=== PATIENT | male | born 1950 | race Caucasian/White ===

== ENCOUNTER → 2020-01-04 | Outpatient (CLI) | payer BC ==
[~2020-01-04] MED LIST: CATHETER FLUSH 10 ML SYR IV PRN
--- NOTE | 2020-01-04 13:38 | Diagnostic Imaging Report ---
RADIOPHARMACEUTICAL: 26.1 mCi Tc-99m -MDP IV INDICATION: Osteomyelitis of the left third toe. COMPARISON: None available. FINDINGS: Three phase imaging was performed of the bilateral feet and ankles with immediate blood flow views, dynamic and static blood pool images, and delayed images provided. Blood flow images demonstrate increased blood flow to the left third toe. Persistent activity is noted at this location on both the blood pool and delayed images. Otherwise, symmetric flow is noted within the bilateral feet. Increased activity is identified involving the region of the first MTP joints bilaterally as well as within the mid feet bilaterally, particularly laterally. Focal activity is noted within the lateral aspect of the left mid foot. IMPRESSION: Findings concerning for osteomyelitis involving the left foot third digit, likely involving the distal phalanx. Scattered degenerative changes, particularly involving the bilateral first MTP joints and bilateral mid feet. Dictated by: Dictated on workstation # [id number]
== END ==
LOC: CARD 09:41
PROVIDERS: ATTEND Podiatrist Foot & Ankle Surgery
DX: M86.8X7 Other osteomyelitis, ankle and foot (principal); M19.072 Primary osteoarthritis, left ankle and foot; M10.9 Gout, unspecified; E11.9 Type 2 diabetes mellitus without complications
CPT/HCPCS: 78315

== ENCOUNTER 2020-01-14 05:38 | Outpatient (CLI) | payer BC ==
[~2020-01-14] VITALS: Ht 180 cm; Wt 101.3 kg
[2020-01-14] MEDS ORDERED: METO50TA15 PO (13:17)
[2020-01-14] MEDS ORDERED: DOXA2TAB2 PO (13:17)
[2020-01-14] MEDS ORDERED: MINO2.5T PO (13:17)
[2020-01-14] MEDS ORDERED: WARF1TAB82 PO (13:17)
[2020-01-14] MEDS ORDERED: LOSA100T57 PO (13:17)
[2020-01-14] MEDS ORDERED: SIMV40TA25 PO (13:17)
[2020-01-14] MEDS ORDERED: ASPI-586 PO (13:17)
[2020-01-14] MEDS ORDERED: GLIM2TAB4 PO (13:17)
[2020-01-14] MEDS ORDERED: CANA100T PO (13:17)
[2020-01-14] MEDS ORDERED: METF-399 PO (13:17)
[2020-01-14] MEDS ORDERED: MODA100T27 PO (13:17)
[2020-01-14] MEDS ORDERED: WARF-48 PO (13:17)
[2020-01-14] MEDS ORDERED: SITA50TA PO (13:17)
== END 2020-01-14 14:10 | disposition home or self-care (01) ==
LOC: PREOP 05:38
PROVIDERS: ATTEND Podiatrist Foot & Ankle Surgery
DX: Z01.818 Encounter for other preprocedural examination (principal)

== ENCOUNTER 2020-01-18 11:31 | Day surgery (SDC) | payer BC ==
[2020-01-18] VITALS (9 sets, daily range): BP systolic 113–181; BP diastolic 61–78
[~2020-01-18] VITALS: Ht 180 cm; Wt 101.3 kg
[~2020-01-18 11:31] MED LIST changes: +ASPI-586 PO; +CANA100T PO; -CATHETER FLUSH 10 ML SYR IV PRN; +DOXA2TAB2 PO; +GLIM2TAB4 PO; +LOSA100T57 PO; +METF-399 PO; +METO50TA15 PO; +MINO2.5T PO; +MODA100T27 PO; +SIMV40TA25 PO; +SITA50TA PO; +WARF-48 PO; +WARF1TAB82 PO
--- OUTSIDE RECORDS SUMMARY | 2020-01-18 11:41 | XMS REPORT | Clinical Summary ---
Author Author Admin, Mitch Leon Organization [facility] Address Unknown Phone Unavailable Allergies, Adverse Reactions, Alerts Allergy Name Reaction Description Start Date Severity Status Pr ovider PENICILLIN HIVES Critical Active Mitch Urbina DO Conditions or Problems Problem Name Problem Code Onset Date Status Entry Date Provider Comment Standard Description Annotate HYPERTENSION 401.9 Active Mitch Urbina DO U nspecified essential hypertension CELLULITIS, GROIN, LEFT 682.2 Resolved Mitch luis DO Cellulitis and abscess of trunk SEROMA 998.13 Resolved Mitch Urbina DO Se mario complicating a procedure HYPERLIPIDEMIA 272.4 Active Renan Hays MD Other and unspecified hyperlipidemia DIABETES, TYPE 2 250.00 Active Renan Hays MD Diabetes mellitus without mention of complication, type II or unspecified type, not stated as uncontrolled FAMILY HISTORY COLON CANCER-MOTHER V16.0 Active 2 Renan Hays MD Family history of malignant neoplasm of gastrointestinal tract REACTIVE HYPOGLYCEMIA 251.2 Resolved Mitch Urbina DO Hypoglycemia, unspecified GOUT, WRIST 274.9 Active Mitch Urbina DO Gout, unspecified LONG-TERM (CURRENT) USE OF ANTICOAGULANTS V58.61 Resol kylah Mitch Urbina DO Long-term (current) use of anticoagulant s HEALTH MAINTENANCE EXAM V70.0 Active Mitch Meraz DO Routine general medical examination at a health care facility CORONARY HEART DISEASE 414.00 Active Mitch Urbina DO Coronary atherosclerosis of unspecified type of vessel, cantwell or graft EDEMA 782.3 Resolved Mitch Urbina DO Ed antonia DEGENERATIVE JOINT DISEASE, KNEES, 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 3 Active Mitch Arnol Carlitos DO Osteoarthrosis, unsp ecified whether generalized or localized, involving lower leg DIZZINESS 780.4 Resolved Mitch Arnol Carlitos DO Dizziness and giddiness CAROTID BRUIT, LEFT 785.9 Active Mitch W Carlitos DO Other symptoms involving cardiovascular system GOUT, RIGHT WRIST 274.9 Resolved Mitch Arnol Carlitos DO Gout, unspecified BRUISE 924.9 Resolved Mitch W Carlitos DO Co ntusion of unspecified site OLECRANON BURSITIS, RIGHT 726.33 Resolved Br uce Arnol Urbina DO Olecranon bursitis UNSPECIFIED ANEMIA 285.9 Resolved Mitch W Carlitos DO Anemia, unspecified Malaise and fatigue 780.79 Resolved Mitch Urbina D O Other malaise and fatigue Cough, chronic 786.2 Resolved Mitch Arnol Carlitos DO Cough Sebaceous cyst, infected 706.2 Resolved Mitch W Carlitos DO Sebaceous cyst Cellulitis 682.9 Resolved Mitch Arnol Carlitos DO Cellulitis and abscess of unspecified sites 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 Carmine benton MD Benign neoplasm of colon Coumadin therapy V58.61 Active Domi Rivera MA Long-term (current) use of anticoagulants Valve replacement V43.3 Active Mitch Urbina DO Heart valve replaced by other means Narcolepsy 347.00 Active Mitch Urbina DO 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 of colon 211.3 Active Joe Williamson APRN Benign neoplasm of colon Diabetic foot ulcer, great toe, left 707.15 Active Mitch Urbina DO Ulcer of other part of foot Lower extremity edema, left 782.3 Active Mitch W Carlitos DO Edema Degenerative joint disease, knee, right 715.96 Active Mitch Urbina DO Osteoarthrosis, unspecified whether generalized or localized, involving lower leg Degenerative joint disease, knee, left 715.96 Active Mitch Urbina DO Osteoarthrosis, unspecified whether generalized or localized, involving lower leg Body Mass Index 32.0-32.9 Adult Active Br ucponce Urbina DO Body Mass Index 32.0-32.9, adult CELLULITIS, GROIN, LEFT ICD-682.2 Inactive Bruc e W Carlitos DO SEROMA ICD-998.13 Inactive Mitch Urbina DO REACTIVE HYPOGLYCEMIA ICD-251.2 Inactive Mitch Urbina DO LONG-TERM (CURRENT) USE OF ANTICOAGULANTS ICD-V58.61 Inactive Mitch Urbina DO EDEMA ICD-782.3 Inactive Mitch Urbina DO DIZZINESS ICD-780.4 Inactive Mitch Urbina DO 10/23 GOUT, RIGHT WRIST ICD-274.9 Inactive Mitch Ambrose Le e DO BRUISE ICD-924.9 Inactive Mitch Urbina DO OLECRANON BURSITIS, RIGHT ICD-726.33 Inactive Mitch W Carlitos DO UNSPECIFIED ANEMIA ICD-285.9 Inactive Mitch W L ee DO Malaise and fatigue ICD-780.79 Inactive Mitch W Carlitos DO Cough, chronic ICD-786.2 Inactive Mitch Urbina D O Sebaceous cyst, infected ICD-706.2 Inactive Mtich Arnol Carlitos DO Cellulitis ICD-682.9 Inactive Mitch Urbina DO 10/23 Medication List Medication Instructions Start Date Stop Date Generic Name [facility] [place] Status Provider Patient Instruction GLIMEPIRIDE 4 MG ORAL TABLET 1 tablet by mouth twice daily f or diabetes GLIMEPIRIDE 96556003004 Active Mitch Urbina DO Active GLIMEPIRIDE 2 MG ORAL TABLET 1 po BID GLIMEPI RIDE 77277890269 No Longer Active Mitch Urbina DO Active AMLODIPINE BESYLATE 5 MG ORAL TABLET 1 tablet by mouth daily AMLODIPINE BESYLATE 76722699329 Active Mitch Urbina DO Active PROVIGIL 200 MG ORAL TABLET 1/2 tab po q day MODA FINIL 70084779803 Active Renee Oconnor SITE DAMAGE PREVENTION TECHNICIAN Active FAMOTIDINE 20 MG ORAL TABLET by mouth twice a day 2017 FAMOTIDINE 41256450682 No Longer Active Mitch Urbina DO Active COLCRYS 0.6 MG ORAL TABLET 1 tab qid prn gout C OLCHICINE 04076291502 No Longer Active Mitch Urbina DO Active KEFLEX 500 MG ORAL CAPSULE 1 po qid CEPHALEXI N 95881034862 No Longer Active Mitch Urbina DO Active LOSARTAN POTASSIUM 100 MG ORAL TABLET 1 pill by mouth daily, for blood pressure LOSARTAN POTASSIUM 93403732484 Active Ana Ocampo Active AMLODIPINE BESYLATE 5 MG ORAL TABLET 1 tablet by mouth daily 201 01/20/04 AMLODIPINE BESYLATE 14073434783 No Longer Active Joe fulton APRN Active MITIGARE 0.6 MG ORAL CAPSULE 2 capsules at onset of go ut pain, then take one capsule at 1 hour if symptoms persist. COLCHICINE 59 696627271 Active Mitch Urbina DO Active COUMADIN 1 MG ORAL TABLET 2 tabs orally daily with the 5mg tab to equal 7mg daily WARFARIN SODIUM 47480938228 Active Mitch Urbina DO Active INVOKANA 100 MG ORAL TABLET 1 tablet orally daily CANAGLIFLOZIN 52487438291 Active Renee Elvin DE [place] ROSA Active MINOXIDIL 2.5 MG ORAL TABLET 1 tablet daily for high blood press ure MINOXIDIL 10474529688 Active Renee Josepheder DE [place] Active MECLIZINE HCL 25 MG ORAL TABLET 1 po tid 3 days, then 1/2 ta b tid 3 days MECLIZINE HCL 76993089037 No Longer Active Corey SEGURA Active ALLOPURINOL 300 MG ORAL TABLET Take 1 tablet by mouth daily 2012 ALLOPURINOL 90445741440 No Longer Active Corey SEGURA Active CLONIDINE HCL 0.1 MG ORAL TABLET 1 po bid 7 days, then 1/2 t ab po bid 7 days CLONIDINE HCL 14709451267 No Longer Active Corey SEGURA Active COUMADIN 5 MG ORAL TABLET 1 tab PO daily WARFAR IN SODIUM 19907372090 Active Renee Oconnor LPN Active COUMADIN 4 MG ORAL TABLET 1 tablet daily WARFAR IN SODIUM 14810599494 No Longer Active Corey SEGURA Active POLYTRIM 25804-4.1 UNIT/ML-% OPHTHALMIC SOLUTION 1 rui p in affected eye every 3 hours while awake x 7 days POLYMYXIN B-TRIMETHOP RIM 64851341579 No Longer Active Corey SEGURA Active LOSARTAN POTASSIUM-HCTZ 100-12.5 MG ORAL TABLET 1 by m outh daily for high blood pressure LOSARTAN POTASSIUM-HCTZ 76269118750 No Longer A ctive Mitch Urbina DO Active LISINOPRIL-HYDROCHLOROTHIAZIDE 20-12.5 MG ORAL TABLET 1 tab by m outh daily LISINOPRIL-HYDROCHLOROTHIAZIDE 16982615248 No Longer Active Mitch Urbina DO Active LISINOPRIL 20 MG ORAL TABLET 1 tab po at HS LIS INOPRIL 37382831804 No Longer Active Mitch Urbina DO Active COUMADIN 5 MG ORAL TABLET 1 by mouth every other day 2 WARFARIN SODIUM 18211631165 No Longer Active Mitch Urbina DO Active COUMADIN 6 MG ORAL TABLET 1 by mouth every other day 2 WARFARIN SODIUM 93946246681 No Longer Active Mitch Urbina DO Active SIMVASTATIN 40 MG ORAL TABLET 1 tab daily at bedtime SIMVASTATIN 17379953785 Active Mitch Urbina DO Active SIMVASTATIN 20 MG ORAL TABLET 1 tab daily at bedtime 2 SIMVASTATIN 69531640482 No Longer Active Mitch Urbina DO Active LOVENOX 100 MG/ML SUBCUTANEOUS SOLUTION One injection twice a da y ENOXAPARIN SODIUM 22679718807 No Longer Active Carmine Yusuf MD Active JANUVIA 50 MG ORAL TABLET Take one by mouth daily SITAGLIPTIN PHOSPHATE 20670088333 Active Renee Elvin DE LA ROSA Active JANUVIA 100 MG ORAL TABLET 1/2 by mouth every day 2011 SITAGLIPTIN PHOSPHATE 09550131473 No Longer Active Bijal Segal RN Acti ve METFORMIN HCL 500 MG ORAL TABLET 2 by mouth twice daily METFORMIN HCL 45420944028 No Longer Active Renee Oconnor LPN Active COLCRYS 0.6 MG ORAL TABLET 1 po q 6 hours prn gout pain COLCHICINE 81667642145 No Longer Active Camila Reese Active LISINOPRIL 5 MG ORAL TABLET 1 by mouth every day 11/17 LISINOPRIL 05686661124 No Longer Active Nguyenmolly Perez Active KLOR-CON 20 MEQ ORAL PACKET Take one by mouth daily 09/10/08 POTASSIUM CHLORIDE 04560211180 No Longer Active Nguyenmolly Perez Active FUROSEMIDE 40 MG ORAL TABLET 1 by mouth daily F UROSEMIDE 70459563547 No Longer Active Nguyen Ana Active PROVIGIL 100 MG ORAL TABLET Take one by mouth daily 08/20/04 MODAFINIL 35293022369 No Longer Active Mitch Urbina DO Active BACTRIM DS 800-160 MG ORAL TABLET 1 tab by mouth twice daily 201 10/19/09 TRIMETHOPRIM-SULFAMETHOXAZOLE 95499506503 No Longer Active Elian Hays MD Active ADULT ASPIRIN LOW STRENGTH 81 MG ORAL TABLET DISINTEGR ATING 1 by mouth every daily ASPIRIN 52056310240 Active Mitch Urbina DO Ac tive METOPROLOL TARTRATE 50 MG ORAL TABLET 1 by mouth twice daily METOPROLOL TARTRATE 58586969690 Active Ana Ocampo Activ e BACTRIM DS 800-160 MG ORAL TABLET 1 tab by mouth twice daily 201 10/19/09 BACTRIM DS 800-160 MG ORAL TABLET 879736 TRIMETHOPRIM-SULFAMETHOXAZOLE Inactive PROVIGIL 100 MG ORAL TABLET Take one by mouth daily 08/20/04 PROVIGIL 100 MG ORAL TABLET 945852 MODAFINIL Inactive FUROSEMIDE 40 MG ORAL TABLET 1 by mouth daily FUROSEMIDE 40 MG ORAL TABLET 775097 FUROSEMIDE Inactive KLOR-CON 20 MEQ ORAL PACKET Take one by mouth daily 09/10/08 KLOR- CON 20 MEQ ORAL PACKET 9450726 POTASSIUM CHLORIDE Inactive LISINOPRIL 5 MG ORAL TABLET 1 by mouth every day 11/17 LISINOPRIL 5 MG ORAL TABLET 643891 LISINOPRIL Inactive COLCRYS 0.6 MG ORAL TABLET 1 po q 6 hours prn gout pain COLCRYS 0.6 MG ORAL TABLET 421950 COLCHICINE Inactive JANUVIA 100 MG ORAL TABLET 1/2 by mouth every day 2011 JANUVIA 100 MG ORAL TABLET SITAGLIPTIN PHOSPHATE Inactive SIMVASTATIN 20 MG ORAL TABLET 1 tab daily at bedtime 2 SIMVASTATIN 20 MG ORAL TABLET 606703 SIMVASTATIN Inactive COUMADIN 6 MG ORAL TABLET 1 by mouth every other day 2 COUMADIN 6 MG ORAL TABLET 698000 WARFARIN SODIUM Inactive COUMADIN 5 MG ORAL TABLET 1 by mouth every other day 2 COUMADIN 5 MG ORAL TABLET 720462 WARFARIN SODIUM Inactive LISINOPRIL 20 MG ORAL TABLET 1 tab po at HS LISINOPRIL 20 MG ORAL TABLET 889274 LISINOPRIL Inactive LISINOPRIL-HYDROCHLOROTHIAZIDE 20-12.5 MG ORAL TABLET 1 tab by m outh daily LISINOPRIL-HYDROCHLOROTHIAZIDE 20-12.5 MG ORAL TABLET 603311 LISINOPRIL-HYDROCHLOROTHIAZIDE Inactive POLYTRIM 03801-3.1 UNIT/ML-% OPHTHALMIC SOLUTION 1 rui p in affected eye every 3 hours while awake x 7 days POLYTRIM 1000 0-0.1 UNIT/ML-% OPHTHALMIC SOLUTION 447550 POLYMYXIN B-TRIMETHOPRIM Inactive COUMADIN 4 MG ORAL TABLET 1 tablet daily COUMADIN 4 MG ORAL TABLET 887822 WARFARIN SODIUM Inactive CLONIDINE HCL 0.1 MG ORAL TABLET 1 po bid 7 days, then 1/2 t ab po bid 7 days CLONIDINE HCL 0.1 MG ORAL TABLET 006597 CLONIDIN E HCL Inactive ALLOPURINOL 300 MG ORAL TABLET Take 1 tablet by mouth daily 2012 ALLOPURINOL 300 MG ORAL TABLET 575600 ALLOPURINOL I nactive MECLIZINE HCL 25 MG ORAL TABLET 1 po tid 3 days, then 1/2 ta b tid 3 days MECLIZINE HCL 25 MG ORAL TABLET 948846 MECLIZINE HCL Inactive AMLODIPINE BESYLATE 5 MG ORAL TABLET 1 tablet by mouth daily 201 01/20/04 AMLODIPINE BESYLATE 5 MG ORAL TABLET 757838 AMLODIPINE BESYLATE Inactive KEFLEX 500 MG ORAL CAPSULE 1 po qid K EFLEX 500 MG ORAL CAPSULE 340164 CEPHALEXIN Inactive COLCRYS 0.6 MG ORAL TABLET 1 tab qid prn gout COLCRYS 0.6 MG ORAL TABLET 035864 COLCHICINE Inactive FAMOTIDINE 20 MG ORAL TABLET by mouth twice a day 2017 FAMOTIDINE 20 MG ORAL TABLET 803380 FAMOTIDINE Inactive GLIMEPIRIDE 2 MG ORAL TABLET 1 po BID GLIMEPIRIDE 2 MG ORAL TABLET 397037 GLIMEPIRIDE Inactive LOVENOX 100 MG/ML SUBCUTANEOUS SOLUTION One injection twice a da y LOVENOX 100 MG/ML SUBCUTANEOUS SOLUTION 756093 ENOXAPAR IN SODIUM Inactive Vital Signs Date Name Value Unit Range Description blood pressure, diastolic 78 mm[Hg] BP mane blood pressure, systolic 165 mm[Hg] BP sys height E&M 70 [in_us] Bdy height pulse rate E&M 74 /min Heart rate temperature E&M 97.8 [degF] Body temp erature weight E&M 223 [lb_av] Weight Measure d blood pressure, diastolic 81 mm[Hg] BP mane blood pressure, systolic 161 mm[Hg] BP sys height E&M 70 [in_us] Bdy height pulse rate E&M 65 /min Heart rate temperature E&M 98.1 [degF] Body temp erature weight E&M 228.5 [lb_av] Weight Measure d Diagnostic Results Date Name Value Unit Range Description Lab Report: CBC, MICROALB/CREAT W/RATIO - Chemistry albumin/creatinine ratio, urine <30 mg/g Normal mg/g m g/g{creat} 0-29 Lab Report: CBC, MICROALB/CREAT W/RATIO - Hematology leukocyte count, blood 6.4 10^3/MM^3 10*3/mm3 4.6-10.2 erythrocyte (RBC) count 4.96 10^6/MM^3 10*6/mm3 4.50-6.5 0 hemoglobin, blood 14.2 g/dL 14.0-18.0 hematocrit, blood 43.3 % 40.0-54.0 mean corpuscular volume, RBC 87 fL 80-97 mean corpuscular hemoglobin, RBC 28.6 pg 27. 0-31.2 mean corpuscular hemoglobin concentration, RBC 32.7 G/DL % 31.8-35.4 red blood cell distribution width 16.2 % 11 .6-14.8 platelet count 238 10^3/MM^3 10*3/mm3 142-424 Lab Report: CBC, MICROALB/CREAT W/RATIO - Lab microalbumin, urine 30 mg/L 0-19 Lab Report: HGBA1C - Chemistry hemoglobin A1C, blood, as % of total hemoglobin 7.4 % 4.3-6.0 Encounters Code Encounter Date Provider Facility CPT-85498 [id number] Vst-Est Level IV 10:52:00 PATTERN CHAIN BUILDER Stephy Urbina [facility] CPT-01074 Level 3 Est. Patient 18:25:53 CDT Mitch luis [facility] CPT-29556 Level 3 Est. Patient 19:43:34 CDT Mitch luis [facility] CPT-95785 Level 4 Est. Patient 09:30:18 CDT Mitch luis [facility] CPT-14683 Level 3 Est. Patient 15:10:14 CDT Joe Gomez anh [facility] CPT-60266 Level 3 Est. Patient 15:03:46 CDT Joe kamara [facility] CPT-37189 Level 3 Est. Patient 14:21:06 CDT Mitch luis [facility] CPT-96940 Level 3 Est. Patient 14:52:06 CDT Joe Jason kamara [facility] CPT-67825 Level 3 Est. Patient 09:34:30 PATTERN CHAIN BUILDER Mitch luis [facility] CPT-08945 Level 3 Est. Patient 09:37:15 CDT Mitch luis [facility] CPT-67241 Level 3 Est. Patient 17:01:00 PATTERN CHAIN BUILDER Mitch luis [facility] CPT-12890 Level 3 Est. Patient 13:53:19 PATTERN CHAIN BUILDER Mitch luis [facility] CPT-83482 Level 3 Est. Patient 19:19:37 PATTERN CHAIN BUILDER Mitch luis [facility] CPT-23055 Level 3 Est. Patient 13:25:53 PATTERN CHAIN BUILDER Tavo toure MD [facility] CPT-11163 Level 3 Est. Patient 18:17:28 CDT Mitch luis [facility] CPT-72443 Level 3 Est. Patient 15:22:57 CDT Mitch luis [facility] CPT-76767 Level 3 Est. Patient 18:21:50 CDT Mitch luis [facility] CPT-13249 Level 3 Est. Patient 18:20:38 CDT Mitch luis [facility] CPT-05652 Level 3 Est. Patient 15:37:55 CDT Mitch luis [facility] CPT-62244 Level 2 Est. Patient 15:54:44 CDT Carmine benton MD [facility] CPT-42337 Level 3 Est. Patient 21:46:01 PATTERN CHAIN BUILDER Mitch luis [facility] CPT-84508 Level 3 Est. Patient 22:15:50 CDT Mitch luis [facility] CPT-82477 Level 3 Est. Patient 10:48:15 CDT Mitch luis [facility] CPT-13590 Level 3 Est. Patient 23:20:57 CDT Tavo toure MD [facility] CPT-61968 Level 3 Est. Patient 16:26:13 CDT Mitch Arnol luis [facility] Procedures Code Procedure Name Date Entry Date Standard Desc ription CPT-JTINJ Asp/Joint Injection 18:47:02 CDT CPT-28742 Venipuncture Draw Fee 09:26:17 CDT CPT-42398 PT/INR - LAB USE ONLY 13:32:49 PATTERN CHAIN BUILDER CPT-36177 Venipuncture Draw Fee 13:32:49 PATTERN CHAIN BUILDER CPT-80431 PT/INR - LAB USE ONLY 10:34:49 PATTERN CHAIN BUILDER CPT-47027 Venipuncture Draw Fee 10:34:48 PATTERN CHAIN BUILDER CPT-30686 PT/INR - LAB USE ONLY 09:22:03 PATTERN CHAIN BUILDER CPT-06890 Venipuncture Draw Fee 09:22:02 PATTERN CHAIN BUILDER CPT-78013 Hemoccult IFOBT - LAB USE ONLY 10:27:22 CDT CPT-25310 Venipuncture Draw Fee 08:27:08 CDT CPT-52314 Liver Profile - LAB USE ONLY 08:27:07 CDT 2 CPT-98045 Microalbumin - LAB USE ONLY 08:27:07 CDT 20 25/05/09 CPT-46090 PT/INR - LAB USE ONLY 08:27:07 CDT CPT-42237 HGBA1C - LAB USE ONLY 08:27:07 CDT CPT-56220 CBC - LAB USE ONLY 08:27:07 CDT CPT-05741 Venipuncture Draw Fee 11:09:14 CDT CPT-22758 Venipuncture Draw Fee 08:32:21 PATTERN CHAIN BUILDER CPT-66866 Venipuncture Draw Fee 09:38:56 PATTERN CHAIN BUILDER CPT-79191 No Charge Offi Visit 21:36:07 CDT 1 CPT-18737 Venipuncture Draw Fee 10:13:28 PATTERN CHAIN BUILDER CPT-25911 Venipuncture Draw Fee 08:31:11 CDT CPT-59158 Aspir/Inject Med Joint 18:17:28 CDT CPT-45460 Venipuncture Draw Fee 10:13:30 CDT CPT-78117 Venipuncture Draw Fee 08:31:43 PATTERN CHAIN BUILDER CPT-JTINJ Joint Injection 18:34:50 CDT CPT-91757 Knee 3V 12:25:09 CDT CPT-08518 Venipuncture Draw Fee 12:15:57 CDT CPT-060 Medical Surveillance Exam 21:31:43 CDT 2011 CPT-11289 Venipuncture Draw Fee 08:32:05 PATTERN CHAIN BUILDER CPT-OV Office Visit 18:19:06 CDT
--- OUTSIDE RECORDS SUMMARY | 2020-01-18 11:41 | XMS REPORT | Clinical Summary ---
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 3 Active Mitch Arnol Carlitos DO Osteoarthrosis, unsp ecified whether generalized or localized, involving lower leg DIZZINESS 780.4 Resolved Mitch Arnol Carlitos DO Dizziness and giddiness CAROTID BRUIT, LEFT 785.9 Active Mitch W Carlitos DO Other symptoms involving cardiovascular system GOUT, RIGHT WRIST 274.9 Resolved Mitch Ambrose Carlitos DO Gout, unspecified BRUISE 924.9 Resolved Mitch W Carlitos DO Co ntusion of unspecified site OLECRANON BURSITIS, RIGHT 726.33 Resolved Br ucponce Urbina DO Olecranon bursitis UNSPECIFIED ANEMIA 285.9 Resolved Mitch W Carlitos DO Anemia, unspecified Malaise and fatigue 780.79 Resolved Mitch Urbina D O Other malaise and fatigue Cough, chronic 786.2 Resolved Mitch W Carlitos DO Cough Sebaceous cyst, infected 706.2 [...] DO OLECRANON BURSITIS, RIGHT ICD-726.33 Inactive Mitch Urbina DO UNSPECIFIED ANEMIA ICD-285.9 Inactive Mitch W L ee DO Malaise and fatigue ICD-780.79 Inactive Mitch W Carlitos DO Cough, chronic ICD-786.2 Inactive Mitch Urbina D O Sebaceous cyst, infected ICD-706.2 Inactive Mitch Urbina DO Cellulitis ICD-682.9 Inactive Mitch Urbina DO 10/23 Medication List Medication Instructions Start Date Stop Date Generic Name [facility] Status Provider Patient Instruction GLIMEPIRIDE 4 MG ORAL TABLET 1 tablet by mouth twice daily f or diabetes GLIMEPIRIDE 76077898792 Active Mitch Urbina DO Active GLIMEPIRIDE 2 MG ORAL TABLET 1 po BID GLIMEPI RIDE 97906151050 No Longer Active Mitch Urbina DO Active AMLODIPINE BESYLATE 5 MG ORAL TABLET 1 tablet by mouth daily AMLODIPINE BESYLATE 03318130154 Active Mitch Urbina DO Active PROVIGIL 200 MG ORAL TABLET 1/2 tab po q day MODA FINIL 93256637885 Active Renee Oconnor LPN Active FAMOTIDINE 20 MG ORAL TABLET by mouth twice a day 2017 FAMOTIDINE 96046828243 No Longer Active Mitch Urbina DO Active COLCRYS 0.6 MG ORAL TABLET 1 tab qid prn gout C OLCHICINE 20487689414 No Longer Active Mitch Urbina DO Active KEFLEX 500 MG ORAL CAPSULE 1 po qid CEPHALEXI N 94534786957 No Longer Active Mitch Urbina DO Active LOSARTAN POTASSIUM 100 MG ORAL TABLET 1 pill by mouth daily, for blood pressure LOSARTAN POTASSIUM 27807144143 Active Ana Ocampo Active AMLODIPINE BESYLATE 5 MG ORAL TABLET 1 tablet by mouth daily 201 01/20/04 AMLODIPINE BESYLATE 33526741241 No Longer Active Joe fulton APRN Active MITIGARE 0.6 MG ORAL CAPSULE 2 capsules at onset of go ut pain, then take one capsule at 1 hour if symptoms persist. COLCHICINE 59 156103654 Active Mitch Urbina Active COUMADIN 1 MG ORAL TABLET 2 tabs orally daily with the 5mg tab to equal 7mg daily WARFARIN SODIUM 17544207237 Active Renee Oconnor LPN Active INVOKANA 100 MG ORAL TABLET 1 tablet orally daily CANAGLIFLOZIN 97269679062 Active Renee Quirogamonserrat DE [place] ROS[place] Active MINOXIDIL 2.5 MG ORAL TABLET 1 tablet daily for high blood press ure MINOXIDIL 82428985013 Active Renee Oconnor INSTRUCTOR DANCING Active MECLIZINE HCL 25 MG ORAL TABLET 1 po tid 3 days, then 1/2 ta b tid 3 days MECLIZINE HCL 50537546150 No Longer Active Corey SEGURA Active ALLOPURINOL 300 MG ORAL TABLET Take 1 tablet by mouth daily 2012 ALLOPURINOL 32446762690 No Longer Active Corey SEGURA Active CLONIDINE HCL 0.1 MG ORAL TABLET 1 po bid 7 days, then 1/2 t ab po bid 7 days CLONIDINE HCL 85670295158 No Longer Active Corey SEGURA Active COUMADIN 5 MG ORAL TABLET 1 tab PO daily WARFAR IN SODIUM 38553200376 Active Renee Elvin DE [place] Active COUMADIN 4 MG ORAL TABLET 1 tablet daily WARFAR IN SODIUM 75159446101 No Longer Active Corey SEGURA Active POLYTRIM 03080-0.1 UNIT/ML-% OPHTHALMIC SOLUTION 1 rui p in affected eye every 3 hours while awake x 7 days POLYMYXIN B-TRIMETHOP RIM 74433319743 No Longer Active Corey SEGURA Active LOSARTAN POTASSIUM-HCTZ 100-12.5 MG ORAL TABLET 1 by m outh daily for high blood pressure LOSARTAN POTASSIUM-HCTZ 44350167911 No Longer A ctive Mitch Urbina DO Active LISINOPRIL-HYDROCHLOROTHIAZIDE 20-12.5 MG ORAL TABLET 1 tab by m outh daily LISINOPRIL-HYDROCHLOROTHIAZIDE 63772407950 No Longer Active Mitch Urbina DO Active LISINOPRIL 20 MG ORAL TABLET 1 tab po at HS LIS INOPRIL 23636434616 No Longer Active Mitch Urbina DO Active COUMADIN 5 MG ORAL TABLET 1 by mouth every other day 2 WARFARIN SODIUM 62340155561 No Longer Active Mitch Urbina DO Active COUMADIN 6 MG ORAL TABLET 1 by mouth every other day 2 WARFARIN SODIUM 94169009461 No Longer Active Mitch Urbina DO Active SIMVASTATIN 40 MG ORAL TABLET 1 tab daily at bedtime SIMVASTATIN 07724334475 Active Mitch Urbina DO Active SIMVASTATIN 20 MG ORAL TABLET 1 tab daily at bedtime 2 SIMVASTATIN 87202907605 No Longer Active Mitch Urbina DO Active LOVENOX 100 MG/ML SUBCUTANEOUS SOLUTION One injection twice a da y ENOXAPARIN SODIUM 10140485137 No Longer Active Carmine Yusuf MD Active JANUVIA 50 MG ORAL TABLET Take one by mouth daily SITAGLIPTIN PHOSPHATE 25713828044 Active Renee Oconnoreder DE LA ROSA Active JANUVIA 100 MG ORAL TABLET 1/2 by mouth every day 2011 SITAGLIPTIN PHOSPHATE 05180165803 No Longer Active Bijal Segal RN Acti ve METFORMIN HCL 500 MG ORAL TABLET 2 by mouth twice daily METFORMIN HCL 43141155268 No Longer Active Renee Oconnor LPN Active COLCRYS 0.6 MG ORAL TABLET 1 po q 6 hours prn gout pain COLCHICINE 71055558476 No Longer Active Camila Reese Active LISINOPRIL 5 MG ORAL TABLET 1 by mouth every day 11/17 LISINOPRIL 72185386151 No Longer Active Nguyen Perez Active KLOR-CON 20 MEQ ORAL PACKET Take one by mouth daily 09/10/08 POTASSIUM CHLORIDE 26011061880 No Longer Active Nguyenmolly Perez Active FUROSEMIDE 40 MG ORAL TABLET 1 by mouth daily F UROSEMIDE 71840618747 No Longer Active Nguyen Ana Active PROVIGIL 100 MG ORAL TABLET Take one by mouth daily 08/20/04 MODAFINIL 94176754007 No Longer Active iMtch Urbina DO Active BACTRIM DS 800-160 MG ORAL TABLET 1 tab by mouth twice daily 201 10/19/09 TRIMETHOPRIM-SULFAMETHOXAZOLE 57590457394 No Longer Active Elian Hays MD Active ADULT ASPIRIN LOW STRENGTH 81 MG ORAL TABLET DISINTEGR ATING 1 by mouth every daily ASPIRIN 99069282823 Active Mitch Urbina DO Ac tive METOPROLOL TARTRATE 50 MG ORAL TABLET 1 by mouth twice daily METOPROLOL TARTRATE 39092979493 Active Anabella Ocampo Activ e BACTRIM DS 800-160 MG ORAL TABLET 1 tab by mouth twice daily 201 10/19/09 BACTRIM DS 800-160 MG ORAL TABLET 781354 TRIMETHOPRIM-SULFAMETHOXAZOLE Inactive PROVIGIL 100 MG ORAL TABLET Take one by mouth daily 08/20/04 PROVIGIL 100 MG ORAL TABLET 192693 MODAFINIL Inactive FUROSEMIDE 40 MG ORAL TABLET 1 by mouth daily FUROSEMIDE 40 MG ORAL TABLET 844432 FUROSEMIDE Inactive KLOR-CON 20 MEQ ORAL PACKET Take one by mouth daily 09/10/08 KLOR- CON 20 MEQ ORAL PACKET 2621711 POTASSIUM CHLORIDE Inactive LISINOPRIL 5 MG ORAL TABLET 1 by mouth every day 11/17 LISINOPRIL 5 MG ORAL TABLET 583351 LISINOPRIL Inactive COLCRYS 0.6 MG ORAL TABLET 1 po q 6 hours prn gout pain COLCRYS 0.6 MG ORAL TABLET 554627 COLCHICINE Inactive JANUVIA 100 MG ORAL TABLET 1/2 by mouth every day 2011 JANUVIA 100 MG ORAL TABLET SITAGLIPTIN PHOSPHATE Inactive SIMVASTATIN 20 MG ORAL TABLET 1 tab daily at bedtime 2 SIMVASTATIN 20 MG ORAL TABLET 923724 SIMVASTATIN Inactive COUMADIN 6 MG ORAL TABLET 1 by mouth every other day 2 COUMADIN 6 MG ORAL TABLET 670574 WARFARIN SODIUM Inactive COUMADIN 5 MG ORAL TABLET 1 by mouth every other day 2 COUMADIN 5 MG ORAL TABLET 873166 WARFARIN SODIUM Inactive LISINOPRIL 20 MG ORAL TABLET 1 tab po at HS LISINOPRIL 20 MG ORAL TABLET 780821 LISINOPRIL Inactive LISINOPRIL-HYDROCHLOROTHIAZIDE 20-12.5 MG ORAL TABLET 1 tab by m outh daily LISINOPRIL-HYDROCHLOROTHIAZIDE 20-12.5 MG ORAL TABLET 247103 LISINOPRIL-HYDROCHLOROTHIAZIDE Inactive POLYTRIM 88371-1.1 UNIT/ML-% OPHTHALMIC SOLUTION 1 rui p in affected eye every 3 hours while awake x 7 days POLYTRIM 1000 0-0.1 UNIT/ML-% OPHTHALMIC SOLUTION 020063 POLYMYXIN B-TRIMETHOPRIM Inactive COUMADIN 4 MG ORAL TABLET 1 tablet daily COUMADIN 4 MG ORAL TABLET 821760 WARFARIN SODIUM Inactive CLONIDINE HCL 0.1 MG ORAL TABLET 1 po bid 7 days, then 1/2 t ab po bid 7 days CLONIDINE HCL 0.1 MG ORAL TABLET 739634 CLONIDIN E HCL Inactive ALLOPURINOL 300 MG ORAL TABLET Take 1 tablet by mouth daily 2012 ALLOPURINOL 300 MG ORAL TABLET 466660 ALLOPURINOL I nactive MECLIZINE HCL 25 MG ORAL TABLET 1 po tid 3 days, then 1/2 ta b tid 3 days MECLIZINE HCL 25 MG ORAL TABLET 706605 MECLIZINE HCL Inactive AMLODIPINE BESYLATE 5 MG ORAL TABLET 1 tablet by mouth daily 201 01/20/04 AMLODIPINE BESYLATE 5 MG ORAL TABLET 057236 AMLODIPINE BESYLATE Inactive KEFLEX 500 MG ORAL CAPSULE 1 po qid K EFLEX 500 MG ORAL CAPSULE 171820 CEPHALEXIN Inactive COLCRYS 0.6 MG ORAL TABLET 1 tab qid prn gout COLCRYS 0.6 MG ORAL TABLET 419822 COLCHICINE Inactive FAMOTIDINE 20 MG ORAL TABLET by mouth twice a day 2017 FAMOTIDINE 20 MG ORAL TABLET 694268 FAMOTIDINE Inactive GLIMEPIRIDE 2 MG ORAL TABLET 1 po BID GLIMEPIRIDE 2 MG ORAL TABLET 517191 GLIMEPIRIDE Inactive LOVENOX 100 MG/ML SUBCUTANEOUS SOLUTION One injection twice a da y LOVENOX 100 MG/ML SUBCUTANEOUS SOLUTION 241491 ENOXAPAR IN SODIUM Inactive Vital Signs Date [...] 4.3-6.0 Encounters Code Encounter Date Provider Facility CPT-91123 [id number] Vst-Est Level IV 10:52:00 [employer] Stephy Urbina [facility] CPT-18906 Level 3 Est. Patient 18:25:53 CDT Mitch luis [facility] CPT-54286 Level 3 Est. Patient 19:43:34 CDT Mitch luis [facility] CPT-63940 Level 4 Est. Patient 09:30:18 CDT Mitch luis [facility] CPT-29118 Level 3 Est. Patient 15:10:14 CDT Joe kamara Formerly named [facility] CPT-39122 Level 3 Est. Patient 15:03:46 CDT Joe kamara Formerly named [facility] CPT-52675 Level 3 Est. Patient 14:21:06 CDT Mitch luis [facility] CPT-21924 Level 3 Est. Patient 14:52:06 CDT Joe kamara Formerly named [facility] CPT-10768 Level 3 Est. Patient 09:34:30 [employer] Mitch luis [facility] CPT-04292 Level 3 Est. Patient 09:37:15 CDT Mitch luis [facility] CPT-13802 Level 3 Est. Patient 17:01:00 [employer] Mitch luis [facility] CPT-35729 Level 3 Est. Patient 13:53:19 [employer] Mitch luis [facility] CPT-98893 Level 3 Est. Patient 19:19:37 [employer] Mitch luis [facility] CPT-27544 Level 3 Est. Patient 13:25:53 [employer] Tavo toure MD [facility] CPT-13526 Level 3 Est. Patient 18:17:28 CDT Mitch Arnol luis [facility] CPT-17026 Level 3 Est. Patient 15:22:57 CDT Mitch Arnol luis [facility] CPT-46141 Level 3 Est. Patient 18:21:50 CDT Mitch luis [facility] CPT-45264 Level 3 Est. Patient 18:20:38 CDT Mitch Arnol luis [facility] CPT-15531 Level 3 Est. Patient 15:37:55 CDT Mitch luis [facility] CPT-74578 Level 2 Est. Patient 15:54:44 CDT Carmine benton MD [facility] CPT-00489 Level 3 Est. Patient 21:46:01 [employer] Mitch luis [facility] CPT-85841 Level 3 Est. Patient 22:15:50 CDT Mitch luis [facility] CPT-44785 Level 3 Est. Patient 10:48:15 CDT Mitch luis [facility] CPT-13964 Level 3 Est. Patient 23:20:57 CDT Tavo toure MD [facility] CPT-56951 Level 3 Est. Patient 16:26:13 CDT Mitch Castellano janelle [facility] Procedures Code Procedure Name Date Entry Date Standard Desc ription CPT-JTINJ Asp/Joint Injection 18:47:02 CDT CPT-97093 Venipuncture Draw Fee 09:26:17 CDT CPT-24200 PT/INR - LAB USE ONLY 13:32:49 [employer] CPT-89961 Venipuncture Draw Fee 13:32:49 [employer] CPT-01509 PT/INR - LAB USE ONLY 10:34:49 [employer] CPT-62909 Venipuncture Draw Fee 10:34:48 [employer] CPT-89443 PT/INR - LAB USE ONLY 09:22:03 [employer] CPT-15303 Venipuncture Draw Fee 09:22:02 [employer] CPT-29815 Hemoccult IFOBT - LAB USE ONLY 10:27:22 CDT CPT-81393 Venipuncture Draw Fee 08:27:08 CDT CPT-88439 Liver Profile - LAB USE ONLY 08:27:07 CDT 2 CPT-40873 Microalbumin - LAB USE ONLY 08:27:07 CDT 20 25/05/09 CPT-09373 PT/INR - LAB USE ONLY 08:27:07 CDT CPT-24441 HGBA1C - LAB USE ONLY 08:27:07 CDT CPT-85590 CBC - LAB USE ONLY 08:27:07 CDT CPT-14296 Venipuncture Draw Fee 11:09:14 CDT CPT-24925 Venipuncture Draw Fee 08:32:21 [employer] CPT-22521 Venipuncture Draw Fee 09:38:56 [employer] CPT-46850 No Charge Offi Visit 21:36:07 CDT 1 CPT-49258 Venipuncture Draw Fee 10:13:28 [employer] CPT-49619 Venipuncture Draw Fee 08:31:11 CDT CPT-28376 Aspir/Inject Med Joint 18:17:28 CDT CPT-17200 Venipuncture Draw Fee 10:13:30 CDT CPT-78443 Venipuncture Draw Fee 08:31:43 [employer] CPT-JTINJ Joint Injection 18:34:50 CDT CPT-21035 Knee 3V 12:25:09 CDT CPT-68497 Venipuncture Draw Fee 12:15:57 CDT CPT-060 Medical Surveillance Exam 21:31:43 CDT 2011 CPT-47516 Venipuncture Draw Fee 08:32:05 [employer] CPT-OV Office Visit 18:19:06 CDT
--- OUTSIDE RECORDS SUMMARY | 2020-01-18 11:42 | XMS REPORT | Clinical Summary ---
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 of [...] O Sebaceous cyst, infected ICD-706.2 Inactive Mitch Arnol Carlitos DO Cellulitis ICD-682.9 Inactive Mitch Urbina DO 10/23 Medication List Medication Instructions Start Date Stop Date Generic Name [facility] Status Provider Patient Instruction GLIMEPIRIDE 4 MG ORAL TABLET 1 tablet by mouth twice daily f or diabetes GLIMEPIRIDE 02304322701 Active Mitch Urbina DO Active GLIMEPIRIDE 2 MG ORAL TABLET 1 po BID GLIMEPI RIDE 37647631595 No Longer Active Mitch Urbina DO Active AMLODIPINE BESYLATE 5 MG ORAL TABLET 1 tablet by mouth daily AMLODIPINE BESYLATE 48987016559 Active Mitch Urbina DO Active PROVIGIL 200 MG ORAL TABLET 1/2 tab po q day MODA FINIL 34195426421 Active Renee Oconnor LPN Active FAMOTIDINE 20 MG ORAL TABLET by mouth twice a day 2017 FAMOTIDINE 51288344842 No Longer Active Mitch Urbina DO Active COLCRYS 0.6 MG ORAL TABLET 1 tab qid prn gout C OLCHICINE 60870520141 No Longer Active Mitch Urbina DO Active KEFLEX 500 MG ORAL CAPSULE 1 po qid CEPHALEXI N 41383634865 No Longer Active Mitch Urbina DO Active LOSARTAN POTASSIUM 100 MG ORAL TABLET 1 pill by mouth daily, for blood pressure LOSARTAN POTASSIUM 83817056141 Active Ana Ocampo Active AMLODIPINE BESYLATE 5 MG ORAL TABLET 1 tablet by mouth daily 201 01/20/04 AMLODIPINE BESYLATE 02415532504 No Longer Active Joe fulton APRN Active MITIGARE 0.6 MG ORAL CAPSULE 2 capsules at onset of go ut pain, then take one capsule at 1 hour if symptoms persist. COLCHICINE 59 003540100 Active Mitch Urbina DO Active COUMADIN 1 MG ORAL TABLET 2 tabs orally daily with the 5mg tab to equal 7mg daily WARFARIN SODIUM 19511183301 Active Renee Oconnor LPN Active INVOKANA 100 MG ORAL TABLET 1 tablet orally daily CANAGLIFLOZIN 09633377625 Active Renee Quirogamonserrat BURNETTN Active MINOXIDIL 2.5 MG ORAL TABLET 1 tablet daily for high blood press ure MINOXIDIL 09161477818 Active Renee Oconnor VALUER Active MECLIZINE HCL 25 MG ORAL TABLET 1 po tid 3 days, then 1/2 ta b tid 3 days MECLIZINE HCL 30547534709 No Longer Active Corey SEGURA Active ALLOPURINOL 300 MG ORAL TABLET Take 1 tablet by mouth daily 2012 ALLOPURINOL 45226365312 No Longer Active Corey SEGURA Active CLONIDINE HCL 0.1 MG ORAL TABLET 1 po bid 7 days, then 1/2 t ab po bid 7 days CLONIDINE HCL 16222814327 No Longer Active Corey SEGURA Active COUMADIN 5 MG ORAL TABLET 1 tab PO daily WARFAR IN SODIUM 05917321006 Active Renee Elvin DE LA ROSA Active COUMADIN 4 MG ORAL TABLET 1 tablet daily WARFAR IN SODIUM 19069082700 No Longer Active Corey SEGURA Active POLYTRIM 54601-0.1 UNIT/ML-% OPHTHALMIC SOLUTION 1 rui p in affected eye every 3 hours while awake x 7 days POLYMYXIN B-TRIMETHOP RIM 65771629722 No Longer Active Corey SEGURA Active LOSARTAN POTASSIUM-HCTZ 100-12.5 MG ORAL TABLET 1 by m outh daily for high blood pressure LOSARTAN POTASSIUM-HCTZ 18786970464 No Longer A ctive Mitch Urbina DO Active LISINOPRIL-HYDROCHLOROTHIAZIDE 20-12.5 MG ORAL TABLET 1 tab by m outh daily LISINOPRIL-HYDROCHLOROTHIAZIDE 48642991381 No Longer Active Mitch Urbina DO Active LISINOPRIL 20 MG ORAL TABLET 1 tab po at HS LIS INOPRIL 74667021024 No Longer Active Mitch Urbina DO Active COUMADIN 5 MG ORAL TABLET 1 by mouth every other day 2 WARFARIN SODIUM 12688923200 No Longer Active Mitch Urbina DO Active COUMADIN 6 MG ORAL TABLET 1 by mouth every other day 2 WARFARIN SODIUM 03544323272 No Longer Active Mitch Urbina DO Active SIMVASTATIN 40 MG ORAL TABLET 1 tab daily at bedtime SIMVASTATIN 06851518250 Active Mitch Urbina DO Active SIMVASTATIN 20 MG ORAL TABLET 1 tab daily at bedtime 2 SIMVASTATIN 60628778825 No Longer Active Mitch Urbina DO Active LOVENOX 100 MG/ML SUBCUTANEOUS SOLUTION One injection twice a da y ENOXAPARIN SODIUM 36028332397 No Longer Active Carmine Yusuf MD Active JANUVIA 50 MG ORAL TABLET Take one by mouth daily SITAGLIPTIN PHOSPHATE 88561532543 Active Renee Oconnoreder DE LA ROSA Active JANUVIA 100 MG ORAL TABLET 1/2 by mouth every day 2011 SITAGLIPTIN PHOSPHATE 67938200919 No Longer Active Bijal Segal RN Acti ve METFORMIN HCL 500 MG ORAL TABLET 2 by mouth twice daily METFORMIN HCL 07035618045 No Longer Active Renee Oconnor LPN Active COLCRYS 0.6 MG ORAL TABLET 1 po q 6 hours prn gout pain COLCHICINE 64424486947 No Longer Active Camila Reese Active LISINOPRIL 5 MG ORAL TABLET 1 by mouth every day 11/17 LISINOPRIL 26158151159 No Longer Active Nguyenmolly Perez Active KLOR-CON 20 MEQ ORAL PACKET Take one by mouth daily 09/10/08 POTASSIUM CHLORIDE 27036821739 No Longer Active Nguyenmolly Perez Active FUROSEMIDE 40 MG ORAL TABLET 1 by mouth daily F UROSEMIDE 36925163776 No Longer Active Nguyen Ana Active PROVIGIL 100 MG ORAL TABLET Take one by mouth daily 08/20/04 MODAFINIL 10418556749 No Longer Active Mitch Urbina DO Active BACTRIM DS 800-160 MG ORAL TABLET 1 tab by mouth twice daily 201 10/19/09 TRIMETHOPRIM-SULFAMETHOXAZOLE 35066701124 No Longer Active Elian Hays MD Active ADULT ASPIRIN LOW STRENGTH 81 MG ORAL TABLET DISINTEGR ATING 1 by mouth every daily ASPIRIN 80099312112 Active Mitch Urbina DO Ac tive METOPROLOL TARTRATE 50 MG ORAL TABLET 1 by mouth twice daily METOPROLOL TARTRATE 15423254383 Active Ana Terrence Activ e BACTRIM DS 800-160 MG ORAL TABLET 1 tab by mouth twice daily 201 10/19/09 BACTRIM DS 800-160 MG ORAL TABLET 373611 TRIMETHOPRIM-SULFAMETHOXAZOLE Inactive PROVIGIL 100 MG ORAL TABLET Take one by mouth daily 08/20/04 PROVIGIL 100 MG ORAL TABLET 821903 MODAFINIL Inactive FUROSEMIDE 40 MG ORAL TABLET 1 by mouth daily FUROSEMIDE 40 MG ORAL TABLET 756461 FUROSEMIDE Inactive KLOR-CON 20 MEQ ORAL PACKET Take one by mouth daily 09/10/08 KLOR- CON 20 MEQ ORAL PACKET 9044472 POTASSIUM CHLORIDE Inactive LISINOPRIL 5 MG ORAL TABLET 1 by mouth every day 11/17 LISINOPRIL 5 MG ORAL TABLET 497818 LISINOPRIL Inactive COLCRYS 0.6 MG ORAL TABLET 1 po q 6 hours prn gout pain COLCRYS 0.6 MG ORAL TABLET 031993 COLCHICINE Inactive JANUVIA 100 MG ORAL TABLET 1/2 by mouth every day 2011 JANUVIA 100 MG ORAL TABLET SITAGLIPTIN PHOSPHATE Inactive SIMVASTATIN 20 MG ORAL TABLET 1 tab daily at bedtime 2 SIMVASTATIN 20 MG ORAL TABLET 069714 SIMVASTATIN Inactive COUMADIN 6 MG ORAL TABLET 1 by mouth every other day 2 COUMADIN 6 MG ORAL TABLET 959765 WARFARIN SODIUM Inactive COUMADIN 5 MG ORAL TABLET 1 by mouth every other day 2 COUMADIN 5 MG ORAL TABLET 643396 WARFARIN SODIUM Inactive LISINOPRIL 20 MG ORAL TABLET 1 tab po at HS LISINOPRIL 20 MG ORAL TABLET 371016 LISINOPRIL Inactive LISINOPRIL-HYDROCHLOROTHIAZIDE 20-12.5 MG ORAL TABLET 1 tab by m outh daily LISINOPRIL-HYDROCHLOROTHIAZIDE 20-12.5 MG ORAL TABLET 213887 LISINOPRIL-HYDROCHLOROTHIAZIDE Inactive POLYTRIM 96849-3.1 UNIT/ML-% OPHTHALMIC SOLUTION 1 rui p in affected eye every 3 hours while awake x 7 days POLYTRIM 1000 0-0.1 UNIT/ML-% OPHTHALMIC SOLUTION 120928 POLYMYXIN B-TRIMETHOPRIM Inactive COUMADIN 4 MG ORAL TABLET 1 tablet daily COUMADIN 4 MG ORAL TABLET 986767 WARFARIN SODIUM Inactive CLONIDINE HCL 0.1 MG ORAL TABLET 1 po bid 7 days, then 1/2 t ab po bid 7 days CLONIDINE HCL 0.1 MG ORAL TABLET 188803 CLONIDIN E HCL Inactive ALLOPURINOL 300 MG ORAL TABLET Take 1 tablet by mouth daily 2012 ALLOPURINOL 300 MG ORAL TABLET 150570 ALLOPURINOL I nactive MECLIZINE HCL 25 MG ORAL TABLET 1 po tid 3 days, then 1/2 ta b tid 3 days MECLIZINE HCL 25 MG ORAL TABLET 254466 MECLIZINE HCL Inactive AMLODIPINE BESYLATE 5 MG ORAL TABLET 1 tablet by mouth daily 201 01/20/04 AMLODIPINE BESYLATE 5 MG ORAL TABLET 443249 AMLODIPINE BESYLATE Inactive KEFLEX 500 MG ORAL CAPSULE 1 po qid K EFLEX 500 MG ORAL CAPSULE 720294 CEPHALEXIN Inactive COLCRYS 0.6 MG ORAL TABLET 1 tab qid prn gout COLCRYS 0.6 MG ORAL TABLET 816499 COLCHICINE Inactive FAMOTIDINE 20 MG ORAL TABLET by mouth twice a day 2017 FAMOTIDINE 20 MG ORAL TABLET 049808 FAMOTIDINE Inactive GLIMEPIRIDE 2 MG ORAL TABLET 1 po BID GLIMEPIRIDE 2 MG ORAL TABLET 972572 GLIMEPIRIDE Inactive LOVENOX 100 MG/ML SUBCUTANEOUS SOLUTION One injection twice a da y LOVENOX 100 MG/ML SUBCUTANEOUS SOLUTION 010476 ENOXAPAR IN SODIUM Inactive Vital Signs Date [...] 4.3-6.0 Encounters Code Encounter Date Provider Facility CPT-35008 [id number] Vst-Est Level IV 10:52:00 HADOOP ADMIN Stephy Urbina [facility] CPT-39057 Level 3 Est. Patient 18:25:53 CDT Mitch luis [facility] CPT-33762 Level 3 Est. Patient 19:43:34 CDT Mitch luis [facility] CPT-16715 Level 4 Est. Patient 09:30:18 CDT Mitch luis [facility] CPT-67705 Level 3 Est. Patient 15:10:14 CDT Joe kamara [facility] CPT-73727 Level 3 Est. Patient 15:03:46 CDT Joe kamara [facility] CPT-31343 Level 3 Est. Patient 14:21:06 CDT Mitch luis [facility] CPT-13988 Level 3 Est. Patient 14:52:06 CDT Joe kamara [facility] CPT-72598 Level 3 Est. Patient 09:34:30 HADOOP ADMIN Mitch luis [facility] CPT-38573 Level 3 Est. Patient 09:37:15 CDT Mitch luis [facility] CPT-55926 Level 3 Est. Patient 17:01:00 HADOOP ADMIN Mitch luis [facility] CPT-51118 Level 3 Est. Patient 13:53:19 HADOOP ADMIN Mitch luis [facility] CPT-11110 Level 3 Est. Patient 19:19:37 HADOOP ADMIN Mitch luis [facility] CPT-46638 Level 3 Est. Patient 13:25:53 HADOOP ADMIN Tavo toure MD [facility] CPT-31276 Level 3 Est. Patient 18:17:28 CDT Mitch Arnol luis [facility] CPT-99871 Level 3 Est. Patient 15:22:57 CDT Mitch Arnol luis [facility] CPT-30747 Level 3 Est. Patient 18:21:50 CDT Mitch luis [facility] CPT-88998 Level 3 Est. Patient 18:20:38 CDT Mitch Arnol luis [facility] CPT-63064 Level 3 Est. Patient 15:37:55 CDT Mitch luis [facility] CPT-54368 Level 2 Est. Patient 15:54:44 CDT Carmine benton MD [facility] CPT-02496 Level 3 Est. Patient 21:46:01 HADOOP ADMIN Mitch luis [facility] CPT-90124 Level 3 Est. Patient 22:15:50 CDT Mitch luis [facility] CPT-75463 Level 3 Est. Patient 10:48:15 CDT Mitch luis [facility] CPT-83766 Level 3 Est. Patient 23:20:57 CDT Tavo toure MD [facility] CPT-78128 Level 3 Est. Patient 16:26:13 CDT Mitch Castellano janelel [facility] Procedures Code Procedure Name Date Entry Date Standard Desc ription CPT-JTINJ Asp/Joint Injection 18:47:02 CDT CPT-86959 Venipuncture Draw Fee 09:26:17 CDT CPT-25375 PT/INR - LAB USE ONLY 13:32:49 HADOOP ADMIN CPT-84469 Venipuncture Draw Fee 13:32:49 HADOOP ADMIN CPT-36247 PT/INR - LAB USE ONLY 10:34:49 HADOOP ADMIN CPT-43505 Venipuncture Draw Fee 10:34:48 HADOOP ADMIN CPT-76143 PT/INR - LAB USE ONLY 09:22:03 HADOOP ADMIN CPT-30888 Venipuncture Draw Fee 09:22:02 HADOOP ADMIN CPT-47347 Hemoccult IFOBT - LAB USE ONLY 10:27:22 CDT CPT-28700 Venipuncture Draw Fee 08:27:08 CDT CPT-61933 Liver Profile - LAB USE ONLY 08:27:07 CDT 2 CPT-40058 Microalbumin - LAB USE ONLY 08:27:07 CDT 20 25/05/09 CPT-58809 PT/INR - LAB USE ONLY 08:27:07 CDT CPT-30890 HGBA1C - LAB USE ONLY 08:27:07 CDT CPT-33424 CBC - LAB USE ONLY 08:27:07 CDT CPT-00117 Venipuncture Draw Fee 11:09:14 CDT CPT-52018 Venipuncture Draw Fee 08:32:21 HADOOP ADMIN CPT-78680 Venipuncture Draw Fee 09:38:56 HADOOP ADMIN CPT-75699 No Charge Offi Visit 21:36:07 CDT 1 CPT-09476 Venipuncture Draw Fee 10:13:28 HADOOP ADMIN CPT-66813 Venipuncture Draw Fee 08:31:11 CDT CPT-08290 Aspir/Inject Med Joint 18:17:28 CDT CPT-00505 Venipuncture Draw Fee 10:13:30 CDT CPT-93302 Venipuncture Draw Fee 08:31:43 HADOOP ADMIN CPT-JTINJ Joint Injection 18:34:50 CDT CPT-55570 Knee 3V 12:25:09 CDT CPT-29372 Venipuncture Draw Fee 12:15:57 CDT CPT-060 Medical Surveillance Exam 21:31:43 CDT 2011 CPT-90567 Venipuncture Draw Fee 08:32:05 HADOOP ADMIN CPT-OV Office Visit 18:19:06 CDT
--- OUTSIDE RECORDS SUMMARY | 2020-01-18 11:42 | XMS REPORT | Clinical Summary ---
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 3 Active Mitch Arnol Carlitos DO Osteoarthrosis, unsp ecified whether generalized or localized, involving lower leg DIZZINESS 780.4 Resolved Mitch Arnol Carlitos DO Dizziness and giddiness CAROTID BRUIT, LEFT 785.9 Active Mitch Arnol Carlitos DO Other symptoms involving cardiovascular system GOUT, RIGHT WRIST 274.9 Resolved Mitch Arnol Carlitos DO Gout, unspecified BRUISE 924.9 Resolved Mitch Arnol Carlitos DO Co ntusion of unspecified site [...] 782.3 Active Mitch W Carlitos DO Edema CELLULITIS, GROIN, LEFT ICD-682.2 Inactive Zoya Urbina DO SEROMA ICD-998.13 Inactive Mitch Urbina DO REACTIVE HYPOGLYCEMIA ICD-251.2 Inactive Mitch Urbina DO LONG-TERM (CURRENT) USE OF ANTICOAGULANTS ICD-V58.61 Inactive Mitch Urbina DO EDEMA ICD-782.3 Inactive Mitch Urbina DO DIZZINESS ICD-780.4 Inactive Mitch Urbina DO 10/23 GOUT, RIGHT WRIST ICD-274.9 Inactive Mitch Meraz DO BRUISE ICD-924.9 Inactive Mitch Urbina DO OLECRANON BURSITIS, RIGHT ICD-726.33 Inactive Mitch Urbina DO UNSPECIFIED ANEMIA ICD-285.9 Inactive Mitch luis DO Malaise and fatigue ICD-780.79 Inactive Mitch Urbina DO Cough, chronic ICD-786.2 Inactive Mitch Urbina D O Sebaceous cyst, infected ICD-706.2 Inactive Mitch Urbina DO Cellulitis ICD-682.9 Inactive Mithc Urbina DO 10/23 Medication List Medication Instructions Start Date Stop Date Generic Name NDC Status Provider Patient Instruction GLIMEPIRIDE 2 MG ORAL TABS 1 po BID GLIMEPIRIDE 45224 783205 Active Ana Wallace Active KEFLEX 500 MG CAP 1 po qid CEPHALEXIN 384099998 20 No Longer Active Mitch Urbina DO Active LOSARTAN POTASSIUM 100 MG TABS 1 pill by mouth daily, for bl ood pressure LOSARTAN POTASSIUM 24677869397 Active Ana Wallace Active AMLODIPINE BESYLATE 5 MG TABS 1 tablet by mouth daily AMLODIPINE BESYLATE 80640974547 No Longer Active Joe Williamson APRN Active MITIGARE 0.6 MG ORAL CAPS 2 capsules at onset of gout pain, then take one capsule at 1 hour if symptoms persist. COLCHICINE 59 798241213 Active Mitch Urbina DO Active COUMADIN 1 MG TAB 2 tabs orally daily with the 5mg tab to equal 7mg daily WARFARIN SODIUM 08494087812 Active Ana Wallace Active COLCRYS 0.6 MG TABS 1 tab qid prn gout COLCHICINE 43567996167 Active Norma Cazares Active INVOKANA 100 MG ORAL TABS 1 tablet orally daily CANAGLIFLOZIN 57576022964 Active Mitch Urbina DO Active MINOXIDIL 2.5 MG TABS 1 tablet daily for high blood pressure 10/23 MINOXIDIL 77579859210 Active Mitch Urbina DO Active MECLIZINE HCL 25 MG TAB 1 po tid 3 days, then 1/2 tab tid 3 days MECLIZINE HCL 65099995139 No Longer Active Corey SEGURA Active ALLOPURINOL 300 MG TABS Take 1 tablet by mouth daily 2 ALLOPURINOL 28562512093 No Longer Active Corey SEGURA Activ e CLONIDINE HCL 0.1 MG TABS 1 po bid 7 days, then 1/2 tab po b id 7 days CLONIDINE HCL 88733911578 No Longer Active Corey SEGURA Active COUMADIN 5 MG TABS 1 tab PO daily WARFARIN SODIUM 25240560034 Active Mitch Urbina DO Active COUMADIN 4 MG TABS 1 tablet daily WARFARIN SODI UM 48106089227 No Longer Active Corey SEGURA Active POLYTRIM 26027-2.1 UNIT/ML-% SOLN 1 drop in affected e ye every 3 hours while awake x 7 days POLYMYXIN B-TRIMETHOPRIM 20423141867 N o Longer Active Corey SEGURA Active LOSARTAN POTASSIUM-HCTZ 100-12.5 MG TABS 1 by mouth [place] for high blood pressure LOSARTAN POTASSIUM-HCTZ 80670319164 No Longer A ctive Mitch Urbina DO Active LISINOPRIL-HYDROCHLOROTHIAZIDE 20-12.5 MG TABS 1 tab by mouth da rocky LISINOPRIL-HYDROCHLOROTHIAZIDE 21640688267 No Longer Active Mitch luis DO Active LISINOPRIL 20 MG TABS 1 tab po at HS LISINOPRIL 96437754619 No Longer Active Mitch Urbina DO Active COUMADIN 5 MG TABS 1 by mouth every other day WARFARIN SODIUM 29255993425 No Longer Active Mitch Urbina DO Active COUMADIN 6 MG TABS 1 by mouth every other day WARFARIN SODIUM 89395844558 No Longer Active Mitch Urbina DO Active SIMVASTATIN 40 MG TABS 1 tab daily at bedtime S IMVASTATIN 73939229023 Active Mitch Urbina DO Active SIMVASTATIN 20 MG TABS 1 tab daily at bedtime S IMVASTATIN 45486665044 No Longer Active Mitch Urbina DO Active LOVENOX 100 MG/ML SC SOLN One injection twice a day 09/15/15 ENOXAPARIN SODIUM 41615520307 No Longer Active Carmine Yusuf MD A ctive JANUVIA 50 MG TABS Take one by mouth daily DIEGO GLIPTIN PHOSPHATE 07612945385 Active Mitch Urbina DO Active JANUVIA 100 MG TABS 1/2 by mouth every day DIEGO GLIPTIN PHOSPHATE 62675483851 No Longer Active Bijal Segal RN Active METFORMIN HCL 500 MG TABS 2 by mouth twice daily METFORMIN HCL 56259076414 Active Mitch Urbina DO Active COLCRYS 0.6 MG TABS 1 po q 6 hours prn gout pain 03/02 COLCHICINE 93700002614 No Longer Active Camila Reese Active LISINOPRIL 5 MG TABS 1 by mouth every day LISIN OPRIL 47785267087 No Longer Active Nguyen Perez Active KLOR-CON 20 MEQ PACK Take one by mouth daily 8 POTASSIUM CHLORIDE 38869139101 No Longer Active Nguyen Perez Active FUROSEMIDE 40 MG TABS 1 by mouth daily FUROSEMI DE 05483275097 No Longer Active Nguyen Perez Active PROVIGIL 200 MG TABS 1/2 tab po q day MODAFINIL 23938 246742 Active Mitch Urbina DO Active PROVIGIL 100 MG TABS Take one by mouth daily MO DAFINIL 48080419737 No Longer Active Mitch Urbina DO Active BACTRIM DS 800-160 MG TAB 1 tab by mouth twice daily 2 TRIMETHOPRIM-SULFAMETHOXAZOLE 27844422049 No Longer Active Renan Hays MD Active FAMOTIDINE 20 MG TABS by mouth twice a day FAMOTI DINE 81374173423 Active Mitch Urbina DO Active ADULT ASPIRIN LOW STRENGTH 81 MG TBDP 1 by mouth every daily ASPIRIN 05525669660 Active Mitch Urbina DO Active METOPROLOL TARTRATE 50 MG TABS 1 by mouth twice daily METOPROLOL TARTRATE 86130165881 Active Mitch Urbina DO Active BACTRIM DS 800-160 MG TAB 1 tab by mouth twice daily 2 BACTRIM DS 800-160 MG TAB 459304 TRIMETHOPRIM-SULFAMETHOXAZOLE Inac tive PROVIGIL 100 MG TABS Take one by mouth daily 4 PROVIGIL 100 MG TABS 341419 MODAFINIL Inactive FUROSEMIDE 40 MG TABS 1 by mouth daily FU ROSEMIDE 40 MG TABS 776507 FUROSEMIDE Inactive KLOR-CON 20 MEQ PACK Take one by mouth daily 8 KLOR-CON 20 MEQ PACK 7325313 POTASSIUM CHLORIDE Inactive LISINOPRIL 5 MG TABS 1 by mouth every day LISINOPRIL 5 MG TABS 419077 LISINOPRIL Inactive COLCRYS 0.6 MG TABS 1 po q 6 hours prn gout pain 03/02 COLCRYS 0.6 MG TABS 085341 COLCHICINE Inactive JANUVIA 100 MG TABS 1/2 by mouth every day JANUVI A 100 MG TABS SITAGLIPTIN PHOSPHATE Inactive SIMVASTATIN 20 MG TABS 1 tab daily at bedtime SIMVASTATIN 20 MG TABS 371337 SIMVASTATIN Inactive COUMADIN 6 MG TABS 1 by mouth every other day COUMADIN 6 MG TABS 904998 WARFARIN SODIUM Inactive COUMADIN 5 MG TABS 1 by mouth every other day COUMADIN 5 MG TABS 443441 WARFARIN SODIUM Inactive LISINOPRIL 20 MG TABS 1 tab po at HS KOKI NOPRIL 20 MG TABS 640325 LISINOPRIL Inactive LISINOPRIL-HYDROCHLOROTHIAZIDE 20-12.5 MG TABS 1 tab by mouth da rocky LISINOPRIL-HYDROCHLOROTHIAZIDE 20-12.5 MG TABS 086519 LISINOPRIL-HYDROCHLOROTHIAZIDE Inactive POLYTRIM 95852-6.1 UNIT/ML-% SOLN 1 drop in affected e ye every 3 hours while awake x 7 days POLYTRIM 10120-8.1 UNIT/ML-% SOLN 39179 7 POLYMYXIN B-TRIMETHOPRIM Inactive COUMADIN 4 MG TABS 1 tablet daily COUMADIN 4 MG TABS 812368 WARFARIN SODIUM Inactive CLONIDINE HCL 0.1 MG TABS 1 po bid 7 days, then 1/2 tab po b id 7 days CLONIDINE HCL 0.1 MG TABS 591585 CLONIDINE HCL I nactive ALLOPURINOL 300 MG TABS Take 1 tablet by mouth daily 2 ALLOPURINOL 300 MG TABS 349966 ALLOPURINOL Inactive MECLIZINE HCL 25 MG TAB 1 po tid 3 days, then 1/2 tab tid 3 days MECLIZINE HCL 25 MG TAB 896637 MECLIZINE HCL Inactive AMLODIPINE BESYLATE 5 MG TABS 1 tablet by mouth daily AMLODIPINE BESYLATE 5 MG TABS 522455 AMLODIPINE BESYLATE Inactive KEFLEX 500 MG CAP 1 po qid KEFLEX 500 MG CAP 30 9114 CEPHALEXIN Inactive LOVENOX 100 MG/ML SC SOLN One injection twice a day 09/15/15 LOVENOX 100 MG/ML SC SOLN 965904 ENOXAPARIN SODIUM Inactive Vital Signs Date Name Value Unit Range Description blood pressure, diastolic 82 mm[Hg] BP mane blood pressure, systolic 164 mm[Hg] BP sys height E&M 70 [in_us] Bdy height pulse rate E&M 71 /min Heart rate temperature E&M 98.4 [degF] Body temp erature weight E&M 227 [lb_av] Weight Measure d blood pressure, diastolic 70 mm[Hg] BP mane blood pressure, systolic 142 mm[Hg] BP sys height E&M 70 [in_us] Bdy height pulse rate E&M 75 /min Heart rate temperature E&M 98.7 [degF] Body temp erature weight E&M 225.31 [lb_av] Weight Measure d blood pressure, diastolic 63 mm[Hg] BP mane blood pressure, systolic 136 mm[Hg] BP sys pulse rate E&M 75 /min Heart rate temperature E&M 98.9 [degF] Body temp erature weight E&M 226.5 [lb_av] Weight Measure d blood pressure, diastolic 71 mm[Hg] BP mane blood pressure, systolic 155 mm[Hg] BP sys height E&M 70 [in_us] Bdy height pulse rate E&M 70 /min Heart rate temperature E&M 98.5 [degF] Body temp erature weight E&M 228 [lb_av] Weight Measure d Diagnostic Results Date Name Value Unit Range Description Lab Report: Basic Metabolic Panel - Chem istry sodium, serum 139 mmol/L 485-767 7449/07/17 potassium, serum 4.2 mmol/L 3.5-5.2 chloride, serum 102 mmol/L 98-107 carbon dioxide, venous blood 28.9 mmol/L 21.0-32 .0 blood glucose 211 mg/dL 65-110 calcium, serum 10.6 mg/dL 8.5-10.1 urea nitrogen, blood 29 mg/dL 7-18 creatinine, serum 1.24 mg/dL 0.60-1.30 sodium, serum 141 mmol/L 861-120 3398/08/07 potassium, serum 4.5 mmol/L 3.5-5.2 chloride, serum 102 mmol/L 98-107 carbon dioxide, venous blood 31.7 mmol/L 21.0-32 .0 blood glucose 117 mg/dL 65-110 calcium, serum 10.5 mg/dL 8.5-10.1 urea nitrogen, blood 26 mg/dL 7-18 creatinine, serum 1.15 mg/dL 0.60-1.30 Lab Report: CBC, MICROALB/CREAT W/RATIO - Chemistry albumin/creatinine ratio, urine <30 mg/g Normal mg/g m g/g{creat} 0-29 Lab Report: CBC, MICROALB/CREAT W/RATIO - Hematology leukocyte count, blood 8.7 10^3/MM^3 10*3/mm3 4.6-10.2 erythrocyte (RBC) count 5.10 10^6/MM^3 10*6/mm3 4.50-6.5 0 hemoglobin, blood 14.6 g/dL 14.0-18.0 hematocrit, blood 43.9 % 40.0-54.0 mean corpuscular volume, RBC 86 fL 80-97 mean corpuscular hemoglobin, RBC 28.6 pg 27. 0-31.2 mean corpuscular hemoglobin concentration, RBC 33.2 G/DL % 31.8-35.4 red blood cell distribution width 14.9 % 11 .6-14.8 platelet count 216 10^3/MM^3 10*3/mm3 142-424 Lab Report: CBC, MICROALB/CREAT W/RATIO - Lab microalbumin, urine 10 mg/L 0-19 Lab Report: Comp. Metabolic Panel, Thyro id Stimulating Hormone (L), Pros ... - Chemistry sodium, serum 144 mmol/L 332-420 3414/06/12 carbon dioxide, venous blood 26.6 mmol/L 21.0-32 .0 potassium, serum 4.2 mmol/L 3.5-5.2 chloride, serum 105 mmol/L 98-107 blood glucose 192 mg/dL 65-110 urea nitrogen, blood 27 mg/dL 7-18 creatinine, serum 1.32 mg/dL 0.55-1.30 alanine aminotransferase (SGPT), serum 32 U/L 12-78 aspartate aminotransferase (SGOT), serum 27 U/L 15-37 calcium, serum 10.5 mg/dL 8.5-10.1 bilirubin, serum, total 0.70 mg/dL 0.00-1.00 TSH 2.49 m[iU]/mL 0.36-3.74 prostate specific antigen 3.14 ng/mL 0.00-4.00 Lab Report: Prothrombin Time - Coagulati on prothrombin time (patient) 17.8 SECS s 11.1-13.4 international normalized ratio (INR) 2.0 1.0-3.5 prothrombin time (patient) 19.9 SECS s 11.1-13.4 international normalized ratio (INR) 2.4 1.0-3.5 prothrombin time (patient) 21.3 SECS s 11.1-13.4 international normalized ratio (INR) 2.7 1.0-3.5 Encounters Code Encounter Date Provider Facility CPT-83643 Level 3 Est. Patient 18:25:53 CDT Mitch luis [facility] CPT-78138 Level 3 Est. Patient 19:43:34 CDT Mitch luis [facility] CPT-85133 Level 4 Est. Patient 09:30:18 CDT Mitch luis [facility] CPT-17535 Level 3 Est. Patient 15:10:14 CDT Joe Jason courtangela [facility] CPT-91882 Level 3 Est. Patient 15:03:46 CDT Joe Jason anh [facility] CPT-76086 Level 3 Est. Patient 14:21:06 CDT Mitch luis [facility] CPT-68413 Level 3 Est. Patient 14:52:06 CDT Joe Jason kamara [facility] CPT-03673 Level 3 Est. Patient 09:34:30 CUT OFF SAW OPERATOR METAL Mitch luis [facility] CPT-79376 Level 3 Est. Patient 09:37:15 CDT Mitch luis [facility] CPT-12762 Level 3 Est. Patient 17:01:00 CUT OFF SAW OPERATOR METAL Mitch luis [facility] CPT-69665 Level 3 Est. Patient 13:53:19 CUT OFF SAW OPERATOR METAL Mitch luis [facility] CPT-58249 Level 3 Est. Patient 19:19:37 CUT OFF SAW OPERATOR METAL Mitch luis [facility] CPT-29759 Level 3 Est. Patient 13:25:53 CUT OFF SAW OPERATOR METAL Tavo toure MD [facility] CPT-43078 Level 3 Est. Patient 18:17:28 CDT Mitch luis [facility] CPT-00566 Level 3 Est. Patient 15:22:57 CDT Mitch luis [facility] CPT-22586 Level 3 Est. Patient 18:21:50 CDT Mitch W L janelle [facility] CPT-17400 Level 3 Est. Patient 18:20:38 CDT Mitch W L janelle [facility] CPT-96710 Level 3 Est. Patient 15:37:55 CDT Mitch W L janelle [facility] CPT-55334 Level 2 Est. Patient 15:54:44 CDT Carmine benton [facility] CPT-63543 Level 3 Est. Patient 21:46:01 CUT OFF SAW OPERATOR METAL Mitch luis [facility] CPT-17939 Level 3 Est. Patient 22:15:50 CDT Mitch luis [facility] CPT-12787 Level 3 Est. Patient 10:48:15 CDT Mitch luis [facility] CPT-46907 Level 3 Est. Patient 23:20:57 CDT Tavo toure MD [facility] CPT-54651 Level 3 Est. Patient 16:26:13 CDT Mitch Ambrose Nona luis [facility] Procedures Code Procedure Name Date Entry Date Standard Desc ription CPT-87115 Venipuncture Draw Fee 09:26:17 CDT CPT-35711 PT/INR - LAB USE ONLY 13:32:49 CUT OFF SAW OPERATOR METAL CPT-89136 Venipuncture Draw Fee 13:32:49 CUT OFF SAW OPERATOR METAL CPT-15333 PT/INR - LAB USE ONLY 10:34:49 CUT OFF SAW OPERATOR METAL CPT-38141 Venipuncture Draw Fee 10:34:48 CUT OFF SAW OPERATOR METAL CPT-54356 PT/INR - LAB USE ONLY 09:22:03 CUT OFF SAW OPERATOR METAL CPT-99202 Venipuncture Draw Fee 09:22:02 CUT OFF SAW OPERATOR METAL CPT-28337 Hemoccult IFOBT - LAB USE ONLY 10:27:22 CDT CPT-49357 Venipuncture Draw Fee 08:27:08 CDT CPT-46577 Liver Profile - LAB USE ONLY 08:27:07 CDT 2 CPT-74591 Microalbumin - LAB USE ONLY 08:27:07 CDT 20 25/05/09 CPT-15362 PT/INR - LAB USE ONLY 08:27:07 CDT CPT-87867 HGBA1C - LAB USE ONLY 08:27:07 CDT CPT-80931 CBC - LAB USE ONLY 08:27:07 CDT CPT-37609 Venipuncture Draw Fee 11:09:14 CDT CPT-54711 Venipuncture Draw Fee 08:32:21 CUT OFF SAW OPERATOR METAL CPT-48923 Venipuncture Draw Fee 09:38:56 CUT OFF SAW OPERATOR METAL CPT-83942 No Charge Offi Visit 21:36:07 CDT 1 CPT-40932 Venipuncture Draw Fee 10:13:28 CUT OFF SAW OPERATOR METAL CPT-37651 Venipuncture Draw Fee 08:31:11 CDT CPT-44829 Aspir/Inject Med Joint 18:17:28 CDT CPT-08667 Venipuncture Draw Fee 10:13:30 CDT CPT-22052 Venipuncture Draw Fee 08:31:43 CUT OFF SAW OPERATOR METAL CPT-JTINJ Joint Injection 18:34:50 CDT CPT-80811 Knee 3V 12:25:09 CDT CPT-01547 Venipuncture Draw Fee 12:15:57 CDT CPT-060 Medical Surveillance Exam 21:31:43 CDT 2011 CPT-77849 Venipuncture Draw Fee 08:32:05 CUT OFF SAW OPERATOR METAL CPT-OV Office Visit 18:19:06 CDT
--- OUTSIDE RECORDS SUMMARY | 2020-01-18 11:42 | XMS REPORT | Clinical Summary ---
Author Author Admin, Mitch Leon Organization 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 3 Active Mitch Arnol Urbina DO Osteoarthrosis, unsp ecified whether generalized or localized, involving lower leg DIZZINESS 780.4 Resolved Mitch Arnol Urbina DO Dizziness and giddiness CAROTID BRUIT, LEFT 785.9 Active Mitch Arnol Urbina DO Other symptoms involving cardiovascular system GOUT, RIGHT WRIST 274.9 Resolved Mitch Arnol Urbina DO Gout, unspecified BRUISE 924.9 Resolved Mitch Arnol Urbina DO Co ntusion of unspecified site OLECRANON BURSITIS, RIGHT 726.33 Resolved Br kevin Arnol Urbina DO Olecranon bursitis UNSPECIFIED ANEMIA 285.9 Resolved Mitch Arnol Urbina DO Anemia, unspecified Malaise and fatigue 780.79 Resolved Mitch Arnol Carlitos Tejeda O Other malaise and fatigue Cough, chronic 786.2 Resolved Mitch Arnol Urbina DO Cough Sebaceous cyst, infected 706.2 Resolved Mitch Arnol Carlitos DO Sebaceous cyst Cellulitis 682.9 Resolved Mitch Arnol Urbina DO Cellulitis and abscess of unspecified sites 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 Carmine benton MD Benign neoplasm of colon Coumadin therapy V58.61 Active Domi Rivera MA Long-term (current) use of anticoagulants Valve replacement V43.3 Active Mitch Arnol Carlitos Heart valve replaced by other means Narcolepsy 347.00 Active Mitch Urbina DO 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 of colon 211.3 Active Joe Williamson APRN Benign neoplasm of colon Diabetic foot ulcer, great toe, left 707.15 Active Mitch Urbina DO Ulcer of other part of foot CELLULITIS, GROIN, LEFT ICD-682.2 Inactive Zoya Urbina [...] Generic Name NDC Status Provider Patient Instruction KEFLEX 500 MG CAP 1 po qid CEPHALEXIN 52862893986 Act juan Mitch Arnol Urbina DO Active LOSARTAN POTASSIUM 100 MG TABS 1 pill by mouth daily, for bl ood pressure LOSARTAN POTASSIUM 26423322545 Active Ana Wallace Active AMLODIPINE BESYLATE 5 MG TABS 1 tablet by mouth daily AMLODIPINE BESYLATE 73942453453 No Longer Active Catherinecarlitos Ryandonaldo VALENCIA Active MITIGARE 0.6 MG ORAL CAPS 2 capsules at onset of gout pain, then take one capsule at 1 hour if symptoms persist. COLCHICINE 59 001725893 Active Mitch Urbina DO Active COUMADIN 1 MG TAB 2 tabs orally daily with the 5mg tab to equal 7mg daily WARFARIN SODIUM 87453109808 Active Mitch Urbina DO Active COLCRYS 0.6 MG TABS 1 tab qid prn gout COLCHICINE 81528929359 Active Norma Cazares Active INVOKANA 100 MG ORAL TABS 1 tablet orally daily CANAGLIFLOZIN 07894914864 Active Mitch Urbina DO Active MINOXIDIL 2.5 MG TABS 1 tablet daily for high blood pressure 10/23 MINOXIDIL 08305870813 Active Mitch Urbina DO Active MECLIZINE HCL 25 MG TAB 1 po tid 3 days, then 1/2 tab tid 3 days MECLIZINE HCL 47264796301 No Longer Active Corey SEGURA Active ALLOPURINOL 300 MG TABS Take 1 tablet by mouth daily 2 ALLOPURINOL 89565239701 No Longer Active Corey SEGURA Activ e CLONIDINE HCL 0.1 MG TABS 1 po bid 7 days, then 1/2 tab po b id 7 days CLONIDINE HCL 03549506942 No Longer Active Corey SEGURA Active COUMADIN 5 MG TABS 1 tab PO daily WARFARIN SODIUM 95637607871 Active Mitch Urbina DO Active COUMADIN 4 MG TABS 1 tablet daily WARFARIN SODI UM 23087673943 No Longer Active Corey SEGURA Active POLYTRIM 53808-5.1 UNIT/ML-% SOLN 1 drop in affected e ye every 3 hours while awake x 7 days POLYMYXIN B-TRIMETHOPRIM 70292625126 N o Longer Active Corey SEGURA Active LOSARTAN POTASSIUM-HCTZ 100-12.5 MG TABS 1 by mouth nahun hidalgo for high blood pressure LOSARTAN POTASSIUM-HCTZ 07672847615 No Longer A ctive Mitch Urbina DO Active LISINOPRIL-HYDROCHLOROTHIAZIDE 20-12.5 MG TABS 1 tab by mouth da rocky LISINOPRIL-HYDROCHLOROTHIAZIDE 56458528730 No Longer Active Mitch Castellano janelle DO Active LISINOPRIL 20 MG TABS 1 tab po at HS LISINOPRIL 26989239478 No Longer Active Mitch Urbina DO Active COUMADIN 5 MG TABS 1 by mouth every other day WARFARIN SODIUM 82864548246 No Longer Active Mitch Urbina DO Active COUMADIN 6 MG TABS 1 by mouth every other day WARFARIN SODIUM 80244500097 No Longer Active Mitch Urbina DO Active SIMVASTATIN 40 MG TABS 1 tab daily at bedtime S IMVASTATIN 28021679723 Active Mitch Urbina DO Active SIMVASTATIN 20 MG TABS 1 tab daily at bedtime S IMVASTATIN 13099348898 No Longer Active Mitch Urbina DO Active LOVENOX 100 MG/ML SC SOLN One injection twice a day 09/15/15 ENOXAPARIN SODIUM 49320068026 No Longer Active Carmine Navarrete ctive JANUVIA 50 MG TABS Take one by mouth daily DEIGO GLIPTIN PHOSPHATE 25991830806 Active Mitch Urbina DO Active JANUVIA 100 MG TABS 1/2 by mouth every day DIEGO GLIPTIN PHOSPHATE 05389222402 No Longer Active Bijal Segal RN Active METFORMIN HCL 500 MG TABS 2 by mouth twice daily METFORMIN HCL 91019128073 Active Mitch Urbina DO Active GLIMEPIRIDE 4 MG TABS 1 tab po bid GLIMEPIRIDE 523284 32596 Active Mitch Urbina DO Active COLCRYS 0.6 MG TABS 1 po q 6 hours prn gout pain 03/02 COLCHICINE 68338408342 No Longer Active Camila Reese Active LISINOPRIL 5 MG TABS 1 by mouth every day LISIN OPRIL 74455244202 No Longer Active Nguyen Perez Active KLOR-CON 20 MEQ PACK Take one by mouth daily 8 POTASSIUM CHLORIDE 05147947984 No Longer Active Nguyen Perez Active FUROSEMIDE 40 MG TABS 1 by mouth daily FUROSEMI DE 86034514513 No Longer Active Nguyen Perez Active PROVIGIL 200 MG TABS 1/2 tab po q day MODAFINIL 69105 499458 Active Mitch Urbina DO Active PROVIGIL 100 MG TABS Take one by mouth daily MO DAFINIL 18241164433 No Longer Active Mitch Urbina DO Active BACTRIM DS 800-160 MG TAB 1 tab by mouth twice daily 2 TRIMETHOPRIM-SULFAMETHOXAZOLE 55045023016 No Longer Active Renan Hays MD Active FAMOTIDINE 20 MG TABS by mouth twice a day FAMOTI DINE 43277819375 Active Mitch Urbina DO Active ADULT ASPIRIN LOW STRENGTH 81 MG TBDP 1 by mouth every daily ASPIRIN 46678007864 Active Mitch Urbina DO Active METOPROLOL TARTRATE 50 MG TABS 1 by mouth twice daily METOPROLOL TARTRATE 26555699618 Active Mitch Urbina DO Active BACTRIM DS 800-160 MG TAB 1 tab by mouth twice daily 2 BACTRIM DS 800-160 MG TAB 141093 TRIMETHOPRIM-SULFAMETHOXAZOLE Inac tive PROVIGIL 100 MG TABS Take one by mouth daily 4 PROVIGIL 100 MG TABS 052489 MODAFINIL Inactive FUROSEMIDE 40 MG TABS 1 by mouth daily FU ROSEMIDE 40 MG TABS 543888 FUROSEMIDE Inactive KLOR-CON 20 MEQ PACK Take one by mouth daily 8 KLOR-CON 20 MEQ PACK POTASSIUM CHLORIDE Inactive LISINOPRIL 5 MG TABS 1 by mouth every day LISINOPRIL 5 MG TABS 952337 LISINOPRIL Inactive COLCRYS 0.6 MG TABS 1 po q 6 hours prn gout pain 03/02 COLCRYS 0.6 MG TABS 044898 COLCHICINE Inactive JANUVIA 100 MG TABS 1/2 by mouth every day JANUVI A 100 MG TABS SITAGLIPTIN PHOSPHATE Inactive SIMVASTATIN 20 MG TABS 1 tab daily at bedtime SIMVASTATIN 20 MG TABS 133556 SIMVASTATIN Inactive COUMADIN 6 MG TABS 1 by mouth every other day COUMADIN 6 MG TABS 906819 WARFARIN SODIUM Inactive COUMADIN 5 MG TABS 1 by mouth every other day COUMADIN 5 MG TABS 181382 WARFARIN SODIUM Inactive LISINOPRIL 20 MG TABS 1 tab po at HS KOKI NOPRIL 20 MG TABS 317514 LISINOPRIL Inactive LISINOPRIL-HYDROCHLOROTHIAZIDE 20-12.5 MG TABS 1 tab by mouth da rocky LISINOPRIL-HYDROCHLOROTHIAZIDE 20-12.5 MG TABS 551610 LISINOPRIL-HYDROCHLOROTHIAZIDE Inactive POLYTRIM 04309-9.1 UNIT/ML-% SOLN 1 drop in affected e ye every 3 hours while awake x 7 days POLYTRIM 76965-9.1 UNIT/ML-% SOLN 63239 7 POLYMYXIN B-TRIMETHOPRIM Inactive COUMADIN 4 MG TABS 1 tablet daily COUMADIN 4 MG TABS 793709 WARFARIN SODIUM Inactive CLONIDINE HCL 0.1 MG TABS 1 po bid 7 days, then 1/2 tab po b id 7 days CLONIDINE HCL 0.1 MG TABS 297063 CLONIDINE HCL I nactive ALLOPURINOL 300 MG TABS Take 1 tablet by mouth daily 2 ALLOPURINOL 300 MG TABS 485147 ALLOPURINOL Inactive MECLIZINE HCL 25 MG TAB 1 po tid 3 days, then 1/2 tab tid 3 days MECLIZINE HCL 25 MG TAB 164675 MECLIZINE HCL Inactive AMLODIPINE BESYLATE 5 MG TABS 1 tablet by mouth daily AMLODIPINE BESYLATE 5 MG TABS 425152 AMLODIPINE BESYLATE Inactive LOVENOX 100 MG/ML SC SOLN One injection twice a day 09/15/15 LOVENOX 100 MG/ML SC SOLN 913388 ENOXAPARIN SODIUM Inactive Vital Signs Date Name Value Unit Range Description blood pressure, diastolic 70 mm[Hg] BP mane [...] weight E&M 228 [lb_av] Weight Measure d blood pressure, diastolic 62 mm[Hg] BP mane blood pressure, systolic 145 mm[Hg] BP sys pulse rate E&M 74 /min Heart rate temperature E&M 98.1 [degF] Body temp erature weight E&M 226.0 [lb_av] Weight Measure d blood pressure, diastolic 70 mm[Hg] BP mane blood pressure, systolic 149 mm[Hg] BP sys pulse rate E&M 72 /min Heart rate temperature E&M 98.4 [degF] Body temp erature weight E&M 227.5 [lb_av] Weight Measure d Diagnostic Results Date Name Value Unit Range Description Chart Maintenance: hemoccult added to fl owkeitheet - Chemistry occult blood, stool (E&M) Positive Lab Report: Basic Metabolic Panel - Chem istry sodium, serum 139 mmol/L 827-350 1643/07/17 potassium, serum 4.2 mmol/L 3.5-5.2 chloride, serum 102 mmol/L 98-107 carbon dioxide, venous blood 28.9 mmol/L 21.0-32 .0 blood glucose 211 mg/dL 65-110 calcium, serum 10.6 mg/dL 8.5-10.1 urea nitrogen, blood 29 mg/dL 7-18 creatinine, serum 1.24 mg/dL 0.60-1.30 Lab Report: CBC, MICROALB/CREAT W/RATIO [...] ... - Chemistry sodium, serum 144 mmol/L 905-299 7420/06/12 carbon dioxide, venous blood 26.6 mmol/L 21.0-32 [...] specific antigen 3.14 ng/mL 0.00-4.00 Lab Report: Lipid Panel, HEPATIC PANEL, MICROALB/CREAT W/RATIO, HGBA1C, CBC - Chemistry aspartate aminotransferase (SGOT), serum 24 U/L 15-37 LDL cholesterol, serum 60 mg/dL 0-130 HDL cholesterol, serum 39 mg/dL 32-96 triglyceride, serum, fasting 187 mg/dL 30-200 cholesterol, serum 136 mg/dL 456-542 4694/08/09 albumin/creatinine ratio, urine < 30 mg/g mg/g{creat} 0-2 9 hemoglobin A1C, blood, as % of total hemoglobin 6.3 % 4.3-6.0 alanine aminotransferase (SGPT), serum 29 U/L 12-78 bilirubin, serum, total 0.60 mg/dL 0.00-1.00 Lab Report: Lipid Panel, HEPATIC PANEL, MICROALB/CREAT W/RATIO, HGBA1C, CBC - Hematology leukocyte count, blood 6.9 10^3/MM^3 10*3/mm3 4.6-10.2 erythrocyte (RBC) count 4.81 10^6/MM^3 10*6/mm3 4.69-6.1 3 hemoglobin, blood 11.9 g/dL 13.5-17.5 hematocrit, blood 37.2 % 41.0-53.0 mean corpuscular volume, RBC 77 fL 80-97 mean corpuscular hemoglobin, RBC 24.7 pg 27. 0-31.2 mean corpuscular hemoglobin concentration, RBC 31.9 G/DL % 31.8-35.4 red blood cell distribution width 19.0 % 11 .6-14.8 platelet count 300 10^3/MM^3 10*3/mm3 142-424 Lab Report: Lipid Panel, HEPATIC PANEL, MICROALB/CREAT W/RATIO, HGBA1C, CBC - Lab microalbumin, urine 10 0-19 Lab Report: Prothrombin Time - Coagulati on prothrombin time (patient) 17.8 SECS s 11.1-13.4 international normalized ratio (INR) 2.0 1.0-3.5 prothrombin time (patient) 19.9 SECS s 11.1-13.4 international normalized ratio (INR) 2.4 1.0-3.5 prothrombin time (patient) 21.3 SECS s 11.1-13.4 international normalized ratio (INR) 2.7 1.0-3.5 prothrombin time (patient) 19.9 SECS s 11.1-13.4 international normalized ratio (INR) 2.4 1.0-3.5 Encounters Code Encounter Date Provider Facility CPT-32313 Level 3 Est. Patient 19:43:34 CDT Mitch luis [facility] CPT-28421 Level 4 Est. Patient 09:30:18 CDT Mitch luis [facility] CPT-20339 Level 3 Est. Patient 15:10:14 CDT Joe Jason kamara [facility] CPT-50366 Level 3 Est. Patient 15:03:46 CDT Joe Jason kamara [facility] CPT-53111 Level 3 Est. Patient 14:21:06 CDT Mitch luis [facility]-47579 Level 3 Est. Patient 14:52:06 CDT Joe Jason kamara [facility] CPT-30962 Level 3 Est. Patient 09:34:30 BUSINESS OBJECTS Mitch luis [facility] CPT-80231 Level 3 Est. Patient 09:37:15 CDT Mitch luis [facility] CPT-91068 Level 3 Est. Patient 17:01:00 BUSINESS OBJECTS Mitch luis [facility] CPT-52188 Level 3 Est. Patient 13:53:19 BUSINESS OBJECTS Mitch luis [facility] CPT-28506 Level 3 Est. Patient 19:19:37 BUSINESS OBJECTS Mitch luis [facility] CPT-04396 Level 3 Est. Patient 13:25:53 BUSINESS OBJECTS Tavo toure MD [facility] CPT-38945 Level 3 Est. Patient 18:17:28 CDT Mitch luis [facility] CPT-79893 Level 3 Est. Patient 15:22:57 CDT Mitch luis [facility] CPT-27534 Level 3 Est. Patient 18:21:50 CDT Mitch luis [facility] CPT-63008 Level 3 Est. Patient 18:20:38 CDT Mitch luis [facility] CPT-20653 Level 3 Est. Patient 15:37:55 CDT Mitch luis [facility] CPT-60546 Level 2 Est. Patient 15:54:44 CDT Carmine benton MD [facility] CPT-72637 Level 3 Est. Patient 21:46:01 BUSINESS OBJECTS Mitch luis [facility] CPT-08869 Level 3 Est. Patient 22:15:50 CDT Mitch luis [facility] CPT-21019 Level 3 Est. Patient 10:48:15 CDT Mitch luis [facility] CPT-35688 Level 3 Est. Patient 23:20:57 CDT Tavo toure MD [facility] CPT-53950 Level 3 Est. Patient 16:26:13 CDT Mitch luis [facility] Procedures Code Procedure Name Date Entry Date Standard Desc ription CPT-92216 Venipuncture Draw Fee 09:26:17 CDT CPT-13711 PT/INR - LAB USE ONLY 13:32:49 BUSINESS OBJECTS CPT-06323 Venipuncture Draw Fee 13:32:49 BUSINESS OBJECTS CPT-58422 PT/INR - LAB USE ONLY 10:34:49 BUSINESS OBJECTS CPT-73547 Venipuncture Draw Fee 10:34:48 BUSINESS OBJECTS CPT-04049 PT/INR - LAB USE ONLY 09:22:03 BUSINESS OBJECTS CPT-51567 Venipuncture Draw Fee 09:22:02 BUSINESS OBJECTS CPT-97899 Hemoccult IFOBT - LAB USE ONLY 10:27:22 CDT CPT-04221 Venipuncture Draw Fee 08:27:08 CDT CPT-60886 Liver Profile - LAB USE ONLY 08:27:07 CDT 2 CPT-27193 Microalbumin - LAB USE ONLY 08:27:07 CDT 20 25/05/09 CPT-11675 PT/INR - LAB USE ONLY 08:27:07 CDT CPT-66396 HGBA1C - LAB USE ONLY 08:27:07 CDT CPT-55637 CBC - LAB USE ONLY 08:27:07 CDT CPT-82119 Venipuncture Draw Fee 11:09:14 CDT CPT-36392 Venipuncture Draw Fee 08:32:21 BUSINESS OBJECTS CPT-19794 Venipuncture Draw Fee 09:38:56 BUSINESS OBJECTS CPT-44612 No Charge Offi Visit 21:36:07 CDT 1 CPT-23765 Venipuncture Draw Fee 10:13:28 BUSINESS OBJECTS CPT-76837 Venipuncture Draw Fee 08:31:11 CDT CPT-07615 Aspir/Inject Med Joint 18:17:28 CDT CPT-49848 Venipuncture Draw Fee 10:13:30 CDT CPT-26822 Venipuncture Draw Fee 08:31:43 BUSINESS OBJECTS CPT-JTINJ Joint Injection 18:34:50 CDT CPT-61726 Knee 3V 12:25:09 CDT CPT-26183 Venipuncture Draw Fee 12:15:57 CDT CPT-060 Medical Surveillance Exam 21:31:43 CDT 2011 CPT-00049 Venipuncture Draw Fee 08:32:05 BUSINESS OBJECTS CPT-OV Office Visit 18:19:06 CDT
--- OUTSIDE RECORDS SUMMARY | 2020-01-18 11:43 | XMS REPORT | Clinical Summary ---
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.96 Active Mitch Arnol Urbina DO Osteoarthrosis, unspecified whether generalized or localized, involving lower leg CELLULITIS, GROIN, LEFT ICD-682.2 Inactive Bruc e W Carlitos DO SEROMA ICD-998.13 Inactive Mitch W Carlitos DO REACTIVE HYPOGLYCEMIA ICD-251.2 Inactive Mitch Urbina DO LONG-TERM (CURRENT) USE OF ANTICOAGULANTS ICD-V58.61 Inactive Mitch Urbina DO EDEMA ICD-782.3 Inactive Mitch Urbina DO DIZZINESS ICD-780.4 Inactive Mitch Urbina DO 10/23 GOUT, RIGHT WRIST ICD-274.9 Inactive Mitch Ambrose Le e DO BRUISE ICD-924.9 Inactive Mitch W Carlitos DO OLECRANON BURSITIS, RIGHT ICD-726.33 Inactive Mitch Urbina DO UNSPECIFIED ANEMIA ICD-285.9 Inactive Mitch Ambrose L ee DO Malaise and fatigue ICD-780.79 Inactive Mitch W Carlitos DO Cough, chronic ICD-786.2 Inactive Mitch Urbina D O Sebaceous cyst, infected ICD-706.2 Inactive Mitch W Carlitos DO Cellulitis ICD-682.9 Inactive Mitch W Carlitos DO 10/23 Medication List Medication Instructions Start Date Stop Date Generic Name NDC Status Provider Patient Instruction FAMOTIDINE 20 MG ORAL TABLET by mouth twice a day 2017 FAMOTIDINE [id number] No Longer Active Mitch Urbina DO Active COLCRYS 0.6 MG ORAL TABLET 1 tab qid prn gout C OLCHICINE 71473508745 No Longer Active Mitch Urbina DO Active GLIMEPIRIDE 2 MG ORAL TABLET 1 po BID GLIMEPIRID E 65575624455 Active Renee Oconnor ORDERLY Active KEFLEX 500 MG ORAL CAPSULE 1 po qid CEPHALEXI N 07081429122 No Longer Active Mitch Urbina DO Active LOSARTAN POTASSIUM 100 MG ORAL TABLET 1 pill by mouth daily, for blood pressure LOSARTAN POTASSIUM 49723687593 Active Ana Wallace Active AMLODIPINE BESYLATE 5 MG ORAL TABLET 1 tablet by mouth daily 201 01/20/04 AMLODIPINE BESYLATE 91128261514 No Longer Active Joe fulton APRN Active MITIGARE 0.6 MG ORAL CAPSULE 2 capsules at onset of go ut pain, then take one capsule at 1 hour if symptoms persist. COLCHICINE 59 553446975 Active Mitch Urbina DO Active COUMADIN 1 MG ORAL TABLET 2 tabs orally daily with the 5mg tab to equal 7mg daily WARFARIN SODIUM 04674934548 Active Ana Wallace Active INVOKANA 100 MG ORAL TABLET 1 tablet orally daily CANAGLIFLOZIN 74548894411 Active Mitch Urbina DO Active MINOXIDIL 2.5 MG ORAL TABLET 1 tablet daily for high blood press ure MINOXIDIL 26585754652 Active Mitch Urbina DO Active MECLIZINE HCL 25 MG ORAL TABLET 1 po tid 3 days, then 1/2 ta b tid 3 days MECLIZINE HCL 04594969655 No Longer Active Corey SEGURA Active ALLOPURINOL 300 MG ORAL TABLET Take 1 tablet by mouth daily 2012 ALLOPURINOL 35741718562 No Longer Active Corey SEGURA Active CLONIDINE HCL 0.1 MG ORAL TABLET 1 po bid 7 days, then 1/2 t ab po bid 7 days CLONIDINE HCL 50178172459 No Longer Active Corey SEGURA Active COUMADIN 5 MG ORAL TABLET 1 tab PO daily WARFAR IN SODIUM 37235440027 Active Mitch Urbina DO Active COUMADIN 4 MG ORAL TABLET 1 tablet daily WARFAR IN SODIUM 70735018557 No Longer Active Corey SEGURA Active POLYTRIM 07187-2.1 UNIT/ML-% OPHTHALMIC SOLUTION 1 rui p in affected eye every 3 hours while awake x 7 days POLYMYXIN B-TRIMETHOP RIM 40909405321 No Longer Active Corey SEGURA Active LOSARTAN POTASSIUM-HCTZ 100-12.5 MG ORAL TABLET 1 by m outh daily for high blood pressure LOSARTAN POTASSIUM-HCTZ 63966017970 No Longer A ctive Mitch Urbina DO Active LISINOPRIL-HYDROCHLOROTHIAZIDE 20-12.5 MG ORAL TABLET 1 tab by m outh daily LISINOPRIL-HYDROCHLOROTHIAZIDE 30324942778 No Longer Active Mitch Urbina DO Active LISINOPRIL 20 MG ORAL TABLET 1 tab po at HS LIS INOPRIL 45211696746 No Longer Active Mitch Urbina DO Active COUMADIN 5 MG ORAL TABLET 1 by mouth every other day 2 WARFARIN SODIUM 73985650107 No Longer Active Mitch Urbina DO Active COUMADIN 6 MG ORAL TABLET 1 by mouth every other day 2 WARFARIN SODIUM 25017585803 No Longer Active Mitch Urbina DO Active SIMVASTATIN 40 MG ORAL TABLET 1 tab daily at bedtime SIMVASTATIN 68029012042 Active Mitch Urbina DO Active SIMVASTATIN 20 MG ORAL TABLET 1 tab daily at bedtime 2 SIMVASTATIN 09215242161 No Longer Active Mitch Urbina DO Active LOVENOX 100 MG/ML SUBCUTANEOUS SOLUTION One injection twice a da y ENOXAPARIN SODIUM 41143528177 No Longer Active Carmine Yusuf MD Active JANUVIA 50 MG ORAL TABLET Take one by mouth daily SITAGLIPTIN PHOSPHATE 90983344921 Active Mitch W Carlitos DO Active JANUVIA 100 MG ORAL TABLET 1/2 by mouth every day 2011 SITAGLIPTIN PHOSPHATE 20477879308 No Longer Active Bijal Segal RN Acti ve METFORMIN HCL 500 MG ORAL TABLET 2 by mouth twice daily METFORMIN HCL 68707643383 Active Mitch Arnol Urbina DO Active COLCRYS 0.6 MG ORAL TABLET 1 po q 6 hours prn gout pain COLCHICINE 37276726846 No Longer Active Camila Reese Active LISINOPRIL 5 MG ORAL TABLET 1 by mouth every day 11/17 LISINOPRIL 15182197841 No Longer Active Nguyen Perez Active KLOR-CON 20 MEQ ORAL PACKET Take one by mouth daily 09/10/08 POTASSIUM CHLORIDE 80149813919 No Longer Active Nguyen Perez Active FUROSEMIDE 40 MG ORAL TABLET 1 by mouth daily F UROSEMIDE 55688585036 No Longer Active Nguyen Perez Active PROVIGIL 200 MG ORAL TABLET 1/2 tab po q day MODA FINIL 29292156892 Active Renee Elvin BURNETTN Active PROVIGIL 100 MG ORAL TABLET Take one by mouth daily 08/20/04 MODAFINIL 49759083184 No Longer Active Mitch Urbina DO Active BACTRIM DS 800-160 MG ORAL TABLET 1 tab by mouth twice daily 201 10/19/09 TRIMETHOPRIM-SULFAMETHOXAZOLE 56980518287 No Longer Active C alberto Hays MD Active ADULT ASPIRIN LOW STRENGTH 81 MG ORAL TABLET DISINTEGR ATING 1 by mouth every daily ASPIRIN 94363517826 Active Mitch Urbina DO Ac tive METOPROLOL TARTRATE 50 MG ORAL TABLET 1 by mouth twice daily METOPROLOL TARTRATE 73109484399 Active Mitch Urbina DO Active BACTRIM DS 800-160 MG ORAL TABLET 1 tab by mouth twice daily 201 10/19/09 BACTRIM DS 800-160 MG ORAL TABLET 563399 TRIMETHOPRIM-SULFAMETHOXAZOLE Inactive PROVIGIL 100 MG ORAL TABLET Take one by mouth daily 08/20/04 PROVIGIL 100 MG ORAL TABLET 081522 MODAFINIL Inactive FUROSEMIDE 40 MG ORAL TABLET 1 by mouth daily FUROSEMIDE 40 MG ORAL TABLET 339526 FUROSEMIDE Inactive KLOR-CON 20 MEQ ORAL PACKET Take one by mouth daily 09/10/08 KLOR- CON 20 MEQ ORAL PACKET 5142360 POTASSIUM CHLORIDE Inactive LISINOPRIL 5 MG ORAL TABLET 1 by mouth every day 11/17 LISINOPRIL 5 MG ORAL TABLET 470087 LISINOPRIL Inactive COLCRYS 0.6 MG ORAL TABLET 1 po q 6 hours prn gout pain COLCRYS 0.6 MG ORAL TABLET 014214 COLCHICINE Inactive JANUVIA 100 MG ORAL TABLET 1/2 by mouth every day 2011 JANUVIA 100 MG ORAL TABLET SITAGLIPTIN PHOSPHATE Inactive SIMVASTATIN 20 MG ORAL TABLET 1 tab daily at bedtime 2 SIMVASTATIN 20 MG ORAL TABLET 735310 SIMVASTATIN Inactive COUMADIN 6 MG ORAL TABLET 1 by mouth every other day COUMADIN 6 MG ORAL TABLET 412662 WARFARIN SODIUM Inactive COUMADIN 5 MG ORAL TABLET 1 by mouth every other day COUMADIN 5 MG ORAL TABLET 428353 WARFARIN SODIUM Inactive LISINOPRIL 20 MG ORAL TABLET 1 tab po at HS LISINOPRIL 20 MG ORAL TABLET 261737 LISINOPRIL Inactive LISINOPRIL-HYDROCHLOROTHIAZIDE 20-12.5 MG ORAL TABLET 1 tab by m outh daily LISINOPRIL-HYDROCHLOROTHIAZIDE 20-12.5 MG ORAL TABLET 467587 LISINOPRIL-HYDROCHLOROTHIAZIDE Inactive POLYTRIM 97358-4.1 UNIT/ML-% OPHTHALMIC SOLUTION 1 rui p in affected eye every 3 hours while awake x 7 days POLYTRIM 1000 0-0.1 UNIT/ML-% OPHTHALMIC SOLUTION 492512 POLYMYXIN B-TRIMETHOPRIM Inactive COUMADIN 4 MG ORAL TABLET 1 tablet daily COUMADIN 4 MG ORAL TABLET 154750 WARFARIN SODIUM Inactive CLONIDINE HCL 0.1 MG ORAL TABLET 1 po bid 7 days, then 1/2 t ab po bid 7 days CLONIDINE HCL 0.1 MG ORAL TABLET 157222 CLONIDIN E HCL Inactive ALLOPURINOL 300 MG ORAL TABLET Take 1 tablet by mouth daily 2012 ALLOPURINOL 300 MG ORAL TABLET 831666 ALLOPURINOL I nactive MECLIZINE HCL 25 MG ORAL TABLET 1 po tid 3 days, then 1/2 ta b tid 3 days MECLIZINE HCL 25 MG ORAL TABLET 303571 MECLIZINE HCL Inactive AMLODIPINE BESYLATE 5 MG ORAL TABLET 1 tablet by mouth daily 201 01/20/04 AMLODIPINE BESYLATE 5 MG ORAL TABLET 191960 AMLODIPINE BESYLATE Inactive KEFLEX 500 MG ORAL CAPSULE 1 po qid K EFLEX 500 MG ORAL CAPSULE 586497 CEPHALEXIN Inactive COLCRYS 0.6 MG ORAL TABLET 1 tab qid prn gout COLCRYS 0.6 MG ORAL TABLET 999926 COLCHICINE Inactive FAMOTIDINE 20 MG ORAL TABLET by mouth twice a day 2017 FAMOTIDINE 20 MG ORAL TABLET 387881 FAMOTIDINE Inactive LOVENOX 100 MG/ML SUBCUTANEOUS SOLUTION One injection twice a da y LOVENOX 100 MG/ML SUBCUTANEOUS SOLUTION 999831 ENOXAPAR IN SODIUM Inactive Vital Signs Date Name Value Unit Range Description blood pressure, diastolic 81 mm[Hg] BP mane blood pressure, systolic 161 mm[Hg] BP sys height E&M 70 [in_us] Bdy height pulse rate E&M 65 /min Heart rate temperature E&M 98.1 [degF] Body temp erature weight E&M 228.5 [lb_av] Weight Measure d blood pressure, diastolic 82 mm[Hg] BP mane [...] weight E&M 226.5 [lb_av] Weight Measure d Diagnostic Results Date Name Value Unit Range Description Lab Report: Basic Metabolic Panel - Chem istry sodium, serum 139 mmol/L 575-214 3745/07/17 potassium, serum 4.2 mmol/L 3.5-5.2 chloride, serum 102 mmol/L 98-107 carbon dioxide, venous blood 28.9 mmol/L 21.0-32 .0 blood glucose 211 mg/dL 65-110 calcium, serum 10.6 mg/dL 8.5-10.1 urea nitrogen, blood 29 mg/dL 7-18 creatinine, serum 1.24 mg/dL 0.60-1.30 sodium, serum 141 mmol/L 238-002 6574/08/07 potassium, serum 4.5 mmol/L 3.5-5.2 chloride, serum [...] ... - Chemistry sodium, serum 144 mmol/L 828-867 2174/06/12 carbon dioxide, venous blood 26.6 mmol/L 21.0-32 [...] 0.00-4.00 Lab Report: Lipid Panel, HEPATIC PANEL, HGBA1C - Chemistry cholesterol, serum 136 mg/dL 660-864 7489/12/06 triglyceride, serum, fasting 247 mg/dL 30-200 HDL cholesterol, serum 41 mg/dL 32-60 LDL cholesterol, serum 46 mg/dL 0-130 aspartate aminotransferase (SGOT), serum 22 U/L 15-37 alanine aminotransferase (SGPT), serum 30 U/L 12-78 bilirubin, serum, total 0.80 mg/dL 0.00-1.00 hemoglobin A1C, blood, as % of total hemoglobin 6.4 % 4.3-6.0 Encounters Code Encounter Date Provider Facility CPT-50635 Level 3 Est. Patient 18:25:53 CDT Mitch luis [facility] CPT-27163 Level 3 Est. Patient 19:43:34 CDT Mitch luis [facility] CPT-96345 Level 4 Est. Patient 09:30:18 CDT Mitch luis [facility] CPT-49424 Level 3 Est. Patient 15:10:14 CDT Joe kamara [facility] CPT-52662 Level 3 Est. Patient 15:03:46 CDT Joe kamara [facility] CPT-12482 Level 3 Est. Patient 14:21:06 CDT Mitch luis [facility] CPT-91939 Level 3 Est. Patient 14:52:06 [facility] Patient 09:34:30 GUIDANCE COUNSELOR Mitch luis [facility]-18217 Level 3 Est. Patient 09:37:15 CDT Mitch Ambrose L janelle [facility]-73220 Level 3 Est. Patient 17:01:00 GUIDANCE COUNSELOR Mitch Ambrose L janelle [facility] CPT-45003 Level 3 Est. Patient 13:53:19 GUIDANCE COUNSELOR Mitch W L janelle [facility] CPT-39387 Level 3 Est. Patient 19:19:37 GUIDANCE COUNSELOR Mitch W L janelle [facility] CPT-33567 Level 3 Est. Patient 13:25:53 GUIDANCE COUNSELOR Tavo toure MD [facility]-90773 Level 3 Est. Patient 18:17:28 CDT Mitch luis [facility] CPT-88258 Level 3 Est. Patient 15:22:57 CDT Mitch W L janelle [facility]-32067 Level 3 Est. Patient 18:21:50 CDT Mitch Arnol L janelle [facility] CPT-14671 Level 3 Est. Patient 18:20:38 CDT Mitch Arnol L janelle [facility]-74091 Level 3 Est. Patient 15:37:55 CDT Mitch W L janelle [facility] CPT-49315 Level 2 Est. Patient 15:54:44 CDT Carmine benton MD [facility]-59344 Level 3 Est. Patient 21:46:01 GUIDANCE COUNSELOR Mitch W L janelle [facility]-04210 Level 3 Est. Patient 22:15:50 CDT Mitch W L janelle [facility] CPT-07821 Level 3 Est. Patient 10:48:15 CDT Mitch luis [facility] CPT-63979 Level 3 Est. Patient 23:20:57 CDT Tavo toure MD [facility] CPT-89914 Level 3 Est. Patient 16:26:13 CDT Mitch luis [facility] Procedures Code Procedure Name Date Entry Date Standard Desc ription CPT-JTINJ Asp/Joint Injection 18:47:02 CDT CPT-39958 Venipuncture Draw Fee 09:26:17 CDT CPT-00390 PT/INR - LAB USE ONLY 13:32:49 GUIDANCE COUNSELOR CPT-84120 Venipuncture Draw Fee 13:32:49 GUIDANCE COUNSELOR CPT-69469 PT/INR - LAB USE ONLY 10:34:49 GUIDANCE COUNSELOR CPT-71138 Venipuncture Draw Fee 10:34:48 GUIDANCE COUNSELOR CPT-19985 PT/INR - LAB USE ONLY 09:22:03 GUIDANCE COUNSELOR CPT-21456 Venipuncture Draw Fee 09:22:02 GUIDANCE COUNSELOR CPT-80502 Hemoccult IFOBT - LAB USE ONLY 10:27:22 CDT CPT-43996 Venipuncture Draw Fee 08:27:08 CDT CPT-42039 Liver Profile - LAB USE ONLY 08:27:07 CDT 2 CPT-96424 Microalbumin - LAB USE ONLY 08:27:07 CDT 20 25/05/09 CPT-91348 PT/INR - LAB USE ONLY 08:27:07 CDT CPT-57145 HGBA1C - LAB USE ONLY 08:27:07 CDT CPT-65263 CBC - LAB USE ONLY 08:27:07 CDT CPT-35409 Venipuncture Draw Fee 11:09:14 CDT CPT-33106 Venipuncture Draw Fee 08:32:21 GUIDANCE COUNSELOR CPT-65668 Venipuncture Draw Fee 09:38:56 GUIDANCE COUNSELOR CPT-83050 No Charge Offi Visit 21:36:07 CDT 1 CPT-87682 Venipuncture Draw Fee 10:13:28 GUIDANCE COUNSELOR CPT-46021 Venipuncture Draw Fee 08:31:11 CDT CPT-83245 Aspir/Inject Med Joint 18:17:28 CDT CPT-60621 Venipuncture Draw Fee 10:13:30 CDT CPT-82633 Venipuncture Draw Fee 08:31:43 GUIDANCE COUNSELOR CPT-JTINJ Joint Injection 18:34:50 CDT CPT-43101 Knee 3V 12:25:09 CDT CPT-43158 Venipuncture Draw Fee 12:15:57 CDT CPT-060 Medical Surveillance Exam 21:31:43 CDT 2011 CPT-94545 Venipuncture Draw Fee 08:32:05 GUIDANCE COUNSELOR CPT-OV Office Visit 18:19:06 CDT
--- OUTSIDE RECORDS SUMMARY | 2020-01-18 11:43 | XMS REPORT | Clinical Summary ---
Author Author Admin, Mitch Leon Organization [facility] Address Unknown Phone Unavailable Allergies, Adverse [...] Coronary atherosclerosis of unspecified type of vessel, [place] or graft EDEMA 782.3 Resolved Mitch Urbina [...] OLECRANON BURSITIS, RIGHT 726.33 Resolved Br ucponce Arnol Urbina DO Olecranon bursitis UNSPECIFIED ANEMIA 285.9 Resolved Mitch Arnol Urbina DO Anemia, unspecified Malaise and fatigue 780.79 Resolved Mitch Arnol Carlitos Tejeda O Other malaise and fatigue Cough, chronic 786.2 Resolved Mitch Arnol Urbina DO Cough Sebaceous cyst, infected 706.2 Resolved Mitch Arnol Urbina DO Sebaceous cyst Cellulitis 682.9 Resolved Mitch Arnol Urbina DO Cellulitis and abscess of unspecified sites 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 Carmine benton MD Benign neoplasm of colon Coumadin therapy V58.61 Active Domi Rivera MA Long-term (current) use of anticoagulants Valve replacement V43.3 Active Mitch Arnol Urbina DO Heart valve replaced by other means Narcolepsy 347.00 Active Mitch Urbina DO Narcolepsy without cataplexy CELLULITIS, GROIN, LEFT ICD-682.2 Inactive Zoya Urbina DO SEROMA ICD-998.13 Inactive Mitch Urbina DO REACTIVE HYPOGLYCEMIA ICD-251.2 Inactive Mitch Urbina DO LONG-TERM (CURRENT) USE OF ANTICOAGULANTS ICD-V58.61 Inactive Mitch Urbina DO EDEMA ICD-782.3 Inactive Mitch Urbina DO DIZZINESS ICD-780.4 Inactive Mitch Urbina DO 10/23 GOUT, RIGHT WRIST ICD-274.9 Inactive Mitch Grover e DO BRUISE ICD-924.9 Inactive Mitch Urbina DO OLECRANON BURSITIS, RIGHT ICD-726.33 Inactive Mitch Urbina DO UNSPECIFIED ANEMIA ICD-285.9 Inactive Mitch Castellano janelle DO Malaise and fatigue ICD-780.79 Inactive Mitch Urbina DO Cough, chronic ICD-786.2 Inactive Mitch Urbina Ileana O Sebaceous cyst, infected ICD-706.2 Inactive Mitch Urbina DO Cellulitis ICD-682.9 Inactive Mitch Urbina DO 10/23 Medication List Medication Instructions Start Date Stop Date Generic Name NDC Status Provider Patient Instruction COUMADIN 1 MG TAB 2 tabs orally daily with the 5mg tab to equal 7mg daily WARFARIN SODIUM 14727668088 Active Norma Cazares Active COLCRYS 0.6 MG TABS 1 tab qid prn gout COLCHICINE 60244261514 Active Norma Sage Active INVOKANA 100 MG ORAL TABS 1 tablet orally daily CANAGLIFLOZIN 08504132179 Active Mitch Urbina DO Active MINOXIDIL 2.5 MG TABS 1 tablet daily for high blood pressure 10/23 MINOXIDIL 28465437327 Active Domi Rivera MA Active AMLODIPINE BESYLATE 5 MG TABS 1 tablet by mouth daily AMLODIPINE BESYLATE 08581152504 Active Mitch Urbina DO Active MECLIZINE HCL 25 MG TAB 1 po tid 3 days, then 1/2 tab tid 3 days MECLIZINE HCL 20931012036 No Longer Active Corey SEGURA Active ALLOPURINOL 300 MG TABS Take 1 tablet by mouth daily 2 ALLOPURINOL 21383716541 No Longer Active Corey SEGURA Activ e CLONIDINE HCL 0.1 MG TABS 1 po bid 7 days, then 1/2 tab po b id 7 days CLONIDINE HCL 29085554345 No Longer Active Corey SEGURA Active COUMADIN 5 MG TABS 1 tab PO daily WARFARIN SODIUM 45034771465 Active Mitch Urbina DO Active COUMADIN 4 MG TABS 1 tablet daily WARFARIN SODI UM 31338856063 No Longer Active Corey SEGURA Active POLYTRIM 63981-0.1 UNIT/ML-% SOLN 1 drop in affected e ye every 3 hours while awake x 7 days POLYMYXIN B-TRIMETHOPRIM 22127376178 N o Longer Active Corey SEGURA Active LOSARTAN POTASSIUM-HCTZ 100-12.5 MG TABS 1 by mouth da rocky for high blood pressure LOSARTAN POTASSIUM-HCTZ 05463403215 Active Stephy Urbina DO Active LISINOPRIL-HYDROCHLOROTHIAZIDE 20-12.5 MG TABS 1 tab by mouth da rocky LISINOPRIL-HYDROCHLOROTHIAZIDE 61765304402 No Longer Active Mitch luis DO Active LISINOPRIL 20 MG TABS 1 tab po at HS LISINOPRIL 98594549102 No Longer Active Mitch Urbina DO Active COUMADIN 5 MG TABS 1 by mouth every other day WARFARIN SODIUM 36720340729 No Longer Active Mitch Urbina DO Active COUMADIN 6 MG TABS 1 by mouth every other day WARFARIN SODIUM 55308174389 No Longer Active Mitch W Carlitos DO Active SIMVASTATIN 40 MG TABS 1 tab daily at bedtime S IMVASTATIN 38387332701 Active Mitch Arnol Carlitos DO Active SIMVASTATIN 20 MG TABS 1 tab daily at bedtime S IMVASTATIN 78209227736 No Longer Active Mitch Urbina DO Active LOVENOX 100 MG/ML SC SOLN One injection twice a day 09/15/15 ENOXAPARIN SODIUM 75862953629 No Longer Active Carmine Navarrete ctive JANUVIA 50 MG TABS Take one by mouth daily DIEGO GLIPTIN PHOSPHATE 74024446830 Active Mitch Urbina DO Active JANUVIA 100 MG TABS 1/2 by mouth every day DIEGO GLIPTIN PHOSPHATE 18046474702 No Longer Active Bijal Segal RN Active METFORMIN HCL 500 MG TABS 2 by mouth twice daily METFORMIN HCL 71020063785 Active Mitch Urbina DO Active GLIMEPIRIDE 4 MG TABS 1 tab po bid GLIMEPIRIDE 885174 94552 Active Mitch Urbina DO Active COLCRYS 0.6 MG TABS 1 po q 6 hours prn gout pain 03/02 COLCHICINE 99158939786 No Longer Active Camila Reese Active LISINOPRIL 5 MG TABS 1 by mouth every day LISIN OPRIL 43012376854 No Longer Active Nguyenmac Perez Active KLOR-CON 20 MEQ PACK Take one by mouth daily 8 POTASSIUM CHLORIDE 92565067762 No Longer Active Nguyen Ana Active FUROSEMIDE 40 MG TABS 1 by mouth daily FUROSEMI DE 54851364161 No Longer Active Nguyen Ana Active PROVIGIL 200 MG TABS 1/2 tab po q day MODAFINIL 61596 511626 Active Kathie Juan RPT,RMA Active PROVIGIL 100 MG TABS Take one by mouth daily MO DAFINIL 85393364058 No Longer Active Mitch Urbina DO Active BACTRIM DS 800-160 MG TAB 1 tab by mouth twice daily 2 TRIMETHOPRIM-SULFAMETHOXAZOLE 78002957774 No Longer Active Renan Hays MD Active FAMOTIDINE 20 MG TABS by mouth twice a day FAMOTI DINE 66498219692 Active Mitch Urbina DO Active ADULT ASPIRIN LOW STRENGTH 81 MG TBDP 1 by mouth every daily ASPIRIN 55624820965 Active Mitch Ambrose Carlitos DO Active METOPROLOL TARTRATE 50 MG TABS 1 by mouth twice daily METOPROLOL TARTRATE 49730488696 Active Mitch Urbina DO Active BACTRIM DS 800-160 MG TAB 1 tab by mouth twice daily 2 BACTRIM DS 800-160 MG TAB 640957 TRIMETHOPRIM-SULFAMETHOXAZOLE Inac tive PROVIGIL 100 MG TABS Take one by mouth daily 4 PROVIGIL 100 MG TABS 188119 MODAFINIL Inactive FUROSEMIDE 40 MG TABS 1 by mouth daily FU ROSEMIDE 40 MG TABS 092545 FUROSEMIDE Inactive KLOR-CON 20 MEQ PACK Take one by mouth daily 8 KLOR-CON 20 MEQ PACK 116187 POTASSIUM CHLORIDE Inactive LISINOPRIL 5 MG TABS 1 by mouth every day LISINOPRIL 5 MG TABS 387715 LISINOPRIL Inactive COLCRYS 0.6 MG TABS 1 po q 6 hours prn gout pain 03/02 COLCRYS 0.6 MG TABS 556256 COLCHICINE Inactive JANUVIA 100 MG TABS 1/2 by mouth every day JANUVI A 100 MG TABS SITAGLIPTIN PHOSPHATE Inactive SIMVASTATIN 20 MG TABS 1 tab daily at bedtime SIMVASTATIN 20 MG TABS 872556 SIMVASTATIN Inactive COUMADIN 6 MG TABS 1 by mouth every other day COUMADIN 6 MG TABS 528156 WARFARIN SODIUM Inactive COUMADIN 5 MG TABS 1 by mouth every other day COUMADIN 5 MG TABS 397170 WARFARIN SODIUM Inactive LISINOPRIL 20 MG TABS 1 tab po at HS KOKI NOPRIL 20 MG TABS 939554 LISINOPRIL Inactive LISINOPRIL-HYDROCHLOROTHIAZIDE 20-12.5 MG TABS 1 tab by mouth da rocky LISINOPRIL-HYDROCHLOROTHIAZIDE 20-12.5 MG TABS 952956 LISINOPRIL-HYDROCHLOROTHIAZIDE Inactive POLYTRIM 13003-3.1 UNIT/ML-% SOLN 1 drop in affected e ye every 3 hours while awake x 7 days POLYTRIM 04955-3.1 UNIT/ML-% SOLN 59391 7 POLYMYXIN B-TRIMETHOPRIM Inactive COUMADIN 4 MG TABS 1 tablet daily COUMADIN 4 MG TABS 016843 WARFARIN SODIUM Inactive CLONIDINE HCL 0.1 MG TABS 1 po bid 7 days, then 1/2 tab po b id 7 days CLONIDINE HCL 0.1 MG TABS 576977 CLONIDINE HCL I nactive ALLOPURINOL 300 MG TABS Take 1 tablet by mouth daily 2 ALLOPURINOL 300 MG TABS 242203 ALLOPURINOL Inactive MECLIZINE HCL 25 MG TAB 1 po tid 3 days, then 1/2 tab tid 3 days MECLIZINE HCL 25 MG TAB 025234 MECLIZINE HCL Inactive LOVENOX 100 MG/ML SC SOLN One injection twice a day 09/15/15 LOVENOX 100 MG/ML SC SOLN 440912 ENOXAPARIN SODIUM Inactive Vital Signs Date Name Value Unit Range Description blood pressure, diastolic - 8462-4 62 mm[Hg] BP mane blood pressure, systolic - 8480-6 145 mm[Hg] BP sys pulse rate E&M - 8867-4 74 /min H eart rate temperature E&M 98.1 [degF] Body temp erature weight E&M - 3141-9 226.0 [lb_av] Weigh t Measured blood pressure, diastolic - 8462-4 70 mm[Hg] BP mane blood pressure, systolic - 8480-6 149 mm[Hg] BP sys pulse rate E&M - 8867-4 72 /min H eart rate temperature E&M 98.4 [degF] Body temp erature weight E&M - 3141-9 227.5 [lb_av] Weigh t Measured blood pressure, diastolic - 8462-4 82 mm[Hg] BP mane blood pressure, systolic - 8480-6 178 mm[Hg] BP sys pulse rate E&M - 8867-4 77 /min H eart rate temperature E&M 98.3 [degF] Body temp erature weight E&M - 3141-9 240.5 [lb_av] Weigh t Measured Diagnostic Results Date Name Value Unit Range Description Chart Maintenance: hemoccult added to [facility] - Chemistry occult blood, stool (E&M) Positive Lab Report: CBC - Hematology leukocyte count, blood 7.1 10^3/MM^3 10*3/mm3 4.6-10.2 erythrocyte (RBC) count 4.57 10^6/MM^3 10*6/mm3 4.69-6.1 3 hemoglobin, blood 12.2 g/dL 13.5-17.5 hematocrit, blood 37.3 % 41.0-53.0 mean corpuscular volume, RBC 82 fL 80-97 mean corpuscular hemoglobin, RBC 26.6 pg 27. 0-31.2 mean corpuscular hemoglobin concentration, RBC 32.6 G/DL % 31.8-35.4 red blood cell distribution width 18.0 % 11 .6-14.8 platelet count 276 10^3/MM^3 10*3/mm3 142-424 Lab Report: Comp. Metabolic Panel - Chem istry sodium, serum 136 mmol/L 946-873 3079/01/14 carbon dioxide, venous blood 25.4 mmol/L 21.0-32 .0 potassium, serum 4.2 mmol/L 3.5-5.2 chloride, serum 100 mmol/L 98-107 blood glucose 241 mg/dL 65-110 urea nitrogen, blood 25 mg/dL 7-18 creatinine, serum 1.11 mg/dL 0.55-1.30 alanine aminotransferase (SGPT), serum 37 U/L 12-78 aspartate aminotransferase (SGOT), serum 26 U/L 15-37 calcium, serum 9.7 mg/dL 8.5-10.1 bilirubin, serum, total 0.70 mg/dL 0.00-1.00 Lab Report: HGBA1C - Chemistry hemoglobin A1C, blood, as % of total hemoglobin 6.6 % 4.3-6.0 Lab Report: HGBA1C, Prothrombin Time - C hemistry hemoglobin A1C, blood, as % of total hemoglobin 7.9 % 4.3-6.0 Lab Report: HGBA1C, Prothrombin Time - C oagulation prothrombin time (patient) 17.5 SECS s 11.1-13.4 international normalized ratio (INR) 2.1 1.0-3.5 Lab Report: Lipid Panel, HEPATIC PANEL, MICROALB/CREAT W/RATIO, HGBA1C, CBC - Chemistry cholesterol, serum 136 mg/dL 693-934 6952/08/09 triglyceride, serum, fasting 187 mg/dL 30-200 HDL cholesterol, serum 39 mg/dL 32-96 LDL cholesterol, serum 60 mg/dL 0-130 aspartate aminotransferase (SGOT), serum 24 U/L 15-37 alanine aminotransferase (SGPT), serum 29 U/L 12-78 bilirubin, serum, total 0.60 mg/dL 0.00-1.00 albumin/creatinine ratio, urine < 30 mg/g mg/g{creat} 0-2 9 hemoglobin A1C, blood, as % of total hemoglobin 6.3 % 4.3-6.0 Lab Report: Lipid Panel, HEPATIC PANEL, MICROALB/CREAT [...] Time - Coagulati on prothrombin time (patient) 14.5 SECS s 11.1-13.4 international normalized ratio (INR) 1.5 1.0-3.5 prothrombin time (patient) 16.2 SECS s 11.1-13.4 international normalized ratio (INR) 1.8 1.0-3.5 prothrombin time (patient) 15.8 SECS s 11.1-13.4 international normalized ratio (INR) 1.8 1.0-3.5 prothrombin time (patient) 19.9 SECS s 11.1-13.4 international normalized ratio (INR) 2.4 1.0-3.5 prothrombin time (patient) 16.9 SECS s 11.1-13.4 international normalized ratio (INR) 2.0 1.0-3.5 prothrombin time (patient) 15.4 SECS s 11.1-13.4 international normalized ratio (INR) 1.5 1.0-3.5 prothrombin time (patient) 17.8 SECS s 11.1-13.4 international normalized ratio (INR) 2.0 1.0-3.5 Encounters Code Encounter Date Provider Facility CPT-21490 Level 3 Est. Patient 14:21:06 CDT Mitch luis [facility] CPT-01762 Level 3 Est. Patient 14:52:06 [facility] Level 3 Est. Patient 09:34:30 ENGINEERING TEST SPECIALIST Mitch luis [facility] CPT-47771 Level 3 Est. Patient 09:37:15 CDT Mitch luis [facility] CPT-87554 Level 3 Est. Patient 17:01:00 ENGINEERING TEST SPECIALIST Mitch luis [facility] CPT-51898 Level 3 Est. Patient 13:53:19 ENGINEERING TEST SPECIALIST Mitch luis [facility] CPT-09665 Level 3 Est. Patient 19:19:37 ENGINEERING TEST SPECIALIST Mitch luis [facility] CPT-06551 Level 3 Est. Patient 13:25:53 ENGINEERING TEST SPECIALIST Tavo toure MD [facility] CPT-64536 Level 3 Est. Patient 18:17:28 CDT Mitch luis [facility] CPT-27703 Level 3 Est. Patient 15:22:57 CDT Mitch luis [facility] CPT-62156 Level 3 Est. Patient 18:21:50 CDT Mitch luis [facility] CPT-19139 Level 3 Est. Patient 18:20:38 CDT Mitch luis [facility] CPT-11927 Level 3 Est. Patient 15:37:55 CDT Mitch luis [facility] CPT-16190 Level 2 Est. Patient 15:54:44 CDT Carmine benton MD [facility] CPT-80623 Level 3 Est. Patient 21:46:01 ENGINEERING TEST SPECIALIST Mitch luis [facility] CPT-27169 Level 3 Est. Patient 22:15:50 CDT Mitch luis [facility] CPT-73193 Level 3 Est. Patient 10:48:15 CDT Mitch luis [facility] CPT-31756 Level 3 Est. Patient 23:20:57 CDT Tavo toure MD [facility] CPT-36690 Level 3 Est. Patient 16:26:13 CDT Mitch luis [facility] Procedures Code Procedure Name Date Entry Date Standard Desc ription CPT-50689 PT/INR - LAB USE ONLY 09:22:03 ENGINEERING TEST SPECIALIST CPT-35527 Venipuncture Draw Fee 09:22:02 ENGINEERING TEST SPECIALIST CPT-43988 Hemoccult IFOBT - LAB USE ONLY 10:27:22 CDT CPT-41896 Venipuncture Draw Fee 08:27:08 CDT CPT-80853 Liver Profile - LAB USE ONLY 08:27:07 CDT 2 CPT-40124 Microalbumin - LAB USE ONLY 08:27:07 CDT 20 25/05/09 CPT-48222 PT/INR - LAB USE ONLY 08:27:07 CDT CPT-94967 HGBA1C - LAB USE ONLY 08:27:07 CDT CPT-11652 CBC - LAB USE ONLY 08:27:07 CDT CPT-66831 Venipuncture Draw Fee 11:09:14 CDT CPT-15803 Venipuncture Draw Fee 08:32:21 ENGINEERING TEST SPECIALIST CPT-31913 Venipuncture Draw Fee 09:38:56 ENGINEERING TEST SPECIALIST CPT-51259 No Charge Offi Visit 21:36:07 CDT 1 CPT-38786 Venipuncture Draw Fee 10:13:28 ENGINEERING TEST SPECIALIST CPT-03495 Venipuncture Draw Fee 08:31:11 CDT CPT-71711 Aspir/Inject Med Joint 18:17:28 CDT CPT-86444 Venipuncture Draw Fee 10:13:30 CDT CPT-94362 Venipuncture Draw Fee 08:31:43 ENGINEERING TEST SPECIALIST CPT-JTINJ Joint Injection 18:34:50 CDT CPT-37724 Knee 3V 12:25:09 CDT CPT-72359 Venipuncture Draw Fee 12:15:57 CDT CPT-060 Medical Surveillance Exam 21:31:43 CDT 2011 CPT-65344 Venipuncture Draw Fee 08:32:05 ENGINEERING TEST SPECIALIST CPT-OV Office Visit 18:19:06 CDT
--- OUTSIDE RECORDS SUMMARY | 2020-01-18 11:43 | XMS REPORT | Clinical Summary ---
Author Author Admin, Mitch Leon Organization 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 COLCHICINE 59 970058112 Active Mitch Urbina DO Active COUMADIN 1 MG TAB 2 tabs orally daily with the 5mg tab to equal 7mg daily WARFARIN SODIUM 24835460902 Active Brenda Shen Active COLCRYS 0.6 MG TABS 1 tab qid prn gout COLCHICINE 43890823662 Active Norma Cazares Active INVOKANA 100 MG ORAL TABS 1 tablet orally daily CANAGLIFLOZIN 15816576661 Active Brenda Shen Active MINOXIDIL 2.5 MG TABS 1 tablet daily for high blood pressure 10/23 MINOXIDIL 30420776493 Active Ana Wallace Active MECLIZINE HCL 25 MG TAB 1 po tid 3 days, then 1/2 tab tid 3 days MECLIZINE HCL 86097368952 No Longer Active Corey SEGURA Active ALLOPURINOL 300 MG TABS Take 1 tablet by mouth daily 2 ALLOPURINOL 97273859044 No Longer Active Corey SEGURA Activ e CLONIDINE HCL 0.1 MG TABS 1 po bid 7 days, then 1/2 tab po b id 7 days CLONIDINE HCL 36201470408 No Longer Active Corey SEGURA Active COUMADIN 5 MG TABS 1 tab PO daily WARFARIN SODIUM 43798157935 Active Mitch Urbina DO Active COUMADIN 4 MG TABS 1 tablet daily WARFARIN SODI UM 55979781671 No Longer Active Corey SEGURA Active POLYTRIM 32550-3.1 UNIT/ML-% SOLN 1 drop in affected e ye every 3 hours while awake x 7 days POLYMYXIN B-TRIMETHOPRIM 37579112052 N o Longer Active Corey SEGURA Active LOSARTAN POTASSIUM-HCTZ 100-12.5 MG TABS 1 by mouth da rocky for high blood pressure LOSARTAN POTASSIUM-HCTZ 34933955006 Active Brenda Shen Active LISINOPRIL-HYDROCHLOROTHIAZIDE 20-12.5 MG TABS 1 tab by mouth da rocky LISINOPRIL-HYDROCHLOROTHIAZIDE 73073332669 No Longer Active Mitch luis DO Active LISINOPRIL 20 MG TABS 1 tab po at HS LISINOPRIL 22564281854 No Longer Active Mitch Urbina DO Active COUMADIN 5 MG TABS 1 by mouth every other day WARFARIN SODIUM 86141081513 No Longer Active Mitch Urbina DO Active COUMADIN 6 MG TABS 1 by mouth every other day WARFARIN SODIUM 15102340430 No Longer Active Mitch Urbina DO Active SIMVASTATIN 40 MG TABS 1 tab daily at bedtime S IMVASTATIN 01018648750 Active Mitch Urbina DO Active SIMVASTATIN 20 MG TABS 1 tab daily at bedtime S IMVASTATIN 51719284856 No Longer Active Mitch Urbina DO Active LOVENOX 100 MG/ML SC SOLN One injection twice a day 09/15/15 ENOXAPARIN SODIUM 09323045603 No Longer Active Carmine Navarrete ctive JANUVIA 50 MG TABS Take one by mouth daily DIEGO GLIPTIN PHOSPHATE 40016050915 Active Mitch Urbina DO Active JANUVIA 100 MG TABS 1/2 by mouth every day DIEGO GLIPTIN PHOSPHATE 57964587018 No Longer Active Bijal Segal RN Active METFORMIN HCL 500 MG TABS 2 by mouth twice daily METFORMIN HCL 50744460503 Active Mitch Urbina DO Active GLIMEPIRIDE 4 MG TABS 1 tab po bid GLIMEPIRIDE 617092 19792 Active Mitch Urbina DO Active COLCRYS 0.6 MG TABS 1 po q 6 hours prn gout pain 03/02 COLCHICINE 19240535295 No Longer Active Camila Reese Active LISINOPRIL 5 MG TABS 1 by mouth every day LISIN OPRIL 99252512220 No Longer Active Nguyen Perez Active KLOR-CON 20 MEQ PACK Take one by mouth daily 8 POTASSIUM CHLORIDE 21891743660 No Longer Active Nguyen Perez Active FUROSEMIDE 40 MG TABS 1 by mouth daily FUROSEMI DE 76549737067 No Longer Active Nguyen Perez Active PROVIGIL 200 MG TABS 1/2 tab po q day MODAFINIL 56359 250313 Active Brenda Shen Active PROVIGIL 100 MG TABS Take one by mouth daily MO DAFINIL 12364432206 No Longer Active Mitch Urbina DO Active BACTRIM DS 800-160 MG TAB 1 tab by mouth twice daily 2 TRIMETHOPRIM-SULFAMETHOXAZOLE 55106271291 No Longer Active Renan Hays MD Active FAMOTIDINE 20 MG TABS by mouth twice a day FAMOTI DINE 50996646080 Active Mitch Urbina DO Active ADULT ASPIRIN LOW STRENGTH 81 MG TBDP 1 by mouth every daily ASPIRIN 26728560562 Active Mitch Urbina DO Active METOPROLOL TARTRATE 50 MG TABS 1 by mouth twice daily METOPROLOL TARTRATE 49841249043 Active Mitch Urbina DO Active BACTRIM DS 800-160 MG TAB 1 tab by mouth twice daily 2 BACTRIM DS 800-160 MG TAB 888132 TRIMETHOPRIM-SULFAMETHOXAZOLE Inac tive PROVIGIL 100 MG TABS Take one by mouth daily 4 PROVIGIL 100 MG TABS 968356 MODAFINIL Inactive FUROSEMIDE 40 MG TABS 1 by mouth daily FU ROSEMIDE 40 MG TABS 443924 FUROSEMIDE Inactive KLOR-CON 20 MEQ PACK Take one by mouth daily 8 KLOR-CON 20 MEQ PACK 1640207 POTASSIUM CHLORIDE Inactive LISINOPRIL 5 MG TABS 1 by mouth every day LISINOPRIL 5 MG TABS 042417 LISINOPRIL Inactive COLCRYS 0.6 MG TABS 1 po q 6 hours prn gout pain 03/02 COLCRYS 0.6 MG TABS 047507 COLCHICINE Inactive JANUVIA 100 MG TABS 1/2 by mouth every day JANUVI A 100 MG TABS SITAGLIPTIN PHOSPHATE Inactive SIMVASTATIN 20 MG TABS 1 tab daily at bedtime SIMVASTATIN 20 MG TABS 571561 SIMVASTATIN Inactive COUMADIN 6 MG TABS 1 by mouth every other day COUMADIN 6 MG TABS 297449 WARFARIN SODIUM Inactive COUMADIN 5 MG TABS 1 by mouth every other day COUMADIN 5 MG TABS 479947 WARFARIN SODIUM Inactive LISINOPRIL 20 MG TABS 1 tab po at HS KOKI NOPRIL 20 MG TABS 265644 LISINOPRIL Inactive LISINOPRIL-HYDROCHLOROTHIAZIDE 20-12.5 MG TABS 1 tab by mouth da rocky LISINOPRIL-HYDROCHLOROTHIAZIDE 20-12.5 MG TABS 958275 LISINOPRIL-HYDROCHLOROTHIAZIDE Inactive POLYTRIM 43454-1.1 UNIT/ML-% SOLN 1 drop in affected e ye every 3 hours while awake x 7 days POLYTRIM 04974-1.1 UNIT/ML-% SOLN 18635 7 POLYMYXIN B-TRIMETHOPRIM Inactive COUMADIN 4 MG TABS 1 tablet daily COUMADIN 4 MG TABS 019761 WARFARIN SODIUM Inactive CLONIDINE HCL 0.1 MG TABS 1 po bid 7 days, then 1/2 tab po b id 7 days CLONIDINE HCL 0.1 MG TABS 679398 CLONIDINE HCL I nactive ALLOPURINOL 300 MG TABS Take 1 tablet by mouth daily 2 ALLOPURINOL 300 MG TABS 314191 ALLOPURINOL Inactive MECLIZINE HCL 25 MG TAB 1 po tid 3 days, then 1/2 tab tid 3 days MECLIZINE HCL 25 MG TAB 329510 MECLIZINE HCL Inactive AMLODIPINE BESYLATE 5 MG TABS 1 tablet by mouth daily AMLODIPINE BESYLATE 5 MG TABS 137801 AMLODIPINE BESYLATE Inactive LOVENOX 100 MG/ML SC SOLN One injection twice a day 09/15/15 LOVENOX 100 MG/ML SC SOLN 552602 ENOXAPARIN SODIUM Inactive Vital Signs Date Name Value Unit Range Description blood pressure, diastolic - 8462-4 71 mm[Hg] BP mane blood pressure, systolic - 8480-6 155 mm[Hg] BP sys height E&M - 8302-2 70 [in_us] Bdy h eight pulse rate E&M - 8867-4 70 /min H eart rate temperature E&M 98.5 [degF] Body temp erature weight E&M - 3141-9 228 [lb_av] Weigh t Measured blood pressure, diastolic - 8462-4 62 mm[Hg] [...] - 3141-9 227.5 [lb_av] Weigh t Measured Diagnostic Results Date Name Value Unit Range Description Chart Maintenance: hemoccult added to [facility] - Chemistry occult blood, stool (E&M) Positive Lab Report: Lipid Panel, HEPATIC PANEL, MICROALB/CREAT W/RATIO, HGBA1C, CBC - Chemistry cholesterol, serum 136 mg/dL 222-380 2877/08/09 triglyceride, serum, fasting 187 mg/dL 30-200 HDL [...] Time - Coagulati on prothrombin time (patient) 19.9 SECS s 11.1-13.4 international normalized ratio (INR) 2.4 1.0-3.5 prothrombin time (patient) 17.8 SECS s 11.1-13.4 international normalized ratio (INR) 2.0 1.0-3.5 prothrombin time (patient) 19.9 SECS s 11.1-13.4 international normalized ratio (INR) 2.4 1.0-3.5 prothrombin time (patient) 21.3 SECS s 11.1-13.4 international normalized ratio (INR) 2.7 1.0-3.5 prothrombin time (patient) 16.9 SECS s 11.1-13.4 international normalized ratio (INR) 2.0 1.0-3.5 prothrombin time (patient) 15.4 SECS s 11.1-13.4 international normalized ratio (INR) 1.5 1.0-3.5 Encounters Code Encounter Date Provider Facility CPT-50653 Level 3 Est. Patient 15:10:14 CDT Joe kamara [facility]-24709 Level 3 Est. Patient 15:03:46 CDT Joe kamara [facility] CPT-16878 Level 3 Est. Patient 14:21:06 CDT Mitch luis [facility] CPT-78028 Level 3 Est. Patient 14:52:06 CDT Joe kamara [facility] CPT-67769 Level 3 Est. Patient 09:34:30 RN CVOR Mitch luis [facility] CPT-95839 Level 3 Est. Patient 09:37:15 CDT Mitch luis [facility] CPT-06677 Level 3 Est. Patient 17:01:00 RN CVOR Mitch luis [facility] CPT-83395 Level 3 Est. Patient 13:53:19 RN CVOR Mitch luis [facility] CPT-13569 Level 3 Est. Patient 19:19:37 RN CVOR Mitch luis [facility] CPT-26581 Level 3 Est. Patient 13:25:53 RN CVOR Tavo toure MD [facility] CPT-57551 Level 3 Est. Patient 18:17:28 CDT Mitch luis [facility] CPT-73789 Level 3 Est. Patient 15:22:57 CDT Mitch luis [facility] CPT-14115 Level 3 Est. Patient 18:21:50 CDT Mitch luis [facility] CPT-96045 Level 3 Est. Patient 18:20:38 CDT Mitch luis [facility] CPT-58741 Level 3 Est. Patient 15:37:55 CDT Mitch luis [facility] CPT-20024 Level 2 Est. Patient 15:54:44 CDT Carmine benton MD [facility] CPT-32341 Level 3 Est. Patient 21:46:01 RN CVOR Mitch luis [facility] CPT-00365 Level 3 Est. Patient 22:15:50 CDT Mitch luis [facility] CPT-58613 Level 3 Est. Patient 10:48:15 CDT Mitch luis [facility] CPT-94849 Level 3 Est. Patient 23:20:57 CDT Tavo toure MD [facility] CPT-09745 Level 3 Est. Patient 16:26:13 CDT Mitch luis [facility] Procedures Code Procedure Name Date Entry Date Standard Desc ription CPT-87454 PT/INR - LAB USE ONLY 13:32:49 RN CVOR CPT-35899 Venipuncture Draw Fee 13:32:49 RN CVOR CPT-43814 PT/INR - LAB USE ONLY 10:34:49 RN CVOR CPT-40378 Venipuncture Draw Fee 10:34:48 RN CVOR CPT-25398 PT/INR - LAB USE ONLY 09:22:03 RN CVOR CPT-28572 Venipuncture Draw Fee 09:22:02 RN CVOR CPT-17231 Hemoccult IFOBT - LAB USE ONLY 10:27:22 CDT CPT-79524 Venipuncture Draw Fee 08:27:08 CDT CPT-15629 Liver Profile - LAB USE ONLY 08:27:07 CDT 2 CPT-58076 Microalbumin - LAB USE ONLY 08:27:07 CDT 20 25/05/09 CPT-02494 PT/INR - LAB USE ONLY 08:27:07 CDT CPT-50991 HGBA1C - LAB USE ONLY 08:27:07 CDT CPT-41733 CBC - LAB USE ONLY 08:27:07 CDT CPT-30786 Venipuncture Draw Fee 11:09:14 CDT CPT-81277 Venipuncture Draw Fee 08:32:21 RN CVOR CPT-41506 Venipuncture Draw Fee 09:38:56 RN CVOR CPT-09536 No Charge Offi Visit 21:36:07 CDT 1 CPT-13066 Venipuncture Draw Fee 10:13:28 RN CVOR CPT-30914 Venipuncture Draw Fee 08:31:11 CDT CPT-55916 Aspir/Inject Med Joint 18:17:28 CDT CPT-92087 Venipuncture Draw Fee 10:13:30 CDT CPT-98260 Venipuncture Draw Fee 08:31:43 RN CVOR CPT-JTINJ Joint Injection 18:34:50 CDT CPT-18812 Knee 3V 12:25:09 CDT CPT-57873 Venipuncture Draw Fee 12:15:57 CDT CPT-060 Medical Surveillance Exam 21:31:43 CDT 2011 CPT-78542 Venipuncture Draw Fee 08:32:05 RN CVOR CPT-OV Office Visit 18:19:06 CDT
--- OUTSIDE RECORDS SUMMARY | 2020-01-18 11:43 | XMS REPORT | Clinical Summary ---
Author Author Admin, Mitch Leon Organization [facility] [place] Address Unknown Phone Unavailable Allergies, Adverse Reactions, [...] Coronary atherosclerosis of unspecified type of vessel, [place] or graft EDEMA 782.3 Resolved Mitch Urbina [...] 1 tablet by mouth daily AMLODIPINE BESYLATE 93596728158 No Longer Active Joe Williamson APRN Active MITIGARE 0.6 MG ORAL CAPS 2 capsules at onset of gout pain, then take one capsule at 1 hour if symptoms persist. COLCHICINE 59 910577380 Active Mitch Urbina DO Active COUMADIN 1 MG TAB 2 tabs orally daily with the 5mg tab to equal 7mg daily WARFARIN SODIUM 72197521128 Active Mitch Urbina DO Active COLCRYS 0.6 MG TABS 1 tab qid prn gout COLCHICINE 11903408229 Active Norma Cazares Active INVOKANA 100 MG ORAL TABS 1 tablet orally daily CANAGLIFLOZIN 86655028346 Active Brenda Gaymerman Active MINOXIDIL 2.5 MG TABS 1 tablet daily for high blood pressure 10/23 MINOXIDIL 44830870554 Active Ana Wallace Active MECLIZINE HCL 25 MG TAB 1 po tid 3 days, then 1/2 tab tid 3 days MECLIZINE HCL 75732834825 No Longer Active Corey SEGURA Active ALLOPURINOL 300 MG TABS Take 1 tablet by mouth daily 2 ALLOPURINOL 83717353895 No Longer Active Corey SEGURA Activ e CLONIDINE HCL 0.1 MG TABS 1 po bid 7 days, then 1/2 tab po b id 7 days CLONIDINE HCL 53858546729 No Longer Active Corey SEGURA Active COUMADIN 5 MG TABS 1 tab PO daily WARFARIN SODIUM 92533687693 Active Mitch Urbina DO Active COUMADIN 4 MG TABS 1 tablet daily WARFARIN SODI UM 40291072157 No Longer Active Corey SEGURA Active POLYTRIM 42801-5.1 UNIT/ML-% SOLN 1 drop in affected e ye every 3 hours while awake x 7 days POLYMYXIN B-TRIMETHOPRIM 57391675875 N o Longer Active Corey SEGURA Active LOSARTAN POTASSIUM-HCTZ 100-12.5 MG TABS 1 by mouth [place] for high blood pressure LOSARTAN POTASSIUM-HCTZ 88626362241 Active Stephy Urbina DO Active LISINOPRIL-HYDROCHLOROTHIAZIDE 20-12.5 MG TABS 1 tab by mouth da rocky LISINOPRIL-HYDROCHLOROTHIAZIDE 18128467233 No Longer Active Mitch luis DO Active LISINOPRIL 20 MG TABS 1 tab po at HS LISINOPRIL 68861814816 No Longer Active Mitch Urbina DO Active COUMADIN 5 MG TABS 1 by mouth every other day WARFARIN SODIUM 91478559981 No Longer Active Mitch Urbina DO Active COUMADIN 6 MG TABS 1 by mouth every other day WARFARIN SODIUM 54140786587 No Longer Active Mitch Urbina DO Active SIMVASTATIN 40 MG TABS 1 tab daily at bedtime S IMVASTATIN 04360615796 Active Mitch Urbina DO Active SIMVASTATIN 20 MG TABS 1 tab daily at bedtime S IMVASTATIN 31384303833 No Longer Active Mitch Urbina DO Active LOVENOX 100 MG/ML SC SOLN One injection twice a day 09/15/15 ENOXAPARIN SODIUM 24377316184 No Longer Active Carmine Navarrete ctive JANUVIA 50 MG TABS Take one by mouth daily DIEGO GLIPTIN PHOSPHATE 31948354089 Active Mitch Urbina DO Active JANUVIA 100 MG TABS 1/2 by mouth every day DIEGO GLIPTIN PHOSPHATE 88214443497 No Longer Active Bijal Segal RN Active METFORMIN HCL 500 MG TABS 2 by mouth twice daily METFORMIN HCL 71027508884 Active Mitch Urbina DO Active GLIMEPIRIDE 4 MG TABS 1 tab po bid GLIMEPIRIDE 524926 49503 Active Mitch Urbina DO Active COLCRYS 0.6 MG TABS 1 po q 6 hours prn gout pain 03/02 COLCHICINE 32123909032 No Longer Active Camila Reese Active LISINOPRIL 5 MG TABS 1 by mouth every day LISIN OPRIL 04339969580 No Longer Active Nguyen Perez Active KLOR-CON 20 MEQ PACK Take one by mouth daily 8 POTASSIUM CHLORIDE 41551398022 No Longer Active Nguyen Perez Active FUROSEMIDE 40 MG TABS 1 by mouth daily FUROSEMI DE 55766171669 No Longer Active Nguyen Perez Active PROVIGIL 200 MG TABS 1/2 tab po q day MODAFINIL 92602 435226 Active Kathie Juan RPT,RMA Active PROVIGIL 100 MG TABS Take one by mouth daily MO DAFINIL 86525574851 No Longer Active Mitch Urbina DO Active BACTRIM DS 800-160 MG TAB 1 tab by mouth twice daily 2 TRIMETHOPRIM-SULFAMETHOXAZOLE 03001794697 No Longer Active Renan Hays MD Active FAMOTIDINE 20 MG TABS by mouth twice a day FAMOTI DINE 58239073963 Active Mitch Urbina DO Active ADULT ASPIRIN LOW STRENGTH 81 MG TBDP 1 by mouth every daily ASPIRIN 46212340413 Active Mitch Urbina DO Active METOPROLOL TARTRATE 50 MG TABS 1 by mouth twice daily METOPROLOL TARTRATE 00542661668 Active Mitch Urbina DO Active BACTRIM DS 800-160 MG TAB 1 tab by mouth twice daily 2 BACTRIM DS 800-160 MG TAB 639807 TRIMETHOPRIM-SULFAMETHOXAZOLE Inac tive PROVIGIL 100 MG TABS Take one by mouth daily 4 PROVIGIL 100 MG TABS 623181 MODAFINIL Inactive FUROSEMIDE 40 MG TABS 1 by mouth daily FU ROSEMIDE 40 MG TABS 637298 FUROSEMIDE Inactive KLOR-CON 20 MEQ PACK Take one by mouth daily 8 KLOR-CON 20 MEQ PACK 489115 POTASSIUM CHLORIDE Inactive LISINOPRIL 5 MG TABS 1 by mouth every day LISINOPRIL 5 MG TABS 374999 LISINOPRIL Inactive COLCRYS 0.6 MG TABS 1 po q 6 hours prn gout pain 03/02 COLCRYS 0.6 MG TABS 054671 COLCHICINE Inactive JANUVIA 100 MG TABS 1/2 by mouth every day JANUVI A 100 MG TABS SITAGLIPTIN PHOSPHATE Inactive SIMVASTATIN 20 MG TABS 1 tab daily at bedtime SIMVASTATIN 20 MG TABS 314228 SIMVASTATIN Inactive COUMADIN 6 MG TABS 1 by mouth every other day COUMADIN 6 MG TABS 558428 WARFARIN SODIUM Inactive COUMADIN 5 MG TABS 1 by mouth every other day COUMADIN 5 MG TABS 250252 WARFARIN SODIUM Inactive LISINOPRIL 20 MG TABS 1 tab po at HS KOKI NOPRIL 20 MG TABS 703063 LISINOPRIL Inactive LISINOPRIL-HYDROCHLOROTHIAZIDE 20-12.5 MG TABS 1 tab by mouth da rocky LISINOPRIL-HYDROCHLOROTHIAZIDE 20-12.5 MG TABS 644302 LISINOPRIL-HYDROCHLOROTHIAZIDE Inactive POLYTRIM 13816-1.1 UNIT/ML-% SOLN 1 drop in affected e ye every 3 hours while awake x 7 days POLYTRIM 75020-7.1 UNIT/ML-% SOLN 07305 7 POLYMYXIN B-TRIMETHOPRIM Inactive COUMADIN 4 MG TABS 1 tablet daily COUMADIN 4 MG TABS 234642 WARFARIN SODIUM Inactive CLONIDINE HCL 0.1 MG TABS 1 po bid 7 days, then 1/2 tab po b id 7 days CLONIDINE HCL 0.1 MG TABS 905006 CLONIDINE HCL I nactive ALLOPURINOL 300 MG TABS Take 1 tablet by mouth daily 2 ALLOPURINOL 300 MG TABS 983668 ALLOPURINOL Inactive MECLIZINE HCL 25 MG TAB 1 po tid 3 days, then 1/2 tab tid 3 days MECLIZINE HCL 25 MG TAB 192968 MECLIZINE HCL Inactive AMLODIPINE BESYLATE 5 MG TABS 1 tablet by mouth daily AMLODIPINE BESYLATE 5 MG TABS 974658 AMLODIPINE BESYLATE Inactive LOVENOX 100 MG/ML SC SOLN One injection twice a day 09/15/15 LOVENOX 100 MG/ML SC SOLN 704840 ENOXAPARIN SODIUM Inactive Vital Signs Date Name [...] Range Description Chart Maintenance: hemoccult added to [facility] - Chemistry occult blood, stool (E&M) Positive Lab Report: HGBA1C - Chemistry hemoglobin A1C, blood, as % of total hemoglobin 6.6 % 4.3-6.0 Lab Report: Lipid Panel, HEPATIC PANEL, MICROALB/CREAT W/RATIO, HGBA1C, CBC - Chemistry cholesterol, serum 136 mg/dL 023-842 5526/08/09 triglyceride, serum, fasting 187 mg/dL 30-200 HDL [...] ratio (INR) 2.7 1.0-3.5 prothrombin time (patient) 15.8 SECS s 11.1-13.4 international normalized ratio (INR) 1.8 1.0-3.5 Encounters Code Encounter Date Provider Facility CPT-55236 Level 3 Est. Patient 15:10:14 CDT Joe kamara [facility] CPT-66603 Level 3 Est. Patient 15:03:46 CDT Joe kamara [facility] CPT-75853 Level 3 Est. Patient 14:21:06 CDT Mitch luis [facility] CPT-56124 Level 3 Est. Patient 14:52:06 CDT Joe kamara [facility] CPT-11672 Level 3 Est. 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 Patient 09:37:15 CDT Mitch luis [facility] CPT-89420 Level 3 Est. Patient 17:01:00 WET CROWN BLOCKING OPERATOR Mitch luis [facility] CPT-16642 Level 3 Est. 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 Patient 13:25:53 WET CROWN BLOCKING OPERATOR Tavo toure MD [facility] CPT-63008 Level 3 Est. Patient 18:17:28 CDT Mitch luis [facility] CPT-80813 Level 3 Est. Patient 15:22:57 CDT Mitch Arnol luis DO [facility] CPT-35380 Level 3 Est. Patient 18:21:50 CDT Mitch W L janelle [facility] CPT-56750 Level 3 Est. Patient 18:20:38 CDT Mitch Arnol luis [facility] CPT-21725 Level 3 Est. Patient 15:37:55 CDT Mitch Arnol luis [facility] CPT-08090 Level 2 Est. Patient 15:54:44 CDT Carmine benton MD [facility] CPT-26324 Level 3 Est. 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 Patient 22:15:50 CDT Micth Arnol luis [facility] CPT-55017 Level 3 Est. Patient 10:48:15 CDT Mitch luis [facility] CPT-83732 Level 3 Est. Patient 23:20:57 CDT Tavo toure MD [facility] CPT-20351 Level 3 Est. Patient 16:26:13 CDT Mitch Castellano janelle [facility] Procedures Code Procedure Name Date Entry Date Standard Desc ription CPT-13981 PT/INR - LAB USE ONLY 13:32:49 WET CROWN BLOCKING OPERATOR CPT-24477 Venipuncture Draw Fee 13:32:49 WET CROWN BLOCKING OPERATOR CPT-57539 PT/INR - LAB USE ONLY 10:34:49 WET CROWN BLOCKING OPERATOR CPT-49671 Venipuncture Draw Fee 10:34:48 WET CROWN BLOCKING OPERATOR CPT-21803 PT/INR - LAB USE ONLY 09:22:03 WET CROWN BLOCKING OPERATOR CPT-33806 Venipuncture Draw Fee 09:22:02 WET CROWN BLOCKING OPERATOR CPT-86551 Hemoccult IFOBT - LAB USE ONLY 10:27:22 CDT CPT-37628 Venipuncture Draw Fee 08:27:08 CDT CPT-14254 Liver Profile - LAB USE ONLY 08:27:07 CDT 2 CPT-13207 Microalbumin - LAB USE ONLY 08:27:07 CDT 20 25/05/09 CPT-15633 PT/INR - LAB USE ONLY 08:27:07 CDT CPT-74123 HGBA1C - LAB USE ONLY 08:27:07 CDT CPT-35636 CBC - LAB USE ONLY 08:27:07 CDT CPT-50708 Venipuncture Draw Fee 11:09:14 CDT CPT-43107 Venipuncture Draw Fee 08:32:21 WET CROWN BLOCKING OPERATOR CPT-03619 Venipuncture Draw Fee 09:38:56 WET CROWN BLOCKING OPERATOR CPT-72690 No Charge Offi Visit 21:36:07 CDT 1 CPT-98660 Venipuncture Draw Fee 10:13:28 WET CROWN BLOCKING OPERATOR CPT-99781 Venipuncture Draw Fee 08:31:11 CDT CPT-65791 Aspir/Inject Med Joint 18:17:28 CDT CPT-22451 Venipuncture Draw Fee 10:13:30 CDT CPT-58547 Venipuncture Draw Fee 08:31:43 WET CROWN BLOCKING OPERATOR CPT-JTINJ Joint Injection 18:34:50 CDT CPT-59794 Knee 3V 12:25:09 CDT CPT-65927 Venipuncture Draw Fee 12:15:57 CDT CPT-060 Medical Surveillance Exam 21:31:43 CDT 2011 CPT-15360 Venipuncture Draw Fee 08:32:05 WET CROWN BLOCKING OPERATOR CPT-OV Office Visit 18:19:06 CDT
[2020-01-18] MEDS ORDERED: LACTATED RINGERS 1,000 ML IV PRN (11:44)
--- OUTSIDE RECORDS SUMMARY | 2020-01-18 11:44 | XMS REPORT | Clinical Summary ---
Author Author Admin, Mitch Leon Organization [facility] [employer] Address Unknown Phone Unavailable Allergies, Adverse Reactions, [...] Coronary atherosclerosis of unspecified type of vessel, pamunkey or graft EDEMA 782.3 Resolved Mitch Urbina [...] Instructions Start Date Stop Date Generic Name [facility] Status Provider Patient Instruction GLIMEPIRIDE 4 MG ORAL TABLET 1 tablet by mouth twice daily f or diabetes GLIMEPIRIDE 86616014209 Active Mitch Urbina DO Active GLIMEPIRIDE 2 MG ORAL TABLET 1 po BID GLIMEPI RIDE 76821797851 No Longer Active Mitch Urbina DO Active AMLODIPINE BESYLATE 5 MG ORAL TABLET 1 tablet by mouth daily AMLODIPINE BESYLATE 84007562226 Active Mitch Urbina DO Active PROVIGIL 200 MG ORAL TABLET 1/2 tab po q day MODA FINIL 31802551449 Active Renee Oconnor LPN Active FAMOTIDINE 20 MG ORAL TABLET by mouth twice a day 2017 FAMOTIDINE 00638419460 No Longer Active Mitch Urbina DO Active COLCRYS 0.6 MG ORAL TABLET 1 tab qid prn gout C OLCHICINE 97818675672 No Longer Active Mitch Urbina DO Active KEFLEX 500 MG ORAL CAPSULE 1 po qid CEPHALEXI N 36589635341 No Longer Active Mitch Urbina DO Active LOSARTAN POTASSIUM 100 MG ORAL TABLET 1 pill by mouth daily, for blood pressure LOSARTAN POTASSIUM 62036418590 Active Ana Ocampo Active AMLODIPINE BESYLATE 5 MG ORAL TABLET 1 tablet by mouth daily 201 01/20/04 AMLODIPINE BESYLATE 50488597239 No Longer Active Joe fulton APRN Active MITIGARE 0.6 MG ORAL CAPSULE 2 capsules at onset of go ut pain, then take one capsule at 1 hour if symptoms persist. 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 Active MECLIZINE HCL 25 MG ORAL TABLET 1 po tid 3 days, then 1/2 ta b tid 3 days MECLIZINE HCL 00392247071 No Longer Active Corey SEGURA Active ALLOPURINOL 300 MG ORAL TABLET Take 1 tablet by mouth daily 2012 ALLOPURINOL 35153484203 No Longer Active Corey SEGURA Active CLONIDINE HCL 0.1 MG ORAL TABLET 1 po bid 7 days, then 1/2 t ab po bid 7 days CLONIDINE HCL 72797241660 No Longer Active Corey SEGURA Active COUMADIN 5 MG ORAL TABLET 1 tab PO daily WARFAR IN SODIUM 06822757458 Active Renee Elvin [place] Active COUMADIN 4 MG ORAL TABLET 1 tablet daily WARFAR IN SODIUM 79088420613 No Longer Active Corey SEGURA Active POLYTRIM 42923-7.1 UNIT/ML-% OPHTHALMIC SOLUTION 1 rui p in affected eye every 3 hours while awake x 7 days POLYMYXIN B-TRIMETHOP RIM 07878184293 No Longer Active Corey SEGURA Active LOSARTAN POTASSIUM-HCTZ 100-12.5 MG ORAL TABLET 1 by m outh daily for high blood pressure LOSARTAN POTASSIUM-HCTZ 70777107828 No Longer A ctive Mitch Urbina DO Active LISINOPRIL-HYDROCHLOROTHIAZIDE 20-12.5 MG ORAL TABLET 1 tab by m outh daily LISINOPRIL-HYDROCHLOROTHIAZIDE 28660380626 No Longer Active Mitch Urbina DO Active LISINOPRIL 20 MG ORAL TABLET 1 tab po at HS LIS INOPRIL 19458533262 No Longer Active Mitch Urbina DO Active COUMADIN 5 MG ORAL TABLET 1 by mouth every other day 2 WARFARIN SODIUM 11543745315 No Longer Active Mitch Urbina DO Active COUMADIN 6 MG ORAL TABLET 1 by mouth every other day 2 WARFARIN SODIUM 06393660572 No Longer Active Mitch Urbina DO Active SIMVASTATIN 40 MG ORAL TABLET 1 tab daily at bedtime SIMVASTATIN 62477465333 Active Mitch Urbina DO Active SIMVASTATIN 20 MG ORAL TABLET 1 tab daily at bedtime 2 SIMVASTATIN 02045855062 No Longer Active Mitch Urbina DO Active LOVENOX 100 MG/ML SUBCUTANEOUS SOLUTION One injection twice a da y ENOXAPARIN SODIUM 28970275441 No Longer Active Carmine Yusuf MD Active JANUVIA 50 MG ORAL TABLET Take one by mouth daily SITAGLIPTIN PHOSPHATE 84674761880 Active Renee Oconnoreder DE [place] ROSA Active JANUVIA 100 MG ORAL TABLET 1/2 by mouth every day 2011 SITAGLIPTIN PHOSPHATE 74181727647 No Longer Active Bjial Segal RN Acti ve METFORMIN HCL 500 MG ORAL TABLET 2 by mouth twice daily METFORMIN HCL 08107813494 No Longer Active Renee Oconnor LPN Active COLCRYS 0.6 MG ORAL TABLET 1 po q 6 hours prn gout pain COLCHICINE 83719086780 No Longer Active Camila Reese Active LISINOPRIL 5 MG ORAL TABLET 1 by mouth every day 11/17 LISINOPRIL 53935768170 No Longer Active Nguyen Perez Active KLOR-CON 20 MEQ ORAL PACKET Take one by mouth daily 09/10/08 POTASSIUM CHLORIDE 45745389317 No Longer Active Nguyenmolly Perez Active FUROSEMIDE 40 MG ORAL TABLET 1 by mouth daily F UROSEMIDE 16652641415 No Longer Active Nguyen Ana Active PROVIGIL 100 MG ORAL TABLET Take one by mouth daily 08/20/04 MODAFINIL 84899967241 No Longer Active Mitch Ubrina DO Active BACTRIM DS 800-160 MG ORAL TABLET 1 tab by mouth twice daily 201 10/19/09 TRIMETHOPRIM-SULFAMETHOXAZOLE 16481515313 No Longer Active Elian Hays MD Active ADULT ASPIRIN LOW STRENGTH 81 MG ORAL TABLET DISINTEGR ATING 1 by mouth every daily ASPIRIN 27147743285 Active Mitch Urbina DO Ac tive METOPROLOL TARTRATE 50 MG ORAL TABLET 1 by mouth twice daily METOPROLOL TARTRATE 79893747044 Active Anabella Ocampo Activ e BACTRIM DS 800-160 MG ORAL TABLET 1 tab by mouth twice daily 201 10/19/09 BACTRIM DS 800-160 MG ORAL TABLET 396120 TRIMETHOPRIM-SULFAMETHOXAZOLE Inactive PROVIGIL 100 MG ORAL TABLET Take one by mouth daily 08/20/04 PROVIGIL 100 MG ORAL TABLET 542873 MODAFINIL Inactive FUROSEMIDE 40 MG ORAL TABLET 1 by mouth daily FUROSEMIDE 40 MG ORAL TABLET 561699 FUROSEMIDE Inactive KLOR-CON 20 MEQ ORAL PACKET Take one by mouth daily 09/10/08 KLOR- CON 20 MEQ ORAL PACKET 5271326 POTASSIUM CHLORIDE Inactive LISINOPRIL 5 MG ORAL TABLET 1 by mouth every day 11/17 LISINOPRIL 5 MG ORAL TABLET 571887 LISINOPRIL Inactive COLCRYS 0.6 MG ORAL TABLET 1 po q 6 hours prn gout pain COLCRYS 0.6 MG ORAL TABLET 606276 COLCHICINE Inactive JANUVIA 100 MG ORAL TABLET 1/2 by mouth every day 2011 JANUVIA 100 MG ORAL TABLET SITAGLIPTIN PHOSPHATE Inactive SIMVASTATIN 20 MG ORAL TABLET 1 tab daily at bedtime 2 SIMVASTATIN 20 MG ORAL TABLET 959057 SIMVASTATIN Inactive COUMADIN 6 MG ORAL TABLET 1 by mouth every other day 2 COUMADIN 6 MG ORAL TABLET 628027 WARFARIN SODIUM Inactive COUMADIN 5 MG ORAL TABLET 1 by mouth every other day 2 COUMADIN 5 MG ORAL TABLET 506639 WARFARIN SODIUM Inactive LISINOPRIL 20 MG ORAL TABLET 1 tab po at HS LISINOPRIL 20 MG ORAL TABLET 095015 LISINOPRIL Inactive LISINOPRIL-HYDROCHLOROTHIAZIDE 20-12.5 MG ORAL TABLET 1 tab by m outh daily LISINOPRIL-HYDROCHLOROTHIAZIDE 20-12.5 MG ORAL TABLET 223004 LISINOPRIL-HYDROCHLOROTHIAZIDE Inactive POLYTRIM 00826-7.1 UNIT/ML-% OPHTHALMIC SOLUTION 1 rui p in affected eye every 3 hours while awake x 7 days POLYTRIM 1000 0-0.1 UNIT/ML-% OPHTHALMIC SOLUTION 135199 POLYMYXIN B-TRIMETHOPRIM Inactive COUMADIN 4 MG ORAL TABLET 1 tablet daily COUMADIN 4 MG ORAL TABLET 172195 WARFARIN SODIUM Inactive CLONIDINE HCL 0.1 MG ORAL TABLET 1 po bid 7 days, then 1/2 t ab po bid 7 days CLONIDINE HCL 0.1 MG ORAL TABLET 683413 CLONIDIN E HCL Inactive ALLOPURINOL 300 MG ORAL TABLET Take 1 tablet by mouth daily 2012 ALLOPURINOL 300 MG ORAL TABLET 915785 ALLOPURINOL I nactive MECLIZINE HCL 25 MG ORAL TABLET 1 po tid 3 days, then 1/2 ta b tid 3 days MECLIZINE HCL 25 MG ORAL TABLET 628068 MECLIZINE HCL Inactive AMLODIPINE BESYLATE 5 MG ORAL TABLET 1 tablet by mouth daily 201 01/20/04 AMLODIPINE BESYLATE 5 MG ORAL TABLET 312729 AMLODIPINE BESYLATE Inactive KEFLEX 500 MG ORAL CAPSULE 1 po qid K EFLEX 500 MG ORAL CAPSULE 678181 CEPHALEXIN Inactive COLCRYS 0.6 MG ORAL TABLET 1 tab qid prn gout COLCRYS 0.6 MG ORAL TABLET 116821 COLCHICINE Inactive FAMOTIDINE 20 MG ORAL TABLET by mouth twice a day 2017 FAMOTIDINE 20 MG ORAL TABLET 772631 FAMOTIDINE Inactive GLIMEPIRIDE 2 MG ORAL TABLET 1 po BID GLIMEPIRIDE 2 MG ORAL TABLET 391086 GLIMEPIRIDE Inactive LOVENOX 100 MG/ML SUBCUTANEOUS SOLUTION One injection twice a da y LOVENOX 100 MG/ML SUBCUTANEOUS SOLUTION 349769 ENOXAPAR IN SODIUM Inactive Vital Signs Date [...] 4.3-6.0 Encounters Code Encounter Date Provider Facility CPT-31984 [id number] Vst-Est Level IV 10:52:00 INSTRUMENTATION ENGINEERING TECHNICIAN Stephy Urbina [facility] CPT-69121 Level 3 Est. Patient 18:25:53 CDT Mitch luis [facility] CPT-28176 Level 3 Est. Patient 19:43:34 CDT Mitch luis [facility] CPT-42893 Level 4 Est. Patient 09:30:18 CDT Mitch luis [facility] CPT-56955 Level 3 Est. Patient 15:10:14 CDT Joe kamara [facility] CPT-05913 Level 3 Est. Patient 15:03:46 CDT Joe kamara [facility] CPT-58842 Level 3 Est. Patient 14:21:06 CDT Mitch luis [facility] CPT-68180 Level 3 Est. Patient 14:52:06 CDT Joe kamara [facility] CPT-93511 Level 3 Est. Patient 09:34:30 INSTRUMENTATION ENGINEERING TECHNICIAN Mitch luis [facility] CPT-20719 Level 3 Est. Patient 09:37:15 CDT Mitch luis [facility] CPT-64790 Level 3 Est. Patient 17:01:00 INSTRUMENTATION ENGINEERING TECHNICIAN Mitch luis [facility] CPT-93218 Level 3 Est. Patient 13:53:19 INSTRUMENTATION ENGINEERING TECHNICIAN Mitch luis [facility] CPT-60339 Level 3 Est. Patient 19:19:37 INSTRUMENTATION ENGINEERING TECHNICIAN Mitch luis [facility] CPT-52661 Level 3 Est. Patient 13:25:53 INSTRUMENTATION ENGINEERING TECHNICIAN Tavo toure MD [facility] CPT-76703 Level 3 Est. Patient 18:17:28 CDT Mitch Arnol luis [facility] CPT-55986 Level 3 Est. Patient 15:22:57 CDT Mitch Arnol luis [facility] CPT-50383 Level 3 Est. Patient 18:21:50 CDT Mitch luis [facility] CPT-98371 Level 3 Est. Patient 18:20:38 CDT Mitch Arnol luis [facility] CPT-39731 Level 3 Est. Patient 15:37:55 CDT Mitch luis [facility] CPT-90036 Level 2 Est. Patient 15:54:44 CDT Carmine benton MD [facility] CPT-69390 Level 3 Est. Patient 21:46:01 INSTRUMENTATION ENGINEERING TECHNICIAN Mitch luis [facility] CPT-42881 Level 3 Est. Patient 22:15:50 CDT Mitch luis [facility] CPT-58316 Level 3 Est. Patient 10:48:15 CDT Mitch luis [facility] CPT-51811 Level 3 Est. Patient 23:20:57 CDT Tavo toure MD [facility] CPT-06049 Level 3 Est. Patient 16:26:13 CDT Mitch Castellano janelle [facility] Procedures Code Procedure Name Date Entry Date Standard Desc ription CPT-JTINJ Asp/Joint Injection 18:47:02 CDT CPT-47265 Venipuncture Draw Fee 09:26:17 CDT CPT-65951 PT/INR - LAB USE ONLY 13:32:49 INSTRUMENTATION ENGINEERING TECHNICIAN CPT-42111 Venipuncture Draw Fee 13:32:49 INSTRUMENTATION ENGINEERING TECHNICIAN CPT-33443 PT/INR - LAB USE ONLY 10:34:49 INSTRUMENTATION ENGINEERING TECHNICIAN CPT-31881 Venipuncture Draw Fee 10:34:48 INSTRUMENTATION ENGINEERING TECHNICIAN CPT-26067 PT/INR - LAB USE ONLY 09:22:03 INSTRUMENTATION ENGINEERING TECHNICIAN CPT-72152 Venipuncture Draw Fee 09:22:02 INSTRUMENTATION ENGINEERING TECHNICIAN CPT-01267 Hemoccult IFOBT - LAB USE ONLY 10:27:22 CDT CPT-10075 Venipuncture Draw Fee 08:27:08 CDT CPT-45315 Liver Profile - LAB USE ONLY 08:27:07 CDT 2 CPT-25119 Microalbumin - LAB USE ONLY 08:27:07 CDT 20 25/05/09 CPT-38553 PT/INR - LAB USE ONLY 08:27:07 CDT CPT-09118 HGBA1C - LAB USE ONLY 08:27:07 CDT CPT-50097 CBC - LAB USE ONLY 08:27:07 CDT CPT-50850 Venipuncture Draw Fee 11:09:14 CDT CPT-40515 Venipuncture Draw Fee 08:32:21 INSTRUMENTATION ENGINEERING TECHNICIAN CPT-44778 Venipuncture Draw Fee 09:38:56 INSTRUMENTATION ENGINEERING TECHNICIAN CPT-69546 No Charge Offi Visit 21:36:07 CDT 1 CPT-45780 Venipuncture Draw Fee 10:13:28 INSTRUMENTATION ENGINEERING TECHNICIAN CPT-19190 Venipuncture Draw Fee 08:31:11 CDT CPT-92764 Aspir/Inject Med Joint 18:17:28 CDT CPT-42531 Venipuncture Draw Fee 10:13:30 CDT CPT-19990 Venipuncture Draw Fee 08:31:43 INSTRUMENTATION ENGINEERING TECHNICIAN CPT-JTINJ Joint Injection 18:34:50 CDT CPT-67847 Knee 3V 12:25:09 CDT CPT-32755 Venipuncture Draw Fee 12:15:57 CDT CPT-060 Medical Surveillance Exam 21:31:43 CDT 2011 CPT-44209 Venipuncture Draw Fee 08:32:05 INSTRUMENTATION ENGINEERING TECHNICIAN CPT-OV Office Visit 18:19:06 CDT
--- OUTSIDE RECORDS SUMMARY | 2020-01-18 11:44 | XMS REPORT | Clinical Summary ---
Author Author Admin, Mitch Leon Organization [facility] Address Unknown Phone Unavailable Allergies, Adverse Reactions, [...] Coronary atherosclerosis of unspecified type of vessel, [place] or graft EDEMA 782.3 Resolved Mitch Urbina [...] Instructions Start Date Stop Date Generic Name [facility] Status Provider Patient Instruction GLIMEPIRIDE 4 MG ORAL TABLET 1 tablet by mouth twice daily f or diabetes GLIMEPIRIDE 13703624882 Active Mitch Urbina DO Active GLIMEPIRIDE 2 MG ORAL TABLET 1 po BID GLIMEPI RIDE 02096908216 No Longer Active Mitch Urbina DO Active AMLODIPINE BESYLATE 5 MG ORAL TABLET 1 tablet by mouth daily AMLODIPINE BESYLATE 27505655109 Active Mitch Urbina DO Active PROVIGIL 200 MG ORAL TABLET 1/2 tab po q day MODA FINIL 93235882858 Active Renee Oconnor LPN Active FAMOTIDINE 20 MG ORAL TABLET by mouth twice a day 2017 FAMOTIDINE 90886360010 No Longer Active Mitch Urbina DO Active COLCRYS 0.6 MG ORAL TABLET 1 tab qid prn gout C OLCHICINE 17025632894 No Longer Active Mitch Urbina DO Active KEFLEX 500 MG ORAL CAPSULE 1 po qid CEPHALEXI N 38915857376 No Longer Active Mitch Urbina DO Active LOSARTAN POTASSIUM 100 MG ORAL TABLET 1 pill by mouth daily, for blood pressure LOSARTAN POTASSIUM 83255442833 Active Ana Ocampo Active AMLODIPINE BESYLATE 5 MG ORAL TABLET 1 tablet by mouth daily 201 01/20/04 AMLODIPINE BESYLATE 85759773510 No Longer Active Joe fulton APRN Active MITIGARE 0.6 MG ORAL CAPSULE 2 capsules at onset of go ut pain, then take one capsule at 1 hour if symptoms persist. COLCHICINE 59 958601171 Active Mitch Urbina Active COUMADIN 1 MG ORAL TABLET 2 tabs orally daily with the 5mg tab to equal 7mg daily WARFARIN SODIUM 38633558753 Active Renee Oconnor LPN Active INVOKANA 100 MG ORAL TABLET 1 tablet orally daily CANAGLIFLOZIN 41563997401 Active Renee Quirogamonserrat DE [place] ROSA Active MINOXIDIL 2.5 MG ORAL TABLET 1 tablet daily for high blood press ure MINOXIDIL 86617598701 Active Renee Oconnor [employer] Active MECLIZINE HCL 25 MG ORAL TABLET 1 po tid 3 days, then 1/2 ta b tid 3 days MECLIZINE HCL 87806349630 No Longer Active Corey SEGURA Active ALLOPURINOL 300 MG ORAL TABLET Take 1 tablet by mouth daily 2012 ALLOPURINOL 67960710196 No Longer Active Corey SEGURA Active CLONIDINE HCL 0.1 MG ORAL TABLET 1 po bid 7 days, then 1/2 t ab po bid 7 days CLONIDINE HCL 21934041183 No Longer Active Corey SEGURA Active COUMADIN 5 MG ORAL TABLET 1 tab PO daily WARFAR IN SODIUM 14332467169 Active Renee Elvin DE LA ROSA Active COUMADIN 4 MG ORAL TABLET 1 tablet daily WARFAR IN SODIUM 92438225934 No Longer Active Corey SEGURA Active POLYTRIM 29481-2.1 UNIT/ML-% OPHTHALMIC SOLUTION 1 rui p in affected eye every 3 hours while awake x 7 days POLYMYXIN B-TRIMETHOP RIM 91814788438 No Longer Active Corey SEGURA Active LOSARTAN POTASSIUM-HCTZ 100-12.5 MG ORAL TABLET 1 by m outh daily for high blood pressure LOSARTAN POTASSIUM-HCTZ 91636604574 No Longer A ctive Mitch Urbina DO Active LISINOPRIL-HYDROCHLOROTHIAZIDE 20-12.5 MG ORAL TABLET 1 tab by m outh daily LISINOPRIL-HYDROCHLOROTHIAZIDE 78868214186 No Longer Active Mitch Urbina DO Active LISINOPRIL 20 MG ORAL TABLET 1 tab po at HS LIS INOPRIL 34551346909 No Longer Active Mitch Urbina DO Active COUMADIN 5 MG ORAL TABLET 1 by mouth every other day 2 WARFARIN SODIUM 40779773730 No Longer Active Mitch Urbina DO Active COUMADIN 6 MG ORAL TABLET 1 by mouth every other day 2 WARFARIN SODIUM 12013241597 No Longer Active Mitch Urbina DO Active SIMVASTATIN 40 MG ORAL TABLET 1 tab daily at bedtime SIMVASTATIN 51002908658 Active Mitch Urbina DO Active SIMVASTATIN 20 MG ORAL TABLET 1 tab daily at bedtime 2 SIMVASTATIN 39931671409 No Longer Active Mitch Urbina DO Active LOVENOX 100 MG/ML SUBCUTANEOUS SOLUTION One injection twice a da y ENOXAPARIN SODIUM 19020887630 No Longer Active Carmine Yusuf MD Active JANUVIA 50 MG ORAL TABLET Take one by mouth daily SITAGLIPTIN PHOSPHATE 75228949709 Active Renee Oconnoreder DE LA ROSA Active JANUVIA 100 MG ORAL TABLET 1/2 by mouth every day 2011 SITAGLIPTIN PHOSPHATE 82357638636 No Longer Active Bijal Segal RN Acti ve METFORMIN HCL 500 MG ORAL TABLET 2 by mouth twice daily METFORMIN HCL 47552375387 No Longer Active Renee Oconnor LPN Active COLCRYS 0.6 MG ORAL TABLET 1 po q 6 hours prn gout pain COLCHICINE 28673480238 No Longer Active Camila Reese Active LISINOPRIL 5 MG ORAL TABLET 1 by mouth every day 11/17 LISINOPRIL 42386644341 No Longer Active Nguyen Perez Active KLOR-CON 20 MEQ ORAL PACKET Take one by mouth daily 09/10/08 POTASSIUM CHLORIDE 18501355832 No Longer Active Nguyenmolly Perez Active FUROSEMIDE 40 MG ORAL TABLET 1 by mouth daily F UROSEMIDE 37681828862 No Longer Active Nguyen Ana Active PROVIGIL 100 MG ORAL TABLET Take one by mouth daily 08/20/04 MODAFINIL 24741614495 No Longer Active Mitch Urbina DO Active BACTRIM DS 800-160 MG ORAL TABLET 1 tab by mouth twice daily 201 10/19/09 TRIMETHOPRIM-SULFAMETHOXAZOLE 20205316597 No Longer Active Elian Hays MD Active ADULT ASPIRIN LOW STRENGTH 81 MG ORAL TABLET DISINTEGR ATING 1 by mouth every daily ASPIRIN 56399630008 Active Mitch Urbina DO Ac tive METOPROLOL TARTRATE 50 MG ORAL TABLET 1 by mouth twice daily METOPROLOL TARTRATE 58043945855 Active Anabella Ocampo Activ e BACTRIM DS 800-160 MG ORAL TABLET 1 tab by mouth twice daily 201 10/19/09 BACTRIM DS 800-160 MG ORAL TABLET 035230 TRIMETHOPRIM-SULFAMETHOXAZOLE Inactive PROVIGIL 100 MG ORAL TABLET Take one by mouth daily 08/20/04 PROVIGIL 100 MG ORAL TABLET 735271 MODAFINIL Inactive FUROSEMIDE 40 MG ORAL TABLET 1 by mouth daily FUROSEMIDE 40 MG ORAL TABLET 664829 FUROSEMIDE Inactive KLOR-CON 20 MEQ ORAL PACKET Take one by mouth daily 09/10/08 KLOR- CON 20 MEQ ORAL PACKET 9761322 POTASSIUM CHLORIDE Inactive LISINOPRIL 5 MG ORAL TABLET 1 by mouth every day 11/17 LISINOPRIL 5 MG ORAL TABLET 895669 LISINOPRIL Inactive COLCRYS 0.6 MG ORAL TABLET 1 po q 6 hours prn gout pain COLCRYS 0.6 MG ORAL TABLET 143104 COLCHICINE Inactive JANUVIA 100 MG ORAL TABLET 1/2 by mouth every day 2011 JANUVIA 100 MG ORAL TABLET SITAGLIPTIN PHOSPHATE Inactive SIMVASTATIN 20 MG ORAL TABLET 1 tab daily at bedtime 2 SIMVASTATIN 20 MG ORAL TABLET 106295 SIMVASTATIN Inactive COUMADIN 6 MG ORAL TABLET 1 by mouth every other day 2 COUMADIN 6 MG ORAL TABLET 538330 WARFARIN SODIUM Inactive COUMADIN 5 MG ORAL TABLET 1 by mouth every other day 2 COUMADIN 5 MG ORAL TABLET 441166 WARFARIN SODIUM Inactive LISINOPRIL 20 MG ORAL TABLET 1 tab po at HS LISINOPRIL 20 MG ORAL TABLET 609705 LISINOPRIL Inactive LISINOPRIL-HYDROCHLOROTHIAZIDE 20-12.5 MG ORAL TABLET 1 tab by m outh daily LISINOPRIL-HYDROCHLOROTHIAZIDE 20-12.5 MG ORAL TABLET 761899 LISINOPRIL-HYDROCHLOROTHIAZIDE Inactive POLYTRIM 98656-0.1 UNIT/ML-% OPHTHALMIC SOLUTION 1 rui p in affected eye every 3 hours while awake x 7 days POLYTRIM 1000 0-0.1 UNIT/ML-% OPHTHALMIC SOLUTION 732029 POLYMYXIN B-TRIMETHOPRIM Inactive COUMADIN 4 MG ORAL TABLET 1 tablet daily COUMADIN 4 MG ORAL TABLET 023570 WARFARIN SODIUM Inactive CLONIDINE HCL 0.1 MG ORAL TABLET 1 po bid 7 days, then 1/2 t ab po bid 7 days CLONIDINE HCL 0.1 MG ORAL TABLET 758930 CLONIDIN E HCL Inactive ALLOPURINOL 300 MG ORAL TABLET Take 1 tablet by mouth daily 2012 ALLOPURINOL 300 MG ORAL TABLET 205881 ALLOPURINOL I nactive MECLIZINE HCL 25 MG ORAL TABLET 1 po tid 3 days, then 1/2 ta b tid 3 days MECLIZINE HCL 25 MG ORAL TABLET 111553 MECLIZINE HCL Inactive AMLODIPINE BESYLATE 5 MG ORAL TABLET 1 tablet by mouth daily 201 01/20/04 AMLODIPINE BESYLATE 5 MG ORAL TABLET 143887 AMLODIPINE BESYLATE Inactive KEFLEX 500 MG ORAL CAPSULE 1 po qid K EFLEX 500 MG ORAL CAPSULE 545392 CEPHALEXIN Inactive COLCRYS 0.6 MG ORAL TABLET 1 tab qid prn gout COLCRYS 0.6 MG ORAL TABLET 793220 COLCHICINE Inactive FAMOTIDINE 20 MG ORAL TABLET by mouth twice a day 2017 FAMOTIDINE 20 MG ORAL TABLET 231331 FAMOTIDINE Inactive GLIMEPIRIDE 2 MG ORAL TABLET 1 po BID GLIMEPIRIDE 2 MG ORAL TABLET 817459 GLIMEPIRIDE Inactive LOVENOX 100 MG/ML SUBCUTANEOUS SOLUTION One injection twice a da y LOVENOX 100 MG/ML SUBCUTANEOUS SOLUTION 274380 ENOXAPAR IN SODIUM Inactive Vital Signs Date [...] 4.3-6.0 Encounters Code Encounter Date Provider Facility CPT-50435 [id number] Vst-Est Level IV 10:52:00 BOW REPAIRER CUSTOM Stephy Urbina [facility] CPT-79665 Level 3 Est. Patient 18:25:53 CDT Mitch luis [facility] CPT-83735 Level 3 Est. Patient 19:43:34 CDT Mitch luis [facility] CPT-83680 Level 4 Est. Patient 09:30:18 CDT Mitch luis [facility] CPT-84709 Level 3 Est. Patient 15:10:14 CDT Joe kamara [facility] CPT-32014 Level 3 Est. Patient 15:03:46 CDT Joe kamara [facility] CPT-05532 Level 3 Est. Patient 14:21:06 CDT Mitch luis [facility] CPT-84924 Level 3 Est. Patient 14:52:06 CDT Joe kamara [facility] CPT-03537 Level 3 Est. Patient 09:34:30 BOW REPAIRER CUSTOM Mitch luis [facility] CPT-53128 Level 3 Est. Patient 09:37:15 CDT Mitch luis [facility] CPT-77060 Level 3 Est. Patient 17:01:00 BOW REPAIRER CUSTOM Mitch luis [facility] CPT-76248 Level 3 Est. Patient 13:53:19 BOW REPAIRER CUSTOM Mitch luis [facility] CPT-01060 Level 3 Est. Patient 19:19:37 BOW REPAIRER CUSTOM Mitch luis [facility] CPT-96604 Level 3 Est. Patient 13:25:53 BOW REPAIRER CUSTOM Tavo toure MD [facility] CPT-26705 Level 3 Est. Patient 18:17:28 CDT Mitch Arnol luis [facility] CPT-38833 Level 3 Est. Patient 15:22:57 CDT Mitch Arnol luis [facility] CPT-20135 Level 3 Est. Patient 18:21:50 CDT Mitch luis [facility] CPT-87138 Level 3 Est. Patient 18:20:38 CDT Mitch Arnol luis [facility] CPT-71529 Level 3 Est. Patient 15:37:55 CDT Mitch luis [facility] CPT-70486 Level 2 Est. Patient 15:54:44 CDT Carmine benton MD [facility] CPT-85277 Level 3 Est. Patient 21:46:01 BOW REPAIRER CUSTOM Mitch luis [facility] CPT-34151 Level 3 Est. Patient 22:15:50 CDT Mitch luis [facility] CPT-32393 Level 3 Est. Patient 10:48:15 CDT Mitch luis [facility] CPT-66487 Level 3 Est. Patient 23:20:57 CDT Tavo toure MD [facility] CPT-37248 Level 3 Est. Patient 16:26:13 CDT Mitch Castellano janelle [facility] Procedures Code Procedure Name Date Entry Date Standard Desc ription CPT-JTINJ Asp/Joint Injection 18:47:02 CDT CPT-95341 Venipuncture Draw Fee 09:26:17 CDT CPT-15933 PT/INR - LAB USE ONLY 13:32:49 BOW REPAIRER CUSTOM CPT-72399 Venipuncture Draw Fee 13:32:49 BOW REPAIRER CUSTOM CPT-10744 PT/INR - LAB USE ONLY 10:34:49 BOW REPAIRER CUSTOM CPT-57266 Venipuncture Draw Fee 10:34:48 BOW REPAIRER CUSTOM CPT-70708 PT/INR - LAB USE ONLY 09:22:03 BOW REPAIRER CUSTOM CPT-09080 Venipuncture Draw Fee 09:22:02 BOW REPAIRER CUSTOM CPT-50270 Hemoccult IFOBT - LAB USE ONLY 10:27:22 CDT CPT-35220 Venipuncture Draw Fee 08:27:08 CDT CPT-66326 Liver Profile - LAB USE ONLY 08:27:07 CDT 2 CPT-10092 Microalbumin - LAB USE ONLY 08:27:07 CDT 20 25/05/09 CPT-72123 PT/INR - LAB USE ONLY 08:27:07 CDT CPT-91691 HGBA1C - LAB USE ONLY 08:27:07 CDT CPT-08810 CBC - LAB USE ONLY 08:27:07 CDT CPT-84481 Venipuncture Draw Fee 11:09:14 CDT CPT-05991 Venipuncture Draw Fee 08:32:21 BOW REPAIRER CUSTOM CPT-68843 Venipuncture Draw Fee 09:38:56 BOW REPAIRER CUSTOM CPT-45310 No Charge Offi Visit 21:36:07 CDT 1 CPT-54366 Venipuncture Draw Fee 10:13:28 BOW REPAIRER CUSTOM CPT-49341 Venipuncture Draw Fee 08:31:11 CDT CPT-27002 Aspir/Inject Med Joint 18:17:28 CDT CPT-58076 Venipuncture Draw Fee 10:13:30 CDT CPT-48765 Venipuncture Draw Fee 08:31:43 BOW REPAIRER CUSTOM CPT-JTINJ Joint Injection 18:34:50 CDT CPT-30105 Knee 3V 12:25:09 CDT CPT-66292 Venipuncture Draw Fee 12:15:57 CDT CPT-060 Medical Surveillance Exam 21:31:43 CDT 2011 CPT-42698 Venipuncture Draw Fee 08:32:05 BOW REPAIRER CUSTOM CPT-OV Office Visit 18:19:06 CDT
--- OUTSIDE RECORDS SUMMARY | 2020-01-18 11:44 | XMS REPORT | Clinical Summary ---
Author Author Admin, Mitch Leon Organization [facility] [employer] Address Unknown Phone Unavailable Allergies, Adverse Reactions, Alerts Allergy Name Reaction Description Start Date Severity Status Pr ovider PENICILLIN HIVES Critical Active Mitch Uribna DO Conditions or Problems Problem Name Problem [...] Coronary atherosclerosis of unspecified type of vessel, [place] or graft EDEMA 782.3 Resolved Mitch Urbina [...] Carlitos DO Sebaceous cyst Cellulitis 682.9 Resolved Mithc Arnol Urbina DO Cellulitis and abscess of [...] Urbina DO REACTIVE HYPOGLYCEMIA ICD-251.2 Inactive Mitch Uribna DO LONG-TERM (CURRENT) USE OF ANTICOAGULANTS ICD-V58.61 [...] 1 tablet by mouth daily AMLODIPINE BESYLATE 35198164748 No Longer Active Joe Williamson APRN Active MITIGARE 0.6 MG ORAL CAPS 2 capsules at onset of gout pain, then take one capsule at 1 hour if symptoms persist. COLCHICINE 59 226587328 Active Mitch Urbina DO Active COUMADIN 1 MG TAB 2 tabs orally daily with the 5mg tab to equal 7mg daily WARFARIN SODIUM 59714658469 Active Mitch Urbina DO Active COLCRYS 0.6 MG TABS 1 tab qid prn gout COLCHICINE 86252806966 Active Norma Sage Active INVOKANA 100 MG ORAL TABS 1 tablet orally daily CANAGLIFLOZIN 12005662020 Active Mitch Urbina DO Active MINOXIDIL 2.5 MG TABS 1 tablet daily for high blood pressure 10/23 MINOXIDIL 56132162557 Active Mitch Urbina DO Active MECLIZINE HCL 25 MG TAB 1 po tid 3 days, then 1/2 tab tid 3 days MECLIZINE HCL 63363048123 No Longer Active Coery SEGURA Active ALLOPURINOL 300 MG TABS Take 1 tablet by mouth daily 2 ALLOPURINOL 37624485788 No Longer Active Corey SEGURA Activ e CLONIDINE HCL 0.1 MG TABS 1 po bid 7 days, then 1/2 tab po b id 7 days CLONIDINE HCL 78638120801 No Longer Active Corey SEGURA Active COUMADIN 5 MG TABS 1 tab PO daily WARFARIN SODIUM 66257233580 Active Mitch Urbina DO Active COUMADIN 4 MG TABS 1 tablet daily WARFARIN SODI UM 39998220370 No Longer Active Corey SEGURA Active POLYTRIM 11084-8.1 UNIT/ML-% SOLN 1 drop in affected e ye every 3 hours while awake x 7 days POLYMYXIN B-TRIMETHOPRIM 92151362440 N o Longer Active Corey SEGURA Active LOSARTAN POTASSIUM-HCTZ 100-12.5 MG TABS 1 by mouth da rocky for high blood pressure LOSARTAN POTASSIUM-HCTZ 62123782156 Active Stephy Urbina DO Active LISINOPRIL-HYDROCHLOROTHIAZIDE 20-12.5 MG TABS 1 tab by mouth da rocky LISINOPRIL-HYDROCHLOROTHIAZIDE 88639565855 No Longer Active Mitch luis DO Active LISINOPRIL 20 MG TABS 1 tab po at HS LISINOPRIL 38286629998 No Longer Active Mitch Urbina DO Active COUMADIN 5 MG TABS 1 by mouth every other day WARFARIN SODIUM 96567381690 No Longer Active Mitch Arnol Carlitos DO Active COUMADIN 6 MG TABS 1 by mouth every other day WARFARIN SODIUM 11519058441 No Longer Active Mitch Urbina DO Active SIMVASTATIN 40 MG TABS 1 tab daily at bedtime S IMVASTATIN 93698774659 Active Mitch Urbina DO Active SIMVASTATIN 20 MG TABS 1 tab daily at bedtime S IMVASTATIN 17331131777 No Longer Active Mitch Urbina DO Active LOVENOX 100 MG/ML SC SOLN One injection twice a day 09/15/15 ENOXAPARIN SODIUM 37218777809 No Longer Active Carmine Navarrete ctive JANUVIA 50 MG TABS Take one by mouth daily DIEGO GLIPTIN PHOSPHATE 53288833183 Active Mitch Urbina DO Active JANUVIA 100 MG TABS 1/2 by mouth every day DEIGO GLIPTIN PHOSPHATE 45286245028 No Longer Active Bijal Segal RN Active METFORMIN HCL 500 MG TABS 2 by mouth twice daily METFORMIN HCL 12028973179 Active Mitch Urbina DO Active GLIMEPIRIDE 4 MG TABS 1 tab po bid GLIMEPIRIDE 269469 79862 Active Mitch Urbina DO Active COLCRYS 0.6 MG TABS 1 po q 6 hours prn gout pain 03/02 COLCHICINE 93603783358 No Longer Active Camila Reese Active LISINOPRIL 5 MG TABS 1 by mouth every day LISIN OPRIL 63451335403 No Longer Active Nguyen Perez Active KLOR-CON 20 MEQ PACK Take one by mouth daily 8 POTASSIUM CHLORIDE 20876524657 No Longer Active Nguyen Perez Active FUROSEMIDE 40 MG TABS 1 by mouth daily FUROSEMI DE 17040356962 No Longer Active Nguyen Perez Active PROVIGIL 200 MG TABS 1/2 tab po q day MODAFINIL 85710 189906 Active iMtch Urbina DO Active PROVIGIL 100 MG TABS Take one by mouth daily MO DAFINIL 73993141894 No Longer Active Mitch Urbina DO Active BACTRIM DS 800-160 MG TAB 1 tab by mouth twice daily 2 TRIMETHOPRIM-SULFAMETHOXAZOLE 15712420506 No Longer Active Renan Hays MD Active FAMOTIDINE 20 MG TABS by mouth twice a day FAMOTI DINE 10547040387 Active Mitch Urbina DO Active ADULT ASPIRIN LOW STRENGTH 81 MG TBDP 1 by mouth every daily ASPIRIN 90655761210 Active Mitch Urbina DO Active METOPROLOL TARTRATE 50 MG TABS 1 by mouth twice daily METOPROLOL TARTRATE 57417206169 Active Mitch Urbina DO Active BACTRIM DS 800-160 MG TAB 1 tab by mouth twice daily 2 BACTRIM DS 800-160 MG TAB 753427 TRIMETHOPRIM-SULFAMETHOXAZOLE Inac tive PROVIGIL 100 MG TABS Take one by mouth daily 4 PROVIGIL 100 MG TABS 834463 MODAFINIL Inactive FUROSEMIDE 40 MG TABS 1 by mouth daily FU ROSEMIDE 40 MG TABS 087246 FUROSEMIDE Inactive KLOR-CON 20 MEQ PACK Take one by mouth daily 8 KLOR-CON 20 MEQ PACK 8179909 POTASSIUM CHLORIDE Inactive LISINOPRIL 5 MG TABS 1 by mouth every day LISINOPRIL 5 MG TABS 828146 LISINOPRIL Inactive COLCRYS 0.6 MG TABS 1 po q 6 hours prn gout pain 03/02 COLCRYS 0.6 MG TABS 130336 COLCHICINE Inactive JANUVIA 100 MG TABS 1/2 by mouth every day JANUVI A 100 MG TABS SITAGLIPTIN PHOSPHATE Inactive SIMVASTATIN 20 MG TABS 1 tab daily at bedtime SIMVASTATIN 20 MG TABS 936676 SIMVASTATIN Inactive COUMADIN 6 MG TABS 1 by mouth every other day COUMADIN 6 MG TABS 177979 WARFARIN SODIUM Inactive COUMADIN 5 MG TABS 1 by mouth every other day COUMADIN 5 MG TABS 606175 WARFARIN SODIUM Inactive LISINOPRIL 20 MG TABS 1 tab po at HS KOKI NOPRIL 20 MG TABS 338280 LISINOPRIL Inactive LISINOPRIL-HYDROCHLOROTHIAZIDE 20-12.5 MG TABS 1 tab by mouth da rocky LISINOPRIL-HYDROCHLOROTHIAZIDE 20-12.5 MG TABS 658592 LISINOPRIL-HYDROCHLOROTHIAZIDE Inactive POLYTRIM 24686-5.1 UNIT/ML-% SOLN 1 drop in affected e ye every 3 hours while awake x 7 days POLYTRIM 64441-1.1 UNIT/ML-% SOLN 67853 7 POLYMYXIN B-TRIMETHOPRIM Inactive COUMADIN 4 MG TABS 1 tablet daily COUMADIN 4 MG TABS 699207 WARFARIN SODIUM Inactive CLONIDINE HCL 0.1 MG TABS 1 po bid 7 days, then 1/2 tab po b id 7 days CLONIDINE HCL 0.1 MG TABS 526470 CLONIDINE HCL I nactive ALLOPURINOL 300 MG TABS Take 1 tablet by mouth daily 2 ALLOPURINOL 300 MG TABS 251315 ALLOPURINOL Inactive MECLIZINE HCL 25 MG TAB 1 po tid 3 days, then 1/2 tab tid 3 days MECLIZINE HCL 25 MG TAB 095532 MECLIZINE HCL Inactive AMLODIPINE BESYLATE 5 MG TABS 1 tablet by mouth daily AMLODIPINE BESYLATE 5 MG TABS 997304 AMLODIPINE BESYLATE Inactive LOVENOX 100 MG/ML SC SOLN One injection twice a day 09/15/15 LOVENOX 100 MG/ML SC SOLN 653184 ENOXAPARIN SODIUM Inactive Vital Signs Date Name Value Unit Range Description blood pressure, diastolic - 8462-4 63 mm[Hg] BP mane blood pressure, systolic - 8480-6 136 mm[Hg] BP sys pulse rate E&M - 8867-4 75 /min H eart rate temperature E&M 98.9 [degF] Body temp erature weight E&M - 3141-9 226.5 [lb_av] Weigh t Measured blood pressure, diastolic - 8462-4 71 mm[Hg] [...] Description Chart Maintenance: hemoccult added to fl oweet - Chemistry occult blood, stool (E&M) Positive Lab Report: CBC, MICROALB/CREAT W/RATIO - Chemistry [...] ... - Chemistry sodium, serum 144 mmol/L 602-485 9083/06/12 carbon dioxide, venous blood 26.6 mmol/L 21.0-32 [...] CBC - Chemistry cholesterol, serum 136 mg/dL 745-929 6594/08/09 triglyceride, serum, fasting 187 mg/dL 30-200 HDL [...] 1.0-3.5 Encounters Code Encounter Date Provider Facility CPT-84226 Level 4 Est. Patient 09:30:18 CDT Mitch luis [facility] CPT-58581 Level 3 Est. Patient 15:10:14 CDT Joe kamara [facility][note 3] CPT-14864 Level 3 Est. Patient 15:03:46 CDT Joe kamara [facility][note 3] CPT-44097 Level 3 Est. Patient 14:21:06 CDT Mitch luis [facility] CPT-97385 Level 3 Est. Patient 14:52:06 CDT Joe kamara APRN [facility] CPT-76789 Level 3 Est. Patient 09:34:30 ORCHESTRA CONDUCTOR Mitch W L ee [facility] CPT-24037 Level 3 Est. Patient 09:37:15 CDT Mitch W L ee [facility] CPT-05887 Level 3 Est. Patient 17:01:00 ORCHESTRA CONDUCTOR Mitch W L ee [facility] CPT-91932 Level 3 Est. Patient 13:53:19 ORCHESTRA CONDUCTOR Mitch W L ee [facility] CPT-89840 Level 3 Est. Patient 19:19:37 ORCHESTRA CONDUCTOR Mitch W L ee [facility] CPT-22951 Level 3 Est. Patient 13:25:53 ORCHESTRA CONDUCTOR Tavo toure MD [facility]-39416 Level 3 Est. Patient 18:17:28 CDT Mitch W L janelle [facility] CPT-73167 Level 3 Est. Patient 15:22:57 CDT Mitch W L ee [facility] CPT-54238 Level 3 Est. Patient 18:21:50 CDT Mitch W L ee [facility] CPT-68753 Level 3 Est. Patient 18:20:38 CDT Mitch W L ee [facility] CPT-14831 Level 3 Est. Patient 15:37:55 CDT Mitch W L ee [facility] CPT-47396 Level 2 Est. Patient 15:54:44 CDT Carmine benton MD [facility]-84441 Level 3 Est. Patient 21:46:01 ORCHESTRA CONDUCTOR Mitch W L ee [facility] CPT-09645 Level 3 Est. Patient 22:15:50 CDT Mitch W L ee [facility] CPT-50323 Level 3 Est. Patient 10:48:15 CDT Mitch W L ee [facility] CPT-27369 Level 3 Est. Patient 23:20:57 CDT Tavo toure MD [facility] CPT-01281 Level 3 Est. Patient 16:26:13 CDT Mitch luis [facility] Procedures Code Procedure Name Date Entry Date Standard Desc ription CPT-06132 PT/INR - LAB USE ONLY 13:32:49 ORCHESTRA CONDUCTOR CPT-28603 Venipuncture Draw Fee 13:32:49 ORCHESTRA CONDUCTOR CPT-23120 PT/INR - LAB USE ONLY 10:34:49 ORCHESTRA CONDUCTOR CPT-29324 Venipuncture Draw Fee 10:34:48 ORCHESTRA CONDUCTOR CPT-17494 PT/INR - LAB USE ONLY 09:22:03 ORCHESTRA CONDUCTOR CPT-52670 Venipuncture Draw Fee 09:22:02 ORCHESTRA CONDUCTOR CPT-69012 Hemoccult IFOBT - LAB USE ONLY 10:27:22 CDT CPT-51301 Venipuncture Draw Fee 08:27:08 CDT CPT-79402 Liver Profile - LAB USE ONLY 08:27:07 CDT 2 CPT-20839 Microalbumin - LAB USE ONLY 08:27:07 CDT 20 25/05/09 CPT-65771 PT/INR - LAB USE ONLY 08:27:07 CDT CPT-08985 HGBA1C - LAB USE ONLY 08:27:07 CDT CPT-92590 CBC - LAB USE ONLY 08:27:07 CDT CPT-58485 Venipuncture Draw Fee 11:09:14 CDT CPT-12735 Venipuncture Draw Fee 08:32:21 ORCHESTRA CONDUCTOR CPT-95725 Venipuncture Draw Fee 09:38:56 ORCHESTRA CONDUCTOR CPT-46432 No Charge Offi Visit 21:36:07 CDT 1 CPT-66793 Venipuncture Draw Fee 10:13:28 ORCHESTRA CONDUCTOR CPT-97941 Venipuncture Draw Fee 08:31:11 CDT CPT-15731 Aspir/Inject Med Joint 18:17:28 CDT CPT-40217 Venipuncture Draw Fee 10:13:30 CDT CPT-67054 Venipuncture Draw Fee 08:31:43 ORCHESTRA CONDUCTOR CPT-JTINJ Joint Injection 18:34:50 CDT CPT-16732 Knee 3V 12:25:09 CDT CPT-72295 Venipuncture Draw Fee 12:15:57 CDT CPT-060 Medical Surveillance Exam 21:31:43 CDT 2011 CPT-05672 Venipuncture Draw Fee 08:32:05 ORCHESTRA CONDUCTOR CPT-OV Office Visit 18:19:06 CDT
[2020-01-18] MEDS ORDERED: VANCOMYCIN INJECTION 1,000 MG in NS (IVPB) 250 ML IV ONE (11:45)
--- OUTSIDE RECORDS SUMMARY | 2020-01-18 11:45 | XMS REPORT | Clinical Summary ---
Author Author Admin, Mitch Leon Organization [facility] Address Unknown Phone Unavailable Allergies, Adverse Reactions, [...] unspecified hyperlipidemia DIABETES, TYPE 2 250.00 Active Reann Hays MD Diabetes mellitus without mention of complication, type II or unspecified type, not stated as uncontrolled FAMILY HISTORY COLON CANCER-MOTHER V16.0 Active 2 Renna Hays MD Family history of malignant neoplasm [...] Coronary atherosclerosis of unspecified type of vessel, [place] or graft EDEMA 782.3 Resolved Mitch Urbina [...] 1 tablet by mouth daily AMLODIPINE BESYLATE 22522118357 No Longer Active Joe Williamson APRN Active MITIGARE 0.6 MG ORAL CAPS 2 capsules at onset of gout pain, then take one capsule at 1 hour if symptoms persist. COLCHICINE 59 302309369 Active Mitch Urbina DO Active COUMADIN 1 MG TAB 2 tabs orally daily with the 5mg tab to equal 7mg daily WARFARIN SODIUM 63206488591 Active Brenda Shen Active COLCRYS 0.6 MG TABS 1 tab qid prn gout COLCHICINE 68394591637 Active Norma Cazares Active INVOKANA 100 MG ORAL TABS 1 tablet orally daily CANAGLIFLOZIN 17892092622 Active Brenda Shen Active MINOXIDIL 2.5 MG TABS 1 tablet daily for high blood pressure 10/23 MINOXIDIL 93116706396 Active Ana Wallace Active MECLIZINE HCL 25 MG TAB 1 po tid 3 days, then 1/2 tab tid 3 days MECLIZINE HCL 99078674543 No Longer Active Corey SEGURA Active ALLOPURINOL 300 MG TABS Take 1 tablet by mouth daily 2 ALLOPURINOL 37998651557 No Longer Active Corey SEGURA Activ e CLONIDINE HCL 0.1 MG TABS 1 po bid 7 days, then 1/2 tab po b id 7 days CLONIDINE HCL 79086531678 No Longer Active Corey SEGURA Active COUMADIN 5 MG TABS 1 tab PO daily WARFARIN SODIUM 99162949281 Active Mitch Urbina DO Active COUMADIN 4 MG TABS 1 tablet daily WARFARIN SODI UM 79083790518 No Longer Active Corey SEGURA Active POLYTRIM 76095-3.1 UNIT/ML-% SOLN 1 drop in affected e ye every 3 hours while awake x 7 days POLYMYXIN B-TRIMETHOPRIM 54082194249 N o Longer Active Corey SEGURA Active LOSARTAN POTASSIUM-HCTZ 100-12.5 MG TABS 1 by mouth da [place] for high blood pressure LOSARTAN POTASSIUM-HCTZ 31679524352 Active Brenda Shen Active LISINOPRIL-HYDROCHLOROTHIAZIDE 20-12.5 MG TABS 1 tab by mouth da rocky LISINOPRIL-HYDROCHLOROTHIAZIDE 24201327787 No Longer Active Mitch luis DO Active LISINOPRIL 20 MG TABS 1 tab po at HS LISINOPRIL 64866261887 No Longer Active Mitch Urbina DO Active COUMADIN 5 MG TABS 1 by mouth every other day WARFARIN SODIUM 97820812564 No Longer Active Mitch Urbina DO Active COUMADIN 6 MG TABS 1 by mouth every other day WARFARIN SODIUM 78943838351 No Longer Active Mitch Urbina DO Active SIMVASTATIN 40 MG TABS 1 tab daily at bedtime S IMVASTATIN 43293714009 Active Mitch Urbina DO Active SIMVASTATIN 20 MG TABS 1 tab daily at bedtime S IMVASTATIN 46264392026 No Longer Active Mitch Urbina DO Active LOVENOX 100 MG/ML SC SOLN One injection twice a day 09/15/15 ENOXAPARIN SODIUM 94513630425 No Longer Active Carmine Navarrete ctive JANUVIA 50 MG TABS Take one by mouth daily DIEGO GLIPTIN PHOSPHATE 49929444253 Active Mitch Urbina DO Active JANUVIA 100 MG TABS 1/2 by mouth every day DIEGO GLIPTIN PHOSPHATE 69651523093 No Longer Active Bijal Segal RN Active METFORMIN HCL 500 MG TABS 2 by mouth twice daily METFORMIN HCL 40895550265 Active Mitch Urbina DO Active GLIMEPIRIDE 4 MG TABS 1 tab po bid GLIMEPIRIDE 684255 84523 Active Mitch Urbina DO Active COLCRYS 0.6 MG TABS 1 po q 6 hours prn gout pain 03/02 COLCHICINE 32449219472 No Longer Active Camila Reese Active LISINOPRIL 5 MG TABS 1 by mouth every day LISIN OPRIL 25260019824 No Longer Active Nguyen Perez Active KLOR-CON 20 MEQ PACK Take one by mouth daily 8 POTASSIUM CHLORIDE 02578197696 No Longer Active Nguyen Perez Active FUROSEMIDE 40 MG TABS 1 by mouth daily FUROSEMI DE 84080414749 No Longer Active Nguyen Perez Active PROVIGIL 200 MG TABS 1/2 tab po q day MODAFINIL 15914 280817 Active Brenda Shen Active PROVIGIL 100 MG TABS Take one by mouth daily MO DAFINIL 58058001926 No Longer Active Mitch Urbina DO Active BACTRIM DS 800-160 MG TAB 1 tab by mouth twice daily 2 TRIMETHOPRIM-SULFAMETHOXAZOLE 45037505491 No Longer Active Renan Hays MD Active FAMOTIDINE 20 MG TABS by mouth twice a day FAMOTI DINE 14543473060 Active Mitch Urbina DO Active ADULT ASPIRIN LOW STRENGTH 81 MG TBDP 1 by mouth every daily ASPIRIN 68090163692 Active Mitch Urbina DO Active METOPROLOL TARTRATE 50 MG TABS 1 by mouth twice daily METOPROLOL TARTRATE 68473755735 Active Mitch Urbina DO Active BACTRIM DS 800-160 MG TAB 1 tab by mouth twice daily 2 BACTRIM DS 800-160 MG TAB 943147 TRIMETHOPRIM-SULFAMETHOXAZOLE Inac tive PROVIGIL 100 MG TABS Take one by mouth daily 4 PROVIGIL 100 MG TABS 801624 MODAFINIL Inactive FUROSEMIDE 40 MG TABS 1 by mouth daily FU ROSEMIDE 40 MG TABS 184448 FUROSEMIDE Inactive KLOR-CON 20 MEQ PACK Take one by mouth daily 8 KLOR-CON 20 MEQ PACK 6039427 POTASSIUM CHLORIDE Inactive LISINOPRIL 5 MG TABS 1 by mouth every day LISINOPRIL 5 MG TABS 388187 LISINOPRIL Inactive COLCRYS 0.6 MG TABS 1 po q 6 hours prn gout pain 03/02 COLCRYS 0.6 MG TABS 075440 COLCHICINE Inactive JANUVIA 100 MG TABS 1/2 by mouth every day JANUVI A 100 MG TABS SITAGLIPTIN PHOSPHATE Inactive SIMVASTATIN 20 MG TABS 1 tab daily at bedtime SIMVASTATIN 20 MG TABS 901019 SIMVASTATIN Inactive COUMADIN 6 MG TABS 1 by mouth every other day COUMADIN 6 MG TABS 249679 WARFARIN SODIUM Inactive COUMADIN 5 MG TABS 1 by mouth every other day COUMADIN 5 MG TABS 244530 WARFARIN SODIUM Inactive LISINOPRIL 20 MG TABS 1 tab po at HS KOKI NOPRIL 20 MG TABS 489822 LISINOPRIL Inactive LISINOPRIL-HYDROCHLOROTHIAZIDE 20-12.5 MG TABS 1 tab by mouth da rocky LISINOPRIL-HYDROCHLOROTHIAZIDE 20-12.5 MG TABS 515621 LISINOPRIL-HYDROCHLOROTHIAZIDE Inactive POLYTRIM 82751-5.1 UNIT/ML-% SOLN 1 drop in affected e ye every 3 hours while awake x 7 days POLYTRIM 63145-1.1 UNIT/ML-% SOLN 97115 7 POLYMYXIN B-TRIMETHOPRIM Inactive COUMADIN 4 MG TABS 1 tablet daily COUMADIN 4 MG TABS 775475 WARFARIN SODIUM Inactive CLONIDINE HCL 0.1 MG TABS 1 po bid 7 days, then 1/2 tab po b id 7 days CLONIDINE HCL 0.1 MG TABS 280575 CLONIDINE HCL I nactive ALLOPURINOL 300 MG TABS Take 1 tablet by mouth daily 2 ALLOPURINOL 300 MG TABS 384516 ALLOPURINOL Inactive MECLIZINE HCL 25 MG TAB 1 po tid 3 days, then 1/2 tab tid 3 days MECLIZINE HCL 25 MG TAB 611782 MECLIZINE HCL Inactive AMLODIPINE BESYLATE 5 MG TABS 1 tablet by mouth daily AMLODIPINE BESYLATE 5 MG TABS 570110 AMLODIPINE BESYLATE Inactive LOVENOX 100 MG/ML SC SOLN One injection twice a day 09/15/15 LOVENOX 100 MG/ML SC SOLN 535460 ENOXAPARIN SODIUM Inactive Vital Signs Date Name [...] CBC - Chemistry cholesterol, serum 136 mg/dL 601-636 6119/08/09 triglyceride, serum, fasting 187 mg/dL 30-200 HDL [...] 1.0-3.5 Encounters Code Encounter Date Provider Facility CPT-[id number] Level 3 Est. Patient 15:10:14 CDT Joe kamara [facility] CPT-18090 Level 3 Est. Patient 15:03:46 CDT Joe kamara [facility] CPT-67553 Level 3 Est. Patient 14:21:06 CDT Mitch luis [facility] CPT-25132 Level 3 Est. Patient 14:52:06 CDT Joe kamara [facility] CPT-75224 Level 3 Est. Patient 09:34:30 FRAME STYLIST Mitch luis [facility] CPT-78282 Level 3 Est. Patient 09:37:15 CDT Mitch luis [facility] CPT-42643 Level 3 Est. Patient 17:01:00 FRAME STYLIST Mitch luis [facility] CPT-95120 Level 3 Est. Patient 13:53:19 FRAME STYLIST Mitch luis [facility] CPT-22291 Level 3 Est. Patient 19:19:37 FRAME STYLIST Mitch luis [facility] CPT-84614 Level 3 Est. Patient 13:25:53 FRAME STYLIST Tavo toure MD [facility] CPT-61400 Level 3 Est. Patient 18:17:28 CDT Mitch luis [facility] CPT-09970 Level 3 Est. Patient 15:22:57 CDT Mitch luis [facility] CPT-74104 Level 3 Est. Patient 18:21:50 CDT Mitch luis [facility] CPT-05999 Level 3 Est. Patient 18:20:38 CDT Mitch luis [facility] CPT-19937 Level 3 Est. Patient 15:37:55 CDT Mitch luis [facility] CPT-90002 Level 2 Est. Patient 15:54:44 CDT Carmine benton MD [facility] CPT-10009 Level 3 Est. Patient 21:46:01 FRAME STYLIST Mitch luis [facility] CPT-80228 Level 3 Est. Patient 22:15:50 CDT Mitch luis [facility] CPT-96458 Level 3 Est. Patient 10:48:15 CDT Mitch luis [facility] CPT-02801 Level 3 Est. Patient 23:20:57 CDT Tavo toure MD [facility] CPT-79942 Level 3 Est. Patient 16:26:13 CDT Mitch luis [facility] Procedures Code Procedure Name Date Entry Date Standard Desc ription CPT-41708 PT/INR - LAB USE ONLY 13:32:49 FRAME STYLIST CPT-47699 Venipuncture Draw Fee 13:32:49 FRAME STYLIST CPT-61408 PT/INR - LAB USE ONLY 10:34:49 FRAME STYLIST CPT-71232 Venipuncture Draw Fee 10:34:48 FRAME STYLIST CPT-34191 PT/INR - LAB USE ONLY 09:22:03 FRAME STYLIST CPT-91358 Venipuncture Draw Fee 09:22:02 FRAME STYLIST CPT-34706 Hemoccult IFOBT - LAB USE ONLY 10:27:22 CDT CPT-14131 Venipuncture Draw Fee 08:27:08 CDT CPT-35462 Liver Profile - LAB USE ONLY 08:27:07 CDT 2 CPT-01678 Microalbumin - LAB USE ONLY 08:27:07 CDT 20 25/05/09 CPT-90354 PT/INR - LAB USE ONLY 08:27:07 CDT CPT-49746 HGBA1C - LAB USE ONLY 08:27:07 CDT CPT-93166 CBC - LAB USE ONLY 08:27:07 CDT CPT-22056 Venipuncture Draw Fee 11:09:14 CDT CPT-57973 Venipuncture Draw Fee 08:32:21 FRAME STYLIST CPT-68357 Venipuncture Draw Fee 09:38:56 FRAME STYLIST CPT-70896 No Charge Offi Visit 21:36:07 CDT 1 CPT-93291 Venipuncture Draw Fee 10:13:28 FRAME STYLIST CPT-24824 Venipuncture Draw Fee 08:31:11 CDT CPT-47014 Aspir/Inject Med Joint 18:17:28 CDT CPT-38239 Venipuncture Draw Fee 10:13:30 CDT CPT-20007 Venipuncture Draw Fee 08:31:43 FRAME STYLIST CPT-JTINJ Joint Injection 18:34:50 CDT CPT-62718 Knee 3V 12:25:09 CDT CPT-31041 Venipuncture Draw Fee 12:15:57 CDT CPT-060 Medical Surveillance Exam 21:31:43 CDT 2011 CPT-44711 Venipuncture Draw Fee 08:32:05 FRAME STYLIST CPT-OV Office Visit 18:19:06 CDT
--- OUTSIDE RECORDS SUMMARY | 2020-01-18 11:45 | XMS REPORT | Clinical Summary ---
Author Author Admin, Mitch Leon Organization [facility] Address Unknown Phone Unavailable Allergies, Adverse Reactions, Alerts Allergy Name Reaction Description Start Date Severity Status Pr ovider PENICILLIN HIVES Critical Active Mitch Urbina DO Conditions or Problems Problem Name Problem Code Onset Date Status Entry Date Provider Comment Standard Description Annotate HYPERTENSION 401.9 Active Mitch Urbina DO U nspecified essential hypertension CELLULITIS, GROIN, LEFT 682.2 Active Mitch Meraz DO Cellulitis and abscess of trunk SEROMA 998.13 Active Tavo Hilton MD Seroma complicating a procedure HYPERLIPIDEMIA 272.4 Active Renan Hays MD Other and unspecified hyperlipidemia DIABETES, TYPE 2 250.00 Active Renan Hays MD Diabetes mellitus without mention of complication, type II or unspecified type, not stated as uncontrolled FAMILY HISTORY COLON CANCER-MOTHER V16.0 Active 2 Renan Hays MD Family history of malignant neoplasm of gastrointestinal tract REACTIVE HYPOGLYCEMIA 251.2 Active Mitch Urbina DO Hypoglycemia, unspecified GOUT, WRIST 274.9 Active Mitch Urbina DO Gout, unspecified LONG-TERM (CURRENT) USE OF ANTICOAGULANTS V58.61 Activ e GERALD Shrestha Long-term (current) use of anticoagulant s HEALTH MAINTENANCE EXAM V70.0 Active Mitch Meraz DO Routine general medical examination at a health care facility CORONARY HEART DISEASE 414.00 Active Mitch Urbina DO Coronary atherosclerosis of unspecified type of vessel, venetie ira or graft EDEMA 782.3 Active Mitch Urbina DO Stephen ma DEGENERATIVE JOINT DISEASE, KNEES, 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 3 Active Mitch Urbina DO Osteoarthrosis, unsp ecified whether generalized or localized, involving lower leg DIZZINESS 780.4 Active Mitch Urbina DO D izziness and giddiness CAROTID BRUIT, LEFT 785.9 Active Mitch Urbina DO Other symptoms involving cardiovascular system GOUT, RIGHT WRIST 274.9 Active Mitch Urbina DO Gout, unspecified BRUISE 924.9 Active Mitch Urbina DO Con tusion of unspecified site OLECRANON BURSITIS, RIGHT 726.33 Active Mitch Urbina DO Olecranon bursitis UNSPECIFIED ANEMIA 285.9 Active Blessingmarian Le R MA Anemia, unspecified Malaise and fatigue 780.79 Active Blessingmarian Le RMA Other malaise and fatigue Cough, chronic 786.2 Active Tavo Hilton MD Cough Sebaceous cyst, infected 706.2 Active Guerrero SEGURA Sebaceous cyst Cellulitis 682.9 Active Mitch Urbina DO Cellulitis and abscess of unspecified sites 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 Carmine benton MD Benign neoplasm of colon Medication List Medication Instructions Start Date Stop Date Generic Name NDC Status Provider Patient Instruction AMLODIPINE BESYLATE 5 MG TABS 1 tablet by mouth daily AMLODIPINE BESYLATE 16126288358 Active Mitch Urbina DO Active MECLIZINE HCL 25 MG TAB 1 po tid 3 days, then 1/2 tab tid 3 days MECLIZINE HCL 89915195400 No Longer Active Corey SEGURA Active ALLOPURINOL 300 MG TABS Take 1 tablet by mouth daily 2 ALLOPURINOL 31604173653 No Longer Active Corey SEGURA Activ e CLONIDINE HCL 0.1 MG TABS 1 po bid 7 days, then 1/2 tab po b id 7 days CLONIDINE HCL 80209501506 No Longer Active Corey SEGURA Active COUMADIN 5 MG TABS 1 tab PO daily WARFARIN SODIUM 33860900410 Active Mitch Urbina DO Active COUMADIN 4 MG TABS 1 tablet daily WARFARIN SODI UM 46099448892 No Longer Active Corey SEGURA Active POLYTRIM 80886-0.1 UNIT/ML-% SOLN 1 drop in affected e ye every 3 hours while awake x 7 days POLYMYXIN B-TRIMETHOPRIM 95004960896 N o Longer Active Corey SEGURA Active LOSARTAN POTASSIUM-HCTZ 100-12.5 MG TABS 1 by mouth da rocky for high blood pressure LOSARTAN POTASSIUM-HCTZ 33199889675 Active Stephy Urbina DO Active LISINOPRIL-HYDROCHLOROTHIAZIDE 20-12.5 MG TABS 1 tab by mouth da rocky LISINOPRIL-HYDROCHLOROTHIAZIDE 08058179021 No Longer Active Mitch luis DO Active LISINOPRIL 20 MG TABS 1 tab po at HS LISINOPRIL 96707341218 No Longer Active Mitch Urbina DO Active COUMADIN 5 MG TABS 1 by mouth every other day WARFARIN SODIUM 30932421204 No Longer Active Mitch Urbina DO Active COUMADIN 6 MG TABS 1 by mouth every other day WARFARIN SODIUM 89659430746 No Longer Active Mitch Urbina DO Active COLCRYS 0.6 MG TABS 1 tab qid prn gout COLCHICINE 39501549100 Active Corey SEGURA Active SIMVASTATIN 40 MG TABS 1 tab daily at bedtime S IMVASTATIN 94808502520 Active Mitch Urbina DO Active SIMVASTATIN 20 MG TABS 1 tab daily at bedtime S IMVASTATIN 74316306531 No Longer Active Mitch Urbina DO Active LOVENOX 100 MG/ML SC SOLN One injection twice a day 09/15/15 ENOXAPARIN SODIUM 96161890224 No Longer Active Carmine Navarrete ctive JANUVIA 50 MG TABS Take one by mouth daily DIEGO GLIPTIN PHOSPHATE 71425111344 Active Mitch Urbina DO Active JANUVIA 100 MG TABS 1/2 by mouth every day DIEGO GLIPTIN PHOSPHATE 43341675775 No Longer Active Bijalseth Segal RN Active METFORMIN HCL 500 MG TABS 2 by mouth twice daily METFORMIN HCL 30034561250 Active Mitch Urbina DO Active GLIMEPIRIDE 4 MG TABS 1 tab po bid GLIMEPIRIDE 740594 80529 Active Mitch Urbina DO Active COLCRYS 0.6 MG TABS 1 po q 6 hours prn gout pain 03/02 COLCHICINE 24002020407 No Longer Active Camilamargarita Reese Active LISINOPRIL 5 MG TABS 1 by mouth every day LISIN OPRIL 77859602094 No Longer Active Nguyenmolly Perez Active KLOR-CON 20 MEQ PACK Take one by mouth daily 8 POTASSIUM CHLORIDE 96609348020 No Longer Active Nguyenmolly Perez Active FUROSEMIDE 40 MG TABS 1 by mouth daily FUROSEMI DE 53833931821 No Longer Active Nguyen Perez Active PROVIGIL 200 MG TABS 1/2 tab po q day MODAFINIL 81055 722331 Active Mitch Urbina DO Active PROVIGIL 100 MG TABS Take one by mouth daily MO DAFINIL 10122247829 No Longer Active Mitch Urbina DO Active BACTRIM DS 800-160 MG TAB 1 tab by mouth twice daily TRIMETHOPRIM-SULFAMETHOXAZOLE 79001890441 No Longer Active Renan Hays MD Active FAMOTIDINE 20 MG TABS by mouth twice a day FAMOTI DINE 04242409322 Active Mitch Urbina DO Active ADULT ASPIRIN LOW STRENGTH 81 MG TBDP 1 by mouth every daily ASPIRIN 72183973162 Active Mitch W [place] DO Active METOPROLOL TARTRATE 50 MG TABS 1 by mouth twice daily METOPROLOL TARTRATE 35509639154 Active Curly Coker MD Active BACTRIM DS 800-160 MG TAB 1 tab by mouth twice daily 2 BACTRIM DS 800-160 MG TAB TRIMETHOPRIM-SULFAMETHOXAZOLE Inac tive PROVIGIL 100 MG TABS Take one by mouth daily 4 PROVIGIL 100 MG TABS 450187 MODAFINIL Inactive FUROSEMIDE 40 MG TABS 1 by mouth daily FU ROSEMIDE 40 MG TABS 863574 FUROSEMIDE Inactive KLOR-CON 20 MEQ PACK Take one by mouth daily 8 KLOR-CON 20 MEQ PACK 553206 POTASSIUM CHLORIDE Inactive LISINOPRIL 5 MG TABS 1 by mouth every day LISINOPRIL 5 MG TABS 393342 LISINOPRIL Inactive COLCRYS 0.6 MG TABS 1 po q 6 hours prn gout pain 03/02 COLCRYS 0.6 MG TABS 062354 COLCHICINE Inactive JANUVIA 100 MG TABS 1/2 by mouth every day JANUVI A 100 MG TABS SITAGLIPTIN PHOSPHATE Inactive SIMVASTATIN 20 MG TABS 1 tab daily at bedtime SIMVASTATIN 20 MG TABS 706376 SIMVASTATIN Inactive COUMADIN 6 MG TABS 1 by mouth every other day COUMADIN 6 MG TABS 815300 WARFARIN SODIUM Inactive COUMADIN 5 MG TABS 1 by mouth every other day COUMADIN 5 MG TABS 870116 WARFARIN SODIUM Inactive LISINOPRIL 20 MG TABS 1 tab po at HS KOKI NOPRIL 20 MG TABS 687904 LISINOPRIL Inactive LISINOPRIL-HYDROCHLOROTHIAZIDE 20-12.5 MG TABS 1 tab by mouth da rocky LISINOPRIL-HYDROCHLOROTHIAZIDE 20-12.5 MG TABS 367963 LISINOPRIL-HYDROCHLOROTHIAZIDE Inactive POLYTRIM 83189-7.1 UNIT/ML-% SOLN 1 drop in affected e ye every 3 hours while awake x 7 days POLYTRIM 52657-7.1 UNIT/ML-% SOLN 45506 7 POLYMYXIN B-TRIMETHOPRIM Inactive COUMADIN 4 MG TABS 1 tablet daily COUMADIN 4 MG TABS 388544 WARFARIN SODIUM Inactive CLONIDINE HCL 0.1 MG TABS 1 po bid 7 days, then 1/2 tab po b id 7 days CLONIDINE HCL 0.1 MG TABS 958229 CLONIDINE HCL I nactive ALLOPURINOL 300 MG TABS Take 1 tablet by mouth daily 2 ALLOPURINOL 300 MG TABS 575162 ALLOPURINOL Inactive MECLIZINE HCL 25 MG TAB 1 po tid 3 days, then 1/2 tab tid 3 days MECLIZINE HCL 25 MG TAB 321752 MECLIZINE HCL Inactive LOVENOX 100 MG/ML SC SOLN One injection twice a day 09/15/15 LOVENOX 100 MG/ML SC SOLN 831388 ENOXAPARIN SODIUM Inactive Vital Signs Date Name Value Unit Range Description blood pressure, diastolic - 8462-4 82 mm[Hg] BP mane blood pressure, systolic - 8480-6 176 mm[Hg] BP sys pulse rate E&M - 8867-4 77 /min H eart rate temperature E&M 97.9 [degF] Body temp erature weight E&M - 3141-9 239 [lb_av] Weigh t Measured blood pressure, diastolic - 8462-4 75 mm[Hg] BP mane blood pressure, systolic - 8480-6 164 mm[Hg] BP sys pulse rate E&M - 8867-4 67 /min H eart rate temperature E&M 98.4 [degF] Body temp erature weight E&M - 3141-9 234 [lb_av] Weigh t Measured blood pressure, diastolic - 8462-4 74 mm[Hg] BP mane blood pressure, systolic - 8480-6 159 mm[Hg] BP sys pulse rate E&M - 8867-4 71 /min H eart rate temperature E&M 97.6 [degF] Body temp erature weight E&M - 3141-9 235 [lb_av] Weigh t Measured Diagnostic Results Date Name Value Unit Range Description Lab Report: CBC W/DIFF - Hematology leukocyte count, blood 6.2 10^3/MM^3 10*3/mm3 4.6-10.2 neutrophils as percent of blood leukocytes 69.3 % 42.2-75.2 monocytes as percent of blood leukocytes 7.3 % 1.7-9.3 lymphocytes as percent of blood leukocytes 19.7 % 20.5-51.1 erythrocyte (RBC) count 4.83 10^6/MM^3 10*6/mm3 4.69-6.1 3 hemoglobin, blood 13.0 g/dL 13.5-17.5 hematocrit, blood 39.5 % 41.0-53.0 mean corpuscular volume, RBC 82 fL 80-97 mean corpuscular hemoglobin, RBC 27.0 pg 27. 0-31.2 mean corpuscular hemoglobin concentration, RBC 33.0 G/DL % 31.8-35.4 red blood cell distribution width 17.2 % 11 .6-14.8 platelet count 283 10^3/MM^3 10*3/mm3 142-424 Lab Report: CBC, Comp. Metabolic Panel, Prostatic Specific Ag - Chemistry sodium, serum 141 mmol/L 620-648 0996/07/06 potassium, serum 4.4 mmol/L 3.5-5.2 chloride, serum 104 mmol/L 98-107 carbon dioxide, venous blood 27.0 mmol/L 21.0-32 .0 blood glucose 148 mg/dL 65-110 urea nitrogen, blood 20 mg/dL 7-18 creatinine, serum 1.00 mg/dL 0.60-1.30 alanine aminotransferase (SGPT), serum 36 U/L 12-78 aspartate aminotransferase (SGOT), serum 24 U/L 15-37 calcium, serum 9.9 mg/dL 8.5-10.1 bilirubin, serum, total 0.70 mg/dL 0.00-1.00 prostate specific antigen 2.50 ng/mL 0.00-4.00 Lab Report: CBC, Comp. Metabolic Panel, Prostatic Specific Ag - Hematology leukocyte count, blood 7.7 10^3/MM^3 10*3/mm3 4.6-10.2 erythrocyte (RBC) count 4.60 10^6/MM^3 10*6/mm3 4.69-6.1 3 hemoglobin, blood 12.4 g/dL 13.5-17.5 hematocrit, blood 38.1 % 41.0-53.0 mean corpuscular volume, RBC 83 fL 80-97 mean corpuscular hemoglobin, RBC 27.0 pg 27. 0-31.2 mean corpuscular hemoglobin concentration, RBC 32.7 G/DL % 31.8-35.4 red blood cell distribution width 18.2 % 11 .6-14.8 platelet count 269 10^3/MM^3 10*3/mm3 142-424 Lab Report: Comp. Metabolic Panel, HGBA1 C, Lipid Panel - Chemistry sodium, serum 137 mmol/L 579-212 2001/11/14 potassium, serum 4.4 mmol/L 3.5-5.2 chloride, serum 100 mmol/L 98-107 carbon dioxide, venous blood 33.0 mmol/L 21.0-32 .0 blood glucose 181 mg/dL 65-110 urea nitrogen, blood 28 mg/dL 7-18 creatinine, serum 1.30 mg/dL 0.60-1.30 alanine aminotransferase (SGPT), serum 38 U/L -78 aspartate aminotransferase (SGOT), serum 34 U/L 15-37 calcium, serum 10.4 mg/dL 8.5-10.1 bilirubin, serum, total 0.90 mg/dL 0.00-1.00 hemoglobin A1C, blood, as % of total hemoglobin 8.0 % 4.3-6.0 cholesterol, serum 130 mg/dL 620-001 1818/11/14 triglyceride, serum, fasting 288 mg/dL 30-200 HDL cholesterol, serum 33 mg/dL 32-96 LDL cholesterol, serum 39 mg/dL 0-130 Lab Report: Comp. Metabolic Panel, HGBA1 C, Lipid Panel, Prothrombin Time - Chemistry sodium, serum 136 mmol/L 265-755 2299/12/02 potassium, serum 4.4 mmol/L 3.5-5.2 chloride, serum 101 mmol/L 98-107 carbon dioxide, venous blood 29.0 mmol/L 21.0-32 .0 blood glucose 149 mg/dL 65-110 urea nitrogen, blood 29 mg/dL 7-18 creatinine, serum 1.20 mg/dL 0.60-1.30 alanine aminotransferase (SGPT), serum 46 U/L 78 aspartate aminotransferase (SGOT), serum 34 U/L 15-37 calcium, serum 10.3 mg/dL 8.5-10.1 bilirubin, serum, total 0.60 mg/dL 0.00-1.00 hemoglobin A1C, blood, as % of total hemoglobin 7.6 % 4.3-6.0 cholesterol, serum 117 mg/dL 745-013 3874/12/02 triglyceride, serum, fasting 226 mg/dL 30-200 HDL cholesterol, serum 30 mg/dL 32-96 LDL cholesterol, serum 42 mg/dL 0-130 Lab Report: Comp. Metabolic Panel, HGBA1 C, Lipid Panel, Prothrombin Time - Coagulation prothrombin time (patient) 16.3 SECS s 11.1-13.4 international normalized ratio (INR) 1.7 1.0-3.5 Lab Report: HGBA1C - Chemistry hemoglobin A1C, blood, as % of total hemoglobin 7.3 % 4.3-6.0 Lab Report: HGBA1C, Lipid Panel - Chemis try hemoglobin A1C, blood, as % of total hemoglobin 7.0 % 4.3-6.0 cholesterol, serum 120 mg/dL 418-206 4185/07/06 triglyceride, serum, fasting 186 mg/dL 30-200 HDL cholesterol, serum 34 mg/dL 32-96 LDL cholesterol, serum 49 mg/dL 0-130 Lab Report: MICROALBUMIN - Chemistry albumin/creatinine ratio, urine < 30 mg/g mg/g{creat} 0-2 9 Lab Report: MICROALBUMIN - Lab microalbumin, urine 30 0-19 Lab Report: Prothrombin Time - Coagulati on prothrombin time (patient) 18.6 SECS s 11.1-13.4 international normalized ratio (INR) 2.3 1.0-3.5 prothrombin time (patient) 18.6 SECS s 11.1-13.4 international normalized ratio (INR) 2.2 1.0-3.5 prothrombin time (patient) 20.1 SECS s 11.1-13.4 international normalized ratio (INR) 2.6 1.0-3.5 prothrombin time (patient) 19.9 SECS s 11.1-13.4 international normalized ratio (INR) 2.6 1.0-3.5 prothrombin time (patient) 16.0 SECS s 11.1-13.4 international normalized ratio (INR) 1.7 1.0-3.5 Encounters Code Encounter Date Provider Facility CPT-98388 Level 3 Est. Patient 09:37:15 CDT Mitch luis [facility] CPT-56349 Level 3 Est. Patient 17:01:00 VOCATIONAL TECHNICAL EDUCATION DIRECTOR Mitch Ambrose L janelle [facility] CPT-34539 Level 3 Est. Patient 13:53:19 VOCATIONAL TECHNICAL EDUCATION DIRECTOR Mitch Ambrose L janelle [facility] CPT-35602 Level 3 Est. Patient 19:19:37 VOCATIONAL TECHNICAL EDUCATION DIRECTOR Mitch W L janelle [facility] CPT-90137 Level 3 Est. Patient 13:25:53 VOCATIONAL TECHNICAL EDUCATION DIRECTOR Tavo toure MD [facility]-12118 Level 3 Est. Patient 18:17:28 CDT Mitch W L janelle [facility] CPT-26809 Level 3 Est. Patient 15:22:57 CDT Mitch W L janelle [facility] CPT-84186 Level 3 Est. Patient 18:21:50 CDT Mitch W L janelle [facility] CPT-18991 Level 3 Est. Patient 18:20:38 CDT Mitch W L ee [facility]-61162 Level 3 Est. Patient 15:37:55 CDT Mitch W L janelle [facility] CPT-20398 Level 2 Est. Patient 15:54:44 CDT Carmine benton MD [facility]-75999 Level 3 Est. Patient 21:46:01 VOCATIONAL TECHNICAL EDUCATION DIRECTOR Mitch W L janelle [facility] CPT-15620 Level 3 Est. Patient 22:15:50 CDT Mitch W L ee [facility] CPT-37263 Level 3 Est. Patient 10:48:15 CDT Mitch W L ee [facility] CPT-17534 Level 3 Est. Patient 23:20:57 CDT Tavo toure MD [facility] CPT-14044 Level 3 Est. Patient 16:26:13 CDT Mitch luis DO [facility] Procedures Code Procedure Name Date Entry Date Standard Desc ription CPT-57680 No Charge Offi Visit 21:36:07 CDT 1 CPT-81371 Venipuncture Draw Fee 10:13:28 VOCATIONAL TECHNICAL EDUCATION DIRECTOR CPT-66358 Venipuncture Draw Fee 08:31:11 CDT CPT-42146 Aspir/Inject Med Joint 18:17:28 CDT CPT-71395 Venipuncture Draw Fee 10:13:30 CDT CPT-41624 Venipuncture Draw Fee 08:31:43 VOCATIONAL TECHNICAL EDUCATION DIRECTOR CPT-JTINJ Joint Injection 18:34:50 CDT CPT-77440 Knee 3V 12:25:09 CDT CPT-14668 Venipuncture Draw Fee 12:15:57 CDT CPT-060 Medical Surveillance Exam 21:31:43 CDT 2011 CPT-57689 Venipuncture Draw Fee 08:32:05 VOCATIONAL TECHNICAL EDUCATION DIRECTOR CPT-OV Office Visit 18:19:06 CDT
--- OUTSIDE RECORDS SUMMARY | 2020-01-18 11:45 | XMS REPORT | Clinical Summary ---
Author Author Admin, Mitch Leon Organization [facility] Address Unknown Phone Unavailable Allergies, Adverse Reactions, Alerts Allergy Name Reaction Description Start Date Severity Status Pr ovider PENICILLIN HIVES Critical Active Mitch Urbina DO Conditions or Problems Problem Name Problem Code Onset Date Status Entry Date Provider Comment Standard Description Annotate HYPERTENSION 401.9 Active Mitch Urbina DO U nspecified essential hypertension CELLULITIS, GROIN, LEFT 682.2 Resolved Mtich luis DO Cellulitis and abscess of trunk SEROMA 998.13 Resolved Mitch Urbina DO Se mario complicating a procedure HYPERLIPIDEMIA 272.4 Active Renan Hays MD Other and unspecified hyperlipidemia DIABETES, TYPE 2 250.00 Active Renan Hays MD Diabetes mellitus without mention of complication, type II or unspecified type, not stated as uncontrolled FAMILY HISTORY COLON CANCER-MOTHER V16.0 Active 2 Rnean Hays MD Family history of malignant neoplasm [...] Coronary atherosclerosis of unspecified type of vessel, stillaguamish or graft EDEMA 782.3 Resolved Mitch Urbina [...] Instructions Start Date Stop Date Generic Name [facility] Status Provider Patient Instruction GLIMEPIRIDE 4 MG ORAL TABLET 1 tablet by mouth twice daily f or diabetes GLIMEPIRIDE 94996179445 Active Mitch Urbina DO Active GLIMEPIRIDE 2 MG ORAL TABLET 1 po BID GLIMEPI RIDE 31338864583 No Longer Active Mitch Urbina DO Active AMLODIPINE BESYLATE 5 MG ORAL TABLET 1 tablet by mouth daily AMLODIPINE BESYLATE 61512553387 Active Mitch Urbina DO Active PROVIGIL 200 MG ORAL TABLET 1/2 tab po q day MODA FINIL 46946868474 Active Renee Oconnor LPN Active FAMOTIDINE 20 MG ORAL TABLET by mouth twice a day 2017 FAMOTIDINE 26920224178 No Longer Active Mitch Urbina DO Active COLCRYS 0.6 MG ORAL TABLET 1 tab qid prn gout C OLCHICINE 14040468174 No Longer Active Mitch Urbina DO Active KEFLEX 500 MG ORAL CAPSULE 1 po qid CEPHALEXI N 93461331158 No Longer Active Mitch Urbina DO Active LOSARTAN POTASSIUM 100 MG ORAL TABLET 1 pill by mouth daily, for blood pressure LOSARTAN POTASSIUM 65326107626 Active Ana Ocampo Active AMLODIPINE BESYLATE 5 MG ORAL TABLET 1 tablet by mouth daily 201 01/20/04 AMLODIPINE BESYLATE 21605288586 No Longer Active Joe fulton APRN Active MITIGARE 0.6 MG ORAL CAPSULE 2 capsules at onset of go ut pain, then take one capsule at 1 hour if symptoms persist. COLCHICINE 59 263311974 Active Mitch rUbina Active COUMADIN 1 MG ORAL TABLET 2 tabs orally daily with the 5mg tab to equal 7mg daily WARFARIN SODIUM 46434437435 Active Renee Oconnor LPN Active INVOKANA 100 MG ORAL TABLET 1 tablet orally daily CANAGLIFLOZIN 77161362062 Active Renee Quirogamonserrat DE [place] ROSA Active MINOXIDIL 2.5 MG ORAL TABLET 1 tablet daily for high blood press ure MINOXIDIL 32197004377 Active Renee Oconnor SLATE MIXER Active MECLIZINE HCL 25 MG ORAL TABLET 1 po tid 3 days, then 1/2 ta b tid 3 days MECLIZINE HCL 05924989366 No Longer Active Corey SEGURA Active ALLOPURINOL 300 MG ORAL TABLET Take 1 tablet by mouth daily 2012 ALLOPURINOL 31184104343 No Longer Active Corey SEGURA Active CLONIDINE HCL 0.1 MG ORAL TABLET 1 po bid 7 days, then 1/2 t ab po bid 7 days CLONIDINE HCL 39032759992 No Longer Active Coery SEGURA Active COUMADIN 5 MG ORAL TABLET 1 tab PO daily WARFAR IN SODIUM 05289794154 Active Renee Elvin DE [place] ROSA Active COUMADIN 4 MG ORAL TABLET 1 tablet daily WARFAR IN SODIUM 08914239070 No Longer Active Corey SEGURA Active POLYTRIM 25768-0.1 UNIT/ML-% OPHTHALMIC SOLUTION 1 rui p in affected eye every 3 hours while awake x 7 days POLYMYXIN B-TRIMETHOP RIM 25333854939 No Longer Active Corey SEGURA Active LOSARTAN POTASSIUM-HCTZ 100-12.5 MG ORAL TABLET 1 by m outh daily for high blood pressure LOSARTAN POTASSIUM-HCTZ 63205012253 No Longer A ctive Mitch Urbina DO Active LISINOPRIL-HYDROCHLOROTHIAZIDE 20-12.5 MG ORAL TABLET 1 tab by m outh daily LISINOPRIL-HYDROCHLOROTHIAZIDE 71883262741 No Longer Active Mitch Urbina DO Active LISINOPRIL 20 MG ORAL TABLET 1 tab po at HS LIS INOPRIL 80138290345 No Longer Active Mitch Urbina DO Active COUMADIN 5 MG ORAL TABLET 1 by mouth every other day 2 WARFARIN SODIUM 50053821009 No Longer Active Mitch Urbina DO Active COUMADIN 6 MG ORAL TABLET 1 by mouth every other day 2 WARFARIN SODIUM 01263384023 No Longer Active Mitch Urbina DO Active SIMVASTATIN 40 MG ORAL TABLET 1 tab daily at bedtime SIMVASTATIN 96808747252 Active Mitch Urbina DO Active SIMVASTATIN 20 MG ORAL TABLET 1 tab daily at bedtime 2 SIMVASTATIN 15711805552 No Longer Active Mitch Urbina DO Active LOVENOX 100 MG/ML SUBCUTANEOUS SOLUTION One injection twice a da y ENOXAPARIN SODIUM 93199838316 No Longer Active Carmine Yusuf MD Active JANUVIA 50 MG ORAL TABLET Take one by mouth daily SITAGLIPTIN PHOSPHATE 05173675722 Active Renee Oconnoreder DE LA ROSA Active JANUVIA 100 MG ORAL TABLET 1/2 by mouth every day 2011 SITAGLIPTIN PHOSPHATE 01711152687 No Longer Active Bijal Segal RN Acti ve METFORMIN HCL 500 MG ORAL TABLET 2 by mouth twice daily METFORMIN HCL 75096173265 No Longer Active Renee Oconnor LPN Active COLCRYS 0.6 MG ORAL TABLET 1 po q 6 hours prn gout pain COLCHICINE 19645874949 No Longer Active Caimla Reese Active LISINOPRIL 5 MG ORAL TABLET 1 by mouth every day 11/17 LISINOPRIL 70991638940 No Longer Active Nguyen Perez Active KLOR-CON 20 MEQ ORAL PACKET Take one by mouth daily 09/10/08 POTASSIUM CHLORIDE 69483697393 No Longer Active Nguyenmolly Perez Active FUROSEMIDE 40 MG ORAL TABLET 1 by mouth daily F UROSEMIDE 42464937146 No Longer Active Nguyen Ana Active PROVIGIL 100 MG ORAL TABLET Take one by mouth daily 08/20/04 MODAFINIL 33454305223 No Longer Active Mitch Urbina DO Active BACTRIM DS 800-160 MG ORAL TABLET 1 tab by mouth twice daily 201 10/19/09 TRIMETHOPRIM-SULFAMETHOXAZOLE 66982800209 No Longer Active Elian Hays MD Active ADULT ASPIRIN LOW STRENGTH 81 MG ORAL TABLET DISINTEGR ATING 1 by mouth every daily ASPIRIN 37782635793 Active Mitch Urbina DO Ac tive METOPROLOL TARTRATE 50 MG ORAL TABLET 1 by mouth twice daily METOPROLOL TARTRATE 60763626915 Active Anabella Ocampo Activ e BACTRIM DS 800-160 MG ORAL TABLET 1 tab by mouth twice daily 201 10/19/09 BACTRIM DS 800-160 MG ORAL TABLET 390915 TRIMETHOPRIM-SULFAMETHOXAZOLE Inactive PROVIGIL 100 MG ORAL TABLET Take one by mouth daily 08/20/04 PROVIGIL 100 MG ORAL TABLET 660193 MODAFINIL Inactive FUROSEMIDE 40 MG ORAL TABLET 1 by mouth daily FUROSEMIDE 40 MG ORAL TABLET 774068 FUROSEMIDE Inactive KLOR-CON 20 MEQ ORAL PACKET Take one by mouth daily 09/10/08 KLOR- CON 20 MEQ ORAL PACKET 0048582 POTASSIUM CHLORIDE Inactive LISINOPRIL 5 MG ORAL TABLET 1 by mouth every day 11/17 LISINOPRIL 5 MG ORAL TABLET 148001 LISINOPRIL Inactive COLCRYS 0.6 MG ORAL TABLET 1 po q 6 hours prn gout pain COLCRYS 0.6 MG ORAL TABLET 993371 COLCHICINE Inactive JANUVIA 100 MG ORAL TABLET 1/2 by mouth every day 2011 JANUVIA 100 MG ORAL TABLET SITAGLIPTIN PHOSPHATE Inactive SIMVASTATIN 20 MG ORAL TABLET 1 tab daily at bedtime 2 SIMVASTATIN 20 MG ORAL TABLET 880357 SIMVASTATIN Inactive COUMADIN 6 MG ORAL TABLET 1 by mouth every other day 2 COUMADIN 6 MG ORAL TABLET 307255 WARFARIN SODIUM Inactive COUMADIN 5 MG ORAL TABLET 1 by mouth every other day 2 COUMADIN 5 MG ORAL TABLET 496335 WARFARIN SODIUM Inactive LISINOPRIL 20 MG ORAL TABLET 1 tab po at HS LISINOPRIL 20 MG ORAL TABLET 275053 LISINOPRIL Inactive LISINOPRIL-HYDROCHLOROTHIAZIDE 20-12.5 MG ORAL TABLET 1 tab by m outh daily LISINOPRIL-HYDROCHLOROTHIAZIDE 20-12.5 MG ORAL TABLET 177595 LISINOPRIL-HYDROCHLOROTHIAZIDE Inactive POLYTRIM 05628-6.1 UNIT/ML-% OPHTHALMIC SOLUTION 1 rui p in affected eye every 3 hours while awake x 7 days POLYTRIM 1000 0-0.1 UNIT/ML-% OPHTHALMIC SOLUTION 031518 POLYMYXIN B-TRIMETHOPRIM Inactive COUMADIN 4 MG ORAL TABLET 1 tablet daily COUMADIN 4 MG ORAL TABLET 572286 WARFARIN SODIUM Inactive CLONIDINE HCL 0.1 MG ORAL TABLET 1 po bid 7 days, then 1/2 t ab po bid 7 days CLONIDINE HCL 0.1 MG ORAL TABLET 493834 CLONIDIN E HCL Inactive ALLOPURINOL 300 MG ORAL TABLET Take 1 tablet by mouth daily 2012 ALLOPURINOL 300 MG ORAL TABLET 597197 ALLOPURINOL I nactive MECLIZINE HCL 25 MG ORAL TABLET 1 po tid 3 days, then 1/2 ta b tid 3 days MECLIZINE HCL 25 MG ORAL TABLET 585755 MECLIZINE HCL Inactive AMLODIPINE BESYLATE 5 MG ORAL TABLET 1 tablet by mouth daily 201 01/20/04 AMLODIPINE BESYLATE 5 MG ORAL TABLET 692337 AMLODIPINE BESYLATE Inactive KEFLEX 500 MG ORAL CAPSULE 1 po qid K EFLEX 500 MG ORAL CAPSULE 665378 CEPHALEXIN Inactive COLCRYS 0.6 MG ORAL TABLET 1 tab qid prn gout COLCRYS 0.6 MG ORAL TABLET 409822 COLCHICINE Inactive FAMOTIDINE 20 MG ORAL TABLET by mouth twice a day 2017 FAMOTIDINE 20 MG ORAL TABLET 506415 FAMOTIDINE Inactive GLIMEPIRIDE 2 MG ORAL TABLET 1 po BID GLIMEPIRIDE 2 MG ORAL TABLET 102691 GLIMEPIRIDE Inactive LOVENOX 100 MG/ML SUBCUTANEOUS SOLUTION One injection twice a da y LOVENOX 100 MG/ML SUBCUTANEOUS SOLUTION 115071 ENOXAPAR IN SODIUM Inactive Vital Signs Date [...] 4.3-6.0 Encounters Code Encounter Date Provider Facility CPT-83036 [id number] Vst-Est Level IV 10:52:00 FACILITY MAINTENANCE WORKER Stephy Urbina [facility] CPT-66003 Level 3 Est. Patient 18:25:53 CDT Mitch luis [facility] CPT-55793 Level 3 Est. Patient 19:43:34 CDT Mitch luis [facility] CPT-99940 Level 4 Est. Patient 09:30:18 CDT Mitch luis [facility] CPT-94573 Level 3 Est. Patient 15:10:14 CDT Joe kamara [facility] CPT-25284 Level 3 Est. Patient 15:03:46 CDT Joe kamara [facility] CPT-97610 Level 3 Est. Patient 14:21:06 CDT Mitch luis [facility] CPT-28687 Level 3 Est. Patient 14:52:06 CDT Joe kamara [facility] CPT-89479 Level 3 Est. Patient 09:34:30 FACILITY MAINTENANCE WORKER Mitch luis [facility] CPT-18284 Level 3 Est. Patient 09:37:15 CDT Mitch luis [facility] CPT-69748 Level 3 Est. Patient 17:01:00 FACILITY MAINTENANCE WORKER Mitch luis [facility] CPT-29443 Level 3 Est. Patient 13:53:19 FACILITY MAINTENANCE WORKER Mitch luis [facility] CPT-26858 Level 3 Est. Patient 19:19:37 FACILITY MAINTENANCE WORKER Mitch luis [facility] CPT-32636 Level 3 Est. Patient 13:25:53 FACILITY MAINTENANCE WORKER Tavo toure MD [facility] CPT-07635 Level 3 Est. Patient 18:17:28 CDT Mitch Arnol luis [facility] CPT-21448 Level 3 Est. Patient 15:22:57 CDT Mitch Arnol luis [facility] CPT-12352 Level 3 Est. Patient 18:21:50 CDT Mitch luis [facility] CPT-07918 Level 3 Est. Patient 18:20:38 CDT Mitch Arnol luis [facility] CPT-82761 Level 3 Est. Patient 15:37:55 CDT Mitch luis [facility] CPT-65395 Level 2 Est. Patient 15:54:44 CDT Carmine benton MD [facility] CPT-53084 Level 3 Est. Patient 21:46:01 FACILITY MAINTENANCE WORKER Mitch luis [facility] CPT-96391 Level 3 Est. Patient 22:15:50 CDT Mitch luis [facility] CPT-89132 Level 3 Est. Patient 10:48:15 CDT Mitch luis [facility] CPT-29410 Level 3 Est. Patient 23:20:57 CDT Tavo toure MD [facility] CPT-07097 Level 3 Est. Patient 16:26:13 CDT Mitch Castellano janelle [facility] Procedures Code Procedure Name Date Entry Date Standard Desc ription CPT-JTINJ Asp/Joint Injection 18:47:02 CDT CPT-95375 Venipuncture Draw Fee 09:26:17 CDT CPT-16061 PT/INR - LAB USE ONLY 13:32:49 FACILITY MAINTENANCE WORKER CPT-54868 Venipuncture Draw Fee 13:32:49 FACILITY MAINTENANCE WORKER CPT-23880 PT/INR - LAB USE ONLY 10:34:49 FACILITY MAINTENANCE WORKER CPT-20139 Venipuncture Draw Fee 10:34:48 FACILITY MAINTENANCE WORKER CPT-13676 PT/INR - LAB USE ONLY 09:22:03 FACILITY MAINTENANCE WORKER CPT-60366 Venipuncture Draw Fee 09:22:02 FACILITY MAINTENANCE WORKER CPT-62506 Hemoccult IFOBT - LAB USE ONLY 10:27:22 CDT CPT-25448 Venipuncture Draw Fee 08:27:08 CDT CPT-18142 Liver Profile - LAB USE ONLY 08:27:07 CDT 2 CPT-82602 Microalbumin - LAB USE ONLY 08:27:07 CDT 20 25/05/09 CPT-72491 PT/INR - LAB USE ONLY 08:27:07 CDT CPT-64198 HGBA1C - LAB USE ONLY 08:27:07 CDT CPT-53694 CBC - LAB USE ONLY 08:27:07 CDT CPT-13502 Venipuncture Draw Fee 11:09:14 CDT CPT-04635 Venipuncture Draw Fee 08:32:21 FACILITY MAINTENANCE WORKER CPT-64639 Venipuncture Draw Fee 09:38:56 FACILITY MAINTENANCE WORKER CPT-23574 No Charge Offi Visit 21:36:07 CDT 1 CPT-26407 Venipuncture Draw Fee 10:13:28 FACILITY MAINTENANCE WORKER CPT-06294 Venipuncture Draw Fee 08:31:11 CDT CPT-39763 Aspir/Inject Med Joint 18:17:28 CDT CPT-44916 Venipuncture Draw Fee 10:13:30 CDT CPT-10137 Venipuncture Draw Fee 08:31:43 FACILITY MAINTENANCE WORKER CPT-JTINJ Joint Injection 18:34:50 CDT CPT-55091 Knee 3V 12:25:09 CDT CPT-77776 Venipuncture Draw Fee 12:15:57 CDT CPT-060 Medical Surveillance Exam 21:31:43 CDT 2011 CPT-48416 Venipuncture Draw Fee 08:32:05 FACILITY MAINTENANCE WORKER CPT-OV Office Visit 18:19:06 CDT
--- OUTSIDE RECORDS SUMMARY | 2020-01-18 11:45 | XMS REPORT | Clinical Summary ---
Author Author Admin, Mitch Leon Organization [facility] [employer] Address Unknown Phone Unavailable Allergies, Adverse Reactions, [...] Coronary atherosclerosis of unspecified type of vessel, [place] or graft EDEMA 782.3 Resolved Mitch Urbina [...] Instructions Start Date Stop Date Generic Name [facility] Status Provider Patient Instruction GLIMEPIRIDE 4 MG ORAL TABLET 1 tablet by mouth twice daily f or diabetes GLIMEPIRIDE 95595163371 Active Mitch Urbina DO Active GLIMEPIRIDE 2 MG ORAL TABLET 1 po BID GLIMEPI RIDE 74243301040 No Longer Active Mitch Urbina DO Active AMLODIPINE BESYLATE 5 MG ORAL TABLET 1 tablet by mouth daily AMLODIPINE BESYLATE 67660986791 Active Mitch Urbina DO Active PROVIGIL 200 MG ORAL TABLET 1/2 tab po q day MODA FINIL 75060679788 Active Renee Oconnor LPN Active FAMOTIDINE 20 MG ORAL TABLET by mouth twice a day 2017 FAMOTIDINE 42806543213 No Longer Active Mitch Urbina DO Active COLCRYS 0.6 MG ORAL TABLET 1 tab qid prn gout C OLCHICINE 65298550653 No Longer Active Mitch Urbina DO Active KEFLEX 500 MG ORAL CAPSULE 1 po qid CEPHALEXI N 83707543905 No Longer Active Mitch Urbina DO Active LOSARTAN POTASSIUM 100 MG ORAL TABLET 1 pill by mouth daily, for blood pressure LOSARTAN POTASSIUM 88531185135 Active Ana Ocampo Active AMLODIPINE BESYLATE 5 MG ORAL TABLET 1 tablet by mouth daily 201 01/20/04 AMLODIPINE BESYLATE 97262998282 No Longer Active Joe fulton APRN Active MITIGARE 0.6 MG ORAL CAPSULE 2 capsules at onset of go ut pain, then take one capsule at 1 hour if symptoms persist. COLCHICINE 59 873020483 Active Mitch Urbina DO Active COUMADIN 1 MG ORAL TABLET 2 tabs orally daily with the 5mg tab to equal 7mg daily WARFARIN SODIUM 00594791790 Active Renee Oconnor LPN Active INVOKANA 100 MG ORAL TABLET 1 tablet orally daily CANAGLIFLOZIN 09065299433 Active Renee Quirogamonserrat BURNETTN Active MINOXIDIL 2.5 MG ORAL TABLET 1 tablet daily for high blood press ure MINOXIDIL 74449351536 Active Renee Oconnor CHILD PROTECTIVE SERVICES SPECIALIST Active MECLIZINE HCL 25 MG ORAL TABLET 1 po tid 3 days, then 1/2 ta b tid 3 days MECLIZINE HCL 48709241968 No Longer Active Corey SEGURA Active ALLOPURINOL 300 MG ORAL TABLET Take 1 tablet by mouth daily 2012 ALLOPURINOL 98194246215 No Longer Active Corey SEGURA Active CLONIDINE HCL 0.1 MG ORAL TABLET 1 po bid 7 days, then 1/2 t ab po bid 7 days CLONIDINE HCL 33352076969 No Longer Active Corey SEGURA Active COUMADIN 5 MG ORAL TABLET 1 tab PO daily WARFAR IN SODIUM 84321802232 Active Renee Elvin DE LA ROSA Active COUMADIN 4 MG ORAL TABLET 1 tablet daily WARFAR IN SODIUM 26734567617 No Longer Active Corey SEGURA Active POLYTRIM 54284-8.1 UNIT/ML-% OPHTHALMIC SOLUTION 1 rui p in affected eye every 3 hours while awake x 7 days POLYMYXIN B-TRIMETHOP RIM 73237345398 No Longer Active Corey SEGURA Active LOSARTAN POTASSIUM-HCTZ 100-12.5 MG ORAL TABLET 1 by m outh daily for high blood pressure LOSARTAN POTASSIUM-HCTZ 17949129947 No Longer A ctive Mitch Urbina DO Active LISINOPRIL-HYDROCHLOROTHIAZIDE 20-12.5 MG ORAL TABLET 1 tab by m outh daily LISINOPRIL-HYDROCHLOROTHIAZIDE 01857837171 No Longer Active Mitch Urbina DO Active LISINOPRIL 20 MG ORAL TABLET 1 tab po at HS LIS INOPRIL 12661793392 No Longer Active Mitch Urbina DO Active COUMADIN 5 MG ORAL TABLET 1 by mouth every other day 2 WARFARIN SODIUM 33929122789 No Longer Active Mitch Urbina DO Active COUMADIN 6 MG ORAL TABLET 1 by mouth every other day 2 WARFARIN SODIUM 22652263681 No Longer Active Mitch Urbina DO Active SIMVASTATIN 40 MG ORAL TABLET 1 tab daily at bedtime SIMVASTATIN 11137217076 Active Mitch Urbina DO Active SIMVASTATIN 20 MG ORAL TABLET 1 tab daily at bedtime 2 SIMVASTATIN 76227562058 No Longer Active Mitch Urbina DO Active LOVENOX 100 MG/ML SUBCUTANEOUS SOLUTION One injection twice a da y ENOXAPARIN SODIUM 88942906452 No Longer Active Carmine Yusuf MD Active JANUVIA 50 MG ORAL TABLET Take one by mouth daily SITAGLIPTIN PHOSPHATE 09570881898 Active Renee Oconnoreedr DE LA ROSA Active JANUVIA 100 MG ORAL TABLET 1/2 by mouth every day 2011 SITAGLIPTIN PHOSPHATE 69957394118 No Longer Active Bijal Segal RN Acti ve METFORMIN HCL 500 MG ORAL TABLET 2 by mouth twice daily METFORMIN HCL 77654186721 No Longer Active Renee Oconnor LPN Active COLCRYS 0.6 MG ORAL TABLET 1 po q 6 hours prn gout pain COLCHICINE 92865942731 No Longer Active Camila Reese Active LISINOPRIL 5 MG ORAL TABLET 1 by mouth every day 11/17 LISINOPRIL 72128430857 No Longer Active Nguyenmolly Perez Active KLOR-CON 20 MEQ ORAL PACKET Take one by mouth daily 09/10/08 POTASSIUM CHLORIDE 00985947602 No Longer Active Nguyenmolly Perez Active FUROSEMIDE 40 MG ORAL TABLET 1 by mouth daily F UROSEMIDE 50303577395 No Longer Active Nguyen Ana Active PROVIGIL 100 MG ORAL TABLET Take one by mouth daily 08/20/04 MODAFINIL 49763094987 No Longer Active Mitch Urbina DO Active BACTRIM DS 800-160 MG ORAL TABLET 1 tab by mouth twice daily 201 10/19/09 TRIMETHOPRIM-SULFAMETHOXAZOLE 51823357568 No Longer Active Elian Hays MD Active ADULT ASPIRIN LOW STRENGTH 81 MG ORAL TABLET DISINTEGR ATING 1 by mouth every daily ASPIRIN 18624321837 Active Mitch Urbina DO Ac tive METOPROLOL TARTRATE 50 MG ORAL TABLET 1 by mouth twice daily METOPROLOL TARTRATE 89015430921 Active Ana Terrence Activ e BACTRIM DS 800-160 MG ORAL TABLET 1 tab by mouth twice daily 201 10/19/09 BACTRIM DS 800-160 MG ORAL TABLET 209167 TRIMETHOPRIM-SULFAMETHOXAZOLE Inactive PROVIGIL 100 MG ORAL TABLET Take one by mouth daily 08/20/04 PROVIGIL 100 MG ORAL TABLET 670262 MODAFINIL Inactive FUROSEMIDE 40 MG ORAL TABLET 1 by mouth daily FUROSEMIDE 40 MG ORAL TABLET 821687 FUROSEMIDE Inactive KLOR-CON 20 MEQ ORAL PACKET Take one by mouth daily 09/10/08 KLOR- CON 20 MEQ ORAL PACKET 9242441 POTASSIUM CHLORIDE Inactive LISINOPRIL 5 MG ORAL TABLET 1 by mouth every day 11/17 LISINOPRIL 5 MG ORAL TABLET 507985 LISINOPRIL Inactive COLCRYS 0.6 MG ORAL TABLET 1 po q 6 hours prn gout pain COLCRYS 0.6 MG ORAL TABLET 516345 COLCHICINE Inactive JANUVIA 100 MG ORAL TABLET 1/2 by mouth every day 2011 JANUVIA 100 MG ORAL TABLET SITAGLIPTIN PHOSPHATE Inactive SIMVASTATIN 20 MG ORAL TABLET 1 tab daily at bedtime 2 SIMVASTATIN 20 MG ORAL TABLET 417064 SIMVASTATIN Inactive COUMADIN 6 MG ORAL TABLET 1 by mouth every other day 2 COUMADIN 6 MG ORAL TABLET 867137 WARFARIN SODIUM Inactive COUMADIN 5 MG ORAL TABLET 1 by mouth every other day 2 COUMADIN 5 MG ORAL TABLET 163726 WARFARIN SODIUM Inactive LISINOPRIL 20 MG ORAL TABLET 1 tab po at HS LISINOPRIL 20 MG ORAL TABLET 209319 LISINOPRIL Inactive LISINOPRIL-HYDROCHLOROTHIAZIDE 20-12.5 MG ORAL TABLET 1 tab by m outh daily LISINOPRIL-HYDROCHLOROTHIAZIDE 20-12.5 MG ORAL TABLET 988797 LISINOPRIL-HYDROCHLOROTHIAZIDE Inactive POLYTRIM 09350-7.1 UNIT/ML-% OPHTHALMIC SOLUTION 1 rui p in affected eye every 3 hours while awake x 7 days POLYTRIM 1000 0-0.1 UNIT/ML-% OPHTHALMIC SOLUTION 942219 POLYMYXIN B-TRIMETHOPRIM Inactive COUMADIN 4 MG ORAL TABLET 1 tablet daily COUMADIN 4 MG ORAL TABLET 846780 WARFARIN SODIUM Inactive CLONIDINE HCL 0.1 MG ORAL TABLET 1 po bid 7 days, then 1/2 t ab po bid 7 days CLONIDINE HCL 0.1 MG ORAL TABLET 177935 CLONIDIN E HCL Inactive ALLOPURINOL 300 MG ORAL TABLET Take 1 tablet by mouth daily 2012 ALLOPURINOL 300 MG ORAL TABLET 592377 ALLOPURINOL I nactive MECLIZINE HCL 25 MG ORAL TABLET 1 po tid 3 days, then 1/2 ta b tid 3 days MECLIZINE HCL 25 MG ORAL TABLET 752381 MECLIZINE HCL Inactive AMLODIPINE BESYLATE 5 MG ORAL TABLET 1 tablet by mouth daily 201 01/20/04 AMLODIPINE BESYLATE 5 MG ORAL TABLET 724441 AMLODIPINE BESYLATE Inactive KEFLEX 500 MG ORAL CAPSULE 1 po qid K EFLEX 500 MG ORAL CAPSULE 211345 CEPHALEXIN Inactive COLCRYS 0.6 MG ORAL TABLET 1 tab qid prn gout COLCRYS 0.6 MG ORAL TABLET 042994 COLCHICINE Inactive FAMOTIDINE 20 MG ORAL TABLET by mouth twice a day 2017 FAMOTIDINE 20 MG ORAL TABLET 230932 FAMOTIDINE Inactive GLIMEPIRIDE 2 MG ORAL TABLET 1 po BID GLIMEPIRIDE 2 MG ORAL TABLET 484096 GLIMEPIRIDE Inactive LOVENOX 100 MG/ML SUBCUTANEOUS SOLUTION One injection twice a da y LOVENOX 100 MG/ML SUBCUTANEOUS SOLUTION 253405 ENOXAPAR IN SODIUM Inactive Vital Signs Date [...] 4.3-6.0 Encounters Code Encounter Date Provider Facility CPT-27691 [id number] Vst-Est Level IV 10:52:00 MEDICAL AND SCIENTIFIC ILLUSTRATOR Stephy Urbina [facility] CPT-28639 Level 3 Est. Patient 18:25:53 CDT Mitch luis [facility] CPT-91099 Level 3 Est. Patient 19:43:34 CDT Mitch luis [facility] CPT-21329 Level 4 Est. Patient 09:30:18 CDT Mitch luis [facility] CPT-31668 Level 3 Est. Patient 15:10:14 CDT Joe kamara [facility] CPT-78797 Level 3 Est. Patient 15:03:46 CDT Joe kamara [facility] CPT-58607 Level 3 Est. Patient 14:21:06 CDT Mitch luis [facility] CPT-17598 Level 3 Est. Patient 14:52:06 CDT Joe kamara [facility] CPT-78822 Level 3 Est. Patient 09:34:30 MEDICAL AND SCIENTIFIC ILLUSTRATOR Mitch luis [facility] CPT-92390 Level 3 Est. Patient 09:37:15 CDT Mitch luis [facility] CPT-40749 Level 3 Est. Patient 17:01:00 MEDICAL AND SCIENTIFIC ILLUSTRATOR Mitch luis [facility] CPT-81572 Level 3 Est. Patient 13:53:19 MEDICAL AND SCIENTIFIC ILLUSTRATOR Mitch luis [facility] CPT-71392 Level 3 Est. Patient 19:19:37 MEDICAL AND SCIENTIFIC ILLUSTRATOR Mitch luis [facility] CPT-87950 Level 3 Est. Patient 13:25:53 MEDICAL AND SCIENTIFIC ILLUSTRATOR Tavo toure MD [facility] CPT-15492 Level 3 Est. Patient 18:17:28 CDT Mitch Arnol luis [facility] CPT-04458 Level 3 Est. Patient 15:22:57 CDT Mitch Arnol luis [facility] CPT-90598 Level 3 Est. Patient 18:21:50 CDT Mitch luis [facility] CPT-37235 Level 3 Est. Patient 18:20:38 CDT Mitch Arnol luis [facility] CPT-20086 Level 3 Est. Patient 15:37:55 CDT Mitch luis [facility] CPT-42841 Level 2 Est. Patient 15:54:44 CDT Carmine benton MD [facility] CPT-83444 Level 3 Est. Patient 21:46:01 MEDICAL AND SCIENTIFIC ILLUSTRATOR Mitch luis [facility] CPT-65803 Level 3 Est. Patient 22:15:50 CDT Mitch luis [facility] CPT-72198 Level 3 Est. Patient 10:48:15 CDT Mitch luis [facility] CPT-57882 Level 3 Est. Patient 23:20:57 CDT Tavo toure MD [facility] CPT-00808 Level 3 Est. Patient 16:26:13 CDT Mitch Castellano janelle [facility] Procedures Code Procedure Name Date Entry Date Standard Desc ription CPT-JTINJ Asp/Joint Injection 18:47:02 CDT CPT-16611 Venipuncture Draw Fee 09:26:17 CDT CPT-59009 PT/INR - LAB USE ONLY 13:32:49 MEDICAL AND SCIENTIFIC ILLUSTRATOR CPT-20362 Venipuncture Draw Fee 13:32:49 MEDICAL AND SCIENTIFIC ILLUSTRATOR CPT-00690 PT/INR - LAB USE ONLY 10:34:49 MEDICAL AND SCIENTIFIC ILLUSTRATOR CPT-54739 Venipuncture Draw Fee 10:34:48 MEDICAL AND SCIENTIFIC ILLUSTRATOR CPT-41211 PT/INR - LAB USE ONLY 09:22:03 MEDICAL AND SCIENTIFIC ILLUSTRATOR CPT-95652 Venipuncture Draw Fee 09:22:02 MEDICAL AND SCIENTIFIC ILLUSTRATOR CPT-72529 Hemoccult IFOBT - LAB USE ONLY 10:27:22 CDT CPT-52637 Venipuncture Draw Fee 08:27:08 CDT CPT-07782 Liver Profile - LAB USE ONLY 08:27:07 CDT 2 CPT-65536 Microalbumin - LAB USE ONLY 08:27:07 CDT 20 25/05/09 CPT-75461 PT/INR - LAB USE ONLY 08:27:07 CDT CPT-59224 HGBA1C - LAB USE ONLY 08:27:07 CDT CPT-35734 CBC - LAB USE ONLY 08:27:07 CDT CPT-78578 Venipuncture Draw Fee 11:09:14 CDT CPT-26207 Venipuncture Draw Fee 08:32:21 MEDICAL AND SCIENTIFIC ILLUSTRATOR CPT-02791 Venipuncture Draw Fee 09:38:56 MEDICAL AND SCIENTIFIC ILLUSTRATOR CPT-65322 No Charge Offi Visit 21:36:07 CDT 1 CPT-73671 Venipuncture Draw Fee 10:13:28 MEDICAL AND SCIENTIFIC ILLUSTRATOR CPT-31410 Venipuncture Draw Fee 08:31:11 CDT CPT-37071 Aspir/Inject Med Joint 18:17:28 CDT CPT-39292 Venipuncture Draw Fee 10:13:30 CDT CPT-58313 Venipuncture Draw Fee 08:31:43 MEDICAL AND SCIENTIFIC ILLUSTRATOR CPT-JTINJ Joint Injection 18:34:50 CDT CPT-66276 Knee 3V 12:25:09 CDT CPT-57242 Venipuncture Draw Fee 12:15:57 CDT CPT-060 Medical Surveillance Exam 21:31:43 CDT 2011 CPT-31480 Venipuncture Draw Fee 08:32:05 MEDICAL AND SCIENTIFIC ILLUSTRATOR CPT-OV Office Visit 18:19:06 CDT
--- OUTSIDE RECORDS SUMMARY | 2020-01-18 11:46 | XMS REPORT | Clinical Summary ---
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 ( 6mg total ) 2015 WARFARIN SODIUM 36497422184 Active Jannette Alcides RMA Act juan INVOKANA 100 MG ORAL TABS 1 tablet orally daily CANAGLIFLOZIN 74790165447 Active Kathie Juan RPT,RMA Active MINOXIDIL 2.5 MG TABS 1 tablet daily for high blood pressure 10/23 MINOXIDIL 54844293878 Active Mitch Urbina DO Active AMLODIPINE BESYLATE 5 MG TABS 1 tablet by mouth daily AMLODIPINE BESYLATE 78142136312 Active Domi Rivera MA Active MECLIZINE HCL 25 MG TAB 1 po tid 3 days, then 1/2 tab tid 3 days MECLIZINE HCL 11843638981 No Longer Active Corey SEGURA Active ALLOPURINOL 300 MG TABS Take 1 tablet by mouth daily 2 ALLOPURINOL 66504011010 No Longer Active Corey SEGURA Activ e CLONIDINE HCL 0.1 MG TABS 1 po bid 7 days, then 1/2 tab po b id 7 days CLONIDINE HCL 01286238198 No Longer Active Corey SEGURA Active COUMADIN 5 MG TABS 1 tab PO daily WARFARIN SODIUM 03724301972 Active Domi Rivera MA Active COUMADIN 4 MG TABS 1 tablet daily WARFARIN SODI UM 43972464169 No Longer Active Corey SEGURA Active POLYTRIM 37201-4.1 UNIT/ML-% SOLN 1 drop in affected e ye every 3 hours while awake x 7 days POLYMYXIN B-TRIMETHOPRIM 78145223505 N o Longer Active Corey SEGURA Active LOSARTAN POTASSIUM-HCTZ 100-12.5 MG TABS 1 by mouth da rocky for high blood pressure LOSARTAN POTASSIUM-HCTZ 84114146431 Active Domi Rivera MA Active LISINOPRIL-HYDROCHLOROTHIAZIDE 20-12.5 MG TABS 1 tab by mouth da rocky LISINOPRIL-HYDROCHLOROTHIAZIDE 52558489648 No Longer Active Mitch luis DO Active LISINOPRIL 20 MG TABS 1 tab po at HS LISINOPRIL 19846957975 No Longer Active Micth Urbina DO Active COUMADIN 5 MG TABS 1 by mouth every other day WARFARIN SODIUM 05232289050 No Longer Active Mitch Urbina DO Active COUMADIN 6 MG TABS 1 by mouth every other day WARFARIN SODIUM 39260675583 No Longer Active Mitch Urbina DO Active COLCRYS 0.6 MG TABS 1 tab qid prn gout COLCHICINE 37978972784 Active Corey SEGURA Active SIMVASTATIN 40 MG TABS 1 tab daily at bedtime S IMVASTATIN 13875988499 Active Domi Rievra MA Active SIMVASTATIN 20 MG TABS 1 tab daily at bedtime S IMVASTATIN 76322474542 No Longer Active Mitch Urbina DO Active LOVENOX 100 MG/ML SC SOLN One injection twice a day 09/15/15 ENOXAPARIN SODIUM 32814519606 No Longer Active Carmine Navarrete ctive JANUVIA 50 MG TABS Take one by mouth daily DIEGO GLIPTIN PHOSPHATE 81432841797 Active Domi Rivera MA Active JANUVIA 100 MG TABS 1/2 by mouth every day DIEGO GLIPTIN PHOSPHATE 07481742303 No Longer Active Bijal Segal RN Active METFORMIN HCL 500 MG TABS 2 by mouth twice daily METFORMIN HCL 25931195192 Active Domi Rivera MA Active GLIMEPIRIDE 4 MG TABS 1 tab po bid GLIMEPIRIDE 405647 17971 Active Domi Rivera MA Active COLCRYS 0.6 MG TABS 1 po q 6 hours prn gout pain 03/02 COLCHICINE 02224118223 No Longer Active Camila Reese Active LISINOPRIL 5 MG TABS 1 by mouth every day LISIN OPRIL 45449660603 No Longer Active Nguyen Perez Active KLOR-CON 20 MEQ PACK Take one by mouth daily 8 POTASSIUM CHLORIDE 53130801376 No Longer Active Nguyen Perez Active FUROSEMIDE 40 MG TABS 1 by mouth daily FUROSEMI DE 09379240801 No Longer Active Nguyenmolly Perez Active PROVIGIL 200 MG TABS 1/2 tab po q day MODAFINIL 27713 718997 Active Domi Rivera MA Active PROVIGIL 100 MG TABS Take one by mouth daily MO DAFINIL 68746227767 No Longer Active Mitch Urbina DO Active BACTRIM DS 800-160 MG TAB 1 tab by mouth twice daily 2 TRIMETHOPRIM-SULFAMETHOXAZOLE 21640690154 No Longer Active Renan Hays MD Active FAMOTIDINE 20 MG TABS by mouth twice a day FAMOTI DINE 80754248640 Active Mitch Urbina DO Active ADULT ASPIRIN LOW STRENGTH 81 MG TBDP 1 by mouth every daily ASPIRIN 50110569814 Active Mitch Urbina DO Active METOPROLOL TARTRATE 50 MG TABS 1 by mouth twice daily METOPROLOL TARTRATE 34337422347 Active Domi Rivera MA Active BACTRIM DS 800-160 MG TAB 1 tab by mouth twice daily 2 BACTRIM DS 800-160 MG TAB 599073 TRIMETHOPRIM-SULFAMETHOXAZOLE Inac tive PROVIGIL 100 MG TABS Take one by mouth daily 4 PROVIGIL 100 MG TABS 379228 MODAFINIL Inactive FUROSEMIDE 40 MG TABS 1 by mouth daily FU ROSEMIDE 40 MG TABS 340630 FUROSEMIDE Inactive KLOR-CON 20 MEQ PACK Take one by mouth daily 8 KLOR-CON 20 MEQ PACK 819279 POTASSIUM CHLORIDE Inactive LISINOPRIL 5 MG TABS 1 by mouth every day LISINOPRIL 5 MG TABS 742597 LISINOPRIL Inactive COLCRYS 0.6 MG TABS 1 po q 6 hours prn gout pain 03/02 COLCRYS 0.6 MG TABS 494121 COLCHICINE Inactive JANUVIA 100 MG TABS 1/2 by mouth every day JANUVI A 100 MG TABS SITAGLIPTIN PHOSPHATE Inactive SIMVASTATIN 20 MG TABS 1 tab daily at bedtime SIMVASTATIN 20 MG TABS 544511 SIMVASTATIN Inactive COUMADIN 6 MG TABS 1 by mouth every other day COUMADIN 6 MG TABS 859336 WARFARIN SODIUM Inactive COUMADIN 5 MG TABS 1 by mouth every other day COUMADIN 5 MG TABS 496873 WARFARIN SODIUM Inactive LISINOPRIL 20 MG TABS 1 tab po at HS KOKI NOPRIL 20 MG TABS 285867 LISINOPRIL Inactive LISINOPRIL-HYDROCHLOROTHIAZIDE 20-12.5 MG TABS 1 tab by mouth da rocky LISINOPRIL-HYDROCHLOROTHIAZIDE 20-12.5 MG TABS 676704 LISINOPRIL-HYDROCHLOROTHIAZIDE Inactive POLYTRIM 54352-1.1 UNIT/ML-% SOLN 1 drop in affected e ye every 3 hours while awake x 7 days POLYTRIM 94555-1.1 UNIT/ML-% SOLN 11515 7 POLYMYXIN B-TRIMETHOPRIM Inactive COUMADIN 4 MG TABS 1 tablet daily COUMADIN 4 MG TABS 833117 WARFARIN SODIUM Inactive CLONIDINE HCL 0.1 MG TABS 1 po bid 7 days, then 1/2 tab po b id 7 days CLONIDINE HCL 0.1 MG TABS 390367 CLONIDINE HCL I nactive ALLOPURINOL 300 MG TABS Take 1 tablet by mouth daily 2 ALLOPURINOL 300 MG TABS 493489 ALLOPURINOL Inactive MECLIZINE HCL 25 MG TAB 1 po tid 3 days, then 1/2 tab tid 3 days MECLIZINE HCL 25 MG TAB 848491 MECLIZINE HCL Inactive LOVENOX 100 MG/ML SC SOLN One injection twice a day 20 09/15/15 LOVENOX 100 MG/ML SC SOLN 639358 ENOXAPARIN SODIUM Inactive Vital Signs Date Name Value Unit Range Description blood pressure, diastolic - 8462-4 82 mm[Hg] BP mane blood pressure, systolic - 8480-6 178 mm[Hg] BP sys pulse rate E&M - 8867-4 77 /min H eart rate temperature E&M 98.3 [degF] Body temp erature weight E&M - 3141-9 240.5 [lb_av] Weigh t Measured blood pressure, diastolic [...] - 3141-9 234 [lb_av] Weigh t Measured Diagnostic Results Date Name Value Unit Range Description Chart Maintenance: Hemoccult added to [facility] - Chemistry occult blood, stool (E&M) Positive [...] count 276 10^3/MM^3 10*3/mm3 142-424 Lab Report: CBC W/DIFF - Hematology hemoglobin, blood 13.0 g/dL 13.5-17.5 hematocrit, blood 39.5 % 41.0-53.0 mean corpuscular volume, RBC 82 fL 80-97 mean corpuscular hemoglobin, RBC 27.0 pg 27. 0-31.2 mean corpuscular hemoglobin concentration, RBC 33.0 G/DL % 31.8-35.4 red blood cell distribution width 17.2 % 11 .6-14.8 platelet count 283 10^3/MM^3 10*3/mm3 378-402 9950/03/27 erythrocyte (RBC) count 4.83 10^6/MM^3 10*6/mm3 4.69-6.1 3 lymphocytes as percent of blood leukocytes 19.7 % 20.5-51.1 monocytes as percent of blood leukocytes 7.3 % 1.7-9.3 neutrophils as percent of blood leukocytes 69.3 % 42.2-75.2 leukocyte count, blood 6.2 10^3/MM^3 10*3/mm3 4.6-10.2 Lab Report: CBC, Comp. Metabolic Panel, Prostatic Specific Ag - Chemistry sodium, serum 141 mmol/L 669-738 6597/07/06 potassium, serum 4.4 mmol/L 3.5-5.2 chloride, serum [...] - Chem istry sodium, serum 136 mmol/L 651-609 3816/01/14 carbon dioxide, venous blood 25.4 mmol/L 21.0-32 [...] 7.0 % 4.3-6.0 cholesterol, serum 120 mg/dL 865-991 0298/07/06 triglyceride, serum, fasting 186 mg/dL 30-200 HDL cholesterol, serum 34 mg/dL 32-96 LDL cholesterol, serum 49 mg/dL 0-130 Lab Report: HGBA1C, Prothrombin Time - C hemistry hemoglobin A1C, blood, as % of total hemoglobin 7.9 % 4.3-6.0 Lab Report: HGBA1C, Prothrombin Time - C oagulation prothrombin time (patient) 17.5 SECS s 11.1-13.4 international normalized ratio (INR) 2.1 1.0-3.5 Lab Report: MICROALBUMIN - Chemistry albumin/creatinine ratio, urine < 30 mg/g mg/g{creat} 0-2 9 Lab Report: MICROALBUMIN - Lab microalbumin, urine 30 0-19 Lab Report: Prothrombin Time - Coagulati on prothrombin time (patient) 18.6 SECS s 11.1-13.4 international normalized ratio (INR) 2.3 1.0-3.5 prothrombin time (patient) 18.1 SECS s 11.1-13.4 international normalized ratio (INR) 2.2 1.0-3.5 prothrombin time (patient) 20.1 SECS s 11.1-13.4 international normalized ratio (INR) 2.6 1.0-3.5 prothrombin time (patient) 17.1 SECS s 11.1-13.4 international normalized ratio (INR) 2.0 1.0-3.5 prothrombin time (patient) 18.9 SECS s 11.1-13.4 international normalized ratio (INR) 2.4 1.0-3.5 prothrombin time (patient) 14.5 SECS s 11.1-13.4 international normalized ratio (INR) 1.5 1.0-3.5 Encounters Code Encounter Date Provider Facility CPT-29659 Level 3 Est. Patient 09:34:30 MAJ[employer] APPL[employer]ANCE [employer]SEM[employer] SUPERVISOR Mitch luis [facility] CPT-86396 Level 3 Est. Patient 09:37:15 CDT Mitch luis [facility] CPT-39552 Level 3 Est. Patient 17:01:00 MAJ[employer] APPLIANCE [employer]SEMBL[employer] SUPERVISOR Mitch luis [facility] CPT-93158 Level 3 Est. Patient 13:53:19 MAJOR APPLIANCE ASSEMBLY SUPERVISOR Mitch luis [facility] CPT-11034 Level 3 Est. Patient 19:19:37 MAJOR APPLIANCE ASSEMBLY SUPERVISOR Mitch luis [facility] CPT-75659 Level 3 Est. Patient 13:25:53 MAJOR APPLIANCE ASSEMBLY SUPERVISOR Tavo toure MD [facility]-18994 Level 3 Est. Patient 18:17:28 CDT Mitch luis [facility] CPT-13276 Level 3 Est. Patient 15:22:57 CDT Mitch luis [facility] CPT-13654 Level 3 Est. Patient 18:21:50 CDT Mitch luis [facility] CPT-83782 Level 3 Est. Patient 18:20:38 CDT Mitch luis [facility] CPT-00505 Level 3 Est. Patient 15:37:55 CDT Mitch luis [facility] CPT-32966 Level 2 Est. Patient 15:54:44 CDT Carmine benton MD [facility]-23731 Level 3 Est. Patient 21:46:01 MAJ[employer]PLIANCE [employer]SEMBL[employer] SUPERVISOR Mitch luis [facility] CPT-78788 Level 3 Est. Patient 22:15:50 CDT Mitch Arnol L janelle [facility] CPT-56190 Level 3 Est. Patient 10:48:15 CDT Mitch luis [facility] CPT-81256 Level 3 Est. Patient 23:20:57 CDT Tavo toure MD [facility] CPT-18563 Level 3 Est. 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 CPT-93195 No Charge Offi Visit 21:36:07 CDT 1 CPT-92589 Venipuncture Draw Fee 10:13:28 MAJ[employer]ANCE [employer]SEM[employer] SUPERVISOR CPT-86693 Venipuncture Draw Fee 08:31:11 CDT CPT-92420 Aspir/Inject Med Joint 18:17:28 CDT CPT-43000 Venipuncture Draw Fee 10:13:30 CDT CPT-07352 Venipuncture Draw Fee 08:31:43 MAJ[employer]IANCE [employer]SEM[employer] SUPERVISOR CPT-JTINJ Joint Injection 18:34:50 CDT CPT-17437 Knee 3V 12:25:09 CDT CPT-82743 Venipuncture Draw Fee 12:15:57 CDT CPT-060 Medical Surveillance Exam 21:31:43 CDT 2011 CPT-90978 Venipuncture Draw Fee 08:32:05 MAJ[employer]PLIANCE [employer]SEM[employer] SUPERVISOR CPT-OV Office Visit 18:19:06 CDT
--- OUTSIDE RECORDS SUMMARY | 2020-01-18 11:46 | XMS REPORT | Clinical Summary ---
Author Author Admin, Mitch Leon Organization [facility] [employer] Address Unknown Phone Unavailable Allergies, Adverse Reactions, [...] Coronary atherosclerosis of unspecified type of vessel, white earth or graft EDEMA 782.3 Resolved Mitch Urbina [...] BURSITIS, RIGHT 726.33 Resolved Br uce Arnol Carlitos DO Olecranon bursitis UNSPECIFIED ANEMIA 285.9 Resolved Mitch W Carlitos DO Anemia, unspecified Malaise and fatigue 780.79 Resolved Mitch Arnol Carlitos D O Other malaise and fatigue Cough, [...] Valve replacement V43.3 Active Mitch Arnol Carlitos DO Heart valve replaced by other means [...] Provider Patient Instruction GLIMEPIRIDE 2 MG ORAL TABLET 1 po BID GLIMEPIRID E 08366867190 Active Renee Oconnor LPN Active KEFLEX 500 MG ORAL CAPSULE 1 po qid CEPHALEXI N 53793269380 No Longer Active Mitch Urbina DO Active LOSARTAN POTASSIUM 100 MG ORAL TABLET 1 pill by mouth daily, for blood pressure LOSARTAN POTASSIUM 66492247213 Active Ana Wallace Active AMLODIPINE BESYLATE 5 MG ORAL TABLET 1 tablet by mouth daily 201 01/20/04 AMLODIPINE BESYLATE 28163768477 No Longer Active Joe fulton APRN Active MITIGARE 0.6 MG ORAL CAPSULE 2 capsules at onset of go ut pain, then take one capsule at 1 hour if symptoms persist. COLCHICINE 59 145535061 Active Mitch Urbina DO Active COUMADIN 1 MG ORAL TABLET 2 tabs orally daily with the 5mg tab to equal 7mg daily WARFARIN SODIUM 32542646871 Active Ana Wallace Active COLCRYS 0.6 MG ORAL TABLET 1 tab qid prn gout C OLCHICINE 34545404037 Active Norma Cazares Active INVOKANA 100 MG ORAL TABLET 1 tablet orally daily CANAGLIFLOZIN 13769226083 Active Mitch Urbina DO Active MINOXIDIL 2.5 MG ORAL TABLET 1 tablet daily for high blood press ure MINOXIDIL 64965611253 Active Mitch Urbina DO Active MECLIZINE HCL 25 MG ORAL TABLET 1 po tid 3 days, then 1/2 ta b tid 3 days MECLIZINE HCL 99021518737 No Longer Active Corey SEGURA Active ALLOPURINOL 300 MG ORAL TABLET Take 1 tablet by mouth daily 2012 ALLOPURINOL 65606676851 No Longer Active Corey SEGURA Active CLONIDINE HCL 0.1 MG ORAL TABLET 1 po bid 7 days, then 1/2 t ab po bid 7 days CLONIDINE HCL 37350131360 No Longer Active Corey SEGURA Active COUMADIN 5 MG ORAL TABLET 1 tab PO daily WARFAR IN SODIUM 79090193453 Active Mitch Urbina DO Active COUMADIN 4 MG ORAL TABLET 1 tablet daily WARFAR IN SODIUM 64544587706 No Longer Active Corey SEGURA Active POLYTRIM 42348-1.1 UNIT/ML-% OPHTHALMIC SOLUTION 1 rui p in affected eye every 3 hours while awake x 7 days POLYMYXIN B-TRIMETHOP RIM 83090040483 No Longer Active Corey SEGURA Active LOSARTAN POTASSIUM-HCTZ 100-12.5 MG ORAL TABLET 1 by m outh daily for high blood pressure LOSARTAN POTASSIUM-HCTZ 69041194436 No Longer A ctive Mitch Urbina DO Active LISINOPRIL-HYDROCHLOROTHIAZIDE 20-12.5 MG ORAL TABLET 1 tab by m outh daily LISINOPRIL-HYDROCHLOROTHIAZIDE 37752666465 No Longer Active Mitch Urbina DO Active LISINOPRIL 20 MG ORAL TABLET 1 tab po at HS LIS INOPRIL 86902699354 No Longer Active Mitch Urbina DO Active COUMADIN 5 MG ORAL TABLET 1 by mouth every other day 2 WARFARIN SODIUM 33331001899 No Longer Active Mitch Urbina DO Active COUMADIN 6 MG ORAL TABLET 1 by mouth every other day 2 WARFARIN SODIUM 56118622295 No Longer Active Mitch Urbina DO Active SIMVASTATIN 40 MG ORAL TABLET 1 tab daily at bedtime SIMVASTATIN 31481885054 Active Mitch Urbina DO Active SIMVASTATIN 20 MG ORAL TABLET 1 tab daily at bedtime 2 SIMVASTATIN 72818935078 No Longer Active Mitch Urbina DO Active LOVENOX 100 MG/ML SUBCUTANEOUS SOLUTION One injection twice a da y ENOXAPARIN SODIUM 84956016424 No Longer Active Carmine Yusuf MD Active JANUVIA 50 MG ORAL TABLET Take one by mouth daily SITAGLIPTIN PHOSPHATE 38929615081 Active Mitch Urbina DO Active JANUVIA 100 MG ORAL TABLET 1/2 by mouth every day 2011 SITAGLIPTIN PHOSPHATE 79132906798 No Longer Active Bijal Segal RN Acti ve METFORMIN HCL 500 MG ORAL TABLET 2 by mouth twice daily METFORMIN HCL 96274401006 Active Mitch Urbina DO Active COLCRYS 0.6 MG ORAL TABLET 1 po q 6 hours prn gout pain COLCHICINE 69142479862 No Longer Active Camila Reese Active LISINOPRIL 5 MG ORAL TABLET 1 by mouth every day 11/17 LISINOPRIL 20547868890 No Longer Active Nguyen Perez Active KLOR-CON 20 MEQ ORAL PACKET Take one by mouth daily 09/10/08 POTASSIUM CHLORIDE 76998209843 No Longer Active Nguyen Perez Active FUROSEMIDE 40 MG ORAL TABLET 1 by mouth daily F UROSEMIDE 27864999815 No Longer Active Nguyen Perez Active PROVIGIL 200 MG ORAL TABLET 1/2 tab po q day MODA FINIL 02483239878 Active Ana Wallace Active PROVIGIL 100 MG ORAL TABLET Take one by mouth daily 08/20/04 MODAFINIL 86035054692 No Longer Active Mitch Urbina DO Active BACTRIM DS 800-160 MG ORAL TABLET 1 tab by mouth twice daily 201 10/19/09 TRIMETHOPRIM-SULFAMETHOXAZOLE 49915170986 No Longer Active Elian Hays MD Active FAMOTIDINE 20 MG ORAL TABLET by mouth twice a day FAMOTIDINE 24594059372 Active Mitch Urbina DO Active ADULT ASPIRIN LOW STRENGTH 81 MG ORAL TABLET DISINTEGR ATING 1 by mouth every daily ASPIRIN 46871067004 Active Mitch Urbina DO Ac tive METOPROLOL TARTRATE 50 MG ORAL TABLET 1 by mouth twice daily METOPROLOL TARTRATE 46391707711 Active Mitch Urbina DO Active BACTRIM DS 800-160 MG ORAL TABLET 1 tab by mouth twice daily 201 10/19/09 BACTRIM DS 800-160 MG ORAL TABLET 831198 TRIMETHOPRIM-SULFAMETHOXAZOLE Inactive PROVIGIL 100 MG ORAL TABLET Take one by mouth daily 08/20/04 PROVIGIL 100 MG ORAL TABLET 437904 MODAFINIL Inactive FUROSEMIDE 40 MG ORAL TABLET 1 by mouth daily FUROSEMIDE 40 MG ORAL TABLET 376996 FUROSEMIDE Inactive KLOR-CON 20 MEQ ORAL PACKET Take one by mouth daily 09/10/08 KLOR- CON 20 MEQ ORAL PACKET 4306047 POTASSIUM CHLORIDE Inactive LISINOPRIL 5 MG ORAL TABLET 1 by mouth every day 11/17 LISINOPRIL 5 MG ORAL TABLET 248899 LISINOPRIL Inactive COLCRYS 0.6 MG ORAL TABLET 1 po q 6 hours prn gout pain COLCRYS 0.6 MG ORAL TABLET 408646 COLCHICINE Inactive JANUVIA 100 MG ORAL TABLET 1/2 by mouth every day 2011 JANUVIA 100 MG ORAL TABLET SITAGLIPTIN PHOSPHATE Inactive SIMVASTATIN 20 MG ORAL TABLET 1 tab daily at bedtime 2 SIMVASTATIN 20 MG ORAL TABLET 660227 SIMVASTATIN Inactive COUMADIN 6 MG ORAL TABLET 1 by mouth every other day 2 COUMADIN 6 MG ORAL TABLET 165577 WARFARIN SODIUM Inactive COUMADIN 5 MG ORAL TABLET 1 by mouth every other day 2 COUMADIN 5 MG ORAL TABLET 624314 WARFARIN SODIUM Inactive LISINOPRIL 20 MG ORAL TABLET 1 tab po at HS LISINOPRIL 20 MG ORAL TABLET 081296 LISINOPRIL Inactive LISINOPRIL-HYDROCHLOROTHIAZIDE 20-12.5 MG ORAL TABLET 1 tab by m outh daily LISINOPRIL-HYDROCHLOROTHIAZIDE 20-12.5 MG ORAL TABLET 419956 LISINOPRIL-HYDROCHLOROTHIAZIDE Inactive POLYTRIM 16340-6.1 UNIT/ML-% OPHTHALMIC SOLUTION 1 rui p in affected eye every 3 hours while awake x 7 days POLYTRIM 1000 0-0.1 UNIT/ML-% OPHTHALMIC SOLUTION 328588 POLYMYXIN B-TRIMETHOPRIM Inactive COUMADIN 4 MG ORAL TABLET 1 tablet daily COUMADIN 4 MG ORAL TABLET 427522 WARFARIN SODIUM Inactive CLONIDINE HCL 0.1 MG ORAL TABLET 1 po bid 7 days, then 1/2 t ab po bid 7 days CLONIDINE HCL 0.1 MG ORAL TABLET 673973 CLONIDIN E HCL Inactive ALLOPURINOL 300 MG ORAL TABLET Take 1 tablet by mouth daily 2012 ALLOPURINOL 300 MG ORAL TABLET 738442 ALLOPURINOL I nactive MECLIZINE HCL 25 MG ORAL TABLET 1 po tid 3 days, then 1/2 ta b tid 3 days MECLIZINE HCL 25 MG ORAL TABLET 093489 MECLIZINE HCL Inactive AMLODIPINE BESYLATE 5 MG ORAL TABLET 1 tablet by mouth daily 201 01/20/04 AMLODIPINE BESYLATE 5 MG ORAL TABLET 709118 AMLODIPINE BESYLATE Inactive KEFLEX 500 MG ORAL CAPSULE 1 po qid K EFLEX 500 MG ORAL CAPSULE 206119 CEPHALEXIN Inactive LOVENOX 100 MG/ML SUBCUTANEOUS SOLUTION One injection twice a da y LOVENOX 100 MG/ML SUBCUTANEOUS SOLUTION 361952 ENOXAPAR IN SODIUM Inactive Vital Signs Date [...] - Chem istry sodium, serum 139 mmol/L 884-683 4859/07/17 potassium, serum 4.2 mmol/L 3.5-5.2 chloride, serum 102 mmol/L 98-107 carbon dioxide, venous blood 28.9 mmol/L 21.0-32 .0 blood glucose 211 mg/dL 65-110 calcium, serum 10.6 mg/dL 8.5-10.1 urea nitrogen, blood 29 mg/dL 7-18 creatinine, serum 1.24 mg/dL 0.60-1.30 sodium, serum 141 mmol/L 857-538 4725/08/07 potassium, serum 4.5 mmol/L 3.5-5.2 chloride, serum [...] ... - Chemistry sodium, serum 144 mmol/L 266-254 8508/06/12 carbon dioxide, venous blood 26.6 mmol/L 21.0-32 [...] HGBA1C - Chemistry cholesterol, serum 136 mg/dL 642-110 0507/12/06 triglyceride, serum, fasting 247 mg/dL 30-200 HDL cholesterol, serum 41 mg/dL 32-60 LDL cholesterol, serum 46 mg/dL 0-130 aspartate aminotransferase (SGOT), serum 22 U/L 15-37 alanine aminotransferase (SGPT), serum 30 U/L 12-78 bilirubin, serum, total 0.80 mg/dL 0.00-1.00 hemoglobin A1C, blood, as % of total hemoglobin 6.4 % 4.3-6.0 Encounters Code Encounter Date Provider Facility CPT-59506 Level 3 Est. Patient 18:25:53 CDT Mitch luis [facility] CPT-44923 Level 3 Est. Patient 19:43:34 CDT Mitch luis [facility] CPT-13200 Level 4 Est. Patient 09:30:18 CDT Mitch luis [facility] CPT-95057 Level 3 Est. Patient 15:10:14 CDT Joe kamara [facility] CPT-89157 Level 3 Est. Patient 15:03:46 CDT Joe kamara [facility] CPT-79841 Level 3 Est. Patient 14:21:06 CDT Mitch Arnol Nona luis [facility] CPT-78868 Level 3 Est. Patient 14:52:06 CDT Joe kamara [facility] CPT-62891 Level 3 Est. Patient 09:34:30 SERVICE CREW LEADER Mitch Arnol Nona luis [facility] CPT-17119 Level 3 Est. Patient 09:37:15 CDT Mitch luis [facility] CPT-04905 Level 3 Est. Patient 17:01:00 SERVICE CREW LEADER Mitch luis [facility] CPT-25085 Level 3 Est. Patient 13:53:19 SERVICE CREW LEADER Mitch luis [facility] CPT-94925 Level 3 Est. Patient 19:19:37 SERVICE CREW LEADER Mitch luis [facility] CPT-22095 Level 3 Est. Patient 13:25:53 SERVICE CREW LEADER Tavo toure MD [facility] CPT-63724 Level 3 Est. Patient 18:17:28 CDT Mitch luis [facility] CPT-05340 Level 3 Est. Patient 15:22:57 CDT Mitch luis [facility] CPT-48017 Level 3 Est. Patient 18:21:50 CDT Mitch W L janelle [facility] CPT-22898 Level 3 Est. Patient 18:20:38 CDT Mitch W L janelle [facility] CPT-31288 Level 3 Est. Patient 15:37:55 CDT Mitch luis [facility] CPT-44762 Level 2 Est. Patient 15:54:44 CDT Carmine benton MD [facility] CPT-67041 Level 3 Est. Patient 21:46:01 SERVICE CREW LEADER Mitch luis [facility] CPT-66264 Level 3 Est. Patient 22:15:50 CDT Mitch luis [facility] CPT-82480 Level 3 Est. Patient 10:48:15 CDT Mitch luis [facility] CPT-38387 Level 3 Est. Patient 23:20:57 CDT Tavo toure MD [facility] CPT-63310 Level 3 Est. Patient 16:26:13 CDT Mitch Castellano janelle [facility] Procedures Code Procedure Name Date Entry Date Standard Desc ription CPT-22366 Venipuncture Draw Fee 09:26:17 CDT CPT-29931 PT/INR - LAB USE ONLY 13:32:49 [employer] LE[employer] CPT-46017 Venipuncture Draw Fee 13:32:49 [employer]ICE CREW LEADER CPT-41189 PT/INR - LAB USE ONLY 10:34:49 [employer]ICE CREW LEADER CPT-90624 Venipuncture Draw Fee 10:34:48 [employer]ICE [employer]W LEADER CPT-57442 PT/INR - LAB USE ONLY 09:22:03 SERVICE CREW LEADER CPT-30584 Venipuncture Draw Fee 09:22:02 [employer]ICE CREW LEADER CPT-37450 Hemoccult IFOBT - LAB USE ONLY 10:27:22 CDT CPT-67994 Venipuncture Draw Fee 08:27:08 CDT CPT-12991 Liver Profile - LAB USE ONLY 08:27:07 CDT 2 CPT-28706 Microalbumin - LAB USE ONLY 08:27:07 CDT 20 25/05/09 CPT-33484 PT/INR - LAB USE ONLY 08:27:07 CDT CPT-85549 HGBA1C - LAB USE ONLY 08:27:07 CDT CPT-20816 CBC - LAB USE ONLY 08:27:07 CDT CPT-25164 Venipuncture Draw Fee 11:09:14 CDT CPT-47557 Venipuncture Draw Fee 08:32:21 [employer]ICE [employer]W LEADER CPT-84104 Venipuncture Draw Fee 09:38:56 [employer]ICE [employer]W LEADER CPT-95643 No Charge Offi Visit 21:36:07 CDT 1 CPT-27922 Venipuncture Draw Fee 10:13:28 [employer]ICE [employer]W LEADER CPT-30248 Venipuncture Draw Fee 08:31:11 CDT CPT-12711 Aspir/Inject Med Joint 18:17:28 CDT CPT-18394 Venipuncture Draw Fee 10:13:30 CDT CPT-89076 Venipuncture Draw Fee 08:31:43 [employer]ICE [employer]W LEADER CPT-JTINJ Joint Injection 18:34:50 CDT CPT-58030 Knee 3V 12:25:09 CDT CPT-76320 Venipuncture Draw Fee 12:15:57 CDT CPT-060 Medical Surveillance Exam 21:31:43 CDT 2011 CPT-48776 Venipuncture Draw Fee 08:32:05 SERVICE [employer]W LEADER CPT-OV Office Visit 18:19:06 CDT
--- OUTSIDE RECORDS SUMMARY | 2020-01-18 11:46 | XMS REPORT | Clinical Summary ---
Author Author Admin, Mitch Leon Organization [facility] [employer] Address Unknown Phone Unavailable Allergies, Adverse Reactions, [...] Coronary atherosclerosis of unspecified type of vessel, [place] or graft EDEMA 782.3 Resolved Mitch Urbina [...] 1 tablet by mouth daily AMLODIPINE BESYLATE 41384452943 No Longer Active Joe Williamson APRN Active MITIGARE 0.6 MG ORAL CAPS 2 capsules at onset of gout pain, then take one capsule at 1 hour if symptoms persist. COLCHICINE 59 537908625 Active Mitch Urbina DO Active COUMADIN 1 MG TAB 2 tabs orally daily with the 5mg tab to equal 7mg daily WARFARIN SODIUM 51003600685 Active Mitch Urbina DO Active COLCRYS 0.6 MG TABS 1 tab qid prn gout COLCHICINE 35512369818 Active Norma Sage Active INVOKANA 100 MG ORAL TABS 1 tablet orally daily CANAGLIFLOZIN 98528952518 Active Mitch Urbina DO Active MINOXIDIL 2.5 MG TABS 1 tablet daily for high blood pressure 10/23 MINOXIDIL 20282823543 Active Mitch Urbina DO Active MECLIZINE HCL 25 MG TAB 1 po tid 3 days, then 1/2 tab tid 3 days MECLIZINE HCL 15741096783 No Longer Active Corey SEGURA Active ALLOPURINOL 300 MG TABS Take 1 tablet by mouth daily 2 ALLOPURINOL 68446004473 No Longer Active Corey SEGURA Activ e CLONIDINE HCL 0.1 MG TABS 1 po bid 7 days, then 1/2 tab po b id 7 days CLONIDINE HCL 08054188315 No Longer Active Corey SEGURA Active COUMADIN 5 MG TABS 1 tab PO daily WARFARIN SODIUM 05470246100 Active Mitch Urbina DO Active COUMADIN 4 MG TABS 1 tablet daily WARFARIN SODI UM 35838269640 No Longer Active Corey SEGURA Active POLYTRIM 10955-7.1 UNIT/ML-% SOLN 1 drop in affected e ye every 3 hours while awake x 7 days POLYMYXIN B-TRIMETHOPRIM 63583635942 N o Longer Active Corey SEGURA Active LOSARTAN POTASSIUM-HCTZ 100-12.5 MG TABS 1 by mouth da [place] for high blood pressure LOSARTAN POTASSIUM-HCTZ 28821364691 Active Stephy Urbina DO Active LISINOPRIL-HYDROCHLOROTHIAZIDE 20-12.5 MG TABS 1 tab by mouth da rocky LISINOPRIL-HYDROCHLOROTHIAZIDE 78506703283 No Longer Active Mitch luis DO Active LISINOPRIL 20 MG TABS 1 tab po at HS LISINOPRIL 10552546723 No Longer Active Mitch Urbina DO Active COUMADIN 5 MG TABS 1 by mouth every other day WARFARIN SODIUM 95495540753 No Longer Active Mitch Arnol Carlitos DO Active COUMADIN 6 MG TABS 1 by mouth every other day WARFARIN SODIUM 07888382826 No Longer Active Mitch Urbina DO Active SIMVASTATIN 40 MG TABS 1 tab daily at bedtime S IMVASTATIN 21516609841 Active Mitch Urbina DO Active SIMVASTATIN 20 MG TABS 1 tab daily at bedtime S IMVASTATIN 43713636440 No Longer Active Mitch Urbina DO Active LOVENOX 100 MG/ML SC SOLN One injection twice a day 09/15/15 ENOXAPARIN SODIUM 41823597209 No Longer Active Carmine Navarrete ctive JANUVIA 50 MG TABS Take one by mouth daily DIEGO GLIPTIN PHOSPHATE 46732997223 Active Mitch Urbina DO Active JANUVIA 100 MG TABS 1/2 by mouth every day DIEGO GLIPTIN PHOSPHATE 28343411509 No Longer Active Bijal Segal RN Active METFORMIN HCL 500 MG TABS 2 by mouth twice daily METFORMIN HCL 81990381574 Active Mitch Urbina DO Active GLIMEPIRIDE 4 MG TABS 1 tab po bid GLIMEPIRIDE 693709 21575 Active Mitch Urbina DO Active COLCRYS 0.6 MG TABS 1 po q 6 hours prn gout pain 03/02 COLCHICINE 22379886014 No Longer Active Camila Reese Active LISINOPRIL 5 MG TABS 1 by mouth every day LISIN OPRIL 04311388943 No Longer Active Nguyen Perez Active KLOR-CON 20 MEQ PACK Take one by mouth daily 8 POTASSIUM CHLORIDE 97565780048 No Longer Active Nguyen Perez Active FUROSEMIDE 40 MG TABS 1 by mouth daily FUROSEMI DE 62252973919 No Longer Active Nguyen Perez Active PROVIGIL 200 MG TABS 1/2 tab po q day MODAFINIL 32764 349407 Active Mitch Urbina DO Active PROVIGIL 100 MG TABS Take one by mouth daily MO DAFINIL 03005767274 No Longer Active Mitch Urbina DO Active BACTRIM DS 800-160 MG TAB 1 tab by mouth twice daily 2 TRIMETHOPRIM-SULFAMETHOXAZOLE 07058412421 No Longer Active Renan Hays MD Active FAMOTIDINE 20 MG TABS by mouth twice a day FAMOTI DINE 10681975741 Active Mitch Urbina DO Active ADULT ASPIRIN LOW STRENGTH 81 MG TBDP 1 by mouth every daily ASPIRIN 48390400866 Active Mitch Urbina DO Active METOPROLOL TARTRATE 50 MG TABS 1 by mouth twice daily METOPROLOL TARTRATE 79405896262 Active Mitch Urbina DO Active BACTRIM DS 800-160 MG TAB 1 tab by mouth twice daily 2 BACTRIM DS 800-160 MG TAB 137780 TRIMETHOPRIM-SULFAMETHOXAZOLE Inac tive PROVIGIL 100 MG TABS Take one by mouth daily 4 PROVIGIL 100 MG TABS 850122 MODAFINIL Inactive FUROSEMIDE 40 MG TABS 1 by mouth daily FU ROSEMIDE 40 MG TABS 730195 FUROSEMIDE Inactive KLOR-CON 20 MEQ PACK Take one by mouth daily 8 KLOR-CON 20 MEQ PACK 3371626 POTASSIUM CHLORIDE Inactive LISINOPRIL 5 MG TABS 1 by mouth every day LISINOPRIL 5 MG TABS 231313 LISINOPRIL Inactive COLCRYS 0.6 MG TABS 1 po q 6 hours prn gout pain 03/02 COLCRYS 0.6 MG TABS 839419 COLCHICINE Inactive JANUVIA 100 MG TABS 1/2 by mouth every day JANUVI A 100 MG TABS SITAGLIPTIN PHOSPHATE Inactive SIMVASTATIN 20 MG TABS 1 tab daily at bedtime SIMVASTATIN 20 MG TABS 022757 SIMVASTATIN Inactive COUMADIN 6 MG TABS 1 by mouth every other day COUMADIN 6 MG TABS 841902 WARFARIN SODIUM Inactive COUMADIN 5 MG TABS 1 by mouth every other day COUMADIN 5 MG TABS 420664 WARFARIN SODIUM Inactive LISINOPRIL 20 MG TABS 1 tab po at HS KOKI NOPRIL 20 MG TABS 501736 LISINOPRIL Inactive LISINOPRIL-HYDROCHLOROTHIAZIDE 20-12.5 MG TABS 1 tab by mouth da rocky LISINOPRIL-HYDROCHLOROTHIAZIDE 20-12.5 MG TABS 256137 LISINOPRIL-HYDROCHLOROTHIAZIDE Inactive POLYTRIM 94620-6.1 UNIT/ML-% SOLN 1 drop in affected e ye every 3 hours while awake x 7 days POLYTRIM 48846-7.1 UNIT/ML-% SOLN 62250 7 POLYMYXIN B-TRIMETHOPRIM Inactive COUMADIN 4 MG TABS 1 tablet daily COUMADIN 4 MG TABS 331295 WARFARIN SODIUM Inactive CLONIDINE HCL 0.1 MG TABS 1 po bid 7 days, then 1/2 tab po b id 7 days CLONIDINE HCL 0.1 MG TABS 196813 CLONIDINE HCL I nactive ALLOPURINOL 300 MG TABS Take 1 tablet by mouth daily 2 ALLOPURINOL 300 MG TABS 973896 ALLOPURINOL Inactive MECLIZINE HCL 25 MG TAB 1 po tid 3 days, then 1/2 tab tid 3 days MECLIZINE HCL 25 MG TAB 243453 MECLIZINE HCL Inactive AMLODIPINE BESYLATE 5 MG TABS 1 tablet by mouth daily AMLODIPINE BESYLATE 5 MG TABS 236672 AMLODIPINE BESYLATE Inactive LOVENOX 100 MG/ML SC SOLN One injection twice a day 09/15/15 LOVENOX 100 MG/ML SC SOLN 342443 ENOXAPARIN SODIUM Inactive Vital Signs Date Name [...] Description Chart [facility] - Chemistry occult blood, stool (E&M) Positive Lab Report: Lipid Panel, HEPATIC PANEL, MICROALB/CREAT W/RATIO, HGBA1C, CBC - Chemistry cholesterol, serum 136 mg/dL 721-523 7517/08/09 triglyceride, serum, fasting 187 mg/dL 30-200 HDL [...] 1.0-3.5 Encounters Code Encounter Date Provider Facility CPT-97389 Level 4 Est. Patient 09:30:18 CDT Mitch luis [facility] CPT-75794 Level 3 Est. Patient 15:10:[address] [facility] CPT-22995 Level 3 Est. Patient 15:03:[address] [facility] CPT-21399 Level 3 Est. Patient 14:21:06 CDT Mitch luis [facility] CPT-13753 Level 3 Est. Patient 14:52:[address] [facility] CPT-20977 Level 3 Est. Patient 09:34:30 MOVING VAN DRIVER Mitch luis [facility] CPT-73580 Level 3 Est. Patient 09:37:15 CDT Mitch luis [facility] CPT-03834 Level 3 Est. Patient 17:01:00 MOVING VAN DRIVER Mitch luis DO [facility] CPT-43582 Level 3 Est. Patient 13:53:19 MOVING VAN DRIVER Mitch luis [facility] CPT-81946 Level 3 Est. Patient 19:19:37 MOVING VAN DRIVER Mitch luis [facility] CPT-32840 Level 3 Est. Patient 13:25:53 MOVING VAN DRIVER Tavo toure MD [facility] CPT-04790 Level 3 Est. Patient 18:17:28 CDT Mitch luis [facility] CPT-21362 Level 3 Est. Patient 15:22:57 CDT Mitch luis [facility] CPT-43452 Level 3 Est. Patient 18:21:50 CDT Mitch luis [facility] CPT-48500 Level 3 Est. Patient 18:20:38 CDT Mitch luis [facility] CPT-99124 Level 3 Est. Patient 15:37:55 CDT Mitch luis [facility] CPT-26270 Level 2 Est. Patient 15:54:44 CDT Carmine benton MD [facility] CPT-43656 Level 3 Est. Patient 21:46:01 MOVING VAN DRIVER Mitch luis [facility] CPT-99850 Level 3 Est. Patient 22:15:50 CDT Mitch luis [facility] CPT-13856 Level 3 Est. Patient 10:48:15 CDT Mitch Arnol L janelle [facility] CPT-37825 Level 3 Est. Patient 23:20:57 CDT Tavo toure MD [facility] CPT-61254 Level 3 Est. Patient 16:26:13 CDT Mitch Castellano janelle [facility] Procedures Code Procedure Name Date Entry Date Standard Desc ription CPT-44256 PT/INR - LAB USE ONLY 13:32:49 MOVING VAN DRIVER CPT-28501 Venipuncture Draw Fee 13:32:49 MOVING VAN DRIVER CPT-87712 PT/INR - LAB USE ONLY 10:34:49 MOVING VAN DRIVER CPT-27055 Venipuncture Draw Fee 10:34:48 MOVING VAN DRIVER CPT-37770 PT/INR - LAB USE ONLY 09:22:03 MOVING VAN DRIVER CPT-15197 Venipuncture Draw Fee 09:22:02 MOVING VAN DRIVER CPT-97398 Hemoccult IFOBT - LAB USE ONLY 10:27:22 CDT CPT-24257 Venipuncture Draw Fee 08:27:08 CDT CPT-35638 Liver Profile - LAB USE ONLY 08:27:07 CDT 2 CPT-79855 Microalbumin - LAB USE ONLY 08:27:07 CDT 20 25/05/09 CPT-30656 PT/INR - LAB USE ONLY 08:27:07 CDT CPT-93456 HGBA1C - LAB USE ONLY 08:27:07 CDT CPT-79897 CBC - LAB USE ONLY 08:27:07 CDT CPT-83009 Venipuncture Draw Fee 11:09:14 CDT CPT-62698 Venipuncture Draw Fee 08:32:21 MOVING VAN DRIVER CPT-84739 Venipuncture Draw Fee 09:38:56 MOVING VAN DRIVER CPT-27378 No Charge Offi Visit 21:36:07 CDT 1 CPT-72308 Venipuncture Draw Fee 10:13:28 MOVING VAN DRIVER CPT-19108 Venipuncture Draw Fee 08:31:11 CDT CPT-97054 Aspir/Inject Med Joint 18:17:28 CDT CPT-54067 Venipuncture Draw Fee 10:13:30 CDT CPT-02824 Venipuncture Draw Fee 08:31:43 MOVING VAN DRIVER CPT-JTINJ Joint Injection 18:34:50 CDT CPT-31756 Knee 3V 12:25:09 CDT CPT-18399 Venipuncture Draw Fee 12:15:57 CDT CPT-060 Medical Surveillance Exam 21:31:43 CDT 2011 CPT-23979 Venipuncture Draw Fee 08:32:05 MOVING VAN DRIVER CPT-OV Office Visit 18:19:06 CDT
--- OUTSIDE RECORDS SUMMARY | 2020-01-18 11:47 | XMS REPORT | Clinical Summary ---
Author Author Admin, Mitch Leon Organization [facility] Address Unknown Phone Unavailable Allergies, Adverse Reactions, [...] Coronary atherosclerosis of unspecified type of vessel, tling[place] & [place] or graft EDEMA 782.3 Resolved Mitch Urbina [...] ( 6mg total ) 2015 WARFARIN SODIUM 35654030445 Active Domi Rivera MA Acti ve INVOKANA 100 MG ORAL TABS 1 tablet orally daily CANAGLIFLOZIN 78769218421 Active Kathie Juan RPT,RMA Active MINOXIDIL 2.5 MG TABS 1 tablet daily for high blood pressure 10/23 MINOXIDIL 40142857588 Active Mitch Urbina DO Active AMLODIPINE BESYLATE 5 MG TABS 1 tablet by mouth daily AMLODIPINE BESYLATE 55535828487 Active Domi Rivera MA Active MECLIZINE HCL 25 MG TAB 1 po tid 3 days, then 1/2 tab tid 3 days MECLIZINE HCL 86766615089 No Longer Active Corey SEGURA Active ALLOPURINOL 300 MG TABS Take 1 tablet by mouth daily 2 ALLOPURINOL 28589604889 No Longer Active Corey SEGURA Activ e CLONIDINE HCL 0.1 MG TABS 1 po bid 7 days, then 1/2 tab po b id 7 days CLONIDINE HCL 79409770930 No Longer Active Corey SEGURA Active COUMADIN 5 MG TABS 1 tab PO daily WARFARIN SODIUM 65005266852 Active Domi Rivera MA Active COUMADIN 4 MG TABS 1 tablet daily WARFARIN SODI UM 34521590985 No Longer Active Corey SEGURA Active POLYTRIM 44300-3.1 UNIT/ML-% SOLN 1 drop in affected e ye every 3 hours while awake x 7 days POLYMYXIN B-TRIMETHOPRIM 24200333291 N o Longer Active Corey SEGURA Active LOSARTAN POTASSIUM-HCTZ 100-12.5 MG TABS 1 by mouth da rocky for high blood pressure LOSARTAN POTASSIUM-HCTZ 89542135563 Active Domi Rivera MA Active LISINOPRIL-HYDROCHLOROTHIAZIDE 20-12.5 MG TABS 1 tab by mouth da rocky LISINOPRIL-HYDROCHLOROTHIAZIDE 84075430220 No Longer Active Mitch luis DO Active LISINOPRIL 20 MG TABS 1 tab po at HS LISINOPRIL 56613980621 No Longer Active Mitch Urbina DO Active COUMADIN 5 MG TABS 1 by mouth every other day WARFARIN SODIUM 81554290354 No Longer Active Mitch Urbina DO Active COUMADIN 6 MG TABS 1 by mouth every other day WARFARIN SODIUM 18812358338 No Longer Active Mitch Urbina DO Active COLCRYS 0.6 MG TABS 1 tab qid prn gout COLCHICINE 11147278797 Active Corey SEGURA Active SIMVASTATIN 40 MG TABS 1 tab daily at bedtime S IMVASTATIN 88845120992 Active Domi Rivera MA Active SIMVASTATIN 20 MG TABS 1 tab daily at bedtime S IMVASTATIN 65126274106 No Longer Active Mitch Urbina DO Active LOVENOX 100 MG/ML SC SOLN One injection twice a day 09/15/15 ENOXAPARIN SODIUM 21631828889 No Longer Active Carmine Navarrete ctive JANUVIA 50 MG TABS Take one by mouth daily DIEGO GLIPTIN PHOSPHATE 73052607604 Active Domi Rivera MA Active JANUVIA 100 MG TABS 1/2 by mouth every day DIEGO GLIPTIN PHOSPHATE 98295623475 No Longer Active Bijal Segal RN Active METFORMIN HCL 500 MG TABS 2 by mouth twice daily METFORMIN HCL 20047660850 Active Kathie Juan RPT,RMA Active GLIMEPIRIDE 4 MG TABS 1 tab po bid GLIMEPIRIDE 691544 37590 Active Kathie Juan RPT,RMA Active COLCRYS 0.6 MG TABS 1 po q 6 hours prn gout pain 03/02 COLCHICINE 09102032887 No Longer Active Camila Reese Active LISINOPRIL 5 MG TABS 1 by mouth every day LISIN OPRIL 52925682220 No Longer Active Nguyen Perez Active KLOR-CON 20 MEQ PACK Take one by mouth daily 8 POTASSIUM CHLORIDE 39903498546 No Longer Active Nguyen Perez Active FUROSEMIDE 40 MG TABS 1 by mouth daily FUROSEMI DE 83297788018 No Longer Active Nguyenmolly Perez Active PROVIGIL 200 MG TABS 1/2 tab po q day MODAFINIL 55522 071271 Active Domi Rivera MA Active PROVIGIL 100 MG TABS Take one by mouth daily MO DAFINIL 48717547387 No Longer Active Mitch Urbina DO Active BACTRIM DS 800-160 MG TAB 1 tab by mouth twice daily 2 TRIMETHOPRIM-SULFAMETHOXAZOLE 46235630528 No Longer Active Renan Hays MD Active FAMOTIDINE 20 MG TABS by mouth twice a day FAMOTI DINE 39610714344 Active Mitch Urbina DO Active ADULT ASPIRIN LOW STRENGTH 81 MG TBDP 1 by mouth every daily ASPIRIN 19934553699 Active Mitch Urbina DO Active METOPROLOL TARTRATE 50 MG TABS 1 by mouth twice daily METOPROLOL TARTRATE 48143631010 Active Domi Rivera MA Active BACTRIM DS 800-160 MG TAB 1 tab by mouth twice daily 2 BACTRIM DS 800-160 MG TAB 146075 TRIMETHOPRIM-SULFAMETHOXAZOLE Inac tive PROVIGIL 100 MG TABS Take one by mouth daily 4 PROVIGIL 100 MG TABS 465880 MODAFINIL Inactive FUROSEMIDE 40 MG TABS 1 by mouth daily FU ROSEMIDE 40 MG TABS 458253 FUROSEMIDE Inactive KLOR-CON 20 MEQ PACK Take one by mouth daily 8 KLOR-CON 20 MEQ PACK 438591 POTASSIUM CHLORIDE Inactive LISINOPRIL 5 MG TABS 1 by mouth every day LISINOPRIL 5 MG TABS 166208 LISINOPRIL Inactive COLCRYS 0.6 MG TABS 1 po q 6 hours prn gout pain 03/02 COLCRYS 0.6 MG TABS 395493 COLCHICINE Inactive JANUVIA 100 MG TABS 1/2 by mouth every day JANUVI A 100 MG TABS SITAGLIPTIN PHOSPHATE Inactive SIMVASTATIN 20 MG TABS 1 tab daily at bedtime SIMVASTATIN 20 MG TABS 880456 SIMVASTATIN Inactive COUMADIN 6 MG TABS 1 by mouth every other day COUMADIN 6 MG TABS 110001 WARFARIN SODIUM Inactive COUMADIN 5 MG TABS 1 by mouth every other day COUMADIN 5 MG TABS 339029 WARFARIN SODIUM Inactive LISINOPRIL 20 MG TABS 1 tab po at HS KOKI NOPRIL 20 MG TABS 415757 LISINOPRIL Inactive LISINOPRIL-HYDROCHLOROTHIAZIDE 20-12.5 MG TABS 1 tab by mouth da rocky LISINOPRIL-HYDROCHLOROTHIAZIDE 20-12.5 MG TABS 767046 LISINOPRIL-HYDROCHLOROTHIAZIDE Inactive POLYTRIM 18282-6.1 UNIT/ML-% SOLN 1 drop in affected e ye every 3 hours while awake x 7 days POLYTRIM 57929-8.1 UNIT/ML-% SOLN 27154 7 POLYMYXIN B-TRIMETHOPRIM Inactive COUMADIN 4 MG TABS 1 tablet daily COUMADIN 4 MG TABS 109973 WARFARIN SODIUM Inactive CLONIDINE HCL 0.1 MG TABS 1 po bid 7 days, then 1/2 tab po b id 7 days CLONIDINE HCL 0.1 MG TABS 267184 CLONIDINE HCL I nactive ALLOPURINOL 300 MG TABS Take 1 tablet by mouth daily 2 ALLOPURINOL 300 MG TABS 901876 ALLOPURINOL Inactive MECLIZINE HCL 25 MG TAB 1 po tid 3 days, then 1/2 tab tid 3 days MECLIZINE HCL 25 MG TAB 450714 MECLIZINE HCL Inactive LOVENOX 100 MG/ML SC SOLN One injection twice a day 09/15/15 LOVENOX 100 MG/ML SC SOLN 174450 ENOXAPARIN SODIUM Inactive Vital Signs Date Name [...] Range Description Chart Maintenance: [facility] Chemistry occult blood, stool (E&M) Positive Lab Report: CBC - Hematology hematocrit, blood 37.3 % 41.0-53.0 mean corpuscular volume, RBC 82 fL 80-97 leukocyte count, blood 7.1 10^3/MM^3 10*3/mm3 4.6-10.2 erythrocyte (RBC) count 4.57 10^6/MM^3 10*6/mm3 4.69-6.1 3 mean corpuscular hemoglobin, RBC 26.6 pg 27. 0-31.2 mean corpuscular hemoglobin concentration, RBC 32.6 G/DL % 31.8-35.4 red blood cell distribution width 18.0 % 11 .6-14.8 platelet count 276 10^3/MM^3 10*3/mm3 913-639 2359/01/14 hemoglobin, blood 12.2 g/dL 13.5-17.5 Lab Report: CBC, Comp. Metabolic Panel, Prostatic Specific Ag - Chemistry sodium, serum 141 mmol/L 445-234 4949/07/06 potassium, serum 4.4 mmol/L 3.5-5.2 chloride, serum [...] Metabolic Panel, Prostatic Specific Ag - Hematology hemoglobin, blood 12.4 g/dL 13.5-17.5 erythrocyte (RBC) count 4.60 10^6/MM^3 10*6/mm3 4.69-6.1 3 leukocyte count, blood 7.7 10^3/MM^3 10*3/mm3 4.6-10.2 red blood cell distribution width 18.2 % 11 .6-14.8 mean corpuscular hemoglobin concentration, RBC 32.7 G/DL % 31.8-35.4 mean corpuscular hemoglobin, RBC 27.0 pg 27. 0-31.2 mean corpuscular volume, RBC 83 fL 80-97 hematocrit, blood 38.1 % 41.0-53.0 platelet count 269 10^3/MM^3 10*3/mm3 142-424 Lab Report: Comp. Metabolic Panel - Chem istry aspartate aminotransferase (SGOT), serum 26 U/L 15-37 calcium, serum 9.7 mg/dL 8.5-10.1 bilirubin, serum, total 0.70 mg/dL 0.00-1.00 sodium, serum 136 mmol/L 703-667 7133/01/14 carbon dioxide, venous blood 25.4 mmol/L 21.0-32 .0 chloride, serum 100 mmol/L 98-107 blood glucose 241 mg/dL 65-110 urea nitrogen, blood 25 mg/dL 7-18 potassium, serum 4.2 mmol/L 3.5-5.2 creatinine, serum 1.11 mg/dL 0.55-1.30 alanine aminotransferase (SGPT), serum 37 U/L 12-78 Lab Report: HGBA1C - Chemistry hemoglobin A1C, blood, as % of total hemoglobin 6.6 % 4.3-6.0 Lab Report: HGBA1C, Lipid Panel - Chemis try hemoglobin A1C, blood, as % of total hemoglobin 7.0 % 4.3-6.0 cholesterol, serum 120 mg/dL 422-704 3598/07/06 LDL cholesterol, serum 49 mg/dL 0-130 triglyceride, serum, fasting 186 mg/dL 30-200 HDL cholesterol, serum 34 mg/dL 32-96 Lab Report: HGBA1C, Prothrombin Time - C [...] Time - Coagulati on prothrombin time (patient) 18.9 SECS s 11.1-13.4 international normalized ratio (INR) 2.4 1.0-3.5 international normalized ratio (INR) 2.0 1.0-3.5 prothrombin time (patient) 18.1 SECS s 11.1-13.4 international normalized ratio (INR) 2.2 1.0-3.5 international normalized ratio (INR) 2.3 1.0-3.5 prothrombin time (patient) 18.6 SECS s 11.1-13.4 prothrombin time (patient) 14.5 SECS s 11.1-13.4 international normalized ratio (INR) 1.5 1.0-3.5 prothrombin time (patient) 16.2 SECS s 11.1-13.4 international normalized ratio (INR) 1.8 1.0-3.5 prothrombin time (patient) 15.8 SECS s 11.1-13.4 international normalized ratio (INR) 1.8 1.0-3.5 prothrombin time (patient) 17.1 SECS s 11.1-13.4 Encounters Code Encounter Date Provider Facility CPT-49627 Level 3 Est. Patient 09:34:30 RESIDENTIAL REAL ESTATE ASSISTANT Mitch luis [facility] CPT-30075 Level 3 Est. Patient 09:37:15 CDT Mitch luis [facility] CPT-12710 Level 3 Est. Patient 17:01:00 RESIDENTIAL REAL ESTATE ASSISTANT Mitch luis [facility] CPT-91393 Level 3 Est. Patient 13:53:19 RESIDENTIAL REAL ESTATE ASSISTANT Mitch luis [facility] CPT-62589 Level 3 Est. Patient 19:19:37 RESIDENTIAL REAL ESTATE ASSISTANT Mitch luis [facility] CPT-66075 Level 3 Est. Patient 13:25:53 RESIDENTIAL REAL ESTATE ASSISTANT Tavo toure MD [facility] CPT-44209 Level 3 Est. Patient 18:17:28 CDT Mitch luis [facility] CPT-67235 Level 3 Est. Patient 15:22:57 CDT Mitch luis [facility] CPT-01233 Level 3 Est. Patient 18:21:50 CDT Mitch luis [facility] CPT-73431 Level 3 Est. Patient 18:20:38 CDT Mitch luis [facility] CPT-10709 Level 3 Est. Patient 15:37:55 CDT Mitch luis [facility] CPT-53838 Level 2 Est. Patient 15:54:44 CDT Carmine benton MD [facility] CPT-26086 Level 3 Est. Patient 21:46:01 RESIDENTIAL REAL ESTATE ASSISTANT Mitch luis [facility] CPT-14366 Level 3 Est. Patient 22:15:50 CDT Mitch luis [facility] CPT-44447 Level 3 Est. Patient 10:48:15 CDT Mitch luis [facility] CPT-60487 Level 3 Est. Patient 23:20:57 CDT Tavo toure MD [facility] CPT-23046 Level 3 Est. Patient 16:26:13 CDT Mitch luis [facility] Procedures Code Procedure Name Date Entry Date Standard Desc ription CPT-29453 Venipuncture Draw Fee 08:32:21 RESIDENTIAL REAL ESTATE ASSISTANT CPT-83455 Venipuncture Draw Fee 09:38:56 RESIDENTIAL REAL ESTATE ASSISTANT CPT-30215 No Charge Offi Visit 21:36:07 CDT 1 CPT-66526 Venipuncture Draw Fee 10:13:28 RESIDENTIAL REAL ESTATE ASSISTANT CPT-74674 Venipuncture Draw Fee 08:31:11 CDT CPT-55569 Aspir/Inject Med Joint 18:17:28 CDT CPT-00662 Venipuncture Draw Fee 10:13:30 CDT CPT-13886 Venipuncture Draw Fee 08:31:43 RESIDENTIAL REAL ESTATE ASSISTANT CPT-JTINJ Joint Injection 18:34:50 CDT CPT-64713 Knee 3V 12:25:09 CDT CPT-07569 Venipuncture Draw Fee 12:15:57 CDT CPT-060 Medical Surveillance Exam 21:31:43 CDT 2011 CPT-42516 Venipuncture Draw Fee 08:32:05 RESIDENTIAL REAL ESTATE ASSISTANT CPT-OV Office Visit 18:19:06 CDT
--- OUTSIDE RECORDS SUMMARY | 2020-01-18 11:47 | XMS REPORT | Clinical Summary ---
Author Author Admin, Mitch Leon Organization [facility] Address Unknown Phone Unavailable Allergies, Adverse Reactions, [...] Coronary atherosclerosis of unspecified type of vessel, [place] or graft EDEMA 782.3 Resolved Mitch Urbina [...] Start Date Stop Date Generic Name [facility] Status Provider Patient Instruction GLIMEPIRIDE 4 MG ORAL TABLET 1 tablet by mouth twice daily f or diabetes GLIMEPIRIDE 12477942751 Active Mitch Urbina DO Active GLIMEPIRIDE 2 MG ORAL TABLET 1 po BID GLIMEPI RIDE 58324911113 No Longer Active Mitch Urbina DO Active AMLODIPINE BESYLATE 5 MG ORAL TABLET 1 tablet by mouth daily AMLODIPINE BESYLATE 41202609131 Active Mitch Urbina DO Active PROVIGIL 200 MG ORAL TABLET 1/2 tab po q day MODA FINIL 58179345033 Active Renee Oconnor LPN Active FAMOTIDINE 20 MG ORAL TABLET by mouth twice a day 2017 FAMOTIDINE 73566796439 No Longer Active Mitch Urbina DO Active COLCRYS 0.6 MG ORAL TABLET 1 tab qid prn gout C OLCHICINE 87531253881 No Longer Active Mitch Urbina DO Active KEFLEX 500 MG ORAL CAPSULE 1 po qid CEPHALEXI N 77786864754 No Longer Active Mitch Urbina DO Active LOSARTAN POTASSIUM 100 MG ORAL TABLET 1 pill by mouth daily, for blood pressure LOSARTAN POTASSIUM 03322132152 Active Ana Ocampo Active AMLODIPINE BESYLATE 5 MG ORAL TABLET 1 tablet by mouth daily 201 01/20/04 AMLODIPINE BESYLATE 15201587273 No Longer Active Joe fulton APRN Active MITIGARE 0.6 MG ORAL CAPSULE 2 capsules at onset of go ut pain, then take one capsule at 1 hour if symptoms persist. COLCHICINE 59 447468786 Active Mitch Urbina Active COUMADIN 1 MG ORAL TABLET 2 tabs orally daily with the 5mg tab to equal 7mg daily WARFARIN SODIUM 50543040410 Active Renee Oconnor LPN Active INVOKANA 100 MG ORAL TABLET 1 tablet orally daily CANAGLIFLOZIN 67950430565 Active Renee Quirogamonserrat DE LA ROSA Active MINOXIDIL 2.5 MG ORAL TABLET 1 tablet daily for high blood press ure MINOXIDIL 99529210915 Active Renee Oconnor APPLICATIONS COORDINATOR Active MECLIZINE HCL 25 MG ORAL TABLET 1 po tid 3 days, then 1/2 ta b tid 3 days MECLIZINE HCL 13993175200 No Longer Active Corey SEGURA Active ALLOPURINOL 300 MG ORAL TABLET Take 1 tablet by mouth daily 2012 ALLOPURINOL 16831285701 No Longer Active Corey SEGURA Active CLONIDINE HCL 0.1 MG ORAL TABLET 1 po bid 7 days, then 1/2 t ab po bid 7 days CLONIDINE HCL 21629803259 No Longer Active Corey SEGURA Active COUMADIN 5 MG ORAL TABLET 1 tab PO daily WARFAR IN SODIUM 40489995253 Active Renee Elvin DE LA ROSA Active COUMADIN 4 MG ORAL TABLET 1 tablet daily WARFAR IN SODIUM 57204888015 No Longer Active Corey SEGURA Active POLYTRIM 12806-2.1 UNIT/ML-% OPHTHALMIC SOLUTION 1 rui p in affected eye every 3 hours while awake x 7 days POLYMYXIN B-TRIMETHOP RIM 52495716986 No Longer Active Corey SEGURA Active LOSARTAN POTASSIUM-HCTZ 100-12.5 MG ORAL TABLET 1 by m outh daily for high blood pressure LOSARTAN POTASSIUM-HCTZ 36236680423 No Longer A ctive Mitch Urbina DO Active LISINOPRIL-HYDROCHLOROTHIAZIDE 20-12.5 MG ORAL TABLET 1 tab by m outh daily LISINOPRIL-HYDROCHLOROTHIAZIDE 41369730403 No Longer Active Mitch Urbina DO Active LISINOPRIL 20 MG ORAL TABLET 1 tab po at HS LIS INOPRIL 73128991694 No Longer Active Mitch Urbina DO Active COUMADIN 5 MG ORAL TABLET 1 by mouth every other day 2 WARFARIN SODIUM 46954832112 No Longer Active Mitch Urbina DO Active COUMADIN 6 MG ORAL TABLET 1 by mouth every other day 2 WARFARIN SODIUM 46060099939 No Longer Active Mitch Urbina DO Active SIMVASTATIN 40 MG ORAL TABLET 1 tab daily at bedtime SIMVASTATIN 07983306799 Active Mitch Urbina DO Active SIMVASTATIN 20 MG ORAL TABLET 1 tab daily at bedtime 2 SIMVASTATIN 31502969715 No Longer Active Mitch Urbina DO Active LOVENOX 100 MG/ML SUBCUTANEOUS SOLUTION One injection twice a da y ENOXAPARIN SODIUM 23649650171 No Longer Active Carmine Yusuf MD Active JANUVIA 50 MG ORAL TABLET Take one by mouth daily SITAGLIPTIN PHOSPHATE 63175324669 Active Renee Oconnoreder DE LA ROSA Active JANUVIA 100 MG ORAL TABLET 1/2 by mouth every day 2011 SITAGLIPTIN PHOSPHATE 52522538298 No Longer Active Bijal Segal RN Acti ve METFORMIN HCL 500 MG ORAL TABLET 2 by mouth twice daily METFORMIN HCL 80742449377 No Longer Active Renee Oconnor LPN Active COLCRYS 0.6 MG ORAL TABLET 1 po q 6 hours prn gout pain COLCHICINE 68663305413 No Longer Active Camila Reese Active LISINOPRIL 5 MG ORAL TABLET 1 by mouth every day 11/17 LISINOPRIL 76501492834 No Longer Active Nguyen Perez Active KLOR-CON 20 MEQ ORAL PACKET Take one by mouth daily 09/10/08 POTASSIUM CHLORIDE 61979864722 No Longer Active Nguyenmolly Perez Active FUROSEMIDE 40 MG ORAL TABLET 1 by mouth daily F UROSEMIDE 35198633734 No Longer Active Nguyen Ana Active PROVIGIL 100 MG ORAL TABLET Take one by mouth daily 08/20/04 MODAFINIL 76872426442 No Longer Active Mitch Urbina DO Active BACTRIM DS 800-160 MG ORAL TABLET 1 tab by mouth twice daily 201 10/19/09 TRIMETHOPRIM-SULFAMETHOXAZOLE 62786786922 No Longer Active Elian Hays MD Active ADULT ASPIRIN LOW STRENGTH 81 MG ORAL TABLET DISINTEGR ATING 1 by mouth every daily ASPIRIN 42233975574 Active Mitch Urbina DO Ac tive METOPROLOL TARTRATE 50 MG ORAL TABLET 1 by mouth twice daily METOPROLOL TARTRATE 69904449328 Active Anabella Ocampo Activ e BACTRIM DS 800-160 MG ORAL TABLET 1 tab by mouth twice daily 201 10/19/09 BACTRIM DS 800-160 MG ORAL TABLET 896312 TRIMETHOPRIM-SULFAMETHOXAZOLE Inactive PROVIGIL 100 MG ORAL TABLET Take one by mouth daily 08/20/04 PROVIGIL 100 MG ORAL TABLET 605747 MODAFINIL Inactive FUROSEMIDE 40 MG ORAL TABLET 1 by mouth daily FUROSEMIDE 40 MG ORAL TABLET 895852 FUROSEMIDE Inactive KLOR-CON 20 MEQ ORAL PACKET Take one by mouth daily 09/10/08 KLOR- CON 20 MEQ ORAL PACKET 5301047 POTASSIUM CHLORIDE Inactive LISINOPRIL 5 MG ORAL TABLET 1 by mouth every day 11/17 LISINOPRIL 5 MG ORAL TABLET 060119 LISINOPRIL Inactive COLCRYS 0.6 MG ORAL TABLET 1 po q 6 hours prn gout pain COLCRYS 0.6 MG ORAL TABLET 539863 COLCHICINE Inactive JANUVIA 100 MG ORAL TABLET 1/2 by mouth every day 2011 JANUVIA 100 MG ORAL TABLET SITAGLIPTIN PHOSPHATE Inactive SIMVASTATIN 20 MG ORAL TABLET 1 tab daily at bedtime 2 SIMVASTATIN 20 MG ORAL TABLET 546102 SIMVASTATIN Inactive COUMADIN 6 MG ORAL TABLET 1 by mouth every other day 2 COUMADIN 6 MG ORAL TABLET 359310 WARFARIN SODIUM Inactive COUMADIN 5 MG ORAL TABLET 1 by mouth every other day 2 COUMADIN 5 MG ORAL TABLET 515596 WARFARIN SODIUM Inactive LISINOPRIL 20 MG ORAL TABLET 1 tab po at HS LISINOPRIL 20 MG ORAL TABLET 683154 LISINOPRIL Inactive LISINOPRIL-HYDROCHLOROTHIAZIDE 20-12.5 MG ORAL TABLET 1 tab by m outh daily LISINOPRIL-HYDROCHLOROTHIAZIDE 20-12.5 MG ORAL TABLET 195323 LISINOPRIL-HYDROCHLOROTHIAZIDE Inactive POLYTRIM 17470-9.1 UNIT/ML-% OPHTHALMIC SOLUTION 1 rui p in affected eye every 3 hours while awake x 7 days POLYTRIM 1000 0-0.1 UNIT/ML-% OPHTHALMIC SOLUTION 978243 POLYMYXIN B-TRIMETHOPRIM Inactive COUMADIN 4 MG ORAL TABLET 1 tablet daily COUMADIN 4 MG ORAL TABLET 592719 WARFARIN SODIUM Inactive CLONIDINE HCL 0.1 MG ORAL TABLET 1 po bid 7 days, then 1/2 t ab po bid 7 days CLONIDINE HCL 0.1 MG ORAL TABLET 008158 CLONIDIN E HCL Inactive ALLOPURINOL 300 MG ORAL TABLET Take 1 tablet by mouth daily 2012 ALLOPURINOL 300 MG ORAL TABLET 367117 ALLOPURINOL I nactive MECLIZINE HCL 25 MG ORAL TABLET 1 po tid 3 days, then 1/2 ta b tid 3 days MECLIZINE HCL 25 MG ORAL TABLET 313638 MECLIZINE HCL Inactive AMLODIPINE BESYLATE 5 MG ORAL TABLET 1 tablet by mouth daily 201 01/20/04 AMLODIPINE BESYLATE 5 MG ORAL TABLET 419222 AMLODIPINE BESYLATE Inactive KEFLEX 500 MG ORAL CAPSULE 1 po qid K EFLEX 500 MG ORAL CAPSULE 239395 CEPHALEXIN Inactive COLCRYS 0.6 MG ORAL TABLET 1 tab qid prn gout COLCRYS 0.6 MG ORAL TABLET 596802 COLCHICINE Inactive FAMOTIDINE 20 MG ORAL TABLET by mouth twice a day 2017 FAMOTIDINE 20 MG ORAL TABLET 496459 FAMOTIDINE Inactive GLIMEPIRIDE 2 MG ORAL TABLET 1 po BID GLIMEPIRIDE 2 MG ORAL TABLET 164615 GLIMEPIRIDE Inactive LOVENOX 100 MG/ML SUBCUTANEOUS SOLUTION One injection twice a da y LOVENOX 100 MG/ML SUBCUTANEOUS SOLUTION 267965 ENOXAPAR IN SODIUM Inactive Vital Signs Date [...] 4.3-6.0 Encounters Code Encounter Date Provider Facility CPT-75758 [id number] Vst-Est Level IV 10:52:00 THERMODYNAMICIST Stephy Urbina [facility] CPT-70099 Level 3 Est. Patient 18:25:53 CDT Mitch luis [facility] CPT-48992 Level 3 Est. Patient 19:43:34 CDT Mitch luis [facility] CPT-79620 Level 4 Est. Patient 09:30:18 CDT Mitch luis [facility] CPT-62666 Level 3 Est. Patient 15:10:14 CDT Joe kamara [facility] CPT-90188 Level 3 Est. Patient 15:03:46 CDT Joe kamara [facility] CPT-65813 Level 3 Est. Patient 14:21:06 CDT Mitch luis [facility] CPT-33015 Level 3 Est. Patient 14:52:06 CDT Joe kamara [facility] CPT-36520 Level 3 Est. Patient 09:34:30 THERMODYNAMICIST Mitch luis [facility] CPT-29766 Level 3 Est. Patient 09:37:15 CDT Mitch luis [facility] CPT-62092 Level 3 Est. Patient 17:01:00 THERMODYNAMICIST Mitch lius [facility] CPT-85402 Level 3 Est. Patient 13:53:19 THERMODYNAMICIST Mitch luis [facility] CPT-65403 Level 3 Est. Patient 19:19:37 THERMODYNAMICIST Mitch luis [facility] CPT-00690 Level 3 Est. Patient 13:25:53 THERMODYNAMICIST Tavo toure MD [facility] CPT-31234 Level 3 Est. Patient 18:17:28 CDT Mitch Arnol luis [facility] CPT-80892 Level 3 Est. Patient 15:22:57 CDT Mitch Arnol luis [facility] CPT-07526 Level 3 Est. Patient 18:21:50 CDT Mitch luis [facility] CPT-37515 Level 3 Est. Patient 18:20:38 CDT Mitch Arnol luis [facility] CPT-27861 Level 3 Est. Patient 15:37:55 CDT Mitch luis [facility] CPT-63275 Level 2 Est. Patient 15:54:44 CDT Carmine benton MD [facility] CPT-56661 Level 3 Est. Patient 21:46:01 THERMODYNAMICIST Mitch luis [facility] CPT-80238 Level 3 Est. Patient 22:15:50 CDT Mitch luis [facility] CPT-30606 Level 3 Est. Patient 10:48:15 CDT Mitch luis [facility] CPT-51752 Level 3 Est. Patient 23:20:57 CDT Tavo toure MD [facility] CPT-46061 Level 3 Est. Patient 16:26:13 CDT Mitch Castellano janelle [facility] Procedures Code Procedure Name Date Entry Date Standard Desc ription CPT-JTINJ Asp/Joint Injection 18:47:02 CDT CPT-64701 Venipuncture Draw Fee 09:26:17 CDT CPT-28078 PT/INR - LAB USE ONLY 13:32:49 THERMODYNAMICIST CPT-09436 Venipuncture Draw Fee 13:32:49 THERMODYNAMICIST CPT-75029 PT/INR - LAB USE ONLY 10:34:49 THERMODYNAMICIST CPT-29533 Venipuncture Draw Fee 10:34:48 THERMODYNAMICIST CPT-49441 PT/INR - LAB USE ONLY 09:22:03 THERMODYNAMICIST CPT-41116 Venipuncture Draw Fee 09:22:02 THERMODYNAMICIST CPT-62193 Hemoccult IFOBT - LAB USE ONLY 10:27:22 CDT CPT-74281 Venipuncture Draw Fee 08:27:08 CDT CPT-97346 Liver Profile - LAB USE ONLY 08:27:07 CDT 2 CPT-21307 Microalbumin - LAB USE ONLY 08:27:07 CDT 20 25/05/09 CPT-29653 PT/INR - LAB USE ONLY 08:27:07 CDT CPT-78841 HGBA1C - LAB USE ONLY 08:27:07 CDT CPT-03237 CBC - LAB USE ONLY 08:27:07 CDT CPT-02071 Venipuncture Draw Fee 11:09:14 CDT CPT-60794 Venipuncture Draw Fee 08:32:21 THERMODYNAMICIST CPT-48893 Venipuncture Draw Fee 09:38:56 THERMODYNAMICIST CPT-81726 No Charge Offi Visit 21:36:07 CDT 1 CPT-84021 Venipuncture Draw Fee 10:13:28 THERMODYNAMICIST CPT-14024 Venipuncture Draw Fee 08:31:11 CDT CPT-25089 Aspir/Inject Med Joint 18:17:28 CDT CPT-72220 Venipuncture Draw Fee 10:13:30 CDT CPT-44012 Venipuncture Draw Fee 08:31:43 THERMODYNAMICIST CPT-JTINJ Joint Injection 18:34:50 CDT CPT-90736 Knee 3V 12:25:09 CDT CPT-50578 Venipuncture Draw Fee 12:15:57 CDT CPT-060 Medical Surveillance Exam 21:31:43 CDT 2011 CPT-45461 Venipuncture Draw Fee 08:32:05 THERMODYNAMICIST CPT-OV Office Visit 18:19:06 CDT
--- OUTSIDE RECORDS SUMMARY | 2020-01-18 11:47 | XMS REPORT | Clinical Summary ---
Author Author Admin, Mitch Leon Organization [facility] [place] Address Unknown Phone Unavailable Allergies, Adverse Reactions, [...] Coronary atherosclerosis of unspecified type of vessel, false pass or graft EDEMA 782.3 Resolved Mitch Urbina [...] Start Date Stop Date Generic Name [facility] Status Provider Patient Instruction GLIMEPIRIDE 4 MG ORAL TABLET 1 tablet by mouth twice daily f or diabetes GLIMEPIRIDE 39330606411 Active Mitch Urbina DO Active GLIMEPIRIDE 2 MG ORAL TABLET 1 po BID GLIMEPI RIDE 34798688637 No Longer Active Mitch Urbina DO Active AMLODIPINE BESYLATE 5 MG ORAL TABLET 1 tablet by mouth daily AMLODIPINE BESYLATE 11840265625 Active Mitch Urbina DO Active PROVIGIL 200 MG ORAL TABLET 1/2 tab po q day MODA FINIL 80212503353 Active Renee Oconnor LPN Active FAMOTIDINE 20 MG ORAL TABLET by mouth twice a day 2017 FAMOTIDINE 34010153564 No Longer Active Mitch Urbina DO Active COLCRYS 0.6 MG ORAL TABLET 1 tab qid prn gout C OLCHICINE 28986426552 No Longer Active Mitch Urbina DO Active KEFLEX 500 MG ORAL CAPSULE 1 po qid CEPHALEXI N 14452260382 No Longer Active Mitch Urbina DO Active LOSARTAN POTASSIUM 100 MG ORAL TABLET 1 pill by mouth daily, for blood pressure LOSARTAN POTASSIUM 12652739680 Active Ana Ocampo Active AMLODIPINE BESYLATE 5 MG ORAL TABLET 1 tablet by mouth daily 201 01/20/04 AMLODIPINE BESYLATE 25100844609 No Longer Active Joe fulton APRN Active MITIGARE 0.6 MG ORAL CAPSULE 2 capsules at onset of go ut pain, then take one capsule at 1 hour if symptoms persist. COLCHICINE 59 728077794 Active Mitch Urbina Active COUMADIN 1 MG ORAL TABLET 2 tabs orally daily with the 5mg tab to equal 7mg daily WARFARIN SODIUM 71068635024 Active Renee Oconnor LPN Active INVOKANA 100 MG ORAL TABLET 1 tablet orally daily CANAGLIFLOZIN 82888952324 Active Renee Quirogamonserrat [place] Active MINOXIDIL 2.5 MG ORAL TABLET 1 tablet daily for high blood press ure MINOXIDIL 30035289237 Active Renee Oconnor [employer] GRINDER Active MECLIZINE HCL 25 MG ORAL TABLET 1 po tid 3 days, then 1/2 ta b tid 3 days MECLIZINE HCL 77209029745 No Longer Active Corey SEGURA Active ALLOPURINOL 300 MG ORAL TABLET Take 1 tablet by mouth daily 2012 ALLOPURINOL 36846150493 No Longer Active Corey SEGURA Active CLONIDINE HCL 0.1 MG ORAL TABLET 1 po bid 7 days, then 1/2 t ab po bid 7 days CLONIDINE HCL 02369646181 No Longer Active Corey SEGURA Active COUMADIN 5 MG ORAL TABLET 1 tab PO daily WARFAR IN SODIUM 20091360705 Active Renee Elvin [place] Active COUMADIN 4 MG ORAL TABLET 1 tablet daily WARFAR IN SODIUM 36099199645 No Longer Active Corey SEGURA Active POLYTRIM 85246-7.1 UNIT/ML-% OPHTHALMIC SOLUTION 1 rui p in affected eye every 3 hours while awake x 7 days POLYMYXIN B-TRIMETHOP RIM 02064818597 No Longer Active Corey SEGURA Active LOSARTAN POTASSIUM-HCTZ 100-12.5 MG ORAL TABLET 1 by m outh daily for high blood pressure LOSARTAN POTASSIUM-HCTZ 75449332412 No Longer A ctive Mitch Urbina DO Active LISINOPRIL-HYDROCHLOROTHIAZIDE 20-12.5 MG ORAL TABLET 1 tab by m outh daily LISINOPRIL-HYDROCHLOROTHIAZIDE 40154189652 No Longer Active Mitch Urbina DO Active LISINOPRIL 20 MG ORAL TABLET 1 tab po at HS LIS INOPRIL 01159789260 No Longer Active Mitch Urbina DO Active COUMADIN 5 MG ORAL TABLET 1 by mouth every other day 2 WARFARIN SODIUM 68797952896 No Longer Active Mitch Urbina DO Active COUMADIN 6 MG ORAL TABLET 1 by mouth every other day 2 WARFARIN SODIUM 70080261152 No Longer Active Mitch Urbina DO Active SIMVASTATIN 40 MG ORAL TABLET 1 tab daily at bedtime SIMVASTATIN 79213281739 Active Mitch Urbina DO Active SIMVASTATIN 20 MG ORAL TABLET 1 tab daily at bedtime 2 SIMVASTATIN 23614302660 No Longer Active Mitch Urbina DO Active LOVENOX 100 MG/ML SUBCUTANEOUS SOLUTION One injection twice a da y ENOXAPARIN SODIUM 65916820438 No Longer Active Carmine Yusuf MD Active JANUVIA 50 MG ORAL TABLET Take one by mouth daily SITAGLIPTIN PHOSPHATE 28937318450 Active Renee Oconnoreder DE [place] ROS[place] Active JANUVIA 100 MG ORAL TABLET 1/2 by mouth every day 2011 SITAGLIPTIN PHOSPHATE 10921976851 No Longer Active Bijal Segal RN Acti ve METFORMIN HCL 500 MG ORAL TABLET 2 by mouth twice daily METFORMIN HCL 75967126748 No Longer Active Renee Oconnor LPN Active COLCRYS 0.6 MG ORAL TABLET 1 po q 6 hours prn gout pain COLCHICINE 06664983771 No Longer Active Camila Reese Active LISINOPRIL 5 MG ORAL TABLET 1 by mouth every day 11/17 LISINOPRIL 20228957050 No Longer Active Nguyen Perez Active KLOR-CON 20 MEQ ORAL PACKET Take one by mouth daily 09/10/08 POTASSIUM CHLORIDE 99296073266 No Longer Active Nguyenmolly Perez Active FUROSEMIDE 40 MG ORAL TABLET 1 by mouth daily F UROSEMIDE 35813282122 No Longer Active Nguyen Ana Active PROVIGIL 100 MG ORAL TABLET Take one by mouth daily 08/20/04 MODAFINIL 12527156214 No Longer Active Mitch Urbina DO Active BACTRIM DS 800-160 MG ORAL TABLET 1 tab by mouth twice daily 201 10/19/09 TRIMETHOPRIM-SULFAMETHOXAZOLE 09031343558 No Longer Active Elian Hays MD Active ADULT ASPIRIN LOW STRENGTH 81 MG ORAL TABLET DISINTEGR ATING 1 by mouth every daily ASPIRIN 11188096404 Active Mitch Urbina DO Ac tive METOPROLOL TARTRATE 50 MG ORAL TABLET 1 by mouth twice daily METOPROLOL TARTRATE 60500438019 Active Anabella Ocampo Activ e BACTRIM DS 800-160 MG ORAL TABLET 1 tab by mouth twice daily 201 10/19/09 BACTRIM DS 800-160 MG ORAL TABLET 925496 TRIMETHOPRIM-SULFAMETHOXAZOLE Inactive PROVIGIL 100 MG ORAL TABLET Take one by mouth daily 08/20/04 PROVIGIL 100 MG ORAL TABLET 453281 MODAFINIL Inactive FUROSEMIDE 40 MG ORAL TABLET 1 by mouth daily FUROSEMIDE 40 MG ORAL TABLET 159282 FUROSEMIDE Inactive KLOR-CON 20 MEQ ORAL PACKET Take one by mouth daily 09/10/08 KLOR- CON 20 MEQ ORAL PACKET 2079318 POTASSIUM CHLORIDE Inactive LISINOPRIL 5 MG ORAL TABLET 1 by mouth every day 11/17 LISINOPRIL 5 MG ORAL TABLET 765822 LISINOPRIL Inactive COLCRYS 0.6 MG ORAL TABLET 1 po q 6 hours prn gout pain COLCRYS 0.6 MG ORAL TABLET 439125 COLCHICINE Inactive JANUVIA 100 MG ORAL TABLET 1/2 by mouth every day 2011 JANUVIA 100 MG ORAL TABLET SITAGLIPTIN PHOSPHATE Inactive SIMVASTATIN 20 MG ORAL TABLET 1 tab daily at bedtime 2 SIMVASTATIN 20 MG ORAL TABLET 950232 SIMVASTATIN Inactive COUMADIN 6 MG ORAL TABLET 1 by mouth every other day 2 COUMADIN 6 MG ORAL TABLET 804346 WARFARIN SODIUM Inactive COUMADIN 5 MG ORAL TABLET 1 by mouth every other day 2 COUMADIN 5 MG ORAL TABLET 836750 WARFARIN SODIUM Inactive LISINOPRIL 20 MG ORAL TABLET 1 tab po at HS LISINOPRIL 20 MG ORAL TABLET 218910 LISINOPRIL Inactive LISINOPRIL-HYDROCHLOROTHIAZIDE 20-12.5 MG ORAL TABLET 1 tab by m outh daily LISINOPRIL-HYDROCHLOROTHIAZIDE 20-12.5 MG ORAL TABLET 452130 LISINOPRIL-HYDROCHLOROTHIAZIDE Inactive POLYTRIM 09843-4.1 UNIT/ML-% OPHTHALMIC SOLUTION 1 rui p in affected eye every 3 hours while awake x 7 days POLYTRIM 1000 0-0.1 UNIT/ML-% OPHTHALMIC SOLUTION 660123 POLYMYXIN B-TRIMETHOPRIM Inactive COUMADIN 4 MG ORAL TABLET 1 tablet daily COUMADIN 4 MG ORAL TABLET 434951 WARFARIN SODIUM Inactive CLONIDINE HCL 0.1 MG ORAL TABLET 1 po bid 7 days, then 1/2 t ab po bid 7 days CLONIDINE HCL 0.1 MG ORAL TABLET 111900 CLONIDIN E HCL Inactive ALLOPURINOL 300 MG ORAL TABLET Take 1 tablet by mouth daily 2012 ALLOPURINOL 300 MG ORAL TABLET 591830 ALLOPURINOL I nactive MECLIZINE HCL 25 MG ORAL TABLET 1 po tid 3 days, then 1/2 ta b tid 3 days MECLIZINE HCL 25 MG ORAL TABLET 779431 MECLIZINE HCL Inactive AMLODIPINE BESYLATE 5 MG ORAL TABLET 1 tablet by mouth daily 201 01/20/04 AMLODIPINE BESYLATE 5 MG ORAL TABLET 448858 AMLODIPINE BESYLATE Inactive KEFLEX 500 MG ORAL CAPSULE 1 po qid K EFLEX 500 MG ORAL CAPSULE 460981 CEPHALEXIN Inactive COLCRYS 0.6 MG ORAL TABLET 1 tab qid prn gout COLCRYS 0.6 MG ORAL TABLET 357913 COLCHICINE Inactive FAMOTIDINE 20 MG ORAL TABLET by mouth twice a day 2017 FAMOTIDINE 20 MG ORAL TABLET 658921 FAMOTIDINE Inactive GLIMEPIRIDE 2 MG ORAL TABLET 1 po BID GLIMEPIRIDE 2 MG ORAL TABLET 145714 GLIMEPIRIDE Inactive LOVENOX 100 MG/ML SUBCUTANEOUS SOLUTION One injection twice a da y LOVENOX 100 MG/ML SUBCUTANEOUS SOLUTION 253024 ENOXAPAR IN SODIUM Inactive Vital Signs Date [...] 4.3-6.0 Encounters Code Encounter Date Provider Facility CPT-24426 [id number]-[id number] Vst-Est Level IV 10:52:00 [employer] Stephy Urbina [facility] CPT-23133 Level 3 Est. Patient 18:25:53 CDT Mitch luis [facility] CPT-58962 Level 3 Est. Patient 19:43:34 CDT Mitch luis [facility] CPT-68831 Level 4 Est. Patient 09:30:18 CDT Mitch luis [facility] CPT-27477 Level 3 Est. Patient 15:10:14 CDT Joe kamara Formerly named [facility] CPT-83076 Level 3 Est. Patient 15:03:46 CDT Joe kaamra Formerly named [facility] CPT-40979 Level 3 Est. Patient 14:21:06 CDT Mitch luis [facility] CPT-48933 Level 3 Est. Patient 14:52:06 CDT Joe kamara Formerly named [facility] CPT-35717 Level 3 Est. Patient 09:34:30 [employer] Mitch luis [facility] CPT-27242 Level 3 Est. Patient 09:37:15 CDT Mitch luis [facility] CPT-53291 Level 3 Est. Patient 17:01:00 [employer] Mitch luis [facility] CPT-77800 Level 3 Est. Patient 13:53:19 [employer] Mitch luis [facility] CPT-64095 Level 3 Est. Patient 19:19:37 [employer] Mitch luis [facility] CPT-50399 Level 3 Est. Patient 13:25:53 [employer] Tavo toure MD [facility] CPT-02988 Level 3 Est. Patient 18:17:28 CDT Mitch Arnol luis [facility] CPT-62558 Level 3 Est. Patient 15:22:57 CDT Mitch Arnol luis [facility] CPT-11561 Level 3 Est. Patient 18:21:50 CDT Mitch luis [facility] CPT-97279 Level 3 Est. Patient 18:20:38 CDT Mitch Arnol luis [facility] CPT-82296 Level 3 Est. Patient 15:37:55 CDT Mitch luis [facility] CPT-29569 Level 2 Est. Patient 15:54:44 CDT Carmine benton MD [facility] CPT-46668 Level 3 Est. Patient 21:46:01 [employer] Mitch luis [facility] CPT-72644 Level 3 Est. Patient 22:15:50 CDT Mitch luis [facility] CPT-54713 Level 3 Est. Patient 10:48:15 CDT Mitch luis [facility] CPT-49606 Level 3 Est. Patient 23:20:57 CDT Tavo toure MD [facility] CPT-36136 Level 3 Est. Patient 16:26:13 CDT Mitch Castellano janelle [facility] Procedures Code Procedure Name Date Entry Date Standard Desc ription CPT-JTINJ Asp/Joint Injection 18:47:02 CDT CPT-41152 Venipuncture Draw Fee 09:26:17 CDT CPT-34039 PT/INR - LAB USE ONLY 13:32:49 [employer] CPT-49617 Venipuncture Draw Fee 13:32:49 [employer] CPT-45502 PT/INR - LAB USE ONLY 10:34:49 [employer] CPT-06426 Venipuncture Draw Fee 10:34:48 [employer] CPT-25478 PT/INR - LAB USE ONLY 09:22:03 [employer] CPT-40095 Venipuncture Draw Fee 09:22:02 [employer] CPT-11530 Hemoccult IFOBT - LAB USE ONLY 10:27:22 CDT CPT-47149 Venipuncture Draw Fee 08:27:08 CDT CPT-52820 Liver Profile - LAB USE ONLY 08:27:07 CDT 2 CPT-84416 Microalbumin - LAB USE ONLY 08:27:07 CDT 20 25/05/09 CPT-51240 PT/INR - LAB USE ONLY 08:27:07 CDT CPT-67881 HGBA1C - LAB USE ONLY 08:27:07 CDT CPT-66788 CBC - LAB USE ONLY 08:27:07 CDT CPT-58729 Venipuncture Draw Fee 11:09:14 CDT CPT-41735 Venipuncture Draw Fee 08:32:21 [employer] CPT-83235 Venipuncture Draw Fee 09:38:56 [employer] CPT-74643 No Charge Offi Visit 21:36:07 CDT 1 CPT-45743 Venipuncture Draw Fee 10:13:28 [employer] CPT-79715 Venipuncture Draw Fee 08:31:11 CDT CPT-16509 Aspir/Inject Med Joint 18:17:28 CDT CPT-16106 Venipuncture Draw Fee 10:13:30 CDT CPT-20838 Venipuncture Draw Fee 08:31:43 [employer] CPT-JTINJ Joint Injection 18:34:50 CDT CPT-36462 Knee 3V 12:25:09 CDT CPT-07746 Venipuncture Draw Fee 12:15:57 CDT CPT-060 Medical Surveillance Exam 21:31:43 CDT 2011 CPT-03161 Venipuncture Draw Fee 08:32:05 [employer] CPT-OV Office Visit 18:19:06 CDT
--- OUTSIDE RECORDS SUMMARY | 2020-01-18 11:47 | XMS REPORT | Clinical Summary ---
Author Author Admin, Mitch Leon Organization [facility] [address] Address Unknown Phone Unavailable Allergies, Adverse Reactions, [...] Coronary atherosclerosis of unspecified type of vessel, [place] or graft EDEMA 782.3 Resolved Mitch Urbina [...] Start Date Stop Date Generic Name [facility] Status Provider Patient Instruction GLIMEPIRIDE 4 MG ORAL TABLET 1 tablet by mouth twice daily f or diabetes GLIMEPIRIDE 83590279251 Active Mitch Urbina DO Active GLIMEPIRIDE 2 MG ORAL TABLET 1 po BID GLIMEPI RIDE 98422388146 No Longer Active Mitch Urbina DO Active AMLODIPINE BESYLATE 5 MG ORAL TABLET 1 tablet by mouth daily AMLODIPINE BESYLATE 33060587788 Active Mitch Urbina DO Active PROVIGIL 200 MG ORAL TABLET 1/2 tab po q day MODA FINIL 44993666746 Active Renee Oconnor LPN Active FAMOTIDINE 20 MG ORAL TABLET by mouth twice a day 2017 FAMOTIDINE 78829574887 No Longer Active Mitch Urbina DO Active COLCRYS 0.6 MG ORAL TABLET 1 tab qid prn gout C OLCHICINE 72100875667 No Longer Active Mitch Urbina DO Active KEFLEX 500 MG ORAL CAPSULE 1 po qid CEPHALEXI N 21549452317 No Longer Active Mitch Urbina DO Active LOSARTAN POTASSIUM 100 MG ORAL TABLET 1 pill by mouth daily, for blood pressure LOSARTAN POTASSIUM 51973299315 Active Ana Ocampo Active AMLODIPINE BESYLATE 5 MG ORAL TABLET 1 tablet by mouth daily 201 01/20/04 AMLODIPINE BESYLATE 48505222800 No Longer Active Joe fulton APRN Active MITIGARE 0.6 MG ORAL CAPSULE 2 capsules at onset of go ut pain, then take one capsule at 1 hour if symptoms persist. 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 MECLIZINE HCL 25 MG ORAL TABLET 1 po tid 3 days, then 1/2 ta b tid 3 days MECLIZINE HCL 06813718027 No Longer Active Corey SEGURA Active ALLOPURINOL 300 MG ORAL TABLET Take 1 tablet by mouth daily 2012 ALLOPURINOL 02810450399 No Longer Active Corey SEGURA Active CLONIDINE HCL 0.1 MG ORAL TABLET 1 po bid 7 days, then 1/2 t ab po bid 7 days CLONIDINE HCL 20384416920 No Longer Active Corey SEGURA Active COUMADIN 5 MG ORAL TABLET 1 tab PO daily WARFAR IN SODIUM 13698049550 Active Renee Elvin DE LA ROSA Active COUMADIN 4 MG ORAL TABLET 1 tablet daily WARFAR IN SODIUM 39175931826 No Longer Active Corey SEGURA Active POLYTRIM 27427-1.1 UNIT/ML-% OPHTHALMIC SOLUTION 1 rui p in affected eye every 3 hours while awake x 7 days POLYMYXIN B-TRIMETHOP RIM 36686865889 No Longer Active Corey SEGURA Active LOSARTAN POTASSIUM-HCTZ 100-12.5 MG ORAL TABLET 1 by m outh daily for high blood pressure LOSARTAN POTASSIUM-HCTZ 87204342525 No Longer A ctive Mitch Urbina DO Active LISINOPRIL-HYDROCHLOROTHIAZIDE 20-12.5 MG ORAL TABLET 1 tab by m outh daily LISINOPRIL-HYDROCHLOROTHIAZIDE 80829016495 No Longer Active Mitch Urbina DO Active LISINOPRIL 20 MG ORAL TABLET 1 tab po at HS LIS INOPRIL 91389619413 No Longer Active Mitch Urbina DO Active COUMADIN 5 MG ORAL TABLET 1 by mouth every other day 2 WARFARIN SODIUM 20152250319 No Longer Active Mitch Urbina DO Active COUMADIN 6 MG ORAL TABLET 1 by mouth every other day 2 WARFARIN SODIUM 85451110717 No Longer Active Mitch Urbina DO Active SIMVASTATIN 40 MG ORAL TABLET 1 tab daily at bedtime SIMVASTATIN 56711673014 Active Mitch Urbina DO Active SIMVASTATIN 20 MG ORAL TABLET 1 tab daily at bedtime 2 SIMVASTATIN 91919828823 No Longer Active Mitch Urbina DO Active LOVENOX 100 MG/ML SUBCUTANEOUS SOLUTION One injection twice a da y ENOXAPARIN SODIUM 26245079726 No Longer Active Carmine Yusuf MD Active JANUVIA 50 MG ORAL TABLET Take one by mouth daily SITAGLIPTIN PHOSPHATE 36170768523 Active Reene Oconnoreder DE LA ROSA Active JANUVIA 100 MG ORAL TABLET 1/2 by mouth every day 2011 SITAGLIPTIN PHOSPHATE 02725651740 No Longer Active Bijal Segal RN Acti ve METFORMIN HCL 500 MG ORAL TABLET 2 by mouth twice daily METFORMIN HCL 02538022422 No Longer Active Renee Oconnor LPN Active COLCRYS 0.6 MG ORAL TABLET 1 po q 6 hours prn gout pain COLCHICINE 27888040844 No Longer Active Camila Reese Active LISINOPRIL 5 MG ORAL TABLET 1 by mouth every day 11/17 LISINOPRIL 55456818983 No Longer Active Nguyenmolly Perez Active KLOR-CON 20 MEQ ORAL PACKET Take one by mouth daily 09/10/08 POTASSIUM CHLORIDE 32360954461 No Longer Active Nguyenmolly Perez Active FUROSEMIDE 40 MG ORAL TABLET 1 by mouth daily F UROSEMIDE 59670226713 No Longer Active Nguyen Ana Active PROVIGIL 100 MG ORAL TABLET Take one by mouth daily 08/20/04 MODAFINIL 66957429618 No Longer Active Mitch Urbina DO Active BACTRIM DS 800-160 MG ORAL TABLET 1 tab by mouth twice daily 201 10/19/09 TRIMETHOPRIM-SULFAMETHOXAZOLE 73463112019 No Longer Active Elian Hays MD Active ADULT ASPIRIN LOW STRENGTH 81 MG ORAL TABLET DISINTEGR ATING 1 by mouth every daily ASPIRIN 33732594503 Active Mitch Urbina DO Ac tive METOPROLOL TARTRATE 50 MG ORAL TABLET 1 by mouth twice daily METOPROLOL TARTRATE 68616625797 Active Ana Terrence Activ e BACTRIM DS 800-160 MG ORAL TABLET 1 tab by mouth twice daily 201 10/19/09 BACTRIM DS 800-160 MG ORAL TABLET 914910 TRIMETHOPRIM-SULFAMETHOXAZOLE Inactive PROVIGIL 100 MG ORAL TABLET Take one by mouth daily 08/20/04 PROVIGIL 100 MG ORAL TABLET 694203 MODAFINIL Inactive FUROSEMIDE 40 MG ORAL TABLET 1 by mouth daily FUROSEMIDE 40 MG ORAL TABLET 043605 FUROSEMIDE Inactive KLOR-CON 20 MEQ ORAL PACKET Take one by mouth daily 09/10/08 KLOR- CON 20 MEQ ORAL PACKET 4188401 POTASSIUM CHLORIDE Inactive LISINOPRIL 5 MG ORAL TABLET 1 by mouth every day 11/17 LISINOPRIL 5 MG ORAL TABLET 975987 LISINOPRIL Inactive COLCRYS 0.6 MG ORAL TABLET 1 po q 6 hours prn gout pain COLCRYS 0.6 MG ORAL TABLET 879229 COLCHICINE Inactive JANUVIA 100 MG ORAL TABLET 1/2 by mouth every day 2011 JANUVIA 100 MG ORAL TABLET SITAGLIPTIN PHOSPHATE Inactive SIMVASTATIN 20 MG ORAL TABLET 1 tab daily at bedtime 2 SIMVASTATIN 20 MG ORAL TABLET 398588 SIMVASTATIN Inactive COUMADIN 6 MG ORAL TABLET 1 by mouth every other day 2 COUMADIN 6 MG ORAL TABLET 890696 WARFARIN SODIUM Inactive COUMADIN 5 MG ORAL TABLET 1 by mouth every other day 2 COUMADIN 5 MG ORAL TABLET 040971 WARFARIN SODIUM Inactive LISINOPRIL 20 MG ORAL TABLET 1 tab po at HS LISINOPRIL 20 MG ORAL TABLET 569013 LISINOPRIL Inactive LISINOPRIL-HYDROCHLOROTHIAZIDE 20-12.5 MG ORAL TABLET 1 tab by m outh daily LISINOPRIL-HYDROCHLOROTHIAZIDE 20-12.5 MG ORAL TABLET 246514 LISINOPRIL-HYDROCHLOROTHIAZIDE Inactive POLYTRIM 25800-5.1 UNIT/ML-% OPHTHALMIC SOLUTION 1 rui p in affected eye every 3 hours while awake x 7 days POLYTRIM 1000 0-0.1 UNIT/ML-% OPHTHALMIC SOLUTION 018995 POLYMYXIN B-TRIMETHOPRIM Inactive COUMADIN 4 MG ORAL TABLET 1 tablet daily COUMADIN 4 MG ORAL TABLET 726204 WARFARIN SODIUM Inactive CLONIDINE HCL 0.1 MG ORAL TABLET 1 po bid 7 days, then 1/2 t ab po bid 7 days CLONIDINE HCL 0.1 MG ORAL TABLET 609595 CLONIDIN E HCL Inactive ALLOPURINOL 300 MG ORAL TABLET Take 1 tablet by mouth daily 2012 ALLOPURINOL 300 MG ORAL TABLET 501791 ALLOPURINOL I nactive MECLIZINE HCL 25 MG ORAL TABLET 1 po tid 3 days, then 1/2 ta b tid 3 days MECLIZINE HCL 25 MG ORAL TABLET 806580 MECLIZINE HCL Inactive AMLODIPINE BESYLATE 5 MG ORAL TABLET 1 tablet by mouth daily 201 01/20/04 AMLODIPINE BESYLATE 5 MG ORAL TABLET 462577 AMLODIPINE BESYLATE Inactive KEFLEX 500 MG ORAL CAPSULE 1 po qid K EFLEX 500 MG ORAL CAPSULE 045036 CEPHALEXIN Inactive COLCRYS 0.6 MG ORAL TABLET 1 tab qid prn gout COLCRYS 0.6 MG ORAL TABLET 587445 COLCHICINE Inactive FAMOTIDINE 20 MG ORAL TABLET by mouth twice a day 2017 FAMOTIDINE 20 MG ORAL TABLET 070859 FAMOTIDINE Inactive GLIMEPIRIDE 2 MG ORAL TABLET 1 po BID GLIMEPIRIDE 2 MG ORAL TABLET 445098 GLIMEPIRIDE Inactive LOVENOX 100 MG/ML SUBCUTANEOUS SOLUTION One injection twice a da y LOVENOX 100 MG/ML SUBCUTANEOUS SOLUTION 519262 ENOXAPAR IN SODIUM Inactive Vital Signs Date [...] 4.3-6.0 Encounters Code Encounter Date Provider Facility CPT-87373 [id number] Vst-Est Level IV 10:52:00 TECHNICAL TRAINING SPECIALIST Stephy Urbina [facility] CPT-33231 Level 3 Est. Patient 18:25:53 CDT Mitch luis [facility] CPT-53365 Level 3 Est. Patient 19:43:34 CDT Mitch luis [facility] CPT-21590 Level 4 Est. Patient 09:30:18 CDT Mitch luis [facility] CPT-74461 Level 3 Est. Patient 15:10:14 CDT oJe kamara [facility] CPT-48464 Level 3 Est. Patient 15:03:46 CDT Joe kamara [facility] CPT-90142 Level 3 Est. Patient 14:21:06 CDT Mitch luis [facility] CPT-12190 Level 3 Est. Patient 14:52:06 CDT Joe kamara [facility] CPT-58948 Level 3 Est. Patient 09:34:30 TECHNICAL TRAINING SPECIALIST Mitch luis [facility] CPT-23457 Level 3 Est. Patient 09:37:15 CDT Mitch luis [facility] CPT-13877 Level 3 Est. Patient 17:01:00 TECHNICAL TRAINING SPECIALIST Mitch luis [facility] CPT-15684 Level 3 Est. Patient 13:53:19 TECHNICAL TRAINING SPECIALIST Mitch luis [facility] CPT-40408 Level 3 Est. Patient 19:19:37 TECHNICAL TRAINING SPECIALIST Mitch luis [facility] CPT-51775 Level 3 Est. Patient 13:25:53 TECHNICAL TRAINING SPECIALIST Tavo toure MD [facility] CPT-71865 Level 3 Est. Patient 18:17:28 CDT Mitch Arnol luis [facility] CPT-70207 Level 3 Est. Patient 15:22:57 CDT Mitch Arnol luis [facility] CPT-57954 Level 3 Est. Patient 18:21:50 CDT Mitch luis [facility] CPT-81426 Level 3 Est. Patient 18:20:38 CDT Mitch Arnol luis [facility] CPT-78392 Level 3 Est. Patient 15:37:55 CDT Mitch luis [facility] CPT-53589 Level 2 Est. Patient 15:54:44 CDT Carmine benton MD [facility] CPT-64719 Level 3 Est. Patient 21:46:01 TECHNICAL TRAINING SPECIALIST Mithc luis [facility] CPT-23888 Level 3 Est. Patient 22:15:50 CDT Mitch luis [facility] CPT-30292 Level 3 Est. Patient 10:48:15 CDT Mitch luis [facility] CPT-08675 Level 3 Est. Patient 23:20:57 CDT Tavo toure MD [facility] CPT-69550 Level 3 Est. Patient 16:26:13 CDT Mitch Castellano janelle [facility] Procedures Code Procedure Name Date Entry Date Standard Desc ription CPT-JTINJ Asp/Joint Injection 18:47:02 CDT CPT-03080 Venipuncture Draw Fee 09:26:17 CDT CPT-31521 PT/INR - LAB USE ONLY 13:32:49 TECHNICAL TRAINING SPECIALIST CPT-06876 Venipuncture Draw Fee 13:32:49 TECHNICAL TRAINING SPECIALIST CPT-77637 PT/INR - LAB USE ONLY 10:34:49 TECHNICAL TRAINING SPECIALIST CPT-04143 Venipuncture Draw Fee 10:34:48 TECHNICAL TRAINING SPECIALIST CPT-90703 PT/INR - LAB USE ONLY 09:22:03 TECHNICAL TRAINING SPECIALIST CPT-12232 Venipuncture Draw Fee 09:22:02 TECHNICAL TRAINING SPECIALIST CPT-77745 Hemoccult IFOBT - LAB USE ONLY 10:27:22 CDT CPT-31282 Venipuncture Draw Fee 08:27:08 CDT CPT-62271 Liver Profile - LAB USE ONLY 08:27:07 CDT 2 CPT-11881 Microalbumin - LAB USE ONLY 08:27:07 CDT 20 25/05/09 CPT-94232 PT/INR - LAB USE ONLY 08:27:07 CDT CPT-61356 HGBA1C - LAB USE ONLY 08:27:07 CDT CPT-54249 CBC - LAB USE ONLY 08:27:07 CDT CPT-48831 Venipuncture Draw Fee 11:09:14 CDT CPT-60068 Venipuncture Draw Fee 08:32:21 TECHNICAL TRAINING SPECIALIST CPT-07729 Venipuncture Draw Fee 09:38:56 TECHNICAL TRAINING SPECIALIST CPT-02597 No Charge Offi Visit 21:36:07 CDT 1 CPT-79167 Venipuncture Draw Fee 10:13:28 TECHNICAL TRAINING SPECIALIST CPT-78127 Venipuncture Draw Fee 08:31:11 CDT CPT-31496 Aspir/Inject Med Joint 18:17:28 CDT CPT-24096 Venipuncture Draw Fee 10:13:30 CDT CPT-36628 Venipuncture Draw Fee 08:31:43 TECHNICAL TRAINING SPECIALIST CPT-JTINJ Joint Injection 18:34:50 CDT CPT-19372 Knee 3V 12:25:09 CDT CPT-57242 Venipuncture Draw Fee 12:15:57 CDT CPT-060 Medical Surveillance Exam 21:31:43 CDT 2011 CPT-82647 Venipuncture Draw Fee 08:32:05 TECHNICAL TRAINING SPECIALIST CPT-OV Office Visit 18:19:06 CDT
--- OUTSIDE RECORDS SUMMARY | 2020-01-18 11:48 | XMS REPORT | Clinical Summary ---
Author Author Admin, Mitch Leon Organization [facility] Address Unknown Phone Unavailable Allergies, Adverse Reactions, [...] Coronary atherosclerosis of unspecified type of vessel, [place] or graft EDEMA 782.3 Active Mitch Urbina [...] DO Olecranon bursitis UNSPECIFIED ANEMIA 285.9 Active Blessing Le R MA Anemia, unspecified Malaise and [...] Rivera MA Long-term (current) use of anticoagulants Medication List Medication Instructions Start Date Stop Date Generic Name NDC Status Provider Patient Instruction AMLODIPINE BESYLATE 5 MG TABS 1 tablet by mouth daily AMLODIPINE BESYLATE 11607285900 Active Domi Rivera MA Active MECLIZINE HCL 25 MG TAB 1 po tid 3 days, then 1/2 tab tid 3 days MECLIZINE HCL 02160786733 No Longer Active Corey SEGURA Active ALLOPURINOL 300 MG TABS Take 1 tablet by mouth daily 2 ALLOPURINOL 46450787245 No Longer Active Corey SEGURA Activ e CLONIDINE HCL 0.1 MG TABS 1 po bid 7 days, then 1/2 tab po b id 7 days CLONIDINE HCL 93444535815 No Longer Active Corey SEGURA Active COUMADIN 5 MG TABS 1 tab PO daily WARFARIN SODIUM 76620566822 Active Mitch Urbina DO Active COUMADIN 4 MG TABS 1 tablet daily WARFARIN SODI UM 25760905043 No Longer Active Corey SEGURA Active POLYTRIM 59147-3.1 UNIT/ML-% SOLN 1 drop in affected e ye every 3 hours while awake x 7 days POLYMYXIN B-TRIMETHOPRIM 19229065397 N o Longer Active Corey SEGURA Active LOSARTAN POTASSIUM-HCTZ 100-12.5 MG TABS 1 by mouth da [place] for high blood pressure LOSARTAN POTASSIUM-HCTZ 40052309905 Active Stephy Urbina DO Active LISINOPRIL-HYDROCHLOROTHIAZIDE 20-12.5 MG TABS 1 tab by mouth da rocky LISINOPRIL-HYDROCHLOROTHIAZIDE 67960210321 No Longer Active Mitch luis DO Active LISINOPRIL 20 MG TABS 1 tab po at HS LISINOPRIL 82406659153 No Longer Active Mitch Urbina DO Active COUMADIN 5 MG TABS 1 by mouth every other day WARFARIN SODIUM 56422973659 No Longer Active Mitch Urbina DO Active COUMADIN 6 MG TABS 1 by mouth every other day WARFARIN SODIUM 73485414881 No Longer Active Mitch Urbina DO Active COLCRYS 0.6 MG TABS 1 tab qid prn gout COLCHICINE 69278399721 Active Corey SEGURA Active SIMVASTATIN 40 MG TABS 1 tab daily at bedtime S IMVASTATIN 37815165301 Active Domi Rivrea MA Active SIMVASTATIN 20 MG TABS 1 tab daily at bedtime S IMVASTATIN 56755137368 No Longer Active Mitch Urbina DO Active LOVENOX 100 MG/ML SC SOLN One injection twice a day 09/15/15 ENOXAPARIN SODIUM 04169542562 No Longer Active Carmine Navarrete ctive JANUVIA 50 MG TABS Take one by mouth daily DIEGO GLIPTIN PHOSPHATE 41494646021 Active Kathie Juan RPT,RMA Active JANUVIA 100 MG TABS 1/2 by mouth every day DIEGO GLIPTIN PHOSPHATE 84303032318 No Longer Active Bijal Segal RN Active METFORMIN HCL 500 MG TABS 2 by mouth twice daily METFORMIN HCL 56499031291 Active Mitch Urbina DO Active GLIMEPIRIDE 4 MG TABS 1 tab po bid GLIMEPIRIDE 713773 99025 Active Mitch Urbina DO Active COLCRYS 0.6 MG TABS 1 po q 6 hours prn gout pain 03/02 COLCHICINE 27954794633 No Longer Active Camila Reese Active LISINOPRIL 5 MG TABS 1 by mouth every day LISIN OPRIL 44286583016 No Longer Active Nguyenmolly Perez Active KLOR-CON 20 MEQ PACK Take one by mouth daily 8 POTASSIUM CHLORIDE 78299502227 No Longer Active Nguyenmolly Perez Active FUROSEMIDE 40 MG TABS 1 by mouth daily FUROSEMI DE 86738419457 No Longer Active Nguyen Perez Active PROVIGIL 200 MG TABS 1/2 tab po q day MODAFINIL 09809 342255 Active Kathie Juan RPT,RMA Active PROVIGIL 100 MG TABS Take one by mouth daily MO DAFINIL 89252463380 No Longer Active Mitch Urbina DO Active BACTRIM DS 800-160 MG TAB 1 tab by mouth twice daily 2 TRIMETHOPRIM-SULFAMETHOXAZOLE 67749091152 No Longer Active Renan Hays MD Active FAMOTIDINE 20 MG TABS by mouth twice a day FAMOTI DINE 64511018800 Active Mitch Urbina DO Active ADULT ASPIRIN LOW STRENGTH 81 MG TBDP 1 by mouth every daily ASPIRIN 02933616338 Active Mitch Urbina DO Active METOPROLOL TARTRATE 50 MG TABS 1 by mouth twice daily METOPROLOL TARTRATE 70224934890 Active Kathie Juan RPT,RMA Acti ve BACTRIM DS 800-160 MG TAB 1 tab by mouth twice daily 2 BACTRIM DS 800-160 MG TAB 431696 TRIMETHOPRIM-SULFAMETHOXAZOLE Inac tive PROVIGIL 100 MG TABS Take one by mouth daily 4 PROVIGIL 100 MG TABS 647910 MODAFINIL Inactive FUROSEMIDE 40 MG TABS 1 by mouth daily FU ROSEMIDE 40 MG TABS 291837 FUROSEMIDE Inactive KLOR-CON 20 MEQ PACK Take one by mouth daily 8 KLOR-CON 20 MEQ PACK 831334 POTASSIUM CHLORIDE Inactive LISINOPRIL 5 MG TABS 1 by mouth every day LISINOPRIL 5 MG TABS 372287 LISINOPRIL Inactive COLCRYS 0.6 MG TABS 1 po q 6 hours prn gout pain 03/02 COLCRYS 0.6 MG TABS 293351 COLCHICINE Inactive JANUVIA 100 MG TABS 1/2 by mouth every day JANUVI A 100 MG TABS SITAGLIPTIN PHOSPHATE Inactive SIMVASTATIN 20 MG TABS 1 tab daily at bedtime SIMVASTATIN 20 MG TABS 627649 SIMVASTATIN Inactive COUMADIN 6 MG TABS 1 by mouth every other day COUMADIN 6 MG TABS 599893 WARFARIN SODIUM Inactive COUMADIN 5 MG TABS 1 by mouth every other day COUMADIN 5 MG TABS 106772 WARFARIN SODIUM Inactive LISINOPRIL 20 MG TABS 1 tab po at HS [place]I NOPRIL 20 MG TABS 199623 LISINOPRIL Inactive LISINOPRIL-HYDROCHLOROTHIAZIDE 20-12.5 MG TABS 1 tab by mouth da rocky LISINOPRIL-HYDROCHLOROTHIAZIDE 20-12.5 MG TABS 986379 LISINOPRIL-HYDROCHLOROTHIAZIDE Inactive POLYTRIM 89783-8.1 UNIT/ML-% SOLN 1 drop in affected e ye every 3 hours while awake x 7 days POLYTRIM 03906-3.1 UNIT/ML-% SOLN 08923 7 POLYMYXIN B-TRIMETHOPRIM Inactive COUMADIN 4 MG TABS 1 tablet daily COUMADIN 4 MG TABS 003268 WARFARIN SODIUM Inactive CLONIDINE HCL 0.1 MG TABS 1 po bid 7 days, then 1/2 tab po b id 7 days CLONIDINE HCL 0.1 MG TABS 495453 CLONIDINE HCL I nactive ALLOPURINOL 300 MG TABS Take 1 tablet by mouth daily 2 ALLOPURINOL 300 MG TABS 631868 ALLOPURINOL Inactive MECLIZINE HCL 25 MG TAB 1 po tid 3 days, then 1/2 tab tid 3 days MECLIZINE HCL 25 MG TAB 656363 MECLIZINE HCL Inactive LOVENOX 100 MG/ML SC SOLN One injection twice a day 09/15/15 LOVENOX 100 MG/ML SC SOLN 757885 ENOXAPARIN SODIUM Inactive Vital Signs Date Name [...] Range Description Chart Maintenance: Hemoccult added to jemma robison - Chemistry occult blood, stool (E&M) Positive Lab Report: CBC W/DIFF - Hematology monocytes as percent of blood leukocytes 7.3 [...] 11 .6-14.8 platelet count 283 10^3/MM^3 10*3/mm3 680-280 0536/03/27 neutrophils as percent of blood leukocytes 69.3 % 42.2-75.2 leukocyte count, blood 6.2 10^3/MM^3 10*3/mm3 4.6-10.2 Lab Report: CBC, Comp. Metabolic Panel, Prostatic Specific Ag - Chemistry sodium, serum 141 mmol/L 926-649 3526/07/06 potassium, serum 4.4 mmol/L 3.5-5.2 chloride, serum [...] count 269 10^3/MM^3 10*3/mm3 142-424 Lab Report: HGBA1C - Chemistry hemoglobin A1C, blood, as % of total hemoglobin 7.3 % 4.3-6.0 Lab Report: HGBA1C, Lipid Panel - Chemis try hemoglobin A1C, blood, as % of total hemoglobin 7.0 % 4.3-6.0 cholesterol, serum 120 mg/dL 687-173 3519/07/06 triglyceride, serum, fasting 186 mg/dL 30-200 HDL cholesterol, serum 34 mg/dL 32-96 LDL cholesterol, serum 49 mg/dL 0-130 Lab Report: MICROALBUMIN - Chemistry albumin/creatinine ratio, urine < 30 mg/g mg/g{creat} 0-2 9 Lab Report: MICROALBUMIN - Lab microalbumin, urine 30 0-19 Lab Report: Prothrombin Time - Coagulati on international normalized ratio (INR) 2.6 1.0-3.5 prothrombin time (patient) 20.1 SECS s 11.1-13.4 prothrombin time (patient) 18.6 SECS s 11.1-13.4 international normalized ratio (INR) 2.3 1.0-3.5 prothrombin time (patient) 18.1 SECS s 11.1-13.4 international normalized ratio (INR) 2.2 1.0-3.5 prothrombin time (patient) 18.6 SECS s 11.1-13.4 international normalized ratio (INR) 2.2 1.0-3.5 prothrombin time (patient) 17.1 SECS s 11.1-13.4 international normalized ratio (INR) 2.0 1.0-3.5 prothrombin time (patient) 18.9 SECS s 11.1-13.4 international normalized ratio (INR) 2.4 1.0-3.5 Encounters Code Encounter Date Provider Facility CPT-12454 Level 3 Est. Patient 09:37:15 CDT Mitch luis [facility] [address] CPT-20377 Level 3 Est. Patient 17:01:00 DIAGNOSTIC TECHNOLOGIST Mitch luis [facility] CPT-49446 Level 3 Est. Patient 13:53:19 DIAGNOSTIC TECHNOLOGIST Mitch luis [facility] CPT-61461 Level 3 Est. Patient 19:19:37 DIAGNOSTIC TECHNOLOGIST Mitch luis [facility] CPT-39624 Level 3 Est. Patient 13:25:53 DIAGNOSTIC TECHNOLOGIST Tavo toure MD [facility] CPT-70531 Level 3 Est. Patient 18:17:28 CDT Mitch luis [facility] CPT-18182 Level 3 Est. Patient 15:22:57 CDT Mitch luis [facility] [address] CPT-91740 Level 3 Est. Patient 18:21:50 CDT Mitch luis [facility] [address] CPT-43454 Level 3 Est. Patient 18:20:38 CDT Mitch luis [facility] [address] CPT-02175 Level 3 Est. Patient 15:37:55 CDT Mitch lius [facility] CPT-25984 Level 2 Est. Patient 15:54:44 CDT Carmine benton MD [facility] CPT-16519 Level 3 Est. Patient 21:46:01 DIAGNOSTIC TECHNOLOGIST Mitch luis [facility] CPT-24748 Level 3 Est. Patient 22:15:50 CDT Mitch luis [facility] CPT-52781 Level 3 Est. Patient 10:48:15 CDT Mitch luis [facility] CPT-97377 Level 3 Est. Patient 23:20:57 CDT Tavo toure MD [facility] CPT-57062 Level 3 Est. Patient 16:26:13 CDT Mitch luis [facility] Procedures Code Procedure Name Date Entry Date Standard Desc ription CPT-36684 No Charge Offi Visit 21:36:07 CDT 1 CPT-61153 Venipuncture Draw Fee 10:13:28 DIAGNOSTIC TECHNOLOGIST CPT-43957 Venipuncture Draw Fee 08:31:11 CDT CPT-14642 Aspir/Inject Med Joint 18:17:28 CDT CPT-00683 Venipuncture Draw Fee 10:13:30 CDT CPT-14165 Venipuncture Draw Fee 08:31:43 DIAGNOSTIC TECHNOLOGIST CPT-JTINJ Joint Injection 18:34:50 CDT CPT-96938 Knee 3V 12:25:09 CDT CPT-38698 Venipuncture Draw Fee 12:15:57 CDT CPT-060 Medical Surveillance Exam 21:31:43 CDT 2011 CPT-21505 Venipuncture Draw Fee 08:32:05 DIAGNOSTIC TECHNOLOGIST CPT-OV Office Visit 18:19:06 CDT
--- OUTSIDE RECORDS SUMMARY | 2020-01-18 11:48 | XMS REPORT | Clinical Summary ---
Author Author Admin, Mitch Leon Organization [facility] Address Unknown Phone Unavailable Allergies, Adverse Reactions, [...] HISTORY COLON CANCER-MOTHER V16.0 Active 2 Renan Hasy MD Family history of malignant neoplasm of [...] Coronary atherosclerosis of unspecified type of vessel, bois forte or graft EDEMA 782.3 Resolved Mitch Urbina [...] and fatigue 780.79 Resolved Mitch Arnol Urbina Ileana O Other malaise and fatigue Cough, chronic [...] by other means Narcolepsy 347.00 Active Mitch Ambrose Carlitos VELASQUEZ Narcolepsy without cataplexy CELLULITIS, GROIN, LEFT ICD-682.2 [...] tab to equal 7mg daily WARFARIN SODIUM 99211979888 Active Mitch Urbina DO Active COLCRYS 0.6 MG TABS 1 tab qid prn gout COLCHICINE 28040240056 Active Kathie Juan RPT,RMA Active INVOKANA 100 MG ORAL TABS 1 tablet orally daily CANAGLIFLOZIN 67438738851 Active Mitch Urbina DO Active MINOXIDIL 2.5 MG TABS 1 tablet daily for high blood pressure 10/23 MINOXIDIL 38236586442 Active Domi Rivera MA Active AMLODIPINE BESYLATE 5 MG TABS 1 tablet by mouth daily AMLODIPINE BESYLATE 58770366878 Active Mitch Urbina DO Active MECLIZINE HCL 25 MG TAB 1 po tid 3 days, then 1/2 tab tid 3 days MECLIZINE HCL 20523781759 No Longer Active Corey SEGURA Active ALLOPURINOL 300 MG TABS Take 1 tablet by mouth daily 2 ALLOPURINOL 40109818336 No Longer Active Corey SEGURA Activ e CLONIDINE HCL 0.1 MG TABS 1 po bid 7 days, then 1/2 tab po b id 7 days CLONIDINE HCL 40502164440 No Longer Active Corey SEGURA Active COUMADIN 5 MG TABS 1 tab PO daily WARFARIN SODIUM 94629637061 Active Mitch Urbina DO Active COUMADIN 4 MG TABS 1 tablet daily WARFARIN SODI UM 34532985303 No Longer Active Corey SEGURA Active POLYTRIM 06003-0.1 UNIT/ML-% SOLN 1 drop in affected e ye every 3 hours while awake x 7 days POLYMYXIN B-TRIMETHOPRIM 25881338832 N o Longer Active Corey SEGURA Active LOSARTAN POTASSIUM-HCTZ 100-12.5 MG TABS 1 by mouth da rocky for high blood pressure LOSARTAN POTASSIUM-HCTZ 52950466311 Active Stephy Urbina DO Active LISINOPRIL-HYDROCHLOROTHIAZIDE 20-12.5 MG TABS 1 tab by mouth da rocky LISINOPRIL-HYDROCHLOROTHIAZIDE 08167055920 No Longer Active Mitch luis DO Active LISINOPRIL 20 MG TABS 1 tab po at HS LISINOPRIL 66704652891 No Longer Active Mitch Urbina DO Active COUMADIN 5 MG TABS 1 by mouth every other day WARFARIN SODIUM 61014088452 No Longer Active Mitch Urbina DO Active COUMADIN 6 MG TABS 1 by mouth every other day WARFARIN SODIUM 98212065238 No Longer Active Mitch W Carlitos DO Active SIMVASTATIN 40 MG TABS 1 tab daily at bedtime S IMVASTATIN 58611724131 Active Mitch Urbina DO Active SIMVASTATIN 20 MG TABS 1 tab daily at bedtime S IMVASTATIN 15243011517 No Longer Active Mitch Urbina DO Active LOVENOX 100 MG/ML SC SOLN One injection twice a day 09/15/15 ENOXAPARIN SODIUM 85984841000 No Longer Active Carmine Navarrete ctive JANUVIA 50 MG TABS Take one by mouth daily DIEGO GLIPTIN PHOSPHATE 82729433481 Active Mitch Urbina DO Active JANUVIA 100 MG TABS 1/2 by mouth every day DIEGO GLIPTIN PHOSPHATE 14837024060 No Longer Active Bijal Segal RN Active METFORMIN HCL 500 MG TABS 2 by mouth twice daily METFORMIN HCL 62273074649 Active Mitch Urbina DO Active GLIMEPIRIDE 4 MG TABS 1 tab po bid GLIMEPIRIDE 561791 96701 Active Mitch Urbina DO Active COLCRYS 0.6 MG TABS 1 po q 6 hours prn gout pain 03/02 COLCHICINE 72175615285 No Longer Active Camila Reese Active LISINOPRIL 5 MG TABS 1 by mouth every day LISIN OPRIL 77867315362 No Longer Active Nguyen Perez Active KLOR-CON 20 MEQ PACK Take one by mouth daily 8 POTASSIUM CHLORIDE 76490043942 No Longer Active Nguyen Perez Active FUROSEMIDE 40 MG TABS 1 by mouth daily FUROSEMI DE 14755293413 No Longer Active Nguyenmolly Perez Active PROVIGIL 200 MG TABS 1/2 tab po q day MODAFINIL 55469 362326 Active Mitch Urbina DO Active PROVIGIL 100 MG TABS Take one by mouth daily MO DAFINIL 58873179245 No Longer Active Mitch Ubrina DO Active BACTRIM DS 800-160 MG TAB 1 tab by mouth twice daily 2 TRIMETHOPRIM-SULFAMETHOXAZOLE 94902781011 No Longer Active Renan Hays MD Active FAMOTIDINE 20 MG TABS by mouth twice a day FAMOTI DINE 12944961998 Active Mitch Urbina DO Active ADULT ASPIRIN LOW STRENGTH 81 MG TBDP 1 by mouth every daily ASPIRIN 21050366304 Active Mitch Urbina DO Active METOPROLOL TARTRATE 50 MG TABS 1 by mouth twice daily METOPROLOL TARTRATE 19925083175 Active Mitch Urbina DO Active BACTRIM DS 800-160 MG TAB 1 tab by mouth twice daily 2 BACTRIM DS 800-160 MG TAB 766721 TRIMETHOPRIM-SULFAMETHOXAZOLE Inac tive PROVIGIL 100 MG TABS Take one by mouth daily 4 PROVIGIL 100 MG TABS 286967 MODAFINIL Inactive FUROSEMIDE 40 MG TABS 1 by mouth daily FU ROSEMIDE 40 MG TABS 376030 FUROSEMIDE Inactive KLOR-CON 20 MEQ PACK Take one by mouth daily 8 KLOR-CON 20 MEQ PACK 160310 POTASSIUM CHLORIDE Inactive LISINOPRIL 5 MG TABS 1 by mouth every day LISINOPRIL 5 MG TABS 539314 LISINOPRIL Inactive COLCRYS 0.6 MG TABS 1 po q 6 hours prn gout pain 03/02 COLCRYS 0.6 MG TABS 739482 COLCHICINE Inactive JANUVIA 100 MG TABS 1/2 by mouth every day JANUVI A 100 MG TABS SITAGLIPTIN PHOSPHATE Inactive SIMVASTATIN 20 MG TABS 1 tab daily at bedtime SIMVASTATIN 20 MG TABS 667203 SIMVASTATIN Inactive COUMADIN 6 MG TABS 1 by mouth every other day COUMADIN 6 MG TABS 280894 WARFARIN SODIUM Inactive COUMADIN 5 MG TABS 1 by mouth every other day COUMADIN 5 MG TABS 188561 WARFARIN SODIUM Inactive LISINOPRIL 20 MG TABS 1 tab po at HS KOKI NOPRIL 20 MG TABS 977041 LISINOPRIL Inactive LISINOPRIL-HYDROCHLOROTHIAZIDE 20-12.5 MG TABS 1 tab by mouth da rocky LISINOPRIL-HYDROCHLOROTHIAZIDE 20-12.5 MG TABS 739882 LISINOPRIL-HYDROCHLOROTHIAZIDE Inactive POLYTRIM 28837-3.1 UNIT/ML-% SOLN 1 drop in affected e ye every 3 hours while awake x 7 days POLYTRIM 57327-8.1 UNIT/ML-% SOLN 20834 7 POLYMYXIN B-TRIMETHOPRIM Inactive COUMADIN 4 MG TABS 1 tablet daily COUMADIN 4 MG TABS 716704 WARFARIN SODIUM Inactive CLONIDINE HCL 0.1 MG TABS 1 po bid 7 days, then 1/2 tab po b id 7 days CLONIDINE HCL 0.1 MG TABS 014173 CLONIDINE HCL I nactive ALLOPURINOL 300 MG TABS Take 1 tablet by mouth daily 2 ALLOPURINOL 300 MG TABS 655446 ALLOPURINOL Inactive MECLIZINE HCL 25 MG TAB 1 po tid 3 days, then 1/2 tab tid 3 days MECLIZINE HCL 25 MG TAB 691551 MECLIZINE HCL Inactive LOVENOX 100 MG/ML SC SOLN One injection twice a day 09/15/15 LOVENOX 100 MG/ML SC SOLN 805157 ENOXAPARIN SODIUM Inactive Vital Signs Date Name Value Unit Range Description blood pressure, diastolic - 8462-4 70 mm[Hg] [...] Description Chart Maintenance: hemoccult added to fl enriqueta - Chemistry occult blood, stool (E&M) Positive [...] - Chem istry sodium, serum 136 mmol/L 858-465 3418/01/14 carbon dioxide, venous blood 25.4 mmol/L 21.0-32 [...] CBC - Chemistry cholesterol, serum 136 mg/dL 989-105 4186/08/09 triglyceride, serum, fasting 187 mg/dL 30-200 HDL [...] ratio (INR) 1.5 1.0-3.5 prothrombin time (patient) 17.1 SECS s [...] 1.0-3.5 Encounters Code Encounter Date Provider Facility CPT-47123 Level 3 Est. Patient 14:21:06 CDT Mitch Ambrose L janelle [facility] CPT-49526 Level 3 Est. Patient 14:52:06 CDT Joe kamara APRN [facility]-81964 Level 3 Est. Patient 09:34:30 COSTUME RENTAL CLERK Mitch Ambrose L janelle [facility] CPT-39456 Level 3 Est. Patient 09:37:15 CDT Mitch Ambrose L ee [facility]-67363 Level 3 Est. Patient 17:01:00 COSTUME RENTAL CLERK Mitch Ambrose L janelle [facility] CPT-33822 Level 3 Est. Patient 13:53:19 COSTUME RENTAL CLERK Mitch W L janelle [facility] CPT-45579 Level 3 Est. Patient 19:19:37 COSTUME RENTAL CLERK Mitch W L janelle [facility] CPT-64662 Level 3 Est. Patient 13:25:53 COSTUME RENTAL CLERK Tavo toure MD [facility] CPT-21048 Level 3 Est. Patient 18:17:28 CDT Mitch W L janelle [facility] CPT-83090 Level 3 Est. Patient 15:22:57 CDT Mitch W L janelle [facility] CPT-66890 Level 3 Est. Patient 18:21:50 CDT Mitch W L janelle [facility] CPT-38904 Level 3 Est. Patient 18:20:38 CDT Mitch W L ee [facility] CPT-09993 Level 3 Est. Patient 15:37:55 CDT Mitch W L ee [facility] CPT-60092 Level 2 Est. Patient 15:54:44 CDT Carmine benton MD [facility] CPT-85690 Level 3 Est. Patient 21:46:01 COSTUME RENTAL CLERK Mitch luis [facility] CPT-36063 Level 3 Est. Patient 22:15:50 CDT Mitch Arnol luis [facility] CPT-93741 Level 3 Est. Patient 10:48:15 CDT Mitch luis [facility] CPT-28409 Level 3 Est. Patient 23:20:57 CDT Tavo toure MD [facility] CPT-73269 Level 3 Est. Patient 16:26:13 CDT Mitch luis [facility] Procedures Code Procedure Name Date Entry Date Standard Desc ription CPT-37869 Hemoccult IFOBT - LAB USE ONLY 10:27:22 CDT CPT-22652 Venipuncture Draw Fee 08:27:08 CDT CPT-77650 Liver Profile - LAB USE ONLY 08:27:07 CDT 2 CPT-56414 Microalbumin - LAB USE ONLY 08:27:07 CDT 20 25/05/09 CPT-29263 PT/INR - LAB USE ONLY 08:27:07 CDT CPT-40821 HGBA1C - LAB USE ONLY 08:27:07 CDT CPT-23175 CBC - LAB USE ONLY 08:27:07 CDT CPT-14053 Venipuncture Draw Fee 11:09:14 CDT CPT-88177 Venipuncture Draw Fee 08:32:21 COSTUME RENTAL CLERK CPT-63368 Venipuncture Draw Fee 09:38:56 COSTUME RENTAL CLERK CPT-10601 No Charge Offi Visit 21:36:07 CDT 1 CPT-64591 Venipuncture Draw Fee 10:13:28 COSTUME RENTAL CLERK CPT-38330 Venipuncture Draw Fee 08:31:11 CDT CPT-20117 Aspir/Inject Med Joint 18:17:28 CDT CPT-81646 Venipuncture Draw Fee 10:13:30 CDT CPT-73625 Venipuncture Draw Fee 08:31:43 COSTUME RENTAL CLERK CPT-JTINJ Joint Injection 18:34:50 CDT CPT-86858 Knee 3V 12:25:09 CDT CPT-46383 Venipuncture Draw Fee 12:15:57 CDT CPT-060 Medical Surveillance Exam 21:31:43 CDT 2011 CPT-90141 Venipuncture Draw Fee 08:32:05 COSTUME RENTAL CLERK CPT-OV Office Visit 18:19:06 CDT
--- OUTSIDE RECORDS SUMMARY | 2020-01-18 11:48 | XMS REPORT | Clinical Summary ---
Author Author Admin, Mitch Leon Organization [facility] Address Unknown Phone Unavailable Allergies, Adverse Reactions, [...] Coronary atherosclerosis of unspecified type of vessel, rincon or graft EDEMA 782.3 Resolved Mitch Urbina [...] Urbina DO Body Mass Index 32.0-32.9, adult Obesity Class I (BMI 30-34.9) Active Mitch Arnol Urbina DO Obesity, unspecified Bronchitis, allergic 493.90 Active Becky Sell A PRN Asthma, unspecified Influenza Vaccination for Prophylaxis V04.81 Inactive Mitch Urbina DO Need for prophylactic vaccin ation and inoculation against influenza Hypercalcemia 275.42 Active Adrianna Isidro MA Hypercalcemia CELLULITIS, GROIN, LEFT ICD-682.2 Inactive Zoya Urbina DO SEROMA ICD-998.13 Inactive Mitch Urbina DO REACTIVE HYPOGLYCEMIA ICD-251.2 Inactive Mitch Urbina DO LONG-TERM (CURRENT) USE OF ANTICOAGULANTS ICD-V58.61 Inactive Mitch Urbina DO EDEMA ICD-782.3 Inactive Mitch Urbina DO DIZZINESS ICD-780.4 Inactive Mitch Urbina DO 10/23 GOUT, RIGHT WRIST ICD-274.9 Inactive Mitch Ambrose Lenore ponce DO BRUISE ICD-924.9 Inactive Mitch Urbina DO OLECRANON BURSITIS, RIGHT ICD-726.33 Inactive Mitch Urbina DO UNSPECIFIED ANEMIA ICD-285.9 Inactive Mitch luis DO Malaise and fatigue ICD-780.79 Inactive Mitch Urbina DO Cough, chronic ICD-786.2 Inactive Mitch Tejeda O Sebaceous cyst, infected ICD-706.2 Inactive Mitch Urbina DO Cellulitis ICD-682.9 Inactive Mitch Urbina DO 10/23 Influenza Vaccination for Prophylaxis ICD-V04.81 9 Inactive Bhumi Robles Medication List Medication Instructions Start Date Stop Date Generic Name NDC Status Provider Patient Instruction AMLODIPINE BESYLATE 5 MG ORAL TABLET 1 tablet by mouth daily 201 05/19/02 AMLODIPINE BESYLATE 98035679991 No Longer Active Maria Briones Active WARFARIN TABS 1MG TAKE 2 TABLETS (2 MG) DAILY WITH THE 5 MG TABLET TO EQUAL 7 MG DAILY WARFARIN SODIUM 15735203968 Active Maria Briones Active WARFARIN SODIUM 5 MG TABS TAKE 1 TABLET DAILY W ARFARIN SODIUM 78939777845 Active Allison PERERA Active KEFLEX 500 MG ORAL CAPSULE 1 capsule by mouth three times da rocky x10 days CEPHALEXIN 73091521850 Active Maria Rivas RN Active METOPROLOL TARTRATE TABS 50MG TAKE 1 TABLET TWICE A DAY ([facility] WORK) METOPROLOL TARTRATE 15997336853 Active Maria Briones Active DOXAZOSIN MESYLATE 2 MG ORAL TABLET 1 po q day for pr ostate and blood pressure DOXAZOSIN MESYLATE 64827719712 Active Mitch Urbina DO Active LOSARTAN TABS 100MG TAKE 1 TABLET DAILY FOR BLOOD PRESSURE LOSARTAN POTASSIUM 15947344258 Active Maria Rivas RN Active FLUTICASONE PROPIONATE 50 MCG/ACT NASAL SUSPENSION 1 s pray each nostril twice daily for 1 week, then once daily FLUTICASONE UT OPIONATE 54015524716 Active Becky Sell 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 PREDNISONE 20 MG ORAL TABLET 2 tabs daily for 3 days 1 tab d aily for 3 days PREDNISONE 36498562337 No Longer Active Becky Sell 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 MINOXIDIL 2.5 MG ORAL TABLET 1 tablet twice daily for high b lood pressure MINOXIDIL 24087840831 Active Mitch Urbina DO Ac tive METFORMIN HCL ER 500 MG ORAL TABLET EXTENDED RELEASE 2 4 HOUR 2 tablets by mouth twice daily METFORMIN HCL 45229298712 Active Mitch Urbina DO Active GLIMEPIRIDE 4 MG ORAL TABLET 1 tablet by mouth twice daily f or diabetes GLIMEPIRIDE 21368316495 Active Mitch Urbina DO Active GLIMEPIRIDE 2 MG ORAL TABLET 1 po BID GLIMEPI RIDE 52045608505 No Longer Active Mitch Urbina DO Active PROVIGIL 200 MG ORAL TABLET 1/2 tab po q day MODA FINIL 26427580427 Active Maria Rivas RN Active FAMOTIDINE 20 MG ORAL TABLET by mouth twice a day 2017 FAMOTIDINE 18185773967 No Longer Active Mitch Urbina DO Active COLCRYS 0.6 MG ORAL TABLET 1 tab qid prn gout C OLCHICINE 89516080775 No Longer Active Mitch Urbina DO Active KEFLEX 500 MG ORAL CAPSULE 1 po qid CEPHALEXI N 71885062478 No Longer Active Mitch Urbina DO Active AMLODIPINE BESYLATE 5 MG ORAL TABLET 1 tablet by mouth daily 201 01/20/04 AMLODIPINE BESYLATE 61996600763 No Longer Active Joe fulton 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 COLCHICINE 59 142083398 Active Mitch Urbina DO Active INVOKANA 100 MG ORAL TABLET 1 tablet orally daily CANAGLIFLOZIN 20783631985 Active Mitch Urbina DO Active MECLIZINE HCL 25 MG ORAL TABLET 1 po tid 3 days, then 1/2 ta b tid 3 days MECLIZINE HCL 56582656105 No Longer Active Corey SEGURA Active ALLOPURINOL 300 MG ORAL TABLET Take 1 tablet by mouth daily 2012 ALLOPURINOL 53120072877 No Longer Active Corey SEGURA Active CLONIDINE HCL 0.1 MG ORAL TABLET 1 po bid 7 days, then 1/2 t ab po bid 7 days CLONIDINE HCL 85341183291 No Longer Active Corey SEGURA Active COUMADIN 4 MG ORAL TABLET 1 tablet daily WARFAR IN SODIUM 17393268805 No Longer Active Corey SEGURA Active POLYTRIM 83644-3.1 UNIT/ML-% OPHTHALMIC SOLUTION 1 rui p in affected eye every 3 hours while awake x 7 days POLYMYXIN B-TRIMETHOP RIM 22597136216 No Longer Active Corey SEGURA Active LOSARTAN POTASSIUM-HCTZ 100-12.5 MG ORAL TABLET 1 by m outh daily for high blood pressure LOSARTAN POTASSIUM-HCTZ 86629403556 No Longer A ctive Mitch Urbina DO Active LISINOPRIL-HYDROCHLOROTHIAZIDE 20-12.5 MG ORAL TABLET 1 tab by m outh daily LISINOPRIL-HYDROCHLOROTHIAZIDE 16623530276 No Longer Active Mitch Urbina DO Active LISINOPRIL 20 MG ORAL TABLET 1 tab po at HS LIS INOPRIL 25664111704 No Longer Active Mitch Urbina DO Active COUMADIN 5 MG ORAL TABLET 1 by mouth every other day 2 WARFARIN SODIUM 86565690205 No Longer Active Mitch Urbina DO Active COUMADIN 6 MG ORAL TABLET 1 by mouth every other day 2 WARFARIN SODIUM 50122754848 No Longer Active Mitch Urbina DO Active SIMVASTATIN 40 MG ORAL TABLET 1 tab daily at bedtime SIMVASTATIN 31936823849 Active Maria Rivas RN Active SIMVASTATIN 20 MG ORAL TABLET 1 tab daily at bedtime 2 SIMVASTATIN 16333843739 No Longer Active Mitch Urbina DO Active LOVENOX 100 MG/ML SUBCUTANEOUS SOLUTION One injection twice a da y ENOXAPARIN SODIUM 23195437420 No Longer Active Carmine Yusuf MD Active JANUVIA 50 MG ORAL TABLET Take one by mouth daily SITAGLIPTIN PHOSPHATE 90383939725 Active Renee Oconnoreder DE LA ROSA Active JANUVIA 100 MG ORAL TABLET 1/2 by mouth every day 2011 SITAGLIPTIN PHOSPHATE 37920877657 No Longer Active Bijal Segal RN Acti ve METFORMIN HCL 500 MG ORAL TABLET 2 by mouth twice daily METFORMIN HCL 13223038511 No Longer Active Renee Oconnor LPN Active COLCRYS 0.6 MG ORAL TABLET 1 po q 6 hours prn gout pain COLCHICINE 93161427998 No Longer Active Camila Reese Active LISINOPRIL 5 MG ORAL TABLET 1 by mouth every day 11/17 LISINOPRIL 94508398156 No Longer Active Nguyen Perez Active KLOR-CON 20 MEQ ORAL PACKET Take one by mouth daily 20 09/10/08 POTASSIUM CHLORIDE 46344401472 No Longer Active Nguyen Perez Active FUROSEMIDE 40 MG ORAL TABLET 1 by mouth daily F UROSEMIDE 50919735200 No Longer Active Nguyen Perez Active PROVIGIL 100 MG ORAL TABLET Take one by mouth daily 20 08/20/04 MODAFINIL 32321598430 No Longer Active Mitch Urbina DO Active BACTRIM DS 800-160 MG ORAL TABLET 1 tab by mouth twice daily 201 10/19/09 TRIMETHOPRIM-SULFAMETHOXAZOLE 20765685307 No Longer Active C alberto Hays MD Active ADULT ASPIRIN LOW STRENGTH 81 MG ORAL TABLET DISINTEGR ATING 1 by mouth every daily ASPIRIN 26102350421 Active Mitch Urbina DO Ac tive BACTRIM DS 800-160 MG ORAL TABLET 1 tab by mouth twice daily 201 10/19/09 BACTRIM DS 800-160 MG ORAL TABLET 435978 TRIMETHOPRIM-SULFAMETHOXAZOLE Inactive PROVIGIL 100 MG ORAL TABLET Take one by mouth daily 08/20/04 PROVIGIL 100 MG ORAL TABLET 959079 MODAFINIL Inactive FUROSEMIDE 40 MG ORAL TABLET 1 by mouth daily FUROSEMIDE 40 MG ORAL TABLET 450564 FUROSEMIDE Inactive KLOR-CON 20 MEQ ORAL PACKET Take one by mouth daily 09/10/08 KLOR- CON 20 MEQ ORAL PACKET 8522404 POTASSIUM CHLORIDE Inactive LISINOPRIL 5 MG ORAL TABLET 1 by mouth every day 11/17 LISINOPRIL 5 MG ORAL TABLET 902505 LISINOPRIL Inactive COLCRYS 0.6 MG ORAL TABLET 1 po q 6 hours prn gout pain COLCRYS 0.6 MG ORAL TABLET 487724 COLCHICINE Inactive JANUVIA 100 MG ORAL TABLET 1/2 by mouth every day 2011 JANUVIA 100 MG ORAL TABLET SITAGLIPTIN PHOSPHATE Inactive SIMVASTATIN 20 MG ORAL TABLET 1 tab daily at bedtime 2 SIMVASTATIN 20 MG ORAL TABLET 988454 SIMVASTATIN Inactive COUMADIN 6 MG ORAL TABLET 1 by mouth every other day COUMADIN 6 MG ORAL TABLET 595003 WARFARIN SODIUM Inactive COUMADIN 5 MG ORAL TABLET 1 by mouth every other day 2 COUMADIN 5 MG ORAL TABLET 705151 WARFARIN SODIUM Inactive LISINOPRIL 20 MG ORAL TABLET 1 tab po at HS LISINOPRIL 20 MG ORAL TABLET 145057 LISINOPRIL Inactive LISINOPRIL-HYDROCHLOROTHIAZIDE 20-12.5 MG ORAL TABLET 1 tab by m outh daily LISINOPRIL-HYDROCHLOROTHIAZIDE 20-12.5 MG ORAL TABLET 045786 LISINOPRIL-HYDROCHLOROTHIAZIDE Inactive POLYTRIM 10239-5.1 UNIT/ML-% OPHTHALMIC SOLUTION 1 rui p in affected eye every 3 hours while awake x 7 days POLYTRIM 1000 0-0.1 UNIT/ML-% OPHTHALMIC SOLUTION 238492 POLYMYXIN B-TRIMETHOPRIM Inactive COUMADIN 4 MG ORAL TABLET 1 tablet daily COUMADIN 4 MG ORAL TABLET 959629 WARFARIN SODIUM Inactive CLONIDINE HCL 0.1 MG ORAL TABLET 1 po bid 7 days, then 1/2 t ab po bid 7 days CLONIDINE HCL 0.1 MG ORAL TABLET 177126 CLONIDIN E HCL Inactive ALLOPURINOL 300 MG ORAL TABLET Take 1 tablet by mouth daily 2012 ALLOPURINOL 300 MG ORAL TABLET 600425 ALLOPURINOL I nactive MECLIZINE HCL 25 MG ORAL TABLET 1 po tid 3 days, then 1/2 ta b tid 3 days MECLIZINE HCL 25 MG ORAL TABLET 705822 MECLIZINE HCL Inactive AMLODIPINE BESYLATE 5 MG ORAL TABLET 1 tablet by mouth daily 201 01/20/04 AMLODIPINE BESYLATE 5 MG ORAL TABLET 662528 AMLODIPINE BESYLATE Inactive KEFLEX 500 MG ORAL CAPSULE 1 po qid K EFLEX 500 MG ORAL CAPSULE 722231 CEPHALEXIN Inactive COLCRYS 0.6 MG ORAL TABLET 1 tab qid prn gout COLCRYS 0.6 MG ORAL TABLET 576006 COLCHICINE Inactive FAMOTIDINE 20 MG ORAL TABLET by mouth twice a day 2017 FAMOTIDINE 20 MG ORAL TABLET 388951 FAMOTIDINE Inactive GLIMEPIRIDE 2 MG ORAL TABLET 1 po BID GLIMEPIRIDE 2 MG ORAL TABLET 299360 GLIMEPIRIDE Inactive AMLODIPINE BESYLATE 5 MG ORAL TABLET 1 tablet by mouth daily 201 05/19/02 AMLODIPINE BESYLATE 5 MG ORAL TABLET 519870 AMLODIPINE BESYLATE Inactive LOVENOX 100 MG/ML SUBCUTANEOUS SOLUTION One injection twice a da y LOVENOX 100 MG/ML SUBCUTANEOUS SOLUTION 401784 ENOXAPAR IN SODIUM Inactive PREDNISONE 20 MG ORAL TABLET 2 tabs daily for 3 days 1 tab d aily for 3 days PREDNISONE 20 MG ORAL TABLET 170788 PREDNISONE Inactive Advance Directives Directive Description Start Date PERMISSION TO SHARE Immunizations Vaccine Administration Date Value Standard Geovanny cription influenza immunization (Flu Vax) has been administered 08/06 Done according to patient influenza virus vaccine, unspecified for mulation Vital Signs Date Name Value Unit Range Description blood pressure, diastolic, second observation 73 m m[Hg] BP mane blood pressure, diastolic, repeated by physician 73 BP mane blood pressure, diastolic 81 mm[Hg] BP mane blood pressure, systolic, second observation 156 mm [Hg] BP sys blood pressure, systolic, repeated by physician 156 BP sys blood pressure, systolic 169 mm[Hg] BP sys height E&M 70 [in_us] Bdy height pulse rate E&M 81 /min Heart rate temperature E&M 98.8 [degF] Body temp erature weight E&M 227.50 [lb_av] Weight Measure d blood pressure, diastolic, second observation 82 m m[Hg] BP mane blood pressure, diastolic, repeated by physician 82 BP maen blood pressure, diastolic 82 mm[Hg] BP mane blood pressure, systolic, second observation 177 mm [Hg] BP sys blood pressure, systolic, repeated by physician 168 BP sys blood pressure, systolic 168 mm[Hg] BP sys height E&M 70 [in_us] Bdy height pulse rate E&M 74 /min Heart rate temperature E&M 99.3 [degF] Body temp erature weight E&M 227 [lb_av] Weight Measure d blood pressure, diastolic, repeated by physician 70 BP mane blood pressure, diastolic 70 mm[Hg] BP mane blood pressure, systolic, repeated by physician 140 BP sys blood pressure, systolic 140 mm[Hg] BP sys height E&M 70 [in_us] Bdy height pulse rate E&M 73 /min Heart rate temperature E&M 98.2 [degF] Body temp erature weight E&M 224.31 [lb_av] Weight Measure d Diagnostic Results Date Name Value Unit Range Description Lab Report: Basic Metabolic Panel - Chem istry sodium, serum 138 mmol/L 696-302 8921/11/07 potassium, serum 4.5 mmol/L 3.5-5.2 chloride, serum 100 mmol/L 98-107 carbon dioxide, venous blood 30.1 mmol/L 21.0-32 .0 blood glucose 120 mg/dL 65-95 calcium, serum 11.0 mg/dL 8.5-10.1 urea nitrogen, blood 25 mg/dL 7-18 creatinine, serum 0.95 mg/dL 0.60-1.30 Estimated Glomerular Filtration Rate (calc) 84 (?) mL/min/1.73m2 = OR > 60 mL/min Lab Report: CBC W/DIFF, Comp. Metabolic Panel - Chemistry sodium, serum 140 mmol/L 866-877 7207/11/01 carbon dioxide, venous blood 28.6 mmol/L 21.0-32 .0 potassium, serum 5.0 mmol/L 3.5-5.2 chloride, serum 103 mmol/L 98-107 blood glucose 151 mg/dL 65-95 urea nitrogen, blood 25 mg/dL 7-18 creatinine, serum 0.97 mg/dL 0.60-1.30 Estimated Glomerular Filtration Rate (calc) 82 (?) mL/min/1.73m2 = OR > 60 mL/min alanine aminotransferase (SGPT), serum 24 U/L 12-78 aspartate aminotransferase (SGOT), serum 31 U/L 15-37 calcium, serum 11.3 mg/dL 8.5-10.1 bilirubin, serum, total 0.70 mg/dL 0.00-1.00 Lab Report: CBC W/DIFF, Comp. Metabolic Panel - Hematology leukocyte count, blood 8.5 10^3/MM^3 10*3/mm3 4.6-10.2 neutrophils as percent of blood leukocytes 77.0 % 42.2-75.2 monocytes as percent of blood leukocytes 6.2 % 1.7-9.3 lymphocytes as percent of blood leukocytes 13.4 % 20.5-51.1 erythrocyte (RBC) count 5.24 10^6/MM^3 10*6/mm3 4.50-6.5 0 hemoglobin, blood 13.8 g/dL 14.0-18.0 hematocrit, blood 42.8 % 40.0-54.0 mean corpuscular volume, RBC 82 fL 80-97 mean corpuscular hemoglobin, RBC 26.4 pg 27. 0-31.2 mean corpuscular hemoglobin concentration, RBC 32.3 G/DL % 31.8-35.4 red blood cell distribution width 13.7 % 11 .6-14.8 platelet count 326 10^3/MM^3 10*3/mm3 142-424 Lab Report: CBC W/DIFF, Comp. Metabolic Panel - Lab Alkaline phosphatase 49 50-136 Lab Report: CBC, MICROALB/CREAT W/RATIO - Hematology leukocyte count, blood 6.7 10^3/MM^3 10*3/mm3 4.6-10.2 erythrocyte (RBC) count 5.26 10^6/MM^3 10*6/mm3 4.50-6.5 0 hemoglobin, blood 14.0 g/dL 14.0-18.0 hematocrit, blood 44.5 % 40.0-54.0 mean corpuscular volume, RBC 85 fL 80-97 mean corpuscular hemoglobin, RBC 26.6 pg 27. 0-31.2 mean corpuscular hemoglobin concentration, RBC 31.4 G/DL % 31.8-35.4 red blood cell distribution width 13.9 % 11 .6-14.8 platelet count 256 10^3/MM^3 10*3/mm3 142-424 Lab Report: CBC, MICROALB/CREAT W/RATIO - Lab microalbumin, urine 80 mg/L 0- Lab Report: CBC, MICROALB/CREAT W/RATIO - Urinalysis microalbumin/total urine volume 30 - 300 mg/g Abnormal mg/g mg/L 0- Office Visit: Med Review - Basic LDL target level 100 mg/dL Office Visit: Med Review - Chemistry HDL cholesterol, serum, target level 40 mg/dL cholesterol, target level 200 mg/dL triglyceride, target level 150 mg/dL Encounters Code Encounter Date Provider Facility CPT-82125 [id number] Vst-Est Level IV 16:21:22 CDT Bru ce Arnol [facility] CPT-21644 Level 3 Est. Patient 15:18:36 CDT Becky anderson [facility] CPT-73827 [id number] Vst-Est Level IV 10:06:35 CDT Bru ce Arnol [facility] CPT-48617 [id number] Vst-Est Level IV 10:52:00 ANIMAL BIOLOGIST Bru ce W [facility] CPT-97201 Level 3 Est. Patient 18:25:53 CDT Mitch luis [facility] CPT-27370 Level 3 Est. Patient 19:43:34 CDT Mitch luis [facility] CPT-36847 Level 4 Est. Patient 09:30:18 CDT Mitch luis [facility] CPT-69383 Level 3 Est. Patient 15:10:14 CDT Joe kamara [facility] CPT-47068 Level 3 Est. Patient 15:03:46 CDT Joe kamara [facility] CPT-15334 Level 3 Est. Patient 14:21:06 CDT Mitch luis [facility] CPT-45867 Level 3 Est. Patient 14:52:06 CDT Joe kamara APRN [facility]-38440 Level 3 Est. Patient 09:34:30 ANIMAL BIOLOGIST Mitch Ambrose L janelle [facility]-19926 Level 3 Est. Patient 09:37:15 CDT Mitch W L janelle [facility]-80948 Level 3 Est. Patient 17:01:00 ANIMAL BIOLOGIST Mitch W L janelle [facility] CPT-59520 Level 3 Est. Patient 13:53:19 ANIMAL BIOLOGIST Mitch W L janelle [facility] CPT-74743 Level 3 Est. Patient 19:19:37 ANIMAL BIOLOGIST Mitch W L janelle [facility] CPT-83877 Level 3 Est. Patient 13:25:53 ANIMAL BIOLOGIST Tavo toure MD [facility]-65090 Level 3 Est. Patient 18:17:28 CDT Mitch W L janelle [facility] CPT-08497 Level 3 Est. Patient 15:22:57 CDT Mitch W L janelle [facility]-64967 Level 3 Est. Patient 18:21:50 CDT Mitch W L janelle [facility] CPT-13001 Level 3 Est. Patient 18:20:38 CDT Mitch W L janelle [facility]-77665 Level 3 Est. Patient 15:37:55 CDT Mitch W L janelle [facility] CPT-73691 Level 2 Est. Patient 15:54:44 CDT Carmine benton MD [facility]-05150 Level 3 Est. Patient 21:46:01 ANIMAL BIOLOGIST Mitch W L janelle [facility] CPT-96777 Level 3 Est. Patient 22:15:50 CDT Mitch W L ee [facility] CPT-80601 Level 3 Est. Patient 10:48:15 CDT Mitch luis [facility] CPT-41282 Level 3 Est. Patient 23:20:57 CDT Tavo toure MD [facility] CPT-41232 Level 3 Est. Patient 16:26:13 CDT Mitch luis [facility] Procedures Code Procedure Name Date Entry Date Standard Desc ription CPT-67053 Venipuncture Draw Fee 14:46:55 ANIMAL BIOLOGIST CPT-39233 Venipuncture Draw Fee 08:26:21 CDT CPT-38755 Venous Duplex Left Leg XRAY USE ONLY 10:43:10 CDT CPT-99786 Venipuncture Draw Fee 17:04:55 CDT CPT-52712 Venipuncture Draw Fee 17:20:50 CDT CPT-73282 Venipuncture Draw Fee 18:00:48 CDT CPT-02812 Venipuncture Draw Fee 14:56:20 CDT CPT-JTINJ Asp/Joint Injection 18:47:02 CDT CPT-51644 Venipuncture Draw Fee 09:26:17 CDT CPT-77732 PT/INR - LAB USE ONLY 13:32:49 ANIMAL BIOLOGIST CPT-98740 Venipuncture Draw Fee 13:32:49 ANIMAL BIOLOGIST CPT-06938 PT/INR - LAB USE ONLY 10:34:49 ANIMAL BIOLOGIST CPT-73799 Venipuncture Draw Fee 10:34:48 ANIMAL BIOLOGIST CPT-30895 PT/INR - LAB USE ONLY 09:22:03 ANIMAL BIOLOGIST CPT-58623 Venipuncture Draw Fee 09:22:02 ANIMAL BIOLOGIST CPT-07852 Hemoccult IFOBT - LAB USE ONLY 10:27:22 CDT CPT-31093 Venipuncture Draw Fee 08:27:08 CDT CPT-64522 Liver Profile - LAB USE ONLY 08:27:07 CDT 2 CPT-45094 Microalbumin - LAB USE ONLY 08:27:07 CDT 20 25/05/09 CPT-66079 PT/INR - LAB USE ONLY 08:27:07 CDT CPT-57362 HGBA1C - LAB USE ONLY 08:27:07 CDT CPT-88302 CBC - LAB USE ONLY 08:27:07 CDT CPT-77463 Venipuncture Draw Fee 11:09:14 CDT CPT-83235 Venipuncture Draw Fee 08:32:21 ANIMAL BIOLOGIST CPT-10318 Venipuncture Draw Fee 09:38:56 ANIMAL BIOLOGIST CPT-66259 No Charge Offi Visit 21:36:07 CDT 1 CPT-39349 Venipuncture Draw Fee 10:13:28 ANIMAL BIOLOGIST CPT-76860 Venipuncture Draw Fee 08:31:11 CDT CPT-02514 Aspir/Inject Med Joint 18:17:28 CDT CPT-45839 Venipuncture Draw Fee 10:13:30 CDT CPT-67493 Venipuncture Draw Fee 08:31:43 ANIMAL BIOLOGIST CPT-JTINJ Joint Injection 18:34:50 CDT CPT-26970 Knee 3V 12:25:09 CDT CPT-77850 Venipuncture Draw Fee 12:15:57 CDT CPT-060 Medical Surveillance Exam 21:31:43 CDT 2011 CPT-89605 Venipuncture Draw Fee 08:32:05 ANIMAL BIOLOGIST CPT-OV Office Visit 18:19:06 CDT
--- OUTSIDE RECORDS SUMMARY | 2020-01-18 11:49 | XMS REPORT | Clinical Summary ---
Author Author Admin, Mitch Leon Organization [facility] Address Unknown Phone Unavailable Allergies, Adverse Reactions, [...] Coronary atherosclerosis of unspecified type of vessel, [place] or graft EDEMA 782.3 Resolved Mitch Urbina [...] by mouth twice a day 2017 FAMOTIDINE 16435541912 No Longer Active Mitch Urbina DO Active COLCRYS 0.6 MG ORAL TABLET 1 tab qid prn gout C OLCHICINE 16141979187 No Longer Active Mitch Urbina DO Active GLIMEPIRIDE 2 MG ORAL TABLET 1 po BID GLIMEPIRID E 20658130466 Active Renee Oconnor ACCOUNT INFORMATION CLERK Active KEFLEX 500 MG ORAL CAPSULE 1 po qid CEPHALEXI N 64073005505 No Longer Active Mitch Urbina DO Active LOSARTAN POTASSIUM 100 MG ORAL TABLET 1 pill by mouth daily, for blood pressure LOSARTAN POTASSIUM 61339057625 Active Ana Wallace Active AMLODIPINE BESYLATE 5 MG ORAL TABLET 1 tablet by mouth daily 201 01/20/04 AMLODIPINE BESYLATE 21250876284 No Longer Active Joe fulton APRN Active MITIGARE 0.6 MG ORAL CAPSULE 2 capsules at onset of go ut pain, then take one capsule at 1 hour if symptoms persist. COLCHICINE 59 588124649 Active Mitch Urbina DO Active COUMADIN 1 MG ORAL TABLET 2 tabs orally daily with the 5mg tab to equal 7mg daily WARFARIN SODIUM 78185335919 Active Ana Wallace Active INVOKANA 100 MG ORAL TABLET 1 tablet orally daily CANAGLIFLOZIN 02720639739 Active Mitch Urbina DO Active MINOXIDIL 2.5 MG ORAL TABLET 1 tablet daily for high blood press ure MINOXIDIL 39685948652 Active Mitch Urbina DO Active MECLIZINE HCL 25 MG ORAL TABLET 1 po tid 3 days, then 1/2 ta b tid 3 days MECLIZINE HCL 47177120063 No Longer Active Corey SEGURA Active ALLOPURINOL 300 MG ORAL TABLET Take 1 tablet by mouth daily 2012 ALLOPURINOL 95876973920 No Longer Active Corey SEGURA Active CLONIDINE HCL 0.1 MG ORAL TABLET 1 po bid 7 days, then 1/2 t ab po bid 7 days CLONIDINE HCL 49599076141 No Longer Active Corey SEGURA Active COUMADIN 5 MG ORAL TABLET 1 tab PO daily WARFAR IN SODIUM 50491517046 Active Mitch Urbina DO Active COUMADIN 4 MG ORAL TABLET 1 tablet daily WARFAR IN SODIUM 91364710193 No Longer Active Corey SEGURA Active POLYTRIM 71594-2.1 UNIT/ML-% OPHTHALMIC SOLUTION 1 rui p in affected eye every 3 hours while awake x 7 days POLYMYXIN B-TRIMETHOP RIM 89722009927 No Longer Active Corey SEGURA Active LOSARTAN POTASSIUM-HCTZ 100-12.5 MG ORAL TABLET 1 by m outh daily for high blood pressure LOSARTAN POTASSIUM-HCTZ 50179589441 No Longer A ctive Mitch Urbina DO Active LISINOPRIL-HYDROCHLOROTHIAZIDE 20-12.5 MG ORAL TABLET 1 tab by m outh daily LISINOPRIL-HYDROCHLOROTHIAZIDE 37647681982 No Longer Active Mitch Urbina DO Active LISINOPRIL 20 MG ORAL TABLET 1 tab po at HS LIS INOPRIL 84833338488 No Longer Active Mitch Urbina DO Active COUMADIN 5 MG ORAL TABLET 1 by mouth every other day 2 WARFARIN SODIUM 68548221607 No Longer Active Mitch Urbina DO Active COUMADIN 6 MG ORAL TABLET 1 by mouth every other day 2 WARFARIN SODIUM 20495780485 No Longer Active Mitch Urbina DO Active SIMVASTATIN 40 MG ORAL TABLET 1 tab daily at bedtime SIMVASTATIN 62620527133 Active Mitch Urbina DO Active SIMVASTATIN 20 MG ORAL TABLET 1 tab daily at bedtime 2 SIMVASTATIN 39797057645 No Longer Active Mitch Urbina DO Active LOVENOX 100 MG/ML SUBCUTANEOUS SOLUTION One injection twice a da y ENOXAPARIN SODIUM 04011319825 No Longer Active Carmine Yusuf MD Active JANUVIA 50 MG ORAL TABLET Take one by mouth daily SITAGLIPTIN PHOSPHATE 15766865054 Active Mitch W Carlitos DO Active JANUVIA 100 MG ORAL TABLET 1/2 by mouth every day 2011 SITAGLIPTIN PHOSPHATE 29740963410 No Longer Active Bijal Segal RN Acti ve METFORMIN HCL 500 MG ORAL TABLET 2 by mouth twice daily METFORMIN HCL 24688868972 Active Mitch Arnol Urbina DO Active COLCRYS 0.6 MG ORAL TABLET 1 po q 6 hours prn gout pain COLCHICINE 91249630686 No Longer Active Camila Reese Active LISINOPRIL 5 MG ORAL TABLET 1 by mouth every day 11/17 LISINOPRIL 96308132472 No Longer Active Nguyen Perez Active KLOR-CON 20 MEQ ORAL PACKET Take one by mouth daily 09/10/08 POTASSIUM CHLORIDE 56472254726 No Longer Active Nguyen Perez Active FUROSEMIDE 40 MG ORAL TABLET 1 by mouth daily F UROSEMIDE 33568767482 No Longer Active Nguyen Perez Active PROVIGIL 200 MG ORAL TABLET 1/2 tab po q day MODA FINIL 72981018777 Active Renee Elvin BURNETTN Active PROVIGIL 100 MG ORAL TABLET Take one by mouth daily 08/20/04 MODAFINIL 75383394549 No Longer Active Mitch Urbina DO Active BACTRIM DS 800-160 MG ORAL TABLET 1 tab by mouth twice daily 201 10/19/09 TRIMETHOPRIM-SULFAMETHOXAZOLE 90448455391 No Longer Active C alberto Hays MD Active ADULT ASPIRIN LOW STRENGTH 81 MG ORAL TABLET DISINTEGR ATING 1 by mouth every daily ASPIRIN 04577710947 Active Mitch Urbina DO Ac tive METOPROLOL TARTRATE 50 MG ORAL TABLET 1 by mouth twice daily METOPROLOL TARTRATE 03978747626 Active Mitch Urbina DO Active BACTRIM DS 800-160 MG ORAL TABLET 1 tab by mouth twice daily 201 10/19/09 BACTRIM DS 800-160 MG ORAL TABLET 834310 TRIMETHOPRIM-SULFAMETHOXAZOLE Inactive PROVIGIL 100 MG ORAL TABLET Take one by mouth daily 08/20/04 PROVIGIL 100 MG ORAL TABLET 459363 MODAFINIL Inactive FUROSEMIDE 40 MG ORAL TABLET 1 by mouth daily FUROSEMIDE 40 MG ORAL TABLET 742023 FUROSEMIDE Inactive KLOR-CON 20 MEQ ORAL PACKET Take one by mouth daily 09/10/08 KLOR- CON 20 MEQ ORAL PACKET 4650219 POTASSIUM CHLORIDE Inactive LISINOPRIL 5 MG ORAL TABLET 1 by mouth every day 11/17 LISINOPRIL 5 MG ORAL TABLET 640150 LISINOPRIL Inactive COLCRYS 0.6 MG ORAL TABLET 1 po q 6 hours prn gout pain COLCRYS 0.6 MG ORAL TABLET 090601 COLCHICINE Inactive JANUVIA 100 MG ORAL TABLET 1/2 by mouth every day 2011 JANUVIA 100 MG ORAL TABLET SITAGLIPTIN PHOSPHATE Inactive SIMVASTATIN 20 MG ORAL TABLET 1 tab daily at bedtime 2 SIMVASTATIN 20 MG ORAL TABLET 253383 SIMVASTATIN Inactive COUMADIN 6 MG ORAL TABLET 1 by mouth every other day COUMADIN 6 MG ORAL TABLET 508632 WARFARIN SODIUM Inactive COUMADIN 5 MG ORAL TABLET 1 by mouth every other day COUMADIN 5 MG ORAL TABLET 357804 WARFARIN SODIUM Inactive LISINOPRIL 20 MG ORAL TABLET 1 tab po at HS LISINOPRIL 20 MG ORAL TABLET 272383 LISINOPRIL Inactive LISINOPRIL-HYDROCHLOROTHIAZIDE 20-12.5 MG ORAL TABLET 1 tab by m outh daily LISINOPRIL-HYDROCHLOROTHIAZIDE 20-12.5 MG ORAL TABLET 665164 LISINOPRIL-HYDROCHLOROTHIAZIDE Inactive POLYTRIM 13590-3.1 UNIT/ML-% OPHTHALMIC SOLUTION 1 rui p in affected eye every 3 hours while awake x 7 days POLYTRIM 1000 0-0.1 UNIT/ML-% OPHTHALMIC SOLUTION 855739 POLYMYXIN B-TRIMETHOPRIM Inactive COUMADIN 4 MG ORAL TABLET 1 tablet daily COUMADIN 4 MG ORAL TABLET 533033 WARFARIN SODIUM Inactive CLONIDINE HCL 0.1 MG ORAL TABLET 1 po bid 7 days, then 1/2 t ab po bid 7 days CLONIDINE HCL 0.1 MG ORAL TABLET 964928 CLONIDIN E HCL Inactive ALLOPURINOL 300 MG ORAL TABLET Take 1 tablet by mouth daily 2012 ALLOPURINOL 300 MG ORAL TABLET 363651 ALLOPURINOL I nactive MECLIZINE HCL 25 MG ORAL TABLET 1 po tid 3 days, then 1/2 ta b tid 3 days MECLIZINE HCL 25 MG ORAL TABLET 237899 MECLIZINE HCL Inactive AMLODIPINE BESYLATE 5 MG ORAL TABLET 1 tablet by mouth daily 201 01/20/04 AMLODIPINE BESYLATE 5 MG ORAL TABLET 523492 AMLODIPINE BESYLATE Inactive KEFLEX 500 MG ORAL CAPSULE 1 po qid K EFLEX 500 MG ORAL CAPSULE 503834 CEPHALEXIN Inactive COLCRYS 0.6 MG ORAL TABLET 1 tab qid prn gout COLCRYS 0.6 MG ORAL TABLET 747829 COLCHICINE Inactive FAMOTIDINE 20 MG ORAL TABLET by mouth twice a day 2017 FAMOTIDINE 20 MG ORAL TABLET 227513 FAMOTIDINE Inactive LOVENOX 100 MG/ML SUBCUTANEOUS SOLUTION One injection twice a da y LOVENOX 100 MG/ML SUBCUTANEOUS SOLUTION 576494 ENOXAPAR IN SODIUM Inactive Vital Signs Date [...] - Chem istry sodium, serum 139 mmol/L 317-205 9938/07/17 potassium, serum 4.2 mmol/L 3.5-5.2 chloride, serum 102 mmol/L 98-107 carbon dioxide, venous blood 28.9 mmol/L 21.0-32 .0 blood glucose 211 mg/dL 65-110 calcium, serum 10.6 mg/dL 8.5-10.1 urea nitrogen, blood 29 mg/dL 7-18 creatinine, serum 1.24 mg/dL 0.60-1.30 sodium, serum 141 mmol/L 692-270 7630/08/07 potassium, serum 4.5 mmol/L 3.5-5.2 chloride, serum [...] ... - Chemistry sodium, serum 144 mmol/L 995-302 5549/06/12 carbon dioxide, venous blood 26.6 mmol/L 21.0-32 [...] HGBA1C - Chemistry cholesterol, serum 136 mg/dL 432-776 9583/12/06 triglyceride, serum, fasting 247 mg/dL 30-200 HDL cholesterol, serum 41 mg/dL 32-60 LDL cholesterol, serum 46 mg/dL 0-130 aspartate aminotransferase (SGOT), serum 22 U/L 15-37 alanine aminotransferase (SGPT), serum 30 U/L 12-78 bilirubin, serum, total 0.80 mg/dL 0.00-1.00 hemoglobin A1C, blood, as % of total hemoglobin 6.4 % 4.3-6.0 Encounters Code Encounter Date Provider Facility CPT-42012 Level 3 Est. Patient 18:25:53 CDT Mitch luis [facility] CPT-71666 Level 3 Est. Patient 19:43:34 CDT Mitch luis [facility] CPT-77138 Level 4 Est. Patient 09:30:18 CDT Mitch luis [facility] CPT-22813 Level 3 Est. Patient 15:10:14 CDT Joe kamara [facility] CPT-46390 Level 3 Est. Patient 15:03:46 CDT Joe kamara [facility] CPT-07567 Level 3 Est. Patient 14:21:06 CDT Mitch luis [facility] CPT-34098 Level 3 Est. Patient 14:52:06 [facility] Est[facility] Patient 09:34:30 DRAG SEINER Mitch luis [facility]-81982 Level 3 Est. Patient 09:37:15 CDT Mitch Ambrose L janelle [facility]-53533 Level 3 Est. Patient 17:01:00 DRAG SEINER Mitch Ambrose L janelle [facility] CPT-86409 Level 3 Est. Patient 13:53:19 DRAG SEINER Mitch W L janelle [facility] CPT-86951 Level 3 Est. Patient 19:19:37 DRAG SEINER Mitch W L janelle [facility] CPT-18395 Level 3 Est. Patient 13:25:53 DRAG SEINER Tavo toure MD [facility]-49907 Level 3 Est. Patient 18:17:28 CDT Mitch luis [facility] CPT-35082 Level 3 Est. Patient 15:22:57 CDT Mitch W L janelle [facility]-89953 Level 3 Est. Patient 18:21:50 CDT Mitch Arnol L janelle [facility] CPT-94470 Level 3 Est. Patient 18:20:38 CDT Mitch Arnol L janelle [facility]-10775 Level 3 Est. Patient 15:37:55 CDT Mitch W L janelle [facility] CPT-89208 Level 2 Est. Patient 15:54:44 CDT Carmine benton MD [facility]-02318 Level 3 Est. Patient 21:46:01 DRAG SEINER Mitch W L janelle [facility]-59018 Level 3 Est. Patient 22:15:50 CDT Mitch W L janelle [facility] CPT-23190 Level 3 Est. Patient 10:48:15 CDT Mitch luis [facility] CPT-00960 Level 3 Est. Patient 23:20:57 CDT Tavo toure MD [facility] CPT-96427 Level 3 Est. Patient 16:26:13 CDT Mitch luis [facility] Procedures Code Procedure Name Date Entry Date Standard Desc ription CPT-JTINJ Asp/Joint Injection 18:47:02 CDT CPT-90704 Venipuncture Draw Fee 09:26:17 CDT CPT-03222 PT/INR - LAB USE ONLY 13:32:49 DRAG SEINER CPT-32685 Venipuncture Draw Fee 13:32:49 DRAG SEINER CPT-44787 PT/INR - LAB USE ONLY 10:34:49 DRAG SEINER CPT-07864 Venipuncture Draw Fee 10:34:48 DRAG SEINER CPT-54213 PT/INR - LAB USE ONLY 09:22:03 DRAG SEINER CPT-14929 Venipuncture Draw Fee 09:22:02 DRAG SEINER CPT-91556 Hemoccult IFOBT - LAB USE ONLY 10:27:22 CDT CPT-23594 Venipuncture Draw Fee 08:27:08 CDT CPT-96378 Liver Profile - LAB USE ONLY 08:27:07 CDT 2 CPT-04459 Microalbumin - LAB USE ONLY 08:27:07 CDT 20 25/05/09 CPT-48068 PT/INR - LAB USE ONLY 08:27:07 CDT CPT-44607 HGBA1C - LAB USE ONLY 08:27:07 CDT CPT-94938 CBC - LAB USE ONLY 08:27:07 CDT CPT-77928 Venipuncture Draw Fee 11:09:14 CDT CPT-60029 Venipuncture Draw Fee 08:32:21 DRAG SEINER CPT-72370 Venipuncture Draw Fee 09:38:56 DRAG SEINER CPT-96811 No Charge Offi Visit 21:36:07 CDT 1 CPT-02739 Venipuncture Draw Fee 10:13:28 DRAG SEINER CPT-11940 Venipuncture Draw Fee 08:31:11 CDT CPT-39725 Aspir/Inject Med Joint 18:17:28 CDT CPT-00182 Venipuncture Draw Fee 10:13:30 CDT CPT-61805 Venipuncture Draw Fee 08:31:43 DRAG SEINER CPT-JTINJ Joint Injection 18:34:50 CDT CPT-85403 Knee 3V 12:25:09 CDT CPT-34916 Venipuncture Draw Fee 12:15:57 CDT CPT-060 Medical Surveillance Exam 21:31:43 CDT 2011 CPT-18176 Venipuncture Draw Fee 08:32:05 DRAG SEINER CPT-OV Office Visit 18:19:06 CDT
--- OUTSIDE RECORDS SUMMARY | 2020-01-18 11:49 | XMS REPORT | Clinical Summary ---
Author Author Admin, Mitch Leon Organization [facility] Address Unknown Phone Unavailable Allergies, Adverse Reactions, [...] Coronary atherosclerosis of unspecified type of vessel, mechoopda or graft EDEMA 782.3 Resolved Mitch Urbina [...] ORAL TABLET 1 po BID GLIMEPIRID E 70418176567 Active Ana Wallace Active KEFLEX 500 MG ORAL CAPSULE 1 po qid CEPHALEXI N 23249691654 No Longer Active Mitch Urbina DO Active LOSARTAN POTASSIUM 100 MG ORAL TABLET 1 pill by mouth daily, for blood pressure LOSARTAN POTASSIUM 93270648074 Active Ana Wallace Active AMLODIPINE BESYLATE 5 MG ORAL TABLET 1 tablet by mouth daily 201 01/20/04 AMLODIPINE BESYLATE 16332291156 No Longer Active Devonjustincarlitos fulton ANNIE Active MITIGARE 0.6 MG ORAL CAPSULE 2 capsules at onset of go ut pain, then take one capsule at 1 hour if symptoms persist. COLCHICINE 59 912649291 Active Mitch Urbina DO Active COUMADIN 1 MG ORAL TABLET 2 tabs orally daily with the 5mg tab to equal 7mg daily WARFARIN SODIUM 11261764455 Active Ana Wallace Active COLCRYS 0.6 MG ORAL TABLET 1 tab qid prn gout C OLCHICINE 45834544697 Active Norma Cazares Active INVOKANA 100 MG ORAL TABLET 1 tablet orally daily CANAGLIFLOZIN 61911769141 Active Mitch Urbina DO Active MINOXIDIL 2.5 MG ORAL TABLET 1 tablet daily for high blood press ure MINOXIDIL 70627364533 Active Mitch Urbina DO Active MECLIZINE HCL 25 MG ORAL TABLET 1 po tid 3 days, then 1/2 ta b tid 3 days MECLIZINE HCL 36038928695 No Longer Active Corey SEGURA Active ALLOPURINOL 300 MG ORAL TABLET Take 1 tablet by mouth daily 2012 ALLOPURINOL 62500770274 No Longer Active Corey SEGURA Active CLONIDINE HCL 0.1 MG ORAL TABLET 1 po bid 7 days, then 1/2 t ab po bid 7 days CLONIDINE HCL 58650866999 No Longer Active Corey SEGURA Active COUMADIN 5 MG ORAL TABLET 1 tab PO daily WARFAR IN SODIUM 07840020666 Active Mitch Urbina DO Active COUMADIN 4 MG ORAL TABLET 1 tablet daily WARFAR IN SODIUM 33185530584 No Longer Active Corey SEGURA Active POLYTRIM 70873-8.1 UNIT/ML-% OPHTHALMIC SOLUTION 1 rui p in affected eye every 3 hours while awake x 7 days POLYMYXIN B-TRIMETHOP RIM 52414513508 No Longer Active Corey SEGURA Active LOSARTAN POTASSIUM-HCTZ 100-12.5 MG ORAL TABLET 1 by m outh daily for high blood pressure LOSARTAN POTASSIUM-HCTZ 50710735517 No Longer A ctive Mitch Urbina DO Active LISINOPRIL-HYDROCHLOROTHIAZIDE 20-12.5 MG ORAL TABLET 1 tab by m outh daily LISINOPRIL-HYDROCHLOROTHIAZIDE 47369319065 No Longer Active Mitch Urbina DO Active LISINOPRIL 20 MG ORAL TABLET 1 tab po at HS LIS INOPRIL 63350443497 No Longer Active Mitch Urbina DO Active COUMADIN 5 MG ORAL TABLET 1 by mouth every other day 2 WARFARIN SODIUM 44123464475 No Longer Active Mitch Urbina DO Active COUMADIN 6 MG ORAL TABLET 1 by mouth every other day 2 WARFARIN SODIUM 40992836153 No Longer Active Mitch Urbina DO Active SIMVASTATIN 40 MG ORAL TABLET 1 tab daily at bedtime SIMVASTATIN 30561081631 Active Mitch Urbina DO Active SIMVASTATIN 20 MG ORAL TABLET 1 tab daily at bedtime 2 SIMVASTATIN 64919088573 No Longer Active Mitch Urbina DO Active LOVENOX 100 MG/ML SUBCUTANEOUS SOLUTION One injection twice a da y ENOXAPARIN SODIUM 06968601054 No Longer Active Carmine Yusuf MD Active JANUVIA 50 MG ORAL TABLET Take one by mouth daily SITAGLIPTIN PHOSPHATE 78011561445 Active Mitch Urbina DO Active JANUVIA 100 MG ORAL TABLET 1/2 by mouth every day 2011 SITAGLIPTIN PHOSPHATE 97130566070 No Longer Active Bijal Segal RN Acti ve METFORMIN HCL 500 MG ORAL TABLET 2 by mouth twice daily METFORMIN HCL 12120757278 Active Mitch Urbina DO Active COLCRYS 0.6 MG ORAL TABLET 1 po q 6 hours prn gout pain COLCHICINE 38843615571 No Longer Active Camila Reese Active LISINOPRIL 5 MG ORAL TABLET 1 by mouth every day 11/17 LISINOPRIL 62189072171 No Longer Active Nguyen Coekman Active KLOR-CON 20 MEQ ORAL PACKET Take one by mouth daily 09/10/08 POTASSIUM CHLORIDE 00957506055 No Longer Active Nguyen Coekman Active FUROSEMIDE 40 MG ORAL TABLET 1 by mouth daily F UROSEMIDE 62816694737 No Longer Active Nguyen Coekman Active PROVIGIL 200 MG ORAL TABLET 1/2 tab po q day MODA FINIL 10167320873 Active Mitch Urbina DO Active PROVIGIL 100 MG ORAL TABLET Take one by mouth daily 08/20/04 MODAFINIL 77372586681 No Longer Active Mitch Urbina DO Active BACTRIM DS 800-160 MG ORAL TABLET 1 tab by mouth twice daily 201 10/19/09 TRIMETHOPRIM-SULFAMETHOXAZOLE 03307001074 No Longer Active Elian Hays MD Active FAMOTIDINE 20 MG ORAL TABLET by mouth twice a day FAMOTIDINE 45925703306 Active Mitch Urbina DO Active ADULT ASPIRIN LOW STRENGTH 81 MG ORAL TABLET DISINTEGR ATING 1 by mouth every daily ASPIRIN 93044161083 Active Mitch Urbina DO Ac tive METOPROLOL TARTRATE 50 MG ORAL TABLET 1 by mouth twice daily METOPROLOL TARTRATE 25484085313 Active Mitch Urbina DO Active BACTRIM DS 800-160 MG ORAL TABLET 1 tab by mouth twice daily 201 10/19/09 BACTRIM DS 800-160 MG ORAL TABLET 564741 TRIMETHOPRIM-SULFAMETHOXAZOLE Inactive PROVIGIL 100 MG ORAL TABLET Take one by mouth daily 08/20/04 PROVIGIL 100 MG ORAL TABLET 432028 MODAFINIL Inactive FUROSEMIDE 40 MG ORAL TABLET 1 by mouth daily FUROSEMIDE 40 MG ORAL TABLET 011938 FUROSEMIDE Inactive KLOR-CON 20 MEQ ORAL PACKET Take one by mouth daily 09/10/08 KLOR- CON 20 MEQ ORAL PACKET 6673655 POTASSIUM CHLORIDE Inactive LISINOPRIL 5 MG ORAL TABLET 1 by mouth every day 11/17 LISINOPRIL 5 MG ORAL TABLET 328610 LISINOPRIL Inactive COLCRYS 0.6 MG ORAL TABLET 1 po q 6 hours prn gout pain COLCRYS 0.6 MG ORAL TABLET 553443 COLCHICINE Inactive JANUVIA 100 MG ORAL TABLET 1/2 by mouth every day 2011 JANUVIA 100 MG ORAL TABLET SITAGLIPTIN PHOSPHATE Inactive SIMVASTATIN 20 MG ORAL TABLET 1 tab daily at bedtime 2 SIMVASTATIN 20 MG ORAL TABLET 444327 SIMVASTATIN Inactive COUMADIN 6 MG ORAL TABLET 1 by mouth every other day 2 COUMADIN 6 MG ORAL TABLET 992667 WARFARIN SODIUM Inactive COUMADIN 5 MG ORAL TABLET 1 by mouth every other day 2 COUMADIN 5 MG ORAL TABLET 844644 WARFARIN SODIUM Inactive LISINOPRIL 20 MG ORAL TABLET 1 tab po at HS LISINOPRIL 20 MG ORAL TABLET 479861 LISINOPRIL Inactive LISINOPRIL-HYDROCHLOROTHIAZIDE 20-12.5 MG ORAL TABLET 1 tab by m outh daily LISINOPRIL-HYDROCHLOROTHIAZIDE 20-12.5 MG ORAL TABLET 556398 LISINOPRIL-HYDROCHLOROTHIAZIDE Inactive POLYTRIM 96495-7.1 UNIT/ML-% OPHTHALMIC SOLUTION 1 rui p in affected eye every 3 hours while awake x 7 days POLYTRIM 1000 0-0.1 UNIT/ML-% OPHTHALMIC SOLUTION 372678 POLYMYXIN B-TRIMETHOPRIM Inactive COUMADIN 4 MG ORAL TABLET 1 tablet daily COUMADIN 4 MG ORAL TABLET 787626 WARFARIN SODIUM Inactive CLONIDINE HCL 0.1 MG ORAL TABLET 1 po bid 7 days, then 1/2 t ab po bid 7 days CLONIDINE HCL 0.1 MG ORAL TABLET 549759 CLONIDIN E HCL Inactive ALLOPURINOL 300 MG ORAL TABLET Take 1 tablet by mouth daily 2012 ALLOPURINOL 300 MG ORAL TABLET 739770 ALLOPURINOL I nactive MECLIZINE HCL 25 MG ORAL TABLET 1 po tid 3 days, then 1/2 ta b tid 3 days MECLIZINE HCL 25 MG ORAL TABLET 646904 MECLIZINE HCL Inactive AMLODIPINE BESYLATE 5 MG ORAL TABLET 1 tablet by mouth daily 201 01/20/04 AMLODIPINE BESYLATE 5 MG ORAL TABLET 943497 AMLODIPINE BESYLATE Inactive KEFLEX 500 MG ORAL CAPSULE 1 po qid K EFLEX 500 MG ORAL CAPSULE 392582 CEPHALEXIN Inactive LOVENOX 100 MG/ML SUBCUTANEOUS SOLUTION One injection twice a da y LOVENOX 100 MG/ML SUBCUTANEOUS SOLUTION 748156 ENOXAPAR IN SODIUM Inactive Vital Signs Date [...] - Chem istry sodium, serum 139 mmol/L 730-085 2711/07/17 potassium, serum 4.2 mmol/L 3.5-5.2 chloride, serum 102 mmol/L 98-107 carbon dioxide, venous blood 28.9 mmol/L 21.0-32 .0 blood glucose 211 mg/dL 65-110 calcium, serum 10.6 mg/dL 8.5-10.1 urea nitrogen, blood 29 mg/dL 7-18 creatinine, serum 1.24 mg/dL 0.60-1.30 sodium, serum 141 mmol/L 809-644 5305/08/07 potassium, serum 4.5 mmol/L 3.5-5.2 chloride, serum [...] ... - Chemistry sodium, serum 144 mmol/L 054-026 0232/06/12 carbon dioxide, venous blood 26.6 mmol/L 21.0-32 [...] HGBA1C - Chemistry cholesterol, serum 136 mg/dL 706-715 4516/12/06 triglyceride, serum, fasting 247 mg/dL 30-200 HDL cholesterol, serum 41 mg/dL 32-60 LDL cholesterol, serum 46 mg/dL 0-130 aspartate aminotransferase (SGOT), serum 22 U/L 15-37 alanine aminotransferase (SGPT), serum 30 U/L 12-78 bilirubin, serum, total 0.80 mg/dL 0.00-1.00 hemoglobin A1C, blood, as % of total hemoglobin 6.4 % 4.3-6.0 Lab Report: Prothrombin Time - Coagulati on prothrombin time (patient) 21.3 SECS s 11.1-13.4 international normalized ratio (INR) 2.7 1.0-3.5 Encounters Code Encounter Date Provider Facility CPT-18980 Level 3 Est. Patient 18:25:53 CDT Mitch luis [facility] [address] CPT-09529 Level 3 Est. Patient 19:43:34 CDT Mitch luis [facility] [address] CPT-50768 Level 4 Est. Patient 09:30:18 CDT Mitch luis [facility] [address] CPT-08552 Level 3 Est. Patient 15:10:14 CDT Joe kamara [facility] CPT-27647 Level 3 Est. Patient 15:03:46 CDT Joe kamara [facility] CPT-29198 Level 3 Est. Patient 14:21:06 CDT Mitch luis [facility] [address] CPT-54086 Level 3 Est. Patient 14:52:06 CDT Joe kamara [facility] CPT-30282 Level 3 Est. Patient 09:34:30 PRESS SET UP PERSON Mitch Castellano [facility] CPT-35603 Level 3 Est. Patient 09:37:15 CDT Mitch luis [facility] [address] CPT-44852 Level 3 Est. Patient 17:01:00 PRESS SET UP PERSON Mitch luis [facility] CPT-03340 Level 3 Est. Patient 13:53:19 PRESS SET UP PERSON Mitch luis [facility] CPT-83911 Level 3 Est. Patient 19:19:37 PRESS SET UP PERSON Mitch luis [facility] CPT-06256 Level 3 Est. Patient 13:25:53 PRESS SET UP PERSON [facility] CPT-93262 Level 3 Est. Patient 18:17:28 CDT Mitch Ambrose L janelle [facility] CPT-79000 Level 3 Est. Patient 15:22:57 CDT Mitch W L janelle [facility] [address] CPT-55619 Level 3 Est. Patient 18:21:50 CDT Mitch W L janelle [facility] [address] CPT-53096 Level 3 Est. Patient 18:20:38 CDT Mitch luis [facility] [address] CPT-36209 Level 3 Est. Patient 15:37:55 CDT Mitch luis [facility] CPT-29776 Level 2 Est. Patient 15:54:44 CDT Carmine benton MD [facility] CPT-57991 Level 3 Est. Patient 21:46:01 PRESS SET UP PERSON Mitch luis [facility] CPT-70671 Level 3 Est. Patient 22:15:50 CDT Mitch luis [facility] CPT-35259 Level 3 Est. Patient 10:48:15 CDT Mitch luis [facility] CPT-15031 Level 3 Est. Patient 23:20:57 CDT [facility] CPT-27311 Level 3 Est. Patient 16:26:13 CDT Mitch Ambrose L janelle [facility] Procedures Code Procedure Name Date Entry Date Standard Desc ription CPT-55675 Venipuncture Draw Fee 09:26:17 CDT CPT-30576 PT/INR - LAB USE ONLY 13:32:49 PRESS SET UP PERSON CPT-37915 Venipuncture Draw Fee 13:32:49 PRESS SET UP PERSON CPT-03795 PT/INR - LAB USE ONLY 10:34:49 PRESS SET UP PERSON CPT-27558 Venipuncture Draw Fee 10:34:48 PRESS SET UP PERSON CPT-37350 PT/INR - LAB USE ONLY 09:22:03 PRESS SET UP PERSON CPT-71467 Venipuncture Draw Fee 09:22:02 PRESS SET UP PERSON CPT-23264 Hemoccult IFOBT - LAB USE ONLY 10:27:22 CDT CPT-28355 Venipuncture Draw Fee 08:27:08 CDT CPT-21482 Liver Profile - LAB USE ONLY 08:27:07 CDT 2 CPT-82337 Microalbumin - LAB USE ONLY 08:27:07 CDT 20 25/05/09 CPT-00157 PT/INR - LAB USE ONLY 08:27:07 CDT CPT-83618 HGBA1C - LAB USE ONLY 08:27:07 CDT CPT-25031 CBC - LAB USE ONLY 08:27:07 CDT CPT-74765 Venipuncture Draw Fee 11:09:14 CDT CPT-18755 Venipuncture Draw Fee 08:32:21 PRESS SET UP PERSON CPT-08103 Venipuncture Draw Fee 09:38:56 PRESS SET UP PERSON CPT-02838 No Charge Offi Visit 21:36:07 CDT 1 CPT-03077 Venipuncture Draw Fee 10:13:28 PRESS SET UP PERSON CPT-70441 Venipuncture Draw Fee 08:31:11 CDT CPT-13506 Aspir/Inject Med Joint 18:17:28 CDT CPT-94191 Venipuncture Draw Fee 10:13:30 CDT CPT-76717 Venipuncture Draw Fee 08:31:43 PRESS SET UP PERSON CPT-JTINJ Joint Injection 18:34:50 CDT CPT-84370 Knee 3V 12:25:09 CDT CPT-62685 Venipuncture Draw Fee 12:15:57 CDT CPT-060 Medical Surveillance Exam 21:31:43 CDT 2011 CPT-14406 Venipuncture Draw Fee 08:32:05 PRESS SET UP PERSON CPT-OV Office Visit 18:19:06 CDT
--- OUTSIDE RECORDS SUMMARY | 2020-01-18 11:49 | XMS REPORT | Clinical Summary ---
Author Author Admin, Mitch Leon Organization [facility] Address Unknown Phone Unavailable Allergies, Adverse Reactions, [...] Coronary atherosclerosis of unspecified type of vessel, [place] or graft EDEMA 782.3 Resolved Mitch Urbina [...] by mouth daily 201 05/19/02 AMLODIPINE BESYLATE 13728539937 No Longer Active Maria Briones Active WARFARIN TABS 1MG TAKE 2 TABLETS (2 MG) DAILY WITH THE 5 MG TABLET TO EQUAL 7 MG DAILY WARFARIN SODIUM 73658580368 Active Maria Briones Active WARFARIN SODIUM 5 MG TABS TAKE 1 TABLET DAILY W ARFARIN SODIUM 90811671167 Active Allison PERERA Active KEFLEX 500 MG ORAL CAPSULE 1 capsule by mouth three times da rocky x10 days CEPHALEXIN 01844118079 No Longer Active Maria landaverde RN Active METOPROLOL TARTRATE TABS 50MG TAKE 1 TABLET TWICE A DAY ([facility]) METOPROLOL TARTRATE 24887830865 Active Maria Briones Active DOXAZOSIN MESYLATE 2 MG ORAL TABLET 1 po q day for pr ostate and blood pressure DOXAZOSIN MESYLATE 61426509609 Active Mitch Urbina DO Active LOSARTAN TABS 100MG TAKE 1 TABLET DAILY FOR BLOOD PRESSURE LOSARTAN POTASSIUM 13335100531 Active Maria Rivas RN Active FLUTICASONE PROPIONATE 50 MCG/ACT NASAL SUSPENSION 1 s pray each nostril twice daily for 1 week, then once daily FLUTICASONE HI OPIONATE 37847027516 Active Becky Sell DEHYDROGENATION CONVERTER HELPER Active PREDNISONE 20 MG ORAL TABLET 2 tabs daily for 3 days 1 tab d aily for 3 days PREDNISONE 54794400247 No Longer Active Becky Sell DEHYDROGENATION CONVERTER HELPER Active MINOXIDIL 2.5 MG ORAL TABLET 1 tablet twice daily for high b lood pressure MINOXIDIL 62690296754 Active Mitch Urbina DO Ac tive METFORMIN HCL ER 500 MG ORAL TABLET EXTENDED RELEASE 2 4 HOUR 2 tablets by mouth twice daily METFORMIN HCL 62627185338 Active Mitch Urbina DO Active GLIMEPIRIDE 4 MG ORAL TABLET 1 tablet by mouth twice daily f or diabetes GLIMEPIRIDE 87742105705 Active Mitch Urbina DO Active GLIMEPIRIDE 2 MG ORAL TABLET 1 po BID GLIMEPI RIDE 46322392646 No Longer Active Mitch Urbina DO Active PROVIGIL 200 MG ORAL TABLET 1/2 tab po q day MODA FINIL 32958862297 Active Maria Rivas RN Active FAMOTIDINE 20 MG ORAL TABLET by mouth twice a day 2017 FAMOTIDINE 09686966137 No Longer Active Mitch Urbina DO Active COLCRYS 0.6 MG ORAL TABLET 1 tab qid prn gout C OLCHICINE 83392999472 No Longer Active Mitch Urbina DO Active KEFLEX 500 MG ORAL CAPSULE 1 po qid CEPHALEXI N 36210338844 No Longer Active Mitch Urbina DO Active AMLODIPINE BESYLATE 5 MG ORAL TABLET 1 tablet by mouth daily 201 01/20/04 AMLODIPINE BESYLATE 63408402685 No Longer Active Joe fulton APRN Active MITIGARE 0.6 MG ORAL CAPSULE 2 capsules at onset of go ut pain, then take one capsule at 1 hour if symptoms persist. COLCHICINE 59 351995997 Active Mitch Urbina DO Active INVOKANA 100 MG ORAL TABLET 1 tablet orally daily CANAGLIFLOZIN 89926445019 Active Mitch Urbina DO Active MECLIZINE HCL 25 MG ORAL TABLET 1 po tid 3 days, then 1/2 ta b tid 3 days MECLIZINE HCL 43603434745 No Longer Active Corey SEGURA Active ALLOPURINOL 300 MG ORAL TABLET Take 1 tablet by mouth daily 2012 ALLOPURINOL 31482073687 No Longer Active Corey SEGURA Active CLONIDINE HCL 0.1 MG ORAL TABLET 1 po bid 7 days, then 1/2 t ab po bid 7 days CLONIDINE HCL 45663639467 No Longer Active Corey SEGURA Active COUMADIN 4 MG ORAL TABLET 1 tablet daily WARFAR IN SODIUM 69528888364 No Longer Active Corey SEGURA Active POLYTRIM 28733-6.1 UNIT/ML-% OPHTHALMIC SOLUTION 1 rui p in affected eye every 3 hours while awake x 7 days POLYMYXIN B-TRIMETHOP RIM 95848619062 No Longer Active Corey SEGURA Active LOSARTAN POTASSIUM-HCTZ 100-12.5 MG ORAL TABLET 1 by m outh daily for high blood pressure LOSARTAN POTASSIUM-HCTZ 20533924424 No Longer A ctive Mitch Urbina DO Active LISINOPRIL-HYDROCHLOROTHIAZIDE 20-12.5 MG ORAL TABLET 1 tab by m outh daily LISINOPRIL-HYDROCHLOROTHIAZIDE 46831602114 No Longer Active Mitch Urbina DO Active LISINOPRIL 20 MG ORAL TABLET 1 tab po at HS LIS INOPRIL 04395844777 No Longer Active Mitch Urbina DO Active COUMADIN 5 MG ORAL TABLET 1 by mouth every other day 2 WARFARIN SODIUM 02834520206 No Longer Active Mitch Urbina DO Active COUMADIN 6 MG ORAL TABLET 1 by mouth every other day 2 WARFARIN SODIUM 04606419704 No Longer Active Mitch Urbina DO Active SIMVASTATIN 40 MG ORAL TABLET 1 tab daily at bedtime SIMVASTATIN 82996969279 Active Maria Rivas RN Active SIMVASTATIN 20 MG ORAL TABLET 1 tab daily at bedtime 2 SIMVASTATIN 61112255681 No Longer Active Mitch Urbina DO Active LOVENOX 100 MG/ML SUBCUTANEOUS SOLUTION One injection twice a da y ENOXAPARIN SODIUM 74080703366 No Longer Active Carmine Yusuf MD Active JANUVIA 50 MG ORAL TABLET Take one by mouth daily SITAGLIPTIN PHOSPHATE 95717303873 Active Renee Oconnoreder DE LA ROSA Active JANUVIA 100 MG ORAL TABLET 1/2 by mouth every day 2011 SITAGLIPTIN PHOSPHATE 50429423583 No Longer Active Bijal Segal RN Acti ve METFORMIN HCL 500 MG ORAL TABLET 2 by mouth twice daily METFORMIN HCL 75414776708 No Longer Active Renee Oconnor LPN Active COLCRYS 0.6 MG ORAL TABLET 1 po q 6 hours prn gout pain COLCHICINE 21250647320 No Longer Active Camila Reese Active LISINOPRIL 5 MG ORAL TABLET 1 by mouth every day 11/17 LISINOPRIL 84247939591 No Longer Active Nguyen Perez Active KLOR-CON 20 MEQ ORAL PACKET Take one by mouth daily 20 09/10/08 POTASSIUM CHLORIDE 59302501471 No Longer Active Nguyen Perez Active FUROSEMIDE 40 MG ORAL TABLET 1 by mouth daily F UROSEMIDE 78954475918 No Longer Active Nguyen Perez Active PROVIGIL 100 MG ORAL TABLET Take one by mouth daily 20 08/20/04 MODAFINIL 95287352659 No Longer Active Mitch Urbina DO Active BACTRIM DS 800-160 MG ORAL TABLET 1 tab by mouth twice daily 201 10/19/09 TRIMETHOPRIM-SULFAMETHOXAZOLE 84134111913 No Longer Active C alberto Hays MD Active ADULT ASPIRIN LOW STRENGTH 81 MG ORAL TABLET DISINTEGR ATING 1 by mouth every daily ASPIRIN 85884436795 Active Mitch Urbina DO Ac tive BACTRIM DS 800-160 MG ORAL TABLET 1 tab by mouth twice daily 201 10/19/09 BACTRIM DS 800-160 MG ORAL TABLET 165328 TRIMETHOPRIM-SULFAMETHOXAZOLE Inactive PROVIGIL 100 MG ORAL TABLET Take one by mouth daily 08/20/04 PROVIGIL 100 MG ORAL TABLET 710002 MODAFINIL Inactive FUROSEMIDE 40 MG ORAL TABLET 1 by mouth daily FUROSEMIDE 40 MG ORAL TABLET 436627 FUROSEMIDE Inactive KLOR-CON 20 MEQ ORAL PACKET Take one by mouth daily 09/10/08 KLOR- CON 20 MEQ ORAL PACKET 3977356 POTASSIUM CHLORIDE Inactive LISINOPRIL 5 MG ORAL TABLET 1 by mouth every day 11/17 LISINOPRIL 5 MG ORAL TABLET 654895 LISINOPRIL Inactive COLCRYS 0.6 MG ORAL TABLET 1 po q 6 hours prn gout pain COLCRYS 0.6 MG ORAL TABLET 269727 COLCHICINE Inactive JANUVIA 100 MG ORAL TABLET 1/2 by mouth every day 2011 JANUVIA 100 MG ORAL TABLET SITAGLIPTIN PHOSPHATE Inactive SIMVASTATIN 20 MG ORAL TABLET 1 tab daily at bedtime 2 SIMVASTATIN 20 MG ORAL TABLET 601213 SIMVASTATIN Inactive COUMADIN 6 MG ORAL TABLET 1 by mouth every other day COUMADIN 6 MG ORAL TABLET 973404 WARFARIN SODIUM Inactive COUMADIN 5 MG ORAL TABLET 1 by mouth every other day COUMADIN 5 MG ORAL TABLET 020392 WARFARIN SODIUM Inactive LISINOPRIL 20 MG ORAL TABLET 1 tab po at HS LISINOPRIL 20 MG ORAL TABLET 437660 LISINOPRIL Inactive LISINOPRIL-HYDROCHLOROTHIAZIDE 20-12.5 MG ORAL TABLET 1 tab by m outh daily LISINOPRIL-HYDROCHLOROTHIAZIDE 20-12.5 MG ORAL TABLET 542849 LISINOPRIL-HYDROCHLOROTHIAZIDE Inactive POLYTRIM 28034-9.1 UNIT/ML-% OPHTHALMIC SOLUTION 1 rui p in affected eye every 3 hours while awake x 7 days POLYTRIM 1000 0-0.1 UNIT/ML-% OPHTHALMIC SOLUTION 725270 POLYMYXIN B-TRIMETHOPRIM Inactive COUMADIN 4 MG ORAL TABLET 1 tablet daily COUMADIN 4 MG ORAL TABLET 167138 WARFARIN SODIUM Inactive CLONIDINE HCL 0.1 MG ORAL TABLET 1 po bid 7 days, then 1/2 t ab po bid 7 days CLONIDINE HCL 0.1 MG ORAL TABLET 124442 CLONIDIN E HCL Inactive ALLOPURINOL 300 MG ORAL TABLET Take 1 tablet by mouth daily 2012 ALLOPURINOL 300 MG ORAL TABLET 173546 ALLOPURINOL I nactive MECLIZINE HCL 25 MG ORAL TABLET 1 po tid 3 days, then 1/2 ta b tid 3 days MECLIZINE HCL 25 MG ORAL TABLET 009369 MECLIZINE HCL Inactive AMLODIPINE BESYLATE 5 MG ORAL TABLET 1 tablet by mouth daily 201 01/20/04 AMLODIPINE BESYLATE 5 MG ORAL TABLET 888252 AMLODIPINE BESYLATE Inactive KEFLEX 500 MG ORAL CAPSULE 1 po qid K EFLEX 500 MG ORAL CAPSULE 187853 CEPHALEXIN Inactive COLCRYS 0.6 MG ORAL TABLET 1 tab qid prn gout COLCRYS 0.6 MG ORAL TABLET 245719 COLCHICINE Inactive FAMOTIDINE 20 MG ORAL TABLET by mouth twice a day 2017 FAMOTIDINE 20 MG ORAL TABLET 018881 FAMOTIDINE Inactive GLIMEPIRIDE 2 MG ORAL TABLET 1 po BID GLIMEPIRIDE 2 MG ORAL TABLET 552608 GLIMEPIRIDE Inactive AMLODIPINE BESYLATE 5 MG ORAL TABLET 1 tablet by mouth daily 201 05/19/02 AMLODIPINE BESYLATE 5 MG ORAL TABLET 263667 AMLODIPINE BESYLATE Inactive LOVENOX 100 MG/ML SUBCUTANEOUS SOLUTION One injection twice a da y LOVENOX 100 MG/ML SUBCUTANEOUS SOLUTION 458723 ENOXAPAR IN SODIUM Inactive PREDNISONE 20 MG ORAL TABLET 2 tabs daily for 3 days 1 tab d aily for 3 days PREDNISONE 20 MG ORAL TABLET 729788 PREDNISONE Inactive KEFLEX 500 MG ORAL CAPSULE 1 capsule by mouth three times da rocky x10 days KEFLEX 500 MG ORAL CAPSULE 208024 CEPHALEXIN I nactive Advance Directives Directive Description Start Date PERMISSION [...] pressure, diastolic, repeated by physician 82 BP mane blood pressure, diastolic 82 mm[Hg] BP mane [...] - Chem istry sodium, serum 138 mmol/L 623-151 8354/11/07 potassium, serum 4.5 mmol/L 3.5-5.2 chloride, serum [...] Panel - Chemistry sodium, serum 140 mmol/L 638-174 0019/11/01 carbon dioxide, venous blood 28.6 mmol/L 21.0-32 [...] W/RATIO - Lab microalbumin, urine 80 mg/L 0-19 Lab Report: CBC, MICROALB/CREAT W/RATIO - Urinalysis microalbumin/total urine volume 30 - 300 mg/g Abnormal mg/g mg/L 0- Office Visit: Med Review - Basic LDL target level 100 mg/dL Office Visit: Med Review - Chemistry HDL cholesterol, serum, target level 40 mg/dL cholesterol, target level 200 mg/dL triglyceride, target level 150 mg/dL Encounters Code Encounter Date Provider Facility CPT-13298 [id number] Vst-Est Level IV 16:21:22 CDT Stephy Ambrose [facility] CPT-13289 Level 3 Est. Patient 15:18:36 CDT Becky anderson [facility] CPT-62923 [id number] Vst-Est Level IV 10:06:35 CDT Stephy Ambrose [facility]-76989 [id number] Vst-Est Level IV 10:52:00 VACUUM FILTER OPERATOR Stephy Ambrose [facility] CPT-75070 Level 3 Est. Patient 18:25:53 CDT Mitch luis [facility] CPT-23096 Level 3 Est. Patient 19:43:34 CDT Mitch luis [facility] CPT-33761 Level 4 Est. Patient 09:30:18 CDT Mitch luis [facility] CPT-72137 Level 3 Est. Patient 15:10:14 CDT Joe kamara [facility]-30182 Level 3 Est. Patient 15:03:46 CDT Joe kamara [facility] CPT-50051 Level 3 Est. Patient 14:21:06 CDT Mitch Arnol L ee [facility]-43641 Level 3 Est. Patient 14:52:06 CDT Joe kamara [facility]-12410 Level 3 Est. Patient 09:34:30 VACUUM FILTER OPERATOR Mitch W L ee [facility]-10078 Level 3 Est. Patient 09:37:15 CDT Mitch W L ee [facility]-41612 Level 3 Est. Patient 17:01:00 VACUUM FILTER OPERATOR Mitch W L ee [facility] CPT-09678 Level 3 Est. Patient 13:53:19 VACUUM FILTER OPERATOR Mitch W L ee [facility] CPT-76724 Level 3 Est. Patient 19:19:37 VACUUM FILTER OPERATOR Mitch W L janelle [facility] CPT-74603 Level 3 Est. Patient 13:25:53 VACUUM FILTER OPERATOR Tavo toure MD [facility]-86347 Level 3 Est. Patient 18:17:28 CDT Mitch W L ee [facility] CPT-00859 Level 3 Est. Patient 15:22:57 CDT Mitch W L ee [facility]-41657 Level 3 Est. Patient 18:21:50 CDT Mitch W L ee [facility]-01310 Level 3 Est. Patient 18:20:38 CDT Mitch W L ee [facility] CPT-80250 Level 3 Est. Patient 15:37:55 CDT Mitch W L ee [facility] CPT-27167 Level 2 Est. Patient 15:54:44 CDT Carmine benton MD [facility]-84489 Level 3 Est. Patient 21:46:01 VACUUM FILTER OPERATOR Mitch W L ee [facility] CPT-01143 Level 3 Est. Patient 22:15:50 CDT Mitch luis [facility] CPT-78581 Level 3 Est. Patient 10:48:15 CDT Mitch luis [facility] CPT-53722 Level 3 Est. Patient 23:20:57 CDT Tavo toure MD [facility] CPT-62318 Level 3 Est. Patient 16:26:13 CDT Mitch luis [facility] Procedures Code Procedure Name Date Entry Date Standard Desc ription CPT-60989 Venipuncture Draw Fee 14:46:55 VACUUM FILTER OPERATOR CPT-82820 Venipuncture Draw Fee 08:26:21 CDT CPT-38398 Venous Duplex Left Leg XRAY USE ONLY 10:43:10 CDT CPT-37733 Venipuncture Draw Fee 17:04:55 CDT CPT-14539 Venipuncture Draw Fee 17:20:50 CDT CPT-89759 Venipuncture Draw Fee 18:00:48 CDT CPT-11351 Venipuncture Draw Fee 14:56:20 CDT CPT-JTINJ Asp/Joint Injection 18:47:02 CDT CPT-04467 Venipuncture Draw Fee 09:26:17 CDT CPT-50328 PT/INR - LAB USE ONLY 13:32:49 VACUUM FILTER OPERATOR CPT-36471 Venipuncture Draw Fee 13:32:49 VACUUM FILTER OPERATOR CPT-80374 PT/INR - LAB USE ONLY 10:34:49 VACUUM FILTER OPERATOR CPT-61287 Venipuncture Draw Fee 10:34:48 VACUUM FILTER OPERATOR CPT-95749 PT/INR - LAB USE ONLY 09:22:03 VACUUM FILTER OPERATOR CPT-82909 Venipuncture Draw Fee 09:22:02 VACUUM FILTER OPERATOR CPT-97280 Hemoccult IFOBT - LAB USE ONLY 10:27:22 CDT CPT-28437 Venipuncture Draw Fee 08:27:08 CDT CPT-81107 Liver Profile - LAB USE ONLY 08:27:07 CDT 2 CPT-62243 Microalbumin - LAB USE ONLY 08:27:07 CDT 20 25/05/09 CPT-21188 PT/INR - LAB USE ONLY 08:27:07 CDT CPT-29932 HGBA1C - LAB USE ONLY 08:27:07 CDT CPT-52283 CBC - LAB USE ONLY 08:27:07 CDT CPT-72378 Venipuncture Draw Fee 11:09:14 CDT CPT-15361 Venipuncture Draw Fee 08:32:21 VACUUM FILTER OPERATOR CPT-39250 Venipuncture Draw Fee 09:38:56 VACUUM FILTER OPERATOR CPT-21006 No Charge Offi Visit 21:36:07 CDT 1 CPT-60259 Venipuncture Draw Fee 10:13:28 VACUUM FILTER OPERATOR CPT-92970 Venipuncture Draw Fee 08:31:11 CDT CPT-64399 Aspir/Inject Med Joint 18:17:28 CDT CPT-72548 Venipuncture Draw Fee 10:13:30 CDT CPT-97640 Venipuncture Draw Fee 08:31:43 VACUUM FILTER OPERATOR CPT-JTINJ Joint Injection 18:34:50 CDT CPT-36019 Knee 3V 12:25:09 CDT CPT-71325 Venipuncture Draw Fee 12:15:57 CDT CPT-060 Medical Surveillance Exam 21:31:43 CDT 2011 CPT-46824 Venipuncture Draw Fee 08:32:05 VACUUM FILTER OPERATOR CPT-OV Office Visit 18:19:06 CDT
--- OUTSIDE RECORDS SUMMARY | 2020-01-18 11:50 | XMS REPORT | Clinical Summary ---
Author Author Admin, Mitch Leon Organization [facility] Address Unknown Phone Unavailable Allergies, Adverse Reactions, Alerts Allergy Name Reaction Description Start Date Severity Status Pr ovider PENICILLIN HIVES Critical Active Mitch Urbina DO Conditions or Problems Problem Name Problem Code Onset Date Status Entry Date Provider Comment Standard Description Annotate HYPERTENSION 401.9 Active Mitch Ubrina DO U nspecified essential hypertension CELLULITIS, GROIN, [...] Coronary atherosclerosis of unspecified type of vessel, ewiiaapaayp or graft EDEMA 782.3 Resolved Mitch Urbina [...] Mitch Urbina DO DIZZINESS ICD-780.4 Inactive Mitch Urbnia DO 10/23 GOUT, RIGHT WRIST ICD-274.9 Inactive [...] 1 tablet by mouth daily AMLODIPINE BESYLATE 76965769247 No Longer Active Joe Williamson APRN Active MITIGARE 0.6 MG ORAL CAPS 2 capsules at onset of gout pain, then take one capsule at 1 hour if symptoms persist. COLCHICINE 59 274901399 Active Mitch Urbina DO Active COUMADIN 1 MG TAB 2 tabs orally daily with the 5mg tab to equal 7mg daily WARFARIN SODIUM 76304860155 Active Mitch Urbina DO Active COLCRYS 0.6 MG TABS 1 tab qid prn gout COLCHICINE 17102817573 Active Norma Sage Active INVOKANA 100 MG ORAL TABS 1 tablet orally daily CANAGLIFLOZIN 36652956204 Active Mitch Urbina DO Active MINOXIDIL 2.5 MG TABS 1 tablet daily for high blood pressure 10/23 MINOXIDIL 89174425468 Active Mitch Urbina DO Active MECLIZINE HCL 25 MG TAB 1 po tid 3 days, then 1/2 tab tid 3 days MECLIZINE HCL 87333109405 No Longer Active Corey SEGURA Active ALLOPURINOL 300 MG TABS Take 1 tablet by mouth daily 2 ALLOPURINOL 70859460081 No Longer Active Corey SEGURA Activ e CLONIDINE HCL 0.1 MG TABS 1 po bid 7 days, then 1/2 tab po b id 7 days CLONIDINE HCL 75130128628 No Longer Active Corey SEGURA Active COUMADIN 5 MG TABS 1 tab PO daily WARFARIN SODIUM 82936440059 Active Mitch Urbina DO Active COUMADIN 4 MG TABS 1 tablet daily WARFARIN SODI UM 61540544564 No Longer Active Corey SEGURA Active POLYTRIM 76944-8.1 UNIT/ML-% SOLN 1 drop in affected e ye every 3 hours while awake x 7 days POLYMYXIN B-TRIMETHOPRIM 09969682805 N o Longer Active Corey SEGURA Active LOSARTAN POTASSIUM-HCTZ 100-12.5 MG TABS 1 by mouth da rocky for high blood pressure LOSARTAN POTASSIUM-HCTZ 97938342844 Active Stephy Urbina DO Active LISINOPRIL-HYDROCHLOROTHIAZIDE 20-12.5 MG TABS 1 tab by mouth da rocky LISINOPRIL-HYDROCHLOROTHIAZIDE 65708627935 No Longer Active Mitch luis DO Active LISINOPRIL 20 MG TABS 1 tab po at HS LISINOPRIL 26011609646 No Longer Active Mitch Urbina DO Active COUMADIN 5 MG TABS 1 by mouth every other day WARFARIN SODIUM 91616916572 No Longer Active Mitch Urbina DO Active COUMADIN 6 MG TABS 1 by mouth every other day WARFARIN SODIUM 10858323867 No Longer Active Mitch Urbina DO Active SIMVASTATIN 40 MG TABS 1 tab daily at bedtime S IMVASTATIN 70651351437 Active Mitch Urbina DO Active SIMVASTATIN 20 MG TABS 1 tab daily at bedtime S IMVASTATIN 02772557977 No Longer Active Mitch Urbina DO Active LOVENOX 100 MG/ML SC SOLN One injection twice a day 09/15/15 ENOXAPARIN SODIUM 75168903933 No Longer Active Carmine Navarrete ctive JANUVIA 50 MG TABS Take one by mouth daily DIEGO GLIPTIN PHOSPHATE 13138850256 Active Mitch Urbina DO Active JANUVIA 100 MG TABS 1/2 by mouth every day DIEGO GLIPTIN PHOSPHATE 62416784907 No Longer Active Bijal Segal RN Active METFORMIN HCL 500 MG TABS 2 by mouth twice daily METFORMIN HCL 97728939467 Active Mitch Urbina DO Active GLIMEPIRIDE 4 MG TABS 1 tab po bid GLIMEPIRIDE 642980 08521 Active Mitch Urbina DO Active COLCRYS 0.6 MG TABS 1 po q 6 hours prn gout pain 03/02 COLCHICINE 22929178663 No Longer Active Camila Reese Active LISINOPRIL 5 MG TABS 1 by mouth every day LISIN OPRIL 65929467576 No Longer Active Nguyen Perez Active KLOR-CON 20 MEQ PACK Take one by mouth daily 8 POTASSIUM CHLORIDE 08244385307 No Longer Active Nguyen Perez Active FUROSEMIDE 40 MG TABS 1 by mouth daily FUROSEMI DE 86669050090 No Longer Active Nguyen Perez Active PROVIGIL 200 MG TABS 1/2 tab po q day MODAFINIL 04221 840653 Active Mitch Urbina DO Active PROVIGIL 100 MG TABS Take one by mouth daily MO DAFINIL 81248666440 No Longer Active Mitch Urbina DO Active BACTRIM DS 800-160 MG TAB 1 tab by mouth twice daily 2 TRIMETHOPRIM-SULFAMETHOXAZOLE 11466663627 No Longer Active Renan Hays MD Active FAMOTIDINE 20 MG TABS by mouth twice a day FAMOTI DINE 08422979523 Active Mitch Urbina DO Active ADULT ASPIRIN LOW STRENGTH 81 MG TBDP 1 by mouth every daily ASPIRIN 79539603246 Active Mitch Urbina DO Active METOPROLOL TARTRATE 50 MG TABS 1 by mouth twice daily METOPROLOL TARTRATE 54464676187 Active Mitch Urbina DO Active BACTRIM DS 800-160 MG TAB 1 tab by mouth twice daily 2 BACTRIM DS 800-160 MG TAB 834362 TRIMETHOPRIM-SULFAMETHOXAZOLE Inac tive PROVIGIL 100 MG TABS Take one by mouth daily 4 PROVIGIL 100 MG TABS 387244 MODAFINIL Inactive FUROSEMIDE 40 MG TABS 1 by mouth daily FU ROSEMIDE 40 MG TABS 238983 FUROSEMIDE Inactive KLOR-CON 20 MEQ PACK Take one by mouth daily 8 KLOR-CON 20 MEQ PACK 8361549 POTASSIUM CHLORIDE Inactive LISINOPRIL 5 MG TABS 1 by mouth every day LISINOPRIL 5 MG TABS 909485 LISINOPRIL Inactive COLCRYS 0.6 MG TABS 1 po q 6 hours prn gout pain 03/02 COLCRYS 0.6 MG TABS 937655 COLCHICINE Inactive JANUVIA 100 MG TABS 1/2 by mouth every day JANUVI A 100 MG TABS SITAGLIPTIN PHOSPHATE Inactive SIMVASTATIN 20 MG TABS 1 tab daily at bedtime SIMVASTATIN 20 MG TABS 772505 SIMVASTATIN Inactive COUMADIN 6 MG TABS 1 by mouth every other day COUMADIN 6 MG TABS 313296 WARFARIN SODIUM Inactive COUMADIN 5 MG TABS 1 by mouth every other day COUMADIN 5 MG TABS 252449 WARFARIN SODIUM Inactive LISINOPRIL 20 MG TABS 1 tab po at HS KOKI NOPRIL 20 MG TABS 226000 LISINOPRIL Inactive LISINOPRIL-HYDROCHLOROTHIAZIDE 20-12.5 MG TABS 1 tab by mouth da rocky LISINOPRIL-HYDROCHLOROTHIAZIDE 20-12.5 MG TABS 880624 LISINOPRIL-HYDROCHLOROTHIAZIDE Inactive POLYTRIM 55856-5.1 UNIT/ML-% SOLN 1 drop in affected e ye every 3 hours while awake x 7 days POLYTRIM 94526-9.1 UNIT/ML-% SOLN 90527 7 POLYMYXIN B-TRIMETHOPRIM Inactive COUMADIN 4 MG TABS 1 tablet daily COUMADIN 4 MG TABS 535425 WARFARIN SODIUM Inactive CLONIDINE HCL 0.1 MG TABS 1 po bid 7 days, then 1/2 tab po b id 7 days CLONIDINE HCL 0.1 MG TABS 650996 CLONIDINE HCL I nactive ALLOPURINOL 300 MG TABS Take 1 tablet by mouth daily 2 ALLOPURINOL 300 MG TABS 048135 ALLOPURINOL Inactive MECLIZINE HCL 25 MG TAB 1 po tid 3 days, then 1/2 tab tid 3 days MECLIZINE HCL 25 MG TAB 845573 MECLIZINE HCL Inactive AMLODIPINE BESYLATE 5 MG TABS 1 tablet by mouth daily AMLODIPINE BESYLATE 5 MG TABS 847368 AMLODIPINE BESYLATE Inactive LOVENOX 100 MG/ML SC SOLN One injection twice a day 09/15/15 LOVENOX 100 MG/ML SC SOLN 657580 ENOXAPARIN SODIUM Inactive Vital Signs Date Name [...] ... - Chemistry sodium, serum 144 mmol/L 545-165 9774/06/12 carbon dioxide, venous blood 26.6 mmol/L 21.0-32 [...] CBC - Chemistry cholesterol, serum 136 mg/dL 582-141 7807/08/09 triglyceride, serum, fasting 187 mg/dL 30-200 HDL [...] 1.0-3.5 Encounters Code Encounter Date Provider Facility CPT-59161 Level 4 Est. Patient 09:30:18 CDT Mitch luis [facility] CPT-78349 Level 3 Est. Patient 15:10:14 CDT Joe kamara [facility] CPT-41627 Level 3 Est. Patient 15:03:46 CDT Joe kamara [facility] CPT-57511 Level 3 Est. Patient 14:21:06 CDT Mitch luis [facility] CPT-03563 Level 3 Est. Patient 14:52:06 CDT Joe kamara APRN [facility] CPT-87862 Level 3 Est. Patient 09:34:30 ENVIRONMENTAL FIELD TECHNICIAN Mitch W L ee [facility]-25148 Level 3 Est. Patient 09:37:15 CDT Mitch W L ee [facility] CPT-93579 Level 3 Est. Patient 17:01:00 ENVIRONMENTAL FIELD TECHNICIAN Mitch W L ee [facility] CPT-27748 Level 3 Est. Patient 13:53:19 ENVIRONMENTAL FIELD TECHNICIAN Mitch W L ee [facility] CPT-67729 Level 3 Est. Patient 19:19:37 ENVIRONMENTAL FIELD TECHNICIAN Mitch W L ee [facility]-26993 Level 3 Est. Patient 13:25:53 ENVIRONMENTAL FIELD TECHNICIAN Tavo toure MD [facility] [place]-55969 Level 3 Est. Patient 18:17:28 CDT Mitch W L janelle [facility] CPT-24387 Level 3 Est. Patient 15:22:57 CDT Mitch W L ee [facility]-49322 Level 3 Est. Patient 18:21:50 CDT Mitch W L ee [facility]-95741 Level 3 Est. Patient 18:20:38 CDT Mitch W L ee [facility]-77047 Level 3 Est. Patient 15:37:55 CDT Mitch W L ee [facility] CPT-91436 Level 2 Est. Patient 15:54:44 CDT Carmine benton MD [facility]-57465 Level 3 Est. Patient 21:46:01 ENVIRONMENTAL FIELD TECHNICIAN Mitch W L ee [facility] CPT-08772 Level 3 Est. Patient 22:15:50 CDT Mitch W L ee [facility] CPT-36528 Level 3 Est. Patient 10:48:15 CDT Mitch W L ee [facility] CPT-52432 Level 3 Est. Patient 23:20:57 CDT Tavo tuore MD [facility] CPT-56498 Level 3 Est. Patient 16:26:13 CDT Mitch Castellano ee [facility] Procedures Code Procedure Name Date Entry Date Standard Desc ription CPT-40667 PT/INR - LAB USE ONLY 13:32:49 ENVIRONMENTAL FIELD TECHNICIAN CPT-28189 Venipuncture Draw Fee 13:32:49 ENVIRONMENTAL FIELD TECHNICIAN CPT-64422 PT/INR - LAB USE ONLY 10:34:49 ENVIRONMENTAL FIELD TECHNICIAN CPT-12096 Venipuncture Draw Fee 10:34:48 ENVIRONMENTAL FIELD TECHNICIAN CPT-98016 PT/INR - LAB USE ONLY 09:22:03 ENVIRONMENTAL FIELD TECHNICIAN CPT-47068 Venipuncture Draw Fee 09:22:02 ENVIRONMENTAL FIELD TECHNICIAN CPT-19880 Hemoccult IFOBT - LAB USE ONLY 10:27:22 CDT CPT-03293 Venipuncture Draw Fee 08:27:08 CDT CPT-61187 Liver Profile - LAB USE ONLY 08:27:07 CDT 2 CPT-04277 Microalbumin - LAB USE ONLY 08:27:07 CDT 20 25/05/09 CPT-89438 PT/INR - LAB USE ONLY 08:27:07 CDT CPT-53887 HGBA1C - LAB USE ONLY 08:27:07 CDT CPT-69666 CBC - LAB USE ONLY 08:27:07 CDT CPT-59787 Venipuncture Draw Fee 11:09:14 CDT CPT-25389 Venipuncture Draw Fee 08:32:21 ENVIRONMENTAL FIELD TECHNICIAN CPT-01375 Venipuncture Draw Fee 09:38:56 ENVIRONMENTAL FIELD TECHNICIAN CPT-81264 No Charge Offi Visit 21:36:07 CDT 1 CPT-98049 Venipuncture Draw Fee 10:13:28 ENVIRONMENTAL FIELD TECHNICIAN CPT-60344 Venipuncture Draw Fee 08:31:11 CDT CPT-19821 Aspir/Inject Med Joint 18:17:28 CDT CPT-91708 Venipuncture Draw Fee 10:13:30 CDT CPT-92740 Venipuncture Draw Fee 08:31:43 ENVIRONMENTAL FIELD TECHNICIAN CPT-JTINJ Joint Injection 18:34:50 CDT CPT-83508 Knee 3V 12:25:09 CDT CPT-38410 Venipuncture Draw Fee 12:15:57 CDT CPT-060 Medical Surveillance Exam 21:31:43 CDT 2011 CPT-25473 Venipuncture Draw Fee 08:32:05 ENVIRONMENTAL FIELD TECHNICIAN CPT-OV Office Visit 18:19:06 CDT
--- OUTSIDE RECORDS SUMMARY | 2020-01-18 11:50 | XMS REPORT | Clinical Summary ---
Author Author Admin, Mitch Leon Organization [facility] [employer] Address Unknown Phone Unavailable Allergies, Adverse Reactions, [...] Hypoglycemia, unspecified GOUT, WRIST 274.9 Active Mitch Ubrina DO Gout, unspecified LONG-TERM (CURRENT) USE OF ANTICOAGULANTS V58.61 Resol kylah Mitch Urbina DO Long-term (current) use of anticoagulant s HEALTH MAINTENANCE EXAM V70.0 Active Mitch Meraz DO Routine general medical examination at a health care facility CORONARY HEART DISEASE 414.00 Active Mitch Urbina DO Coronary atherosclerosis of unspecified type of vessel, nikolski or graft EDEMA 782.3 Resolved Mitch Urbina DO Ed antonia DEGENERATIVE JOINT DISEASE, KNEES, 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 3 Active Mitch Urbina DO Osteoarthrosis, unsp ecified whether generalized or localized, involving lower leg DIZZINESS 780.4 Resolved Mitch Urbina DO Dizziness and giddiness CAROTID BRUIT, LEFT 785.9 Active Mitch Urbina DO Other symptoms involving cardiovascular system GOUT, RIGHT WRIST 274.9 Resolved Mitch Arnol Urbina DO Gout, unspecified BRUISE 924.9 Resolved Mitch Urbina DO Co ntusion of unspecified site [...] by other means Narcolepsy 347.00 Active Mitch Arnol Urbina DO 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 of colon 211.3 Active Joe Williamson APRN Benign neoplasm of colon SEROMA ICD-998.13 Inactive Mitch Urbina DO REACTIVE HYPOGLYCEMIA ICD-251.2 Inactive Mitch Arnol Carlitos DO LONG-TERM (CURRENT) USE OF ANTICOAGULANTS ICD-V58.61 Inactive Mitch Urbina DO EDEMA ICD-782.3 Inactive Mitch Urbina DO DIZZINESS ICD-780.4 Inactive Mitch Urbina DO 10/23 GOUT, RIGHT WRIST ICD-274.9 Inactive Mitch Arnol Lenore ponce DO BRUISE ICD-924.9 Inactive Mitch Urbina DO OLECRANON BURSITIS, RIGHT ICD-726.33 Inactive Mitch Ambrose Carlitos UNSPECIFIED ANEMIA ICD-285.9 Inactive Mitch Ambrose Nona luis DO Malaise and fatigue ICD-780.79 Inactive Mitch Ambrose Carlitos VELASQUEZ Cough, chronic ICD-786.2 Inactive Mitch Ambrose Carlitos D O Sebaceous cyst, infected ICD-706.2 Inactive Mitch Ambrose Carlitos Cellulitis ICD-682.9 Inactive Mitch Urbina DO 10/23 CELLULITIS, GROIN, LEFT ICD-682.2 Inactive Zoya ponce Arnol Urbina Medication List Medication Instructions Start Date Stop Date Generic Name NDC Status Provider Patient Instruction AMLODIPINE BESYLATE 5 MG TABS 1 tablet by mouth daily AMLODIPINE BESYLATE 55453062081 No Longer Active Joe Williamson APRN Active MITIGARE 0.6 MG ORAL CAPS 2 capsules at onset of gout pain, then take one capsule at 1 hour if symptoms persist. COLCHICINE 59 007942370 Active Mitch Urbina DO Active COUMADIN 1 MG TAB 2 tabs orally daily with the 5mg tab to equal 7mg daily WARFARIN SODIUM 33434413800 Active Mitch Urbina DO Active COLCRYS 0.6 MG TABS 1 tab qid prn gout COLCHICINE 23171492954 Active Norma Cazares Active INVOKANA 100 MG ORAL TABS 1 tablet orally daily CANAGLIFLOZIN 56118897353 Active Brenda Gaymerman Active MINOXIDIL 2.5 MG TABS 1 tablet daily for high blood pressure 10/23 MINOXIDIL 21068478057 Active Ana Wallace Active MECLIZINE HCL 25 MG TAB 1 po tid 3 days, then 1/2 tab tid 3 days MECLIZINE HCL 58336837313 No Longer Active Corey SEGURA Active ALLOPURINOL 300 MG TABS Take 1 tablet by mouth daily 2 ALLOPURINOL 49594984062 No Longer Active Corey SEGURA Activ e CLONIDINE HCL 0.1 MG TABS 1 po bid 7 days, then 1/2 tab po b id 7 days CLONIDINE HCL 50723214572 No Longer Active Corey SEGURA Active COUMADIN 5 MG TABS 1 tab PO daily WARFARIN SODIUM 63130997498 Active Mitch Urbina DO Active COUMADIN 4 MG TABS 1 tablet daily WARFARIN SODI UM 91267848981 No Longer Active Corey SEGURA Active POLYTRIM 83474-7.1 UNIT/ML-% SOLN 1 drop in affected e ye every 3 hours while awake x 7 days POLYMYXIN B-TRIMETHOPRIM 97475267591 N o Longer Active Corey SEGURA Active LOSARTAN POTASSIUM-HCTZ 100-12.5 MG TABS 1 by mouth da rocky for high blood pressure LOSARTAN POTASSIUM-HCTZ 04342832326 Active Stephy Urbina DO Active LISINOPRIL-HYDROCHLOROTHIAZIDE 20-12.5 MG TABS 1 tab by mouth da rocky LISINOPRIL-HYDROCHLOROTHIAZIDE 34319047480 No Longer Active Mitch luis DO Active LISINOPRIL 20 MG TABS 1 tab po at HS LISINOPRIL 99468724726 No Longer Active Mitch Urbina DO Active COUMADIN 5 MG TABS 1 by mouth every other day WARFARIN SODIUM 23930825186 No Longer Active Mitch Urbina DO Active COUMADIN 6 MG TABS 1 by mouth every other day WARFARIN SODIUM 76047141650 No Longer Active Mitch Urbina DO Active SIMVASTATIN 40 MG TABS 1 tab daily at bedtime S IMVASTATIN 85648968319 Active Mitch Urbina DO Active SIMVASTATIN 20 MG TABS 1 tab daily at bedtime S IMVASTATIN 42981765158 No Longer Active Mitch Urbina DO Active LOVENOX 100 MG/ML SC SOLN One injection twice a day 09/15/15 ENOXAPARIN SODIUM 08102568256 No Longer Active Carmine Navarrete ctive JANUVIA 50 MG TABS Take one by mouth daily DIEGO GLIPTIN PHOSPHATE 08885223955 Active Mitch Urbina DO Active JANUVIA 100 MG TABS 1/2 by mouth every day DIEGO GLIPTIN PHOSPHATE 48648423903 No Longer Active Bijal Segal RN Active METFORMIN HCL 500 MG TABS 2 by mouth twice daily METFORMIN HCL 20901600718 Active Mitch Urbina DO Active GLIMEPIRIDE 4 MG TABS 1 tab po bid GLIMEPIRIDE 631486 61454 Active Mitch Urbina DO Active COLCRYS 0.6 MG TABS 1 po q 6 hours prn gout pain 03/02 COLCHICINE 55601710852 No Longer Active aCmila Reese Active LISINOPRIL 5 MG TABS 1 by mouth every day LISIN OPRIL 29218631410 No Longer Active Nguyen Perez Active KLOR-CON 20 MEQ PACK Take one by mouth daily 8 POTASSIUM CHLORIDE 40211659738 No Longer Active Nguyen Perez Active FUROSEMIDE 40 MG TABS 1 by mouth daily FUROSEMI DE 54993519207 No Longer Active Nguyen Perez Active PROVIGIL 200 MG TABS 1/2 tab po q day MODAFINIL 98340 657578 Active Kathie Juan RPT,RMA Active PROVIGIL 100 MG TABS Take one by mouth daily MO DAFINIL 98702324142 No Longer Active Mitch Urbina DO Active BACTRIM DS 800-160 MG TAB 1 tab by mouth twice daily 2 TRIMETHOPRIM-SULFAMETHOXAZOLE 58950459037 No Longer Active Renan Hays MD Active FAMOTIDINE 20 MG TABS by mouth twice a day FAMOTI DINE 42906894983 Active Mitch Urbina DO Active ADULT ASPIRIN LOW STRENGTH 81 MG TBDP 1 by mouth every daily ASPIRIN 68322255474 Active Mitch Urbina DO Active METOPROLOL TARTRATE 50 MG TABS 1 by mouth twice daily METOPROLOL TARTRATE 59982701183 Active Mitch Urbina DO Active BACTRIM DS 800-160 MG TAB 1 tab by mouth twice daily 2 BACTRIM DS 800-160 MG TAB 717283 TRIMETHOPRIM-SULFAMETHOXAZOLE Inac tive PROVIGIL 100 MG TABS Take one by mouth daily 4 PROVIGIL 100 MG TABS 860167 MODAFINIL Inactive FUROSEMIDE 40 MG TABS 1 by mouth daily FU ROSEMIDE 40 MG TABS 973333 FUROSEMIDE Inactive KLOR-CON 20 MEQ PACK Take one by mouth daily 8 KLOR-CON 20 MEQ PACK 731250 POTASSIUM CHLORIDE Inactive LISINOPRIL 5 MG TABS 1 by mouth every day LISINOPRIL 5 MG TABS 187284 LISINOPRIL Inactive COLCRYS 0.6 MG TABS 1 po q 6 hours prn gout pain 03/02 COLCRYS 0.6 MG TABS 806533 COLCHICINE Inactive JANUVIA 100 MG TABS 1/2 by mouth every day JANUVI A 100 MG TABS SITAGLIPTIN PHOSPHATE Inactive SIMVASTATIN 20 MG TABS 1 tab daily at bedtime SIMVASTATIN 20 MG TABS 322306 SIMVASTATIN Inactive COUMADIN 6 MG TABS 1 by mouth every other day COUMADIN 6 MG TABS 028316 WARFARIN SODIUM Inactive COUMADIN 5 MG TABS 1 by mouth every other day COUMADIN 5 MG TABS 038147 WARFARIN SODIUM Inactive LISINOPRIL 20 MG TABS 1 tab po at HS KOKI NOPRIL 20 MG TABS 512534 LISINOPRIL Inactive LISINOPRIL-HYDROCHLOROTHIAZIDE 20-12.5 MG TABS 1 tab by mouth da rocky LISINOPRIL-HYDROCHLOROTHIAZIDE 20-12.5 MG TABS 164594 LISINOPRIL-HYDROCHLOROTHIAZIDE Inactive POLYTRIM 45469-8.1 UNIT/ML-% SOLN 1 drop in affected e ye every 3 hours while awake x 7 days POLYTRIM 93139-5.1 UNIT/ML-% SOLN 95067 7 POLYMYXIN B-TRIMETHOPRIM Inactive COUMADIN 4 MG TABS 1 tablet daily COUMADIN 4 MG TABS 054458 WARFARIN SODIUM Inactive CLONIDINE HCL 0.1 MG TABS 1 po bid 7 days, then 1/2 tab po b id 7 days CLONIDINE HCL 0.1 MG TABS 801073 CLONIDINE HCL I nactive ALLOPURINOL 300 MG TABS Take 1 tablet by mouth daily 2 ALLOPURINOL 300 MG TABS 183309 ALLOPURINOL Inactive MECLIZINE HCL 25 MG TAB 1 po tid 3 days, then 1/2 tab tid 3 days MECLIZINE HCL 25 MG TAB 761002 MECLIZINE HCL Inactive AMLODIPINE BESYLATE 5 MG TABS 1 tablet by mouth daily AMLODIPINE BESYLATE 5 MG TABS 892439 AMLODIPINE BESYLATE Inactive LOVENOX 100 MG/ML SC SOLN One injection twice a day 09/15/15 LOVENOX 100 MG/ML SC SOLN 135814 ENOXAPARIN SODIUM Inactive Vital Signs Date Name [...] Range Description Chart Maintenance: hemoccult added to [facility] - Chemistry occult blood, stool (E&M) Positive Lab Report: HGBA1C - Chemistry hemoglobin A1C, blood, as % of total hemoglobin 6.6 % 4.3-6.0 Lab Report: Lipid Panel, HEPATIC PANEL, MICROALB/CREAT W/RATIO, HGBA1C, CBC - Chemistry albumin/creatinine ratio, urine < 30 mg/g mg/g{creat} 0-2 9 hemoglobin A1C, blood, as % of total hemoglobin 6.3 % 4.3-6.0 alanine aminotransferase (SGPT), serum 29 U/L 12-78 bilirubin, serum, total 0.60 mg/dL 0.00-1.00 aspartate aminotransferase (SGOT), serum 24 U/L 15-37 LDL cholesterol, serum 60 mg/dL 0-130 HDL cholesterol, serum 39 mg/dL 32-96 triglyceride, serum, fasting 187 mg/dL 30-200 cholesterol, serum 136 mg/dL 130-200 Lab Report: Lipid Panel, HEPATIC PANEL, MICROALB/CREAT [...] Time - Coagulati on prothrombin time (patient) 15.4 SECS s 11.1-13.4 international normalized ratio (INR) 1.5 1.0-3.5 prothrombin time (patient) 19.9 SECS s 11.1-13.4 international normalized ratio (INR) 2.4 1.0-3.5 international normalized ratio (INR) 1.8 1.0-3.5 prothrombin time (patient) 15.8 SECS s 11.1-13.4 prothrombin time (patient) 17.8 SECS s 11.1-13.4 international normalized ratio (INR) 2.0 1.0-3.5 prothrombin time (patient) 21.3 SECS s 11.1-13.4 international normalized ratio (INR) 2.7 1.0-3.5 prothrombin time (patient) 19.9 SECS s 11.1-13.4 international normalized ratio (INR) 2.4 1.0-3.5 international normalized ratio (INR) 2.0 1.0-3.5 prothrombin time (patient) 16.9 SECS s 11.1-13.4 Encounters Code Encounter Date Provider Facility CPT-91705 Level 3 Est. Patient 15:10:14 CDT Joe kamara [facility] CPT-95155 Level 3 Est. Patient 15:03:46 CDT Joe kamara [facility] CPT-65492 Level 3 Est. Patient 14:21:06 CDT Mitch luis [facility] CPT-87919 Level 3 Est. Patient 14:52:06 CDT Joe kamara [facility] CPT-70138 Level 3 Est. Patient 09:34:30 [employer] Mitch luis [facility] CPT-28383 Level 3 Est. Patient 09:37:15 CDT Mitch luis [facility] CPT-24052 Level 3 Est. Patient 17:01:00 [employer] Mitch luis [facility] CPT-40513 Level 3 Est. Patient 13:53:19 [employer] Mitch luis [facility] CPT-00383 Level 3 Est. Patient 19:19:37 [employer] Mitch luis [facility] CPT-51429 Level 3 Est. Patient 13:25:53 [employer] Tavo toure MD [facility] CPT-97001 Level 3 Est. Patient 18:17:28 CDT Mitch luis [facility] CPT-05198 Level 3 Est. Patient 15:22:57 CDT Mitch Arnol luis DO [facility] CPT-41827 Level 3 Est. Patient 18:21:50 CDT Mitch W L janelle [facility] CPT-43362 Level 3 Est. Patient 18:20:38 CDT Mitch Arnol luis [facility] CPT-07897 Level 3 Est. Patient 15:37:55 CDT Mitch Arnol luis [facility] CPT-34865 Level 2 Est. Patient 15:54:44 CDT Carmine benton MD [facility] CPT-24887 Level 3 Est. Patient 21:46:01 [employer] Mitch luis [facility] CPT-06384 Level 3 Est. Patient 22:15:50 CDT Mitch Arnol luis [facility] CPT-92023 Level 3 Est. Patient 10:48:15 CDT Mitch luis [facility] CPT-62019 Level 3 Est. Patient 23:20:57 CDT Tavo toure MD [facility] CPT-94443 Level 3 Est. Patient 16:26:13 CDT Mitch Castellano janelle [facility] Procedures Code Procedure Name Date Entry Date Standard Desc ription CPT-09704 PT/INR - LAB USE ONLY 13:32:49 [employer] CPT-67887 Venipuncture Draw Fee 13:32:49 [employer] CPT-72883 PT/INR - LAB USE ONLY 10:34:49 [employer] CPT-22723 Venipuncture Draw Fee 10:34:48 [employer] CPT-47727 PT/INR - LAB USE ONLY 09:22:03 [employer] CPT-33400 Venipuncture Draw Fee 09:22:02 [employer] CPT-08286 Hemoccult IFOBT - LAB USE ONLY 10:27:22 CDT CPT-30124 Venipuncture Draw Fee 08:27:08 CDT CPT-19092 Liver Profile - LAB USE ONLY 08:27:07 CDT 2 CPT-76891 Microalbumin - LAB USE ONLY 08:27:07 CDT 20 25/05/09 CPT-45790 PT/INR - LAB USE ONLY 08:27:07 CDT CPT-37556 HGBA1C - LAB USE ONLY 08:27:07 CDT CPT-75128 CBC - LAB USE ONLY 08:27:07 CDT CPT-28859 Venipuncture Draw Fee 11:09:14 CDT CPT-99077 Venipuncture Draw Fee 08:32:21 [employer] CPT-29393 Venipuncture Draw Fee 09:38:56 [employer] CPT-67769 No Charge Offi Visit 21:36:07 CDT 1 CPT-61719 Venipuncture Draw Fee 10:13:28 [employer] CPT-46412 Venipuncture Draw Fee 08:31:11 CDT CPT-67290 Aspir/Inject Med Joint 18:17:28 CDT CPT-70125 Venipuncture Draw Fee 10:13:30 CDT CPT-07792 Venipuncture Draw Fee 08:31:43 [employer] CPT-JTINJ Joint Injection 18:34:50 CDT CPT-71185 Knee 3V 12:25:09 CDT CPT-76333 Venipuncture Draw Fee 12:15:57 CDT CPT-060 Medical Surveillance Exam 21:31:43 CDT 2011 CPT-60357 Venipuncture Draw Fee 08:32:05 [employer] CPT-OV Office Visit 18:19:06 CDT
--- OUTSIDE RECORDS SUMMARY | 2020-01-18 11:50 | XMS REPORT | Clinical Summary ---
Author Author Admin, Mitch Leon Organization [facility] Address Unknown Phone Unavailable Allergies, Adverse Reactions, [...] Coronary atherosclerosis of unspecified type of vessel, [place] or graft EDEMA 782.3 Resolved Mitch Urbina [...] Generic Name NDC Status Provider Patient Instruction JANUVIA TABS 50MG TAKE 1 TABLET DAILY SITAGLIPT IN PHOSPHATE 96776299205 Active Maria Rivas RN Active INVOKANA TABS 100MG TAKE 1 TABLET DAILY CANAGLIFL OZIN 64955812787 Active Maria Rivas RN Active AMLODIPINE BESYLATE 5 MG ORAL TABLET 1 tablet by mouth daily 201 05/19/02 AMLODIPINE BESYLATE 47437455366 No Longer Active Maria Briones Active WARFARIN TABS 1MG TAKE 2 TABLETS (2 MG) DAILY WITH THE 5 MG TABLET TO EQUAL 7 MG DAILY WARFARIN SODIUM 02426322605 Active Maria Briones Active WARFARIN SODIUM 5 MG TABS TAKE 1 TABLET DAILY W ARFARIN SODIUM 23714180782 Active Allison Anthony APRN-C Active KEFLEX 500 MG ORAL CAPSULE 1 capsule by mouth three times da rocky x10 days CEPHALEXIN 97727000828 No Longer Active Maria landaverde RN Active METOPROLOL TARTRATE TABS 50MG TAKE 1 TABLET TWICE A DAY ([facility]) METOPROLOL TARTRATE 52124649110 Active Maria Briones Active DOXAZOSIN MESYLATE 2 MG ORAL TABLET 1 po q day for pr ostate and blood pressure DOXAZOSIN MESYLATE 75505475163 Active Mitch Urbina DO Active LOSARTAN TABS 100MG TAKE 1 TABLET DAILY FOR BLOOD PRESSURE LOSARTAN POTASSIUM 29694947216 Active Maria Rivas RN Active FLUTICASONE PROPIONATE 50 MCG/ACT NASAL SUSPENSION 1 s pray each nostril twice daily for 1 week, then once daily FLUTICASONE FL OPIONATE 83955878735 Active 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 PREDNISONE 20 MG ORAL TABLET 2 tabs daily for 3 days 1 tab d aily for 3 days PREDNISONE 44568610079 No Longer Active 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 MINOXIDIL 2.5 MG ORAL TABLET 1 tablet twice daily for high b lood pressure MINOXIDIL 95194159466 Active Mitch Urbina DO Ac tive METFORMIN HCL ER 500 MG ORAL TABLET EXTENDED RELEASE 2 4 HOUR 2 tablets by mouth twice daily METFORMIN HCL 74790776744 Active Mitch Urbina DO Active GLIMEPIRIDE 4 MG ORAL TABLET 1 tablet by mouth twice daily f or diabetes GLIMEPIRIDE 57545794246 Active Mitch Urbina DO Active GLIMEPIRIDE 2 MG ORAL TABLET 1 po BID GLIMEPI RIDE 47399272519 No Longer Active Mitch Urbina DO Active PROVIGIL 200 MG ORAL TABLET 1/2 tab po q day MODA FINIL 63961953333 Active Maria Rivas RN Active FAMOTIDINE 20 MG ORAL TABLET by mouth twice a day 2017 FAMOTIDINE 96340078258 No Longer Active Mitch Urbina DO Active COLCRYS 0.6 MG ORAL TABLET 1 tab qid prn gout C OLCHICINE 01719429803 No Longer Active Mitch Urbina DO Active KEFLEX 500 MG ORAL CAPSULE 1 po qid CEPHALEXI N 75787801117 No Longer Active Mitch Urbina DO Active AMLODIPINE BESYLATE 5 MG ORAL TABLET 1 tablet by mouth daily 201 01/20/04 AMLODIPINE BESYLATE 38620432557 No Longer Active Joe fulton APRN Active MITIGARE 0.6 MG ORAL CAPSULE 2 capsules at onset of go ut pain, then take one capsule at 1 hour if symptoms persist. COLCHICINE 59 654234966 Active Mitch Urbina DO Active MECLIZINE HCL 25 MG ORAL TABLET 1 po tid 3 days, then 1/2 ta b tid 3 days MECLIZINE HCL 45219573862 No Longer Active Corey SEGURA Active ALLOPURINOL 300 MG ORAL TABLET Take 1 tablet by mouth daily 2012 ALLOPURINOL 44416509320 No Longer Active Corey SEGURA Active CLONIDINE HCL 0.1 MG ORAL TABLET 1 po bid 7 days, then 1/2 t ab po bid 7 days CLONIDINE HCL 72451123086 No Longer Active Corey SEGURA Active COUMADIN 4 MG ORAL TABLET 1 tablet daily WARFAR IN SODIUM 38389483166 No Longer Active Corey SEGURA Active POLYTRIM 34866-5.1 UNIT/ML-% OPHTHALMIC SOLUTION 1 rui p in affected eye every 3 hours while awake x 7 days POLYMYXIN B-TRIMETHOP RIM 46754079548 No Longer Active Corey SEGURA Active LOSARTAN POTASSIUM-HCTZ 100-12.5 MG ORAL TABLET 1 by m outh daily for high blood pressure LOSARTAN POTASSIUM-HCTZ 58948298481 No Longer A ctive Mitch Urbina DO Active LISINOPRIL-HYDROCHLOROTHIAZIDE 20-12.5 MG ORAL TABLET 1 tab by m outh daily LISINOPRIL-HYDROCHLOROTHIAZIDE 27249359738 No Longer Active Mitch Urbina DO Active LISINOPRIL 20 MG ORAL TABLET 1 tab po at HS LIS INOPRIL 46230443564 No Longer Active Mitch Urbina DO Active COUMADIN 5 MG ORAL TABLET 1 by mouth every other day 2 WARFARIN SODIUM 57629665022 No Longer Active Mitch Urbina DO Active COUMADIN 6 MG ORAL TABLET 1 by mouth every other day 2 WARFARIN SODIUM 62615054386 No Longer Active Mitch Urbina DO Active SIMVASTATIN 40 MG ORAL TABLET 1 tab daily at bedtime SIMVASTATIN 31912049610 Active Maria Rivas RN Active SIMVASTATIN 20 MG ORAL TABLET 1 tab daily at bedtime 2 SIMVASTATIN 29500084275 No Longer Active Mitch Urbina DO Active LOVENOX 100 MG/ML SUBCUTANEOUS SOLUTION One injection twice a da y ENOXAPARIN SODIUM 52742395829 No Longer Active Carmine Yusuf MD Active JANUVIA 100 MG ORAL TABLET 1/2 by mouth every day 2011 SITAGLIPTIN PHOSPHATE 86543932393 No Longer Active Bijal Segal RN Acti ve METFORMIN HCL 500 MG ORAL TABLET 2 by mouth twice daily METFORMIN HCL 18839597269 No Longer Active Renee Oconnor LPN Active COLCRYS 0.6 MG ORAL TABLET 1 po q 6 hours prn gout pain COLCHICINE 25406277242 No Longer Active Camila Reese Active LISINOPRIL 5 MG ORAL TABLET 1 by mouth every day 11/17 LISINOPRIL 03479673865 No Longer Active Nguyen Perez Active KLOR-CON 20 MEQ ORAL PACKET Take one by mouth daily 20 09/10/08 POTASSIUM CHLORIDE 10273652211 No Longer Active Nguyen Perez Active FUROSEMIDE 40 MG ORAL TABLET 1 by mouth daily F UROSEMIDE 92228514232 No Longer Active Nguyen Perez Active PROVIGIL 100 MG ORAL TABLET Take one by mouth daily 20 08/20/04 MODAFINIL 76509302661 No Longer Active Mitch Urbina DO Active BACTRIM DS 800-160 MG ORAL TABLET 1 tab by mouth twice daily 201 10/19/09 TRIMETHOPRIM-SULFAMETHOXAZOLE 02514756945 No Longer Active C alberto Hays MD Active ADULT ASPIRIN LOW STRENGTH 81 MG ORAL TABLET DISINTEGR ATING 1 by mouth every daily ASPIRIN 34960988016 Active Mitch Urbina DO Ac tive BACTRIM DS 800-160 MG ORAL TABLET 1 tab by mouth twice daily 201 10/19/09 BACTRIM DS 800-160 MG ORAL TABLET 534378 TRIMETHOPRIM-SULFAMETHOXAZOLE Inactive PROVIGIL 100 MG ORAL TABLET Take one by mouth daily 08/20/04 PROVIGIL 100 MG ORAL TABLET 333572 MODAFINIL Inactive FUROSEMIDE 40 MG ORAL TABLET 1 by mouth daily FUROSEMIDE 40 MG ORAL TABLET 337235 FUROSEMIDE Inactive KLOR-CON 20 MEQ ORAL PACKET Take one by mouth daily 09/10/08 KLOR- CON 20 MEQ ORAL PACKET 3369635 POTASSIUM CHLORIDE Inactive LISINOPRIL 5 MG ORAL TABLET 1 by mouth every day 11/17 LISINOPRIL 5 MG ORAL TABLET 664030 LISINOPRIL Inactive COLCRYS 0.6 MG ORAL TABLET 1 po q 6 hours prn gout pain COLCRYS 0.6 MG ORAL TABLET 956767 COLCHICINE Inactive JANUVIA 100 MG ORAL TABLET 1/2 by mouth every day 2011 JANUVIA 100 MG ORAL TABLET SITAGLIPTIN PHOSPHATE Inactive SIMVASTATIN 20 MG ORAL TABLET 1 tab daily at bedtime 2 SIMVASTATIN 20 MG ORAL TABLET 477889 SIMVASTATIN Inactive COUMADIN 6 MG ORAL TABLET 1 by mouth every other day 2 COUMADIN 6 MG ORAL TABLET 152095 WARFARIN SODIUM Inactive COUMADIN 5 MG ORAL TABLET 1 by mouth every other day 2 COUMADIN 5 MG ORAL TABLET 516932 WARFARIN SODIUM Inactive LISINOPRIL 20 MG ORAL TABLET 1 tab po at HS LISINOPRIL 20 MG ORAL TABLET 767895 LISINOPRIL Inactive LISINOPRIL-HYDROCHLOROTHIAZIDE 20-12.5 MG ORAL TABLET 1 tab by m outh daily LISINOPRIL-HYDROCHLOROTHIAZIDE 20-12.5 MG ORAL TABLET 198824 LISINOPRIL-HYDROCHLOROTHIAZIDE Inactive POLYTRIM 22368-4.1 UNIT/ML-% OPHTHALMIC SOLUTION 1 rui p in affected eye every 3 hours while awake x 7 days POLYTRIM 1000 0-0.1 UNIT/ML-% OPHTHALMIC SOLUTION 581137 POLYMYXIN B-TRIMETHOPRIM Inactive COUMADIN 4 MG ORAL TABLET 1 tablet daily COUMADIN 4 MG ORAL TABLET 481916 WARFARIN SODIUM Inactive CLONIDINE HCL 0.1 MG ORAL TABLET 1 po bid 7 days, then 1/2 t ab po bid 7 days CLONIDINE HCL 0.1 MG ORAL TABLET 714739 CLONIDIN E HCL Inactive ALLOPURINOL 300 MG ORAL TABLET Take 1 tablet by mouth daily 2012 ALLOPURINOL 300 MG ORAL TABLET 641860 ALLOPURINOL I nactive MECLIZINE HCL 25 MG ORAL TABLET 1 po tid 3 days, then 1/2 ta b tid 3 days MECLIZINE HCL 25 MG ORAL TABLET 948672 MECLIZINE HCL Inactive AMLODIPINE BESYLATE 5 MG ORAL TABLET 1 tablet by mouth daily 201 01/20/04 AMLODIPINE BESYLATE 5 MG ORAL TABLET 084667 AMLODIPINE BESYLATE Inactive KEFLEX 500 MG ORAL CAPSULE 1 po qid K EFLEX 500 MG ORAL CAPSULE 999796 CEPHALEXIN Inactive COLCRYS 0.6 MG ORAL TABLET 1 tab qid prn gout COLCRYS 0.6 MG ORAL TABLET 981926 COLCHICINE Inactive FAMOTIDINE 20 MG ORAL TABLET by mouth twice a day 2017 FAMOTIDINE 20 MG ORAL TABLET 652862 FAMOTIDINE Inactive GLIMEPIRIDE 2 MG ORAL TABLET 1 po BID GLIMEPIRIDE 2 MG ORAL TABLET 887545 GLIMEPIRIDE Inactive AMLODIPINE BESYLATE 5 MG ORAL TABLET 1 tablet by mouth daily 201 05/19/02 AMLODIPINE BESYLATE 5 MG ORAL TABLET 909010 AMLODIPINE BESYLATE Inactive LOVENOX 100 MG/ML SUBCUTANEOUS SOLUTION One injection twice a da y LOVENOX 100 MG/ML SUBCUTANEOUS SOLUTION 194476 ENOXAPAR IN SODIUM Inactive PREDNISONE 20 MG ORAL TABLET 2 tabs daily for 3 days 1 tab d aily for 3 days PREDNISONE 20 MG ORAL TABLET 583787 PREDNISONE Inactive KEFLEX 500 MG ORAL CAPSULE 1 capsule by mouth three times da rocky x10 days KEFLEX 500 MG ORAL CAPSULE 674000 CEPHALEXIN I nactive Advance Directives Directive Description [...] - Chem istry sodium, serum 138 mmol/L 448-091 9469/11/07 potassium, serum 4.5 mmol/L 3.5-5.2 chloride, serum 100 mmol/L 98-107 carbon dioxide, venous blood 30.1 mmol/L 21.0-32 .0 blood glucose 120 mg/dL 65-95 calcium, serum 11.0 mg/dL 8.5-10.1 urea nitrogen, blood 25 mg/dL 7-18 creatinine, serum 0.95 mg/dL 0.60-1.30 Estimated Glomerular Filtration Rate (calc) 84 (?) mL/min/1.73m2 = OR > 60 mL/min Lab Report: Calcium - Chemistry calcium, serum 11.0 mg/dL 8.5-10.1 Lab Report: CBC W/DIFF, Comp. Metabolic Panel - Chemistry calcium, serum 11.3 mg/dL 8.5-10.1 bilirubin, serum, total 0.70 mg/dL 0.00-1.00 sodium, serum 140 mmol/L 150-638 9699/11/01 carbon dioxide, venous blood 28.6 mmol/L 21.0-32 .0 potassium, serum 5.0 mmol/L 3.5-5.2 chloride, serum 103 mmol/L 98-107 blood glucose 151 mg/dL 65-95 urea nitrogen, blood 25 mg/dL 7-18 creatinine, serum 0.97 mg/dL 0.60-1.30 Estimated Glomerular Filtration Rate (calc) 82 (?) mL/min/1.73m2 = OR > 60 mL/min alanine aminotransferase (SGPT), serum 24 U/L 12-78 aspartate aminotransferase (SGOT), serum 31 U/L 15-37 Lab Report: CBC W/DIFF, Comp. Metabolic Panel - Hematology hemoglobin, blood 13.8 g/dL 14.0-18.0 hematocrit, blood 42.8 % 40.0-54.0 mean corpuscular volume, RBC 82 fL 80-97 mean corpuscular hemoglobin, RBC 26.4 pg 27. 0-31.2 mean corpuscular hemoglobin concentration, RBC 32.3 G/DL % 31.8-35.4 red blood cell distribution width 13.7 % 11 .6-14.8 platelet count 326 10^3/MM^3 10*3/mm3 378-576 4620/11/01 erythrocyte (RBC) count 5.24 10^6/MM^3 10*6/mm3 4.50-6.5 0 lymphocytes as percent of blood leukocytes 13.4 % 20.5-51.1 monocytes as percent of blood leukocytes 6.2 % 1.7-9.3 neutrophils as percent of blood leukocytes 77.0 % 42.2-75.2 leukocyte count, blood 8.5 10^3/MM^3 10*3/mm3 4.6-10.2 Lab Report: CBC W/DIFF, Comp. Metabolic Panel [...] mg/dL Encounters Code Encounter Date Provider Facility CPT-11642 [id number] Vst-Est Level IV 16:21:22 CDT Stephy Ambrose [facility] CPT-49370 Level 3 Est. Patient 15:18:36 CDT Becky anderson [facility] CPT-11975 [id number] Vst-Est Level IV 10:06:35 CDT Bru robinson [facility]-31672 [id number] Vst-Est Level IV 10:52:00 [employer] Stephy Ambrose [facility] CPT-55977 Level 3 Est. Patient 18:25:53 CDT Mitch luis [facility] CPT-05632 Level 3 Est. Patient 19:43:34 CDT Mitch luis [facility] CPT-75739 Level 4 Est. Patient 09:30:18 CDT Mitch luis [facility] CPT-13769 Level 3 Est. Patient 15:10:14 CDT Joe Gomez razell [facility] CPT-15545 Level 3 Est. Patient 15:03:46 CDT Devonsonya Jason kamara [facility]-79377 Level 3 Est. Patient 14:21:06 CDT Mitch Arnol Castellano ee [facility] CPT-30129 Level 3 Est. Patient 14:52:06 CDT Devonsonya Jason kamara [facility]-91230 Level 3 Est. Patient 09:34:30 [employer]PET INST[employer]ER HELPER Mitch W L ee [facility] CPT-98688 Level 3 Est. Patient 09:37:15 CDT Mitch W L ee [facility]-24850 Level 3 Est. Patient 17:01:00 [employer]ER [employer]PER Mitch Ambrose L ee [facility] CPT-79569 Level 3 Est. Patient 13:53:19 [employer]ER HELPER Mitch W L janelle [facility] CPT-86387 Level 3 Est. Patient 19:19:37 [employer]PET INST[employer]ER HELPER Mitch W L ee [facility] CPT-74285 Level 3 Est. Patient 13:25:53 [employer]PET [employer]ST[employer]ER HELPER Tavo toure MD [facility]-14929 Level 3 Est. Patient 18:17:28 CDT Mitch W L ee [facility] CPT-04260 Level 3 Est. Patient 15:22:57 CDT Mitch W L ee [facility]-49335 Level 3 Est. Patient 18:21:50 CDT Mitch W L ee [facility] CPT-10579 Level 3 Est. Patient 18:20:38 CDT Mitch W L ee [facility]-55398 Level 3 Est. Patient 15:37:55 CDT Mitch W L ee [facility] CPT-51030 Level 2 Est. Patient 15:54:44 CDT Carmine benton MD -02529 Level 3 Est. Patient 21:46:01 [employer]ER HELPER Mitch Arnol Nona luis [facility] CPT-50868 Level 3 Est. Patient 22:15:50 CDT Mitch Arnol Nona luis [facility] CPT-16020 Level 3 Est. Patient 10:48:15 CDT Mitch luis [facility] CPT-72090 Level 3 Est. Patient 23:20:57 CDT Tavo toure MD [facility] CPT-97821 Level 3 Est. Patient 16:26:13 CDT Mitch luis [facility] Procedures Code Procedure Name Date Entry Date Standard Desc ription CPT-40667 Venipuncture Draw Fee 14:46:55 [employer] CPT-00195 Venipuncture Draw Fee 08:26:21 CDT CPT-67215 Venous Duplex Left Leg XRAY USE ONLY 10:43:10 CDT CPT-96462 Venipuncture Draw Fee 17:04:55 CDT CPT-70469 Venipuncture Draw Fee 17:20:50 CDT CPT-81984 Venipuncture Draw Fee 18:00:48 CDT CPT-92783 Venipuncture Draw Fee 14:56:20 CDT CPT-JTINJ Asp/Joint Injection 18:47:02 CDT CPT-89314 Venipuncture Draw Fee 09:26:17 CDT CPT-93790 PT/INR - LAB USE ONLY 13:32:49 [employer] CPT-62252 Venipuncture Draw Fee 13:32:49 [employer] IN[employer]ER HELPER CPT-10276 PT/INR - LAB USE ONLY 10:34:49 [employer]ER HEL[employer] CPT-71806 Venipuncture Draw Fee 10:34:48 [employer]ER HELPER CPT-43848 PT/INR - LAB USE ONLY 09:22:03 [employer]ER HELPER CPT-71685 Venipuncture Draw Fee 09:22:02 [employer]ER HELPER CPT-73488 Hemoccult IFOBT - LAB USE ONLY 10:27:22 CDT CPT-08416 Venipuncture Draw Fee 08:27:08 CDT CPT-27960 Liver Profile - LAB USE ONLY 08:27:07 CDT 2 CPT-75239 Microalbumin - LAB USE ONLY 08:27:07 CDT 20 25/05/09 CPT-36328 PT/INR - LAB USE ONLY 08:27:07 CDT CPT-83581 HGBA1C - LAB USE ONLY 08:27:07 CDT CPT-25248 CBC - LAB USE ONLY 08:27:07 CDT CPT-78170 Venipuncture Draw Fee 11:09:14 CDT CPT-46412 Venipuncture Draw Fee 08:32:21 [employer]ER [employer] CPT-26584 Venipuncture Draw Fee 09:38:56 [employer]ER HEL[employer] CPT-74486 No Charge Offi Visit 21:36:07 CDT 1 CPT-97137 Venipuncture Draw Fee 10:13:28 [employer] CPT-41168 Venipuncture Draw Fee 08:31:11 CDT CPT-43481 Aspir/Inject Med Joint 18:17:28 CDT CPT-26823 Venipuncture Draw Fee 10:13:30 CDT CPT-15253 Venipuncture Draw Fee 08:31:43 [employer] CPT-JTINJ Joint Injection 18:34:50 CDT CPT-80147 Knee 3V 12:25:09 CDT CPT-12333 Venipuncture Draw Fee 12:15:57 CDT CPT-060 Medical Surveillance Exam 21:31:43 CDT 2011 CPT-56160 Venipuncture Draw Fee 08:32:05 [employer]ER [employer] CPT-OV Office Visit 18:19:06 CDT
--- OUTSIDE RECORDS SUMMARY | 2020-01-18 11:51 | XMS REPORT | Clinical Summary ---
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 Mitch Arnol Carlitos DO Osteoarthrosis, unsp ecified whether generalized or localized, involving lower leg DIZZINESS 780.4 Resolved Mitch Arnlo Carlitos DO Dizziness and giddiness CAROTID BRUIT, [...] Urbina DO Body Mass Index 32.0-32.9, adult SEROMA ICD-998.13 Inactive Mitch Urbina DO REACTIVE [...] Carlitos DO Cough, chronic ICD-786.2 Inactive Mitch W Carlitos D O Sebaceous cyst, infected ICD-706.2 Inactive Mitch W Carlitos DO Cellulitis ICD-682.9 Inactive Mitch W Carlitos DO 10/23 CELLULITIS, GROIN, LEFT ICD-682.2 Inactive Zoya Urbina Medication List Medication Instructions Start Date Stop Date Generic Name [facility] [place][NOTE 2] Status Provider Patient Instruction GLIMEPIRIDE 4 MG ORAL TABLET 1 tablet by mouth twice daily f or diabetes GLIMEPIRIDE 85576186348 Active Mitch Urbina DO Active GLIMEPIRIDE 2 MG ORAL TABLET 1 po BID GLIMEPI RIDE 07247902920 No Longer Active Mitch Urbina DO Active AMLODIPINE BESYLATE 5 MG ORAL TABLET 1 tablet by mouth daily AMLODIPINE BESYLATE 57561452200 Active Mitch Urbina DO Active PROVIGIL 200 MG ORAL TABLET 1/2 tab po q day MODA FINIL 58428796769 Active Renee Oconnor LPN Active FAMOTIDINE 20 MG ORAL TABLET by mouth twice a day 2017 FAMOTIDINE 56819131790 No Longer Active Mitch Arnol Urbina DO Active COLCRYS 0.6 MG ORAL TABLET 1 tab qid prn gout C OLCHICINE 63327110882 No Longer Active Mitch Urbina DO Active KEFLEX 500 MG ORAL CAPSULE 1 po qid CEPHALEXI N 21653311316 No Longer Active Mitch Urbina DO Active LOSARTAN POTASSIUM 100 MG ORAL TABLET 1 pill by mouth daily, for blood pressure LOSARTAN POTASSIUM 19538931442 Active Ana Ocampo Active AMLODIPINE BESYLATE 5 MG ORAL TABLET 1 tablet by mouth daily 201 01/20/04 AMLODIPINE BESYLATE 28120439402 No Longer Active Joe fulton APRN Active MITIGARE 0.6 MG ORAL CAPSULE 2 capsules at onset of go ut pain, then take one capsule at 1 hour if symptoms persist. 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 MECLIZINE HCL 25 MG ORAL TABLET 1 po tid 3 days, then 1/2 ta b tid 3 days MECLIZINE HCL 73316585504 No Longer Active Corey SEGURA Active ALLOPURINOL 300 MG ORAL TABLET Take 1 tablet by mouth daily 2012 ALLOPURINOL 88935479101 No Longer Active Corey SEGURA Active CLONIDINE HCL 0.1 MG ORAL TABLET 1 po bid 7 days, then 1/2 t ab po bid 7 days CLONIDINE HCL 64438390653 No Longer Active Corey SEGURA Active COUMADIN 5 MG ORAL TABLET 1 tab PO daily WARFAR IN SODIUM 55757024723 Active Renee Elvin DE LA ROSA Active COUMADIN 4 MG ORAL TABLET 1 tablet daily WARFAR IN SODIUM 36933052318 No Longer Active Corey SEGURA Active POLYTRIM 77688-0.1 UNIT/ML-% OPHTHALMIC SOLUTION 1 rui p in affected eye every 3 hours while awake x 7 days POLYMYXIN B-TRIMETHOP RIM 04857313911 No Longer Active Corey SEGURA Active LOSARTAN POTASSIUM-HCTZ 100-12.5 MG ORAL TABLET 1 by m outh daily for high blood pressure LOSARTAN POTASSIUM-HCTZ 91212317051 No Longer A ctive Mitch Urbina DO Active LISINOPRIL-HYDROCHLOROTHIAZIDE 20-12.5 MG ORAL TABLET 1 tab by m outh daily LISINOPRIL-HYDROCHLOROTHIAZIDE 36858940225 No Longer Active Mitch Urbina DO Active LISINOPRIL 20 MG ORAL TABLET 1 tab po at HS LIS INOPRIL 14630523413 No Longer Active Mitch Uribna DO Active COUMADIN 5 MG ORAL TABLET 1 by mouth every other day 2 WARFARIN SODIUM 39326716089 No Longer Active Mitch Urbina DO Active COUMADIN 6 MG ORAL TABLET 1 by mouth every other day 2 WARFARIN SODIUM 22562900601 No Longer Active Mitch Urbina DO Active SIMVASTATIN 40 MG ORAL TABLET 1 tab daily at bedtime SIMVASTATIN 28824109879 Active Mitch Urbina DO Active SIMVASTATIN 20 MG ORAL TABLET 1 tab daily at bedtime 2 SIMVASTATIN 16094951805 No Longer Active Mitch Urbina DO Active LOVENOX 100 MG/ML SUBCUTANEOUS SOLUTION One injection twice a da y ENOXAPARIN SODIUM 54753320217 No Longer Active Carmine Yusuf MD Active JANUVIA 50 MG ORAL TABLET Take one by mouth daily SITAGLIPTIN PHOSPHATE 53995080738 Active Renee Oconnoreder DE LA ROSA Active JANUVIA 100 MG ORAL TABLET 1/2 by mouth every day 2011 SITAGLIPTIN PHOSPHATE 10783328810 No Longer Active Bijal Segal RN Acti ve METFORMIN HCL 500 MG ORAL TABLET 2 by mouth twice daily METFORMIN HCL 87423771128 No Longer Active Renee Oconnor LPN Active COLCRYS 0.6 MG ORAL TABLET 1 po q 6 hours prn gout pain COLCHICINE 79703996099 No Longer Active Camila Reese Active LISINOPRIL 5 MG ORAL TABLET 1 by mouth every day 11/17 LISINOPRIL 56077392007 No Longer Active Nguyenmolly Perez Active KLOR-CON 20 MEQ ORAL PACKET Take one by mouth daily 09/10/08 POTASSIUM CHLORIDE 53909152657 No Longer Active Nguyenmolly Perez Active FUROSEMIDE 40 MG ORAL TABLET 1 by mouth daily F UROSEMIDE 88350645610 No Longer Active Nguyen Ana Active PROVIGIL 100 MG ORAL TABLET Take one by mouth daily 08/20/04 MODAFINIL 22038841012 No Longer Active Mitch Urbina DO Active BACTRIM DS 800-160 MG ORAL TABLET 1 tab by mouth twice daily 201 10/19/09 TRIMETHOPRIM-SULFAMETHOXAZOLE 10702984701 No Longer Active Elian Hays MD Active ADULT ASPIRIN LOW STRENGTH 81 MG ORAL TABLET DISINTEGR ATING 1 by mouth every daily ASPIRIN 79984139628 Active Mitch Urbina DO Ac tive METOPROLOL TARTRATE 50 MG ORAL TABLET 1 by mouth twice daily METOPROLOL TARTRATE 24512413954 Active Ana Terrence Activ e BACTRIM DS 800-160 MG ORAL TABLET 1 tab by mouth twice daily 201 10/19/09 BACTRIM DS 800-160 MG ORAL TABLET 580506 TRIMETHOPRIM-SULFAMETHOXAZOLE Inactive PROVIGIL 100 MG ORAL TABLET Take one by mouth daily 08/20/04 PROVIGIL 100 MG ORAL TABLET 694898 MODAFINIL Inactive FUROSEMIDE 40 MG ORAL TABLET 1 by mouth daily FUROSEMIDE 40 MG ORAL TABLET 287292 FUROSEMIDE Inactive KLOR-CON 20 MEQ ORAL PACKET Take one by mouth daily 09/10/08 KLOR- CON 20 MEQ ORAL PACKET 2098918 POTASSIUM CHLORIDE Inactive LISINOPRIL 5 MG ORAL TABLET 1 by mouth every day 11/17 LISINOPRIL 5 MG ORAL TABLET 980400 LISINOPRIL Inactive COLCRYS 0.6 MG ORAL TABLET 1 po q 6 hours prn gout pain COLCRYS 0.6 MG ORAL TABLET 000674 COLCHICINE Inactive JANUVIA 100 MG ORAL TABLET 1/2 by mouth every day 2011 JANUVIA 100 MG ORAL TABLET SITAGLIPTIN PHOSPHATE Inactive SIMVASTATIN 20 MG ORAL TABLET 1 tab daily at bedtime 2 SIMVASTATIN 20 MG ORAL TABLET 421015 SIMVASTATIN Inactive COUMADIN 6 MG ORAL TABLET 1 by mouth every other day 2 COUMADIN 6 MG ORAL TABLET 052710 WARFARIN SODIUM Inactive COUMADIN 5 MG ORAL TABLET 1 by mouth every other day 2 COUMADIN 5 MG ORAL TABLET 736259 WARFARIN SODIUM Inactive LISINOPRIL 20 MG ORAL TABLET 1 tab po at HS LISINOPRIL 20 MG ORAL TABLET 167737 LISINOPRIL Inactive LISINOPRIL-HYDROCHLOROTHIAZIDE 20-12.5 MG ORAL TABLET 1 tab by m outh daily LISINOPRIL-HYDROCHLOROTHIAZIDE 20-12.5 MG ORAL TABLET 305133 LISINOPRIL-HYDROCHLOROTHIAZIDE Inactive POLYTRIM 84401-9.1 UNIT/ML-% OPHTHALMIC SOLUTION 1 rui p in affected eye every 3 hours while awake x 7 days POLYTRIM 1000 0-0.1 UNIT/ML-% OPHTHALMIC SOLUTION 407236 POLYMYXIN B-TRIMETHOPRIM Inactive COUMADIN 4 MG ORAL TABLET 1 tablet daily COUMADIN 4 MG ORAL TABLET 169146 WARFARIN SODIUM Inactive CLONIDINE HCL 0.1 MG ORAL TABLET 1 po bid 7 days, then 1/2 t ab po bid 7 days CLONIDINE HCL 0.1 MG ORAL TABLET 787529 CLONIDIN E HCL Inactive ALLOPURINOL 300 MG ORAL TABLET Take 1 tablet by mouth daily 2012 ALLOPURINOL 300 MG ORAL TABLET 491369 ALLOPURINOL I nactive MECLIZINE HCL 25 MG ORAL TABLET 1 po tid 3 days, then 1/2 ta b tid 3 days MECLIZINE HCL 25 MG ORAL TABLET 652840 MECLIZINE HCL Inactive AMLODIPINE BESYLATE 5 MG ORAL TABLET 1 tablet by mouth daily 201 01/20/04 AMLODIPINE BESYLATE 5 MG ORAL TABLET 567180 AMLODIPINE BESYLATE Inactive KEFLEX 500 MG ORAL CAPSULE 1 po qid K EFLEX 500 MG ORAL CAPSULE 530978 CEPHALEXIN Inactive COLCRYS 0.6 MG ORAL TABLET 1 tab qid prn gout COLCRYS 0.6 MG ORAL TABLET 407201 COLCHICINE Inactive FAMOTIDINE 20 MG ORAL TABLET by mouth twice a day 2017 FAMOTIDINE 20 MG ORAL TABLET 498432 FAMOTIDINE Inactive GLIMEPIRIDE 2 MG ORAL TABLET 1 po BID GLIMEPIRIDE 2 MG ORAL TABLET 175527 GLIMEPIRIDE Inactive LOVENOX 100 MG/ML SUBCUTANEOUS SOLUTION One injection twice a da y LOVENOX 100 MG/ML SUBCUTANEOUS SOLUTION 467413 ENOXAPAR IN SODIUM Inactive Vital Signs Date [...] 4.3-6.0 Encounters Code Encounter Date Provider Facility CPT-17703 [id number] Vst-Est Level IV 10:52:00 SERVICE CONTROL OPERATOR Stephy Urbina [facility] CPT-19518 Level 3 Est. Patient 18:25:53 CDT Mitch luis [facility] CPT-23381 Level 3 Est. Patient 19:43:34 CDT Mitch luis [facility] CPT-37048 Level 4 Est. Patient 09:30:18 CDT Mitch luis [facility] CPT-17049 Level 3 Est. Patient 15:10:14 CDT Joe kamara Formerly named [facility] CPT-66454 Level 3 Est. Patient 15:03:46 CDT Joe kamara Formerly named [facility] CPT-80661 Level 3 Est. Patient 14:21:06 CDT Mitch luis [facility] CPT-34360 Level 3 Est. Patient 14:52:06 CDT Joe kamara Formerly named [facility] CPT-37177 Level 3 Est. Patient 09:34:30 SERVICE CONTROL OPERATOR Mitch luis [facility] CPT-05998 Level 3 Est. Patient 09:37:15 CDT Mitch luis [facility] CPT-94718 Level 3 Est. Patient 17:01:00 SERVICE CONTROL OPERATOR Mitch luis [facility] CPT-90041 Level 3 Est. Patient 13:53:19 SERVICE CONTROL OPERATOR Mitch luis [facility] CPT-97853 Level 3 Est. Patient 19:19:37 SERVICE CONTROL OPERATOR Mitch luis [facility] CPT-21212 Level 3 Est. Patient 13:25:53 SERVICE CONTROL OPERATOR Tavo toure MD [facility] CPT-08092 Level 3 Est. Patient 18:17:28 CDT Mitch Arnol luis [facility] CPT-68035 Level 3 Est. Patient 15:22:57 CDT Mitch Arnol luis [facility] CPT-85232 Level 3 Est. Patient 18:21:50 CDT Mitch luis [facility] CPT-57583 Level 3 Est. Patient 18:20:38 CDT Mitch Arnol luis [facility] CPT-54561 Level 3 Est. Patient 15:37:55 CDT Mitch luis [facility] CPT-07264 Level 2 Est. Patient 15:54:44 CDT Carmine benton MD [facility] CPT-24771 Level 3 Est. Patient 21:46:01 SERVICE CONTROL OPERATOR Mitch luis [facility] CPT-91343 Level 3 Est. Patient 22:15:50 CDT Mitch luis [facility] CPT-51446 Level 3 Est. Patient 10:48:15 CDT Mitch luis [facility] CPT-82494 Level 3 Est. Patient 23:20:57 CDT Tavo toure MD [facility] CPT-35423 Level 3 Est. Patient 16:26:13 CDT Mitch Castellano janelle [facility] Procedures Code Procedure Name Date Entry Date Standard Desc ription CPT-JTINJ Asp/Joint Injection 18:47:02 CDT CPT-45871 Venipuncture Draw Fee 09:26:17 CDT CPT-04843 PT/INR - LAB USE ONLY 13:32:49 SERVICE CONTROL OPERATOR CPT-01809 Venipuncture Draw Fee 13:32:49 SERVICE CONTROL OPERATOR CPT-83975 PT/INR - LAB USE ONLY 10:34:49 SERVICE CONTROL OPERATOR CPT-22156 Venipuncture Draw Fee 10:34:48 SERVICE CONTROL OPERATOR CPT-30927 PT/INR - LAB USE ONLY 09:22:03 SERVICE CONTROL OPERATOR CPT-36430 Venipuncture Draw Fee 09:22:02 SERVICE CONTROL OPERATOR CPT-10796 Hemoccult IFOBT - LAB USE ONLY 10:27:22 CDT CPT-62562 Venipuncture Draw Fee 08:27:08 CDT CPT-87021 Liver Profile - LAB USE ONLY 08:27:07 CDT 2 CPT-57981 Microalbumin - LAB USE ONLY 08:27:07 CDT 20 25/05/09 CPT-33218 PT/INR - LAB USE ONLY 08:27:07 CDT CPT-97001 HGBA1C - LAB USE ONLY 08:27:07 CDT CPT-45437 CBC - LAB USE ONLY 08:27:07 CDT CPT-28917 Venipuncture Draw Fee 11:09:14 CDT CPT-95241 Venipuncture Draw Fee 08:32:21 SERVICE CONTROL OPERATOR CPT-03766 Venipuncture Draw Fee 09:38:56 SERVICE CONTROL OPERATOR CPT-26163 No Charge Offi Visit 21:36:07 CDT 1 CPT-73671 Venipuncture Draw Fee 10:13:28 SERVICE CONTROL OPERATOR CPT-93440 Venipuncture Draw Fee 08:31:11 CDT CPT-58048 Aspir/Inject Med Joint 18:17:28 CDT CPT-64704 Venipuncture Draw Fee 10:13:30 CDT CPT-31177 Venipuncture Draw Fee 08:31:43 SERVICE CONTROL OPERATOR CPT-JTINJ Joint Injection 18:34:50 CDT CPT-51358 Knee 3V 12:25:09 CDT CPT-64822 Venipuncture Draw Fee 12:15:57 CDT CPT-060 Medical Surveillance Exam 21:31:43 CDT 2011 CPT-95994 Venipuncture Draw Fee 08:32:05 SERVICE CONTROL OPERATOR CPT-OV Office Visit 18:19:06 CDT
--- OUTSIDE RECORDS SUMMARY | 2020-01-18 11:51 | XMS REPORT | Clinical Summary ---
Author Author Admin, Mitch Leon Organization [facility] Address Unknown Phone Unavailable Allergies, Adverse Reactions, [...] Coronary atherosclerosis of unspecified type of vessel, gambell or graft EDEMA 782.3 Resolved Mitch Urbina DO Ed antonia DEGENERATIVE JOINT DISEASE, KNEES, 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 3 Active Mitch Arnol Carlitos DO Osteoarthrosis, unsp ecified whether generalized or localized, involving lower leg DIZZINESS 780.4 Resolved Mitch Arnol Carlitos DO Dizziness and giddiness CAROTID BRUIT, LEFT 785.9 Active Mitch W Carlitos DO Other symptoms involving cardiovascular system GOUT, RIGHT WRIST 274.9 Resolved Micth Arnol Carlitos DO Gout, unspecified BRUISE 924.9 [...] Instructions Start Date Stop Date Generic Name [facility] Status Provider Patient Instruction GLIMEPIRIDE 4 MG ORAL TABLET 1 tablet by mouth twice daily f or diabetes GLIMEPIRIDE 33965573355 Active Mitch Urbina DO Active GLIMEPIRIDE 2 MG ORAL TABLET 1 po BID GLIMEPI RIDE 97169482079 No Longer Active Mitch Urbina DO Active AMLODIPINE BESYLATE 5 MG ORAL TABLET 1 tablet by mouth daily AMLODIPINE BESYLATE 63510203782 Active Mitch Urbina DO Active PROVIGIL 200 MG ORAL TABLET 1/2 tab po q day MODA FINIL 73124124449 Active Renee Oconnor LPN Active FAMOTIDINE 20 MG ORAL TABLET by mouth twice a day 2017 FAMOTIDINE 91493880104 No Longer Active Mitch Urbina DO Active COLCRYS 0.6 MG ORAL TABLET 1 tab qid prn gout C OLCHICINE 29081620076 No Longer Active Mitch Urbina DO Active KEFLEX 500 MG ORAL CAPSULE 1 po qid CEPHALEXI N 75406381161 No Longer Active Mitch Urbina DO Active LOSARTAN POTASSIUM 100 MG ORAL TABLET 1 pill by mouth daily, for blood pressure LOSARTAN POTASSIUM 47993189704 Active Ana Ocampo Active AMLODIPINE BESYLATE 5 MG ORAL TABLET 1 tablet by mouth daily 201 01/20/04 AMLODIPINE BESYLATE 16222359427 No Longer Active Joe fulton APRN Active MITIGARE 0.6 MG ORAL CAPSULE 2 capsules at onset of go ut pain, then take one capsule at 1 hour if symptoms persist. COLCHICINE 59 407528210 Active Mitch Urbina DO Active COUMADIN 1 MG ORAL TABLET 2 tabs orally daily with the 5mg tab to equal 7mg daily WARFARIN SODIUM 00205513961 Active Renee Oconnor LPN Active INVOKANA 100 MG ORAL TABLET 1 tablet orally daily CANAGLIFLOZIN 49996639387 Active Renee Quirogamonserrat BURNETTN Active MINOXIDIL 2.5 MG ORAL TABLET 1 tablet daily for high blood press ure MINOXIDIL 95860611300 Active Renee Oconnor RADIOLOGY TRANSPORTER Active MECLIZINE HCL 25 MG ORAL TABLET 1 po tid 3 days, then 1/2 ta b tid 3 days MECLIZINE HCL 35689561201 No Longer Active Corey SEGURA Active ALLOPURINOL 300 MG ORAL TABLET Take 1 tablet by mouth daily 2012 ALLOPURINOL 73736752599 No Longer Active Corey SEGURA Active CLONIDINE HCL 0.1 MG ORAL TABLET 1 po bid 7 days, then 1/2 t ab po bid 7 days CLONIDINE HCL 30547371607 No Longer Active Corey SEGURA Active COUMADIN 5 MG ORAL TABLET 1 tab PO daily WARFAR IN SODIUM 70271559752 Active Renee Elvin DE LA ROSA Active COUMADIN 4 MG ORAL TABLET 1 tablet daily WARFAR IN SODIUM 32232375052 No Longer Active Corey SEGURA Active POLYTRIM 88744-0.1 UNIT/ML-% OPHTHALMIC SOLUTION 1 rui p in affected eye every 3 hours while awake x 7 days POLYMYXIN B-TRIMETHOP RIM 66470995748 No Longer Active Corey SEGURA Active LOSARTAN POTASSIUM-HCTZ 100-12.5 MG ORAL TABLET 1 by m outh daily for high blood pressure LOSARTAN POTASSIUM-HCTZ 44753719179 No Longer A ctive Mitch Urbina DO Active LISINOPRIL-HYDROCHLOROTHIAZIDE 20-12.5 MG ORAL TABLET 1 tab by m outh daily LISINOPRIL-HYDROCHLOROTHIAZIDE 75677882585 No Longer Active Mitch Urbina DO Active LISINOPRIL 20 MG ORAL TABLET 1 tab po at HS LIS INOPRIL 30461610380 No Longer Active Mitch Urbina DO Active COUMADIN 5 MG ORAL TABLET 1 by mouth every other day 2 WARFARIN SODIUM 79492288025 No Longer Active Mitch Urbina DO Active COUMADIN 6 MG ORAL TABLET 1 by mouth every other day 2 WARFARIN SODIUM 41393438353 No Longer Active Mitch Urbina DO Active SIMVASTATIN 40 MG ORAL TABLET 1 tab daily at bedtime SIMVASTATIN 35519479418 Active Mitch Urbina DO Active SIMVASTATIN 20 MG ORAL TABLET 1 tab daily at bedtime 2 SIMVASTATIN 79046018059 No Longer Active Mitch Urbina DO Active LOVENOX 100 MG/ML SUBCUTANEOUS SOLUTION One injection twice a da y ENOXAPARIN SODIUM 40066812776 No Longer Active Carmine Yusuf MD Active JANUVIA 50 MG ORAL TABLET Take one by mouth daily SITAGLIPTIN PHOSPHATE 41786494025 Active Renee Oconnoreder DE LA ROSA Active JANUVIA 100 MG ORAL TABLET 1/2 by mouth every day 2011 SITAGLIPTIN PHOSPHATE 06516606999 No Longer Active Bijal Segal RN Acti ve METFORMIN HCL 500 MG ORAL TABLET 2 by mouth twice daily METFORMIN HCL 72154176959 No Longer Active Renee Oconnor LPN Active COLCRYS 0.6 MG ORAL TABLET 1 po q 6 hours prn gout pain COLCHICINE 74405223013 No Longer Active Camila Reese Active LISINOPRIL 5 MG ORAL TABLET 1 by mouth every day 11/17 LISINOPRIL 57733419437 No Longer Active Nguyenmolly Perez Active KLOR-CON 20 MEQ ORAL PACKET Take one by mouth daily 09/10/08 POTASSIUM CHLORIDE 81697964189 No Longer Active Nguyenmolly Perez Active FUROSEMIDE 40 MG ORAL TABLET 1 by mouth daily F UROSEMIDE 80705266905 No Longer Active Nguyen Ana Active PROVIGIL 100 MG ORAL TABLET Take one by mouth daily 08/20/04 MODAFINIL 08478465401 No Longer Active Mitch Urbina DO Active BACTRIM DS 800-160 MG ORAL TABLET 1 tab by mouth twice daily 201 10/19/09 TRIMETHOPRIM-SULFAMETHOXAZOLE 33874289747 No Longer Active Elian Hays MD Active ADULT ASPIRIN LOW STRENGTH 81 MG ORAL TABLET DISINTEGR ATING 1 by mouth every daily ASPIRIN 18545499202 Active Mitch Urbina DO Ac tive METOPROLOL TARTRATE 50 MG ORAL TABLET 1 by mouth twice daily METOPROLOL TARTRATE 34115416646 Active Ana Terrence Activ e BACTRIM DS 800-160 MG ORAL TABLET 1 tab by mouth twice daily 201 10/19/09 BACTRIM DS 800-160 MG ORAL TABLET 068011 TRIMETHOPRIM-SULFAMETHOXAZOLE Inactive PROVIGIL 100 MG ORAL TABLET Take one by mouth daily 08/20/04 PROVIGIL 100 MG ORAL TABLET 122392 MODAFINIL Inactive FUROSEMIDE 40 MG ORAL TABLET 1 by mouth daily FUROSEMIDE 40 MG ORAL TABLET 418831 FUROSEMIDE Inactive KLOR-CON 20 MEQ ORAL PACKET Take one by mouth daily 09/10/08 KLOR- CON 20 MEQ ORAL PACKET 6218659 POTASSIUM CHLORIDE Inactive LISINOPRIL 5 MG ORAL TABLET 1 by mouth every day 11/17 LISINOPRIL 5 MG ORAL TABLET 784110 LISINOPRIL Inactive COLCRYS 0.6 MG ORAL TABLET 1 po q 6 hours prn gout pain COLCRYS 0.6 MG ORAL TABLET 713726 COLCHICINE Inactive JANUVIA 100 MG ORAL TABLET 1/2 by mouth every day 2011 JANUVIA 100 MG ORAL TABLET SITAGLIPTIN PHOSPHATE Inactive SIMVASTATIN 20 MG ORAL TABLET 1 tab daily at bedtime 2 SIMVASTATIN 20 MG ORAL TABLET 553399 SIMVASTATIN Inactive COUMADIN 6 MG ORAL TABLET 1 by mouth every other day 2 COUMADIN 6 MG ORAL TABLET 083422 WARFARIN SODIUM Inactive COUMADIN 5 MG ORAL TABLET 1 by mouth every other day 2 COUMADIN 5 MG ORAL TABLET 856026 WARFARIN SODIUM Inactive LISINOPRIL 20 MG ORAL TABLET 1 tab po at HS LISINOPRIL 20 MG ORAL TABLET 676255 LISINOPRIL Inactive LISINOPRIL-HYDROCHLOROTHIAZIDE 20-12.5 MG ORAL TABLET 1 tab by m outh daily LISINOPRIL-HYDROCHLOROTHIAZIDE 20-12.5 MG ORAL TABLET 603443 LISINOPRIL-HYDROCHLOROTHIAZIDE Inactive POLYTRIM 17426-1.1 UNIT/ML-% OPHTHALMIC SOLUTION 1 rui p in affected eye every 3 hours while awake x 7 days POLYTRIM 1000 0-0.1 UNIT/ML-% OPHTHALMIC SOLUTION 391470 POLYMYXIN B-TRIMETHOPRIM Inactive COUMADIN 4 MG ORAL TABLET 1 tablet daily COUMADIN 4 MG ORAL TABLET 378725 WARFARIN SODIUM Inactive CLONIDINE HCL 0.1 MG ORAL TABLET 1 po bid 7 days, then 1/2 t ab po bid 7 days CLONIDINE HCL 0.1 MG ORAL TABLET 222600 CLONIDIN E HCL Inactive ALLOPURINOL 300 MG ORAL TABLET Take 1 tablet by mouth daily 2012 ALLOPURINOL 300 MG ORAL TABLET 952712 ALLOPURINOL I nactive MECLIZINE HCL 25 MG ORAL TABLET 1 po tid 3 days, then 1/2 ta b tid 3 days MECLIZINE HCL 25 MG ORAL TABLET 973691 MECLIZINE HCL Inactive AMLODIPINE BESYLATE 5 MG ORAL TABLET 1 tablet by mouth daily 201 01/20/04 AMLODIPINE BESYLATE 5 MG ORAL TABLET 389083 AMLODIPINE BESYLATE Inactive KEFLEX 500 MG ORAL CAPSULE 1 po qid K EFLEX 500 MG ORAL CAPSULE 441989 CEPHALEXIN Inactive COLCRYS 0.6 MG ORAL TABLET 1 tab qid prn gout COLCRYS 0.6 MG ORAL TABLET 457688 COLCHICINE Inactive FAMOTIDINE 20 MG ORAL TABLET by mouth twice a day 2017 FAMOTIDINE 20 MG ORAL TABLET 131664 FAMOTIDINE Inactive GLIMEPIRIDE 2 MG ORAL TABLET 1 po BID GLIMEPIRIDE 2 MG ORAL TABLET 087507 GLIMEPIRIDE Inactive LOVENOX 100 MG/ML SUBCUTANEOUS SOLUTION One injection twice a da y LOVENOX 100 MG/ML SUBCUTANEOUS SOLUTION 856565 ENOXAPAR IN SODIUM Inactive Vital Signs Date [...] 4.3-6.0 Encounters Code Encounter Date Provider Facility CPT-60510 [id number] Vst-Est Level IV 10:52:00 BAD CREDIT COLLECTOR Stephy Urbina [facility] CPT-40423 Level 3 Est. Patient 18:25:53 CDT Mitch luis [facility] CPT-86763 Level 3 Est. Patient 19:43:34 CDT Mitch luis [facility] CPT-04449 Level 4 Est. Patient 09:30:18 CDT Mitch luis [facility] CPT-85866 Level 3 Est. Patient 15:10:[address] [facility] CPT-94333 Level 3 Est. Patient 15:03:[address] [facility] CPT-14529 Level 3 Est. Patient 14:21:06 CDT Mitch luis [facility] CPT-02645 Level 3 Est. Patient 14:52:[address] [facility] CPT-58091 Level 3 Est. Patient 09:34:30 BAD CREDIT COLLECTOR Mitch luis [facility] CPT-88593 Level 3 Est. Patient 09:37:15 CDT Mitch luis [facility] CPT-48562 Level 3 Est. Patient 17:01:00 BAD CREDIT COLLECTOR Mitch luis [facility] CPT-85333 Level 3 Est. Patient 13:53:19 BAD CREDIT COLLECTOR Mitch luis [facility] CPT-64795 Level 3 Est. Patient 19:19:37 BAD CREDIT COLLECTOR Mitch luis [facility] CPT-16637 Level 3 Est. Patient 13:25:53 BAD CREDIT COLLECTOR Tavo toure MD [facility] CPT-89941 Level 3 Est. Patient 18:17:28 CDT Mitch Arnol luis [facility] CPT-43422 Level 3 Est. Patient 15:22:57 CDT Mitch Arnol luis [facility] CPT-98042 Level 3 Est. Patient 18:21:50 CDT Mitch luis [facility] CPT-19186 Level 3 Est. Patient 18:20:38 CDT Mitch Arnol luis [facility] CPT-55043 Level 3 Est. Patient 15:37:55 CDT Mitch luis [facility] CPT-56893 Level 2 Est. Patient 15:54:44 CDT Carmine benton MD [facility] CPT-82476 Level 3 Est. Patient 21:46:01 BAD CREDIT COLLECTOR Mitch luis [facility] CPT-88886 Level 3 Est. Patient 22:15:50 CDT Mitch luis [facility] CPT-82162 Level 3 Est. Patient 10:48:15 CDT Mitch luis [facility] CPT-10077 Level 3 Est. Patient 23:20:57 CDT Tavo toure MD [facility] CPT-95747 Level 3 Est. Patient 16:26:13 CDT Mitch Castellano janelle [facility] Procedures Code Procedure Name Date Entry Date Standard Desc ription CPT-JTINJ Asp/Joint Injection 18:47:02 CDT CPT-87669 Venipuncture Draw Fee 09:26:17 CDT CPT-54925 PT/INR - LAB USE ONLY 13:32:49 BAD CREDIT COLLECTOR CPT-29458 Venipuncture Draw Fee 13:32:49 BAD CREDIT COLLECTOR CPT-78069 PT/INR - LAB USE ONLY 10:34:49 BAD CREDIT COLLECTOR CPT-24600 Venipuncture Draw Fee 10:34:48 BAD CREDIT COLLECTOR CPT-55351 PT/INR - LAB USE ONLY 09:22:03 BAD CREDIT COLLECTOR CPT-02028 Venipuncture Draw Fee 09:22:02 BAD CREDIT COLLECTOR CPT-50158 Hemoccult IFOBT - LAB USE ONLY 10:27:22 CDT CPT-47240 Venipuncture Draw Fee 08:27:08 CDT CPT-57473 Liver Profile - LAB USE ONLY 08:27:07 CDT 2 CPT-02571 Microalbumin - LAB USE ONLY 08:27:07 CDT 20 25/05/09 CPT-63538 PT/INR - LAB USE ONLY 08:27:07 CDT CPT-98790 HGBA1C - LAB USE ONLY 08:27:07 CDT CPT-91444 CBC - LAB USE ONLY 08:27:07 CDT CPT-03449 Venipuncture Draw Fee 11:09:14 CDT CPT-64273 Venipuncture Draw Fee 08:32:21 BAD CREDIT COLLECTOR CPT-49995 Venipuncture Draw Fee 09:38:56 BAD CREDIT COLLECTOR CPT-86185 No Charge Offi Visit 21:36:07 CDT 1 CPT-91117 Venipuncture Draw Fee 10:13:28 BAD CREDIT COLLECTOR CPT-31338 Venipuncture Draw Fee 08:31:11 CDT CPT-69021 Aspir/Inject Med Joint 18:17:28 CDT CPT-29173 Venipuncture Draw Fee 10:13:30 CDT CPT-08415 Venipuncture Draw Fee 08:31:43 BAD CREDIT COLLECTOR CPT-JTINJ Joint Injection 18:34:50 CDT CPT-84115 Knee 3V 12:25:09 CDT CPT-73951 Venipuncture Draw Fee 12:15:57 CDT CPT-060 Medical Surveillance Exam 21:31:43 CDT 2011 CPT-04573 Venipuncture Draw Fee 08:32:05 BAD CREDIT COLLECTOR CPT-OV Office Visit 18:19:06 CDT
--- OUTSIDE RECORDS SUMMARY | 2020-01-18 11:51 | XMS REPORT | Clinical Summary ---
Author Author Admin, Mitch Leon Organization [facility] [employer] Address Unknown Phone Unavailable Allergies, Adverse Reactions, [...] Coronary atherosclerosis of unspecified type of vessel, [place] or graft EDEMA 782.3 Resolved Mitch Urbina [...] Instructions Start Date Stop Date Generic Name [facility] Status Provider Patient Instruction GLIMEPIRIDE 4 MG ORAL TABLET 1 tablet by mouth twice daily f or diabetes GLIMEPIRIDE 41322469991 Active Mitch Urbina DO Active GLIMEPIRIDE 2 MG ORAL TABLET 1 po BID GLIMEPI RIDE 70295632757 No Longer Active Mitch Urbina DO Active AMLODIPINE BESYLATE 5 MG ORAL TABLET 1 tablet by mouth daily AMLODIPINE BESYLATE 57248730553 Active Mitch Urbina DO Active PROVIGIL 200 MG ORAL TABLET 1/2 tab po q day MODA FINIL 21269655909 Active Renee Oconnor LPN Active FAMOTIDINE 20 MG ORAL TABLET by mouth twice a day 2017 FAMOTIDINE 88609761282 No Longer Active Mitch Urbina DO Active COLCRYS 0.6 MG ORAL TABLET 1 tab qid prn gout C OLCHICINE 10070211293 No Longer Active Mitch Urbina DO Active KEFLEX 500 MG ORAL CAPSULE 1 po qid CEPHALEXI N 57376148564 No Longer Active Mitch Urbina DO Active LOSARTAN POTASSIUM 100 MG ORAL TABLET 1 pill by mouth daily, for blood pressure LOSARTAN POTASSIUM 84965155332 Active Ana Ocampo Active AMLODIPINE BESYLATE 5 MG ORAL TABLET 1 tablet by mouth daily 201 01/20/04 AMLODIPINE BESYLATE 15278713118 No Longer Active Joe fulton APRN Active MITIGARE 0.6 MG ORAL CAPSULE 2 capsules at onset of go ut pain, then take one capsule at 1 hour if symptoms persist. COLCHICINE 59 074700378 Active Mitch Urbina Active COUMADIN 1 MG ORAL TABLET 2 tabs orally daily with the 5mg tab to equal 7mg daily WARFARIN SODIUM 94741684069 Active Renee Oconnor LPN Active INVOKANA 100 MG ORAL TABLET 1 tablet orally daily CANAGLIFLOZIN 65614015688 Active Renee Quirogamonserrat DE [place] ROS[place] Active MINOXIDIL 2.5 MG ORAL TABLET 1 tablet daily for high blood press ure MINOXIDIL 91968122796 Active Renee Oconnor NAPPER GRINDER Active MECLIZINE HCL 25 MG ORAL TABLET 1 po tid 3 days, then 1/2 ta b tid 3 days MECLIZINE HCL 55217794621 No Longer Active Corey SEGURA Active ALLOPURINOL 300 MG ORAL TABLET Take 1 tablet by mouth daily 2012 ALLOPURINOL 70397948003 No Longer Active Corey SEGURA Active CLONIDINE HCL 0.1 MG ORAL TABLET 1 po bid 7 days, then 1/2 t ab po bid 7 days CLONIDINE HCL 12500545515 No Longer Active Corey SEGURA Active COUMADIN 5 MG ORAL TABLET 1 tab PO daily WARFAR IN SODIUM 52475942628 Active Renee Elvin DE [place] Active COUMADIN 4 MG ORAL TABLET 1 tablet daily WARFAR IN SODIUM 00274883850 No Longer Active Corey SEGURA Active POLYTRIM 89639-2.1 UNIT/ML-% OPHTHALMIC SOLUTION 1 rui p in affected eye every 3 hours while awake x 7 days POLYMYXIN B-TRIMETHOP RIM 56913935612 No Longer Active Corey SEGURA Active LOSARTAN POTASSIUM-HCTZ 100-12.5 MG ORAL TABLET 1 by m outh daily for high blood pressure LOSARTAN POTASSIUM-HCTZ 99348001577 No Longer A ctive Mitch Urbina DO Active LISINOPRIL-HYDROCHLOROTHIAZIDE 20-12.5 MG ORAL TABLET 1 tab by m outh daily LISINOPRIL-HYDROCHLOROTHIAZIDE 53427076606 No Longer Active Mitch Urbina DO Active LISINOPRIL 20 MG ORAL TABLET 1 tab po at HS LIS INOPRIL 82896380285 No Longer Active Mitch Urbina DO Active COUMADIN 5 MG ORAL TABLET 1 by mouth every other day 2 WARFARIN SODIUM 09784154022 No Longer Active Mitch Urbina DO Active COUMADIN 6 MG ORAL TABLET 1 by mouth every other day 2 WARFARIN SODIUM 75226094142 No Longer Active Mitch Urbina DO Active SIMVASTATIN 40 MG ORAL TABLET 1 tab daily at bedtime SIMVASTATIN 25267340383 Active Mitch Urbina DO Active SIMVASTATIN 20 MG ORAL TABLET 1 tab daily at bedtime 2 SIMVASTATIN 58616965985 No Longer Active Mitch Urbina DO Active LOVENOX 100 MG/ML SUBCUTANEOUS SOLUTION One injection twice a da y ENOXAPARIN SODIUM 11313078029 No Longer Active Carmine Yusuf MD Active JANUVIA 50 MG ORAL TABLET Take one by mouth daily SITAGLIPTIN PHOSPHATE 21765869808 Active Renee Oconnoreder DE LA ROSA Active JANUVIA 100 MG ORAL TABLET 1/2 by mouth every day 2011 SITAGLIPTIN PHOSPHATE 06757781621 No Longer Active Bijal Segal RN Acti ve METFORMIN HCL 500 MG ORAL TABLET 2 by mouth twice daily METFORMIN HCL 28521547966 No Longer Active Renee Oconnor LPN Active COLCRYS 0.6 MG ORAL TABLET 1 po q 6 hours prn gout pain COLCHICINE 57528747528 No Longer Active Camila Reese Active LISINOPRIL 5 MG ORAL TABLET 1 by mouth every day 11/17 LISINOPRIL 75736742020 No Longer Active Nguyen Perez Active KLOR-CON 20 MEQ ORAL PACKET Take one by mouth daily 09/10/08 POTASSIUM CHLORIDE 16175418919 No Longer Active Nguyenmolly Perez Active FUROSEMIDE 40 MG ORAL TABLET 1 by mouth daily F UROSEMIDE 16012426158 No Longer Active Nguyen Ana Active PROVIGIL 100 MG ORAL TABLET Take one by mouth daily 08/20/04 MODAFINIL 94696718292 No Longer Active Mitch Urbina DO Active BACTRIM DS 800-160 MG ORAL TABLET 1 tab by mouth twice daily 201 10/19/09 TRIMETHOPRIM-SULFAMETHOXAZOLE 97484020909 No Longer Active Elian Hays MD Active ADULT ASPIRIN LOW STRENGTH 81 MG ORAL TABLET DISINTEGR ATING 1 by mouth every daily ASPIRIN 38834262967 Active Mitch Urbina DO Ac tive METOPROLOL TARTRATE 50 MG ORAL TABLET 1 by mouth twice daily METOPROLOL TARTRATE 83044809808 Active Anabella Ocampo Activ e BACTRIM DS 800-160 MG ORAL TABLET 1 tab by mouth twice daily 201 10/19/09 BACTRIM DS 800-160 MG ORAL TABLET 352407 TRIMETHOPRIM-SULFAMETHOXAZOLE Inactive PROVIGIL 100 MG ORAL TABLET Take one by mouth daily 08/20/04 PROVIGIL 100 MG ORAL TABLET 213022 MODAFINIL Inactive FUROSEMIDE 40 MG ORAL TABLET 1 by mouth daily FUROSEMIDE 40 MG ORAL TABLET 214789 FUROSEMIDE Inactive KLOR-CON 20 MEQ ORAL PACKET Take one by mouth daily 09/10/08 KLOR- CON 20 MEQ ORAL PACKET 0371231 POTASSIUM CHLORIDE Inactive LISINOPRIL 5 MG ORAL TABLET 1 by mouth every day 11/17 LISINOPRIL 5 MG ORAL TABLET 923588 LISINOPRIL Inactive COLCRYS 0.6 MG ORAL TABLET 1 po q 6 hours prn gout pain COLCRYS 0.6 MG ORAL TABLET 089347 COLCHICINE Inactive JANUVIA 100 MG ORAL TABLET 1/2 by mouth every day 2011 JANUVIA 100 MG ORAL TABLET SITAGLIPTIN PHOSPHATE Inactive SIMVASTATIN 20 MG ORAL TABLET 1 tab daily at bedtime 2 SIMVASTATIN 20 MG ORAL TABLET 742358 SIMVASTATIN Inactive COUMADIN 6 MG ORAL TABLET 1 by mouth every other day 2 COUMADIN 6 MG ORAL TABLET 935950 WARFARIN SODIUM Inactive COUMADIN 5 MG ORAL TABLET 1 by mouth every other day 2 COUMADIN 5 MG ORAL TABLET 109688 WARFARIN SODIUM Inactive LISINOPRIL 20 MG ORAL TABLET 1 tab po at HS LISINOPRIL 20 MG ORAL TABLET 579013 LISINOPRIL Inactive LISINOPRIL-HYDROCHLOROTHIAZIDE 20-12.5 MG ORAL TABLET 1 tab by m outh daily LISINOPRIL-HYDROCHLOROTHIAZIDE 20-12.5 MG ORAL TABLET 007959 LISINOPRIL-HYDROCHLOROTHIAZIDE Inactive POLYTRIM 69507-8.1 UNIT/ML-% OPHTHALMIC SOLUTION 1 rui p in affected eye every 3 hours while awake x 7 days POLYTRIM 1000 0-0.1 UNIT/ML-% OPHTHALMIC SOLUTION 063840 POLYMYXIN B-TRIMETHOPRIM Inactive COUMADIN 4 MG ORAL TABLET 1 tablet daily COUMADIN 4 MG ORAL TABLET 971492 WARFARIN SODIUM Inactive CLONIDINE HCL 0.1 MG ORAL TABLET 1 po bid 7 days, then 1/2 t ab po bid 7 days CLONIDINE HCL 0.1 MG ORAL TABLET 063643 CLONIDIN E HCL Inactive ALLOPURINOL 300 MG ORAL TABLET Take 1 tablet by mouth daily 2012 ALLOPURINOL 300 MG ORAL TABLET 009344 ALLOPURINOL I nactive MECLIZINE HCL 25 MG ORAL TABLET 1 po tid 3 days, then 1/2 ta b tid 3 days MECLIZINE HCL 25 MG ORAL TABLET 605213 MECLIZINE HCL Inactive AMLODIPINE BESYLATE 5 MG ORAL TABLET 1 tablet by mouth daily 201 01/20/04 AMLODIPINE BESYLATE 5 MG ORAL TABLET 664422 AMLODIPINE BESYLATE Inactive KEFLEX 500 MG ORAL CAPSULE 1 po qid K EFLEX 500 MG ORAL CAPSULE 958865 CEPHALEXIN Inactive COLCRYS 0.6 MG ORAL TABLET 1 tab qid prn gout COLCRYS 0.6 MG ORAL TABLET 515199 COLCHICINE Inactive FAMOTIDINE 20 MG ORAL TABLET by mouth twice a day 2017 FAMOTIDINE 20 MG ORAL TABLET 853037 FAMOTIDINE Inactive GLIMEPIRIDE 2 MG ORAL TABLET 1 po BID GLIMEPIRIDE 2 MG ORAL TABLET 785642 GLIMEPIRIDE Inactive LOVENOX 100 MG/ML SUBCUTANEOUS SOLUTION One injection twice a da y LOVENOX 100 MG/ML SUBCUTANEOUS SOLUTION 008427 ENOXAPAR IN SODIUM Inactive Vital Signs Date [...] 4.3-6.0 Encounters Code Encounter Date Provider Facility CPT-11499 [id number] Vst-Est Level IV 10:52:00 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 Stephy Urbina [facility] CPT-27807 Level 3 Est. Patient 18:25:53 CDT Mitch luis [facility] CPT-14424 Level 3 Est. Patient 19:43:34 CDT Mitch luis [facility] CPT-43247 Level 4 Est. Patient 09:30:18 CDT Mitch luis [facility] CPT-15839 Level 3 Est. Patient 15:10:14 CDT Joe kamara [facility] CPT-70722 Level 3 Est. Patient 15:03:46 CDT Joe kamara [facility] CPT-98918 Level 3 Est. Patient 14:21:06 CDT Mitch luis [facility] CPT-86423 Level 3 Est. Patient 14:52:06 CDT Joe kamara [facility] CPT-01271 Level 3 Est. Patient 09:34:30 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 Mitch luis [facility] CPT-89110 Level 3 Est. Patient 09:37:15 CDT Mitch luis [facility] CPT-02353 Level 3 Est. Patient 17:01:00 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 Mitch luis [facility] CPT-70742 Level 3 Est. Patient 13:53:19 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 Mitch luis [facility] CPT-65059 Level 3 Est. Patient 19:19:37 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 Mitch luis [facility] CPT-57844 Level 3 Est. Patient 13:25:53 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 Tavo toure MD [facility] CPT-98237 Level 3 Est. Patient 18:17:28 CDT Mitch Arnol luis [facility] CPT-26454 Level 3 Est. Patient 15:22:57 CDT Mitch Arnol luis [facility] CPT-18934 Level 3 Est. Patient 18:21:50 CDT Mitch luis [facility] CPT-13043 Level 3 Est. Patient 18:20:38 CDT Mitch Arnol luis [facility] CPT-15015 Level 3 Est. Patient 15:37:55 CDT Mitch luis [facility] CPT-52498 Level 2 Est. Patient 15:54:44 CDT Carmine benton MD [facility] CPT-75730 Level 3 Est. Patient 21:46:01 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 Mitch luis [facility] CPT-97453 Level 3 Est. Patient 22:15:50 CDT Mitch luis [facility] CPT-55186 Level 3 Est. Patient 10:48:15 CDT Mitch luis [facility] CPT-61064 Level 3 Est. Patient 23:20:57 CDT Tavo toure MD [facility] CPT-70659 Level 3 Est. Patient 16:26:13 CDT Mitch Castellano janelle [facility] Procedures Code Procedure Name Date Entry Date Standard Desc ription CPT-JTINJ Asp/Joint Injection 18:47:02 CDT CPT-77540 Venipuncture Draw Fee 09:26:17 CDT CPT-70805 PT/INR - LAB USE ONLY 13:32:49 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 CPT-30578 Venipuncture Draw Fee 13:32:49 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 CPT-06760 PT/INR - LAB USE ONLY 10:34:49 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 CPT-44614 Venipuncture Draw Fee 10:34:48 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 CPT-19127 PT/INR - LAB USE ONLY 09:22:03 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 CPT-56113 Venipuncture Draw Fee 09:22:02 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 CPT-09753 Hemoccult IFOBT - LAB USE ONLY 10:27:22 CDT CPT-30347 Venipuncture Draw Fee 08:27:08 CDT CPT-13172 Liver Profile - LAB USE ONLY 08:27:07 CDT 2 CPT-79514 Microalbumin - LAB USE ONLY 08:27:07 CDT 20 25/05/09 CPT-32150 PT/INR - LAB USE ONLY 08:27:07 CDT CPT-30617 HGBA1C - LAB USE ONLY 08:27:07 CDT CPT-55384 CBC - LAB USE ONLY 08:27:07 CDT CPT-25412 Venipuncture Draw Fee 11:09:14 CDT CPT-62632 Venipuncture Draw Fee 08:32:21 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 CPT-71722 Venipuncture Draw Fee 09:38:56 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 CPT-99974 No Charge Offi Visit 21:36:07 CDT 1 CPT-00782 Venipuncture Draw Fee 10:13:28 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
--- OUTSIDE RECORDS SUMMARY | 2020-01-18 11:51 | XMS REPORT | Clinical Summary ---
[...] Instructions Start Date Stop Date Generic Name [facility] Status Provider Patient Instruction GLIMEPIRIDE 4 MG ORAL TABLET 1 tablet by mouth twice daily f or diabetes GLIMEPIRIDE 07561471069 Active Mitch Urbina DO Active GLIMEPIRIDE 2 MG ORAL TABLET 1 po BID GLIMEPI RIDE 90492092389 No Longer Active Mitch Urbina DO Active AMLODIPINE BESYLATE 5 MG ORAL TABLET 1 tablet by mouth daily AMLODIPINE BESYLATE 73769393106 Active Mitch Urbina DO Active PROVIGIL 200 MG ORAL TABLET 1/2 tab po q day MODA FINIL 46588236096 Active Renee Oconnor LPN Active FAMOTIDINE 20 MG ORAL TABLET by mouth twice a day 2017 FAMOTIDINE 00997904255 No Longer Active Mitch Urbina DO Active COLCRYS 0.6 MG ORAL TABLET 1 tab qid prn gout C OLCHICINE 67630900281 No Longer Active Mitch Urbina DO Active KEFLEX 500 MG ORAL CAPSULE 1 po qid CEPHALEXI N 13925612993 No Longer Active Mitch Urbina DO Active LOSARTAN POTASSIUM 100 MG ORAL TABLET 1 pill by mouth daily, for blood pressure LOSARTAN POTASSIUM 74970172225 Active Ana Ocampo Active AMLODIPINE BESYLATE 5 MG ORAL TABLET 1 tablet by mouth daily 201 01/20/04 AMLODIPINE BESYLATE 07465350052 No Longer Active Joe fulton APRN Active MITIGARE 0.6 MG ORAL CAPSULE 2 capsules at onset of go ut pain, then take one capsule at 1 hour if symptoms persist. COLCHICINE 59 800440290 Active Mitch Urbina Active COUMADIN 1 MG ORAL TABLET 2 tabs orally daily with the 5mg tab to equal 7mg daily WARFARIN SODIUM 20870570220 Active Renee Oconnor LPN Active INVOKANA 100 MG ORAL TABLET 1 tablet orally daily CANAGLIFLOZIN 68981603657 Active Renee Quirogamonserrat [place] Active MINOXIDIL 2.5 MG ORAL TABLET 1 tablet daily for high blood press ure MINOXIDIL 76633628190 Active Renee Oconnor ENGINE TESTER Active MECLIZINE HCL 25 MG ORAL TABLET 1 po tid 3 days, then 1/2 ta b tid 3 days MECLIZINE HCL 20637332063 No Longer Active Corey SEGURA Active ALLOPURINOL 300 MG ORAL TABLET Take 1 tablet by mouth daily 2012 ALLOPURINOL 18188043789 No Longer Active Corey SEGURA Active CLONIDINE HCL 0.1 MG ORAL TABLET 1 po bid 7 days, then 1/2 t ab po bid 7 days CLONIDINE HCL 13994859460 No Longer Active Corey SEGURA Active COUMADIN 5 MG ORAL TABLET 1 tab PO daily WARFAR IN SODIUM 61067800552 Active Renee Elvin DE [place] Active COUMADIN 4 MG ORAL TABLET 1 tablet daily WARFAR IN SODIUM 54033716373 No Longer Active Corey SEGURA Active POLYTRIM 86358-9.1 UNIT/ML-% OPHTHALMIC SOLUTION 1 rui p in affected eye every 3 hours while awake x 7 days POLYMYXIN B-TRIMETHOP RIM 13126622934 No Longer Active Corey SEGURA Active LOSARTAN POTASSIUM-HCTZ 100-12.5 MG ORAL TABLET 1 by m outh daily for high blood pressure LOSARTAN POTASSIUM-HCTZ 01311832509 No Longer A ctive Mitch Urbina DO Active LISINOPRIL-HYDROCHLOROTHIAZIDE 20-12.5 MG ORAL TABLET 1 tab by m outh daily LISINOPRIL-HYDROCHLOROTHIAZIDE 94305524372 No Longer Active Mitch Urbina DO Active LISINOPRIL 20 MG ORAL TABLET 1 tab po at HS LIS INOPRIL 73008251155 No Longer Active Mitch Urbina DO Active COUMADIN 5 MG ORAL TABLET 1 by mouth every other day 2 WARFARIN SODIUM 60939068585 No Longer Active Mitch Urbina DO Active COUMADIN 6 MG ORAL TABLET 1 by mouth every other day 2 WARFARIN SODIUM 94783738109 No Longer Active Mitch Urbina DO Active SIMVASTATIN 40 MG ORAL TABLET 1 tab daily at bedtime SIMVASTATIN 64019349351 Active Mitch Urbina DO Active SIMVASTATIN 20 MG ORAL TABLET 1 tab daily at bedtime 2 SIMVASTATIN 72417854821 No Longer Active Mitch Urbina DO Active LOVENOX 100 MG/ML SUBCUTANEOUS SOLUTION One injection twice a da y ENOXAPARIN SODIUM 31725207933 No Longer Active Carmine Yusuf MD Active JANUVIA 50 MG ORAL TABLET Take one by mouth daily SITAGLIPTIN PHOSPHATE 70116926385 Active Renee Oconnoreder DE [place] ROS[place] Active JANUVIA 100 MG ORAL TABLET 1/2 by mouth every day 2011 SITAGLIPTIN PHOSPHATE 65929832332 No Longer Active Bijal Segal RN Acti ve METFORMIN HCL 500 MG ORAL TABLET 2 by mouth twice daily METFORMIN HCL 22139955119 No Longer Active Renee Oconnor LPN Active COLCRYS 0.6 MG ORAL TABLET 1 po q 6 hours prn gout pain COLCHICINE 77584838524 No Longer Active Camila Reese Active LISINOPRIL 5 MG ORAL TABLET 1 by mouth every day 11/17 LISINOPRIL 01725623900 No Longer Active Nguyen Perez Active KLOR-CON 20 MEQ ORAL PACKET Take one by mouth daily 09/10/08 POTASSIUM CHLORIDE 21885618501 No Longer Active Nguyenmolly Perez Active FUROSEMIDE 40 MG ORAL TABLET 1 by mouth daily F UROSEMIDE 58897933211 No Longer Active Nguyen Ana Active PROVIGIL 100 MG ORAL TABLET Take one by mouth daily 08/20/04 MODAFINIL 29887694950 No Longer Active Mitch Urbina DO Active BACTRIM DS 800-160 MG ORAL TABLET 1 tab by mouth twice daily 201 10/19/09 TRIMETHOPRIM-SULFAMETHOXAZOLE 83554185679 No Longer Active Elian Hays MD Active ADULT ASPIRIN LOW STRENGTH 81 MG ORAL TABLET DISINTEGR ATING 1 by mouth every daily ASPIRIN 55740554844 Active Mitch Urbina DO Ac tive METOPROLOL TARTRATE 50 MG ORAL TABLET 1 by mouth twice daily METOPROLOL TARTRATE 16707749009 Active Anabella Ocampo Activ e BACTRIM DS 800-160 MG ORAL TABLET 1 tab by mouth twice daily 201 10/19/09 BACTRIM DS 800-160 MG ORAL TABLET 612047 TRIMETHOPRIM-SULFAMETHOXAZOLE Inactive PROVIGIL 100 MG ORAL TABLET Take one by mouth daily 08/20/04 PROVIGIL 100 MG ORAL TABLET 141086 MODAFINIL Inactive FUROSEMIDE 40 MG ORAL TABLET 1 by mouth daily FUROSEMIDE 40 MG ORAL TABLET 060189 FUROSEMIDE Inactive KLOR-CON 20 MEQ ORAL PACKET Take one by mouth daily 09/10/08 KLOR- CON 20 MEQ ORAL PACKET 3556386 POTASSIUM CHLORIDE Inactive LISINOPRIL 5 MG ORAL TABLET 1 by mouth every day 11/17 LISINOPRIL 5 MG ORAL TABLET 109714 LISINOPRIL Inactive COLCRYS 0.6 MG ORAL TABLET 1 po q 6 hours prn gout pain COLCRYS 0.6 MG ORAL TABLET 304541 COLCHICINE Inactive JANUVIA 100 MG ORAL TABLET 1/2 by mouth every day 2011 JANUVIA 100 MG ORAL TABLET SITAGLIPTIN PHOSPHATE Inactive SIMVASTATIN 20 MG ORAL TABLET 1 tab daily at bedtime 2 SIMVASTATIN 20 MG ORAL TABLET 312813 SIMVASTATIN Inactive COUMADIN 6 MG ORAL TABLET 1 by mouth every other day 2 COUMADIN 6 MG ORAL TABLET 322828 WARFARIN SODIUM Inactive COUMADIN 5 MG ORAL TABLET 1 by mouth every other day 2 COUMADIN 5 MG ORAL TABLET 336448 WARFARIN SODIUM Inactive LISINOPRIL 20 MG ORAL TABLET 1 tab po at HS LISINOPRIL 20 MG ORAL TABLET 049314 LISINOPRIL Inactive LISINOPRIL-HYDROCHLOROTHIAZIDE 20-12.5 MG ORAL TABLET 1 tab by m outh daily LISINOPRIL-HYDROCHLOROTHIAZIDE 20-12.5 MG ORAL TABLET 007279 LISINOPRIL-HYDROCHLOROTHIAZIDE Inactive POLYTRIM 22409-3.1 UNIT/ML-% OPHTHALMIC SOLUTION 1 rui p in affected eye every 3 hours while awake x 7 days POLYTRIM 1000 0-0.1 UNIT/ML-% OPHTHALMIC SOLUTION 375594 POLYMYXIN B-TRIMETHOPRIM Inactive COUMADIN 4 MG ORAL TABLET 1 tablet daily COUMADIN 4 MG ORAL TABLET 407609 WARFARIN SODIUM Inactive CLONIDINE HCL 0.1 MG ORAL TABLET 1 po bid 7 days, then 1/2 t ab po bid 7 days CLONIDINE HCL 0.1 MG ORAL TABLET 266642 CLONIDIN E HCL Inactive ALLOPURINOL 300 MG ORAL TABLET Take 1 tablet by mouth daily 2012 ALLOPURINOL 300 MG ORAL TABLET 602139 ALLOPURINOL I nactive MECLIZINE HCL 25 MG ORAL TABLET 1 po tid 3 days, then 1/2 ta b tid 3 days MECLIZINE HCL 25 MG ORAL TABLET 590853 MECLIZINE HCL Inactive AMLODIPINE BESYLATE 5 MG ORAL TABLET 1 tablet by mouth daily 201 01/20/04 AMLODIPINE BESYLATE 5 MG ORAL TABLET 724184 AMLODIPINE BESYLATE Inactive KEFLEX 500 MG ORAL CAPSULE 1 po qid K EFLEX 500 MG ORAL CAPSULE 376272 CEPHALEXIN Inactive COLCRYS 0.6 MG ORAL TABLET 1 tab qid prn gout COLCRYS 0.6 MG ORAL TABLET 960836 COLCHICINE Inactive FAMOTIDINE 20 MG ORAL TABLET by mouth twice a day 2017 FAMOTIDINE 20 MG ORAL TABLET 771062 FAMOTIDINE Inactive GLIMEPIRIDE 2 MG ORAL TABLET 1 po BID GLIMEPIRIDE 2 MG ORAL TABLET 887726 GLIMEPIRIDE Inactive LOVENOX 100 MG/ML SUBCUTANEOUS SOLUTION One injection twice a da y LOVENOX 100 MG/ML SUBCUTANEOUS SOLUTION 653009 ENOXAPAR IN SODIUM Inactive Vital Signs Date [...] 4.3-6.0 Encounters Code Encounter Date Provider Facility CPT-98978 22878-Seh Vst-Est Level IV 10:52:00 JUDGE Stephy Urbina [facility] CPT-37477 Level 3 Est. Patient 18:25:53 CDT Mitch luis [facility] CPT-83569 Level 3 Est. Patient 19:43:34 CDT Mitch luis [facility] CPT-91574 Level 4 Est. Patient 09:30:18 CDT Mitch luis [facility] CPT-04432 Level 3 Est. Patient 15:10:14 CDT Joe kamara [facility] CPT-52605 Level 3 Est. Patient 15:03:46 CDT Joe kamara [facility] CPT-20145 Level 3 Est. Patient 14:21:06 CDT Mitch luis [facility] CPT-06524 Level 3 Est. Patient 14:52:06 CDT Joe kamara [facility] CPT-11607 Level 3 Est. Patient 09:34:30 JUDGE Mitch luis [facility] CPT-57713 Level 3 Est. Patient 09:37:15 CDT Mitch luis [facility] CPT-46323 Level 3 Est. Patient 17:01:00 JUDGE Mitch luis [facility] CPT-39430 Level 3 Est. Patient 13:53:19 JUDGE Mitch luis [facility] CPT-86707 Level 3 Est. Patient 19:19:37 JUDGE Mitch luis [facility] CPT-79876 Level 3 Est. Patient 13:25:53 JUDGE Tavo toure MD [facility] CPT-68602 Level 3 Est. Patient 18:17:28 CDT Mitch Arnol luis [facility] CPT-25834 Level 3 Est. Patient 15:22:57 CDT Mitch Arnol luis [facility] CPT-94480 Level 3 Est. Patient 18:21:50 CDT Mitch luis [facility] CPT-35773 Level 3 Est. Patient 18:20:38 CDT Mitch Arnol luis [facility] CPT-12877 Level 3 Est. Patient 15:37:55 CDT iMtch luis [facility] CPT-14061 Level 2 Est. Patient 15:54:44 CDT Carmine benton MD [facility] CPT-27561 Level 3 Est. Patient 21:46:01 JUDGE Mitch luis [facility] CPT-51197 Level 3 Est. Patient 22:15:50 CDT Mitch luis [facility] CPT-79476 Level 3 Est. Patient 10:48:15 CDT Mitch luis [facility] CPT-27426 Level 3 Est. Patient 23:20:57 CDT Tavo toure MD [facility] CPT-32458 Level 3 Est. Patient 16:26:13 CDT Mitch Castellano janelle [facility] Procedures Code Procedure Name Date Entry Date Standard Desc ription CPT-JTINJ Asp/Joint Injection 18:47:02 CDT CPT-81843 Venipuncture Draw Fee 09:26:17 CDT CPT-90905 PT/INR - LAB USE ONLY 13:32:49 JUDGE CPT-94813 Venipuncture Draw Fee 13:32:49 JUDGE CPT-05674 PT/INR - LAB USE ONLY 10:34:49 JUDGE CPT-85425 Venipuncture Draw Fee 10:34:48 JUDGE CPT-46313 PT/INR - LAB USE ONLY 09:22:03 JUDGE CPT-07736 Venipuncture Draw Fee 09:22:02 JUDGE CPT-89124 Hemoccult IFOBT - LAB USE ONLY 10:27:22 CDT CPT-36985 Venipuncture Draw Fee 08:27:08 CDT CPT-74084 Liver Profile - LAB USE ONLY 08:27:07 CDT 2 CPT-93394 Microalbumin - LAB USE ONLY 08:27:07 CDT 20 25/05/09 CPT-07032 PT/INR - LAB USE ONLY 08:27:07 CDT CPT-04111 HGBA1C - LAB USE ONLY 08:27:07 CDT CPT-89575 CBC - LAB USE ONLY 08:27:07 CDT CPT-02103 Venipuncture Draw Fee 11:09:14 CDT CPT-25391 Venipuncture Draw Fee 08:32:21 JUDGE CPT-35609 Venipuncture Draw Fee 09:38:56 JUDGE CPT-73793 No Charge Offi Visit 21:36:07 CDT 1 CPT-46801 Venipuncture Draw Fee 10:13:28 JUDGE CPT-28591 Venipuncture Draw Fee 08:31:11 CDT CPT-07029 Aspir/Inject Med Joint 18:17:28 CDT CPT-15543 Venipuncture Draw Fee 10:13:30 CDT CPT-76240 Venipuncture Draw Fee 08:31:43 JUDGE CPT-JTINJ Joint Injection 18:34:50 CDT CPT-06749 Knee 3V 12:25:09 CDT CPT-71885 Venipuncture Draw Fee 12:15:57 CDT CPT-060 Medical Surveillance Exam 21:31:43 CDT 2011 CPT-77935 Venipuncture Draw Fee 08:32:05 JUDGE CPT-OV Office Visit 18:19:06 CDT
--- OUTSIDE RECORDS SUMMARY | 2020-01-18 11:52 | XMS REPORT | Clinical Summary ---
Author Author Admin, Mitch Leon Organization [facility] Address Unknown Phone Unavailable Allergies, Adverse Reactions, [...] Coronary atherosclerosis of unspecified type of vessel, bad river band or graft EDEMA 782.3 Resolved Mitch Urbina [...] 782.3 Active Mitch W Carlitos DO Edema SEROMA ICD-998.13 Inactive Mitch Urbina DO REACTIVE HYPOGLYCEMIA ICD-251.2 Inactive Mitch Urbina DO LONG-TERM (CURRENT) USE OF ANTICOAGULANTS ICD-V58.61 Inactive Mitch Urbina DO EDEMA ICD-782.3 Inactive Mitch Urbina DO DIZZINESS ICD-780.4 Inactive Mitch Urbina DO 10/23 GOUT, RIGHT WRIST ICD-274.9 Inactive Mitch Ambrose Lenore e DO BRUISE ICD-924.9 Inactive Mitch Urbina DO OLECRANON BURSITIS, RIGHT ICD-726.33 Inactive Mitch Urbina DO UNSPECIFIED ANEMIA ICD-285.9 Inactive Mitch luis DO Malaise and fatigue ICD-780.79 Inactive Mitch Urbina DO Cough, chronic ICD-786.2 Inactive Mitch Arnol Carlitos D O Sebaceous cyst, infected ICD-706.2 Inactive Mitch Urbina DO Cellulitis ICD-682.9 Inactive Mitch Urbina DO 10/23 CELLULITIS, GROIN, LEFT ICD-682.2 Inactive Zoya Urbina DO Medication List Medication Instructions Start Date Stop Date Generic Name NDC Status Provider Patient Instruction GLIMEPIRIDE 2 MG ORAL TABLET 1 po BID GLIMEPIRID E 71878933687 Active Renee Oconnor LPN Active KEFLEX 500 MG ORAL CAPSULE 1 po qid CEPHALEXI N 88379634235 No Longer Active Mitch Urbina DO Active LOSARTAN POTASSIUM 100 MG ORAL TABLET 1 pill by mouth daily, for blood pressure LOSARTAN POTASSIUM 67316191970 Active Ana Wallace Active AMLODIPINE BESYLATE 5 MG ORAL TABLET 1 tablet by mouth daily 201 01/20/04 AMLODIPINE BESYLATE 03571060524 No Longer Active Joe fulton APRN Active MITIGARE 0.6 MG ORAL CAPSULE 2 capsules at onset of go ut pain, then take one capsule at 1 hour if symptoms persist. COLCHICINE 59 650607551 Active Mitch Urbina DO Active COUMADIN 1 MG ORAL TABLET 2 tabs orally daily with the 5mg tab to equal 7mg daily WARFARIN SODIUM 38256929470 Active Ana Wallace Active COLCRYS 0.6 MG ORAL TABLET 1 tab qid prn gout C OLCHICINE 28218905028 Active Norma Cazares Active INVOKANA 100 MG ORAL TABLET 1 tablet orally daily CANAGLIFLOZIN 81856767698 Active Mitch Urbina DO Active MINOXIDIL 2.5 MG ORAL TABLET 1 tablet daily for high blood press ure MINOXIDIL 55456251499 Active Mitch Urbina DO Active MECLIZINE HCL 25 MG ORAL TABLET 1 po tid 3 days, then 1/2 ta b tid 3 days MECLIZINE HCL 61829117002 No Longer Active Corey SEGURA Active ALLOPURINOL 300 MG ORAL TABLET Take 1 tablet by mouth daily 2012 ALLOPURINOL 13399787080 No Longer Active Corey SEGURA Active CLONIDINE HCL 0.1 MG ORAL TABLET 1 po bid 7 days, then 1/2 t ab po bid 7 days CLONIDINE HCL 15584865437 No Longer Active Corey SEGURA Active COUMADIN 5 MG ORAL TABLET 1 tab PO daily WARFAR IN SODIUM 04709545190 Active Mitch Urbina DO Active COUMADIN 4 MG ORAL TABLET 1 tablet daily WARFAR IN SODIUM 93576365558 No Longer Active Corey SEGURA Active POLYTRIM 62365-9.1 UNIT/ML-% OPHTHALMIC SOLUTION 1 rui p in affected eye every 3 hours while awake x 7 days POLYMYXIN B-TRIMETHOP RIM 31886597377 No Longer Active Corey SEGURA Active LOSARTAN POTASSIUM-HCTZ 100-12.5 MG ORAL TABLET 1 by m outh daily for high blood pressure LOSARTAN POTASSIUM-HCTZ 23188535937 No Longer A ctive Mitch Urbina DO Active LISINOPRIL-HYDROCHLOROTHIAZIDE 20-12.5 MG ORAL TABLET 1 tab by m outh daily LISINOPRIL-HYDROCHLOROTHIAZIDE 67853222520 No Longer Active Mitch Urbina DO Active LISINOPRIL 20 MG ORAL TABLET 1 tab po at HS LIS INOPRIL 23608112230 No Longer Active Mitch Urbina DO Active COUMADIN 5 MG ORAL TABLET 1 by mouth every other day 2 WARFARIN SODIUM 02192029518 No Longer Active Mitch Urbina DO Active COUMADIN 6 MG ORAL TABLET 1 by mouth every other day 2 WARFARIN SODIUM 17577605531 No Longer Active Mitch Urbina DO Active SIMVASTATIN 40 MG ORAL TABLET 1 tab daily at bedtime SIMVASTATIN 22452599434 Active Mitch Urbina DO Active SIMVASTATIN 20 MG ORAL TABLET 1 tab daily at bedtime 2 SIMVASTATIN 77036816710 No Longer Active Mitch Urbina DO Active LOVENOX 100 MG/ML SUBCUTANEOUS SOLUTION One injection twice a da y ENOXAPARIN SODIUM 93854792691 No Longer Active Carmine Yusuf MD Active JANUVIA 50 MG ORAL TABLET Take one by mouth daily SITAGLIPTIN PHOSPHATE 78756746715 Active Mitch Urbina DO Active JANUVIA 100 MG ORAL TABLET 1/2 by mouth every day 2011 SITAGLIPTIN PHOSPHATE 18372468657 No Longer Active Bijal Segal RN Acti ve METFORMIN HCL 500 MG ORAL TABLET 2 by mouth twice daily METFORMIN HCL 28210429876 Active Mitch Urbina DO Active COLCRYS 0.6 MG ORAL TABLET 1 po q 6 hours prn gout pain COLCHICINE 09288222745 No Longer Active Camila Reese Active LISINOPRIL 5 MG ORAL TABLET 1 by mouth every day 11/17 LISINOPRIL 32118157570 No Longer Active Nguyen Perez Active KLOR-CON 20 MEQ ORAL PACKET Take one by mouth daily 09/10/08 POTASSIUM CHLORIDE 79790130223 No Longer Active Nguyen Coekman Active FUROSEMIDE 40 MG ORAL TABLET 1 by mouth daily F UROSEMIDE 88848172310 No Longer Active Nguyen Perez Active PROVIGIL 200 MG ORAL TABLET 1/2 tab po q day MODA FINIL 54977405618 Active Mitch Urbina DO Active PROVIGIL 100 MG ORAL TABLET Take one by mouth daily 08/20/04 MODAFINIL 11175972144 No Longer Active Mitch Urbina DO Active BACTRIM DS 800-160 MG ORAL TABLET 1 tab by mouth twice daily 201 10/19/09 TRIMETHOPRIM-SULFAMETHOXAZOLE 31438850260 No Longer Active Elian Hays MD Active FAMOTIDINE 20 MG ORAL TABLET by mouth twice a day FAMOTIDINE 14877838861 Active Mitch Urbina DO Active ADULT ASPIRIN LOW STRENGTH 81 MG ORAL TABLET DISINTEGR ATING 1 by mouth every daily ASPIRIN 79187135336 Active Mitch Urbina DO Ac tive METOPROLOL TARTRATE 50 MG ORAL TABLET 1 by mouth twice daily METOPROLOL TARTRATE 44978802159 Active Mitch Urbina DO Active BACTRIM DS 800-160 MG ORAL TABLET 1 tab by mouth twice daily 201 10/19/09 BACTRIM DS 800-160 MG ORAL TABLET 296710 TRIMETHOPRIM-SULFAMETHOXAZOLE Inactive PROVIGIL 100 MG ORAL TABLET Take one by mouth daily 08/20/04 PROVIGIL 100 MG ORAL TABLET 820677 MODAFINIL Inactive FUROSEMIDE 40 MG ORAL TABLET 1 by mouth daily FUROSEMIDE 40 MG ORAL TABLET 331709 FUROSEMIDE Inactive KLOR-CON 20 MEQ ORAL PACKET Take one by mouth daily 09/10/08 KLOR- CON 20 MEQ ORAL PACKET 6079743 POTASSIUM CHLORIDE Inactive LISINOPRIL 5 MG ORAL TABLET 1 by mouth every day 11/17 LISINOPRIL 5 MG ORAL TABLET 652471 LISINOPRIL Inactive COLCRYS 0.6 MG ORAL TABLET 1 po q 6 hours prn gout pain COLCRYS 0.6 MG ORAL TABLET 441605 COLCHICINE Inactive JANUVIA 100 MG ORAL TABLET 1/2 by mouth every day 2011 JANUVIA 100 MG ORAL TABLET SITAGLIPTIN PHOSPHATE Inactive SIMVASTATIN 20 MG ORAL TABLET 1 tab daily at bedtime 2 SIMVASTATIN 20 MG ORAL TABLET 177335 SIMVASTATIN Inactive COUMADIN 6 MG ORAL TABLET 1 by mouth every other day 2 COUMADIN 6 MG ORAL TABLET 791052 WARFARIN SODIUM Inactive COUMADIN 5 MG ORAL TABLET 1 by mouth every other day 2 COUMADIN 5 MG ORAL TABLET 017783 WARFARIN SODIUM Inactive LISINOPRIL 20 MG ORAL TABLET 1 tab po at HS LISINOPRIL 20 MG ORAL TABLET 169824 LISINOPRIL Inactive LISINOPRIL-HYDROCHLOROTHIAZIDE 20-12.5 MG ORAL TABLET 1 tab by m outh daily LISINOPRIL-HYDROCHLOROTHIAZIDE 20-12.5 MG ORAL TABLET 973844 LISINOPRIL-HYDROCHLOROTHIAZIDE Inactive POLYTRIM 15455-9.1 UNIT/ML-% OPHTHALMIC SOLUTION 1 rui p in affected eye every 3 hours while awake x 7 days POLYTRIM 1000 0-0.1 UNIT/ML-% OPHTHALMIC SOLUTION 536033 POLYMYXIN B-TRIMETHOPRIM Inactive COUMADIN 4 MG ORAL TABLET 1 tablet daily COUMADIN 4 MG ORAL TABLET 447891 WARFARIN SODIUM Inactive CLONIDINE HCL 0.1 MG ORAL TABLET 1 po bid 7 days, then 1/2 t ab po bid 7 days CLONIDINE HCL 0.1 MG ORAL TABLET 656051 CLONIDIN E HCL Inactive ALLOPURINOL 300 MG ORAL TABLET Take 1 tablet by mouth daily 2012 ALLOPURINOL 300 MG ORAL TABLET 127223 ALLOPURINOL I nactive MECLIZINE HCL 25 MG ORAL TABLET 1 po tid 3 days, then 1/2 ta b tid 3 days MECLIZINE HCL 25 MG ORAL TABLET 331864 MECLIZINE HCL Inactive AMLODIPINE BESYLATE 5 MG ORAL TABLET 1 tablet by mouth daily 201 01/20/04 AMLODIPINE BESYLATE 5 MG ORAL TABLET 709757 AMLODIPINE BESYLATE Inactive KEFLEX 500 MG ORAL CAPSULE 1 po qid K EFLEX 500 MG ORAL CAPSULE 605870 CEPHALEXIN Inactive LOVENOX 100 MG/ML SUBCUTANEOUS SOLUTION One injection twice a da y LOVENOX 100 MG/ML SUBCUTANEOUS SOLUTION 856299 ENOXAPAR IN SODIUM Inactive Vital Signs Date [...] - Chem istry sodium, serum 139 mmol/L 586-356 7254/07/17 urea nitrogen, blood 29 mg/dL 7-18 creatinine, serum 1.24 mg/dL 0.60-1.30 potassium, serum 4.2 mmol/L 3.5-5.2 chloride, serum 102 mmol/L 98-107 carbon dioxide, venous blood 28.9 mmol/L 21.0-32 .0 blood glucose 211 mg/dL 65-110 calcium, serum 10.6 mg/dL 8.5-10.1 sodium, serum 141 mmol/L 548-614 5060/08/07 urea nitrogen, blood 26 mg/dL 7-18 creatinine, serum 1.15 mg/dL 0.60-1.30 potassium, serum 4.5 mmol/L 3.5-5.2 chloride, serum 102 mmol/L 98-107 carbon dioxide, venous blood 31.7 mmol/L 21.0-32 .0 blood glucose 117 mg/dL 65-110 calcium, serum 10.5 mg/dL 8.5-10.1 Lab Report: CBC, MICROALB/CREAT W/RATIO - Chemistry albumin/creatinine ratio, urine <30 mg/g Normal mg/g m g/g{creat} 0-29 Lab Report: CBC, MICROALB/CREAT W/RATIO - Hematology hematocrit, blood 43.9 % 40.0-54.0 mean corpuscular volume, RBC 86 fL 80-97 mean corpuscular hemoglobin, RBC 28.6 pg 27. 0-31.2 mean corpuscular hemoglobin concentration, RBC 33.2 G/DL % 31.8-35.4 red blood cell distribution width 14.9 % 11 .6-14.8 platelet count 216 10^3/MM^3 10*3/mm3 042-040 0694/06/12 hemoglobin, blood 14.6 g/dL 14.0-18.0 erythrocyte (RBC) count 5.10 10^6/MM^3 10*6/mm3 4.50-6.5 0 leukocyte count, blood 8.7 10^3/MM^3 10*3/mm3 4.6-10.2 Lab Report: CBC, MICROALB/CREAT W/RATIO - Lab microalbumin, urine 10 mg/L 0-19 Lab Report: Comp. Metabolic Panel, Thyro id Stimulating Hormone (L), Pros ... - Chemistry sodium, serum 144 mmol/L 904-766 4400/06/12 carbon dioxide, venous blood 26.6 mmol/L 21.0-32 [...] HGBA1C - Chemistry cholesterol, serum 136 mg/dL 108-775 7854/12/06 triglyceride, serum, fasting 247 mg/dL 30-200 HDL cholesterol, serum 41 mg/dL 32-60 LDL cholesterol, serum 46 mg/dL 0-130 aspartate aminotransferase (SGOT), serum 22 U/L 15-37 alanine aminotransferase (SGPT), serum 30 U/L 12-78 bilirubin, serum, total 0.80 mg/dL 0.00-1.00 hemoglobin A1C, blood, as % of total hemoglobin 6.4 % 4.3-6.0 Lab Report: Prothrombin Time - Coagulati on international normalized ratio (INR) 2.7 1.0-3.5 prothrombin time (patient) 21.3 SECS s 11.1-13.4 Encounters Code Encounter Date Provider Facility CPT-89950 Level 3 Est. Patient 18:25:53 CDT Mitch luis [facility] CPT-31930 Level 3 Est. Patient 19:43:34 CDT Mitch luis [facility] CPT-63618 Level 4 Est. Patient 09:30:18 CDT Mitch luis [facility] CPT-30303 Level 3 Est. Patient 15:10:14 CDT Joe kamara [facility] CPT-84715 Level 3 Est. Patient 15:03:46 CDT Joe kamara [facility] CPT-44148 Level 3 Est. Patient 14:21:06 CDT Mitch luis [facility] CPT-55681 Level 3 Est. Patient 14:52:06 CDT Joe kamara [facility] CPT-82935 Level 3 Est. Patient 09:34:30 COMPRESSOR STATION OPERATOR Mitch Castellano [facility] CPT-36420 Level 3 Est. Patient 09:37:15 CDT Mitch luis [facility] CPT-90565 Level 3 Est. Patient 17:01:00 COMPRESSOR STATION OPERATOR Mitch luis [facility] CPT-92332 Level 3 Est. Patient 13:53:19 COMPRESSOR STATION OPERATOR Mitch W oNna luis [facility] CPT-42809 Level 3 Est. Patient 19:19:37 COMPRESSOR STATION OPERATOR Mitch W L janelle [facility] CPT-94926 Level 3 Est. Patient 13:25:53 COMPRESSOR STATION OPERATOR Tavo toure MD [facility] CPT-84278 Level 3 Est. Patient 18:17:28 CDT Mitch W L janelle [facility] CPT-23245 Level 3 Est. Patient 15:22:57 CDT Mitch W L janelle [facility] CPT-10107 Level 3 Est. Patient 18:21:50 CDT Mitch W L janelle [facility] CPT-59364 Level 3 Est. Patient 18:20:38 CDT Mitch W L janelle [facility] CPT-09678 Level 3 Est. Patient 15:37:55 CDT Mitch luis [facility] CPT-86277 Level 2 Est. Patient 15:54:44 CDT Carmine benton MD [facility]-00702 Level 3 Est. Patient 21:46:01 COMPRESSOR STATION OPERATOR Mitch luis [facility] CPT-02669 Level 3 Est. Patient 22:15:50 CDT Mitch luis [facility] CPT-29886 Level 3 Est. Patient 10:48:15 CDT Mitch W L janelle [facility] CPT-86984 Level 3 Est. Patient 23:20:57 CDT Tavo toure MD [facility]-33836 Level 3 Est. Patient 16:26:13 CDT Mitch Ambrose L janelle [facility] Procedures Code Procedure Name Date Entry Date Standard Desc ription CPT-74068 Venipuncture Draw Fee 09:26:17 CDT CPT-24378 PT/INR - LAB USE ONLY 13:32:49 COMPRESSOR STATION OPERATOR CPT-16665 Venipuncture Draw Fee 13:32:49 COMPRESSOR STATION OPERATOR CPT-31336 PT/INR - LAB USE ONLY 10:34:49 COMPRESSOR STATION OPERATOR CPT-49448 Venipuncture Draw Fee 10:34:48 COMPRESSOR STATION OPERATOR CPT-66246 PT/INR - LAB USE ONLY 09:22:03 COMPRESSOR STATION OPERATOR CPT-59092 Venipuncture Draw Fee 09:22:02 COMPRESSOR STATION OPERATOR CPT-75061 Hemoccult IFOBT - LAB USE ONLY 10:27:22 CDT CPT-77223 Venipuncture Draw Fee 08:27:08 CDT CPT-66318 Liver Profile - LAB USE ONLY 08:27:07 CDT 2 CPT-33948 Microalbumin - LAB USE ONLY 08:27:07 CDT 20 25/05/09 CPT-33839 PT/INR - LAB USE ONLY 08:27:07 CDT CPT-18685 HGBA1C - LAB USE ONLY 08:27:07 CDT CPT-28101 CBC - LAB USE ONLY 08:27:07 CDT CPT-72988 Venipuncture Draw Fee 11:09:14 CDT CPT-03947 Venipuncture Draw Fee 08:32:21 COMPRESSOR STATION OPERATOR CPT-51871 Venipuncture Draw Fee 09:38:56 COMPRESSOR STATION OPERATOR CPT-44796 No Charge Offi Visit 21:36:07 CDT 1 CPT-20475 Venipuncture Draw Fee 10:13:28 COMPRESSOR STATION OPERATOR CPT-05956 Venipuncture Draw Fee 08:31:11 CDT CPT-02480 Aspir/Inject Med Joint 18:17:28 CDT CPT-03720 Venipuncture Draw Fee 10:13:30 CDT CPT-08737 Venipuncture Draw Fee 08:31:43 COMPRESSOR STATION OPERATOR CPT-JTINJ Joint Injection 18:34:50 CDT CPT-52511 Knee 3V 12:25:09 CDT CPT-82979 Venipuncture Draw Fee 12:15:57 CDT CPT-060 Medical Surveillance Exam 21:31:43 CDT 2011 CPT-55472 Venipuncture Draw Fee 08:32:05 COMPRESSOR STATION OPERATOR CPT-OV Office Visit 18:19:06 CDT
--- OUTSIDE RECORDS SUMMARY | 2020-01-18 11:52 | XMS REPORT | Clinical Summary ---
Author Author Admin, Mitch Leon Organization [facility] Address Unknown Phone Unavailable Allergies, Adverse [...] Coronary atherosclerosis of unspecified type of vessel, [place] or graft EDEMA 782.3 Resolved Mitch Urbina [...] Urbina DO SEROMA ICD-998.13 Inactive Mitch Arnol Carlitos VELASQUEZ REACTIVE HYPOGLYCEMIA ICD-251.2 Inactive Mitch Arnol Carlitos VELASQUEZ LONG-TERM (CURRENT) USE OF ANTICOAGULANTS ICD-V58.61 Inactive [...] tab to equal 7mg daily WARFARIN SODIUM 27030879515 Active Kathie Juan RPT,R MA Active COLCRYS 0.6 MG TABS 1 tab qid prn gout COLCHICINE 46361331562 Active Kathie Juan RPT,RMA Active INVOKANA 100 MG ORAL TABS 1 tablet orally daily CANAGLIFLOZIN 81231647378 Active Kathie Juan RPT,RMA Active MINOXIDIL 2.5 MG TABS 1 tablet daily for high blood pressure 10/23 MINOXIDIL 50549281555 Active Mitch Arnol Carlitos VELASQUEZ Active AMLODIPINE BESYLATE 5 MG TABS 1 tablet by mouth daily AMLODIPINE BESYLATE 20115385125 Active Domi Rivera MA Active MECLIZINE HCL 25 MG TAB 1 po tid 3 days, then 1/2 tab tid 3 days MECLIZINE HCL 48219442217 No Longer Active Corey SEGURA Active ALLOPURINOL 300 MG TABS Take 1 tablet by mouth daily 2 ALLOPURINOL 52246383661 No Longer Active Corey SEGURA Activ e CLONIDINE HCL 0.1 MG TABS 1 po bid 7 days, then 1/2 tab po b id 7 days CLONIDINE HCL 88141845914 No Longer Active Corey SEGURA Active COUMADIN 5 MG TABS 1 tab PO daily WARFARIN SODIUM 01756702680 Active Domi Rivera MA Active COUMADIN 4 MG TABS 1 tablet daily WARFARIN SODI UM 73070684804 No Longer Active Corey SEGURA Active POLYTRIM 20834-8.1 UNIT/ML-% SOLN 1 drop in affected e ye every 3 hours while awake x 7 days POLYMYXIN B-TRIMETHOPRIM 06448019541 N o Longer Active Corey SEGURA Active LOSARTAN POTASSIUM-HCTZ 100-12.5 MG TABS 1 by mouth da [place] for high blood pressure LOSARTAN POTASSIUM-HCTZ 17487148243 Active Domi Rivera MA Active LISINOPRIL-HYDROCHLOROTHIAZIDE 20-12.5 MG TABS 1 tab by mouth da rocky LISINOPRIL-HYDROCHLOROTHIAZIDE 42359196059 No Longer Active Mitch luis DO Active LISINOPRIL 20 MG TABS 1 tab po at HS LISINOPRIL 05135770719 No Longer Active Mitch Urbina DO Active COUMADIN 5 MG TABS 1 by mouth every other day WARFARIN SODIUM 56277791793 No Longer Active Mitch Urbina DO Active COUMADIN 6 MG TABS 1 by mouth every other day WARFARIN SODIUM 54512654328 No Longer Active Mitch Urbina DO Active SIMVASTATIN 40 MG TABS 1 tab daily at bedtime S IMVASTATIN 17279741374 Active Domi Rivera MA Active SIMVASTATIN 20 MG TABS 1 tab daily at bedtime S IMVASTATIN 00474031883 No Longer Active Mitch Urbina DO Active LOVENOX 100 MG/ML SC SOLN One injection twice a day 09/15/15 ENOXAPARIN SODIUM 29471655963 No Longer Active Carmine Yusuf MD A ctive JANUVIA 50 MG TABS Take one by mouth daily DIEGO GLIPTIN PHOSPHATE 67653811483 Active Tavo Hilton MD Active JANUVIA 100 MG TABS 1/2 by mouth every day DIEGO GLIPTIN PHOSPHATE 80327171585 No Longer Active Bijal Segal RN Active METFORMIN HCL 500 MG TABS 2 by mouth twice daily METFORMIN HCL 29125990248 Active Mitch Urbina DO Active GLIMEPIRIDE 4 MG TABS 1 tab po bid GLIMEPIRIDE 109949 71059 Active Mitch Urbina DO Active COLCRYS 0.6 MG TABS 1 po q 6 hours prn gout pain 03/02 COLCHICINE 87004830335 No Longer Active Camila Reese Active LISINOPRIL 5 MG TABS 1 by mouth every day LISIN OPRIL 48398985339 No Longer Active Nguyen Perez Active KLOR-CON 20 MEQ PACK Take one by mouth daily 8 POTASSIUM CHLORIDE 16744367522 No Longer Active Nguyen Perez Active FUROSEMIDE 40 MG TABS 1 by mouth daily FUROSEMI DE 11186954606 No Longer Active Nguyenmolly Perez Active PROVIGIL 200 MG TABS 1/2 tab po q day MODAFINIL 48481 468402 Active Curly Coker MD Active PROVIGIL 100 MG TABS Take one by mouth daily MO DAFINIL 03192783910 No Longer Active Mitch Urbina DO Active BACTRIM DS 800-160 MG TAB 1 tab by mouth twice daily 2 TRIMETHOPRIM-SULFAMETHOXAZOLE 02326210717 No Longer Active Renan Hays MD Active FAMOTIDINE 20 MG TABS by mouth twice a day FAMOTI DINE 16442908170 Active Mitch Urbina DO Active ADULT ASPIRIN LOW STRENGTH 81 MG TBDP 1 by mouth every daily ASPIRIN 02012725461 Active Mitch Urbina DO Active METOPROLOL TARTRATE 50 MG TABS 1 by mouth twice daily METOPROLOL TARTRATE 25830078745 Active Domi Rivera MA Active BACTRIM DS 800-160 MG TAB 1 tab by mouth twice daily 2 BACTRIM DS 800-160 MG TAB 891273 TRIMETHOPRIM-SULFAMETHOXAZOLE Inac tive PROVIGIL 100 MG TABS Take one by mouth daily 4 PROVIGIL 100 MG TABS 374560 MODAFINIL Inactive FUROSEMIDE 40 MG TABS 1 by mouth daily FU ROSEMIDE 40 MG TABS 490855 FUROSEMIDE Inactive KLOR-CON 20 MEQ PACK Take one by mouth daily 8 KLOR-CON 20 MEQ PACK 869916 POTASSIUM CHLORIDE Inactive LISINOPRIL 5 MG TABS 1 by mouth every day LISINOPRIL 5 MG TABS 572809 LISINOPRIL Inactive COLCRYS 0.6 MG TABS 1 po q 6 hours prn gout pain 03/02 COLCRYS 0.6 MG TABS 176228 COLCHICINE Inactive JANUVIA 100 MG TABS 1/2 by mouth every day JANUVI A 100 MG TABS SITAGLIPTIN PHOSPHATE Inactive SIMVASTATIN 20 MG TABS 1 tab daily at bedtime SIMVASTATIN 20 MG TABS 866619 SIMVASTATIN Inactive COUMADIN 6 MG TABS 1 by mouth every other day COUMADIN 6 MG TABS 567329 WARFARIN SODIUM Inactive COUMADIN 5 MG TABS 1 by mouth every other day COUMADIN 5 MG TABS 385363 WARFARIN SODIUM Inactive LISINOPRIL 20 MG TABS 1 tab po at HS KOKI NOPRIL 20 MG TABS 030458 LISINOPRIL Inactive LISINOPRIL-HYDROCHLOROTHIAZIDE 20-12.5 MG TABS 1 tab by mouth da rocky LISINOPRIL-HYDROCHLOROTHIAZIDE 20-12.5 MG TABS 798038 LISINOPRIL-HYDROCHLOROTHIAZIDE Inactive POLYTRIM 58777-5.1 UNIT/ML-% SOLN 1 drop in affected e ye every 3 hours while awake x 7 days POLYTRIM 11313-4.1 UNIT/ML-% SOLN 04931 7 POLYMYXIN B-TRIMETHOPRIM Inactive COUMADIN 4 MG TABS 1 tablet daily COUMADIN 4 MG TABS 442107 WARFARIN SODIUM Inactive CLONIDINE HCL 0.1 MG TABS 1 po bid 7 days, then 1/2 tab po b id 7 days CLONIDINE HCL 0.1 MG TABS 168356 CLONIDINE HCL I nactive ALLOPURINOL 300 MG TABS Take 1 tablet by mouth daily 2 ALLOPURINOL 300 MG TABS 793019 ALLOPURINOL Inactive MECLIZINE HCL 25 MG TAB 1 po tid 3 days, then 1/2 tab tid 3 days MECLIZINE HCL 25 MG TAB 919242 MECLIZINE HCL Inactive LOVENOX 100 MG/ML SC SOLN One injection twice a day 20 09/15/15 LOVENOX 100 MG/ML SC SOLN 946004 ENOXAPARIN SODIUM Inactive Vital Signs Date Name [...] Value Unit Range Description Lab Report: CBC - Hematology leukocyte count, [...] - Chem istry sodium, serum 136 mmol/L 519-440 7921/01/14 carbon dioxide, venous blood 25.4 mmol/L 21.0-32 [...] CBC - Chemistry cholesterol, serum 136 mg/dL 165-039 2358/08/09 triglyceride, serum, fasting 187 mg/dL 30-200 HDL [...] 1.0-3.5 Encounters Code Encounter Date Provider Facility CPT-21560 Level 3 Est. Patient 09:34:30 TYPEWRITER REPAIRER Mitch luis [facility] CPT-06500 Level 3 Est. Patient 09:37:15 CDT Mitch luis [facility] CPT-26273 Level 3 Est. Patient 17:01:00 TYPEWRITER REPAIRER Mitch W L ee [facility] CPT-88440 Level 3 Est. Patient 13:53:19 TYPEWRITER REPAIRER Mitch luis [facility] CPT-77012 Level 3 Est. Patient 19:19:37 TYPEWRITER REPAIRER Mitch luis [facility] CPT-18083 Level 3 Est. Patient 13:25:53 TYPEWRITER REPAIRER Tavo toure MD [facility] CPT-05047 Level 3 Est. Patient 18:17:28 CDT Mitch luis [facility] CPT-65092 Level 3 Est. Patient 15:22:57 CDT Mitch luis [facility] CPT-17613 Level 3 Est. Patient 18:21:50 CDT Mitch luis [facility] CPT-99595 Level 3 Est. Patient 18:20:38 CDT Mitch luis [facility] CPT-28059 Level 3 Est. Patient 15:37:55 CDT Mitch lius [facility] CPT-78532 Level 2 Est. Patient 15:54:44 CDT Carmine benton MD [facility] CPT-14858 Level 3 Est. Patient 21:46:01 TYPEWRITER REPAIRER Mitch luis [facility] CPT-41176 Level 3 Est. Patient 22:15:50 CDT Mitch luis [facility] CPT-38318 Level 3 Est. Patient 10:48:15 CDT Mitch luis [facility] CPT-69354 Level 3 Est. Patient 23:20:57 CDT Tavo toure MD [facility] CPT-78354 Level 3 Est. Patient 16:26:13 CDT Mitch Arnol luis [facility] Procedures Code Procedure Name Date Entry Date Standard Desc ription CPT-02137 Hemoccult IFOBT - LAB USE ONLY 10:27:22 CDT CPT-60982 Venipuncture Draw Fee 08:27:08 CDT CPT-46022 Liver Profile - LAB USE ONLY 08:27:07 CDT 2 CPT-53047 Microalbumin - LAB USE ONLY 08:27:07 CDT 20 25/05/09 CPT-25594 PT/INR - LAB USE ONLY 08:27:07 CDT CPT-99203 HGBA1C - LAB USE ONLY 08:27:07 CDT CPT-36168 CBC - LAB USE ONLY 08:27:07 CDT CPT-55877 Venipuncture Draw Fee 11:09:14 CDT CPT-24920 Venipuncture Draw Fee 08:32:21 TYPEWRITER REPAIRER CPT-44475 Venipuncture Draw Fee 09:38:56 TYPEWRITER REPAIRER CPT-33408 No Charge Offi Visit 21:36:07 CDT 1 CPT-79841 Venipuncture Draw Fee 10:13:28 TYPEWRITER REPAIRER CPT-64949 Venipuncture Draw Fee 08:31:11 CDT CPT-43694 Aspir/Inject Med Joint 18:17:28 CDT CPT-46119 Venipuncture Draw Fee 10:13:30 CDT CPT-90994 Venipuncture Draw Fee 08:31:43 TYPEWRITER REPAIRER CPT-JTINJ Joint Injection 18:34:50 CDT CPT-44931 Knee 3V 12:25:09 CDT CPT-34142 Venipuncture Draw Fee 12:15:57 CDT CPT-060 Medical Surveillance Exam 21:31:43 CDT 2011 CPT-75056 Venipuncture Draw Fee 08:32:05 TYPEWRITER REPAIRER CPT-OV Office Visit 18:19:06 CDT
--- OUTSIDE RECORDS SUMMARY | 2020-01-18 11:52 | XMS REPORT | Clinical Summary ---
Author Author Admin, Mitch Leon Organization [facility] Address Unknown Phone Unavailable Allergies, [...] Coronary atherosclerosis of unspecified type of vessel, [place] or graft EDEMA 782.3 Resolved Mitch Urbina [...] TAKE 1 TABLET DAILY SITAGLIPT IN PHOSPHATE 89944281720 Active Maria Rivas RN Active INVOKANA TABS 100MG TAKE 1 TABLET DAILY CANAGLIFL OZIN 39421035148 Active Maria Rivas RN Active AMLODIPINE BESYLATE 5 MG ORAL TABLET 1 tablet by mouth daily 201 05/19/02 AMLODIPINE BESYLATE 86327944714 No Longer Active Maria Briones Active WARFARIN TABS 1MG TAKE 2 TABLETS (2 MG) DAILY WITH THE 5 MG TABLET TO EQUAL 7 MG DAILY WARFARIN SODIUM 22537614597 Active Maria Briones Active WARFARIN SODIUM 5 MG TABS TAKE 1 TABLET DAILY W ARFARIN SODIUM 82138966086 Active Allison Anthony APRN-C Active KEFLEX 500 MG ORAL CAPSULE 1 capsule by mouth three times da rocky x10 days CEPHALEXIN 01781592792 No Longer Active Maira landaverde RN Active METOPROLOL TARTRATE TABS 50MG TAKE 1 TABLET TWICE A DAY ([facility]) METOPROLOL TARTRATE 17780924271 Active Maria Briones Active DOXAZOSIN MESYLATE 2 MG ORAL TABLET 1 po q day for pr ostate and blood pressure DOXAZOSIN MESYLATE 32457289685 Active Mitch Urbina DO Active LOSARTAN TABS 100MG TAKE 1 TABLET DAILY FOR BLOOD PRESSURE LOSARTAN POTASSIUM 96574317081 Active Maria Rivas RN Active FLUTICASONE PROPIONATE 50 MCG/ACT NASAL SUSPENSION 1 s pray each nostril twice daily for 1 week, then once daily FLUTICASONE VT OPIONATE 33802217505 Active Becky Sell [employer] Active PREDNISONE 20 MG ORAL TABLET 2 tabs daily for 3 days 1 tab d aily for 3 days PREDNISONE 04030336887 No Longer Active Becky Sell [employer] Active MINOXIDIL 2.5 MG ORAL TABLET 1 tablet twice daily for high b lood pressure MINOXIDIL 93313362644 Active Mitch Urbina DO Ac tive METFORMIN HCL ER 500 MG ORAL TABLET EXTENDED RELEASE 2 4 HOUR 2 tablets by mouth twice daily METFORMIN HCL 11797244161 Active Mitch Urbina DO Active GLIMEPIRIDE 4 MG ORAL TABLET 1 tablet by mouth twice daily f or diabetes GLIMEPIRIDE 83246950026 Active Mitch Urbina DO Active GLIMEPIRIDE 2 MG ORAL TABLET 1 po BID GLIMEPI RIDE 08642299501 No Longer Active Mitch Urbina DO Active PROVIGIL 200 MG ORAL TABLET 1/2 tab po q day MODA FINIL 86006140485 Active Maria Rivas RN Active FAMOTIDINE 20 MG ORAL TABLET by mouth twice a day 2017 FAMOTIDINE 09862920742 No Longer Active Mitch Urbina DO Active COLCRYS 0.6 MG ORAL TABLET 1 tab qid prn gout C OLCHICINE 15382227022 No Longer Active Mitch Urbina DO Active KEFLEX 500 MG ORAL CAPSULE 1 po qid CEPHALEXI N 74403700140 No Longer Active Mitch Urbina DO Active AMLODIPINE BESYLATE 5 MG ORAL TABLET 1 tablet by mouth daily 201 01/20/04 AMLODIPINE BESYLATE 28486506998 No Longer Active Joe fulton APRN Active MITIGARE 0.6 MG ORAL CAPSULE 2 capsules at onset of go ut pain, then take one capsule at 1 hour if symptoms persist. COLCHICINE 59 794217990 Active Mitch Urbina DO Active MECLIZINE HCL 25 MG ORAL TABLET 1 po tid 3 days, then 1/2 ta b tid 3 days MECLIZINE HCL 27379427052 No Longer Active Corey SEGURA Active ALLOPURINOL 300 MG ORAL TABLET Take 1 tablet by mouth daily 2012 ALLOPURINOL 15402025586 No Longer Active Corey SEGURA Active CLONIDINE HCL 0.1 MG ORAL TABLET 1 po bid 7 days, then 1/2 t ab po bid 7 days CLONIDINE HCL 25093783686 No Longer Active Corey SEGURA Active COUMADIN 4 MG ORAL TABLET 1 tablet daily WARFAR IN SODIUM 75480934071 No Longer Active Corey SEGURA Active POLYTRIM 25752-5.1 UNIT/ML-% OPHTHALMIC SOLUTION 1 rui p in affected eye every 3 hours while awake x 7 days POLYMYXIN B-TRIMETHOP RIM 45480609564 No Longer Active Corey SEGURA Active LOSARTAN POTASSIUM-HCTZ 100-12.5 MG ORAL TABLET 1 by m outh daily for high blood pressure LOSARTAN POTASSIUM-HCTZ 07624647397 No Longer A ctive Mitch Urbina DO Active LISINOPRIL-HYDROCHLOROTHIAZIDE 20-12.5 MG ORAL TABLET 1 tab by m outh daily LISINOPRIL-HYDROCHLOROTHIAZIDE 91843864638 No Longer Active Mitch Urbina DO Active LISINOPRIL 20 MG ORAL TABLET 1 tab po at HS LIS INOPRIL 71970059760 No Longer Active Mitch Urbina DO Active COUMADIN 5 MG ORAL TABLET 1 by mouth every other day 2 WARFARIN SODIUM 72153518929 No Longer Active Mitch Urbina DO Active COUMADIN 6 MG ORAL TABLET 1 by mouth every other day 2 WARFARIN SODIUM 21596924902 No Longer Active Mitch Urbina DO Active SIMVASTATIN 40 MG ORAL TABLET 1 tab daily at bedtime SIMVASTATIN 52383646772 Active Maria Rivas RN Active SIMVASTATIN 20 MG ORAL TABLET 1 tab daily at bedtime 2 SIMVASTATIN 12231131383 No Longer Active Mitch Urbina DO Active LOVENOX 100 MG/ML SUBCUTANEOUS SOLUTION One injection twice a da y ENOXAPARIN SODIUM 75227642239 No Longer Active Carmine Yusuf MD Active JANUVIA 100 MG ORAL TABLET 1/2 by mouth every day 2011 SITAGLIPTIN PHOSPHATE 28132169966 No Longer Active Bijal Segal RN Acti ve METFORMIN HCL 500 MG ORAL TABLET 2 by mouth twice daily METFORMIN HCL 60012738083 No Longer Active Renee Oconnor [employer] [place] Active COLCRYS 0.6 MG ORAL TABLET 1 po q 6 hours prn gout pain COLCHICINE 81273480573 No Longer Active Camila Reese Active LISINOPRIL 5 MG ORAL TABLET 1 by mouth every day 11/17 LISINOPRIL 70585174992 No Longer Active Nguyen Perez Active KLOR-CON 20 MEQ ORAL PACKET Take one by mouth daily 20 09/10/08 POTASSIUM CHLORIDE 10189452343 No Longer Active Nguyen Perez Active FUROSEMIDE 40 MG ORAL TABLET 1 by mouth daily F UROSEMIDE 70527891213 No Longer Active Nguyen Perez Active PROVIGIL 100 MG ORAL TABLET Take one by mouth daily 20 08/20/04 MODAFINIL 71962852571 No Longer Active Mitch Urbina DO Active BACTRIM DS 800-160 MG ORAL TABLET 1 tab by mouth twice daily 201 10/19/09 TRIMETHOPRIM-SULFAMETHOXAZOLE 52889696562 No Longer Active C alberto Hays MD Active ADULT ASPIRIN LOW STRENGTH 81 MG ORAL TABLET DISINTEGR ATING 1 by mouth every daily ASPIRIN 37725759861 Active Mitch Urbina DO Ac tive BACTRIM DS 800-160 MG ORAL TABLET 1 tab by mouth twice daily 201 10/19/09 BACTRIM DS 800-160 MG ORAL TABLET 504428 TRIMETHOPRIM-SULFAMETHOXAZOLE Inactive PROVIGIL 100 MG ORAL TABLET Take one by mouth daily 08/20/04 PROVIGIL 100 MG ORAL TABLET 646922 MODAFINIL Inactive FUROSEMIDE 40 MG ORAL TABLET 1 by mouth daily FUROSEMIDE 40 MG ORAL TABLET 571845 FUROSEMIDE Inactive KLOR-CON 20 MEQ ORAL PACKET Take one by mouth daily 09/10/08 KLOR- CON 20 MEQ ORAL PACKET 2780971 POTASSIUM CHLORIDE Inactive LISINOPRIL 5 MG ORAL TABLET 1 by mouth every day 11/17 LISINOPRIL 5 MG ORAL TABLET 298632 LISINOPRIL Inactive COLCRYS 0.6 MG ORAL TABLET 1 po q 6 hours prn gout pain COLCRYS 0.6 MG ORAL TABLET 062807 COLCHICINE Inactive JANUVIA 100 MG ORAL TABLET 1/2 by mouth every day 2011 JANUVIA 100 MG ORAL TABLET SITAGLIPTIN PHOSPHATE Inactive SIMVASTATIN 20 MG ORAL TABLET 1 tab daily at bedtime 2 SIMVASTATIN 20 MG ORAL TABLET 336021 SIMVASTATIN Inactive COUMADIN 6 MG ORAL TABLET 1 by mouth every other day 2 COUMADIN 6 MG ORAL TABLET 302265 WARFARIN SODIUM Inactive COUMADIN 5 MG ORAL TABLET 1 by mouth every other day 2 COUMADIN 5 MG ORAL TABLET 933162 WARFARIN SODIUM Inactive LISINOPRIL 20 MG ORAL TABLET 1 tab po at HS LISINOPRIL 20 MG ORAL TABLET 797698 LISINOPRIL Inactive LISINOPRIL-HYDROCHLOROTHIAZIDE 20-12.5 MG ORAL TABLET 1 tab by m outh daily LISINOPRIL-HYDROCHLOROTHIAZIDE 20-12.5 MG ORAL TABLET 740424 LISINOPRIL-HYDROCHLOROTHIAZIDE Inactive POLYTRIM 05959-9.1 UNIT/ML-% OPHTHALMIC SOLUTION 1 rui p in affected eye every 3 hours while awake x 7 days POLYTRIM 1000 0-0.1 UNIT/ML-% OPHTHALMIC SOLUTION 090302 POLYMYXIN B-TRIMETHOPRIM Inactive COUMADIN 4 MG ORAL TABLET 1 tablet daily COUMADIN 4 MG ORAL TABLET 490238 WARFARIN SODIUM Inactive CLONIDINE HCL 0.1 MG ORAL TABLET 1 po bid 7 days, then 1/2 t ab po bid 7 days CLONIDINE HCL 0.1 MG ORAL TABLET 203359 CLONIDIN E HCL Inactive ALLOPURINOL 300 MG ORAL TABLET Take 1 tablet by mouth daily 2012 ALLOPURINOL 300 MG ORAL TABLET 374136 ALLOPURINOL I nactive MECLIZINE HCL 25 MG ORAL TABLET 1 po tid 3 days, then 1/2 ta b tid 3 days MECLIZINE HCL 25 MG ORAL TABLET 798402 MECLIZINE HCL Inactive AMLODIPINE BESYLATE 5 MG ORAL TABLET 1 tablet by mouth daily 201 01/20/04 AMLODIPINE BESYLATE 5 MG ORAL TABLET 132472 AMLODIPINE BESYLATE Inactive KEFLEX 500 MG ORAL CAPSULE 1 po qid K EFLEX 500 MG ORAL CAPSULE 013056 CEPHALEXIN Inactive COLCRYS 0.6 MG ORAL TABLET 1 tab qid prn gout COLCRYS 0.6 MG ORAL TABLET 692800 COLCHICINE Inactive FAMOTIDINE 20 MG ORAL TABLET by mouth twice a day 2017 FAMOTIDINE 20 MG ORAL TABLET 404528 FAMOTIDINE Inactive GLIMEPIRIDE 2 MG ORAL TABLET 1 po BID GLIMEPIRIDE 2 MG ORAL TABLET 311772 GLIMEPIRIDE Inactive AMLODIPINE BESYLATE 5 MG ORAL TABLET 1 tablet by mouth daily 201 05/19/02 AMLODIPINE BESYLATE 5 MG ORAL TABLET 977962 AMLODIPINE BESYLATE Inactive LOVENOX 100 MG/ML SUBCUTANEOUS SOLUTION One injection twice a da y LOVENOX 100 MG/ML SUBCUTANEOUS SOLUTION 377643 ENOXAPAR IN SODIUM Inactive PREDNISONE 20 MG ORAL TABLET 2 tabs daily for 3 days 1 tab d aily for 3 days PREDNISONE 20 MG ORAL TABLET 068728 PREDNISONE Inactive KEFLEX 500 MG ORAL CAPSULE 1 capsule by mouth three times da rocky x10 days KEFLEX 500 MG ORAL CAPSULE 602295 CEPHALEXIN I nactive Advance Directives Directive Description [...] - Chem istry sodium, serum 138 mmol/L 433-423 2895/11/07 potassium, serum 4.5 mmol/L 3.5-5.2 chloride, serum 100 mmol/L 98-107 carbon dioxide, venous blood 30.1 mmol/L 21.0-32 .0 blood glucose 120 mg/dL 65-95 calcium, serum 11.0 mg/dL 8.5-10.1 urea nitrogen, blood 25 mg/dL 7-18 creatinine, serum 0.95 mg/dL 0.60-1.30 Estimated Glomerular Filtration Rate (calc) 84 (?) mL/min/1.73m2 = OR > 60 mL/min Lab Report: Calcium - Chemistry calcium, serum 11.0 mg/dL 8.5-10.1 calcium, serum 10.9 mg/dL 8.5-10.1 Lab Report: CBC W/DIFF, Comp. Metabolic Panel - Chemistry sodium, serum 140 mmol/L 938-787 5154/11/01 carbon dioxide, venous blood 28.6 mmol/L 21.0-32 [...] 30 - 300 mg/g Abnormal mg/g mg/L 0 Office Visit: Med Review - Basic LDL target level 100 mg/dL Office Visit: Med Review - Chemistry HDL cholesterol, serum, target level 40 mg/dL cholesterol, target level 200 mg/dL triglyceride, target level 150 mg/dL Encounters Code Encounter Date Provider Facility CPT-74613 [id number] Vst-Est Level IV 16:21:22 CDT Bru robinson W [facility] CPT-06824 Level 3 Est. Patient 15:18:36 CDT Becky anderson [facility] CPT-56286 [id number] Vst-Est Level IV 10:06:35 CDT Bru ce W [facility] CPT-15424 42823-Oir Vst-Est Level IV 10:52:00 [employer] Stephy Ambrose [facility] CPT-01090 Level 3 Est. Patient 18:25:53 CDT Mitch luis [facility] CPT-29971 Level 3 Est. Patient 19:43:34 CDT Mitch luis [facility] CPT-87549 Level 4 Est. Patient 09:30:18 CDT Mitch luis [facility]-99799 Level 3 Est. Patient 15:10:14 CDT Devonjustincarlitos kamara [facility] CPT-05220 Level 3 Est. Patient 15:03:46 CDT Devonjustincarlitos kamara [facility]-54310 Level 3 Est. Patient 14:21:06 CDT Mitch luis [facility]-63547 Level 3 Est. Patient 14:52:06 CDT Joe Jason kamara [facility]-82488 Level 3 Est. Patient 09:34:30 COATER SMOKING PIPE Mitch luis [facility]-94406 Level 3 Est. Patient 09:37:15 CDT Mitch luis [facility]-87168 Level 3 Est. Patient 17:01:00 COATER SMOKING PIPE Mitch luis [facility] CPT-39429 Level 3 Est. Patient 13:53:19 COATER SMOKING PIPE Mitch luis [facility] CPT-63451 Level 3 Est. Patient 19:19:37 COATER SMOKING PIPE Mitch luis [facility] CPT-89464 Level 3 Est. Patient 13:25:53 COATER SMOKING PIPE Tavo toure MD [facility]-80921 Level 3 Est. Patient 18:17:28 CDT Mitch luis [facility] CPT-92024 Level 3 Est. Patient 15:22:57 CDT Mitch luis [facility] CPT-45019 Level 3 Est. Patient 18:21:50 CDT Mitch luis [facility]-09648 Level 3 Est. Patient 18:20:38 CDT Mitch Ambrose L janelle [facility] CPT-12214 Level 3 Est. Patient 15:37:55 CDT Mitch luis [facility] CPT-28160 Level 2 Est. Patient 15:54:44 CDT Carmine benton MD [facility] CPT-81821 Level 3 Est. Patient 21:46:01 COATER SMOKING PIPE Mitch luis [facility] CPT-07021 Level 3 Est. Patient 22:15:50 CDT Mitch Arnol Nona janelle [facility] CPT-67759 Level 3 Est. Patient 10:48:15 CDT Mitch Arnol luis [facility] CPT-10652 Level 3 Est. Patient 23:20:57 CDT Tavo toure MD [facility] CPT-62962 Level 3 Est. Patient 16:26:13 CDT Mitch Castellano janelle [facility] Procedures Code Procedure Name Date Entry Date Standard Desc ription CPT-32732 Venipuncture Draw Fee 10:44:42 [employer] CPT-72325 Venipuncture Draw Fee 14:46:55 [employer] CPT-02881 Venipuncture Draw Fee 08:26:21 CDT CPT-93937 Venous Duplex Left Leg XRAY USE ONLY 10:43:10 CDT CPT-48407 Venipuncture Draw Fee 17:04:55 CDT CPT-27967 Venipuncture Draw Fee 17:20:50 CDT CPT-13877 Venipuncture Draw Fee 18:00:48 CDT CPT-76678 Venipuncture Draw Fee 14:56:20 CDT CPT-JTINJ Asp/Joint Injection 18:47:02 CDT CPT-63705 Venipuncture Draw Fee 09:26:17 CDT CPT-90830 PT/INR - LAB USE ONLY 13:32:49 [employer] CPT-81045 Venipuncture Draw Fee 13:32:49 CO[employer] SMO[employer] CPT-80109 PT/INR - LAB USE ONLY 10:34:49 CO[employer] SMOKING [employer]IPE CPT-17918 Venipuncture Draw Fee 10:34:48 COATER SMO[employer] CPT-09436 PT/INR - LAB USE ONLY 09:22:03 COATER SMO[employer] CPT-87471 Venipuncture Draw Fee 09:22:02 CO[employer] SMO[employer] CPT-67712 Hemoccult IFOBT - LAB USE ONLY 10:27:22 CDT CPT-31324 Venipuncture Draw Fee 08:27:08 CDT CPT-93510 Liver Profile - LAB USE ONLY 08:27:07 CDT 2 CPT-74341 Microalbumin - LAB USE ONLY 08:27:07 CDT 20 25/05/09 CPT-90918 PT/INR - LAB USE ONLY 08:27:07 CDT CPT-34466 HGBA1C - LAB USE ONLY 08:27:07 CDT CPT-25466 CBC - LAB USE ONLY 08:27:07 CDT CPT-71162 Venipuncture Draw Fee 11:09:14 CDT CPT-90365 Venipuncture Draw Fee 08:32:21 [employer] S[employer] CPT-21671 Venipuncture Draw Fee 09:38:56 CO[employer]MO[employer] CPT-52287 No Charge Offi Visit 21:36:07 CDT 1 CPT-85913 Venipuncture Draw Fee 10:13:28 [employer] CPT-28699 Venipuncture Draw Fee 08:31:11 CDT CPT-04691 Aspir/Inject Med Joint 18:17:28 CDT CPT-55600 Venipuncture Draw Fee 10:13:30 CDT CPT-90076 Venipuncture Draw Fee 08:31:43 [employer] CPT-JTINJ Joint Injection 18:34:50 CDT CPT-33029 Knee 3V 12:25:09 CDT CPT-16243 Venipuncture Draw Fee 12:15:57 CDT CPT-060 Medical Surveillance Exam 21:31:43 CDT 2011 CPT-01058 Venipuncture Draw Fee 08:32:05 [employer] CPT-OV Office Visit 18:19:06 CDT
--- OUTSIDE RECORDS SUMMARY | 2020-01-18 11:53 | XMS REPORT | Clinical Summary ---
Author Author Admin, Mitch Leon Organization [facility] Address Unknown Phone Unavailable Allergies, Adverse [...] Coronary atherosclerosis of unspecified type of vessel, [place] or graft EDEMA 782.3 Resolved Mitch Urbina [...] 1 tablet by mouth daily AMLODIPINE BESYLATE 33354862084 No Longer Active Joe Williamson APRN Active MITIGARE 0.6 MG ORAL CAPS 2 capsules at onset of gout pain, then take one capsule at 1 hour if symptoms persist. COLCHICINE 59 524715133 Active Mitch Urbina DO Active COUMADIN 1 MG TAB 2 tabs orally daily with the 5mg tab to equal 7mg daily WARFARIN SODIUM 24811808491 Active Brenda Shen Active COLCRYS 0.6 MG TABS 1 tab qid prn gout COLCHICINE 99125527759 Active Norma Cazares Active INVOKANA 100 MG ORAL TABS 1 tablet orally daily CANAGLIFLOZIN 95844145977 Active Brenda Shen Active MINOXIDIL 2.5 MG TABS 1 tablet daily for high blood pressure 10/23 MINOXIDIL 08057355315 Active Ana Wallace Active MECLIZINE HCL 25 MG TAB 1 po tid 3 days, then 1/2 tab tid 3 days MECLIZINE HCL 23677042221 No Longer Active Corey SEGURA Active ALLOPURINOL 300 MG TABS Take 1 tablet by mouth daily 2 ALLOPURINOL 38947577109 No Longer Active Corey SEGURA Activ e CLONIDINE HCL 0.1 MG TABS 1 po bid 7 days, then 1/2 tab po b id 7 days CLONIDINE HCL 58287778059 No Longer Active Corey SEGURA Active COUMADIN 5 MG TABS 1 tab PO daily WARFARIN SODIUM 85651378171 Active Mitch Urbina DO Active COUMADIN 4 MG TABS 1 tablet daily WARFARIN SODI UM 36419124027 No Longer Active Corey SEGURA Active POLYTRIM 89203-8.1 UNIT/ML-% SOLN 1 drop in affected e ye every 3 hours while awake x 7 days POLYMYXIN B-TRIMETHOPRIM 27270285084 N o Longer Active Corey SEGURA Active LOSARTAN POTASSIUM-HCTZ 100-12.5 MG TABS 1 by mouth da [place] for high blood pressure LOSARTAN POTASSIUM-HCTZ 59723124379 Active Stephy Urbina DO Active LISINOPRIL-HYDROCHLOROTHIAZIDE 20-12.5 MG TABS 1 tab by mouth da rocky LISINOPRIL-HYDROCHLOROTHIAZIDE 45879722396 No Longer Active Mitch luis DO Active LISINOPRIL 20 MG TABS 1 tab po at HS LISINOPRIL 83921080706 No Longer Active Mitch Urbina DO Active COUMADIN 5 MG TABS 1 by mouth every other day WARFARIN SODIUM 72378998087 No Longer Active Mitch Ambrose Carlitos DO Active COUMADIN 6 MG TABS 1 by mouth every other day WARFARIN SODIUM 92440784963 No Longer Active Mitch Urbina DO Active SIMVASTATIN 40 MG TABS 1 tab daily at bedtime S IMVASTATIN 66133593480 Active Mitch Urbina DO Active SIMVASTATIN 20 MG TABS 1 tab daily at bedtime S IMVASTATIN 03549451635 No Longer Active Mitch Urbina DO Active LOVENOX 100 MG/ML SC SOLN One injection twice a day 09/15/15 ENOXAPARIN SODIUM 84716056726 No Longer Active Carmine Navarrete ctive JANUVIA 50 MG TABS Take one by mouth daily DIEGO GLIPTIN PHOSPHATE 78322041421 Active Mitch Urbina DO Active JANUVIA 100 MG TABS 1/2 by mouth every day DIEGO GLIPTIN PHOSPHATE 73921670514 No Longer Active Bijal Segal RN Active METFORMIN HCL 500 MG TABS 2 by mouth twice daily METFORMIN HCL 75345015192 Active Mitch Urbina DO Active GLIMEPIRIDE 4 MG TABS 1 tab po bid GLIMEPIRIDE 433838 85797 Active Mitch Urbina DO Active COLCRYS 0.6 MG TABS 1 po q 6 hours prn gout pain 03/02 COLCHICINE 68135365522 No Longer Active Camila Reese Active LISINOPRIL 5 MG TABS 1 by mouth every day LISIN OPRIL 61655217647 No Longer Active Nguyen Perez Active KLOR-CON 20 MEQ PACK Take one by mouth daily 8 POTASSIUM CHLORIDE 18605700965 No Longer Active Nguyen Perez Active FUROSEMIDE 40 MG TABS 1 by mouth daily FUROSEMI DE 23967307069 No Longer Active Nguyen Perez Active PROVIGIL 200 MG TABS 1/2 tab po q day MODAFINIL 39056 760039 Active Kathie Juan RPT,RMA Active PROVIGIL 100 MG TABS Take one by mouth daily MO DAFINIL 23801586902 No Longer Active Mitch Urbina DO Active BACTRIM DS 800-160 MG TAB 1 tab by mouth twice daily 2 TRIMETHOPRIM-SULFAMETHOXAZOLE 64678733234 No Longer Active Renan Hays MD Active FAMOTIDINE 20 MG TABS by mouth twice a day FAMOTI DINE 10392512917 Active Mitch Urbina DO Active ADULT ASPIRIN LOW STRENGTH 81 MG TBDP 1 by mouth every daily ASPIRIN 04939181168 Active Mitch Urbina DO Active METOPROLOL TARTRATE 50 MG TABS 1 by mouth twice daily METOPROLOL TARTRATE 68155221149 Active Mitch Urbina DO Active BACTRIM DS 800-160 MG TAB 1 tab by mouth twice daily 2 BACTRIM DS 800-160 MG TAB 874724 TRIMETHOPRIM-SULFAMETHOXAZOLE Inac tive PROVIGIL 100 MG TABS Take one by mouth daily 4 PROVIGIL 100 MG TABS 746741 MODAFINIL Inactive FUROSEMIDE 40 MG TABS 1 by mouth daily FU ROSEMIDE 40 MG TABS 628690 FUROSEMIDE Inactive KLOR-CON 20 MEQ PACK Take one by mouth daily 8 KLOR-CON 20 MEQ PACK 916262 POTASSIUM CHLORIDE Inactive LISINOPRIL 5 MG TABS 1 by mouth every day LISINOPRIL 5 MG TABS 231066 LISINOPRIL Inactive COLCRYS 0.6 MG TABS 1 po q 6 hours prn gout pain 03/02 COLCRYS 0.6 MG TABS 239763 COLCHICINE Inactive JANUVIA 100 MG TABS 1/2 by mouth every day JANUVI A 100 MG TABS SITAGLIPTIN PHOSPHATE Inactive SIMVASTATIN 20 MG TABS 1 tab daily at bedtime SIMVASTATIN 20 MG TABS 738775 SIMVASTATIN Inactive COUMADIN 6 MG TABS 1 by mouth every other day COUMADIN 6 MG TABS 150238 WARFARIN SODIUM Inactive COUMADIN 5 MG TABS 1 by mouth every other day COUMADIN 5 MG TABS 134333 WARFARIN SODIUM Inactive LISINOPRIL 20 MG TABS 1 tab po at HS KOKI NOPRIL 20 MG TABS 179272 LISINOPRIL Inactive LISINOPRIL-HYDROCHLOROTHIAZIDE 20-12.5 MG TABS 1 tab by mouth da rocky LISINOPRIL-HYDROCHLOROTHIAZIDE 20-12.5 MG TABS 203504 LISINOPRIL-HYDROCHLOROTHIAZIDE Inactive POLYTRIM 08651-4.1 UNIT/ML-% SOLN 1 drop in affected e ye every 3 hours while awake x 7 days POLYTRIM 61798-6.1 UNIT/ML-% SOLN 89237 7 POLYMYXIN B-TRIMETHOPRIM Inactive COUMADIN 4 MG TABS 1 tablet daily COUMADIN 4 MG TABS 952376 WARFARIN SODIUM Inactive CLONIDINE HCL 0.1 MG TABS 1 po bid 7 days, then 1/2 tab po b id 7 days CLONIDINE HCL 0.1 MG TABS 936209 CLONIDINE HCL I nactive ALLOPURINOL 300 MG TABS Take 1 tablet by mouth daily 2 ALLOPURINOL 300 MG TABS 360604 ALLOPURINOL Inactive MECLIZINE HCL 25 MG TAB 1 po tid 3 days, then 1/2 tab tid 3 days MECLIZINE HCL 25 MG TAB 059793 MECLIZINE HCL Inactive AMLODIPINE BESYLATE 5 MG TABS 1 tablet by mouth daily AMLODIPINE BESYLATE 5 MG TABS 875160 AMLODIPINE BESYLATE Inactive LOVENOX 100 MG/ML SC SOLN One injection twice a day 09/15/15 LOVENOX 100 MG/ML SC SOLN 883878 ENOXAPARIN SODIUM Inactive Vital Signs Date Name [...] Range Description Chart Maintenance: hemoccult added to [facility] - Chemistry occult blood, stool (E&M) Positive Lab Report: Lipid Panel, HEPATIC PANEL, MICROALB/CREAT W/RATIO, HGBA1C, CBC - Chemistry cholesterol, serum 136 mg/dL [phone]/08/09 triglyceride, serum, fasting 187 mg/dL 30-200 HDL [...] 1.0-3.5 Encounters Code Encounter Date Provider Facility CPT-59149 Level 3 Est. Patient 15:10:[address] [facility] [place]-29433 Level 3 Est. Patient 15:03:46 CDT Joe kamara [facility] CPT-76231 Level 3 Est. Patient 14:21:06 CDT Mitch luis [facility] CPT-42703 Level 3 Est. Patient 14:52:06 CDT Joe kamara [facility] CPT-59679 Level 3 Est. Patient 09:34:30 SENIOR SOURCING MANAGER Mitch luis [facility] CPT-91049 Level 3 Est. Patient 09:37:15 CDT Mitch luis [facility] CPT-60796 Level 3 Est. Patient 17:01:00 SENIOR SOURCING MANAGER Mitch luis [facility] CPT-55114 Level 3 Est. Patient 13:53:19 SENIOR SOURCING MANAGER Mitch luis [facility] CPT-29857 Level 3 Est. Patient 19:19:37 SENIOR SOURCING MANAGER Mitch luis [facility] CPT-64644 Level 3 Est. Patient 13:25:53 SENIOR SOURCING MANAGER Tavo toure MD [facility] CPT-65127 Level 3 Est. Patient 18:17:28 CDT Mitch luis [facility] CPT-04025 Level 3 Est. Patient 15:22:57 CDT Mitch luis [facility] CPT-90687 Level 3 Est. Patient 18:21:50 CDT Mitch luis [facility] CPT-72107 Level 3 Est. Patient 18:20:38 CDT Mitch luis [facility] CPT-94976 Level 3 Est. Patient 15:37:55 CDT Mitch luis [facility] CPT-89555 Level 2 Est. Patient 15:54:44 CDT Carmine benton MD [facility] CPT-42057 Level 3 Est. Patient 21:46:01 SENIOR SOURCING MANAGER Mitch luis [facility] CPT-63435 Level 3 Est. Patient 22:15:50 CDT Mitch luis [facility] CPT-32604 Level 3 Est. Patient 10:48:15 CDT Mitch luis [facility] CPT-84523 Level 3 Est. Patient 23:20:57 CDT Tavo toure MD [facility] CPT-12286 Level 3 Est. Patient 16:26:13 CDT Mitch luis [facility] Procedures Code Procedure Name Date Entry Date Standard Desc ription CPT-20887 PT/INR - LAB USE ONLY 13:32:49 SENIOR SOURCING MANAGER CPT-00073 Venipuncture Draw Fee 13:32:49 SENIOR SOURCING MANAGER CPT-07081 PT/INR - LAB USE ONLY 10:34:49 SENIOR SOURCING MANAGER CPT-16505 Venipuncture Draw Fee 10:34:48 SENIOR SOURCING MANAGER CPT-18272 PT/INR - LAB USE ONLY 09:22:03 SENIOR SOURCING MANAGER CPT-23058 Venipuncture Draw Fee 09:22:02 SENIOR SOURCING MANAGER CPT-77625 Hemoccult IFOBT - LAB USE ONLY 10:27:22 CDT CPT-07682 Venipuncture Draw Fee 08:27:08 CDT CPT-41509 Liver Profile - LAB USE ONLY 08:27:07 CDT 2 CPT-22693 Microalbumin - LAB USE ONLY 08:27:07 CDT 20 25/05/09 CPT-05938 PT/INR - LAB USE ONLY 08:27:07 CDT CPT-22967 HGBA1C - LAB USE ONLY 08:27:07 CDT CPT-44015 CBC - LAB USE ONLY 08:27:07 CDT CPT-42637 Venipuncture Draw Fee 11:09:14 CDT CPT-58042 Venipuncture Draw Fee 08:32:21 SENIOR SOURCING MANAGER CPT-22005 Venipuncture Draw Fee 09:38:56 SENIOR SOURCING MANAGER CPT-08461 No Charge Offi Visit 21:36:07 CDT 1 CPT-42031 Venipuncture Draw Fee 10:13:28 SENIOR SOURCING MANAGER CPT-98692 Venipuncture Draw Fee 08:31:11 CDT CPT-80508 Aspir/Inject Med Joint 18:17:28 CDT CPT-63918 Venipuncture Draw Fee 10:13:30 CDT CPT-89292 Venipuncture Draw Fee 08:31:43 SENIOR SOURCING MANAGER CPT-JTINJ Joint Injection 18:34:50 CDT CPT-81569 Knee 3V 12:25:09 CDT CPT-45479 Venipuncture Draw Fee 12:15:57 CDT CPT-060 Medical Surveillance Exam 21:31:43 CDT 2011 CPT-90868 Venipuncture Draw Fee 08:32:05 SENIOR SOURCING MANAGER CPT-OV Office Visit 18:19:06 CDT
--- OUTSIDE RECORDS SUMMARY | 2020-01-18 11:53 | XMS REPORT | Clinical Summary ---
Author Author Admin, Mitch Leon Organization [facility] Address Unknown Phone Unavailable Allergies, Adverse Reactions, [...] Coronary atherosclerosis of unspecified type of vessel, [place] or graft EDEMA 782.3 Resolved Mitch [...] neoplasm of colon Coumadin therapy V58.61 Active Doim Rivera MA Long-term (current) use of anticoagulants [...] 10/23 GOUT, RIGHT WRIST ICD-274.9 Inactive Mitch W Le e DO BRUISE ICD-924.9 Inactive Mitch [...] Start Date Stop Date Generic Name [facility][NOTE 3] Status Provider Patient Instruction GLIMEPIRIDE 4 MG ORAL TABLET 1 tablet by mouth twice daily f or diabetes GLIMEPIRIDE 77793886850 Active Mitch Urbina DO Active GLIMEPIRIDE 2 MG ORAL TABLET 1 po BID GLIMEPI RIDE 20789745809 No Longer Active Mitch Urbina DO Active AMLODIPINE BESYLATE 5 MG ORAL TABLET 1 tablet by mouth daily AMLODIPINE BESYLATE 52192223796 Active Mitch Urbina DO Active PROVIGIL 200 MG ORAL TABLET 1/2 tab po q day MODA FINIL 41573315380 Active Renee Oconnor LPN Active FAMOTIDINE 20 MG ORAL TABLET by mouth twice a day 2017 FAMOTIDINE 83336373888 No Longer Active Mitch Urbina DO Active COLCRYS 0.6 MG ORAL TABLET 1 tab qid prn gout C OLCHICINE 43827298228 No Longer Active Mitch Urbina DO Active KEFLEX 500 MG ORAL CAPSULE 1 po qid CEPHALEXI N 14600384053 No Longer Active Mitch Urbina DO Active LOSARTAN POTASSIUM 100 MG ORAL TABLET 1 pill by mouth daily, for blood pressure LOSARTAN POTASSIUM 89837157021 Active Ana Ocampo Active AMLODIPINE BESYLATE 5 MG ORAL TABLET 1 tablet by mouth daily 201 01/20/04 AMLODIPINE BESYLATE 56107546671 No Longer Active Joe fulton APRN Active MITIGARE 0.6 MG ORAL CAPSULE 2 capsules at onset of go ut pain, then take one capsule at 1 hour if symptoms persist. COLCHICINE 59 750167431 Active Mitch Urbina Active COUMADIN 1 MG ORAL TABLET 2 tabs orally daily with the 5mg tab to equal 7mg daily WARFARIN SODIUM 31031322134 Active Renee Oconnor LPN Active INVOKANA 100 MG ORAL TABLET 1 tablet orally daily CANAGLIFLOZIN 70647534419 Active Renee Quirogamonserrat DE [place] ROSA Active MINOXIDIL 2.5 MG ORAL TABLET 1 tablet daily for high blood press ure MINOXIDIL 30034325295 Active Renee Oconnor PHARMACY SERVICES REPRESENTATIVE Active MECLIZINE HCL 25 MG ORAL TABLET 1 po tid 3 days, then 1/2 ta b tid 3 days MECLIZINE HCL 82326587208 No Longer Active Corey SEGURA Active ALLOPURINOL 300 MG ORAL TABLET Take 1 tablet by mouth daily 2012 ALLOPURINOL 42640837526 No Longer Active Corey SEGURA Active CLONIDINE HCL 0.1 MG ORAL TABLET 1 po bid 7 days, then 1/2 t ab po bid 7 days CLONIDINE HCL 53361782451 No Longer Active Corey SEGURA Active COUMADIN 5 MG ORAL TABLET 1 tab PO daily WARFAR IN SODIUM 88476324391 Active Renee Elvin DE LA ROSA Active COUMADIN 4 MG ORAL TABLET 1 tablet daily WARFAR IN SODIUM 09357691367 No Longer Active Corey SEGURA Active POLYTRIM 55456-0.1 UNIT/ML-% OPHTHALMIC SOLUTION 1 rui p in affected eye every 3 hours while awake x 7 days POLYMYXIN B-TRIMETHOP RIM 99575497366 No Longer Active Corey SEGURA Active LOSARTAN POTASSIUM-HCTZ 100-12.5 MG ORAL TABLET 1 by m outh daily for high blood pressure LOSARTAN POTASSIUM-HCTZ 42534931846 No Longer A ctive Mitch Urbina DO Active LISINOPRIL-HYDROCHLOROTHIAZIDE 20-12.5 MG ORAL TABLET 1 tab by m outh daily LISINOPRIL-HYDROCHLOROTHIAZIDE 09918842119 No Longer Active Mitch Urbina DO Active LISINOPRIL 20 MG ORAL TABLET 1 tab po at HS LIS INOPRIL 03446942091 No Longer Active Mitch Urbina DO Active COUMADIN 5 MG ORAL TABLET 1 by mouth every other day 2 WARFARIN SODIUM 47921873915 No Longer Active Mitch Urbina DO Active COUMADIN 6 MG ORAL TABLET 1 by mouth every other day 2 WARFARIN SODIUM 80408342573 No Longer Active Mitch Urbina DO Active SIMVASTATIN 40 MG ORAL TABLET 1 tab daily at bedtime SIMVASTATIN 32007271684 Active Mitch Urbina DO Active SIMVASTATIN 20 MG ORAL TABLET 1 tab daily at bedtime 2 SIMVASTATIN 43446381264 No Longer Active Mitch Urbina DO Active LOVENOX 100 MG/ML SUBCUTANEOUS SOLUTION One injection twice a da y ENOXAPARIN SODIUM 07161711437 No Longer Active Carmine Yusuf MD Active JANUVIA 50 MG ORAL TABLET Take one by mouth daily SITAGLIPTIN PHOSPHATE 42350435293 Active Renee Oconnoreder DE LA ROSA Active JANUVIA 100 MG ORAL TABLET 1/2 by mouth every day 2011 SITAGLIPTIN PHOSPHATE 07628618164 No Longer Active Bijal Segal RN Acti ve METFORMIN HCL 500 MG ORAL TABLET 2 by mouth twice daily METFORMIN HCL 54992846646 No Longer Active Renee Oconnor LPN Active COLCRYS 0.6 MG ORAL TABLET 1 po q 6 hours prn gout pain COLCHICINE 89899865268 No Longer Active Camila Reese Active LISINOPRIL 5 MG ORAL TABLET 1 by mouth every day 11/17 LISINOPRIL 20756536166 No Longer Active Nguyen Perez Active KLOR-CON 20 MEQ ORAL PACKET Take one by mouth daily 09/10/08 POTASSIUM CHLORIDE 02238358209 No Longer Active Nguyenmolly Perez Active FUROSEMIDE 40 MG ORAL TABLET 1 by mouth daily F UROSEMIDE 11725264980 No Longer Active Nguyen Ana Active PROVIGIL 100 MG ORAL TABLET Take one by mouth daily 08/20/04 MODAFINIL 45934050193 No Longer Active Mitch Urbina DO Active BACTRIM DS 800-160 MG ORAL TABLET 1 tab by mouth twice daily 201 10/19/09 TRIMETHOPRIM-SULFAMETHOXAZOLE 39857189041 No Longer Active Elian Hays MD Active ADULT ASPIRIN LOW STRENGTH 81 MG ORAL TABLET DISINTEGR ATING 1 by mouth every daily ASPIRIN 87695182668 Active Mitch Urbina DO Ac tive METOPROLOL TARTRATE 50 MG ORAL TABLET 1 by mouth twice daily METOPROLOL TARTRATE 78995155691 Active Anabella Ocampo Activ e BACTRIM DS 800-160 MG ORAL TABLET 1 tab by mouth twice daily 201 10/19/09 BACTRIM DS 800-160 MG ORAL TABLET 103637 TRIMETHOPRIM-SULFAMETHOXAZOLE Inactive PROVIGIL 100 MG ORAL TABLET Take one by mouth daily 08/20/04 PROVIGIL 100 MG ORAL TABLET 136912 MODAFINIL Inactive FUROSEMIDE 40 MG ORAL TABLET 1 by mouth daily FUROSEMIDE 40 MG ORAL TABLET 151098 FUROSEMIDE Inactive KLOR-CON 20 MEQ ORAL PACKET Take one by mouth daily 09/10/08 KLOR- CON 20 MEQ ORAL PACKET 0846253 POTASSIUM CHLORIDE Inactive LISINOPRIL 5 MG ORAL TABLET 1 by mouth every day 11/17 LISINOPRIL 5 MG ORAL TABLET 676365 LISINOPRIL Inactive COLCRYS 0.6 MG ORAL TABLET 1 po q 6 hours prn gout pain COLCRYS 0.6 MG ORAL TABLET 334322 COLCHICINE Inactive JANUVIA 100 MG ORAL TABLET 1/2 by mouth every day 2011 JANUVIA 100 MG ORAL TABLET SITAGLIPTIN PHOSPHATE Inactive SIMVASTATIN 20 MG ORAL TABLET 1 tab daily at bedtime 2 SIMVASTATIN 20 MG ORAL TABLET 648380 SIMVASTATIN Inactive COUMADIN 6 MG ORAL TABLET 1 by mouth every other day 2 COUMADIN 6 MG ORAL TABLET 351250 WARFARIN SODIUM Inactive COUMADIN 5 MG ORAL TABLET 1 by mouth every other day 2 COUMADIN 5 MG ORAL TABLET 210626 WARFARIN SODIUM Inactive LISINOPRIL 20 MG ORAL TABLET 1 tab po at HS LISINOPRIL 20 MG ORAL TABLET 462171 LISINOPRIL Inactive LISINOPRIL-HYDROCHLOROTHIAZIDE 20-12.5 MG ORAL TABLET 1 tab by m outh daily LISINOPRIL-HYDROCHLOROTHIAZIDE 20-12.5 MG ORAL TABLET 264283 LISINOPRIL-HYDROCHLOROTHIAZIDE Inactive POLYTRIM 28139-4.1 UNIT/ML-% OPHTHALMIC SOLUTION 1 rui p in affected eye every 3 hours while awake x 7 days POLYTRIM 1000 0-0.1 UNIT/ML-% OPHTHALMIC SOLUTION 211512 POLYMYXIN B-TRIMETHOPRIM Inactive COUMADIN 4 MG ORAL TABLET 1 tablet daily COUMADIN 4 MG ORAL TABLET 272484 WARFARIN SODIUM Inactive CLONIDINE HCL 0.1 MG ORAL TABLET 1 po bid 7 days, then 1/2 t ab po bid 7 days CLONIDINE HCL 0.1 MG ORAL TABLET 248134 CLONIDIN E HCL Inactive ALLOPURINOL 300 MG ORAL TABLET Take 1 tablet by mouth daily 2012 ALLOPURINOL 300 MG ORAL TABLET 844211 ALLOPURINOL I nactive MECLIZINE HCL 25 MG ORAL TABLET 1 po tid 3 days, then 1/2 ta b tid 3 days MECLIZINE HCL 25 MG ORAL TABLET 510420 MECLIZINE HCL Inactive AMLODIPINE BESYLATE 5 MG ORAL TABLET 1 tablet by mouth daily 201 01/20/04 AMLODIPINE BESYLATE 5 MG ORAL TABLET 218310 AMLODIPINE BESYLATE Inactive KEFLEX 500 MG ORAL CAPSULE 1 po qid K EFLEX 500 MG ORAL CAPSULE 382134 CEPHALEXIN Inactive COLCRYS 0.6 MG ORAL TABLET 1 tab qid prn gout COLCRYS 0.6 MG ORAL TABLET 670711 COLCHICINE Inactive FAMOTIDINE 20 MG ORAL TABLET by mouth twice a day 2017 FAMOTIDINE 20 MG ORAL TABLET 035220 FAMOTIDINE Inactive GLIMEPIRIDE 2 MG ORAL TABLET 1 po BID GLIMEPIRIDE 2 MG ORAL TABLET 853234 GLIMEPIRIDE Inactive LOVENOX 100 MG/ML SUBCUTANEOUS SOLUTION One injection twice a da y LOVENOX 100 MG/ML SUBCUTANEOUS SOLUTION 232799 ENOXAPAR IN SODIUM Inactive Advance Directives Directive Description Start Date PERMISSION TO SHARE Vital Signs Date Name Value Unit Range [...] urine <30 mg/g Normal mg/g m g/g{creat} 0- Lab Report: CBC, MICROALB/CREAT W/RATIO - Hematology [...] 4.3-6.0 Encounters Code Encounter Date Provider Facility CPT-18621 25902-Aql Vst-Est Level IV 10:52:00 CYBER FORENSIC SPECIALIST Stephy Urbina [facility] CPT-49962 Level 3 Est. Patient 18:25:53 CDT Mitch luis [facility] CPT-58737 Level 3 Est. Patient 19:43:34 CDT Mitch luis [facility] CPT-32979 Level 4 Est. Patient 09:30:18 CDT Mitch luis [facility] CPT-33068 Level 3 Est. Patient 15:10:14 CDT Joe kamara [facility] CPT-14676 Level 3 Est. Patient 15:03:46 CDT Joe kamara [facility] CPT-91347 Level 3 Est. Patient 14:21:06 CDT Mitch luis [facility] CPT-66757 Level 3 Est. Patient 14:52:06 CDT Joe kamara [facility] CPT-76850 Level 3 Est. Patient 09:34:30 CYBER FORENSIC SPECIALIST Mitch luis [facility] CPT-19626 Level 3 Est. Patient 09:37:15 CDT Mitch luis [facility] CPT-14393 Level 3 Est. Patient 17:01:00 CYBER FORENSIC SPECIALIST Mitch luis [facility] CPT-80101 Level 3 Est. Patient 13:53:19 CYBER FORENSIC SPECIALIST Mitch luis [facility] CPT-41468 Level 3 Est. Patient 19:19:37 CYBER FORENSIC SPECIALIST Mitch luis [facility] CPT-39225 Level 3 Est. Patient 13:25:53 CYBER FORENSIC SPECIALIST Tavo toure MD [facility] CPT-68723 Level 3 Est. Patient 18:17:28 CDT Mitch luis [facility] CPT-46588 Level 3 Est. Patient 15:22:57 CDT Mitch luis [facility] CPT-04145 Level 3 Est. Patient 18:21:50 CDT Mitch luis [facility] CPT-01359 Level 3 Est. Patient 18:20:38 CDT Mitch luis [facility] CPT-40379 Level 3 Est. Patient 15:37:55 CDT Mitch luis [facility] CPT-50424 Level 2 Est. Patient 15:54:44 CDT Carmine benton MD [facility] CPT-21283 Level 3 Est. Patient 21:46:01 CYBER FORENSIC SPECIALIST Mitch luis [facility] CPT-68981 Level 3 Est. Patient 22:15:50 CDT Mitch luis [facility] CPT-02458 Level 3 Est. Patient 10:48:15 CDT Mitch luis [facility] CPT-58465 Level 3 Est. Patient 23:20:57 CDT Tavo toure MD [facility] CPT-88730 Level 3 Est. Patient 16:26:13 CDT Mitch Castellano janelle [facility] Procedures Code Procedure Name Date Entry Date Standard Desc ription CPT-JTINJ Asp/Joint Injection 18:47:02 CDT CPT-90460 Venipuncture Draw Fee 09:26:17 CDT CPT-42121 PT/INR - LAB USE ONLY 13:32:49 CYBER FORENSIC SPECIALIST CPT-67814 Venipuncture Draw Fee 13:32:49 CYBER FORENSIC SPECIALIST CPT-34629 PT/INR - LAB USE ONLY 10:34:49 CYBER FORENSIC SPECIALIST CPT-37249 Venipuncture Draw Fee 10:34:48 CYBER FORENSIC SPECIALIST CPT-58755 PT/INR - LAB USE ONLY 09:22:03 CYBER FORENSIC SPECIALIST CPT-36598 Venipuncture Draw Fee 09:22:02 CYBER FORENSIC SPECIALIST CPT-30308 Hemoccult IFOBT - LAB USE ONLY 10:27:22 CDT CPT-82690 Venipuncture Draw Fee 08:27:08 CDT CPT-42525 Liver Profile - LAB USE ONLY 08:27:07 CDT 2 CPT-54128 Microalbumin - LAB USE ONLY 08:27:07 CDT 20 25/05/09 CPT-89670 PT/INR - LAB USE ONLY 08:27:07 CDT CPT-98601 HGBA1C - LAB USE ONLY 08:27:07 CDT CPT-10194 CBC - LAB USE ONLY 08:27:07 CDT CPT-59379 Venipuncture Draw Fee 11:09:14 CDT CPT-88723 Venipuncture Draw Fee 08:32:21 CYBER FORENSIC SPECIALIST CPT-47811 Venipuncture Draw Fee 09:38:56 CYBER FORENSIC SPECIALIST CPT-92873 No Charge Offi Visit 21:36:07 CDT 1 CPT-25885 Venipuncture Draw Fee 10:13:28 CYBER FORENSIC SPECIALIST CPT-84921 Venipuncture Draw Fee 08:31:11 CDT CPT-01476 Aspir/Inject Med Joint 18:17:28 CDT CPT-12716 Venipuncture Draw Fee 10:13:30 CDT CPT-40249 Venipuncture Draw Fee 08:31:43 CYBER FORENSIC SPECIALIST CPT-JTINJ Joint Injection 18:34:50 CDT CPT-58404 Knee 3V 12:25:09 CDT CPT-30869 Venipuncture Draw Fee 12:15:57 CDT CPT-060 Medical Surveillance Exam 21:31:43 CDT 2011 CPT-07624 Venipuncture Draw Fee 08:32:05 CYBER FORENSIC SPECIALIST CPT-OV Office Visit 18:19:06 CDT
--- OUTSIDE RECORDS SUMMARY | 2020-01-18 11:53 | XMS REPORT | Clinical Summary ---
Author Author Admin, Mitch Leon Organization [facility] Address Unknown Phone Unavailable Allergies, Adverse [...] Coronary atherosclerosis of unspecified type of vessel, capitan grande band or graft EDEMA 782.3 Resolved Mitch [...] Body Mass Index 32.0-32.9 Adult Active Br kevin Urbina DO Body Mass Index 32.0-32.9, adult Obesity Class I (BMI 30-34.9) Active Mitch Urbina DO Obesity, unspecified CELLULITIS, GROIN, LEFT ICD-682.2 Inactive Zoya Urbina [...] Urbina DO Cough, chronic ICD-786.2 Inactive Mitch Ambrose Carlitos Tejeda O Sebaceous cyst, infected ICD-706.2 Inactive Mitch Urbina DO Cellulitis ICD-682.9 Inactive Mitch Urbina DO 10/23 Medication List Medication Instructions Start Date Stop Date Generic Name NDC Status Provider Patient Instruction MINOXIDIL 2.5 MG ORAL TABLET 1 tablet twice daily for high b lood pressure MINOXIDIL 14096972637 Active Mitch Urbina DO Ac tive METFORMIN HCL ER 500 MG ORAL TABLET EXTENDED RELEASE 2 4 HOUR 2 tablets by mouth twice daily METFORMIN HCL 82819569376 Active Mitch Urbina Active GLIMEPIRIDE 4 MG ORAL TABLET 1 tablet by mouth twice daily f or diabetes GLIMEPIRIDE 26656547919 Active Mitch Arnol Urbina Active GLIMEPIRIDE 2 MG ORAL TABLET 1 po BID GLIMEPI RIDE 53633706196 No Longer Active Mitch Urbina DO Active AMLODIPINE BESYLATE 5 MG ORAL TABLET 1 tablet by mouth daily AMLODIPINE BESYLATE 23298459121 Active Mitch Urbina DO Active PROVIGIL 200 MG ORAL TABLET 1/2 tab po q day MODA FINIL 23930956636 Active Renee Oconnor LPN Active FAMOTIDINE 20 MG ORAL TABLET by mouth twice a day 2017 FAMOTIDINE 80777927010 No Longer Active Mitch Urbina DO Active COLCRYS 0.6 MG ORAL TABLET 1 tab qid prn gout C OLCHICINE 04832070650 No Longer Active Mitch Urbina DO Active KEFLEX 500 MG ORAL CAPSULE 1 po qid CEPHALEXI N 84890847657 No Longer Active Mitch Urbina DO Active LOSARTAN POTASSIUM 100 MG ORAL TABLET 1 pill by mouth daily, for blood pressure LOSARTAN POTASSIUM 73352551744 Active Ana Ocampo Active AMLODIPINE BESYLATE 5 MG ORAL TABLET 1 tablet by mouth daily 201 01/20/04 AMLODIPINE BESYLATE 24603690210 No Longer Active Jillina Fra donaldo MINER PICK Active MITIGARE 0.6 MG ORAL CAPSULE 2 capsules at onset of go ut pain, then take one capsule at 1 hour if symptoms persist. COLCHICINE 59 065603259 Active Mitch Urbina DO Active COUMADIN 1 MG ORAL TABLET 2 tabs orally daily with the 5mg tab to equal 7mg daily WARFARIN SODIUM 90920904436 Active Renee Oconnor LPN Active INVOKANA 100 MG ORAL TABLET 1 tablet orally daily CANAGLIFLOZIN 90472307623 Active Renee Oconnoreder BURNETTN Active MECLIZINE HCL 25 MG ORAL TABLET 1 po tid 3 days, then 1/2 ta b tid 3 days MECLIZINE HCL 77952343712 No Longer Active Corey SEGURA Active ALLOPURINOL 300 MG ORAL TABLET Take 1 tablet by mouth daily 2012 ALLOPURINOL 45596857932 No Longer Active Corey SEGURA Active CLONIDINE HCL 0.1 MG ORAL TABLET 1 po bid 7 days, then 1/2 t ab po bid 7 days CLONIDINE HCL 80072064869 No Longer Active Corey SEGURA Active COUMADIN 5 MG ORAL TABLET 1 tab PO daily WARFAR IN SODIUM 26265877918 Active Renee Oconnor LPN Active COUMADIN 4 MG ORAL TABLET 1 tablet daily WARFAR IN SODIUM 61793934340 No Longer Active Corey SEGURA Active POLYTRIM 56378-8.1 UNIT/ML-% OPHTHALMIC SOLUTION 1 rui p in affected eye every 3 hours while awake x 7 days POLYMYXIN B-TRIMETHOP RIM 26195602188 No Longer Active Corey SEGURA Active LOSARTAN POTASSIUM-HCTZ 100-12.5 MG ORAL TABLET 1 by m outh daily for high blood pressure LOSARTAN POTASSIUM-HCTZ 36395752221 No Longer A ctive Mitch Urbina DO Active LISINOPRIL-HYDROCHLOROTHIAZIDE 20-12.5 MG ORAL TABLET 1 tab by m outh daily LISINOPRIL-HYDROCHLOROTHIAZIDE 63251357322 No Longer Active Mitch Urbina DO Active LISINOPRIL 20 MG ORAL TABLET 1 tab po at HS LIS INOPRIL 41877656710 No Longer Active Mitch Urbina DO Active COUMADIN 5 MG ORAL TABLET 1 by mouth every other day 2 WARFARIN SODIUM 88566320128 No Longer Active Mitch Urbina DO Active COUMADIN 6 MG ORAL TABLET 1 by mouth every other day 2 WARFARIN SODIUM 52429091902 No Longer Active Mitch Urbina DO Active SIMVASTATIN 40 MG ORAL TABLET 1 tab daily at bedtime SIMVASTATIN 01636411324 Active Mitch Urbina DO Active SIMVASTATIN 20 MG ORAL TABLET 1 tab daily at bedtime 2 SIMVASTATIN 53997830172 No Longer Active Mitch Urbina DO Active LOVENOX 100 MG/ML SUBCUTANEOUS SOLUTION One injection twice a da y ENOXAPARIN SODIUM 42629499084 No Longer Active Carmine Yusuf MD Active JANUVIA 50 MG ORAL TABLET Take one by mouth daily SITAGLIPTIN PHOSPHATE 56043472744 Active Renee Elvin DE LA ROSA Active JANUVIA 100 MG ORAL TABLET 1/2 by mouth every day 2011 SITAGLIPTIN PHOSPHATE 30877760750 No Longer Active Bijal Segal RN Acti ve METFORMIN HCL 500 MG ORAL TABLET 2 by mouth twice daily METFORMIN HCL 96764608263 No Longer Active Renee Oconnor LPN Active COLCRYS 0.6 MG ORAL TABLET 1 po q 6 hours prn gout pain COLCHICINE 58707859123 No Longer Active Camila Reese Active LISINOPRIL 5 MG ORAL TABLET 1 by mouth every day 11/17 LISINOPRIL 62258466259 No Longer Active Nguyen Perez Active KLOR-CON 20 MEQ ORAL PACKET Take one by mouth daily 09/10/08 POTASSIUM CHLORIDE 97246588304 No Longer Active Nguyen Perez Active FUROSEMIDE 40 MG ORAL TABLET 1 by mouth daily F UROSEMIDE 69685998704 No Longer Active Nguyen Perez Active PROVIGIL 100 MG ORAL TABLET Take one by mouth daily 08/20/04 MODAFINIL 30715257834 No Longer Active Mitch Urbina DO Active BACTRIM DS 800-160 MG ORAL TABLET 1 tab by mouth twice daily 201 10/19/09 TRIMETHOPRIM-SULFAMETHOXAZOLE 76950546911 No Longer Active Elian Hays MD Active ADULT ASPIRIN LOW STRENGTH 81 MG ORAL TABLET DISINTEGR ATING 1 by mouth every daily ASPIRIN 82982242503 Active Mitch Urbina DO Ac tive METOPROLOL TARTRATE 50 MG ORAL TABLET 1 by mouth twice daily METOPROLOL TARTRATE 49867649850 Active Ana Matt BACTRIM DS 800-160 MG ORAL TABLET 1 tab by mouth twice daily 201 10/19/09 BACTRIM DS 800-160 MG ORAL TABLET 286092 TRIMETHOPRIM-SULFAMETHOXAZOLE Inactive PROVIGIL 100 MG ORAL TABLET Take one by mouth daily 20 08/20/04 PROVIGIL 100 MG ORAL TABLET 701758 MODAFINIL Inactive FUROSEMIDE 40 MG ORAL TABLET 1 by mouth daily FUROSEMIDE 40 MG ORAL TABLET 510561 FUROSEMIDE Inactive KLOR-CON 20 MEQ ORAL PACKET Take one by mouth daily 20 09/10/08 KLOR- CON 20 MEQ ORAL PACKET 9755247 POTASSIUM CHLORIDE Inactive LISINOPRIL 5 MG ORAL TABLET 1 by mouth every day 11/17 LISINOPRIL 5 MG ORAL TABLET 565836 LISINOPRIL Inactive COLCRYS 0.6 MG ORAL TABLET 1 po q 6 hours prn gout pain COLCRYS 0.6 MG ORAL TABLET 618503 COLCHICINE Inactive JANUVIA 100 MG ORAL TABLET 1/2 by mouth every day 2011 JANUVIA 100 MG ORAL TABLET SITAGLIPTIN PHOSPHATE Inactive SIMVASTATIN 20 MG ORAL TABLET 1 tab daily at bedtime 2 SIMVASTATIN 20 MG ORAL TABLET 968332 SIMVASTATIN Inactive COUMADIN 6 MG ORAL TABLET 1 by mouth every other day 2 COUMADIN 6 MG ORAL TABLET 251357 WARFARIN SODIUM Inactive COUMADIN 5 MG ORAL TABLET 1 by mouth every other day 2 COUMADIN 5 MG ORAL TABLET 189282 WARFARIN SODIUM Inactive LISINOPRIL 20 MG ORAL TABLET 1 tab po at HS LISINOPRIL 20 MG ORAL TABLET 931410 LISINOPRIL Inactive LISINOPRIL-HYDROCHLOROTHIAZIDE 20-12.5 MG ORAL TABLET 1 tab by m outh daily LISINOPRIL-HYDROCHLOROTHIAZIDE 20-12.5 MG ORAL TABLET 847900 LISINOPRIL-HYDROCHLOROTHIAZIDE Inactive POLYTRIM 61154-1.1 UNIT/ML-% OPHTHALMIC SOLUTION 1 rui p in affected eye every 3 hours while awake x 7 days POLYTRIM 1000 0-0.1 UNIT/ML-% OPHTHALMIC SOLUTION 863034 POLYMYXIN B-TRIMETHOPRIM Inactive COUMADIN 4 MG ORAL TABLET 1 tablet daily COUMADIN 4 MG ORAL TABLET 643260 WARFARIN SODIUM Inactive CLONIDINE HCL 0.1 MG ORAL TABLET 1 po bid 7 days, then 1/2 t ab po bid 7 days CLONIDINE HCL 0.1 MG ORAL TABLET 304288 CLONIDIN E HCL Inactive ALLOPURINOL 300 MG ORAL TABLET Take 1 tablet by mouth daily 2012 ALLOPURINOL 300 MG ORAL TABLET 256680 ALLOPURINOL I nactive MECLIZINE HCL 25 MG ORAL TABLET 1 po tid 3 days, then 1/2 ta b tid 3 days MECLIZINE HCL 25 MG ORAL TABLET 705802 MECLIZINE HCL Inactive AMLODIPINE BESYLATE 5 MG ORAL TABLET 1 tablet by mouth daily 201 01/20/04 AMLODIPINE BESYLATE 5 MG ORAL TABLET 782495 AMLODIPINE BESYLATE Inactive KEFLEX 500 MG ORAL CAPSULE 1 po qid K EFLEX 500 MG ORAL CAPSULE 922259 CEPHALEXIN Inactive COLCRYS 0.6 MG ORAL TABLET 1 tab qid prn gout COLCRYS 0.6 MG ORAL TABLET 834860 COLCHICINE Inactive FAMOTIDINE 20 MG ORAL TABLET by mouth twice a day 2017 FAMOTIDINE 20 MG ORAL TABLET 101992 FAMOTIDINE Inactive GLIMEPIRIDE 2 MG ORAL TABLET 1 po BID GLIMEPIRIDE 2 MG ORAL TABLET 923931 GLIMEPIRIDE Inactive LOVENOX 100 MG/ML SUBCUTANEOUS SOLUTION One injection twice a da y LOVENOX 100 MG/ML SUBCUTANEOUS SOLUTION 712848 ENOXAPAR IN SODIUM Inactive Advance Directives Directive Description Start Date PERMISSION TO SHARE Vital Signs Date Name Value Unit Range Description blood pressure, diastolic, repeated by physician 70 BP mane blood pressure, diastolic 70 mm[Hg] BP mane blood pressure, systolic, repeated by physician 140 BP sys blood pressure, systolic 140 mm[Hg] BP sys height E&M 70 [in_us] Bdy height pulse rate E&M 73 /min Heart rate temperature E&M 98.2 [degF] Body temp erature weight E&M 224.31 [lb_av] Weight Measure d blood pressure, diastolic 78 mm[Hg] BP mane [...] 11 .6-14.8 platelet count 238 10^3/MM^3 10*3/mm3 017-403 8460/03/29 leukocyte count, blood 6.7 10^3/MM^3 10*3/mm3 4.6-10.2 [...] - Lab microalbumin, urine 80 mg/L 0-19 microalbumin, urine 30 mg/L 0-19 Lab Report: CBC, MICROALB/CREAT W/RATIO - Urinalysis microalbumin/total urine volume 30 - 300 mg/g Abnormal mg/g mg/L 0-29 Lab Report: HGBA1C - Chemistry hemoglobin A1C, blood, as % of total hemoglobin 7.4 % 4.3-6.0 Office Visit: Med Review - Basic LDL target level 100 mg/dL Office Visit: Med Review - Chemistry HDL cholesterol, serum, target level 40 mg/dL cholesterol, target level 200 mg/dL triglyceride, target level 150 mg/dL Encounters Code Encounter Date Provider Facility CPT-10193 [id number] Vst-Est Level IV 10:06:35 CDT Stephy robinson Urbina [facility]-33704 [id number] Vst-Est Level IV 10:52:00 DRUM SPRAYER Stephy Ambrose [facility] CPT-14696 Level 3 Est. Patient 18:25:53 CDT Mitch luis [facility] CPT-18892 Level 3 Est. Patient 19:43:34 CDT Mitch luis [facility] CPT-77831 Level 4 Est. Patient 09:30:18 CDT Mitch luis [facility] CPT-07231 Level 3 Est. Patient 15:10:14 CDT Joe kamara [facility] CPT-50968 Level 3 Est. Patient 15:03:46 CDT Joe kamara [facility] CPT-93218 Level 3 Est. Patient 14:21:06 CDT Mitch luis [facility] CPT-36970 Level 3 Est. Patient 14:52:06 CDT Joe kamara [facility] CPT-27987 Level 3 Est. Patient 09:34:30 DRUM SPRAYER Mitch luis [facility] CPT-33257 Level 3 Est. Patient 09:37:15 CDT Mitch luis [facility] CPT-17813 Level 3 Est. Patient 17:01:00 DRUM SPRAYER Mitch W L ee DO [facility] CPT-70403 Level 3 Est. Patient 13:53:19 DRUM SPRAYER Mitch W L ee DO [facility] CPT-25721 Level 3 Est. Patient 19:19:37 DRUM SPRAYER Mitch W L ee DO [facility] CPT-09857 Level 3 Est. Patient 13:25:53 DRUM SPRAYER Tavo toure MD [facility] CPT-55203 Level 3 Est. Patient 18:17:28 CDT Mitch W L ee [facility] CPT-19955 Level 3 Est. Patient 15:22:57 CDT Mitch W L ee [facility] CPT-36938 Level 3 Est. Patient 18:21:50 CDT Mitch W L ee DO [facility] CPT-87447 Level 3 Est. Patient 18:20:38 CDT Mitch W L ee DO [facility] CPT-55349 Level 3 Est. Patient 15:37:55 CDT Mitch W L ee [facility] CPT-92772 Level 2 Est. Patient 15:54:44 CDT Carmine benton MD [facility] CPT-74805 Level 3 Est. Patient 21:46:01 DRUM SPRAYER Mitch W L ee DO [facility] CPT-42109 Level 3 Est. Patient 22:15:50 CDT Mitch W L ee [facility] CPT-40214 Level 3 Est. Patient 10:48:15 CDT Mitch W L ee [facility] CPT-68419 Level 3 Est. Patient 23:20:57 CDT Tavo toure MD [facility] CPT-76926 Level 3 Est. Patient 16:26:13 CDT Mitch luis [facility] Procedures Code Procedure Name Date Entry Date Standard Desc ription CPT-JTINJ Asp/Joint Injection 18:47:02 CDT CPT-82957 Venipuncture Draw Fee 09:26:17 CDT CPT-07116 PT/INR - LAB USE ONLY 13:32:49 DRUM SPRAYER CPT-18933 Venipuncture Draw Fee 13:32:49 DRUM SPRAYER CPT-45451 PT/INR - LAB USE ONLY 10:34:49 DRUM SPRAYER CPT-33882 Venipuncture Draw Fee 10:34:48 DRUM SPRAYER CPT-49960 PT/INR - LAB USE ONLY 09:22:03 DRUM SPRAYER CPT-93640 Venipuncture Draw Fee 09:22:02 DRUM SPRAYER CPT-61529 Hemoccult IFOBT - LAB USE ONLY 10:27:22 CDT CPT-25302 Venipuncture Draw Fee 08:27:08 CDT CPT-69617 Liver Profile - LAB USE ONLY 08:27:07 CDT 2 CPT-22963 Microalbumin - LAB USE ONLY 08:27:07 CDT 20 25/05/09 CPT-31758 PT/INR - LAB USE ONLY 08:27:07 CDT CPT-57547 HGBA1C - LAB USE ONLY 08:27:07 CDT CPT-46735 CBC - LAB USE ONLY 08:27:07 CDT CPT-77965 Venipuncture Draw Fee 11:09:14 CDT CPT-03863 Venipuncture Draw Fee 08:32:21 DRUM SPRAYER CPT-56512 Venipuncture Draw Fee 09:38:56 DRUM SPRAYER CPT-56660 No Charge Offi Visit 21:36:07 CDT 1 CPT-25116 Venipuncture Draw Fee 10:13:28 DRUM SPRAYER CPT-74999 Venipuncture Draw Fee 08:31:11 CDT CPT-57007 Aspir/Inject Med Joint 18:17:28 CDT CPT-16094 Venipuncture Draw Fee 10:13:30 CDT CPT-64770 Venipuncture Draw Fee 08:31:43 DRUM SPRAYER CPT-JTINJ Joint Injection 18:34:50 CDT CPT-28839 Knee 3V 12:25:09 CDT CPT-23736 Venipuncture Draw Fee 12:15:57 CDT CPT-060 Medical Surveillance Exam 21:31:43 CDT 2011 CPT-20481 Venipuncture Draw Fee 08:32:05 DRUM SPRAYER CPT-OV Office Visit 18:19:06 CDT
--- OUTSIDE RECORDS SUMMARY | 2020-01-18 11:53 | XMS REPORT | Clinical Summary ---
Author Author Admin, Mitch Leon Organization [facility] Address Unknown Phone Unavailable Allergies, Adverse [...] Instructions Start Date Stop Date Generic Name [facility] Status Provider Patient Instruction GLIMEPIRIDE 4 MG ORAL TABLET 1 tablet by mouth twice daily f or diabetes GLIMEPIRIDE 12225300476 Active Mitch Urbina DO Active GLIMEPIRIDE 2 MG ORAL TABLET 1 po BID GLIMEPI RIDE 03833281997 No Longer Active Mitch Urbina DO Active AMLODIPINE BESYLATE 5 MG ORAL TABLET 1 tablet by mouth daily AMLODIPINE BESYLATE 86093662818 Active Mitch Urbina DO Active PROVIGIL 200 MG ORAL TABLET 1/2 tab po q day MODA FINIL 88964412856 Active Renee Oconnor LPN Active FAMOTIDINE 20 MG ORAL TABLET by mouth twice a day 2017 FAMOTIDINE 55036828445 No Longer Active Mitch Urbina DO Active COLCRYS 0.6 MG ORAL TABLET 1 tab qid prn gout C OLCHICINE 56837100914 No Longer Active Mitch Urbina DO Active KEFLEX 500 MG ORAL CAPSULE 1 po qid CEPHALEXI N 77051618566 No Longer Active Mitch Urbina DO Active LOSARTAN POTASSIUM 100 MG ORAL TABLET 1 pill by mouth daily, for blood pressure LOSARTAN POTASSIUM 81862397353 Active Ana Ocampo Active AMLODIPINE BESYLATE 5 MG ORAL TABLET 1 tablet by mouth daily 201 01/20/04 AMLODIPINE BESYLATE 73556653351 No Longer Active Joe fulton APRN Active MITIGARE 0.6 MG ORAL CAPSULE 2 capsules at onset of go ut pain, then take one capsule at 1 hour if symptoms persist. 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 MECLIZINE HCL 25 MG ORAL TABLET 1 po tid 3 days, then 1/2 ta b tid 3 days MECLIZINE HCL 84023201742 No Longer Active Corey SEGURA Active ALLOPURINOL 300 MG ORAL TABLET Take 1 tablet by mouth daily 2012 ALLOPURINOL 37889806358 No Longer Active Corey SEGURA Active CLONIDINE HCL 0.1 MG ORAL TABLET 1 po bid 7 days, then 1/2 t ab po bid 7 days CLONIDINE HCL 20746515949 No Longer Active Corey SEGURA Active COUMADIN 5 MG ORAL TABLET 1 tab PO daily WARFAR IN SODIUM 40899213077 Active Renee Elvin DE [place] ROS[place] Active COUMADIN 4 MG ORAL TABLET 1 tablet daily WARFAR IN SODIUM 74851077789 No Longer Active Corey SEGURA Active POLYTRIM 40872-0.1 UNIT/ML-% OPHTHALMIC SOLUTION 1 rui p in affected eye every 3 hours while awake x 7 days POLYMYXIN B-TRIMETHOP RIM 28896110670 No Longer Active Corey SEGURA Active LOSARTAN POTASSIUM-HCTZ 100-12.5 MG ORAL TABLET 1 by m outh daily for high blood pressure LOSARTAN POTASSIUM-HCTZ 85882302952 No Longer A ctive Mitch Urbina DO Active LISINOPRIL-HYDROCHLOROTHIAZIDE 20-12.5 MG ORAL TABLET 1 tab by m outh daily LISINOPRIL-HYDROCHLOROTHIAZIDE 85755696191 No Longer Active Mitch Urbina DO Active LISINOPRIL 20 MG ORAL TABLET 1 tab po at HS LIS INOPRIL 49107771663 No Longer Active Mitch Urbina DO Active COUMADIN 5 MG ORAL TABLET 1 by mouth every other day 2 WARFARIN SODIUM 00685105690 No Longer Active Mitch Urbina DO Active COUMADIN 6 MG ORAL TABLET 1 by mouth every other day 2 WARFARIN SODIUM 26011022205 No Longer Active Mitch Urbina DO Active SIMVASTATIN 40 MG ORAL TABLET 1 tab daily at bedtime SIMVASTATIN 96213391173 Active Mitch Urbina DO Active SIMVASTATIN 20 MG ORAL TABLET 1 tab daily at bedtime 2 SIMVASTATIN 55008508438 No Longer Active Mitch Urbina DO Active LOVENOX 100 MG/ML SUBCUTANEOUS SOLUTION One injection twice a da y ENOXAPARIN SODIUM 25511969814 No Longer Active Carmine Yusuf MD Active JANUVIA 50 MG ORAL TABLET Take one by mouth daily SITAGLIPTIN PHOSPHATE 22714745370 Active Renee Oconnoreder DE [place] ROSA Active JANUVIA 100 MG ORAL TABLET 1/2 by mouth every day 2011 SITAGLIPTIN PHOSPHATE 18394247029 No Longer Active Bijal Segal RN Acti ve METFORMIN HCL 500 MG ORAL TABLET 2 by mouth twice daily METFORMIN HCL 08842942290 No Longer Active Renee Oconnor LPN Active COLCRYS 0.6 MG ORAL TABLET 1 po q 6 hours prn gout pain COLCHICINE 80498762467 No Longer Active Camila Reese Active LISINOPRIL 5 MG ORAL TABLET 1 by mouth every day 11/17 LISINOPRIL 95775592263 No Longer Active Nguyen Perez Active KLOR-CON 20 MEQ ORAL PACKET Take one by mouth daily 09/10/08 POTASSIUM CHLORIDE 91193358458 No Longer Active Nguyenmolly Perez Active FUROSEMIDE 40 MG ORAL TABLET 1 by mouth daily F UROSEMIDE 04327451892 No Longer Active Nguyen Ana Active PROVIGIL 100 MG ORAL TABLET Take one by mouth daily 08/20/04 MODAFINIL 20888581609 No Longer Active Mitch Urbina DO Active BACTRIM DS 800-160 MG ORAL TABLET 1 tab by mouth twice daily 201 10/19/09 TRIMETHOPRIM-SULFAMETHOXAZOLE 32057614528 No Longer Active Elian Hays MD Active ADULT ASPIRIN LOW STRENGTH 81 MG ORAL TABLET DISINTEGR ATING 1 by mouth every daily ASPIRIN 49784339968 Active Mitch Urbina DO Ac tive METOPROLOL TARTRATE 50 MG ORAL TABLET 1 by mouth twice daily METOPROLOL TARTRATE 61889194420 Active Anabella Ocampo Activ e BACTRIM DS 800-160 MG ORAL TABLET 1 tab by mouth twice daily 201 10/19/09 BACTRIM DS 800-160 MG ORAL TABLET 664475 TRIMETHOPRIM-SULFAMETHOXAZOLE Inactive PROVIGIL 100 MG ORAL TABLET Take one by mouth daily 08/20/04 PROVIGIL 100 MG ORAL TABLET 166338 MODAFINIL Inactive FUROSEMIDE 40 MG ORAL TABLET 1 by mouth daily FUROSEMIDE 40 MG ORAL TABLET 235533 FUROSEMIDE Inactive KLOR-CON 20 MEQ ORAL PACKET Take one by mouth daily 09/10/08 KLOR- CON 20 MEQ ORAL PACKET 5178989 POTASSIUM CHLORIDE Inactive LISINOPRIL 5 MG ORAL TABLET 1 by mouth every day 11/17 LISINOPRIL 5 MG ORAL TABLET 545343 LISINOPRIL Inactive COLCRYS 0.6 MG ORAL TABLET 1 po q 6 hours prn gout pain COLCRYS 0.6 MG ORAL TABLET 892532 COLCHICINE Inactive JANUVIA 100 MG ORAL TABLET 1/2 by mouth every day 2011 JANUVIA 100 MG ORAL TABLET SITAGLIPTIN PHOSPHATE Inactive SIMVASTATIN 20 MG ORAL TABLET 1 tab daily at bedtime 2 SIMVASTATIN 20 MG ORAL TABLET 197808 SIMVASTATIN Inactive COUMADIN 6 MG ORAL TABLET 1 by mouth every other day 2 COUMADIN 6 MG ORAL TABLET 559273 WARFARIN SODIUM Inactive COUMADIN 5 MG ORAL TABLET 1 by mouth every other day 2 COUMADIN 5 MG ORAL TABLET 077578 WARFARIN SODIUM Inactive LISINOPRIL 20 MG ORAL TABLET 1 tab po at HS LISINOPRIL 20 MG ORAL TABLET 989855 LISINOPRIL Inactive LISINOPRIL-HYDROCHLOROTHIAZIDE 20-12.5 MG ORAL TABLET 1 tab by m outh daily LISINOPRIL-HYDROCHLOROTHIAZIDE 20-12.5 MG ORAL TABLET 257620 LISINOPRIL-HYDROCHLOROTHIAZIDE Inactive POLYTRIM 18290-5.1 UNIT/ML-% OPHTHALMIC SOLUTION 1 rui p in affected eye every 3 hours while awake x 7 days POLYTRIM 1000 0-0.1 UNIT/ML-% OPHTHALMIC SOLUTION 379115 POLYMYXIN B-TRIMETHOPRIM Inactive COUMADIN 4 MG ORAL TABLET 1 tablet daily COUMADIN 4 MG ORAL TABLET 485312 WARFARIN SODIUM Inactive CLONIDINE HCL 0.1 MG ORAL TABLET 1 po bid 7 days, then 1/2 t ab po bid 7 days CLONIDINE HCL 0.1 MG ORAL TABLET 769556 CLONIDIN E HCL Inactive ALLOPURINOL 300 MG ORAL TABLET Take 1 tablet by mouth daily 2012 ALLOPURINOL 300 MG ORAL TABLET 142263 ALLOPURINOL I nactive MECLIZINE HCL 25 MG ORAL TABLET 1 po tid 3 days, then 1/2 ta b tid 3 days MECLIZINE HCL 25 MG ORAL TABLET 189155 MECLIZINE HCL Inactive AMLODIPINE BESYLATE 5 MG ORAL TABLET 1 tablet by mouth daily 201 01/20/04 AMLODIPINE BESYLATE 5 MG ORAL TABLET 864820 AMLODIPINE BESYLATE Inactive KEFLEX 500 MG ORAL CAPSULE 1 po qid K EFLEX 500 MG ORAL CAPSULE 814122 CEPHALEXIN Inactive COLCRYS 0.6 MG ORAL TABLET 1 tab qid prn gout COLCRYS 0.6 MG ORAL TABLET 441044 COLCHICINE Inactive FAMOTIDINE 20 MG ORAL TABLET by mouth twice a day 2017 FAMOTIDINE 20 MG ORAL TABLET 969143 FAMOTIDINE Inactive GLIMEPIRIDE 2 MG ORAL TABLET 1 po BID GLIMEPIRIDE 2 MG ORAL TABLET 911804 GLIMEPIRIDE Inactive LOVENOX 100 MG/ML SUBCUTANEOUS SOLUTION One injection twice a da y LOVENOX 100 MG/ML SUBCUTANEOUS SOLUTION 399211 ENOXAPAR IN SODIUM Inactive Advance Directives Directive [...] 11 .6-14.8 platelet count 256 10^3/MM^3 10*3/mm3 410-602 0929/06/29 mean corpuscular hemoglobin, RBC 28.6 pg 27. 0-31.2 mean corpuscular hemoglobin concentration, RBC 32.7 G/DL % 31.8-35.4 red blood cell distribution width 16.2 % 11 .6-14.8 platelet count 238 10^3/MM^3 10*3/mm3 903-761 4764/06/29 mean corpuscular volume, RBC 87 fL 80-97 hematocrit, blood 43.3 % 40.0-54.0 hemoglobin, blood 14.2 g/dL 14.0-18.0 erythrocyte (RBC) count 4.96 10^6/MM^3 10*6/mm3 4.50-6.5 0 leukocyte count, blood 6.4 10^3/MM^3 10*3/mm3 4.6-10.2 Lab Report: CBC, MICROALB/CREAT W/RATIO - Lab microalbumin, urine 30 mg/L 0-19 microalbumin, urine 80 mg/L 0- Lab Report: CBC, MICROALB/CREAT W/RATIO - Urinalysis microalbumin/total urine volume 30 - 300 mg/g Abnormal mg/g mg/L 0- Lab Report: HGBA1C - Chemistry hemoglobin A1C, blood, as % of total hemoglobin 7.4 % 4.3-6.0 Encounters Code Encounter Date Provider Facility CPT-46224 [id number] Vst-Est Level IV 10:52:00 STAND UP COMEDIAN Bru robinson Urbina DO [facility] CPT-66703 Level 3 Est. Patient 18:25:53 CDT Mitch luis [facility] CPT-54704 Level 3 Est. Patient 19:43:34 CDT Mitch luis [facility] CPT-66347 Level 4 Est. Patient 09:30:18 CDT Mitch luis [facility] CPT-61752 Level 3 Est. Patient 15:10:14 CDT Joe kamara [facility]-50092 Level 3 Est. Patient 15:03:46 CDT Joe kamara [facility]-71123 Level 3 Est. Patient 14:21:06 CDT Mitch luis [facility]-33293 Level 3 Est. Patient 14:52:06 CDT Joe kamara [facility]-90673 Level 3 Est. Patient 09:34:30 STAND UP COMEDIAN Mitch luis [facility]-44452 Level 3 Est. Patient 09:37:15 CDT Mitch Ambrose L ee [facility]-01150 Level 3 Est. Patient 17:01:00 STAND UP COMEDIAN Mitch luis [facility] CPT-05136 Level 3 Est. Patient 13:53:19 STAND UP COMEDIAN Mitch luis [facility] CPT-72480 Level 3 Est. Patient 19:19:37 STAND UP COMEDIAN Mitch W L janelle [facility]-98389 Level 3 Est. Patient 13:25:53 STAND UP COMEDIAN Tavo toure MD [facility]-41263 Level 3 Est. Patient 18:17:28 CDT Mitch W L janelle [facility] CPT-52946 Level 3 Est. Patient 15:22:57 CDT Mitch W L janelle [facility]-30236 Level 3 Est. Patient 18:21:50 CDT Mitch Ambrose L ee [facility]-49546 Level 3 Est. Patient 18:20:38 CDT Mitch W L ee [facility]-90597 Level 3 Est. Patient 15:37:55 CDT Mitch W L ee [facility] CPT-58286 Level 2 Est. Patient 15:54:44 CDT Carmine benton MD [facility] CPT-50215 Level 3 Est. Patient 21:46:01 STAND UP COMEDIAN Mitch luis [facility] CPT-92685 Level 3 Est. Patient 22:15:50 CDT Mitch luis [facility] CPT-47130 Level 3 Est. Patient 10:48:15 CDT Mitch luis [facility] CPT-21824 Level 3 Est. Patient 23:20:57 CDT Tavo toure MD [facility] CPT-27085 Level 3 Est. Patient 16:26:13 CDT Mitch luis [facility] Procedures Code Procedure Name Date Entry Date Standard Desc ription CPT-JTINJ Asp/Joint Injection 18:47:02 CDT CPT-57429 Venipuncture Draw Fee 09:26:17 CDT CPT-72463 PT/INR - LAB USE ONLY 13:32:49 STAND UP COMEDIAN CPT-63822 Venipuncture Draw Fee 13:32:49 STAND UP COMEDIAN CPT-40149 PT/INR - LAB USE ONLY 10:34:49 STAND UP COMEDIAN CPT-16952 Venipuncture Draw Fee 10:34:48 STAND UP COMEDIAN CPT-04438 PT/INR - LAB USE ONLY 09:22:03 STAND UP COMEDIAN CPT-42753 Venipuncture Draw Fee 09:22:02 STAND UP COMEDIAN CPT-21155 Hemoccult IFOBT - LAB USE ONLY 10:27:22 CDT CPT-51261 Venipuncture Draw Fee 08:27:08 CDT CPT-84943 Liver Profile - LAB USE ONLY 08:27:07 CDT 2 CPT-09232 Microalbumin - LAB USE ONLY 08:27:07 CDT 20 25/05/09 CPT-84020 PT/INR - LAB USE ONLY 08:27:07 CDT CPT-86042 HGBA1C - LAB USE ONLY 08:27:07 CDT CPT-15310 CBC - LAB USE ONLY 08:27:07 CDT CPT-84993 Venipuncture Draw Fee 11:09:14 CDT CPT-86258 Venipuncture Draw Fee 08:32:21 STAND UP COMEDIAN CPT-32491 Venipuncture Draw Fee 09:38:56 STAND UP COMEDIAN CPT-22104 No Charge Offi Visit 21:36:07 CDT 1 CPT-10187 Venipuncture Draw Fee 10:13:28 STAND UP COMEDIAN CPT-48290 Venipuncture Draw Fee 08:31:11 CDT CPT-34338 Aspir/Inject Med Joint 18:17:28 CDT CPT-11661 Venipuncture Draw Fee 10:13:30 CDT CPT-96111 Venipuncture Draw Fee 08:31:43 STAND UP COMEDIAN CPT-JTINJ Joint Injection 18:34:50 CDT CPT-84658 Knee 3V 12:25:09 CDT CPT-71694 Venipuncture Draw Fee 12:15:57 CDT CPT-060 Medical Surveillance Exam 21:31:43 CDT 2011 CPT-18481 Venipuncture Draw Fee 08:32:05 STAND UP COMEDIAN CPT-OV Office Visit 18:19:06 CDT
--- OUTSIDE RECORDS SUMMARY | 2020-01-18 11:54 | XMS REPORT | Clinical Summary ---
Author Author Admin, Mitch Leon Organization [facility] [employer] Address Unknown Phone Unavailable Allergies, Adverse Reactions, [...] Coronary atherosclerosis of unspecified type of vessel, [place] or graft EDEMA 782.3 Resolved Mitch Urbina [...] Obesity, unspecified CELLULITIS, GROIN, LEFT ICD-682.2 Inactive Bruc e [...] cyst, infected ICD-706.2 Inactive Mitch Ambrose Carlitos VELASQUEZ Cellulitis ICD-682.9 Inactive Mitch Urbina DO 10/23 Medication List Medication Instructions Start Date Stop Date Generic Name NDC Status Provider Patient Instruction MINOXIDIL 2.5 MG ORAL TABLET 1 tablet twice daily for high b lood pressure MINOXIDIL 79261680658 Active Mitch Urbina DO Ac tive METFORMIN HCL ER 500 MG ORAL TABLET EXTENDED RELEASE 2 4 HOUR 2 tablets by mouth twice daily METFORMIN HCL 07181721519 Active Mitch Urbina DO Active GLIMEPIRIDE 4 MG ORAL TABLET 1 tablet by mouth twice daily f or diabetes GLIMEPIRIDE 08203656930 Active Mitch Urbina DO Active GLIMEPIRIDE 2 MG ORAL TABLET 1 po BID GLIMEPI RIDE 06660582311 No Longer Active Mitch Urbina DO Active AMLODIPINE BESYLATE 5 MG ORAL TABLET 1 tablet by mouth daily AMLODIPINE BESYLATE 92323118349 Active Mitch Urbina DO Active PROVIGIL 200 MG ORAL TABLET 1/2 tab po q day MODA FINIL 64337992523 Active Renee Oconnor LPN Active FAMOTIDINE 20 MG ORAL TABLET by mouth twice a day 2017 FAMOTIDINE 95621122787 No Longer Active Mitch Urbina DO Active COLCRYS 0.6 MG ORAL TABLET 1 tab qid prn gout C OLCHICINE 87340373076 No Longer Active Mitch Urbina DO Active KEFLEX 500 MG ORAL CAPSULE 1 po qid CEPHALEXI N 72656466090 No Longer Active Mitch Urbina DO Active LOSARTAN POTASSIUM 100 MG ORAL TABLET 1 pill by mouth daily, for blood pressure LOSARTAN POTASSIUM 25592163725 Active Ana Ocampo Active AMLODIPINE BESYLATE 5 MG ORAL TABLET 1 tablet by mouth daily 201 01/20/04 AMLODIPINE BESYLATE 20360599730 No Longer Active Joe fulton APRN Active MITIGARE 0.6 MG ORAL CAPSULE 2 capsules at onset of go ut pain, then take one capsule at 1 hour if symptoms persist. COLCHICINE 59 143823141 Active Mitch Urbina DO Active COUMADIN 1 MG ORAL TABLET 2 tabs orally daily with the 5mg tab to equal 7mg daily WARFARIN SODIUM 72733396431 Active Renee Oconnor LPN Active INVOKANA 100 MG ORAL TABLET 1 tablet orally daily CANAGLIFLOZIN 49242735149 Active Renee Elvin DE LA ROSA Active MECLIZINE HCL 25 MG ORAL TABLET 1 po tid 3 days, then 1/2 ta b tid 3 days MECLIZINE HCL 29426076702 No Longer Active Corey SEGURA Active ALLOPURINOL 300 MG ORAL TABLET Take 1 tablet by mouth daily 2012 ALLOPURINOL 50626855878 No Longer Active Corey SEGURA Active CLONIDINE HCL 0.1 MG ORAL TABLET 1 po bid 7 days, then 1/2 t ab po bid 7 days CLONIDINE HCL 79186494420 No Longer Active Corey SEGURA Active COUMADIN 5 MG ORAL TABLET 1 tab PO daily WARFAR IN SODIUM 66179161598 Active Renee Oconnor LPN Active COUMADIN 4 MG ORAL TABLET 1 tablet daily WARFAR IN SODIUM 61546559665 No Longer Active Corey SEGURA Active POLYTRIM 01580-8.1 UNIT/ML-% OPHTHALMIC SOLUTION 1 rui p in affected eye every 3 hours while awake x 7 days POLYMYXIN B-TRIMETHOP RIM 53756527844 No Longer Active Corey SEGURA Active LOSARTAN POTASSIUM-HCTZ 100-12.5 MG ORAL TABLET 1 by m outh daily for high blood pressure LOSARTAN POTASSIUM-HCTZ 73540612587 No Longer A ctive Mitch Urbina DO Active LISINOPRIL-HYDROCHLOROTHIAZIDE 20-12.5 MG ORAL TABLET 1 tab by m outh daily LISINOPRIL-HYDROCHLOROTHIAZIDE 69804541211 No Longer Active Mitch Urbina DO Active LISINOPRIL 20 MG ORAL TABLET 1 tab po at HS LIS INOPRIL 56558312387 No Longer Active Mitch Urbina DO Active COUMADIN 5 MG ORAL TABLET 1 by mouth every other day 2 WARFARIN SODIUM 54336559005 No Longer Active Mitch Urbina DO Active COUMADIN 6 MG ORAL TABLET 1 by mouth every other day 2 WARFARIN SODIUM 68047910010 No Longer Active Mitch Urbina DO Active SIMVASTATIN 40 MG ORAL TABLET 1 tab daily at bedtime SIMVASTATIN 19594462231 Active Mitch Urbina DO Active SIMVASTATIN 20 MG ORAL TABLET 1 tab daily at bedtime 2 SIMVASTATIN 43721752722 No Longer Active Mitch Urbina DO Active LOVENOX 100 MG/ML SUBCUTANEOUS SOLUTION One injection twice a da y ENOXAPARIN SODIUM 29090133489 No Longer Active Carmine Yusuf MD Active JANUVIA 50 MG ORAL TABLET Take one by mouth daily SITAGLIPTIN PHOSPHATE 85903455554 Active Renee Oconnor LPN Active JANUVIA 100 MG ORAL TABLET 1/2 by mouth every day 2011 SITAGLIPTIN PHOSPHATE 66715879523 No Longer Active Bijal Segal RN Acti ve METFORMIN HCL 500 MG ORAL TABLET 2 by mouth twice daily METFORMIN HCL 90369290407 No Longer Active Renee Oconnor LPN Active COLCRYS 0.6 MG ORAL TABLET 1 po q 6 hours prn gout pain COLCHICINE 65804883580 No Longer Active Camila Reese Active LISINOPRIL 5 MG ORAL TABLET 1 by mouth every day 11/17 LISINOPRIL 83907847819 No Longer Active Nguyen Perez Active KLOR-CON 20 MEQ ORAL PACKET Take one by mouth daily 09/10/08 POTASSIUM CHLORIDE 73644713716 No Longer Active Nguyen Perez Active FUROSEMIDE 40 MG ORAL TABLET 1 by mouth daily F UROSEMIDE 29928282652 No Longer Active Nguyen Perez Active PROVIGIL 100 MG ORAL TABLET Take one by mouth daily 08/20/04 MODAFINIL 12016013609 No Longer Active Mitch Urbina DO Active BACTRIM DS 800-160 MG ORAL TABLET 1 tab by mouth twice daily 201 10/19/09 TRIMETHOPRIM-SULFAMETHOXAZOLE 90673656259 No Longer Active Elian Hays MD Active ADULT ASPIRIN LOW STRENGTH 81 MG ORAL TABLET DISINTEGR ATING 1 by mouth every daily ASPIRIN 75791846068 Active Mitch Urbina DO Ac tive METOPROLOL TARTRATE 50 MG ORAL TABLET 1 by mouth twice daily METOPROLOL TARTRATE 44509875548 Active Ana Dillard e BACTRIM DS 800-160 MG ORAL TABLET 1 tab by mouth twice daily 201 10/19/09 BACTRIM DS 800-160 MG ORAL TABLET 724608 TRIMETHOPRIM-SULFAMETHOXAZOLE Inactive PROVIGIL 100 MG ORAL TABLET Take one by mouth daily 20 08/20/04 PROVIGIL 100 MG ORAL TABLET 526588 MODAFINIL Inactive FUROSEMIDE 40 MG ORAL TABLET 1 by mouth daily FUROSEMIDE 40 MG ORAL TABLET 736009 FUROSEMIDE Inactive KLOR-CON 20 MEQ ORAL PACKET Take one by mouth daily 20 09/10/08 KLOR- CON 20 MEQ ORAL PACKET 9449374 POTASSIUM CHLORIDE Inactive LISINOPRIL 5 MG ORAL TABLET 1 by mouth every day 11/17 LISINOPRIL 5 MG ORAL TABLET 738131 LISINOPRIL Inactive COLCRYS 0.6 MG ORAL TABLET 1 po q 6 hours prn gout pain COLCRYS 0.6 MG ORAL TABLET 236207 COLCHICINE Inactive JANUVIA 100 MG ORAL TABLET 1/2 by mouth every day 2011 JANUVIA 100 MG ORAL TABLET SITAGLIPTIN PHOSPHATE Inactive SIMVASTATIN 20 MG ORAL TABLET 1 tab daily at bedtime 2 SIMVASTATIN 20 MG ORAL TABLET 048491 SIMVASTATIN Inactive COUMADIN 6 MG ORAL TABLET 1 by mouth every other day 2 COUMADIN 6 MG ORAL TABLET 586357 WARFARIN SODIUM Inactive COUMADIN 5 MG ORAL TABLET 1 by mouth every other day 2 COUMADIN 5 MG ORAL TABLET 199980 WARFARIN SODIUM Inactive LISINOPRIL 20 MG ORAL TABLET 1 tab po at HS LISINOPRIL 20 MG ORAL TABLET 935214 LISINOPRIL Inactive LISINOPRIL-HYDROCHLOROTHIAZIDE 20-12.5 MG ORAL TABLET 1 tab by m outh daily LISINOPRIL-HYDROCHLOROTHIAZIDE 20-12.5 MG ORAL TABLET 364192 LISINOPRIL-HYDROCHLOROTHIAZIDE Inactive POLYTRIM 37908-2.1 UNIT/ML-% OPHTHALMIC SOLUTION 1 rui p in affected eye every 3 hours while awake x 7 days POLYTRIM 1000 0-0.1 UNIT/ML-% OPHTHALMIC SOLUTION 827273 POLYMYXIN B-TRIMETHOPRIM Inactive COUMADIN 4 MG ORAL TABLET 1 tablet daily COUMADIN 4 MG ORAL TABLET 484771 WARFARIN SODIUM Inactive CLONIDINE HCL 0.1 MG ORAL TABLET 1 po bid 7 days, then 1/2 t ab po bid 7 days CLONIDINE HCL 0.1 MG ORAL TABLET 525956 CLONIDIN E HCL Inactive ALLOPURINOL 300 MG ORAL TABLET Take 1 tablet by mouth daily 2012 ALLOPURINOL 300 MG ORAL TABLET 748433 ALLOPURINOL I nactive MECLIZINE HCL 25 MG ORAL TABLET 1 po tid 3 days, then 1/2 ta b tid 3 days MECLIZINE HCL 25 MG ORAL TABLET 894132 MECLIZINE HCL Inactive AMLODIPINE BESYLATE 5 MG ORAL TABLET 1 tablet by mouth daily 201 01/20/04 AMLODIPINE BESYLATE 5 MG ORAL TABLET 699489 AMLODIPINE BESYLATE Inactive KEFLEX 500 MG ORAL CAPSULE 1 po qid K EFLEX 500 MG ORAL CAPSULE 711792 CEPHALEXIN Inactive COLCRYS 0.6 MG ORAL TABLET 1 tab qid prn gout COLCRYS 0.6 MG ORAL TABLET 192498 COLCHICINE Inactive FAMOTIDINE 20 MG ORAL TABLET by mouth twice a day 2017 FAMOTIDINE 20 MG ORAL TABLET 868047 FAMOTIDINE Inactive GLIMEPIRIDE 2 MG ORAL TABLET 1 po BID GLIMEPIRIDE 2 MG ORAL TABLET 737061 GLIMEPIRIDE Inactive LOVENOX 100 MG/ML SUBCUTANEOUS SOLUTION One injection twice a da y LOVENOX 100 MG/ML SUBCUTANEOUS SOLUTION 396941 ENOXAPAR IN SODIUM Inactive Advance Directives Directive [...] 11 .6-14.8 platelet count 238 10^3/MM^3 10*3/mm3 474-718 4805/03/29 leukocyte count, blood 6.7 10^3/MM^3 10*3/mm3 4.6-10.2 [...] mg/dL Encounters Code Encounter Date Provider Facility CPT-42538 [id number] Vst-Est Level IV 10:06:35 CDT Stephy Ambrose [facility]-68383 [id number] Vst-Est Level IV 10:52:00 DIRECTOR TARGETED MARKETING Stephy Ambrose [facility] CPT-35095 Level 3 Est. Patient 18:25:53 CDT Mitch luis [facility] CPT-17128 Level 3 Est. Patient 19:43:34 CDT Mitch luis [facility] CPT-74329 Level 4 Est. Patient 09:30:18 CDT Mitch luis [facility] CPT-60146 Level 3 Est. Patient 15:10:14 CDT Joe kamara Formerly named [facility] CPT-30444 Level 3 Est. Patient 15:03:46 CDT Joe kamara Formerly named [facility] CPT-20778 Level 3 Est. Patient 14:21:06 CDT Mitch luis [facility] CPT-10035 Level 3 Est. Patient 14:52:06 CDT Joe kamara Formerly named [facility] CPT-25324 Level 3 Est. Patient 09:34:30 DIRECTOR TARGETED MARKETING Mitch luis [facility] CPT-31527 Level 3 Est. Patient 09:37:15 CDT Mitch luis [facility] CPT-67086 Level 3 Est. Patient 17:01:00 DIRECTOR TARGETED MARKETING Mitch W L janelle DO [facility] CPT-49687 Level 3 Est. Patient 13:53:19 DIRECTOR TARGETED MARKETING Mitch W L ee DO [facility] CPT-95339 Level 3 Est. Patient 19:19:37 DIRECTOR TARGETED MARKETING Mitch W L janelle DO [facility] CPT-62990 Level 3 Est. Patient 13:25:53 DIRECTOR TARGETED MARKETING Tavo toure MD [facility] CPT-45220 Level 3 Est. Patient 18:17:28 CDT Mitch W L ee [facility] CPT-22384 Level 3 Est. Patient 15:22:57 CDT Mitch W L ee [facility] CPT-49855 Level 3 Est. Patient 18:21:50 CDT Mitch W L janelle [facility] CPT-27873 Level 3 Est. Patient 18:20:38 CDT Mitch W L janelle [facility] CPT-61777 Level 3 Est. Patient 15:37:55 CDT Mitch W L janelle [facility] CPT-77784 Level 2 Est. Patient 15:54:44 CDT Carmine benton MD [facility] CPT-88613 Level 3 Est. Patient 21:46:01 DIRECTOR TARGETED MARKETING Mitch luis [facility] CPT-11027 Level 3 Est. Patient 22:15:50 CDT Mitch W L janelle [facility] CPT-15220 Level 3 Est. Patient 10:48:15 CDT Mitch W L ee [facility] CPT-44879 Level 3 Est. Patient 23:20:57 CDT Tavo toure MD [facility] CPT-34660 Level 3 Est. Patient 16:26:13 CDT Mitch luis [facility] Procedures Code Procedure Name Date Entry Date Standard Desc ription CPT-JTINJ Asp/Joint Injection 18:47:02 CDT CPT-84222 Venipuncture Draw Fee 09:26:17 CDT CPT-32086 PT/INR - LAB USE ONLY 13:32:49 DIRECTOR T[employer] MARKETING CPT-84514 Venipuncture Draw Fee 13:32:49 DIRECTOR TARGETED MARKETING CPT-35575 PT/INR - LAB USE ONLY 10:34:49 DIRECTOR T[employer] MARKETING CPT-97259 Venipuncture Draw Fee 10:34:48 DIRECTOR T[employer]ED MARKETING CPT-07241 PT/INR - LAB USE ONLY 09:22:03 DIRECTOR TARGETED MARKETING CPT-81183 Venipuncture Draw Fee 09:22:02 DIRECTOR TARGETED MARKETING CPT-94977 Hemoccult IFOBT - LAB USE ONLY 10:27:22 CDT CPT-50639 Venipuncture Draw Fee 08:27:08 CDT CPT-67737 Liver Profile - LAB USE ONLY 08:27:07 CDT 2 CPT-78028 Microalbumin - LAB USE ONLY 08:27:07 CDT 20 25/05/09 CPT-94536 PT/INR - LAB USE ONLY 08:27:07 CDT CPT-47807 HGBA1C - LAB USE ONLY 08:27:07 CDT CPT-40150 CBC - LAB USE ONLY 08:27:07 CDT CPT-65879 Venipuncture Draw Fee 11:09:14 CDT CPT-73233 Venipuncture Draw Fee 08:32:21 DIRECTOR T[employer] MARKETING CPT-60624 Venipuncture Draw Fee 09:38:56 DIRECTOR T[employer] MARKETING CPT-65037 No Charge Offi Visit 21:36:07 CDT 1 CPT-36021 Venipuncture Draw Fee 10:13:28 DIRECTOR TARGETED MARKETING CPT-00709 Venipuncture Draw Fee 08:31:11 CDT CPT-95525 Aspir/Inject Med Joint 18:17:28 CDT CPT-88066 Venipuncture Draw Fee 10:13:30 CDT CPT-63863 Venipuncture Draw Fee 08:31:43 DIRECTOR TARGETED MARKETING CPT-JTINJ Joint Injection 18:34:50 CDT CPT-75659 Knee 3V 12:25:09 CDT CPT-43074 Venipuncture Draw Fee 12:15:57 CDT CPT-060 Medical Surveillance Exam 21:31:43 CDT 2011 CPT-63355 Venipuncture Draw Fee 08:32:05 DIRECTOR TARGETED MARKETING CPT-OV Office Visit 18:19:06 CDT
--- OUTSIDE RECORDS SUMMARY | 2020-01-18 11:54 | XMS REPORT | Clinical Summary ---
Author Author Admin, Mitch Leon Organization [facility] [employer] Address Unknown Phone Unavailable Allergies, Adverse Reactions, [...] atherosclerosis of unspecified type of vessel, venetie or graft EDEMA 782.3 Resolved Mitch Urbina [...] daily for high b lood pressure MINOXIDIL 89316014458 Active Mitch Urbina DO Ac tive METFORMIN HCL ER 500 MG ORAL TABLET EXTENDED RELEASE 2 4 HOUR 2 tablets by mouth twice daily METFORMIN HCL 66192487892 Active Mitch Urbina DO Active GLIMEPIRIDE 4 MG ORAL TABLET 1 tablet by mouth twice daily f or diabetes GLIMEPIRIDE 89434346237 Active Mitch Urbina DO Active GLIMEPIRIDE 2 MG ORAL TABLET 1 po BID GLIMEPI RIDE 42717779612 No Longer Active Mitch Urbina DO Active AMLODIPINE BESYLATE 5 MG ORAL TABLET 1 tablet by mouth daily AMLODIPINE BESYLATE 33810761802 Active Mitch Urbina DO Active PROVIGIL 200 MG ORAL TABLET 1/2 tab po q day MODA FINIL 44854983801 Active Renee Oconnor LPN Active FAMOTIDINE 20 MG ORAL TABLET by mouth twice a day 2017 FAMOTIDINE 68481040275 No Longer Active Mitch Urbina DO Active COLCRYS 0.6 MG ORAL TABLET 1 tab qid prn gout C OLCHICINE 57316818347 No Longer Active Mitch Urbina DO Active KEFLEX 500 MG ORAL CAPSULE 1 po qid CEPHALEXI N 62160120707 No Longer Active Mitch Urbina DO Active LOSARTAN POTASSIUM 100 MG ORAL TABLET 1 pill by mouth daily, for blood pressure LOSARTAN POTASSIUM 75146482152 Active Ana Ocampo Active AMLODIPINE BESYLATE 5 MG ORAL TABLET 1 tablet by mouth daily 201 01/20/04 AMLODIPINE BESYLATE 62845823798 No Longer Active Joe fulton APRN Active MITIGARE 0.6 MG ORAL CAPSULE 2 capsules at onset of go ut pain, then take one capsule at 1 hour if symptoms persist. COLCHICINE 59 733049039 Active Mitch Urbina DO Active COUMADIN 1 MG ORAL TABLET 2 tabs orally daily with the 5mg tab to equal 7mg daily WARFARIN SODIUM 85301116369 Active Renee Oconnor LPN Active INVOKANA 100 MG ORAL TABLET 1 tablet orally daily CANAGLIFLOZIN 80975822274 Active Renee Elvin DE LA ROSA Active MECLIZINE HCL 25 MG ORAL TABLET 1 po tid 3 days, then 1/2 ta b tid 3 days MECLIZINE HCL 25899102792 No Longer Active Corey SEGURA Active ALLOPURINOL 300 MG ORAL TABLET Take 1 tablet by mouth daily 2012 ALLOPURINOL 76194575645 No Longer Active Corey SEGURA Active CLONIDINE HCL 0.1 MG ORAL TABLET 1 po bid 7 days, then 1/2 t ab po bid 7 days CLONIDINE HCL 95749021726 No Longer Active Corey SEGURA Active COUMADIN 5 MG ORAL TABLET 1 tab PO daily WARFAR IN SODIUM 44761651496 Active Renee Oconnor LPN Active COUMADIN 4 MG ORAL TABLET 1 tablet daily WARFAR IN SODIUM 21654992926 No Longer Active Corey SEGURA Active POLYTRIM 88926-0.1 UNIT/ML-% OPHTHALMIC SOLUTION 1 rui p in affected eye every 3 hours while awake x 7 days POLYMYXIN B-TRIMETHOP RIM 24717793859 No Longer Active Corey SEGURA Active LOSARTAN POTASSIUM-HCTZ 100-12.5 MG ORAL TABLET 1 by m outh daily for high blood pressure LOSARTAN POTASSIUM-HCTZ 80515378883 No Longer A ctive Mitch Urbina DO Active LISINOPRIL-HYDROCHLOROTHIAZIDE 20-12.5 MG ORAL TABLET 1 tab by m outh daily LISINOPRIL-HYDROCHLOROTHIAZIDE 56972489404 No Longer Active Mitch Urbina DO Active LISINOPRIL 20 MG ORAL TABLET 1 tab po at HS LIS INOPRIL 05115001803 No Longer Active Mitch Urbina DO Active COUMADIN 5 MG ORAL TABLET 1 by mouth every other day 2 WARFARIN SODIUM 44549504041 No Longer Active Mitch Urbina DO Active COUMADIN 6 MG ORAL TABLET 1 by mouth every other day 2 WARFARIN SODIUM 02178413664 No Longer Active Mitch Urbina DO Active SIMVASTATIN 40 MG ORAL TABLET 1 tab daily at bedtime SIMVASTATIN 00665366203 Active Mitch Urbina DO Active SIMVASTATIN 20 MG ORAL TABLET 1 tab daily at bedtime 2 SIMVASTATIN 87232226241 No Longer Active Mitch Urbina DO Active LOVENOX 100 MG/ML SUBCUTANEOUS SOLUTION One injection twice a da y ENOXAPARIN SODIUM 04819632075 No Longer Active Carmine Yusuf MD Active JANUVIA 50 MG ORAL TABLET Take one by mouth daily SITAGLIPTIN PHOSPHATE 58419502286 Active Renee Oconnor LPN Active JANUVIA 100 MG ORAL TABLET 1/2 by mouth every day 2011 SITAGLIPTIN PHOSPHATE 89511936869 No Longer Active Bijal Segal RN Acti ve METFORMIN HCL 500 MG ORAL TABLET 2 by mouth twice daily METFORMIN HCL 89373705660 No Longer Active Renee Oconnor LPN Active COLCRYS 0.6 MG ORAL TABLET 1 po q 6 hours prn gout pain COLCHICINE 28344637078 No Longer Active Camila Reese Active LISINOPRIL 5 MG ORAL TABLET 1 by mouth every day 11/17 LISINOPRIL 96739199116 No Longer Active Nguyen Perez Active KLOR-CON 20 MEQ ORAL PACKET Take one by mouth daily 09/10/08 POTASSIUM CHLORIDE 27415934600 No Longer Active Nguyen Perez Active FUROSEMIDE 40 MG ORAL TABLET 1 by mouth daily F UROSEMIDE 49408939010 No Longer Active Nguyen Perez Active PROVIGIL 100 MG ORAL TABLET Take one by mouth daily 08/20/04 MODAFINIL 05575693094 No Longer Active Mitch Urbina DO Active BACTRIM DS 800-160 MG ORAL TABLET 1 tab by mouth twice daily 201 10/19/09 TRIMETHOPRIM-SULFAMETHOXAZOLE 10825823040 No Longer Active Elian Hays MD Active ADULT ASPIRIN LOW STRENGTH 81 MG ORAL TABLET DISINTEGR ATING 1 by mouth every daily ASPIRIN 15571932676 Active Mitch Urbina DO Ac tive METOPROLOL TARTRATE 50 MG ORAL TABLET 1 by mouth twice daily METOPROLOL TARTRATE 54707776719 Active Ana Dillard e BACTRIM DS 800-160 MG ORAL TABLET 1 tab by mouth twice daily 201 10/19/09 BACTRIM DS 800-160 MG ORAL TABLET 027300 TRIMETHOPRIM-SULFAMETHOXAZOLE Inactive PROVIGIL 100 MG ORAL TABLET Take one by mouth daily 20 08/20/04 PROVIGIL 100 MG ORAL TABLET 059430 MODAFINIL Inactive FUROSEMIDE 40 MG ORAL TABLET 1 by mouth daily FUROSEMIDE 40 MG ORAL TABLET 419771 FUROSEMIDE Inactive KLOR-CON 20 MEQ ORAL PACKET Take one by mouth daily 20 09/10/08 KLOR- CON 20 MEQ ORAL PACKET 8183249 POTASSIUM CHLORIDE Inactive LISINOPRIL 5 MG ORAL TABLET 1 by mouth every day 11/17 LISINOPRIL 5 MG ORAL TABLET 281510 LISINOPRIL Inactive COLCRYS 0.6 MG ORAL TABLET 1 po q 6 hours prn gout pain COLCRYS 0.6 MG ORAL TABLET 417352 COLCHICINE Inactive JANUVIA 100 MG ORAL TABLET 1/2 by mouth every day 2011 JANUVIA 100 MG ORAL TABLET SITAGLIPTIN PHOSPHATE Inactive SIMVASTATIN 20 MG ORAL TABLET 1 tab daily at bedtime 2 SIMVASTATIN 20 MG ORAL TABLET 063259 SIMVASTATIN Inactive COUMADIN 6 MG ORAL TABLET 1 by mouth every other day 2 COUMADIN 6 MG ORAL TABLET 470127 WARFARIN SODIUM Inactive COUMADIN 5 MG ORAL TABLET 1 by mouth every other day 2 COUMADIN 5 MG ORAL TABLET 179641 WARFARIN SODIUM Inactive LISINOPRIL 20 MG ORAL TABLET 1 tab po at HS LISINOPRIL 20 MG ORAL TABLET 342403 LISINOPRIL Inactive LISINOPRIL-HYDROCHLOROTHIAZIDE 20-12.5 MG ORAL TABLET 1 tab by m outh daily LISINOPRIL-HYDROCHLOROTHIAZIDE 20-12.5 MG ORAL TABLET 334921 LISINOPRIL-HYDROCHLOROTHIAZIDE Inactive POLYTRIM 95499-1.1 UNIT/ML-% OPHTHALMIC SOLUTION 1 rui p in affected eye every 3 hours while awake x 7 days POLYTRIM 1000 0-0.1 UNIT/ML-% OPHTHALMIC SOLUTION 524982 POLYMYXIN B-TRIMETHOPRIM Inactive COUMADIN 4 MG ORAL TABLET 1 tablet daily COUMADIN 4 MG ORAL TABLET 562224 WARFARIN SODIUM Inactive CLONIDINE HCL 0.1 MG ORAL TABLET 1 po bid 7 days, then 1/2 t ab po bid 7 days CLONIDINE HCL 0.1 MG ORAL TABLET 662198 CLONIDIN E HCL Inactive ALLOPURINOL 300 MG ORAL TABLET Take 1 tablet by mouth daily 2012 ALLOPURINOL 300 MG ORAL TABLET 457833 ALLOPURINOL I nactive MECLIZINE HCL 25 MG ORAL TABLET 1 po tid 3 days, then 1/2 ta b tid 3 days MECLIZINE HCL 25 MG ORAL TABLET 537987 MECLIZINE HCL Inactive AMLODIPINE BESYLATE 5 MG ORAL TABLET 1 tablet by mouth daily 201 01/20/04 AMLODIPINE BESYLATE 5 MG ORAL TABLET 614811 AMLODIPINE BESYLATE Inactive KEFLEX 500 MG ORAL CAPSULE 1 po qid K EFLEX 500 MG ORAL CAPSULE 135722 CEPHALEXIN Inactive COLCRYS 0.6 MG ORAL TABLET 1 tab qid prn gout COLCRYS 0.6 MG ORAL TABLET 175875 COLCHICINE Inactive FAMOTIDINE 20 MG ORAL TABLET by mouth twice a day 2017 FAMOTIDINE 20 MG ORAL TABLET 100799 FAMOTIDINE Inactive GLIMEPIRIDE 2 MG ORAL TABLET 1 po BID GLIMEPIRIDE 2 MG ORAL TABLET 684213 GLIMEPIRIDE Inactive LOVENOX 100 MG/ML SUBCUTANEOUS SOLUTION One injection twice a da y LOVENOX 100 MG/ML SUBCUTANEOUS SOLUTION 697965 ENOXAPAR IN SODIUM Inactive Advance Directives Directive [...] 11 .6-14.8 platelet count 238 10^3/MM^3 10*3/mm3 070-632 7414/03/29 leukocyte count, blood 6.7 10^3/MM^3 10*3/mm3 4.6-10.2 [...] mg/dL Encounters Code Encounter Date Provider Facility CPT-61893 [id number] Vst-Est Level IV 10:06:35 CDT Stephy Ambrose [facility]-11264 [id number] Vst-Est Level IV 10:52:00 [employer] Stephy Ambrose [facility] CPT-69918 Level 3 Est. Patient 18:25:53 CDT Mitch luis [facility] CPT-02264 Level 3 Est. Patient 19:43:34 CDT Mitch luis [facility] CPT-95563 Level 4 Est. Patient 09:30:18 CDT Mitch luis [facility] CPT-50067 Level 3 Est. Patient 15:10:14 CDT Joe kamara [facility] [place] CPT-75693 Level 3 Est. Patient 15:03:46 CDT Joe kamara [facility] CPT-51177 Level 3 Est. Patient 14:21:06 CDT Mitch luis [facility] CPT-20277 Level 3 Est. Patient 14:52:06 CDT Joe kamara [facility] [place] CPT-10532 Level 3 Est. Patient 09:34:30 [employer] Mitch luis [facility] CPT-44841 Level 3 Est. Patient 09:37:15 CDT Mitch luis [facility] CPT-38406 Level 3 Est. Patient 17:01:00 [employer] Mitch [facility] L janelle [facility] CPT-37226 Level 3 Est. Patient 13:53:19 [employer] Mitch W L ee [facility] CPT-27472 Level 3 Est. Patient 19:19:37 [employer] Mitch W L janelle [facility] CPT-85498 Level 3 Est. Patient 13:25:53 [employer] Tavo toure [facility] CPT-66899 Level 3 Est. Patient 18:17:28 CDT Mitch W L ee [facility] CPT-71144 Level 3 Est. Patient 15:22:57 CDT Mitch W L ee [facility] CPT-39243 Level 3 Est. Patient 18:21:50 CDT Mitch W L janelle [facility] CPT-54019 Level 3 Est. Patient 18:20:38 CDT Mitch W L janelle [facility] CPT-88631 Level 3 Est. Patient 15:37:55 CDT Mitch W L janelle [facility] CPT-24791 Level 2 Est. Patient 15:54:44 CDT Carmine benton MD [facility] CPT-79045 Level 3 Est. Patient 21:46:01 [employer] Mitch luis [facility] CPT-65965 Level 3 Est. Patient 22:15:50 CDT Mitch W L janelle [facility] CPT-01732 Level 3 Est. Patient 10:48:15 CDT Mitch W L ee [facility] CPT-86472 Level 3 Est. Patient 23:20:57 CDT Tavo toure [facility] CPT-91134 Level 3 Est. Patient 16:26:13 CDT Mitch luis [facility] Procedures Code Procedure Name Date Entry Date Standard Desc ription CPT-JTINJ Asp/Joint Injection 18:47:02 CDT CPT-63556 Venipuncture Draw Fee 09:26:17 CDT CPT-86837 PT/INR - LAB USE ONLY 13:32:49 [employer] CPT-92569 Venipuncture Draw Fee 13:32:49 [employer] CPT-40007 PT/INR - LAB USE ONLY 10:34:49 [employer] CPT-36513 Venipuncture Draw Fee 10:34:48 [employer] CPT-67688 PT/INR - LAB USE ONLY 09:22:03 [employer] CPT-57203 Venipuncture Draw Fee 09:22:02 [employer] CPT-24037 Hemoccult IFOBT - LAB USE ONLY 10:27:22 CDT CPT-64858 Venipuncture Draw Fee 08:27:08 CDT CPT-09955 Liver Profile - LAB USE ONLY 08:27:07 CDT 2 CPT-85955 Microalbumin - LAB USE ONLY 08:27:07 CDT 20 25/05/09 CPT-33862 PT/INR - LAB USE ONLY 08:27:07 CDT CPT-08594 HGBA1C - LAB USE ONLY 08:27:07 CDT CPT-02226 CBC - LAB USE ONLY 08:27:07 CDT CPT-69895 Venipuncture Draw Fee 11:09:14 CDT CPT-44243 Venipuncture Draw Fee 08:32:21 [employer] CPT-29479 Venipuncture Draw Fee 09:38:56 [employer] CPT-70881 No Charge Offi Visit 21:36:07 CDT 1 CPT-25461 Venipuncture Draw Fee 10:13:28 [employer] CPT-95683 Venipuncture Draw Fee 08:31:11 CDT CPT-60124 Aspir/Inject Med Joint 18:17:28 CDT CPT-00356 Venipuncture Draw Fee 10:13:30 CDT CPT-09147 Venipuncture Draw Fee 08:31:43 [employer] CPT-JTINJ Joint Injection 18:34:50 CDT CPT-52267 Knee 3V 12:25:09 CDT CPT-57170 Venipuncture Draw Fee 12:15:57 CDT CPT-060 Medical Surveillance Exam 21:31:43 CDT 2011 CPT-81764 Venipuncture Draw Fee 08:32:05 [employer] CPT-OV Office Visit 18:19:06 CDT
--- OUTSIDE RECORDS SUMMARY | 2020-01-18 11:54 | XMS REPORT | Clinical Summary ---
Author Author Admin, Mitch Leon Organization [facility] [employer] Address Unknown Phone Unavailable Allergies, Adverse Reactions, [...] Coronary atherosclerosis of unspecified type of vessel, [place] or graft EDEMA 782.3 Resolved Mitch Urbina [...] Degenerative joint disease, knee, left 715.96 Active Mtich Urbina DO Osteoarthrosis, unspecified whether generalized or [...] daily for high b lood pressure MINOXIDIL 99793092661 Active Mitch Urbina DO Ac tive METFORMIN HCL ER 500 MG ORAL TABLET EXTENDED RELEASE 2 4 HOUR 2 tablets by mouth twice daily METFORMIN HCL 16119553342 Active Mitch Urbina DO Active GLIMEPIRIDE 4 MG ORAL TABLET 1 tablet by mouth twice daily f or diabetes GLIMEPIRIDE 87823989941 Active Mitch Urbina DO Active GLIMEPIRIDE 2 MG ORAL TABLET 1 po BID GLIMEPI RIDE 35961973454 No Longer Active Mitch Urbina DO Active AMLODIPINE BESYLATE 5 MG ORAL TABLET 1 tablet by mouth daily AMLODIPINE BESYLATE 57845811144 Active Mitch Urbina DO Active PROVIGIL 200 MG ORAL TABLET 1/2 tab po q day MODA FINIL 50346679163 Active Renee Oconnor LPN Active FAMOTIDINE 20 MG ORAL TABLET by mouth twice a day 2017 FAMOTIDINE 74838521437 No Longer Active Mitch Urbina DO Active COLCRYS 0.6 MG ORAL TABLET 1 tab qid prn gout C OLCHICINE 62722107303 No Longer Active Mitch Urbina DO Active KEFLEX 500 MG ORAL CAPSULE 1 po qid CEPHALEXI N 03344140473 No Longer Active Mitch Urbina DO Active LOSARTAN POTASSIUM 100 MG ORAL TABLET 1 pill by mouth daily, for blood pressure LOSARTAN POTASSIUM 41539621228 Active Ana Ocampo Active AMLODIPINE BESYLATE 5 MG ORAL TABLET 1 tablet by mouth daily 201 01/20/04 AMLODIPINE BESYLATE 99644386838 No Longer Active Joe fulton APRN Active MITIGARE 0.6 MG ORAL CAPSULE 2 capsules at onset of go ut pain, then take one capsule at 1 hour if symptoms persist. COLCHICINE 59 411206753 Active Mitch Urbina DO Active COUMADIN 1 MG ORAL TABLET 2 tabs orally daily with the 5mg tab to equal 7mg daily WARFARIN SODIUM 62934582420 Active Renee Oconnor LPN Active INVOKANA 100 MG ORAL TABLET 1 tablet orally daily CANAGLIFLOZIN 22133306726 Active Renee Elvin DE LA ROSA Active MECLIZINE HCL 25 MG ORAL TABLET 1 po tid 3 days, then 1/2 ta b tid 3 days MECLIZINE HCL 29312992994 No Longer Active Corey SEGURA Active ALLOPURINOL 300 MG ORAL TABLET Take 1 tablet by mouth daily 2012 ALLOPURINOL 82933546211 No Longer Active Corey SEGURA Active CLONIDINE HCL 0.1 MG ORAL TABLET 1 po bid 7 days, then 1/2 t ab po bid 7 days CLONIDINE HCL 18289635619 No Longer Active Corey SEGURA Active COUMADIN 5 MG ORAL TABLET 1 tab PO daily WARFAR IN SODIUM 29822029633 Active Renee Oconnor LPN Active COUMADIN 4 MG ORAL TABLET 1 tablet daily WARFAR IN SODIUM 97605483566 No Longer Active Corey SEGURA Active POLYTRIM 00539-1.1 UNIT/ML-% OPHTHALMIC SOLUTION 1 rui p in affected eye every 3 hours while awake x 7 days POLYMYXIN B-TRIMETHOP RIM 27571146148 No Longer Active Corey SEGURA Active LOSARTAN POTASSIUM-HCTZ 100-12.5 MG ORAL TABLET 1 by m outh daily for high blood pressure LOSARTAN POTASSIUM-HCTZ 84792377430 No Longer A ctive Mitch Urbina DO Active LISINOPRIL-HYDROCHLOROTHIAZIDE 20-12.5 MG ORAL TABLET 1 tab by m outh daily LISINOPRIL-HYDROCHLOROTHIAZIDE 42307529161 No Longer Active Mitch Urbina DO Active LISINOPRIL 20 MG ORAL TABLET 1 tab po at HS LIS INOPRIL 35607375450 No Longer Active Mitch Urbina DO Active COUMADIN 5 MG ORAL TABLET 1 by mouth every other day 2 WARFARIN SODIUM 84784312095 No Longer Active Mitch Urbina DO Active COUMADIN 6 MG ORAL TABLET 1 by mouth every other day 2 WARFARIN SODIUM 01387380025 No Longer Active Mitch Urbina DO Active SIMVASTATIN 40 MG ORAL TABLET 1 tab daily at bedtime SIMVASTATIN 97013916195 Active Mitch Urbina DO Active SIMVASTATIN 20 MG ORAL TABLET 1 tab daily at bedtime 2 SIMVASTATIN 69431364347 No Longer Active Mitch Urbina DO Active LOVENOX 100 MG/ML SUBCUTANEOUS SOLUTION One injection twice a da y ENOXAPARIN SODIUM 80622777009 No Longer Active Carmine Yusuf MD Active JANUVIA 50 MG ORAL TABLET Take one by mouth daily SITAGLIPTIN PHOSPHATE 11010702581 Active Renee Oconnor LPN Active JANUVIA 100 MG ORAL TABLET 1/2 by mouth every day 2011 SITAGLIPTIN PHOSPHATE 67301933036 No Longer Active Bijal Segal RN Acti ve METFORMIN HCL 500 MG ORAL TABLET 2 by mouth twice daily METFORMIN HCL 54094988522 No Longer Active Renee Oconnor LPN Active COLCRYS 0.6 MG ORAL TABLET 1 po q 6 hours prn gout pain COLCHICINE 54658715605 No Longer Active Camila Reese Active LISINOPRIL 5 MG ORAL TABLET 1 by mouth every day 11/17 LISINOPRIL 04301873879 No Longer Active Nguyen Perez Active KLOR-CON 20 MEQ ORAL PACKET Take one by mouth daily 09/10/08 POTASSIUM CHLORIDE 14517709018 No Longer Active Nguyen Perez Active FUROSEMIDE 40 MG ORAL TABLET 1 by mouth daily F UROSEMIDE 97208533630 No Longer Active Nguyen Perez Active PROVIGIL 100 MG ORAL TABLET Take one by mouth daily 08/20/04 MODAFINIL 41098057603 No Longer Active Mitch Urbina DO Active BACTRIM DS 800-160 MG ORAL TABLET 1 tab by mouth twice daily 201 10/19/09 TRIMETHOPRIM-SULFAMETHOXAZOLE 57149826806 No Longer Active Elian Hays MD Active ADULT ASPIRIN LOW STRENGTH 81 MG ORAL TABLET DISINTEGR ATING 1 by mouth every daily ASPIRIN 85289669699 Active Mitch Urbina DO Ac tive METOPROLOL TARTRATE 50 MG ORAL TABLET 1 by mouth twice daily METOPROLOL TARTRATE 58330495243 Active Ana Dillard e BACTRIM DS 800-160 MG ORAL TABLET 1 tab by mouth twice daily 201 10/19/09 BACTRIM DS 800-160 MG ORAL TABLET 796002 TRIMETHOPRIM-SULFAMETHOXAZOLE Inactive PROVIGIL 100 MG ORAL TABLET Take one by mouth daily 20 08/20/04 PROVIGIL 100 MG ORAL TABLET 459250 MODAFINIL Inactive FUROSEMIDE 40 MG ORAL TABLET 1 by mouth daily FUROSEMIDE 40 MG ORAL TABLET 890759 FUROSEMIDE Inactive KLOR-CON 20 MEQ ORAL PACKET Take one by mouth daily 20 09/10/08 KLOR- CON 20 MEQ ORAL PACKET 0431586 POTASSIUM CHLORIDE Inactive LISINOPRIL 5 MG ORAL TABLET 1 by mouth every day 11/17 LISINOPRIL 5 MG ORAL TABLET 978414 LISINOPRIL Inactive COLCRYS 0.6 MG ORAL TABLET 1 po q 6 hours prn gout pain COLCRYS 0.6 MG ORAL TABLET 169575 COLCHICINE Inactive JANUVIA 100 MG ORAL TABLET 1/2 by mouth every day 2011 JANUVIA 100 MG ORAL TABLET SITAGLIPTIN PHOSPHATE Inactive SIMVASTATIN 20 MG ORAL TABLET 1 tab daily at bedtime 2 SIMVASTATIN 20 MG ORAL TABLET 085362 SIMVASTATIN Inactive COUMADIN 6 MG ORAL TABLET 1 by mouth every other day 2 COUMADIN 6 MG ORAL TABLET 324200 WARFARIN SODIUM Inactive COUMADIN 5 MG ORAL TABLET 1 by mouth every other day 2 COUMADIN 5 MG ORAL TABLET 767464 WARFARIN SODIUM Inactive LISINOPRIL 20 MG ORAL TABLET 1 tab po at HS LISINOPRIL 20 MG ORAL TABLET 600852 LISINOPRIL Inactive LISINOPRIL-HYDROCHLOROTHIAZIDE 20-12.5 MG ORAL TABLET 1 tab by m outh daily LISINOPRIL-HYDROCHLOROTHIAZIDE 20-12.5 MG ORAL TABLET 642908 LISINOPRIL-HYDROCHLOROTHIAZIDE Inactive POLYTRIM 70146-2.1 UNIT/ML-% OPHTHALMIC SOLUTION 1 rui p in affected eye every 3 hours while awake x 7 days POLYTRIM 1000 0-0.1 UNIT/ML-% OPHTHALMIC SOLUTION 060394 POLYMYXIN B-TRIMETHOPRIM Inactive COUMADIN 4 MG ORAL TABLET 1 tablet daily COUMADIN 4 MG ORAL TABLET 453392 WARFARIN SODIUM Inactive CLONIDINE HCL 0.1 MG ORAL TABLET 1 po bid 7 days, then 1/2 t ab po bid 7 days CLONIDINE HCL 0.1 MG ORAL TABLET 718669 CLONIDIN E HCL Inactive ALLOPURINOL 300 MG ORAL TABLET Take 1 tablet by mouth daily 2012 ALLOPURINOL 300 MG ORAL TABLET 453625 ALLOPURINOL I nactive MECLIZINE HCL 25 MG ORAL TABLET 1 po tid 3 days, then 1/2 ta b tid 3 days MECLIZINE HCL 25 MG ORAL TABLET 864102 MECLIZINE HCL Inactive AMLODIPINE BESYLATE 5 MG ORAL TABLET 1 tablet by mouth daily 201 01/20/04 AMLODIPINE BESYLATE 5 MG ORAL TABLET 563601 AMLODIPINE BESYLATE Inactive KEFLEX 500 MG ORAL CAPSULE 1 po qid K EFLEX 500 MG ORAL CAPSULE 540739 CEPHALEXIN Inactive COLCRYS 0.6 MG ORAL TABLET 1 tab qid prn gout COLCRYS 0.6 MG ORAL TABLET 523746 COLCHICINE Inactive FAMOTIDINE 20 MG ORAL TABLET by mouth twice a day 2017 FAMOTIDINE 20 MG ORAL TABLET 317306 FAMOTIDINE Inactive GLIMEPIRIDE 2 MG ORAL TABLET 1 po BID GLIMEPIRIDE 2 MG ORAL TABLET 354920 GLIMEPIRIDE Inactive LOVENOX 100 MG/ML SUBCUTANEOUS SOLUTION One injection twice a da y LOVENOX 100 MG/ML SUBCUTANEOUS SOLUTION 493048 ENOXAPAR IN SODIUM Inactive Advance Directives Directive [...] 11 .6-14.8 platelet count 238 10^3/MM^3 10*3/mm3 635-331 5794/03/29 leukocyte count, blood 6.7 10^3/MM^3 10*3/mm3 4.6-10.2 [...] mg/dL Encounters Code Encounter Date Provider Facility CPT-59130 [id number] Vst-Est Level IV 10:06:35 CDT Stephy Ambrose [facility]-94591 [id number] Vst-Est Level IV 10:52:00 [employer] Stephy Ambrose [facility] CPT-31985 Level 3 Est. Patient 18:25:53 CDT Mitch luis [facility] CPT-05597 Level 3 Est. Patient 19:43:34 CDT Mitch luis [facility] CPT-49316 Level 4 Est. Patient 09:30:18 CDT Mitch luis [facility] CPT-92819 Level 3 Est. Patient 15:10:14 CDT [facility] CPT-28721 Level 3 Est. Patient 15:03:46 CDT [facility] CPT-73541 Level 3 Est. Patient 14:21:06 CDT Mitch luis [facility] CPT-38764 Level 3 Est. Patient 14:52:06 CDT [facility] CPT-62539 Level 3 Est. Patient 09:34:30 [employer] Mitch luis [facility] CPT-02388 Level 3 Est. Patient 09:37:15 CDT Mitch luis [facility] CPT-68742 Level 3 Est. Patient 17:01:00 [employer] Mitch W L janelle DO [facility] CPT-58027 Level 3 Est. Patient 13:53:19 [employer] Mitch W L ee DO [facility] CPT-65356 Level 3 Est. Patient 19:19:37 [employer] Mitch W L janelle DO [facility] CPT-70625 Level 3 Est. Patient 13:25:53 [employer] Tavo toure MD [facility] CPT-98226 Level 3 Est. Patient 18:17:28 CDT Mitch W L ee [facility] CPT-19312 Level 3 Est. Patient 15:22:57 CDT Mitch W L ee [facility] CPT-22482 Level 3 Est. Patient 18:21:50 CDT Mitch W L janelle [facility] CPT-82548 Level 3 Est. Patient 18:20:38 CDT Mitch W L janelle [facility] CPT-49849 Level 3 Est. Patient 15:37:55 CDT Mitch W L janelle [facility] CPT-16896 Level 2 Est. Patient 15:54:44 CDT Carmine benton MD [facility] CPT-52395 Level 3 Est. Patient 21:46:01 [employer] Mitch luis [facility] CPT-06203 Level 3 Est. Patient 22:15:50 CDT Mitch W L janelle [facility] CPT-04083 Level 3 Est. Patient 10:48:15 CDT Mitch W L ee [facility] CPT-20702 Level 3 Est. Patient 23:20:57 CDT Tavo toure MD [facility] CPT-99794 Level 3 Est. Patient 16:26:13 CDT Mitch luis [facility] Procedures Code Procedure Name Date Entry Date Standard Desc ription CPT-JTINJ Asp/Joint Injection 18:47:02 CDT CPT-16703 Venipuncture Draw Fee 09:26:17 CDT CPT-92350 PT/INR - LAB USE ONLY 13:32:49 [employer] CPT-37693 Venipuncture Draw Fee 13:32:49 [employer] CPT-45585 PT/INR - LAB USE ONLY 10:34:49 [employer] CPT-59487 Venipuncture Draw Fee 10:34:48 [employer] CPT-13289 PT/INR - LAB USE ONLY 09:22:03 [employer] CPT-35826 Venipuncture Draw Fee 09:22:02 [employer] CPT-25868 Hemoccult IFOBT - LAB USE ONLY 10:27:22 CDT CPT-48406 Venipuncture Draw Fee 08:27:08 CDT CPT-44342 Liver Profile - LAB USE ONLY 08:27:07 CDT 2 CPT-82786 Microalbumin - LAB USE ONLY 08:27:07 CDT 20 25/05/09 CPT-29342 PT/INR - LAB USE ONLY 08:27:07 CDT CPT-91354 HGBA1C - LAB USE ONLY 08:27:07 CDT CPT-27730 CBC - LAB USE ONLY 08:27:07 CDT CPT-84673 Venipuncture Draw Fee 11:09:14 CDT CPT-53215 Venipuncture Draw Fee 08:32:21 [employer] CPT-12629 Venipuncture Draw Fee 09:38:56 [employer] CPT-72298 No Charge Offi Visit 21:36:07 CDT 1 CPT-43352 Venipuncture Draw Fee 10:13:28 [employer] CPT-92240 Venipuncture Draw Fee 08:31:11 CDT CPT-15281 Aspir/Inject Med Joint 18:17:28 CDT CPT-36046 Venipuncture Draw Fee 10:13:30 CDT CPT-51488 Venipuncture Draw Fee 08:31:43 [employer] CPT-JTINJ Joint Injection 18:34:50 CDT CPT-08314 Knee 3V 12:25:09 CDT CPT-36752 Venipuncture Draw Fee 12:15:57 CDT CPT-060 Medical Surveillance Exam 21:31:43 CDT 2011 CPT-09546 Venipuncture Draw Fee 08:32:05 [employer] CPT-OV Office Visit 18:19:06 CDT
--- OUTSIDE RECORDS SUMMARY | 2020-01-18 11:55 | XMS REPORT | Clinical Summary ---
Author Author Admin, Mitch Leon Organization [facility] Address Unknown Phone Unavailable Allergies, Adverse Reactions, [...] Coronary atherosclerosis of unspecified type of vessel, [place] or graft EDEMA 782.3 Resolved Mitch Urbina [...] daily for high b lood pressure MINOXIDIL 11654027374 Active Mitch Urbina DO Ac tive METFORMIN HCL ER 500 MG ORAL TABLET EXTENDED RELEASE 2 4 HOUR 2 tablets by mouth twice daily METFORMIN HCL 22050481768 Active Mitch Urbina Active GLIMEPIRIDE 4 MG ORAL TABLET 1 tablet by mouth twice daily f or diabetes GLIMEPIRIDE 41182282669 Active Mitch Arnol Urbina Active GLIMEPIRIDE 2 MG ORAL TABLET 1 po BID GLIMEPI RIDE 20168232711 No Longer Active Mitch Urbina DO Active AMLODIPINE BESYLATE 5 MG ORAL TABLET 1 tablet by mouth daily AMLODIPINE BESYLATE 80857795394 Active Mitch Urbina DO Active PROVIGIL 200 MG ORAL TABLET 1/2 tab po q day MODA FINIL 92097437024 Active Renee Oconnor LPN Active FAMOTIDINE 20 MG ORAL TABLET by mouth twice a day 2017 FAMOTIDINE 89268858199 No Longer Active Mitch Urbina DO Active COLCRYS 0.6 MG ORAL TABLET 1 tab qid prn gout C OLCHICINE 41680259389 No Longer Active Mitch Urbina DO Active KEFLEX 500 MG ORAL CAPSULE 1 po qid CEPHALEXI N 15253186534 No Longer Active Mitch Urbina DO Active LOSARTAN POTASSIUM 100 MG ORAL TABLET 1 pill by mouth daily, for blood pressure LOSARTAN POTASSIUM 35671497912 Active Ana Ocampo Active AMLODIPINE BESYLATE 5 MG ORAL TABLET 1 tablet by mouth daily 201 01/20/04 AMLODIPINE BESYLATE 08195723206 No Longer Active Jillina Fra donaldo FOAM RUBBER MIXER Active MITIGARE 0.6 MG ORAL CAPSULE 2 capsules at onset of go ut pain, then take one capsule at 1 hour if symptoms persist. COLCHICINE 59 142398366 Active Mitch Urbina DO Active COUMADIN 1 MG ORAL TABLET 2 tabs orally daily with the 5mg tab to equal 7mg daily WARFARIN SODIUM 84625706574 Active Renee Oconnor LPN Active INVOKANA 100 MG ORAL TABLET 1 tablet orally daily CANAGLIFLOZIN 37447491992 Active Renee Oconnoreder BURNETTN Active MECLIZINE HCL 25 MG ORAL TABLET 1 po tid 3 days, then 1/2 ta b tid 3 days MECLIZINE HCL 10541191926 No Longer Active Corey SEGURA Active ALLOPURINOL 300 MG ORAL TABLET Take 1 tablet by mouth daily 2012 ALLOPURINOL 66148277057 No Longer Active Corey SEGURA Active CLONIDINE HCL 0.1 MG ORAL TABLET 1 po bid 7 days, then 1/2 t ab po bid 7 days CLONIDINE HCL 94003480929 No Longer Active Corey SEGURA Active COUMADIN 5 MG ORAL TABLET 1 tab PO daily WARFAR IN SODIUM 72773914026 Active Renee Oconnor LPN Active COUMADIN 4 MG ORAL TABLET 1 tablet daily WARFAR IN SODIUM 71727738673 No Longer Active Corey SEGURA Active POLYTRIM 37082-5.1 UNIT/ML-% OPHTHALMIC SOLUTION 1 rui p in affected eye every 3 hours while awake x 7 days POLYMYXIN B-TRIMETHOP RIM 08341174230 No Longer Active Corey SEGURA Active LOSARTAN POTASSIUM-HCTZ 100-12.5 MG ORAL TABLET 1 by m outh daily for high blood pressure LOSARTAN POTASSIUM-HCTZ 87758618511 No Longer A ctive Mitch Urbina DO Active LISINOPRIL-HYDROCHLOROTHIAZIDE 20-12.5 MG ORAL TABLET 1 tab by m outh daily LISINOPRIL-HYDROCHLOROTHIAZIDE 34660059455 No Longer Active Mitch Urbina DO Active LISINOPRIL 20 MG ORAL TABLET 1 tab po at HS LIS INOPRIL 36969778608 No Longer Active Mitch Urbian DO Active COUMADIN 5 MG ORAL TABLET 1 by mouth every other day 2 WARFARIN SODIUM 67083851276 No Longer Active Mitch Urbina DO Active COUMADIN 6 MG ORAL TABLET 1 by mouth every other day 2 WARFARIN SODIUM 89369207296 No Longer Active Mitch Urbina DO Active SIMVASTATIN 40 MG ORAL TABLET 1 tab daily at bedtime SIMVASTATIN 72820458708 Active Mitch Urbina DO Active SIMVASTATIN 20 MG ORAL TABLET 1 tab daily at bedtime 2 SIMVASTATIN 79856542754 No Longer Active Mitch Urbina DO Active LOVENOX 100 MG/ML SUBCUTANEOUS SOLUTION One injection twice a da y ENOXAPARIN SODIUM 25310685172 No Longer Active Carmine Yusuf MD Active JANUVIA 50 MG ORAL TABLET Take one by mouth daily SITAGLIPTIN PHOSPHATE 59906781658 Active Renee Elvin DE LA ROSA Active JANUVIA 100 MG ORAL TABLET 1/2 by mouth every day 2011 SITAGLIPTIN PHOSPHATE 55895337252 No Longer Active Bijal Segal RN Acti ve METFORMIN HCL 500 MG ORAL TABLET 2 by mouth twice daily METFORMIN HCL 29444580061 No Longer Active Renee Oconnor LPN Active COLCRYS 0.6 MG ORAL TABLET 1 po q 6 hours prn gout pain COLCHICINE 81685864965 No Longer Active Camila Reese Active LISINOPRIL 5 MG ORAL TABLET 1 by mouth every day 11/17 LISINOPRIL 86818888919 No Longer Active Nguyen Perez Active KLOR-CON 20 MEQ ORAL PACKET Take one by mouth daily 09/10/08 POTASSIUM CHLORIDE 03995059097 No Longer Active gNuyen Perez Active FUROSEMIDE 40 MG ORAL TABLET 1 by mouth daily F UROSEMIDE 03347805955 No Longer Active Nguyen Perez Active PROVIGIL 100 MG ORAL TABLET Take one by mouth daily 08/20/04 MODAFINIL 99315845868 No Longer Active Mitch Urbina DO Active BACTRIM DS 800-160 MG ORAL TABLET 1 tab by mouth twice daily 201 10/19/09 TRIMETHOPRIM-SULFAMETHOXAZOLE 66173311914 No Longer Active Elian Hays MD Active ADULT ASPIRIN LOW STRENGTH 81 MG ORAL TABLET DISINTEGR ATING 1 by mouth every daily ASPIRIN 32506179597 Active Mitch Urbina DO Ac tive METOPROLOL TARTRATE 50 MG ORAL TABLET 1 by mouth twice daily METOPROLOL TARTRATE 02270145906 Active Maria Rivas RN Ac tive BACTRIM DS 800-160 MG ORAL TABLET 1 tab by mouth twice daily 201 10/19/09 BACTRIM DS 800-160 MG ORAL TABLET 270126 TRIMETHOPRIM-SULFAMETHOXAZOLE Inactive PROVIGIL 100 MG ORAL TABLET Take one by mouth daily 20 08/20/04 PROVIGIL 100 MG ORAL TABLET 155109 MODAFINIL Inactive FUROSEMIDE 40 MG ORAL TABLET 1 by mouth daily FUROSEMIDE 40 MG ORAL TABLET 100082 FUROSEMIDE Inactive KLOR-CON 20 MEQ ORAL PACKET Take one by mouth daily 20 09/10/08 KLOR- CON 20 MEQ ORAL PACKET 1021218 POTASSIUM CHLORIDE Inactive LISINOPRIL 5 MG ORAL TABLET 1 by mouth every day 11/17 LISINOPRIL 5 MG ORAL TABLET 887813 LISINOPRIL Inactive COLCRYS 0.6 MG ORAL TABLET 1 po q 6 hours prn gout pain COLCRYS 0.6 MG ORAL TABLET 166726 COLCHICINE Inactive JANUVIA 100 MG ORAL TABLET 1/2 by mouth every day 2011 JANUVIA 100 MG ORAL TABLET SITAGLIPTIN PHOSPHATE Inactive SIMVASTATIN 20 MG ORAL TABLET 1 tab daily at bedtime 2 SIMVASTATIN 20 MG ORAL TABLET 072550 SIMVASTATIN Inactive COUMADIN 6 MG ORAL TABLET 1 by mouth every other day 2 COUMADIN 6 MG ORAL TABLET 203177 WARFARIN SODIUM Inactive COUMADIN 5 MG ORAL TABLET 1 by mouth every other day 2 COUMADIN 5 MG ORAL TABLET 404883 WARFARIN SODIUM Inactive LISINOPRIL 20 MG ORAL TABLET 1 tab po at HS LISINOPRIL 20 MG ORAL TABLET 317860 LISINOPRIL Inactive LISINOPRIL-HYDROCHLOROTHIAZIDE 20-12.5 MG ORAL TABLET 1 tab by m outh daily LISINOPRIL-HYDROCHLOROTHIAZIDE 20-12.5 MG ORAL TABLET 516013 LISINOPRIL-HYDROCHLOROTHIAZIDE Inactive POLYTRIM 17264-4.1 UNIT/ML-% OPHTHALMIC SOLUTION 1 rui p in affected eye every 3 hours while awake x 7 days POLYTRIM 1000 0-0.1 UNIT/ML-% OPHTHALMIC SOLUTION 620795 POLYMYXIN B-TRIMETHOPRIM Inactive COUMADIN 4 MG ORAL TABLET 1 tablet daily COUMADIN 4 MG ORAL TABLET 446321 WARFARIN SODIUM Inactive CLONIDINE HCL 0.1 MG ORAL TABLET 1 po bid 7 days, then 1/2 t ab po bid 7 days CLONIDINE HCL 0.1 MG ORAL TABLET 448355 CLONIDIN E HCL Inactive ALLOPURINOL 300 MG ORAL TABLET Take 1 tablet by mouth daily 2012 ALLOPURINOL 300 MG ORAL TABLET 719621 ALLOPURINOL I nactive MECLIZINE HCL 25 MG ORAL TABLET 1 po tid 3 days, then 1/2 ta b tid 3 days MECLIZINE HCL 25 MG ORAL TABLET 405744 MECLIZINE HCL Inactive AMLODIPINE BESYLATE 5 MG ORAL TABLET 1 tablet by mouth daily 201 01/20/04 AMLODIPINE BESYLATE 5 MG ORAL TABLET 113379 AMLODIPINE BESYLATE Inactive KEFLEX 500 MG ORAL CAPSULE 1 po qid K EFLEX 500 MG ORAL CAPSULE 197576 CEPHALEXIN Inactive COLCRYS 0.6 MG ORAL TABLET 1 tab qid prn gout COLCRYS 0.6 MG ORAL TABLET 127406 COLCHICINE Inactive FAMOTIDINE 20 MG ORAL TABLET by mouth twice a day 2017 FAMOTIDINE 20 MG ORAL TABLET 855184 FAMOTIDINE Inactive GLIMEPIRIDE 2 MG ORAL TABLET 1 po BID GLIMEPIRIDE 2 MG ORAL TABLET 745660 GLIMEPIRIDE Inactive LOVENOX 100 MG/ML SUBCUTANEOUS SOLUTION One injection twice a da y LOVENOX 100 MG/ML SUBCUTANEOUS SOLUTION 215237 ENOXAPAR IN SODIUM Inactive Advance Directives Directive [...] weight E&M 223 [lb_av] Weight Measure d Diagnostic Results Date [...] 11 .6-14.8 platelet count 238 10^3/MM^3 10*3/mm3 666-189 1309/03/29 leukocyte count, blood 6.7 10^3/MM^3 10*3/mm3 4.6-10.2 [...] 80 mg/L 0-19 microalbumin, urine 30 mg/L 0- Lab Report: CBC, MICROALB/CREAT W/RATIO [...] mg/dL Encounters Code Encounter Date Provider Facility CPT-87870 19052-Ile Vst-Est Level IV 10:06:35 CDT Stephy Urbina [facility] CPT-64655 76135-Sab Vst-Est Level IV 10:52:00 CDL PROGRAM COORDINATOR Stephy Urbina [facility] CPT-90540 Level 3 Est. Patient 18:25:53 CDT Mitch Castellano janelle [facility] CPT-46784 Level 3 Est. Patient 19:43:34 CDT Mitch luis [facility] CPT-17129 Level 4 Est. Patient 09:30:18 CDT Mitch luis [facility] CPT-52292 Level 3 Est. Patient 15:10:14 CDT Joe Jason kamara [facility] CPT-21376 Level 3 Est. Patient 15:03:46 CDT Joe Jason kamara [facility] CPT-95144 Level 3 Est. Patient 14:21:06 CDT Mitch luis [facility] CPT-35496 Level 3 Est. Patient 14:52:06 CDT Joe Jason kamara [facility] CPT-92565 Level 3 Est. Patient 09:34:30 CDL PROGRAM COORDINATOR Mitch luis [facility] CPT-62517 Level 3 Est. Patient 09:37:15 CDT Mitch luis [facility] CPT-88118 Level 3 Est. Patient 17:01:00 CDL PROGRAM COORDINATOR Mitch luis [facility] CPT-69492 Level 3 Est. Patient 13:53:19 CDL PROGRAM COORDINATOR Mitch luis [facility] CPT-19034 Level 3 Est. Patient 19:19:37 CDL PROGRAM COORDINATOR Mitch luis [facility] CPT-15642 Level 3 Est. Patient 13:25:53 CDL PROGRAM COORDINATOR Tavo toure MD [facility] CPT-19348 Level 3 Est. Patient 18:17:28 CDT Mitch luis [facility] CPT-41247 Level 3 Est. Patient 15:22:57 CDT Mitch luis [facility] CPT-07600 Level 3 Est. Patient 18:21:50 CDT Mitch luis [facility] CPT-38767 Level 3 Est. Patient 18:20:38 CDT Mitch luis [facility] CPT-04935 Level 3 Est. Patient 15:37:55 CDT Mitch luis [facility] CPT-10768 Level 2 Est. Patient 15:54:44 CDT Carmine benton MD [facility] CPT-60206 Level 3 Est. Patient 21:46:01 CDL PROGRAM COORDINATOR Mitch luis [facility] CPT-40623 Level 3 Est. Patient 22:15:50 CDT Mitch luis [facility] CPT-78428 Level 3 Est. Patient 10:48:15 CDT Mitch luis [facility] CPT-10054 Level 3 Est. Patient 23:20:57 CDT Tavo toure MD [facility] CPT-09365 Level 3 Est. Patient 16:26:13 CDT Mitch Arnol luis [facility] Procedures Code Procedure Name Date Entry Date Standard Desc ription CPT-JTINJ Asp/Joint Injection 18:47:02 CDT CPT-42444 Venipuncture Draw Fee 09:26:17 CDT CPT-77105 PT/INR - LAB USE ONLY 13:32:49 CDL PROGRAM COORDINATOR CPT-06676 Venipuncture Draw Fee 13:32:49 CDL PROGRAM COORDINATOR CPT-76117 PT/INR - LAB USE ONLY 10:34:49 CDL PROGRAM COORDINATOR CPT-08009 Venipuncture Draw Fee 10:34:48 CDL PROGRAM COORDINATOR CPT-30140 PT/INR - LAB USE ONLY 09:22:03 CDL PROGRAM COORDINATOR CPT-97418 Venipuncture Draw Fee 09:22:02 CDL PROGRAM COORDINATOR CPT-28915 Hemoccult IFOBT - LAB USE ONLY 10:27:22 CDT CPT-16156 Venipuncture Draw Fee 08:27:08 CDT CPT-21627 Liver Profile - LAB USE ONLY 08:27:07 CDT 2 CPT-96816 Microalbumin - LAB USE ONLY 08:27:07 CDT 20 25/05/09 CPT-12937 PT/INR - LAB USE ONLY 08:27:07 CDT CPT-26916 HGBA1C - LAB USE ONLY 08:27:07 CDT CPT-71003 CBC - LAB USE ONLY 08:27:07 CDT CPT-85979 Venipuncture Draw Fee 11:09:14 CDT CPT-66539 Venipuncture Draw Fee 08:32:21 CDL PROGRAM COORDINATOR CPT-85907 Venipuncture Draw Fee 09:38:56 CDL PROGRAM COORDINATOR CPT-47832 No Charge Offi Visit 21:36:07 CDT 1 CPT-94323 Venipuncture Draw Fee 10:13:28 CDL PROGRAM COORDINATOR CPT-62934 Venipuncture Draw Fee 08:31:11 CDT CPT-32404 Aspir/Inject Med Joint 18:17:28 CDT CPT-00495 Venipuncture Draw Fee 10:13:30 CDT CPT-47395 Venipuncture Draw Fee 08:31:43 CDL PROGRAM COORDINATOR CPT-JTINJ Joint Injection 18:34:50 CDT CPT-30536 Knee 3V 12:25:09 CDT CPT-64623 Venipuncture Draw Fee 12:15:57 CDT CPT-060 Medical Surveillance Exam 21:31:43 CDT 2011 CPT-62727 Venipuncture Draw Fee 08:32:05 CDL PROGRAM COORDINATOR CPT-OV Office Visit 18:19:06 CDT
--- OUTSIDE RECORDS SUMMARY | 2020-01-18 11:55 | XMS REPORT | Clinical Summary ---
Author Author Admin, Mitch Leon Organization [facility] [employer] Address Unknown Phone Unavailable Allergies, Adverse Reactions, [...] Coronary atherosclerosis of unspecified type of vessel, [place] or graft EDEMA 782.3 Resolved Mitch Urbina [...] daily for high b lood pressure MINOXIDIL 71787621844 Active Mitch Urbina DO Ac tive METFORMIN HCL ER 500 MG ORAL TABLET EXTENDED RELEASE 2 4 HOUR 2 tablets by mouth twice daily METFORMIN HCL 01294036932 Active Mitch Urbina Active GLIMEPIRIDE 4 MG ORAL TABLET 1 tablet by mouth twice daily f or diabetes GLIMEPIRIDE 12937283490 Active Mitch Arnol Urbina Active GLIMEPIRIDE 2 MG ORAL TABLET 1 po BID GLIMEPI RIDE 39328728141 No Longer Active Mitch Urbina DO Active AMLODIPINE BESYLATE 5 MG ORAL TABLET 1 tablet by mouth daily AMLODIPINE BESYLATE 42634427363 Active Mitch Urbina DO Active PROVIGIL 200 MG ORAL TABLET 1/2 tab po q day MODA FINIL 24671297468 Active Renee Oconnor LPN Active FAMOTIDINE 20 MG ORAL TABLET by mouth twice a day 2017 FAMOTIDINE 00716308763 No Longer Active Mitch Urbina DO Active COLCRYS 0.6 MG ORAL TABLET 1 tab qid prn gout C OLCHICINE 40421532484 No Longer Active Mitch Urbina DO Active KEFLEX 500 MG ORAL CAPSULE 1 po qid CEPHALEXI N 43205231066 No Longer Active Mitch Urbina DO Active LOSARTAN POTASSIUM 100 MG ORAL TABLET 1 pill by mouth daily, for blood pressure LOSARTAN POTASSIUM 86934784049 Active Ana Ocampo Active AMLODIPINE BESYLATE 5 MG ORAL TABLET 1 tablet by mouth daily 201 01/20/04 AMLODIPINE BESYLATE 92010451951 No Longer Active Jillina Fra donaldo 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 COLCHICINE 59 998685612 Active Mitch Urbina DO Active COUMADIN 1 MG ORAL TABLET 2 tabs orally daily with the 5mg tab to equal 7mg daily WARFARIN SODIUM 67789749343 Active Renee Oconnor LPN Active INVOKANA 100 MG ORAL TABLET 1 tablet orally daily CANAGLIFLOZIN 11426267462 Active Renee Oconnoreder BURNETTN Active MECLIZINE HCL 25 MG ORAL TABLET 1 po tid 3 days, then 1/2 ta b tid 3 days MECLIZINE HCL 55621097927 No Longer Active Corey SEGURA Active ALLOPURINOL 300 MG ORAL TABLET Take 1 tablet by mouth daily 2012 ALLOPURINOL 64900918121 No Longer Active Corey SEGURA Active CLONIDINE HCL 0.1 MG ORAL TABLET 1 po bid 7 days, then 1/2 t ab po bid 7 days CLONIDINE HCL 71232319029 No Longer Active Corey SEGURA Active COUMADIN 5 MG ORAL TABLET 1 tab PO daily WARFAR IN SODIUM 51096094602 Active Renee Oconnor LPN Active COUMADIN 4 MG ORAL TABLET 1 tablet daily WARFAR IN SODIUM 20404057418 No Longer Active Corey SEGURA Active POLYTRIM 11437-4.1 UNIT/ML-% OPHTHALMIC SOLUTION 1 rui p in affected eye every 3 hours while awake x 7 days POLYMYXIN B-TRIMETHOP RIM 97623960745 No Longer Active Corey SEGURA Active LOSARTAN POTASSIUM-HCTZ 100-12.5 MG ORAL TABLET 1 by m outh daily for high blood pressure LOSARTAN POTASSIUM-HCTZ 21176992680 No Longer A ctive Mitch Urbina DO Active LISINOPRIL-HYDROCHLOROTHIAZIDE 20-12.5 MG ORAL TABLET 1 tab by m outh daily LISINOPRIL-HYDROCHLOROTHIAZIDE 50165173423 No Longer Active Mitch Urbina DO Active LISINOPRIL 20 MG ORAL TABLET 1 tab po at HS LIS INOPRIL 35275155767 No Longer Active Mitch Urbina DO Active COUMADIN 5 MG ORAL TABLET 1 by mouth every other day 2 WARFARIN SODIUM 18404117640 No Longer Active Mitch Urbina DO Active COUMADIN 6 MG ORAL TABLET 1 by mouth every other day 2 WARFARIN SODIUM 32235384521 No Longer Active Mitch Urbina DO Active SIMVASTATIN 40 MG ORAL TABLET 1 tab daily at bedtime SIMVASTATIN 60828273683 Active Mitch Urbina DO Active SIMVASTATIN 20 MG ORAL TABLET 1 tab daily at bedtime 2 SIMVASTATIN 02042418802 No Longer Active Mitch Urbina DO Active LOVENOX 100 MG/ML SUBCUTANEOUS SOLUTION One injection twice a da y ENOXAPARIN SODIUM 14847566817 No Longer Active Carmine Yusuf MD Active JANUVIA 50 MG ORAL TABLET Take one by mouth daily SITAGLIPTIN PHOSPHATE 40623113520 Active Renee Elvin DE LA ROSA Active JANUVIA 100 MG ORAL TABLET 1/2 by mouth every day 2011 SITAGLIPTIN PHOSPHATE 09985822538 No Longer Active Bijal Segal RN Acti ve METFORMIN HCL 500 MG ORAL TABLET 2 by mouth twice daily METFORMIN HCL 28686395448 No Longer Active Renee Oconnor LPN Active COLCRYS 0.6 MG ORAL TABLET 1 po q 6 hours prn gout pain COLCHICINE 12228876669 No Longer Active Camila Reese Active LISINOPRIL 5 MG ORAL TABLET 1 by mouth every day 11/17 LISINOPRIL 13868160879 No Longer Active Nguyen Perez Active KLOR-CON 20 MEQ ORAL PACKET Take one by mouth daily 09/10/08 POTASSIUM CHLORIDE 53771590108 No Longer Active Nguyen Perez Active FUROSEMIDE 40 MG ORAL TABLET 1 by mouth daily F UROSEMIDE 52236343423 No Longer Active Nguyen Perez Active PROVIGIL 100 MG ORAL TABLET Take one by mouth daily 08/20/04 MODAFINIL 46659138302 No Longer Active Mitch Urbina DO Active BACTRIM DS 800-160 MG ORAL TABLET 1 tab by mouth twice daily 201 10/19/09 TRIMETHOPRIM-SULFAMETHOXAZOLE 99148316501 No Longer Active Elian Hays MD Active ADULT ASPIRIN LOW STRENGTH 81 MG ORAL TABLET DISINTEGR ATING 1 by mouth every daily ASPIRIN 39856054573 Active Mitch Urbina DO Ac tive METOPROLOL TARTRATE 50 MG ORAL TABLET 1 by mouth twice daily METOPROLOL TARTRATE 85616874206 Active Ana Matt BACTRIM DS 800-160 MG ORAL TABLET 1 tab by mouth twice daily 201 10/19/09 BACTRIM DS 800-160 MG ORAL TABLET 930429 TRIMETHOPRIM-SULFAMETHOXAZOLE Inactive PROVIGIL 100 MG ORAL TABLET Take one by mouth daily 20 08/20/04 PROVIGIL 100 MG ORAL TABLET 027129 MODAFINIL Inactive FUROSEMIDE 40 MG ORAL TABLET 1 by mouth daily FUROSEMIDE 40 MG ORAL TABLET 411513 FUROSEMIDE Inactive KLOR-CON 20 MEQ ORAL PACKET Take one by mouth daily 20 09/10/08 KLOR- CON 20 MEQ ORAL PACKET 7780739 POTASSIUM CHLORIDE Inactive LISINOPRIL 5 MG ORAL TABLET 1 by mouth every day 11/17 LISINOPRIL 5 MG ORAL TABLET 567804 LISINOPRIL Inactive COLCRYS 0.6 MG ORAL TABLET 1 po q 6 hours prn gout pain COLCRYS 0.6 MG ORAL TABLET 232876 COLCHICINE Inactive JANUVIA 100 MG ORAL TABLET 1/2 by mouth every day 2011 JANUVIA 100 MG ORAL TABLET SITAGLIPTIN PHOSPHATE Inactive SIMVASTATIN 20 MG ORAL TABLET 1 tab daily at bedtime 2 SIMVASTATIN 20 MG ORAL TABLET 672121 SIMVASTATIN Inactive COUMADIN 6 MG ORAL TABLET 1 by mouth every other day 2 COUMADIN 6 MG ORAL TABLET 098454 WARFARIN SODIUM Inactive COUMADIN 5 MG ORAL TABLET 1 by mouth every other day 2 COUMADIN 5 MG ORAL TABLET 045302 WARFARIN SODIUM Inactive LISINOPRIL 20 MG ORAL TABLET 1 tab po at HS LISINOPRIL 20 MG ORAL TABLET 394940 LISINOPRIL Inactive LISINOPRIL-HYDROCHLOROTHIAZIDE 20-12.5 MG ORAL TABLET 1 tab by m outh daily LISINOPRIL-HYDROCHLOROTHIAZIDE 20-12.5 MG ORAL TABLET 070964 LISINOPRIL-HYDROCHLOROTHIAZIDE Inactive POLYTRIM 33685-1.1 UNIT/ML-% OPHTHALMIC SOLUTION 1 rui p in affected eye every 3 hours while awake x 7 days POLYTRIM 1000 0-0.1 UNIT/ML-% OPHTHALMIC SOLUTION 749829 POLYMYXIN B-TRIMETHOPRIM Inactive COUMADIN 4 MG ORAL TABLET 1 tablet daily COUMADIN 4 MG ORAL TABLET 141197 WARFARIN SODIUM Inactive CLONIDINE HCL 0.1 MG ORAL TABLET 1 po bid 7 days, then 1/2 t ab po bid 7 days CLONIDINE HCL 0.1 MG ORAL TABLET 057756 CLONIDIN E HCL Inactive ALLOPURINOL 300 MG ORAL TABLET Take 1 tablet by mouth daily 2012 ALLOPURINOL 300 MG ORAL TABLET 388920 ALLOPURINOL I nactive MECLIZINE HCL 25 MG ORAL TABLET 1 po tid 3 days, then 1/2 ta b tid 3 days MECLIZINE HCL 25 MG ORAL TABLET 043311 MECLIZINE HCL Inactive AMLODIPINE BESYLATE 5 MG ORAL TABLET 1 tablet by mouth daily 201 01/20/04 AMLODIPINE BESYLATE 5 MG ORAL TABLET 414378 AMLODIPINE BESYLATE Inactive KEFLEX 500 MG ORAL CAPSULE 1 po qid K EFLEX 500 MG ORAL CAPSULE 544524 CEPHALEXIN Inactive COLCRYS 0.6 MG ORAL TABLET 1 tab qid prn gout COLCRYS 0.6 MG ORAL TABLET 298163 COLCHICINE Inactive FAMOTIDINE 20 MG ORAL TABLET by mouth twice a day 2017 FAMOTIDINE 20 MG ORAL TABLET 754876 FAMOTIDINE Inactive GLIMEPIRIDE 2 MG ORAL TABLET 1 po BID GLIMEPIRIDE 2 MG ORAL TABLET 321508 GLIMEPIRIDE Inactive LOVENOX 100 MG/ML SUBCUTANEOUS SOLUTION One injection twice a da y LOVENOX 100 MG/ML SUBCUTANEOUS SOLUTION 468965 ENOXAPAR IN SODIUM Inactive Advance Directives Directive [...] 11 .6-14.8 platelet count 256 10^3/MM^3 10*3/mm3 518-279 5824/06/29 mean corpuscular hemoglobin, RBC 28.6 pg 27. 0-31.2 mean corpuscular hemoglobin concentration, RBC 32.7 G/DL % 31.8-35.4 red blood cell distribution width 16.2 % 11 .6-14.8 platelet count 238 10^3/MM^3 10*3/mm3 684-935 8116/06/29 mean corpuscular volume, RBC 87 fL 80-97 [...] mg/dL Encounters Code Encounter Date Provider Facility CPT-53548 [id number] Vst-Est Level IV 10:06:[address] [facility]-09391 [id number] Vst-Est Level IV 10:52:00 POULTRY SERVICE TECHNICIAN Stephy Urbina [facility] CPT-75816 Level 3 Est. Patient 18:25:53 CDT Mitch Castellano janelle [facility] CPT-96130 Level 3 Est. Patient 19:43:34 CDT Mitch luis [facility] CPT-47382 Level 4 Est. Patient 09:30:18 CDT Mitch luis [facility] CPT-30939 Level 3 Est. Patient 15:10:14 CDT Joe Jason kamara [facility] CPT-88406 Level 3 Est. Patient 15:03:46 CDT Joe Jason kamara [facility] CPT-92928 Level 3 Est. Patient 14:21:06 CDT Mitch luis [facility] CPT-03405 Level 3 Est. Patient 14:52:06 CDT Joe Jason kamara [facility] CPT-59113 Level 3 Est. Patient 09:34:30 POULTRY SERVICE TECHNICIAN Mitch luis [facility] CPT-70765 Level 3 Est. Patient 09:37:15 CDT Mitch luis [facility] CPT-40638 Level 3 Est. Patient 17:01:00 POULTRY SERVICE TECHNICIAN Mitch luis [facility] CPT-01260 Level 3 Est. Patient 13:53:19 POULTRY SERVICE TECHNICIAN Mitch luis [facility] CPT-70804 Level 3 Est. Patient 19:19:37 POULTRY SERVICE TECHNICIAN Mitch luis [facility] CPT-45183 Level 3 Est. Patient 13:25:53 POULTRY SERVICE TECHNICIAN Tavo toure MD [facility] CPT-54399 Level 3 Est. Patient 18:17:28 CDT Mitch luis [facility] CPT-41970 Level 3 Est. Patient 15:22:57 CDT Mitch luis [facility] CPT-09214 Level 3 Est. Patient 18:21:50 CDT Mitch luis [facility] CPT-83406 Level 3 Est. Patient 18:20:38 CDT Mitch luis [facility] CPT-42800 Level 3 Est. Patient 15:37:55 CDT Mitch luis [facility] CPT-20726 Level 2 Est. Patient 15:54:44 CDT Carmine benton MD [facility] CPT-94419 Level 3 Est. Patient 21:46:01 POULTRY SERVICE TECHNICIAN Mitch luis [facility] CPT-88424 Level 3 Est. Patient 22:15:50 CDT Mitch luis [facility] CPT-55557 Level 3 Est. Patient 10:48:15 CDT Mitch luis [facility] CPT-45594 Level 3 Est. Patient 23:20:57 CDT Tavo toure MD [facility] CPT-09431 Level 3 Est. Patient 16:26:13 CDT Mitch Arnol luis [facility] Procedures Code Procedure Name Date Entry Date Standard Desc ription CPT-JTINJ Asp/Joint Injection 18:47:02 CDT CPT-37717 Venipuncture Draw Fee 09:26:17 CDT CPT-14508 PT/INR - LAB USE ONLY 13:32:49 POULTRY SERVICE TECHNICIAN CPT-24244 Venipuncture Draw Fee 13:32:49 POULTRY SERVICE TECHNICIAN CPT-45184 PT/INR - LAB USE ONLY 10:34:49 POULTRY SERVICE TECHNICIAN CPT-68837 Venipuncture Draw Fee 10:34:48 POULTRY SERVICE TECHNICIAN CPT-02753 PT/INR - LAB USE ONLY 09:22:03 POULTRY SERVICE TECHNICIAN CPT-69764 Venipuncture Draw Fee 09:22:02 POULTRY SERVICE TECHNICIAN CPT-83153 Hemoccult IFOBT - LAB USE ONLY 10:27:22 CDT CPT-68177 Venipuncture Draw Fee 08:27:08 CDT CPT-06811 Liver Profile - LAB USE ONLY 08:27:07 CDT 2 CPT-47382 Microalbumin - LAB USE ONLY 08:27:07 CDT 20 25/05/09 CPT-84045 PT/INR - LAB USE ONLY 08:27:07 CDT CPT-33048 HGBA1C - LAB USE ONLY 08:27:07 CDT CPT-47912 CBC - LAB USE ONLY 08:27:07 CDT CPT-63496 Venipuncture Draw Fee 11:09:14 CDT CPT-41850 Venipuncture Draw Fee 08:32:21 POULTRY SERVICE TECHNICIAN CPT-92725 Venipuncture Draw Fee 09:38:56 POULTRY SERVICE TECHNICIAN CPT-04780 No Charge Offi Visit 21:36:07 CDT 1 CPT-57732 Venipuncture Draw Fee 10:13:28 POULTRY SERVICE TECHNICIAN CPT-37038 Venipuncture Draw Fee 08:31:11 CDT CPT-24127 Aspir/Inject Med Joint 18:17:28 CDT CPT-21931 Venipuncture Draw Fee 10:13:30 CDT CPT-82721 Venipuncture Draw Fee 08:31:43 POULTRY SERVICE TECHNICIAN CPT-JTINJ Joint Injection 18:34:50 CDT CPT-46833 Knee 3V 12:25:09 CDT CPT-58237 Venipuncture Draw Fee 12:15:57 CDT CPT-060 Medical Surveillance Exam 21:31:43 CDT 2011 CPT-26534 Venipuncture Draw Fee 08:32:05 POULTRY SERVICE TECHNICIAN CPT-OV Office Visit 18:19:06 CDT
--- OUTSIDE RECORDS SUMMARY | 2020-01-18 11:55 | XMS REPORT | Clinical Summary ---
Author Author Admin, Mitch Leon Organization [facility] Address Unknown Phone Unavailable Allergies, Adverse Reactions, [...] Coronary atherosclerosis of unspecified type of vessel, [place] or graft EDEMA 782.3 Resolved Micth Urbina DO Ed antonia DEGENERATIVE JOINT DISEASE, [...] ORAL TABLET 1 po BID GLIMEPIRID E 56495965072 Active Renee Oconnor LPN Active KEFLEX 500 MG ORAL CAPSULE 1 po qid CEPHALEXI N 05258687771 No Longer Active Mitch Urbina DO Active LOSARTAN POTASSIUM 100 MG ORAL TABLET 1 pill by mouth daily, for blood pressure LOSARTAN POTASSIUM 07521009543 Active Ana Wallace Active AMLODIPINE BESYLATE 5 MG ORAL TABLET 1 tablet by mouth daily 201 01/20/04 AMLODIPINE BESYLATE 85106169573 No Longer Active Joe fulton APRN Active MITIGARE 0.6 MG ORAL CAPSULE 2 capsules at onset of go ut pain, then take one capsule at 1 hour if symptoms persist. COLCHICINE 59 629181710 Active Mitch Urbina DO Active COUMADIN 1 MG ORAL TABLET 2 tabs orally daily with the 5mg tab to equal 7mg daily WARFARIN SODIUM 32711170680 Active Ana Wallace Active COLCRYS 0.6 MG ORAL TABLET 1 tab qid prn gout C OLCHICINE 49135618904 Active Norma Cazares Active INVOKANA 100 MG ORAL TABLET 1 tablet orally daily CANAGLIFLOZIN 12211627048 Active Mitch Urbina DO Active MINOXIDIL 2.5 MG ORAL TABLET 1 tablet daily for high blood press ure MINOXIDIL 36944961708 Active Mitch Urbina DO Active MECLIZINE HCL 25 MG ORAL TABLET 1 po tid 3 days, then 1/2 ta b tid 3 days MECLIZINE HCL 55190872071 No Longer Active Corey SEGURA Active ALLOPURINOL 300 MG ORAL TABLET Take 1 tablet by mouth daily 2012 ALLOPURINOL 70924995599 No Longer Active Corey SEGURA Active CLONIDINE HCL 0.1 MG ORAL TABLET 1 po bid 7 days, then 1/2 t ab po bid 7 days CLONIDINE HCL 98855297394 No Longer Active Corey SEGURA Active COUMADIN 5 MG ORAL TABLET 1 tab PO daily WARFAR IN SODIUM 03148170777 Active Mitch Urbina DO Active COUMADIN 4 MG ORAL TABLET 1 tablet daily WARFAR IN SODIUM 12905646827 No Longer Active Corey SEGURA Active POLYTRIM 76231-5.1 UNIT/ML-% OPHTHALMIC SOLUTION 1 rui p in affected eye every 3 hours while awake x 7 days POLYMYXIN B-TRIMETHOP RIM 50905845712 No Longer Active Corey SEGURA Active LOSARTAN POTASSIUM-HCTZ 100-12.5 MG ORAL TABLET 1 by m outh daily for high blood pressure LOSARTAN POTASSIUM-HCTZ 07225881902 No Longer A ctive Mitch Urbina DO Active LISINOPRIL-HYDROCHLOROTHIAZIDE 20-12.5 MG ORAL TABLET 1 tab by m outh daily LISINOPRIL-HYDROCHLOROTHIAZIDE 18454441238 No Longer Active Mitch Urbina DO Active LISINOPRIL 20 MG ORAL TABLET 1 tab po at HS LIS INOPRIL 41101459453 No Longer Active Mitch Urbina DO Active COUMADIN 5 MG ORAL TABLET 1 by mouth every other day 2 WARFARIN SODIUM 52904521251 No Longer Active Mitch Urbina DO Active COUMADIN 6 MG ORAL TABLET 1 by mouth every other day 2 WARFARIN SODIUM 86542969001 No Longer Active Mitch Urbina DO Active SIMVASTATIN 40 MG ORAL TABLET 1 tab daily at bedtime SIMVASTATIN 24666727755 Active Mitch Urbina DO Active SIMVASTATIN 20 MG ORAL TABLET 1 tab daily at bedtime 2 SIMVASTATIN 54745953178 No Longer Active Mitch Urbina DO Active LOVENOX 100 MG/ML SUBCUTANEOUS SOLUTION One injection twice a da y ENOXAPARIN SODIUM 63855652883 No Longer Active Carmine Yusuf MD Active JANUVIA 50 MG ORAL TABLET Take one by mouth daily SITAGLIPTIN PHOSPHATE 93981742712 Active Mitch Urbina DO Active JANUVIA 100 MG ORAL TABLET 1/2 by mouth every day 2011 SITAGLIPTIN PHOSPHATE 13121931370 No Longer Active Bijal Segal RN Acti ve METFORMIN HCL 500 MG ORAL TABLET 2 by mouth twice daily METFORMIN HCL 97097276340 Active Mitch Urbina DO Active COLCRYS 0.6 MG ORAL TABLET 1 po q 6 hours prn gout pain COLCHICINE 78011220064 No Longer Active Camila Reese Active LISINOPRIL 5 MG ORAL TABLET 1 by mouth every day 11/17 LISINOPRIL 34878381278 No Longer Active Nguyen Coekman Active KLOR-CON 20 MEQ ORAL PACKET Take one by mouth daily 09/10/08 POTASSIUM CHLORIDE 75452764851 No Longer Active Nguyen Coekman Active FUROSEMIDE 40 MG ORAL TABLET 1 by mouth daily F UROSEMIDE 35169562123 No Longer Active Nguyen Coekman Active PROVIGIL 200 MG ORAL TABLET 1/2 tab po q day MODA FINIL 41611221398 Active Renee Oconnor 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 Active PROVIGIL 100 MG ORAL TABLET Take one by mouth daily 08/20/04 MODAFINIL 59036292181 No Longer Active Mitch Urbina DO Active BACTRIM DS 800-160 MG ORAL TABLET 1 tab by mouth twice daily 201 10/19/09 TRIMETHOPRIM-SULFAMETHOXAZOLE 92409709647 No Longer Active Elian Hays MD Active FAMOTIDINE 20 MG ORAL TABLET by mouth twice a day FAMOTIDINE 49471933495 Active Mitch Urbina DO Active ADULT ASPIRIN LOW STRENGTH 81 MG ORAL TABLET DISINTEGR ATING 1 by mouth every daily ASPIRIN 17875790076 Active Mitch Urbina DO Ac tive METOPROLOL TARTRATE 50 MG ORAL TABLET 1 by mouth twice daily METOPROLOL TARTRATE 28787254568 Active Mitch Urbina DO Active BACTRIM DS 800-160 MG ORAL TABLET 1 tab by mouth twice daily 201 10/19/09 BACTRIM DS 800-160 MG ORAL TABLET 678698 TRIMETHOPRIM-SULFAMETHOXAZOLE Inactive PROVIGIL 100 MG ORAL TABLET Take one by mouth daily 08/20/04 PROVIGIL 100 MG ORAL TABLET 188538 MODAFINIL Inactive FUROSEMIDE 40 MG ORAL TABLET 1 by mouth daily FUROSEMIDE 40 MG ORAL TABLET 080821 FUROSEMIDE Inactive KLOR-CON 20 MEQ ORAL PACKET Take one by mouth daily 09/10/08 KLOR- CON 20 MEQ ORAL PACKET 0616837 POTASSIUM CHLORIDE Inactive LISINOPRIL 5 MG ORAL TABLET 1 by mouth every day 11/17 LISINOPRIL 5 MG ORAL TABLET 003512 LISINOPRIL Inactive COLCRYS 0.6 MG ORAL TABLET 1 po q 6 hours prn gout pain COLCRYS 0.6 MG ORAL TABLET 661421 COLCHICINE Inactive JANUVIA 100 MG ORAL TABLET 1/2 by mouth every day 2011 JANUVIA 100 MG ORAL TABLET SITAGLIPTIN PHOSPHATE Inactive SIMVASTATIN 20 MG ORAL TABLET 1 tab daily at bedtime 2 SIMVASTATIN 20 MG ORAL TABLET 806012 SIMVASTATIN Inactive COUMADIN 6 MG ORAL TABLET 1 by mouth every other day 2 COUMADIN 6 MG ORAL TABLET 698639 WARFARIN SODIUM Inactive COUMADIN 5 MG ORAL TABLET 1 by mouth every other day 2 COUMADIN 5 MG ORAL TABLET 284789 WARFARIN SODIUM Inactive LISINOPRIL 20 MG ORAL TABLET 1 tab po at HS LISINOPRIL 20 MG ORAL TABLET 010837 LISINOPRIL Inactive LISINOPRIL-HYDROCHLOROTHIAZIDE 20-12.5 MG ORAL TABLET 1 tab by m outh daily LISINOPRIL-HYDROCHLOROTHIAZIDE 20-12.5 MG ORAL TABLET 095779 LISINOPRIL-HYDROCHLOROTHIAZIDE Inactive POLYTRIM 39416-0.1 UNIT/ML-% OPHTHALMIC SOLUTION 1 rui p in affected eye every 3 hours while awake x 7 days POLYTRIM 1000 0-0.1 UNIT/ML-% OPHTHALMIC SOLUTION 459254 POLYMYXIN B-TRIMETHOPRIM Inactive COUMADIN 4 MG ORAL TABLET 1 tablet daily COUMADIN 4 MG ORAL TABLET 609783 WARFARIN SODIUM Inactive CLONIDINE HCL 0.1 MG ORAL TABLET 1 po bid 7 days, then 1/2 t ab po bid 7 days CLONIDINE HCL 0.1 MG ORAL TABLET 061116 CLONIDIN E HCL Inactive ALLOPURINOL 300 MG ORAL TABLET Take 1 tablet by mouth daily 2012 ALLOPURINOL 300 MG ORAL TABLET 414238 ALLOPURINOL I nactive MECLIZINE HCL 25 MG ORAL TABLET 1 po tid 3 days, then 1/2 ta b tid 3 days MECLIZINE HCL 25 MG ORAL TABLET 103705 MECLIZINE HCL Inactive AMLODIPINE BESYLATE 5 MG ORAL TABLET 1 tablet by mouth daily 201 01/20/04 AMLODIPINE BESYLATE 5 MG ORAL TABLET 772238 AMLODIPINE BESYLATE Inactive KEFLEX 500 MG ORAL CAPSULE 1 po qid K EFLEX 500 MG ORAL CAPSULE 969880 CEPHALEXIN Inactive LOVENOX 100 MG/ML SUBCUTANEOUS SOLUTION One injection twice a da y LOVENOX 100 MG/ML SUBCUTANEOUS SOLUTION 920735 ENOXAPAR IN SODIUM Inactive Vital Signs Date [...] - Chem istry sodium, serum 139 mmol/L 924-781 0225/07/17 potassium, serum 4.2 mmol/L 3.5-5.2 chloride, serum 102 mmol/L 98-107 carbon dioxide, venous blood 28.9 mmol/L 21.0-32 .0 blood glucose 211 mg/dL 65-110 calcium, serum 10.6 mg/dL 8.5-10.1 urea nitrogen, blood 29 mg/dL 7-18 creatinine, serum 1.24 mg/dL 0.60-1.30 sodium, serum 141 mmol/L 446-753 4267/08/07 potassium, serum 4.5 mmol/L 3.5-5.2 chloride, serum [...] ... - Chemistry sodium, serum 144 mmol/L 956-904 2484/06/12 carbon dioxide, venous blood 26.6 mmol/L 21.0-32 [...] HGBA1C - Chemistry cholesterol, serum 136 mg/dL 358-863 0993/12/06 triglyceride, serum, fasting 247 mg/dL 30-200 HDL cholesterol, serum 41 mg/dL 32-60 LDL cholesterol, serum 46 mg/dL 0-130 aspartate aminotransferase (SGOT), serum 22 U/L 15-37 alanine aminotransferase (SGPT), serum 30 U/L 12-78 bilirubin, serum, total 0.80 mg/dL 0.00-1.00 hemoglobin A1C, blood, as % of total hemoglobin 6.4 % 4.3-6.0 Encounters Code Encounter Date Provider Facility CPT-20824 Level 3 Est. Patient 18:25:53 CDT Mitch luis [facility] CPT-49086 Level 3 Est. Patient 19:43:34 CDT Mitch luis [facility] CPT-37361 Level 4 Est. Patient 09:30:18 CDT Mitch luis [facility] CPT-35954 Level 3 Est. Patient 15:10:14 CDT Joe kamara [facility] CPT-17257 Level 3 Est. Patient 15:03:46 CDT Joe kamara [facility] CPT-80630 Level 3 Est. Patient 14:21:06 CDT Mitch luis [facility] CPT-25002 Level 3 Est. Patient 14:52:06 CDT Joe kamara [facility] CPT-27095 Level 3 Est. Patient 09:34:30 REHABILITATION ENGINEER Mitch luis [facility] CPT-28571 Level 3 Est. Patient 09:37:15 CDT Mitch luis [facility] CPT-69856 Level 3 Est. Patient 17:01:00 REHABILITATION ENGINEER Mitch luis [facility] CPT-50884 Level 3 Est. Patient 13:53:19 REHABILITATION ENGINEER Mitch luis [facility] CPT-63863 Level 3 Est. Patient 19:19:37 REHABILITATION ENGINEER Mitch luis [facility] CPT-82173 Level 3 Est. Patient 13:25:53 REHABILITATION ENGINEER Tavo toure MD [facility] CPT-99395 Level 3 Est. Patient 18:17:28 CDT Mitch luis [facility] CPT-63931 Level 3 Est. Patient 15:22:57 CDT Mitch luis [facility] CPT-33055 Level 3 Est. Patient 18:21:50 CDT Mitch luis [facility] CPT-41899 Level 3 Est. Patient 18:20:38 CDT Mitch luis [facility] CPT-07395 Level 3 Est. Patient 15:37:55 CDT Mitch luis [facility] CPT-66284 Level 2 Est. Patient 15:54:44 CDT Carmine benton MD [facility] CPT-45736 Level 3 Est. Patient 21:46:01 REHABILITATION ENGINEER Mitch luis [facility] CPT-16131 Level 3 Est. Patient 22:15:50 CDT Mitch luis [facility] CPT-36645 Level 3 Est. Patient 10:48:15 CDT Mitch luis [facility] CPT-24896 Level 3 Est. Patient 23:20:57 CDT Tavo toure MD [facility] CPT-83222 Level 3 Est. Patient 16:26:13 CDT Mitch Arnol Nnoa janelle [facility] Procedures Code Procedure Name Date Entry Date Standard Desc ription CPT-21404 Venipuncture Draw Fee 09:26:17 CDT CPT-36143 PT/INR - LAB USE ONLY 13:32:49 REHABILITATION ENGINEER CPT-26616 Venipuncture Draw Fee 13:32:49 REHABILITATION ENGINEER CPT-48673 PT/INR - LAB USE ONLY 10:34:49 REHABILITATION ENGINEER CPT-14661 Venipuncture Draw Fee 10:34:48 REHABILITATION ENGINEER CPT-35173 PT/INR - LAB USE ONLY 09:22:03 REHABILITATION ENGINEER CPT-87822 Venipuncture Draw Fee 09:22:02 REHABILITATION ENGINEER CPT-03658 Hemoccult IFOBT - LAB USE ONLY 10:27:22 CDT CPT-31371 Venipuncture Draw Fee 08:27:08 CDT CPT-06789 Liver Profile - LAB USE ONLY 08:27:07 CDT 2 CPT-74105 Microalbumin - LAB USE ONLY 08:27:07 CDT 20 25/05/09 CPT-61272 PT/INR - LAB USE ONLY 08:27:07 CDT CPT-45137 HGBA1C - LAB USE ONLY 08:27:07 CDT CPT-92678 CBC - LAB USE ONLY 08:27:07 CDT CPT-97427 Venipuncture Draw Fee 11:09:14 CDT CPT-74246 Venipuncture Draw Fee 08:32:21 REHABILITATION ENGINEER CPT-56904 Venipuncture Draw Fee 09:38:56 REHABILITATION ENGINEER CPT-59758 No Charge Offi Visit 21:36:07 CDT 1 CPT-04053 Venipuncture Draw Fee 10:13:28 REHABILITATION ENGINEER CPT-63612 Venipuncture Draw Fee 08:31:11 CDT CPT-25470 Aspir/Inject Med Joint 18:17:28 CDT CPT-89330 Venipuncture Draw Fee 10:13:30 CDT CPT-71015 Venipuncture Draw Fee 08:31:43 REHABILITATION ENGINEER CPT-JTINJ Joint Injection 18:34:50 CDT CPT-84781 Knee 3V 12:25:09 CDT CPT-72124 Venipuncture Draw Fee 12:15:57 CDT CPT-060 Medical Surveillance Exam 21:31:43 CDT 2011 CPT-27623 Venipuncture Draw Fee 08:32:05 REHABILITATION ENGINEER CPT-OV Office Visit 18:19:06 CDT
--- OUTSIDE RECORDS SUMMARY | 2020-01-18 11:56 | XMS REPORT | Clinical Summary ---
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.2 Inactive Mitch Arnol Urbina [...] tab to equal 7mg daily WARFARIN SODIUM 08391308977 Active Kathie Juan RPT,R MA Active COLCRYS 0.6 MG TABS 1 tab qid prn gout COLCHICINE 63181302593 Active Kathie Juan RPT,RMA Active INVOKANA 100 MG ORAL TABS 1 tablet orally daily CANAGLIFLOZIN 60766342434 Active Kathie Juan RPT,RMA Active MINOXIDIL 2.5 MG TABS 1 tablet daily for high blood pressure 10/23 MINOXIDIL 54612202906 Active Mitch Arnol Carlitos DO Active AMLODIPINE BESYLATE 5 MG TABS 1 tablet by mouth daily AMLODIPINE BESYLATE 39045159958 Active Domi Rivera MA Active MECLIZINE HCL 25 MG TAB 1 po tid 3 days, then 1/2 tab tid 3 days MECLIZINE HCL 31106147330 No Longer Active Corey SEGURA Active ALLOPURINOL 300 MG TABS Take 1 tablet by mouth daily 2 ALLOPURINOL 25585552940 No Longer Active Corey SEGURA Activ e CLONIDINE HCL 0.1 MG TABS 1 po bid 7 days, then 1/2 tab po b id 7 days CLONIDINE HCL 13151672946 No Longer Active Corey SEGURA Active COUMADIN 5 MG TABS 1 tab PO daily WARFARIN SODIUM 90747162353 Active Domi Rivera MA Active COUMADIN 4 MG TABS 1 tablet daily WARFARIN SODI UM 62479133017 No Longer Active Corey SEGURA Active POLYTRIM 66346-9.1 UNIT/ML-% SOLN 1 drop in affected e ye every 3 hours while awake x 7 days POLYMYXIN B-TRIMETHOPRIM 52179510517 N o Longer Active Corey SEGURA Active LOSARTAN POTASSIUM-HCTZ 100-12.5 MG TABS 1 by mouth da rocky for high blood pressure LOSARTAN POTASSIUM-HCTZ 64599788285 Active Domi Rivera MA Active LISINOPRIL-HYDROCHLOROTHIAZIDE 20-12.5 MG TABS 1 tab by mouth da rocky LISINOPRIL-HYDROCHLOROTHIAZIDE 76372310564 No Longer Active Mitch luis DO Active LISINOPRIL 20 MG TABS 1 tab po at HS LISINOPRIL 24890861258 No Longer Active Mitch Urbina DO Active COUMADIN 5 MG TABS 1 by mouth every other day WARFARIN SODIUM 59848843364 No Longer Active Mitch Urbina DO Active COUMADIN 6 MG TABS 1 by mouth every other day WARFARIN SODIUM 53622017763 No Longer Active Mitch Urbina DO Active SIMVASTATIN 40 MG TABS 1 tab daily at bedtime S IMVASTATIN 77205865631 Active Domi Rivera MA Active SIMVASTATIN 20 MG TABS 1 tab daily at bedtime S IMVASTATIN 32081345089 No Longer Active Mitch Urbina DO Active LOVENOX 100 MG/ML SC SOLN One injection twice a day 09/15/15 ENOXAPARIN SODIUM 33387049308 No Longer Active Carmine Yusuf MD A ctive JANUVIA 50 MG TABS Take one by mouth daily DIEGO GLIPTIN PHOSPHATE 16408994525 Active Tavo Hilton MD Active JANUVIA 100 MG TABS 1/2 by mouth every day DIEGO GLIPTIN PHOSPHATE 22879526112 No Longer Active Bijal Segal RN Active METFORMIN HCL 500 MG TABS 2 by mouth twice daily METFORMIN HCL 85639493051 Active Mitch Urbina DO Active GLIMEPIRIDE 4 MG TABS 1 tab po bid GLIMEPIRIDE 659961 62461 Active Mitch Urbina DO Active COLCRYS 0.6 MG TABS 1 po q 6 hours prn gout pain 03/02 COLCHICINE 73070604346 No Longer Active Camila Reese Active LISINOPRIL 5 MG TABS 1 by mouth every day LISIN OPRIL 88445110513 No Longer Active Nguyen Perez Active KLOR-CON 20 MEQ PACK Take one by mouth daily 8 POTASSIUM CHLORIDE 52310442315 No Longer Active Nguyen Perez Active FUROSEMIDE 40 MG TABS 1 by mouth daily FUROSEMI DE 92109180013 No Longer Active Nguyen Perez Active PROVIGIL 200 MG TABS 1/2 tab po q day MODAFINIL 19401 922168 Active Curly Coker MD Active PROVIGIL 100 MG TABS Take one by mouth daily MO DAFINIL 95181299078 No Longer Active Mitch Urbina DO Active BACTRIM DS 800-160 MG TAB 1 tab by mouth twice daily 2 TRIMETHOPRIM-SULFAMETHOXAZOLE 30423514606 No Longer Active Renan Hays MD Active FAMOTIDINE 20 MG TABS by mouth twice a day FAMOTI DINE 55653689664 Active Mitch Urbina DO Active ADULT ASPIRIN LOW STRENGTH 81 MG TBDP 1 by mouth every daily ASPIRIN 55307809136 Active Mitch Urbina DO Active METOPROLOL TARTRATE 50 MG TABS 1 by mouth twice daily METOPROLOL TARTRATE 33346164604 Active Domi Rivera MA Active BACTRIM DS 800-160 MG TAB 1 tab by mouth twice daily 2 BACTRIM DS 800-160 MG TAB 868711 TRIMETHOPRIM-SULFAMETHOXAZOLE Inac tive PROVIGIL 100 MG TABS Take one by mouth daily 4 PROVIGIL 100 MG TABS 142491 MODAFINIL Inactive FUROSEMIDE 40 MG TABS 1 by mouth daily FU ROSEMIDE 40 MG TABS 147875 FUROSEMIDE Inactive KLOR-CON 20 MEQ PACK Take one by mouth daily 8 KLOR-CON 20 MEQ PACK 243452 POTASSIUM CHLORIDE Inactive LISINOPRIL 5 MG TABS 1 by mouth every day LISINOPRIL 5 MG TABS 687818 LISINOPRIL Inactive COLCRYS 0.6 MG TABS 1 po q 6 hours prn gout pain 03/02 COLCRYS 0.6 MG TABS 730737 COLCHICINE Inactive JANUVIA 100 MG TABS 1/2 by mouth every day JANUVI A 100 MG TABS SITAGLIPTIN PHOSPHATE Inactive SIMVASTATIN 20 MG TABS 1 tab daily at bedtime SIMVASTATIN 20 MG TABS 587028 SIMVASTATIN Inactive COUMADIN 6 MG TABS 1 by mouth every other day COUMADIN 6 MG TABS 311004 WARFARIN SODIUM Inactive COUMADIN 5 MG TABS 1 by mouth every other day COUMADIN 5 MG TABS 611714 WARFARIN SODIUM Inactive LISINOPRIL 20 MG TABS 1 tab po at HS KOKI NOPRIL 20 MG TABS 549041 LISINOPRIL Inactive LISINOPRIL-HYDROCHLOROTHIAZIDE 20-12.5 MG TABS 1 tab by mouth da rocky LISINOPRIL-HYDROCHLOROTHIAZIDE 20-12.5 MG TABS 251105 LISINOPRIL-HYDROCHLOROTHIAZIDE Inactive POLYTRIM 96753-2.1 UNIT/ML-% SOLN 1 drop in affected e ye every 3 hours while awake x 7 days POLYTRIM 19694-2.1 UNIT/ML-% SOLN 33793 7 POLYMYXIN B-TRIMETHOPRIM Inactive COUMADIN 4 MG TABS 1 tablet daily COUMADIN 4 MG TABS 850696 WARFARIN SODIUM Inactive CLONIDINE HCL 0.1 MG TABS 1 po bid 7 days, then 1/2 tab po b id 7 days CLONIDINE HCL 0.1 MG TABS 449495 CLONIDINE HCL I nactive ALLOPURINOL 300 MG TABS Take 1 tablet by mouth daily 2 ALLOPURINOL 300 MG TABS 255144 ALLOPURINOL Inactive MECLIZINE HCL 25 MG TAB 1 po tid 3 days, then 1/2 tab tid 3 days MECLIZINE HCL 25 MG TAB 723795 MECLIZINE HCL Inactive LOVENOX 100 MG/ML SC SOLN One injection twice a day 20 09/15/15 LOVENOX 100 MG/ML SC SOLN 026412 ENOXAPARIN SODIUM Inactive Vital Signs Date Name [...] Range Description Lab Report: CBC - Hematology mean corpuscular volume, RBC 82 fL 80-97 hematocrit, blood 37.3 % 41.0-53.0 hemoglobin, blood 12.2 g/dL 13.5-17.5 erythrocyte (RBC) count 4.57 10^6/MM^3 10*6/mm3 4.69-6.1 3 leukocyte count, blood 7.1 10^3/MM^3 10*3/mm3 4.6-10.2 mean corpuscular hemoglobin, RBC 26.6 pg 27. 0-31.2 mean corpuscular hemoglobin concentration, RBC 32.6 G/DL % 31.8-35.4 red blood cell distribution width 18.0 % 11 .6-14.8 platelet count 276 10^3/MM^3 10*3/mm3 142-424 Lab Report: Comp. Metabolic Panel - Chem istry sodium, serum 136 mmol/L 090-994 1875/01/14 creatinine, serum 1.11 mg/dL 0.55-1.30 alanine aminotransferase (SGPT), serum 37 U/L 12-78 aspartate aminotransferase (SGOT), serum 26 U/L 15-37 calcium, serum 9.7 mg/dL 8.5-10.1 bilirubin, serum, total 0.70 mg/dL 0.00-1.00 carbon dioxide, venous blood 25.4 mmol/L 21.0-32 .0 potassium, serum 4.2 mmol/L 3.5-5.2 chloride, serum 100 mmol/L 98-107 blood glucose 241 mg/dL 65-110 urea nitrogen, blood 25 mg/dL 7-18 Lab Report: HGBA1C - Chemistry hemoglobin A1C, [...] CBC - Chemistry cholesterol, serum 136 mg/dL 287-268 9959/08/09 triglyceride, serum, fasting 187 mg/dL 30-200 HDL [...] - Coagulati on international normalized ratio (INR) 1.5 1.0-3.5 prothrombin time (patient) 16.2 SECS s 11.1-13.4 prothrombin time (patient) 16.9 SECS s 11.1-13.4 international normalized ratio (INR) 2.0 1.0-3.5 international normalized ratio (INR) 1.8 1.0-3.5 international normalized ratio (INR) 2.0 1.0-3.5 prothrombin time (patient) 14.5 SECS s 11.1-13.4 prothrombin time (patient) 17.1 SECS s 11.1-13.4 prothrombin time (patient) 15.8 SECS s 11.1-13.4 international normalized ratio (INR) 1.8 1.0-3.5 prothrombin time (patient) 19.9 SECS s 11.1-13.4 international normalized ratio (INR) 2.4 1.0-3.5 prothrombin time (patient) 15.4 SECS s 11.1-13.4 international normalized ratio (INR) 1.5 1.0-3.5 prothrombin time (patient) 18.9 SECS s 11.1-13.4 international normalized ratio (INR) 2.4 1.0-3.5 Encounters Code Encounter Date Provider Facility CPT-90460 Level 3 Est. Patient 09:34:30 VALUE STREAM COACH Mitch luis [facility] CPT-19522 Level 3 Est. Patient 09:37:15 CDT Mitch luis [facility] CPT-65532 Level 3 Est. Patient 17:01:00 VALUE STREAM COACH Mitch luis [facility] CPT-66426 Level 3 Est. Patient 13:53:19 VALUE STREAM COACH Mitch luis [facility] CPT-18320 Level 3 Est. Patient 19:19:37 VALUE STREAM COACH Mitch luis [facility] CPT-70926 Level 3 Est. Patient 13:25:53 VALUE STREAM COACH Tavo toure MD [facility] CPT-28777 Level 3 Est. Patient 18:17:28 CDT Mitch luis [facility] CPT-15559 Level 3 Est. Patient 15:22:57 CDT Mitch luis [facility] CPT-91197 Level 3 Est. Patient 18:21:50 CDT Mitch luis [facility] CPT-77369 Level 3 Est. Patient 18:20:38 CDT Mitch luis [facility] CPT-60719 Level 3 Est. Patient 15:37:55 CDT Mitch luis [facility] CPT-33799 Level 2 Est. Patient 15:54:44 CDT Carmine benton MD [facility]-41506 Level 3 Est. Patient 21:46:01 VALUE STREAM COACH Mitch luis [facility] CPT-42610 Level 3 Est. Patient 22:15:50 CDT Mitch luis [facility] CPT-57739 Level 3 Est. Patient 10:48:15 CDT Mitch luis [facility] CPT-56832 Level 3 Est. Patient 23:20:57 CDT Tavo toure [facility]-27172 Level 3 Est. Patient 16:26:13 CDT Mitch Arnol luis [facility] Procedures Code Procedure Name Date Entry Date Standard Desc ription CPT-74719 Hemoccult IFOBT - LAB USE ONLY 10:27:22 CDT CPT-41058 Venipuncture Draw Fee 08:27:08 CDT CPT-80722 Liver Profile - LAB USE ONLY 08:27:07 CDT 2 CPT-91648 Microalbumin - LAB USE ONLY 08:27:07 CDT 20 25/05/09 CPT-74356 PT/INR - LAB USE ONLY 08:27:07 CDT CPT-93870 HGBA1C - LAB USE ONLY 08:27:07 CDT CPT-37379 CBC - LAB USE ONLY 08:27:07 CDT CPT-82635 Venipuncture Draw Fee 11:09:14 CDT CPT-83672 Venipuncture Draw Fee 08:32:21 VALUE STREAM COACH CPT-69914 Venipuncture Draw Fee 09:38:56 VALUE STREAM COACH CPT-04271 No Charge Offi Visit 21:36:07 CDT 1 CPT-93823 Venipuncture Draw Fee 10:13:28 VALUE STREAM COACH CPT-58133 Venipuncture Draw Fee 08:31:11 CDT CPT-28789 Aspir/Inject Med Joint 18:17:28 CDT CPT-12498 Venipuncture Draw Fee 10:13:30 CDT CPT-72109 Venipuncture Draw Fee 08:31:43 VALUE STREAM COACH CPT-JTINJ Joint Injection 18:34:50 CDT CPT-18183 Knee 3V 12:25:09 CDT CPT-04733 Venipuncture Draw Fee 12:15:57 CDT CPT-060 Medical Surveillance Exam 21:31:43 CDT 2011 CPT-24958 Venipuncture Draw Fee 08:32:05 VALUE STREAM COACH CPT-OV Office Visit 18:19:06 CDT
--- OUTSIDE RECORDS SUMMARY | 2020-01-18 11:56 | XMS REPORT | Clinical Summary ---
Author Author Admin, Mitch Leon Organization [facility] [place] [employer] Address Unknown Phone Unavailable Allergies, Adverse Reactions, [...] HISTORY COLON CANCER-MOTHER V16.0 Active 2 Renan aHys MD Family history of malignant neoplasm of [...] Coronary atherosclerosis of unspecified type of vessel, creek or graft EDEMA 782.3 Resolved Mitch [...] daily for high b lood pressure MINOXIDIL 96639584738 Active Mitch Urbina DO Ac tive METFORMIN HCL ER 500 MG ORAL TABLET EXTENDED RELEASE 2 4 HOUR 2 tablets by mouth twice daily METFORMIN HCL 57449874671 Active Mitch Urbina Active GLIMEPIRIDE 4 MG ORAL TABLET 1 tablet by mouth twice daily f or diabetes GLIMEPIRIDE 55006444303 Active Mitch Arnol Urbina Active GLIMEPIRIDE 2 MG ORAL TABLET 1 po BID GLIMEPI RIDE 13010262120 No Longer Active Mitch Urbina DO Active AMLODIPINE BESYLATE 5 MG ORAL TABLET 1 tablet by mouth daily AMLODIPINE BESYLATE 30490367912 Active Mitch Urbina DO Active PROVIGIL 200 MG ORAL TABLET 1/2 tab po q day MODA FINIL 39233603780 Active Renee Oconnor LPN Active FAMOTIDINE 20 MG ORAL TABLET by mouth twice a day 2017 FAMOTIDINE 25050833056 No Longer Active Mitch Urbina DO Active COLCRYS 0.6 MG ORAL TABLET 1 tab qid prn gout C OLCHICINE 63907040283 No Longer Active Mitch Urbina DO Active KEFLEX 500 MG ORAL CAPSULE 1 po qid CEPHALEXI N 30557835040 No Longer Active Mitch Urbina DO Active LOSARTAN POTASSIUM 100 MG ORAL TABLET 1 pill by mouth daily, for blood pressure LOSARTAN POTASSIUM 06892847128 Active Ana Ocampo Active AMLODIPINE BESYLATE 5 MG ORAL TABLET 1 tablet by mouth daily 201 01/20/04 AMLODIPINE BESYLATE 31781406799 No Longer Active Jillina Fra donaldo DIRECTOR OF EVENT MARKETING Active MITIGARE 0.6 MG ORAL CAPSULE 2 capsules at onset of go ut pain, then take one capsule at 1 hour if symptoms persist. COLCHICINE 59 635983244 Active Mitch Urbina DO Active COUMADIN 1 MG ORAL TABLET 2 tabs orally daily with the 5mg tab to equal 7mg daily WARFARIN SODIUM 96279638639 Active Renee Oconnor LPN Active INVOKANA 100 MG ORAL TABLET 1 tablet orally daily CANAGLIFLOZIN 57563738117 Active Renee Oconnoreder BURNETTN Active MECLIZINE HCL 25 MG ORAL TABLET 1 po tid 3 days, then 1/2 ta b tid 3 days MECLIZINE HCL 23905314217 No Longer Active Corey SEGURA Active ALLOPURINOL 300 MG ORAL TABLET Take 1 tablet by mouth daily 2012 ALLOPURINOL 05691392464 No Longer Active Corey SEGURA Active CLONIDINE HCL 0.1 MG ORAL TABLET 1 po bid 7 days, then 1/2 t ab po bid 7 days CLONIDINE HCL 38406132494 No Longer Active Corey SEGURA Active COUMADIN 5 MG ORAL TABLET 1 tab PO daily WARFAR IN SODIUM 19061901301 Active Renee Oconnor LPN Active COUMADIN 4 MG ORAL TABLET 1 tablet daily WARFAR IN SODIUM 38627038244 No Longer Active Corey SEGURA Active POLYTRIM 67395-6.1 UNIT/ML-% OPHTHALMIC SOLUTION 1 rui p in affected eye every 3 hours while awake x 7 days POLYMYXIN B-TRIMETHOP RIM 65336272291 No Longer Active Corey SEGURA Active LOSARTAN POTASSIUM-HCTZ 100-12.5 MG ORAL TABLET 1 by m outh daily for high blood pressure LOSARTAN POTASSIUM-HCTZ 47308905385 No Longer A ctive Mitch Urbina DO Active LISINOPRIL-HYDROCHLOROTHIAZIDE 20-12.5 MG ORAL TABLET 1 tab by m outh daily LISINOPRIL-HYDROCHLOROTHIAZIDE 58156116150 No Longer Active Mitch Urbina DO Active LISINOPRIL 20 MG ORAL TABLET 1 tab po at HS LIS INOPRIL 41063408092 No Longer Active Mitch Urbina DO Active COUMADIN 5 MG ORAL TABLET 1 by mouth every other day 2 WARFARIN SODIUM 91675616725 No Longer Active Mitch Urbina DO Active COUMADIN 6 MG ORAL TABLET 1 by mouth every other day 2 WARFARIN SODIUM 44645503854 No Longer Active Mitch Urbina DO Active SIMVASTATIN 40 MG ORAL TABLET 1 tab daily at bedtime SIMVASTATIN 46524363313 Active Mitch Urbina DO Active SIMVASTATIN 20 MG ORAL TABLET 1 tab daily at bedtime 2 SIMVASTATIN 63946836397 No Longer Active Mitch Urbina DO Active LOVENOX 100 MG/ML SUBCUTANEOUS SOLUTION One injection twice a da y ENOXAPARIN SODIUM 69186634457 No Longer Active Carmine Yusuf MD Active JANUVIA 50 MG ORAL TABLET Take one by mouth daily SITAGLIPTIN PHOSPHATE 92130493401 Active Renee Elvin DE LA ROSA Active JANUVIA 100 MG ORAL TABLET 1/2 by mouth every day 2011 SITAGLIPTIN PHOSPHATE 75056777990 No Longer Active Bijal Segal RN Acti ve METFORMIN HCL 500 MG ORAL TABLET 2 by mouth twice daily METFORMIN HCL 89130925901 No Longer Active Renee Oconnor LPN Active COLCRYS 0.6 MG ORAL TABLET 1 po q 6 hours prn gout pain COLCHICINE 52615130248 No Longer Active Camila Reese Active LISINOPRIL 5 MG ORAL TABLET 1 by mouth every day 11/17 LISINOPRIL 09252487560 No Longer Active Nguyen Perez Active KLOR-CON 20 MEQ ORAL PACKET Take one by mouth daily 09/10/08 POTASSIUM CHLORIDE 57307409929 No Longer Active Nguyen Perez Active FUROSEMIDE 40 MG ORAL TABLET 1 by mouth daily F UROSEMIDE 46421860255 No Longer Active Nguyen Perez Active PROVIGIL 100 MG ORAL TABLET Take one by mouth daily 08/20/04 MODAFINIL 41043648497 No Longer Active Mitch Urbina DO Active BACTRIM DS 800-160 MG ORAL TABLET 1 tab by mouth twice daily 201 10/19/09 TRIMETHOPRIM-SULFAMETHOXAZOLE 00030991910 No Longer Active Elian Hays MD Active ADULT ASPIRIN LOW STRENGTH 81 MG ORAL TABLET DISINTEGR ATING 1 by mouth every daily ASPIRIN 88545946372 Active Mitch Urbina DO Ac tive METOPROLOL TARTRATE 50 MG ORAL TABLET 1 by mouth twice daily METOPROLOL TARTRATE 55607593942 Active Maria Rivas RN Ac tive BACTRIM DS 800-160 MG ORAL TABLET 1 tab by mouth twice daily 201 10/19/09 BACTRIM DS 800-160 MG ORAL TABLET 126100 TRIMETHOPRIM-SULFAMETHOXAZOLE Inactive PROVIGIL 100 MG ORAL TABLET Take one by mouth daily 20 08/20/04 PROVIGIL 100 MG ORAL TABLET 924765 MODAFINIL Inactive FUROSEMIDE 40 MG ORAL TABLET 1 by mouth daily FUROSEMIDE 40 MG ORAL TABLET 650996 FUROSEMIDE Inactive KLOR-CON 20 MEQ ORAL PACKET Take one by mouth daily 20 09/10/08 KLOR- CON 20 MEQ ORAL PACKET 5628033 POTASSIUM CHLORIDE Inactive LISINOPRIL 5 MG ORAL TABLET 1 by mouth every day 11/17 LISINOPRIL 5 MG ORAL TABLET 158841 LISINOPRIL Inactive COLCRYS 0.6 MG ORAL TABLET 1 po q 6 hours prn gout pain COLCRYS 0.6 MG ORAL TABLET 037388 COLCHICINE Inactive JANUVIA 100 MG ORAL TABLET 1/2 by mouth every day 2011 JANUVIA 100 MG ORAL TABLET SITAGLIPTIN PHOSPHATE Inactive SIMVASTATIN 20 MG ORAL TABLET 1 tab daily at bedtime 2 SIMVASTATIN 20 MG ORAL TABLET 474752 SIMVASTATIN Inactive COUMADIN 6 MG ORAL TABLET 1 by mouth every other day 2 COUMADIN 6 MG ORAL TABLET 355727 WARFARIN SODIUM Inactive COUMADIN 5 MG ORAL TABLET 1 by mouth every other day 2 COUMADIN 5 MG ORAL TABLET 575611 WARFARIN SODIUM Inactive LISINOPRIL 20 MG ORAL TABLET 1 tab po at HS LISINOPRIL 20 MG ORAL TABLET 313617 LISINOPRIL Inactive LISINOPRIL-HYDROCHLOROTHIAZIDE 20-12.5 MG ORAL TABLET 1 tab by m outh daily LISINOPRIL-HYDROCHLOROTHIAZIDE 20-12.5 MG ORAL TABLET 942355 LISINOPRIL-HYDROCHLOROTHIAZIDE Inactive POLYTRIM 78133-0.1 UNIT/ML-% OPHTHALMIC SOLUTION 1 rui p in affected eye every 3 hours while awake x 7 days POLYTRIM 1000 0-0.1 UNIT/ML-% OPHTHALMIC SOLUTION 784219 POLYMYXIN B-TRIMETHOPRIM Inactive COUMADIN 4 MG ORAL TABLET 1 tablet daily COUMADIN 4 MG ORAL TABLET 006466 WARFARIN SODIUM Inactive CLONIDINE HCL 0.1 MG ORAL TABLET 1 po bid 7 days, then 1/2 t ab po bid 7 days CLONIDINE HCL 0.1 MG ORAL TABLET 302075 CLONIDIN E HCL Inactive ALLOPURINOL 300 MG ORAL TABLET Take 1 tablet by mouth daily 2012 ALLOPURINOL 300 MG ORAL TABLET 012154 ALLOPURINOL I nactive MECLIZINE HCL 25 MG ORAL TABLET 1 po tid 3 days, then 1/2 ta b tid 3 days MECLIZINE HCL 25 MG ORAL TABLET 807821 MECLIZINE HCL Inactive AMLODIPINE BESYLATE 5 MG ORAL TABLET 1 tablet by mouth daily 201 01/20/04 AMLODIPINE BESYLATE 5 MG ORAL TABLET 097919 AMLODIPINE BESYLATE Inactive KEFLEX 500 MG ORAL CAPSULE 1 po qid K EFLEX 500 MG ORAL CAPSULE 271814 CEPHALEXIN Inactive COLCRYS 0.6 MG ORAL TABLET 1 tab qid prn gout COLCRYS 0.6 MG ORAL TABLET 911908 COLCHICINE Inactive FAMOTIDINE 20 MG ORAL TABLET by mouth twice a day 2017 FAMOTIDINE 20 MG ORAL TABLET 585579 FAMOTIDINE Inactive GLIMEPIRIDE 2 MG ORAL TABLET 1 po BID GLIMEPIRIDE 2 MG ORAL TABLET 593093 GLIMEPIRIDE Inactive LOVENOX 100 MG/ML SUBCUTANEOUS SOLUTION One injection twice a da y LOVENOX 100 MG/ML SUBCUTANEOUS SOLUTION 358289 ENOXAPAR IN SODIUM Inactive Advance Directives Directive [...] Lab Report: CBC, MICROALB/CREAT W/RATIO - Hematology mean corpuscular volume, RBC 87 fL 80-97 leukocyte count, blood 6.7 10^3/MM^3 10*3/mm3 4.6-10.2 erythrocyte (RBC) count 5.26 10^6/MM^3 10*6/mm3 4.50-6.5 0 hemoglobin, blood 14.0 g/dL 14.0-18.0 hematocrit, blood 44.5 % 40.0-54.0 mean corpuscular volume, RBC 85 fL 80-97 mean corpuscular hemoglobin, RBC 26.6 pg 27. 0-31.2 mean corpuscular hemoglobin concentration, RBC 31.4 G/DL % 31.8-35.4 red blood cell distribution width 13.9 % 11 .6-14.8 platelet count 256 10^3/MM^3 10*3/mm3 251-211 4716/06/29 mean corpuscular hemoglobin, RBC 28.6 pg 27. 0-31.2 mean corpuscular hemoglobin concentration, RBC 32.7 G/DL % 31.8-35.4 red blood cell distribution width 16.2 % 11 .6-14.8 platelet count 238 10^3/MM^3 10*3/mm3 464-202 5680/06/29 hematocrit, blood 43.3 % 40.0-54.0 hemoglobin, blood [...] mg/dL Encounters Code Encounter Date Provider Facility CPT-18279 [id number] Vst-Est Level IV 10:06:35 CDT Stephy Urbina [facility] CPT-36437 [id number] Vst-Est Level IV 10:52:00 ENGINE MAINTENANCE MECHANIC Stephy Urbina [facility] CPT-05383 Level 3 Est. Patient 18:25:53 CDT Mitch Castellano janelle [facility] CPT-86640 Level 3 Est. Patient 19:43:34 CDT Mitch luis [facility] CPT-49531 Level 4 Est. Patient 09:30:18 CDT Mitch luis [facility] CPT-65266 Level 3 Est. Patient 15:10:14 CDT Joe Jason kamara [facility] CPT-08709 Level 3 Est. Patient 15:03:46 CDT Joe Jason kamara [facility] CPT-58711 Level 3 Est. Patient 14:21:06 CDT Mitch luis [facility] CPT-19144 Level 3 Est. Patient 14:52:06 CDT Joe Jason kamara [facility] CPT-64333 Level 3 Est. Patient 09:34:30 ENGINE MAINTENANCE MECHANIC Mitch luis [facility] CPT-15487 Level 3 Est. Patient 09:37:15 CDT Mitch luis [facility] CPT-23337 Level 3 Est. Patient 17:01:00 ENGINE MAINTENANCE MECHANIC Mitch luis [facility] CPT-83346 Level 3 Est. Patient 13:53:19 ENGINE MAINTENANCE MECHANIC Mitch luis [facility] CPT-20192 Level 3 Est. Patient 19:19:37 ENGINE MAINTENANCE MECHANIC Mitch luis [facility] CPT-15577 Level 3 Est. Patient 13:25:53 ENGINE MAINTENANCE MECHANIC Tavo toure MD [facility] CPT-78404 Level 3 Est. Patient 18:17:28 CDT Mitch luis [facility] CPT-76932 Level 3 Est. Patient 15:22:57 CDT Mitch luis [facility] CPT-66549 Level 3 Est. Patient 18:21:50 CDT Mitch luis [facility] CPT-56169 Level 3 Est. Patient 18:20:38 CDT Mitch luis [facility] CPT-87528 Level 3 Est. Patient 15:37:55 CDT Mitch luis [facility] CPT-78067 Level 2 Est. Patient 15:54:44 CDT Carmine benton MD [facility] CPT-42603 Level 3 Est. Patient 21:46:01 ENGINE MAINTENANCE MECHANIC Mitch luis [facility] CPT-11320 Level 3 Est. Patient 22:15:50 CDT Mitch luis [facility] CPT-13502 Level 3 Est. Patient 10:48:15 CDT Mitch luis [facility] CPT-78998 Level 3 Est. Patient 23:20:57 CDT Tavo toure MD [facility] CPT-67519 Level 3 Est. Patient 16:26:13 CDT Mitch Arnol luis [facility] Procedures Code Procedure Name Date Entry Date Standard Desc ription CPT-JTINJ Asp/Joint Injection 18:47:02 CDT CPT-57520 Venipuncture Draw Fee 09:26:17 CDT CPT-05465 PT/INR - LAB USE ONLY 13:32:49 ENGINE MAINTENANCE MECHANIC CPT-22042 Venipuncture Draw Fee 13:32:49 ENGINE MAINTENANCE MECHANIC CPT-07234 PT/INR - LAB USE ONLY 10:34:49 ENGINE MAINTENANCE MECHANIC CPT-14009 Venipuncture Draw Fee 10:34:48 ENGINE MAINTENANCE MECHANIC CPT-52975 PT/INR - LAB USE ONLY 09:22:03 ENGINE MAINTENANCE MECHANIC CPT-04463 Venipuncture Draw Fee 09:22:02 ENGINE MAINTENANCE MECHANIC CPT-18815 Hemoccult IFOBT - LAB USE ONLY 10:27:22 CDT CPT-78966 Venipuncture Draw Fee 08:27:08 CDT CPT-34853 Liver Profile - LAB USE ONLY 08:27:07 CDT 2 CPT-94674 Microalbumin - LAB USE ONLY 08:27:07 CDT 20 25/05/09 CPT-14680 PT/INR - LAB USE ONLY 08:27:07 CDT CPT-58257 HGBA1C - LAB USE ONLY 08:27:07 CDT CPT-46466 CBC - LAB USE ONLY 08:27:07 CDT CPT-60038 Venipuncture Draw Fee 11:09:14 CDT CPT-16003 Venipuncture Draw Fee 08:32:21 ENGINE MAINTENANCE MECHANIC CPT-41319 Venipuncture Draw Fee 09:38:56 ENGINE MAINTENANCE MECHANIC CPT-85904 No Charge Offi Visit 21:36:07 CDT 1 CPT-77264 Venipuncture Draw Fee 10:13:28 ENGINE MAINTENANCE MECHANIC CPT-04264 Venipuncture Draw Fee 08:31:11 CDT CPT-79303 Aspir/Inject Med Joint 18:17:28 CDT CPT-23122 Venipuncture Draw Fee 10:13:30 CDT CPT-93122 Venipuncture Draw Fee 08:31:43 ENGINE MAINTENANCE MECHANIC CPT-JTINJ Joint Injection 18:34:50 CDT CPT-11272 Knee 3V 12:25:09 CDT CPT-22605 Venipuncture Draw Fee 12:15:57 CDT CPT-060 Medical Surveillance Exam 21:31:43 CDT 2011 CPT-89582 Venipuncture Draw Fee 08:32:05 ENGINE MAINTENANCE MECHANIC CPT-OV Office Visit 18:19:06 CDT
--- OUTSIDE RECORDS SUMMARY | 2020-01-18 11:56 | XMS REPORT | Clinical Summary ---
Author Author Admin, Mitch Leon Organization [facility] [place] Address Unknown Phone Unavailable Allergies, Adverse Reactions, [...] Coronary atherosclerosis of unspecified type of vessel, [place] or graft EDEMA 782.3 Resolved Mitch [...] 30-34.9) Active Mitch Urbina DO Obesity, unspecified SEROMA ICD-998.13 Inactive Mitch Urbina DO REACTIVE [...] daily for high b lood pressure MINOXIDIL 58289878292 Active Mitch Urbina DO Ac tive METFORMIN HCL ER 500 MG ORAL TABLET EXTENDED RELEASE 2 4 HOUR 2 tablets by mouth twice daily METFORMIN HCL 49435685981 Active Mitch Urbina DO Active GLIMEPIRIDE 4 MG ORAL TABLET 1 tablet by mouth twice daily f or diabetes GLIMEPIRIDE 68598121537 Active Mitch Urbina DO Active GLIMEPIRIDE 2 MG ORAL TABLET 1 po BID GLIMEPI RIDE 05624321232 No Longer Active Mitch Urbina DO Active AMLODIPINE BESYLATE 5 MG ORAL TABLET 1 tablet by mouth daily AMLODIPINE BESYLATE 42770441662 Active Mitch Urbina DO Active PROVIGIL 200 MG ORAL TABLET 1/2 tab po q day MODA FINIL 67119215083 Active Renee Oconnor LPN Active FAMOTIDINE 20 MG ORAL TABLET by mouth twice a day 2017 FAMOTIDINE 62045447649 No Longer Active Mitch Urbina DO Active COLCRYS 0.6 MG ORAL TABLET 1 tab qid prn gout C OLCHICINE 04102641582 No Longer Active Mitch Urbina DO Active KEFLEX 500 MG ORAL CAPSULE 1 po qid CEPHALEXI N 44024581285 No Longer Active Mitch Urbina DO Active LOSARTAN POTASSIUM 100 MG ORAL TABLET 1 pill by mouth daily, for blood pressure LOSARTAN POTASSIUM 21569945170 Active Ana Ocampo Active AMLODIPINE BESYLATE 5 MG ORAL TABLET 1 tablet by mouth daily 201 01/20/04 AMLODIPINE BESYLATE 09160324548 No Longer Active Joe fulton APRN Active MITIGARE 0.6 MG ORAL CAPSULE 2 capsules at onset of go ut pain, then take one capsule at 1 hour if symptoms persist. COLCHICINE 59 853695518 Active Mitch Urbina DO Active COUMADIN 1 MG ORAL TABLET 2 tabs orally daily with the 5mg tab to equal 7mg daily WARFARIN SODIUM 08431127389 Active Renee Oconnor LPN Active INVOKANA 100 MG ORAL TABLET 1 tablet orally daily CANAGLIFLOZIN 98613639211 Active Renee Elvin DE LA ROSA Active MECLIZINE HCL 25 MG ORAL TABLET 1 po tid 3 days, then 1/2 ta b tid 3 days MECLIZINE HCL 99863487538 No Longer Active Corey SEGURA Active ALLOPURINOL 300 MG ORAL TABLET Take 1 tablet by mouth daily 2012 ALLOPURINOL 30892245993 No Longer Active Corey SEGURA Active CLONIDINE HCL 0.1 MG ORAL TABLET 1 po bid 7 days, then 1/2 t ab po bid 7 days CLONIDINE HCL 21844714462 No Longer Active Corey SEGURA Active COUMADIN 5 MG ORAL TABLET 1 tab PO daily WARFAR IN SODIUM 11412604016 Active Renee Oconnor LPN Active COUMADIN 4 MG ORAL TABLET 1 tablet daily WARFAR IN SODIUM 58625565504 No Longer Active Corey SEGURA Active POLYTRIM 10307-4.1 UNIT/ML-% OPHTHALMIC SOLUTION 1 rui p in affected eye every 3 hours while awake x 7 days POLYMYXIN B-TRIMETHOP RIM 58113347202 No Longer Active Corey SEGURA Active LOSARTAN POTASSIUM-HCTZ 100-12.5 MG ORAL TABLET 1 by m outh daily for high blood pressure LOSARTAN POTASSIUM-HCTZ 64531225104 No Longer A ctive Mitch Urbina DO Active LISINOPRIL-HYDROCHLOROTHIAZIDE 20-12.5 MG ORAL TABLET 1 tab by m outh daily LISINOPRIL-HYDROCHLOROTHIAZIDE 79035008704 No Longer Active Mitch Urbina DO Active LISINOPRIL 20 MG ORAL TABLET 1 tab po at HS LIS INOPRIL 94455004261 No Longer Active Mitch Urbina DO Active COUMADIN 5 MG ORAL TABLET 1 by mouth every other day 2 WARFARIN SODIUM 62500622512 No Longer Active Mitch Urbina DO Active COUMADIN 6 MG ORAL TABLET 1 by mouth every other day 2 WARFARIN SODIUM 39859876313 No Longer Active Mitch Urbina DO Active SIMVASTATIN 40 MG ORAL TABLET 1 tab daily at bedtime SIMVASTATIN 35048359328 Active Mitch Urbina DO Active SIMVASTATIN 20 MG ORAL TABLET 1 tab daily at bedtime 2 SIMVASTATIN 26592206904 No Longer Active Mitch Urbina DO Active LOVENOX 100 MG/ML SUBCUTANEOUS SOLUTION One injection twice a da y ENOXAPARIN SODIUM 95571726901 No Longer Active Carmine Yusuf MD Active JANUVIA 50 MG ORAL TABLET Take one by mouth daily SITAGLIPTIN PHOSPHATE 42189393471 Active Renee Oconnor LPN Active JANUVIA 100 MG ORAL TABLET 1/2 by mouth every day 2011 SITAGLIPTIN PHOSPHATE 37259933619 No Longer Active Bijal Segal RN Acti ve METFORMIN HCL 500 MG ORAL TABLET 2 by mouth twice daily METFORMIN HCL 66600117160 No Longer Active Renee Oconnor LPN Active COLCRYS 0.6 MG ORAL TABLET 1 po q 6 hours prn gout pain COLCHICINE 80232201068 No Longer Active Camila Reese Active LISINOPRIL 5 MG ORAL TABLET 1 by mouth every day 11/17 LISINOPRIL 30472945533 No Longer Active Nguyen Perez Active KLOR-CON 20 MEQ ORAL PACKET Take one by mouth daily 09/10/08 POTASSIUM CHLORIDE 44243201877 No Longer Active Nguyen Perez Active FUROSEMIDE 40 MG ORAL TABLET 1 by mouth daily F UROSEMIDE 26816298094 No Longer Active Nguyen Perez Active PROVIGIL 100 MG ORAL TABLET Take one by mouth daily 08/20/04 MODAFINIL 01669419565 No Longer Active Mitch Urbina DO Active BACTRIM DS 800-160 MG ORAL TABLET 1 tab by mouth twice daily 201 10/19/09 TRIMETHOPRIM-SULFAMETHOXAZOLE 41767500687 No Longer Active Elian Hays MD Active ADULT ASPIRIN LOW STRENGTH 81 MG ORAL TABLET DISINTEGR ATING 1 by mouth every daily ASPIRIN 42313857716 Active Mitch Urbina DO Ac tive METOPROLOL TARTRATE 50 MG ORAL TABLET 1 by mouth twice daily METOPROLOL TARTRATE 24899686794 Active Maria Rivas RN Ac tive BACTRIM DS 800-160 MG ORAL TABLET 1 tab by mouth twice daily 201 10/19/09 BACTRIM DS 800-160 MG ORAL TABLET 490303 TRIMETHOPRIM-SULFAMETHOXAZOLE Inactive PROVIGIL 100 MG ORAL TABLET Take one by mouth daily 08/20/04 PROVIGIL 100 MG ORAL TABLET 606180 MODAFINIL Inactive FUROSEMIDE 40 MG ORAL TABLET 1 by mouth daily FUROSEMIDE 40 MG ORAL TABLET 297350 FUROSEMIDE Inactive KLOR-CON 20 MEQ ORAL PACKET Take one by mouth daily 20 09/10/08 KLOR- CON 20 MEQ ORAL PACKET 0582943 POTASSIUM CHLORIDE Inactive LISINOPRIL 5 MG ORAL TABLET 1 by mouth every day 11/17 LISINOPRIL 5 MG ORAL TABLET 176804 LISINOPRIL Inactive COLCRYS 0.6 MG ORAL TABLET 1 po q 6 hours prn gout pain COLCRYS 0.6 MG ORAL TABLET 633974 COLCHICINE Inactive JANUVIA 100 MG ORAL TABLET 1/2 by mouth every day 2011 JANUVIA 100 MG ORAL TABLET SITAGLIPTIN PHOSPHATE Inactive SIMVASTATIN 20 MG ORAL TABLET 1 tab daily at bedtime 2 SIMVASTATIN 20 MG ORAL TABLET 685131 SIMVASTATIN Inactive COUMADIN 6 MG ORAL TABLET 1 by mouth every other day 2 COUMADIN 6 MG ORAL TABLET 485422 WARFARIN SODIUM Inactive COUMADIN 5 MG ORAL TABLET 1 by mouth every other day 2 COUMADIN 5 MG ORAL TABLET 456455 WARFARIN SODIUM Inactive LISINOPRIL 20 MG ORAL TABLET 1 tab po at HS LISINOPRIL 20 MG ORAL TABLET 877699 LISINOPRIL Inactive LISINOPRIL-HYDROCHLOROTHIAZIDE 20-12.5 MG ORAL TABLET 1 tab by m outh daily LISINOPRIL-HYDROCHLOROTHIAZIDE 20-12.5 MG ORAL TABLET 417391 LISINOPRIL-HYDROCHLOROTHIAZIDE Inactive POLYTRIM 02461-5.1 UNIT/ML-% OPHTHALMIC SOLUTION 1 rui p in affected eye every 3 hours while awake x 7 days POLYTRIM 1000 0-0.1 UNIT/ML-% OPHTHALMIC SOLUTION 664024 POLYMYXIN B-TRIMETHOPRIM Inactive COUMADIN 4 MG ORAL TABLET 1 tablet daily COUMADIN 4 MG ORAL TABLET 943427 WARFARIN SODIUM Inactive CLONIDINE HCL 0.1 MG ORAL TABLET 1 po bid 7 days, then 1/2 t ab po bid 7 days CLONIDINE HCL 0.1 MG ORAL TABLET 564613 CLONIDIN E HCL Inactive ALLOPURINOL 300 MG ORAL TABLET Take 1 tablet by mouth daily 2012 ALLOPURINOL 300 MG ORAL TABLET 586667 ALLOPURINOL I nactive MECLIZINE HCL 25 MG ORAL TABLET 1 po tid 3 days, then 1/2 ta b tid 3 days MECLIZINE HCL 25 MG ORAL TABLET 302494 MECLIZINE HCL Inactive AMLODIPINE BESYLATE 5 MG ORAL TABLET 1 tablet by mouth daily 201 01/20/04 AMLODIPINE BESYLATE 5 MG ORAL TABLET 665693 AMLODIPINE BESYLATE Inactive KEFLEX 500 MG ORAL CAPSULE 1 po qid K EFLEX 500 MG ORAL CAPSULE 608589 CEPHALEXIN Inactive COLCRYS 0.6 MG ORAL TABLET 1 tab qid prn gout COLCRYS 0.6 MG ORAL TABLET 515222 COLCHICINE Inactive FAMOTIDINE 20 MG ORAL TABLET by mouth twice a day 2017 FAMOTIDINE 20 MG ORAL TABLET 906530 FAMOTIDINE Inactive GLIMEPIRIDE 2 MG ORAL TABLET 1 po BID GLIMEPIRIDE 2 MG ORAL TABLET 573073 GLIMEPIRIDE Inactive LOVENOX 100 MG/ML SUBCUTANEOUS SOLUTION One injection twice a da y LOVENOX 100 MG/ML SUBCUTANEOUS SOLUTION 519343 ENOXAPAR IN SODIUM Inactive Advance Directives Directive [...] 11 .6-14.8 platelet count 256 10^3/MM^3 10*3/mm3 217-714 3065/06/29 mean corpuscular hemoglobin, RBC 28.6 pg 27. 0-31.2 mean corpuscular hemoglobin concentration, RBC 32.7 G/DL % 31.8-35.4 red blood cell distribution width 16.2 % 11 .6-14.8 platelet count 238 10^3/MM^3 10*3/mm3 298-017 3963/06/29 hematocrit, blood 43.3 % 40.0-54.0 hemoglobin, blood [...] mg/dL Encounters Code Encounter Date Provider Facility CPT-29346 [id number] Vst-Est Level IV 10:06:35 CDT Stephy Urbina [facility] CPT-18954 [id number] Vst-Est Level IV 10:52:00 [employer] Stephy Urbina [facility] CPT-08770 Level 3 Est. Patient 18:25:53 CDT Mitch Castellano janelle [facility] CPT-39974 Level 3 Est. Patient 19:43:34 CDT Mitch luis [facility] CPT-91040 Level 4 Est. Patient 09:30:18 CDT Mitch luis [facility] CPT-18243 Level 3 Est. Patient 15:10:14 CDT Joe Jason kamara [facility] CPT-97483 Level 3 Est. Patient 15:03:46 CDT Joe Jason kamara [facility] CPT-96247 Level 3 Est. Patient 14:21:06 CDT Mitch Castellano janelle [facility] CPT-71200 Level 3 Est. Patient 14:52:06 CDT Joe Jason kamara [facility] CPT-40032 Level 3 Est. Patient 09:34:30 [employer] Mitch luis [facility] CPT-14023 Level 3 Est. Patient 09:37:15 CDT Mitch ulis [facility] CPT-75015 Level 3 Est. Patient 17:01:00 [employer] Mitch luis [facility] CPT-66193 Level 3 Est. Patient 13:53:19 [employer] Mitch luis [facility] CPT-51490 Level 3 Est. Patient 19:19:37 [employer] Mitch luis [facility] CPT-68108 Level 3 Est. Patient 13:25:53 [employer] Tavo toure MD [facility] CPT-38273 Level 3 Est. Patient 18:17:28 CDT Mitch luis [facility] CPT-12674 Level 3 Est. Patient 15:22:57 CDT Mitch luis [facility] CPT-44024 Level 3 Est. Patient 18:21:50 CDT Mitch luis [facility] CPT-97996 Level 3 Est. Patient 18:20:38 CDT Mitch luis [facility] CPT-27544 Level 3 Est. Patient 15:37:55 CDT Mitch luis [facility] CPT-47223 Level 2 Est. Patient 15:54:44 CDT Carmine benton MD [facility] CPT-74481 Level 3 Est. Patient 21:46:01 [employer] Mitch luis [facility] CPT-99861 Level 3 Est. Patient 22:15:50 CDT Mitch luis [facility] CPT-10409 Level 3 Est. Patient 10:48:15 CDT Mitch luis [facility] CPT-90388 Level 3 Est. Patient 23:20:57 CDT Tavo toure MD [facility] CPT-90607 Level 3 Est. Patient 16:26:13 CDT Mitch Arnol luis [facility] Procedures Code Procedure Name Date Entry Date Standard Desc ription CPT-JTINJ Asp/Joint Injection 18:47:02 CDT CPT-80127 Venipuncture Draw Fee 09:26:17 CDT CPT-78626 PT/INR - LAB USE ONLY 13:32:49 [employer] CPT-80401 Venipuncture Draw Fee 13:32:49 [employer] CPT-59860 PT/INR - LAB USE ONLY 10:34:49 [employer] CPT-81437 Venipuncture Draw Fee 10:34:48 [employer] CPT-01614 PT/INR - LAB USE ONLY 09:22:03 [employer] CPT-78095 Venipuncture Draw Fee 09:22:02 [employer] CPT-57836 Hemoccult IFOBT - LAB USE ONLY 10:27:22 CDT CPT-26870 Venipuncture Draw Fee 08:27:08 CDT CPT-80039 Liver Profile - LAB USE ONLY 08:27:07 CDT 2 CPT-82491 Microalbumin - LAB USE ONLY 08:27:07 CDT 20 25/05/09 CPT-43843 PT/INR - LAB USE ONLY 08:27:07 CDT CPT-85904 HGBA1C - LAB USE ONLY 08:27:07 CDT CPT-50590 CBC - LAB USE ONLY 08:27:07 CDT CPT-98891 Venipuncture Draw Fee 11:09:14 CDT CPT-74896 Venipuncture Draw Fee 08:32:21 [employer] CPT-28423 Venipuncture Draw Fee 09:38:56 [employer] CPT-52442 No Charge Offi Visit 21:36:07 CDT 1 CPT-42182 Venipuncture Draw Fee 10:13:28 [employer] CPT-28769 Venipuncture Draw Fee 08:31:11 CDT CPT-81598 Aspir/Inject Med Joint 18:17:28 CDT CPT-03244 Venipuncture Draw Fee 10:13:30 CDT CPT-90500 Venipuncture Draw Fee 08:31:43 [employer] CPT-JTINJ Joint Injection 18:34:50 CDT CPT-06948 Knee 3V 12:25:09 CDT CPT-02770 Venipuncture Draw Fee 12:15:57 CDT CPT-060 Medical Surveillance Exam 21:31:43 CDT 2011 CPT-87044 Venipuncture Draw Fee 08:32:05 [employer] CPT-OV Office Visit 18:19:06 CDT
--- OUTSIDE RECORDS SUMMARY | 2020-01-18 11:56 | XMS REPORT | Clinical Summary ---
Author Author Admin, Mitch Leon Organization [facility] Address Unknown Phone Unavailable Allergies, Adverse [...] Coronary atherosclerosis of unspecified type of vessel, tulalip or graft EDEMA 782.3 Resolved Mitch Urbina [...] Mitch Urbina DO EDEMA ICD-782.3 Inactive Mitch Urbian DO DIZZINESS ICD-780.4 Inactive Mitch Urbina DO [...] 500 MG CAP 1 po qid CEPHALEXIN 970736229 20 No Longer Active Mitch Urbina DO Active LOSARTAN POTASSIUM 100 MG TABS 1 pill by mouth daily, for bl ood pressure LOSARTAN POTASSIUM 30312493308 Active Ana Wallace Active AMLODIPINE BESYLATE 5 MG TABS 1 tablet by mouth daily AMLODIPINE BESYLATE 61086097288 No Longer Active Joe Williamson APRN Active MITIGARE 0.6 MG ORAL CAPS 2 capsules at onset of gout pain, then take one capsule at 1 hour if symptoms persist. COLCHICINE 59 595833400 Active Mitch Urbina DO Active COUMADIN 1 MG TAB 2 tabs orally daily with the 5mg tab to equal 7mg daily WARFARIN SODIUM 21620441257 Active Mitch Urbina DO Active COLCRYS 0.6 MG TABS 1 tab qid prn gout COLCHICINE 38957452387 Active Norma Cazares Active INVOKANA 100 MG ORAL TABS 1 tablet orally daily CANAGLIFLOZIN 35717038825 Active Mitch Urbina DO Active MINOXIDIL 2.5 MG TABS 1 tablet daily for high blood pressure 10/23 MINOXIDIL 98120165531 Active Mitch Urbina DO Active MECLIZINE HCL 25 MG TAB 1 po tid 3 days, then 1/2 tab tid 3 days MECLIZINE HCL 82804507353 No Longer Active Corey SEGURA Active ALLOPURINOL 300 MG TABS Take 1 tablet by mouth daily 2 ALLOPURINOL 78995213889 No Longer Active Corey SEGURA Activ e CLONIDINE HCL 0.1 MG TABS 1 po bid 7 days, then 1/2 tab po b id 7 days CLONIDINE HCL 56737800834 No Longer Active Corey SEGURA Active COUMADIN 5 MG TABS 1 tab PO daily WARFARIN SODIUM 15199674651 Active Mitch Urbina DO Active COUMADIN 4 MG TABS 1 tablet daily WARFARIN SODI UM 82617520486 No Longer Active Corey SEGURA Active POLYTRIM 82723-5.1 UNIT/ML-% SOLN 1 drop in affected e ye every 3 hours while awake x 7 days POLYMYXIN B-TRIMETHOPRIM 34789802443 N o Longer Active Corey SEGURA Active LOSARTAN POTASSIUM-HCTZ 100-12.5 MG TABS 1 by mouth da rocky for high blood pressure LOSARTAN POTASSIUM-HCTZ 16318895726 No Longer A ctive Mitch Urbina DO Active LISINOPRIL-HYDROCHLOROTHIAZIDE 20-12.5 MG TABS 1 tab by mouth da rocky LISINOPRIL-HYDROCHLOROTHIAZIDE 07050782447 No Longer Active Mitch luis DO Active LISINOPRIL 20 MG TABS 1 tab po at HS LISINOPRIL 28611644386 No Longer Active Mitch Urbina DO Active COUMADIN 5 MG TABS 1 by mouth every other day WARFARIN SODIUM 32522941444 No Longer Active Mitch Urbina DO Active COUMADIN 6 MG TABS 1 by mouth every other day WARFARIN SODIUM 30662855269 No Longer Active Mitch Urbina DO Active SIMVASTATIN 40 MG TABS 1 tab daily at bedtime S IMVASTATIN 71717349626 Active Mitch Urbina DO Active SIMVASTATIN 20 MG TABS 1 tab daily at bedtime S IMVASTATIN 45407765830 No Longer Active Mitch Urbina DO Active LOVENOX 100 MG/ML SC SOLN One injection twice a day 09/15/15 ENOXAPARIN SODIUM 07896513075 No Longer Active Carmine Navarrete ctive JANUVIA 50 MG TABS Take one by mouth daily DIEGO GLIPTIN PHOSPHATE 54401267341 Active Mitch Urbina DO Active JANUVIA 100 MG TABS 1/2 by mouth every day DIEGO GLIPTIN PHOSPHATE 03621789101 No Longer Active Bijal Segal RN Active METFORMIN HCL 500 MG TABS 2 by mouth twice daily METFORMIN HCL 38050429560 Active Mitch Urbina DO Active GLIMEPIRIDE 4 MG TABS 1 tab po bid GLIMEPIRIDE 652129 90488 Active Mitch Urbina DO Active COLCRYS 0.6 MG TABS 1 po q 6 hours prn gout pain 03/02 COLCHICINE 32646200962 No Longer Active Camila Reese Active LISINOPRIL 5 MG TABS 1 by mouth every day LISIN OPRIL 00338390245 No Longer Active Nguyen Perez Active KLOR-CON 20 MEQ PACK Take one by mouth daily 8 POTASSIUM CHLORIDE 39457069904 No Longer Active Nguyen Perez Active FUROSEMIDE 40 MG TABS 1 by mouth daily FUROSEMI DE 17417829893 No Longer Active Nguyen Perez Active PROVIGIL 200 MG TABS 1/2 tab po q day MODAFINIL 43682 852285 Active Mitch Urbina DO Active PROVIGIL 100 MG TABS Take one by mouth daily MO DAFINIL 75918016324 No Longer Active Mitch Urbina DO Active BACTRIM DS 800-160 MG TAB 1 tab by mouth twice daily 2 TRIMETHOPRIM-SULFAMETHOXAZOLE 68971282418 No Longer Active Renan Hays MD Active FAMOTIDINE 20 MG TABS by mouth twice a day FAMOTI DINE 85209509799 Active Mitch Urbina DO Active ADULT ASPIRIN LOW STRENGTH 81 MG TBDP 1 by mouth every daily ASPIRIN 55304887062 Active Mitch Urbina DO Active METOPROLOL TARTRATE 50 MG TABS 1 by mouth twice daily METOPROLOL TARTRATE 90099312125 Active Mitch Urbina DO Active BACTRIM DS 800-160 MG TAB 1 tab by mouth twice daily 2 BACTRIM DS 800-160 MG TAB 938152 TRIMETHOPRIM-SULFAMETHOXAZOLE Inac tive PROVIGIL 100 MG TABS Take one by mouth daily 4 PROVIGIL 100 MG TABS 403473 MODAFINIL Inactive FUROSEMIDE 40 MG TABS 1 by mouth daily FU ROSEMIDE 40 MG TABS 310462 FUROSEMIDE Inactive KLOR-CON 20 MEQ PACK Take one by mouth daily 8 KLOR-CON 20 MEQ PACK POTASSIUM CHLORIDE Inactive LISINOPRIL 5 MG TABS 1 by mouth every day LISINOPRIL 5 MG TABS 898328 LISINOPRIL Inactive COLCRYS 0.6 MG TABS 1 po q 6 hours prn gout pain 03/02 COLCRYS 0.6 MG TABS 834727 COLCHICINE Inactive JANUVIA 100 MG TABS 1/2 by mouth every day JANUVI A 100 MG TABS SITAGLIPTIN PHOSPHATE Inactive SIMVASTATIN 20 MG TABS 1 tab daily at bedtime SIMVASTATIN 20 MG TABS 443698 SIMVASTATIN Inactive COUMADIN 6 MG TABS 1 by mouth every other day COUMADIN 6 MG TABS 099284 WARFARIN SODIUM Inactive COUMADIN 5 MG TABS 1 by mouth every other day COUMADIN 5 MG TABS 536931 WARFARIN SODIUM Inactive LISINOPRIL 20 MG TABS 1 tab po at HS KOKI NOPRIL 20 MG TABS 394685 LISINOPRIL Inactive LISINOPRIL-HYDROCHLOROTHIAZIDE 20-12.5 MG TABS 1 tab by mouth da rocky LISINOPRIL-HYDROCHLOROTHIAZIDE 20-12.5 MG TABS 059059 LISINOPRIL-HYDROCHLOROTHIAZIDE Inactive POLYTRIM 84044-5.1 UNIT/ML-% SOLN 1 drop in affected e ye every 3 hours while awake x 7 days POLYTRIM 68648-7.1 UNIT/ML-% SOLN 83823 7 POLYMYXIN B-TRIMETHOPRIM Inactive COUMADIN 4 MG TABS 1 tablet daily COUMADIN 4 MG TABS 792376 WARFARIN SODIUM Inactive CLONIDINE HCL 0.1 MG TABS 1 po bid 7 days, then 1/2 tab po b id 7 days CLONIDINE HCL 0.1 MG TABS 890797 CLONIDINE HCL I nactive ALLOPURINOL 300 MG TABS Take 1 tablet by mouth daily 2 ALLOPURINOL 300 MG TABS 903511 ALLOPURINOL Inactive MECLIZINE HCL 25 MG TAB 1 po tid 3 days, then 1/2 tab tid 3 days MECLIZINE HCL 25 MG TAB 348558 MECLIZINE HCL Inactive AMLODIPINE BESYLATE 5 MG TABS 1 tablet by mouth daily AMLODIPINE BESYLATE 5 MG TABS 290263 AMLODIPINE BESYLATE Inactive KEFLEX 500 MG CAP 1 po qid KEFLEX 500 MG CAP 30 9114 CEPHALEXIN Inactive LOVENOX 100 MG/ML SC SOLN One injection twice a day 09/15/15 LOVENOX 100 MG/ML SC SOLN 734814 ENOXAPARIN SODIUM Inactive Vital Signs Date Name [...] d blood pressure, diastolic 71 mm[Hg] BP maen blood pressure, systolic 155 mm[Hg] BP sys height E&M 70 [in_us] Bdy height pulse rate E&M 70 /min Heart rate temperature E&M 98.5 [degF] Body temp erature weight E&M 228 [lb_av] Weight Measure d Diagnostic Results Date Name Value Unit Range Description Lab Report: Basic Metabolic Panel - Chem istry sodium, serum 139 mmol/L 732-174 5147/07/17 potassium, serum 4.2 mmol/L 3.5-5.2 chloride, serum 102 mmol/L 98-107 carbon dioxide, venous blood 28.9 mmol/L 21.0-32 .0 blood glucose 211 mg/dL 65-110 calcium, serum 10.6 mg/dL 8.5-10.1 urea nitrogen, blood 29 mg/dL 7-18 creatinine, serum 1.24 mg/dL 0.60-1.30 sodium, serum 141 mmol/L 689-020 2109/08/07 potassium, serum 4.5 mmol/L 3.5-5.2 chloride, serum [...] ... - Chemistry sodium, serum 144 mmol/L 874-165 2183/06/12 carbon dioxide, venous blood 26.6 mmol/L 21.0-32 [...] 1.0-3.5 Encounters Code Encounter Date Provider Facility CPT-92466 Level 3 Est. Patient 18:25:53 CDT Mitch luis [facility] CPT-91715 Level 3 Est. Patient 19:43:34 CDT Mitch luis [facility] CPT-94151 Level 4 Est. Patient 09:30:18 CDT Mitch luis [facility] CPT-95225 Level 3 Est. Patient 15:10:14 CDT Joe Jason anh [facility] CPT-52332 Level 3 Est. Patient 15:03:46 CDT Joe Jason anh [facility] CPT-84752 Level 3 Est. Patient 14:21:06 CDT Mitch luis [facility] CPT-04635 Level 3 Est. Patient 14:52:06 CDT Joe Jason kamara [facility] CPT-68943 Level 3 Est. Patient 09:34:30 DISPLAY DEPARTMENT MANAGER Mitch luis [facility] CPT-32137 Level 3 Est. Patient 09:37:15 CDT Mitch luis [facility] CPT-49654 Level 3 Est. Patient 17:01:00 DISPLAY DEPARTMENT MANAGER Mitch luis [facility] CPT-32083 Level 3 Est. Patient 13:53:19 DISPLAY DEPARTMENT MANAGER Mitch luis [facility] CPT-53174 Level 3 Est. Patient 19:19:37 DISPLAY DEPARTMENT MANAGER Mitch luis [facility] CPT-98634 Level 3 Est. Patient 13:25:53 DISPLAY DEPARTMENT MANAGER Tavo toure MD [facility] CPT-87552 Level 3 Est. Patient 18:17:28 CDT Mitch luis [facility] CPT-62241 Level 3 Est. Patient 15:22:57 CDT Mitch luis [facility] CPT-77121 Level 3 Est. Patient 18:21:50 CDT Mitch luis [facility] CPT-85903 Level 3 Est. Patient 18:20:38 CDT Mitch Arnol luis [facility] CPT-95025 Level 3 Est. Patient 15:37:55 CDT Mitch luis [facility] CPT-40258 Level 2 Est. Patient 15:54:44 CDT Carmine benton MD [facility] CPT-06533 Level 3 Est. Patient 21:46:01 DISPLAY DEPARTMENT MANAGER Mitch luis [facility] CPT-26922 Level 3 Est. Patient 22:15:50 CDT Mitch luis [facility] CPT-07998 Level 3 Est. Patient 10:48:15 CDT Mitch luis [facility] CPT-31681 Level 3 Est. Patient 23:20:57 CDT Tavo toure MD [facility] CPT-97987 Level 3 Est. Patient 16:26:13 CDT Mitch Arnol luis [facility] Procedures Code Procedure Name Date Entry Date Standard Desc ription CPT-62035 Venipuncture Draw Fee 09:26:17 CDT CPT-95608 PT/INR - LAB USE ONLY 13:32:49 DISPLAY DEPARTMENT MANAGER CPT-86708 Venipuncture Draw Fee 13:32:49 DISPLAY DEPARTMENT MANAGER CPT-95095 PT/INR - LAB USE ONLY 10:34:49 DISPLAY DEPARTMENT MANAGER CPT-91168 Venipuncture Draw Fee 10:34:48 DISPLAY DEPARTMENT MANAGER CPT-40042 PT/INR - LAB USE ONLY 09:22:03 DISPLAY DEPARTMENT MANAGER CPT-30550 Venipuncture Draw Fee 09:22:02 DISPLAY DEPARTMENT MANAGER CPT-96616 Hemoccult IFOBT - LAB USE ONLY 10:27:22 CDT CPT-78646 Venipuncture Draw Fee 08:27:08 CDT CPT-22333 Liver Profile - LAB USE ONLY 08:27:07 CDT 2 CPT-49679 Microalbumin - LAB USE ONLY 08:27:07 CDT 20 25/05/09 CPT-59019 PT/INR - LAB USE ONLY 08:27:07 CDT CPT-25012 HGBA1C - LAB USE ONLY 08:27:07 CDT CPT-01420 CBC - LAB USE ONLY 08:27:07 CDT CPT-74161 Venipuncture Draw Fee 11:09:14 CDT CPT-96060 Venipuncture Draw Fee 08:32:21 DISPLAY DEPARTMENT MANAGER CPT-27230 Venipuncture Draw Fee 09:38:56 DISPLAY DEPARTMENT MANAGER CPT-91254 No Charge Offi Visit 21:36:07 CDT 1 CPT-16949 Venipuncture Draw Fee 10:13:28 DISPLAY DEPARTMENT MANAGER CPT-78490 Venipuncture Draw Fee 08:31:11 CDT CPT-93863 Aspir/Inject Med Joint 18:17:28 CDT CPT-05961 Venipuncture Draw Fee 10:13:30 CDT CPT-31823 Venipuncture Draw Fee 08:31:43 DISPLAY DEPARTMENT MANAGER CPT-JTINJ Joint Injection 18:34:50 CDT CPT-17083 Knee 3V 12:25:09 CDT CPT-58397 Venipuncture Draw Fee 12:15:57 CDT CPT-060 Medical Surveillance Exam 21:31:43 CDT 2011 CPT-80897 Venipuncture Draw Fee 08:32:05 DISPLAY DEPARTMENT MANAGER CPT-OV Office Visit 18:19:06 CDT
--- OUTSIDE RECORDS SUMMARY | 2020-01-18 11:57 | XMS REPORT | Clinical Summary ---
Author Author Admin, Mitch Leon Organization [facility] Address Unknown Phone Unavailable Allergies, [...] Coronary atherosclerosis of unspecified type of vessel, [place] or graft EDEMA 782.3 Resolved Mitch Urbina [...] RIGHT WRIST ICD-274.9 Inactive Mitch Ambrose Lenore serra DO BRUISE ICD-924.9 Inactive Mitch Ambrose Carlitos VELASQUEZ OLECRANON BURSITIS, RIGHT ICD-726.33 Inactive Mitch Arnol Carlitos UNSPECIFIED ANEMIA ICD-285.9 Inactive Mitch Ambrose Nona luis DO Malaise and fatigue ICD-780.79 Inactive Mitch Ambrose Carlitos Cough, chronic ICD-786.2 Inactive Mitch Tejeda O Sebaceous cyst, infected ICD-706.2 Inactive Mitch Arnol Carlitos VELASQUEZ Cellulitis ICD-682.9 Inactive Mitch Ambrose Carlitos VELASQUEZ 10/23 CELLULITIS, GROIN, LEFT ICD-682.2 Inactive Zoya Urbina DO Medication List Medication Instructions Start Date Stop Date Generic Name NDC Status Provider Patient Instruction GLIMEPIRIDE 2 MG ORAL TABLET 1 po BID GLIMEPIRID E 58301765807 Active Ana Wallace Active KEFLEX 500 MG ORAL CAPSULE 1 po qid CEPHALEXI N 51728060631 No Longer Active Mitch Urbina DO Active LOSARTAN POTASSIUM 100 MG ORAL TABLET 1 pill by mouth daily, for blood pressure LOSARTAN POTASSIUM 53285136401 Active Ana Wallace Active AMLODIPINE BESYLATE 5 MG ORAL TABLET 1 tablet by mouth daily 201 01/20/04 AMLODIPINE BESYLATE 80972163071 No Longer Active Devonjustincarlitos fulton ANNIE Active MITIGARE 0.6 MG ORAL CAPSULE 2 capsules at onset of go ut pain, then take one capsule at 1 hour if symptoms persist. COLCHICINE 59 019087655 Active Mitch Urbina DO Active COUMADIN 1 MG ORAL TABLET 2 tabs orally daily with the 5mg tab to equal 7mg daily WARFARIN SODIUM 79160205934 Active Ana Wallace Active COLCRYS 0.6 MG ORAL TABLET 1 tab qid prn gout C OLCHICINE 95840012083 Active Norma Cazares Active INVOKANA 100 MG ORAL TABLET 1 tablet orally daily CANAGLIFLOZIN 37538624653 Active Mitch Urbina DO Active MINOXIDIL 2.5 MG ORAL TABLET 1 tablet daily for high blood press ure MINOXIDIL 02295550739 Active Mitch Urbina DO Active MECLIZINE HCL 25 MG ORAL TABLET 1 po tid 3 days, then 1/2 ta b tid 3 days MECLIZINE HCL 75276854152 No Longer Active Corey SEGURA Active ALLOPURINOL 300 MG ORAL TABLET Take 1 tablet by mouth daily 2012 ALLOPURINOL 94829195635 No Longer Active Corey SEGURA Active CLONIDINE HCL 0.1 MG ORAL TABLET 1 po bid 7 days, then 1/2 t ab po bid 7 days CLONIDINE HCL 68538385352 No Longer Active Corey SEGURA Active COUMADIN 5 MG ORAL TABLET 1 tab PO daily WARFAR IN SODIUM 11464482386 Active Mitch Urbina DO Active COUMADIN 4 MG ORAL TABLET 1 tablet daily WARFAR IN SODIUM 55219510277 No Longer Active Corey SEGURA Active POLYTRIM 00715-5.1 UNIT/ML-% OPHTHALMIC SOLUTION 1 rui p in affected eye every 3 hours while awake x 7 days POLYMYXIN B-TRIMETHOP RIM 95395820549 No Longer Active Corey SEGURA Active LOSARTAN POTASSIUM-HCTZ 100-12.5 MG ORAL TABLET 1 by m outh daily for high blood pressure LOSARTAN POTASSIUM-HCTZ 91378703855 No Longer A ctive Mitch Urbina DO Active LISINOPRIL-HYDROCHLOROTHIAZIDE 20-12.5 MG ORAL TABLET 1 tab by m outh daily LISINOPRIL-HYDROCHLOROTHIAZIDE 93893798818 No Longer Active Mitch Urbina DO Active LISINOPRIL 20 MG ORAL TABLET 1 tab po at HS LIS INOPRIL 39070661039 No Longer Active Mitch Urbina DO Active COUMADIN 5 MG ORAL TABLET 1 by mouth every other day 2 WARFARIN SODIUM 69778200654 No Longer Active Mitch Urbina DO Active COUMADIN 6 MG ORAL TABLET 1 by mouth every other day 2 WARFARIN SODIUM 55641044113 No Longer Active Mitch Urbina DO Active SIMVASTATIN 40 MG ORAL TABLET 1 tab daily at bedtime SIMVASTATIN 31071284882 Active Mitch Urbina DO Active SIMVASTATIN 20 MG ORAL TABLET 1 tab daily at bedtime 2 SIMVASTATIN 70916792386 No Longer Active Mitch Urbina DO Active LOVENOX 100 MG/ML SUBCUTANEOUS SOLUTION One injection twice a da y ENOXAPARIN SODIUM 74624266898 No Longer Active Carmine Yusuf MD Active JANUVIA 50 MG ORAL TABLET Take one by mouth daily SITAGLIPTIN PHOSPHATE 81772031416 Active Mitch Urbina DO Active JANUVIA 100 MG ORAL TABLET 1/2 by mouth every day 2011 SITAGLIPTIN PHOSPHATE 22685199100 No Longer Active Bijal Segal RN Acti ve METFORMIN HCL 500 MG ORAL TABLET 2 by mouth twice daily METFORMIN HCL 26569945864 Active Mitch Urbina DO Active COLCRYS 0.6 MG ORAL TABLET 1 po q 6 hours prn gout pain COLCHICINE 81705655806 No Longer Active Camila Reese Active LISINOPRIL 5 MG ORAL TABLET 1 by mouth every day 11/17 LISINOPRIL 28907963014 No Longer Active Nguyen Coekman Active KLOR-CON 20 MEQ ORAL PACKET Take one by mouth daily 09/10/08 POTASSIUM CHLORIDE 02267552380 No Longer Active Nguyen Perez Active FUROSEMIDE 40 MG ORAL TABLET 1 by mouth daily F UROSEMIDE 73569021158 No Longer Active Nguyen Coekman Active PROVIGIL 200 MG ORAL TABLET 1/2 tab po q day MODA FINIL 84252192811 Active Mitch Urbina DO Active PROVIGIL 100 MG ORAL TABLET Take one by mouth daily 08/20/04 MODAFINIL 54654772177 No Longer Active Mitch Urbina DO Active BACTRIM DS 800-160 MG ORAL TABLET 1 tab by mouth twice daily 201 10/19/09 TRIMETHOPRIM-SULFAMETHOXAZOLE 94297354708 No Longer Active Elian Hays MD Active FAMOTIDINE 20 MG ORAL TABLET by mouth twice a day FAMOTIDINE 05289206161 Active Mitch Urbina DO Active ADULT ASPIRIN LOW STRENGTH 81 MG ORAL TABLET DISINTEGR ATING 1 by mouth every daily ASPIRIN 52420148895 Active Mitch Urbina DO Ac tive METOPROLOL TARTRATE 50 MG ORAL TABLET 1 by mouth twice daily METOPROLOL TARTRATE 90017804035 Active Mitch Urbina DO Active BACTRIM DS 800-160 MG ORAL TABLET 1 tab by mouth twice daily 201 10/19/09 BACTRIM DS 800-160 MG ORAL TABLET 492824 TRIMETHOPRIM-SULFAMETHOXAZOLE Inactive PROVIGIL 100 MG ORAL TABLET Take one by mouth daily 08/20/04 PROVIGIL 100 MG ORAL TABLET 151190 MODAFINIL Inactive FUROSEMIDE 40 MG ORAL TABLET 1 by mouth daily FUROSEMIDE 40 MG ORAL TABLET 406280 FUROSEMIDE Inactive KLOR-CON 20 MEQ ORAL PACKET Take one by mouth daily 09/10/08 KLOR- CON 20 MEQ ORAL PACKET 4498539 POTASSIUM CHLORIDE Inactive LISINOPRIL 5 MG ORAL TABLET 1 by mouth every day 11/17 LISINOPRIL 5 MG ORAL TABLET 613576 LISINOPRIL Inactive COLCRYS 0.6 MG ORAL TABLET 1 po q 6 hours prn gout pain COLCRYS 0.6 MG ORAL TABLET 651288 COLCHICINE Inactive JANUVIA 100 MG ORAL TABLET 1/2 by mouth every day 2011 JANUVIA 100 MG ORAL TABLET SITAGLIPTIN PHOSPHATE Inactive SIMVASTATIN 20 MG ORAL TABLET 1 tab daily at bedtime 2 SIMVASTATIN 20 MG ORAL TABLET 753604 SIMVASTATIN Inactive COUMADIN 6 MG ORAL TABLET 1 by mouth every other day 2 COUMADIN 6 MG ORAL TABLET 069341 WARFARIN SODIUM Inactive COUMADIN 5 MG ORAL TABLET 1 by mouth every other day 2 COUMADIN 5 MG ORAL TABLET 596751 WARFARIN SODIUM Inactive LISINOPRIL 20 MG ORAL TABLET 1 tab po at HS LISINOPRIL 20 MG ORAL TABLET 650892 LISINOPRIL Inactive LISINOPRIL-HYDROCHLOROTHIAZIDE 20-12.5 MG ORAL TABLET 1 tab by m outh daily LISINOPRIL-HYDROCHLOROTHIAZIDE 20-12.5 MG ORAL TABLET 069040 LISINOPRIL-HYDROCHLOROTHIAZIDE Inactive POLYTRIM 91693-4.1 UNIT/ML-% OPHTHALMIC SOLUTION 1 rui p in affected eye every 3 hours while awake x 7 days POLYTRIM 1000 0-0.1 UNIT/ML-% OPHTHALMIC SOLUTION 359780 POLYMYXIN B-TRIMETHOPRIM Inactive COUMADIN 4 MG ORAL TABLET 1 tablet daily COUMADIN 4 MG ORAL TABLET 794975 WARFARIN SODIUM Inactive CLONIDINE HCL 0.1 MG ORAL TABLET 1 po bid 7 days, then 1/2 t ab po bid 7 days CLONIDINE HCL 0.1 MG ORAL TABLET 592862 CLONIDIN E HCL Inactive ALLOPURINOL 300 MG ORAL TABLET Take 1 tablet by mouth daily 2012 ALLOPURINOL 300 MG ORAL TABLET 946476 ALLOPURINOL I nactive MECLIZINE HCL 25 MG ORAL TABLET 1 po tid 3 days, then 1/2 ta b tid 3 days MECLIZINE HCL 25 MG ORAL TABLET 080743 MECLIZINE HCL Inactive AMLODIPINE BESYLATE 5 MG ORAL TABLET 1 tablet by mouth daily 201 01/20/04 AMLODIPINE BESYLATE 5 MG ORAL TABLET 585523 AMLODIPINE BESYLATE Inactive KEFLEX 500 MG ORAL CAPSULE 1 po qid K EFLEX 500 MG ORAL CAPSULE 857205 CEPHALEXIN Inactive LOVENOX 100 MG/ML SUBCUTANEOUS SOLUTION One injection twice a da y LOVENOX 100 MG/ML SUBCUTANEOUS SOLUTION 824068 ENOXAPAR IN SODIUM Inactive Vital Signs Date [...] - Chem istry sodium, serum 139 mmol/L 070-889 6091/07/17 potassium, serum 4.2 mmol/L 3.5-5.2 chloride, serum 102 mmol/L 98-107 carbon dioxide, venous blood 28.9 mmol/L 21.0-32 .0 blood glucose 211 mg/dL 65-110 calcium, serum 10.6 mg/dL 8.5-10.1 urea nitrogen, blood 29 mg/dL 7-18 creatinine, serum 1.24 mg/dL 0.60-1.30 sodium, serum 141 mmol/L 621-662 7703/08/07 potassium, serum 4.5 mmol/L 3.5-5.2 chloride, serum [...] ... - Chemistry sodium, serum 144 mmol/L 267-953 0240/06/12 creatinine, serum 1.32 mg/dL 0.55-1.30 alanine aminotransferase (SGPT), serum 32 U/L 12-78 aspartate aminotransferase (SGOT), serum 27 U/L 15-37 calcium, serum 10.5 mg/dL 8.5-10.1 bilirubin, serum, total 0.70 mg/dL 0.00-1.00 TSH 2.49 m[iU]/mL 0.36-3.74 prostate specific antigen 3.14 ng/mL 0.00-4.00 carbon dioxide, venous blood 26.6 mmol/L 21.0-32 .0 potassium, serum 4.2 mmol/L 3.5-5.2 chloride, serum 105 mmol/L 98-107 blood glucose 192 mg/dL 65-110 urea nitrogen, blood 27 mg/dL 7-18 Lab Report: Lipid Panel, HEPATIC PANEL, HGBA1C - Chemistry cholesterol, serum 136 mg/dL 250-931 5285/12/06 triglyceride, serum, fasting 247 mg/dL 30-200 HDL [...] ratio (INR) 2.4 1.0-3.5 prothrombin time (patient) 19.9 SECS s 11.1-13.4 Encounters Code Encounter Date Provider Facility CPT-39387 Level 3 Est. Patient 18:25:53 CDT Mitch luis [facility] CPT-43404 Level 3 Est. Patient 19:43:34 CDT Mitch luis [facility] CPT-75411 Level 4 Est. Patient 09:30:18 CDT Mitch luis [facility] CPT-40367 Level 3 Est. Patient 15:10:14 [facility]T [facility] CPT-84559 Level 3 Est. Patient 15:03:46 CDT Joe kamara [facility] CPT-24180 Level 3 Est. Patient 14:21:06 CDT Mitch luis [facility] CPT-23090 Level 3 Est. Patient 14:52:06 CDT Joe kamara [facility] CPT-59998 Level 3 Est. Patient 09:34:30 SPEECH TEACHER Mitch luis [facility] CPT-24470 Level 3 Est. Patient 09:37:15 CDT Mitch W L ee [facility] CPT-43986 Level 3 Est. Patient 17:01:00 SPEECH TEACHER Mitch W L ee DO [facility] CPT-63143 Level 3 Est. Patient 13:53:19 SPEECH TEACHER Mitch W L ee DO [facility] CPT-72372 Level 3 Est. Patient 19:19:37 SPEECH TEACHER Mitch W L ee DO [facility] CPT-09907 Level 3 Est. Patient 13:25:53 SPEECH TEACHER Tavo toure MD [facility] CPT-96691 Level 3 Est. Patient 18:17:28 CDT Mitch W L ee [facility] CPT-65505 Level 3 Est. Patient 15:22:57 CDT Mitch W L ee [facility] CPT-08013 Level 3 Est. Patient 18:21:50 CDT Mitch W L ee [facility] CPT-19778 Level 3 Est. Patient 18:20:38 CDT Mitch W L ee [facility] CPT-63169 Level 3 Est. Patient 15:37:55 CDT Mitch W L ee [facility] CPT-27295 Level 2 Est. Patient 15:54:44 CDT Carmine benton MD [facility]-54923 Level 3 Est. Patient 21:46:01 SPEECH TEACHER Mitch W L ee [facility] CPT-19953 Level 3 Est. Patient 22:15:50 CDT Mitch W L ee [facility] CPT-75238 Level 3 Est. Patient 10:48:15 CDT Mitch W L ee [facility] CPT-59441 Level 3 Est. Patient 23:20:57 CDT Tavo toure MD [facility] CPT-07892 Level 3 Est. Patient 16:26:13 CDT Mitch Castellano [facility] Procedures Code Procedure Name Date Entry Date Standard Desc ription CPT-09855 Venipuncture Draw Fee 09:26:17 CDT CPT-41829 PT/INR - LAB USE ONLY 13:32:49 SPEECH TEACHER CPT-74899 Venipuncture Draw Fee 13:32:49 SPEECH TEACHER CPT-08337 PT/INR - LAB USE ONLY 10:34:49 SPEECH TEACHER CPT-80104 Venipuncture Draw Fee 10:34:48 SPEECH TEACHER CPT-93582 PT/INR - LAB USE ONLY 09:22:03 SPEECH TEACHER CPT-68770 Venipuncture Draw Fee 09:22:02 SPEECH TEACHER CPT-82349 Hemoccult IFOBT - LAB USE ONLY 10:27:22 CDT CPT-31475 Venipuncture Draw Fee 08:27:08 CDT CPT-76822 Liver Profile - LAB USE ONLY 08:27:07 CDT 2 CPT-20994 Microalbumin - LAB USE ONLY 08:27:07 CDT 20 25/05/09 CPT-98792 PT/INR - LAB USE ONLY 08:27:07 CDT CPT-01380 HGBA1C - LAB USE ONLY 08:27:07 CDT CPT-91280 CBC - LAB USE ONLY 08:27:07 CDT CPT-56008 Venipuncture Draw Fee 11:09:14 CDT CPT-52652 Venipuncture Draw Fee 08:32:21 SPEECH TEACHER CPT-96779 Venipuncture Draw Fee 09:38:56 SPEECH TEACHER CPT-01991 No Charge Offi Visit 21:36:07 CDT 1 CPT-41976 Venipuncture Draw Fee 10:13:28 SPEECH TEACHER CPT-92353 Venipuncture Draw Fee 08:31:11 CDT CPT-34159 Aspir/Inject Med Joint 18:17:28 CDT CPT-52339 Venipuncture Draw Fee 10:13:30 CDT CPT-22152 Venipuncture Draw Fee 08:31:43 SPEECH TEACHER CPT-JTINJ Joint Injection 18:34:50 CDT CPT-84683 Knee 3V 12:25:09 CDT CPT-98793 Venipuncture Draw Fee 12:15:57 CDT CPT-060 Medical Surveillance Exam 21:31:43 CDT 2011 CPT-75971 Venipuncture Draw Fee 08:32:05 SPEECH TEACHER CPT-OV Office Visit 18:19:06 CDT
--- OUTSIDE RECORDS SUMMARY | 2020-01-18 11:57 | XMS REPORT | Clinical Summary ---
Author Author Admin, Mitch Leon Organization [facility] Address Unknown Phone Unavailable [...] Coronary atherosclerosis of unspecified type of vessel, [place] or graft EDEMA 782.3 Resolved Mitch Urbina [...] Cough Sebaceous cyst, infected 706.2 Resolved Mitch Urbina DO Sebaceous cyst Cellulitis 682.9 Resolved [...] Lenore e DO BRUISE ICD-924.9 Inactive Mitch Uribna DO OLECRANON BURSITIS, RIGHT ICD-726.33 Inactive Mitch [...] ( 6mg total ) 2015 WARFARIN SODIUM 41646817263 Active Jannette Alcides RMA Act juan INVOKANA 100 MG ORAL TABS 1 tablet orally daily CANAGLIFLOZIN 37754569906 Active Kathie Juan RPT,RMA Active MINOXIDIL 2.5 MG TABS 1 tablet daily for high blood pressure 10/23 MINOXIDIL 43465554304 Active Mitch Urbina DO Active AMLODIPINE BESYLATE 5 MG TABS 1 tablet by mouth daily AMLODIPINE BESYLATE 20199898699 Active Domi Rivera MA Active MECLIZINE HCL 25 MG TAB 1 po tid 3 days, then 1/2 tab tid 3 days MECLIZINE HCL 30650229530 No Longer Active Corey SEGURA Active ALLOPURINOL 300 MG TABS Take 1 tablet by mouth daily 2 ALLOPURINOL 55922889902 No Longer Active Corey SEGURA Activ e CLONIDINE HCL 0.1 MG TABS 1 po bid 7 days, then 1/2 tab po b id 7 days CLONIDINE HCL 22358762776 No Longer Active Corey SEGURA Active COUMADIN 5 MG TABS 1 tab PO daily WARFARIN SODIUM 33651768308 Active Domi Rivera MA Active COUMADIN 4 MG TABS 1 tablet daily WARFARIN SODI UM 14931880667 No Longer Active Corey SEGURA Active POLYTRIM 72802-4.1 UNIT/ML-% SOLN 1 drop in affected e ye every 3 hours while awake x 7 days POLYMYXIN B-TRIMETHOPRIM 60371505567 N o Longer Active Corey SEGURA Active LOSARTAN POTASSIUM-HCTZ 100-12.5 MG TABS 1 by mouth [place] for high blood pressure LOSARTAN POTASSIUM-HCTZ 30370447714 Active Domi Rivera MA Active LISINOPRIL-HYDROCHLOROTHIAZIDE 20-12.5 MG TABS 1 tab by mouth da [place] LISINOPRIL-HYDROCHLOROTHIAZIDE 10401162873 No Longer Active Mitch luis DO Active LISINOPRIL 20 MG TABS 1 tab po at HS LISINOPRIL 20849789350 No Longer Active Mitch Urbina DO Active COUMADIN 5 MG TABS 1 by mouth every other day WARFARIN SODIUM 35612555717 No Longer Active Mitch Urbina DO Active COUMADIN 6 MG TABS 1 by mouth every other day WARFARIN SODIUM 36803607858 No Longer Active Mitch Urbina DO Active COLCRYS 0.6 MG TABS 1 tab qid prn gout COLCHICINE 53804630588 Active Corey SEGURA Active SIMVASTATIN 40 MG TABS 1 tab daily at bedtime S IMVASTATIN 12944979076 Active Domi Rivera MA Active SIMVASTATIN 20 MG TABS 1 tab daily at bedtime S IMVASTATIN 68353604348 No Longer Active Mitch Urbina DO Active LOVENOX 100 MG/ML SC SOLN One injection twice a day 09/15/15 ENOXAPARIN SODIUM 41456812070 No Longer Active Carmine Navarrete ctive JANUVIA 50 MG TABS Take one by mouth daily DIEGO GLIPTIN PHOSPHATE 76689537113 Active Domi Rivera MA Active JANUVIA 100 MG TABS 1/2 by mouth every day DIEGO GLIPTIN PHOSPHATE 70968636830 No Longer Active Bijal Segal RN Active METFORMIN HCL 500 MG TABS 2 by mouth twice daily METFORMIN HCL 66398639350 Active Domi Rivera MA Active GLIMEPIRIDE 4 MG TABS 1 tab po bid GLIMEPIRIDE 835014 21095 Active Domi Rivera MA Active COLCRYS 0.6 MG TABS 1 po q 6 hours prn gout pain 03/02 COLCHICINE 28553657847 No Longer Active Camila Reese Active LISINOPRIL 5 MG TABS 1 by mouth every day LISIN OPRIL 46646742873 No Longer Active Nguyen Perez Active KLOR-CON 20 MEQ PACK Take one by mouth daily 8 POTASSIUM CHLORIDE 47371700837 No Longer Active Nguyen Perez Active FUROSEMIDE 40 MG TABS 1 by mouth daily FUROSEMI DE 15648919768 No Longer Active Nguyen Perez Active PROVIGIL 200 MG TABS 1/2 tab po q day MODAFINIL 77886 658159 Active Domi Rivera MA Active PROVIGIL 100 MG TABS Take one by mouth daily MO DAFINIL 00676823973 No Longer Active Mitch Urbina DO Active BACTRIM DS 800-160 MG TAB 1 tab by mouth twice daily 2 TRIMETHOPRIM-SULFAMETHOXAZOLE 22249825422 No Longer Active Renan Hays MD Active FAMOTIDINE 20 MG TABS by mouth twice a day FAMOTI DINE 88843118207 Active Mitch Urbina DO Active ADULT ASPIRIN LOW STRENGTH 81 MG TBDP 1 by mouth every daily ASPIRIN 25240917629 Active Mitch Urbina DO Active METOPROLOL TARTRATE 50 MG TABS 1 by mouth twice daily METOPROLOL TARTRATE 16756958417 Active Domi Rivera MA Active BACTRIM DS 800-160 MG TAB 1 tab by mouth twice daily 2 BACTRIM DS 800-160 MG TAB 287049 TRIMETHOPRIM-SULFAMETHOXAZOLE Inac tive PROVIGIL 100 MG TABS Take one by mouth daily 4 PROVIGIL 100 MG TABS 517328 MODAFINIL Inactive FUROSEMIDE 40 MG TABS 1 by mouth daily FU ROSEMIDE 40 MG TABS 162359 FUROSEMIDE Inactive KLOR-CON 20 MEQ PACK Take one by mouth daily 8 KLOR-CON 20 MEQ PACK 832411 POTASSIUM CHLORIDE Inactive LISINOPRIL 5 MG TABS 1 by mouth every day LISINOPRIL 5 MG TABS 267196 LISINOPRIL Inactive COLCRYS 0.6 MG TABS 1 po q 6 hours prn gout pain 03/02 COLCRYS 0.6 MG TABS 686129 COLCHICINE Inactive JANUVIA 100 MG TABS 1/2 by mouth every day JANUVI A 100 MG TABS SITAGLIPTIN PHOSPHATE Inactive SIMVASTATIN 20 MG TABS 1 tab daily at bedtime SIMVASTATIN 20 MG TABS 433075 SIMVASTATIN Inactive COUMADIN 6 MG TABS 1 by mouth every other day COUMADIN 6 MG TABS 008170 WARFARIN SODIUM Inactive COUMADIN 5 MG TABS 1 by mouth every other day COUMADIN 5 MG TABS 590813 WARFARIN SODIUM Inactive LISINOPRIL 20 MG TABS 1 tab po at HS KOKI NOPRIL 20 MG TABS 212937 LISINOPRIL Inactive LISINOPRIL-HYDROCHLOROTHIAZIDE 20-12.5 MG TABS 1 tab by mouth da rocky LISINOPRIL-HYDROCHLOROTHIAZIDE 20-12.5 MG TABS 208297 LISINOPRIL-HYDROCHLOROTHIAZIDE Inactive POLYTRIM 19043-7.1 UNIT/ML-% SOLN 1 drop in affected e ye every 3 hours while awake x 7 days POLYTRIM 97102-2.1 UNIT/ML-% SOLN 97574 7 POLYMYXIN B-TRIMETHOPRIM Inactive COUMADIN 4 MG TABS 1 tablet daily COUMADIN 4 MG TABS 227809 WARFARIN SODIUM Inactive CLONIDINE HCL 0.1 MG TABS 1 po bid 7 days, then 1/2 tab po b id 7 days CLONIDINE HCL 0.1 MG TABS 372154 CLONIDINE HCL I nactive ALLOPURINOL 300 MG TABS Take 1 tablet by mouth daily 2 ALLOPURINOL 300 MG TABS 623636 ALLOPURINOL Inactive MECLIZINE HCL 25 MG TAB 1 po tid 3 days, then 1/2 tab tid 3 days MECLIZINE HCL 25 MG TAB 966967 MECLIZINE HCL Inactive LOVENOX 100 MG/ML SC SOLN One injection twice a day 09/15/15 LOVENOX 100 MG/ML SC SOLN 636462 ENOXAPARIN SODIUM Inactive Vital Signs Date Name [...] Range Description Chart Maintenance: Hemoccult added to [facility] - Chemistry occult blood, stool (E&M) [...] 142-424 Lab Report: CBC W/DIFF - Hematology leukocyte [...] Ag - Chemistry sodium, serum 141 mmol/L 613-989 2573/07/06 potassium, serum 4.4 mmol/L 3.5-5.2 chloride, serum [...] - Chem istry sodium, serum 136 mmol/L 084-441 3878/01/14 carbon dioxide, venous blood 25.4 mmol/L 21.0-32 [...] 7.0 % 4.3-6.0 cholesterol, serum 120 mg/dL 869-834 5608/07/06 triglyceride, serum, fasting 186 mg/dL 30-200 HDL [...] 1.0-3.5 Encounters Code Encounter Date Provider Facility CPT-02485 Level 3 Est. Patient 09:34:30 FOUNDRY OPERATOR Mitch Ambrose L janelle [facility] CPT-40174 Level 3 Est. Patient 09:37:15 CDT Mitch W L janelle [facility] CPT-93285 Level 3 Est. Patient 17:01:00 FOUNDRY OPERATOR Mitch W L janelle [facility] CPT-50276 Level 3 Est. Patient 13:53:19 FOUNDRY OPERATOR Mitch W L janelle [facility] CPT-21215 Level 3 Est. Patient 19:19:37 FOUNDRY OPERATOR Mitch W L janelle [facility] CPT-20258 Level 3 Est. Patient 13:25:53 FOUNDRY OPERATOR Tavo toure MD [facility] CPT-74935 Level 3 Est. Patient 18:17:28 CDT Mitch W L jnaelle [facility] CPT-47903 Level 3 Est. Patient 15:22:57 CDT Mitch Arnol L janelle [facility] CPT-31190 Level 3 Est. Patient 18:21:50 CDT Mitch W L ee [facility] CPT-83217 Level 3 Est. Patient 18:20:38 CDT Mitch W L ee [facility] CPT-99423 Level 3 Est. Patient 15:37:55 CDT Mitch W L ee [facility] CPT-47777 Level 2 Est. Patient 15:54:44 CDT Carmine benton MD [facility] CPT-46422 Level 3 Est. Patient 21:46:01 FOUNDRY OPERATOR Mitch W L ee [facility] CPT-95957 Level 3 Est. Patient 22:15:50 CDT Mitch luis [facility] CPT-12894 Level 3 Est. Patient 10:48:15 CDT Mitch luis [facility] CPT-29258 Level 3 Est. Patient 23:20:57 CDT Tavo toure MD [facility] CPT-67447 Level 3 Est. Patient 16:26:13 CDT Mitch luis [facility] Procedures Code Procedure Name Date Entry Date Standard Desc ription CPT-16605 Venipuncture Draw Fee 08:32:21 FOUNDRY OPERATOR CPT-88954 Venipuncture Draw Fee 09:38:56 FOUNDRY OPERATOR CPT-70470 No Charge Offi Visit 21:36:07 CDT 1 CPT-71085 Venipuncture Draw Fee 10:13:28 FOUNDRY OPERATOR CPT-94824 Venipuncture Draw Fee 08:31:11 CDT CPT-11625 Aspir/Inject Med Joint 18:17:28 CDT CPT-19746 Venipuncture Draw Fee 10:13:30 CDT CPT-52158 Venipuncture Draw Fee 08:31:43 FOUNDRY OPERATOR CPT-JTINJ Joint Injection 18:34:50 CDT CPT-23163 Knee 3V 12:25:09 CDT CPT-87510 Venipuncture Draw Fee 12:15:57 CDT CPT-060 Medical Surveillance Exam 21:31:43 CDT 2011 CPT-69202 Venipuncture Draw Fee 08:32:05 FOUNDRY OPERATOR CPT-OV Office Visit 18:19:06 CDT
--- OUTSIDE RECORDS SUMMARY | 2020-01-18 11:57 | XMS REPORT | Clinical Summary ---
Author Author Admin, Mitch Leon Organization [facility] Address Unknown Phone Unavailable Allergies, Adverse [...] of vessel, hopland or graft EDEMA 782.3 Active Mitch Urbina [...] Anemia, unspecified Malaise and fatigue 780.79 Active Blessing Le RMA Other malaise and fatigue Cough, chronic 786.2 Active Tavo Hilton MD Cough Sebaceous cyst, infected 706.2 Active Jeffreyo dav SEGURA Sebaceous cyst Cellulitis 682.9 Active Mitch Urbina DO Cellulitis and abscess of unspecified sites Medication List Medication Instructions Start Date Stop Date Generic Name NDC Status Provider Patient Instruction AMLODIPINE BESYLATE 5 MG TABS 1 tablet by mouth daily AMLODIPINE BESYLATE 76573753751 Active Mitch Urbina DO Active MECLIZINE HCL 25 MG TAB 1 po tid 3 days, then 1/2 tab tid 3 days MECLIZINE HCL 76608096936 No Longer Active Corey SEGURA Active ALLOPURINOL 300 MG TABS Take 1 tablet by mouth daily 2 ALLOPURINOL 91974601234 No Longer Active Corey SEGURA Activ e CLONIDINE HCL 0.1 MG TABS 1 po bid 7 days, then 1/2 tab po b id 7 days CLONIDINE HCL 27516655700 No Longer Active Corey SEGURA Active COUMADIN 5 MG TABS 1 tab PO daily WARFARIN SODIUM 06792101904 Active Mitch Urbina DO Active COUMADIN 4 MG TABS 1 tablet daily WARFARIN SODI UM 05241258022 No Longer Active Corey SEGURA Active POLYTRIM 01000-5.1 UNIT/ML-% SOLN 1 drop in affected e ye every 3 hours while awake x 7 days POLYMYXIN B-TRIMETHOPRIM 16209927542 N o Longer Active Corey SEGURA Active LOSARTAN POTASSIUM-HCTZ 100-12.5 MG TABS 1 by mouth da rocky for high blood pressure LOSARTAN POTASSIUM-HCTZ 17845608993 Active Stephy Urbina DO Active LISINOPRIL-HYDROCHLOROTHIAZIDE 20-12.5 MG TABS 1 tab by mouth da rocky LISINOPRIL-HYDROCHLOROTHIAZIDE 77129798388 No Longer Active Mitch luis DO Active LISINOPRIL 20 MG TABS 1 tab po at HS LISINOPRIL 01036183337 No Longer Active Mitch Urbina DO Active COUMADIN 5 MG TABS 1 by mouth every other day WARFARIN SODIUM 87160476676 No Longer Active Mitch Urbina DO Active COUMADIN 6 MG TABS 1 by mouth every other day WARFARIN SODIUM 53530418994 No Longer Active Mitch Urbina DO Active COLCRYS 0.6 MG TABS 1 tab qid prn gout COLCHICINE 92359705947 Active Corey SEGURA Active SIMVASTATIN 40 MG TABS 1 tab daily at bedtime S IMVASTATIN 72366499738 Active Mitch Urbina DO Active SIMVASTATIN 20 MG TABS 1 tab daily at bedtime S IMVASTATIN 39364988103 No Longer Active Mitch Urbina DO Active LOVENOX 100 MG/ML SC SOLN One injection twice a day 09/15/15 ENOXAPARIN SODIUM 84104472416 No Longer Active Carmine Navarrete ctive JANUVIA 50 MG TABS Take one by mouth daily DIEGO GLIPTIN PHOSPHATE 50920197941 Active Corey Arias PA Active JANUVIA 100 MG TABS 1/2 by mouth every day DIEGO GLIPTIN PHOSPHATE 20043639532 No Longer Active Bijalseth Segal RN Active METFORMIN HCL 500 MG TABS 2 by mouth twice daily METFORMIN HCL 05914710557 Active Mitch Urbina DO Active GLIMEPIRIDE 4 MG TABS 1 tab po bid GLIMEPIRIDE 938353 57779 Active Mitch Urbina DO Active COLCRYS 0.6 MG TABS 1 po q 6 hours prn gout pain 03/02 COLCHICINE 01514893767 No Longer Active Camila Reese Active LISINOPRIL 5 MG TABS 1 by mouth every day LISIN OPRIL 12974760927 No Longer Active Nguyen Perez Active KLOR-CON 20 MEQ PACK Take one by mouth daily 8 POTASSIUM CHLORIDE 09557459877 No Longer Active Nguyen Perez Active FUROSEMIDE 40 MG TABS 1 by mouth daily FUROSEMI DE 29024842343 No Longer Active Nguyen Perez Active PROVIGIL 200 MG TABS 1/2 tab po q day MODAFINIL 05994 928194 Active Mitch Urbina DO Active PROVIGIL 100 MG TABS Take one by mouth daily MO DAFINIL 68479062785 No Longer Active Mitch Urbina DO Active BACTRIM DS 800-160 MG TAB 1 tab by mouth twice daily 2 TRIMETHOPRIM-SULFAMETHOXAZOLE 54800535009 No Longer Active Renan Hays MD Active FAMOTIDINE 20 MG TABS by mouth twice a day FAMOTI DINE 71967282647 Active Mitch Urbina DO Active ADULT ASPIRIN LOW STRENGTH 81 MG TBDP 1 by mouth every daily ASPIRIN 37876670625 Active Mitch Urbina DO Active METOPROLOL TARTRATE 50 MG TABS 1 by mouth twice daily METOPROLOL TARTRATE 77538486615 Active Mitch W Carlitos DO Active BACTRIM DS 800-160 MG TAB 1 tab by mouth twice daily 2 BACTRIM DS 800-160 MG TAB TRIMETHOPRIM-SULFAMETHOXAZOLE Inac tive PROVIGIL 100 MG TABS Take one by mouth daily 4 PROVIGIL 100 MG TABS 352154 MODAFINIL Inactive FUROSEMIDE 40 MG TABS 1 by mouth daily FU ROSEMIDE 40 MG TABS 993610 FUROSEMIDE Inactive KLOR-CON 20 MEQ PACK Take one by mouth daily 8 KLOR-CON 20 MEQ PACK 427568 POTASSIUM CHLORIDE Inactive LISINOPRIL 5 MG TABS 1 by mouth every day LISINOPRIL 5 MG TABS 800852 LISINOPRIL Inactive COLCRYS 0.6 MG TABS 1 po q 6 hours prn gout pain 03/02 COLCRYS 0.6 MG TABS COLCHICINE Inactive JANUVIA 100 MG TABS 1/2 by mouth every day JANUVI A 100 MG TABS SITAGLIPTIN PHOSPHATE Inactive SIMVASTATIN 20 MG TABS 1 tab daily at bedtime SIMVASTATIN 20 MG TABS 926064 SIMVASTATIN Inactive COUMADIN 6 MG TABS 1 by mouth every other day COUMADIN 6 MG TABS 439394 WARFARIN SODIUM Inactive COUMADIN 5 MG TABS 1 by mouth every other day COUMADIN 5 MG TABS 134974 WARFARIN SODIUM Inactive LISINOPRIL 20 MG TABS 1 tab po at HS KOKI NOPRIL 20 MG TABS 300477 LISINOPRIL Inactive LISINOPRIL-HYDROCHLOROTHIAZIDE 20-12.5 MG TABS 1 tab by mouth da rocky LISINOPRIL-HYDROCHLOROTHIAZIDE 20-12.5 MG TABS 884817 LISINOPRIL-HYDROCHLOROTHIAZIDE Inactive POLYTRIM 64052-1.1 UNIT/ML-% SOLN 1 drop in affected e ye every 3 hours while awake x 7 days POLYTRIM 02321-7.1 UNIT/ML-% SOLN 70672 7 POLYMYXIN B-TRIMETHOPRIM Inactive COUMADIN 4 MG TABS 1 tablet daily COUMADIN 4 MG TABS 191960 WARFARIN SODIUM Inactive CLONIDINE HCL 0.1 MG TABS 1 po bid 7 days, then 1/2 tab po b id 7 days CLONIDINE HCL 0.1 MG TABS 596466 CLONIDINE HCL I nactive ALLOPURINOL 300 MG TABS Take 1 tablet by mouth daily 2 ALLOPURINOL 300 MG TABS 263419 ALLOPURINOL Inactive MECLIZINE HCL 25 MG TAB 1 po tid 3 days, then 1/2 tab tid 3 days MECLIZINE HCL 25 MG TAB 787188 MECLIZINE HCL Inactive LOVENOX 100 MG/ML SC SOLN One injection twice a day 09/15/15 LOVENOX 100 MG/ML SC SOLN 072215 ENOXAPARIN SODIUM Inactive Vital Signs Date Name Value Unit Range Description blood pressure, diastolic - 8462-4 74 mm[Hg] [...] 142-424 Lab Report: CBC, Comp. Metabolic Panel, HGBA1C, MICROALBUMIN, Uric Acid - Chemistry albumin/creatinine ratio, urine < 30 mg/g mg/g{creat} 0-2 9 uric acid, serum 10.3 mg/dL 2.6-7.2 sodium, serum 136 mmol/L 350-576 5795/07/25 potassium, serum 4.6 mmol/L 3.5-5.2 chloride, serum 100 mmol/L 98-107 carbon dioxide, venous blood 29.4 mmol/L 21.0-32 .0 blood glucose 183 mg/dL 65-110 urea nitrogen, blood 25 mg/dL 7-18 creatinine, serum 1.30 mg/dL 0.60-1.30 alanine aminotransferase (SGPT), serum 36 U/L 12-78 aspartate aminotransferase (SGOT), serum 26 U/L 15-37 alkaline phosphatase, serum 50 U/L 50-136 calcium, serum 10.2 mg/dL 8.5-10.1 bilirubin, serum, total 0.90 mg/dL 0.00-1.00 hemoglobin A1C, blood, as % of total hemoglobin 7.7 % 4.3-6.0 Lab Report: CBC, Comp. Metabolic Panel, HGBA1C, MICROALBUMIN, Uric Acid - Hematology leukocyte count, blood 6.6 10^3/MM^3 10*3/mm3 4.6-10.2 erythrocyte (RBC) count 5.02 10^6/MM^3 10*6/mm3 4.69-6.1 3 hemoglobin, blood 12.8 g/dL 13.5-17.5 hematocrit, blood 40.1 % 41.0-53.0 mean corpuscular volume, RBC 80 fL 80-97 mean corpuscular hemoglobin, RBC 25.6 pg 27. 0-31.2 mean corpuscular hemoglobin concentration, RBC 32.0 G/DL % 31.8-35.4 red blood cell distribution width 18.3 % 11 .6-14.8 platelet count 277 10^3/MM^3 10*3/mm3 142-424 Lab Report: CBC, Comp. Metabolic Panel, HGBA1C, MICROALBUMIN, Uric Acid - Lab microalbumin, urine 30 0-19 Lab Report: Comp. Metabolic Panel, HGBA1 C, Lipid Panel - Chemistry sodium, serum 137 mmol/L 534-603 5944/11/14 potassium, serum 4.4 mmol/L 3.5-5.2 chloride, serum 100 mmol/L 98-107 carbon dioxide, venous blood 33.0 mmol/L 21.0-32 .0 blood glucose 181 mg/dL 65-110 urea nitrogen, blood 28 mg/dL 7-18 creatinine, serum 1.30 mg/dL 0.60-1.30 alanine aminotransferase (SGPT), serum 38 U/L 12-78 aspartate aminotransferase (SGOT), serum 34 U/L 15-37 calcium, serum 10.4 mg/dL 8.5-10.1 bilirubin, serum, total 0.90 mg/dL 0.00-1.00 hemoglobin A1C, blood, as % of total hemoglobin 8.0 % 4.3-6.0 cholesterol, serum 130 mg/dL 783-311 7198/11/14 triglyceride, serum, fasting 288 mg/dL 30-200 HDL cholesterol, serum 33 mg/dL 32-96 LDL cholesterol, serum 39 mg/dL 0-130 Lab Report: Comp. Metabolic Panel, HGBA1 C, Lipid Panel, Prothrombin Time - Chemistry sodium, serum 136 mmol/L 133-379 8687/12/02 potassium, serum 4.4 mmol/L 3.5-5.2 chloride, serum 101 mmol/L 98-107 carbon dioxide, venous blood 29.0 mmol/L 21.0-32 .0 blood glucose 149 mg/dL 65-110 urea nitrogen, blood 29 mg/dL 7-18 creatinine, serum 1.20 mg/dL 0.60-1.30 alanine aminotransferase (SGPT), serum 46 U/L 12-78 aspartate aminotransferase (SGOT), serum 34 U/L 15-37 calcium, serum 10.3 mg/dL 8.5-10.1 bilirubin, serum, total 0.60 mg/dL 0.00-1.00 hemoglobin A1C, blood, as % of total hemoglobin 7.6 % 4.3-6.0 cholesterol, serum 117 mg/dL 372-952 8205/12/02 triglyceride, serum, fasting 226 mg/dL 30-200 HDL cholesterol, serum 30 mg/dL 32-96 LDL cholesterol, serum 42 mg/dL 0-130 Lab Report: Comp. Metabolic Panel, HGBA1 C, Lipid Panel, Prothrombin Time - Coagulation prothrombin time (patient) 16.3 SECS s 11.1-13.4 international normalized ratio (INR) 1.7 1.0-3.5 Lab Report: HGBA1C - Chemistry hemoglobin A1C, blood, as % of total hemoglobin 7.3 % 4.3-6.0 Lab Report: Prothrombin Time - Coagulati on prothrombin time (patient) 18.4 SECS s 11.1-13.4 international normalized ratio (INR) 2.2 1.0-3.5 prothrombin time (patient) 16.0 SECS s 11.1-13.4 international normalized ratio (INR) 1.7 1.0-3.5 prothrombin time (patient) 18.6 SECS s 11.1-13.4 international normalized ratio (INR) 2.2 1.0-3.5 prothrombin time (patient) 20.1 SECS s 11.1-13.4 international normalized ratio (INR) 2.6 1.0-3.5 prothrombin time (patient) 19.9 SECS s 11.1-13.4 international normalized ratio (INR) 2.6 1.0-3.5 Encounters Code Encounter Date Provider Facility CPT-38274 Level 3 Est. Patient 17:01:00 VALIDATION INTERN Mitch luis [facility] CPT-46685 Level 3 Est. Patient 13:53:19 VALIDATION INTERN Mitch luis [facility] CPT-74349 Level 3 Est. Patient 19:19:37 VALIDATION INTERN Mitch luis [facility] CPT-03023 Level 3 Est. Patient 13:25:53 VALIDATION INTERN Tavo toure MD [facility] CPT-24045 Level 3 Est. Patient 18:17:28 CDT Mitch luis [facility] CPT-12233 Level 3 Est. Patient 15:22:57 CDT Mitch luis [facility] CPT-63189 Level 3 Est. Patient 18:21:50 CDT Mitch luis [facility] CPT-55356 Level 3 Est. Patient 18:20:38 CDT Mitch luis [facility] CPT-63046 Level 3 Est. Patient 15:37:55 CDT Mitch Ambrose L ee [facility] CPT-38823 Level 2 Est. Patient 15:54:44 CDT Carmine benton MD [facility] CPT-75794 Level 3 Est. Patient 21:46:01 VALIDATION INTERN Mitch luis [facility] CPT-95223 Level 3 Est. Patient 22:15:50 CDT Mitch Arnol luis [facility] CPT-05801 Level 3 Est. Patient 10:48:15 CDT Mitch Arnol luis [facility] CPT-18868 Level 3 Est. Patient 23:20:57 CDT Tavo toure MD [facility] CPT-22714 Level 3 Est. Patient 16:26:13 CDT Mitch Castellano janelle [facility] Procedures Code Procedure Name Date Entry Date Standard Desc ription CPT-44112 Venipuncture Draw Fee 10:13:28 VALIDATION INTERN CPT-21815 Venipuncture Draw Fee 08:31:11 CDT CPT-18266 Aspir/Inject Med Joint 18:17:28 CDT CPT-04124 Venipuncture Draw Fee 10:13:30 CDT CPT-08702 Venipuncture Draw Fee 08:31:43 VALIDATION INTERN CPT-JTINJ Joint Injection 18:34:50 CDT CPT-30085 Knee 3V 12:25:09 CDT CPT-82810 Venipuncture Draw Fee 12:15:57 CDT CPT-060 Medical Surveillance Exam 21:31:43 CDT 2011 CPT-77005 Venipuncture Draw Fee 08:32:05 VALIDATION INTERN CPT-OV Office Visit 18:19:06 CDT
--- OUTSIDE RECORDS SUMMARY | 2020-01-18 11:57 | XMS REPORT | Clinical Summary ---
Author Author Admin, Mitch Leon Organization [facility] Address Unknown Phone Unavailable Allergies, Adverse Reactions, [...] Coronary atherosclerosis of unspecified type of vessel, sioux or graft EDEMA 782.3 Resolved Mitch Urbina [...] daily for high b lood pressure MINOXIDIL 82196448477 Active Mitch Urbina DO Ac tive METFORMIN HCL ER 500 MG ORAL TABLET EXTENDED RELEASE 2 4 HOUR 2 tablets by mouth twice daily METFORMIN HCL 38642713171 Active Mitch Urbina Active GLIMEPIRIDE 4 MG ORAL TABLET 1 tablet by mouth twice daily f or diabetes GLIMEPIRIDE 20282402727 Active Mitch Arnol Urbina Active GLIMEPIRIDE 2 MG ORAL TABLET 1 po BID GLIMEPI RIDE 75649811256 No Longer Active Mitch Urbina DO Active AMLODIPINE BESYLATE 5 MG ORAL TABLET 1 tablet by mouth daily AMLODIPINE BESYLATE 11787190266 Active Mitch Urbina DO Active PROVIGIL 200 MG ORAL TABLET 1/2 tab po q day MODA FINIL 07190052839 Active Renee Oconnor LPN Active FAMOTIDINE 20 MG ORAL TABLET by mouth twice a day 2017 FAMOTIDINE 25495199240 No Longer Active Mitch Urbina DO Active COLCRYS 0.6 MG ORAL TABLET 1 tab qid prn gout C OLCHICINE 56348837708 No Longer Active Mitch Urbina DO Active KEFLEX 500 MG ORAL CAPSULE 1 po qid CEPHALEXI N 80695328096 No Longer Active Mitch Urbina DO Active LOSARTAN POTASSIUM 100 MG ORAL TABLET 1 pill by mouth daily, for blood pressure LOSARTAN POTASSIUM 49593280648 Active Ana Ocampo Active AMLODIPINE BESYLATE 5 MG ORAL TABLET 1 tablet by mouth daily 201 01/20/04 AMLODIPINE BESYLATE 16836110754 No Longer Active Jillina Fra donaldo FIRE ALARM OPERATOR Active MITIGARE 0.6 MG ORAL CAPSULE 2 capsules at onset of go ut pain, then take one capsule at 1 hour if symptoms persist. COLCHICINE 59 824457220 Active Mitch Urbina DO Active COUMADIN 1 MG ORAL TABLET 2 tabs orally daily with the 5mg tab to equal 7mg daily WARFARIN SODIUM 56075747247 Active Renee Oconnor LPN Active INVOKANA 100 MG ORAL TABLET 1 tablet orally daily CANAGLIFLOZIN 45730273036 Active Renee Oconnoreder BURNETTN Active MECLIZINE HCL 25 MG ORAL TABLET 1 po tid 3 days, then 1/2 ta b tid 3 days MECLIZINE HCL 91353305800 No Longer Active Corey SEGURA Active ALLOPURINOL 300 MG ORAL TABLET Take 1 tablet by mouth daily 2012 ALLOPURINOL 82395562434 No Longer Active Corey SEGURA Active CLONIDINE HCL 0.1 MG ORAL TABLET 1 po bid 7 days, then 1/2 t ab po bid 7 days CLONIDINE HCL 46126646405 No Longer Active Corey SEGURA Active COUMADIN 5 MG ORAL TABLET 1 tab PO daily WARFAR IN SODIUM 69767213740 Active Renee Oconnor LPN Active COUMADIN 4 MG ORAL TABLET 1 tablet daily WARFAR IN SODIUM 15505145197 No Longer Active Corey SEGURA Active POLYTRIM 20970-5.1 UNIT/ML-% OPHTHALMIC SOLUTION 1 rui p in affected eye every 3 hours while awake x 7 days POLYMYXIN B-TRIMETHOP RIM 65491357434 No Longer Active Corey SEGURA Active LOSARTAN POTASSIUM-HCTZ 100-12.5 MG ORAL TABLET 1 by m outh daily for high blood pressure LOSARTAN POTASSIUM-HCTZ 04337910578 No Longer A ctive Mitch Urbina DO Active LISINOPRIL-HYDROCHLOROTHIAZIDE 20-12.5 MG ORAL TABLET 1 tab by m outh daily LISINOPRIL-HYDROCHLOROTHIAZIDE 14031512014 No Longer Active Mitch Urbina DO Active LISINOPRIL 20 MG ORAL TABLET 1 tab po at HS LIS INOPRIL 61286020893 No Longer Active Mitch Urbina DO Active COUMADIN 5 MG ORAL TABLET 1 by mouth every other day 2 WARFARIN SODIUM 38895919091 No Longer Active Mitch Urbina DO Active COUMADIN 6 MG ORAL TABLET 1 by mouth every other day 2 WARFARIN SODIUM 37397760984 No Longer Active Mitch Urbina DO Active SIMVASTATIN 40 MG ORAL TABLET 1 tab daily at bedtime SIMVASTATIN 07242000021 Active Mitch Urbina DO Active SIMVASTATIN 20 MG ORAL TABLET 1 tab daily at bedtime 2 SIMVASTATIN 98871274535 No Longer Active Mitch Urbina DO Active LOVENOX 100 MG/ML SUBCUTANEOUS SOLUTION One injection twice a da y ENOXAPARIN SODIUM 95324036377 No Longer Active Carmine Yusuf MD Active JANUVIA 50 MG ORAL TABLET Take one by mouth daily SITAGLIPTIN PHOSPHATE 08508233524 Active Renee Elvin DE LA ROSA Active JANUVIA 100 MG ORAL TABLET 1/2 by mouth every day 2011 SITAGLIPTIN PHOSPHATE 20696125529 No Longer Active Bijal Segal RN Acti ve METFORMIN HCL 500 MG ORAL TABLET 2 by mouth twice daily METFORMIN HCL 12455777468 No Longer Active Renee Oconnor LPN Active COLCRYS 0.6 MG ORAL TABLET 1 po q 6 hours prn gout pain COLCHICINE 97068918184 No Longer Active Camila Reese Active LISINOPRIL 5 MG ORAL TABLET 1 by mouth every day 11/17 LISINOPRIL 10119578847 No Longer Active Nguyen Perez Active KLOR-CON 20 MEQ ORAL PACKET Take one by mouth daily 09/10/08 POTASSIUM CHLORIDE 37609461139 No Longer Active Nguyen Perez Active FUROSEMIDE 40 MG ORAL TABLET 1 by mouth daily F UROSEMIDE 64491430125 No Longer Active Nguyen Perez Active PROVIGIL 100 MG ORAL TABLET Take one by mouth daily 08/20/04 MODAFINIL 20420630534 No Longer Active Mitch Urbina DO Active BACTRIM DS 800-160 MG ORAL TABLET 1 tab by mouth twice daily 201 10/19/09 TRIMETHOPRIM-SULFAMETHOXAZOLE 76009574865 No Longer Active Elian Hays MD Active ADULT ASPIRIN LOW STRENGTH 81 MG ORAL TABLET DISINTEGR ATING 1 by mouth every daily ASPIRIN 54765854299 Active Mitch Urbina DO Ac tive METOPROLOL TARTRATE 50 MG ORAL TABLET 1 by mouth twice daily METOPROLOL TARTRATE 43238829394 Active Maria Rivas RN Ac tive BACTRIM DS 800-160 MG ORAL TABLET 1 tab by mouth twice daily 201 10/19/09 BACTRIM DS 800-160 MG ORAL TABLET 726359 TRIMETHOPRIM-SULFAMETHOXAZOLE Inactive PROVIGIL 100 MG ORAL TABLET Take one by mouth daily 20 08/20/04 PROVIGIL 100 MG ORAL TABLET 645294 MODAFINIL Inactive FUROSEMIDE 40 MG ORAL TABLET 1 by mouth daily FUROSEMIDE 40 MG ORAL TABLET 796338 FUROSEMIDE Inactive KLOR-CON 20 MEQ ORAL PACKET Take one by mouth daily 20 09/10/08 KLOR- CON 20 MEQ ORAL PACKET 1812808 POTASSIUM CHLORIDE Inactive LISINOPRIL 5 MG ORAL TABLET 1 by mouth every day 11/17 LISINOPRIL 5 MG ORAL TABLET 133688 LISINOPRIL Inactive COLCRYS 0.6 MG ORAL TABLET 1 po q 6 hours prn gout pain COLCRYS 0.6 MG ORAL TABLET 757614 COLCHICINE Inactive JANUVIA 100 MG ORAL TABLET 1/2 by mouth every day 2011 JANUVIA 100 MG ORAL TABLET SITAGLIPTIN PHOSPHATE Inactive SIMVASTATIN 20 MG ORAL TABLET 1 tab daily at bedtime 2 SIMVASTATIN 20 MG ORAL TABLET 002624 SIMVASTATIN Inactive COUMADIN 6 MG ORAL TABLET 1 by mouth every other day 2 COUMADIN 6 MG ORAL TABLET 803315 WARFARIN SODIUM Inactive COUMADIN 5 MG ORAL TABLET 1 by mouth every other day 2 COUMADIN 5 MG ORAL TABLET 475055 WARFARIN SODIUM Inactive LISINOPRIL 20 MG ORAL TABLET 1 tab po at HS LISINOPRIL 20 MG ORAL TABLET 029912 LISINOPRIL Inactive LISINOPRIL-HYDROCHLOROTHIAZIDE 20-12.5 MG ORAL TABLET 1 tab by m outh daily LISINOPRIL-HYDROCHLOROTHIAZIDE 20-12.5 MG ORAL TABLET 550378 LISINOPRIL-HYDROCHLOROTHIAZIDE Inactive POLYTRIM 31482-8.1 UNIT/ML-% OPHTHALMIC SOLUTION 1 rui p in affected eye every 3 hours while awake x 7 days POLYTRIM 1000 0-0.1 UNIT/ML-% OPHTHALMIC SOLUTION 309313 POLYMYXIN B-TRIMETHOPRIM Inactive COUMADIN 4 MG ORAL TABLET 1 tablet daily COUMADIN 4 MG ORAL TABLET 964232 WARFARIN SODIUM Inactive CLONIDINE HCL 0.1 MG ORAL TABLET 1 po bid 7 days, then 1/2 t ab po bid 7 days CLONIDINE HCL 0.1 MG ORAL TABLET 134508 CLONIDIN E HCL Inactive ALLOPURINOL 300 MG ORAL TABLET Take 1 tablet by mouth daily 2012 ALLOPURINOL 300 MG ORAL TABLET 521019 ALLOPURINOL I nactive MECLIZINE HCL 25 MG ORAL TABLET 1 po tid 3 days, then 1/2 ta b tid 3 days MECLIZINE HCL 25 MG ORAL TABLET 600455 MECLIZINE HCL Inactive AMLODIPINE BESYLATE 5 MG ORAL TABLET 1 tablet by mouth daily 201 01/20/04 AMLODIPINE BESYLATE 5 MG ORAL TABLET 099204 AMLODIPINE BESYLATE Inactive KEFLEX 500 MG ORAL CAPSULE 1 po qid K EFLEX 500 MG ORAL CAPSULE 762723 CEPHALEXIN Inactive COLCRYS 0.6 MG ORAL TABLET 1 tab qid prn gout COLCRYS 0.6 MG ORAL TABLET 607766 COLCHICINE Inactive FAMOTIDINE 20 MG ORAL TABLET by mouth twice a day 2017 FAMOTIDINE 20 MG ORAL TABLET 879861 FAMOTIDINE Inactive GLIMEPIRIDE 2 MG ORAL TABLET 1 po BID GLIMEPIRIDE 2 MG ORAL TABLET 884269 GLIMEPIRIDE Inactive LOVENOX 100 MG/ML SUBCUTANEOUS SOLUTION One injection twice a da y LOVENOX 100 MG/ML SUBCUTANEOUS SOLUTION 676094 ENOXAPAR IN SODIUM Inactive Advance Directives Directive [...] 11 .6-14.8 platelet count 256 10^3/MM^3 10*3/mm3 457-065 1740/06/29 leukocyte count, blood 6.4 10^3/MM^3 10*3/mm3 4.6-10.2 [...] mg/dL Encounters Code Encounter Date Provider Facility CPT-58212 95683-Zip Vst-Est Level IV 10:06:35 CDT Stephy Urbina [facility] CPT-48104 27545-Okt Vst-Est Level IV 10:52:00 EDITOR NEWS Stephy Urbina [facility] CPT-65560 Level 3 Est. Patient 18:25:53 CDT Mitch Castellano janelle [facility] CPT-67996 Level 3 Est. Patient 19:43:34 CDT Mitch luis [facility] CPT-59732 Level 4 Est. Patient 09:30:18 CDT Mitch luis [facility] CPT-04373 Level 3 Est. Patient 15:10:14 CDT Joe Jason kamara [facility] [place] CPT-39784 Level 3 Est. Patient 15:03:46 CDT Joe Jason kamara [facility] [place] CPT-79582 Level 3 Est. Patient 14:21:06 CDT Mitch luis [facility] CPT-83492 Level 3 Est. Patient 14:52:06 CDT Joe Jason kamara [facility] [place] CPT-68746 Level 3 Est. Patient 09:34:30 EDITOR NEWS Mitch luis [facility] CPT-44193 Level 3 Est. Patient 09:37:15 CDT Mitch luis [facility] CPT-27422 Level 3 Est. Patient 17:01:00 EDITOR NEWS Mitch luis [facility] CPT-64840 Level 3 Est. Patient 13:53:19 EDITOR NEWS Mitch luis [facility] CPT-07699 Level 3 Est. Patient 19:19:37 EDITOR NEWS Mitch luis [facility] CPT-35099 Level 3 Est. Patient 13:25:53 EDITOR NEWS Tavo toure MD [facility] CPT-51976 Level 3 Est. Patient 18:17:28 CDT Mitch luis [facility] CPT-66425 Level 3 Est. Patient 15:22:57 CDT Mitch luis [facility] CPT-01883 Level 3 Est. Patient 18:21:50 CDT Mitch luis [facility] CPT-31013 Level 3 Est. Patient 18:20:38 CDT Mitch luis [facility] CPT-81225 Level 3 Est. Patient 15:37:55 CDT Mitch luis [facility] CPT-35462 Level 2 Est. Patient 15:54:44 CDT Carmine benton MD [facility] CPT-21750 Level 3 Est. Patient 21:46:01 EDITOR NEWS Mitch luis [facility] CPT-45796 Level 3 Est. Patient 22:15:50 CDT Mitch luis [facility] CPT-38048 Level 3 Est. Patient 10:48:15 CDT Mitch luis [facility] CPT-48976 Level 3 Est. Patient 23:20:57 CDT Tavo toure MD [facility] CPT-28436 Level 3 Est. Patient 16:26:13 CDT Mitch Arnol luis [facility] Procedures Code Procedure Name Date Entry Date Standard Desc ription CPT-JTINJ Asp/Joint Injection 18:47:02 CDT CPT-07182 Venipuncture Draw Fee 09:26:17 CDT CPT-79915 PT/INR - LAB USE ONLY 13:32:49 EDITOR NEWS CPT-99442 Venipuncture Draw Fee 13:32:49 EDITOR NEWS CPT-40960 PT/INR - LAB USE ONLY 10:34:49 EDITOR NEWS CPT-65507 Venipuncture Draw Fee 10:34:48 EDITOR NEWS CPT-08342 PT/INR - LAB USE ONLY 09:22:03 EDITOR NEWS CPT-09321 Venipuncture Draw Fee 09:22:02 EDITOR NEWS CPT-98769 Hemoccult IFOBT - LAB USE ONLY 10:27:22 CDT CPT-67620 Venipuncture Draw Fee 08:27:08 CDT CPT-61528 Liver Profile - LAB USE ONLY 08:27:07 CDT 2 CPT-48399 Microalbumin - LAB USE ONLY 08:27:07 CDT 20 25/05/09 CPT-47489 PT/INR - LAB USE ONLY 08:27:07 CDT CPT-04350 HGBA1C - LAB USE ONLY 08:27:07 CDT CPT-06280 CBC - LAB USE ONLY 08:27:07 CDT CPT-36894 Venipuncture Draw Fee 11:09:14 CDT CPT-87231 Venipuncture Draw Fee 08:32:21 EDITOR NEWS CPT-30431 Venipuncture Draw Fee 09:38:56 EDITOR NEWS CPT-64632 No Charge Offi Visit 21:36:07 CDT 1 CPT-26854 Venipuncture Draw Fee 10:13:28 EDITOR NEWS CPT-79396 Venipuncture Draw Fee 08:31:11 CDT CPT-92864 Aspir/Inject Med Joint 18:17:28 CDT CPT-83632 Venipuncture Draw Fee 10:13:30 CDT CPT-68005 Venipuncture Draw Fee 08:31:43 EDITOR NEWS CPT-JTINJ Joint Injection 18:34:50 CDT CPT-07555 Knee 3V 12:25:09 CDT CPT-87220 Venipuncture Draw Fee 12:15:57 CDT CPT-060 Medical Surveillance Exam 21:31:43 CDT 2011 CPT-30323 Venipuncture Draw Fee 08:32:05 EDITOR NEWS CPT-OV Office Visit 18:19:06 CDT
--- OUTSIDE RECORDS SUMMARY | 2020-01-18 11:58 | XMS REPORT | Clinical Summary ---
Author Author Admin, Mitch Leon Organization [facility] Address Unknown Phone Unavailable Allergies, Adverse Reactions, [...] Coronary atherosclerosis of unspecified type of vessel, iliamna or graft EDEMA 782.3 Resolved Mitch Urbina [...] daily for high b lood pressure MINOXIDIL 52145447069 Active Mitch Urbina DO Ac tive METFORMIN HCL ER 500 MG ORAL TABLET EXTENDED RELEASE 2 4 HOUR 2 tablets by mouth twice daily METFORMIN HCL 81906738412 Active Mitch Urbina DO Active GLIMEPIRIDE 4 MG ORAL TABLET 1 tablet by mouth twice daily f or diabetes GLIMEPIRIDE 69085347716 Active Mitch Urbina DO Active GLIMEPIRIDE 2 MG ORAL TABLET 1 po BID GLIMEPI RIDE 23147265362 No Longer Active Mitch Urbina DO Active AMLODIPINE BESYLATE 5 MG ORAL TABLET 1 tablet by mouth daily AMLODIPINE BESYLATE 29405764133 Active Mitch Urbina DO Active PROVIGIL 200 MG ORAL TABLET 1/2 tab po q day MODA FINIL 56074763250 Active Renee Oconnor LPN Active FAMOTIDINE 20 MG ORAL TABLET by mouth twice a day 2017 FAMOTIDINE 99766437198 No Longer Active Mitch Urbina DO Active COLCRYS 0.6 MG ORAL TABLET 1 tab qid prn gout C OLCHICINE 67179873535 No Longer Active Mitch Urbina DO Active KEFLEX 500 MG ORAL CAPSULE 1 po qid CEPHALEXI N 22837477135 No Longer Active Mitch Urbina DO Active LOSARTAN POTASSIUM 100 MG ORAL TABLET 1 pill by mouth daily, for blood pressure LOSARTAN POTASSIUM 65003198372 Active Ana Ocampo Active AMLODIPINE BESYLATE 5 MG ORAL TABLET 1 tablet by mouth daily 201 01/20/04 AMLODIPINE BESYLATE 25590593734 No Longer Active Jillina Fra donaldo INTENSIVE CARE UNIT NURSE Active MITIGARE 0.6 MG ORAL CAPSULE 2 capsules at onset of go ut pain, then take one capsule at 1 hour if symptoms persist. COLCHICINE 59 036854923 Active Mitch Urbina DO Active COUMADIN 1 MG ORAL TABLET 2 tabs orally daily with the 5mg tab to equal 7mg daily WARFARIN SODIUM 42502088236 Active Renee Oconnor LPN Active INVOKANA 100 MG ORAL TABLET 1 tablet orally daily CANAGLIFLOZIN 18176310129 Active Renee Oconnoreder BURNETTN Active MECLIZINE HCL 25 MG ORAL TABLET 1 po tid 3 days, then 1/2 ta b tid 3 days MECLIZINE HCL 01274374851 No Longer Active Corey SEGURA Active ALLOPURINOL 300 MG ORAL TABLET Take 1 tablet by mouth daily 2012 ALLOPURINOL 38966968770 No Longer Active Corey SEGURA Active CLONIDINE HCL 0.1 MG ORAL TABLET 1 po bid 7 days, then 1/2 t ab po bid 7 days CLONIDINE HCL 17818669238 No Longer Active Croey SEGURA Active COUMADIN 5 MG ORAL TABLET 1 tab PO daily WARFAR IN SODIUM 37862088453 Active Renee Oconnor LPN Active COUMADIN 4 MG ORAL TABLET 1 tablet daily WARFAR IN SODIUM 78985108045 No Longer Active Corey SEGURA Active POLYTRIM 39475-8.1 UNIT/ML-% OPHTHALMIC SOLUTION 1 rui p in affected eye every 3 hours while awake x 7 days POLYMYXIN B-TRIMETHOP RIM 39746031340 No Longer Active Corey SEGURA Active LOSARTAN POTASSIUM-HCTZ 100-12.5 MG ORAL TABLET 1 by m outh daily for high blood pressure LOSARTAN POTASSIUM-HCTZ 21894482596 No Longer A ctive Mitch Urbina DO Active LISINOPRIL-HYDROCHLOROTHIAZIDE 20-12.5 MG ORAL TABLET 1 tab by m outh daily LISINOPRIL-HYDROCHLOROTHIAZIDE 46992369245 No Longer Active Mitch Urbina DO Active LISINOPRIL 20 MG ORAL TABLET 1 tab po at HS LIS INOPRIL 95415900667 No Longer Active Mitch Urbina DO Active COUMADIN 5 MG ORAL TABLET 1 by mouth every other day 2 WARFARIN SODIUM 15457263059 No Longer Active Mitch Urbina DO Active COUMADIN 6 MG ORAL TABLET 1 by mouth every other day 2 WARFARIN SODIUM 52137802586 No Longer Active Mitch Urbina DO Active SIMVASTATIN 40 MG ORAL TABLET 1 tab daily at bedtime SIMVASTATIN 85322317041 Active Mitch Urbina DO Active SIMVASTATIN 20 MG ORAL TABLET 1 tab daily at bedtime 2 SIMVASTATIN 58633824327 No Longer Active Mitch Urbina DO Active LOVENOX 100 MG/ML SUBCUTANEOUS SOLUTION One injection twice a da y ENOXAPARIN SODIUM 03049947173 No Longer Active Carmine Yusuf MD Active JANUVIA 50 MG ORAL TABLET Take one by mouth daily SITAGLIPTIN PHOSPHATE 84654024119 Active Renee Elvin DE LA ROSA Active JANUVIA 100 MG ORAL TABLET 1/2 by mouth every day 2011 SITAGLIPTIN PHOSPHATE 21561109762 No Longer Active Bijal Segal RN Acti ve METFORMIN HCL 500 MG ORAL TABLET 2 by mouth twice daily METFORMIN HCL 32940866833 No Longer Active Renee Oconnor LPN Active COLCRYS 0.6 MG ORAL TABLET 1 po q 6 hours prn gout pain COLCHICINE 74624547498 No Longer Active Camila Reese Active LISINOPRIL 5 MG ORAL TABLET 1 by mouth every day 11/17 LISINOPRIL 77019126994 No Longer Active Nguyen Perez Active KLOR-CON 20 MEQ ORAL PACKET Take one by mouth daily 09/10/08 POTASSIUM CHLORIDE 91035460096 No Longer Active Nguyen Perez Active FUROSEMIDE 40 MG ORAL TABLET 1 by mouth daily F UROSEMIDE 74726446943 No Longer Active Nguyen Perez Active PROVIGIL 100 MG ORAL TABLET Take one by mouth daily 08/20/04 MODAFINIL 29286940864 No Longer Active Mitch Urbina DO Active BACTRIM DS 800-160 MG ORAL TABLET 1 tab by mouth twice daily 201 10/19/09 TRIMETHOPRIM-SULFAMETHOXAZOLE 91247852653 No Longer Active Elian Hays MD Active ADULT ASPIRIN LOW STRENGTH 81 MG ORAL TABLET DISINTEGR ATING 1 by mouth every daily ASPIRIN 08828728295 Active Mitch Urbina DO Ac tive METOPROLOL TARTRATE 50 MG ORAL TABLET 1 by mouth twice daily METOPROLOL TARTRATE 89492574108 Active Maria Rivas RN Ac tive BACTRIM DS 800-160 MG ORAL TABLET 1 tab by mouth twice daily 201 10/19/09 BACTRIM DS 800-160 MG ORAL TABLET 135248 TRIMETHOPRIM-SULFAMETHOXAZOLE Inactive PROVIGIL 100 MG ORAL TABLET Take one by mouth daily 20 08/20/04 PROVIGIL 100 MG ORAL TABLET 046710 MODAFINIL Inactive FUROSEMIDE 40 MG ORAL TABLET 1 by mouth daily FUROSEMIDE 40 MG ORAL TABLET 748305 FUROSEMIDE Inactive KLOR-CON 20 MEQ ORAL PACKET Take one by mouth daily 20 09/10/08 KLOR- CON 20 MEQ ORAL PACKET 5809082 POTASSIUM CHLORIDE Inactive LISINOPRIL 5 MG ORAL TABLET 1 by mouth every day 11/17 LISINOPRIL 5 MG ORAL TABLET 448561 LISINOPRIL Inactive COLCRYS 0.6 MG ORAL TABLET 1 po q 6 hours prn gout pain COLCRYS 0.6 MG ORAL TABLET 913379 COLCHICINE Inactive JANUVIA 100 MG ORAL TABLET 1/2 by mouth every day 2011 JANUVIA 100 MG ORAL TABLET SITAGLIPTIN PHOSPHATE Inactive SIMVASTATIN 20 MG ORAL TABLET 1 tab daily at bedtime 2 SIMVASTATIN 20 MG ORAL TABLET 042816 SIMVASTATIN Inactive COUMADIN 6 MG ORAL TABLET 1 by mouth every other day 2 COUMADIN 6 MG ORAL TABLET 968598 WARFARIN SODIUM Inactive COUMADIN 5 MG ORAL TABLET 1 by mouth every other day 2 COUMADIN 5 MG ORAL TABLET 583963 WARFARIN SODIUM Inactive LISINOPRIL 20 MG ORAL TABLET 1 tab po at HS LISINOPRIL 20 MG ORAL TABLET 137960 LISINOPRIL Inactive LISINOPRIL-HYDROCHLOROTHIAZIDE 20-12.5 MG ORAL TABLET 1 tab by m outh daily LISINOPRIL-HYDROCHLOROTHIAZIDE 20-12.5 MG ORAL TABLET 419082 LISINOPRIL-HYDROCHLOROTHIAZIDE Inactive POLYTRIM 94500-4.1 UNIT/ML-% OPHTHALMIC SOLUTION 1 rui p in affected eye every 3 hours while awake x 7 days POLYTRIM 1000 0-0.1 UNIT/ML-% OPHTHALMIC SOLUTION 269997 POLYMYXIN B-TRIMETHOPRIM Inactive COUMADIN 4 MG ORAL TABLET 1 tablet daily COUMADIN 4 MG ORAL TABLET 162514 WARFARIN SODIUM Inactive CLONIDINE HCL 0.1 MG ORAL TABLET 1 po bid 7 days, then 1/2 t ab po bid 7 days CLONIDINE HCL 0.1 MG ORAL TABLET 428325 CLONIDIN E HCL Inactive ALLOPURINOL 300 MG ORAL TABLET Take 1 tablet by mouth daily 2012 ALLOPURINOL 300 MG ORAL TABLET 762601 ALLOPURINOL I nactive MECLIZINE HCL 25 MG ORAL TABLET 1 po tid 3 days, then 1/2 ta b tid 3 days MECLIZINE HCL 25 MG ORAL TABLET 534933 MECLIZINE HCL Inactive AMLODIPINE BESYLATE 5 MG ORAL TABLET 1 tablet by mouth daily 201 01/20/04 AMLODIPINE BESYLATE 5 MG ORAL TABLET 826248 AMLODIPINE BESYLATE Inactive KEFLEX 500 MG ORAL CAPSULE 1 po qid K EFLEX 500 MG ORAL CAPSULE 562639 CEPHALEXIN Inactive COLCRYS 0.6 MG ORAL TABLET 1 tab qid prn gout COLCRYS 0.6 MG ORAL TABLET 572341 COLCHICINE Inactive FAMOTIDINE 20 MG ORAL TABLET by mouth twice a day 2017 FAMOTIDINE 20 MG ORAL TABLET 546425 FAMOTIDINE Inactive GLIMEPIRIDE 2 MG ORAL TABLET 1 po BID GLIMEPIRIDE 2 MG ORAL TABLET 873545 GLIMEPIRIDE Inactive LOVENOX 100 MG/ML SUBCUTANEOUS SOLUTION One injection twice a da y LOVENOX 100 MG/ML SUBCUTANEOUS SOLUTION 405741 ENOXAPAR IN SODIUM Inactive Advance Directives Directive [...] 11 .6-14.8 platelet count 256 10^3/MM^3 10*3/mm3 905-522 2959/06/29 leukocyte count, blood 6.4 10^3/MM^3 10*3/mm3 4.6-10.2 [...] mg/dL Encounters Code Encounter Date Provider Facility CPT-37051 [id number] Vst-Est Level IV 10:06:35 CDT Stephy Urbina [facility] CPT-84244 [id number] Vst-Est Level IV 10:52:00 [employer] Stephy Urbina [facility] CPT-75217 Level 3 Est. Patient 18:25:53 CDT Mitch Castellano janelle [facility] CPT-20020 Level 3 Est. Patient 19:43:34 CDT Mitch luis [facility] CPT-40513 Level 4 Est. Patient 09:30:18 CDT Mitch luis [facility] CPT-31723 Level 3 Est. Patient 15:10:14 CDT Joe Jason kamara [facility] CPT-79432 Level 3 Est. Patient 15:03:46 CDT Joe Jason kamara [facility] CPT-89041 Level 3 Est. Patient 14:21:06 CDT Mitch luis [facility] CPT-76875 Level 3 Est. Patient 14:52:06 CDT Joe Jason kamara [facility] CPT-98772 Level 3 Est. Patient 09:34:30 [employer] Mitch luis [facility] CPT-54128 Level 3 Est. Patient 09:37:15 CDT Mitch luis [facility] CPT-34783 Level 3 Est. Patient 17:01:00 [employer] Mitch luis [facility] CPT-74385 Level 3 Est. Patient 13:53:19 [employer] Mitch luis [facility] CPT-27477 Level 3 Est. Patient 19:19:37 [employer] Mitch luis [facility] CPT-56312 Level 3 Est. Patient 13:25:53 [employer] Tavo toure MD [facility] CPT-88994 Level 3 Est. Patient 18:17:28 CDT Mitch luis [facility] CPT-94823 Level 3 Est. Patient 15:22:57 CDT Mitch luis [facility] CPT-69880 Level 3 Est. Patient 18:21:50 CDT Mitch luis [facility] CPT-49175 Level 3 Est. Patient 18:20:38 CDT Mitch luis [facility] CPT-47282 Level 3 Est. Patient 15:37:55 CDT Mitch luis [facility] CPT-21399 Level 2 Est. Patient 15:54:44 CDT Carmine benton MD [facility] CPT-62851 Level 3 Est. Patient 21:46:01 [employer] Mitch luis [facility] CPT-51747 Level 3 Est. Patient 22:15:50 CDT Mitch luis [facility] CPT-31114 Level 3 Est. Patient 10:48:15 CDT Mitch luis [facility] CPT-16901 Level 3 Est. Patient 23:20:57 CDT Tavo toure MD [facility] CPT-39678 Level 3 Est. Patient 16:26:13 CDT Mitch Arnol luis [facility] Procedures Code Procedure Name Date Entry Date Standard Desc ription CPT-JTINJ Asp/Joint Injection 18:47:02 CDT CPT-96608 Venipuncture Draw Fee 09:26:17 CDT CPT-30975 PT/INR - LAB USE ONLY 13:32:49 [employer] CPT-95646 Venipuncture Draw Fee 13:32:49 [employer] CPT-03341 PT/INR - LAB USE ONLY 10:34:49 [employer] CPT-89307 Venipuncture Draw Fee 10:34:48 [employer] CPT-47542 PT/INR - LAB USE ONLY 09:22:03 [employer] CPT-75372 Venipuncture Draw Fee 09:22:02 [employer] CPT-47424 Hemoccult IFOBT - LAB USE ONLY 10:27:22 CDT CPT-62841 Venipuncture Draw Fee 08:27:08 CDT CPT-48853 Liver Profile - LAB USE ONLY 08:27:07 CDT 2 CPT-03077 Microalbumin - LAB USE ONLY 08:27:07 CDT 20 25/05/09 CPT-26575 PT/INR - LAB USE ONLY 08:27:07 CDT CPT-59901 HGBA1C - LAB USE ONLY 08:27:07 CDT CPT-12953 CBC - LAB USE ONLY 08:27:07 CDT CPT-16199 Venipuncture Draw Fee 11:09:14 CDT CPT-83622 Venipuncture Draw Fee 08:32:21 [employer] CPT-89688 Venipuncture Draw Fee 09:38:56 [employer] CPT-84102 No Charge Offi Visit 21:36:07 CDT 1 CPT-33021 Venipuncture Draw Fee 10:13:28 [employer] CPT-49836 Venipuncture Draw Fee 08:31:11 CDT CPT-56599 Aspir/Inject Med Joint 18:17:28 CDT CPT-03500 Venipuncture Draw Fee 10:13:30 CDT CPT-71979 Venipuncture Draw Fee 08:31:43 [employer] CPT-JTINJ Joint Injection 18:34:50 CDT CPT-03919 Knee 3V 12:25:09 CDT CPT-91750 Venipuncture Draw Fee 12:15:57 CDT CPT-060 Medical Surveillance Exam 21:31:43 CDT 2011 CPT-98210 Venipuncture Draw Fee 08:32:05 [employer] CPT-OV Office Visit 18:19:06 CDT
--- OUTSIDE RECORDS SUMMARY | 2020-01-18 11:58 | XMS REPORT | Clinical Summary ---
Author Author Admin, Mitch Leon Organization [facility] Address Unknown Phone Unavailable Allergies, Adverse Reactions, [...] disease, knee, left 715.96 Active Mitch Arnol Ubrina DO Osteoarthrosis, unspecified whether generalized or localized, [...] by mouth twice a day 2017 FAMOTIDINE 30289051268 No Longer Active Mitch Urbina DO Active COLCRYS 0.6 MG ORAL TABLET 1 tab qid prn gout C OLCHICINE 81122514745 No Longer Active Mitch Urbina DO Active GLIMEPIRIDE 2 MG ORAL TABLET 1 po BID GLIMEPIRID E 97489498449 Active Renee Oconnor PROCESS CHECKER Active KEFLEX 500 MG ORAL CAPSULE 1 po qid CEPHALEXI N 01864610354 No Longer Active Mitch Urbina DO Active LOSARTAN POTASSIUM 100 MG ORAL TABLET 1 pill by mouth daily, for blood pressure LOSARTAN POTASSIUM 70523365797 Active Ana Wallace Active AMLODIPINE BESYLATE 5 MG ORAL TABLET 1 tablet by mouth daily 201 01/20/04 AMLODIPINE BESYLATE 24842789378 No Longer Active Joe fulton APRN Active MITIGARE 0.6 MG ORAL CAPSULE 2 capsules at onset of go ut pain, then take one capsule at 1 hour if symptoms persist. COLCHICINE 59 885249049 Active Mitch Urbina DO Active COUMADIN 1 MG ORAL TABLET 2 tabs orally daily with the 5mg tab to equal 7mg daily WARFARIN SODIUM 87421526942 Active Ana Wallace Active INVOKANA 100 MG ORAL TABLET 1 tablet orally daily CANAGLIFLOZIN 82401220061 Active Mitch Urbina DO Active MINOXIDIL 2.5 MG ORAL TABLET 1 tablet daily for high blood press ure MINOXIDIL 97061048417 Active Mitch Urbina DO Active MECLIZINE HCL 25 MG ORAL TABLET 1 po tid 3 days, then 1/2 ta b tid 3 days MECLIZINE HCL 15302301490 No Longer Active Corey SEGURA Active ALLOPURINOL 300 MG ORAL TABLET Take 1 tablet by mouth daily 2012 ALLOPURINOL 76229390525 No Longer Active Corey SEGURA Active CLONIDINE HCL 0.1 MG ORAL TABLET 1 po bid 7 days, then 1/2 t ab po bid 7 days CLONIDINE HCL 90878791476 No Longer Active Corey SEGURA Active COUMADIN 5 MG ORAL TABLET 1 tab PO daily WARFAR IN SODIUM 17728472763 Active Mitch Urbina DO Active COUMADIN 4 MG ORAL TABLET 1 tablet daily WARFAR IN SODIUM 91626817887 No Longer Active Corey SEGURA Active POLYTRIM 87340-9.1 UNIT/ML-% OPHTHALMIC SOLUTION 1 rui p in affected eye every 3 hours while awake x 7 days POLYMYXIN B-TRIMETHOP RIM 77612022109 No Longer Active Corey SEGURA Active LOSARTAN POTASSIUM-HCTZ 100-12.5 MG ORAL TABLET 1 by m outh daily for high blood pressure LOSARTAN POTASSIUM-HCTZ 40092292004 No Longer A ctive Mitch Urbina DO Active LISINOPRIL-HYDROCHLOROTHIAZIDE 20-12.5 MG ORAL TABLET 1 tab by m outh daily LISINOPRIL-HYDROCHLOROTHIAZIDE 38042161851 No Longer Active Mitch Urbina DO Active LISINOPRIL 20 MG ORAL TABLET 1 tab po at HS LIS INOPRIL 95619368298 No Longer Active Mitch Urbina DO Active COUMADIN 5 MG ORAL TABLET 1 by mouth every other day 2 WARFARIN SODIUM 75193882210 No Longer Active Mitch Urbina DO Active COUMADIN 6 MG ORAL TABLET 1 by mouth every other day 2 WARFARIN SODIUM 16886474298 No Longer Active Mitch Urbina DO Active SIMVASTATIN 40 MG ORAL TABLET 1 tab daily at bedtime SIMVASTATIN 52353668552 Active Mitch Urbina DO Active SIMVASTATIN 20 MG ORAL TABLET 1 tab daily at bedtime 2 SIMVASTATIN 22868530333 No Longer Active Mitch Urbina DO Active LOVENOX 100 MG/ML SUBCUTANEOUS SOLUTION One injection twice a da y ENOXAPARIN SODIUM 62389905465 No Longer Active Carmine Yusuf MD Active JANUVIA 50 MG ORAL TABLET Take one by mouth daily SITAGLIPTIN PHOSPHATE 60103824163 Active Mitch W Carlitos DO Active JANUVIA 100 MG ORAL TABLET 1/2 by mouth every day 2011 SITAGLIPTIN PHOSPHATE 16720091157 No Longer Active Bijal Segal RN Acti ve METFORMIN HCL 500 MG ORAL TABLET 2 by mouth twice daily METFORMIN HCL 68222368242 Active Mitch Arnol Urbina DO Active COLCRYS 0.6 MG ORAL TABLET 1 po q 6 hours prn gout pain COLCHICINE 75584515638 No Longer Active Camila Reese Active LISINOPRIL 5 MG ORAL TABLET 1 by mouth every day 11/17 LISINOPRIL 08673198469 No Longer Active Nguyen Perez Active KLOR-CON 20 MEQ ORAL PACKET Take one by mouth daily 09/10/08 POTASSIUM CHLORIDE 59921056480 No Longer Active Nguyen Perez Active FUROSEMIDE 40 MG ORAL TABLET 1 by mouth daily F UROSEMIDE 68331161022 No Longer Active Nguyen Perez Active PROVIGIL 200 MG ORAL TABLET 1/2 tab po q day MODA FINIL 95079524533 Active Renee Elvin BURNETTN Active PROVIGIL 100 MG ORAL TABLET Take one by mouth daily 08/20/04 MODAFINIL 46420997656 No Longer Active Mitch Urbina DO Active BACTRIM DS 800-160 MG ORAL TABLET 1 tab by mouth twice daily 201 10/19/09 TRIMETHOPRIM-SULFAMETHOXAZOLE 58468661605 No Longer Active C alberto Hays MD Active ADULT ASPIRIN LOW STRENGTH 81 MG ORAL TABLET DISINTEGR ATING 1 by mouth every daily ASPIRIN 25840541903 Active Mitch Urbina DO Ac tive METOPROLOL TARTRATE 50 MG ORAL TABLET 1 by mouth twice daily METOPROLOL TARTRATE 78046891922 Active Mitch Urbina DO Active BACTRIM DS 800-160 MG ORAL TABLET 1 tab by mouth twice daily 201 10/19/09 BACTRIM DS 800-160 MG ORAL TABLET 122807 TRIMETHOPRIM-SULFAMETHOXAZOLE Inactive PROVIGIL 100 MG ORAL TABLET Take one by mouth daily 08/20/04 PROVIGIL 100 MG ORAL TABLET 779633 MODAFINIL Inactive FUROSEMIDE 40 MG ORAL TABLET 1 by mouth daily FUROSEMIDE 40 MG ORAL TABLET 774476 FUROSEMIDE Inactive KLOR-CON 20 MEQ ORAL PACKET Take one by mouth daily 09/10/08 KLOR- CON 20 MEQ ORAL PACKET 9909302 POTASSIUM CHLORIDE Inactive LISINOPRIL 5 MG ORAL TABLET 1 by mouth every day 11/17 LISINOPRIL 5 MG ORAL TABLET 679797 LISINOPRIL Inactive COLCRYS 0.6 MG ORAL TABLET 1 po q 6 hours prn gout pain COLCRYS 0.6 MG ORAL TABLET 203363 COLCHICINE Inactive JANUVIA 100 MG ORAL TABLET 1/2 by mouth every day 2011 JANUVIA 100 MG ORAL TABLET SITAGLIPTIN PHOSPHATE Inactive SIMVASTATIN 20 MG ORAL TABLET 1 tab daily at bedtime 2 SIMVASTATIN 20 MG ORAL TABLET 198938 SIMVASTATIN Inactive COUMADIN 6 MG ORAL TABLET 1 by mouth every other day COUMADIN 6 MG ORAL TABLET 226426 WARFARIN SODIUM Inactive COUMADIN 5 MG ORAL TABLET 1 by mouth every other day COUMADIN 5 MG ORAL TABLET 590833 WARFARIN SODIUM Inactive LISINOPRIL 20 MG ORAL TABLET 1 tab po at HS LISINOPRIL 20 MG ORAL TABLET 758429 LISINOPRIL Inactive LISINOPRIL-HYDROCHLOROTHIAZIDE 20-12.5 MG ORAL TABLET 1 tab by m outh daily LISINOPRIL-HYDROCHLOROTHIAZIDE 20-12.5 MG ORAL TABLET 096163 LISINOPRIL-HYDROCHLOROTHIAZIDE Inactive POLYTRIM 10621-7.1 UNIT/ML-% OPHTHALMIC SOLUTION 1 rui p in affected eye every 3 hours while awake x 7 days POLYTRIM 1000 0-0.1 UNIT/ML-% OPHTHALMIC SOLUTION 092090 POLYMYXIN B-TRIMETHOPRIM Inactive COUMADIN 4 MG ORAL TABLET 1 tablet daily COUMADIN 4 MG ORAL TABLET 703688 WARFARIN SODIUM Inactive CLONIDINE HCL 0.1 MG ORAL TABLET 1 po bid 7 days, then 1/2 t ab po bid 7 days CLONIDINE HCL 0.1 MG ORAL TABLET 390566 CLONIDIN E HCL Inactive ALLOPURINOL 300 MG ORAL TABLET Take 1 tablet by mouth daily 2012 ALLOPURINOL 300 MG ORAL TABLET 126996 ALLOPURINOL I nactive MECLIZINE HCL 25 MG ORAL TABLET 1 po tid 3 days, then 1/2 ta b tid 3 days MECLIZINE HCL 25 MG ORAL TABLET 022881 MECLIZINE HCL Inactive AMLODIPINE BESYLATE 5 MG ORAL TABLET 1 tablet by mouth daily 201 01/20/04 AMLODIPINE BESYLATE 5 MG ORAL TABLET 701642 AMLODIPINE BESYLATE Inactive KEFLEX 500 MG ORAL CAPSULE 1 po qid K EFLEX 500 MG ORAL CAPSULE 636190 CEPHALEXIN Inactive COLCRYS 0.6 MG ORAL TABLET 1 tab qid prn gout COLCRYS 0.6 MG ORAL TABLET 602441 COLCHICINE Inactive FAMOTIDINE 20 MG ORAL TABLET by mouth twice a day 2017 FAMOTIDINE 20 MG ORAL TABLET 003272 FAMOTIDINE Inactive LOVENOX 100 MG/ML SUBCUTANEOUS SOLUTION One injection twice a da y LOVENOX 100 MG/ML SUBCUTANEOUS SOLUTION 558021 ENOXAPAR IN SODIUM Inactive Vital Signs Date [...] - Chem istry sodium, serum 139 mmol/L 643-693 8257/07/17 potassium, serum 4.2 mmol/L 3.5-5.2 chloride, serum 102 mmol/L 98-107 carbon dioxide, venous blood 28.9 mmol/L 21.0-32 .0 blood glucose 211 mg/dL 65-110 calcium, serum 10.6 mg/dL 8.5-10.1 urea nitrogen, blood 29 mg/dL 7-18 creatinine, serum 1.24 mg/dL 0.60-1.30 sodium, serum 141 mmol/L 224-025 8762/08/07 potassium, serum 4.5 mmol/L 3.5-5.2 chloride, serum [...] ... - Chemistry sodium, serum 144 mmol/L 494-124 4751/06/12 carbon dioxide, venous blood 26.6 mmol/L 21.0-32 [...] HGBA1C - Chemistry cholesterol, serum 136 mg/dL 992-846 8312/12/06 triglyceride, serum, fasting 247 mg/dL 30-200 HDL cholesterol, serum 41 mg/dL 32-60 LDL cholesterol, serum 46 mg/dL 0-130 aspartate aminotransferase (SGOT), serum 22 U/L 15-37 alanine aminotransferase (SGPT), serum 30 U/L 12-78 bilirubin, serum, total 0.80 mg/dL 0.00-1.00 hemoglobin A1C, blood, as % of total hemoglobin 6.4 % 4.3-6.0 Encounters Code Encounter Date Provider Facility CPT-44113 Level 3 Est. Patient 18:25:[address] [facility] CPT-98671 Level 3 Est. Patient 19:43:[address] [facility] CPT-73602 Level 4 Est. Patient 09:30:[address] [facility] CPT-25884 Level 3 Est. Patient 15:10:14 CDT Joe kamara [facility] CPT-67879 Level 3 Est. Patient 15:03:46 CDT Joe kamara [facility] CPT-55915 Level 3 Est. Patient 14:21:[address] [facility] CPT-20703 Level 3 Est. Patient 14:52:06 [facility] Est[facility] Patient 09:34:30 ULTRASONIC SOLDERER Mitch luis [facility]-81066 Level 3 Est. Patient 09:37:15 CDT Mitch Ambrose L janelle [facility]-66869 Level 3 Est. Patient 17:01:00 ULTRASONIC SOLDERER Mitch Ambrose L janelle [facility] CPT-21780 Level 3 Est. Patient 13:53:19 ULTRASONIC SOLDERER Mitch W L janelle [facility] CPT-49502 Level 3 Est. Patient 19:19:37 ULTRASONIC SOLDERER Mitch W L janelle [facility] CPT-11370 Level 3 Est. Patient 13:25:53 ULTRASONIC SOLDERER Tavo toure MD [facility]-63969 Level 3 Est. Patient 18:17:28 CDT Mitch luis [facility] CPT-75437 Level 3 Est. Patient 15:22:57 CDT Mitch W L janelle [facility]-63683 Level 3 Est. Patient 18:21:50 CDT Mitch Arnol L janelle [facility] CPT-21126 Level 3 Est. Patient 18:20:38 CDT Mitch Arnol L janelle [facility]-08077 Level 3 Est. Patient 15:37:55 CDT Mitch W L janelle [facility] CPT-56460 Level 2 Est. Patient 15:54:44 CDT Carmine benton MD [facility]-75138 Level 3 Est. Patient 21:46:01 ULTRASONIC SOLDERER Mitch W L janelle [facility]-52208 Level 3 Est. Patient 22:15:50 CDT Mitch W L janelle [facility] CPT-46778 Level 3 Est. Patient 10:48:15 CDT Mitch luis [facility] CPT-39603 Level 3 Est. Patient 23:20:57 CDT Tavo toure MD [facility] CPT-58116 Level 3 Est. Patient 16:26:13 CDT Mitch luis [facility] Procedures Code Procedure Name Date Entry Date Standard Desc ription CPT-JTINJ Asp/Joint Injection 18:47:02 CDT CPT-15256 Venipuncture Draw Fee 09:26:17 CDT CPT-75282 PT/INR - LAB USE ONLY 13:32:49 ULTRASONIC SOLDERER CPT-47298 Venipuncture Draw Fee 13:32:49 ULTRASONIC SOLDERER CPT-57050 PT/INR - LAB USE ONLY 10:34:49 ULTRASONIC SOLDERER CPT-30728 Venipuncture Draw Fee 10:34:48 ULTRASONIC SOLDERER CPT-59468 PT/INR - LAB USE ONLY 09:22:03 ULTRASONIC SOLDERER CPT-10479 Venipuncture Draw Fee 09:22:02 ULTRASONIC SOLDERER CPT-38604 Hemoccult IFOBT - LAB USE ONLY 10:27:22 CDT CPT-95468 Venipuncture Draw Fee 08:27:08 CDT CPT-58812 Liver Profile - LAB USE ONLY 08:27:07 CDT 2 CPT-73520 Microalbumin - LAB USE ONLY 08:27:07 CDT 20 25/05/09 CPT-49399 PT/INR - LAB USE ONLY 08:27:07 CDT CPT-46547 HGBA1C - LAB USE ONLY 08:27:07 CDT CPT-10686 CBC - LAB USE ONLY 08:27:07 CDT CPT-25771 Venipuncture Draw Fee 11:09:14 CDT CPT-25981 Venipuncture Draw Fee 08:32:21 ULTRASONIC SOLDERER CPT-62775 Venipuncture Draw Fee 09:38:56 ULTRASONIC SOLDERER CPT-67326 No Charge Offi Visit 21:36:07 CDT 1 CPT-12840 Venipuncture Draw Fee 10:13:28 ULTRASONIC SOLDERER CPT-52023 Venipuncture Draw Fee 08:31:11 CDT CPT-38066 Aspir/Inject Med Joint 18:17:28 CDT CPT-68644 Venipuncture Draw Fee 10:13:30 CDT CPT-94883 Venipuncture Draw Fee 08:31:43 ULTRASONIC SOLDERER CPT-JTINJ Joint Injection 18:34:50 CDT CPT-78917 Knee 3V 12:25:09 CDT CPT-73006 Venipuncture Draw Fee 12:15:57 CDT CPT-060 Medical Surveillance Exam 21:31:43 CDT 2011 CPT-64280 Venipuncture Draw Fee 08:32:05 ULTRASONIC SOLDERER CPT-OV Office Visit 18:19:06 CDT
--- OUTSIDE RECORDS SUMMARY | 2020-01-18 11:58 | XMS REPORT | Clinical Summary ---
Author Author Admin, Mitch Leon Organization [facility] Address Unknown Phone Unavailable Allergies, Adverse Reactions, [...] Coronary atherosclerosis of unspecified type of vessel, [place] or graft EDEMA 782.3 Resolved Mitch Urbina [...] daily for high b lood pressure MINOXIDIL 21611244246 Active Mitch Urbina DO Ac tive METFORMIN HCL ER 500 MG ORAL TABLET EXTENDED RELEASE 2 4 HOUR 2 tablets by mouth twice daily METFORMIN HCL 74059140122 Active Mitch Urbina DO Active GLIMEPIRIDE 4 MG ORAL TABLET 1 tablet by mouth twice daily f or diabetes GLIMEPIRIDE 05628315292 Active Mitch Urbina DO Active GLIMEPIRIDE 2 MG ORAL TABLET 1 po BID GLIMEPI RIDE 88726501485 No Longer Active Mitch Urbina DO Active AMLODIPINE BESYLATE 5 MG ORAL TABLET 1 tablet by mouth daily AMLODIPINE BESYLATE 92625844204 Active Mitch Urbina DO Active PROVIGIL 200 MG ORAL TABLET 1/2 tab po q day MODA FINIL 06018577942 Active Renee Oconnor LPN Active FAMOTIDINE 20 MG ORAL TABLET by mouth twice a day 2017 FAMOTIDINE 45175601499 No Longer Active Mitch Urbina DO Active COLCRYS 0.6 MG ORAL TABLET 1 tab qid prn gout C OLCHICINE 54947428029 No Longer Active Mitch Urbina DO Active KEFLEX 500 MG ORAL CAPSULE 1 po qid CEPHALEXI N 27346924231 No Longer Active Mitch Urbina DO Active LOSARTAN POTASSIUM 100 MG ORAL TABLET 1 pill by mouth daily, for blood pressure LOSARTAN POTASSIUM 53818472133 Active Ana Ocampo Active AMLODIPINE BESYLATE 5 MG ORAL TABLET 1 tablet by mouth daily 201 01/20/04 AMLODIPINE BESYLATE 90718350033 No Longer Active Joe fulton APRN Active MITIGARE 0.6 MG ORAL CAPSULE 2 capsules at onset of go ut pain, then take one capsule at 1 hour if symptoms persist. COLCHICINE 59 958504648 Active Mitch Urbina DO Active COUMADIN 1 MG ORAL TABLET 2 tabs orally daily with the 5mg tab to equal 7mg daily WARFARIN SODIUM 77487141586 Active Renee Oconnor LPN Active INVOKANA 100 MG ORAL TABLET 1 tablet orally daily CANAGLIFLOZIN 53765941604 Active Renee Elvin DE LA ROSA Active MECLIZINE HCL 25 MG ORAL TABLET 1 po tid 3 days, then 1/2 ta b tid 3 days MECLIZINE HCL 13365391803 No Longer Active Corey SEGURA Active ALLOPURINOL 300 MG ORAL TABLET Take 1 tablet by mouth daily 2012 ALLOPURINOL 66207425981 No Longer Active Corey SEGURA Active CLONIDINE HCL 0.1 MG ORAL TABLET 1 po bid 7 days, then 1/2 t ab po bid 7 days CLONIDINE HCL 64057323370 No Longer Active Corey SEGURA Active COUMADIN 5 MG ORAL TABLET 1 tab PO daily WARFAR IN SODIUM 00351318909 Active Renee Oconnor LPN Active COUMADIN 4 MG ORAL TABLET 1 tablet daily WARFAR IN SODIUM 93372630950 No Longer Active Corey SEGURA Active POLYTRIM 75674-5.1 UNIT/ML-% OPHTHALMIC SOLUTION 1 rui p in affected eye every 3 hours while awake x 7 days POLYMYXIN B-TRIMETHOP RIM 39612548888 No Longer Active Corey SEGURA Active LOSARTAN POTASSIUM-HCTZ 100-12.5 MG ORAL TABLET 1 by m outh daily for high blood pressure LOSARTAN POTASSIUM-HCTZ 42270638080 No Longer A ctive Mitch Urbina DO Active LISINOPRIL-HYDROCHLOROTHIAZIDE 20-12.5 MG ORAL TABLET 1 tab by m outh daily LISINOPRIL-HYDROCHLOROTHIAZIDE 83727565218 No Longer Active Mitch Urbina DO Active LISINOPRIL 20 MG ORAL TABLET 1 tab po at HS LIS INOPRIL 32000239006 No Longer Active Mitch Urbina DO Active COUMADIN 5 MG ORAL TABLET 1 by mouth every other day 2 WARFARIN SODIUM 37125388700 No Longer Active Mitch Urbina DO Active COUMADIN 6 MG ORAL TABLET 1 by mouth every other day 2 WARFARIN SODIUM 62040617896 No Longer Active Mitch Urbina DO Active SIMVASTATIN 40 MG ORAL TABLET 1 tab daily at bedtime SIMVASTATIN 04095119863 Active Mitch Urbina DO Active SIMVASTATIN 20 MG ORAL TABLET 1 tab daily at bedtime 2 SIMVASTATIN 05186712988 No Longer Active Mitch Urbina DO Active LOVENOX 100 MG/ML SUBCUTANEOUS SOLUTION One injection twice a da y ENOXAPARIN SODIUM 87674661326 No Longer Active Carmine Yusuf MD Active JANUVIA 50 MG ORAL TABLET Take one by mouth daily SITAGLIPTIN PHOSPHATE 80634902210 Active Renee Oconnor LPN Active JANUVIA 100 MG ORAL TABLET 1/2 by mouth every day 2011 SITAGLIPTIN PHOSPHATE 08270014547 No Longer Active Bijal Segal RN Acti ve METFORMIN HCL 500 MG ORAL TABLET 2 by mouth twice daily METFORMIN HCL 51876613020 No Longer Active Renee Oconnor LPN Active COLCRYS 0.6 MG ORAL TABLET 1 po q 6 hours prn gout pain COLCHICINE 67071114498 No Longer Active Camila Reese Active LISINOPRIL 5 MG ORAL TABLET 1 by mouth every day 11/17 LISINOPRIL 12897411637 No Longer Active Nguyen Perez Active KLOR-CON 20 MEQ ORAL PACKET Take one by mouth daily 09/10/08 POTASSIUM CHLORIDE 24617797936 No Longer Active Nguyen Perez Active FUROSEMIDE 40 MG ORAL TABLET 1 by mouth daily F UROSEMIDE 97516713752 No Longer Active Nguyen Perez Active PROVIGIL 100 MG ORAL TABLET Take one by mouth daily 08/20/04 MODAFINIL 70729023969 No Longer Active Mitch Urbina DO Active BACTRIM DS 800-160 MG ORAL TABLET 1 tab by mouth twice daily 201 10/19/09 TRIMETHOPRIM-SULFAMETHOXAZOLE 11905063496 No Longer Active Elian Hays MD Active ADULT ASPIRIN LOW STRENGTH 81 MG ORAL TABLET DISINTEGR ATING 1 by mouth every daily ASPIRIN 44115930109 Active Mitch Urbina DO Ac tive METOPROLOL TARTRATE 50 MG ORAL TABLET 1 by mouth twice daily METOPROLOL TARTRATE 26974408941 Active Maria Rivas RN Ac tive BACTRIM DS 800-160 MG ORAL TABLET 1 tab by mouth twice daily 201 10/19/09 BACTRIM DS 800-160 MG ORAL TABLET 159210 TRIMETHOPRIM-SULFAMETHOXAZOLE Inactive PROVIGIL 100 MG ORAL TABLET Take one by mouth daily 08/20/04 PROVIGIL 100 MG ORAL TABLET 516772 MODAFINIL Inactive FUROSEMIDE 40 MG ORAL TABLET 1 by mouth daily FUROSEMIDE 40 MG ORAL TABLET 908095 FUROSEMIDE Inactive KLOR-CON 20 MEQ ORAL PACKET Take one by mouth daily 20 09/10/08 KLOR- CON 20 MEQ ORAL PACKET 0341306 POTASSIUM CHLORIDE Inactive LISINOPRIL 5 MG ORAL TABLET 1 by mouth every day 11/17 LISINOPRIL 5 MG ORAL TABLET 707108 LISINOPRIL Inactive COLCRYS 0.6 MG ORAL TABLET 1 po q 6 hours prn gout pain COLCRYS 0.6 MG ORAL TABLET 568038 COLCHICINE Inactive JANUVIA 100 MG ORAL TABLET 1/2 by mouth every day 2011 JANUVIA 100 MG ORAL TABLET SITAGLIPTIN PHOSPHATE Inactive SIMVASTATIN 20 MG ORAL TABLET 1 tab daily at bedtime 2 SIMVASTATIN 20 MG ORAL TABLET 652590 SIMVASTATIN Inactive COUMADIN 6 MG ORAL TABLET 1 by mouth every other day 2 COUMADIN 6 MG ORAL TABLET 689588 WARFARIN SODIUM Inactive COUMADIN 5 MG ORAL TABLET 1 by mouth every other day 2 COUMADIN 5 MG ORAL TABLET 499976 WARFARIN SODIUM Inactive LISINOPRIL 20 MG ORAL TABLET 1 tab po at HS LISINOPRIL 20 MG ORAL TABLET 750574 LISINOPRIL Inactive LISINOPRIL-HYDROCHLOROTHIAZIDE 20-12.5 MG ORAL TABLET 1 tab by m outh daily LISINOPRIL-HYDROCHLOROTHIAZIDE 20-12.5 MG ORAL TABLET 228454 LISINOPRIL-HYDROCHLOROTHIAZIDE Inactive POLYTRIM 05717-5.1 UNIT/ML-% OPHTHALMIC SOLUTION 1 rui p in affected eye every 3 hours while awake x 7 days POLYTRIM 1000 0-0.1 UNIT/ML-% OPHTHALMIC SOLUTION 044300 POLYMYXIN B-TRIMETHOPRIM Inactive COUMADIN 4 MG ORAL TABLET 1 tablet daily COUMADIN 4 MG ORAL TABLET 566406 WARFARIN SODIUM Inactive CLONIDINE HCL 0.1 MG ORAL TABLET 1 po bid 7 days, then 1/2 t ab po bid 7 days CLONIDINE HCL 0.1 MG ORAL TABLET 558904 CLONIDIN E HCL Inactive ALLOPURINOL 300 MG ORAL TABLET Take 1 tablet by mouth daily 2012 ALLOPURINOL 300 MG ORAL TABLET 827371 ALLOPURINOL I nactive MECLIZINE HCL 25 MG ORAL TABLET 1 po tid 3 days, then 1/2 ta b tid 3 days MECLIZINE HCL 25 MG ORAL TABLET 760941 MECLIZINE HCL Inactive AMLODIPINE BESYLATE 5 MG ORAL TABLET 1 tablet by mouth daily 201 01/20/04 AMLODIPINE BESYLATE 5 MG ORAL TABLET 763868 AMLODIPINE BESYLATE Inactive KEFLEX 500 MG ORAL CAPSULE 1 po qid K EFLEX 500 MG ORAL CAPSULE 802965 CEPHALEXIN Inactive COLCRYS 0.6 MG ORAL TABLET 1 tab qid prn gout COLCRYS 0.6 MG ORAL TABLET 979216 COLCHICINE Inactive FAMOTIDINE 20 MG ORAL TABLET by mouth twice a day 2017 FAMOTIDINE 20 MG ORAL TABLET 687497 FAMOTIDINE Inactive GLIMEPIRIDE 2 MG ORAL TABLET 1 po BID GLIMEPIRIDE 2 MG ORAL TABLET 229401 GLIMEPIRIDE Inactive LOVENOX 100 MG/ML SUBCUTANEOUS SOLUTION One injection twice a da y LOVENOX 100 MG/ML SUBCUTANEOUS SOLUTION 575885 ENOXAPAR IN SODIUM Inactive Advance Directives Directive [...] 11 .6-14.8 platelet count 256 10^3/MM^3 10*3/mm3 769-143 9061/06/29 leukocyte count, blood 6.4 10^3/MM^3 10*3/mm3 4.6-10.2 [...] mg/dL Encounters Code Encounter Date Provider Facility CPT-30614 87563-Art Vst-Est Level IV 10:06:35 CDT Stephy Urbina [facility] CPT-10033 [id number] Vst-Est Level IV 10:52:00 HEALTH INFORMATION PROVIDER Stephy Urbina [facility] CPT-91204 Level 3 Est. Patient 18:25:53 CDT Mitch Castellano janelle [facility] CPT-12686 Level 3 Est. Patient 19:43:34 CDT Mitch luis [facility] CPT-20688 Level 4 Est. Patient 09:30:18 CDT Mitch luis [facility] CPT-83070 Level 3 Est. Patient 15:10:14 CDT Joe Jason kamara [facility] CPT-79309 Level 3 Est. Patient 15:03:46 CDT Joe Jason kamara [facility] CPT-78282 Level 3 Est. Patient 14:21:06 CDT Mitch Castellano janelle [facility] CPT-63618 Level 3 Est. Patient 14:52:06 CDT Joe Jason kamara [facility] CPT-73641 Level 3 Est. Patient 09:34:30 HEALTH INFORMATION PROVIDER Mitch luis [facility] CPT-55671 Level 3 Est. Patient 09:37:15 CDT Mitch luis [facility] CPT-69412 Level 3 Est. Patient 17:01:00 HEALTH INFORMATION PROVIDER Mitch luis [facility] CPT-58262 Level 3 Est. Patient 13:53:19 HEALTH INFORMATION PROVIDER Mitch luis [facility] CPT-64403 Level 3 Est. Patient 19:19:37 HEALTH INFORMATION PROVIDER Mitch luis [facility] CPT-82724 Level 3 Est. Patient 13:25:53 HEALTH INFORMATION PROVIDER Tavo toure MD [facility] CPT-55721 Level 3 Est. Patient 18:17:28 CDT Mitch luis [facility] CPT-77250 Level 3 Est. Patient 15:22:57 CDT Mitch luis [facility] CPT-65286 Level 3 Est. Patient 18:21:50 CDT Mitch luis [facility] CPT-96679 Level 3 Est. Patient 18:20:38 CDT Mitch luis [facility] CPT-87560 Level 3 Est. Patient 15:37:55 CDT Mitch luis [facility] CPT-69191 Level 2 Est. Patient 15:54:44 CDT Carmine benton MD [facility] CPT-57824 Level 3 Est. Patient 21:46:01 HEALTH INFORMATION PROVIDER Mitch luis [facility] CPT-28002 Level 3 Est. Patient 22:15:50 CDT Mitch luis [facility] CPT-12820 Level 3 Est. Patient 10:48:15 CDT Mitch luis [facility] CPT-99794 Level 3 Est. Patient 23:20:57 CDT Tavo toure MD [facility] CPT-02215 Level 3 Est. Patient 16:26:13 CDT Mitch Arnol luis [facility] Procedures Code Procedure Name Date Entry Date Standard Desc ription CPT-JTINJ Asp/Joint Injection 18:47:02 CDT CPT-05490 Venipuncture Draw Fee 09:26:17 CDT CPT-78969 PT/INR - LAB USE ONLY 13:32:49 HEALTH INFORMATION PROVIDER CPT-30969 Venipuncture Draw Fee 13:32:49 HEALTH INFORMATION PROVIDER CPT-29352 PT/INR - LAB USE ONLY 10:34:49 HEALTH INFORMATION PROVIDER CPT-32079 Venipuncture Draw Fee 10:34:48 HEALTH INFORMATION PROVIDER CPT-78276 PT/INR - LAB USE ONLY 09:22:03 HEALTH INFORMATION PROVIDER CPT-40575 Venipuncture Draw Fee 09:22:02 HEALTH INFORMATION PROVIDER CPT-95936 Hemoccult IFOBT - LAB USE ONLY 10:27:22 CDT CPT-48045 Venipuncture Draw Fee 08:27:08 CDT CPT-88740 Liver Profile - LAB USE ONLY 08:27:07 CDT 2 CPT-61274 Microalbumin - LAB USE ONLY 08:27:07 CDT 20 25/05/09 CPT-20702 PT/INR - LAB USE ONLY 08:27:07 CDT CPT-45959 HGBA1C - LAB USE ONLY 08:27:07 CDT CPT-31641 CBC - LAB USE ONLY 08:27:07 CDT CPT-86078 Venipuncture Draw Fee 11:09:14 CDT CPT-80265 Venipuncture Draw Fee 08:32:21 HEALTH INFORMATION PROVIDER CPT-89040 Venipuncture Draw Fee 09:38:56 HEALTH INFORMATION PROVIDER CPT-77123 No Charge Offi Visit 21:36:07 CDT 1 CPT-76827 Venipuncture Draw Fee 10:13:28 HEALTH INFORMATION PROVIDER CPT-17452 Venipuncture Draw Fee 08:31:11 CDT CPT-86770 Aspir/Inject Med Joint 18:17:28 CDT CPT-93834 Venipuncture Draw Fee 10:13:30 CDT CPT-39720 Venipuncture Draw Fee 08:31:43 HEALTH INFORMATION PROVIDER CPT-JTINJ Joint Injection 18:34:50 CDT CPT-24624 Knee 3V 12:25:09 CDT CPT-36093 Venipuncture Draw Fee 12:15:57 CDT CPT-060 Medical Surveillance Exam 21:31:43 CDT 2011 CPT-80426 Venipuncture Draw Fee 08:32:05 HEALTH INFORMATION PROVIDER CPT-OV Office Visit 18:19:06 CDT
[2020-01-18] MEDS ORDERED: fentaNYL INJECTION 100 MCG/2 ML AMP ONE (11:59)
[2020-01-18] MEDS ORDERED: MIDAZOLAM 2 MG/2 ML (VERSED) VIAL ONE (11:59)
--- OUTSIDE RECORDS SUMMARY | 2020-01-18 11:59 | XMS REPORT | Clinical Summary ---
[...] daily for high b lood pressure MINOXIDIL 63279080450 Active Mitch Urbina DO Ac tive METFORMIN HCL ER 500 MG ORAL TABLET EXTENDED RELEASE 2 4 HOUR 2 tablets by mouth twice daily METFORMIN HCL 66646445349 Active Mitch Urbina Active GLIMEPIRIDE 4 MG ORAL TABLET 1 tablet by mouth twice daily f or diabetes GLIMEPIRIDE 43976043910 Active Mitch Arnol Urbina Active GLIMEPIRIDE 2 MG ORAL TABLET 1 po BID GLIMEPI RIDE 21313084160 No Longer Active Mitch Urbina DO Active AMLODIPINE BESYLATE 5 MG ORAL TABLET 1 tablet by mouth daily AMLODIPINE BESYLATE 15624215182 Active Mitch Urbina DO Active PROVIGIL 200 MG ORAL TABLET 1/2 tab po q day MODA FINIL 82146047896 Active Renee Oconnor LPN Active FAMOTIDINE 20 MG ORAL TABLET by mouth twice a day 2017 FAMOTIDINE 14862777436 No Longer Active Mitch Urbina DO Active COLCRYS 0.6 MG ORAL TABLET 1 tab qid prn gout C OLCHICINE 25125979672 No Longer Active Mitch Urbina DO Active KEFLEX 500 MG ORAL CAPSULE 1 po qid CEPHALEXI N 21677349446 No Longer Active Mitch Urbina DO Active LOSARTAN POTASSIUM 100 MG ORAL TABLET 1 pill by mouth daily, for blood pressure LOSARTAN POTASSIUM 03353413289 Active Ana Ocampo Active AMLODIPINE BESYLATE 5 MG ORAL TABLET 1 tablet by mouth daily 201 01/20/04 AMLODIPINE BESYLATE 36633591255 No Longer Active Jillina Fra donaldo FINANCE 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 COLCHICINE 59 841827656 Active Mitch Urbina DO Active COUMADIN 1 MG ORAL TABLET 2 tabs orally daily with the 5mg tab to equal 7mg daily WARFARIN SODIUM 76147182175 Active Renee Oconnor LPN Active INVOKANA 100 MG ORAL TABLET 1 tablet orally daily CANAGLIFLOZIN 63588376884 Active Renee Oconnoreder BURNETTN Active MECLIZINE HCL 25 MG ORAL TABLET 1 po tid 3 days, then 1/2 ta b tid 3 days MECLIZINE HCL 96803633960 No Longer Active Corey SEGURA Active ALLOPURINOL 300 MG ORAL TABLET Take 1 tablet by mouth daily 2012 ALLOPURINOL 05501084844 No Longer Active Corey SEGURA Active CLONIDINE HCL 0.1 MG ORAL TABLET 1 po bid 7 days, then 1/2 t ab po bid 7 days CLONIDINE HCL 46893797709 No Longer Active Corey SEGURA Active COUMADIN 5 MG ORAL TABLET 1 tab PO daily WARFAR IN SODIUM 41702751065 Active Renee Oconnor LPN Active COUMADIN 4 MG ORAL TABLET 1 tablet daily WARFAR IN SODIUM 32802134015 No Longer Active Corey SEGURA Active POLYTRIM 80059-5.1 UNIT/ML-% OPHTHALMIC SOLUTION 1 rui p in affected eye every 3 hours while awake x 7 days POLYMYXIN B-TRIMETHOP RIM 30257774699 No Longer Active Corey SEGURA Active LOSARTAN POTASSIUM-HCTZ 100-12.5 MG ORAL TABLET 1 by m outh daily for high blood pressure LOSARTAN POTASSIUM-HCTZ 99120860742 No Longer A ctive Mitch Urbina DO Active LISINOPRIL-HYDROCHLOROTHIAZIDE 20-12.5 MG ORAL TABLET 1 tab by m outh daily LISINOPRIL-HYDROCHLOROTHIAZIDE 14907808527 No Longer Active Mitch Urbina DO Active LISINOPRIL 20 MG ORAL TABLET 1 tab po at HS LIS INOPRIL 64394824822 No Longer Active Mitch Urbina DO Active COUMADIN 5 MG ORAL TABLET 1 by mouth every other day 2 WARFARIN SODIUM 67400495206 No Longer Active Mitch Urbina DO Active COUMADIN 6 MG ORAL TABLET 1 by mouth every other day 2 WARFARIN SODIUM 32215385672 No Longer Active Mitch Urbina DO Active SIMVASTATIN 40 MG ORAL TABLET 1 tab daily at bedtime SIMVASTATIN 36875830587 Active Mitch Urbina DO Active SIMVASTATIN 20 MG ORAL TABLET 1 tab daily at bedtime 2 SIMVASTATIN 39811229311 No Longer Active Mitch Urbina DO Active LOVENOX 100 MG/ML SUBCUTANEOUS SOLUTION One injection twice a da y ENOXAPARIN SODIUM 20460899432 No Longer Active Carmine Yusuf MD Active JANUVIA 50 MG ORAL TABLET Take one by mouth daily SITAGLIPTIN PHOSPHATE 06067707170 Active Renee Elvin DE LA ROSA Active JANUVIA 100 MG ORAL TABLET 1/2 by mouth every day 2011 SITAGLIPTIN PHOSPHATE 04045352958 No Longer Active Bijal Segal RN Acti ve METFORMIN HCL 500 MG ORAL TABLET 2 by mouth twice daily METFORMIN HCL 31786724359 No Longer Active Renee Oconnor LPN Active COLCRYS 0.6 MG ORAL TABLET 1 po q 6 hours prn gout pain COLCHICINE 14826153113 No Longer Active Camila Reese Active LISINOPRIL 5 MG ORAL TABLET 1 by mouth every day 11/17 LISINOPRIL 63158406350 No Longer Active Nguyen Perez Active KLOR-CON 20 MEQ ORAL PACKET Take one by mouth daily 09/10/08 POTASSIUM CHLORIDE 82304988443 No Longer Active Nguyen Perez Active FUROSEMIDE 40 MG ORAL TABLET 1 by mouth daily F UROSEMIDE 32633835168 No Longer Active Nguyen Perez Active PROVIGIL 100 MG ORAL TABLET Take one by mouth daily 08/20/04 MODAFINIL 43455247718 No Longer Active Mitch Urbina DO Active BACTRIM DS 800-160 MG ORAL TABLET 1 tab by mouth twice daily 201 10/19/09 TRIMETHOPRIM-SULFAMETHOXAZOLE 14182345832 No Longer Active Elian Hays MD Active ADULT ASPIRIN LOW STRENGTH 81 MG ORAL TABLET DISINTEGR ATING 1 by mouth every daily ASPIRIN 52057271317 Active Mitch Urbina DO Ac tive METOPROLOL TARTRATE 50 MG ORAL TABLET 1 by mouth twice daily METOPROLOL TARTRATE 84906677906 Active Maria Rivas RN Ac tive BACTRIM DS 800-160 MG ORAL TABLET 1 tab by mouth twice daily 201 10/19/09 BACTRIM DS 800-160 MG ORAL TABLET 103774 TRIMETHOPRIM-SULFAMETHOXAZOLE Inactive PROVIGIL 100 MG ORAL TABLET Take one by mouth daily 20 08/20/04 PROVIGIL 100 MG ORAL TABLET 742580 MODAFINIL Inactive FUROSEMIDE 40 MG ORAL TABLET 1 by mouth daily FUROSEMIDE 40 MG ORAL TABLET 626456 FUROSEMIDE Inactive KLOR-CON 20 MEQ ORAL PACKET Take one by mouth daily 20 09/10/08 KLOR- CON 20 MEQ ORAL PACKET 7881848 POTASSIUM CHLORIDE Inactive LISINOPRIL 5 MG ORAL TABLET 1 by mouth every day 11/17 LISINOPRIL 5 MG ORAL TABLET 667482 LISINOPRIL Inactive COLCRYS 0.6 MG ORAL TABLET 1 po q 6 hours prn gout pain COLCRYS 0.6 MG ORAL TABLET 474953 COLCHICINE Inactive JANUVIA 100 MG ORAL TABLET 1/2 by mouth every day 2011 JANUVIA 100 MG ORAL TABLET SITAGLIPTIN PHOSPHATE Inactive SIMVASTATIN 20 MG ORAL TABLET 1 tab daily at bedtime 2 SIMVASTATIN 20 MG ORAL TABLET 573164 SIMVASTATIN Inactive COUMADIN 6 MG ORAL TABLET 1 by mouth every other day 2 COUMADIN 6 MG ORAL TABLET 440120 WARFARIN SODIUM Inactive COUMADIN 5 MG ORAL TABLET 1 by mouth every other day 2 COUMADIN 5 MG ORAL TABLET 498251 WARFARIN SODIUM Inactive LISINOPRIL 20 MG ORAL TABLET 1 tab po at HS LISINOPRIL 20 MG ORAL TABLET 154318 LISINOPRIL Inactive LISINOPRIL-HYDROCHLOROTHIAZIDE 20-12.5 MG ORAL TABLET 1 tab by m outh daily LISINOPRIL-HYDROCHLOROTHIAZIDE 20-12.5 MG ORAL TABLET 959070 LISINOPRIL-HYDROCHLOROTHIAZIDE Inactive POLYTRIM 72321-7.1 UNIT/ML-% OPHTHALMIC SOLUTION 1 rui p in affected eye every 3 hours while awake x 7 days POLYTRIM 1000 0-0.1 UNIT/ML-% OPHTHALMIC SOLUTION 893150 POLYMYXIN B-TRIMETHOPRIM Inactive COUMADIN 4 MG ORAL TABLET 1 tablet daily COUMADIN 4 MG ORAL TABLET 460219 WARFARIN SODIUM Inactive CLONIDINE HCL 0.1 MG ORAL TABLET 1 po bid 7 days, then 1/2 t ab po bid 7 days CLONIDINE HCL 0.1 MG ORAL TABLET 438570 CLONIDIN E HCL Inactive ALLOPURINOL 300 MG ORAL TABLET Take 1 tablet by mouth daily 2012 ALLOPURINOL 300 MG ORAL TABLET 637033 ALLOPURINOL I nactive MECLIZINE HCL 25 MG ORAL TABLET 1 po tid 3 days, then 1/2 ta b tid 3 days MECLIZINE HCL 25 MG ORAL TABLET 476978 MECLIZINE HCL Inactive AMLODIPINE BESYLATE 5 MG ORAL TABLET 1 tablet by mouth daily 201 01/20/04 AMLODIPINE BESYLATE 5 MG ORAL TABLET 109787 AMLODIPINE BESYLATE Inactive KEFLEX 500 MG ORAL CAPSULE 1 po qid K EFLEX 500 MG ORAL CAPSULE 973335 CEPHALEXIN Inactive COLCRYS 0.6 MG ORAL TABLET 1 tab qid prn gout COLCRYS 0.6 MG ORAL TABLET 447081 COLCHICINE Inactive FAMOTIDINE 20 MG ORAL TABLET by mouth twice a day 2017 FAMOTIDINE 20 MG ORAL TABLET 745052 FAMOTIDINE Inactive GLIMEPIRIDE 2 MG ORAL TABLET 1 po BID GLIMEPIRIDE 2 MG ORAL TABLET 808697 GLIMEPIRIDE Inactive LOVENOX 100 MG/ML SUBCUTANEOUS SOLUTION One injection twice a da y LOVENOX 100 MG/ML SUBCUTANEOUS SOLUTION 587040 ENOXAPAR IN SODIUM Inactive Advance Directives Directive [...] 11 .6-14.8 platelet count 238 10^3/MM^3 10*3/mm3 561-115 5891/03/29 leukocyte count, blood 6.7 10^3/MM^3 10*3/mm3 4.6-10.2 [...] mg/dL Encounters Code Encounter Date Provider Facility CPT-18125 [id number] Vst-Est Level IV 10:06:35 CDT Stephy Urbina [facility] CPT-60852 [id number] Vst-Est Level IV 10:52:00 [employer] Stephy Urbina [facility] CPT-99162 Level 3 Est. Patient 18:25:53 CDT Mitch Castellano janelle [facility] CPT-45697 Level 3 Est. Patient 19:43:34 CDT Mitch luis [facility] CPT-34825 Level 4 Est. Patient 09:30:18 CDT Mitch luis [facility] CPT-82598 Level 3 Est. Patient 15:10:14 CDT Joe Jason kamara [facility] CPT-96459 Level 3 Est. Patient 15:03:46 CDT Joe Jason kamara [facility] CPT-95014 Level 3 Est. Patient 14:21:06 CDT Mitch luis [facility] CPT-00798 Level 3 Est. Patient 14:52:06 CDT Joe Jason kamara [facility] CPT-90029 Level 3 Est. Patient 09:34:30 [employer] Mitch luis [facility] CPT-51760 Level 3 Est. Patient 09:37:15 CDT Mitch luis [facility] CPT-73903 Level 3 Est. Patient 17:01:00 [employer] Mitch luis [facility] CPT-08527 Level 3 Est. Patient 13:53:19 [employer] Mitch luis [facility] CPT-84050 Level 3 Est. Patient 19:19:37 [employer] Mitch luis [facility] CPT-48607 Level 3 Est. Patient 13:25:53 [employer] Tavo toure MD [facility] CPT-77480 Level 3 Est. Patient 18:17:28 CDT Mitch luis [facility] CPT-99038 Level 3 Est. Patient 15:22:57 CDT Mitch luis [facility] CPT-76082 Level 3 Est. Patient 18:21:50 CDT Mitch luis [facility] CPT-58726 Level 3 Est. Patient 18:20:38 CDT Mitch luis [facility] CPT-70094 Level 3 Est. Patient 15:37:55 CDT Mitch luis [facility] CPT-23609 Level 2 Est. Patient 15:54:44 CDT Carmine benton MD [facility] CPT-85867 Level 3 Est. Patient 21:46:01 [employer] Mitch luis [facility] CPT-76561 Level 3 Est. Patient 22:15:50 CDT Mitch luis [facility] CPT-29455 Level 3 Est. Patient 10:48:15 CDT Mitch luis [facility] CPT-26558 Level 3 Est. Patient 23:20:57 CDT Tavo toure MD [facility] CPT-47435 Level 3 Est. Patient 16:26:13 CDT Mitch Arnol luis [facility] Procedures Code Procedure Name Date Entry Date Standard Desc ription CPT-JTINJ Asp/Joint Injection 18:47:02 CDT CPT-14667 Venipuncture Draw Fee 09:26:17 CDT CPT-87821 PT/INR - LAB USE ONLY 13:32:49 [employer] CPT-02111 Venipuncture Draw Fee 13:32:49 [employer] CPT-58718 PT/INR - LAB USE ONLY 10:34:49 [employer] CPT-32691 Venipuncture Draw Fee 10:34:48 [employer] CPT-42447 PT/INR - LAB USE ONLY 09:22:03 [employer] CPT-67216 Venipuncture Draw Fee 09:22:02 [employer] CPT-31435 Hemoccult IFOBT - LAB USE ONLY 10:27:22 CDT CPT-08922 Venipuncture Draw Fee 08:27:08 CDT CPT-31174 Liver Profile - LAB USE ONLY 08:27:07 CDT 2 CPT-81740 Microalbumin - LAB USE ONLY 08:27:07 CDT 20 25/05/09 CPT-08887 PT/INR - LAB USE ONLY 08:27:07 CDT CPT-83954 HGBA1C - LAB USE ONLY 08:27:07 CDT CPT-86611 CBC - LAB USE ONLY 08:27:07 CDT CPT-87752 Venipuncture Draw Fee 11:09:14 CDT CPT-89439 Venipuncture Draw Fee 08:32:21 [employer] CPT-19784 Venipuncture Draw Fee 09:38:56 [employer] CPT-29446 No Charge Offi Visit 21:36:07 CDT 1 CPT-52408 Venipuncture Draw Fee 10:13:28 [employer] CPT-68849 Venipuncture Draw Fee 08:31:11 CDT CPT-77621 Aspir/Inject Med Joint 18:17:28 CDT CPT-25973 Venipuncture Draw Fee 10:13:30 CDT CPT-13542 Venipuncture Draw Fee 08:31:43 [employer] CPT-JTINJ Joint Injection 18:34:50 CDT CPT-64923 Knee 3V 12:25:09 CDT CPT-41801 Venipuncture Draw Fee 12:15:57 CDT CPT-060 Medical Surveillance Exam 21:31:43 CDT 2011 CPT-80022 Venipuncture Draw Fee 08:32:05 [employer] CPT-OV Office Visit 18:19:06 CDT
--- OUTSIDE RECORDS SUMMARY | 2020-01-18 11:59 | XMS REPORT | Clinical Summary ---
Author Author Admin, Mitch Leon Organization [facility] Address Unknown Phone Unavailable Allergies, Adverse Reactions, [...] Coronary atherosclerosis of unspecified type of vessel, chitina or graft EDEMA 782.3 Resolved Mitch Urbina [...] daily for high b lood pressure MINOXIDIL 87900745958 Active Mitch Urbina DO Ac tive METFORMIN HCL ER 500 MG ORAL TABLET EXTENDED RELEASE 2 4 HOUR 2 tablets by mouth twice daily METFORMIN HCL 29322520697 Active Mitch Urbina DO Active GLIMEPIRIDE 4 MG ORAL TABLET 1 tablet by mouth twice daily f or diabetes GLIMEPIRIDE 59690751249 Active Mitch Urbina DO Active GLIMEPIRIDE 2 MG ORAL TABLET 1 po BID GLIMEPI RIDE 89471324120 No Longer Active Mitch Urbina DO Active AMLODIPINE BESYLATE 5 MG ORAL TABLET 1 tablet by mouth daily AMLODIPINE BESYLATE 43397118999 Active Mitch Urbina DO Active PROVIGIL 200 MG ORAL TABLET 1/2 tab po q day MODA FINIL 41386683699 Active Renee Oconnor LPN Active FAMOTIDINE 20 MG ORAL TABLET by mouth twice a day 2017 FAMOTIDINE 31338261562 No Longer Active Mitch Urbina DO Active COLCRYS 0.6 MG ORAL TABLET 1 tab qid prn gout C OLCHICINE 09809630513 No Longer Active Mitch Urbina DO Active KEFLEX 500 MG ORAL CAPSULE 1 po qid CEPHALEXI N 23035909036 No Longer Active Mitch Urbina DO Active LOSARTAN POTASSIUM 100 MG ORAL TABLET 1 pill by mouth daily, for blood pressure LOSARTAN POTASSIUM 46876472006 Active Ana Ocampo Active AMLODIPINE BESYLATE 5 MG ORAL TABLET 1 tablet by mouth daily 201 01/20/04 AMLODIPINE BESYLATE 68286851468 No Longer Active Joe fulton APRN Active MITIGARE 0.6 MG ORAL CAPSULE 2 capsules at onset of go ut pain, then take one capsule at 1 hour if symptoms persist. COLCHICINE 59 095013349 Active Mitch Urbina DO Active COUMADIN 1 MG ORAL TABLET 2 tabs orally daily with the 5mg tab to equal 7mg daily WARFARIN SODIUM 40245388513 Active Renee Oconnor LPN Active INVOKANA 100 MG ORAL TABLET 1 tablet orally daily CANAGLIFLOZIN 31405264266 Active Renee Elvin DE LA ROSA Active MECLIZINE HCL 25 MG ORAL TABLET 1 po tid 3 days, then 1/2 ta b tid 3 days MECLIZINE HCL 89664285125 No Longer Active Corey SEGURA Active ALLOPURINOL 300 MG ORAL TABLET Take 1 tablet by mouth daily 2012 ALLOPURINOL 11991526898 No Longer Active Corey SEGURA Active CLONIDINE HCL 0.1 MG ORAL TABLET 1 po bid 7 days, then 1/2 t ab po bid 7 days CLONIDINE HCL 80632520037 No Longer Active Corey SEGURA Active COUMADIN 5 MG ORAL TABLET 1 tab PO daily WARFAR IN SODIUM 67688051053 Active Renee Oconnor LPN Active COUMADIN 4 MG ORAL TABLET 1 tablet daily WARFAR IN SODIUM 32526279754 No Longer Active Corey SEGURA Active POLYTRIM 81647-3.1 UNIT/ML-% OPHTHALMIC SOLUTION 1 rui p in affected eye every 3 hours while awake x 7 days POLYMYXIN B-TRIMETHOP RIM 42464418827 No Longer Active Corey SEGURA Active LOSARTAN POTASSIUM-HCTZ 100-12.5 MG ORAL TABLET 1 by m outh daily for high blood pressure LOSARTAN POTASSIUM-HCTZ 54284463721 No Longer A ctive Mitch Urbina DO Active LISINOPRIL-HYDROCHLOROTHIAZIDE 20-12.5 MG ORAL TABLET 1 tab by m outh daily LISINOPRIL-HYDROCHLOROTHIAZIDE 16769936210 No Longer Active Mitch Urbina DO Active LISINOPRIL 20 MG ORAL TABLET 1 tab po at HS LIS INOPRIL 23689732038 No Longer Active Mitch Urbina DO Active COUMADIN 5 MG ORAL TABLET 1 by mouth every other day 2 WARFARIN SODIUM 99377899469 No Longer Active Mitch Urbina DO Active COUMADIN 6 MG ORAL TABLET 1 by mouth every other day 2 WARFARIN SODIUM 38209535945 No Longer Active Mitch Urbina DO Active SIMVASTATIN 40 MG ORAL TABLET 1 tab daily at bedtime SIMVASTATIN 22069198522 Active Maria Rivas RN Active SIMVASTATIN 20 MG ORAL TABLET 1 tab daily at bedtime 2 SIMVASTATIN 56663654931 No Longer Active Mitch Urbina DO Active LOVENOX 100 MG/ML SUBCUTANEOUS SOLUTION One injection twice a da y ENOXAPARIN SODIUM 00320338581 No Longer Active Carmine Yusuf MD Active JANUVIA 50 MG ORAL TABLET Take one by mouth daily SITAGLIPTIN PHOSPHATE 03222511853 Active Renee Elvin DE LA ROSA Active JANUVIA 100 MG ORAL TABLET 1/2 by mouth every day 2011 SITAGLIPTIN PHOSPHATE 91745974377 No Longer Active Bijal Segal RN Acti ve METFORMIN HCL 500 MG ORAL TABLET 2 by mouth twice daily METFORMIN HCL 67334157533 No Longer Active Renee Oconnor LPN Active COLCRYS 0.6 MG ORAL TABLET 1 po q 6 hours prn gout pain COLCHICINE 29455955561 No Longer Active Camila Reese Active LISINOPRIL 5 MG ORAL TABLET 1 by mouth every day 11/17 LISINOPRIL 26874689717 No Longer Active Nguyen Perez Active KLOR-CON 20 MEQ ORAL PACKET Take one by mouth daily 09/10/08 POTASSIUM CHLORIDE 06731529791 No Longer Active Nguyen Perez Active FUROSEMIDE 40 MG ORAL TABLET 1 by mouth daily F UROSEMIDE 12268805305 No Longer Active Nguyen Perez Active PROVIGIL 100 MG ORAL TABLET Take one by mouth daily 08/20/04 MODAFINIL 53222838340 No Longer Active Mitch Urbina DO Active BACTRIM DS 800-160 MG ORAL TABLET 1 tab by mouth twice daily 201 10/19/09 TRIMETHOPRIM-SULFAMETHOXAZOLE 39643048491 No Longer Active Elian Hays MD Active ADULT ASPIRIN LOW STRENGTH 81 MG ORAL TABLET DISINTEGR ATING 1 by mouth every daily ASPIRIN 37176323651 Active Mitch Urbina DO Ac tive METOPROLOL TARTRATE 50 MG ORAL TABLET 1 by mouth twice daily METOPROLOL TARTRATE 97879199554 Active Maria Rivas RN Ac tive BACTRIM DS 800-160 MG ORAL TABLET 1 tab by mouth twice daily 201 10/19/09 BACTRIM DS 800-160 MG ORAL TABLET 006102 TRIMETHOPRIM-SULFAMETHOXAZOLE Inactive PROVIGIL 100 MG ORAL TABLET Take one by mouth daily 20 08/20/04 PROVIGIL 100 MG ORAL TABLET 164554 MODAFINIL Inactive FUROSEMIDE 40 MG ORAL TABLET 1 by mouth daily FUROSEMIDE 40 MG ORAL TABLET 803595 FUROSEMIDE Inactive KLOR-CON 20 MEQ ORAL PACKET Take one by mouth daily 20 09/10/08 KLOR- CON 20 MEQ ORAL PACKET 2467268 POTASSIUM CHLORIDE Inactive LISINOPRIL 5 MG ORAL TABLET 1 by mouth every day 11/17 LISINOPRIL 5 MG ORAL TABLET 510677 LISINOPRIL Inactive COLCRYS 0.6 MG ORAL TABLET 1 po q 6 hours prn gout pain COLCRYS 0.6 MG ORAL TABLET 677592 COLCHICINE Inactive JANUVIA 100 MG ORAL TABLET 1/2 by mouth every day 2011 JANUVIA 100 MG ORAL TABLET SITAGLIPTIN PHOSPHATE Inactive SIMVASTATIN 20 MG ORAL TABLET 1 tab daily at bedtime 2 SIMVASTATIN 20 MG ORAL TABLET 306586 SIMVASTATIN Inactive COUMADIN 6 MG ORAL TABLET 1 by mouth every other day 2 COUMADIN 6 MG ORAL TABLET 611327 WARFARIN SODIUM Inactive COUMADIN 5 MG ORAL TABLET 1 by mouth every other day 2 COUMADIN 5 MG ORAL TABLET 359042 WARFARIN SODIUM Inactive LISINOPRIL 20 MG ORAL TABLET 1 tab po at HS LISINOPRIL 20 MG ORAL TABLET 678367 LISINOPRIL Inactive LISINOPRIL-HYDROCHLOROTHIAZIDE 20-12.5 MG ORAL TABLET 1 tab by m outh daily LISINOPRIL-HYDROCHLOROTHIAZIDE 20-12.5 MG ORAL TABLET 627370 LISINOPRIL-HYDROCHLOROTHIAZIDE Inactive POLYTRIM 00297-0.1 UNIT/ML-% OPHTHALMIC SOLUTION 1 rui p in affected eye every 3 hours while awake x 7 days POLYTRIM 1000 0-0.1 UNIT/ML-% OPHTHALMIC SOLUTION 143291 POLYMYXIN B-TRIMETHOPRIM Inactive COUMADIN 4 MG ORAL TABLET 1 tablet daily COUMADIN 4 MG ORAL TABLET 484071 WARFARIN SODIUM Inactive CLONIDINE HCL 0.1 MG ORAL TABLET 1 po bid 7 days, then 1/2 t ab po bid 7 days CLONIDINE HCL 0.1 MG ORAL TABLET 802715 CLONIDIN E HCL Inactive ALLOPURINOL 300 MG ORAL TABLET Take 1 tablet by mouth daily 2012 ALLOPURINOL 300 MG ORAL TABLET 251185 ALLOPURINOL I nactive MECLIZINE HCL 25 MG ORAL TABLET 1 po tid 3 days, then 1/2 ta b tid 3 days MECLIZINE HCL 25 MG ORAL TABLET 845472 MECLIZINE HCL Inactive AMLODIPINE BESYLATE 5 MG ORAL TABLET 1 tablet by mouth daily 201 01/20/04 AMLODIPINE BESYLATE 5 MG ORAL TABLET 583258 AMLODIPINE BESYLATE Inactive KEFLEX 500 MG ORAL CAPSULE 1 po qid K EFLEX 500 MG ORAL CAPSULE 314791 CEPHALEXIN Inactive COLCRYS 0.6 MG ORAL TABLET 1 tab qid prn gout COLCRYS 0.6 MG ORAL TABLET 765003 COLCHICINE Inactive FAMOTIDINE 20 MG ORAL TABLET by mouth twice a day 2017 FAMOTIDINE 20 MG ORAL TABLET 408885 FAMOTIDINE Inactive GLIMEPIRIDE 2 MG ORAL TABLET 1 po BID GLIMEPIRIDE 2 MG ORAL TABLET 450890 GLIMEPIRIDE Inactive LOVENOX 100 MG/ML SUBCUTANEOUS SOLUTION One injection twice a da y LOVENOX 100 MG/ML SUBCUTANEOUS SOLUTION 662419 ENOXAPAR IN SODIUM Inactive Advance Directives Directive [...] (RBC) count 4.96 10^6/MM^3 10*6/mm3 4.50-6.5 0 mean corpuscular volume, RBC 85 fL 80-97 mean corpuscular hemoglobin, RBC 26.6 pg 27. 0-31.2 mean corpuscular hemoglobin concentration, RBC 31.4 G/DL % 31.8-35.4 red blood cell distribution width 13.9 % 11 .6-14.8 platelet count 256 10^3/MM^3 10*3/mm3 953-304 8989/06/29 mean corpuscular hemoglobin, RBC 28.6 pg 27. 0-31.2 mean corpuscular hemoglobin concentration, RBC 32.7 G/DL % 31.8-35.4 red blood cell distribution width 16.2 % 11 .6-14.8 platelet count 238 10^3/MM^3 10*3/mm3 585-204 3280/06/29 leukocyte count, blood 6.4 10^3/MM^3 10*3/mm3 4.6-10.2 leukocyte count, blood 6.7 10^3/MM^3 10*3/mm3 4.6-10.2 erythrocyte (RBC) count 5.26 10^6/MM^3 10*6/mm3 4.50-6.5 0 hemoglobin, blood 14.0 g/dL 14.0-18.0 hematocrit, blood 44.5 % 40.0-54.0 Lab Report: CBC, MICROALB/CREAT W/RATIO - Lab [...] mg/dL Encounters Code Encounter Date Provider Facility CPT-57756 [id number] Vst-Est Level IV 10:06:35 CDT Stephy Urbina [facility] CPT-20675 [id number] Vst-Est Level IV 10:52:00 [employer] Stephy Urbina [facility] CPT-14013 Level 3 Est. Patient 18:25:53 CDT Mitch luis [facility] CPT-31620 Level 3 Est. Patient 19:43:34 CDT Mitch luis [facility] CPT-06330 Level 4 Est. Patient 09:30:18 CDT Mitch luis [facility] CPT-11881 Level 3 Est. Patient 15:10:14 CDT Joe kamara [facility] CPT-07859 Level 3 Est. Patient 15:03:46 CDT Joe Jason anh [facility] CPT-51629 Level 3 Est. Patient 14:21:06 CDT Mitch luis [facility] CPT-30690 Level 3 Est. Patient 14:52:06 CDT Joe Jason kamara [facility] CPT-41332 Level 3 Est. Patient 09:34:30 [employer] Mitch luis [facility] CPT-26971 Level 3 Est. Patient 09:37:15 CDT Mitch luis [facility] CPT-96603 Level 3 Est. Patient 17:01:00 [employer] Mitch luis [facility] CPT-50921 Level 3 Est. Patient 13:53:19 [employer] Mitch l[facility] CPT-67012 Level 3 Est. Patient 19:19:37 [employer] Mitch luis [facility] CPT-69365 Level 3 Est. Patient 13:25:53 [employer] Tavo toure MD [facility] CPT-90890 Level 3 Est. Patient 18:17:[address] [facility] CPT-65330 Level 3 Est. Patient 15:22:57 CDT Mitch luis [facility] CPT-95889 Level 3 Est. Patient 18:21:50 CDT Mitch luis [facility] CPT-22753 Level 3 Est. Patient 18:20:38 CDT Mitch luis [facility] CPT-61890 Level 3 Est. Patient 15:37:[address] [facility] CPT-95242 Level 2 Est. Patient 15:54:44 CDT Carmine benton MD [facility] CPT-42450 Level 3 Est. Patient 21:46:01 [employer] Mitch luis [facility] CPT-52916 Level 3 Est. Patient 22:15:[address] [facility] CPT-27094 Level 3 Est. Patient 10:48:[address] [facility] CPT-81488 Level 3 Est. Patient 23:20:57 CDT Tavo toure MD [facility] CPT-14332 Level 3 Est. Patient 16:26:13 CDT Mitch Ambrose Nona luis [facility] Procedures Code Procedure Name Date Entry Date Standard Desc ription CPT-JTINJ Asp/Joint Injection 18:47:02 CDT CPT-42957 Venipuncture Draw Fee 09:26:17 CDT CPT-13844 PT/INR - LAB USE ONLY 13:32:49 [employer] CPT-06821 Venipuncture Draw Fee 13:32:49 [employer] CPT-34866 PT/INR - LAB USE ONLY 10:34:49 [employer] CPT-95255 Venipuncture Draw Fee 10:34:48 [employer] CPT-51680 PT/INR - LAB USE ONLY 09:22:03 [employer] CPT-16151 Venipuncture Draw Fee 09:22:02 [employer] CPT-60231 Hemoccult IFOBT - LAB USE ONLY 10:27:22 CDT CPT-31110 Venipuncture Draw Fee 08:27:08 CDT CPT-15172 Liver Profile - LAB USE ONLY 08:27:07 CDT 2 CPT-48975 Microalbumin - LAB USE ONLY 08:27:07 CDT 20 25/05/09 CPT-74638 PT/INR - LAB USE ONLY 08:27:07 CDT CPT-50452 HGBA1C - LAB USE ONLY 08:27:07 CDT CPT-36477 CBC - LAB USE ONLY 08:27:07 CDT CPT-74487 Venipuncture Draw Fee 11:09:14 CDT CPT-82656 Venipuncture Draw Fee 08:32:21 [employer] CPT-15291 Venipuncture Draw Fee 09:38:56 [employer] CPT-86412 No Charge Offi Visit 21:36:07 CDT 1 CPT-04533 Venipuncture Draw Fee 10:13:28 [employer] CPT-47526 Venipuncture Draw Fee 08:31:11 CDT CPT-25079 Aspir/Inject Med Joint 18:17:28 CDT CPT-20124 Venipuncture Draw Fee 10:13:30 CDT CPT-09637 Venipuncture Draw Fee 08:31:43 [employer] CPT-JTINJ Joint Injection 18:34:50 CDT CPT-77256 Knee 3V 12:25:09 CDT CPT-67089 Venipuncture Draw Fee 12:15:57 CDT CPT-060 Medical Surveillance Exam 21:31:43 CDT 2011 CPT-69081 Venipuncture Draw Fee 08:32:05 [employer] CPT-OV Office Visit 18:19:06 CDT
--- OUTSIDE RECORDS SUMMARY | 2020-01-18 11:59 | XMS REPORT | Clinical Summary ---
Author Author Admin, Mitch Leon Organization [facility] [email or web address] Address Unknown Phone Unavailable Allergies, Adverse Reactions, [...] Coronary atherosclerosis of unspecified type of vessel, [place] or graft EDEMA 782.3 Resolved Mitch Urbina [...] Sebaceous cyst Cellulitis 682.9 Resolved Mitch Arnol Carlitso DO Cellulitis and abscess of unspecified sites [...] daily for high b lood pressure MINOXIDIL 71310762244 Active Mitch Urbina DO Ac tive METFORMIN HCL ER 500 MG ORAL TABLET EXTENDED RELEASE 2 4 HOUR 2 tablets by mouth twice daily METFORMIN HCL 26504925468 Active Mitch Urbina Active GLIMEPIRIDE 4 MG ORAL TABLET 1 tablet by mouth twice daily f or diabetes GLIMEPIRIDE 59726260913 Active Mitch Arnol Urbina Active GLIMEPIRIDE 2 MG ORAL TABLET 1 po BID GLIMEPI RIDE 61928046735 No Longer Active Mitch Urbina DO Active AMLODIPINE BESYLATE 5 MG ORAL TABLET 1 tablet by mouth daily AMLODIPINE BESYLATE 05114740631 Active Mitch Urbina DO Active PROVIGIL 200 MG ORAL TABLET 1/2 tab po q day MODA FINIL 16922596221 Active Renee Oconnor LPN Active FAMOTIDINE 20 MG ORAL TABLET by mouth twice a day 2017 FAMOTIDINE 84589275136 No Longer Active Mitch Urbina DO Active COLCRYS 0.6 MG ORAL TABLET 1 tab qid prn gout C OLCHICINE 93240369265 No Longer Active Mitch Urbina DO Active KEFLEX 500 MG ORAL CAPSULE 1 po qid CEPHALEXI N 08625375834 No Longer Active Mitch Urbina DO Active LOSARTAN POTASSIUM 100 MG ORAL TABLET 1 pill by mouth daily, for blood pressure LOSARTAN POTASSIUM 73277187812 Active Ana Ocampo Active AMLODIPINE BESYLATE 5 MG ORAL TABLET 1 tablet by mouth daily 201 01/20/04 AMLODIPINE BESYLATE 89458469374 No Longer Active Jillina Fra donaldo CODING QUALITY ANALYST Active MITIGARE 0.6 MG ORAL CAPSULE 2 capsules at onset of go ut pain, then take one capsule at 1 hour if symptoms persist. COLCHICINE 59 108423813 Active Mitch Urbina DO Active COUMADIN 1 MG ORAL TABLET 2 tabs orally daily with the 5mg tab to equal 7mg daily WARFARIN SODIUM 82333386151 Active Renee Oconnor LPN Active INVOKANA 100 MG ORAL TABLET 1 tablet orally daily CANAGLIFLOZIN 28276245490 Active Renee Oconnoreder BURNETTN Active MECLIZINE HCL 25 MG ORAL TABLET 1 po tid 3 days, then 1/2 ta b tid 3 days MECLIZINE HCL 93268381071 No Longer Active Corey SEGURA Active ALLOPURINOL 300 MG ORAL TABLET Take 1 tablet by mouth daily 2012 ALLOPURINOL 47510946946 No Longer Active Corey SEGURA Active CLONIDINE HCL 0.1 MG ORAL TABLET 1 po bid 7 days, then 1/2 t ab po bid 7 days CLONIDINE HCL 06756989172 No Longer Active Corey SEGURA Active COUMADIN 5 MG ORAL TABLET 1 tab PO daily WARFAR IN SODIUM 44116189115 Active Renee Oconnor LPN Active COUMADIN 4 MG ORAL TABLET 1 tablet daily WARFAR IN SODIUM 54627984272 No Longer Active Corey SEGURA Active POLYTRIM 09036-5.1 UNIT/ML-% OPHTHALMIC SOLUTION 1 rui p in affected eye every 3 hours while awake x 7 days POLYMYXIN B-TRIMETHOP RIM 69863636397 No Longer Active Corey SEGURA Active LOSARTAN POTASSIUM-HCTZ 100-12.5 MG ORAL TABLET 1 by m outh daily for high blood pressure LOSARTAN POTASSIUM-HCTZ 64865899795 No Longer A ctive Mitch Urbina DO Active LISINOPRIL-HYDROCHLOROTHIAZIDE 20-12.5 MG ORAL TABLET 1 tab by m outh daily LISINOPRIL-HYDROCHLOROTHIAZIDE 63863497488 No Longer Active Mitch Urbina DO Active LISINOPRIL 20 MG ORAL TABLET 1 tab po at HS LIS INOPRIL 73984677556 No Longer Active Mitch Urbina DO Active COUMADIN 5 MG ORAL TABLET 1 by mouth every other day 2 WARFARIN SODIUM 51230921050 No Longer Active Mitch Urbina DO Active COUMADIN 6 MG ORAL TABLET 1 by mouth every other day 2 WARFARIN SODIUM 36566065863 No Longer Active Mitch Urbina DO Active SIMVASTATIN 40 MG ORAL TABLET 1 tab daily at bedtime SIMVASTATIN 01238125823 Active Maria Rivas RN Active SIMVASTATIN 20 MG ORAL TABLET 1 tab daily at bedtime 2 SIMVASTATIN 84717137456 No Longer Active Mitch Urbina DO Active LOVENOX 100 MG/ML SUBCUTANEOUS SOLUTION One injection twice a da y ENOXAPARIN SODIUM 83830156532 No Longer Active Carmine Yusuf MD Active JANUVIA 50 MG ORAL TABLET Take one by mouth daily SITAGLIPTIN PHOSPHATE 32431402548 Active Renee Elvin DE LA ROSA Active JANUVIA 100 MG ORAL TABLET 1/2 by mouth every day 2011 SITAGLIPTIN PHOSPHATE 17147044303 No Longer Active Bijal Segal RN Acti ve METFORMIN HCL 500 MG ORAL TABLET 2 by mouth twice daily METFORMIN HCL 10469596071 No Longer Active Renee Oconnor LPN Active COLCRYS 0.6 MG ORAL TABLET 1 po q 6 hours prn gout pain COLCHICINE 14974019448 No Longer Active Camila Reese Active LISINOPRIL 5 MG ORAL TABLET 1 by mouth every day 11/17 LISINOPRIL 26677463879 No Longer Active Nguyen Perez Active KLOR-CON 20 MEQ ORAL PACKET Take one by mouth daily 09/10/08 POTASSIUM CHLORIDE 40552318221 No Longer Active Nguyen Perez Active FUROSEMIDE 40 MG ORAL TABLET 1 by mouth daily F UROSEMIDE 83466551876 No Longer Active Nguyen Perez Active PROVIGIL 100 MG ORAL TABLET Take one by mouth daily 08/20/04 MODAFINIL 98212757583 No Longer Active Mitch Urbina DO Active BACTRIM DS 800-160 MG ORAL TABLET 1 tab by mouth twice daily 201 10/19/09 TRIMETHOPRIM-SULFAMETHOXAZOLE 27648618678 No Longer Active Elian Hays MD Active ADULT ASPIRIN LOW STRENGTH 81 MG ORAL TABLET DISINTEGR ATING 1 by mouth every daily ASPIRIN 46587157983 Active Mitch Urbina DO Ac tive METOPROLOL TARTRATE 50 MG ORAL TABLET 1 by mouth twice daily METOPROLOL TARTRATE 96216189226 Active Maria Rivas RN Ac tive BACTRIM DS 800-160 MG ORAL TABLET 1 tab by mouth twice daily 201 10/19/09 BACTRIM DS 800-160 MG ORAL TABLET 304174 TRIMETHOPRIM-SULFAMETHOXAZOLE Inactive PROVIGIL 100 MG ORAL TABLET Take one by mouth daily 20 08/20/04 PROVIGIL 100 MG ORAL TABLET 805492 MODAFINIL Inactive FUROSEMIDE 40 MG ORAL TABLET 1 by mouth daily FUROSEMIDE 40 MG ORAL TABLET 942544 FUROSEMIDE Inactive KLOR-CON 20 MEQ ORAL PACKET Take one by mouth daily 20 09/10/08 KLOR- CON 20 MEQ ORAL PACKET 8670696 POTASSIUM CHLORIDE Inactive LISINOPRIL 5 MG ORAL TABLET 1 by mouth every day 11/17 LISINOPRIL 5 MG ORAL TABLET 620085 LISINOPRIL Inactive COLCRYS 0.6 MG ORAL TABLET 1 po q 6 hours prn gout pain COLCRYS 0.6 MG ORAL TABLET 116470 COLCHICINE Inactive JANUVIA 100 MG ORAL TABLET 1/2 by mouth every day 2011 JANUVIA 100 MG ORAL TABLET SITAGLIPTIN PHOSPHATE Inactive SIMVASTATIN 20 MG ORAL TABLET 1 tab daily at bedtime 2 SIMVASTATIN 20 MG ORAL TABLET 697971 SIMVASTATIN Inactive COUMADIN 6 MG ORAL TABLET 1 by mouth every other day 2 COUMADIN 6 MG ORAL TABLET 719300 WARFARIN SODIUM Inactive COUMADIN 5 MG ORAL TABLET 1 by mouth every other day 2 COUMADIN 5 MG ORAL TABLET 786769 WARFARIN SODIUM Inactive LISINOPRIL 20 MG ORAL TABLET 1 tab po at HS LISINOPRIL 20 MG ORAL TABLET 077134 LISINOPRIL Inactive LISINOPRIL-HYDROCHLOROTHIAZIDE 20-12.5 MG ORAL TABLET 1 tab by m outh daily LISINOPRIL-HYDROCHLOROTHIAZIDE 20-12.5 MG ORAL TABLET 714247 LISINOPRIL-HYDROCHLOROTHIAZIDE Inactive POLYTRIM 03710-1.1 UNIT/ML-% OPHTHALMIC SOLUTION 1 rui p in affected eye every 3 hours while awake x 7 days POLYTRIM 1000 0-0.1 UNIT/ML-% OPHTHALMIC SOLUTION 028987 POLYMYXIN B-TRIMETHOPRIM Inactive COUMADIN 4 MG ORAL TABLET 1 tablet daily COUMADIN 4 MG ORAL TABLET 168540 WARFARIN SODIUM Inactive CLONIDINE HCL 0.1 MG ORAL TABLET 1 po bid 7 days, then 1/2 t ab po bid 7 days CLONIDINE HCL 0.1 MG ORAL TABLET 834149 CLONIDIN E HCL Inactive ALLOPURINOL 300 MG ORAL TABLET Take 1 tablet by mouth daily 2012 ALLOPURINOL 300 MG ORAL TABLET 150138 ALLOPURINOL I nactive MECLIZINE HCL 25 MG ORAL TABLET 1 po tid 3 days, then 1/2 ta b tid 3 days MECLIZINE HCL 25 MG ORAL TABLET 908182 MECLIZINE HCL Inactive AMLODIPINE BESYLATE 5 MG ORAL TABLET 1 tablet by mouth daily 201 01/20/04 AMLODIPINE BESYLATE 5 MG ORAL TABLET 763055 AMLODIPINE BESYLATE Inactive KEFLEX 500 MG ORAL CAPSULE 1 po qid K EFLEX 500 MG ORAL CAPSULE 135269 CEPHALEXIN Inactive COLCRYS 0.6 MG ORAL TABLET 1 tab qid prn gout COLCRYS 0.6 MG ORAL TABLET 065793 COLCHICINE Inactive FAMOTIDINE 20 MG ORAL TABLET by mouth twice a day 2017 FAMOTIDINE 20 MG ORAL TABLET 440837 FAMOTIDINE Inactive GLIMEPIRIDE 2 MG ORAL TABLET 1 po BID GLIMEPIRIDE 2 MG ORAL TABLET 574245 GLIMEPIRIDE Inactive LOVENOX 100 MG/ML SUBCUTANEOUS SOLUTION One injection twice a da y LOVENOX 100 MG/ML SUBCUTANEOUS SOLUTION 536401 ENOXAPAR IN SODIUM Inactive Advance Directives Directive [...] 11 .6-14.8 platelet count 256 10^3/MM^3 10*3/mm3 109-476 6631/06/29 leukocyte count, blood 6.4 10^3/MM^3 10*3/mm3 4.6-10.2 [...] mg/dL Encounters Code Encounter Date Provider Facility CPT-04017 [id number] Vst-Est Level IV 10:06:35 CDT Stephy Urbina [facility] CPT-66927 [id number] Vst-Est Level IV 10:52:00 FISH PROCESSING SUPERVISOR Stephy Urbina [facility] CPT-08042 Level 3 Est. Patient 18:25:53 CDT Mitch luis [facility] CPT-28770 Level 3 Est. Patient 19:43:34 CDT Mitch luis [facility] CPT-39837 Level 4 Est. Patient 09:30:18 CDT Mitch luis [facility] CPT-00956 Level 3 Est. Patient 15:10:14 CDT Joe kamara [facility] CPT-33682 Level 3 Est. Patient 15:03:46 CDT Joe kamara [facility] CPT-04552 Level 3 Est. Patient 14:21:06 CDT Mitch luis [facility] CPT-49573 Level 3 Est. Patient 14:52:06 CDT Joe kamara [facility] CPT-47111 Level 3 Est. Patient 09:34:30 FISH PROCESSING SUPERVISOR Mitch luis [facility] CPT-54970 Level 3 Est. Patient 09:37:15 CDT Mitch luis [facility] CPT-27292 Level 3 Est. Patient 17:01:00 FISH PROCESSING SUPERVISOR Mitch luis [facility] CPT-33037 Level 3 Est. Patient 13:53:19 FISH PROCESSING SUPERVISOR Mitch luis [facility] CPT-55455 Level 3 Est. Patient 19:19:37 FISH PROCESSING SUPERVISOR Mitch luis [facility] CPT-78680 Level 3 Est. Patient 13:25:53 FISH PROCESSING SUPERVISOR Tavo toure MD [facility] CPT-84439 Level 3 Est. Patient 18:17:28 CDT Mitch Arnol luis [facility] CPT-60491 Level 3 Est. Patient 15:22:57 CDT Mitch Arnol luis [facility] CPT-29020 Level 3 Est. Patient 18:21:50 CDT Mitch luis [facility] CPT-84242 Level 3 Est. Patient 18:20:38 CDT Mitch Arnol luis [facility] CPT-94476 Level 3 Est. Patient 15:37:55 CDT Mitch Arnol luis [facility] CPT-17366 Level 2 Est. Patient 15:54:44 CDT Carmine benton MD [facility] CPT-55465 Level 3 Est. Patient 21:46:01 FISH PROCESSING SUPERVISOR Mitch luis [facility] CPT-16743 Level 3 Est. Patient 22:15:50 CDT Mitch luis [facility] CPT-71717 Level 3 Est. Patient 10:48:15 CDT Mitch luis [facility] CPT-81131 Level 3 Est. Patient 23:20:57 CDT Tavo toure MD [facility] CPT-36094 Level 3 Est. Patient 16:26:13 CDT Mitch Castellano janelle [facility] Procedures Code Procedure Name Date Entry Date Standard Desc ription CPT-JTINJ Asp/Joint Injection 18:47:02 CDT CPT-95920 Venipuncture Draw Fee 09:26:17 CDT CPT-59901 PT/INR - LAB USE ONLY 13:32:49 FISH PROCESSING SUPERVISOR CPT-44498 Venipuncture Draw Fee 13:32:49 FISH PROCESSING SUPERVISOR CPT-96334 PT/INR - LAB USE ONLY 10:34:49 FISH PROCESSING SUPERVISOR CPT-92272 Venipuncture Draw Fee 10:34:48 FISH PROCESSING SUPERVISOR CPT-02790 PT/INR - LAB USE ONLY 09:22:03 FISH PROCESSING SUPERVISOR CPT-51426 Venipuncture Draw Fee 09:22:02 FISH PROCESSING SUPERVISOR CPT-48902 Hemoccult IFOBT - LAB USE ONLY 10:27:22 CDT CPT-83992 Venipuncture Draw Fee 08:27:08 CDT CPT-37805 Liver Profile - LAB USE ONLY 08:27:07 CDT 2 CPT-91165 Microalbumin - LAB USE ONLY 08:27:07 CDT 20 25/05/09 CPT-95760 PT/INR - LAB USE ONLY 08:27:07 CDT CPT-56500 HGBA1C - LAB USE ONLY 08:27:07 CDT CPT-82630 CBC - LAB USE ONLY 08:27:07 CDT CPT-04988 Venipuncture Draw Fee 11:09:14 CDT CPT-21105 Venipuncture Draw Fee 08:32:21 FISH PROCESSING SUPERVISOR CPT-64885 Venipuncture Draw Fee 09:38:56 FISH PROCESSING SUPERVISOR CPT-10292 No Charge Offi Visit 21:36:07 CDT 1 CPT-41213 Venipuncture Draw Fee 10:13:28 FISH PROCESSING SUPERVISOR CPT-35630 Venipuncture Draw Fee 08:31:11 CDT CPT-47029 Aspir/Inject Med Joint 18:17:28 CDT CPT-94605 Venipuncture Draw Fee 10:13:30 CDT CPT-50285 Venipuncture Draw Fee 08:31:43 FISH PROCESSING SUPERVISOR CPT-JTINJ Joint Injection 18:34:50 CDT CPT-67725 Knee 3V 12:25:09 CDT CPT-68712 Venipuncture Draw Fee 12:15:57 CDT CPT-060 Medical Surveillance Exam 21:31:43 CDT 2011 CPT-79351 Venipuncture Draw Fee 08:32:05 FISH PROCESSING SUPERVISOR CPT-OV Office Visit 18:19:06 CDT
--- OUTSIDE RECORDS SUMMARY | 2020-01-18 11:59 | XMS REPORT | Clinical Summary ---
Author Author Admin, Mitch Leon Organization [facility] [employer] Address Unknown Phone Unavailable Allergies, Adverse Reactions, [...] Coronary atherosclerosis of unspecified type of vessel, [place] or graft EDEMA 782.3 Resolved Mitch Urbina [...] daily for high b lood pressure MINOXIDIL 79528292239 Active Mitch Urbina DO Ac tive METFORMIN HCL ER 500 MG ORAL TABLET EXTENDED RELEASE 2 4 HOUR 2 tablets by mouth twice daily METFORMIN HCL 15214894323 Active Mitch Urbina DO Active GLIMEPIRIDE 4 MG ORAL TABLET 1 tablet by mouth twice daily f or diabetes GLIMEPIRIDE 61610066378 Active Mitch Urbina DO Active GLIMEPIRIDE 2 MG ORAL TABLET 1 po BID GLIMEPI RIDE 86755353881 No Longer Active Mitch Urbina DO Active AMLODIPINE BESYLATE 5 MG ORAL TABLET 1 tablet by mouth daily AMLODIPINE BESYLATE 98382216613 Active Mitch Urbina DO Active PROVIGIL 200 MG ORAL TABLET 1/2 tab po q day MODA FINIL 43557490588 Active Renee Oconnor LPN Active FAMOTIDINE 20 MG ORAL TABLET by mouth twice a day 2017 FAMOTIDINE 73180373529 No Longer Active Mitch Urbina DO Active COLCRYS 0.6 MG ORAL TABLET 1 tab qid prn gout C OLCHICINE 14683977128 No Longer Active Mitch Urbina DO Active KEFLEX 500 MG ORAL CAPSULE 1 po qid CEPHALEXI N 36503788981 No Longer Active Mitch Urbina DO Active LOSARTAN POTASSIUM 100 MG ORAL TABLET 1 pill by mouth daily, for blood pressure LOSARTAN POTASSIUM 54935399445 Active Ana Ocampo Active AMLODIPINE BESYLATE 5 MG ORAL TABLET 1 tablet by mouth daily 201 01/20/04 AMLODIPINE BESYLATE 27818738933 No Longer Active Joe fulton APRN Active MITIGARE 0.6 MG ORAL CAPSULE 2 capsules at onset of go ut pain, then take one capsule at 1 hour if symptoms persist. COLCHICINE 59 783984725 Active Mitch Urbina DO Active COUMADIN 1 MG ORAL TABLET 2 tabs orally daily with the 5mg tab to equal 7mg daily WARFARIN SODIUM 84963372199 Active Renee Oconnor LPN Active INVOKANA 100 MG ORAL TABLET 1 tablet orally daily CANAGLIFLOZIN 64836556383 Active Mitch Urbina DO Active MECLIZINE HCL 25 MG ORAL TABLET 1 po tid 3 days, then 1/2 ta b tid 3 days MECLIZINE HCL 10129057562 No Longer Active Corey SEGURA Active ALLOPURINOL 300 MG ORAL TABLET Take 1 tablet by mouth daily 2012 ALLOPURINOL 39123210539 No Longer Active Corey SEGURA Active CLONIDINE HCL 0.1 MG ORAL TABLET 1 po bid 7 days, then 1/2 t ab po bid 7 days CLONIDINE HCL 90165325787 No Longer Active Corey SEGURA Active COUMADIN 5 MG ORAL TABLET 1 tab PO daily WARFAR IN SODIUM 89823419816 Active Renee Oconnor LPN Active COUMADIN 4 MG ORAL TABLET 1 tablet daily WARFAR IN SODIUM 36221321196 No Longer Active Corey SEGURA Active POLYTRIM 49040-3.1 UNIT/ML-% OPHTHALMIC SOLUTION 1 rui p in affected eye every 3 hours while awake x 7 days POLYMYXIN B-TRIMETHOP RIM 00220758814 No Longer Active Corey SEGURA Active LOSARTAN POTASSIUM-HCTZ 100-12.5 MG ORAL TABLET 1 by m outh daily for high blood pressure LOSARTAN POTASSIUM-HCTZ 42572692066 No Longer A ctive Mitch Urbina DO Active LISINOPRIL-HYDROCHLOROTHIAZIDE 20-12.5 MG ORAL TABLET 1 tab by m outh daily LISINOPRIL-HYDROCHLOROTHIAZIDE 36505949877 No Longer Active Mitch Urbina DO Active LISINOPRIL 20 MG ORAL TABLET 1 tab po at HS LIS INOPRIL 67280152100 No Longer Active Mitch Urbina DO Active COUMADIN 5 MG ORAL TABLET 1 by mouth every other day 2 WARFARIN SODIUM 14026019908 No Longer Active Mitch Urbina DO Active COUMADIN 6 MG ORAL TABLET 1 by mouth every other day 2 WARFARIN SODIUM 74906687947 No Longer Active Mitch Urbina DO Active SIMVASTATIN 40 MG ORAL TABLET 1 tab daily at bedtime SIMVASTATIN 96924001598 Active Maria Rivas RN Active SIMVASTATIN 20 MG ORAL TABLET 1 tab daily at bedtime 2 SIMVASTATIN 14656980762 No Longer Active Mitch Urbina DO Active LOVENOX 100 MG/ML SUBCUTANEOUS SOLUTION One injection twice a da y ENOXAPARIN SODIUM 47634641083 No Longer Active Carmine Yusuf MD Active JANUVIA 50 MG ORAL TABLET Take one by mouth daily SITAGLIPTIN PHOSPHATE 71897350832 Active Renee Elvin DE LA ROSA Active JANUVIA 100 MG ORAL TABLET 1/2 by mouth every day 2011 SITAGLIPTIN PHOSPHATE 83720422330 No Longer Active Bijal Segal RN Acti ve METFORMIN HCL 500 MG ORAL TABLET 2 by mouth twice daily METFORMIN HCL 04297652752 No Longer Active Renee Oconnor LPN Active COLCRYS 0.6 MG ORAL TABLET 1 po q 6 hours prn gout pain COLCHICINE 31595942732 No Longer Active Camila Reese Active LISINOPRIL 5 MG ORAL TABLET 1 by mouth every day 11/17 LISINOPRIL 40464546647 No Longer Active Nguyen Perez Active KLOR-CON 20 MEQ ORAL PACKET Take one by mouth daily 09/10/08 POTASSIUM CHLORIDE 86320323067 No Longer Active Nguyen Perez Active FUROSEMIDE 40 MG ORAL TABLET 1 by mouth daily F UROSEMIDE 72678286084 No Longer Active Nguyen Perez Active PROVIGIL 100 MG ORAL TABLET Take one by mouth daily 08/20/04 MODAFINIL 00459389467 No Longer Active Mitch W Carlitos DO Active BACTRIM DS 800-160 MG ORAL TABLET 1 tab by mouth twice daily 201 10/19/09 TRIMETHOPRIM-SULFAMETHOXAZOLE 21331954984 No Longer Active Elian Hays MD Active ADULT ASPIRIN LOW STRENGTH 81 MG ORAL TABLET DISINTEGR ATING 1 by mouth every daily ASPIRIN 02452966278 Active Mitch Urbina DO Ac tive METOPROLOL TARTRATE 50 MG ORAL TABLET 1 by mouth twice daily METOPROLOL TARTRATE 61517401828 Active Maria Rivas RN Ac tive BACTRIM DS 800-160 MG ORAL TABLET 1 tab by mouth twice daily 201 10/19/09 BACTRIM DS 800-160 MG ORAL TABLET 555509 TRIMETHOPRIM-SULFAMETHOXAZOLE Inactive PROVIGIL 100 MG ORAL TABLET Take one by mouth daily 20 08/20/04 PROVIGIL 100 MG ORAL TABLET 474993 MODAFINIL Inactive FUROSEMIDE 40 MG ORAL TABLET 1 by mouth daily FUROSEMIDE 40 MG ORAL TABLET 196050 FUROSEMIDE Inactive KLOR-CON 20 MEQ ORAL PACKET Take one by mouth daily 20 09/10/08 KLOR- CON 20 MEQ ORAL PACKET 0555989 POTASSIUM CHLORIDE Inactive LISINOPRIL 5 MG ORAL TABLET 1 by mouth every day 11/17 LISINOPRIL 5 MG ORAL TABLET 020062 LISINOPRIL Inactive COLCRYS 0.6 MG ORAL TABLET 1 po q 6 hours prn gout pain COLCRYS 0.6 MG ORAL TABLET 791190 COLCHICINE Inactive JANUVIA 100 MG ORAL TABLET 1/2 by mouth every day 2011 JANUVIA 100 MG ORAL TABLET SITAGLIPTIN PHOSPHATE Inactive SIMVASTATIN 20 MG ORAL TABLET 1 tab daily at bedtime 2 SIMVASTATIN 20 MG ORAL TABLET 892070 SIMVASTATIN Inactive COUMADIN 6 MG ORAL TABLET 1 by mouth every other day 2 COUMADIN 6 MG ORAL TABLET 566001 WARFARIN SODIUM Inactive COUMADIN 5 MG ORAL TABLET 1 by mouth every other day 2 COUMADIN 5 MG ORAL TABLET 653966 WARFARIN SODIUM Inactive LISINOPRIL 20 MG ORAL TABLET 1 tab po at HS LISINOPRIL 20 MG ORAL TABLET 908229 LISINOPRIL Inactive LISINOPRIL-HYDROCHLOROTHIAZIDE 20-12.5 MG ORAL TABLET 1 tab by m outh daily LISINOPRIL-HYDROCHLOROTHIAZIDE 20-12.5 MG ORAL TABLET 135722 LISINOPRIL-HYDROCHLOROTHIAZIDE Inactive POLYTRIM 12254-0.1 UNIT/ML-% OPHTHALMIC SOLUTION 1 rui p in affected eye every 3 hours while awake x 7 days POLYTRIM 1000 0-0.1 UNIT/ML-% OPHTHALMIC SOLUTION 596625 POLYMYXIN B-TRIMETHOPRIM Inactive COUMADIN 4 MG ORAL TABLET 1 tablet daily COUMADIN 4 MG ORAL TABLET 296759 WARFARIN SODIUM Inactive CLONIDINE HCL 0.1 MG ORAL TABLET 1 po bid 7 days, then 1/2 t ab po bid 7 days CLONIDINE HCL 0.1 MG ORAL TABLET 160143 CLONIDIN E HCL Inactive ALLOPURINOL 300 MG ORAL TABLET Take 1 tablet by mouth daily 2012 ALLOPURINOL 300 MG ORAL TABLET 694039 ALLOPURINOL I nactive MECLIZINE HCL 25 MG ORAL TABLET 1 po tid 3 days, then 1/2 ta b tid 3 days MECLIZINE HCL 25 MG ORAL TABLET 934987 MECLIZINE HCL Inactive AMLODIPINE BESYLATE 5 MG ORAL TABLET 1 tablet by mouth daily 201 01/20/04 AMLODIPINE BESYLATE 5 MG ORAL TABLET 468439 AMLODIPINE BESYLATE Inactive KEFLEX 500 MG ORAL CAPSULE 1 po qid K EFLEX 500 MG ORAL CAPSULE 977042 CEPHALEXIN Inactive COLCRYS 0.6 MG ORAL TABLET 1 tab qid prn gout COLCRYS 0.6 MG ORAL TABLET 381249 COLCHICINE Inactive FAMOTIDINE 20 MG ORAL TABLET by mouth twice a day 2017 FAMOTIDINE 20 MG ORAL TABLET 450976 FAMOTIDINE Inactive GLIMEPIRIDE 2 MG ORAL TABLET 1 po BID GLIMEPIRIDE 2 MG ORAL TABLET 274161 GLIMEPIRIDE Inactive LOVENOX 100 MG/ML SUBCUTANEOUS SOLUTION One injection twice a da y LOVENOX 100 MG/ML SUBCUTANEOUS SOLUTION 616745 ENOXAPAR IN SODIUM Inactive Advance Directives Directive [...] 11 .6-14.8 platelet count 238 10^3/MM^3 10*3/mm3 786-959 6534/03/29 leukocyte count, blood 6.7 10^3/MM^3 10*3/mm3 4.6-10.2 [...] mg/dL Encounters Code Encounter Date Provider Facility CPT-34906 [id number] Vst-Est Level IV 10:06:35 CDT Stephy Urbina [facility]-04455 55039-Bnp Vst-Est Level IV 10:52:00 ER PHYSICIAN Stephy Urbina [facility] CPT-84855 Level 3 Est. Patient 18:25:53 CDT Mitch Castellano janelle [facility] CPT-06433 Level 3 Est. Patient 19:43:34 CDT Mitch luis [facility] CPT-86533 Level 4 Est. Patient 09:30:18 CDT Mitch ulis [facility] CPT-99755 Level 3 Est. Patient 15:10:14 CDT Joe Jason kamara [facility] CPT-61480 Level 3 Est. Patient 15:03:46 CDT Joe Jason kamara [facility] CPT-20340 Level 3 Est. Patient 14:21:06 CDT Mitch luis [facility] CPT-67914 Level 3 Est. Patient 14:52:06 CDT Joe Jason kamara [facility] CPT-82920 Level 3 Est. Patient 09:34:30 ER PHYSICIAN Mitch luis [facility] CPT-43366 Level 3 Est. Patient 09:37:15 CDT Mitch luis [facility] CPT-23407 Level 3 Est. Patient 17:01:00 ER PHYSICIAN Mitch luis [facility] CPT-40752 Level 3 Est. Patient 13:53:19 ER PHYSICIAN Mitch luis [facility] CPT-99783 Level 3 Est. Patient 19:19:37 ER PHYSICIAN Mitch luis [facility] CPT-50644 Level 3 Est. Patient 13:25:53 ER PHYSICIAN [facility] CPT-23140 Level 3 Est. Patient 18:17:28 CDT Mitch luis [facility] CPT-83206 Level 3 Est. Patient 15:22:57 CDT Mitch luis [facility] CPT-46262 Level 3 Est. Patient 18:21:50 CDT Mitch luis [facility] CPT-20814 Level 3 Est. Patient 18:20:38 CDT Mitch luis [facility] CPT-80810 Level 3 Est. Patient 15:37:55 CDT Mitch luis [facility] CPT-14108 Level 2 Est. Patient 15:54:44 CDT Carmine benton MD [facility] CPT-10023 Level 3 Est. Patient 21:46:01 ER PHYSICIAN Mitch luis [facility] CPT-96474 Level 3 Est. Patient 22:15:50 CDT Mitch luis [facility] CPT-96270 Level 3 Est. Patient 10:48:15 CDT Mitch luis [facility] CPT-50623 Level 3 Est. Patient 23:20:57 CDT T[facility] toure [facility] CPT-02776 Level 3 Est. Patient 16:26:13 CDT Mitch Arnol luis [facility] Procedures Code Procedure Name Date Entry Date Standard Desc ription CPT-JTINJ Asp/Joint Injection 18:47:02 CDT CPT-67612 Venipuncture Draw Fee 09:26:17 CDT CPT-58948 PT/INR - LAB USE ONLY 13:32:49 ER PHYSICIAN CPT-85506 Venipuncture Draw Fee 13:32:49 ER PHYSICIAN CPT-91548 PT/INR - LAB USE ONLY 10:34:49 ER PHYSICIAN CPT-55733 Venipuncture Draw Fee 10:34:48 ER PHYSICIAN CPT-73592 PT/INR - LAB USE ONLY 09:22:03 ER PHYSICIAN CPT-58484 Venipuncture Draw Fee 09:22:02 ER PHYSICIAN CPT-18377 Hemoccult IFOBT - LAB USE ONLY 10:27:22 CDT CPT-17581 Venipuncture Draw Fee 08:27:08 CDT CPT-14417 Liver Profile - LAB USE ONLY 08:27:07 CDT 2 CPT-52340 Microalbumin - LAB USE ONLY 08:27:07 CDT 20 25/05/09 CPT-13659 PT/INR - LAB USE ONLY 08:27:07 CDT CPT-95835 HGBA1C - LAB USE ONLY 08:27:07 CDT CPT-79321 CBC - LAB USE ONLY 08:27:07 CDT CPT-32479 Venipuncture Draw Fee 11:09:14 CDT CPT-17168 Venipuncture Draw Fee 08:32:21 ER PHYSICIAN CPT-05857 Venipuncture Draw Fee 09:38:56 ER PHYSICIAN CPT-25963 No Charge Offi Visit 21:36:07 CDT 1 CPT-76097 Venipuncture Draw Fee 10:13:28 ER PHYSICIAN CPT-66932 Venipuncture Draw Fee 08:31:11 CDT CPT-19842 Aspir/Inject Med Joint 18:17:28 CDT CPT-46179 Venipuncture Draw Fee 10:13:30 CDT CPT-40303 Venipuncture Draw Fee 08:31:43 ER PHYSICIAN CPT-JTINJ Joint Injection 18:34:50 CDT CPT-31038 Knee 3V 12:25:09 CDT CPT-83310 Venipuncture Draw Fee 12:15:57 CDT CPT-060 Medical Surveillance Exam 21:31:43 CDT 2011 CPT-95795 Venipuncture Draw Fee 08:32:05 ER PHYSICIAN CPT-OV Office Visit 18:19:06 CDT
--- OUTSIDE RECORDS SUMMARY | 2020-01-18 12:00 | XMS REPORT | Clinical Summary ---
Author Author Admin, Mitch Leon Organization [facility] Address Unknown Phone Unavailable Allergies, Adverse Reactions, [...] Coronary atherosclerosis of unspecified type of vessel, robinson or graft EDEMA 782.3 Resolved Mitch Urbina [...] ORAL TABLET 1 po BID GLIMEPIRID E 14560134053 Active Renee Oconnor LPN Active KEFLEX 500 MG ORAL CAPSULE 1 po qid CEPHALEXI N 46041726587 No Longer Active Mitch Urbina DO Active LOSARTAN POTASSIUM 100 MG ORAL TABLET 1 pill by mouth daily, for blood pressure LOSARTAN POTASSIUM 44202868623 Active Ana Wallace Active AMLODIPINE BESYLATE 5 MG ORAL TABLET 1 tablet by mouth daily 201 01/20/04 AMLODIPINE BESYLATE 89860454871 No Longer Active Joe fulton APRN Active MITIGARE 0.6 MG ORAL CAPSULE 2 capsules at onset of go ut pain, then take one capsule at 1 hour if symptoms persist. COLCHICINE 59 317570856 Active Mitch Urbina DO Active COUMADIN 1 MG ORAL TABLET 2 tabs orally daily with the 5mg tab to equal 7mg daily WARFARIN SODIUM 54451976832 Active Ana Wallace Active COLCRYS 0.6 MG ORAL TABLET 1 tab qid prn gout C OLCHICINE 19994593470 Active Norma Cazares Active INVOKANA 100 MG ORAL TABLET 1 tablet orally daily CANAGLIFLOZIN 93329670765 Active Mitch Urbina DO Active MINOXIDIL 2.5 MG ORAL TABLET 1 tablet daily for high blood press ure MINOXIDIL 51420356644 Active Mitch Urbina DO Active MECLIZINE HCL 25 MG ORAL TABLET 1 po tid 3 days, then 1/2 ta b tid 3 days MECLIZINE HCL 86073846335 No Longer Active Corey SEGURA Active ALLOPURINOL 300 MG ORAL TABLET Take 1 tablet by mouth daily 2012 ALLOPURINOL 31735529292 No Longer Active Corey SEGURA Active CLONIDINE HCL 0.1 MG ORAL TABLET 1 po bid 7 days, then 1/2 t ab po bid 7 days CLONIDINE HCL 40098534069 No Longer Active Corey SEGURA Active COUMADIN 5 MG ORAL TABLET 1 tab PO daily WARFAR IN SODIUM 53755377571 Active Mitch Urbina DO Active COUMADIN 4 MG ORAL TABLET 1 tablet daily WARFAR IN SODIUM 48394331824 No Longer Active Corey SEGURA Active POLYTRIM 87803-7.1 UNIT/ML-% OPHTHALMIC SOLUTION 1 rui p in affected eye every 3 hours while awake x 7 days POLYMYXIN B-TRIMETHOP RIM 53377698959 No Longer Active Corey SEGURA Active LOSARTAN POTASSIUM-HCTZ 100-12.5 MG ORAL TABLET 1 by m outh daily for high blood pressure LOSARTAN POTASSIUM-HCTZ 18753863012 No Longer A ctive Mitch Urbina DO Active LISINOPRIL-HYDROCHLOROTHIAZIDE 20-12.5 MG ORAL TABLET 1 tab by m outh daily LISINOPRIL-HYDROCHLOROTHIAZIDE 88061970920 No Longer Active Mitch Urbina DO Active LISINOPRIL 20 MG ORAL TABLET 1 tab po at HS LIS INOPRIL 78703009748 No Longer Active Mitch Urbina DO Active COUMADIN 5 MG ORAL TABLET 1 by mouth every other day 2 WARFARIN SODIUM 15246384928 No Longer Active Mitch Urbina DO Active COUMADIN 6 MG ORAL TABLET 1 by mouth every other day 2 WARFARIN SODIUM 60146875652 No Longer Active Mitch Urbina DO Active SIMVASTATIN 40 MG ORAL TABLET 1 tab daily at bedtime SIMVASTATIN 06020393868 Active Mitch Urbina DO Active SIMVASTATIN 20 MG ORAL TABLET 1 tab daily at bedtime 2 SIMVASTATIN 70141968446 No Longer Active Mitch Urbina DO Active LOVENOX 100 MG/ML SUBCUTANEOUS SOLUTION One injection twice a da y ENOXAPARIN SODIUM 69877351554 No Longer Active Carmine Yusuf MD Active JANUVIA 50 MG ORAL TABLET Take one by mouth daily SITAGLIPTIN PHOSPHATE 29969351166 Active Mitch Urbina DO Active JANUVIA 100 MG ORAL TABLET 1/2 by mouth every day 2011 SITAGLIPTIN PHOSPHATE 02607129708 No Longer Active Bijal Segal RN Acti ve METFORMIN HCL 500 MG ORAL TABLET 2 by mouth twice daily METFORMIN HCL 20889686342 Active Mitch Urbina DO Active COLCRYS 0.6 MG ORAL TABLET 1 po q 6 hours prn gout pain COLCHICINE 53966389165 No Longer Active Camila Reese Active LISINOPRIL 5 MG ORAL TABLET 1 by mouth every day 11/17 LISINOPRIL 43886910721 No Longer Active Nguyen Ana Active KLOR-CON 20 MEQ ORAL PACKET Take one by mouth daily 09/10/08 POTASSIUM CHLORIDE 22436031942 No Longer Active Nguyen Coekman Active FUROSEMIDE 40 MG ORAL TABLET 1 by mouth daily F UROSEMIDE 09613750231 No Longer Active Nguyen Perez Active PROVIGIL 200 MG ORAL TABLET 1/2 tab po q day MODA FINIL 59580312264 Active Mitch Urbina DO Active PROVIGIL 100 MG ORAL TABLET Take one by mouth daily 08/20/04 MODAFINIL 79205919973 No Longer Active Mitch Urbina DO Active BACTRIM DS 800-160 MG ORAL TABLET 1 tab by mouth twice daily 201 10/19/09 TRIMETHOPRIM-SULFAMETHOXAZOLE 21062335014 No Longer Active Elian Hays MD Active FAMOTIDINE 20 MG ORAL TABLET by mouth twice a day FAMOTIDINE 70208546723 Active Mitch Urbina DO Active ADULT ASPIRIN LOW STRENGTH 81 MG ORAL TABLET DISINTEGR ATING 1 by mouth every daily ASPIRIN 97565067672 Active Mitch Urbina DO Ac tive METOPROLOL TARTRATE 50 MG ORAL TABLET 1 by mouth twice daily METOPROLOL TARTRATE 56228201797 Active Mitch Urbina DO Active BACTRIM DS 800-160 MG ORAL TABLET 1 tab by mouth twice daily 201 10/19/09 BACTRIM DS 800-160 MG ORAL TABLET 296749 TRIMETHOPRIM-SULFAMETHOXAZOLE Inactive PROVIGIL 100 MG ORAL TABLET Take one by mouth daily 08/20/04 PROVIGIL 100 MG ORAL TABLET 149467 MODAFINIL Inactive FUROSEMIDE 40 MG ORAL TABLET 1 by mouth daily FUROSEMIDE 40 MG ORAL TABLET 262548 FUROSEMIDE Inactive KLOR-CON 20 MEQ ORAL PACKET Take one by mouth daily 09/10/08 KLOR- CON 20 MEQ ORAL PACKET 1774466 POTASSIUM CHLORIDE Inactive LISINOPRIL 5 MG ORAL TABLET 1 by mouth every day 11/17 LISINOPRIL 5 MG ORAL TABLET 865258 LISINOPRIL Inactive COLCRYS 0.6 MG ORAL TABLET 1 po q 6 hours prn gout pain COLCRYS 0.6 MG ORAL TABLET 484856 COLCHICINE Inactive JANUVIA 100 MG ORAL TABLET 1/2 by mouth every day 2011 JANUVIA 100 MG ORAL TABLET SITAGLIPTIN PHOSPHATE Inactive SIMVASTATIN 20 MG ORAL TABLET 1 tab daily at bedtime 2 SIMVASTATIN 20 MG ORAL TABLET 468672 SIMVASTATIN Inactive COUMADIN 6 MG ORAL TABLET 1 by mouth every other day 2 COUMADIN 6 MG ORAL TABLET 765004 WARFARIN SODIUM Inactive COUMADIN 5 MG ORAL TABLET 1 by mouth every other day 2 COUMADIN 5 MG ORAL TABLET 258811 WARFARIN SODIUM Inactive LISINOPRIL 20 MG ORAL TABLET 1 tab po at HS LISINOPRIL 20 MG ORAL TABLET 784951 LISINOPRIL Inactive LISINOPRIL-HYDROCHLOROTHIAZIDE 20-12.5 MG ORAL TABLET 1 tab by m outh daily LISINOPRIL-HYDROCHLOROTHIAZIDE 20-12.5 MG ORAL TABLET 857687 LISINOPRIL-HYDROCHLOROTHIAZIDE Inactive POLYTRIM 54333-7.1 UNIT/ML-% OPHTHALMIC SOLUTION 1 rui p in affected eye every 3 hours while awake x 7 days POLYTRIM 1000 0-0.1 UNIT/ML-% OPHTHALMIC SOLUTION 902635 POLYMYXIN B-TRIMETHOPRIM Inactive COUMADIN 4 MG ORAL TABLET 1 tablet daily COUMADIN 4 MG ORAL TABLET 742024 WARFARIN SODIUM Inactive CLONIDINE HCL 0.1 MG ORAL TABLET 1 po bid 7 days, then 1/2 t ab po bid 7 days CLONIDINE HCL 0.1 MG ORAL TABLET 645590 CLONIDIN E HCL Inactive ALLOPURINOL 300 MG ORAL TABLET Take 1 tablet by mouth daily 2012 ALLOPURINOL 300 MG ORAL TABLET 799838 ALLOPURINOL I nactive MECLIZINE HCL 25 MG ORAL TABLET 1 po tid 3 days, then 1/2 ta b tid 3 days MECLIZINE HCL 25 MG ORAL TABLET 314460 MECLIZINE HCL Inactive AMLODIPINE BESYLATE 5 MG ORAL TABLET 1 tablet by mouth daily 201 01/20/04 AMLODIPINE BESYLATE 5 MG ORAL TABLET 774955 AMLODIPINE BESYLATE Inactive KEFLEX 500 MG ORAL CAPSULE 1 po qid K EFLEX 500 MG ORAL CAPSULE 903665 CEPHALEXIN Inactive LOVENOX 100 MG/ML SUBCUTANEOUS SOLUTION One injection twice a da y LOVENOX 100 MG/ML SUBCUTANEOUS SOLUTION 140664 ENOXAPAR IN SODIUM Inactive Vital Signs Date [...] - Chem istry sodium, serum 139 mmol/L 872-095 6418/07/17 potassium, serum 4.2 mmol/L 3.5-5.2 chloride, serum 102 mmol/L 98-107 carbon dioxide, venous blood 28.9 mmol/L 21.0-32 .0 blood glucose 211 mg/dL 65-110 calcium, serum 10.6 mg/dL 8.5-10.1 urea nitrogen, blood 29 mg/dL 7-18 creatinine, serum 1.24 mg/dL 0.60-1.30 sodium, serum 141 mmol/L 689-936 2488/08/07 potassium, serum 4.5 mmol/L 3.5-5.2 chloride, serum [...] ... - Chemistry sodium, serum 144 mmol/L 507-494 3625/06/12 carbon dioxide, venous blood 26.6 mmol/L 21.0-32 [...] HGBA1C - Chemistry cholesterol, serum 136 mg/dL 132-165 2992/12/06 triglyceride, serum, fasting 247 mg/dL 30-200 HDL cholesterol, serum 41 mg/dL 32-60 LDL cholesterol, serum 46 mg/dL 0-130 aspartate aminotransferase (SGOT), serum 22 U/L 15-37 alanine aminotransferase (SGPT), serum 30 U/L 12-78 bilirubin, serum, total 0.80 mg/dL 0.00-1.00 hemoglobin A1C, blood, as % of total hemoglobin 6.4 % 4.3-6.0 Encounters Code Encounter Date Provider Facility CPT-38618 Level 3 Est. Patient 18:25:53 CDT Mitch luis [facility] CPT-82771 Level 3 Est. Patient 19:43:34 CDT Mitch luis [facility] CPT-83917 Level 4 Est. Patient 09:30:18 CDT Mitch luis [facility] CPT-36505 Level 3 Est. Patient 15:10:14 CDT Joe kamara [facility] CPT-29112 Level 3 Est. Patient 15:03:46 CDT Joe kamara [facility] CPT-76078 Level 3 Est. Patient 14:21:06 CDT Mitch luis [facility] CPT-13755 Level 3 Est. Patient 14:52:06 CDT Joe kamara [facility] CPT-11069 Level 3 Est. Patient 09:34:30 DAIRY FARM OPERATOR Mitch luis [facility] CPT-03358 Level 3 Est. Patient 09:37:15 CDT Mitch luis [facility] CPT-19397 Level 3 Est. Patient 17:01:00 DAIRY FARM OPERATOR Mitch luis [facility] CPT-80858 Level 3 Est. Patient 13:53:19 DAIRY FARM OPERATOR Mitch luis [facility] CPT-14952 Level 3 Est. Patient 19:19:37 DAIRY FARM OPERATOR Mitch luis [facility] CPT-80804 Level 3 Est. Patient 13:25:53 DAIRY FARM OPERATOR Tavo toure MD [facility] CPT-59694 Level 3 Est. Patient 18:17:28 CDT Mitch luis [facility] CPT-80769 Level 3 Est. Patient 15:22:57 CDT Mitch luis [facility] CPT-28369 Level 3 Est. Patient 18:21:50 CDT Mitch W L janelle [facility] CPT-05703 Level 3 Est. Patient 18:20:38 CDT Mitch Ambrose L janelle [facility] CPT-81406 Level 3 Est. Patient 15:37:55 CDT Mitch luis [facility] CPT-81574 Level 2 Est. Patient 15:54:44 CDT Carmine benton MD [facility] CPT-10765 Level 3 Est. Patient 21:46:01 DAIRY FARM OPERATOR Mitch luis [facility] CPT-17252 Level 3 Est. Patient 22:15:50 CDT Mitch luis [facility] CPT-10745 Level 3 Est. Patient 10:48:15 CDT Mitch luis [facility] CPT-94091 Level 3 Est. Patient 23:20:57 CDT Tavo toure MD [facility] CPT-57053 Level 3 Est. Patient 16:26:13 CDT Mitch Arnol luis [facility] Procedures Code Procedure Name Date Entry Date Standard Desc ription CPT-38856 Venipuncture Draw Fee 09:26:17 CDT CPT-55310 PT/INR - LAB USE ONLY 13:32:49 DAIRY FARM OPERATOR CPT-63678 Venipuncture Draw Fee 13:32:49 DAIRY FARM OPERATOR CPT-39693 PT/INR - LAB USE ONLY 10:34:49 DAIRY FARM OPERATOR CPT-74702 Venipuncture Draw Fee 10:34:48 DAIRY FARM OPERATOR CPT-75681 PT/INR - LAB USE ONLY 09:22:03 DAIRY FARM OPERATOR CPT-61120 Venipuncture Draw Fee 09:22:02 DAIRY FARM OPERATOR CPT-50301 Hemoccult IFOBT - LAB USE ONLY 10:27:22 CDT CPT-62182 Venipuncture Draw Fee 08:27:08 CDT CPT-69026 Liver Profile - LAB USE ONLY 08:27:07 CDT 2 CPT-64161 Microalbumin - LAB USE ONLY 08:27:07 CDT 20 25/05/09 CPT-27533 PT/INR - LAB USE ONLY 08:27:07 CDT CPT-66840 HGBA1C - LAB USE ONLY 08:27:07 CDT CPT-14228 CBC - LAB USE ONLY 08:27:07 CDT CPT-18499 Venipuncture Draw Fee 11:09:14 CDT CPT-48954 Venipuncture Draw Fee 08:32:21 DAIRY FARM OPERATOR CPT-19630 Venipuncture Draw Fee 09:38:56 DAIRY FARM OPERATOR CPT-68483 No Charge Offi Visit 21:36:07 CDT 1 CPT-24464 Venipuncture Draw Fee 10:13:28 DAIRY FARM OPERATOR CPT-49392 Venipuncture Draw Fee 08:31:11 CDT CPT-58148 Aspir/Inject Med Joint 18:17:28 CDT CPT-00860 Venipuncture Draw Fee 10:13:30 CDT CPT-22823 Venipuncture Draw Fee 08:31:43 DAIRY FARM OPERATOR CPT-JTINJ Joint Injection 18:34:50 CDT CPT-31615 Knee 3V 12:25:09 CDT CPT-50770 Venipuncture Draw Fee 12:15:57 CDT CPT-060 Medical Surveillance Exam 21:31:43 CDT 2011 CPT-41084 Venipuncture Draw Fee 08:32:05 DAIRY FARM OPERATOR CPT-OV Office Visit 18:19:06 CDT
--- OUTSIDE RECORDS SUMMARY | 2020-01-18 12:00 | XMS REPORT | Clinical Summary ---
Author Author Admin, Mitch Leon Organization [facility] [employer] Address Unknown Phone Unavailable Allergies, Adverse [...] Coronary atherosclerosis of unspecified type of vessel, [place] or graft EDEMA 782.3 Resolved Mitch Urbina [...] daily for high b lood pressure MINOXIDIL 08184820661 Active Mitch Urbina DO Ac tive METFORMIN HCL ER 500 MG ORAL TABLET EXTENDED RELEASE 2 4 HOUR 2 tablets by mouth twice daily METFORMIN HCL 04027190483 Active Mitch Urbina DO Active GLIMEPIRIDE 4 MG ORAL TABLET 1 tablet by mouth twice daily f or diabetes GLIMEPIRIDE 79042731558 Active Mitch Urbina DO Active GLIMEPIRIDE 2 MG ORAL TABLET 1 po BID GLIMEPI RIDE 37683609243 No Longer Active Mitch Urbina DO Active AMLODIPINE BESYLATE 5 MG ORAL TABLET 1 tablet by mouth daily AMLODIPINE BESYLATE 25315523124 Active Mitch Urbina DO Active PROVIGIL 200 MG ORAL TABLET 1/2 tab po q day MODA FINIL 49026068303 Active Renee Oconnor LPN Active FAMOTIDINE 20 MG ORAL TABLET by mouth twice a day 2017 FAMOTIDINE 11621631306 No Longer Active Mitch Urbina DO Active COLCRYS 0.6 MG ORAL TABLET 1 tab qid prn gout C OLCHICINE 12665165614 No Longer Active Mitch Urbina DO Active KEFLEX 500 MG ORAL CAPSULE 1 po qid CEPHALEXI N 21928367164 No Longer Active Mitch Urbina DO Active LOSARTAN POTASSIUM 100 MG ORAL TABLET 1 pill by mouth daily, for blood pressure LOSARTAN POTASSIUM 04268181844 Active Ana Ocampo Active AMLODIPINE BESYLATE 5 MG ORAL TABLET 1 tablet by mouth daily 201 01/20/04 AMLODIPINE BESYLATE 54181129974 No Longer Active Joe fulton APRN Active MITIGARE 0.6 MG ORAL CAPSULE 2 capsules at onset of go ut pain, then take one capsule at 1 hour if symptoms persist. COLCHICINE 59 437406757 Active Mitch Urbina DO Active COUMADIN 1 MG ORAL TABLET 2 tabs orally daily with the 5mg tab to equal 7mg daily WARFARIN SODIUM 21375627861 Active Renee Oconnor LPN Active INVOKANA 100 MG ORAL TABLET 1 tablet orally daily CANAGLIFLOZIN 12128535860 Active Mitch Urbina DO Active MECLIZINE HCL 25 MG ORAL TABLET 1 po tid 3 days, then 1/2 ta b tid 3 days MECLIZINE HCL 54838536270 No Longer Active Corey SEGURA Active ALLOPURINOL 300 MG ORAL TABLET Take 1 tablet by mouth daily 2012 ALLOPURINOL 47003679655 No Longer Active Corey SEGURA Active CLONIDINE HCL 0.1 MG ORAL TABLET 1 po bid 7 days, then 1/2 t ab po bid 7 days CLONIDINE HCL 35237904259 No Longer Active Corey SEGURA Active COUMADIN 5 MG ORAL TABLET 1 tab PO daily WARFAR IN SODIUM 65566769950 Active Renee Oconnor LPN Active COUMADIN 4 MG ORAL TABLET 1 tablet daily WARFAR IN SODIUM 18179910120 No Longer Active Corey SEGURA Active POLYTRIM 60512-4.1 UNIT/ML-% OPHTHALMIC SOLUTION 1 rui p in affected eye every 3 hours while awake x 7 days POLYMYXIN B-TRIMETHOP RIM 13121561711 No Longer Active Corey SEGURA Active LOSARTAN POTASSIUM-HCTZ 100-12.5 MG ORAL TABLET 1 by m outh daily for high blood pressure LOSARTAN POTASSIUM-HCTZ 39441536511 No Longer A ctive Mitch Urbina DO Active LISINOPRIL-HYDROCHLOROTHIAZIDE 20-12.5 MG ORAL TABLET 1 tab by m outh daily LISINOPRIL-HYDROCHLOROTHIAZIDE 44811941005 No Longer Active Mitch Urbina DO Active LISINOPRIL 20 MG ORAL TABLET 1 tab po at HS LIS INOPRIL 87269957920 No Longer Active Mitch Urbina DO Active COUMADIN 5 MG ORAL TABLET 1 by mouth every other day 2 WARFARIN SODIUM 86062407791 No Longer Active Mitch Urbina DO Active COUMADIN 6 MG ORAL TABLET 1 by mouth every other day 2 WARFARIN SODIUM 64689709519 No Longer Active Mitch Urbina DO Active SIMVASTATIN 40 MG ORAL TABLET 1 tab daily at bedtime SIMVASTATIN 10333832144 Active Maria Rivas RN Active SIMVASTATIN 20 MG ORAL TABLET 1 tab daily at bedtime 2 SIMVASTATIN 22940247034 No Longer Active Mitch Urbina DO Active LOVENOX 100 MG/ML SUBCUTANEOUS SOLUTION One injection twice a da y ENOXAPARIN SODIUM 97581658594 No Longer Active Carmine Yusuf MD Active JANUVIA 50 MG ORAL TABLET Take one by mouth daily SITAGLIPTIN PHOSPHATE 52846747735 Active Renee Elvin DE LA ROSA Active JANUVIA 100 MG ORAL TABLET 1/2 by mouth every day 2011 SITAGLIPTIN PHOSPHATE 55856226528 No Longer Active Bijal Segal RN Acti ve METFORMIN HCL 500 MG ORAL TABLET 2 by mouth twice daily METFORMIN HCL 90529881799 No Longer Active Renee Oconnor LPN Active COLCRYS 0.6 MG ORAL TABLET 1 po q 6 hours prn gout pain COLCHICINE 40360814507 No Longer Active Camila Reese Active LISINOPRIL 5 MG ORAL TABLET 1 by mouth every day 11/17 LISINOPRIL 24329818865 No Longer Active Nguyen Perez Active KLOR-CON 20 MEQ ORAL PACKET Take one by mouth daily 09/10/08 POTASSIUM CHLORIDE 56716200886 No Longer Active Nguyen Perez Active FUROSEMIDE 40 MG ORAL TABLET 1 by mouth daily F UROSEMIDE 63830161822 No Longer Active Nguyen Perez Active PROVIGIL 100 MG ORAL TABLET Take one by mouth daily 08/20/04 MODAFINIL 53013969512 No Longer Active Mitch Urbina DO Active BACTRIM DS 800-160 MG ORAL TABLET 1 tab by mouth twice daily 201 10/19/09 TRIMETHOPRIM-SULFAMETHOXAZOLE 98993045399 No Longer Active Elian Hays MD Active ADULT ASPIRIN LOW STRENGTH 81 MG ORAL TABLET DISINTEGR ATING 1 by mouth every daily ASPIRIN 53724676316 Active Mitch Urbina DO Ac tive METOPROLOL TARTRATE 50 MG ORAL TABLET 1 by mouth twice daily METOPROLOL TARTRATE 22154333190 Active Maria Rivas RN Ac tive ALLOPURINOL 300 MG ORAL TABLET Take 1 tablet by mouth daily 2012 ALLOPURINOL 300 MG ORAL TABLET 444719 ALLOPURINOL I nactive BACTRIM DS 800-160 MG ORAL TABLET 1 tab by mouth twice daily 201 10/19/09 BACTRIM DS 800-160 MG ORAL TABLET 077584 TRIMETHOPRIM-SULFAMETHOXAZOLE Inactive CLONIDINE HCL 0.1 MG ORAL TABLET 1 po bid 7 days, then 1/2 t ab po bid 7 days CLONIDINE HCL 0.1 MG ORAL TABLET 451174 CLONIDIN E HCL Inactive COUMADIN 5 MG ORAL TABLET 1 by mouth every other day 2 COUMADIN 5 MG ORAL TABLET 222881 WARFARIN SODIUM Inactive FUROSEMIDE 40 MG ORAL TABLET 1 by mouth daily FUROSEMIDE 40 MG ORAL TABLET 866108 FUROSEMIDE Inactive KEFLEX 500 MG ORAL CAPSULE 1 po qid K EFLEX 500 MG ORAL CAPSULE 590924 CEPHALEXIN Inactive KLOR-CON 20 MEQ ORAL PACKET Take one by mouth daily 09/10/08 KLOR- CON 20 MEQ ORAL PACKET 7503239 POTASSIUM CHLORIDE Inactive LISINOPRIL 20 MG ORAL TABLET 1 tab po at HS LISINOPRIL 20 MG ORAL TABLET 542166 LISINOPRIL Inactive POLYTRIM 83364-3.1 UNIT/ML-% OPHTHALMIC SOLUTION 1 rui p in affected eye every 3 hours while awake x 7 days POLYTRIM 1000 0-0.1 UNIT/ML-% OPHTHALMIC SOLUTION 384070 POLYMYXIN B-TRIMETHOPRIM Inactive AMLODIPINE BESYLATE 5 MG ORAL TABLET 1 tablet by mouth daily 201 01/20/04 AMLODIPINE BESYLATE 5 MG ORAL TABLET 886086 AMLODIPINE BESYLATE Inactive FAMOTIDINE 20 MG ORAL TABLET by mouth twice a day 2017 FAMOTIDINE 20 MG ORAL TABLET 393414 FAMOTIDINE Inactive LISINOPRIL 5 MG ORAL TABLET 1 by mouth every day 11/17 LISINOPRIL 5 MG ORAL TABLET 728735 LISINOPRIL Inactive LISINOPRIL-HYDROCHLOROTHIAZIDE 20-12.5 MG ORAL TABLET 1 tab by m outh daily LISINOPRIL-HYDROCHLOROTHIAZIDE 20-12.5 MG ORAL TABLET 604283 LISINOPRIL-HYDROCHLOROTHIAZIDE Inactive SIMVASTATIN 20 MG ORAL TABLET 1 tab daily at bedtime 2 SIMVASTATIN 20 MG ORAL TABLET 374171 SIMVASTATIN Inactive COUMADIN 4 MG ORAL TABLET 1 tablet daily COUMADIN 4 MG ORAL TABLET 520847 WARFARIN SODIUM Inactive MECLIZINE HCL 25 MG ORAL TABLET 1 po tid 3 days, then 1/2 ta b tid 3 days MECLIZINE HCL 25 MG ORAL TABLET 484418 MECLIZINE HCL Inactive GLIMEPIRIDE 2 MG ORAL TABLET 1 po BID GLIMEPIRIDE 2 MG ORAL TABLET 020566 GLIMEPIRIDE Inactive COUMADIN 6 MG ORAL TABLET 1 by mouth every other day COUMADIN 6 MG ORAL TABLET 347267 WARFARIN SODIUM Inactive LOVENOX 100 MG/ML SUBCUTANEOUS SOLUTION One injection twice a da y LOVENOX 100 MG/ML SUBCUTANEOUS SOLUTION 224982 ENOXAPAR IN SODIUM Inactive PROVIGIL 100 MG ORAL TABLET Take one by mouth daily 08/20/04 PROVIGIL 100 MG ORAL TABLET 174387 MODAFINIL Inactive JANUVIA 100 MG ORAL TABLET 1/2 by mouth every day 2011 JANUVIA 100 MG ORAL TABLET SITAGLIPTIN PHOSPHATE Inactive COLCRYS 0.6 MG ORAL TABLET 1 po q 6 hours prn gout pain COLCRYS 0.6 MG ORAL TABLET 19750108 COLCHICINE Inactive COLCRYS 0.6 MG ORAL TABLET 1 tab qid prn gout COLCRYS 0.6 MG ORAL TABLET 19750108 COLCHICINE Inactive Advance Directives Directive Description Start Date [...] 11 .6-14.8 platelet count 256 10^3/MM^3 10*3/mm3 626-458 1731/06/29 leukocyte count, blood 6.4 10^3/MM^3 10*3/mm3 4.6-10.2 [...] mg/dL Encounters Code Encounter Date Provider Facility CPT-58965 [id number] Vst-Est Level IV 10:06:35 CDT Stephy Urbina [facility]-88371 [id number] Vst-Est Level IV 10:52:00 [employer] Stephy Urbina [facility] CPT-26455 Level 3 Est. Patient 18:25:53 CDT Mitch Castellano janelle [facility] CPT-18457 Level 3 Est. Patient 19:43:34 CDT Mitch luis [facility] CPT-51089 Level 4 Est. Patient 09:30:18 CDT Mitch luis [facility] CPT-34455 Level 3 Est. Patient 15:10:14 CDT Joe Jason kamara [facility] CPT-49969 Level 3 Est. Patient 15:03:46 CDT Joe Jason kamara [facility] CPT-66099 Level 3 Est. Patient 14:21:06 CDT Mitch luis [facility] CPT-89091 Level 3 Est. Patient 14:52:06 CDT Joe Jason kamara [facility] CPT-26431 Level 3 Est. Patient 09:34:30 [employer] Mitch luis [facility] CPT-22914 Level 3 Est. Patient 09:37:15 CDT Mitch luis [facility] CPT-83885 Level 3 Est. Patient 17:01:00 [employer] Mitch luis [facility] CPT-85561 Level 3 Est. Patient 13:53:19 [employer] Mitch luis [facility] CPT-88761 Level 3 Est. Patient 19:19:37 [employer] Mitch luis [facility] CPT-41784 Level 3 Est. Patient 13:25:53 [employer] Tavo toure MD [facility] CPT-23940 Level 3 Est. Patient 18:17:[address] [facility] CPT-96612 Level 3 Est. Patient 15:22:57 CDT Mitch luis [facility] CPT-80983 Level 3 Est. Patient 18:21:50 CDT Mitch luis [facility] CPT-04067 Level 3 Est. Patient 18:20:38 CDT Mitch luis [facility] CPT-09557 Level 3 Est. Patient 15:37:[address] [facility] CPT-20327 Level 2 Est. Patient 15:54:44 CDT Carmine benton MD [facility] CPT-37288 Level 3 Est. Patient 21:46:01 [employer] Mitch luis [facility] CPT-43368 Level 3 Est. Patient 22:15:[address] [facility] CPT-05389 Level 3 Est. Patient 10:48:[address] [facility] CPT-79098 Level 3 Est. Patient 23:20:57 CDT Tavo toure MD [facility] CPT-65719 Level 3 Est. Patient 16:26:13 CDT Mitch Arnol luis [facility] Procedures Code Procedure Name Date Entry Date Standard Desc ription CPT-JTINJ Asp/Joint Injection 18:47:02 CDT CPT-23696 Venipuncture Draw Fee 09:26:17 CDT CPT-04889 PT/INR - LAB USE ONLY 13:32:49 [employer] CPT-51856 Venipuncture Draw Fee 13:32:49 [employer] CPT-72852 PT/INR - LAB USE ONLY 10:34:49 [employer] CPT-32120 Venipuncture Draw Fee 10:34:48 [employer] CPT-98724 PT/INR - LAB USE ONLY 09:22:03 [employer] CPT-04744 Venipuncture Draw Fee 09:22:02 [employer] CPT-11454 Hemoccult IFOBT - LAB USE ONLY 10:27:22 CDT CPT-66048 Venipuncture Draw Fee 08:27:08 CDT CPT-34266 Liver Profile - LAB USE ONLY 08:27:07 CDT 2 CPT-07449 Microalbumin - LAB USE ONLY 08:27:07 CDT 20 25/05/09 CPT-65651 PT/INR - LAB USE ONLY 08:27:07 CDT CPT-57226 HGBA1C - LAB USE ONLY 08:27:07 CDT CPT-68122 CBC - LAB USE ONLY 08:27:07 CDT CPT-20954 Venipuncture Draw Fee 11:09:14 CDT CPT-27470 Venipuncture Draw Fee 08:32:21 [employer] CPT-41110 Venipuncture Draw Fee 09:38:56 [employer] CPT-25877 No Charge Offi Visit 21:36:07 CDT 1 CPT-90635 Venipuncture Draw Fee 10:13:28 [employer] CPT-29179 Venipuncture Draw Fee 08:31:11 CDT CPT-24771 Aspir/Inject Med Joint 18:17:28 CDT CPT-52783 Venipuncture Draw Fee 10:13:30 CDT CPT-40021 Venipuncture Draw Fee 08:31:43 [employer] CPT-JTINJ Joint Injection 18:34:50 CDT CPT-08081 Knee 3V 12:25:09 CDT CPT-68205 Venipuncture Draw Fee 12:15:57 CDT CPT-060 Medical Surveillance Exam 21:31:43 CDT 2011 CPT-89077 Venipuncture Draw Fee 08:32:05 [employer] CPT-OV Office Visit 18:19:06 CDT
--- OUTSIDE RECORDS SUMMARY | 2020-01-18 12:00 | XMS REPORT | Clinical Summary ---
Author Author Admin, Mitch Leon Organization [facility] [employer] Address Unknown Phone Unavailable Allergies, Adverse Reactions, [...] atherosclerosis of unspecified type of vessel, [place] or graft EDEMA 782.3 Resolved Mitch Urbina [...] Sebaceous cyst, infected 706.2 Resolved Mitch Anrol Urbina DO Sebaceous cyst Cellulitis 682.9 Resolved [...] tab to equal 7mg daily WARFARIN SODIUM 05400161294 Active Mitch Urbina DO Active COLCRYS 0.6 MG TABS 1 tab qid prn gout COLCHICINE 76068694685 Active Kathie Juan RPT,RMA Active INVOKANA 100 MG ORAL TABS 1 tablet orally daily CANAGLIFLOZIN 04842701981 Active Mitch Urbina DO Active MINOXIDIL 2.5 MG TABS 1 tablet daily for high blood pressure 10/23 MINOXIDIL 93416352908 Active Domi Rivera MA Active AMLODIPINE BESYLATE 5 MG TABS 1 tablet by mouth daily AMLODIPINE BESYLATE 83497642414 Active Mitch Urbina DO Active MECLIZINE HCL 25 MG TAB 1 po tid 3 days, then 1/2 tab tid 3 days MECLIZINE HCL 01612755939 No Longer Active Corey SEGURA Active ALLOPURINOL 300 MG TABS Take 1 tablet by mouth daily 2 ALLOPURINOL 82674912724 No Longer Active Corey SEGURA Activ e CLONIDINE HCL 0.1 MG TABS 1 po bid 7 days, then 1/2 tab po b id 7 days CLONIDINE HCL 46387077793 No Longer Active Corey SEGURA Active COUMADIN 5 MG TABS 1 tab PO daily WARFARIN SODIUM 60788066751 Active Mitch Urbina DO Active COUMADIN 4 MG TABS 1 tablet daily WARFARIN SODI UM 53018700149 No Longer Active Corey SEGURA Active POLYTRIM 47410-0.1 UNIT/ML-% SOLN 1 drop in affected e ye every 3 hours while awake x 7 days POLYMYXIN B-TRIMETHOPRIM 02197519901 N o Longer Active Corey SEGURA Active LOSARTAN POTASSIUM-HCTZ 100-12.5 MG TABS 1 by mouth da [place] for high blood pressure LOSARTAN POTASSIUM-HCTZ 09536339313 Active Stephy Urbina DO Active LISINOPRIL-HYDROCHLOROTHIAZIDE 20-12.5 MG TABS 1 tab by mouth da rocky LISINOPRIL-HYDROCHLOROTHIAZIDE 12738256152 No Longer Active Mitch luis DO Active LISINOPRIL 20 MG TABS 1 tab po at HS LISINOPRIL 45230616231 No Longer Active Mitch Urbina DO Active COUMADIN 5 MG TABS 1 by mouth every other day WARFARIN SODIUM 22426404874 No Longer Active Mitch Urbina DO Active COUMADIN 6 MG TABS 1 by mouth every other day WARFARIN SODIUM 03696797671 No Longer Active Mitch W [place] DO Active SIMVASTATIN 40 MG TABS 1 tab daily at bedtime S IMVASTATIN 15252836374 Active Mitch Urbina DO Active SIMVASTATIN 20 MG TABS 1 tab daily at bedtime S IMVASTATIN 67836895558 No Longer Active Mitch Urbina DO Active LOVENOX 100 MG/ML SC SOLN One injection twice a day 09/15/15 ENOXAPARIN SODIUM 83139435606 No Longer Active Carmine Navarrete ctive JANUVIA 50 MG TABS Take one by mouth daily DIEGO GLIPTIN PHOSPHATE 18595937899 Active Mitch Urbina DO Active JANUVIA 100 MG TABS 1/2 by mouth every day DIEGO GLIPTIN PHOSPHATE 56703962848 No Longer Active Bijal Segal RN Active METFORMIN HCL 500 MG TABS 2 by mouth twice daily METFORMIN HCL 27883775793 Active Mitch Urbina DO Active GLIMEPIRIDE 4 MG TABS 1 tab po bid GLIMEPIRIDE 645950 37303 Active Mitch Urbina DO Active COLCRYS 0.6 MG TABS 1 po q 6 hours prn gout pain 03/02 COLCHICINE 56038897355 No Longer Active Camila Reese Active LISINOPRIL 5 MG TABS 1 by mouth every day LISIN OPRIL 21254993080 No Longer Active Nguyen Perez Active KLOR-CON 20 MEQ PACK Take one by mouth daily 8 POTASSIUM CHLORIDE 39632582562 No Longer Active Nguyen Perez Active FUROSEMIDE 40 MG TABS 1 by mouth daily FUROSEMI DE 96639683481 No Longer Active Nguyenmolly Perez Active PROVIGIL 200 MG TABS 1/2 tab po q day MODAFINIL 90370 905779 Active Mitch Urbina DO Active PROVIGIL 100 MG TABS Take one by mouth daily MO DAFINIL 47572177319 No Longer Active Mitch Urbina DO Active BACTRIM DS 800-160 MG TAB 1 tab by mouth twice daily 2 TRIMETHOPRIM-SULFAMETHOXAZOLE 38754827902 No Longer Active Renan Hays MD Active FAMOTIDINE 20 MG TABS by mouth twice a day FAMOTI DINE 70409484963 Active Mitch Urbina DO Active ADULT ASPIRIN LOW STRENGTH 81 MG TBDP 1 by mouth every daily ASPIRIN 43104569711 Active Mitch Urbina DO Active METOPROLOL TARTRATE 50 MG TABS 1 by mouth twice daily METOPROLOL TARTRATE 08121015021 Active Mitch Urbina DO Active BACTRIM DS 800-160 MG TAB 1 tab by mouth twice daily 2 BACTRIM DS 800-160 MG TAB 243569 TRIMETHOPRIM-SULFAMETHOXAZOLE Inac tive PROVIGIL 100 MG TABS Take one by mouth daily 4 PROVIGIL 100 MG TABS 475559 MODAFINIL Inactive FUROSEMIDE 40 MG TABS 1 by mouth daily FU ROSEMIDE 40 MG TABS 843564 FUROSEMIDE Inactive KLOR-CON 20 MEQ PACK Take one by mouth daily 8 KLOR-CON 20 MEQ PACK 966692 POTASSIUM CHLORIDE Inactive LISINOPRIL 5 MG TABS 1 by mouth every day LISINOPRIL 5 MG TABS 198995 LISINOPRIL Inactive COLCRYS 0.6 MG TABS 1 po q 6 hours prn gout pain 03/02 COLCRYS 0.6 MG TABS 806625 COLCHICINE Inactive JANUVIA 100 MG TABS 1/2 by mouth every day JANUVI A 100 MG TABS SITAGLIPTIN PHOSPHATE Inactive SIMVASTATIN 20 MG TABS 1 tab daily at bedtime SIMVASTATIN 20 MG TABS 395316 SIMVASTATIN Inactive COUMADIN 6 MG TABS 1 by mouth every other day COUMADIN 6 MG TABS 038839 WARFARIN SODIUM Inactive COUMADIN 5 MG TABS 1 by mouth every other day COUMADIN 5 MG TABS 580482 WARFARIN SODIUM Inactive LISINOPRIL 20 MG TABS 1 tab po at HS KOKI NOPRIL 20 MG TABS 741069 LISINOPRIL Inactive LISINOPRIL-HYDROCHLOROTHIAZIDE 20-12.5 MG TABS 1 tab by mouth da rocky LISINOPRIL-HYDROCHLOROTHIAZIDE 20-12.5 MG TABS 124452 LISINOPRIL-HYDROCHLOROTHIAZIDE Inactive POLYTRIM 10926-8.1 UNIT/ML-% SOLN 1 drop in affected e ye every 3 hours while awake x 7 days POLYTRIM 28148-3.1 UNIT/ML-% SOLN 04491 7 POLYMYXIN B-TRIMETHOPRIM Inactive COUMADIN 4 MG TABS 1 tablet daily COUMADIN 4 MG TABS 319822 WARFARIN SODIUM Inactive CLONIDINE HCL 0.1 MG TABS 1 po bid 7 days, then 1/2 tab po b id 7 days CLONIDINE HCL 0.1 MG TABS 630140 CLONIDINE HCL I nactive ALLOPURINOL 300 MG TABS Take 1 tablet by mouth daily 2 ALLOPURINOL 300 MG TABS 702894 ALLOPURINOL Inactive MECLIZINE HCL 25 MG TAB 1 po tid 3 days, then 1/2 tab tid 3 days MECLIZINE HCL 25 MG TAB 581895 MECLIZINE HCL Inactive LOVENOX 100 MG/ML SC SOLN One injection twice a day 09/15/15 LOVENOX 100 MG/ML SC SOLN 764281 ENOXAPARIN SODIUM Inactive Vital Signs Date Name [...] - Chem istry sodium, serum 136 mmol/L 344-499 1907/01/14 carbon dioxide, venous blood 25.4 mmol/L 21.0-32 [...] CBC - Chemistry cholesterol, serum 136 mg/dL 816-049 0586/08/09 triglyceride, serum, fasting 187 mg/dL 30-200 HDL [...] 1.0-3.5 Encounters Code Encounter Date Provider Facility CPT-71610 Level 3 Est. Patient 14:21:06 CDT Mitch Ambrose L janelle [facility] CPT-13171 Level 3 Est. Patient 14:52:06 [facility] Est[facility] Patient 09:34:30 [employer] Mitch W L janelle [facility] CPT-68384 Level 3 Est. Patient 09:37:15 CDT Mitch W L ee [facility] CPT-23503 Level 3 Est. Patient 17:01:00 [employer] Mitch W L ee [facility] CPT-48250 Level 3 Est. Patient 13:53:19 [employer] Mitch W L janelle [facility] CPT-55504 Level 3 Est. Patient 19:19:37 [employer] Mitch W L janelle [facility] CPT-18047 Level 3 Est. Patient 13:25:53 [employer] Tavo toure MD [facility] CPT-87093 Level 3 Est. Patient 18:17:28 CDT Mitch W L ee [facility] CPT-60686 Level 3 Est. Patient 15:22:57 CDT Mitch W L janelle [facility] CPT-57775 Level 3 Est. Patient 18:21:50 CDT Mitch W L ee [facility] CPT-27150 Level 3 Est. Patient 18:20:38 CDT Mitch W L ee [facility] CPT-54777 Level 3 Est. Patient 15:37:55 CDT Mitch W L ee [facility] CPT-47704 Level 2 Est. Patient 15:54:44 CDT Carmine benton MD [facility]-32775 Level 3 Est. Patient 21:46:01 [employer] Mitch luis [facility] CPT-17710 Level 3 Est. Patient 22:15:50 CDT Mitch luis DO [facility] CPT-84442 Level 3 Est. Patient 10:48:15 CDT Mitch luis DO [facility] CPT-50233 Level 3 Est. Patient 23:20:57 CDT Tavo toure MD [facility] CPT-62221 Level 3 Est. Patient 16:26:13 CDT Mitch luis [facility] Procedures Code Procedure Name Date Entry Date Standard Desc ription CPT-62822 Hemoccult IFOBT - LAB USE ONLY 10:27:22 CDT CPT-76096 Venipuncture Draw Fee 08:27:08 CDT CPT-26425 Liver Profile - LAB USE ONLY 08:27:07 CDT 2 CPT-14687 Microalbumin - LAB USE ONLY 08:27:07 CDT 20 25/05/09 CPT-33989 PT/INR - LAB USE ONLY 08:27:07 CDT CPT-59534 HGBA1C - LAB USE ONLY 08:27:07 CDT CPT-60386 CBC - LAB USE ONLY 08:27:07 CDT CPT-77716 Venipuncture Draw Fee 11:09:14 CDT CPT-78588 Venipuncture Draw Fee 08:32:21 [employer] CPT-77502 Venipuncture Draw Fee 09:38:56 [employer] CPT-08836 No Charge Offi Visit 21:36:07 CDT 1 CPT-19324 Venipuncture Draw Fee 10:13:28 [employer] CPT-26248 Venipuncture Draw Fee 08:31:11 CDT CPT-14406 Aspir/Inject Med Joint 18:17:28 CDT CPT-07463 Venipuncture Draw Fee 10:13:30 CDT CPT-87951 Venipuncture Draw Fee 08:31:43 [employer] CPT-JTINJ Joint Injection 18:34:50 CDT CPT-16193 Knee 3V 12:25:09 CDT CPT-35327 Venipuncture Draw Fee 12:15:57 CDT CPT-060 Medical Surveillance Exam 21:31:43 CDT 2011 CPT-37210 Venipuncture Draw Fee 08:32:05 [employer] CPT-OV Office Visit 18:19:06 CDT
--- OUTSIDE RECORDS SUMMARY | 2020-01-18 12:01 | XMS REPORT | Clinical Summary ---
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 3 Active Mitch Arnol Carlitos DO Osteoarthrosis, unsp ecified whether generalized or localized, involving lower leg DIZZINESS 780.4 Resolved Mitch Arnol Carlitos DO Dizziness and giddiness CAROTID BRUIT, LEFT 785.9 Active Mitch W Carlitso DO Other symptoms involving cardiovascular system GOUT, [...] daily for high b lood pressure MINOXIDIL 25892506715 Active Mitch Urbina DO Ac tive METFORMIN HCL ER 500 MG ORAL TABLET EXTENDED RELEASE 2 4 HOUR 2 tablets by mouth twice daily METFORMIN HCL 66867670106 Active Mitch Urbina Active GLIMEPIRIDE 4 MG ORAL TABLET 1 tablet by mouth twice daily f or diabetes GLIMEPIRIDE 26823050490 Active Mitch Arnol Urbina Active GLIMEPIRIDE 2 MG ORAL TABLET 1 po BID GLIMEPI RIDE 52408824827 No Longer Active Mitch Urbina DO Active AMLODIPINE BESYLATE 5 MG ORAL TABLET 1 tablet by mouth daily AMLODIPINE BESYLATE 19019051092 Active Mitch Urbina DO Active PROVIGIL 200 MG ORAL TABLET 1/2 tab po q day MODA FINIL 35980583379 Active Renee Oconnor LPN Active FAMOTIDINE 20 MG ORAL TABLET by mouth twice a day 2017 FAMOTIDINE 48253832750 No Longer Active Mitch Urbina DO Active COLCRYS 0.6 MG ORAL TABLET 1 tab qid prn gout C OLCHICINE 33526124631 No Longer Active Mitch Urbina DO Active KEFLEX 500 MG ORAL CAPSULE 1 po qid CEPHALEXI N 72560398875 No Longer Active Mitch Urbina DO Active LOSARTAN POTASSIUM 100 MG ORAL TABLET 1 pill by mouth daily, for blood pressure LOSARTAN POTASSIUM 34165519503 Active Ana Ocampo Active AMLODIPINE BESYLATE 5 MG ORAL TABLET 1 tablet by mouth daily 201 01/20/04 AMLODIPINE BESYLATE 43366935949 No Longer Active 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 COLCHICINE 59 371408519 Active Mitch Urbina DO Active COUMADIN 1 MG ORAL TABLET 2 tabs orally daily with the 5mg tab to equal 7mg daily WARFARIN SODIUM 78813180903 Active Maria Briones Active INVOKANA 100 MG ORAL TABLET 1 tablet orally daily CANAGLIFLOZIN 67892490684 Active Mitch Urbina DO Active MECLIZINE HCL 25 MG ORAL TABLET 1 po tid 3 days, then 1/2 ta b tid 3 days MECLIZINE HCL 00353473956 No Longer Active Corey SEGURA Active ALLOPURINOL 300 MG ORAL TABLET Take 1 tablet by mouth daily 2012 ALLOPURINOL 24265112557 No Longer Active Corey SEGURA Active CLONIDINE HCL 0.1 MG ORAL TABLET 1 po bid 7 days, then 1/2 t ab po bid 7 days CLONIDINE HCL 84766651394 No Longer Active Corey SEGURA Active COUMADIN 5 MG ORAL TABLET 1 tab PO daily WARFAR IN SODIUM 38758544094 Active Renee Oconnor LPN Active COUMADIN 4 MG ORAL TABLET 1 tablet daily WARFAR IN SODIUM 06464216163 No Longer Active Corey SEGURA Active POLYTRIM 91012-2.1 UNIT/ML-% OPHTHALMIC SOLUTION 1 rui p in affected eye every 3 hours while awake x 7 days POLYMYXIN B-TRIMETHOP RIM 02702047320 No Longer Active Corey SEGURA Active LOSARTAN POTASSIUM-HCTZ 100-12.5 MG ORAL TABLET 1 by m outh daily for high blood pressure LOSARTAN POTASSIUM-HCTZ 64600500028 No Longer A ctive Mitch Urbina DO Active LISINOPRIL-HYDROCHLOROTHIAZIDE 20-12.5 MG ORAL TABLET 1 tab by m outh daily LISINOPRIL-HYDROCHLOROTHIAZIDE 00532067241 No Longer Active Mitch Urbina DO Active LISINOPRIL 20 MG ORAL TABLET 1 tab po at HS LIS INOPRIL 09764060168 No Longer Active Mitch Urbina DO Active COUMADIN 5 MG ORAL TABLET 1 by mouth every other day 2 WARFARIN SODIUM 50073932983 No Longer Active Mitch Urbina DO Active COUMADIN 6 MG ORAL TABLET 1 by mouth every other day 2 WARFARIN SODIUM 20664275410 No Longer Active Mitch Urbina DO Active SIMVASTATIN 40 MG ORAL TABLET 1 tab daily at bedtime SIMVASTATIN 16990273317 Active Maria Rivas RN Active SIMVASTATIN 20 MG ORAL TABLET 1 tab daily at bedtime 2 SIMVASTATIN 37288381578 No Longer Active Mitch Urbina DO Active LOVENOX 100 MG/ML SUBCUTANEOUS SOLUTION One injection twice a da y ENOXAPARIN SODIUM 70780184186 No Longer Active Carmine Yusuf MD Active JANUVIA 50 MG ORAL TABLET Take one by mouth daily SITAGLIPTIN PHOSPHATE 54680025565 Active Renee Elvin DE LA ROSA Active JANUVIA 100 MG ORAL TABLET 1/2 by mouth every day 2011 SITAGLIPTIN PHOSPHATE 67228881675 No Longer Active Bijal Segal RN Acti ve METFORMIN HCL 500 MG ORAL TABLET 2 by mouth twice daily METFORMIN HCL 35651294061 No Longer Active Renee Oconnor LPN Active COLCRYS 0.6 MG ORAL TABLET 1 po q 6 hours prn gout pain COLCHICINE 80119191354 No Longer Active Camila Reese Active LISINOPRIL 5 MG ORAL TABLET 1 by mouth every day 11/17 LISINOPRIL 34142045928 No Longer Active Nguyen Perez Active KLOR-CON 20 MEQ ORAL PACKET Take one by mouth daily 09/10/08 POTASSIUM CHLORIDE 86802465234 No Longer Active Nguyen Perez Active FUROSEMIDE 40 MG ORAL TABLET 1 by mouth daily F UROSEMIDE 77617892610 No Longer Active Nguyen Perez Active PROVIGIL 100 MG ORAL TABLET Take one by mouth daily 08/20/04 MODAFINIL 38375159216 No Longer Active Mitch Urbina DO Active BACTRIM DS 800-160 MG ORAL TABLET 1 tab by mouth twice daily 201 10/19/09 TRIMETHOPRIM-SULFAMETHOXAZOLE 25744162315 No Longer Active Elian Hays MD Active ADULT ASPIRIN LOW STRENGTH 81 MG ORAL TABLET DISINTEGR ATING 1 by mouth every daily ASPIRIN 05128926064 Active Mitch Urbina DO Ac tive METOPROLOL TARTRATE 50 MG ORAL TABLET 1 by mouth twice daily METOPROLOL TARTRATE 02391326979 Active Maria Rivas RN Ac tive BACTRIM DS 800-160 MG ORAL TABLET 1 tab by mouth twice daily 201 10/19/09 BACTRIM DS 800-160 MG ORAL TABLET 388415 TRIMETHOPRIM-SULFAMETHOXAZOLE Inactive PROVIGIL 100 MG ORAL TABLET Take one by mouth daily 08/20/04 PROVIGIL 100 MG ORAL TABLET 226168 MODAFINIL Inactive FUROSEMIDE 40 MG ORAL TABLET 1 by mouth daily FUROSEMIDE 40 MG ORAL TABLET 306869 FUROSEMIDE Inactive KLOR-CON 20 MEQ ORAL PACKET Take one by mouth daily 20 09/10/08 KLOR- CON 20 MEQ ORAL PACKET 7678917 POTASSIUM CHLORIDE Inactive LISINOPRIL 5 MG ORAL TABLET 1 by mouth every day 11/17 LISINOPRIL 5 MG ORAL TABLET 999417 LISINOPRIL Inactive COLCRYS 0.6 MG ORAL TABLET 1 po q 6 hours prn gout pain COLCRYS 0.6 MG ORAL TABLET 118281 COLCHICINE Inactive JANUVIA 100 MG ORAL TABLET 1/2 by mouth every day 2011 JANUVIA 100 MG ORAL TABLET SITAGLIPTIN PHOSPHATE Inactive SIMVASTATIN 20 MG ORAL TABLET 1 tab daily at bedtime 2 SIMVASTATIN 20 MG ORAL TABLET 559193 SIMVASTATIN Inactive COUMADIN 6 MG ORAL TABLET 1 by mouth every other day 2 COUMADIN 6 MG ORAL TABLET 734041 WARFARIN SODIUM Inactive COUMADIN 5 MG ORAL TABLET 1 by mouth every other day 2 COUMADIN 5 MG ORAL TABLET 654948 WARFARIN SODIUM Inactive LISINOPRIL 20 MG ORAL TABLET 1 tab po at HS LISINOPRIL 20 MG ORAL TABLET 868915 LISINOPRIL Inactive LISINOPRIL-HYDROCHLOROTHIAZIDE 20-12.5 MG ORAL TABLET 1 tab by m outh daily LISINOPRIL-HYDROCHLOROTHIAZIDE 20-12.5 MG ORAL TABLET 608824 LISINOPRIL-HYDROCHLOROTHIAZIDE Inactive POLYTRIM 57324-4.1 UNIT/ML-% OPHTHALMIC SOLUTION 1 rui p in affected eye every 3 hours while awake x 7 days POLYTRIM 1000 0-0.1 UNIT/ML-% OPHTHALMIC SOLUTION 529860 POLYMYXIN B-TRIMETHOPRIM Inactive COUMADIN 4 MG ORAL TABLET 1 tablet daily COUMADIN 4 MG ORAL TABLET 450249 WARFARIN SODIUM Inactive CLONIDINE HCL 0.1 MG ORAL TABLET 1 po bid 7 days, then 1/2 t ab po bid 7 days CLONIDINE HCL 0.1 MG ORAL TABLET 645916 CLONIDIN E HCL Inactive ALLOPURINOL 300 MG ORAL TABLET Take 1 tablet by mouth daily 2012 ALLOPURINOL 300 MG ORAL TABLET 879216 ALLOPURINOL I nactive MECLIZINE HCL 25 MG ORAL TABLET 1 po tid 3 days, then 1/2 ta b tid 3 days MECLIZINE HCL 25 MG ORAL TABLET 162118 MECLIZINE HCL Inactive AMLODIPINE BESYLATE 5 MG ORAL TABLET 1 tablet by mouth daily 201 01/20/04 AMLODIPINE BESYLATE 5 MG ORAL TABLET 167252 AMLODIPINE BESYLATE Inactive KEFLEX 500 MG ORAL CAPSULE 1 po qid K EFLEX 500 MG ORAL CAPSULE 544324 CEPHALEXIN Inactive COLCRYS 0.6 MG ORAL TABLET 1 tab qid prn gout COLCRYS 0.6 MG ORAL TABLET 747999 COLCHICINE Inactive FAMOTIDINE 20 MG ORAL TABLET by mouth twice a day 2017 FAMOTIDINE 20 MG ORAL TABLET 832345 FAMOTIDINE Inactive GLIMEPIRIDE 2 MG ORAL TABLET 1 po BID GLIMEPIRIDE 2 MG ORAL TABLET 440632 GLIMEPIRIDE Inactive LOVENOX 100 MG/ML SUBCUTANEOUS SOLUTION One injection twice a da y LOVENOX 100 MG/ML SUBCUTANEOUS SOLUTION 679626 ENOXAPAR IN SODIUM Inactive Advance Directives Directive [...] 11 .6-14.8 platelet count 238 10^3/MM^3 10*3/mm3 788-085 9049/03/29 leukocyte count, blood 6.7 10^3/MM^3 10*3/mm3 4.6-10.2 [...] mg/dL Encounters Code Encounter Date Provider Facility CPT-04231 [id number] Vst-Est Level IV 10:06:35 CDT Stephy Urbina [facility] CPT-00642 [id number] Vst-Est Level IV 10:52:00 DOOR CLAMPER Stephy Urbina [facility] CPT-52107 Level 3 Est. Patient 18:25:53 CDT Mitch Castellano janelle [facility] CPT-75135 Level 3 Est. Patient 19:43:34 CDT Mitch luis [facility] CPT-65332 Level 4 Est. Patient 09:30:18 CDT Mitch luis [facility] CPT-07735 Level 3 Est. Patient 15:10:14 CDT Joe Jason kamara [facility] CPT-30114 Level 3 Est. Patient 15:03:46 CDT Joe Jason kamara [facility] CPT-89340 Level 3 Est. Patient 14:21:06 CDT Mitch Castellano janelle [facility] CPT-59354 Level 3 Est. Patient 14:52:06 CDT Joe Jason kamara [facility] CPT-80991 Level 3 Est. Patient 09:34:30 DOOR CLAMPER Mitch luis [facility] CPT-17244 Level 3 Est. Patient 09:37:15 CDT Mitch luis [facility] CPT-22726 Level 3 Est. Patient 17:01:00 DOOR CLAMPER Mitch luis [facility] CPT-97739 Level 3 Est. Patient 13:53:19 DOOR CLAMPER Mitch luis [facility] CPT-57243 Level 3 Est. Patient 19:19:37 DOOR CLAMPER Mitch luis [facility] CPT-21217 Level 3 Est. Patient 13:25:53 DOOR CLAMPER Tavo toure MD [facility] CPT-72086 Level 3 Est. Patient 18:17:28 CDT Mitch luis [facility] CPT-52488 Level 3 Est. Patient 15:22:57 CDT Mitch luis [facility] CPT-66685 Level 3 Est. Patient 18:21:50 CDT Mitch luis [facility] CPT-84391 Level 3 Est. Patient 18:20:38 CDT Mitch luis [facility] CPT-74111 Level 3 Est. Patient 15:37:55 CDT Mitch luis [facility] CPT-58298 Level 2 Est. Patient 15:54:44 CDT Carmine benton MD [facility] CPT-72931 Level 3 Est. Patient 21:46:01 DOOR CLAMPER Mitch luis [facility] CPT-03693 Level 3 Est. Patient 22:15:50 CDT Mitch luis [facility] CPT-07403 Level 3 Est. Patient 10:48:15 CDT Mitch luis [facility] CPT-02662 Level 3 Est. Patient 23:20:57 CDT Tavo toure MD [facility] CPT-21333 Level 3 Est. Patient 16:26:13 CDT Mitch Arnol luis [facility] Procedures Code Procedure Name Date Entry Date Standard Desc ription CPT-JTINJ Asp/Joint Injection 18:47:02 CDT CPT-98496 Venipuncture Draw Fee 09:26:17 CDT CPT-01622 PT/INR - LAB USE ONLY 13:32:49 DOOR CLAMPER CPT-81791 Venipuncture Draw Fee 13:32:49 DOOR CLAMPER CPT-69591 PT/INR - LAB USE ONLY 10:34:49 DOOR CLAMPER CPT-70685 Venipuncture Draw Fee 10:34:48 DOOR CLAMPER CPT-16854 PT/INR - LAB USE ONLY 09:22:03 DOOR CLAMPER CPT-16672 Venipuncture Draw Fee 09:22:02 DOOR CLAMPER CPT-15408 Hemoccult IFOBT - LAB USE ONLY 10:27:22 CDT CPT-14606 Venipuncture Draw Fee 08:27:08 CDT CPT-20115 Liver Profile - LAB USE ONLY 08:27:07 CDT 2 CPT-87608 Microalbumin - LAB USE ONLY 08:27:07 CDT 20 25/05/09 CPT-85789 PT/INR - LAB USE ONLY 08:27:07 CDT CPT-69790 HGBA1C - LAB USE ONLY 08:27:07 CDT CPT-26531 CBC - LAB USE ONLY 08:27:07 CDT CPT-21631 Venipuncture Draw Fee 11:09:14 CDT CPT-47089 Venipuncture Draw Fee 08:32:21 DOOR CLAMPER CPT-70730 Venipuncture Draw Fee 09:38:56 DOOR CLAMPER CPT-37021 No Charge Offi Visit 21:36:07 CDT 1 CPT-95052 Venipuncture Draw Fee 10:13:28 DOOR CLAMPER CPT-02941 Venipuncture Draw Fee 08:31:11 CDT CPT-26004 Aspir/Inject Med Joint 18:17:28 CDT CPT-50910 Venipuncture Draw Fee 10:13:30 CDT CPT-29336 Venipuncture Draw Fee 08:31:43 DOOR CLAMPER CPT-JTINJ Joint Injection 18:34:50 CDT CPT-94898 Knee 3V 12:25:09 CDT CPT-64120 Venipuncture Draw Fee 12:15:57 CDT CPT-060 Medical Surveillance Exam 21:31:43 CDT 2011 CPT-02016 Venipuncture Draw Fee 08:32:05 DOOR CLAMPER CPT-OV Office Visit 18:19:06 CDT
--- OUTSIDE RECORDS SUMMARY | 2020-01-18 12:01 | XMS REPORT | Clinical Summary ---
Author Author Admin, Mitch Leon Organization [facility] Address Unknown Phone Unavailable Allergies, Adverse Reactions, [...] Coronary atherosclerosis of unspecified type of vessel, huslia or graft EDEMA 782.3 Resolved Mitch Urbina [...] daily for high b lood pressure MINOXIDIL 48804910770 Active Mitch Urbina DO Ac tive METFORMIN HCL ER 500 MG ORAL TABLET EXTENDED RELEASE 2 4 HOUR 2 tablets by mouth twice daily METFORMIN HCL 23731283846 Active Mitch Urbina DO Active GLIMEPIRIDE 4 MG ORAL TABLET 1 tablet by mouth twice daily f or diabetes GLIMEPIRIDE 24397955865 Active Mitch Urbina DO Active GLIMEPIRIDE 2 MG ORAL TABLET 1 po BID GLIMEPI RIDE 24621804283 No Longer Active Mitch Urbina DO Active AMLODIPINE BESYLATE 5 MG ORAL TABLET 1 tablet by mouth daily AMLODIPINE BESYLATE 39995261682 Active Mitch Urbina DO Active PROVIGIL 200 MG ORAL TABLET 1/2 tab po q day MODA FINIL 77087468018 Active Renee Oconnor LPN Active FAMOTIDINE 20 MG ORAL TABLET by mouth twice a day 2017 FAMOTIDINE 41531659040 No Longer Active Mitch Urbina DO Active COLCRYS 0.6 MG ORAL TABLET 1 tab qid prn gout C OLCHICINE 14705506643 No Longer Active Mitch Urbina DO Active KEFLEX 500 MG ORAL CAPSULE 1 po qid CEPHALEXI N 58192900108 No Longer Active Mitch Urbina DO Active LOSARTAN POTASSIUM 100 MG ORAL TABLET 1 pill by mouth daily, for blood pressure LOSARTAN POTASSIUM 12419477980 Active Ana Ocampo Active AMLODIPINE BESYLATE 5 MG ORAL TABLET 1 tablet by mouth daily 201 01/20/04 AMLODIPINE BESYLATE 21613816025 No Longer Active Jillina Fra donaldo [employer]ICIAN Active MITIGARE 0.6 MG ORAL CAPSULE 2 capsules at onset of go ut pain, then take one capsule at 1 hour if symptoms persist. COLCHICINE 59 136704554 Active Mitch Urbina DO Active COUMADIN 1 MG ORAL TABLET 2 tabs orally daily with the 5mg tab to equal 7mg daily WARFARIN SODIUM 86725795847 Active Maria Briones Active INVOKANA 100 MG ORAL TABLET 1 tablet orally daily CANAGLIFLOZIN 53596021082 Active Mitch Urbina DO Active MECLIZINE HCL 25 MG ORAL TABLET 1 po tid 3 days, then 1/2 ta b tid 3 days MECLIZINE HCL 01643013729 No Longer Active Corey SEGURA Active ALLOPURINOL 300 MG ORAL TABLET Take 1 tablet by mouth daily 2012 ALLOPURINOL 42825207687 No Longer Active Corey SEGURA Active CLONIDINE HCL 0.1 MG ORAL TABLET 1 po bid 7 days, then 1/2 t ab po bid 7 days CLONIDINE HCL 94273420151 No Longer Active Corey SEGURA Active COUMADIN 5 MG ORAL TABLET 1 tab PO daily WARFAR IN SODIUM 97426014009 Active Renee Oconnor LPN Active COUMADIN 4 MG ORAL TABLET 1 tablet daily WARFAR IN SODIUM 51535473237 No Longer Active Corey SEGURA Active POLYTRIM 84467-0.1 UNIT/ML-% OPHTHALMIC SOLUTION 1 rui p in affected eye every 3 hours while awake x 7 days POLYMYXIN B-TRIMETHOP RIM 00458894444 No Longer Active Corey SEGURA Active LOSARTAN POTASSIUM-HCTZ 100-12.5 MG ORAL TABLET 1 by m outh daily for high blood pressure LOSARTAN POTASSIUM-HCTZ 37874471418 No Longer A ctive Mitch Urbina DO Active LISINOPRIL-HYDROCHLOROTHIAZIDE 20-12.5 MG ORAL TABLET 1 tab by m outh daily LISINOPRIL-HYDROCHLOROTHIAZIDE 97250366150 No Longer Active Mitch Urbina DO Active LISINOPRIL 20 MG ORAL TABLET 1 tab po at HS LIS INOPRIL 10750649006 No Longer Active Mitch Urbina DO Active COUMADIN 5 MG ORAL TABLET 1 by mouth every other day 2 WARFARIN SODIUM 03684120565 No Longer Active Mitch Urbina DO Active COUMADIN 6 MG ORAL TABLET 1 by mouth every other day 2 WARFARIN SODIUM 37628731872 No Longer Active Mitch Urbina DO Active SIMVASTATIN 40 MG ORAL TABLET 1 tab daily at bedtime SIMVASTATIN 36340336784 Active Maria Rivas RN Active SIMVASTATIN 20 MG ORAL TABLET 1 tab daily at bedtime 2 SIMVASTATIN 88936762140 No Longer Active Mitch Urbina DO Active LOVENOX 100 MG/ML SUBCUTANEOUS SOLUTION One injection twice a da y ENOXAPARIN SODIUM 33206721853 No Longer Active Carmine Yusuf MD Active JANUVIA 50 MG ORAL TABLET Take one by mouth daily SITAGLIPTIN PHOSPHATE 23684199347 Active Renee Elvin DE LA ROSA Active JANUVIA 100 MG ORAL TABLET 1/2 by mouth every day 2011 SITAGLIPTIN PHOSPHATE 53613960453 No Longer Active Bijal Segal RN Acti ve METFORMIN HCL 500 MG ORAL TABLET 2 by mouth twice daily METFORMIN HCL 49259213115 No Longer Active Renee Oconnor LPN Active COLCRYS 0.6 MG ORAL TABLET 1 po q 6 hours prn gout pain COLCHICINE 91772608693 No Longer Active Camila Reese Active LISINOPRIL 5 MG ORAL TABLET 1 by mouth every day 11/17 LISINOPRIL 81157607527 No Longer Active Nguyen Perez Active KLOR-CON 20 MEQ ORAL PACKET Take one by mouth daily 09/10/08 POTASSIUM CHLORIDE 94869089750 No Longer Active Nguyen Perez Active FUROSEMIDE 40 MG ORAL TABLET 1 by mouth daily F UROSEMIDE 82481944059 No Longer Active Nguyen Perez Active PROVIGIL 100 MG ORAL TABLET Take one by mouth daily 08/20/04 MODAFINIL 04524513601 No Longer Active Mitch Urbina DO Active BACTRIM DS 800-160 MG ORAL TABLET 1 tab by mouth twice daily 201 10/19/09 TRIMETHOPRIM-SULFAMETHOXAZOLE 50239865934 No Longer Active Elian Hays MD Active ADULT ASPIRIN LOW STRENGTH 81 MG ORAL TABLET DISINTEGR ATING 1 by mouth every daily ASPIRIN 18111106681 Active Mitch Urbina DO Ac tive METOPROLOL TARTRATE 50 MG ORAL TABLET 1 by mouth twice daily METOPROLOL TARTRATE 37123778553 Active Maria Rivas RN Ac tive BACTRIM DS 800-160 MG ORAL TABLET 1 tab by mouth twice daily 201 10/19/09 BACTRIM DS 800-160 MG ORAL TABLET 433887 TRIMETHOPRIM-SULFAMETHOXAZOLE Inactive PROVIGIL 100 MG ORAL TABLET Take one by mouth daily 08/20/04 PROVIGIL 100 MG ORAL TABLET 296239 MODAFINIL Inactive FUROSEMIDE 40 MG ORAL TABLET 1 by mouth daily FUROSEMIDE 40 MG ORAL TABLET 153108 FUROSEMIDE Inactive KLOR-CON 20 MEQ ORAL PACKET Take one by mouth daily 20 09/10/08 KLOR- CON 20 MEQ ORAL PACKET 2051150 POTASSIUM CHLORIDE Inactive LISINOPRIL 5 MG ORAL TABLET 1 by mouth every day 11/17 LISINOPRIL 5 MG ORAL TABLET 091567 LISINOPRIL Inactive COLCRYS 0.6 MG ORAL TABLET 1 po q 6 hours prn gout pain COLCRYS 0.6 MG ORAL TABLET 835482 COLCHICINE Inactive JANUVIA 100 MG ORAL TABLET 1/2 by mouth every day 2011 JANUVIA 100 MG ORAL TABLET SITAGLIPTIN PHOSPHATE Inactive SIMVASTATIN 20 MG ORAL TABLET 1 tab daily at bedtime 2 SIMVASTATIN 20 MG ORAL TABLET 094204 SIMVASTATIN Inactive COUMADIN 6 MG ORAL TABLET 1 by mouth every other day 2 COUMADIN 6 MG ORAL TABLET 057162 WARFARIN SODIUM Inactive COUMADIN 5 MG ORAL TABLET 1 by mouth every other day 2 COUMADIN 5 MG ORAL TABLET 566154 WARFARIN SODIUM Inactive LISINOPRIL 20 MG ORAL TABLET 1 tab po at HS LISINOPRIL 20 MG ORAL TABLET 305063 LISINOPRIL Inactive LISINOPRIL-HYDROCHLOROTHIAZIDE 20-12.5 MG ORAL TABLET 1 tab by m outh daily LISINOPRIL-HYDROCHLOROTHIAZIDE 20-12.5 MG ORAL TABLET 644573 LISINOPRIL-HYDROCHLOROTHIAZIDE Inactive POLYTRIM 05350-8.1 UNIT/ML-% OPHTHALMIC SOLUTION 1 rui p in affected eye every 3 hours while awake x 7 days POLYTRIM 1000 0-0.1 UNIT/ML-% OPHTHALMIC SOLUTION 088381 POLYMYXIN B-TRIMETHOPRIM Inactive COUMADIN 4 MG ORAL TABLET 1 tablet daily COUMADIN 4 MG ORAL TABLET 887336 WARFARIN SODIUM Inactive CLONIDINE HCL 0.1 MG ORAL TABLET 1 po bid 7 days, then 1/2 t ab po bid 7 days CLONIDINE HCL 0.1 MG ORAL TABLET 024760 CLONIDIN E HCL Inactive ALLOPURINOL 300 MG ORAL TABLET Take 1 tablet by mouth daily 2012 ALLOPURINOL 300 MG ORAL TABLET 918348 ALLOPURINOL I nactive MECLIZINE HCL 25 MG ORAL TABLET 1 po tid 3 days, then 1/2 ta b tid 3 days MECLIZINE HCL 25 MG ORAL TABLET 786332 MECLIZINE HCL Inactive AMLODIPINE BESYLATE 5 MG ORAL TABLET 1 tablet by mouth daily 201 01/20/04 AMLODIPINE BESYLATE 5 MG ORAL TABLET 595783 AMLODIPINE BESYLATE Inactive KEFLEX 500 MG ORAL CAPSULE 1 po qid K EFLEX 500 MG ORAL CAPSULE 070073 CEPHALEXIN Inactive COLCRYS 0.6 MG ORAL TABLET 1 tab qid prn gout COLCRYS 0.6 MG ORAL TABLET 033010 COLCHICINE Inactive FAMOTIDINE 20 MG ORAL TABLET by mouth twice a day 2017 FAMOTIDINE 20 MG ORAL TABLET 830189 FAMOTIDINE Inactive GLIMEPIRIDE 2 MG ORAL TABLET 1 po BID GLIMEPIRIDE 2 MG ORAL TABLET 140753 GLIMEPIRIDE Inactive LOVENOX 100 MG/ML SUBCUTANEOUS SOLUTION One injection twice a da y LOVENOX 100 MG/ML SUBCUTANEOUS SOLUTION 752602 ENOXAPAR IN SODIUM Inactive Advance Directives Directive [...] 11 .6-14.8 platelet count 256 10^3/MM^3 10*3/mm3 224-771 1965/06/29 leukocyte count, blood 6.4 10^3/MM^3 10*3/mm3 4.6-10.2 [...] mg/dL Encounters Code Encounter Date Provider Facility CPT-23202 25540-Fyw Vst-Est Level IV 10:06:35 CDT Stephy Urbian [facility] CPT-56752 53253-Pcp Vst-Est Level IV 10:52:00 [employer]ARM DEMONSTRATOR Stephy Urbina [facility] CPT-01300 Level 3 Est. Patient 18:25:53 CDT Mitch Castellano janelle [facility] CPT-15439 Level 3 Est. Patient 19:43:34 CDT Mitch luis [facility] CPT-70394 Level 4 Est. Patient 09:30:18 CDT Mitch luis [facility] CPT-18603 Level 3 Est. Patient 15:10:14 CDT Joe Jason kamara [facility] CPT-92592 Level 3 Est. Patient 15:03:46 CDT Joe Jason kamara [facility] CPT-98399 Level 3 Est. Patient 14:21:06 CDT Mitch Castellano janelle [facility] CPT-11508 Level 3 Est. Patient 14:52:06 CDT Joe Jason kamara [facility] CPT-94251 Level 3 Est. Patient 09:34:30 FARM DEMONSTRATOR Mitch luis [facility] CPT-25648 Level 3 Est. Patient 09:37:15 CDT Mitch luis [facility] CPT-50069 Level 3 Est. Patient 17:01:00 FARM DEMONSTRATOR Mitch luis [facility] CPT-64527 Level 3 Est. Patient 13:53:19 FARM DEMONSTRATOR Mitch luis [facility] CPT-89371 Level 3 Est. Patient 19:19:37 FARM DEMONSTRATOR Mitch luis [facility] CPT-16654 Level 3 Est. Patient 13:25:53 FARM DEMONSTRATOR Tavo toure MD [facility] CPT-82657 Level 3 Est. Patient 18:17:28 CDT Mitch luis [facility] CPT-38083 Level 3 Est. Patient 15:22:57 CDT Mitch luis [facility] CPT-19135 Level 3 Est. Patient 18:21:50 CDT Mitch luis [facility] CPT-40648 Level 3 Est. Patient 18:20:38 CDT Mitch luis [facility] CPT-17164 Level 3 Est. Patient 15:37:55 CDT Mitch luis [facility] CPT-63138 Level 2 Est. Patient 15:54:44 CDT Carmine benton MD [facility] CPT-24423 Level 3 Est. Patient 21:46:01 FARM DEMONSTRATOR Mitch luis [facility] CPT-23713 Level 3 Est. Patient 22:15:50 CDT Mitch luis [facility] CPT-09637 Level 3 Est. Patient 10:48:15 CDT Mitch luis [facility] CPT-68029 Level 3 Est. Patient 23:20:57 CDT Tavo toure MD [facility] CPT-54165 Level 3 Est. Patient 16:26:13 CDT Mitch Arnol luis [facility] Procedures Code Procedure Name Date Entry Date Standard Desc ription CPT-JTINJ Asp/Joint Injection 18:47:02 CDT CPT-92037 Venipuncture Draw Fee 09:26:17 CDT CPT-66152 PT/INR - LAB USE ONLY 13:32:49 [employer]ARM DEMON[employer]ATOR CPT-84644 Venipuncture Draw Fee 13:32:49 FARM DEMONSTRATOR CPT-53634 PT/INR - LAB USE ONLY 10:34:49 FARM DEMONSTRATOR CPT-85846 Venipuncture Draw Fee 10:34:48 FARM DEMONSTRATOR CPT-93413 PT/INR - LAB USE ONLY 09:22:03 FARM DEMONSTRATOR CPT-60758 Venipuncture Draw Fee 09:22:02 FARM DEMONSTRATOR CPT-72051 Hemoccult IFOBT - LAB USE ONLY 10:27:22 CDT CPT-09419 Venipuncture Draw Fee 08:27:08 CDT CPT-10879 Liver Profile - LAB USE ONLY 08:27:07 CDT 2 CPT-34799 Microalbumin - LAB USE ONLY 08:27:07 CDT 20 25/05/09 CPT-79077 PT/INR - LAB USE ONLY 08:27:07 CDT CPT-41136 HGBA1C - LAB USE ONLY 08:27:07 CDT CPT-96423 CBC - LAB USE ONLY 08:27:07 CDT CPT-46811 Venipuncture Draw Fee 11:09:14 CDT CPT-84058 Venipuncture Draw Fee 08:32:21 FARM DEMONSTRATOR CPT-71844 Venipuncture Draw Fee 09:38:56 FARM DEMONSTRATOR CPT-24761 No Charge Offi Visit 21:36:07 CDT 1 CPT-23061 Venipuncture Draw Fee 10:13:28 FARM DEMONSTRATOR CPT-57301 Venipuncture Draw Fee 08:31:11 CDT CPT-16974 Aspir/Inject Med Joint 18:17:28 CDT CPT-25421 Venipuncture Draw Fee 10:13:30 CDT CPT-44624 Venipuncture Draw Fee 08:31:43 FARM DEMONSTRATOR CPT-JTINJ Joint Injection 18:34:50 CDT CPT-41029 Knee 3V 12:25:09 CDT CPT-38284 Venipuncture Draw Fee 12:15:57 CDT CPT-060 Medical Surveillance Exam 21:31:43 CDT 2011 CPT-43945 Venipuncture Draw Fee 08:32:05 FARM DEMONSTRATOR CPT-OV Office Visit 18:19:06 CDT
--- OUTSIDE RECORDS SUMMARY | 2020-01-18 12:01 | XMS REPORT | Clinical Summary ---
Author Author Admin, Mitch Leon Organization [facility] [employer] Address Unknown Phone Unavailable Allergies, Adverse Reactions, Alerts Allergy Name Reaction Description Start Date Severity Status Pr ovider PENICILLIN HIVES Critical Active Micth Urbina DO Conditions or Problems Problem Name [...] Coronary atherosclerosis of unspecified type of vessel, circle or graft EDEMA 782.3 Resolved Mitch Urbina [...] bursitis UNSPECIFIED ANEMIA 285.9 Resolved Mitch W Cariltos DO Anemia, unspecified Malaise and fatigue 780.79 [...] extremity edema, left 782.3 Active Mitch W Cralitos DO Edema Degenerative joint disease, knee, right [...] daily for high b lood pressure MINOXIDIL 12989968958 Active Mitch Urbina DO Ac tive METFORMIN HCL ER 500 MG ORAL TABLET EXTENDED RELEASE 2 4 HOUR 2 tablets by mouth twice daily METFORMIN HCL 90188975068 Active Mitch Urbina DO Active GLIMEPIRIDE 4 MG ORAL TABLET 1 tablet by mouth twice daily f or diabetes GLIMEPIRIDE 44464781106 Active Mitch Urbina DO Active GLIMEPIRIDE 2 MG ORAL TABLET 1 po BID GLIMEPI RIDE 64548279276 No Longer Active Mitch Urbina DO Active AMLODIPINE BESYLATE 5 MG ORAL TABLET 1 tablet by mouth daily AMLODIPINE BESYLATE 18486255160 Active Mitch Urbina DO Active PROVIGIL 200 MG ORAL TABLET 1/2 tab po q day MODA FINIL 81846733522 Active Renee Oconnor LPN Active FAMOTIDINE 20 MG ORAL TABLET by mouth twice a day 2017 FAMOTIDINE 66901136001 No Longer Active Mitch Urbina DO Active COLCRYS 0.6 MG ORAL TABLET 1 tab qid prn gout C OLCHICINE 87119136115 No Longer Active Mitch Urbina DO Active KEFLEX 500 MG ORAL CAPSULE 1 po qid CEPHALEXI N 43644746406 No Longer Active Mitch Urbina DO Active LOSARTAN POTASSIUM 100 MG ORAL TABLET 1 pill by mouth daily, for blood pressure LOSARTAN POTASSIUM 59930785975 Active Ana Ocampo Active AMLODIPINE BESYLATE 5 MG ORAL TABLET 1 tablet by mouth daily 201 01/20/04 AMLODIPINE BESYLATE 06757951889 No Longer Active Joe fulton APRN Active MITIGARE 0.6 MG ORAL CAPSULE 2 capsules at onset of go ut pain, then take one capsule at 1 hour if symptoms persist. COLCHICINE 59 908258188 Active Mitch Urbina DO Active COUMADIN 1 MG ORAL TABLET 2 tabs orally daily with the 5mg tab to equal 7mg daily WARFARIN SODIUM 83279509747 Active Maria Briones Active INVOKANA 100 MG ORAL TABLET 1 tablet orally daily CANAGLIFLOZIN 09397789805 Active Mitch Urbina DO Active MECLIZINE HCL 25 MG ORAL TABLET 1 po tid 3 days, then 1/2 ta b tid 3 days MECLIZINE HCL 29098752208 No Longer Active Corey SEGURA Active ALLOPURINOL 300 MG ORAL TABLET Take 1 tablet by mouth daily 2012 ALLOPURINOL 59490727552 No Longer Active Corey SEGURA Active CLONIDINE HCL 0.1 MG ORAL TABLET 1 po bid 7 days, then 1/2 t ab po bid 7 days CLONIDINE HCL 17512402395 No Longer Active Corey SEGURA Active COUMADIN 5 MG ORAL TABLET 1 tab PO daily WARFAR IN SODIUM 44514700371 Active Renee Oconnor LPN Active COUMADIN 4 MG ORAL TABLET 1 tablet daily WARFAR IN SODIUM 25506783543 No Longer Active Corey SEGURA Active POLYTRIM 36547-2.1 UNIT/ML-% OPHTHALMIC SOLUTION 1 rui p in affected eye every 3 hours while awake x 7 days POLYMYXIN B-TRIMETHOP RIM 31830784635 No Longer Active Corey SEGURA Active LOSARTAN POTASSIUM-HCTZ 100-12.5 MG ORAL TABLET 1 by m outh daily for high blood pressure LOSARTAN POTASSIUM-HCTZ 12531664712 No Longer A ctive Mitch Urbina DO Active LISINOPRIL-HYDROCHLOROTHIAZIDE 20-12.5 MG ORAL TABLET 1 tab by m outh daily LISINOPRIL-HYDROCHLOROTHIAZIDE 63166444970 No Longer Active Mitch Urbina DO Active LISINOPRIL 20 MG ORAL TABLET 1 tab po at HS LIS INOPRIL 85609459678 No Longer Active Mitch Urbina DO Active COUMADIN 5 MG ORAL TABLET 1 by mouth every other day 2 WARFARIN SODIUM 84510524786 No Longer Active Mitch Urbina DO Active COUMADIN 6 MG ORAL TABLET 1 by mouth every other day 2 WARFARIN SODIUM 78439775702 No Longer Active Mitch Urbina DO Active SIMVASTATIN 40 MG ORAL TABLET 1 tab daily at bedtime SIMVASTATIN 93051309457 Active Maria Rivas RN Active SIMVASTATIN 20 MG ORAL TABLET 1 tab daily at bedtime 2 SIMVASTATIN 17866943886 No Longer Active Mitch Urbina DO Active LOVENOX 100 MG/ML SUBCUTANEOUS SOLUTION One injection twice a da y ENOXAPARIN SODIUM 40962636583 No Longer Active Carmine Yusuf MD Active JANUVIA 50 MG ORAL TABLET Take one by mouth daily SITAGLIPTIN PHOSPHATE 07661031916 Active Renee Elvin DE LA ROSA Active JANUVIA 100 MG ORAL TABLET 1/2 by mouth every day 2011 SITAGLIPTIN PHOSPHATE 33100144134 No Longer Active Bijal Segal RN Acti ve METFORMIN HCL 500 MG ORAL TABLET 2 by mouth twice daily METFORMIN HCL 94095983663 No Longer Active Renee Oconnor LPN Active COLCRYS 0.6 MG ORAL TABLET 1 po q 6 hours prn gout pain COLCHICINE 52787271962 No Longer Active Camila Reese Active LISINOPRIL 5 MG ORAL TABLET 1 by mouth every day 11/17 LISINOPRIL 61207004268 No Longer Active Nguyen Perez Active KLOR-CON 20 MEQ ORAL PACKET Take one by mouth daily 09/10/08 POTASSIUM CHLORIDE 83925919574 No Longer Active Nguyen Perez Active FUROSEMIDE 40 MG ORAL TABLET 1 by mouth daily F UROSEMIDE 98801769933 No Longer Active Nguyen Perez Active PROVIGIL 100 MG ORAL TABLET Take one by mouth daily 08/20/04 MODAFINIL 23096344630 No Longer Active Mitch W Carlitos DO Active BACTRIM DS 800-160 MG ORAL TABLET 1 tab by mouth twice daily 201 10/19/09 TRIMETHOPRIM-SULFAMETHOXAZOLE 93503289233 No Longer Active Elian Hays MD Active ADULT ASPIRIN LOW STRENGTH 81 MG ORAL TABLET DISINTEGR ATING 1 by mouth every daily ASPIRIN 70994568324 Active Mitch Urbina DO Ac tive METOPROLOL TARTRATE 50 MG ORAL TABLET 1 by mouth twice daily METOPROLOL TARTRATE 59561517321 Active Maria Rivas RN Ac tive BACTRIM DS 800-160 MG ORAL TABLET 1 tab by mouth twice daily 201 10/19/09 BACTRIM DS 800-160 MG ORAL TABLET 640443 TRIMETHOPRIM-SULFAMETHOXAZOLE Inactive PROVIGIL 100 MG ORAL TABLET Take one by mouth daily 20 08/20/04 PROVIGIL 100 MG ORAL TABLET 173977 MODAFINIL Inactive FUROSEMIDE 40 MG ORAL TABLET 1 by mouth daily FUROSEMIDE 40 MG ORAL TABLET 165686 FUROSEMIDE Inactive KLOR-CON 20 MEQ ORAL PACKET Take one by mouth daily 20 09/10/08 KLOR- CON 20 MEQ ORAL PACKET 3856015 POTASSIUM CHLORIDE Inactive LISINOPRIL 5 MG ORAL TABLET 1 by mouth every day 11/17 LISINOPRIL 5 MG ORAL TABLET 373696 LISINOPRIL Inactive COLCRYS 0.6 MG ORAL TABLET 1 po q 6 hours prn gout pain COLCRYS 0.6 MG ORAL TABLET 352248 COLCHICINE Inactive JANUVIA 100 MG ORAL TABLET 1/2 by mouth every day 2011 JANUVIA 100 MG ORAL TABLET SITAGLIPTIN PHOSPHATE Inactive SIMVASTATIN 20 MG ORAL TABLET 1 tab daily at bedtime 2 SIMVASTATIN 20 MG ORAL TABLET 945520 SIMVASTATIN Inactive COUMADIN 6 MG ORAL TABLET 1 by mouth every other day 2 COUMADIN 6 MG ORAL TABLET 023787 WARFARIN SODIUM Inactive COUMADIN 5 MG ORAL TABLET 1 by mouth every other day 2 COUMADIN 5 MG ORAL TABLET 520006 WARFARIN SODIUM Inactive LISINOPRIL 20 MG ORAL TABLET 1 tab po at HS LISINOPRIL 20 MG ORAL TABLET 441945 LISINOPRIL Inactive LISINOPRIL-HYDROCHLOROTHIAZIDE 20-12.5 MG ORAL TABLET 1 tab by m outh daily LISINOPRIL-HYDROCHLOROTHIAZIDE 20-12.5 MG ORAL TABLET 900042 LISINOPRIL-HYDROCHLOROTHIAZIDE Inactive POLYTRIM 56259-3.1 UNIT/ML-% OPHTHALMIC SOLUTION 1 rui p in affected eye every 3 hours while awake x 7 days POLYTRIM 1000 0-0.1 UNIT/ML-% OPHTHALMIC SOLUTION 589937 POLYMYXIN B-TRIMETHOPRIM Inactive COUMADIN 4 MG ORAL TABLET 1 tablet daily COUMADIN 4 MG ORAL TABLET 487649 WARFARIN SODIUM Inactive CLONIDINE HCL 0.1 MG ORAL TABLET 1 po bid 7 days, then 1/2 t ab po bid 7 days CLONIDINE HCL 0.1 MG ORAL TABLET 513662 CLONIDIN E HCL Inactive ALLOPURINOL 300 MG ORAL TABLET Take 1 tablet by mouth daily 2012 ALLOPURINOL 300 MG ORAL TABLET 907319 ALLOPURINOL I nactive MECLIZINE HCL 25 MG ORAL TABLET 1 po tid 3 days, then 1/2 ta b tid 3 days MECLIZINE HCL 25 MG ORAL TABLET 083751 MECLIZINE HCL Inactive AMLODIPINE BESYLATE 5 MG ORAL TABLET 1 tablet by mouth daily 201 01/20/04 AMLODIPINE BESYLATE 5 MG ORAL TABLET 124459 AMLODIPINE BESYLATE Inactive KEFLEX 500 MG ORAL CAPSULE 1 po qid K EFLEX 500 MG ORAL CAPSULE 442906 CEPHALEXIN Inactive COLCRYS 0.6 MG ORAL TABLET 1 tab qid prn gout COLCRYS 0.6 MG ORAL TABLET 034988 COLCHICINE Inactive FAMOTIDINE 20 MG ORAL TABLET by mouth twice a day 2017 FAMOTIDINE 20 MG ORAL TABLET 210111 FAMOTIDINE Inactive GLIMEPIRIDE 2 MG ORAL TABLET 1 po BID GLIMEPIRIDE 2 MG ORAL TABLET 497854 GLIMEPIRIDE Inactive LOVENOX 100 MG/ML SUBCUTANEOUS SOLUTION One injection twice a da y LOVENOX 100 MG/ML SUBCUTANEOUS SOLUTION 396445 ENOXAPAR IN SODIUM Inactive Advance Directives Directive [...] 11 .6-14.8 platelet count 238 10^3/MM^3 10*3/mm3 516-696 1406/03/29 leukocyte count, blood 6.7 10^3/MM^3 10*3/mm3 4.6-10.2 [...] mg/dL Encounters Code Encounter Date Provider Facility CPT-66690 [id number] Vst-Est Level IV 10:06:35 CDT Stephy Urbina [facility] [id number] Vst-Est Level IV 10:52:00 RESERVATION AGENT Stephy Urbina [facility] CPT-89133 Level 3 Est. Patient 18:25:53 CDT Mitch Castellano janelle [facility] CPT-18115 Level 3 Est. Patient 19:43:34 CDT Mitch luis [facility] CPT-54008 Level 4 Est. Patient 09:30:18 CDT Mitch luis [facility] CPT-63972 Level 3 Est. Patient 15:10:14 CDT Joe Jason kamara [facility] CPT-40970 Level 3 Est. Patient 15:03:46 CDT Joe Jason kamara [facility] CPT-81516 Level 3 Est. Patient 14:21:06 CDT Mitch luis [facility] CPT-91974 Level 3 Est. Patient 14:52:06 CDT Joe Jason kamara [facility] CPT-07134 Level 3 Est. Patient 09:34:30 RESERVATION AGENT Mitch luis [facility] CPT-29289 Level 3 Est. Patient 09:37:15 CDT Mitch luis [facility] CPT-17895 Level 3 Est. Patient 17:01:00 RESERVATION AGENT Mitch luis [facility] CPT-68527 Level 3 Est. Patient 13:53:19 RESERVATION AGENT Mitch luis [facility] CPT-97660 Level 3 Est. Patient 19:19:37 RESERVATION AGENT Mitch luis [facility] CPT-55585 Level 3 Est. Patient 13:25:53 RESERVATION AGENT Tavo toure MD [facility] CPT-35183 Level 3 Est. Patient 18:17:28 CDT Mitch luis [facility] CPT-60524 Level 3 Est. Patient 15:22:57 CDT Mitch luis [facility] CPT-77198 Level 3 Est. Patient 18:21:50 CDT Mitch luis [facility] CPT-41265 Level 3 Est. Patient 18:20:38 CDT Mitch luis [facility] CPT-43062 Level 3 Est. Patient 15:37:55 CDT Mitch luis [facility] CPT-48340 Level 2 Est. Patient 15:54:44 CDT Carmine benton MD [facility] CPT-40843 Level 3 Est. Patient 21:46:01 RESERVATION AGENT Mitch luis [facility] CPT-94453 Level 3 Est. Patient 22:15:50 CDT Mitch luis [facility] CPT-68761 Level 3 Est. Patient 10:48:15 CDT Mitch luis [facility] CPT-37878 Level 3 Est. Patient 23:20:57 CDT Tavo toure MD [facility] CPT-61033 Level 3 Est. Patient 16:26:13 CDT Mitch Arnol luis [facility] Procedures Code Procedure Name Date Entry Date Standard Desc ription CPT-JTINJ Asp/Joint Injection 18:47:02 CDT CPT-47899 Venipuncture Draw Fee 09:26:17 CDT CPT-35718 PT/INR - LAB USE ONLY 13:32:49 RESERVATION AGENT CPT-73064 Venipuncture Draw Fee 13:32:49 RESERVATION AGENT CPT-10214 PT/INR - LAB USE ONLY 10:34:49 RESERVATION AGENT CPT-14676 Venipuncture Draw Fee 10:34:48 RESERVATION AGENT CPT-79681 PT/INR - LAB USE ONLY 09:22:03 RESERVATION AGENT CPT-29837 Venipuncture Draw Fee 09:22:02 RESERVATION AGENT CPT-03908 Hemoccult IFOBT - LAB USE ONLY 10:27:22 CDT CPT-94662 Venipuncture Draw Fee 08:27:08 CDT CPT-28182 Liver Profile - LAB USE ONLY 08:27:07 CDT 2 CPT-11536 Microalbumin - LAB USE ONLY 08:27:07 CDT 20 25/05/09 CPT-24211 PT/INR - LAB USE ONLY 08:27:07 CDT CPT-54509 HGBA1C - LAB USE ONLY 08:27:07 CDT CPT-49447 CBC - LAB USE ONLY 08:27:07 CDT CPT-09811 Venipuncture Draw Fee 11:09:14 CDT CPT-80825 Venipuncture Draw Fee 08:32:21 RESERVATION AGENT CPT-08149 Venipuncture Draw Fee 09:38:56 RESERVATION AGENT CPT-03064 No Charge Offi Visit 21:36:07 CDT 1 CPT-74688 Venipuncture Draw Fee 10:13:28 RESERVATION AGENT CPT-45445 Venipuncture Draw Fee 08:31:11 CDT CPT-23012 Aspir/Inject Med Joint 18:17:28 CDT CPT-45625 Venipuncture Draw Fee 10:13:30 CDT CPT-78629 Venipuncture Draw Fee 08:31:43 RESERVATION AGENT CPT-JTINJ Joint Injection 18:34:50 CDT CPT-07566 Knee 3V 12:25:09 CDT CPT-00858 Venipuncture Draw Fee 12:15:57 CDT CPT-060 Medical Surveillance Exam 21:31:43 CDT 2011 CPT-44383 Venipuncture Draw Fee 08:32:05 RESERVATION AGENT CPT-OV Office Visit 18:19:06 CDT
--- OUTSIDE RECORDS SUMMARY | 2020-01-18 12:01 | XMS REPORT | Clinical Summary ---
Author Author Admin, Mitch Leon Organization [facility] [employer] [employer] Address Unknown Phone Unavailable Allergies, Adverse Reactions, [...] daily for high b lood pressure MINOXIDIL 58789550753 Active Mitch Urbina DO Ac tive METFORMIN HCL ER 500 MG ORAL TABLET EXTENDED RELEASE 2 4 HOUR 2 tablets by mouth twice daily METFORMIN HCL 97562052394 Active Mitch Urbina Active GLIMEPIRIDE 4 MG ORAL TABLET 1 tablet by mouth twice daily f or diabetes GLIMEPIRIDE 38345636293 Active Mitch Arnol Urbina Active GLIMEPIRIDE 2 MG ORAL TABLET 1 po BID GLIMEPI RIDE 93833037383 No Longer Active Mitch Urbina DO Active AMLODIPINE BESYLATE 5 MG ORAL TABLET 1 tablet by mouth daily AMLODIPINE BESYLATE 59894110972 Active Mitch Urbina DO Active PROVIGIL 200 MG ORAL TABLET 1/2 tab po q day MODA FINIL 99249334595 Active Renee Oconnor LPN Active FAMOTIDINE 20 MG ORAL TABLET by mouth twice a day 2017 FAMOTIDINE 14755228059 No Longer Active Mitch Urbina DO Active COLCRYS 0.6 MG ORAL TABLET 1 tab qid prn gout C OLCHICINE 12728888729 No Longer Active Mitch Urbina DO Active KEFLEX 500 MG ORAL CAPSULE 1 po qid CEPHALEXI N 10395847488 No Longer Active Mitch Urbina DO Active LOSARTAN POTASSIUM 100 MG ORAL TABLET 1 pill by mouth daily, for blood pressure LOSARTAN POTASSIUM 22531455759 Active Ana Ocampo Active AMLODIPINE BESYLATE 5 MG ORAL TABLET 1 tablet by mouth daily 201 01/20/04 AMLODIPINE BESYLATE 17851745900 No Longer Active Jillina Fra donaldo [employer] SERVICER Active MITIGARE 0.6 MG ORAL CAPSULE 2 capsules at onset of go ut pain, then take one capsule at 1 hour if symptoms persist. COLCHICINE 59 771980565 Active Mitch Urbina DO Active COUMADIN 1 MG ORAL TABLET 2 tabs orally daily with the 5mg tab to equal 7mg daily WARFARIN SODIUM 06500316638 Active Maria Briones Active INVOKANA 100 MG ORAL TABLET 1 tablet orally daily CANAGLIFLOZIN 95902092127 Active Mitch Urbina DO Active MECLIZINE HCL 25 MG ORAL TABLET 1 po tid 3 days, then 1/2 ta b tid 3 days MECLIZINE HCL 27735215104 No Longer Active Corey SEGURA Active ALLOPURINOL 300 MG ORAL TABLET Take 1 tablet by mouth daily 2012 ALLOPURINOL 47841704112 No Longer Active Corey SEGURA Active CLONIDINE HCL 0.1 MG ORAL TABLET 1 po bid 7 days, then 1/2 t ab po bid 7 days CLONIDINE HCL 69541781082 No Longer Active Corey SEGURA Active COUMADIN 5 MG ORAL TABLET 1 tab PO daily WARFAR IN SODIUM 66286093388 Active Renee Oconnor LPN Active COUMADIN 4 MG ORAL TABLET 1 tablet daily WARFAR IN SODIUM 16240235872 No Longer Active Corey SEGURA Active POLYTRIM 56753-7.1 UNIT/ML-% OPHTHALMIC SOLUTION 1 rui p in affected eye every 3 hours while awake x 7 days POLYMYXIN B-TRIMETHOP RIM 93790395272 No Longer Active Corey SEGURA Active LOSARTAN POTASSIUM-HCTZ 100-12.5 MG ORAL TABLET 1 by m outh daily for high blood pressure LOSARTAN POTASSIUM-HCTZ 26359794246 No Longer A ctive Mitch Urbina DO Active LISINOPRIL-HYDROCHLOROTHIAZIDE 20-12.5 MG ORAL TABLET 1 tab by m outh daily LISINOPRIL-HYDROCHLOROTHIAZIDE 03859025095 No Longer Active Mitch Urbina DO Active LISINOPRIL 20 MG ORAL TABLET 1 tab po at HS LIS INOPRIL 31856137755 No Longer Active Mitch Urbina DO Active COUMADIN 5 MG ORAL TABLET 1 by mouth every other day 2 WARFARIN SODIUM 56642118685 No Longer Active Mitch Urbina DO Active COUMADIN 6 MG ORAL TABLET 1 by mouth every other day 2 WARFARIN SODIUM 58654887657 No Longer Active Mitch Urbina DO Active SIMVASTATIN 40 MG ORAL TABLET 1 tab daily at bedtime SIMVASTATIN 95101014981 Active Maria Rivas RN Active SIMVASTATIN 20 MG ORAL TABLET 1 tab daily at bedtime 2 SIMVASTATIN 48934376033 No Longer Active Mitch Urbina DO Active LOVENOX 100 MG/ML SUBCUTANEOUS SOLUTION One injection twice a da y ENOXAPARIN SODIUM 73546800495 No Longer Active Carmine Yusuf MD Active JANUVIA 50 MG ORAL TABLET Take one by mouth daily SITAGLIPTIN PHOSPHATE 20205161416 Active Renee Elvin DE LA ROSA Active JANUVIA 100 MG ORAL TABLET 1/2 by mouth every day 2011 SITAGLIPTIN PHOSPHATE 63795575519 No Longer Active Bijal Segal RN Acti ve METFORMIN HCL 500 MG ORAL TABLET 2 by mouth twice daily METFORMIN HCL 79947136430 No Longer Active Renee Oconnor LPN Active COLCRYS 0.6 MG ORAL TABLET 1 po q 6 hours prn gout pain COLCHICINE 92321257411 No Longer Active Camila Reese Active LISINOPRIL 5 MG ORAL TABLET 1 by mouth every day 11/17 LISINOPRIL 61294967710 No Longer Active Nguyen Perez Active KLOR-CON 20 MEQ ORAL PACKET Take one by mouth daily 09/10/08 POTASSIUM CHLORIDE 94795738355 No Longer Active Nguyen Perez Active FUROSEMIDE 40 MG ORAL TABLET 1 by mouth daily F UROSEMIDE 12822661571 No Longer Active Nguyen Perez Active PROVIGIL 100 MG ORAL TABLET Take one by mouth daily 08/20/04 MODAFINIL 52194765376 No Longer Active Mitch Urbina DO Active BACTRIM DS 800-160 MG ORAL TABLET 1 tab by mouth twice daily 201 10/19/09 TRIMETHOPRIM-SULFAMETHOXAZOLE 59549484993 No Longer Active Elian Hays MD Active ADULT ASPIRIN LOW STRENGTH 81 MG ORAL TABLET DISINTEGR ATING 1 by mouth every daily ASPIRIN 92664232385 Active Mitch Urbina DO Ac tive METOPROLOL TARTRATE 50 MG ORAL TABLET 1 by mouth twice daily METOPROLOL TARTRATE 08669756718 Active Maria Rivas RN Ac tive ALLOPURINOL 300 MG ORAL TABLET Take 1 tablet by mouth daily 2012 ALLOPURINOL 300 MG ORAL TABLET 839352 ALLOPURINOL I nactive BACTRIM DS 800-160 MG ORAL TABLET 1 tab by mouth twice daily 201 10/19/09 BACTRIM DS 800-160 MG ORAL TABLET 652657 TRIMETHOPRIM-SULFAMETHOXAZOLE Inactive CLONIDINE HCL 0.1 MG ORAL TABLET 1 po bid 7 days, then 1/2 t ab po bid 7 days CLONIDINE HCL 0.1 MG ORAL TABLET 745882 CLONIDIN E HCL Inactive COUMADIN 5 MG ORAL TABLET 1 by mouth every other day 2 COUMADIN 5 MG ORAL TABLET 090978 WARFARIN SODIUM Inactive FUROSEMIDE 40 MG ORAL TABLET 1 by mouth daily FUROSEMIDE 40 MG ORAL TABLET 465632 FUROSEMIDE Inactive KEFLEX 500 MG ORAL CAPSULE 1 po qid K EFLEX 500 MG ORAL CAPSULE 006197 CEPHALEXIN Inactive KLOR-CON 20 MEQ ORAL PACKET Take one by mouth daily 09/10/08 KLOR- CON 20 MEQ ORAL PACKET 8714358 POTASSIUM CHLORIDE Inactive LISINOPRIL 20 MG ORAL TABLET 1 tab po at HS LISINOPRIL 20 MG ORAL TABLET 806818 LISINOPRIL Inactive POLYTRIM 58815-0.1 UNIT/ML-% OPHTHALMIC SOLUTION 1 rui p in affected eye every 3 hours while awake x 7 days POLYTRIM 1000 0-0.1 UNIT/ML-% OPHTHALMIC SOLUTION 935805 POLYMYXIN B-TRIMETHOPRIM Inactive AMLODIPINE BESYLATE 5 MG ORAL TABLET 1 tablet by mouth daily 201 01/20/04 AMLODIPINE BESYLATE 5 MG ORAL TABLET 706971 AMLODIPINE BESYLATE Inactive FAMOTIDINE 20 MG ORAL TABLET by mouth twice a day 2017 FAMOTIDINE 20 MG ORAL TABLET 863963 FAMOTIDINE Inactive LISINOPRIL 5 MG ORAL TABLET 1 by mouth every day 11/17 LISINOPRIL 5 MG ORAL TABLET 766927 LISINOPRIL Inactive LISINOPRIL-HYDROCHLOROTHIAZIDE 20-12.5 MG ORAL TABLET 1 tab by m outh daily LISINOPRIL-HYDROCHLOROTHIAZIDE 20-12.5 MG ORAL TABLET 352114 LISINOPRIL-HYDROCHLOROTHIAZIDE Inactive SIMVASTATIN 20 MG ORAL TABLET 1 tab daily at bedtime SIMVASTATIN 20 MG ORAL TABLET 463050 SIMVASTATIN Inactive COUMADIN 4 MG ORAL TABLET 1 tablet daily COUMADIN 4 MG ORAL TABLET 993659 WARFARIN SODIUM Inactive MECLIZINE HCL 25 MG ORAL TABLET 1 po tid 3 days, then 1/2 ta b tid 3 days MECLIZINE HCL 25 MG ORAL TABLET 398861 MECLIZINE HCL Inactive GLIMEPIRIDE 2 MG ORAL TABLET 1 po BID GLIMEPIRIDE 2 MG ORAL TABLET 487413 GLIMEPIRIDE Inactive COUMADIN 6 MG ORAL TABLET 1 by mouth every other day COUMADIN 6 MG ORAL TABLET 589146 WARFARIN SODIUM Inactive LOVENOX 100 MG/ML SUBCUTANEOUS SOLUTION One injection twice a da y LOVENOX 100 MG/ML SUBCUTANEOUS SOLUTION 491511 ENOXAPAR IN SODIUM Inactive PROVIGIL 100 MG ORAL TABLET Take one by mouth daily 08/20/04 PROVIGIL 100 MG ORAL TABLET 108478 MODAFINIL Inactive JANUVIA 100 MG ORAL TABLET [...] 11 .6-14.8 platelet count 238 10^3/MM^3 10*3/mm3 806-720 4337/03/29 leukocyte count, blood 6.7 10^3/MM^3 10*3/mm3 4.6-10.2 [...] mg/dL Encounters Code Encounter Date Provider Facility CPT-65227 [id number] Vst-Est Level IV 10:06:35 CDT Stephy Urbina [facility] CPT-55039 [id number]-Aef Vst-Est Level IV 10:52:00 DIRECTOR OF VOLUNTEER SERVICES Stephy Urbina [facility] CPT-37092 Level 3 Est. Patient 18:25:53 CDT Mitch Castellano janelle [facility] CPT-02434 Level 3 Est. Patient 19:43:34 CDT Mitch luis [facility] CPT-10366 Level 4 Est. Patient 09:30:18 CDT Mitch luis [facility] CPT-49749 Level 3 Est. Patient 15:10:14 CDT Joe Jason kamara [facility] [place] CPT-50812 Level 3 Est. Patient 15:03:46 CDT Joe Jason kamara [facility] [place] CPT-75558 Level 3 Est. Patient 14:21:06 CDT Mitch Castellano janelle [facility] CPT-91484 Level 3 Est. Patient 14:52:06 CDT Joe Jason kamara [facility] [place] CPT-08124 Level 3 Est. Patient 09:34:30 DIRECTOR OF VOLUNTEER SERVICES Mitch luis [facility] CPT-97557 Level 3 Est. Patient 09:37:15 CDT Mitch luis [facility] CPT-03542 Level 3 Est. Patient 17:01:00 DIRECTOR OF VOLUNTEER SERVICES Mitch luis [facility] CPT-33351 Level 3 Est. Patient 13:53:19 DIRECTOR OF VOLUNTEER SERVICES Mitch luis [facility] CPT-59528 Level 3 Est. Patient 19:19:37 DIRECTOR OF VOLUNTEER SERVICES Mitch luis [facility] CPT-38340 Level 3 Est. Patient 13:25:53 DIRECTOR OF VOLUNTEER SERVICES Tavo toure MD [facility] CPT-45784 Level 3 Est. Patient 18:17:[address] [facility] CPT-79663 Level 3 Est. Patient 15:22:57 CDT Mitch luis [facility] CPT-12719 Level 3 Est. Patient 18:21:50 CDT Mitch luis [facility] CPT-71289 Level 3 Est. Patient 18:20:38 CDT Mitch luis [facility] CPT-50991 Level 3 Est. Patient 15:37:[address] [facility] CPT-57717 Level 2 Est. Patient 15:54:44 CDT Carmine benton MD [facility] CPT-79281 Level 3 Est. Patient 21:46:01 DIRECTOR OF VOLUNTEER SERVICES Mitch luis [facility] CPT-81907 Level 3 Est. Patient 22:15:[address] [facility] CPT-04843 Level 3 Est. Patient 10:48:[address] [facility] CPT-65738 Level 3 Est. Patient 23:20:57 CDT Tavo toure MD [facility] CPT-82896 Level 3 Est. Patient 16:26:13 CDT Mitch Arnol luis [facility] Procedures Code Procedure Name Date Entry Date Standard Desc ription CPT-JTINJ Asp/Joint Injection 18:47:02 CDT CPT-10449 Venipuncture Draw Fee 09:26:17 CDT CPT-23090 PT/INR - LAB USE ONLY 13:32:49 DIRECTOR OF VOLUNTEER SERVICES CPT-45991 Venipuncture Draw Fee 13:32:49 DIRECTOR OF VOLUNTEER SERVICES CPT-31669 PT/INR - LAB USE ONLY 10:34:49 DIRECTOR OF VOLUNTEER SERVICES CPT-66334 Venipuncture Draw Fee 10:34:48 DIRECTOR OF VOLUNTEER SERVICES CPT-71733 PT/INR - LAB USE ONLY 09:22:03 DIRECTOR OF VOLUNTEER SERVICES CPT-79375 Venipuncture Draw Fee 09:22:02 DIRECTOR OF VOLUNTEER SERVICES CPT-43015 Hemoccult IFOBT - LAB USE ONLY 10:27:22 CDT CPT-85769 Venipuncture Draw Fee 08:27:08 CDT CPT-55319 Liver Profile - LAB USE ONLY 08:27:07 CDT 2 CPT-20857 Microalbumin - LAB USE ONLY 08:27:07 CDT 20 25/05/09 CPT-15204 PT/INR - LAB USE ONLY 08:27:07 CDT CPT-06836 HGBA1C - LAB USE ONLY 08:27:07 CDT CPT-36727 CBC - LAB USE ONLY 08:27:07 CDT CPT-51471 Venipuncture Draw Fee 11:09:14 CDT CPT-36276 Venipuncture Draw Fee 08:32:21 DIRECTOR OF VOLUNTEER SERVICES CPT-51911 Venipuncture Draw Fee 09:38:56 DIRECTOR OF VOLUNTEER SERVICES CPT-45321 No Charge Offi Visit 21:36:07 CDT 1 CPT-93803 Venipuncture Draw Fee 10:13:28 DIRECTOR OF VOLUNTEER SERVICES CPT-98410 Venipuncture Draw Fee 08:31:11 CDT CPT-12571 Aspir/Inject Med Joint 18:17:28 CDT CPT-13068 Venipuncture Draw Fee 10:13:30 CDT CPT-54058 Venipuncture Draw Fee 08:31:43 DIRECTOR OF VOLUNTEER SERVICES CPT-JTINJ Joint Injection 18:34:50 CDT CPT-47998 Knee 3V 12:25:09 CDT CPT-46935 Venipuncture Draw Fee 12:15:57 CDT CPT-060 Medical Surveillance Exam 21:31:43 CDT 2011 CPT-45297 Venipuncture Draw Fee 08:32:05 DIRECTOR OF VOLUNTEER SERVICES CPT-OV Office Visit 18:19:06 CDT
--- OUTSIDE RECORDS SUMMARY | 2020-01-18 12:02 | XMS REPORT | Clinical Summary ---
Author Author Admin, Mitch Leon Organization [facility] Address Unknown Phone Unavailable Allergies, Adverse [...] tab to equal 7mg daily WARFARIN SODIUM 34743838041 Active Mitch Urbina DO Active COLCRYS 0.6 MG TABS 1 tab qid prn gout COLCHICINE 69932586256 Active Kathie Juan RPT,RMA Active INVOKANA 100 MG ORAL TABS 1 tablet orally daily CANAGLIFLOZIN 79374336826 Active Mitch Urbina DO Active MINOXIDIL 2.5 MG TABS 1 tablet daily for high blood pressure 10/23 MINOXIDIL 88378374299 Active Domi Rivera MA Active AMLODIPINE BESYLATE 5 MG TABS 1 tablet by mouth daily AMLODIPINE BESYLATE 79292581770 Active Mitch Urbina DO Active MECLIZINE HCL 25 MG TAB 1 po tid 3 days, then 1/2 tab tid 3 days MECLIZINE HCL 83769095245 No Longer Active Corey SEGURA Active ALLOPURINOL 300 MG TABS Take 1 tablet by mouth daily 2 ALLOPURINOL 10619902675 No Longer Active Corey SEGURA Activ e CLONIDINE HCL 0.1 MG TABS 1 po bid 7 days, then 1/2 tab po b id 7 days CLONIDINE HCL 72600856718 No Longer Active Corey SEGURA Active COUMADIN 5 MG TABS 1 tab PO daily WARFARIN SODIUM 25866922451 Active Mitch Urbina DO Active COUMADIN 4 MG TABS 1 tablet daily WARFARIN SODI UM 07010781709 No Longer Active Corey SEGURA Active POLYTRIM 30252-8.1 UNIT/ML-% SOLN 1 drop in affected e ye every 3 hours while awake x 7 days POLYMYXIN B-TRIMETHOPRIM 01049897062 N o Longer Active Corey SEGURA Active LOSARTAN POTASSIUM-HCTZ 100-12.5 MG TABS 1 by mouth da rocky for high blood pressure LOSARTAN POTASSIUM-HCTZ 13285555791 Active Stephy Urbina DO Active LISINOPRIL-HYDROCHLOROTHIAZIDE 20-12.5 MG TABS 1 tab by mouth da rocky LISINOPRIL-HYDROCHLOROTHIAZIDE 58881462606 No Longer Active Mitch luis DO Active LISINOPRIL 20 MG TABS 1 tab po at HS LISINOPRIL 43758321536 No Longer Active Mitch Urbina DO Active COUMADIN 5 MG TABS 1 by mouth every other day WARFARIN SODIUM 34341516038 No Longer Active Mitch Urbina DO Active COUMADIN 6 MG TABS 1 by mouth every other day WARFARIN SODIUM 32163251975 No Longer Active Mitch W [place] DO Active SIMVASTATIN 40 MG TABS 1 tab daily at bedtime S IMVASTATIN 39551362700 Active Mitch Urbina DO Active SIMVASTATIN 20 MG TABS 1 tab daily at bedtime S IMVASTATIN 85692512951 No Longer Active Mitch Urbina DO Active LOVENOX 100 MG/ML SC SOLN One injection twice a day 09/15/15 ENOXAPARIN SODIUM 43197175268 No Longer Active Carmine Nvaarrete ctive JANUVIA 50 MG TABS Take one by mouth daily DIEGO GLIPTIN PHOSPHATE 17730520960 Active Mitch Urbina DO Active JANUVIA 100 MG TABS 1/2 by mouth every day DIEGO GLIPTIN PHOSPHATE 33635314043 No Longer Active Bijal Segal RN Active METFORMIN HCL 500 MG TABS 2 by mouth twice daily METFORMIN HCL 13711263165 Active Mitch Urbina DO Active GLIMEPIRIDE 4 MG TABS 1 tab po bid GLIMEPIRIDE 241804 02983 Active Mitch Urbina DO Active COLCRYS 0.6 MG TABS 1 po q 6 hours prn gout pain 03/02 COLCHICINE 67950533999 No Longer Active Camila Reese Active LISINOPRIL 5 MG TABS 1 by mouth every day LISIN OPRIL 86235928962 No Longer Active Nguyen Perez Active KLOR-CON 20 MEQ PACK Take one by mouth daily 8 POTASSIUM CHLORIDE 63567322629 No Longer Active Nguyen Perez Active FUROSEMIDE 40 MG TABS 1 by mouth daily FUROSEMI DE 97124960352 No Longer Active Nguyenmolly Perez Active PROVIGIL 200 MG TABS 1/2 tab po q day MODAFINIL 69791 097779 Active Mitch Urbina DO Active PROVIGIL 100 MG TABS Take one by mouth daily MO DAFINIL 68954179604 No Longer Active Mitch Urbina DO Active BACTRIM DS 800-160 MG TAB 1 tab by mouth twice daily 2 TRIMETHOPRIM-SULFAMETHOXAZOLE 42282183869 No Longer Active Renan Hays MD Active FAMOTIDINE 20 MG TABS by mouth twice a day FAMOTI DINE 61772903541 Active Mitch Urbina DO Active ADULT ASPIRIN LOW STRENGTH 81 MG TBDP 1 by mouth every daily ASPIRIN 64699910276 Active Mitch Urbina DO Active METOPROLOL TARTRATE 50 MG TABS 1 by mouth twice daily METOPROLOL TARTRATE 62244648576 Active Mitch Urbina DO Active BACTRIM DS 800-160 MG TAB 1 tab by mouth twice daily 2 BACTRIM DS 800-160 MG TAB 597942 TRIMETHOPRIM-SULFAMETHOXAZOLE Inac tive PROVIGIL 100 MG TABS Take one by mouth daily 4 PROVIGIL 100 MG TABS 232390 MODAFINIL Inactive FUROSEMIDE 40 MG TABS 1 by mouth daily FU ROSEMIDE 40 MG TABS 804827 FUROSEMIDE Inactive KLOR-CON 20 MEQ PACK Take one by mouth daily 8 KLOR-CON 20 MEQ PACK 781399 POTASSIUM CHLORIDE Inactive LISINOPRIL 5 MG TABS 1 by mouth every day LISINOPRIL 5 MG TABS 950956 LISINOPRIL Inactive COLCRYS 0.6 MG TABS 1 po q 6 hours prn gout pain 03/02 COLCRYS 0.6 MG TABS 167506 COLCHICINE Inactive JANUVIA 100 MG TABS 1/2 by mouth every day JANUVI A 100 MG TABS SITAGLIPTIN PHOSPHATE Inactive SIMVASTATIN 20 MG TABS 1 tab daily at bedtime SIMVASTATIN 20 MG TABS 043525 SIMVASTATIN Inactive COUMADIN 6 MG TABS 1 by mouth every other day COUMADIN 6 MG TABS 325635 WARFARIN SODIUM Inactive COUMADIN 5 MG TABS 1 by mouth every other day COUMADIN 5 MG TABS 172900 WARFARIN SODIUM Inactive LISINOPRIL 20 MG TABS 1 tab po at HS KOKI NOPRIL 20 MG TABS 789648 LISINOPRIL Inactive LISINOPRIL-HYDROCHLOROTHIAZIDE 20-12.5 MG TABS 1 tab by mouth da rocky LISINOPRIL-HYDROCHLOROTHIAZIDE 20-12.5 MG TABS 186753 LISINOPRIL-HYDROCHLOROTHIAZIDE Inactive POLYTRIM 97727-1.1 UNIT/ML-% SOLN 1 drop in affected e ye every 3 hours while awake x 7 days POLYTRIM 90027-1.1 UNIT/ML-% SOLN 62013 7 POLYMYXIN B-TRIMETHOPRIM Inactive COUMADIN 4 MG TABS 1 tablet daily COUMADIN 4 MG TABS 221447 WARFARIN SODIUM Inactive CLONIDINE HCL 0.1 MG TABS 1 po bid 7 days, then 1/2 tab po b id 7 days CLONIDINE HCL 0.1 MG TABS 777757 CLONIDINE HCL I nactive ALLOPURINOL 300 MG TABS Take 1 tablet by mouth daily 2 ALLOPURINOL 300 MG TABS 090620 ALLOPURINOL Inactive MECLIZINE HCL 25 MG TAB 1 po tid 3 days, then 1/2 tab tid 3 days MECLIZINE HCL 25 MG TAB 217229 MECLIZINE HCL Inactive LOVENOX 100 MG/ML SC SOLN One injection twice a day 09/15/15 LOVENOX 100 MG/ML SC SOLN 710693 ENOXAPARIN SODIUM Inactive Vital Signs Date Name [...] - Chem istry sodium, serum 136 mmol/L 745-123 7102/01/14 carbon dioxide, venous blood 25.4 mmol/L 21.0-32 [...] CBC - Chemistry cholesterol, serum 136 mg/dL 742-248 7757/08/09 triglyceride, serum, fasting 187 mg/dL 30-200 HDL [...] 1.0-3.5 Encounters Code Encounter Date Provider Facility CPT-59155 Level 3 Est. Patient 14:21:06 CDT Mitch Ambrose L janelle [facility] CPT-62621 Level 3 Est. Patient 14:52:06 CDT Joe kamara APRN [facility]-26339 Level 3 Est. Patient 09:34:30 AREA FORESTER Mitch Ambrose L janelle [facility] CPT-94388 Level 3 Est. Patient 09:37:15 CDT Mitch Ambrose L ee [facility]-34780 Level 3 Est. Patient 17:01:00 AREA FORESTER Mitch Ambrose L janelle [facility] CPT-99260 Level 3 Est. Patient 13:53:19 AREA FORESTER Mitch W L janelle [facility] CPT-52053 Level 3 Est. Patient 19:19:37 AREA FORESTER Mitch W L janelle [facility] CPT-50259 Level 3 Est. Patient 13:25:53 AREA FORESTER Tavo toure MD [facility] CPT-51169 Level 3 Est. Patient 18:17:28 CDT Mitch W L janelle [facility] CPT-86791 Level 3 Est. Patient 15:22:57 CDT Mitch W L janelle [facility] CPT-58010 Level 3 Est. Patient 18:21:50 CDT Mitch W L janelle [facility] CPT-65012 Level 3 Est. Patient 18:20:38 CDT Mitch W L ee [facility] CPT-92427 Level 3 Est. Patient 15:37:55 CDT Mitch W L ee [facility] CPT-20910 Level 2 Est. Patient 15:54:44 CDT Carmine benton MD [facility] CPT-19269 Level 3 Est. Patient 21:46:01 AREA FORESTER Mitch luis [facility] CPT-75263 Level 3 Est. Patient 22:15:50 CDT Mitch Arnol luis [facility] CPT-49826 Level 3 Est. Patient 10:48:15 CDT Mitch luis [facility] CPT-87205 Level 3 Est. Patient 23:20:57 CDT Tavo toure MD [facility] CPT-22682 Level 3 Est. Patient 16:26:13 CDT Mitch luis [facility] Procedures Code Procedure Name Date Entry Date Standard Desc ription CPT-54448 Hemoccult IFOBT - LAB USE ONLY 10:27:22 CDT CPT-54247 Venipuncture Draw Fee 08:27:08 CDT CPT-25209 Liver Profile - LAB USE ONLY 08:27:07 CDT 2 CPT-80568 Microalbumin - LAB USE ONLY 08:27:07 CDT 20 25/05/09 CPT-40031 PT/INR - LAB USE ONLY 08:27:07 CDT CPT-72655 HGBA1C - LAB USE ONLY 08:27:07 CDT CPT-96239 CBC - LAB USE ONLY 08:27:07 CDT CPT-44118 Venipuncture Draw Fee 11:09:14 CDT CPT-01631 Venipuncture Draw Fee 08:32:21 AREA FORESTER CPT-93960 Venipuncture Draw Fee 09:38:56 AREA FORESTER CPT-41405 No Charge Offi Visit 21:36:07 CDT 1 CPT-69449 Venipuncture Draw Fee 10:13:28 AREA FORESTER CPT-91492 Venipuncture Draw Fee 08:31:11 CDT CPT-62814 Aspir/Inject Med Joint 18:17:28 CDT CPT-76732 Venipuncture Draw Fee 10:13:30 CDT CPT-36622 Venipuncture Draw Fee 08:31:43 AREA FORESTER CPT-JTINJ Joint Injection 18:34:50 CDT CPT-76830 Knee 3V 12:25:09 CDT CPT-65091 Venipuncture Draw Fee 12:15:57 CDT CPT-060 Medical Surveillance Exam 21:31:43 CDT 2011 CPT-59861 Venipuncture Draw Fee 08:32:05 AREA FORESTER CPT-OV Office Visit 18:19:06 CDT
--- OUTSIDE RECORDS SUMMARY | 2020-01-18 12:02 | XMS REPORT | Clinical Summary ---
Author Author Admin, Mitch Leon Organization [facility] Address Unknown Phone Unavailable Allergies, Adverse Reactions, [...] Coronary atherosclerosis of unspecified type of vessel, inupiat or graft EDEMA 782.3 Resolved Mitch Urbina [...] Carlitos DO Sebaceous cyst Cellulitis 682.9 Resolved Micth Arnol Carlitos DO Cellulitis and abscess of [...] ORAL TABLET 1 po BID GLIMEPIRID E 70179812054 Active Ana Wallace Active KEFLEX 500 MG ORAL CAPSULE 1 po qid CEPHALEXI N 09521207458 No Longer Active Mitch Urbina DO Active LOSARTAN POTASSIUM 100 MG ORAL TABLET 1 pill by mouth daily, for blood pressure LOSARTAN POTASSIUM 13570202711 Active Ana Wlalace Active AMLODIPINE BESYLATE 5 MG ORAL TABLET 1 tablet by mouth daily 201 01/20/04 AMLODIPINE BESYLATE 36905574697 No Longer Active Devonjustincarlitos fulton ANNIE Active MITIGARE 0.6 MG ORAL CAPSULE 2 capsules at onset of go ut pain, then take one capsule at 1 hour if symptoms persist. COLCHICINE 59 721968507 Active Mitch Urbina DO Active COUMADIN 1 MG ORAL TABLET 2 tabs orally daily with the 5mg tab to equal 7mg daily WARFARIN SODIUM 28416173964 Active Ana Wallace Active COLCRYS 0.6 MG ORAL TABLET 1 tab qid prn gout C OLCHICINE 53202872809 Active Norma Cazares Active INVOKANA 100 MG ORAL TABLET 1 tablet orally daily CANAGLIFLOZIN 86715846399 Active Mitch Urbina DO Active MINOXIDIL 2.5 MG ORAL TABLET 1 tablet daily for high blood press ure MINOXIDIL 85388493323 Active Mitch Urbina DO Active MECLIZINE HCL 25 MG ORAL TABLET 1 po tid 3 days, then 1/2 ta b tid 3 days MECLIZINE HCL 03557169814 No Longer Active Corey SEGURA Active ALLOPURINOL 300 MG ORAL TABLET Take 1 tablet by mouth daily 2012 ALLOPURINOL 07000807933 No Longer Active Corey SEGURA Active CLONIDINE HCL 0.1 MG ORAL TABLET 1 po bid 7 days, then 1/2 t ab po bid 7 days CLONIDINE HCL 22962228242 No Longer Active Corey SEGURA Active COUMADIN 5 MG ORAL TABLET 1 tab PO daily WARFAR IN SODIUM 28657098980 Active Mitch Urbina DO Active COUMADIN 4 MG ORAL TABLET 1 tablet daily WARFAR IN SODIUM 27355790956 No Longer Active Corey SEGURA Active POLYTRIM 47501-1.1 UNIT/ML-% OPHTHALMIC SOLUTION 1 rui p in affected eye every 3 hours while awake x 7 days POLYMYXIN B-TRIMETHOP RIM 70075094369 No Longer Active Corey SEGURA Active LOSARTAN POTASSIUM-HCTZ 100-12.5 MG ORAL TABLET 1 by m outh daily for high blood pressure LOSARTAN POTASSIUM-HCTZ 98272618305 No Longer A ctive Mitch Urbina DO Active LISINOPRIL-HYDROCHLOROTHIAZIDE 20-12.5 MG ORAL TABLET 1 tab by m outh daily LISINOPRIL-HYDROCHLOROTHIAZIDE 83017959670 No Longer Active Mitch Urbina DO Active LISINOPRIL 20 MG ORAL TABLET 1 tab po at HS LIS INOPRIL 08688543833 No Longer Active Mitch Urbina DO Active COUMADIN 5 MG ORAL TABLET 1 by mouth every other day 2 WARFARIN SODIUM 04613660085 No Longer Active Mitch Urbina DO Active COUMADIN 6 MG ORAL TABLET 1 by mouth every other day 2 WARFARIN SODIUM 80508893699 No Longer Active Mitch Urbina DO Active SIMVASTATIN 40 MG ORAL TABLET 1 tab daily at bedtime SIMVASTATIN 54483049136 Active Mitch Urbina DO Active SIMVASTATIN 20 MG ORAL TABLET 1 tab daily at bedtime 2 SIMVASTATIN 37629599399 No Longer Active Mitch Urbina DO Active LOVENOX 100 MG/ML SUBCUTANEOUS SOLUTION One injection twice a da y ENOXAPARIN SODIUM 88512309272 No Longer Active Carmine Yusuf MD Active JANUVIA 50 MG ORAL TABLET Take one by mouth daily SITAGLIPTIN PHOSPHATE 89048333241 Active Mitch Urbina DO Active JANUVIA 100 MG ORAL TABLET 1/2 by mouth every day 2011 SITAGLIPTIN PHOSPHATE 44541407174 No Longer Active Bijal Segal RN Acti ve METFORMIN HCL 500 MG ORAL TABLET 2 by mouth twice daily METFORMIN HCL 76424853473 Active Mitch Urbina DO Active COLCRYS 0.6 MG ORAL TABLET 1 po q 6 hours prn gout pain COLCHICINE 77375737543 No Longer Active Camila Reese Active LISINOPRIL 5 MG ORAL TABLET 1 by mouth every day 11/17 LISINOPRIL 05820965743 No Longer Active Nguyen Coekman Active KLOR-CON 20 MEQ ORAL PACKET Take one by mouth daily 09/10/08 POTASSIUM CHLORIDE 96961664098 No Longer Active Nguyen Perez Active FUROSEMIDE 40 MG ORAL TABLET 1 by mouth daily F UROSEMIDE 05592596281 No Longer Active Nguyen Coekman Active PROVIGIL 200 MG ORAL TABLET 1/2 tab po q day MODA FINIL 79817433271 Active Mitch Urbina DO Active PROVIGIL 100 MG ORAL TABLET Take one by mouth daily 08/20/04 MODAFINIL 93484853914 No Longer Active Mitch Urbina DO Active BACTRIM DS 800-160 MG ORAL TABLET 1 tab by mouth twice daily 201 10/19/09 TRIMETHOPRIM-SULFAMETHOXAZOLE 42169711020 No Longer Active Elian Hays MD Active FAMOTIDINE 20 MG ORAL TABLET by mouth twice a day FAMOTIDINE 77067304071 Active Mitch Urbina DO Active ADULT ASPIRIN LOW STRENGTH 81 MG ORAL TABLET DISINTEGR ATING 1 by mouth every daily ASPIRIN 02098329392 Active Mitch Urbina DO Ac tive METOPROLOL TARTRATE 50 MG ORAL TABLET 1 by mouth twice daily METOPROLOL TARTRATE 17106279383 Active Mitch Urbina DO Active BACTRIM DS 800-160 MG ORAL TABLET 1 tab by mouth twice daily 201 10/19/09 BACTRIM DS 800-160 MG ORAL TABLET 691250 TRIMETHOPRIM-SULFAMETHOXAZOLE Inactive PROVIGIL 100 MG ORAL TABLET Take one by mouth daily 08/20/04 PROVIGIL 100 MG ORAL TABLET 174224 MODAFINIL Inactive FUROSEMIDE 40 MG ORAL TABLET 1 by mouth daily FUROSEMIDE 40 MG ORAL TABLET 479674 FUROSEMIDE Inactive KLOR-CON 20 MEQ ORAL PACKET Take one by mouth daily 09/10/08 KLOR- CON 20 MEQ ORAL PACKET 5435675 POTASSIUM CHLORIDE Inactive LISINOPRIL 5 MG ORAL TABLET 1 by mouth every day 11/17 LISINOPRIL 5 MG ORAL TABLET 978598 LISINOPRIL Inactive COLCRYS 0.6 MG ORAL TABLET 1 po q 6 hours prn gout pain COLCRYS 0.6 MG ORAL TABLET 841883 COLCHICINE Inactive JANUVIA 100 MG ORAL TABLET 1/2 by mouth every day 2011 JANUVIA 100 MG ORAL TABLET SITAGLIPTIN PHOSPHATE Inactive SIMVASTATIN 20 MG ORAL TABLET 1 tab daily at bedtime 2 SIMVASTATIN 20 MG ORAL TABLET 925000 SIMVASTATIN Inactive COUMADIN 6 MG ORAL TABLET 1 by mouth every other day 2 COUMADIN 6 MG ORAL TABLET 676791 WARFARIN SODIUM Inactive COUMADIN 5 MG ORAL TABLET 1 by mouth every other day 2 COUMADIN 5 MG ORAL TABLET 008174 WARFARIN SODIUM Inactive LISINOPRIL 20 MG ORAL TABLET 1 tab po at HS LISINOPRIL 20 MG ORAL TABLET 094179 LISINOPRIL Inactive LISINOPRIL-HYDROCHLOROTHIAZIDE 20-12.5 MG ORAL TABLET 1 tab by m outh daily LISINOPRIL-HYDROCHLOROTHIAZIDE 20-12.5 MG ORAL TABLET 769263 LISINOPRIL-HYDROCHLOROTHIAZIDE Inactive POLYTRIM 76877-0.1 UNIT/ML-% OPHTHALMIC SOLUTION 1 rui p in affected eye every 3 hours while awake x 7 days POLYTRIM 1000 0-0.1 UNIT/ML-% OPHTHALMIC SOLUTION 828096 POLYMYXIN B-TRIMETHOPRIM Inactive COUMADIN 4 MG ORAL TABLET 1 tablet daily COUMADIN 4 MG ORAL TABLET 632765 WARFARIN SODIUM Inactive CLONIDINE HCL 0.1 MG ORAL TABLET 1 po bid 7 days, then 1/2 t ab po bid 7 days CLONIDINE HCL 0.1 MG ORAL TABLET 884232 CLONIDIN E HCL Inactive ALLOPURINOL 300 MG ORAL TABLET Take 1 tablet by mouth daily 2012 ALLOPURINOL 300 MG ORAL TABLET 522309 ALLOPURINOL I nactive MECLIZINE HCL 25 MG ORAL TABLET 1 po tid 3 days, then 1/2 ta b tid 3 days MECLIZINE HCL 25 MG ORAL TABLET 597862 MECLIZINE HCL Inactive AMLODIPINE BESYLATE 5 MG ORAL TABLET 1 tablet by mouth daily 201 01/20/04 AMLODIPINE BESYLATE 5 MG ORAL TABLET 433624 AMLODIPINE BESYLATE Inactive KEFLEX 500 MG ORAL CAPSULE 1 po qid K EFLEX 500 MG ORAL CAPSULE 409773 CEPHALEXIN Inactive LOVENOX 100 MG/ML SUBCUTANEOUS SOLUTION One injection twice a da y LOVENOX 100 MG/ML SUBCUTANEOUS SOLUTION 289436 ENOXAPAR IN SODIUM Inactive Vital Signs Date [...] - Chem istry sodium, serum 139 mmol/L 865-122 8220/07/17 potassium, serum 4.2 mmol/L 3.5-5.2 chloride, serum 102 mmol/L 98-107 carbon dioxide, venous blood 28.9 mmol/L 21.0-32 .0 blood glucose 211 mg/dL 65-110 calcium, serum 10.6 mg/dL 8.5-10.1 urea nitrogen, blood 29 mg/dL 7-18 creatinine, serum 1.24 mg/dL 0.60-1.30 sodium, serum 141 mmol/L 060-915 4503/08/07 potassium, serum 4.5 mmol/L 3.5-5.2 chloride, serum [...] ... - Chemistry sodium, serum 144 mmol/L 958-163 8605/06/12 carbon dioxide, venous blood 26.6 mmol/L 21.0-32 [...] 1.0-3.5 Encounters Code Encounter Date Provider Facility CPT-19140 Level 3 Est. Patient 18:25:53 CDT Mitch luis [facility] CPT-99674 Level 3 Est. Patient 19:43:34 CDT Mitch Castellano janelle [facility] CPT-05871 Level 4 Est. Patient 09:30:18 CDT Mitch Arnol luis [facility] CPT-49076 Level 3 Est. Patient 15:10:14 CDT Joe Gomez courtangela [facility] CPT-50497 Level 3 Est. Patient 15:03:46 CDT Joe Jason [address]un[address] [facility] CPT-96843 Level 3 Est. Patient 14:21:06 CDT Mitch Ambrose Nona luis [facility] CPT-65570 Level 3 Est. Patient 14:52:06 CDT Joe [address] [facility] CPT-37486 Level 3 Est. Patient 09:34:30 RESIDENT ASSISTANT CNA Mitch luis [facility] CPT-59250 Level 3 Est. Patient 09:37:15 CDT Mitch Castellano janelle [facility] CPT-79269 Level 3 Est. Patient 17:01:00 RESIDENT ASSISTANT CNA Mitch luis [facility] CPT-14445 Level 3 Est. Patient 13:53:19 RESIDENT ASSISTANT CNA Mitch luis [facility] CPT-71696 Level 3 Est. Patient 19:19:37 RESIDENT ASSISTANT CNA Mitch luis [facility] CPT-22253 Level 3 Est. Patient 13:25:53 RESIDENT ASSISTANT CNA Tavo toure MD [facility] CPT-41054 Level 3 Est. Patient 18:17:28 CDT Mitch luis [facility] CPT-19366 Level 3 Est. Patient 15:22:57 CDT Mitch luis [facility] CPT-15767 Level 3 Est. Patient 18:21:50 CDT Mitch luis [facility] CPT-00446 Level 3 Est. Patient 18:20:38 CDT Mitch luis [facility] CPT-39014 Level 3 Est. Patient 15:37:55 CDT Mitch luis [facility] CPT-42479 Level 2 Est. Patient 15:54:44 CDT Carmine benton MD [facility] CPT-02395 Level 3 Est. Patient 21:46:01 RESIDENT ASSISTANT CNA Mitch luis [facility] CPT-95844 Level 3 Est. Patient 22:15:50 CDT Mitch luis [facility] CPT-76289 Level 3 Est. Patient 10:48:15 CDT Mitch luis [facility] CPT-67709 Level 3 Est. Patient 23:20:57 CDT Tavo toure MD [facility] CPT-11141 Level 3 Est. Patient 16:26:13 CDT Mitch luis [facility] Procedures Code Procedure Name Date Entry Date Standard Desc ription CPT-51679 Venipuncture Draw Fee 09:26:17 CDT CPT-02798 PT/INR - LAB USE ONLY 13:32:49 RESIDENT ASSISTANT CNA CPT-21521 Venipuncture Draw Fee 13:32:49 RESIDENT ASSISTANT CNA CPT-55295 PT/INR - LAB USE ONLY 10:34:49 RESIDENT ASSISTANT CNA CPT-86430 Venipuncture Draw Fee 10:34:48 RESIDENT ASSISTANT CNA CPT-58528 PT/INR - LAB USE ONLY 09:22:03 RESIDENT ASSISTANT CNA CPT-05487 Venipuncture Draw Fee 09:22:02 RESIDENT ASSISTANT CNA CPT-37266 Hemoccult IFOBT - LAB USE ONLY 10:27:22 CDT CPT-55796 Venipuncture Draw Fee 08:27:08 CDT CPT-86435 Liver Profile - LAB USE ONLY 08:27:07 CDT 2 CPT-25512 Microalbumin - LAB USE ONLY 08:27:07 CDT 20 25/05/09 CPT-51509 PT/INR - LAB USE ONLY 08:27:07 CDT CPT-44961 HGBA1C - LAB USE ONLY 08:27:07 CDT CPT-98653 CBC - LAB USE ONLY 08:27:07 CDT CPT-48355 Venipuncture Draw Fee 11:09:14 CDT CPT-03917 Venipuncture Draw Fee 08:32:21 RESIDENT ASSISTANT CNA CPT-69608 Venipuncture Draw Fee 09:38:56 RESIDENT ASSISTANT CNA CPT-34758 No Charge Offi Visit 21:36:07 CDT 1 CPT-69819 Venipuncture Draw Fee 10:13:28 RESIDENT ASSISTANT CNA CPT-20145 Venipuncture Draw Fee 08:31:11 CDT CPT-75575 Aspir/Inject Med Joint 18:17:28 CDT CPT-75166 Venipuncture Draw Fee 10:13:30 CDT CPT-16427 Venipuncture Draw Fee 08:31:43 RESIDENT ASSISTANT CNA CPT-JTINJ Joint Injection 18:34:50 CDT CPT-40051 Knee 3V 12:25:09 CDT CPT-55468 Venipuncture Draw Fee 12:15:57 CDT CPT-060 Medical Surveillance Exam 21:31:43 CDT 2011 CPT-59351 Venipuncture Draw Fee 08:32:05 RESIDENT ASSISTANT CNA CPT-OV Office Visit 18:19:06 CDT
--- OUTSIDE RECORDS SUMMARY | 2020-01-18 12:02 | XMS REPORT | Clinical Summary ---
Author Author Admin, Mitch Leon Organization [facility] Address Unknown Phone Unavailable Allergies, Adverse [...] Coronary atherosclerosis of unspecified type of vessel, nenana or graft EDEMA 782.3 Resolved Mitch Urbina [...] ( 6mg total ) 2015 WARFARIN SODIUM 16643309242 Active Domi Rivera MA Acti ve INVOKANA 100 MG ORAL TABS 1 tablet orally daily CANAGLIFLOZIN 86554738090 Active Kathie Juan RPT,RMA Active MINOXIDIL 2.5 MG TABS 1 tablet daily for high blood pressure 10/23 MINOXIDIL 93618061256 Active Mitch Urbina DO Active AMLODIPINE BESYLATE 5 MG TABS 1 tablet by mouth daily AMLODIPINE BESYLATE 85199830672 Active Domi Rivera MA Active MECLIZINE HCL 25 MG TAB 1 po tid 3 days, then 1/2 tab tid 3 days MECLIZINE HCL 63828323776 No Longer Active Corey SEGURA Active ALLOPURINOL 300 MG TABS Take 1 tablet by mouth daily 2 ALLOPURINOL 32938381942 No Longer Active Corey SEGURA Activ e CLONIDINE HCL 0.1 MG TABS 1 po bid 7 days, then 1/2 tab po b id 7 days CLONIDINE HCL 17903782290 No Longer Active Corey SEGURA Active COUMADIN 5 MG TABS 1 tab PO daily WARFARIN SODIUM 43716379141 Active Domi Rivera MA Active COUMADIN 4 MG TABS 1 tablet daily WARFARIN SODI UM 09688226602 No Longer Active Corey SEGURA Active POLYTRIM 83995-8.1 UNIT/ML-% SOLN 1 drop in affected e ye every 3 hours while awake x 7 days POLYMYXIN B-TRIMETHOPRIM 51298025792 N o Longer Active Corey SEGURA Active LOSARTAN POTASSIUM-HCTZ 100-12.5 MG TABS 1 by mouth da rocky for high blood pressure LOSARTAN POTASSIUM-HCTZ 49128480543 Active Domi Rivera MA Active LISINOPRIL-HYDROCHLOROTHIAZIDE 20-12.5 MG TABS 1 tab by mouth da rocky LISINOPRIL-HYDROCHLOROTHIAZIDE 97824277773 No Longer Active Mitch luis DO Active LISINOPRIL 20 MG TABS 1 tab po at HS LISINOPRIL 68967248537 No Longer Active Mitch Urbina DO Active COUMADIN 5 MG TABS 1 by mouth every other day WARFARIN SODIUM 89974492771 No Longer Active Mitch Urbina DO Active COUMADIN 6 MG TABS 1 by mouth every other day WARFARIN SODIUM 33991754957 No Longer Active Mitch Urbina DO Active COLCRYS 0.6 MG TABS 1 tab qid prn gout COLCHICINE 72528764217 Active Corey SEGURA Active SIMVASTATIN 40 MG TABS 1 tab daily at bedtime S IMVASTATIN 71061860375 Active Domi Rivera MA Active SIMVASTATIN 20 MG TABS 1 tab daily at bedtime S IMVASTATIN 10079197442 No Longer Active Mitch Urbina DO Active LOVENOX 100 MG/ML SC SOLN One injection twice a day 09/15/15 ENOXAPARIN SODIUM 74770393535 No Longer Active Carmine Navarrete ctive JANUVIA 50 MG TABS Take one by mouth daily DIEGO GLIPTIN PHOSPHATE 84050902894 Active Domi Rivera MA Active JANUVIA 100 MG TABS 1/2 by mouth every day DIEGO GLIPTIN PHOSPHATE 44552258800 No Longer Active Bijal Segal RN Active METFORMIN HCL 500 MG TABS 2 by mouth twice daily METFORMIN HCL 19643553591 Active Kathie Juan RPT,RMA Active GLIMEPIRIDE 4 MG TABS 1 tab po bid GLIMEPIRIDE 001301 45361 Active Kathie Juan RPT,RMA Active COLCRYS 0.6 MG TABS 1 po q 6 hours prn gout pain 03/02 COLCHICINE 00512991517 No Longer Active Camila Reese Active LISINOPRIL 5 MG TABS 1 by mouth every day LISIN OPRIL 08574496363 No Longer Active Nguyen Perez Active KLOR-CON 20 MEQ PACK Take one by mouth daily 8 POTASSIUM CHLORIDE 76323776045 No Longer Active Nguyen Perez Active FUROSEMIDE 40 MG TABS 1 by mouth daily FUROSEMI DE 78360205620 No Longer Active Nguyenmolly Perez Active PROVIGIL 200 MG TABS 1/2 tab po q day MODAFINIL 09190 773551 Active Domi Rivera MA Active PROVIGIL 100 MG TABS Take one by mouth daily MO DAFINIL 97025227045 No Longer Active Mitch Urbina DO Active BACTRIM DS 800-160 MG TAB 1 tab by mouth twice daily 2 TRIMETHOPRIM-SULFAMETHOXAZOLE 06762978046 No Longer Active Renan Hays MD Active FAMOTIDINE 20 MG TABS by mouth twice a day FAMOTI DINE 29345477643 Active Mitch Urbina DO Active ADULT ASPIRIN LOW STRENGTH 81 MG TBDP 1 by mouth every daily ASPIRIN 56087494086 Active Mitch Urbina DO Active METOPROLOL TARTRATE 50 MG TABS 1 by mouth twice daily METOPROLOL TARTRATE 41092607288 Active Domi Rivera MA Active BACTRIM DS 800-160 MG TAB 1 tab by mouth twice daily 2 BACTRIM DS 800-160 MG TAB 879237 TRIMETHOPRIM-SULFAMETHOXAZOLE Inac tive PROVIGIL 100 MG TABS Take one by mouth daily 4 PROVIGIL 100 MG TABS 465994 MODAFINIL Inactive FUROSEMIDE 40 MG TABS 1 by mouth daily FU ROSEMIDE 40 MG TABS 798746 FUROSEMIDE Inactive KLOR-CON 20 MEQ PACK Take one by mouth daily 8 KLOR-CON 20 MEQ PACK 138717 POTASSIUM CHLORIDE Inactive LISINOPRIL 5 MG TABS 1 by mouth every day LISINOPRIL 5 MG TABS 188847 LISINOPRIL Inactive COLCRYS 0.6 MG TABS 1 po q 6 hours prn gout pain 03/02 COLCRYS 0.6 MG TABS 888910 COLCHICINE Inactive JANUVIA 100 MG TABS 1/2 by mouth every day JANUVI A 100 MG TABS SITAGLIPTIN PHOSPHATE Inactive SIMVASTATIN 20 MG TABS 1 tab daily at bedtime SIMVASTATIN 20 MG TABS 814465 SIMVASTATIN Inactive COUMADIN 6 MG TABS 1 by mouth every other day COUMADIN 6 MG TABS 426895 WARFARIN SODIUM Inactive COUMADIN 5 MG TABS 1 by mouth every other day COUMADIN 5 MG TABS 082828 WARFARIN SODIUM Inactive LISINOPRIL 20 MG TABS 1 tab po at HS [place] NOPRIL 20 MG TABS 370686 LISINOPRIL Inactive LISINOPRIL-HYDROCHLOROTHIAZIDE 20-12.5 MG TABS 1 tab by mouth da rocky LISINOPRIL-HYDROCHLOROTHIAZIDE 20-12.5 MG TABS 125709 LISINOPRIL-HYDROCHLOROTHIAZIDE Inactive POLYTRIM 19342-7.1 UNIT/ML-% SOLN 1 drop in affected e ye every 3 hours while awake x 7 days POLYTRIM 58323-5.1 UNIT/ML-% SOLN 84148 7 POLYMYXIN B-TRIMETHOPRIM Inactive COUMADIN 4 MG TABS 1 tablet daily COUMADIN 4 MG TABS 864832 WARFARIN SODIUM Inactive CLONIDINE HCL 0.1 MG TABS 1 po bid 7 days, then 1/2 tab po b id 7 days CLONIDINE HCL 0.1 MG TABS 529579 CLONIDINE HCL I nactive ALLOPURINOL 300 MG TABS Take 1 tablet by mouth daily 2 ALLOPURINOL 300 MG TABS 484096 ALLOPURINOL Inactive MECLIZINE HCL 25 MG TAB 1 po tid 3 days, then 1/2 tab tid 3 days MECLIZINE HCL 25 MG TAB 883101 MECLIZINE HCL Inactive LOVENOX 100 MG/ML SC SOLN One injection twice a day 09/15/15 LOVENOX 100 MG/ML SC SOLN 307831 ENOXAPARIN SODIUM Inactive Vital Signs Date Name [...] Range Description Chart Maintenance: [facility] Chemistry occult blood, stool (E&M) Positive [...] count 276 10^3/MM^3 10*3/mm3 142-424 Lab Report: CBC, Comp. Metabolic Panel, Prostatic Specific Ag - Chemistry sodium, serum 141 mmol/L 159-326 1070/07/06 potassium, serum 4.4 mmol/L 3.5-5.2 chloride, serum [...] - Chem istry sodium, serum 136 mmol/L 050-143 5141/01/14 carbon dioxide, venous blood 25.4 mmol/L 21.0-32 [...] 7.0 % 4.3-6.0 cholesterol, serum 120 mg/dL 551-107 0209/07/06 triglyceride, serum, fasting 186 mg/dL 30-200 HDL [...] Time - Coagulati on prothrombin time (patient) 18.1 SECS s 11.1-13.4 international normalized ratio (INR) 2.2 1.0-3.5 prothrombin time (patient) 18.6 SECS s 11.1-13.4 international normalized ratio (INR) 2.3 1.0-3.5 prothrombin time (patient) 17.1 SECS s [...] 1.0-3.5 Encounters Code Encounter Date Provider Facility CPT-92202 Level 3 Est. Patient 09:34:30 HORTICULTURAL THERAPIST Mitch luis [facility] CPT-39200 Level 3 Est. Patient 09:37:15 CDT Mitch luis [facility] CPT-61304 Level 3 Est. Patient 17:01:00 HORTICULTURAL THERAPIST Mitch luis [facility] CPT-57208 Level 3 Est. Patient 13:53:19 HORTICULTURAL THERAPIST Mitch luis [facility] CPT-16699 Level 3 Est. Patient 19:19:37 HORTICULTURAL THERAPIST Mitch luis [facility] CPT-72328 Level 3 Est. Patient 13:25:53 HORTICULTURAL THERAPIST Tavo toure MD [facility] CPT-78152 Level 3 Est. Patient 18:17:28 CDT Mitch luis [facility] CPT-10341 Level 3 Est. Patient 15:22:57 CDT Mitch luis [facility] CPT-58895 Level 3 Est. Patient 18:21:50 CDT Mitch luis [facility] CPT-98234 Level 3 Est. Patient 18:20:38 CDT Mitch luis [facility] CPT-69064 Level 3 Est. Patient 15:37:55 CDT Mitch luis [facility] CPT-96197 Level 2 Est. Patient 15:54:44 CDT Carmine benton MD [facility] CPT-54147 Level 3 Est. Patient 21:46:01 HORTICULTURAL THERAPIST Mitch luis [facility] CPT-58960 Level 3 Est. Patient 22:15:50 CDT Mitch luis [facility] CPT-33354 Level 3 Est. Patient 10:48:15 CDT Mitch luis [facility] CPT-86423 Level 3 Est. Patient 23:20:57 CDT Tavo toure MD [facility] CPT-56069 Level 3 Est. Patient 16:26:13 CDT Mitch luis [facility] Procedures Code Procedure Name Date Entry Date Standard Desc ription CPT-50336 Venipuncture Draw Fee 08:32:21 HORTICULTURAL THERAPIST CPT-07606 Venipuncture Draw Fee 09:38:56 HORTICULTURAL THERAPIST CPT-72054 No Charge Offi Visit 21:36:07 CDT 1 CPT-63372 Venipuncture Draw Fee 10:13:28 HORTICULTURAL THERAPIST CPT-19620 Venipuncture Draw Fee 08:31:11 CDT CPT-66989 Aspir/Inject Med Joint 18:17:28 CDT CPT-32158 Venipuncture Draw Fee 10:13:30 CDT CPT-37566 Venipuncture Draw Fee 08:31:43 HORTICULTURAL THERAPIST CPT-JTINJ Joint Injection 18:34:50 CDT CPT-13449 Knee 3V 12:25:09 CDT CPT-03938 Venipuncture Draw Fee 12:15:57 CDT CPT-060 Medical Surveillance Exam 21:31:43 CDT 2011 CPT-09458 Venipuncture Draw Fee 08:32:05 HORTICULTURAL THERAPIST CPT-OV Office Visit 18:19:06 CDT
--- OUTSIDE RECORDS SUMMARY | 2020-01-18 12:02 | XMS REPORT | Clinical Summary ---
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 Mitch Arnol Calritos DO Osteoarthrosis, unsp ecified whether generalized or [...] Influenza Vaccination for Prophylaxis V04.81 Inactive Mitch Arnol Urbina DO Need for prophylactic vaccin ation and inoculation against influenza Hypercalcemia 275.42 Active Adrianna Isidro MA Hypercalcemia Abnormal nuclear stress test 794.39 Inactive Mitch Arnol Urbina DO Other nonspecific abnormal function stud y of cardiovascular system CELLULITIS, GROIN, LEFT ICD-682.2 Inactive Zoya ponce Arnol Urbina SEROMA ICD-998.13 Inactive Mitch Urbina DO REACTIVE HYPOGLYCEMIA ICD-251.2 Inactive Mitch Urbina DO LONG-TERM (CURRENT) USE OF ANTICOAGULANTS ICD-V58.61 Inactive Mitch Urbina DO EDEMA ICD-782.3 Inactive Mitch Arnol Urbina DIZZINESS ICD-780.4 Inactive Mitch Urbina DO 10/23 GOUT, RIGHT WRIST ICD-274.9 Inactive Mitch Grover e BRUISE ICD-924.9 Inactive Mitch Urbina DO OLECRANON BURSITIS, RIGHT ICD-726.33 Inactive Mitch Urbina DO UNSPECIFIED ANEMIA ICD-285.9 Inactive Mitch luis DO Malaise and fatigue ICD-780.79 Inactive Mitch Urbina DO Cough, chronic ICD-786.2 Inactive Mitch Urbina Ileana O Sebaceous cyst, infected ICD-706.2 Inactive Mitch Urbina DO Cellulitis ICD-682.9 Inactive Mitch Urbina DO 10/23 Influenza Vaccination for Prophylaxis ICD-V04.81 9 Inactive Bhumi Robles Abnormal nuclear stress test ICD-794.39 Gunnar Isidro MA Medication List Medication Instructions Start Date Stop Date Generic Name NDC Status Provider Patient Instruction JANUVIA TABS 50MG TAKE 1 TABLET DAILY SITAGLIPT IN PHOSPHATE 68451263889 Active Mitch Urbina DO Active INVOKANA TABS 100MG TAKE 1 TABLET DAILY CANAGLIFL OZIN 37360257393 Active Mitch Urbina DO Active AMLODIPINE BESYLATE 5 MG ORAL TABLET 1 tablet by mouth daily 201 05/19/02 AMLODIPINE BESYLATE 71747078026 No Longer Active Maria Briones Active WARFARIN TABS 1MG TAKE 2 TABLETS (2 MG) DAILY WITH THE 5 MG TABLET TO EQUAL 7 MG DAILY WARFARIN SODIUM 39858551586 Active Maria Briones Active WARFARIN SODIUM 5 MG TABS TAKE 1 TABLET DAILY W ARFARIN SODIUM 48794375231 Active Maria Rivas RN Active KEFLEX 500 MG ORAL CAPSULE 1 capsule by mouth three times da rocky x10 days CEPHALEXIN 83587965874 No Longer Active Maria landaverde RN Active METOPROLOL TARTRATE TABS 50MG TAKE 1 TABLET TWICE A DAY ([facility] WORK) METOPROLOL TARTRATE 81220305992 Active Maria Briones Active DOXAZOSIN MESYLATE 2 MG ORAL TABLET 1 po q day for pr ostate and blood pressure DOXAZOSIN MESYLATE 03490926535 Active Mitch Urbina DO Active LOSARTAN TABS 100MG TAKE 1 TABLET DAILY FOR BLOOD PRESSURE LOSARTAN POTASSIUM 24655367335 Active Maria Rivas RN Active FLUTICASONE PROPIONATE 50 MCG/ACT NASAL SUSPENSION 1 s pray each nostril twice daily for 1 week, then once daily FLUTICASONE AL OPIONATE 31928715098 Active Becky Sell [employer] WORKER Active PREDNISONE 20 MG ORAL TABLET 2 tabs daily for 3 days 1 tab d aily for 3 days PREDNISONE 72158099962 No Longer Active Becky Sell [employer] WORKER Active MINOXIDIL 2.5 MG ORAL TABLET 1 tablet twice daily for high b lood pressure MINOXIDIL 63073344042 Active Mitch Urbina DO Ac tive METFORMIN HCL ER 500 MG ORAL TABLET EXTENDED RELEASE 2 4 HOUR 2 tablets by mouth twice daily METFORMIN HCL 48431636056 Active Mitch Urbina DO Active GLIMEPIRIDE 4 MG ORAL TABLET 1 tablet by mouth twice daily f or diabetes GLIMEPIRIDE 42082626852 Active Mitch Urbina DO Active GLIMEPIRIDE 2 MG ORAL TABLET 1 po BID GLIMEPI RIDE 40021659715 No Longer Active Mitch Urbina DO Active PROVIGIL 200 MG ORAL TABLET 1/2 tab po q day MODA FINIL 46496643429 Active Maria Rivas RN Active FAMOTIDINE 20 MG ORAL TABLET by mouth twice a day 2017 FAMOTIDINE 88249856913 No Longer Active Mitch Urbina DO Active COLCRYS 0.6 MG ORAL TABLET 1 tab qid prn gout C OLCHICINE 38200751738 No Longer Active Mitch Urbina DO Active KEFLEX 500 MG ORAL CAPSULE 1 po qid CEPHALEXI N 97766722189 No Longer Active Mitch Urbina DO Active AMLODIPINE BESYLATE 5 MG ORAL TABLET 1 tablet by mouth daily 201 01/20/04 AMLODIPINE BESYLATE 36393343762 No Longer Active Joe fulton APRN Active MITIGARE 0.6 MG ORAL CAPSULE 2 capsules at onset of go ut pain, then take one capsule at 1 hour if symptoms persist. COLCHICINE 59 701951669 Active Mitch Urbina DO Active MECLIZINE HCL 25 MG ORAL TABLET 1 po tid 3 days, then 1/2 ta b tid 3 days MECLIZINE HCL 21558262286 No Longer Active Corey SEGURA Active ALLOPURINOL 300 MG ORAL TABLET Take 1 tablet by mouth daily 2012 ALLOPURINOL 04325111206 No Longer Active Corey SEGURA Active CLONIDINE HCL 0.1 MG ORAL TABLET 1 po bid 7 days, then 1/2 t ab po bid 7 days CLONIDINE HCL 48667882122 No Longer Active Corey SEGURA Active COUMADIN 4 MG ORAL TABLET 1 tablet daily WARFAR IN SODIUM 14229182105 No Longer Active Corey SEGURA Active POLYTRIM 07888-9.1 UNIT/ML-% OPHTHALMIC SOLUTION 1 rui p in affected eye every 3 hours while awake x 7 days POLYMYXIN B-TRIMETHOP RIM 58650017623 No Longer Active Corey SEGURA Active LOSARTAN POTASSIUM-HCTZ 100-12.5 MG ORAL TABLET 1 by m outh daily for high blood pressure LOSARTAN POTASSIUM-HCTZ 83418239388 No Longer A ctive Mitch Urbina DO Active LISINOPRIL-HYDROCHLOROTHIAZIDE 20-12.5 MG ORAL TABLET 1 tab by m outh daily LISINOPRIL-HYDROCHLOROTHIAZIDE 76940155324 No Longer Active Mitch Urbina DO Active LISINOPRIL 20 MG ORAL TABLET 1 tab po at HS LIS INOPRIL 14129099731 No Longer Active Mitch Urbina DO Active COUMADIN 5 MG ORAL TABLET 1 by mouth every other day 2 WARFARIN SODIUM 20886441712 No Longer Active Mitch Urbina DO Active COUMADIN 6 MG ORAL TABLET 1 by mouth every other day 2 WARFARIN SODIUM 34693110762 No Longer Active Mitch Urbina DO Active SIMVASTATIN 40 MG ORAL TABLET 1 tab daily at bedtime SIMVASTATIN 69352652843 Active Maria Rivas RN Active SIMVASTATIN 20 MG ORAL TABLET 1 tab daily at bedtime 2 SIMVASTATIN 45762766276 No Longer Active Mitch Urbina DO Active LOVENOX 100 MG/ML SUBCUTANEOUS SOLUTION One injection twice a da y ENOXAPARIN SODIUM 97243067138 No Longer Active Carmine Yusuf MD Active JANUVIA 100 MG ORAL TABLET 1/2 by mouth every day 2011 SITAGLIPTIN PHOSPHATE 22688747577 No Longer Active Bijal Segal RN Acti ve METFORMIN HCL 500 MG ORAL TABLET 2 by mouth twice daily METFORMIN HCL 50599755093 No Longer Active Renee Oconnor LPN Active COLCRYS 0.6 MG ORAL TABLET 1 po q 6 hours prn gout pain COLCHICINE 62360916239 No Longer Active Camila Reese Active LISINOPRIL 5 MG ORAL TABLET 1 by mouth every day 11/17 LISINOPRIL 30678959633 No Longer Active Nguyen Perez Active KLOR-CON 20 MEQ ORAL PACKET Take one by mouth daily 20 09/10/08 POTASSIUM CHLORIDE 45820031641 No Longer Active Nguyen Perez Active FUROSEMIDE 40 MG ORAL TABLET 1 by mouth daily F UROSEMIDE 85904068152 No Longer Active Nguyen Perez Active PROVIGIL 100 MG ORAL TABLET Take one by mouth daily 20 08/20/04 MODAFINIL 94920230581 No Longer Active Mitch Urbina DO Active BACTRIM DS 800-160 MG ORAL TABLET 1 tab by mouth twice daily 201 10/19/09 TRIMETHOPRIM-SULFAMETHOXAZOLE 71594235775 No Longer Active C alberto Hays MD Active ADULT ASPIRIN LOW STRENGTH 81 MG ORAL TABLET DISINTEGR ATING 1 by mouth every daily ASPIRIN 74366596486 Active Mitch W Carlitos DO Ac tive BACTRIM DS 800-160 MG ORAL TABLET 1 tab by mouth twice daily 201 10/19/09 BACTRIM DS 800-160 MG ORAL TABLET 126494 TRIMETHOPRIM-SULFAMETHOXAZOLE Inactive PROVIGIL 100 MG ORAL TABLET Take one by mouth daily 08/20/04 PROVIGIL 100 MG ORAL TABLET 620285 MODAFINIL Inactive FUROSEMIDE 40 MG ORAL TABLET 1 by mouth daily FUROSEMIDE 40 MG ORAL TABLET 607262 FUROSEMIDE Inactive KLOR-CON 20 MEQ ORAL PACKET Take one by mouth daily 09/10/08 KLOR- CON 20 MEQ ORAL PACKET 6029167 POTASSIUM CHLORIDE Inactive LISINOPRIL 5 MG ORAL TABLET 1 by mouth every day 11/17 LISINOPRIL 5 MG ORAL TABLET 836223 LISINOPRIL Inactive COLCRYS 0.6 MG ORAL TABLET 1 po q 6 hours prn gout pain COLCRYS 0.6 MG ORAL TABLET 414198 COLCHICINE Inactive JANUVIA 100 MG ORAL TABLET 1/2 by mouth every day 2011 JANUVIA 100 MG ORAL TABLET SITAGLIPTIN PHOSPHATE Inactive SIMVASTATIN 20 MG ORAL TABLET 1 tab daily at bedtime 2 SIMVASTATIN 20 MG ORAL TABLET 805687 SIMVASTATIN Inactive COUMADIN 6 MG ORAL TABLET 1 by mouth every other day 2 COUMADIN 6 MG ORAL TABLET 236102 WARFARIN SODIUM Inactive COUMADIN 5 MG ORAL TABLET 1 by mouth every other day 2 COUMADIN 5 MG ORAL TABLET 299673 WARFARIN SODIUM Inactive LISINOPRIL 20 MG ORAL TABLET 1 tab po at HS LISINOPRIL 20 MG ORAL TABLET 827115 LISINOPRIL Inactive LISINOPRIL-HYDROCHLOROTHIAZIDE 20-12.5 MG ORAL TABLET 1 tab by m outh daily LISINOPRIL-HYDROCHLOROTHIAZIDE 20-12.5 MG ORAL TABLET 436047 LISINOPRIL-HYDROCHLOROTHIAZIDE Inactive POLYTRIM 68329-8.1 UNIT/ML-% OPHTHALMIC SOLUTION 1 rui p in affected eye every 3 hours while awake x 7 days POLYTRIM 1000 0-0.1 UNIT/ML-% OPHTHALMIC SOLUTION 987698 POLYMYXIN B-TRIMETHOPRIM Inactive COUMADIN 4 MG ORAL TABLET 1 tablet daily COUMADIN 4 MG ORAL TABLET 922530 WARFARIN SODIUM Inactive CLONIDINE HCL 0.1 MG ORAL TABLET 1 po bid 7 days, then 1/2 t ab po bid 7 days CLONIDINE HCL 0.1 MG ORAL TABLET 799101 CLONIDIN E HCL Inactive ALLOPURINOL 300 MG ORAL TABLET Take 1 tablet by mouth daily 2012 ALLOPURINOL 300 MG ORAL TABLET 196888 ALLOPURINOL I nactive MECLIZINE HCL 25 MG ORAL TABLET 1 po tid 3 days, then 1/2 ta b tid 3 days MECLIZINE HCL 25 MG ORAL TABLET 294615 MECLIZINE HCL Inactive AMLODIPINE BESYLATE 5 MG ORAL TABLET 1 tablet by mouth daily 201 01/20/04 AMLODIPINE BESYLATE 5 MG ORAL TABLET 322101 AMLODIPINE BESYLATE Inactive KEFLEX 500 MG ORAL CAPSULE 1 po qid K EFLEX 500 MG ORAL CAPSULE 758670 CEPHALEXIN Inactive COLCRYS 0.6 MG ORAL TABLET 1 tab qid prn gout COLCRYS 0.6 MG ORAL TABLET 093242 COLCHICINE Inactive FAMOTIDINE 20 MG ORAL TABLET by mouth twice a day 2017 FAMOTIDINE 20 MG ORAL TABLET 200469 FAMOTIDINE Inactive GLIMEPIRIDE 2 MG ORAL TABLET 1 po BID GLIMEPIRIDE 2 MG ORAL TABLET 262825 GLIMEPIRIDE Inactive AMLODIPINE BESYLATE 5 MG ORAL TABLET 1 tablet by mouth daily 201 05/19/02 AMLODIPINE BESYLATE 5 MG ORAL TABLET 138547 AMLODIPINE BESYLATE Inactive LOVENOX 100 MG/ML SUBCUTANEOUS SOLUTION One injection twice a da y LOVENOX 100 MG/ML SUBCUTANEOUS SOLUTION 173077 ENOXAPAR IN SODIUM Inactive PREDNISONE 20 MG ORAL TABLET 2 tabs daily for 3 days 1 tab d aily for 3 days PREDNISONE 20 MG ORAL TABLET 746440 PREDNISONE Inactive KEFLEX 500 MG ORAL CAPSULE 1 capsule by mouth three times da rocky x10 days KEFLEX 500 MG ORAL CAPSULE 896792 CEPHALEXIN I nactive Advance Directives Directive Description [...] - Chem istry sodium, serum 138 mmol/L 025-705 2525/11/07 potassium, serum 4.5 mmol/L 3.5-5.2 chloride, serum [...] Panel - Chemistry sodium, serum 140 mmol/L 979-873 2366/11/01 carbon dioxide, venous blood 28.6 mmol/L 21.0-32 [...] mg/dL Encounters Code Encounter Date Provider Facility CPT-34009 [id number] Vst-Est Level IV 16:21:22 CDT Bru ce W [facility] CPT-01360 Level 3 Est. Patient 15:18:36 CDT Becky anderson APRN [facility] CPT-57658 [id number] Vst-Est Level IV 10:06:35 CDT Bru ce W [facility] CPT-02087 [id number] Vst-Est Level IV 10:52:00 CARDIOLOGY SPECIALIST Bru ce W [facility] CPT-58172 Level 3 Est. Patient 18:25:53 CDT Mitch Castellano [facility] CPT-28015 Level 3 Est. Patient 19:43:34 CDT Mitch W Nona luis [facility] CPT-79982 Level 4 Est. Patient 09:30:18 CDT Mitch luis [facility] CPT-11344 Level 3 Est. Patient 15:10:14 CDT Devonjustincarlitos [facility]-86209 Level 3 Est. Patient 15:03:46 CDT Devonsonya Jason On license of [facility]-06706 Level 3 Est. Patient 14:21:06 CDT Mitch luis [facility] CPT-92733 Level 3 Est. Patient 14:52:06 CDT Joe Jason On license of [facility]-83385 Level 3 Est. Patient 09:34:30 CARDIOLOGY SPECIALIST Mitch luis [facility]-01077 Level 3 Est. Patient 09:37:15 CDT Mitch luis [facility] CPT-44773 Level 3 Est. Patient 17:01:00 CARDIOLOGY SPECIALIST Mitch luis [facility] CPT-17096 Level 3 Est. Patient 13:53:19 CARDIOLOGY SPECIALIST Mitch luis [facility] CPT-41593 Level 3 Est. Patient 19:19:37 CARDIOLOGY SPECIALIST Mitch luis [facility] CPT-92922 Level 3 Est. Patient 13:25:53 CARDIOLOGY SPECIALIST Tavo toure MD [facility] CPT-42999 Level 3 Est. Patient 18:17:28 CDT Mitch luis [facility] CPT-30586 Level 3 Est. Patient 15:22:57 CDT Mitch luis [facility] CPT-95131 Level 3 Est. Patient 18:21:50 CDT Mitch Ambrose L janelle [facility] CPT-95569 Level 3 Est. Patient 18:20:38 CDT Mitch luis [facility] CPT-39710 Level 3 Est. Patient 15:37:55 CDT Mitch luis [facility] CPT-35210 Level 2 Est. Patient 15:54:44 CDT Carmine benton MD [facility] CPT-65092 Level 3 Est. Patient 21:46:01 CARDIOLOGY SPECIALIST Mitch luis [facility] CPT-89113 Level 3 Est. Patient 22:15:50 CDT Mitch luis [facility] CPT-83731 Level 3 Est. Patient 10:48:15 CDT Mitch luis [facility] CPT-89881 Level 3 Est. Patient 23:20:57 CDT Tavo toure MD [facility] CPT-88261 Level 3 Est. Patient 16:26:13 CDT Mitch luis [facility] Procedures Code Procedure Name Date Entry Date Standard Desc ription CPT-49901 Venipuncture Draw Fee 11:20:39 CARDIOLOGY SPECIALIST CPT-81947 Venipuncture Draw Fee 18:03:01 CARDIOLOGY SPECIALIST CPT-46310 Venipuncture Draw Fee 10:44:42 CARDIOLOGY SPECIALIST CPT-59814 Venipuncture Draw Fee 14:46:55 CARDIOLOGY SPECIALIST CPT-75492 Venipuncture Draw Fee 08:26:21 CDT CPT-29989 Venous Duplex Left Leg XRAY USE ONLY 10:43:10 CDT CPT-59760 Venipuncture Draw Fee 17:04:55 CDT CPT-99455 Venipuncture Draw Fee 17:20:50 CDT CPT-02328 Venipuncture Draw Fee 18:00:48 CDT CPT-91899 Venipuncture Draw Fee 14:56:20 CDT CPT-JTINJ Asp/Joint Injection 18:47:02 CDT CPT-29055 Venipuncture Draw Fee 09:26:17 CDT CPT-19829 PT/INR - LAB USE ONLY 13:32:49 CARDIOLOGY SPECIALIST CPT-16359 Venipuncture Draw Fee 13:32:49 CARDIOLOGY SPECIALIST CPT-22516 PT/INR - LAB USE ONLY 10:34:49 CARDIOLOGY SPECIALIST CPT-77116 Venipuncture Draw Fee 10:34:48 CARDIOLOGY SPECIALIST CPT-98096 PT/INR - LAB USE ONLY 09:22:03 CARDIOLOGY SPECIALIST CPT-55504 Venipuncture Draw Fee 09:22:02 CARDIOLOGY SPECIALIST CPT-22783 Hemoccult IFOBT - LAB USE ONLY 10:27:22 CDT CPT-04725 Venipuncture Draw Fee 08:27:08 CDT CPT-45734 Liver Profile - LAB USE ONLY 08:27:07 CDT 2 CPT-10892 Microalbumin - LAB USE ONLY 08:27:07 CDT 20 25/05/09 CPT-46237 PT/INR - LAB USE ONLY 08:27:07 CDT CPT-80585 HGBA1C - LAB USE ONLY 08:27:07 CDT CPT-87631 CBC - LAB USE ONLY 08:27:07 CDT CPT-87413 Venipuncture Draw Fee 11:09:14 CDT CPT-92980 Venipuncture Draw Fee 08:32:21 CARDIOLOGY SPECIALIST CPT-18697 Venipuncture Draw Fee 09:38:56 CARDIOLOGY SPECIALIST CPT-09331 No Charge Offi Visit 21:36:07 CDT 1 CPT-66874 Venipuncture Draw Fee 10:13:28 CARDIOLOGY SPECIALIST CPT-05421 Venipuncture Draw Fee 08:31:11 CDT CPT-69473 Aspir/Inject Med Joint 18:17:28 CDT CPT-73183 Venipuncture Draw Fee 10:13:30 CDT CPT-58141 Venipuncture Draw Fee 08:31:43 CARDIOLOGY SPECIALIST CPT-JTINJ Joint Injection 18:34:50 CDT CPT-75884 Knee 3V 12:25:09 CDT CPT-86242 Venipuncture Draw Fee 12:15:57 CDT CPT-060 Medical Surveillance Exam 21:31:43 CDT 2011 CPT-84026 Venipuncture Draw Fee 08:32:05 CARDIOLOGY SPECIALIST CPT-OV Office Visit 18:19:06 CDT
--- OUTSIDE RECORDS SUMMARY | 2020-01-18 12:03 | XMS REPORT | Clinical Summary ---
Author Author Admin, Mitch Leon Organization [facility] Address Unknown Phone Unavailable Allergies, Adverse [...] Coronary atherosclerosis of unspecified type of vessel, [place] or graft EDEMA 782.3 Resolved Mitch [...] 30-34.9) Active Mitch Urbina DO Obesity, unspecified Bronchitis, allergic 493.90 Active Becky Sell A PRN Asthma, unspecified CELLULITIS, GROIN, LEFT ICD-682.2 Inactive Bruc [...] Generic Name NDC Status Provider Patient Instruction FLUTICASONE PROPIONATE 50 MCG/ACT NASAL SUSPENSION 1 s pray each nostril twice daily for 1 week, then once daily FLUTICASONE AL OPIONATE 96601071459 Active Becky Sell [employer]GER Active PREDNISONE 20 MG ORAL TABLET 2 tabs daily for 3 days 1 tab d aily for 3 days PREDNISONE 61014199882 Active Becky Sell [employer]Y MANAGER Active MINOXIDIL 2.5 MG ORAL TABLET 1 tablet twice daily for high b lood pressure MINOXIDIL 08602339007 Active Mitch Urbina DO Ac tive METFORMIN HCL ER 500 MG ORAL TABLET EXTENDED RELEASE 2 4 HOUR 2 tablets by mouth twice daily METFORMIN HCL 26083236342 Active Mitch Urbina DO Active GLIMEPIRIDE 4 MG ORAL TABLET 1 tablet by mouth twice daily f or diabetes GLIMEPIRIDE 33976112191 Active Mitch Urbina DO Active GLIMEPIRIDE 2 MG ORAL TABLET 1 po BID GLIMEPI RIDE 24712460367 No Longer Active Mitch Urbina DO Active AMLODIPINE BESYLATE 5 MG ORAL TABLET 1 tablet by mouth daily AMLODIPINE BESYLATE 82680629244 Active Mitch Urbina DO Active PROVIGIL 200 MG ORAL TABLET 1/2 tab po q day MODA FINIL 76928473657 Active Renee Oconnor LPN Active FAMOTIDINE 20 MG ORAL TABLET by mouth twice a day 2017 FAMOTIDINE 58195220530 No Longer Active Mitch Urbina DO Active COLCRYS 0.6 MG ORAL TABLET 1 tab qid prn gout C OLCHICINE 29277621766 No Longer Active Mitch Urbina DO Active KEFLEX 500 MG ORAL CAPSULE 1 po qid CEPHALEXI N 24890226771 No Longer Active Mitch Urbina DO Active LOSARTAN POTASSIUM 100 MG ORAL TABLET 1 pill by mouth daily, for blood pressure LOSARTAN POTASSIUM 22305476367 Active Ana Ocampo Active AMLODIPINE BESYLATE 5 MG ORAL TABLET 1 tablet by mouth daily 201 01/20/04 AMLODIPINE BESYLATE 56942253909 No Longer Active Joe fulton APRN Active MITIGARE 0.6 MG ORAL CAPSULE 2 capsules at onset of go ut pain, then take one capsule at 1 hour if symptoms persist. COLCHICINE 59 488405321 Active Mitch Urbina DO Active COUMADIN 1 MG ORAL TABLET 2 tabs orally daily with the 5mg tab to equal 7mg daily WARFARIN SODIUM 89141884674 Active Maria Briones Active INVOKANA 100 MG ORAL TABLET 1 tablet orally daily CANAGLIFLOZIN 65709571527 Active Mitch Urbina DO Active MECLIZINE HCL 25 MG ORAL TABLET 1 po tid 3 days, then 1/2 ta b tid 3 days MECLIZINE HCL 95280391553 No Longer Active Corey SEGURA Active ALLOPURINOL 300 MG ORAL TABLET Take 1 tablet by mouth daily 2012 ALLOPURINOL 67610801165 No Longer Active Corey SEGURA Active CLONIDINE HCL 0.1 MG ORAL TABLET 1 po bid 7 days, then 1/2 t ab po bid 7 days CLONIDINE HCL 45986627856 No Longer Active Corey SEGURA Active COUMADIN 5 MG ORAL TABLET 1 tab PO daily WARFAR IN SODIUM 69531867671 Active Renee Oconnor LPN Active COUMADIN 4 MG ORAL TABLET 1 tablet daily WARFAR IN SODIUM 05484991193 No Longer Active Corey SEGURA Active POLYTRIM 03331-8.1 UNIT/ML-% OPHTHALMIC SOLUTION 1 rui p in affected eye every 3 hours while awake x 7 days POLYMYXIN B-TRIMETHOP RIM 28502742951 No Longer Active Corey SEGURA Active LOSARTAN POTASSIUM-HCTZ 100-12.5 MG ORAL TABLET 1 by m outh daily for high blood pressure LOSARTAN POTASSIUM-HCTZ 59786090476 No Longer A ctive Mitch Urbina DO Active LISINOPRIL-HYDROCHLOROTHIAZIDE 20-12.5 MG ORAL TABLET 1 tab by m outh daily LISINOPRIL-HYDROCHLOROTHIAZIDE 35636544383 No Longer Active Mitch Urbina DO Active LISINOPRIL 20 MG ORAL TABLET 1 tab po at HS LIS INOPRIL 97208374311 No Longer Active Mitch Urbina DO Active COUMADIN 5 MG ORAL TABLET 1 by mouth every other day 2 WARFARIN SODIUM 34349839621 No Longer Active Mitch Urbina DO Active COUMADIN 6 MG ORAL TABLET 1 by mouth every other day 2 WARFARIN SODIUM 60487701978 No Longer Active Mitch Urbina DO Active SIMVASTATIN 40 MG ORAL TABLET 1 tab daily at bedtime SIMVASTATIN 29320637991 Active Maria Rivas RN Active SIMVASTATIN 20 MG ORAL TABLET 1 tab daily at bedtime 2 SIMVASTATIN 47324907882 No Longer Active Mitch Urbina DO Active LOVENOX 100 MG/ML SUBCUTANEOUS SOLUTION One injection twice a da y ENOXAPARIN SODIUM 50884085715 No Longer Active Carmine Yusuf MD Active JANUVIA 50 MG ORAL TABLET Take one by mouth daily SITAGLIPTIN PHOSPHATE 00142991481 Active Renee Oconnor LPN Active JANUVIA 100 MG ORAL TABLET 1/2 by mouth every day 2011 SITAGLIPTIN PHOSPHATE 38899530660 No Longer Active Bijal Segal RN Acti ve METFORMIN HCL 500 MG ORAL TABLET 2 by mouth twice daily METFORMIN HCL 56180279369 No Longer Active Renee Oconnor LPN Active COLCRYS 0.6 MG ORAL TABLET 1 po q 6 hours prn gout pain COLCHICINE 45968716946 No Longer Active Camila Reese Active LISINOPRIL 5 MG ORAL TABLET 1 by mouth every day 11/17 LISINOPRIL 67661344130 No Longer Active Nguyen Coekman Active KLOR-CON 20 MEQ ORAL PACKET Take one by mouth daily 09/10/08 POTASSIUM CHLORIDE 54597897429 No Longer Active Nguyen Coekman Active FUROSEMIDE 40 MG ORAL TABLET 1 by mouth daily F UROSEMIDE 54057766144 No Longer Active Nguyen Coekman Active PROVIGIL 100 MG ORAL TABLET Take one by mouth daily 08/20/04 MODAFINIL 90041185158 No Longer Active Mitch Urbina DO Active BACTRIM DS 800-160 MG ORAL TABLET 1 tab by mouth twice daily 201 10/19/09 TRIMETHOPRIM-SULFAMETHOXAZOLE 40789763973 No Longer Active Elian Hays MD Active ADULT ASPIRIN LOW STRENGTH 81 MG ORAL TABLET DISINTEGR ATING 1 by mouth every daily ASPIRIN 78817134940 Active Mitch Urbina DO Ac tive METOPROLOL TARTRATE 50 MG ORAL TABLET 1 by mouth twice daily METOPROLOL TARTRATE 17868835030 Active Maria Rivas RN Ac tive BACTRIM DS 800-160 MG ORAL TABLET 1 tab by mouth twice daily 201 10/19/09 BACTRIM DS 800-160 MG ORAL TABLET 282379 TRIMETHOPRIM-SULFAMETHOXAZOLE Inactive PROVIGIL 100 MG ORAL TABLET Take one by mouth daily 08/20/04 PROVIGIL 100 MG ORAL TABLET 712803 MODAFINIL Inactive FUROSEMIDE 40 MG ORAL TABLET 1 by mouth daily FUROSEMIDE 40 MG ORAL TABLET 518385 FUROSEMIDE Inactive KLOR-CON 20 MEQ ORAL PACKET Take one by mouth daily 09/10/08 KLOR- CON 20 MEQ ORAL PACKET 3492743 POTASSIUM CHLORIDE Inactive LISINOPRIL 5 MG ORAL TABLET 1 by mouth every day 11/17 LISINOPRIL 5 MG ORAL TABLET 949208 LISINOPRIL Inactive COLCRYS 0.6 MG ORAL TABLET 1 po q 6 hours prn gout pain COLCRYS 0.6 MG ORAL TABLET 837023 COLCHICINE Inactive JANUVIA 100 MG ORAL TABLET 1/2 by mouth every day 2011 JANUVIA 100 MG ORAL TABLET SITAGLIPTIN PHOSPHATE Inactive SIMVASTATIN 20 MG ORAL TABLET 1 tab daily at bedtime 2 SIMVASTATIN 20 MG ORAL TABLET 870891 SIMVASTATIN Inactive COUMADIN 6 MG ORAL TABLET 1 by mouth every other day 2 COUMADIN 6 MG ORAL TABLET 821366 WARFARIN SODIUM Inactive COUMADIN 5 MG ORAL TABLET 1 by mouth every other day 2 COUMADIN 5 MG ORAL TABLET 939601 WARFARIN SODIUM Inactive LISINOPRIL 20 MG ORAL TABLET 1 tab po at HS LISINOPRIL 20 MG ORAL TABLET 948245 LISINOPRIL Inactive LISINOPRIL-HYDROCHLOROTHIAZIDE 20-12.5 MG ORAL TABLET 1 tab by m outh daily LISINOPRIL-HYDROCHLOROTHIAZIDE 20-12.5 MG ORAL TABLET 625277 LISINOPRIL-HYDROCHLOROTHIAZIDE Inactive POLYTRIM 84206-0.1 UNIT/ML-% OPHTHALMIC SOLUTION 1 rui p in affected eye every 3 hours while awake x 7 days POLYTRIM 1000 0-0.1 UNIT/ML-% OPHTHALMIC SOLUTION 703118 POLYMYXIN B-TRIMETHOPRIM Inactive COUMADIN 4 MG ORAL TABLET 1 tablet daily COUMADIN 4 MG ORAL TABLET 080906 WARFARIN SODIUM Inactive CLONIDINE HCL 0.1 MG ORAL TABLET 1 po bid 7 days, then 1/2 t ab po bid 7 days CLONIDINE HCL 0.1 MG ORAL TABLET 622150 CLONIDIN E HCL Inactive ALLOPURINOL 300 MG ORAL TABLET Take 1 tablet by mouth daily 2012 ALLOPURINOL 300 MG ORAL TABLET 049623 ALLOPURINOL I nactive MECLIZINE HCL 25 MG ORAL TABLET 1 po tid 3 days, then 1/2 ta b tid 3 days MECLIZINE HCL 25 MG ORAL TABLET 479083 MECLIZINE HCL Inactive AMLODIPINE BESYLATE 5 MG ORAL TABLET 1 tablet by mouth daily 201 01/20/04 AMLODIPINE BESYLATE 5 MG ORAL TABLET 120712 AMLODIPINE BESYLATE Inactive KEFLEX 500 MG ORAL CAPSULE 1 po qid K EFLEX 500 MG ORAL CAPSULE 360768 CEPHALEXIN Inactive COLCRYS 0.6 MG ORAL TABLET 1 tab qid prn gout COLCRYS 0.6 MG ORAL TABLET 783917 COLCHICINE Inactive FAMOTIDINE 20 MG ORAL TABLET by mouth twice a day 2017 FAMOTIDINE 20 MG ORAL TABLET 859759 FAMOTIDINE Inactive GLIMEPIRIDE 2 MG ORAL TABLET 1 po BID GLIMEPIRIDE 2 MG ORAL TABLET 477414 GLIMEPIRIDE Inactive LOVENOX 100 MG/ML SUBCUTANEOUS SOLUTION One injection twice a da y LOVENOX 100 MG/ML SUBCUTANEOUS SOLUTION 285180 ENOXAPAR IN SODIUM Inactive Advance Directives Directive Description Start Date PERMISSION TO SHARE Vital Signs Date Name Value Unit Range Description blood pressure, diastolic, second observation 82 m [...] 11 .6-14.8 platelet count 238 10^3/MM^3 10*3/mm3 722-150 4861/03/29 leukocyte count, blood 6.7 10^3/MM^3 10*3/mm3 4.6-10.2 [...] mg/dL Encounters Code Encounter Date Provider Facility CPT-20615 Level 3 Est. Patient 15:18:36 [facility] [id number] Vst-Est Level IV 10:06:35 CDT Stephy Ambrose [facility] CPT-71022 [id number] Vst-Est Level IV 10:52:00 SPECIAL POPULATION PARAPROFESSIONAL Stephy Ambrose [facility] CPT-89746 Level 3 Est. Patient 18:25:53 CDT Mitch luis [facility] CPT-46924 Level 3 Est. Patient 19:43:34 CDT Mitch luis [facility] CPT-53600 Level 4 Est. Patient 09:30:18 CDT Mitch W L janelle [facility] CPT-27283 Level 3 Est. Patient 15:10:14 CDT Joe kamara [facility] CPT-22540 Level 3 Est. Patient 15:03:46 CDT Joe kamara [facility]-77147 Level 3 Est. Patient 14:21:06 CDT Mitch Ambrose L janelle [facility]-14260 Level 3 Est. Patient 14:52:06 CDT Devonjustincarlitos kamara [facility]-80775 Level 3 Est. Patient 09:34:30 SPECIAL POPULATION PARAPROFESSIONAL Mitch Ambrose L janelle [facility]-64294 Level 3 Est. Patient 09:37:15 CDT Mitch Ambrose L janelle [facility]-15684 Level 3 Est. Patient 17:01:00 SPECIAL POPULATION PARAPROFESSIONAL Mitch Ambrose L janelle [facility] CPT-68430 Level 3 Est. Patient 13:53:19 SPECIAL POPULATION PARAPROFESSIONAL Mitch Ambrose L janelle [facility] CPT-65570 Level 3 Est. Patient 19:19:37 SPECIAL POPULATION PARAPROFESSIONAL Mitch W L janelle [facility] CPT-63566 Level 3 Est. Patient 13:25:53 SPECIAL POPULATION PARAPROFESSIONAL Tavo toure MD [facility]-75719 Level 3 Est. Patient 18:17:28 CDT Mitch W L janelle [facility] CPT-73937 Level 3 Est. Patient 15:22:57 CDT Mitch W L janelle [facility] CPT-83891 Level 3 Est. Patient 18:21:50 CDT Mitch W L ee [facility] CPT-48426 Level 3 Est. Patient 18:20:38 CDT Mitch W L ee [facility] CPT-12871 Level 3 Est. Patient 15:37:55 CDT Mitch Arnol Nona janelle [facility] CPT-34642 Level 2 Est. Patient 15:54:44 CDT Carmine benton MD [facility] CPT-51562 Level 3 Est. Patient 21:46:01 SPECIAL POPULATION PARAPROFESSIONAL Mitch luis [facility] CPT-59866 Level 3 Est. Patient 22:15:50 CDT Mitch luis [facility] CPT-86299 Level 3 Est. Patient 10:48:15 CDT Mitch luis [facility] CPT-62585 Level 3 Est. Patient 23:20:57 CDT Tavo toure MD [facility] CPT-88186 Level 3 Est. Patient 16:26:13 CDT Mitch luis [facility] Procedures Code Procedure Name Date Entry Date Standard Desc ription CPT-JTINJ Asp/Joint Injection 18:47:02 CDT CPT-43090 Venipuncture Draw Fee 09:26:17 CDT CPT-29380 PT/INR - LAB USE ONLY 13:32:49 SPECIAL POPULATION PARAPROFESSIONAL CPT-50149 Venipuncture Draw Fee 13:32:49 SPECIAL POPULATION PARAPROFESSIONAL CPT-37608 PT/INR - LAB USE ONLY 10:34:49 SPECIAL POPULATION PARAPROFESSIONAL CPT-11504 Venipuncture Draw Fee 10:34:48 SPECIAL POPULATION PARAPROFESSIONAL CPT-70567 PT/INR - LAB USE ONLY 09:22:03 SPECIAL POPULATION PARAPROFESSIONAL CPT-49700 Venipuncture Draw Fee 09:22:02 SPECIAL POPULATION PARAPROFESSIONAL CPT-95103 Hemoccult IFOBT - LAB USE ONLY 10:27:22 CDT CPT-86398 Venipuncture Draw Fee 08:27:08 CDT CPT-27674 Liver Profile - LAB USE ONLY 08:27:07 CDT 2 CPT-14207 Microalbumin - LAB USE ONLY 08:27:07 CDT 20 25/05/09 CPT-91323 PT/INR - LAB USE ONLY 08:27:07 CDT CPT-14693 HGBA1C - LAB USE ONLY 08:27:07 CDT CPT-94109 CBC - LAB USE ONLY 08:27:07 CDT CPT-70514 Venipuncture Draw Fee 11:09:14 CDT CPT-30925 Venipuncture Draw Fee 08:32:21 SPECIAL POPULATION PARAPROFESSIONAL CPT-91403 Venipuncture Draw Fee 09:38:56 SPECIAL POPULATION PARAPROFESSIONAL CPT-95168 No Charge Offi Visit 21:36:07 CDT 1 CPT-40294 Venipuncture Draw Fee 10:13:28 SPECIAL POPULATION PARAPROFESSIONAL CPT-10674 Venipuncture Draw Fee 08:31:11 CDT CPT-43155 Aspir/Inject Med Joint 18:17:28 CDT CPT-10633 Venipuncture Draw Fee 10:13:30 CDT CPT-84446 Venipuncture Draw Fee 08:31:43 SPECIAL POPULATION PARAPROFESSIONAL CPT-JTINJ Joint Injection 18:34:50 CDT CPT-73560 Knee 3V 12:25:09 CDT CPT-94905 Venipuncture Draw Fee 12:15:57 CDT CPT-060 Medical Surveillance Exam 21:31:43 CDT 2011 CPT-84570 Venipuncture Draw Fee 08:32:05 SPECIAL POPULATION PARAPROFESSIONAL CPT-OV Office Visit 18:19:06 CDT
--- OUTSIDE RECORDS SUMMARY | 2020-01-18 12:03 | XMS REPORT | Clinical Summary ---
Author Author Admin, Mitch Leon Organization [facility] Address Unknown Phone Unavailable Allergies, Adverse Reactions, [...] Coronary atherosclerosis of unspecified type of vessel, [place] or graft EDEMA 782.3 Resolved Mitch Urbina [...] of colon Coumadin therapy V58.61 Active Domi Rivear MA Long-term (current) use of anticoagulants Valve [...] CELLULITIS, GROIN, LEFT ICD-682.2 Inactive Bruc e Arnol Urbina DO SEROMA ICD-998.13 Inactive Mitch Urbina [...] for 1 week, then once daily FLUTICASONE OH OPIONATE 69508026317 Active Becky Sell OLEO HASHER AND RENDERER Active PREDNISONE 20 MG ORAL TABLET 2 tabs daily for 3 days 1 tab d aily for 3 days PREDNISONE 63433872633 Active Becky Sell OLEO HASHER 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 RENDERER Active MINOXIDIL 2.5 MG ORAL TABLET 1 tablet twice daily for high b lood pressure MINOXIDIL 67712340183 Active Mitch Urbina DO Ac tive METFORMIN HCL ER 500 MG ORAL TABLET EXTENDED RELEASE 2 4 HOUR 2 tablets by mouth twice daily METFORMIN HCL 76047926198 Active Mitch Urbina DO Active GLIMEPIRIDE 4 MG ORAL TABLET 1 tablet by mouth twice daily f or diabetes GLIMEPIRIDE 48151933987 Active Mitch Urbina DO Active GLIMEPIRIDE 2 MG ORAL TABLET 1 po BID GLIMEPI RIDE 29682437334 No Longer Active Mitch Urbina DO Active AMLODIPINE BESYLATE 5 MG ORAL TABLET 1 tablet by mouth daily AMLODIPINE BESYLATE 02151497218 Active Mitch Urbina DO Active PROVIGIL 200 MG ORAL TABLET 1/2 tab po q day MODA FINIL 50596882589 Active Renee Oconnor LPN Active FAMOTIDINE 20 MG ORAL TABLET by mouth twice a day 2017 FAMOTIDINE 89720349833 No Longer Active Mitch Urbina DO Active COLCRYS 0.6 MG ORAL TABLET 1 tab qid prn gout C OLCHICINE 03161807948 No Longer Active Mitch Urbina DO Active KEFLEX 500 MG ORAL CAPSULE 1 po qid CEPHALEXI N 97744896409 No Longer Active Mitch Urbina DO Active LOSARTAN POTASSIUM 100 MG ORAL TABLET 1 pill by mouth daily, for blood pressure LOSARTAN POTASSIUM 85835216785 Active Ana Ocampo Active AMLODIPINE BESYLATE 5 MG ORAL TABLET 1 tablet by mouth daily 201 01/20/04 AMLODIPINE BESYLATE 71909073359 No Longer Active Joe fulton APRN Active MITIGARE 0.6 MG ORAL CAPSULE 2 capsules at onset of go ut pain, then take one capsule at 1 hour if symptoms persist. COLCHICINE 59 135773032 Active Mitch Urbina DO Active COUMADIN 1 MG ORAL TABLET 2 tabs orally daily with the 5mg tab to equal 7mg daily WARFARIN SODIUM 74483372413 Active Maria Briones Active INVOKANA 100 MG ORAL TABLET 1 tablet orally daily CANAGLIFLOZIN 92652992510 Active Mitch Urbina DO Active MECLIZINE HCL 25 MG ORAL TABLET 1 po tid 3 days, then 1/2 ta b tid 3 days MECLIZINE HCL 85688125420 No Longer Active Corey SEGURA Active ALLOPURINOL 300 MG ORAL TABLET Take 1 tablet by mouth daily 2012 ALLOPURINOL 05900918203 No Longer Active Corey SEGURA Active CLONIDINE HCL 0.1 MG ORAL TABLET 1 po bid 7 days, then 1/2 t ab po bid 7 days CLONIDINE HCL 26100648399 No Longer Active Corey SEGURA Active COUMADIN 5 MG ORAL TABLET 1 tab PO daily WARFAR IN SODIUM 46344444478 Active Renee Oconnor LPN Active COUMADIN 4 MG ORAL TABLET 1 tablet daily WARFAR IN SODIUM 12085292933 No Longer Active Corey SEGURA Active POLYTRIM 93268-6.1 UNIT/ML-% OPHTHALMIC SOLUTION 1 rui p in affected eye every 3 hours while awake x 7 days POLYMYXIN B-TRIMETHOP RIM 03820715336 No Longer Active Corey SEGURA Active LOSARTAN POTASSIUM-HCTZ 100-12.5 MG ORAL TABLET 1 by m outh daily for high blood pressure LOSARTAN POTASSIUM-HCTZ 79763685625 No Longer A ctive Mitch Urbina DO Active LISINOPRIL-HYDROCHLOROTHIAZIDE 20-12.5 MG ORAL TABLET 1 tab by m outh daily LISINOPRIL-HYDROCHLOROTHIAZIDE 51192568074 No Longer Active Mitch Urbina DO Active LISINOPRIL 20 MG ORAL TABLET 1 tab po at HS LIS INOPRIL 77315373843 No Longer Active Mitch Urbina DO Active COUMADIN 5 MG ORAL TABLET 1 by mouth every other day 2 WARFARIN SODIUM 64582523599 No Longer Active Mitch Urbina DO Active COUMADIN 6 MG ORAL TABLET 1 by mouth every other day 2 WARFARIN SODIUM 57365561911 No Longer Active Mitch Urbina DO Active SIMVASTATIN 40 MG ORAL TABLET 1 tab daily at bedtime SIMVASTATIN 96887450150 Active Maria Rivas RN Active SIMVASTATIN 20 MG ORAL TABLET 1 tab daily at bedtime 2 SIMVASTATIN 17803150479 No Longer Active Mitch Urbina DO Active LOVENOX 100 MG/ML SUBCUTANEOUS SOLUTION One injection twice a da y ENOXAPARIN SODIUM 93987383793 No Longer Active Carmine Yusuf MD Active JANUVIA 50 MG ORAL TABLET Take one by mouth daily SITAGLIPTIN PHOSPHATE 95481801924 Active eRnee Oconnor LPN Active JANUVIA 100 MG ORAL TABLET 1/2 by mouth every day 2011 SITAGLIPTIN PHOSPHATE 83213894493 No Longer Active Bijal Segal RN Acti ve METFORMIN HCL 500 MG ORAL TABLET 2 by mouth twice daily METFORMIN HCL 60511442271 No Longer Active Renee Oconnor LPN Active COLCRYS 0.6 MG ORAL TABLET 1 po q 6 hours prn gout pain COLCHICINE 21134416230 No Longer Active Camila Reese Active LISINOPRIL 5 MG ORAL TABLET 1 by mouth every day 11/17 LISINOPRIL 16923030871 No Longer Active Nguyen Ana Active KLOR-CON 20 MEQ ORAL PACKET Take one by mouth daily 09/10/08 POTASSIUM CHLORIDE 38275023656 No Longer Active Nguyen Ana Active FUROSEMIDE 40 MG ORAL TABLET 1 by mouth daily F UROSEMIDE 25335655963 No Longer Active Nguyen Ana Active PROVIGIL 100 MG ORAL TABLET Take one by mouth daily 08/20/04 MODAFINIL 02152763448 No Longer Active Mitch Urbina DO Active BACTRIM DS 800-160 MG ORAL TABLET 1 tab by mouth twice daily 201 10/19/09 TRIMETHOPRIM-SULFAMETHOXAZOLE 78192925395 No Longer Active Elian Hays MD Active ADULT ASPIRIN LOW STRENGTH 81 MG ORAL TABLET DISINTEGR ATING 1 by mouth every daily ASPIRIN 81288156877 Active Mitch Urbina DO Ac tive METOPROLOL TARTRATE 50 MG ORAL TABLET 1 by mouth twice daily METOPROLOL TARTRATE 85959197725 Active Maria Rivas RN Ac tive BACTRIM DS 800-160 MG ORAL TABLET 1 tab by mouth twice daily 201 10/19/09 BACTRIM DS 800-160 MG ORAL TABLET 996975 TRIMETHOPRIM-SULFAMETHOXAZOLE Inactive PROVIGIL 100 MG ORAL TABLET Take one by mouth daily 08/20/04 PROVIGIL 100 MG ORAL TABLET 332280 MODAFINIL Inactive FUROSEMIDE 40 MG ORAL TABLET 1 by mouth daily FUROSEMIDE 40 MG ORAL TABLET 478844 FUROSEMIDE Inactive KLOR-CON 20 MEQ ORAL PACKET Take one by mouth daily 09/10/08 KLOR- CON 20 MEQ ORAL PACKET 5575508 POTASSIUM CHLORIDE Inactive LISINOPRIL 5 MG ORAL TABLET 1 by mouth every day 11/17 LISINOPRIL 5 MG ORAL TABLET 524844 LISINOPRIL Inactive COLCRYS 0.6 MG ORAL TABLET 1 po q 6 hours prn gout pain COLCRYS 0.6 MG ORAL TABLET 753804 COLCHICINE Inactive JANUVIA 100 MG ORAL TABLET 1/2 by mouth every day 2011 JANUVIA 100 MG ORAL TABLET SITAGLIPTIN PHOSPHATE Inactive SIMVASTATIN 20 MG ORAL TABLET 1 tab daily at bedtime 2 SIMVASTATIN 20 MG ORAL TABLET 438582 SIMVASTATIN Inactive COUMADIN 6 MG ORAL TABLET 1 by mouth every other day 2 COUMADIN 6 MG ORAL TABLET 923321 WARFARIN SODIUM Inactive COUMADIN 5 MG ORAL TABLET 1 by mouth every other day 2 COUMADIN 5 MG ORAL TABLET 206070 WARFARIN SODIUM Inactive LISINOPRIL 20 MG ORAL TABLET 1 tab po at HS LISINOPRIL 20 MG ORAL TABLET 549108 LISINOPRIL Inactive LISINOPRIL-HYDROCHLOROTHIAZIDE 20-12.5 MG ORAL TABLET 1 tab by m outh daily LISINOPRIL-HYDROCHLOROTHIAZIDE 20-12.5 MG ORAL TABLET 191581 LISINOPRIL-HYDROCHLOROTHIAZIDE Inactive POLYTRIM 09458-3.1 UNIT/ML-% OPHTHALMIC SOLUTION 1 rui p in affected eye every 3 hours while awake x 7 days POLYTRIM 1000 0-0.1 UNIT/ML-% OPHTHALMIC SOLUTION 445383 POLYMYXIN B-TRIMETHOPRIM Inactive COUMADIN 4 MG ORAL TABLET 1 tablet daily COUMADIN 4 MG ORAL TABLET 156861 WARFARIN SODIUM Inactive CLONIDINE HCL 0.1 MG ORAL TABLET 1 po bid 7 days, then 1/2 t ab po bid 7 days CLONIDINE HCL 0.1 MG ORAL TABLET 351093 CLONIDIN E HCL Inactive ALLOPURINOL 300 MG ORAL TABLET Take 1 tablet by mouth daily 2012 ALLOPURINOL 300 MG ORAL TABLET 032092 ALLOPURINOL I nactive MECLIZINE HCL 25 MG ORAL TABLET 1 po tid 3 days, then 1/2 ta b tid 3 days MECLIZINE HCL 25 MG ORAL TABLET 172142 MECLIZINE HCL Inactive AMLODIPINE BESYLATE 5 MG ORAL TABLET 1 tablet by mouth daily 201 01/20/04 AMLODIPINE BESYLATE 5 MG ORAL TABLET 224932 AMLODIPINE BESYLATE Inactive KEFLEX 500 MG ORAL CAPSULE 1 po qid K EFLEX 500 MG ORAL CAPSULE 557508 CEPHALEXIN Inactive COLCRYS 0.6 MG ORAL TABLET 1 tab qid prn gout COLCRYS 0.6 MG ORAL TABLET 058638 COLCHICINE Inactive FAMOTIDINE 20 MG ORAL TABLET by mouth twice a day 2017 FAMOTIDINE 20 MG ORAL TABLET 663046 FAMOTIDINE Inactive GLIMEPIRIDE 2 MG ORAL TABLET 1 po BID GLIMEPIRIDE 2 MG ORAL TABLET 742197 GLIMEPIRIDE Inactive LOVENOX 100 MG/ML SUBCUTANEOUS SOLUTION One injection twice a da y LOVENOX 100 MG/ML SUBCUTANEOUS SOLUTION 921438 ENOXAPAR IN SODIUM Inactive Advance Directives Directive [...] 11 .6-14.8 platelet count 238 10^3/MM^3 10*3/mm3 493-812 1007/03/29 leukocyte count, blood 6.7 10^3/MM^3 10*3/mm3 4.6-10.2 [...] - 300 mg/g Abnormal mg/g mg/L 0 Lab Report: HGBA1C - Chemistry hemoglobin A1C, blood, as % of total hemoglobin 7.4 % 4.3-6.0 Office Visit: Med Review - Basic LDL target level 100 mg/dL Office Visit: Med Review - Chemistry HDL cholesterol, serum, target level 40 mg/dL cholesterol, target level 200 mg/dL triglyceride, target level 150 mg/dL Encounters Code Encounter Date Provider Facility CPT-72840 Level 3 Est. Patient 15:18:36 [facility] 01118-Eyk Vst-Est Level IV 10:06:35 CDT Stephy Ambrose [facility] CPT-20766 07941-Qid Vst-Est Level IV 10:52:00 ANGIO TECHNOLOGIST Stephy Ambrose [facility] CPT-58740 Level 3 Est. Patient 18:25:53 CDT Mitch luis [facility] CPT-29053 Level 3 Est. Patient 19:43:34 CDT Mitch luis [facility] CPT-30390 Level 4 Est. Patient 09:30:18 CDT Mitch W L janelle [facility] CPT-64219 Level 3 Est. Patient 15:10:14 CDT Joe kamara [facility]-12508 Level 3 Est. Patient 15:03:46 CDT Joe kamara [facility]-69548 Level 3 Est. Patient 14:21:06 CDT Mitch Ambrose L janelle [facility]-28238 Level 3 Est. Patient 14:52:06 CDT Devonsonya Jason kamara [facility] [place] [place] CPT-39319 Level 3 Est. Patient 09:34:30 ANGIO TECHNOLOGIST Mitch luis [facility]-93105 Level 3 Est. Patient 09:37:15 CDT Mitch Ambrose L janelle [facility]-74193 Level 3 Est. Patient 17:01:00 ANGIO TECHNOLOGIST Mitch luis [facility] CPT-72465 Level 3 Est. Patient 13:53:19 ANGIO TECHNOLOGIST Mitch Ambrose L janelle [facility] CPT-94539 Level 3 Est. Patient 19:19:37 ANGIO TECHNOLOGIST Mitch W L janelle [facility] CPT-30077 Level 3 Est. Patient 13:25:53 ANGIO TECHNOLOGIST Tavo toure MD [facility]-91165 Level 3 Est. Patient 18:17:28 CDT Mitch W Nona luis [facility] CPT-58941 Level 3 Est. Patient 15:22:57 CDT Mitch Ambrose L janelle [facility] CPT-56027 Level 3 Est. Patient 18:21:50 CDT Mitch W L ee [facility] CPT-05170 Level 3 Est. Patient 18:20:38 CDT Mitch W L ee [facility] CPT-46639 Level 3 Est. Patient 15:37:55 CDT Mitch luis [facility] CPT-25379 Level 2 Est. Patient 15:54:44 CDT Carmine benton MD [facility] CPT-95935 Level 3 Est. Patient 21:46:01 ANGIO TECHNOLOGIST Mitch luis [facility] CPT-51767 Level 3 Est. Patient 22:15:50 CDT Mitch luis [facility] CPT-21768 Level 3 Est. Patient 10:48:15 CDT Mitch luis [facility] CPT-39017 Level 3 Est. Patient 23:20:57 CDT Tavo toure MD [facility] CPT-40055 Level 3 Est. Patient 16:26:13 CDT Mitch luis [facility] Procedures Code Procedure Name Date Entry Date Standard Desc ription CPT-JTINJ Asp/Joint Injection 18:47:02 CDT CPT-09049 Venipuncture Draw Fee 09:26:17 CDT CPT-88621 PT/INR - LAB USE ONLY 13:32:49 ANGIO TECHNOLOGIST CPT-23813 Venipuncture Draw Fee 13:32:49 ANGIO TECHNOLOGIST CPT-12720 PT/INR - LAB USE ONLY 10:34:49 ANGIO TECHNOLOGIST CPT-44910 Venipuncture Draw Fee 10:34:48 ANGIO TECHNOLOGIST CPT-40529 PT/INR - LAB USE ONLY 09:22:03 ANGIO TECHNOLOGIST CPT-07333 Venipuncture Draw Fee 09:22:02 ANGIO TECHNOLOGIST CPT-47952 Hemoccult IFOBT - LAB USE ONLY 10:27:22 CDT CPT-81937 Venipuncture Draw Fee 08:27:08 CDT CPT-02486 Liver Profile - LAB USE ONLY 08:27:07 CDT 2 CPT-33932 Microalbumin - LAB USE ONLY 08:27:07 CDT 20 25/05/09 CPT-36593 PT/INR - LAB USE ONLY 08:27:07 CDT CPT-88766 HGBA1C - LAB USE ONLY 08:27:07 CDT CPT-96635 CBC - LAB USE ONLY 08:27:07 CDT CPT-67202 Venipuncture Draw Fee 11:09:14 CDT CPT-88788 Venipuncture Draw Fee 08:32:21 ANGIO TECHNOLOGIST CPT-34883 Venipuncture Draw Fee 09:38:56 ANGIO TECHNOLOGIST CPT-83432 No Charge Offi Visit 21:36:07 CDT 1 CPT-65688 Venipuncture Draw Fee 10:13:28 ANGIO TECHNOLOGIST CPT-34796 Venipuncture Draw Fee 08:31:11 CDT CPT-52334 Aspir/Inject Med Joint 18:17:28 CDT CPT-15374 Venipuncture Draw Fee 10:13:30 CDT CPT-80722 Venipuncture Draw Fee 08:31:43 ANGIO TECHNOLOGIST CPT-JTINJ Joint Injection 18:34:50 CDT CPT-38419 Knee 3V 12:25:09 CDT CPT-95644 Venipuncture Draw Fee 12:15:57 CDT CPT-060 Medical Surveillance Exam 21:31:43 CDT 2011 CPT-81104 Venipuncture Draw Fee 08:32:05 ANGIO TECHNOLOGIST 2011/11/ 23 CPT-OV Office Visit 18:19:06 CDT
--- OUTSIDE RECORDS SUMMARY | 2020-01-18 12:03 | XMS REPORT | Clinical Summary ---
Author Author Admin, Mitch Leon Organization [facility] [email or web address] Address Unknown Phone Unavailable Allergies, Adverse Reactions, [...] of anticoagulants Valve replacement V43.3 Active Mitch Uribna DO Heart valve replaced by other means [...] O Sebaceous cyst, infected ICD-706.2 Inactive Mitch Urbnia DO Cellulitis ICD-682.9 Inactive Mitch Urbina DO 10/23 Medication List Medication Instructions Start Date Stop Date Generic Name NDC Status Provider Patient Instruction FLUTICASONE PROPIONATE 50 MCG/ACT NASAL SUSPENSION 1 s pray each nostril twice daily for 1 week, then once daily FLUTICASONE MO OPIONATE 72122759256 Active 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 PREDNISONE 20 MG ORAL TABLET 2 tabs daily for 3 days 1 tab d aily for 3 days PREDNISONE 20118119178 Active 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 MINOXIDIL 2.5 MG ORAL TABLET 1 tablet twice daily for high b lood pressure MINOXIDIL 53206777898 Active Mitch Urbina DO Ac tive METFORMIN HCL ER 500 MG ORAL TABLET EXTENDED RELEASE 2 4 HOUR 2 tablets by mouth twice daily METFORMIN HCL 96351061482 Active Mitch Urbina DO Active GLIMEPIRIDE 4 MG ORAL TABLET 1 tablet by mouth twice daily f or diabetes GLIMEPIRIDE 17465794955 Active Mitch Urbina DO Active GLIMEPIRIDE 2 MG ORAL TABLET 1 po BID GLIMEPI RIDE 65308232399 No Longer Active Mitch Urbina DO Active AMLODIPINE BESYLATE 5 MG ORAL TABLET 1 tablet by mouth daily AMLODIPINE BESYLATE 68079893118 Active Mitch Urbina DO Active PROVIGIL 200 MG ORAL TABLET 1/2 tab po q day MODA FINIL 23056034350 Active Renee Oconnor LPN Active FAMOTIDINE 20 MG ORAL TABLET by mouth twice a day 2017 FAMOTIDINE 27577564368 No Longer Active Mitch Urbina DO Active COLCRYS 0.6 MG ORAL TABLET 1 tab qid prn gout C OLCHICINE 94484473824 No Longer Active Mitch Urbina DO Active KEFLEX 500 MG ORAL CAPSULE 1 po qid CEPHALEXI N 66450540163 No Longer Active Mitch Urbina DO Active LOSARTAN POTASSIUM 100 MG ORAL TABLET 1 pill by mouth daily, for blood pressure LOSARTAN POTASSIUM 58602977448 Active Ana Ocampo Active AMLODIPINE BESYLATE 5 MG ORAL TABLET 1 tablet by mouth daily 201 01/20/04 AMLODIPINE BESYLATE 05223208438 No Longer Active Joe fulton APRN Active MITIGARE 0.6 MG ORAL CAPSULE 2 capsules at onset of go ut pain, then take one capsule at 1 hour if symptoms persist. COLCHICINE 59 646244518 Active Mitch Urbina DO Active COUMADIN 1 MG ORAL TABLET 2 tabs orally daily with the 5mg tab to equal 7mg daily WARFARIN SODIUM 06395286237 Active Maria Briones Active INVOKANA 100 MG ORAL TABLET 1 tablet orally daily CANAGLIFLOZIN 71169587959 Active Mitch Urbina DO Active MECLIZINE HCL 25 MG ORAL TABLET 1 po tid 3 days, then 1/2 ta b tid 3 days MECLIZINE HCL 29320376482 No Longer Active Corey SEGURA Active ALLOPURINOL 300 MG ORAL TABLET Take 1 tablet by mouth daily 2012 ALLOPURINOL 12647198833 No Longer Active Corey SEGURA Active CLONIDINE HCL 0.1 MG ORAL TABLET 1 po bid 7 days, then 1/2 t ab po bid 7 days CLONIDINE HCL 36184579467 No Longer Active Corey SEGURA Active COUMADIN 5 MG ORAL TABLET 1 tab PO daily WARFAR IN SODIUM 28344310265 Active Renee Oconnor LPN Active COUMADIN 4 MG ORAL TABLET 1 tablet daily WARFAR IN SODIUM 39795472483 No Longer Active Corey SEGURA Active POLYTRIM 03486-4.1 UNIT/ML-% OPHTHALMIC SOLUTION 1 rui p in affected eye every 3 hours while awake x 7 days POLYMYXIN B-TRIMETHOP RIM 99317379724 No Longer Active Corey SEGURA Active LOSARTAN POTASSIUM-HCTZ 100-12.5 MG ORAL TABLET 1 by m outh daily for high blood pressure LOSARTAN POTASSIUM-HCTZ 08094821738 No Longer A ctive Mitch Urbina DO Active LISINOPRIL-HYDROCHLOROTHIAZIDE 20-12.5 MG ORAL TABLET 1 tab by m outh daily LISINOPRIL-HYDROCHLOROTHIAZIDE 07438788400 No Longer Active Mitch Urbina DO Active LISINOPRIL 20 MG ORAL TABLET 1 tab po at HS LIS INOPRIL 16427748892 No Longer Active Mitch Urbina DO Active COUMADIN 5 MG ORAL TABLET 1 by mouth every other day 2 WARFARIN SODIUM 90248630850 No Longer Active Mitch Urbina DO Active COUMADIN 6 MG ORAL TABLET 1 by mouth every other day 2 WARFARIN SODIUM 36696225989 No Longer Active Mitch Urbina DO Active SIMVASTATIN 40 MG ORAL TABLET 1 tab daily at bedtime SIMVASTATIN 12596682575 Active Maria Rivas RN Active SIMVASTATIN 20 MG ORAL TABLET 1 tab daily at bedtime 2 SIMVASTATIN 96458493778 No Longer Active Mitch Urbina DO Active LOVENOX 100 MG/ML SUBCUTANEOUS SOLUTION One injection twice a da y ENOXAPARIN SODIUM 23158539471 No Longer Active Carmine Yusuf MD Active JANUVIA 50 MG ORAL TABLET Take one by mouth daily SITAGLIPTIN PHOSPHATE 14118348173 Active Renee Oconnor LPN Active JANUVIA 100 MG ORAL TABLET 1/2 by mouth every day 2011 SITAGLIPTIN PHOSPHATE 83344115552 No Longer Active Bijal Segal RN Acti ve METFORMIN HCL 500 MG ORAL TABLET 2 by mouth twice daily METFORMIN HCL 46476698045 No Longer Active Renee Oconnor LPN Active COLCRYS 0.6 MG ORAL TABLET 1 po q 6 hours prn gout pain COLCHICINE 69600945676 No Longer Active Camila Reese Active LISINOPRIL 5 MG ORAL TABLET 1 by mouth every day 11/17 LISINOPRIL 46049825001 No Longer Active Nguyen Coekman Active KLOR-CON 20 MEQ ORAL PACKET Take one by mouth daily 09/10/08 POTASSIUM CHLORIDE 45011981801 No Longer Active Nguyen Coekman Active FUROSEMIDE 40 MG ORAL TABLET 1 by mouth daily F UROSEMIDE 34477703419 No Longer Active Nguyen Coekman Active PROVIGIL 100 MG ORAL TABLET Take one by mouth daily 08/20/04 MODAFINIL 81858691443 No Longer Active Mitch Urbina DO Active BACTRIM DS 800-160 MG ORAL TABLET 1 tab by mouth twice daily 201 10/19/09 TRIMETHOPRIM-SULFAMETHOXAZOLE 28410631057 No Longer Active Elian Hays MD Active ADULT ASPIRIN LOW STRENGTH 81 MG ORAL TABLET DISINTEGR ATING 1 by mouth every daily ASPIRIN 98582509387 Active Mitch Urbina DO Ac tive METOPROLOL TARTRATE 50 MG ORAL TABLET 1 by mouth twice daily METOPROLOL TARTRATE 49303676536 Active Maria Rivas RN Ac tive BACTRIM DS 800-160 MG ORAL TABLET 1 tab by mouth twice daily 201 10/19/09 BACTRIM DS 800-160 MG ORAL TABLET 842989 TRIMETHOPRIM-SULFAMETHOXAZOLE Inactive PROVIGIL 100 MG ORAL TABLET Take one by mouth daily 08/20/04 PROVIGIL 100 MG ORAL TABLET 903779 MODAFINIL Inactive FUROSEMIDE 40 MG ORAL TABLET 1 by mouth daily FUROSEMIDE 40 MG ORAL TABLET 340884 FUROSEMIDE Inactive KLOR-CON 20 MEQ ORAL PACKET Take one by mouth daily 09/10/08 KLOR- CON 20 MEQ ORAL PACKET 5343483 POTASSIUM CHLORIDE Inactive LISINOPRIL 5 MG ORAL TABLET 1 by mouth every day 11/17 LISINOPRIL 5 MG ORAL TABLET 144062 LISINOPRIL Inactive COLCRYS 0.6 MG ORAL TABLET 1 po q 6 hours prn gout pain COLCRYS 0.6 MG ORAL TABLET 424081 COLCHICINE Inactive JANUVIA 100 MG ORAL TABLET 1/2 by mouth every day 2011 JANUVIA 100 MG ORAL TABLET SITAGLIPTIN PHOSPHATE Inactive SIMVASTATIN 20 MG ORAL TABLET 1 tab daily at bedtime 2 SIMVASTATIN 20 MG ORAL TABLET 565923 SIMVASTATIN Inactive COUMADIN 6 MG ORAL TABLET 1 by mouth every other day 2 COUMADIN 6 MG ORAL TABLET 725505 WARFARIN SODIUM Inactive COUMADIN 5 MG ORAL TABLET 1 by mouth every other day 2 COUMADIN 5 MG ORAL TABLET 061150 WARFARIN SODIUM Inactive LISINOPRIL 20 MG ORAL TABLET 1 tab po at HS LISINOPRIL 20 MG ORAL TABLET 318419 LISINOPRIL Inactive LISINOPRIL-HYDROCHLOROTHIAZIDE 20-12.5 MG ORAL TABLET 1 tab by m outh daily LISINOPRIL-HYDROCHLOROTHIAZIDE 20-12.5 MG ORAL TABLET 610919 LISINOPRIL-HYDROCHLOROTHIAZIDE Inactive POLYTRIM 22405-2.1 UNIT/ML-% OPHTHALMIC SOLUTION 1 rui p in affected eye every 3 hours while awake x 7 days POLYTRIM 1000 0-0.1 UNIT/ML-% OPHTHALMIC SOLUTION 499977 POLYMYXIN B-TRIMETHOPRIM Inactive COUMADIN 4 MG ORAL TABLET 1 tablet daily COUMADIN 4 MG ORAL TABLET 874209 WARFARIN SODIUM Inactive CLONIDINE HCL 0.1 MG ORAL TABLET 1 po bid 7 days, then 1/2 t ab po bid 7 days CLONIDINE HCL 0.1 MG ORAL TABLET 860106 CLONIDIN E HCL Inactive ALLOPURINOL 300 MG ORAL TABLET Take 1 tablet by mouth daily 2012 ALLOPURINOL 300 MG ORAL TABLET 947464 ALLOPURINOL I nactive MECLIZINE HCL 25 MG ORAL TABLET 1 po tid 3 days, then 1/2 ta b tid 3 days MECLIZINE HCL 25 MG ORAL TABLET 428847 MECLIZINE HCL Inactive AMLODIPINE BESYLATE 5 MG ORAL TABLET 1 tablet by mouth daily 201 01/20/04 AMLODIPINE BESYLATE 5 MG ORAL TABLET 202506 AMLODIPINE BESYLATE Inactive KEFLEX 500 MG ORAL CAPSULE 1 po qid K EFLEX 500 MG ORAL CAPSULE 825786 CEPHALEXIN Inactive COLCRYS 0.6 MG ORAL TABLET 1 tab qid prn gout COLCRYS 0.6 MG ORAL TABLET 211403 COLCHICINE Inactive FAMOTIDINE 20 MG ORAL TABLET by mouth twice a day 2017 FAMOTIDINE 20 MG ORAL TABLET 375126 FAMOTIDINE Inactive GLIMEPIRIDE 2 MG ORAL TABLET 1 po BID GLIMEPIRIDE 2 MG ORAL TABLET 909884 GLIMEPIRIDE Inactive LOVENOX 100 MG/ML SUBCUTANEOUS SOLUTION One injection twice a da y LOVENOX 100 MG/ML SUBCUTANEOUS SOLUTION 260105 ENOXAPAR IN SODIUM Inactive Advance Directives Directive [...] 11 .6-14.8 platelet count 238 10^3/MM^3 10*3/mm3 478-574 4322/03/29 leukocyte count, blood 6.7 10^3/MM^3 10*3/mm3 4.6-10.2 [...] mg/dL Encounters Code Encounter Date Provider Facility CPT-95591 Level 3 Est. Patient 15:18:36 [facility] [id number] Vst-Est Level IV 10:06:35 CDT Stephy Ambrose [facility] CPT-41377 [id number] Vst-Est Level IV 10:52:[address] COUNSELLOR Stephy Ambrose [facility] CPT-98981 Level 3 Est. Patient 18:25:53 CDT Mitch luis [facility] CPT-84193 Level 3 Est. Patient 19:43:34 CDT Mitch luis [facility] CPT-40985 Level 4 Est. Patient 09:30:18 CDT Mitch W L janelle [facility] CPT-79086 Level 3 Est. Patient 15:10:14 CDT Joe kamara [facility] CPT-08211 Level 3 Est. Patient 15:03:46 CDT Joe kamara [facility]-76393 Level 3 Est. Patient 14:21:06 CDT Mitch Ambrose L janelle [facility]-58041 Level 3 Est. Patient 14:52:06 CDT Devonjustincarlitos kamara [facility]-72022 Level 3 Est. Patient 09:34:[address] COUNSELLOR Mitch Ambrose L janelle [facility]-11682 Level 3 Est. Patient 09:37:15 CDT Mitch Ambrose L janelle [facility]-52968 Level 3 Est. Patient 17:01:[address] COUNSELLOR Mitch Ambrose L janelle [facility] CPT-98715 Level 3 Est. Patient 13:53:[address] COUNSELLOR Mitch Ambrose L janelle [facility] CPT-98961 Level 3 Est. Patient 19:19:[address] COUNSELLOR Mitch W L janelle [facility] CPT-39998 Level 3 Est. Patient 13:25:[address] COUNSELLOR Tavo toure MD [facility]-80908 Level 3 Est. Patient 18:17:28 CDT Mitch W L janelle [facility] CPT-22331 Level 3 Est. Patient 15:22:57 CDT Mitch W L janelle [facility] CPT-98084 Level 3 Est. Patient 18:21:50 CDT Mitch W L ee [facility] CPT-48096 Level 3 Est. Patient 18:20:38 CDT Mitch W L ee [facility] CPT-00692 Level 3 Est. Patient 15:37:55 CDT Mitch Arnol Nona janelle [facility] CPT-23011 Level 2 Est. Patient 15:54:44 CDT Carmine benton MD [facility] CPT-01427 Level 3 Est. Patient 21:46:[address] COUNSELLOR Mitch luis [facility] CPT-26007 Level 3 Est. Patient 22:15:50 CDT Mitch luis [facility] CPT-64659 Level 3 Est. Patient 10:48:15 CDT Mitch luis [facility] CPT-90743 Level 3 Est. Patient 23:20:57 CDT Tavo toure MD [facility] CPT-88584 Level 3 Est. Patient 16:26:13 CDT Mitch luis [facility] Procedures Code Procedure Name Date Entry Date Standard Desc ription CPT-JTINJ Asp/Joint Injection 18:47:02 CDT CPT-99446 Venipuncture Draw Fee 09:26:17 CDT CPT-06372 PT/INR - LAB USE ONLY 13:32:[address] COUNSELLOR CPT-70014 Venipuncture Draw Fee 13:32:[address] COUNSELLOR CPT-17843 PT/INR - LAB USE ONLY 10:34:[address] COUNSELLOR CPT-20149 Venipuncture Draw Fee 10:34:[address] COUNSELLOR CPT-63949 PT/INR - LAB USE ONLY 09:22:[address] COUNSELLOR CPT-93803 Venipuncture Draw Fee 09:22:[address] COUNSELLOR CPT-58776 Hemoccult IFOBT - LAB USE ONLY 10:27:22 CDT CPT-56131 Venipuncture Draw Fee 08:27:08 CDT CPT-98555 Liver Profile - LAB USE ONLY 08:27:07 CDT 2 CPT-91906 Microalbumin - LAB USE ONLY 08:27:07 CDT 20 25/05/09 CPT-53700 PT/INR - LAB USE ONLY 08:27:07 CDT CPT-68966 HGBA1C - LAB USE ONLY 08:27:07 CDT CPT-08221 CBC - LAB USE ONLY 08:27:07 CDT CPT-32301 Venipuncture Draw Fee 11:09:14 CDT CPT-43405 Venipuncture Draw Fee 08:32:[address] COUNSELLOR CPT-43230 Venipuncture Draw Fee 09:38:[address] COUNSELLOR CPT-83391 No Charge Offi Visit 21:36:07 CDT 1 CPT-82019 Venipuncture Draw Fee 10:13:[address] COUNSELLOR CPT-75381 Venipuncture Draw Fee 08:31:11 CDT CPT-89073 Aspir/Inject Med Joint 18:17:28 CDT CPT-38089 Venipuncture Draw Fee 10:13:30 CDT CPT-73077 Venipuncture Draw Fee 08:31:[address] COUNSELLOR CPT-JTINJ Joint Injection 18:34:50 CDT CPT-26729 Knee 3V 12:25:09 CDT CPT-71759 Venipuncture Draw Fee 12:15:57 CDT CPT-060 Medical Surveillance Exam 21:31:43 CDT 2011 CPT-45171 Venipuncture Draw Fee 08:32:[address] COUNSELLOR CPT-OV Office Visit 18:19:06 CDT
--- OUTSIDE RECORDS SUMMARY | 2020-01-18 12:04 | XMS REPORT | Clinical Summary ---
Author Author Admin, Mitch Leon Organization [facility] Address Unknown Phone Unavailable Allergies, Adverse [...] Coronary atherosclerosis of unspecified type of vessel, [place] or graft EDEMA 782.3 Resolved Mitch Urbina [...] ( 6mg total ) 2015 WARFARIN SODIUM 70026589217 Active Domi Rivera MA Acti ve INVOKANA 100 MG ORAL TABS 1 tablet orally daily CANAGLIFLOZIN 58867389284 Active Kathie Juan RPT,RMA Active MINOXIDIL 2.5 MG TABS 1 tablet daily for high blood pressure 10/23 MINOXIDIL 25155744231 Active Mitch Urbina DO Active AMLODIPINE BESYLATE 5 MG TABS 1 tablet by mouth daily AMLODIPINE BESYLATE 24024424068 Active Domi Rivera MA Active MECLIZINE HCL 25 MG TAB 1 po tid 3 days, then 1/2 tab tid 3 days MECLIZINE HCL 42768136927 No Longer Active Corey SEGURA Active ALLOPURINOL 300 MG TABS Take 1 tablet by mouth daily 2 ALLOPURINOL 46462182636 No Longer Active Corey SEGURA Activ e CLONIDINE HCL 0.1 MG TABS 1 po bid 7 days, then 1/2 tab po b id 7 days CLONIDINE HCL 74532725770 No Longer Active Corey SEGURA Active COUMADIN 5 MG TABS 1 tab PO daily WARFARIN SODIUM 62490011126 Active Domi Rivera MA Active COUMADIN 4 MG TABS 1 tablet daily WARFARIN SODI UM 45829506780 No Longer Active Corey SEGURA Active POLYTRIM 88360-6.1 UNIT/ML-% SOLN 1 drop in affected e ye every 3 hours while awake x 7 days POLYMYXIN B-TRIMETHOPRIM 99469866340 N o Longer Active Corey SEGURA Active LOSARTAN POTASSIUM-HCTZ 100-12.5 MG TABS 1 by mouth da rocky for high blood pressure LOSARTAN POTASSIUM-HCTZ 84808641498 Active Domi Rivera MA Active LISINOPRIL-HYDROCHLOROTHIAZIDE 20-12.5 MG TABS 1 tab by mouth da rocky LISINOPRIL-HYDROCHLOROTHIAZIDE 67111341801 No Longer Active Mitch luis DO Active LISINOPRIL 20 MG TABS 1 tab po at HS LISINOPRIL 60470627538 No Longer Active Mitch Urbina DO Active COUMADIN 5 MG TABS 1 by mouth every other day WARFARIN SODIUM 38173953713 No Longer Active Mitch Urbina DO Active COUMADIN 6 MG TABS 1 by mouth every other day WARFARIN SODIUM 61556122712 No Longer Active Mitch Urbina DO Active COLCRYS 0.6 MG TABS 1 tab qid prn gout COLCHICINE 14767430234 Active Corey SEGURA Active SIMVASTATIN 40 MG TABS 1 tab daily at bedtime S IMVASTATIN 11363501771 Active Domi Rivera MA Active SIMVASTATIN 20 MG TABS 1 tab daily at bedtime S IMVASTATIN 48730798629 No Longer Active Mitch Urbina DO Active LOVENOX 100 MG/ML SC SOLN One injection twice a day 09/15/15 ENOXAPARIN SODIUM 04035255761 No Longer Active Carmine Navarrete ctive JANUVIA 50 MG TABS Take one by mouth daily DIEGO GLIPTIN PHOSPHATE 75664523607 Active Domi Rivera MA Active JANUVIA 100 MG TABS 1/2 by mouth every day DIEGO GLIPTIN PHOSPHATE 17652876241 No Longer Active Bijal Segal RN Active METFORMIN HCL 500 MG TABS 2 by mouth twice daily METFORMIN HCL 65000967000 Active Kathie Juan RPT,RMA Active GLIMEPIRIDE 4 MG TABS 1 tab po bid GLIMEPIRIDE 717408 62225 Active Kathie Juan RPT,RMA Active COLCRYS 0.6 MG TABS 1 po q 6 hours prn gout pain 03/02 COLCHICINE 94612318752 No Longer Active Camila Reese Active LISINOPRIL 5 MG TABS 1 by mouth every day LISIN OPRIL 04210539026 No Longer Active Nguyen Perez Active KLOR-CON 20 MEQ PACK Take one by mouth daily 8 POTASSIUM CHLORIDE 10087485847 No Longer Active Nguyen Perez Active FUROSEMIDE 40 MG TABS 1 by mouth daily FUROSEMI DE 92340427689 No Longer Active Nguyenmolly Perez Active PROVIGIL 200 MG TABS 1/2 tab po q day MODAFINIL 34155 940785 Active Domi Rivera MA Active PROVIGIL 100 MG TABS Take one by mouth daily MO DAFINIL 84227126725 No Longer Active Mitch Urbina DO Active BACTRIM DS 800-160 MG TAB 1 tab by mouth twice daily 2 TRIMETHOPRIM-SULFAMETHOXAZOLE 01349550527 No Longer Active Renan Hays MD Active FAMOTIDINE 20 MG TABS by mouth twice a day FAMOTI DINE 18487183448 Active Mitch Urbina DO Active ADULT ASPIRIN LOW STRENGTH 81 MG TBDP 1 by mouth every daily ASPIRIN 71543569253 Active Mitch Urbina DO Active METOPROLOL TARTRATE 50 MG TABS 1 by mouth twice daily METOPROLOL TARTRATE 43155318978 Active Domi Rivera MA Active BACTRIM DS 800-160 MG TAB 1 tab by mouth twice daily 2 BACTRIM DS 800-160 MG TAB 869055 TRIMETHOPRIM-SULFAMETHOXAZOLE Inac tive PROVIGIL 100 MG TABS Take one by mouth daily 4 PROVIGIL 100 MG TABS 906749 MODAFINIL Inactive FUROSEMIDE 40 MG TABS 1 by mouth daily FU ROSEMIDE 40 MG TABS 894391 FUROSEMIDE Inactive KLOR-CON 20 MEQ PACK Take one by mouth daily 8 KLOR-CON 20 MEQ PACK 877171 POTASSIUM CHLORIDE Inactive LISINOPRIL 5 MG TABS 1 by mouth every day LISINOPRIL 5 MG TABS 677914 LISINOPRIL Inactive COLCRYS 0.6 MG TABS 1 po q 6 hours prn gout pain 03/02 COLCRYS 0.6 MG TABS 617504 COLCHICINE Inactive JANUVIA 100 MG TABS 1/2 by mouth every day JANUVI A 100 MG TABS SITAGLIPTIN PHOSPHATE Inactive SIMVASTATIN 20 MG TABS 1 tab daily at bedtime SIMVASTATIN 20 MG TABS 600390 SIMVASTATIN Inactive COUMADIN 6 MG TABS 1 by mouth every other day COUMADIN 6 MG TABS 155866 WARFARIN SODIUM Inactive COUMADIN 5 MG TABS 1 by mouth every other day COUMADIN 5 MG TABS 961694 WARFARIN SODIUM Inactive LISINOPRIL 20 MG TABS 1 tab po at HS KOKI NOPRIL 20 MG TABS 077390 LISINOPRIL Inactive LISINOPRIL-HYDROCHLOROTHIAZIDE 20-12.5 MG TABS 1 tab by mouth da rocky LISINOPRIL-HYDROCHLOROTHIAZIDE 20-12.5 MG TABS 899061 LISINOPRIL-HYDROCHLOROTHIAZIDE Inactive POLYTRIM 67823-7.1 UNIT/ML-% SOLN 1 drop in affected e ye every 3 hours while awake x 7 days POLYTRIM 04185-2.1 UNIT/ML-% SOLN 57566 7 POLYMYXIN B-TRIMETHOPRIM Inactive COUMADIN 4 MG TABS 1 tablet daily COUMADIN 4 MG TABS 082935 WARFARIN SODIUM Inactive CLONIDINE HCL 0.1 MG TABS 1 po bid 7 days, then 1/2 tab po b id 7 days CLONIDINE HCL 0.1 MG TABS 604030 CLONIDINE HCL I nactive ALLOPURINOL 300 MG TABS Take 1 tablet by mouth daily 2 ALLOPURINOL 300 MG TABS 158255 ALLOPURINOL Inactive MECLIZINE HCL 25 MG TAB 1 po tid 3 days, then 1/2 tab tid 3 days MECLIZINE HCL 25 MG TAB 214524 MECLIZINE HCL Inactive LOVENOX 100 MG/ML SC SOLN One injection twice a day 09/15/15 LOVENOX 100 MG/ML SC SOLN 255684 ENOXAPARIN SODIUM Inactive Vital Signs Date Name [...] Range Description Chart Maintenance: [facility] Chemistry occult blood, stool (E&M) Positive [...] Ag - Chemistry sodium, serum 141 mmol/L 429-853 9994/07/06 potassium, serum 4.4 mmol/L 3.5-5.2 chloride, serum [...] - Chem istry sodium, serum 136 mmol/L 783-305 9675/01/14 carbon dioxide, venous blood 25.4 mmol/L 21.0-32 [...] 7.0 % 4.3-6.0 cholesterol, serum 120 mg/dL 323-554 9582/07/06 triglyceride, serum, fasting 186 mg/dL 30-200 HDL [...] 1.0-3.5 Encounters Code Encounter Date Provider Facility CPT-69310 Level 3 Est. Patient 09:34:30 [employer] Mitch luis [facility] CPT-03070 Level 3 Est. Patient 09:37:15 CDT Mitch luis [facility] CPT-28315 Level 3 Est. Patient 17:01:00 [employer] Mitch luis [facility] CPT-34798 Level 3 Est. Patient 13:53:19 [employer] Mitch luis [facility] CPT-18017 Level 3 Est. Patient 19:19:37 [employer] Mitch luis [facility] CPT-64858 Level 3 Est. Patient 13:25:53 [employer] Tavo toure MD [facility] CPT-05023 Level 3 Est. Patient 18:17:28 CDT Mitch luis [facility] CPT-48971 Level 3 Est. Patient 15:22:57 CDT Mitch luis [facility] CPT-67701 Level 3 Est. Patient 18:21:50 CDT Mitch luis [facility] CPT-35745 Level 3 Est. Patient 18:20:38 CDT Mitch luis [facility] CPT-00793 Level 3 Est. Patient 15:37:55 CDT Mitch luis [facility] CPT-55509 Level 2 Est. Patient 15:54:44 CDT Carmine benton MD [facility] CPT-71431 Level 3 Est. Patient 21:46:01 [employer] Mitch luis [facility] CPT-28325 Level 3 Est. Patient 22:15:50 CDT Mitch luis [facility] CPT-17468 Level 3 Est. Patient 10:48:15 CDT Mitch luis [facility] CPT-73950 Level 3 Est. Patient 23:20:57 CDT Tavo toure MD [facility] CPT-05015 Level 3 Est. Patient 16:26:13 CDT Mitch luis [facility] Procedures Code Procedure Name Date Entry Date Standard Desc ription CPT-59961 Venipuncture Draw Fee 08:32:21 [employer] CPT-01232 Venipuncture Draw Fee 09:38:56 [employer] CPT-95341 No Charge Offi Visit 21:36:07 CDT 1 CPT-21842 Venipuncture Draw Fee 10:13:28 [employer] CPT-65989 Venipuncture Draw Fee 08:31:11 CDT CPT-82716 Aspir/Inject Med Joint 18:17:28 CDT CPT-91310 Venipuncture Draw Fee 10:13:30 CDT CPT-10146 Venipuncture Draw Fee 08:31:43 [employer] CPT-JTINJ Joint Injection 18:34:50 CDT CPT-90317 Knee 3V 12:25:09 CDT CPT-20875 Venipuncture Draw Fee 12:15:57 CDT CPT-060 Medical Surveillance Exam 21:31:43 CDT 2011 CPT-22660 Venipuncture Draw Fee 08:32:05 [employer] CPT-OV Office Visit 18:19:06 CDT
--- OUTSIDE RECORDS SUMMARY | 2020-01-18 12:04 | XMS REPORT | Clinical Summary ---
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 PREDNISONE 20 MG ORAL TABLET 2 tabs daily for 3 days 1 tab d aily for 3 days PREDNISONE 39862120737 Active Becky Sell NEMATOLOGY TEACHER Active MINOXIDIL 2.5 MG ORAL TABLET 1 tablet twice daily for high b lood pressure MINOXIDIL 04920275402 Active Mitch Urbina DO Ac tive METFORMIN HCL ER 500 MG ORAL TABLET EXTENDED RELEASE 2 4 HOUR 2 tablets by mouth twice daily METFORMIN HCL 36359845072 Active Mitch Urbina DO Active GLIMEPIRIDE 4 MG ORAL TABLET 1 tablet by mouth twice daily f or diabetes GLIMEPIRIDE 21886898418 Active Mitch Urbina DO Active GLIMEPIRIDE 2 MG ORAL TABLET 1 po BID GLIMEPI RIDE 38120901010 No Longer Active Mitch Urbina DO Active AMLODIPINE BESYLATE 5 MG ORAL TABLET 1 tablet by mouth daily AMLODIPINE BESYLATE 42920202696 Active Mitch Urbina DO Active PROVIGIL 200 MG ORAL TABLET 1/2 tab po q day MODA FINIL 94802949403 Active Renee Oconnor LPN Active FAMOTIDINE 20 MG ORAL TABLET by mouth twice a day 2017 FAMOTIDINE 35068771065 No Longer Active Mitch Urbina DO Active COLCRYS 0.6 MG ORAL TABLET 1 tab qid prn gout C OLCHICINE 29769604991 No Longer Active Mitch Urbina DO Active KEFLEX 500 MG ORAL CAPSULE 1 po qid CEPHALEXI N 58000804713 No Longer Active Mitch Urbina DO Active LOSARTAN POTASSIUM 100 MG ORAL TABLET 1 pill by mouth daily, for blood pressure LOSARTAN POTASSIUM 51469766149 Active Ana Ocampo Active AMLODIPINE BESYLATE 5 MG ORAL TABLET 1 tablet by mouth daily 201 01/20/04 AMLODIPINE BESYLATE 76928819449 No Longer Active Joe fulton APRN Active MITIGARE 0.6 MG ORAL CAPSULE 2 capsules at onset of go ut pain, then take one capsule at 1 hour if symptoms persist. COLCHICINE 59 919751853 Active Mitch Urbina DO Active COUMADIN 1 MG ORAL TABLET 2 tabs orally daily with the 5mg tab to equal 7mg daily WARFARIN SODIUM 71465163232 Active Maria Briones Active INVOKANA 100 MG ORAL TABLET 1 tablet orally daily CANAGLIFLOZIN 95865179996 Active Mitch Urbina DO Active MECLIZINE HCL 25 MG ORAL TABLET 1 po tid 3 days, then 1/2 ta b tid 3 days MECLIZINE HCL 89817040818 No Longer Active Corey SEGURA Active ALLOPURINOL 300 MG ORAL TABLET Take 1 tablet by mouth daily 2012 ALLOPURINOL 10819945395 No Longer Active Corey SEGURA Active CLONIDINE HCL 0.1 MG ORAL TABLET 1 po bid 7 days, then 1/2 t ab po bid 7 days CLONIDINE HCL 41117249530 No Longer Active Corey SEGURA Active COUMADIN 5 MG ORAL TABLET 1 tab PO daily WARFAR IN SODIUM 62722290462 Active Renee Oconnor LPN Active COUMADIN 4 MG ORAL TABLET 1 tablet daily WARFAR IN SODIUM 14317100122 No Longer Active Corey SEGURA Active POLYTRIM 61261-0.1 UNIT/ML-% OPHTHALMIC SOLUTION 1 rui p in affected eye every 3 hours while awake x 7 days POLYMYXIN B-TRIMETHOP RIM 93689382759 No Longer Active Corey SEGURA Active LOSARTAN POTASSIUM-HCTZ 100-12.5 MG ORAL TABLET 1 by m outh daily for high blood pressure LOSARTAN POTASSIUM-HCTZ 68469006700 No Longer A ctive Mitch Urbina DO Active LISINOPRIL-HYDROCHLOROTHIAZIDE 20-12.5 MG ORAL TABLET 1 tab by m outh daily LISINOPRIL-HYDROCHLOROTHIAZIDE 18892469007 No Longer Active Mitch Urbina DO Active LISINOPRIL 20 MG ORAL TABLET 1 tab po at HS LIS INOPRIL 48305763015 No Longer Active Mitch Urbina DO Active COUMADIN 5 MG ORAL TABLET 1 by mouth every other day 2 WARFARIN SODIUM 95292605533 No Longer Active Mitch Urbina DO Active COUMADIN 6 MG ORAL TABLET 1 by mouth every other day 2 WARFARIN SODIUM 06082946461 No Longer Active Mitch Urbina DO Active SIMVASTATIN 40 MG ORAL TABLET 1 tab daily at bedtime SIMVASTATIN 68463506178 Active Maria Rivas RN Active SIMVASTATIN 20 MG ORAL TABLET 1 tab daily at bedtime 2 SIMVASTATIN 24566867832 No Longer Active Mitch Urbina DO Active LOVENOX 100 MG/ML SUBCUTANEOUS SOLUTION One injection twice a da y ENOXAPARIN SODIUM 92212696735 No Longer Active Carmine Yusuf MD Active JANUVIA 50 MG ORAL TABLET Take one by mouth daily SITAGLIPTIN PHOSPHATE 00425704397 Active Renee Oconnor LPN Active JANUVIA 100 MG ORAL TABLET 1/2 by mouth every day 2011 SITAGLIPTIN PHOSPHATE 64836583709 No Longer Active Bijal Segal RN Acti ve METFORMIN HCL 500 MG ORAL TABLET 2 by mouth twice daily METFORMIN HCL 21357677602 No Longer Active Renee Oconnor LPN Active COLCRYS 0.6 MG ORAL TABLET 1 po q 6 hours prn gout pain COLCHICINE 24588256672 No Longer Active Camila Reese Active LISINOPRIL 5 MG ORAL TABLET 1 by mouth every day 11/17 LISINOPRIL 83284945731 No Longer Active Nguyen Coekman Active KLOR-CON 20 MEQ ORAL PACKET Take one by mouth daily 09/10/08 POTASSIUM CHLORIDE 77844386227 No Longer Active Nguyen Coekman Active FUROSEMIDE 40 MG ORAL TABLET 1 by mouth daily F UROSEMIDE 91214368871 No Longer Active Nguyen Coekman Active PROVIGIL 100 MG ORAL TABLET Take one by mouth daily 08/20/04 MODAFINIL 91358808470 No Longer Active Mitch Urbina DO Active BACTRIM DS 800-160 MG ORAL TABLET 1 tab by mouth twice daily 201 10/19/09 TRIMETHOPRIM-SULFAMETHOXAZOLE 27392244461 No Longer Active Elian Hays MD Active ADULT ASPIRIN LOW STRENGTH 81 MG ORAL TABLET DISINTEGR ATING 1 by mouth every daily ASPIRIN 41147279782 Active Mitch Urbina DO Ac tive METOPROLOL TARTRATE 50 MG ORAL TABLET 1 by mouth twice daily METOPROLOL TARTRATE 13252788376 Active Maria Rivas RN Ac tive BACTRIM DS 800-160 MG ORAL TABLET 1 tab by mouth twice daily 201 10/19/09 BACTRIM DS 800-160 MG ORAL TABLET 989743 TRIMETHOPRIM-SULFAMETHOXAZOLE Inactive PROVIGIL 100 MG ORAL TABLET Take one by mouth daily 08/20/04 PROVIGIL 100 MG ORAL TABLET 306594 MODAFINIL Inactive FUROSEMIDE 40 MG ORAL TABLET 1 by mouth daily FUROSEMIDE 40 MG ORAL TABLET 017182 FUROSEMIDE Inactive KLOR-CON 20 MEQ ORAL PACKET Take one by mouth daily 09/10/08 KLOR- CON 20 MEQ ORAL PACKET 6165728 POTASSIUM CHLORIDE Inactive LISINOPRIL 5 MG ORAL TABLET 1 by mouth every day 11/17 LISINOPRIL 5 MG ORAL TABLET 131742 LISINOPRIL Inactive COLCRYS 0.6 MG ORAL TABLET 1 po q 6 hours prn gout pain COLCRYS 0.6 MG ORAL TABLET 296919 COLCHICINE Inactive JANUVIA 100 MG ORAL TABLET 1/2 by mouth every day 2011 JANUVIA 100 MG ORAL TABLET SITAGLIPTIN PHOSPHATE Inactive SIMVASTATIN 20 MG ORAL TABLET 1 tab daily at bedtime 2 SIMVASTATIN 20 MG ORAL TABLET 451664 SIMVASTATIN Inactive COUMADIN 6 MG ORAL TABLET 1 by mouth every other day 2 COUMADIN 6 MG ORAL TABLET 431742 WARFARIN SODIUM Inactive COUMADIN 5 MG ORAL TABLET 1 by mouth every other day 2 COUMADIN 5 MG ORAL TABLET 430826 WARFARIN SODIUM Inactive LISINOPRIL 20 MG ORAL TABLET 1 tab po at HS LISINOPRIL 20 MG ORAL TABLET 602252 LISINOPRIL Inactive LISINOPRIL-HYDROCHLOROTHIAZIDE 20-12.5 MG ORAL TABLET 1 tab by m outh daily LISINOPRIL-HYDROCHLOROTHIAZIDE 20-12.5 MG ORAL TABLET 539084 LISINOPRIL-HYDROCHLOROTHIAZIDE Inactive POLYTRIM 72122-2.1 UNIT/ML-% OPHTHALMIC SOLUTION 1 rui p in affected eye every 3 hours while awake x 7 days POLYTRIM 1000 0-0.1 UNIT/ML-% OPHTHALMIC SOLUTION 916743 POLYMYXIN B-TRIMETHOPRIM Inactive COUMADIN 4 MG ORAL TABLET 1 tablet daily COUMADIN 4 MG ORAL TABLET 190410 WARFARIN SODIUM Inactive CLONIDINE HCL 0.1 MG ORAL TABLET 1 po bid 7 days, then 1/2 t ab po bid 7 days CLONIDINE HCL 0.1 MG ORAL TABLET 251214 CLONIDIN E HCL Inactive ALLOPURINOL 300 MG ORAL TABLET Take 1 tablet by mouth daily 2012 ALLOPURINOL 300 MG ORAL TABLET 962892 ALLOPURINOL I nactive MECLIZINE HCL 25 MG ORAL TABLET 1 po tid 3 days, then 1/2 ta b tid 3 days MECLIZINE HCL 25 MG ORAL TABLET 494099 MECLIZINE HCL Inactive AMLODIPINE BESYLATE 5 MG ORAL TABLET 1 tablet by mouth daily 201 01/20/04 AMLODIPINE BESYLATE 5 MG ORAL TABLET 549247 AMLODIPINE BESYLATE Inactive KEFLEX 500 MG ORAL CAPSULE 1 po qid K EFLEX 500 MG ORAL CAPSULE 473561 CEPHALEXIN Inactive COLCRYS 0.6 MG ORAL TABLET 1 tab qid prn gout COLCRYS 0.6 MG ORAL TABLET 756817 COLCHICINE Inactive FAMOTIDINE 20 MG ORAL TABLET by mouth twice a day 2017 FAMOTIDINE 20 MG ORAL TABLET 150486 FAMOTIDINE Inactive GLIMEPIRIDE 2 MG ORAL TABLET 1 po BID GLIMEPIRIDE 2 MG ORAL TABLET 863942 GLIMEPIRIDE Inactive LOVENOX 100 MG/ML SUBCUTANEOUS SOLUTION One injection twice a da y LOVENOX 100 MG/ML SUBCUTANEOUS SOLUTION 110197 ENOXAPAR IN SODIUM Inactive Advance Directives Directive [...] 11 .6-14.8 platelet count 238 10^3/MM^3 10*3/mm3 228-893 9650/03/29 leukocyte count, blood 6.7 10^3/MM^3 10*3/mm3 4.6-10.2 [...] mg/dL Encounters Code Encounter Date Provider Facility CPT-21709 Level 3 Est. Patient 15:18:36 [facility] [id number] Vst-Est Level IV 10:06:35 CDT Stephy Ambrose [facility] CPT-30321 [id number] Vst-Est Level IV 10:52:00 DESPATCH CLERK Stephy Ambrose [facility] CPT-61200 Level 3 Est. Patient 18:25:53 CDT Mitch luis [facility] CPT-61112 Level 3 Est. Patient 19:43:34 CDT Mitch luis [facility] CPT-38612 Level 4 Est. Patient 09:30:18 CDT Mitch W L janelle [facility] CPT-37950 Level 3 Est. Patient 15:10:14 CDT Joe kamara [facility] CPT-07695 Level 3 Est. Patient 15:03:46 CDT Joe kamara [facility]-63510 Level 3 Est. Patient 14:21:06 CDT Mitch Ambrose L janelle [facility]-92265 Level 3 Est. Patient 14:52:06 CDT Devonjustincarlitos kamara [facility]-31253 Level 3 Est. Patient 09:34:30 DESPATCH CLERK Mitch Ambrose L janelle [facility]-71819 Level 3 Est. Patient 09:37:15 CDT Mitch Ambrose L janelle [facility]-99339 Level 3 Est. Patient 17:01:00 DESPATCH CLERK Mitch Ambrose L janelle [facility] CPT-11692 Level 3 Est. Patient 13:53:19 DESPATCH CLERK Mitch Ambrose L janelle [facility] CPT-81292 Level 3 Est. Patient 19:19:37 DESPATCH CLERK Mitch W L janelle [facility] CPT-45178 Level 3 Est. Patient 13:25:53 DESPATCH CLERK Tavo toure MD [facility]-97883 Level 3 Est. Patient 18:17:28 CDT Mitch W L janelle [facility] CPT-41178 Level 3 Est. Patient 15:22:57 CDT Mitch W L janelle [facility] CPT-41875 Level 3 Est. Patient 18:21:50 CDT Mitch W L ee [facility] CPT-68506 Level 3 Est. Patient 18:20:38 CDT Mitch W L ee [facility] CPT-67318 Level 3 Est. Patient 15:37:55 CDT Mitch Arnol Nona janelle [facility] CPT-42848 Level 2 Est. Patient 15:54:44 CDT Carmine benton MD [facility] CPT-61678 Level 3 Est. Patient 21:46:01 DESPATCH CLERK Mitch luis [facility] CPT-51627 Level 3 Est. Patient 22:15:50 CDT Mitch luis [facility] CPT-36943 Level 3 Est. Patient 10:48:15 CDT Mitch luis [facility] CPT-12997 Level 3 Est. Patient 23:20:57 CDT Tavo toure MD [facility] CPT-84665 Level 3 Est. Patient 16:26:13 CDT Mitch luis [facility] Procedures Code Procedure Name Date Entry Date Standard Desc ription CPT-JTINJ Asp/Joint Injection 18:47:02 CDT CPT-32192 Venipuncture Draw Fee 09:26:17 CDT CPT-99925 PT/INR - LAB USE ONLY 13:32:49 DESPATCH CLERK CPT-85059 Venipuncture Draw Fee 13:32:49 DESPATCH CLERK CPT-44789 PT/INR - LAB USE ONLY 10:34:49 DESPATCH CLERK CPT-68035 Venipuncture Draw Fee 10:34:48 DESPATCH CLERK CPT-45127 PT/INR - LAB USE ONLY 09:22:03 DESPATCH CLERK CPT-17933 Venipuncture Draw Fee 09:22:02 DESPATCH CLERK CPT-48793 Hemoccult IFOBT - LAB USE ONLY 10:27:22 CDT CPT-30897 Venipuncture Draw Fee 08:27:08 CDT CPT-94116 Liver Profile - LAB USE ONLY 08:27:07 CDT 2 CPT-31652 Microalbumin - LAB USE ONLY 08:27:07 CDT 20 25/05/09 CPT-88337 PT/INR - LAB USE ONLY 08:27:07 CDT CPT-92744 HGBA1C - LAB USE ONLY 08:27:07 CDT CPT-59619 CBC - LAB USE ONLY 08:27:07 CDT CPT-96740 Venipuncture Draw Fee 11:09:14 CDT CPT-13559 Venipuncture Draw Fee 08:32:21 DESPATCH CLERK CPT-33369 Venipuncture Draw Fee 09:38:56 DESPATCH CLERK CPT-35211 No Charge Offi Visit 21:36:07 CDT 1 CPT-85433 Venipuncture Draw Fee 10:13:28 DESPATCH CLERK CPT-44163 Venipuncture Draw Fee 08:31:11 CDT CPT-10248 Aspir/Inject Med Joint 18:17:28 CDT CPT-32856 Venipuncture Draw Fee 10:13:30 CDT CPT-65504 Venipuncture Draw Fee 08:31:43 DESPATCH CLERK CPT-JTINJ Joint Injection 18:34:50 CDT CPT-74819 Knee 3V 12:25:09 CDT CPT-29474 Venipuncture Draw Fee 12:15:57 CDT CPT-060 Medical Surveillance Exam 21:31:43 CDT 2011 CPT-18597 Venipuncture Draw Fee 08:32:05 DESPATCH CLERK CPT-OV Office Visit 18:19:06 CDT
--- OUTSIDE RECORDS SUMMARY | 2020-01-18 12:04 | XMS REPORT | Clinical Summary ---
Author Author Admin, Mitch Leon Organization [facility] [employer] Address Unknown Phone Unavailable Allergies, Adverse Reactions, [...] Coronary atherosclerosis of unspecified type of vessel, chehalis or graft EDEMA 782.3 Resolved Mitch Urbina [...] for 1 week, then once daily FLUTICASONE MS OPIONATE 81523806275 Active Becky Sell SURVEY MANAGER Active PREDNISONE 20 MG ORAL TABLET 2 tabs daily for 3 days 1 tab d aily for 3 days PREDNISONE 52386771681 Active Becky Sell SURVEY MANAGER Active MINOXIDIL 2.5 MG ORAL TABLET 1 tablet twice daily for high b lood pressure MINOXIDIL 32813277078 Active Mitch Urbina DO Ac tive METFORMIN HCL ER 500 MG ORAL TABLET EXTENDED RELEASE 2 4 HOUR 2 tablets by mouth twice daily METFORMIN HCL 45884135122 Active Mitch Urbina DO Active GLIMEPIRIDE 4 MG ORAL TABLET 1 tablet by mouth twice daily f or diabetes GLIMEPIRIDE 79452935281 Active Mitch Urbina DO Active GLIMEPIRIDE 2 MG ORAL TABLET 1 po BID GLIMEPI RIDE 88494428427 No Longer Active Mitch Urbina DO Active AMLODIPINE BESYLATE 5 MG ORAL TABLET 1 tablet by mouth daily AMLODIPINE BESYLATE 05735718169 Active Mitch Urbina DO Active PROVIGIL 200 MG ORAL TABLET 1/2 tab po q day MODA FINIL 25677007805 Active Renee Oconnor LPN Active FAMOTIDINE 20 MG ORAL TABLET by mouth twice a day 2017 FAMOTIDINE 96230315085 No Longer Active Mitch Urbina DO Active COLCRYS 0.6 MG ORAL TABLET 1 tab qid prn gout C OLCHICINE 86969302299 No Longer Active Mitch Urbina DO Active KEFLEX 500 MG ORAL CAPSULE 1 po qid CEPHALEXI N 39946973483 No Longer Active Mitch Urbina DO Active LOSARTAN POTASSIUM 100 MG ORAL TABLET 1 pill by mouth daily, for blood pressure LOSARTAN POTASSIUM 25366100489 Active Ana Ocampo Active AMLODIPINE BESYLATE 5 MG ORAL TABLET 1 tablet by mouth daily 201 01/20/04 AMLODIPINE BESYLATE 24554915449 No Longer Active Joe fulton APRN Active MITIGARE 0.6 MG ORAL CAPSULE 2 capsules at onset of go ut pain, then take one capsule at 1 hour if symptoms persist. COLCHICINE 59 236171736 Active Mitch Urbina DO Active COUMADIN 1 MG ORAL TABLET 2 tabs orally daily with the 5mg tab to equal 7mg daily WARFARIN SODIUM 30420544326 Active Maria Briones Active INVOKANA 100 MG ORAL TABLET 1 tablet orally daily CANAGLIFLOZIN 55989215243 Active Mitch Urbina DO Active MECLIZINE HCL 25 MG ORAL TABLET 1 po tid 3 days, then 1/2 ta b tid 3 days MECLIZINE HCL 34124525133 No Longer Active Corey SEGURA Active ALLOPURINOL 300 MG ORAL TABLET Take 1 tablet by mouth daily 2012 ALLOPURINOL 48451963728 No Longer Active Corey SEGURA Active CLONIDINE HCL 0.1 MG ORAL TABLET 1 po bid 7 days, then 1/2 t ab po bid 7 days CLONIDINE HCL 51626401586 No Longer Active Corey SEGURA Active COUMADIN 5 MG ORAL TABLET 1 tab PO daily WARFAR IN SODIUM 27440043595 Active Renee Oconnor LPN Active COUMADIN 4 MG ORAL TABLET 1 tablet daily WARFAR IN SODIUM 15532108224 No Longer Active Corey SEGURA Active POLYTRIM 28176-0.1 UNIT/ML-% OPHTHALMIC SOLUTION 1 rui p in affected eye every 3 hours while awake x 7 days POLYMYXIN B-TRIMETHOP RIM 86808063852 No Longer Active Corey SEGURA Active LOSARTAN POTASSIUM-HCTZ 100-12.5 MG ORAL TABLET 1 by m outh daily for high blood pressure LOSARTAN POTASSIUM-HCTZ 78575465418 No Longer A ctive Mitch Urbina DO Active LISINOPRIL-HYDROCHLOROTHIAZIDE 20-12.5 MG ORAL TABLET 1 tab by m outh daily LISINOPRIL-HYDROCHLOROTHIAZIDE 92397218220 No Longer Active Mitch Urbina DO Active LISINOPRIL 20 MG ORAL TABLET 1 tab po at HS LIS INOPRIL 04694701645 No Longer Active Mitch Urbina DO Active COUMADIN 5 MG ORAL TABLET 1 by mouth every other day 2 WARFARIN SODIUM 06043152787 No Longer Active Mitch Urbina DO Active COUMADIN 6 MG ORAL TABLET 1 by mouth every other day 2 WARFARIN SODIUM 57902644192 No Longer Active Mitch Urbina DO Active SIMVASTATIN 40 MG ORAL TABLET 1 tab daily at bedtime SIMVASTATIN 39249912529 Active Maria Rivas RN Active SIMVASTATIN 20 MG ORAL TABLET 1 tab daily at bedtime 2 SIMVASTATIN 55638543465 No Longer Active iMtch Urbina DO Active LOVENOX 100 MG/ML SUBCUTANEOUS SOLUTION One injection twice a da y ENOXAPARIN SODIUM 89759944014 No Longer Active Carmine Yusuf MD Active JANUVIA 50 MG ORAL TABLET Take one by mouth daily SITAGLIPTIN PHOSPHATE 01133012661 Active Renee Oconnor LPN Active JANUVIA 100 MG ORAL TABLET 1/2 by mouth every day 2011 SITAGLIPTIN PHOSPHATE 19792719388 No Longer Active Bijal Segal RN Acti ve METFORMIN HCL 500 MG ORAL TABLET 2 by mouth twice daily METFORMIN HCL 21134971223 No Longer Active Renee Oconnor LPN Active COLCRYS 0.6 MG ORAL TABLET 1 po q 6 hours prn gout pain COLCHICINE 93621449668 No Longer Active Camila Reese Active LISINOPRIL 5 MG ORAL TABLET 1 by mouth every day 11/17 LISINOPRIL 12585404566 No Longer Active Nguyen Coekman Active KLOR-CON 20 MEQ ORAL PACKET Take one by mouth daily 09/10/08 POTASSIUM CHLORIDE 10065718977 No Longer Active Nguyen Coekman Active FUROSEMIDE 40 MG ORAL TABLET 1 by mouth daily F UROSEMIDE 01214802021 No Longer Active Nguyen Coekman Active PROVIGIL 100 MG ORAL TABLET Take one by mouth daily 08/20/04 MODAFINIL 98940704994 No Longer Active Mitch Urbina DO Active BACTRIM DS 800-160 MG ORAL TABLET 1 tab by mouth twice daily 201 10/19/09 TRIMETHOPRIM-SULFAMETHOXAZOLE 81006962116 No Longer Active Elian Hays MD Active ADULT ASPIRIN LOW STRENGTH 81 MG ORAL TABLET DISINTEGR ATING 1 by mouth every daily ASPIRIN 39508689490 Active Mitch Urbina DO Ac tive METOPROLOL TARTRATE 50 MG ORAL TABLET 1 by mouth twice daily METOPROLOL TARTRATE 74151360941 Active Maria Rivas RN Ac tive BACTRIM DS 800-160 MG ORAL TABLET 1 tab by mouth twice daily 201 10/19/09 BACTRIM DS 800-160 MG ORAL TABLET 930462 TRIMETHOPRIM-SULFAMETHOXAZOLE Inactive PROVIGIL 100 MG ORAL TABLET Take one by mouth daily 08/20/04 PROVIGIL 100 MG ORAL TABLET 584737 MODAFINIL Inactive FUROSEMIDE 40 MG ORAL TABLET 1 by mouth daily FUROSEMIDE 40 MG ORAL TABLET 833684 FUROSEMIDE Inactive KLOR-CON 20 MEQ ORAL PACKET Take one by mouth daily 09/10/08 KLOR- CON 20 MEQ ORAL PACKET 6563691 POTASSIUM CHLORIDE Inactive LISINOPRIL 5 MG ORAL TABLET 1 by mouth every day 11/17 LISINOPRIL 5 MG ORAL TABLET 994103 LISINOPRIL Inactive COLCRYS 0.6 MG ORAL TABLET 1 po q 6 hours prn gout pain COLCRYS 0.6 MG ORAL TABLET 206215 COLCHICINE Inactive JANUVIA 100 MG ORAL TABLET 1/2 by mouth every day 2011 JANUVIA 100 MG ORAL TABLET SITAGLIPTIN PHOSPHATE Inactive SIMVASTATIN 20 MG ORAL TABLET 1 tab daily at bedtime 2 SIMVASTATIN 20 MG ORAL TABLET 886532 SIMVASTATIN Inactive COUMADIN 6 MG ORAL TABLET 1 by mouth every other day 2 COUMADIN 6 MG ORAL TABLET 969676 WARFARIN SODIUM Inactive COUMADIN 5 MG ORAL TABLET 1 by mouth every other day 2 COUMADIN 5 MG ORAL TABLET 959433 WARFARIN SODIUM Inactive LISINOPRIL 20 MG ORAL TABLET 1 tab po at HS LISINOPRIL 20 MG ORAL TABLET 958780 LISINOPRIL Inactive LISINOPRIL-HYDROCHLOROTHIAZIDE 20-12.5 MG ORAL TABLET 1 tab by m outh daily LISINOPRIL-HYDROCHLOROTHIAZIDE 20-12.5 MG ORAL TABLET 456408 LISINOPRIL-HYDROCHLOROTHIAZIDE Inactive POLYTRIM 09647-2.1 UNIT/ML-% OPHTHALMIC SOLUTION 1 rui p in affected eye every 3 hours while awake x 7 days POLYTRIM 1000 0-0.1 UNIT/ML-% OPHTHALMIC SOLUTION 971842 POLYMYXIN B-TRIMETHOPRIM Inactive COUMADIN 4 MG ORAL TABLET 1 tablet daily COUMADIN 4 MG ORAL TABLET 977539 WARFARIN SODIUM Inactive CLONIDINE HCL 0.1 MG ORAL TABLET 1 po bid 7 days, then 1/2 t ab po bid 7 days CLONIDINE HCL 0.1 MG ORAL TABLET 266254 CLONIDIN E HCL Inactive ALLOPURINOL 300 MG ORAL TABLET Take 1 tablet by mouth daily 2012 ALLOPURINOL 300 MG ORAL TABLET 266476 ALLOPURINOL I nactive MECLIZINE HCL 25 MG ORAL TABLET 1 po tid 3 days, then 1/2 ta b tid 3 days MECLIZINE HCL 25 MG ORAL TABLET 417162 MECLIZINE HCL Inactive AMLODIPINE BESYLATE 5 MG ORAL TABLET 1 tablet by mouth daily 201 01/20/04 AMLODIPINE BESYLATE 5 MG ORAL TABLET 901271 AMLODIPINE BESYLATE Inactive KEFLEX 500 MG ORAL CAPSULE 1 po qid K EFLEX 500 MG ORAL CAPSULE 249116 CEPHALEXIN Inactive COLCRYS 0.6 MG ORAL TABLET 1 tab qid prn gout COLCRYS 0.6 MG ORAL TABLET 385080 COLCHICINE Inactive FAMOTIDINE 20 MG ORAL TABLET by mouth twice a day 2017 FAMOTIDINE 20 MG ORAL TABLET 163377 FAMOTIDINE Inactive GLIMEPIRIDE 2 MG ORAL TABLET 1 po BID GLIMEPIRIDE 2 MG ORAL TABLET 388389 GLIMEPIRIDE Inactive LOVENOX 100 MG/ML SUBCUTANEOUS SOLUTION One injection twice a da y LOVENOX 100 MG/ML SUBCUTANEOUS SOLUTION 967963 ENOXAPAR IN SODIUM Inactive Advance Directives Directive [...] 11 .6-14.8 platelet count 238 10^3/MM^3 10*3/mm3 022-915 0181/03/29 leukocyte count, blood 6.7 10^3/MM^3 10*3/mm3 4.6-10.2 [...] mg/dL Encounters Code Encounter Date Provider Facility CPT-38837 Level 3 Est. Patient 15:18:36 [facility] [id number] Vst-Est Level IV 10:06:35 CDT Stephy Ambrose [facility] CPT-10068 [id number] Vst-Est Level IV 10:52:00 CADDY PACKER Stephy Ambrose [facility] CPT-63201 Level 3 Est. Patient 18:25:53 CDT Mitch lius [facility] CPT-05454 Level 3 Est. Patient 19:43:34 CDT Mitch luis [facility] CPT-03841 Level 4 Est. Patient 09:30:18 CDT Mitch W L janelle [facility] CPT-06633 Level 3 Est. Patient 15:10:14 CDT Joe kamara [facility] CPT-10472 Level 3 Est. Patient 15:03:46 CDT Joe kamara [facility]-40358 Level 3 Est. Patient 14:21:06 CDT Mitch Ambrose L janelle [facility]-26735 Level 3 Est. Patient 14:52:06 CDT Devonjustincarlitos kamara [facility]-88803 Level 3 Est. Patient 09:34:30 CADDY PACKER Mitch Ambrose L janelle [facility]-80520 Level 3 Est. Patient 09:37:15 CDT Mitch Ambrose L janelle [facility]-51803 Level 3 Est. Patient 17:01:00 CADDY PACKER Mitch Ambrose L janelle [facility] CPT-97378 Level 3 Est. Patient 13:53:19 CADDY PACKER Mitch Ambrose L janelle [facility] CPT-43945 Level 3 Est. Patient 19:19:37 CADDY PACKER Mitch W L janelle [facility] CPT-05889 Level 3 Est. Patient 13:25:53 CADDY PACKER Tavo toure MD [facility]-81783 Level 3 Est. Patient 18:17:28 CDT Mitch W L janelle [facility] CPT-52596 Level 3 Est. Patient 15:22:57 CDT Mitch W L janelle [facility] CPT-10503 Level 3 Est. Patient 18:21:50 CDT Mitch W L ee [facility] CPT-41680 Level 3 Est. Patient 18:20:38 CDT Mitch W L ee [facility] CPT-33685 Level 3 Est. Patient 15:37:55 CDT Mitch Arnol Nona janelle [facility] CPT-19160 Level 2 Est. Patient 15:54:44 CDT Carmine benton MD [facility] CPT-01107 Level 3 Est. Patient 21:46:01 CADDY PACKER Mitch luis [facility] CPT-62957 Level 3 Est. Patient 22:15:50 CDT Mitch luis [facility] CPT-14765 Level 3 Est. Patient 10:48:15 CDT Mitch luis [facility] CPT-07204 Level 3 Est. Patient 23:20:57 CDT Tavo toure MD [facility] CPT-87723 Level 3 Est. Patient 16:26:13 CDT Mitch luis [facility] Procedures Code Procedure Name Date Entry Date Standard Desc ription CPT-JTINJ Asp/Joint Injection 18:47:02 CDT CPT-37606 Venipuncture Draw Fee 09:26:17 CDT CPT-49753 PT/INR - LAB USE ONLY 13:32:49 CADDY PACKER CPT-45209 Venipuncture Draw Fee 13:32:49 CADDY PACKER CPT-39561 PT/INR - LAB USE ONLY 10:34:49 CADDY PACKER CPT-03844 Venipuncture Draw Fee 10:34:48 CADDY PACKER CPT-83968 PT/INR - LAB USE ONLY 09:22:03 CADDY PACKER CPT-18999 Venipuncture Draw Fee 09:22:02 CADDY PACKER CPT-46388 Hemoccult IFOBT - LAB USE ONLY 10:27:22 CDT CPT-34981 Venipuncture Draw Fee 08:27:08 CDT CPT-86645 Liver Profile - LAB USE ONLY 08:27:07 CDT 2 CPT-38764 Microalbumin - LAB USE ONLY 08:27:07 CDT 20 25/05/09 CPT-80481 PT/INR - LAB USE ONLY 08:27:07 CDT CPT-39302 HGBA1C - LAB USE ONLY 08:27:07 CDT CPT-14213 CBC - LAB USE ONLY 08:27:07 CDT CPT-43971 Venipuncture Draw Fee 11:09:14 CDT CPT-61698 Venipuncture Draw Fee 08:32:21 CADDY PACKER CPT-36422 Venipuncture Draw Fee 09:38:56 CADDY PACKER CPT-57549 No Charge Offi Visit 21:36:07 CDT 1 CPT-36321 Venipuncture Draw Fee 10:13:28 CADDY PACKER CPT-37488 Venipuncture Draw Fee 08:31:11 CDT CPT-20011 Aspir/Inject Med Joint 18:17:28 CDT CPT-10622 Venipuncture Draw Fee 10:13:30 CDT CPT-83942 Venipuncture Draw Fee 08:31:43 CADDY PACKER CPT-JTINJ Joint Injection 18:34:50 CDT CPT-40071 Knee 3V 12:25:09 CDT CPT-99924 Venipuncture Draw Fee 12:15:57 CDT CPT-060 Medical Surveillance Exam 21:31:43 CDT 2011 CPT-77467 Venipuncture Draw Fee 08:32:05 CADDY PACKER CPT-OV Office Visit 18:19:06 CDT
--- OUTSIDE RECORDS SUMMARY | 2020-01-18 12:05 | XMS REPORT | Clinical Summary ---
Author Author Admin, Mitch Leon Organization [facility] Address Unknown Phone Unavailable Allergies, Adverse [...] SEROMA 998.13 Resolved Mitch Urbina DO Se maroi complicating a procedure HYPERLIPIDEMIA 272.4 Active Renan [...] Coronary atherosclerosis of unspecified type of vessel, [place] or graft EDEMA 782.3 Resolved Mitch [...] Urbina DO OLECRANON BURSITIS, RIGHT ICD-726.33 Inactive Mithc Urbina DO UNSPECIFIED ANEMIA ICD-285.9 Inactive Mitch [...] for 1 week, then once daily FLUTICASONE MD OPIONATE 05537220971 Active Becky Sell [employer]ATMENT PLANT OPERATOR Active PREDNISONE 20 MG ORAL TABLET 2 tabs daily for 3 days 1 tab d aily for 3 days PREDNISONE 43034417590 Active Becky Sell [employer] PLANT OPERATOR Active MINOXIDIL 2.5 MG ORAL TABLET 1 tablet twice daily for high b lood pressure MINOXIDIL 59695491911 Active Mitch Urbina DO Ac tive METFORMIN HCL ER 500 MG ORAL TABLET EXTENDED RELEASE 2 4 HOUR 2 tablets by mouth twice daily METFORMIN HCL 01170838788 Active Mitch Urbina DO Active GLIMEPIRIDE 4 MG ORAL TABLET 1 tablet by mouth twice daily f or diabetes GLIMEPIRIDE 33174841079 Active Mitch Urbina DO Active GLIMEPIRIDE 2 MG ORAL TABLET 1 po BID GLIMEPI RIDE 52121087122 No Longer Active Mitch Urbina DO Active AMLODIPINE BESYLATE 5 MG ORAL TABLET 1 tablet by mouth daily AMLODIPINE BESYLATE 83645178937 Active Mitch Urbina DO Active PROVIGIL 200 MG ORAL TABLET 1/2 tab po q day MODA FINIL 05318413641 Active Renee Oconnor LPN Active FAMOTIDINE 20 MG ORAL TABLET by mouth twice a day 2017 FAMOTIDINE 66227579949 No Longer Active Mitch Urbina DO Active COLCRYS 0.6 MG ORAL TABLET 1 tab qid prn gout C OLCHICINE 86008647942 No Longer Active Mitch Urbina DO Active KEFLEX 500 MG ORAL CAPSULE 1 po qid CEPHALEXI N 51297435178 No Longer Active Mitch Urbina DO Active LOSARTAN POTASSIUM 100 MG ORAL TABLET 1 pill by mouth daily, for blood pressure LOSARTAN POTASSIUM 99688593349 Active Ana Ocampo Active AMLODIPINE BESYLATE 5 MG ORAL TABLET 1 tablet by mouth daily 201 01/20/04 AMLODIPINE BESYLATE 72748731341 No Longer Active Joe fulton APRN Active MITIGARE 0.6 MG ORAL CAPSULE 2 capsules at onset of go ut pain, then take one capsule at 1 hour if symptoms persist. COLCHICINE 59 017380276 Active Mitch Urbina DO Active COUMADIN 1 MG ORAL TABLET 2 tabs orally daily with the 5mg tab to equal 7mg daily WARFARIN SODIUM 13838870093 Active Maria Briones Active INVOKANA 100 MG ORAL TABLET 1 tablet orally daily CANAGLIFLOZIN 81605496133 Active Mitch Urbina DO Active MECLIZINE HCL 25 MG ORAL TABLET 1 po tid 3 days, then 1/2 ta b tid 3 days MECLIZINE HCL 43959223632 No Longer Active Corey SEGURA Active ALLOPURINOL 300 MG ORAL TABLET Take 1 tablet by mouth daily 2012 ALLOPURINOL 51926823848 No Longer Active Corey SEGURA Active CLONIDINE HCL 0.1 MG ORAL TABLET 1 po bid 7 days, then 1/2 t ab po bid 7 days CLONIDINE HCL 44486860364 No Longer Active Corey SEGURA Active COUMADIN 5 MG ORAL TABLET 1 tab PO daily WARFAR IN SODIUM 35343243798 Active Renee Oconnor LPN Active COUMADIN 4 MG ORAL TABLET 1 tablet daily WARFAR IN SODIUM 38587362772 No Longer Active Corey SEGURA Active POLYTRIM 68129-6.1 UNIT/ML-% OPHTHALMIC SOLUTION 1 rui p in affected eye every 3 hours while awake x 7 days POLYMYXIN B-TRIMETHOP RIM 49993024916 No Longer Active Corey SEGURA Active LOSARTAN POTASSIUM-HCTZ 100-12.5 MG ORAL TABLET 1 by m outh daily for high blood pressure LOSARTAN POTASSIUM-HCTZ 52897691575 No Longer A ctive Mitch Urbina DO Active LISINOPRIL-HYDROCHLOROTHIAZIDE 20-12.5 MG ORAL TABLET 1 tab by m outh daily LISINOPRIL-HYDROCHLOROTHIAZIDE 25815284734 No Longer Active Mitch Urbina DO Active LISINOPRIL 20 MG ORAL TABLET 1 tab po at HS LIS INOPRIL 97182977809 No Longer Active Mitch Urbina DO Active COUMADIN 5 MG ORAL TABLET 1 by mouth every other day 2 WARFARIN SODIUM 19527514710 No Longer Active Mitch Urbina DO Active COUMADIN 6 MG ORAL TABLET 1 by mouth every other day 2 WARFARIN SODIUM 27744641382 No Longer Active Mitch Urbina DO Active SIMVASTATIN 40 MG ORAL TABLET 1 tab daily at bedtime SIMVASTATIN 30446357508 Active Maria Rivas RN Active SIMVASTATIN 20 MG ORAL TABLET 1 tab daily at bedtime 2 SIMVASTATIN 99846810257 No Longer Active Mitch Urbina DO Active LOVENOX 100 MG/ML SUBCUTANEOUS SOLUTION One injection twice a da y ENOXAPARIN SODIUM 77445499797 No Longer Active Carmine Yusuf MD Active JANUVIA 50 MG ORAL TABLET Take one by mouth daily SITAGLIPTIN PHOSPHATE 39302743954 Active Renee Oconnor LPN Active JANUVIA 100 MG ORAL TABLET 1/2 by mouth every day 2011 SITAGLIPTIN PHOSPHATE 13195293491 No Longer Active Bijal Segal RN Acti ve METFORMIN HCL 500 MG ORAL TABLET 2 by mouth twice daily METFORMIN HCL 07320879349 No Longer Active Renee Oconnor LPN Active COLCRYS 0.6 MG ORAL TABLET 1 po q 6 hours prn gout pain COLCHICINE 75992417175 No Longer Active Camila Reese Active LISINOPRIL 5 MG ORAL TABLET 1 by mouth every day 11/17 LISINOPRIL 90633139405 No Longer Active Nguyen Ana Active KLOR-CON 20 MEQ ORAL PACKET Take one by mouth daily 09/10/08 POTASSIUM CHLORIDE 18441443365 No Longer Active Nguyen Ana Active FUROSEMIDE 40 MG ORAL TABLET 1 by mouth daily F UROSEMIDE 32339349167 No Longer Active Nguyen Ana Active PROVIGIL 100 MG ORAL TABLET Take one by mouth daily 08/20/04 MODAFINIL 44190342614 No Longer Active Mitch Urbina DO Active BACTRIM DS 800-160 MG ORAL TABLET 1 tab by mouth twice daily 201 10/19/09 TRIMETHOPRIM-SULFAMETHOXAZOLE 19395632348 No Longer Active Elian Hays MD Active ADULT ASPIRIN LOW STRENGTH 81 MG ORAL TABLET DISINTEGR ATING 1 by mouth every daily ASPIRIN 15324692936 Active Mitch Urbina DO Ac tive METOPROLOL TARTRATE 50 MG ORAL TABLET 1 by mouth twice daily METOPROLOL TARTRATE 82770035380 Active Maria Rivas RN Ac tive BACTRIM DS 800-160 MG ORAL TABLET 1 tab by mouth twice daily 201 10/19/09 BACTRIM DS 800-160 MG ORAL TABLET 329519 TRIMETHOPRIM-SULFAMETHOXAZOLE Inactive PROVIGIL 100 MG ORAL TABLET Take one by mouth daily 08/20/04 PROVIGIL 100 MG ORAL TABLET 131826 MODAFINIL Inactive FUROSEMIDE 40 MG ORAL TABLET 1 by mouth daily FUROSEMIDE 40 MG ORAL TABLET 720232 FUROSEMIDE Inactive KLOR-CON 20 MEQ ORAL PACKET Take one by mouth daily 09/10/08 KLOR- CON 20 MEQ ORAL PACKET 2179394 POTASSIUM CHLORIDE Inactive LISINOPRIL 5 MG ORAL TABLET 1 by mouth every day 11/17 LISINOPRIL 5 MG ORAL TABLET 230936 LISINOPRIL Inactive COLCRYS 0.6 MG ORAL TABLET 1 po q 6 hours prn gout pain COLCRYS 0.6 MG ORAL TABLET 357052 COLCHICINE Inactive JANUVIA 100 MG ORAL TABLET 1/2 by mouth every day 2011 JANUVIA 100 MG ORAL TABLET SITAGLIPTIN PHOSPHATE Inactive SIMVASTATIN 20 MG ORAL TABLET 1 tab daily at bedtime 2 SIMVASTATIN 20 MG ORAL TABLET 855512 SIMVASTATIN Inactive COUMADIN 6 MG ORAL TABLET 1 by mouth every other day 2 COUMADIN 6 MG ORAL TABLET 573571 WARFARIN SODIUM Inactive COUMADIN 5 MG ORAL TABLET 1 by mouth every other day 2 COUMADIN 5 MG ORAL TABLET 305484 WARFARIN SODIUM Inactive LISINOPRIL 20 MG ORAL TABLET 1 tab po at HS LISINOPRIL 20 MG ORAL TABLET 437926 LISINOPRIL Inactive LISINOPRIL-HYDROCHLOROTHIAZIDE 20-12.5 MG ORAL TABLET 1 tab by m outh daily LISINOPRIL-HYDROCHLOROTHIAZIDE 20-12.5 MG ORAL TABLET 731001 LISINOPRIL-HYDROCHLOROTHIAZIDE Inactive POLYTRIM 46591-3.1 UNIT/ML-% OPHTHALMIC SOLUTION 1 rui p in affected eye every 3 hours while awake x 7 days POLYTRIM 1000 0-0.1 UNIT/ML-% OPHTHALMIC SOLUTION 749720 POLYMYXIN B-TRIMETHOPRIM Inactive COUMADIN 4 MG ORAL TABLET 1 tablet daily COUMADIN 4 MG ORAL TABLET 863882 WARFARIN SODIUM Inactive CLONIDINE HCL 0.1 MG ORAL TABLET 1 po bid 7 days, then 1/2 t ab po bid 7 days CLONIDINE HCL 0.1 MG ORAL TABLET 147854 CLONIDIN E HCL Inactive ALLOPURINOL 300 MG ORAL TABLET Take 1 tablet by mouth daily 2012 ALLOPURINOL 300 MG ORAL TABLET 381762 ALLOPURINOL I nactive MECLIZINE HCL 25 MG ORAL TABLET 1 po tid 3 days, then 1/2 ta b tid 3 days MECLIZINE HCL 25 MG ORAL TABLET 189608 MECLIZINE HCL Inactive AMLODIPINE BESYLATE 5 MG ORAL TABLET 1 tablet by mouth daily 201 01/20/04 AMLODIPINE BESYLATE 5 MG ORAL TABLET 745212 AMLODIPINE BESYLATE Inactive KEFLEX 500 MG ORAL CAPSULE 1 po qid K EFLEX 500 MG ORAL CAPSULE 001896 CEPHALEXIN Inactive COLCRYS 0.6 MG ORAL TABLET 1 tab qid prn gout COLCRYS 0.6 MG ORAL TABLET 419684 COLCHICINE Inactive FAMOTIDINE 20 MG ORAL TABLET by mouth twice a day 2017 FAMOTIDINE 20 MG ORAL TABLET 744814 FAMOTIDINE Inactive GLIMEPIRIDE 2 MG ORAL TABLET 1 po BID GLIMEPIRIDE 2 MG ORAL TABLET 946546 GLIMEPIRIDE Inactive LOVENOX 100 MG/ML SUBCUTANEOUS SOLUTION One injection twice a da y LOVENOX 100 MG/ML SUBCUTANEOUS SOLUTION 879151 ENOXAPAR IN SODIUM Inactive Advance Directives Directive [...] 11 .6-14.8 platelet count 238 10^3/MM^3 10*3/mm3 629-640 5394/03/29 leukocyte count, blood 6.7 10^3/MM^3 10*3/mm3 4.6-10.2 [...] mg/dL Encounters Code Encounter Date Provider Facility CPT-55467 Level 3 Est. [facility] 15:18:36 [facility] [id number] Vst-Est Level IV 10:06:35 CDT Stephy Ambrose [facility] CPT-15061 [id number] Vst-Est Level IV 10:52:00 LOSS PREVENTION DETECTIVE Stephy Ambrose [facility] CPT-55115 Level 3 Est. Patient 18:25:53 CDT Mitch luis [facility] CPT-11212 Level 3 Est. Patient 19:43:34 CDT Mitch luis [facility] CPT-64596 Level 4 Est. Patient 09:30:18 CDT Mitch W L janelle [facility] CPT-42178 Level 3 Est. Patient 15:10:14 CDT Joe kamara [facility]-09765 Level 3 Est. Patient 15:03:46 CDT Joe kamara [facility]-11995 Level 3 Est. Patient 14:21:06 CDT Mitch Ambrose L janelle [facility]-69423 Level 3 Est. Patient 14:52:06 CDT Devonsonya Jason kamara [facility] CPT-78783 Level 3 Est. Patient 09:34:30 LOSS PREVENTION DETECTIVE Mitch luis [facility]-69964 Level 3 Est. Patient 09:37:15 CDT Mitch Ambrose L janelle [facility]-41898 Level 3 Est. Patient 17:01:00 LOSS PREVENTION DETECTIVE Mitch luis [facility] CPT-82379 Level 3 Est. Patient 13:53:19 LOSS PREVENTION DETECTIVE Mitch Ambrose L janelle [facility] CPT-07566 Level 3 Est. Patient 19:19:37 LOSS PREVENTION DETECTIVE Mitch W L janelle [facility] CPT-15370 Level 3 Est. Patient 13:25:53 LOSS PREVENTION DETECTIVE Tavo toure MD [facility]-85887 Level 3 Est. Patient 18:17:28 CDT Mitch W Nona luis [facility] CPT-95847 Level 3 Est. Patient 15:22:57 CDT Mitch Ambrose L janelle [facility] CPT-14150 Level 3 Est. Patient 18:21:50 CDT Mitch W L ee [facility] CPT-51322 Level 3 Est. Patient 18:20:38 CDT Mitch W L ee [facility] CPT-51328 Level 3 Est. Patient 15:37:55 CDT Mitch luis [facility] CPT-65948 Level 2 Est. Patient 15:54:44 CDT Carmine benton MD [facility] CPT-09827 Level 3 Est. Patient 21:46:01 LOSS PREVENTION DETECTIVE Mitch luis [facility] CPT-63064 Level 3 Est. Patient 22:15:50 CDT Mitch luis [facility] CPT-58977 Level 3 Est. Patient 10:48:15 CDT Mitch luis [facility] CPT-85123 Level 3 Est. Patient 23:20:57 CDT Tavo toure MD [facility] CPT-19906 Level 3 Est. Patient 16:26:13 CDT Mitch luis [facility] Procedures Code Procedure Name Date Entry Date Standard Desc ription CPT-JTINJ Asp/Joint Injection 18:47:02 CDT CPT-94966 Venipuncture Draw Fee 09:26:17 CDT CPT-82891 PT/INR - LAB USE ONLY 13:32:49 LOSS PREVENTION DETECTIVE CPT-11251 Venipuncture Draw Fee 13:32:49 LOSS PREVENTION DETECTIVE CPT-38323 PT/INR - LAB USE ONLY 10:34:49 LOSS PREVENTION DETECTIVE CPT-53634 Venipuncture Draw Fee 10:34:48 LOSS PREVENTION DETECTIVE CPT-60725 PT/INR - LAB USE ONLY 09:22:03 LOSS PREVENTION DETECTIVE CPT-51583 Venipuncture Draw Fee 09:22:02 LOSS PREVENTION DETECTIVE CPT-03844 Hemoccult IFOBT - LAB USE ONLY 10:27:22 CDT CPT-50014 Venipuncture Draw Fee 08:27:08 CDT CPT-50445 Liver Profile - LAB USE ONLY 08:27:07 CDT 2 CPT-37639 Microalbumin - LAB USE ONLY 08:27:07 CDT 20 25/05/09 CPT-43846 PT/INR - LAB USE ONLY 08:27:07 CDT CPT-83351 HGBA1C - LAB USE ONLY 08:27:07 CDT CPT-47446 CBC - LAB USE ONLY 08:27:07 CDT CPT-94092 Venipuncture Draw Fee 11:09:14 CDT CPT-82381 Venipuncture Draw Fee 08:32:21 LOSS PREVENTION DETECTIVE CPT-70899 Venipuncture Draw Fee 09:38:56 LOSS PREVENTION DETECTIVE CPT-75629 No Charge Offi Visit 21:36:07 CDT 1 CPT-30178 Venipuncture Draw Fee 10:13:28 LOSS PREVENTION DETECTIVE CPT-97457 Venipuncture Draw Fee 08:31:11 CDT CPT-50385 Aspir/Inject Med Joint 18:17:28 CDT CPT-94727 Venipuncture Draw Fee 10:13:30 CDT CPT-14301 Venipuncture Draw Fee 08:31:43 LOSS PREVENTION DETECTIVE CPT-JTINJ Joint Injection 18:34:50 CDT CPT-36111 Knee 3V 12:25:09 CDT CPT-53526 Venipuncture Draw Fee 12:15:57 CDT CPT-060 Medical Surveillance Exam 21:31:43 CDT 2011 CPT-67970 Venipuncture Draw Fee 08:32:05 LOSS PREVENTION DETECTIVE 2011/11/ 23 CPT-OV Office Visit 18:19:06 CDT
--- OUTSIDE RECORDS SUMMARY | 2020-01-18 12:05 | XMS REPORT | Clinical Summary ---
Author Author Admin, Mitch Leon Organization [facility] Address Unknown Phone Unavailable Allergies, Adverse [...] Coronary atherosclerosis of unspecified type of vessel, [place] or graft EDEMA 782.3 Resolved Mitch Urbina [...] Generic Name NDC Status Provider Patient Instruction INVOKANA 100 MG ORAL TABS 1 tablet orally daily CANAGLIFLOZIN 89836788800 Active Kathie Juan RPT,RMA Active MINOXIDIL 2.5 MG TABS 1 tablet daily for high blood pressure 10/23 MINOXIDIL 99667692598 Active Mitch Arnol Carlitos DO Active AMLODIPINE BESYLATE 5 MG TABS 1 tablet by mouth daily AMLODIPINE BESYLATE 97352572399 Active Domi Rivera MA Active MECLIZINE HCL 25 MG TAB 1 po tid 3 days, then 1/2 tab tid 3 days MECLIZINE HCL 54005085049 No Longer Active Corey SEGURA Active ALLOPURINOL 300 MG TABS Take 1 tablet by mouth daily 2 ALLOPURINOL 89677337774 No Longer Active Corey SEGURA Activ e CLONIDINE HCL 0.1 MG TABS 1 po bid 7 days, then 1/2 tab po b id 7 days CLONIDINE HCL 48239019385 No Longer Active Corey SEGURA Active COUMADIN 5 MG TABS 1 tab PO daily WARFARIN SODIUM 96266860906 Active Mitch Urbina DO Active COUMADIN 4 MG TABS 1 tablet daily WARFARIN SODI UM 66872255404 No Longer Active Corey SEGURA Active POLYTRIM 01355-4.1 UNIT/ML-% SOLN 1 drop in affected e ye every 3 hours while awake x 7 days POLYMYXIN B-TRIMETHOPRIM 67180653705 N o Longer Active Corey SEGURA Active LOSARTAN POTASSIUM-HCTZ 100-12.5 MG TABS 1 by mouth da rocky for high blood pressure LOSARTAN POTASSIUM-HCTZ 05741310364 Active Stephy Urbina DO Active LISINOPRIL-HYDROCHLOROTHIAZIDE 20-12.5 MG TABS 1 tab by mouth da rocky LISINOPRIL-HYDROCHLOROTHIAZIDE 37584139332 No Longer Active Mitch luis DO Active LISINOPRIL 20 MG TABS 1 tab po at HS LISINOPRIL 58410913891 No Longer Active Mitch Urbina DO Active COUMADIN 5 MG TABS 1 by mouth every other day WARFARIN SODIUM 57290570774 No Longer Active Mitch Urbina DO Active COUMADIN 6 MG TABS 1 by mouth every other day WARFARIN SODIUM 22737516562 No Longer Active Mitch Urbina DO Active COLCRYS 0.6 MG TABS 1 tab qid prn gout COLCHICINE 53659714087 Active Corey SEGURA Active SIMVASTATIN 40 MG TABS 1 tab daily at bedtime S IMVASTATIN 74554154129 Active Domi Rivera MA Active SIMVASTATIN 20 MG TABS 1 tab daily at bedtime S IMVASTATIN 98615252397 No Longer Active Mitch Urbina DO Active LOVENOX 100 MG/ML SC SOLN One injection twice a day 09/15/15 ENOXAPARIN SODIUM 07799870176 No Longer Active Carmine Navarrete ctive JANUVIA 50 MG TABS Take one by mouth daily DIEGO GLIPTIN PHOSPHATE 06632268000 Active Kathie Juan RPT,RMA Active JANUVIA 100 MG TABS 1/2 by mouth every day DIEGO GLIPTIN PHOSPHATE 27623147711 No Longer Active Bijal Segal RN Active METFORMIN HCL 500 MG TABS 2 by mouth twice daily METFORMIN HCL 84131277971 Active Mitch Urbina DO Active GLIMEPIRIDE 4 MG TABS 1 tab po bid GLIMEPIRIDE 212758 54333 Active Mitch Urbina DO Active COLCRYS 0.6 MG TABS 1 po q 6 hours prn gout pain 03/02 COLCHICINE 05819726242 No Longer Active Camila Reese Active LISINOPRIL 5 MG TABS 1 by mouth every day LISIN OPRIL 60123869530 No Longer Active Nguyenmolly Perez Active KLOR-CON 20 MEQ PACK Take one by mouth daily 8 POTASSIUM CHLORIDE 46958755504 No Longer Active Nguyenmolly Perez Active FUROSEMIDE 40 MG TABS 1 by mouth daily FUROSEMI DE 56154546239 No Longer Active Nguyen Perez Active PROVIGIL 200 MG TABS 1/2 tab po q day MODAFINIL 62183 461147 Active Kathie Juan RPT,RMA Active PROVIGIL 100 MG TABS Take one by mouth daily MO DAFINIL 60192384266 No Longer Active Mitch Urbina DO Active BACTRIM DS 800-160 MG TAB 1 tab by mouth twice daily 2 TRIMETHOPRIM-SULFAMETHOXAZOLE 10915235649 No Longer Active Renan Hays MD Active FAMOTIDINE 20 MG TABS by mouth twice a day FAMOTI DINE 73471405225 Active Mitch Urbina DO Active ADULT ASPIRIN LOW STRENGTH 81 MG TBDP 1 by mouth every daily ASPIRIN 44503711017 Active Mitch Urbina DO Active METOPROLOL TARTRATE 50 MG TABS 1 by mouth twice daily METOPROLOL TARTRATE 53384463372 Active Kathie Juan RPT,RMA Acti ve BACTRIM DS 800-160 MG TAB 1 tab by mouth twice daily 2 BACTRIM DS 800-160 MG TAB 320755 TRIMETHOPRIM-SULFAMETHOXAZOLE Inac tive PROVIGIL 100 MG TABS Take one by mouth daily 4 PROVIGIL 100 MG TABS 922596 MODAFINIL Inactive FUROSEMIDE 40 MG TABS 1 by mouth daily FU ROSEMIDE 40 MG TABS 492707 FUROSEMIDE Inactive KLOR-CON 20 MEQ PACK Take one by mouth daily 8 KLOR-CON 20 MEQ PACK 627614 POTASSIUM CHLORIDE Inactive LISINOPRIL 5 MG TABS 1 by mouth every day LISINOPRIL 5 MG TABS 284293 LISINOPRIL Inactive COLCRYS 0.6 MG TABS 1 po q 6 hours prn gout pain 03/02 COLCRYS 0.6 MG TABS 784337 COLCHICINE Inactive JANUVIA 100 MG TABS 1/2 by mouth every day JANUVI A 100 MG TABS SITAGLIPTIN PHOSPHATE Inactive SIMVASTATIN 20 MG TABS 1 tab daily at bedtime SIMVASTATIN 20 MG TABS 632649 SIMVASTATIN Inactive COUMADIN 6 MG TABS 1 by mouth every other day COUMADIN 6 MG TABS 357921 WARFARIN SODIUM Inactive COUMADIN 5 MG TABS 1 by mouth every other day COUMADIN 5 MG TABS 535462 WARFARIN SODIUM Inactive LISINOPRIL 20 MG TABS 1 tab po at HS [place]OKI NOPRIL 20 MG TABS 126716 LISINOPRIL Inactive LISINOPRIL-HYDROCHLOROTHIAZIDE 20-12.5 MG TABS 1 tab by mouth da rocky LISINOPRIL-HYDROCHLOROTHIAZIDE 20-12.5 MG TABS 432323 LISINOPRIL-HYDROCHLOROTHIAZIDE Inactive POLYTRIM 35746-3.1 UNIT/ML-% SOLN 1 drop in affected e ye every 3 hours while awake x 7 days POLYTRIM 16255-2.1 UNIT/ML-% SOLN 87086 7 POLYMYXIN B-TRIMETHOPRIM Inactive COUMADIN 4 MG TABS 1 tablet daily COUMADIN 4 MG TABS 433834 WARFARIN SODIUM Inactive CLONIDINE HCL 0.1 MG TABS 1 po bid 7 days, then 1/2 tab po b id 7 days CLONIDINE HCL 0.1 MG TABS 684922 CLONIDINE HCL I nactive ALLOPURINOL 300 MG TABS Take 1 tablet by mouth daily 2 ALLOPURINOL 300 MG TABS 468567 ALLOPURINOL Inactive MECLIZINE HCL 25 MG TAB 1 po tid 3 days, then 1/2 tab tid 3 days MECLIZINE HCL 25 MG TAB 111344 MECLIZINE HCL Inactive LOVENOX 100 MG/ML SC SOLN One injection twice a day 09/15/15 LOVENOX 100 MG/ML SC SOLN 041618 ENOXAPARIN SODIUM Inactive Vital Signs Date Name [...] 142-424 Lab Report: CBC W/DIFF - Hematology erythrocyte (RBC) count 4.83 10^6/MM^3 10*6/mm3 4.69-6.1 3 hemoglobin, blood 13.0 g/dL 13.5-17.5 hematocrit, blood 39.5 % 41.0-53.0 mean corpuscular volume, RBC 82 fL 80-97 mean corpuscular hemoglobin, RBC 27.0 pg 27. 0-31.2 mean corpuscular hemoglobin concentration, RBC 33.0 G/DL % 31.8-35.4 red blood cell distribution width 17.2 % 11 .6-14.8 platelet count 283 10^3/MM^3 10*3/mm3 544-013 2418/03/27 lymphocytes as percent of blood leukocytes 19.7 % 20.5-51.1 monocytes as percent of blood leukocytes 7.3 % 1.7-9.3 neutrophils as percent of blood leukocytes 69.3 % 42.2-75.2 leukocyte count, blood 6.2 10^3/MM^3 10*3/mm3 4.6-10.2 Lab Report: CBC, Comp. Metabolic Panel, Prostatic Specific Ag - Chemistry sodium, serum 141 mmol/L 363-245 3804/07/06 potassium, serum 4.4 mmol/L 3.5-5.2 chloride, serum [...] - Chem istry sodium, serum 136 mmol/L 584-826 9263/01/14 carbon dioxide, venous blood 25.4 mmol/L 21.0-32 [...] Report: HGBA1C, Lipid Panel - Chemis try triglyceride, serum, fasting 186 mg/dL 30-200 HDL cholesterol, serum 34 mg/dL 32-96 LDL cholesterol, serum 49 mg/dL 0-130 hemoglobin A1C, blood, as % of total hemoglobin 7.0 % 4.3-6.0 cholesterol, serum 120 mg/dL 130-200 Lab Report: HGBA1C, Prothrombin Time - C [...] 1.0-3.5 Encounters Code Encounter Date Provider Facility CPT-41859 Level 3 Est. Patient 09:34:30 DRY YARD WORKER Mitch luis [facility] CPT-13575 Level 3 Est. Patient 09:37:15 CDT Mitch luis [facility] CPT-53539 Level 3 Est. Patient 17:01:00 DRY YARD WORKER Mitch W L janelle DO [facility] CPT-60772 Level 3 Est. Patient 13:53:19 DRY YARD WORKER Mitch W L ee DO [facility] CPT-19263 Level 3 Est. Patient 19:19:37 DRY YARD WORKER Mitch W L janelle DO [facility] CPT-40634 Level 3 Est. Patient 13:25:53 DRY YARD WORKER Tavo toure MD [facility] CPT-35098 Level 3 Est. Patient 18:17:28 CDT Mitch W L ee [facility] CPT-50659 Level 3 Est. Patient 15:22:57 CDT Mitch W L ee [facility] CPT-26568 Level 3 Est. Patient 18:21:50 CDT Mitch W L janelle [facility] CPT-54009 Level 3 Est. Patient 18:20:38 CDT Mitch W L janelle [facility] CPT-77914 Level 3 Est. Patient 15:37:55 CDT Mitch W L janelle [facility] CPT-12281 Level 2 Est. Patient 15:54:44 CDT Carmine benton MD [facility] CPT-66301 Level 3 Est. Patient 21:46:01 DRY YARD WORKER Mitch luis [facility] CPT-75266 Level 3 Est. Patient 22:15:50 CDT Mitch W L janelle [facility] CPT-41356 Level 3 Est. Patient 10:48:15 CDT Mitch W L ee [facility] CPT-13813 Level 3 Est. Patient 23:20:57 CDT Tavo toure MD [facility] CPT-87891 Level 3 Est. Patient 16:26:13 CDT Mitch luis [facility] Procedures Code Procedure Name Date Entry Date Standard Desc ription CPT-75752 Venipuncture Draw Fee 09:38:56 DRY YARD WORKER CPT-63408 No Charge Offi Visit 21:36:07 CDT 1 CPT-77749 Venipuncture Draw Fee 10:13:28 DRY YARD WORKER CPT-97807 Venipuncture Draw Fee 08:31:11 CDT CPT-34274 Aspir/Inject Med Joint 18:17:28 CDT CPT-06893 Venipuncture Draw Fee 10:13:30 CDT CPT-94510 Venipuncture Draw Fee 08:31:43 DRY YARD WORKER CPT-JTINJ Joint Injection 18:34:50 CDT CPT-12502 Knee 3V 12:25:09 CDT CPT-23539 Venipuncture Draw Fee 12:15:57 CDT CPT-060 Medical Surveillance Exam 21:31:43 CDT 2011 CPT-86960 Venipuncture Draw Fee 08:32:05 DRY YARD WORKER CPT-OV Office Visit 18:19:06 CDT
--- OUTSIDE RECORDS SUMMARY | 2020-01-18 12:05 | XMS REPORT | Clinical Summary ---
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 PREDNISONE 20 MG ORAL TABLET 2 tabs daily for 3 days 1 tab d aily for 3 days PREDNISONE 77124748023 No Longer Active Becky Sell TURNAROUND PLANNER Active MINOXIDIL 2.5 MG ORAL TABLET 1 tablet twice daily for high b lood pressure MINOXIDIL 78291371069 Active Mitch Urbina DO Ac tive METFORMIN HCL ER 500 MG ORAL TABLET EXTENDED RELEASE 2 4 HOUR 2 tablets by mouth twice daily METFORMIN HCL 56721933663 Active Mitch Urbina DO Active GLIMEPIRIDE 4 MG ORAL TABLET 1 tablet by mouth twice daily f or diabetes GLIMEPIRIDE 09471692768 Active Mitch Urbina DO Active GLIMEPIRIDE 2 MG ORAL TABLET 1 po BID GLIMEPI RIDE 61281263834 No Longer Active Mitch Urbina DO Active AMLODIPINE BESYLATE 5 MG ORAL TABLET 1 tablet by mouth daily AMLODIPINE BESYLATE 92632122224 Active Mitch Urbina DO Active PROVIGIL 200 MG ORAL TABLET 1/2 tab po q day MODA FINIL 62822639665 Active Renee Oconnor LPN Active FAMOTIDINE 20 MG ORAL TABLET by mouth twice a day 2017 FAMOTIDINE 79522626448 No Longer Active Mitch Urbina DO Active COLCRYS 0.6 MG ORAL TABLET 1 tab qid prn gout C OLCHICINE 28205701149 No Longer Active Mitch Urbina DO Active KEFLEX 500 MG ORAL CAPSULE 1 po qid CEPHALEXI N 15052659691 No Longer Active Mitch Urbina DO Active LOSARTAN POTASSIUM 100 MG ORAL TABLET 1 pill by mouth daily, for blood pressure LOSARTAN POTASSIUM 72358529999 Active Ana Ocampo Active AMLODIPINE BESYLATE 5 MG ORAL TABLET 1 tablet by mouth daily 201 01/20/04 AMLODIPINE BESYLATE 26501887702 No Longer Active Joe fulton APRN Active MITIGARE 0.6 MG ORAL CAPSULE 2 capsules at onset of go ut pain, then take one capsule at 1 hour if symptoms persist. COLCHICINE 59 333437688 Active Mitch Urbina DO Active COUMADIN 1 MG ORAL TABLET 2 tabs orally daily with the 5mg tab to equal 7mg daily WARFARIN SODIUM 41145770030 Active Maria Briones Active INVOKANA 100 MG ORAL TABLET 1 tablet orally daily CANAGLIFLOZIN 19961255297 Active Mitch Urbina DO Active MECLIZINE HCL 25 MG ORAL TABLET 1 po tid 3 days, then 1/2 ta b tid 3 days MECLIZINE HCL 73334519168 No Longer Active Corey SEGURA Active ALLOPURINOL 300 MG ORAL TABLET Take 1 tablet by mouth daily 2012 ALLOPURINOL 78443233480 No Longer Active Corey SEGURA Active CLONIDINE HCL 0.1 MG ORAL TABLET 1 po bid 7 days, then 1/2 t ab po bid 7 days CLONIDINE HCL 84176308816 No Longer Active Corey SEGURA Active COUMADIN 5 MG ORAL TABLET 1 tab PO daily WARFAR IN SODIUM 18672136134 Active Renee Oconnor LPN Active COUMADIN 4 MG ORAL TABLET 1 tablet daily WARFAR IN SODIUM 07761717481 No Longer Active Corey SEGURA Active POLYTRIM 14200-8.1 UNIT/ML-% OPHTHALMIC SOLUTION 1 rui p in affected eye every 3 hours while awake x 7 days POLYMYXIN B-TRIMETHOP RIM 32441711862 No Longer Active Corey SEGURA Active LOSARTAN POTASSIUM-HCTZ 100-12.5 MG ORAL TABLET 1 by m outh daily for high blood pressure LOSARTAN POTASSIUM-HCTZ 60907439923 No Longer A ctive Mitch Urbina DO Active LISINOPRIL-HYDROCHLOROTHIAZIDE 20-12.5 MG ORAL TABLET 1 tab by m outh daily LISINOPRIL-HYDROCHLOROTHIAZIDE 28140728673 No Longer Active Mitch Urbina DO Active LISINOPRIL 20 MG ORAL TABLET 1 tab po at HS LIS INOPRIL 42656914249 No Longer Active Mitch Urbina DO Active COUMADIN 5 MG ORAL TABLET 1 by mouth every other day 2 WARFARIN SODIUM 81949664202 No Longer Active Mitch Urbina DO Active COUMADIN 6 MG ORAL TABLET 1 by mouth every other day 2 WARFARIN SODIUM 76010209101 No Longer Active Mitch Urbina DO Active SIMVASTATIN 40 MG ORAL TABLET 1 tab daily at bedtime SIMVASTATIN 24586590766 Active Maria Rivas RN Active SIMVASTATIN 20 MG ORAL TABLET 1 tab daily at bedtime 2 SIMVASTATIN 51244979319 No Longer Active Mitch Urbina DO Active LOVENOX 100 MG/ML SUBCUTANEOUS SOLUTION One injection twice a da y ENOXAPARIN SODIUM 79864683363 No Longer Active Carmine Yusuf MD Active JANUVIA 50 MG ORAL TABLET Take one by mouth daily SITAGLIPTIN PHOSPHATE 50244299032 Active Renee Oconnor LPN Active JANUVIA 100 MG ORAL TABLET 1/2 by mouth every day 2011 SITAGLIPTIN PHOSPHATE 06223230862 No Longer Active Bijal Segal RN Acti ve METFORMIN HCL 500 MG ORAL TABLET 2 by mouth twice daily METFORMIN HCL 47957008593 No Longer Active Renee Oconnor LPN Active COLCRYS 0.6 MG ORAL TABLET 1 po q 6 hours prn gout pain COLCHICINE 16925487034 No Longer Active Camila Reese Active LISINOPRIL 5 MG ORAL TABLET 1 by mouth every day 11/17 LISINOPRIL 16464866655 No Longer Active Nguyen Ana Active KLOR-CON 20 MEQ ORAL PACKET Take one by mouth daily 09/10/08 POTASSIUM CHLORIDE 14201129566 No Longer Active Nguyen Ana Active FUROSEMIDE 40 MG ORAL TABLET 1 by mouth daily F UROSEMIDE 46456242652 No Longer Active Nguyen Ana Active PROVIGIL 100 MG ORAL TABLET Take one by mouth daily 08/20/04 MODAFINIL 16740129439 No Longer Active Mitch Urbina DO Active BACTRIM DS 800-160 MG ORAL TABLET 1 tab by mouth twice daily 201 10/19/09 TRIMETHOPRIM-SULFAMETHOXAZOLE 33046080098 No Longer Active Elian Hays MD Active ADULT ASPIRIN LOW STRENGTH 81 MG ORAL TABLET DISINTEGR ATING 1 by mouth every daily ASPIRIN 96226083999 Active Mitch Urbina DO Ac tive METOPROLOL TARTRATE 50 MG ORAL TABLET 1 by mouth twice daily METOPROLOL TARTRATE 77263437605 Active Maria Rivas RN Ac tive BACTRIM DS 800-160 MG ORAL TABLET 1 tab by mouth twice daily 201 10/19/09 BACTRIM DS 800-160 MG ORAL TABLET 189298 TRIMETHOPRIM-SULFAMETHOXAZOLE Inactive PROVIGIL 100 MG ORAL TABLET Take one by mouth daily 08/20/04 PROVIGIL 100 MG ORAL TABLET 047688 MODAFINIL Inactive FUROSEMIDE 40 MG ORAL TABLET 1 by mouth daily FUROSEMIDE 40 MG ORAL TABLET 731161 FUROSEMIDE Inactive KLOR-CON 20 MEQ ORAL PACKET Take one by mouth daily 09/10/08 KLOR- CON 20 MEQ ORAL PACKET 5539462 POTASSIUM CHLORIDE Inactive LISINOPRIL 5 MG ORAL TABLET 1 by mouth every day 11/17 LISINOPRIL 5 MG ORAL TABLET 710736 LISINOPRIL Inactive COLCRYS 0.6 MG ORAL TABLET 1 po q 6 hours prn gout pain COLCRYS 0.6 MG ORAL TABLET 104552 COLCHICINE Inactive JANUVIA 100 MG ORAL TABLET 1/2 by mouth every day 2011 JANUVIA 100 MG ORAL TABLET SITAGLIPTIN PHOSPHATE Inactive SIMVASTATIN 20 MG ORAL TABLET 1 tab daily at bedtime 2 SIMVASTATIN 20 MG ORAL TABLET 839487 SIMVASTATIN Inactive COUMADIN 6 MG ORAL TABLET 1 by mouth every other day 2 COUMADIN 6 MG ORAL TABLET 039976 WARFARIN SODIUM Inactive COUMADIN 5 MG ORAL TABLET 1 by mouth every other day 2 COUMADIN 5 MG ORAL TABLET 687730 WARFARIN SODIUM Inactive LISINOPRIL 20 MG ORAL TABLET 1 tab po at HS LISINOPRIL 20 MG ORAL TABLET 307979 LISINOPRIL Inactive LISINOPRIL-HYDROCHLOROTHIAZIDE 20-12.5 MG ORAL TABLET 1 tab by m outh daily LISINOPRIL-HYDROCHLOROTHIAZIDE 20-12.5 MG ORAL TABLET 595715 LISINOPRIL-HYDROCHLOROTHIAZIDE Inactive POLYTRIM 40799-4.1 UNIT/ML-% OPHTHALMIC SOLUTION 1 rui p in affected eye every 3 hours while awake x 7 days POLYTRIM 1000 0-0.1 UNIT/ML-% OPHTHALMIC SOLUTION 936766 POLYMYXIN B-TRIMETHOPRIM Inactive COUMADIN 4 MG ORAL TABLET 1 tablet daily COUMADIN 4 MG ORAL TABLET 738880 WARFARIN SODIUM Inactive CLONIDINE HCL 0.1 MG ORAL TABLET 1 po bid 7 days, then 1/2 t ab po bid 7 days CLONIDINE HCL 0.1 MG ORAL TABLET 344684 CLONIDIN E HCL Inactive ALLOPURINOL 300 MG ORAL TABLET Take 1 tablet by mouth daily 2012 ALLOPURINOL 300 MG ORAL TABLET 868686 ALLOPURINOL I nactive MECLIZINE HCL 25 MG ORAL TABLET 1 po tid 3 days, then 1/2 ta b tid 3 days MECLIZINE HCL 25 MG ORAL TABLET 578216 MECLIZINE HCL Inactive AMLODIPINE BESYLATE 5 MG ORAL TABLET 1 tablet by mouth daily 201 01/20/04 AMLODIPINE BESYLATE 5 MG ORAL TABLET 014819 AMLODIPINE BESYLATE Inactive KEFLEX 500 MG ORAL CAPSULE 1 po qid K EFLEX 500 MG ORAL CAPSULE 523881 CEPHALEXIN Inactive COLCRYS 0.6 MG ORAL TABLET 1 tab qid prn gout COLCRYS 0.6 MG ORAL TABLET 527626 COLCHICINE Inactive FAMOTIDINE 20 MG ORAL TABLET by mouth twice a day 2017 FAMOTIDINE 20 MG ORAL TABLET 529967 FAMOTIDINE Inactive GLIMEPIRIDE 2 MG ORAL TABLET 1 po BID GLIMEPIRIDE 2 MG ORAL TABLET 500756 GLIMEPIRIDE Inactive LOVENOX 100 MG/ML SUBCUTANEOUS SOLUTION One injection twice a da y LOVENOX 100 MG/ML SUBCUTANEOUS SOLUTION 617291 ENOXAPAR IN SODIUM Inactive PREDNISONE 20 MG ORAL TABLET 2 tabs daily for 3 days 1 tab d aily for 3 days PREDNISONE 20 MG ORAL TABLET 360262 PREDNISONE Inactive Advance Directives Directive Description Start [...] 11 .6-14.8 platelet count 238 10^3/MM^3 10*3/mm3 609-108 6175/03/29 leukocyte count, blood 6.7 10^3/MM^3 10*3/mm3 4.6-10.2 [...] mg/dL Encounters Code Encounter Date Provider Facility CPT-72338 Level 3 Est. Patient 15:18:36 CDT Becky ll ANNIE [facility] CPT-19672 [id number] Vst-Est Level IV 10:06:35 CDT Bru robinson [facility] CPT-26888 [id number] Vst-Est Level IV 10:52:00 BARKING MACHINE [employer]EDER Stephy [facility] CPT-03261 Level 3 Est. Patient 18:25:53 CDT Micth luis [facility] CPT-03205 Level 3 Est. Patient 19:43:34 CDT Mitch W L janelle [facility] CPT-32755 Level 4 Est. Patient 09:30:18 CDT Mitch Ambrose L janelle [facility] CPT-77840 Level 3 Est. Patient 15:10:14 CDT Joe Jason kamara [facility] [place] CPT-24989 Level 3 Est. Patient 15:03:46 CDT Joe Jason [facility] CPT-75683 Level 3 Est. Patient 14:21:06 CDT Mitch Ambrose L janelle [facility]-73228 Level 3 Est. Patient 14:52:06 CDT [facility] Level 3 Est. Patient 09:34:30 BARKING MACHINE FEEDER Mitch luis [facility]-83757 Level 3 Est. Patient 09:37:15 CDT Mitch Ambrose L janelle [facility] CPT-77903 Level 3 Est. Patient 17:01:00 BARKING MACHINE FEEDER Mitch luis [facility] CPT-43411 Level 3 Est. Patient 13:53:19 BARKING MACHINE FEEDER Mitch luis [facility] CPT-66170 Level 3 Est. Patient 19:19:37 BARKING MACHINE FEEDER Mitch luis [facility] CPT-49760 Level 3 Est. Patient 13:25:53 BARKING MACHINE FEEDER Tavo toure MD [facility] CPT-08832 Level 3 Est. Patient 18:17:28 CDT Mitch Ambrose L janelle [facility] CPT-20246 Level 3 Est. Patient 15:22:57 CDT Mitch Ambrose L janelle [facility] CPT-74431 Level 3 Est. Patient 18:21:50 CDT Mitch Ambrose L janelle [facility] CPT-69423 Level 3 Est. Patient 18:20:38 CDT Mitch luis [facility] CPT-37681 Level 3 Est. Patient 15:37:55 CDT Mitch luis [facility] CPT-93975 Level 2 Est. Patient 15:54:44 CDT Carmine benton MD [facility] CPT-21175 Level 3 Est. Patient 21:46:01 BARKING MACHINE FEEDER Mitch luis [facility] CPT-81267 Level 3 Est. Patient 22:15:50 CDT Mitch Arnol Nona luis [facility] CPT-09201 Level 3 Est. Patient 10:48:15 CDT Mitch luis [facility] CPT-39583 Level 3 Est. Patient 23:20:57 CDT Tavo toure MD [facility] CPT-56093 Level 3 Est. Patient 16:26:13 CDT Mitch Castellano janelle [facility] Procedures Code Procedure Name Date Entry Date Standard Desc ription CPT-JTINJ Asp/Joint Injection 18:47:02 CDT CPT-69581 Venipuncture Draw Fee 09:26:17 CDT CPT-48791 PT/INR - LAB USE ONLY 13:32:49 B[employer]ING [employer]ACH[employer]ER CPT-53277 Venipuncture Draw Fee 13:32:49 BARKING MACHINE [employer]EDER CPT-81300 PT/INR - LAB USE ONLY 10:34:49 BARKING MACHINE [employer]ER CPT-55972 Venipuncture Draw Fee 10:34:48 BARKING MACHINE [employer]ER CPT-08375 PT/INR - LAB USE ONLY 09:22:03 BARKING MACHINE [employer]ER CPT-80831 Venipuncture Draw Fee 09:22:02 BARKING MACHINE [employer]ER CPT-04691 Hemoccult IFOBT - LAB USE ONLY 10:27:22 CDT CPT-85128 Venipuncture Draw Fee 08:27:08 CDT CPT-87456 Liver Profile - LAB USE ONLY 08:27:07 CDT 2 CPT-37429 Microalbumin - LAB USE ONLY 08:27:07 CDT 20 25/05/09 CPT-98373 PT/INR - LAB USE ONLY 08:27:07 CDT CPT-81744 HGBA1C - LAB USE ONLY 08:27:07 CDT CPT-18412 CBC - LAB USE ONLY 08:27:07 CDT CPT-15002 Venipuncture Draw Fee 11:09:14 CDT CPT-84133 Venipuncture Draw Fee 08:32:21 BARKING MACHINE [employer]EDER CPT-48395 Venipuncture Draw Fee 09:38:56 BARKING MACHINE FEEDER CPT-35489 No Charge Offi Visit 21:36:07 CDT 1 CPT-42344 Venipuncture Draw Fee 10:13:28 BARKING MACHINE FEEDER CPT-28289 Venipuncture Draw Fee 08:31:11 CDT CPT-01133 Aspir/Inject Med Joint 18:17:28 CDT CPT-38790 Venipuncture Draw Fee 10:13:30 CDT CPT-40084 Venipuncture Draw Fee 08:31:43 BARKING MACHINE FEEDER CPT-JTINJ Joint Injection 18:34:50 CDT CPT-49900 Knee 3V 12:25:09 CDT CPT-68407 Venipuncture Draw Fee 12:15:57 CDT CPT-060 Medical Surveillance Exam 21:31:43 CDT 2011 CPT-95119 Venipuncture Draw Fee 08:32:05 BARKING MACHINE FEEDER CPT-OV Office Visit 18:19:06 CDT
--- OUTSIDE RECORDS SUMMARY | 2020-01-18 12:05 | XMS REPORT | Clinical Summary ---
Author Author Admin, Mitch Leon Organization [facility] [employer] Address Unknown Phone Unavailable Allergies, Adverse Reactions, [...] for 1 week, then once daily FLUTICASONE CO OPIONATE 55421710521 Active Becky Sell SENIOR TRAINER Active PREDNISONE 20 MG ORAL TABLET 2 tabs daily for 3 days 1 tab d aily for 3 days PREDNISONE 69609461457 Active Becky Sell SENIOR TRAINER Active MINOXIDIL 2.5 MG ORAL TABLET 1 tablet twice daily for high b lood pressure MINOXIDIL 34762911933 Active Mitch Urbina DO Ac tive METFORMIN HCL ER 500 MG ORAL TABLET EXTENDED RELEASE 2 4 HOUR 2 tablets by mouth twice daily METFORMIN HCL 14409277142 Active Mitch Urbina DO Active GLIMEPIRIDE 4 MG ORAL TABLET 1 tablet by mouth twice daily f or diabetes GLIMEPIRIDE 29292536948 Active Mitch Urbina DO Active GLIMEPIRIDE 2 MG ORAL TABLET 1 po BID GLIMEPI RIDE 28271924262 No Longer Active Mitch Urbina DO Active AMLODIPINE BESYLATE 5 MG ORAL TABLET 1 tablet by mouth daily AMLODIPINE BESYLATE 71841603987 Active Mitch Urbina DO Active PROVIGIL 200 MG ORAL TABLET 1/2 tab po q day MODA FINIL 43033746463 Active Renee Oconnor LPN Active FAMOTIDINE 20 MG ORAL TABLET by mouth twice a day 2017 FAMOTIDINE 58202915837 No Longer Active Mitch Urbina DO Active COLCRYS 0.6 MG ORAL TABLET 1 tab qid prn gout C OLCHICINE 30311308009 No Longer Active Mitch Urbina DO Active KEFLEX 500 MG ORAL CAPSULE 1 po qid CEPHALEXI N 75005507588 No Longer Active Mitch Urbina DO Active LOSARTAN POTASSIUM 100 MG ORAL TABLET 1 pill by mouth daily, for blood pressure LOSARTAN POTASSIUM 19846501722 Active Ana Ocampo Active AMLODIPINE BESYLATE 5 MG ORAL TABLET 1 tablet by mouth daily 201 01/20/04 AMLODIPINE BESYLATE 88263527190 No Longer Active Joe fulton APRN Active MITIGARE 0.6 MG ORAL CAPSULE 2 capsules at onset of go ut pain, then take one capsule at 1 hour if symptoms persist. COLCHICINE 59 221037677 Active Mitch Urbina DO Active COUMADIN 1 MG ORAL TABLET 2 tabs orally daily with the 5mg tab to equal 7mg daily WARFARIN SODIUM 54589892902 Active Maria Briones Active INVOKANA 100 MG ORAL TABLET 1 tablet orally daily CANAGLIFLOZIN 36593851498 Active Mitch Urbina DO Active MECLIZINE HCL 25 MG ORAL TABLET 1 po tid 3 days, then 1/2 ta b tid 3 days MECLIZINE HCL 03248606487 No Longer Active Corey SEGURA Active ALLOPURINOL 300 MG ORAL TABLET Take 1 tablet by mouth daily 2012 ALLOPURINOL 90041313507 No Longer Active Corey SEGURA Active CLONIDINE HCL 0.1 MG ORAL TABLET 1 po bid 7 days, then 1/2 t ab po bid 7 days CLONIDINE HCL 74238254371 No Longer Active Corey SEGURA Active COUMADIN 5 MG ORAL TABLET 1 tab PO daily WARFAR IN SODIUM 65422311710 Active Renee Oconnor LPN Active COUMADIN 4 MG ORAL TABLET 1 tablet daily WARFAR IN SODIUM 43426005761 No Longer Active Corey SEGURA Active POLYTRIM 03125-0.1 UNIT/ML-% OPHTHALMIC SOLUTION 1 rui p in affected eye every 3 hours while awake x 7 days POLYMYXIN B-TRIMETHOP RIM 47659147871 No Longer Active Corey SEGURA Active LOSARTAN POTASSIUM-HCTZ 100-12.5 MG ORAL TABLET 1 by m outh daily for high blood pressure LOSARTAN POTASSIUM-HCTZ 57503550023 No Longer A ctive Mitch Urbina DO Active LISINOPRIL-HYDROCHLOROTHIAZIDE 20-12.5 MG ORAL TABLET 1 tab by m outh daily LISINOPRIL-HYDROCHLOROTHIAZIDE 94371149678 No Longer Active Mitch Urbina DO Active LISINOPRIL 20 MG ORAL TABLET 1 tab po at HS LIS INOPRIL 98078851183 No Longer Active Mitch Urbina DO Active COUMADIN 5 MG ORAL TABLET 1 by mouth every other day 2 WARFARIN SODIUM 01691760444 No Longer Active Mitch Urbina DO Active COUMADIN 6 MG ORAL TABLET 1 by mouth every other day 2 WARFARIN SODIUM 39996280421 No Longer Active Mitch Urbina DO Active SIMVASTATIN 40 MG ORAL TABLET 1 tab daily at bedtime SIMVASTATIN 46210995859 Active Maria Rivas RN Active SIMVASTATIN 20 MG ORAL TABLET 1 tab daily at bedtime 2 SIMVASTATIN 96753830471 No Longer Active Mitch Urbina DO Active LOVENOX 100 MG/ML SUBCUTANEOUS SOLUTION One injection twice a da y ENOXAPARIN SODIUM 83470176532 No Longer Active Carmine Yusuf MD Active JANUVIA 50 MG ORAL TABLET Take one by mouth daily SITAGLIPTIN PHOSPHATE 78848594101 Active Renee Oconnor LPN Active JANUVIA 100 MG ORAL TABLET 1/2 by mouth every day 2011 SITAGLIPTIN PHOSPHATE 40204346814 No Longer Active iBjal Segal RN Acti ve METFORMIN HCL 500 MG ORAL TABLET 2 by mouth twice daily METFORMIN HCL 41777493285 No Longer Active Renee Oconnor LPN Active COLCRYS 0.6 MG ORAL TABLET 1 po q 6 hours prn gout pain COLCHICINE 29264394681 No Longer Active Camila Reese Active LISINOPRIL 5 MG ORAL TABLET 1 by mouth every day 11/17 LISINOPRIL 78258523802 No Longer Active Nguyen Coekman Active KLOR-CON 20 MEQ ORAL PACKET Take one by mouth daily 09/10/08 POTASSIUM CHLORIDE 74874200024 No Longer Active Nguyen Coekman Active FUROSEMIDE 40 MG ORAL TABLET 1 by mouth daily F UROSEMIDE 45996764919 No Longer Active Nguyen Coekman Active PROVIGIL 100 MG ORAL TABLET Take one by mouth daily 08/20/04 MODAFINIL 95903160277 No Longer Active Mitch Urbina DO Active BACTRIM DS 800-160 MG ORAL TABLET 1 tab by mouth twice daily 201 10/19/09 TRIMETHOPRIM-SULFAMETHOXAZOLE 31416553268 No Longer Active Elian Hays MD Active ADULT ASPIRIN LOW STRENGTH 81 MG ORAL TABLET DISINTEGR ATING 1 by mouth every daily ASPIRIN 71427750469 Active Mitch Urbina DO Ac tive METOPROLOL TARTRATE 50 MG ORAL TABLET 1 by mouth twice daily METOPROLOL TARTRATE 94058491458 Active Maria Rivas RN Ac tive BACTRIM DS 800-160 MG ORAL TABLET 1 tab by mouth twice daily 201 10/19/09 BACTRIM DS 800-160 MG ORAL TABLET 783215 TRIMETHOPRIM-SULFAMETHOXAZOLE Inactive PROVIGIL 100 MG ORAL TABLET Take one by mouth daily 08/20/04 PROVIGIL 100 MG ORAL TABLET 972915 MODAFINIL Inactive FUROSEMIDE 40 MG ORAL TABLET 1 by mouth daily FUROSEMIDE 40 MG ORAL TABLET 784363 FUROSEMIDE Inactive KLOR-CON 20 MEQ ORAL PACKET Take one by mouth daily 09/10/08 KLOR- CON 20 MEQ ORAL PACKET 0876265 POTASSIUM CHLORIDE Inactive LISINOPRIL 5 MG ORAL TABLET 1 by mouth every day 11/17 LISINOPRIL 5 MG ORAL TABLET 484575 LISINOPRIL Inactive COLCRYS 0.6 MG ORAL TABLET 1 po q 6 hours prn gout pain COLCRYS 0.6 MG ORAL TABLET 812631 COLCHICINE Inactive JANUVIA 100 MG ORAL TABLET 1/2 by mouth every day 2011 JANUVIA 100 MG ORAL TABLET SITAGLIPTIN PHOSPHATE Inactive SIMVASTATIN 20 MG ORAL TABLET 1 tab daily at bedtime 2 SIMVASTATIN 20 MG ORAL TABLET 191549 SIMVASTATIN Inactive COUMADIN 6 MG ORAL TABLET 1 by mouth every other day 2 COUMADIN 6 MG ORAL TABLET 106743 WARFARIN SODIUM Inactive COUMADIN 5 MG ORAL TABLET 1 by mouth every other day 2 COUMADIN 5 MG ORAL TABLET 293845 WARFARIN SODIUM Inactive LISINOPRIL 20 MG ORAL TABLET 1 tab po at HS LISINOPRIL 20 MG ORAL TABLET 845069 LISINOPRIL Inactive LISINOPRIL-HYDROCHLOROTHIAZIDE 20-12.5 MG ORAL TABLET 1 tab by m outh daily LISINOPRIL-HYDROCHLOROTHIAZIDE 20-12.5 MG ORAL TABLET 191082 LISINOPRIL-HYDROCHLOROTHIAZIDE Inactive POLYTRIM 64403-1.1 UNIT/ML-% OPHTHALMIC SOLUTION 1 rui p in affected eye every 3 hours while awake x 7 days POLYTRIM 1000 0-0.1 UNIT/ML-% OPHTHALMIC SOLUTION 280179 POLYMYXIN B-TRIMETHOPRIM Inactive COUMADIN 4 MG ORAL TABLET 1 tablet daily COUMADIN 4 MG ORAL TABLET 145448 WARFARIN SODIUM Inactive CLONIDINE HCL 0.1 MG ORAL TABLET 1 po bid 7 days, then 1/2 t ab po bid 7 days CLONIDINE HCL 0.1 MG ORAL TABLET 083604 CLONIDIN E HCL Inactive ALLOPURINOL 300 MG ORAL TABLET Take 1 tablet by mouth daily 2012 ALLOPURINOL 300 MG ORAL TABLET 000617 ALLOPURINOL I nactive MECLIZINE HCL 25 MG ORAL TABLET 1 po tid 3 days, then 1/2 ta b tid 3 days MECLIZINE HCL 25 MG ORAL TABLET 326093 MECLIZINE HCL Inactive AMLODIPINE BESYLATE 5 MG ORAL TABLET 1 tablet by mouth daily 201 01/20/04 AMLODIPINE BESYLATE 5 MG ORAL TABLET 278422 AMLODIPINE BESYLATE Inactive KEFLEX 500 MG ORAL CAPSULE 1 po qid K EFLEX 500 MG ORAL CAPSULE 630737 CEPHALEXIN Inactive COLCRYS 0.6 MG ORAL TABLET 1 tab qid prn gout COLCRYS 0.6 MG ORAL TABLET 864998 COLCHICINE Inactive FAMOTIDINE 20 MG ORAL TABLET by mouth twice a day 2017 FAMOTIDINE 20 MG ORAL TABLET 096132 FAMOTIDINE Inactive GLIMEPIRIDE 2 MG ORAL TABLET 1 po BID GLIMEPIRIDE 2 MG ORAL TABLET 054496 GLIMEPIRIDE Inactive LOVENOX 100 MG/ML SUBCUTANEOUS SOLUTION One injection twice a da y LOVENOX 100 MG/ML SUBCUTANEOUS SOLUTION 028640 ENOXAPAR IN SODIUM Inactive Advance Directives Directive [...] 11 .6-14.8 platelet count 238 10^3/MM^3 10*3/mm3 800-038 0378/03/29 leukocyte count, blood 6.7 10^3/MM^3 10*3/mm3 4.6-10.2 [...] mg/dL Encounters Code Encounter Date Provider Facility CPT-65454 Level 3 Est. Patient 15:18:36 [facility] 03986-Bas Vst-Est Level IV 10:06:35 CDT Stephy Ambrose [facility] CPT-16724 20584-Xqg Vst-Est Level IV 10:52:00 EMAIL CAMPAIGN MANAGER Stephy Ambrose [facility] CPT-26551 Level 3 Est. Patient 18:25:53 CDT Mitch luis [facility] CPT-95339 Level 3 Est. Patient 19:43:34 CDT Mitch luis [facility] CPT-69240 Level 4 Est. Patient 09:30:18 CDT Mitch W L janelle [facility] CPT-23986 Level 3 Est. Patient 15:10:14 CDT Joe kamara [facility] CPT-82623 Level 3 Est. Patient 15:03:46 CDT Joe kamara [facility]-94686 Level 3 Est. Patient 14:21:06 CDT Mitch Ambrose L janelle [facility]-98604 Level 3 Est. Patient 14:52:06 CDT Devonjustincarlitos kamara [facility]-50878 Level 3 Est. Patient 09:34:30 EMAIL CAMPAIGN MANAGER Mitch Ambrose L janelle [facility]-51460 Level 3 Est. Patient 09:37:15 CDT Mitch Ambrose L janelle [facility]-44856 Level 3 Est. Patient 17:01:00 EMAIL CAMPAIGN MANAGER Mitch Ambrose L janelle [facility] CPT-02487 Level 3 Est. Patient 13:53:19 EMAIL CAMPAIGN MANAGER Mitch Ambrose L janelle [facility] CPT-70377 Level 3 Est. Patient 19:19:37 EMAIL CAMPAIGN MANAGER Mitch W L janelle [facility] CPT-97019 Level 3 Est. Patient 13:25:53 EMAIL CAMPAIGN MANAGER Tavo toure MD [facility]-49171 Level 3 Est. Patient 18:17:28 CDT Mitch W L janelle [facility] CPT-91458 Level 3 Est. Patient 15:22:57 CDT Mitch W L janelle [facility] CPT-88072 Level 3 Est. Patient 18:21:50 CDT Mitch W L ee [facility] CPT-08574 Level 3 Est. Patient 18:20:38 CDT Mitch W L ee [facility] CPT-72180 Level 3 Est. Patient 15:37:55 CDT Mitch Arnol Nona janelle [facility] CPT-83924 Level 2 Est. Patient 15:54:44 CDT Carmine bentno MD [facility] CPT-36456 Level 3 Est. Patient 21:46:01 EMAIL CAMPAIGN MANAGER Mitch luis [facility] CPT-78972 Level 3 Est. Patient 22:15:50 CDT Mitch luis [facility] CPT-45072 Level 3 Est. Patient 10:48:15 CDT Mitch luis [facility] CPT-74026 Level 3 Est. Patient 23:20:57 CDT Tavo toure MD [facility] CPT-72800 Level 3 Est. Patient 16:26:13 CDT Mitch luis [facility] Procedures Code Procedure Name Date Entry Date Standard Desc ription CPT-JTINJ Asp/Joint Injection 18:47:02 CDT CPT-01929 Venipuncture Draw Fee 09:26:17 CDT CPT-50921 PT/INR - LAB USE ONLY 13:32:49 EMAIL CAMPAIGN MANAGER CPT-10106 Venipuncture Draw Fee 13:32:49 EMAIL CAMPAIGN MANAGER CPT-48703 PT/INR - LAB USE ONLY 10:34:49 EMAIL CAMPAIGN MANAGER CPT-68833 Venipuncture Draw Fee 10:34:48 EMAIL CAMPAIGN MANAGER CPT-88418 PT/INR - LAB USE ONLY 09:22:03 EMAIL CAMPAIGN MANAGER CPT-76090 Venipuncture Draw Fee 09:22:02 EMAIL CAMPAIGN MANAGER CPT-17931 Hemoccult IFOBT - LAB USE ONLY 10:27:22 CDT CPT-81315 Venipuncture Draw Fee 08:27:08 CDT CPT-46574 Liver Profile - LAB USE ONLY 08:27:07 CDT 2 CPT-04484 Microalbumin - LAB USE ONLY 08:27:07 CDT 20 25/05/09 CPT-17561 PT/INR - LAB USE ONLY 08:27:07 CDT CPT-32636 HGBA1C - LAB USE ONLY 08:27:07 CDT CPT-85955 CBC - LAB USE ONLY 08:27:07 CDT CPT-58401 Venipuncture Draw Fee 11:09:14 CDT CPT-22453 Venipuncture Draw Fee 08:32:21 EMAIL CAMPAIGN MANAGER CPT-98749 Venipuncture Draw Fee 09:38:56 EMAIL CAMPAIGN MANAGER CPT-09633 No Charge Offi Visit 21:36:07 CDT 1 CPT-11236 Venipuncture Draw Fee 10:13:28 EMAIL CAMPAIGN MANAGER CPT-19227 Venipuncture Draw Fee 08:31:11 CDT CPT-63466 Aspir/Inject Med Joint 18:17:28 CDT CPT-75072 Venipuncture Draw Fee 10:13:30 CDT CPT-77111 Venipuncture Draw Fee 08:31:43 EMAIL CAMPAIGN MANAGER CPT-JTINJ Joint Injection 18:34:50 CDT CPT-48452 Knee 3V 12:25:09 CDT CPT-99256 Venipuncture Draw Fee 12:15:57 CDT CPT-060 Medical Surveillance Exam 21:31:43 CDT 2011 CPT-91870 Venipuncture Draw Fee 08:32:05 EMAIL CAMPAIGN MANAGER CPT-OV Office Visit 18:19:06 CDT
--- OUTSIDE RECORDS SUMMARY | 2020-01-18 12:06 | XMS REPORT | Clinical Summary ---
Author Author Admin, Mitch Leon Organization [facility] Address Unknown Phone Unavailable Allergies, Adverse Reactions, [...] Coronary atherosclerosis of unspecified type of vessel, tribal or graft EDEMA 782.3 Resolved Mitch Urbina DO Ed antonia DEGENERATIVE JOINT DISEASE, KNEES, 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 3 Active Mitch Arnol Urbina DO Osteoarthrosis, unsp ecified whether generalized or localized, involving lower leg DIZZINESS 780.4 Resolved Imtch Arnol Urbina DO Dizziness and giddiness CAROTID [...] 1 tablet by mouth daily AMLODIPINE BESYLATE 12552929478 No Longer Active Joe Williamson APRN Active MITIGARE 0.6 MG ORAL CAPS 2 capsules at onset of gout pain, then take one capsule at 1 hour if symptoms persist. COLCHICINE 59 393181723 Active Mitch Urbina DO Active COUMADIN 1 MG TAB 2 tabs orally daily with the 5mg tab to equal 7mg daily WARFARIN SODIUM 76028589661 Active Mitch Urbina DO Active COLCRYS 0.6 MG TABS 1 tab qid prn gout COLCHICINE 65627055742 Active Norma Cazares Active INVOKANA 100 MG ORAL TABS 1 tablet orally daily CANAGLIFLOZIN 41265051939 Active Brenda Gaymerman Active MINOXIDIL 2.5 MG TABS 1 tablet daily for high blood pressure 10/23 MINOXIDIL 10876196107 Active Ana Wallace Active MECLIZINE HCL 25 MG TAB 1 po tid 3 days, then 1/2 tab tid 3 days MECLIZINE HCL 03460305431 No Longer Active Corey SEGURA Active ALLOPURINOL 300 MG TABS Take 1 tablet by mouth daily 2 ALLOPURINOL 20487802568 No Longer Active Corey SEGURA Activ e CLONIDINE HCL 0.1 MG TABS 1 po bid 7 days, then 1/2 tab po b id 7 days CLONIDINE HCL 39645404722 No Longer Active Corey SEGURA Active COUMADIN 5 MG TABS 1 tab PO daily WARFARIN SODIUM 35497396762 Active Mitch Urbina DO Active COUMADIN 4 MG TABS 1 tablet daily WARFARIN SODI UM 02157909106 No Longer Active Corey SEGURA Active POLYTRIM 82106-9.1 UNIT/ML-% SOLN 1 drop in affected e ye every 3 hours while awake x 7 days POLYMYXIN B-TRIMETHOPRIM 24436094124 N o Longer Active Corey SEGURA Active LOSARTAN POTASSIUM-HCTZ 100-12.5 MG TABS 1 by mouth da rocky for high blood pressure LOSARTAN POTASSIUM-HCTZ 79458989839 Active Stephy Urbina DO Active LISINOPRIL-HYDROCHLOROTHIAZIDE 20-12.5 MG TABS 1 tab by mouth da rocky LISINOPRIL-HYDROCHLOROTHIAZIDE 51874778304 No Longer Active Mitch luis DO Active LISINOPRIL 20 MG TABS 1 tab po at HS LISINOPRIL 01925817567 No Longer Active Mitch Urbina DO Active COUMADIN 5 MG TABS 1 by mouth every other day WARFARIN SODIUM 38431262178 No Longer Active Mitch Urbina DO Active COUMADIN 6 MG TABS 1 by mouth every other day WARFARIN SODIUM 89618338890 No Longer Active Mitch Urbina DO Active SIMVASTATIN 40 MG TABS 1 tab daily at bedtime S IMVASTATIN 66514802654 Active Mitch Urbina DO Active SIMVASTATIN 20 MG TABS 1 tab daily at bedtime S IMVASTATIN 19689345167 No Longer Active Mitch Urbina DO Active LOVENOX 100 MG/ML SC SOLN One injection twice a day 09/15/15 ENOXAPARIN SODIUM 97541636039 No Longer Active Carmine Navarrete ctive JANUVIA 50 MG TABS Take one by mouth daily DIEGO GLIPTIN PHOSPHATE 55547896486 Active Mitch Urbina DO Active JANUVIA 100 MG TABS 1/2 by mouth every day DIEGO GLIPTIN PHOSPHATE 94034419379 No Longer Active Bijal Segal RN Active METFORMIN HCL 500 MG TABS 2 by mouth twice daily METFORMIN HCL 36456168874 Active Mitch Urbina DO Active GLIMEPIRIDE 4 MG TABS 1 tab po bid GLIMEPIRIDE 265384 38867 Active Mitch Urbina DO Active COLCRYS 0.6 MG TABS 1 po q 6 hours prn gout pain 03/02 COLCHICINE 84512107176 No Longer Active Camila Reese Active LISINOPRIL 5 MG TABS 1 by mouth every day LISIN OPRIL 77140464172 No Longer Active Nguyen Perez Active KLOR-CON 20 MEQ PACK Take one by mouth daily 8 POTASSIUM CHLORIDE 72824251190 No Longer Active Nguyen Perez Active FUROSEMIDE 40 MG TABS 1 by mouth daily FUROSEMI DE 40635002076 No Longer Active Nguyen Perez Active PROVIGIL 200 MG TABS 1/2 tab po q day MODAFINIL 86951 006978 Active Kathie Juan RPT,RMA Active PROVIGIL 100 MG TABS Take one by mouth daily MO DAFINIL 99702735202 No Longer Active Mitch Urbina DO Active BACTRIM DS 800-160 MG TAB 1 tab by mouth twice daily 2 TRIMETHOPRIM-SULFAMETHOXAZOLE 09807401057 No Longer Active Renan Hays MD Active FAMOTIDINE 20 MG TABS by mouth twice a day FAMOTI DINE 19204881627 Active Mitch Urbina DO Active ADULT ASPIRIN LOW STRENGTH 81 MG TBDP 1 by mouth every daily ASPIRIN 22402614890 Active Mitch Urbina DO Active METOPROLOL TARTRATE 50 MG TABS 1 by mouth twice daily METOPROLOL TARTRATE 25714363081 Active Mitch Urbina DO Active BACTRIM DS 800-160 MG TAB 1 tab by mouth twice daily 2 BACTRIM DS 800-160 MG TAB 521853 TRIMETHOPRIM-SULFAMETHOXAZOLE Inac tive PROVIGIL 100 MG TABS Take one by mouth daily 4 PROVIGIL 100 MG TABS 621072 MODAFINIL Inactive FUROSEMIDE 40 MG TABS 1 by mouth daily FU ROSEMIDE 40 MG TABS 085844 FUROSEMIDE Inactive KLOR-CON 20 MEQ PACK Take one by mouth daily 8 KLOR-CON 20 MEQ PACK 749133 POTASSIUM CHLORIDE Inactive LISINOPRIL 5 MG TABS 1 by mouth every day LISINOPRIL 5 MG TABS 814493 LISINOPRIL Inactive COLCRYS 0.6 MG TABS 1 po q 6 hours prn gout pain 03/02 COLCRYS 0.6 MG TABS 418637 COLCHICINE Inactive JANUVIA 100 MG TABS 1/2 by mouth every day JANUVI A 100 MG TABS SITAGLIPTIN PHOSPHATE Inactive SIMVASTATIN 20 MG TABS 1 tab daily at bedtime SIMVASTATIN 20 MG TABS 088286 SIMVASTATIN Inactive COUMADIN 6 MG TABS 1 by mouth every other day COUMADIN 6 MG TABS 678749 WARFARIN SODIUM Inactive COUMADIN 5 MG TABS 1 by mouth every other day COUMADIN 5 MG TABS 748563 WARFARIN SODIUM Inactive LISINOPRIL 20 MG TABS 1 tab po at HS KOKI NOPRIL 20 MG TABS 568524 LISINOPRIL Inactive LISINOPRIL-HYDROCHLOROTHIAZIDE 20-12.5 MG TABS 1 tab by mouth da rocky LISINOPRIL-HYDROCHLOROTHIAZIDE 20-12.5 MG TABS 292725 LISINOPRIL-HYDROCHLOROTHIAZIDE Inactive POLYTRIM 86270-7.1 UNIT/ML-% SOLN 1 drop in affected e ye every 3 hours while awake x 7 days POLYTRIM 95559-5.1 UNIT/ML-% SOLN 01012 7 POLYMYXIN B-TRIMETHOPRIM Inactive COUMADIN 4 MG TABS 1 tablet daily COUMADIN 4 MG TABS 582577 WARFARIN SODIUM Inactive CLONIDINE HCL 0.1 MG TABS 1 po bid 7 days, then 1/2 tab po b id 7 days CLONIDINE HCL 0.1 MG TABS 984032 CLONIDINE HCL I nactive ALLOPURINOL 300 MG TABS Take 1 tablet by mouth daily 2 ALLOPURINOL 300 MG TABS 731097 ALLOPURINOL Inactive MECLIZINE HCL 25 MG TAB 1 po tid 3 days, then 1/2 tab tid 3 days MECLIZINE HCL 25 MG TAB 837092 MECLIZINE HCL Inactive AMLODIPINE BESYLATE 5 MG TABS 1 tablet by mouth daily AMLODIPINE BESYLATE 5 MG TABS 082661 AMLODIPINE BESYLATE Inactive LOVENOX 100 MG/ML SC SOLN One injection twice a day 09/15/15 LOVENOX 100 MG/ML SC SOLN 467905 ENOXAPARIN SODIUM Inactive Vital Signs Date Name [...] Range Description Chart Maintenance: hemoccult added to [facility] - Chemistry occult blood, stool (E&M) Positive Lab Report: HGBA1C - Chemistry hemoglobin A1C, blood, as % of total hemoglobin 6.6 % 4.3-6.0 Lab Report: Lipid Panel, HEPATIC PANEL, MICROALB/CREAT W/RATIO, HGBA1C, CBC - Chemistry cholesterol, serum 136 mg/dL 534-171 3518/08/09 triglyceride, serum, fasting 187 mg/dL 30-200 HDL [...] 1.0-3.5 Encounters Code Encounter Date Provider Facility CPT-92820 Level 3 Est. Patient 15:10:14 CDT Joe kamara [facility] CPT-93158 Level 3 Est. Patient 15:03:46 CDT oJe kamara [facility] CPT-99090 Level 3 Est. Patient 14:21:06 CDT Mitch luis [facility] CPT-05791 Level 3 Est. Patient 14:52:06 CDT Joe kamara [facility] CPT-00709 Level 3 Est. Patient 09:34:30 FURNITURE MOVER Mitch luis [facility] CPT-02786 Level 3 Est. Patient 09:37:15 CDT Mitch luis [facility] CPT-24000 Level 3 Est. Patient 17:01:00 FURNITURE MOVER Mitch luis [facility] CPT-77984 Level 3 Est. Patient 13:53:19 FURNITURE MOVER Mitch luis [facility] CPT-44798 Level 3 Est. Patient 19:19:37 FURNITURE MOVER Mitch luis [facility] CPT-02116 Level 3 Est. Patient 13:25:53 FURNITURE MOVER Tavo toure MD [facility] CPT-92886 Level 3 Est. Patient 18:17:28 CDT Mitch luis [facility] CPT-84833 Level 3 Est. Patient 15:22:57 CDT Mitch Arnol luis DO [facility] CPT-91178 Level 3 Est. Patient 18:21:50 CDT Mitch W L janelle [facility] CPT-62969 Level 3 Est. Patient 18:20:38 CDT Mitch Arnol luis [facility] CPT-71136 Level 3 Est. Patient 15:37:55 CDT Mitch Arnol luis [facility] CPT-34418 Level 2 Est. Patient 15:54:44 CDT Carmine benton MD [facility] CPT-13046 Level 3 Est. Patient 21:46:01 FURNITURE MOVER Mitch luis [facility] CPT-52891 Level 3 Est. Patient 22:15:50 CDT Mitch Arnol luis [facility] CPT-48198 Level 3 Est. Patient 10:48:15 CDT iMtch lius [facility] CPT-25692 Level 3 Est. Patient 23:20:57 CDT Tavo toure MD [facility] CPT-46539 Level 3 Est. Patient 16:26:13 CDT Mitch Castellano janelle [facility] Procedures Code Procedure Name Date Entry Date Standard Desc ription CPT-53701 PT/INR - LAB USE ONLY 13:32:49 FURNITURE MOVER CPT-29292 Venipuncture Draw Fee 13:32:49 FURNITURE MOVER CPT-20431 PT/INR - LAB USE ONLY 10:34:49 FURNITURE MOVER CPT-84652 Venipuncture Draw Fee 10:34:48 FURNITURE MOVER CPT-34679 PT/INR - LAB USE ONLY 09:22:03 FURNITURE MOVER CPT-36263 Venipuncture Draw Fee 09:22:02 FURNITURE MOVER CPT-24725 Hemoccult IFOBT - LAB USE ONLY 10:27:22 CDT CPT-83019 Venipuncture Draw Fee 08:27:08 CDT CPT-55593 Liver Profile - LAB USE ONLY 08:27:07 CDT 2 CPT-34771 Microalbumin - LAB USE ONLY 08:27:07 CDT 20 25/05/09 CPT-20464 PT/INR - LAB USE ONLY 08:27:07 CDT CPT-58936 HGBA1C - LAB USE ONLY 08:27:07 CDT CPT-55411 CBC - LAB USE ONLY 08:27:07 CDT CPT-64527 Venipuncture Draw Fee 11:09:14 CDT CPT-04854 Venipuncture Draw Fee 08:32:21 FURNITURE MOVER CPT-43576 Venipuncture Draw Fee 09:38:56 FURNITURE MOVER CPT-46118 No Charge Offi Visit 21:36:07 CDT 1 CPT-64492 Venipuncture Draw Fee 10:13:28 FURNITURE MOVER CPT-48516 Venipuncture Draw Fee 08:31:11 CDT CPT-01538 Aspir/Inject Med Joint 18:17:28 CDT CPT-74848 Venipuncture Draw Fee 10:13:30 CDT CPT-08426 Venipuncture Draw Fee 08:31:43 FURNITURE MOVER CPT-JTINJ Joint Injection 18:34:50 CDT CPT-23386 Knee 3V 12:25:09 CDT CPT-24253 Venipuncture Draw Fee 12:15:57 CDT CPT-060 Medical Surveillance Exam 21:31:43 CDT 2011 CPT-70616 Venipuncture Draw Fee 08:32:05 FURNITURE MOVER CPT-OV Office Visit 18:19:06 CDT
--- OUTSIDE RECORDS SUMMARY | 2020-01-18 12:06 | XMS REPORT | Clinical Summary ---
Author Author Admin, Mitch Leon Organization [facility] Address Unknown Phone Unavailable Allergies, [...] atherosclerosis of unspecified type of vessel, [place] or graft EDEMA 782.3 Active Mitch Urbina [...] 1 tablet by mouth daily AMLODIPINE BESYLATE 95141115030 Active Mitch Urbina DO Active MECLIZINE HCL 25 MG TAB 1 po tid 3 days, then 1/2 tab tid 3 days MECLIZINE HCL 00904695334 No Longer Active Corey SEGURA Active ALLOPURINOL 300 MG TABS Take 1 tablet by mouth daily 2 ALLOPURINOL 30677840383 No Longer Active Corey SEGURA Activ e CLONIDINE HCL 0.1 MG TABS 1 po bid 7 days, then 1/2 tab po b id 7 days CLONIDINE HCL 59338943300 No Longer Active Corey SEGURA Active COUMADIN 5 MG TABS 1 tab PO daily WARFARIN SODIUM 19932948812 Active Mitch Urbina DO Active COUMADIN 4 MG TABS 1 tablet daily WARFARIN SODI UM 43921284345 No Longer Active Corey SEGURA Active POLYTRIM 00932-7.1 UNIT/ML-% SOLN 1 drop in affected e ye every 3 hours while awake x 7 days POLYMYXIN B-TRIMETHOPRIM 12380356294 N o Longer Active Corey SEGURA Active LOSARTAN POTASSIUM-HCTZ 100-12.5 MG TABS 1 by mouth da rocky for high blood pressure LOSARTAN POTASSIUM-HCTZ 29861760306 Active Stephy Urbina DO Active LISINOPRIL-HYDROCHLOROTHIAZIDE 20-12.5 MG TABS 1 tab by mouth da rocky LISINOPRIL-HYDROCHLOROTHIAZIDE 65153916645 No Longer Active Mitch luis DO Active LISINOPRIL 20 MG TABS 1 tab po at HS LISINOPRIL 26092277153 No Longer Active Mitch Urbina DO Active COUMADIN 5 MG TABS 1 by mouth every other day WARFARIN SODIUM 20192748566 No Longer Active Mitch Urbina DO Active COUMADIN 6 MG TABS 1 by mouth every other day WARFARIN SODIUM 62785867288 No Longer Active Mitch Urbina DO Active COLCRYS 0.6 MG TABS 1 tab qid prn gout COLCHICINE 07617812592 Active Corey SEGURA Active SIMVASTATIN 40 MG TABS 1 tab daily at bedtime S IMVASTATIN 09167251632 Active Mitch Urbina DO Active SIMVASTATIN 20 MG TABS 1 tab daily at bedtime S IMVASTATIN 98861359054 No Longer Active Mitch Urbina DO Active LOVENOX 100 MG/ML SC SOLN One injection twice a day 09/15/15 ENOXAPARIN SODIUM 65441700287 No Longer Active Carmine Yusuf MD A ctive JANUVIA 50 MG TABS Take one by mouth daily DIEGO GLIPTIN PHOSPHATE 73612761455 Active Domi Rivera MA Active JANUVIA 100 MG TABS 1/2 by mouth every day DIEGO GLIPTIN PHOSPHATE 72074552979 No Longer Active Bijal Segal RN Active METFORMIN HCL 500 MG TABS 2 by mouth twice daily METFORMIN HCL 05252339849 Active Mitch Urbina DO Active GLIMEPIRIDE 4 MG TABS 1 tab po bid GLIMEPIRIDE 893672 41711 Active Mitch Urbina DO Active COLCRYS 0.6 MG TABS 1 po q 6 hours prn gout pain 03/02 COLCHICINE 04663897521 No Longer Active Camila Reese Active LISINOPRIL 5 MG TABS 1 by mouth every day LISIN OPRIL 90698921231 No Longer Active Nguyenmolly Perez Active KLOR-CON 20 MEQ PACK Take one by mouth daily 8 POTASSIUM CHLORIDE 68566677387 No Longer Active Nguyenmolly Perez Active FUROSEMIDE 40 MG TABS 1 by mouth daily FUROSEMI DE 88128282833 No Longer Active Nguyenmolly Perez Active PROVIGIL 200 MG TABS 1/2 tab po q day MODAFINIL 13960 664091 Active Mitch Urbina DO Active PROVIGIL 100 MG TABS Take one by mouth daily MO DAFINIL 17603585153 No Longer Active Mitch Urbina DO Active BACTRIM DS 800-160 MG TAB 1 tab by mouth twice daily 2 TRIMETHOPRIM-SULFAMETHOXAZOLE 80562329749 No Longer Active Renan Hays MD Active FAMOTIDINE 20 MG TABS by mouth twice a day FAMOTI DINE 50195211730 Active Mitch Urbina DO Active ADULT ASPIRIN LOW STRENGTH 81 MG TBDP 1 by mouth every daily ASPIRIN 68707304181 Active Mitch W [place] DO Active METOPROLOL TARTRATE 50 MG TABS 1 by mouth twice daily METOPROLOL TARTRATE 79432737361 Active Curly Coker MD Active BACTRIM DS 800-160 MG TAB 1 tab by mouth twice daily 2 BACTRIM DS 800-160 MG TAB TRIMETHOPRIM-SULFAMETHOXAZOLE Inac tive PROVIGIL 100 MG TABS Take one by mouth daily 4 PROVIGIL 100 MG TABS 436463 MODAFINIL Inactive FUROSEMIDE 40 MG TABS 1 by mouth daily FU ROSEMIDE 40 MG TABS 137451 FUROSEMIDE Inactive KLOR-CON 20 MEQ PACK Take one by mouth daily 8 KLOR-CON 20 MEQ PACK 623293 POTASSIUM CHLORIDE Inactive LISINOPRIL 5 MG TABS 1 by mouth every day LISINOPRIL 5 MG TABS 633610 LISINOPRIL Inactive COLCRYS 0.6 MG TABS 1 po q 6 hours prn gout pain 03/02 COLCRYS 0.6 MG TABS 737641 COLCHICINE Inactive JANUVIA 100 MG TABS 1/2 by mouth every day JANUVI A 100 MG TABS SITAGLIPTIN PHOSPHATE Inactive SIMVASTATIN 20 MG TABS 1 tab daily at bedtime SIMVASTATIN 20 MG TABS 540553 SIMVASTATIN Inactive COUMADIN 6 MG TABS 1 by mouth every other day COUMADIN 6 MG TABS 547331 WARFARIN SODIUM Inactive COUMADIN 5 MG TABS 1 by mouth every other day COUMADIN 5 MG TABS 881905 WARFARIN SODIUM Inactive LISINOPRIL 20 MG TABS 1 tab po at HS KOKI NOPRIL 20 MG TABS 021336 LISINOPRIL Inactive LISINOPRIL-HYDROCHLOROTHIAZIDE 20-12.5 MG TABS 1 tab by mouth da rocky LISINOPRIL-HYDROCHLOROTHIAZIDE 20-12.5 MG TABS 458275 LISINOPRIL-HYDROCHLOROTHIAZIDE Inactive POLYTRIM 95051-4.1 UNIT/ML-% SOLN 1 drop in affected e ye every 3 hours while awake x 7 days POLYTRIM 12794-4.1 UNIT/ML-% SOLN 51490 7 POLYMYXIN B-TRIMETHOPRIM Inactive COUMADIN 4 MG TABS 1 tablet daily COUMADIN 4 MG TABS 876018 WARFARIN SODIUM Inactive CLONIDINE HCL 0.1 MG TABS 1 po bid 7 days, then 1/2 tab po b id 7 days CLONIDINE HCL 0.1 MG TABS 217302 CLONIDINE HCL I nactive ALLOPURINOL 300 MG TABS Take 1 tablet by mouth daily 2 ALLOPURINOL 300 MG TABS 243885 ALLOPURINOL Inactive MECLIZINE HCL 25 MG TAB 1 po tid 3 days, then 1/2 tab tid 3 days MECLIZINE HCL 25 MG TAB 834230 MECLIZINE HCL Inactive LOVENOX 100 MG/ML SC SOLN One injection twice a day 09/15/15 LOVENOX 100 MG/ML SC SOLN 482862 ENOXAPARIN SODIUM Inactive Vital Signs Date Name [...] Ag - Chemistry sodium, serum 141 mmol/L 065-685 8884/07/06 potassium, serum 4.4 mmol/L 3.5-5.2 chloride, serum [...] Panel - Chemistry sodium, serum 137 mmol/L 501-856 1074/11/14 potassium, serum 4.4 mmol/L 3.5-5.2 chloride, serum [...] 8.0 % 4.3-6.0 cholesterol, serum 130 mg/dL 629-732 5315/11/14 triglyceride, serum, fasting 288 mg/dL 30-200 HDL cholesterol, serum 33 mg/dL 32-96 LDL cholesterol, serum 39 mg/dL 0-130 Lab Report: Comp. Metabolic Panel, HGBA1 C, Lipid Panel, Prothrombin Time - Chemistry sodium, serum 136 mmol/L 892-548 2218/12/02 potassium, serum 4.4 mmol/L 3.5-5.2 chloride, serum 101 mmol/L 98-107 carbon dioxide, venous blood 29.0 mmol/L 21.0-32 .0 blood glucose 149 mg/dL 65-110 urea nitrogen, blood 29 mg/dL 7-18 creatinine, serum 1.20 mg/dL 0.60-1.30 alanine aminotransferase (SGPT), serum 46 U/L -78 aspartate aminotransferase (SGOT), serum 34 U/L 15-37 calcium, serum 10.3 mg/dL 8.5-10.1 bilirubin, serum, total 0.60 mg/dL 0.00-1.00 hemoglobin A1C, blood, as % of total hemoglobin 7.6 % 4.3-6.0 cholesterol, serum 117 mg/dL 737-477 0153/12/02 triglyceride, serum, fasting 226 mg/dL 30-200 HDL [...] 7.0 % 4.3-6.0 cholesterol, serum 120 mg/dL 276-440 5157/07/06 triglyceride, serum, fasting 186 mg/dL 30-200 HDL [...] 1.0-3.5 Encounters Code Encounter Date Provider Facility CPT-89650 Level 3 Est. Patient 09:37:15 CDT Mitch luis [facility]-23836 Level 3 Est. Patient 17:01:00 DOUGHNUT MAKER Mitch luis [facility] CPT-65170 Level 3 Est. Patient 13:53:19 DOUGHNUT MAKER Mitch luis [facility] CPT-51111 Level 3 Est. Patient 19:19:37 DOUGHNUT MAKER Mitch luis [facility] CPT-88089 Level 3 Est. Patient 13:25:53 DOUGHNUT MAKER Tavo toure MD [facility]-82289 Level 3 Est. Patient 18:17:28 CDT Mitch Arnol L janelle [facility]-46323 Level 3 Est. Patient 15:22:57 CDT Mitch Arnol L janelle [facility]-65010 Level 3 Est. Patient 18:21:50 CDT Mitch W L janelle [facility]-98034 Level 3 Est. Patient 18:20:38 CDT Mitch W L janelle [facility]-30291 Level 3 Est. Patient 15:37:55 CDT Micth W L janelle [facility] CPT-64309 Level 2 Est. Patient 15:54:44 CDT Carmine benton MD [facility]-43724 Level 3 Est. Patient 21:46:01 DOUGHNUT MAKER Mitch W L janelle [facility] CPT-87526 Level 3 Est. Patient 22:15:50 CDT Mitch W L ee [facility]-65234 Level 3 Est. Patient 10:48:15 CDT Mitch W L ee [facility] CPT-35677 Level 3 Est. Patient 23:20:57 CDT Tavo toure MD [facility] CPT-15482 Level 3 Est. Patient 16:26:13 CDT Mitch luis DO [facility] Procedures Code Procedure Name Date Entry Date Standard Desc ription CPT-51292 No Charge Offi Visit 21:36:07 CDT 1 CPT-58433 Venipuncture Draw Fee 10:13:28 DOUGHNUT MAKER CPT-39125 Venipuncture Draw Fee 08:31:11 CDT CPT-98061 Aspir/Inject Med Joint 18:17:28 CDT CPT-95225 Venipuncture Draw Fee 10:13:30 CDT CPT-96597 Venipuncture Draw Fee 08:31:43 DOUGHNUT MAKER CPT-JTINJ Joint Injection 18:34:50 CDT CPT-95619 Knee 3V 12:25:09 CDT CPT-95370 Venipuncture Draw Fee 12:15:57 CDT CPT-060 Medical Surveillance Exam 21:31:43 CDT 2011 CPT-41186 Venipuncture Draw Fee 08:32:05 DOUGHNUT MAKER CPT-OV Office Visit 18:19:06 CDT
--- OUTSIDE RECORDS SUMMARY | 2020-01-18 12:06 | XMS REPORT | Clinical Summary ---
Author Author Admin, Mitch Leon Organization [facility] Address Unknown Phone Unavailable Allergies, Adverse Reactions, [...] Coronary atherosclerosis of unspecified type of vessel, [place] or graft EDEMA 782.3 Resolved Mitch Urbina [...] for 1 week, then once daily FLUTICASONE GA OPIONATE 59836618716 Active Becky Sell CASE RESOURCE MANAGER Active PREDNISONE 20 MG ORAL TABLET 2 tabs daily for 3 days 1 tab d aily for 3 days PREDNISONE 50969320502 No Longer Active Becky Sell CASE RESOURCE MANAGER Active MINOXIDIL 2.5 MG ORAL TABLET 1 tablet twice daily for high b lood pressure MINOXIDIL 76529088477 Active Mitch Urbina DO Ac tive METFORMIN HCL ER 500 MG ORAL TABLET EXTENDED RELEASE 2 4 HOUR 2 tablets by mouth twice daily METFORMIN HCL 11326563127 Active Mitch Urbina DO Active GLIMEPIRIDE 4 MG ORAL TABLET 1 tablet by mouth twice daily f or diabetes GLIMEPIRIDE 84876484285 Active Mitch Urbina DO Active GLIMEPIRIDE 2 MG ORAL TABLET 1 po BID GLIMEPI RIDE 25709424332 No Longer Active Mitch Urbina DO Active AMLODIPINE BESYLATE 5 MG ORAL TABLET 1 tablet by mouth daily AMLODIPINE BESYLATE 23717809322 Active Mitch Urbina DO Active PROVIGIL 200 MG ORAL TABLET 1/2 tab po q day MODA FINIL 89033714968 Active Renee Oconnor LPN Active FAMOTIDINE 20 MG ORAL TABLET by mouth twice a day 2017 FAMOTIDINE 91761340597 No Longer Active Mitch Urbina DO Active COLCRYS 0.6 MG ORAL TABLET 1 tab qid prn gout C OLCHICINE 49703368982 No Longer Active Mitch Urbina DO Active KEFLEX 500 MG ORAL CAPSULE 1 po qid CEPHALEXI N 23750203082 No Longer Active Mitch Urbina DO Active LOSARTAN POTASSIUM 100 MG ORAL TABLET 1 pill by mouth daily, for blood pressure LOSARTAN POTASSIUM 10855170339 Active Ana Ocampo Active AMLODIPINE BESYLATE 5 MG ORAL TABLET 1 tablet by mouth daily 201 01/20/04 AMLODIPINE BESYLATE 00031159507 No Longer Active Joe fulton APRN Active MITIGARE 0.6 MG ORAL CAPSULE 2 capsules at onset of go ut pain, then take one capsule at 1 hour if symptoms persist. COLCHICINE 59 462503249 Active Mtich Urbina DO Active COUMADIN 1 MG ORAL TABLET 2 tabs orally daily with the 5mg tab to equal 7mg daily WARFARIN SODIUM 97946275900 Active Maria Briones Active INVOKANA 100 MG ORAL TABLET 1 tablet orally daily CANAGLIFLOZIN 39739248714 Active Mitch Urbina DO Active MECLIZINE HCL 25 MG ORAL TABLET 1 po tid 3 days, then 1/2 ta b tid 3 days MECLIZINE HCL 31282922865 No Longer Active Corey SEGURA Active ALLOPURINOL 300 MG ORAL TABLET Take 1 tablet by mouth daily 2012 ALLOPURINOL 49100797712 No Longer Active Corey SEGURA Active CLONIDINE HCL 0.1 MG ORAL TABLET 1 po bid 7 days, then 1/2 t ab po bid 7 days CLONIDINE HCL 64214838072 No Longer Active Corey SEGURA Active COUMADIN 5 MG ORAL TABLET 1 tab PO daily WARFAR IN SODIUM 42687567576 Active Renee Oconnor LPN Active COUMADIN 4 MG ORAL TABLET 1 tablet daily WARFAR IN SODIUM 18479297115 No Longer Active Corey SEGURA Active POLYTRIM 60063-3.1 UNIT/ML-% OPHTHALMIC SOLUTION 1 rui p in affected eye every 3 hours while awake x 7 days POLYMYXIN B-TRIMETHOP RIM 31377787108 No Longer Active Corey SEGURA Active LOSARTAN POTASSIUM-HCTZ 100-12.5 MG ORAL TABLET 1 by m outh daily for high blood pressure LOSARTAN POTASSIUM-HCTZ 42000598897 No Longer A ctive Mitch Urbina DO Active LISINOPRIL-HYDROCHLOROTHIAZIDE 20-12.5 MG ORAL TABLET 1 tab by m outh daily LISINOPRIL-HYDROCHLOROTHIAZIDE 08561145264 No Longer Active Mitch Urbina DO Active LISINOPRIL 20 MG ORAL TABLET 1 tab po at HS LIS INOPRIL 20600011062 No Longer Active Mitch Urbina DO Active COUMADIN 5 MG ORAL TABLET 1 by mouth every other day 2 WARFARIN SODIUM 53179789134 No Longer Active Mitch Urbina DO Active COUMADIN 6 MG ORAL TABLET 1 by mouth every other day 2 WARFARIN SODIUM 07144195889 No Longer Active Mitch Urbina DO Active SIMVASTATIN 40 MG ORAL TABLET 1 tab daily at bedtime SIMVASTATIN 24822861371 Active Maria Rivas RN Active SIMVASTATIN 20 MG ORAL TABLET 1 tab daily at bedtime 2 SIMVASTATIN 64463562084 No Longer Active Mitch Urbina DO Active LOVENOX 100 MG/ML SUBCUTANEOUS SOLUTION One injection twice a da y ENOXAPARIN SODIUM 60909504315 No Longer Active Carmine Yusuf MD Active JANUVIA 50 MG ORAL TABLET Take one by mouth daily SITAGLIPTIN PHOSPHATE 53476392733 Active Renee Oconnor LPN Active JANUVIA 100 MG ORAL TABLET 1/2 by mouth every day 2011 SITAGLIPTIN PHOSPHATE 47355897171 No Longer Active Bijal Segal RN Acti ve METFORMIN HCL 500 MG ORAL TABLET 2 by mouth twice daily METFORMIN HCL 23448042333 No Longer Active Renee Oconnor LPN Active COLCRYS 0.6 MG ORAL TABLET 1 po q 6 hours prn gout pain COLCHICINE 39498304600 No Longer Active Camila Reese Active LISINOPRIL 5 MG ORAL TABLET 1 by mouth every day 11/17 LISINOPRIL 88482531514 No Longer Active Nguyen Ana Active KLOR-CON 20 MEQ ORAL PACKET Take one by mouth daily 09/10/08 POTASSIUM CHLORIDE 28402988705 No Longer Active Nguyen Ana Active FUROSEMIDE 40 MG ORAL TABLET 1 by mouth daily F UROSEMIDE 48231995147 No Longer Active Nguyen Ana Active PROVIGIL 100 MG ORAL TABLET Take one by mouth daily 08/20/04 MODAFINIL 24351513263 No Longer Active Mitch Urbina DO Active BACTRIM DS 800-160 MG ORAL TABLET 1 tab by mouth twice daily 201 10/19/09 TRIMETHOPRIM-SULFAMETHOXAZOLE 15731260404 No Longer Active Elian Hays MD Active ADULT ASPIRIN LOW STRENGTH 81 MG ORAL TABLET DISINTEGR ATING 1 by mouth every daily ASPIRIN 11373872450 Active Mitch Urbina DO Ac tive METOPROLOL TARTRATE 50 MG ORAL TABLET 1 by mouth twice daily METOPROLOL TARTRATE 65216505029 Active Maria Rivas RN Ac tive BACTRIM DS 800-160 MG ORAL TABLET 1 tab by mouth twice daily 201 10/19/09 BACTRIM DS 800-160 MG ORAL TABLET 928233 TRIMETHOPRIM-SULFAMETHOXAZOLE Inactive PROVIGIL 100 MG ORAL TABLET Take one by mouth daily 08/20/04 PROVIGIL 100 MG ORAL TABLET 763737 MODAFINIL Inactive FUROSEMIDE 40 MG ORAL TABLET 1 by mouth daily FUROSEMIDE 40 MG ORAL TABLET 719489 FUROSEMIDE Inactive KLOR-CON 20 MEQ ORAL PACKET Take one by mouth daily 09/10/08 KLOR- CON 20 MEQ ORAL PACKET 8363761 POTASSIUM CHLORIDE Inactive LISINOPRIL 5 MG ORAL TABLET 1 by mouth every day 11/17 LISINOPRIL 5 MG ORAL TABLET 735339 LISINOPRIL Inactive COLCRYS 0.6 MG ORAL TABLET 1 po q 6 hours prn gout pain COLCRYS 0.6 MG ORAL TABLET 886298 COLCHICINE Inactive JANUVIA 100 MG ORAL TABLET 1/2 by mouth every day 2011 JANUVIA 100 MG ORAL TABLET SITAGLIPTIN PHOSPHATE Inactive SIMVASTATIN 20 MG ORAL TABLET 1 tab daily at bedtime 2 SIMVASTATIN 20 MG ORAL TABLET 282250 SIMVASTATIN Inactive COUMADIN 6 MG ORAL TABLET 1 by mouth every other day 2 COUMADIN 6 MG ORAL TABLET 060308 WARFARIN SODIUM Inactive COUMADIN 5 MG ORAL TABLET 1 by mouth every other day 2 COUMADIN 5 MG ORAL TABLET 325257 WARFARIN SODIUM Inactive LISINOPRIL 20 MG ORAL TABLET 1 tab po at HS LISINOPRIL 20 MG ORAL TABLET 488476 LISINOPRIL Inactive LISINOPRIL-HYDROCHLOROTHIAZIDE 20-12.5 MG ORAL TABLET 1 tab by m outh daily LISINOPRIL-HYDROCHLOROTHIAZIDE 20-12.5 MG ORAL TABLET 998340 LISINOPRIL-HYDROCHLOROTHIAZIDE Inactive POLYTRIM 31498-5.1 UNIT/ML-% OPHTHALMIC SOLUTION 1 rui p in affected eye every 3 hours while awake x 7 days POLYTRIM 1000 0-0.1 UNIT/ML-% OPHTHALMIC SOLUTION 348737 POLYMYXIN B-TRIMETHOPRIM Inactive COUMADIN 4 MG ORAL TABLET 1 tablet daily COUMADIN 4 MG ORAL TABLET 208148 WARFARIN SODIUM Inactive CLONIDINE HCL 0.1 MG ORAL TABLET 1 po bid 7 days, then 1/2 t ab po bid 7 days CLONIDINE HCL 0.1 MG ORAL TABLET 421414 CLONIDIN E HCL Inactive ALLOPURINOL 300 MG ORAL TABLET Take 1 tablet by mouth daily 2012 ALLOPURINOL 300 MG ORAL TABLET 920995 ALLOPURINOL I nactive MECLIZINE HCL 25 MG ORAL TABLET 1 po tid 3 days, then 1/2 ta b tid 3 days MECLIZINE HCL 25 MG ORAL TABLET 380566 MECLIZINE HCL Inactive AMLODIPINE BESYLATE 5 MG ORAL TABLET 1 tablet by mouth daily 201 01/20/04 AMLODIPINE BESYLATE 5 MG ORAL TABLET 267651 AMLODIPINE BESYLATE Inactive KEFLEX 500 MG ORAL CAPSULE 1 po qid K EFLEX 500 MG ORAL CAPSULE 132743 CEPHALEXIN Inactive COLCRYS 0.6 MG ORAL TABLET 1 tab qid prn gout COLCRYS 0.6 MG ORAL TABLET 671810 COLCHICINE Inactive FAMOTIDINE 20 MG ORAL TABLET by mouth twice a day 2017 FAMOTIDINE 20 MG ORAL TABLET 096549 FAMOTIDINE Inactive GLIMEPIRIDE 2 MG ORAL TABLET 1 po BID GLIMEPIRIDE 2 MG ORAL TABLET 374726 GLIMEPIRIDE Inactive LOVENOX 100 MG/ML SUBCUTANEOUS SOLUTION One injection twice a da y LOVENOX 100 MG/ML SUBCUTANEOUS SOLUTION 577870 ENOXAPAR IN SODIUM Inactive PREDNISONE 20 MG ORAL TABLET 2 tabs daily for 3 days 1 tab d aily for 3 days PREDNISONE 20 MG ORAL TABLET 731604 PREDNISONE Inactive Advance Directives Directive Description Start [...] Description Lab Report: CBC, MICROALB/CREAT W/RATIO - Hematology [...] mg/dL Encounters Code Encounter Date Provider Facility CPT-39140 Level 3 Est. Patient 15:18:36 CDT Becky Se anderson [facility] CPT-72032 95732-Pvs Vst-Est Level IV 10:06:35 CDT Stephy Ambrose [facility] CPT-51359 37620-Rsm Vst-Est Level IV 10:52:00 CONNECTION WORKER Stephy Ambrose [facility] CPT-72349 Level 3 Est. Patient 18:25:53 CDT Mitch luis [facility] CPT-56589 Level 3 Est. Patient 19:43:34 CDT Mitch luis [facility] CPT-30485 Level 4 Est. Patient 09:30:18 CDT Mitch luis [facility] CPT-52500 Level 3 Est. Patient 15:10:14 CDT Joe kamara [facility] CPT-05969 Level 3 Est. Patient 15:03:46 CDT Joe kamara [facility] CPT-62283 Level 3 Est. Patient 14:21:06 CDT Mitch luis [facility] CPT-20619 Level 3 Est. Patient 14:52:06 CDT Joe kamara [facility] CPT-78067 Level 3 Est. Patient 09:34:30 CONNECTION WORKER Mitch luis [facility] CPT-45414 Level 3 Est. Patient 09:37:15 CDT Mitch luis [facility] CPT-08271 Level 3 Est. Patient 17:01:00 CONNECTION WORKER Mitch luis [facility] CPT-42074 Level 3 Est. Patient 13:53:19 CONNECTION WORKER Mitch luis [facility] CPT-47941 Level 3 Est. Patient 19:19:37 CONNECTION WORKER Mitch luis [facility] CPT-05370 Level 3 Est. Patient 13:25:53 CONNECTION WORKER Tavo toure MD [facility] CPT-54932 Level 3 Est. Patient 18:17:28 CDT Mitch luis [facility] CPT-00109 Level 3 Est. Patient 15:22:57 CDT Mitch luis [facility] CPT-16778 Level 3 Est. Patient 18:21:50 CDT Mitch luis [facility] CPT-14957 Level 3 Est. Patient 18:20:38 CDT Mitch luis [facility] CPT-65133 Level 3 Est. Patient 15:37:55 CDT Mitch luis [facility] CPT-12902 Level 2 Est. Patient 15:54:44 CDT Carmine benton MD [facility] CPT-48430 Level 3 Est. Patient 21:46:01 CONNECTION WORKER Mitch luis [facility] CPT-35529 Level 3 Est. Patient 22:15:50 CDT Mitch Arnol luis [facility] CPT-52704 Level 3 Est. Patient 10:48:15 CDT Mitch Aronl luis [facility] CPT-42436 Level 3 Est. Patient 23:20:57 CDT Tavo toure MD [facility] CPT-35757 Level 3 Est. Patient 16:26:13 CDT Mitch luis [facility] Procedures Code Procedure Name Date Entry Date Standard Desc ription CPT-JTINJ Asp/Joint Injection 18:47:02 CDT CPT-15769 Venipuncture Draw Fee 09:26:17 CDT CPT-62242 PT/INR - LAB USE ONLY 13:32:49 CONNECTION WORKER CPT-52464 Venipuncture Draw Fee 13:32:49 CONNECTION WORKER CPT-18886 PT/INR - LAB USE ONLY 10:34:49 CONNECTION WORKER CPT-08202 Venipuncture Draw Fee 10:34:48 CONNECTION WORKER CPT-54618 PT/INR - LAB USE ONLY 09:22:03 CONNECTION WORKER CPT-49440 Venipuncture Draw Fee 09:22:02 CONNECTION WORKER CPT-89570 Hemoccult IFOBT - LAB USE ONLY 10:27:22 CDT CPT-84809 Venipuncture Draw Fee 08:27:08 CDT CPT-99341 Liver Profile - LAB USE ONLY 08:27:07 CDT 2 CPT-92247 Microalbumin - LAB USE ONLY 08:27:07 CDT 20 25/05/09 CPT-17813 PT/INR - LAB USE ONLY 08:27:07 CDT CPT-12225 HGBA1C - LAB USE ONLY 08:27:07 CDT CPT-87343 CBC - LAB USE ONLY 08:27:07 CDT CPT-36743 Venipuncture Draw Fee 11:09:14 CDT CPT-39648 Venipuncture Draw Fee 08:32:21 CONNECTION WORKER CPT-13530 Venipuncture Draw Fee 09:38:56 CONNECTION WORKER CPT-48910 No Charge Offi Visit 21:36:07 CDT 1 CPT-57077 Venipuncture Draw Fee 10:13:28 CONNECTION WORKER CPT-07515 Venipuncture Draw Fee 08:31:11 CDT CPT-18109 Aspir/Inject Med Joint 18:17:28 CDT CPT-96933 Venipuncture Draw Fee 10:13:30 CDT CPT-08006 Venipuncture Draw Fee 08:31:43 CONNECTION WORKER CPT-JTINJ Joint Injection 18:34:50 CDT CPT-48941 Knee 3V 12:25:09 CDT CPT-24718 Venipuncture Draw Fee 12:15:57 CDT CPT-060 Medical Surveillance Exam 21:31:43 CDT 2011 CPT-98407 Venipuncture Draw Fee 08:32:05 CONNECTION WORKER CPT-OV Office Visit 18:19:06 CDT
--- OUTSIDE RECORDS SUMMARY | 2020-01-18 12:06 | XMS REPORT | Clinical Summary ---
Author Author Admin, Mitch Leon Organization [facility] Address Unknown Phone Unavailable Allergies, [...] vessel, united [place]uburn or graft EDEMA 782.3 Active Mitch Urbina [...] Olecranon bursitis UNSPECIFIED ANEMIA 285.9 Active Blessing eLon MA Anemia, unspecified Malaise and fatigue 780.79 [...] 1 tablet by mouth daily AMLODIPINE BESYLATE 38191657277 Active Mitch Urbina DO Active MECLIZINE HCL 25 MG TAB 1 po tid 3 days, then 1/2 tab tid 3 days MECLIZINE HCL 71971045080 No Longer Active Corey SEGURA Active ALLOPURINOL 300 MG TABS Take 1 tablet by mouth daily 2 ALLOPURINOL 79605035039 No Longer Active Corey SEGURA Activ e CLONIDINE HCL 0.1 MG TABS 1 po bid 7 days, then 1/2 tab po b id 7 days CLONIDINE HCL 89479112477 No Longer Active Corey SEGURA Active COUMADIN 5 MG TABS 1 tab PO daily WARFARIN SODIUM 57082569699 Active Mitch Urbina DO Active COUMADIN 4 MG TABS 1 tablet daily WARFARIN SODI UM 49644400632 No Longer Active Corey SEGURA Active POLYTRIM 58087-9.1 UNIT/ML-% SOLN 1 drop in affected e ye every 3 hours while awake x 7 days POLYMYXIN B-TRIMETHOPRIM 02787882413 N o Longer Active Corey SEGURA Active LOSARTAN POTASSIUM-HCTZ 100-12.5 MG TABS 1 by mouth da rocky for high blood pressure LOSARTAN POTASSIUM-HCTZ 99987645030 Active Stephy Urbina DO Active LISINOPRIL-HYDROCHLOROTHIAZIDE 20-12.5 MG TABS 1 tab by mouth da rocky LISINOPRIL-HYDROCHLOROTHIAZIDE 97708422054 No Longer Active Mitch luis DO Active LISINOPRIL 20 MG TABS 1 tab po at HS LISINOPRIL 48436184821 No Longer Active Mitch Urbina DO Active COUMADIN 5 MG TABS 1 by mouth every other day WARFARIN SODIUM 17564121975 No Longer Active Mitch Urbina DO Active COUMADIN 6 MG TABS 1 by mouth every other day WARFARIN SODIUM 43698679589 No Longer Active Mitch Urbina DO Active COLCRYS 0.6 MG TABS 1 tab qid prn gout COLCHICINE 27654468920 Active Corey SEGURA Active SIMVASTATIN 40 MG TABS 1 tab daily at bedtime S IMVASTATIN 87579116188 Active Mitch Urbina DO Active SIMVASTATIN 20 MG TABS 1 tab daily at bedtime S IMVASTATIN 60065876003 No Longer Active Mitch Urbina DO Active LOVENOX 100 MG/ML SC SOLN One injection twice a day 09/15/15 ENOXAPARIN SODIUM 00986756848 No Longer Active Carmine D Otsego MD A ctive JANUVIA 50 MG TABS Take one by mouth daily DIEGO GLIPTIN PHOSPHATE 71772884013 Active Corey Arias PA Active JANUVIA 100 MG TABS 1/2 by mouth every day DIEGO GLIPTIN PHOSPHATE 56627760510 No Longer Active Bijalseth Segal RN Active METFORMIN HCL 500 MG TABS 2 by mouth twice daily METFORMIN HCL 58230110114 Active Mitch Urbina DO Active GLIMEPIRIDE 4 MG TABS 1 tab po bid GLIMEPIRIDE 086354 21923 Active Mitch Urbina DO Active COLCRYS 0.6 MG TABS 1 po q 6 hours prn gout pain 03/02 COLCHICINE 06991745722 No Longer Active Camila Reese Active LISINOPRIL 5 MG TABS 1 by mouth every day LISIN OPRIL 83803167494 No Longer Active Nguyenmolly Perez Active KLOR-CON 20 MEQ PACK Take one by mouth daily 8 POTASSIUM CHLORIDE 89264945660 No Longer Active Nguyen Perez Active FUROSEMIDE 40 MG TABS 1 by mouth daily FUROSEMI DE 12678795829 No Longer Active Nguyen Perez Active PROVIGIL 200 MG TABS 1/2 tab po q day MODAFINIL 62375 711525 Active Mitch Urbina DO Active PROVIGIL 100 MG TABS Take one by mouth daily MO DAFINIL 46333114137 No Longer Active Mitch Urbina DO Active BACTRIM DS 800-160 MG TAB 1 tab by mouth twice daily TRIMETHOPRIM-SULFAMETHOXAZOLE 70051162477 No Longer Active Renan Hays MD Active FAMOTIDINE 20 MG TABS by mouth twice a day FAMOTI DINE 67990107304 Active Mitch Urbina DO Active ADULT ASPIRIN LOW STRENGTH 81 MG TBDP 1 by mouth every daily ASPIRIN 14366537720 Active Mitch Urbina DO Active METOPROLOL TARTRATE 50 MG TABS 1 by mouth twice daily METOPROLOL TARTRATE 81831299708 Active Mitch W Carl[place] DO Active BACTRIM DS 800-160 MG TAB 1 tab by mouth twice daily 2 BACTRIM DS 800-160 MG TAB TRIMETHOPRIM-SULFAMETHOXAZOLE Inac tive PROVIGIL 100 MG TABS Take one by mouth daily 4 PROVIGIL 100 MG TABS 991081 MODAFINIL Inactive FUROSEMIDE 40 MG TABS 1 by mouth daily FU ROSEMIDE 40 MG TABS 639031 FUROSEMIDE Inactive KLOR-CON 20 MEQ PACK Take one by mouth daily 8 KLOR-CON 20 MEQ PACK 411560 POTASSIUM CHLORIDE Inactive LISINOPRIL 5 MG TABS 1 by mouth every day LISINOPRIL 5 MG TABS 267834 LISINOPRIL Inactive COLCRYS 0.6 MG TABS 1 po q 6 hours prn gout pain 03/02 COLCRYS 0.6 MG TABS COLCHICINE Inactive JANUVIA 100 MG TABS 1/2 by mouth every day JANUVI A 100 MG TABS SITAGLIPTIN PHOSPHATE Inactive SIMVASTATIN 20 MG TABS 1 tab daily at bedtime SIMVASTATIN 20 MG TABS 213513 SIMVASTATIN Inactive COUMADIN 6 MG TABS 1 by mouth every other day COUMADIN 6 MG TABS 927152 WARFARIN SODIUM Inactive COUMADIN 5 MG TABS 1 by mouth every other day COUMADIN 5 MG TABS 609888 WARFARIN SODIUM Inactive LISINOPRIL 20 MG TABS 1 tab po at HS KOKI NOPRIL 20 MG TABS 096642 LISINOPRIL Inactive LISINOPRIL-HYDROCHLOROTHIAZIDE 20-12.5 MG TABS 1 tab by mouth da rocky LISINOPRIL-HYDROCHLOROTHIAZIDE 20-12.5 MG TABS 080376 LISINOPRIL-HYDROCHLOROTHIAZIDE Inactive POLYTRIM 70987-9.1 UNIT/ML-% SOLN 1 drop in affected e ye every 3 hours while awake x 7 days POLYTRIM 44541-5.1 UNIT/ML-% SOLN 94063 7 POLYMYXIN B-TRIMETHOPRIM Inactive COUMADIN 4 MG TABS 1 tablet daily COUMADIN 4 MG TABS 787443 WARFARIN SODIUM Inactive CLONIDINE HCL 0.1 MG TABS 1 po bid 7 days, then 1/2 tab po b id 7 days CLONIDINE HCL 0.1 MG TABS 011552 CLONIDINE HCL I nactive ALLOPURINOL 300 MG TABS Take 1 tablet by mouth daily 2 ALLOPURINOL 300 MG TABS 113255 ALLOPURINOL Inactive MECLIZINE HCL 25 MG TAB 1 po tid 3 days, then 1/2 tab tid 3 days MECLIZINE HCL 25 MG TAB 112686 MECLIZINE HCL Inactive LOVENOX 100 MG/ML SC SOLN One injection twice a day 09/15/15 LOVENOX 100 MG/ML SC SOLN 658650 ENOXAPARIN SODIUM Inactive Vital Signs Date Name Value Unit Range Description blood pressure, diastolic - 8462-4 74 mm[Hg] BP mane blood pressure, systolic - 8480-6 159 mm[Hg] BP sys pulse rate E&M - 8867-4 71 /min H eart rate temperature E&M 97.6 [degF] Body temp erature weight E&M - 3141-9 235 [lb_av] Weigh t Measured Diagnostic Results Date Name Value Unit Range Description Append: Anticoagulation Management - Coa gulation international normalized ratio (INR) coagulation managed by Mitch Urbina DO Lab Report: CBC W/DIFF - Hematology leukocyte [...] Panel, HGBA1C, MICROALBUMIN, Uric Acid - Chemistry sodium, serum 136 mmol/L 890-564 7935/07/25 potassium, serum 4.6 mmol/L 3.5-5.2 chloride, serum [...] % of total hemoglobin 7.7 % 4.3-6.0 albumin/creatinine ratio, urine < 30 mg/g mg/g{creat} 0-2 9 uric acid, serum 10.3 mg/dL 2.6-7.2 Lab Report: CBC, Comp. Metabolic Panel, HGBA1C, MICROALBUMIN, Uric Acid - Hematology hematocrit, blood 40.1 % 41.0-53.0 mean corpuscular volume, RBC 80 fL 80-97 mean corpuscular hemoglobin, RBC 25.6 pg 27. 0-31.2 mean corpuscular hemoglobin concentration, RBC 32.0 G/DL % 31.8-35.4 red blood cell distribution width 18.3 % 11 .6-14.8 platelet count 277 10^3/MM^3 10*3/mm3 280-075 9242/07/25 hemoglobin, blood 12.8 g/dL 13.5-17.5 erythrocyte (RBC) count 5.02 10^6/MM^3 10*6/mm3 4.69-6.1 3 leukocyte count, blood 6.6 10^3/MM^3 10*3/mm3 4.6-10.2 Lab Report: CBC, Comp. Metabolic Panel, HGBA1C, MICROALBUMIN, Uric Acid - Lab microalbumin, urine 30 0-19 Lab Report: Comp. Metabolic Panel, HGBA1 C, Lipid Panel - Chemistry cholesterol, serum 130 mg/dL 706-332 4869/11/14 triglyceride, serum, fasting 288 mg/dL 30-200 HDL cholesterol, serum 33 mg/dL 32-96 LDL cholesterol, serum 39 mg/dL 0-130 chloride, serum 100 mmol/L 98-107 potassium, serum 4.4 mmol/L 3.5-5.2 sodium, serum 137 mmol/L 674-098 0614/11/14 carbon dioxide, venous blood 33.0 mmol/L 21.0-32 .0 blood glucose 181 mg/dL 65-110 urea nitrogen, blood 28 mg/dL 7-18 creatinine, serum 1.30 mg/dL 0.60-1.30 alanine aminotransferase (SGPT), serum 38 U/L 12-78 aspartate aminotransferase (SGOT), serum 34 U/L 15-37 calcium, serum 10.4 mg/dL 8.5-10.1 bilirubin, serum, total 0.90 mg/dL 0.00-1.00 hemoglobin A1C, blood, as % of total hemoglobin 8.0 % 4.3-6.0 Lab Report: Comp. Metabolic Panel, HGBA1 C, Lipid Panel, Prothrombin Time - Chemistry sodium, serum 136 mmol/L 958-492 8570/12/02 potassium, serum 4.4 mmol/L 3.5-5.2 chloride, serum [...] 7.6 % 4.3-6.0 cholesterol, serum 117 mg/dL 090-240 7425/12/02 triglyceride, serum, fasting 226 mg/dL 30-200 HDL [...] (INR) 2.2 1.0-3.5 international normalized ratio (INR) 1.7 1.0-3.5 prothrombin time (patient) 20.1 SECS s 11.1-13.4 international normalized ratio (INR) 2.6 1.0-3.5 prothrombin time (patient) 18.4 SECS s 11.1-13.4 international normalized ratio (INR) 2.2 1.0-3.5 prothrombin time (patient) 16.0 SECS s 11.1-13.4 prothrombin time (patient) 19.9 SECS s 11.1-13.4 international normalized ratio (INR) 2.6 1.0-3.5 prothrombin time (patient) 18.6 SECS s 11.1-13.4 international normalized ratio (INR) 2.2 1.0-3.5 Encounters Code Encounter Date Provider Facility CPT-[id number] Level 3 Est. Patient 17:01:00 ROUTE JUMPER Mitch luis [facility] CPT-67701 Level 3 Est. Patient 13:53:19 ROUTE JUMP[employer] Mitch luis [facility] CPT-34333 Level 3 Est. Patient 19:19:37 R[employer]TE [employer]ER Mitch luis [facility] CPT-79877 Level 3 Est. Patient 13:25:53 ROUTE JUMPER Tavo toure MD [facility] CPT-80740 Level 3 Est. Patient 18:17:28 CDT Mitch luis [facility] CPT-60750 Level 3 Est. Patient 15:22:57 CDT Mitch luis [facility] CPT-71312 Level 3 Est. Patient 18:21:50 CDT Mitch luis [facility] CPT-57543 Level 3 Est. Patient 18:20:38 CDT Mitch luis [facility] CPT-76517 Level 3 Est. Patient 15:37:55 CDT Mitch luis [facility] CPT-01694 Level 2 Est. Patient 15:54:44 CDT Carmine benton MD [facility] CPT-42283 Level 3 Est. Patient 21:46:01 [employer]TE [employer] Mitch luis [facility] CPT-08482 Level 3 Est. Patient 22:15:50 CDT Mitch luis [facility] CPT-37250 Level 3 Est. Patient 10:48:15 CDT Mitch luis [facility] CPT-96659 Level 3 Est. Patient 23:20:57 CDT Tavo toure MD [facility] CPT-25199 Level 3 Est. Patient 16:26:13 CDT Mitch luis [facility] Procedures Code Procedure Name Date Entry Date Standard Desc ription CPT-29859 Venipuncture Draw Fee 10:13:28 [employer]TE [employer] CPT-65823 Venipuncture Draw Fee 08:31:11 CDT CPT-32124 Aspir/Inject Med Joint 18:17:28 CDT CPT-82150 Venipuncture Draw Fee 10:13:30 CDT CPT-37772 Venipuncture Draw Fee 08:31:43 R[employer]TE JUMP[employer] CPT-JTINJ Joint Injection 18:34:50 CDT CPT-49399 Knee 3V 12:25:09 CDT CPT-10722 Venipuncture Draw Fee 12:15:57 CDT CPT-060 Medical Surveillance Exam 21:31:43 CDT 2011 CPT-98038 Venipuncture Draw Fee 08:32:05 ROUTE JUMPER CPT-OV Office Visit 18:19:06 CDT
--- OUTSIDE RECORDS SUMMARY | 2020-01-18 12:07 | XMS REPORT | Clinical Summary ---
Author Author Admin, Mitch Leon Organization [facility] [place] Address Unknown Phone Unavailable Allergies, Adverse Reactions, [...] Coronary atherosclerosis of unspecified type of vessel, [place] or graft EDEMA 782.3 Resolved Mitch Urbina [...] Mitch Urbina DO Cough, chronic ICD-786.2 Inactive iMtch Tejeda O Sebaceous cyst, infected ICD-706.2 Inactive Mitch Urbina DO Cellulitis ICD-682.9 Inactive Mitch Urbina DO 10/23 Medication List Medication Instructions Start Date Stop Date Generic Name NDC Status Provider Patient Instruction FLUTICASONE PROPIONATE 50 MCG/ACT NASAL SUSPENSION 1 s pray each nostril twice daily for 1 week, then once daily FLUTICASONE FL OPIONATE 65921728422 Active Becky Sell [employer] Active PREDNISONE 20 MG ORAL TABLET 2 tabs daily for 3 days 1 tab d aily for 3 days PREDNISONE 68160236393 No Longer Active Becky Sell [employer] Active MINOXIDIL 2.5 MG ORAL TABLET 1 tablet twice daily for high b lood pressure MINOXIDIL 85385183673 Active Mitch Urbina DO Ac tive METFORMIN HCL ER 500 MG ORAL TABLET EXTENDED RELEASE 2 4 HOUR 2 tablets by mouth twice daily METFORMIN HCL 95185086156 Active Mitch Urbina DO Active GLIMEPIRIDE 4 MG ORAL TABLET 1 tablet by mouth twice daily f or diabetes GLIMEPIRIDE 67286503721 Active Mitch Urbina DO Active GLIMEPIRIDE 2 MG ORAL TABLET 1 po BID GLIMEPI RIDE 45528545457 No Longer Active Mitch Urbina DO Active AMLODIPINE BESYLATE 5 MG ORAL TABLET 1 tablet by mouth daily AMLODIPINE BESYLATE 40196211105 Active Mitch Urbina DO Active PROVIGIL 200 MG ORAL TABLET 1/2 tab po q day MODA FINIL 67239583660 Active Renee Oconnor LPN Active FAMOTIDINE 20 MG ORAL TABLET by mouth twice a day 2017 FAMOTIDINE 78987495113 No Longer Active Mitch Urbina DO Active COLCRYS 0.6 MG ORAL TABLET 1 tab qid prn gout C OLCHICINE 14375016145 No Longer Active Mitch Urbina DO Active KEFLEX 500 MG ORAL CAPSULE 1 po qid CEPHALEXI N 36143310583 No Longer Active Mitch Urbina DO Active LOSARTAN POTASSIUM 100 MG ORAL TABLET 1 pill by mouth daily, for blood pressure LOSARTAN POTASSIUM 70842790828 Active Ana Ocampo Active AMLODIPINE BESYLATE 5 MG ORAL TABLET 1 tablet by mouth daily 201 01/20/04 AMLODIPINE BESYLATE 06149184095 No Longer Active Joe fulton APRN Active MITIGARE 0.6 MG ORAL CAPSULE 2 capsules at onset of go ut pain, then take one capsule at 1 hour if symptoms persist. COLCHICINE 59 128072315 Active Mitch Urbina DO Active COUMADIN 1 MG ORAL TABLET 2 tabs orally daily with the 5mg tab to equal 7mg daily WARFARIN SODIUM 76745151578 Active Maria Briones Active INVOKANA 100 MG ORAL TABLET 1 tablet orally daily CANAGLIFLOZIN 70778055195 Active Mitch Urbina DO Active MECLIZINE HCL 25 MG ORAL TABLET 1 po tid 3 days, then 1/2 ta b tid 3 days MECLIZINE HCL 57424451736 No Longer Active Corey SEGURA Active ALLOPURINOL 300 MG ORAL TABLET Take 1 tablet by mouth daily 2012 ALLOPURINOL 27986363851 No Longer Active Corey SEGURA Active CLONIDINE HCL 0.1 MG ORAL TABLET 1 po bid 7 days, then 1/2 t ab po bid 7 days CLONIDINE HCL 74184824482 No Longer Active Corey SEGURA Active COUMADIN 5 MG ORAL TABLET 1 tab PO daily WARFAR IN SODIUM 26499582179 Active Renee Oconnor LPN Active COUMADIN 4 MG ORAL TABLET 1 tablet daily WARFAR IN SODIUM 72072850202 No Longer Active Corey SEGURA Active POLYTRIM 48341-4.1 UNIT/ML-% OPHTHALMIC SOLUTION 1 rui p in affected eye every 3 hours while awake x 7 days POLYMYXIN B-TRIMETHOP RIM 30933118108 No Longer Active Corey SEGURA Active LOSARTAN POTASSIUM-HCTZ 100-12.5 MG ORAL TABLET 1 by m outh daily for high blood pressure LOSARTAN POTASSIUM-HCTZ 38775553650 No Longer A ctive Mitch Urbina DO Active LISINOPRIL-HYDROCHLOROTHIAZIDE 20-12.5 MG ORAL TABLET 1 tab by m outh daily LISINOPRIL-HYDROCHLOROTHIAZIDE 29719755863 No Longer Active Mitch Urbina DO Active LISINOPRIL 20 MG ORAL TABLET 1 tab po at HS LIS INOPRIL 36837006125 No Longer Active Mitch Urbina DO Active COUMADIN 5 MG ORAL TABLET 1 by mouth every other day 2 WARFARIN SODIUM 35358342257 No Longer Active Mitch Urbina DO Active COUMADIN 6 MG ORAL TABLET 1 by mouth every other day 2 WARFARIN SODIUM 02220982857 No Longer Active Mitch Urbina DO Active SIMVASTATIN 40 MG ORAL TABLET 1 tab daily at bedtime SIMVASTATIN 20559293986 Active Maria Rivas RN Active SIMVASTATIN 20 MG ORAL TABLET 1 tab daily at bedtime 2 SIMVASTATIN 07649184993 No Longer Active Mitch Urbina DO Active LOVENOX 100 MG/ML SUBCUTANEOUS SOLUTION One injection twice a da y ENOXAPARIN SODIUM 22266818948 No Longer Active Carmine Yusuf MD Active JANUVIA 50 MG ORAL TABLET Take one by mouth daily SITAGLIPTIN PHOSPHATE 01862769980 Active Renee Oconnor LPN Active JANUVIA 100 MG ORAL TABLET 1/2 by mouth every day 2011 SITAGLIPTIN PHOSPHATE 93443405750 No Longer Active Bijal Segal RN Acti ve METFORMIN HCL 500 MG ORAL TABLET 2 by mouth twice daily METFORMIN HCL 93364727930 No Longer Active Renee Oconnor LPN Active COLCRYS 0.6 MG ORAL TABLET 1 po q 6 hours prn gout pain COLCHICINE 52931533447 No Longer Active Camila Reese Active LISINOPRIL 5 MG ORAL TABLET 1 by mouth every day 11/17 LISINOPRIL 27678268280 No Longer Active Nguyen Ana Active KLOR-CON 20 MEQ ORAL PACKET Take one by mouth daily 09/10/08 POTASSIUM CHLORIDE 44332634398 No Longer Active Nguyen Ana Active FUROSEMIDE 40 MG ORAL TABLET 1 by mouth daily F UROSEMIDE 61401086519 No Longer Active Nguyen Ana Active PROVIGIL 100 MG ORAL TABLET Take one by mouth daily 08/20/04 MODAFINIL 77433900364 No Longer Active Mitch Urbina DO Active BACTRIM DS 800-160 MG ORAL TABLET 1 tab by mouth twice daily 201 10/19/09 TRIMETHOPRIM-SULFAMETHOXAZOLE 75922650447 No Longer Active Elian Hays MD Active ADULT ASPIRIN LOW STRENGTH 81 MG ORAL TABLET DISINTEGR ATING 1 by mouth every daily ASPIRIN 12739940358 Active Mitch Urbina DO Ac tive METOPROLOL TARTRATE 50 MG ORAL TABLET 1 by mouth twice daily METOPROLOL TARTRATE 17308087873 Active Maria Rivas RN Ac tive BACTRIM DS 800-160 MG ORAL TABLET 1 tab by mouth twice daily 201 10/19/09 BACTRIM DS 800-160 MG ORAL TABLET 096681 TRIMETHOPRIM-SULFAMETHOXAZOLE Inactive PROVIGIL 100 MG ORAL TABLET Take one by mouth daily 08/20/04 PROVIGIL 100 MG ORAL TABLET 168185 MODAFINIL Inactive FUROSEMIDE 40 MG ORAL TABLET 1 by mouth daily FUROSEMIDE 40 MG ORAL TABLET 219796 FUROSEMIDE Inactive KLOR-CON 20 MEQ ORAL PACKET Take one by mouth daily 09/10/08 KLOR- CON 20 MEQ ORAL PACKET 0054696 POTASSIUM CHLORIDE Inactive LISINOPRIL 5 MG ORAL TABLET 1 by mouth every day 11/17 LISINOPRIL 5 MG ORAL TABLET 822231 LISINOPRIL Inactive COLCRYS 0.6 MG ORAL TABLET 1 po q 6 hours prn gout pain COLCRYS 0.6 MG ORAL TABLET 860738 COLCHICINE Inactive JANUVIA 100 MG ORAL TABLET 1/2 by mouth every day 2011 JANUVIA 100 MG ORAL TABLET SITAGLIPTIN PHOSPHATE Inactive SIMVASTATIN 20 MG ORAL TABLET 1 tab daily at bedtime 2 SIMVASTATIN 20 MG ORAL TABLET 678547 SIMVASTATIN Inactive COUMADIN 6 MG ORAL TABLET 1 by mouth every other day 2 COUMADIN 6 MG ORAL TABLET 168938 WARFARIN SODIUM Inactive COUMADIN 5 MG ORAL TABLET 1 by mouth every other day 2 COUMADIN 5 MG ORAL TABLET 758270 WARFARIN SODIUM Inactive LISINOPRIL 20 MG ORAL TABLET 1 tab po at HS LISINOPRIL 20 MG ORAL TABLET 289803 LISINOPRIL Inactive LISINOPRIL-HYDROCHLOROTHIAZIDE 20-12.5 MG ORAL TABLET 1 tab by m outh daily LISINOPRIL-HYDROCHLOROTHIAZIDE 20-12.5 MG ORAL TABLET 977257 LISINOPRIL-HYDROCHLOROTHIAZIDE Inactive POLYTRIM 56275-9.1 UNIT/ML-% OPHTHALMIC SOLUTION 1 rui p in affected eye every 3 hours while awake x 7 days POLYTRIM 1000 0-0.1 UNIT/ML-% OPHTHALMIC SOLUTION 425412 POLYMYXIN B-TRIMETHOPRIM Inactive COUMADIN 4 MG ORAL TABLET 1 tablet daily COUMADIN 4 MG ORAL TABLET 990514 WARFARIN SODIUM Inactive CLONIDINE HCL 0.1 MG ORAL TABLET 1 po bid 7 days, then 1/2 t ab po bid 7 days CLONIDINE HCL 0.1 MG ORAL TABLET 118654 CLONIDIN E HCL Inactive ALLOPURINOL 300 MG ORAL TABLET Take 1 tablet by mouth daily 2012 ALLOPURINOL 300 MG ORAL TABLET 840747 ALLOPURINOL I nactive MECLIZINE HCL 25 MG ORAL TABLET 1 po tid 3 days, then 1/2 ta b tid 3 days MECLIZINE HCL 25 MG ORAL TABLET 170918 MECLIZINE HCL Inactive AMLODIPINE BESYLATE 5 MG ORAL TABLET 1 tablet by mouth daily 201 01/20/04 AMLODIPINE BESYLATE 5 MG ORAL TABLET 086197 AMLODIPINE BESYLATE Inactive KEFLEX 500 MG ORAL CAPSULE 1 po qid K EFLEX 500 MG ORAL CAPSULE 285755 CEPHALEXIN Inactive COLCRYS 0.6 MG ORAL TABLET 1 tab qid prn gout COLCRYS 0.6 MG ORAL TABLET 407497 COLCHICINE Inactive FAMOTIDINE 20 MG ORAL TABLET by mouth twice a day 2017 FAMOTIDINE 20 MG ORAL TABLET 232072 FAMOTIDINE Inactive GLIMEPIRIDE 2 MG ORAL TABLET 1 po BID GLIMEPIRIDE 2 MG ORAL TABLET 221896 GLIMEPIRIDE Inactive LOVENOX 100 MG/ML SUBCUTANEOUS SOLUTION One injection twice a da y LOVENOX 100 MG/ML SUBCUTANEOUS SOLUTION 393401 ENOXAPAR IN SODIUM Inactive PREDNISONE 20 MG ORAL TABLET 2 tabs daily for 3 days 1 tab d aily for 3 days PREDNISONE 20 MG ORAL TABLET 178854 PREDNISONE Inactive Advance Directives Directive Description Start [...] mg/dL Encounters Code Encounter Date Provider Facility CPT-20755 Level 3 Est. Patient 15:18:36 CDT Becky Se anderson [facility] CPT-77945 [id number] Vst-Est Level IV 10:06:35 CDT Stephy Ambrose [facility] CPT-64943 [id number] Vst-Est Level IV 10:52:00 SPECIAL PROJECTS COORDINATOR Stephy Amrbose [facility] CPT-83041 Level 3 Est. Patient 18:25:53 CDT Mitch luis [facility] CPT-96603 Level 3 Est. Patient 19:43:34 CDT Mitch luis [facility] CPT-63666 Level 4 Est. Patient 09:30:18 CDT Mitch luis [facility] CPT-29694 Level 3 Est. Patient 15:10:14 CDT Joe kamara [facility] CPT-81375 Level 3 Est. Patient 15:03:46 CDT Joe kamara [facility] CPT-86691 Level 3 Est. Patient 14:21:06 CDT Mitch luis [facility] CPT-24086 Level 3 Est. Patient 14:52:06 CDT Joe kamara [facility] CPT-03797 Level 3 Est. Patient 09:34:30 SPECIAL PROJECTS COORDINATOR Mitch luis [facility] CPT-82354 Level 3 Est. Patient 09:37:15 CDT Mitch luis [facility] CPT-36704 Level 3 Est. Patient 17:01:00 SPECIAL PROJECTS COORDINATOR Mitch luis [facility] CPT-52060 Level 3 Est. Patient 13:53:19 SPECIAL PROJECTS COORDINATOR Mitch luis [facility] CPT-46671 Level 3 Est. Patient 19:19:37 SPECIAL PROJECTS COORDINATOR Mitch luis [facility] CPT-74963 Level 3 Est. Patient 13:25:53 SPECIAL PROJECTS COORDINATOR Tavo toure MD [facility] CPT-51284 Level 3 Est. Patient 18:17:28 CDT Mitch luis [facility] CPT-73632 Level 3 Est. Patient 15:22:57 CDT Mitch luis [facility] CPT-08580 Level 3 Est. Patient 18:21:50 CDT Mitch luis [facility] CPT-85616 Level 3 Est. Patient 18:20:38 CDT Mitch luis [facility] CPT-02319 Level 3 Est. Patient 15:37:55 CDT Mitch luis [facility] CPT-11280 Level 2 Est. Patient 15:54:44 CDT Carmine benton MD [facility]-22213 Level 3 Est. Patient 21:46:01 SPECIAL PROJECTS COORDINATOR Mitch luis [facility] CPT-78871 Level 3 Est. Patient 22:15:50 CDT Mitch luis [facility] CPT-49035 Level 3 Est. Patient 10:48:15 CDT Mitch luis [facility] CPT-23909 Level 3 Est. Patient 23:20:57 CDT Tavo toure MD [facility] CPT-13964 Level 3 Est. Patient 16:26:13 CDT Mitch luis [facility] Procedures Code Procedure Name Date Entry Date Standard Desc ription CPT-19574 Venipuncture Draw Fee 14:56:20 CDT CPT-JTINJ Asp/Joint Injection 18:47:02 CDT CPT-31908 Venipuncture Draw Fee 09:26:17 CDT CPT-78185 PT/INR - LAB USE ONLY 13:32:49 SPECIAL PROJECTS COORDINATOR CPT-19473 Venipuncture Draw Fee 13:32:49 SPECIAL PROJECTS COORDINATOR CPT-59415 PT/INR - LAB USE ONLY 10:34:49 SPECIAL PROJECTS COORDINATOR CPT-22237 Venipuncture Draw Fee 10:34:48 SPECIAL PROJECTS COORDINATOR CPT-45350 PT/INR - LAB USE ONLY 09:22:03 SPECIAL PROJECTS COORDINATOR CPT-20053 Venipuncture Draw Fee 09:22:02 SPECIAL PROJECTS COORDINATOR CPT-50886 Hemoccult IFOBT - LAB USE ONLY 10:27:22 CDT CPT-43155 Venipuncture Draw Fee 08:27:08 CDT CPT-53879 Liver Profile - LAB USE ONLY 08:27:07 CDT 2 CPT-92653 Microalbumin - LAB USE ONLY 08:27:07 CDT 20 25/05/09 CPT-33607 PT/INR - LAB USE ONLY 08:27:07 CDT CPT-81423 HGBA1C - LAB USE ONLY 08:27:07 CDT CPT-26056 CBC - LAB USE ONLY 08:27:07 CDT CPT-80160 Venipuncture Draw Fee 11:09:14 CDT CPT-62248 Venipuncture Draw Fee 08:32:21 SPECIAL PROJECTS COORDINATOR CPT-48759 Venipuncture Draw Fee 09:38:56 SPECIAL PROJECTS COORDINATOR CPT-34963 No Charge Offi Visit 21:36:07 CDT 1 CPT-89916 Venipuncture Draw Fee 10:13:28 SPECIAL PROJECTS COORDINATOR CPT-95127 Venipuncture Draw Fee 08:31:11 CDT CPT-25574 Aspir/Inject Med Joint 18:17:28 CDT CPT-80867 Venipuncture Draw Fee 10:13:30 CDT CPT-90801 Venipuncture Draw Fee 08:31:43 SPECIAL PROJECTS COORDINATOR CPT-JTINJ Joint Injection 18:34:50 CDT CPT-72718 Knee 3V 12:25:09 CDT CPT-13752 Venipuncture Draw Fee 12:15:57 CDT CPT-060 Medical Surveillance Exam 21:31:43 CDT 2011 CPT-55553 Venipuncture Draw Fee 08:32:05 SPECIAL PROJECTS COORDINATOR CPT-OV Office Visit 18:19:06 CDT
--- OUTSIDE RECORDS SUMMARY | 2020-01-18 12:07 | XMS REPORT | Clinical Summary ---
Author Author Admin, Mitch Leon Organization [facility] [employer] Address Unknown Phone Unavailable Allergies, Adverse [...] (CURRENT) USE OF ANTICOAGULANTS ICD-V58.61 Inactive Mitch rUbina DO EDEMA ICD-782.3 Inactive Mitch Urbina DO [...] for 1 week, then once daily FLUTICASONE IA OPIONATE 02281579563 Active Becky Sell PHYSICAL SECURITY SPECIALIST Active PREDNISONE 20 MG ORAL TABLET 2 tabs daily for 3 days 1 tab d aily for 3 days PREDNISONE 33221630823 No Longer Active Becky Sell PHYSICAL SECURITY SPECIALIST Active MINOXIDIL 2.5 MG ORAL TABLET 1 tablet twice daily for high b lood pressure MINOXIDIL 29839592070 Active Mitch Urbina DO Ac tive METFORMIN HCL ER 500 MG ORAL TABLET EXTENDED RELEASE 2 4 HOUR 2 tablets by mouth twice daily METFORMIN HCL 15836721062 Active Mitch Urbina DO Active GLIMEPIRIDE 4 MG ORAL TABLET 1 tablet by mouth twice daily f or diabetes GLIMEPIRIDE 37283157176 Active iMtch Urbina DO Active GLIMEPIRIDE 2 MG ORAL TABLET 1 po BID GLIMEPI RIDE 46660266262 No Longer Active Mitch Urbina DO Active AMLODIPINE BESYLATE 5 MG ORAL TABLET 1 tablet by mouth daily AMLODIPINE BESYLATE 43680506840 Active Mitch Urbina DO Active PROVIGIL 200 MG ORAL TABLET 1/2 tab po q day MODA FINIL 65833667559 Active Renee Oconnor LPN Active FAMOTIDINE 20 MG ORAL TABLET by mouth twice a day 2017 FAMOTIDINE 91094955660 No Longer Active Mitch Urbina DO Active COLCRYS 0.6 MG ORAL TABLET 1 tab qid prn gout C OLCHICINE 37043285311 No Longer Active Mitch Urbina DO Active KEFLEX 500 MG ORAL CAPSULE 1 po qid CEPHALEXI N 04236786618 No Longer Active Mitch Urbina DO Active LOSARTAN POTASSIUM 100 MG ORAL TABLET 1 pill by mouth daily, for blood pressure LOSARTAN POTASSIUM 98006112099 Active Ana Ocampo Active AMLODIPINE BESYLATE 5 MG ORAL TABLET 1 tablet by mouth daily 201 01/20/04 AMLODIPINE BESYLATE 94814206167 No Longer Active Joe fulton APRN Active MITIGARE 0.6 MG ORAL CAPSULE 2 capsules at onset of go ut pain, then take one capsule at 1 hour if symptoms persist. COLCHICINE 59 391782064 Active Mitch Urbina DO Active COUMADIN 1 MG ORAL TABLET 2 tabs orally daily with the 5mg tab to equal 7mg daily WARFARIN SODIUM 72097290173 Active Maria Briones Active INVOKANA 100 MG ORAL TABLET 1 tablet orally daily CANAGLIFLOZIN 35848256813 Active Mitch Urbina DO Active MECLIZINE HCL 25 MG ORAL TABLET 1 po tid 3 days, then 1/2 ta b tid 3 days MECLIZINE HCL 77213491420 No Longer Active Corey SEGURA Active ALLOPURINOL 300 MG ORAL TABLET Take 1 tablet by mouth daily 2012 ALLOPURINOL 31616986872 No Longer Active Corey SEGURA Active CLONIDINE HCL 0.1 MG ORAL TABLET 1 po bid 7 days, then 1/2 t ab po bid 7 days CLONIDINE HCL 09999068321 No Longer Active Corey SEGURA Active COUMADIN 5 MG ORAL TABLET 1 tab PO daily WARFAR IN SODIUM 59241370986 Active Renee Oconnor LPN Active COUMADIN 4 MG ORAL TABLET 1 tablet daily WARFAR IN SODIUM 76549273338 No Longer Active Corey SEGURA Active POLYTRIM 90393-4.1 UNIT/ML-% OPHTHALMIC SOLUTION 1 rui p in affected eye every 3 hours while awake x 7 days POLYMYXIN B-TRIMETHOP RIM 33600281690 No Longer Active Corey SEGURA Active LOSARTAN POTASSIUM-HCTZ 100-12.5 MG ORAL TABLET 1 by m outh daily for high blood pressure LOSARTAN POTASSIUM-HCTZ 51557730141 No Longer A ctive Mitch Urbina DO Active LISINOPRIL-HYDROCHLOROTHIAZIDE 20-12.5 MG ORAL TABLET 1 tab by m outh daily LISINOPRIL-HYDROCHLOROTHIAZIDE 08727695638 No Longer Active Mitch Urbina DO Active LISINOPRIL 20 MG ORAL TABLET 1 tab po at HS LIS INOPRIL 09372299591 No Longer Active Mitch Urbina DO Active COUMADIN 5 MG ORAL TABLET 1 by mouth every other day 2 WARFARIN SODIUM 55118696935 No Longer Active Mitch Urbina DO Active COUMADIN 6 MG ORAL TABLET 1 by mouth every other day 2 WARFARIN SODIUM 28814542384 No Longer Active Mitch Urbina DO Active SIMVASTATIN 40 MG ORAL TABLET 1 tab daily at bedtime SIMVASTATIN 15171331719 Active Maria Rivas RN Active SIMVASTATIN 20 MG ORAL TABLET 1 tab daily at bedtime 2 SIMVASTATIN 27495114207 No Longer Active Mitch Urbina DO Active LOVENOX 100 MG/ML SUBCUTANEOUS SOLUTION One injection twice a da y ENOXAPARIN SODIUM 42323879027 No Longer Active Carmine Yusuf MD Active JANUVIA 50 MG ORAL TABLET Take one by mouth daily SITAGLIPTIN PHOSPHATE 83918195219 Active Renee Oconnor LPN Active JANUVIA 100 MG ORAL TABLET 1/2 by mouth every day 2011 SITAGLIPTIN PHOSPHATE 21590866851 No Longer Active Bijal Segal RN Acti ve METFORMIN HCL 500 MG ORAL TABLET 2 by mouth twice daily METFORMIN HCL 77107179403 No Longer Active Renee Oconnor LPN Active COLCRYS 0.6 MG ORAL TABLET 1 po q 6 hours prn gout pain COLCHICINE 80459307634 No Longer Active Camila Reese Active LISINOPRIL 5 MG ORAL TABLET 1 by mouth every day 11/17 LISINOPRIL 03591271962 No Longer Active Nguyen Ana Active KLOR-CON 20 MEQ ORAL PACKET Take one by mouth daily 09/10/08 POTASSIUM CHLORIDE 23027240032 No Longer Active Nguyen Ana Active FUROSEMIDE 40 MG ORAL TABLET 1 by mouth daily F UROSEMIDE 22952098865 No Longer Active Nguyen Ana Active PROVIGIL 100 MG ORAL TABLET Take one by mouth daily 08/20/04 MODAFINIL 66001711015 No Longer Active Mitch Urbina DO Active BACTRIM DS 800-160 MG ORAL TABLET 1 tab by mouth twice daily 201 10/19/09 TRIMETHOPRIM-SULFAMETHOXAZOLE 67040203857 No Longer Active Elian Hays MD Active ADULT ASPIRIN LOW STRENGTH 81 MG ORAL TABLET DISINTEGR ATING 1 by mouth every daily ASPIRIN 29805824875 Active Mitch Urbina DO Ac tive METOPROLOL TARTRATE 50 MG ORAL TABLET 1 by mouth twice daily METOPROLOL TARTRATE 39991745125 Active Maria Rivas RN Ac tive BACTRIM DS 800-160 MG ORAL TABLET 1 tab by mouth twice daily 201 10/19/09 BACTRIM DS 800-160 MG ORAL TABLET 343768 TRIMETHOPRIM-SULFAMETHOXAZOLE Inactive PROVIGIL 100 MG ORAL TABLET Take one by mouth daily 08/20/04 PROVIGIL 100 MG ORAL TABLET 679905 MODAFINIL Inactive FUROSEMIDE 40 MG ORAL TABLET 1 by mouth daily FUROSEMIDE 40 MG ORAL TABLET 119659 FUROSEMIDE Inactive KLOR-CON 20 MEQ ORAL PACKET Take one by mouth daily 09/10/08 KLOR- CON 20 MEQ ORAL PACKET 1632845 POTASSIUM CHLORIDE Inactive LISINOPRIL 5 MG ORAL TABLET 1 by mouth every day 11/17 LISINOPRIL 5 MG ORAL TABLET 866099 LISINOPRIL Inactive COLCRYS 0.6 MG ORAL TABLET 1 po q 6 hours prn gout pain COLCRYS 0.6 MG ORAL TABLET 275806 COLCHICINE Inactive JANUVIA 100 MG ORAL TABLET 1/2 by mouth every day 2011 JANUVIA 100 MG ORAL TABLET SITAGLIPTIN PHOSPHATE Inactive SIMVASTATIN 20 MG ORAL TABLET 1 tab daily at bedtime 2 SIMVASTATIN 20 MG ORAL TABLET 058316 SIMVASTATIN Inactive COUMADIN 6 MG ORAL TABLET 1 by mouth every other day 2 COUMADIN 6 MG ORAL TABLET 647770 WARFARIN SODIUM Inactive COUMADIN 5 MG ORAL TABLET 1 by mouth every other day 2 COUMADIN 5 MG ORAL TABLET 346815 WARFARIN SODIUM Inactive LISINOPRIL 20 MG ORAL TABLET 1 tab po at HS LISINOPRIL 20 MG ORAL TABLET 171693 LISINOPRIL Inactive LISINOPRIL-HYDROCHLOROTHIAZIDE 20-12.5 MG ORAL TABLET 1 tab by m outh daily LISINOPRIL-HYDROCHLOROTHIAZIDE 20-12.5 MG ORAL TABLET 558111 LISINOPRIL-HYDROCHLOROTHIAZIDE Inactive POLYTRIM 67450-6.1 UNIT/ML-% OPHTHALMIC SOLUTION 1 rui p in affected eye every 3 hours while awake x 7 days POLYTRIM 1000 0-0.1 UNIT/ML-% OPHTHALMIC SOLUTION 216487 POLYMYXIN B-TRIMETHOPRIM Inactive COUMADIN 4 MG ORAL TABLET 1 tablet daily COUMADIN 4 MG ORAL TABLET 630826 WARFARIN SODIUM Inactive CLONIDINE HCL 0.1 MG ORAL TABLET 1 po bid 7 days, then 1/2 t ab po bid 7 days CLONIDINE HCL 0.1 MG ORAL TABLET 332130 CLONIDIN E HCL Inactive ALLOPURINOL 300 MG ORAL TABLET Take 1 tablet by mouth daily 2012 ALLOPURINOL 300 MG ORAL TABLET 897910 ALLOPURINOL I nactive MECLIZINE HCL 25 MG ORAL TABLET 1 po tid 3 days, then 1/2 ta b tid 3 days MECLIZINE HCL 25 MG ORAL TABLET 672314 MECLIZINE HCL Inactive AMLODIPINE BESYLATE 5 MG ORAL TABLET 1 tablet by mouth daily 201 01/20/04 AMLODIPINE BESYLATE 5 MG ORAL TABLET 864099 AMLODIPINE BESYLATE Inactive KEFLEX 500 MG ORAL CAPSULE 1 po qid K EFLEX 500 MG ORAL CAPSULE 352203 CEPHALEXIN Inactive COLCRYS 0.6 MG ORAL TABLET 1 tab qid prn gout COLCRYS 0.6 MG ORAL TABLET 518594 COLCHICINE Inactive FAMOTIDINE 20 MG ORAL TABLET by mouth twice a day 2017 FAMOTIDINE 20 MG ORAL TABLET 001926 FAMOTIDINE Inactive GLIMEPIRIDE 2 MG ORAL TABLET 1 po BID GLIMEPIRIDE 2 MG ORAL TABLET 320865 GLIMEPIRIDE Inactive LOVENOX 100 MG/ML SUBCUTANEOUS SOLUTION One injection twice a da y LOVENOX 100 MG/ML SUBCUTANEOUS SOLUTION 551582 ENOXAPAR IN SODIUM Inactive PREDNISONE 20 MG ORAL TABLET 2 tabs daily for 3 days 1 tab d aily for 3 days PREDNISONE 20 MG ORAL TABLET 271094 PREDNISONE Inactive Advance Directives Directive Description Start [...] mg/dL Encounters Code Encounter Date Provider Facility CPT-09951 Level 3 Est. Patient 15:18:36 CDT Becky Se anderson [facility] CPT-00737 [id number] Vst-Est Level IV 10:06:35 CDT Stephy Ambrose [facility] CPT-81267 [id number] Vst-Est Level IV 10:52:00 POURER METAL Stephy Ambrose [facility] CPT-32719 Level 3 Est. Patient 18:25:53 CDT Mitch luis [facility] CPT-04166 Level 3 Est. Patient 19:43:34 CDT Mitch luis [facility] CPT-53692 Level 4 Est. Patient 09:30:18 CDT Mitch luis [facility] CPT-59819 Level 3 Est. Patient 15:10:14 CDT Joe kamara [facility] CPT-84676 Level 3 Est. Patient 15:03:46 CDT Joe kamara [facility] CPT-73542 Level 3 Est. Patient 14:21:06 CDT Mitch luis [facility] CPT-99267 Level 3 Est. Patient 14:52:06 CDT Joe kamara [facility] CPT-93730 Level 3 Est. Patient 09:34:30 POURER METAL Mitch luis [facility] CPT-26052 Level 3 Est. Patient 09:37:15 CDT Mitch luis [facility] CPT-42376 Level 3 Est. Patient 17:01:00 POURER METAL Mitch luis [facility] CPT-51461 Level 3 Est. Patient 13:53:19 POURER METAL Mitch luis [facility] CPT-63829 Level 3 Est. Patient 19:19:37 POURER METAL Mitch luis [facility] CPT-63031 Level 3 Est. Patient 13:25:53 POURER METAL Tavo toure MD [facility] CPT-40721 Level 3 Est. Patient 18:17:[address] [facility] CPT-36088 Level 3 Est. Patient 15:22:57 CDT Mitch luis [facility] CPT-34438 Level 3 Est. Patient 18:21:50 CDT Mitch luis [facility] CPT-34556 Level 3 Est. Patient 18:20:38 CDT Mitch luis [facility] CPT-94379 Level 3 Est. Patient 15:37:[address] [facility] CPT-58948 Level 2 Est. Patient 15:54:44 CDT Carmine benton MD [facility]-38000 Level 3 Est. Patient 21:46:01 POURER METAL Mitch luis [facility] CPT-93278 Level 3 Est. Patient 22:15:[address] [facility] CPT-59660 Level 3 Est. Patient 10:48:[address] [facility] CPT-85726 Level 3 Est. Patient 23:20:57 CDT Tavo toure MD [facility] CPT-93439 Level 3 Est. Patient 16:26:[address] [facility] Procedures Code Procedure Name Date Entry Date Standard Desc ription CPT-91162 Venipuncture Draw Fee 14:56:20 CDT CPT-JTINJ Asp/Joint Injection 18:47:02 CDT CPT-65131 Venipuncture Draw Fee 09:26:17 CDT CPT-47646 PT/INR - LAB USE ONLY 13:32:49 POURER METAL CPT-87900 Venipuncture Draw Fee 13:32:49 POURER METAL CPT-50659 PT/INR - LAB USE ONLY 10:34:49 POURER METAL CPT-76163 Venipuncture Draw Fee 10:34:48 POURER METAL CPT-55810 PT/INR - LAB USE ONLY 09:22:03 POURER METAL CPT-22172 Venipuncture Draw Fee 09:22:02 POURER METAL CPT-20544 Hemoccult IFOBT - LAB USE ONLY 10:27:22 CDT CPT-61322 Venipuncture Draw Fee 08:27:08 CDT CPT-77688 Liver Profile - LAB USE ONLY 08:27:07 CDT 2 CPT-25101 Microalbumin - LAB USE ONLY 08:27:07 CDT 20 25/05/09 CPT-31481 PT/INR - LAB USE ONLY 08:27:07 CDT CPT-41885 HGBA1C - LAB USE ONLY 08:27:07 CDT CPT-88013 CBC - LAB USE ONLY 08:27:07 CDT CPT-09306 Venipuncture Draw Fee 11:09:14 CDT CPT-62920 Venipuncture Draw Fee 08:32:21 POURER METAL CPT-90668 Venipuncture Draw Fee 09:38:56 POURER METAL CPT-91652 No Charge Offi Visit 21:36:07 CDT 1 CPT-51632 Venipuncture Draw Fee 10:13:28 POURER METAL CPT-74520 Venipuncture Draw Fee 08:31:11 CDT CPT-42049 Aspir/Inject Med Joint 18:17:28 CDT CPT-44652 Venipuncture Draw Fee 10:13:30 CDT CPT-00255 Venipuncture Draw Fee 08:31:43 POURER METAL CPT-JTINJ Joint Injection 18:34:50 CDT CPT-60933 Knee 3V 12:25:09 CDT CPT-24464 Venipuncture Draw Fee 12:15:57 CDT CPT-060 Medical Surveillance Exam 21:31:43 CDT 2011 CPT-55383 Venipuncture Draw Fee 08:32:05 POURER METAL CPT-OV Office Visit 18:19:06 CDT
--- OUTSIDE RECORDS SUMMARY | 2020-01-18 12:07 | XMS REPORT | Clinical Summary ---
Author Author Admin, Mitch Leon Organization [facility] Address Unknown Phone Unavailable Allergies, Adverse Reactions, [...] of vessel, [place] or graft EDEMA 782.3 Active Mitch Urbina [...] Olecranon bursitis UNSPECIFIED ANEMIA 285.9 Active Blessing Leon MA Anemia, unspecified Malaise and fatigue 780.79 [...] 1 tablet by mouth daily AMLODIPINE BESYLATE 34911940215 Active Mitch Urbina DO Active MECLIZINE HCL 25 MG TAB 1 po tid 3 days, then 1/2 tab tid 3 days MECLIZINE HCL 80877953151 No Longer Active Corey SEGURA Active ALLOPURINOL 300 MG TABS Take 1 tablet by mouth daily 2 ALLOPURINOL 82050854387 No Longer Active Corey SEGURA Activ e CLONIDINE HCL 0.1 MG TABS 1 po bid 7 days, then 1/2 tab po b id 7 days CLONIDINE HCL 20672169362 No Longer Active Corey SEGURA Active COUMADIN 5 MG TABS 1 tab PO daily WARFARIN SODIUM 27368528173 Active Mitch Urbina DO Active COUMADIN 4 MG TABS 1 tablet daily WARFARIN SODI UM 94267128590 No Longer Active Corey SEGURA Active POLYTRIM 85854-7.1 UNIT/ML-% SOLN 1 drop in affected e ye every 3 hours while awake x 7 days POLYMYXIN B-TRIMETHOPRIM 18543839690 N o Longer Active Corey SEGURA Active LOSARTAN POTASSIUM-HCTZ 100-12.5 MG TABS 1 by mouth da rocky for high blood pressure LOSARTAN POTASSIUM-HCTZ 96376284256 Active Stephy Urbina DO Active LISINOPRIL-HYDROCHLOROTHIAZIDE 20-12.5 MG TABS 1 tab by mouth da rocky LISINOPRIL-HYDROCHLOROTHIAZIDE 01721048565 No Longer Active Mitch luis DO Active LISINOPRIL 20 MG TABS 1 tab po at HS LISINOPRIL 77085620093 No Longer Active Mitch Urbina DO Active COUMADIN 5 MG TABS 1 by mouth every other day WARFARIN SODIUM 17861380878 No Longer Active Mitch Urbina DO Active COUMADIN 6 MG TABS 1 by mouth every other day WARFARIN SODIUM 89807971483 No Longer Active Mitch Urbina DO Active COLCRYS 0.6 MG TABS 1 tab qid prn gout COLCHICINE 13762973120 Active Corey SEGURA Active SIMVASTATIN 40 MG TABS 1 tab daily at bedtime S IMVASTATIN 60778486324 Active Mitch Urbina DO Active SIMVASTATIN 20 MG TABS 1 tab daily at bedtime S IMVASTATIN 46599979925 No Longer Active Mitch Urbina DO Active LOVENOX 100 MG/ML SC SOLN One injection twice a day 09/15/15 ENOXAPARIN SODIUM 45530134678 No Longer Active Carmine D [place] MD A ctive JANUVIA 50 MG TABS Take one by mouth daily DIEGO GLIPTIN PHOSPHATE 25936227587 Active Mitch Urbina DO Active JANUVIA 100 MG TABS 1/2 by mouth every day DIEGO GLIPTIN PHOSPHATE 60348811520 No Longer Active Bijalseth Segal RN Active METFORMIN HCL 500 MG TABS 2 by mouth twice daily METFORMIN HCL 91127538800 Active Corey Arias PA Active GLIMEPIRIDE 4 MG TABS 1 tab po bid GLIMEPIRIDE 926155 78119 Active Mitch Urbina DO Active COLCRYS 0.6 MG TABS 1 po q 6 hours prn gout pain 03/02 COLCHICINE 83935438571 No Longer Active Camila Reese Active LISINOPRIL 5 MG TABS 1 by mouth every day LISIN OPRIL 54321020712 No Longer Active Nguyen Perez Active KLOR-CON 20 MEQ PACK Take one by mouth daily 8 POTASSIUM CHLORIDE 21891006279 No Longer Active Nguyen Perez Active FUROSEMIDE 40 MG TABS 1 by mouth daily FUROSEMI DE 76966577560 No Longer Active Nguyen Perez Active PROVIGIL 200 MG TABS 1/2 tab po q day MODAFINIL 51311 834855 Active Mitch Urbina DO Active PROVIGIL 100 MG TABS Take one by mouth daily MO DAFINIL 31942127629 No Longer Active Mitch Urbina DO Active BACTRIM DS 800-160 MG TAB 1 tab by mouth twice daily 2 TRIMETHOPRIM-SULFAMETHOXAZOLE 79583751275 No Longer Active Renan Hays MD Active FAMOTIDINE 20 MG TABS by mouth twice a day FAMOTI DINE 93796553049 Active Mitch Urbina DO Active ADULT ASPIRIN LOW STRENGTH 81 MG TBDP 1 by mouth every daily ASPIRIN 32430160375 Active Mitch Urbina DO Active METOPROLOL TARTRATE 50 MG TABS 1 by mouth twice daily METOPROLOL TARTRATE 96650785975 Active Curly Coker MD Active BACTRIM DS 800-160 MG TAB 1 tab by mouth twice daily 2 BACTRIM DS 800-160 MG TAB TRIMETHOPRIM-SULFAMETHOXAZOLE Inac tive PROVIGIL 100 MG TABS Take one by mouth daily 4 PROVIGIL 100 MG TABS 733267 MODAFINIL Inactive FUROSEMIDE 40 MG TABS 1 by mouth daily FU ROSEMIDE 40 MG TABS 449200 FUROSEMIDE Inactive KLOR-CON 20 MEQ PACK Take one by mouth daily 8 KLOR-CON 20 MEQ PACK 039827 POTASSIUM CHLORIDE Inactive LISINOPRIL 5 MG TABS 1 by mouth every day LISINOPRIL 5 MG TABS 324338 LISINOPRIL Inactive COLCRYS 0.6 MG TABS 1 po q 6 hours prn gout pain 03/02 COLCRYS 0.6 MG TABS 794123 COLCHICINE Inactive JANUVIA 100 MG TABS 1/2 by mouth every day JANUVI A 100 MG TABS SITAGLIPTIN PHOSPHATE Inactive SIMVASTATIN 20 MG TABS 1 tab daily at bedtime SIMVASTATIN 20 MG TABS 441728 SIMVASTATIN Inactive COUMADIN 6 MG TABS 1 by mouth every other day COUMADIN 6 MG TABS 438629 WARFARIN SODIUM Inactive COUMADIN 5 MG TABS 1 by mouth every other day COUMADIN 5 MG TABS 782800 WARFARIN SODIUM Inactive LISINOPRIL 20 MG TABS 1 tab po at HS KOKI NOPRIL 20 MG TABS 622538 LISINOPRIL Inactive LISINOPRIL-HYDROCHLOROTHIAZIDE 20-12.5 MG TABS 1 tab by mouth da rocky LISINOPRIL-HYDROCHLOROTHIAZIDE 20-12.5 MG TABS 530599 LISINOPRIL-HYDROCHLOROTHIAZIDE Inactive POLYTRIM 25192-4.1 UNIT/ML-% SOLN 1 drop in affected e ye every 3 hours while awake x 7 days POLYTRIM 01086-4.1 UNIT/ML-% SOLN 06064 7 POLYMYXIN B-TRIMETHOPRIM Inactive COUMADIN 4 MG TABS 1 tablet daily COUMADIN 4 MG TABS 838247 WARFARIN SODIUM Inactive CLONIDINE HCL 0.1 MG TABS 1 po bid 7 days, then 1/2 tab po b id 7 days CLONIDINE HCL 0.1 MG TABS 981937 CLONIDINE HCL I nactive ALLOPURINOL 300 MG TABS Take 1 tablet by mouth daily 2 ALLOPURINOL 300 MG TABS 071131 ALLOPURINOL Inactive MECLIZINE HCL 25 MG TAB 1 po tid 3 days, then 1/2 tab tid 3 days MECLIZINE HCL 25 MG TAB 561803 MECLIZINE HCL Inactive LOVENOX 100 MG/ML SC SOLN One injection twice a day 09/15/15 LOVENOX 100 MG/ML SC SOLN 537354 ENOXAPARIN SODIUM Inactive Vital Signs Date Name Value Unit Range Description blood pressure, diastolic - 8462-4 75 mm[Hg] [...] Acid - Chemistry sodium, serum 136 mmol/L 766-767 5359/07/25 potassium, serum 4.6 mmol/L 3.5-5.2 chloride, serum [...] Lab microalbumin, urine 30 0-19 Lab Report: CBC, Comp. Metabolic Panel, Prostatic Specific Ag - Chemistry sodium, serum 141 mmol/L 357-634 1244/07/06 potassium, serum 4.4 mmol/L 3.5-5.2 chloride, serum [...] Panel - Chemistry sodium, serum 137 mmol/L 980-928 3707/11/14 potassium, serum 4.4 mmol/L 3.5-5.2 chloride, serum [...] 8.0 % 4.3-6.0 cholesterol, serum 130 mg/dL 213-753 8928/11/14 triglyceride, serum, fasting 288 mg/dL 30-200 HDL cholesterol, serum 33 mg/dL 32-96 LDL cholesterol, serum 39 mg/dL 0-130 Lab Report: Comp. Metabolic Panel, HGBA1 C, Lipid Panel, Prothrombin Time - Chemistry HDL cholesterol, serum 30 mg/dL 32-96 LDL cholesterol, serum 42 mg/dL 0-130 sodium, serum 136 mmol/L 211-133 3578/12/02 potassium, serum 4.4 mmol/L 3.5-5.2 chloride, serum [...] 7.6 % 4.3-6.0 cholesterol, serum 117 mg/dL 154-761 4286/12/02 triglyceride, serum, fasting 226 mg/dL 30-200 Lab Report: Comp. Metabolic Panel, HGBA1 C, [...] 7.0 % 4.3-6.0 cholesterol, serum 120 mg/dL 445-836 0312/07/06 triglyceride, serum, fasting 186 mg/dL 30-200 HDL cholesterol, serum 34 mg/dL 32-96 LDL cholesterol, serum 49 mg/dL 0-130 Lab Report: Prothrombin Time - Coagulati on prothrombin time (patient) 18.4 SECS s 11.1-13.4 international normalized ratio (INR) 2.2 1.0-3.5 prothrombin time (patient) 18.6 SECS s 11.1-13.4 international normalized ratio (INR) 2.2 1.0-3.5 prothrombin time (patient) 20.1 SECS s 11.1-13.4 international normalized ratio (INR) 2.6 1.0-3.5 prothrombin time (patient) 18.6 SECS s 11.1-13.4 international normalized ratio (INR) 2.3 1.0-3.5 international normalized ratio (INR) 1.7 1.0-3.5 prothrombin time (patient) 16.0 SECS s 11.1-13.4 prothrombin time (patient) 19.9 SECS s 11.1-13.4 international normalized ratio (INR) 2.6 1.0-3.5 Encounters Code Encounter Date Provider Facility CPT-99275 Level 3 Est. Patient 09:37:15 CDT Mitch luis [facility] CPT-17306 Level 3 Est. Patient 17:01:00 PHILOSOPHY FACULTY Mitch luis [facility] CPT-18513 Level 3 Est. Patient 13:53:19 PHILOSOPHY FACULTY Mitch luis [facility] CPT-47857 Level 3 Est. Patient 19:19:37 PHILOSOPHY FACULTY Mitch luis [facility] CPT-71788 Level 3 Est. Patient 13:25:53 PHILOSOPHY FACULTY Tavo toure MD [facility] CPT-22230 Level 3 Est. Patient 18:17:28 CDT Mitch Arnol L janelle [facility] CPT-43760 Level 3 Est. Patient 15:22:57 CDT Mitch Arnol luis [facility] CPT-21166 Level 3 Est. Patient 18:21:50 CDT Mitch luis [facility] CPT-46951 Level 3 Est. Patient 18:20:38 CDT Mitch luis [facility] CPT-85200 Level 3 Est. Patient 15:37:55 CDT Mitch Arnol luis [facility] CPT-36111 Level 2 Est. Patient 15:54:44 CDT Carmine benton MD [facility]-33069 Level 3 Est. Patient 21:46:01 PHILOSOPHY FACULTY Mitch luis [facility] CPT-79192 Level 3 Est. Patient 22:15:50 CDT Mitch luis [facility] CPT-86739 Level 3 Est. Patient 10:48:15 CDT Mitch W L janelle [facility] CPT-05809 Level 3 Est. Patient 23:20:57 CDT Tavo toure MD [facility] CPT-55348 Level 3 Est. Patient 16:26:13 CDT Mitch luis [facility] Procedures Code Procedure Name Date Entry Date Standard Desc ription CPT-98456 Venipuncture Draw Fee 10:13:28 PHILOSOPHY FACULTY CPT-75840 Venipuncture Draw Fee 08:31:11 CDT CPT-35517 Aspir/Inject Med Joint 18:17:28 CDT CPT-64782 Venipuncture Draw Fee 10:13:30 CDT CPT-78440 Venipuncture Draw Fee 08:31:43 PHILOSOPHY FACULTY CPT-JTINJ Joint Injection 18:34:50 CDT CPT-49857 Knee 3V 12:25:09 CDT CPT-74712 Venipuncture Draw Fee 12:15:57 CDT CPT-060 Medical Surveillance Exam 21:31:43 CDT 2011 CPT-55261 Venipuncture Draw Fee 08:32:05 PHILOSOPHY FACULTY CPT-OV Office Visit 18:19:06 CDT
--- OUTSIDE RECORDS SUMMARY | 2020-01-18 12:07 | XMS REPORT | Clinical Summary ---
Author Author Admin, Mitch Leon Organization [facility] Address Unknown Phone Unavailable Allergies, Adverse Reactions, [...] Coronary atherosclerosis of unspecified type of vessel, [place] or graft EDEMA 782.3 Resolved Mitch Urbina [...] for 1 week, then once daily FLUTICASONE NC OPIONATE 95385593959 Active Becky Sell ELIGIBILITY CONSULTANT Active PREDNISONE 20 MG ORAL TABLET 2 tabs daily for 3 days 1 tab d aily for 3 days PREDNISONE 02547547698 No Longer Active Becky Sell ELIGIBILITY CONSULTANT Active MINOXIDIL 2.5 MG ORAL TABLET 1 tablet twice daily for high b lood pressure MINOXIDIL 36048837197 Active Mitch Urbina DO Ac tive METFORMIN HCL ER 500 MG ORAL TABLET EXTENDED RELEASE 2 4 HOUR 2 tablets by mouth twice daily METFORMIN HCL 53406326255 Active Mitch Urbina DO Active GLIMEPIRIDE 4 MG ORAL TABLET 1 tablet by mouth twice daily f or diabetes GLIMEPIRIDE 94243661755 Active Mitch Urbina DO Active GLIMEPIRIDE 2 MG ORAL TABLET 1 po BID GLIMEPI RIDE 97807421185 No Longer Active Mitch Urbina DO Active AMLODIPINE BESYLATE 5 MG ORAL TABLET 1 tablet by mouth daily AMLODIPINE BESYLATE 50487907005 Active Mitch Urbina DO Active PROVIGIL 200 MG ORAL TABLET 1/2 tab po q day MODA FINIL 65460681561 Active Renee Oconnor LPN Active FAMOTIDINE 20 MG ORAL TABLET by mouth twice a day 2017 FAMOTIDINE 73383308596 No Longer Active Mitch Urbina DO Active COLCRYS 0.6 MG ORAL TABLET 1 tab qid prn gout C OLCHICINE 91824031216 No Longer Active Mitch Urbina DO Active KEFLEX 500 MG ORAL CAPSULE 1 po qid CEPHALEXI N 93941602911 No Longer Active Mitch Urbina DO Active LOSARTAN POTASSIUM 100 MG ORAL TABLET 1 pill by mouth daily, for blood pressure LOSARTAN POTASSIUM 00840171367 Active Ana Ocampo Active AMLODIPINE BESYLATE 5 MG ORAL TABLET 1 tablet by mouth daily 201 01/20/04 AMLODIPINE BESYLATE 40452760820 No Longer Active Joe fulton APRN Active MITIGARE 0.6 MG ORAL CAPSULE 2 capsules at onset of go ut pain, then take one capsule at 1 hour if symptoms persist. COLCHICINE 59 636370317 Active Mitch Urbina DO Active COUMADIN 1 MG ORAL TABLET 2 tabs orally daily with the 5mg tab to equal 7mg daily WARFARIN SODIUM 07575957517 Active Maria Briones Active INVOKANA 100 MG ORAL TABLET 1 tablet orally daily CANAGLIFLOZIN 21951906152 Active Mitch Urbina DO Active MECLIZINE HCL 25 MG ORAL TABLET 1 po tid 3 days, then 1/2 ta b tid 3 days MECLIZINE HCL 51350974998 No Longer Active Corey SEGURA Active ALLOPURINOL 300 MG ORAL TABLET Take 1 tablet by mouth daily 2012 ALLOPURINOL 02500657432 No Longer Active Corey SEGURA Active CLONIDINE HCL 0.1 MG ORAL TABLET 1 po bid 7 days, then 1/2 t ab po bid 7 days CLONIDINE HCL 15883971040 No Longer Active Corey SEGURA Active COUMADIN 5 MG ORAL TABLET 1 tab PO daily WARFAR IN SODIUM 39533066457 Active Renee Oconnor LPN Active COUMADIN 4 MG ORAL TABLET 1 tablet daily WARFAR IN SODIUM 46950271180 No Longer Active Corey SEGURA Active POLYTRIM 30745-7.1 UNIT/ML-% OPHTHALMIC SOLUTION 1 rui p in affected eye every 3 hours while awake x 7 days POLYMYXIN B-TRIMETHOP RIM 18699068633 No Longer Active Corey SEGURA Active LOSARTAN POTASSIUM-HCTZ 100-12.5 MG ORAL TABLET 1 by m outh daily for high blood pressure LOSARTAN POTASSIUM-HCTZ 46579815160 No Longer A ctive Mitch Urbina DO Active LISINOPRIL-HYDROCHLOROTHIAZIDE 20-12.5 MG ORAL TABLET 1 tab by m outh daily LISINOPRIL-HYDROCHLOROTHIAZIDE 84827318758 No Longer Active Mitch Urbina DO Active LISINOPRIL 20 MG ORAL TABLET 1 tab po at HS LIS INOPRIL 12813025927 No Longer Active Mitch Urbina DO Active COUMADIN 5 MG ORAL TABLET 1 by mouth every other day 2 WARFARIN SODIUM 09763083713 No Longer Active Mitch Urbina DO Active COUMADIN 6 MG ORAL TABLET 1 by mouth every other day 2 WARFARIN SODIUM 44024199833 No Longer Active Mitch Urbina DO Active SIMVASTATIN 40 MG ORAL TABLET 1 tab daily at bedtime SIMVASTATIN 94395333573 Active Maria Rivas RN Active SIMVASTATIN 20 MG ORAL TABLET 1 tab daily at bedtime 2 SIMVASTATIN 81879403159 No Longer Active Mitch Urbina DO Active LOVENOX 100 MG/ML SUBCUTANEOUS SOLUTION One injection twice a da y ENOXAPARIN SODIUM 96596207105 No Longer Active Carmine Yusuf MD Active JANUVIA 50 MG ORAL TABLET Take one by mouth daily SITAGLIPTIN PHOSPHATE 28903853045 Active Renee Oconnor LPN Active JANUVIA 100 MG ORAL TABLET 1/2 by mouth every day 2011 SITAGLIPTIN PHOSPHATE 14721470168 No Longer Active Bijal Segal RN Acti ve METFORMIN HCL 500 MG ORAL TABLET 2 by mouth twice daily METFORMIN HCL 82846574062 No Longer Active Renee Oconnor LPN Active COLCRYS 0.6 MG ORAL TABLET 1 po q 6 hours prn gout pain COLCHICINE 01735025214 No Longer Active Camila Reese Active LISINOPRIL 5 MG ORAL TABLET 1 by mouth every day 11/17 LISINOPRIL 83013231750 No Longer Active Nguyen Ana Active KLOR-CON 20 MEQ ORAL PACKET Take one by mouth daily 09/10/08 POTASSIUM CHLORIDE 83979587435 No Longer Active Nguyen Ana Active FUROSEMIDE 40 MG ORAL TABLET 1 by mouth daily F UROSEMIDE 64090593960 No Longer Active Nguyen Ana Active PROVIGIL 100 MG ORAL TABLET Take one by mouth daily 08/20/04 MODAFINIL 70996143595 No Longer Active Mitch Urbina DO Active BACTRIM DS 800-160 MG ORAL TABLET 1 tab by mouth twice daily 201 10/19/09 TRIMETHOPRIM-SULFAMETHOXAZOLE 70240359658 No Longer Active Elian Hays MD Active ADULT ASPIRIN LOW STRENGTH 81 MG ORAL TABLET DISINTEGR ATING 1 by mouth every daily ASPIRIN 03029753455 Active Mitch Urbina DO Ac tive METOPROLOL TARTRATE 50 MG ORAL TABLET 1 by mouth twice daily METOPROLOL TARTRATE 73737670981 Active Maria Rivas RN Ac tive BACTRIM DS 800-160 MG ORAL TABLET 1 tab by mouth twice daily 201 10/19/09 BACTRIM DS 800-160 MG ORAL TABLET 894798 TRIMETHOPRIM-SULFAMETHOXAZOLE Inactive PROVIGIL 100 MG ORAL TABLET Take one by mouth daily 08/20/04 PROVIGIL 100 MG ORAL TABLET 100990 MODAFINIL Inactive FUROSEMIDE 40 MG ORAL TABLET 1 by mouth daily FUROSEMIDE 40 MG ORAL TABLET 203054 FUROSEMIDE Inactive KLOR-CON 20 MEQ ORAL PACKET Take one by mouth daily 09/10/08 KLOR- CON 20 MEQ ORAL PACKET 3990250 POTASSIUM CHLORIDE Inactive LISINOPRIL 5 MG ORAL TABLET 1 by mouth every day 11/17 LISINOPRIL 5 MG ORAL TABLET 757631 LISINOPRIL Inactive COLCRYS 0.6 MG ORAL TABLET 1 po q 6 hours prn gout pain COLCRYS 0.6 MG ORAL TABLET 893081 COLCHICINE Inactive JANUVIA 100 MG ORAL TABLET 1/2 by mouth every day 2011 JANUVIA 100 MG ORAL TABLET SITAGLIPTIN PHOSPHATE Inactive SIMVASTATIN 20 MG ORAL TABLET 1 tab daily at bedtime 2 SIMVASTATIN 20 MG ORAL TABLET 091595 SIMVASTATIN Inactive COUMADIN 6 MG ORAL TABLET 1 by mouth every other day 2 COUMADIN 6 MG ORAL TABLET 751555 WARFARIN SODIUM Inactive COUMADIN 5 MG ORAL TABLET 1 by mouth every other day 2 COUMADIN 5 MG ORAL TABLET 274616 WARFARIN SODIUM Inactive LISINOPRIL 20 MG ORAL TABLET 1 tab po at HS LISINOPRIL 20 MG ORAL TABLET 842279 LISINOPRIL Inactive LISINOPRIL-HYDROCHLOROTHIAZIDE 20-12.5 MG ORAL TABLET 1 tab by m outh daily LISINOPRIL-HYDROCHLOROTHIAZIDE 20-12.5 MG ORAL TABLET 042372 LISINOPRIL-HYDROCHLOROTHIAZIDE Inactive POLYTRIM 43996-9.1 UNIT/ML-% OPHTHALMIC SOLUTION 1 rui p in affected eye every 3 hours while awake x 7 days POLYTRIM 1000 0-0.1 UNIT/ML-% OPHTHALMIC SOLUTION 206262 POLYMYXIN B-TRIMETHOPRIM Inactive COUMADIN 4 MG ORAL TABLET 1 tablet daily COUMADIN 4 MG ORAL TABLET 008645 WARFARIN SODIUM Inactive CLONIDINE HCL 0.1 MG ORAL TABLET 1 po bid 7 days, then 1/2 t ab po bid 7 days CLONIDINE HCL 0.1 MG ORAL TABLET 643297 CLONIDIN E HCL Inactive ALLOPURINOL 300 MG ORAL TABLET Take 1 tablet by mouth daily 2012 ALLOPURINOL 300 MG ORAL TABLET 513562 ALLOPURINOL I nactive MECLIZINE HCL 25 MG ORAL TABLET 1 po tid 3 days, then 1/2 ta b tid 3 days MECLIZINE HCL 25 MG ORAL TABLET 955568 MECLIZINE HCL Inactive AMLODIPINE BESYLATE 5 MG ORAL TABLET 1 tablet by mouth daily 201 01/20/04 AMLODIPINE BESYLATE 5 MG ORAL TABLET 517576 AMLODIPINE BESYLATE Inactive KEFLEX 500 MG ORAL CAPSULE 1 po qid K EFLEX 500 MG ORAL CAPSULE 877400 CEPHALEXIN Inactive COLCRYS 0.6 MG ORAL TABLET 1 tab qid prn gout COLCRYS 0.6 MG ORAL TABLET 181456 COLCHICINE Inactive FAMOTIDINE 20 MG ORAL TABLET by mouth twice a day 2017 FAMOTIDINE 20 MG ORAL TABLET 648970 FAMOTIDINE Inactive GLIMEPIRIDE 2 MG ORAL TABLET 1 po BID GLIMEPIRIDE 2 MG ORAL TABLET 353334 GLIMEPIRIDE Inactive LOVENOX 100 MG/ML SUBCUTANEOUS SOLUTION One injection twice a da y LOVENOX 100 MG/ML SUBCUTANEOUS SOLUTION 950040 ENOXAPAR IN SODIUM Inactive PREDNISONE 20 MG ORAL TABLET 2 tabs daily for 3 days 1 tab d aily for 3 days PREDNISONE 20 MG ORAL TABLET 967008 PREDNISONE Inactive Advance Directives Directive Description Start [...] mg/dL Encounters Code Encounter Date Provider Facility CPT-20162 Level 3 Est. Patient 15:18:36 CDT Beckysa Se anderson [facility] CPT-93080 [id number] Vst-Est Level IV 10:06:35 CDT Stephy ce Arnol [facility] CPT-51997 [id number] Vst-Est Level IV 10:52:00 SWEET POTATO DISINTEGRATOR Stephy Ambrose [facility] CPT-15097 Level 3 Est. Patient 18:25:53 CDT Mitch luis [facility] CPT-45671 Level 3 Est. Patient 19:43:34 CDT Mitch luis [facility] CPT-73147 Level 4 Est. Patient 09:30:18 CDT Mitch luis [facility] CPT-73037 Level 3 Est. Patient 15:10:14 CDT Joe kamara [facility] CPT-24399 Level 3 Est. Patient 15:03:46 CDT Joe kamara [facility] CPT-96183 Level 3 Est. Patient 14:21:06 CDT Mitch luis [facility] CPT-19514 Level 3 Est. Patient 14:52:06 CDT Joe kamara [facility] CPT-76085 Level 3 Est. Patient 09:34:30 SWEET POTATO DISINTEGRATOR Mitch luis [facility] CPT-41123 Level 3 Est. Patient 09:37:15 CDT Mitch luis [facility] CPT-06581 Level 3 Est. Patient 17:01:00 SWEET POTATO DISINTEGRATOR Mitch luis [facility] CPT-49787 Level 3 Est. Patient 13:53:19 SWEET POTATO DISINTEGRATOR Mitch luis [facility] CPT-20893 Level 3 Est. Patient 19:19:37 SWEET POTATO DISINTEGRATOR Mitch luis [facility] CPT-77605 Level 3 Est. Patient 13:25:53 SWEET POTATO DISINTEGRATOR Tavo toure MD [facility] CPT-23578 Level 3 Est. Patient 18:17:28 CDT Mitch luis [facility] CPT-52308 Level 3 Est. Patient 15:22:57 CDT Mitch luis [facility] CPT-28427 Level 3 Est. Patient 18:21:50 CDT Mitch luis [facility] CPT-43838 Level 3 Est. Patient 18:20:38 CDT Mitch luis [facility] CPT-98262 Level 3 Est. Patient 15:37:55 CDT Mitch luis [facility] CPT-27637 Level 2 Est. Patient 15:54:44 CDT Carmine benton MD [facility]-90463 Level 3 Est. Patient 21:46:01 SWEET POTATO DISINTEGRATOR Mitch luis [facility] CPT-54131 Level 3 Est. Patient 22:15:50 CDT Mitch luis [facility] CPT-84555 Level 3 Est. Patient 10:48:15 CDT Mitch luis [facility] CPT-35812 Level 3 Est. Patient 23:20:57 CDT Tavo toure MD [facility] CPT-49893 Level 3 Est. Patient 16:26:13 CDT Mitch luis [facility] Procedures Code Procedure Name Date Entry Date Standard Desc ription CPT-49067 Venipuncture Draw Fee 14:56:20 CDT CPT-JTINJ Asp/Joint Injection 18:47:02 CDT CPT-61755 Venipuncture Draw Fee 09:26:17 CDT CPT-36301 PT/INR - LAB USE ONLY 13:32:49 SWEET POTATO DISINTEGRATOR CPT-50810 Venipuncture Draw Fee 13:32:49 SWEET POTATO DISINTEGRATOR CPT-66489 PT/INR - LAB USE ONLY 10:34:49 SWEET POTATO DISINTEGRATOR CPT-11196 Venipuncture Draw Fee 10:34:48 SWEET POTATO DISINTEGRATOR CPT-40839 PT/INR - LAB USE ONLY 09:22:03 SWEET POTATO DISINTEGRATOR CPT-82424 Venipuncture Draw Fee 09:22:02 SWEET POTATO DISINTEGRATOR CPT-18789 Hemoccult IFOBT - LAB USE ONLY 10:27:22 CDT CPT-04648 Venipuncture Draw Fee 08:27:08 CDT CPT-59580 Liver Profile - LAB USE ONLY 08:27:07 CDT 2 CPT-69159 Microalbumin - LAB USE ONLY 08:27:07 CDT 20 25/05/09 CPT-67929 PT/INR - LAB USE ONLY 08:27:07 CDT CPT-15121 HGBA1C - LAB USE ONLY 08:27:07 CDT CPT-54718 CBC - LAB USE ONLY 08:27:07 CDT CPT-56345 Venipuncture Draw Fee 11:09:14 CDT CPT-50038 Venipuncture Draw Fee 08:32:21 SWEET POTATO DISINTEGRATOR CPT-57457 Venipuncture Draw Fee 09:38:56 SWEET POTATO DISINTEGRATOR CPT-61817 No Charge Offi Visit 21:36:07 CDT 1 CPT-23672 Venipuncture Draw Fee 10:13:28 SWEET POTATO DISINTEGRATOR CPT-39843 Venipuncture Draw Fee 08:31:11 CDT CPT-71757 Aspir/Inject Med Joint 18:17:28 CDT CPT-51543 Venipuncture Draw Fee 10:13:30 CDT CPT-89804 Venipuncture Draw Fee 08:31:43 SWEET POTATO DISINTEGRATOR CPT-JTINJ Joint Injection 18:34:50 CDT CPT-65336 Knee 3V 12:25:09 CDT CPT-10614 Venipuncture Draw Fee 12:15:57 CDT CPT-060 Medical Surveillance Exam 21:31:43 CDT 2011 CPT-44028 Venipuncture Draw Fee 08:32:05 SWEET POTATO DISINTEGRATOR CPT-OV Office Visit 18:19:06 CDT
--- OUTSIDE RECORDS SUMMARY | 2020-01-18 12:08 | XMS REPORT | Clinical Summary ---
Author Author Admin, Mitch Leon Organization [facility] Address Unknown Phone Unavailable Allergies, [...] Coronary atherosclerosis of unspecified type of vessel, [place] or graft EDEMA 782.3 Resolved Mitch Urbina [...] 1 tablet by mouth daily AMLODIPINE BESYLATE 75225783171 No Longer Active Joe Williamson APRN Active MITIGARE 0.6 MG ORAL CAPS 2 capsules at onset of gout pain, then take one capsule at 1 hour if symptoms persist. COLCHICINE 59 380922023 Active Mitch Urbina DO Active COUMADIN 1 MG TAB 2 tabs orally daily with the 5mg tab to equal 7mg daily WARFARIN SODIUM 96239009871 Active Mitch Urbina DO Active COLCRYS 0.6 MG TABS 1 tab qid prn gout COLCHICINE 85270037828 Active Norma Cazares Active INVOKANA 100 MG ORAL TABS 1 tablet orally daily CANAGLIFLOZIN 89834320463 Active Brenda Shen Active MINOXIDIL 2.5 MG TABS 1 tablet daily for high blood pressure 10/23 MINOXIDIL 48178652175 Active Ana Wallace Active MECLIZINE HCL 25 MG TAB 1 po tid 3 days, then 1/2 tab tid 3 days MECLIZINE HCL 40272923297 No Longer Active Corey SEGURA Active ALLOPURINOL 300 MG TABS Take 1 tablet by mouth daily 2 ALLOPURINOL 54743136173 No Longer Active Corey SEGURA Activ e CLONIDINE HCL 0.1 MG TABS 1 po bid 7 days, then 1/2 tab po b id 7 days CLONIDINE HCL 04902702425 No Longer Active Corey SEGURA Active COUMADIN 5 MG TABS 1 tab PO daily WARFARIN SODIUM 26466693199 Active Mitch Urbina DO Active COUMADIN 4 MG TABS 1 tablet daily WARFARIN SODI UM 48688163877 No Longer Active Corey SEGURA Active POLYTRIM 89541-6.1 UNIT/ML-% SOLN 1 drop in affected e ye every 3 hours while awake x 7 days POLYMYXIN B-TRIMETHOPRIM 22292530555 N o Longer Active Corey SEGURA Active LOSARTAN POTASSIUM-HCTZ 100-12.5 MG TABS 1 by mouth da [place] for high blood pressure LOSARTAN POTASSIUM-HCTZ 98096217948 Active Stephy Urbina DO Active LISINOPRIL-HYDROCHLOROTHIAZIDE 20-12.5 MG TABS 1 tab by mouth da rocky LISINOPRIL-HYDROCHLOROTHIAZIDE 08541138480 No Longer Active Mitch luis DO Active LISINOPRIL 20 MG TABS 1 tab po at HS LISINOPRIL 48932542174 No Longer Active Mitch Urbina DO Active COUMADIN 5 MG TABS 1 by mouth every other day WARFARIN SODIUM 01855740677 No Longer Active Mitch Urbina DO Active COUMADIN 6 MG TABS 1 by mouth every other day WARFARIN SODIUM 36920600070 No Longer Active Mitch Urbina DO Active SIMVASTATIN 40 MG TABS 1 tab daily at bedtime S IMVASTATIN 07167345685 Active Mitch Urbina DO Active SIMVASTATIN 20 MG TABS 1 tab daily at bedtime S IMVASTATIN 28260129210 No Longer Active Mitch Urbina DO Active LOVENOX 100 MG/ML SC SOLN One injection twice a day 09/15/15 ENOXAPARIN SODIUM 31849905139 No Longer Active Carmine Navarrete ctive JANUVIA 50 MG TABS Take one by mouth daily DIEGO GLIPTIN PHOSPHATE 48052330445 Active Mitch Urbina DO Active JANUVIA 100 MG TABS 1/2 by mouth every day DIEGO GLIPTIN PHOSPHATE 06603369870 No Longer Active Bijal Segal RN Active METFORMIN HCL 500 MG TABS 2 by mouth twice daily METFORMIN HCL 66877468254 Active Mitch Urbina DO Active GLIMEPIRIDE 4 MG TABS 1 tab po bid GLIMEPIRIDE 319393 30112 Active Mitch Urbina DO Active COLCRYS 0.6 MG TABS 1 po q 6 hours prn gout pain 03/02 COLCHICINE 98555332004 No Longer Active Camila Reese Active LISINOPRIL 5 MG TABS 1 by mouth every day LISIN OPRIL 32461509441 No Longer Active Nguyen Perez Active KLOR-CON 20 MEQ PACK Take one by mouth daily 8 POTASSIUM CHLORIDE 87631837754 No Longer Active Nguyen Perez Active FUROSEMIDE 40 MG TABS 1 by mouth daily FUROSEMI DE 12175798930 No Longer Active Nguyen Perez Active PROVIGIL 200 MG TABS 1/2 tab po q day MODAFINIL 80226 264958 Active Kathie Jaun RPT,RMA Active PROVIGIL 100 MG TABS Take one by mouth daily MO DAFINIL 65357110703 No Longer Active Mitch Urbina DO Active BACTRIM DS 800-160 MG TAB 1 tab by mouth twice daily 2 TRIMETHOPRIM-SULFAMETHOXAZOLE 96715361057 No Longer Active Renan Hays MD Active FAMOTIDINE 20 MG TABS by mouth twice a day FAMOTI DINE 63595566381 Active Mitch Urbina DO Active ADULT ASPIRIN LOW STRENGTH 81 MG TBDP 1 by mouth every daily ASPIRIN 61994699611 Active Mitch Urbina DO Active METOPROLOL TARTRATE 50 MG TABS 1 by mouth twice daily METOPROLOL TARTRATE 86880398029 Active Mitch Urbina DO Active BACTRIM DS 800-160 MG TAB 1 tab by mouth twice daily 2 BACTRIM DS 800-160 MG TAB 318513 TRIMETHOPRIM-SULFAMETHOXAZOLE Inac tive PROVIGIL 100 MG TABS Take one by mouth daily 4 PROVIGIL 100 MG TABS 023252 MODAFINIL Inactive FUROSEMIDE 40 MG TABS 1 by mouth daily FU ROSEMIDE 40 MG TABS 913279 FUROSEMIDE Inactive KLOR-CON 20 MEQ PACK Take one by mouth daily 8 KLOR-CON 20 MEQ PACK 329960 POTASSIUM CHLORIDE Inactive LISINOPRIL 5 MG TABS 1 by mouth every day LISINOPRIL 5 MG TABS 264574 LISINOPRIL Inactive COLCRYS 0.6 MG TABS 1 po q 6 hours prn gout pain 03/02 COLCRYS 0.6 MG TABS 619265 COLCHICINE Inactive JANUVIA 100 MG TABS 1/2 by mouth every day JANUVI A 100 MG TABS SITAGLIPTIN PHOSPHATE Inactive SIMVASTATIN 20 MG TABS 1 tab daily at bedtime SIMVASTATIN 20 MG TABS 368370 SIMVASTATIN Inactive COUMADIN 6 MG TABS 1 by mouth every other day COUMADIN 6 MG TABS 481112 WARFARIN SODIUM Inactive COUMADIN 5 MG TABS 1 by mouth every other day COUMADIN 5 MG TABS 545624 WARFARIN SODIUM Inactive LISINOPRIL 20 MG TABS 1 tab po at HS KOKI NOPRIL 20 MG TABS 088601 LISINOPRIL Inactive LISINOPRIL-HYDROCHLOROTHIAZIDE 20-12.5 MG TABS 1 tab by mouth da rocky LISINOPRIL-HYDROCHLOROTHIAZIDE 20-12.5 MG TABS 441230 LISINOPRIL-HYDROCHLOROTHIAZIDE Inactive POLYTRIM 83464-5.1 UNIT/ML-% SOLN 1 drop in affected e ye every 3 hours while awake x 7 days POLYTRIM 71634-2.1 UNIT/ML-% SOLN 00893 7 POLYMYXIN B-TRIMETHOPRIM Inactive COUMADIN 4 MG TABS 1 tablet daily COUMADIN 4 MG TABS 859632 WARFARIN SODIUM Inactive CLONIDINE HCL 0.1 MG TABS 1 po bid 7 days, then 1/2 tab po b id 7 days CLONIDINE HCL 0.1 MG TABS 791510 CLONIDINE HCL I nactive ALLOPURINOL 300 MG TABS Take 1 tablet by mouth daily 2 ALLOPURINOL 300 MG TABS 645877 ALLOPURINOL Inactive MECLIZINE HCL 25 MG TAB 1 po tid 3 days, then 1/2 tab tid 3 days MECLIZINE HCL 25 MG TAB 034004 MECLIZINE HCL Inactive AMLODIPINE BESYLATE 5 MG TABS 1 tablet by mouth daily AMLODIPINE BESYLATE 5 MG TABS 239455 AMLODIPINE BESYLATE Inactive LOVENOX 100 MG/ML SC SOLN One injection twice a day 09/15/15 LOVENOX 100 MG/ML SC SOLN 104385 ENOXAPARIN SODIUM Inactive Vital Signs Date Name [...] Range Description Chart Maintenance: hemoccult added to [facility] - Chemistry occult blood, stool (E&M) Positive Lab Report: HGBA1C - Chemistry hemoglobin A1C, blood, as % of total hemoglobin 6.6 % 4.3-6.0 Lab Report: Lipid Panel, HEPATIC PANEL, MICROALB/CREAT W/RATIO, HGBA1C, CBC - Chemistry cholesterol, serum 136 mg/dL 474-203 4173/08/09 triglyceride, serum, fasting 187 mg/dL 30-200 HDL [...] 1.0-3.5 Encounters Code Encounter Date Provider Facility CPT-77594 Level 3 Est. Patient 15:10:14 CDT Joe kamara [facility] CPT-62641 Level 3 Est. Patient 15:03:46 CDT Joe kamara [facility] CPT-27579 Level 3 Est. Patient 14:21:06 CDT Mitch luis [facility] CPT-06703 Level 3 Est. Patient 14:52:06 CDT Joe kamara [facility] CPT-57219 Level 3 Est. Patient 09:34:30 FOCUSER Mitch luis [facility] CPT-11667 Level 3 Est. Patient 09:37:15 CDT Mitch luis [facility] CPT-44476 Level 3 Est. Patient 17:01:00 FOCUSER Mitch luis [facility] CPT-45242 Level 3 Est. Patient 13:53:19 FOCUSER Mitch luis [facility] CPT-44059 Level 3 Est. Patient 19:19:37 FOCUSER Mitch luis [facility] CPT-56251 Level 3 Est. Patient 13:25:53 FOCUSER Tavo toure MD [facility] CPT-72023 Level 3 Est. Patient 18:17:28 CDT Mitch Arnol L janelle [facility] CPT-22559 Level 3 Est. Patient 15:22:57 CDT Mitch W L janelle [facility] CPT-68270 Level 3 Est. Patient 18:21:50 CDT Mitch W L janelle [facility] CPT-98535 Level 3 Est. Patient 18:20:38 CDT Mitch W L janelle [facility] CPT-31532 Level 3 Est. Patient 15:37:55 CDT Mitch Arnol Nona janelle [facility] CPT-83497 Level 2 Est. Patient 15:54:44 CDT Carmine benton MD [facility] CPT-28286 Level 3 Est. Patient 21:46:01 FOCUSER Mitch luis [facility] CPT-00239 Level 3 Est. Patient 22:15:50 CDT Mitch Arnol luis [facility] CPT-85621 Level 3 Est. Patient 10:48:15 CDT Mitch luis [facility] CPT-89505 Level 3 Est. Patient 23:20:57 CDT Tavo toure MD [facility] CPT-52168 Level 3 Est. Patient 16:26:13 CDT Mitch luis [facility] Procedures Code Procedure Name Date Entry Date Standard Desc ription CPT-06180 PT/INR - LAB USE ONLY 13:32:49 FOCUSER CPT-33024 Venipuncture Draw Fee 13:32:49 FOCUSER CPT-08414 PT/INR - LAB USE ONLY 10:34:49 FOCUSER CPT-78445 Venipuncture Draw Fee 10:34:48 FOCUSER CPT-26507 PT/INR - LAB USE ONLY 09:22:03 FOCUSER CPT-92577 Venipuncture Draw Fee 09:22:02 FOCUSER CPT-43297 Hemoccult IFOBT - LAB USE ONLY 10:27:22 CDT CPT-64047 Venipuncture Draw Fee 08:27:08 CDT CPT-08004 Liver Profile - LAB USE ONLY 08:27:07 CDT 2 CPT-28230 Microalbumin - LAB USE ONLY 08:27:07 CDT 20 25/05/09 CPT-30537 PT/INR - LAB USE ONLY 08:27:07 CDT CPT-27101 HGBA1C - LAB USE ONLY 08:27:07 CDT CPT-87516 CBC - LAB USE ONLY 08:27:07 CDT CPT-99331 Venipuncture Draw Fee 11:09:14 CDT CPT-95162 Venipuncture Draw Fee 08:32:21 FOCUSER CPT-81088 Venipuncture Draw Fee 09:38:56 FOCUSER CPT-70946 No Charge Offi Visit 21:36:07 CDT 1 CPT-98810 Venipuncture Draw Fee 10:13:28 FOCUSER CPT-03466 Venipuncture Draw Fee 08:31:11 CDT CPT-52306 Aspir/Inject Med Joint 18:17:28 CDT CPT-17482 Venipuncture Draw Fee 10:13:30 CDT CPT-99900 Venipuncture Draw Fee 08:31:43 FOCUSER CPT-JTINJ Joint Injection 18:34:50 CDT CPT-51271 Knee 3V 12:25:09 CDT CPT-12654 Venipuncture Draw Fee 12:15:57 CDT CPT-060 Medical Surveillance Exam 21:31:43 CDT 2011 CPT-88660 Venipuncture Draw Fee 08:32:05 FOCUSER CPT-OV Office Visit 18:19:06 CDT
--- OUTSIDE RECORDS SUMMARY | 2020-01-18 12:08 | XMS REPORT | Clinical Summary ---
Author Author Admin, Mitch Leon Organization [facility] Address Unknown Phone Unavailable Allergies, Adverse [...] Coronary atherosclerosis of unspecified type of vessel, [place] or graft EDEMA 782.3 Resolved Mitch Urbina [...] 1 tablet by mouth daily AMLODIPINE BESYLATE 20226536482 No Longer Active Joe Williamson APRN Active MITIGARE 0.6 MG ORAL CAPS 2 capsules at onset of gout pain, then take one capsule at 1 hour if symptoms persist. COLCHICINE 59 727985431 Active Mitch Urbina DO Active COUMADIN 1 MG TAB 2 tabs orally daily with the 5mg tab to equal 7mg daily WARFARIN SODIUM 98051282150 Active Mitch Urbina DO Active COLCRYS 0.6 MG TABS 1 tab qid prn gout COLCHICINE 39614920734 Active Noram Sage Active INVOKANA 100 MG ORAL TABS 1 tablet orally daily CANAGLIFLOZIN 95934724364 Active Mitch Urbina DO Active MINOXIDIL 2.5 MG TABS 1 tablet daily for high blood pressure 10/23 MINOXIDIL 82780894946 Active Mitch Urbina DO Active MECLIZINE HCL 25 MG TAB 1 po tid 3 days, then 1/2 tab tid 3 days MECLIZINE HCL 97424775554 No Longer Active Corey SEGURA Active ALLOPURINOL 300 MG TABS Take 1 tablet by mouth daily 2 ALLOPURINOL 73751203266 No Longer Active Corey SEGURA Activ e CLONIDINE HCL 0.1 MG TABS 1 po bid 7 days, then 1/2 tab po b id 7 days CLONIDINE HCL 85637647871 No Longer Active Corey SEGURA Active COUMADIN 5 MG TABS 1 tab PO daily WARFARIN SODIUM 15383391904 Active Mitch Urbina DO Active COUMADIN 4 MG TABS 1 tablet daily WARFARIN SODI UM 35477164080 No Longer Active Corey SEGURA Active POLYTRIM 52856-1.1 UNIT/ML-% SOLN 1 drop in affected e ye every 3 hours while awake x 7 days POLYMYXIN B-TRIMETHOPRIM 88524207636 N o Longer Active Corey SEUGRA Active LOSARTAN POTASSIUM-HCTZ 100-12.5 MG TABS 1 by mouth da [place] for high blood pressure LOSARTAN POTASSIUM-HCTZ 15638078236 Active Stephy Urbina DO Active LISINOPRIL-HYDROCHLOROTHIAZIDE 20-12.5 MG TABS 1 tab by mouth da rocky LISINOPRIL-HYDROCHLOROTHIAZIDE 33642618932 No Longer Active Mitch luis DO Active LISINOPRIL 20 MG TABS 1 tab po at HS LISINOPRIL 76906846237 No Longer Active Mitch Urbina DO Active COUMADIN 5 MG TABS 1 by mouth every other day WARFARIN SODIUM 34901730680 No Longer Active Mitch Urbina DO Active COUMADIN 6 MG TABS 1 by mouth every other day WARFARIN SODIUM 38673651281 No Longer Active Mitch Urbina DO Active SIMVASTATIN 40 MG TABS 1 tab daily at bedtime S IMVASTATIN 22840472748 Active Mitch Urbina DO Active SIMVASTATIN 20 MG TABS 1 tab daily at bedtime S IMVASTATIN 63939462443 No Longer Active Mitch Urbina DO Active LOVENOX 100 MG/ML SC SOLN One injection twice a day 09/15/15 ENOXAPARIN SODIUM 25671557894 No Longer Active Carmine Navarrete ctive JANUVIA 50 MG TABS Take one by mouth daily DIEGO GLIPTIN PHOSPHATE 53669908930 Active Mitch Urbina DO Active JANUVIA 100 MG TABS 1/2 by mouth every day DIEGO GLIPTIN PHOSPHATE 14583041982 No Longer Active Bijal Segal RN Active METFORMIN HCL 500 MG TABS 2 by mouth twice daily METFORMIN HCL 24805997388 Active Mitch Urbina DO Active GLIMEPIRIDE 4 MG TABS 1 tab po bid GLIMEPIRIDE 420953 51530 Active Mitch Urbina DO Active COLCRYS 0.6 MG TABS 1 po q 6 hours prn gout pain 03/02 COLCHICINE 05834122573 No Longer Active Camila Reese Active LISINOPRIL 5 MG TABS 1 by mouth every day LISIN OPRIL 63099749616 No Longer Active Nguyen Perez Active KLOR-CON 20 MEQ PACK Take one by mouth daily 8 POTASSIUM CHLORIDE 95168759785 No Longer Active Nguyen Perez Active FUROSEMIDE 40 MG TABS 1 by mouth daily FUROSEMI DE 18740687862 No Longer Active Nguyen Perez Active PROVIGIL 200 MG TABS 1/2 tab po q day MODAFINIL 48068 921112 Active Mitch Urbina DO Active PROVIGIL 100 MG TABS Take one by mouth daily MO DAFINIL 14035664030 No Longer Active Mitch Urbina DO Active BACTRIM DS 800-160 MG TAB 1 tab by mouth twice daily 2 TRIMETHOPRIM-SULFAMETHOXAZOLE 39325637853 No Longer Active Renan Hays MD Active FAMOTIDINE 20 MG TABS by mouth twice a day FAMOTI DINE 18269361594 Active Mitch Urbina DO Active ADULT ASPIRIN LOW STRENGTH 81 MG TBDP 1 by mouth every daily ASPIRIN 09856933435 Active Mitch Urbina DO Active METOPROLOL TARTRATE 50 MG TABS 1 by mouth twice daily METOPROLOL TARTRATE 33390822531 Active Mitch Urbina DO Active BACTRIM DS 800-160 MG TAB 1 tab by mouth twice daily 2 BACTRIM DS 800-160 MG TAB 597079 TRIMETHOPRIM-SULFAMETHOXAZOLE Inac tive PROVIGIL 100 MG TABS Take one by mouth daily 4 PROVIGIL 100 MG TABS 597891 MODAFINIL Inactive FUROSEMIDE 40 MG TABS 1 by mouth daily FU ROSEMIDE 40 MG TABS 479858 FUROSEMIDE Inactive KLOR-CON 20 MEQ PACK Take one by mouth daily 8 KLOR-CON 20 MEQ PACK 9220604 POTASSIUM CHLORIDE Inactive LISINOPRIL 5 MG TABS 1 by mouth every day LISINOPRIL 5 MG TABS 185945 LISINOPRIL Inactive COLCRYS 0.6 MG TABS 1 po q 6 hours prn gout pain 03/02 COLCRYS 0.6 MG TABS 088776 COLCHICINE Inactive JANUVIA 100 MG TABS 1/2 by mouth every day JANUVI A 100 MG TABS SITAGLIPTIN PHOSPHATE Inactive SIMVASTATIN 20 MG TABS 1 tab daily at bedtime SIMVASTATIN 20 MG TABS 561536 SIMVASTATIN Inactive COUMADIN 6 MG TABS 1 by mouth every other day COUMADIN 6 MG TABS 010779 WARFARIN SODIUM Inactive COUMADIN 5 MG TABS 1 by mouth every other day COUMADIN 5 MG TABS 234790 WARFARIN SODIUM Inactive LISINOPRIL 20 MG TABS 1 tab po at HS KOKI NOPRIL 20 MG TABS 888527 LISINOPRIL Inactive LISINOPRIL-HYDROCHLOROTHIAZIDE 20-12.5 MG TABS 1 tab by mouth da rocky LISINOPRIL-HYDROCHLOROTHIAZIDE 20-12.5 MG TABS 287170 LISINOPRIL-HYDROCHLOROTHIAZIDE Inactive POLYTRIM 53319-0.1 UNIT/ML-% SOLN 1 drop in affected e ye every 3 hours while awake x 7 days POLYTRIM 94308-7.1 UNIT/ML-% SOLN 56893 7 POLYMYXIN B-TRIMETHOPRIM Inactive COUMADIN 4 MG TABS 1 tablet daily COUMADIN 4 MG TABS 557356 WARFARIN SODIUM Inactive CLONIDINE HCL 0.1 MG TABS 1 po bid 7 days, then 1/2 tab po b id 7 days CLONIDINE HCL 0.1 MG TABS 110284 CLONIDINE HCL I nactive ALLOPURINOL 300 MG TABS Take 1 tablet by mouth daily 2 ALLOPURINOL 300 MG TABS 121197 ALLOPURINOL Inactive MECLIZINE HCL 25 MG TAB 1 po tid 3 days, then 1/2 tab tid 3 days MECLIZINE HCL 25 MG TAB 399299 MECLIZINE HCL Inactive AMLODIPINE BESYLATE 5 MG TABS 1 tablet by mouth daily AMLODIPINE BESYLATE 5 MG TABS 743115 AMLODIPINE BESYLATE Inactive LOVENOX 100 MG/ML SC SOLN One injection twice a day 09/15/15 LOVENOX 100 MG/ML SC SOLN 979617 ENOXAPARIN SODIUM Inactive Vital Signs Date Name [...] Description Chart Maintenance: [facility] - Chemistry occult blood, stool (E&M) Positive Lab Report: Lipid Panel, HEPATIC PANEL, MICROALB/CREAT W/RATIO, HGBA1C, CBC - Chemistry cholesterol, serum 136 mg/dL [phone]/08/09 triglyceride, serum, fasting 187 mg/dL 30-200 HDL [...] 1.0-3.5 Encounters Code Encounter Date Provider Facility CPT-68384 Level 4 Est. Patient 09:30:18 CDT Mitch luis [facility] CPT-77741 Level 3 Est. Patient 15:10:14 CDT Joe kamara [facility] CPT-24124 Level 3 Est. Patient 15:03:46 CDT Joe kamara [facility] CPT-21764 Level 3 Est. Patient 14:21:06 CDT Mitch luis [facility] CPT-25879 Level 3 Est. Patient 14:52:06 CDT Joe kamara [facility] CPT-56659 Level 3 Est. Patient 09:34:30 CHIEF HOSPITAL ADMINISTRATOR Mitch luis [facility] CPT-64470 Level 3 Est. Patient 09:37:15 CDT Mitch luis [facility] CPT-55738 Level 3 Est. Patient 17:01:00 CHIEF HOSPITAL ADMINISTRATOR Mitch luis DO [facility] CPT-96877 Level 3 Est. Patient 13:53:19 CHIEF HOSPITAL ADMINISTRATOR Mitch luis [facility] CPT-60215 Level 3 Est. Patient 19:19:37 CHIEF HOSPITAL ADMINISTRATOR Mitch luis [facility] CPT-17864 Level 3 Est. Patient 13:25:53 CHIEF HOSPITAL ADMINISTRATOR Tavo toure MD [facility] CPT-00836 Level 3 Est. Patient 18:17:28 CDT Mitch luis [facility] CPT-57021 Level 3 Est. Patient 15:22:57 CDT Mitch luis [facility] CPT-50856 Level 3 Est. Patient 18:21:50 CDT Mitch luis [facility] CPT-96064 Level 3 Est. Patient 18:20:38 CDT Mitch luis [facility] CPT-95228 Level 3 Est. Patient 15:37:55 CDT Mitch luis [facility] CPT-47956 Level 2 Est. Patient 15:54:44 CDT Carmine benton MD [facility] CPT-03926 Level 3 Est. Patient 21:46:01 CHIEF HOSPITAL ADMINISTRATOR Mitch luis [facility] CPT-69187 Level 3 Est. Patient 22:15:50 CDT Mitch luis [facility] CPT-34584 Level 3 Est. Patient 10:48:15 CDT Mitch Arnol L janelle [facility] CPT-32056 Level 3 Est. Patient 23:20:57 CDT Tavo toure MD [facility] CPT-07917 Level 3 Est. Patient 16:26:13 CDT Mitch Castellano janelle [facility] Procedures Code Procedure Name Date Entry Date Standard Desc ription CPT-58261 PT/INR - LAB USE ONLY 13:32:49 CHIEF HOSPITAL ADMINISTRATOR CPT-35165 Venipuncture Draw Fee 13:32:49 CHIEF HOSPITAL ADMINISTRATOR CPT-62963 PT/INR - LAB USE ONLY 10:34:49 CHIEF HOSPITAL ADMINISTRATOR CPT-68791 Venipuncture Draw Fee 10:34:48 CHIEF HOSPITAL ADMINISTRATOR CPT-45309 PT/INR - LAB USE ONLY 09:22:03 CHIEF HOSPITAL ADMINISTRATOR CPT-27035 Venipuncture Draw Fee 09:22:02 CHIEF HOSPITAL ADMINISTRATOR CPT-12258 Hemoccult IFOBT - LAB USE ONLY 10:27:22 CDT CPT-92308 Venipuncture Draw Fee 08:27:08 CDT CPT-12629 Liver Profile - LAB USE ONLY 08:27:07 CDT 2 CPT-58362 Microalbumin - LAB USE ONLY 08:27:07 CDT 20 25/05/09 CPT-79781 PT/INR - LAB USE ONLY 08:27:07 CDT CPT-58635 HGBA1C - LAB USE ONLY 08:27:07 CDT CPT-73026 CBC - LAB USE ONLY 08:27:07 CDT CPT-46529 Venipuncture Draw Fee 11:09:14 CDT CPT-68030 Venipuncture Draw Fee 08:32:21 CHIEF HOSPITAL ADMINISTRATOR CPT-06783 Venipuncture Draw Fee 09:38:56 CHIEF HOSPITAL ADMINISTRATOR CPT-97389 No Charge Offi Visit 21:36:07 CDT 1 CPT-16106 Venipuncture Draw Fee 10:13:28 CHIEF HOSPITAL ADMINISTRATOR CPT-71845 Venipuncture Draw Fee 08:31:11 CDT CPT-70730 Aspir/Inject Med Joint 18:17:28 CDT CPT-86734 Venipuncture Draw Fee 10:13:30 CDT CPT-47825 Venipuncture Draw Fee 08:31:43 CHIEF HOSPITAL ADMINISTRATOR CPT-JTINJ Joint Injection 18:34:50 CDT CPT-07630 Knee 3V 12:25:09 CDT CPT-11260 Venipuncture Draw Fee 12:15:57 CDT CPT-060 Medical Surveillance Exam 21:31:43 CDT 2011 CPT-49367 Venipuncture Draw Fee 08:32:05 CHIEF HOSPITAL ADMINISTRATOR CPT-OV Office Visit 18:19:06 CDT
--- OUTSIDE RECORDS SUMMARY | 2020-01-18 12:08 | XMS REPORT | Clinical Summary ---
Author Author Admin, Mitch Leon Organization [facility] Address Unknown Phone Unavailable Allergies, Adverse Reactions, [...] Coronary atherosclerosis of unspecified type of vessel, [place] or graft EDEMA 782.3 Resolved Mitch Urbina [...] for 1 week, then once daily FLUTICASONE NV OPIONATE 69719052921 Active Becky Sell MANAGER LAN Active PREDNISONE 20 MG ORAL TABLET 2 tabs daily for 3 days 1 tab d aily for 3 days PREDNISONE 40362314775 No Longer Active Becky Sell MANAGER LAN Active MINOXIDIL 2.5 MG ORAL TABLET 1 tablet twice daily for high b lood pressure MINOXIDIL 59989176138 Active Mitch Urbina DO Ac tive METFORMIN HCL ER 500 MG ORAL TABLET EXTENDED RELEASE 2 4 HOUR 2 tablets by mouth twice daily METFORMIN HCL 24400508775 Active Mitch Urbina DO Active GLIMEPIRIDE 4 MG ORAL TABLET 1 tablet by mouth twice daily f or diabetes GLIMEPIRIDE 19498110108 Active Mitch Urbina DO Active GLIMEPIRIDE 2 MG ORAL TABLET 1 po BID GLIMEPI RIDE 79956567530 No Longer Active Mitch Urbina DO Active AMLODIPINE BESYLATE 5 MG ORAL TABLET 1 tablet by mouth daily AMLODIPINE BESYLATE 07995359109 Active Mitch Urbina DO Active PROVIGIL 200 MG ORAL TABLET 1/2 tab po q day MODA FINIL 08223146174 Active Renee Oconnor LPN Active FAMOTIDINE 20 MG ORAL TABLET by mouth twice a day 2017 FAMOTIDINE 48082006415 No Longer Active Mitch Urbina DO Active COLCRYS 0.6 MG ORAL TABLET 1 tab qid prn gout C OLCHICINE 02268836094 No Longer Active Mitch Urbina DO Active KEFLEX 500 MG ORAL CAPSULE 1 po qid CEPHALEXI N 20929898627 No Longer Active Mitch Arnol Carlitos VELASQUEZ Active LOSARTAN POTASSIUM 100 MG ORAL TABLET 1 pill by mouth daily, for blood pressure LOSARTAN POTASSIUM 55666002893 Active Mitch Urbina DO Active AMLODIPINE BESYLATE 5 MG ORAL TABLET 1 tablet by mouth daily 201 01/20/04 AMLODIPINE BESYLATE 14687370477 No Longer Active Joe fulton APRN Active MITIGARE 0.6 MG ORAL CAPSULE 2 capsules at onset of go ut pain, then take one capsule at 1 hour if symptoms persist. COLCHICINE 59 293801988 Active Mitch Urbina DO Active COUMADIN 1 MG ORAL TABLET 2 tabs orally daily with the 5mg tab to equal 7mg daily WARFARIN SODIUM 73804001353 Active Maria Briones Active INVOKANA 100 MG ORAL TABLET 1 tablet orally daily CANAGLIFLOZIN 18620826545 Active Mitch Urbina DO Active MECLIZINE HCL 25 MG ORAL TABLET 1 po tid 3 days, then 1/2 ta b tid 3 days MECLIZINE HCL 07796389794 No Longer Active Corey SEGURA Active ALLOPURINOL 300 MG ORAL TABLET Take 1 tablet by mouth daily 2012 ALLOPURINOL 28548838569 No Longer Active Corey SEGURA Active CLONIDINE HCL 0.1 MG ORAL TABLET 1 po bid 7 days, then 1/2 t ab po bid 7 days CLONIDINE HCL 72419874382 No Longer Active Corey SEGURA Active COUMADIN 5 MG ORAL TABLET 1 tab PO daily WARFAR IN SODIUM 76059113854 Active Renee Oconnor LPN Active COUMADIN 4 MG ORAL TABLET 1 tablet daily WARFAR IN SODIUM 22508721609 No Longer Active Corey SEGURA Active POLYTRIM 77009-0.1 UNIT/ML-% OPHTHALMIC SOLUTION 1 rui p in affected eye every 3 hours while awake x 7 days POLYMYXIN B-TRIMETHOP RIM 36245728757 No Longer Active Corey SEGURA Active LOSARTAN POTASSIUM-HCTZ 100-12.5 MG ORAL TABLET 1 by m outh daily for high blood pressure LOSARTAN POTASSIUM-HCTZ 61748605018 No Longer A ctive Mitch Urbina DO Active LISINOPRIL-HYDROCHLOROTHIAZIDE 20-12.5 MG ORAL TABLET 1 tab by m outh daily LISINOPRIL-HYDROCHLOROTHIAZIDE 23369663861 No Longer Active Mitch Urbina DO Active LISINOPRIL 20 MG ORAL TABLET 1 tab po at HS LIS INOPRIL 49410962899 No Longer Active Mitch Urbina DO Active COUMADIN 5 MG ORAL TABLET 1 by mouth every other day 2 WARFARIN SODIUM 56718111744 No Longer Active Mitch Urbina DO Active COUMADIN 6 MG ORAL TABLET 1 by mouth every other day 2 WARFARIN SODIUM 11444278639 No Longer Active Mitch Urbina DO Active SIMVASTATIN 40 MG ORAL TABLET 1 tab daily at bedtime SIMVASTATIN 96083461528 Active Maria Rivas RN Active SIMVASTATIN 20 MG ORAL TABLET 1 tab daily at bedtime 2 SIMVASTATIN 53274152801 No Longer Active Mitch Urbina DO Active LOVENOX 100 MG/ML SUBCUTANEOUS SOLUTION One injection twice a da y ENOXAPARIN SODIUM 25228739925 No Longer Active Carmine Yusuf MD Active JANUVIA 50 MG ORAL TABLET Take one by mouth daily SITAGLIPTIN PHOSPHATE 05798102154 Active Renee Oconnor LPN Active JANUVIA 100 MG ORAL TABLET 1/2 by mouth every day 2011 SITAGLIPTIN PHOSPHATE 62616348839 No Longer Active Bijal Segal RN Acti ve METFORMIN HCL 500 MG ORAL TABLET 2 by mouth twice daily METFORMIN HCL 63756426603 No Longer Active Renee Oconnor LPN Active COLCRYS 0.6 MG ORAL TABLET 1 po q 6 hours prn gout pain COLCHICINE 26030829769 No Longer Active Camila Reese Active LISINOPRIL 5 MG ORAL TABLET 1 by mouth every day 11/17 LISINOPRIL 38982925525 No Longer Active Nguyen Ana Active KLOR-CON 20 MEQ ORAL PACKET Take one by mouth daily 09/10/08 POTASSIUM CHLORIDE 34840400887 No Longer Active Nguyen Ana Active FUROSEMIDE 40 MG ORAL TABLET 1 by mouth daily F UROSEMIDE 06382801234 No Longer Active Nguyen Coekman Active PROVIGIL 100 MG ORAL TABLET Take one by mouth daily 08/20/04 MODAFINIL 34725964303 No Longer Active Mitch Urbina DO Active BACTRIM DS 800-160 MG ORAL TABLET 1 tab by mouth twice daily 201 10/19/09 TRIMETHOPRIM-SULFAMETHOXAZOLE 72155128570 No Longer Active Elian Hays MD Active ADULT ASPIRIN LOW STRENGTH 81 MG ORAL TABLET DISINTEGR ATING 1 by mouth every daily ASPIRIN 51927186854 Active Mitch Urbina DO Ac tive METOPROLOL TARTRATE 50 MG ORAL TABLET 1 by mouth twice daily METOPROLOL TARTRATE 50188880408 Active Maria Rivas RN Ac tive ALLOPURINOL 300 MG ORAL TABLET Take 1 tablet by mouth daily 2012 ALLOPURINOL 300 MG ORAL TABLET 590553 ALLOPURINOL I nactive BACTRIM DS 800-160 MG ORAL TABLET 1 tab by mouth twice daily 201 10/19/09 BACTRIM DS 800-160 MG ORAL TABLET 363912 TRIMETHOPRIM-SULFAMETHOXAZOLE Inactive CLONIDINE HCL 0.1 MG ORAL TABLET 1 po bid 7 days, then 1/2 t ab po bid 7 days CLONIDINE HCL 0.1 MG ORAL TABLET 110082 CLONIDIN E HCL Inactive COUMADIN 5 MG ORAL TABLET 1 by mouth every other day 2 COUMADIN 5 MG ORAL TABLET 138672 WARFARIN SODIUM Inactive FUROSEMIDE 40 MG ORAL TABLET 1 by mouth daily FUROSEMIDE 40 MG ORAL TABLET 509165 FUROSEMIDE Inactive KEFLEX 500 MG ORAL CAPSULE 1 po qid K EFLEX 500 MG ORAL CAPSULE 446373 CEPHALEXIN Inactive KLOR-CON 20 MEQ ORAL PACKET Take one by mouth daily 09/10/08 KLOR- CON 20 MEQ ORAL PACKET 7389406 POTASSIUM CHLORIDE Inactive LISINOPRIL 20 MG ORAL TABLET 1 tab po at HS LISINOPRIL 20 MG ORAL TABLET 825565 LISINOPRIL Inactive POLYTRIM 63798-4.1 UNIT/ML-% OPHTHALMIC SOLUTION 1 rui p in affected eye every 3 hours while awake x 7 days POLYTRIM 1000 0-0.1 UNIT/ML-% OPHTHALMIC SOLUTION 622482 POLYMYXIN B-TRIMETHOPRIM Inactive PREDNISONE 20 MG ORAL TABLET 2 tabs daily for 3 days 1 tab d aily for 3 days PREDNISONE 20 MG ORAL TABLET 280331 PREDNISONE Inactive AMLODIPINE BESYLATE 5 MG ORAL TABLET 1 tablet by mouth daily 201 01/20/04 AMLODIPINE BESYLATE 5 MG ORAL TABLET 447053 AMLODIPINE BESYLATE Inactive FAMOTIDINE 20 MG ORAL TABLET by mouth twice a day 2017 FAMOTIDINE 20 MG ORAL TABLET 137366 FAMOTIDINE Inactive LISINOPRIL 5 MG ORAL TABLET 1 by mouth every day 11/17 LISINOPRIL 5 MG ORAL TABLET 600892 LISINOPRIL Inactive LISINOPRIL-HYDROCHLOROTHIAZIDE 20-12.5 MG ORAL TABLET 1 tab by m outh daily LISINOPRIL-HYDROCHLOROTHIAZIDE 20-12.5 MG ORAL TABLET 600482 LISINOPRIL-HYDROCHLOROTHIAZIDE Inactive SIMVASTATIN 20 MG ORAL TABLET 1 tab daily at bedtime 2 SIMVASTATIN 20 MG ORAL TABLET 005810 SIMVASTATIN Inactive COUMADIN 4 MG ORAL TABLET 1 tablet daily COUMADIN 4 MG ORAL TABLET 812572 WARFARIN SODIUM Inactive MECLIZINE HCL 25 MG ORAL TABLET 1 po tid 3 days, then 1/2 ta b tid 3 days MECLIZINE HCL 25 MG ORAL TABLET 257149 MECLIZINE HCL Inactive GLIMEPIRIDE 2 MG ORAL TABLET 1 po BID GLIMEPIRIDE 2 MG ORAL TABLET 083022 GLIMEPIRIDE Inactive COUMADIN 6 MG ORAL TABLET 1 by mouth every other day 2 COUMADIN 6 MG ORAL TABLET 199430 WARFARIN SODIUM Inactive LOVENOX 100 MG/ML SUBCUTANEOUS SOLUTION One injection twice a da y LOVENOX 100 MG/ML SUBCUTANEOUS SOLUTION 591369 ENOXAPAR IN SODIUM Inactive PROVIGIL 100 MG ORAL TABLET Take one by mouth daily 08/20/04 PROVIGIL 100 MG ORAL TABLET 249031 MODAFINIL Inactive JANUVIA 100 MG ORAL TABLET 1/2 by mouth every day 2011 JANUVIA 100 MG ORAL TABLET SITAGLIPTIN PHOSPHATE Inactive COLCRYS 0.6 MG ORAL TABLET 1 po q 6 hours prn gout pain COLCRYS 0.6 MG ORAL TABLET 201203 COLCHICINE Inactive COLCRYS 0.6 MG ORAL TABLET 1 tab qid prn gout COLCRYS 0.6 MG ORAL TABLET 593782 COLCHICINE Inactive Advance Directives Directive Description Start [...] mg/dL Encounters Code Encounter Date Provider Facility CPT-87963 Level 3 Est. Patient 15:18:36 CDT Becky anderson [facility] [place][note 2] CPT-61284 [id number] Vst-Est Level IV 10:06:35 CDT Stephy Ambrose [facility] CPT-67094 [id number] Vst-Est Level IV 10:52:00 BEAMER HAND Stephy Ambrose [facility] CPT-47337 Level 3 Est. Patient 18:25:53 CDT Mitch luis [facility] CPT-06220 Level 3 Est. Patient 19:43:34 CDT Mitch luis [facility] CPT-99795 Level 4 Est. Patient 09:30:18 CDT Mitch luis [facility] CPT-28518 Level 3 Est. Patient 15:10:14 CDT Joe kamara [facility] [place][note 2] CPT-48001 Level 3 Est. Patient 15:03:46 CDT Joe kamara [facility] [place][note 2] CPT-50824 Level 3 Est. Patient 14:21:06 CDT Mitch luis [facility] CPT-36656 Level 3 Est. Patient 14:52:06 CDT Joe kamara [facility] [place][note 2] CPT-88736 Level 3 Est. Patient 09:34:30 BEAMER HAND Mitch luis [facility] CPT-26215 Level 3 Est. Patient 09:37:15 CDT Mitch luis [facility] CPT-87301 Level 3 Est. Patient 17:01:00 BEAMER HAND Mitch luis [facility] CPT-20245 Level 3 Est. Patient 13:53:19 BEAMER HAND Mitch luis [facility] CPT-60607 Level 3 Est. Patient 19:19:37 BEAMER HAND Mitch luis [facility] CPT-55261 Level 3 Est. Patient 13:25:53 BEAMER HAND Tavo toure MD [facility] CPT-97995 Level 3 Est. Patient 18:17:28 CDT Mitch luis [facility] CPT-31210 Level 3 Est. Patient 15:22:57 CDT Mitch luis [facility] CPT-49923 Level 3 Est. Patient 18:21:50 CDT Mitch luis [facility] CPT-88356 Level 3 Est. Patient 18:20:38 CDT Mitch luis [facility] CPT-35056 Level 3 Est. Patient 15:37:55 CDT Mitch luis [facility] CPT-47980 Level 2 Est. Patient 15:54:44 CDT Carmine benton MD [facility]-93039 Level 3 Est. Patient 21:46:01 BEAMER HAND Mitch luis [facility] CPT-45943 Level 3 Est. Patient 22:15:50 CDT Mitch luis [facility] CPT-11135 Level 3 Est. Patient 10:48:15 CDT Mitch luis [facility] CPT-66743 Level 3 Est. Patient 23:20:57 CDT Tavo toure MD [facility] CPT-04602 Level 3 Est. Patient 16:26:13 CDT Mitch luis [facility] Procedures Code Procedure Name Date Entry Date Standard Desc ription CPT-67748 Venipuncture Draw Fee 14:56:20 CDT CPT-JTINJ Asp/Joint Injection 18:47:02 CDT CPT-26661 Venipuncture Draw Fee 09:26:17 CDT CPT-05122 PT/INR - LAB USE ONLY 13:32:49 BEAMER HAND CPT-32701 Venipuncture Draw Fee 13:32:49 BEAMER HAND CPT-26771 PT/INR - LAB USE ONLY 10:34:49 BEAMER HAND CPT-98405 Venipuncture Draw Fee 10:34:48 BEAMER HAND CPT-64879 PT/INR - LAB USE ONLY 09:22:03 BEAMER HAND CPT-10133 Venipuncture Draw Fee 09:22:02 BEAMER HAND CPT-19578 Hemoccult IFOBT - LAB USE ONLY 10:27:22 CDT CPT-62991 Venipuncture Draw Fee 08:27:08 CDT CPT-86090 Liver Profile - LAB USE ONLY 08:27:07 CDT 2 CPT-38126 Microalbumin - LAB USE ONLY 08:27:07 CDT 20 25/05/09 CPT-78514 PT/INR - LAB USE ONLY 08:27:07 CDT CPT-89521 HGBA1C - LAB USE ONLY 08:27:07 CDT CPT-13248 CBC - LAB USE ONLY 08:27:07 CDT CPT-02068 Venipuncture Draw Fee 11:09:14 CDT CPT-84491 Venipuncture Draw Fee 08:32:21 BEAMER HAND CPT-68438 Venipuncture Draw Fee 09:38:56 BEAMER HAND CPT-74481 No Charge Offi Visit 21:36:07 CDT 1 CPT-40016 Venipuncture Draw Fee 10:13:28 BEAMER HAND CPT-12485 Venipuncture Draw Fee 08:31:11 CDT CPT-45547 Aspir/Inject Med Joint 18:17:28 CDT CPT-28052 Venipuncture Draw Fee 10:13:30 CDT CPT-98984 Venipuncture Draw Fee 08:31:43 BEAMER HAND CPT-JTINJ Joint Injection 18:34:50 CDT CPT-47860 Knee 3V 12:25:09 CDT CPT-62767 Venipuncture Draw Fee 12:15:57 CDT CPT-060 Medical Surveillance Exam 21:31:43 CDT 2011 CPT-06749 Venipuncture Draw Fee 08:32:05 BEAMER HAND CPT-OV Office Visit 18:19:06 CDT
--- OUTSIDE RECORDS SUMMARY | 2020-01-18 12:09 | XMS REPORT | Clinical Summary ---
Author Author Admin, Mitch Leon Organization [facility] Address Unknown Phone Unavailable [...] Coronary atherosclerosis of unspecified type of vessel, [place] or graft EDEMA 782.3 Resolved Mitch Urbina [...] ( 6mg total ) 2015 WARFARIN SODIUM 43744370308 Active Domi Rivera MA Acti ve INVOKANA 100 MG ORAL TABS 1 tablet orally daily CANAGLIFLOZIN 22706551199 Active Kathie Juan RPT,RMA Active MINOXIDIL 2.5 MG TABS 1 tablet daily for high blood pressure 10/23 MINOXIDIL 66514118226 Active Mitch Urbina DO Active AMLODIPINE BESYLATE 5 MG TABS 1 tablet by mouth daily AMLODIPINE BESYLATE 78183335199 Active Domi Rivera MA Active MECLIZINE HCL 25 MG TAB 1 po tid 3 days, then 1/2 tab tid 3 days MECLIZINE HCL 96712213809 No Longer Active Corey SEGURA Active ALLOPURINOL 300 MG TABS Take 1 tablet by mouth daily 2 ALLOPURINOL 88749962104 No Longer Active Corey SEGURA Activ e CLONIDINE HCL 0.1 MG TABS 1 po bid 7 days, then 1/2 tab po b id 7 days CLONIDINE HCL 35553946091 No Longer Active Corey SEGURA Active COUMADIN 5 MG TABS 1 tab PO daily WARFARIN SODIUM 61124646286 Active Mitch Urbina DO Active COUMADIN 4 MG TABS 1 tablet daily WARFARIN SODI UM 34833610355 No Longer Active Corey SEGURA Active POLYTRIM 46604-9.1 UNIT/ML-% SOLN 1 drop in affected e ye every 3 hours while awake x 7 days POLYMYXIN B-TRIMETHOPRIM 71463611190 N o Longer Active Corey SEGURA Active LOSARTAN POTASSIUM-HCTZ 100-12.5 MG TABS 1 by mouth da rocky for high blood pressure LOSARTAN POTASSIUM-HCTZ 74595723574 Active Domi Rivera MA Active LISINOPRIL-HYDROCHLOROTHIAZIDE 20-12.5 MG TABS 1 tab by mouth da rocky LISINOPRIL-HYDROCHLOROTHIAZIDE 23727517025 No Longer Active Mitch luis DO Active LISINOPRIL 20 MG TABS 1 tab po at HS LISINOPRIL 31402015726 No Longer Active Mitch Urbina DO Active COUMADIN 5 MG TABS 1 by mouth every other day WARFARIN SODIUM 77529926910 No Longer Active Mitch Urbina DO Active COUMADIN 6 MG TABS 1 by mouth every other day WARFARIN SODIUM 00066496534 No Longer Active Mitch Urbina DO Active COLCRYS 0.6 MG TABS 1 tab qid prn gout COLCHICINE 59252681989 Active Corey SEGURA Active SIMVASTATIN 40 MG TABS 1 tab daily at bedtime S IMVASTATIN 02347493790 Active Domi Rivera MA Active SIMVASTATIN 20 MG TABS 1 tab daily at bedtime S IMVASTATIN 92228851012 No Longer Active Mitch Urbina DO Active LOVENOX 100 MG/ML SC SOLN One injection twice a day 09/15/15 ENOXAPARIN SODIUM 63479641495 No Longer Active Carmine Navarrete ctive JANUVIA 50 MG TABS Take one by mouth daily DIEGO GLIPTIN PHOSPHATE 91285884548 Active Domi Rivera MA Active JANUVIA 100 MG TABS 1/2 by mouth every day DIEGO GLIPTIN PHOSPHATE 39792215077 No Longer Active Bijal Segal RN Active METFORMIN HCL 500 MG TABS 2 by mouth twice daily METFORMIN HCL 30966752121 Active Domi Rivera MA Active GLIMEPIRIDE 4 MG TABS 1 tab po bid GLIMEPIRIDE 881596 07060 Active Domi Rivera MA Active COLCRYS 0.6 MG TABS 1 po q 6 hours prn gout pain 03/02 COLCHICINE 90438560069 No Longer Active Camila Reese Active LISINOPRIL 5 MG TABS 1 by mouth every day LISIN OPRIL 47180464757 No Longer Active Nguyenmolly Perez Active KLOR-CON 20 MEQ PACK Take one by mouth daily 8 POTASSIUM CHLORIDE 11470918588 No Longer Active Nguyenmolly Perez Active FUROSEMIDE 40 MG TABS 1 by mouth daily FUROSEMI DE 01928054749 No Longer Active Nguyen Ana Active PROVIGIL 200 MG TABS 1/2 tab po q day MODAFINIL 99796 926630 Active Domi Rivera MA Active PROVIGIL 100 MG TABS Take one by mouth daily MO DAFINIL 69426746381 No Longer Active Mitch Urbina DO Active BACTRIM DS 800-160 MG TAB 1 tab by mouth twice daily 2 TRIMETHOPRIM-SULFAMETHOXAZOLE 49886267451 No Longer Active Renan Hays MD Active FAMOTIDINE 20 MG TABS by mouth twice a day FAMOTI DINE 16511336010 Active Mitch Urbina DO Active ADULT ASPIRIN LOW STRENGTH 81 MG TBDP 1 by mouth every daily ASPIRIN 71876708234 Active Mitch Urbina DO Active METOPROLOL TARTRATE 50 MG TABS 1 by mouth twice daily METOPROLOL TARTRATE 43435897927 Active Domi Rivera MA Active BACTRIM DS 800-160 MG TAB 1 tab by mouth twice daily 2 BACTRIM DS 800-160 MG TAB 412473 TRIMETHOPRIM-SULFAMETHOXAZOLE Inac tive PROVIGIL 100 MG TABS Take one by mouth daily 4 PROVIGIL 100 MG TABS 349575 MODAFINIL Inactive FUROSEMIDE 40 MG TABS 1 by mouth daily FU ROSEMIDE 40 MG TABS 497304 FUROSEMIDE Inactive KLOR-CON 20 MEQ PACK Take one by mouth daily 8 KLOR-CON 20 MEQ PACK 276398 POTASSIUM CHLORIDE Inactive LISINOPRIL 5 MG TABS 1 by mouth every day LISINOPRIL 5 MG TABS 366494 LISINOPRIL Inactive COLCRYS 0.6 MG TABS 1 po q 6 hours prn gout pain 03/02 COLCRYS 0.6 MG TABS 071452 COLCHICINE Inactive JANUVIA 100 MG TABS 1/2 by mouth every day JANUVI A 100 MG TABS SITAGLIPTIN PHOSPHATE Inactive SIMVASTATIN 20 MG TABS 1 tab daily at bedtime SIMVASTATIN 20 MG TABS 621494 SIMVASTATIN Inactive COUMADIN 6 MG TABS 1 by mouth every other day COUMADIN 6 MG TABS 813073 WARFARIN SODIUM Inactive COUMADIN 5 MG TABS 1 by mouth every other day COUMADIN 5 MG TABS 935410 WARFARIN SODIUM Inactive LISINOPRIL 20 MG TABS 1 tab po at HS KOKI NOPRIL 20 MG TABS 847650 LISINOPRIL Inactive LISINOPRIL-HYDROCHLOROTHIAZIDE 20-12.5 MG TABS 1 tab by mouth da rocky LISINOPRIL-HYDROCHLOROTHIAZIDE 20-12.5 MG TABS 409998 LISINOPRIL-HYDROCHLOROTHIAZIDE Inactive POLYTRIM 13290-7.1 UNIT/ML-% SOLN 1 drop in affected e ye every 3 hours while awake x 7 days POLYTRIM 70404-4.1 UNIT/ML-% SOLN 61685 7 POLYMYXIN B-TRIMETHOPRIM Inactive COUMADIN 4 MG TABS 1 tablet daily COUMADIN 4 MG TABS 959054 WARFARIN SODIUM Inactive CLONIDINE HCL 0.1 MG TABS 1 po bid 7 days, then 1/2 tab po b id 7 days CLONIDINE HCL 0.1 MG TABS 041190 CLONIDINE HCL I nactive ALLOPURINOL 300 MG TABS Take 1 tablet by mouth daily 2 ALLOPURINOL 300 MG TABS 355381 ALLOPURINOL Inactive MECLIZINE HCL 25 MG TAB 1 po tid 3 days, then 1/2 tab tid 3 days MECLIZINE HCL 25 MG TAB 121125 MECLIZINE HCL Inactive LOVENOX 100 MG/ML SC SOLN One injection twice a day 09/15/15 LOVENOX 100 MG/ML SC SOLN 675800 ENOXAPARIN SODIUM Inactive Vital Signs Date Name [...] Range Description Chart Maintenance: Hemoccult added to fl owsheet - Chemistry occult blood, stool (E&M) Positive [...] Ag - Chemistry sodium, serum 141 mmol/L 817-409 9882/07/06 potassium, serum 4.4 mmol/L 3.5-5.2 chloride, serum [...] - Chem istry sodium, serum 136 mmol/L 877-614 1804/01/14 carbon dioxide, venous blood 25.4 mmol/L 21.0-32 .0 potassium, serum 4.2 mmol/L 3.5-5.2 chloride, serum 100 mmol/L 98-107 blood glucose 241 mg/dL 65-110 urea nitrogen, blood 25 mg/dL 7-18 creatinine, serum 1.11 mg/dL 0.55-1.30 alanine aminotransferase (SGPT), serum 37 U/L 12-78 aspartate aminotransferase (SGOT), serum 26 U/L 15-37 calcium, serum 9.7 mg/dL 8.5-10.1 bilirubin, serum, total 0.70 mg/dL 0.00-1.00 Lab Report: HGBA1C, Lipid Panel - Chemis try hemoglobin A1C, blood, as % of total hemoglobin 7.0 % 4.3-6.0 cholesterol, serum 120 mg/dL 549-326 4736/07/06 triglyceride, serum, fasting 186 mg/dL 30-200 HDL [...] 1.0-3.5 Encounters Code Encounter Date Provider Facility CPT-42840 Level 3 Est. Patient 09:34:30 BRYOLOGIST Mitch luis [facility] CPT-76971 Level 3 Est. Patient 09:37:15 CDT Mitch luis [facility] CPT-47669 Level 3 Est. Patient 17:01:00 BRYOLOGIST Mitch luis [facility] CPT-27979 Level 3 Est. Patient 13:53:19 BRYOLOGIST Mitch luis [facility] CPT-88764 Level 3 Est. Patient 19:19:37 BRYOLOGIST Mitch luis [facility] CPT-62286 Level 3 Est. Patient 13:25:53 BRYOLOGIST Tavo toure MD [facility] CPT-91276 Level 3 Est. Patient 18:17:28 CDT Mitch luis [facility] CPT-86789 Level 3 Est. Patient 15:22:57 CDT Mitch luis [facility] CPT-04381 Level 3 Est. Patient 18:21:50 CDT Mitch luis [facility] CPT-22115 Level 3 Est. Patient 18:20:38 CDT Mitch luis [facility] CPT-10489 Level 3 Est. Patient 15:37:55 CDT Mitch luis [facility] CPT-62484 Level 2 Est. Patient 15:54:44 CDT Carmine benton MD [facility] CPT-00292 Level 3 Est. Patient 21:46:01 BRYOLOGIST Mitch luis [facility] CPT-22487 Level 3 Est. Patient 22:15:50 CDT Mitch luis [facility] CPT-58790 Level 3 Est. Patient 10:48:15 CDT Mitch luis [facility] CPT-55760 Level 3 Est. Patient 23:20:57 CDT Tavo toure MD [facility] CPT-53193 Level 3 Est. Patient 16:26:13 CDT Mitch luis [facility] Procedures Code Procedure Name Date Entry Date Standard Desc ription CPT-76792 Venipuncture Draw Fee 08:32:21 BRYOLOGIST CPT-17102 Venipuncture Draw Fee 09:38:56 BRYOLOGIST CPT-94925 No Charge Offi Visit 21:36:07 CDT 1 CPT-47842 Venipuncture Draw Fee 10:13:28 BRYOLOGIST CPT-39679 Venipuncture Draw Fee 08:31:11 CDT CPT-71558 Aspir/Inject Med Joint 18:17:28 CDT CPT-01086 Venipuncture Draw Fee 10:13:30 CDT CPT-96261 Venipuncture Draw Fee 08:31:43 BRYOLOGIST CPT-JTINJ Joint Injection 18:34:50 CDT CPT-51776 Knee 3V 12:25:09 CDT CPT-50424 Venipuncture Draw Fee 12:15:57 CDT CPT-060 Medical Surveillance Exam 21:31:43 CDT 2011 CPT-88586 Venipuncture Draw Fee 08:32:05 BRYOLOGIST CPT-OV Office Visit 18:19:06 CDT
--- OUTSIDE RECORDS SUMMARY | 2020-01-18 12:09 | XMS REPORT | Clinical Summary ---
Author Author Admin, Mitch Leon Organization [facility] Address Unknown Phone Unavailable Allergies, [...] Coronary atherosclerosis of unspecified type of vessel, [place] or graft EDEMA 782.3 Active Mitch Urbina [...] 1 tablet by mouth daily AMLODIPINE BESYLATE 97798572714 Active Mitch Urbina DO Active MECLIZINE HCL 25 MG TAB 1 po tid 3 days, then 1/2 tab tid 3 days MECLIZINE HCL 94545000581 No Longer Active Corey SEGURA Active ALLOPURINOL 300 MG TABS Take 1 tablet by mouth daily 2 ALLOPURINOL 89949448133 No Longer Active Corey SEGURA Activ e CLONIDINE HCL 0.1 MG TABS 1 po bid 7 days, then 1/2 tab po b id 7 days CLONIDINE HCL 81387196233 No Longer Active Corey SEGURA Active COUMADIN 5 MG TABS 1 tab PO daily WARFARIN SODIUM 58077608439 Active Mitch Urbina DO Active COUMADIN 4 MG TABS 1 tablet daily WARFARIN SODI UM 17447364047 No Longer Active Corey SEGURA Active POLYTRIM 64477-3.1 UNIT/ML-% SOLN 1 drop in affected e ye every 3 hours while awake x 7 days POLYMYXIN B-TRIMETHOPRIM 99957674487 N o Longer Active Corey SEGURA Active LOSARTAN POTASSIUM-HCTZ 100-12.5 MG TABS 1 by mouth [place] for high blood pressure LOSARTAN POTASSIUM-HCTZ 43278502137 Active Stephy Urbina DO Active LISINOPRIL-HYDROCHLOROTHIAZIDE 20-12.5 MG TABS 1 tab by mouth da [place] LISINOPRIL-HYDROCHLOROTHIAZIDE 99637339602 No Longer Active Mitch luis DO Active LISINOPRIL 20 MG TABS 1 tab po at HS LISINOPRIL 74294529351 No Longer Active Mitch Urbina DO Active COUMADIN 5 MG TABS 1 by mouth every other day WARFARIN SODIUM 51202448602 No Longer Active Mitch Urbina DO Active COUMADIN 6 MG TABS 1 by mouth every other day WARFARIN SODIUM 86117884405 No Longer Active Mitch Urbina DO Active COLCRYS 0.6 MG TABS 1 tab qid prn gout COLCHICINE 67502417405 Active Corey SEGURA Active SIMVASTATIN 40 MG TABS 1 tab daily at bedtime S IMVASTATIN 62844237425 Active Mitch Urbina DO Active SIMVASTATIN 20 MG TABS 1 tab daily at bedtime S IMVASTATIN 17769144452 No Longer Active Mitch Urbina DO Active LOVENOX 100 MG/ML SC SOLN One injection twice a day 09/15/15 ENOXAPARIN SODIUM 71037024708 No Longer Active Carmine Navarrete ctive JANUVIA 50 MG TABS Take one by mouth daily DIEGO GLIPTIN PHOSPHATE 56133846822 Active Corey Arias PA Active JANUVIA 100 MG TABS 1/2 by mouth every day DIEGO GLIPTIN PHOSPHATE 22303418968 No Longer Active Bijalseth Segal RN Active METFORMIN HCL 500 MG TABS 2 by mouth twice daily METFORMIN HCL 71674189136 Active Mitch Urbina DO Active GLIMEPIRIDE 4 MG TABS 1 tab po bid GLIMEPIRIDE 469741 03995 Active Mitch Urbina DO Active COLCRYS 0.6 MG TABS 1 po q 6 hours prn gout pain 03/02 COLCHICINE 79810926151 No Longer Active Camila Reese Active LISINOPRIL 5 MG TABS 1 by mouth every day LISIN OPRIL 84040617674 No Longer Active Nguyen Perez Active KLOR-CON 20 MEQ PACK Take one by mouth daily 8 POTASSIUM CHLORIDE 76382082968 No Longer Active Nguyen Perez Active FUROSEMIDE 40 MG TABS 1 by mouth daily FUROSEMI DE 46461828269 No Longer Active Nguyen Perez Active PROVIGIL 200 MG TABS 1/2 tab po q day MODAFINIL 92882 203254 Active Mitch Urbina DO Active PROVIGIL 100 MG TABS Take one by mouth daily MO DAFINIL 91428090475 No Longer Active Mitch Urbina DO Active BACTRIM DS 800-160 MG TAB 1 tab by mouth twice daily 2 TRIMETHOPRIM-SULFAMETHOXAZOLE 44292815183 No Longer Active Renan Hays MD Active FAMOTIDINE 20 MG TABS by mouth twice a day FAMOTI DINE 38047449390 Active Mitch Urbina DO Active ADULT ASPIRIN LOW STRENGTH 81 MG TBDP 1 by mouth every daily ASPIRIN 85456515076 Active Mitch Urbina DO Active METOPROLOL TARTRATE 50 MG TABS 1 by mouth twice daily METOPROLOL TARTRATE 72601340245 Active Mitch W [place] DO Active BACTRIM DS 800-160 MG TAB 1 tab by mouth twice daily 2 BACTRIM DS 800-160 MG TAB TRIMETHOPRIM-SULFAMETHOXAZOLE Inac tive PROVIGIL 100 MG TABS Take one by mouth daily 4 PROVIGIL 100 MG TABS 371509 MODAFINIL Inactive FUROSEMIDE 40 MG TABS 1 by mouth daily FU ROSEMIDE 40 MG TABS 511446 FUROSEMIDE Inactive KLOR-CON 20 MEQ PACK Take one by mouth daily 8 KLOR-CON 20 MEQ PACK 375488 POTASSIUM CHLORIDE Inactive LISINOPRIL 5 MG TABS 1 by mouth every day LISINOPRIL 5 MG TABS 668609 LISINOPRIL Inactive COLCRYS 0.6 MG TABS 1 po q 6 hours prn gout pain 03/02 COLCRYS 0.6 MG TABS COLCHICINE Inactive JANUVIA 100 MG TABS 1/2 by mouth every day JANUVI A 100 MG TABS SITAGLIPTIN PHOSPHATE Inactive SIMVASTATIN 20 MG TABS 1 tab daily at bedtime SIMVASTATIN 20 MG TABS 456238 SIMVASTATIN Inactive COUMADIN 6 MG TABS 1 by mouth every other day COUMADIN 6 MG TABS 706863 WARFARIN SODIUM Inactive COUMADIN 5 MG TABS 1 by mouth every other day COUMADIN 5 MG TABS 110001 WARFARIN SODIUM Inactive LISINOPRIL 20 MG TABS 1 tab po at HS KOKI NOPRIL 20 MG TABS 512024 LISINOPRIL Inactive LISINOPRIL-HYDROCHLOROTHIAZIDE 20-12.5 MG TABS 1 tab by mouth da [place] LISINOPRIL-HYDROCHLOROTHIAZIDE 20-12.5 MG TABS 366612 LISINOPRIL-HYDROCHLOROTHIAZIDE Inactive POLYTRIM 83923-5.1 UNIT/ML-% SOLN 1 drop in affected e ye every 3 hours while awake x 7 days POLYTRIM 19972-0.1 UNIT/ML-% SOLN 37701 7 POLYMYXIN B-TRIMETHOPRIM Inactive COUMADIN 4 MG TABS 1 tablet daily COUMADIN 4 MG TABS 431204 WARFARIN SODIUM Inactive CLONIDINE HCL 0.1 MG TABS 1 po bid 7 days, then 1/2 tab po b id 7 days CLONIDINE HCL 0.1 MG TABS 496677 CLONIDINE HCL I nactive ALLOPURINOL 300 MG TABS Take 1 tablet by mouth daily 2 ALLOPURINOL 300 MG TABS 733624 ALLOPURINOL Inactive MECLIZINE HCL 25 MG TAB 1 po tid 3 days, then 1/2 tab tid 3 days MECLIZINE HCL 25 MG TAB 005336 MECLIZINE HCL Inactive LOVENOX 100 MG/ML SC SOLN One injection twice a day 09/15/15 LOVENOX 100 MG/ML SC SOLN 931548 ENOXAPARIN SODIUM Inactive Vital Signs Date Name [...] Acid - Chemistry sodium, serum 136 mmol/L 296-202 3607/07/25 potassium, serum 4.6 mmol/L 3.5-5.2 chloride, serum [...] Panel, HGBA1C, MICROALBUMIN, Uric Acid - Hematology mean corpuscular hemoglobin, RBC 25.6 pg 27. 0-31.2 mean corpuscular hemoglobin concentration, RBC 32.0 G/DL % 31.8-35.4 red blood cell distribution width 18.3 % 11 .6-14.8 platelet count 277 10^3/MM^3 10*3/mm3 262-776 7856/07/25 mean corpuscular volume, RBC 80 fL 80-97 hematocrit, blood 40.1 % 41.0-53.0 hemoglobin, blood 12.8 g/dL 13.5-17.5 erythrocyte (RBC) count 5.02 10^6/MM^3 10*6/mm3 4.69-6.1 3 leukocyte count, blood 6.6 10^3/MM^3 10*3/mm3 4.6-10.2 Lab Report: CBC, Comp. Metabolic Panel, HGBA1C, MICROALBUMIN, Uric Acid - Lab microalbumin, urine 30 0-19 Lab Report: Comp. Metabolic Panel, HGBA1 C, Lipid Panel - Chemistry calcium, serum 10.4 mg/dL 8.5-10.1 bilirubin, serum, total 0.90 mg/dL 0.00-1.00 hemoglobin A1C, blood, as % of total hemoglobin 8.0 % 4.3-6.0 cholesterol, serum 130 mg/dL 234-847 1954/11/14 triglyceride, serum, fasting 288 mg/dL 30-200 HDL cholesterol, serum 33 mg/dL 32-96 LDL cholesterol, serum 39 mg/dL 0-130 sodium, serum 137 mmol/L 402-874 3937/11/14 potassium, serum 4.4 mmol/L 3.5-5.2 chloride, serum 100 mmol/L 98-107 carbon dioxide, venous blood 33.0 mmol/L 21.0-32 .0 blood glucose 181 mg/dL 65-110 urea nitrogen, blood 28 mg/dL 7-18 creatinine, serum 1.30 mg/dL 0.60-1.30 alanine aminotransferase (SGPT), serum 38 U/L -78 aspartate aminotransferase (SGOT), serum 34 U/L 15-37 Lab Report: Comp. Metabolic Panel, HGBA1 C, Lipid Panel, Prothrombin Time - Chemistry sodium, serum 136 mmol/L 913-452 0834/12/02 potassium, serum 4.4 mmol/L 3.5-5.2 chloride, serum 101 mmol/L 98-107 carbon dioxide, venous blood 29.0 mmol/L 21.0-32 .0 blood glucose 149 mg/dL 65-110 urea nitrogen, blood 29 mg/dL 7-18 creatinine, serum 1.20 mg/dL 0.60-1.30 alanine aminotransferase (SGPT), serum 46 U/L aspartate aminotransferase (SGOT), serum 34 U/L 15-37 calcium, serum 10.3 mg/dL 8.5-10.1 bilirubin, serum, total 0.60 mg/dL 0.00-1.00 hemoglobin A1C, blood, as % of total hemoglobin 7.6 % 4.3-6.0 cholesterol, serum 117 mg/dL 501-253 3054/12/02 triglyceride, serum, fasting 226 mg/dL 30-200 HDL [...] 1.0-3.5 Encounters Code Encounter Date Provider Facility CPT-89785 Level 3 Est. Patient 17:01:00 DEPARTMENT SALES MANAGER Mitch luis [facility] CPT-47774 Level 3 Est. Patient 13:53:19 DEPARTMENT SALES MANAGER Mitch luis [facility] CPT-35206 Level 3 Est. Patient 19:19:37 DEPARTMENT SALES MANAGER Mitch luis [facility] CPT-87305 Level 3 Est. Patient 13:25:53 DEPARTMENT SALES MANAGER Tavo toure MD [facility] CPT-96926 Level 3 Est. Patient 18:17:28 CDT Mitch luis [facility] CPT-86640 Level 3 Est. Patient 15:22:57 CDT Mitch luis [facility] CPT-64304 Level 3 Est. Patient 18:21:50 CDT Mitch luis [facility] CPT-74687 Level 3 Est. Patient 18:20:38 CDT Mitch luis [facility] CPT-30445 Level 3 Est. Patient 15:37:55 CDT Mitch Ambrose L ee [facility] CPT-27955 Level 2 Est. Patient 15:54:44 CDT Carmine benton MD [facility] CPT-02735 Level 3 Est. Patient 21:46:01 DEPARTMENT SALES MANAGER Mitch luis [facility] CPT-03723 Level 3 Est. Patient 22:15:50 CDT Mitch Arnol luis [facility] CPT-62939 Level 3 Est. Patient 10:48:15 CDT Mitch Arnol luis [facility] CPT-58097 Level 3 Est. Patient 23:20:57 CDT Tavo toure MD [facility] CPT-61955 Level 3 Est. Patient 16:26:13 CDT Mitch Castellano janelle [facility] Procedures Code Procedure Name Date Entry Date Standard Desc ription CPT-01401 Venipuncture Draw Fee 10:13:28 DEPARTMENT SALES MANAGER CPT-61661 Venipuncture Draw Fee 08:31:11 CDT CPT-82157 Aspir/Inject Med Joint 18:17:28 CDT CPT-59250 Venipuncture Draw Fee 10:13:30 CDT CPT-30895 Venipuncture Draw Fee 08:31:43 DEPARTMENT SALES MANAGER CPT-JTINJ Joint Injection 18:34:50 CDT CPT-24026 Knee 3V 12:25:09 CDT CPT-74254 Venipuncture Draw Fee 12:15:57 CDT CPT-060 Medical Surveillance Exam 21:31:43 CDT 2011 CPT-68755 Venipuncture Draw Fee 08:32:05 DEPARTMENT SALES MANAGER CPT-OV Office Visit 18:19:06 CDT
--- OUTSIDE RECORDS SUMMARY | 2020-01-18 12:09 | XMS REPORT | Clinical Summary ---
Author Author Admin, Mitch Leon Organization [facility] Address Unknown Phone Unavailable Allergies, Adverse [...] system GOUT, RIGHT WRIST 274.9 Resolved Mitch Urbina DO Gout, unspecified BRUISE 924.9 Resolved Mitch Urbina DO Co ntusion of unspecified site OLECRANON BURSITIS, RIGHT 726.33 Resolved Br ucponce Arnol Urbina DO Olecranon bursitis UNSPECIFIED ANEMIA 285.9 Resolved Mitch Urbina DO Anemia, unspecified Malaise and fatigue 780.79 Resolved Mitch Arnol Urbina D O Other malaise and fatigue Cough, chronic 786.2 Resolved Mitch Urbina DO Cough Sebaceous cyst, infected 706.2 Resolved Mitch Urbina DO Sebaceous cyst Cellulitis 682.9 Resolved Mitch Urbina DO Cellulitis and abscess of unspecified sites 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 ( 6mg total ) 2015 WARFARIN SODIUM 59319631170 Active Domi Rivera MA Acti ve INVOKANA 100 MG ORAL TABS 1 tablet orally daily CANAGLIFLOZIN 21063343358 Active Kathie Juan RPT,RMA Active MINOXIDIL 2.5 MG TABS 1 tablet daily for high blood pressure 10/23 MINOXIDIL 36834213747 Active Mitch Urbina DO Active AMLODIPINE BESYLATE 5 MG TABS 1 tablet by mouth daily AMLODIPINE BESYLATE 93200163213 Active Domi Rivera MA Active MECLIZINE HCL 25 MG TAB 1 po tid 3 days, then 1/2 tab tid 3 days MECLIZINE HCL 15951164295 No Longer Active Corey SEGURA Active ALLOPURINOL 300 MG TABS Take 1 tablet by mouth daily 2 ALLOPURINOL 42898472132 No Longer Active Corey SEGURA Activ e CLONIDINE HCL 0.1 MG TABS 1 po bid 7 days, then 1/2 tab po b id 7 days CLONIDINE HCL 63708487553 No Longer Active Croey SEGURA Active COUMADIN 5 MG TABS 1 tab PO daily WARFARIN SODIUM 88735892574 Active Domi Rivera MA Active COUMADIN 4 MG TABS 1 tablet daily WARFARIN SODI UM 42958235761 No Longer Active Corey SEGURA Active POLYTRIM 60551-1.1 UNIT/ML-% SOLN 1 drop in affected e ye every 3 hours while awake x 7 days POLYMYXIN B-TRIMETHOPRIM 99416559199 N o Longer Active Corey SEGURA Active LOSARTAN POTASSIUM-HCTZ 100-12.5 MG TABS 1 by mouth da rocky for high blood pressure LOSARTAN POTASSIUM-HCTZ 45031951735 Active Domi Rivera MA Active LISINOPRIL-HYDROCHLOROTHIAZIDE 20-12.5 MG TABS 1 tab by mouth da rocky LISINOPRIL-HYDROCHLOROTHIAZIDE 69104444562 No Longer Active Mitch luis DO Active LISINOPRIL 20 MG TABS 1 tab po at HS LISINOPRIL 13473418395 No Longer Active Mitch Urbina DO Active COUMADIN 5 MG TABS 1 by mouth every other day WARFARIN SODIUM 03352770967 No Longer Active Mitch Urbina DO Active COUMADIN 6 MG TABS 1 by mouth every other day WARFARIN SODIUM 54062892500 No Longer Active Mitch Urbina DO Active SIMVASTATIN 40 MG TABS 1 tab daily at bedtime S IMVASTATIN 39964902385 Active Domi Rivera MA Active SIMVASTATIN 20 MG TABS 1 tab daily at bedtime S IMVASTATIN 94333722013 No Longer Active Mitch Urbina DO Active LOVENOX 100 MG/ML SC SOLN One injection twice a day 09/15/15 ENOXAPARIN SODIUM 99508249991 No Longer Active Carmine Navarrete ctive JANUVIA 50 MG TABS Take one by mouth daily DIEGO GLIPTIN PHOSPHATE 30145893343 Active Domi Rivera MA Active JANUVIA 100 MG TABS 1/2 by mouth every day DIEGO GLIPTIN PHOSPHATE 25095880903 No Longer Active Bijal Segal RN Active METFORMIN HCL 500 MG TABS 2 by mouth twice daily METFORMIN HCL 70820928816 Active Kathie Juan RPT,RMA Active GLIMEPIRIDE 4 MG TABS 1 tab po bid GLIMEPIRIDE 078279 04131 Active Kathie Juan RPT,RMA Active COLCRYS 0.6 MG TABS 1 po q 6 hours prn gout pain 03/02 COLCHICINE 55584848304 No Longer Active Camila Reese Active LISINOPRIL 5 MG TABS 1 by mouth every day LISIN OPRIL 31377256791 No Longer Active Nguyen Perez Active KLOR-CON 20 MEQ PACK Take one by mouth daily 8 POTASSIUM CHLORIDE 45509962923 No Longer Active Nguyen Perez Active FUROSEMIDE 40 MG TABS 1 by mouth daily FUROSEMI DE 17026664300 No Longer Active Nguyen Perez Active PROVIGIL 200 MG TABS 1/2 tab po q day MODAFINIL 41422 920125 Active Domi Rivera MA Active PROVIGIL 100 MG TABS Take one by mouth daily MO DAFINIL 55333435043 No Longer Active Mitch Urbina DO Active BACTRIM DS 800-160 MG TAB 1 tab by mouth twice daily 2 TRIMETHOPRIM-SULFAMETHOXAZOLE 51832592762 No Longer Active Renan Hays MD Active FAMOTIDINE 20 MG TABS by mouth twice a day FAMOTI DINE 85092481929 Active Mitch Urbina DO Active ADULT ASPIRIN LOW STRENGTH 81 MG TBDP 1 by mouth every daily ASPIRIN 83878526747 Active Mitch Urbina DO Active METOPROLOL TARTRATE 50 MG TABS 1 by mouth twice daily METOPROLOL TARTRATE 99189686528 Active Domi Rivera MA Active BACTRIM DS 800-160 MG TAB 1 tab by mouth twice daily 2 BACTRIM DS 800-160 MG TAB 454178 TRIMETHOPRIM-SULFAMETHOXAZOLE Inac tive PROVIGIL 100 MG TABS Take one by mouth daily 4 PROVIGIL 100 MG TABS 758865 MODAFINIL Inactive FUROSEMIDE 40 MG TABS 1 by mouth daily FU ROSEMIDE 40 MG TABS 523017 FUROSEMIDE Inactive KLOR-CON 20 MEQ PACK Take one by mouth daily 8 KLOR-CON 20 MEQ PACK 397716 POTASSIUM CHLORIDE Inactive LISINOPRIL 5 MG TABS 1 by mouth every day LISINOPRIL 5 MG TABS 917843 LISINOPRIL Inactive COLCRYS 0.6 MG TABS 1 po q 6 hours prn gout pain 03/02 COLCRYS 0.6 MG TABS 260388 COLCHICINE Inactive JANUVIA 100 MG TABS 1/2 by mouth every day JANUVI A 100 MG TABS SITAGLIPTIN PHOSPHATE Inactive SIMVASTATIN 20 MG TABS 1 tab daily at bedtime SIMVASTATIN 20 MG TABS 371122 SIMVASTATIN Inactive COUMADIN 6 MG TABS 1 by mouth every other day COUMADIN 6 MG TABS 143396 WARFARIN SODIUM Inactive COUMADIN 5 MG TABS 1 by mouth every other day COUMADIN 5 MG TABS 825623 WARFARIN SODIUM Inactive LISINOPRIL 20 MG TABS 1 tab po at HS KOKI NOPRIL 20 MG TABS 477351 LISINOPRIL Inactive LISINOPRIL-HYDROCHLOROTHIAZIDE 20-12.5 MG TABS 1 tab by mouth da rocky LISINOPRIL-HYDROCHLOROTHIAZIDE 20-12.5 MG TABS 409698 LISINOPRIL-HYDROCHLOROTHIAZIDE Inactive POLYTRIM 77769-0.1 UNIT/ML-% SOLN 1 drop in affected e ye every 3 hours while awake x 7 days POLYTRIM 87872-3.1 UNIT/ML-% SOLN 31935 7 POLYMYXIN B-TRIMETHOPRIM Inactive COUMADIN 4 MG TABS 1 tablet daily COUMADIN 4 MG TABS 826871 WARFARIN SODIUM Inactive CLONIDINE HCL 0.1 MG TABS 1 po bid 7 days, then 1/2 tab po b id 7 days CLONIDINE HCL 0.1 MG TABS 157071 CLONIDINE HCL I nactive ALLOPURINOL 300 MG TABS Take 1 tablet by mouth daily 2 ALLOPURINOL 300 MG TABS 517223 ALLOPURINOL Inactive MECLIZINE HCL 25 MG TAB 1 po tid 3 days, then 1/2 tab tid 3 days MECLIZINE HCL 25 MG TAB 035363 MECLIZINE HCL Inactive LOVENOX 100 MG/ML SC SOLN One injection twice a day 20 09/15/15 LOVENOX 100 MG/ML SC SOLN 931564 ENOXAPARIN SODIUM Inactive Vital Signs Date Name [...] - Chem istry sodium, serum 136 mmol/L 375-622 1474/01/14 carbon dioxide, venous blood 25.4 mmol/L 21.0-32 [...] Report: HGBA1C, Prothrombin Time - C oagulation international normalized ratio (INR) 2.1 1.0-3.5 prothrombin time (patient) 17.5 SECS s 11.1-13.4 Lab Report: Prothrombin Time - Coagulati on prothrombin time (patient) 16.9 SECS s 11.1-13.4 [...] ratio (INR) 1.5 1.0-3.5 prothrombin time (patient) 15.8 SECS s 11.1-13.4 international normalized ratio (INR) 1.8 1.0-3.5 international normalized ratio (INR) 1.8 1.0-3.5 prothrombin time (patient) 16.2 SECS s 11.1-13.4 Encounters Code Encounter Date Provider Facility CPT-99183 Level 3 Est. Patient 09:34:30 RESIDENTIAL DRIVER Mitch luis DO [facility] CPT-01160 Level 3 Est. Patient 09:37:15 CDT Mitch luis DO [facility] CPT-70508 Level 3 Est. Patient 17:01:00 RESIDENTIAL DRIVER Mitch luis DO [facility] CPT-90099 Level 3 Est. Patient 13:53:19 RESIDENTIAL DRIVER Mitch luis [facility] CPT-64367 Level 3 Est. Patient 19:19:37 RESIDENTIAL DRIVER Mitch luis [facility] CPT-67923 Level 3 Est. Patient 13:25:53 RESIDENTIAL DRIVER Tavo toure MD [facility] CPT-62775 Level 3 Est. Patient 18:17:28 CDT Mitch luis [facility] CPT-59245 Level 3 Est. Patient 15:22:57 CDT Mitch W L janelle [facility] CPT-78121 Level 3 Est. Patient 18:21:50 CDT Mitch W Nona luis [facility] CPT-54275 Level 3 Est. Patient 18:20:38 CDT Mitch luis [facility] CPT-31399 Level 3 Est. Patient 15:37:55 CDT Mitch luis [facility] CPT-61867 Level 2 Est. Patient 15:54:44 CDT Carmine benton MD [facility] CPT-16447 Level 3 Est. Patient 21:46:01 RESIDENTIAL DRIVER Mitch luis [facility] CPT-44348 Level 3 Est. Patient 22:15:50 CDT Mitch luis [facility] CPT-91089 Level 3 Est. Patient 10:48:15 CDT Mitch luis [facility] CPT-59170 Level 3 Est. Patient 23:20:57 CDT Tavo toure MD [facility] CPT-32719 Level 3 Est. Patient 16:26:13 CDT Mitch Arnol L janelle [facility] Procedures Code Procedure Name Date Entry Date Standard Desc ription CPT-30795 Venipuncture Draw Fee 08:32:21 RESIDENTIAL DRIVER CPT-60603 Venipuncture Draw Fee 09:38:56 RESIDENTIAL DRIVER CPT-14981 No Charge Offi Visit 21:36:07 CDT 1 CPT-00970 Venipuncture Draw Fee 10:13:28 RESIDENTIAL DRIVER CPT-23606 Venipuncture Draw Fee 08:31:11 CDT CPT-52889 Aspir/Inject Med Joint 18:17:28 CDT CPT-27938 Venipuncture Draw Fee 10:13:30 CDT CPT-34470 Venipuncture Draw Fee 08:31:43 RESIDENTIAL DRIVER CPT-JTINJ Joint Injection 18:34:50 CDT CPT-42050 Knee 3V 12:25:09 CDT CPT-08700 Venipuncture Draw Fee 12:15:57 CDT CPT-060 Medical Surveillance Exam 21:31:43 CDT 2011 CPT-00079 Venipuncture Draw Fee 08:32:05 RESIDENTIAL DRIVER CPT-OV Office Visit 18:19:06 CDT
--- OUTSIDE RECORDS SUMMARY | 2020-01-18 12:09 | XMS REPORT | Clinical Summary ---
Author Author Admin, Mitch Leon Organization [facility] Address Unknown Phone Unavailable Allergies, Adverse [...] Coronary atherosclerosis of unspecified type of vessel, rampart or graft EDEMA 782.3 Resolved Mitch Urbina [...] Urbina DO UNSPECIFIED ANEMIA ICD-285.9 Inactive Mitch lius DO Malaise and fatigue ICD-780.79 Inactive Mitch [...] ( 6mg total ) 2015 WARFARIN SODIUM 38445836316 Active Domi Rivera MA Acti ve INVOKANA 100 MG ORAL TABS 1 tablet orally daily CANAGLIFLOZIN 64920267129 Active Kathie Juan RPT,RMA Active MINOXIDIL 2.5 MG TABS 1 tablet daily for high blood pressure 10/23 MINOXIDIL 69025284845 Active Mitch Urbina DO Active AMLODIPINE BESYLATE 5 MG TABS 1 tablet by mouth daily AMLODIPINE BESYLATE 11765252714 Active Domi Rivera MA Active MECLIZINE HCL 25 MG TAB 1 po tid 3 days, then 1/2 tab tid 3 days MECLIZINE HCL 91375012894 No Longer Active Corey SEGURA Active ALLOPURINOL 300 MG TABS Take 1 tablet by mouth daily 2 ALLOPURINOL 69684186274 No Longer Active Corey SEGURA Activ e CLONIDINE HCL 0.1 MG TABS 1 po bid 7 days, then 1/2 tab po b id 7 days CLONIDINE HCL 90412681895 No Longer Active Corey SEGURA Active COUMADIN 5 MG TABS 1 tab PO daily WARFARIN SODIUM 01484265739 Active Domi Rivera MA Active COUMADIN 4 MG TABS 1 tablet daily WARFARIN SODI UM 24968249360 No Longer Active Corey SEGURA Active POLYTRIM 94231-0.1 UNIT/ML-% SOLN 1 drop in affected e ye every 3 hours while awake x 7 days POLYMYXIN B-TRIMETHOPRIM 24026890446 N o Longer Active Corey SEGURA Active LOSARTAN POTASSIUM-HCTZ 100-12.5 MG TABS 1 by mouth da rocky for high blood pressure LOSARTAN POTASSIUM-HCTZ 21190867095 Active Domi Rivera MA Active LISINOPRIL-HYDROCHLOROTHIAZIDE 20-12.5 MG TABS 1 tab by mouth da rocky LISINOPRIL-HYDROCHLOROTHIAZIDE 12450157139 No Longer Active Mitch luis DO Active LISINOPRIL 20 MG TABS 1 tab po at HS LISINOPRIL 78945229420 No Longer Active Mitch Urbina DO Active COUMADIN 5 MG TABS 1 by mouth every other day WARFARIN SODIUM 71242068564 No Longer Active Mitch Urbina DO Active COUMADIN 6 MG TABS 1 by mouth every other day WARFARIN SODIUM 00689516266 No Longer Active Mitch Urbina DO Active COLCRYS 0.6 MG TABS 1 tab qid prn gout COLCHICINE 80723197924 Active Corey SEGURA Active SIMVASTATIN 40 MG TABS 1 tab daily at bedtime S IMVASTATIN 16552561076 Active Domi Rivera MA Active SIMVASTATIN 20 MG TABS 1 tab daily at bedtime S IMVASTATIN 78569756305 No Longer Active Mitch Urbina DO Active LOVENOX 100 MG/ML SC SOLN One injection twice a day 09/15/15 ENOXAPARIN SODIUM 92477169855 No Longer Active Carmine Navarrete ctive JANUVIA 50 MG TABS Take one by mouth daily DIEGO GLIPTIN PHOSPHATE 15555164542 Active Domi Rivera MA Active JANUVIA 100 MG TABS 1/2 by mouth every day DIEGO GLIPTIN PHOSPHATE 11662552634 No Longer Active Bijal Segal RN Active METFORMIN HCL 500 MG TABS 2 by mouth twice daily METFORMIN HCL 95060759116 Active Kathie Juan RPT,RMA Active GLIMEPIRIDE 4 MG TABS 1 tab po bid GLIMEPIRIDE 369567 98677 Active Kathie Juan RPT,RMA Active COLCRYS 0.6 MG TABS 1 po q 6 hours prn gout pain 03/02 COLCHICINE 96788805822 No Longer Active Camila Reese Active LISINOPRIL 5 MG TABS 1 by mouth every day LISIN OPRIL 89853317259 No Longer Active Nguyen Perez Active KLOR-CON 20 MEQ PACK Take one by mouth daily 8 POTASSIUM CHLORIDE 30883061755 No Longer Active Nguyen Perez Active FUROSEMIDE 40 MG TABS 1 by mouth daily FUROSEMI DE 64539961719 No Longer Active Nguyenmolly Perez Active PROVIGIL 200 MG TABS 1/2 tab po q day MODAFINIL 04026 290800 Active Domi Rivera MA Active PROVIGIL 100 MG TABS Take one by mouth daily MO DAFINIL 00356398758 No Longer Active Mitch Urbina DO Active BACTRIM DS 800-160 MG TAB 1 tab by mouth twice daily 2 TRIMETHOPRIM-SULFAMETHOXAZOLE 79721624766 No Longer Active Renan Hays MD Active FAMOTIDINE 20 MG TABS by mouth twice a day FAMOTI DINE 37214196518 Active Mitch Urbina DO Active ADULT ASPIRIN LOW STRENGTH 81 MG TBDP 1 by mouth every daily ASPIRIN 63804872353 Active Mitch Urbina DO Active METOPROLOL TARTRATE 50 MG TABS 1 by mouth twice daily METOPROLOL TARTRATE 49052049998 Active Domi Rivera MA Active BACTRIM DS 800-160 MG TAB 1 tab by mouth twice daily 2 BACTRIM DS 800-160 MG TAB 016867 TRIMETHOPRIM-SULFAMETHOXAZOLE Inac tive PROVIGIL 100 MG TABS Take one by mouth daily 4 PROVIGIL 100 MG TABS 459626 MODAFINIL Inactive FUROSEMIDE 40 MG TABS 1 by mouth daily FU ROSEMIDE 40 MG TABS 198077 FUROSEMIDE Inactive KLOR-CON 20 MEQ PACK Take one by mouth daily 8 KLOR-CON 20 MEQ PACK 418283 POTASSIUM CHLORIDE Inactive LISINOPRIL 5 MG TABS 1 by mouth every day LISINOPRIL 5 MG TABS 349772 LISINOPRIL Inactive COLCRYS 0.6 MG TABS 1 po q 6 hours prn gout pain 03/02 COLCRYS 0.6 MG TABS 484560 COLCHICINE Inactive JANUVIA 100 MG TABS 1/2 by mouth every day JANUVI A 100 MG TABS SITAGLIPTIN PHOSPHATE Inactive SIMVASTATIN 20 MG TABS 1 tab daily at bedtime SIMVASTATIN 20 MG TABS 663153 SIMVASTATIN Inactive COUMADIN 6 MG TABS 1 by mouth every other day COUMADIN 6 MG TABS 132313 WARFARIN SODIUM Inactive COUMADIN 5 MG TABS 1 by mouth every other day COUMADIN 5 MG TABS 488212 WARFARIN SODIUM Inactive LISINOPRIL 20 MG TABS 1 tab po at HS KOKI NOPRIL 20 MG TABS 972662 LISINOPRIL Inactive LISINOPRIL-HYDROCHLOROTHIAZIDE 20-12.5 MG TABS 1 tab by mouth da rcoky LISINOPRIL-HYDROCHLOROTHIAZIDE 20-12.5 MG TABS 122802 LISINOPRIL-HYDROCHLOROTHIAZIDE Inactive POLYTRIM 57146-0.1 UNIT/ML-% SOLN 1 drop in affected e ye every 3 hours while awake x 7 days POLYTRIM 05182-2.1 UNIT/ML-% SOLN 52652 7 POLYMYXIN B-TRIMETHOPRIM Inactive COUMADIN 4 MG TABS 1 tablet daily COUMADIN 4 MG TABS 793427 WARFARIN SODIUM Inactive CLONIDINE HCL 0.1 MG TABS 1 po bid 7 days, then 1/2 tab po b id 7 days CLONIDINE HCL 0.1 MG TABS 532075 CLONIDINE HCL I nactive ALLOPURINOL 300 MG TABS Take 1 tablet by mouth daily 2 ALLOPURINOL 300 MG TABS 644786 ALLOPURINOL Inactive MECLIZINE HCL 25 MG TAB 1 po tid 3 days, then 1/2 tab tid 3 days MECLIZINE HCL 25 MG TAB 452942 MECLIZINE HCL Inactive LOVENOX 100 MG/ML SC SOLN One injection twice a day 09/15/15 LOVENOX 100 MG/ML SC SOLN 868997 ENOXAPARIN SODIUM Inactive Vital Signs Date Name [...] Range Description Chart Maintenance: [facility] [place] [facility] - Chemistry occult blood, stool (E&M) Positive [...] Ag - Chemistry sodium, serum 141 mmol/L 827-604 7281/07/06 potassium, serum 4.4 mmol/L 3.5-5.2 chloride, serum [...] - Chem istry sodium, serum 136 mmol/L 016-784 7866/01/14 carbon dioxide, venous blood 25.4 mmol/L 21.0-32 [...] 7.0 % 4.3-6.0 cholesterol, serum 120 mg/dL 555-272 5118/07/06 triglyceride, serum, fasting 186 mg/dL 30-200 HDL [...] 1.0-3.5 Encounters Code Encounter Date Provider Facility CPT-68192 Level 3 Est. Patient 09:34:30 BUFFING LINE SET UP WORKER Mitch luis [facility] CPT-69832 Level 3 Est. Patient 09:37:15 CDT Mitch luis [facility] CPT-96228 Level 3 Est. Patient 17:01:00 BUFFING LINE SET UP WORKER Mitch luis [facility] CPT-77346 Level 3 Est. Patient 13:53:19 BUFFING LINE SET UP WORKER Mitch luis [facility] CPT-18540 Level 3 Est. Patient 19:19:37 BUFFING LINE SET UP WORKER Mitch luis [facility] CPT-28734 Level 3 Est. Patient 13:25:53 BUFFING LINE SET UP WORKER Tavo toure MD [facility] CPT-30093 Level 3 Est. Patient 18:17:28 CDT Mitch luis [facility] CPT-51934 Level 3 Est. Patient 15:22:57 CDT Mitch luis [facility] CPT-44922 Level 3 Est. Patient 18:21:50 CDT Mitch luis [facility] CPT-95014 Level 3 Est. Patient 18:20:38 CDT Mitch luis [facility] CPT-75464 Level 3 Est. Patient 15:37:55 CDT Mitch luis [facility] CPT-42375 Level 2 Est. Patient 15:54:44 CDT Carmine benton MD [facility] CPT-96103 Level 3 Est. Patient 21:46:01 BUFFING LINE SET UP WORKER Mitch luis [facility] CPT-63225 Level 3 Est. Patient 22:15:50 CDT Mitch luis [facility] CPT-63344 Level 3 Est. Patient 10:48:15 CDT Mitch luis [facility] CPT-50771 Level 3 Est. Patient 23:20:57 CDT Tavo toure MD [facility] CPT-78381 Level 3 Est. Patient 16:26:13 CDT Mitch luis [facility] Procedures Code Procedure Name Date Entry Date Standard Desc ription CPT-22014 Venipuncture Draw Fee 08:32:21 BUFFING LINE SET UP WORKER CPT-71805 Venipuncture Draw Fee 09:38:56 BUFFING LINE SET UP WORKER CPT-07074 No Charge Offi Visit 21:36:07 CDT 1 CPT-33581 Venipuncture Draw Fee 10:13:28 BUFFING LINE SET UP WORKER CPT-11650 Venipuncture Draw Fee 08:31:11 CDT CPT-55286 Aspir/Inject Med Joint 18:17:28 CDT CPT-59035 Venipuncture Draw Fee 10:13:30 CDT CPT-78220 Venipuncture Draw Fee 08:31:43 BUFFING LINE SET UP WORKER CPT-JTINJ Joint Injection 18:34:50 CDT CPT-72803 Knee 3V 12:25:09 CDT CPT-33693 Venipuncture Draw Fee 12:15:57 CDT CPT-060 Medical Surveillance Exam 21:31:43 CDT 2011 CPT-75591 Venipuncture Draw Fee 08:32:05 BUFFING LINE SET UP WORKER CPT-OV Office Visit 18:19:06 CDT
--- OUTSIDE RECORDS SUMMARY | 2020-01-18 12:10 | XMS REPORT | Clinical Summary ---
Author Author Admin, Mitch Leon Organization [facility] [employer] Address Unknown Phone Unavailable Allergies, Adverse [...] Coronary atherosclerosis of unspecified type of vessel, navajo or graft EDEMA 782.3 Resolved Mitch Urbina [...] for 1 week, then once daily FLUTICASONE LA OPIONATE 25254709429 Active Becky Sell SIZER HAND Active PREDNISONE 20 MG ORAL TABLET 2 tabs daily for 3 days 1 tab d aily for 3 days PREDNISONE 44297202299 No Longer Active Becky Sell SIZER HAND Active MINOXIDIL 2.5 MG ORAL TABLET 1 tablet twice daily for high b lood pressure MINOXIDIL 64919009510 Active Mitch Urbina DO Ac tive METFORMIN HCL ER 500 MG ORAL TABLET EXTENDED RELEASE 2 4 HOUR 2 tablets by mouth twice daily METFORMIN HCL 21490501358 Active Mitch Urbina DO Active GLIMEPIRIDE 4 MG ORAL TABLET 1 tablet by mouth twice daily f or diabetes GLIMEPIRIDE 96015169060 Active Mitch Urbina DO Active GLIMEPIRIDE 2 MG ORAL TABLET 1 po BID GLIMEPI RIDE 30251481143 No Longer Active Mitch Urbina DO Active AMLODIPINE BESYLATE 5 MG ORAL TABLET 1 tablet by mouth daily AMLODIPINE BESYLATE 29333417381 Active Mitch Urbina DO Active PROVIGIL 200 MG ORAL TABLET 1/2 tab po q day MODA FINIL 28898521423 Active Renee Oconnor LPN Active FAMOTIDINE 20 MG ORAL TABLET by mouth twice a day 2017 FAMOTIDINE 42526568123 No Longer Active Mitch Urbina DO Active COLCRYS 0.6 MG ORAL TABLET 1 tab qid prn gout C OLCHICINE 55320379306 No Longer Active Mitch Urbina DO Active KEFLEX 500 MG ORAL CAPSULE 1 po qid CEPHALEXI N 07728096823 No Longer Active Mitch Urbina DO Active LOSARTAN POTASSIUM 100 MG ORAL TABLET 1 pill by mouth daily, for blood pressure LOSARTAN POTASSIUM 11752292114 Active Mitch Arnol Carlitos VELASQUEZ Active AMLODIPINE BESYLATE 5 MG ORAL TABLET 1 tablet by mouth daily 201 01/20/04 AMLODIPINE BESYLATE 71755141433 No Longer Active Joe fulton APRN Active MITIGARE 0.6 MG ORAL CAPSULE 2 capsules at onset of go ut pain, then take one capsule at 1 hour if symptoms persist. COLCHICINE 59 031866916 Active Mitch Urbina DO Active COUMADIN 1 MG ORAL TABLET 2 tabs orally daily with the 5mg tab to equal 7mg daily WARFARIN SODIUM 49328047048 Active Renee Oconnor LPN Active INVOKANA 100 MG ORAL TABLET 1 tablet orally daily CANAGLIFLOZIN 28001753946 Active Mitch Urbina DO Active MECLIZINE HCL 25 MG ORAL TABLET 1 po tid 3 days, then 1/2 ta b tid 3 days MECLIZINE HCL 70366074025 No Longer Active Corey SEGURA Active ALLOPURINOL 300 MG ORAL TABLET Take 1 tablet by mouth daily 2012 ALLOPURINOL 60144179514 No Longer Active Corey SEGURA Active CLONIDINE HCL 0.1 MG ORAL TABLET 1 po bid 7 days, then 1/2 t ab po bid 7 days CLONIDINE HCL 53415290501 No Longer Active Corey SEGURA Active COUMADIN 5 MG ORAL TABLET 1 tab PO daily WARFAR IN SODIUM 60180319669 Active Renee Oconnor LPN Active COUMADIN 4 MG ORAL TABLET 1 tablet daily WARFAR IN SODIUM 52091312614 No Longer Active Corey SEGURA Active POLYTRIM 94902-5.1 UNIT/ML-% OPHTHALMIC SOLUTION 1 rui p in affected eye every 3 hours while awake x 7 days POLYMYXIN B-TRIMETHOP RIM 45274710196 No Longer Active Corey SEGURA Active LOSARTAN POTASSIUM-HCTZ 100-12.5 MG ORAL TABLET 1 by m outh daily for high blood pressure LOSARTAN POTASSIUM-HCTZ 30648574432 No Longer A ctive Mitch Urbina DO Active LISINOPRIL-HYDROCHLOROTHIAZIDE 20-12.5 MG ORAL TABLET 1 tab by m outh daily LISINOPRIL-HYDROCHLOROTHIAZIDE 35397338508 No Longer Active Mitch Urbina DO Active LISINOPRIL 20 MG ORAL TABLET 1 tab po at HS LIS INOPRIL 94902753519 No Longer Active Mitch Urbina DO Active COUMADIN 5 MG ORAL TABLET 1 by mouth every other day 2 WARFARIN SODIUM 25346136221 No Longer Active Mitch Urbina DO Active COUMADIN 6 MG ORAL TABLET 1 by mouth every other day 2 WARFARIN SODIUM 32274027080 No Longer Active Mitch Urbina DO Active SIMVASTATIN 40 MG ORAL TABLET 1 tab daily at bedtime SIMVASTATIN 64414653427 Active Maria Rivas RN Active SIMVASTATIN 20 MG ORAL TABLET 1 tab daily at bedtime 2 SIMVASTATIN 00172882406 No Longer Active Mitch Urbina DO Active LOVENOX 100 MG/ML SUBCUTANEOUS SOLUTION One injection twice a da y ENOXAPARIN SODIUM 91475322193 No Longer Active Carmine Yusuf MD Active JANUVIA 50 MG ORAL TABLET Take one by mouth daily SITAGLIPTIN PHOSPHATE 37046970349 Active Renee Oconnor LPN Active JANUVIA 100 MG ORAL TABLET 1/2 by mouth every day 2011 SITAGLIPTIN PHOSPHATE 70902897737 No Longer Active Bijal Segal RN Acti ve METFORMIN HCL 500 MG ORAL TABLET 2 by mouth twice daily METFORMIN HCL 21956247270 No Longer Active Renee Oconnor LPN Active COLCRYS 0.6 MG ORAL TABLET 1 po q 6 hours prn gout pain COLCHICINE 80259750282 No Longer Active Camila Reese Active LISINOPRIL 5 MG ORAL TABLET 1 by mouth every day 11/17 LISINOPRIL 25468335273 No Longer Active Nguyen Ana Active KLOR-CON 20 MEQ ORAL PACKET Take one by mouth daily 09/10/08 POTASSIUM CHLORIDE 01525381311 No Longer Active Nguyen Ana Active FUROSEMIDE 40 MG ORAL TABLET 1 by mouth daily F UROSEMIDE 52517868303 No Longer Active Nguyen Ana Active PROVIGIL 100 MG ORAL TABLET Take one by mouth daily 08/20/04 MODAFINIL 18616838810 No Longer Active Mitch Urbina DO Active BACTRIM DS 800-160 MG ORAL TABLET 1 tab by mouth twice daily 201 10/19/09 TRIMETHOPRIM-SULFAMETHOXAZOLE 36347453414 No Longer Active Elian Hays MD Active ADULT ASPIRIN LOW STRENGTH 81 MG ORAL TABLET DISINTEGR ATING 1 by mouth every daily ASPIRIN 25073967928 Active Mitch Urbina DO Ac tive METOPROLOL TARTRATE 50 MG ORAL TABLET 1 by mouth twice daily METOPROLOL TARTRATE 42727252727 Active Maria Rivas RN Ac tive BACTRIM DS 800-160 MG ORAL TABLET 1 tab by mouth twice daily 201 10/19/09 BACTRIM DS 800-160 MG ORAL TABLET 710354 TRIMETHOPRIM-SULFAMETHOXAZOLE Inactive PROVIGIL 100 MG ORAL TABLET Take one by mouth daily 08/20/04 PROVIGIL 100 MG ORAL TABLET 645848 MODAFINIL Inactive FUROSEMIDE 40 MG ORAL TABLET 1 by mouth daily FUROSEMIDE 40 MG ORAL TABLET 709345 FUROSEMIDE Inactive KLOR-CON 20 MEQ ORAL PACKET Take one by mouth daily 09/10/08 KLOR- CON 20 MEQ ORAL PACKET 5669505 POTASSIUM CHLORIDE Inactive LISINOPRIL 5 MG ORAL TABLET 1 by mouth every day 11/17 LISINOPRIL 5 MG ORAL TABLET 213312 LISINOPRIL Inactive COLCRYS 0.6 MG ORAL TABLET 1 po q 6 hours prn gout pain COLCRYS 0.6 MG ORAL TABLET 059969 COLCHICINE Inactive JANUVIA 100 MG ORAL TABLET 1/2 by mouth every day 2011 JANUVIA 100 MG ORAL TABLET SITAGLIPTIN PHOSPHATE Inactive SIMVASTATIN 20 MG ORAL TABLET 1 tab daily at bedtime 2 SIMVASTATIN 20 MG ORAL TABLET 118710 SIMVASTATIN Inactive COUMADIN 6 MG ORAL TABLET 1 by mouth every other day 2 COUMADIN 6 MG ORAL TABLET 978629 WARFARIN SODIUM Inactive COUMADIN 5 MG ORAL TABLET 1 by mouth every other day 2 COUMADIN 5 MG ORAL TABLET 089295 WARFARIN SODIUM Inactive LISINOPRIL 20 MG ORAL TABLET 1 tab po at HS LISINOPRIL 20 MG ORAL TABLET 274974 LISINOPRIL Inactive LISINOPRIL-HYDROCHLOROTHIAZIDE 20-12.5 MG ORAL TABLET 1 tab by m outh daily LISINOPRIL-HYDROCHLOROTHIAZIDE 20-12.5 MG ORAL TABLET 637892 LISINOPRIL-HYDROCHLOROTHIAZIDE Inactive POLYTRIM 62649-8.1 UNIT/ML-% OPHTHALMIC SOLUTION 1 rui p in affected eye every 3 hours while awake x 7 days POLYTRIM 1000 0-0.1 UNIT/ML-% OPHTHALMIC SOLUTION 116453 POLYMYXIN B-TRIMETHOPRIM Inactive COUMADIN 4 MG ORAL TABLET 1 tablet daily COUMADIN 4 MG ORAL TABLET 124137 WARFARIN SODIUM Inactive CLONIDINE HCL 0.1 MG ORAL TABLET 1 po bid 7 days, then 1/2 t ab po bid 7 days CLONIDINE HCL 0.1 MG ORAL TABLET 941569 CLONIDIN E HCL Inactive ALLOPURINOL 300 MG ORAL TABLET Take 1 tablet by mouth daily 2012 ALLOPURINOL 300 MG ORAL TABLET 795179 ALLOPURINOL I nactive MECLIZINE HCL 25 MG ORAL TABLET 1 po tid 3 days, then 1/2 ta b tid 3 days MECLIZINE HCL 25 MG ORAL TABLET 973998 MECLIZINE HCL Inactive AMLODIPINE BESYLATE 5 MG ORAL TABLET 1 tablet by mouth daily 201 01/20/04 AMLODIPINE BESYLATE 5 MG ORAL TABLET 548827 AMLODIPINE BESYLATE Inactive KEFLEX 500 MG ORAL CAPSULE 1 po qid K EFLEX 500 MG ORAL CAPSULE 840800 CEPHALEXIN Inactive COLCRYS 0.6 MG ORAL TABLET 1 tab qid prn gout COLCRYS 0.6 MG ORAL TABLET 514247 COLCHICINE Inactive FAMOTIDINE 20 MG ORAL TABLET by mouth twice a day 2017 FAMOTIDINE 20 MG ORAL TABLET 686479 FAMOTIDINE Inactive GLIMEPIRIDE 2 MG ORAL TABLET 1 po BID GLIMEPIRIDE 2 MG ORAL TABLET 317461 GLIMEPIRIDE Inactive LOVENOX 100 MG/ML SUBCUTANEOUS SOLUTION One injection twice a da y LOVENOX 100 MG/ML SUBCUTANEOUS SOLUTION 210554 ENOXAPAR IN SODIUM Inactive PREDNISONE 20 MG ORAL TABLET 2 tabs daily for 3 days 1 tab d aily for 3 days PREDNISONE 20 MG ORAL TABLET 937844 PREDNISONE Inactive Advance Directives Directive Description Start [...] mg/dL Encounters Code Encounter Date Provider Facility CPT-38118 Level 3 Est. Patient 15:18:36 CDT Becky anderson [facility] CPT-73570 54734-Axy Vst-Est Level IV 10:06:35 CDT Stephy Ambrose [facility] CPT-98972 74953-Dbz Vst-Est Level IV 10:52:00 EMPLOYEE WELLNESS/FITNESS COORDINATOR Stephy Ambrose [facility] CPT-72581 Level 3 Est. Patient 18:25:53 CDT Mitch luis [facility] CPT-49201 Level 3 Est. Patient 19:43:34 CDT Mitch luis [facility] CPT-22633 Level 4 Est. Patient 09:30:18 CDT Mitch luis [facility] CPT-48522 Level 3 Est. Patient 15:10:14 CDT Joe kamara [facility] CPT-76735 Level 3 Est. Patient 15:03:46 CDT Joe kamara [facility] CPT-63471 Level 3 Est. Patient 14:21:06 CDT Mitch luis [facility] CPT-94619 Level 3 Est. Patient 14:52:06 CDT Joe kamara [facility] CPT-85001 Level 3 Est. Patient 09:34:30 EMPLOYEE WELLNESS/FITNESS COORDINATOR Mitch luis [facility] CPT-31489 Level 3 Est. Patient 09:37:15 CDT Mitch luis [facility] CPT-11529 Level 3 Est. Patient 17:01:00 EMPLOYEE WELLNESS/FITNESS COORDINATOR Mitch luis [facility] CPT-55672 Level 3 Est. Patient 13:53:19 EMPLOYEE WELLNESS/FITNESS COORDINATOR Mitch luis [facility] CPT-37655 Level 3 Est. Patient 19:19:37 EMPLOYEE WELLNESS/FITNESS COORDINATOR Mitch luis [facility] CPT-12646 Level 3 Est. Patient 13:25:53 EMPLOYEE WELLNESS/FITNESS COORDINATOR Tavo toure MD [facility] CPT-86507 Level 3 Est. Patient 18:17:28 CDT Mitch luis [facility] CPT-74507 Level 3 Est. Patient 15:22:57 CDT Mitch luis [facility] CPT-93840 Level 3 Est. Patient 18:21:50 CDT Mitch luis [facility] CPT-76570 Level 3 Est. Patient 18:20:38 CDT Mitch luis [facility] CPT-15075 Level 3 Est. Patient 15:37:55 CDT Mitch luis [facility] CPT-62065 Level 2 Est. Patient 15:54:44 CDT Carmine benton MD [facility]-30634 Level 3 Est. Patient 21:46:01 EMPLOYEE WELLNESS/FITNESS COORDINATOR Mitch luis [facility] CPT-33214 Level 3 Est. Patient 22:15:50 CDT Mitch luis [facility] CPT-71080 Level 3 Est. Patient 10:48:15 CDT Mitch luis [facility] CPT-35049 Level 3 Est. Patient 23:20:57 CDT Tavo toure MD [facility] CPT-20910 Level 3 Est. Patient 16:26:13 CDT Mitch luis [facility] Procedures Code Procedure Name Date Entry Date Standard Desc ription CPT-96288 Venipuncture Draw Fee 14:56:20 CDT CPT-JTINJ Asp/Joint Injection 18:47:02 CDT CPT-05968 Venipuncture Draw Fee 09:26:17 CDT CPT-72777 PT/INR - LAB USE ONLY 13:32:49 EMPLOYEE WELLNESS/FITNESS COORDINATOR CPT-16194 Venipuncture Draw Fee 13:32:49 EMPLOYEE WELLNESS/FITNESS COORDINATOR CPT-43840 PT/INR - LAB USE ONLY 10:34:49 EMPLOYEE WELLNESS/FITNESS COORDINATOR CPT-05759 Venipuncture Draw Fee 10:34:48 EMPLOYEE WELLNESS/FITNESS COORDINATOR CPT-46179 PT/INR - LAB USE ONLY 09:22:03 EMPLOYEE WELLNESS/FITNESS COORDINATOR CPT-22719 Venipuncture Draw Fee 09:22:02 EMPLOYEE WELLNESS/FITNESS COORDINATOR CPT-88533 Hemoccult IFOBT - LAB USE ONLY 10:27:22 CDT CPT-63715 Venipuncture Draw Fee 08:27:08 CDT CPT-49459 Liver Profile - LAB USE ONLY 08:27:07 CDT 2 CPT-53845 Microalbumin - LAB USE ONLY 08:27:07 CDT 20 25/05/09 CPT-73703 PT/INR - LAB USE ONLY 08:27:07 CDT CPT-63432 HGBA1C - LAB USE ONLY 08:27:07 CDT CPT-66519 CBC - LAB USE ONLY 08:27:07 CDT CPT-49878 Venipuncture Draw Fee 11:09:14 CDT CPT-44881 Venipuncture Draw Fee 08:32:21 EMPLOYEE WELLNESS/FITNESS COORDINATOR CPT-25584 Venipuncture Draw Fee 09:38:56 EMPLOYEE WELLNESS/FITNESS COORDINATOR CPT-07814 No Charge Offi Visit 21:36:07 CDT 1 CPT-36715 Venipuncture Draw Fee 10:13:28 EMPLOYEE WELLNESS/FITNESS COORDINATOR CPT-63524 Venipuncture Draw Fee 08:31:11 CDT CPT-19116 Aspir/Inject Med Joint 18:17:28 CDT CPT-36808 Venipuncture Draw Fee 10:13:30 CDT CPT-79133 Venipuncture Draw Fee 08:31:43 EMPLOYEE WELLNESS/FITNESS COORDINATOR CPT-JTINJ Joint Injection 18:34:50 CDT CPT-81514 Knee 3V 12:25:09 CDT CPT-13468 Venipuncture Draw Fee 12:15:57 CDT CPT-060 Medical Surveillance Exam 21:31:43 CDT 2011 CPT-19899 Venipuncture Draw Fee 08:32:05 EMPLOYEE WELLNESS/FITNESS COORDINATOR CPT-OV Office Visit 18:19:06 CDT
--- OUTSIDE RECORDS SUMMARY | 2020-01-18 12:10 | XMS REPORT | Clinical Summary ---
Author Author Admin, Mitch Leon Organization [facility] Address Unknown Phone Unavailable Allergies, [...] Coronary atherosclerosis of unspecified type of vessel, fond du lac or graft EDEMA 782.3 Resolved Mitch Urbina [...] ( 6mg total ) 2015 WARFARIN SODIUM 68862514051 Active Jannette Alcides RMA Act juan INVOKANA 100 MG ORAL TABS 1 tablet orally daily CANAGLIFLOZIN 97149063626 Active Kathie Juan RPT,RMA Active MINOXIDIL 2.5 MG TABS 1 tablet daily for high blood pressure 10/23 MINOXIDIL 88186811573 Active Mitch Urbina DO Active AMLODIPINE BESYLATE 5 MG TABS 1 tablet by mouth daily AMLODIPINE BESYLATE 16004399918 Active Domi Rivera MA Active MECLIZINE HCL 25 MG TAB 1 po tid 3 days, then 1/2 tab tid 3 days MECLIZINE HCL 65993392798 No Longer Active Corey SEGURA Active ALLOPURINOL 300 MG TABS Take 1 tablet by mouth daily 2 ALLOPURINOL 48967082958 No Longer Active Corey SEGURA Activ e CLONIDINE HCL 0.1 MG TABS 1 po bid 7 days, then 1/2 tab po b id 7 days CLONIDINE HCL 88069363907 No Longer Active Corey SEGURA Active COUMADIN 5 MG TABS 1 tab PO daily WARFARIN SODIUM 13171026366 Active Domi Rivera MA Active COUMADIN 4 MG TABS 1 tablet daily WARFARIN SODI UM 75709665496 No Longer Active Corey SEGURA Active POLYTRIM 91843-6.1 UNIT/ML-% SOLN 1 drop in affected e ye every 3 hours while awake x 7 days POLYMYXIN B-TRIMETHOPRIM 60755648128 N o Longer Active Corey SEGURA Active LOSARTAN POTASSIUM-HCTZ 100-12.5 MG TABS 1 by mouth da [place] for high blood pressure LOSARTAN POTASSIUM-HCTZ 99055855534 Active Domi Rivera MA Active LISINOPRIL-HYDROCHLOROTHIAZIDE 20-12.5 MG TABS 1 tab by mouth da rocky LISINOPRIL-HYDROCHLOROTHIAZIDE 48538273452 No Longer Active Mitch luis DO Active LISINOPRIL 20 MG TABS 1 tab po at HS LISINOPRIL 88469721583 No Longer Active Mitch Urbina DO Active COUMADIN 5 MG TABS 1 by mouth every other day WARFARIN SODIUM 59037086360 No Longer Active Mitch Urbina DO Active COUMADIN 6 MG TABS 1 by mouth every other day WARFARIN SODIUM 66321858838 No Longer Active Mitch Urbina DO Active COLCRYS 0.6 MG TABS 1 tab qid prn gout COLCHICINE 69837515658 Active Corey SEGURA Active SIMVASTATIN 40 MG TABS 1 tab daily at bedtime S IMVASTATIN 03269950930 Active Domi Rivera MA Active SIMVASTATIN 20 MG TABS 1 tab daily at bedtime S IMVASTATIN 08165221013 No Longer Active Mitch Urbina DO Active LOVENOX 100 MG/ML SC SOLN One injection twice a day 09/15/15 ENOXAPARIN SODIUM 67478797574 No Longer Active Carmine Navarrete ctive JANUVIA 50 MG TABS Take one by mouth daily DIEGO GLIPTIN PHOSPHATE 80753596534 Active Domi Rivera MA Active JANUVIA 100 MG TABS 1/2 by mouth every day DIEGO GLIPTIN PHOSPHATE 41082748559 No Longer Active Bijal Segal RN Active METFORMIN HCL 500 MG TABS 2 by mouth twice daily METFORMIN HCL 87852076236 Active Domi Rivera MA Active GLIMEPIRIDE 4 MG TABS 1 tab po bid GLIMEPIRIDE 299143 78409 Active Domi Rivera MA Active COLCRYS 0.6 MG TABS 1 po q 6 hours prn gout pain 03/02 COLCHICINE 97196249575 No Longer Active Camila Reese Active LISINOPRIL 5 MG TABS 1 by mouth every day LISIN OPRIL 94627787517 No Longer Active Nguyen Perez Active KLOR-CON 20 MEQ PACK Take one by mouth daily 8 POTASSIUM CHLORIDE 56799866321 No Longer Active Nguyen Perez Active FUROSEMIDE 40 MG TABS 1 by mouth daily FUROSEMI DE 71894327446 No Longer Active Nguyen Perez Active PROVIGIL 200 MG TABS 1/2 tab po q day MODAFINIL 80944 580959 Active Domi Rivera MA Active PROVIGIL 100 MG TABS Take one by mouth daily MO DAFINIL 11003841715 No Longer Active Mitch Urbina DO Active BACTRIM DS 800-160 MG TAB 1 tab by mouth twice daily 2 TRIMETHOPRIM-SULFAMETHOXAZOLE 32242560683 No Longer Active Renan Hays MD Active FAMOTIDINE 20 MG TABS by mouth twice a day FAMOTI DINE 30863640640 Active Mitch Urbina DO Active ADULT ASPIRIN LOW STRENGTH 81 MG TBDP 1 by mouth every daily ASPIRIN 25905347990 Active Mitch Urbina DO Active METOPROLOL TARTRATE 50 MG TABS 1 by mouth twice daily METOPROLOL TARTRATE 24957343507 Active Domi Rivera MA Active BACTRIM DS 800-160 MG TAB 1 tab by mouth twice daily 2 BACTRIM DS 800-160 MG TAB 990315 TRIMETHOPRIM-SULFAMETHOXAZOLE Inac tive PROVIGIL 100 MG TABS Take one by mouth daily 4 PROVIGIL 100 MG TABS 057022 MODAFINIL Inactive FUROSEMIDE 40 MG TABS 1 by mouth daily FU ROSEMIDE 40 MG TABS 504699 FUROSEMIDE Inactive KLOR-CON 20 MEQ PACK Take one by mouth daily 8 KLOR-CON 20 MEQ PACK 350056 POTASSIUM CHLORIDE Inactive LISINOPRIL 5 MG TABS 1 by mouth every day LISINOPRIL 5 MG TABS 215525 LISINOPRIL Inactive COLCRYS 0.6 MG TABS 1 po q 6 hours prn gout pain 03/02 COLCRYS 0.6 MG TABS 431298 COLCHICINE Inactive JANUVIA 100 MG TABS 1/2 by mouth every day JANUVI A 100 MG TABS SITAGLIPTIN PHOSPHATE Inactive SIMVASTATIN 20 MG TABS 1 tab daily at bedtime SIMVASTATIN 20 MG TABS 489033 SIMVASTATIN Inactive COUMADIN 6 MG TABS 1 by mouth every other day COUMADIN 6 MG TABS 242782 WARFARIN SODIUM Inactive COUMADIN 5 MG TABS 1 by mouth every other day COUMADIN 5 MG TABS 095207 WARFARIN SODIUM Inactive LISINOPRIL 20 MG TABS 1 tab po at HS KOKI NOPRIL 20 MG TABS 187671 LISINOPRIL Inactive LISINOPRIL-HYDROCHLOROTHIAZIDE 20-12.5 MG TABS 1 tab by mouth da rocky LISINOPRIL-HYDROCHLOROTHIAZIDE 20-12.5 MG TABS 046299 LISINOPRIL-HYDROCHLOROTHIAZIDE Inactive POLYTRIM 91081-3.1 UNIT/ML-% SOLN 1 drop in affected e ye every 3 hours while awake x 7 days POLYTRIM 15466-7.1 UNIT/ML-% SOLN 31969 7 POLYMYXIN B-TRIMETHOPRIM Inactive COUMADIN 4 MG TABS 1 tablet daily COUMADIN 4 MG TABS 776171 WARFARIN SODIUM Inactive CLONIDINE HCL 0.1 MG TABS 1 po bid 7 days, then 1/2 tab po b id 7 days CLONIDINE HCL 0.1 MG TABS 963623 CLONIDINE HCL I nactive ALLOPURINOL 300 MG TABS Take 1 tablet by mouth daily 2 ALLOPURINOL 300 MG TABS 826066 ALLOPURINOL Inactive MECLIZINE HCL 25 MG TAB 1 po tid 3 days, then 1/2 tab tid 3 days MECLIZINE HCL 25 MG TAB 436852 MECLIZINE HCL Inactive LOVENOX 100 MG/ML SC SOLN One injection twice a day 09/15/15 LOVENOX 100 MG/ML SC SOLN 586871 ENOXAPARIN SODIUM Inactive Vital Signs Date Name [...] Range Description Chart Maintenance: Hemoccult added to [facility] - Chemistry occult blood, stool (E&M) Positive Lab Report: CBC - Hematology hemoglobin, blood 12.2 g/dL 13.5-17.5 hematocrit, blood 37.3 % 41.0-53.0 mean corpuscular volume, RBC 82 fL 80-97 mean corpuscular hemoglobin, RBC 26.6 pg 27. 0-31.2 mean corpuscular hemoglobin concentration, RBC 32.6 G/DL % 31.8-35.4 red blood cell distribution width 18.0 % 11 .6-14.8 platelet count 276 10^3/MM^3 10*3/mm3 863-023 5849/01/14 leukocyte count, blood 7.1 10^3/MM^3 10*3/mm3 4.6-10.2 erythrocyte (RBC) count 4.57 10^6/MM^3 10*6/mm3 4.69-6.1 3 Lab Report: CBC W/DIFF - Hematology erythrocyte (RBC) count 4.83 10^6/MM^3 10*6/mm3 4.69-6.1 3 hemoglobin, blood 13.0 g/dL 13.5-17.5 hematocrit, blood 39.5 % 41.0-53.0 mean corpuscular volume, RBC 82 fL 80-97 mean corpuscular hemoglobin, RBC 27.0 pg 27. 0-31.2 mean corpuscular hemoglobin concentration, RBC 33.0 G/DL % 31.8-35.4 red blood cell distribution width 17.2 % 11 .6-14.8 platelet count 283 10^3/MM^3 10*3/mm3 884-401 5608/03/27 lymphocytes as percent of blood leukocytes 19.7 % 20.5-51.1 monocytes as percent of blood leukocytes 7.3 % 1.7-9.3 neutrophils as percent of blood leukocytes 69.3 % 42.2-75.2 leukocyte count, blood 6.2 10^3/MM^3 10*3/mm3 4.6-10.2 Lab Report: CBC, Comp. Metabolic Panel, Prostatic Specific Ag - Chemistry sodium, serum 141 mmol/L 918-895 6219/07/06 potassium, serum 4.4 mmol/L 3.5-5.2 chloride, serum [...] - Chem istry sodium, serum 136 mmol/L 639-193 6862/01/14 carbon dioxide, venous blood 25.4 mmol/L 21.0-32 [...] Report: HGBA1C, Lipid Panel - Chemis try HDL cholesterol, serum 34 mg/dL 32-96 LDL cholesterol, serum 49 mg/dL 0-130 hemoglobin A1C, blood, as % of total hemoglobin 7.0 % 4.3-6.0 cholesterol, serum 120 mg/dL 572-034 6034/07/06 triglyceride, serum, fasting 186 mg/dL 30-200 Lab Report: HGBA1C, Prothrombin Time - C [...] ratio (INR) 1.8 1.0-3.5 prothrombin time (patient) 18.9 SECS s 11.1-13.4 international normalized ratio (INR) 2.4 1.0-3.5 prothrombin time (patient) 18.1 SECS s 11.1-13.4 international normalized ratio (INR) 2.2 1.0-3.5 international normalized ratio (INR) 2.3 1.0-3.5 prothrombin time (patient) 17.1 SECS s 11.1-13.4 international normalized ratio (INR) 2.0 1.0-3.5 prothrombin time (patient) 18.6 SECS s 11.1-13.4 international normalized ratio (INR) 2.6 1.0-3.5 prothrombin time (patient) 20.1 SECS s 11.1-13.4 Encounters Code Encounter Date Provider Facility CPT-59196 Level 3 Est. Patient 09:34:30 SALES REPRESENT[employer]IVE [employer] Mitch luis [facility] CPT-33946 Level 3 Est. Patient 09:37:15 CDT Mitch Arnol L janelle [facility] CPT-44622 Level 3 Est. Patient 17:01:00 SALES REPRESENT[employer]IVE [employer] Mitch Ambrose L janelle [facility] CPT-12426 Level 3 Est. Patient 13:53:19 SALES REPRESENT[employer]IVE [employer] Mitch Arnol L janelle [facility] CPT-10359 Level 3 Est. Patient 19:19:37 SALES REPRESENT[employer]IVE [employer] Mitch Ambrose L janelle [facility] CPT-76152 Level 3 Est. Patient 13:25:53 SALES REPRESENTATIVE [employer] Tavo toure MD [facility] CPT-47850 Level 3 Est. Patient 18:17:28 CDT Mitch Arnol L janelle [facility] CPT-65638 Level 3 Est. Patient 15:22:57 CDT Mitch Arnol luis [facility] CPT-35180 Level 3 Est. Patient 18:21:50 CDT Mitch W L janelle [facility] CPT-08904 Level 3 Est. Patient 18:20:38 CDT Mitch W L janelle [facility] CPT-19377 Level 3 Est. Patient 15:37:55 CDT Mitch W L ee [facility] CPT-86310 Level 2 Est. Patient 15:54:44 CDT Carmine benton MD [facility] CPT-64778 Level 3 Est. Patient 21:46:01 SALES REPRESENT[employer]IVE [employer] Mitch W L janelle [facility] CPT-89792 Level 3 Est. Patient 22:15:50 CDT Mitch luis [facility] CPT-09293 Level 3 Est. Patient 10:48:15 CDT Mitch luis [facility] CPT-09169 Level 3 Est. Patient 23:20:57 CDT Tavo toure MD [facility] CPT-30463 Level 3 Est. 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
--- OUTSIDE RECORDS SUMMARY | 2020-01-18 12:10 | XMS REPORT | Clinical Summary ---
Author Author Admin, Mitch Leon Organization [facility] Address Unknown Phone Unavailable Allergies, Adverse Reactions, [...] Coronary atherosclerosis of unspecified type of vessel, kaw or graft EDEMA 782.3 Resolved Mitch Urbina [...] DO Malaise and fatigue ICD-780.79 Inactive Mitch Urbnia DO Cough, chronic ICD-786.2 Inactive Mitch Tejeda O Sebaceous cyst, infected ICD-706.2 Inactive Mitch Urbina DO Cellulitis ICD-682.9 Inactive Mitch Urbina DO 10/23 Medication List Medication Instructions Start Date Stop Date Generic Name NDC Status Provider Patient Instruction FLUTICASONE PROPIONATE 50 MCG/ACT NASAL SUSPENSION 1 s pray each nostril twice daily for 1 week, then once daily FLUTICASONE SC OPIONATE 59038911100 Active Becky Sell [employer]IDENT [employer] TRAINER Active PREDNISONE 20 MG ORAL TABLET 2 tabs daily for 3 days 1 tab d aily for 3 days PREDNISONE 56025904900 No Longer Active Becky Sell [employer]IDENT [employer]TH[employer] TRAINER Active MINOXIDIL 2.5 MG ORAL TABLET 1 tablet twice daily for high b lood pressure MINOXIDIL 22013196596 Active Mitch Urbina DO Ac tive METFORMIN HCL ER 500 MG ORAL TABLET EXTENDED RELEASE 2 4 HOUR 2 tablets by mouth twice daily METFORMIN HCL 10873411622 Active Mitch Urbina DO Active GLIMEPIRIDE 4 MG ORAL TABLET 1 tablet by mouth twice daily f or diabetes GLIMEPIRIDE 92939161997 Active Mitch Urbina DO Active GLIMEPIRIDE 2 MG ORAL TABLET 1 po BID GLIMEPI RIDE 71620745156 No Longer Active Mitch Urbina DO Active AMLODIPINE BESYLATE 5 MG ORAL TABLET 1 tablet by mouth daily AMLODIPINE BESYLATE 84339832809 Active Mitch Urbina DO Active PROVIGIL 200 MG ORAL TABLET 1/2 tab po q day MODA FINIL 88018598477 Active Renee Oconnor LPN Active FAMOTIDINE 20 MG ORAL TABLET by mouth twice a day 2017 FAMOTIDINE 30239249942 No Longer Active Mitch Urbina DO Active COLCRYS 0.6 MG ORAL TABLET 1 tab qid prn gout C OLCHICINE 11999227647 No Longer Active Mitch Urbina DO Active KEFLEX 500 MG ORAL CAPSULE 1 po qid CEPHALEXI N 61139133617 No Longer Active Mitch Urbina DO Active LOSARTAN POTASSIUM 100 MG ORAL TABLET 1 pill by mouth daily, for blood pressure LOSARTAN POTASSIUM 98800672032 Active Mitch Urbina DO Active AMLODIPINE BESYLATE 5 MG ORAL TABLET 1 tablet by mouth daily 201 01/20/04 AMLODIPINE BESYLATE 18299232882 No Longer Active Joe fulton APRN Active MITIGARE 0.6 MG ORAL CAPSULE 2 capsules at onset of go ut pain, then take one capsule at 1 hour if symptoms persist. COLCHICINE 59 556403891 Active Mitch Urbina DO Active COUMADIN 1 MG ORAL TABLET 2 tabs orally daily with the 5mg tab to equal 7mg daily WARFARIN SODIUM 57107318484 Active Renee Oconnor LPN Active INVOKANA 100 MG ORAL TABLET 1 tablet orally daily CANAGLIFLOZIN 19957162458 Active Mitch Urbina DO Active MECLIZINE HCL 25 MG ORAL TABLET 1 po tid 3 days, then 1/2 ta b tid 3 days MECLIZINE HCL 68582813148 No Longer Active Corey SEGURA Active ALLOPURINOL 300 MG ORAL TABLET Take 1 tablet by mouth daily 2012 ALLOPURINOL 47346992559 No Longer Active Corey SEGURA Active CLONIDINE HCL 0.1 MG ORAL TABLET 1 po bid 7 days, then 1/2 t ab po bid 7 days CLONIDINE HCL 22087973963 No Longer Active Corey SEGURA Active COUMADIN 5 MG ORAL TABLET 1 tab PO daily WARFAR IN SODIUM 71977053029 Active Renee Oconnor LPN Active COUMADIN 4 MG ORAL TABLET 1 tablet daily WARFAR IN SODIUM 98240447428 No Longer Active Corey SEGURA Active POLYTRIM 11947-3.1 UNIT/ML-% OPHTHALMIC SOLUTION 1 rui p in affected eye every 3 hours while awake x 7 days POLYMYXIN B-TRIMETHOP RIM 32037021977 No Longer Active Corey SEGURA Active LOSARTAN POTASSIUM-HCTZ 100-12.5 MG ORAL TABLET 1 by m outh daily for high blood pressure LOSARTAN POTASSIUM-HCTZ 15897059256 No Longer A ctive Mitch Urbina DO Active LISINOPRIL-HYDROCHLOROTHIAZIDE 20-12.5 MG ORAL TABLET 1 tab by m outh daily LISINOPRIL-HYDROCHLOROTHIAZIDE 23755500653 No Longer Active Mitch Urbina DO Active LISINOPRIL 20 MG ORAL TABLET 1 tab po at HS LIS INOPRIL 39528186480 No Longer Active Mitch Urbina DO Active COUMADIN 5 MG ORAL TABLET 1 by mouth every other day 2 WARFARIN SODIUM 13055440672 No Longer Active Mitch Urbina DO Active COUMADIN 6 MG ORAL TABLET 1 by mouth every other day 2 WARFARIN SODIUM 31114304274 No Longer Active Mitch Urbina DO Active SIMVASTATIN 40 MG ORAL TABLET 1 tab daily at bedtime SIMVASTATIN 11008462042 Active Maria Rivas RN Active SIMVASTATIN 20 MG ORAL TABLET 1 tab daily at bedtime 2 SIMVASTATIN 40468587051 No Longer Active Mitch Urbina DO Active LOVENOX 100 MG/ML SUBCUTANEOUS SOLUTION One injection twice a da y ENOXAPARIN SODIUM 49524037928 No Longer Active Carmine Yusuf MD Active JANUVIA 50 MG ORAL TABLET Take one by mouth daily SITAGLIPTIN PHOSPHATE 64982920001 Active Renee Oconnor LPN Active JANUVIA 100 MG ORAL TABLET 1/2 by mouth every day 2011 SITAGLIPTIN PHOSPHATE 74277429106 No Longer Active Bijal Segal RN Acti ve METFORMIN HCL 500 MG ORAL TABLET 2 by mouth twice daily METFORMIN HCL 03809681120 No Longer Active Renee Oconnor LPN Active COLCRYS 0.6 MG ORAL TABLET 1 po q 6 hours prn gout pain COLCHICINE 74381142671 No Longer Active Camila Reese Active LISINOPRIL 5 MG ORAL TABLET 1 by mouth every day 11/17 LISINOPRIL 47846523675 No Longer Active Nguyen Ana Active KLOR-CON 20 MEQ ORAL PACKET Take one by mouth daily 09/10/08 POTASSIUM CHLORIDE 59745853034 No Longer Active Nguyen Ana Active FUROSEMIDE 40 MG ORAL TABLET 1 by mouth daily F UROSEMIDE 96254330142 No Longer Active Nguyen Ana Active PROVIGIL 100 MG ORAL TABLET Take one by mouth daily 08/20/04 MODAFINIL 69432406964 No Longer Active Mitch Urbina DO Active BACTRIM DS 800-160 MG ORAL TABLET 1 tab by mouth twice daily 201 10/19/09 TRIMETHOPRIM-SULFAMETHOXAZOLE 27393859589 No Longer Active Elian Hays MD Active ADULT ASPIRIN LOW STRENGTH 81 MG ORAL TABLET DISINTEGR ATING 1 by mouth every daily ASPIRIN 70793928738 Active Mitch Urbina DO Ac tive METOPROLOL TARTRATE 50 MG ORAL TABLET 1 by mouth twice daily METOPROLOL TARTRATE 47425156260 Active Maria Rivas RN Ac tive BACTRIM DS 800-160 MG ORAL TABLET 1 tab by mouth twice daily 201 10/19/09 BACTRIM DS 800-160 MG ORAL TABLET 503548 TRIMETHOPRIM-SULFAMETHOXAZOLE Inactive PROVIGIL 100 MG ORAL TABLET Take one by mouth daily 08/20/04 PROVIGIL 100 MG ORAL TABLET 020147 MODAFINIL Inactive FUROSEMIDE 40 MG ORAL TABLET 1 by mouth daily FUROSEMIDE 40 MG ORAL TABLET 532368 FUROSEMIDE Inactive KLOR-CON 20 MEQ ORAL PACKET Take one by mouth daily 09/10/08 KLOR- CON 20 MEQ ORAL PACKET 9428620 POTASSIUM CHLORIDE Inactive LISINOPRIL 5 MG ORAL TABLET 1 by mouth every day 11/17 LISINOPRIL 5 MG ORAL TABLET 823830 LISINOPRIL Inactive COLCRYS 0.6 MG ORAL TABLET 1 po q 6 hours prn gout pain COLCRYS 0.6 MG ORAL TABLET 530673 COLCHICINE Inactive JANUVIA 100 MG ORAL TABLET 1/2 by mouth every day 2011 JANUVIA 100 MG ORAL TABLET SITAGLIPTIN PHOSPHATE Inactive SIMVASTATIN 20 MG ORAL TABLET 1 tab daily at bedtime 2 SIMVASTATIN 20 MG ORAL TABLET 412262 SIMVASTATIN Inactive COUMADIN 6 MG ORAL TABLET 1 by mouth every other day 2 COUMADIN 6 MG ORAL TABLET 908802 WARFARIN SODIUM Inactive COUMADIN 5 MG ORAL TABLET 1 by mouth every other day 2 COUMADIN 5 MG ORAL TABLET 090034 WARFARIN SODIUM Inactive LISINOPRIL 20 MG ORAL TABLET 1 tab po at HS LISINOPRIL 20 MG ORAL TABLET 292147 LISINOPRIL Inactive LISINOPRIL-HYDROCHLOROTHIAZIDE 20-12.5 MG ORAL TABLET 1 tab by m outh daily LISINOPRIL-HYDROCHLOROTHIAZIDE 20-12.5 MG ORAL TABLET 976173 LISINOPRIL-HYDROCHLOROTHIAZIDE Inactive POLYTRIM 89741-8.1 UNIT/ML-% OPHTHALMIC SOLUTION 1 rui p in affected eye every 3 hours while awake x 7 days POLYTRIM 1000 0-0.1 UNIT/ML-% OPHTHALMIC SOLUTION 398541 POLYMYXIN B-TRIMETHOPRIM Inactive COUMADIN 4 MG ORAL TABLET 1 tablet daily COUMADIN 4 MG ORAL TABLET 594201 WARFARIN SODIUM Inactive CLONIDINE HCL 0.1 MG ORAL TABLET 1 po bid 7 days, then 1/2 t ab po bid 7 days CLONIDINE HCL 0.1 MG ORAL TABLET 254310 CLONIDIN E HCL Inactive ALLOPURINOL 300 MG ORAL TABLET Take 1 tablet by mouth daily 2012 ALLOPURINOL 300 MG ORAL TABLET 186776 ALLOPURINOL I nactive MECLIZINE HCL 25 MG ORAL TABLET 1 po tid 3 days, then 1/2 ta b tid 3 days MECLIZINE HCL 25 MG ORAL TABLET 071395 MECLIZINE HCL Inactive AMLODIPINE BESYLATE 5 MG ORAL TABLET 1 tablet by mouth daily 201 01/20/04 AMLODIPINE BESYLATE 5 MG ORAL TABLET 086565 AMLODIPINE BESYLATE Inactive KEFLEX 500 MG ORAL CAPSULE 1 po qid K EFLEX 500 MG ORAL CAPSULE 410973 CEPHALEXIN Inactive COLCRYS 0.6 MG ORAL TABLET 1 tab qid prn gout COLCRYS 0.6 MG ORAL TABLET 583755 COLCHICINE Inactive FAMOTIDINE 20 MG ORAL TABLET by mouth twice a day 2017 FAMOTIDINE 20 MG ORAL TABLET 485599 FAMOTIDINE Inactive GLIMEPIRIDE 2 MG ORAL TABLET 1 po BID GLIMEPIRIDE 2 MG ORAL TABLET 492710 GLIMEPIRIDE Inactive LOVENOX 100 MG/ML SUBCUTANEOUS SOLUTION One injection twice a da y LOVENOX 100 MG/ML SUBCUTANEOUS SOLUTION 527680 ENOXAPAR IN SODIUM Inactive PREDNISONE 20 MG ORAL TABLET 2 tabs daily for 3 days 1 tab d aily for 3 days PREDNISONE 20 MG ORAL TABLET 778446 PREDNISONE Inactive Advance Directives Directive Description Start [...] mg/dL Encounters Code Encounter Date Provider Facility CPT-67104 Level 3 Est. Patient 15:18:36 CDT Becky Se anderson [facility] CPT-00604 [id number] Vst-Est Level IV 10:06:35 CDT Stephy Ambrose [facility] CPT-15160 [id number] Vst-Est Level IV 10:52:00 GENETICS NURSE Stephy Ambrose [facility] CPT-10074 Level 3 Est. Patient 18:25:53 CDT Mitch luis [facility] CPT-50497 Level 3 Est. Patient 19:43:34 CDT Mitch luis [facility] CPT-47544 Level 4 Est. Patient 09:30:18 CDT Mitch luis [facility] CPT-47454 Level 3 Est. Patient 15:10:14 CDT Joe kamara [facility] CPT-64301 Level 3 Est. Patient 15:03:46 CDT Joe kamara [facility] CPT-20223 Level 3 Est. Patient 14:21:06 CDT Mitch luis [facility] CPT-99156 Level 3 Est. Patient 14:52:06 CDT Joe kamara [facility] CPT-13228 Level 3 Est. Patient 09:34:30 GENETICS NURSE Mitch luis [facility] CPT-61060 Level 3 Est. Patient 09:37:15 CDT Mitch luis [facility] CPT-86476 Level 3 Est. Patient 17:01:00 GENETICS NURSE Mitch luis [facility] CPT-09164 Level 3 Est. Patient 13:53:19 GENETICS NURSE Mitch luis [facility] CPT-97492 Level 3 Est. Patient 19:19:37 GENETICS NURSE Mitch luis [facility] CPT-29621 Level 3 Est. Patient 13:25:53 GENETICS NURSE Tavo toure MD [facility] CPT-54498 Level 3 Est. Patient 18:17:28 CDT Mitch luis [facility] CPT-74851 Level 3 Est. Patient 15:22:57 CDT Mitch luis [facility] CPT-85388 Level 3 Est. Patient 18:21:50 CDT Mitch luis [facility] CPT-30708 Level 3 Est. Patient 18:20:38 CDT Mitch luis [facility] CPT-29628 Level 3 Est. Patient 15:37:55 CDT Mitch luis [facility] CPT-00886 Level 2 Est. Patient 15:54:44 CDT Carmine benton MD [facility]-17299 Level 3 Est. Patient 21:46:01 GENETICS NURSE Mitch luis [facility] CPT-62186 Level 3 Est. Patient 22:15:50 CDT Mitch luis [facility] CPT-90466 Level 3 Est. Patient 10:48:15 CDT Mitch luis [facility] CPT-70311 Level 3 Est. Patient 23:20:57 CDT Tavo toure MD [facility] CPT-62911 Level 3 Est. Patient 16:26:13 CDT Mitch luis [facility] Procedures Code Procedure Name Date Entry Date Standard Desc ription CPT-80545 Venipuncture Draw Fee 14:56:20 CDT CPT-JTINJ Asp/Joint Injection 18:47:02 CDT CPT-48962 Venipuncture Draw Fee 09:26:17 CDT CPT-24482 PT/INR - LAB USE ONLY 13:32:49 GENETICS NURSE CPT-02232 Venipuncture Draw Fee 13:32:49 GENETICS NURSE CPT-31932 PT/INR - LAB USE ONLY 10:34:49 GENETICS NURSE CPT-99936 Venipuncture Draw Fee 10:34:48 GENETICS NURSE CPT-69388 PT/INR - LAB USE ONLY 09:22:03 GENETICS NURSE CPT-71762 Venipuncture Draw Fee 09:22:02 GENETICS NURSE CPT-08255 Hemoccult IFOBT - LAB USE ONLY 10:27:22 CDT CPT-41326 Venipuncture Draw Fee 08:27:08 CDT CPT-64363 Liver Profile - LAB USE ONLY 08:27:07 CDT 2 CPT-31627 Microalbumin - LAB USE ONLY 08:27:07 CDT 20 25/05/09 CPT-30754 PT/INR - LAB USE ONLY 08:27:07 CDT CPT-95869 HGBA1C - LAB USE ONLY 08:27:07 CDT CPT-40500 CBC - LAB USE ONLY 08:27:07 CDT CPT-83183 Venipuncture Draw Fee 11:09:14 CDT CPT-10514 Venipuncture Draw Fee 08:32:21 GENETICS NURSE CPT-63428 Venipuncture Draw Fee 09:38:56 GENETICS NURSE CPT-43940 No Charge Offi Visit 21:36:07 CDT 1 CPT-95436 Venipuncture Draw Fee 10:13:28 GENETICS NURSE CPT-51784 Venipuncture Draw Fee 08:31:11 CDT CPT-25695 Aspir/Inject Med Joint 18:17:28 CDT CPT-06440 Venipuncture Draw Fee 10:13:30 CDT CPT-31308 Venipuncture Draw Fee 08:31:43 GENETICS NURSE CPT-JTINJ Joint Injection 18:34:50 CDT CPT-34307 Knee 3V 12:25:09 CDT CPT-36999 Venipuncture Draw Fee 12:15:57 CDT CPT-060 Medical Surveillance Exam 21:31:43 CDT 2011 CPT-76023 Venipuncture Draw Fee 08:32:05 GENETICS NURSE CPT-OV Office Visit 18:19:06 CDT
--- OUTSIDE RECORDS SUMMARY | 2020-01-18 12:10 | XMS REPORT | Clinical Summary ---
Author Author Admin, Mitch Leon Organization [facility] Address Unknown Phone Unavailable Allergies, Adverse Reactions, [...] Coronary atherosclerosis of unspecified type of vessel, elim ira or graft EDEMA 782.3 Resolved Mitch Urbina [...] Active Becky Sell A PRN Asthma, unspecified SEROMA ICD-998.13 Inactive Mitch Urbina DO [...] DO 10/23 CELLULITIS, GROIN, LEFT ICD-682.2 Inactive oZya serra Arnol Urbina DO Medication List Medication Instructions Start Date Stop Date Generic Name NDC Status Provider Patient Instruction FLUTICASONE PROPIONATE 50 MCG/ACT NASAL SUSPENSION 1 s pray each nostril twice daily for 1 week, then once daily FLUTICASONE MA OPIONATE [id number] Active Becky Sell TELETYPESETTER Active PREDNISONE 20 MG ORAL TABLET 2 tabs daily for 3 days 1 tab d aily for 3 days PREDNISONE 99820624782 No Longer Active Becky Sell TELETYPESETTER Active MINOXIDIL 2.5 MG ORAL TABLET 1 tablet twice daily for high b lood pressure MINOXIDIL 66982703728 Active Mitch Urbina DO Ac tive METFORMIN HCL ER 500 MG ORAL TABLET EXTENDED RELEASE 2 4 HOUR 2 tablets by mouth twice daily METFORMIN HCL 39966341685 Active Mitch Urbina DO Active GLIMEPIRIDE 4 MG ORAL TABLET 1 tablet by mouth twice daily f or diabetes GLIMEPIRIDE 23052285547 Active Mitch Urbina DO Active GLIMEPIRIDE 2 MG ORAL TABLET 1 po BID GLIMEPI RIDE 65492726537 No Longer Active Mitch Urbina DO Active AMLODIPINE BESYLATE 5 MG ORAL TABLET 1 tablet by mouth daily AMLODIPINE BESYLATE 10906672933 Active Mitch Urbina DO Active PROVIGIL 200 MG ORAL TABLET 1/2 tab po q day MODA FINIL 47748115141 Active Renee Oconnor LPN Active FAMOTIDINE 20 MG ORAL TABLET by mouth twice a day 2017 FAMOTIDINE 14202970000 No Longer Active Mitch Urbina DO Active COLCRYS 0.6 MG ORAL TABLET 1 tab qid prn gout C OLCHICINE 51328765318 No Longer Active Mitch Ubrina DO Active KEFLEX 500 MG ORAL CAPSULE 1 po qid CEPHALEXI N 48231432524 No Longer Active Mitch Urbina DO Active LOSARTAN POTASSIUM 100 MG ORAL TABLET 1 pill by mouth daily, for blood pressure LOSARTAN POTASSIUM 03595233356 Active Mitch Arnol Carlitos VELASQUEZ Active AMLODIPINE BESYLATE 5 MG ORAL TABLET 1 tablet by mouth daily 201 01/20/04 AMLODIPINE BESYLATE 88389966160 No Longer Active Joe fulton APRN Active MITIGARE 0.6 MG ORAL CAPSULE 2 capsules at onset of go ut pain, then take one capsule at 1 hour if symptoms persist. COLCHICINE 59 049988976 Active Mitch Urbina DO Active COUMADIN 1 MG ORAL TABLET 2 tabs orally daily with the 5mg tab to equal 7mg daily WARFARIN SODIUM 51205483009 Active Renee Oconnor LPN Active INVOKANA 100 MG ORAL TABLET 1 tablet orally daily CANAGLIFLOZIN 97452092106 Active Mitch Urbina DO Active MECLIZINE HCL 25 MG ORAL TABLET 1 po tid 3 days, then 1/2 ta b tid 3 days MECLIZINE HCL 55040477313 No Longer Active Corey SEGURA Active ALLOPURINOL 300 MG ORAL TABLET Take 1 tablet by mouth daily 2012 ALLOPURINOL 81862382492 No Longer Active Corey SEGURA Active CLONIDINE HCL 0.1 MG ORAL TABLET 1 po bid 7 days, then 1/2 t ab po bid 7 days CLONIDINE HCL 96392437246 No Longer Active Corey SEGURA Active COUMADIN 5 MG ORAL TABLET 1 tab PO daily WARFAR IN SODIUM 74995056248 Active Renee Oconnor LPN Active COUMADIN 4 MG ORAL TABLET 1 tablet daily WARFAR IN SODIUM 07534618564 No Longer Active Corey SEGURA Active POLYTRIM 99031-9.1 UNIT/ML-% OPHTHALMIC SOLUTION 1 rui p in affected eye every 3 hours while awake x 7 days POLYMYXIN B-TRIMETHOP RIM 75866336623 No Longer Active Corey SEGURA Active LOSARTAN POTASSIUM-HCTZ 100-12.5 MG ORAL TABLET 1 by m outh daily for high blood pressure LOSARTAN POTASSIUM-HCTZ 55599307489 No Longer A ctive Mitch Urbina DO Active LISINOPRIL-HYDROCHLOROTHIAZIDE 20-12.5 MG ORAL TABLET 1 tab by m outh daily LISINOPRIL-HYDROCHLOROTHIAZIDE 54621094145 No Longer Active Mitch Urbina DO Active LISINOPRIL 20 MG ORAL TABLET 1 tab po at HS LIS INOPRIL 27214531996 No Longer Active Mitch Urbina DO Active COUMADIN 5 MG ORAL TABLET 1 by mouth every other day 2 WARFARIN SODIUM 99561629644 No Longer Active Mitch Urbina DO Active COUMADIN 6 MG ORAL TABLET 1 by mouth every other day 2 WARFARIN SODIUM 52041786555 No Longer Active Mitch Urbina DO Active SIMVASTATIN 40 MG ORAL TABLET 1 tab daily at bedtime SIMVASTATIN 40439238343 Active Maria Rivas RN Active SIMVASTATIN 20 MG ORAL TABLET 1 tab daily at bedtime 2 SIMVASTATIN 49964895329 No Longer Active Mitch Urbina DO Active LOVENOX 100 MG/ML SUBCUTANEOUS SOLUTION One injection twice a da y ENOXAPARIN SODIUM 07095812845 No Longer Active Carmine Yusuf MD Active JANUVIA 50 MG ORAL TABLET Take one by mouth daily SITAGLIPTIN PHOSPHATE 79199484346 Active Renee Oconnor LPN Active JANUVIA 100 MG ORAL TABLET 1/2 by mouth every day 2011 SITAGLIPTIN PHOSPHATE 60015181628 No Longer Active Bijal Segal RN Acti ve METFORMIN HCL 500 MG ORAL TABLET 2 by mouth twice daily METFORMIN HCL 49665812865 No Longer Active Renee Oconnor LPN Active COLCRYS 0.6 MG ORAL TABLET 1 po q 6 hours prn gout pain COLCHICINE 51267735836 No Longer Active Camila Reese Active LISINOPRIL 5 MG ORAL TABLET 1 by mouth every day 11/17 LISINOPRIL 43676927605 No Longer Active Nguyen Ana Active KLOR-CON 20 MEQ ORAL PACKET Take one by mouth daily 09/10/08 POTASSIUM CHLORIDE 14548073873 No Longer Active Nguyen Ana Active FUROSEMIDE 40 MG ORAL TABLET 1 by mouth daily F UROSEMIDE 54292513272 No Longer Active Nguyen Ana Active PROVIGIL 100 MG ORAL TABLET Take one by mouth daily 08/20/04 MODAFINIL 83474888568 No Longer Active Mitch Urbina DO Active BACTRIM DS 800-160 MG ORAL TABLET 1 tab by mouth twice daily 201 10/19/09 TRIMETHOPRIM-SULFAMETHOXAZOLE 72353993939 No Longer Active Elian Hays MD Active ADULT ASPIRIN LOW STRENGTH 81 MG ORAL TABLET DISINTEGR ATING 1 by mouth every daily ASPIRIN 89972736461 Active Mitch Urbina DO Ac tive METOPROLOL TARTRATE 50 MG ORAL TABLET 1 by mouth twice daily METOPROLOL TARTRATE 75407719335 Active Maria Rivas RN Ac tive BACTRIM DS 800-160 MG ORAL TABLET 1 tab by mouth twice daily 201 10/19/09 BACTRIM DS 800-160 MG ORAL TABLET 453596 TRIMETHOPRIM-SULFAMETHOXAZOLE Inactive PROVIGIL 100 MG ORAL TABLET Take one by mouth daily 08/20/04 PROVIGIL 100 MG ORAL TABLET 819799 MODAFINIL Inactive FUROSEMIDE 40 MG ORAL TABLET 1 by mouth daily FUROSEMIDE 40 MG ORAL TABLET 780810 FUROSEMIDE Inactive KLOR-CON 20 MEQ ORAL PACKET Take one by mouth daily 09/10/08 KLOR- CON 20 MEQ ORAL PACKET 4887783 POTASSIUM CHLORIDE Inactive LISINOPRIL 5 MG ORAL TABLET 1 by mouth every day 11/17 LISINOPRIL 5 MG ORAL TABLET 553695 LISINOPRIL Inactive COLCRYS 0.6 MG ORAL TABLET 1 po q 6 hours prn gout pain COLCRYS 0.6 MG ORAL TABLET 224494 COLCHICINE Inactive JANUVIA 100 MG ORAL TABLET 1/2 by mouth every day 2011 JANUVIA 100 MG ORAL TABLET SITAGLIPTIN PHOSPHATE Inactive SIMVASTATIN 20 MG ORAL TABLET 1 tab daily at bedtime 2 SIMVASTATIN 20 MG ORAL TABLET 455294 SIMVASTATIN Inactive COUMADIN 6 MG ORAL TABLET 1 by mouth every other day 2 COUMADIN 6 MG ORAL TABLET 561852 WARFARIN SODIUM Inactive COUMADIN 5 MG ORAL TABLET 1 by mouth every other day 2 COUMADIN 5 MG ORAL TABLET 173213 WARFARIN SODIUM Inactive LISINOPRIL 20 MG ORAL TABLET 1 tab po at HS LISINOPRIL 20 MG ORAL TABLET 040955 LISINOPRIL Inactive LISINOPRIL-HYDROCHLOROTHIAZIDE 20-12.5 MG ORAL TABLET 1 tab by m outh daily LISINOPRIL-HYDROCHLOROTHIAZIDE 20-12.5 MG ORAL TABLET 959941 LISINOPRIL-HYDROCHLOROTHIAZIDE Inactive POLYTRIM 43733-8.1 UNIT/ML-% OPHTHALMIC SOLUTION 1 rui p in affected eye every 3 hours while awake x 7 days POLYTRIM 1000 0-0.1 UNIT/ML-% OPHTHALMIC SOLUTION 467448 POLYMYXIN B-TRIMETHOPRIM Inactive COUMADIN 4 MG ORAL TABLET 1 tablet daily COUMADIN 4 MG ORAL TABLET 311806 WARFARIN SODIUM Inactive CLONIDINE HCL 0.1 MG ORAL TABLET 1 po bid 7 days, then 1/2 t ab po bid 7 days CLONIDINE HCL 0.1 MG ORAL TABLET 627974 CLONIDIN E HCL Inactive ALLOPURINOL 300 MG ORAL TABLET Take 1 tablet by mouth daily 2012 ALLOPURINOL 300 MG ORAL TABLET 640792 ALLOPURINOL I nactive MECLIZINE HCL 25 MG ORAL TABLET 1 po tid 3 days, then 1/2 ta b tid 3 days MECLIZINE HCL 25 MG ORAL TABLET 096216 MECLIZINE HCL Inactive AMLODIPINE BESYLATE 5 MG ORAL TABLET 1 tablet by mouth daily 201 01/20/04 AMLODIPINE BESYLATE 5 MG ORAL TABLET 740607 AMLODIPINE BESYLATE Inactive KEFLEX 500 MG ORAL CAPSULE 1 po qid K EFLEX 500 MG ORAL CAPSULE 158031 CEPHALEXIN Inactive COLCRYS 0.6 MG ORAL TABLET 1 tab qid prn gout COLCRYS 0.6 MG ORAL TABLET 812629 COLCHICINE Inactive FAMOTIDINE 20 MG ORAL TABLET by mouth twice a day 2017 FAMOTIDINE 20 MG ORAL TABLET 655660 FAMOTIDINE Inactive GLIMEPIRIDE 2 MG ORAL TABLET 1 po BID GLIMEPIRIDE 2 MG ORAL TABLET 271647 GLIMEPIRIDE Inactive LOVENOX 100 MG/ML SUBCUTANEOUS SOLUTION One injection twice a da y LOVENOX 100 MG/ML SUBCUTANEOUS SOLUTION 547058 ENOXAPAR IN SODIUM Inactive PREDNISONE 20 MG ORAL TABLET 2 tabs daily for 3 days 1 tab d aily for 3 days PREDNISONE 20 MG ORAL TABLET 026850 PREDNISONE Inactive Advance Directives Directive Description Start [...] W/RATIO - Hematology mean corpuscular volume, RBC 85 fL 80-97 mean corpuscular hemoglobin, RBC 26.6 pg 27. 0-31.2 mean corpuscular hemoglobin concentration, RBC 31.4 G/DL % 31.8-35.4 red blood cell distribution width 13.9 % 11 .6-14.8 platelet count 256 10^3/MM^3 10*3/mm3 717-944 9378/03/29 hematocrit, blood 44.5 % 40.0-54.0 hemoglobin, blood 14.0 g/dL 14.0-18.0 erythrocyte (RBC) count 5.26 10^6/MM^3 10*6/mm3 4.50-6.5 0 leukocyte count, blood 6.7 10^3/MM^3 10*3/mm3 4.6-10.2 Lab Report: CBC, MICROALB/CREAT [...] mg/dL Encounters Code Encounter Date Provider Facility CPT-75883 Level 3 Est. Patient 15:18:36 CDT Becky anderson [facility] CPT-56034 [id number] Vst-Est Level IV 10:06:35 CDT Stephy Ambrose [facility] CPT-94590 [id number] Vst-Est Level IV 10:52:00 [employer] Stephy Ambrose [facility] CPT-31752 Level 3 Est. Patient 18:25:53 CDT Mitch luis [facility] CPT-22849 Level 3 Est. Patient 19:43:34 CDT Mitch luis [facility] CPT-28573 Level 4 Est. Patient 09:30:18 CDT Mitch luis [facility] CPT-55213 Level 3 Est. Patient 15:10:14 CDT Joe kamara [facility] CPT-37535 Level 3 Est. Patient 15:03:46 CDT Joe kamara [facility] CPT-67949 Level 3 Est. Patient 14:21:06 CDT Mitch luis [facility] CPT-45808 Level 3 Est. Patient 14:52:06 CDT Joe kamara [facility] CPT-72868 Level 3 Est. Patient 09:34:30 [employer] Mitch luis [facility] CPT-44787 Level 3 Est. Patient 09:37:15 CDT Mitch luis [facility] CPT-02873 Level 3 Est. Patient 17:01:00 [employer] Mitch luis [facility] CPT-78689 Level 3 Est. Patient 13:53:19 [employer] Mitch luis [facility] CPT-70440 Level 3 Est. Patient 19:19:37 [employer] Mitch luis [facility] CPT-41059 Level 3 Est. Patient 13:25:53 [employer] Tavo toure MD [facility] CPT-25595 Level 3 Est. Patient 18:17:28 CDT Mitch luis [facility] CPT-33966 Level 3 Est. Patient 15:22:57 CDT Mitch luis [facility] CPT-01483 Level 3 Est. Patient 18:21:50 CDT Mitch luis [facility] CPT-65781 Level 3 Est. Patient 18:20:38 CDT Mitch luis [facility] CPT-15263 Level 3 Est. Patient 15:37:55 CDT Mitch luis [facility] CPT-24336 Level 2 Est. Patient 15:54:44 CDT Carmine benton MD [facility]-98176 Level 3 Est. Patient 21:46:01 [employer] Mitch luis [facility] CPT-80342 Level 3 Est. Patient 22:15:50 CDT Mitch luis [facility] CPT-92476 Level 3 Est. Patient 10:48:15 CDT Mitch luis [facility] CPT-65315 Level 3 Est. Patient 23:20:57 CDT Tavo toure MD [facility] CPT-40489 Level 3 Est. Patient 16:26:13 CDT Mitch luis [facility] Procedures Code Procedure Name Date Entry Date Standard Desc ription CPT-94062 Venipuncture Draw Fee 14:56:20 CDT CPT-JTINJ Asp/Joint Injection 18:47:02 CDT CPT-66827 Venipuncture Draw Fee 09:26:17 CDT CPT-05503 PT/INR - LAB USE ONLY 13:32:49 [employer] CPT-10281 Venipuncture Draw Fee 13:32:49 [employer] CPT-08329 PT/INR - LAB USE ONLY 10:34:49 [employer] CPT-24806 Venipuncture Draw Fee 10:34:48 [employer] CPT-16492 PT/INR - LAB USE ONLY 09:22:03 [employer] CPT-26972 Venipuncture Draw Fee 09:22:02 [employer] CPT-20939 Hemoccult IFOBT - LAB USE ONLY 10:27:22 CDT CPT-72991 Venipuncture Draw Fee 08:27:08 CDT CPT-88585 Liver Profile - LAB USE ONLY 08:27:07 CDT 2 CPT-00733 Microalbumin - LAB USE ONLY 08:27:07 CDT 20 25/05/09 CPT-38796 PT/INR - LAB USE ONLY 08:27:07 CDT CPT-87152 HGBA1C - LAB USE ONLY 08:27:07 CDT CPT-74058 CBC - LAB USE ONLY 08:27:07 CDT CPT-96019 Venipuncture Draw Fee 11:09:14 CDT CPT-30847 Venipuncture Draw Fee 08:32:21 [employer] CPT-98706 Venipuncture Draw Fee 09:38:56 [employer] CPT-87548 No Charge Offi Visit 21:36:07 CDT 1 CPT-51275 Venipuncture Draw Fee 10:13:28 [employer] CPT-46914 Venipuncture Draw Fee 08:31:11 CDT CPT-10553 Aspir/Inject Med Joint 18:17:28 CDT CPT-31450 Venipuncture Draw Fee 10:13:30 CDT CPT-74784 Venipuncture Draw Fee 08:31:43 [employer] CPT-JTINJ Joint Injection 18:34:50 CDT CPT-12987 Knee 3V 12:25:09 CDT CPT-77895 Venipuncture Draw Fee 12:15:57 CDT CPT-060 Medical Surveillance Exam 21:31:43 CDT 2011 CPT-16884 Venipuncture Draw Fee 08:32:05 [employer] CPT-OV Office Visit 18:19:06 CDT
--- OUTSIDE RECORDS SUMMARY | 2020-01-18 12:11 | XMS REPORT | Clinical Summary ---
Author Author Admin, Mitch Leon Organization [facility] Address Unknown Phone Unavailable Allergies, Adverse Reactions, [...] Coronary atherosclerosis of unspecified type of vessel, hopi or graft EDEMA 782.3 Resolved Mitch Urbina [...] D O Sebaceous cyst, infected ICD-706.2 Inactive Mithc Urbina DO Cellulitis ICD-682.9 Inactive Mitch Urbina DO 10/23 Medication List Medication Instructions Start Date Stop Date Generic Name NDC Status Provider Patient Instruction GLIMEPIRIDE 2 MG ORAL TABLET 1 po BID GLIMEPIRID E [id number] Active Renee Oconnor LPN Active KEFLEX 500 MG ORAL CAPSULE 1 po qid CEPHALEXI N 11088562551 No Longer Active Mitch Urbina DO Active LOSARTAN POTASSIUM 100 MG ORAL TABLET 1 pill by mouth daily, for blood pressure LOSARTAN POTASSIUM 79435364043 Active Ana Wallace Active AMLODIPINE BESYLATE 5 MG ORAL TABLET 1 tablet by mouth daily 201 01/20/04 AMLODIPINE BESYLATE 86050923766 No Longer Active Joe fulton APRN Active MITIGARE 0.6 MG ORAL CAPSULE 2 capsules at onset of go ut pain, then take one capsule at 1 hour if symptoms persist. COLCHICINE 59 718150772 Active Mitch Urbina DO Active COUMADIN 1 MG ORAL TABLET 2 tabs orally daily with the 5mg tab to equal 7mg daily WARFARIN SODIUM 68552443817 Active Ana Wallace Active COLCRYS 0.6 MG ORAL TABLET 1 tab qid prn gout C OLCHICINE 34848286540 Active Norma Cazares Active INVOKANA 100 MG ORAL TABLET 1 tablet orally daily CANAGLIFLOZIN 36725323469 Active Mitch Urbina DO Active MINOXIDIL 2.5 MG ORAL TABLET 1 tablet daily for high blood press ure MINOXIDIL 04892449431 Active Mitch Urbina DO Active MECLIZINE HCL 25 MG ORAL TABLET 1 po tid 3 days, then 1/2 ta b tid 3 days MECLIZINE HCL 68744692762 No Longer Active Corey SEGURA Active ALLOPURINOL 300 MG ORAL TABLET Take 1 tablet by mouth daily 2012 ALLOPURINOL 23082914772 No Longer Active Corey SEGURA Active CLONIDINE HCL 0.1 MG ORAL TABLET 1 po bid 7 days, then 1/2 t ab po bid 7 days CLONIDINE HCL 39690481168 No Longer Active Corey SEGURA Active COUMADIN 5 MG ORAL TABLET 1 tab PO daily WARFAR IN SODIUM 89826893140 Active Mitch Urbina DO Active COUMADIN 4 MG ORAL TABLET 1 tablet daily WARFAR IN SODIUM 91097543630 No Longer Active Corey SEGURA Active POLYTRIM 81178-1.1 UNIT/ML-% OPHTHALMIC SOLUTION 1 rui p in affected eye every 3 hours while awake x 7 days POLYMYXIN B-TRIMETHOP RIM 23371497783 No Longer Active Corey SEGURA Active LOSARTAN POTASSIUM-HCTZ 100-12.5 MG ORAL TABLET 1 by m outh daily for high blood pressure LOSARTAN POTASSIUM-HCTZ 71979147111 No Longer A ctive Mitch Urbina DO Active LISINOPRIL-HYDROCHLOROTHIAZIDE 20-12.5 MG ORAL TABLET 1 tab by m outh daily LISINOPRIL-HYDROCHLOROTHIAZIDE 50010041586 No Longer Active Mitch Urbina DO Active LISINOPRIL 20 MG ORAL TABLET 1 tab po at HS LIS INOPRIL 70502752784 No Longer Active Mitch Urbina DO Active COUMADIN 5 MG ORAL TABLET 1 by mouth every other day 2 WARFARIN SODIUM 07987092072 No Longer Active Mitch Urbina DO Active COUMADIN 6 MG ORAL TABLET 1 by mouth every other day 2 WARFARIN SODIUM 00788727175 No Longer Active Mitch Urbina DO Active SIMVASTATIN 40 MG ORAL TABLET 1 tab daily at bedtime SIMVASTATIN 22840677171 Active Mitch Urbina DO Active SIMVASTATIN 20 MG ORAL TABLET 1 tab daily at bedtime 2 SIMVASTATIN 74526481686 No Longer Active Mitch Urbina DO Active LOVENOX 100 MG/ML SUBCUTANEOUS SOLUTION One injection twice a da y ENOXAPARIN SODIUM 26695985106 No Longer Active Carmine Yusuf MD Active JANUVIA 50 MG ORAL TABLET Take one by mouth daily SITAGLIPTIN PHOSPHATE 94534045491 Active Mitch Urbina DO Active JANUVIA 100 MG ORAL TABLET 1/2 by mouth every day 2011 SITAGLIPTIN PHOSPHATE 92084643876 No Longer Active Bijal Segal RN Acti ve METFORMIN HCL 500 MG ORAL TABLET 2 by mouth twice daily METFORMIN HCL 88239126556 Active Mitch Urbina DO Active COLCRYS 0.6 MG ORAL TABLET 1 po q 6 hours prn gout pain COLCHICINE 78422736331 No Longer Active Camila Reese Active LISINOPRIL 5 MG ORAL TABLET 1 by mouth every day 11/17 LISINOPRIL 58230980118 No Longer Active Nguyen Coekman Active KLOR-CON 20 MEQ ORAL PACKET Take one by mouth daily 09/10/08 POTASSIUM CHLORIDE 18027900933 No Longer Active Nguyen Coekman Active FUROSEMIDE 40 MG ORAL TABLET 1 by mouth daily F UROSEMIDE 30050656408 No Longer Active Nguyen Coekman Active PROVIGIL 200 MG ORAL TABLET 1/2 tab po q day MODA FINIL 69020777995 Active Renee Oconnor MINE LABORER Active PROVIGIL 100 MG ORAL TABLET Take one by mouth daily 08/20/04 MODAFINIL 31172734947 No Longer Active Mitch Urbina DO Active BACTRIM DS 800-160 MG ORAL TABLET 1 tab by mouth twice daily 201 10/19/09 TRIMETHOPRIM-SULFAMETHOXAZOLE 40832666801 No Longer Active Elian Hays MD Active FAMOTIDINE 20 MG ORAL TABLET by mouth twice a day FAMOTIDINE 22991207810 Active Mitch Urbina DO Active ADULT ASPIRIN LOW STRENGTH 81 MG ORAL TABLET DISINTEGR ATING 1 by mouth every daily ASPIRIN 05825620568 Active Mitch Urbina DO Ac tive METOPROLOL TARTRATE 50 MG ORAL TABLET 1 by mouth twice daily METOPROLOL TARTRATE 91282284252 Active Mitch Urbina DO Active BACTRIM DS 800-160 MG ORAL TABLET 1 tab by mouth twice daily 201 10/19/09 BACTRIM DS 800-160 MG ORAL TABLET 309811 TRIMETHOPRIM-SULFAMETHOXAZOLE Inactive PROVIGIL 100 MG ORAL TABLET Take one by mouth daily 08/20/04 PROVIGIL 100 MG ORAL TABLET 427828 MODAFINIL Inactive FUROSEMIDE 40 MG ORAL TABLET 1 by mouth daily FUROSEMIDE 40 MG ORAL TABLET 721588 FUROSEMIDE Inactive KLOR-CON 20 MEQ ORAL PACKET Take one by mouth daily 09/10/08 KLOR- CON 20 MEQ ORAL PACKET 1847828 POTASSIUM CHLORIDE Inactive LISINOPRIL 5 MG ORAL TABLET 1 by mouth every day 11/17 LISINOPRIL 5 MG ORAL TABLET 565834 LISINOPRIL Inactive COLCRYS 0.6 MG ORAL TABLET 1 po q 6 hours prn gout pain COLCRYS 0.6 MG ORAL TABLET 206173 COLCHICINE Inactive JANUVIA 100 MG ORAL TABLET 1/2 by mouth every day 2011 JANUVIA 100 MG ORAL TABLET SITAGLIPTIN PHOSPHATE Inactive SIMVASTATIN 20 MG ORAL TABLET 1 tab daily at bedtime 2 SIMVASTATIN 20 MG ORAL TABLET 327727 SIMVASTATIN Inactive COUMADIN 6 MG ORAL TABLET 1 by mouth every other day 2 COUMADIN 6 MG ORAL TABLET 763935 WARFARIN SODIUM Inactive COUMADIN 5 MG ORAL TABLET 1 by mouth every other day 2 COUMADIN 5 MG ORAL TABLET 365676 WARFARIN SODIUM Inactive LISINOPRIL 20 MG ORAL TABLET 1 tab po at HS LISINOPRIL 20 MG ORAL TABLET 044711 LISINOPRIL Inactive LISINOPRIL-HYDROCHLOROTHIAZIDE 20-12.5 MG ORAL TABLET 1 tab by m outh daily LISINOPRIL-HYDROCHLOROTHIAZIDE 20-12.5 MG ORAL TABLET 262236 LISINOPRIL-HYDROCHLOROTHIAZIDE Inactive POLYTRIM 16441-1.1 UNIT/ML-% OPHTHALMIC SOLUTION 1 rui p in affected eye every 3 hours while awake x 7 days POLYTRIM 1000 0-0.1 UNIT/ML-% OPHTHALMIC SOLUTION 720332 POLYMYXIN B-TRIMETHOPRIM Inactive COUMADIN 4 MG ORAL TABLET 1 tablet daily COUMADIN 4 MG ORAL TABLET 385438 WARFARIN SODIUM Inactive CLONIDINE HCL 0.1 MG ORAL TABLET 1 po bid 7 days, then 1/2 t ab po bid 7 days CLONIDINE HCL 0.1 MG ORAL TABLET 426201 CLONIDIN E HCL Inactive ALLOPURINOL 300 MG ORAL TABLET Take 1 tablet by mouth daily 2012 ALLOPURINOL 300 MG ORAL TABLET 834581 ALLOPURINOL I nactive MECLIZINE HCL 25 MG ORAL TABLET 1 po tid 3 days, then 1/2 ta b tid 3 days MECLIZINE HCL 25 MG ORAL TABLET 714202 MECLIZINE HCL Inactive AMLODIPINE BESYLATE 5 MG ORAL TABLET 1 tablet by mouth daily 201 01/20/04 AMLODIPINE BESYLATE 5 MG ORAL TABLET 020081 AMLODIPINE BESYLATE Inactive KEFLEX 500 MG ORAL CAPSULE 1 po qid K EFLEX 500 MG ORAL CAPSULE 849067 CEPHALEXIN Inactive LOVENOX 100 MG/ML SUBCUTANEOUS SOLUTION One injection twice a da y LOVENOX 100 MG/ML SUBCUTANEOUS SOLUTION 135650 ENOXAPAR IN SODIUM Inactive Vital Signs Date [...] - Chem istry sodium, serum 139 mmol/L 498-468 1793/07/17 potassium, serum 4.2 mmol/L 3.5-5.2 chloride, serum 102 mmol/L 98-107 carbon dioxide, venous blood 28.9 mmol/L 21.0-32 .0 blood glucose 211 mg/dL 65-110 calcium, serum 10.6 mg/dL 8.5-10.1 urea nitrogen, blood 29 mg/dL 7-18 creatinine, serum 1.24 mg/dL 0.60-1.30 sodium, serum 141 mmol/L 726-362 1756/08/07 potassium, serum 4.5 mmol/L 3.5-5.2 chloride, serum [...] W/RATIO - Hematology mean corpuscular volume, RBC 86 fL 80-97 hematocrit, blood 43.9 % 40.0-54.0 hemoglobin, blood 14.6 g/dL 14.0-18.0 erythrocyte (RBC) count 5.10 10^6/MM^3 10*6/mm3 4.50-6.5 0 leukocyte count, blood 8.7 10^3/MM^3 10*3/mm3 4.6-10.2 platelet count 216 10^3/MM^3 10*3/mm3 767-284 2861/06/12 red blood cell distribution width 14.9 % 11 .6-14.8 mean corpuscular hemoglobin concentration, RBC 33.2 G/DL % 31.8-35.4 mean corpuscular hemoglobin, RBC 28.6 pg 27. 0-31.2 Lab Report: CBC, MICROALB/CREAT W/RATIO - Lab microalbumin, urine 10 mg/L 0-19 Lab Report: Comp. Metabolic Panel, Thyro id Stimulating Hormone (L), Pros ... - Chemistry sodium, serum 144 mmol/L 828-916 6128/06/12 carbon dioxide, venous blood 26.6 mmol/L 21.0-32 .0 potassium, serum 4.2 mmol/L 3.5-5.2 aspartate aminotransferase (SGOT), serum 27 U/L 15-37 calcium, serum 10.5 mg/dL 8.5-10.1 bilirubin, serum, total 0.70 mg/dL 0.00-1.00 TSH 2.49 m[iU]/mL 0.36-3.74 prostate specific antigen 3.14 ng/mL 0.00-4.00 blood glucose 192 mg/dL 65-110 urea nitrogen, blood 27 mg/dL 7-18 creatinine, serum 1.32 mg/dL 0.55-1.30 alanine aminotransferase (SGPT), serum 32 U/L 12-78 chloride, serum 105 mmol/L 98-107 Lab Report: Lipid Panel, HEPATIC PANEL, HGBA1C - Chemistry hemoglobin A1C, blood, as % of total hemoglobin 6.4 % 4.3-6.0 cholesterol, serum 136 mg/dL 181-543 3742/12/06 triglyceride, serum, fasting 247 mg/dL 30-200 HDL cholesterol, serum 41 mg/dL 32-60 LDL cholesterol, serum 46 mg/dL 0-130 aspartate aminotransferase (SGOT), serum 22 U/L 15-37 alanine aminotransferase (SGPT), serum 30 U/L 12-78 bilirubin, serum, total 0.80 mg/dL 0.00-1.00 Encounters Code Encounter Date Provider Facility CPT-14506 Level 3 Est. Patient 18:25:53 CDT Mitch luis [facility] CPT-96870 Level 3 Est. Patient 19:43:34 CDT Mitch luis [facility] CPT-43643 Level 4 Est. Patient 09:30:18 CDT Mitch luis [facility] CPT-55170 Level 3 Est. Patient 15:10:14 CDT Joe kamara [facility] CPT-52078 Level 3 Est. Patient 15:03:46 CDT Joe kamara [facility] CPT-48956 Level 3 Est. Patient 14:21:06 CDT Mitch luis [facility] CPT-05909 Level 3 Est. Patient 14:52:06 CDT Joe kamara [facility] CPT-77126 Level 3 Est. Patient 09:34:30 [employer] SOFTWARE DEVELOPER Mitch luis [facility] CPT-99255 Level 3 Est. Patient 09:37:15 CDT Mtich luis [facility] CPT-44249 Level 3 Est. Patient 17:01:00 [employer] SOFTWARE DEVELOPER Mitch luis [facility] CPT-75840 Level 3 Est. Patient 13:53:19 [employer] SOFTWARE DEVELOPER Mitch luis [facility] CPT-86105 Level 3 Est. Patient 19:19:37 [employer] SOFTWARE DEVELOPER Mitch luis [facility] CPT-42533 Level 3 Est. Patient 13:25:53 [employer] SOFTWARE DEVELOPER Tavo toure MD [facility] CPT-30585 Level 3 Est. Patient 18:17:28 CDT Mitch luis [facility] CPT-52608 Level 3 Est. Patient 15:22:57 CDT Mitch luis [facility] CPT-85903 Level 3 Est. Patient 18:21:50 CDT Mitch luis [facility] CPT-53159 Level 3 Est. Patient 18:20:38 CDT Mitch luis [facility] CPT-35337 Level 3 Est. Patient 15:37:55 CDT Mitch luis [facility] CPT-18671 Level 2 Est. Patient 15:54:44 CDT Carmine benton MD [facility] CPT-63303 Level 3 Est. Patient 21:46:01 [employer] SOFTWARE DEVELOPER Mitch luis [facility] CPT-34543 Level 3 Est. Patient 22:15:50 CDT Mitch luis [facility] CPT-14187 Level 3 Est. Patient 10:48:15 CDT Mitch luis [facility] CPT-15112 Level 3 Est. Patient 23:20:57 CDT Tavo toure MD [facility] CPT-57983 Level 3 Est. Patient 16:26:13 CDT Mitch Arnol Nona janelle [facility] Procedures Code Procedure Name Date Entry Date Standard Desc ription CPT-74186 Venipuncture Draw Fee 09:26:17 CDT CPT-58790 PT/INR - LAB USE ONLY 13:32:49 [employer] SOFTWARE DEVELOPER CPT-16367 Venipuncture Draw Fee 13:32:49 [employer] SOFTWARE DEVELOPER CPT-02448 PT/INR - LAB USE ONLY 10:34:49 [employer] SOFTWARE DEVELOPER CPT-15918 Venipuncture Draw Fee 10:34:48 [employer] SOFTWARE DEVELOPER CPT-01155 PT/INR - LAB USE ONLY 09:22:03 [employer] SOFTWARE DEVELOPER CPT-09557 Venipuncture Draw Fee 09:22:02 [employer] SOFTWARE DEVELOPER CPT-57995 Hemoccult IFOBT - LAB USE ONLY 10:27:22 CDT CPT-81736 Venipuncture Draw Fee 08:27:08 CDT CPT-64133 Liver Profile - LAB USE ONLY 08:27:07 CDT 2 CPT-89116 Microalbumin - LAB USE ONLY 08:27:07 CDT 20 25/05/09 CPT-15156 PT/INR - LAB USE ONLY 08:27:07 CDT CPT-62330 HGBA1C - LAB USE ONLY 08:27:07 CDT CPT-29591 CBC - LAB USE ONLY 08:27:07 CDT CPT-12153 Venipuncture Draw Fee 11:09:14 CDT CPT-24823 Venipuncture Draw Fee 08:32:21 [employer] SOFTWARE DEVELOPER CPT-84582 Venipuncture Draw Fee 09:38:56 [employer] SOFTWARE DEVELOPER CPT-78349 No Charge Offi Visit 21:36:07 CDT 1 CPT-88212 Venipuncture Draw Fee 10:13:28 [employer] SOFTWARE DEVELOPER CPT-51742 Venipuncture Draw Fee 08:31:11 CDT CPT-54370 Aspir/Inject Med Joint 18:17:28 CDT CPT-29999 Venipuncture Draw Fee 10:13:30 CDT CPT-11005 Venipuncture Draw Fee 08:31:43 [employer] SOFTWARE DEVELOPER CPT-JTINJ Joint Injection 18:34:50 CDT CPT-07995 Knee 3V 12:25:09 CDT CPT-42641 Venipuncture Draw Fee 12:15:57 CDT CPT-060 Medical Surveillance Exam 21:31:43 CDT 2011 CPT-34801 Venipuncture Draw Fee 08:32:05 [employer] SOFTWARE DEVELOPER CPT-OV Office Visit 18:19:06 CDT
--- OUTSIDE RECORDS SUMMARY | 2020-01-18 12:11 | XMS REPORT | Clinical Summary ---
Author Author Admin, Mitch Leon Organization [facility] Address Unknown Phone Unavailable Allergies, Adverse Reactions, [...] Coronary atherosclerosis of unspecified type of vessel, [place] or graft EDEMA 782.3 Resolved Mitch Urbina [...] 10/23 CELLULITIS, GROIN, LEFT ICD-682.2 Inactive Zoya serra Arnol Urbina DO Medication List Medication Instructions Start Date Stop Date Generic Name NDC Status Provider Patient Instruction FLUTICASONE PROPIONATE 50 MCG/ACT NASAL SUSPENSION 1 s pray each nostril twice daily for 1 week, then once daily FLUTICASONE AL OPIONATE 29739642809 Active Becky Sell HIDES INSPECTOR Active PREDNISONE 20 MG ORAL TABLET 2 tabs daily for 3 days 1 tab d aily for 3 days PREDNISONE 15775693661 No Longer Active Becky Sell HIDES INSPECTOR Active MINOXIDIL 2.5 MG ORAL TABLET 1 tablet twice daily for high b lood pressure MINOXIDIL 42855913688 Active Mitch Urbina DO Ac tive METFORMIN HCL ER 500 MG ORAL TABLET EXTENDED RELEASE 2 4 HOUR 2 tablets by mouth twice daily METFORMIN HCL 24121880249 Active Mitch Urbina DO Active GLIMEPIRIDE 4 MG ORAL TABLET 1 tablet by mouth twice daily f or diabetes GLIMEPIRIDE 80029186134 Active Mitch Urbina DO Active GLIMEPIRIDE 2 MG ORAL TABLET 1 po BID GLIMEPI RIDE 99146513247 No Longer Active Mitch Urbina DO Active AMLODIPINE BESYLATE 5 MG ORAL TABLET 1 tablet by mouth daily AMLODIPINE BESYLATE 91898621602 Active Mitch Urbina DO Active PROVIGIL 200 MG ORAL TABLET 1/2 tab po q day MODA FINIL 14230039148 Active Renee Oconnor LPN Active FAMOTIDINE 20 MG ORAL TABLET by mouth twice a day 2017 FAMOTIDINE 97275451571 No Longer Active Mitch Urbina DO Active COLCRYS 0.6 MG ORAL TABLET 1 tab qid prn gout C OLCHICINE 45686263171 No Longer Active Mitch Urbina DO Active KEFLEX 500 MG ORAL CAPSULE 1 po qid CEPHALEXI N 29076171453 No Longer Active Mitch Urbina DO Active LOSARTAN POTASSIUM 100 MG ORAL TABLET 1 pill by mouth daily, for blood pressure LOSARTAN POTASSIUM 93827795044 Active Mitch Arnol Carlitos VELASQUEZ Active AMLODIPINE BESYLATE 5 MG ORAL TABLET 1 tablet by mouth daily 201 01/20/04 AMLODIPINE BESYLATE 61128279838 No Longer Active Joe fulton APRN Active MITIGARE 0.6 MG ORAL CAPSULE 2 capsules at onset of go ut pain, then take one capsule at 1 hour if symptoms persist. COLCHICINE 59 252134659 Active Mitch Urbina DO Active COUMADIN 1 MG ORAL TABLET 2 tabs orally daily with the 5mg tab to equal 7mg daily WARFARIN SODIUM 80187247032 Active Renee Oconnor LPN Active INVOKANA 100 MG ORAL TABLET 1 tablet orally daily CANAGLIFLOZIN 40401612274 Active Mitch Urbina DO Active MECLIZINE HCL 25 MG ORAL TABLET 1 po tid 3 days, then 1/2 ta b tid 3 days MECLIZINE HCL 62656354464 No Longer Active Corey SEGURA Active ALLOPURINOL 300 MG ORAL TABLET Take 1 tablet by mouth daily 2012 ALLOPURINOL 84200927647 No Longer Active Corey SEGURA Active CLONIDINE HCL 0.1 MG ORAL TABLET 1 po bid 7 days, then 1/2 t ab po bid 7 days CLONIDINE HCL 46518316297 No Longer Active Corey SEGURA Active COUMADIN 5 MG ORAL TABLET 1 tab PO daily WARFAR IN SODIUM 88601774579 Active Renee Oconnor LPN Active COUMADIN 4 MG ORAL TABLET 1 tablet daily WARFAR IN SODIUM 64482764713 No Longer Active Corey SEGURA Active POLYTRIM 65402-2.1 UNIT/ML-% OPHTHALMIC SOLUTION 1 rui p in affected eye every 3 hours while awake x 7 days POLYMYXIN B-TRIMETHOP RIM 50942243599 No Longer Active Corey SEGURA Active LOSARTAN POTASSIUM-HCTZ 100-12.5 MG ORAL TABLET 1 by m outh daily for high blood pressure LOSARTAN POTASSIUM-HCTZ 24512731664 No Longer A ctive Mitch Urbina DO Active LISINOPRIL-HYDROCHLOROTHIAZIDE 20-12.5 MG ORAL TABLET 1 tab by m outh daily LISINOPRIL-HYDROCHLOROTHIAZIDE 00260086368 No Longer Active Mitch Urbina DO Active LISINOPRIL 20 MG ORAL TABLET 1 tab po at HS LIS INOPRIL 98837172775 No Longer Active Mitch Urbina DO Active COUMADIN 5 MG ORAL TABLET 1 by mouth every other day 2 WARFARIN SODIUM 38738596088 No Longer Active Mitch Urbina DO Active COUMADIN 6 MG ORAL TABLET 1 by mouth every other day 2 WARFARIN SODIUM 81960260666 No Longer Active Mitch Urbina DO Active SIMVASTATIN 40 MG ORAL TABLET 1 tab daily at bedtime SIMVASTATIN 44864317273 Active Maria Rivas RN Active SIMVASTATIN 20 MG ORAL TABLET 1 tab daily at bedtime 2 SIMVASTATIN 71873775357 No Longer Active Mitch Urbina DO Active LOVENOX 100 MG/ML SUBCUTANEOUS SOLUTION One injection twice a da y ENOXAPARIN SODIUM 66206572894 No Longer Active Carmine Yusuf MD Active JANUVIA 50 MG ORAL TABLET Take one by mouth daily SITAGLIPTIN PHOSPHATE 72099031203 Active Renee Oconnor LPN Active JANUVIA 100 MG ORAL TABLET 1/2 by mouth every day 2011 SITAGLIPTIN PHOSPHATE 76231438137 No Longer Active Bijal Segal RN Acti ve METFORMIN HCL 500 MG ORAL TABLET 2 by mouth twice daily METFORMIN HCL 24954928394 No Longer Active Renee Oconnor LPN Active COLCRYS 0.6 MG ORAL TABLET 1 po q 6 hours prn gout pain COLCHICINE 06161644799 No Longer Active Camila Reese Active LISINOPRIL 5 MG ORAL TABLET 1 by mouth every day 11/17 LISINOPRIL 80196327472 No Longer Active Nguyen Ana Active KLOR-CON 20 MEQ ORAL PACKET Take one by mouth daily 09/10/08 POTASSIUM CHLORIDE 86649093945 No Longer Active Nguyen Ana Active FUROSEMIDE 40 MG ORAL TABLET 1 by mouth daily F UROSEMIDE 25017183416 No Longer Active Nguyen Ana Active PROVIGIL 100 MG ORAL TABLET Take one by mouth daily 08/20/04 MODAFINIL 04727900743 No Longer Active Mitch Urbina DO Active BACTRIM DS 800-160 MG ORAL TABLET 1 tab by mouth twice daily 201 10/19/09 TRIMETHOPRIM-SULFAMETHOXAZOLE 66441858262 No Longer Active Elian Hays MD Active ADULT ASPIRIN LOW STRENGTH 81 MG ORAL TABLET DISINTEGR ATING 1 by mouth every daily ASPIRIN 84700675960 Active Mitch Urbina DO Ac tive METOPROLOL TARTRATE 50 MG ORAL TABLET 1 by mouth twice daily METOPROLOL TARTRATE 94610159530 Active Maria Rivas RN Ac tive BACTRIM DS 800-160 MG ORAL TABLET 1 tab by mouth twice daily 201 10/19/09 BACTRIM DS 800-160 MG ORAL TABLET 297430 TRIMETHOPRIM-SULFAMETHOXAZOLE Inactive PROVIGIL 100 MG ORAL TABLET Take one by mouth daily 08/20/04 PROVIGIL 100 MG ORAL TABLET 173338 MODAFINIL Inactive FUROSEMIDE 40 MG ORAL TABLET 1 by mouth daily FUROSEMIDE 40 MG ORAL TABLET 601099 FUROSEMIDE Inactive KLOR-CON 20 MEQ ORAL PACKET Take one by mouth daily 09/10/08 KLOR- CON 20 MEQ ORAL PACKET 6612175 POTASSIUM CHLORIDE Inactive LISINOPRIL 5 MG ORAL TABLET 1 by mouth every day 11/17 LISINOPRIL 5 MG ORAL TABLET 860130 LISINOPRIL Inactive COLCRYS 0.6 MG ORAL TABLET 1 po q 6 hours prn gout pain COLCRYS 0.6 MG ORAL TABLET 803243 COLCHICINE Inactive JANUVIA 100 MG ORAL TABLET 1/2 by mouth every day 2011 JANUVIA 100 MG ORAL TABLET SITAGLIPTIN PHOSPHATE Inactive SIMVASTATIN 20 MG ORAL TABLET 1 tab daily at bedtime 2 SIMVASTATIN 20 MG ORAL TABLET 031364 SIMVASTATIN Inactive COUMADIN 6 MG ORAL TABLET 1 by mouth every other day 2 COUMADIN 6 MG ORAL TABLET 302902 WARFARIN SODIUM Inactive COUMADIN 5 MG ORAL TABLET 1 by mouth every other day 2 COUMADIN 5 MG ORAL TABLET 064010 WARFARIN SODIUM Inactive LISINOPRIL 20 MG ORAL TABLET 1 tab po at HS LISINOPRIL 20 MG ORAL TABLET 673424 LISINOPRIL Inactive LISINOPRIL-HYDROCHLOROTHIAZIDE 20-12.5 MG ORAL TABLET 1 tab by m outh daily LISINOPRIL-HYDROCHLOROTHIAZIDE 20-12.5 MG ORAL TABLET 066275 LISINOPRIL-HYDROCHLOROTHIAZIDE Inactive POLYTRIM 35000-7.1 UNIT/ML-% OPHTHALMIC SOLUTION 1 rui p in affected eye every 3 hours while awake x 7 days POLYTRIM 1000 0-0.1 UNIT/ML-% OPHTHALMIC SOLUTION 453107 POLYMYXIN B-TRIMETHOPRIM Inactive COUMADIN 4 MG ORAL TABLET 1 tablet daily COUMADIN 4 MG ORAL TABLET 453372 WARFARIN SODIUM Inactive CLONIDINE HCL 0.1 MG ORAL TABLET 1 po bid 7 days, then 1/2 t ab po bid 7 days CLONIDINE HCL 0.1 MG ORAL TABLET 004752 CLONIDIN E HCL Inactive ALLOPURINOL 300 MG ORAL TABLET Take 1 tablet by mouth daily 2012 ALLOPURINOL 300 MG ORAL TABLET 550022 ALLOPURINOL I nactive MECLIZINE HCL 25 MG ORAL TABLET 1 po tid 3 days, then 1/2 ta b tid 3 days MECLIZINE HCL 25 MG ORAL TABLET 416569 MECLIZINE HCL Inactive AMLODIPINE BESYLATE 5 MG ORAL TABLET 1 tablet by mouth daily 201 01/20/04 AMLODIPINE BESYLATE 5 MG ORAL TABLET 164932 AMLODIPINE BESYLATE Inactive KEFLEX 500 MG ORAL CAPSULE 1 po qid K EFLEX 500 MG ORAL CAPSULE 174938 CEPHALEXIN Inactive COLCRYS 0.6 MG ORAL TABLET 1 tab qid prn gout COLCRYS 0.6 MG ORAL TABLET 346823 COLCHICINE Inactive FAMOTIDINE 20 MG ORAL TABLET by mouth twice a day 2017 FAMOTIDINE 20 MG ORAL TABLET 581766 FAMOTIDINE Inactive GLIMEPIRIDE 2 MG ORAL TABLET 1 po BID GLIMEPIRIDE 2 MG ORAL TABLET 174423 GLIMEPIRIDE Inactive LOVENOX 100 MG/ML SUBCUTANEOUS SOLUTION One injection twice a da y LOVENOX 100 MG/ML SUBCUTANEOUS SOLUTION 401658 ENOXAPAR IN SODIUM Inactive PREDNISONE 20 MG ORAL TABLET 2 tabs daily for 3 days 1 tab d aily for 3 days PREDNISONE 20 MG ORAL TABLET 235422 PREDNISONE Inactive Advance Directives Directive Description Start [...] mg/dL Encounters Code Encounter Date Provider Facility CPT-63850 Level 3 Est. Patient 15:18:36 CDT Becky anderson [facility] CPT-22633 [id number] Vst-Est Level IV 10:06:35 CDT Stephy Ambrose [facility] CPT-36084 [id number] Vst-Est Level IV 10:52:00 PROOFER APPRENTICE Stephy Ambrose [facility] CPT-16579 Level 3 Est. Patient 18:25:[address] [facility] CPT-70475 Level 3 Est. Patient 19:43:[address] [facility] CPT-44225 Level 4 Est. Patient 09:30:[address] [facility] CPT-95453 Level 3 Est. Patient 15:10:14 CDT Joe kamara [facility] CPT-31267 Level 3 Est. Patient 15:03:46 CDT Joe kamara [facility] CPT-63312 Level 3 Est. Patient 14:21:[address] [facility] CPT-66773 Level 3 Est. Patient 14:52:06 CDT Joe kamara [facility] CPT-04221 Level 3 Est. Patient 09:34:30 PROOFER APPRENTICE Mitch luis [facility] CPT-30648 Level 3 Est. Patient 09:37:[address] [facility] CPT-52009 Level 3 Est. Patient 17:01:00 PROOFER APPRENTICE Mitch luis [facility] CPT-20072 Level 3 Est. Patient 13:53:19 PROOFER APPRENTICE Mitch luis [facility] CPT-28004 Level 3 Est. Patient 19:19:37 PROOFER APPRENTICE Mitch luis [facility] CPT-52406 Level 3 Est. Patient 13:25:53 PROOFER APPRENTICE Tavo toure MD [facility] CPT-05807 Level 3 Est. Patient 18:17:[address] [facility] CPT-02643 Level 3 Est. Patient 15:22:[address] [facility] CPT-99621 Level 3 Est. Patient 18:21:[address] [facility] CPT-66934 Level 3 Est. Patient 18:20:[address] [facility] CPT-60434 Level 3 Est. Patient 15:37:[address] [facility] CPT-11072 Level 2 Est. Patient 15:54:44 CDT Carmine benton MD [facility]-63250 Level 3 Est. Patient 21:46:01 PROOFER APPRENTICE Mitch luis [facility] CPT-63332 Level 3 Est. Patient 22:15:[address] [facility] CPT-37320 Level 3 Est. Patient 10:48:[address] [facility] CPT-43848 Level 3 Est. Patient 23:20:57 CDT Tavo toure MD [facility] CPT-56918 Level 3 Est. Patient 16:26:[address] [facility] Procedures Code Procedure Name Date Entry Date Standard Desc ription CPT-29487 Venipuncture Draw Fee 14:56:20 CDT CPT-JTINJ Asp/Joint Injection 18:47:02 CDT CPT-83610 Venipuncture Draw Fee 09:26:17 CDT CPT-23330 PT/INR - LAB USE ONLY 13:32:49 PROOFER APPRENTICE CPT-45237 Venipuncture Draw Fee 13:32:49 PROOFER APPRENTICE CPT-56388 PT/INR - LAB USE ONLY 10:34:49 PROOFER APPRENTICE CPT-18039 Venipuncture Draw Fee 10:34:48 PROOFER APPRENTICE CPT-94661 PT/INR - LAB USE ONLY 09:22:03 PROOFER APPRENTICE CPT-03521 Venipuncture Draw Fee 09:22:02 PROOFER APPRENTICE CPT-30823 Hemoccult IFOBT - LAB USE ONLY 10:27:22 CDT CPT-32073 Venipuncture Draw Fee 08:27:08 CDT CPT-42284 Liver Profile - LAB USE ONLY 08:27:07 CDT 2 CPT-57250 Microalbumin - LAB USE ONLY 08:27:07 CDT 20 25/05/09 CPT-98565 PT/INR - LAB USE ONLY 08:27:07 CDT CPT-51933 HGBA1C - LAB USE ONLY 08:27:07 CDT CPT-44204 CBC - LAB USE ONLY 08:27:07 CDT CPT-84897 Venipuncture Draw Fee 11:09:14 CDT CPT-62181 Venipuncture Draw Fee 08:32:21 PROOFER APPRENTICE CPT-59564 Venipuncture Draw Fee 09:38:56 PROOFER APPRENTICE CPT-65046 No Charge Offi Visit 21:36:07 CDT 1 CPT-25170 Venipuncture Draw Fee 10:13:28 PROOFER APPRENTICE CPT-86029 Venipuncture Draw Fee 08:31:11 CDT CPT-96203 Aspir/Inject Med Joint 18:17:28 CDT CPT-34273 Venipuncture Draw Fee 10:13:30 CDT CPT-65076 Venipuncture Draw Fee 08:31:43 PROOFER APPRENTICE CPT-JTINJ Joint Injection 18:34:50 CDT CPT-29715 Knee 3V 12:25:09 CDT CPT-86491 Venipuncture Draw Fee 12:15:57 CDT CPT-060 Medical Surveillance Exam 21:31:43 CDT 2011 CPT-52707 Venipuncture Draw Fee 08:32:05 PROOFER APPRENTICE CPT-OV Office Visit 18:19:06 CDT
--- OUTSIDE RECORDS SUMMARY | 2020-01-18 12:11 | XMS REPORT | Clinical Summary ---
Author Author Admin, Mitch Leon Organization [facility] Address Unknown Phone Unavailable Allergies, Adverse Reactions, [...] Coronary atherosclerosis of unspecified type of vessel, hughes or graft EDEMA 782.3 Resolved Mitch Urbina [...] bursitis UNSPECIFIED ANEMIA 285.9 Resolved Mitch W Carltios DO Anemia, unspecified Malaise and fatigue 780.79 [...] for 1 week, then once daily FLUTICASONE MN OPIONATE 62670433674 Active Becky Sell ROPEWALK ROPE MAKER Active PREDNISONE 20 MG ORAL TABLET 2 tabs daily for 3 days 1 tab d aily for 3 days PREDNISONE 68777540764 No Longer Active Becky Sell ROPEWALK ROPE MAKER Active MINOXIDIL 2.5 MG ORAL TABLET 1 tablet twice daily for high b lood pressure MINOXIDIL 96838824053 Active Mitch Urbina DO Ac tive METFORMIN HCL ER 500 MG ORAL TABLET EXTENDED RELEASE 2 4 HOUR 2 tablets by mouth twice daily METFORMIN HCL 75079044058 Active Mitch Urbina DO Active GLIMEPIRIDE 4 MG ORAL TABLET 1 tablet by mouth twice daily f or diabetes GLIMEPIRIDE 62399322617 Active Mitch Urbina DO Active GLIMEPIRIDE 2 MG ORAL TABLET 1 po BID GLIMEPI RIDE 15402126174 No Longer Active Mitch Urbina DO Active AMLODIPINE BESYLATE 5 MG ORAL TABLET 1 tablet by mouth daily AMLODIPINE BESYLATE 04911681547 Active Mitch Urbina DO Active PROVIGIL 200 MG ORAL TABLET 1/2 tab po q day MODA FINIL 12009816260 Active Renee Oconnor LPN Active FAMOTIDINE 20 MG ORAL TABLET by mouth twice a day 2017 FAMOTIDINE 23989361583 No Longer Active Mitch Urbina DO Active COLCRYS 0.6 MG ORAL TABLET 1 tab qid prn gout C OLCHICINE 89553429004 No Longer Active Mitch Urbina DO Active KEFLEX 500 MG ORAL CAPSULE 1 po qid CEPHALEXI N 61291303956 No Longer Active Mitch Urbina DO Active LOSARTAN POTASSIUM 100 MG ORAL TABLET 1 pill by mouth daily, for blood pressure LOSARTAN POTASSIUM 69426161521 Active Mitch Arnol Carlitos VELASQUEZ Active AMLODIPINE BESYLATE 5 MG ORAL TABLET 1 tablet by mouth daily 201 01/20/04 AMLODIPINE BESYLATE 15147873387 No Longer Active Joe fulton APRN Active MITIGARE 0.6 MG ORAL CAPSULE 2 capsules at onset of go ut pain, then take one capsule at 1 hour if symptoms persist. COLCHICINE 59 050371334 Active Mitch Urbina DO Active COUMADIN 1 MG ORAL TABLET 2 tabs orally daily with the 5mg tab to equal 7mg daily WARFARIN SODIUM 87354981248 Active Renee Oconnor LPN Active INVOKANA 100 MG ORAL TABLET 1 tablet orally daily CANAGLIFLOZIN 02726556798 Active Mitch Urbina DO Active MECLIZINE HCL 25 MG ORAL TABLET 1 po tid 3 days, then 1/2 ta b tid 3 days MECLIZINE HCL 93909019868 No Longer Active Corey SEGURA Active ALLOPURINOL 300 MG ORAL TABLET Take 1 tablet by mouth daily 2012 ALLOPURINOL 58774804966 No Longer Active Corey SEGURA Active CLONIDINE HCL 0.1 MG ORAL TABLET 1 po bid 7 days, then 1/2 t ab po bid 7 days CLONIDINE HCL 12354537648 No Longer Active Corey SEGURA Active COUMADIN 5 MG ORAL TABLET 1 tab PO daily WARFAR IN SODIUM 29187045647 Active Renee Oconnor LPN Active COUMADIN 4 MG ORAL TABLET 1 tablet daily WARFAR IN SODIUM 83521881274 No Longer Active Corey SEGURA Active POLYTRIM 39996-9.1 UNIT/ML-% OPHTHALMIC SOLUTION 1 rui p in affected eye every 3 hours while awake x 7 days POLYMYXIN B-TRIMETHOP RIM 72641890607 No Longer Active Corey SEGURA Active LOSARTAN POTASSIUM-HCTZ 100-12.5 MG ORAL TABLET 1 by m outh daily for high blood pressure LOSARTAN POTASSIUM-HCTZ 70671727456 No Longer A ctive Mitch Urbina DO Active LISINOPRIL-HYDROCHLOROTHIAZIDE 20-12.5 MG ORAL TABLET 1 tab by m outh daily LISINOPRIL-HYDROCHLOROTHIAZIDE 95783108372 No Longer Active Mitch Urbina DO Active LISINOPRIL 20 MG ORAL TABLET 1 tab po at HS LIS INOPRIL 06896785970 No Longer Active Mitch Urbina DO Active COUMADIN 5 MG ORAL TABLET 1 by mouth every other day 2 WARFARIN SODIUM 81807569456 No Longer Active Mitch Urbina DO Active COUMADIN 6 MG ORAL TABLET 1 by mouth every other day 2 WARFARIN SODIUM 93418606520 No Longer Active Mitch Urbina DO Active SIMVASTATIN 40 MG ORAL TABLET 1 tab daily at bedtime SIMVASTATIN 33134721642 Active Maria Rivas RN Active SIMVASTATIN 20 MG ORAL TABLET 1 tab daily at bedtime 2 SIMVASTATIN 35020194557 No Longer Active Mitch Urbina DO Active LOVENOX 100 MG/ML SUBCUTANEOUS SOLUTION One injection twice a da y ENOXAPARIN SODIUM 98462525213 No Longer Active Carmine Yusuf MD Active JANUVIA 50 MG ORAL TABLET Take one by mouth daily SITAGLIPTIN PHOSPHATE 79320382450 Active Renee Oconnor LPN Active JANUVIA 100 MG ORAL TABLET 1/2 by mouth every day 2011 SITAGLIPTIN PHOSPHATE 29211565306 No Longer Active Bijal Segal RN Acti ve METFORMIN HCL 500 MG ORAL TABLET 2 by mouth twice daily METFORMIN HCL 12860132201 No Longer Active Renee Oconnor LPN Active COLCRYS 0.6 MG ORAL TABLET 1 po q 6 hours prn gout pain COLCHICINE 18939669221 No Longer Active Camila Reese Active LISINOPRIL 5 MG ORAL TABLET 1 by mouth every day 11/17 LISINOPRIL 04059697651 No Longer Active Nguyen Ana Active KLOR-CON 20 MEQ ORAL PACKET Take one by mouth daily 09/10/08 POTASSIUM CHLORIDE 70352748765 No Longer Active Nguyen Ana Active FUROSEMIDE 40 MG ORAL TABLET 1 by mouth daily F UROSEMIDE 75095919263 No Longer Active Nguyen Ana Active PROVIGIL 100 MG ORAL TABLET Take one by mouth daily 08/20/04 MODAFINIL 91837448186 No Longer Active Mitch Urbina DO Active BACTRIM DS 800-160 MG ORAL TABLET 1 tab by mouth twice daily 201 10/19/09 TRIMETHOPRIM-SULFAMETHOXAZOLE 58801737715 No Longer Active Elian Hays MD Active ADULT ASPIRIN LOW STRENGTH 81 MG ORAL TABLET DISINTEGR ATING 1 by mouth every daily ASPIRIN 34466146973 Active Mitch Urbina DO Ac tive METOPROLOL TARTRATE 50 MG ORAL TABLET 1 by mouth twice daily METOPROLOL TARTRATE 80470415691 Active Maria Rivas RN Ac tive BACTRIM DS 800-160 MG ORAL TABLET 1 tab by mouth twice daily 201 10/19/09 BACTRIM DS 800-160 MG ORAL TABLET 216737 TRIMETHOPRIM-SULFAMETHOXAZOLE Inactive PROVIGIL 100 MG ORAL TABLET Take one by mouth daily 08/20/04 PROVIGIL 100 MG ORAL TABLET 486563 MODAFINIL Inactive FUROSEMIDE 40 MG ORAL TABLET 1 by mouth daily FUROSEMIDE 40 MG ORAL TABLET 166075 FUROSEMIDE Inactive KLOR-CON 20 MEQ ORAL PACKET Take one by mouth daily 09/10/08 KLOR- CON 20 MEQ ORAL PACKET 0377815 POTASSIUM CHLORIDE Inactive LISINOPRIL 5 MG ORAL TABLET 1 by mouth every day 11/17 LISINOPRIL 5 MG ORAL TABLET 549555 LISINOPRIL Inactive COLCRYS 0.6 MG ORAL TABLET 1 po q 6 hours prn gout pain COLCRYS 0.6 MG ORAL TABLET 472789 COLCHICINE Inactive JANUVIA 100 MG ORAL TABLET 1/2 by mouth every day 2011 JANUVIA 100 MG ORAL TABLET SITAGLIPTIN PHOSPHATE Inactive SIMVASTATIN 20 MG ORAL TABLET 1 tab daily at bedtime 2 SIMVASTATIN 20 MG ORAL TABLET 514618 SIMVASTATIN Inactive COUMADIN 6 MG ORAL TABLET 1 by mouth every other day 2 COUMADIN 6 MG ORAL TABLET 283541 WARFARIN SODIUM Inactive COUMADIN 5 MG ORAL TABLET 1 by mouth every other day 2 COUMADIN 5 MG ORAL TABLET 549344 WARFARIN SODIUM Inactive LISINOPRIL 20 MG ORAL TABLET 1 tab po at HS LISINOPRIL 20 MG ORAL TABLET 202552 LISINOPRIL Inactive LISINOPRIL-HYDROCHLOROTHIAZIDE 20-12.5 MG ORAL TABLET 1 tab by m outh daily LISINOPRIL-HYDROCHLOROTHIAZIDE 20-12.5 MG ORAL TABLET 115367 LISINOPRIL-HYDROCHLOROTHIAZIDE Inactive POLYTRIM 97967-8.1 UNIT/ML-% OPHTHALMIC SOLUTION 1 rui p in affected eye every 3 hours while awake x 7 days POLYTRIM 1000 0-0.1 UNIT/ML-% OPHTHALMIC SOLUTION 524771 POLYMYXIN B-TRIMETHOPRIM Inactive COUMADIN 4 MG ORAL TABLET 1 tablet daily COUMADIN 4 MG ORAL TABLET 478895 WARFARIN SODIUM Inactive CLONIDINE HCL 0.1 MG ORAL TABLET 1 po bid 7 days, then 1/2 t ab po bid 7 days CLONIDINE HCL 0.1 MG ORAL TABLET 048611 CLONIDIN E HCL Inactive ALLOPURINOL 300 MG ORAL TABLET Take 1 tablet by mouth daily 2012 ALLOPURINOL 300 MG ORAL TABLET 717014 ALLOPURINOL I nactive MECLIZINE HCL 25 MG ORAL TABLET 1 po tid 3 days, then 1/2 ta b tid 3 days MECLIZINE HCL 25 MG ORAL TABLET 238942 MECLIZINE HCL Inactive AMLODIPINE BESYLATE 5 MG ORAL TABLET 1 tablet by mouth daily 201 01/20/04 AMLODIPINE BESYLATE 5 MG ORAL TABLET 223144 AMLODIPINE BESYLATE Inactive KEFLEX 500 MG ORAL CAPSULE 1 po qid K EFLEX 500 MG ORAL CAPSULE 027699 CEPHALEXIN Inactive COLCRYS 0.6 MG ORAL TABLET 1 tab qid prn gout COLCRYS 0.6 MG ORAL TABLET 689688 COLCHICINE Inactive FAMOTIDINE 20 MG ORAL TABLET by mouth twice a day 2017 FAMOTIDINE 20 MG ORAL TABLET 496794 FAMOTIDINE Inactive GLIMEPIRIDE 2 MG ORAL TABLET 1 po BID GLIMEPIRIDE 2 MG ORAL TABLET 018907 GLIMEPIRIDE Inactive LOVENOX 100 MG/ML SUBCUTANEOUS SOLUTION One injection twice a da y LOVENOX 100 MG/ML SUBCUTANEOUS SOLUTION 789192 ENOXAPAR IN SODIUM Inactive PREDNISONE 20 MG ORAL TABLET 2 tabs daily for 3 days 1 tab d aily for 3 days PREDNISONE 20 MG ORAL TABLET 560754 PREDNISONE Inactive Advance Directives Directive Description Start [...] mg/dL Encounters Code Encounter Date Provider Facility CPT-61134 Level 3 Est. Patient 15:18:36 CDT Becky anderson [facility] CPT-08678 16303-Bcz Vst-Est Level IV 10:06:35 CDT Stephy Ambrose [facility] CPT-82067 [id number]-[id number] Vst-Est Level IV 10:52:00 TOY MAKER Stephy Ambrose [facility] CPT-66391 Level 3 Est. Patient 18:25:53 CDT Mitch luis [facility] CPT-59292 Level 3 Est. Patient 19:43:34 CDT Mitch luis [facility] CPT-73947 Level 4 Est. Patient 09:30:18 CDT Mitch luis [facility] CPT-92681 Level 3 Est. Patient 15:10:14 CDT Joe kamara [facility] CPT-71645 Level 3 Est. Patient 15:03:46 CDT Joe kamara [facility] CPT-26825 Level 3 Est. Patient 14:21:06 CDT Mitch luis [facility] CPT-35470 Level 3 Est. Patient 14:52:06 CDT Joe kamara [facility] CPT-14674 Level 3 Est. Patient 09:34:30 TOY MAKER Mitch luis [facility] CPT-96221 Level 3 Est. Patient 09:37:15 CDT Mitch luis [facility] CPT-45762 Level 3 Est. Patient 17:01:00 TOY MAKER Mitch luis [facility] CPT-04236 Level 3 Est. Patient 13:53:19 TOY MAKER Mitch luis [facility] CPT-05840 Level 3 Est. Patient 19:19:37 TOY MAKER Mitch luis [facility] CPT-64518 Level 3 Est. Patient 13:25:53 TOY MAKER Tavo toure MD [facility] CPT-54450 Level 3 Est. Patient 18:17:28 CDT Mitch luis [facility] CPT-29307 Level 3 Est. Patient 15:22:57 CDT Mitch lius [facility] CPT-55307 Level 3 Est. Patient 18:21:50 CDT Mitch luis [facility] CPT-12020 Level 3 Est. Patient 18:20:38 CDT Mitch luis [facility] CPT-77626 Level 3 Est. Patient 15:37:55 CDT Mitch luis [facility] CPT-36943 Level 2 Est. Patient 15:54:44 CDT Carmine benton MD [facility]-77603 Level 3 Est. Patient 21:46:01 TOY MAKER Mitch luis [facility] CPT-32137 Level 3 Est. Patient 22:15:50 CDT Mitch luis [facility] CPT-91803 Level 3 Est. Patient 10:48:15 CDT Mitch luis [facility] CPT-59394 Level 3 Est. Patient 23:20:57 CDT Tavo toure MD [facility] CPT-65773 Level 3 Est. Patient 16:26:13 CDT Mitch luis [facility] Procedures Code Procedure Name Date Entry Date Standard Desc ription CPT-98790 Venipuncture Draw Fee 14:56:20 CDT CPT-JTINJ Asp/Joint Injection 18:47:02 CDT CPT-55710 Venipuncture Draw Fee 09:26:17 CDT CPT-25797 PT/INR - LAB USE ONLY 13:32:49 TOY MAKER CPT-96362 Venipuncture Draw Fee 13:32:49 TOY MAKER CPT-18394 PT/INR - LAB USE ONLY 10:34:49 TOY MAKER CPT-59854 Venipuncture Draw Fee 10:34:48 TOY MAKER CPT-61005 PT/INR - LAB USE ONLY 09:22:03 TOY MAKER CPT-70591 Venipuncture Draw Fee 09:22:02 TOY MAKER CPT-85722 Hemoccult IFOBT - LAB USE ONLY 10:27:22 CDT CPT-33249 Venipuncture Draw Fee 08:27:08 CDT CPT-02907 Liver Profile - LAB USE ONLY 08:27:07 CDT 2 CPT-71273 Microalbumin - LAB USE ONLY 08:27:07 CDT 20 25/05/09 CPT-95159 PT/INR - LAB USE ONLY 08:27:07 CDT CPT-87790 HGBA1C - LAB USE ONLY 08:27:07 CDT CPT-18977 CBC - LAB USE ONLY 08:27:07 CDT CPT-23398 Venipuncture Draw Fee 11:09:14 CDT CPT-73210 Venipuncture Draw Fee 08:32:21 TOY MAKER CPT-19789 Venipuncture Draw Fee 09:38:56 TOY MAKER CPT-84868 No Charge Offi Visit 21:36:07 CDT 1 CPT-95578 Venipuncture Draw Fee 10:13:28 TOY MAKER CPT-00099 Venipuncture Draw Fee 08:31:11 CDT CPT-27029 Aspir/Inject Med Joint 18:17:28 CDT CPT-13376 Venipuncture Draw Fee 10:13:30 CDT CPT-56367 Venipuncture Draw Fee 08:31:43 TOY MAKER CPT-JTINJ Joint Injection 18:34:50 CDT CPT-72405 Knee 3V 12:25:09 CDT CPT-14228 Venipuncture Draw Fee 12:15:57 CDT CPT-060 Medical Surveillance Exam 21:31:43 CDT 2011 CPT-56806 Venipuncture Draw Fee 08:32:05 TOY MAKER CPT-OV Office Visit 18:19:06 CDT
--- OUTSIDE RECORDS SUMMARY | 2020-01-18 12:12 | XMS REPORT | Clinical Summary ---
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 PREDNISONE 20 MG ORAL TABLET 2 tabs daily for 3 days 1 tab d aily for 3 days PREDNISONE 14950080207 No Longer Active Becky Sell 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 DELIVERY DRIVER Active MINOXIDIL 2.5 MG ORAL TABLET 1 tablet twice daily for high b lood pressure MINOXIDIL 01342413234 Active Mitch Urbina DO Ac tive METFORMIN HCL ER 500 MG ORAL TABLET EXTENDED RELEASE 2 4 HOUR 2 tablets by mouth twice daily METFORMIN HCL 73993637819 Active Mitch Urbina DO Active GLIMEPIRIDE 4 MG ORAL TABLET 1 tablet by mouth twice daily f or diabetes GLIMEPIRIDE 77646942437 Active Mitch Urbina DO Active GLIMEPIRIDE 2 MG ORAL TABLET 1 po BID GLIMEPI RIDE 48666516138 No Longer Active Mitch Urbina DO Active AMLODIPINE BESYLATE 5 MG ORAL TABLET 1 tablet by mouth daily AMLODIPINE BESYLATE 32204427123 Active Mitch Urbina DO Active PROVIGIL 200 MG ORAL TABLET 1/2 tab po q day MODA FINIL 21888174360 Active Renee Oconnor LPN Active FAMOTIDINE 20 MG ORAL TABLET by mouth twice a day 2017 FAMOTIDINE 70405500371 No Longer Active Mitch Urbina DO Active COLCRYS 0.6 MG ORAL TABLET 1 tab qid prn gout C OLCHICINE 47852717402 No Longer Active Mitch Urbina DO Active KEFLEX 500 MG ORAL CAPSULE 1 po qid CEPHALEXI N 06312035416 No Longer Active Mitch Urbina DO Active LOSARTAN POTASSIUM 100 MG ORAL TABLET 1 pill by mouth daily, for blood pressure LOSARTAN POTASSIUM 65433584239 Active Mitch Arnol Carlitos VELASQUEZ Active AMLODIPINE BESYLATE 5 MG ORAL TABLET 1 tablet by mouth daily 201 01/20/04 AMLODIPINE BESYLATE 82904562188 No Longer Active Joe fulton APRN Active MITIGARE 0.6 MG ORAL CAPSULE 2 capsules at onset of go ut pain, then take one capsule at 1 hour if symptoms persist. COLCHICINE 59 152849791 Active Mitch Urbina DO Active COUMADIN 1 MG ORAL TABLET 2 tabs orally daily with the 5mg tab to equal 7mg daily WARFARIN SODIUM 94637577175 Active Renee Oconnor LPN Active INVOKANA 100 MG ORAL TABLET 1 tablet orally daily CANAGLIFLOZIN 51364024746 Active Mitch Urbina DO Active MECLIZINE HCL 25 MG ORAL TABLET 1 po tid 3 days, then 1/2 ta b tid 3 days MECLIZINE HCL 61780893554 No Longer Active Corey SEGURA Active ALLOPURINOL 300 MG ORAL TABLET Take 1 tablet by mouth daily 2012 ALLOPURINOL 64091105702 No Longer Active Corey SEGURA Active CLONIDINE HCL 0.1 MG ORAL TABLET 1 po bid 7 days, then 1/2 t ab po bid 7 days CLONIDINE HCL 26496856926 No Longer Active Corey SEGURA Active COUMADIN 5 MG ORAL TABLET 1 tab PO daily WARFAR IN SODIUM 63750772532 Active Renee Oconnor LPN Active COUMADIN 4 MG ORAL TABLET 1 tablet daily WARFAR IN SODIUM 06957656018 No Longer Active Corey SEGURA Active POLYTRIM 78672-4.1 UNIT/ML-% OPHTHALMIC SOLUTION 1 rui p in affected eye every 3 hours while awake x 7 days POLYMYXIN B-TRIMETHOP RIM 71415278945 No Longer Active Corey SEGURA Active LOSARTAN POTASSIUM-HCTZ 100-12.5 MG ORAL TABLET 1 by m outh daily for high blood pressure LOSARTAN POTASSIUM-HCTZ 70192972297 No Longer A ctive Mitch Urbina DO Active LISINOPRIL-HYDROCHLOROTHIAZIDE 20-12.5 MG ORAL TABLET 1 tab by m outh daily LISINOPRIL-HYDROCHLOROTHIAZIDE 11245564922 No Longer Active Mitch Urbina DO Active LISINOPRIL 20 MG ORAL TABLET 1 tab po at HS LIS INOPRIL 52382622518 No Longer Active Mitch Urbina DO Active COUMADIN 5 MG ORAL TABLET 1 by mouth every other day 2 WARFARIN SODIUM 05064879592 No Longer Active Mitch Urbina DO Active COUMADIN 6 MG ORAL TABLET 1 by mouth every other day 2 WARFARIN SODIUM 70044912359 No Longer Active Mitch Urbina DO Active SIMVASTATIN 40 MG ORAL TABLET 1 tab daily at bedtime SIMVASTATIN 61342734304 Active Maria Rivas RN Active SIMVASTATIN 20 MG ORAL TABLET 1 tab daily at bedtime 2 SIMVASTATIN 44839648759 No Longer Active Mitch Urbina DO Active LOVENOX 100 MG/ML SUBCUTANEOUS SOLUTION One injection twice a da y ENOXAPARIN SODIUM 76050075311 No Longer Active Carmine Yusuf MD Active JANUVIA 50 MG ORAL TABLET Take one by mouth daily SITAGLIPTIN PHOSPHATE 78838126524 Active Renee Oconnor LPN Active JANUVIA 100 MG ORAL TABLET 1/2 by mouth every day 2011 SITAGLIPTIN PHOSPHATE 03705481411 No Longer Active Bijal Segal RN Acti ve METFORMIN HCL 500 MG ORAL TABLET 2 by mouth twice daily METFORMIN HCL 50721082792 No Longer Active Renee Oconnor LPN Active COLCRYS 0.6 MG ORAL TABLET 1 po q 6 hours prn gout pain COLCHICINE 03271117304 No Longer Active Camila Reese Active LISINOPRIL 5 MG ORAL TABLET 1 by mouth every day 11/17 LISINOPRIL 95396093129 No Longer Active Nguyen nAa Active KLOR-CON 20 MEQ ORAL PACKET Take one by mouth daily 09/10/08 POTASSIUM CHLORIDE 71511416278 No Longer Active Nguyen Ana Active FUROSEMIDE 40 MG ORAL TABLET 1 by mouth daily F UROSEMIDE 82583331809 No Longer Active Nguyen Ana Active PROVIGIL 100 MG ORAL TABLET Take one by mouth daily 08/20/04 MODAFINIL 56214513082 No Longer Active Mitch Urbina DO Active BACTRIM DS 800-160 MG ORAL TABLET 1 tab by mouth twice daily 201 10/19/09 TRIMETHOPRIM-SULFAMETHOXAZOLE 11521373817 No Longer Active Elian Hays MD Active ADULT ASPIRIN LOW STRENGTH 81 MG ORAL TABLET DISINTEGR ATING 1 by mouth every daily ASPIRIN 21772813002 Active Mitch Urbina DO Ac tive METOPROLOL TARTRATE 50 MG ORAL TABLET 1 by mouth twice daily METOPROLOL TARTRATE 49459305731 Active Maria Rivas RN Ac tive BACTRIM DS 800-160 MG ORAL TABLET 1 tab by mouth twice daily 201 10/19/09 BACTRIM DS 800-160 MG ORAL TABLET 618479 TRIMETHOPRIM-SULFAMETHOXAZOLE Inactive PROVIGIL 100 MG ORAL TABLET Take one by mouth daily 08/20/04 PROVIGIL 100 MG ORAL TABLET 973593 MODAFINIL Inactive FUROSEMIDE 40 MG ORAL TABLET 1 by mouth daily FUROSEMIDE 40 MG ORAL TABLET 295697 FUROSEMIDE Inactive KLOR-CON 20 MEQ ORAL PACKET Take one by mouth daily 09/10/08 KLOR- CON 20 MEQ ORAL PACKET 4187505 POTASSIUM CHLORIDE Inactive LISINOPRIL 5 MG ORAL TABLET 1 by mouth every day 11/17 LISINOPRIL 5 MG ORAL TABLET 567501 LISINOPRIL Inactive COLCRYS 0.6 MG ORAL TABLET 1 po q 6 hours prn gout pain COLCRYS 0.6 MG ORAL TABLET 772915 COLCHICINE Inactive JANUVIA 100 MG ORAL TABLET 1/2 by mouth every day 2011 JANUVIA 100 MG ORAL TABLET SITAGLIPTIN PHOSPHATE Inactive SIMVASTATIN 20 MG ORAL TABLET 1 tab daily at bedtime 2 SIMVASTATIN 20 MG ORAL TABLET 717468 SIMVASTATIN Inactive COUMADIN 6 MG ORAL TABLET 1 by mouth every other day 2 COUMADIN 6 MG ORAL TABLET 381868 WARFARIN SODIUM Inactive COUMADIN 5 MG ORAL TABLET 1 by mouth every other day 2 COUMADIN 5 MG ORAL TABLET 112356 WARFARIN SODIUM Inactive LISINOPRIL 20 MG ORAL TABLET 1 tab po at HS LISINOPRIL 20 MG ORAL TABLET 447414 LISINOPRIL Inactive LISINOPRIL-HYDROCHLOROTHIAZIDE 20-12.5 MG ORAL TABLET 1 tab by m outh daily LISINOPRIL-HYDROCHLOROTHIAZIDE 20-12.5 MG ORAL TABLET 165761 LISINOPRIL-HYDROCHLOROTHIAZIDE Inactive POLYTRIM 26051-7.1 UNIT/ML-% OPHTHALMIC SOLUTION 1 rui p in affected eye every 3 hours while awake x 7 days POLYTRIM 1000 0-0.1 UNIT/ML-% OPHTHALMIC SOLUTION 015012 POLYMYXIN B-TRIMETHOPRIM Inactive COUMADIN 4 MG ORAL TABLET 1 tablet daily COUMADIN 4 MG ORAL TABLET 602253 WARFARIN SODIUM Inactive CLONIDINE HCL 0.1 MG ORAL TABLET 1 po bid 7 days, then 1/2 t ab po bid 7 days CLONIDINE HCL 0.1 MG ORAL TABLET 440648 CLONIDIN E HCL Inactive ALLOPURINOL 300 MG ORAL TABLET Take 1 tablet by mouth daily 2012 ALLOPURINOL 300 MG ORAL TABLET 460424 ALLOPURINOL I nactive MECLIZINE HCL 25 MG ORAL TABLET 1 po tid 3 days, then 1/2 ta b tid 3 days MECLIZINE HCL 25 MG ORAL TABLET 905648 MECLIZINE HCL Inactive AMLODIPINE BESYLATE 5 MG ORAL TABLET 1 tablet by mouth daily 201 01/20/04 AMLODIPINE BESYLATE 5 MG ORAL TABLET 073613 AMLODIPINE BESYLATE Inactive KEFLEX 500 MG ORAL CAPSULE 1 po qid K EFLEX 500 MG ORAL CAPSULE 580857 CEPHALEXIN Inactive COLCRYS 0.6 MG ORAL TABLET 1 tab qid prn gout COLCRYS 0.6 MG ORAL TABLET 435466 COLCHICINE Inactive FAMOTIDINE 20 MG ORAL TABLET by mouth twice a day 2017 FAMOTIDINE 20 MG ORAL TABLET 080958 FAMOTIDINE Inactive GLIMEPIRIDE 2 MG ORAL TABLET 1 po BID GLIMEPIRIDE 2 MG ORAL TABLET 091002 GLIMEPIRIDE Inactive LOVENOX 100 MG/ML SUBCUTANEOUS SOLUTION One injection twice a da y LOVENOX 100 MG/ML SUBCUTANEOUS SOLUTION 117747 ENOXAPAR IN SODIUM Inactive PREDNISONE 20 MG ORAL TABLET 2 tabs daily for 3 days 1 tab d aily for 3 days PREDNISONE 20 MG ORAL TABLET 042093 PREDNISONE Inactive Advance Directives Directive Description Start [...] mg/dL Encounters Code Encounter Date Provider Facility CPT-06724 Level 3 Est. Patient 15:18:36 CDT Becky anderson [facility] CPT-25347 [id number] Vst-Est Level IV 10:06:35 CDT Stephy Ambrose [facility] CPT-92216 [id number] Vst-Est Level IV 10:52:00 REVENUE SETTLEMENTS ADMINISTRATOR Stephy Ambrose [facility] CPT-26236 Level 3 Est. Patient 18:25:53 CDT Mitch luis [facility] CPT-16726 Level 3 Est. Patient 19:43:34 CDT Mitch luis [facility] CPT-54109 Level 4 Est. Patient 09:30:18 CDT Mitch luis [facility] CPT-25587 Level 3 Est. Patient 15:10:14 CDT Joe kamara [facility] CPT-73690 Level 3 Est. Patient 15:03:46 CDT Joe kamara [facility] CPT-95446 Level 3 Est. Patient 14:21:06 CDT Mitch luis [facility] CPT-72219 Level 3 Est. Patient 14:52:06 CDT Joe kamara [facility] CPT-76374 Level 3 Est. Patient 09:34:30 REVENUE SETTLEMENTS ADMINISTRATOR Mitch luis [facility] CPT-48850 Level 3 Est. Patient 09:37:15 CDT Mitch luis [facility] CPT-45068 Level 3 Est. Patient 17:01:00 REVENUE SETTLEMENTS ADMINISTRATOR Mitch luis [facility] CPT-12562 Level 3 Est. Patient 13:53:19 REVENUE SETTLEMENTS ADMINISTRATOR Mitch luis [facility] CPT-58808 Level 3 Est. Patient 19:19:37 REVENUE SETTLEMENTS ADMINISTRATOR Mitch luis [facility] CPT-84349 Level 3 Est. Patient 13:25:53 REVENUE SETTLEMENTS ADMINISTRATOR Tavo toure MD [facility] CPT-56347 Level 3 Est. Patient 18:17:28 CDT Mitch luis [facility] CPT-42754 Level 3 Est. Patient 15:22:57 CDT Mitch luis [facility] CPT-46080 Level 3 Est. Patient 18:21:50 CDT Mitch luis [facility] CPT-00507 Level 3 Est. Patient 18:20:38 CDT Mitch luis [facility] CPT-95985 Level 3 Est. Patient 15:37:55 CDT Mitch luis [facility] CPT-21090 Level 2 Est. Patient 15:54:44 CDT Carmine benton MD [facility]-42118 Level 3 Est. Patient 21:46:01 REVENUE SETTLEMENTS ADMINISTRATOR Mitch luis [facility] CPT-65829 Level 3 Est. Patient 22:15:50 CDT Mitch luis [facility] CPT-49262 Level 3 Est. Patient 10:48:15 CDT Mitch luis [facility] CPT-36920 Level 3 Est. Patient 23:20:57 CDT Tavo toure MD [facility] CPT-95389 Level 3 Est. Patient 16:26:13 CDT Mitch luis [facility] Procedures Code Procedure Name Date Entry Date Standard Desc ription CPT-05638 Venipuncture Draw Fee 14:56:20 CDT CPT-JTINJ Asp/Joint Injection 18:47:02 CDT CPT-88725 Venipuncture Draw Fee 09:26:17 CDT CPT-31237 PT/INR - LAB USE ONLY 13:32:49 REVENUE SETTLEMENTS ADMINISTRATOR CPT-66358 Venipuncture Draw Fee 13:32:49 REVENUE SETTLEMENTS ADMINISTRATOR CPT-57631 PT/INR - LAB USE ONLY 10:34:49 REVENUE SETTLEMENTS ADMINISTRATOR CPT-78702 Venipuncture Draw Fee 10:34:48 REVENUE SETTLEMENTS ADMINISTRATOR CPT-97679 PT/INR - LAB USE ONLY 09:22:03 REVENUE SETTLEMENTS ADMINISTRATOR CPT-30765 Venipuncture Draw Fee 09:22:02 REVENUE SETTLEMENTS ADMINISTRATOR CPT-24609 Hemoccult IFOBT - LAB USE ONLY 10:27:22 CDT CPT-33222 Venipuncture Draw Fee 08:27:08 CDT CPT-24995 Liver Profile - LAB USE ONLY 08:27:07 CDT 2 CPT-83699 Microalbumin - LAB USE ONLY 08:27:07 CDT 20 25/05/09 CPT-86855 PT/INR - LAB USE ONLY 08:27:07 CDT CPT-13084 HGBA1C - LAB USE ONLY 08:27:07 CDT CPT-62613 CBC - LAB USE ONLY 08:27:07 CDT CPT-78148 Venipuncture Draw Fee 11:09:14 CDT CPT-28107 Venipuncture Draw Fee 08:32:21 REVENUE SETTLEMENTS ADMINISTRATOR CPT-60848 Venipuncture Draw Fee 09:38:56 REVENUE SETTLEMENTS ADMINISTRATOR CPT-18942 No Charge Offi Visit 21:36:07 CDT 1 CPT-30702 Venipuncture Draw Fee 10:13:28 REVENUE SETTLEMENTS ADMINISTRATOR CPT-12922 Venipuncture Draw Fee 08:31:11 CDT CPT-93786 Aspir/Inject Med Joint 18:17:28 CDT CPT-40841 Venipuncture Draw Fee 10:13:30 CDT CPT-79837 Venipuncture Draw Fee 08:31:43 REVENUE SETTLEMENTS ADMINISTRATOR CPT-JTINJ Joint Injection 18:34:50 CDT CPT-32366 Knee 3V 12:25:09 CDT CPT-52919 Venipuncture Draw Fee 12:15:57 CDT CPT-060 Medical Surveillance Exam 21:31:43 CDT 2011 CPT-97708 Venipuncture Draw Fee 08:32:05 REVENUE SETTLEMENTS ADMINISTRATOR CPT-OV Office Visit 18:19:06 CDT
--- OUTSIDE RECORDS SUMMARY | 2020-01-18 12:12 | XMS REPORT | Clinical Summary ---
Author Author Admin, Mitch Leon Organization [facility] Address Unknown Phone Unavailable Allergies, [...] of vessel, enterprise or graft EDEMA 782.3 Active Mitch Urbina [...] 1 tablet by mouth daily AMLODIPINE BESYLATE 13125496887 Active Mitch Urbina DO Active MECLIZINE HCL 25 MG TAB 1 po tid 3 days, then 1/2 tab tid 3 days MECLIZINE HCL 47529209158 No Longer Active Corey SEGURA Active ALLOPURINOL 300 MG TABS Take 1 tablet by mouth daily 2 ALLOPURINOL 42017752119 No Longer Active Corey SEGURA Activ e CLONIDINE HCL 0.1 MG TABS 1 po bid 7 days, then 1/2 tab po b id 7 days CLONIDINE HCL 73909233350 No Longer Active Corey SEGURA Active COUMADIN 5 MG TABS 1 tab PO daily WARFARIN SODIUM 62674553425 Active Mitch Urbina DO Active COUMADIN 4 MG TABS 1 tablet daily WARFARIN SODI UM 14737796720 No Longer Active Corey SEGURA Active POLYTRIM 55897-4.1 UNIT/ML-% SOLN 1 drop in affected e ye every 3 hours while awake x 7 days POLYMYXIN B-TRIMETHOPRIM 04254522158 N o Longer Active Corey SEGURA Active LOSARTAN POTASSIUM-HCTZ 100-12.5 MG TABS 1 by mouth da rocky for high blood pressure LOSARTAN POTASSIUM-HCTZ 40545247037 Active Stephy Urbina DO Active LISINOPRIL-HYDROCHLOROTHIAZIDE 20-12.5 MG TABS 1 tab by mouth da rocky LISINOPRIL-HYDROCHLOROTHIAZIDE 36197836710 No Longer Active Mitch luis DO Active LISINOPRIL 20 MG TABS 1 tab po at HS LISINOPRIL 11825997944 No Longer Active Mitch Urbina DO Active COUMADIN 5 MG TABS 1 by mouth every other day WARFARIN SODIUM 41479212850 No Longer Active Mitch Urbina DO Active COUMADIN 6 MG TABS 1 by mouth every other day WARFARIN SODIUM 05808927469 No Longer Active Mitch Urbina DO Active COLCRYS 0.6 MG TABS 1 tab qid prn gout COLCHICINE 71235506632 Active Corey SEGURA Active SIMVASTATIN 40 MG TABS 1 tab daily at bedtime S IMVASTATIN 79238984218 Active Mitch Urbina DO Active SIMVASTATIN 20 MG TABS 1 tab daily at bedtime S IMVASTATIN 19243382207 No Longer Active Mitch Urbina DO Active LOVENOX 100 MG/ML SC SOLN One injection twice a day 09/15/15 ENOXAPARIN SODIUM 06068703641 No Longer Active Carmine Navarrete ctive JANUVIA 50 MG TABS Take one by mouth daily DIEGO GLIPTIN PHOSPHATE 38644634507 Active Domi Rivera MA Active JANUVIA 100 MG TABS 1/2 by mouth every day DIEGO GLIPTIN PHOSPHATE 18106718490 No Longer Active Bijal Segal RN Active METFORMIN HCL 500 MG TABS 2 by mouth twice daily METFORMIN HCL 57754153856 Active Mitch Urbina DO Active GLIMEPIRIDE 4 MG TABS 1 tab po bid GLIMEPIRIDE 983867 42543 Active Mitch Urbina DO Active COLCRYS 0.6 MG TABS 1 po q 6 hours prn gout pain 03/02 COLCHICINE 35842920901 No Longer Active Camila Reese Active LISINOPRIL 5 MG TABS 1 by mouth every day LISIN OPRIL 96737751221 No Longer Active Nguyenmolly Perez Active KLOR-CON 20 MEQ PACK Take one by mouth daily 8 POTASSIUM CHLORIDE 37425639463 No Longer Active Nguyen Perez Active FUROSEMIDE 40 MG TABS 1 by mouth daily FUROSEMI DE 83464582867 No Longer Active Nguyen Perez Active PROVIGIL 200 MG TABS 1/2 tab po q day MODAFINIL 62805 705395 Active Kathie Juan RPT,RMA Active PROVIGIL 100 MG TABS Take one by mouth daily MO DAFINIL 38575066189 No Longer Active Mitch Urbina DO Active BACTRIM DS 800-160 MG TAB 1 tab by mouth twice daily 2 TRIMETHOPRIM-SULFAMETHOXAZOLE 93834011272 No Longer Active Renan Hays MD Active FAMOTIDINE 20 MG TABS by mouth twice a day FAMOTI DINE 64677594073 Active Mitch Urbina DO Active ADULT ASPIRIN LOW STRENGTH 81 MG TBDP 1 by mouth every daily ASPIRIN 53387059418 Active Mitch Urbina DO Active METOPROLOL TARTRATE 50 MG TABS 1 by mouth twice daily METOPROLOL TARTRATE 49042588267 Active Kathie Juan RPT,RMA Acti ve BACTRIM DS 800-160 MG TAB 1 tab by mouth twice daily 2 BACTRIM DS 800-160 MG TAB TRIMETHOPRIM-SULFAMETHOXAZOLE Inac tive PROVIGIL 100 MG TABS Take one by mouth daily 4 PROVIGIL 100 MG TABS 657346 MODAFINIL Inactive FUROSEMIDE 40 MG TABS 1 by mouth daily FU ROSEMIDE 40 MG TABS 920678 FUROSEMIDE Inactive KLOR-CON 20 MEQ PACK Take one by mouth daily 8 KLOR-CON 20 MEQ PACK 416331 POTASSIUM CHLORIDE Inactive LISINOPRIL 5 MG TABS 1 by mouth every day LISINOPRIL 5 MG TABS 570043 LISINOPRIL Inactive COLCRYS 0.6 MG TABS 1 po q 6 hours prn gout pain 03/02 COLCRYS 0.6 MG TABS 692523 COLCHICINE Inactive JANUVIA 100 MG TABS 1/2 by mouth every day JANUVI A 100 MG TABS SITAGLIPTIN PHOSPHATE Inactive SIMVASTATIN 20 MG TABS 1 tab daily at bedtime SIMVASTATIN 20 MG TABS 669258 SIMVASTATIN Inactive COUMADIN 6 MG TABS 1 by mouth every other day COUMADIN 6 MG TABS 064500 WARFARIN SODIUM Inactive COUMADIN 5 MG TABS 1 by mouth every other day COUMADIN 5 MG TABS 202942 WARFARIN SODIUM Inactive LISINOPRIL 20 MG TABS 1 tab po at HS KOKI NOPRIL 20 MG TABS 130403 LISINOPRIL Inactive LISINOPRIL-HYDROCHLOROTHIAZIDE 20-12.5 MG TABS 1 tab by mouth da rocky LISINOPRIL-HYDROCHLOROTHIAZIDE 20-12.5 MG TABS 716434 LISINOPRIL-HYDROCHLOROTHIAZIDE Inactive POLYTRIM 98743-8.1 UNIT/ML-% SOLN 1 drop in affected e ye every 3 hours while awake x 7 days POLYTRIM 63144-1.1 UNIT/ML-% SOLN 27887 7 POLYMYXIN B-TRIMETHOPRIM Inactive COUMADIN 4 MG TABS 1 tablet daily COUMADIN 4 MG TABS 782542 WARFARIN SODIUM Inactive CLONIDINE HCL 0.1 MG TABS 1 po bid 7 days, then 1/2 tab po b id 7 days CLONIDINE HCL 0.1 MG TABS 135870 CLONIDINE HCL I nactive ALLOPURINOL 300 MG TABS Take 1 tablet by mouth daily 2 ALLOPURINOL 300 MG TABS 197735 ALLOPURINOL Inactive MECLIZINE HCL 25 MG TAB 1 po tid 3 days, then 1/2 tab tid 3 days MECLIZINE HCL 25 MG TAB 840929 MECLIZINE HCL Inactive LOVENOX 100 MG/ML SC SOLN One injection twice a day 09/15/15 LOVENOX 100 MG/ML SC SOLN 170488 ENOXAPARIN SODIUM Inactive Vital Signs Date Name [...] Description Chart Maintenance: Hemoccult added to fl oweet - Chemistry occult blood, stool (E&M) Positive Lab Report: CBC W/DIFF - Hematology leukocyte [...] Ag - Chemistry sodium, serum 141 mmol/L 250-025 7801/07/06 potassium, serum 4.4 mmol/L 3.5-5.2 chloride, serum [...] Panel - Chemistry sodium, serum 137 mmol/L 621-603 6573/11/14 potassium, serum 4.4 mmol/L 3.5-5.2 chloride, serum [...] 8.0 % 4.3-6.0 cholesterol, serum 130 mg/dL 795-846 9205/11/14 triglyceride, serum, fasting 288 mg/dL 30-200 HDL cholesterol, serum 33 mg/dL 32-96 LDL cholesterol, serum 39 mg/dL 0-130 Lab Report: Comp. Metabolic Panel, HGBA1 C, Lipid Panel, Prothrombin Time - Chemistry sodium, serum 136 mmol/L 405-994 3968/12/02 potassium, serum 4.4 mmol/L 3.5-5.2 chloride, serum [...] 7.6 % 4.3-6.0 cholesterol, serum 117 mg/dL 630-272 3910/12/02 triglyceride, serum, fasting 226 mg/dL 30-200 HDL [...] 7.0 % 4.3-6.0 cholesterol, serum 120 mg/dL 875-485 5863/07/06 triglyceride, serum, fasting 186 mg/dL 30-200 HDL [...] ratio (INR) 2.6 1.0-3.5 prothrombin time (patient) 18.1 SECS s 11.1-13.4 international normalized ratio (INR) 2.2 1.0-3.5 prothrombin time (patient) 16.0 SECS s 11.1-13.4 international normalized ratio (INR) 1.7 1.0-3.5 Encounters Code Encounter Date Provider Facility CPT-19061 Level 3 Est. Patient 09:37:15 CDT [facility] CPT-82554 Level 3 Est. Patient 17:01:00 IT TECHNICIAN Mtich luis [facility] CPT-73200 Level 3 Est. Patient 13:53:19 IT TECHNICIAN Mitch Arnol L janelle [facility] CPT-69958 Level 3 Est. Patient 19:19:37 IT TECHNICIAN Mitch luis [facility] CPT-65133 Level 3 Est. Patient 13:25:53 IT TECHNICIAN Tavo toure MD [facility]-82056 Level 3 Est. Patient 18:17:28 CDT Mitch Ambrose L janelle [facility] CPT-97686 Level 3 Est. Patient 15:22:57 CDT Mitch Arnol [facility] CPT-90468 Level 3 Est. Patient 18:21:50 CDT Mitch W L [facility] CPT-54051 Level 3 Est. Patient 18:20:38 CDT Mitch W L janelle [facility]-09372 Level 3 Est. Patient 15:37:55 CDT Mitch W L ee [facility] CPT-69516 Level 2 Est. Patient 15:54:44 CDT Carmine benton MD [facility]-84715 Level 3 Est. Patient 21:46:01 IT TECHNICIAN Mitch luis [facility] CPT-41877 Level 3 Est. Patient 22:15:50 CDT Mitch luis DO [facility] CPT-24163 Level 3 Est. Patient 10:48:15 CDT Mitch luis DO [facility] CPT-94174 Level 3 Est. Patient 23:20:57 CDT Tavo touer MD [facility] CPT-05695 Level 3 Est. Patient 16:26:13 CDT Mitch luis [facility] Procedures Code Procedure Name Date Entry Date Standard Desc ription CPT-36845 No Charge Offi Visit 21:36:07 CDT 1 CPT-58945 Venipuncture Draw Fee 10:13:28 IT TECHNICIAN CPT-28968 Venipuncture Draw Fee 08:31:11 CDT CPT-76219 Aspir/Inject Med Joint 18:17:28 CDT CPT-00460 Venipuncture Draw Fee 10:13:30 CDT CPT-34662 Venipuncture Draw Fee 08:31:43 IT TECHNICIAN CPT-JTINJ Joint Injection 18:34:50 CDT CPT-97821 Knee 3V 12:25:09 CDT CPT-70925 Venipuncture Draw Fee 12:15:57 CDT CPT-060 Medical Surveillance Exam 21:31:43 CDT 2011 CPT-83080 Venipuncture Draw Fee 08:32:05 IT TECHNICIAN CPT-OV Office Visit 18:19:06 CDT
--- OUTSIDE RECORDS SUMMARY | 2020-01-18 12:12 | XMS REPORT | Clinical Summary ---
Author Author Admin, Mitch Leon Organization [facility] [place] Address Unknown Phone Unavailable Allergies, Adverse Reactions, [...] week, then once daily FLUTICASONE NC OPIONATE 35105546904 Active Becky Sell [employer] Active PREDNISONE 20 MG ORAL TABLET 2 tabs daily for 3 days 1 tab d aily for 3 days PREDNISONE 85876912734 No Longer Active Becky Sell [employer] Active MINOXIDIL 2.5 MG ORAL TABLET 1 tablet twice daily for high b lood pressure MINOXIDIL 68234060429 Active Mitch Urbina DO Ac tive METFORMIN HCL ER 500 MG ORAL TABLET EXTENDED RELEASE 2 4 HOUR 2 tablets by mouth twice daily METFORMIN HCL 73735169260 Active Mitch Urbina DO Active GLIMEPIRIDE 4 MG ORAL TABLET 1 tablet by mouth twice daily f or diabetes GLIMEPIRIDE 55925640141 Active Mitch Urbina DO Active GLIMEPIRIDE 2 MG ORAL TABLET 1 po BID GLIMEPI RIDE 63685235491 No Longer Active Mitch Urbina DO Active AMLODIPINE BESYLATE 5 MG ORAL TABLET 1 tablet by mouth daily AMLODIPINE BESYLATE 39186687373 Active Mitch Urbina DO Active PROVIGIL 200 MG ORAL TABLET 1/2 tab po q day MODA FINIL 04364413950 Active Renee Oconnor LPN Active FAMOTIDINE 20 MG ORAL TABLET by mouth twice a day 2017 FAMOTIDINE 53954198269 No Longer Active Mitch Urbina DO Active COLCRYS 0.6 MG ORAL TABLET 1 tab qid prn gout C OLCHICINE 45934608891 No Longer Active Mitch Urbina DO Active KEFLEX 500 MG ORAL CAPSULE 1 po qid CEPHALEXI N 63586574593 No Longer Active Mitch Urbina DO Active LOSARTAN POTASSIUM 100 MG ORAL TABLET 1 pill by mouth daily, for blood pressure LOSARTAN POTASSIUM 96442968311 Active Mitch Arnol Carlitos VELASQUEZ Active AMLODIPINE BESYLATE 5 MG ORAL TABLET 1 tablet by mouth daily 201 01/20/04 AMLODIPINE BESYLATE 24793832897 No Longer Active Joe fulton APRN Active MITIGARE 0.6 MG ORAL CAPSULE 2 capsules at onset of go ut pain, then take one capsule at 1 hour if symptoms persist. COLCHICINE 59 240135386 Active Mitch Urbina DO Active COUMADIN 1 MG ORAL TABLET 2 tabs orally daily with the 5mg tab to equal 7mg daily WARFARIN SODIUM 92954824113 Active Renee Oconnor LPN Active INVOKANA 100 MG ORAL TABLET 1 tablet orally daily CANAGLIFLOZIN 99709033374 Active Mitch Urbina DO Active MECLIZINE HCL 25 MG ORAL TABLET 1 po tid 3 days, then 1/2 ta b tid 3 days MECLIZINE HCL 28820378341 No Longer Active Corey SEGURA Active ALLOPURINOL 300 MG ORAL TABLET Take 1 tablet by mouth daily 2012 ALLOPURINOL 11733986213 No Longer Active Corey SEGURA Active CLONIDINE HCL 0.1 MG ORAL TABLET 1 po bid 7 days, then 1/2 t ab po bid 7 days CLONIDINE HCL 49907075100 No Longer Active Corey SEGURA Active COUMADIN 5 MG ORAL TABLET 1 tab PO daily WARFAR IN SODIUM 81208911414 Active Renee Ocononr LPN Active COUMADIN 4 MG ORAL TABLET 1 tablet daily WARFAR IN SODIUM 70826310525 No Longer Active Corey SEGURA Active POLYTRIM 83455-3.1 UNIT/ML-% OPHTHALMIC SOLUTION 1 rui p in affected eye every 3 hours while awake x 7 days POLYMYXIN B-TRIMETHOP RIM 28843055817 No Longer Active Corey SEGURA Active LOSARTAN POTASSIUM-HCTZ 100-12.5 MG ORAL TABLET 1 by m outh daily for high blood pressure LOSARTAN POTASSIUM-HCTZ 84490732988 No Longer A ctive Mitch Urbina DO Active LISINOPRIL-HYDROCHLOROTHIAZIDE 20-12.5 MG ORAL TABLET 1 tab by m outh daily LISINOPRIL-HYDROCHLOROTHIAZIDE 85277518471 No Longer Active Mitch Urbina DO Active LISINOPRIL 20 MG ORAL TABLET 1 tab po at HS LIS INOPRIL 79205729817 No Longer Active Mitch Urbina DO Active COUMADIN 5 MG ORAL TABLET 1 by mouth every other day 2 WARFARIN SODIUM 40516100662 No Longer Active Mitch Urbina DO Active COUMADIN 6 MG ORAL TABLET 1 by mouth every other day 2 WARFARIN SODIUM 72809129736 No Longer Active Mitch Urbina DO Active SIMVASTATIN 40 MG ORAL TABLET 1 tab daily at bedtime SIMVASTATIN 20872796273 Active Maria Rivas RN Active SIMVASTATIN 20 MG ORAL TABLET 1 tab daily at bedtime 2 SIMVASTATIN 62548095573 No Longer Active Mitch Urbina DO Active LOVENOX 100 MG/ML SUBCUTANEOUS SOLUTION One injection twice a da y ENOXAPARIN SODIUM 08234997544 No Longer Active Carmine Yusuf MD Active JANUVIA 50 MG ORAL TABLET Take one by mouth daily SITAGLIPTIN PHOSPHATE 75392623354 Active Renee Oconnor LPN Active JANUVIA 100 MG ORAL TABLET 1/2 by mouth every day 2011 SITAGLIPTIN PHOSPHATE 75284711311 No Longer Active Bijal Segal RN Acti ve METFORMIN HCL 500 MG ORAL TABLET 2 by mouth twice daily METFORMIN HCL 28368531800 No Longer Active Renee Oconnor LPN Active COLCRYS 0.6 MG ORAL TABLET 1 po q 6 hours prn gout pain COLCHICINE 69503485281 No Longer Active Camila Reese Active LISINOPRIL 5 MG ORAL TABLET 1 by mouth every day 11/17 LISINOPRIL 96468571735 No Longer Active Nguyen Ana Active KLOR-CON 20 MEQ ORAL PACKET Take one by mouth daily 09/10/08 POTASSIUM CHLORIDE 38709040478 No Longer Active Nguyen Ana Active FUROSEMIDE 40 MG ORAL TABLET 1 by mouth daily F UROSEMIDE 81200155012 No Longer Active Nguyen Ana Active PROVIGIL 100 MG ORAL TABLET Take one by mouth daily 08/20/04 MODAFINIL 68018436877 No Longer Active Mitch Urbina DO Active BACTRIM DS 800-160 MG ORAL TABLET 1 tab by mouth twice daily 201 10/19/09 TRIMETHOPRIM-SULFAMETHOXAZOLE 00858477754 No Longer Active Elian Hays MD Active ADULT ASPIRIN LOW STRENGTH 81 MG ORAL TABLET DISINTEGR ATING 1 by mouth every daily ASPIRIN 36587609988 Active Mitch Urbina DO Ac tive METOPROLOL TARTRATE 50 MG ORAL TABLET 1 by mouth twice daily METOPROLOL TARTRATE 62166327339 Active Maria Rivas RN Ac tive BACTRIM DS 800-160 MG ORAL TABLET 1 tab by mouth twice daily 201 10/19/09 BACTRIM DS 800-160 MG ORAL TABLET 575128 TRIMETHOPRIM-SULFAMETHOXAZOLE Inactive PROVIGIL 100 MG ORAL TABLET Take one by mouth daily 08/20/04 PROVIGIL 100 MG ORAL TABLET 264191 MODAFINIL Inactive FUROSEMIDE 40 MG ORAL TABLET 1 by mouth daily FUROSEMIDE 40 MG ORAL TABLET 644568 FUROSEMIDE Inactive KLOR-CON 20 MEQ ORAL PACKET Take one by mouth daily 09/10/08 KLOR- CON 20 MEQ ORAL PACKET 2417624 POTASSIUM CHLORIDE Inactive LISINOPRIL 5 MG ORAL TABLET 1 by mouth every day 11/17 LISINOPRIL 5 MG ORAL TABLET 390303 LISINOPRIL Inactive COLCRYS 0.6 MG ORAL TABLET 1 po q 6 hours prn gout pain COLCRYS 0.6 MG ORAL TABLET 477242 COLCHICINE Inactive JANUVIA 100 MG ORAL TABLET 1/2 by mouth every day 2011 JANUVIA 100 MG ORAL TABLET SITAGLIPTIN PHOSPHATE Inactive SIMVASTATIN 20 MG ORAL TABLET 1 tab daily at bedtime 2 SIMVASTATIN 20 MG ORAL TABLET 816445 SIMVASTATIN Inactive COUMADIN 6 MG ORAL TABLET 1 by mouth every other day 2 COUMADIN 6 MG ORAL TABLET 246652 WARFARIN SODIUM Inactive COUMADIN 5 MG ORAL TABLET 1 by mouth every other day 2 COUMADIN 5 MG ORAL TABLET 027974 WARFARIN SODIUM Inactive LISINOPRIL 20 MG ORAL TABLET 1 tab po at HS LISINOPRIL 20 MG ORAL TABLET 829275 LISINOPRIL Inactive LISINOPRIL-HYDROCHLOROTHIAZIDE 20-12.5 MG ORAL TABLET 1 tab by m outh daily LISINOPRIL-HYDROCHLOROTHIAZIDE 20-12.5 MG ORAL TABLET 902551 LISINOPRIL-HYDROCHLOROTHIAZIDE Inactive POLYTRIM 92799-2.1 UNIT/ML-% OPHTHALMIC SOLUTION 1 rui p in affected eye every 3 hours while awake x 7 days POLYTRIM 1000 0-0.1 UNIT/ML-% OPHTHALMIC SOLUTION 674035 POLYMYXIN B-TRIMETHOPRIM Inactive COUMADIN 4 MG ORAL TABLET 1 tablet daily COUMADIN 4 MG ORAL TABLET 916775 WARFARIN SODIUM Inactive CLONIDINE HCL 0.1 MG ORAL TABLET 1 po bid 7 days, then 1/2 t ab po bid 7 days CLONIDINE HCL 0.1 MG ORAL TABLET 987483 CLONIDIN E HCL Inactive ALLOPURINOL 300 MG ORAL TABLET Take 1 tablet by mouth daily 2012 ALLOPURINOL 300 MG ORAL TABLET 525461 ALLOPURINOL I nactive MECLIZINE HCL 25 MG ORAL TABLET 1 po tid 3 days, then 1/2 ta b tid 3 days MECLIZINE HCL 25 MG ORAL TABLET 750095 MECLIZINE HCL Inactive AMLODIPINE BESYLATE 5 MG ORAL TABLET 1 tablet by mouth daily 201 01/20/04 AMLODIPINE BESYLATE 5 MG ORAL TABLET 593888 AMLODIPINE BESYLATE Inactive KEFLEX 500 MG ORAL CAPSULE 1 po qid K EFLEX 500 MG ORAL CAPSULE 048484 CEPHALEXIN Inactive COLCRYS 0.6 MG ORAL TABLET 1 tab qid prn gout COLCRYS 0.6 MG ORAL TABLET 469799 COLCHICINE Inactive FAMOTIDINE 20 MG ORAL TABLET by mouth twice a day 2017 FAMOTIDINE 20 MG ORAL TABLET 057466 FAMOTIDINE Inactive GLIMEPIRIDE 2 MG ORAL TABLET 1 po BID GLIMEPIRIDE 2 MG ORAL TABLET 138246 GLIMEPIRIDE Inactive LOVENOX 100 MG/ML SUBCUTANEOUS SOLUTION One injection twice a da y LOVENOX 100 MG/ML SUBCUTANEOUS SOLUTION 991462 ENOXAPAR IN SODIUM Inactive PREDNISONE 20 MG ORAL TABLET 2 tabs daily for 3 days 1 tab d aily for 3 days PREDNISONE 20 MG ORAL TABLET 245346 PREDNISONE Inactive Advance Directives Directive Description Start [...] mg/dL Encounters Code Encounter Date Provider Facility CPT-12069 Level 3 Est. Patient 15:18:36 CDT Becky anderson [facility] CPT-56468 [id number] Vst-Est Level IV 10:06:35 CDT Stephy Ambrose [facility] CPT-76920 [id number] Vst-Est Level IV 10:52:00 DISPATCH CLERK Stephy Ambrose [facility] CPT-83587 Level 3 Est. Patient 18:25:53 CDT Mitch luis [facility] CPT-37435 Level 3 Est. Patient 19:43:34 CDT Mitch luis [facility] CPT-06658 Level 4 Est. Patient 09:30:18 CDT Mitch luis [facility] CPT-39084 Level 3 Est. Patient 15:10:14 CDT Joe kamara [facility] CPT-63406 Level 3 Est. Patient 15:03:46 CDT Joe kamara [facility] CPT-68070 Level 3 Est. Patient 14:21:06 CDT Mitch luis [facility] CPT-34503 Level 3 Est. Patient 14:52:06 CDT Joe kamara [facility] CPT-39744 Level 3 Est. Patient 09:34:30 DISPATCH CLERK Mitch luis [facility] CPT-69967 Level 3 Est. Patient 09:37:15 CDT Mitch luis [facility] CPT-08479 Level 3 Est. Patient 17:01:00 DISPATCH CLERK Mitch luis [facility] CPT-95030 Level 3 Est. Patient 13:53:19 DISPATCH CLERK Mitch luis [facility] CPT-29527 Level 3 Est. Patient 19:19:37 DISPATCH CLERK Mitch luis [facility] CPT-80921 Level 3 Est. Patient 13:25:53 DISPATCH CLERK Tavo toure MD [facility] CPT-71913 Level 3 Est. Patient 18:17:28 CDT Mitch luis [facility] CPT-77101 Level 3 Est. Patient 15:22:57 CDT Mitch luis [facility] CPT-43396 Level 3 Est. Patient 18:21:50 CDT Mitch luis [facility] CPT-60390 Level 3 Est. Patient 18:20:38 CDT Mitch luis [facility] CPT-84278 Level 3 Est. Patient 15:37:55 CDT Mitch luis [facility] CPT-05091 Level 2 Est. Patient 15:54:44 CDT Carmine benton MD [facility]-12828 Level 3 Est. Patient 21:46:01 DISPATCH CLERK Mitch luis [facility] CPT-08404 Level 3 Est. Patient 22:15:50 CDT Mitch luis [facility] CPT-69166 Level 3 Est. Patient 10:48:15 CDT Mitch ulis [facility] CPT-99696 Level 3 Est. Patient 23:20:57 CDT Tavo toure MD [facility] CPT-91165 Level 3 Est. Patient 16:26:13 CDT Mitch luis [facility] Procedures Code Procedure Name Date Entry Date Standard Desc ription CPT-10079 Venipuncture Draw Fee 14:56:20 CDT CPT-JTINJ Asp/Joint Injection 18:47:02 CDT CPT-59601 Venipuncture Draw Fee 09:26:17 CDT CPT-23632 PT/INR - LAB USE ONLY 13:32:49 DISPATCH CLERK CPT-51932 Venipuncture Draw Fee 13:32:49 DISPATCH CLERK CPT-46558 PT/INR - LAB USE ONLY 10:34:49 DISPATCH CLERK CPT-05956 Venipuncture Draw Fee 10:34:48 DISPATCH CLERK CPT-73961 PT/INR - LAB USE ONLY 09:22:03 DISPATCH CLERK CPT-04782 Venipuncture Draw Fee 09:22:02 DISPATCH CLERK CPT-23140 Hemoccult IFOBT - LAB USE ONLY 10:27:22 CDT CPT-40905 Venipuncture Draw Fee 08:27:08 CDT CPT-49621 Liver Profile - LAB USE ONLY 08:27:07 CDT 2 CPT-20636 Microalbumin - LAB USE ONLY 08:27:07 CDT 20 25/05/09 CPT-17683 PT/INR - LAB USE ONLY 08:27:07 CDT CPT-44064 HGBA1C - LAB USE ONLY 08:27:07 CDT CPT-46514 CBC - LAB USE ONLY 08:27:07 CDT CPT-20360 Venipuncture Draw Fee 11:09:14 CDT CPT-06497 Venipuncture Draw Fee 08:32:21 DISPATCH CLERK CPT-41950 Venipuncture Draw Fee 09:38:56 DISPATCH CLERK CPT-09020 No Charge Offi Visit 21:36:07 CDT 1 CPT-38632 Venipuncture Draw Fee 10:13:28 DISPATCH CLERK CPT-94144 Venipuncture Draw Fee 08:31:11 CDT CPT-17724 Aspir/Inject Med Joint 18:17:28 CDT CPT-80516 Venipuncture Draw Fee 10:13:30 CDT CPT-91632 Venipuncture Draw Fee 08:31:43 DISPATCH CLERK CPT-JTINJ Joint Injection 18:34:50 CDT CPT-57856 Knee 3V 12:25:09 CDT CPT-28024 Venipuncture Draw Fee 12:15:57 CDT CPT-060 Medical Surveillance Exam 21:31:43 CDT 2011 CPT-77416 Venipuncture Draw Fee 08:32:05 DISPATCH CLERK CPT-OV Office Visit 18:19:06 CDT
--- OUTSIDE RECORDS SUMMARY | 2020-01-18 12:13 | XMS REPORT | Clinical Summary ---
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 MINOXIDIL 2.5 MG ORAL TABLET 1 tablet twice daily for high b lood pressure MINOXIDIL 13977492303 Active Mitch Urbina DO Ac tive METFORMIN HCL ER 500 MG ORAL TABLET EXTENDED RELEASE 2 4 HOUR 2 tablets by mouth twice daily METFORMIN HCL 53392068434 Active Mitch Urbina DO Active GLIMEPIRIDE 4 MG ORAL TABLET 1 tablet by mouth twice daily f or diabetes GLIMEPIRIDE 04940831927 Active Mitch Urbina DO Active GLIMEPIRIDE 2 MG ORAL TABLET 1 po BID GLIMEPI RIDE 38289934693 No Longer Active Mitch Urbina DO Active AMLODIPINE BESYLATE 5 MG ORAL TABLET 1 tablet by mouth daily AMLODIPINE BESYLATE 10370674802 Active Mitch Urbina DO Active PROVIGIL 200 MG ORAL TABLET 1/2 tab po q day MODA FINIL 09257259386 Active Renee Oconnor LPN Active FAMOTIDINE 20 MG ORAL TABLET by mouth twice a day 2017 FAMOTIDINE 68178854497 No Longer Active Mitch Urbina DO Active COLCRYS 0.6 MG ORAL TABLET 1 tab qid prn gout C OLCHICINE 73532279015 No Longer Active Mitch Urbina DO Active KEFLEX 500 MG ORAL CAPSULE 1 po qid CEPHALEXI N 52983979781 No Longer Active Mitch Urbina DO Active LOSARTAN POTASSIUM 100 MG ORAL TABLET 1 pill by mouth daily, for blood pressure LOSARTAN POTASSIUM 54327969996 Active Mitch Arnol Carlitos VELASQUEZ Active AMLODIPINE BESYLATE 5 MG ORAL TABLET 1 tablet by mouth daily 201 01/20/04 AMLODIPINE BESYLATE 61139092634 No Longer Active Joe fulton APRN Active MITIGARE 0.6 MG ORAL CAPSULE 2 capsules at onset of go ut pain, then take one capsule at 1 hour if symptoms persist. COLCHICINE 59 783551815 Active Mitch Urbina DO Active COUMADIN 1 MG ORAL TABLET 2 tabs orally daily with the 5mg tab to equal 7mg daily WARFARIN SODIUM 61565617084 Active Renee Oconnor LPN Active INVOKANA 100 MG ORAL TABLET 1 tablet orally daily CANAGLIFLOZIN 13765362201 Active Mitch Urbina DO Active MECLIZINE HCL 25 MG ORAL TABLET 1 po tid 3 days, then 1/2 ta b tid 3 days MECLIZINE HCL 22421418663 No Longer Active Corey SEGURA Active ALLOPURINOL 300 MG ORAL TABLET Take 1 tablet by mouth daily 2012 ALLOPURINOL 15339217703 No Longer Active Corey SEGURA Active CLONIDINE HCL 0.1 MG ORAL TABLET 1 po bid 7 days, then 1/2 t ab po bid 7 days CLONIDINE HCL 47084985197 No Longer Active Corey SEGURA Active COUMADIN 5 MG ORAL TABLET 1 tab PO daily WARFAR IN SODIUM 13864501284 Active Renee Oconnor LPN Active COUMADIN 4 MG ORAL TABLET 1 tablet daily WARFAR IN SODIUM 46204749427 No Longer Active Corey SEGURA Active POLYTRIM 17456-3.1 UNIT/ML-% OPHTHALMIC SOLUTION 1 rui p in affected eye every 3 hours while awake x 7 days POLYMYXIN B-TRIMETHOP RIM 08540794353 No Longer Active Corey SEGURA Active LOSARTAN POTASSIUM-HCTZ 100-12.5 MG ORAL TABLET 1 by m outh daily for high blood pressure LOSARTAN POTASSIUM-HCTZ 58544588132 No Longer A ctive Mitch Urbina DO Active LISINOPRIL-HYDROCHLOROTHIAZIDE 20-12.5 MG ORAL TABLET 1 tab by m outh daily LISINOPRIL-HYDROCHLOROTHIAZIDE 98495691212 No Longer Active Mitch Urbina DO Active LISINOPRIL 20 MG ORAL TABLET 1 tab po at HS LIS INOPRIL 10004626805 No Longer Active Mitch Urbina DO Active COUMADIN 5 MG ORAL TABLET 1 by mouth every other day 2 WARFARIN SODIUM 93808378243 No Longer Active Mitch Urbina DO Active COUMADIN 6 MG ORAL TABLET 1 by mouth every other day 2 WARFARIN SODIUM 83219285163 No Longer Active Mitch Urbina DO Active SIMVASTATIN 40 MG ORAL TABLET 1 tab daily at bedtime SIMVASTATIN 02905209065 Active Maria Rivas RN Active SIMVASTATIN 20 MG ORAL TABLET 1 tab daily at bedtime 2 SIMVASTATIN 74728482963 No Longer Active Mitch Urbina DO Active LOVENOX 100 MG/ML SUBCUTANEOUS SOLUTION One injection twice a da y ENOXAPARIN SODIUM 57493716288 No Longer Active Carmine Yusuf MD Active JANUVIA 50 MG ORAL TABLET Take one by mouth daily SITAGLIPTIN PHOSPHATE 78793991426 Active Renee Oconnor LPN Active JANUVIA 100 MG ORAL TABLET 1/2 by mouth every day 2011 SITAGLIPTIN PHOSPHATE 02706109285 No Longer Active Bijal Segal RN Acti ve METFORMIN HCL 500 MG ORAL TABLET 2 by mouth twice daily METFORMIN HCL 26795085550 No Longer Active Renee Oconnor LPN Active COLCRYS 0.6 MG ORAL TABLET 1 po q 6 hours prn gout pain COLCHICINE 65955048262 No Longer Active Camila eRese Active LISINOPRIL 5 MG ORAL TABLET 1 by mouth every day 11/17 LISINOPRIL 23801014126 No Longer Active Nguyen Ana Active KLOR-CON 20 MEQ ORAL PACKET Take one by mouth daily 09/10/08 POTASSIUM CHLORIDE 29828927510 No Longer Active Nguyen Ana Active FUROSEMIDE 40 MG ORAL TABLET 1 by mouth daily F UROSEMIDE 87783773762 No Longer Active Nguyen Ana Active PROVIGIL 100 MG ORAL TABLET Take one by mouth daily 08/20/04 MODAFINIL 77640446794 No Longer Active Mitch Urbina DO Active BACTRIM DS 800-160 MG ORAL TABLET 1 tab by mouth twice daily 201 10/19/09 TRIMETHOPRIM-SULFAMETHOXAZOLE 25968797355 No Longer Active Elian Hays MD Active ADULT ASPIRIN LOW STRENGTH 81 MG ORAL TABLET DISINTEGR ATING 1 by mouth every daily ASPIRIN 59675681779 Active Mitch Urbina DO Ac tive METOPROLOL TARTRATE 50 MG ORAL TABLET 1 by mouth twice daily METOPROLOL TARTRATE 28047415561 Active Maria Rivas RN Ac tive BACTRIM DS 800-160 MG ORAL TABLET 1 tab by mouth twice daily 201 10/19/09 BACTRIM DS 800-160 MG ORAL TABLET 786529 TRIMETHOPRIM-SULFAMETHOXAZOLE Inactive PROVIGIL 100 MG ORAL TABLET Take one by mouth daily 08/20/04 PROVIGIL 100 MG ORAL TABLET 112067 MODAFINIL Inactive FUROSEMIDE 40 MG ORAL TABLET 1 by mouth daily FUROSEMIDE 40 MG ORAL TABLET 106030 FUROSEMIDE Inactive KLOR-CON 20 MEQ ORAL PACKET Take one by mouth daily 09/10/08 KLOR- CON 20 MEQ ORAL PACKET 4651321 POTASSIUM CHLORIDE Inactive LISINOPRIL 5 MG ORAL TABLET 1 by mouth every day 11/17 LISINOPRIL 5 MG ORAL TABLET 773620 LISINOPRIL Inactive COLCRYS 0.6 MG ORAL TABLET 1 po q 6 hours prn gout pain COLCRYS 0.6 MG ORAL TABLET 033818 COLCHICINE Inactive JANUVIA 100 MG ORAL TABLET 1/2 by mouth every day 2011 JANUVIA 100 MG ORAL TABLET SITAGLIPTIN PHOSPHATE Inactive SIMVASTATIN 20 MG ORAL TABLET 1 tab daily at bedtime 2 SIMVASTATIN 20 MG ORAL TABLET 400695 SIMVASTATIN Inactive COUMADIN 6 MG ORAL TABLET 1 by mouth every other day 2 COUMADIN 6 MG ORAL TABLET 885038 WARFARIN SODIUM Inactive COUMADIN 5 MG ORAL TABLET 1 by mouth every other day 2 COUMADIN 5 MG ORAL TABLET 934108 WARFARIN SODIUM Inactive LISINOPRIL 20 MG ORAL TABLET 1 tab po at HS LISINOPRIL 20 MG ORAL TABLET 889679 LISINOPRIL Inactive LISINOPRIL-HYDROCHLOROTHIAZIDE 20-12.5 MG ORAL TABLET 1 tab by m outh daily LISINOPRIL-HYDROCHLOROTHIAZIDE 20-12.5 MG ORAL TABLET 541536 LISINOPRIL-HYDROCHLOROTHIAZIDE Inactive POLYTRIM 37467-5.1 UNIT/ML-% OPHTHALMIC SOLUTION 1 rui p in affected eye every 3 hours while awake x 7 days POLYTRIM 1000 0-0.1 UNIT/ML-% OPHTHALMIC SOLUTION 072504 POLYMYXIN B-TRIMETHOPRIM Inactive COUMADIN 4 MG ORAL TABLET 1 tablet daily COUMADIN 4 MG ORAL TABLET 524857 WARFARIN SODIUM Inactive CLONIDINE HCL 0.1 MG ORAL TABLET 1 po bid 7 days, then 1/2 t ab po bid 7 days CLONIDINE HCL 0.1 MG ORAL TABLET 947242 CLONIDIN E HCL Inactive ALLOPURINOL 300 MG ORAL TABLET Take 1 tablet by mouth daily 2012 ALLOPURINOL 300 MG ORAL TABLET 834198 ALLOPURINOL I nactive MECLIZINE HCL 25 MG ORAL TABLET 1 po tid 3 days, then 1/2 ta b tid 3 days MECLIZINE HCL 25 MG ORAL TABLET 381190 MECLIZINE HCL Inactive AMLODIPINE BESYLATE 5 MG ORAL TABLET 1 tablet by mouth daily 201 01/20/04 AMLODIPINE BESYLATE 5 MG ORAL TABLET 290346 AMLODIPINE BESYLATE Inactive KEFLEX 500 MG ORAL CAPSULE 1 po qid K EFLEX 500 MG ORAL CAPSULE 741850 CEPHALEXIN Inactive COLCRYS 0.6 MG ORAL TABLET 1 tab qid prn gout COLCRYS 0.6 MG ORAL TABLET 919565 COLCHICINE Inactive FAMOTIDINE 20 MG ORAL TABLET by mouth twice a day 2017 FAMOTIDINE 20 MG ORAL TABLET 173609 FAMOTIDINE Inactive GLIMEPIRIDE 2 MG ORAL TABLET 1 po BID GLIMEPIRIDE 2 MG ORAL TABLET 455004 GLIMEPIRIDE Inactive LOVENOX 100 MG/ML SUBCUTANEOUS SOLUTION One injection twice a da y LOVENOX 100 MG/ML SUBCUTANEOUS SOLUTION 066713 ENOXAPAR IN SODIUM Inactive PREDNISONE 20 MG ORAL TABLET 2 tabs daily for 3 days 1 tab d aily for 3 days PREDNISONE 20 MG ORAL TABLET 988000 PREDNISONE Inactive Advance Directives Directive Description Start [...] mg/dL Encounters Code Encounter Date Provider Facility CPT-51667 Level 3 Est. Patient 15:18:36 CDT Becky anderson [facility] [place] CPT-74433 [id number] Vst-Est Level IV 10:06:35 CDT Stephy Ambrose [facility] CPT-14005 [id number] Vst-Est Level IV 10:52:00 HEAD PAPER TESTER Stephy Ambrose [facility] CPT-34417 Level 3 Est. Patient 18:25:53 CDT Mitch luis [facility] CPT-58023 Level 3 Est. Patient 19:43:34 CDT Mitch luis [facility] CPT-09819 Level 4 Est. Patient 09:30:18 CDT Mitch luis [facility] CPT-06109 Level 3 Est. Patient 15:10:14 CDT Joe kamara [facility] [place] CPT-85965 Level 3 Est. Patient 15:03:46 CDT Joe kamara [facility] [place] CPT-03653 Level 3 Est. Patient 14:21:06 CDT Mitch luis [facility] CPT-24132 Level 3 Est. Patient 14:52:06 CDT Joe kamara [facility] [place] CPT-25736 Level 3 Est. Patient 09:34:30 HEAD PAPER TESTER Mitch luis [facility] CPT-89776 Level 3 Est. Patient 09:37:15 CDT Mitch luis [facility] CPT-25279 Level 3 Est. Patient 17:01:00 HEAD PAPER TESTER Mitch luis [facility] CPT-86877 Level 3 Est. Patient 13:53:19 HEAD PAPER TESTER Mitch luis [facility] CPT-35099 Level 3 Est. Patient 19:19:37 HEAD PAPER TESTER Mitch luis [facility] CPT-97755 Level 3 Est. Patient 13:25:53 HEAD PAPER TESTER Tavo toure MD [facility] CPT-35780 Level 3 Est. Patient 18:17:28 CDT Mitch luis [facility] CPT-73419 Level 3 Est. Patient 15:22:57 CDT Mitch luis [facility] CPT-15087 Level 3 Est. Patient 18:21:50 CDT Mitch luis [facility] CPT-28070 Level 3 Est. Patient 18:20:38 CDT Mitch luis [facility] CPT-65695 Level 3 Est. Patient 15:37:55 CDT Mitch luis [facility] CPT-98992 Level 2 Est. Patient 15:54:44 CDT Carmine benton MD [facility]-79335 Level 3 Est. Patient 21:46:01 HEAD PAPER TESTER Mitch luis [facility] CPT-74156 Level 3 Est. Patient 22:15:50 CDT Mitch luis [facility] CPT-27913 Level 3 Est. Patient 10:48:15 CDT Mitch luis [facility] CPT-44303 Level 3 Est. Patient 23:20:57 CDT Tavo toure MD [facility] CPT-28749 Level 3 Est. Patient 16:26:13 CDT Mitch luis [facility] Procedures Code Procedure Name Date Entry Date Standard Desc ription CPT-65992 Venipuncture Draw Fee 18:00:48 CDT CPT-02228 Venipuncture Draw Fee 14:56:20 CDT CPT-JTINJ Asp/Joint Injection 18:47:02 CDT CPT-53774 Venipuncture Draw Fee 09:26:17 CDT CPT-77862 PT/INR - LAB USE ONLY 13:32:49 HEAD PAPER TESTER CPT-26339 Venipuncture Draw Fee 13:32:49 HEAD PAPER TESTER CPT-88712 PT/INR - LAB USE ONLY 10:34:49 HEAD PAPER TESTER CPT-96366 Venipuncture Draw Fee 10:34:48 HEAD PAPER TESTER CPT-21037 PT/INR - LAB USE ONLY 09:22:03 HEAD PAPER TESTER CPT-69880 Venipuncture Draw Fee 09:22:02 HEAD PAPER TESTER CPT-98570 Hemoccult IFOBT - LAB USE ONLY 10:27:22 CDT CPT-12243 Venipuncture Draw Fee 08:27:08 CDT CPT-02610 Liver Profile - LAB USE ONLY 08:27:07 CDT 2 CPT-33386 Microalbumin - LAB USE ONLY 08:27:07 CDT 20 25/05/09 CPT-98902 PT/INR - LAB USE ONLY 08:27:07 CDT CPT-66828 HGBA1C - LAB USE ONLY 08:27:07 CDT CPT-19848 CBC - LAB USE ONLY 08:27:07 CDT CPT-90822 Venipuncture Draw Fee 11:09:14 CDT CPT-92473 Venipuncture Draw Fee 08:32:21 HEAD PAPER TESTER CPT-42565 Venipuncture Draw Fee 09:38:56 HEAD PAPER TESTER CPT-12250 No Charge Offi Visit 21:36:07 CDT 1 CPT-75717 Venipuncture Draw Fee 10:13:28 HEAD PAPER TESTER CPT-33110 Venipuncture Draw Fee 08:31:11 CDT CPT-91532 Aspir/Inject Med Joint 18:17:28 CDT CPT-43471 Venipuncture Draw Fee 10:13:30 CDT CPT-77163 Venipuncture Draw Fee 08:31:43 HEAD PAPER TESTER CPT-JTINJ Joint Injection 18:34:50 CDT CPT-89281 Knee 3V 12:25:09 CDT CPT-14968 Venipuncture Draw Fee 12:15:57 CDT CPT-060 Medical Surveillance Exam 21:31:43 CDT 2011 CPT-07928 Venipuncture Draw Fee 08:32:05 HEAD PAPER TESTER CPT-OV Office Visit 18:19:06 CDT
--- OUTSIDE RECORDS SUMMARY | 2020-01-18 12:13 | XMS REPORT | Clinical Summary ---
Author Author Admin, Mitch Leon Organization [facility] [employer] Address Unknown Phone Unavailable Allergies, Adverse Reactions, [...] Coronary atherosclerosis of unspecified type of vessel, [place] or graft EDEMA 782.3 Resolved Mitch Urbina [...] for 1 week, then once daily FLUTICASONE IN OPIONATE 56317899366 Active Becky Sell [employer] Active PREDNISONE 20 MG ORAL TABLET 2 tabs daily for 3 days 1 tab d aily for 3 days PREDNISONE 95454875142 No Longer Active Becky Sell [employer] EXEC[employer]IVE Active MINOXIDIL 2.5 MG ORAL TABLET 1 tablet twice daily for high b lood pressure MINOXIDIL 72925929872 Active Mitch Urbina DO Ac tive METFORMIN HCL ER 500 MG ORAL TABLET EXTENDED RELEASE 2 4 HOUR 2 tablets by mouth twice daily METFORMIN HCL 93782016042 Active Mitch Urbina DO Active GLIMEPIRIDE 4 MG ORAL TABLET 1 tablet by mouth twice daily f or diabetes GLIMEPIRIDE 99432592515 Active Mitch Urbina DO Active GLIMEPIRIDE 2 MG ORAL TABLET 1 po BID GLIMEPI RIDE 32071711491 No Longer Active Mitch Urbina DO Active AMLODIPINE BESYLATE 5 MG ORAL TABLET 1 tablet by mouth daily AMLODIPINE BESYLATE 82188861395 Active Mitch Urbina DO Active PROVIGIL 200 MG ORAL TABLET 1/2 tab po q day MODA FINIL 37636851839 Active Renee Oconnor LPN Active FAMOTIDINE 20 MG ORAL TABLET by mouth twice a day 2017 FAMOTIDINE 23035979537 No Longer Active Mitch Urbina DO Active COLCRYS 0.6 MG ORAL TABLET 1 tab qid prn gout C OLCHICINE 83377426232 No Longer Active Mitch Urbina DO Active KEFLEX 500 MG ORAL CAPSULE 1 po qid CEPHALEXI N 68442058395 No Longer Active Mitch Urbina DO Active LOSARTAN POTASSIUM 100 MG ORAL TABLET 1 pill by mouth daily, for blood pressure LOSARTAN POTASSIUM 60284359476 Active Mitch Arnol Carlitos VELASQUEZ Active AMLODIPINE BESYLATE 5 MG ORAL TABLET 1 tablet by mouth daily 201 01/20/04 AMLODIPINE BESYLATE 82892118658 No Longer Active Joe fulton APRN Active MITIGARE 0.6 MG ORAL CAPSULE 2 capsules at onset of go ut pain, then take one capsule at 1 hour if symptoms persist. COLCHICINE 59 395261864 Active Mitch Urbina DO Active COUMADIN 1 MG ORAL TABLET 2 tabs orally daily with the 5mg tab to equal 7mg daily WARFARIN SODIUM 55501883489 Active Renee Oconnor LPN Active INVOKANA 100 MG ORAL TABLET 1 tablet orally daily CANAGLIFLOZIN 60146783164 Active Mitch Urbina DO Active MECLIZINE HCL 25 MG ORAL TABLET 1 po tid 3 days, then 1/2 ta b tid 3 days MECLIZINE HCL 18903574736 No Longer Active Corey SEGURA Active ALLOPURINOL 300 MG ORAL TABLET Take 1 tablet by mouth daily 2012 ALLOPURINOL 62392841018 No Longer Active Corey SEGURA Active CLONIDINE HCL 0.1 MG ORAL TABLET 1 po bid 7 days, then 1/2 t ab po bid 7 days CLONIDINE HCL 49512082924 No Longer Active Corey SEGURA Active COUMADIN 5 MG ORAL TABLET 1 tab PO daily WARFAR IN SODIUM 25197057644 Active Renee Oconnor LPN Active COUMADIN 4 MG ORAL TABLET 1 tablet daily WARFAR IN SODIUM 30598089552 No Longer Active Corey SEGURA Active POLYTRIM 23595-3.1 UNIT/ML-% OPHTHALMIC SOLUTION 1 rui p in affected eye every 3 hours while awake x 7 days POLYMYXIN B-TRIMETHOP RIM 47706332449 No Longer Active Corey SEGURA Active LOSARTAN POTASSIUM-HCTZ 100-12.5 MG ORAL TABLET 1 by m outh daily for high blood pressure LOSARTAN POTASSIUM-HCTZ 46517480577 No Longer A ctive Mitch Urbina DO Active LISINOPRIL-HYDROCHLOROTHIAZIDE 20-12.5 MG ORAL TABLET 1 tab by m outh daily LISINOPRIL-HYDROCHLOROTHIAZIDE 01347876657 No Longer Active Mitch Urbina DO Active LISINOPRIL 20 MG ORAL TABLET 1 tab po at HS LIS INOPRIL 84011915871 No Longer Active Mitch Urbina DO Active COUMADIN 5 MG ORAL TABLET 1 by mouth every other day 2 WARFARIN SODIUM 83238955441 No Longer Active Mitch Urbina DO Active COUMADIN 6 MG ORAL TABLET 1 by mouth every other day 2 WARFARIN SODIUM 75245038027 No Longer Active Mitch Urbina DO Active SIMVASTATIN 40 MG ORAL TABLET 1 tab daily at bedtime SIMVASTATIN 41968432463 Active Maria Rivas RN Active SIMVASTATIN 20 MG ORAL TABLET 1 tab daily at bedtime 2 SIMVASTATIN 91257401797 No Longer Active Mitch Urbina DO Active LOVENOX 100 MG/ML SUBCUTANEOUS SOLUTION One injection twice a da y ENOXAPARIN SODIUM 31911751562 No Longer Active Carmine Yusuf MD Active JANUVIA 50 MG ORAL TABLET Take one by mouth daily SITAGLIPTIN PHOSPHATE 43698477181 Active Renee Oconnor LPN Active JANUVIA 100 MG ORAL TABLET 1/2 by mouth every day 2011 SITAGLIPTIN PHOSPHATE 25750875832 No Longer Active Bijal Segal RN Acti ve METFORMIN HCL 500 MG ORAL TABLET 2 by mouth twice daily METFORMIN HCL 23717310661 No Longer Active Renee Oconnor LPN Active COLCRYS 0.6 MG ORAL TABLET 1 po q 6 hours prn gout pain COLCHICINE 16747560361 No Longer Active Camila Reese Active LISINOPRIL 5 MG ORAL TABLET 1 by mouth every day 11/17 LISINOPRIL 99518312575 No Longer Active Nguyen Ana Active KLOR-CON 20 MEQ ORAL PACKET Take one by mouth daily 09/10/08 POTASSIUM CHLORIDE 73452954623 No Longer Active Nguyen Ana Active FUROSEMIDE 40 MG ORAL TABLET 1 by mouth daily F UROSEMIDE 23680732760 No Longer Active Nguyen Ana Active PROVIGIL 100 MG ORAL TABLET Take one by mouth daily 08/20/04 MODAFINIL 89003746931 No Longer Active Mitch Urbina DO Active BACTRIM DS 800-160 MG ORAL TABLET 1 tab by mouth twice daily 201 10/19/09 TRIMETHOPRIM-SULFAMETHOXAZOLE 66787700551 No Longer Active Elian Hays MD Active ADULT ASPIRIN LOW STRENGTH 81 MG ORAL TABLET DISINTEGR ATING 1 by mouth every daily ASPIRIN 32187570136 Active Mitch Urbina DO Ac tive METOPROLOL TARTRATE 50 MG ORAL TABLET 1 by mouth twice daily METOPROLOL TARTRATE 25468506509 Active Maria Rivas RN Ac tive BACTRIM DS 800-160 MG ORAL TABLET 1 tab by mouth twice daily 201 10/19/09 BACTRIM DS 800-160 MG ORAL TABLET 986588 TRIMETHOPRIM-SULFAMETHOXAZOLE Inactive PROVIGIL 100 MG ORAL TABLET Take one by mouth daily 08/20/04 PROVIGIL 100 MG ORAL TABLET 623424 MODAFINIL Inactive FUROSEMIDE 40 MG ORAL TABLET 1 by mouth daily FUROSEMIDE 40 MG ORAL TABLET 534376 FUROSEMIDE Inactive KLOR-CON 20 MEQ ORAL PACKET Take one by mouth daily 09/10/08 KLOR- CON 20 MEQ ORAL PACKET 8035381 POTASSIUM CHLORIDE Inactive LISINOPRIL 5 MG ORAL TABLET 1 by mouth every day 11/17 LISINOPRIL 5 MG ORAL TABLET 629817 LISINOPRIL Inactive COLCRYS 0.6 MG ORAL TABLET 1 po q 6 hours prn gout pain COLCRYS 0.6 MG ORAL TABLET 874418 COLCHICINE Inactive JANUVIA 100 MG ORAL TABLET 1/2 by mouth every day 2011 JANUVIA 100 MG ORAL TABLET SITAGLIPTIN PHOSPHATE Inactive SIMVASTATIN 20 MG ORAL TABLET 1 tab daily at bedtime 2 SIMVASTATIN 20 MG ORAL TABLET 217916 SIMVASTATIN Inactive COUMADIN 6 MG ORAL TABLET 1 by mouth every other day 2 COUMADIN 6 MG ORAL TABLET 894585 WARFARIN SODIUM Inactive COUMADIN 5 MG ORAL TABLET 1 by mouth every other day 2 COUMADIN 5 MG ORAL TABLET 668103 WARFARIN SODIUM Inactive LISINOPRIL 20 MG ORAL TABLET 1 tab po at HS LISINOPRIL 20 MG ORAL TABLET 910292 LISINOPRIL Inactive LISINOPRIL-HYDROCHLOROTHIAZIDE 20-12.5 MG ORAL TABLET 1 tab by m outh daily LISINOPRIL-HYDROCHLOROTHIAZIDE 20-12.5 MG ORAL TABLET 178339 LISINOPRIL-HYDROCHLOROTHIAZIDE Inactive POLYTRIM 00543-1.1 UNIT/ML-% OPHTHALMIC SOLUTION 1 rui p in affected eye every 3 hours while awake x 7 days POLYTRIM 1000 0-0.1 UNIT/ML-% OPHTHALMIC SOLUTION 893975 POLYMYXIN B-TRIMETHOPRIM Inactive COUMADIN 4 MG ORAL TABLET 1 tablet daily COUMADIN 4 MG ORAL TABLET 243112 WARFARIN SODIUM Inactive CLONIDINE HCL 0.1 MG ORAL TABLET 1 po bid 7 days, then 1/2 t ab po bid 7 days CLONIDINE HCL 0.1 MG ORAL TABLET 910363 CLONIDIN E HCL Inactive ALLOPURINOL 300 MG ORAL TABLET Take 1 tablet by mouth daily 2012 ALLOPURINOL 300 MG ORAL TABLET 396827 ALLOPURINOL I nactive MECLIZINE HCL 25 MG ORAL TABLET 1 po tid 3 days, then 1/2 ta b tid 3 days MECLIZINE HCL 25 MG ORAL TABLET 294198 MECLIZINE HCL Inactive AMLODIPINE BESYLATE 5 MG ORAL TABLET 1 tablet by mouth daily 201 01/20/04 AMLODIPINE BESYLATE 5 MG ORAL TABLET 007342 AMLODIPINE BESYLATE Inactive KEFLEX 500 MG ORAL CAPSULE 1 po qid K EFLEX 500 MG ORAL CAPSULE 528928 CEPHALEXIN Inactive COLCRYS 0.6 MG ORAL TABLET 1 tab qid prn gout COLCRYS 0.6 MG ORAL TABLET 151939 COLCHICINE Inactive FAMOTIDINE 20 MG ORAL TABLET by mouth twice a day 2017 FAMOTIDINE 20 MG ORAL TABLET 929623 FAMOTIDINE Inactive GLIMEPIRIDE 2 MG ORAL TABLET 1 po BID GLIMEPIRIDE 2 MG ORAL TABLET 717070 GLIMEPIRIDE Inactive LOVENOX 100 MG/ML SUBCUTANEOUS SOLUTION One injection twice a da y LOVENOX 100 MG/ML SUBCUTANEOUS SOLUTION 980595 ENOXAPAR IN SODIUM Inactive PREDNISONE 20 MG ORAL TABLET 2 tabs daily for 3 days 1 tab d aily for 3 days PREDNISONE 20 MG ORAL TABLET 420302 PREDNISONE Inactive Advance Directives Directive Description Start [...] mg/dL Encounters Code Encounter Date Provider Facility CPT-70931 Level 3 Est. Patient 15:18:36 CDT Becky anderson [facility] CPT-74829 [id number] Vst-Est Level IV 10:06:[address] [facility] CPT-26338 [id number] Vst-Est Level IV 10:52:00 EMERGENCY ROOM TECHNICIAN Stephy [facility] CPT-97125 Level 3 Est. Patient 18:25:53 CDT Mitch luis [facility] CPT-44098 Level 3 Est. Patient 19:43:34 CDT Mitch luis [facility] CPT-28037 Level 4 Est. Patient 09:30:18 CDT Mitch luis [facility] CPT-59996 Level 3 Est. Patient 15:10:14 CDT Joe kaamra [facility] CPT-63949 Level 3 Est. Patient 15:03:46 CDT Joe kamara [facility] CPT-90242 Level 3 Est. Patient 14:21:06 CDT Mitch luis [facility] CPT-24938 Level 3 Est. Patient 14:52:06 CDT Joe kamara [facility] CPT-78643 Level 3 Est. Patient 09:34:30 EMERGENCY ROOM TECHNICIAN Mitch luis [facility] CPT-13837 Level 3 Est. Patient 09:37:15 CDT Mitch luis [facility] CPT-26258 Level 3 Est. Patient 17:01:00 EMERGENCY ROOM TECHNICIAN Mitch luis [facility] CPT-95431 Level 3 Est. Patient 13:53:19 EMERGENCY ROOM TECHNICIAN Mitch luis [facility] CPT-66677 Level 3 Est. Patient 19:19:37 EMERGENCY ROOM TECHNICIAN Mitch luis [facility] CPT-23148 Level 3 Est. Patient 13:25:53 EMERGENCY ROOM TECHNICIAN Tavo toure MD [facility] CPT-06594 Level 3 Est. Patient 18:17:28 CDT Mitch luis [facility] CPT-84938 Level 3 Est. Patient 15:22:57 CDT Mitch luis [facility] CPT-79331 Level 3 Est. Patient 18:21:50 CDT Mitch luis [facility] CPT-41456 Level 3 Est. Patient 18:20:38 CDT Mitch luis [facility] CPT-45673 Level 3 Est. Patient 15:37:55 CDT Mitch luis [facility] CPT-78555 Level 2 Est. Patient 15:54:44 CDT Carmine benton MD [facility]-15371 Level 3 Est. Patient 21:46:01 EMERGENCY ROOM TECHNICIAN Mitch luis [facility] CPT-72337 Level 3 Est. Patient 22:15:50 CDT Mitch luis [facility] CPT-47851 Level 3 Est. Patient 10:48:15 CDT Mitch luis [facility] CPT-44975 Level 3 Est. Patient 23:20:57 CDT Tavo toure MD [facility] CPT-43485 Level 3 Est. Patient 16:26:13 CDT Mitch luis [facility] Procedures Code Procedure Name Date Entry Date Standard Desc ription CPT-69562 Venipuncture Draw Fee 14:56:20 CDT CPT-JTINJ Asp/Joint Injection 18:47:02 CDT CPT-68482 Venipuncture Draw Fee 09:26:17 CDT CPT-48134 PT/INR - LAB USE ONLY 13:32:49 EMERGENCY ROOM TECHNICIAN CPT-70601 Venipuncture Draw Fee 13:32:49 EMERGENCY ROOM TECHNICIAN CPT-02657 PT/INR - LAB USE ONLY 10:34:49 EMERGENCY ROOM TECHNICIAN CPT-67608 Venipuncture Draw Fee 10:34:48 EMERGENCY ROOM TECHNICIAN CPT-98241 PT/INR - LAB USE ONLY 09:22:03 EMERGENCY ROOM TECHNICIAN CPT-16693 Venipuncture Draw Fee 09:22:02 EMERGENCY ROOM TECHNICIAN CPT-30114 Hemoccult IFOBT - LAB USE ONLY 10:27:22 CDT CPT-37274 Venipuncture Draw Fee 08:27:08 CDT CPT-80291 Liver Profile - LAB USE ONLY 08:27:07 CDT 2 CPT-11439 Microalbumin - LAB USE ONLY 08:27:07 CDT 20 25/05/09 CPT-22701 PT/INR - LAB USE ONLY 08:27:07 CDT CPT-77849 HGBA1C - LAB USE ONLY 08:27:07 CDT CPT-77298 CBC - LAB USE ONLY 08:27:07 CDT CPT-24001 Venipuncture Draw Fee 11:09:14 CDT CPT-16728 Venipuncture Draw Fee 08:32:21 EMERGENCY ROOM TECHNICIAN CPT-05533 Venipuncture Draw Fee 09:38:56 EMERGENCY ROOM TECHNICIAN CPT-20941 No Charge Offi Visit 21:36:07 CDT 1 CPT-63917 Venipuncture Draw Fee 10:13:28 EMERGENCY ROOM TECHNICIAN CPT-50042 Venipuncture Draw Fee 08:31:11 CDT CPT-91272 Aspir/Inject Med Joint 18:17:28 CDT CPT-46887 Venipuncture Draw Fee 10:13:30 CDT CPT-38723 Venipuncture Draw Fee 08:31:43 EMERGENCY ROOM TECHNICIAN CPT-JTINJ Joint Injection 18:34:50 CDT CPT-19237 Knee 3V 12:25:09 CDT CPT-09232 Venipuncture Draw Fee 12:15:57 CDT CPT-060 Medical Surveillance Exam 21:31:43 CDT 2011 CPT-70469 Venipuncture Draw Fee 08:32:05 EMERGENCY ROOM TECHNICIAN CPT-OV Office Visit 18:19:06 CDT
--- OUTSIDE RECORDS SUMMARY | 2020-01-18 12:13 | XMS REPORT | Clinical Summary ---
Author Author Admin, Mitch Leon Organization [facility] [employer] Address Unknown Phone Unavailable Allergies, Adverse Reactions, [...] Coronary atherosclerosis of unspecified type of vessel, [place] or graft EDEMA 782.3 Resolved Mitch Urbina [...] Inactive Mitch Urbina DO Cellulitis ICD-682.9 Inactive Micth Urbina DO 10/23 Medication List Medication Instructions Start Date Stop Date Generic Name NDC Status Provider Patient Instruction FLUTICASONE PROPIONATE 50 MCG/ACT NASAL SUSPENSION 1 s pray each nostril twice daily for 1 week, then once daily FLUTICASONE UT OPIONATE 12651893677 Active Becky Sell 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 CLERK 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 PREDNISONE 20 MG ORAL TABLET 2 tabs daily for 3 days 1 tab d aily for 3 days PREDNISONE 75123238652 No Longer Active Becky Sell 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 COMPILING CLERK Active MINOXIDIL 2.5 MG ORAL TABLET 1 tablet twice daily for high b lood pressure MINOXIDIL 91000190964 Active Mitch Urbina DO Ac tive METFORMIN HCL ER 500 MG ORAL TABLET EXTENDED RELEASE 2 4 HOUR 2 tablets by mouth twice daily METFORMIN HCL 11997173961 Active Mitch Urbina DO Active GLIMEPIRIDE 4 MG ORAL TABLET 1 tablet by mouth twice daily f or diabetes GLIMEPIRIDE 29595805977 Active Mitch Urbina DO Active GLIMEPIRIDE 2 MG ORAL TABLET 1 po BID GLIMEPI RIDE 32054828351 No Longer Active Mitch Urbina DO Active AMLODIPINE BESYLATE 5 MG ORAL TABLET 1 tablet by mouth daily AMLODIPINE BESYLATE 30001277208 Active Mitch Urbina DO Active PROVIGIL 200 MG ORAL TABLET 1/2 tab po q day MODA FINIL 17219409489 Active Renee Oconnor LPN Active FAMOTIDINE 20 MG ORAL TABLET by mouth twice a day 2017 FAMOTIDINE 88312181400 No Longer Active Mitch Urbina DO Active COLCRYS 0.6 MG ORAL TABLET 1 tab qid prn gout C OLCHICINE 68725882075 No Longer Active Mitch Urbina DO Active KEFLEX 500 MG ORAL CAPSULE 1 po qid CEPHALEXI N 83014337011 No Longer Active Mitch Urbina DO Active LOSARTAN POTASSIUM 100 MG ORAL TABLET 1 pill by mouth daily, for blood pressure LOSARTAN POTASSIUM 59645869249 Active Mitch Arnol Carlitos VELASQUEZ Active AMLODIPINE BESYLATE 5 MG ORAL TABLET 1 tablet by mouth daily 201 01/20/04 AMLODIPINE BESYLATE 78565180791 No Longer Active Joe fulton APRN Active MITIGARE 0.6 MG ORAL CAPSULE 2 capsules at onset of go ut pain, then take one capsule at 1 hour if symptoms persist. COLCHICINE 59 024173766 Active Mitch Urbina DO Active COUMADIN 1 MG ORAL TABLET 2 tabs orally daily with the 5mg tab to equal 7mg daily WARFARIN SODIUM 08145568952 Active Renee Oconnor LPN Active INVOKANA 100 MG ORAL TABLET 1 tablet orally daily CANAGLIFLOZIN 06599930573 Active Mitch Urbina DO Active MECLIZINE HCL 25 MG ORAL TABLET 1 po tid 3 days, then 1/2 ta b tid 3 days MECLIZINE HCL 59587845776 No Longer Active Corey SEGURA Active ALLOPURINOL 300 MG ORAL TABLET Take 1 tablet by mouth daily 2012 ALLOPURINOL 84862546335 No Longer Active Corey SEGURA Active CLONIDINE HCL 0.1 MG ORAL TABLET 1 po bid 7 days, then 1/2 t ab po bid 7 days CLONIDINE HCL 85634161506 No Longer Active Corey SEGURA Active COUMADIN 5 MG ORAL TABLET 1 tab PO daily WARFAR IN SODIUM 22570041875 Active Renee Oconnor LPN Active COUMADIN 4 MG ORAL TABLET 1 tablet daily WARFAR IN SODIUM 48344252954 No Longer Active Corey SEGURA Active POLYTRIM 29987-8.1 UNIT/ML-% OPHTHALMIC SOLUTION 1 rui p in affected eye every 3 hours while awake x 7 days POLYMYXIN B-TRIMETHOP RIM 52517294586 No Longer Active Corey SEGURA Active LOSARTAN POTASSIUM-HCTZ 100-12.5 MG ORAL TABLET 1 by m outh daily for high blood pressure LOSARTAN POTASSIUM-HCTZ 92732255324 No Longer A ctive Mitch Urbina DO Active LISINOPRIL-HYDROCHLOROTHIAZIDE 20-12.5 MG ORAL TABLET 1 tab by m outh daily LISINOPRIL-HYDROCHLOROTHIAZIDE 33982385169 No Longer Active Mitch Urbina DO Active LISINOPRIL 20 MG ORAL TABLET 1 tab po at HS LIS INOPRIL 08743694626 No Longer Active Mitch Urbina DO Active COUMADIN 5 MG ORAL TABLET 1 by mouth every other day 2 WARFARIN SODIUM 71000829252 No Longer Active Mitch Urbina DO Active COUMADIN 6 MG ORAL TABLET 1 by mouth every other day 2 WARFARIN SODIUM 58102494118 No Longer Active Mitch Urbina DO Active SIMVASTATIN 40 MG ORAL TABLET 1 tab daily at bedtime SIMVASTATIN 98344512592 Active Maria Rivas RN Active SIMVASTATIN 20 MG ORAL TABLET 1 tab daily at bedtime 2 SIMVASTATIN 55147550565 No Longer Active Mitch Urbina DO Active LOVENOX 100 MG/ML SUBCUTANEOUS SOLUTION One injection twice a da y ENOXAPARIN SODIUM 95523042522 No Longer Active Carmine Yusuf MD Active JANUVIA 50 MG ORAL TABLET Take one by mouth daily SITAGLIPTIN PHOSPHATE 58006336849 Active Renee Oconnor LPN Active JANUVIA 100 MG ORAL TABLET 1/2 by mouth every day 2011 SITAGLIPTIN PHOSPHATE 97210880757 No Longer Active Bijal Segal RN Acti ve METFORMIN HCL 500 MG ORAL TABLET 2 by mouth twice daily METFORMIN HCL 01998793846 No Longer Active Renee Oconnor LPN Active COLCRYS 0.6 MG ORAL TABLET 1 po q 6 hours prn gout pain COLCHICINE 69090539589 No Longer Active Camila Reese Active LISINOPRIL 5 MG ORAL TABLET 1 by mouth every day 11/17 LISINOPRIL 56331691405 No Longer Active Nguyen Ana Active KLOR-CON 20 MEQ ORAL PACKET Take one by mouth daily 09/10/08 POTASSIUM CHLORIDE 86881552269 No Longer Active Nguyen Ana Active FUROSEMIDE 40 MG ORAL TABLET 1 by mouth daily F UROSEMIDE 46509531393 No Longer Active Nguyen Ana Active PROVIGIL 100 MG ORAL TABLET Take one by mouth daily 08/20/04 MODAFINIL 13330918543 No Longer Active Mitch Urbina DO Active BACTRIM DS 800-160 MG ORAL TABLET 1 tab by mouth twice daily 201 10/19/09 TRIMETHOPRIM-SULFAMETHOXAZOLE 07164943654 No Longer Active Elian Hays MD Active ADULT ASPIRIN LOW STRENGTH 81 MG ORAL TABLET DISINTEGR ATING 1 by mouth every daily ASPIRIN 37215623674 Active Mitch Urbina DO Ac tive METOPROLOL TARTRATE 50 MG ORAL TABLET 1 by mouth twice daily METOPROLOL TARTRATE 55277876350 Active Maria Rivas RN Ac tive BACTRIM DS 800-160 MG ORAL TABLET 1 tab by mouth twice daily 201 10/19/09 BACTRIM DS 800-160 MG ORAL TABLET 914677 TRIMETHOPRIM-SULFAMETHOXAZOLE Inactive PROVIGIL 100 MG ORAL TABLET Take one by mouth daily 08/20/04 PROVIGIL 100 MG ORAL TABLET 526599 MODAFINIL Inactive FUROSEMIDE 40 MG ORAL TABLET 1 by mouth daily FUROSEMIDE 40 MG ORAL TABLET 896736 FUROSEMIDE Inactive KLOR-CON 20 MEQ ORAL PACKET Take one by mouth daily 09/10/08 KLOR- CON 20 MEQ ORAL PACKET 0597982 POTASSIUM CHLORIDE Inactive LISINOPRIL 5 MG ORAL TABLET 1 by mouth every day 11/17 LISINOPRIL 5 MG ORAL TABLET 256834 LISINOPRIL Inactive COLCRYS 0.6 MG ORAL TABLET 1 po q 6 hours prn gout pain COLCRYS 0.6 MG ORAL TABLET 378669 COLCHICINE Inactive JANUVIA 100 MG ORAL TABLET 1/2 by mouth every day 2011 JANUVIA 100 MG ORAL TABLET SITAGLIPTIN PHOSPHATE Inactive SIMVASTATIN 20 MG ORAL TABLET 1 tab daily at bedtime 2 SIMVASTATIN 20 MG ORAL TABLET 249943 SIMVASTATIN Inactive COUMADIN 6 MG ORAL TABLET 1 by mouth every other day 2 COUMADIN 6 MG ORAL TABLET 112709 WARFARIN SODIUM Inactive COUMADIN 5 MG ORAL TABLET 1 by mouth every other day 2 COUMADIN 5 MG ORAL TABLET 632641 WARFARIN SODIUM Inactive LISINOPRIL 20 MG ORAL TABLET 1 tab po at HS LISINOPRIL 20 MG ORAL TABLET 343026 LISINOPRIL Inactive LISINOPRIL-HYDROCHLOROTHIAZIDE 20-12.5 MG ORAL TABLET 1 tab by m outh daily LISINOPRIL-HYDROCHLOROTHIAZIDE 20-12.5 MG ORAL TABLET 202787 LISINOPRIL-HYDROCHLOROTHIAZIDE Inactive POLYTRIM 46104-4.1 UNIT/ML-% OPHTHALMIC SOLUTION 1 rui p in affected eye every 3 hours while awake x 7 days POLYTRIM 1000 0-0.1 UNIT/ML-% OPHTHALMIC SOLUTION 933889 POLYMYXIN B-TRIMETHOPRIM Inactive COUMADIN 4 MG ORAL TABLET 1 tablet daily COUMADIN 4 MG ORAL TABLET 221251 WARFARIN SODIUM Inactive CLONIDINE HCL 0.1 MG ORAL TABLET 1 po bid 7 days, then 1/2 t ab po bid 7 days CLONIDINE HCL 0.1 MG ORAL TABLET 160244 CLONIDIN E HCL Inactive ALLOPURINOL 300 MG ORAL TABLET Take 1 tablet by mouth daily 2012 ALLOPURINOL 300 MG ORAL TABLET 708187 ALLOPURINOL I nactive MECLIZINE HCL 25 MG ORAL TABLET 1 po tid 3 days, then 1/2 ta b tid 3 days MECLIZINE HCL 25 MG ORAL TABLET 093564 MECLIZINE HCL Inactive AMLODIPINE BESYLATE 5 MG ORAL TABLET 1 tablet by mouth daily 201 01/20/04 AMLODIPINE BESYLATE 5 MG ORAL TABLET 586999 AMLODIPINE BESYLATE Inactive KEFLEX 500 MG ORAL CAPSULE 1 po qid K EFLEX 500 MG ORAL CAPSULE 160323 CEPHALEXIN Inactive COLCRYS 0.6 MG ORAL TABLET 1 tab qid prn gout COLCRYS 0.6 MG ORAL TABLET 828617 COLCHICINE Inactive FAMOTIDINE 20 MG ORAL TABLET by mouth twice a day 2017 FAMOTIDINE 20 MG ORAL TABLET 957168 FAMOTIDINE Inactive GLIMEPIRIDE 2 MG ORAL TABLET 1 po BID GLIMEPIRIDE 2 MG ORAL TABLET 572591 GLIMEPIRIDE Inactive LOVENOX 100 MG/ML SUBCUTANEOUS SOLUTION One injection twice a da y LOVENOX 100 MG/ML SUBCUTANEOUS SOLUTION 188264 ENOXAPAR IN SODIUM Inactive PREDNISONE 20 MG ORAL TABLET 2 tabs daily for 3 days 1 tab d aily for 3 days PREDNISONE 20 MG ORAL TABLET 723683 PREDNISONE Inactive Advance Directives Directive Description Start [...] mg/dL Encounters Code Encounter Date Provider Facility CPT-67750 Level 3 Est. Patient 15:18:36 CDT Becky anderson [facility] CPT-65752 [id number] Vst-Est Level IV 10:06:35 CDT Stephy Ambrose [facility] CPT-51176 [id number] Vst-Est Level IV 10:52:00 SENIOR CONTROLS ENGINEER Stephy Ambrose [facility] CPT-39383 Level 3 Est. Patient 18:25:53 CDT Mitch luis [facility] CPT-78389 Level 3 Est. Patient 19:43:34 CDT Mitch luis [facility] CPT-30015 Level 4 Est. Patient 09:30:18 CDT Mitch luis [facility] CPT-99273 Level 3 Est. Patient 15:10:14 CDT Joe kamara [facility] CPT-67926 Level 3 Est. Patient 15:03:46 CDT Joe kamara [facility] CPT-40036 Level 3 Est. Patient 14:21:06 CDT Mitch luis [facility] CPT-99058 Level 3 Est. Patient 14:52:06 CDT Joe kamara [facility] CPT-15650 Level 3 Est. Patient 09:34:30 SENIOR CONTROLS ENGINEER Mitch luis [facility] CPT-27998 Level 3 Est. Patient 09:37:15 CDT Mitch luis [facility] CPT-76754 Level 3 Est. Patient 17:01:00 SENIOR CONTROLS ENGINEER Mitch luis [facility] CPT-85734 Level 3 Est. Patient 13:53:19 SENIOR CONTROLS ENGINEER Mitch luis [facility] CPT-65026 Level 3 Est. Patient 19:19:37 SENIOR CONTROLS ENGINEER Mitch luis [facility] CPT-90623 Level 3 Est. Patient 13:25:53 SENIOR CONTROLS ENGINEER Tavo toure MD [facility] CPT-12375 Level 3 Est. Patient 18:17:28 CDT Mitch luis [facility] CPT-57213 Level 3 Est. Patient 15:22:57 CDT Mitch luis [facility] CPT-25591 Level 3 Est. Patient 18:21:50 CDT Mitch luis [facility] CPT-01318 Level 3 Est. Patient 18:20:38 CDT Mitch luis [facility] CPT-53840 Level 3 Est. Patient 15:37:55 CDT Mitch luis [facility] CPT-07327 Level 2 Est. Patient 15:54:44 CDT Carmine benton MD [facility]-08621 Level 3 Est. Patient 21:46:01 SENIOR CONTROLS ENGINEER Mitch luis [facility] CPT-30771 Level 3 Est. Patient 22:15:50 CDT Mitch luis [facility] CPT-39760 Level 3 Est. Patient 10:48:15 CDT Mitch luis [facility] CPT-87177 Level 3 Est. Patient 23:20:57 CDT Tavo toure MD [facility] CPT-88946 Level 3 Est. Patient 16:26:13 CDT Mitch luis [facility] Procedures Code Procedure Name Date Entry Date Standard Desc ription CPT-49331 Venipuncture Draw Fee 14:56:20 CDT CPT-JTINJ Asp/Joint Injection 18:47:02 CDT CPT-25819 Venipuncture Draw Fee 09:26:17 CDT CPT-37986 PT/INR - LAB USE ONLY 13:32:49 SENIOR CONTROLS ENGINEER CPT-33966 Venipuncture Draw Fee 13:32:49 SENIOR CONTROLS ENGINEER CPT-12267 PT/INR - LAB USE ONLY 10:34:49 SENIOR CONTROLS ENGINEER CPT-89120 Venipuncture Draw Fee 10:34:48 SENIOR CONTROLS ENGINEER CPT-80286 PT/INR - LAB USE ONLY 09:22:03 SENIOR CONTROLS ENGINEER CPT-68217 Venipuncture Draw Fee 09:22:02 SENIOR CONTROLS ENGINEER CPT-17107 Hemoccult IFOBT - LAB USE ONLY 10:27:22 CDT CPT-41627 Venipuncture Draw Fee 08:27:08 CDT CPT-77739 Liver Profile - LAB USE ONLY 08:27:07 CDT 2 CPT-96117 Microalbumin - LAB USE ONLY 08:27:07 CDT 20 25/05/09 CPT-11271 PT/INR - LAB USE ONLY 08:27:07 CDT CPT-12660 HGBA1C - LAB USE ONLY 08:27:07 CDT CPT-23686 CBC - LAB USE ONLY 08:27:07 CDT CPT-67313 Venipuncture Draw Fee 11:09:14 CDT CPT-95944 Venipuncture Draw Fee 08:32:21 SENIOR CONTROLS ENGINEER CPT-77205 Venipuncture Draw Fee 09:38:56 SENIOR CONTROLS ENGINEER CPT-27125 No Charge Offi Visit 21:36:07 CDT 1 CPT-05434 Venipuncture Draw Fee 10:13:28 SENIOR CONTROLS ENGINEER CPT-88398 Venipuncture Draw Fee 08:31:11 CDT CPT-76930 Aspir/Inject Med Joint 18:17:28 CDT CPT-57649 Venipuncture Draw Fee 10:13:30 CDT CPT-13942 Venipuncture Draw Fee 08:31:43 SENIOR CONTROLS ENGINEER CPT-JTINJ Joint Injection 18:34:50 CDT CPT-98968 Knee 3V 12:25:09 CDT CPT-88987 Venipuncture Draw Fee 12:15:57 CDT CPT-060 Medical Surveillance Exam 21:31:43 CDT 2011 CPT-83015 Venipuncture Draw Fee 08:32:05 SENIOR CONTROLS ENGINEER CPT-OV Office Visit 18:19:06 CDT
--- OUTSIDE RECORDS SUMMARY | 2020-01-18 12:14 | XMS REPORT | Clinical Summary ---
Author Author Admin, Mitch Leon Organization [facility] Address Unknown Phone Unavailable Allergies, Adverse Reactions, [...] gastrointestinal tract REACTIVE HYPOGLYCEMIA 251.2 Resolved Mitch rUbina DO Hypoglycemia, unspecified GOUT, WRIST 274.9 Active [...] for 1 week, then once daily FLUTICASONE MT OPIONATE 23847747119 Active Becky Sell ANNUAL GIVING DIRECTOR Active PREDNISONE 20 MG ORAL TABLET 2 tabs daily for 3 days 1 tab d aily for 3 days PREDNISONE 53862343354 No Longer Active Becky Sell ANNUAL GIVING DIRECTOR Active MINOXIDIL 2.5 MG ORAL TABLET 1 tablet twice daily for high b lood pressure MINOXIDIL 65361827735 Active Mitch Urbina DO Ac tive METFORMIN HCL ER 500 MG ORAL TABLET EXTENDED RELEASE 2 4 HOUR 2 tablets by mouth twice daily METFORMIN HCL 99491296642 Active Mitch Urbina DO Active GLIMEPIRIDE 4 MG ORAL TABLET 1 tablet by mouth twice daily f or diabetes GLIMEPIRIDE 79399858788 Active Mitch Urbina DO Active GLIMEPIRIDE 2 MG ORAL TABLET 1 po BID GLIMEPI RIDE 30496277464 No Longer Active Mitch Urbina DO Active AMLODIPINE BESYLATE 5 MG ORAL TABLET 1 tablet by mouth daily AMLODIPINE BESYLATE 02588564328 Active Mitch Urbina DO Active PROVIGIL 200 MG ORAL TABLET 1/2 tab po q day MODA FINIL 07069534512 Active Renee Oconnor LPN Active FAMOTIDINE 20 MG ORAL TABLET by mouth twice a day 2017 FAMOTIDINE 03567925120 No Longer Active Mitch Urbina DO Active COLCRYS 0.6 MG ORAL TABLET 1 tab qid prn gout C OLCHICINE 07884591603 No Longer Active Mitch Urbina DO Active KEFLEX 500 MG ORAL CAPSULE 1 po qid CEPHALEXI N 01980244880 No Longer Active Mitch Urbina DO Active LOSARTAN POTASSIUM 100 MG ORAL TABLET 1 pill by mouth daily, for blood pressure LOSARTAN POTASSIUM 55808868191 Active Mitch Arnol Carlitos VELASQUEZ Active AMLODIPINE BESYLATE 5 MG ORAL TABLET 1 tablet by mouth daily 201 01/20/04 AMLODIPINE BESYLATE 61137325816 No Longer Active Joe fulton APRN Active MITIGARE 0.6 MG ORAL CAPSULE 2 capsules at onset of go ut pain, then take one capsule at 1 hour if symptoms persist. COLCHICINE 59 972555835 Active Mitch Urbina DO Active COUMADIN 1 MG ORAL TABLET 2 tabs orally daily with the 5mg tab to equal 7mg daily WARFARIN SODIUM 16319271197 Active Renee Oconnor LPN Active INVOKANA 100 MG ORAL TABLET 1 tablet orally daily CANAGLIFLOZIN 96239726873 Active Mitch Urbina DO Active MECLIZINE HCL 25 MG ORAL TABLET 1 po tid 3 days, then 1/2 ta b tid 3 days MECLIZINE HCL 28770526008 No Longer Active Corey SEGURA Active ALLOPURINOL 300 MG ORAL TABLET Take 1 tablet by mouth daily 2012 ALLOPURINOL 46433263937 No Longer Active Corey SEGURA Active CLONIDINE HCL 0.1 MG ORAL TABLET 1 po bid 7 days, then 1/2 t ab po bid 7 days CLONIDINE HCL 05443532831 No Longer Active Corey SEGURA Active COUMADIN 5 MG ORAL TABLET 1 tab PO daily WARFAR IN SODIUM 18198341008 Active Renee Oconnor LPN Active COUMADIN 4 MG ORAL TABLET 1 tablet daily WARFAR IN SODIUM 53961414082 No Longer Active Corey SEGURA Active POLYTRIM 17341-8.1 UNIT/ML-% OPHTHALMIC SOLUTION 1 rui p in affected eye every 3 hours while awake x 7 days POLYMYXIN B-TRIMETHOP RIM 49657208643 No Longer Active Corey SEGURA Active LOSARTAN POTASSIUM-HCTZ 100-12.5 MG ORAL TABLET 1 by m outh daily for high blood pressure LOSARTAN POTASSIUM-HCTZ 92445687552 No Longer A ctive Mitch Urbina DO Active LISINOPRIL-HYDROCHLOROTHIAZIDE 20-12.5 MG ORAL TABLET 1 tab by m outh daily LISINOPRIL-HYDROCHLOROTHIAZIDE 62199420287 No Longer Active Mitch Urbina DO Active LISINOPRIL 20 MG ORAL TABLET 1 tab po at HS LIS INOPRIL 61134037730 No Longer Active Mitch Urbina DO Active COUMADIN 5 MG ORAL TABLET 1 by mouth every other day 2 WARFARIN SODIUM 26886708952 No Longer Active Mitch Urbina DO Active COUMADIN 6 MG ORAL TABLET 1 by mouth every other day 2 WARFARIN SODIUM 41938339219 No Longer Active Mitch Urbina DO Active SIMVASTATIN 40 MG ORAL TABLET 1 tab daily at bedtime SIMVASTATIN 56826897290 Active Maria Rivas RN Active SIMVASTATIN 20 MG ORAL TABLET 1 tab daily at bedtime 2 SIMVASTATIN 24921447566 No Longer Active Mitch Urbina DO Active LOVENOX 100 MG/ML SUBCUTANEOUS SOLUTION One injection twice a da y ENOXAPARIN SODIUM 07642603623 No Longer Active Carmine Yusuf MD Active JANUVIA 50 MG ORAL TABLET Take one by mouth daily SITAGLIPTIN PHOSPHATE 24625311940 Active Renee Oconnor LPN Active JANUVIA 100 MG ORAL TABLET 1/2 by mouth every day 2011 SITAGLIPTIN PHOSPHATE 75319271470 No Longer Active Bijal Segal RN Acti ve METFORMIN HCL 500 MG ORAL TABLET 2 by mouth twice daily METFORMIN HCL 41955572301 No Longer Active Renee Oconnor LPN Active COLCRYS 0.6 MG ORAL TABLET 1 po q 6 hours prn gout pain COLCHICINE 07444600767 No Longer Active Camila Reese Active LISINOPRIL 5 MG ORAL TABLET 1 by mouth every day 11/17 LISINOPRIL 27527955514 No Longer Active Nguyen Ana Active KLOR-CON 20 MEQ ORAL PACKET Take one by mouth daily 09/10/08 POTASSIUM CHLORIDE 13727410682 No Longer Active Nguyen Ana Active FUROSEMIDE 40 MG ORAL TABLET 1 by mouth daily F UROSEMIDE 61467906402 No Longer Active Nguyen Ana Active PROVIGIL 100 MG ORAL TABLET Take one by mouth daily 08/20/04 MODAFINIL 69996709171 No Longer Active Mitch Urbina DO Active BACTRIM DS 800-160 MG ORAL TABLET 1 tab by mouth twice daily 201 10/19/09 TRIMETHOPRIM-SULFAMETHOXAZOLE 43180294157 No Longer Active Elian Hays MD Active ADULT ASPIRIN LOW STRENGTH 81 MG ORAL TABLET DISINTEGR ATING 1 by mouth every daily ASPIRIN 06712382669 Active Mitch Urbina DO Ac tive METOPROLOL TARTRATE 50 MG ORAL TABLET 1 by mouth twice daily METOPROLOL TARTRATE 29601015475 Active Maria Rivas RN Ac tive BACTRIM DS 800-160 MG ORAL TABLET 1 tab by mouth twice daily 201 10/19/09 BACTRIM DS 800-160 MG ORAL TABLET 614857 TRIMETHOPRIM-SULFAMETHOXAZOLE Inactive PROVIGIL 100 MG ORAL TABLET Take one by mouth daily 08/20/04 PROVIGIL 100 MG ORAL TABLET 577628 MODAFINIL Inactive FUROSEMIDE 40 MG ORAL TABLET 1 by mouth daily FUROSEMIDE 40 MG ORAL TABLET 964354 FUROSEMIDE Inactive KLOR-CON 20 MEQ ORAL PACKET Take one by mouth daily 09/10/08 KLOR- CON 20 MEQ ORAL PACKET 3001273 POTASSIUM CHLORIDE Inactive LISINOPRIL 5 MG ORAL TABLET 1 by mouth every day 11/17 LISINOPRIL 5 MG ORAL TABLET 574485 LISINOPRIL Inactive COLCRYS 0.6 MG ORAL TABLET 1 po q 6 hours prn gout pain COLCRYS 0.6 MG ORAL TABLET 792247 COLCHICINE Inactive JANUVIA 100 MG ORAL TABLET 1/2 by mouth every day 2011 JANUVIA 100 MG ORAL TABLET SITAGLIPTIN PHOSPHATE Inactive SIMVASTATIN 20 MG ORAL TABLET 1 tab daily at bedtime 2 SIMVASTATIN 20 MG ORAL TABLET 686304 SIMVASTATIN Inactive COUMADIN 6 MG ORAL TABLET 1 by mouth every other day 2 COUMADIN 6 MG ORAL TABLET 698324 WARFARIN SODIUM Inactive COUMADIN 5 MG ORAL TABLET 1 by mouth every other day 2 COUMADIN 5 MG ORAL TABLET 723201 WARFARIN SODIUM Inactive LISINOPRIL 20 MG ORAL TABLET 1 tab po at HS LISINOPRIL 20 MG ORAL TABLET 594592 LISINOPRIL Inactive LISINOPRIL-HYDROCHLOROTHIAZIDE 20-12.5 MG ORAL TABLET 1 tab by m outh daily LISINOPRIL-HYDROCHLOROTHIAZIDE 20-12.5 MG ORAL TABLET 682841 LISINOPRIL-HYDROCHLOROTHIAZIDE Inactive POLYTRIM 29390-7.1 UNIT/ML-% OPHTHALMIC SOLUTION 1 rui p in affected eye every 3 hours while awake x 7 days POLYTRIM 1000 0-0.1 UNIT/ML-% OPHTHALMIC SOLUTION 926265 POLYMYXIN B-TRIMETHOPRIM Inactive COUMADIN 4 MG ORAL TABLET 1 tablet daily COUMADIN 4 MG ORAL TABLET 037975 WARFARIN SODIUM Inactive CLONIDINE HCL 0.1 MG ORAL TABLET 1 po bid 7 days, then 1/2 t ab po bid 7 days CLONIDINE HCL 0.1 MG ORAL TABLET 043596 CLONIDIN E HCL Inactive ALLOPURINOL 300 MG ORAL TABLET Take 1 tablet by mouth daily 2012 ALLOPURINOL 300 MG ORAL TABLET 122482 ALLOPURINOL I nactive MECLIZINE HCL 25 MG ORAL TABLET 1 po tid 3 days, then 1/2 ta b tid 3 days MECLIZINE HCL 25 MG ORAL TABLET 085383 MECLIZINE HCL Inactive AMLODIPINE BESYLATE 5 MG ORAL TABLET 1 tablet by mouth daily 201 01/20/04 AMLODIPINE BESYLATE 5 MG ORAL TABLET 699956 AMLODIPINE BESYLATE Inactive KEFLEX 500 MG ORAL CAPSULE 1 po qid K EFLEX 500 MG ORAL CAPSULE 104412 CEPHALEXIN Inactive COLCRYS 0.6 MG ORAL TABLET 1 tab qid prn gout COLCRYS 0.6 MG ORAL TABLET 278215 COLCHICINE Inactive FAMOTIDINE 20 MG ORAL TABLET by mouth twice a day 2017 FAMOTIDINE 20 MG ORAL TABLET 956713 FAMOTIDINE Inactive GLIMEPIRIDE 2 MG ORAL TABLET 1 po BID GLIMEPIRIDE 2 MG ORAL TABLET 222135 GLIMEPIRIDE Inactive LOVENOX 100 MG/ML SUBCUTANEOUS SOLUTION One injection twice a da y LOVENOX 100 MG/ML SUBCUTANEOUS SOLUTION 007755 ENOXAPAR IN SODIUM Inactive PREDNISONE 20 MG ORAL TABLET 2 tabs daily for 3 days 1 tab d aily for 3 days PREDNISONE 20 MG ORAL TABLET 780724 PREDNISONE Inactive Advance Directives Directive Description Start [...] mg/dL Encounters Code Encounter Date Provider Facility CPT-85096 Level 3 Est. Patient 15:18:36 CDT Becky anderson [facility] CPT-10825 [id number] Vst-Est Level IV 10:06:35 CDT Stephy Ambrose [facility] CPT-72430 [id number] Vst-Est Level IV 10:52:00 [employer] SYSTEM[employer] SPECIALIST Stephy Ambrose [facility] CPT-01681 Level 3 Est. Patient 18:25:53 CDT Mitch luis [facility] CPT-89357 Level 3 Est. Patient 19:43:34 CDT Mitch luis [facility] CPT-18032 Level 4 Est. Patient 09:30:18 CDT Mitch luis [facility] CPT-26850 Level 3 Est. Patient 15:10:14 CDT Joe kamara [facility] CPT-33831 Level 3 Est. Patient 15:03:46 CDT Joe kamara [facility] CPT-58199 Level 3 Est. Patient 14:21:06 CDT Mitch luis [facility] CPT-07952 Level 3 Est. Patient 14:52:06 CDT Joe kamara [facility] CPT-86297 Level 3 Est. Patient 09:34:30 [employer]SP[employer] SYSTEMS SPECIALIST Mitch luis [facility] CPT-05949 Level 3 Est. Patient 09:37:15 CDT Mitch luis [facility] CPT-78442 Level 3 Est. Patient 17:01:00 CYBER [employer]SPORT SYSTEMS SPECIALIST Mitch luis [facility] CPT-83456 Level 3 Est. Patient 13:53:19 CYBER [employer]SPORT SYSTEMS SPECIALIST Mitch luis [facility] CPT-32981 Level 3 Est. Patient 19:19:37 CY[employer]SP[employer] SYSTEMS SPECIALIST Mitch luis [facility] CPT-74552 Level 3 Est. Patient 13:25:53 CY[employer]SP[employer] SYSTEMS SPECIALIST Tavo toure MD [facility] CPT-05171 Level 3 Est. Patient 18:17:28 CDT Mitch luis [facility] CPT-50906 Level 3 Est. Patient 15:22:57 CDT Mitch luis [facility] CPT-19749 Level 3 Est. Patient 18:21:50 CDT Mitch luis [facility] CPT-08027 Level 3 Est. Patient 18:20:38 CDT Mitch luis [facility] CPT-04984 Level 3 Est. Patient 15:37:55 CDT Mitch luis [facility] CPT-15994 Level 2 Est. Patient 15:54:44 CDT Carmine benton MD [facility]-68038 Level 3 Est. Patient 21:46:01 [employer]S SPECIALIST Mitch luis [facility] CPT-26909 Level 3 Est. Patient 22:15:50 CDT Mitch luis [facility] CPT-21109 Level 3 Est. Patient 10:48:15 CDT Mitch luis [facility] CPT-89611 Level 3 Est. Patient 23:20:57 CDT Tavo toure MD [facility] CPT-56824 Level 3 Est. Patient 16:26:13 CDT Mitch luis [facility] Procedures Code Procedure Name Date Entry Date Standard Desc ription CPT-23926 Venipuncture Draw Fee 18:00:48 CDT CPT-02496 Venipuncture Draw Fee 14:56:20 CDT CPT-JTINJ Asp/Joint Injection 18:47:02 CDT CPT-83197 Venipuncture Draw Fee 09:26:17 CDT CPT-95198 PT/INR - LAB USE ONLY 13:32:49 [employer] SPECIALIST CPT-82430 Venipuncture Draw Fee 13:32:49 [employer] SPECIALIST CPT-51518 PT/INR - LAB USE ONLY 10:34:49 CY[employer]SP[employer] SPECIALIST CPT-79974 Venipuncture Draw Fee 10:34:48 CYBER [employer]SP[employer] SYSTEMS SPECIALIST CPT-60675 PT/INR - LAB USE ONLY 09:22:03 CY[employer]S SPECIALIST CPT-20695 Venipuncture Draw Fee 09:22:02 CYBER [employer]SP[employer] SPECIALIST CPT-43448 Hemoccult IFOBT - LAB USE ONLY 10:27:22 CDT CPT-72994 Venipuncture Draw Fee 08:27:08 CDT CPT-98151 Liver Profile - LAB USE ONLY 08:27:07 CDT 2 CPT-35402 Microalbumin - LAB USE ONLY 08:27:07 CDT 20 25/05/09 CPT-27265 PT/INR - LAB USE ONLY 08:27:07 CDT CPT-71894 HGBA1C - LAB USE ONLY 08:27:07 CDT CPT-39512 CBC - LAB USE ONLY 08:27:07 CDT CPT-03855 Venipuncture Draw Fee 11:09:14 CDT CPT-17524 Venipuncture Draw Fee 08:32:21 [employer]SP[employer] SPECIALIST CPT-16177 Venipuncture Draw Fee 09:38:56 [employer] SPECIALIST CPT-31456 No Charge Offi Visit 21:36:07 CDT 1 CPT-74253 Venipuncture Draw Fee 10:13:28 CY[employer] SPECIALIST CPT-75716 Venipuncture Draw Fee 08:31:11 CDT CPT-92061 Aspir/Inject Med Joint 18:17:28 CDT CPT-70700 Venipuncture Draw Fee 10:13:30 CDT CPT-34326 Venipuncture Draw Fee 08:31:43 CYBER [employer]SP[employer] SYSTEMS SPECIALIST CPT-JTINJ Joint Injection 18:34:50 CDT CPT-63592 Knee 3V 12:25:09 CDT CPT-36174 Venipuncture Draw Fee 12:15:57 CDT CPT-060 Medical Surveillance Exam 21:31:43 CDT 2011 CPT-71692 Venipuncture Draw Fee 08:32:05 CYBER TRANSP[employer] SYSTEMS SPECIALIST CPT-OV Office Visit 18:19:06 CDT
--- OUTSIDE RECORDS SUMMARY | 2020-01-18 12:14 | XMS REPORT | Clinical Summary ---
Author Author Admin, Mitch Leon Organization [facility] Address Unknown Phone Unavailable Allergies, Adverse [...] bad river band or graft EDEMA 782.3 Active Mitch Urbina [...] 1 tablet by mouth daily AMLODIPINE BESYLATE 11456712113 Active Mitch Urbina DO Active MECLIZINE HCL 25 MG TAB 1 po tid 3 days, then 1/2 tab tid 3 days MECLIZINE HCL 84201082159 No Longer Active Corey SEGURA Active ALLOPURINOL 300 MG TABS Take 1 tablet by mouth daily 2 ALLOPURINOL 10306116812 No Longer Active Corey ESGURA Activ e CLONIDINE HCL 0.1 MG TABS 1 po bid 7 days, then 1/2 tab po b id 7 days CLONIDINE HCL 58131735397 No Longer Active Corey SEGURA Active COUMADIN 5 MG TABS 1 tab PO daily WARFARIN SODIUM 93743779841 Active Mitch Urbina DO Active COUMADIN 4 MG TABS 1 tablet daily WARFARIN SODI UM 28811567448 No Longer Active Corey SEGURA Active POLYTRIM 60383-5.1 UNIT/ML-% SOLN 1 drop in affected e ye every 3 hours while awake x 7 days POLYMYXIN B-TRIMETHOPRIM 67626243968 N o Longer Active Corey SEGURA Active LOSARTAN POTASSIUM-HCTZ 100-12.5 MG TABS 1 by mouth da rocky for high blood pressure LOSARTAN POTASSIUM-HCTZ 92213752892 Active Stephy Urbina DO Active LISINOPRIL-HYDROCHLOROTHIAZIDE 20-12.5 MG TABS 1 tab by mouth da rocky LISINOPRIL-HYDROCHLOROTHIAZIDE 35224205917 No Longer Active Mitch luis DO Active LISINOPRIL 20 MG TABS 1 tab po at HS LISINOPRIL 87037633799 No Longer Active Mitch Urbina DO Active COUMADIN 5 MG TABS 1 by mouth every other day WARFARIN SODIUM 73771457219 No Longer Active Mitch Urbina DO Active COUMADIN 6 MG TABS 1 by mouth every other day WARFARIN SODIUM 12161382906 No Longer Active Mitch Urbina DO Active COLCRYS 0.6 MG TABS 1 tab qid prn gout COLCHICINE 14794938987 Active Corey SEGURA Active SIMVASTATIN 40 MG TABS 1 tab daily at bedtime S IMVASTATIN 08441204242 Active Mitch Urbina DO Active SIMVASTATIN 20 MG TABS 1 tab daily at bedtime S IMVASTATIN 58408806017 No Longer Active Mitch Urbina DO Active LOVENOX 100 MG/ML SC SOLN One injection twice a day 09/15/15 ENOXAPARIN SODIUM 62912413070 No Longer Active Carimne Navarrete ctive JANUVIA 50 MG TABS Take one by mouth daily DIEGO GLIPTIN PHOSPHATE 90261482540 Active Mitch Urbina DO Active JANUVIA 100 MG TABS 1/2 by mouth every day DIEGO GLIPTIN PHOSPHATE 36768622914 No Longer Active Bijalseth Segal RN Active METFORMIN HCL 500 MG TABS 2 by mouth twice daily METFORMIN HCL 95858582441 Active Mitch Urbina DO Active GLIMEPIRIDE 4 MG TABS 1 tab po bid GLIMEPIRIDE 692612 57508 Active Mitch Urbina DO Active COLCRYS 0.6 MG TABS 1 po q 6 hours prn gout pain 03/02 COLCHICINE 08489563468 No Longer Active Camilamargarita Reese Active LISINOPRIL 5 MG TABS 1 by mouth every day LISIN OPRIL 96841817501 No Longer Active Nguyenmolly Perez Active KLOR-CON 20 MEQ PACK Take one by mouth daily 8 POTASSIUM CHLORIDE 75177157979 No Longer Active Nguyenmolly Perez Active FUROSEMIDE 40 MG TABS 1 by mouth daily FUROSEMI DE 70162739930 No Longer Active Nguyen Perez Active PROVIGIL 200 MG TABS 1/2 tab po q day MODAFINIL 61707 252470 Active Mitch Urbina DO Active PROVIGIL 100 MG TABS Take one by mouth daily MO DAFINIL 55875010482 No Longer Active Mitch Urbina DO Active BACTRIM DS 800-160 MG TAB 1 tab by mouth twice daily TRIMETHOPRIM-SULFAMETHOXAZOLE 90958634716 No Longer Active Renan Hays MD Active FAMOTIDINE 20 MG TABS by mouth twice a day FAMOTI DINE 21789591037 Active Mitch Urbina DO Active ADULT ASPIRIN LOW STRENGTH 81 MG TBDP 1 by mouth every daily ASPIRIN 94631496960 Active Mitch W Carlitos DO Active METOPROLOL TARTRATE 50 MG TABS 1 by mouth twice daily METOPROLOL TARTRATE 80363460959 Active Curly Coker MD Active BACTRIM DS 800-160 MG TAB 1 tab by mouth twice daily 2 BACTRIM DS 800-160 MG TAB TRIMETHOPRIM-SULFAMETHOXAZOLE Inac tive PROVIGIL 100 MG TABS Take one by mouth daily 4 PROVIGIL 100 MG TABS 994646 MODAFINIL Inactive FUROSEMIDE 40 MG TABS 1 by mouth daily FU ROSEMIDE 40 MG TABS 313756 FUROSEMIDE Inactive KLOR-CON 20 MEQ PACK Take one by mouth daily 8 KLOR-CON 20 MEQ PACK 019075 POTASSIUM CHLORIDE Inactive LISINOPRIL 5 MG TABS 1 by mouth every day LISINOPRIL 5 MG TABS 139519 LISINOPRIL Inactive COLCRYS 0.6 MG TABS 1 po q 6 hours prn gout pain 03/02 COLCRYS 0.6 MG TABS 842544 COLCHICINE Inactive JANUVIA 100 MG TABS 1/2 by mouth every day JANUVI A 100 MG TABS SITAGLIPTIN PHOSPHATE Inactive SIMVASTATIN 20 MG TABS 1 tab daily at bedtime SIMVASTATIN 20 MG TABS 480966 SIMVASTATIN Inactive COUMADIN 6 MG TABS 1 by mouth every other day COUMADIN 6 MG TABS 085866 WARFARIN SODIUM Inactive COUMADIN 5 MG TABS 1 by mouth every other day COUMADIN 5 MG TABS 189491 WARFARIN SODIUM Inactive LISINOPRIL 20 MG TABS 1 tab po at HS KOKI NOPRIL 20 MG TABS 570944 LISINOPRIL Inactive LISINOPRIL-HYDROCHLOROTHIAZIDE 20-12.5 MG TABS 1 tab by mouth da rocky LISINOPRIL-HYDROCHLOROTHIAZIDE 20-12.5 MG TABS 224063 LISINOPRIL-HYDROCHLOROTHIAZIDE Inactive POLYTRIM 92823-9.1 UNIT/ML-% SOLN 1 drop in affected e ye every 3 hours while awake x 7 days POLYTRIM 38308-8.1 UNIT/ML-% SOLN 80671 7 POLYMYXIN B-TRIMETHOPRIM Inactive COUMADIN 4 MG TABS 1 tablet daily COUMADIN 4 MG TABS 786300 WARFARIN SODIUM Inactive CLONIDINE HCL 0.1 MG TABS 1 po bid 7 days, then 1/2 tab po b id 7 days CLONIDINE HCL 0.1 MG TABS 838782 CLONIDINE HCL I nactive ALLOPURINOL 300 MG TABS Take 1 tablet by mouth daily 2 ALLOPURINOL 300 MG TABS 698778 ALLOPURINOL Inactive MECLIZINE HCL 25 MG TAB 1 po tid 3 days, then 1/2 tab tid 3 days MECLIZINE HCL 25 MG TAB 008121 MECLIZINE HCL Inactive LOVENOX 100 MG/ML SC SOLN One injection twice a day 09/15/15 LOVENOX 100 MG/ML SC SOLN 264595 ENOXAPARIN SODIUM Inactive Vital Signs Date Name [...] Ag - Chemistry sodium, serum 141 mmol/L 004-779 9829/07/06 potassium, serum 4.4 mmol/L 3.5-5.2 chloride, serum [...] Panel - Chemistry sodium, serum 137 mmol/L 521-839 9752/11/14 potassium, serum 4.4 mmol/L 3.5-5.2 chloride, serum [...] 8.0 % 4.3-6.0 cholesterol, serum 130 mg/dL 096-204 5312/11/14 triglyceride, serum, fasting 288 mg/dL 30-200 HDL cholesterol, serum 33 mg/dL 32-96 LDL cholesterol, serum 39 mg/dL 0-130 Lab Report: Comp. Metabolic Panel, HGBA1 C, Lipid Panel, Prothrombin Time - Chemistry sodium, serum 136 mmol/L 433-958 7389/12/02 potassium, serum 4.4 mmol/L 3.5-5.2 chloride, serum [...] 7.6 % 4.3-6.0 cholesterol, serum 117 mg/dL 980-632 5500/12/02 triglyceride, serum, fasting 226 mg/dL 30-200 HDL [...] 7.0 % 4.3-6.0 cholesterol, serum 120 mg/dL 438-531 8085/07/06 triglyceride, serum, fasting 186 mg/dL 30-200 HDL [...] 1.0-3.5 Encounters Code Encounter Date Provider Facility CPT-11745 Level 3 Est. Patient 09:37:15 CDT Mitch luis [facility] CPT-01433 Level 3 Est. Patient 17:01:00 SWITCH COUPLER Mitch Ambrose L janelle [facility] CPT-62655 Level 3 Est. Patient 13:53:19 SWITCH COUPLER Mitch Ambrose L janelle [facility] CPT-64891 Level 3 Est. Patient 19:19:37 SWITCH COUPLER Mitch W L janelle [facility] CPT-01699 Level 3 Est. Patient 13:25:53 SWITCH COUPLER Tavo toure MD [facility]-87400 Level 3 Est. Patient 18:17:28 CDT Mitch W L janelle [facility] CPT-93359 Level 3 Est. Patient 15:22:57 CDT Mitch W L janelle [facility] CPT-54997 Level 3 Est. Patient 18:21:50 CDT Mitch W L janelle [facility] CPT-69769 Level 3 Est. Patient 18:20:38 CDT Mitch W L ee [facility]-77816 Level 3 Est. Patient 15:37:55 CDT Mitch W L janelle [facility] CPT-50195 Level 2 Est. Patient 15:54:44 CDT Carmine benton MD [facility]-70118 Level 3 Est. Patient 21:46:01 SWITCH COUPLER Mitch W L janelle [facility] CPT-13287 Level 3 Est. Patient 22:15:50 CDT Mitch W L ee [facility] CPT-99923 Level 3 Est. Patient 10:48:15 CDT Mitch W L ee [facility] CPT-93470 Level 3 Est. Patient 23:20:57 CDT Tavo toure MD [facility] CPT-96604 Level 3 Est. Patient 16:26:13 CDT Mitch luis DO [facility] Procedures Code Procedure Name Date Entry Date Standard Desc ription CPT-49728 No Charge Offi Visit 21:36:07 CDT 1 CPT-97722 Venipuncture Draw Fee 10:13:28 SWITCH COUPLER CPT-79773 Venipuncture Draw Fee 08:31:11 CDT CPT-91849 Aspir/Inject Med Joint 18:17:28 CDT CPT-77894 Venipuncture Draw Fee 10:13:30 CDT CPT-16008 Venipuncture Draw Fee 08:31:43 SWITCH COUPLER CPT-JTINJ Joint Injection 18:34:50 CDT CPT-14728 Knee 3V 12:25:09 CDT CPT-83277 Venipuncture Draw Fee 12:15:57 CDT CPT-060 Medical Surveillance Exam 21:31:43 CDT 2011 CPT-76438 Venipuncture Draw Fee 08:32:05 SWITCH COUPLER CPT-OV Office Visit 18:19:06 CDT
--- OUTSIDE RECORDS SUMMARY | 2020-01-18 12:14 | XMS REPORT | Clinical Summary ---
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 MINOXIDIL 2.5 MG ORAL TABLET 1 tablet twice daily for high b lood pressure MINOXIDIL 44222283454 Active Mitch Urbina DO Ac tive METFORMIN HCL ER 500 MG ORAL TABLET EXTENDED RELEASE 2 4 HOUR 2 tablets by mouth twice daily METFORMIN HCL 37525963881 Active Mitch Urbina DO Active GLIMEPIRIDE 4 MG ORAL TABLET 1 tablet by mouth twice daily f or diabetes GLIMEPIRIDE 25021466580 Active Mitch Urbina DO Active GLIMEPIRIDE 2 MG ORAL TABLET 1 po BID GLIMEPI RIDE 38009761447 No Longer Active Mitch Urbina DO Active AMLODIPINE BESYLATE 5 MG ORAL TABLET 1 tablet by mouth daily AMLODIPINE BESYLATE 96953509345 Active Mitch Urbina DO Active PROVIGIL 200 MG ORAL TABLET 1/2 tab po q day MODA FINIL 49223571104 Active Renee Oconnor LPN Active FAMOTIDINE 20 MG ORAL TABLET by mouth twice a day 2017 FAMOTIDINE 02251563064 No Longer Active Mitch Urbina DO Active COLCRYS 0.6 MG ORAL TABLET 1 tab qid prn gout C OLCHICINE 81287554028 No Longer Active Mitch Urbina DO Active KEFLEX 500 MG ORAL CAPSULE 1 po qid CEPHALEXI N 35894038250 No Longer Active Mitch Urbina DO Active LOSARTAN POTASSIUM 100 MG ORAL TABLET 1 pill by mouth daily, for blood pressure LOSARTAN POTASSIUM 01773721512 Active Mitch Arnol Carlitos VELASQUEZ Active AMLODIPINE BESYLATE 5 MG ORAL TABLET 1 tablet by mouth daily 201 01/20/04 AMLODIPINE BESYLATE 80116080221 No Longer Active Joe fulton APRN Active MITIGARE 0.6 MG ORAL CAPSULE 2 capsules at onset of go ut pain, then take one capsule at 1 hour if symptoms persist. COLCHICINE 59 660332836 Active Mitch Urbina DO Active COUMADIN 1 MG ORAL TABLET 2 tabs orally daily with the 5mg tab to equal 7mg daily WARFARIN SODIUM 62732661051 Active Renee Oconnor LPN Active INVOKANA 100 MG ORAL TABLET 1 tablet orally daily CANAGLIFLOZIN 72611256307 Active Mitch Urbina DO Active MECLIZINE HCL 25 MG ORAL TABLET 1 po tid 3 days, then 1/2 ta b tid 3 days MECLIZINE HCL 19441038961 No Longer Active Corey SEGURA Active ALLOPURINOL 300 MG ORAL TABLET Take 1 tablet by mouth daily 2012 ALLOPURINOL 77550017716 No Longer Active Corey SEGURA Active CLONIDINE HCL 0.1 MG ORAL TABLET 1 po bid 7 days, then 1/2 t ab po bid 7 days CLONIDINE HCL 59237140472 No Longer Active Corey SEGURA Active COUMADIN 5 MG ORAL TABLET 1 tab PO daily WARFAR IN SODIUM 78085666118 Active Renee Oconnor LPN Active COUMADIN 4 MG ORAL TABLET 1 tablet daily WARFAR IN SODIUM 72663483356 No Longer Active Corey SEGURA Active POLYTRIM 18714-1.1 UNIT/ML-% OPHTHALMIC SOLUTION 1 rui p in affected eye every 3 hours while awake x 7 days POLYMYXIN B-TRIMETHOP RIM 17854802247 No Longer Active Corey SEGURA Active LOSARTAN POTASSIUM-HCTZ 100-12.5 MG ORAL TABLET 1 by m outh daily for high blood pressure LOSARTAN POTASSIUM-HCTZ 58141389349 No Longer A ctive Mitch Urbina DO Active LISINOPRIL-HYDROCHLOROTHIAZIDE 20-12.5 MG ORAL TABLET 1 tab by m outh daily LISINOPRIL-HYDROCHLOROTHIAZIDE 20564487836 No Longer Active Mitch Urbina DO Active LISINOPRIL 20 MG ORAL TABLET 1 tab po at HS LIS INOPRIL 82956927780 No Longer Active Mitch Urbina DO Active COUMADIN 5 MG ORAL TABLET 1 by mouth every other day 2 WARFARIN SODIUM 47183185705 No Longer Active Mitch Urbina DO Active COUMADIN 6 MG ORAL TABLET 1 by mouth every other day 2 WARFARIN SODIUM 73188723588 No Longer Active Mitch Urbina DO Active SIMVASTATIN 40 MG ORAL TABLET 1 tab daily at bedtime SIMVASTATIN 03111239826 Active Maria Rivas RN Active SIMVASTATIN 20 MG ORAL TABLET 1 tab daily at bedtime 2 SIMVASTATIN 58057534396 No Longer Active Mitch Urbina DO Active LOVENOX 100 MG/ML SUBCUTANEOUS SOLUTION One injection twice a da y ENOXAPARIN SODIUM 53554206295 No Longer Active Carmine Yusuf MD Active JANUVIA 50 MG ORAL TABLET Take one by mouth daily SITAGLIPTIN PHOSPHATE 88786819712 Active Renee Oconnor LPN Active JANUVIA 100 MG ORAL TABLET 1/2 by mouth every day 2011 SITAGLIPTIN PHOSPHATE 06970805478 No Longer Active Bijal Segal RN Acti ve METFORMIN HCL 500 MG ORAL TABLET 2 by mouth twice daily METFORMIN HCL 72385537838 No Longer Active Renee Oconnor LPN Active COLCRYS 0.6 MG ORAL TABLET 1 po q 6 hours prn gout pain COLCHICINE 19410972522 No Longer Active Camila Reese Active LISINOPRIL 5 MG ORAL TABLET 1 by mouth every day 11/17 LISINOPRIL 49614592216 No Longer Active Nguyen Aan Active KLOR-CON 20 MEQ ORAL PACKET Take one by mouth daily 09/10/08 POTASSIUM CHLORIDE 21433837084 No Longer Active Nguyen Ana Active FUROSEMIDE 40 MG ORAL TABLET 1 by mouth daily F UROSEMIDE 21978116262 No Longer Active Nguyen Ana Active PROVIGIL 100 MG ORAL TABLET Take one by mouth daily 08/20/04 MODAFINIL 65624487961 No Longer Active Mitch Urbina DO Active BACTRIM DS 800-160 MG ORAL TABLET 1 tab by mouth twice daily 201 10/19/09 TRIMETHOPRIM-SULFAMETHOXAZOLE 58931882913 No Longer Active Elian Hays MD Active ADULT ASPIRIN LOW STRENGTH 81 MG ORAL TABLET DISINTEGR ATING 1 by mouth every daily ASPIRIN 33718564292 Active Mitch Urbina DO Ac tive METOPROLOL TARTRATE 50 MG ORAL TABLET 1 by mouth twice daily METOPROLOL TARTRATE 13824596322 Active Maria Rivas RN Ac tive BACTRIM DS 800-160 MG ORAL TABLET 1 tab by mouth twice daily 201 10/19/09 BACTRIM DS 800-160 MG ORAL TABLET 419430 TRIMETHOPRIM-SULFAMETHOXAZOLE Inactive PROVIGIL 100 MG ORAL TABLET Take one by mouth daily 08/20/04 PROVIGIL 100 MG ORAL TABLET 937145 MODAFINIL Inactive FUROSEMIDE 40 MG ORAL TABLET 1 by mouth daily FUROSEMIDE 40 MG ORAL TABLET 066120 FUROSEMIDE Inactive KLOR-CON 20 MEQ ORAL PACKET Take one by mouth daily 09/10/08 KLOR- CON 20 MEQ ORAL PACKET 9608119 POTASSIUM CHLORIDE Inactive LISINOPRIL 5 MG ORAL TABLET 1 by mouth every day 11/17 LISINOPRIL 5 MG ORAL TABLET 044863 LISINOPRIL Inactive COLCRYS 0.6 MG ORAL TABLET 1 po q 6 hours prn gout pain COLCRYS 0.6 MG ORAL TABLET 014494 COLCHICINE Inactive JANUVIA 100 MG ORAL TABLET 1/2 by mouth every day 2011 JANUVIA 100 MG ORAL TABLET SITAGLIPTIN PHOSPHATE Inactive SIMVASTATIN 20 MG ORAL TABLET 1 tab daily at bedtime 2 SIMVASTATIN 20 MG ORAL TABLET 451943 SIMVASTATIN Inactive COUMADIN 6 MG ORAL TABLET 1 by mouth every other day 2 COUMADIN 6 MG ORAL TABLET 037407 WARFARIN SODIUM Inactive COUMADIN 5 MG ORAL TABLET 1 by mouth every other day 2 COUMADIN 5 MG ORAL TABLET 990286 WARFARIN SODIUM Inactive LISINOPRIL 20 MG ORAL TABLET 1 tab po at HS LISINOPRIL 20 MG ORAL TABLET 589105 LISINOPRIL Inactive LISINOPRIL-HYDROCHLOROTHIAZIDE 20-12.5 MG ORAL TABLET 1 tab by m outh daily LISINOPRIL-HYDROCHLOROTHIAZIDE 20-12.5 MG ORAL TABLET 846552 LISINOPRIL-HYDROCHLOROTHIAZIDE Inactive POLYTRIM 17048-5.1 UNIT/ML-% OPHTHALMIC SOLUTION 1 rui p in affected eye every 3 hours while awake x 7 days POLYTRIM 1000 0-0.1 UNIT/ML-% OPHTHALMIC SOLUTION 610638 POLYMYXIN B-TRIMETHOPRIM Inactive COUMADIN 4 MG ORAL TABLET 1 tablet daily COUMADIN 4 MG ORAL TABLET 185567 WARFARIN SODIUM Inactive CLONIDINE HCL 0.1 MG ORAL TABLET 1 po bid 7 days, then 1/2 t ab po bid 7 days CLONIDINE HCL 0.1 MG ORAL TABLET 671830 CLONIDIN E HCL Inactive ALLOPURINOL 300 MG ORAL TABLET Take 1 tablet by mouth daily 2012 ALLOPURINOL 300 MG ORAL TABLET 339450 ALLOPURINOL I nactive MECLIZINE HCL 25 MG ORAL TABLET 1 po tid 3 days, then 1/2 ta b tid 3 days MECLIZINE HCL 25 MG ORAL TABLET 632801 MECLIZINE HCL Inactive AMLODIPINE BESYLATE 5 MG ORAL TABLET 1 tablet by mouth daily 201 01/20/04 AMLODIPINE BESYLATE 5 MG ORAL TABLET 539727 AMLODIPINE BESYLATE Inactive KEFLEX 500 MG ORAL CAPSULE 1 po qid K EFLEX 500 MG ORAL CAPSULE 516306 CEPHALEXIN Inactive COLCRYS 0.6 MG ORAL TABLET 1 tab qid prn gout COLCRYS 0.6 MG ORAL TABLET 400561 COLCHICINE Inactive FAMOTIDINE 20 MG ORAL TABLET by mouth twice a day 2017 FAMOTIDINE 20 MG ORAL TABLET 553385 FAMOTIDINE Inactive GLIMEPIRIDE 2 MG ORAL TABLET 1 po BID GLIMEPIRIDE 2 MG ORAL TABLET 434544 GLIMEPIRIDE Inactive LOVENOX 100 MG/ML SUBCUTANEOUS SOLUTION One injection twice a da y LOVENOX 100 MG/ML SUBCUTANEOUS SOLUTION 236697 ENOXAPAR IN SODIUM Inactive PREDNISONE 20 MG ORAL TABLET 2 tabs daily for 3 days 1 tab d aily for 3 days PREDNISONE 20 MG ORAL TABLET 257328 PREDNISONE Inactive Advance Directives Directive Description Start [...] mg/dL Encounters Code Encounter Date Provider Facility CPT-64788 Level 3 Est. Patient 15:18:36 CDT Becky anderson [facility] CPT-99896 [id number] Vst-Est Level IV 10:06:35 CDT Stephy Ambrose [facility] CPT-14400 [id number] Vst-Est Level IV 10:52:00 THIRD RIGGER Stephy Ambrose [facility] CPT-83772 Level 3 Est. Patient 18:25:53 CDT Mitch luis [facility] CPT-49933 Level 3 Est. Patient 19:43:34 CDT Mitch luis [facility] CPT-25155 Level 4 Est. Patient 09:30:18 CDT Mitch luis [facility] CPT-70731 Level 3 Est. Patient 15:10:14 CDT Joe kamara [facility] CPT-50989 Level 3 Est. Patient 15:03:46 CDT Joe kamara [facility] CPT-43075 Level 3 Est. Patient 14:21:06 CDT Mitch luis [facility] CPT-49836 Level 3 Est. Patient 14:52:06 CDT Joe kamara [facility] CPT-53588 Level 3 Est. Patient 09:34:30 THIRD RIGGER Mitch luis [facility] CPT-18766 Level 3 Est. Patient 09:37:15 CDT Mitch luis [facility] CPT-75662 Level 3 Est. Patient 17:01:00 THIRD RIGGER Mitch lius [facility] CPT-50387 Level 3 Est. Patient 13:53:19 THIRD RIGGER Mitch luis [facility] CPT-72734 Level 3 Est. Patient 19:19:37 THIRD RIGGER Mitch luis [facility] CPT-57879 Level 3 Est. Patient 13:25:53 THIRD RIGGER Tavo toure MD [facility] CPT-68173 Level 3 Est. Patient 18:17:28 CDT Mitch luis [facility] CPT-75928 Level 3 Est. Patient 15:22:57 CDT Mitch luis [facility] CPT-54408 Level 3 Est. Patient 18:21:50 CDT Mitch luis [facility] CPT-57191 Level 3 Est. Patient 18:20:38 CDT Mitch luis [facility] CPT-22738 Level 3 Est. Patient 15:37:55 CDT Mitch luis [facility] CPT-42345 Level 2 Est. Patient 15:54:44 CDT Carmine benton MD [facility] Unit-71816 Level 3 Est. Patient 21:46:01 THIRD RIGGER Mitch luis [facility] CPT-61781 Level 3 Est. Patient 22:15:50 CDT Mitch luis [facility] CPT-25435 Level 3 Est. Patient 10:48:15 CDT Mitch luis [facility] CPT-95152 Level 3 Est. Patient 23:20:57 CDT Tavo toure MD [facility] CPT-03215 Level 3 Est. Patient 16:26:13 CDT Mitch luis [facility] Procedures Code Procedure Name Date Entry Date Standard Desc ription CPT-05044 Venipuncture Draw Fee 18:00:48 CDT CPT-15721 Venipuncture Draw Fee 14:56:20 CDT CPT-JTINJ Asp/Joint Injection 18:47:02 CDT CPT-84609 Venipuncture Draw Fee 09:26:17 CDT CPT-52894 PT/INR - LAB USE ONLY 13:32:49 THIRD RIGGER CPT-02910 Venipuncture Draw Fee 13:32:49 THIRD RIGGER CPT-95656 PT/INR - LAB USE ONLY 10:34:49 THIRD RIGGER CPT-59636 Venipuncture Draw Fee 10:34:48 THIRD RIGGER CPT-48937 PT/INR - LAB USE ONLY 09:22:03 THIRD RIGGER CPT-84597 Venipuncture Draw Fee 09:22:02 THIRD RIGGER CPT-14904 Hemoccult IFOBT - LAB USE ONLY 10:27:22 CDT CPT-17102 Venipuncture Draw Fee 08:27:08 CDT CPT-29332 Liver Profile - LAB USE ONLY 08:27:07 CDT 2 CPT-39992 Microalbumin - LAB USE ONLY 08:27:07 CDT 20 25/05/09 CPT-64746 PT/INR - LAB USE ONLY 08:27:07 CDT CPT-78661 HGBA1C - LAB USE ONLY 08:27:07 CDT CPT-80982 CBC - LAB USE ONLY 08:27:07 CDT CPT-04062 Venipuncture Draw Fee 11:09:14 CDT CPT-18399 Venipuncture Draw Fee 08:32:21 THIRD RIGGER CPT-59687 Venipuncture Draw Fee 09:38:56 THIRD RIGGER CPT-65816 No Charge Offi Visit 21:36:07 CDT 1 CPT-07693 Venipuncture Draw Fee 10:13:28 THIRD RIGGER CPT-57185 Venipuncture Draw Fee 08:31:11 CDT CPT-39129 Aspir/Inject Med Joint 18:17:28 CDT CPT-07748 Venipuncture Draw Fee 10:13:30 CDT CPT-16656 Venipuncture Draw Fee 08:31:43 THIRD RIGGER CPT-JTINJ Joint Injection 18:34:50 CDT CPT-65709 Knee 3V 12:25:09 CDT CPT-35200 Venipuncture Draw Fee 12:15:57 CDT CPT-060 Medical Surveillance Exam 21:31:43 CDT 2011 CPT-71415 Venipuncture Draw Fee 08:32:05 THIRD RIGGER CPT-OV Office Visit 18:19:06 CDT
--- OUTSIDE RECORDS SUMMARY | 2020-01-18 12:15 | XMS REPORT | Clinical Summary ---
Author Author Admin, Mitch Leon Organization [facility] Address Unknown Phone Unavailable Allergies, Adverse Reactions, [...] Coronary atherosclerosis of unspecified type of vessel, [place] or graft EDEMA 782.3 Resolved Mitch Urbina [...] for 1 week, then once daily FLUTICASONE DC OPIONATE 61255683583 Active Becky Sell LOOPER FIXER Active PREDNISONE 20 MG ORAL TABLET 2 tabs daily for 3 days 1 tab d aily for 3 days PREDNISONE 87003458659 No Longer Active Becky Sell LOOPER FIXER Active MINOXIDIL 2.5 MG ORAL TABLET 1 tablet twice daily for high b lood pressure MINOXIDIL 45193671184 Active Mitch Urbina DO Ac tive METFORMIN HCL ER 500 MG ORAL TABLET EXTENDED RELEASE 2 4 HOUR 2 tablets by mouth twice daily METFORMIN HCL 10437649098 Active Mitch Urbina DO Active GLIMEPIRIDE 4 MG ORAL TABLET 1 tablet by mouth twice daily f or diabetes GLIMEPIRIDE 85448693005 Active Mitch Urbina DO Active GLIMEPIRIDE 2 MG ORAL TABLET 1 po BID GLIMEPI RIDE 69443087793 No Longer Active Mitch Urbina DO Active AMLODIPINE BESYLATE 5 MG ORAL TABLET 1 tablet by mouth daily AMLODIPINE BESYLATE 35267033248 Active Mitch Urbina DO Active PROVIGIL 200 MG ORAL TABLET 1/2 tab po q day MODA FINIL 61722445627 Active Renee Oconnor LPN Active FAMOTIDINE 20 MG ORAL TABLET by mouth twice a day 2017 FAMOTIDINE 87812278998 No Longer Active Mitch Urbina DO Active COLCRYS 0.6 MG ORAL TABLET 1 tab qid prn gout C OLCHICINE 65900406871 No Longer Active Mitch Urbina DO Active KEFLEX 500 MG ORAL CAPSULE 1 po qid CEPHALEXI N 38965475627 No Longer Active Mitch Urbina DO Active LOSARTAN POTASSIUM 100 MG ORAL TABLET 1 pill by mouth daily, for blood pressure LOSARTAN POTASSIUM 62348947828 Active Mitch Arnol Carlitos VELASQUEZ Active AMLODIPINE BESYLATE 5 MG ORAL TABLET 1 tablet by mouth daily 201 01/20/04 AMLODIPINE BESYLATE 17138527055 No Longer Active Joe fulton APRN Active MITIGARE 0.6 MG ORAL CAPSULE 2 capsules at onset of go ut pain, then take one capsule at 1 hour if symptoms persist. COLCHICINE 59 715562741 Active Mitch Urbina DO Active COUMADIN 1 MG ORAL TABLET 2 tabs orally daily with the 5mg tab to equal 7mg daily WARFARIN SODIUM 97668626585 Active Renee Ocnonor LPN Active INVOKANA 100 MG ORAL TABLET 1 tablet orally daily CANAGLIFLOZIN 95448017996 Active Mitch Urbina DO Active MECLIZINE HCL 25 MG ORAL TABLET 1 po tid 3 days, then 1/2 ta b tid 3 days MECLIZINE HCL 91297966074 No Longer Active Corey SEGURA Active ALLOPURINOL 300 MG ORAL TABLET Take 1 tablet by mouth daily 2012 ALLOPURINOL 58301942351 No Longer Active Corey SEGURA Active CLONIDINE HCL 0.1 MG ORAL TABLET 1 po bid 7 days, then 1/2 t ab po bid 7 days CLONIDINE HCL 20937291023 No Longer Active Corey SEGURA Active COUMADIN 5 MG ORAL TABLET 1 tab PO daily WARFAR IN SODIUM 95383470826 Active Renee Oconnor LPN Active COUMADIN 4 MG ORAL TABLET 1 tablet daily WARFAR IN SODIUM 76758798462 No Longer Active Corey SEGURA Active POLYTRIM 49668-7.1 UNIT/ML-% OPHTHALMIC SOLUTION 1 rui p in affected eye every 3 hours while awake x 7 days POLYMYXIN B-TRIMETHOP RIM 77561386665 No Longer Active Corey SEGURA Active LOSARTAN POTASSIUM-HCTZ 100-12.5 MG ORAL TABLET 1 by m outh daily for high blood pressure LOSARTAN POTASSIUM-HCTZ 11934204472 No Longer A ctive Mitch Urbina DO Active LISINOPRIL-HYDROCHLOROTHIAZIDE 20-12.5 MG ORAL TABLET 1 tab by m outh daily LISINOPRIL-HYDROCHLOROTHIAZIDE 23881820160 No Longer Active Mitch Urbina DO Active LISINOPRIL 20 MG ORAL TABLET 1 tab po at HS LIS INOPRIL 70738607487 No Longer Active Mitch Urbina DO Active COUMADIN 5 MG ORAL TABLET 1 by mouth every other day 2 WARFARIN SODIUM 81293729229 No Longer Active Mitch Urbina DO Active COUMADIN 6 MG ORAL TABLET 1 by mouth every other day 2 WARFARIN SODIUM 38950377446 No Longer Active Mitch Urbina DO Active SIMVASTATIN 40 MG ORAL TABLET 1 tab daily at bedtime SIMVASTATIN 56747138562 Active Maria Rivas RN Active SIMVASTATIN 20 MG ORAL TABLET 1 tab daily at bedtime 2 SIMVASTATIN 69478089120 No Longer Active Mitch Urbina DO Active LOVENOX 100 MG/ML SUBCUTANEOUS SOLUTION One injection twice a da y ENOXAPARIN SODIUM 10962330287 No Longer Active Carmine Yusuf MD Active JANUVIA 50 MG ORAL TABLET Take one by mouth daily SITAGLIPTIN PHOSPHATE 27316069583 Active Renee Oconnor LPN Active JANUVIA 100 MG ORAL TABLET 1/2 by mouth every day 2011 SITAGLIPTIN PHOSPHATE 58295588183 No Longer Active Bijal Segal RN Acti ve METFORMIN HCL 500 MG ORAL TABLET 2 by mouth twice daily METFORMIN HCL 96248012091 No Longer Active Renee Oconnor LPN Active COLCRYS 0.6 MG ORAL TABLET 1 po q 6 hours prn gout pain COLCHICINE 69550168722 No Longer Active Camila Reese Active LISINOPRIL 5 MG ORAL TABLET 1 by mouth every day 11/17 LISINOPRIL 73336704705 No Longer Active Nguyen Ana Active KLOR-CON 20 MEQ ORAL PACKET Take one by mouth daily 09/10/08 POTASSIUM CHLORIDE 73724717457 No Longer Active Nguyen Ana Active FUROSEMIDE 40 MG ORAL TABLET 1 by mouth daily F UROSEMIDE 49434705203 No Longer Active Nguyen Ana Active PROVIGIL 100 MG ORAL TABLET Take one by mouth daily 08/20/04 MODAFINIL 16165955890 No Longer Active Mitch Urbina DO Active BACTRIM DS 800-160 MG ORAL TABLET 1 tab by mouth twice daily 201 10/19/09 TRIMETHOPRIM-SULFAMETHOXAZOLE 93034903134 No Longer Active Elian Hays MD Active ADULT ASPIRIN LOW STRENGTH 81 MG ORAL TABLET DISINTEGR ATING 1 by mouth every daily ASPIRIN 64655793645 Active Mitch Urbina DO Ac tive METOPROLOL TARTRATE 50 MG ORAL TABLET 1 by mouth twice daily METOPROLOL TARTRATE 67537475701 Active Maria Rivas RN Ac tive BACTRIM DS 800-160 MG ORAL TABLET 1 tab by mouth twice daily 201 10/19/09 BACTRIM DS 800-160 MG ORAL TABLET 227198 TRIMETHOPRIM-SULFAMETHOXAZOLE Inactive PROVIGIL 100 MG ORAL TABLET Take one by mouth daily 08/20/04 PROVIGIL 100 MG ORAL TABLET 274203 MODAFINIL Inactive FUROSEMIDE 40 MG ORAL TABLET 1 by mouth daily FUROSEMIDE 40 MG ORAL TABLET 145186 FUROSEMIDE Inactive KLOR-CON 20 MEQ ORAL PACKET Take one by mouth daily 09/10/08 KLOR- CON 20 MEQ ORAL PACKET 9147807 POTASSIUM CHLORIDE Inactive LISINOPRIL 5 MG ORAL TABLET 1 by mouth every day 11/17 LISINOPRIL 5 MG ORAL TABLET 113402 LISINOPRIL Inactive COLCRYS 0.6 MG ORAL TABLET 1 po q 6 hours prn gout pain COLCRYS 0.6 MG ORAL TABLET 917989 COLCHICINE Inactive JANUVIA 100 MG ORAL TABLET 1/2 by mouth every day 2011 JANUVIA 100 MG ORAL TABLET SITAGLIPTIN PHOSPHATE Inactive SIMVASTATIN 20 MG ORAL TABLET 1 tab daily at bedtime 2 SIMVASTATIN 20 MG ORAL TABLET 404877 SIMVASTATIN Inactive COUMADIN 6 MG ORAL TABLET 1 by mouth every other day 2 COUMADIN 6 MG ORAL TABLET 898751 WARFARIN SODIUM Inactive COUMADIN 5 MG ORAL TABLET 1 by mouth every other day 2 COUMADIN 5 MG ORAL TABLET 484458 WARFARIN SODIUM Inactive LISINOPRIL 20 MG ORAL TABLET 1 tab po at HS LISINOPRIL 20 MG ORAL TABLET 276595 LISINOPRIL Inactive LISINOPRIL-HYDROCHLOROTHIAZIDE 20-12.5 MG ORAL TABLET 1 tab by m outh daily LISINOPRIL-HYDROCHLOROTHIAZIDE 20-12.5 MG ORAL TABLET 053796 LISINOPRIL-HYDROCHLOROTHIAZIDE Inactive POLYTRIM 60959-1.1 UNIT/ML-% OPHTHALMIC SOLUTION 1 rui p in affected eye every 3 hours while awake x 7 days POLYTRIM 1000 0-0.1 UNIT/ML-% OPHTHALMIC SOLUTION 613339 POLYMYXIN B-TRIMETHOPRIM Inactive COUMADIN 4 MG ORAL TABLET 1 tablet daily COUMADIN 4 MG ORAL TABLET 626719 WARFARIN SODIUM Inactive CLONIDINE HCL 0.1 MG ORAL TABLET 1 po bid 7 days, then 1/2 t ab po bid 7 days CLONIDINE HCL 0.1 MG ORAL TABLET 815988 CLONIDIN E HCL Inactive ALLOPURINOL 300 MG ORAL TABLET Take 1 tablet by mouth daily 2012 ALLOPURINOL 300 MG ORAL TABLET 880164 ALLOPURINOL I nactive MECLIZINE HCL 25 MG ORAL TABLET 1 po tid 3 days, then 1/2 ta b tid 3 days MECLIZINE HCL 25 MG ORAL TABLET 600116 MECLIZINE HCL Inactive AMLODIPINE BESYLATE 5 MG ORAL TABLET 1 tablet by mouth daily 201 01/20/04 AMLODIPINE BESYLATE 5 MG ORAL TABLET 689144 AMLODIPINE BESYLATE Inactive KEFLEX 500 MG ORAL CAPSULE 1 po qid K EFLEX 500 MG ORAL CAPSULE 876716 CEPHALEXIN Inactive COLCRYS 0.6 MG ORAL TABLET 1 tab qid prn gout COLCRYS 0.6 MG ORAL TABLET 504128 COLCHICINE Inactive FAMOTIDINE 20 MG ORAL TABLET by mouth twice a day 2017 FAMOTIDINE 20 MG ORAL TABLET 766151 FAMOTIDINE Inactive GLIMEPIRIDE 2 MG ORAL TABLET 1 po BID GLIMEPIRIDE 2 MG ORAL TABLET 583486 GLIMEPIRIDE Inactive LOVENOX 100 MG/ML SUBCUTANEOUS SOLUTION One injection twice a da y LOVENOX 100 MG/ML SUBCUTANEOUS SOLUTION 059153 ENOXAPAR IN SODIUM Inactive PREDNISONE 20 MG ORAL TABLET 2 tabs daily for 3 days 1 tab d aily for 3 days PREDNISONE 20 MG ORAL TABLET 794396 PREDNISONE Inactive Advance Directives Directive Description Start [...] mg/dL Encounters Code Encounter Date Provider Facility CPT-36003 Level 3 Est. Patient 15:18:36 CDT Becky anderson [facility] CPT-92431 [id number] Vst-Est Level IV 10:06:35 CDT Stephy Ambrose [facility] CPT-44305 [id number] Vst-Est Level IV 10:52:00 DOUBLE NEEDLE STITCHER Stephy Ambrose [facility] CPT-49335 Level 3 Est. Patient 18:25:53 CDT Mitch luis [facility] CPT-00675 Level 3 Est. Patient 19:43:34 CDT Mitch luis [facility] CPT-53913 Level 4 Est. Patient 09:30:18 CDT Mitch luis [facility] CPT-53646 Level 3 Est. Patient 15:10:14 CDT Joe kamara [facility] CPT-38457 Level 3 Est. Patient 15:03:46 CDT Joe kamara [facility] CPT-50890 Level 3 Est. Patient 14:21:06 CDT Mitch luis [facility] CPT-38495 Level 3 Est. Patient 14:52:06 CDT Joe kamara [facility] CPT-24215 Level 3 Est. Patient 09:34:30 DOUBLE NEEDLE STITCHER Mitch luis [facility] CPT-56995 Level 3 Est. Patient 09:37:15 CDT iMtch luis [facility] CPT-82619 Level 3 Est. Patient 17:01:00 DOUBLE NEEDLE STITCHER Mitch luis [facility] CPT-95916 Level 3 Est. Patient 13:53:19 DOUBLE NEEDLE STITCHER Mitch luis [facility] CPT-41848 Level 3 Est. Patient 19:19:37 DOUBLE NEEDLE STITCHER Mitch luis [facility] CPT-22009 Level 3 Est. Patient 13:25:53 DOUBLE NEEDLE STITCHER Tavo toure MD [facility] CPT-66409 Level 3 Est. Patient 18:17:28 CDT Mitch luis [facility] CPT-91744 Level 3 Est. Patient 15:22:57 CDT Mitch luis [facility] CPT-37181 Level 3 Est. Patient 18:21:50 CDT Mitch luis [facility] CPT-65482 Level 3 Est. Patient 18:20:38 CDT Mitch luis [facility] CPT-28102 Level 3 Est. Patient 15:37:55 CDT Mitch luis [facility] CPT-94758 Level 2 Est. Patient 15:54:44 CDT Carmine benton MD [facility]-06032 Level 3 Est. Patient 21:46:01 DOUBLE NEEDLE STITCHER Mitch luis [facility] CPT-15967 Level 3 Est. Patient 22:15:50 CDT Mitch luis [facility] CPT-32581 Level 3 Est. Patient 10:48:15 CDT Mitch luis [facility] CPT-10523 Level 3 Est. Patient 23:20:57 CDT Tavo toure MD [facility] CPT-81933 Level 3 Est. Patient 16:26:13 CDT Mitch luis [facility] Procedures Code Procedure Name Date Entry Date Standard Desc ription CPT-59646 Venipuncture Draw Fee 18:00:48 CDT CPT-62180 Venipuncture Draw Fee 14:56:20 CDT CPT-JTINJ Asp/Joint Injection 18:47:02 CDT CPT-40992 Venipuncture Draw Fee 09:26:17 CDT CPT-07642 PT/INR - LAB USE ONLY 13:32:49 DOUBLE NEEDLE STITCHER CPT-72815 Venipuncture Draw Fee 13:32:49 DOUBLE NEEDLE STITCHER CPT-76561 PT/INR - LAB USE ONLY 10:34:49 DOUBLE NEEDLE STITCHER CPT-14897 Venipuncture Draw Fee 10:34:48 DOUBLE NEEDLE STITCHER CPT-61404 PT/INR - LAB USE ONLY 09:22:03 DOUBLE NEEDLE STITCHER CPT-39898 Venipuncture Draw Fee 09:22:02 DOUBLE NEEDLE STITCHER CPT-82400 Hemoccult IFOBT - LAB USE ONLY 10:27:22 CDT CPT-65317 Venipuncture Draw Fee 08:27:08 CDT CPT-52286 Liver Profile - LAB USE ONLY 08:27:07 CDT 2 CPT-55301 Microalbumin - LAB USE ONLY 08:27:07 CDT 20 25/05/09 CPT-06504 PT/INR - LAB USE ONLY 08:27:07 CDT CPT-48612 HGBA1C - LAB USE ONLY 08:27:07 CDT CPT-06805 CBC - LAB USE ONLY 08:27:07 CDT CPT-82165 Venipuncture Draw Fee 11:09:14 CDT CPT-50540 Venipuncture Draw Fee 08:32:21 DOUBLE NEEDLE STITCHER CPT-83657 Venipuncture Draw Fee 09:38:56 DOUBLE NEEDLE STITCHER CPT-19474 No Charge Offi Visit 21:36:07 CDT 1 CPT-40811 Venipuncture Draw Fee 10:13:28 DOUBLE NEEDLE STITCHER CPT-24313 Venipuncture Draw Fee 08:31:11 CDT CPT-56390 Aspir/Inject Med Joint 18:17:28 CDT CPT-29847 Venipuncture Draw Fee 10:13:30 CDT CPT-07756 Venipuncture Draw Fee 08:31:43 DOUBLE NEEDLE STITCHER CPT-JTINJ Joint Injection 18:34:50 CDT CPT-11352 Knee 3V 12:25:09 CDT CPT-78968 Venipuncture Draw Fee 12:15:57 CDT CPT-060 Medical Surveillance Exam 21:31:43 CDT 2011 CPT-83432 Venipuncture Draw Fee 08:32:05 DOUBLE NEEDLE STITCHER CPT-OV Office Visit 18:19:06 CDT
--- OUTSIDE RECORDS SUMMARY | 2020-01-18 12:15 | XMS REPORT | Clinical Summary ---
[...] for 1 week, then once daily FLUTICASONE NE OPIONATE 23215863587 Active Becky Sell CAMPAIGN DEVELOPER Active PREDNISONE 20 MG ORAL TABLET 2 tabs daily for 3 days 1 tab d aily for 3 days PREDNISONE 61217962565 No Longer Active Becky Sell CAMPAIGN DEVELOPER Active MINOXIDIL 2.5 MG ORAL TABLET 1 tablet twice daily for high b lood pressure MINOXIDIL 32681956205 Active Mitch Urbina DO Ac tive METFORMIN HCL ER 500 MG ORAL TABLET EXTENDED RELEASE 2 4 HOUR 2 tablets by mouth twice daily METFORMIN HCL 38224060925 Active Mitch Urbina DO Active GLIMEPIRIDE 4 MG ORAL TABLET 1 tablet by mouth twice daily f or diabetes GLIMEPIRIDE 94635538794 Active Mitch Urbina DO Active GLIMEPIRIDE 2 MG ORAL TABLET 1 po BID GLIMEPI RIDE 18629797406 No Longer Active Mitch Urbina DO Active AMLODIPINE BESYLATE 5 MG ORAL TABLET 1 tablet by mouth daily AMLODIPINE BESYLATE 16570351532 Active Mitch Urbina DO Active PROVIGIL 200 MG ORAL TABLET 1/2 tab po q day MODA FINIL 65580642113 Active Renee Oconnor LPN Active FAMOTIDINE 20 MG ORAL TABLET by mouth twice a day 2017 FAMOTIDINE 95240887096 No Longer Active Mitch Urbina DO Active COLCRYS 0.6 MG ORAL TABLET 1 tab qid prn gout C OLCHICINE 49431926665 No Longer Active iMtch Urbina DO Active KEFLEX 500 MG ORAL CAPSULE 1 po qid CEPHALEXI N 22675364403 No Longer Active Mitch Urbina DO Active LOSARTAN POTASSIUM 100 MG ORAL TABLET 1 pill by mouth daily, for blood pressure LOSARTAN POTASSIUM 87499301786 Active Mitch Urbina DO Active AMLODIPINE BESYLATE 5 MG ORAL TABLET 1 tablet by mouth daily 201 01/20/04 AMLODIPINE BESYLATE 18254396510 No Longer Active Joe fulton APRN Active MITIGARE 0.6 MG ORAL CAPSULE 2 capsules at onset of go ut pain, then take one capsule at 1 hour if symptoms persist. COLCHICINE 59 297317415 Active Mitch Urbina DO Active COUMADIN 1 MG ORAL TABLET 2 tabs orally daily with the 5mg tab to equal 7mg daily WARFARIN SODIUM 30380720758 Active Renee Oconnor LPN Active INVOKANA 100 MG ORAL TABLET 1 tablet orally daily CANAGLIFLOZIN 23525953679 Active Mitch Urbina DO Active MECLIZINE HCL 25 MG ORAL TABLET 1 po tid 3 days, then 1/2 ta b tid 3 days MECLIZINE HCL 99893146765 No Longer Active Corey SEGURA Active ALLOPURINOL 300 MG ORAL TABLET Take 1 tablet by mouth daily 2012 ALLOPURINOL 83755597807 No Longer Active Corey SEGURA Active CLONIDINE HCL 0.1 MG ORAL TABLET 1 po bid 7 days, then 1/2 t ab po bid 7 days CLONIDINE HCL 95954201500 No Longer Active Corey SEGURA Active COUMADIN 5 MG ORAL TABLET 1 tab PO daily WARFAR IN SODIUM 87748975370 Active Renee Oconnor LPN Active COUMADIN 4 MG ORAL TABLET 1 tablet daily WARFAR IN SODIUM 58496966468 No Longer Active Corey SEGURA Active POLYTRIM 01978-4.1 UNIT/ML-% OPHTHALMIC SOLUTION 1 rui p in affected eye every 3 hours while awake x 7 days POLYMYXIN B-TRIMETHOP RIM 98809313437 No Longer Active Corey SEGURA Active LOSARTAN POTASSIUM-HCTZ 100-12.5 MG ORAL TABLET 1 by m outh daily for high blood pressure LOSARTAN POTASSIUM-HCTZ 59127240431 No Longer A ctive Mitch Urbina DO Active LISINOPRIL-HYDROCHLOROTHIAZIDE 20-12.5 MG ORAL TABLET 1 tab by m outh daily LISINOPRIL-HYDROCHLOROTHIAZIDE 48173565768 No Longer Active Mitch Urbina DO Active LISINOPRIL 20 MG ORAL TABLET 1 tab po at HS LIS INOPRIL 38128175155 No Longer Active Mitch Urbina DO Active COUMADIN 5 MG ORAL TABLET 1 by mouth every other day 2 WARFARIN SODIUM 37243070904 No Longer Active Mitch Urbina DO Active COUMADIN 6 MG ORAL TABLET 1 by mouth every other day 2 WARFARIN SODIUM 81400445336 No Longer Active Mitch Urbina DO Active SIMVASTATIN 40 MG ORAL TABLET 1 tab daily at bedtime SIMVASTATIN 86933515563 Active Maria Rivas RN Active SIMVASTATIN 20 MG ORAL TABLET 1 tab daily at bedtime 2 SIMVASTATIN 76688638660 No Longer Active Mitch Urbina DO Active LOVENOX 100 MG/ML SUBCUTANEOUS SOLUTION One injection twice a da y ENOXAPARIN SODIUM 29245085684 No Longer Active Carmine Yusuf MD Active JANUVIA 50 MG ORAL TABLET Take one by mouth daily SITAGLIPTIN PHOSPHATE 32401870763 Active Renee Oconnor LPN Active JANUVIA 100 MG ORAL TABLET 1/2 by mouth every day 2011 SITAGLIPTIN PHOSPHATE 28416261385 No Longer Active Bijal Segal RN Acti ve METFORMIN HCL 500 MG ORAL TABLET 2 by mouth twice daily METFORMIN HCL 65165475791 No Longer Active Renee Oconnor LPN Active COLCRYS 0.6 MG ORAL TABLET 1 po q 6 hours prn gout pain COLCHICINE 74413275804 No Longer Active Camila Reese Active LISINOPRIL 5 MG ORAL TABLET 1 by mouth every day 11/17 LISINOPRIL 77319346808 No Longer Active Nguyen Ana Active KLOR-CON 20 MEQ ORAL PACKET Take one by mouth daily 09/10/08 POTASSIUM CHLORIDE 51687499935 No Longer Active Nguyen Ana Active FUROSEMIDE 40 MG ORAL TABLET 1 by mouth daily F UROSEMIDE 30204000369 No Longer Active Nguyen Ana Active PROVIGIL 100 MG ORAL TABLET Take one by mouth daily 08/20/04 MODAFINIL 85730558441 No Longer Active Mitch Urbina DO Active BACTRIM DS 800-160 MG ORAL TABLET 1 tab by mouth twice daily 201 10/19/09 TRIMETHOPRIM-SULFAMETHOXAZOLE 35337365640 No Longer Active Elian Hays MD Active ADULT ASPIRIN LOW STRENGTH 81 MG ORAL TABLET DISINTEGR ATING 1 by mouth every daily ASPIRIN 10364710410 Active Mitch Urbina DO Ac tive METOPROLOL TARTRATE 50 MG ORAL TABLET 1 by mouth twice daily METOPROLOL TARTRATE 01533878854 Active Maria Rivas RN Ac tive BACTRIM DS 800-160 MG ORAL TABLET 1 tab by mouth twice daily 201 10/19/09 BACTRIM DS 800-160 MG ORAL TABLET 293998 TRIMETHOPRIM-SULFAMETHOXAZOLE Inactive PROVIGIL 100 MG ORAL TABLET Take one by mouth daily 08/20/04 PROVIGIL 100 MG ORAL TABLET 140147 MODAFINIL Inactive FUROSEMIDE 40 MG ORAL TABLET 1 by mouth daily FUROSEMIDE 40 MG ORAL TABLET 736086 FUROSEMIDE Inactive KLOR-CON 20 MEQ ORAL PACKET Take one by mouth daily 09/10/08 KLOR- CON 20 MEQ ORAL PACKET 3855700 POTASSIUM CHLORIDE Inactive LISINOPRIL 5 MG ORAL TABLET 1 by mouth every day 11/17 LISINOPRIL 5 MG ORAL TABLET 506315 LISINOPRIL Inactive COLCRYS 0.6 MG ORAL TABLET 1 po q 6 hours prn gout pain COLCRYS 0.6 MG ORAL TABLET 908897 COLCHICINE Inactive JANUVIA 100 MG ORAL TABLET 1/2 by mouth every day 2011 JANUVIA 100 MG ORAL TABLET SITAGLIPTIN PHOSPHATE Inactive SIMVASTATIN 20 MG ORAL TABLET 1 tab daily at bedtime 2 SIMVASTATIN 20 MG ORAL TABLET 338093 SIMVASTATIN Inactive COUMADIN 6 MG ORAL TABLET 1 by mouth every other day 2 COUMADIN 6 MG ORAL TABLET 578264 WARFARIN SODIUM Inactive COUMADIN 5 MG ORAL TABLET 1 by mouth every other day 2 COUMADIN 5 MG ORAL TABLET 943317 WARFARIN SODIUM Inactive LISINOPRIL 20 MG ORAL TABLET 1 tab po at HS LISINOPRIL 20 MG ORAL TABLET 726154 LISINOPRIL Inactive LISINOPRIL-HYDROCHLOROTHIAZIDE 20-12.5 MG ORAL TABLET 1 tab by m outh daily LISINOPRIL-HYDROCHLOROTHIAZIDE 20-12.5 MG ORAL TABLET 666877 LISINOPRIL-HYDROCHLOROTHIAZIDE Inactive POLYTRIM 97445-8.1 UNIT/ML-% OPHTHALMIC SOLUTION 1 rui p in affected eye every 3 hours while awake x 7 days POLYTRIM 1000 0-0.1 UNIT/ML-% OPHTHALMIC SOLUTION 608047 POLYMYXIN B-TRIMETHOPRIM Inactive COUMADIN 4 MG ORAL TABLET 1 tablet daily COUMADIN 4 MG ORAL TABLET 109378 WARFARIN SODIUM Inactive CLONIDINE HCL 0.1 MG ORAL TABLET 1 po bid 7 days, then 1/2 t ab po bid 7 days CLONIDINE HCL 0.1 MG ORAL TABLET 001547 CLONIDIN E HCL Inactive ALLOPURINOL 300 MG ORAL TABLET Take 1 tablet by mouth daily 2012 ALLOPURINOL 300 MG ORAL TABLET 726290 ALLOPURINOL I nactive MECLIZINE HCL 25 MG ORAL TABLET 1 po tid 3 days, then 1/2 ta b tid 3 days MECLIZINE HCL 25 MG ORAL TABLET 756134 MECLIZINE HCL Inactive AMLODIPINE BESYLATE 5 MG ORAL TABLET 1 tablet by mouth daily 201 01/20/04 AMLODIPINE BESYLATE 5 MG ORAL TABLET 109179 AMLODIPINE BESYLATE Inactive KEFLEX 500 MG ORAL CAPSULE 1 po qid K EFLEX 500 MG ORAL CAPSULE 813711 CEPHALEXIN Inactive COLCRYS 0.6 MG ORAL TABLET 1 tab qid prn gout COLCRYS 0.6 MG ORAL TABLET 875160 COLCHICINE Inactive FAMOTIDINE 20 MG ORAL TABLET by mouth twice a day 2017 FAMOTIDINE 20 MG ORAL TABLET 191864 FAMOTIDINE Inactive GLIMEPIRIDE 2 MG ORAL TABLET 1 po BID GLIMEPIRIDE 2 MG ORAL TABLET 107533 GLIMEPIRIDE Inactive LOVENOX 100 MG/ML SUBCUTANEOUS SOLUTION One injection twice a da y LOVENOX 100 MG/ML SUBCUTANEOUS SOLUTION 595066 ENOXAPAR IN SODIUM Inactive PREDNISONE 20 MG ORAL TABLET 2 tabs daily for 3 days 1 tab d aily for 3 days PREDNISONE 20 MG ORAL TABLET 751773 PREDNISONE Inactive Advance Directives Directive Description Start [...] mg/dL Encounters Code Encounter Date Provider Facility CPT-56796 Level 3 Est. Patient 15:18:36 CDT Becky Se anderson [facility] CPT-29645 [id number] Vst-Est Level IV 10:06:35 CDT Stephy Ambrose [facility] CPT-33507 [id number] Vst-Est Level IV 10:52:00 CHEMICAL LABORATORY ASSISTANT Stephy Ambrose [facility] CPT-28731 Level 3 Est. Patient 18:25:53 CDT Mitch luis [facility] CPT-59591 Level 3 Est. Patient 19:43:34 CDT Mitch luis [facility] CPT-27975 Level 4 Est. Patient 09:30:18 CDT Mitch luis [facility] CPT-40846 Level 3 Est. Patient 15:10:14 CDT Joe kamara [facility] CPT-54494 Level 3 Est. Patient 15:03:46 CDT Joe kamara [facility] CPT-14037 Level 3 Est. Patient 14:21:06 CDT Mitch luis [facility] CPT-82146 Level 3 Est. Patient 14:52:06 CDT Joe kamara [facility] CPT-93722 Level 3 Est. Patient 09:34:30 CHEMICAL LABORATORY ASSISTANT Mitch lius [facility] CPT-94951 Level 3 Est. Patient 09:37:15 CDT Mitch luis [facility] CPT-89621 Level 3 Est. Patient 17:01:00 CHEMICAL LABORATORY ASSISTANT Mitch luis [facility] CPT-39554 Level 3 Est. Patient 13:53:19 CHEMICAL LABORATORY ASSISTANT Mitch luis [facility] CPT-71815 Level 3 Est. Patient 19:19:37 CHEMICAL LABORATORY ASSISTANT Mitch luis [facility] CPT-53161 Level 3 Est. Patient 13:25:53 CHEMICAL LABORATORY ASSISTANT Tavo toure MD [facility] CPT-57413 Level 3 Est. Patient 18:17:28 CDT Mitch luis [facility] CPT-39931 Level 3 Est. Patient 15:22:57 CDT Mitch luis [facility] CPT-09521 Level 3 Est. Patient 18:21:50 CDT Mitch luis [facility] CPT-14405 Level 3 Est. Patient 18:20:38 CDT Mitch luis [facility] CPT-41790 Level 3 Est. Patient 15:37:55 CDT Mitch luis [facility] CPT-49083 Level 2 Est. Patient 15:54:44 CDT Carmine benton MD [facility]-79465 Level 3 Est. Patient 21:46:01 CHEMICAL LABORATORY ASSISTANT Mitch luis [facility] CPT-63964 Level 3 Est. Patient 22:15:50 CDT Mitch luis [facility] CPT-18335 Level 3 Est. Patient 10:48:15 CDT Mitch luis [facility] CPT-43584 Level 3 Est. Patient 23:20:57 CDT Tavo toure MD [facility] CPT-12498 Level 3 Est. Patient 16:26:13 CDT Mitch luis [facility] Procedures Code Procedure Name Date Entry Date Standard Desc ription CPT-57076 Venipuncture Draw Fee 18:00:48 CDT CPT-22377 Venipuncture Draw Fee 14:56:20 CDT CPT-JTINJ Asp/Joint Injection 18:47:02 CDT CPT-89628 Venipuncture Draw Fee 09:26:17 CDT CPT-93456 PT/INR - LAB USE ONLY 13:32:49 CHEMICAL LABORATORY ASSISTANT CPT-13412 Venipuncture Draw Fee 13:32:49 CHEMICAL LABORATORY ASSISTANT CPT-90944 PT/INR - LAB USE ONLY 10:34:49 CHEMICAL LABORATORY ASSISTANT CPT-95984 Venipuncture Draw Fee 10:34:48 CHEMICAL LABORATORY ASSISTANT CPT-38003 PT/INR - LAB USE ONLY 09:22:03 CHEMICAL LABORATORY ASSISTANT CPT-32700 Venipuncture Draw Fee 09:22:02 CHEMICAL LABORATORY ASSISTANT CPT-21919 Hemoccult IFOBT - LAB USE ONLY 10:27:22 CDT CPT-29687 Venipuncture Draw Fee 08:27:08 CDT CPT-55804 Liver Profile - LAB USE ONLY 08:27:07 CDT 2 CPT-76865 Microalbumin - LAB USE ONLY 08:27:07 CDT 20 25/05/09 CPT-67621 PT/INR - LAB USE ONLY 08:27:07 CDT CPT-39843 HGBA1C - LAB USE ONLY 08:27:07 CDT CPT-25293 CBC - LAB USE ONLY 08:27:07 CDT CPT-96212 Venipuncture Draw Fee 11:09:14 CDT CPT-39262 Venipuncture Draw Fee 08:32:21 CHEMICAL LABORATORY ASSISTANT CPT-05765 Venipuncture Draw Fee 09:38:56 CHEMICAL LABORATORY ASSISTANT CPT-13790 No Charge Offi Visit 21:36:07 CDT 1 CPT-50859 Venipuncture Draw Fee 10:13:28 CHEMICAL LABORATORY ASSISTANT CPT-21398 Venipuncture Draw Fee 08:31:11 CDT CPT-59882 Aspir/Inject Med Joint 18:17:28 CDT CPT-46149 Venipuncture Draw Fee 10:13:30 CDT CPT-43019 Venipuncture Draw Fee 08:31:43 CHEMICAL LABORATORY ASSISTANT CPT-JTINJ Joint Injection 18:34:50 CDT CPT-88943 Knee 3V 12:25:09 CDT CPT-22864 Venipuncture Draw Fee 12:15:57 CDT CPT-060 Medical Surveillance Exam 21:31:43 CDT 2011 CPT-06515 Venipuncture Draw Fee 08:32:05 CHEMICAL LABORATORY ASSISTANT CPT-OV Office Visit 18:19:06 CDT
--- OUTSIDE RECORDS SUMMARY | 2020-01-18 12:15 | XMS REPORT | Clinical Summary ---
Author Author Admin, Mitch Leon Organization [facility] Address Unknown Phone Unavailable Allergies, Adverse Reactions, [...] Coronary atherosclerosis of unspecified type of vessel, [place] or graft EDEMA 782.3 Resolved Mitch Urbina [...] for 1 week, then once daily FLUTICASONE MI OPIONATE 99105742755 Active Becky Sell RADIOLOGY SPECIALIST Active PREDNISONE 20 MG ORAL TABLET 2 tabs daily for 3 days 1 tab d aily for 3 days PREDNISONE 54258446257 No Longer Active Becky Sell RADIOLOGY SPECIALIST Active MINOXIDIL 2.5 MG ORAL TABLET 1 tablet twice daily for high b lood pressure MINOXIDIL 40872398696 Active Mitch Urbina DO Ac tive METFORMIN HCL ER 500 MG ORAL TABLET EXTENDED RELEASE 2 4 HOUR 2 tablets by mouth twice daily METFORMIN HCL 90769063435 Active Mitch Urbina DO Active GLIMEPIRIDE 4 MG ORAL TABLET 1 tablet by mouth twice daily f or diabetes GLIMEPIRIDE 77548166982 Active Mitch Urbina DO Active GLIMEPIRIDE 2 MG ORAL TABLET 1 po BID GLIMEPI RIDE 17168326614 No Longer Active Mitch Urbina DO Active AMLODIPINE BESYLATE 5 MG ORAL TABLET 1 tablet by mouth daily AMLODIPINE BESYLATE 94428358702 Active Mitch Urbina DO Active PROVIGIL 200 MG ORAL TABLET 1/2 tab po q day MODA FINIL 81240511920 Active Renee Oconnor LPN Active FAMOTIDINE 20 MG ORAL TABLET by mouth twice a day 2017 FAMOTIDINE 07520562914 No Longer Active Mitch Urbina DO Active COLCRYS 0.6 MG ORAL TABLET 1 tab qid prn gout C OLCHICINE 03878038652 No Longer Active Mitch Urbina DO Active KEFLEX 500 MG ORAL CAPSULE 1 po qid CEPHALEXI N 59299411528 No Longer Active Mitch Urbina DO Active LOSARTAN POTASSIUM 100 MG ORAL TABLET 1 pill by mouth daily, for blood pressure LOSARTAN POTASSIUM 08066685542 Active Mitch Arnol Carlitos VELASQUEZ Active AMLODIPINE BESYLATE 5 MG ORAL TABLET 1 tablet by mouth daily 201 01/20/04 AMLODIPINE BESYLATE 48118591822 No Longer Active Joe fulton APRN Active MITIGARE 0.6 MG ORAL CAPSULE 2 capsules at onset of go ut pain, then take one capsule at 1 hour if symptoms persist. COLCHICINE 59 247522799 Active Mitch Urbina DO Active COUMADIN 1 MG ORAL TABLET 2 tabs orally daily with the 5mg tab to equal 7mg daily WARFARIN SODIUM 02388598840 Active Renee Oconnor LPN Active INVOKANA 100 MG ORAL TABLET 1 tablet orally daily CANAGLIFLOZIN 54808548835 Active Mitch Urbina DO Active MECLIZINE HCL 25 MG ORAL TABLET 1 po tid 3 days, then 1/2 ta b tid 3 days MECLIZINE HCL 86427889906 No Longer Active Corey SEGURA Active ALLOPURINOL 300 MG ORAL TABLET Take 1 tablet by mouth daily 2012 ALLOPURINOL 25655432421 No Longer Active Corey SEGURA Active CLONIDINE HCL 0.1 MG ORAL TABLET 1 po bid 7 days, then 1/2 t ab po bid 7 days CLONIDINE HCL 63448740913 No Longer Active Corey SEGURA Active COUMADIN 5 MG ORAL TABLET 1 tab PO daily WARFAR IN SODIUM 61932249923 Active Renee Oconnor LPN Active COUMADIN 4 MG ORAL TABLET 1 tablet daily WARFAR IN SODIUM 86226815224 No Longer Active Corey SEGURA Active POLYTRIM 56192-8.1 UNIT/ML-% OPHTHALMIC SOLUTION 1 rui p in affected eye every 3 hours while awake x 7 days POLYMYXIN B-TRIMETHOP RIM 70936678342 No Longer Active Corey SEGURA Active LOSARTAN POTASSIUM-HCTZ 100-12.5 MG ORAL TABLET 1 by m outh daily for high blood pressure LOSARTAN POTASSIUM-HCTZ 84787294298 No Longer A ctive Mitch Urbina DO Active LISINOPRIL-HYDROCHLOROTHIAZIDE 20-12.5 MG ORAL TABLET 1 tab by m outh daily LISINOPRIL-HYDROCHLOROTHIAZIDE 77213686510 No Longer Active Mitch Urbina DO Active LISINOPRIL 20 MG ORAL TABLET 1 tab po at HS LIS INOPRIL 86576299280 No Longer Active Mitch Urbina DO Active COUMADIN 5 MG ORAL TABLET 1 by mouth every other day 2 WARFARIN SODIUM 10587486168 No Longer Active Mitch Urbina DO Active COUMADIN 6 MG ORAL TABLET 1 by mouth every other day 2 WARFARIN SODIUM 88368422989 No Longer Active Mitch Urbina DO Active SIMVASTATIN 40 MG ORAL TABLET 1 tab daily at bedtime SIMVASTATIN 37958072490 Active Maria Rivas RN Active SIMVASTATIN 20 MG ORAL TABLET 1 tab daily at bedtime 2 SIMVASTATIN 58196081141 No Longer Active Mitch Urbina DO Active LOVENOX 100 MG/ML SUBCUTANEOUS SOLUTION One injection twice a da y ENOXAPARIN SODIUM 23504961057 No Longer Active Carmine Yusuf MD Active JANUVIA 50 MG ORAL TABLET Take one by mouth daily SITAGLIPTIN PHOSPHATE 32649371653 Active Renee Oconnor LPN Active JANUVIA 100 MG ORAL TABLET 1/2 by mouth every day 2011 SITAGLIPTIN PHOSPHATE 01829817225 No Longer Active Bijal Segal RN Acti ve METFORMIN HCL 500 MG ORAL TABLET 2 by mouth twice daily METFORMIN HCL 23869577000 No Longer Active Renee Oconnor LPN Active COLCRYS 0.6 MG ORAL TABLET 1 po q 6 hours prn gout pain COLCHICINE 23867865893 No Longer Active Camila Reese Active LISINOPRIL 5 MG ORAL TABLET 1 by mouth every day 11/17 LISINOPRIL 91299099403 No Longer Active Nguyen Ana Active KLOR-CON 20 MEQ ORAL PACKET Take one by mouth daily 09/10/08 POTASSIUM CHLORIDE 19114447777 No Longer Active Nguyen Ana Active FUROSEMIDE 40 MG ORAL TABLET 1 by mouth daily F UROSEMIDE 47826124384 No Longer Active Nguyen Ana Active PROVIGIL 100 MG ORAL TABLET Take one by mouth daily 08/20/04 MODAFINIL 37016271260 No Longer Active Mitch Urbina DO Active BACTRIM DS 800-160 MG ORAL TABLET 1 tab by mouth twice daily 201 10/19/09 TRIMETHOPRIM-SULFAMETHOXAZOLE 67348023377 No Longer Active Elian Hays MD Active ADULT ASPIRIN LOW STRENGTH 81 MG ORAL TABLET DISINTEGR ATING 1 by mouth every daily ASPIRIN 12131081164 Active Mitch Urbina DO Ac tive METOPROLOL TARTRATE 50 MG ORAL TABLET 1 by mouth twice daily METOPROLOL TARTRATE 30610100537 Active Maria Rivas RN Ac tive BACTRIM DS 800-160 MG ORAL TABLET 1 tab by mouth twice daily 201 10/19/09 BACTRIM DS 800-160 MG ORAL TABLET 865366 TRIMETHOPRIM-SULFAMETHOXAZOLE Inactive PROVIGIL 100 MG ORAL TABLET Take one by mouth daily 08/20/04 PROVIGIL 100 MG ORAL TABLET 460827 MODAFINIL Inactive FUROSEMIDE 40 MG ORAL TABLET 1 by mouth daily FUROSEMIDE 40 MG ORAL TABLET 433220 FUROSEMIDE Inactive KLOR-CON 20 MEQ ORAL PACKET Take one by mouth daily 09/10/08 KLOR- CON 20 MEQ ORAL PACKET 9129640 POTASSIUM CHLORIDE Inactive LISINOPRIL 5 MG ORAL TABLET 1 by mouth every day 11/17 LISINOPRIL 5 MG ORAL TABLET 378711 LISINOPRIL Inactive COLCRYS 0.6 MG ORAL TABLET 1 po q 6 hours prn gout pain COLCRYS 0.6 MG ORAL TABLET 320930 COLCHICINE Inactive JANUVIA 100 MG ORAL TABLET 1/2 by mouth every day 2011 JANUVIA 100 MG ORAL TABLET SITAGLIPTIN PHOSPHATE Inactive SIMVASTATIN 20 MG ORAL TABLET 1 tab daily at bedtime 2 SIMVASTATIN 20 MG ORAL TABLET 258593 SIMVASTATIN Inactive COUMADIN 6 MG ORAL TABLET 1 by mouth every other day 2 COUMADIN 6 MG ORAL TABLET 902674 WARFARIN SODIUM Inactive COUMADIN 5 MG ORAL TABLET 1 by mouth every other day 2 COUMADIN 5 MG ORAL TABLET 977986 WARFARIN SODIUM Inactive LISINOPRIL 20 MG ORAL TABLET 1 tab po at HS LISINOPRIL 20 MG ORAL TABLET 845257 LISINOPRIL Inactive LISINOPRIL-HYDROCHLOROTHIAZIDE 20-12.5 MG ORAL TABLET 1 tab by m outh daily LISINOPRIL-HYDROCHLOROTHIAZIDE 20-12.5 MG ORAL TABLET 512089 LISINOPRIL-HYDROCHLOROTHIAZIDE Inactive POLYTRIM 74033-1.1 UNIT/ML-% OPHTHALMIC SOLUTION 1 rui p in affected eye every 3 hours while awake x 7 days POLYTRIM 1000 0-0.1 UNIT/ML-% OPHTHALMIC SOLUTION 559756 POLYMYXIN B-TRIMETHOPRIM Inactive COUMADIN 4 MG ORAL TABLET 1 tablet daily COUMADIN 4 MG ORAL TABLET 391674 WARFARIN SODIUM Inactive CLONIDINE HCL 0.1 MG ORAL TABLET 1 po bid 7 days, then 1/2 t ab po bid 7 days CLONIDINE HCL 0.1 MG ORAL TABLET 512206 CLONIDIN E HCL Inactive ALLOPURINOL 300 MG ORAL TABLET Take 1 tablet by mouth daily 2012 ALLOPURINOL 300 MG ORAL TABLET 770007 ALLOPURINOL I nactive MECLIZINE HCL 25 MG ORAL TABLET 1 po tid 3 days, then 1/2 ta b tid 3 days MECLIZINE HCL 25 MG ORAL TABLET 577204 MECLIZINE HCL Inactive AMLODIPINE BESYLATE 5 MG ORAL TABLET 1 tablet by mouth daily 201 01/20/04 AMLODIPINE BESYLATE 5 MG ORAL TABLET 633257 AMLODIPINE BESYLATE Inactive KEFLEX 500 MG ORAL CAPSULE 1 po qid K EFLEX 500 MG ORAL CAPSULE 499044 CEPHALEXIN Inactive COLCRYS 0.6 MG ORAL TABLET 1 tab qid prn gout COLCRYS 0.6 MG ORAL TABLET 782548 COLCHICINE Inactive FAMOTIDINE 20 MG ORAL TABLET by mouth twice a day 2017 FAMOTIDINE 20 MG ORAL TABLET 189408 FAMOTIDINE Inactive GLIMEPIRIDE 2 MG ORAL TABLET 1 po BID GLIMEPIRIDE 2 MG ORAL TABLET 153317 GLIMEPIRIDE Inactive LOVENOX 100 MG/ML SUBCUTANEOUS SOLUTION One injection twice a da y LOVENOX 100 MG/ML SUBCUTANEOUS SOLUTION 215220 ENOXAPAR IN SODIUM Inactive PREDNISONE 20 MG ORAL TABLET 2 tabs daily for 3 days 1 tab d aily for 3 days PREDNISONE 20 MG ORAL TABLET 598302 PREDNISONE Inactive Advance Directives Directive Description Start [...] mg/dL Encounters Code Encounter Date Provider Facility CPT-24490 Level 3 Est. Patient 15:18:36 CDT Becky anderson [facility] CPT-60347 31589-Uug Vst-Est Level IV 10:06:35 CDT Stephy Ambrose [facility] CPT-44866 20765-Jxy Vst-Est Level IV 10:52:00 REED MAN Stephy Ambrose [facility] CPT-66118 Level 3 Est. Patient 18:25:53 CDT Mitch luis [facility] CPT-76436 Level 3 Est. Patient 19:43:34 CDT Mitch luis [facility] CPT-35189 Level 4 Est. Patient 09:30:18 CDT Mitch luis [facility] CPT-52268 Level 3 Est. Patient 15:10:14 CDT Joe kamara [facility] CPT-41192 Level 3 Est. Patient 15:03:46 CDT Joe kamara [facility] CPT-72035 Level 3 Est. Patient 14:21:06 CDT Mitch luis [facility] CPT-90476 Level 3 Est. Patient 14:52:06 CDT Joe kamara [facility] CPT-17778 Level 3 Est. Patient 09:34:30 REED MAN Mitch luis [facility] CPT-07417 Level 3 Est. Patient 09:37:15 CDT Mitch luis [facility] CPT-48286 Level 3 Est. Patient 17:01:00 REED MAN Mitch luis [facility] CPT-07180 Level 3 Est. Patient 13:53:19 REED MAN Mitch luis [facility] CPT-62320 Level 3 Est. Patient 19:19:37 REED MAN Mitch luis [facility] CPT-93995 Level 3 Est. Patient 13:25:53 REED MAN Tavo toure MD [facility] CPT-27821 Level 3 Est. Patient 18:17:28 CDT Mitch luis [facility] CPT-28381 Level 3 Est. Patient 15:22:57 CDT Mitch luis [facility] CPT-94041 Level 3 Est. Patient 18:21:50 CDT Mitch luis [facility] CPT-11889 Level 3 Est. Patient 18:20:38 CDT Mitch luis [facility] CPT-46051 Level 3 Est. Patient 15:37:55 CDT Mitch luis [facility] CPT-84264 Level 2 Est. Patient 15:54:44 CDT Carmine benton MD [facility]-87915 Level 3 Est. Patient 21:46:01 REED MAN Mitch luis [facility] CPT-17744 Level 3 Est. Patient 22:15:50 CDT Mitch luis [facility] CPT-85050 Level 3 Est. Patient 10:48:15 CDT Mitch luis [facility] CPT-14380 Level 3 Est. Patient 23:20:57 CDT Tavo toure MD [facility] CPT-16564 Level 3 Est. Patient 16:26:13 CDT Mitch luis [facility] Procedures Code Procedure Name Date Entry Date Standard Desc ription CPT-82418 Venipuncture Draw Fee 18:00:48 CDT CPT-80810 Venipuncture Draw Fee 14:56:20 CDT CPT-JTINJ Asp/Joint Injection 18:47:02 CDT CPT-71663 Venipuncture Draw Fee 09:26:17 CDT CPT-22106 PT/INR - LAB USE ONLY 13:32:49 REED MAN CPT-69851 Venipuncture Draw Fee 13:32:49 REED MAN CPT-86245 PT/INR - LAB USE ONLY 10:34:49 REED MAN CPT-35406 Venipuncture Draw Fee 10:34:48 REED MAN CPT-49005 PT/INR - LAB USE ONLY 09:22:03 REED MAN CPT-73142 Venipuncture Draw Fee 09:22:02 REED MAN CPT-34743 Hemoccult IFOBT - LAB USE ONLY 10:27:22 CDT CPT-99632 Venipuncture Draw Fee 08:27:08 CDT CPT-85103 Liver Profile - LAB USE ONLY 08:27:07 CDT 2 CPT-98151 Microalbumin - LAB USE ONLY 08:27:07 CDT 20 25/05/09 CPT-56538 PT/INR - LAB USE ONLY 08:27:07 CDT CPT-14465 HGBA1C - LAB USE ONLY 08:27:07 CDT CPT-42424 CBC - LAB USE ONLY 08:27:07 CDT CPT-18961 Venipuncture Draw Fee 11:09:14 CDT CPT-24335 Venipuncture Draw Fee 08:32:21 REED MAN CPT-23891 Venipuncture Draw Fee 09:38:56 REED MAN CPT-67851 No Charge Offi Visit 21:36:07 CDT 1 CPT-55789 Venipuncture Draw Fee 10:13:28 REED MAN CPT-68265 Venipuncture Draw Fee 08:31:11 CDT CPT-60350 Aspir/Inject Med Joint 18:17:28 CDT CPT-33329 Venipuncture Draw Fee 10:13:30 CDT CPT-96696 Venipuncture Draw Fee 08:31:43 REED MAN CPT-JTINJ Joint Injection 18:34:50 CDT CPT-35788 Knee 3V 12:25:09 CDT CPT-99178 Venipuncture Draw Fee 12:15:57 CDT CPT-060 Medical Surveillance Exam 21:31:43 CDT 2011 CPT-35311 Venipuncture Draw Fee 08:32:05 REED MAN CPT-OV Office Visit 18:19:06 CDT
--- OUTSIDE RECORDS SUMMARY | 2020-01-18 12:15 | XMS REPORT | Clinical Summary ---
Author Author Admin, Mitch Leon Organization [facility] Address Unknown Phone Unavailable Allergies, [...] Coronary atherosclerosis of unspecified type of vessel, [place] or graft EDEMA 782.3 Resolved Mitch [...] 1 tablet by mouth daily AMLODIPINE BESYLATE 12254712885 No Longer Active Joe Williamson APRN Active MITIGARE 0.6 MG ORAL CAPS 2 capsules at onset of gout pain, then take one capsule at 1 hour if symptoms persist. COLCHICINE 59 784005773 Active Mitch Urbina DO Active COUMADIN 1 MG TAB 2 tabs orally daily with the 5mg tab to equal 7mg daily WARFARIN SODIUM 54023811238 Active Mitch Urbina DO Active COLCRYS 0.6 MG TABS 1 tab qid prn gout COLCHICINE 71186738647 Active Norma Cazares Active INVOKANA 100 MG ORAL TABS 1 tablet orally daily CANAGLIFLOZIN 85410907507 Active Brenda Shen Active MINOXIDIL 2.5 MG TABS 1 tablet daily for high blood pressure 10/23 MINOXIDIL 12155238607 Active Ana Wallace Active MECLIZINE HCL 25 MG TAB 1 po tid 3 days, then 1/2 tab tid 3 days MECLIZINE HCL 90975172371 No Longer Active Corey SEGURA Active ALLOPURINOL 300 MG TABS Take 1 tablet by mouth daily 2 ALLOPURINOL 45801253051 No Longer Active Corey SEGURA Activ e CLONIDINE HCL 0.1 MG TABS 1 po bid 7 days, then 1/2 tab po b id 7 days CLONIDINE HCL 08496937626 No Longer Active Corey SEGURA Active COUMADIN 5 MG TABS 1 tab PO daily WARFARIN SODIUM 94788004025 Active Mitch Urbina DO Active COUMADIN 4 MG TABS 1 tablet daily WARFARIN SODI UM 39059663884 No Longer Active Corey SEGURA Active POLYTRIM 28272-9.1 UNIT/ML-% SOLN 1 drop in affected e ye every 3 hours while awake x 7 days POLYMYXIN B-TRIMETHOPRIM 82771076031 N o Longer Active Corey SEGURA Active LOSARTAN POTASSIUM-HCTZ 100-12.5 MG TABS 1 by mouth da rocky for high blood pressure LOSARTAN POTASSIUM-HCTZ 88063093547 Active Stephy Urbina DO Active LISINOPRIL-HYDROCHLOROTHIAZIDE 20-12.5 MG TABS 1 tab by mouth da rocky LISINOPRIL-HYDROCHLOROTHIAZIDE 54672205727 No Longer Active Mitch luis DO Active LISINOPRIL 20 MG TABS 1 tab po at HS LISINOPRIL 79950395951 No Longer Active Mitch Urbina DO Active COUMADIN 5 MG TABS 1 by mouth every other day WARFARIN SODIUM 85477229083 No Longer Active Mitch Urbina DO Active COUMADIN 6 MG TABS 1 by mouth every other day WARFARIN SODIUM 65074635522 No Longer Active Mitch Urbina DO Active SIMVASTATIN 40 MG TABS 1 tab daily at bedtime S IMVASTATIN 11392309944 Active Mitch Urbina DO Active SIMVASTATIN 20 MG TABS 1 tab daily at bedtime S IMVASTATIN 03520845514 No Longer Active Mitch Urbina DO Active LOVENOX 100 MG/ML SC SOLN One injection twice a day 09/15/15 ENOXAPARIN SODIUM 40616429565 No Longer Active Carmine Navarrete ctive JANUVIA 50 MG TABS Take one by mouth daily DIEGO GLIPTIN PHOSPHATE 47754132071 Active Mitch Urbina DO Active JANUVIA 100 MG TABS 1/2 by mouth every day DIEGO GLIPTIN PHOSPHATE 63959730751 No Longer Active Bijal Segal RN Active METFORMIN HCL 500 MG TABS 2 by mouth twice daily METFORMIN HCL 04384090581 Active Mitch Ubrina DO Active GLIMEPIRIDE 4 MG TABS 1 tab po bid GLIMEPIRIDE 313108 12871 Active Mitch Urbina DO Active COLCRYS 0.6 MG TABS 1 po q 6 hours prn gout pain 03/02 COLCHICINE 54780236270 No Longer Active Camila Reese Active LISINOPRIL 5 MG TABS 1 by mouth every day LISIN OPRIL 24899532667 No Longer Active Nguyen Perez Active KLOR-CON 20 MEQ PACK Take one by mouth daily 8 POTASSIUM CHLORIDE 72249229409 No Longer Active Nguyen Perez Active FUROSEMIDE 40 MG TABS 1 by mouth daily FUROSEMI DE 56262805408 No Longer Active Nguyen Perez Active PROVIGIL 200 MG TABS 1/2 tab po q day MODAFINIL 22741 291112 Active Kathie Juan RPT,RMA Active PROVIGIL 100 MG TABS Take one by mouth daily MO DAFINIL 65958705111 No Longer Active Mitch Urbina DO Active BACTRIM DS 800-160 MG TAB 1 tab by mouth twice daily 2 TRIMETHOPRIM-SULFAMETHOXAZOLE 75161541847 No Longer Active Renan Hays MD Active FAMOTIDINE 20 MG TABS by mouth twice a day FAMOTI DINE 77491292196 Active Mitch Urbina DO Active ADULT ASPIRIN LOW STRENGTH 81 MG TBDP 1 by mouth every daily ASPIRIN 48436884678 Active Mitch Urbina DO Active METOPROLOL TARTRATE 50 MG TABS 1 by mouth twice daily METOPROLOL TARTRATE 88430724093 Active Mitch Urbina DO Active BACTRIM DS 800-160 MG TAB 1 tab by mouth twice daily 2 BACTRIM DS 800-160 MG TAB 247131 TRIMETHOPRIM-SULFAMETHOXAZOLE Inac tive PROVIGIL 100 MG TABS Take one by mouth daily 4 PROVIGIL 100 MG TABS 685175 MODAFINIL Inactive FUROSEMIDE 40 MG TABS 1 by mouth daily FU ROSEMIDE 40 MG TABS 900620 FUROSEMIDE Inactive KLOR-CON 20 MEQ PACK Take one by mouth daily 8 KLOR-CON 20 MEQ PACK 357421 POTASSIUM CHLORIDE Inactive LISINOPRIL 5 MG TABS 1 by mouth every day LISINOPRIL 5 MG TABS 956417 LISINOPRIL Inactive COLCRYS 0.6 MG TABS 1 po q 6 hours prn gout pain 03/02 COLCRYS 0.6 MG TABS 286846 COLCHICINE Inactive JANUVIA 100 MG TABS 1/2 by mouth every day JANUVI A 100 MG TABS SITAGLIPTIN PHOSPHATE Inactive SIMVASTATIN 20 MG TABS 1 tab daily at bedtime SIMVASTATIN 20 MG TABS 487004 SIMVASTATIN Inactive COUMADIN 6 MG TABS 1 by mouth every other day COUMADIN 6 MG TABS 447282 WARFARIN SODIUM Inactive COUMADIN 5 MG TABS 1 by mouth every other day COUMADIN 5 MG TABS 188107 WARFARIN SODIUM Inactive LISINOPRIL 20 MG TABS 1 tab po at HS KOKI NOPRIL 20 MG TABS 110084 LISINOPRIL Inactive LISINOPRIL-HYDROCHLOROTHIAZIDE 20-12.5 MG TABS 1 tab by mouth da rocky LISINOPRIL-HYDROCHLOROTHIAZIDE 20-12.5 MG TABS 153689 LISINOPRIL-HYDROCHLOROTHIAZIDE Inactive POLYTRIM 42642-5.1 UNIT/ML-% SOLN 1 drop in affected e ye every 3 hours while awake x 7 days POLYTRIM 12568-2.1 UNIT/ML-% SOLN 30201 7 POLYMYXIN B-TRIMETHOPRIM Inactive COUMADIN 4 MG TABS 1 tablet daily COUMADIN 4 MG TABS 787438 WARFARIN SODIUM Inactive CLONIDINE HCL 0.1 MG TABS 1 po bid 7 days, then 1/2 tab po b id 7 days CLONIDINE HCL 0.1 MG TABS 621611 CLONIDINE HCL I nactive ALLOPURINOL 300 MG TABS Take 1 tablet by mouth daily 2 ALLOPURINOL 300 MG TABS 298012 ALLOPURINOL Inactive MECLIZINE HCL 25 MG TAB 1 po tid 3 days, then 1/2 tab tid 3 days MECLIZINE HCL 25 MG TAB 090968 MECLIZINE HCL Inactive AMLODIPINE BESYLATE 5 MG TABS 1 tablet by mouth daily AMLODIPINE BESYLATE 5 MG TABS 090599 AMLODIPINE BESYLATE Inactive LOVENOX 100 MG/ML SC SOLN One injection twice a day 09/15/15 LOVENOX 100 MG/ML SC SOLN 776786 ENOXAPARIN SODIUM Inactive Vital Signs Date Name [...] Range Description Chart Maintenance: hemoccult added to [facility] - Chemistry occult blood, stool (E&M) Positive Lab Report: HGBA1C - Chemistry hemoglobin A1C, blood, as % of total hemoglobin 6.6 % 4.3-6.0 Lab Report: Lipid Panel, HEPATIC PANEL, MICROALB/CREAT W/RATIO, HGBA1C, CBC - Chemistry cholesterol, serum 136 mg/dL 068-476 7126/08/09 triglyceride, serum, fasting 187 mg/dL 30-200 HDL [...] 1.0-3.5 Encounters Code Encounter Date Provider Facility CPT-93025 Level 3 Est. Patient 15:10:14 CDT Joe kamara [facility] CPT-19752 Level 3 Est. Patient 15:03:46 CDT Joe kamara [facility] CPT-28964 Level 3 Est. Patient 14:21:06 CDT Mitch luis [facility] CPT-99706 Level 3 Est. Patient 14:52:06 CDT Joe kamara [facility] CPT-81629 Level 3 Est. Patient 09:34:30 ELECTRICAL ENGINEERING DIRECTOR Mitch luis [facility] CPT-85817 Level 3 Est. Patient 09:37:15 CDT Mitch luis [facility] CPT-18136 Level 3 Est. Patient 17:01:00 ELECTRICAL ENGINEERING DIRECTOR Mitch luis [facility] CPT-34058 Level 3 Est. Patient 13:53:19 ELECTRICAL ENGINEERING DIRECTOR Mitch luis [facility] CPT-00134 Level 3 Est. Patient 19:19:37 ELECTRICAL ENGINEERING DIRECTOR Mitch luis [facility] CPT-85716 Level 3 Est. Patient 13:25:53 ELECTRICAL ENGINEERING DIRECTOR Tavo toure MD [facility] CPT-56088 Level 3 Est. Patient 18:17:28 CDT Mitch Arnol L janelle [facility] CPT-23022 Level 3 Est. Patient 15:22:57 CDT Mitch W L janelle [facility] CPT-75448 Level 3 Est. Patient 18:21:50 CDT Mitch W L janelle [facility] CPT-38938 Level 3 Est. Patient 18:20:38 CDT Mitch W L janelle [facility] CPT-72217 Level 3 Est. Patient 15:37:55 CDT Mitch Arnol Nona janelle [facility] CPT-08995 Level 2 Est. Patient 15:54:44 CDT Carmine benton MD [facility] CPT-18369 Level 3 Est. Patient 21:46:01 ELECTRICAL ENGINEERING DIRECTOR Mitch luis [facility] CPT-51832 Level 3 Est. Patient 22:15:50 CDT Mitch Arnol luis [facility] CPT-20715 Level 3 Est. Patient 10:48:15 CDT Mitch luis [facility] CPT-03586 Level 3 Est. Patient 23:20:57 CDT Tavo toure MD [facility] CPT-40913 Level 3 Est. Patient 16:26:13 CDT Mitch luis [facility] Procedures Code Procedure Name Date Entry Date Standard Desc ription CPT-08357 PT/INR - LAB USE ONLY 13:32:49 ELECTRICAL ENGINEERING DIRECTOR CPT-33768 Venipuncture Draw Fee 13:32:49 ELECTRICAL ENGINEERING DIRECTOR CPT-08707 PT/INR - LAB USE ONLY 10:34:49 ELECTRICAL ENGINEERING DIRECTOR CPT-91981 Venipuncture Draw Fee 10:34:48 ELECTRICAL ENGINEERING DIRECTOR CPT-42937 PT/INR - LAB USE ONLY 09:22:03 ELECTRICAL ENGINEERING DIRECTOR CPT-92956 Venipuncture Draw Fee 09:22:02 ELECTRICAL ENGINEERING DIRECTOR CPT-43248 Hemoccult IFOBT - LAB USE ONLY 10:27:22 CDT CPT-52791 Venipuncture Draw Fee 08:27:08 CDT CPT-29429 Liver Profile - LAB USE ONLY 08:27:07 CDT 2 CPT-92781 Microalbumin - LAB USE ONLY 08:27:07 CDT 20 25/05/09 CPT-00246 PT/INR - LAB USE ONLY 08:27:07 CDT CPT-41715 HGBA1C - LAB USE ONLY 08:27:07 CDT CPT-62396 CBC - LAB USE ONLY 08:27:07 CDT CPT-00209 Venipuncture Draw Fee 11:09:14 CDT CPT-49457 Venipuncture Draw Fee 08:32:21 ELECTRICAL ENGINEERING DIRECTOR CPT-99786 Venipuncture Draw Fee 09:38:56 ELECTRICAL ENGINEERING DIRECTOR CPT-44295 No Charge Offi Visit 21:36:07 CDT 1 CPT-72054 Venipuncture Draw Fee 10:13:28 ELECTRICAL ENGINEERING DIRECTOR CPT-72709 Venipuncture Draw Fee 08:31:11 CDT CPT-55712 Aspir/Inject Med Joint 18:17:28 CDT CPT-36824 Venipuncture Draw Fee 10:13:30 CDT CPT-20750 Venipuncture Draw Fee 08:31:43 ELECTRICAL ENGINEERING DIRECTOR CPT-JTINJ Joint Injection 18:34:50 CDT CPT-13446 Knee 3V 12:25:09 CDT CPT-09195 Venipuncture Draw Fee 12:15:57 CDT CPT-060 Medical Surveillance Exam 21:31:43 CDT 2011 CPT-44692 Venipuncture Draw Fee 08:32:05 ELECTRICAL ENGINEERING DIRECTOR CPT-OV Office Visit 18:19:06 CDT
--- OUTSIDE RECORDS SUMMARY | 2020-01-18 12:16 | XMS REPORT | Clinical Summary ---
Author Author Admin, Mitch Leon Organization [facility] Address Unknown Phone Unavailable Allergies, Adverse [...] ( 6mg total ) 2015 WARFARIN SODIUM 75776692113 Active Jannette Alcides RMA Act juan INVOKANA 100 MG ORAL TABS 1 tablet orally daily CANAGLIFLOZIN 62924279565 Active Kathie Juan RPT,RMA Active MINOXIDIL 2.5 MG TABS 1 tablet daily for high blood pressure 10/23 MINOXIDIL 04138551044 Active Mitch Urbina DO Active AMLODIPINE BESYLATE 5 MG TABS 1 tablet by mouth daily AMLODIPINE BESYLATE 49269071022 Active Domi Rivera MA Active MECLIZINE HCL 25 MG TAB 1 po tid 3 days, then 1/2 tab tid 3 days MECLIZINE HCL 70410429956 No Longer Active Corey SEGURA Active ALLOPURINOL 300 MG TABS Take 1 tablet by mouth daily 2 ALLOPURINOL 42722630686 No Longer Active Corey SEGURA Activ e CLONIDINE HCL 0.1 MG TABS 1 po bid 7 days, then 1/2 tab po b id 7 days CLONIDINE HCL 45732139889 No Longer Active Corey SEGURA Active COUMADIN 5 MG TABS 1 tab PO daily WARFARIN SODIUM 12249026535 Active Domi Rivera MA Active COUMADIN 4 MG TABS 1 tablet daily WARFARIN SODI UM 37069827443 No Longer Active Corey SEGURA Active POLYTRIM 16733-5.1 UNIT/ML-% SOLN 1 drop in affected e ye every 3 hours while awake x 7 days POLYMYXIN B-TRIMETHOPRIM 26249970516 N o Longer Active Corey SEGURA Active LOSARTAN POTASSIUM-HCTZ 100-12.5 MG TABS 1 by mouth da rocky for high blood pressure LOSARTAN POTASSIUM-HCTZ 50492628773 Active Domi Rivera MA Active LISINOPRIL-HYDROCHLOROTHIAZIDE 20-12.5 MG TABS 1 tab by mouth da rocky LISINOPRIL-HYDROCHLOROTHIAZIDE 49157181830 No Longer Active Mitch luis DO Active LISINOPRIL 20 MG TABS 1 tab po at HS LISINOPRIL 65777602908 No Longer Active Mitch Urbina DO Active COUMADIN 5 MG TABS 1 by mouth every other day WARFARIN SODIUM 32244787406 No Longer Active Mitch Urbina DO Active COUMADIN 6 MG TABS 1 by mouth every other day WARFARIN SODIUM 35106984344 No Longer Active Mitch Urbina DO Active COLCRYS 0.6 MG TABS 1 tab qid prn gout COLCHICINE 34444503925 Active Corey SEUGRA Active SIMVASTATIN 40 MG TABS 1 tab daily at bedtime S IMVASTATIN 19810482568 Active Domi Rivera MA Active SIMVASTATIN 20 MG TABS 1 tab daily at bedtime S IMVASTATIN 33466824192 No Longer Active Mitch Urbina DO Active LOVENOX 100 MG/ML SC SOLN One injection twice a day 09/15/15 ENOXAPARIN SODIUM 46542488718 No Longer Active Carmine Navarrete ctive JANUVIA 50 MG TABS Take one by mouth daily DIEGO GLIPTIN PHOSPHATE 62021692939 Active Domi Rivera MA Active JANUVIA 100 MG TABS 1/2 by mouth every day DIEGO GLIPTIN PHOSPHATE 78120225398 No Longer Active Bijal Segal RN Active METFORMIN HCL 500 MG TABS 2 by mouth twice daily METFORMIN HCL 23667861258 Active Domi Rivera MA Active GLIMEPIRIDE 4 MG TABS 1 tab po bid GLIMEPIRIDE 903661 61705 Active Domi Rivera MA Active COLCRYS 0.6 MG TABS 1 po q 6 hours prn gout pain 03/02 COLCHICINE 42463545401 No Longer Active Camila Reese Active LISINOPRIL 5 MG TABS 1 by mouth every day LISIN OPRIL 60279464497 No Longer Active Nguyen Perez Active KLOR-CON 20 MEQ PACK Take one by mouth daily 8 POTASSIUM CHLORIDE 78789035948 No Longer Active Nguyen Perez Active FUROSEMIDE 40 MG TABS 1 by mouth daily FUROSEMI DE 62287665034 No Longer Active Nguyenmolly Perez Active PROVIGIL 200 MG TABS 1/2 tab po q day MODAFINIL 28051 008110 Active Domi Rivera MA Active PROVIGIL 100 MG TABS Take one by mouth daily MO DAFINIL 03477016342 No Longer Active Mitch Urbina DO Active BACTRIM DS 800-160 MG TAB 1 tab by mouth twice daily 2 TRIMETHOPRIM-SULFAMETHOXAZOLE 24801377102 No Longer Active Renan Hays MD Active FAMOTIDINE 20 MG TABS by mouth twice a day FAMOTI DINE 41861505547 Active Mitch Urbina DO Active ADULT ASPIRIN LOW STRENGTH 81 MG TBDP 1 by mouth every daily ASPIRIN 25484264011 Active Mitch Urbina DO Active METOPROLOL TARTRATE 50 MG TABS 1 by mouth twice daily METOPROLOL TARTRATE 70560146419 Active Domi Rivera MA Active BACTRIM DS 800-160 MG TAB 1 tab by mouth twice daily 2 BACTRIM DS 800-160 MG TAB 371189 TRIMETHOPRIM-SULFAMETHOXAZOLE Inac tive PROVIGIL 100 MG TABS Take one by mouth daily 4 PROVIGIL 100 MG TABS 749459 MODAFINIL Inactive FUROSEMIDE 40 MG TABS 1 by mouth daily FU ROSEMIDE 40 MG TABS 850231 FUROSEMIDE Inactive KLOR-CON 20 MEQ PACK Take one by mouth daily 8 KLOR-CON 20 MEQ PACK 040398 POTASSIUM CHLORIDE Inactive LISINOPRIL 5 MG TABS 1 by mouth every day LISINOPRIL 5 MG TABS 485428 LISINOPRIL Inactive COLCRYS 0.6 MG TABS 1 po q 6 hours prn gout pain 03/02 COLCRYS 0.6 MG TABS 081830 COLCHICINE Inactive JANUVIA 100 MG TABS 1/2 by mouth every day JANUVI A 100 MG TABS SITAGLIPTIN PHOSPHATE Inactive SIMVASTATIN 20 MG TABS 1 tab daily at bedtime SIMVASTATIN 20 MG TABS 412066 SIMVASTATIN Inactive COUMADIN 6 MG TABS 1 by mouth every other day COUMADIN 6 MG TABS 741406 WARFARIN SODIUM Inactive COUMADIN 5 MG TABS 1 by mouth every other day COUMADIN 5 MG TABS 440199 WARFARIN SODIUM Inactive LISINOPRIL 20 MG TABS 1 tab po at HS KOKI NOPRIL 20 MG TABS 481596 LISINOPRIL Inactive LISINOPRIL-HYDROCHLOROTHIAZIDE 20-12.5 MG TABS 1 tab by mouth da rocky LISINOPRIL-HYDROCHLOROTHIAZIDE 20-12.5 MG TABS 822572 LISINOPRIL-HYDROCHLOROTHIAZIDE Inactive POLYTRIM 37148-6.1 UNIT/ML-% SOLN 1 drop in affected e ye every 3 hours while awake x 7 days POLYTRIM 94316-7.1 UNIT/ML-% SOLN 14279 7 POLYMYXIN B-TRIMETHOPRIM Inactive COUMADIN 4 MG TABS 1 tablet daily COUMADIN 4 MG TABS 664156 WARFARIN SODIUM Inactive CLONIDINE HCL 0.1 MG TABS 1 po bid 7 days, then 1/2 tab po b id 7 days CLONIDINE HCL 0.1 MG TABS 881337 CLONIDINE HCL I nactive ALLOPURINOL 300 MG TABS Take 1 tablet by mouth daily 2 ALLOPURINOL 300 MG TABS 698459 ALLOPURINOL Inactive MECLIZINE HCL 25 MG TAB 1 po tid 3 days, then 1/2 tab tid 3 days MECLIZINE HCL 25 MG TAB 833807 MECLIZINE HCL Inactive LOVENOX 100 MG/ML SC SOLN One injection twice a day 20 09/15/15 LOVENOX 100 MG/ML SC SOLN 897891 ENOXAPARIN SODIUM Inactive Vital Signs Date Name [...] Range Description Chart Maintenance: Hemoccult added to [facility] - Chemistry occult blood, stool (E&M) [...] Ag - Chemistry sodium, serum 141 mmol/L 700-601 0578/07/06 potassium, serum 4.4 mmol/L 3.5-5.2 chloride, serum [...] - Chem istry sodium, serum 136 mmol/L 505-795 5939/01/14 carbon dioxide, venous blood 25.4 mmol/L 21.0-32 [...] 7.0 % 4.3-6.0 cholesterol, serum 120 mg/dL 338-371 7249/07/06 triglyceride, serum, fasting 186 mg/dL 30-200 HDL [...] ratio (INR) 2.4 1.0-3.5 prothrombin time (patient) 20.1 SECS s 11.1-13.4 international normalized ratio (INR) 2.6 1.0-3.5 prothrombin time (patient) 14.5 SECS s 11.1-13.4 international normalized ratio (INR) 1.5 1.0-3.5 international normalized ratio (INR) 2.0 1.0-3.5 prothrombin time (patient) 17.1 SECS s 11.1-13.4 prothrombin time (patient) 18.1 SECS s 11.1-13.4 international normalized ratio (INR) 2.2 1.0-3.5 prothrombin time (patient) 18.6 SECS s 11.1-13.4 international normalized ratio (INR) 2.3 1.0-3.5 Encounters Code Encounter Date Provider Facility CPT-83979 Level 3 Est. Patient 09:34:30 TECHNOLOGY OFFICER Mitch luis [facility] CPT-65858 Level 3 Est. Patient 09:37:15 CDT Mitch luis [facility] CPT-02397 Level 3 Est. Patient 17:01:00 TECHNOLOGY OFFICER Mitch luis [facility] CPT-41961 Level 3 Est. Patient 13:53:19 TECHNOLOGY OFFICER Mitch luis [facility] CPT-64783 Level 3 Est. Patient 19:19:37 TECHNOLOGY OFFICER Mitch luis [facility] CPT-14570 Level 3 Est. Patient 13:25:53 TECHNOLOGY OFFICER Tavo toure MD [facility] CPT-22397 Level 3 Est. Patient 18:17:28 CDT Mitch luis [facility] CPT-82518 Level 3 Est. Patient 15:22:57 CDT Mitch luis [facility] CPT-13689 Level 3 Est. Patient 18:21:50 CDT Mitch luis [facility] CPT-25013 Level 3 Est. Patient 18:20:38 CDT Mitch luis [facility] CPT-38997 Level 3 Est. Patient 15:37:55 CDT Mitch luis [facility] CPT-09034 Level 2 Est. Patient 15:54:44 CDT Carmine benton MD [facility]-81689 Level 3 Est. Patient 21:46:01 TECHNOLOGY OFFICER Mitch luis [facility] CPT-56238 Level 3 Est. Patient 22:15:50 CDT Mitch Arnol L janelle [facility] CPT-22749 Level 3 Est. Patient 10:48:15 CDT Mitch luis [facility] CPT-54740 Level 3 Est. Patient 23:20:57 CDT Tavo toure MD [facility] CPT-93088 Level 3 Est. Patient 16:26:13 CDT Mitch luis [facility] Procedures Code Procedure Name Date Entry Date Standard Desc ription CPT-73291 Venipuncture Draw Fee 08:32:21 TECHNOLOGY OFFICER CPT-98607 Venipuncture Draw Fee 09:38:56 TECHNOLOGY OFFICER CPT-77764 No Charge Offi Visit 21:36:07 CDT 1 CPT-44071 Venipuncture Draw Fee 10:13:28 TECHNOLOGY OFFICER CPT-07646 Venipuncture Draw Fee 08:31:11 CDT CPT-54176 Aspir/Inject Med Joint 18:17:28 CDT CPT-86771 Venipuncture Draw Fee 10:13:30 CDT CPT-33413 Venipuncture Draw Fee 08:31:43 TECHNOLOGY OFFICER CPT-JTINJ Joint Injection 18:34:50 CDT CPT-74204 Knee 3V 12:25:09 CDT CPT-00997 Venipuncture Draw Fee 12:15:57 CDT CPT-060 Medical Surveillance Exam 21:31:43 CDT 2011 CPT-71447 Venipuncture Draw Fee 08:32:05 TECHNOLOGY OFFICER CPT-OV Office Visit 18:19:06 CDT
--- OUTSIDE RECORDS SUMMARY | 2020-01-18 12:16 | XMS REPORT | Clinical Summary ---
Author Author Admin, Mitch Leon Organization [facility] Address Unknown Phone Unavailable Allergies, Adverse [...] abscess of trunk SEROMA 998.13 Resolved Mitch rUbina DO Se mario complicating a procedure HYPERLIPIDEMIA [...] Coronary atherosclerosis of unspecified type of vessel, pitka's point or graft EDEMA 782.3 Resolved Mitch Urbina [...] MG ORAL TABS 1 po BID GLIMEPIRIDE 83164 623841 Active Ana Wallace Active KEFLEX 500 MG CAP 1 po qid CEPHALEXIN 847837526 20 No Longer Active Mitch Urbina DO Active LOSARTAN POTASSIUM 100 MG TABS 1 pill by mouth daily, for bl ood pressure LOSARTAN POTASSIUM 17814265277 Active Ana Wallace Active AMLODIPINE BESYLATE 5 MG TABS 1 tablet by mouth daily AMLODIPINE BESYLATE 90776824470 No Longer Active Joe Williamson APRN Active MITIGARE 0.6 MG ORAL CAPS 2 capsules at onset of gout pain, then take one capsule at 1 hour if symptoms persist. COLCHICINE 59 193295289 Active Mitch Urbina DO Active COUMADIN 1 MG TAB 2 tabs orally daily with the 5mg tab to equal 7mg daily WARFARIN SODIUM 35655793154 Active Ana Wallace Active COLCRYS 0.6 MG TABS 1 tab qid prn gout COLCHICINE 92305298622 Active Norma Cazares Active INVOKANA 100 MG ORAL TABS 1 tablet orally daily CANAGLIFLOZIN 73761253559 Active Mitch Urbina DO Active MINOXIDIL 2.5 MG TABS 1 tablet daily for high blood pressure 10/23 MINOXIDIL 40217905657 Active Mitch Urbina DO Active MECLIZINE HCL 25 MG TAB 1 po tid 3 days, then 1/2 tab tid 3 days MECLIZINE HCL 70615542275 No Longer Active Corey SEGURA Active ALLOPURINOL 300 MG TABS Take 1 tablet by mouth daily 2 ALLOPURINOL 62992402995 No Longer Active Corey SEGURA Activ e CLONIDINE HCL 0.1 MG TABS 1 po bid 7 days, then 1/2 tab po b id 7 days CLONIDINE HCL 00730568589 No Longer Active Corey SEGURA Active COUMADIN 5 MG TABS 1 tab PO daily WARFARIN SODIUM 13453175481 Active Mitch Urbina DO Active COUMADIN 4 MG TABS 1 tablet daily WARFARIN SODI UM 00514045583 No Longer Active Corey SEGURA Active POLYTRIM 52491-8.1 UNIT/ML-% SOLN 1 drop in affected e ye every 3 hours while awake x 7 days POLYMYXIN B-TRIMETHOPRIM 62964176902 N o Longer Active Corey SEGURA Active LOSARTAN POTASSIUM-HCTZ 100-12.5 MG TABS 1 by mouth [place] for high blood pressure LOSARTAN POTASSIUM-HCTZ 97198990989 No Longer A ctive Mitch Urbina DO Active LISINOPRIL-HYDROCHLOROTHIAZIDE 20-12.5 MG TABS 1 tab by mouth da rocky LISINOPRIL-HYDROCHLOROTHIAZIDE 33176076653 No Longer Active Mitch luis DO Active LISINOPRIL 20 MG TABS 1 tab po at HS LISINOPRIL 74564224108 No Longer Active Mitch Urbina DO Active COUMADIN 5 MG TABS 1 by mouth every other day WARFARIN SODIUM 94077530118 No Longer Active Mitch Urbina DO Active COUMADIN 6 MG TABS 1 by mouth every other day WARFARIN SODIUM 09973708107 No Longer Active Mitch Urbina DO Active SIMVASTATIN 40 MG TABS 1 tab daily at bedtime S IMVASTATIN 40421074695 Active Mitch Urbina DO Active SIMVASTATIN 20 MG TABS 1 tab daily at bedtime S IMVASTATIN 25425723088 No Longer Active Mitch Urbina DO Active LOVENOX 100 MG/ML SC SOLN One injection twice a day 09/15/15 ENOXAPARIN SODIUM 27102986475 No Longer Active Carmine Yusuf MD A ctive JANUVIA 50 MG TABS Take one by mouth daily DIEGO GLIPTIN PHOSPHATE 39569115724 Active Mitch Urbina DO Active JANUVIA 100 MG TABS 1/2 by mouth every day DIEGO GLIPTIN PHOSPHATE 83121813708 No Longer Active Bijal Segal RN Active METFORMIN HCL 500 MG TABS 2 by mouth twice daily METFORMIN HCL 00401407781 Active Mitch Urbina DO Active COLCRYS 0.6 MG TABS 1 po q 6 hours prn gout pain 03/02 COLCHICINE 93515258338 No Longer Active Camila Reese Active LISINOPRIL 5 MG TABS 1 by mouth every day LISIN OPRIL 12318674973 No Longer Active Nguyen Perez Active KLOR-CON 20 MEQ PACK Take one by mouth daily 8 POTASSIUM CHLORIDE 98607227548 No Longer Active Nguyen Perez Active FUROSEMIDE 40 MG TABS 1 by mouth daily FUROSEMI DE 99333420658 No Longer Active Nguyen Perez Active PROVIGIL 200 MG TABS 1/2 tab po q day MODAFINIL 48646 583556 Active Mitch Urbina DO Active PROVIGIL 100 MG TABS Take one by mouth daily MO DAFINIL 68052385554 No Longer Active Mitch Urbina DO Active BACTRIM DS 800-160 MG TAB 1 tab by mouth twice daily 2 TRIMETHOPRIM-SULFAMETHOXAZOLE 89478705231 No Longer Active Renan Hays MD Active FAMOTIDINE 20 MG TABS by mouth twice a day FAMOTI DINE 61492265173 Active Mitch Urbina DO Active ADULT ASPIRIN LOW STRENGTH 81 MG TBDP 1 by mouth every daily ASPIRIN 94827214974 Active Mitch Urbina DO Active METOPROLOL TARTRATE 50 MG TABS 1 by mouth twice daily METOPROLOL TARTRATE 49661233431 Active Mitch Urbina DO Active BACTRIM DS 800-160 MG TAB 1 tab by mouth twice daily 2 BACTRIM DS 800-160 MG TAB 987192 TRIMETHOPRIM-SULFAMETHOXAZOLE Inac tive PROVIGIL 100 MG TABS Take one by mouth daily 4 PROVIGIL 100 MG TABS 437105 MODAFINIL Inactive FUROSEMIDE 40 MG TABS 1 by mouth daily FU ROSEMIDE 40 MG TABS 332104 FUROSEMIDE Inactive KLOR-CON 20 MEQ PACK Take one by mouth daily 8 KLOR-CON 20 MEQ PACK 8994452 POTASSIUM CHLORIDE Inactive LISINOPRIL 5 MG TABS 1 by mouth every day LISINOPRIL 5 MG TABS 951155 LISINOPRIL Inactive COLCRYS 0.6 MG TABS 1 po q 6 hours prn gout pain 03/02 COLCRYS 0.6 MG TABS 932216 COLCHICINE Inactive JANUVIA 100 MG TABS 1/2 by mouth every day JANUVI A 100 MG TABS SITAGLIPTIN PHOSPHATE Inactive SIMVASTATIN 20 MG TABS 1 tab daily at bedtime SIMVASTATIN 20 MG TABS 168581 SIMVASTATIN Inactive COUMADIN 6 MG TABS 1 by mouth every other day COUMADIN 6 MG TABS 967178 WARFARIN SODIUM Inactive COUMADIN 5 MG TABS 1 by mouth every other day COUMADIN 5 MG TABS 533523 WARFARIN SODIUM Inactive LISINOPRIL 20 MG TABS 1 tab po at HS KOKI NOPRIL 20 MG TABS 149440 LISINOPRIL Inactive LISINOPRIL-HYDROCHLOROTHIAZIDE 20-12.5 MG TABS 1 tab by mouth da rocky LISINOPRIL-HYDROCHLOROTHIAZIDE 20-12.5 MG TABS 900151 LISINOPRIL-HYDROCHLOROTHIAZIDE Inactive POLYTRIM 12087-1.1 UNIT/ML-% SOLN 1 drop in affected e ye every 3 hours while awake x 7 days POLYTRIM 69893-7.1 UNIT/ML-% SOLN 33376 7 POLYMYXIN B-TRIMETHOPRIM Inactive COUMADIN 4 MG TABS 1 tablet daily COUMADIN 4 MG TABS 137881 WARFARIN SODIUM Inactive CLONIDINE HCL 0.1 MG TABS 1 po bid 7 days, then 1/2 tab po b id 7 days CLONIDINE HCL 0.1 MG TABS 364400 CLONIDINE HCL I nactive ALLOPURINOL 300 MG TABS Take 1 tablet by mouth daily 2 ALLOPURINOL 300 MG TABS 825075 ALLOPURINOL Inactive MECLIZINE HCL 25 MG TAB 1 po tid 3 days, then 1/2 tab tid 3 days MECLIZINE HCL 25 MG TAB 938924 MECLIZINE HCL Inactive AMLODIPINE BESYLATE 5 MG TABS 1 tablet by mouth daily AMLODIPINE BESYLATE 5 MG TABS 818842 AMLODIPINE BESYLATE Inactive KEFLEX 500 MG CAP 1 po qid KEFLEX 500 MG CAP 30 9114 CEPHALEXIN Inactive LOVENOX 100 MG/ML SC SOLN One injection twice a day 09/15/15 LOVENOX 100 MG/ML SC SOLN 870424 ENOXAPARIN SODIUM Inactive Vital Signs Date Name [...] - Chem istry sodium, serum 139 mmol/L 778-273 2950/07/17 potassium, serum 4.2 mmol/L 3.5-5.2 chloride, serum 102 mmol/L 98-107 carbon dioxide, venous blood 28.9 mmol/L 21.0-32 .0 blood glucose 211 mg/dL 65-110 calcium, serum 10.6 mg/dL 8.5-10.1 urea nitrogen, blood 29 mg/dL 7-18 creatinine, serum 1.24 mg/dL 0.60-1.30 chloride, serum 102 mmol/L 98-107 blood glucose 117 mg/dL 65-110 calcium, serum 10.5 mg/dL 8.5-10.1 urea nitrogen, blood 26 mg/dL 7-18 creatinine, serum 1.15 mg/dL 0.60-1.30 carbon dioxide, venous blood 31.7 mmol/L 21.0-32 .0 sodium, serum 141 mmol/L 031-067 7590/08/07 potassium, serum 4.5 mmol/L 3.5-5.2 Lab Report: CBC, MICROALB/CREAT W/RATIO - Chemistry albumin/creatinine ratio, urine <30 mg/g Normal mg/g m g/g{creat} 0-29 Lab Report: CBC, MICROALB/CREAT W/RATIO - Hematology mean corpuscular volume, RBC 86 fL 80-97 hematocrit, blood 43.9 % 40.0-54.0 hemoglobin, blood 14.6 g/dL 14.0-18.0 erythrocyte (RBC) count 5.10 10^6/MM^3 10*6/mm3 4.50-6.5 0 leukocyte count, blood 8.7 10^3/MM^3 10*3/mm3 4.6-10.2 mean corpuscular hemoglobin, RBC 28.6 pg 27. 0-31.2 mean corpuscular hemoglobin concentration, RBC 33.2 G/DL % 31.8-35.4 red blood cell distribution width 14.9 % 11 .6-14.8 platelet count 216 10^3/MM^3 10*3/mm3 142-424 Lab Report: CBC, MICROALB/CREAT W/RATIO - Lab microalbumin, urine 10 mg/L 0-19 Lab Report: Comp. Metabolic Panel, Thyro id Stimulating Hormone (L), Pros ... - Chemistry sodium, serum 144 mmol/L 575-619 3436/06/12 carbon dioxide, venous blood 26.6 mmol/L 21.0-32 [...] prothrombin time (patient) 21.3 SECS s 11.1-13.4 prothrombin time (patient) 17.8 SECS s 11.1-13.4 international normalized ratio (INR) 2.0 1.0-3.5 international normalized ratio (INR) 2.4 1.0-3.5 prothrombin time (patient) 19.9 SECS s 11.1-13.4 Encounters Code Encounter Date Provider Facility CPT-32940 Level 3 Est. Patient 18:25:53 CDT Mitch luis [facility] CPT-55408 Level 3 Est. Patient 19:43:34 CDT Mitch luis [facility] CPT-65097 Level 4 Est. Patient 09:30:18 CDT Mitch luis [facility] CPT-98091 Level 3 Est. Patient 15:10:14 CDT Joe yunangela [facility] CPT-61548 Level 3 Est. Patient 15:03:46 CDT Joe Jason anh [facility] CPT-03664 Level 3 Est. Patient 14:21:06 CDT Mitch luis [facility] CPT-51823 Level 3 Est. Patient 14:52:06 CDT Joe Jason kamara [facility] CPT-70203 Level 3 Est. Patient 09:34:30 COMPUTER REPAIRER Mitch luis [facility] CPT-17398 Level 3 Est. Patient 09:37:15 CDT Mitch luis [facility] CPT-72448 Level 3 Est. Patient 17:01:00 COMPUTER REPAIRER Mitch luis [facility] CPT-68113 Level 3 Est. Patient 13:53:19 COMPUTER REPAIRER Mitch luis [facility] CPT-59622 Level 3 Est. Patient 19:19:37 COMPUTER REPAIRER Mitch luis [facility] CPT-25154 Level 3 Est. Patient 13:25:53 COMPUTER REPAIRER Tavo toure MD [facility] CPT-80600 Level 3 Est. Patient 18:17:28 CDT Mitch luis [facility] CPT-39009 Level 3 Est. Patient 15:22:57 CDT Mitch luis [facility] CPT-88902 Level 3 Est. Patient 18:21:50 CDT Mitch W L janelle [facility] CPT-05293 Level 3 Est. Patient 18:20:38 CDT Mitch W L janelle [facility] CPT-89355 Level 3 Est. Patient 15:37:55 CDT Mitch W L janelle [facility] CPT-81697 Level 2 Est. Patient 15:54:44 CDT Carmine benton MD [facility] CPT-40072 Level 3 Est. Patient 21:46:01 COMPUTER REPAIRER Mitch luis [facility] CPT-82355 Level 3 Est. Patient 22:15:50 CDT Mitch luis [facility] CPT-56464 Level 3 Est. Patient 10:48:15 CDT Mitch ulis [facility] CPT-06234 Level 3 Est. Patient 23:20:57 CDT Tavo toure MD [facility] CPT-30555 Level 3 Est. Patient 16:26:13 CDT Mitch Ambrose Nona luis [facility] Procedures Code Procedure Name Date Entry Date Standard Desc ription CPT-57900 Venipuncture Draw Fee 09:26:17 CDT CPT-55001 PT/INR - LAB USE ONLY 13:32:49 COMPUTER REPAIRER CPT-24614 Venipuncture Draw Fee 13:32:49 COMPUTER REPAIRER CPT-65713 PT/INR - LAB USE ONLY 10:34:49 COMPUTER REPAIRER CPT-08582 Venipuncture Draw Fee 10:34:48 COMPUTER REPAIRER CPT-99371 PT/INR - LAB USE ONLY 09:22:03 COMPUTER REPAIRER CPT-36408 Venipuncture Draw Fee 09:22:02 COMPUTER REPAIRER CPT-83371 Hemoccult IFOBT - LAB USE ONLY 10:27:22 CDT CPT-88826 Venipuncture Draw Fee 08:27:08 CDT CPT-98413 Liver Profile - LAB USE ONLY 08:27:07 CDT 2 CPT-53438 Microalbumin - LAB USE ONLY 08:27:07 CDT 20 25/05/09 CPT-50199 PT/INR - LAB USE ONLY 08:27:07 CDT CPT-78533 HGBA1C - LAB USE ONLY 08:27:07 CDT CPT-78465 CBC - LAB USE ONLY 08:27:07 CDT CPT-98774 Venipuncture Draw Fee 11:09:14 CDT CPT-37970 Venipuncture Draw Fee 08:32:21 COMPUTER REPAIRER CPT-31089 Venipuncture Draw Fee 09:38:56 COMPUTER REPAIRER CPT-30257 No Charge Offi Visit 21:36:07 CDT 1 CPT-72198 Venipuncture Draw Fee 10:13:28 COMPUTER REPAIRER CPT-90117 Venipuncture Draw Fee 08:31:11 CDT CPT-82228 Aspir/Inject Med Joint 18:17:28 CDT CPT-56309 Venipuncture Draw Fee 10:13:30 CDT CPT-07070 Venipuncture Draw Fee 08:31:43 COMPUTER REPAIRER CPT-JTINJ Joint Injection 18:34:50 CDT CPT-01257 Knee 3V 12:25:09 CDT CPT-40847 Venipuncture Draw Fee 12:15:57 CDT CPT-060 Medical Surveillance Exam 21:31:43 CDT 2011 CPT-46275 Venipuncture Draw Fee 08:32:05 COMPUTER REPAIRER CPT-OV Office Visit 18:19:06 CDT
--- OUTSIDE RECORDS SUMMARY | 2020-01-18 12:16 | XMS REPORT | Clinical Summary ---
[...] Coronary atherosclerosis of unspecified type of vessel, redding or graft EDEMA 782.3 Active Mitch Urbina [...] 1 tablet by mouth daily AMLODIPINE BESYLATE 46815186660 Active Mitch Urbina DO Active MECLIZINE HCL 25 MG TAB 1 po tid 3 days, then 1/2 tab tid 3 days MECLIZINE HCL 60932282477 No Longer Active Corey SEGURA Active ALLOPURINOL 300 MG TABS Take 1 tablet by mouth daily 2 ALLOPURINOL 89537945705 No Longer Active Corey SEGURA Activ e CLONIDINE HCL 0.1 MG TABS 1 po bid 7 days, then 1/2 tab po b id 7 days CLONIDINE HCL 25336237213 No Longer Active Croey SEGURA Active COUMADIN 5 MG TABS 1 tab PO daily WARFARIN SODIUM 54561244601 Active Mitch Urbina DO Active COUMADIN 4 MG TABS 1 tablet daily WARFARIN SODI UM 65787717094 No Longer Active Corey SEGURA Active POLYTRIM 72996-2.1 UNIT/ML-% SOLN 1 drop in affected e ye every 3 hours while awake x 7 days POLYMYXIN B-TRIMETHOPRIM 53454539464 N o Longer Active Corey SEGURA Active LOSARTAN POTASSIUM-HCTZ 100-12.5 MG TABS 1 by mouth da rocky for high blood pressure LOSARTAN POTASSIUM-HCTZ 87219449326 Active Stephy Urbina DO Active LISINOPRIL-HYDROCHLOROTHIAZIDE 20-12.5 MG TABS 1 tab by mouth da rocky LISINOPRIL-HYDROCHLOROTHIAZIDE 71090442875 No Longer Active Mitch luis DO Active LISINOPRIL 20 MG TABS 1 tab po at HS LISINOPRIL 18121375500 No Longer Active Mitch Urbina DO Active COUMADIN 5 MG TABS 1 by mouth every other day WARFARIN SODIUM 35055306676 No Longer Active Mitch Urbina DO Active COUMADIN 6 MG TABS 1 by mouth every other day WARFARIN SODIUM 80669866441 No Longer Active Mitch Urbina DO Active COLCRYS 0.6 MG TABS 1 tab qid prn gout COLCHICINE 25538385595 Active Corey SEGURA Active SIMVASTATIN 40 MG TABS 1 tab daily at bedtime S IMVASTATIN 11586413019 Active Mitch Urbina DO Active SIMVASTATIN 20 MG TABS 1 tab daily at bedtime S IMVASTATIN 59735804938 No Longer Active Mitch Urbina DO Active LOVENOX 100 MG/ML SC SOLN One injection twice a day 09/15/15 ENOXAPARIN SODIUM 26274709354 No Longer Active Carmine Navarrete ctive JANUVIA 50 MG TABS Take one by mouth daily DIEGO GLIPTIN PHOSPHATE 48350936666 Active Corey Arias PA Active JANUVIA 100 MG TABS 1/2 by mouth every day DIEGO GLIPTIN PHOSPHATE 19271264893 No Longer Active Bijalseth Segla RN Active METFORMIN HCL 500 MG TABS 2 by mouth twice daily METFORMIN HCL 33143328316 Active Mitch Urbina DO Active GLIMEPIRIDE 4 MG TABS 1 tab po bid GLIMEPIRIDE 379314 81094 Active Mitch Urbina DO Active COLCRYS 0.6 MG TABS 1 po q 6 hours prn gout pain 03/02 COLCHICINE 63745956185 No Longer Active Camila Reese Active LISINOPRIL 5 MG TABS 1 by mouth every day LISIN OPRIL 19540029117 No Longer Active Nguyen Perez Active KLOR-CON 20 MEQ PACK Take one by mouth daily 8 POTASSIUM CHLORIDE 17956785846 No Longer Active Nguyen Perez Active FUROSEMIDE 40 MG TABS 1 by mouth daily FUROSEMI DE 85358044870 No Longer Active Nguyen Perez Active PROVIGIL 200 MG TABS 1/2 tab po q day MODAFINIL 79509 204927 Active Mitch Urbina DO Active PROVIGIL 100 MG TABS Take one by mouth daily MO DAFINIL 45848250258 No Longer Active Mitch Urbina DO Active BACTRIM DS 800-160 MG TAB 1 tab by mouth twice daily 2 TRIMETHOPRIM-SULFAMETHOXAZOLE 11052161094 No Longer Active Renan Hays MD Active FAMOTIDINE 20 MG TABS by mouth twice a day FAMOTI DINE 50805244686 Active Mitch Urbina DO Active ADULT ASPIRIN LOW STRENGTH 81 MG TBDP 1 by mouth every daily ASPIRIN 97445388859 Active Mitch Urbina DO Active METOPROLOL TARTRATE 50 MG TABS 1 by mouth twice daily METOPROLOL TARTRATE 20028601671 Active Mitch W Carlitos DO Active BACTRIM DS 800-160 MG TAB 1 tab by mouth twice daily 2 BACTRIM DS 800-160 MG TAB TRIMETHOPRIM-SULFAMETHOXAZOLE Inac tive PROVIGIL 100 MG TABS Take one by mouth daily 4 PROVIGIL 100 MG TABS 009786 MODAFINIL Inactive FUROSEMIDE 40 MG TABS 1 by mouth daily FU ROSEMIDE 40 MG TABS 813641 FUROSEMIDE Inactive KLOR-CON 20 MEQ PACK Take one by mouth daily 8 KLOR-CON 20 MEQ PACK 060280 POTASSIUM CHLORIDE Inactive LISINOPRIL 5 MG TABS 1 by mouth every day LISINOPRIL 5 MG TABS 074512 LISINOPRIL Inactive COLCRYS 0.6 MG TABS 1 po q 6 hours prn gout pain 03/02 COLCRYS 0.6 MG TABS COLCHICINE Inactive JANUVIA 100 MG TABS 1/2 by mouth every day JANUVI A 100 MG TABS SITAGLIPTIN PHOSPHATE Inactive SIMVASTATIN 20 MG TABS 1 tab daily at bedtime SIMVASTATIN 20 MG TABS 567637 SIMVASTATIN Inactive COUMADIN 6 MG TABS 1 by mouth every other day COUMADIN 6 MG TABS 374693 WARFARIN SODIUM Inactive COUMADIN 5 MG TABS 1 by mouth every other day COUMADIN 5 MG TABS 095208 WARFARIN SODIUM Inactive LISINOPRIL 20 MG TABS 1 tab po at HS KOKI NOPRIL 20 MG TABS 831116 LISINOPRIL Inactive LISINOPRIL-HYDROCHLOROTHIAZIDE 20-12.5 MG TABS 1 tab by mouth da rocky LISINOPRIL-HYDROCHLOROTHIAZIDE 20-12.5 MG TABS 406063 LISINOPRIL-HYDROCHLOROTHIAZIDE Inactive POLYTRIM 85539-2.1 UNIT/ML-% SOLN 1 drop in affected e ye every 3 hours while awake x 7 days POLYTRIM 24386-5.1 UNIT/ML-% SOLN 48150 7 POLYMYXIN B-TRIMETHOPRIM Inactive COUMADIN 4 MG TABS 1 tablet daily COUMADIN 4 MG TABS 278808 WARFARIN SODIUM Inactive CLONIDINE HCL 0.1 MG TABS 1 po bid 7 days, then 1/2 tab po b id 7 days CLONIDINE HCL 0.1 MG TABS 435261 CLONIDINE HCL I nactive ALLOPURINOL 300 MG TABS Take 1 tablet by mouth daily 2 ALLOPURINOL 300 MG TABS 570591 ALLOPURINOL Inactive MECLIZINE HCL 25 MG TAB 1 po tid 3 days, then 1/2 tab tid 3 days MECLIZINE HCL 25 MG TAB 742342 MECLIZINE HCL Inactive LOVENOX 100 MG/ML SC SOLN One injection twice a day 09/15/15 LOVENOX 100 MG/ML SC SOLN 569700 ENOXAPARIN SODIUM Inactive Vital Signs Date Name [...] 10.3 mg/dL 2.6-7.2 sodium, serum 136 mmol/L 597-266 2791/07/25 potassium, serum 4.6 mmol/L 3.5-5.2 chloride, serum [...] Panel - Chemistry sodium, serum 137 mmol/L 580-305 1537/11/14 potassium, serum 4.4 mmol/L 3.5-5.2 chloride, serum [...] 8.0 % 4.3-6.0 cholesterol, serum 130 mg/dL 514-658 0099/11/14 triglyceride, serum, fasting 288 mg/dL 30-200 HDL cholesterol, serum 33 mg/dL 32-96 LDL cholesterol, serum 39 mg/dL 0-130 Lab Report: Comp. Metabolic Panel, HGBA1 C, Lipid Panel, Prothrombin Time - Chemistry sodium, serum 136 mmol/L 674-531 7864/12/02 potassium, serum 4.4 mmol/L 3.5-5.2 chloride, serum [...] 7.6 % 4.3-6.0 cholesterol, serum 117 mg/dL 261-522 3980/12/02 triglyceride, serum, fasting 226 mg/dL 30-200 HDL [...] ratio (INR) 2.2 1.0-3.5 prothrombin time (patient) 18.4 SECS s [...] 1.0-3.5 Encounters Code Encounter Date Provider Facility CPT-11598 Level 3 Est. Patient 17:01:00 WATCH REPAIR TECHNICIAN Mitch luis [facility] CPT-97206 Level 3 Est. Patient 13:53:19 WATCH REPAIR TECHNICIAN Mitch luis [facility] CPT-13937 Level 3 Est. Patient 19:19:37 WATCH REPAIR TECHNICIAN Mitch luis [facility] CPT-66264 Level 3 Est. Patient 13:25:53 WATCH REPAIR TECHNICIAN Tavo toure MD [facility] CPT-12871 Level 3 Est. Patient 18:17:28 CDT Mitch luis [facility] CPT-56724 Level 3 Est. Patient 15:22:57 CDT Mitch luis [facility] CPT-96589 Level 3 Est. Patient 18:21:50 CDT Mitch luis [facility] CPT-03939 Level 3 Est. Patient 18:20:38 CDT Mitch luis [facility] CPT-16391 Level 3 Est. Patient 15:37:55 CDT Mitch luis [facility] CPT-51573 Level 2 Est. Patient 15:54:44 CDT Carmine benton MD [facility] CPT-23579 Level 3 Est. Patient 21:46:01 WATCH REPAIR TECHNICIAN Mitch luis [facility] CPT-12523 Level 3 Est. Patient 22:15:50 CDT Mitch luis [facility] CPT-16090 Level 3 Est. Patient 10:48:15 CDT Mitch luis [facility] CPT-18788 Level 3 Est. Patient 23:20:57 CDT Tavo toure MD [facility] CPT-94904 Level 3 Est. Patient 16:26:13 CDT Mitch luis [facility] Procedures Code Procedure Name Date Entry Date Standard Desc ription CPT-81571 Venipuncture Draw Fee 10:13:28 WATCH REPAIR TECHNICIAN CPT-82243 Venipuncture Draw Fee 08:31:11 CDT CPT-76601 Aspir/Inject Med Joint 18:17:28 CDT CPT-43571 Venipuncture Draw Fee 10:13:30 CDT CPT-37508 Venipuncture Draw Fee 08:31:43 WATCH REPAIR TECHNICIAN CPT-JTINJ Joint Injection 18:34:50 CDT CPT-16232 Knee 3V 12:25:09 CDT CPT-02276 Venipuncture Draw Fee 12:15:57 CDT CPT-060 Medical Surveillance Exam 21:31:43 CDT 2011 CPT-21674 Venipuncture Draw Fee 08:32:05 WATCH REPAIR TECHNICIAN CPT-OV Office Visit 18:19:06 CDT
--- OUTSIDE RECORDS SUMMARY | 2020-01-18 12:17 | XMS REPORT | Clinical Summary ---
Author Author Admin, Mitch Leon Organization [facility] Address Unknown Phone Unavailable Allergies, Adverse Reactions, [...] vessel, white earth or graft EDEMA 782.3 Active Mitch Urbina [...] 1 tablet by mouth daily AMLODIPINE BESYLATE 27622111187 Active Mitch Urbina DO Active MECLIZINE HCL 25 MG TAB 1 po tid 3 days, then 1/2 tab tid 3 days MECLIZINE HCL 62134934667 No Longer Active Corey SEGURA Active ALLOPURINOL 300 MG TABS Take 1 tablet by mouth daily 2 ALLOPURINOL 86735734294 No Longer Active Corey SEGURA Activ e CLONIDINE HCL 0.1 MG TABS 1 po bid 7 days, then 1/2 tab po b id 7 days CLONIDINE HCL 36251606720 No Longer Active Corey SEGURA Active COUMADIN 5 MG TABS 1 tab PO daily WARFARIN SODIUM 14738990101 Active Mitch Urbina DO Active COUMADIN 4 MG TABS 1 tablet daily WARFARIN SODI UM 79865307217 No Longer Active Corey SEGURA Active POLYTRIM 10870-8.1 UNIT/ML-% SOLN 1 drop in affected e ye every 3 hours while awake x 7 days POLYMYXIN B-TRIMETHOPRIM 76453154468 N o Longer Active Corey SEGURA Active LOSARTAN POTASSIUM-HCTZ 100-12.5 MG TABS 1 by mouth da rocky for high blood pressure LOSARTAN POTASSIUM-HCTZ 58368929642 Active Stephy Urbina DO Active LISINOPRIL-HYDROCHLOROTHIAZIDE 20-12.5 MG TABS 1 tab by mouth da rocky LISINOPRIL-HYDROCHLOROTHIAZIDE 70966711607 No Longer Active Mitch luis DO Active LISINOPRIL 20 MG TABS 1 tab po at HS LISINOPRIL 24475953271 No Longer Active Mitch Urbina DO Active COUMADIN 5 MG TABS 1 by mouth every other day WARFARIN SODIUM 34278647588 No Longer Active Mitch Urbina DO Active COUMADIN 6 MG TABS 1 by mouth every other day WARFARIN SODIUM 71852924754 No Longer Active Mitch Urbina DO Active COLCRYS 0.6 MG TABS 1 tab qid prn gout COLCHICINE 13031508044 Active Corey SEGURA Active SIMVASTATIN 40 MG TABS 1 tab daily at bedtime S IMVASTATIN 16747277204 Active Mitch Urbina DO Active SIMVASTATIN 20 MG TABS 1 tab daily at bedtime S IMVASTATIN 86889580148 No Longer Active Mitch Urbina DO Active LOVENOX 100 MG/ML SC SOLN One injection twice a day 09/15/15 ENOXAPARIN SODIUM 57521997445 No Longer Active Carmine D [place] MD A ctive JANUVIA 50 MG TABS Take one by mouth daily DIEGO GLIPTIN PHOSPHATE 62735684800 Active Mitch Urbina DO Active JANUVIA 100 MG TABS 1/2 by mouth every day DIEGO GLIPTIN PHOSPHATE 63044911961 No Longer Active Bijal Philipp RN Active METFORMIN HCL 500 MG TABS 2 by mouth twice daily METFORMIN HCL 77745265808 Active Mitch Urbina DO Active GLIMEPIRIDE 4 MG TABS 1 tab po bid GLIMEPIRIDE 614843 82483 Active Mitch Urbina DO Active COLCRYS 0.6 MG TABS 1 po q 6 hours prn gout pain 03/02 COLCHICINE 34035355438 No Longer Active Camila Reese Active LISINOPRIL 5 MG TABS 1 by mouth every day LISIN OPRIL 94332902434 No Longer Active Nguyen Perez Active KLOR-CON 20 MEQ PACK Take one by mouth daily 8 POTASSIUM CHLORIDE 15330281634 No Longer Active Nguyen Perez Active FUROSEMIDE 40 MG TABS 1 by mouth daily FUROSEMI DE 24246154957 No Longer Active Nguyen Perez Active PROVIGIL 200 MG TABS 1/2 tab po q day MODAFINIL 73960 508089 Active Mitch Urbina DO Active PROVIGIL 100 MG TABS Take one by mouth daily MO DAFINIL 79281627826 No Longer Active Mitch Urbina DO Active BACTRIM DS 800-160 MG TAB 1 tab by mouth twice daily 2 TRIMETHOPRIM-SULFAMETHOXAZOLE 32179641196 No Longer Active Renan Hays MD Active FAMOTIDINE 20 MG TABS by mouth twice a day FAMOTI DINE 18100253712 Active Mitch Urbina DO Active ADULT ASPIRIN LOW STRENGTH 81 MG TBDP 1 by mouth every daily ASPIRIN 83747366183 Active Mitch Urbina DO Active METOPROLOL TARTRATE 50 MG TABS 1 by mouth twice daily METOPROLOL TARTRATE 18108124462 Active Mitch W Carl[place] DO Active BACTRIM DS 800-160 MG TAB 1 tab by mouth twice daily 2 BACTRIM DS 800-160 MG TAB TRIMETHOPRIM-SULFAMETHOXAZOLE Inac tive PROVIGIL 100 MG TABS Take one by mouth daily 4 PROVIGIL 100 MG TABS 427315 MODAFINIL Inactive FUROSEMIDE 40 MG TABS 1 by mouth daily FU ROSEMIDE 40 MG TABS 808400 FUROSEMIDE Inactive KLOR-CON 20 MEQ PACK Take one by mouth daily 8 KLOR-CON 20 MEQ PACK 941893 POTASSIUM CHLORIDE Inactive LISINOPRIL 5 MG TABS 1 by mouth every day LISINOPRIL 5 MG TABS 481840 LISINOPRIL Inactive COLCRYS 0.6 MG TABS 1 po q 6 hours prn gout pain 03/02 COLCRYS 0.6 MG TABS COLCHICINE Inactive JANUVIA 100 MG TABS 1/2 by mouth every day JANUVI A 100 MG TABS SITAGLIPTIN PHOSPHATE Inactive SIMVASTATIN 20 MG TABS 1 tab daily at bedtime SIMVASTATIN 20 MG TABS 439290 SIMVASTATIN Inactive COUMADIN 6 MG TABS 1 by mouth every other day COUMADIN 6 MG TABS 326601 WARFARIN SODIUM Inactive COUMADIN 5 MG TABS 1 by mouth every other day COUMADIN 5 MG TABS 925252 WARFARIN SODIUM Inactive LISINOPRIL 20 MG TABS 1 tab po at HS KOKI NOPRIL 20 MG TABS 700936 LISINOPRIL Inactive LISINOPRIL-HYDROCHLOROTHIAZIDE 20-12.5 MG TABS 1 tab by mouth da rocky LISINOPRIL-HYDROCHLOROTHIAZIDE 20-12.5 MG TABS 282077 LISINOPRIL-HYDROCHLOROTHIAZIDE Inactive POLYTRIM 81943-2.1 UNIT/ML-% SOLN 1 drop in affected e ye every 3 hours while awake x 7 days POLYTRIM 07759-8.1 UNIT/ML-% SOLN 38589 7 POLYMYXIN B-TRIMETHOPRIM Inactive COUMADIN 4 MG TABS 1 tablet daily COUMADIN 4 MG TABS 423849 WARFARIN SODIUM Inactive CLONIDINE HCL 0.1 MG TABS 1 po bid 7 days, then 1/2 tab po b id 7 days CLONIDINE HCL 0.1 MG TABS 818495 CLONIDINE HCL I nactive ALLOPURINOL 300 MG TABS Take 1 tablet by mouth daily 2 ALLOPURINOL 300 MG TABS 609755 ALLOPURINOL Inactive MECLIZINE HCL 25 MG TAB 1 po tid 3 days, then 1/2 tab tid 3 days MECLIZINE HCL 25 MG TAB 991161 MECLIZINE HCL Inactive LOVENOX 100 MG/ML SC SOLN One injection twice a day 09/15/15 LOVENOX 100 MG/ML SC SOLN 590681 ENOXAPARIN SODIUM Inactive Vital Signs Date Name [...] Acid - Chemistry sodium, serum 136 mmol/L 043-133 1325/07/25 potassium, serum 4.6 mmol/L 3.5-5.2 chloride, serum [...] 11 .6-14.8 platelet count 277 10^3/MM^3 10*3/mm3 142-485 9698/07/25 mean corpuscular volume, RBC 80 fL 80-97 [...] 8.0 % 4.3-6.0 cholesterol, serum 130 mg/dL 413-308 0077/11/14 triglyceride, serum, fasting 288 mg/dL 30-200 HDL cholesterol, serum 33 mg/dL 32-96 LDL cholesterol, serum 39 mg/dL 0-130 sodium, serum 137 mmol/L 844-172 0398/11/14 potassium, serum 4.4 mmol/L 3.5-5.2 chloride, serum [...] Time - Chemistry sodium, serum 136 mmol/L 312-811 7069/12/02 potassium, serum 4.4 mmol/L 3.5-5.2 chloride, serum [...] 7.6 % 4.3-6.0 cholesterol, serum 117 mg/dL 069-746 2327/12/02 triglyceride, serum, fasting 226 mg/dL 30-200 HDL [...] 1.0-3.5 Encounters Code Encounter Date Provider Facility CPT-26683 Level 3 Est. Patient 17:01:00 ATTENDING ANESTHESIOLOGIST Mitch luis [facility] CPT-27274 Level 3 Est. Patient 13:53:19 ATTENDING ANESTHESIOLOGIST Mitch luis [facility] CPT-87405 Level 3 Est. Patient 19:19:37 ATTENDING ANESTHESIOLOGIST Mitch lius [facility] CPT-40648 Level 3 Est. Patient 13:25:53 ATTENDING ANESTHESIOLOGIST Tavo toure MD [facility] CPT-95003 Level 3 Est. Patient 18:17:28 CDT Mitch luis [facility] CPT-83580 Level 3 Est. Patient 15:22:57 CDT Mitch luis [facility] CPT-46441 Level 3 Est. Patient 18:21:50 CDT Mitch Ambrose L janelle [facility] CPT-79705 Level 3 Est. Patient 18:20:38 CDT Mitch luis [facility] CPT-38154 Level 3 Est. Patient 15:37:55 CDT Mtich luis [facility] CPT-19813 Level 2 Est. Patient 15:54:44 CDT Carmine benton MD [facility] CPT-82136 Level 3 Est. Patient 21:46:01 ATTENDING ANESTHESIOLOGIST Mitch luis [facility] CPT-14445 Level 3 Est. Patient 22:15:50 CDT Mitch Arnol luis [facility] CPT-96059 Level 3 Est. Patient 10:48:15 CDT Mitch luis [facility] CPT-83443 Level 3 Est. Patient 23:20:57 CDT Tavo toure MD [facility] CPT-19127 Level 3 Est. Patient 16:26:13 CDT Mitch Ambrose Nona janelle [facility] Procedures Code Procedure Name Date Entry Date Standard Desc ription CPT-46834 Venipuncture Draw Fee 10:13:28 ATTENDING ANESTHESIOLOGIST CPT-00862 Venipuncture Draw Fee 08:31:11 CDT CPT-25533 Aspir/Inject Med Joint 18:17:28 CDT CPT-36469 Venipuncture Draw Fee 10:13:30 CDT CPT-29004 Venipuncture Draw Fee 08:31:43 ATTENDING ANESTHESIOLOGIST CPT-JTINJ Joint Injection 18:34:50 CDT CPT-76435 Knee 3V 12:25:09 CDT CPT-18586 Venipuncture Draw Fee 12:15:57 CDT CPT-060 Medical Surveillance Exam 21:31:43 CDT 2011 CPT-35277 Venipuncture Draw Fee 08:32:05 ATTENDING ANESTHESIOLOGIST CPT-OV Office Visit 18:19:06 CDT
--- OUTSIDE RECORDS SUMMARY | 2020-01-18 12:17 | XMS REPORT | Clinical Summary ---
Author Author Admin, Mitch Leon Organization 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 COLCHICINE 59 943599934 Active Mitch Urbina DO Active COUMADIN 1 MG TAB 2 tabs orally daily with the 5mg tab to equal 7mg daily WARFARIN SODIUM 02054183071 Active Norma Cazares Active COLCRYS 0.6 MG TABS 1 tab qid prn gout COLCHICINE 82224199544 Active Norma Cazares Active INVOKANA 100 MG ORAL TABS 1 tablet orally daily CANAGLIFLOZIN 51935534406 Active Mitch Urbina DO Active MINOXIDIL 2.5 MG TABS 1 tablet daily for high blood pressure 10/23 MINOXIDIL 24668318150 Active Domi Rivera MA Active AMLODIPINE BESYLATE 5 MG TABS 1 tablet by mouth daily AMLODIPINE BESYLATE 14214972253 Active Mitch Urbina DO Active MECLIZINE HCL 25 MG TAB 1 po tid 3 days, then 1/2 tab tid 3 days MECLIZINE HCL 10285819881 No Longer Active Corey SEGURA Active ALLOPURINOL 300 MG TABS Take 1 tablet by mouth daily 2 ALLOPURINOL 15345863010 No Longer Active Corey SEGURA Activ e CLONIDINE HCL 0.1 MG TABS 1 po bid 7 days, then 1/2 tab po b id 7 days CLONIDINE HCL 88524115379 No Longer Active Corey SEGURA Active COUMADIN 5 MG TABS 1 tab PO daily WARFARIN SODIUM 41940565724 Active Mitch Urbina DO Active COUMADIN 4 MG TABS 1 tablet daily WARFARIN SODI UM 17707985286 No Longer Active Corey SEGURA Active POLYTRIM 71144-5.1 UNIT/ML-% SOLN 1 drop in affected e ye every 3 hours while awake x 7 days POLYMYXIN B-TRIMETHOPRIM 84094948976 N o Longer Active Corey SEGURA Active LOSARTAN POTASSIUM-HCTZ 100-12.5 MG TABS 1 by mouth da rocky for high blood pressure LOSARTAN POTASSIUM-HCTZ 35134308957 Active Stephy Urbina DO Active LISINOPRIL-HYDROCHLOROTHIAZIDE 20-12.5 MG TABS 1 tab by mouth da rocky LISINOPRIL-HYDROCHLOROTHIAZIDE 46710518664 No Longer Active Mitch luis DO Active LISINOPRIL 20 MG TABS 1 tab po at HS LISINOPRIL 78011313428 No Longer Active Mitch Urbina DO Active COUMADIN 5 MG TABS 1 by mouth every other day WARFARIN SODIUM 40899055851 No Longer Active Mitch Urbina DO Active COUMADIN 6 MG TABS 1 by mouth every other day WARFARIN SODIUM 51755948133 No Longer Active Mitch Arnol Carlitos DO Active SIMVASTATIN 40 MG TABS 1 tab daily at bedtime S IMVASTATIN 84390854656 Active Mitch Urbina DO Active SIMVASTATIN 20 MG TABS 1 tab daily at bedtime S IMVASTATIN 15251993421 No Longer Active Mitch Urbina DO Active LOVENOX 100 MG/ML SC SOLN One injection twice a day 09/15/15 ENOXAPARIN SODIUM 05239727241 No Longer Active Carmine Navarrete ctive JANUVIA 50 MG TABS Take one by mouth daily DIEGO GLIPTIN PHOSPHATE 74566971078 Active Mitch Arnol Carlitos DO Active JANUVIA 100 MG TABS 1/2 by mouth every day DIEGO GLIPTIN PHOSPHATE 01691343371 No Longer Active Bijal Segal RN Active METFORMIN HCL 500 MG TABS 2 by mouth twice daily METFORMIN HCL 42907672998 Active Mitch Arnol Carlitos DO Active GLIMEPIRIDE 4 MG TABS 1 tab po bid GLIMEPIRIDE 791110 98958 Active Mitch Arnol Carlitos DO Active COLCRYS 0.6 MG TABS 1 po q 6 hours prn gout pain 03/02 COLCHICINE 37464271203 No Longer Active Camila Reese Active LISINOPRIL 5 MG TABS 1 by mouth every day LISIN OPRIL 21344382525 No Longer Active Nguyen Perez Active KLOR-CON 20 MEQ PACK Take one by mouth daily 8 POTASSIUM CHLORIDE 85038829411 No Longer Active Nguyenmolly Perez Active FUROSEMIDE 40 MG TABS 1 by mouth daily FUROSEMI DE 39198583805 No Longer Active Nguyen Preez Active PROVIGIL 200 MG TABS 1/2 tab po q day MODAFINIL 38163 309816 Active Kathie Juan RPT,RMA Active PROVIGIL 100 MG TABS Take one by mouth daily MO DAFINIL 20644677279 No Longer Active Mitch Urbina DO Active BACTRIM DS 800-160 MG TAB 1 tab by mouth twice daily 2 TRIMETHOPRIM-SULFAMETHOXAZOLE 92825362966 No Longer Active Renan Hays MD Active FAMOTIDINE 20 MG TABS by mouth twice a day FAMOTI DINE 71720317707 Active Mitch Urbina DO Active ADULT ASPIRIN LOW STRENGTH 81 MG TBDP 1 by mouth every daily ASPIRIN 87649773525 Active Mitch Urbina DO Active METOPROLOL TARTRATE 50 MG TABS 1 by mouth twice daily METOPROLOL TARTRATE 66858216419 Active Mitch Urbina DO Active BACTRIM DS 800-160 MG TAB 1 tab by mouth twice daily 2 BACTRIM DS 800-160 MG TAB 709911 TRIMETHOPRIM-SULFAMETHOXAZOLE Inac tive PROVIGIL 100 MG TABS Take one by mouth daily 4 PROVIGIL 100 MG TABS 438127 MODAFINIL Inactive FUROSEMIDE 40 MG TABS 1 by mouth daily FU ROSEMIDE 40 MG TABS 262030 FUROSEMIDE Inactive KLOR-CON 20 MEQ PACK Take one by mouth daily 8 KLOR-CON 20 MEQ PACK 240417 POTASSIUM CHLORIDE Inactive LISINOPRIL 5 MG TABS 1 by mouth every day LISINOPRIL 5 MG TABS 984405 LISINOPRIL Inactive COLCRYS 0.6 MG TABS 1 po q 6 hours prn gout pain 03/02 COLCRYS 0.6 MG TABS 735978 COLCHICINE Inactive JANUVIA 100 MG TABS 1/2 by mouth every day JANUVI A 100 MG TABS SITAGLIPTIN PHOSPHATE Inactive SIMVASTATIN 20 MG TABS 1 tab daily at bedtime SIMVASTATIN 20 MG TABS 797973 SIMVASTATIN Inactive COUMADIN 6 MG TABS 1 by mouth every other day COUMADIN 6 MG TABS 916260 WARFARIN SODIUM Inactive COUMADIN 5 MG TABS 1 by mouth every other day COUMADIN 5 MG TABS 347257 WARFARIN SODIUM Inactive LISINOPRIL 20 MG TABS 1 tab po at HS KOKI NOPRIL 20 MG TABS 779492 LISINOPRIL Inactive LISINOPRIL-HYDROCHLOROTHIAZIDE 20-12.5 MG TABS 1 tab by mouth da rocky LISINOPRIL-HYDROCHLOROTHIAZIDE 20-12.5 MG TABS 145222 LISINOPRIL-HYDROCHLOROTHIAZIDE Inactive POLYTRIM 30710-8.1 UNIT/ML-% SOLN 1 drop in affected e ye every 3 hours while awake x 7 days POLYTRIM 40970-7.1 UNIT/ML-% SOLN 77677 7 POLYMYXIN B-TRIMETHOPRIM Inactive COUMADIN 4 MG TABS 1 tablet daily COUMADIN 4 MG TABS 331893 WARFARIN SODIUM Inactive CLONIDINE HCL 0.1 MG TABS 1 po bid 7 days, then 1/2 tab po b id 7 days CLONIDINE HCL 0.1 MG TABS 927905 CLONIDINE HCL I nactive ALLOPURINOL 300 MG TABS Take 1 tablet by mouth daily 2 ALLOPURINOL 300 MG TABS 021308 ALLOPURINOL Inactive MECLIZINE HCL 25 MG TAB 1 po tid 3 days, then 1/2 tab tid 3 days MECLIZINE HCL 25 MG TAB 898050 MECLIZINE HCL Inactive LOVENOX 100 MG/ML SC SOLN One injection twice a day 09/15/15 LOVENOX 100 MG/ML SC SOLN 200281 ENOXAPARIN SODIUM Inactive Vital Signs Date Name [...] PANEL, MICROALB/CREAT W/RATIO, HGBA1C, CBC - Chemistry triglyceride, serum, fasting 187 mg/dL 30-200 HDL cholesterol, serum 39 mg/dL 32-96 LDL cholesterol, serum 60 mg/dL 0-130 aspartate aminotransferase (SGOT), serum 24 U/L 15-37 alanine aminotransferase (SGPT), serum 29 U/L 12-78 bilirubin, serum, total 0.60 mg/dL 0.00-1.00 albumin/creatinine ratio, urine < 30 mg/g mg/g{creat} 0-2 9 hemoglobin A1C, blood, as % of total hemoglobin 6.3 % 4.3-6.0 cholesterol, serum 136 mg/dL 130-200 Lab Report: Lipid Panel, HEPATIC PANEL, MICROALB/CREAT W/RATIO, HGBA1C, CBC - Hematology leukocyte count, blood 6.9 10^3/MM^3 10*3/mm3 4.6-10.2 erythrocyte (RBC) count 4.81 10^6/MM^3 10*6/mm3 4.69-6.1 hemoglobin, blood 11.9 g/dL 13.5-17.5 hematocrit, blood [...] - Coagulati on international normalized ratio (INR) 1.8 1.0-3.5 prothrombin time (patient) 16.2 SECS s 11.1-13.4 prothrombin time (patient) 19.9 [...] ratio (INR) 1.5 1.0-3.5 prothrombin time (patient) 14.5 SECS s 11.1-13.4 prothrombin time (patient) 15.4 SECS s 11.1-13.4 international normalized ratio (INR) 1.5 1.0-3.5 international normalized ratio (INR) 2.0 1.0-3.5 prothrombin time (patient) 17.8 SECS s 11.1-13.4 Encounters Code Encounter Date Provider Facility CPT-02994 Level 3 Est. Patient 14:21:06 CDT Mitch Ambrose L janelle [facility] CPT-85665 Level 3 Est. Patient 14:52:06 CDT Joe kamara APRN [facility] CPT-27686 Level 3 Est. Patient 09:34:30 DIRECTOR MANUFACTURING ENGINEERING Mitch luis [facility] CPT-69027 Level 3 Est. Patient 09:37:15 CDT Mitch Ambrose L ee [facility] CPT-20605 Level 3 Est. Patient 17:01:00 DIRECTOR MANUFACTURING ENGINEERING Mitch Ambrose L janelle [facility] CPT-33420 Level 3 Est. Patient 13:53:19 DIRECTOR MANUFACTURING ENGINEERING Mitch W L janelle [facility] CPT-46886 Level 3 Est. Patient 19:19:37 DIRECTOR MANUFACTURING ENGINEERING Mitch W L janelle [facility] CPT-57561 Level 3 Est. Patient 13:25:53 DIRECTOR MANUFACTURING ENGINEERING Tavo toure MD [facility] CPT-30266 Level 3 Est. Patient 18:17:28 CDT Mitch W L janelle [facility] CPT-75131 Level 3 Est. Patient 15:22:57 CDT Mitch W L janelle [facility] CPT-39366 Level 3 Est. Patient 18:21:50 CDT Mitch W L janelle [facility] CPT-70923 Level 3 Est. Patient 18:20:38 CDT Mitch W L ee [facility] CPT-70099 Level 3 Est. Patient 15:37:55 CDT Mitch W L ee [facility] CPT-60241 Level 2 Est. Patient 15:54:44 CDT Carmine benton MD [facility] CPT-29543 Level 3 Est. Patient 21:46:01 DIRECTOR MANUFACTURING ENGINEERING Mitch luis [facility] CPT-92505 Level 3 Est. Patient 22:15:50 CDT Mitch Arnol luis [facility] CPT-84678 Level 3 Est. Patient 10:48:15 CDT Mitch luis [facility] CPT-24850 Level 3 Est. Patient 23:20:57 CDT Tavo toure MD [facility] CPT-91531 Level 3 Est. Patient 16:26:13 CDT Mitch Castellano janelle [facility] Procedures Code Procedure Name Date Entry Date Standard Desc ription CPT-84401 PT/INR - LAB USE ONLY 10:34:49 DIRECTOR MANUFACTURING ENGINEERING CPT-73248 Venipuncture Draw Fee 10:34:48 DIRECTOR MANUFACTURING ENGINEERING CPT-94529 PT/INR - LAB USE ONLY 09:22:03 DIRECTOR MANUFACTURING ENGINEERING CPT-59110 Venipuncture Draw Fee 09:22:02 DIRECTOR MANUFACTURING ENGINEERING CPT-97706 Hemoccult IFOBT - LAB USE ONLY 10:27:22 CDT CPT-36592 Venipuncture Draw Fee 08:27:08 CDT CPT-34149 Liver Profile - LAB USE ONLY 08:27:07 CDT 2 CPT-95354 Microalbumin - LAB USE ONLY 08:27:07 CDT 20 25/05/09 CPT-33447 PT/INR - LAB USE ONLY 08:27:07 CDT CPT-32521 HGBA1C - LAB USE ONLY 08:27:07 CDT CPT-69255 CBC - LAB USE ONLY 08:27:07 CDT CPT-54813 Venipuncture Draw Fee 11:09:14 CDT CPT-56470 Venipuncture Draw Fee 08:32:21 DIRECTOR MANUFACTURING ENGINEERING CPT-81210 Venipuncture Draw Fee 09:38:56 DIRECTOR MANUFACTURING ENGINEERING CPT-66981 No Charge Offi Visit 21:36:07 CDT 1 CPT-75794 Venipuncture Draw Fee 10:13:28 DIRECTOR MANUFACTURING ENGINEERING CPT-84465 Venipuncture Draw Fee 08:31:11 CDT CPT-02425 Aspir/Inject Med Joint 18:17:28 CDT CPT-58291 Venipuncture Draw Fee 10:13:30 CDT CPT-19373 Venipuncture Draw Fee 08:31:43 DIRECTOR MANUFACTURING ENGINEERING CPT-JTINJ Joint Injection 18:34:50 CDT CPT-14267 Knee 3V 12:25:09 CDT CPT-33883 Venipuncture Draw Fee 12:15:57 CDT CPT-060 Medical Surveillance Exam 21:31:43 CDT 2011 CPT-35132 Venipuncture Draw Fee 08:32:05 DIRECTOR MANUFACTURING ENGINEERING CPT-OV Office Visit 18:19:06 CDT
--- OUTSIDE RECORDS SUMMARY | 2020-01-18 12:17 | XMS REPORT | Clinical Summary ---
Author Author Admin, Mitch Leon Organization [facility] Address Unknown Phone Unavailable Allergies, Adverse [...] of vessel, [place] or graft EDEMA 782.3 Active Mitch Urbina [...] 1 tablet by mouth daily AMLODIPINE BESYLATE 56623590313 Active Mitch Urbina DO Active MECLIZINE HCL 25 MG TAB 1 po tid 3 days, then 1/2 tab tid 3 days MECLIZINE HCL 01896461871 No Longer Active Corey SEGURA Active ALLOPURINOL 300 MG TABS Take 1 tablet by mouth daily 2 ALLOPURINOL 40897134157 No Longer Active Corey SEGURA Activ e CLONIDINE HCL 0.1 MG TABS 1 po bid 7 days, then 1/2 tab po b id 7 days CLONIDINE HCL 97893007236 No Longer Active Corey SEGURA Active COUMADIN 5 MG TABS 1 tab PO daily WARFARIN SODIUM 08981481726 Active Mitch Urbina DO Active COUMADIN 4 MG TABS 1 tablet daily WARFARIN SODI UM 98797938065 No Longer Active Corey SEGURA Active POLYTRIM 70230-0.1 UNIT/ML-% SOLN 1 drop in affected e ye every 3 hours while awake x 7 days POLYMYXIN B-TRIMETHOPRIM 53869002074 N o Longer Active Corey SEGURA Active LOSARTAN POTASSIUM-HCTZ 100-12.5 MG TABS 1 by mouth da rocky for high blood pressure LOSARTAN POTASSIUM-HCTZ 97516272787 Active Stephy Urbina DO Active LISINOPRIL-HYDROCHLOROTHIAZIDE 20-12.5 MG TABS 1 tab by mouth da rocky LISINOPRIL-HYDROCHLOROTHIAZIDE 59064570913 No Longer Active Mitch luis DO Active LISINOPRIL 20 MG TABS 1 tab po at HS LISINOPRIL 89445438834 No Longer Active Mitch Urbina DO Active COUMADIN 5 MG TABS 1 by mouth every other day WARFARIN SODIUM 83527184100 No Longer Active Mitch Urbina DO Active COUMADIN 6 MG TABS 1 by mouth every other day WARFARIN SODIUM 48106482170 No Longer Active Mitch Urbina DO Active COLCRYS 0.6 MG TABS 1 tab qid prn gout COLCHICINE 11580353099 Active Corey SEGURA Active SIMVASTATIN 40 MG TABS 1 tab daily at bedtime S IMVASTATIN 09413586596 Active Mitch Urbina DO Active SIMVASTATIN 20 MG TABS 1 tab daily at bedtime S IMVASTATIN 25341637634 No Longer Active Mitch Urbina DO Active LOVENOX 100 MG/ML SC SOLN One injection twice a day 09/15/15 ENOXAPARIN SODIUM 82238993998 No Longer Active Carmine D [place] MD A ctive JANUVIA 50 MG TABS Take one by mouth daily DIEGO GLIPTIN PHOSPHATE 97097751804 Active Mitch Urbina DO Active JANUVIA 100 MG TABS 1/2 by mouth every day DIEGO GLIPTIN PHOSPHATE 82955072989 No Longer Active Bijalseth Segal RN Active METFORMIN HCL 500 MG TABS 2 by mouth twice daily METFORMIN HCL 10613819502 Active Corey Arias PA Active GLIMEPIRIDE 4 MG TABS 1 tab po bid GLIMEPIRIDE 339386 73258 Active Mitch Urbina DO Active COLCRYS 0.6 MG TABS 1 po q 6 hours prn gout pain 03/02 COLCHICINE 75254514443 No Longer Active Camila Reese Active LISINOPRIL 5 MG TABS 1 by mouth every day LISIN OPRIL 18012228296 No Longer Active Nguyen Perez Active KLOR-CON 20 MEQ PACK Take one by mouth daily 8 POTASSIUM CHLORIDE 77568316989 No Longer Active Nguyen Perez Active FUROSEMIDE 40 MG TABS 1 by mouth daily FUROSEMI DE 79350980152 No Longer Active Nguyen Perez Active PROVIGIL 200 MG TABS 1/2 tab po q day MODAFINIL 18296 209106 Active Mitch Urbina DO Active PROVIGIL 100 MG TABS Take one by mouth daily MO DAFINIL 40718037554 No Longer Active Mitch Urbina DO Active BACTRIM DS 800-160 MG TAB 1 tab by mouth twice daily 2 TRIMETHOPRIM-SULFAMETHOXAZOLE 17752857885 No Longer Active Renan Hays MD Active FAMOTIDINE 20 MG TABS by mouth twice a day FAMOTI DINE 79075701599 Active Mitch Urbina DO Active ADULT ASPIRIN LOW STRENGTH 81 MG TBDP 1 by mouth every daily ASPIRIN 99602484683 Active Mitch Urbina DO Active METOPROLOL TARTRATE 50 MG TABS 1 by mouth twice daily METOPROLOL TARTRATE 37738203555 Active Curly Coker MD Active BACTRIM DS 800-160 MG TAB 1 tab by mouth twice daily 2 BACTRIM DS 800-160 MG TAB TRIMETHOPRIM-SULFAMETHOXAZOLE Inac tive PROVIGIL 100 MG TABS Take one by mouth daily 4 PROVIGIL 100 MG TABS 752364 MODAFINIL Inactive FUROSEMIDE 40 MG TABS 1 by mouth daily FU ROSEMIDE 40 MG TABS 145868 FUROSEMIDE Inactive KLOR-CON 20 MEQ PACK Take one by mouth daily 8 KLOR-CON 20 MEQ PACK 594283 POTASSIUM CHLORIDE Inactive LISINOPRIL 5 MG TABS 1 by mouth every day LISINOPRIL 5 MG TABS 074436 LISINOPRIL Inactive COLCRYS 0.6 MG TABS 1 po q 6 hours prn gout pain 03/02 COLCRYS 0.6 MG TABS 201877 COLCHICINE Inactive JANUVIA 100 MG TABS 1/2 by mouth every day JANUVI A 100 MG TABS SITAGLIPTIN PHOSPHATE Inactive SIMVASTATIN 20 MG TABS 1 tab daily at bedtime SIMVASTATIN 20 MG TABS 606092 SIMVASTATIN Inactive COUMADIN 6 MG TABS 1 by mouth every other day COUMADIN 6 MG TABS 352044 WARFARIN SODIUM Inactive COUMADIN 5 MG TABS 1 by mouth every other day COUMADIN 5 MG TABS 718501 WARFARIN SODIUM Inactive LISINOPRIL 20 MG TABS 1 tab po at HS KOKI NOPRIL 20 MG TABS 094472 LISINOPRIL Inactive LISINOPRIL-HYDROCHLOROTHIAZIDE 20-12.5 MG TABS 1 tab by mouth da rocky LISINOPRIL-HYDROCHLOROTHIAZIDE 20-12.5 MG TABS 006609 LISINOPRIL-HYDROCHLOROTHIAZIDE Inactive POLYTRIM 48125-3.1 UNIT/ML-% SOLN 1 drop in affected e ye every 3 hours while awake x 7 days POLYTRIM 86324-2.1 UNIT/ML-% SOLN 93140 7 POLYMYXIN B-TRIMETHOPRIM Inactive COUMADIN 4 MG TABS 1 tablet daily COUMADIN 4 MG TABS 551975 WARFARIN SODIUM Inactive CLONIDINE HCL 0.1 MG TABS 1 po bid 7 days, then 1/2 tab po b id 7 days CLONIDINE HCL 0.1 MG TABS 497465 CLONIDINE HCL I nactive ALLOPURINOL 300 MG TABS Take 1 tablet by mouth daily 2 ALLOPURINOL 300 MG TABS 593621 ALLOPURINOL Inactive MECLIZINE HCL 25 MG TAB 1 po tid 3 days, then 1/2 tab tid 3 days MECLIZINE HCL 25 MG TAB 116585 MECLIZINE HCL Inactive LOVENOX 100 MG/ML SC SOLN One injection twice a day 09/15/15 LOVENOX 100 MG/ML SC SOLN 612868 ENOXAPARIN SODIUM Inactive Vital Signs Date Name [...] Acid - Chemistry sodium, serum 136 mmol/L 751-955 1985/07/25 potassium, serum 4.6 mmol/L 3.5-5.2 chloride, serum [...] Ag - Chemistry sodium, serum 141 mmol/L 491-091 8106/07/06 potassium, serum 4.4 mmol/L 3.5-5.2 chloride, serum [...] Panel - Chemistry sodium, serum 137 mmol/L 043-256 8139/11/14 potassium, serum 4.4 mmol/L 3.5-5.2 chloride, serum [...] 8.0 % 4.3-6.0 cholesterol, serum 130 mg/dL 329-690 0529/11/14 triglyceride, serum, fasting 288 mg/dL 30-200 HDL cholesterol, serum 33 mg/dL 32-96 LDL cholesterol, serum 39 mg/dL 0-130 Lab Report: Comp. Metabolic Panel, HGBA1 C, Lipid Panel, Prothrombin Time - Chemistry sodium, serum 136 mmol/L 386-493 6193/12/02 potassium, serum 4.4 mmol/L 3.5-5.2 chloride, serum [...] 7.6 % 4.3-6.0 cholesterol, serum 117 mg/dL 394-133 2314/12/02 triglyceride, serum, fasting 226 mg/dL 30-200 HDL [...] 7.0 % 4.3-6.0 cholesterol, serum 120 mg/dL 634-257 9415/07/06 triglyceride, serum, fasting 186 mg/dL 30-200 HDL [...] ratio (INR) 2.3 1.0-3.5 prothrombin time (patient) 19.9 SECS s 11.1-13.4 international normalized ratio (INR) 2.6 1.0-3.5 Encounters Code Encounter Date Provider Facility CPT-12203 Level 3 Est. Patient 09:37:15 CDT Mitch luis [facility] CPT-83156 Level 3 Est. Patient 17:01:00 CONSUMER ELECTRONIC RETAIL SPECIALIST Mitch luis [facility] CPT-30868 Level 3 Est. Patient 13:53:19 CONSUMER ELECTRONIC RETAIL SPECIALIST Mitch luis [facility] CPT-07767 Level 3 Est. Patient 19:19:37 CONSUMER ELECTRONIC RETAIL SPECIALIST Mitch luis [facility] CPT-97365 Level 3 Est. Patient 13:25:53 CONSUMER ELECTRONIC RETAIL SPECIALIST Tavo toure MD [facility] CPT-13894 Level 3 Est. Patient 18:17:28 CDT Mitch Arnol L janelle [facility] CPT-94275 Level 3 Est. Patient 15:22:57 CDT Mitch Arnol luis [facility] CPT-63066 Level 3 Est. Patient 18:21:50 CDT Mitch luis [facility] CPT-04870 Level 3 Est. Patient 18:20:38 CDT Mitch luis [facility] CPT-51577 Level 3 Est. Patient 15:37:55 CDT Mitch Arnol luis [facility] CPT-78193 Level 2 Est. Patient 15:54:44 CDT Carmine benton MD [facility]-87091 Level 3 Est. Patient 21:46:01 CONSUMER ELECTRONIC RETAIL SPECIALIST Mitch luis [facility] CPT-59021 Level 3 Est. Patient 22:15:50 CDT Mitch luis [facility] CPT-96020 Level 3 Est. Patient 10:48:15 CDT Mitch W L janelle [facility] CPT-59071 Level 3 Est. Patient 23:20:57 CDT Tavo toure MD [facility] CPT-16538 Level 3 Est. Patient 16:26:13 CDT Mitch luis [facility] Procedures Code Procedure Name Date Entry Date Standard Desc ription CPT-47879 Venipuncture Draw Fee 10:13:28 CONSUMER ELECTRONIC RETAIL SPECIALIST CPT-77715 Venipuncture Draw Fee 08:31:11 CDT CPT-44452 Aspir/Inject Med Joint 18:17:28 CDT CPT-47637 Venipuncture Draw Fee 10:13:30 CDT CPT-93020 Venipuncture Draw Fee 08:31:43 CONSUMER ELECTRONIC RETAIL SPECIALIST CPT-JTINJ Joint Injection 18:34:50 CDT CPT-67758 Knee 3V 12:25:09 CDT CPT-32046 Venipuncture Draw Fee 12:15:57 CDT CPT-060 Medical Surveillance Exam 21:31:43 CDT 2011 CPT-17483 Venipuncture Draw Fee 08:32:05 CONSUMER ELECTRONIC RETAIL SPECIALIST CPT-OV Office Visit 18:19:06 CDT
--- OUTSIDE RECORDS SUMMARY | 2020-01-18 12:17 | XMS REPORT | Clinical Summary ---
Author Author Admin, Mitch Leon Organization [facility] [email or web address] Address Unknown Phone Unavailable Allergies, Adverse Reactions, [...] Coronary atherosclerosis of unspecified type of vessel, [place] or graft EDEMA 782.3 Resolved Mitch Urbina [...] by mouth twice a day 2017 FAMOTIDINE 38006178851 No Longer Active Mitch Urbina DO Active COLCRYS 0.6 MG ORAL TABLET 1 tab qid prn gout C OLCHICINE 55547959156 No Longer Active Mitch Urbina DO Active GLIMEPIRIDE 2 MG ORAL TABLET 1 po BID GLIMEPIRID E 52565925571 Active Renee Oconnor RAG WILLOW OPERATOR Active KEFLEX 500 MG ORAL CAPSULE 1 po qid CEPHALEXI N 92237133387 No Longer Active Mitch Urbina DO Active LOSARTAN POTASSIUM 100 MG ORAL TABLET 1 pill by mouth daily, for blood pressure LOSARTAN POTASSIUM 09561649640 Active Ana Wallace Active AMLODIPINE BESYLATE 5 MG ORAL TABLET 1 tablet by mouth daily 201 01/20/04 AMLODIPINE BESYLATE 52500820968 No Longer Active Joe fulton APRN Active MITIGARE 0.6 MG ORAL CAPSULE 2 capsules at onset of go ut pain, then take one capsule at 1 hour if symptoms persist. COLCHICINE 59 129654842 Active Mitch Urbina DO Active COUMADIN 1 MG ORAL TABLET 2 tabs orally daily with the 5mg tab to equal 7mg daily WARFARIN SODIUM 22751470947 Active Ana Wallace Active INVOKANA 100 MG ORAL TABLET 1 tablet orally daily CANAGLIFLOZIN 90406851473 Active Mitch Urbina DO Active MINOXIDIL 2.5 MG ORAL TABLET 1 tablet daily for high blood press ure MINOXIDIL 32775960642 Active Mitch Urbina DO Active MECLIZINE HCL 25 MG ORAL TABLET 1 po tid 3 days, then 1/2 ta b tid 3 days MECLIZINE HCL 35850612812 No Longer Active Corey SEGURA Active ALLOPURINOL 300 MG ORAL TABLET Take 1 tablet by mouth daily 2012 ALLOPURINOL 05042387407 No Longer Active Corey SEGURA Active CLONIDINE HCL 0.1 MG ORAL TABLET 1 po bid 7 days, then 1/2 t ab po bid 7 days CLONIDINE HCL 59426601086 No Longer Active Corey SEGURA Active COUMADIN 5 MG ORAL TABLET 1 tab PO daily WARFAR IN SODIUM 34294739542 Active Mitch Urbina DO Active COUMADIN 4 MG ORAL TABLET 1 tablet daily WARFAR IN SODIUM 05639472243 No Longer Active Corey SEGURA Active POLYTRIM 74512-7.1 UNIT/ML-% OPHTHALMIC SOLUTION 1 rui p in affected eye every 3 hours while awake x 7 days POLYMYXIN B-TRIMETHOP RIM 28743984854 No Longer Active Corey SEGURA Active LOSARTAN POTASSIUM-HCTZ 100-12.5 MG ORAL TABLET 1 by m outh daily for high blood pressure LOSARTAN POTASSIUM-HCTZ 66726898383 No Longer A ctive Mitch Urbina DO Active LISINOPRIL-HYDROCHLOROTHIAZIDE 20-12.5 MG ORAL TABLET 1 tab by m outh daily LISINOPRIL-HYDROCHLOROTHIAZIDE 56599285372 No Longer Active Mitch Urbina DO Active LISINOPRIL 20 MG ORAL TABLET 1 tab po at HS LIS INOPRIL 21120706748 No Longer Active Mitch Urbina DO Active COUMADIN 5 MG ORAL TABLET 1 by mouth every other day 2 WARFARIN SODIUM 23097367934 No Longer Active Mitch Urbina DO Active COUMADIN 6 MG ORAL TABLET 1 by mouth every other day 2 WARFARIN SODIUM 72437797403 No Longer Active Mitch Urbina DO Active SIMVASTATIN 40 MG ORAL TABLET 1 tab daily at bedtime SIMVASTATIN 42690203704 Active Mitch Urbina DO Active SIMVASTATIN 20 MG ORAL TABLET 1 tab daily at bedtime 2 SIMVASTATIN 59201069236 No Longer Active Mitch Urbina DO Active LOVENOX 100 MG/ML SUBCUTANEOUS SOLUTION One injection twice a da y ENOXAPARIN SODIUM 61916555871 No Longer Active Carmine Yusuf MD Active JANUVIA 50 MG ORAL TABLET Take one by mouth daily SITAGLIPTIN PHOSPHATE 36028324724 Active Mitch W Carlitos DO Active JANUVIA 100 MG ORAL TABLET 1/2 by mouth every day 2011 SITAGLIPTIN PHOSPHATE 46142383601 No Longer Active Bijal Segal RN Acti ve METFORMIN HCL 500 MG ORAL TABLET 2 by mouth twice daily METFORMIN HCL 05047606087 Active Mitch Arnol Urbina DO Active COLCRYS 0.6 MG ORAL TABLET 1 po q 6 hours prn gout pain COLCHICINE 71670180831 No Longer Active Camila Reese Active LISINOPRIL 5 MG ORAL TABLET 1 by mouth every day 11/17 LISINOPRIL 05060741138 No Longer Active Nguyen Perez Active KLOR-CON 20 MEQ ORAL PACKET Take one by mouth daily 09/10/08 POTASSIUM CHLORIDE 07492730433 No Longer Active Nguyen Perez Active FUROSEMIDE 40 MG ORAL TABLET 1 by mouth daily F UROSEMIDE 60733469373 No Longer Active Nguyen Perez Active PROVIGIL 200 MG ORAL TABLET 1/2 tab po q day MODA FINIL 44438456358 Active Renee Elvin BURNETTN Active PROVIGIL 100 MG ORAL TABLET Take one by mouth daily 08/20/04 MODAFINIL 95924257679 No Longer Active Mitch Urbina DO Active BACTRIM DS 800-160 MG ORAL TABLET 1 tab by mouth twice daily 201 10/19/09 TRIMETHOPRIM-SULFAMETHOXAZOLE 46415072136 No Longer Active C alberto Hays MD Active ADULT ASPIRIN LOW STRENGTH 81 MG ORAL TABLET DISINTEGR ATING 1 by mouth every daily ASPIRIN 39897882594 Active Mitch Urbina DO Ac tive METOPROLOL TARTRATE 50 MG ORAL TABLET 1 by mouth twice daily METOPROLOL TARTRATE 34966013082 Active Mitch Urbina DO Active BACTRIM DS 800-160 MG ORAL TABLET 1 tab by mouth twice daily 201 10/19/09 BACTRIM DS 800-160 MG ORAL TABLET 992794 TRIMETHOPRIM-SULFAMETHOXAZOLE Inactive PROVIGIL 100 MG ORAL TABLET Take one by mouth daily 08/20/04 PROVIGIL 100 MG ORAL TABLET 160663 MODAFINIL Inactive FUROSEMIDE 40 MG ORAL TABLET 1 by mouth daily FUROSEMIDE 40 MG ORAL TABLET 258969 FUROSEMIDE Inactive KLOR-CON 20 MEQ ORAL PACKET Take one by mouth daily 09/10/08 KLOR- CON 20 MEQ ORAL PACKET 0098615 POTASSIUM CHLORIDE Inactive LISINOPRIL 5 MG ORAL TABLET 1 by mouth every day 11/17 LISINOPRIL 5 MG ORAL TABLET 882700 LISINOPRIL Inactive COLCRYS 0.6 MG ORAL TABLET 1 po q 6 hours prn gout pain COLCRYS 0.6 MG ORAL TABLET 286854 COLCHICINE Inactive JANUVIA 100 MG ORAL TABLET 1/2 by mouth every day 2011 JANUVIA 100 MG ORAL TABLET SITAGLIPTIN PHOSPHATE Inactive SIMVASTATIN 20 MG ORAL TABLET 1 tab daily at bedtime 2 SIMVASTATIN 20 MG ORAL TABLET 279580 SIMVASTATIN Inactive COUMADIN 6 MG ORAL TABLET 1 by mouth every other day COUMADIN 6 MG ORAL TABLET 112150 WARFARIN SODIUM Inactive COUMADIN 5 MG ORAL TABLET 1 by mouth every other day COUMADIN 5 MG ORAL TABLET 342414 WARFARIN SODIUM Inactive LISINOPRIL 20 MG ORAL TABLET 1 tab po at HS LISINOPRIL 20 MG ORAL TABLET 160147 LISINOPRIL Inactive LISINOPRIL-HYDROCHLOROTHIAZIDE 20-12.5 MG ORAL TABLET 1 tab by m outh daily LISINOPRIL-HYDROCHLOROTHIAZIDE 20-12.5 MG ORAL TABLET 339718 LISINOPRIL-HYDROCHLOROTHIAZIDE Inactive POLYTRIM 82734-1.1 UNIT/ML-% OPHTHALMIC SOLUTION 1 rui p in affected eye every 3 hours while awake x 7 days POLYTRIM 1000 0-0.1 UNIT/ML-% OPHTHALMIC SOLUTION 130952 POLYMYXIN B-TRIMETHOPRIM Inactive COUMADIN 4 MG ORAL TABLET 1 tablet daily COUMADIN 4 MG ORAL TABLET 275208 WARFARIN SODIUM Inactive CLONIDINE HCL 0.1 MG ORAL TABLET 1 po bid 7 days, then 1/2 t ab po bid 7 days CLONIDINE HCL 0.1 MG ORAL TABLET 893096 CLONIDIN E HCL Inactive ALLOPURINOL 300 MG ORAL TABLET Take 1 tablet by mouth daily 2012 ALLOPURINOL 300 MG ORAL TABLET 251138 ALLOPURINOL I nactive MECLIZINE HCL 25 MG ORAL TABLET 1 po tid 3 days, then 1/2 ta b tid 3 days MECLIZINE HCL 25 MG ORAL TABLET 933512 MECLIZINE HCL Inactive AMLODIPINE BESYLATE 5 MG ORAL TABLET 1 tablet by mouth daily 201 01/20/04 AMLODIPINE BESYLATE 5 MG ORAL TABLET 110070 AMLODIPINE BESYLATE Inactive KEFLEX 500 MG ORAL CAPSULE 1 po qid K EFLEX 500 MG ORAL CAPSULE 781032 CEPHALEXIN Inactive COLCRYS 0.6 MG ORAL TABLET 1 tab qid prn gout COLCRYS 0.6 MG ORAL TABLET 179528 COLCHICINE Inactive FAMOTIDINE 20 MG ORAL TABLET by mouth twice a day 2017 FAMOTIDINE 20 MG ORAL TABLET 835041 FAMOTIDINE Inactive LOVENOX 100 MG/ML SUBCUTANEOUS SOLUTION One injection twice a da y LOVENOX 100 MG/ML SUBCUTANEOUS SOLUTION 980256 ENOXAPAR IN SODIUM Inactive Vital Signs Date [...] - Chem istry sodium, serum 139 mmol/L 965-776 9076/07/17 potassium, serum 4.2 mmol/L 3.5-5.2 chloride, serum 102 mmol/L 98-107 carbon dioxide, venous blood 28.9 mmol/L 21.0-32 .0 blood glucose 211 mg/dL 65-110 calcium, serum 10.6 mg/dL 8.5-10.1 urea nitrogen, blood 29 mg/dL 7-18 creatinine, serum 1.24 mg/dL 0.60-1.30 sodium, serum 141 mmol/L 216-369 2917/08/07 potassium, serum 4.5 mmol/L 3.5-5.2 chloride, serum [...] ... - Chemistry sodium, serum 144 mmol/L 743-787 7774/06/12 carbon dioxide, venous blood 26.6 mmol/L 21.0-32 [...] HGBA1C - Chemistry cholesterol, serum 136 mg/dL 151-987 8312/12/06 triglyceride, serum, fasting 247 mg/dL 30-200 HDL cholesterol, serum 41 mg/dL 32-60 LDL cholesterol, serum 46 mg/dL 0-130 aspartate aminotransferase (SGOT), serum 22 U/L 15-37 alanine aminotransferase (SGPT), serum 30 U/L 12-78 bilirubin, serum, total 0.80 mg/dL 0.00-1.00 hemoglobin A1C, blood, as % of total hemoglobin 6.4 % 4.3-6.0 Encounters Code Encounter Date Provider Facility CPT-06743 Level 3 Est. Patient 18:25:53 CDT Mitch luis [facility] CPT-72630 Level 3 Est. Patient 19:43:34 CDT Mitch luis [facility] CPT-48116 Level 4 Est. Patient 09:30:18 CDT Mitch luis [facility] CPT-43090 Level 3 Est. Patient 15:10:14 CDT Joe kamara [facility] CPT-56906 Level 3 Est. Patient 15:03:46 CDT Joe kamara [facility] CPT-90528 Level 3 Est. Patient 14:21:06 CDT Mitch luis [facility] CPT-66072 Level 3 Est. Patient 14:52:06 CD[facility] Est[facility] Patient 09:34:30 CLINICAL CARE MANAGER Mitch luis [facility]-97167 Level 3 Est. Patient 09:37:15 CDT Mitch Ambrose L janelle [facility]-35005 Level 3 Est. Patient 17:01:00 CLINICAL CARE MANAGER Mitch Ambrose L janelle [facility] CPT-72724 Level 3 Est. Patient 13:53:19 CLINICAL CARE MANAGER Mitch W L janelle [facility] CPT-39788 Level 3 Est. Patient 19:19:37 CLINICAL CARE MANAGER Mitch W L janelle [facility] CPT-12109 Level 3 Est. Patient 13:25:53 CLINICAL CARE MANAGER Tavo toure MD [facility]-59386 Level 3 Est. Patient 18:17:28 CDT Mitch luis [facility] CPT-50115 Level 3 Est. Patient 15:22:57 CDT Mitch W L janelle [facility]-76718 Level 3 Est. Patient 18:21:50 CDT Mitch Arnol L janelle [facility] CPT-39039 Level 3 Est. Patient 18:20:38 CDT Mitch Arnol L janelle [facility]-99171 Level 3 Est. Patient 15:37:55 CDT Mitch W L janelle [facility] CPT-19651 Level 2 Est. Patient 15:54:44 CDT Carmine benton MD [facility]-40411 Level 3 Est. Patient 21:46:01 CLINICAL CARE MANAGER Mitch W L janelle [facility]-24749 Level 3 Est. Patient 22:15:50 CDT Mitch W L janelle [facility] CPT-84598 Level 3 Est. Patient 10:48:15 CDT Mitch luis [facility] CPT-96368 Level 3 Est. Patient 23:20:57 CDT Tavo toure MD [facility] CPT-32931 Level 3 Est. Patient 16:26:13 CDT Mitch luis [facility] Procedures Code Procedure Name Date Entry Date Standard Desc ription CPT-JTINJ Asp/Joint Injection 18:47:02 CDT CPT-10883 Venipuncture Draw Fee 09:26:17 CDT CPT-57779 PT/INR - LAB USE ONLY 13:32:49 CLINICAL CARE MANAGER CPT-22709 Venipuncture Draw Fee 13:32:49 CLINICAL CARE MANAGER CPT-05187 PT/INR - LAB USE ONLY 10:34:49 CLINICAL CARE MANAGER CPT-34220 Venipuncture Draw Fee 10:34:48 CLINICAL CARE MANAGER CPT-82795 PT/INR - LAB USE ONLY 09:22:03 CLINICAL CARE MANAGER CPT-08927 Venipuncture Draw Fee 09:22:02 CLINICAL CARE MANAGER CPT-38765 Hemoccult IFOBT - LAB USE ONLY 10:27:22 CDT CPT-00971 Venipuncture Draw Fee 08:27:08 CDT CPT-09241 Liver Profile - LAB USE ONLY 08:27:07 CDT 2 CPT-92348 Microalbumin - LAB USE ONLY 08:27:07 CDT 20 25/05/09 CPT-57271 PT/INR - LAB USE ONLY 08:27:07 CDT CPT-42227 HGBA1C - LAB USE ONLY 08:27:07 CDT CPT-57333 CBC - LAB USE ONLY 08:27:07 CDT CPT-38091 Venipuncture Draw Fee 11:09:14 CDT CPT-62031 Venipuncture Draw Fee 08:32:21 CLINICAL CARE MANAGER CPT-86436 Venipuncture Draw Fee 09:38:56 CLINICAL CARE MANAGER CPT-19667 No Charge Offi Visit 21:36:07 CDT 1 CPT-54969 Venipuncture Draw Fee 10:13:28 CLINICAL CARE MANAGER CPT-36929 Venipuncture Draw Fee 08:31:11 CDT CPT-86112 Aspir/Inject Med Joint 18:17:28 CDT CPT-28806 Venipuncture Draw Fee 10:13:30 CDT CPT-00091 Venipuncture Draw Fee 08:31:43 CLINICAL CARE MANAGER CPT-JTINJ Joint Injection 18:34:50 CDT CPT-65992 Knee 3V 12:25:09 CDT CPT-33734 Venipuncture Draw Fee 12:15:57 CDT CPT-060 Medical Surveillance Exam 21:31:43 CDT 2011 CPT-21540 Venipuncture Draw Fee 08:32:05 CLINICAL CARE MANAGER CPT-OV Office Visit 18:19:06 CDT
--- OUTSIDE RECORDS SUMMARY | 2020-01-18 12:18 | XMS REPORT | Clinical Summary ---
Author Author Admin, Mitch Leon Organization [facility] Address Unknown Phone Unavailable Allergies, Adverse [...] Coronary atherosclerosis of unspecified type of vessel, [place] or graft EDEMA 782.3 Resolved Mitch Urbina [...] ( 6mg total ) 2015 WARFARIN SODIUM 45851216074 Active Jannette Alcides RMA Act juan INVOKANA 100 MG ORAL TABS 1 tablet orally daily CANAGLIFLOZIN 31227144794 Active Kathie Juan RPT,RMA Active MINOXIDIL 2.5 MG TABS 1 tablet daily for high blood pressure 10/23 MINOXIDIL 41332512727 Active Mitch Urbina DO Active AMLODIPINE BESYLATE 5 MG TABS 1 tablet by mouth daily AMLODIPINE BESYLATE 96698493866 Active Domi Rivera MA Active MECLIZINE HCL 25 MG TAB 1 po tid 3 days, then 1/2 tab tid 3 days MECLIZINE HCL 54433508886 No Longer Active Corey SEGURA Active ALLOPURINOL 300 MG TABS Take 1 tablet by mouth daily 2 ALLOPURINOL 14353343104 No Longer Active Corey SEGURA Activ e CLONIDINE HCL 0.1 MG TABS 1 po bid 7 days, then 1/2 tab po b id 7 days CLONIDINE HCL 30066651062 No Longer Active Corey SEGURA Active COUMADIN 5 MG TABS 1 tab PO daily WARFARIN SODIUM 08679769192 Active Domi Rivera MA Active COUMADIN 4 MG TABS 1 tablet daily WARFARIN SODI UM 15379761502 No Longer Active Corey SEGURA Active POLYTRIM 16711-4.1 UNIT/ML-% SOLN 1 drop in affected e ye every 3 hours while awake x 7 days POLYMYXIN B-TRIMETHOPRIM 84014362048 N o Longer Active Corey SEGURA Active LOSARTAN POTASSIUM-HCTZ 100-12.5 MG TABS 1 by mouth da [place] for high blood pressure LOSARTAN POTASSIUM-HCTZ 10337247794 Active Domi Rivera MA Active LISINOPRIL-HYDROCHLOROTHIAZIDE 20-12.5 MG TABS 1 tab by mouth da [place] LISINOPRIL-HYDROCHLOROTHIAZIDE 73216846572 No Longer Active Mitch luis DO Active LISINOPRIL 20 MG TABS 1 tab po at HS LISINOPRIL 87825727341 No Longer Active Mitch Urbina DO Active COUMADIN 5 MG TABS 1 by mouth every other day WARFARIN SODIUM 32247226787 No Longer Active Mitch Urbina DO Active COUMADIN 6 MG TABS 1 by mouth every other day WARFARIN SODIUM 79609516152 No Longer Active Mitch Urbina DO Active COLCRYS 0.6 MG TABS 1 tab qid prn gout COLCHICINE 41279794221 Active Corey SEGURA Active SIMVASTATIN 40 MG TABS 1 tab daily at bedtime S IMVASTATIN 15885647351 Active Domi Rivera MA Active SIMVASTATIN 20 MG TABS 1 tab daily at bedtime S IMVASTATIN 53239591083 No Longer Active Mitch Urbina DO Active LOVENOX 100 MG/ML SC SOLN One injection twice a day 09/15/15 ENOXAPARIN SODIUM 13463311447 No Longer Active Carmine Navarrete ctive JANUVIA 50 MG TABS Take one by mouth daily DIEGO GLIPTIN PHOSPHATE 27540438707 Active Domi Rivera MA Active JANUVIA 100 MG TABS 1/2 by mouth every day DIEGO GLIPTIN PHOSPHATE 98222911527 No Longer Active Bijal Segal RN Active METFORMIN HCL 500 MG TABS 2 by mouth twice daily METFORMIN HCL 24509618248 Active Domi Rivera MA Active GLIMEPIRIDE 4 MG TABS 1 tab po bid GLIMEPIRIDE 298616 40966 Active Domi Rivera MA Active COLCRYS 0.6 MG TABS 1 po q 6 hours prn gout pain 03/02 COLCHICINE 89134251909 No Longer Active Camila Reese Active LISINOPRIL 5 MG TABS 1 by mouth every day LISIN OPRIL 67247804862 No Longer Active Nguyen Perez Active KLOR-CON 20 MEQ PACK Take one by mouth daily 8 POTASSIUM CHLORIDE 43737257096 No Longer Active Nguyen Perez Active FUROSEMIDE 40 MG TABS 1 by mouth daily FUROSEMI DE 10552990528 No Longer Active Nguyen Perze Active PROVIGIL 200 MG TABS 1/2 tab po q day MODAFINIL 00389 060743 Active Domi Rivera MA Active PROVIGIL 100 MG TABS Take one by mouth daily MO DAFINIL 41761561915 No Longer Active Mitch Urbina DO Active BACTRIM DS 800-160 MG TAB 1 tab by mouth twice daily 2 TRIMETHOPRIM-SULFAMETHOXAZOLE 12695004527 No Longer Active Renan Hays MD Active FAMOTIDINE 20 MG TABS by mouth twice a day FAMOTI DINE 42511469577 Active Mitch Urbina DO Active ADULT ASPIRIN LOW STRENGTH 81 MG TBDP 1 by mouth every daily ASPIRIN 26739750101 Active Mitch Urbina DO Active METOPROLOL TARTRATE 50 MG TABS 1 by mouth twice daily METOPROLOL TARTRATE 50320234613 Active Domi Rivera MA Active BACTRIM DS 800-160 MG TAB 1 tab by mouth twice daily 2 BACTRIM DS 800-160 MG TAB 712099 TRIMETHOPRIM-SULFAMETHOXAZOLE Inac tive PROVIGIL 100 MG TABS Take one by mouth daily 4 PROVIGIL 100 MG TABS 724484 MODAFINIL Inactive FUROSEMIDE 40 MG TABS 1 by mouth daily FU ROSEMIDE 40 MG TABS 303009 FUROSEMIDE Inactive KLOR-CON 20 MEQ PACK Take one by mouth daily 8 KLOR-CON 20 MEQ PACK 983773 POTASSIUM CHLORIDE Inactive LISINOPRIL 5 MG TABS 1 by mouth every day LISINOPRIL 5 MG TABS 339000 LISINOPRIL Inactive COLCRYS 0.6 MG TABS 1 po q 6 hours prn gout pain 03/02 COLCRYS 0.6 MG TABS 550410 COLCHICINE Inactive JANUVIA 100 MG TABS 1/2 by mouth every day JANUVI A 100 MG TABS SITAGLIPTIN PHOSPHATE Inactive SIMVASTATIN 20 MG TABS 1 tab daily at bedtime SIMVASTATIN 20 MG TABS 105443 SIMVASTATIN Inactive COUMADIN 6 MG TABS 1 by mouth every other day COUMADIN 6 MG TABS 947917 WARFARIN SODIUM Inactive COUMADIN 5 MG TABS 1 by mouth every other day COUMADIN 5 MG TABS 019117 WARFARIN SODIUM Inactive LISINOPRIL 20 MG TABS 1 tab po at HS KOKI NOPRIL 20 MG TABS 570438 LISINOPRIL Inactive LISINOPRIL-HYDROCHLOROTHIAZIDE 20-12.5 MG TABS 1 tab by mouth da rocky LISINOPRIL-HYDROCHLOROTHIAZIDE 20-12.5 MG TABS 455303 LISINOPRIL-HYDROCHLOROTHIAZIDE Inactive POLYTRIM 29038-3.1 UNIT/ML-% SOLN 1 drop in affected e ye every 3 hours while awake x 7 days POLYTRIM 61271-0.1 UNIT/ML-% SOLN 37242 7 POLYMYXIN B-TRIMETHOPRIM Inactive COUMADIN 4 MG TABS 1 tablet daily COUMADIN 4 MG TABS 709070 WARFARIN SODIUM Inactive CLONIDINE HCL 0.1 MG TABS 1 po bid 7 days, then 1/2 tab po b id 7 days CLONIDINE HCL 0.1 MG TABS 184794 CLONIDINE HCL I nactive ALLOPURINOL 300 MG TABS Take 1 tablet by mouth daily 2 ALLOPURINOL 300 MG TABS 007278 ALLOPURINOL Inactive MECLIZINE HCL 25 MG TAB 1 po tid 3 days, then 1/2 tab tid 3 days MECLIZINE HCL 25 MG TAB 558012 MECLIZINE HCL Inactive LOVENOX 100 MG/ML SC SOLN One injection twice a day 09/15/15 LOVENOX 100 MG/ML SC SOLN 028217 ENOXAPARIN SODIUM Inactive Vital Signs Date Name [...] Range Description Chart Maintenance: Hemoccult added to [facility] - Chemistry occult blood, stool (E&M) Positive [...] Ag - Chemistry sodium, serum 141 mmol/L 943-350 9512/07/06 potassium, serum 4.4 mmol/L 3.5-5.2 chloride, serum [...] - Chem istry sodium, serum 136 mmol/L 483-355 3919/01/14 carbon dioxide, venous blood 25.4 mmol/L 21.0-32 [...] 7.0 % 4.3-6.0 cholesterol, serum 120 mg/dL 903-384 6685/07/06 triglyceride, serum, fasting 186 mg/dL 30-200 HDL [...] 1.0-3.5 Encounters Code Encounter Date Provider Facility CPT-61344 Level 3 Est. Patient 09:34:30 BUSINESS INTELLIGENCE ARCHITECT Mitch Ambrose L janelle [facility] CPT-99581 Level 3 Est. Patient 09:37:15 CDT Mitch W L janelle [facility] CPT-38379 Level 3 Est. Patient 17:01:00 BUSINESS INTELLIGENCE ARCHITECT Mitch W L janelle [facility] CPT-93738 Level 3 Est. Patient 13:53:19 BUSINESS INTELLIGENCE ARCHITECT Mitch W L janelle [facility] CPT-98174 Level 3 Est. Patient 19:19:37 BUSINESS INTELLIGENCE ARCHITECT Mitch W L janelle [facility] CPT-63431 Level 3 Est. Patient 13:25:53 BUSINESS INTELLIGENCE ARCHITECT Tavo toure MD [facility] CPT-95949 Level 3 Est. Patient 18:17:28 CDT Mitch W L janelle [facility] CPT-85390 Level 3 Est. Patient 15:22:57 CDT Mitch Arnol L janelle [facility] CPT-15572 Level 3 Est. Patient 18:21:50 CDT Mitch W L ee [facility] CPT-83290 Level 3 Est. Patient 18:20:38 CDT Mitch W L ee [facility] CPT-04355 Level 3 Est. Patient 15:37:55 CDT Mitch W L ee [facility] CPT-70945 Level 2 Est. Patient 15:54:44 CDT Carmine benton MD [facility] CPT-76571 Level 3 Est. Patient 21:46:01 BUSINESS INTELLIGENCE ARCHITECT Mitch W L ee [facility] CPT-54916 Level 3 Est. Patient 22:15:50 CDT Mitch luis [facility] CPT-08610 Level 3 Est. Patient 10:48:15 CDT Mitch luis [facility] CPT-97961 Level 3 Est. Patient 23:20:57 CDT Tavo toure MD [facility] CPT-17758 Level 3 Est. Patient 16:26:13 CDT Mitch luis [facility] Procedures Code Procedure Name Date Entry Date Standard Desc ription CPT-42545 Venipuncture Draw Fee 08:32:21 BUSINESS INTELLIGENCE ARCHITECT CPT-93983 Venipuncture Draw Fee 09:38:56 BUSINESS INTELLIGENCE ARCHITECT CPT-70998 No Charge Offi Visit 21:36:07 CDT 1 CPT-39458 Venipuncture Draw Fee 10:13:28 BUSINESS INTELLIGENCE ARCHITECT CPT-03168 Venipuncture Draw Fee 08:31:11 CDT CPT-98846 Aspir/Inject Med Joint 18:17:28 CDT CPT-23379 Venipuncture Draw Fee 10:13:30 CDT CPT-60423 Venipuncture Draw Fee 08:31:43 BUSINESS INTELLIGENCE ARCHITECT CPT-JTINJ Joint Injection 18:34:50 CDT CPT-42162 Knee 3V 12:25:09 CDT CPT-78839 Venipuncture Draw Fee 12:15:57 CDT CPT-060 Medical Surveillance Exam 21:31:43 CDT 2011 CPT-93754 Venipuncture Draw Fee 08:32:05 BUSINESS INTELLIGENCE ARCHITECT CPT-OV Office Visit 18:19:06 CDT
--- OUTSIDE RECORDS SUMMARY | 2020-01-18 12:18 | XMS REPORT | Clinical Summary ---
Author Author Admin, Mitch Leon Organization [facility] Address Unknown Phone Unavailable Allergies, Adverse Reactions, [...] Coronary atherosclerosis of unspecified type of vessel, [place] or graft EDEMA 782.3 Resolved Mitch Urbina [...] malaise and fatigue Cough, chronic 786.2 Resolved Mithc Arnol Urbina DO Cough Sebaceous cyst, infected [...] tab to equal 7mg daily WARFARIN SODIUM 56520473149 Active Mitch Urbina DO Active COLCRYS 0.6 MG TABS 1 tab qid prn gout COLCHICINE 75609047353 Active Kathie Juan RPT,RMA Active INVOKANA 100 MG ORAL TABS 1 tablet orally daily CANAGLIFLOZIN 13624884717 Active Mitch Urbina DO Active MINOXIDIL 2.5 MG TABS 1 tablet daily for high blood pressure 10/23 MINOXIDIL 07833731726 Active Domi Rivera MA Active AMLODIPINE BESYLATE 5 MG TABS 1 tablet by mouth daily AMLODIPINE BESYLATE 83618534982 Active Mitch Urbina DO Active MECLIZINE HCL 25 MG TAB 1 po tid 3 days, then 1/2 tab tid 3 days MECLIZINE HCL 84129013818 No Longer Active Corey SEGURA Active ALLOPURINOL 300 MG TABS Take 1 tablet by mouth daily 2 ALLOPURINOL 09709386433 No Longer Active Corey SEGURA Activ e CLONIDINE HCL 0.1 MG TABS 1 po bid 7 days, then 1/2 tab po b id 7 days CLONIDINE HCL 24567925885 No Longer Active Corey SEGURA Active COUMADIN 5 MG TABS 1 tab PO daily WARFARIN SODIUM 63591844099 Active Mitch Urbina DO Active COUMADIN 4 MG TABS 1 tablet daily WARFARIN SODI UM 57796863148 No Longer Active Corey SEGURA Active POLYTRIM 21307-7.1 UNIT/ML-% SOLN 1 drop in affected e ye every 3 hours while awake x 7 days POLYMYXIN B-TRIMETHOPRIM 23885264457 N o Longer Active Corey SEGURA Active LOSARTAN POTASSIUM-HCTZ 100-12.5 MG TABS 1 by mouth da rocky for high blood pressure LOSARTAN POTASSIUM-HCTZ 27649842380 Active Stephy Urbina DO Active LISINOPRIL-HYDROCHLOROTHIAZIDE 20-12.5 MG TABS 1 tab by mouth da rocky LISINOPRIL-HYDROCHLOROTHIAZIDE 35854504546 No Longer Active Mitch luis DO Active LISINOPRIL 20 MG TABS 1 tab po at HS LISINOPRIL 81963052385 No Longer Active Mitch Urbina DO Active COUMADIN 5 MG TABS 1 by mouth every other day WARFARIN SODIUM 65074060374 No Longer Active Mitch Urbina DO Active COUMADIN 6 MG TABS 1 by mouth every other day WARFARIN SODIUM 00768584108 No Longer Active Mitch W [place] DO Active SIMVASTATIN 40 MG TABS 1 tab daily at bedtime S IMVASTATIN 12149647368 Active Mitch Urbina DO Active SIMVASTATIN 20 MG TABS 1 tab daily at bedtime S IMVASTATIN 99573829942 No Longer Active Mitch Urbina DO Active LOVENOX 100 MG/ML SC SOLN One injection twice a day 09/15/15 ENOXAPARIN SODIUM 43145933009 No Longer Active Carmine Navarrete ctive JANUVIA 50 MG TABS Take one by mouth daily DIEGO GLIPTIN PHOSPHATE 66166537703 Active Mitch Urbina DO Active JANUVIA 100 MG TABS 1/2 by mouth every day DIEGO GLIPTIN PHOSPHATE 63008348122 No Longer Active Bijal Segal RN Active METFORMIN HCL 500 MG TABS 2 by mouth twice daily METFORMIN HCL 50048163707 Active Mitch Urbina DO Active GLIMEPIRIDE 4 MG TABS 1 tab po bid GLIMEPIRIDE 810851 09459 Active Mitch Urbina DO Active COLCRYS 0.6 MG TABS 1 po q 6 hours prn gout pain 03/02 COLCHICINE 99600402527 No Longer Active Camila Reese Active LISINOPRIL 5 MG TABS 1 by mouth every day LISIN OPRIL 66762450223 No Longer Active Nguyen Perez Active KLOR-CON 20 MEQ PACK Take one by mouth daily 8 POTASSIUM CHLORIDE 98689277291 No Longer Active Nguyen Perez Active FUROSEMIDE 40 MG TABS 1 by mouth daily FUROSEMI DE 35126641992 No Longer Active Nguyen Perez Active PROVIGIL 200 MG TABS 1/2 tab po q day MODAFINIL 32089 913409 Active Kathie Juan RPT,RMA Active PROVIGIL 100 MG TABS Take one by mouth daily MO DAFINIL 26168001512 No Longer Active Mitch Urbina DO Active BACTRIM DS 800-160 MG TAB 1 tab by mouth twice daily 2 TRIMETHOPRIM-SULFAMETHOXAZOLE 94496795902 No Longer Active Renan Hays MD Active FAMOTIDINE 20 MG TABS by mouth twice a day FAMOTI DINE 63195791778 Active Mitch Urbina DO Active ADULT ASPIRIN LOW STRENGTH 81 MG TBDP 1 by mouth every daily ASPIRIN 98540290913 Active Mitch Urbina DO Active METOPROLOL TARTRATE 50 MG TABS 1 by mouth twice daily METOPROLOL TARTRATE 83707456155 Active Mitch Urbina DO Active BACTRIM DS 800-160 MG TAB 1 tab by mouth twice daily 2 BACTRIM DS 800-160 MG TAB 377980 TRIMETHOPRIM-SULFAMETHOXAZOLE Inac tive PROVIGIL 100 MG TABS Take one by mouth daily 4 PROVIGIL 100 MG TABS 665660 MODAFINIL Inactive FUROSEMIDE 40 MG TABS 1 by mouth daily FU ROSEMIDE 40 MG TABS 014364 FUROSEMIDE Inactive KLOR-CON 20 MEQ PACK Take one by mouth daily 8 KLOR-CON 20 MEQ PACK 448972 POTASSIUM CHLORIDE Inactive LISINOPRIL 5 MG TABS 1 by mouth every day LISINOPRIL 5 MG TABS 516159 LISINOPRIL Inactive COLCRYS 0.6 MG TABS 1 po q 6 hours prn gout pain 03/02 COLCRYS 0.6 MG TABS 220257 COLCHICINE Inactive JANUVIA 100 MG TABS 1/2 by mouth every day JANUVI A 100 MG TABS SITAGLIPTIN PHOSPHATE Inactive SIMVASTATIN 20 MG TABS 1 tab daily at bedtime SIMVASTATIN 20 MG TABS 788376 SIMVASTATIN Inactive COUMADIN 6 MG TABS 1 by mouth every other day COUMADIN 6 MG TABS 192423 WARFARIN SODIUM Inactive COUMADIN 5 MG TABS 1 by mouth every other day COUMADIN 5 MG TABS 203869 WARFARIN SODIUM Inactive LISINOPRIL 20 MG TABS 1 tab po at HS KOKI NOPRIL 20 MG TABS 952454 LISINOPRIL Inactive LISINOPRIL-HYDROCHLOROTHIAZIDE 20-12.5 MG TABS 1 tab by mouth da rocky LISINOPRIL-HYDROCHLOROTHIAZIDE 20-12.5 MG TABS 460008 LISINOPRIL-HYDROCHLOROTHIAZIDE Inactive POLYTRIM 46002-8.1 UNIT/ML-% SOLN 1 drop in affected e ye every 3 hours while awake x 7 days POLYTRIM 32252-5.1 UNIT/ML-% SOLN 07327 7 POLYMYXIN B-TRIMETHOPRIM Inactive COUMADIN 4 MG TABS 1 tablet daily COUMADIN 4 MG TABS 453692 WARFARIN SODIUM Inactive CLONIDINE HCL 0.1 MG TABS 1 po bid 7 days, then 1/2 tab po b id 7 days CLONIDINE HCL 0.1 MG TABS 881878 CLONIDINE HCL I nactive ALLOPURINOL 300 MG TABS Take 1 tablet by mouth daily 2 ALLOPURINOL 300 MG TABS 583412 ALLOPURINOL Inactive MECLIZINE HCL 25 MG TAB 1 po tid 3 days, then 1/2 tab tid 3 days MECLIZINE HCL 25 MG TAB 990291 MECLIZINE HCL Inactive LOVENOX 100 MG/ML SC SOLN One injection twice a day 20 09/15/15 LOVENOX 100 MG/ML SC SOLN 863978 ENOXAPARIN SODIUM Inactive Vital Signs Date Name [...] Range Description Chart Maintenance: hemoccult added to [facility] - Chemistry occult blood, stool (E&M) Positive Lab Report: CBC - Hematology hematocrit, blood 37.3 % 41.0-53.0 mean corpuscular volume, RBC 82 fL 80-97 mean corpuscular hemoglobin, RBC 26.6 pg 27. 0-31.2 mean corpuscular hemoglobin concentration, RBC 32.6 G/DL % 31.8-35.4 red blood cell distribution width 18.0 % 11 .6-14.8 platelet count 276 10^3/MM^3 10*3/mm3 053-106 7342/01/14 hemoglobin, blood 12.2 g/dL 13.5-17.5 erythrocyte (RBC) count 4.57 10^6/MM^3 10*6/mm3 4.69-6.1 3 leukocyte count, blood 7.1 10^3/MM^3 10*3/mm3 4.6-10.2 Lab Report: Comp. Metabolic Panel - Chem istry sodium, serum 136 mmol/L 260-204 3458/01/14 carbon dioxide, venous blood 25.4 mmol/L 21.0-32 [...] CBC - Chemistry cholesterol, serum 136 mg/dL 198-780 7506/08/09 triglyceride, serum, fasting 187 mg/dL 30-200 HDL [...] (INR) 2.4 1.0-3.5 international normalized ratio (INR) 2.4 1.0-3.5 prothrombin time (patient) 18.9 SECS s 11.1-13.4 international normalized ratio (INR) 1.8 1.0-3.5 prothrombin time (patient) 15.8 SECS s 11.1-13.4 international normalized ratio (INR) 1.8 1.0-3.5 prothrombin time (patient) 16.2 SECS s 11.1-13.4 prothrombin time (patient) 15.4 SECS s 11.1-13.4 international normalized ratio (INR) 1.5 1.0-3.5 prothrombin time (patient) 14.5 SECS s 11.1-13.4 international normalized ratio (INR) 1.5 1.0-3.5 prothrombin time (patient) 16.9 SECS s 11.1-13.4 international normalized ratio (INR) 2.0 1.0-3.5 Encounters Code Encounter Date Provider Facility CPT-44286 Level 3 Est. Patient 14:21:06 CDT Mitch luis [facility] CPT-62353 Level 3 Est. Patient 14:52:06 CD[facility] Level 3 Est. Patient 09:34:30 ENVIRONMENTAL STUDIES FACULTY MEMBER Mitch luis [facility]-85460 Level 3 Est. Patient 09:37:15 CDT Mitch luis [facility] CPT-37297 Level 3 Est. Patient 17:01:00 ENVIRONMENTAL STUDIES FACULTY MEMBER Mitch luis [facility] CPT-75140 Level 3 Est. Patient 13:53:19 ENVIRONMENTAL STUDIES FACULTY MEMBER Mitch luis [facility] CPT-68627 Level 3 Est. Patient 19:19:37 ENVIRONMENTAL STUDIES FACULTY MEMBER Mitch luis [facility] CPT-28687 Level 3 Est. Patient 13:25:53 ENVIRONMENTAL STUDIES FACULTY MEMBER Tavo toure MD [facility] CPT-61245 Level 3 Est. Patient 18:17:28 CDT Mitch luis [facility] CPT-15895 Level 3 Est. Patient 15:22:57 CDT Mitch luis [facility] CPT-02391 Level 3 Est. Patient 18:21:50 CDT Mitch luis [facility] CPT-17046 Level 3 Est. Patient 18:20:38 CDT Mitch luis [facility] CPT-95024 Level 3 Est. Patient 15:37:55 CDT Mitch luis [facility] CPT-49907 Level 2 Est. Patient 15:54:44 CDT Carmine benton MD [facility] CPT-62828 Level 3 Est. Patient 21:46:01 ENVIRONMENTAL STUDIES FACULTY MEMBER Mitch luis [facility] CPT-44917 Level 3 Est. Patient 22:15:50 CDT Mitch luis [facility] CPT-79857 Level 3 Est. Patient 10:48:15 CDT Mitch luis [facility] CPT-23601 Level 3 Est. Patient 23:20:57 CDT Tavo toure MD [facility] CPT-66300 Level 3 Est. Patient 16:26:13 CDT Mitch luis [facility] Procedures Code Procedure Name Date Entry Date Standard Desc ription CPT-71224 Hemoccult IFOBT - LAB USE ONLY 10:27:22 CDT CPT-97100 Venipuncture Draw Fee 08:27:08 CDT CPT-48324 Liver Profile - LAB USE ONLY 08:27:07 CDT 2 CPT-29372 Microalbumin - LAB USE ONLY 08:27:07 CDT 20 25/05/09 CPT-77958 PT/INR - LAB USE ONLY 08:27:07 CDT CPT-52141 HGBA1C - LAB USE ONLY 08:27:07 CDT CPT-91614 CBC - LAB USE ONLY 08:27:07 CDT CPT-79998 Venipuncture Draw Fee 11:09:14 CDT CPT-15210 Venipuncture Draw Fee 08:32:21 ENVIRONMENTAL STUDIES FACULTY MEMBER CPT-65444 Venipuncture Draw Fee 09:38:56 ENVIRONMENTAL STUDIES FACULTY MEMBER CPT-78866 No Charge Offi Visit 21:36:07 CDT 1 CPT-55924 Venipuncture Draw Fee 10:13:28 ENVIRONMENTAL STUDIES FACULTY MEMBER CPT-86284 Venipuncture Draw Fee 08:31:11 CDT CPT-15727 Aspir/Inject Med Joint 18:17:28 CDT CPT-04990 Venipuncture Draw Fee 10:13:30 CDT CPT-08481 Venipuncture Draw Fee 08:31:43 ENVIRONMENTAL STUDIES FACULTY MEMBER CPT-JTINJ Joint Injection 18:34:50 CDT CPT-27340 Knee 3V 12:25:09 CDT CPT-11711 Venipuncture Draw Fee 12:15:57 CDT CPT-060 Medical Surveillance Exam 21:31:43 CDT 2011 CPT-59067 Venipuncture Draw Fee 08:32:05 ENVIRONMENTAL STUDIES FACULTY MEMBER CPT-OV Office Visit 18:19:06 CDT
--- OUTSIDE RECORDS SUMMARY | 2020-01-18 12:18 | XMS REPORT | Clinical Summary ---
Author Author Admin, Mitch Leon Organization [facility] Address Unknown Phone Unavailable Allergies, Adverse [...] Coronary atherosclerosis of unspecified type of vessel, [place] or graft EDEMA 782.3 Resolved Mitch Urbina [...] ( 6mg total ) 2015 WARFARIN SODIUM 52920724270 Active Domi Rivera MA Acti ve INVOKANA 100 MG ORAL TABS 1 tablet orally daily CANAGLIFLOZIN 66398166903 Active Kathie Juan RPT,RMA Active MINOXIDIL 2.5 MG TABS 1 tablet daily for high blood pressure 10/23 MINOXIDIL 14955038705 Active Mitch Urbina DO Active AMLODIPINE BESYLATE 5 MG TABS 1 tablet by mouth daily AMLODIPINE BESYLATE 87984700723 Active Domi Rivera MA Active MECLIZINE HCL 25 MG TAB 1 po tid 3 days, then 1/2 tab tid 3 days MECLIZINE HCL 73141324814 No Longer Active Corey SEGURA Active ALLOPURINOL 300 MG TABS Take 1 tablet by mouth daily 2 ALLOPURINOL 87344669583 No Longer Active Corey SEGURA Activ e CLONIDINE HCL 0.1 MG TABS 1 po bid 7 days, then 1/2 tab po b id 7 days CLONIDINE HCL 32373182452 No Longer Active Corey SEGURA Active COUMADIN 5 MG TABS 1 tab PO daily WARFARIN SODIUM 63156645846 Active Domi Rivera MA Active COUMADIN 4 MG TABS 1 tablet daily WARFARIN SODI UM 56449232089 No Longer Active Corey SEGURA Active POLYTRIM 56549-5.1 UNIT/ML-% SOLN 1 drop in affected e ye every 3 hours while awake x 7 days POLYMYXIN B-TRIMETHOPRIM 70075772410 N o Longer Active Corey SEGURA Active LOSARTAN POTASSIUM-HCTZ 100-12.5 MG TABS 1 by mouth [place] for high blood pressure LOSARTAN POTASSIUM-HCTZ 95249448115 Active Domi Rivera MA Active LISINOPRIL-HYDROCHLOROTHIAZIDE 20-12.5 MG TABS 1 tab by mouth da rocky LISINOPRIL-HYDROCHLOROTHIAZIDE 73673457767 No Longer Active Mitch luis DO Active LISINOPRIL 20 MG TABS 1 tab po at HS LISINOPRIL 89187988515 No Longer Active Mitch Urbina DO Active COUMADIN 5 MG TABS 1 by mouth every other day WARFARIN SODIUM 47110008739 No Longer Active Mitch Urbina DO Active COUMADIN 6 MG TABS 1 by mouth every other day WARFARIN SODIUM 87703660289 No Longer Active Mitch Urbina DO Active COLCRYS 0.6 MG TABS 1 tab qid prn gout COLCHICINE 76467621970 Active Corey SEGURA Active SIMVASTATIN 40 MG TABS 1 tab daily at bedtime S IMVASTATIN 10400126765 Active Domi Rivera MA Active SIMVASTATIN 20 MG TABS 1 tab daily at bedtime S IMVASTATIN 40253363856 No Longer Active Mitch Urbina DO Active LOVENOX 100 MG/ML SC SOLN One injection twice a day 09/15/15 ENOXAPARIN SODIUM 31617953369 No Longer Active Carmine Navarrete ctive JANUVIA 50 MG TABS Take one by mouth daily DIEGO GLIPTIN PHOSPHATE 26725203244 Active Domi Rivera MA Active JANUVIA 100 MG TABS 1/2 by mouth every day DIEGO GLIPTIN PHOSPHATE 13966283829 No Longer Active Bijal Segal RN Active METFORMIN HCL 500 MG TABS 2 by mouth twice daily METFORMIN HCL 30697069142 Active Kathie Juan RPT,RMA Active GLIMEPIRIDE 4 MG TABS 1 tab po bid GLIMEPIRIDE 353426 13399 Active Kathie Juna RPT,RMA Active COLCRYS 0.6 MG TABS 1 po q 6 hours prn gout pain 03/02 COLCHICINE 53704108483 No Longer Active Camila Reese Active LISINOPRIL 5 MG TABS 1 by mouth every day LISIN OPRIL 69329300907 No Longer Active Nguyen Perez Active KLOR-CON 20 MEQ PACK Take one by mouth daily 8 POTASSIUM CHLORIDE 49650012379 No Longer Active Nguyen Perez Active FUROSEMIDE 40 MG TABS 1 by mouth daily FUROSEMI DE 63585423669 No Longer Active Nguyenmolly Perez Active PROVIGIL 200 MG TABS 1/2 tab po q day MODAFINIL 58627 800212 Active Domi Rivera MA Active PROVIGIL 100 MG TABS Take one by mouth daily MO DAFINIL 05226159964 No Longer Active Mitch Urbina DO Active BACTRIM DS 800-160 MG TAB 1 tab by mouth twice daily 2 TRIMETHOPRIM-SULFAMETHOXAZOLE 17727978606 No Longer Active Renan Hays MD Active FAMOTIDINE 20 MG TABS by mouth twice a day FAMOTI DINE 25691344073 Active Mitch Urbina DO Active ADULT ASPIRIN LOW STRENGTH 81 MG TBDP 1 by mouth every daily ASPIRIN 28769417463 Active Mitch Urbina DO Active METOPROLOL TARTRATE 50 MG TABS 1 by mouth twice daily METOPROLOL TARTRATE 70231967095 Active Domi Rivera MA Active BACTRIM DS 800-160 MG TAB 1 tab by mouth twice daily 2 BACTRIM DS 800-160 MG TAB 419677 TRIMETHOPRIM-SULFAMETHOXAZOLE Inac tive PROVIGIL 100 MG TABS Take one by mouth daily 4 PROVIGIL 100 MG TABS 705147 MODAFINIL Inactive FUROSEMIDE 40 MG TABS 1 by mouth daily FU ROSEMIDE 40 MG TABS 557859 FUROSEMIDE Inactive KLOR-CON 20 MEQ PACK Take one by mouth daily 8 KLOR-CON 20 MEQ PACK 839760 POTASSIUM CHLORIDE Inactive LISINOPRIL 5 MG TABS 1 by mouth every day LISINOPRIL 5 MG TABS 825076 LISINOPRIL Inactive COLCRYS 0.6 MG TABS 1 po q 6 hours prn gout pain 03/02 COLCRYS 0.6 MG TABS 713228 COLCHICINE Inactive JANUVIA 100 MG TABS 1/2 by mouth every day JANUVI A 100 MG TABS SITAGLIPTIN PHOSPHATE Inactive SIMVASTATIN 20 MG TABS 1 tab daily at bedtime SIMVASTATIN 20 MG TABS 413039 SIMVASTATIN Inactive COUMADIN 6 MG TABS 1 by mouth every other day COUMADIN 6 MG TABS 129593 WARFARIN SODIUM Inactive COUMADIN 5 MG TABS 1 by mouth every other day COUMADIN 5 MG TABS 599937 WARFARIN SODIUM Inactive LISINOPRIL 20 MG TABS 1 tab po at HS KOKI NOPRIL 20 MG TABS 838917 LISINOPRIL Inactive LISINOPRIL-HYDROCHLOROTHIAZIDE 20-12.5 MG TABS 1 tab by mouth da rocky LISINOPRIL-HYDROCHLOROTHIAZIDE 20-12.5 MG TABS 650303 LISINOPRIL-HYDROCHLOROTHIAZIDE Inactive POLYTRIM 14108-3.1 UNIT/ML-% SOLN 1 drop in affected e ye every 3 hours while awake x 7 days POLYTRIM 17640-0.1 UNIT/ML-% SOLN 88625 7 POLYMYXIN B-TRIMETHOPRIM Inactive COUMADIN 4 MG TABS 1 tablet daily COUMADIN 4 MG TABS 955308 WARFARIN SODIUM Inactive CLONIDINE HCL 0.1 MG TABS 1 po bid 7 days, then 1/2 tab po b id 7 days CLONIDINE HCL 0.1 MG TABS 636052 CLONIDINE HCL I nactive ALLOPURINOL 300 MG TABS Take 1 tablet by mouth daily 2 ALLOPURINOL 300 MG TABS 041265 ALLOPURINOL Inactive MECLIZINE HCL 25 MG TAB 1 po tid 3 days, then 1/2 tab tid 3 days MECLIZINE HCL 25 MG TAB 079052 MECLIZINE HCL Inactive LOVENOX 100 MG/ML SC SOLN One injection twice a day 09/15/15 LOVENOX 100 MG/ML SC SOLN 212383 ENOXAPARIN SODIUM Inactive Vital Signs Date Name [...] - 3141-9 239 [lb_av] Weigh t Measured Diagnostic Results Date Name Value Unit Range Description Chart Maintenance: Hemoccult added to de [facility] - Chemistry occult blood, stool (E&M) Positive [...] - Chem istry sodium, serum 136 mmol/L 647-057 9429/01/14 carbon dioxide, venous blood 25.4 mmol/L 21.0-32 [...] ratio (INR) 2.2 1.0-3.5 prothrombin time (patient) 16.9 SECS s [...] 1.0-3.5 Encounters Code Encounter Date Provider Facility CPT-04681 Level 3 Est. Patient 09:34:30 GEOPHYSICAL LABORATORY DIRECTOR Mitch W L ee [facility] CPT-93569 Level 3 Est. Patient 09:37:15 CDT Mitch W L ee [facility] CPT-53702 Level 3 Est. Patient 17:01:00 GEOPHYSICAL LABORATORY DIRECTOR Mitch W L ee [facility] CPT-69948 Level 3 Est. Patient 13:53:19 GEOPHYSICAL LABORATORY DIRECTOR Mitch W L ee [facility] CPT-61368 Level 3 Est. Patient 19:19:37 GEOPHYSICAL LABORATORY DIRECTOR Mitch W L ee [facility] CPT-15429 Level 3 Est. Patient 13:25:53 GEOPHYSICAL LABORATORY DIRECTOR Tavo toure MD [facility] CPT-31656 Level 3 Est. Patient 18:17:28 CDT Mitch W L ee [facility] CPT-51747 Level 3 Est. Patient 15:22:57 CDT Mitch W L ee [facility] CPT-84572 Level 3 Est. Patient 18:21:50 CDT Mitch W L ee [facility] CPT-65201 Level 3 Est. Patient 18:20:38 CDT Mitch W L ee [facility] CPT-14654 Level 3 Est. Patient 15:37:55 CDT Mitch W L ee [facility] CPT-34817 Level 2 Est. Patient 15:54:44 CDT Carmine benton MD [facility]-24873 Level 3 Est. Patient 21:46:01 GEOPHYSICAL LABORATORY DIRECTOR Mitch W L ee [facility] CPT-25706 Level 3 Est. Patient 22:15:50 CDT Mitch luis [facility] CPT-32274 Level 3 Est. Patient 10:48:15 CDT Mitch luis [facility] CPT-74520 Level 3 Est. Patient 23:20:57 CDT Tavo toure MD [facility] CPT-99961 Level 3 Est. Patient 16:26:13 CDT Mitch luis [facility] Procedures Code Procedure Name Date Entry Date Standard Desc ription CPT-44237 Venipuncture Draw Fee 08:32:21 GEOPHYSICAL LABORATORY DIRECTOR CPT-37813 Venipuncture Draw Fee 09:38:56 GEOPHYSICAL LABORATORY DIRECTOR CPT-73342 No Charge Offi Visit 21:36:07 CDT 1 CPT-57274 Venipuncture Draw Fee 10:13:28 GEOPHYSICAL LABORATORY DIRECTOR CPT-33599 Venipuncture Draw Fee 08:31:11 CDT CPT-89652 Aspir/Inject Med Joint 18:17:28 CDT CPT-81370 Venipuncture Draw Fee 10:13:30 CDT CPT-44588 Venipuncture Draw Fee 08:31:43 GEOPHYSICAL LABORATORY DIRECTOR CPT-JTINJ Joint Injection 18:34:50 CDT CPT-06352 Knee 3V 12:25:09 CDT CPT-37042 Venipuncture Draw Fee 12:15:57 CDT CPT-060 Medical Surveillance Exam 21:31:43 CDT 2011 CPT-86169 Venipuncture Draw Fee 08:32:05 GEOPHYSICAL LABORATORY DIRECTOR CPT-OV Office Visit 18:19:06 CDT
--- OUTSIDE RECORDS SUMMARY | 2020-01-18 12:18 | XMS REPORT | Clinical Summary ---
[...] Coronary atherosclerosis of unspecified type of vessel, [place] or graft EDEMA 782.3 Active Mitch Urbina [...] 1 tablet by mouth daily AMLODIPINE BESYLATE 21833994971 Active Mitch Urbina DO Active MECLIZINE HCL 25 MG TAB 1 po tid 3 days, then 1/2 tab tid 3 days MECLIZINE HCL 45998826167 No Longer Active Corey SEGURA Active ALLOPURINOL 300 MG TABS Take 1 tablet by mouth daily 2 ALLOPURINOL 85091955366 No Longer Active Corey SEGURA Activ e CLONIDINE HCL 0.1 MG TABS 1 po bid 7 days, then 1/2 tab po b id 7 days CLONIDINE HCL 45938880313 No Longer Active Corey SEGURA Active COUMADIN 5 MG TABS 1 tab PO daily WARFARIN SODIUM 50333370383 Active Mitch Urbina DO Active COUMADIN 4 MG TABS 1 tablet daily WARFARIN SODI UM 68327075733 No Longer Active Corey SEGURA Active POLYTRIM 26412-4.1 UNIT/ML-% SOLN 1 drop in affected e ye every 3 hours while awake x 7 days POLYMYXIN B-TRIMETHOPRIM 09820058894 N o Longer Active Corey SEGURA Active LOSARTAN POTASSIUM-HCTZ 100-12.5 MG TABS 1 by mouth da rocky for high blood pressure LOSARTAN POTASSIUM-HCTZ 98629167470 Active Stephy Urbina DO Active LISINOPRIL-HYDROCHLOROTHIAZIDE 20-12.5 MG TABS 1 tab by mouth da rocky LISINOPRIL-HYDROCHLOROTHIAZIDE 64873981128 No Longer Active Mitch luis DO Active LISINOPRIL 20 MG TABS 1 tab po at HS LISINOPRIL 96589551139 No Longer Active Mitch Urbina DO Active COUMADIN 5 MG TABS 1 by mouth every other day WARFARIN SODIUM 34753107414 No Longer Active Mitch Urbina DO Active COUMADIN 6 MG TABS 1 by mouth every other day WARFARIN SODIUM 70230019851 No Longer Active Mitch Urbina DO Active COLCRYS 0.6 MG TABS 1 tab qid prn gout COLCHICINE 33721182573 Active Corey SEGURA Active SIMVASTATIN 40 MG TABS 1 tab daily at bedtime S IMVASTATIN 94528033874 Active Mitch Urbina DO Active SIMVASTATIN 20 MG TABS 1 tab daily at bedtime S IMVASTATIN 33481570927 No Longer Active Mitch Urbina DO Active LOVENOX 100 MG/ML SC SOLN One injection twice a day 09/15/15 ENOXAPARIN SODIUM 79917994493 No Longer Active Carmine Navarrete ctive JANUVIA 50 MG TABS Take one by mouth daily DIEGO GLIPTIN PHOSPHATE 76032156786 Active Mitch Urbina DO Active JANUVIA 100 MG TABS 1/2 by mouth every day DIEGO GLIPTIN PHOSPHATE 94638858119 No Longer Active Bijal Segal RN Active METFORMIN HCL 500 MG TABS 2 by mouth twice daily METFORMIN HCL 03141540053 Active Corey Arias PA Active GLIMEPIRIDE 4 MG TABS 1 tab po bid GLIMEPIRIDE 341399 71491 Active Mitch Urbina DO Active COLCRYS 0.6 MG TABS 1 po q 6 hours prn gout pain 03/02 COLCHICINE 28557596573 No Longer Active Camila Reese Active LISINOPRIL 5 MG TABS 1 by mouth every day LISIN OPRIL 87990401078 No Longer Active Nguyenmolly Perez Active KLOR-CON 20 MEQ PACK Take one by mouth daily 8 POTASSIUM CHLORIDE 18905203999 No Longer Active Nguyenmolly Perez Active FUROSEMIDE 40 MG TABS 1 by mouth daily FUROSEMI DE 28892917355 No Longer Active Nguyen Perez Active PROVIGIL 200 MG TABS 1/2 tab po q day MODAFINIL 07477 909544 Active Mitch Urbina DO Active PROVIGIL 100 MG TABS Take one by mouth daily MO DAFINIL 49140955688 No Longer Active Mitch Urbina DO Active BACTRIM DS 800-160 MG TAB 1 tab by mouth twice daily 2 TRIMETHOPRIM-SULFAMETHOXAZOLE 54803737191 No Longer Active Renan Hays MD Active FAMOTIDINE 20 MG TABS by mouth twice a day FAMOTI DINE 23822302959 Active Mitch Urbina DO Active ADULT ASPIRIN LOW STRENGTH 81 MG TBDP 1 by mouth every daily ASPIRIN 94596257436 Active Mitch Urbina DO Active METOPROLOL TARTRATE 50 MG TABS 1 by mouth twice daily METOPROLOL TARTRATE 06913446732 Active Curly Coker MD Active BACTRIM DS 800-160 MG TAB 1 tab by mouth twice daily 2 BACTRIM DS 800-160 MG TAB TRIMETHOPRIM-SULFAMETHOXAZOLE Inac tive PROVIGIL 100 MG TABS Take one by mouth daily 4 PROVIGIL 100 MG TABS 807334 MODAFINIL Inactive FUROSEMIDE 40 MG TABS 1 by mouth daily FU ROSEMIDE 40 MG TABS 988917 FUROSEMIDE Inactive KLOR-CON 20 MEQ PACK Take one by mouth daily 8 KLOR-CON 20 MEQ PACK 792173 POTASSIUM CHLORIDE Inactive LISINOPRIL 5 MG TABS 1 by mouth every day LISINOPRIL 5 MG TABS 521322 LISINOPRIL Inactive COLCRYS 0.6 MG TABS 1 po q 6 hours prn gout pain 03/02 COLCRYS 0.6 MG TABS 436516 COLCHICINE Inactive JANUVIA 100 MG TABS 1/2 by mouth every day JANUVI A 100 MG TABS SITAGLIPTIN PHOSPHATE Inactive SIMVASTATIN 20 MG TABS 1 tab daily at bedtime SIMVASTATIN 20 MG TABS 588086 SIMVASTATIN Inactive COUMADIN 6 MG TABS 1 by mouth every other day COUMADIN 6 MG TABS 967633 WARFARIN SODIUM Inactive COUMADIN 5 MG TABS 1 by mouth every other day COUMADIN 5 MG TABS 116034 WARFARIN SODIUM Inactive LISINOPRIL 20 MG TABS 1 tab po at HS KOKI NOPRIL 20 MG TABS 065866 LISINOPRIL Inactive LISINOPRIL-HYDROCHLOROTHIAZIDE 20-12.5 MG TABS 1 tab by mouth da rocky LISINOPRIL-HYDROCHLOROTHIAZIDE 20-12.5 MG TABS 992381 LISINOPRIL-HYDROCHLOROTHIAZIDE Inactive POLYTRIM 68495-6.1 UNIT/ML-% SOLN 1 drop in affected e ye every 3 hours while awake x 7 days POLYTRIM 98117-9.1 UNIT/ML-% SOLN 46239 7 POLYMYXIN B-TRIMETHOPRIM Inactive COUMADIN 4 MG TABS 1 tablet daily COUMADIN 4 MG TABS 926708 WARFARIN SODIUM Inactive CLONIDINE HCL 0.1 MG TABS 1 po bid 7 days, then 1/2 tab po b id 7 days CLONIDINE HCL 0.1 MG TABS 007269 CLONIDINE HCL I nactive ALLOPURINOL 300 MG TABS Take 1 tablet by mouth daily 2 ALLOPURINOL 300 MG TABS 259582 ALLOPURINOL Inactive MECLIZINE HCL 25 MG TAB 1 po tid 3 days, then 1/2 tab tid 3 days MECLIZINE HCL 25 MG TAB 380610 MECLIZINE HCL Inactive LOVENOX 100 MG/ML SC SOLN One injection twice a day 09/15/15 LOVENOX 100 MG/ML SC SOLN 891366 ENOXAPARIN SODIUM Inactive Vital Signs Date Name [...] Acid - Chemistry sodium, serum 136 mmol/L 318-164 9813/07/25 potassium, serum 4.6 mmol/L 3.5-5.2 chloride, serum [...] Ag - Chemistry sodium, serum 141 mmol/L 551-264 7142/07/06 potassium, serum 4.4 mmol/L 3.5-5.2 chloride, serum [...] Panel - Chemistry sodium, serum 137 mmol/L 903-159 3080/11/14 potassium, serum 4.4 mmol/L 3.5-5.2 chloride, serum [...] 8.0 % 4.3-6.0 cholesterol, serum 130 mg/dL 690-090 9980/11/14 triglyceride, serum, fasting 288 mg/dL 30-200 HDL cholesterol, serum 33 mg/dL 32-96 LDL cholesterol, serum 39 mg/dL 0-130 Lab Report: Comp. Metabolic Panel, HGBA1 C, Lipid Panel, Prothrombin Time - Chemistry sodium, serum 136 mmol/L 468-727 8303/12/02 potassium, serum 4.4 mmol/L 3.5-5.2 chloride, serum [...] 7.6 % 4.3-6.0 cholesterol, serum 117 mg/dL 623-950 3823/12/02 triglyceride, serum, fasting 226 mg/dL 30-200 HDL [...] 7.0 % 4.3-6.0 cholesterol, serum 120 mg/dL 672-008 7554/07/06 triglyceride, serum, fasting 186 mg/dL 30-200 HDL [...] 1.0-3.5 Encounters Code Encounter Date Provider Facility CPT-28186 Level 3 Est. Patient 09:37:15 CDT Mitch luis DO [facility] CPT-90536 Level 3 Est. 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 Patient 13:53:19 COMPUTING MACHINE OPERATOR Mitch luis [facility] CPT-93313 Level 3 Est. Patient 19:19:37 COMPUTING MACHINE OPERATOR Mitch luis [facility] CPT-46625 Level 3 Est. Patient 13:25:53 COMPUTING MACHINE OPERATOR Tavo toure MD [facility] CPT-55653 Level 3 Est. Patient 18:17:28 CDT Mitch luis [facility] CPT-94999 Level 3 Est. Patient 15:22:57 CDT Mitch luis [facility] CPT-70101 Level 3 Est. Patient 18:21:50 CDT Mitch Arnol L janelle [facility] CPT-67437 Level 3 Est. Patient 18:20:38 CDT Mitch Arnol L janelle [facility] CPT-42380 Level 3 Est. Patient 15:37:55 CDT Mitch W L janelle [facility] CPT-69043 Level 2 Est. Patient 15:54:44 CDT Carmine benton MD [facility]-80617 Level 3 Est. Patient 21:46:01 COMPUTING MACHINE OPERATOR Mitch luis [facility] CPT-11190 Level 3 Est. Patient 22:15:50 CDT Mitch luis [facility] CPT-13350 Level 3 Est. Patient 10:48:15 CDT Mitch luis [facility] CPT-13817 Level 3 Est. Patient 23:20:57 CDT Tavo toure MD [facility] CPT-25536 Level 3 Est. Patient 16:26:13 CDT Mitch luis [facility] Procedures Code Procedure Name Date Entry Date Standard Desc ription CPT-77637 No Charge Offi Visit 21:36:07 CDT 1 CPT-43103 Venipuncture Draw Fee 10:13:28 COMPUTING MACHINE OPERATOR CPT-24063 Venipuncture Draw Fee 08:31:11 CDT CPT-56780 Aspir/Inject Med Joint 18:17:28 CDT CPT-22746 Venipuncture Draw Fee 10:13:30 CDT CPT-12737 Venipuncture Draw Fee 08:31:43 COMPUTING MACHINE OPERATOR CPT-JTINJ Joint Injection 18:34:50 CDT CPT-75290 Knee 3V 12:25:09 CDT CPT-72034 Venipuncture Draw Fee 12:15:57 CDT CPT-060 Medical Surveillance Exam 21:31:43 CDT 2011 CPT-80912 Venipuncture Draw Fee 08:32:05 COMPUTING MACHINE OPERATOR CPT-OV Office Visit 18:19:06 CDT
--- OUTSIDE RECORDS SUMMARY | 2020-01-18 12:19 | XMS REPORT | Clinical Summary ---
Author Author Admin, Mitch Leon Organization [facility] Address Unknown Phone Unavailable Allergies, Adverse Reactions, [...] Coronary atherosclerosis of unspecified type of vessel, [place] or graft EDEMA 782.3 Active Mitch Urbina [...] 1 tablet by mouth daily AMLODIPINE BESYLATE 20244684660 Active Mitch Urbina DO Active MECLIZINE HCL 25 MG TAB 1 po tid 3 days, then 1/2 tab tid 3 days MECLIZINE HCL 37069181053 No Longer Active Corey SEGURA Active ALLOPURINOL 300 MG TABS Take 1 tablet by mouth daily 2 ALLOPURINOL 28072976046 No Longer Active Corey SEGURA Activ e CLONIDINE HCL 0.1 MG TABS 1 po bid 7 days, then 1/2 tab po b id 7 days CLONIDINE HCL 74575409643 No Longer Active Corey SEGURA Active COUMADIN 5 MG TABS 1 tab PO daily WARFARIN SODIUM 18975706122 Active Mitch Urbina DO Active COUMADIN 4 MG TABS 1 tablet daily WARFARIN SODI UM 87717798355 No Longer Active Corey SEGURA Active POLYTRIM 31575-2.1 UNIT/ML-% SOLN 1 drop in affected e ye every 3 hours while awake x 7 days POLYMYXIN B-TRIMETHOPRIM 53801169911 N o Longer Active Corey SEGURA Active LOSARTAN POTASSIUM-HCTZ 100-12.5 MG TABS 1 by mouth [place] for high blood pressure LOSARTAN POTASSIUM-HCTZ 30706929616 Active Stephy Urbina DO Active LISINOPRIL-HYDROCHLOROTHIAZIDE 20-12.5 MG TABS 1 tab by mouth da rocky LISINOPRIL-HYDROCHLOROTHIAZIDE 77266567781 No Longer Active Mitch luis DO Active LISINOPRIL 20 MG TABS 1 tab po at HS LISINOPRIL 29029721332 No Longer Active Mitch Urbina DO Active COUMADIN 5 MG TABS 1 by mouth every other day WARFARIN SODIUM 84339885123 No Longer Active Mitch Urbina DO Active COUMADIN 6 MG TABS 1 by mouth every other day WARFARIN SODIUM 43219682824 No Longer Active Mitch Urbina DO Active COLCRYS 0.6 MG TABS 1 tab qid prn gout COLCHICINE 75087601074 Active Corey SEGURA Active SIMVASTATIN 40 MG TABS 1 tab daily at bedtime S IMVASTATIN 00370180717 Active Mitch Urbina DO Active SIMVASTATIN 20 MG TABS 1 tab daily at bedtime S IMVASTATIN 39074526068 No Longer Active Mitch Urbina DO Active LOVENOX 100 MG/ML SC SOLN One injection twice a day 09/15/15 ENOXAPARIN SODIUM 76656726380 No Longer Active Carmine Navarrete ctive JANUVIA 50 MG TABS Take one by mouth daily DIEGO GLIPTIN PHOSPHATE 49935421439 Active Mitch Urbina DO Active JANUVIA 100 MG TABS 1/2 by mouth every day DIEGO GLIPTIN PHOSPHATE 38859369648 No Longer Active Bijal Segal RN Active METFORMIN HCL 500 MG TABS 2 by mouth twice daily METFORMIN HCL 73393640601 Active Corey Arias PA Active GLIMEPIRIDE 4 MG TABS 1 tab po bid GLIMEPIRIDE 894297 26865 Active Mitch Urbina DO Active COLCRYS 0.6 MG TABS 1 po q 6 hours prn gout pain 03/02 COLCHICINE 71736095914 No Longer Active Camilaamrgarita Reese Active LISINOPRIL 5 MG TABS 1 by mouth every day LISIN OPRIL 08738815621 No Longer Active Nguyenmolly Perez Active KLOR-CON 20 MEQ PACK Take one by mouth daily 8 POTASSIUM CHLORIDE 90498477370 No Longer Active Nguyenmolly Perez Active FUROSEMIDE 40 MG TABS 1 by mouth daily FUROSEMI DE 72800774535 No Longer Active Nguyen Perez Active PROVIGIL 200 MG TABS 1/2 tab po q day MODAFINIL 56914 960329 Active Mitch Urbina DO Active PROVIGIL 100 MG TABS Take one by mouth daily MO DAFINIL 44040405499 No Longer Active Mitch Urbina DO Active BACTRIM DS 800-160 MG TAB 1 tab by mouth twice daily TRIMETHOPRIM-SULFAMETHOXAZOLE 27878593615 No Longer Active Renan Hays MD Active FAMOTIDINE 20 MG TABS by mouth twice a day FAMOTI DINE 16563825086 Active Mitch Urbina DO Active ADULT ASPIRIN LOW STRENGTH 81 MG TBDP 1 by mouth every daily ASPIRIN 72636022343 Active Mitch Urbina DO Active METOPROLOL TARTRATE 50 MG TABS 1 by mouth twice daily METOPROLOL TARTRATE 67143829079 Active Curly Coker MD Active BACTRIM DS 800-160 MG TAB 1 tab by mouth twice daily 2 BACTRIM DS 800-160 MG TAB TRIMETHOPRIM-SULFAMETHOXAZOLE Inac tive PROVIGIL 100 MG TABS Take one by mouth daily 4 PROVIGIL 100 MG TABS 577469 MODAFINIL Inactive FUROSEMIDE 40 MG TABS 1 by mouth daily FU ROSEMIDE 40 MG TABS 954344 FUROSEMIDE Inactive KLOR-CON 20 MEQ PACK Take one by mouth daily 8 KLOR-CON 20 MEQ PACK 845390 POTASSIUM CHLORIDE Inactive LISINOPRIL 5 MG TABS 1 by mouth every day LISINOPRIL 5 MG TABS 633620 LISINOPRIL Inactive COLCRYS 0.6 MG TABS 1 po q 6 hours prn gout pain 03/02 COLCRYS 0.6 MG TABS 107275 COLCHICINE Inactive JANUVIA 100 MG TABS 1/2 by mouth every day JANUVI A 100 MG TABS SITAGLIPTIN PHOSPHATE Inactive SIMVASTATIN 20 MG TABS 1 tab daily at bedtime SIMVASTATIN 20 MG TABS 795063 SIMVASTATIN Inactive COUMADIN 6 MG TABS 1 by mouth every other day COUMADIN 6 MG TABS 898952 WARFARIN SODIUM Inactive COUMADIN 5 MG TABS 1 by mouth every other day COUMADIN 5 MG TABS 229590 WARFARIN SODIUM Inactive LISINOPRIL 20 MG TABS 1 tab po at HS KOKI NOPRIL 20 MG TABS 357361 LISINOPRIL Inactive LISINOPRIL-HYDROCHLOROTHIAZIDE 20-12.5 MG TABS 1 tab by mouth da rocky LISINOPRIL-HYDROCHLOROTHIAZIDE 20-12.5 MG TABS 654175 LISINOPRIL-HYDROCHLOROTHIAZIDE Inactive POLYTRIM 15549-1.1 UNIT/ML-% SOLN 1 drop in affected e ye every 3 hours while awake x 7 days POLYTRIM 95499-1.1 UNIT/ML-% SOLN 90741 7 POLYMYXIN B-TRIMETHOPRIM Inactive COUMADIN 4 MG TABS 1 tablet daily COUMADIN 4 MG TABS 654467 WARFARIN SODIUM Inactive CLONIDINE HCL 0.1 MG TABS 1 po bid 7 days, then 1/2 tab po b id 7 days CLONIDINE HCL 0.1 MG TABS 337747 CLONIDINE HCL I nactive ALLOPURINOL 300 MG TABS Take 1 tablet by mouth daily 2 ALLOPURINOL 300 MG TABS 187406 ALLOPURINOL Inactive MECLIZINE HCL 25 MG TAB 1 po tid 3 days, then 1/2 tab tid 3 days MECLIZINE HCL 25 MG TAB 517241 MECLIZINE HCL Inactive LOVENOX 100 MG/ML SC SOLN One injection twice a day 09/15/15 LOVENOX 100 MG/ML SC SOLN 073622 ENOXAPARIN SODIUM Inactive Vital Signs Date Name [...] Acid - Chemistry sodium, serum 136 mmol/L 014-364 9714/07/25 potassium, serum 4.6 mmol/L 3.5-5.2 chloride, serum [...] Ag - Chemistry sodium, serum 141 mmol/L 742-448 8560/07/06 potassium, serum 4.4 mmol/L 3.5-5.2 chloride, serum [...] Panel - Chemistry sodium, serum 137 mmol/L 472-325 2200/11/14 potassium, serum 4.4 mmol/L 3.5-5.2 chloride, serum [...] 8.0 % 4.3-6.0 cholesterol, serum 130 mg/dL 307-754 4443/11/14 triglyceride, serum, fasting 288 mg/dL 30-200 HDL cholesterol, serum 33 mg/dL 32-96 LDL cholesterol, serum 39 mg/dL 0-130 Lab Report: Comp. Metabolic Panel, HGBA1 C, Lipid Panel, Prothrombin Time - Chemistry sodium, serum 136 mmol/L 647-595 9326/12/02 potassium, serum 4.4 mmol/L 3.5-5.2 chloride, serum [...] 7.6 % 4.3-6.0 cholesterol, serum 117 mg/dL 789-154 7751/12/02 triglyceride, serum, fasting 226 mg/dL 30-200 HDL [...] 7.0 % 4.3-6.0 cholesterol, serum 120 mg/dL 417-191 5360/07/06 triglyceride, serum, fasting 186 mg/dL 30-200 HDL [...] 1.0-3.5 Encounters Code Encounter Date Provider Facility CPT-13528 Level 3 Est. Patient 09:37:15 CDT Mitch W L ee [facility] CPT-58673 Level 3 Est. 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 Patient 13:53:19 DRAIN TILER Mitch W L ee [facility] CPT-39384 Level 3 Est. Patient 19:19:37 DRAIN TILER Mitch W L ee [facility] CPT-03673 Level 3 Est. Patient 13:25:53 DRAIN TILER Tavo toure MD [facility] CPT-39130 Level 3 Est. Patient 18:17:28 CDT Mitch W L ee [facility] CPT-36105 Level 3 Est. Patient 15:22:57 CDT Mitch W L ee [facility] CPT-53852 Level 3 Est. Patient 18:21:50 CDT Mitch W L ee [facility] CPT-57847 Level 3 Est. Patient 18:20:38 CDT Mitch W L ee [facility] CPT-12126 Level 3 Est. Patient 15:37:55 CDT Mitch W L ee [facility] CPT-00314 Level 2 Est. Patient 15:54:44 CDT Carmine benton MD [facility] CPT-69603 Level 3 Est. Patient 21:46:01 DRAIN TILER Mitch luis [facility] CPT-52116 Level 3 Est. Patient 22:15:50 CDT Mitch luis [facility] CPT-05327 Level 3 Est. Patient 10:48:15 CDT Mitch luis [facility] CPT-59765 Level 3 Est. Patient 23:20:57 CDT Tavo toure MD [facility] CPT-34824 Level 3 Est. Patient 16:26:13 CDT Mitch luis [facility] Procedures Code Procedure Name Date Entry Date Standard Desc ription CPT-51937 No Charge Offi Visit 21:36:07 CDT 1 CPT-91485 Venipuncture Draw Fee 10:13:28 DRAIN TILER CPT-55596 Venipuncture Draw Fee 08:31:11 CDT CPT-40409 Aspir/Inject Med Joint 18:17:28 CDT CPT-27381 Venipuncture Draw Fee 10:13:30 CDT CPT-64472 Venipuncture Draw Fee 08:31:43 DRAIN TILER CPT-JTINJ Joint Injection 18:34:50 CDT CPT-27647 Knee 3V 12:25:09 CDT CPT-65529 Venipuncture Draw Fee 12:15:57 CDT CPT-060 Medical Surveillance Exam 21:31:43 CDT 2011 CPT-75256 Venipuncture Draw Fee 08:32:05 DRAIN TILER CPT-OV Office Visit 18:19:06 CDT
--- OUTSIDE RECORDS SUMMARY | 2020-01-18 12:19 | XMS REPORT | Clinical Summary ---
Author Author Admin, Mitch Leon Organization [facility] Address Unknown Phone Unavailable Allergies, Adverse [...] Coronary atherosclerosis of unspecified type of vessel, [place] or graft EDEMA 782.3 Resolved Mitch Urbina [...] MG ORAL TABS 1 po BID GLIMEPIRIDE 93577 250797 Active Ana Wallace Active KEFLEX 500 MG CAP 1 po qid CEPHALEXIN 041763628 20 No Longer Active Mitch Urbina DO Active LOSARTAN POTASSIUM 100 MG TABS 1 pill by mouth daily, for bl ood pressure LOSARTAN POTASSIUM 64674112181 Active Ana Wallace Active AMLODIPINE BESYLATE 5 MG TABS 1 tablet by mouth daily AMLODIPINE BESYLATE 02887327953 No Longer Active Joe Williamson APRN Active MITIGARE 0.6 MG ORAL CAPS 2 capsules at onset of gout pain, then take one capsule at 1 hour if symptoms persist. COLCHICINE 59 921795559 Active Mitch Urbina DO Active COUMADIN 1 MG TAB 2 tabs orally daily with the 5mg tab to equal 7mg daily WARFARIN SODIUM 46946590275 Active Mitch Urbina DO Active COLCRYS 0.6 MG TABS 1 tab qid prn gout COLCHICINE 46108093351 Active Norma Cazares Active INVOKANA 100 MG ORAL TABS 1 tablet orally daily CANAGLIFLOZIN 77528723729 Active Mitch Urbina DO Active MINOXIDIL 2.5 MG TABS 1 tablet daily for high blood pressure 10/23 MINOXIDIL 76171770984 Active Mitch Urbina DO Active MECLIZINE HCL 25 MG TAB 1 po tid 3 days, then 1/2 tab tid 3 days MECLIZINE HCL 53831064023 No Longer Active Corey SEGURA Active ALLOPURINOL 300 MG TABS Take 1 tablet by mouth daily 2 ALLOPURINOL 83331966460 No Longer Active Corey SEGURA Activ e CLONIDINE HCL 0.1 MG TABS 1 po bid 7 days, then 1/2 tab po b id 7 days CLONIDINE HCL 55061626437 No Longer Active Corey SEGURA Active COUMADIN 5 MG TABS 1 tab PO daily WARFARIN SODIUM 33188352786 Active Mitch Urbina DO Active COUMADIN 4 MG TABS 1 tablet daily WARFARIN SODI UM 55453582466 No Longer Active Corey SEGURA Active POLYTRIM 12269-3.1 UNIT/ML-% SOLN 1 drop in affected e ye every 3 hours while awake x 7 days POLYMYXIN B-TRIMETHOPRIM 36917232754 N o Longer Active Corey SEGURA Active LOSARTAN POTASSIUM-HCTZ 100-12.5 MG TABS 1 by mouth da rocky for high blood pressure LOSARTAN POTASSIUM-HCTZ 07885209561 No Longer A ctive Mitch Urbina DO Active LISINOPRIL-HYDROCHLOROTHIAZIDE 20-12.5 MG TABS 1 tab by mouth da rocky LISINOPRIL-HYDROCHLOROTHIAZIDE 62967665762 No Longer Active Mitch luis DO Active LISINOPRIL 20 MG TABS 1 tab po at HS LISINOPRIL 69458796402 No Longer Active Mitch Urbina DO Active COUMADIN 5 MG TABS 1 by mouth every other day WARFARIN SODIUM 78208932507 No Longer Active Mitch Urbina DO Active COUMADIN 6 MG TABS 1 by mouth every other day WARFARIN SODIUM 64004682591 No Longer Active Mitch Urbina DO Active SIMVASTATIN 40 MG TABS 1 tab daily at bedtime S IMVASTATIN 83255193724 Active Mitch Urbina DO Active SIMVASTATIN 20 MG TABS 1 tab daily at bedtime S IMVASTATIN 64035253384 No Longer Active Mitch Urbina DO Active LOVENOX 100 MG/ML SC SOLN One injection twice a day 09/15/15 ENOXAPARIN SODIUM 08905134515 No Longer Active Carmine Yusuf MD A ctive JANUVIA 50 MG TABS Take one by mouth daily DIEGO GLIPTIN PHOSPHATE 28375823109 Active Mitch Urbina DO Active JANUVIA 100 MG TABS 1/2 by mouth every day DIEGO GLIPTIN PHOSPHATE 37823035777 No Longer Active Bijal Segal RN Active METFORMIN HCL 500 MG TABS 2 by mouth twice daily METFORMIN HCL 25122633443 Active Mitch Urbina DO Active COLCRYS 0.6 MG TABS 1 po q 6 hours prn gout pain 03/02 COLCHICINE 16141791133 No Longer Active Camila Reese Active LISINOPRIL 5 MG TABS 1 by mouth every day LISIN OPRIL 41495245593 No Longer Active Nguyen Perez Active KLOR-CON 20 MEQ PACK Take one by mouth daily 8 POTASSIUM CHLORIDE 97466359440 No Longer Active Nguyen Perez Active FUROSEMIDE 40 MG TABS 1 by mouth daily FUROSEMI DE 21465763436 No Longer Active Nguyen Perez Active PROVIGIL 200 MG TABS 1/2 tab po q day MODAFINIL 41079 855873 Active Mitch Urbina DO Active PROVIGIL 100 MG TABS Take one by mouth daily MO DAFINIL 42046234252 No Longer Active Mitch Urbina DO Active BACTRIM DS 800-160 MG TAB 1 tab by mouth twice daily 2 TRIMETHOPRIM-SULFAMETHOXAZOLE 74306844106 No Longer Active Renan Hays MD Active FAMOTIDINE 20 MG TABS by mouth twice a day FAMOTI DINE 90045064544 Active Mitch Urbina DO Active ADULT ASPIRIN LOW STRENGTH 81 MG TBDP 1 by mouth every daily ASPIRIN 27119452274 Active Mitch Urbina DO Active METOPROLOL TARTRATE 50 MG TABS 1 by mouth twice daily METOPROLOL TARTRATE 64564726655 Active Mitch Urbina DO Active BACTRIM DS 800-160 MG TAB 1 tab by mouth twice daily 2 BACTRIM DS 800-160 MG TAB 089370 TRIMETHOPRIM-SULFAMETHOXAZOLE Inac tive PROVIGIL 100 MG TABS Take one by mouth daily 4 PROVIGIL 100 MG TABS 634900 MODAFINIL Inactive FUROSEMIDE 40 MG TABS 1 by mouth daily FU ROSEMIDE 40 MG TABS 613455 FUROSEMIDE Inactive KLOR-CON 20 MEQ PACK Take one by mouth daily 8 KLOR-CON 20 MEQ PACK POTASSIUM CHLORIDE Inactive LISINOPRIL 5 MG TABS 1 by mouth every day LISINOPRIL 5 MG TABS 951887 LISINOPRIL Inactive COLCRYS 0.6 MG TABS 1 po q 6 hours prn gout pain 03/02 COLCRYS 0.6 MG TABS 091793 COLCHICINE Inactive JANUVIA 100 MG TABS 1/2 by mouth every day JANUVI A 100 MG TABS SITAGLIPTIN PHOSPHATE Inactive SIMVASTATIN 20 MG TABS 1 tab daily at bedtime SIMVASTATIN 20 MG TABS 589996 SIMVASTATIN Inactive COUMADIN 6 MG TABS 1 by mouth every other day COUMADIN 6 MG TABS 663522 WARFARIN SODIUM Inactive COUMADIN 5 MG TABS 1 by mouth every other day COUMADIN 5 MG TABS 627308 WARFARIN SODIUM Inactive LISINOPRIL 20 MG TABS 1 tab po at HS [place]OKI NOPRIL 20 MG TABS 126659 LISINOPRIL Inactive LISINOPRIL-HYDROCHLOROTHIAZIDE 20-12.5 MG TABS 1 tab by mouth da rocky LISINOPRIL-HYDROCHLOROTHIAZIDE 20-12.5 MG TABS 071057 LISINOPRIL-HYDROCHLOROTHIAZIDE Inactive POLYTRIM 86086-9.1 UNIT/ML-% SOLN 1 drop in affected e ye every 3 hours while awake x 7 days POLYTRIM 44411-8.1 UNIT/ML-% SOLN 56315 7 POLYMYXIN B-TRIMETHOPRIM Inactive COUMADIN 4 MG TABS 1 tablet daily COUMADIN 4 MG TABS 139414 WARFARIN SODIUM Inactive CLONIDINE HCL 0.1 MG TABS 1 po bid 7 days, then 1/2 tab po b id 7 days CLONIDINE HCL 0.1 MG TABS 371179 CLONIDINE HCL I nactive ALLOPURINOL 300 MG TABS Take 1 tablet by mouth daily 2 ALLOPURINOL 300 MG TABS 014825 ALLOPURINOL Inactive MECLIZINE HCL 25 MG TAB 1 po tid 3 days, then 1/2 tab tid 3 days MECLIZINE HCL 25 MG TAB 692364 MECLIZINE HCL Inactive AMLODIPINE BESYLATE 5 MG TABS 1 tablet by mouth daily AMLODIPINE BESYLATE 5 MG TABS 310083 AMLODIPINE BESYLATE Inactive KEFLEX 500 MG CAP 1 po qid KEFLEX 500 MG CAP 30 9114 CEPHALEXIN Inactive LOVENOX 100 MG/ML SC SOLN One injection twice a day 09/15/15 LOVENOX 100 MG/ML SC SOLN 407762 ENOXAPARIN SODIUM Inactive Vital Signs Date Name [...] - Chem istry sodium, serum 139 mmol/L 285-433 5590/07/17 potassium, serum 4.2 mmol/L 3.5-5.2 chloride, serum 102 mmol/L 98-107 carbon dioxide, venous blood 28.9 mmol/L 21.0-32 .0 blood glucose 211 mg/dL 65-110 calcium, serum 10.6 mg/dL 8.5-10.1 urea nitrogen, blood 29 mg/dL 7-18 creatinine, serum 1.24 mg/dL 0.60-1.30 sodium, serum 141 mmol/L 604-270 3668/08/07 potassium, serum 4.5 mmol/L 3.5-5.2 chloride, serum [...] ... - Chemistry sodium, serum 144 mmol/L 917-669 9955/06/12 carbon dioxide, venous blood 26.6 mmol/L 21.0-32 [...] 1.0-3.5 Encounters Code Encounter Date Provider Facility CPT-99330 Level 3 Est. Patient 18:25:53 CDT Mitch luis [facility] CPT-33719 Level 3 Est. Patient 19:43:34 CDT Mitch luis [facility] CPT-89977 Level 4 Est. Patient 09:30:18 CDT Mitch luis [facility] CPT-81860 Level 3 Est. Patient 15:10:14 CDT Joe Jason anh [facility] CPT-85660 Level 3 Est. Patient 15:03:46 CDT Joe Jason anh [facility] CPT-18581 Level 3 Est. Patient 14:21:06 CDT Mitch luis [facility] CPT-36676 Level 3 Est. Patient 14:52:06 CDT Joe Jason kamara [facility] CPT-93242 Level 3 Est. Patient 09:34:30 [employer] Mitch luis [facility] CPT-48075 Level 3 Est. Patient 09:37:15 CDT Mitch luis [facility] CPT-96177 Level 3 Est. Patient 17:01:00 [employer] Mitch luis [facility] CPT-00410 Level 3 Est. Patient 13:53:19 [employer] Mitch luis [facility] CPT-58493 Level 3 Est. Patient 19:19:37 [employer] Mitch luis [facility] CPT-73843 Level 3 Est. Patient 13:25:53 [employer] Tavo toure MD [facility] CPT-89840 Level 3 Est. Patient 18:17:28 CDT Mitch luis [facility] CPT-07030 Level 3 Est. Patient 15:22:57 CDT Mitch luis [facility] CPT-63942 Level 3 Est. Patient 18:21:50 CDT Mitch luis [facility] CPT-96789 Level 3 Est. Patient 18:20:38 CDT Mitch Arnol luis [facility] CPT-00115 Level 3 Est. Patient 15:37:55 CDT Mitch luis [facility] CPT-07285 Level 2 Est. Patient 15:54:44 CDT Carmine benton MD [facility] CPT-06819 Level 3 Est. Patient 21:46:01 [employer] Mitch luis [facility] CPT-34978 Level 3 Est. Patient 22:15:50 CDT Mitch luis [facility] CPT-05078 Level 3 Est. Patient 10:48:15 CDT Mitch luis [facility] CPT-42648 Level 3 Est. Patient 23:20:57 CDT Tavo toure MD [facility] CPT-38408 Level 3 Est. Patient 16:26:13 CDT Mitch Arnol luis [facility] Procedures Code Procedure Name Date Entry Date Standard Desc ription CPT-52949 Venipuncture Draw Fee 09:26:17 CDT CPT-70551 PT/INR - LAB USE ONLY 13:32:49 [employer] CPT-03343 Venipuncture Draw Fee 13:32:49 [employer] CPT-44647 PT/INR - LAB USE ONLY 10:34:49 [employer] CPT-67379 Venipuncture Draw Fee 10:34:48 [employer] CPT-33152 PT/INR - LAB USE ONLY 09:22:03 [employer] CPT-89987 Venipuncture Draw Fee 09:22:02 [employer] CPT-61448 Hemoccult IFOBT - LAB USE ONLY 10:27:22 CDT CPT-04928 Venipuncture Draw Fee 08:27:08 CDT CPT-35412 Liver Profile - LAB USE ONLY 08:27:07 CDT 2 CPT-48933 Microalbumin - LAB USE ONLY 08:27:07 CDT 20 25/05/09 CPT-07093 PT/INR - LAB USE ONLY 08:27:07 CDT CPT-32329 HGBA1C - LAB USE ONLY 08:27:07 CDT CPT-89483 CBC - LAB USE ONLY 08:27:07 CDT CPT-37085 Venipuncture Draw Fee 11:09:14 CDT CPT-03562 Venipuncture Draw Fee 08:32:21 [employer] CPT-75409 Venipuncture Draw Fee 09:38:56 [employer] CPT-05033 No Charge Offi Visit 21:36:07 CDT 1 CPT-02174 Venipuncture Draw Fee 10:13:28 [employer] CPT-71673 Venipuncture Draw Fee 08:31:11 CDT CPT-08576 Aspir/Inject Med Joint 18:17:28 CDT CPT-74662 Venipuncture Draw Fee 10:13:30 CDT CPT-64954 Venipuncture Draw Fee 08:31:43 [employer] CPT-JTINJ Joint Injection 18:34:50 CDT CPT-53619 Knee 3V 12:25:09 CDT CPT-52930 Venipuncture Draw Fee 12:15:57 CDT CPT-060 Medical Surveillance Exam 21:31:43 CDT 2011 CPT-32585 Venipuncture Draw Fee 08:32:05 [employer] CPT-OV Office Visit 18:19:06 CDT
--- OUTSIDE RECORDS SUMMARY | 2020-01-18 12:19 | XMS REPORT | Clinical Summary ---
Author Author Admin, Mitch Leon Organization [facility] [employer] Address Unknown Phone Unavailable Allergies, Adverse Reactions, [...] Coronary atherosclerosis of unspecified type of vessel, [place] or graft EDEMA 782.3 Resolved Mitch Urbina [...] ORAL TABLET 1 po BID GLIMEPIRID E 25696771546 Active Ana Wallace Active KEFLEX 500 MG ORAL CAPSULE 1 po qid CEPHALEXI N 78752362989 No Longer Active Mitch Urbina DO Active LOSARTAN POTASSIUM 100 MG ORAL TABLET 1 pill by mouth daily, for blood pressure LOSARTAN POTASSIUM 07827051356 Active Ana Wallace Active AMLODIPINE BESYLATE 5 MG ORAL TABLET 1 tablet by mouth daily 201 01/20/04 AMLODIPINE BESYLATE 78864108368 No Longer Active Devonjustincarlitos fulton ANNIE Active MITIGARE 0.6 MG ORAL CAPSULE 2 capsules at onset of go ut pain, then take one capsule at 1 hour if symptoms persist. COLCHICINE 59 951915054 Active Mitch Urbina DO Active COUMADIN 1 MG ORAL TABLET 2 tabs orally daily with the 5mg tab to equal 7mg daily WARFARIN SODIUM 76616546676 Active Ana Wallace Active COLCRYS 0.6 MG ORAL TABLET 1 tab qid prn gout C OLCHICINE 07657754537 Active Norma Cazares Active INVOKANA 100 MG ORAL TABLET 1 tablet orally daily CANAGLIFLOZIN 21380729196 Active Mitch Urbina DO Active MINOXIDIL 2.5 MG ORAL TABLET 1 tablet daily for high blood press ure MINOXIDIL 16902876910 Active Mitch Urbina DO Active MECLIZINE HCL 25 MG ORAL TABLET 1 po tid 3 days, then 1/2 ta b tid 3 days MECLIZINE HCL 38898519445 No Longer Active Corey SEGURA Active ALLOPURINOL 300 MG ORAL TABLET Take 1 tablet by mouth daily 2012 ALLOPURINOL 00535712890 No Longer Active Corey SEGURA Active CLONIDINE HCL 0.1 MG ORAL TABLET 1 po bid 7 days, then 1/2 t ab po bid 7 days CLONIDINE HCL 48424635462 No Longer Active Corey SEGURA Active COUMADIN 5 MG ORAL TABLET 1 tab PO daily WARFAR IN SODIUM 92286160915 Active Mitch Urbina DO Active COUMADIN 4 MG ORAL TABLET 1 tablet daily WARFAR IN SODIUM 63490460855 No Longer Active Corey SEGURA Active POLYTRIM 49982-8.1 UNIT/ML-% OPHTHALMIC SOLUTION 1 rui p in affected eye every 3 hours while awake x 7 days POLYMYXIN B-TRIMETHOP RIM 82933970849 No Longer Active Corey SEGURA Active LOSARTAN POTASSIUM-HCTZ 100-12.5 MG ORAL TABLET 1 by m outh daily for high blood pressure LOSARTAN POTASSIUM-HCTZ 13013619780 No Longer A ctive Mitch Urbina DO Active LISINOPRIL-HYDROCHLOROTHIAZIDE 20-12.5 MG ORAL TABLET 1 tab by m outh daily LISINOPRIL-HYDROCHLOROTHIAZIDE 23328198259 No Longer Active Mitch Urbina DO Active LISINOPRIL 20 MG ORAL TABLET 1 tab po at HS LIS INOPRIL 79408904370 No Longer Active Mitch Urbina DO Active COUMADIN 5 MG ORAL TABLET 1 by mouth every other day 2 WARFARIN SODIUM 09153249960 No Longer Active Mitch Urbina DO Active COUMADIN 6 MG ORAL TABLET 1 by mouth every other day 2 WARFARIN SODIUM 66919104000 No Longer Active Mitch Urbina DO Active SIMVASTATIN 40 MG ORAL TABLET 1 tab daily at bedtime SIMVASTATIN 36908179648 Active Mitch Urbina DO Active SIMVASTATIN 20 MG ORAL TABLET 1 tab daily at bedtime 2 SIMVASTATIN 58391678721 No Longer Active Mitch Urbina DO Active LOVENOX 100 MG/ML SUBCUTANEOUS SOLUTION One injection twice a da y ENOXAPARIN SODIUM 63275001199 No Longer Active Carmine Yusuf MD Active JANUVIA 50 MG ORAL TABLET Take one by mouth daily SITAGLIPTIN PHOSPHATE 23758431470 Active Mitch Urbina DO Active JANUVIA 100 MG ORAL TABLET 1/2 by mouth every day 2011 SITAGLIPTIN PHOSPHATE 83549852248 No Longer Active Bijal Segal RN Acti ve METFORMIN HCL 500 MG ORAL TABLET 2 by mouth twice daily METFORMIN HCL 68522050422 Active Mitch Urbina DO Active COLCRYS 0.6 MG ORAL TABLET 1 po q 6 hours prn gout pain COLCHICINE 10932435171 No Longer Active Camila Reese Active LISINOPRIL 5 MG ORAL TABLET 1 by mouth every day 11/17 LISINOPRIL 23083132454 No Longer Active Nguyen Coekman Active KLOR-CON 20 MEQ ORAL PACKET Take one by mouth daily 09/10/08 POTASSIUM CHLORIDE 12017997492 No Longer Active Nguyen Perez Active FUROSEMIDE 40 MG ORAL TABLET 1 by mouth daily F UROSEMIDE 37967829292 No Longer Active Nguyen Coekman Active PROVIGIL 200 MG ORAL TABLET 1/2 tab po q day MODA FINIL 78593138242 Active Mitch Urbina DO Active PROVIGIL 100 MG ORAL TABLET Take one by mouth daily 08/20/04 MODAFINIL 23419889258 No Longer Active Mitch Urbina DO Active BACTRIM DS 800-160 MG ORAL TABLET 1 tab by mouth twice daily 201 10/19/09 TRIMETHOPRIM-SULFAMETHOXAZOLE 74279368469 No Longer Active Elian Hays MD Active FAMOTIDINE 20 MG ORAL TABLET by mouth twice a day FAMOTIDINE 70468195779 Active Mitch Urbina DO Active ADULT ASPIRIN LOW STRENGTH 81 MG ORAL TABLET DISINTEGR ATING 1 by mouth every daily ASPIRIN 34572325660 Active Mitch Urbina DO Ac tive METOPROLOL TARTRATE 50 MG ORAL TABLET 1 by mouth twice daily METOPROLOL TARTRATE 40947628479 Active Mitch Urbina DO Active BACTRIM DS 800-160 MG ORAL TABLET 1 tab by mouth twice daily 201 10/19/09 BACTRIM DS 800-160 MG ORAL TABLET 401778 TRIMETHOPRIM-SULFAMETHOXAZOLE Inactive PROVIGIL 100 MG ORAL TABLET Take one by mouth daily 08/20/04 PROVIGIL 100 MG ORAL TABLET 725038 MODAFINIL Inactive FUROSEMIDE 40 MG ORAL TABLET 1 by mouth daily FUROSEMIDE 40 MG ORAL TABLET 640824 FUROSEMIDE Inactive KLOR-CON 20 MEQ ORAL PACKET Take one by mouth daily 09/10/08 KLOR- CON 20 MEQ ORAL PACKET 3853987 POTASSIUM CHLORIDE Inactive LISINOPRIL 5 MG ORAL TABLET 1 by mouth every day 11/17 LISINOPRIL 5 MG ORAL TABLET 635787 LISINOPRIL Inactive COLCRYS 0.6 MG ORAL TABLET 1 po q 6 hours prn gout pain COLCRYS 0.6 MG ORAL TABLET 492836 COLCHICINE Inactive JANUVIA 100 MG ORAL TABLET 1/2 by mouth every day 2011 JANUVIA 100 MG ORAL TABLET SITAGLIPTIN PHOSPHATE Inactive SIMVASTATIN 20 MG ORAL TABLET 1 tab daily at bedtime 2 SIMVASTATIN 20 MG ORAL TABLET 665367 SIMVASTATIN Inactive COUMADIN 6 MG ORAL TABLET 1 by mouth every other day 2 COUMADIN 6 MG ORAL TABLET 815024 WARFARIN SODIUM Inactive COUMADIN 5 MG ORAL TABLET 1 by mouth every other day 2 COUMADIN 5 MG ORAL TABLET 121188 WARFARIN SODIUM Inactive LISINOPRIL 20 MG ORAL TABLET 1 tab po at HS LISINOPRIL 20 MG ORAL TABLET 169355 LISINOPRIL Inactive LISINOPRIL-HYDROCHLOROTHIAZIDE 20-12.5 MG ORAL TABLET 1 tab by m outh daily LISINOPRIL-HYDROCHLOROTHIAZIDE 20-12.5 MG ORAL TABLET 152342 LISINOPRIL-HYDROCHLOROTHIAZIDE Inactive POLYTRIM 96508-6.1 UNIT/ML-% OPHTHALMIC SOLUTION 1 rui p in affected eye every 3 hours while awake x 7 days POLYTRIM 1000 0-0.1 UNIT/ML-% OPHTHALMIC SOLUTION 444860 POLYMYXIN B-TRIMETHOPRIM Inactive COUMADIN 4 MG ORAL TABLET 1 tablet daily COUMADIN 4 MG ORAL TABLET 119344 WARFARIN SODIUM Inactive CLONIDINE HCL 0.1 MG ORAL TABLET 1 po bid 7 days, then 1/2 t ab po bid 7 days CLONIDINE HCL 0.1 MG ORAL TABLET 298759 CLONIDIN E HCL Inactive ALLOPURINOL 300 MG ORAL TABLET Take 1 tablet by mouth daily 2012 ALLOPURINOL 300 MG ORAL TABLET 065996 ALLOPURINOL I nactive MECLIZINE HCL 25 MG ORAL TABLET 1 po tid 3 days, then 1/2 ta b tid 3 days MECLIZINE HCL 25 MG ORAL TABLET 267713 MECLIZINE HCL Inactive AMLODIPINE BESYLATE 5 MG ORAL TABLET 1 tablet by mouth daily 201 01/20/04 AMLODIPINE BESYLATE 5 MG ORAL TABLET 078613 AMLODIPINE BESYLATE Inactive KEFLEX 500 MG ORAL CAPSULE 1 po qid K EFLEX 500 MG ORAL CAPSULE 767136 CEPHALEXIN Inactive LOVENOX 100 MG/ML SUBCUTANEOUS SOLUTION One injection twice a da y LOVENOX 100 MG/ML SUBCUTANEOUS SOLUTION 904244 ENOXAPAR IN SODIUM Inactive Vital Signs Date [...] - Chem istry sodium, serum 139 mmol/L 258-016 6712/07/17 potassium, serum 4.2 mmol/L 3.5-5.2 chloride, serum 102 mmol/L 98-107 carbon dioxide, venous blood 28.9 mmol/L 21.0-32 .0 blood glucose 211 mg/dL 65-110 calcium, serum 10.6 mg/dL 8.5-10.1 urea nitrogen, blood 29 mg/dL 7-18 creatinine, serum 1.24 mg/dL 0.60-1.30 sodium, serum 141 mmol/L 442-519 0672/08/07 potassium, serum 4.5 mmol/L 3.5-5.2 chloride, serum [...] ... - Chemistry sodium, serum 144 mmol/L 135-231 9728/06/12 carbon dioxide, venous blood 26.6 mmol/L 21.0-32 [...] 1.0-3.5 Encounters Code Encounter Date Provider Facility CPT-91365 Level 3 Est. Patient 18:25:53 CDT Mitch luis [facility] CPT-73349 Level 3 Est. Patient 19:43:34 CDT Mitch Castellano janelle [facility] CPT-84370 Level 4 Est. Patient 09:30:18 CDT Mitch Arnol luis [facility] CPT-58550 Level 3 Est. Patient 15:10:14 CDT Joe Gomez courtangela [facility] CPT-78611 Level 3 Est. Patient 15:03:46 CDT Joe Jaosn yunangela [facility] CPT-61199 Level 3 Est. Patient 14:21:06 CDT Mitch Ambrose Nona luis [facility] CPT-27891 Level 3 Est. Patient 14:52:06 CDT Joe Jason yunangela [facility] CPT-53846 Level 3 Est. Patient 09:34:30 [employer] Mitch luis [facility] CPT-47956 Level 3 Est. Patient 09:37:15 CDT Mitch Castellano janelle [facility] CPT-82640 Level 3 Est. Patient 17:01:00 [employer] Mitch luis [facility] CPT-83994 Level 3 Est. Patient 13:53:19 [employer] Mitch luis [facility] CPT-89413 Level 3 Est. Patient 19:19:37 [employer] Mitch luis [facility] CPT-43766 Level 3 Est. Patient 13:25:53 [employer] Tavo toure MD [facility] CPT-79231 Level 3 Est. Patient 18:17:28 CDT Mitch luis [facility] CPT-44349 Level 3 Est. Patient 15:22:57 CDT Mitch luis [facility] CPT-23073 Level 3 Est. Patient 18:21:50 CDT Mitch luis [facility] CPT-19364 Level 3 Est. Patient 18:20:38 CDT Mitch luis [facility] CPT-08476 Level 3 Est. Patient 15:37:55 CDT Mitch luis [facility] CPT-27632 Level 2 Est. Patient 15:54:44 CDT Carmine benton MD [facility] CPT-27083 Level 3 Est. Patient 21:46:01 [employer] Mitch luis [facility] CPT-52193 Level 3 Est. Patient 22:15:50 CDT Mitch luis [facility] CPT-53802 Level 3 Est. Patient 10:48:15 CDT Mitch luis [facility] CPT-39969 Level 3 Est. Patient 23:20:57 CDT Tavo toure MD [facility] CPT-04273 Level 3 Est. Patient 16:26:13 CDT Mitch luis [facility] Procedures Code Procedure Name Date Entry Date Standard Desc ription CPT-21273 Venipuncture Draw Fee 09:26:17 CDT CPT-84476 PT/INR - LAB USE ONLY 13:32:49 [employer] CPT-11247 Venipuncture Draw Fee 13:32:49 [employer] CPT-50395 PT/INR - LAB USE ONLY 10:34:49 [employer] CPT-88372 Venipuncture Draw Fee 10:34:48 [employer] CPT-09579 PT/INR - LAB USE ONLY 09:22:03 [employer] CPT-23437 Venipuncture Draw Fee 09:22:02 [employer] CPT-35591 Hemoccult IFOBT - LAB USE ONLY 10:27:22 CDT CPT-87505 Venipuncture Draw Fee 08:27:08 CDT CPT-61712 Liver Profile - LAB USE ONLY 08:27:07 CDT 2 CPT-12728 Microalbumin - LAB USE ONLY 08:27:07 CDT 20 25/05/09 CPT-54104 PT/INR - LAB USE ONLY 08:27:07 CDT CPT-28682 HGBA1C - LAB USE ONLY 08:27:07 CDT CPT-47337 CBC - LAB USE ONLY 08:27:07 CDT CPT-61778 Venipuncture Draw Fee 11:09:14 CDT CPT-18461 Venipuncture Draw Fee 08:32:21 [employer] CPT-93551 Venipuncture Draw Fee 09:38:56 [employer] CPT-59205 No Charge Offi Visit 21:36:07 CDT 1 CPT-88275 Venipuncture Draw Fee 10:13:28 [employer] CPT-42913 Venipuncture Draw Fee 08:31:11 CDT CPT-60384 Aspir/Inject Med Joint 18:17:28 CDT CPT-89291 Venipuncture Draw Fee 10:13:30 CDT CPT-38124 Venipuncture Draw Fee 08:31:43 [employer] CPT-JTINJ Joint Injection 18:34:50 CDT CPT-65665 Knee 3V 12:25:09 CDT CPT-33712 Venipuncture Draw Fee 12:15:57 CDT CPT-060 Medical Surveillance Exam 21:31:43 CDT 2011 CPT-00854 Venipuncture Draw Fee 08:32:05 [employer] CPT-OV Office Visit 18:19:06 CDT
--- OUTSIDE RECORDS SUMMARY | 2020-01-18 12:20 | XMS REPORT | Clinical Summary ---
Author Author Admin, Mitch Leon Organization [facility] Address Unknown Phone Unavailable Allergies, Adverse [...] vessel, mary's igloo or graft EDEMA 782.3 Active Mitch Urbina [...] 1 tablet by mouth daily AMLODIPINE BESYLATE 18019834585 Active Mitch Urbina DO Active MECLIZINE HCL 25 MG TAB 1 po tid 3 days, then 1/2 tab tid 3 days MECLIZINE HCL 03713757420 No Longer Active Corey SEGURA Active ALLOPURINOL 300 MG TABS Take 1 tablet by mouth daily 2 ALLOPURINOL 60683668094 No Longer Active Corey SEGURA Activ e CLONIDINE HCL 0.1 MG TABS 1 po bid 7 days, then 1/2 tab po b id 7 days CLONIDINE HCL 37557487976 No Longer Active Corey SEGURA Active COUMADIN 5 MG TABS 1 tab PO daily WARFARIN SODIUM 03338111593 Active Mitch Urbina DO Active COUMADIN 4 MG TABS 1 tablet daily WARFARIN SODI UM 99518297093 No Longer Active Corey SEGURA Active POLYTRIM 14732-0.1 UNIT/ML-% SOLN 1 drop in affected e ye every 3 hours while awake x 7 days POLYMYXIN B-TRIMETHOPRIM 14888112222 N o Longer Active Corey SEGURA Active LOSARTAN POTASSIUM-HCTZ 100-12.5 MG TABS 1 by mouth da rocky for high blood pressure LOSARTAN POTASSIUM-HCTZ 87044620819 Active Stephy Urbina DO Active LISINOPRIL-HYDROCHLOROTHIAZIDE 20-12.5 MG TABS 1 tab by mouth da rocky LISINOPRIL-HYDROCHLOROTHIAZIDE 67182116325 No Longer Active Mitch luis DO Active LISINOPRIL 20 MG TABS 1 tab po at HS LISINOPRIL 70429438414 No Longer Active Mitch Urbina DO Active COUMADIN 5 MG TABS 1 by mouth every other day WARFARIN SODIUM 24547205923 No Longer Active Mitch Urbina DO Active COUMADIN 6 MG TABS 1 by mouth every other day WARFARIN SODIUM 44855236312 No Longer Active Mitch Urbina DO Active COLCRYS 0.6 MG TABS 1 tab qid prn gout COLCHICINE 39386080077 Active Corey SEGURA Active SIMVASTATIN 40 MG TABS 1 tab daily at bedtime S IMVASTATIN 94813805954 Active Mitch Urbina DO Active SIMVASTATIN 20 MG TABS 1 tab daily at bedtime S IMVASTATIN 06639834171 No Longer Active Mitch Urbina DO Active LOVENOX 100 MG/ML SC SOLN One injection twice a day 09/15/15 ENOXAPARIN SODIUM 91458339998 No Longer Active Carmine D Col[place] MD A ctive JANUVIA 50 MG TABS Take one by mouth daily DIEGO GLIPTIN PHOSPHATE 41845772394 Active Corey Arias PA Active JANUVIA 100 MG TABS 1/2 by mouth every day DIEGO GLIPTIN PHOSPHATE 11648282386 No Longer Active Bijalseth Segal RN Active METFORMIN HCL 500 MG TABS 2 by mouth twice daily METFORMIN HCL 65095813247 Active Mitch Urbina DO Active GLIMEPIRIDE 4 MG TABS 1 tab po bid GLIMEPIRIDE 950934 37224 Active Mitch Urbina DO Active COLCRYS 0.6 MG TABS 1 po q 6 hours prn gout pain 03/02 COLCHICINE 47596838330 No Longer Active Camila Reese Active LISINOPRIL 5 MG TABS 1 by mouth every day LISIN OPRIL 03020252316 No Longer Active Nguyenmolly Perez Active KLOR-CON 20 MEQ PACK Take one by mouth daily 8 POTASSIUM CHLORIDE 58793240889 No Longer Active Nguyen Perez Active FUROSEMIDE 40 MG TABS 1 by mouth daily FUROSEMI DE 73274903121 No Longer Active Nguyen Perez Active PROVIGIL 200 MG TABS 1/2 tab po q day MODAFINIL 02836 269560 Active Mitch Urbina DO Active PROVIGIL 100 MG TABS Take one by mouth daily MO DAFINIL 08708260165 No Longer Active Mitch Urbina DO Active BACTRIM DS 800-160 MG TAB 1 tab by mouth twice daily TRIMETHOPRIM-SULFAMETHOXAZOLE 56016244053 No Longer Active Renan Hays MD Active FAMOTIDINE 20 MG TABS by mouth twice a day FAMOTI DINE 33008375673 Active Mitch Urbina DO Active ADULT ASPIRIN LOW STRENGTH 81 MG TBDP 1 by mouth every daily ASPIRIN 82278987451 Active Mitch Urbina DO Active METOPROLOL TARTRATE 50 MG TABS 1 by mouth twice daily METOPROLOL TARTRATE 39941657866 Active Mitch W Carlitos DO Active BACTRIM DS 800-160 MG TAB 1 tab by mouth twice daily 2 BACTRIM DS 800-160 MG TAB TRIMETHOPRIM-SULFAMETHOXAZOLE Inac tive PROVIGIL 100 MG TABS Take one by mouth daily 4 PROVIGIL 100 MG TABS 025515 MODAFINIL Inactive FUROSEMIDE 40 MG TABS 1 by mouth daily FU ROSEMIDE 40 MG TABS 683620 FUROSEMIDE Inactive KLOR-CON 20 MEQ PACK Take one by mouth daily 8 KLOR-CON 20 MEQ PACK 592336 POTASSIUM CHLORIDE Inactive LISINOPRIL 5 MG TABS 1 by mouth every day LISINOPRIL 5 MG TABS 920702 LISINOPRIL Inactive COLCRYS 0.6 MG TABS 1 po q 6 hours prn gout pain 03/02 COLCRYS 0.6 MG TABS COLCHICINE Inactive JANUVIA 100 MG TABS 1/2 by mouth every day JANUVI A 100 MG TABS SITAGLIPTIN PHOSPHATE Inactive SIMVASTATIN 20 MG TABS 1 tab daily at bedtime SIMVASTATIN 20 MG TABS 037408 SIMVASTATIN Inactive COUMADIN 6 MG TABS 1 by mouth every other day COUMADIN 6 MG TABS 165056 WARFARIN SODIUM Inactive COUMADIN 5 MG TABS 1 by mouth every other day COUMADIN 5 MG TABS 955042 WARFARIN SODIUM Inactive LISINOPRIL 20 MG TABS 1 tab po at HS KOKI NOPRIL 20 MG TABS 261206 LISINOPRIL Inactive LISINOPRIL-HYDROCHLOROTHIAZIDE 20-12.5 MG TABS 1 tab by mouth da rocky LISINOPRIL-HYDROCHLOROTHIAZIDE 20-12.5 MG TABS 265155 LISINOPRIL-HYDROCHLOROTHIAZIDE Inactive POLYTRIM 94639-6.1 UNIT/ML-% SOLN 1 drop in affected e ye every 3 hours while awake x 7 days POLYTRIM 54000-6.1 UNIT/ML-% SOLN 31680 7 POLYMYXIN B-TRIMETHOPRIM Inactive COUMADIN 4 MG TABS 1 tablet daily COUMADIN 4 MG TABS 761027 WARFARIN SODIUM Inactive CLONIDINE HCL 0.1 MG TABS 1 po bid 7 days, then 1/2 tab po b id 7 days CLONIDINE HCL 0.1 MG TABS 523751 CLONIDINE HCL I nactive ALLOPURINOL 300 MG TABS Take 1 tablet by mouth daily 2 ALLOPURINOL 300 MG TABS 245887 ALLOPURINOL Inactive MECLIZINE HCL 25 MG TAB 1 po tid 3 days, then 1/2 tab tid 3 days MECLIZINE HCL 25 MG TAB 306271 MECLIZINE HCL Inactive LOVENOX 100 MG/ML SC SOLN One injection twice a day 09/15/15 LOVENOX 100 MG/ML SC SOLN 828881 ENOXAPARIN SODIUM Inactive Vital Signs Date Name [...] 10.3 mg/dL 2.6-7.2 sodium, serum 136 mmol/L 596-071 1605/07/25 potassium, serum 4.6 mmol/L 3.5-5.2 chloride, serum [...] Panel - Chemistry sodium, serum 137 mmol/L 568-750 4630/11/14 potassium, serum 4.4 mmol/L 3.5-5.2 chloride, serum [...] 8.0 % 4.3-6.0 cholesterol, serum 130 mg/dL 552-449 4817/11/14 triglyceride, serum, fasting 288 mg/dL 30-200 HDL cholesterol, serum 33 mg/dL 32-96 LDL cholesterol, serum 39 mg/dL 0-130 Lab Report: Comp. Metabolic Panel, HGBA1 C, Lipid Panel, Prothrombin Time - Chemistry sodium, serum 136 mmol/L 434-940 1791/12/02 potassium, serum 4.4 mmol/L 3.5-5.2 chloride, serum [...] 7.6 % 4.3-6.0 cholesterol, serum 117 mg/dL 137-754 9703/12/02 triglyceride, serum, fasting 226 mg/dL 30-200 HDL [...] 1.0-3.5 Encounters Code Encounter Date Provider Facility CPT-48214 Level 3 Est. Patient 17:01:00 INCOME AUDITOR Mitch luis [facility] CPT-19275 Level 3 Est. Patient 13:53:19 INCOME AUDITOR Mitch luis [facility] CPT-79278 Level 3 Est. Patient 19:19:37 INCOME AUDITOR Mitch luis [facility] CPT-04326 Level 3 Est. Patient 13:25:53 INCOME AUDITOR Tavo toure MD [facility] CPT-56257 Level 3 Est. Patient 18:17:28 CDT Mitch luis [facility] CPT-07178 Level 3 Est. Patient 15:22:57 CDT Mitch luis [facility] CPT-91923 Level 3 Est. Patient 18:21:50 CDT Mitch luis [facility] CPT-42785 Level 3 Est. Patient 18:20:38 CDT Mitch luis [facility] CPT-93925 Level 3 Est. Patient 15:37:55 CDT Mitch luis [facility] CPT-80283 Level 2 Est. Patient 15:54:44 CDT Carmine benton MD [facility] CPT-07427 Level 3 Est. Patient 21:46:01 INCOME AUDITOR Mitch luis [facility] CPT-32214 Level 3 Est. Patient 22:15:50 CDT Mitch luis [facility] CPT-69346 Level 3 Est. Patient 10:48:15 CDT Mitch luis [facility] CPT-87164 Level 3 Est. Patient 23:20:57 CDT Tavo toure MD [facility] CPT-98836 Level 3 Est. Patient 16:26:13 CDT Mitch luis [facility] Procedures Code Procedure Name Date Entry Date Standard Desc ription CPT-30484 Venipuncture Draw Fee 10:13:28 INCOME AUDITOR CPT-84954 Venipuncture Draw Fee 08:31:11 CDT CPT-43010 Aspir/Inject Med Joint 18:17:28 CDT CPT-89001 Venipuncture Draw Fee 10:13:30 CDT CPT-96611 Venipuncture Draw Fee 08:31:43 INCOME AUDITOR CPT-JTINJ Joint Injection 18:34:50 CDT CPT-24296 Knee 3V 12:25:09 CDT CPT-00633 Venipuncture Draw Fee 12:15:57 CDT CPT-060 Medical Surveillance Exam 21:31:43 CDT 2011 CPT-16495 Venipuncture Draw Fee 08:32:05 INCOME AUDITOR CPT-OV Office Visit 18:19:06 CDT
--- OUTSIDE RECORDS SUMMARY | 2020-01-18 12:20 | XMS REPORT | Clinical Summary ---
Author Author Admin, Mitch Leon Organization [facility] [employer] Address Unknown Phone Unavailable Allergies, Adverse [...] tab to equal 7mg daily WARFARIN SODIUM 89833698838 Active Mitch Arnol Urbina DO Active COLCRYS 0.6 MG TABS 1 tab qid prn gout COLCHICINE 32143518096 Active Kathie Juan RPT,RMA Active INVOKANA 100 MG ORAL TABS 1 tablet orally daily CANAGLIFLOZIN 77398692796 Active Mitch Arnol Carlitos Active MINOXIDIL 2.5 MG TABS 1 tablet daily for high blood pressure 10/23 MINOXIDIL 33356996870 Active Mitch Urbina DO Active AMLODIPINE BESYLATE 5 MG TABS 1 tablet by mouth daily AMLODIPINE BESYLATE 71279008378 Active Mitch Urbina DO Active MECLIZINE HCL 25 MG TAB 1 po tid 3 days, then 1/2 tab tid 3 days MECLIZINE HCL 61042056868 No Longer Active Corey SEGURA Active ALLOPURINOL 300 MG TABS Take 1 tablet by mouth daily 2 ALLOPURINOL 47691425151 No Longer Active Corey SEGURA Activ e CLONIDINE HCL 0.1 MG TABS 1 po bid 7 days, then 1/2 tab po b id 7 days CLONIDINE HCL 28380560629 No Longer Active Corey SEGURA Active COUMADIN 5 MG TABS 1 tab PO daily WARFARIN SODIUM 25158806792 Active Mitch Urbina DO Active COUMADIN 4 MG TABS 1 tablet daily WARFARIN SODI UM 53303636779 No Longer Active Corey SEGURA Active POLYTRIM 36179-0.1 UNIT/ML-% SOLN 1 drop in affected e ye every 3 hours while awake x 7 days POLYMYXIN B-TRIMETHOPRIM 88667720698 N o Longer Active Corey SEGURA Active LOSARTAN POTASSIUM-HCTZ 100-12.5 MG TABS 1 by mouth da rocky for high blood pressure LOSARTAN POTASSIUM-HCTZ 74730855868 Active Stephy Urbina DO Active LISINOPRIL-HYDROCHLOROTHIAZIDE 20-12.5 MG TABS 1 tab by mouth da rocky LISINOPRIL-HYDROCHLOROTHIAZIDE 21663207783 No Longer Active Mitch luis DO Active LISINOPRIL 20 MG TABS 1 tab po at HS LISINOPRIL 12623876551 No Longer Active Mitch Urbina DO Active COUMADIN 5 MG TABS 1 by mouth every other day WARFARIN SODIUM 86989954307 No Longer Active Mitch Urbina DO Active COUMADIN 6 MG TABS 1 by mouth every other day WARFARIN SODIUM 16950026081 No Longer Active Mitch W Carlitos DO Active SIMVASTATIN 40 MG TABS 1 tab daily at bedtime S IMVASTATIN 80977545917 Active Mitch Urbina DO Active SIMVASTATIN 20 MG TABS 1 tab daily at bedtime S IMVASTATIN 47310899720 No Longer Active Mitch Urbina DO Active LOVENOX 100 MG/ML SC SOLN One injection twice a day 09/15/15 ENOXAPARIN SODIUM 91777377532 No Longer Active Carmine Navarrete ctive JANUVIA 50 MG TABS Take one by mouth daily DIEGO GLIPTIN PHOSPHATE 41205151445 Active Mitch Urbina DO Active JANUVIA 100 MG TABS 1/2 by mouth every day DIEGO GLIPTIN PHOSPHATE 00287864822 No Longer Active Bijal Segal RN Active METFORMIN HCL 500 MG TABS 2 by mouth twice daily METFORMIN HCL 01529709400 Active Mitch Urbina DO Active GLIMEPIRIDE 4 MG TABS 1 tab po bid GLIMEPIRIDE 301793 63740 Active Mitch Urbina DO Active COLCRYS 0.6 MG TABS 1 po q 6 hours prn gout pain 03/02 COLCHICINE 08276635869 No Longer Active Camila Reese Active LISINOPRIL 5 MG TABS 1 by mouth every day LISIN OPRIL 78228773405 No Longer Active Nguyenmolly Perez Active KLOR-CON 20 MEQ PACK Take one by mouth daily 8 POTASSIUM CHLORIDE 72884858378 No Longer Active Nguyen Ana Active FUROSEMIDE 40 MG TABS 1 by mouth daily FUROSEMI DE 39250121630 No Longer Active Nguyen Ana Active PROVIGIL 200 MG TABS 1/2 tab po q day MODAFINIL 86888 851975 Active Mitch Urbina DO Active PROVIGIL 100 MG TABS Take one by mouth daily MO DAFINIL 06593911577 No Longer Active Mitch Urbina DO Active BACTRIM DS 800-160 MG TAB 1 tab by mouth twice daily 2 TRIMETHOPRIM-SULFAMETHOXAZOLE 28731023741 No Longer Active Renan Hays MD Active FAMOTIDINE 20 MG TABS by mouth twice a day FAMOTI ZULEIKA 26358332966 Active Mitch Urbina DO Active ADULT ASPIRIN LOW STRENGTH 81 MG TBDP 1 by mouth every daily ASPIRIN 82424663788 Active Mitch Urbina DO Active METOPROLOL TARTRATE 50 MG TABS 1 by mouth twice daily METOPROLOL TARTRATE 24694662859 Active Mitch Urbina DO Active BACTRIM DS 800-160 MG TAB 1 tab by mouth twice daily 2 BACTRIM DS 800-160 MG TAB 283622 TRIMETHOPRIM-SULFAMETHOXAZOLE Inac tive PROVIGIL 100 MG TABS Take one by mouth daily 4 PROVIGIL 100 MG TABS 850411 MODAFINIL Inactive FUROSEMIDE 40 MG TABS 1 by mouth daily FU ROSEMIDE 40 MG TABS 726369 FUROSEMIDE Inactive KLOR-CON 20 MEQ PACK Take one by mouth daily 8 KLOR-CON 20 MEQ PACK 506594 POTASSIUM CHLORIDE Inactive LISINOPRIL 5 MG TABS 1 by mouth every day LISINOPRIL 5 MG TABS 128796 LISINOPRIL Inactive COLCRYS 0.6 MG TABS 1 po q 6 hours prn gout pain 03/02 COLCRYS 0.6 MG TABS 119587 COLCHICINE Inactive JANUVIA 100 MG TABS 1/2 by mouth every day JANUVI A 100 MG TABS SITAGLIPTIN PHOSPHATE Inactive SIMVASTATIN 20 MG TABS 1 tab daily at bedtime SIMVASTATIN 20 MG TABS 883668 SIMVASTATIN Inactive COUMADIN 6 MG TABS 1 by mouth every other day COUMADIN 6 MG TABS 220232 WARFARIN SODIUM Inactive COUMADIN 5 MG TABS 1 by mouth every other day COUMADIN 5 MG TABS 275628 WARFARIN SODIUM Inactive LISINOPRIL 20 MG TABS 1 tab po at HS KOKI NOPRIL 20 MG TABS 053883 LISINOPRIL Inactive LISINOPRIL-HYDROCHLOROTHIAZIDE 20-12.5 MG TABS 1 tab by mouth da rocky LISINOPRIL-HYDROCHLOROTHIAZIDE 20-12.5 MG TABS 311750 LISINOPRIL-HYDROCHLOROTHIAZIDE Inactive POLYTRIM 29675-4.1 UNIT/ML-% SOLN 1 drop in affected e ye every 3 hours while awake x 7 days POLYTRIM 79592-1.1 UNIT/ML-% SOLN 17749 7 POLYMYXIN B-TRIMETHOPRIM Inactive COUMADIN 4 MG TABS 1 tablet daily COUMADIN 4 MG TABS 150196 WARFARIN SODIUM Inactive CLONIDINE HCL 0.1 MG TABS 1 po bid 7 days, then 1/2 tab po b id 7 days CLONIDINE HCL 0.1 MG TABS 222647 CLONIDINE HCL I nactive ALLOPURINOL 300 MG TABS Take 1 tablet by mouth daily 2 ALLOPURINOL 300 MG TABS 266345 ALLOPURINOL Inactive MECLIZINE HCL 25 MG TAB 1 po tid 3 days, then 1/2 tab tid 3 days MECLIZINE HCL 25 MG TAB 674124 MECLIZINE HCL Inactive LOVENOX 100 MG/ML SC SOLN One injection twice a day 20 09/15/15 LOVENOX 100 MG/ML SC SOLN 518168 ENOXAPARIN SODIUM Inactive Vital Signs Date Name [...] Range Description Lab Report: CBC - Hematology hematocrit, blood 37.3 % 41.0-53.0 mean corpuscular volume, RBC 82 fL 80-97 mean corpuscular hemoglobin, RBC 26.6 pg 27. 0-31.2 mean corpuscular hemoglobin concentration, RBC 32.6 G/DL % 31.8-35.4 red blood cell distribution width 18.0 % 11 .6-14.8 platelet count 276 10^3/MM^3 10*3/mm3 784-108 3105/01/14 hemoglobin, blood 12.2 g/dL 13.5-17.5 erythrocyte (RBC) count 4.57 10^6/MM^3 10*6/mm3 4.69-6.1 3 leukocyte count, blood 7.1 10^3/MM^3 10*3/mm3 4.6-10.2 Lab Report: Comp. Metabolic Panel - Chem istry chloride, serum 100 mmol/L 98-107 blood glucose 241 mg/dL 65-110 urea nitrogen, blood 25 mg/dL 7-18 creatinine, serum 1.11 mg/dL 0.55-1.30 alanine aminotransferase (SGPT), serum 37 U/L 12-78 aspartate aminotransferase (SGOT), serum 26 U/L 15-37 calcium, serum 9.7 mg/dL 8.5-10.1 bilirubin, serum, total 0.70 mg/dL 0.00-1.00 sodium, serum 136 mmol/L 074-508 3340/01/14 carbon dioxide, venous blood 25.4 mmol/L 21.0-32 .0 potassium, serum 4.2 mmol/L 3.5-5.2 Lab Report: HGBA1C - Chemistry hemoglobin A1C, [...] % of total hemoglobin 6.3 % 4.3-6.0 LDL cholesterol, serum 60 mg/dL 0-130 aspartate aminotransferase (SGOT), serum 24 U/L 15-37 alanine aminotransferase (SGPT), serum 29 U/L 12-78 cholesterol, serum 136 mg/dL 597-811 8809/08/09 triglyceride, serum, fasting 187 mg/dL 30-200 HDL cholesterol, serum 39 mg/dL 32-96 bilirubin, serum, total 0.60 mg/dL 0.00-1.00 Lab [...] ratio (INR) 2.4 1.0-3.5 prothrombin time (patient) 17.1 SECS s 11.1-13.4 international normalized ratio (INR) 2.0 1.0-3.5 prothrombin time (patient) 15.4 SECS s 11.1-13.4 international normalized ratio (INR) 1.5 1.0-3.5 prothrombin time (patient) 16.2 SECS s 11.1-13.4 international normalized ratio (INR) 1.8 1.0-3.5 prothrombin time (patient) 15.8 SECS s 11.1-13.4 international normalized ratio (INR) 1.8 1.0-3.5 international normalized ratio (INR) 2.4 1.0-3.5 prothrombin time (patient) 18.9 SECS s 11.1-13.4 Encounters Code Encounter Date Provider Facility CPT-10346 Level 3 Est. Patient 14:21:06 CDT Mitch luis [facility] CPT-82368 Level 3 Est. Patient 14:52:06 [facility] Level 3 Est. Patient 09:34:30 OCEAN EXPORT COORDINATOR Mitch luis [facility] CPT-96649 Level 3 Est. Patient 09:37:15 CDT Mitch luis [facility] CPT-50093 Level 3 Est. Patient 17:01:00 OCEAN EXPORT COORDINATOR Mitch luis [facility] CPT-66467 Level 3 Est. Patient 13:53:19 OCEAN EXPORT COORDINATOR Mitch luis [facility] CPT-24882 Level 3 Est. Patient 19:19:37 OCEAN EXPORT COORDINATOR Mitch luis [facility] CPT-21923 Level 3 Est. Patient 13:25:53 OCEAN EXPORT COORDINATOR Tavo toure MD [facility]-72100 Level 3 Est. Patient 18:17:28 CDT Mitch Arnol luis [facility] CPT-34763 Level 3 Est. Patient 15:22:57 CDT Mitch Arnol luis [facility] CPT-83519 Level 3 Est. Patient 18:21:50 CDT Mitch luis [facility] CPT-76324 Level 3 Est. Patient 18:20:38 CDT Mitch Aronl L janelle [facility] CPT-62508 Level 3 Est. Patient 15:37:55 CDT Mitch Arnol L janelle [facility] CPT-23174 Level 2 Est. Patient 15:54:44 CDT Carmine benton MD [facility]-98850 Level 3 Est. Patient 21:46:01 OCEAN EXPORT COORDINATOR Mitch luis [facility] CPT-36699 Level 3 Est. Patient 22:15:50 CDT Mitch luis [facility] CPT-00407 Level 3 Est. Patient 10:48:15 CDT Mitch luis [facility] CPT-63379 Level 3 Est. Patient 23:20:57 CDT Tavo toure MD [facility] CPT-01995 Level 3 Est. Patient 16:26:13 CDT Mitch luis [facility] Procedures Code Procedure Name Date Entry Date Standard Desc ription CPT-08654 Hemoccult IFOBT - LAB USE ONLY 10:27:22 CDT CPT-37580 Venipuncture Draw Fee 08:27:08 CDT CPT-80607 Liver Profile - LAB USE ONLY 08:27:07 CDT 2 CPT-84641 Microalbumin - LAB USE ONLY 08:27:07 CDT 20 25/05/09 CPT-51703 PT/INR - LAB USE ONLY 08:27:07 CDT CPT-08496 HGBA1C - LAB USE ONLY 08:27:07 CDT CPT-78784 CBC - LAB USE ONLY 08:27:07 CDT CPT-36222 Venipuncture Draw Fee 11:09:14 CDT CPT-70976 Venipuncture Draw Fee 08:32:21 OCEAN EXPORT COORDINATOR CPT-81764 Venipuncture Draw Fee 09:38:56 OCEAN EXPORT COORDINATOR CPT-27706 No Charge Offi Visit 21:36:07 CDT 1 CPT-48174 Venipuncture Draw Fee 10:13:28 OCEAN EXPORT COORDINATOR CPT-03696 Venipuncture Draw Fee 08:31:11 CDT CPT-67454 Aspir/Inject Med Joint 18:17:28 CDT CPT-62490 Venipuncture Draw Fee 10:13:30 CDT CPT-93035 Venipuncture Draw Fee 08:31:43 OCEAN EXPORT COORDINATOR CPT-JTINJ Joint Injection 18:34:50 CDT CPT-77104 Knee 3V 12:25:09 CDT CPT-31234 Venipuncture Draw Fee 12:15:57 CDT CPT-060 Medical Surveillance Exam 21:31:43 CDT 2011 CPT-78918 Venipuncture Draw Fee 08:32:05 OCEAN EXPORT COORDINATOR CPT-OV Office Visit 18:19:06 CDT
--- OUTSIDE RECORDS SUMMARY | 2020-01-18 12:20 | XMS REPORT | Clinical Summary ---
Author Author Admin, Mitch eLon Organization [facility] Address Unknown Phone Unavailable Allergies, Adverse Reactions, [...] 1 tablet by mouth daily AMLODIPINE BESYLATE 34176335762 No Longer Active Joe Williamson APRN Active MITIGARE 0.6 MG ORAL CAPS 2 capsules at onset of gout pain, then take one capsule at 1 hour if symptoms persist. COLCHICINE 59 019903787 Active Mitch Urbina DO Active COUMADIN 1 MG TAB 2 tabs orally daily with the 5mg tab to equal 7mg daily WARFARIN SODIUM 45680533113 Active Mitch Urbina DO Active COLCRYS 0.6 MG TABS 1 tab qid prn gout COLCHICINE 73409470294 Active Norma Cazares Active INVOKANA 100 MG ORAL TABS 1 tablet orally daily CANAGLIFLOZIN 37959165270 Active Brenda Shen Active MINOXIDIL 2.5 MG TABS 1 tablet daily for high blood pressure 10/23 MINOXIDIL 69674133767 Active Ana Wallace Active MECLIZINE HCL 25 MG TAB 1 po tid 3 days, then 1/2 tab tid 3 days MECLIZINE HCL 83772735113 No Longer Active Corey SEGURA Active ALLOPURINOL 300 MG TABS Take 1 tablet by mouth daily 2 ALLOPURINOL 55103786705 No Longer Active Corey SEGURA Activ e CLONIDINE HCL 0.1 MG TABS 1 po bid 7 days, then 1/2 tab po b id 7 days CLONIDINE HCL 81505294591 No Longer Active Corey SEGURA Active COUMADIN 5 MG TABS 1 tab PO daily WARFARIN SODIUM 68968773571 Active Mitch Urbina DO Active COUMADIN 4 MG TABS 1 tablet daily WARFARIN SODI UM 51173601318 No Longer Active Corey SEGURA Active POLYTRIM 71243-7.1 UNIT/ML-% SOLN 1 drop in affected e ye every 3 hours while awake x 7 days POLYMYXIN B-TRIMETHOPRIM 19373581903 N o Longer Active Corey ESGURA Active LOSARTAN POTASSIUM-HCTZ 100-12.5 MG TABS 1 by mouth da rocky for high blood pressure LOSARTAN POTASSIUM-HCTZ 56563803616 Active Stephy Urbina DO Active LISINOPRIL-HYDROCHLOROTHIAZIDE 20-12.5 MG TABS 1 tab by mouth da rocky LISINOPRIL-HYDROCHLOROTHIAZIDE 71031972217 No Longer Active Mitch luis DO Active LISINOPRIL 20 MG TABS 1 tab po at HS LISINOPRIL 55254535715 No Longer Active Mitch Urbina DO Active COUMADIN 5 MG TABS 1 by mouth every other day WARFARIN SODIUM 96445750103 No Longer Active Mitch Urbina DO Active COUMADIN 6 MG TABS 1 by mouth every other day WARFARIN SODIUM 55661917333 No Longer Active Mitch Urbina DO Active SIMVASTATIN 40 MG TABS 1 tab daily at bedtime S IMVASTATIN 02913838964 Active Mitch Urbina DO Active SIMVASTATIN 20 MG TABS 1 tab daily at bedtime S IMVASTATIN 32873694494 No Longer Active Mitch Urbina DO Active LOVENOX 100 MG/ML SC SOLN One injection twice a day 09/15/15 ENOXAPARIN SODIUM 75491322767 No Longer Active Carmine Navarrete ctive JANUVIA 50 MG TABS Take one by mouth daily DIEGO GLIPTIN PHOSPHATE 02306285252 Active Mitch Urbina DO Active JANUVIA 100 MG TABS 1/2 by mouth every day DIEGO GLIPTIN PHOSPHATE 29019807975 No Longer Active Bijal Segal RN Active METFORMIN HCL 500 MG TABS 2 by mouth twice daily METFORMIN HCL 25232709064 Active Mitch Urbina DO Active GLIMEPIRIDE 4 MG TABS 1 tab po bid GLIMEPIRIDE 997201 41327 Active Mitch Urbina DO Active COLCRYS 0.6 MG TABS 1 po q 6 hours prn gout pain 03/02 COLCHICINE 15219724493 No Longer Active Camila Reese Active LISINOPRIL 5 MG TABS 1 by mouth every day LISIN OPRIL 08033912457 No Longer Active Nguyen Perez Active KLOR-CON 20 MEQ PACK Take one by mouth daily 8 POTASSIUM CHLORIDE 85687008391 No Longer Active Nguyen Perez Active FUROSEMIDE 40 MG TABS 1 by mouth daily FUROSEMI DE 62532925734 No Longer Active Nguyen Perez Active PROVIGIL 200 MG TABS 1/2 tab po q day MODAFINIL 86027 327922 Active Kathie Juan RPT,RMA Active PROVIGIL 100 MG TABS Take one by mouth daily MO DAFINIL 86550681478 No Longer Active Mitch Urbina DO Active BACTRIM DS 800-160 MG TAB 1 tab by mouth twice daily 2 TRIMETHOPRIM-SULFAMETHOXAZOLE 10124038465 No Longer Active Renan Hays MD Active FAMOTIDINE 20 MG TABS by mouth twice a day FAMOTI DINE 18407071382 Active Mitch Urbina DO Active ADULT ASPIRIN LOW STRENGTH 81 MG TBDP 1 by mouth every daily ASPIRIN 97443042630 Active Mitch Urbina DO Active METOPROLOL TARTRATE 50 MG TABS 1 by mouth twice daily METOPROLOL TARTRATE 40398264563 Active Mitch Urbina DO Active BACTRIM DS 800-160 MG TAB 1 tab by mouth twice daily 2 BACTRIM DS 800-160 MG TAB 382451 TRIMETHOPRIM-SULFAMETHOXAZOLE Inac tive PROVIGIL 100 MG TABS Take one by mouth daily 4 PROVIGIL 100 MG TABS 118373 MODAFINIL Inactive FUROSEMIDE 40 MG TABS 1 by mouth daily FU ROSEMIDE 40 MG TABS 723556 FUROSEMIDE Inactive KLOR-CON 20 MEQ PACK Take one by mouth daily 8 KLOR-CON 20 MEQ PACK 942325 POTASSIUM CHLORIDE Inactive LISINOPRIL 5 MG TABS 1 by mouth every day LISINOPRIL 5 MG TABS 864446 LISINOPRIL Inactive COLCRYS 0.6 MG TABS 1 po q 6 hours prn gout pain 03/02 COLCRYS 0.6 MG TABS 772386 COLCHICINE Inactive JANUVIA 100 MG TABS 1/2 by mouth every day JANUVI A 100 MG TABS SITAGLIPTIN PHOSPHATE Inactive SIMVASTATIN 20 MG TABS 1 tab daily at bedtime SIMVASTATIN 20 MG TABS 757352 SIMVASTATIN Inactive COUMADIN 6 MG TABS 1 by mouth every other day COUMADIN 6 MG TABS 744881 WARFARIN SODIUM Inactive COUMADIN 5 MG TABS 1 by mouth every other day COUMADIN 5 MG TABS 900401 WARFARIN SODIUM Inactive LISINOPRIL 20 MG TABS 1 tab po at HS KOKI NOPRIL 20 MG TABS 890027 LISINOPRIL Inactive LISINOPRIL-HYDROCHLOROTHIAZIDE 20-12.5 MG TABS 1 tab by mouth da rocky LISINOPRIL-HYDROCHLOROTHIAZIDE 20-12.5 MG TABS 948380 LISINOPRIL-HYDROCHLOROTHIAZIDE Inactive POLYTRIM 98950-3.1 UNIT/ML-% SOLN 1 drop in affected e ye every 3 hours while awake x 7 days POLYTRIM 10810-8.1 UNIT/ML-% SOLN 95559 7 POLYMYXIN B-TRIMETHOPRIM Inactive COUMADIN 4 MG TABS 1 tablet daily COUMADIN 4 MG TABS 832387 WARFARIN SODIUM Inactive CLONIDINE HCL 0.1 MG TABS 1 po bid 7 days, then 1/2 tab po b id 7 days CLONIDINE HCL 0.1 MG TABS 205791 CLONIDINE HCL I nactive ALLOPURINOL 300 MG TABS Take 1 tablet by mouth daily 2 ALLOPURINOL 300 MG TABS 402145 ALLOPURINOL Inactive MECLIZINE HCL 25 MG TAB 1 po tid 3 days, then 1/2 tab tid 3 days MECLIZINE HCL 25 MG TAB 024030 MECLIZINE HCL Inactive AMLODIPINE BESYLATE 5 MG TABS 1 tablet by mouth daily AMLODIPINE BESYLATE 5 MG TABS 630904 AMLODIPINE BESYLATE Inactive LOVENOX 100 MG/ML SC SOLN One injection twice a day 09/15/15 LOVENOX 100 MG/ML SC SOLN 841967 ENOXAPARIN SODIUM Inactive Vital Signs Date Name [...] Range Description Chart Maintenance: hemoccult added to [facility] - Chemistry occult blood, stool (E&M) Positive Lab Report: HGBA1C - Chemistry hemoglobin A1C, blood, as % of total hemoglobin 6.6 % 4.3-6.0 Lab Report: Lipid Panel, HEPATIC PANEL, MICROALB/CREAT W/RATIO, HGBA1C, CBC - Chemistry cholesterol, serum 136 mg/dL 141-696 9544/08/09 triglyceride, serum, fasting 187 mg/dL 30-200 HDL [...] 1.0-3.5 Encounters Code Encounter Date Provider Facility CPT-68435 Level 3 Est. Patient 15:10:14 CDT Joe kamara Formerly named [facility] CPT-51464 Level 3 Est. Patient 15:03:46 CDT Joe kamara Formerly named [facility] CPT-56070 Level 3 Est. Patient 14:21:06 CDT Mitch luis [facility] CPT-80068 Level 3 Est. Patient 14:52:06 CDT Joe kamara Formerly named [facility] CPT-61260 Level 3 Est. Patient 09:34:30 [employer] Mitch luis [facility] CPT-20381 Level 3 Est. Patient 09:37:15 CDT Mitch luis [facility] CPT-05418 Level 3 Est. Patient 17:01:00 [employer] Mitch luis [facility] CPT-63231 Level 3 Est. Patient 13:53:19 [employer] Mitch luis [facility] CPT-64596 Level 3 Est. Patient 19:19:37 [employer] Mitch luis [facility] CPT-08488 Level 3 Est. Patient 13:25:53 [employer] Tavo toure MD [facility] CPT-43318 Level 3 Est. Patient 18:17:28 CDT Mitch Arnol L janelle [facility] CPT-60061 Level 3 Est. Patient 15:22:57 CDT Mitch W L janelle [facility] CPT-84501 Level 3 Est. Patient 18:21:50 CDT Mitch W L janelle [facility] CPT-38265 Level 3 Est. Patient 18:20:38 CDT Mitch W L janelle [facility] CPT-41345 Level 3 Est. Patient 15:37:55 CDT Mitch Arnol Nona janelle [facility] CPT-54768 Level 2 Est. Patient 15:54:44 CDT Carmine benton MD [facility] CPT-41302 Level 3 Est. Patient 21:46:01 [employer] Mitch luis [facility] CPT-58794 Level 3 Est. Patient 22:15:50 CDT Mitch Arnol luis [facility] CPT-87245 Level 3 Est. Patient 10:48:15 CDT Mitch luis [facility] CPT-80032 Level 3 Est. Patient 23:20:57 CDT Tavo toure MD [facility] CPT-41519 Level 3 Est. Patient 16:26:13 CDT Mitch luis [facility] Procedures Code Procedure Name Date Entry Date Standard Desc ription CPT-63659 PT/INR - LAB USE ONLY 13:32:49 [employer] CPT-76725 Venipuncture Draw Fee 13:32:49 [employer] CPT-18491 PT/INR - LAB USE ONLY 10:34:49 [employer] CPT-69217 Venipuncture Draw Fee 10:34:48 [employer] CPT-86899 PT/INR - LAB USE ONLY 09:22:03 [employer] CPT-68618 Venipuncture Draw Fee 09:22:02 [employer] CPT-11352 Hemoccult IFOBT - LAB USE ONLY 10:27:22 CDT CPT-13297 Venipuncture Draw Fee 08:27:08 CDT CPT-57150 Liver Profile - LAB USE ONLY 08:27:07 CDT 2 CPT-82110 Microalbumin - LAB USE ONLY 08:27:07 CDT 20 25/05/09 CPT-04846 PT/INR - LAB USE ONLY 08:27:07 CDT CPT-63173 HGBA1C - LAB USE ONLY 08:27:07 CDT CPT-89235 CBC - LAB USE ONLY 08:27:07 CDT CPT-63938 Venipuncture Draw Fee 11:09:14 CDT CPT-62522 Venipuncture Draw Fee 08:32:21 [employer] CPT-07318 Venipuncture Draw Fee 09:38:56 [employer] CPT-28450 No Charge Offi Visit 21:36:07 CDT 1 CPT-76133 Venipuncture Draw Fee 10:13:28 [employer] CPT-41011 Venipuncture Draw Fee 08:31:11 CDT CPT-43170 Aspir/Inject Med Joint 18:17:28 CDT CPT-43011 Venipuncture Draw Fee 10:13:30 CDT CPT-20552 Venipuncture Draw Fee 08:31:43 [employer] CPT-JTINJ Joint Injection 18:34:50 CDT CPT-88065 Knee 3V 12:25:09 CDT CPT-62367 Venipuncture Draw Fee 12:15:57 CDT CPT-060 Medical Surveillance Exam 21:31:43 CDT 2011 CPT-72278 Venipuncture Draw Fee 08:32:05 [employer] CPT-OV Office Visit 18:19:06 CDT
--- OUTSIDE RECORDS SUMMARY | 2020-01-18 12:20 | XMS REPORT | Clinical Summary ---
Author Author Admin, Mitch Leon Organization [facility] Address Unknown Phone Unavailable Allergies, [...] Seroma complicating a procedure HYPERLIPIDEMIA 272.4 Active Reann Hays MD Other and unspecified hyperlipidemia DIABETES, [...] of vessel, stillaguamish or graft EDEMA 782.3 Active Mitch Urbina [...] 1 tablet by mouth daily AMLODIPINE BESYLATE 78735961485 Active Mitch Urbina DO Active MECLIZINE HCL 25 MG TAB 1 po tid 3 days, then 1/2 tab tid 3 days MECLIZINE HCL 67402287648 No Longer Active Corey SEGURA Active ALLOPURINOL 300 MG TABS Take 1 tablet by mouth daily 2 ALLOPURINOL 78123307390 No Longer Active Corey SEGURA Activ e CLONIDINE HCL 0.1 MG TABS 1 po bid 7 days, then 1/2 tab po b id 7 days CLONIDINE HCL 52246930499 No Longer Active Corey SEGURA Active COUMADIN 5 MG TABS 1 tab PO daily WARFARIN SODIUM 58868149596 Active Mitch Urbina DO Active COUMADIN 4 MG TABS 1 tablet daily WARFARIN SODI UM 91062862933 No Longer Active Corey SEGURA Active POLYTRIM 55184-1.1 UNIT/ML-% SOLN 1 drop in affected e ye every 3 hours while awake x 7 days POLYMYXIN B-TRIMETHOPRIM 31823999358 N o Longer Active Corey SEGURA Active LOSARTAN POTASSIUM-HCTZ 100-12.5 MG TABS 1 by mouth da rocky for high blood pressure LOSARTAN POTASSIUM-HCTZ 61773251071 Active Stephy Urbina DO Active LISINOPRIL-HYDROCHLOROTHIAZIDE 20-12.5 MG TABS 1 tab by mouth da rocky LISINOPRIL-HYDROCHLOROTHIAZIDE 92867297492 No Longer Active Mitch luis DO Active LISINOPRIL 20 MG TABS 1 tab po at HS LISINOPRIL 88205789666 No Longer Active Mitch Urbina DO Active COUMADIN 5 MG TABS 1 by mouth every other day WARFARIN SODIUM 41979822977 No Longer Active Mitch Urbina DO Active COUMADIN 6 MG TABS 1 by mouth every other day WARFARIN SODIUM 25193971008 No Longer Active Mitch Urbina DO Active COLCRYS 0.6 MG TABS 1 tab qid prn gout COLCHICINE 10173802466 Active Corey SEGURA Active SIMVASTATIN 40 MG TABS 1 tab daily at bedtime S IMVASTATIN 93521901182 Active Mitch Urbina DO Active SIMVASTATIN 20 MG TABS 1 tab daily at bedtime S IMVASTATIN 41207837313 No Longer Active Mitch Urbina DO Active LOVENOX 100 MG/ML SC SOLN One injection twice a day 09/15/15 ENOXAPARIN SODIUM 90799336899 No Longer Active Carmine Navarrete ctive JANUVIA 50 MG TABS Take one by mouth daily DIEGO GLIPTIN PHOSPHATE 84386216347 Active Mitch Urbina DO Active JANUVIA 100 MG TABS 1/2 by mouth every day DIEGO GLIPTIN PHOSPHATE 65015420592 No Longer Active Bijal Segal RN Active METFORMIN HCL 500 MG TABS 2 by mouth twice daily METFORMIN HCL 66385389048 Active Corey Arias PA Active GLIMEPIRIDE 4 MG TABS 1 tab po bid GLIMEPIRIDE 365390 38260 Active Mitch Urbina DO Active COLCRYS 0.6 MG TABS 1 po q 6 hours prn gout pain 03/02 COLCHICINE 99090024385 No Longer Active Camila Reese Active LISINOPRIL 5 MG TABS 1 by mouth every day LISIN OPRIL 55383026562 No Longer Active Nguyenmolly Perez Active KLOR-CON 20 MEQ PACK Take one by mouth daily 8 POTASSIUM CHLORIDE 46964319427 No Longer Active Nguyenmolly Perez Active FUROSEMIDE 40 MG TABS 1 by mouth daily FUROSEMI DE 46759673417 No Longer Active Nguyen Perez Active PROVIGIL 200 MG TABS 1/2 tab po q day MODAFINIL 38555 706810 Active Mitch Urbina DO Active PROVIGIL 100 MG TABS Take one by mouth daily MO DAFINIL 44409409772 No Longer Active Mitch Urbina DO Active BACTRIM DS 800-160 MG TAB 1 tab by mouth twice daily 2 TRIMETHOPRIM-SULFAMETHOXAZOLE 26265200538 No Longer Active Renan Hays MD Active FAMOTIDINE 20 MG TABS by mouth twice a day FAMOTI DINE 56058073614 Active Mitch Urbina DO Active ADULT ASPIRIN LOW STRENGTH 81 MG TBDP 1 by mouth every daily ASPIRIN 93056189549 Active Mitch Urbina DO Active METOPROLOL TARTRATE 50 MG TABS 1 by mouth twice daily METOPROLOL TARTRATE 39084156728 Active Curly Coker MD Active BACTRIM DS 800-160 MG TAB 1 tab by mouth twice daily 2 BACTRIM DS 800-160 MG TAB TRIMETHOPRIM-SULFAMETHOXAZOLE Inac tive PROVIGIL 100 MG TABS Take one by mouth daily 4 PROVIGIL 100 MG TABS 696042 MODAFINIL Inactive FUROSEMIDE 40 MG TABS 1 by mouth daily FU ROSEMIDE 40 MG TABS 987636 FUROSEMIDE Inactive KLOR-CON 20 MEQ PACK Take one by mouth daily 8 KLOR-CON 20 MEQ PACK 287657 POTASSIUM CHLORIDE Inactive LISINOPRIL 5 MG TABS 1 by mouth every day LISINOPRIL 5 MG TABS 110282 LISINOPRIL Inactive COLCRYS 0.6 MG TABS 1 po q 6 hours prn gout pain 03/02 COLCRYS 0.6 MG TABS 118998 COLCHICINE Inactive JANUVIA 100 MG TABS 1/2 by mouth every day JANUVI A 100 MG TABS SITAGLIPTIN PHOSPHATE Inactive SIMVASTATIN 20 MG TABS 1 tab daily at bedtime SIMVASTATIN 20 MG TABS 279065 SIMVASTATIN Inactive COUMADIN 6 MG TABS 1 by mouth every other day COUMADIN 6 MG TABS 559396 WARFARIN SODIUM Inactive COUMADIN 5 MG TABS 1 by mouth every other day COUMADIN 5 MG TABS 064610 WARFARIN SODIUM Inactive LISINOPRIL 20 MG TABS 1 tab po at HS KOKI NOPRIL 20 MG TABS 878374 LISINOPRIL Inactive LISINOPRIL-HYDROCHLOROTHIAZIDE 20-12.5 MG TABS 1 tab by mouth da rocky LISINOPRIL-HYDROCHLOROTHIAZIDE 20-12.5 MG TABS 621910 LISINOPRIL-HYDROCHLOROTHIAZIDE Inactive POLYTRIM 94299-8.1 UNIT/ML-% SOLN 1 drop in affected e ye every 3 hours while awake x 7 days POLYTRIM 22097-4.1 UNIT/ML-% SOLN 38724 7 POLYMYXIN B-TRIMETHOPRIM Inactive COUMADIN 4 MG TABS 1 tablet daily COUMADIN 4 MG TABS 305135 WARFARIN SODIUM Inactive CLONIDINE HCL 0.1 MG TABS 1 po bid 7 days, then 1/2 tab po b id 7 days CLONIDINE HCL 0.1 MG TABS 919345 CLONIDINE HCL I nactive ALLOPURINOL 300 MG TABS Take 1 tablet by mouth daily 2 ALLOPURINOL 300 MG TABS 103367 ALLOPURINOL Inactive MECLIZINE HCL 25 MG TAB 1 po tid 3 days, then 1/2 tab tid 3 days MECLIZINE HCL 25 MG TAB 661630 MECLIZINE HCL Inactive LOVENOX 100 MG/ML SC SOLN One injection twice a day 09/15/15 LOVENOX 100 MG/ML SC SOLN 891245 ENOXAPARIN SODIUM Inactive Vital Signs Date Name [...] Acid - Chemistry sodium, serum 136 mmol/L 710-455 4610/07/25 potassium, serum 4.6 mmol/L 3.5-5.2 chloride, serum [...] Ag - Chemistry sodium, serum 141 mmol/L 368-970 8292/07/06 potassium, serum 4.4 mmol/L 3.5-5.2 chloride, serum [...] Panel - Chemistry sodium, serum 137 mmol/L 432-745 7704/11/14 potassium, serum 4.4 mmol/L 3.5-5.2 chloride, serum [...] 8.0 % 4.3-6.0 cholesterol, serum 130 mg/dL 339-038 8067/11/14 triglyceride, serum, fasting 288 mg/dL 30-200 HDL cholesterol, serum 33 mg/dL 32-96 LDL cholesterol, serum 39 mg/dL 0-130 Lab Report: Comp. Metabolic Panel, HGBA1 C, Lipid Panel, Prothrombin Time - Chemistry sodium, serum 136 mmol/L 507-181 4720/12/02 potassium, serum 4.4 mmol/L 3.5-5.2 chloride, serum [...] 7.6 % 4.3-6.0 cholesterol, serum 117 mg/dL 816-677 6177/12/02 triglyceride, serum, fasting 226 mg/dL 30-200 HDL [...] 7.0 % 4.3-6.0 cholesterol, serum 120 mg/dL 917-261 8599/07/06 triglyceride, serum, fasting 186 mg/dL 30-200 HDL [...] 1.0-3.5 Encounters Code Encounter Date Provider Facility CPT-33449 Level 3 Est. Patient 09:37:15 CDT Mitch W L janelle [facility] CPT-51053 Level 3 Est. Patient 17:01:00 SALES CORRESPONDENT Mitch W L janelle [facility] CPT-41446 Level 3 Est. Patient 13:53:19 SALES CORRESPONDENT Mitch W L janelle [facility] CPT-04012 Level 3 Est. Patient 19:19:37 SALES CORRESPONDENT Mitch W L ee [facility] CPT-23021 Level 3 Est. Patient 13:25:53 SALES CORRESPONDENT Tavo toure MD [facility] CPT-69495 Level 3 Est. Patient 18:17:28 CDT Mitch W L ee [facility] CPT-92702 Level 3 Est. Patient 15:22:57 CDT Mitch W L ee [facility] CPT-55207 Level 3 Est. Patient 18:21:50 CDT Mitch W L ee [facility] CPT-73012 Level 3 Est. Patient 18:20:38 CDT Mitch W L ee [facility]-44240 Level 3 Est. Patient 15:37:55 CDT Mitch W L ee [facility] CPT-05251 Level 2 Est. Patient 15:54:44 CDT Carmine benton MD [facility] CPT-17935 Level 3 Est. Patient 21:46:01 SALES CORRESPONDENT Mitch luis [facility] CPT-97522 Level 3 Est. Patient 22:15:50 CDT Mitch luis DO [facility] CPT-05635 Level 3 Est. Patient 10:48:15 CDT Mitch luis [facility] CPT-07274 Level 3 Est. Patient 23:20:57 CDT Tavo toure MD [facility] CPT-11232 Level 3 Est. Patient 16:26:13 CDT Mitch luis [facility] Procedures Code Procedure Name Date Entry Date Standard Desc ription CPT-44149 No Charge Offi Visit 21:36:07 CDT 1 CPT-69454 Venipuncture Draw Fee 10:13:28 SALES CORRESPONDENT CPT-16419 Venipuncture Draw Fee 08:31:11 CDT CPT-83575 Aspir/Inject Med Joint 18:17:28 CDT CPT-74172 Venipuncture Draw Fee 10:13:30 CDT CPT-00376 Venipuncture Draw Fee 08:31:43 SALES CORRESPONDENT CPT-JTINJ Joint Injection 18:34:50 CDT CPT-66779 Knee 3V 12:25:09 CDT CPT-75999 Venipuncture Draw Fee 12:15:57 CDT CPT-060 Medical Surveillance Exam 21:31:43 CDT 2011 CPT-06958 Venipuncture Draw Fee 08:32:05 SALES CORRESPONDENT CPT-OV Office Visit 18:19:06 CDT
--- OUTSIDE RECORDS SUMMARY | 2020-01-18 12:21 | XMS REPORT | Clinical Summary ---
Author Author Admin, Mitch Leon Organization [facility] Address Unknown Phone Unavailable Allergies, Adverse Reactions, [...] Coronary atherosclerosis of unspecified type of vessel, [place] or graft EDEMA 782.3 Resolved Mitch Urbina [...] 1 hour if symptoms persist. COLCHICINE 59 717115444 Active Mitch Urbina DO Active COUMADIN 1 MG TAB 2 tabs orally daily with the 5mg tab to equal 7mg daily WARFARIN SODIUM 26968357725 Active Norma Cazares Active COLCRYS 0.6 MG TABS 1 tab qid prn gout COLCHICINE 37607698983 Active Norma Cazares Active INVOKANA 100 MG ORAL TABS 1 tablet orally daily CANAGLIFLOZIN 82593451718 Active Mitch Urbina DO Active MINOXIDIL 2.5 MG TABS 1 tablet daily for high blood pressure 10/23 MINOXIDIL 49988798856 Active Domi Rivera MA Active AMLODIPINE BESYLATE 5 MG TABS 1 tablet by mouth daily AMLODIPINE BESYLATE 83430717517 Active Mitch Urbina DO Active MECLIZINE HCL 25 MG TAB 1 po tid 3 days, then 1/2 tab tid 3 days MECLIZINE HCL 77889224143 No Longer Active Corey SEGURA Active ALLOPURINOL 300 MG TABS Take 1 tablet by mouth daily 2 ALLOPURINOL 57245041106 No Longer Active Corey SEGURA Activ e CLONIDINE HCL 0.1 MG TABS 1 po bid 7 days, then 1/2 tab po b id 7 days CLONIDINE HCL 86856582354 No Longer Active Corey SEGURA Active COUMADIN 5 MG TABS 1 tab PO daily WARFARIN SODIUM 40803959774 Active Mitch Urbina DO Active COUMADIN 4 MG TABS 1 tablet daily WARFARIN SODI UM 39965544517 No Longer Active Corey SEGURA Active POLYTRIM 22959-2.1 UNIT/ML-% SOLN 1 drop in affected e ye every 3 hours while awake x 7 days POLYMYXIN B-TRIMETHOPRIM 97762192907 N o Longer Active Corey SEGURA Active LOSARTAN POTASSIUM-HCTZ 100-12.5 MG TABS 1 by mouth [place] for high blood pressure LOSARTAN POTASSIUM-HCTZ 15383500313 Active Stephy Urbina DO Active LISINOPRIL-HYDROCHLOROTHIAZIDE 20-12.5 MG TABS 1 tab by mouth da [place] LISINOPRIL-HYDROCHLOROTHIAZIDE 93282206910 No Longer Active Mitch luis DO Active LISINOPRIL 20 MG TABS 1 tab po at HS LISINOPRIL 93714431016 No Longer Active Mitch Urbina DO Active COUMADIN 5 MG TABS 1 by mouth every other day WARFARIN SODIUM 54451115782 No Longer Active Mitch Urbina DO Active COUMADIN 6 MG TABS 1 by mouth every other day WARFARIN SODIUM 57403224369 No Longer Active Mitch Urbina DO Active SIMVASTATIN 40 MG TABS 1 tab daily at bedtime S IMVASTATIN 89914170195 Active Mitch Urbina DO Active SIMVASTATIN 20 MG TABS 1 tab daily at bedtime S IMVASTATIN 89100043922 No Longer Active Mitch Urbina DO Active LOVENOX 100 MG/ML SC SOLN One injection twice a day 09/15/15 ENOXAPARIN SODIUM 09349784247 No Longer Active Carmine Navarrete ctive JANUVIA 50 MG TABS Take one by mouth daily DIEGO GLIPTIN PHOSPHATE 10810538475 Active Mitch Urbina DO Active JANUVIA 100 MG TABS 1/2 by mouth every day DIEGO GLIPTIN PHOSPHATE 05685604441 No Longer Active Bijal Segal RN Active METFORMIN HCL 500 MG TABS 2 by mouth twice daily METFORMIN HCL 92108935025 Active Mitch Urbina DO Active GLIMEPIRIDE 4 MG TABS 1 tab po bid GLIMEPIRIDE 719911 23318 Active Mitch Arnol Carlitos DO Active COLCRYS 0.6 MG TABS 1 po q 6 hours prn gout pain 03/02 COLCHICINE 75384340784 No Longer Active Camila Reese Active LISINOPRIL 5 MG TABS 1 by mouth every day LISIN OPRIL 22007797335 No Longer Active Nguyen Perez Active KLOR-CON 20 MEQ PACK Take one by mouth daily 8 POTASSIUM CHLORIDE 84756641843 No Longer Active Nguyenmolly Perez Active FUROSEMIDE 40 MG TABS 1 by mouth daily FUROSEMI DE 29172109489 No Longer Active Nguyen Perez Active PROVIGIL 200 MG TABS 1/2 tab po q day MODAFINIL 04451 275147 Active Kathie Juan RPT,RMA Active PROVIGIL 100 MG TABS Take one by mouth daily MO DAFINIL 48795278703 No Longer Active Mitch Urbina DO Active BACTRIM DS 800-160 MG TAB 1 tab by mouth twice daily 2 TRIMETHOPRIM-SULFAMETHOXAZOLE 55368334965 No Longer Active Renan Hays MD Active FAMOTIDINE 20 MG TABS by mouth twice a day FAMOTI DINE 97955344394 Active Mitch Urbina DO Active ADULT ASPIRIN LOW STRENGTH 81 MG TBDP 1 by mouth every daily ASPIRIN 63037805465 Active Mitch Urbina DO Active METOPROLOL TARTRATE 50 MG TABS 1 by mouth twice daily METOPROLOL TARTRATE 88645260759 Active Mitch Urbina DO Active BACTRIM DS 800-160 MG TAB 1 tab by mouth twice daily 2 BACTRIM DS 800-160 MG TAB 643467 TRIMETHOPRIM-SULFAMETHOXAZOLE Inac tive PROVIGIL 100 MG TABS Take one by mouth daily 4 PROVIGIL 100 MG TABS 515515 MODAFINIL Inactive FUROSEMIDE 40 MG TABS 1 by mouth daily FU ROSEMIDE 40 MG TABS 729141 FUROSEMIDE Inactive KLOR-CON 20 MEQ PACK Take one by mouth daily 8 KLOR-CON 20 MEQ PACK 131968 POTASSIUM CHLORIDE Inactive LISINOPRIL 5 MG TABS 1 by mouth every day LISINOPRIL 5 MG TABS 452044 LISINOPRIL Inactive COLCRYS 0.6 MG TABS 1 po q 6 hours prn gout pain 03/02 COLCRYS 0.6 MG TABS 246723 COLCHICINE Inactive JANUVIA 100 MG TABS 1/2 by mouth every day JANUVI A 100 MG TABS SITAGLIPTIN PHOSPHATE Inactive SIMVASTATIN 20 MG TABS 1 tab daily at bedtime SIMVASTATIN 20 MG TABS 032645 SIMVASTATIN Inactive COUMADIN 6 MG TABS 1 by mouth every other day COUMADIN 6 MG TABS 511405 WARFARIN SODIUM Inactive COUMADIN 5 MG TABS 1 by mouth every other day COUMADIN 5 MG TABS 915415 WARFARIN SODIUM Inactive LISINOPRIL 20 MG TABS 1 tab po at HS KOKI NOPRIL 20 MG TABS 589648 LISINOPRIL Inactive LISINOPRIL-HYDROCHLOROTHIAZIDE 20-12.5 MG TABS 1 tab by mouth da [place] LISINOPRIL-HYDROCHLOROTHIAZIDE 20-12.5 MG TABS 451191 LISINOPRIL-HYDROCHLOROTHIAZIDE Inactive POLYTRIM 74513-9.1 UNIT/ML-% SOLN 1 drop in affected e ye every 3 hours while awake x 7 days POLYTRIM 29301-6.1 UNIT/ML-% SOLN 65162 7 POLYMYXIN B-TRIMETHOPRIM Inactive COUMADIN 4 MG TABS 1 tablet daily COUMADIN 4 MG TABS 217929 WARFARIN SODIUM Inactive CLONIDINE HCL 0.1 MG TABS 1 po bid 7 days, then 1/2 tab po b id 7 days CLONIDINE HCL 0.1 MG TABS 539670 CLONIDINE HCL I nactive ALLOPURINOL 300 MG TABS Take 1 tablet by mouth daily 2 ALLOPURINOL 300 MG TABS 309835 ALLOPURINOL Inactive MECLIZINE HCL 25 MG TAB 1 po tid 3 days, then 1/2 tab tid 3 days MECLIZINE HCL 25 MG TAB 586514 MECLIZINE HCL Inactive LOVENOX 100 MG/ML SC SOLN One injection twice a day 09/15/15 LOVENOX 100 MG/ML SC SOLN 844528 ENOXAPARIN SODIUM Inactive Vital Signs Date Name [...] Range Description Chart Maintenance: [facility] - Chemistry occult blood, stool (E&M) [...] - Chem istry sodium, serum 136 mmol/L 058-074 9397/01/14 carbon dioxide, venous blood 25.4 mmol/L 21.0-32 [...] CBC - Chemistry cholesterol, serum 136 mg/dL 142-763 0323/08/09 triglyceride, serum, fasting 187 mg/dL 30-200 HDL [...] 1.0-3.5 Encounters Code Encounter Date Provider Facility CPT-43130 Level 3 Est. Patient 14:21:06 CDT Mitch luis [facility] CPT-02150 Level 3 Est. Patient 14:52:06 [facility] Level 3 Est. Patient 09:34:30 PRINTED CIRCUIT PHOTOGRAPHER Mitch luis [facility] CPT-13584 Level 3 Est. Patient 09:37:15 CDT Mitch luis [facility] CPT-11475 Level 3 Est. Patient 17:01:00 PRINTED CIRCUIT PHOTOGRAPHER Mitch luis [facility] CPT-30410 Level 3 Est. Patient 13:53:19 PRINTED CIRCUIT PHOTOGRAPHER Mitch luis [facility] CPT-70720 Level 3 Est. Patient 19:19:37 PRINTED CIRCUIT PHOTOGRAPHER Mitch luis [facility] CPT-51429 Level 3 Est. Patient 13:25:53 PRINTED CIRCUIT PHOTOGRAPHER Tavo toure MD [facility] CPT-86888 Level 3 Est. Patient 18:17:28 CDT Mitch luis [facility] CPT-23677 Level 3 Est. Patient 15:22:57 CDT Mitch luis [facility] CPT-04408 Level 3 Est. Patient 18:21:50 CDT Mitch luis [facility] CPT-84285 Level 3 Est. Patient 18:20:38 CDT Mitch luis [facility] CPT-13284 Level 3 Est. Patient 15:37:55 CDT Mitch luis [facility] CPT-58483 Level 2 Est. Patient 15:54:44 CDT Carmine benton MD [facility] CPT-83416 Level 3 Est. Patient 21:46:01 PRINTED CIRCUIT PHOTOGRAPHER Mitch luis [facility] CPT-76073 Level 3 Est. Patient 22:15:50 CDT Mitch luis [facility] CPT-53010 Level 3 Est. Patient 10:48:15 CDT Mitch luis [facility] CPT-59701 Level 3 Est. Patient 23:20:57 CDT Tavo toure MD [facility] CPT-39837 Level 3 Est. Patient 16:26:13 CDT Mitch luis [facility] Procedures Code Procedure Name Date Entry Date Standard Desc ription CPT-50477 PT/INR - LAB USE ONLY 10:34:49 PRINTED CIRCUIT PHOTOGRAPHER CPT-99811 Venipuncture Draw Fee 10:34:48 PRINTED CIRCUIT PHOTOGRAPHER CPT-56965 PT/INR - LAB USE ONLY 09:22:03 PRINTED CIRCUIT PHOTOGRAPHER CPT-48227 Venipuncture Draw Fee 09:22:02 PRINTED CIRCUIT PHOTOGRAPHER CPT-76835 Hemoccult IFOBT - LAB USE ONLY 10:27:22 CDT CPT-02907 Venipuncture Draw Fee 08:27:08 CDT CPT-31873 Liver Profile - LAB USE ONLY 08:27:07 CDT 2 CPT-14390 Microalbumin - LAB USE ONLY 08:27:07 CDT 20 25/05/09 CPT-81757 PT/INR - LAB USE ONLY 08:27:07 CDT CPT-61868 HGBA1C - LAB USE ONLY 08:27:07 CDT CPT-95238 CBC - LAB USE ONLY 08:27:07 CDT CPT-82509 Venipuncture Draw Fee 11:09:14 CDT CPT-04499 Venipuncture Draw Fee 08:32:21 PRINTED CIRCUIT PHOTOGRAPHER CPT-50074 Venipuncture Draw Fee 09:38:56 PRINTED CIRCUIT PHOTOGRAPHER CPT-98670 No Charge Offi Visit 21:36:07 CDT 1 CPT-99396 Venipuncture Draw Fee 10:13:28 PRINTED CIRCUIT PHOTOGRAPHER CPT-28622 Venipuncture Draw Fee 08:31:11 CDT CPT-68877 Aspir/Inject Med Joint 18:17:28 CDT CPT-19969 Venipuncture Draw Fee 10:13:30 CDT CPT-75945 Venipuncture Draw Fee 08:31:43 PRINTED CIRCUIT PHOTOGRAPHER CPT-JTINJ Joint Injection 18:34:50 CDT CPT-11356 Knee 3V 12:25:09 CDT CPT-89323 Venipuncture Draw Fee 12:15:57 CDT CPT-060 Medical Surveillance Exam 21:31:43 CDT 2011 CPT-86163 Venipuncture Draw Fee 08:32:05 PRINTED CIRCUIT PHOTOGRAPHER CPT-OV Office Visit 18:19:06 CDT
--- OUTSIDE RECORDS SUMMARY | 2020-01-18 12:21 | XMS REPORT | Clinical Summary ---
Author Author Admin, Mitch Leon Organization [facility] Address Unknown Phone Unavailable Allergies, Adverse Reactions, [...] Coronary atherosclerosis of unspecified type of vessel, [place] or graft EDEMA 782.3 Resolved Mitch Urbina [...] 500 MG CAP 1 po qid CEPHALEXIN 08619048062 Act juan Mitch Arnol Urbina DO Active LOSARTAN POTASSIUM 100 MG TABS 1 pill by mouth daily, for bl ood pressure LOSARTAN POTASSIUM 95062475178 Active Ana Wallace Active AMLODIPINE BESYLATE 5 MG TABS 1 tablet by mouth daily AMLODIPINE BESYLATE 29763853207 No Longer Active Catherinecarlitos Ryandonaldo VALENCIA Active MITIGARE 0.6 MG ORAL CAPS 2 capsules at onset of gout pain, then take one capsule at 1 hour if symptoms persist. COLCHICINE 59 078997319 Active Mitch Urbina DO Active COUMADIN 1 MG TAB 2 tabs orally daily with the 5mg tab to equal 7mg daily WARFARIN SODIUM 09464137595 Active Mitch Urbina DO Active COLCRYS 0.6 MG TABS 1 tab qid prn gout COLCHICINE 69711825360 Active Norma Cazares Active INVOKANA 100 MG ORAL TABS 1 tablet orally daily CANAGLIFLOZIN 60040094481 Active Mitch Urbina DO Active MINOXIDIL 2.5 MG TABS 1 tablet daily for high blood pressure 10/23 MINOXIDIL 47625042051 Active Mitch Urbina DO Active MECLIZINE HCL 25 MG TAB 1 po tid 3 days, then 1/2 tab tid 3 days MECLIZINE HCL 50252349442 No Longer Active Corey SEGURA Active ALLOPURINOL 300 MG TABS Take 1 tablet by mouth daily 2 ALLOPURINOL 84949698280 No Longer Active Corey SEGURA Activ e CLONIDINE HCL 0.1 MG TABS 1 po bid 7 days, then 1/2 tab po b id 7 days CLONIDINE HCL 02098241615 No Longer Active Corey SEGURA Active COUMADIN 5 MG TABS 1 tab PO daily WARFARIN SODIUM 73302542862 Active Mitch Urbina DO Active COUMADIN 4 MG TABS 1 tablet daily WARFARIN SODI UM 23738421335 No Longer Active Corey SEGURA Active POLYTRIM 95987-9.1 UNIT/ML-% SOLN 1 drop in affected e ye every 3 hours while awake x 7 days POLYMYXIN B-TRIMETHOPRIM 90631769967 N o Longer Active Corey SEGURA Active LOSARTAN POTASSIUM-HCTZ 100-12.5 MG TABS 1 by mouth [place] for high blood pressure LOSARTAN POTASSIUM-HCTZ 52358822328 No Longer A ctive Mitch Urbina DO Active LISINOPRIL-HYDROCHLOROTHIAZIDE 20-12.5 MG TABS 1 tab by mouth [place] LISINOPRIL-HYDROCHLOROTHIAZIDE 91203325962 No Longer Active Mitch Castellano janelle DO Active LISINOPRIL 20 MG TABS 1 tab po at HS LISINOPRIL 27222584751 No Longer Active Mitch Urbina DO Active COUMADIN 5 MG TABS 1 by mouth every other day WARFARIN SODIUM 21886829564 No Longer Active Mitch Urbina DO Active COUMADIN 6 MG TABS 1 by mouth every other day WARFARIN SODIUM 41867019401 No Longer Active Mitch Urbina DO Active SIMVASTATIN 40 MG TABS 1 tab daily at bedtime S IMVASTATIN 00583450816 Active Mitch Urbina DO Active SIMVASTATIN 20 MG TABS 1 tab daily at bedtime S IMVASTATIN 82909429953 No Longer Active Mitch Urbina DO Active LOVENOX 100 MG/ML SC SOLN One injection twice a day 09/15/15 ENOXAPARIN SODIUM 05633199183 No Longer Active Carmine Navarrete ctive JANUVIA 50 MG TABS Take one by mouth daily DIEGO GLIPTIN PHOSPHATE 87611524426 Active Mitch Urbina DO Active JANUVIA 100 MG TABS 1/2 by mouth every day DIEGO GLIPTIN PHOSPHATE 87254539064 No Longer Active Bijal Segal RN Active METFORMIN HCL 500 MG TABS 2 by mouth twice daily METFORMIN HCL 68700039916 Active Mitch Urbina DO Active GLIMEPIRIDE 4 MG TABS 1 tab po bid GLIMEPIRIDE 953666 70903 Active Mitch Urbina DO Active COLCRYS 0.6 MG TABS 1 po q 6 hours prn gout pain 03/02 COLCHICINE 03522302354 No Longer Active Camila Reese Active LISINOPRIL 5 MG TABS 1 by mouth every day LISIN OPRIL 66869533249 No Longer Active Nguyen Perez Active KLOR-CON 20 MEQ PACK Take one by mouth daily 8 POTASSIUM CHLORIDE 38644540506 No Longer Active Nguyen Perez Active FUROSEMIDE 40 MG TABS 1 by mouth daily FUROSEMI DE 31044039756 No Longer Active Nguyen Perez Active PROVIGIL 200 MG TABS 1/2 tab po q day MODAFINIL 24977 351061 Active Mitch Urbina DO Active PROVIGIL 100 MG TABS Take one by mouth daily MO DAFINIL 65858868140 No Longer Active Mitch Urbina DO Active BACTRIM DS 800-160 MG TAB 1 tab by mouth twice daily 2 TRIMETHOPRIM-SULFAMETHOXAZOLE 94551898056 No Longer Active Renan Hays MD Active FAMOTIDINE 20 MG TABS by mouth twice a day FAMOTI DINE 44850133313 Active Mitch Urbina DO Active ADULT ASPIRIN LOW STRENGTH 81 MG TBDP 1 by mouth every daily ASPIRIN 13524723399 Active Mitch Urbina DO Active METOPROLOL TARTRATE 50 MG TABS 1 by mouth twice daily METOPROLOL TARTRATE 52924088070 Active Mitch Urbina DO Active BACTRIM DS 800-160 MG TAB 1 tab by mouth twice daily 2 BACTRIM DS 800-160 MG TAB 610658 TRIMETHOPRIM-SULFAMETHOXAZOLE Inac tive PROVIGIL 100 MG TABS Take one by mouth daily 4 PROVIGIL 100 MG TABS 251275 MODAFINIL Inactive FUROSEMIDE 40 MG TABS 1 by mouth daily FU ROSEMIDE 40 MG TABS 598325 FUROSEMIDE Inactive KLOR-CON 20 MEQ PACK Take one by mouth daily 8 KLOR-CON 20 MEQ PACK POTASSIUM CHLORIDE Inactive LISINOPRIL 5 MG TABS 1 by mouth every day LISINOPRIL 5 MG TABS 967807 LISINOPRIL Inactive COLCRYS 0.6 MG TABS 1 po q 6 hours prn gout pain 03/02 COLCRYS 0.6 MG TABS 441397 COLCHICINE Inactive JANUVIA 100 MG TABS 1/2 by mouth every day JANUVI A 100 MG TABS SITAGLIPTIN PHOSPHATE Inactive SIMVASTATIN 20 MG TABS 1 tab daily at bedtime SIMVASTATIN 20 MG TABS 568444 SIMVASTATIN Inactive COUMADIN 6 MG TABS 1 by mouth every other day COUMADIN 6 MG TABS 905192 WARFARIN SODIUM Inactive COUMADIN 5 MG TABS 1 by mouth every other day COUMADIN 5 MG TABS 992832 WARFARIN SODIUM Inactive LISINOPRIL 20 MG TABS 1 tab po at HS [place] NOPRIL 20 MG TABS 984955 LISINOPRIL Inactive LISINOPRIL-HYDROCHLOROTHIAZIDE 20-12.5 MG TABS 1 tab by mouth da [place] LISINOPRIL-HYDROCHLOROTHIAZIDE 20-12.5 MG TABS 338695 LISINOPRIL-HYDROCHLOROTHIAZIDE Inactive POLYTRIM 79507-4.1 UNIT/ML-% SOLN 1 drop in affected e ye every 3 hours while awake x 7 days POLYTRIM 12103-6.1 UNIT/ML-% SOLN 18719 7 POLYMYXIN B-TRIMETHOPRIM Inactive COUMADIN 4 MG TABS 1 tablet daily COUMADIN 4 MG TABS 484887 WARFARIN SODIUM Inactive CLONIDINE HCL 0.1 MG TABS 1 po bid 7 days, then 1/2 tab po b id 7 days CLONIDINE HCL 0.1 MG TABS 257032 CLONIDINE HCL I nactive ALLOPURINOL 300 MG TABS Take 1 tablet by mouth daily 2 ALLOPURINOL 300 MG TABS 864140 ALLOPURINOL Inactive MECLIZINE HCL 25 MG TAB 1 po tid 3 days, then 1/2 tab tid 3 days MECLIZINE HCL 25 MG TAB 073903 MECLIZINE HCL Inactive AMLODIPINE BESYLATE 5 MG TABS 1 tablet by mouth daily AMLODIPINE BESYLATE 5 MG TABS 761518 AMLODIPINE BESYLATE Inactive LOVENOX 100 MG/ML SC SOLN One injection twice a day 09/15/15 LOVENOX 100 MG/ML SC SOLN 308714 ENOXAPARIN SODIUM Inactive Vital Signs Date Name [...] - Chem istry sodium, serum 139 mmol/L 722-807 9387/07/17 potassium, serum 4.2 mmol/L 3.5-5.2 chloride, serum [...] ... - Chemistry sodium, serum 144 mmol/L 016-225 8069/06/12 carbon dioxide, venous blood 26.6 mmol/L 21.0-32 [...] CBC - Chemistry cholesterol, serum 136 mg/dL 287-669 4791/08/09 triglyceride, serum, fasting 187 mg/dL 30-200 HDL [...] 1.0-3.5 Encounters Code Encounter Date Provider Facility CPT-33454 Level 3 Est. Patient 19:43:34 CDT Mitch luis [facility] CPT-73486 Level 4 Est. Patient 09:30:18 CDT Mitch luis [facility] CPT-59381 Level 3 Est. Patient 15:10:14 CDT Joe Jason kamara [facility] CPT-74926 Level 3 Est. Patient 15:03:46 CDT Joe Jason kamara [facility] CPT-71188 Level 3 Est. Patient 14:21:06 CDT Mitch luis [facility]-61854 Level 3 Est. Patient 14:52:06 CDT Joe Jason kamara [facility] CPT-33623 Level 3 Est. Patient 09:34:30 SOLID WASTE TECHNICIAN Mitch luis [facility] CPT-38250 Level 3 Est. Patient 09:37:15 CDT Mitch luis [facility] CPT-95908 Level 3 Est. Patient 17:01:00 SOLID WASTE TECHNICIAN Mitch luis [facility] CPT-37279 Level 3 Est. Patient 13:53:19 SOLID WASTE TECHNICIAN Mitch luis [facility] CPT-91162 Level 3 Est. Patient 19:19:37 SOLID WASTE TECHNICIAN Mitch luis [facility] CPT-36630 Level 3 Est. Patient 13:25:53 SOLID WASTE TECHNICIAN Tavo toure MD [facility] CPT-35780 Level 3 Est. Patient 18:17:28 CDT Mitch luis [facility] CPT-10529 Level 3 Est. Patient 15:22:57 CDT Mitch luis [facility] CPT-72148 Level 3 Est. Patient 18:21:50 CDT Mitch luis [facility] CPT-46328 Level 3 Est. Patient 18:20:38 CDT Mitch luis [facility] CPT-63692 Level 3 Est. Patient 15:37:55 CDT Mitch luis [facility] CPT-27465 Level 2 Est. Patient 15:54:44 CDT Carmine benton MD [facility] CPT-62348 Level 3 Est. Patient 21:46:01 SOLID WASTE TECHNICIAN Mitch luis [facility] CPT-85446 Level 3 Est. Patient 22:15:50 CDT Mitch luis [facility] CPT-10508 Level 3 Est. Patient 10:48:15 CDT Mitch luis [facility] CPT-68243 Level 3 Est. Patient 23:20:57 CDT Tavo toure MD [facility] CPT-35412 Level 3 Est. Patient 16:26:13 CDT Mitch luis [facility] Procedures Code Procedure Name Date Entry Date Standard Desc ription CPT-39546 Venipuncture Draw Fee 09:26:17 CDT CPT-73089 PT/INR - LAB USE ONLY 13:32:49 SOLID WASTE TECHNICIAN CPT-08275 Venipuncture Draw Fee 13:32:49 SOLID WASTE TECHNICIAN CPT-23801 PT/INR - LAB USE ONLY 10:34:49 SOLID WASTE TECHNICIAN CPT-75520 Venipuncture Draw Fee 10:34:48 SOLID WASTE TECHNICIAN CPT-62820 PT/INR - LAB USE ONLY 09:22:03 SOLID WASTE TECHNICIAN CPT-47133 Venipuncture Draw Fee 09:22:02 SOLID WASTE TECHNICIAN CPT-07950 Hemoccult IFOBT - LAB USE ONLY 10:27:22 CDT CPT-20514 Venipuncture Draw Fee 08:27:08 CDT CPT-61086 Liver Profile - LAB USE ONLY 08:27:07 CDT 2 CPT-91742 Microalbumin - LAB USE ONLY 08:27:07 CDT 20 25/05/09 CPT-51014 PT/INR - LAB USE ONLY 08:27:07 CDT CPT-77381 HGBA1C - LAB USE ONLY 08:27:07 CDT CPT-55752 CBC - LAB USE ONLY 08:27:07 CDT CPT-93614 Venipuncture Draw Fee 11:09:14 CDT CPT-15682 Venipuncture Draw Fee 08:32:21 SOLID WASTE TECHNICIAN CPT-79641 Venipuncture Draw Fee 09:38:56 SOLID WASTE TECHNICIAN CPT-79532 No Charge Offi Visit 21:36:07 CDT 1 CPT-32096 Venipuncture Draw Fee 10:13:28 SOLID WASTE TECHNICIAN CPT-43266 Venipuncture Draw Fee 08:31:11 CDT CPT-98204 Aspir/Inject Med Joint 18:17:28 CDT CPT-54804 Venipuncture Draw Fee 10:13:30 CDT CPT-31691 Venipuncture Draw Fee 08:31:43 SOLID WASTE TECHNICIAN CPT-JTINJ Joint Injection 18:34:50 CDT CPT-59459 Knee 3V 12:25:09 CDT CPT-76632 Venipuncture Draw Fee 12:15:57 CDT CPT-060 Medical Surveillance Exam 21:31:43 CDT 2011 CPT-41656 Venipuncture Draw Fee 08:32:05 SOLID WASTE TECHNICIAN CPT-OV Office Visit 18:19:06 CDT
--- OUTSIDE RECORDS SUMMARY | 2020-01-18 12:21 | XMS REPORT | Clinical Summary ---
[...] Coronary atherosclerosis of unspecified type of vessel, [place] or graft EDEMA 782.3 Resolved Mitch Urbina [...] tab to equal 7mg daily WARFARIN SODIUM 95388615783 Active Mitch Urbina DO Active COLCRYS 0.6 MG TABS 1 tab qid prn gout COLCHICINE 51126713640 Active Kathie Juan RPT,RMA Active INVOKANA 100 MG ORAL TABS 1 tablet orally daily CANAGLIFLOZIN 03678657349 Active Mitch Urbina DO Active MINOXIDIL 2.5 MG TABS 1 tablet daily for high blood pressure 10/23 MINOXIDIL 57172385345 Active Domi Rivera MA Active AMLODIPINE BESYLATE 5 MG TABS 1 tablet by mouth daily AMLODIPINE BESYLATE 38244598974 Active Mitch Urbina DO Active MECLIZINE HCL 25 MG TAB 1 po tid 3 days, then 1/2 tab tid 3 days MECLIZINE HCL 76107107948 No Longer Active Corey SEGURA Active ALLOPURINOL 300 MG TABS Take 1 tablet by mouth daily 2 ALLOPURINOL 14307663573 No Longer Active Corey SEGURA Activ e CLONIDINE HCL 0.1 MG TABS 1 po bid 7 days, then 1/2 tab po b id 7 days CLONIDINE HCL 80781980132 No Longer Active Corey SEGURA Active COUMADIN 5 MG TABS 1 tab PO daily WARFARIN SODIUM 60909436711 Active Mitch Urbina DO Active COUMADIN 4 MG TABS 1 tablet daily WARFARIN SODI UM 67886752200 No Longer Active Corey SEGURA Active POLYTRIM 08157-5.1 UNIT/ML-% SOLN 1 drop in affected e ye every 3 hours while awake x 7 days POLYMYXIN B-TRIMETHOPRIM 69161091913 N o Longer Active Corey SEGURA Active LOSARTAN POTASSIUM-HCTZ 100-12.5 MG TABS 1 by mouth da rocky for high blood pressure LOSARTAN POTASSIUM-HCTZ 86932572681 Active Stephy Urbina DO Active LISINOPRIL-HYDROCHLOROTHIAZIDE 20-12.5 MG TABS 1 tab by mouth da rocky LISINOPRIL-HYDROCHLOROTHIAZIDE 95834620988 No Longer Active Mitch luis DO Active LISINOPRIL 20 MG TABS 1 tab po at HS LISINOPRIL 59527931755 No Longer Active Mitch Urbina DO Active COUMADIN 5 MG TABS 1 by mouth every other day WARFARIN SODIUM 72683445960 No Longer Active Mitch Urbina DO Active COUMADIN 6 MG TABS 1 by mouth every other day WARFARIN SODIUM 63160762996 No Longer Active Mitch W Carlitos DO Active SIMVASTATIN 40 MG TABS 1 tab daily at bedtime S IMVASTATIN 23915214118 Active Mitch Urbina DO Active SIMVASTATIN 20 MG TABS 1 tab daily at bedtime S IMVASTATIN 69090558599 No Longer Active Mitch Urbina DO Active LOVENOX 100 MG/ML SC SOLN One injection twice a day 09/15/15 ENOXAPARIN SODIUM 60912521637 No Longer Active Carmine Navarrete ctive JANUVIA 50 MG TABS Take one by mouth daily DIEGO GLIPTIN PHOSPHATE 84054731273 Active Mitch Urbina DO Active JANUVIA 100 MG TABS 1/2 by mouth every day DIEGO GLIPTIN PHOSPHATE 52593464653 No Longer Active Bijal Segal RN Active METFORMIN HCL 500 MG TABS 2 by mouth twice daily METFORMIN HCL 67534000411 Active Mitch Urbina DO Active GLIMEPIRIDE 4 MG TABS 1 tab po bid GLIMEPIRIDE 933155 14117 Active Mitch Urbina DO Active COLCRYS 0.6 MG TABS 1 po q 6 hours prn gout pain 03/02 COLCHICINE 87066149574 No Longer Active Camila Reese Active LISINOPRIL 5 MG TABS 1 by mouth every day LISIN OPRIL 76108056148 No Longer Active Nguyenmolly Perez Active KLOR-CON 20 MEQ PACK Take one by mouth daily 8 POTASSIUM CHLORIDE 65718448003 No Longer Active Nguyen Perez Active FUROSEMIDE 40 MG TABS 1 by mouth daily FUROSEMI DE 14852432743 No Longer Active Nguyenmolly Perez Active PROVIGIL 200 MG TABS 1/2 tab po q day MODAFINIL 25470 804254 Active Mitch Urbina DO Active PROVIGIL 100 MG TABS Take one by mouth daily MO DAFINIL 93672191713 No Longer Active Mitch Urbina DO Active BACTRIM DS 800-160 MG TAB 1 tab by mouth twice daily 2 TRIMETHOPRIM-SULFAMETHOXAZOLE 04295670858 No Longer Active Renan Hays MD Active FAMOTIDINE 20 MG TABS by mouth twice a day FAMOTI DINE 48288500460 Active Mitch Urbina DO Active ADULT ASPIRIN LOW STRENGTH 81 MG TBDP 1 by mouth every daily ASPIRIN 50759242478 Active Mitch Urbina DO Active METOPROLOL TARTRATE 50 MG TABS 1 by mouth twice daily METOPROLOL TARTRATE 53733149512 Active Mitch Urbina DO Active BACTRIM DS 800-160 MG TAB 1 tab by mouth twice daily 2 BACTRIM DS 800-160 MG TAB 943338 TRIMETHOPRIM-SULFAMETHOXAZOLE Inac tive PROVIGIL 100 MG TABS Take one by mouth daily 4 PROVIGIL 100 MG TABS 911782 MODAFINIL Inactive FUROSEMIDE 40 MG TABS 1 by mouth daily FU ROSEMIDE 40 MG TABS 476636 FUROSEMIDE Inactive KLOR-CON 20 MEQ PACK Take one by mouth daily 8 KLOR-CON 20 MEQ PACK 642723 POTASSIUM CHLORIDE Inactive LISINOPRIL 5 MG TABS 1 by mouth every day LISINOPRIL 5 MG TABS 690487 LISINOPRIL Inactive COLCRYS 0.6 MG TABS 1 po q 6 hours prn gout pain 03/02 COLCRYS 0.6 MG TABS 038275 COLCHICINE Inactive JANUVIA 100 MG TABS 1/2 by mouth every day JANUVI A 100 MG TABS SITAGLIPTIN PHOSPHATE Inactive SIMVASTATIN 20 MG TABS 1 tab daily at bedtime SIMVASTATIN 20 MG TABS 435622 SIMVASTATIN Inactive COUMADIN 6 MG TABS 1 by mouth every other day COUMADIN 6 MG TABS 700113 WARFARIN SODIUM Inactive COUMADIN 5 MG TABS 1 by mouth every other day COUMADIN 5 MG TABS 837022 WARFARIN SODIUM Inactive LISINOPRIL 20 MG TABS 1 tab po at HS KOKI NOPRIL 20 MG TABS 827681 LISINOPRIL Inactive LISINOPRIL-HYDROCHLOROTHIAZIDE 20-12.5 MG TABS 1 tab by mouth da rocky LISINOPRIL-HYDROCHLOROTHIAZIDE 20-12.5 MG TABS 888721 LISINOPRIL-HYDROCHLOROTHIAZIDE Inactive POLYTRIM 62629-6.1 UNIT/ML-% SOLN 1 drop in affected e ye every 3 hours while awake x 7 days POLYTRIM 60321-3.1 UNIT/ML-% SOLN 84151 7 POLYMYXIN B-TRIMETHOPRIM Inactive COUMADIN 4 MG TABS 1 tablet daily COUMADIN 4 MG TABS 939048 WARFARIN SODIUM Inactive CLONIDINE HCL 0.1 MG TABS 1 po bid 7 days, then 1/2 tab po b id 7 days CLONIDINE HCL 0.1 MG TABS 001853 CLONIDINE HCL I nactive ALLOPURINOL 300 MG TABS Take 1 tablet by mouth daily 2 ALLOPURINOL 300 MG TABS 889119 ALLOPURINOL Inactive MECLIZINE HCL 25 MG TAB 1 po tid 3 days, then 1/2 tab tid 3 days MECLIZINE HCL 25 MG TAB 734445 MECLIZINE HCL Inactive LOVENOX 100 MG/ML SC SOLN One injection twice a day 09/15/15 LOVENOX 100 MG/ML SC SOLN 140154 ENOXAPARIN SODIUM Inactive Vital Signs Date Name [...] (E&M) Positive Lab Report: CBC - Hematology platelet count 276 10^3/MM^3 10*3/mm3 791-118 3632/01/14 red blood cell distribution width 18.0 % 11 .6-14.8 mean corpuscular hemoglobin concentration, RBC 32.6 G/DL % 31.8-35.4 mean corpuscular hemoglobin, RBC 26.6 pg 27. 0-31.2 mean corpuscular volume, RBC 82 fL 80-97 hematocrit, blood 37.3 % 41.0-53.0 hemoglobin, blood 12.2 g/dL 13.5-17.5 erythrocyte (RBC) count 4.57 10^6/MM^3 10*6/mm3 4.69-6.1 3 leukocyte count, blood 7.1 10^3/MM^3 10*3/mm3 4.6-10.2 Lab Report: Comp. Metabolic Panel - Chem istry aspartate aminotransferase (SGOT), serum 26 U/L 15-37 carbon dioxide, venous blood 25.4 mmol/L 21.0-32 .0 potassium, serum 4.2 mmol/L 3.5-5.2 chloride, serum 100 mmol/L 98-107 blood glucose 241 mg/dL 65-110 urea nitrogen, blood 25 mg/dL 7-18 calcium, serum 9.7 mg/dL 8.5-10.1 bilirubin, serum, total 0.70 mg/dL 0.00-1.00 sodium, serum 136 mmol/L 486-408 1540/01/14 creatinine, serum 1.11 mg/dL 0.55-1.30 alanine aminotransferase [...] PANEL, MICROALB/CREAT W/RATIO, HGBA1C, CBC - Chemistry LDL cholesterol, serum 60 mg/dL 0-130 cholesterol, serum 136 mg/dL 609-031 2990/08/09 triglyceride, serum, fasting 187 mg/dL 30-200 aspartate aminotransferase (SGOT), serum 24 U/L 15-37 alanine aminotransferase (SGPT), serum 29 U/L 12-78 albumin/creatinine ratio, urine < 30 mg/g mg/g{creat} 0-2 9 hemoglobin A1C, blood, as % of total hemoglobin 6.3 % 4.3-6.0 HDL cholesterol, serum 39 mg/dL 32-96 bilirubin, [...] 14.5 SECS s 11.1-13.4 prothrombin time (patient) 16.9 SECS s 11.1-13.4 international normalized ratio (INR) 2.0 1.0-3.5 international normalized ratio (INR) 1.5 1.0-3.5 prothrombin time (patient) 15.4 SECS s 11.1-13.4 international normalized ratio (INR) 1.5 1.0-3.5 prothrombin time (patient) 15.8 SECS s 11.1-13.4 international normalized ratio (INR) 1.8 1.0-3.5 prothrombin time (patient) 16.2 SECS s 11.1-13.4 international normalized ratio (INR) 1.8 1.0-3.5 international normalized ratio (INR) 2.4 1.0-3.5 prothrombin time (patient) 18.9 SECS s 11.1-13.4 Encounters Code Encounter Date Provider Facility CPT-80288 Level 3 Est. Patient 14:21:06 CDT Mitch luis [facility] CPT-06254 Level 3 Est. Patient 14:52:06 [facility] Level 3 Est. Patient 09:34:30 CORE SHAPER Mitch luis [facility] CPT-58115 Level 3 Est. Patient 09:37:15 CDT Mitch W L janelle [facility] CPT-85796 Level 3 Est. Patient 17:01:00 CORE SHAPER Mitch W L janelle [facility] CPT-74346 Level 3 Est. Patient 13:53:19 CORE SHAPER Mitch luis [facility] CPT-33599 Level 3 Est. Patient 19:19:37 CORE SHAPER Mitch W L janelle [facility] CPT-11755 Level 3 Est. Patient 13:25:53 CORE SHAPER Tavo toure MD [facility] CPT-31521 Level 3 Est. Patient 18:17:28 CDT Mitch W L janelle [facility] CPT-94215 Level 3 Est. Patient 15:22:57 CDT Mitch Ambrose L janelle [facility] CPT-48902 Level 3 Est. Patient 18:21:50 CDT Mitch W L janelle [facility] CPT-21878 Level 3 Est. Patient 18:20:38 CDT Mitch W L janelle [facility] CPT-18559 Level 3 Est. Patient 15:37:55 CDT Mitch W L ee [facility] CPT-80506 Level 2 Est. Patient 15:54:44 CDT Carmine benton MD [facility]-48115 Level 3 Est. Patient 21:46:01 CORE SHAPER Mitch luis [facility] CPT-82546 Level 3 Est. Patient 22:15:50 CDT Mitch luis [facility] CPT-77229 Level 3 Est. Patient 10:48:15 CDT Mitch luis DO [facility] CPT-31623 Level 3 Est. Patient 23:20:57 CDT Tavo toure MD [facility] CPT-52999 Level 3 Est. Patient 16:26:13 CDT Mitch luis [facility] Procedures Code Procedure Name Date Entry Date Standard Desc ription CPT-41955 Hemoccult IFOBT - LAB USE ONLY 10:27:22 CDT CPT-86448 Venipuncture Draw Fee 08:27:08 CDT CPT-63583 Liver Profile - LAB USE ONLY 08:27:07 CDT 2 CPT-87742 Microalbumin - LAB USE ONLY 08:27:07 CDT 20 25/05/09 CPT-90353 PT/INR - LAB USE ONLY 08:27:07 CDT CPT-09582 HGBA1C - LAB USE ONLY 08:27:07 CDT CPT-62060 CBC - LAB USE ONLY 08:27:07 CDT CPT-15045 Venipuncture Draw Fee 11:09:14 CDT CPT-09301 Venipuncture Draw Fee 08:32:21 CORE SHAPER CPT-06064 Venipuncture Draw Fee 09:38:56 CORE SHAPER CPT-88399 No Charge Offi Visit 21:36:07 CDT 1 CPT-91334 Venipuncture Draw Fee 10:13:28 CORE SHAPER CPT-82062 Venipuncture Draw Fee 08:31:11 CDT CPT-55570 Aspir/Inject Med Joint 18:17:28 CDT CPT-20811 Venipuncture Draw Fee 10:13:30 CDT CPT-65675 Venipuncture Draw Fee 08:31:43 CORE SHAPER CPT-JTINJ Joint Injection 18:34:50 CDT CPT-47651 Knee 3V 12:25:09 CDT CPT-72200 Venipuncture Draw Fee 12:15:57 CDT CPT-060 Medical Surveillance Exam 21:31:43 CDT 2011 CPT-44607 Venipuncture Draw Fee 08:32:05 CORE SHAPER CPT-OV Office Visit 18:19:06 CDT
--- OUTSIDE RECORDS SUMMARY | 2020-01-18 12:21 | XMS REPORT | Clinical Summary ---
Author Author Admin, Mitch Leon Organization [facility] Address Unknown Phone Unavailable Allergies, Adverse [...] atherosclerosis of unspecified type of vessel, [place] or graft EDEMA 782.3 Resolved Mitch Urbina [...] Carlitos DO Gout, unspecified BRUISE 924.9 Resolved Micth Arnol Carlitos DO Co ntusion of unspecified [...] DO Sebaceous cyst Cellulitis 682.9 Resolved Mitch Ambrose Carlitos DO Cellulitis and abscess of unspecified [...] Lower extremity edema, left 782.3 Active Mitch Urbina DO Edema SEROMA ICD-998.13 Inactive Mitch Urbina DO REACTIVE HYPOGLYCEMIA ICD-251.2 Inactive Mitch Urbina DO LONG-TERM (CURRENT) USE OF ANTICOAGULANTS ICD-V58.61 Inactive Mitch Urbina DO EDEMA ICD-782.3 Inactive Mitch Urbina DO DIZZINESS ICD-780.4 Inactive Mitch Urbina DO 10/23 GOUT, RIGHT WRIST ICD-274.9 Inactive Mitch Ambrose Lenore serra DO BRUISE ICD-924.9 Inactive Mitch Urbina OLECRANON BURSITIS, RIGHT ICD-726.33 Inactive Mitch Arnol Carlitos UNSPECIFIED ANEMIA ICD-285.9 Inactive Mitch Castellano janelle DO Malaise and fatigue ICD-780.79 Inactive Mitch Ambrose Carlitos Cough, chronic ICD-786.2 Inactive Mitch Tejeda O Sebaceous cyst, infected ICD-706.2 Inactive Mitch Arnol Carlitos VELASQUEZ Cellulitis ICD-682.9 Inactive Mitch Urbina 10/23 CELLULITIS, GROIN, LEFT ICD-682.2 Inactive Zoya Urbina DO Medication List Medication Instructions Start Date Stop Date Generic Name NDC Status Provider Patient Instruction GLIMEPIRIDE 2 MG ORAL TABS 1 po BID GLIMEPIRIDE 04158 568156 Active Ana Wallace Active KEFLEX 500 MG CAP 1 po qid CEPHALEXIN 563356274 20 No Longer Active Mitch Urbina DO Active LOSARTAN POTASSIUM 100 MG TABS 1 pill by mouth daily, for bl ood pressure LOSARTAN POTASSIUM 06614147917 Active Ana Wallace Active AMLODIPINE BESYLATE 5 MG TABS 1 tablet by mouth daily AMLODIPINE BESYLATE 66884625303 No Longer Active Joe Williamson APRN Active MITIGARE 0.6 MG ORAL CAPS 2 capsules at onset of gout pain, then take one capsule at 1 hour if symptoms persist. COLCHICINE 59 886622657 Active Mitch Urbina DO Active COUMADIN 1 MG TAB 2 tabs orally daily with the 5mg tab to equal 7mg daily WARFARIN SODIUM 10121115628 Active Ana Wallace Active COLCRYS 0.6 MG TABS 1 tab qid prn gout COLCHICINE 71881263460 Active Norma Cazares Active INVOKANA 100 MG ORAL TABS 1 tablet orally daily CANAGLIFLOZIN 69947802208 Active Mitch Urbina DO Active MINOXIDIL 2.5 MG TABS 1 tablet daily for high blood pressure 10/23 MINOXIDIL 96136559988 Active Mitch Urbina DO Active MECLIZINE HCL 25 MG TAB 1 po tid 3 days, then 1/2 tab tid 3 days MECLIZINE HCL 18815636860 No Longer Active Corey SEGURA Active ALLOPURINOL 300 MG TABS Take 1 tablet by mouth daily 2 ALLOPURINOL 95543102490 No Longer Active Corey SEGURA Activ e CLONIDINE HCL 0.1 MG TABS 1 po bid 7 days, then 1/2 tab po b id 7 days CLONIDINE HCL 83926271415 No Longer Active Corey SEGURA Active COUMADIN 5 MG TABS 1 tab PO daily WARFARIN SODIUM 94564176136 Active Mitch Urbina DO Active COUMADIN 4 MG TABS 1 tablet daily WARFARIN SODI UM 30384830165 No Longer Active Corey SEGURA Active POLYTRIM 02901-2.1 UNIT/ML-% SOLN 1 drop in affected e ye every 3 hours while awake x 7 days POLYMYXIN B-TRIMETHOPRIM 73594690925 N o Longer Active Corey SEGURA Active LOSARTAN POTASSIUM-HCTZ 100-12.5 MG TABS 1 by mouth da [place] for high blood pressure LOSARTAN POTASSIUM-HCTZ 08037038270 No Longer A ctive Mitch Urbina DO Active LISINOPRIL-HYDROCHLOROTHIAZIDE 20-12.5 MG TABS 1 tab by mouth da rocky LISINOPRIL-HYDROCHLOROTHIAZIDE 64943583726 No Longer Active Mitch luis DO Active LISINOPRIL 20 MG TABS 1 tab po at HS LISINOPRIL 14240979224 No Longer Active Mitch Urbina DO Active COUMADIN 5 MG TABS 1 by mouth every other day WARFARIN SODIUM 29997972202 No Longer Active Mitch Urbina DO Active COUMADIN 6 MG TABS 1 by mouth every other day WARFARIN SODIUM 17379559893 No Longer Active Mitch Urbina DO Active SIMVASTATIN 40 MG TABS 1 tab daily at bedtime S IMVASTATIN 95644026735 Active Mitch Urbina DO Active SIMVASTATIN 20 MG TABS 1 tab daily at bedtime S IMVASTATIN 17768900318 No Longer Active Mitch Urbina DO Active LOVENOX 100 MG/ML SC SOLN One injection twice a day 09/15/15 ENOXAPARIN SODIUM 25648460147 No Longer Active Carmine Yusuf MD A ctive JANUVIA 50 MG TABS Take one by mouth daily DIEGO GLIPTIN PHOSPHATE 17414914468 Active Mitch Urbina DO Active JANUVIA 100 MG TABS 1/2 by mouth every day DIEGO GLIPTIN PHOSPHATE 10783866676 No Longer Active Bijal Segal RN Active METFORMIN HCL 500 MG TABS 2 by mouth twice daily METFORMIN HCL 90461611970 Active Mitch Urbina DO Active COLCRYS 0.6 MG TABS 1 po q 6 hours prn gout pain 03/02 COLCHICINE 64495497622 No Longer Active Camila Reese Active LISINOPRIL 5 MG TABS 1 by mouth every day LISIN OPRIL 23913181762 No Longer Active Nguyen Perez Active KLOR-CON 20 MEQ PACK Take one by mouth daily 8 POTASSIUM CHLORIDE 49469667948 No Longer Active Nguyen Perez Active FUROSEMIDE 40 MG TABS 1 by mouth daily FUROSEMI DE 45407235098 No Longer Active Nguyen Perez Active PROVIGIL 200 MG TABS 1/2 tab po q day MODAFINIL 94444 592154 Active Mitch Urbina DO Active PROVIGIL 100 MG TABS Take one by mouth daily MO DAFINIL 64227761073 No Longer Active Mitch Urbina DO Active BACTRIM DS 800-160 MG TAB 1 tab by mouth twice daily 2 TRIMETHOPRIM-SULFAMETHOXAZOLE 32169470114 No Longer Active Renan Hays MD Active FAMOTIDINE 20 MG TABS by mouth twice a day FAMOTI DINE 56209215788 Active iMtch Urbina DO Active ADULT ASPIRIN LOW STRENGTH 81 MG TBDP 1 by mouth every daily ASPIRIN 03826286620 Active Mitch Urbina DO Active METOPROLOL TARTRATE 50 MG TABS 1 by mouth twice daily METOPROLOL TARTRATE 95249227952 Active Mitch Urbina DO Active BACTRIM DS 800-160 MG TAB 1 tab by mouth twice daily 2 BACTRIM DS 800-160 MG TAB 744236 TRIMETHOPRIM-SULFAMETHOXAZOLE Inac tive PROVIGIL 100 MG TABS Take one by mouth daily 4 PROVIGIL 100 MG TABS 457457 MODAFINIL Inactive FUROSEMIDE 40 MG TABS 1 by mouth daily FU ROSEMIDE 40 MG TABS 144563 FUROSEMIDE Inactive KLOR-CON 20 MEQ PACK Take one by mouth daily 8 KLOR-CON 20 MEQ PACK 1438323 POTASSIUM CHLORIDE Inactive LISINOPRIL 5 MG TABS 1 by mouth every day LISINOPRIL 5 MG TABS 155904 LISINOPRIL Inactive COLCRYS 0.6 MG TABS 1 po q 6 hours prn gout pain 03/02 COLCRYS 0.6 MG TABS 924154 COLCHICINE Inactive JANUVIA 100 MG TABS 1/2 by mouth every day JANUVI A 100 MG TABS SITAGLIPTIN PHOSPHATE Inactive SIMVASTATIN 20 MG TABS 1 tab daily at bedtime SIMVASTATIN 20 MG TABS 292435 SIMVASTATIN Inactive COUMADIN 6 MG TABS 1 by mouth every other day COUMADIN 6 MG TABS 365439 WARFARIN SODIUM Inactive COUMADIN 5 MG TABS 1 by mouth every other day COUMADIN 5 MG TABS 345530 WARFARIN SODIUM Inactive LISINOPRIL 20 MG TABS 1 tab po at HS KOKI NOPRIL 20 MG TABS 814363 LISINOPRIL Inactive LISINOPRIL-HYDROCHLOROTHIAZIDE 20-12.5 MG TABS 1 tab by mouth da rocky LISINOPRIL-HYDROCHLOROTHIAZIDE 20-12.5 MG TABS 694889 LISINOPRIL-HYDROCHLOROTHIAZIDE Inactive POLYTRIM 17433-4.1 UNIT/ML-% SOLN 1 drop in affected e ye every 3 hours while awake x 7 days POLYTRIM 38588-0.1 UNIT/ML-% SOLN 59223 7 POLYMYXIN B-TRIMETHOPRIM Inactive COUMADIN 4 MG TABS 1 tablet daily COUMADIN 4 MG TABS 334118 WARFARIN SODIUM Inactive CLONIDINE HCL 0.1 MG TABS 1 po bid 7 days, then 1/2 tab po b id 7 days CLONIDINE HCL 0.1 MG TABS 688574 CLONIDINE HCL I nactive ALLOPURINOL 300 MG TABS Take 1 tablet by mouth daily 2 ALLOPURINOL 300 MG TABS 948599 ALLOPURINOL Inactive MECLIZINE HCL 25 MG TAB 1 po tid 3 days, then 1/2 tab tid 3 days MECLIZINE HCL 25 MG TAB 280198 MECLIZINE HCL Inactive AMLODIPINE BESYLATE 5 MG TABS 1 tablet by mouth daily AMLODIPINE BESYLATE 5 MG TABS 613048 AMLODIPINE BESYLATE Inactive KEFLEX 500 MG CAP 1 po qid KEFLEX 500 MG CAP 30 9114 CEPHALEXIN Inactive LOVENOX 100 MG/ML SC SOLN One injection twice a day 09/15/15 LOVENOX 100 MG/ML SC SOLN 464576 ENOXAPARIN SODIUM Inactive Vital Signs Date Name [...] - Chem istry sodium, serum 139 mmol/L 148-384 2777/07/17 urea nitrogen, blood 29 mg/dL 7-18 creatinine, serum 1.24 mg/dL 0.60-1.30 sodium, serum 141 mmol/L 523-997 9675/08/07 potassium, serum 4.5 mmol/L 3.5-5.2 chloride, serum 102 mmol/L 98-107 carbon dioxide, venous blood 31.7 mmol/L 21.0-32 .0 blood glucose 117 mg/dL 65-110 calcium, serum 10.5 mg/dL 8.5-10.1 urea nitrogen, blood 26 mg/dL 7-18 creatinine, serum 1.15 mg/dL 0.60-1.30 potassium, serum 4.2 mmol/L 3.5-5.2 chloride, serum 102 mmol/L 98-107 carbon dioxide, venous blood 28.9 mmol/L 21.0-32 .0 blood glucose 211 mg/dL 65-110 calcium, serum 10.6 mg/dL 8.5-10.1 Lab Report: CBC, MICROALB/CREAT W/RATIO [...] ... - Chemistry sodium, serum 144 mmol/L 351-286 4570/06/12 creatinine, serum 1.32 mg/dL 0.55-1.30 alanine aminotransferase [...] nitrogen, blood 27 mg/dL 7-18 Lab Report: Prothrombin Time - Coagulati on international normalized ratio (INR) 2.7 1.0-3.5 prothrombin time (patient) 21.3 SECS s 11.1-13.4 international normalized ratio (INR) 2.0 1.0-3.5 prothrombin time (patient) 17.8 SECS s 11.1-13.4 prothrombin time (patient) 19.9 SECS s 11.1-13.4 international normalized ratio (INR) 2.4 1.0-3.5 Encounters Code Encounter Date Provider Facility CPT-33648 Level 3 Est. Patient 18:25:53 CDT Mitch luis [facility] CPT-98305 Level 3 Est. Patient 19:43:34 CDT Mitch luis [facility] CPT-01256 Level 4 Est. Patient 09:30:18 CDT Mitch luis [facility] CPT-81199 Level 3 Est. Patient 15:10:14 CDT Joe kamara [facility] CPT-55395 Level 3 Est. Patient 15:03:46 CDT Joe Jason anh [facility] CPT-59351 Level 3 Est. Patient 14:21:06 CDT Mitch luis [facility] CPT-28488 Level 3 Est. Patient 14:52:06 CDT Joe Jason kamara [facility] CPT-37624 Level 3 Est. Patient 09:34:30 OVEN ROASTER Mitch luis [facility] CPT-72845 Level 3 Est. Patient 09:37:15 CDT Mitch luis [facility] CPT-97361 Level 3 Est. Patient 17:01:00 OVEN ROASTER Mitch luis [facility] CPT-18876 Level 3 Est. Patient 13:53:19 OVEN ROASTER Mitch luis [facility] CPT-79898 Level 3 Est. Patient 19:19:37 OVEN ROASTER Mitch luis [facility] CPT-37340 Level 3 Est. Patient 13:25:53 OVEN ROASTER Tavo toure MD [facility] CPT-40223 Level 3 Est. Patient 18:17:28 CDT Mitch luis [facility] CPT-38952 Level 3 Est. Patient 15:22:57 CDT Mitch luis [facility] CPT-08516 Level 3 Est. Patient 18:21:50 CDT Mitch W L janelle [facility] CPT-02813 Level 3 Est. Patient 18:20:38 CDT Mitch W L janelle [facility] CPT-70350 Level 3 Est. Patient 15:37:55 CDT Mitch W L janelle [facility] CPT-02768 Level 2 Est. Patient 15:54:44 CDT Carmine benton MD [facility] CPT-33508 Level 3 Est. Patient 21:46:01 OVEN ROASTER Mitch luis [facility] CPT-84409 Level 3 Est. Patient 22:15:50 CDT Mitch luis [facility] CPT-37882 Level 3 Est. Patient 10:48:15 CDT Mitch luis [facility] CPT-67468 Level 3 Est. Patient 23:20:57 CDT Tavo toure MD [facility] CPT-91042 Level 3 Est. Patient 16:26:13 CDT Mitch Ambrose Nona luis [facility] Procedures Code Procedure Name Date Entry Date Standard Desc ription CPT-06233 Venipuncture Draw Fee 09:26:17 CDT CPT-34320 PT/INR - LAB USE ONLY 13:32:49 OVEN ROASTER CPT-56124 Venipuncture Draw Fee 13:32:49 OVEN ROASTER CPT-39946 PT/INR - LAB USE ONLY 10:34:49 OVEN ROASTER CPT-69425 Venipuncture Draw Fee 10:34:48 OVEN ROASTER CPT-75250 PT/INR - LAB USE ONLY 09:22:03 OVEN ROASTER CPT-81300 Venipuncture Draw Fee 09:22:02 OVEN ROASTER CPT-60637 Hemoccult IFOBT - LAB USE ONLY 10:27:22 CDT CPT-26236 Venipuncture Draw Fee 08:27:08 CDT CPT-71146 Liver Profile - LAB USE ONLY 08:27:07 CDT 2 CPT-65278 Microalbumin - LAB USE ONLY 08:27:07 CDT 20 25/05/09 CPT-39840 PT/INR - LAB USE ONLY 08:27:07 CDT CPT-15462 HGBA1C - LAB USE ONLY 08:27:07 CDT CPT-35907 CBC - LAB USE ONLY 08:27:07 CDT CPT-77385 Venipuncture Draw Fee 11:09:14 CDT CPT-96285 Venipuncture Draw Fee 08:32:21 OVEN ROASTER CPT-88006 Venipuncture Draw Fee 09:38:56 OVEN ROASTER CPT-90102 No Charge Offi Visit 21:36:07 CDT 1 CPT-59798 Venipuncture Draw Fee 10:13:28 OVEN ROASTER CPT-48517 Venipuncture Draw Fee 08:31:11 CDT CPT-10484 Aspir/Inject Med Joint 18:17:28 CDT CPT-50382 Venipuncture Draw Fee 10:13:30 CDT CPT-96939 Venipuncture Draw Fee 08:31:43 OVEN ROASTER CPT-JTINJ Joint Injection 18:34:50 CDT CPT-70073 Knee 3V 12:25:09 CDT CPT-76271 Venipuncture Draw Fee 12:15:57 CDT CPT-060 Medical Surveillance Exam 21:31:43 CDT 2011 CPT-05921 Venipuncture Draw Fee 08:32:05 OVEN ROASTER CPT-OV Office Visit 18:19:06 CDT
[2020-01-18] MEDS ORDERED: BUPIVACAINE 0.5% 30 ML (SENSORCAINE) VIAL ONE (12:22)
[2020-01-18] MEDS ORDERED: LIDOCAINE 1% INJ 20 ML 20 ML VIAL ONE (12:22)
--- OUTSIDE RECORDS SUMMARY | 2020-01-18 12:22 | XMS REPORT | Clinical Summary ---
Author Author Admin, Mitch Leon Organization [facility] Address Unknown Phone Unavailable Allergies, Adverse [...] 500 MG CAP 1 po qid CEPHALEXIN 753368383 20 No Longer Active Mitch Urbina DO Active LOSARTAN POTASSIUM 100 MG TABS 1 pill by mouth daily, for bl ood pressure LOSARTAN POTASSIUM 06051413090 Active Ana Wallace Active AMLODIPINE BESYLATE 5 MG TABS 1 tablet by mouth daily AMLODIPINE BESYLATE 08182588438 No Longer Active Joe Williamson APRN Active MITIGARE 0.6 MG ORAL CAPS 2 capsules at onset of gout pain, then take one capsule at 1 hour if symptoms persist. COLCHICINE 59 660957818 Active Mitch Ubrina DO Active COUMADIN 1 MG TAB 2 tabs orally daily with the 5mg tab to equal 7mg daily WARFARIN SODIUM 75211724383 Active Mitch Urbina DO Active COLCRYS 0.6 MG TABS 1 tab qid prn gout COLCHICINE 05175812342 Active Norma Cazares Active INVOKANA 100 MG ORAL TABS 1 tablet orally daily CANAGLIFLOZIN 13700472105 Active Mitch Urbina DO Active MINOXIDIL 2.5 MG TABS 1 tablet daily for high blood pressure 10/23 MINOXIDIL 83948358510 Active Mitch Urbina DO Active MECLIZINE HCL 25 MG TAB 1 po tid 3 days, then 1/2 tab tid 3 days MECLIZINE HCL 63272233350 No Longer Active Corey SEGURA Active ALLOPURINOL 300 MG TABS Take 1 tablet by mouth daily 2 ALLOPURINOL 35458990560 No Longer Active Corey SEGURA Activ e CLONIDINE HCL 0.1 MG TABS 1 po bid 7 days, then 1/2 tab po b id 7 days CLONIDINE HCL 17147920707 No Longer Active Corey SEGURA Active COUMADIN 5 MG TABS 1 tab PO daily WARFARIN SODIUM 89595976200 Active Mitch Urbina DO Active COUMADIN 4 MG TABS 1 tablet daily WARFARIN SODI UM 40053371520 No Longer Active Corey SEGURA Active POLYTRIM 57033-6.1 UNIT/ML-% SOLN 1 drop in affected e ye every 3 hours while awake x 7 days POLYMYXIN B-TRIMETHOPRIM 57924457773 N o Longer Active Corey SEGURA Active LOSARTAN POTASSIUM-HCTZ 100-12.5 MG TABS 1 by mouth da rocky for high blood pressure LOSARTAN POTASSIUM-HCTZ 47255733481 No Longer A ctive Mitch Urbina DO Active LISINOPRIL-HYDROCHLOROTHIAZIDE 20-12.5 MG TABS 1 tab by mouth da rocky LISINOPRIL-HYDROCHLOROTHIAZIDE 63172624416 No Longer Active Mitch luis DO Active LISINOPRIL 20 MG TABS 1 tab po at HS LISINOPRIL 32571495985 No Longer Active Mitch Urbina DO Active COUMADIN 5 MG TABS 1 by mouth every other day WARFARIN SODIUM 15675063575 No Longer Active Mitch Urbina DO Active COUMADIN 6 MG TABS 1 by mouth every other day WARFARIN SODIUM 52756535529 No Longer Active Mitch Urbina DO Active SIMVASTATIN 40 MG TABS 1 tab daily at bedtime S IMVASTATIN 97181243904 Active Mitch Urbina DO Active SIMVASTATIN 20 MG TABS 1 tab daily at bedtime S IMVASTATIN 48834066742 No Longer Active Mitch Urbina DO Active LOVENOX 100 MG/ML SC SOLN One injection twice a day 09/15/15 ENOXAPARIN SODIUM 88827928524 No Longer Active Carmine Navarrete ctive JANUVIA 50 MG TABS Take one by mouth daily DIEGO GLIPTIN PHOSPHATE 75184826497 Active Mitch Urbina DO Active JANUVIA 100 MG TABS 1/2 by mouth every day DIEGO GLIPTIN PHOSPHATE 73852349692 No Longer Active Bijal Segal RN Active METFORMIN HCL 500 MG TABS 2 by mouth twice daily METFORMIN HCL 16890782534 Active Mitch Urbina DO Active GLIMEPIRIDE 4 MG TABS 1 tab po bid GLIMEPIRIDE 132463 47497 Active Mitch Urbina DO Active COLCRYS 0.6 MG TABS 1 po q 6 hours prn gout pain 03/02 COLCHICINE 39852873945 No Longer Active Camila Reese Active LISINOPRIL 5 MG TABS 1 by mouth every day LISIN OPRIL 59999328743 No Longer Active Nguyen Perez Active KLOR-CON 20 MEQ PACK Take one by mouth daily 8 POTASSIUM CHLORIDE 05131645055 No Longer Active Nguyen Perez Active FUROSEMIDE 40 MG TABS 1 by mouth daily FUROSEMI DE 85710047711 No Longer Active Nguyen Perez Active PROVIGIL 200 MG TABS 1/2 tab po q day MODAFINIL 18584 075743 Active Mitch Urbina DO Active PROVIGIL 100 MG TABS Take one by mouth daily MO DAFINIL 78248460377 No Longer Active Mitch Urbina DO Active BACTRIM DS 800-160 MG TAB 1 tab by mouth twice daily 2 TRIMETHOPRIM-SULFAMETHOXAZOLE 13611933326 No Longer Active Renan Hasy MD Active FAMOTIDINE 20 MG TABS by mouth twice a day FAMOTI DINE 67239068951 Active Mitch Urbina DO Active ADULT ASPIRIN LOW STRENGTH 81 MG TBDP 1 by mouth every daily ASPIRIN 55774308671 Active Mitch Urbina DO Active METOPROLOL TARTRATE 50 MG TABS 1 by mouth twice daily METOPROLOL TARTRATE 33061558055 Active Mitch Urbina DO Active BACTRIM DS 800-160 MG TAB 1 tab by mouth twice daily 2 BACTRIM DS 800-160 MG TAB 027956 TRIMETHOPRIM-SULFAMETHOXAZOLE Inac tive PROVIGIL 100 MG TABS Take one by mouth daily 4 PROVIGIL 100 MG TABS 371421 MODAFINIL Inactive FUROSEMIDE 40 MG TABS 1 by mouth daily FU ROSEMIDE 40 MG TABS 402046 FUROSEMIDE Inactive KLOR-CON 20 MEQ PACK Take one by mouth daily 8 KLOR-CON 20 MEQ PACK POTASSIUM CHLORIDE Inactive LISINOPRIL 5 MG TABS 1 by mouth every day LISINOPRIL 5 MG TABS 461571 LISINOPRIL Inactive COLCRYS 0.6 MG TABS 1 po q 6 hours prn gout pain 03/02 COLCRYS 0.6 MG TABS 054819 COLCHICINE Inactive JANUVIA 100 MG TABS 1/2 by mouth every day JANUVI A 100 MG TABS SITAGLIPTIN PHOSPHATE Inactive SIMVASTATIN 20 MG TABS 1 tab daily at bedtime SIMVASTATIN 20 MG TABS 399431 SIMVASTATIN Inactive COUMADIN 6 MG TABS 1 by mouth every other day COUMADIN 6 MG TABS 723349 WARFARIN SODIUM Inactive COUMADIN 5 MG TABS 1 by mouth every other day COUMADIN 5 MG TABS 881368 WARFARIN SODIUM Inactive LISINOPRIL 20 MG TABS 1 tab po at HS KOKI NOPRIL 20 MG TABS 606803 LISINOPRIL Inactive LISINOPRIL-HYDROCHLOROTHIAZIDE 20-12.5 MG TABS 1 tab by mouth da rocky LISINOPRIL-HYDROCHLOROTHIAZIDE 20-12.5 MG TABS 120237 LISINOPRIL-HYDROCHLOROTHIAZIDE Inactive POLYTRIM 73660-9.1 UNIT/ML-% SOLN 1 drop in affected e ye every 3 hours while awake x 7 days POLYTRIM 75287-8.1 UNIT/ML-% SOLN 75563 7 POLYMYXIN B-TRIMETHOPRIM Inactive COUMADIN 4 MG TABS 1 tablet daily COUMADIN 4 MG TABS 251710 WARFARIN SODIUM Inactive CLONIDINE HCL 0.1 MG TABS 1 po bid 7 days, then 1/2 tab po b id 7 days CLONIDINE HCL 0.1 MG TABS 192303 CLONIDINE HCL I nactive ALLOPURINOL 300 MG TABS Take 1 tablet by mouth daily 2 ALLOPURINOL 300 MG TABS 819563 ALLOPURINOL Inactive MECLIZINE HCL 25 MG TAB 1 po tid 3 days, then 1/2 tab tid 3 days MECLIZINE HCL 25 MG TAB 386594 MECLIZINE HCL Inactive AMLODIPINE BESYLATE 5 MG TABS 1 tablet by mouth daily AMLODIPINE BESYLATE 5 MG TABS 308457 AMLODIPINE BESYLATE Inactive KEFLEX 500 MG CAP 1 po qid KEFLEX 500 MG CAP 30 9114 CEPHALEXIN Inactive LOVENOX 100 MG/ML SC SOLN One injection twice a day 09/15/15 LOVENOX 100 MG/ML SC SOLN 737439 ENOXAPARIN SODIUM Inactive Vital Signs Date Name [...] - Chem istry sodium, serum 139 mmol/L 535-086 5423/07/17 potassium, serum 4.2 mmol/L 3.5-5.2 chloride, serum 102 mmol/L 98-107 carbon dioxide, venous blood 28.9 mmol/L 21.0-32 .0 blood glucose 211 mg/dL 65-110 calcium, serum 10.6 mg/dL 8.5-10.1 urea nitrogen, blood 29 mg/dL 7-18 creatinine, serum 1.24 mg/dL 0.60-1.30 sodium, serum 141 mmol/L 593-158 5401/08/07 potassium, serum 4.5 mmol/L 3.5-5.2 chloride, serum [...] ... - Chemistry sodium, serum 144 mmol/L 270-225 0891/06/12 carbon dioxide, venous blood 26.6 mmol/L 21.0-32 [...] 1.0-3.5 Encounters Code Encounter Date Provider Facility CPT-05557 Level 3 Est. Patient 18:25:[address] [facility] CPT-98254 Level 3 Est. Patient 19:43:[address] [facility] CPT-44372 Level 4 Est. Patient 09:30:[address] [facility] CPT-84436 Level 3 Est. Patient 15:10:14 CDT Joe Jason anh [facility] CPT-73586 Level 3 Est. Patient 15:03:46 CDT Joe Jason anh [facility] CPT-82161 Level 3 Est. Patient 14:21:[address] [facility] CPT-93581 Level 3 Est. Patient 14:52:06 CDT Joe Jason courtangela [facility] CPT-64387 Level 3 Est. Patient 09:34:30 [employer]AR[employer] [address] l[address] [facility] CPT-45277 Level 3 Est. Patient 09:37:[address] [facility] CPT-42910 Level 3 Est. Patient 17:01:00 [employer] Mitch luis [facility] CPT-45437 Level 3 Est. Patient 13:53:19 [employer] Mitch luis [facility] CPT-68418 Level 3 Est. Patient 19:19:37 [employer] Mitch luis [facility] CPT-89684 Level 3 Est. Patient 13:25:53 [employer] Tavo toure MD [facility] CPT-90283 Level 3 Est. Patient 18:17:28 CDT Mitch luis [facility] CPT-74796 Level 3 Est. Patient 15:22:[address] [facility] CPT-33616 Level 3 Est. Patient 18:21:[address] [facility] CPT-43013 Level 3 Est. Patient 18:20:[address] [facility] CPT-57600 Level 3 Est. Patient 15:37:55 CDT Mitch luis [facility] CPT-13311 Level 2 Est. Patient 15:54:44 CDT Carmine benton MD [facility] CPT-10444 Level 3 Est. Patient 21:46:01 [employer] Mitch luis [facility] CPT-58133 Level 3 Est. Patient 22:15:50 CDT Mitch luis [facility] CPT-22572 Level 3 Est. Patient 10:48:15 CDT Mitch luis [facility] CPT-48593 Level 3 Est. Patient 23:20:57 CDT Tavo toure MD [facility] CPT-91043 Level 3 Est. Patient 16:26:13 CDT Mitch luis [facility] Procedures Code Procedure Name Date Entry Date Standard Desc ription CPT-01651 Venipuncture Draw Fee 09:26:17 CDT CPT-91161 PT/INR - LAB USE ONLY 13:32:49 [employer] CPT-27409 Venipuncture Draw Fee 13:32:49 [employer] CPT-94161 PT/INR - LAB USE ONLY 10:34:49 [employer] CPT-05251 Venipuncture Draw Fee 10:34:48 [employer] CPT-38416 PT/INR - LAB USE ONLY 09:22:03 [employer] CPT-57229 Venipuncture Draw Fee 09:22:02 [employer] CPT-64719 Hemoccult IFOBT - LAB USE ONLY 10:27:22 CDT CPT-89709 Venipuncture Draw Fee 08:27:08 CDT CPT-63107 Liver Profile - LAB USE ONLY 08:27:07 CDT 2 CPT-97354 Microalbumin - LAB USE ONLY 08:27:07 CDT 20 25/05/09 CPT-98565 PT/INR - LAB USE ONLY 08:27:07 CDT CPT-34972 HGBA1C - LAB USE ONLY 08:27:07 CDT CPT-47345 CBC - LAB USE ONLY 08:27:07 CDT CPT-96076 Venipuncture Draw Fee 11:09:14 CDT CPT-83521 Venipuncture Draw Fee 08:32:21 [employer] CPT-69338 Venipuncture Draw Fee 09:38:56 [employer] CPT-25400 No Charge Offi Visit 21:36:07 CDT 1 CPT-48202 Venipuncture Draw Fee 10:13:28 [employer] CPT-67557 Venipuncture Draw Fee 08:31:11 CDT CPT-51499 Aspir/Inject Med Joint 18:17:28 CDT CPT-90355 Venipuncture Draw Fee 10:13:30 CDT CPT-78024 Venipuncture Draw Fee 08:31:43 [employer]AR[employer] CPT-JTINJ Joint Injection 18:34:50 CDT CPT-09275 Knee 3V 12:25:09 CDT CPT-82483 Venipuncture Draw Fee 12:15:57 CDT CPT-060 Medical Surveillance Exam 21:31:43 CDT 2011 CPT-80195 Venipuncture Draw Fee 08:32:05 [employer] CPT-OV Office Visit 18:19:06 CDT
--- OUTSIDE RECORDS SUMMARY | 2020-01-18 12:22 | XMS REPORT | Clinical Summary ---
Author Author Admin, Mitch Leon Organization [facility] [place] Address Unknown Phone Unavailable Allergies, Adverse Reactions, [...] Coronary atherosclerosis of unspecified type of vessel, knik or graft EDEMA 782.3 Resolved Mitch Urbina [...] tab to equal 7mg daily WARFARIN SODIUM 48935439986 Active Mitch Urbina DO Active COLCRYS 0.6 MG TABS 1 tab qid prn gout COLCHICINE 37787809332 Active Kathie Juan RPT,RMA Active INVOKANA 100 MG ORAL TABS 1 tablet orally daily CANAGLIFLOZIN 75036198985 Active Mitch Urbina DO Active MINOXIDIL 2.5 MG TABS 1 tablet daily for high blood pressure 10/23 MINOXIDIL 38021169193 Active Domi Rivera MA Active AMLODIPINE BESYLATE 5 MG TABS 1 tablet by mouth daily AMLODIPINE BESYLATE 15962364116 Active Mitch Urbina DO Active MECLIZINE HCL 25 MG TAB 1 po tid 3 days, then 1/2 tab tid 3 days MECLIZINE HCL 20483497431 No Longer Active Corey SEGURA Active ALLOPURINOL 300 MG TABS Take 1 tablet by mouth daily 2 ALLOPURINOL 43491208628 No Longer Active Corey SEGURA Activ e CLONIDINE HCL 0.1 MG TABS 1 po bid 7 days, then 1/2 tab po b id 7 days CLONIDINE HCL 61368163210 No Longer Active Coery SEGURA Active COUMADIN 5 MG TABS 1 tab PO daily WARFARIN SODIUM 74838787137 Active Mitch Urbina DO Active COUMADIN 4 MG TABS 1 tablet daily WARFARIN SODI UM 54838750804 No Longer Active Corey SEGURA Active POLYTRIM 22382-9.1 UNIT/ML-% SOLN 1 drop in affected e ye every 3 hours while awake x 7 days POLYMYXIN B-TRIMETHOPRIM 38620500470 N o Longer Active Corey SEGURA Active LOSARTAN POTASSIUM-HCTZ 100-12.5 MG TABS 1 by mouth da rocky for high blood pressure LOSARTAN POTASSIUM-HCTZ 58572121375 Active Stephy Urbina DO Active LISINOPRIL-HYDROCHLOROTHIAZIDE 20-12.5 MG TABS 1 tab by mouth da rocky LISINOPRIL-HYDROCHLOROTHIAZIDE 72776683623 No Longer Active Mitch luis DO Active LISINOPRIL 20 MG TABS 1 tab po at HS LISINOPRIL 10782753481 No Longer Active Mitch Urbina DO Active COUMADIN 5 MG TABS 1 by mouth every other day WARFARIN SODIUM 26424005467 No Longer Active Mitch Urbina DO Active COUMADIN 6 MG TABS 1 by mouth every other day WARFARIN SODIUM 38962669117 No Longer Active Mitch W [place] DO Active SIMVASTATIN 40 MG TABS 1 tab daily at bedtime S IMVASTATIN 97770509256 Active Mitch Urbina DO Active SIMVASTATIN 20 MG TABS 1 tab daily at bedtime S IMVASTATIN 55055596952 No Longer Active Mitch Urbina DO Active LOVENOX 100 MG/ML SC SOLN One injection twice a day 09/15/15 ENOXAPARIN SODIUM 36175022472 No Longer Active Carmine Navarrete ctive JANUVIA 50 MG TABS Take one by mouth daily DIEGO GLIPTIN PHOSPHATE 92237527020 Active Mitch Urbina DO Active JANUVIA 100 MG TABS 1/2 by mouth every day DIEGO GLIPTIN PHOSPHATE 79998805786 No Longer Active Bijal Segal RN Active METFORMIN HCL 500 MG TABS 2 by mouth twice daily METFORMIN HCL 65478660187 Active Mitch Urbina DO Active GLIMEPIRIDE 4 MG TABS 1 tab po bid GLIMEPIRIDE 109941 17773 Active Mitch Urbina DO Active COLCRYS 0.6 MG TABS 1 po q 6 hours prn gout pain 03/02 COLCHICINE 26553854624 No Longer Active Camila Reese Active LISINOPRIL 5 MG TABS 1 by mouth every day LISIN OPRIL 81082306608 No Longer Active Nguyen Perez Active KLOR-CON 20 MEQ PACK Take one by mouth daily 8 POTASSIUM CHLORIDE 53738631020 No Longer Active Nguyen Perez Active FUROSEMIDE 40 MG TABS 1 by mouth daily FUROSEMI DE 20675356093 No Longer Active Nguyenmolly Perez Active PROVIGIL 200 MG TABS 1/2 tab po q day MODAFINIL 64770 689923 Active Mitch Urbina DO Active PROVIGIL 100 MG TABS Take one by mouth daily MO DAFINIL 06482384182 No Longer Active Mitch Urbina DO Active BACTRIM DS 800-160 MG TAB 1 tab by mouth twice daily 2 TRIMETHOPRIM-SULFAMETHOXAZOLE 31020068114 No Longer Active Renan Hays MD Active FAMOTIDINE 20 MG TABS by mouth twice a day FAMOTI DINE 46685691401 Active Mitch Urbina DO Active ADULT ASPIRIN LOW STRENGTH 81 MG TBDP 1 by mouth every daily ASPIRIN 41231021557 Active Mitch Urbina DO Active METOPROLOL TARTRATE 50 MG TABS 1 by mouth twice daily METOPROLOL TARTRATE 89329789372 Active Mitch Urbina DO Active BACTRIM DS 800-160 MG TAB 1 tab by mouth twice daily 2 BACTRIM DS 800-160 MG TAB 395290 TRIMETHOPRIM-SULFAMETHOXAZOLE Inac tive PROVIGIL 100 MG TABS Take one by mouth daily 4 PROVIGIL 100 MG TABS 631638 MODAFINIL Inactive FUROSEMIDE 40 MG TABS 1 by mouth daily FU ROSEMIDE 40 MG TABS 542256 FUROSEMIDE Inactive KLOR-CON 20 MEQ PACK Take one by mouth daily 8 KLOR-CON 20 MEQ PACK 626624 POTASSIUM CHLORIDE Inactive LISINOPRIL 5 MG TABS 1 by mouth every day LISINOPRIL 5 MG TABS 203744 LISINOPRIL Inactive COLCRYS 0.6 MG TABS 1 po q 6 hours prn gout pain 03/02 COLCRYS 0.6 MG TABS 512840 COLCHICINE Inactive JANUVIA 100 MG TABS 1/2 by mouth every day JANUVI A 100 MG TABS SITAGLIPTIN PHOSPHATE Inactive SIMVASTATIN 20 MG TABS 1 tab daily at bedtime SIMVASTATIN 20 MG TABS 114279 SIMVASTATIN Inactive COUMADIN 6 MG TABS 1 by mouth every other day COUMADIN 6 MG TABS 414366 WARFARIN SODIUM Inactive COUMADIN 5 MG TABS 1 by mouth every other day COUMADIN 5 MG TABS 168614 WARFARIN SODIUM Inactive LISINOPRIL 20 MG TABS 1 tab po at HS KOKI NOPRIL 20 MG TABS 443580 LISINOPRIL Inactive LISINOPRIL-HYDROCHLOROTHIAZIDE 20-12.5 MG TABS 1 tab by mouth da rocky LISINOPRIL-HYDROCHLOROTHIAZIDE 20-12.5 MG TABS 494389 LISINOPRIL-HYDROCHLOROTHIAZIDE Inactive POLYTRIM 23306-2.1 UNIT/ML-% SOLN 1 drop in affected e ye every 3 hours while awake x 7 days POLYTRIM 28456-9.1 UNIT/ML-% SOLN 05019 7 POLYMYXIN B-TRIMETHOPRIM Inactive COUMADIN 4 MG TABS 1 tablet daily COUMADIN 4 MG TABS 790115 WARFARIN SODIUM Inactive CLONIDINE HCL 0.1 MG TABS 1 po bid 7 days, then 1/2 tab po b id 7 days CLONIDINE HCL 0.1 MG TABS 007036 CLONIDINE HCL I nactive ALLOPURINOL 300 MG TABS Take 1 tablet by mouth daily 2 ALLOPURINOL 300 MG TABS 534222 ALLOPURINOL Inactive MECLIZINE HCL 25 MG TAB 1 po tid 3 days, then 1/2 tab tid 3 days MECLIZINE HCL 25 MG TAB 950927 MECLIZINE HCL Inactive LOVENOX 100 MG/ML SC SOLN One injection twice a day 09/15/15 LOVENOX 100 MG/ML SC SOLN 023685 ENOXAPARIN SODIUM Inactive Vital Signs Date Name [...] Range Description Chart Maintenance: hemoccult added to [facility] - Chemistry occult blood, stool (E&M) [...] - Chem istry sodium, serum 136 mmol/L 128-582 1016/01/14 carbon dioxide, venous blood 25.4 mmol/L 21.0-32 [...] CBC - Chemistry cholesterol, serum 136 mg/dL 979-814 2266/08/09 triglyceride, serum, fasting 187 mg/dL 30-200 HDL [...] ratio (INR) 1.8 1.0-3.5 prothrombin time (patient) 16.9 SECS s 11.1-13.4 international normalized ratio (INR) 2.0 1.0-3.5 prothrombin time (patient) 15.4 SECS s 11.1-13.4 international normalized ratio (INR) 1.5 1.0-3.5 international normalized ratio (INR) 1.8 1.0-3.5 prothrombin time (patient) 16.2 SECS s 11.1-13.4 prothrombin time (patient) 18.9 SECS s 11.1-13.4 international normalized ratio (INR) 2.4 1.0-3.5 Encounters Code Encounter Date Provider Facility CPT-22763 Level 3 Est. Patient 14:21:06 CDT Mitch luis [facility] CPT-90521 Level 3 Est. Patient 14:52:06 [facility] Level 3 Est. Patient 09:34:30 [employer] Mitch luis [facility] CPT-11087 Level 3 Est. Patient 09:37:15 CDT Mitch luis [facility] CPT-98630 Level 3 Est. Patient 17:01:00 [employer] Mitch luis [facility] CPT-95928 Level 3 Est. Patient 13:53:19 [employer] Mitch luis [facility] CPT-75096 Level 3 Est. Patient 19:19:37 [employer] Mitch luis [facility] CPT-10902 Level 3 Est. Patient 13:25:53 [employer] Tavo toure MD [facility] CPT-06303 Level 3 Est. Patient 18:17:28 CDT Mitch luis [facility] CPT-81472 Level 3 Est. Patient 15:22:57 CDT Mitch luis [facility] CPT-70732 Level 3 Est. Patient 18:21:50 CDT Mitch luis [facility] CPT-67886 Level 3 Est. Patient 18:20:38 CDT Mitch luis [facility] CPT-71545 Level 3 Est. Patient 15:37:55 CDT Mitch luis [facility] CPT-80947 Level 2 Est. Patient 15:54:44 CDT Carmine benton MD [facility] CPT-80012 Level 3 Est. Patient 21:46:01 [employer] Mitch luis [facility] CPT-67694 Level 3 Est. Patient 22:15:50 CDT Mitch luis [facility] CPT-75318 Level 3 Est. Patient 10:48:15 CDT Mitch luis [facility] CPT-74744 Level 3 Est. Patient 23:20:57 CDT Tavo toure MD [facility] CPT-33481 Level 3 Est. Patient 16:26:13 CDT Mitch luis [facility] Procedures Code Procedure Name Date Entry Date Standard Desc ription CPT-36210 Hemoccult IFOBT - LAB USE ONLY 10:27:22 CDT CPT-45916 Venipuncture Draw Fee 08:27:08 CDT CPT-18105 Liver Profile - LAB USE ONLY 08:27:07 CDT 2 CPT-23049 Microalbumin - LAB USE ONLY 08:27:07 CDT 20 25/05/09 CPT-79050 PT/INR - LAB USE ONLY 08:27:07 CDT CPT-77843 HGBA1C - LAB USE ONLY 08:27:07 CDT CPT-47456 CBC - LAB USE ONLY 08:27:07 CDT CPT-24061 Venipuncture Draw Fee 11:09:14 CDT CPT-04650 Venipuncture Draw Fee 08:32:21 [employer] CPT-39958 Venipuncture Draw Fee 09:38:56 [employer] CPT-00443 No Charge Offi Visit 21:36:07 CDT 1 CPT-38149 Venipuncture Draw Fee 10:13:28 [employer] CPT-33263 Venipuncture Draw Fee 08:31:11 CDT CPT-56391 Aspir/Inject Med Joint 18:17:28 CDT CPT-91932 Venipuncture Draw Fee 10:13:30 CDT CPT-90634 Venipuncture Draw Fee 08:31:43 [employer] CPT-JTINJ Joint Injection 18:34:50 CDT CPT-44009 Knee 3V 12:25:09 CDT CPT-11690 Venipuncture Draw Fee 12:15:57 CDT CPT-060 Medical Surveillance Exam 21:31:43 CDT 2011 CPT-22453 Venipuncture Draw Fee 08:32:05 [employer] CPT-OV Office Visit 18:19:06 CDT
--- OUTSIDE RECORDS SUMMARY | 2020-01-18 12:22 | XMS REPORT | Clinical Summary ---
Author Author Admin, Mitch Leon Organization [facility] Address Unknown Phone Unavailable Allergies, Adverse Reactions, [...] Coronary atherosclerosis of unspecified type of vessel, [place] or graft EDEMA 782.3 Resolved Mitch Urbina [...] fatigue Cough, chronic 786.2 Resolved Mitch Arnol Urbian DO Cough Sebaceous cyst, infected 706.2 Resolved [...] tab to equal 7mg daily WARFARIN SODIUM 99904843014 Active Mitch Urbina DO Active COLCRYS 0.6 MG TABS 1 tab qid prn gout COLCHICINE 70221252793 Active Kathie Juan RPT,RMA Active INVOKANA 100 MG ORAL TABS 1 tablet orally daily CANAGLIFLOZIN 01408816012 Active Mitch Urbina DO Active MINOXIDIL 2.5 MG TABS 1 tablet daily for high blood pressure 10/23 MINOXIDIL 61413163231 Active Domi Rivera MA Active AMLODIPINE BESYLATE 5 MG TABS 1 tablet by mouth daily AMLODIPINE BESYLATE 71665914080 Active Mitch Urbina DO Active MECLIZINE HCL 25 MG TAB 1 po tid 3 days, then 1/2 tab tid 3 days MECLIZINE HCL 79469922353 No Longer Active Corey SEGURA Active ALLOPURINOL 300 MG TABS Take 1 tablet by mouth daily 2 ALLOPURINOL 00011595679 No Longer Active Corey SEGURA Activ e CLONIDINE HCL 0.1 MG TABS 1 po bid 7 days, then 1/2 tab po b id 7 days CLONIDINE HCL 14756870977 No Longer Active Corey SEGURA Active COUMADIN 5 MG TABS 1 tab PO daily WARFARIN SODIUM 04765370523 Active Mitch Urbina DO Active COUMADIN 4 MG TABS 1 tablet daily WARFARIN SODI UM 86422216174 No Longer Active Corey SEGURA Active POLYTRIM 78731-2.1 UNIT/ML-% SOLN 1 drop in affected e ye every 3 hours while awake x 7 days POLYMYXIN B-TRIMETHOPRIM 68025136598 N o Longer Active Corey SEGURA Active LOSARTAN POTASSIUM-HCTZ 100-12.5 MG TABS 1 by mouth da rocky for high blood pressure LOSARTAN POTASSIUM-HCTZ 49343150064 Active Stephy Urbina DO Active LISINOPRIL-HYDROCHLOROTHIAZIDE 20-12.5 MG TABS 1 tab by mouth da rocky LISINOPRIL-HYDROCHLOROTHIAZIDE 89610040021 No Longer Active Mitch luis DO Active LISINOPRIL 20 MG TABS 1 tab po at HS LISINOPRIL 22902827888 No Longer Active Mitch Urbina DO Active COUMADIN 5 MG TABS 1 by mouth every other day WARFARIN SODIUM 17869557063 No Longer Active Mitch Urbina DO Active COUMADIN 6 MG TABS 1 by mouth every other day WARFARIN SODIUM 43414395248 No Longer Active Mitch W [place] DO Active SIMVASTATIN 40 MG TABS 1 tab daily at bedtime S IMVASTATIN 98924985249 Active Mitch Urbina DO Active SIMVASTATIN 20 MG TABS 1 tab daily at bedtime S IMVASTATIN 55718522976 No Longer Active Mitch Urbina DO Active LOVENOX 100 MG/ML SC SOLN One injection twice a day 09/15/15 ENOXAPARIN SODIUM 80766205413 No Longer Active Carmine Navarrete ctive JANUVIA 50 MG TABS Take one by mouth daily DIEGO GLIPTIN PHOSPHATE 26653147562 Active Mitch Urbina DO Active JANUVIA 100 MG TABS 1/2 by mouth every day DIEGO GLIPTIN PHOSPHATE 29572181359 No Longer Active Bijal Segal RN Active METFORMIN HCL 500 MG TABS 2 by mouth twice daily METFORMIN HCL 63579229913 Active Mitch Urbina DO Active GLIMEPIRIDE 4 MG TABS 1 tab po bid GLIMEPIRIDE 682183 00464 Active Mitch Urbina DO Active COLCRYS 0.6 MG TABS 1 po q 6 hours prn gout pain 03/02 COLCHICINE 65422876998 No Longer Active Camila Reese Active LISINOPRIL 5 MG TABS 1 by mouth every day LISIN OPRIL 64216952400 No Longer Active Nguyen Perez Active KLOR-CON 20 MEQ PACK Take one by mouth daily 8 POTASSIUM CHLORIDE 86337940902 No Longer Active Nguyen Perez Active FUROSEMIDE 40 MG TABS 1 by mouth daily FUROSEMI DE 33569658998 No Longer Active Nguyenmolly Perez Active PROVIGIL 200 MG TABS 1/2 tab po q day MODAFINIL 63116 059225 Active Mitch Urbina DO Active PROVIGIL 100 MG TABS Take one by mouth daily MO DAFINIL 02709958486 No Longer Active Mitch Urbina DO Active BACTRIM DS 800-160 MG TAB 1 tab by mouth twice daily 2 TRIMETHOPRIM-SULFAMETHOXAZOLE 83743326629 No Longer Active Renan Hays MD Active FAMOTIDINE 20 MG TABS by mouth twice a day FAMOTI DINE 11178177147 Active Mitch Urbina DO Active ADULT ASPIRIN LOW STRENGTH 81 MG TBDP 1 by mouth every daily ASPIRIN 23018772730 Active Mitch Urbina DO Active METOPROLOL TARTRATE 50 MG TABS 1 by mouth twice daily METOPROLOL TARTRATE 33590682901 Active Mitch Urbina DO Active BACTRIM DS 800-160 MG TAB 1 tab by mouth twice daily 2 BACTRIM DS 800-160 MG TAB 071573 TRIMETHOPRIM-SULFAMETHOXAZOLE Inac tive PROVIGIL 100 MG TABS Take one by mouth daily 4 PROVIGIL 100 MG TABS 994498 MODAFINIL Inactive FUROSEMIDE 40 MG TABS 1 by mouth daily FU ROSEMIDE 40 MG TABS 729729 FUROSEMIDE Inactive KLOR-CON 20 MEQ PACK Take one by mouth daily 8 KLOR-CON 20 MEQ PACK 337628 POTASSIUM CHLORIDE Inactive LISINOPRIL 5 MG TABS 1 by mouth every day LISINOPRIL 5 MG TABS 967273 LISINOPRIL Inactive COLCRYS 0.6 MG TABS 1 po q 6 hours prn gout pain 03/02 COLCRYS 0.6 MG TABS 741442 COLCHICINE Inactive JANUVIA 100 MG TABS 1/2 by mouth every day JANUVI A 100 MG TABS SITAGLIPTIN PHOSPHATE Inactive SIMVASTATIN 20 MG TABS 1 tab daily at bedtime SIMVASTATIN 20 MG TABS 725089 SIMVASTATIN Inactive COUMADIN 6 MG TABS 1 by mouth every other day COUMADIN 6 MG TABS 653482 WARFARIN SODIUM Inactive COUMADIN 5 MG TABS 1 by mouth every other day COUMADIN 5 MG TABS 669690 WARFARIN SODIUM Inactive LISINOPRIL 20 MG TABS 1 tab po at HS [place]OKI NOPRIL 20 MG TABS 702161 LISINOPRIL Inactive LISINOPRIL-HYDROCHLOROTHIAZIDE 20-12.5 MG TABS 1 tab by mouth da rocky LISINOPRIL-HYDROCHLOROTHIAZIDE 20-12.5 MG TABS 799270 LISINOPRIL-HYDROCHLOROTHIAZIDE Inactive POLYTRIM 41650-2.1 UNIT/ML-% SOLN 1 drop in affected e ye every 3 hours while awake x 7 days POLYTRIM 16130-2.1 UNIT/ML-% SOLN 69861 7 POLYMYXIN B-TRIMETHOPRIM Inactive COUMADIN 4 MG TABS 1 tablet daily COUMADIN 4 MG TABS 921379 WARFARIN SODIUM Inactive CLONIDINE HCL 0.1 MG TABS 1 po bid 7 days, then 1/2 tab po b id 7 days CLONIDINE HCL 0.1 MG TABS 930614 CLONIDINE HCL I nactive ALLOPURINOL 300 MG TABS Take 1 tablet by mouth daily 2 ALLOPURINOL 300 MG TABS 669895 ALLOPURINOL Inactive MECLIZINE HCL 25 MG TAB 1 po tid 3 days, then 1/2 tab tid 3 days MECLIZINE HCL 25 MG TAB 839768 MECLIZINE HCL Inactive LOVENOX 100 MG/ML SC SOLN One injection twice a day 09/15/15 LOVENOX 100 MG/ML SC SOLN 185250 ENOXAPARIN SODIUM Inactive Vital Signs Date Name [...] Range Description Chart Maintenance: hemoccult added to [facility] - Chemistry occult blood, stool (E&M) Positive Lab Report: CBC - Hematology hematocrit, blood 37.3 % 41.0-53.0 mean corpuscular volume, RBC 82 fL 80-97 mean corpuscular hemoglobin, RBC 26.6 pg 27. 0-31.2 mean corpuscular hemoglobin concentration, RBC 32.6 G/DL % 31.8-35.4 red blood cell distribution width 18.0 % 11 .6-14.8 platelet count 276 10^3/MM^3 10*3/mm3 697-614 3357/01/14 hemoglobin, blood 12.2 g/dL 13.5-17.5 erythrocyte (RBC) count 4.57 10^6/MM^3 10*6/mm3 4.69-6.1 3 leukocyte count, blood 7.1 10^3/MM^3 10*3/mm3 4.6-10.2 Lab Report: Comp. Metabolic Panel - Chem istry urea nitrogen, blood 25 mg/dL 7-18 sodium, serum 136 mmol/L 390-491 6765/01/14 creatinine, serum 1.11 mg/dL 0.55-1.30 alanine aminotransferase (SGPT), serum 37 U/L -78 aspartate aminotransferase (SGOT), serum 26 U/L 15-37 calcium, serum 9.7 mg/dL 8.5-10.1 bilirubin, serum, total 0.70 mg/dL 0.00-1.00 carbon dioxide, venous blood 25.4 mmol/L 21.0-32 .0 potassium, serum 4.2 mmol/L 3.5-5.2 chloride, serum 100 mmol/L 98-107 blood glucose 241 mg/dL 65-110 Lab Report: HGBA1C - Chemistry hemoglobin A1C, [...] Chemistry triglyceride, serum, fasting 187 mg/dL 30-200 alanine aminotransferase (SGPT), serum 29 U/L -78 bilirubin, serum, total 0.60 mg/dL 0.00-1.00 aspartate aminotransferase (SGOT), serum 24 U/L 15-37 cholesterol, serum 136 mg/dL 443-597 0268/08/09 HDL cholesterol, serum 39 mg/dL 32-96 LDL cholesterol, serum 60 mg/dL 0-130 albumin/creatinine ratio, urine < 30 mg/g mg/g{creat} [...] - Coagulati on international normalized ratio (INR) 2.4 1.0-3.5 prothrombin time (patient) 18.9 SECS s 11.1-13.4 prothrombin time (patient) 16.9 [...] 1.0-3.5 Encounters Code Encounter Date Provider Facility CPT-13698 Level 3 Est. Patient 14:21:06 CDT Mitch luis [facility] CPT-14327 Level 3 Est. Patient 14:52:06 [facility] 3 Est. Patient 09:34:30 PHARMACEUTICAL WORKER Mitch luis [facility] CPT-97875 Level 3 Est. Patient 09:37:15 CDT Mitch luis [facility] CPT-58530 Level 3 Est. Patient 17:01:00 PHARMACEUTICAL WORKER Mitch luis [facility] CPT-80943 Level 3 Est. Patient 13:53:19 PHARMACEUTICAL WORKER Mitch luis [facility] CPT-02950 Level 3 Est. Patient 19:19:37 PHARMACEUTICAL WORKER Mitch luis [facility] CPT-84071 Level 3 Est. Patient 13:25:53 PHARMACEUTICAL WORKER Tavo toure MD [facility] CPT-50495 Level 3 Est. Patient 18:17:28 CDT Mitch luis [facility] CPT-54951 Level 3 Est. Patient 15:22:57 CDT Mitch luis [facility] CPT-18022 Level 3 Est. Patient 18:21:50 CDT Mitch luis [facility] CPT-35324 Level 3 Est. Patient 18:20:38 CDT Mitch luis [facility] CPT-88287 Level 3 Est. Patient 15:37:55 CDT Mitch luis [facility] CPT-35914 Level 2 Est. Patient 15:54:44 CDT Carmine benton MD [facility] CPT-48196 Level 3 Est. Patient 21:46:01 PHARMACEUTICAL WORKER Mitch luis [facility] CPT-41793 Level 3 Est. Patient 22:15:50 CDT Mitch luis [facility] CPT-00090 Level 3 Est. Patient 10:48:15 CDT Mitch luis [facility] CPT-63261 Level 3 Est. Patient 23:20:57 CDT Tavo toure MD [facility] CPT-48548 Level 3 Est. Patient 16:26:13 CDT Mitch luis [facility] Procedures Code Procedure Name Date Entry Date Standard Desc ription CPT-02312 Hemoccult IFOBT - LAB USE ONLY 10:27:22 CDT CPT-36363 Venipuncture Draw Fee 08:27:08 CDT CPT-49530 Liver Profile - LAB USE ONLY 08:27:07 CDT 2 CPT-97565 Microalbumin - LAB USE ONLY 08:27:07 CDT 20 25/05/09 CPT-33867 PT/INR - LAB USE ONLY 08:27:07 CDT CPT-56345 HGBA1C - LAB USE ONLY 08:27:07 CDT CPT-03792 CBC - LAB USE ONLY 08:27:07 CDT CPT-90993 Venipuncture Draw Fee 11:09:14 CDT CPT-72880 Venipuncture Draw Fee 08:32:21 PHARMACEUTICAL WORKER CPT-34781 Venipuncture Draw Fee 09:38:56 PHARMACEUTICAL WORKER CPT-18560 No Charge Offi Visit 21:36:07 CDT 1 CPT-61143 Venipuncture Draw Fee 10:13:28 PHARMACEUTICAL WORKER CPT-87262 Venipuncture Draw Fee 08:31:11 CDT CPT-47354 Aspir/Inject Med Joint 18:17:28 CDT CPT-27970 Venipuncture Draw Fee 10:13:30 CDT CPT-97782 Venipuncture Draw Fee 08:31:43 PHARMACEUTICAL WORKER CPT-JTINJ Joint Injection 18:34:50 CDT CPT-16923 Knee 3V 12:25:09 CDT CPT-71922 Venipuncture Draw Fee 12:15:57 CDT CPT-060 Medical Surveillance Exam 21:31:43 CDT 2011 CPT-62223 Venipuncture Draw Fee 08:32:05 PHARMACEUTICAL WORKER CPT-OV Office Visit 18:19:06 CDT
--- OUTSIDE RECORDS SUMMARY | 2020-01-18 12:23 | XMS REPORT | Clinical Summary ---
Author Author Admin, Mitch Leon Organization [facility] Address Unknown Phone Unavailable Allergies, Adverse [...] Coronary atherosclerosis of unspecified type of vessel, [place] or graft EDEMA 782.3 Active Mitch Urbina [...] 1 tablet by mouth daily AMLODIPINE BESYLATE 12064921946 Active Mitch Urbina DO Active MECLIZINE HCL 25 MG TAB 1 po tid 3 days, then 1/2 tab tid 3 days MECLIZINE HCL 80400382122 No Longer Active Corey SEGURA Active ALLOPURINOL 300 MG TABS Take 1 tablet by mouth daily 2 ALLOPURINOL 49950320794 No Longer Active Corey SEGURA Activ e CLONIDINE HCL 0.1 MG TABS 1 po bid 7 days, then 1/2 tab po b id 7 days CLONIDINE HCL 26168142015 No Longer Active Corey SEGURA Active COUMADIN 5 MG TABS 1 tab PO daily WARFARIN SODIUM 08245289769 Active Mitch Urbina DO Active COUMADIN 4 MG TABS 1 tablet daily WARFARIN SODI UM 07675817781 No Longer Active Corey SEGURA Active POLYTRIM 36860-2.1 UNIT/ML-% SOLN 1 drop in affected e ye every 3 hours while awake x 7 days POLYMYXIN B-TRIMETHOPRIM 48423957308 N o Longer Active Corey SEGURA Active LOSARTAN POTASSIUM-HCTZ 100-12.5 MG TABS 1 by mouth [place] for high blood pressure LOSARTAN POTASSIUM-HCTZ 14225431541 Active Stephy Urbina DO Active LISINOPRIL-HYDROCHLOROTHIAZIDE 20-12.5 MG TABS 1 tab by mouth da rocky LISINOPRIL-HYDROCHLOROTHIAZIDE 66028457372 No Longer Active Mitch luis DO Active LISINOPRIL 20 MG TABS 1 tab po at HS LISINOPRIL 47701616850 No Longer Active Mitch Urbina DO Active COUMADIN 5 MG TABS 1 by mouth every other day WARFARIN SODIUM 33332716613 No Longer Active Mitch Urbina DO Active COUMADIN 6 MG TABS 1 by mouth every other day WARFARIN SODIUM 17561692980 No Longer Active Mitch Urbina DO Active COLCRYS 0.6 MG TABS 1 tab qid prn gout COLCHICINE 42030548525 Active Mitch Urbina DO Active SIMVASTATIN 40 MG TABS 1 tab daily at bedtime S IMVASTATIN 74452535950 Active Mitch Urbina DO Active SIMVASTATIN 20 MG TABS 1 tab daily at bedtime S IMVASTATIN 43248019140 No Longer Active Mitch Urbina DO Active LOVENOX 100 MG/ML SC SOLN One injection twice a day 09/15/15 ENOXAPARIN SODIUM 98357978242 No Longer Active Carmine Navarrete ctive JANUVIA 50 MG TABS Take one by mouth daily DIEGO GLIPTIN PHOSPHATE 05201735147 Active Mitch Urbina DO Active JANUVIA 100 MG TABS 1/2 by mouth every day DIEGO GLIPTIN PHOSPHATE 44769240471 No Longer Active Bijal Philipp RN Active METFORMIN HCL 500 MG TABS 2 by mouth twice daily METFORMIN HCL 03381575417 Active Mitch Urbina DO Active GLIMEPIRIDE 4 MG TABS 1 tab po bid GLIMEPIRIDE 453491 30302 Active Mitch Urbina DO Active COLCRYS 0.6 MG TABS 1 po q 6 hours prn gout pain 03/02 COLCHICINE 55301276046 No Longer Active Camila Reese Active LISINOPRIL 5 MG TABS 1 by mouth every day LISIN OPRIL 82898958042 No Longer Active Nguyen Perez Active KLOR-CON 20 MEQ PACK Take one by mouth daily 8 POTASSIUM CHLORIDE 19338830537 No Longer Active Nguyen Perez Active FUROSEMIDE 40 MG TABS 1 by mouth daily FUROSEMI DE 87200702459 No Longer Active Nguyen Perez Active PROVIGIL 200 MG TABS 1/2 tab po q day MODAFINIL 96030 289558 Active Mitch Urbina DO Active PROVIGIL 100 MG TABS Take one by mouth daily MO DAFINIL 98918242479 No Longer Active Mitch Urbina DO Active BACTRIM DS 800-160 MG TAB 1 tab by mouth twice daily 2 TRIMETHOPRIM-SULFAMETHOXAZOLE 84659495291 No Longer Active Renan Hays MD Active FAMOTIDINE 20 MG TABS by mouth twice a day FAMOTI DINE 90774450914 Active Mitch Urbina DO Active ADULT ASPIRIN LOW STRENGTH 81 MG TBDP 1 by mouth every daily ASPIRIN 60344177169 Active Mitch Urbina DO Active METOPROLOL TARTRATE 50 MG TABS 1 by mouth twice daily METOPROLOL TARTRATE 67931539360 Active Imtch W [place] DO Active BACTRIM DS 800-160 MG TAB 1 tab by mouth twice daily 2 BACTRIM DS 800-160 MG TAB TRIMETHOPRIM-SULFAMETHOXAZOLE Inac tive PROVIGIL 100 MG TABS Take one by mouth daily 4 PROVIGIL 100 MG TABS 428094 MODAFINIL Inactive FUROSEMIDE 40 MG TABS 1 by mouth daily FU ROSEMIDE 40 MG TABS 359763 FUROSEMIDE Inactive KLOR-CON 20 MEQ PACK Take one by mouth daily 8 KLOR-CON 20 MEQ PACK 449288 POTASSIUM CHLORIDE Inactive LISINOPRIL 5 MG TABS 1 by mouth every day LISINOPRIL 5 MG TABS 827979 LISINOPRIL Inactive COLCRYS 0.6 MG TABS 1 po q 6 hours prn gout pain 03/02 COLCRYS 0.6 MG TABS COLCHICINE Inactive JANUVIA 100 MG TABS 1/2 by mouth every day JANUVI A 100 MG TABS SITAGLIPTIN PHOSPHATE Inactive SIMVASTATIN 20 MG TABS 1 tab daily at bedtime SIMVASTATIN 20 MG TABS 738783 SIMVASTATIN Inactive COUMADIN 6 MG TABS 1 by mouth every other day COUMADIN 6 MG TABS 841874 WARFARIN SODIUM Inactive COUMADIN 5 MG TABS 1 by mouth every other day COUMADIN 5 MG TABS 687283 WARFARIN SODIUM Inactive LISINOPRIL 20 MG TABS 1 tab po at HS KOKI NOPRIL 20 MG TABS 492882 LISINOPRIL Inactive LISINOPRIL-HYDROCHLOROTHIAZIDE 20-12.5 MG TABS 1 tab by mouth da rocky LISINOPRIL-HYDROCHLOROTHIAZIDE 20-12.5 MG TABS 019371 LISINOPRIL-HYDROCHLOROTHIAZIDE Inactive POLYTRIM 07700-9.1 UNIT/ML-% SOLN 1 drop in affected e ye every 3 hours while awake x 7 days POLYTRIM 79561-8.1 UNIT/ML-% SOLN 00569 7 POLYMYXIN B-TRIMETHOPRIM Inactive COUMADIN 4 MG TABS 1 tablet daily COUMADIN 4 MG TABS 969832 WARFARIN SODIUM Inactive CLONIDINE HCL 0.1 MG TABS 1 po bid 7 days, then 1/2 tab po b id 7 days CLONIDINE HCL 0.1 MG TABS 941848 CLONIDINE HCL I nactive ALLOPURINOL 300 MG TABS Take 1 tablet by mouth daily 2 ALLOPURINOL 300 MG TABS 566289 ALLOPURINOL Inactive MECLIZINE HCL 25 MG TAB 1 po tid 3 days, then 1/2 tab tid 3 days MECLIZINE HCL 25 MG TAB 558201 MECLIZINE HCL Inactive LOVENOX 100 MG/ML SC SOLN One injection twice a day 09/15/15 LOVENOX 100 MG/ML SC SOLN 382019 ENOXAPARIN SODIUM Inactive Vital Signs Date Name Value Unit Range Description blood pressure, diastolic - 8462-4 74 mm[Hg] BP mane blood pressure, systolic - 8480-6 159 mm[Hg] BP sys pulse rate E&M - 8867-4 71 /min H eart rate temperature E&M 97.6 [degF] Body temp erature weight E&M - 3141-9 235 [lb_av] Weigh t Measured blood pressure, diastolic - 8462-4 70 mm[Hg] BP mane blood pressure, systolic - 8480-6 169 mm[Hg] BP sys height E&M - 8302-2 70 [in_us] Bdy h eight pulse rate E&M - 8867-4 72 /min H eart rate temperature E&M 97.7 [degF] Body temp erature weight E&M - 3141-9 236.13 [lb_av] Weigh t Measured Diagnostic Results Date Name Value Unit Range Description Append: Anticoagulation Management - Coa gulation international normalized ratio (INR) coagulation managed by Mitch Urbina DO international normalized ratio (INR) coagulation managed by Mitch Urbina DO Lab Report: CBC, Comp. Metabolic Panel, HGBA1C, MICROALBUMIN, Uric Acid - Chemistry albumin/creatinine ratio, urine < 30 mg/g mg/g{creat} 0-2 9 uric acid, serum 10.3 mg/dL 2.6-7.2 sodium, serum 136 mmol/L 283-941 2304/07/25 potassium, serum 4.6 mmol/L 3.5-5.2 chloride, serum [...] Panel - Chemistry sodium, serum 137 mmol/L 051-695 8576/11/14 potassium, serum 4.4 mmol/L 3.5-5.2 chloride, serum [...] 8.0 % 4.3-6.0 cholesterol, serum 130 mg/dL 872-455 8408/11/14 triglyceride, serum, fasting 288 mg/dL 30-200 HDL cholesterol, serum 33 mg/dL 32-96 LDL cholesterol, serum 39 mg/dL 0-130 Lab Report: Comp. Metabolic Panel, HGBA1 C, Lipid Panel, Prothrombin Time - Chemistry sodium, serum 136 mmol/L 774-229 7814/12/02 potassium, serum 4.4 mmol/L 3.5-5.2 chloride, serum [...] 7.6 % 4.3-6.0 cholesterol, serum 117 mg/dL 808-217 0699/12/02 triglyceride, serum, fasting 226 mg/dL 30-200 HDL cholesterol, serum 30 mg/dL 32-96 LDL cholesterol, serum 42 mg/dL 0-130 Lab Report: Comp. Metabolic Panel, HGBA1 C, Lipid Panel, Prothrombin Time - Coagulation prothrombin time (patient) 16.3 SECS s 11.1-13.4 international normalized ratio (INR) 1.7 1.0-3.5 Lab Report: Prothrombin Time - Coagulati on prothrombin time (patient) 18.6 SECS s 11.1-13.4 international normalized ratio (INR) 2.2 1.0-3.5 prothrombin time (patient) 18.4 SECS s 11.1-13.4 international normalized ratio (INR) 2.2 1.0-3.5 prothrombin time (patient) 16.0 SECS s 11.1-13.4 international normalized ratio (INR) 1.7 1.0-3.5 prothrombin time (patient) 18.4 SECS s 11.1-13.4 international normalized ratio (INR) 2.2 1.0-3.5 prothrombin time (patient) 16.8 SECS s 11.1-13.4 international normalized ratio (INR) 1.9 1.0-3.5 prothrombin time (patient) 19.9 SECS s 11.1-13.4 international normalized ratio (INR) 2.6 1.0-3.5 Encounters Code Encounter Date Provider Facility CPT-94589 Level 3 Est. Patient 17:01:00 SENIOR CLIENT ADVISOR Mitch W L janelle [facility] CPT-63683 Level 3 Est. Patient 13:53:19 SENIOR CLIENT ADVISOR Mitch luis [facility] CPT-73391 Level 3 Est. Patient 19:19:37 SENIOR CLIENT ADVISOR Mitch Ambrose L janelle [facility] CPT-31357 Level 3 Est. Patient 13:25:53 SENIOR CLIENT ADVISOR Tavo toure MD [facility] CPT-97142 Level 3 Est. Patient 18:17:28 CDT Mitch Ambrose L janelle [facility] CPT-57409 Level 3 Est. Patient 15:22:57 CDT Mitch luis [facility] CPT-46287 Level 3 Est. Patient 18:21:50 CDT Mitch W L janelle [facility] CPT-19865 Level 3 Est. Patient 18:20:38 CDT Mitch Ambrose L janelle [facility] CPT-94629 Level 3 Est. Patient 15:37:55 CDT Mitch W L ee [facility] CPT-26484 Level 2 Est. Patient 15:54:44 CDT Carmine benton MD [facility]-62251 Level 3 Est. Patient 21:46:01 SENIOR CLIENT ADVISOR Mitch luis [facility] CPT-31898 Level 3 Est. Patient 22:15:50 CDT Mitch luis [facility] CPT-52639 Level 3 Est. Patient 10:48:15 CDT Mitch luis [facility] CPT-65724 Level 3 Est. Patient 23:20:57 CDT Tavo toure MD [facility] CPT-00919 Level 3 Est. Patient 16:26:13 CDT Mitch luis [facility] Procedures Code Procedure Name Date Entry Date Standard Desc ription CPT-90786 Venipuncture Draw Fee 10:13:28 SENIOR CLIENT ADVISOR CPT-74377 Venipuncture Draw Fee 08:31:11 CDT CPT-73229 Aspir/Inject Med Joint 18:17:28 CDT CPT-44475 Venipuncture Draw Fee 10:13:30 CDT CPT-04403 Venipuncture Draw Fee 08:31:43 SENIOR CLIENT ADVISOR CPT-JTINJ Joint Injection 18:34:50 CDT CPT-78705 Knee 3V 12:25:09 CDT CPT-35763 Venipuncture Draw Fee 12:15:57 CDT CPT-060 Medical Surveillance Exam 21:31:43 CDT 2011 CPT-39943 Venipuncture Draw Fee 08:32:05 SENIOR CLIENT ADVISOR CPT-OV Office Visit 18:19:06 CDT
--- OUTSIDE RECORDS SUMMARY | 2020-01-18 12:23 | XMS REPORT | Clinical Summary ---
Author Author Admin, Mitch Leon Organization [facility] Address Unknown Phone Unavailable Allergies, Adverse [...] Coronary atherosclerosis of unspecified type of vessel, t[place] or graft EDEMA 782.3 Resolved iMtch Urbina DO Ed antonia DEGENERATIVE JOINT DISEASE, [...] DO Cough Sebaceous cyst, infected 706.2 Resolved Micth W Carlitos DO Sebaceous cyst Cellulitis 682.9 [...] Le e DO BRUISE ICD-924.9 Inactive Mitch Arnol Urbina DO OLECRANON BURSITIS, RIGHT ICD-726.33 Inactive [...] by mouth twice a day 2017 FAMOTIDINE 66654975744 No Longer Active Mitch Urbina DO Active COLCRYS 0.6 MG ORAL TABLET 1 tab qid prn gout C OLCHICINE 79433481082 No Longer Active Mitch Urbina DO Active GLIMEPIRIDE 2 MG ORAL TABLET 1 po BID GLIMEPIRID E 49785923034 Active Renee Oconnor MICROFILM CAMERA OPERATOR Active KEFLEX 500 MG ORAL CAPSULE 1 po qid CEPHALEXI N 18451202810 No Longer Active Mitch Urbina DO Active LOSARTAN POTASSIUM 100 MG ORAL TABLET 1 pill by mouth daily, for blood pressure LOSARTAN POTASSIUM 75032115262 Active Ana Wallace Active AMLODIPINE BESYLATE 5 MG ORAL TABLET 1 tablet by mouth daily 201 01/20/04 AMLODIPINE BESYLATE 97040535775 No Longer Active Joe fulton APRN Active MITIGARE 0.6 MG ORAL CAPSULE 2 capsules at onset of go ut pain, then take one capsule at 1 hour if symptoms persist. COLCHICINE 59 916220578 Active Mitch Urbina DO Active COUMADIN 1 MG ORAL TABLET 2 tabs orally daily with the 5mg tab to equal 7mg daily WARFARIN SODIUM 76728267503 Active Ana Wallace Active INVOKANA 100 MG ORAL TABLET 1 tablet orally daily CANAGLIFLOZIN 73837835626 Active Mitch Urbina DO Active MINOXIDIL 2.5 MG ORAL TABLET 1 tablet daily for high blood press ure MINOXIDIL 89899246790 Active Mitch Urbina DO Active MECLIZINE HCL 25 MG ORAL TABLET 1 po tid 3 days, then 1/2 ta b tid 3 days MECLIZINE HCL 26826200095 No Longer Active Corey SEGURA Active ALLOPURINOL 300 MG ORAL TABLET Take 1 tablet by mouth daily 2012 ALLOPURINOL 74468067457 No Longer Active Corey SEGURA Active CLONIDINE HCL 0.1 MG ORAL TABLET 1 po bid 7 days, then 1/2 t ab po bid 7 days CLONIDINE HCL 24450776034 No Longer Active Corey SEGURA Active COUMADIN 5 MG ORAL TABLET 1 tab PO daily WARFAR IN SODIUM 59264316310 Active Mitch Urbina DO Active COUMADIN 4 MG ORAL TABLET 1 tablet daily WARFAR IN SODIUM 40961062034 No Longer Active Corey SEGURA Active POLYTRIM 84996-8.1 UNIT/ML-% OPHTHALMIC SOLUTION 1 rui p in affected eye every 3 hours while awake x 7 days POLYMYXIN B-TRIMETHOP RIM 57588370533 No Longer Active Corey SEGURA Active LOSARTAN POTASSIUM-HCTZ 100-12.5 MG ORAL TABLET 1 by m outh daily for high blood pressure LOSARTAN POTASSIUM-HCTZ 62125654422 No Longer A ctive Mitch Urbina DO Active LISINOPRIL-HYDROCHLOROTHIAZIDE 20-12.5 MG ORAL TABLET 1 tab by m outh daily LISINOPRIL-HYDROCHLOROTHIAZIDE 99813210173 No Longer Active Mitch Urbina DO Active LISINOPRIL 20 MG ORAL TABLET 1 tab po at HS LIS INOPRIL 35528349187 No Longer Active Mitch Urbina DO Active COUMADIN 5 MG ORAL TABLET 1 by mouth every other day 2 WARFARIN SODIUM 29762948302 No Longer Active Mitch Urbina DO Active COUMADIN 6 MG ORAL TABLET 1 by mouth every other day 2 WARFARIN SODIUM 90153784375 No Longer Active Mitch Urbina DO Active SIMVASTATIN 40 MG ORAL TABLET 1 tab daily at bedtime SIMVASTATIN 09099154014 Active Mitch Urbina DO Active SIMVASTATIN 20 MG ORAL TABLET 1 tab daily at bedtime 2 SIMVASTATIN 99756598045 No Longer Active Mitch Urbina DO Active LOVENOX 100 MG/ML SUBCUTANEOUS SOLUTION One injection twice a da y ENOXAPARIN SODIUM 58288569740 No Longer Active Carmine Yusuf MD Active JANUVIA 50 MG ORAL TABLET Take one by mouth daily SITAGLIPTIN PHOSPHATE 85464663615 Active Mitch W Carlitos DO Active JANUVIA 100 MG ORAL TABLET 1/2 by mouth every day 2011 SITAGLIPTIN PHOSPHATE 49943861775 No Longer Active Bijal Segal RN Acti ve METFORMIN HCL 500 MG ORAL TABLET 2 by mouth twice daily METFORMIN HCL 53275673944 Active Mitch Urbina DO Active COLCRYS 0.6 MG ORAL TABLET 1 po q 6 hours prn gout pain COLCHICINE 89638498979 No Longer Active Camila Reese Active LISINOPRIL 5 MG ORAL TABLET 1 by mouth every day 11/17 LISINOPRIL 82890461113 No Longer Active Nguyen Perez Active KLOR-CON 20 MEQ ORAL PACKET Take one by mouth daily 09/10/08 POTASSIUM CHLORIDE 61573971968 No Longer Active Nguyen Perez Active FUROSEMIDE 40 MG ORAL TABLET 1 by mouth daily F UROSEMIDE 09790201646 No Longer Active Nguyen Perez Active PROVIGIL 200 MG ORAL TABLET 1/2 tab po q day MODA FINIL 43558436704 Active Renee Elvin BURNETTN Active PROVIGIL 100 MG ORAL TABLET Take one by mouth daily 08/20/04 MODAFINIL 97565350620 No Longer Active Mitch Urbina DO Active BACTRIM DS 800-160 MG ORAL TABLET 1 tab by mouth twice daily 201 10/19/09 TRIMETHOPRIM-SULFAMETHOXAZOLE 07251768673 No Longer Active Elian Hays MD Active ADULT ASPIRIN LOW STRENGTH 81 MG ORAL TABLET DISINTEGR ATING 1 by mouth every daily ASPIRIN 70009453907 Active Mitch Urbina DO Ac tive METOPROLOL TARTRATE 50 MG ORAL TABLET 1 by mouth twice daily METOPROLOL TARTRATE 11172651880 Active Mitch Urbina DO Active BACTRIM DS 800-160 MG ORAL TABLET 1 tab by mouth twice daily 201 10/19/09 BACTRIM DS 800-160 MG ORAL TABLET 641166 TRIMETHOPRIM-SULFAMETHOXAZOLE Inactive PROVIGIL 100 MG ORAL TABLET Take one by mouth daily 20 08/20/04 PROVIGIL 100 MG ORAL TABLET 763647 MODAFINIL Inactive FUROSEMIDE 40 MG ORAL TABLET 1 by mouth daily FUROSEMIDE 40 MG ORAL TABLET 922985 FUROSEMIDE Inactive KLOR-CON 20 MEQ ORAL PACKET Take one by mouth daily 09/10/08 KLOR- CON 20 MEQ ORAL PACKET 8468766 POTASSIUM CHLORIDE Inactive LISINOPRIL 5 MG ORAL TABLET 1 by mouth every day 11/17 LISINOPRIL 5 MG ORAL TABLET 880221 LISINOPRIL Inactive COLCRYS 0.6 MG ORAL TABLET 1 po q 6 hours prn gout pain COLCRYS 0.6 MG ORAL TABLET 048887 COLCHICINE Inactive JANUVIA 100 MG ORAL TABLET 1/2 by mouth every day 2011 JANUVIA 100 MG ORAL TABLET SITAGLIPTIN PHOSPHATE Inactive SIMVASTATIN 20 MG ORAL TABLET 1 tab daily at bedtime 2 SIMVASTATIN 20 MG ORAL TABLET 329964 SIMVASTATIN Inactive COUMADIN 6 MG ORAL TABLET 1 by mouth every other day COUMADIN 6 MG ORAL TABLET 531735 WARFARIN SODIUM Inactive COUMADIN 5 MG ORAL TABLET 1 by mouth every other day 2 COUMADIN 5 MG ORAL TABLET 653662 WARFARIN SODIUM Inactive LISINOPRIL 20 MG ORAL TABLET 1 tab po at HS LISINOPRIL 20 MG ORAL TABLET 398332 LISINOPRIL Inactive LISINOPRIL-HYDROCHLOROTHIAZIDE 20-12.5 MG ORAL TABLET 1 tab by m outh daily LISINOPRIL-HYDROCHLOROTHIAZIDE 20-12.5 MG ORAL TABLET 612555 LISINOPRIL-HYDROCHLOROTHIAZIDE Inactive POLYTRIM 77824-1.1 UNIT/ML-% OPHTHALMIC SOLUTION 1 rui p in affected eye every 3 hours while awake x 7 days POLYTRIM 1000 0-0.1 UNIT/ML-% OPHTHALMIC SOLUTION 823760 POLYMYXIN B-TRIMETHOPRIM Inactive COUMADIN 4 MG ORAL TABLET 1 tablet daily COUMADIN 4 MG ORAL TABLET 579636 WARFARIN SODIUM Inactive CLONIDINE HCL 0.1 MG ORAL TABLET 1 po bid 7 days, then 1/2 t ab po bid 7 days CLONIDINE HCL 0.1 MG ORAL TABLET 173778 CLONIDIN E HCL Inactive ALLOPURINOL 300 MG ORAL TABLET Take 1 tablet by mouth daily 2012 ALLOPURINOL 300 MG ORAL TABLET 395759 ALLOPURINOL I nactive MECLIZINE HCL 25 MG ORAL TABLET 1 po tid 3 days, then 1/2 ta b tid 3 days MECLIZINE HCL 25 MG ORAL TABLET 749573 MECLIZINE HCL Inactive AMLODIPINE BESYLATE 5 MG ORAL TABLET 1 tablet by mouth daily 201 01/20/04 AMLODIPINE BESYLATE 5 MG ORAL TABLET 668651 AMLODIPINE BESYLATE Inactive KEFLEX 500 MG ORAL CAPSULE 1 po qid K EFLEX 500 MG ORAL CAPSULE 734545 CEPHALEXIN Inactive COLCRYS 0.6 MG ORAL TABLET 1 tab qid prn gout COLCRYS 0.6 MG ORAL TABLET 532957 COLCHICINE Inactive FAMOTIDINE 20 MG ORAL TABLET by mouth twice a day 2017 FAMOTIDINE 20 MG ORAL TABLET 900080 FAMOTIDINE Inactive LOVENOX 100 MG/ML SUBCUTANEOUS SOLUTION One injection twice a da y LOVENOX 100 MG/ML SUBCUTANEOUS SOLUTION 297343 ENOXAPAR IN SODIUM Inactive Vital Signs Date [...] - Chem istry sodium, serum 139 mmol/L 844-079 1850/07/17 potassium, serum 4.2 mmol/L 3.5-5.2 chloride, serum 102 mmol/L 98-107 carbon dioxide, venous blood 28.9 mmol/L 21.0-32 .0 blood glucose 211 mg/dL 65-110 calcium, serum 10.6 mg/dL 8.5-10.1 urea nitrogen, blood 29 mg/dL 7-18 creatinine, serum 1.24 mg/dL 0.60-1.30 sodium, serum 141 mmol/L 499-985 8291/08/07 potassium, serum 4.5 mmol/L 3.5-5.2 chloride, serum [...] ... - Chemistry sodium, serum 144 mmol/L 568-371 4222/06/12 carbon dioxide, venous blood 26.6 mmol/L 21.0-32 [...] HGBA1C - Chemistry cholesterol, serum 136 mg/dL 407-938 0475/12/06 triglyceride, serum, fasting 247 mg/dL 30-200 HDL cholesterol, serum 41 mg/dL 32-60 LDL cholesterol, serum 46 mg/dL 0-130 aspartate aminotransferase (SGOT), serum 22 U/L 15-37 alanine aminotransferase (SGPT), serum 30 U/L 12-78 bilirubin, serum, total 0.80 mg/dL 0.00-1.00 hemoglobin A1C, blood, as % of total hemoglobin 6.4 % 4.3-6.0 Encounters Code Encounter Date Provider Facility CPT-48196 Level 3 Est. Patient 18:25:53 CDT Mitch luis [facility] CPT-90003 Level 3 Est. Patient 19:43:34 CDT Mitch Castellano [facility] CPT-81088 Level 4 Est. Patient 09:30:18 CDT Mitch luis [facility] CPT-11116 Level 3 Est. Patient 15:10:14 CDT Joe kamara [facility] CPT-01126 Level 3 Est. Patient 15:03:46 CDT Joe kamara [facility] CPT-71038 Level 3 Est. Patient 14:21:06 CDT Mitch luis [facility] CPT-64737 Level 3 Est. Patient 14:52:06 CDT [facility] Est[facility] Patient 09:34:30 CENTRAL OFFICE WORKER Mitch Ambrose L janelle [facility]-74062 Level 3 Est. Patient 09:37:15 CDT Mitch W L janelle [facility]-11970 Level 3 Est. Patient 17:01:00 CENTRAL OFFICE WORKER Mitch W L janelle [facility] CPT-41985 Level 3 Est. Patient 13:53:19 CENTRAL OFFICE WORKER Mitch W L janelle [facility] CPT-08301 Level 3 Est. Patient 19:19:37 CENTRAL OFFICE WORKER Mitch W L janelle [facility] CPT-05721 Level 3 Est. Patient 13:25:53 CENTRAL OFFICE WORKER Tavo toure MD [facility]-79784 Level 3 Est. Patient 18:17:28 CDT Mitch Ambrose L janelle [facility] CPT-61633 Level 3 Est. Patient 15:22:57 CDT Mitch W L janelle [facility]-75083 Level 3 Est. Patient 18:21:50 CDT Mitch W L janelle [facility] CPT-07758 Level 3 Est. Patient 18:20:38 CDT Mitch Arnol L janelle [facility]-66236 Level 3 Est. Patient 15:37:55 CDT Mitch W L janelle [facility] CPT-73796 Level 2 Est. Patient 15:54:44 CDT Carmine benton MD [facility]-87553 Level 3 Est. Patient 21:46:01 CENTRAL OFFICE WORKER Mitch W L janelle [facility] CPT-12725 Level 3 Est. Patient 22:15:50 CDT Mitch W L ee [facility] CPT-95614 Level 3 Est. Patient 10:48:15 CDT Mitch luis [facility] CPT-61994 Level 3 Est. Patient 23:20:57 CDT Tavo toure MD [facility] CPT-85047 Level 3 Est. Patient 16:26:13 CDT Mitch luis [facility] Procedures Code Procedure Name Date Entry Date Standard Desc ription CPT-JTINJ Asp/Joint Injection 18:47:02 CDT CPT-68872 Venipuncture Draw Fee 09:26:17 CDT CPT-64039 PT/INR - LAB USE ONLY 13:32:49 CENTRAL OFFICE WORKER CPT-41427 Venipuncture Draw Fee 13:32:49 CENTRAL OFFICE WORKER CPT-50996 PT/INR - LAB USE ONLY 10:34:49 CENTRAL OFFICE WORKER CPT-96850 Venipuncture Draw Fee 10:34:48 CENTRAL OFFICE WORKER CPT-76339 PT/INR - LAB USE ONLY 09:22:03 CENTRAL OFFICE WORKER CPT-29784 Venipuncture Draw Fee 09:22:02 CENTRAL OFFICE WORKER CPT-49184 Hemoccult IFOBT - LAB USE ONLY 10:27:22 CDT CPT-56750 Venipuncture Draw Fee 08:27:08 CDT CPT-42876 Liver Profile - LAB USE ONLY 08:27:07 CDT 2 CPT-41722 Microalbumin - LAB USE ONLY 08:27:07 CDT 20 25/05/09 CPT-24457 PT/INR - LAB USE ONLY 08:27:07 CDT CPT-30709 HGBA1C - LAB USE ONLY 08:27:07 CDT CPT-33894 CBC - LAB USE ONLY 08:27:07 CDT CPT-18987 Venipuncture Draw Fee 11:09:14 CDT CPT-66803 Venipuncture Draw Fee 08:32:21 CENTRAL OFFICE WORKER CPT-51183 Venipuncture Draw Fee 09:38:56 CENTRAL OFFICE WORKER CPT-73091 No Charge Offi Visit 21:36:07 CDT 1 CPT-66711 Venipuncture Draw Fee 10:13:28 CENTRAL OFFICE WORKER CPT-28791 Venipuncture Draw Fee 08:31:11 CDT CPT-77201 Aspir/Inject Med Joint 18:17:28 CDT CPT-60956 Venipuncture Draw Fee 10:13:30 CDT CPT-60258 Venipuncture Draw Fee 08:31:43 CENTRAL OFFICE WORKER CPT-JTINJ Joint Injection 18:34:50 CDT CPT-63730 Knee 3V 12:25:09 CDT CPT-34311 Venipuncture Draw Fee 12:15:57 CDT CPT-060 Medical Surveillance Exam 21:31:43 CDT 2011 CPT-07781 Venipuncture Draw Fee 08:32:05 CENTRAL OFFICE WORKER CPT-OV Office Visit 18:19:06 CDT
--- OUTSIDE RECORDS SUMMARY | 2020-01-18 12:23 | XMS REPORT | Clinical Summary ---
Author Author Admin, Mitch Leon Organization [facility] Address Unknown Phone Unavailable Allergies, Adverse [...] atherosclerosis of unspecified type of vessel, [place] or graft EDEMA 782.3 Active Mitch Urbina [...] 1 tablet by mouth daily AMLODIPINE BESYLATE 46154231042 Active Mitch Urbina DO Active MECLIZINE HCL 25 MG TAB 1 po tid 3 days, then 1/2 tab tid 3 days MECLIZINE HCL 66782033560 No Longer Active Corey SEGURA Active ALLOPURINOL 300 MG TABS Take 1 tablet by mouth daily 2 ALLOPURINOL 04368105389 No Longer Active Corey SEGURA Activ e CLONIDINE HCL 0.1 MG TABS 1 po bid 7 days, then 1/2 tab po b id 7 days CLONIDINE HCL 29201219953 No Longer Active Corey SEGURA Active COUMADIN 5 MG TABS 1 tab PO daily WARFARIN SODIUM 11347890119 Active Mitch Urbina DO Active COUMADIN 4 MG TABS 1 tablet daily WARFARIN SODI UM 15404919002 No Longer Active Corey SEGURA Active POLYTRIM 93779-4.1 UNIT/ML-% SOLN 1 drop in affected e ye every 3 hours while awake x 7 days POLYMYXIN B-TRIMETHOPRIM 69591631636 N o Longer Active Corey SEGURA Active LOSARTAN POTASSIUM-HCTZ 100-12.5 MG TABS 1 by mouth da rocky for high blood pressure LOSARTAN POTASSIUM-HCTZ 76619202459 Active Stephy Urbina DO Active LISINOPRIL-HYDROCHLOROTHIAZIDE 20-12.5 MG TABS 1 tab by mouth da rocky LISINOPRIL-HYDROCHLOROTHIAZIDE 52483624931 No Longer Active Mitch luis DO Active LISINOPRIL 20 MG TABS 1 tab po at HS LISINOPRIL 54341814887 No Longer Active Mitch Urbina DO Active COUMADIN 5 MG TABS 1 by mouth every other day WARFARIN SODIUM 09744964994 No Longer Active Mitch Urbina DO Active COUMADIN 6 MG TABS 1 by mouth every other day WARFARIN SODIUM 78493026688 No Longer Active Mitch Urbina DO Active COLCRYS 0.6 MG TABS 1 tab qid prn gout COLCHICINE 07599588151 Active Corey SEGURA Active SIMVASTATIN 40 MG TABS 1 tab daily at bedtime S IMVASTATIN 05781476092 Active Mitch Urbina DO Active SIMVASTATIN 20 MG TABS 1 tab daily at bedtime S IMVASTATIN 70694048332 No Longer Active Mitch Urbina DO Active LOVENOX 100 MG/ML SC SOLN One injection twice a day 09/15/15 ENOXAPARIN SODIUM 09121818675 No Longer Active Carmine Navarrete ctive JANUVIA 50 MG TABS Take one by mouth daily DIEGO GLIPTIN PHOSPHATE 71902659989 Active Mitch Urbina DO Active JANUVIA 100 MG TABS 1/2 by mouth every day DIEGO GLIPTIN PHOSPHATE 18370195406 No Longer Active Biajl Segal RN Active METFORMIN HCL 500 MG TABS 2 by mouth twice daily METFORMIN HCL 30558215319 Active Corey Arias PA Active GLIMEPIRIDE 4 MG TABS 1 tab po bid GLIMEPIRIDE 095578 10608 Active Mitch Urbina DO Active COLCRYS 0.6 MG TABS 1 po q 6 hours prn gout pain 03/02 COLCHICINE 98467622836 No Longer Active Camilamargarita Reese Active LISINOPRIL 5 MG TABS 1 by mouth every day LISIN OPRIL 24167089787 No Longer Active Nguyenmolly Perez Active KLOR-CON 20 MEQ PACK Take one by mouth daily 8 POTASSIUM CHLORIDE 48080127001 No Longer Active Nguyenmolly Perez Active FUROSEMIDE 40 MG TABS 1 by mouth daily FUROSEMI DE 53761643318 No Longer Active Nguyen Perez Active PROVIGIL 200 MG TABS 1/2 tab po q day MODAFINIL 80600 691450 Active Mitch Urbina DO Active PROVIGIL 100 MG TABS Take one by mouth daily MO DAFINIL 81924180316 No Longer Active Mitch Urbina DO Active BACTRIM DS 800-160 MG TAB 1 tab by mouth twice daily TRIMETHOPRIM-SULFAMETHOXAZOLE 75373276684 No Longer Active Renan Hays MD Active FAMOTIDINE 20 MG TABS by mouth twice a day FAMOTI DINE 84944954077 Active Mitch Urbina DO Active ADULT ASPIRIN LOW STRENGTH 81 MG TBDP 1 by mouth every daily ASPIRIN 55174110474 Active Mitch Urbina DO Active METOPROLOL TARTRATE 50 MG TABS 1 by mouth twice daily METOPROLOL TARTRATE 45335861857 Active Curly Coker MD Active BACTRIM DS 800-160 MG TAB 1 tab by mouth twice daily 2 BACTRIM DS 800-160 MG TAB TRIMETHOPRIM-SULFAMETHOXAZOLE Inac tive PROVIGIL 100 MG TABS Take one by mouth daily 4 PROVIGIL 100 MG TABS 049288 MODAFINIL Inactive FUROSEMIDE 40 MG TABS 1 by mouth daily FU ROSEMIDE 40 MG TABS 054750 FUROSEMIDE Inactive KLOR-CON 20 MEQ PACK Take one by mouth daily 8 KLOR-CON 20 MEQ PACK 116771 POTASSIUM CHLORIDE Inactive LISINOPRIL 5 MG TABS 1 by mouth every day LISINOPRIL 5 MG TABS 431367 LISINOPRIL Inactive COLCRYS 0.6 MG TABS 1 po q 6 hours prn gout pain 03/02 COLCRYS 0.6 MG TABS 012153 COLCHICINE Inactive JANUVIA 100 MG TABS 1/2 by mouth every day JANUVI A 100 MG TABS SITAGLIPTIN PHOSPHATE Inactive SIMVASTATIN 20 MG TABS 1 tab daily at bedtime SIMVASTATIN 20 MG TABS 300942 SIMVASTATIN Inactive COUMADIN 6 MG TABS 1 by mouth every other day COUMADIN 6 MG TABS 485500 WARFARIN SODIUM Inactive COUMADIN 5 MG TABS 1 by mouth every other day COUMADIN 5 MG TABS 851322 WARFARIN SODIUM Inactive LISINOPRIL 20 MG TABS 1 tab po at HS KOKI NOPRIL 20 MG TABS 621553 LISINOPRIL Inactive LISINOPRIL-HYDROCHLOROTHIAZIDE 20-12.5 MG TABS 1 tab by mouth da rocky LISINOPRIL-HYDROCHLOROTHIAZIDE 20-12.5 MG TABS 190039 LISINOPRIL-HYDROCHLOROTHIAZIDE Inactive POLYTRIM 78947-1.1 UNIT/ML-% SOLN 1 drop in affected e ye every 3 hours while awake x 7 days POLYTRIM 29486-3.1 UNIT/ML-% SOLN 83770 7 POLYMYXIN B-TRIMETHOPRIM Inactive COUMADIN 4 MG TABS 1 tablet daily COUMADIN 4 MG TABS 350705 WARFARIN SODIUM Inactive CLONIDINE HCL 0.1 MG TABS 1 po bid 7 days, then 1/2 tab po b id 7 days CLONIDINE HCL 0.1 MG TABS 020022 CLONIDINE HCL I nactive ALLOPURINOL 300 MG TABS Take 1 tablet by mouth daily 2 ALLOPURINOL 300 MG TABS 061599 ALLOPURINOL Inactive MECLIZINE HCL 25 MG TAB 1 po tid 3 days, then 1/2 tab tid 3 days MECLIZINE HCL 25 MG TAB 115692 MECLIZINE HCL Inactive LOVENOX 100 MG/ML SC SOLN One injection twice a day 09/15/15 LOVENOX 100 MG/ML SC SOLN 342225 ENOXAPARIN SODIUM Inactive Vital Signs Date Name [...] Ag - Chemistry sodium, serum 141 mmol/L 045-797 1442/07/06 potassium, serum 4.4 mmol/L 3.5-5.2 chloride, serum [...] Panel - Chemistry sodium, serum 137 mmol/L 533-246 4667/11/14 potassium, serum 4.4 mmol/L 3.5-5.2 chloride, serum [...] 8.0 % 4.3-6.0 cholesterol, serum 130 mg/dL 068-513 3982/11/14 triglyceride, serum, fasting 288 mg/dL 30-200 HDL cholesterol, serum 33 mg/dL 32-96 LDL cholesterol, serum 39 mg/dL 0-130 Lab Report: Comp. Metabolic Panel, HGBA1 C, Lipid Panel, Prothrombin Time - Chemistry sodium, serum 136 mmol/L 081-083 4587/12/02 potassium, serum 4.4 mmol/L 3.5-5.2 chloride, serum [...] 7.6 % 4.3-6.0 cholesterol, serum 117 mg/dL 319-039 8379/12/02 triglyceride, serum, fasting 226 mg/dL 30-200 HDL [...] 7.0 % 4.3-6.0 cholesterol, serum 120 mg/dL 832-046 8123/07/06 triglyceride, serum, fasting 186 mg/dL 30-200 HDL [...] 1.0-3.5 Encounters Code Encounter Date Provider Facility CPT-60448 Level 3 Est. Patient 09:37:15 CDT Mitch luis [facility] CPT-61920 Level 3 Est. Patient 17:01:00 CONTROLS PROJECT ENGINEER Mitch luis DO [facility] CPT-77627 Level 3 Est. Patient 13:53:19 CONTROLS PROJECT ENGINEER Mitch Ambrose L jan[facility] CPT-68748 Level 3 Est. Patient 19:19:37 CONTROLS PROJECT ENGINEER Mitch W L janelle [facility] CPT-10283 Level 3 Est. Patient 13:25:53 CONTROLS PROJECT ENGINEER Tavo toure MD [facility] [place]-53588 Level 3 Est. Patient 18:17:28 CDT Mitch W L janelle [facility] CPT-84283 Level 3 Est. Patient 15:22:57 CDT Mitch W L janelle [facility] CPT-40183 Level 3 Est. Patient 18:21:50 CDT Mitch W L janelle [facility] CPT-68956 Level 3 Est. Patient 18:20:38 CDT Mitch W L ee [facility]-90501 Level 3 Est. Patient 15:37:55 CDT Mitch W L janelle [facility] CPT-19105 Level 2 Est. Patient 15:54:44 CDT Carmine benton MD [facility]-76913 Level 3 Est. Patient 21:46:01 CONTROLS PROJECT ENGINEER Mitch W L janelle [facility] CPT-77007 Level 3 Est. Patient 22:15:50 CDT Mitch W L ee [facility] CPT-51742 Level 3 Est. Patient 10:48:15 CDT Mitch W L ee [facility] CPT-99043 Level 3 Est. Patient 23:20:57 CDT Tavo toure MD [facility] CPT-49745 Level 3 Est. Patient 16:26:13 CDT Mitch luis DO [facility] Procedures Code Procedure Name Date Entry Date Standard Desc ription CPT-10460 No Charge Offi Visit 21:36:07 CDT 1 CPT-27233 Venipuncture Draw Fee 10:13:28 CONTROLS PROJECT ENGINEER CPT-50338 Venipuncture Draw Fee 08:31:11 CDT CPT-82023 Aspir/Inject Med Joint 18:17:28 CDT CPT-47527 Venipuncture Draw Fee 10:13:30 CDT CPT-95499 Venipuncture Draw Fee 08:31:43 CONTROLS PROJECT ENGINEER CPT-JTINJ Joint Injection 18:34:50 CDT CPT-25546 Knee 3V 12:25:09 CDT CPT-78592 Venipuncture Draw Fee 12:15:57 CDT CPT-060 Medical Surveillance Exam 21:31:43 CDT 2011 CPT-02024 Venipuncture Draw Fee 08:32:05 CONTROLS PROJECT ENGINEER CPT-OV Office Visit 18:19:06 CDT
--- OUTSIDE RECORDS SUMMARY | 2020-01-18 12:23 | XMS REPORT | Clinical Summary ---
Author Author Admin, Mitch Leon Organization [facility] Address Unknown Phone Unavailable Allergies, [...] 1 tablet by mouth daily AMLODIPINE BESYLATE 16049699264 No Longer Active Joe Williamson APRN Active MITIGARE 0.6 MG ORAL CAPS 2 capsules at onset of gout pain, then take one capsule at 1 hour if symptoms persist. COLCHICINE 59 756859999 Active Mitch Urbina DO Active COUMADIN 1 MG TAB 2 tabs orally daily with the 5mg tab to equal 7mg daily WARFARIN SODIUM 74139096507 Active Brenda Shen Active COLCRYS 0.6 MG TABS 1 tab qid prn gout COLCHICINE 83930239316 Active Norma Cazares Active INVOKANA 100 MG ORAL TABS 1 tablet orally daily CANAGLIFLOZIN 37940699581 Active Brenda Shen Active MINOXIDIL 2.5 MG TABS 1 tablet daily for high blood pressure 10/23 MINOXIDIL 97558795278 Active Ana Wallace Active MECLIZINE HCL 25 MG TAB 1 po tid 3 days, then 1/2 tab tid 3 days MECLIZINE HCL 52130911831 No Longer Active Corey SEGURA Active ALLOPURINOL 300 MG TABS Take 1 tablet by mouth daily 2 ALLOPURINOL 63006645107 No Longer Active Corey SEGURA Activ e CLONIDINE HCL 0.1 MG TABS 1 po bid 7 days, then 1/2 tab po b id 7 days CLONIDINE HCL 39970483370 No Longer Active Corey SEGURA Active COUMADIN 5 MG TABS 1 tab PO daily WARFARIN SODIUM 53124092675 Active Mitch Urbina DO Active COUMADIN 4 MG TABS 1 tablet daily WARFARIN SODI UM 48273768627 No Longer Active Corey SEGURA Active POLYTRIM 02701-9.1 UNIT/ML-% SOLN 1 drop in affected e ye every 3 hours while awake x 7 days POLYMYXIN B-TRIMETHOPRIM 31234202320 N o Longer Active Corey SEGURA Active LOSARTAN POTASSIUM-HCTZ 100-12.5 MG TABS 1 by mouth da rocky for high blood pressure LOSARTAN POTASSIUM-HCTZ 87818773718 Active Stephy Urbina DO Active LISINOPRIL-HYDROCHLOROTHIAZIDE 20-12.5 MG TABS 1 tab by mouth da rocky LISINOPRIL-HYDROCHLOROTHIAZIDE 45724328913 No Longer Active Mitch luis DO Active LISINOPRIL 20 MG TABS 1 tab po at HS LISINOPRIL 46100535502 No Longer Active Mitch Urbina DO Active COUMADIN 5 MG TABS 1 by mouth every other day WARFARIN SODIUM 78636009579 No Longer Active Mitch Ambrose Carlitos DO Active COUMADIN 6 MG TABS 1 by mouth every other day WARFARIN SODIUM 25209331302 No Longer Active Mitch Urbina DO Active SIMVASTATIN 40 MG TABS 1 tab daily at bedtime S IMVASTATIN 32142153268 Active Mitch Urbina DO Active SIMVASTATIN 20 MG TABS 1 tab daily at bedtime S IMVASTATIN 16799528703 No Longer Active Mitch Urbina DO Active LOVENOX 100 MG/ML SC SOLN One injection twice a day 09/15/15 ENOXAPARIN SODIUM 47130270053 No Longer Active Carmine Navarrete ctive JANUVIA 50 MG TABS Take one by mouth daily DIEGO GLIPTIN PHOSPHATE 88628392933 Active Mitch Urbina DO Active JANUVIA 100 MG TABS 1/2 by mouth every day DIEGO GLIPTIN PHOSPHATE 52653921574 No Longer Active Bijal Segal RN Active METFORMIN HCL 500 MG TABS 2 by mouth twice daily METFORMIN HCL 21871926916 Active Mitch Urbina DO Active GLIMEPIRIDE 4 MG TABS 1 tab po bid GLIMEPIRIDE 607915 85665 Active Mitch Urbina DO Active COLCRYS 0.6 MG TABS 1 po q 6 hours prn gout pain 03/02 COLCHICINE 87683921876 No Longer Active Camila Reese Active LISINOPRIL 5 MG TABS 1 by mouth every day LISIN OPRIL 10901726618 No Longer Active Nguyen Perez Active KLOR-CON 20 MEQ PACK Take one by mouth daily 8 POTASSIUM CHLORIDE 23732189996 No Longer Active Nguyen Perez Active FUROSEMIDE 40 MG TABS 1 by mouth daily FUROSEMI DE 91992141305 No Longer Active Nguyen Perez Active PROVIGIL 200 MG TABS 1/2 tab po q day MODAFINIL 65339 593929 Active Kathie Juan RPT,RMA Active PROVIGIL 100 MG TABS Take one by mouth daily MO DAFINIL 99346514972 No Longer Active Mitch Urbina DO Active BACTRIM DS 800-160 MG TAB 1 tab by mouth twice daily 2 TRIMETHOPRIM-SULFAMETHOXAZOLE 11989239925 No Longer Active Renan Hays MD Active FAMOTIDINE 20 MG TABS by mouth twice a day FAMOTI DINE 02950781676 Active Mitch Urbina DO Active ADULT ASPIRIN LOW STRENGTH 81 MG TBDP 1 by mouth every daily ASPIRIN 39125277419 Active Mitch Urbina DO Active METOPROLOL TARTRATE 50 MG TABS 1 by mouth twice daily METOPROLOL TARTRATE 47486982267 Active Mitch Urbina DO Active BACTRIM DS 800-160 MG TAB 1 tab by mouth twice daily 2 BACTRIM DS 800-160 MG TAB 720490 TRIMETHOPRIM-SULFAMETHOXAZOLE Inac tive PROVIGIL 100 MG TABS Take one by mouth daily 4 PROVIGIL 100 MG TABS 611258 MODAFINIL Inactive FUROSEMIDE 40 MG TABS 1 by mouth daily FU ROSEMIDE 40 MG TABS 993684 FUROSEMIDE Inactive KLOR-CON 20 MEQ PACK Take one by mouth daily 8 KLOR-CON 20 MEQ PACK 6316397 POTASSIUM CHLORIDE Inactive LISINOPRIL 5 MG TABS 1 by mouth every day LISINOPRIL 5 MG TABS 445602 LISINOPRIL Inactive COLCRYS 0.6 MG TABS 1 po q 6 hours prn gout pain 03/02 COLCRYS 0.6 MG TABS 314871 COLCHICINE Inactive JANUVIA 100 MG TABS 1/2 by mouth every day JANUVI A 100 MG TABS SITAGLIPTIN PHOSPHATE Inactive SIMVASTATIN 20 MG TABS 1 tab daily at bedtime SIMVASTATIN 20 MG TABS 533506 SIMVASTATIN Inactive COUMADIN 6 MG TABS 1 by mouth every other day COUMADIN 6 MG TABS 931623 WARFARIN SODIUM Inactive COUMADIN 5 MG TABS 1 by mouth every other day COUMADIN 5 MG TABS 417513 WARFARIN SODIUM Inactive LISINOPRIL 20 MG TABS 1 tab po at HS KOKI NOPRIL 20 MG TABS 018991 LISINOPRIL Inactive LISINOPRIL-HYDROCHLOROTHIAZIDE 20-12.5 MG TABS 1 tab by mouth da rocky LISINOPRIL-HYDROCHLOROTHIAZIDE 20-12.5 MG TABS 563321 LISINOPRIL-HYDROCHLOROTHIAZIDE Inactive POLYTRIM 02211-3.1 UNIT/ML-% SOLN 1 drop in affected e ye every 3 hours while awake x 7 days POLYTRIM 30824-9.1 UNIT/ML-% SOLN 96967 7 POLYMYXIN B-TRIMETHOPRIM Inactive COUMADIN 4 MG TABS 1 tablet daily COUMADIN 4 MG TABS 962004 WARFARIN SODIUM Inactive CLONIDINE HCL 0.1 MG TABS 1 po bid 7 days, then 1/2 tab po b id 7 days CLONIDINE HCL 0.1 MG TABS 539097 CLONIDINE HCL I nactive ALLOPURINOL 300 MG TABS Take 1 tablet by mouth daily 2 ALLOPURINOL 300 MG TABS 844963 ALLOPURINOL Inactive MECLIZINE HCL 25 MG TAB 1 po tid 3 days, then 1/2 tab tid 3 days MECLIZINE HCL 25 MG TAB 215769 MECLIZINE HCL Inactive AMLODIPINE BESYLATE 5 MG TABS 1 tablet by mouth daily AMLODIPINE BESYLATE 5 MG TABS 517991 AMLODIPINE BESYLATE Inactive LOVENOX 100 MG/ML SC SOLN One injection twice a day 09/15/15 LOVENOX 100 MG/ML SC SOLN 955492 ENOXAPARIN SODIUM Inactive Vital Signs Date Name [...] Range Description Chart Maintenance: hemoccult added to [facility] - Chemistry occult blood, stool (E&M) Positive Lab Report: Lipid Panel, HEPATIC PANEL, MICROALB/CREAT W/RATIO, HGBA1C, CBC - Chemistry cholesterol, serum 136 mg/dL [phone]/08/09 triglyceride, serum, fasting 187 mg/dL 30-200 HDL [...] 1.0-3.5 Encounters Code Encounter Date Provider Facility CPT-17147 Level 3 Est. Patient 15:10:14 CDT Joe kamara [facility]-66123 Level 3 Est. Patient 15:03:46 CDT Joe kamara [facility] CPT-07484 Level 3 Est. Patient 14:21:06 CDT Mitch luis [facility] CPT-08506 Level 3 Est. Patient 14:52:06 CDT Joe kamara [facility] CPT-89792 Level 3 Est. Patient 09:34:30 [employer]ER [employer]ER Mitch luis [facility] CPT-76201 Level 3 Est. Patient 09:37:15 CDT Mitch luis [facility] CPT-71855 Level 3 Est. Patient 17:01:00 [employer]ER Mitch luis [facility] CPT-33969 Level 3 Est. Patient 13:53:19 [employer]ER Mitch luis [facility] CPT-43955 Level 3 Est. Patient 19:19:37 [employer] RU[employer]ER Mitch luis [facility] CPT-68141 Level 3 Est. Patient 13:25:53 [employer]ER Tavo toure MD [facility] CPT-27905 Level 3 Est. Patient 18:17:28 CDT Mitch luis [facility] CPT-93158 Level 3 Est. Patient 15:22:57 CDT Mitch luis [facility] CPT-07717 Level 3 Est. Patient 18:21:50 CDT Mitch luis [facility] CPT-48476 Level 3 Est. Patient 18:20:38 CDT Mitch luis [facility] CPT-32429 Level 3 Est. Patient 15:37:55 CDT Mitch luis [facility] CPT-05837 Level 2 Est. Patient 15:54:44 CDT Carmine benton MD [facility] CPT-25020 Level 3 Est. Patient 21:46:01 [employer]ER Mitch luis [facility] CPT-21573 Level 3 Est. Patient 22:15:50 CDT Mitch luis [facility] CPT-75825 Level 3 Est. Patient 10:48:15 CDT Mitch luis [facility] CPT-55270 Level 3 Est. Patient 23:20:57 CDT Tavo toure MD [facility] CPT-79050 Level 3 Est. Patient 16:26:13 CDT Mitch luis [facility] Procedures Code Procedure Name Date Entry Date Standard Desc ription CPT-79774 PT/INR - LAB USE ONLY 13:32:49 [employer] CPT-63545 Venipuncture Draw Fee 13:32:49 [employer] CPT-19315 PT/INR - LAB USE ONLY 10:34:49 [employer] CPT-68602 Venipuncture Draw Fee 10:34:48 [employer] CPT-63731 PT/INR - LAB USE ONLY 09:22:03 [employer] CPT-67320 Venipuncture Draw Fee 09:22:02 [employer] CPT-37412 Hemoccult IFOBT - LAB USE ONLY 10:27:22 CDT CPT-47346 Venipuncture Draw Fee 08:27:08 CDT CPT-64133 Liver Profile - LAB USE ONLY 08:27:07 CDT 2 CPT-77554 Microalbumin - LAB USE ONLY 08:27:07 CDT 20 25/05/09 CPT-30661 PT/INR - LAB USE ONLY 08:27:07 CDT CPT-24055 HGBA1C - LAB USE ONLY 08:27:07 CDT CPT-61107 CBC - LAB USE ONLY 08:27:07 CDT CPT-47626 Venipuncture Draw Fee 11:09:14 CDT CPT-87928 Venipuncture Draw Fee 08:32:21 [employer] CPT-78856 Venipuncture Draw Fee 09:38:56 [employer] CPT-63839 No Charge Offi Visit 21:36:07 CDT 1 CPT-17088 Venipuncture Draw Fee 10:13:28 [employer] CPT-76906 Venipuncture Draw Fee 08:31:11 CDT CPT-98358 Aspir/Inject Med Joint 18:17:28 CDT CPT-44448 Venipuncture Draw Fee 10:13:30 CDT CPT-07859 Venipuncture Draw Fee 08:31:43 [employer]ER FOAM RU[employer]ER CPT-JTINJ Joint Injection 18:34:50 CDT CPT-92602 Knee 3V 12:25:09 CDT CPT-63684 Venipuncture Draw Fee 12:15:57 CDT CPT-060 Medical Surveillance Exam 21:31:43 CDT 2011 CPT-68371 Venipuncture Draw Fee 08:32:05 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
--- OUTSIDE RECORDS SUMMARY | 2020-01-18 12:24 | XMS REPORT | Clinical Summary ---
Author Author Admin, Mitch Leon Organization [facility] Address Unknown Phone Unavailable Allergies, Adverse Reactions, [...] complicating a procedure HYPERLIPIDEMIA 272.4 Active Renan Hasy MD Other and unspecified hyperlipidemia DIABETES, TYPE [...] Coronary atherosclerosis of unspecified type of vessel, [place] or graft EDEMA 782.3 Active Mitch Urbina [...] 1 tablet by mouth daily AMLODIPINE BESYLATE 92996339215 Active Mitch Urbina DO Active MECLIZINE HCL 25 MG TAB 1 po tid 3 days, then 1/2 tab tid 3 days MECLIZINE HCL 16219546134 No Longer Active Corey SEGURA Active ALLOPURINOL 300 MG TABS Take 1 tablet by mouth daily 2 ALLOPURINOL 13212368444 No Longer Active Corey SEGURA Activ e CLONIDINE HCL 0.1 MG TABS 1 po bid 7 days, then 1/2 tab po b id 7 days CLONIDINE HCL 98558986711 No Longer Active Corey SEGURA Active COUMADIN 5 MG TABS 1 tab PO daily WARFARIN SODIUM 96318815273 Active Mitch Urbina DO Active COUMADIN 4 MG TABS 1 tablet daily WARFARIN SODI UM 18612661896 No Longer Active Corey SEGURA Active POLYTRIM 96768-5.1 UNIT/ML-% SOLN 1 drop in affected e ye every 3 hours while awake x 7 days POLYMYXIN B-TRIMETHOPRIM 66787485470 N o Longer Active Corey SEGURA Active LOSARTAN POTASSIUM-HCTZ 100-12.5 MG TABS 1 by mouth [place] for high blood pressure LOSARTAN POTASSIUM-HCTZ 72906670271 Active Stephy Urbina DO Active LISINOPRIL-HYDROCHLOROTHIAZIDE 20-12.5 MG TABS 1 tab by mouth da rocky LISINOPRIL-HYDROCHLOROTHIAZIDE 91294325348 No Longer Active Mitch luis DO Active LISINOPRIL 20 MG TABS 1 tab po at HS LISINOPRIL 97169209763 No Longer Active Mitch Urbina DO Active COUMADIN 5 MG TABS 1 by mouth every other day WARFARIN SODIUM 11970097984 No Longer Active Mitch Urbina DO Active COUMADIN 6 MG TABS 1 by mouth every other day WARFARIN SODIUM 66351691474 No Longer Active Mitch Urbina DO Active COLCRYS 0.6 MG TABS 1 tab qid prn gout COLCHICINE 18687455122 Active Mitch Urbina DO Active SIMVASTATIN 40 MG TABS 1 tab daily at bedtime S IMVASTATIN 94623128560 Active Mitch Urbina DO Active SIMVASTATIN 20 MG TABS 1 tab daily at bedtime S IMVASTATIN 70987290888 No Longer Active Mitch Urbina DO Active LOVENOX 100 MG/ML SC SOLN One injection twice a day 09/15/15 ENOXAPARIN SODIUM 28302918858 No Longer Active Carmine Navarrete ctive JANUVIA 50 MG TABS Take one by mouth daily DIEGO GLIPTIN PHOSPHATE 92825975519 Active Mitch Urbina DO Active JANUVIA 100 MG TABS 1/2 by mouth every day DIEGO GLIPTIN PHOSPHATE 13145094976 No Longer Active Bijal Philipp RN Active METFORMIN HCL 500 MG TABS 2 by mouth twice daily METFORMIN HCL 28716619328 Active Mitch Urbina DO Active GLIMEPIRIDE 4 MG TABS 1 tab po bid GLIMEPIRIDE 689899 99277 Active Mitch Urbina DO Active COLCRYS 0.6 MG TABS 1 po q 6 hours prn gout pain 03/02 COLCHICINE 75348077632 No Longer Active Camila Reese Active LISINOPRIL 5 MG TABS 1 by mouth every day LISIN OPRIL 73335536635 No Longer Active Nguyenmolly Perez Active KLOR-CON 20 MEQ PACK Take one by mouth daily 8 POTASSIUM CHLORIDE 70346651717 No Longer Active Nguyen Perez Active FUROSEMIDE 40 MG TABS 1 by mouth daily FUROSEMI DE 71135286272 No Longer Active Nguyen Perez Active PROVIGIL 200 MG TABS 1/2 tab po q day MODAFINIL 55412 718726 Active Mitch Urbina DO Active PROVIGIL 100 MG TABS Take one by mouth daily MO DAFINIL 30267640570 No Longer Active Mitch Urbina DO Active BACTRIM DS 800-160 MG TAB 1 tab by mouth twice daily 2 TRIMETHOPRIM-SULFAMETHOXAZOLE 17135733058 No Longer Active Renan Hays MD Active FAMOTIDINE 20 MG TABS by mouth twice a day FAMOTI DINE 64028828724 Active Mitch Urbina DO Active ADULT ASPIRIN LOW STRENGTH 81 MG TBDP 1 by mouth every daily ASPIRIN 28715195305 Active Mitch Urbina DO Active METOPROLOL TARTRATE 50 MG TABS 1 by mouth twice daily METOPROLOL TARTRATE 25392063092 Active Mitch W Carlitos DO Active BACTRIM DS 800-160 MG TAB 1 tab by mouth twice daily 2 BACTRIM DS 800-160 MG TAB TRIMETHOPRIM-SULFAMETHOXAZOLE Inac tive PROVIGIL 100 MG TABS Take one by mouth daily 4 PROVIGIL 100 MG TABS 493391 MODAFINIL Inactive FUROSEMIDE 40 MG TABS 1 by mouth daily FU ROSEMIDE 40 MG TABS 593329 FUROSEMIDE Inactive KLOR-CON 20 MEQ PACK Take one by mouth daily 8 KLOR-CON 20 MEQ PACK 098000 POTASSIUM CHLORIDE Inactive LISINOPRIL 5 MG TABS 1 by mouth every day LISINOPRIL 5 MG TABS 120447 LISINOPRIL Inactive COLCRYS 0.6 MG TABS 1 po q 6 hours prn gout pain 03/02 COLCRYS 0.6 MG TABS COLCHICINE Inactive JANUVIA 100 MG TABS 1/2 by mouth every day JANUVI A 100 MG TABS SITAGLIPTIN PHOSPHATE Inactive SIMVASTATIN 20 MG TABS 1 tab daily at bedtime SIMVASTATIN 20 MG TABS 461706 SIMVASTATIN Inactive COUMADIN 6 MG TABS 1 by mouth every other day COUMADIN 6 MG TABS 445305 WARFARIN SODIUM Inactive COUMADIN 5 MG TABS 1 by mouth every other day COUMADIN 5 MG TABS 918026 WARFARIN SODIUM Inactive LISINOPRIL 20 MG TABS 1 tab po at HS KOKI NOPRIL 20 MG TABS 734851 LISINOPRIL Inactive LISINOPRIL-HYDROCHLOROTHIAZIDE 20-12.5 MG TABS 1 tab by mouth da rocky LISINOPRIL-HYDROCHLOROTHIAZIDE 20-12.5 MG TABS 908252 LISINOPRIL-HYDROCHLOROTHIAZIDE Inactive POLYTRIM 81755-6.1 UNIT/ML-% SOLN 1 drop in affected e ye every 3 hours while awake x 7 days POLYTRIM 34621-7.1 UNIT/ML-% SOLN 03066 7 POLYMYXIN B-TRIMETHOPRIM Inactive COUMADIN 4 MG TABS 1 tablet daily COUMADIN 4 MG TABS 085655 WARFARIN SODIUM Inactive CLONIDINE HCL 0.1 MG TABS 1 po bid 7 days, then 1/2 tab po b id 7 days CLONIDINE HCL 0.1 MG TABS 882505 CLONIDINE HCL I nactive ALLOPURINOL 300 MG TABS Take 1 tablet by mouth daily 2 ALLOPURINOL 300 MG TABS 682646 ALLOPURINOL Inactive MECLIZINE HCL 25 MG TAB 1 po tid 3 days, then 1/2 tab tid 3 days MECLIZINE HCL 25 MG TAB 751512 MECLIZINE HCL Inactive LOVENOX 100 MG/ML SC SOLN One injection twice a day 09/15/15 LOVENOX 100 MG/ML SC SOLN 728563 ENOXAPARIN SODIUM Inactive Vital Signs Date Name [...] Description Append: Anticoagulation Management - Coa gulation coagulation managed by Mitch Urbina DO international normalized ratio (INR) Lab Report: CBC, Comp. Metabolic Panel, HGBA1C, MICROALBUMIN, Uric Acid - Chemistry sodium, serum 136 mmol/L 367-732 3307/07/25 potassium, serum 4.6 mmol/L 3.5-5.2 chloride, serum [...] leukocyte count, blood 6.6 10^3/MM^3 10*3/mm3 4.6-10.2 mean corpuscular hemoglobin, RBC 25.6 pg 27. 0-31.2 mean corpuscular volume, RBC 80 fL 80-97 hematocrit, blood 40.1 % 41.0-53.0 hemoglobin, blood 12.8 g/dL 13.5-17.5 erythrocyte (RBC) count 5.02 10^6/MM^3 10*6/mm3 4.69-6.1 3 mean corpuscular hemoglobin concentration, RBC 32.0 G/DL % 31.8-35.4 red blood cell distribution width 18.3 % 11 .6-14.8 platelet count 277 10^3/MM^3 10*3/mm3 142-424 Lab Report: CBC, Comp. Metabolic Panel, HGBA1C, MICROALBUMIN, Uric Acid - Lab microalbumin, urine 30 0-19 Lab Report: Comp. Metabolic Panel, HGBA1 C, Lipid Panel - Chemistry carbon dioxide, venous blood 33.0 mmol/L 21.0-32 [...] 8.0 % 4.3-6.0 cholesterol, serum 130 mg/dL 267-013 0067/11/14 triglyceride, serum, fasting 288 mg/dL 30-200 HDL cholesterol, serum 33 mg/dL 32-96 LDL cholesterol, serum 39 mg/dL 0-130 sodium, serum 137 mmol/L 033-714 1518/11/14 potassium, serum 4.4 mmol/L 3.5-5.2 chloride, serum 100 mmol/L 98-107 Lab Report: Comp. Metabolic Panel, HGBA1 C, Lipid Panel, Prothrombin Time - Chemistry potassium, serum 4.4 mmol/L 3.5-5.2 chloride, serum 101 mmol/L 98-107 carbon dioxide, venous blood 29.0 mmol/L 21.0-32 .0 sodium, serum 136 mmol/L 423-495 4548/12/02 blood glucose 149 mg/dL 65-110 urea nitrogen, blood 29 mg/dL 7-18 creatinine, serum 1.20 mg/dL 0.60-1.30 alanine aminotransferase (SGPT), serum 46 U/L 12-78 aspartate aminotransferase (SGOT), serum 34 U/L 15-37 calcium, serum 10.3 mg/dL 8.5-10.1 bilirubin, serum, total 0.60 mg/dL 0.00-1.00 hemoglobin A1C, blood, as % of total hemoglobin 7.6 % 4.3-6.0 cholesterol, serum 117 mg/dL 784-498 9154/12/02 triglyceride, serum, fasting 226 mg/dL 30-200 HDL cholesterol, serum 30 mg/dL 32-96 LDL cholesterol, serum 42 mg/dL 0-130 Lab Report: Comp. Metabolic Panel, HGBA1 C, Lipid Panel, Prothrombin Time - Coagulation prothrombin time (patient) 16.3 SECS s 11.1-13.4 international normalized ratio (INR) 1.7 1.0-3.5 Lab Report: Prothrombin Time - Coagulati on international normalized ratio (INR) 2.2 1.0-3.5 prothrombin time (patient) 19.9 SECS s 11.1-13.4 international normalized ratio (INR) 2.6 1.0-3.5 prothrombin time (patient) 18.6 SECS s 11.1-13.4 international normalized ratio (INR) 2.2 1.0-3.5 prothrombin time (patient) 18.4 SECS s 11.1-13.4 prothrombin time (patient) 18.4 SECS s 11.1-13.4 international normalized ratio (INR) 2.2 1.0-3.5 prothrombin time (patient) 16.0 SECS s 11.1-13.4 international normalized ratio (INR) 1.7 1.0-3.5 Encounters Code Encounter Date Provider Facility CPT-35830 Level 3 Est. Patient 17:01:00 EXAMINING CHAIR ASSEMBLER Mitch luis DO [facility] CPT-84605 Level 3 Est. Patient 13:53:19 EXAMINING CHAIR ASSEMBLER Mitch W L janelle DO [facility] CPT-38510 Level 3 Est. Patient 19:19:37 EXAMINING CHAIR ASSEMBLER Mitch W L ee [facility] CPT-41183 Level 3 Est. Patient 13:25:53 EXAMINING CHAIR ASSEMBLER Tavo toure MD [facility]-86078 Level 3 Est. Patient 18:17:28 CDT Mitch Ambrose L janelle [facility] CPT-15854 Level 3 Est. Patient 15:22:57 CDT Mitch W L janelle [facility] CPT-77650 Level 3 Est. Patient 18:21:50 CDT Mitch W L janelle [facility] CPT-66527 Level 3 Est. Patient 18:20:38 CDT Mitch W L janelle [facility] CPT-60461 Level 3 Est. Patient 15:37:55 CDT Mitch W L janelle [facility] CPT-57752 Level 2 Est. Patient 15:54:44 CDT Carmine benton MD [facility]-53424 Level 3 Est. Patient 21:46:01 EXAMINING CHAIR ASSEMBLER Mitch W L janelle [facility] CPT-82907 Level 3 Est. Patient 22:15:50 CDT Mitch W L ee [facility] CPT-88739 Level 3 Est. Patient 10:48:15 CDT Mitch W L ee [facility] CPT-07062 Level 3 Est. Patient 23:20:57 CDT Tavo toure MD [facility] CPT-22046 Level 3 Est. Patient 16:26:13 CDT Mitch luis DO [facility] Procedures Code Procedure Name Date Entry Date Standard Desc ription CPT-22939 Venipuncture Draw Fee 10:13:28 EXAMINING CHAIR ASSEMBLER CPT-91269 Venipuncture Draw Fee 08:31:11 CDT CPT-92345 Aspir/Inject Med Joint 18:17:28 CDT CPT-45195 Venipuncture Draw Fee 10:13:30 CDT CPT-64289 Venipuncture Draw Fee 08:31:43 EXAMINING CHAIR ASSEMBLER CPT-JTINJ Joint Injection 18:34:50 CDT CPT-64491 Knee 3V 12:25:09 CDT CPT-92077 Venipuncture Draw Fee 12:15:57 CDT CPT-060 Medical Surveillance Exam 21:31:43 CDT 2011 CPT-49973 Venipuncture Draw Fee 08:32:05 EXAMINING CHAIR ASSEMBLER CPT-OV Office Visit 18:19:06 CDT
--- OUTSIDE RECORDS SUMMARY | 2020-01-18 12:24 | XMS REPORT | Clinical Summary ---
Author Author Admin, Mitch Leon Organization [facility] Address Unknown Phone Unavailable Allergies, Adverse [...] Coronary atherosclerosis of unspecified type of vessel, [place] or graft EDEMA 782.3 Resolved Mitch Urbina [...] tab to equal 7mg daily WARFARIN SODIUM 30067071806 Active Kathie Juan RPT,R MA Active COLCRYS 0.6 MG TABS 1 tab qid prn gout COLCHICINE 46885114433 Active Kathie Juan RPT,RMA Active INVOKANA 100 MG ORAL TABS 1 tablet orally daily CANAGLIFLOZIN 10666466646 Active Kathie Juan RPT,RMA Active MINOXIDIL 2.5 MG TABS 1 tablet daily for high blood pressure 10/23 MINOXIDIL 24728612344 Active Mitch Arnol Carlitos VELASQUEZ Active AMLODIPINE BESYLATE 5 MG TABS 1 tablet by mouth daily AMLODIPINE BESYLATE 56553883122 Active Domi Rivera MA Active MECLIZINE HCL 25 MG TAB 1 po tid 3 days, then 1/2 tab tid 3 days MECLIZINE HCL 54407397111 No Longer Active Corey SEGURA Active ALLOPURINOL 300 MG TABS Take 1 tablet by mouth daily 2 ALLOPURINOL 17545057639 No Longer Active Corey SEGURA Activ e CLONIDINE HCL 0.1 MG TABS 1 po bid 7 days, then 1/2 tab po b id 7 days CLONIDINE HCL 78305847057 No Longer Active Corey SEGURA Active COUMADIN 5 MG TABS 1 tab PO daily WARFARIN SODIUM 05483019319 Active Domi Rivera MA Active COUMADIN 4 MG TABS 1 tablet daily WARFARIN SODI UM 13998266027 No Longer Active Corey SEGURA Active POLYTRIM 18267-5.1 UNIT/ML-% SOLN 1 drop in affected e ye every 3 hours while awake x 7 days POLYMYXIN B-TRIMETHOPRIM 76062726903 N o Longer Active Corey SEGURA Active LOSARTAN POTASSIUM-HCTZ 100-12.5 MG TABS 1 by mouth [place] for high blood pressure LOSARTAN POTASSIUM-HCTZ 20821909289 Active Domi Rivera MA Active LISINOPRIL-HYDROCHLOROTHIAZIDE 20-12.5 MG TABS 1 tab by mouth [place] LISINOPRIL-HYDROCHLOROTHIAZIDE 70688712382 No Longer Active Mitch luis DO Active LISINOPRIL 20 MG TABS 1 tab po at HS LISINOPRIL 88161697479 No Longer Active Mitch Urbina DO Active COUMADIN 5 MG TABS 1 by mouth every other day WARFARIN SODIUM 23329474925 No Longer Active Mitch Urbina DO Active COUMADIN 6 MG TABS 1 by mouth every other day WARFARIN SODIUM 12611096070 No Longer Active Mitch Urbina DO Active SIMVASTATIN 40 MG TABS 1 tab daily at bedtime S IMVASTATIN 05439097166 Active Domi Rivera MA Active SIMVASTATIN 20 MG TABS 1 tab daily at bedtime S IMVASTATIN 47096767303 No Longer Active Mitch Urbina DO Active LOVENOX 100 MG/ML SC SOLN One injection twice a day 09/15/15 ENOXAPARIN SODIUM 19949610658 No Longer Active Carmine Yusuf MD A ctive JANUVIA 50 MG TABS Take one by mouth daily DIEGO GLIPTIN PHOSPHATE 13329290662 Active Tavo Hilton MD Active JANUVIA 100 MG TABS 1/2 by mouth every day DIEGO GLIPTIN PHOSPHATE 30056596360 No Longer Active Bijal Segal RN Active METFORMIN HCL 500 MG TABS 2 by mouth twice daily METFORMIN HCL 76784408690 Active Mitch Urbina DO Active GLIMEPIRIDE 4 MG TABS 1 tab po bid GLIMEPIRIDE 953724 93461 Active Mitch Urbina DO Active COLCRYS 0.6 MG TABS 1 po q 6 hours prn gout pain 03/02 COLCHICINE 60537718105 No Longer Active Camila Reese Active LISINOPRIL 5 MG TABS 1 by mouth every day LISIN OPRIL 06544735234 No Longer Active Nguyenmolly Perez Active KLOR-CON 20 MEQ PACK Take one by mouth daily 8 POTASSIUM CHLORIDE 56478193569 No Longer Active Nguyenmolly Perez Active FUROSEMIDE 40 MG TABS 1 by mouth daily FUROSEMI DE 08027199616 No Longer Active Nguyenmolly Perez Active PROVIGIL 200 MG TABS 1/2 tab po q day MODAFINIL 44120 088624 Active Domi Rivera MA Active PROVIGIL 100 MG TABS Take one by mouth daily MO DAFINIL 03026847711 No Longer Active Mitch Urbina DO Active BACTRIM DS 800-160 MG TAB 1 tab by mouth twice daily 2 TRIMETHOPRIM-SULFAMETHOXAZOLE 48964705167 No Longer Active Renan Hays MD Active FAMOTIDINE 20 MG TABS by mouth twice a day FAMOTI DINE 28545149247 Active Mitch Urbina DO Active ADULT ASPIRIN LOW STRENGTH 81 MG TBDP 1 by mouth every daily ASPIRIN 96318105472 Active Mitch Urbina DO Active METOPROLOL TARTRATE 50 MG TABS 1 by mouth twice daily METOPROLOL TARTRATE 36140980314 Active Domi Rivera MA Active BACTRIM DS 800-160 MG TAB 1 tab by mouth twice daily 2 BACTRIM DS 800-160 MG TAB 432545 TRIMETHOPRIM-SULFAMETHOXAZOLE Inac tive PROVIGIL 100 MG TABS Take one by mouth daily 4 PROVIGIL 100 MG TABS 742990 MODAFINIL Inactive FUROSEMIDE 40 MG TABS 1 by mouth daily FU ROSEMIDE 40 MG TABS 977008 FUROSEMIDE Inactive KLOR-CON 20 MEQ PACK Take one by mouth daily 8 KLOR-CON 20 MEQ PACK 534148 POTASSIUM CHLORIDE Inactive LISINOPRIL 5 MG TABS 1 by mouth every day LISINOPRIL 5 MG TABS 113185 LISINOPRIL Inactive COLCRYS 0.6 MG TABS 1 po q 6 hours prn gout pain 03/02 COLCRYS 0.6 MG TABS 317959 COLCHICINE Inactive JANUVIA 100 MG TABS 1/2 by mouth every day JANUVI A 100 MG TABS SITAGLIPTIN PHOSPHATE Inactive SIMVASTATIN 20 MG TABS 1 tab daily at bedtime SIMVASTATIN 20 MG TABS 428009 SIMVASTATIN Inactive COUMADIN 6 MG TABS 1 by mouth every other day COUMADIN 6 MG TABS 070757 WARFARIN SODIUM Inactive COUMADIN 5 MG TABS 1 by mouth every other day COUMADIN 5 MG TABS 091160 WARFARIN SODIUM Inactive LISINOPRIL 20 MG TABS 1 tab po at HS [place]OKI NOPRIL 20 MG TABS 896891 LISINOPRIL Inactive LISINOPRIL-HYDROCHLOROTHIAZIDE 20-12.5 MG TABS 1 tab by mouth da [place] LISINOPRIL-HYDROCHLOROTHIAZIDE 20-12.5 MG TABS 137540 LISINOPRIL-HYDROCHLOROTHIAZIDE Inactive POLYTRIM 90126-6.1 UNIT/ML-% SOLN 1 drop in affected e ye every 3 hours while awake x 7 days POLYTRIM 34844-6.1 UNIT/ML-% SOLN 67568 7 POLYMYXIN B-TRIMETHOPRIM Inactive COUMADIN 4 MG TABS 1 tablet daily COUMADIN 4 MG TABS 729941 WARFARIN SODIUM Inactive CLONIDINE HCL 0.1 MG TABS 1 po bid 7 days, then 1/2 tab po b id 7 days CLONIDINE HCL 0.1 MG TABS 516165 CLONIDINE HCL I nactive ALLOPURINOL 300 MG TABS Take 1 tablet by mouth daily 2 ALLOPURINOL 300 MG TABS 067426 ALLOPURINOL Inactive MECLIZINE HCL 25 MG TAB 1 po tid 3 days, then 1/2 tab tid 3 days MECLIZINE HCL 25 MG TAB 561505 MECLIZINE HCL Inactive LOVENOX 100 MG/ML SC SOLN One injection twice a day 20 09/15/15 LOVENOX 100 MG/ML SC SOLN 475420 ENOXAPARIN SODIUM Inactive Vital Signs Date Name [...] - Chem istry sodium, serum 136 mmol/L 628-320 6861/01/14 carbon dioxide, venous blood 25.4 mmol/L 21.0-32 [...] normalized ratio (INR) 2.1 1.0-3.5 Lab Report: Prothrombin Time - Coagulati on prothrombin time (patient) 16.9 SECS s 11.1-13.4 international normalized ratio (INR) 2.0 1.0-3.5 prothrombin time (patient) 15.4 SECS s 11.1-13.4 international normalized ratio (INR) 1.5 1.0-3.5 prothrombin time (patient) 18.1 SECS s [...] 1.0-3.5 Encounters Code Encounter Date Provider Facility CPT-69111 Level 3 Est. Patient 09:34:30 AMMONIUM NITRATE NEUTRALIZER Mitch luis [facility] CPT-97192 Level 3 Est. Patient 09:37:15 CDT Mitch luis [facility] CPT-74423 Level 3 Est. Patient 17:01:00 AMMONIUM NITRATE NEUTRALIZER Mitch luis [facility] CPT-73340 Level 3 Est. Patient 13:53:19 AMMONIUM NITRATE NEUTRALIZER Mitch luis [facility] CPT-90105 Level 3 Est. Patient 19:19:37 AMMONIUM NITRATE NEUTRALIZER Mitch luis [facility] CPT-63757 Level 3 Est. Patient 13:25:53 AMMONIUM NITRATE NEUTRALIZER Tavo toure MD [facility] CPT-12047 Level 3 Est. Patient 18:17:28 CDT Mitch luis [facility] CPT-81935 Level 3 Est. Patient 15:22:57 CDT Mitch luis [facility] CPT-75164 Level 3 Est. Patient 18:21:50 CDT Mitch luis [facility] CPT-40499 Level 3 Est. Patient 18:20:38 CDT Mitch luis [facility] CPT-77137 Level 3 Est. Patient 15:37:55 CDT Mitch luis [facility] CPT-71911 Level 2 Est. Patient 15:54:44 CDT Carmine benton MD [facility] CPT-73429 Level 3 Est. Patient 21:46:01 AMMONIUM NITRATE NEUTRALIZER Mitch luis [facility] CPT-04138 Level 3 Est. Patient 22:15:50 CDT Mitch luis [facility] CPT-70624 Level 3 Est. Patient 10:48:15 CDT Mitch Ambrose L janelle [facility] CPT-37280 Level 3 Est. Patient 23:20:57 CDT Tavo toure MD [facility] CPT-26230 Level 3 Est. Patient 16:26:13 CDT Mitch Castellano janelle [facility] Procedures Code Procedure Name Date Entry Date Standard Desc ription CPT-94188 Venipuncture Draw Fee 11:09:14 CDT CPT-07636 Venipuncture Draw Fee 08:32:21 AMMONIUM NITRATE NEUTRALIZER CPT-77403 Venipuncture Draw Fee 09:38:56 AMMONIUM NITRATE NEUTRALIZER CPT-40656 No Charge Offi Visit 21:36:07 CDT 1 CPT-31877 Venipuncture Draw Fee 10:13:28 AMMONIUM NITRATE NEUTRALIZER CPT-87703 Venipuncture Draw Fee 08:31:11 CDT CPT-55853 Aspir/Inject Med Joint 18:17:28 CDT CPT-61276 Venipuncture Draw Fee 10:13:30 CDT CPT-49349 Venipuncture Draw Fee 08:31:43 AMMONIUM NITRATE NEUTRALIZER CPT-JTINJ Joint Injection 18:34:50 CDT CPT-47031 Knee 3V 12:25:09 CDT CPT-22948 Venipuncture Draw Fee 12:15:57 CDT CPT-060 Medical Surveillance Exam 21:31:43 CDT 2011 CPT-09489 Venipuncture Draw Fee 08:32:05 AMMONIUM NITRATE NEUTRALIZER CPT-OV Office Visit 18:19:06 CDT
--- OUTSIDE RECORDS SUMMARY | 2020-01-18 12:24 | XMS REPORT | Clinical Summary ---
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 3 Active Mitch Arnol Urbina DO Osteoarthrosis, unsp ecified whether generalized or localized, involving lower leg DIZZINESS 780.4 Resolved Mitch Anrol Urbina DO Dizziness and giddiness CAROTID BRUIT, [...] Mitch Urbina DO REACTIVE HYPOGLYCEMIA ICD-251.2 Inactive Micth Urbina DO LONG-TERM (CURRENT) USE OF ANTICOAGULANTS [...] 500 MG CAP 1 po qid CEPHALEXIN 15477787046 Act juan Mitch Arnol Urbina DO Active LOSARTAN POTASSIUM 100 MG TABS 1 pill by mouth daily, for bl ood pressure LOSARTAN POTASSIUM 48319728412 Active Ana Wallace Active AMLODIPINE BESYLATE 5 MG TABS 1 tablet by mouth daily AMLODIPINE BESYLATE 81213343429 No Longer Active Catherinecarlitos Ryandonaldo VALENCIA Active MITIGARE 0.6 MG ORAL CAPS 2 capsules at onset of gout pain, then take one capsule at 1 hour if symptoms persist. COLCHICINE 59 930229432 Active Mitch Urbina DO Active COUMADIN 1 MG TAB 2 tabs orally daily with the 5mg tab to equal 7mg daily WARFARIN SODIUM 01286816643 Active Mitch Urbina DO Active COLCRYS 0.6 MG TABS 1 tab qid prn gout COLCHICINE 48917484509 Active Norma Cazares Active INVOKANA 100 MG ORAL TABS 1 tablet orally daily CANAGLIFLOZIN 19890485071 Active Mitch Urbina DO Active MINOXIDIL 2.5 MG TABS 1 tablet daily for high blood pressure 10/23 MINOXIDIL 11343732686 Active Mitch Urbina DO Active MECLIZINE HCL 25 MG TAB 1 po tid 3 days, then 1/2 tab tid 3 days MECLIZINE HCL 38129026973 No Longer Active Corey SEGURA Active ALLOPURINOL 300 MG TABS Take 1 tablet by mouth daily 2 ALLOPURINOL 19319659638 No Longer Active Corey SEGURA Activ e CLONIDINE HCL 0.1 MG TABS 1 po bid 7 days, then 1/2 tab po b id 7 days CLONIDINE HCL 62569702837 No Longer Active Corey SEGURA Active COUMADIN 5 MG TABS 1 tab PO daily WARFARIN SODIUM 55997819661 Active Mitch Urbina DO Active COUMADIN 4 MG TABS 1 tablet daily WARFARIN SODI UM 00470604900 No Longer Active Corey SEGURA Active POLYTRIM 45590-3.1 UNIT/ML-% SOLN 1 drop in affected e ye every 3 hours while awake x 7 days POLYMYXIN B-TRIMETHOPRIM 80233544760 N o Longer Active Corey SEGURA Active LOSARTAN POTASSIUM-HCTZ 100-12.5 MG TABS 1 by mouth [place] for high blood pressure LOSARTAN POTASSIUM-HCTZ 42700498320 No Longer A ctive Mitch Urbina DO Active LISINOPRIL-HYDROCHLOROTHIAZIDE 20-12.5 MG TABS 1 tab by mouth [place] LISINOPRIL-HYDROCHLOROTHIAZIDE 11339452510 No Longer Active Mitch Castellano janelle DO Active LISINOPRIL 20 MG TABS 1 tab po at HS LISINOPRIL 39252474551 No Longer Active Mitch Urbina DO Active COUMADIN 5 MG TABS 1 by mouth every other day WARFARIN SODIUM 98918788557 No Longer Active Mitch Urbina DO Active COUMADIN 6 MG TABS 1 by mouth every other day WARFARIN SODIUM 15068429579 No Longer Active Mitch Urbina DO Active SIMVASTATIN 40 MG TABS 1 tab daily at bedtime S IMVASTATIN 92391695642 Active Mitch Urbina DO Active SIMVASTATIN 20 MG TABS 1 tab daily at bedtime S IMVASTATIN 18090004538 No Longer Active Mitch Urbina DO Active LOVENOX 100 MG/ML SC SOLN One injection twice a day 09/15/15 ENOXAPARIN SODIUM 51121079052 No Longer Active Carmine Navarrete ctive JANUVIA 50 MG TABS Take one by mouth daily DIEGO GLIPTIN PHOSPHATE 19374002666 Active Mitch Urbina DO Active JANUVIA 100 MG TABS 1/2 by mouth every day DIEGO GLIPTIN PHOSPHATE 64696763932 No Longer Active Bijal Segal RN Active METFORMIN HCL 500 MG TABS 2 by mouth twice daily METFORMIN HCL 95690195146 Active Mitch Urbina DO Active GLIMEPIRIDE 4 MG TABS 1 tab po bid GLIMEPIRIDE 905376 27254 Active Mitch Urbina DO Active COLCRYS 0.6 MG TABS 1 po q 6 hours prn gout pain 03/02 COLCHICINE 06473562300 No Longer Active Camila Reese Active LISINOPRIL 5 MG TABS 1 by mouth every day LISIN OPRIL 94746481250 No Longer Active Nguyen Perez Active KLOR-CON 20 MEQ PACK Take one by mouth daily 8 POTASSIUM CHLORIDE 41900147820 No Longer Active Nguyen Perez Active FUROSEMIDE 40 MG TABS 1 by mouth daily FUROSEMI DE 54677438815 No Longer Active Nguyenmolly Perez Active PROVIGIL 200 MG TABS 1/2 tab po q day MODAFINIL 80746 277943 Active Mitch Urbina DO Active PROVIGIL 100 MG TABS Take one by mouth daily MO DAFINIL 07934653119 No Longer Active Mitch Urbina DO Active BACTRIM DS 800-160 MG TAB 1 tab by mouth twice daily 2 TRIMETHOPRIM-SULFAMETHOXAZOLE 99541965454 No Longer Active Renan Hays MD Active FAMOTIDINE 20 MG TABS by mouth twice a day FAMOTI DINE 68606664775 Active Mitch Urbina DO Active ADULT ASPIRIN LOW STRENGTH 81 MG TBDP 1 by mouth every daily ASPIRIN 29233659699 Active Mitch Urbina DO Active METOPROLOL TARTRATE 50 MG TABS 1 by mouth twice daily METOPROLOL TARTRATE 69684650246 Active Mitch Urbina DO Active BACTRIM DS 800-160 MG TAB 1 tab by mouth twice daily 2 BACTRIM DS 800-160 MG TAB 998534 TRIMETHOPRIM-SULFAMETHOXAZOLE Inac tive PROVIGIL 100 MG TABS Take one by mouth daily 4 PROVIGIL 100 MG TABS 711982 MODAFINIL Inactive FUROSEMIDE 40 MG TABS 1 by mouth daily FU ROSEMIDE 40 MG TABS 618008 FUROSEMIDE Inactive KLOR-CON 20 MEQ PACK Take one by mouth daily 8 KLOR-CON 20 MEQ PACK 2577827 POTASSIUM CHLORIDE Inactive LISINOPRIL 5 MG TABS 1 by mouth every day LISINOPRIL 5 MG TABS 908076 LISINOPRIL Inactive COLCRYS 0.6 MG TABS 1 po q 6 hours prn gout pain 03/02 COLCRYS 0.6 MG TABS 074681 COLCHICINE Inactive JANUVIA 100 MG TABS 1/2 by mouth every day JANUVI A 100 MG TABS SITAGLIPTIN PHOSPHATE Inactive SIMVASTATIN 20 MG TABS 1 tab daily at bedtime SIMVASTATIN 20 MG TABS 130760 SIMVASTATIN Inactive COUMADIN 6 MG TABS 1 by mouth every other day COUMADIN 6 MG TABS 289193 WARFARIN SODIUM Inactive COUMADIN 5 MG TABS 1 by mouth every other day COUMADIN 5 MG TABS 686636 WARFARIN SODIUM Inactive LISINOPRIL 20 MG TABS 1 tab po at HS KOKI NOPRIL 20 MG TABS 459144 LISINOPRIL Inactive LISINOPRIL-HYDROCHLOROTHIAZIDE 20-12.5 MG TABS 1 tab by mouth [place] LISINOPRIL-HYDROCHLOROTHIAZIDE 20-12.5 MG TABS 017775 LISINOPRIL-HYDROCHLOROTHIAZIDE Inactive POLYTRIM 59560-5.1 UNIT/ML-% SOLN 1 drop in affected e ye every 3 hours while awake x 7 days POLYTRIM 87431-6.1 UNIT/ML-% SOLN 40773 7 POLYMYXIN B-TRIMETHOPRIM Inactive COUMADIN 4 MG TABS 1 tablet daily COUMADIN 4 MG TABS 722184 WARFARIN SODIUM Inactive CLONIDINE HCL 0.1 MG TABS 1 po bid 7 days, then 1/2 tab po b id 7 days CLONIDINE HCL 0.1 MG TABS 712142 CLONIDINE HCL I nactive ALLOPURINOL 300 MG TABS Take 1 tablet by mouth daily 2 ALLOPURINOL 300 MG TABS 402987 ALLOPURINOL Inactive MECLIZINE HCL 25 MG TAB 1 po tid 3 days, then 1/2 tab tid 3 days MECLIZINE HCL 25 MG TAB 981359 MECLIZINE HCL Inactive AMLODIPINE BESYLATE 5 MG TABS 1 tablet by mouth daily AMLODIPINE BESYLATE 5 MG TABS 327988 AMLODIPINE BESYLATE Inactive LOVENOX 100 MG/ML SC SOLN One injection twice a day 09/15/15 LOVENOX 100 MG/ML SC SOLN 381437 ENOXAPARIN SODIUM Inactive Vital Signs Date Name [...] Description Chart Maintenance: hemoccult added to fl owsheet - Chemistry occult blood, stool (E&M) Positive Lab Report: Basic Metabolic Panel - Chem istry sodium, serum 139 mmol/L 917-124 6517/07/17 potassium, serum 4.2 mmol/L 3.5-5.2 chloride, serum [...] ... - Chemistry sodium, serum 144 mmol/L 000-172 8532/06/12 carbon dioxide, venous blood 26.6 mmol/L 21.0-32 .0 potassium, serum 4.2 mmol/L 3.5-5.2 chloride, serum 105 mmol/L 98-107 blood glucose 192 mg/dL 65-110 urea nitrogen, blood 27 mg/dL 7-18 creatinine, serum 1.32 mg/dL 0.55-1.30 alanine aminotransferase (SGPT), serum 32 U/L -78 aspartate aminotransferase (SGOT), serum 27 U/L 15-37 calcium, serum 10.5 mg/dL 8.5-10.1 bilirubin, serum, total 0.70 mg/dL 0.00-1.00 TSH 2.49 m[iU]/mL 0.36-3.74 prostate specific antigen 3.14 ng/mL 0.00-4.00 Lab Report: Lipid Panel, HEPATIC PANEL, MICROALB/CREAT W/RATIO, HGBA1C, CBC - Chemistry cholesterol, serum 136 mg/dL 675-835 7568/08/09 triglyceride, serum, fasting 187 mg/dL 30-200 HDL [...] ratio (INR) 2.7 1.0-3.5 prothrombin time (patient) 15.4 SECS s 11.1-13.4 international normalized ratio (INR) 1.5 1.0-3.5 Encounters Code Encounter Date Provider Facility CPT-64154 Level 3 Est. Patient 19:43:34 CDT Mitch luis [facility] CPT-48938 Level 4 Est. Patient 09:30:18 CDT Mitch luis -59806 Level 3 Est. Patient 15:10:14 CDT Joe kamara [facility]-61119 Level 3 Est. Patient 15:03:46 CDT Joe kamara [facility]-45551 Level 3 Est. Patient 14:21:06 CDT Mitch luis -40967 Level 3 Est. Patient 14:52:06 CDT Joe kamara [facility]-70388 Level 3 Est. Patient 09:34:30 COUNTY MANAGER Mitch luis -05758 Level 3 Est. Patient 09:37:15 CDT Mitch luis -34793 Level 3 Est. Patient 17:01:00 COUNTY MANAGER Mitch luis [facility] CPT-75581 Level 3 Est. Patient 13:53:19 COUNTY MANAGER Mitch luis [facility] CPT-76006 Level 3 Est. Patient 19:19:37 COUNTY MANAGER Mitch luis [facility] CPT-77573 Level 3 Est. Patient 13:25:53 COUNTY MANAGER Tavo touer MD [facility] CPT-77645 Level 3 Est. Patient 18:17:28 CDT Mitch luis [facility] CPT-88268 Level 3 Est. Patient 15:22:57 CDT Mitch luis [facility] CPT-20351 Level 3 Est. Patient 18:21:50 CDT Mitch luis [facility] CPT-24486 Level 3 Est. Patient 18:20:38 CDT Mitch luis [facility] CPT-65731 Level 3 Est. Patient 15:37:55 CDT Mitch luis [facility] CPT-35880 Level 2 Est. Patient 15:54:44 CDT Carmine benton MD [facility] CPT-55813 Level 3 Est. Patient 21:46:01 COUNTY MANAGER Mitch luis [facility] CPT-28626 Level 3 Est. Patient 22:15:50 CDT Mitch luis [facility] CPT-08190 Level 3 Est. Patient 10:48:15 CDT Mitch luis [facility] CPT-71286 Level 3 Est. Patient 23:20:57 CDT Tavo toure MD [facility] CPT-88816 Level 3 Est. Patient 16:26:13 CDT Mitch luis [facility] Procedures Code Procedure Name Date Entry Date Standard Desc ription CPT-95813 Venipuncture Draw Fee 09:26:17 CDT CPT-64340 PT/INR - LAB USE ONLY 13:32:49 COUNTY MANAGER CPT-63444 Venipuncture Draw Fee 13:32:49 COUNTY MANAGER CPT-06350 PT/INR - LAB USE ONLY 10:34:49 COUNTY MANAGER CPT-06407 Venipuncture Draw Fee 10:34:48 COUNTY MANAGER CPT-43017 PT/INR - LAB USE ONLY 09:22:03 COUNTY MANAGER CPT-78978 Venipuncture Draw Fee 09:22:02 COUNTY MANAGER CPT-76076 Hemoccult IFOBT - LAB USE ONLY 10:27:22 CDT CPT-38908 Venipuncture Draw Fee 08:27:08 CDT CPT-84872 Liver Profile - LAB USE ONLY 08:27:07 CDT 2 CPT-82041 Microalbumin - LAB USE ONLY 08:27:07 CDT 20 25/05/09 CPT-93415 PT/INR - LAB USE ONLY 08:27:07 CDT CPT-06636 HGBA1C - LAB USE ONLY 08:27:07 CDT CPT-73231 CBC - LAB USE ONLY 08:27:07 CDT CPT-98013 Venipuncture Draw Fee 11:09:14 CDT CPT-35182 Venipuncture Draw Fee 08:32:21 COUNTY MANAGER CPT-20488 Venipuncture Draw Fee 09:38:56 COUNTY MANAGER CPT-21862 No Charge Offi Visit 21:36:07 CDT 1 CPT-70670 Venipuncture Draw Fee 10:13:28 COUNTY MANAGER CPT-56561 Venipuncture Draw Fee 08:31:11 CDT CPT-00784 Aspir/Inject Med Joint 18:17:28 CDT CPT-36070 Venipuncture Draw Fee 10:13:30 CDT CPT-43336 Venipuncture Draw Fee 08:31:43 COUNTY MANAGER CPT-JTINJ Joint Injection 18:34:50 CDT CPT-46695 Knee 3V 12:25:09 CDT CPT-67749 Venipuncture Draw Fee 12:15:57 CDT CPT-060 Medical Surveillance Exam 21:31:43 CDT 2011 CPT-83531 Venipuncture Draw Fee 08:32:05 COUNTY MANAGER CPT-OV Office Visit 18:19:06 CDT
--- OUTSIDE RECORDS SUMMARY | 2020-01-18 12:24 | XMS REPORT | Clinical Summary ---
Author Author Admin, Mitch Leon Organization [facility] Address Unknown Phone Unavailable Allergies, Adverse Reactions, [...] Coronary atherosclerosis of unspecified type of vessel, resighini or graft EDEMA 782.3 Resolved Mitch Urbina [...] OLECRANON BURSITIS, RIGHT 726.33 Resolved Br kevin Urbina DO Olecranon bursitis UNSPECIFIED ANEMIA 285.9 Resolved Mitch Urbian DO Anemia, unspecified Malaise and fatigue 780.79 [...] DO Cough, chronic ICD-786.2 Inactive Mitch Arnol Urbina D O Sebaceous cyst, infected ICD-706.2 Inactive Mitch Urbina DO Cellulitis ICD-682.9 Inactive Mitch Urbina DO 10/23 Medication List Medication Instructions Start Date Stop Date Generic Name NDC Status Provider Patient Instruction KEFLEX 500 MG CAP 1 po qid CEPHALEXIN [id number] Act juan Mitch Ambrose Carlitos VELASQUEZ Active LOSARTAN POTASSIUM 100 MG TABS 1 pill by mouth daily, for bl ood pressure LOSARTAN POTASSIUM 93543270500 Active Ana Wallace Active AMLODIPINE BESYLATE 5 MG TABS 1 tablet by mouth daily AMLODIPINE BESYLATE 48596559831 No Longer Active Joe Davisdonaldo VALENCIA Active MITIGARE 0.6 MG ORAL CAPS 2 capsules at onset of gout pain, then take one capsule at 1 hour if symptoms persist. COLCHICINE 59 243013379 Active Mitch Urbina DO Active COUMADIN 1 MG TAB 2 tabs orally daily with the 5mg tab to equal 7mg daily WARFARIN SODIUM 81654549731 Active Mitch Urbina DO Active COLCRYS 0.6 MG TABS 1 tab qid prn gout COLCHICINE 23798771741 Active Norma Cazares Active INVOKANA 100 MG ORAL TABS 1 tablet orally daily CANAGLIFLOZIN 63955030840 Active Mitch Urbina DO Active MINOXIDIL 2.5 MG TABS 1 tablet daily for high blood pressure 10/23 MINOXIDIL 69771098464 Active Mitch Urbina DO Active MECLIZINE HCL 25 MG TAB 1 po tid 3 days, then 1/2 tab tid 3 days MECLIZINE HCL 22790745426 No Longer Active Corey SEGURA Active ALLOPURINOL 300 MG TABS Take 1 tablet by mouth daily 2 ALLOPURINOL 86177980018 No Longer Active Corey SEGURA Activ e CLONIDINE HCL 0.1 MG TABS 1 po bid 7 days, then 1/2 tab po b id 7 days CLONIDINE HCL 48763758440 No Longer Active Corey SEGURA Active COUMADIN 5 MG TABS 1 tab PO daily WARFARIN SODIUM 70875895899 Active Mitch Urbina DO Active COUMADIN 4 MG TABS 1 tablet daily WARFARIN SODI UM 06645952099 No Longer Active Corey SEGURA Active POLYTRIM 16377-8.1 UNIT/ML-% SOLN 1 drop in affected e ye every 3 hours while awake x 7 days POLYMYXIN B-TRIMETHOPRIM 20908475184 N o Longer Active Corey SEGURA Active LOSARTAN POTASSIUM-HCTZ 100-12.5 MG TABS 1 by mouth da rocky for high blood pressure LOSARTAN POTASSIUM-HCTZ 23418247752 No Longer A ctive Mitch Urbina DO Active LISINOPRIL-HYDROCHLOROTHIAZIDE 20-12.5 MG TABS 1 tab by mouth da rocky LISINOPRIL-HYDROCHLOROTHIAZIDE 83154621889 No Longer Active Mitch Castellano janelle DO Active LISINOPRIL 20 MG TABS 1 tab po at HS LISINOPRIL 63717706166 No Longer Active Mitch Urbina DO Active COUMADIN 5 MG TABS 1 by mouth every other day WARFARIN SODIUM 38797476070 No Longer Active Mitch Urbina DO Active COUMADIN 6 MG TABS 1 by mouth every other day WARFARIN SODIUM 07639181268 No Longer Active Mitch Urbina DO Active SIMVASTATIN 40 MG TABS 1 tab daily at bedtime S IMVASTATIN 00776371711 Active Mitch Urbina DO Active SIMVASTATIN 20 MG TABS 1 tab daily at bedtime S IMVASTATIN 81885437502 No Longer Active Mitch Urbina DO Active LOVENOX 100 MG/ML SC SOLN One injection twice a day 09/15/15 ENOXAPARIN SODIUM 67487714661 No Longer Active Carmine Yusuf MD A ctive JANUVIA 50 MG TABS Take one by mouth daily DIEGO GLIPTIN PHOSPHATE 35621949019 Active Mitch Urbina DO Active JANUVIA 100 MG TABS 1/2 by mouth every day DIEGO GLIPTIN PHOSPHATE 22572159163 No Longer Active Bijal Segal RN Active METFORMIN HCL 500 MG TABS 2 by mouth twice daily METFORMIN HCL 76139777807 Active Mitch Urbina DO Active GLIMEPIRIDE 4 MG TABS 1 tab po bid GLIMEPIRIDE 668778 75716 Active Mitch Urbina DO Active COLCRYS 0.6 MG TABS 1 po q 6 hours prn gout pain 03/02 COLCHICINE 80726078642 No Longer Active Camila Reese Active LISINOPRIL 5 MG TABS 1 by mouth every day LISIN OPRIL 73780489567 No Longer Active Nguyen Perez Active KLOR-CON 20 MEQ PACK Take one by mouth daily 8 POTASSIUM CHLORIDE 96202399041 No Longer Active Nguyen Perez Active FUROSEMIDE 40 MG TABS 1 by mouth daily FUROSEMI DE 78381749669 No Longer Active Nguyenmolly Perez Active PROVIGIL 200 MG TABS 1/2 tab po q day MODAFINIL 56626 923776 Active Mitch Urbina DO Active PROVIGIL 100 MG TABS Take one by mouth daily MO DAFINIL 89440348462 No Longer Active Mitch Urbina DO Active BACTRIM DS 800-160 MG TAB 1 tab by mouth twice daily 2 TRIMETHOPRIM-SULFAMETHOXAZOLE 83919677183 No Longer Active Renan Hays MD Active FAMOTIDINE 20 MG TABS by mouth twice a day FAMOTI DINE 05781136405 Active Mitch Urbina DO Active ADULT ASPIRIN LOW STRENGTH 81 MG TBDP 1 by mouth every daily ASPIRIN 40966550665 Active Mitch Urbina DO Active METOPROLOL TARTRATE 50 MG TABS 1 by mouth twice daily METOPROLOL TARTRATE 17339051870 Active Mitch Urbina DO Active BACTRIM DS 800-160 MG TAB 1 tab by mouth twice daily 2 BACTRIM DS 800-160 MG TAB 638705 TRIMETHOPRIM-SULFAMETHOXAZOLE Inac tive PROVIGIL 100 MG TABS Take one by mouth daily 4 PROVIGIL 100 MG TABS 634679 MODAFINIL Inactive FUROSEMIDE 40 MG TABS 1 by mouth daily FU ROSEMIDE 40 MG TABS 298900 FUROSEMIDE Inactive KLOR-CON 20 MEQ PACK Take one by mouth daily 8 KLOR-CON 20 MEQ PACK POTASSIUM CHLORIDE Inactive LISINOPRIL 5 MG TABS 1 by mouth every day LISINOPRIL 5 MG TABS 542136 LISINOPRIL Inactive COLCRYS 0.6 MG TABS 1 po q 6 hours prn gout pain 03/02 COLCRYS 0.6 MG TABS 264985 COLCHICINE Inactive JANUVIA 100 MG TABS 1/2 by mouth every day JANUVI A 100 MG TABS SITAGLIPTIN PHOSPHATE Inactive SIMVASTATIN 20 MG TABS 1 tab daily at bedtime SIMVASTATIN 20 MG TABS 926559 SIMVASTATIN Inactive COUMADIN 6 MG TABS 1 by mouth every other day COUMADIN 6 MG TABS 691922 WARFARIN SODIUM Inactive COUMADIN 5 MG TABS 1 by mouth every other day COUMADIN 5 MG TABS 381475 WARFARIN SODIUM Inactive LISINOPRIL 20 MG TABS 1 tab po at HS KOKI NOPRIL 20 MG TABS 568597 LISINOPRIL Inactive LISINOPRIL-HYDROCHLOROTHIAZIDE 20-12.5 MG TABS 1 tab by mouth da rocky LISINOPRIL-HYDROCHLOROTHIAZIDE 20-12.5 MG TABS 522243 LISINOPRIL-HYDROCHLOROTHIAZIDE Inactive POLYTRIM 52248-4.1 UNIT/ML-% SOLN 1 drop in affected e ye every 3 hours while awake x 7 days POLYTRIM 73795-1.1 UNIT/ML-% SOLN 16549 7 POLYMYXIN B-TRIMETHOPRIM Inactive COUMADIN 4 MG TABS 1 tablet daily COUMADIN 4 MG TABS 070334 WARFARIN SODIUM Inactive CLONIDINE HCL 0.1 MG TABS 1 po bid 7 days, then 1/2 tab po b id 7 days CLONIDINE HCL 0.1 MG TABS 082395 CLONIDINE HCL I nactive ALLOPURINOL 300 MG TABS Take 1 tablet by mouth daily 2 ALLOPURINOL 300 MG TABS 846088 ALLOPURINOL Inactive MECLIZINE HCL 25 MG TAB 1 po tid 3 days, then 1/2 tab tid 3 days MECLIZINE HCL 25 MG TAB 703333 MECLIZINE HCL Inactive AMLODIPINE BESYLATE 5 MG TABS 1 tablet by mouth daily AMLODIPINE BESYLATE 5 MG TABS 792031 AMLODIPINE BESYLATE Inactive LOVENOX 100 MG/ML SC SOLN One injection twice a day 09/15/15 LOVENOX 100 MG/ML SC SOLN 593246 ENOXAPARIN SODIUM Inactive Vital Signs Date Name [...] Range Description Chart Maintenance: hemoccult added to jemma robison - Chemistry occult blood, stool (E&M) Positive Lab Report: Basic Metabolic Panel - Chem istry sodium, serum 139 mmol/L 268-373 3849/07/17 urea nitrogen, blood 29 mg/dL 7-18 creatinine, serum 1.24 mg/dL 0.60-1.30 sodium, serum 141 mmol/L 365-045 7976/08/07 potassium, serum 4.5 mmol/L 3.5-5.2 chloride, serum [...] leukocyte count, blood 8.7 10^3/MM^3 10*3/mm3 4.6-10.2 hemoglobin, blood 14.6 g/dL 14.0-18.0 hematocrit, blood 43.9 % 40.0-54.0 mean corpuscular volume, RBC 86 fL 80-97 mean corpuscular hemoglobin, RBC 28.6 pg 27. 0-31.2 mean corpuscular hemoglobin concentration, RBC 33.2 G/DL % 31.8-35.4 red blood cell distribution width 14.9 % 11 .6-14.8 platelet count 216 10^3/MM^3 10*3/mm3 686-363 6170/06/12 erythrocyte (RBC) count 5.10 10^6/MM^3 10*6/mm3 4.50-6.5 0 Lab Report: CBC, MICROALB/CREAT W/RATIO - Lab microalbumin, urine 10 mg/L 0-19 Lab Report: Comp. Metabolic Panel, Thyro id Stimulating Hormone (L), Pros ... - Chemistry sodium, serum 144 mmol/L 495-692 7519/06/12 creatinine, serum 1.32 mg/dL 0.55-1.30 alanine aminotransferase [...] 17.8 SECS s 11.1-13.4 prothrombin time (patient) 21.3 SECS s 11.1-13.4 international normalized ratio (INR) 2.7 1.0-3.5 Encounters Code Encounter Date Provider Facility CPT-69846 Level 3 Est. Patient 19:43:34 CDT Mitch luis [facility] CPT-15843 Level 4 Est. Patient 09:30:18 CDT Mitch luis [facility] CPT-20661 Level 3 Est. Patient 15:10:14 CDT Joe kamara [facility] CPT-24138 Level 3 Est. Patient 15:03:46 CDT Joe kamara [facility] CPT-43187 Level 3 Est. Patient 14:21:06 CDT Mitch luis [facility] CPT-78218 Level 3 Est. Patient 14:52:06 CDT Joe kamara [facility] CPT-54108 Level 3 Est. Patient 09:34:30 MILL DRESSER Mitch luis [facility] CPT-42576 Level 3 Est. Patient 09:37:15 CDT Mitch luis [facility] CPT-86728 Level 3 Est. Patient 17:01:00 MILL DRESSER Mitch luis [facility] CPT-66608 Level 3 Est. Patient 13:53:19 MILL DRESSER Mitch luis [facility] CPT-55073 Level 3 Est. Patient 19:19:37 MILL DRESSER Mitch luis [facility] CPT-73199 Level 3 Est. Patient 13:25:53 MILL DRESSER Tavo toure MD [facility] CPT-24094 Level 3 Est. Patient 18:17:28 CDT Mitch luis [facility] CPT-01714 Level 3 Est. Patient 15:22:57 CDT Mitch W L janelle [facility] CPT-08944 Level 3 Est. Patient 18:21:50 CDT Mitch W L janelle [facility] CPT-22565 Level 3 Est. Patient 18:20:38 CDT Mitch W L janelle [facility] CPT-83503 Level 3 Est. Patient 15:37:55 CDT Mitch W L janelle [facility] CPT-44862 Level 2 Est. Patient 15:54:44 CDT Carmine benton MD [facility] CPT-40100 Level 3 Est. Patient 21:46:01 MILL DRESSER Mitch luis [facility] CPT-97141 Level 3 Est. Patient 22:15:50 CDT Mitch W L janelle [facility] CPT-95006 Level 3 Est. Patient 10:48:15 CDT Mitch W Nona luis [facility] CPT-37425 Level 3 Est. Patient 23:20:57 CDT Tavo toure MD [facility] CPT-85105 Level 3 Est. Patient 16:26:13 CDT Mitch Ambrose L janelle [facility] Procedures Code Procedure Name Date Entry Date Standard Desc ription CPT-80149 Venipuncture Draw Fee 09:26:17 CDT CPT-35876 PT/INR - LAB USE ONLY 13:32:49 MILL DRESSER CPT-32565 Venipuncture Draw Fee 13:32:49 MILL DRESSER CPT-50824 PT/INR - LAB USE ONLY 10:34:49 MILL DRESSER CPT-65824 Venipuncture Draw Fee 10:34:48 MILL DRESSER CPT-19747 PT/INR - LAB USE ONLY 09:22:03 MILL DRESSER CPT-79915 Venipuncture Draw Fee 09:22:02 MILL DRESSER CPT-67120 Hemoccult IFOBT - LAB USE ONLY 10:27:22 CDT CPT-92857 Venipuncture Draw Fee 08:27:08 CDT CPT-67008 Liver Profile - LAB USE ONLY 08:27:07 CDT 2 CPT-31179 Microalbumin - LAB USE ONLY 08:27:07 CDT 20 25/05/09 CPT-92110 PT/INR - LAB USE ONLY 08:27:07 CDT CPT-11114 HGBA1C - LAB USE ONLY 08:27:07 CDT CPT-08665 CBC - LAB USE ONLY 08:27:07 CDT CPT-58865 Venipuncture Draw Fee 11:09:14 CDT CPT-74118 Venipuncture Draw Fee 08:32:21 MILL DRESSER CPT-15092 Venipuncture Draw Fee 09:38:56 MILL DRESSER CPT-03609 No Charge Offi Visit 21:36:07 CDT 1 CPT-55833 Venipuncture Draw Fee 10:13:28 MILL DRESSER CPT-33581 Venipuncture Draw Fee 08:31:11 CDT CPT-88783 Aspir/Inject Med Joint 18:17:28 CDT CPT-56836 Venipuncture Draw Fee 10:13:30 CDT CPT-85602 Venipuncture Draw Fee 08:31:43 MILL DRESSER CPT-JTINJ Joint Injection 18:34:50 CDT CPT-50577 Knee 3V 12:25:09 CDT CPT-71370 Venipuncture Draw Fee 12:15:57 CDT CPT-060 Medical Surveillance Exam 21:31:43 CDT 2011 CPT-78108 Venipuncture Draw Fee 08:32:05 MILL DRESSER CPT-OV Office Visit 18:19:06 CDT
--- OUTSIDE RECORDS SUMMARY | 2020-01-18 12:25 | XMS REPORT | Clinical Summary ---
Author Author Admin, Mitch Leon Organization [facility] Address Unknown Phone Unavailable Allergies, Adverse Reactions, [...] Coronary atherosclerosis of unspecified type of vessel, [place] or graft EDEMA 782.3 Resolved Mitch Urbina [...] tab to equal 7mg daily WARFARIN SODIUM 92351587285 Active Mitch Urbina DO Active COLCRYS 0.6 MG TABS 1 tab qid prn gout COLCHICINE 29369274338 Active Kathie Juan RPT,RMA Active INVOKANA 100 MG ORAL TABS 1 tablet orally daily CANAGLIFLOZIN 03528060772 Active Mitch Urbina DO Active MINOXIDIL 2.5 MG TABS 1 tablet daily for high blood pressure 10/23 MINOXIDIL 85918840190 Active Mitch Urbina DO Active AMLODIPINE BESYLATE 5 MG TABS 1 tablet by mouth daily AMLODIPINE BESYLATE 16727960555 Active Mitch Urbina DO Active MECLIZINE HCL 25 MG TAB 1 po tid 3 days, then 1/2 tab tid 3 days MECLIZINE HCL 36605883440 No Longer Active Corey SEGURA Active ALLOPURINOL 300 MG TABS Take 1 tablet by mouth daily 2 ALLOPURINOL 26079970897 No Longer Active Corey SEGURA Activ e CLONIDINE HCL 0.1 MG TABS 1 po bid 7 days, then 1/2 tab po b id 7 days CLONIDINE HCL 16938068641 No Longer Active Corey SEGURA Active COUMADIN 5 MG TABS 1 tab PO daily WARFARIN SODIUM 16890862968 Active Mitch Urbina DO Active COUMADIN 4 MG TABS 1 tablet daily WARFARIN SODI UM 17162738245 No Longer Active Corey SEGURA Active POLYTRIM 65259-8.1 UNIT/ML-% SOLN 1 drop in affected e ye every 3 hours while awake x 7 days POLYMYXIN B-TRIMETHOPRIM 55242883676 N o Longer Active Corey SEGURA Active LOSARTAN POTASSIUM-HCTZ 100-12.5 MG TABS 1 by mouth da rocky for high blood pressure LOSARTAN POTASSIUM-HCTZ 23410460328 Active Stephy Urbina DO Active LISINOPRIL-HYDROCHLOROTHIAZIDE 20-12.5 MG TABS 1 tab by mouth da rocky LISINOPRIL-HYDROCHLOROTHIAZIDE 37149074631 No Longer Active Mitch luis DO Active LISINOPRIL 20 MG TABS 1 tab po at HS LISINOPRIL 13743347767 No Longer Active Mitch Urbina DO Active COUMADIN 5 MG TABS 1 by mouth every other day WARFARIN SODIUM 78890167829 No Longer Active Mitch Urbina DO Active COUMADIN 6 MG TABS 1 by mouth every other day WARFARIN SODIUM 87074397882 No Longer Active Mitch Urbina DO Active SIMVASTATIN 40 MG TABS 1 tab daily at bedtime S IMVASTATIN 04403548915 Active Mitch W Carlitos DO Active SIMVASTATIN 20 MG TABS 1 tab daily at bedtime S IMVASTATIN 30336689522 No Longer Active Mitch Urbina DO Active LOVENOX 100 MG/ML SC SOLN One injection twice a day 09/15/15 ENOXAPARIN SODIUM 80458160051 No Longer Active Carmine Navarrete ctive JANUVIA 50 MG TABS Take one by mouth daily DIEGO GLIPTIN PHOSPHATE 90082850174 Active Mitch Urbina DO Active JANUVIA 100 MG TABS 1/2 by mouth every day DIEGO GLIPTIN PHOSPHATE 66003581856 No Longer Active Bijal Segal RN Active METFORMIN HCL 500 MG TABS 2 by mouth twice daily METFORMIN HCL 14551935303 Active Mitch Urbina DO Active GLIMEPIRIDE 4 MG TABS 1 tab po bid GLIMEPIRIDE 194059 01813 Active Mitch Urbina DO Active COLCRYS 0.6 MG TABS 1 po q 6 hours prn gout pain 03/02 COLCHICINE 84728852203 No Longer Active Camilamargarita Reese Active LISINOPRIL 5 MG TABS 1 by mouth every day LISIN OPRIL 91678120113 No Longer Active Nguyenmolly Perez Active KLOR-CON 20 MEQ PACK Take one by mouth daily 8 POTASSIUM CHLORIDE 28551969365 No Longer Active Nguyenmolly Perez Active FUROSEMIDE 40 MG TABS 1 by mouth daily FUROSEMI DE 16081001764 No Longer Active Nguyen Perez Active PROVIGIL 200 MG TABS 1/2 tab po q day MODAFINIL 84751 069225 Active Mitch Urbina DO Active PROVIGIL 100 MG TABS Take one by mouth daily MO DAFINIL 17359089332 No Longer Active Mitch Urbina DO Active BACTRIM DS 800-160 MG TAB 1 tab by mouth twice daily 2 TRIMETHOPRIM-SULFAMETHOXAZOLE 70932103704 No Longer Active Renan Hays MD Active FAMOTIDINE 20 MG TABS by mouth twice a day FAMOTI DINSierra 22984599600 Active Mitch Arnol Carlitos DO Active ADULT ASPIRIN LOW STRENGTH 81 MG TBDP 1 by mouth every daily ASPIRIN 57948239812 Active Mitch Urbina DO Active METOPROLOL TARTRATE 50 MG TABS 1 by mouth twice daily METOPROLOL TARTRATE 90039527061 Active Mitch Arnol Carlitos DO Active BACTRIM DS 800-160 MG TAB 1 tab by mouth twice daily 2 BACTRIM DS 800-160 MG TAB 928835 TRIMETHOPRIM-SULFAMETHOXAZOLE Inac tive PROVIGIL 100 MG TABS Take one by mouth daily 4 PROVIGIL 100 MG TABS 335295 MODAFINIL Inactive FUROSEMIDE 40 MG TABS 1 by mouth daily FU ROSEMIDE 40 MG TABS 913444 FUROSEMIDE Inactive KLOR-CON 20 MEQ PACK Take one by mouth daily 8 KLOR-CON 20 MEQ PACK 053175 POTASSIUM CHLORIDE Inactive LISINOPRIL 5 MG TABS 1 by mouth every day LISINOPRIL 5 MG TABS 160445 LISINOPRIL Inactive COLCRYS 0.6 MG TABS 1 po q 6 hours prn gout pain 03/02 COLCRYS 0.6 MG TABS 454323 COLCHICINE Inactive JANUVIA 100 MG TABS 1/2 by mouth every day JANUVI A 100 MG TABS SITAGLIPTIN PHOSPHATE Inactive SIMVASTATIN 20 MG TABS 1 tab daily at bedtime SIMVASTATIN 20 MG TABS 353740 SIMVASTATIN Inactive COUMADIN 6 MG TABS 1 by mouth every other day COUMADIN 6 MG TABS 616596 WARFARIN SODIUM Inactive COUMADIN 5 MG TABS 1 by mouth every other day COUMADIN 5 MG TABS 837602 WARFARIN SODIUM Inactive LISINOPRIL 20 MG TABS 1 tab po at HS KOKI NOPRIL 20 MG TABS 385824 LISINOPRIL Inactive LISINOPRIL-HYDROCHLOROTHIAZIDE 20-12.5 MG TABS 1 tab by mouth da rocky LISINOPRIL-HYDROCHLOROTHIAZIDE 20-12.5 MG TABS 349179 LISINOPRIL-HYDROCHLOROTHIAZIDE Inactive POLYTRIM 71424-2.1 UNIT/ML-% SOLN 1 drop in affected e ye every 3 hours while awake x 7 days POLYTRIM 64298-7.1 UNIT/ML-% SOLN 45513 7 POLYMYXIN B-TRIMETHOPRIM Inactive COUMADIN 4 MG TABS 1 tablet daily COUMADIN 4 MG TABS 459199 WARFARIN SODIUM Inactive CLONIDINE HCL 0.1 MG TABS 1 po bid 7 days, then 1/2 tab po b id 7 days CLONIDINE HCL 0.1 MG TABS 622593 CLONIDINE HCL I nactive ALLOPURINOL 300 MG TABS Take 1 tablet by mouth daily 2 ALLOPURINOL 300 MG TABS 268658 ALLOPURINOL Inactive MECLIZINE HCL 25 MG TAB 1 po tid 3 days, then 1/2 tab tid 3 days MECLIZINE HCL 25 MG TAB 893403 MECLIZINE HCL Inactive LOVENOX 100 MG/ML SC SOLN One injection twice a day 20 09/15/15 LOVENOX 100 MG/ML SC SOLN 646052 ENOXAPARIN SODIUM Inactive Vital Signs Date Name [...] Lab Report: CBC - Hematology mean corpuscular hemoglobin concentration, RBC 32.6 G/DL % 31.8-35.4 red blood cell distribution width 18.0 % 11 .6-14.8 platelet count 276 10^3/MM^3 10*3/mm3 847-185 4089/01/14 leukocyte count, blood 7.1 10^3/MM^3 10*3/mm3 4.6-10.2 mean corpuscular hemoglobin, RBC 26.6 pg 27. 0-31.2 erythrocyte (RBC) count 4.57 10^6/MM^3 10*6/mm3 4.69-6.1 3 mean corpuscular volume, RBC 82 fL 80-97 hematocrit, blood 37.3 % 41.0-53.0 hemoglobin, blood 12.2 g/dL 13.5-17.5 Lab Report: Comp. Metabolic Panel - Chem istry sodium, serum 136 mmol/L 218-899 6346/01/14 carbon dioxide, venous blood 25.4 mmol/L 21.0-32 [...] CBC - Chemistry cholesterol, serum 136 mg/dL 450-370 7572/08/09 triglyceride, serum, fasting 187 mg/dL 30-200 HDL [...] ratio (INR) 2.4 1.0-3.5 prothrombin time (patient) 16.2 SECS s 11.1-13.4 international normalized ratio (INR) 1.8 1.0-3.5 prothrombin time (patient) 15.8 SECS s 11.1-13.4 international normalized ratio (INR) 1.8 1.0-3.5 prothrombin time (patient) 15.4 SECS s 11.1-13.4 international normalized ratio (INR) 1.5 1.0-3.5 international normalized ratio (INR) 2.4 1.0-3.5 prothrombin time (patient) 18.9 SECS s 11.1-13.4 prothrombin time (patient) 16.9 SECS s 11.1-13.4 international normalized ratio (INR) 2.0 1.0-3.5 international normalized ratio (INR) 2.0 1.0-3.5 prothrombin time (patient) 17.1 SECS s 11.1-13.4 prothrombin time (patient) 14.5 SECS s 11.1-13.4 international normalized ratio (INR) 1.5 1.0-3.5 Encounters Code Encounter Date Provider Facility CPT-28161 Level 3 Est. Patient 09:34:30 BUSINESS MACHINE OPERATOR Mitch luis DO [facility] CPT-26574 Level 3 Est. Patient 09:37:15 CDT Mitch luis DO [facility] CPT-40563 Level 3 Est. Patient 17:01:00 BUSINESS MACHINE OPERATOR Mitch luis DO [facility] CPT-87442 Level 3 Est. Patient 13:53:19 BUSINESS MACHINE OPERATOR Mitch luis [facility] CPT-66096 Level 3 Est. Patient 19:19:37 BUSINESS MACHINE OPERATOR Mitch luis [facility] CPT-91991 Level 3 Est. Patient 13:25:53 BUSINESS MACHINE OPERATOR Tavo toure MD [facility] CPT-51730 Level 3 Est. Patient 18:17:28 CDT Mitch luis [facility] CPT-54702 Level 3 Est. Patient 15:22:57 CDT Mitch luis [facility] CPT-80668 Level 3 Est. Patient 18:21:50 CDT Mitch luis [facility] CPT-19492 Level 3 Est. Patient 18:20:38 CDT Mitch luis [facility] CPT-68125 Level 3 Est. Patient 15:37:55 CDT Mitch luis [facility] CPT-74258 Level 2 Est. Patient 15:54:44 CDT Carmine benton MD [facility] CPT-92073 Level 3 Est. Patient 21:46:01 BUSINESS MACHINE OPERATOR Mitch luis [facility] CPT-64605 Level 3 Est. Patient 22:15:50 CDT Mitch luis [facility] CPT-35545 Level 3 Est. Patient 10:48:15 CDT Mitch luis [facility] CPT-84338 Level 3 Est. Patient 23:20:57 CDT Tavo toure MD [facility] CPT-04971 Level 3 Est. Patient 16:26:13 CDT Mitch luis [facility] Procedures Code Procedure Name Date Entry Date Standard Desc ription CPT-48959 Hemoccult IFOBT - LAB USE ONLY 10:27:22 CDT CPT-69428 Venipuncture Draw Fee 08:27:08 CDT CPT-90892 Liver Profile - LAB USE ONLY 08:27:07 CDT 2 CPT-27816 Microalbumin - LAB USE ONLY 08:27:07 CDT 20 25/05/09 CPT-23464 PT/INR - LAB USE ONLY 08:27:07 CDT CPT-56540 HGBA1C - LAB USE ONLY 08:27:07 CDT CPT-08288 CBC - LAB USE ONLY 08:27:07 CDT CPT-94468 Venipuncture Draw Fee 11:09:14 CDT CPT-69620 Venipuncture Draw Fee 08:32:21 BUSINESS MACHINE OPERATOR CPT-53042 Venipuncture Draw Fee 09:38:56 BUSINESS MACHINE OPERATOR CPT-64164 No Charge Offi Visit 21:36:07 CDT 1 CPT-40104 Venipuncture Draw Fee 10:13:28 BUSINESS MACHINE OPERATOR CPT-65842 Venipuncture Draw Fee 08:31:11 CDT CPT-51589 Aspir/Inject Med Joint 18:17:28 CDT CPT-22209 Venipuncture Draw Fee 10:13:30 CDT CPT-54244 Venipuncture Draw Fee 08:31:43 BUSINESS MACHINE OPERATOR CPT-JTINJ Joint Injection 18:34:50 CDT CPT-22614 Knee 3V 12:25:09 CDT CPT-84854 Venipuncture Draw Fee 12:15:57 CDT CPT-060 Medical Surveillance Exam 21:31:43 CDT 2011 CPT-61313 Venipuncture Draw Fee 08:32:05 BUSINESS MACHINE OPERATOR CPT-OV Office Visit 18:19:06 CDT
--- OUTSIDE RECORDS SUMMARY | 2020-01-18 12:25 | XMS REPORT | Clinical Summary ---
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 Inactive Mitch Arnol Urbina [...] tab to equal 7mg daily WARFARIN SODIUM 34751864458 Active Kathie Juan RPT,R MA Active COLCRYS 0.6 MG TABS 1 tab qid prn gout COLCHICINE 27971430875 Active Kathie Juan RPT,RMA Active INVOKANA 100 MG ORAL TABS 1 tablet orally daily CANAGLIFLOZIN 60335339855 Active Kathie Juan RPT,RMA Active MINOXIDIL 2.5 MG TABS 1 tablet daily for high blood pressure 10/23 MINOXIDIL 55779016516 Active Mitch Arnol Carlitos DO Active AMLODIPINE BESYLATE 5 MG TABS 1 tablet by mouth daily AMLODIPINE BESYLATE 29436338247 Active Domi Rivera MA Active MECLIZINE HCL 25 MG TAB 1 po tid 3 days, then 1/2 tab tid 3 days MECLIZINE HCL 71075289364 No Longer Active Corey SEGURA Active ALLOPURINOL 300 MG TABS Take 1 tablet by mouth daily 2 ALLOPURINOL 47476895891 No Longer Active Corey SEGURA Activ e CLONIDINE HCL 0.1 MG TABS 1 po bid 7 days, then 1/2 tab po b id 7 days CLONIDINE HCL 13691727557 No Longer Active Corey SEGURA Active COUMADIN 5 MG TABS 1 tab PO daily WARFARIN SODIUM 58184359710 Active Domi Rivera MA Active COUMADIN 4 MG TABS 1 tablet daily WARFARIN SODI UM 98145067742 No Longer Active Corey SEGURA Active POLYTRIM 45818-8.1 UNIT/ML-% SOLN 1 drop in affected e ye every 3 hours while awake x 7 days POLYMYXIN B-TRIMETHOPRIM 91959832508 N o Longer Active Corey SEGURA Active LOSARTAN POTASSIUM-HCTZ 100-12.5 MG TABS 1 by mouth da rocky for high blood pressure LOSARTAN POTASSIUM-HCTZ 78381393178 Active Domi Rivera MA Active LISINOPRIL-HYDROCHLOROTHIAZIDE 20-12.5 MG TABS 1 tab by mouth da rocky LISINOPRIL-HYDROCHLOROTHIAZIDE 07436476862 No Longer Active Mitch luis DO Active LISINOPRIL 20 MG TABS 1 tab po at HS LISINOPRIL 65043692885 No Longer Active Mitch Urbina DO Active COUMADIN 5 MG TABS 1 by mouth every other day WARFARIN SODIUM 69321381362 No Longer Active Mitch Urbina DO Active COUMADIN 6 MG TABS 1 by mouth every other day WARFARIN SODIUM 34589350664 No Longer Active Mitch Urbina DO Active SIMVASTATIN 40 MG TABS 1 tab daily at bedtime S IMVASTATIN 88489773592 Active Domi Rivera MA Active SIMVASTATIN 20 MG TABS 1 tab daily at bedtime S IMVASTATIN 17501369742 No Longer Active Mitch Urbina DO Active LOVENOX 100 MG/ML SC SOLN One injection twice a day 09/15/15 ENOXAPARIN SODIUM 94682129337 No Longer Active Carmine Navarrete ctive JANUVIA 50 MG TABS Take one by mouth daily DIEGO GLIPTIN PHOSPHATE 52016452965 Active Domi Rivera MA Active JANUVIA 100 MG TABS 1/2 by mouth every day DIEGO GLIPTIN PHOSPHATE 05473766080 No Longer Active Bijal Segal RN Active METFORMIN HCL 500 MG TABS 2 by mouth twice daily METFORMIN HCL 20816565139 Active Mitch Urbina DO Active GLIMEPIRIDE 4 MG TABS 1 tab po bid GLIMEPIRIDE 529280 08122 Active Mitch Urbina DO Active COLCRYS 0.6 MG TABS 1 po q 6 hours prn gout pain 03/02 COLCHICINE 21698987182 No Longer Active Camila Reese Active LISINOPRIL 5 MG TABS 1 by mouth every day LISIN OPRIL 34800315327 No Longer Active Nguyen Perez Active KLOR-CON 20 MEQ PACK Take one by mouth daily 8 POTASSIUM CHLORIDE 36548508335 No Longer Active Nguyenmolly Perez Active FUROSEMIDE 40 MG TABS 1 by mouth daily FUROSEMI DE 70571278212 No Longer Active Nguyenmolly Perez Active PROVIGIL 200 MG TABS 1/2 tab po q day MODAFINIL 33808 429523 Active Domi Rivera MA Active PROVIGIL 100 MG TABS Take one by mouth daily MO DAFINIL 54672166884 No Longer Active Mitch Urbina DO Active BACTRIM DS 800-160 MG TAB 1 tab by mouth twice daily 2 TRIMETHOPRIM-SULFAMETHOXAZOLE 17710623557 No Longer Active Renan Hays MD Active FAMOTIDINE 20 MG TABS by mouth twice a day FAMOTI DINE 17377775982 Active Mitch Urbina DO Active ADULT ASPIRIN LOW STRENGTH 81 MG TBDP 1 by mouth every daily ASPIRIN 26656502868 Active Mitch Urbina DO Active METOPROLOL TARTRATE 50 MG TABS 1 by mouth twice daily METOPROLOL TARTRATE 01697630008 Active Domi Rivera MA Active BACTRIM DS 800-160 MG TAB 1 tab by mouth twice daily 2 BACTRIM DS 800-160 MG TAB 947722 TRIMETHOPRIM-SULFAMETHOXAZOLE Inac tive PROVIGIL 100 MG TABS Take one by mouth daily 4 PROVIGIL 100 MG TABS 901150 MODAFINIL Inactive FUROSEMIDE 40 MG TABS 1 by mouth daily FU ROSEMIDE 40 MG TABS 851136 FUROSEMIDE Inactive KLOR-CON 20 MEQ PACK Take one by mouth daily 8 KLOR-CON 20 MEQ PACK 161787 POTASSIUM CHLORIDE Inactive LISINOPRIL 5 MG TABS 1 by mouth every day LISINOPRIL 5 MG TABS 692927 LISINOPRIL Inactive COLCRYS 0.6 MG TABS 1 po q 6 hours prn gout pain 03/02 COLCRYS 0.6 MG TABS 415025 COLCHICINE Inactive JANUVIA 100 MG TABS 1/2 by mouth every day JANUVI A 100 MG TABS SITAGLIPTIN PHOSPHATE Inactive SIMVASTATIN 20 MG TABS 1 tab daily at bedtime SIMVASTATIN 20 MG TABS 936016 SIMVASTATIN Inactive COUMADIN 6 MG TABS 1 by mouth every other day COUMADIN 6 MG TABS 502953 WARFARIN SODIUM Inactive COUMADIN 5 MG TABS 1 by mouth every other day COUMADIN 5 MG TABS 624604 WARFARIN SODIUM Inactive LISINOPRIL 20 MG TABS 1 tab po at HS KOKI NOPRIL 20 MG TABS 163530 LISINOPRIL Inactive LISINOPRIL-HYDROCHLOROTHIAZIDE 20-12.5 MG TABS 1 tab by mouth da rocky LISINOPRIL-HYDROCHLOROTHIAZIDE 20-12.5 MG TABS 455499 LISINOPRIL-HYDROCHLOROTHIAZIDE Inactive POLYTRIM 23445-8.1 UNIT/ML-% SOLN 1 drop in affected e ye every 3 hours while awake x 7 days POLYTRIM 18776-9.1 UNIT/ML-% SOLN 52318 7 POLYMYXIN B-TRIMETHOPRIM Inactive COUMADIN 4 MG TABS 1 tablet daily COUMADIN 4 MG TABS 876080 WARFARIN SODIUM Inactive CLONIDINE HCL 0.1 MG TABS 1 po bid 7 days, then 1/2 tab po b id 7 days CLONIDINE HCL 0.1 MG TABS 179405 CLONIDINE HCL I nactive ALLOPURINOL 300 MG TABS Take 1 tablet by mouth daily 2 ALLOPURINOL 300 MG TABS 594950 ALLOPURINOL Inactive MECLIZINE HCL 25 MG TAB 1 po tid 3 days, then 1/2 tab tid 3 days MECLIZINE HCL 25 MG TAB 714707 MECLIZINE HCL Inactive LOVENOX 100 MG/ML SC SOLN One injection twice a day 20 09/15/15 LOVENOX 100 MG/ML SC SOLN 249740 ENOXAPARIN SODIUM Inactive Vital Signs Date Name [...] - Chem istry sodium, serum 136 mmol/L 569-815 6200/01/14 carbon dioxide, venous blood 25.4 mmol/L 21.0-32 [...] 1.0-3.5 Encounters Code Encounter Date Provider Facility CPT-46992 Level 3 Est. Patient 09:34:30 ENVIRONMENTAL SPECIALIST Mitch luis [facility] CPT-72561 Level 3 Est. Patient 09:37:15 CDT Mitch luis [facility] CPT-51857 Level 3 Est. Patient 17:01:00 ENVIRONMENTAL SPECIALIST Mitch luis [facility] CPT-55715 Level 3 Est. Patient 13:53:19 ENVIRONMENTAL SPECIALIST Mitch luis [facility] CPT-96910 Level 3 Est. Patient 19:19:37 ENVIRONMENTAL SPECIALIST Mitch luis [facility] CPT-82911 Level 3 Est. Patient 13:25:53 ENVIRONMENTAL SPECIALIST Tavo toure MD [facility] CPT-56168 Level 3 Est. Patient 18:17:28 CDT Mitch luis [facility] CPT-72838 Level 3 Est. Patient 15:22:57 CDT Mitch luis [facility]-78661 Level 3 Est. Patient 18:21:50 CDT Mitch luis [facility] CPT-47209 Level 3 Est. Patient 18:20:38 CDT Mitch luis [facility] CPT-41929 Level 3 Est. Patient 15:37:55 CDT Mitch luis [facility] CPT-64899 Level 2 Est. Patient 15:54:44 CDT Carmine benton MD [facility]-15532 Level 3 Est. Patient 21:46:01 ENVIRONMENTAL SPECIALIST Mitch luis [facility] CPT-22543 Level 3 Est. Patient 22:15:50 CDT Mitch luis [facility] CPT-42510 Level 3 Est. Patient 10:48:15 CDT Mitch Arnol L janelle [facility] CPT-58528 Level 3 Est. Patient 23:20:57 CDT Tavo toure MD [facility] CPT-55205 Level 3 Est. Patient 16:26:13 CDT Mitch Castellano janelle [facility] Procedures Code Procedure Name Date Entry Date Standard Desc ription CPT-48184 Venipuncture Draw Fee 11:09:14 CDT CPT-46346 Venipuncture Draw Fee 08:32:21 ENVIRONMENTAL SPECIALIST CPT-43586 Venipuncture Draw Fee 09:38:56 ENVIRONMENTAL SPECIALIST CPT-45388 No Charge Offi Visit 21:36:07 CDT 1 CPT-82887 Venipuncture Draw Fee 10:13:28 ENVIRONMENTAL SPECIALIST CPT-19633 Venipuncture Draw Fee 08:31:11 CDT CPT-27430 Aspir/Inject Med Joint 18:17:28 CDT CPT-16104 Venipuncture Draw Fee 10:13:30 CDT CPT-01242 Venipuncture Draw Fee 08:31:43 ENVIRONMENTAL SPECIALIST CPT-JTINJ Joint Injection 18:34:50 CDT CPT-59152 Knee 3V 12:25:09 CDT CPT-68211 Venipuncture Draw Fee 12:15:57 CDT CPT-060 Medical Surveillance Exam 21:31:43 CDT 2011 CPT-79840 Venipuncture Draw Fee 08:32:05 ENVIRONMENTAL SPECIALIST CPT-OV Office Visit 18:19:06 CDT
--- OUTSIDE RECORDS SUMMARY | 2020-01-18 12:25 | XMS REPORT | Clinical Summary ---
Author Author Admin, Mitch Leon Organization [email or web address] Address Unknown Phone Unavailable Allergies, Adverse Reactions, [...] 500 MG CAP 1 po qid CEPHALEXIN 60519725932 Act juan Mitch Ambrose Carlitos VELASQUEZ Active LOSARTAN POTASSIUM 100 MG TABS 1 pill by mouth daily, for bl ood pressure LOSARTAN POTASSIUM 89418791148 Active Ana Wallace Active AMLODIPINE BESYLATE 5 MG TABS 1 tablet by mouth daily AMLODIPINE BESYLATE 34249286204 No Longer Active Joe Davisdonaldo VALENCIA Active MITIGARE 0.6 MG ORAL CAPS 2 capsules at onset of gout pain, then take one capsule at 1 hour if symptoms persist. COLCHICINE 59 454666641 Active Mitch Urbina DO Active COUMADIN 1 MG TAB 2 tabs orally daily with the 5mg tab to equal 7mg daily WARFARIN SODIUM 53592112304 Active Mitch Urbina DO Active COLCRYS 0.6 MG TABS 1 tab qid prn gout COLCHICINE 82660501981 Active Norma Cazares Active INVOKANA 100 MG ORAL TABS 1 tablet orally daily CANAGLIFLOZIN 21047826146 Active Mitch Urbina DO Active MINOXIDIL 2.5 MG TABS 1 tablet daily for high blood pressure 10/23 MINOXIDIL 35311285702 Active Mithc Urbina DO Active MECLIZINE HCL 25 MG TAB 1 po tid 3 days, then 1/2 tab tid 3 days MECLIZINE HCL 75594929726 No Longer Active Corey SEGURA Active ALLOPURINOL 300 MG TABS Take 1 tablet by mouth daily 2 ALLOPURINOL 26372665430 No Longer Active Corey SEGURA Activ e CLONIDINE HCL 0.1 MG TABS 1 po bid 7 days, then 1/2 tab po b id 7 days CLONIDINE HCL 94989689899 No Longer Active Corey SEGURA Active COUMADIN 5 MG TABS 1 tab PO daily WARFARIN SODIUM 97755096256 Active Mitch Urbina DO Active COUMADIN 4 MG TABS 1 tablet daily WARFARIN SODI UM 64672673000 No Longer Active Corey SEGURA Active POLYTRIM 63450-9.1 UNIT/ML-% SOLN 1 drop in affected e ye every 3 hours while awake x 7 days POLYMYXIN B-TRIMETHOPRIM 64935806192 N o Longer Active Corey SEGURA Active LOSARTAN POTASSIUM-HCTZ 100-12.5 MG TABS 1 by mouth da rocky for high blood pressure LOSARTAN POTASSIUM-HCTZ 89985555391 No Longer A ctive Mitch Urbina DO Active LISINOPRIL-HYDROCHLOROTHIAZIDE 20-12.5 MG TABS 1 tab by mouth da rocky LISINOPRIL-HYDROCHLOROTHIAZIDE 78812800501 No Longer Active Mitch Castellano janelle DO Active LISINOPRIL 20 MG TABS 1 tab po at HS LISINOPRIL 62829161589 No Longer Active Mitch Urbina DO Active COUMADIN 5 MG TABS 1 by mouth every other day WARFARIN SODIUM 11845453339 No Longer Active Mitch Urbina DO Active COUMADIN 6 MG TABS 1 by mouth every other day WARFARIN SODIUM 88129963329 No Longer Active Mitch Urbina DO Active SIMVASTATIN 40 MG TABS 1 tab daily at bedtime S IMVASTATIN 52671298742 Active Mitch Urbina DO Active SIMVASTATIN 20 MG TABS 1 tab daily at bedtime S IMVASTATIN 98050724889 No Longer Active Mitch Urbina DO Active LOVENOX 100 MG/ML SC SOLN One injection twice a day 09/15/15 ENOXAPARIN SODIUM 28294564929 No Longer Active Carmine Yusuf MD A ctive JANUVIA 50 MG TABS Take one by mouth daily DIEGO GLIPTIN PHOSPHATE 80016589389 Active Mitch Urbina DO Active JANUVIA 100 MG TABS 1/2 by mouth every day DIEGO GLIPTIN PHOSPHATE 01868953313 No Longer Active Bijal Segal RN Active METFORMIN HCL 500 MG TABS 2 by mouth twice daily METFORMIN HCL 60840070727 Active Mitch Urbina DO Active GLIMEPIRIDE 4 MG TABS 1 tab po bid GLIMEPIRIDE 156134 30575 Active Mitch Urbina DO Active COLCRYS 0.6 MG TABS 1 po q 6 hours prn gout pain 03/02 COLCHICINE 06689774987 No Longer Active Camila Reese Active LISINOPRIL 5 MG TABS 1 by mouth every day LISIN OPRIL 03525265735 No Longer Active Nguyen Perez Active KLOR-CON 20 MEQ PACK Take one by mouth daily 8 POTASSIUM CHLORIDE 88006360677 No Longer Active Nguyen Perez Active FUROSEMIDE 40 MG TABS 1 by mouth daily FUROSEMI DE 73250991278 No Longer Active Nguyenmolly Perez Active PROVIGIL 200 MG TABS 1/2 tab po q day MODAFINIL 49670 048495 Active Mitch Urbina DO Active PROVIGIL 100 MG TABS Take one by mouth daily MO DAFINIL 04671328387 No Longer Active Mitch Urbina DO Active BACTRIM DS 800-160 MG TAB 1 tab by mouth twice daily 2 TRIMETHOPRIM-SULFAMETHOXAZOLE 06915053942 No Longer Active Renan Hays MD Active FAMOTIDINE 20 MG TABS by mouth twice a day FAMOTI DINE 93297236123 Active Mitch Urbina DO Active ADULT ASPIRIN LOW STRENGTH 81 MG TBDP 1 by mouth every daily ASPIRIN 53650342212 Active Mitch Urbina DO Active METOPROLOL TARTRATE 50 MG TABS 1 by mouth twice daily METOPROLOL TARTRATE 63092478341 Active Mitch Urbina DO Active BACTRIM DS 800-160 MG TAB 1 tab by mouth twice daily 2 BACTRIM DS 800-160 MG TAB 588389 TRIMETHOPRIM-SULFAMETHOXAZOLE Inac tive PROVIGIL 100 MG TABS Take one by mouth daily 4 PROVIGIL 100 MG TABS 190833 MODAFINIL Inactive FUROSEMIDE 40 MG TABS 1 by mouth daily FU ROSEMIDE 40 MG TABS 107333 FUROSEMIDE Inactive KLOR-CON 20 MEQ PACK Take one by mouth daily 8 KLOR-CON 20 MEQ PACK POTASSIUM CHLORIDE Inactive LISINOPRIL 5 MG TABS 1 by mouth every day LISINOPRIL 5 MG TABS 061881 LISINOPRIL Inactive COLCRYS 0.6 MG TABS 1 po q 6 hours prn gout pain 03/02 COLCRYS 0.6 MG TABS 789557 COLCHICINE Inactive JANUVIA 100 MG TABS 1/2 by mouth every day JANUVI A 100 MG TABS SITAGLIPTIN PHOSPHATE Inactive SIMVASTATIN 20 MG TABS 1 tab daily at bedtime SIMVASTATIN 20 MG TABS 024517 SIMVASTATIN Inactive COUMADIN 6 MG TABS 1 by mouth every other day COUMADIN 6 MG TABS 374584 WARFARIN SODIUM Inactive COUMADIN 5 MG TABS 1 by mouth every other day COUMADIN 5 MG TABS 781205 WARFARIN SODIUM Inactive LISINOPRIL 20 MG TABS 1 tab po at HS KOKI NOPRIL 20 MG TABS 999559 LISINOPRIL Inactive LISINOPRIL-HYDROCHLOROTHIAZIDE 20-12.5 MG TABS 1 tab by mouth da rocky LISINOPRIL-HYDROCHLOROTHIAZIDE 20-12.5 MG TABS 475532 LISINOPRIL-HYDROCHLOROTHIAZIDE Inactive POLYTRIM 17679-3.1 UNIT/ML-% SOLN 1 drop in affected e ye every 3 hours while awake x 7 days POLYTRIM 37756-6.1 UNIT/ML-% SOLN 59227 7 POLYMYXIN B-TRIMETHOPRIM Inactive COUMADIN 4 MG TABS 1 tablet daily COUMADIN 4 MG TABS 478445 WARFARIN SODIUM Inactive CLONIDINE HCL 0.1 MG TABS 1 po bid 7 days, then 1/2 tab po b id 7 days CLONIDINE HCL 0.1 MG TABS 535591 CLONIDINE HCL I nactive ALLOPURINOL 300 MG TABS Take 1 tablet by mouth daily 2 ALLOPURINOL 300 MG TABS 690041 ALLOPURINOL Inactive MECLIZINE HCL 25 MG TAB 1 po tid 3 days, then 1/2 tab tid 3 days MECLIZINE HCL 25 MG TAB 795888 MECLIZINE HCL Inactive AMLODIPINE BESYLATE 5 MG TABS 1 tablet by mouth daily AMLODIPINE BESYLATE 5 MG TABS 003704 AMLODIPINE BESYLATE Inactive LOVENOX 100 MG/ML SC SOLN One injection twice a day 09/15/15 LOVENOX 100 MG/ML SC SOLN 844498 ENOXAPARIN SODIUM Inactive Vital Signs Date Name [...] - Chem istry sodium, serum 139 mmol/L 065-564 5812/07/17 potassium, serum 4.2 mmol/L 3.5-5.2 chloride, serum 102 mmol/L 98-107 carbon dioxide, venous blood 28.9 mmol/L 21.0-32 .0 blood glucose 211 mg/dL 65-110 calcium, serum 10.6 mg/dL 8.5-10.1 urea nitrogen, blood 29 mg/dL 7-18 creatinine, serum 1.24 mg/dL 0.60-1.30 sodium, serum 141 mmol/L 980-434 8657/08/07 potassium, serum 4.5 mmol/L 3.5-5.2 chloride, serum 102 mmol/L 98-107 carbon dioxide, venous blood 31.7 mmol/L 21.0-32 .0 blood glucose 117 mg/dL 65-110 calcium, serum 10.5 mg/dL 8.5-10.1 urea nitrogen, blood 26 mg/dL 7-18 creatinine, serum 1.15 mg/dL 0.60-1.30 Lab Report: CBC, MICROALB/CREAT W/RATIO - Chemistry albumin/creatinine ratio, urine <30 mg/g Normal mg/g m g/g{creat} 0-29 Lab Report: CBC, MICROALB/CREAT W/RATIO - Hematology hemoglobin, blood 14.6 g/dL 14.0-18.0 erythrocyte (RBC) count 5.10 10^6/MM^3 10*6/mm3 4.50-6.5 0 leukocyte count, blood 8.7 10^3/MM^3 10*3/mm3 4.6-10.2 mean corpuscular volume, RBC 86 fL 80-97 mean corpuscular hemoglobin, RBC 28.6 pg 27. 0-31.2 hematocrit, blood 43.9 % 40.0-54.0 mean corpuscular hemoglobin concentration, RBC 33.2 G/DL % 31.8-35.4 red blood cell distribution width 14.9 % 11 .6-14.8 platelet count 216 10^3/MM^3 10*3/mm3 142-424 Lab Report: CBC, MICROALB/CREAT W/RATIO - Lab microalbumin, urine 10 mg/L 0-19 Lab Report: Comp. Metabolic Panel, Thyro id Stimulating Hormone (L), Pros ... - Chemistry sodium, serum 144 mmol/L 031-250 3752/06/12 creatinine, serum 1.32 mg/dL 0.55-1.30 alanine aminotransferase [...] 11.1-13.4 international normalized ratio (INR) 2.7 1.0-3.5 international normalized ratio (INR) 2.4 1.0-3.5 prothrombin time (patient) 19.9 SECS s 11.1-13.4 Encounters Code Encounter Date Provider Facility CPT-88369 Level 3 Est. Patient 19:43:34 CDT Mitch luis [facility] CPT-40169 Level 4 Est. Patient 09:30:18 CDT Mitch luis [facility] CPT-37864 Level 3 Est. Patient 15:10:14 CDT Joe kamara [facility] CPT-83430 Level 3 Est. Patient 15:03:46 CDT Joe kamara [facility] CPT-89518 Level 3 Est. Patient 14:21:06 CDT Mitch luis [facility] CPT-16055 Level 3 Est. Patient 14:52:06 CDT Joe kamara [facility] CPT-39622 Level 3 Est. Patient 09:34:30 MARKETING BUSINESS ANALYST Mitch luis [facility] CPT-53908 Level 3 Est. Patient 09:37:15 CDT Mitch luis [facility] CPT-41136 Level 3 Est. Patient 17:01:00 MARKETING BUSINESS ANALYST Mitch luis [facility] CPT-59918 Level 3 Est. Patient 13:53:19 MARKETING BUSINESS ANALYST Mitch luis [facility] CPT-95585 Level 3 Est. Patient 19:19:37 MARKETING BUSINESS ANALYST Mitch luis [facility] CPT-06333 Level 3 Est. Patient 13:25:53 MARKETING BUSINESS ANALYST Tavo toure MD [facility] CPT-47529 Level 3 Est. Patient 18:17:28 CDT Mitch luis [facility] CPT-02048 Level 3 Est. Patient 15:22:57 CDT Mitch W L janelle [facility] CPT-23388 Level 3 Est. Patient 18:21:50 CDT Mitch W L janelle [facility] CPT-23692 Level 3 Est. Patient 18:20:38 CDT Mitch W L janelle [facility] CPT-93176 Level 3 Est. Patient 15:37:55 CDT Mitch W L janelle [facility] CPT-00798 Level 2 Est. Patient 15:54:44 CDT Carmine benton MD [facility] CPT-30809 Level 3 Est. Patient 21:46:01 MARKETING BUSINESS ANALYST Mitch luis [facility] CPT-45636 Level 3 Est. Patient 22:15:50 CDT Mitch W L janelle [facility] CPT-43938 Level 3 Est. Patient 10:48:15 CDT Mitch W Nona luis [facility] CPT-54341 Level 3 Est. Patient 23:20:57 CDT Tavo toure MD [facility] CPT-78428 Level 3 Est. Patient 16:26:13 CDT Mitch Ambrose L janelle [facility] Procedures Code Procedure Name Date Entry Date Standard Desc ription CPT-54454 Venipuncture Draw Fee 09:26:17 CDT CPT-81437 PT/INR - LAB USE ONLY 13:32:49 MARKETING BUSINESS ANALYST CPT-42376 Venipuncture Draw Fee 13:32:49 MARKETING BUSINESS ANALYST CPT-64234 PT/INR - LAB USE ONLY 10:34:49 MARKETING BUSINESS ANALYST CPT-16174 Venipuncture Draw Fee 10:34:48 MARKETING BUSINESS ANALYST CPT-71813 PT/INR - LAB USE ONLY 09:22:03 MARKETING BUSINESS ANALYST CPT-22637 Venipuncture Draw Fee 09:22:02 MARKETING BUSINESS ANALYST CPT-77054 Hemoccult IFOBT - LAB USE ONLY 10:27:22 CDT CPT-21810 Venipuncture Draw Fee 08:27:08 CDT CPT-92212 Liver Profile - LAB USE ONLY 08:27:07 CDT 2 CPT-60941 Microalbumin - LAB USE ONLY 08:27:07 CDT 20 25/05/09 CPT-52484 PT/INR - LAB USE ONLY 08:27:07 CDT CPT-38659 HGBA1C - LAB USE ONLY 08:27:07 CDT CPT-46771 CBC - LAB USE ONLY 08:27:07 CDT CPT-04857 Venipuncture Draw Fee 11:09:14 CDT CPT-43122 Venipuncture Draw Fee 08:32:21 MARKETING BUSINESS ANALYST CPT-41374 Venipuncture Draw Fee 09:38:56 MARKETING BUSINESS ANALYST CPT-84792 No Charge Offi Visit 21:36:07 CDT 1 CPT-90753 Venipuncture Draw Fee 10:13:28 MARKETING BUSINESS ANALYST CPT-43155 Venipuncture Draw Fee 08:31:11 CDT CPT-69377 Aspir/Inject Med Joint 18:17:28 CDT CPT-81742 Venipuncture Draw Fee 10:13:30 CDT CPT-05399 Venipuncture Draw Fee 08:31:43 MARKETING BUSINESS ANALYST CPT-JTINJ Joint Injection 18:34:50 CDT CPT-20997 Knee 3V 12:25:09 CDT CPT-32342 Venipuncture Draw Fee 12:15:57 CDT CPT-060 Medical Surveillance Exam 21:31:43 CDT 2011 CPT-27621 Venipuncture Draw Fee 08:32:05 MARKETING BUSINESS ANALYST CPT-OV Office Visit 18:19:06 CDT
--- OUTSIDE RECORDS SUMMARY | 2020-01-18 12:25 | XMS REPORT | Clinical Summary ---
Author Author Admin, Mitch Leon Organization [facility] Address Unknown Phone Unavailable Allergies, [...] Coronary atherosclerosis of unspecified type of vessel, [place] or graft EDEMA 782.3 Resolved Mitch Urbina [...] Inactive Mitch Urbina DO EDEMA ICD-782.3 Inactive Mithc Urbina DO DIZZINESS ICD-780.4 Inactive Mitch Urbina [...] TABS 1 tab qid prn gout COLCHICINE 33179271602 Active Kathie Juan RPT,RMA Active COUMADIN 1 MG TAB take 1 tab daily with 5mg tab. ( 6mg total ) 2015 WARFARIN SODIUM 00879755742 Active Domi Rivera MA Acti ve INVOKANA 100 MG ORAL TABS 1 tablet orally daily CANAGLIFLOZIN 33821593797 Active Kathie Juan RPT,RMA Active MINOXIDIL 2.5 MG TABS 1 tablet daily for high blood pressure 10/23 MINOXIDIL 20336396534 Active Mitch Urbina DO Active AMLODIPINE BESYLATE 5 MG TABS 1 tablet by mouth daily AMLODIPINE BESYLATE 21096194932 Active Domi Rivera MA Active MECLIZINE HCL 25 MG TAB 1 po tid 3 days, then 1/2 tab tid 3 days MECLIZINE HCL 23282039219 No Longer Active Corey SEGURA Active ALLOPURINOL 300 MG TABS Take 1 tablet by mouth daily 2 ALLOPURINOL 53071531123 No Longer Active Corey SEGURA Activ e CLONIDINE HCL 0.1 MG TABS 1 po bid 7 days, then 1/2 tab po b id 7 days CLONIDINE HCL 21917934848 No Longer Active Corey SEGURA Active COUMADIN 5 MG TABS 1 tab PO daily WARFARIN SODIUM 83083017806 Active Domi Rivera MA Active COUMADIN 4 MG TABS 1 tablet daily WARFARIN SODI UM 56107122569 No Longer Active Corey SEGURA Active POLYTRIM 31267-1.1 UNIT/ML-% SOLN 1 drop in affected e ye every 3 hours while awake x 7 days POLYMYXIN B-TRIMETHOPRIM 34084853980 N o Longer Active Corey SEGURA Active LOSARTAN POTASSIUM-HCTZ 100-12.5 MG TABS 1 by mouth da [place] for high blood pressure LOSARTAN POTASSIUM-HCTZ 51018985698 Active Domi Rivera MA Active LISINOPRIL-HYDROCHLOROTHIAZIDE 20-12.5 MG TABS 1 tab by mouth da rocky LISINOPRIL-HYDROCHLOROTHIAZIDE 97675517817 No Longer Active Mitch luis DO Active LISINOPRIL 20 MG TABS 1 tab po at HS LISINOPRIL 15484748384 No Longer Active Mitch Urbina DO Active COUMADIN 5 MG TABS 1 by mouth every other day WARFARIN SODIUM 59618162147 No Longer Active Mitch Urbina DO Active COUMADIN 6 MG TABS 1 by mouth every other day WARFARIN SODIUM 30324803886 No Longer Active Mitch Urbina DO Active SIMVASTATIN 40 MG TABS 1 tab daily at bedtime S IMVASTATIN 55337559994 Active Domi Rivera MA Active SIMVASTATIN 20 MG TABS 1 tab daily at bedtime S IMVASTATIN 95950151134 No Longer Active Mitch Urbina DO Active LOVENOX 100 MG/ML SC SOLN One injection twice a day 09/15/15 ENOXAPARIN SODIUM 85526326273 No Longer Active Carmine Navarrete ctive JANUVIA 50 MG TABS Take one by mouth daily DIEGO GLIPTIN PHOSPHATE 95225189102 Active Domi Rivera MA Active JANUVIA 100 MG TABS 1/2 by mouth every day DIEGO GLIPTIN PHOSPHATE 05642333186 No Longer Active Bijal Segal RN Active METFORMIN HCL 500 MG TABS 2 by mouth twice daily METFORMIN HCL 62775753335 Active Mitch Urbina DO Active GLIMEPIRIDE 4 MG TABS 1 tab po bid GLIMEPIRIDE 437106 31753 Active Mitch Urbina DO Active COLCRYS 0.6 MG TABS 1 po q 6 hours prn gout pain 03/02 COLCHICINE 88435276650 No Longer Active Camila Reese Active LISINOPRIL 5 MG TABS 1 by mouth every day LISIN OPRIL 62207640649 No Longer Active Nguyenmolly Perez Active KLOR-CON 20 MEQ PACK Take one by mouth daily 8 POTASSIUM CHLORIDE 86246163430 No Longer Active Nguyen Ana Active FUROSEMIDE 40 MG TABS 1 by mouth daily FUROSEMI DE 87458860365 No Longer Active Nguyen Ana Active PROVIGIL 200 MG TABS 1/2 tab po q day MODAFINIL 33140 796022 Active Domi Rivera MA Active PROVIGIL 100 MG TABS Take one by mouth daily MO DAFINIL 47941983179 No Longer Active Mitch Urbina DO Active BACTRIM DS 800-160 MG TAB 1 tab by mouth twice daily 2 TRIMETHOPRIM-SULFAMETHOXAZOLE 12887088199 No Longer Active Renan Hays MD Active FAMOTIDINE 20 MG TABS by mouth twice a day FAMOTI DINE 10157354659 Active Mitch Urbina DO Active ADULT ASPIRIN LOW STRENGTH 81 MG TBDP 1 by mouth every daily ASPIRIN 53469630735 Active Mitch Urbina DO Active METOPROLOL TARTRATE 50 MG TABS 1 by mouth twice daily METOPROLOL TARTRATE 43306507929 Active Domi Rivera MA Active BACTRIM DS 800-160 MG TAB 1 tab by mouth twice daily 2 BACTRIM DS 800-160 MG TAB 364251 TRIMETHOPRIM-SULFAMETHOXAZOLE Inac tive PROVIGIL 100 MG TABS Take one by mouth daily 4 PROVIGIL 100 MG TABS 514068 MODAFINIL Inactive FUROSEMIDE 40 MG TABS 1 by mouth daily FU ROSEMIDE 40 MG TABS 810429 FUROSEMIDE Inactive KLOR-CON 20 MEQ PACK Take one by mouth daily 8 KLOR-CON 20 MEQ PACK 497233 POTASSIUM CHLORIDE Inactive LISINOPRIL 5 MG TABS 1 by mouth every day LISINOPRIL 5 MG TABS 940082 LISINOPRIL Inactive COLCRYS 0.6 MG TABS 1 po q 6 hours prn gout pain 03/02 COLCRYS 0.6 MG TABS 135001 COLCHICINE Inactive JANUVIA 100 MG TABS 1/2 by mouth every day JANUVI A 100 MG TABS SITAGLIPTIN PHOSPHATE Inactive SIMVASTATIN 20 MG TABS 1 tab daily at bedtime SIMVASTATIN 20 MG TABS 325625 SIMVASTATIN Inactive COUMADIN 6 MG TABS 1 by mouth every other day COUMADIN 6 MG TABS 058372 WARFARIN SODIUM Inactive COUMADIN 5 MG TABS 1 by mouth every other day COUMADIN 5 MG TABS 025504 WARFARIN SODIUM Inactive LISINOPRIL 20 MG TABS 1 tab po at HS KOKI NOPRIL 20 MG TABS 504727 LISINOPRIL Inactive LISINOPRIL-HYDROCHLOROTHIAZIDE 20-12.5 MG TABS 1 tab by mouth da rocky LISINOPRIL-HYDROCHLOROTHIAZIDE 20-12.5 MG TABS 727252 LISINOPRIL-HYDROCHLOROTHIAZIDE Inactive POLYTRIM 09209-5.1 UNIT/ML-% SOLN 1 drop in affected e ye every 3 hours while awake x 7 days POLYTRIM 11793-7.1 UNIT/ML-% SOLN 37644 7 POLYMYXIN B-TRIMETHOPRIM Inactive COUMADIN 4 MG TABS 1 tablet daily COUMADIN 4 MG TABS 376985 WARFARIN SODIUM Inactive CLONIDINE HCL 0.1 MG TABS 1 po bid 7 days, then 1/2 tab po b id 7 days CLONIDINE HCL 0.1 MG TABS 904986 CLONIDINE HCL I nactive ALLOPURINOL 300 MG TABS Take 1 tablet by mouth daily 2 ALLOPURINOL 300 MG TABS 577610 ALLOPURINOL Inactive MECLIZINE HCL 25 MG TAB 1 po tid 3 days, then 1/2 tab tid 3 days MECLIZINE HCL 25 MG TAB 015261 MECLIZINE HCL Inactive LOVENOX 100 MG/ML SC SOLN One injection twice a day 09/15/15 LOVENOX 100 MG/ML SC SOLN 929048 ENOXAPARIN SODIUM Inactive Vital Signs Date Name [...] - Chem istry sodium, serum 136 mmol/L 699-039 3080/01/14 carbon dioxide, venous blood 25.4 mmol/L 21.0-32 [...] 1.0-3.5 Encounters Code Encounter Date Provider Facility CPT-14647 Level 3 Est. Patient 09:34:30 OFFENDER JOB RETENTION SPECIALIST Mitch luis DO [facility] CPT-53133 Level 3 Est. Patient 09:37:15 CDT Mitch luis DO [facility] CPT-83542 Level 3 Est. Patient 17:01:00 OFFENDER JOB RETENTION SPECIALIST Mitch luis DO [facility] CPT-05900 Level 3 Est. Patient 13:53:19 OFFENDER JOB RETENTION SPECIALIST Mitch luis [facility] CPT-08167 Level 3 Est. Patient 19:19:37 OFFENDER JOB RETENTION SPECIALIST Mitch luis [facility] CPT-63691 Level 3 Est. Patient 13:25:53 OFFENDER JOB RETENTION SPECIALIST Tavo toure MD [facility] CPT-10999 Level 3 Est. Patient 18:17:28 CDT Mitch luis [facility] CPT-95404 Level 3 Est. Patient 15:22:57 CDT Mitch luis [facility] CPT-99626 Level 3 Est. Patient 18:21:50 CDT Mitch luis [facility] CPT-19275 Level 3 Est. Patient 18:20:38 CDT Mitch luis [facility] CPT-06366 Level 3 Est. Patient 15:37:55 CDT Mitch luis [facility] CPT-13668 Level 2 Est. Patient 15:54:44 CDT Carmine benton MD [facility] CPT-50355 Level 3 Est. Patient 21:46:01 OFFENDER JOB RETENTION SPECIALIST Mitch luis [facility] CPT-89264 Level 3 Est. Patient 22:15:50 CDT Mitch luis [facility] CPT-95349 Level 3 Est. Patient 10:48:15 CDT Mitch luis [facility] CPT-16821 Level 3 Est. Patient 23:20:57 CDT Tavo toure MD [facility] CPT-71299 Level 3 Est. Patient 16:26:13 CDT Mitch Arnol luis [facility] Procedures Code Procedure Name Date Entry Date Standard Desc ription CPT-33762 Venipuncture Draw Fee 08:32:21 OFFENDER JOB RETENTION SPECIALIST CPT-96830 Venipuncture Draw Fee 09:38:56 OFFENDER JOB RETENTION SPECIALIST CPT-81784 No Charge Offi Visit 21:36:07 CDT 1 CPT-34599 Venipuncture Draw Fee 10:13:28 OFFENDER JOB RETENTION SPECIALIST CPT-92087 Venipuncture Draw Fee 08:31:11 CDT CPT-37484 Aspir/Inject Med Joint 18:17:28 CDT CPT-78989 Venipuncture Draw Fee 10:13:30 CDT CPT-76467 Venipuncture Draw Fee 08:31:43 OFFENDER JOB RETENTION SPECIALIST CPT-JTINJ Joint Injection 18:34:50 CDT CPT-47014 Knee 3V 12:25:09 CDT CPT-48405 Venipuncture Draw Fee 12:15:57 CDT CPT-060 Medical Surveillance Exam 21:31:43 CDT 2011 CPT-83418 Venipuncture Draw Fee 08:32:05 OFFENDER JOB RETENTION SPECIALIST CPT-OV Office Visit 18:19:06 CDT
--- OUTSIDE RECORDS SUMMARY | 2020-01-18 12:26 | XMS REPORT | Clinical Summary ---
Author Author Admin, Mitch Leon Organization [facility] Address Unknown Phone Unavailable Allergies, Adverse [...] Coronary atherosclerosis of unspecified type of vessel, [place] or graft EDEMA 782.3 Resolved Mitch Urbina [...] Cellulitis ICD-682.9 Inactive Micth Urbina DO 10/23 CELLULITIS, GROIN, LEFT ICD-682.2 Inactive Zoya Urbina DO Medication List Medication Instructions Start Date Stop Date Generic Name NDC Status Provider Patient Instruction GLIMEPIRIDE 2 MG ORAL TABLET 1 po BID GLIMEPIRID E 61892753512 Active Renee Oconnor LPN Active KEFLEX 500 MG ORAL CAPSULE 1 po qid CEPHALEXI N 80836241341 No Longer Active Mitch Urbina DO Active LOSARTAN POTASSIUM 100 MG ORAL TABLET 1 pill by mouth daily, for blood pressure LOSARTAN POTASSIUM 81344058445 Active Ana Wallace Active AMLODIPINE BESYLATE 5 MG ORAL TABLET 1 tablet by mouth daily 201 01/20/04 AMLODIPINE BESYLATE 69679952755 No Longer Active Joe fulton APRN Active MITIGARE 0.6 MG ORAL CAPSULE 2 capsules at onset of go ut pain, then take one capsule at 1 hour if symptoms persist. COLCHICINE 59 371969862 Active Mitch Urbina DO Active COUMADIN 1 MG ORAL TABLET 2 tabs orally daily with the 5mg tab to equal 7mg daily WARFARIN SODIUM 32185960611 Active Ana Wallace Active COLCRYS 0.6 MG ORAL TABLET 1 tab qid prn gout C OLCHICINE 67528516687 Active Norma Cazares Active INVOKANA 100 MG ORAL TABLET 1 tablet orally daily CANAGLIFLOZIN 44212364820 Active Mitch Urbina DO Active MINOXIDIL 2.5 MG ORAL TABLET 1 tablet daily for high blood press ure MINOXIDIL 56403806765 Active Mitch Urbina DO Active MECLIZINE HCL 25 MG ORAL TABLET 1 po tid 3 days, then 1/2 ta b tid 3 days MECLIZINE HCL 81820619400 No Longer Active Corey SEGURA Active ALLOPURINOL 300 MG ORAL TABLET Take 1 tablet by mouth daily 2012 ALLOPURINOL 81032916026 No Longer Active Corey SEGURA Active CLONIDINE HCL 0.1 MG ORAL TABLET 1 po bid 7 days, then 1/2 t ab po bid 7 days CLONIDINE HCL 56941273021 No Longer Active Corey SEGURA Active COUMADIN 5 MG ORAL TABLET 1 tab PO daily WARFAR IN SODIUM 88321738164 Active Mitch Urbina DO Active COUMADIN 4 MG ORAL TABLET 1 tablet daily WARFAR IN SODIUM 05254029343 No Longer Active Corey SEGURA Active POLYTRIM 10603-3.1 UNIT/ML-% OPHTHALMIC SOLUTION 1 rui p in affected eye every 3 hours while awake x 7 days POLYMYXIN B-TRIMETHOP RIM 49765260411 No Longer Active Corey SEGURA Active LOSARTAN POTASSIUM-HCTZ 100-12.5 MG ORAL TABLET 1 by m outh daily for high blood pressure LOSARTAN POTASSIUM-HCTZ 71966090227 No Longer A ctive Mitch Urbina DO Active LISINOPRIL-HYDROCHLOROTHIAZIDE 20-12.5 MG ORAL TABLET 1 tab by m outh daily LISINOPRIL-HYDROCHLOROTHIAZIDE 18328655422 No Longer Active Mitch Urbina DO Active LISINOPRIL 20 MG ORAL TABLET 1 tab po at HS LIS INOPRIL 05231200129 No Longer Active Mitch Urbina DO Active COUMADIN 5 MG ORAL TABLET 1 by mouth every other day 2 WARFARIN SODIUM 84311368745 No Longer Active Mitch Urbina DO Active COUMADIN 6 MG ORAL TABLET 1 by mouth every other day 2 WARFARIN SODIUM 32755710338 No Longer Active Mitch Urbina DO Active SIMVASTATIN 40 MG ORAL TABLET 1 tab daily at bedtime SIMVASTATIN 63727663199 Active Mitch Urbina DO Active SIMVASTATIN 20 MG ORAL TABLET 1 tab daily at bedtime 2 SIMVASTATIN 06464916045 No Longer Active Mitch Urbina DO Active LOVENOX 100 MG/ML SUBCUTANEOUS SOLUTION One injection twice a da y ENOXAPARIN SODIUM 67241623476 No Longer Active Carmine Yusuf MD Active JANUVIA 50 MG ORAL TABLET Take one by mouth daily SITAGLIPTIN PHOSPHATE 51323855151 Active Mitch Urbina DO Active JANUVIA 100 MG ORAL TABLET 1/2 by mouth every day 2011 SITAGLIPTIN PHOSPHATE 17165956480 No Longer Active Bijal Segal RN Acti ve METFORMIN HCL 500 MG ORAL TABLET 2 by mouth twice daily METFORMIN HCL 36073031333 Active Mitch Urbina DO Active COLCRYS 0.6 MG ORAL TABLET 1 po q 6 hours prn gout pain COLCHICINE 98543934286 No Longer Active Camila Reese Active LISINOPRIL 5 MG ORAL TABLET 1 by mouth every day 11/17 LISINOPRIL 11295011228 No Longer Active Nguyen Ana Active KLOR-CON 20 MEQ ORAL PACKET Take one by mouth daily 09/10/08 POTASSIUM CHLORIDE 25828368694 No Longer Active Nguyen Coekman Active FUROSEMIDE 40 MG ORAL TABLET 1 by mouth daily F UROSEMIDE 66540338770 No Longer Active Nguyen Perez Active PROVIGIL 200 MG ORAL TABLET 1/2 tab po q day MODA FINIL 15291785828 Active Mitch Urbina DO Active PROVIGIL 100 MG ORAL TABLET Take one by mouth daily 08/20/04 MODAFINIL 69460693581 No Longer Active Mitch Urbina DO Active BACTRIM DS 800-160 MG ORAL TABLET 1 tab by mouth twice daily 201 10/19/09 TRIMETHOPRIM-SULFAMETHOXAZOLE 96338361227 No Longer Active Elian Hays MD Active FAMOTIDINE 20 MG ORAL TABLET by mouth twice a day FAMOTIDINE 36029281856 Active Mitch Urbina DO Active ADULT ASPIRIN LOW STRENGTH 81 MG ORAL TABLET DISINTEGR ATING 1 by mouth every daily ASPIRIN 50373342457 Active Mitch Urbina DO Ac tive METOPROLOL TARTRATE 50 MG ORAL TABLET 1 by mouth twice daily METOPROLOL TARTRATE 74709133954 Active Mitch Urbina DO Active BACTRIM DS 800-160 MG ORAL TABLET 1 tab by mouth twice daily 201 10/19/09 BACTRIM DS 800-160 MG ORAL TABLET 495145 TRIMETHOPRIM-SULFAMETHOXAZOLE Inactive PROVIGIL 100 MG ORAL TABLET Take one by mouth daily 08/20/04 PROVIGIL 100 MG ORAL TABLET 173785 MODAFINIL Inactive FUROSEMIDE 40 MG ORAL TABLET 1 by mouth daily FUROSEMIDE 40 MG ORAL TABLET 920409 FUROSEMIDE Inactive KLOR-CON 20 MEQ ORAL PACKET Take one by mouth daily 09/10/08 KLOR- CON 20 MEQ ORAL PACKET 2843265 POTASSIUM CHLORIDE Inactive LISINOPRIL 5 MG ORAL TABLET 1 by mouth every day 11/17 LISINOPRIL 5 MG ORAL TABLET 381766 LISINOPRIL Inactive COLCRYS 0.6 MG ORAL TABLET 1 po q 6 hours prn gout pain COLCRYS 0.6 MG ORAL TABLET 429422 COLCHICINE Inactive JANUVIA 100 MG ORAL TABLET 1/2 by mouth every day 2011 JANUVIA 100 MG ORAL TABLET SITAGLIPTIN PHOSPHATE Inactive SIMVASTATIN 20 MG ORAL TABLET 1 tab daily at bedtime 2 SIMVASTATIN 20 MG ORAL TABLET 317754 SIMVASTATIN Inactive COUMADIN 6 MG ORAL TABLET 1 by mouth every other day 2 COUMADIN 6 MG ORAL TABLET 302499 WARFARIN SODIUM Inactive COUMADIN 5 MG ORAL TABLET 1 by mouth every other day 2 COUMADIN 5 MG ORAL TABLET 667951 WARFARIN SODIUM Inactive LISINOPRIL 20 MG ORAL TABLET 1 tab po at HS LISINOPRIL 20 MG ORAL TABLET 922918 LISINOPRIL Inactive LISINOPRIL-HYDROCHLOROTHIAZIDE 20-12.5 MG ORAL TABLET 1 tab by m outh daily LISINOPRIL-HYDROCHLOROTHIAZIDE 20-12.5 MG ORAL TABLET 229724 LISINOPRIL-HYDROCHLOROTHIAZIDE Inactive POLYTRIM 76272-3.1 UNIT/ML-% OPHTHALMIC SOLUTION 1 rui p in affected eye every 3 hours while awake x 7 days POLYTRIM 1000 0-0.1 UNIT/ML-% OPHTHALMIC SOLUTION 729420 POLYMYXIN B-TRIMETHOPRIM Inactive COUMADIN 4 MG ORAL TABLET 1 tablet daily COUMADIN 4 MG ORAL TABLET 667092 WARFARIN SODIUM Inactive CLONIDINE HCL 0.1 MG ORAL TABLET 1 po bid 7 days, then 1/2 t ab po bid 7 days CLONIDINE HCL 0.1 MG ORAL TABLET 664069 CLONIDIN E HCL Inactive ALLOPURINOL 300 MG ORAL TABLET Take 1 tablet by mouth daily 2012 ALLOPURINOL 300 MG ORAL TABLET 200427 ALLOPURINOL I nactive MECLIZINE HCL 25 MG ORAL TABLET 1 po tid 3 days, then 1/2 ta b tid 3 days MECLIZINE HCL 25 MG ORAL TABLET 074949 MECLIZINE HCL Inactive AMLODIPINE BESYLATE 5 MG ORAL TABLET 1 tablet by mouth daily 201 01/20/04 AMLODIPINE BESYLATE 5 MG ORAL TABLET 745400 AMLODIPINE BESYLATE Inactive KEFLEX 500 MG ORAL CAPSULE 1 po qid K EFLEX 500 MG ORAL CAPSULE 988749 CEPHALEXIN Inactive LOVENOX 100 MG/ML SUBCUTANEOUS SOLUTION One injection twice a da y LOVENOX 100 MG/ML SUBCUTANEOUS SOLUTION 640247 ENOXAPAR IN SODIUM Inactive Vital Signs Date [...] Metabolic Panel - Chem istry sodium, serum 141 mmol/L 528-567 0671/08/07 potassium, serum 4.5 mmol/L 3.5-5.2 chloride, serum 102 mmol/L 98-107 carbon dioxide, venous blood 31.7 mmol/L 21.0-32 .0 blood glucose 117 mg/dL 65-110 calcium, serum 10.5 mg/dL 8.5-10.1 urea nitrogen, blood 26 mg/dL 7-18 creatinine, serum 1.15 mg/dL 0.60-1.30 sodium, serum 139 mmol/L 872-351 8610/07/17 potassium, serum 4.2 mmol/L 3.5-5.2 chloride, serum [...] ... - Chemistry sodium, serum 144 mmol/L 568-329 1356/06/12 carbon dioxide, venous blood 26.6 mmol/L 21.0-32 [...] HGBA1C - Chemistry cholesterol, serum 136 mg/dL 828-139 9659/12/06 triglyceride, serum, fasting 247 mg/dL 30-200 HDL [...] 11.1-13.4 Encounters Code Encounter Date Provider Facility CPT-19845 Level 3 Est. Patient 18:25:53 CDT Mitch luis [facility] CPT-02789 Level 3 Est. Patient 19:43:34 CDT Mitch luis [facility] CPT-46700 Level 4 Est. Patient 09:30:18 CDT Mitch luis [facility] CPT-34170 Level 3 Est. Patient 15:10:14 CDT Joe kamara [facility] [place] 2] CPT-60139 Level 3 Est. Patient 15:03:46 CDT Joe kamara [facility] [place][note 2] CPT-70712 Level 3 Est. Patient 14:21:06 CDT Mitch luis [facility] CPT-92316 Level 3 Est. Patient 14:52:06 CDT Joe kamara [facility] [place][note 2] CPT-32129 Level 3 Est. Patient 09:34:30 TECHNICAL OPERATIONS VICE PRESIDENT Mitch Castellano [facility] CPT-65434 Level 3 Est. Patient 09:37:15 CDT Mitch luis [facility] CPT-32854 Level 3 Est. Patient 17:01:00 TECHNICAL OPERATIONS VICE PRESIDENT Mitch luis [facility] CPT-27051 Level 3 Est. Patient 13:53:19 TECHNICAL OPERATIONS VICE PRESIDENT Mitch W Nona luis [facility] CPT-24220 Level 3 Est. Patient 19:19:37 TECHNICAL OPERATIONS VICE PRESIDENT Mitch W L janelle [facility] CPT-09486 Level 3 Est. Patient 13:25:53 TECHNICAL OPERATIONS VICE PRESIDENT Tavo toure MD [facility] CPT-21917 Level 3 Est. Patient 18:17:28 CDT Mitch Ambrose L janelle [facility] CPT-77450 Level 3 Est. Patient 15:22:57 CDT Mitch W L janelle [facility] CPT-15629 Level 3 Est. Patient 18:21:50 CDT Mitch W L janelle [facility] CPT-20782 Level 3 Est. Patient 18:20:38 CDT Mitch W L janelle [facility] CPT-49443 Level 3 Est. Patient 15:37:55 CDT Mitch luis [facility] CPT-57325 Level 2 Est. Patient 15:54:44 CDT Carmine benton MD [facility]-32904 Level 3 Est. Patient 21:46:01 TECHNICAL OPERATIONS VICE PRESIDENT Mitch luis [facility] CPT-65489 Level 3 Est. Patient 22:15:50 CDT Mitch luis [facility] CPT-70076 Level 3 Est. Patient 10:48:15 CDT Mitch W L janelle [facility] CPT-00555 Level 3 Est. Patient 23:20:57 CDT Tavo toure MD [facility]-31054 Level 3 Est. Patient 16:26:13 CDT Mitch Ambrose L janelle [facility] Procedures Code Procedure Name Date Entry Date Standard Desc ription CPT-76267 Venipuncture Draw Fee 09:26:17 CDT CPT-71477 PT/INR - LAB USE ONLY 13:32:49 TECHNICAL OPERATIONS VICE PRESIDENT CPT-70530 Venipuncture Draw Fee 13:32:49 TECHNICAL OPERATIONS VICE PRESIDENT CPT-61744 PT/INR - LAB USE ONLY 10:34:49 TECHNICAL OPERATIONS VICE PRESIDENT CPT-36942 Venipuncture Draw Fee 10:34:48 TECHNICAL OPERATIONS VICE PRESIDENT CPT-64631 PT/INR - LAB USE ONLY 09:22:03 TECHNICAL OPERATIONS VICE PRESIDENT CPT-67319 Venipuncture Draw Fee 09:22:02 TECHNICAL OPERATIONS VICE PRESIDENT CPT-18221 Hemoccult IFOBT - LAB USE ONLY 10:27:22 CDT CPT-87686 Venipuncture Draw Fee 08:27:08 CDT CPT-54000 Liver Profile - LAB USE ONLY 08:27:07 CDT 2 CPT-43578 Microalbumin - LAB USE ONLY 08:27:07 CDT 20 25/05/09 CPT-21516 PT/INR - LAB USE ONLY 08:27:07 CDT CPT-83260 HGBA1C - LAB USE ONLY 08:27:07 CDT CPT-11985 CBC - LAB USE ONLY 08:27:07 CDT CPT-88644 Venipuncture Draw Fee 11:09:14 CDT CPT-94782 Venipuncture Draw Fee 08:32:21 TECHNICAL OPERATIONS VICE PRESIDENT CPT-19967 Venipuncture Draw Fee 09:38:56 TECHNICAL OPERATIONS VICE PRESIDENT CPT-45425 No Charge Offi Visit 21:36:07 CDT 1 CPT-86148 Venipuncture Draw Fee 10:13:28 TECHNICAL OPERATIONS VICE PRESIDENT CPT-66719 Venipuncture Draw Fee 08:31:11 CDT CPT-64200 Aspir/Inject Med Joint 18:17:28 CDT CPT-50496 Venipuncture Draw Fee 10:13:30 CDT CPT-65642 Venipuncture Draw Fee 08:31:43 TECHNICAL OPERATIONS VICE PRESIDENT CPT-JTINJ Joint Injection 18:34:50 CDT CPT-05499 Knee 3V 12:25:09 CDT CPT-01116 Venipuncture Draw Fee 12:15:57 CDT CPT-060 Medical Surveillance Exam 21:31:43 CDT 2011 CPT-85469 Venipuncture Draw Fee 08:32:05 TECHNICAL OPERATIONS VICE PRESIDENT CPT-OV Office Visit 18:19:06 CDT
--- OUTSIDE RECORDS SUMMARY | 2020-01-18 12:26 | XMS REPORT | Clinical Summary ---
Author Author Admin, Mitch Leon Organization [facility] [email or web address] Address Unknown Phone Unavailable Allergies, Adverse Reactions, [...] Coronary atherosclerosis of unspecified type of vessel, ione or graft EDEMA 782.3 Resolved Mitch Urbina [...] tab to equal 7mg daily WARFARIN SODIUM 05600781155 Active Kathie Juan RPT,R MA Active COLCRYS 0.6 MG TABS 1 tab qid prn gout COLCHICINE 16658219959 Active Kathie Juan RPT,RMA Active INVOKANA 100 MG ORAL TABS 1 tablet orally daily CANAGLIFLOZIN 95350616810 Active Kathie Juan RPT,RMA Active MINOXIDIL 2.5 MG TABS 1 tablet daily for high blood pressure 10/23 MINOXIDIL 59663322754 Active Mitch Arnol Carlitos DO Active AMLODIPINE BESYLATE 5 MG TABS 1 tablet by mouth daily AMLODIPINE BESYLATE 14197430188 Active Domi Rivera MA Active MECLIZINE HCL 25 MG TAB 1 po tid 3 days, then 1/2 tab tid 3 days MECLIZINE HCL 65780708516 No Longer Active Corey SEGURA Active ALLOPURINOL 300 MG TABS Take 1 tablet by mouth daily 2 ALLOPURINOL 18137549882 No Longer Active Corey SEGURA Activ e CLONIDINE HCL 0.1 MG TABS 1 po bid 7 days, then 1/2 tab po b id 7 days CLONIDINE HCL 42962061851 No Longer Active Corey SEGURA Active COUMADIN 5 MG TABS 1 tab PO daily WARFARIN SODIUM 82478894038 Active Domi Rivera MA Active COUMADIN 4 MG TABS 1 tablet daily WARFARIN SODI UM 00426095421 No Longer Active Corey SEGURA Active POLYTRIM 53582-7.1 UNIT/ML-% SOLN 1 drop in affected e ye every 3 hours while awake x 7 days POLYMYXIN B-TRIMETHOPRIM 07826376051 N o Longer Active Corey SEGURA Active LOSARTAN POTASSIUM-HCTZ 100-12.5 MG TABS 1 by mouth da rocky for high blood pressure LOSARTAN POTASSIUM-HCTZ 11761163419 Active Domi Rivera MA Active LISINOPRIL-HYDROCHLOROTHIAZIDE 20-12.5 MG TABS 1 tab by mouth da rocky LISINOPRIL-HYDROCHLOROTHIAZIDE 35199978671 No Longer Active Mitch luis DO Active LISINOPRIL 20 MG TABS 1 tab po at HS LISINOPRIL 06071319815 No Longer Active Mitch Urbina DO Active COUMADIN 5 MG TABS 1 by mouth every other day WARFARIN SODIUM 59046975704 No Longer Active Mitch Urbina DO Active COUMADIN 6 MG TABS 1 by mouth every other day WARFARIN SODIUM 43939374697 No Longer Active Mitch Urbina DO Active SIMVASTATIN 40 MG TABS 1 tab daily at bedtime S IMVASTATIN 21845198188 Active Domi Rivera MA Active SIMVASTATIN 20 MG TABS 1 tab daily at bedtime S IMVASTATIN 24944426966 No Longer Active Mitch Urbina DO Active LOVENOX 100 MG/ML SC SOLN One injection twice a day 09/15/15 ENOXAPARIN SODIUM 10001906789 No Longer Active Carmine Yusuf MD A ctive JANUVIA 50 MG TABS Take one by mouth daily DIEGO GLIPTIN PHOSPHATE 45729747990 Active Tavo Hilton MD Active JANUVIA 100 MG TABS 1/2 by mouth every day DIEGO GLIPTIN PHOSPHATE 64853420555 No Longer Active Bijal Segal RN Active METFORMIN HCL 500 MG TABS 2 by mouth twice daily METFORMIN HCL 31757466699 Active Mitch Urbina DO Active GLIMEPIRIDE 4 MG TABS 1 tab po bid GLIMEPIRIDE 621930 24455 Active Mitch Urbina DO Active COLCRYS 0.6 MG TABS 1 po q 6 hours prn gout pain 03/02 COLCHICINE 77939845251 No Longer Active Camila Reese Active LISINOPRIL 5 MG TABS 1 by mouth every day LISIN OPRIL 43424606728 No Longer Active Nguyen Perez Active KLOR-CON 20 MEQ PACK Take one by mouth daily 8 POTASSIUM CHLORIDE 82546565885 No Longer Active Nguyen Perez Active FUROSEMIDE 40 MG TABS 1 by mouth daily FUROSEMI DE 96834616275 No Longer Active Nguyen Perez Active PROVIGIL 200 MG TABS 1/2 tab po q day MODAFINIL 28658 993530 Active Curly Coker MD Active PROVIGIL 100 MG TABS Take one by mouth daily MO DAFINIL 33936616344 No Longer Active Mitch Urbina DO Active BACTRIM DS 800-160 MG TAB 1 tab by mouth twice daily 2 TRIMETHOPRIM-SULFAMETHOXAZOLE 95073827142 No Longer Active Renan Hays MD Active FAMOTIDINE 20 MG TABS by mouth twice a day FAMOTI DINE 22810952751 Active Mitch Urbina DO Active ADULT ASPIRIN LOW STRENGTH 81 MG TBDP 1 by mouth every daily ASPIRIN 07607933570 Active Mitch Urbina DO Active METOPROLOL TARTRATE 50 MG TABS 1 by mouth twice daily METOPROLOL TARTRATE 23512956980 Active Domi Rivera MA Active BACTRIM DS 800-160 MG TAB 1 tab by mouth twice daily 2 BACTRIM DS 800-160 MG TAB 525443 TRIMETHOPRIM-SULFAMETHOXAZOLE Inac tive PROVIGIL 100 MG TABS Take one by mouth daily 4 PROVIGIL 100 MG TABS 636581 MODAFINIL Inactive FUROSEMIDE 40 MG TABS 1 by mouth daily FU ROSEMIDE 40 MG TABS 466284 FUROSEMIDE Inactive KLOR-CON 20 MEQ PACK Take one by mouth daily 8 KLOR-CON 20 MEQ PACK 146073 POTASSIUM CHLORIDE Inactive LISINOPRIL 5 MG TABS 1 by mouth every day LISINOPRIL 5 MG TABS 037549 LISINOPRIL Inactive COLCRYS 0.6 MG TABS 1 po q 6 hours prn gout pain 03/02 COLCRYS 0.6 MG TABS 066167 COLCHICINE Inactive JANUVIA 100 MG TABS 1/2 by mouth every day JANUVI A 100 MG TABS SITAGLIPTIN PHOSPHATE Inactive SIMVASTATIN 20 MG TABS 1 tab daily at bedtime SIMVASTATIN 20 MG TABS 964206 SIMVASTATIN Inactive COUMADIN 6 MG TABS 1 by mouth every other day COUMADIN 6 MG TABS 423472 WARFARIN SODIUM Inactive COUMADIN 5 MG TABS 1 by mouth every other day COUMADIN 5 MG TABS 601753 WARFARIN SODIUM Inactive LISINOPRIL 20 MG TABS 1 tab po at HS KOKI NOPRIL 20 MG TABS 566867 LISINOPRIL Inactive LISINOPRIL-HYDROCHLOROTHIAZIDE 20-12.5 MG TABS 1 tab by mouth da rocky LISINOPRIL-HYDROCHLOROTHIAZIDE 20-12.5 MG TABS 700532 LISINOPRIL-HYDROCHLOROTHIAZIDE Inactive POLYTRIM 67556-1.1 UNIT/ML-% SOLN 1 drop in affected e ye every 3 hours while awake x 7 days POLYTRIM 35346-1.1 UNIT/ML-% SOLN 82237 7 POLYMYXIN B-TRIMETHOPRIM Inactive COUMADIN 4 MG TABS 1 tablet daily COUMADIN 4 MG TABS 380992 WARFARIN SODIUM Inactive CLONIDINE HCL 0.1 MG TABS 1 po bid 7 days, then 1/2 tab po b id 7 days CLONIDINE HCL 0.1 MG TABS 105545 CLONIDINE HCL I nactive ALLOPURINOL 300 MG TABS Take 1 tablet by mouth daily 2 ALLOPURINOL 300 MG TABS 386756 ALLOPURINOL Inactive MECLIZINE HCL 25 MG TAB 1 po tid 3 days, then 1/2 tab tid 3 days MECLIZINE HCL 25 MG TAB 492171 MECLIZINE HCL Inactive LOVENOX 100 MG/ML SC SOLN One injection twice a day 20 09/15/15 LOVENOX 100 MG/ML SC SOLN 163359 ENOXAPARIN SODIUM Inactive Vital Signs Date Name [...] - Chem istry sodium, serum 136 mmol/L 586-751 1204/01/14 carbon dioxide, venous blood 25.4 mmol/L 21.0-32 [...] CBC - Chemistry cholesterol, serum 136 mg/dL 710-771 2244/08/09 triglyceride, serum, fasting 187 mg/dL 30-200 HDL [...] 1.0-3.5 Encounters Code Encounter Date Provider Facility CPT-36380 Level 3 Est. Patient 09:34:30 COKE INSPECTOR Mitch luis [facility] CPT-89046 Level 3 Est. Patient 09:37:15 CDT Mitch luis [facility] CPT-13748 Level 3 Est. Patient 17:01:00 COKE INSPECTOR Mitch luis [facility] CPT-08177 Level 3 Est. Patient 13:53:19 COKE INSPECTOR Mitch luis [facility] CPT-49234 Level 3 Est. Patient 19:19:37 COKE INSPECTOR Mitch luis [facility] CPT-78744 Level 3 Est. Patient 13:25:53 COKE INSPECTOR Tavo toure MD [facility] CPT-38613 Level 3 Est. Patient 18:17:28 CDT Mitch luis [facility] CPT-46197 Level 3 Est. Patient 15:22:57 CDT Mitch luis [facility] CPT-12026 Level 3 Est. Patient 18:21:50 CDT Mitch luis [facility] CPT-08904 Level 3 Est. Patient 18:20:38 CDT Mitch luis [facility] CPT-65178 Level 3 Est. Patient 15:37:55 CDT Mitch luis [facility] CPT-07719 Level 2 Est. Patient 15:54:44 CDT Carmine benton MD [facility]-92390 Level 3 Est. Patient 21:46:01 COKE INSPECTOR Mitch luis [facility] CPT-46996 Level 3 Est. Patient 22:15:50 CDT Mitch luis [facility] CPT-79889 Level 3 Est. Patient 10:48:15 CDT Mitch luis [facility] CPT-93177 Level 3 Est. Patient 23:20:57 CDT Tavo toure MD [facility]-20277 Level 3 Est. Patient 16:26:13 CDT Mitch Arnol luis [facility] Procedures Code Procedure Name Date Entry Date Standard Desc ription CPT-69646 Hemoccult IFOBT - LAB USE ONLY 10:27:22 CDT CPT-37253 Venipuncture Draw Fee 08:27:08 CDT CPT-85928 Liver Profile - LAB USE ONLY 08:27:07 CDT 2 CPT-62263 Microalbumin - LAB USE ONLY 08:27:07 CDT 20 25/05/09 CPT-02004 PT/INR - LAB USE ONLY 08:27:07 CDT CPT-91497 HGBA1C - LAB USE ONLY 08:27:07 CDT CPT-08546 CBC - LAB USE ONLY 08:27:07 CDT CPT-29813 Venipuncture Draw Fee 11:09:14 CDT CPT-58041 Venipuncture Draw Fee 08:32:21 COKE INSPECTOR CPT-35893 Venipuncture Draw Fee 09:38:56 COKE INSPECTOR CPT-79570 No Charge Offi Visit 21:36:07 CDT 1 CPT-67407 Venipuncture Draw Fee 10:13:28 COKE INSPECTOR CPT-13405 Venipuncture Draw Fee 08:31:11 CDT CPT-62864 Aspir/Inject Med Joint 18:17:28 CDT CPT-20954 Venipuncture Draw Fee 10:13:30 CDT CPT-25470 Venipuncture Draw Fee 08:31:43 COKE INSPECTOR CPT-JTINJ Joint Injection 18:34:50 CDT CPT-35722 Knee 3V 12:25:09 CDT CPT-70829 Venipuncture Draw Fee 12:15:57 CDT CPT-060 Medical Surveillance Exam 21:31:43 CDT 2011 CPT-89787 Venipuncture Draw Fee 08:32:05 COKE INSPECTOR CPT-OV Office Visit 18:19:06 CDT
--- OUTSIDE RECORDS SUMMARY | 2020-01-18 12:26 | XMS REPORT | Clinical Summary ---
Author Author Admin, Mitch Leon Organization [facility] [employer] Address Unknown Phone Unavailable Allergies, Adverse [...] Coronary atherosclerosis of unspecified type of vessel, qawalangin or graft EDEMA 782.3 Resolved Mitch Urbina [...] Gout, unspecified BRUISE 924.9 Resolved Mitch W Calritos DO Co ntusion of unspecified site OLECRANON [...] disease, knee, right 715.96 Active Mitch Arnol Carlitos DO Osteoarthrosis, unspecified whether generalized or localized, involving lower leg Degenerative joint disease, knee, left 715.96 Active Mitch Arnol Carlitos DO Osteoarthrosis, unspecified whether generalized or localized, involving lower leg SEROMA ICD-998.13 Inactive Mitch W Carlitos DO REACTIVE HYPOGLYCEMIA ICD-251.2 Inactive Mitch W Carlitos DO LONG-TERM (CURRENT) USE OF ANTICOAGULANTS ICD-V58.61 Inactive Mitch W Carlitos DO EDEMA ICD-782.3 Inactive Mtich W Carlitos DO DIZZINESS ICD-780.4 Inactive Mitch Urbina DO [...] DO 10/23 CELLULITIS, GROIN, LEFT ICD-682.2 Inactive Bruc e W Carlitos DO Medication List Medication Instructions Start Date Stop Date Generic Name NDC Status Provider Patient Instruction FAMOTIDINE 20 MG ORAL TABLET by mouth twice a day 2017 FAMOTIDINE 85054795713 No Longer Active Mitch Urbina DO Active COLCRYS 0.6 MG ORAL TABLET 1 tab qid prn gout C OLCHICINE 80173993901 No Longer Active Mitch Urbina DO Active GLIMEPIRIDE 2 MG ORAL TABLET 1 po BID GLIMEPIRID E 39023510568 Active Renee Oconnor VENDING MACHINE COLLECTOR Active KEFLEX 500 MG ORAL CAPSULE 1 po qid CEPHALEXI N 46499695172 No Longer Active Mitch Urbina DO Active LOSARTAN POTASSIUM 100 MG ORAL TABLET 1 pill by mouth daily, for blood pressure LOSARTAN POTASSIUM 62139185222 Active Ana Wallace Active AMLODIPINE BESYLATE 5 MG ORAL TABLET 1 tablet by mouth daily 201 01/20/04 AMLODIPINE BESYLATE 64464263477 No Longer Active Joe fulton APRN Active MITIGARE 0.6 MG ORAL CAPSULE 2 capsules at onset of go ut pain, then take one capsule at 1 hour if symptoms persist. COLCHICINE 59 812233551 Active Mitch Urbina DO Active COUMADIN 1 MG ORAL TABLET 2 tabs orally daily with the 5mg tab to equal 7mg daily WARFARIN SODIUM 94259304667 Active Ana Wallace Active INVOKANA 100 MG ORAL TABLET 1 tablet orally daily CANAGLIFLOZIN 94498243222 Active Mitch Urbina DO Active MINOXIDIL 2.5 MG ORAL TABLET 1 tablet daily for high blood press ure MINOXIDIL 03237403126 Active Mitch Urbina DO Active MECLIZINE HCL 25 MG ORAL TABLET 1 po tid 3 days, then 1/2 ta b tid 3 days MECLIZINE HCL 22514503851 No Longer Active Corey SEGURA Active ALLOPURINOL 300 MG ORAL TABLET Take 1 tablet by mouth daily 2012 ALLOPURINOL 10560455346 No Longer Active Corey SEGURA Active CLONIDINE HCL 0.1 MG ORAL TABLET 1 po bid 7 days, then 1/2 t ab po bid 7 days CLONIDINE HCL 61444627682 No Longer Active Corey SEGURA Active COUMADIN 5 MG ORAL TABLET 1 tab PO daily WARFAR IN SODIUM 97346994670 Active Mitch Urbina DO Active COUMADIN 4 MG ORAL TABLET 1 tablet daily WARFAR IN SODIUM 34438411051 No Longer Active Corey SEGURA Active POLYTRIM 17237-2.1 UNIT/ML-% OPHTHALMIC SOLUTION 1 rui p in affected eye every 3 hours while awake x 7 days POLYMYXIN B-TRIMETHOP RIM 03862510858 No Longer Active Corey SEGURA Active LOSARTAN POTASSIUM-HCTZ 100-12.5 MG ORAL TABLET 1 by m outh daily for high blood pressure LOSARTAN POTASSIUM-HCTZ 88091460957 No Longer A ctive Mitch Urbina DO Active LISINOPRIL-HYDROCHLOROTHIAZIDE 20-12.5 MG ORAL TABLET 1 tab by m outh daily LISINOPRIL-HYDROCHLOROTHIAZIDE 47455706015 No Longer Active Mitch Urbina DO Active LISINOPRIL 20 MG ORAL TABLET 1 tab po at HS LIS INOPRIL 35991084475 No Longer Active Mitch Urbina DO Active COUMADIN 5 MG ORAL TABLET 1 by mouth every other day 2 WARFARIN SODIUM 89782217618 No Longer Active Mitch Urbina DO Active COUMADIN 6 MG ORAL TABLET 1 by mouth every other day 2 WARFARIN SODIUM 06772926018 No Longer Active Mitch Urbina DO Active SIMVASTATIN 40 MG ORAL TABLET 1 tab daily at bedtime SIMVASTATIN 66383766214 Active Mitch Urbina DO Active SIMVASTATIN 20 MG ORAL TABLET 1 tab daily at bedtime 2 SIMVASTATIN 71611588819 No Longer Active Mitch Urbina DO Active LOVENOX 100 MG/ML SUBCUTANEOUS SOLUTION One injection twice a da y ENOXAPARIN SODIUM 92652811983 No Longer Active Carmine Yusuf MD Active JANUVIA 50 MG ORAL TABLET Take one by mouth daily SITAGLIPTIN PHOSPHATE 92969410833 Active Mitch W Carlitos DO Active JANUVIA 100 MG ORAL TABLET 1/2 by mouth every day 2011 SITAGLIPTIN PHOSPHATE 87251015138 No Longer Active Bijal Segal RN Acti ve METFORMIN HCL 500 MG ORAL TABLET 2 by mouth twice daily METFORMIN HCL 27624637158 Active Mitch Arnol Urbina DO Active COLCRYS 0.6 MG ORAL TABLET 1 po q 6 hours prn gout pain COLCHICINE 01923845387 No Longer Active Camila Reese Active LISINOPRIL 5 MG ORAL TABLET 1 by mouth every day 11/17 LISINOPRIL 25439404210 No Longer Active Nguyen Perez Active KLOR-CON 20 MEQ ORAL PACKET Take one by mouth daily 09/10/08 POTASSIUM CHLORIDE 63225101386 No Longer Active Nguyen Perez Active FUROSEMIDE 40 MG ORAL TABLET 1 by mouth daily F UROSEMIDE 19537314170 No Longer Active Nguyen Perez Active PROVIGIL 200 MG ORAL TABLET 1/2 tab po q day MODA FINIL 80785992833 Active Renee Elvin BURNETTN Active PROVIGIL 100 MG ORAL TABLET Take one by mouth daily 08/20/04 MODAFINIL 29622481091 No Longer Active Mitch Urbina DO Active BACTRIM DS 800-160 MG ORAL TABLET 1 tab by mouth twice daily 201 10/19/09 TRIMETHOPRIM-SULFAMETHOXAZOLE 94171891288 No Longer Active C alberto Hays MD Active ADULT ASPIRIN LOW STRENGTH 81 MG ORAL TABLET DISINTEGR ATING 1 by mouth every daily ASPIRIN 03011983582 Active Mitch Urbina DO Ac tive METOPROLOL TARTRATE 50 MG ORAL TABLET 1 by mouth twice daily METOPROLOL TARTRATE 63923717425 Active Mitch Urbina DO Active BACTRIM DS 800-160 MG ORAL TABLET 1 tab by mouth twice daily 201 10/19/09 BACTRIM DS 800-160 MG ORAL TABLET 628143 TRIMETHOPRIM-SULFAMETHOXAZOLE Inactive PROVIGIL 100 MG ORAL TABLET Take one by mouth daily 08/20/04 PROVIGIL 100 MG ORAL TABLET 933756 MODAFINIL Inactive FUROSEMIDE 40 MG ORAL TABLET 1 by mouth daily FUROSEMIDE 40 MG ORAL TABLET 886642 FUROSEMIDE Inactive KLOR-CON 20 MEQ ORAL PACKET Take one by mouth daily 09/10/08 KLOR- CON 20 MEQ ORAL PACKET 4605978 POTASSIUM CHLORIDE Inactive LISINOPRIL 5 MG ORAL TABLET 1 by mouth every day 11/17 LISINOPRIL 5 MG ORAL TABLET 595340 LISINOPRIL Inactive COLCRYS 0.6 MG ORAL TABLET 1 po q 6 hours prn gout pain COLCRYS 0.6 MG ORAL TABLET 980018 COLCHICINE Inactive JANUVIA 100 MG ORAL TABLET 1/2 by mouth every day 2011 JANUVIA 100 MG ORAL TABLET SITAGLIPTIN PHOSPHATE Inactive SIMVASTATIN 20 MG ORAL TABLET 1 tab daily at bedtime 2 SIMVASTATIN 20 MG ORAL TABLET 552791 SIMVASTATIN Inactive COUMADIN 6 MG ORAL TABLET 1 by mouth every other day COUMADIN 6 MG ORAL TABLET 523867 WARFARIN SODIUM Inactive COUMADIN 5 MG ORAL TABLET 1 by mouth every other day COUMADIN 5 MG ORAL TABLET 365079 WARFARIN SODIUM Inactive LISINOPRIL 20 MG ORAL TABLET 1 tab po at HS LISINOPRIL 20 MG ORAL TABLET 070961 LISINOPRIL Inactive LISINOPRIL-HYDROCHLOROTHIAZIDE 20-12.5 MG ORAL TABLET 1 tab by m outh daily LISINOPRIL-HYDROCHLOROTHIAZIDE 20-12.5 MG ORAL TABLET 021457 LISINOPRIL-HYDROCHLOROTHIAZIDE Inactive POLYTRIM 30186-3.1 UNIT/ML-% OPHTHALMIC SOLUTION 1 rui p in affected eye every 3 hours while awake x 7 days POLYTRIM 1000 0-0.1 UNIT/ML-% OPHTHALMIC SOLUTION 085079 POLYMYXIN B-TRIMETHOPRIM Inactive COUMADIN 4 MG ORAL TABLET 1 tablet daily COUMADIN 4 MG ORAL TABLET 896903 WARFARIN SODIUM Inactive CLONIDINE HCL 0.1 MG ORAL TABLET 1 po bid 7 days, then 1/2 t ab po bid 7 days CLONIDINE HCL 0.1 MG ORAL TABLET 234158 CLONIDIN E HCL Inactive ALLOPURINOL 300 MG ORAL TABLET Take 1 tablet by mouth daily 2012 ALLOPURINOL 300 MG ORAL TABLET 820293 ALLOPURINOL I nactive MECLIZINE HCL 25 MG ORAL TABLET 1 po tid 3 days, then 1/2 ta b tid 3 days MECLIZINE HCL 25 MG ORAL TABLET 617758 MECLIZINE HCL Inactive AMLODIPINE BESYLATE 5 MG ORAL TABLET 1 tablet by mouth daily 201 01/20/04 AMLODIPINE BESYLATE 5 MG ORAL TABLET 950351 AMLODIPINE BESYLATE Inactive KEFLEX 500 MG ORAL CAPSULE 1 po qid K EFLEX 500 MG ORAL CAPSULE 161473 CEPHALEXIN Inactive COLCRYS 0.6 MG ORAL TABLET 1 tab qid prn gout COLCRYS 0.6 MG ORAL TABLET 132880 COLCHICINE Inactive FAMOTIDINE 20 MG ORAL TABLET by mouth twice a day 2017 FAMOTIDINE 20 MG ORAL TABLET 780976 FAMOTIDINE Inactive LOVENOX 100 MG/ML SUBCUTANEOUS SOLUTION One injection twice a da y LOVENOX 100 MG/ML SUBCUTANEOUS SOLUTION 164169 ENOXAPAR IN SODIUM Inactive Vital Signs Date [...] Report: Basic Metabolic Panel - Chem istry potassium, serum 4.2 mmol/L 3.5-5.2 urea nitrogen, blood 29 mg/dL 7- creatinine, serum 1.24 mg/dL 0.60-1.30 chloride, serum 102 mmol/L 98-107 carbon dioxide, venous blood 28.9 mmol/L 21.0-32 .0 blood glucose 211 mg/dL 65-110 calcium, serum 10.6 mg/dL 8.5-10.1 sodium, serum 139 mmol/L 506-827 6749/08/07 sodium, serum 141 mmol/L 134-090 0439/08/07 urea nitrogen, blood 26 mg/dL 7-18 creatinine, [...] Stimulating Hormone (L), Pros ... - Chemistry urea nitrogen, blood 27 mg/dL 7-18 creatinine, serum 1.32 mg/dL 0.55-1.30 alanine aminotransferase (SGPT), serum 32 U/L 12-78 aspartate aminotransferase (SGOT), serum 27 U/L 15-37 calcium, serum 10.5 mg/dL 8.5-10.1 bilirubin, serum, total 0.70 mg/dL 0.00-1.00 TSH 2.49 m[iU]/mL 0.36-3.74 prostate specific antigen 3.14 ng/mL 0.00-4.00 sodium, serum 144 mmol/L 653-712 3406/06/12 carbon dioxide, venous blood 26.6 mmol/L 21.0-32 .0 potassium, serum 4.2 mmol/L 3.5-5.2 chloride, serum 105 mmol/L 98-107 blood glucose 192 mg/dL 65-110 Lab Report: Lipid Panel, HEPATIC PANEL, HGBA1C - Chemistry cholesterol, serum 136 mg/dL 266-835 0520/12/06 bilirubin, serum, total 0.80 mg/dL 0.00-1.00 hemoglobin A1C, blood, as % of total hemoglobin 6.4 % 4.3-6.0 triglyceride, serum, fasting 247 mg/dL 30-200 HDL cholesterol, serum 41 mg/dL 32-60 LDL cholesterol, serum 46 mg/dL 0-130 aspartate aminotransferase (SGOT), serum 22 U/L 15-37 alanine aminotransferase (SGPT), serum 30 U/L 12-78 Encounters Code Encounter Date Provider Facility CPT-84967 Level 3 Est. Patient 18:25:53 CDT Mitch luis [facility] CPT-74738 Level 3 Est. Patient 19:43:34 CDT Mitch luis [facility] CPT-32360 Level 4 Est. Patient 09:30:18 CDT Mitch luis [facility] CPT-44504 Level 3 Est. Patient 15:10:14 CDT Joe kamara [facility] CPT-90255 Level 3 Est. Patient 15:03:46 CDT Joe kamara [facility] CPT-62491 Level 3 Est. Patient 14:21:06 CDT Mitch luis [facility] CPT-22087 Level 3 Est. Patient 14:52:06 [facility] Patient 09:34:30 LITHOGRAPHIC PHOTOGRAPHER Mitch luis [facility]-82176 Level 3 Est. Patient 09:37:15 CDT Mitch Ambrose L janelle [facility]-68174 Level 3 Est. Patient 17:01:00 LITHOGRAPHIC PHOTOGRAPHER Mitch Ambrose L janelle [facility] CPT-17196 Level 3 Est. Patient 13:53:19 LITHOGRAPHIC PHOTOGRAPHER Mitch W L janelle [facility] CPT-13721 Level 3 Est. Patient 19:19:37 LITHOGRAPHIC PHOTOGRAPHER Mitch W L janelle [facility] CPT-40461 Level 3 Est. Patient 13:25:53 LITHOGRAPHIC PHOTOGRAPHER Tavo toure MD [facility]-71375 Level 3 Est. Patient 18:17:28 CDT Mitch luis [facility] CPT-41907 Level 3 Est. Patient 15:22:57 CDT Mitch W L janelle [facility]-35416 Level 3 Est. Patient 18:21:50 CDT Mitch Arnol L janelle [facility] CPT-01838 Level 3 Est. Patient 18:20:38 CDT Mitch Arnol L janelle [facility]-69370 Level 3 Est. Patient 15:37:55 CDT Mitch W L janelle [facility] CPT-13699 Level 2 Est. Patient 15:54:44 CDT Carmine benton MD [facility]-82590 Level 3 Est. Patient 21:46:01 LITHOGRAPHIC PHOTOGRAPHER Mitch W L janelle [facility]-49383 Level 3 Est. Patient 22:15:50 CDT Mitch W L janelle [facility] CPT-60870 Level 3 Est. Patient 10:48:15 CDT Mitch luis [facility] CPT-24683 Level 3 Est. Patient 23:20:57 CDT Tavo torue MD [facility] CPT-37582 Level 3 Est. Patient 16:26:13 CDT Mitch luis [facility] Procedures Code Procedure Name Date Entry Date Standard Desc ription CPT-JTINJ Asp/Joint Injection 18:47:02 CDT CPT-05736 Venipuncture Draw Fee 09:26:17 CDT CPT-02408 PT/INR - LAB USE ONLY 13:32:49 LITHOGRAPHIC PHOTOGRAPHER CPT-04498 Venipuncture Draw Fee 13:32:49 LITHOGRAPHIC PHOTOGRAPHER CPT-60442 PT/INR - LAB USE ONLY 10:34:49 LITHOGRAPHIC PHOTOGRAPHER CPT-95298 Venipuncture Draw Fee 10:34:48 LITHOGRAPHIC PHOTOGRAPHER CPT-59722 PT/INR - LAB USE ONLY 09:22:03 LITHOGRAPHIC PHOTOGRAPHER CPT-56901 Venipuncture Draw Fee 09:22:02 LITHOGRAPHIC PHOTOGRAPHER CPT-79077 Hemoccult IFOBT - LAB USE ONLY 10:27:22 CDT CPT-93921 Venipuncture Draw Fee 08:27:08 CDT CPT-43742 Liver Profile - LAB USE ONLY 08:27:07 CDT 2 CPT-01029 Microalbumin - LAB USE ONLY 08:27:07 CDT 20 25/05/09 CPT-82572 PT/INR - LAB USE ONLY 08:27:07 CDT CPT-06245 HGBA1C - LAB USE ONLY 08:27:07 CDT CPT-97434 CBC - LAB USE ONLY 08:27:07 CDT CPT-70784 Venipuncture Draw Fee 11:09:14 CDT CPT-31441 Venipuncture Draw Fee 08:32:21 LITHOGRAPHIC PHOTOGRAPHER CPT-55833 Venipuncture Draw Fee 09:38:56 LITHOGRAPHIC PHOTOGRAPHER CPT-82492 No Charge Offi Visit 21:36:07 CDT 1 CPT-32411 Venipuncture Draw Fee 10:13:28 LITHOGRAPHIC PHOTOGRAPHER CPT-44476 Venipuncture Draw Fee 08:31:11 CDT CPT-96629 Aspir/Inject Med Joint 18:17:28 CDT CPT-45687 Venipuncture Draw Fee 10:13:30 CDT CPT-50790 Venipuncture Draw Fee 08:31:43 LITHOGRAPHIC PHOTOGRAPHER CPT-JTINJ Joint Injection 18:34:50 CDT CPT-89101 Knee 3V 12:25:09 CDT CPT-85914 Venipuncture Draw Fee 12:15:57 CDT CPT-060 Medical Surveillance Exam 21:31:43 CDT 2011 CPT-56182 Venipuncture Draw Fee 08:32:05 LITHOGRAPHIC PHOTOGRAPHER CPT-OV Office Visit 18:19:06 CDT
--- OUTSIDE RECORDS SUMMARY | 2020-01-18 12:27 | XMS REPORT | Clinical Summary ---
Author Author Admin, Mitch Leon Organization [facility] Address Unknown Phone [...] of gastrointestinal tract REACTIVE HYPOGLYCEMIA 251.2 Active Mithc Urbina DO Hypoglycemia, unspecified GOUT, WRIST 274.9 Active Mitch Urbina DO Gout, unspecified LONG-TERM (CURRENT) USE OF ANTICOAGULANTS V58.61 Activ e GERALD Shrestha Long-term (current) use of anticoagulant s HEALTH MAINTENANCE EXAM V70.0 Active Mitch Meraz DO Routine general medical examination at a health care facility CORONARY HEART DISEASE 414.00 Active Mitch rUbina DO Coronary atherosclerosis of unspecified type of vessel, [place] or graft EDEMA 782.3 Active Mitch Urbina [...] 1 tablet by mouth daily AMLODIPINE BESYLATE 82326175860 Active Mitch Urbina DO Active MECLIZINE HCL 25 MG TAB 1 po tid 3 days, then 1/2 tab tid 3 days MECLIZINE HCL 28570612748 No Longer Active Corey SEGURA Active ALLOPURINOL 300 MG TABS Take 1 tablet by mouth daily 2 ALLOPURINOL 38205477941 No Longer Active Corey SEGURA Activ e CLONIDINE HCL 0.1 MG TABS 1 po bid 7 days, then 1/2 tab po b id 7 days CLONIDINE HCL 54144553021 No Longer Active Corey SEGURA Active COUMADIN 5 MG TABS 1 tab PO daily WARFARIN SODIUM 76664596029 Active Mitch Urbina DO Active COUMADIN 4 MG TABS 1 tablet daily WARFARIN SODI UM 43568571659 No Longer Active Corey SEGURA Active POLYTRIM 73460-7.1 UNIT/ML-% SOLN 1 drop in affected e ye every 3 hours while awake x 7 days POLYMYXIN B-TRIMETHOPRIM 33788049176 N o Longer Active Corey SEGURA Active LOSARTAN POTASSIUM-HCTZ 100-12.5 MG TABS 1 by mouth da [place] for high blood pressure LOSARTAN POTASSIUM-HCTZ 46165442531 Active Stephy Urbina DO Active LISINOPRIL-HYDROCHLOROTHIAZIDE 20-12.5 MG TABS 1 tab by mouth da rocky LISINOPRIL-HYDROCHLOROTHIAZIDE 45555804259 No Longer Active Mitch luis DO Active LISINOPRIL 20 MG TABS 1 tab po at HS LISINOPRIL 95975496356 No Longer Active Mitch Urbina DO Active COUMADIN 5 MG TABS 1 by mouth every other day WARFARIN SODIUM 54882644032 No Longer Active Mitch Urbina DO Active COUMADIN 6 MG TABS 1 by mouth every other day WARFARIN SODIUM 75341808659 No Longer Active Mitch Urbina DO Active COLCRYS 0.6 MG TABS 1 tab qid prn gout COLCHICINE 57751729239 Active Corey SEGURA Active SIMVASTATIN 40 MG TABS 1 tab daily at bedtime S IMVASTATIN 34741178559 Active Mitch Urbina DO Active SIMVASTATIN 20 MG TABS 1 tab daily at bedtime S IMVASTATIN 06594759881 No Longer Active Mitch Urbina DO Active LOVENOX 100 MG/ML SC SOLN One injection twice a day 09/15/15 ENOXAPARIN SODIUM 66034310707 No Longer Active Carmine Navarrete ctive JANUVIA 50 MG TABS Take one by mouth daily DIEGO GLIPTIN PHOSPHATE 22317160866 Active Domi Rivera MA Active JANUVIA 100 MG TABS 1/2 by mouth every day DIEGO GLIPTIN PHOSPHATE 08190093869 No Longer Active Bijal Segal RN Active METFORMIN HCL 500 MG TABS 2 by mouth twice daily METFORMIN HCL 93130337192 Active Mitch Urbina DO Active GLIMEPIRIDE 4 MG TABS 1 tab po bid GLIMEPIRIDE 592684 91765 Active Mitch Urbina DO Active COLCRYS 0.6 MG TABS 1 po q 6 hours prn gout pain 03/02 COLCHICINE 96505992752 No Longer Active Camila Reese Active LISINOPRIL 5 MG TABS 1 by mouth every day LISIN OPRIL 27013399176 No Longer Active Nguyenmolly Perez Active KLOR-CON 20 MEQ PACK Take one by mouth daily 8 POTASSIUM CHLORIDE 55116320952 No Longer Active Nguyen Perez Active FUROSEMIDE 40 MG TABS 1 by mouth daily FUROSEMI DE 96694381278 No Longer Active Nguyen Perez Active PROVIGIL 200 MG TABS 1/2 tab po q day MODAFINIL 83900 965470 Active Mitch Urbina DO Active PROVIGIL 100 MG TABS Take one by mouth daily MO DAFINIL 44820687360 No Longer Active Mitch Urbina DO Active BACTRIM DS 800-160 MG TAB 1 tab by mouth twice daily 2 TRIMETHOPRIM-SULFAMETHOXAZOLE 05052110400 No Longer Active Renan Hays MD Active FAMOTIDINE 20 MG TABS by mouth twice a day FAMOTI DINE 39532618592 Active Mitch W Carlitos DO Active ADULT ASPIRIN LOW STRENGTH 81 MG TBDP 1 by mouth every daily ASPIRIN 83994794991 Active Mitch Urbina DO Active METOPROLOL TARTRATE 50 MG TABS 1 by mouth twice daily METOPROLOL TARTRATE 00193054162 Active Curly Coker MD Active BACTRIM DS 800-160 MG TAB 1 tab by mouth twice daily 2 BACTRIM DS 800-160 MG TAB TRIMETHOPRIM-SULFAMETHOXAZOLE Inac tive PROVIGIL 100 MG TABS Take one by mouth daily 4 PROVIGIL 100 MG TABS 517305 MODAFINIL Inactive FUROSEMIDE 40 MG TABS 1 by mouth daily FU ROSEMIDE 40 MG TABS 345680 FUROSEMIDE Inactive KLOR-CON 20 MEQ PACK Take one by mouth daily 8 KLOR-CON 20 MEQ PACK 098016 POTASSIUM CHLORIDE Inactive LISINOPRIL 5 MG TABS 1 by mouth every day LISINOPRIL 5 MG TABS 471287 LISINOPRIL Inactive COLCRYS 0.6 MG TABS 1 po q 6 hours prn gout pain 03/02 COLCRYS 0.6 MG TABS 526634 COLCHICINE Inactive JANUVIA 100 MG TABS 1/2 by mouth every day JANUVI A 100 MG TABS SITAGLIPTIN PHOSPHATE Inactive SIMVASTATIN 20 MG TABS 1 tab daily at bedtime SIMVASTATIN 20 MG TABS 615215 SIMVASTATIN Inactive COUMADIN 6 MG TABS 1 by mouth every other day COUMADIN 6 MG TABS 168080 WARFARIN SODIUM Inactive COUMADIN 5 MG TABS 1 by mouth every other day COUMADIN 5 MG TABS 489603 WARFARIN SODIUM Inactive LISINOPRIL 20 MG TABS 1 tab po at HS KOKI NOPRIL 20 MG TABS 220462 LISINOPRIL Inactive LISINOPRIL-HYDROCHLOROTHIAZIDE 20-12.5 MG TABS 1 tab by mouth da rocky LISINOPRIL-HYDROCHLOROTHIAZIDE 20-12.5 MG TABS 542663 LISINOPRIL-HYDROCHLOROTHIAZIDE Inactive POLYTRIM 46837-9.1 UNIT/ML-% SOLN 1 drop in affected e ye every 3 hours while awake x 7 days POLYTRIM 45638-0.1 UNIT/ML-% SOLN 65068 7 POLYMYXIN B-TRIMETHOPRIM Inactive COUMADIN 4 MG TABS 1 tablet daily COUMADIN 4 MG TABS 642829 WARFARIN SODIUM Inactive CLONIDINE HCL 0.1 MG TABS 1 po bid 7 days, then 1/2 tab po b id 7 days CLONIDINE HCL 0.1 MG TABS 756677 CLONIDINE HCL I nactive ALLOPURINOL 300 MG TABS Take 1 tablet by mouth daily 2 ALLOPURINOL 300 MG TABS 371352 ALLOPURINOL Inactive MECLIZINE HCL 25 MG TAB 1 po tid 3 days, then 1/2 tab tid 3 days MECLIZINE HCL 25 MG TAB 230360 MECLIZINE HCL Inactive LOVENOX 100 MG/ML SC SOLN One injection twice a day 09/15/15 LOVENOX 100 MG/ML SC SOLN 124292 ENOXAPARIN SODIUM Inactive Vital Signs Date Name [...] Ag - Chemistry sodium, serum 141 mmol/L 622-198 3179/07/06 potassium, serum 4.4 mmol/L 3.5-5.2 chloride, serum [...] Panel - Chemistry sodium, serum 137 mmol/L 341-293 8277/11/14 potassium, serum 4.4 mmol/L 3.5-5.2 chloride, serum 100 mmol/L 98-107 carbon dioxide, venous blood 33.0 mmol/L 21.0-32 .0 blood glucose 181 mg/dL 65-110 urea nitrogen, blood 28 mg/dL 7-18 creatinine, serum 1.30 mg/dL 0.60-1.30 alanine aminotransferase (SGPT), serum 38 U/L - aspartate aminotransferase (SGOT), serum 34 U/L 15-37 calcium, serum 10.4 mg/dL 8.5-10.1 bilirubin, serum, total 0.90 mg/dL 0.00-1.00 hemoglobin A1C, blood, as % of total hemoglobin 8.0 % 4.3-6.0 cholesterol, serum 130 mg/dL 842-863 1687/11/14 triglyceride, serum, fasting 288 mg/dL 30-200 HDL cholesterol, serum 33 mg/dL 32-96 LDL cholesterol, serum 39 mg/dL 0-130 Lab Report: Comp. Metabolic Panel, HGBA1 C, Lipid Panel, Prothrombin Time - Chemistry sodium, serum 136 mmol/L 025-704 9081/12/02 potassium, serum 4.4 mmol/L 3.5-5.2 chloride, serum [...] 7.6 % 4.3-6.0 cholesterol, serum 117 mg/dL 409-650 5442/12/02 triglyceride, serum, fasting 226 mg/dL 30-200 HDL [...] 7.0 % 4.3-6.0 cholesterol, serum 120 mg/dL 801-025 1073/07/06 triglyceride, serum, fasting 186 mg/dL 30-200 HDL [...] 1.0-3.5 Encounters Code Encounter Date Provider Facility CPT-67109 Level 3 Est. Patient 09:37:15 CDT Mitch W L janelle DO [facility] CPT-50672 Level 3 Est. Patient 17:01:00 RECTIFICATION PRINTER Mitch W L janelle [facility] CPT-94676 Level 3 Est. Patient 13:53:19 RECTIFICATION PRINTER Mitch W L janelle [facility] CPT-76925 Level 3 Est. Patient 19:19:37 RECTIFICATION PRINTER Mitch W L janelle [facility] CPT-44285 Level 3 Est. Patient 13:25:53 RECTIFICATION PRINTER Tavo toure MD [facility] CPT-83753 Level 3 Est. Patient 18:17:28 CDT Mitch Ambrose L janelle [facility] CPT-52278 Level 3 Est. Patient 15:22:57 CDT Mitch Ambrose L janelle [facility] CPT-47687 Level 3 Est. Patient 18:21:50 CDT Mitch W L janelle [facility] CPT-42150 Level 3 Est. Patient 18:20:38 CDT Mitch W L janelle [facility] CPT-16106 Level 3 Est. Patient 15:37:55 CDT Mitch W L janelle [facility] CPT-60907 Level 2 Est. Patient 15:54:44 CDT Carmine benton MD [facility]-43866 Level 3 Est. Patient 21:46:01 RECTIFICATION PRINTER Mitch luis [facility] CPT-61678 Level 3 Est. Patient 22:15:50 CDT Mitch luis [facility] CPT-87243 Level 3 Est. Patient 10:48:15 CDT Mitch luis [facility] CPT-93562 Level 3 Est. Patient 23:20:57 CDT Tavo toure MD [facility] CPT-93926 Level 3 Est. Patient 16:26:13 CDT Mitch luis [facility] Procedures Code Procedure Name Date Entry Date Standard Desc ription CPT-39535 No Charge Offi Visit 21:36:07 CDT 1 CPT-68740 Venipuncture Draw Fee 10:13:28 RECTIFICATION PRINTER CPT-43777 Venipuncture Draw Fee 08:31:11 CDT CPT-21590 Aspir/Inject Med Joint 18:17:28 CDT CPT-43746 Venipuncture Draw Fee 10:13:30 CDT CPT-56562 Venipuncture Draw Fee 08:31:43 RECTIFICATION PRINTER CPT-JTINJ Joint Injection 18:34:50 CDT CPT-66616 Knee 3V 12:25:09 CDT CPT-40361 Venipuncture Draw Fee 12:15:57 CDT CPT-060 Medical Surveillance Exam 21:31:43 CDT 2011 CPT-69492 Venipuncture Draw Fee 08:32:05 RECTIFICATION PRINTER CPT-OV Office Visit 18:19:06 CDT
--- OUTSIDE RECORDS SUMMARY | 2020-01-18 12:27 | XMS REPORT | Clinical Summary ---
Author Author Admin, Mitch Leon Organization [facility] Address Unknown Phone Unavailable Allergies, Adverse [...] Coronary atherosclerosis of unspecified type of vessel, [place] or graft EDEMA 782.3 Resolved Mitch Urbina [...] ORAL TABLET 1 po BID GLIMEPIRID E 08125967214 Active Renee Oconnor LPN Active KEFLEX 500 MG ORAL CAPSULE 1 po qid CEPHALEXI N 66554046948 No Longer Active Mitch Urbina DO Active LOSARTAN POTASSIUM 100 MG ORAL TABLET 1 pill by mouth daily, for blood pressure LOSARTAN POTASSIUM 41952194024 Active Ana Wallace Active AMLODIPINE BESYLATE 5 MG ORAL TABLET 1 tablet by mouth daily 201 01/20/04 AMLODIPINE BESYLATE 26092820647 No Longer Active Joe fulton APRN Active MITIGARE 0.6 MG ORAL CAPSULE 2 capsules at onset of go ut pain, then take one capsule at 1 hour if symptoms persist. COLCHICINE 59 875708087 Active Mitch Urbina DO Active COUMADIN 1 MG ORAL TABLET 2 tabs orally daily with the 5mg tab to equal 7mg daily WARFARIN SODIUM 30070881530 Active Ana Wallace Active COLCRYS 0.6 MG ORAL TABLET 1 tab qid prn gout C OLCHICINE 51693685156 Active Norma Cazares Active INVOKANA 100 MG ORAL TABLET 1 tablet orally daily CANAGLIFLOZIN 53711267657 Active Mitch Urbina DO Active MINOXIDIL 2.5 MG ORAL TABLET 1 tablet daily for high blood press ure MINOXIDIL 55803930170 Active Mitch Urbina DO Active MECLIZINE HCL 25 MG ORAL TABLET 1 po tid 3 days, then 1/2 ta b tid 3 days MECLIZINE HCL 00943823312 No Longer Active Corey SEGURA Active ALLOPURINOL 300 MG ORAL TABLET Take 1 tablet by mouth daily 2012 ALLOPURINOL 90885895191 No Longer Active Corey SEGURA Active CLONIDINE HCL 0.1 MG ORAL TABLET 1 po bid 7 days, then 1/2 t ab po bid 7 days CLONIDINE HCL 55447307970 No Longer Active Corey SEGURA Active COUMADIN 5 MG ORAL TABLET 1 tab PO daily WARFAR IN SODIUM 17956817940 Active Mitch Urbina DO Active COUMADIN 4 MG ORAL TABLET 1 tablet daily WARFAR IN SODIUM 09043139313 No Longer Active Corey SEGURA Active POLYTRIM 36613-9.1 UNIT/ML-% OPHTHALMIC SOLUTION 1 rui p in affected eye every 3 hours while awake x 7 days POLYMYXIN B-TRIMETHOP RIM 81472009898 No Longer Active Corey SEGURA Active LOSARTAN POTASSIUM-HCTZ 100-12.5 MG ORAL TABLET 1 by m outh daily for high blood pressure LOSARTAN POTASSIUM-HCTZ 01530430394 No Longer A ctive Mitch Urbina DO Active LISINOPRIL-HYDROCHLOROTHIAZIDE 20-12.5 MG ORAL TABLET 1 tab by m outh daily LISINOPRIL-HYDROCHLOROTHIAZIDE 17579455093 No Longer Active Mitch Urbina DO Active LISINOPRIL 20 MG ORAL TABLET 1 tab po at HS LIS INOPRIL 95455747715 No Longer Active Mitch Urbina DO Active COUMADIN 5 MG ORAL TABLET 1 by mouth every other day 2 WARFARIN SODIUM 09843856837 No Longer Active Mitch Urbina DO Active COUMADIN 6 MG ORAL TABLET 1 by mouth every other day 2 WARFARIN SODIUM 38206150549 No Longer Active Mitch Urbina DO Active SIMVASTATIN 40 MG ORAL TABLET 1 tab daily at bedtime SIMVASTATIN 04364199847 Active Mitch Urbina DO Active SIMVASTATIN 20 MG ORAL TABLET 1 tab daily at bedtime 2 SIMVASTATIN 81725539158 No Longer Active Mitch Urbina DO Active LOVENOX 100 MG/ML SUBCUTANEOUS SOLUTION One injection twice a da y ENOXAPARIN SODIUM 72689683505 No Longer Active Carmine Yusuf MD Active JANUVIA 50 MG ORAL TABLET Take one by mouth daily SITAGLIPTIN PHOSPHATE 41892018056 Active Mitch Urbina DO Active JANUVIA 100 MG ORAL TABLET 1/2 by mouth every day 2011 SITAGLIPTIN PHOSPHATE 18198937326 No Longer Active Bijal Segal RN Acti ve METFORMIN HCL 500 MG ORAL TABLET 2 by mouth twice daily METFORMIN HCL 86655386414 Active Mitch Urbina DO Active COLCRYS 0.6 MG ORAL TABLET 1 po q 6 hours prn gout pain COLCHICINE 21198759150 No Longer Active Camila Reese Active LISINOPRIL 5 MG ORAL TABLET 1 by mouth every day 11/17 LISINOPRIL 51038487199 No Longer Active Nguyen Ana Active KLOR-CON 20 MEQ ORAL PACKET Take one by mouth daily 09/10/08 POTASSIUM CHLORIDE 11585509449 No Longer Active Nguyen Coekman Active FUROSEMIDE 40 MG ORAL TABLET 1 by mouth daily F UROSEMIDE 98155461731 No Longer Active Nguyen Perez Active PROVIGIL 200 MG ORAL TABLET 1/2 tab po q day MODA FINIL 22147214196 Active Mitch Urbina DO Active PROVIGIL 100 MG ORAL TABLET Take one by mouth daily 08/20/04 MODAFINIL 50725171029 No Longer Active Mitch Urbina DO Active BACTRIM DS 800-160 MG ORAL TABLET 1 tab by mouth twice daily 201 10/19/09 TRIMETHOPRIM-SULFAMETHOXAZOLE 01773308952 No Longer Active Elian Hays MD Active FAMOTIDINE 20 MG ORAL TABLET by mouth twice a day FAMOTIDINE 14017142765 Active Mitch Urbina DO Active ADULT ASPIRIN LOW STRENGTH 81 MG ORAL TABLET DISINTEGR ATING 1 by mouth every daily ASPIRIN 57443888479 Active Mitch Urbina DO Ac tive METOPROLOL TARTRATE 50 MG ORAL TABLET 1 by mouth twice daily METOPROLOL TARTRATE 07705298023 Active Mitch Urbina DO Active BACTRIM DS 800-160 MG ORAL TABLET 1 tab by mouth twice daily 201 10/19/09 BACTRIM DS 800-160 MG ORAL TABLET 968807 TRIMETHOPRIM-SULFAMETHOXAZOLE Inactive PROVIGIL 100 MG ORAL TABLET Take one by mouth daily 08/20/04 PROVIGIL 100 MG ORAL TABLET 395409 MODAFINIL Inactive FUROSEMIDE 40 MG ORAL TABLET 1 by mouth daily FUROSEMIDE 40 MG ORAL TABLET 170780 FUROSEMIDE Inactive KLOR-CON 20 MEQ ORAL PACKET Take one by mouth daily 09/10/08 KLOR- CON 20 MEQ ORAL PACKET 5226173 POTASSIUM CHLORIDE Inactive LISINOPRIL 5 MG ORAL TABLET 1 by mouth every day 11/17 LISINOPRIL 5 MG ORAL TABLET 972002 LISINOPRIL Inactive COLCRYS 0.6 MG ORAL TABLET 1 po q 6 hours prn gout pain COLCRYS 0.6 MG ORAL TABLET 015268 COLCHICINE Inactive JANUVIA 100 MG ORAL TABLET 1/2 by mouth every day 2011 JANUVIA 100 MG ORAL TABLET SITAGLIPTIN PHOSPHATE Inactive SIMVASTATIN 20 MG ORAL TABLET 1 tab daily at bedtime 2 SIMVASTATIN 20 MG ORAL TABLET 275624 SIMVASTATIN Inactive COUMADIN 6 MG ORAL TABLET 1 by mouth every other day 2 COUMADIN 6 MG ORAL TABLET 505115 WARFARIN SODIUM Inactive COUMADIN 5 MG ORAL TABLET 1 by mouth every other day 2 COUMADIN 5 MG ORAL TABLET 602526 WARFARIN SODIUM Inactive LISINOPRIL 20 MG ORAL TABLET 1 tab po at HS LISINOPRIL 20 MG ORAL TABLET 422555 LISINOPRIL Inactive LISINOPRIL-HYDROCHLOROTHIAZIDE 20-12.5 MG ORAL TABLET 1 tab by m outh daily LISINOPRIL-HYDROCHLOROTHIAZIDE 20-12.5 MG ORAL TABLET 191738 LISINOPRIL-HYDROCHLOROTHIAZIDE Inactive POLYTRIM 46623-1.1 UNIT/ML-% OPHTHALMIC SOLUTION 1 rui p in affected eye every 3 hours while awake x 7 days POLYTRIM 1000 0-0.1 UNIT/ML-% OPHTHALMIC SOLUTION 369314 POLYMYXIN B-TRIMETHOPRIM Inactive COUMADIN 4 MG ORAL TABLET 1 tablet daily COUMADIN 4 MG ORAL TABLET 051778 WARFARIN SODIUM Inactive CLONIDINE HCL 0.1 MG ORAL TABLET 1 po bid 7 days, then 1/2 t ab po bid 7 days CLONIDINE HCL 0.1 MG ORAL TABLET 050171 CLONIDIN E HCL Inactive ALLOPURINOL 300 MG ORAL TABLET Take 1 tablet by mouth daily 2012 ALLOPURINOL 300 MG ORAL TABLET 193134 ALLOPURINOL I nactive MECLIZINE HCL 25 MG ORAL TABLET 1 po tid 3 days, then 1/2 ta b tid 3 days MECLIZINE HCL 25 MG ORAL TABLET 753984 MECLIZINE HCL Inactive AMLODIPINE BESYLATE 5 MG ORAL TABLET 1 tablet by mouth daily 201 01/20/04 AMLODIPINE BESYLATE 5 MG ORAL TABLET 223492 AMLODIPINE BESYLATE Inactive KEFLEX 500 MG ORAL CAPSULE 1 po qid K EFLEX 500 MG ORAL CAPSULE 246215 CEPHALEXIN Inactive LOVENOX 100 MG/ML SUBCUTANEOUS SOLUTION One injection twice a da y LOVENOX 100 MG/ML SUBCUTANEOUS SOLUTION 427252 ENOXAPAR IN SODIUM Inactive Vital Signs Date [...] - Chem istry sodium, serum 139 mmol/L 999-516 4542/07/17 potassium, serum 4.2 mmol/L 3.5-5.2 chloride, serum 102 mmol/L 98-107 carbon dioxide, venous blood 28.9 mmol/L 21.0-32 .0 blood glucose 211 mg/dL 65-110 calcium, serum 10.6 mg/dL 8.5-10.1 urea nitrogen, blood 29 mg/dL 7-18 creatinine, serum 1.24 mg/dL 0.60-1.30 sodium, serum 141 mmol/L 841-148 9445/08/07 potassium, serum 4.5 mmol/L 3.5-5.2 chloride, serum [...] ... - Chemistry sodium, serum 144 mmol/L 046-379 6804/06/12 carbon dioxide, venous blood 26.6 mmol/L 21.0-32 [...] HGBA1C - Chemistry cholesterol, serum 136 mg/dL 228-619 1552/12/06 triglyceride, serum, fasting 247 mg/dL 30-200 HDL cholesterol, serum 41 mg/dL 32-60 LDL cholesterol, serum 46 mg/dL 0-130 aspartate aminotransferase (SGOT), serum 22 U/L 15-37 alanine aminotransferase (SGPT), serum 30 U/L 12-78 bilirubin, serum, total 0.80 mg/dL 0.00-1.00 hemoglobin A1C, blood, as % of total hemoglobin 6.4 % 4.3-6.0 Encounters Code Encounter Date Provider Facility CPT-53176 Level 3 Est. Patient 18:25:53 CDT Mitch luis [facility] CPT-74451 Level 3 Est. Patient 19:43:34 CDT Mitch luis [facility] CPT-98578 Level 4 Est. Patient 09:30:18 CDT Mitch luis [facility] CPT-34758 Level 3 Est. Patient 15:10:14 CDT Joe kamara [facility] CPT-50482 Level 3 Est. Patient 15:03:46 CDT Joe kamara [facility] CPT-79629 Level 3 Est. Patient 14:21:06 CDT Mitch luis [facility] CPT-73646 Level 3 Est. Patient 14:52:06 CDT Joe kamara [facility] CPT-75795 Level 3 Est. Patient 09:34:30 CIVILIAN TECHNICIAN Mitch luis [facility] CPT-90891 Level 3 Est. Patient 09:37:15 CDT Mitch luis [facility] CPT-09153 Level 3 Est. Patient 17:01:00 CIVILIAN TECHNICIAN Mitch luis [facility] CPT-20243 Level 3 Est. Patient 13:53:19 CIVILIAN TECHNICIAN Mitch luis [facility] CPT-92913 Level 3 Est. Patient 19:19:37 CIVILIAN TECHNICIAN Mithc luis [facility] CPT-77301 Level 3 Est. Patient 13:25:53 CIVILIAN TECHNICIAN Tavo toure MD [facility] CPT-44942 Level 3 Est. Patient 18:17:28 CDT Mitch luis [facility] CPT-01184 Level 3 Est. Patient 15:22:57 CDT Mitch luis [facility] CPT-30797 Level 3 Est. Patient 18:21:50 CDT Mitch W L janelle [facility] CPT-73895 Level 3 Est. Patient 18:20:38 CDT Mitch Ambrose L janelle [facility] CPT-81449 Level 3 Est. Patient 15:37:55 CDT Mitch luis [facility] CPT-56649 Level 2 Est. Patient 15:54:44 CDT Carmine benton MD [facility] CPT-21013 Level 3 Est. Patient 21:46:01 CIVILIAN TECHNICIAN Mitch luis [facility] CPT-06987 Level 3 Est. Patient 22:15:50 CDT Mitch luis [facility] CPT-21344 Level 3 Est. Patient 10:48:15 CDT Mitch luis [facility] CPT-55173 Level 3 Est. Patient 23:20:57 CDT Tavo toure MD [facility] CPT-97467 Level 3 Est. Patient 16:26:13 CDT Mitch Arnol luis [facility] Procedures Code Procedure Name Date Entry Date Standard Desc ription CPT-76906 Venipuncture Draw Fee 09:26:17 CDT CPT-30541 PT/INR - LAB USE ONLY 13:32:49 CIVILIAN TECHNICIAN CPT-92403 Venipuncture Draw Fee 13:32:49 CIVILIAN TECHNICIAN CPT-53189 PT/INR - LAB USE ONLY 10:34:49 CIVILIAN TECHNICIAN CPT-56083 Venipuncture Draw Fee 10:34:48 CIVILIAN TECHNICIAN CPT-25949 PT/INR - LAB USE ONLY 09:22:03 CIVILIAN TECHNICIAN CPT-37764 Venipuncture Draw Fee 09:22:02 CIVILIAN TECHNICIAN CPT-14799 Hemoccult IFOBT - LAB USE ONLY 10:27:22 CDT CPT-25678 Venipuncture Draw Fee 08:27:08 CDT CPT-57348 Liver Profile - LAB USE ONLY 08:27:07 CDT 2 CPT-57638 Microalbumin - LAB USE ONLY 08:27:07 CDT 20 25/05/09 CPT-67055 PT/INR - LAB USE ONLY 08:27:07 CDT CPT-65551 HGBA1C - LAB USE ONLY 08:27:07 CDT CPT-33255 CBC - LAB USE ONLY 08:27:07 CDT CPT-81487 Venipuncture Draw Fee 11:09:14 CDT CPT-44965 Venipuncture Draw Fee 08:32:21 CIVILIAN TECHNICIAN CPT-97052 Venipuncture Draw Fee 09:38:56 CIVILIAN TECHNICIAN CPT-96846 No Charge Offi Visit 21:36:07 CDT 1 CPT-53442 Venipuncture Draw Fee 10:13:28 CIVILIAN TECHNICIAN CPT-33394 Venipuncture Draw Fee 08:31:11 CDT CPT-57010 Aspir/Inject Med Joint 18:17:28 CDT CPT-83622 Venipuncture Draw Fee 10:13:30 CDT CPT-12230 Venipuncture Draw Fee 08:31:43 CIVILIAN TECHNICIAN CPT-JTINJ Joint Injection 18:34:50 CDT CPT-04162 Knee 3V 12:25:09 CDT CPT-67313 Venipuncture Draw Fee 12:15:57 CDT CPT-060 Medical Surveillance Exam 21:31:43 CDT 2011 CPT-01103 Venipuncture Draw Fee 08:32:05 CIVILIAN TECHNICIAN CPT-OV Office Visit 18:19:06 CDT
--- OUTSIDE RECORDS SUMMARY | 2020-01-18 12:27 | XMS REPORT | Clinical Summary ---
Author Author Admin, Mitch Leon Organization [facility] Address Unknown Phone Unavailable Allergies, Adverse Reactions, [...] Coronary atherosclerosis of unspecified type of vessel, [place] or graft EDEMA 782.3 Resolved Mitch [...] 1 tablet by mouth daily AMLODIPINE BESYLATE 66846108443 No Longer Active Joe Williamson APRN Active MITIGARE 0.6 MG ORAL CAPS 2 capsules at onset of gout pain, then take one capsule at 1 hour if symptoms persist. COLCHICINE 59 308813398 Active Mitch Urbina DO Active COUMADIN 1 MG TAB 2 tabs orally daily with the 5mg tab to equal 7mg daily WARFARIN SODIUM 33318248575 Active Mitch Urbina DO Active COLCRYS 0.6 MG TABS 1 tab qid prn gout COLCHICINE 64000757510 Active Norma Sage Active INVOKANA 100 MG ORAL TABS 1 tablet orally daily CANAGLIFLOZIN 45901506909 Active Mitch Urbina DO Active MINOXIDIL 2.5 MG TABS 1 tablet daily for high blood pressure 10/23 MINOXIDIL 81116352186 Active Mitch Urbina DO Active MECLIZINE HCL 25 MG TAB 1 po tid 3 days, then 1/2 tab tid 3 days MECLIZINE HCL 79715457722 No Longer Active Corey SEGURA Active ALLOPURINOL 300 MG TABS Take 1 tablet by mouth daily 2 ALLOPURINOL 22133957044 No Longer Active Corey SEGURA Activ e CLONIDINE HCL 0.1 MG TABS 1 po bid 7 days, then 1/2 tab po b id 7 days CLONIDINE HCL 05299158721 No Longer Active Corey SEGURA Active COUMADIN 5 MG TABS 1 tab PO daily WARFARIN SODIUM 70245155336 Active Mitch Urbina DO Active COUMADIN 4 MG TABS 1 tablet daily WARFARIN SODI UM 66094196286 No Longer Active Corey SEGURA Active POLYTRIM 34900-0.1 UNIT/ML-% SOLN 1 drop in affected e ye every 3 hours while awake x 7 days POLYMYXIN B-TRIMETHOPRIM 59476578915 N o Longer Active Corey SEGURA Active LOSARTAN POTASSIUM-HCTZ 100-12.5 MG TABS 1 by mouth da rocky for high blood pressure LOSARTAN POTASSIUM-HCTZ 22615765172 Active Stephy Urbina DO Active LISINOPRIL-HYDROCHLOROTHIAZIDE 20-12.5 MG TABS 1 tab by mouth da rocky LISINOPRIL-HYDROCHLOROTHIAZIDE 94178378759 No Longer Active Mitch luis DO Active LISINOPRIL 20 MG TABS 1 tab po at HS LISINOPRIL 03201758649 No Longer Active Mitch Urbina DO Active COUMADIN 5 MG TABS 1 by mouth every other day WARFARIN SODIUM 90007842648 No Longer Active Mitch Urbina DO Active COUMADIN 6 MG TABS 1 by mouth every other day WARFARIN SODIUM 90309067469 No Longer Active Mitch Urbina DO Active SIMVASTATIN 40 MG TABS 1 tab daily at bedtime S IMVASTATIN 73008125870 Active Mitch Urbina DO Active SIMVASTATIN 20 MG TABS 1 tab daily at bedtime S IMVASTATIN 04420771840 No Longer Active Mitch Urbina DO Active LOVENOX 100 MG/ML SC SOLN One injection twice a day 09/15/15 ENOXAPARIN SODIUM 00925443205 No Longer Active Carmine Navarrete ctive JANUVIA 50 MG TABS Take one by mouth daily DIEGO GLIPTIN PHOSPHATE 86992558873 Active Mitch Urbina DO Active JANUVIA 100 MG TABS 1/2 by mouth every day DIEGO GLIPTIN PHOSPHATE 08883695061 No Longer Active Bijal Segal RN Active METFORMIN HCL 500 MG TABS 2 by mouth twice daily METFORMIN HCL 73601440955 Active Mitch Urbina DO Active GLIMEPIRIDE 4 MG TABS 1 tab po bid GLIMEPIRIDE 784943 55471 Active Mitch Urbina DO Active COLCRYS 0.6 MG TABS 1 po q 6 hours prn gout pain 03/02 COLCHICINE 25928849663 No Longer Active Camila Reese Active LISINOPRIL 5 MG TABS 1 by mouth every day LISIN OPRIL 34839721435 No Longer Active Nguyen Perez Active KLOR-CON 20 MEQ PACK Take one by mouth daily 8 POTASSIUM CHLORIDE 97582527821 No Longer Active Nguyen Perez Active FUROSEMIDE 40 MG TABS 1 by mouth daily FUROSEMI DE 70772848872 No Longer Active Nguyen Perez Active PROVIGIL 200 MG TABS 1/2 tab po q day MODAFINIL 10437 961563 Active Mitch Urbina DO Active PROVIGIL 100 MG TABS Take one by mouth daily MO DAFINIL 45207800221 No Longer Active Mitch Urbina DO Active BACTRIM DS 800-160 MG TAB 1 tab by mouth twice daily 2 TRIMETHOPRIM-SULFAMETHOXAZOLE 92747853911 No Longer Active Renan Hays MD Active FAMOTIDINE 20 MG TABS by mouth twice a day FAMOTI DINE 08301524255 Active Mitch Urbina DO Active ADULT ASPIRIN LOW STRENGTH 81 MG TBDP 1 by mouth every daily ASPIRIN 51602488876 Active Mitch Urbina DO Active METOPROLOL TARTRATE 50 MG TABS 1 by mouth twice daily METOPROLOL TARTRATE 80100668298 Active Mitch Urbina DO Active BACTRIM DS 800-160 MG TAB 1 tab by mouth twice daily 2 BACTRIM DS 800-160 MG TAB 597755 TRIMETHOPRIM-SULFAMETHOXAZOLE Inac tive PROVIGIL 100 MG TABS Take one by mouth daily 4 PROVIGIL 100 MG TABS 452706 MODAFINIL Inactive FUROSEMIDE 40 MG TABS 1 by mouth daily FU ROSEMIDE 40 MG TABS 765058 FUROSEMIDE Inactive KLOR-CON 20 MEQ PACK Take one by mouth daily 8 KLOR-CON 20 MEQ PACK 6899890 POTASSIUM CHLORIDE Inactive LISINOPRIL 5 MG TABS 1 by mouth every day LISINOPRIL 5 MG TABS 203238 LISINOPRIL Inactive COLCRYS 0.6 MG TABS 1 po q 6 hours prn gout pain 03/02 COLCRYS 0.6 MG TABS 116038 COLCHICINE Inactive JANUVIA 100 MG TABS 1/2 by mouth every day JANUVI A 100 MG TABS SITAGLIPTIN PHOSPHATE Inactive SIMVASTATIN 20 MG TABS 1 tab daily at bedtime SIMVASTATIN 20 MG TABS 092203 SIMVASTATIN Inactive COUMADIN 6 MG TABS 1 by mouth every other day COUMADIN 6 MG TABS 720298 WARFARIN SODIUM Inactive COUMADIN 5 MG TABS 1 by mouth every other day COUMADIN 5 MG TABS 432774 WARFARIN SODIUM Inactive LISINOPRIL 20 MG TABS 1 tab po at HS KOKI NOPRIL 20 MG TABS 253488 LISINOPRIL Inactive LISINOPRIL-HYDROCHLOROTHIAZIDE 20-12.5 MG TABS 1 tab by mouth da rocky LISINOPRIL-HYDROCHLOROTHIAZIDE 20-12.5 MG TABS 576585 LISINOPRIL-HYDROCHLOROTHIAZIDE Inactive POLYTRIM 98280-3.1 UNIT/ML-% SOLN 1 drop in affected e ye every 3 hours while awake x 7 days POLYTRIM 55171-3.1 UNIT/ML-% SOLN 77069 7 POLYMYXIN B-TRIMETHOPRIM Inactive COUMADIN 4 MG TABS 1 tablet daily COUMADIN 4 MG TABS 403803 WARFARIN SODIUM Inactive CLONIDINE HCL 0.1 MG TABS 1 po bid 7 days, then 1/2 tab po b id 7 days CLONIDINE HCL 0.1 MG TABS 904670 CLONIDINE HCL I nactive ALLOPURINOL 300 MG TABS Take 1 tablet by mouth daily 2 ALLOPURINOL 300 MG TABS 685871 ALLOPURINOL Inactive MECLIZINE HCL 25 MG TAB 1 po tid 3 days, then 1/2 tab tid 3 days MECLIZINE HCL 25 MG TAB 328278 MECLIZINE HCL Inactive AMLODIPINE BESYLATE 5 MG TABS 1 tablet by mouth daily AMLODIPINE BESYLATE 5 MG TABS 538278 AMLODIPINE BESYLATE Inactive LOVENOX 100 MG/ML SC SOLN One injection twice a day 09/15/15 LOVENOX 100 MG/ML SC SOLN 718900 ENOXAPARIN SODIUM Inactive Vital Signs Date Name Value Unit Range Description blood pressure, diastolic 63 mm[Hg] BP mane [...] Range Description Chart Maintenance: hemoccult added to [facility] - Chemistry occult blood, stool (E&M) Positive Lab Report: Basic Metabolic Panel - Chem istry sodium, serum 139 mmol/L 219-870 1880/07/17 potassium, serum 4.2 mmol/L 3.5-5.2 chloride, serum [...] ... - Chemistry sodium, serum 144 mmol/L 081-108 5220/06/12 carbon dioxide, venous blood 26.6 mmol/L 21.0-32 [...] CBC - Chemistry cholesterol, serum 136 mg/dL 537-773 2824/08/09 triglyceride, serum, fasting 187 mg/dL 30-200 HDL [...] 1.0-3.5 Encounters Code Encounter Date Provider Facility CPT-60957 Level 4 Est. Patient 09:30:18 CDT Mitch luis [facility] CPT-84697 Level 3 Est. Patient 15:10:[address] [facility] CPT-77469 Level 3 Est. Patient 15:03:[address] [facility] CPT-86944 Level 3 Est. Patient 14:21:06 CDT Mitch luis DO -96542 Level 3 Est. Patient 14:52:06 CDT Joe kamara APRN [facility] CPT-60247 Level 3 Est. Patient 09:34:30 ACCOUNT SUPPORT MANAGER Mitch W L ee [facility]-56525 Level 3 Est. Patient 09:37:15 CDT Mitch W L ee [facility]-96397 Level 3 Est. Patient 17:01:00 ACCOUNT SUPPORT MANAGER Mitch W L ee DO [facility] CPT-99347 Level 3 Est. Patient 13:53:19 ACCOUNT SUPPORT MANAGER Mitch W L ee [facility] CPT-64831 Level 3 Est. Patient 19:19:37 ACCOUNT SUPPORT MANAGER Mitch W L ee [facility] CPT-19146 Level 3 Est. Patient 13:25:53 ACCOUNT SUPPORT MANAGER Tavo toure MD [facility]-21077 Level 3 Est. Patient 18:17:28 CDT Mitch W L ee [facility] CPT-62708 Level 3 Est. Patient 15:22:57 CDT Mitch W L ee [facility]-47894 Level 3 Est. Patient 18:21:50 CDT Mitch W L ee [facility] CPT-68538 Level 3 Est. Patient 18:20:38 CDT Mitch W L ee [facility] CPT-70052 Level 3 Est. Patient 15:37:55 CDT Mitch W L ee [facility] CPT-88173 Level 2 Est. Patient 15:54:44 CDT Carmine benton MD -25666 Level 3 Est. Patient 21:46:01 ACCOUNT SUPPORT MANAGER Mitch W L ee [facility] CPT-08634 Level 3 Est. Patient 22:15:50 CDT Mitch W L ee [facility] CPT-97803 Level 3 Est. Patient 10:48:15 CDT Mitch luis DO [facility] CPT-59612 Level 3 Est. Patient 23:20:57 CDT Tavo toure MD [facility] CPT-89082 Level 3 Est. Patient 16:26:13 CDT Mitch luis [facility] Procedures Code Procedure Name Date Entry Date Standard Desc ription CPT-29247 Venipuncture Draw Fee 09:26:17 CDT CPT-19480 PT/INR - LAB USE ONLY 13:32:49 ACCOUNT SUPPORT MANAGER CPT-38479 Venipuncture Draw Fee 13:32:49 ACCOUNT SUPPORT MANAGER CPT-16976 PT/INR - LAB USE ONLY 10:34:49 ACCOUNT SUPPORT MANAGER CPT-91755 Venipuncture Draw Fee 10:34:48 ACCOUNT SUPPORT MANAGER CPT-30490 PT/INR - LAB USE ONLY 09:22:03 ACCOUNT SUPPORT MANAGER CPT-07913 Venipuncture Draw Fee 09:22:02 ACCOUNT SUPPORT MANAGER CPT-11156 Hemoccult IFOBT - LAB USE ONLY 10:27:22 CDT CPT-12870 Venipuncture Draw Fee 08:27:08 CDT CPT-01224 Liver Profile - LAB USE ONLY 08:27:07 CDT 2 CPT-42830 Microalbumin - LAB USE ONLY 08:27:07 CDT 20 25/05/09 CPT-18194 PT/INR - LAB USE ONLY 08:27:07 CDT CPT-70869 HGBA1C - LAB USE ONLY 08:27:07 CDT CPT-76087 CBC - LAB USE ONLY 08:27:07 CDT CPT-05957 Venipuncture Draw Fee 11:09:14 CDT CPT-91756 Venipuncture Draw Fee 08:32:21 ACCOUNT SUPPORT MANAGER CPT-09047 Venipuncture Draw Fee 09:38:56 ACCOUNT SUPPORT MANAGER CPT-93150 No Charge Offi Visit 21:36:07 CDT 1 CPT-84405 Venipuncture Draw Fee 10:13:28 ACCOUNT SUPPORT MANAGER CPT-92189 Venipuncture Draw Fee 08:31:11 CDT CPT-34806 Aspir/Inject Med Joint 18:17:28 CDT CPT-95448 Venipuncture Draw Fee 10:13:30 CDT CPT-81975 Venipuncture Draw Fee 08:31:43 ACCOUNT SUPPORT MANAGER CPT-JTINJ Joint Injection 18:34:50 CDT CPT-68117 Knee 3V 12:25:09 CDT CPT-91903 Venipuncture Draw Fee 12:15:57 CDT CPT-060 Medical Surveillance Exam 21:31:43 CDT 2011 CPT-76190 Venipuncture Draw Fee 08:32:05 ACCOUNT SUPPORT MANAGER CPT-OV Office Visit 18:19:06 CDT
--- OUTSIDE RECORDS SUMMARY | 2020-01-18 12:27 | XMS REPORT | Clinical Summary ---
Author Author Admin, Mitch Leon Organization [facility] Address Unknown Phone Unavailable Allergies, Adverse Reactions, [...] Coronary atherosclerosis of unspecified type of vessel, [place] or graft EDEMA 782.3 Resolved Mitch [...] tab to equal 7mg daily WARFARIN SODIUM 45317229419 Active Mitch Urbina DO Active COLCRYS 0.6 MG TABS 1 tab qid prn gout COLCHICINE 94106845662 Active Kathie Juan RPT,RMA Active INVOKANA 100 MG ORAL TABS 1 tablet orally daily CANAGLIFLOZIN 83464663874 Active Mitch Urbina DO Active MINOXIDIL 2.5 MG TABS 1 tablet daily for high blood pressure 10/23 MINOXIDIL 65567564897 Active Domi Rivera MA Active AMLODIPINE BESYLATE 5 MG TABS 1 tablet by mouth daily AMLODIPINE BESYLATE 71137678889 Active Mitch Urbina DO Active MECLIZINE HCL 25 MG TAB 1 po tid 3 days, then 1/2 tab tid 3 days MECLIZINE HCL 90343290625 No Longer Active Corey SEGURA Active ALLOPURINOL 300 MG TABS Take 1 tablet by mouth daily 2 ALLOPURINOL 11989760821 No Longer Active Corey SEGURA Activ e CLONIDINE HCL 0.1 MG TABS 1 po bid 7 days, then 1/2 tab po b id 7 days CLONIDINE HCL 49450535334 No Longer Active Corey SEGURA Active COUMADIN 5 MG TABS 1 tab PO daily WARFARIN SODIUM 47514139797 Active Mitch Urbina DO Active COUMADIN 4 MG TABS 1 tablet daily WARFARIN SODI UM 99050943246 No Longer Active Corey SEGURA Active POLYTRIM 21039-2.1 UNIT/ML-% SOLN 1 drop in affected e ye every 3 hours while awake x 7 days POLYMYXIN B-TRIMETHOPRIM 21476141701 N o Longer Active Corey SEGURA Active LOSARTAN POTASSIUM-HCTZ 100-12.5 MG TABS 1 by mouth [place] for high blood pressure LOSARTAN POTASSIUM-HCTZ 78539332972 Active Stephy Urbina DO Active LISINOPRIL-HYDROCHLOROTHIAZIDE 20-12.5 MG TABS 1 tab by mouth da rocky LISINOPRIL-HYDROCHLOROTHIAZIDE 70659851142 No Longer Active Mitch luis DO Active LISINOPRIL 20 MG TABS 1 tab po at HS LISINOPRIL 41913017802 No Longer Active Mitch Urbina DO Active COUMADIN 5 MG TABS 1 by mouth every other day WARFARIN SODIUM 68062879997 No Longer Active Mitch Urbina DO Active COUMADIN 6 MG TABS 1 by mouth every other day WARFARIN SODIUM 67759393535 No Longer Active Mitch W [place] DO Active SIMVASTATIN 40 MG TABS 1 tab daily at bedtime S IMVASTATIN 50756400222 Active Mitch Urbina DO Active SIMVASTATIN 20 MG TABS 1 tab daily at bedtime S IMVASTATIN 80006674617 No Longer Active Mitch Urbina DO Active LOVENOX 100 MG/ML SC SOLN One injection twice a day 09/15/15 ENOXAPARIN SODIUM 91899123464 No Longer Active Carmine Navarrete ctive JANUVIA 50 MG TABS Take one by mouth daily DIEGO GLIPTIN PHOSPHATE 81469859402 Active Mitch Urbina DO Active JANUVIA 100 MG TABS 1/2 by mouth every day DIEGO GLIPTIN PHOSPHATE 59308976636 No Longer Active Bijal Segal RN Active METFORMIN HCL 500 MG TABS 2 by mouth twice daily METFORMIN HCL 77501278158 Active Mitch Urbina DO Active GLIMEPIRIDE 4 MG TABS 1 tab po bid GLIMEPIRIDE 697534 49810 Active Mitch Urbina DO Active COLCRYS 0.6 MG TABS 1 po q 6 hours prn gout pain 03/02 COLCHICINE 66178709914 No Longer Active Camila Reese Active LISINOPRIL 5 MG TABS 1 by mouth every day LISIN OPRIL 21703921837 No Longer Active Nguyen Perez Active KLOR-CON 20 MEQ PACK Take one by mouth daily 8 POTASSIUM CHLORIDE 64607395486 No Longer Active Nguyen Perez Active FUROSEMIDE 40 MG TABS 1 by mouth daily FUROSEMI DE 60127373438 No Longer Active Nguyenmolly Perez Active PROVIGIL 200 MG TABS 1/2 tab po q day MODAFINIL 26557 323811 Active Mitch Urbina DO Active PROVIGIL 100 MG TABS Take one by mouth daily MO DAFINIL 99387049479 No Longer Active Mitch Urbina DO Active BACTRIM DS 800-160 MG TAB 1 tab by mouth twice daily 2 TRIMETHOPRIM-SULFAMETHOXAZOLE 64059908593 No Longer Active Renan Hays MD Active FAMOTIDINE 20 MG TABS by mouth twice a day FAMOTI DINE 17345154634 Active Mitch Urbina DO Active ADULT ASPIRIN LOW STRENGTH 81 MG TBDP 1 by mouth every daily ASPIRIN 56705593100 Active Mitch Urbina DO Active METOPROLOL TARTRATE 50 MG TABS 1 by mouth twice daily METOPROLOL TARTRATE 40739957995 Active Mitch Urbina DO Active BACTRIM DS 800-160 MG TAB 1 tab by mouth twice daily 2 BACTRIM DS 800-160 MG TAB 180110 TRIMETHOPRIM-SULFAMETHOXAZOLE Inac tive PROVIGIL 100 MG TABS Take one by mouth daily 4 PROVIGIL 100 MG TABS 568450 MODAFINIL Inactive FUROSEMIDE 40 MG TABS 1 by mouth daily FU ROSEMIDE 40 MG TABS 740802 FUROSEMIDE Inactive KLOR-CON 20 MEQ PACK Take one by mouth daily 8 KLOR-CON 20 MEQ PACK 904196 POTASSIUM CHLORIDE Inactive LISINOPRIL 5 MG TABS 1 by mouth every day LISINOPRIL 5 MG TABS 265300 LISINOPRIL Inactive COLCRYS 0.6 MG TABS 1 po q 6 hours prn gout pain 03/02 COLCRYS 0.6 MG TABS 664683 COLCHICINE Inactive JANUVIA 100 MG TABS 1/2 by mouth every day JANUVI A 100 MG TABS SITAGLIPTIN PHOSPHATE Inactive SIMVASTATIN 20 MG TABS 1 tab daily at bedtime SIMVASTATIN 20 MG TABS 516670 SIMVASTATIN Inactive COUMADIN 6 MG TABS 1 by mouth every other day COUMADIN 6 MG TABS 320752 WARFARIN SODIUM Inactive COUMADIN 5 MG TABS 1 by mouth every other day COUMADIN 5 MG TABS 631796 WARFARIN SODIUM Inactive LISINOPRIL 20 MG TABS 1 tab po at HS KOKI NOPRIL 20 MG TABS 535806 LISINOPRIL Inactive LISINOPRIL-HYDROCHLOROTHIAZIDE 20-12.5 MG TABS 1 tab by mouth da rocky LISINOPRIL-HYDROCHLOROTHIAZIDE 20-12.5 MG TABS 828477 LISINOPRIL-HYDROCHLOROTHIAZIDE Inactive POLYTRIM 14809-4.1 UNIT/ML-% SOLN 1 drop in affected e ye every 3 hours while awake x 7 days POLYTRIM 26992-3.1 UNIT/ML-% SOLN 47948 7 POLYMYXIN B-TRIMETHOPRIM Inactive COUMADIN 4 MG TABS 1 tablet daily COUMADIN 4 MG TABS 053343 WARFARIN SODIUM Inactive CLONIDINE HCL 0.1 MG TABS 1 po bid 7 days, then 1/2 tab po b id 7 days CLONIDINE HCL 0.1 MG TABS 933873 CLONIDINE HCL I nactive ALLOPURINOL 300 MG TABS Take 1 tablet by mouth daily 2 ALLOPURINOL 300 MG TABS 889606 ALLOPURINOL Inactive MECLIZINE HCL 25 MG TAB 1 po tid 3 days, then 1/2 tab tid 3 days MECLIZINE HCL 25 MG TAB 407507 MECLIZINE HCL Inactive LOVENOX 100 MG/ML SC SOLN One injection twice a day 09/15/15 LOVENOX 100 MG/ML SC SOLN 483602 ENOXAPARIN SODIUM Inactive Vital Signs Date Name [...] Range Description Chart Maintenance: hemoccult added to [facility] - Chemistry occult blood, [...] - Chem istry sodium, serum 136 mmol/L 756-505 8858/01/14 carbon dioxide, venous blood 25.4 mmol/L 21.0-32 [...] CBC - Chemistry cholesterol, serum 136 mg/dL 734-589 0038/08/09 triglyceride, serum, fasting 187 mg/dL 30-200 HDL [...] 1.0-3.5 Encounters Code Encounter Date Provider Facility CPT-25480 Level 3 Est. Patient 14:21:06 CDT Mitch luis [facility] CPT-46441 Level 3 Est. Patient 14:52:06 [facility] Level [facility] Est. Patient 09:34:30 CAUSTIC LOADER Mitch luis [facility] CPT-34242 Level 3 Est. Patient 09:37:15 CDT Mitch luis [facility] CPT-91045 Level 3 Est. Patient 17:01:00 CAUSTIC LOADER Mitch luis [facility] CPT-20314 Level 3 Est. Patient 13:53:19 CAUSTIC LOADER Mitch luis [facility] CPT-79142 Level 3 Est. Patient 19:19:37 CAUSTIC LOADER Mitch luis [facility] CPT-45566 Level 3 Est. Patient 13:25:53 CAUSTIC LOADER Tavo toure MD [facility] CPT-81313 Level 3 Est. Patient 18:17:28 CDT Mitch luis [facility] CPT-62824 Level 3 Est. Patient 15:22:57 CDT Mitch luis [facility] CPT-43976 Level 3 Est. Patient 18:21:50 CDT Mitch luis [facility] CPT-92066 Level 3 Est. Patient 18:20:38 CDT Mitch luis [facility] CPT-97435 Level 3 Est. Patient 15:37:55 CDT Mitch luis [facility] CPT-48784 Level 2 Est. Patient 15:54:44 CDT Carmine benton MD [facility] CPT-81048 Level 3 Est. Patient 21:46:01 CAUSTIC LOADER Mitch luis [facility] CPT-24157 Level 3 Est. Patient 22:15:50 CDT Mitch luis [facility] CPT-75484 Level 3 Est. Patient 10:48:15 CDT Mitch luis [facility] CPT-66810 Level 3 Est. Patient 23:20:57 CDT Tavo toure MD [facility] CPT-42203 Level 3 Est. Patient 16:26:13 CDT Mitch luis [facility] Procedures Code Procedure Name Date Entry Date Standard Desc ription CPT-51630 Hemoccult IFOBT - LAB USE ONLY 10:27:22 CDT CPT-64472 Venipuncture Draw Fee 08:27:08 CDT CPT-94027 Liver Profile - LAB USE ONLY 08:27:07 CDT 2 CPT-43432 Microalbumin - LAB USE ONLY 08:27:07 CDT 20 25/05/09 CPT-57663 PT/INR - LAB USE ONLY 08:27:07 CDT CPT-19515 HGBA1C - LAB USE ONLY 08:27:07 CDT CPT-16251 CBC - LAB USE ONLY 08:27:07 CDT CPT-92793 Venipuncture Draw Fee 11:09:14 CDT CPT-19221 Venipuncture Draw Fee 08:32:21 CAUSTIC LOADER CPT-94686 Venipuncture Draw Fee 09:38:56 CAUSTIC LOADER CPT-92540 No Charge Offi Visit 21:36:07 CDT 1 CPT-29810 Venipuncture Draw Fee 10:13:28 CAUSTIC LOADER CPT-28675 Venipuncture Draw Fee 08:31:11 CDT CPT-30410 Aspir/Inject Med Joint 18:17:28 CDT CPT-32349 Venipuncture Draw Fee 10:13:30 CDT CPT-70683 Venipuncture Draw Fee 08:31:43 CAUSTIC LOADER CPT-JTINJ Joint Injection 18:34:50 CDT CPT-31580 Knee 3V 12:25:09 CDT CPT-62245 Venipuncture Draw Fee 12:15:57 CDT CPT-060 Medical Surveillance Exam 21:31:43 CDT 2011 CPT-77655 Venipuncture Draw Fee 08:32:05 CAUSTIC LOADER CPT-OV Office Visit 18:19:06 CDT
--- OUTSIDE RECORDS SUMMARY | 2020-01-18 12:28 | XMS REPORT | Clinical Summary ---
Author Author Admin, Mitch Leon Organization [facility] Address Unknown Phone Unavailable Allergies, Adverse Reactions, [...] atherosclerosis of unspecified type of vessel, [place] or graft EDEMA 782.3 Resolved Mitch Urbina [...] ORAL TABLET 1 po BID GLIMEPIRID E 25008558034 Active Renee Oconnor LPN Active KEFLEX 500 MG ORAL CAPSULE 1 po qid CEPHALEXI N 32599813346 No Longer Active Mitch Urbina DO Active LOSARTAN POTASSIUM 100 MG ORAL TABLET 1 pill by mouth daily, for blood pressure LOSARTAN POTASSIUM 83057837007 Active Ana Wallace Active AMLODIPINE BESYLATE 5 MG ORAL TABLET 1 tablet by mouth daily 201 01/20/04 AMLODIPINE BESYLATE 74345107448 No Longer Active Joe fulton APRN Active MITIGARE 0.6 MG ORAL CAPSULE 2 capsules at onset of go ut pain, then take one capsule at 1 hour if symptoms persist. COLCHICINE 59 666035752 Active Mitch Urbina DO Active COUMADIN 1 MG ORAL TABLET 2 tabs orally daily with the 5mg tab to equal 7mg daily WARFARIN SODIUM 97150797689 Active Ana Wallace Active COLCRYS 0.6 MG ORAL TABLET 1 tab qid prn gout C OLCHICINE 81306537344 Active Norma Cazares Active INVOKANA 100 MG ORAL TABLET 1 tablet orally daily CANAGLIFLOZIN 85903687478 Active Mitch Urbina DO Active MINOXIDIL 2.5 MG ORAL TABLET 1 tablet daily for high blood press ure MINOXIDIL 77934753400 Active Mitch Urbina DO Active MECLIZINE HCL 25 MG ORAL TABLET 1 po tid 3 days, then 1/2 ta b tid 3 days MECLIZINE HCL 26284488325 No Longer Active Corey SEGURA Active ALLOPURINOL 300 MG ORAL TABLET Take 1 tablet by mouth daily 2012 ALLOPURINOL 16276232108 No Longer Active Corey SEGURA Active CLONIDINE HCL 0.1 MG ORAL TABLET 1 po bid 7 days, then 1/2 t ab po bid 7 days CLONIDINE HCL 84193205588 No Longer Active Corey SEGURA Active COUMADIN 5 MG ORAL TABLET 1 tab PO daily WARFAR IN SODIUM 32854556019 Active Mitch Urbina DO Active COUMADIN 4 MG ORAL TABLET 1 tablet daily WARFAR IN SODIUM 11689968210 No Longer Active Corey SEGURA Active POLYTRIM 30682-0.1 UNIT/ML-% OPHTHALMIC SOLUTION 1 rui p in affected eye every 3 hours while awake x 7 days POLYMYXIN B-TRIMETHOP RIM 43406247552 No Longer Active Corey SEGURA Active LOSARTAN POTASSIUM-HCTZ 100-12.5 MG ORAL TABLET 1 by m outh daily for high blood pressure LOSARTAN POTASSIUM-HCTZ 04919053441 No Longer A ctive Mitch Urbina DO Active LISINOPRIL-HYDROCHLOROTHIAZIDE 20-12.5 MG ORAL TABLET 1 tab by m outh daily LISINOPRIL-HYDROCHLOROTHIAZIDE 16404010012 No Longer Active Mitch Urbina DO Active LISINOPRIL 20 MG ORAL TABLET 1 tab po at HS LIS INOPRIL 22307332254 No Longer Active Mitch Urbina DO Active COUMADIN 5 MG ORAL TABLET 1 by mouth every other day 2 WARFARIN SODIUM 15150698585 No Longer Active Mitch Urbina DO Active COUMADIN 6 MG ORAL TABLET 1 by mouth every other day 2 WARFARIN SODIUM 68903432377 No Longer Active Mitch Urbina DO Active SIMVASTATIN 40 MG ORAL TABLET 1 tab daily at bedtime SIMVASTATIN 54028747718 Active Mitch Urbina DO Active SIMVASTATIN 20 MG ORAL TABLET 1 tab daily at bedtime 2 SIMVASTATIN 45250831664 No Longer Active Mitch Urbina DO Active LOVENOX 100 MG/ML SUBCUTANEOUS SOLUTION One injection twice a da y ENOXAPARIN SODIUM 05897589085 No Longer Active Carmine Yusuf MD Active JANUVIA 50 MG ORAL TABLET Take one by mouth daily SITAGLIPTIN PHOSPHATE 76353900650 Active Mitch Urbina DO Active JANUVIA 100 MG ORAL TABLET 1/2 by mouth every day 2011 SITAGLIPTIN PHOSPHATE 58644532419 No Longer Active Bijal Segal RN Acti ve METFORMIN HCL 500 MG ORAL TABLET 2 by mouth twice daily METFORMIN HCL 08618172157 Active Mitch Urbina DO Active COLCRYS 0.6 MG ORAL TABLET 1 po q 6 hours prn gout pain COLCHICINE 36996862036 No Longer Active Camila Reese Active LISINOPRIL 5 MG ORAL TABLET 1 by mouth every day 11/17 LISINOPRIL 95887257798 No Longer Active Nguyen Coekman Active KLOR-CON 20 MEQ ORAL PACKET Take one by mouth daily 09/10/08 POTASSIUM CHLORIDE 52918713449 No Longer Active Nguyen Coekman Active FUROSEMIDE 40 MG ORAL TABLET 1 by mouth daily F UROSEMIDE 98594830176 No Longer Active Nguyen Coekman Active PROVIGIL 200 MG ORAL TABLET 1/2 tab po q day MODA FINIL 55155988647 Active Renee Oconnor WINDOWS VMWARE ADMINISTRATOR Active PROVIGIL 100 MG ORAL TABLET Take one by mouth daily 08/20/04 MODAFINIL 27395120189 No Longer Active Mitch Urbina DO Active BACTRIM DS 800-160 MG ORAL TABLET 1 tab by mouth twice daily 201 10/19/09 TRIMETHOPRIM-SULFAMETHOXAZOLE 60953126533 No Longer Active Elian Hays MD Active FAMOTIDINE 20 MG ORAL TABLET by mouth twice a day FAMOTIDINE 43749497165 Active Mitch Urbina DO Active ADULT ASPIRIN LOW STRENGTH 81 MG ORAL TABLET DISINTEGR ATING 1 by mouth every daily ASPIRIN 80921165551 Active Mitch Urbina DO Ac tive METOPROLOL TARTRATE 50 MG ORAL TABLET 1 by mouth twice daily METOPROLOL TARTRATE 46020438752 Active Mitch Urbina DO Active BACTRIM DS 800-160 MG ORAL TABLET 1 tab by mouth twice daily 201 10/19/09 BACTRIM DS 800-160 MG ORAL TABLET 963856 TRIMETHOPRIM-SULFAMETHOXAZOLE Inactive PROVIGIL 100 MG ORAL TABLET Take one by mouth daily 08/20/04 PROVIGIL 100 MG ORAL TABLET 891897 MODAFINIL Inactive FUROSEMIDE 40 MG ORAL TABLET 1 by mouth daily FUROSEMIDE 40 MG ORAL TABLET 079935 FUROSEMIDE Inactive KLOR-CON 20 MEQ ORAL PACKET Take one by mouth daily 09/10/08 KLOR- CON 20 MEQ ORAL PACKET 7085714 POTASSIUM CHLORIDE Inactive LISINOPRIL 5 MG ORAL TABLET 1 by mouth every day 11/17 LISINOPRIL 5 MG ORAL TABLET 015950 LISINOPRIL Inactive COLCRYS 0.6 MG ORAL TABLET 1 po q 6 hours prn gout pain COLCRYS 0.6 MG ORAL TABLET 724593 COLCHICINE Inactive JANUVIA 100 MG ORAL TABLET 1/2 by mouth every day 2011 JANUVIA 100 MG ORAL TABLET SITAGLIPTIN PHOSPHATE Inactive SIMVASTATIN 20 MG ORAL TABLET 1 tab daily at bedtime 2 SIMVASTATIN 20 MG ORAL TABLET 852210 SIMVASTATIN Inactive COUMADIN 6 MG ORAL TABLET 1 by mouth every other day 2 COUMADIN 6 MG ORAL TABLET 672680 WARFARIN SODIUM Inactive COUMADIN 5 MG ORAL TABLET 1 by mouth every other day 2 COUMADIN 5 MG ORAL TABLET 439447 WARFARIN SODIUM Inactive LISINOPRIL 20 MG ORAL TABLET 1 tab po at HS LISINOPRIL 20 MG ORAL TABLET 201190 LISINOPRIL Inactive LISINOPRIL-HYDROCHLOROTHIAZIDE 20-12.5 MG ORAL TABLET 1 tab by m outh daily LISINOPRIL-HYDROCHLOROTHIAZIDE 20-12.5 MG ORAL TABLET 592757 LISINOPRIL-HYDROCHLOROTHIAZIDE Inactive POLYTRIM 43386-3.1 UNIT/ML-% OPHTHALMIC SOLUTION 1 rui p in affected eye every 3 hours while awake x 7 days POLYTRIM 1000 0-0.1 UNIT/ML-% OPHTHALMIC SOLUTION 464870 POLYMYXIN B-TRIMETHOPRIM Inactive COUMADIN 4 MG ORAL TABLET 1 tablet daily COUMADIN 4 MG ORAL TABLET 301326 WARFARIN SODIUM Inactive CLONIDINE HCL 0.1 MG ORAL TABLET 1 po bid 7 days, then 1/2 t ab po bid 7 days CLONIDINE HCL 0.1 MG ORAL TABLET 562697 CLONIDIN E HCL Inactive ALLOPURINOL 300 MG ORAL TABLET Take 1 tablet by mouth daily 2012 ALLOPURINOL 300 MG ORAL TABLET 734742 ALLOPURINOL I nactive MECLIZINE HCL 25 MG ORAL TABLET 1 po tid 3 days, then 1/2 ta b tid 3 days MECLIZINE HCL 25 MG ORAL TABLET 929864 MECLIZINE HCL Inactive AMLODIPINE BESYLATE 5 MG ORAL TABLET 1 tablet by mouth daily 201 01/20/04 AMLODIPINE BESYLATE 5 MG ORAL TABLET 413830 AMLODIPINE BESYLATE Inactive KEFLEX 500 MG ORAL CAPSULE 1 po qid K EFLEX 500 MG ORAL CAPSULE 231135 CEPHALEXIN Inactive LOVENOX 100 MG/ML SUBCUTANEOUS SOLUTION One injection twice a da y LOVENOX 100 MG/ML SUBCUTANEOUS SOLUTION 216709 ENOXAPAR IN SODIUM Inactive Vital Signs Date [...] - Chem istry sodium, serum 139 mmol/L 842-394 1477/07/17 potassium, serum 4.2 mmol/L 3.5-5.2 chloride, serum 102 mmol/L 98-107 carbon dioxide, venous blood 28.9 mmol/L 21.0-32 .0 blood glucose 211 mg/dL 65-110 calcium, serum 10.6 mg/dL 8.5-10.1 urea nitrogen, blood 29 mg/dL 7-18 creatinine, serum 1.24 mg/dL 0.60-1.30 sodium, serum 141 mmol/L 633-499 9316/08/07 potassium, serum 4.5 mmol/L 3.5-5.2 chloride, serum [...] ... - Chemistry sodium, serum 144 mmol/L 040-668 8302/06/12 carbon dioxide, venous blood 26.6 mmol/L 21.0-32 [...] HGBA1C - Chemistry cholesterol, serum 136 mg/dL 403-200 7208/12/06 triglyceride, serum, fasting 247 mg/dL 30-200 HDL cholesterol, serum 41 mg/dL 32-60 LDL cholesterol, serum 46 mg/dL 0-130 aspartate aminotransferase (SGOT), serum 22 U/L 15-37 alanine aminotransferase (SGPT), serum 30 U/L 12-78 bilirubin, serum, total 0.80 mg/dL 0.00-1.00 hemoglobin A1C, blood, as % of total hemoglobin 6.4 % 4.3-6.0 Encounters Code Encounter Date Provider Facility CPT-76055 Level 3 Est. Patient 18:25:53 CDT Mitch luis [facility] CPT-32958 Level 3 Est. Patient 19:43:34 CDT Mitch luis [facility] CPT-63204 Level 4 Est. Patient 09:30:18 CDT Mitch luis [facility] CPT-94982 Level 3 Est. Patient 15:10:14 CDT Joe kamara [facility] CPT-11278 Level 3 Est. Patient 15:03:46 CDT Joe kamara [facility] CPT-25355 Level 3 Est. Patient 14:21:06 CDT Mitch luis [facility] CPT-40351 Level 3 Est. Patient 14:52:06 CDT Joe kamara [facility] CPT-20090 Level 3 Est. Patient 09:34:30 RHEOLOGIST Mitch luis [facility] CPT-04848 Level 3 Est. Patient 09:37:15 CDT Mitch luis [facility] CPT-70074 Level 3 Est. Patient 17:01:00 RHEOLOGIST Mitch luis [facility] CPT-59266 Level 3 Est. Patient 13:53:19 RHEOLOGIST Mitch luis [facility] CPT-64889 Level 3 Est. Patient 19:19:37 RHEOLOGIST Mitch luis [facility] CPT-82759 Level 3 Est. Patient 13:25:53 RHEOLOGIST Tavo toure MD [facility] CPT-29915 Level 3 Est. Patient 18:17:28 CDT Mitch luis [facility] CPT-90608 Level 3 Est. Patient 15:22:57 CDT Mitch luis [facility] CPT-37547 Level 3 Est. Patient 18:21:50 CDT Mitch luis [facility] CPT-09907 Level 3 Est. Patient 18:20:38 CDT Mitch luis [facility] CPT-47813 Level 3 Est. Patient 15:37:55 CDT Mitch luis [facility] CPT-61837 Level 2 Est. Patient 15:54:44 CDT Carmine benton MD [facility] CPT-91374 Level 3 Est. Patient 21:46:01 RHEOLOGIST Mitch luis [facility] CPT-04932 Level 3 Est. Patient 22:15:50 CDT Mitch luis [facility] CPT-77461 Level 3 Est. Patient 10:48:15 CDT Mitch luis [facility] CPT-51156 Level 3 Est. Patient 23:20:57 CDT Tavo toure MD [facility] CPT-06310 Level 3 Est. Patient 16:26:13 CDT Mitch Arnol Nona janelle [facility] Procedures Code Procedure Name Date Entry Date Standard Desc ription CPT-75241 Venipuncture Draw Fee 09:26:17 CDT CPT-35859 PT/INR - LAB USE ONLY 13:32:49 RHEOLOGIST CPT-20071 Venipuncture Draw Fee 13:32:49 RHEOLOGIST CPT-38101 PT/INR - LAB USE ONLY 10:34:49 RHEOLOGIST CPT-29164 Venipuncture Draw Fee 10:34:48 RHEOLOGIST CPT-11785 PT/INR - LAB USE ONLY 09:22:03 RHEOLOGIST CPT-03810 Venipuncture Draw Fee 09:22:02 RHEOLOGIST CPT-77037 Hemoccult IFOBT - LAB USE ONLY 10:27:22 CDT CPT-11847 Venipuncture Draw Fee 08:27:08 CDT CPT-59312 Liver Profile - LAB USE ONLY 08:27:07 CDT 2 CPT-76426 Microalbumin - LAB USE ONLY 08:27:07 CDT 20 25/05/09 CPT-74155 PT/INR - LAB USE ONLY 08:27:07 CDT CPT-85825 HGBA1C - LAB USE ONLY 08:27:07 CDT CPT-76255 CBC - LAB USE ONLY 08:27:07 CDT CPT-04543 Venipuncture Draw Fee 11:09:14 CDT CPT-91917 Venipuncture Draw Fee 08:32:21 RHEOLOGIST CPT-56568 Venipuncture Draw Fee 09:38:56 RHEOLOGIST CPT-12930 No Charge Offi Visit 21:36:07 CDT 1 CPT-06865 Venipuncture Draw Fee 10:13:28 RHEOLOGIST CPT-49371 Venipuncture Draw Fee 08:31:11 CDT CPT-14958 Aspir/Inject Med Joint 18:17:28 CDT CPT-97822 Venipuncture Draw Fee 10:13:30 CDT CPT-20858 Venipuncture Draw Fee 08:31:43 RHEOLOGIST CPT-JTINJ Joint Injection 18:34:50 CDT CPT-84447 Knee 3V 12:25:09 CDT CPT-99506 Venipuncture Draw Fee 12:15:57 CDT CPT-060 Medical Surveillance Exam 21:31:43 CDT 2011 CPT-29746 Venipuncture Draw Fee 08:32:05 RHEOLOGIST CPT-OV Office Visit 18:19:06 CDT
--- OUTSIDE RECORDS SUMMARY | 2020-01-18 12:28 | XMS REPORT | Clinical Summary ---
[...] Coronary atherosclerosis of unspecified type of vessel, [place] or graft EDEMA 782.3 Resolved Mitch [...] ORAL TABLET 1 po BID GLIMEPIRID E 87488630498 Active Renee Oconnor LPN Active KEFLEX 500 MG ORAL CAPSULE 1 po qid CEPHALEXI N 92192424416 No Longer Active Mitch Urbina DO Active LOSARTAN POTASSIUM 100 MG ORAL TABLET 1 pill by mouth daily, for blood pressure LOSARTAN POTASSIUM 46214629293 Active Ana Wallace Active AMLODIPINE BESYLATE 5 MG ORAL TABLET 1 tablet by mouth daily 201 01/20/04 AMLODIPINE BESYLATE 05647845928 No Longer Active Joe fulton APRN Active MITIGARE 0.6 MG ORAL CAPSULE 2 capsules at onset of go ut pain, then take one capsule at 1 hour if symptoms persist. COLCHICINE 59 256245666 Active Mitch Urbina DO Active COUMADIN 1 MG ORAL TABLET 2 tabs orally daily with the 5mg tab to equal 7mg daily WARFARIN SODIUM 00089487404 Active Ana Wallace Active COLCRYS 0.6 MG ORAL TABLET 1 tab qid prn gout C OLCHICINE 85985453406 Active Norma Cazares Active INVOKANA 100 MG ORAL TABLET 1 tablet orally daily CANAGLIFLOZIN 94267695459 Active Mitch Urbina DO Active MINOXIDIL 2.5 MG ORAL TABLET 1 tablet daily for high blood press ure MINOXIDIL 55250209473 Active Mitch Urbina DO Active MECLIZINE HCL 25 MG ORAL TABLET 1 po tid 3 days, then 1/2 ta b tid 3 days MECLIZINE HCL 65965303120 No Longer Active Corey SEGURA Active ALLOPURINOL 300 MG ORAL TABLET Take 1 tablet by mouth daily 2012 ALLOPURINOL 40273229255 No Longer Active Corey SEGURA Active CLONIDINE HCL 0.1 MG ORAL TABLET 1 po bid 7 days, then 1/2 t ab po bid 7 days CLONIDINE HCL 13825556664 No Longer Active Corey SEGURA Active COUMADIN 5 MG ORAL TABLET 1 tab PO daily WARFAR IN SODIUM 07628176817 Active Mitch Urbina DO Active COUMADIN 4 MG ORAL TABLET 1 tablet daily WARFAR IN SODIUM 71750714583 No Longer Active Corey SEGURA Active POLYTRIM 55001-7.1 UNIT/ML-% OPHTHALMIC SOLUTION 1 rui p in affected eye every 3 hours while awake x 7 days POLYMYXIN B-TRIMETHOP RIM 10558171695 No Longer Active Corey SEGURA Active LOSARTAN POTASSIUM-HCTZ 100-12.5 MG ORAL TABLET 1 by m outh daily for high blood pressure LOSARTAN POTASSIUM-HCTZ 10575551945 No Longer A ctive Mitch Urbina DO Active LISINOPRIL-HYDROCHLOROTHIAZIDE 20-12.5 MG ORAL TABLET 1 tab by m outh daily LISINOPRIL-HYDROCHLOROTHIAZIDE 14394760341 No Longer Active Mitch Urbina DO Active LISINOPRIL 20 MG ORAL TABLET 1 tab po at HS LIS INOPRIL 44952994253 No Longer Active Mitch Urbina DO Active COUMADIN 5 MG ORAL TABLET 1 by mouth every other day 2 WARFARIN SODIUM 90209799907 No Longer Active Mitch Urbina DO Active COUMADIN 6 MG ORAL TABLET 1 by mouth every other day 2 WARFARIN SODIUM 33746511637 No Longer Active Mitch Urbina DO Active SIMVASTATIN 40 MG ORAL TABLET 1 tab daily at bedtime SIMVASTATIN 42061994245 Active Mitch Urbina DO Active SIMVASTATIN 20 MG ORAL TABLET 1 tab daily at bedtime 2 SIMVASTATIN 81507301285 No Longer Active Mitch Urbina DO Active LOVENOX 100 MG/ML SUBCUTANEOUS SOLUTION One injection twice a da y ENOXAPARIN SODIUM 89072439134 No Longer Active Carmine Yusuf MD Active JANUVIA 50 MG ORAL TABLET Take one by mouth daily SITAGLIPTIN PHOSPHATE 22427469025 Active Mitch Urbina DO Active JANUVIA 100 MG ORAL TABLET 1/2 by mouth every day 2011 SITAGLIPTIN PHOSPHATE 45805608709 No Longer Active Bijal Segal RN Acti ve METFORMIN HCL 500 MG ORAL TABLET 2 by mouth twice daily METFORMIN HCL 57689821708 Active Mitch Urbina DO Active COLCRYS 0.6 MG ORAL TABLET 1 po q 6 hours prn gout pain COLCHICINE 36676885548 No Longer Active Camila Reese Active LISINOPRIL 5 MG ORAL TABLET 1 by mouth every day 11/17 LISINOPRIL 63360766947 No Longer Active Nguyen Ana Active KLOR-CON 20 MEQ ORAL PACKET Take one by mouth daily 09/10/08 POTASSIUM CHLORIDE 31360266084 No Longer Active Nguyen Coekman Active FUROSEMIDE 40 MG ORAL TABLET 1 by mouth daily F UROSEMIDE 37005574006 No Longer Active Nguyen Perez Active PROVIGIL 200 MG ORAL TABLET 1/2 tab po q day MODA FINIL 00790039875 Active Mitch Urbina DO Active PROVIGIL 100 MG ORAL TABLET Take one by mouth daily 08/20/04 MODAFINIL 24879602890 No Longer Active Mitch Urbina DO Active BACTRIM DS 800-160 MG ORAL TABLET 1 tab by mouth twice daily 201 10/19/09 TRIMETHOPRIM-SULFAMETHOXAZOLE 12248766926 No Longer Active Elian Hays MD Active FAMOTIDINE 20 MG ORAL TABLET by mouth twice a day FAMOTIDINE 79505605349 Active Mitch Urbina DO Active ADULT ASPIRIN LOW STRENGTH 81 MG ORAL TABLET DISINTEGR ATING 1 by mouth every daily ASPIRIN 61667770205 Active Mitch Urbina DO Ac tive METOPROLOL TARTRATE 50 MG ORAL TABLET 1 by mouth twice daily METOPROLOL TARTRATE 71533712081 Active Mitch Urbina DO Active BACTRIM DS 800-160 MG ORAL TABLET 1 tab by mouth twice daily 201 10/19/09 BACTRIM DS 800-160 MG ORAL TABLET 953755 TRIMETHOPRIM-SULFAMETHOXAZOLE Inactive PROVIGIL 100 MG ORAL TABLET Take one by mouth daily 08/20/04 PROVIGIL 100 MG ORAL TABLET 569266 MODAFINIL Inactive FUROSEMIDE 40 MG ORAL TABLET 1 by mouth daily FUROSEMIDE 40 MG ORAL TABLET 831057 FUROSEMIDE Inactive KLOR-CON 20 MEQ ORAL PACKET Take one by mouth daily 09/10/08 KLOR- CON 20 MEQ ORAL PACKET 6373350 POTASSIUM CHLORIDE Inactive LISINOPRIL 5 MG ORAL TABLET 1 by mouth every day 11/17 LISINOPRIL 5 MG ORAL TABLET 492529 LISINOPRIL Inactive COLCRYS 0.6 MG ORAL TABLET 1 po q 6 hours prn gout pain COLCRYS 0.6 MG ORAL TABLET 380396 COLCHICINE Inactive JANUVIA 100 MG ORAL TABLET 1/2 by mouth every day 2011 JANUVIA 100 MG ORAL TABLET SITAGLIPTIN PHOSPHATE Inactive SIMVASTATIN 20 MG ORAL TABLET 1 tab daily at bedtime 2 SIMVASTATIN 20 MG ORAL TABLET 714969 SIMVASTATIN Inactive COUMADIN 6 MG ORAL TABLET 1 by mouth every other day 2 COUMADIN 6 MG ORAL TABLET 299567 WARFARIN SODIUM Inactive COUMADIN 5 MG ORAL TABLET 1 by mouth every other day 2 COUMADIN 5 MG ORAL TABLET 081440 WARFARIN SODIUM Inactive LISINOPRIL 20 MG ORAL TABLET 1 tab po at HS LISINOPRIL 20 MG ORAL TABLET 599715 LISINOPRIL Inactive LISINOPRIL-HYDROCHLOROTHIAZIDE 20-12.5 MG ORAL TABLET 1 tab by m outh daily LISINOPRIL-HYDROCHLOROTHIAZIDE 20-12.5 MG ORAL TABLET 329438 LISINOPRIL-HYDROCHLOROTHIAZIDE Inactive POLYTRIM 03873-6.1 UNIT/ML-% OPHTHALMIC SOLUTION 1 rui p in affected eye every 3 hours while awake x 7 days POLYTRIM 1000 0-0.1 UNIT/ML-% OPHTHALMIC SOLUTION 504920 POLYMYXIN B-TRIMETHOPRIM Inactive COUMADIN 4 MG ORAL TABLET 1 tablet daily COUMADIN 4 MG ORAL TABLET 544272 WARFARIN SODIUM Inactive CLONIDINE HCL 0.1 MG ORAL TABLET 1 po bid 7 days, then 1/2 t ab po bid 7 days CLONIDINE HCL 0.1 MG ORAL TABLET 538953 CLONIDIN E HCL Inactive ALLOPURINOL 300 MG ORAL TABLET Take 1 tablet by mouth daily 2012 ALLOPURINOL 300 MG ORAL TABLET 004615 ALLOPURINOL I nactive MECLIZINE HCL 25 MG ORAL TABLET 1 po tid 3 days, then 1/2 ta b tid 3 days MECLIZINE HCL 25 MG ORAL TABLET 953837 MECLIZINE HCL Inactive AMLODIPINE BESYLATE 5 MG ORAL TABLET 1 tablet by mouth daily 201 01/20/04 AMLODIPINE BESYLATE 5 MG ORAL TABLET 751657 AMLODIPINE BESYLATE Inactive KEFLEX 500 MG ORAL CAPSULE 1 po qid K EFLEX 500 MG ORAL CAPSULE 682656 CEPHALEXIN Inactive LOVENOX 100 MG/ML SUBCUTANEOUS SOLUTION One injection twice a da y LOVENOX 100 MG/ML SUBCUTANEOUS SOLUTION 458697 ENOXAPAR IN SODIUM Inactive Vital Signs Date [...] - Chem istry sodium, serum 139 mmol/L 183-138 2232/07/17 potassium, serum 4.2 mmol/L 3.5-5.2 chloride, serum 102 mmol/L 98-107 carbon dioxide, venous blood 28.9 mmol/L 21.0-32 .0 blood glucose 211 mg/dL 65-110 calcium, serum 10.6 mg/dL 8.5-10.1 urea nitrogen, blood 29 mg/dL 7-18 creatinine, serum 1.24 mg/dL 0.60-1.30 sodium, serum 141 mmol/L 555-069 6138/08/07 potassium, serum 4.5 mmol/L 3.5-5.2 chloride, serum [...] ... - Chemistry sodium, serum 144 mmol/L 086-548 4792/06/12 carbon dioxide, venous blood 26.6 mmol/L 21.0-32 [...] HGBA1C - Chemistry cholesterol, serum 136 mg/dL 212-950 1038/12/06 triglyceride, serum, fasting 247 mg/dL 30-200 HDL [...] 1.0-3.5 Encounters Code Encounter Date Provider Facility CPT-83599 Level 3 Est. Patient 18:25:[address] [facility] CPT-58250 Level 3 Est. Patient 19:43:[address] [facility] CPT-33876 Level 4 Est. Patient 09:30:[address] [facility] CPT-93847 Level 3 Est. Patient 15:10:14 CDT Joe kamara [facility] CPT-20233 Level 3 Est. Patient 15:03:46 CDT Joe kamara [facility] CPT-29230 Level 3 Est. Patient 14:21:[address] [facility] CPT-52962 Level 3 Est. Patient 14:52:06 CDT Joe kamara [facility] CPT-09682 Level 3 Est. Patient 09:34:30 PRESS OPERATOR HELPER Mitch Castellano [facility] CPT-52540 Level 3 Est. Patient 09:37:[address] [facility] CPT-03804 Level 3 Est. Patient 17:01:00 PRESS OPERATOR HELPER Mitch luis [facility] CPT-58598 Level 3 Est. Patient 13:53:19 PRESS OPERATOR HELPER Mitch W Nona luis [facility] CPT-76574 Level 3 Est. Patient 19:19:37 PRESS OPERATOR HELPER Mitch W L janelle [facility] CPT-72873 Level 3 Est. Patient 13:25:53 PRESS OPERATOR HELPER Tavo toure MD [facility] CPT-87779 Level 3 Est. Patient 18:17:28 CDT Mitch Ambrose L janelle [facility] CPT-87256 Level 3 Est. Patient 15:22:57 CDT Mitch W L janelle [facility] CPT-73023 Level 3 Est. Patient 18:21:50 CDT Mitch W L janelle [facility] CPT-31384 Level 3 Est. Patient 18:20:38 CDT Mitch W L janelle [facility] CPT-65927 Level 3 Est. Patient 15:37:55 CDT Mitch luis [facility] CPT-98742 Level 2 Est. Patient 15:54:44 CDT Carmine benton MD [facility]-98513 Level 3 Est. Patient 21:46:01 PRESS OPERATOR HELPER Mitch luis [facility] CPT-07950 Level 3 Est. Patient 22:15:50 CDT Mitch luis [facility] CPT-40892 Level 3 Est. Patient 10:48:15 CDT Mitch W L janelle [facility] CPT-70168 Level 3 Est. Patient 23:20:57 CDT Tavo toure MD [facility]-99370 Level 3 Est. Patient 16:26:13 CDT Mitch Ambrose L janelle [facility] Procedures Code Procedure Name Date Entry Date Standard Desc ription CPT-79246 Venipuncture Draw Fee 09:26:17 CDT CPT-28409 PT/INR - LAB USE ONLY 13:32:49 PRESS OPERATOR HELPER CPT-91050 Venipuncture Draw Fee 13:32:49 PRESS OPERATOR HELPER CPT-22936 PT/INR - LAB USE ONLY 10:34:49 PRESS OPERATOR HELPER CPT-93834 Venipuncture Draw Fee 10:34:48 PRESS OPERATOR HELPER CPT-85794 PT/INR - LAB USE ONLY 09:22:03 PRESS OPERATOR HELPER CPT-52941 Venipuncture Draw Fee 09:22:02 PRESS OPERATOR HELPER CPT-62516 Hemoccult IFOBT - LAB USE ONLY 10:27:22 CDT CPT-73664 Venipuncture Draw Fee 08:27:08 CDT CPT-79197 Liver Profile - LAB USE ONLY 08:27:07 CDT 2 CPT-48532 Microalbumin - LAB USE ONLY 08:27:07 CDT 20 25/05/09 CPT-83760 PT/INR - LAB USE ONLY 08:27:07 CDT CPT-17722 HGBA1C - LAB USE ONLY 08:27:07 CDT CPT-57878 CBC - LAB USE ONLY 08:27:07 CDT CPT-46772 Venipuncture Draw Fee 11:09:14 CDT CPT-09537 Venipuncture Draw Fee 08:32:21 PRESS OPERATOR HELPER CPT-19626 Venipuncture Draw Fee 09:38:56 PRESS OPERATOR HELPER CPT-38309 No Charge Offi Visit 21:36:07 CDT 1 CPT-68649 Venipuncture Draw Fee 10:13:28 PRESS OPERATOR HELPER CPT-12488 Venipuncture Draw Fee 08:31:11 CDT CPT-27657 Aspir/Inject Med Joint 18:17:28 CDT CPT-91768 Venipuncture Draw Fee 10:13:30 CDT CPT-48287 Venipuncture Draw Fee 08:31:43 PRESS OPERATOR HELPER CPT-JTINJ Joint Injection 18:34:50 CDT CPT-18115 Knee 3V 12:25:09 CDT CPT-70113 Venipuncture Draw Fee 12:15:57 CDT CPT-060 Medical Surveillance Exam 21:31:43 CDT 2011 CPT-40973 Venipuncture Draw Fee 08:32:05 PRESS OPERATOR HELPER CPT-OV Office Visit 18:19:06 CDT
--- OUTSIDE RECORDS SUMMARY | 2020-01-18 12:28 | XMS REPORT | Clinical Summary ---
Author Author Admin, Mitch Leon Organization [facility] videoNEXT Address Unknown Phone Unavailable Allergies, Adverse Reactions, [...] DO Hypoglycemia, unspecified GOUT, WRIST 274.9 Active iMtch Urbina DO Gout, unspecified LONG-TERM (CURRENT) USE OF ANTICOAGULANTS V58.61 Resol kylah Mitch Urbina DO Long-term (current) use of anticoagulant s HEALTH MAINTENANCE EXAM V70.0 Active Mitch Meraz DO Routine general medical examination at a health care facility CORONARY HEART DISEASE 414.00 Active Mitch Urbina DO Coronary atherosclerosis of unspecified type of vessel, [place] or graft EDEMA 782.3 Resolved Mitch Urbina [...] 1 tablet by mouth daily AMLODIPINE BESYLATE 34623164164 No Longer Active Joe Williamson APRN Active MITIGARE 0.6 MG ORAL CAPS 2 capsules at onset of gout pain, then take one capsule at 1 hour if symptoms persist. COLCHICINE 59 260005040 Active Mitch Urbina DO Active COUMADIN 1 MG TAB 2 tabs orally daily with the 5mg tab to equal 7mg daily WARFARIN SODIUM 94712031004 Active Mitch Urbina DO Active COLCRYS 0.6 MG TABS 1 tab qid prn gout COLCHICINE 93002203512 Active Norma Cazares Active INVOKANA 100 MG ORAL TABS 1 tablet orally daily CANAGLIFLOZIN 57434667109 Active Brenda Gaymerman Active MINOXIDIL 2.5 MG TABS 1 tablet daily for high blood pressure 10/23 MINOXIDIL 26482340317 Active Ana Wallace Active MECLIZINE HCL 25 MG TAB 1 po tid 3 days, then 1/2 tab tid 3 days MECLIZINE HCL 22244504080 No Longer Active Corey SEGURA Active ALLOPURINOL 300 MG TABS Take 1 tablet by mouth daily 2 ALLOPURINOL 17415725659 No Longer Active Corey SEGURA Activ e CLONIDINE HCL 0.1 MG TABS 1 po bid 7 days, then 1/2 tab po b id 7 days CLONIDINE HCL 97719943467 No Longer Active Corey SEGURA Active COUMADIN 5 MG TABS 1 tab PO daily WARFARIN SODIUM 34858388166 Active Mitch Urbina DO Active COUMADIN 4 MG TABS 1 tablet daily WARFARIN SODI UM 89008524853 No Longer Active Corey SEGURA Active POLYTRIM 96561-7.1 UNIT/ML-% SOLN 1 drop in affected e ye every 3 hours while awake x 7 days POLYMYXIN B-TRIMETHOPRIM 03439777719 N o Longer Active Corey SEGURA Active LOSARTAN POTASSIUM-HCTZ 100-12.5 MG TABS 1 by mouth da rocky for high blood pressure LOSARTAN POTASSIUM-HCTZ 07410184157 Active Stephy Urbina DO Active LISINOPRIL-HYDROCHLOROTHIAZIDE 20-12.5 MG TABS 1 tab by mouth da rokcy LISINOPRIL-HYDROCHLOROTHIAZIDE 66430310170 No Longer Active Mitch luis DO Active LISINOPRIL 20 MG TABS 1 tab po at HS LISINOPRIL 48460053540 No Longer Active Mitch rUbina DO Active COUMADIN 5 MG TABS 1 by mouth every other day WARFARIN SODIUM 97750318454 No Longer Active Mitch Urbina DO Active COUMADIN 6 MG TABS 1 by mouth every other day WARFARIN SODIUM 00775818218 No Longer Active Mitch Urbina DO Active SIMVASTATIN 40 MG TABS 1 tab daily at bedtime S IMVASTATIN 52700316890 Active Mitch Urbina DO Active SIMVASTATIN 20 MG TABS 1 tab daily at bedtime S IMVASTATIN 13642513519 No Longer Active Mitch Urbina DO Active LOVENOX 100 MG/ML SC SOLN One injection twice a day 09/15/15 ENOXAPARIN SODIUM 04500536672 No Longer Active Carmine Navarrete ctive JANUVIA 50 MG TABS Take one by mouth daily DIEGO GLIPTIN PHOSPHATE 81926421890 Active Mitch Urbina DO Active JANUVIA 100 MG TABS 1/2 by mouth every day DIEGO GLIPTIN PHOSPHATE 17068066625 No Longer Active Bijal Segal RN Active METFORMIN HCL 500 MG TABS 2 by mouth twice daily METFORMIN HCL 69215988715 Active Mitch Urbina DO Active GLIMEPIRIDE 4 MG TABS 1 tab po bid GLIMEPIRIDE 195932 99317 Active Mitch Urbina DO Active COLCRYS 0.6 MG TABS 1 po q 6 hours prn gout pain 03/02 COLCHICINE 98365673005 No Longer Active Camila Reese Active LISINOPRIL 5 MG TABS 1 by mouth every day LISIN OPRIL 98155025786 No Longer Active Nguyen Perez Active KLOR-CON 20 MEQ PACK Take one by mouth daily 8 POTASSIUM CHLORIDE 80772979843 No Longer Active Nguyen Perez Active FUROSEMIDE 40 MG TABS 1 by mouth daily FUROSEMI DE 37733781455 No Longer Active Nguyen Perez Active PROVIGIL 200 MG TABS 1/2 tab po q day MODAFINIL 93946 204346 Active Kathie Juan RPT,RMA Active PROVIGIL 100 MG TABS Take one by mouth daily MO DAFINIL 10077061119 No Longer Active Mitch Urbina DO Active BACTRIM DS 800-160 MG TAB 1 tab by mouth twice daily 2 TRIMETHOPRIM-SULFAMETHOXAZOLE 76084822438 No Longer Active Renan Hays MD Active FAMOTIDINE 20 MG TABS by mouth twice a day FAMOTI DINE 37002348443 Active Mitch Urbina DO Active ADULT ASPIRIN LOW STRENGTH 81 MG TBDP 1 by mouth every daily ASPIRIN 31093510794 Active Mitch Urbina DO Active METOPROLOL TARTRATE 50 MG TABS 1 by mouth twice daily METOPROLOL TARTRATE 71838153892 Active Mitch Urbina DO Active BACTRIM DS 800-160 MG TAB 1 tab by mouth twice daily 2 BACTRIM DS 800-160 MG TAB 996701 TRIMETHOPRIM-SULFAMETHOXAZOLE Inac tive PROVIGIL 100 MG TABS Take one by mouth daily 4 PROVIGIL 100 MG TABS 073341 MODAFINIL Inactive FUROSEMIDE 40 MG TABS 1 by mouth daily FU ROSEMIDE 40 MG TABS 145694 FUROSEMIDE Inactive KLOR-CON 20 MEQ PACK Take one by mouth daily 8 KLOR-CON 20 MEQ PACK 039201 POTASSIUM CHLORIDE Inactive LISINOPRIL 5 MG TABS 1 by mouth every day LISINOPRIL 5 MG TABS 668910 LISINOPRIL Inactive COLCRYS 0.6 MG TABS 1 po q 6 hours prn gout pain 03/02 COLCRYS 0.6 MG TABS 601440 COLCHICINE Inactive JANUVIA 100 MG TABS 1/2 by mouth every day JANUVI A 100 MG TABS SITAGLIPTIN PHOSPHATE Inactive SIMVASTATIN 20 MG TABS 1 tab daily at bedtime SIMVASTATIN 20 MG TABS 845263 SIMVASTATIN Inactive COUMADIN 6 MG TABS 1 by mouth every other day COUMADIN 6 MG TABS 458518 WARFARIN SODIUM Inactive COUMADIN 5 MG TABS 1 by mouth every other day COUMADIN 5 MG TABS 173863 WARFARIN SODIUM Inactive LISINOPRIL 20 MG TABS 1 tab po at HS KOKI NOPRIL 20 MG TABS 118029 LISINOPRIL Inactive LISINOPRIL-HYDROCHLOROTHIAZIDE 20-12.5 MG TABS 1 tab by mouth da rocky LISINOPRIL-HYDROCHLOROTHIAZIDE 20-12.5 MG TABS 852270 LISINOPRIL-HYDROCHLOROTHIAZIDE Inactive POLYTRIM 98489-7.1 UNIT/ML-% SOLN 1 drop in affected e ye every 3 hours while awake x 7 days POLYTRIM 08067-3.1 UNIT/ML-% SOLN 41744 7 POLYMYXIN B-TRIMETHOPRIM Inactive COUMADIN 4 MG TABS 1 tablet daily COUMADIN 4 MG TABS 129952 WARFARIN SODIUM Inactive CLONIDINE HCL 0.1 MG TABS 1 po bid 7 days, then 1/2 tab po b id 7 days CLONIDINE HCL 0.1 MG TABS 271374 CLONIDINE HCL I nactive ALLOPURINOL 300 MG TABS Take 1 tablet by mouth daily 2 ALLOPURINOL 300 MG TABS 621086 ALLOPURINOL Inactive MECLIZINE HCL 25 MG TAB 1 po tid 3 days, then 1/2 tab tid 3 days MECLIZINE HCL 25 MG TAB 353527 MECLIZINE HCL Inactive AMLODIPINE BESYLATE 5 MG TABS 1 tablet by mouth daily AMLODIPINE BESYLATE 5 MG TABS 383834 AMLODIPINE BESYLATE Inactive LOVENOX 100 MG/ML SC SOLN One injection twice a day 09/15/15 LOVENOX 100 MG/ML SC SOLN 385691 ENOXAPARIN SODIUM Inactive Vital Signs Date Name [...] Range Description Chart Maintenance: hemoccult added to [facility] - Chemistry occult blood, stool (E&M) Positive Lab Report: HGBA1C - Chemistry hemoglobin A1C, blood, as % of total hemoglobin 6.6 % 4.3-6.0 Lab Report: Lipid Panel, HEPATIC PANEL, MICROALB/CREAT W/RATIO, HGBA1C, CBC - Chemistry cholesterol, serum 136 mg/dL 370-894 4963/08/09 triglyceride, serum, fasting 187 mg/dL 30-200 HDL [...] 1.0-3.5 Encounters Code Encounter Date Provider Facility CPT-18272 Level 3 Est. Patient 15:10:14 CDT Joe kamara [facility] CPT-01438 Level 3 Est. Patient 15:03:46 CDT Joe kamara [facility] CPT-47368 Level 3 Est. Patient 14:21:06 CDT Mitch luis [facility] CPT-07310 Level 3 Est. Patient 14:52:06 CDT Joe kamara [facility] CPT-06059 Level 3 Est. Patient 09:34:30 MEDIA SERVICES DIRECTOR Mitch luis [facility] CPT-97352 Level 3 Est. Patient 09:37:15 CDT Mitch luis [facility] CPT-52430 Level 3 Est. Patient 17:01:00 MEDIA SERVICES DIRECTOR Mitch luis [facility] CPT-74661 Level 3 Est. Patient 13:53:19 MEDIA SERVICES DIRECTOR Mitch luis [facility] CPT-07941 Level 3 Est. Patient 19:19:37 MEDIA SERVICES DIRECTOR Mitch luis [facility] CPT-27314 Level 3 Est. Patient 13:25:53 MEDIA SERVICES DIRECTOR Tavo toure MD [facility] CPT-45454 Level 3 Est. Patient 18:17:28 CDT Mitch luis [facility] CPT-05356 Level 3 Est. Patient 15:22:57 CDT Mitch Arnol luis DO [facility] CPT-66618 Level 3 Est. Patient 18:21:50 CDT Mitch W L janelle [facility] CPT-72469 Level 3 Est. Patient 18:20:38 CDT Mitch Anrol luis [facility] CPT-45003 Level 3 Est. Patient 15:37:55 CDT Mitch Arnol luis [facility] CPT-08188 Level 2 Est. Patient 15:54:44 CDT Carmine benton MD [facility] CPT-01806 Level 3 Est. Patient 21:46:01 MEDIA SERVICES DIRECTOR Mitch luis [facility] CPT-49394 Level 3 Est. Patient 22:15:50 CDT Mitch Arnol luis [facility] CPT-91866 Level 3 Est. Patient 10:48:15 CDT Mitch luis [facility] CPT-40197 Level 3 Est. Patient 23:20:57 CDT Tavo toure MD [facility] CPT-06744 Level 3 Est. Patient 16:26:13 CDT Mitch Castellano janelle [facility] Procedures Code Procedure Name Date Entry Date Standard Desc ription CPT-35213 PT/INR - LAB USE ONLY 13:32:49 MEDIA SERVICES DIRECTOR CPT-21387 Venipuncture Draw Fee 13:32:49 MEDIA SERVICES DIRECTOR CPT-79202 PT/INR - LAB USE ONLY 10:34:49 MEDIA SERVICES DIRECTOR CPT-84837 Venipuncture Draw Fee 10:34:48 MEDIA SERVICES DIRECTOR CPT-41032 PT/INR - LAB USE ONLY 09:22:03 MEDIA SERVICES DIRECTOR CPT-87089 Venipuncture Draw Fee 09:22:02 MEDIA SERVICES DIRECTOR CPT-25633 Hemoccult IFOBT - LAB USE ONLY 10:27:22 CDT CPT-81592 Venipuncture Draw Fee 08:27:08 CDT CPT-63700 Liver Profile - LAB USE ONLY 08:27:07 CDT 2 CPT-28001 Microalbumin - LAB USE ONLY 08:27:07 CDT 20 25/05/09 CPT-60061 PT/INR - LAB USE ONLY 08:27:07 CDT CPT-63333 HGBA1C - LAB USE ONLY 08:27:07 CDT CPT-81159 CBC - LAB USE ONLY 08:27:07 CDT CPT-05445 Venipuncture Draw Fee 11:09:14 CDT CPT-65587 Venipuncture Draw Fee 08:32:21 MEDIA SERVICES DIRECTOR CPT-29118 Venipuncture Draw Fee 09:38:56 MEDIA SERVICES DIRECTOR CPT-78652 No Charge Offi Visit 21:36:07 CDT 1 CPT-22168 Venipuncture Draw Fee 10:13:28 MEDIA SERVICES DIRECTOR CPT-38229 Venipuncture Draw Fee 08:31:11 CDT CPT-79340 Aspir/Inject Med Joint 18:17:28 CDT CPT-58467 Venipuncture Draw Fee 10:13:30 CDT CPT-42942 Venipuncture Draw Fee 08:31:43 MEDIA SERVICES DIRECTOR CPT-JTINJ Joint Injection 18:34:50 CDT CPT-65667 Knee 3V 12:25:09 CDT CPT-76802 Venipuncture Draw Fee 12:15:57 CDT CPT-060 Medical Surveillance Exam 21:31:43 CDT 2011 CPT-45829 Venipuncture Draw Fee 08:32:05 MEDIA SERVICES DIRECTOR CPT-OV Office Visit 18:19:06 CDT
--- OUTSIDE RECORDS SUMMARY | 2020-01-18 12:29 | XMS REPORT | Clinical Summary ---
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 3 Active Mitch Urbina DO Osteoarthrosis, unsp ecified whether generalized or localized, involving lower leg DIZZINESS 780.4 Active Mitch Urbina DO D izziness and giddiness CAROTID BRUIT, LEFT 785.9 Active iMtch Urbina DO Other symptoms involving cardiovascular system [...] 1 tablet by mouth daily AMLODIPINE BESYLATE 08448388616 Active Mitch Urbina DO Active MECLIZINE HCL 25 MG TAB 1 po tid 3 days, then 1/2 tab tid 3 days MECLIZINE HCL 21767753729 No Longer Active Corey SEGURA Active ALLOPURINOL 300 MG TABS Take 1 tablet by mouth daily 2 ALLOPURINOL 84482855311 No Longer Active Corey SEGURA Activ e CLONIDINE HCL 0.1 MG TABS 1 po bid 7 days, then 1/2 tab po b id 7 days CLONIDINE HCL 66208956188 No Longer Active Corey SEGURA Active COUMADIN 5 MG TABS 1 tab PO daily WARFARIN SODIUM 25241906176 Active Mitch Urbina DO Active COUMADIN 4 MG TABS 1 tablet daily WARFARIN SODI UM 50348340099 No Longer Active Corey SEGURA Active POLYTRIM 60490-4.1 UNIT/ML-% SOLN 1 drop in affected e ye every 3 hours while awake x 7 days POLYMYXIN B-TRIMETHOPRIM 81949010278 N o Longer Active Corey SEGURA Active LOSARTAN POTASSIUM-HCTZ 100-12.5 MG TABS 1 by mouth da [place] for high blood pressure LOSARTAN POTASSIUM-HCTZ 43128617700 Active Stephy Urbina DO Active LISINOPRIL-HYDROCHLOROTHIAZIDE 20-12.5 MG TABS 1 tab by mouth da rocky LISINOPRIL-HYDROCHLOROTHIAZIDE 59101564962 No Longer Active Mitch luis DO Active LISINOPRIL 20 MG TABS 1 tab po at HS LISINOPRIL 96017873808 No Longer Active Mitch Urbina DO Active COUMADIN 5 MG TABS 1 by mouth every other day WARFARIN SODIUM 82505494650 No Longer Active Mitch Urbina DO Active COUMADIN 6 MG TABS 1 by mouth every other day WARFARIN SODIUM 52823099749 No Longer Active Mitch Urbina DO Active COLCRYS 0.6 MG TABS 1 tab qid prn gout COLCHICINE 10853277579 Active Mitch Urbina DO Active SIMVASTATIN 40 MG TABS 1 tab daily at bedtime S IMVASTATIN 27749530302 Active Mitch Urbina DO Active SIMVASTATIN 20 MG TABS 1 tab daily at bedtime S IMVASTATIN 57778822239 No Longer Active Mitch Urbina DO Active LOVENOX 100 MG/ML SC SOLN One injection twice a day 09/15/15 ENOXAPARIN SODIUM 54730774021 No Longer Active Carmine Navarrete ctive JANUVIA 50 MG TABS Take one by mouth daily DIEGO GLIPTIN PHOSPHATE 12929215651 Active Mitch Urbina DO Active JANUVIA 100 MG TABS 1/2 by mouth every day DIEGO GLIPTIN PHOSPHATE 98815126029 No Longer Active Bijal Philipp RN Active METFORMIN HCL 500 MG TABS 2 by mouth twice daily METFORMIN HCL 57606289575 Active Mitch Urbina DO Active GLIMEPIRIDE 4 MG TABS 1 tab po bid GLIMEPIRIDE 600045 70140 Active Mitch Urbina DO Active COLCRYS 0.6 MG TABS 1 po q 6 hours prn gout pain 03/02 COLCHICINE 23091676709 No Longer Active Camila Reese Active LISINOPRIL 5 MG TABS 1 by mouth every day LISIN OPRIL 65272959019 No Longer Active Nguyen Perez Active KLOR-CON 20 MEQ PACK Take one by mouth daily 8 POTASSIUM CHLORIDE 15509374497 No Longer Active Nguyen Perez Active FUROSEMIDE 40 MG TABS 1 by mouth daily FUROSEMI DE 41773242247 No Longer Active Nguyen Perez Active PROVIGIL 200 MG TABS 1/2 tab po q day MODAFINIL 86355 689715 Active Mitch Urbina DO Active PROVIGIL 100 MG TABS Take one by mouth daily MO DAFINIL 37117102858 No Longer Active Mitch Urbina DO Active BACTRIM DS 800-160 MG TAB 1 tab by mouth twice daily 2 TRIMETHOPRIM-SULFAMETHOXAZOLE 21168814675 No Longer Active Renan Hays MD Active FAMOTIDINE 20 MG TABS by mouth twice a day FAMOTI DINE 89865531910 Active Mitch Urbina DO Active ADULT ASPIRIN LOW STRENGTH 81 MG TBDP 1 by mouth every daily ASPIRIN 82679801656 Active Mitch Urbina DO Active METOPROLOL TARTRATE 50 MG TABS 1 by mouth twice daily METOPROLOL TARTRATE 75224746041 Active Mitch W [place] DO Active BACTRIM DS 800-160 MG TAB 1 tab by mouth twice daily 2 BACTRIM DS 800-160 MG TAB TRIMETHOPRIM-SULFAMETHOXAZOLE Inac tive PROVIGIL 100 MG TABS Take one by mouth daily 4 PROVIGIL 100 MG TABS 210400 MODAFINIL Inactive FUROSEMIDE 40 MG TABS 1 by mouth daily FU ROSEMIDE 40 MG TABS 321026 FUROSEMIDE Inactive KLOR-CON 20 MEQ PACK Take one by mouth daily 8 KLOR-CON 20 MEQ PACK 005624 POTASSIUM CHLORIDE Inactive LISINOPRIL 5 MG TABS 1 by mouth every day LISINOPRIL 5 MG TABS 161921 LISINOPRIL Inactive COLCRYS 0.6 MG TABS 1 po q 6 hours prn gout pain 03/02 COLCRYS 0.6 MG TABS COLCHICINE Inactive JANUVIA 100 MG TABS 1/2 by mouth every day JANUVI A 100 MG TABS SITAGLIPTIN PHOSPHATE Inactive SIMVASTATIN 20 MG TABS 1 tab daily at bedtime SIMVASTATIN 20 MG TABS 756177 SIMVASTATIN Inactive COUMADIN 6 MG TABS 1 by mouth every other day COUMADIN 6 MG TABS 055538 WARFARIN SODIUM Inactive COUMADIN 5 MG TABS 1 by mouth every other day COUMADIN 5 MG TABS 940045 WARFARIN SODIUM Inactive LISINOPRIL 20 MG TABS 1 tab po at HS KOKI NOPRIL 20 MG TABS 661569 LISINOPRIL Inactive LISINOPRIL-HYDROCHLOROTHIAZIDE 20-12.5 MG TABS 1 tab by mouth da rocky LISINOPRIL-HYDROCHLOROTHIAZIDE 20-12.5 MG TABS 499055 LISINOPRIL-HYDROCHLOROTHIAZIDE Inactive POLYTRIM 57424-9.1 UNIT/ML-% SOLN 1 drop in affected e ye every 3 hours while awake x 7 days POLYTRIM 41138-8.1 UNIT/ML-% SOLN 90853 7 POLYMYXIN B-TRIMETHOPRIM Inactive COUMADIN 4 MG TABS 1 tablet daily COUMADIN 4 MG TABS 883299 WARFARIN SODIUM Inactive CLONIDINE HCL 0.1 MG TABS 1 po bid 7 days, then 1/2 tab po b id 7 days CLONIDINE HCL 0.1 MG TABS 578468 CLONIDINE HCL I nactive ALLOPURINOL 300 MG TABS Take 1 tablet by mouth daily 2 ALLOPURINOL 300 MG TABS 811545 ALLOPURINOL Inactive MECLIZINE HCL 25 MG TAB 1 po tid 3 days, then 1/2 tab tid 3 days MECLIZINE HCL 25 MG TAB 759054 MECLIZINE HCL Inactive LOVENOX 100 MG/ML SC SOLN One injection twice a day 09/15/15 LOVENOX 100 MG/ML SC SOLN 772701 ENOXAPARIN SODIUM Inactive Vital Signs Date Name [...] 10.3 mg/dL 2.6-7.2 sodium, serum 136 mmol/L 795-351 9476/07/25 potassium, serum 4.6 mmol/L 3.5-5.2 chloride, serum [...] MICROALBUMIN, Uric Acid - Hematology mean corpuscular volume, RBC 80 fL 80-97 mean corpuscular hemoglobin, RBC 25.6 pg 27. 0-31.2 mean corpuscular hemoglobin concentration, RBC 32.0 G/DL % 31.8-35.4 red blood cell distribution width 18.3 % 11 .6-14.8 platelet count 277 10^3/MM^3 10*3/mm3 898-486 2566/07/25 hematocrit, blood 40.1 % 41.0-53.0 hemoglobin, blood 12.8 g/dL 13.5-17.5 erythrocyte (RBC) count 5.02 10^6/MM^3 10*6/mm3 4.69-6.1 3 leukocyte count, blood 6.6 10^3/MM^3 10*3/mm3 4.6-10.2 Lab Report: CBC, Comp. Metabolic Panel, HGBA1C, MICROALBUMIN, Uric Acid - Lab microalbumin, urine 30 0-19 Lab Report: Comp. Metabolic Panel, HGBA1 C, Lipid Panel - Chemistry sodium, serum 137 mmol/L 032-759 9127/11/14 carbon dioxide, venous blood 33.0 mmol/L 21.0-32 [...] 8.0 % 4.3-6.0 cholesterol, serum 130 mg/dL 618-416 9277/11/14 triglyceride, serum, fasting 288 mg/dL 30-200 HDL cholesterol, serum 33 mg/dL 32-96 LDL cholesterol, serum 39 mg/dL 0-130 potassium, serum 4.4 mmol/L 3.5-5.2 chloride, serum 100 mmol/L 98-107 Lab Report: Comp. Metabolic Panel, HGBA1 C, Lipid Panel, Prothrombin Time - Chemistry sodium, serum 136 mmol/L 764-957 3766/12/02 potassium, serum 4.4 mmol/L 3.5-5.2 chloride, serum [...] 7.6 % 4.3-6.0 cholesterol, serum 117 mg/dL 113-568 0924/12/02 triglyceride, serum, fasting 226 mg/dL 30-200 HDL [...] (INR) 2.2 1.0-3.5 international normalized ratio (INR) 2.2 1.0-3.5 prothrombin time (patient) 18.4 SECS s 11.1-13.4 prothrombin time (patient) 19.9 SECS s 11.1-13.4 international normalized ratio (INR) 2.6 1.0-3.5 prothrombin time (patient) 18.4 SECS s 11.1-13.4 international normalized ratio (INR) 2.2 1.0-3.5 prothrombin time (patient) 16.0 SECS s 11.1-13.4 international normalized ratio (INR) 1.7 1.0-3.5 Encounters Code Encounter Date Provider Facility CPT-94669 Level 3 Est. Patient 17:01:00 TRIM SAWYER Mitch luis DO [facility] CPT-94830 Level 3 Est. Patient 13:53:19 TRIM SAWYER Mitch Ambrose L janelle DO [facility] CPT-98502 Level 3 Est. Patient 19:19:37 TRIM SAWYER Mitch W L janelle [facility] CPT-61486 Level 3 Est. Patient 13:25:53 TRIM SAWYER Tavo toure MD [facility]-74444 Level 3 Est. Patient 18:17:28 CDT Mitch Ambrose L janelle [facility] CPT-14876 Level 3 Est. Patient 15:22:57 CDT Mitch Arnol L janelle [facility] CPT-14242 Level 3 Est. Patient 18:21:50 CDT Mitch W L janelle [facility]-22978 Level 3 Est. Patient 18:20:38 CDT Mitch Arnol L janelle [facility] CPT-18308 Level 3 Est. Patient 15:37:55 CDT Mitch Arnol L janelle [facility] CPT-51304 Level 2 Est. Patient 15:54:44 CDT Carmine benton MD [facility]-18026 Level 3 Est. Patient 21:46:01 TRIM SAWYER Mitch luis [facility] CPT-89989 Level 3 Est. Patient 22:15:50 CDT Mitch W L janelle [facility] CPT-57250 Level 3 Est. Patient 10:48:15 CDT Mitch Ambrose L janelle [facility] CPT-97808 Level 3 Est. Patient 23:20:57 CDT Tavo toure MD [facility] CPT-03703 Level 3 Est. Patient 16:26:13 CDT Mitch luis DO [facility] Procedures Code Procedure Name Date Entry Date Standard Desc ription CPT-61705 Venipuncture Draw Fee 10:13:28 TRIM SAWYER CPT-13880 Venipuncture Draw Fee 08:31:11 CDT CPT-87532 Aspir/Inject Med Joint 18:17:28 CDT CPT-65941 Venipuncture Draw Fee 10:13:30 CDT CPT-90037 Venipuncture Draw Fee 08:31:43 TRIM SAWYER CPT-JTINJ Joint Injection 18:34:50 CDT CPT-12293 Knee 3V 12:25:09 CDT CPT-65847 Venipuncture Draw Fee 12:15:57 CDT CPT-060 Medical Surveillance Exam 21:31:43 CDT 2011 CPT-05629 Venipuncture Draw Fee 08:32:05 TRIM SAWYER CPT-OV Office Visit 18:19:06 CDT
--- OUTSIDE RECORDS SUMMARY | 2020-01-18 12:29 | XMS REPORT | Clinical Summary ---
Author Author Admin, Mitch Leon Organization [facility] Address Unknown Phone Unavailable Allergies, Adverse [...] Coronary atherosclerosis of unspecified type of vessel, [place] or graft EDEMA 782.3 Resolved Mitch [...] ( 6mg total ) 2015 WARFARIN SODIUM 76546052876 Active Domi Rivera MA Acti ve INVOKANA 100 MG ORAL TABS 1 tablet orally daily CANAGLIFLOZIN 20606258608 Active Kathie Jaun RPT,RMA Active MINOXIDIL 2.5 MG TABS 1 tablet daily for high blood pressure 10/23 MINOXIDIL 17696033596 Active Mitch Urbina DO Active AMLODIPINE BESYLATE 5 MG TABS 1 tablet by mouth daily AMLODIPINE BESYLATE 61392896225 Active Domi Rivera MA Active MECLIZINE HCL 25 MG TAB 1 po tid 3 days, then 1/2 tab tid 3 days MECLIZINE HCL 73853884628 No Longer Active Corey SEGURA Active ALLOPURINOL 300 MG TABS Take 1 tablet by mouth daily 2 ALLOPURINOL 43764782547 No Longer Active Corey SEGURA Activ e CLONIDINE HCL 0.1 MG TABS 1 po bid 7 days, then 1/2 tab po b id 7 days CLONIDINE HCL 81590854350 No Longer Active Corey SEGURA Active COUMADIN 5 MG TABS 1 tab PO daily WARFARIN SODIUM 74408713994 Active Domi Rivera MA Active COUMADIN 4 MG TABS 1 tablet daily WARFARIN SODI UM 03770685411 No Longer Active Corey SEGURA Active POLYTRIM 55233-4.1 UNIT/ML-% SOLN 1 drop in affected e ye every 3 hours while awake x 7 days POLYMYXIN B-TRIMETHOPRIM 18803640658 N o Longer Active Corey SEGURA Active LOSARTAN POTASSIUM-HCTZ 100-12.5 MG TABS 1 by mouth da rocky for high blood pressure LOSARTAN POTASSIUM-HCTZ 97737485174 Active Domi Rivera MA Active LISINOPRIL-HYDROCHLOROTHIAZIDE 20-12.5 MG TABS 1 tab by mouth da rocky LISINOPRIL-HYDROCHLOROTHIAZIDE 50339190130 No Longer Active Mitch luis DO Active LISINOPRIL 20 MG TABS 1 tab po at HS LISINOPRIL 75938160213 No Longer Active Mitch Urbina DO Active COUMADIN 5 MG TABS 1 by mouth every other day WARFARIN SODIUM 18900284668 No Longer Active Mitch Urbina DO Active COUMADIN 6 MG TABS 1 by mouth every other day WARFARIN SODIUM 55392365030 No Longer Active Mitch Urbina DO Active COLCRYS 0.6 MG TABS 1 tab qid prn gout COLCHICINE 21725863002 Active Corey SEGURA Active SIMVASTATIN 40 MG TABS 1 tab daily at bedtime S IMVASTATIN 44832858825 Active Domi Rivera MA Active SIMVASTATIN 20 MG TABS 1 tab daily at bedtime S IMVASTATIN 35201847800 No Longer Active Mitch Urbina DO Active LOVENOX 100 MG/ML SC SOLN One injection twice a day 09/15/15 ENOXAPARIN SODIUM 79228733892 No Longer Active Carmine Navarrete ctive JANUVIA 50 MG TABS Take one by mouth daily DIEGO GLIPTIN PHOSPHATE 24824910797 Active Domi Rivera MA Active JANUVIA 100 MG TABS 1/2 by mouth every day DIEGO GLIPTIN PHOSPHATE 62384199742 No Longer Active Bijal Segal RN Active METFORMIN HCL 500 MG TABS 2 by mouth twice daily METFORMIN HCL 44619893201 Active Kathie Juan RPT,RMA Active GLIMEPIRIDE 4 MG TABS 1 tab po bid GLIMEPIRIDE 956190 07539 Active Kathie Juan RPT,RMA Active COLCRYS 0.6 MG TABS 1 po q 6 hours prn gout pain 03/02 COLCHICINE 66871343216 No Longer Active Camila Reese Active LISINOPRIL 5 MG TABS 1 by mouth every day LISIN OPRIL 46659441216 No Longer Active Nguyen Perez Active KLOR-CON 20 MEQ PACK Take one by mouth daily 8 POTASSIUM CHLORIDE 96560278168 No Longer Active Nguyen Perez Active FUROSEMIDE 40 MG TABS 1 by mouth daily FUROSEMI DE 21209581548 No Longer Active Nguyenmolly Perez Active PROVIGIL 200 MG TABS 1/2 tab po q day MODAFINIL 54641 092621 Active Domi Rivera MA Active PROVIGIL 100 MG TABS Take one by mouth daily MO DAFINIL 48173423172 No Longer Active Mitch Urbina DO Active BACTRIM DS 800-160 MG TAB 1 tab by mouth twice daily 2 TRIMETHOPRIM-SULFAMETHOXAZOLE 32780510088 No Longer Active Renan Hays MD Active FAMOTIDINE 20 MG TABS by mouth twice a day FAMOTI DINE 19004193271 Active Mitch Urbina DO Active ADULT ASPIRIN LOW STRENGTH 81 MG TBDP 1 by mouth every daily ASPIRIN 73963057497 Active Mitch Urbina DO Active METOPROLOL TARTRATE 50 MG TABS 1 by mouth twice daily METOPROLOL TARTRATE 52304016389 Active Domi Rivera MA Active BACTRIM DS 800-160 MG TAB 1 tab by mouth twice daily 2 BACTRIM DS 800-160 MG TAB 251872 TRIMETHOPRIM-SULFAMETHOXAZOLE Inac tive PROVIGIL 100 MG TABS Take one by mouth daily 4 PROVIGIL 100 MG TABS 092954 MODAFINIL Inactive FUROSEMIDE 40 MG TABS 1 by mouth daily FU ROSEMIDE 40 MG TABS 798855 FUROSEMIDE Inactive KLOR-CON 20 MEQ PACK Take one by mouth daily 8 KLOR-CON 20 MEQ PACK 431453 POTASSIUM CHLORIDE Inactive LISINOPRIL 5 MG TABS 1 by mouth every day LISINOPRIL 5 MG TABS 899834 LISINOPRIL Inactive COLCRYS 0.6 MG TABS 1 po q 6 hours prn gout pain 03/02 COLCRYS 0.6 MG TABS 878907 COLCHICINE Inactive JANUVIA 100 MG TABS 1/2 by mouth every day JANUVI A 100 MG TABS SITAGLIPTIN PHOSPHATE Inactive SIMVASTATIN 20 MG TABS 1 tab daily at bedtime SIMVASTATIN 20 MG TABS 292386 SIMVASTATIN Inactive COUMADIN 6 MG TABS 1 by mouth every other day COUMADIN 6 MG TABS 586075 WARFARIN SODIUM Inactive COUMADIN 5 MG TABS 1 by mouth every other day COUMADIN 5 MG TABS 559083 WARFARIN SODIUM Inactive LISINOPRIL 20 MG TABS 1 tab po at HS KOKI NOPRIL 20 MG TABS 482218 LISINOPRIL Inactive LISINOPRIL-HYDROCHLOROTHIAZIDE 20-12.5 MG TABS 1 tab by mouth da rocky LISINOPRIL-HYDROCHLOROTHIAZIDE 20-12.5 MG TABS 524038 LISINOPRIL-HYDROCHLOROTHIAZIDE Inactive POLYTRIM 68688-0.1 UNIT/ML-% SOLN 1 drop in affected e ye every 3 hours while awake x 7 days POLYTRIM 12198-7.1 UNIT/ML-% SOLN 70179 7 POLYMYXIN B-TRIMETHOPRIM Inactive COUMADIN 4 MG TABS 1 tablet daily COUMADIN 4 MG TABS 218885 WARFARIN SODIUM Inactive CLONIDINE HCL 0.1 MG TABS 1 po bid 7 days, then 1/2 tab po b id 7 days CLONIDINE HCL 0.1 MG TABS 850628 CLONIDINE HCL I nactive ALLOPURINOL 300 MG TABS Take 1 tablet by mouth daily 2 ALLOPURINOL 300 MG TABS 364956 ALLOPURINOL Inactive MECLIZINE HCL 25 MG TAB 1 po tid 3 days, then 1/2 tab tid 3 days MECLIZINE HCL 25 MG TAB 173330 MECLIZINE HCL Inactive LOVENOX 100 MG/ML SC SOLN One injection twice a day 09/15/15 LOVENOX 100 MG/ML SC SOLN 646575 ENOXAPARIN SODIUM Inactive Vital Signs Date Name [...] Range Description Chart Maintenance: [facility] - Chemistry occult blood, stool (E&M) Positive [...] Ag - Chemistry sodium, serum 141 mmol/L 017-858 9819/07/06 potassium, serum 4.4 mmol/L 3.5-5.2 chloride, serum [...] - Chem istry sodium, serum 136 mmol/L 271-265 7554/01/14 carbon dioxide, venous blood 25.4 mmol/L 21.0-32 [...] 7.0 % 4.3-6.0 cholesterol, serum 120 mg/dL 100-029 8818/07/06 triglyceride, serum, fasting 186 mg/dL 30-200 HDL [...] 1.0-3.5 Encounters Code Encounter Date Provider Facility CPT-58445 Level 3 Est. 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 CPT-73922 Level 3 Est. Patient 09:37:15 CDT Mitch luis [facility] CPT-89230 Level 3 Est. Patient 17:01:00 WOOD CARVING LATHE OPERATOR Mitch luis [facility] CPT-20806 Level 3 Est. Patient 13:53:19 WOOD CARVING LATHE OPERATOR Mitch luis [facility] CPT-36242 Level 3 Est. Patient 19:19:37 WOOD CARVING LATHE OPERATOR Mitch luis [facility] CPT-88381 Level 3 Est. Patient 13:25:53 WOOD CARVING LATHE OPERATOR Tavo toure MD [facility] CPT-80563 Level 3 Est. Patient 18:17:28 CDT Mitch luis [facility] CPT-03541 Level 3 Est. Patient 15:22:57 CDT Mitch luis [facility] CPT-89823 Level 3 Est. Patient 18:21:50 CDT Mitch luis [facility] CPT-14654 Level 3 Est. Patient 18:20:38 CDT Mitch luis [facility] CPT-08834 Level 3 Est. Patient 15:37:55 CDT Mitch luis [facility] CPT-76582 Level 2 Est. Patient 15:54:44 CDT Carmine benton MD [facility] CPT-59241 Level 3 Est. Patient 21:46:01 WOOD CARVING LATHE OPERATOR Mitch luis [facility] CPT-58600 Level 3 Est. Patient 22:15:50 CDT Mitch luis [facility] CPT-76919 Level 3 Est. Patient 10:48:15 CDT Mitch luis [facility] CPT-05663 Level 3 Est. Patient 23:20:57 CDT Tavo toure MD [facility] CPT-57560 Level 3 Est. Patient 16:26:13 CDT Mitch luis [facility] Procedures Code Procedure Name Date Entry Date Standard Desc ription CPT-11503 Venipuncture Draw Fee 08:32:21 WOOD CARVING LATHE OPERATOR CPT-92582 Venipuncture Draw Fee 09:38:56 WOOD CARVING LATHE OPERATOR CPT-73758 No Charge Offi Visit 21:36:07 CDT 1 CPT-20241 Venipuncture Draw Fee 10:13:28 WOOD CARVING LATHE OPERATOR CPT-52970 Venipuncture Draw Fee 08:31:11 CDT CPT-08304 Aspir/Inject Med Joint 18:17:28 CDT CPT-05850 Venipuncture Draw Fee 10:13:30 CDT CPT-55443 Venipuncture Draw Fee 08:31:43 WOOD CARVING LATHE OPERATOR CPT-JTINJ Joint Injection 18:34:50 CDT CPT-00394 Knee 3V 12:25:09 CDT CPT-68887 Venipuncture Draw Fee 12:15:57 CDT CPT-060 Medical Surveillance Exam 21:31:43 CDT 2011 CPT-02384 Venipuncture Draw Fee 08:32:05 WOOD CARVING LATHE OPERATOR CPT-OV Office Visit 18:19:06 CDT
--- OUTSIDE RECORDS SUMMARY | 2020-01-18 12:29 | XMS REPORT | Clinical Summary ---
[...] Coronary atherosclerosis of unspecified type of vessel, [place] or graft EDEMA 782.3 Active Mitch Urbina [...] 1 tablet by mouth daily AMLODIPINE BESYLATE 56394476981 Active Mitch Urbina DO Active MECLIZINE HCL 25 MG TAB 1 po tid 3 days, then 1/2 tab tid 3 days MECLIZINE HCL 13305185409 No Longer Active Corey SEGURA Active ALLOPURINOL 300 MG TABS Take 1 tablet by mouth daily 2 ALLOPURINOL 80023482345 No Longer Active Corey SEGURA Activ e CLONIDINE HCL 0.1 MG TABS 1 po bid 7 days, then 1/2 tab po b id 7 days CLONIDINE HCL 59178685204 No Longer Active Corey SEGURA Active COUMADIN 5 MG TABS 1 tab PO daily WARFARIN SODIUM 81821294375 Active Mitch Urbina DO Active COUMADIN 4 MG TABS 1 tablet daily WARFARIN SODI UM 12414776143 No Longer Active Corey SEGURA Active POLYTRIM 17759-4.1 UNIT/ML-% SOLN 1 drop in affected e ye every 3 hours while awake x 7 days POLYMYXIN B-TRIMETHOPRIM 53566972708 N o Longer Active Corey SEGURA Active LOSARTAN POTASSIUM-HCTZ 100-12.5 MG TABS 1 by mouth [place] for high blood pressure LOSARTAN POTASSIUM-HCTZ 37797445783 Active Stephy Urbina DO Active LISINOPRIL-HYDROCHLOROTHIAZIDE 20-12.5 MG TABS 1 tab by mouth da rocky LISINOPRIL-HYDROCHLOROTHIAZIDE 01404989964 No Longer Active Mitch luis DO Active LISINOPRIL 20 MG TABS 1 tab po at HS LISINOPRIL 67916459158 No Longer Active Mitch Urbina DO Active COUMADIN 5 MG TABS 1 by mouth every other day WARFARIN SODIUM 57914002363 No Longer Active Mitch Urbina DO Active COUMADIN 6 MG TABS 1 by mouth every other day WARFARIN SODIUM 24310968250 No Longer Active Mitch Urbina DO Active COLCRYS 0.6 MG TABS 1 tab qid prn gout COLCHICINE 84868321956 Active Mitch Urbina DO Active SIMVASTATIN 40 MG TABS 1 tab daily at bedtime S IMVASTATIN 62590020433 Active Mitch Urbina DO Active SIMVASTATIN 20 MG TABS 1 tab daily at bedtime S IMVASTATIN 40717770152 No Longer Active Mitch Urbina DO Active LOVENOX 100 MG/ML SC SOLN One injection twice a day 09/15/15 ENOXAPARIN SODIUM 55852867761 No Longer Active Carmine Navarrete ctive JANUVIA 50 MG TABS Take one by mouth daily DIEGO GLIPTIN PHOSPHATE 13888867699 Active Mitch Urbina DO Active JANUVIA 100 MG TABS 1/2 by mouth every day DIEGO GLIPTIN PHOSPHATE 21894820491 No Longer Active Bijal Philipp RN Active METFORMIN HCL 500 MG TABS 2 by mouth twice daily METFORMIN HCL 20995177864 Active Mitch Urbina DO Active GLIMEPIRIDE 4 MG TABS 1 tab po bid GLIMEPIRIDE 136865 03036 Active Mitch Urbina DO Active COLCRYS 0.6 MG TABS 1 po q 6 hours prn gout pain 03/02 COLCHICINE 53361435909 No Longer Active Camila Reese Active LISINOPRIL 5 MG TABS 1 by mouth every day LISIN OPRIL 05411501393 No Longer Active Nguyenmolly Perez Active KLOR-CON 20 MEQ PACK Take one by mouth daily 8 POTASSIUM CHLORIDE 73460948764 No Longer Active Nguyen Perez Active FUROSEMIDE 40 MG TABS 1 by mouth daily FUROSEMI DE 03022994644 No Longer Active Nguyen Perez Active PROVIGIL 200 MG TABS 1/2 tab po q day MODAFINIL 68303 451826 Active Mitch Urbina DO Active PROVIGIL 100 MG TABS Take one by mouth daily MO DAFINIL 89600218350 No Longer Active Mitch Urbina DO Active BACTRIM DS 800-160 MG TAB 1 tab by mouth twice daily 2 TRIMETHOPRIM-SULFAMETHOXAZOLE 04937867315 No Longer Active Renan Hays MD Active FAMOTIDINE 20 MG TABS by mouth twice a day FAMOTI DINE 86509746585 Active Mitch Urbina DO Active ADULT ASPIRIN LOW STRENGTH 81 MG TBDP 1 by mouth every daily ASPIRIN 38033765249 Active Mitch Urbina DO Active METOPROLOL TARTRATE 50 MG TABS 1 by mouth twice daily METOPROLOL TARTRATE 71722604036 Active Mitch W [place] DO Active BACTRIM DS 800-160 MG TAB 1 tab by mouth twice daily 2 BACTRIM DS 800-160 MG TAB TRIMETHOPRIM-SULFAMETHOXAZOLE Inac tive PROVIGIL 100 MG TABS Take one by mouth daily 4 PROVIGIL 100 MG TABS 159116 MODAFINIL Inactive FUROSEMIDE 40 MG TABS 1 by mouth daily FU ROSEMIDE 40 MG TABS 979231 FUROSEMIDE Inactive KLOR-CON 20 MEQ PACK Take one by mouth daily 8 KLOR-CON 20 MEQ PACK 226162 POTASSIUM CHLORIDE Inactive LISINOPRIL 5 MG TABS 1 by mouth every day LISINOPRIL 5 MG TABS 796654 LISINOPRIL Inactive COLCRYS 0.6 MG TABS 1 po q 6 hours prn gout pain 03/02 COLCRYS 0.6 MG TABS COLCHICINE Inactive JANUVIA 100 MG TABS 1/2 by mouth every day JANUVI A 100 MG TABS SITAGLIPTIN PHOSPHATE Inactive SIMVASTATIN 20 MG TABS 1 tab daily at bedtime SIMVASTATIN 20 MG TABS 960552 SIMVASTATIN Inactive COUMADIN 6 MG TABS 1 by mouth every other day COUMADIN 6 MG TABS 662320 WARFARIN SODIUM Inactive COUMADIN 5 MG TABS 1 by mouth every other day COUMADIN 5 MG TABS 048811 WARFARIN SODIUM Inactive LISINOPRIL 20 MG TABS 1 tab po at HS KOKI NOPRIL 20 MG TABS 069250 LISINOPRIL Inactive LISINOPRIL-HYDROCHLOROTHIAZIDE 20-12.5 MG TABS 1 tab by mouth da rocky LISINOPRIL-HYDROCHLOROTHIAZIDE 20-12.5 MG TABS 570084 LISINOPRIL-HYDROCHLOROTHIAZIDE Inactive POLYTRIM 32350-2.1 UNIT/ML-% SOLN 1 drop in affected e ye every 3 hours while awake x 7 days POLYTRIM 99211-0.1 UNIT/ML-% SOLN 74614 7 POLYMYXIN B-TRIMETHOPRIM Inactive COUMADIN 4 MG TABS 1 tablet daily COUMADIN 4 MG TABS 302648 WARFARIN SODIUM Inactive CLONIDINE HCL 0.1 MG TABS 1 po bid 7 days, then 1/2 tab po b id 7 days CLONIDINE HCL 0.1 MG TABS 842998 CLONIDINE HCL I nactive ALLOPURINOL 300 MG TABS Take 1 tablet by mouth daily 2 ALLOPURINOL 300 MG TABS 850359 ALLOPURINOL Inactive MECLIZINE HCL 25 MG TAB 1 po tid 3 days, then 1/2 tab tid 3 days MECLIZINE HCL 25 MG TAB 165065 MECLIZINE HCL Inactive LOVENOX 100 MG/ML SC SOLN One injection twice a day 09/15/15 LOVENOX 100 MG/ML SC SOLN 449780 ENOXAPARIN SODIUM Inactive Vital Signs Date Name [...] 10.3 mg/dL 2.6-7.2 sodium, serum 136 mmol/L 590-912 8578/07/25 potassium, serum 4.6 mmol/L 3.5-5.2 chloride, serum [...] Panel - Chemistry sodium, serum 137 mmol/L 528-617 0499/11/14 potassium, serum 4.4 mmol/L 3.5-5.2 chloride, serum [...] 8.0 % 4.3-6.0 cholesterol, serum 130 mg/dL 659-805 0075/11/14 triglyceride, serum, fasting 288 mg/dL 30-200 HDL cholesterol, serum 33 mg/dL 32-96 LDL cholesterol, serum 39 mg/dL 0-130 Lab Report: Comp. Metabolic Panel, HGBA1 C, Lipid Panel, Prothrombin Time - Chemistry sodium, serum 136 mmol/L 069-225 5106/12/02 potassium, serum 4.4 mmol/L 3.5-5.2 chloride, serum [...] 7.6 % 4.3-6.0 cholesterol, serum 117 mg/dL 904-765 8545/12/02 triglyceride, serum, fasting 226 mg/dL 30-200 HDL [...] 1.0-3.5 Encounters Code Encounter Date Provider Facility CPT-97369 Level 3 Est. 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 Patient 19:19:37 BALL POINTS INSPECTOR Mitch luis [facility] CPT-70421 Level 3 Est. 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 Patient 18:17:28 CDT Mitch luis [facility] CPT-41518 Level 3 Est. Patient 15:22:57 CDT Mitch luis [facility] CPT-58608 Level 3 Est. Patient 18:21:50 CDT Mitch Ambrose L janelle [facility] CPT-37282 Level 3 Est. Patient 18:20:38 CDT Mitch Ambrose L janelle [facility] CPT-09191 Level 3 Est. Patient 15:37:55 CDT Mitch W L janelle [facility] CPT-85748 Level 2 Est. Patient 15:54:44 CDT Carmine benton MD [facility]-38079 Level 3 Est. Patient 21:46:01 BALL POINTS INSPECTOR Mitch luis [facility] CPT-54719 Level 3 Est. Patient 22:15:50 CDT Mitch luis [facility] CPT-81492 Level 3 Est. Patient 10:48:15 CDT Mitch luis [facility] CPT-66216 Level 3 Est. Patient 23:20:57 CDT Tavo toure MD [facility] CPT-79537 Level 3 Est. Patient 16:26:13 CDT Mitch luis [facility] Procedures Code Procedure Name Date Entry Date Standard Desc ription CPT-45277 Venipuncture Draw Fee 10:13:28 BALL POINTS INSPECTOR CPT-04745 Venipuncture Draw Fee 08:31:11 CDT CPT-89035 Aspir/Inject Med Joint 18:17:28 CDT CPT-71210 Venipuncture Draw Fee 10:13:30 CDT CPT-90056 Venipuncture Draw Fee 08:31:43 BALL POINTS INSPECTOR CPT-JTINJ Joint Injection 18:34:50 CDT CPT-09778 Knee 3V 12:25:09 CDT CPT-77281 Venipuncture Draw Fee 12:15:57 CDT CPT-060 Medical Surveillance Exam 21:31:43 CDT 2011 CPT-44560 Venipuncture Draw Fee 08:32:05 BALL POINTS INSPECTOR CPT-OV Office Visit 18:19:06 CDT
--- OUTSIDE RECORDS SUMMARY | 2020-01-18 12:29 | XMS REPORT | Clinical Summary ---
Author Author Admin, Mitch Leon Organization [facility] Address Unknown Phone Unavailable Allergies, Adverse [...] [place] or graft EDEMA 782.3 Active Mitch Urbina [...] 1 tablet by mouth daily AMLODIPINE BESYLATE 33911041587 Active Mitch Urbina DO Active MECLIZINE HCL 25 MG TAB 1 po tid 3 days, then 1/2 tab tid 3 days MECLIZINE HCL 56979289120 No Longer Active Corey SEGURA Active ALLOPURINOL 300 MG TABS Take 1 tablet by mouth daily 2 ALLOPURINOL 57024374383 No Longer Active Corey SEGURA Activ e CLONIDINE HCL 0.1 MG TABS 1 po bid 7 days, then 1/2 tab po b id 7 days CLONIDINE HCL 35251126520 No Longer Active Corey SEGURA Active COUMADIN 5 MG TABS 1 tab PO daily WARFARIN SODIUM 04235541361 Active Mitch Urbina DO Active COUMADIN 4 MG TABS 1 tablet daily WARFARIN SODI UM 31488824846 No Longer Active Corey SEGURA Active POLYTRIM 62864-9.1 UNIT/ML-% SOLN 1 drop in affected e ye every 3 hours while awake x 7 days POLYMYXIN B-TRIMETHOPRIM 28767199653 N o Longer Active Corey SEGURA Active LOSARTAN POTASSIUM-HCTZ 100-12.5 MG TABS 1 by mouth da [place] for high blood pressure LOSARTAN POTASSIUM-HCTZ 81837078919 Active Stephy Urbina DO Active LISINOPRIL-HYDROCHLOROTHIAZIDE 20-12.5 MG TABS 1 tab by mouth da rocky LISINOPRIL-HYDROCHLOROTHIAZIDE 96020932685 No Longer Active Mitch luis DO Active LISINOPRIL 20 MG TABS 1 tab po at HS LISINOPRIL 11031721329 No Longer Active Mitch Urbina DO Active COUMADIN 5 MG TABS 1 by mouth every other day WARFARIN SODIUM 52784623424 No Longer Active Mitch Urbina DO Active COUMADIN 6 MG TABS 1 by mouth every other day WARFARIN SODIUM 26191723196 No Longer Active Mitch Urbina DO Active COLCRYS 0.6 MG TABS 1 tab qid prn gout COLCHICINE 83074125090 Active Corey SEGURA Active SIMVASTATIN 40 MG TABS 1 tab daily at bedtime S IMVASTATIN 68730672159 Active Mitch Urbina DO Active SIMVASTATIN 20 MG TABS 1 tab daily at bedtime S IMVASTATIN 32656133994 No Longer Active Mitch Urbina DO Active LOVENOX 100 MG/ML SC SOLN One injection twice a day 09/15/15 ENOXAPARIN SODIUM 76952925832 No Longer Active Carmine D [place] MD A ctive JANUVIA 50 MG TABS Take one by mouth daily DIEGO GLIPTIN PHOSPHATE 95427824369 Active Corey Arias PA Active JANUVIA 100 MG TABS 1/2 by mouth every day DIEGO GLIPTIN PHOSPHATE 60145649399 No Longer Active Bijalseth Segal RN Active METFORMIN HCL 500 MG TABS 2 by mouth twice daily METFORMIN HCL 66406588714 Active Mitch Urbina DO Active GLIMEPIRIDE 4 MG TABS 1 tab po bid GLIMEPIRIDE 930819 85778 Active Mitch Urbina DO Active COLCRYS 0.6 MG TABS 1 po q 6 hours prn gout pain 03/02 COLCHICINE 64254488042 No Longer Active Camila Reese Active LISINOPRIL 5 MG TABS 1 by mouth every day LISIN OPRIL 86818705503 No Longer Active Nguyenmolly Perez Active KLOR-CON 20 MEQ PACK Take one by mouth daily 8 POTASSIUM CHLORIDE 79202621228 No Longer Active Nguyen Perez Active FUROSEMIDE 40 MG TABS 1 by mouth daily FUROSEMI DE 63946445203 No Longer Active Nguyen Perez Active PROVIGIL 200 MG TABS 1/2 tab po q day MODAFINIL 83196 390224 Active Mitch Urbina DO Active PROVIGIL 100 MG TABS Take one by mouth daily MO DAFINIL 07631484411 No Longer Active Mitch Urbina DO Active BACTRIM DS 800-160 MG TAB 1 tab by mouth twice daily TRIMETHOPRIM-SULFAMETHOXAZOLE 77032457869 No Longer Active Renan Hays MD Active FAMOTIDINE 20 MG TABS by mouth twice a day FAMOTI DINE 03245694892 Active Mitch Urbina DO Active ADULT ASPIRIN LOW STRENGTH 81 MG TBDP 1 by mouth every daily ASPIRIN 02771378498 Active Mitch Urbina DO Active METOPROLOL TARTRATE 50 MG TABS 1 by mouth twice daily METOPROLOL TARTRATE 47489148411 Active Mitch W [place] DO Active BACTRIM DS 800-160 MG TAB 1 tab by mouth twice daily 2 BACTRIM DS 800-160 MG TAB TRIMETHOPRIM-SULFAMETHOXAZOLE Inac tive PROVIGIL 100 MG TABS Take one by mouth daily 4 PROVIGIL 100 MG TABS 117166 MODAFINIL Inactive FUROSEMIDE 40 MG TABS 1 by mouth daily FU ROSEMIDE 40 MG TABS 782698 FUROSEMIDE Inactive KLOR-CON 20 MEQ PACK Take one by mouth daily 8 KLOR-CON 20 MEQ PACK 941227 POTASSIUM CHLORIDE Inactive LISINOPRIL 5 MG TABS 1 by mouth every day LISINOPRIL 5 MG TABS 630412 LISINOPRIL Inactive COLCRYS 0.6 MG TABS 1 po q 6 hours prn gout pain 03/02 COLCRYS 0.6 MG TABS COLCHICINE Inactive JANUVIA 100 MG TABS 1/2 by mouth every day JANUVI A 100 MG TABS SITAGLIPTIN PHOSPHATE Inactive SIMVASTATIN 20 MG TABS 1 tab daily at bedtime SIMVASTATIN 20 MG TABS 119993 SIMVASTATIN Inactive COUMADIN 6 MG TABS 1 by mouth every other day COUMADIN 6 MG TABS 318468 WARFARIN SODIUM Inactive COUMADIN 5 MG TABS 1 by mouth every other day COUMADIN 5 MG TABS 641003 WARFARIN SODIUM Inactive LISINOPRIL 20 MG TABS 1 tab po at HS KOKI NOPRIL 20 MG TABS 310579 LISINOPRIL Inactive LISINOPRIL-HYDROCHLOROTHIAZIDE 20-12.5 MG TABS 1 tab by mouth da rocky LISINOPRIL-HYDROCHLOROTHIAZIDE 20-12.5 MG TABS 216160 LISINOPRIL-HYDROCHLOROTHIAZIDE Inactive POLYTRIM 46505-4.1 UNIT/ML-% SOLN 1 drop in affected e ye every 3 hours while awake x 7 days POLYTRIM 70824-4.1 UNIT/ML-% SOLN 21112 7 POLYMYXIN B-TRIMETHOPRIM Inactive COUMADIN 4 MG TABS 1 tablet daily COUMADIN 4 MG TABS 637267 WARFARIN SODIUM Inactive CLONIDINE HCL 0.1 MG TABS 1 po bid 7 days, then 1/2 tab po b id 7 days CLONIDINE HCL 0.1 MG TABS 862293 CLONIDINE HCL I nactive ALLOPURINOL 300 MG TABS Take 1 tablet by mouth daily 2 ALLOPURINOL 300 MG TABS 636853 ALLOPURINOL Inactive MECLIZINE HCL 25 MG TAB 1 po tid 3 days, then 1/2 tab tid 3 days MECLIZINE HCL 25 MG TAB 422847 MECLIZINE HCL Inactive LOVENOX 100 MG/ML SC SOLN One injection twice a day 09/15/15 LOVENOX 100 MG/ML SC SOLN 175596 ENOXAPARIN SODIUM Inactive Vital Signs Date Name [...] 10.3 mg/dL 2.6-7.2 sodium, serum 136 mmol/L 316-986 2622/07/25 potassium, serum 4.6 mmol/L 3.5-5.2 chloride, serum [...] Panel - Chemistry sodium, serum 137 mmol/L 034-052 5279/11/14 potassium, serum 4.4 mmol/L 3.5-5.2 chloride, serum [...] 8.0 % 4.3-6.0 cholesterol, serum 130 mg/dL 835-712 8655/11/14 triglyceride, serum, fasting 288 mg/dL 30-200 HDL cholesterol, serum 33 mg/dL 32-96 LDL cholesterol, serum 39 mg/dL 0-130 Lab Report: Comp. Metabolic Panel, HGBA1 C, Lipid Panel, Prothrombin Time - Chemistry sodium, serum 136 mmol/L 846-418 3836/12/02 potassium, serum 4.4 mmol/L 3.5-5.2 chloride, serum [...] 7.6 % 4.3-6.0 cholesterol, serum 117 mg/dL 560-659 7369/12/02 triglyceride, serum, fasting 226 mg/dL 30-200 HDL [...] 1.0-3.5 Encounters Code Encounter Date Provider Facility CPT-56174 Level 3 Est. Patient 17:01:00 DESKTOP ANALYST Mitch luis [facility] CPT-93535 Level 3 Est. Patient 13:53:19 DESKTOP ANALYST Mitch luis [facility] CPT-01568 Level 3 Est. Patient 19:19:37 DESKTOP ANALYST Mitch luis [facility] CPT-85903 Level 3 Est. Patient 13:25:53 DESKTOP ANALYST Tavo toure MD [facility] CPT-42844 Level 3 Est. Patient 18:17:28 CDT iMtch luis [facility] CPT-66821 Level 3 Est. Patient 15:22:57 CDT Mitch luis [facility] CPT-14732 Level 3 Est. Patient 18:21:50 CDT Mitch luis [facility] CPT-22962 Level 3 Est. Patient 18:20:38 CDT Mitch luis [facility] CPT-54020 Level 3 Est. Patient 15:37:55 CDT Mitch luis [facility] CPT-74961 Level 2 Est. Patient 15:54:44 CDT Carmine benton MD [facility] CPT-77722 Level 3 Est. Patient 21:46:01 DESKTOP ANALYST Mitch luis [facility] CPT-62122 Level 3 Est. Patient 22:15:50 CDT Mitch luis [facility] CPT-09429 Level 3 Est. Patient 10:48:15 CDT Mitch luis [facility] CPT-37849 Level 3 Est. Patient 23:20:57 CDT Tavo toure MD [facility] CPT-91029 Level 3 Est. Patient 16:26:13 CDT Mitch luis [facility] Procedures Code Procedure Name Date Entry Date Standard Desc ription CPT-70473 Venipuncture Draw Fee 10:13:28 DESKTOP ANALYST CPT-46321 Venipuncture Draw Fee 08:31:11 CDT CPT-67731 Aspir/Inject Med Joint 18:17:28 CDT CPT-40139 Venipuncture Draw Fee 10:13:30 CDT CPT-58822 Venipuncture Draw Fee 08:31:43 DESKTOP ANALYST CPT-JTINJ Joint Injection 18:34:50 CDT CPT-83420 Knee 3V 12:25:09 CDT CPT-92451 Venipuncture Draw Fee 12:15:57 CDT CPT-060 Medical Surveillance Exam 21:31:43 CDT 2011 CPT-74217 Venipuncture Draw Fee 08:32:05 DESKTOP ANALYST CPT-OV Office Visit 18:19:06 CDT
--- OUTSIDE RECORDS SUMMARY | 2020-01-18 12:30 | XMS REPORT | Clinical Summary ---
Author Author Admin, Mitch Leon Organization [facility] Address Unknown Phone Unavailable Allergies, [...] ORAL TABLET 1 po BID GLIMEPIRID E 39122290659 Active Ana Wallace Active KEFLEX 500 MG ORAL CAPSULE 1 po qid CEPHALEXI N 57415068828 No Longer Active Mitch Urbina DO Active LOSARTAN POTASSIUM 100 MG ORAL TABLET 1 pill by mouth daily, for blood pressure LOSARTAN POTASSIUM 95409743615 Active Ana Wallace Active AMLODIPINE BESYLATE 5 MG ORAL TABLET 1 tablet by mouth daily 201 01/20/04 AMLODIPINE BESYLATE 01725765671 No Longer Active Devonjustincarlitos fulton ANNIE Active MITIGARE 0.6 MG ORAL CAPSULE 2 capsules at onset of go ut pain, then take one capsule at 1 hour if symptoms persist. COLCHICINE 59 928855423 Active Mitch Urbina DO Active COUMADIN 1 MG ORAL TABLET 2 tabs orally daily with the 5mg tab to equal 7mg daily WARFARIN SODIUM 48589603613 Active Ana Wallace Active COLCRYS 0.6 MG ORAL TABLET 1 tab qid prn gout C OLCHICINE 92782994643 Active Norma Cazares Active INVOKANA 100 MG ORAL TABLET 1 tablet orally daily CANAGLIFLOZIN 26353115955 Active Mitch Urbina DO Active MINOXIDIL 2.5 MG ORAL TABLET 1 tablet daily for high blood press ure MINOXIDIL 75235212894 Active Mitch Urbina DO Active MECLIZINE HCL 25 MG ORAL TABLET 1 po tid 3 days, then 1/2 ta b tid 3 days MECLIZINE HCL 26099418105 No Longer Active Corey SEGURA Active ALLOPURINOL 300 MG ORAL TABLET Take 1 tablet by mouth daily 2012 ALLOPURINOL 08869789976 No Longer Active Corey SEGURA Active CLONIDINE HCL 0.1 MG ORAL TABLET 1 po bid 7 days, then 1/2 t ab po bid 7 days CLONIDINE HCL 24512653428 No Longer Active Corey SEGURA Active COUMADIN 5 MG ORAL TABLET 1 tab PO daily WARFAR IN SODIUM 23866587322 Active Mitch Urbina DO Active COUMADIN 4 MG ORAL TABLET 1 tablet daily WARFAR IN SODIUM 96382541392 No Longer Active Corey SEGURA Active POLYTRIM 05496-8.1 UNIT/ML-% OPHTHALMIC SOLUTION 1 rui p in affected eye every 3 hours while awake x 7 days POLYMYXIN B-TRIMETHOP RIM 80590754258 No Longer Active Corey SEGURA Active LOSARTAN POTASSIUM-HCTZ 100-12.5 MG ORAL TABLET 1 by m outh daily for high blood pressure LOSARTAN POTASSIUM-HCTZ 59615122250 No Longer A ctive Mitch Urbina DO Active LISINOPRIL-HYDROCHLOROTHIAZIDE 20-12.5 MG ORAL TABLET 1 tab by m outh daily LISINOPRIL-HYDROCHLOROTHIAZIDE 66929094350 No Longer Active Mitch Urbina DO Active LISINOPRIL 20 MG ORAL TABLET 1 tab po at HS LIS INOPRIL 26460948159 No Longer Active Mitch Urbina DO Active COUMADIN 5 MG ORAL TABLET 1 by mouth every other day 2 WARFARIN SODIUM 79556206899 No Longer Active Mitch Uribna DO Active COUMADIN 6 MG ORAL TABLET 1 by mouth every other day 2 WARFARIN SODIUM 40266668635 No Longer Active Mitch Urbina DO Active SIMVASTATIN 40 MG ORAL TABLET 1 tab daily at bedtime SIMVASTATIN 69986800788 Active Mitch Urbina DO Active SIMVASTATIN 20 MG ORAL TABLET 1 tab daily at bedtime 2 SIMVASTATIN 04109534029 No Longer Active Mitch Urbina DO Active LOVENOX 100 MG/ML SUBCUTANEOUS SOLUTION One injection twice a da y ENOXAPARIN SODIUM 47052733449 No Longer Active Carmine Yusuf MD Active JANUVIA 50 MG ORAL TABLET Take one by mouth daily SITAGLIPTIN PHOSPHATE 65270811298 Active Mitch Urbina DO Active JANUVIA 100 MG ORAL TABLET 1/2 by mouth every day 2011 SITAGLIPTIN PHOSPHATE 07833898053 No Longer Active Bijal Segal RN Acti ve METFORMIN HCL 500 MG ORAL TABLET 2 by mouth twice daily METFORMIN HCL 07392854452 Active Mitch Urbina DO Active COLCRYS 0.6 MG ORAL TABLET 1 po q 6 hours prn gout pain COLCHICINE 76712352820 No Longer Active Camila Reese Active LISINOPRIL 5 MG ORAL TABLET 1 by mouth every day 11/17 LISINOPRIL 69081338921 No Longer Active Nguyen Coekman Active KLOR-CON 20 MEQ ORAL PACKET Take one by mouth daily 20 09/10/08 POTASSIUM CHLORIDE 97150928299 No Longer Active Nguyen Coekman Active FUROSEMIDE 40 MG ORAL TABLET 1 by mouth daily F UROSEMIDE 89602736487 No Longer Active Nguyen Coekman Active PROVIGIL 200 MG ORAL TABLET 1/2 tab po q day MODA FINIL 51727021710 Active Mitch Urbina DO Active PROVIGIL 100 MG ORAL TABLET Take one by mouth daily 20 08/20/04 MODAFINIL 95753577988 No Longer Active Mitch Urbina DO Active BACTRIM DS 800-160 MG ORAL TABLET 1 tab by mouth twice daily 201 10/19/09 TRIMETHOPRIM-SULFAMETHOXAZOLE 66436362390 No Longer Active Elain Hays MD Active FAMOTIDINE 20 MG ORAL TABLET by mouth twice a day FAMOTIDINE 53635881121 Active Mitch Urbina DO Active ADULT ASPIRIN LOW STRENGTH 81 MG ORAL TABLET DISINTEGR ATING 1 by mouth every daily ASPIRIN 73996591820 Active Mitch Urbina DO Ac tive METOPROLOL TARTRATE 50 MG ORAL TABLET 1 by mouth twice daily METOPROLOL TARTRATE 99704288180 Active Mitch Urbina DO Active ALLOPURINOL 300 MG ORAL TABLET Take 1 tablet by mouth daily 2012 ALLOPURINOL 300 MG ORAL TABLET 589341 ALLOPURINOL I nactive BACTRIM DS 800-160 MG ORAL TABLET 1 tab by mouth twice daily 201 10/19/09 BACTRIM DS 800-160 MG ORAL TABLET 600792 TRIMETHOPRIM-SULFAMETHOXAZOLE Inactive CLONIDINE HCL 0.1 MG ORAL TABLET 1 po bid 7 days, then 1/2 t ab po bid 7 days CLONIDINE HCL 0.1 MG ORAL TABLET 273280 CLONIDIN E HCL Inactive COUMADIN 5 MG ORAL TABLET 1 by mouth every other day 2 COUMADIN 5 MG ORAL TABLET 284484 WARFARIN SODIUM Inactive FUROSEMIDE 40 MG ORAL TABLET 1 by mouth daily FUROSEMIDE 40 MG ORAL TABLET 406857 FUROSEMIDE Inactive KEFLEX 500 MG ORAL CAPSULE 1 po qid K EFLEX 500 MG ORAL CAPSULE 200159 CEPHALEXIN Inactive KLOR-CON 20 MEQ ORAL PACKET Take one by mouth daily 09/10/08 KLOR- CON 20 MEQ ORAL PACKET 3344293 POTASSIUM CHLORIDE Inactive LISINOPRIL 20 MG ORAL TABLET 1 tab po at HS LISINOPRIL 20 MG ORAL TABLET 753787 LISINOPRIL Inactive POLYTRIM 62809-9.1 UNIT/ML-% OPHTHALMIC SOLUTION 1 rui p in affected eye every 3 hours while awake x 7 days POLYTRIM 1000 0-0.1 UNIT/ML-% OPHTHALMIC SOLUTION 111373 POLYMYXIN B-TRIMETHOPRIM Inactive AMLODIPINE BESYLATE 5 MG ORAL TABLET 1 tablet by mouth daily 201 01/20/04 AMLODIPINE BESYLATE 5 MG ORAL TABLET 917094 AMLODIPINE BESYLATE Inactive LISINOPRIL 5 MG ORAL TABLET 1 by mouth every day 11/17 LISINOPRIL 5 MG ORAL TABLET 661352 LISINOPRIL Inactive LISINOPRIL-HYDROCHLOROTHIAZIDE 20-12.5 MG ORAL TABLET 1 tab by m outh daily LISINOPRIL-HYDROCHLOROTHIAZIDE 20-12.5 MG ORAL TABLET 564879 LISINOPRIL-HYDROCHLOROTHIAZIDE Inactive SIMVASTATIN 20 MG ORAL TABLET 1 tab daily at bedtime 2 SIMVASTATIN 20 MG ORAL TABLET 808880 SIMVASTATIN Inactive COUMADIN 4 MG ORAL TABLET 1 tablet daily COUMADIN 4 MG ORAL TABLET 044323 WARFARIN SODIUM Inactive MECLIZINE HCL 25 MG ORAL TABLET 1 po tid 3 days, then 1/2 ta b tid 3 days MECLIZINE HCL 25 MG ORAL TABLET 158347 MECLIZINE HCL Inactive COUMADIN 6 MG ORAL TABLET 1 by mouth every other day 2 COUMADIN 6 MG ORAL TABLET 187200 WARFARIN SODIUM Inactive LOVENOX 100 MG/ML SUBCUTANEOUS SOLUTION One injection twice a da y LOVENOX 100 MG/ML SUBCUTANEOUS SOLUTION 244639 ENOXAPAR IN SODIUM Inactive PROVIGIL 100 MG ORAL TABLET Take one by mouth daily 08/20/04 PROVIGIL 100 MG ORAL TABLET 373996 MODAFINIL Inactive JANUVIA 100 MG ORAL TABLET 1/2 by mouth every day 2011 JANUVIA 100 MG ORAL TABLET SITAGLIPTIN PHOSPHATE Inactive COLCRYS 0.6 MG ORAL TABLET 1 po q 6 hours prn gout pain COLCRYS 0.6 MG ORAL TABLET 667057 COLCHICINE Inactive Vital Signs Date Name Value Unit [...] - Chem istry sodium, serum 139 mmol/L 650-197 7932/07/17 potassium, serum 4.2 mmol/L 3.5-5.2 chloride, serum 102 mmol/L 98-107 carbon dioxide, venous blood 28.9 mmol/L 21.0-32 .0 blood glucose 211 mg/dL 65-110 calcium, serum 10.6 mg/dL 8.5-10.1 urea nitrogen, blood 29 mg/dL 7-18 creatinine, serum 1.24 mg/dL 0.60-1.30 sodium, serum 141 mmol/L 693-868 1634/08/07 potassium, serum 4.5 mmol/L 3.5-5.2 chloride, serum [...] Stimulating Hormone (L), Pros ... - Chemistry chloride, serum 105 mmol/L 98-107 blood glucose 192 mg/dL 65-110 urea nitrogen, blood 27 mg/dL 7-18 creatinine, serum 1.32 mg/dL 0.55-1.30 alanine aminotransferase (SGPT), serum 32 U/L 12-78 aspartate aminotransferase (SGOT), serum 27 U/L 15-37 calcium, serum 10.5 mg/dL 8.5-10.1 bilirubin, serum, total 0.70 mg/dL 0.00-1.00 TSH 2.49 m[iU]/mL 0.36-3.74 prostate specific antigen 3.14 ng/mL 0.00-4.00 potassium, serum 4.2 mmol/L 3.5-5.2 carbon dioxide, venous blood 26.6 mmol/L 21.0-32 .0 sodium, serum 144 mmol/L 136-145 Lab Report: Lipid Panel, HEPATIC PANEL, HGBA1C - Chemistry hemoglobin A1C, blood, as % of total hemoglobin 6.4 % 4.3-6.0 cholesterol, serum 136 mg/dL 137-146 5675/12/06 triglyceride, serum, fasting 247 mg/dL 30-200 HDL cholesterol, serum 41 mg/dL 32-60 LDL cholesterol, serum 46 mg/dL 0-130 aspartate aminotransferase (SGOT), serum 22 U/L 15-37 alanine aminotransferase (SGPT), serum 30 U/L 12-78 bilirubin, serum, total 0.80 mg/dL 0.00-1.00 Lab Report: Prothrombin Time - Coagulati on prothrombin time (patient) 19.9 SECS s 11.1-13.4 international normalized ratio (INR) 2.4 1.0-3.5 international normalized ratio (INR) 2.7 1.0-3.5 prothrombin time (patient) 21.3 SECS s 11.1-13.4 Encounters Code Encounter Date Provider Facility CPT-40091 Level 3 Est. Patient 18:25:53 CDT Mitch luis [facility] CPT-82784 Level 3 Est. Patient 19:43:34 CDT Mitch luis [facility] CPT-96052 Level 4 Est. Patient 09:30:18 CDT Mitch luis [facility] CPT-92001 Level 3 Est. Patient 15:10:14 CDT Joe kamara [facility] CPT-00589 Level 3 Est. Patient 15:03:46 CDT Joe kamara [facility] CPT-99310 Level 3 Est. Patient 14:21:06 CDT Mitch luis [facility] CPT-94907 Level 3 Est. Patient 14:52:06 CDT Joe kamara [facility] CPT-28041 Level 3 Est. Patient 09:34:30 PROFESSIONAL SYSTEM ADMINISTRATOR Mitch luis [facility] CPT-58290 Level 3 Est. Patient 09:37:15 CDT Mitch W L ee [facility] CPT-97381 Level 3 Est. Patient 17:01:00 PROFESSIONAL SYSTEM ADMINISTRATOR Mitch W L ee DO [facility] CPT-90939 Level 3 Est. Patient 13:53:19 PROFESSIONAL SYSTEM ADMINISTRATOR Mitch W L ee [facility] CPT-46480 Level 3 Est. Patient 19:19:37 PROFESSIONAL SYSTEM ADMINISTRATOR Mitch W L ee [facility] CPT-85907 Level 3 Est. Patient 13:25:53 PROFESSIONAL SYSTEM ADMINISTRATOR Tavo toure MD [facility] CPT-64048 Level 3 Est. Patient 18:17:28 CDT Mitch W L ee [facility] CPT-77359 Level 3 Est. Patient 15:22:57 CDT Mitch W L ee [facility] CPT-41823 Level 3 Est. Patient 18:21:50 CDT Mitch W L ee [facility] CPT-64592 Level 3 Est. Patient 18:20:38 CDT Mitch W L ee [facility] CPT-71106 Level 3 Est. Patient 15:37:55 CDT Mitch W L ee [facility] CPT-10074 Level 2 Est. Patient 15:54:44 CDT Carmine benton MD [facility]-58314 Level 3 Est. Patient 21:46:01 PROFESSIONAL SYSTEM ADMINISTRATOR Mitch W L ee [facility] CPT-78942 Level 3 Est. Patient 22:15:50 CDT Mitch W L ee [facility] CPT-88771 Level 3 Est. Patient 10:48:15 CDT Mitch W L ee [facility] CPT-35939 Level 3 Est. Patient 23:20:57 CDT Tavo toure MD [facility] CPT-21497 Level 3 Est. Patient 16:26:13 CDT Mitch W L [facility] Procedures Code Procedure Name Date Entry Date Standard Desc ription CPT-71832 Venipuncture Draw Fee 09:26:17 CDT CPT-70925 PT/INR - LAB USE ONLY 13:32:49 PROFESSIONAL SYSTEM ADMINISTRATOR CPT-95712 Venipuncture Draw Fee 13:32:49 PROFESSIONAL SYSTEM ADMINISTRATOR CPT-81051 PT/INR - LAB USE ONLY 10:34:49 PROFESSIONAL SYSTEM ADMINISTRATOR CPT-63259 Venipuncture Draw Fee 10:34:48 PROFESSIONAL SYSTEM ADMINISTRATOR CPT-32459 PT/INR - LAB USE ONLY 09:22:03 PROFESSIONAL SYSTEM ADMINISTRATOR CPT-64062 Venipuncture Draw Fee 09:22:02 PROFESSIONAL SYSTEM ADMINISTRATOR CPT-42562 Hemoccult IFOBT - LAB USE ONLY 10:27:22 CDT CPT-91058 Venipuncture Draw Fee 08:27:08 CDT CPT-50456 Liver Profile - LAB USE ONLY 08:27:07 CDT 2 CPT-12969 Microalbumin - LAB USE ONLY 08:27:07 CDT 20 25/05/09 CPT-54334 PT/INR - LAB USE ONLY 08:27:07 CDT CPT-82620 HGBA1C - LAB USE ONLY 08:27:07 CDT CPT-63628 CBC - LAB USE ONLY 08:27:07 CDT CPT-60696 Venipuncture Draw Fee 11:09:14 CDT CPT-84618 Venipuncture Draw Fee 08:32:21 PROFESSIONAL SYSTEM ADMINISTRATOR CPT-80461 Venipuncture Draw Fee 09:38:56 PROFESSIONAL SYSTEM ADMINISTRATOR CPT-50579 No Charge Offi Visit 21:36:07 CDT 1 CPT-15269 Venipuncture Draw Fee 10:13:28 PROFESSIONAL SYSTEM ADMINISTRATOR CPT-06298 Venipuncture Draw Fee 08:31:11 CDT CPT-19468 Aspir/Inject Med Joint 18:17:28 CDT CPT-14840 Venipuncture Draw Fee 10:13:30 CDT CPT-68750 Venipuncture Draw Fee 08:31:43 PROFESSIONAL SYSTEM ADMINISTRATOR CPT-JTINJ Joint Injection 18:34:50 CDT CPT-24294 Knee 3V 12:25:09 CDT CPT-27050 Venipuncture Draw Fee 12:15:57 CDT CPT-060 Medical Surveillance Exam 21:31:43 CDT 2011 CPT-13436 Venipuncture Draw Fee 08:32:05 PROFESSIONAL SYSTEM ADMINISTRATOR CPT-OV Office Visit 18:19:06 CDT
--- OUTSIDE RECORDS SUMMARY | 2020-01-18 12:30 | XMS REPORT | Clinical Summary ---
Author Author Admin, Mitch Leon Organization [facility] [employer] Address Unknown Phone Unavailable Allergies, Adverse Reactions, [...] Coronary atherosclerosis of unspecified type of vessel, ak chin or graft EDEMA 782.3 Resolved Mitch Urbina [...] Mitch W Carlitos DO EDEMA ICD-782.3 Inactive Mitch W Carlitos DO DIZZINESS ICD-780.4 Inactive Mitch [...] by mouth twice a day 2017 FAMOTIDINE 13599072172 No Longer Active Mitch Urbina DO Active COLCRYS 0.6 MG ORAL TABLET 1 tab qid prn gout C OLCHICINE 81324130556 No Longer Active Mitch Urbina DO Active GLIMEPIRIDE 2 MG ORAL TABLET 1 po BID GLIMEPIRID E 32028341932 Active Renee Oconnor [employer] PROFESSIONAL Active KEFLEX 500 MG ORAL CAPSULE 1 po qid CEPHALEXI N 11396215160 No Longer Active Mitch Urbina DO Active LOSARTAN POTASSIUM 100 MG ORAL TABLET 1 pill by mouth daily, for blood pressure LOSARTAN POTASSIUM 85359528868 Active Mitch Urbina DO Active AMLODIPINE BESYLATE 5 MG ORAL TABLET 1 tablet by mouth daily 201 01/20/04 AMLODIPINE BESYLATE 43205604687 No Longer Active Joe fulton APRN Active MITIGARE 0.6 MG ORAL CAPSULE 2 capsules at onset of go ut pain, then take one capsule at 1 hour if symptoms persist. COLCHICINE 59 667075357 Active Mitch Urbina DO Active COUMADIN 1 MG ORAL TABLET 2 tabs orally daily with the 5mg tab to equal 7mg daily WARFARIN SODIUM 62443592239 Active Ana Wallace Active INVOKANA 100 MG ORAL TABLET 1 tablet orally daily CANAGLIFLOZIN 10890163062 Active Mitch Urbina DO Active MINOXIDIL 2.5 MG ORAL TABLET 1 tablet daily for high blood press ure MINOXIDIL 57477865168 Active Mitch Urbina DO Active MECLIZINE HCL 25 MG ORAL TABLET 1 po tid 3 days, then 1/2 ta b tid 3 days MECLIZINE HCL 92866007671 No Longer Active Corey SEGURA Active ALLOPURINOL 300 MG ORAL TABLET Take 1 tablet by mouth daily 2012 ALLOPURINOL 33112279306 No Longer Active Corey SEGURA Active CLONIDINE HCL 0.1 MG ORAL TABLET 1 po bid 7 days, then 1/2 t ab po bid 7 days CLONIDINE HCL 76806546103 No Longer Active Corey SEGURA Active COUMADIN 5 MG ORAL TABLET 1 tab PO daily WARFAR IN SODIUM 30698867558 Active Mitch Urbina DO Active COUMADIN 4 MG ORAL TABLET 1 tablet daily WARFAR IN SODIUM 17650108190 No Longer Active Corey SEGURA Active POLYTRIM 92734-7.1 UNIT/ML-% OPHTHALMIC SOLUTION 1 rui p in affected eye every 3 hours while awake x 7 days POLYMYXIN B-TRIMETHOP RIM 19055075401 No Longer Active Corey SEGURA Active LOSARTAN POTASSIUM-HCTZ 100-12.5 MG ORAL TABLET 1 by m outh daily for high blood pressure LOSARTAN POTASSIUM-HCTZ 18147504441 No Longer A ctive Mitch Urbina DO Active LISINOPRIL-HYDROCHLOROTHIAZIDE 20-12.5 MG ORAL TABLET 1 tab by m outh daily LISINOPRIL-HYDROCHLOROTHIAZIDE 17328537534 No Longer Active Mitch Urbina DO Active LISINOPRIL 20 MG ORAL TABLET 1 tab po at HS LIS INOPRIL 31911551514 No Longer Active Mitch Urbina DO Active COUMADIN 5 MG ORAL TABLET 1 by mouth every other day 2 WARFARIN SODIUM 77647840798 No Longer Active Mitch Urbina DO Active COUMADIN 6 MG ORAL TABLET 1 by mouth every other day 2 WARFARIN SODIUM 96559359398 No Longer Active Mitch Urbina DO Active SIMVASTATIN 40 MG ORAL TABLET 1 tab daily at bedtime SIMVASTATIN 66906159703 Active Renee Oconnor LPN Active SIMVASTATIN 20 MG ORAL TABLET 1 tab daily at bedtime 2 SIMVASTATIN 50154690469 No Longer Active Mitch Urbina DO Active LOVENOX 100 MG/ML SUBCUTANEOUS SOLUTION One injection twice a da y ENOXAPARIN SODIUM 38615566909 No Longer Active Carmine Yusuf MD Active JANUVIA 50 MG ORAL TABLET Take one by mouth daily SITAGLIPTIN PHOSPHATE 39962546904 Active Mitch Urbina DO Active JANUVIA 100 MG ORAL TABLET 1/2 by mouth every day 2011 SITAGLIPTIN PHOSPHATE 68111596415 No Longer Active Bijal Segal RN Acti ve METFORMIN HCL 500 MG ORAL TABLET 2 by mouth twice daily METFORMIN HCL 73098535116 Active Mitch Urbina DO Active COLCRYS 0.6 MG ORAL TABLET 1 po q 6 hours prn gout pain COLCHICINE 18058302009 No Longer Active Camila Reese Active LISINOPRIL 5 MG ORAL TABLET 1 by mouth every day 11/17 LISINOPRIL 23979491176 No Longer Active Nguyen Perez Active KLOR-CON 20 MEQ ORAL PACKET Take one by mouth daily 09/10/08 POTASSIUM CHLORIDE 48507484185 No Longer Active Nguyen Perez Active FUROSEMIDE 40 MG ORAL TABLET 1 by mouth daily F UROSEMIDE 67558487815 No Longer Active Nguyen Perez Active PROVIGIL 200 MG ORAL TABLET 1/2 tab po q day MODA FINIL 48520294077 Active Renee Oconnor LPN Active PROVIGIL 100 MG ORAL TABLET Take one by mouth daily 08/20/04 MODAFINIL 92857287491 No Longer Active Mitch Urbina DO Active BACTRIM DS 800-160 MG ORAL TABLET 1 tab by mouth twice daily 201 10/19/09 TRIMETHOPRIM-SULFAMETHOXAZOLE 42895265981 No Longer Active Elian Hays MD Active ADULT ASPIRIN LOW STRENGTH 81 MG ORAL TABLET DISINTEGR ATING 1 by mouth every daily ASPIRIN 31322207080 Active Mitch Urbina DO Ac tive METOPROLOL TARTRATE 50 MG ORAL TABLET 1 by mouth twice daily METOPROLOL TARTRATE 63975432189 Active Mitch Urbina DO Active BACTRIM DS 800-160 MG ORAL TABLET 1 tab by mouth twice daily 201 10/19/09 BACTRIM DS 800-160 MG ORAL TABLET 018218 TRIMETHOPRIM-SULFAMETHOXAZOLE Inactive PROVIGIL 100 MG ORAL TABLET Take one by mouth daily 20 08/20/04 PROVIGIL 100 MG ORAL TABLET 518649 MODAFINIL Inactive FUROSEMIDE 40 MG ORAL TABLET 1 by mouth daily FUROSEMIDE 40 MG ORAL TABLET 096676 FUROSEMIDE Inactive KLOR-CON 20 MEQ ORAL PACKET Take one by mouth daily 09/10/08 KLOR- CON 20 MEQ ORAL PACKET 0876388 POTASSIUM CHLORIDE Inactive LISINOPRIL 5 MG ORAL TABLET 1 by mouth every day 11/17 LISINOPRIL 5 MG ORAL TABLET 055676 LISINOPRIL Inactive COLCRYS 0.6 MG ORAL TABLET 1 po q 6 hours prn gout pain COLCRYS 0.6 MG ORAL TABLET 044062 COLCHICINE Inactive JANUVIA 100 MG ORAL TABLET 1/2 by mouth every day 2011 JANUVIA 100 MG ORAL TABLET SITAGLIPTIN PHOSPHATE Inactive SIMVASTATIN 20 MG ORAL TABLET 1 tab daily at bedtime 2 SIMVASTATIN 20 MG ORAL TABLET 719923 SIMVASTATIN Inactive COUMADIN 6 MG ORAL TABLET 1 by mouth every other day COUMADIN 6 MG ORAL TABLET 982874 WARFARIN SODIUM Inactive COUMADIN 5 MG ORAL TABLET 1 by mouth every other day 2 COUMADIN 5 MG ORAL TABLET 582960 WARFARIN SODIUM Inactive LISINOPRIL 20 MG ORAL TABLET 1 tab po at HS LISINOPRIL 20 MG ORAL TABLET 020368 LISINOPRIL Inactive LISINOPRIL-HYDROCHLOROTHIAZIDE 20-12.5 MG ORAL TABLET 1 tab by m outh daily LISINOPRIL-HYDROCHLOROTHIAZIDE 20-12.5 MG ORAL TABLET 811811 LISINOPRIL-HYDROCHLOROTHIAZIDE Inactive POLYTRIM 84313-3.1 UNIT/ML-% OPHTHALMIC SOLUTION 1 rui p in affected eye every 3 hours while awake x 7 days POLYTRIM 1000 0-0.1 UNIT/ML-% OPHTHALMIC SOLUTION 160368 POLYMYXIN B-TRIMETHOPRIM Inactive COUMADIN 4 MG ORAL TABLET 1 tablet daily COUMADIN 4 MG ORAL TABLET 621730 WARFARIN SODIUM Inactive CLONIDINE HCL 0.1 MG ORAL TABLET 1 po bid 7 days, then 1/2 t ab po bid 7 days CLONIDINE HCL 0.1 MG ORAL TABLET 302390 CLONIDIN E HCL Inactive ALLOPURINOL 300 MG ORAL TABLET Take 1 tablet by mouth daily 2012 ALLOPURINOL 300 MG ORAL TABLET 484575 ALLOPURINOL I nactive MECLIZINE HCL 25 MG ORAL TABLET 1 po tid 3 days, then 1/2 ta b tid 3 days MECLIZINE HCL 25 MG ORAL TABLET 939310 MECLIZINE HCL Inactive AMLODIPINE BESYLATE 5 MG ORAL TABLET 1 tablet by mouth daily 201 01/20/04 AMLODIPINE BESYLATE 5 MG ORAL TABLET 352259 AMLODIPINE BESYLATE Inactive KEFLEX 500 MG ORAL CAPSULE 1 po qid K EFLEX 500 MG ORAL CAPSULE 187694 CEPHALEXIN Inactive COLCRYS 0.6 MG ORAL TABLET 1 tab qid prn gout COLCRYS 0.6 MG ORAL TABLET 670234 COLCHICINE Inactive FAMOTIDINE 20 MG ORAL TABLET by mouth twice a day 2017 FAMOTIDINE 20 MG ORAL TABLET 103448 FAMOTIDINE Inactive LOVENOX 100 MG/ML SUBCUTANEOUS SOLUTION One injection twice a da y LOVENOX 100 MG/ML SUBCUTANEOUS SOLUTION 566491 ENOXAPAR IN SODIUM Inactive Vital Signs Date Name Value Unit Range Description blood pressure, diastolic 81 mm[Hg] BP mane blood pressure, systolic 161 mm[Hg] BP sys height E&M 70 [in_us] Bdy height pulse rate E&M 65 /min Heart rate temperature E&M 98.1 [degF] Body temp erature weight E&M 228.5 [lb_av] Weight Measure d blood pressure, diastolic 82 mm[Hg] BP maen blood pressure, systolic 164 mm[Hg] BP sys [...] weight E&M 225.31 [lb_av] Weight Measure d Diagnostic Results Date Name Value Unit Range Description Lab Report: Basic Metabolic Panel - Chem istry calcium, serum 10.6 mg/dL 8.5-10.1 urea nitrogen, blood 29 mg/dL 7-18 creatinine, serum 1.24 mg/dL 0.60-1.30 blood glucose 211 mg/dL 65-110 carbon dioxide, venous blood 28.9 mmol/L 21.0-32 .0 chloride, serum 102 mmol/L 98-107 carbon dioxide, venous blood 31.7 mmol/L 21.0-32 .0 blood glucose 117 mg/dL 65-110 calcium, serum 10.5 mg/dL 8.5-10.1 urea nitrogen, blood 26 mg/dL 7-18 creatinine, serum 1.15 mg/dL 0.60-1.30 potassium, serum 4.2 mmol/L 3.5-5.2 sodium, serum 139 mmol/L 382-862 0991/08/07 sodium, serum 141 mmol/L 134-370 1081/08/07 potassium, serum 4.5 mmol/L 3.5-5.2 chloride, serum 102 mmol/L 98-107 Lab Report: Lipid Panel, HEPATIC PANEL, HGBA1C - Chemistry cholesterol, serum 136 mg/dL 258-363 8084/12/06 triglyceride, serum, fasting 247 mg/dL 30-200 HDL cholesterol, serum 41 mg/dL 32-60 LDL cholesterol, serum 46 mg/dL 0-130 aspartate aminotransferase (SGOT), serum 22 U/L 15-37 alanine aminotransferase (SGPT), serum 30 U/L 12-78 bilirubin, serum, total 0.80 mg/dL 0.00-1.00 hemoglobin A1C, blood, as % of total hemoglobin 6.4 % 4.3-6.0 Encounters Code Encounter Date Provider Facility CPT-60203 Level 3 Est. Patient 18:25:53 CDT Mitch luis [facility] CPT-72756 Level 3 Est. Patient 19:43:34 CDT Mitch luis [facility] CPT-19757 Level 4 Est. Patient 09:30:18 CDT Mitch luis [facility] CPT-44849 Level 3 Est. Patient 15:10:14 CDT Joe kamara [facility] [place] CPT-28599 Level 3 Est. Patient 15:03:46 CDT Joe kamara [facility] [place] CPT-21080 Level 3 Est. Patient 14:21:06 CDT Mitch Arnol Nona luis [facility] CPT-18282 Level 3 Est. Patient 14:52:06 CDT Joe kamara [facility] [place] CPT-80882 Level 3 Est. Patient 09:34:30 CHAIN BUILDER Mitch Anrol Nona luis [facility] CPT-53565 Level 3 Est. Patient 09:37:15 CDT Mitch luis [facility] CPT-70839 Level 3 Est. Patient 17:01:00 CHAIN BU[address]DER Mitch luis [facility] CPT-29408 Level 3 Est. Patient 13:53:19 CHAIN BU[address]DER Mitch luis [facility] CPT-67604 Level 3 Est. Patient 19:19:37 CHAIN BUILDER Mitch luis [facility] CPT-07273 Level 3 Est. Patient 13:25:53 CHAIN BUILDER Tavo toure MD [facility] CPT-71453 Level 3 Est. Patient 18:17:28 CDT Mitch Arnol luis [facility] CPT-70653 Level 3 Est. Patient 15:22:57 CDT Mitch Arnol luis [facility] CPT-79571 Level 3 Est. Patient 18:21:50 CDT Mitch luis [facility] CPT-97845 Level 3 Est. Patient 18:20:38 CDT Mitch Arnol luis [facility] CPT-87175 Level 3 Est. Patient 15:37:55 CDT Mitch Arnol luis [facility] CPT-27789 Level 2 Est. Patient 15:54:44 CDT Carmine benton MD [facility] CPT-99939 Level 3 Est. Patient 21:46:01 CHAIN BUILDER Mitch luis [facility] CPT-19762 Level 3 Est. Patient 22:15:[address] [facility] CPT-69105 Level 3 Est. Patient 10:48:[address] [facility] CPT-43176 Level 3 Est. Patient 23:20:57 CDT Tavo toure MD [facility] CPT-84662 Level 3 Est. Patient 16:26:[address] [facility] Procedures Code Procedure Name Date Entry Date Standard Desc ription CPT-JTINJ Asp/Joint Injection 18:47:02 CDT CPT-14966 Venipuncture Draw Fee 09:26:17 CDT CPT-55610 PT/INR - LAB USE ONLY 13:32:49 CHAIN BUILDER CPT-01891 Venipuncture Draw Fee 13:32:49 CHAIN BUILDER CPT-97096 PT/INR - LAB USE ONLY 10:34:49 CHAIN BUILDER CPT-60539 Venipuncture Draw Fee 10:34:48 CHAIN BUILDER CPT-36470 PT/INR - LAB USE ONLY 09:22:03 CHAIN BUILDER CPT-60898 Venipuncture Draw Fee 09:22:02 CHAIN BUILDER CPT-08935 Hemoccult IFOBT - LAB USE ONLY 10:27:22 CDT CPT-97794 Venipuncture Draw Fee 08:27:08 CDT CPT-36620 Liver Profile - LAB USE ONLY 08:27:07 CDT 2 CPT-88175 Microalbumin - LAB USE ONLY 08:27:07 CDT 20 25/05/09 CPT-31338 PT/INR - LAB USE ONLY 08:27:07 CDT CPT-99907 HGBA1C - LAB USE ONLY 08:27:07 CDT CPT-90780 CBC - LAB USE ONLY 08:27:07 CDT CPT-61837 Venipuncture Draw Fee 11:09:14 CDT CPT-28667 Venipuncture Draw Fee 08:32:21 CHAIN BUILDER CPT-42485 Venipuncture Draw Fee 09:38:56 CHAIN BUILDER CPT-83682 No Charge Offi Visit 21:36:07 CDT 1 CPT-69353 Venipuncture Draw Fee 10:13:28 CHAIN BUILDER CPT-48450 Venipuncture Draw Fee 08:31:11 CDT CPT-14748 Aspir/Inject Med Joint 18:17:28 CDT CPT-96420 Venipuncture Draw Fee 10:13:30 CDT CPT-46633 Venipuncture Draw Fee 08:31:43 CHAIN BUILDER CPT-JTINJ Joint Injection 18:34:50 CDT CPT-02312 Knee 3V 12:25:09 CDT CPT-04843 Venipuncture Draw Fee 12:15:57 CDT CPT-060 Medical Surveillance Exam 21:31:43 CDT 2011 CPT-61691 Venipuncture Draw Fee 08:32:05 CHAIN BUILDER CPT-OV Office Visit 18:19:06 CDT
--- OUTSIDE RECORDS SUMMARY | 2020-01-18 12:30 | XMS REPORT | Clinical Summary ---
Author Author Admin, Mitch Leon Organization [facility] [employer] Address Unknown Phone Unavailable Allergies, Adverse Reactions, [...] Coronary atherosclerosis of unspecified type of vessel, comanche or graft EDEMA 782.3 Resolved Mitch Urbina [...] 1 tablet by mouth daily AMLODIPINE BESYLATE 71619655419 No Longer Active Joe Williamson APRN Active MITIGARE 0.6 MG ORAL CAPS 2 capsules at onset of gout pain, then take one capsule at 1 hour if symptoms persist. COLCHICINE 59 390329480 Active Mitch Urbina DO Active COUMADIN 1 MG TAB 2 tabs orally daily with the 5mg tab to equal 7mg daily WARFARIN SODIUM 46836078506 Active Mitch Urbina DO Active COLCRYS 0.6 MG TABS 1 tab qid prn gout COLCHICINE 71938632856 Active Norma Cazares Active INVOKANA 100 MG ORAL TABS 1 tablet orally daily CANAGLIFLOZIN 67512868615 Active Brenda Gaymerman Active MINOXIDIL 2.5 MG TABS 1 tablet daily for high blood pressure 10/23 MINOXIDIL 33771958954 Active Ana Wallace Active MECLIZINE HCL 25 MG TAB 1 po tid 3 days, then 1/2 tab tid 3 days MECLIZINE HCL 92179417624 No Longer Active Corey SEGURA Active ALLOPURINOL 300 MG TABS Take 1 tablet by mouth daily 2 ALLOPURINOL 24123807315 No Longer Active Corey SEGURA Activ e CLONIDINE HCL 0.1 MG TABS 1 po bid 7 days, then 1/2 tab po b id 7 days CLONIDINE HCL 57963120935 No Longer Active Corey SEGURA Active COUMADIN 5 MG TABS 1 tab PO daily WARFARIN SODIUM 63535764927 Active Mitch Urbina DO Active COUMADIN 4 MG TABS 1 tablet daily WARFARIN SODI UM 48578435353 No Longer Active Corey SEGURA Active POLYTRIM 32528-0.1 UNIT/ML-% SOLN 1 drop in affected e ye every 3 hours while awake x 7 days POLYMYXIN B-TRIMETHOPRIM 70850080925 N o Longer Active Corey SEGURA Active LOSARTAN POTASSIUM-HCTZ 100-12.5 MG TABS 1 by mouth da rocky for high blood pressure LOSARTAN POTASSIUM-HCTZ 97257671761 Active Stephy Urbina DO Active LISINOPRIL-HYDROCHLOROTHIAZIDE 20-12.5 MG TABS 1 tab by mouth da rocky LISINOPRIL-HYDROCHLOROTHIAZIDE 71061448582 No Longer Active Mitch luis DO Active LISINOPRIL 20 MG TABS 1 tab po at HS LISINOPRIL 91574843618 No Longer Active Mitch Urbina DO Active COUMADIN 5 MG TABS 1 by mouth every other day WARFARIN SODIUM 34786414566 No Longer Active Mitch Urbina DO Active COUMADIN 6 MG TABS 1 by mouth every other day WARFARIN SODIUM 34280725737 No Longer Active Mitch Urbina DO Active SIMVASTATIN 40 MG TABS 1 tab daily at bedtime S IMVASTATIN 08685420126 Active Mitch Urbina DO Active SIMVASTATIN 20 MG TABS 1 tab daily at bedtime S IMVASTATIN 90697743582 No Longer Active Mitch Urbina DO Active LOVENOX 100 MG/ML SC SOLN One injection twice a day 09/15/15 ENOXAPARIN SODIUM 85316221661 No Longer Active Carmine Navarrete ctive JANUVIA 50 MG TABS Take one by mouth daily DIEGO GLIPTIN PHOSPHATE 70369634607 Active Mitch Urbina DO Active JANUVIA 100 MG TABS 1/2 by mouth every day DIEGO GLIPTIN PHOSPHATE 95788530691 No Longer Active Bijal Segal RN Active METFORMIN HCL 500 MG TABS 2 by mouth twice daily METFORMIN HCL 87097649947 Active Mitch Urbina DO Active GLIMEPIRIDE 4 MG TABS 1 tab po bid GLIMEPIRIDE 630230 85603 Active Mitch Urbina DO Active COLCRYS 0.6 MG TABS 1 po q 6 hours prn gout pain 03/02 COLCHICINE 42868286182 No Longer Active Camila Reese Active LISINOPRIL 5 MG TABS 1 by mouth every day LISIN OPRIL 46541197143 No Longer Active Nguyen Perez Active KLOR-CON 20 MEQ PACK Take one by mouth daily 8 POTASSIUM CHLORIDE 81430157006 No Longer Active Nguyen Perez Active FUROSEMIDE 40 MG TABS 1 by mouth daily FUROSEMI DE 95766300175 No Longer Active Nguyen Perez Active PROVIGIL 200 MG TABS 1/2 tab po q day MODAFINIL 46484 337648 Active Kathie Juan RPT,RMA Active PROVIGIL 100 MG TABS Take one by mouth daily MO DAFINIL 95051574679 No Longer Active Mitch Urbina DO Active BACTRIM DS 800-160 MG TAB 1 tab by mouth twice daily 2 TRIMETHOPRIM-SULFAMETHOXAZOLE 96907918076 No Longer Active Renan Hays MD Active FAMOTIDINE 20 MG TABS by mouth twice a day FAMOTI DINE 66756451637 Active Mitch Urbina DO Active ADULT ASPIRIN LOW STRENGTH 81 MG TBDP 1 by mouth every daily ASPIRIN 16775203645 Active Mitch Urbina DO Active METOPROLOL TARTRATE 50 MG TABS 1 by mouth twice daily METOPROLOL TARTRATE 41277412455 Active Mitch Urbina DO Active BACTRIM DS 800-160 MG TAB 1 tab by mouth twice daily 2 BACTRIM DS 800-160 MG TAB 374983 TRIMETHOPRIM-SULFAMETHOXAZOLE Inac tive PROVIGIL 100 MG TABS Take one by mouth daily 4 PROVIGIL 100 MG TABS 644829 MODAFINIL Inactive FUROSEMIDE 40 MG TABS 1 by mouth daily FU ROSEMIDE 40 MG TABS 066677 FUROSEMIDE Inactive KLOR-CON 20 MEQ PACK Take one by mouth daily 8 KLOR-CON 20 MEQ PACK 735394 POTASSIUM CHLORIDE Inactive LISINOPRIL 5 MG TABS 1 by mouth every day LISINOPRIL 5 MG TABS 490545 LISINOPRIL Inactive COLCRYS 0.6 MG TABS 1 po q 6 hours prn gout pain 03/02 COLCRYS 0.6 MG TABS 571348 COLCHICINE Inactive JANUVIA 100 MG TABS 1/2 by mouth every day JANUVI A 100 MG TABS SITAGLIPTIN PHOSPHATE Inactive SIMVASTATIN 20 MG TABS 1 tab daily at bedtime SIMVASTATIN 20 MG TABS 889332 SIMVASTATIN Inactive COUMADIN 6 MG TABS 1 by mouth every other day COUMADIN 6 MG TABS 481436 WARFARIN SODIUM Inactive COUMADIN 5 MG TABS 1 by mouth every other day COUMADIN 5 MG TABS 251312 WARFARIN SODIUM Inactive LISINOPRIL 20 MG TABS 1 tab po at HS KOKI NOPRIL 20 MG TABS 316443 LISINOPRIL Inactive LISINOPRIL-HYDROCHLOROTHIAZIDE 20-12.5 MG TABS 1 tab by mouth da rocky LISINOPRIL-HYDROCHLOROTHIAZIDE 20-12.5 MG TABS 413183 LISINOPRIL-HYDROCHLOROTHIAZIDE Inactive POLYTRIM 38700-7.1 UNIT/ML-% SOLN 1 drop in affected e ye every 3 hours while awake x 7 days POLYTRIM 57866-6.1 UNIT/ML-% SOLN 02300 7 POLYMYXIN B-TRIMETHOPRIM Inactive COUMADIN 4 MG TABS 1 tablet daily COUMADIN 4 MG TABS 842182 WARFARIN SODIUM Inactive CLONIDINE HCL 0.1 MG TABS 1 po bid 7 days, then 1/2 tab po b id 7 days CLONIDINE HCL 0.1 MG TABS 881208 CLONIDINE HCL I nactive ALLOPURINOL 300 MG TABS Take 1 tablet by mouth daily 2 ALLOPURINOL 300 MG TABS 931401 ALLOPURINOL Inactive MECLIZINE HCL 25 MG TAB 1 po tid 3 days, then 1/2 tab tid 3 days MECLIZINE HCL 25 MG TAB 810373 MECLIZINE HCL Inactive AMLODIPINE BESYLATE 5 MG TABS 1 tablet by mouth daily AMLODIPINE BESYLATE 5 MG TABS 827377 AMLODIPINE BESYLATE Inactive LOVENOX 100 MG/ML SC SOLN One injection twice a day 09/15/15 LOVENOX 100 MG/ML SC SOLN 775918 ENOXAPARIN SODIUM Inactive Vital Signs Date Name [...] Range Description Chart Maintenance: hemoccult added to [facility] - Chemistry occult blood, stool (E&M) Positive Lab Report: HGBA1C - Chemistry hemoglobin A1C, blood, as % of total hemoglobin 6.6 % 4.3-6.0 Lab Report: Lipid Panel, HEPATIC PANEL, MICROALB/CREAT W/RATIO, HGBA1C, CBC - Chemistry cholesterol, serum 136 mg/dL 402-007 4591/08/09 triglyceride, serum, fasting 187 mg/dL 30-200 HDL [...] 1.0-3.5 Encounters Code Encounter Date Provider Facility CPT-14225 Level 3 Est. Patient 15:10:14 CDT Joe kamara [facility] CPT-87888 Level 3 Est. Patient 15:03:46 CDT Joe kamara [facility] CPT-86926 Level 3 Est. Patient 14:21:06 CDT Mitch luis [facility] CPT-21407 Level 3 Est. Patient 14:52:06 CDT Joe kamara [facility] CPT-99498 Level 3 Est. Patient 09:34:30 PAEDIATRIC SURGEON Mitch luis [facility] CPT-36624 Level 3 Est. Patient 09:37:15 CDT Mitch luis [facility] CPT-28586 Level 3 Est. Patient 17:01:00 PAEDIATRIC SURGEON Mitch luis [facility] CPT-97547 Level 3 Est. Patient 13:53:19 PAEDIATRIC SURGEON Mitch luis [facility] CPT-63616 Level 3 Est. Patient 19:19:37 PAEDIATRIC SURGEON Mitch luis [facility] CPT-39541 Level 3 Est. Patient 13:25:53 PAEDIATRIC SURGEON Tavo toure MD [facility] CPT-31905 Level 3 Est. Patient 18:17:28 CDT Mitch luis [facility] CPT-25068 Level 3 Est. Patient 15:22:57 CDT Mitch Arnol luis DO [facility] CPT-23738 Level 3 Est. Patient 18:21:50 CDT Mitch W L janelle [facility] CPT-08730 Level 3 Est. Patient 18:20:38 CDT Mitch Arnol luis [facility] CPT-46492 Level 3 Est. Patient 15:37:55 CDT Mitch Arnol luis [facility] CPT-35724 Level 2 Est. Patient 15:54:44 CDT Carmine benton MD [facility] CPT-97172 Level 3 Est. Patient 21:46:01 PAEDIATRIC SURGEON Mitch luis [facility] CPT-16226 Level 3 Est. Patient 22:15:50 CDT Mitch Arnol luis [facility] CPT-95853 Level 3 Est. Patient 10:48:15 CDT Mitch luis [facility] CPT-05404 Level 3 Est. Patient 23:20:57 CDT Tavo toure MD [facility] CPT-83040 Level 3 Est. Patient 16:26:13 CDT Mitch Castellano janelle [facility] Procedures Code Procedure Name Date Entry Date Standard Desc ription CPT-34999 PT/INR - LAB USE ONLY 13:32:49 PAEDIATRIC SURGEON CPT-59112 Venipuncture Draw Fee 13:32:49 PAEDIATRIC SURGEON CPT-88191 PT/INR - LAB USE ONLY 10:34:49 PAEDIATRIC SURGEON CPT-15981 Venipuncture Draw Fee 10:34:48 PAEDIATRIC SURGEON CPT-93988 PT/INR - LAB USE ONLY 09:22:03 PAEDIATRIC SURGEON CPT-29777 Venipuncture Draw Fee 09:22:02 PAEDIATRIC SURGEON CPT-85336 Hemoccult IFOBT - LAB USE ONLY 10:27:22 CDT CPT-73992 Venipuncture Draw Fee 08:27:08 CDT CPT-60408 Liver Profile - LAB USE ONLY 08:27:07 CDT 2 CPT-31053 Microalbumin - LAB USE ONLY 08:27:07 CDT 20 25/05/09 CPT-00260 PT/INR - LAB USE ONLY 08:27:07 CDT CPT-24235 HGBA1C - LAB USE ONLY 08:27:07 CDT CPT-77397 CBC - LAB USE ONLY 08:27:07 CDT CPT-27391 Venipuncture Draw Fee 11:09:14 CDT CPT-39277 Venipuncture Draw Fee 08:32:21 PAEDIATRIC SURGEON CPT-83601 Venipuncture Draw Fee 09:38:56 PAEDIATRIC SURGEON CPT-45329 No Charge Offi Visit 21:36:07 CDT 1 CPT-20360 Venipuncture Draw Fee 10:13:28 PAEDIATRIC SURGEON CPT-26415 Venipuncture Draw Fee 08:31:11 CDT CPT-17035 Aspir/Inject Med Joint 18:17:28 CDT CPT-85474 Venipuncture Draw Fee 10:13:30 CDT CPT-23161 Venipuncture Draw Fee 08:31:43 PAEDIATRIC SURGEON CPT-JTINJ Joint Injection 18:34:50 CDT CPT-64795 Knee 3V 12:25:09 CDT CPT-58540 Venipuncture Draw Fee 12:15:57 CDT CPT-060 Medical Surveillance Exam 21:31:43 CDT 2011 CPT-85581 Venipuncture Draw Fee 08:32:05 PAEDIATRIC SURGEON CPT-OV Office Visit 18:19:06 CDT
--- OUTSIDE RECORDS SUMMARY | 2020-01-18 12:30 | XMS REPORT | Clinical Summary ---
Author Author Admin, Mitch Leon Organization [facility] Address Unknown Phone Unavailable Allergies, Adverse Reactions, [...] [place] or graft EDEMA 782.3 Active Mitch Urbina [...] Generic Name NDC Status Provider Patient Instruction MECLIZINE HCL 25 MG TAB 1 po tid 3 days, then 1/2 tab tid 3 days MECLIZINE HCL 02078637334 No Longer Active Corey SEGURA Active ALLOPURINOL 300 MG TABS Take 1 tablet by mouth daily 2 ALLOPURINOL 11524462855 No Longer Active Corey SEGURA Activ e CLONIDINE HCL 0.1 MG TABS 1 po bid 7 days, then 1/2 tab po b id 7 days CLONIDINE HCL 59127062260 No Longer Active Corey SEGURA Active COUMADIN 5 MG TABS 1 tab PO daily WARFARIN SODIUM 59810474507 Active Mitch Urbina DO Active COUMADIN 4 MG TABS 1 tablet daily WARFARIN SODI UM 50829892969 No Longer Active Corey SEGURA Active POLYTRIM 52433-6.1 UNIT/ML-% SOLN 1 drop in affected e ye every 3 hours while awake x 7 days POLYMYXIN B-TRIMETHOPRIM 87913831374 N o Longer Active Corey SEGURA Active LOSARTAN POTASSIUM-HCTZ 100-12.5 MG TABS 1 by mouth da rocky for high blood pressure LOSARTAN POTASSIUM-HCTZ 42187249745 Active Stephy Urbina DO Active LISINOPRIL-HYDROCHLOROTHIAZIDE 20-12.5 MG TABS 1 tab by mouth da rocky LISINOPRIL-HYDROCHLOROTHIAZIDE 37201220526 No Longer Active Mitch luis DO Active LISINOPRIL 20 MG TABS 1 tab po at HS LISINOPRIL 37175256097 No Longer Active Mitch Urbina DO Active COUMADIN 5 MG TABS 1 by mouth every other day WARFARIN SODIUM 99115147320 No Longer Active Mitch Urbina DO Active COUMADIN 6 MG TABS 1 by mouth every other day WARFARIN SODIUM 39953056668 No Longer Active Mitch Urbina DO Active COLCRYS 0.6 MG TABS 1 tab qid prn gout COLCHICINE 21340291127 Active Mitch Urbina DO Active SIMVASTATIN 40 MG TABS 1 tab daily at bedtime S IMVASTATIN 21000010881 Active Mitch Urbina DO Active SIMVASTATIN 20 MG TABS 1 tab daily at bedtime S IMVASTATIN 87198856828 No Longer Active Mitch Urbina DO Active LOVENOX 100 MG/ML SC SOLN One injection twice a day 09/15/15 ENOXAPARIN SODIUM 94107751521 No Longer Active Carmine Navarrete ctive JANUVIA 50 MG TABS Take one by mouth daily DIEGO GLIPTIN PHOSPHATE 75118370709 Active Mitch Urbina DO Active JANUVIA 100 MG TABS 1/2 by mouth every day DIEGO GLIPTIN PHOSPHATE 72675565427 No Longer Active Bijal Philipp RN Active METFORMIN HCL 500 MG TABS 2 by mouth twice daily METFORMIN HCL 98382253381 Active Mitch Urbina DO Active GLIMEPIRIDE 4 MG TABS 1 tab po bid GLIMEPIRIDE 793598 83093 Active Mitch Urbina DO Active COLCRYS 0.6 MG TABS 1 po q 6 hours prn gout pain 03/02 COLCHICINE 23333448712 No Longer Active Camila Sunwest Active LISINOPRIL 5 MG TABS 1 by mouth every day LISIN OPRIL 90755923117 No Longer Active Nguyenmolly Perez Active KLOR-CON 20 MEQ PACK Take one by mouth daily 8 POTASSIUM CHLORIDE 44653079949 No Longer Active Nguyenmolly Perez Active FUROSEMIDE 40 MG TABS 1 by mouth daily FUROSEMI DE 14472190330 No Longer Active Nguyen Perez Active PROVIGIL 200 MG TABS 1/2 tab po q day MODAFINIL 24581 809056 Active Mitch Urbina DO Active PROVIGIL 100 MG TABS Take one by mouth daily MO DAFINIL 88185603106 No Longer Active Mitch Urbina DO Active BACTRIM DS 800-160 MG TAB 1 tab by mouth twice daily 2 TRIMETHOPRIM-SULFAMETHOXAZOLE 45586392765 No Longer Active Renan Hays MD Active FAMOTIDINE 20 MG TABS by mouth twice a day FAMOTI DINE 96644212085 Active Mitch Urbina DO Active ADULT ASPIRIN LOW STRENGTH 81 MG TBDP 1 by mouth every daily ASPIRIN 45552886358 Active Mitch Urbina DO Active METOPROLOL TARTRATE 50 MG TABS 1 by mouth twice daily METOPROLOL TARTRATE 74308293853 Active Mitch Urbina DO Active BACTRIM DS 800-160 MG TAB 1 tab by mouth twice daily 2 BACTRIM DS 800-160 MG TAB TRIMETHOPRIM-SULFAMETHOXAZOLE Inac tive PROVIGIL 100 MG TABS Take one by mouth daily 4 PROVIGIL 100 MG TABS 894574 MODAFINIL Inactive FUROSEMIDE 40 MG TABS 1 by mouth daily FU ROSEMIDE 40 MG TABS 463741 FUROSEMIDE Inactive KLOR-CON 20 MEQ PACK Take one by mouth daily 8 KLOR-CON 20 MEQ PACK 959698 POTASSIUM CHLORIDE Inactive LISINOPRIL 5 MG TABS 1 by mouth every day LISINOPRIL 5 MG TABS 966160 LISINOPRIL Inactive COLCRYS 0.6 MG TABS 1 po q 6 hours prn gout pain 03/02 COLCRYS 0.6 MG TABS COLCHICINE Inactive JANUVIA 100 MG TABS 1/2 by mouth every day JANUVI A 100 MG TABS SITAGLIPTIN PHOSPHATE Inactive SIMVASTATIN 20 MG TABS 1 tab daily at bedtime SIMVASTATIN 20 MG TABS 239951 SIMVASTATIN Inactive COUMADIN 6 MG TABS 1 by mouth every other day COUMADIN 6 MG TABS 471365 WARFARIN SODIUM Inactive COUMADIN 5 MG TABS 1 by mouth every other day COUMADIN 5 MG TABS 150881 WARFARIN SODIUM Inactive LISINOPRIL 20 MG TABS 1 tab po at HS KOKI NOPRIL 20 MG TABS 989511 LISINOPRIL Inactive LISINOPRIL-HYDROCHLOROTHIAZIDE 20-12.5 MG TABS 1 tab by mouth da rocky LISINOPRIL-HYDROCHLOROTHIAZIDE 20-12.5 MG TABS 604697 LISINOPRIL-HYDROCHLOROTHIAZIDE Inactive POLYTRIM 43231-7.1 UNIT/ML-% SOLN 1 drop in affected e ye every 3 hours while awake x 7 days POLYTRIM 97348-1.1 UNIT/ML-% SOLN 09447 7 POLYMYXIN B-TRIMETHOPRIM Inactive COUMADIN 4 MG TABS 1 tablet daily COUMADIN 4 MG TABS 824854 WARFARIN SODIUM Inactive CLONIDINE HCL 0.1 MG TABS 1 po bid 7 days, then 1/2 tab po b id 7 days CLONIDINE HCL 0.1 MG TABS 433379 CLONIDINE HCL I nactive ALLOPURINOL 300 MG TABS Take 1 tablet by mouth daily 2 ALLOPURINOL 300 MG TABS 644225 ALLOPURINOL Inactive MECLIZINE HCL 25 MG TAB 1 po tid 3 days, then 1/2 tab tid 3 days MECLIZINE HCL 25 MG TAB 648699 MECLIZINE HCL Inactive LOVENOX 100 MG/ML SC SOLN One injection twice a day 09/15/15 LOVENOX 100 MG/ML SC SOLN 525519 ENOXAPARIN SODIUM Inactive Vital Signs Date Name Value Unit Range Description blood pressure, diastolic 70 mm[Hg] BP mane blood pressure, systolic 169 mm[Hg] BP sys height E&M 70 [in_us] Bdy height pulse rate E&M 72 /min Heart rate temperature E&M 97.7 [degF] Body temp erature weight E&M 236.13 [lb_av] Weight Measure d blood pressure, diastolic 82 mm[Hg] BP mane blood pressure, systolic 171 mm[Hg] BP sys height E&M 70 [in_us] Bdy height pulse rate E&M 77 /min Heart rate temperature E&M 97.9 [degF] Body temp erature weight E&M 234.44 [lb_av] Weight Measure d Diagnostic Results Date Name Value Unit Range Description Append: Anticoagulation Management - Coa gulation international normalized ratio (INR) international normalized ratio (INR) coagulation managed by Mitch Urbina DO international normalized ratio (INR) coagulation managed by Mitch Urbina DO Lab Report: CBC, Comp. Metabolic Panel, HGBA1C, MICROALBUMIN, Uric Acid - Chemistry sodium, serum 136 mmol/L 644-412 6378/07/25 potassium, serum 4.6 mmol/L 3.5-5.2 chloride, serum [...] Panel - Chemistry sodium, serum 137 mmol/L 790-115 4322/11/14 potassium, serum 4.4 mmol/L 3.5-5.2 chloride, serum [...] 8.0 % 4.3-6.0 cholesterol, serum 130 mg/dL 199-366 9478/11/14 triglyceride, serum, fasting 288 mg/dL 30-200 HDL cholesterol, serum 33 mg/dL 32-96 LDL cholesterol, serum 39 mg/dL 0-130 Lab Report: Prothrombin Time - Coagulati on prothrombin time (patient) 19.9 SECS s 11.1-13.4 international normalized ratio (INR) 2.6 1.0-3.5 prothrombin time (patient) 18.4 SECS s 11.1-13.4 international normalized ratio (INR) 2.2 1.0-3.5 prothrombin time (patient) 16.8 SECS s 11.1-13.4 international normalized ratio (INR) 1.9 1.0-3.5 prothrombin time (patient) 17.8 SECS s 11.4-12.8 international normalized ratio (INR) 2.1 1.0-3.5 prothrombin time (patient) 18.4 SECS s 11.1-13.4 international normalized ratio (INR) 2.2 1.0-3.5 prothrombin time (patient) 16.0 SECS s 11.1-13.4 international normalized ratio (INR) 1.7 1.0-3.5 Encounters Code Encounter Date Provider Facility CPT-00239 Level 3 Est. Patient 13:53:19 LOAN BROKER Mitch luis [facility] CPT-48065 Level 3 Est. Patient 19:19:37 LOAN BROKER Mitch luis [facility] CPT-31635 Level 3 Est. Patient 13:25:53 LOAN BROKER Tavo toure MD [facility] CPT-30697 Level 3 Est. Patient 18:17:28 CDT Mitch luis [facility] CPT-09912 Level 3 Est. Patient 15:22:57 CDT Mitch luis [facility] CPT-64451 Level 3 Est. Patient 18:21:50 CDT Mitch luis [facility] CPT-70881 Level 3 Est. Patient 18:20:38 CDT Mitch luis [facility] CPT-05073 Level 3 Est. Patient 15:37:55 CDT Mitch luis [facility] CPT-05020 Level 2 Est. Patient 15:54:44 CDT Carmine benton MD [facility]-69196 Level 3 Est. Patient 21:46:01 LOAN BROKER Mitch luis [facility] CPT-43107 Level 3 Est. Patient 22:15:50 CDT Mitch luis [facility] CPT-91977 Level 3 Est. Patient 10:48:15 CDT Mitch luis DO [facility] CPT-14967 Level 3 Est. Patient 23:20:57 CDT Tavo toure MD [facility] CPT-79057 Level 3 Est. Patient 16:26:13 CDT Mitch luis [facility] Procedures Code Procedure Name Date Entry Date Standard Desc ription CPT-32169 Venipuncture Draw Fee 10:13:28 LOAN BROKER CPT-21076 Venipuncture Draw Fee 08:31:11 CDT CPT-51967 Aspir/Inject Med Joint 18:17:28 CDT CPT-69081 Venipuncture Draw Fee 10:13:30 CDT CPT-52391 Venipuncture Draw Fee 08:31:43 LOAN BROKER CPT-JTINJ Joint Injection 18:34:50 CDT CPT-70515 Knee 3V 12:25:09 CDT CPT-79455 Venipuncture Draw Fee 12:15:57 CDT CPT-060 Medical Surveillance Exam 21:31:43 CDT 2011 CPT-42993 Venipuncture Draw Fee 08:32:05 LOAN BROKER CPT-OV Office Visit 18:19:06 CDT
--- OUTSIDE RECORDS SUMMARY | 2020-01-18 12:31 | XMS REPORT | Clinical Summary ---
Author Author Admin, Mitch Leon Organization [facility] Address Unknown Phone Unavailable Allergies, Adverse [...] Coronary atherosclerosis of unspecified type of vessel, [place] or graft EDEMA 782.3 Resolved Mitch [...] Anemia, unspecified Malaise and fatigue 780.79 Resolved Mithc Urbina D O Other malaise and fatigue [...] Mitch Arnol Carlitos VELASQUEZ Cellulitis ICD-682.9 Inactive iMtch Urbina 10/23 CELLULITIS, GROIN, LEFT ICD-682.2 Inactive Zoya Urbina DO Medication List Medication Instructions Start Date Stop Date Generic Name NDC Status Provider Patient Instruction GLIMEPIRIDE 2 MG ORAL TABS 1 po BID GLIMEPIRIDE 82146 142965 Active Ana Wallace Active KEFLEX 500 MG CAP 1 po qid CEPHALEXIN 201083561 20 No Longer Active Mitch Urbina DO Active LOSARTAN POTASSIUM 100 MG TABS 1 pill by mouth daily, for bl ood pressure LOSARTAN POTASSIUM 39418416136 Active Ana Wallace Active AMLODIPINE BESYLATE 5 MG TABS 1 tablet by mouth daily AMLODIPINE BESYLATE 13033553462 No Longer Active Joe Williamson APRN Active MITIGARE 0.6 MG ORAL CAPS 2 capsules at onset of gout pain, then take one capsule at 1 hour if symptoms persist. COLCHICINE 59 657707787 Active Mitch Urbina DO Active COUMADIN 1 MG TAB 2 tabs orally daily with the 5mg tab to equal 7mg daily WARFARIN SODIUM 22844060787 Active Mitch Urbina DO Active COLCRYS 0.6 MG TABS 1 tab qid prn gout COLCHICINE 56167629794 Active Norma Cazares Active INVOKANA 100 MG ORAL TABS 1 tablet orally daily CANAGLIFLOZIN 93550076940 Active Mitch Urbina DO Active MINOXIDIL 2.5 MG TABS 1 tablet daily for high blood pressure 10/23 MINOXIDIL 68542607771 Active Mitch Urbina DO Active MECLIZINE HCL 25 MG TAB 1 po tid 3 days, then 1/2 tab tid 3 days MECLIZINE HCL 37422725443 No Longer Active Corey SEGURA Active ALLOPURINOL 300 MG TABS Take 1 tablet by mouth daily 2 ALLOPURINOL 45496063300 No Longer Active Corey SEGURA Activ e CLONIDINE HCL 0.1 MG TABS 1 po bid 7 days, then 1/2 tab po b id 7 days CLONIDINE HCL 21240194976 No Longer Active Corey SEGURA Active COUMADIN 5 MG TABS 1 tab PO daily WARFARIN SODIUM 45736026506 Active Mitch Urbina DO Active COUMADIN 4 MG TABS 1 tablet daily WARFARIN SODI UM 68170247574 No Longer Active Corey SEGURA Active POLYTRIM 48574-7.1 UNIT/ML-% SOLN 1 drop in affected e ye every 3 hours while awake x 7 days POLYMYXIN B-TRIMETHOPRIM 69204309303 N o Longer Active Corey SEGURA Active LOSARTAN POTASSIUM-HCTZ 100-12.5 MG TABS 1 by mouth [place] for high blood pressure LOSARTAN POTASSIUM-HCTZ 69717942092 No Longer A ctive Mitch Urbina DO Active LISINOPRIL-HYDROCHLOROTHIAZIDE 20-12.5 MG TABS 1 tab by mouth da [place] LISINOPRIL-HYDROCHLOROTHIAZIDE 58554735816 No Longer Active Mitch luis DO Active LISINOPRIL 20 MG TABS 1 tab po at HS LISINOPRIL 04306863508 No Longer Active Mitch Urbina DO Active COUMADIN 5 MG TABS 1 by mouth every other day WARFARIN SODIUM 65144292742 No Longer Active Mitch Urbina DO Active COUMADIN 6 MG TABS 1 by mouth every other day WARFARIN SODIUM 06283974193 No Longer Active Mitch Urbina DO Active SIMVASTATIN 40 MG TABS 1 tab daily at bedtime S IMVASTATIN 04395765309 Active Mitch Urbina DO Active SIMVASTATIN 20 MG TABS 1 tab daily at bedtime S IMVASTATIN 21057802681 No Longer Active Mitch Urbina DO Active LOVENOX 100 MG/ML SC SOLN One injection twice a day 09/15/15 ENOXAPARIN SODIUM 99571228581 No Longer Active Carmine Yusuf MD A ctive JANUVIA 50 MG TABS Take one by mouth daily DIEGO GLIPTIN PHOSPHATE 25492650939 Active Mitch Urbina DO Active JANUVIA 100 MG TABS 1/2 by mouth every day DIEGO GLIPTIN PHOSPHATE 25093564760 No Longer Active Bijal Segal RN Active METFORMIN HCL 500 MG TABS 2 by mouth twice daily METFORMIN HCL 45557834622 Active Mitch Urbina DO Active COLCRYS 0.6 MG TABS 1 po q 6 hours prn gout pain 03/02 COLCHICINE 87555329812 No Longer Active Camila Reese Active LISINOPRIL 5 MG TABS 1 by mouth every day LISIN OPRIL 33491568404 No Longer Active Nguyen Perez Active KLOR-CON 20 MEQ PACK Take one by mouth daily 8 POTASSIUM CHLORIDE 95053194406 No Longer Active Nguyen Perez Active FUROSEMIDE 40 MG TABS 1 by mouth daily FUROSEMI DE 70028815199 No Longer Active Nguyen Perez Active PROVIGIL 200 MG TABS 1/2 tab po q day MODAFINIL 52518 789003 Active Mitch Urbina DO Active PROVIGIL 100 MG TABS Take one by mouth daily MO DAFINIL 55188459577 No Longer Active Mitch Urbina DO Active BACTRIM DS 800-160 MG TAB 1 tab by mouth twice daily 2 TRIMETHOPRIM-SULFAMETHOXAZOLE 28944429981 No Longer Active Renan Hays MD Active FAMOTIDINE 20 MG TABS by mouth twice a day FAMOTI DINE 17943012073 Active Mitch Urbina DO Active ADULT ASPIRIN LOW STRENGTH 81 MG TBDP 1 by mouth every daily ASPIRIN 45964619980 Active Mitch Urbina DO Active METOPROLOL TARTRATE 50 MG TABS 1 by mouth twice daily METOPROLOL TARTRATE 91670448999 Active Mitch Urbina DO Active BACTRIM DS 800-160 MG TAB 1 tab by mouth twice daily 2 BACTRIM DS 800-160 MG TAB 724530 TRIMETHOPRIM-SULFAMETHOXAZOLE Inac tive PROVIGIL 100 MG TABS Take one by mouth daily 4 PROVIGIL 100 MG TABS 110345 MODAFINIL Inactive FUROSEMIDE 40 MG TABS 1 by mouth daily FU ROSEMIDE 40 MG TABS 943110 FUROSEMIDE Inactive KLOR-CON 20 MEQ PACK Take one by mouth daily 8 KLOR-CON 20 MEQ PACK 6808528 POTASSIUM CHLORIDE Inactive LISINOPRIL 5 MG TABS 1 by mouth every day LISINOPRIL 5 MG TABS 324814 LISINOPRIL Inactive COLCRYS 0.6 MG TABS 1 po q 6 hours prn gout pain 03/02 COLCRYS 0.6 MG TABS 792754 COLCHICINE Inactive JANUVIA 100 MG TABS 1/2 by mouth every day JANUVI A 100 MG TABS SITAGLIPTIN PHOSPHATE Inactive SIMVASTATIN 20 MG TABS 1 tab daily at bedtime SIMVASTATIN 20 MG TABS 970497 SIMVASTATIN Inactive COUMADIN 6 MG TABS 1 by mouth every other day COUMADIN 6 MG TABS 782716 WARFARIN SODIUM Inactive COUMADIN 5 MG TABS 1 by mouth every other day COUMADIN 5 MG TABS 446503 WARFARIN SODIUM Inactive LISINOPRIL 20 MG TABS 1 tab po at HS KOKI NOPRIL 20 MG TABS 046488 LISINOPRIL Inactive LISINOPRIL-HYDROCHLOROTHIAZIDE 20-12.5 MG TABS 1 tab by mouth da rocky LISINOPRIL-HYDROCHLOROTHIAZIDE 20-12.5 MG TABS 853158 LISINOPRIL-HYDROCHLOROTHIAZIDE Inactive POLYTRIM 73706-2.1 UNIT/ML-% SOLN 1 drop in affected e ye every 3 hours while awake x 7 days POLYTRIM 15282-3.1 UNIT/ML-% SOLN 29737 7 POLYMYXIN B-TRIMETHOPRIM Inactive COUMADIN 4 MG TABS 1 tablet daily COUMADIN 4 MG TABS 213671 WARFARIN SODIUM Inactive CLONIDINE HCL 0.1 MG TABS 1 po bid 7 days, then 1/2 tab po b id 7 days CLONIDINE HCL 0.1 MG TABS 175773 CLONIDINE HCL I nactive ALLOPURINOL 300 MG TABS Take 1 tablet by mouth daily 2 ALLOPURINOL 300 MG TABS 684938 ALLOPURINOL Inactive MECLIZINE HCL 25 MG TAB 1 po tid 3 days, then 1/2 tab tid 3 days MECLIZINE HCL 25 MG TAB 216373 MECLIZINE HCL Inactive AMLODIPINE BESYLATE 5 MG TABS 1 tablet by mouth daily AMLODIPINE BESYLATE 5 MG TABS 847107 AMLODIPINE BESYLATE Inactive KEFLEX 500 MG CAP 1 po qid KEFLEX 500 MG CAP 30 9114 CEPHALEXIN Inactive LOVENOX 100 MG/ML SC SOLN One injection twice a day 09/15/15 LOVENOX 100 MG/ML SC SOLN 674658 ENOXAPARIN SODIUM Inactive Vital Signs Date Name [...] - Chem istry sodium, serum 139 mmol/L 391-422 2762/07/17 potassium, serum 4.2 mmol/L 3.5-5.2 chloride, serum 102 mmol/L 98-107 carbon dioxide, venous blood 28.9 mmol/L 21.0-32 .0 blood glucose 211 mg/dL 65-110 calcium, serum 10.6 mg/dL 8.5-10.1 urea nitrogen, blood 29 mg/dL 7-18 creatinine, serum 1.24 mg/dL 0.60-1.30 sodium, serum 141 mmol/L 026-457 5683/08/07 potassium, serum 4.5 mmol/L 3.5-5.2 chloride, serum [...] sodium, serum 144 mmol/L 136-145 Lab Report: Prothrombin Time - Coagulati on international normalized ratio (INR) 2.4 1.0-3.5 prothrombin time (patient) 19.9 SECS s 11.1-13.4 prothrombin time (patient) 17.8 SECS s 11.1-13.4 international normalized ratio (INR) 2.0 1.0-3.5 prothrombin time (patient) 21.3 SECS s 11.1-13.4 international normalized ratio (INR) 2.7 1.0-3.5 Encounters Code Encounter Date Provider Facility CPT-09306 Level 3 Est. Patient 18:25:53 CDT Mitch luis [facility] CPT-65841 Level 3 Est. Patient 19:43:34 CDT Mitch luis [facility] CPT-05671 Level 4 Est. Patient 09:30:18 CDT Mitch luis [facility] CPT-77841 Level 3 Est. Patient 15:10:14 CDT Joe Jason courtangela [facility] CPT-41637 Level 3 Est. Patient 15:03:46 CDT Joe Jason yunangela [facility] CPT-68742 Level 3 Est. Patient 14:21:06 CDT Mithc luis [facility] CPT-48800 Level 3 Est. Patient 14:52:06 CDT Joe Jason kamara [facility] CPT-48473 Level 3 Est. Patient 09:34:30 REFERRAL AND INFORMATION AIDE Mitch luis [facility] CPT-36835 Level 3 Est. Patient 09:37:15 CDT Mitch luis [facility] CPT-74203 Level 3 Est. Patient 17:01:00 REFERRAL AND INFORMATION AIDE Mitch luis [facility] CPT-07364 Level 3 Est. Patient 13:53:19 REFERRAL AND INFORMATION AIDE Mitch luis [facility] CPT-98810 Level 3 Est. Patient 19:19:37 REFERRAL AND INFORMATION AIDE Mitch luis [facility] CPT-79909 Level 3 Est. Patient 13:25:53 REFERRAL AND INFORMATION AIDE Tavo toure MD [facility] CPT-63936 Level 3 Est. Patient 18:17:28 CDT Mitch luis [facility] CPT-75123 Level 3 Est. Patient 15:22:57 CDT Mitch luis [facility] CPT-71100 Level 3 Est. Patient 18:21:50 CDT Mitch W L janelle [facility] CPT-69887 Level 3 Est. Patient 18:20:38 CDT Mitch W L janelle [facility] CPT-67745 Level 3 Est. Patient 15:37:55 CDT Mitch W L janelle [facility] CPT-72551 Level 2 Est. Patient 15:54:44 CDT Carmine benton MD [facility] CPT-37474 Level 3 Est. Patient 21:46:01 REFERRAL AND INFORMATION AIDE Mitch luis [facility] CPT-63311 Level 3 Est. Patient 22:15:50 CDT Mitch luis [facility] CPT-14969 Level 3 Est. Patient 10:48:15 CDT Mitch luis [facility] CPT-88772 Level 3 Est. Patient 23:20:57 CDT Tavo toure MD [facility] CPT-77861 Level 3 Est. Patient 16:26:13 CDT Mitch Ambrose Nona luis [facility] Procedures Code Procedure Name Date Entry Date Standard Desc ription CPT-44536 Venipuncture Draw Fee 09:26:17 CDT CPT-06694 PT/INR - LAB USE ONLY 13:32:49 REFERRAL AND INFORMATION AIDE CPT-27532 Venipuncture Draw Fee 13:32:49 REFERRAL AND INFORMATION AIDE CPT-43279 PT/INR - LAB USE ONLY 10:34:49 REFERRAL AND INFORMATION AIDE CPT-05284 Venipuncture Draw Fee 10:34:48 REFERRAL AND INFORMATION AIDE CPT-40392 PT/INR - LAB USE ONLY 09:22:03 REFERRAL AND INFORMATION AIDE CPT-63638 Venipuncture Draw Fee 09:22:02 REFERRAL AND INFORMATION AIDE CPT-91684 Hemoccult IFOBT - LAB USE ONLY 10:27:22 CDT CPT-29982 Venipuncture Draw Fee 08:27:08 CDT CPT-00747 Liver Profile - LAB USE ONLY 08:27:07 CDT 2 CPT-12380 Microalbumin - LAB USE ONLY 08:27:07 CDT 20 25/05/09 CPT-14200 PT/INR - LAB USE ONLY 08:27:07 CDT CPT-71265 HGBA1C - LAB USE ONLY 08:27:07 CDT CPT-40775 CBC - LAB USE ONLY 08:27:07 CDT CPT-02618 Venipuncture Draw Fee 11:09:14 CDT CPT-44516 Venipuncture Draw Fee 08:32:21 REFERRAL AND INFORMATION AIDE CPT-36760 Venipuncture Draw Fee 09:38:56 REFERRAL AND INFORMATION AIDE CPT-53323 No Charge Offi Visit 21:36:07 CDT 1 CPT-93990 Venipuncture Draw Fee 10:13:28 REFERRAL AND INFORMATION AIDE CPT-60876 Venipuncture Draw Fee 08:31:11 CDT CPT-03413 Aspir/Inject Med Joint 18:17:28 CDT CPT-14545 Venipuncture Draw Fee 10:13:30 CDT CPT-40658 Venipuncture Draw Fee 08:31:43 REFERRAL AND INFORMATION AIDE CPT-JTINJ Joint Injection 18:34:50 CDT CPT-17045 Knee 3V 12:25:09 CDT CPT-30222 Venipuncture Draw Fee 12:15:57 CDT CPT-060 Medical Surveillance Exam 21:31:43 CDT 2011 CPT-65367 Venipuncture Draw Fee 08:32:05 REFERRAL AND INFORMATION AIDE CPT-OV Office Visit 18:19:06 CDT
--- OUTSIDE RECORDS SUMMARY | 2020-01-18 12:31 | XMS REPORT | Clinical Summary ---
Author Author Admin, Mitch Leon Organization [facility] Address Unknown Phone Unavailable Allergies, [...] Coronary atherosclerosis of unspecified type of vessel, stebbins or graft EDEMA 782.3 Active Mitch Urbina [...] 1/2 tab tid 3 days MECLIZINE HCL 76248459682 No Longer Active Corey SEGURA Active ALLOPURINOL 300 MG TABS Take 1 tablet by mouth daily 2 ALLOPURINOL 50053917086 No Longer Active Corey SEGURA Activ e CLONIDINE HCL 0.1 MG TABS 1 po bid 7 days, then 1/2 tab po b id 7 days CLONIDINE HCL 63043472521 No Longer Active Corey SEGURA Active COUMADIN 5 MG TABS 1 tab PO daily WARFARIN SODIUM 35483635454 Active Mitch Urbina DO Active COUMADIN 4 MG TABS 1 tablet daily WARFARIN SODI UM 07861823436 No Longer Active Corey SEGURA Active POLYTRIM 92112-7.1 UNIT/ML-% SOLN 1 drop in affected e ye every 3 hours while awake x 7 days POLYMYXIN B-TRIMETHOPRIM 49898294155 N o Longer Active Corey SEGURA Active LOSARTAN POTASSIUM-HCTZ 100-12.5 MG TABS 1 by mouth da rocky for high blood pressure LOSARTAN POTASSIUM-HCTZ 93426180981 Active Stephy Urbina DO Active LISINOPRIL-HYDROCHLOROTHIAZIDE 20-12.5 MG TABS 1 tab by mouth da rocky LISINOPRIL-HYDROCHLOROTHIAZIDE 81438216655 No Longer Active Mitch luis DO Active LISINOPRIL 20 MG TABS 1 tab po at HS LISINOPRIL 87211129108 No Longer Active Mitch Urbina DO Active COUMADIN 5 MG TABS 1 by mouth every other day WARFARIN SODIUM 17370223351 No Longer Active Mitch Urbina DO Active COUMADIN 6 MG TABS 1 by mouth every other day WARFARIN SODIUM 74624555931 No Longer Active Mitch Urbina DO Active COLCRYS 0.6 MG TABS 1 tab qid prn gout COLCHICINE 43108990154 Active Mitch Urbina DO Active SIMVASTATIN 40 MG TABS 1 tab daily at bedtime S IMVASTATIN 86513843450 Active Micth Urbina DO Active SIMVASTATIN 20 MG TABS 1 tab daily at bedtime S IMVASTATIN 56167031802 No Longer Active Mitch Urbina DO Active LOVENOX 100 MG/ML SC SOLN One injection twice a day 09/15/15 ENOXAPARIN SODIUM 42076351405 No Longer Active Carmine Navarrete ctive JANUVIA 50 MG TABS Take one by mouth daily DIEGO GLIPTIN PHOSPHATE 75395553219 Active Mitch Urbina DO Active JANUVIA 100 MG TABS 1/2 by mouth every day DIEGO GLIPTIN PHOSPHATE 68280000694 No Longer Active Bijal Philipp RN Active METFORMIN HCL 500 MG TABS 2 by mouth twice daily METFORMIN HCL 33291098908 Active Mitch Urbina DO Active GLIMEPIRIDE 4 MG TABS 1 tab po bid GLIMEPIRIDE 298954 39953 Active Mitch Urbina DO Active COLCRYS 0.6 MG TABS 1 po q 6 hours prn gout pain 03/02 COLCHICINE 74573139900 No Longer Active Camila Hugh Active LISINOPRIL 5 MG TABS 1 by mouth every day LISIN OPRIL 42786437116 No Longer Active Nguyenmolly Perez Active KLOR-CON 20 MEQ PACK Take one by mouth daily 8 POTASSIUM CHLORIDE 15870113135 No Longer Active Nguyenmolly Perez Active FUROSEMIDE 40 MG TABS 1 by mouth daily FUROSEMI DE 25195176460 No Longer Active Nguyen Perez Active PROVIGIL 200 MG TABS 1/2 tab po q day MODAFINIL 50752 729004 Active Mitch Urbina DO Active PROVIGIL 100 MG TABS Take one by mouth daily MO DAFINIL 34105796461 No Longer Active Mitch Urbina DO Active BACTRIM DS 800-160 MG TAB 1 tab by mouth twice daily 2 TRIMETHOPRIM-SULFAMETHOXAZOLE 77264465306 No Longer Active Renan Hays MD Active FAMOTIDINE 20 MG TABS by mouth twice a day FAMOTI DINE 52685900023 Active Mitch Urbina DO Active ADULT ASPIRIN LOW STRENGTH 81 MG TBDP 1 by mouth every daily ASPIRIN 59514059522 Active Mitch Urbina DO Active METOPROLOL TARTRATE 50 MG TABS 1 by mouth twice daily METOPROLOL TARTRATE 36881088332 Active Mitch Urbina DO Active BACTRIM DS 800-160 MG TAB 1 tab by mouth twice daily 2 BACTRIM DS 800-160 MG TAB TRIMETHOPRIM-SULFAMETHOXAZOLE Inac tive PROVIGIL 100 MG TABS Take one by mouth daily 4 PROVIGIL 100 MG TABS 720324 MODAFINIL Inactive FUROSEMIDE 40 MG TABS 1 by mouth daily FU ROSEMIDE 40 MG TABS 963326 FUROSEMIDE Inactive KLOR-CON 20 MEQ PACK Take one by mouth daily 8 KLOR-CON 20 MEQ PACK 508595 POTASSIUM CHLORIDE Inactive LISINOPRIL 5 MG TABS 1 by mouth every day LISINOPRIL 5 MG TABS 087992 LISINOPRIL Inactive COLCRYS 0.6 MG TABS 1 po q 6 hours prn gout pain 03/02 COLCRYS 0.6 MG TABS COLCHICINE Inactive JANUVIA 100 MG TABS 1/2 by mouth every day JANUVI A 100 MG TABS SITAGLIPTIN PHOSPHATE Inactive SIMVASTATIN 20 MG TABS 1 tab daily at bedtime SIMVASTATIN 20 MG TABS 078675 SIMVASTATIN Inactive COUMADIN 6 MG TABS 1 by mouth every other day COUMADIN 6 MG TABS 344045 WARFARIN SODIUM Inactive COUMADIN 5 MG TABS 1 by mouth every other day COUMADIN 5 MG TABS 267740 WARFARIN SODIUM Inactive LISINOPRIL 20 MG TABS 1 tab po at HS KOKI NOPRIL 20 MG TABS 244819 LISINOPRIL Inactive LISINOPRIL-HYDROCHLOROTHIAZIDE 20-12.5 MG TABS 1 tab by mouth da rocky LISINOPRIL-HYDROCHLOROTHIAZIDE 20-12.5 MG TABS 846766 LISINOPRIL-HYDROCHLOROTHIAZIDE Inactive POLYTRIM 38376-1.1 UNIT/ML-% SOLN 1 drop in affected e ye every 3 hours while awake x 7 days POLYTRIM 46317-2.1 UNIT/ML-% SOLN 55871 7 POLYMYXIN B-TRIMETHOPRIM Inactive COUMADIN 4 MG TABS 1 tablet daily COUMADIN 4 MG TABS 272554 WARFARIN SODIUM Inactive CLONIDINE HCL 0.1 MG TABS 1 po bid 7 days, then 1/2 tab po b id 7 days CLONIDINE HCL 0.1 MG TABS 459962 CLONIDINE HCL I nactive ALLOPURINOL 300 MG TABS Take 1 tablet by mouth daily 2 ALLOPURINOL 300 MG TABS 564264 ALLOPURINOL Inactive MECLIZINE HCL 25 MG TAB 1 po tid 3 days, then 1/2 tab tid 3 days MECLIZINE HCL 25 MG TAB 318866 MECLIZINE HCL Inactive LOVENOX 100 MG/ML SC SOLN One injection twice a day 09/15/15 LOVENOX 100 MG/ML SC SOLN 073517 ENOXAPARIN SODIUM Inactive Vital Signs Date Name [...] - 3141-9 236.13 [lb_av] Weigh t Measured blood pressure, diastolic - 8462-4 82 mm[Hg] BP mane blood pressure, systolic - 8480-6 171 mm[Hg] BP sys height E&M - 8302-2 70 [in_us] Bdy h eight pulse rate E&M - 8867-4 77 /min H eart rate temperature E&M 97.9 [degF] Body temp erature weight E&M - 3141-9 234.44 [lb_av] Weigh t Measured Diagnostic Results Date Name Value Unit Range Description Append: Anticoagulation Management - Coa gulation coagulation managed by Mitch Urbina DO international normalized ratio (INR) coagulation managed by Mitch Urbina DO international normalized ratio (INR) international normalized ratio (INR) Lab Report: CBC, Comp. Metabolic Panel, HGBA1C, MICROALBUMIN, Uric Acid - Chemistry chloride, serum 100 mmol/L 98-107 carbon dioxide, [...] 10.3 mg/dL 2.6-7.2 sodium, serum 136 mmol/L 009-675 5226/07/25 potassium, serum 4.6 mmol/L 3.5-5.2 Lab Report: CBC, Comp. Metabolic Panel, HGBA1C, MICROALBUMIN, Uric Acid - Hematology mean corpuscular hemoglobin concentration, RBC 32.0 G/DL % 31.8-35.4 red blood cell distribution width 18.3 % 11 .6-14.8 platelet count 277 10^3/MM^3 10*3/mm3 995-673 2782/07/25 mean corpuscular hemoglobin, RBC 25.6 pg 27. 0-31.2 leukocyte count, blood 6.6 10^3/MM^3 10*3/mm3 4.6-10.2 erythrocyte (RBC) count 5.02 10^6/MM^3 10*6/mm3 4.69-6.1 3 hemoglobin, blood 12.8 g/dL 13.5-17.5 hematocrit, blood 40.1 % 41.0-53.0 mean corpuscular volume, RBC 80 fL 80-97 Lab Report: CBC, Comp. Metabolic Panel, HGBA1C, MICROALBUMIN, Uric Acid - Lab microalbumin, urine 30 0-19 Lab Report: Comp. Metabolic Panel, HGBA1 C, Lipid Panel - Chemistry aspartate aminotransferase (SGOT), serum 34 U/L 15-37 calcium, serum 10.4 mg/dL 8.5-10.1 bilirubin, serum, total 0.90 mg/dL 0.00-1.00 hemoglobin A1C, blood, as % of total hemoglobin 8.0 % 4.3-6.0 cholesterol, serum 130 mg/dL 729-587 6255/11/14 triglyceride, serum, fasting 288 mg/dL 30-200 HDL cholesterol, serum 33 mg/dL 32-96 LDL cholesterol, serum 39 mg/dL 0-130 potassium, serum 4.4 mmol/L 3.5-5.2 chloride, serum 100 mmol/L 98-107 carbon dioxide, venous blood 33.0 mmol/L 21.0-32 .0 blood glucose 181 mg/dL 65-110 urea nitrogen, blood 28 mg/dL 7-18 sodium, serum 137 mmol/L 867-665 6400/11/14 creatinine, serum 1.30 mg/dL 0.60-1.30 alanine aminotransferase (SGPT), serum 38 U/L 12-78 Lab Report: Prothrombin Time - Coagulati on prothrombin time (patient) 18.4 SECS s 11.1-13.4 international normalized ratio (INR) 2.2 1.0-3.5 prothrombin time (patient) 16.0 SECS s 11.1-13.4 international normalized ratio (INR) 1.7 1.0-3.5 prothrombin time (patient) 19.9 SECS s 11.1-13.4 international normalized ratio (INR) 2.6 1.0-3.5 international normalized ratio (INR) 2.2 1.0-3.5 prothrombin time (patient) 18.4 SECS s 11.1-13.4 international normalized ratio (INR) 2.1 1.0-3.5 prothrombin time (patient) 17.8 SECS s 11.4-12.8 international normalized ratio (INR) 1.9 1.0-3.5 prothrombin time (patient) 16.8 SECS s 11.1-13.4 Encounters Code Encounter Date Provider Facility CPT-39153 Level 3 Est. Patient 13:53:19 LITIGATION LEGAL SECRETARY Mitch luis [facility] CPT-83680 Level 3 Est. Patient 19:19:37 LITIGATION LEGAL SECRETARY Mitch luis [facility] CPT-10253 Level 3 Est. Patient 13:25:53 LITIGATION LEGAL SECRETARY Tavo toure MD [facility] CPT-71708 Level 3 Est. Patient 18:17:28 CDT Mitch luis [facility] CPT-52428 Level 3 Est. Patient 15:22:57 CDT Mitch luis [facility] CPT-34878 Level 3 Est. Patient 18:21:50 CDT Mitch luis [facility] CPT-26925 Level 3 Est. Patient 18:20:38 CDT Mitch luis [facility] CPT-77086 Level 3 Est. Patient 15:37:55 CDT Mitch luis [facility] CPT-56804 Level 2 Est. Patient 15:54:44 CDT Carmine benton MD [facility] CPT-77286 Level 3 Est. Patient 21:46:01 LITIGATION LEGAL SECRETARY Mitch luis [facility] CPT-45139 Level 3 Est. Patient 22:15:50 CDT Mitch luis [facility] CPT-24157 Level 3 Est. Patient 10:48:15 CDT Mitch luis [facility] CPT-21654 Level 3 Est. Patient 23:20:57 CDT Tavo toure MD [facility] CPT-22744 Level 3 Est. Patient 16:26:13 CDT Mitch luis [facility] Procedures Code Procedure Name Date Entry Date Standard Desc ription CPT-42072 Venipuncture Draw Fee 10:13:28 LITIGATION LEGAL SECRETARY CPT-10703 Venipuncture Draw Fee 08:31:11 CDT CPT-58143 Aspir/Inject Med Joint 18:17:28 CDT CPT-40029 Venipuncture Draw Fee 10:13:30 CDT CPT-96604 Venipuncture Draw Fee 08:31:43 LITIGATION LEGAL SECRETARY CPT-JTINJ Joint Injection 18:34:50 CDT CPT-30760 Knee 3V 12:25:09 CDT CPT-95441 Venipuncture Draw Fee 12:15:57 CDT CPT-060 Medical Surveillance Exam 21:31:43 CDT 2011 CPT-52697 Venipuncture Draw Fee 08:32:05 LITIGATION LEGAL SECRETARY CPT-OV Office Visit 18:19:06 CDT
--- OUTSIDE RECORDS SUMMARY | 2020-01-18 12:31 | XMS REPORT | Clinical Summary ---
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 Inactive [...] tab to equal 7mg daily WARFARIN SODIUM 40130439541 Active Mitch Urbina DO Active COLCRYS 0.6 MG TABS 1 tab qid prn gout COLCHICINE 61085775112 Active Kathie Juan RPT,RMA Active INVOKANA 100 MG ORAL TABS 1 tablet orally daily CANAGLIFLOZIN 23196086102 Active Mitch Urbina DO Active MINOXIDIL 2.5 MG TABS 1 tablet daily for high blood pressure 10/23 MINOXIDIL 24427232304 Active Mitch Arnol Urbina DO Active AMLODIPINE BESYLATE 5 MG TABS 1 tablet by mouth daily AMLODIPINE BESYLATE 19601497735 Active Mitch Urbina DO Active MECLIZINE HCL 25 MG TAB 1 po tid 3 days, then 1/2 tab tid 3 days MECLIZINE HCL 06528825352 No Longer Active Corey SEGURA Active ALLOPURINOL 300 MG TABS Take 1 tablet by mouth daily 2 ALLOPURINOL 10466569931 No Longer Active Corey SEGURA Activ e CLONIDINE HCL 0.1 MG TABS 1 po bid 7 days, then 1/2 tab po b id 7 days CLONIDINE HCL 70237774737 No Longer Active Corey SEGURA Active COUMADIN 5 MG TABS 1 tab PO daily WARFARIN SODIUM 49051403711 Active Mitch Urbina DO Active COUMADIN 4 MG TABS 1 tablet daily WARFARIN SODI UM 50938279440 No Longer Active Corey SEGURA Active POLYTRIM 69559-9.1 UNIT/ML-% SOLN 1 drop in affected e ye every 3 hours while awake x 7 days POLYMYXIN B-TRIMETHOPRIM 29949019061 N o Longer Active Corey SEGURA Active LOSARTAN POTASSIUM-HCTZ 100-12.5 MG TABS 1 by mouth da rocky for high blood pressure LOSARTAN POTASSIUM-HCTZ 28844000351 Active Stephy Urbina DO Active LISINOPRIL-HYDROCHLOROTHIAZIDE 20-12.5 MG TABS 1 tab by mouth da rocky LISINOPRIL-HYDROCHLOROTHIAZIDE 35959151287 No Longer Active Mitch luis DO Active LISINOPRIL 20 MG TABS 1 tab po at HS LISINOPRIL 35510706488 No Longer Active Mitch Urbina DO Active COUMADIN 5 MG TABS 1 by mouth every other day WARFARIN SODIUM 47425791147 No Longer Active Mitch Urbina DO Active COUMADIN 6 MG TABS 1 by mouth every other day WARFARIN SODIUM 78560421015 No Longer Active Mitch W [place] DO Active SIMVASTATIN 40 MG TABS 1 tab daily at bedtime S IMVASTATIN 79895759314 Active Mitch Urbina DO Active SIMVASTATIN 20 MG TABS 1 tab daily at bedtime S IMVASTATIN 44559639507 No Longer Active Mitch Urbina DO Active LOVENOX 100 MG/ML SC SOLN One injection twice a day 09/15/15 ENOXAPARIN SODIUM 16465047100 No Longer Active Carmine Navarrete ctive JANUVIA 50 MG TABS Take one by mouth daily DIEGO GLIPTIN PHOSPHATE 13431712820 Active Mitch Urbina DO Active JANUVIA 100 MG TABS 1/2 by mouth every day DIEGO GLIPTIN PHOSPHATE 34275056692 No Longer Active Bijal Segal RN Active METFORMIN HCL 500 MG TABS 2 by mouth twice daily METFORMIN HCL 43314626502 Active Mitch Urbina DO Active GLIMEPIRIDE 4 MG TABS 1 tab po bid GLIMEPIRIDE 750963 15774 Active Mitch Urbina DO Active COLCRYS 0.6 MG TABS 1 po q 6 hours prn gout pain 03/02 COLCHICINE 38734659615 No Longer Active Camila Reese Active LISINOPRIL 5 MG TABS 1 by mouth every day LISIN OPRIL 07031665560 No Longer Active Nguyenmolly Perez Active KLOR-CON 20 MEQ PACK Take one by mouth daily 8 POTASSIUM CHLORIDE 36065020494 No Longer Active Nguyenmolly Perez Active FUROSEMIDE 40 MG TABS 1 by mouth daily FUROSEMI DE 62993009863 No Longer Active Nguyen Ana Active PROVIGIL 200 MG TABS 1/2 tab po q day MODAFINIL 19991 858672 Active Mitch Urbina DO Active PROVIGIL 100 MG TABS Take one by mouth daily MO DAFINIL 42218601738 No Longer Active Mitch Urbina DO Active BACTRIM DS 800-160 MG TAB 1 tab by mouth twice daily 2 TRIMETHOPRIM-SULFAMETHOXAZOLE 91474939074 No Longer Active Renan Hays MD Active FAMOTIDINE 20 MG TABS by mouth twice a day FAMOTI ZULEIKA 38905707447 Active Mitch Arnol Urbina DO Active ADULT ASPIRIN LOW STRENGTH 81 MG TBDP 1 by mouth every daily ASPIRIN 14357538521 Active Mitch Urbina DO Active METOPROLOL TARTRATE 50 MG TABS 1 by mouth twice daily METOPROLOL TARTRATE 91013801310 Active Mitch Arnol Urbina DO Active BACTRIM DS 800-160 MG TAB 1 tab by mouth twice daily 2 BACTRIM DS 800-160 MG TAB 631743 TRIMETHOPRIM-SULFAMETHOXAZOLE Inac tive PROVIGIL 100 MG TABS Take one by mouth daily 4 PROVIGIL 100 MG TABS 764583 MODAFINIL Inactive FUROSEMIDE 40 MG TABS 1 by mouth daily FU ROSEMIDE 40 MG TABS 679797 FUROSEMIDE Inactive KLOR-CON 20 MEQ PACK Take one by mouth daily 8 KLOR-CON 20 MEQ PACK 731628 POTASSIUM CHLORIDE Inactive LISINOPRIL 5 MG TABS 1 by mouth every day LISINOPRIL 5 MG TABS 563868 LISINOPRIL Inactive COLCRYS 0.6 MG TABS 1 po q 6 hours prn gout pain 03/02 COLCRYS 0.6 MG TABS 947398 COLCHICINE Inactive JANUVIA 100 MG TABS 1/2 by mouth every day JANUVI A 100 MG TABS SITAGLIPTIN PHOSPHATE Inactive SIMVASTATIN 20 MG TABS 1 tab daily at bedtime SIMVASTATIN 20 MG TABS 827037 SIMVASTATIN Inactive COUMADIN 6 MG TABS 1 by mouth every other day COUMADIN 6 MG TABS 918456 WARFARIN SODIUM Inactive COUMADIN 5 MG TABS 1 by mouth every other day COUMADIN 5 MG TABS 225274 WARFARIN SODIUM Inactive LISINOPRIL 20 MG TABS 1 tab po at HS KOKI NOPRIL 20 MG TABS 759382 LISINOPRIL Inactive LISINOPRIL-HYDROCHLOROTHIAZIDE 20-12.5 MG TABS 1 tab by mouth da rocky LISINOPRIL-HYDROCHLOROTHIAZIDE 20-12.5 MG TABS 411330 LISINOPRIL-HYDROCHLOROTHIAZIDE Inactive POLYTRIM 13513-4.1 UNIT/ML-% SOLN 1 drop in affected e ye every 3 hours while awake x 7 days POLYTRIM 02489-5.1 UNIT/ML-% SOLN 62836 7 POLYMYXIN B-TRIMETHOPRIM Inactive COUMADIN 4 MG TABS 1 tablet daily COUMADIN 4 MG TABS 284047 WARFARIN SODIUM Inactive CLONIDINE HCL 0.1 MG TABS 1 po bid 7 days, then 1/2 tab po b id 7 days CLONIDINE HCL 0.1 MG TABS 128336 CLONIDINE HCL I nactive ALLOPURINOL 300 MG TABS Take 1 tablet by mouth daily 2 ALLOPURINOL 300 MG TABS 633292 ALLOPURINOL Inactive MECLIZINE HCL 25 MG TAB 1 po tid 3 days, then 1/2 tab tid 3 days MECLIZINE HCL 25 MG TAB 826737 MECLIZINE HCL Inactive LOVENOX 100 MG/ML SC SOLN One injection twice a day 09/15/15 LOVENOX 100 MG/ML SC SOLN 321586 ENOXAPARIN SODIUM Inactive Vital Signs Date Name [...] Range Description Lab Report: CBC - Hematology erythrocyte (RBC) count 4.57 10^6/MM^3 10*6/mm3 4.69-6.1 3 hemoglobin, blood 12.2 g/dL 13.5-17.5 hematocrit, blood 37.3 % 41.0-53.0 mean corpuscular volume, RBC 82 fL 80-97 mean corpuscular hemoglobin, RBC 26.6 pg 27. 0-31.2 mean corpuscular hemoglobin concentration, RBC 32.6 G/DL % 31.8-35.4 red blood cell distribution width 18.0 % 11 .6-14.8 platelet count 276 10^3/MM^3 10*3/mm3 675-379 1287/01/14 leukocyte count, blood 7.1 10^3/MM^3 10*3/mm3 4.6-10.2 Lab Report: Comp. Metabolic Panel - Chem istry carbon dioxide, venous blood 25.4 mmol/L 21.0-32 .0 potassium, serum 4.2 mmol/L 3.5-5.2 chloride, serum 100 mmol/L 98-107 blood glucose 241 mg/dL 65-110 urea nitrogen, blood 25 mg/dL 7-18 creatinine, serum 1.11 mg/dL 0.55-1.30 alanine aminotransferase (SGPT), serum 37 U/L 12-78 aspartate aminotransferase (SGOT), serum 26 U/L 15-37 calcium, serum 9.7 mg/dL 8.5-10.1 bilirubin, serum, total 0.70 mg/dL 0.00-1.00 sodium, serum 136 mmol/L 136-145 Lab Report: HGBA1C - Chemistry hemoglobin A1C, [...] 6.3 % 4.3-6.0 cholesterol, serum 136 mg/dL 345-513 1439/08/09 aspartate aminotransferase (SGOT), serum 24 U/L 15-37 alanine aminotransferase (SGPT), serum 29 U/L 12-78 bilirubin, serum, total 0.60 mg/dL 0.00-1.00 triglyceride, serum, fasting 187 mg/dL 30-200 HDL cholesterol, serum 39 mg/dL 32-96 LDL cholesterol, serum 60 mg/dL 0-130 Lab Report: Lipid Panel, HEPATIC PANEL, MICROALB/CREAT [...] 11.1-13.4 Encounters Code Encounter Date Provider Facility CPT-21669 Level 3 Est. Patient 14:21:06 CDT Mitch luis [facility] CPT-01781 Level 3 Est. Patient 14:52:06 [facility] Patient 09:34:30 CONSTRUCTION REP Mitch ulis [facility] CPT-25213 Level 3 Est. Patient 09:37:15 CDT Mitch Arnol luis [facility] CPT-40676 Level 3 Est. Patient 17:01:00 CONSTRUCTION REP Mitch luis [facility] CPT-77705 Level 3 Est. Patient 13:53:19 CONSTRUCTION REP Mitch Arnol luis [facility] CPT-10067 Level 3 Est. Patient 19:19:37 CONSTRUCTION REP Mitch luis [facility] CPT-61101 Level 3 Est. Patient 13:25:53 CONSTRUCTION REP Tavo toure MD [facility]-90321 Level 3 Est. Patient 18:17:28 CDT Mitch Arnol luis [facility] CPT-87285 Level 3 Est. Patient 15:22:57 CDT Mitch Arnol luis [facility] CPT-23889 Level 3 Est. Patient 18:21:50 CDT Mitch Arnol luis [facility] CPT-57098 Level 3 Est. Patient 18:20:38 CDT Mitch Castellano janelle [facility] CPT-53875 Level 3 Est. Patient 15:37:55 CDT Mitch Arnol L janelle [facility] CPT-09717 Level 2 Est. Patient 15:54:44 CDT Carmine benton MD [facility]-20204 Level 3 Est. Patient 21:46:01 CONSTRUCTION REP Mitch luis [facility] CPT-84785 Level 3 Est. Patient 22:15:50 CDT Mitch luis [facility] CPT-02689 Level 3 Est. Patient 10:48:15 CDT Mitch luis [facility] CPT-42302 Level 3 Est. Patient 23:20:57 CDT Tavo toure MD [facility] CPT-11460 Level 3 Est. Patient 16:26:13 CDT Mitch luis [facility] Procedures Code Procedure Name Date Entry Date Standard Desc ription CPT-71725 Hemoccult IFOBT - LAB USE ONLY 10:27:22 CDT CPT-14306 Venipuncture Draw Fee 08:27:08 CDT CPT-14532 Liver Profile - LAB USE ONLY 08:27:07 CDT 2 CPT-95799 Microalbumin - LAB USE ONLY 08:27:07 CDT 20 25/05/09 CPT-16495 PT/INR - LAB USE ONLY 08:27:07 CDT CPT-97264 HGBA1C - LAB USE ONLY 08:27:07 CDT CPT-19282 CBC - LAB USE ONLY 08:27:07 CDT CPT-61063 Venipuncture Draw Fee 11:09:14 CDT CPT-33573 Venipuncture Draw Fee 08:32:21 CONSTRUCTION REP CPT-53463 Venipuncture Draw Fee 09:38:56 CONSTRUCTION REP CPT-34013 No Charge Offi Visit 21:36:07 CDT 1 CPT-58504 Venipuncture Draw Fee 10:13:28 CONSTRUCTION REP CPT-96601 Venipuncture Draw Fee 08:31:11 CDT CPT-65228 Aspir/Inject Med Joint 18:17:28 CDT CPT-68171 Venipuncture Draw Fee 10:13:30 CDT CPT-17233 Venipuncture Draw Fee 08:31:43 CONSTRUCTION REP CPT-JTINJ Joint Injection 18:34:50 CDT CPT-72438 Knee 3V 12:25:09 CDT CPT-69269 Venipuncture Draw Fee 12:15:57 CDT CPT-060 Medical Surveillance Exam 21:31:43 CDT 2011 CPT-82597 Venipuncture Draw Fee 08:32:05 CONSTRUCTION REP CPT-OV Office Visit 18:19:06 CDT
--- OUTSIDE RECORDS SUMMARY | 2020-01-18 12:32 | XMS REPORT | Clinical Summary ---
Author Author Admin, Mitch Leon Organization [facility] Address Unknown Phone Unavailable Allergies, Adverse Reactions, [...] unspecified hyperlipidemia DIABETES, TYPE 2 250.00 Active Rnean Hays MD Diabetes mellitus without mention of [...] Coronary atherosclerosis of unspecified type of vessel, [place] or graft EDEMA 782.3 Active Mitch Urbina DO Stephen ma DEGENERATIVE JOINT DISEASE, KNEES, 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 3 Active Mitch Urbina DO Osteoarthrosis, unsp ecified whether generalized or localized, involving lower leg DIZZINESS 780.4 Active Mitch Urbina DO D izziness and giddiness CAROTID BRUIT, LEFT 785.9 Active Mitch Urbina DO Other symptoms involving cardiovascular system GOUT, RIGHT WRIST 274.9 Active Mitch rUbina DO Gout, unspecified BRUISE 924.9 Active Mitch [...] 1/2 tab tid 3 days MECLIZINE HCL 49768748338 No Longer Active Corey SEGURA Active ALLOPURINOL 300 MG TABS Take 1 tablet by mouth daily 2 ALLOPURINOL 76114795641 No Longer Active Corey SEGURA Activ e CLONIDINE HCL 0.1 MG TABS 1 po bid 7 days, then 1/2 tab po b id 7 days CLONIDINE HCL 27177032891 No Longer Active Corey SEGURA Active COUMADIN 5 MG TABS 1 tab PO daily WARFARIN SODIUM 93774885426 Active Mitch Urbina DO Active COUMADIN 4 MG TABS 1 tablet daily WARFARIN SODI UM 86204002120 No Longer Active Corey SEGURA Active POLYTRIM 65313-1.1 UNIT/ML-% SOLN 1 drop in affected e ye every 3 hours while awake x 7 days POLYMYXIN B-TRIMETHOPRIM 38824553409 N o Longer Active Corey SEGURA Active LOSARTAN POTASSIUM-HCTZ 100-12.5 MG TABS 1 by mouth da rocky for high blood pressure LOSARTAN POTASSIUM-HCTZ 65302470703 Active Stephy Urbina DO Active LISINOPRIL-HYDROCHLOROTHIAZIDE 20-12.5 MG TABS 1 tab by mouth da rocky LISINOPRIL-HYDROCHLOROTHIAZIDE 17782725341 No Longer Active Mitch luis DO Active LISINOPRIL 20 MG TABS 1 tab po at HS LISINOPRIL 93609853993 No Longer Active Mitch Urbina DO Active COUMADIN 5 MG TABS 1 by mouth every other day WARFARIN SODIUM 99510419374 No Longer Active Mitch Urbina DO Active COUMADIN 6 MG TABS 1 by mouth every other day WARFARIN SODIUM 95771909994 No Longer Active Mitch Urbina DO Active COLCRYS 0.6 MG TABS 1 tab qid prn gout COLCHICINE 49635809457 Active Mitch Urbina DO Active SIMVASTATIN 40 MG TABS 1 tab daily at bedtime S IMVASTATIN 76470723224 Active Mitch Urbina DO Active SIMVASTATIN 20 MG TABS 1 tab daily at bedtime S IMVASTATIN 46520530386 No Longer Active Mitch Urbina DO Active LOVENOX 100 MG/ML SC SOLN One injection twice a day 09/15/15 ENOXAPARIN SODIUM 96020145984 No Longer Active Carmine Navarrete ctive JANUVIA 50 MG TABS Take one by mouth daily DIEGO GLIPTIN PHOSPHATE 22717389586 Active Mitch Urbina DO Active JANUVIA 100 MG TABS 1/2 by mouth every day DIEGO GLIPTIN PHOSPHATE 25458325818 No Longer Active Bijal Philipp RN Active METFORMIN HCL 500 MG TABS 2 by mouth twice daily METFORMIN HCL 90855127745 Active Mitch Urbina DO Active GLIMEPIRIDE 4 MG TABS 1 tab po bid GLIMEPIRIDE 364151 72432 Active Mitch Urbina DO Active COLCRYS 0.6 MG TABS 1 po q 6 hours prn gout pain 03/02 COLCHICINE 28789309870 No Longer Active Camila Leopolis Active LISINOPRIL 5 MG TABS 1 by mouth every day LISIN OPRIL 45101212484 No Longer Active Nguyenmolly Perez Active KLOR-CON 20 MEQ PACK Take one by mouth daily 8 POTASSIUM CHLORIDE 14187601236 No Longer Active Nguyenmolly Perez Active FUROSEMIDE 40 MG TABS 1 by mouth daily FUROSEMI DE 16384994006 No Longer Active Nguyen Perez Active PROVIGIL 200 MG TABS 1/2 tab po q day MODAFINIL 45992 653229 Active Mitch Urbina DO Active PROVIGIL 100 MG TABS Take one by mouth daily MO DAFINIL 62075956474 No Longer Active Mitch Urbina DO Active BACTRIM DS 800-160 MG TAB 1 tab by mouth twice daily 2 TRIMETHOPRIM-SULFAMETHOXAZOLE 19099456147 No Longer Active Renan Hays MD Active FAMOTIDINE 20 MG TABS by mouth twice a day FAMOTI DINE 80024217852 Active Mitch Urbina DO Active ADULT ASPIRIN LOW STRENGTH 81 MG TBDP 1 by mouth every daily ASPIRIN 99910210353 Active Mitch Urbina DO Active METOPROLOL TARTRATE 50 MG TABS 1 by mouth twice daily METOPROLOL TARTRATE 05361890046 Active Mitch Urbina DO Active BACTRIM DS 800-160 MG TAB 1 tab by mouth twice daily 2 BACTRIM DS 800-160 MG TAB TRIMETHOPRIM-SULFAMETHOXAZOLE Inac tive PROVIGIL 100 MG TABS Take one by mouth daily 4 PROVIGIL 100 MG TABS 278086 MODAFINIL Inactive FUROSEMIDE 40 MG TABS 1 by mouth daily FU ROSEMIDE 40 MG TABS 232405 FUROSEMIDE Inactive KLOR-CON 20 MEQ PACK Take one by mouth daily 8 KLOR-CON 20 MEQ PACK 618119 POTASSIUM CHLORIDE Inactive LISINOPRIL 5 MG TABS 1 by mouth every day LISINOPRIL 5 MG TABS 858385 LISINOPRIL Inactive COLCRYS 0.6 MG TABS 1 po q 6 hours prn gout pain 03/02 COLCRYS 0.6 MG TABS COLCHICINE Inactive JANUVIA 100 MG TABS 1/2 by mouth every day JANUVI A 100 MG TABS SITAGLIPTIN PHOSPHATE Inactive SIMVASTATIN 20 MG TABS 1 tab daily at bedtime SIMVASTATIN 20 MG TABS 602537 SIMVASTATIN Inactive COUMADIN 6 MG TABS 1 by mouth every other day COUMADIN 6 MG TABS 144748 WARFARIN SODIUM Inactive COUMADIN 5 MG TABS 1 by mouth every other day COUMADIN 5 MG TABS 155070 WARFARIN SODIUM Inactive LISINOPRIL 20 MG TABS 1 tab po at HS KOKI NOPRIL 20 MG TABS 010939 LISINOPRIL Inactive LISINOPRIL-HYDROCHLOROTHIAZIDE 20-12.5 MG TABS 1 tab by mouth da rocky LISINOPRIL-HYDROCHLOROTHIAZIDE 20-12.5 MG TABS 593413 LISINOPRIL-HYDROCHLOROTHIAZIDE Inactive POLYTRIM 54683-3.1 UNIT/ML-% SOLN 1 drop in affected e ye every 3 hours while awake x 7 days POLYTRIM 79213-0.1 UNIT/ML-% SOLN 10396 7 POLYMYXIN B-TRIMETHOPRIM Inactive COUMADIN 4 MG TABS 1 tablet daily COUMADIN 4 MG TABS 845985 WARFARIN SODIUM Inactive CLONIDINE HCL 0.1 MG TABS 1 po bid 7 days, then 1/2 tab po b id 7 days CLONIDINE HCL 0.1 MG TABS 355499 CLONIDINE HCL I nactive ALLOPURINOL 300 MG TABS Take 1 tablet by mouth daily 2 ALLOPURINOL 300 MG TABS 040857 ALLOPURINOL Inactive MECLIZINE HCL 25 MG TAB 1 po tid 3 days, then 1/2 tab tid 3 days MECLIZINE HCL 25 MG TAB 734133 MECLIZINE HCL Inactive LOVENOX 100 MG/ML SC SOLN One injection twice a day 09/15/15 LOVENOX 100 MG/ML SC SOLN 606670 ENOXAPARIN SODIUM Inactive Vital Signs Date Name [...] Acid - Chemistry sodium, serum 136 mmol/L 606-183 2539/07/25 potassium, serum 4.6 mmol/L 3.5-5.2 chloride, serum [...] 11.4-12.8 international normalized ratio (INR) 2.1 1.0-3.5 Encounters Code Encounter Date Provider Facility CPT-01890 Level 3 Est. 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 Patient 19:19:37 HEAD STILL OPERATOR Mitch luis [facility] CPT-90902 Level 3 Est. Patient 13:25:53 HEAD STILL OPERATOR Tavo toure MD [facility] CPT-58715 Level 3 Est. Patient 18:17:28 CDT Mitch luis [facility] CPT-58250 Level 3 Est. Patient 15:22:57 CDT Mitch luis [facility] [address] CPT-66837 Level 3 Est. Patient 18:21:50 CDT Mitch luis [facility] [address] CPT-69262 Level 3 Est. Patient 18:20:38 CDT Mitch luis [facility] [address] CPT-81294 Level 3 Est. Patient 15:37:55 CDT Mitch luis [facility] CPT-71869 Level 2 Est. Patient 15:54:44 CDT Carmine benton MD [facility] CPT-75949 Level 3 Est. Patient 21:46:01 HEAD STILL OPERATOR Mitch luis [facility] CPT-47751 Level 3 Est. Patient 22:15:50 CDT Mitch luis [facility] CPT-34436 Level 3 Est. Patient 10:48:15 CDT Mitch luis [facility] CPT-83819 Level 3 Est. Patient 23:20:57 CDT Tavo toure MD [facility] CPT-88237 Level 3 Est. Patient 16:26:13 CDT Mitch luis [facility] Procedures Code Procedure Name Date Entry Date Standard Desc ription CPT-87947 Venipuncture Draw Fee 10:13:28 HEAD STILL OPERATOR CPT-04631 Venipuncture Draw Fee 08:31:11 CDT CPT-19612 Aspir/Inject Med Joint 18:17:28 CDT CPT-54371 Venipuncture Draw Fee 10:13:30 CDT CPT-91237 Venipuncture Draw Fee 08:31:43 HEAD STILL OPERATOR CPT-JTINJ Joint Injection 18:34:50 CDT CPT-46187 Knee 3V 12:25:09 CDT CPT-88859 Venipuncture Draw Fee 12:15:57 CDT CPT-060 Medical Surveillance Exam 21:31:43 CDT 2011 CPT-36761 Venipuncture Draw Fee 08:32:05 HEAD STILL OPERATOR CPT-OV Office Visit 18:19:06 CDT
--- OUTSIDE RECORDS SUMMARY | 2020-01-18 12:32 | XMS REPORT | Clinical Summary ---
Author Author Admin, Mitch Leon Organization [facility] [...] Coronary atherosclerosis of unspecified type of vessel, [place] or graft EDEMA 782.3 Resolved Mitch Urbina [...] TABS 1 tab qid prn gout COLCHICINE 81425201788 Active Kathie Juan RPT,RMA Active COUMADIN 1 MG TAB take 1 tab daily with 5mg tab. ( 6mg total ) 2015 WARFARIN SODIUM 02630681718 Active Domi Rivera MA Acti ve INVOKANA 100 MG ORAL TABS 1 tablet orally daily CANAGLIFLOZIN 74578318058 Active Kathie Juan RPT,RMA Active MINOXIDIL 2.5 MG TABS 1 tablet daily for high blood pressure 10/23 MINOXIDIL 13556419556 Active Mitch Urbina DO Active AMLODIPINE BESYLATE 5 MG TABS 1 tablet by mouth daily AMLODIPINE BESYLATE 35012102287 Active Domi Rivera MA Active MECLIZINE HCL 25 MG TAB 1 po tid 3 days, then 1/2 tab tid 3 days MECLIZINE HCL 43989520960 No Longer Active Corey SEGURA Active ALLOPURINOL 300 MG TABS Take 1 tablet by mouth daily 2 ALLOPURINOL 45245274288 No Longer Active Corey SEGURA Activ e CLONIDINE HCL 0.1 MG TABS 1 po bid 7 days, then 1/2 tab po b id 7 days CLONIDINE HCL 50190785888 No Longer Active Corey SEGURA Active COUMADIN 5 MG TABS 1 tab PO daily WARFARIN SODIUM 69379418538 Active Domi Rivera MA Active COUMADIN 4 MG TABS 1 tablet daily WARFARIN SODI UM 50155331946 No Longer Active Corey SEGURA Active POLYTRIM 72600-0.1 UNIT/ML-% SOLN 1 drop in affected e ye every 3 hours while awake x 7 days POLYMYXIN B-TRIMETHOPRIM 32105454320 N o Longer Active Corey SEGURA Active LOSARTAN POTASSIUM-HCTZ 100-12.5 MG TABS 1 by mouth da [place] for high blood pressure LOSARTAN POTASSIUM-HCTZ 83005997767 Active Domi Rivera MA Active LISINOPRIL-HYDROCHLOROTHIAZIDE 20-12.5 MG TABS 1 tab by mouth da rocky LISINOPRIL-HYDROCHLOROTHIAZIDE 23076846187 No Longer Active Mitch luis DO Active LISINOPRIL 20 MG TABS 1 tab po at HS LISINOPRIL 38859054293 No Longer Active Mitch Urbina DO Active COUMADIN 5 MG TABS 1 by mouth every other day WARFARIN SODIUM 21251061030 No Longer Active Mitch Urbina DO Active COUMADIN 6 MG TABS 1 by mouth every other day WARFARIN SODIUM 42537588188 No Longer Active Mitch Urbina DO Active SIMVASTATIN 40 MG TABS 1 tab daily at bedtime S IMVASTATIN 01957357377 Active Domi Rivera MA Active SIMVASTATIN 20 MG TABS 1 tab daily at bedtime S IMVASTATIN 97852671688 No Longer Active Mitch Urbina DO Active LOVENOX 100 MG/ML SC SOLN One injection twice a day 09/15/15 ENOXAPARIN SODIUM 46636723758 No Longer Active Carmine Navarrete ctive JANUVIA 50 MG TABS Take one by mouth daily DIEGO GLIPTIN PHOSPHATE 75831925072 Active Domi Rivera MA Active JANUVIA 100 MG TABS 1/2 by mouth every day DIEGO GLIPTIN PHOSPHATE 37171070381 No Longer Active Bijal Segal RN Active METFORMIN HCL 500 MG TABS 2 by mouth twice daily METFORMIN HCL 62575009977 Active Kathie Juan RPT,RMA Active GLIMEPIRIDE 4 MG TABS 1 tab po bid GLIMEPIRIDE 528480 55283 Active Kathie Juan RPT,RMA Active COLCRYS 0.6 MG TABS 1 po q 6 hours prn gout pain 03/02 COLCHICINE 32016926785 No Longer Active Camila Reese Active LISINOPRIL 5 MG TABS 1 by mouth every day LISIN OPRIL 95029651311 No Longer Active Nguyen Perez Active KLOR-CON 20 MEQ PACK Take one by mouth daily 8 POTASSIUM CHLORIDE 94051191623 No Longer Active Nguyen Perez Active FUROSEMIDE 40 MG TABS 1 by mouth daily FUROSEMI DE 45987267195 No Longer Active Nguyen Perez Active PROVIGIL 200 MG TABS 1/2 tab po q day MODAFINIL 21725 787526 Active Domi Rivera MA Active PROVIGIL 100 MG TABS Take one by mouth daily MO DAFINIL 08605243395 No Longer Active Mitch Urbina DO Active BACTRIM DS 800-160 MG TAB 1 tab by mouth twice daily 2 TRIMETHOPRIM-SULFAMETHOXAZOLE 32829244804 No Longer Active Renan Hays MD Active FAMOTIDINE 20 MG TABS by mouth twice a day FAMOTI DINE 22699172468 Active Mitch Urbina DO Active ADULT ASPIRIN LOW STRENGTH 81 MG TBDP 1 by mouth every daily ASPIRIN 32328449692 Active Mitch Urbina DO Active METOPROLOL TARTRATE 50 MG TABS 1 by mouth twice daily METOPROLOL TARTRATE 36787918851 Active Domi Rivera MA Active BACTRIM DS 800-160 MG TAB 1 tab by mouth twice daily 2 BACTRIM DS 800-160 MG TAB 460857 TRIMETHOPRIM-SULFAMETHOXAZOLE Inac tive PROVIGIL 100 MG TABS Take one by mouth daily 4 PROVIGIL 100 MG TABS 716910 MODAFINIL Inactive FUROSEMIDE 40 MG TABS 1 by mouth daily FU ROSEMIDE 40 MG TABS 300878 FUROSEMIDE Inactive KLOR-CON 20 MEQ PACK Take one by mouth daily 8 KLOR-CON 20 MEQ PACK 495467 POTASSIUM CHLORIDE Inactive LISINOPRIL 5 MG TABS 1 by mouth every day LISINOPRIL 5 MG TABS 913588 LISINOPRIL Inactive COLCRYS 0.6 MG TABS 1 po q 6 hours prn gout pain 03/02 COLCRYS 0.6 MG TABS 973407 COLCHICINE Inactive JANUVIA 100 MG TABS 1/2 by mouth every day JANUVI A 100 MG TABS SITAGLIPTIN PHOSPHATE Inactive SIMVASTATIN 20 MG TABS 1 tab daily at bedtime SIMVASTATIN 20 MG TABS 225081 SIMVASTATIN Inactive COUMADIN 6 MG TABS 1 by mouth every other day COUMADIN 6 MG TABS 687433 WARFARIN SODIUM Inactive COUMADIN 5 MG TABS 1 by mouth every other day COUMADIN 5 MG TABS 149312 WARFARIN SODIUM Inactive LISINOPRIL 20 MG TABS 1 tab po at HS KOKI NOPRIL 20 MG TABS 831108 LISINOPRIL Inactive LISINOPRIL-HYDROCHLOROTHIAZIDE 20-12.5 MG TABS 1 tab by mouth da rocky LISINOPRIL-HYDROCHLOROTHIAZIDE 20-12.5 MG TABS 040826 LISINOPRIL-HYDROCHLOROTHIAZIDE Inactive POLYTRIM 25602-0.1 UNIT/ML-% SOLN 1 drop in affected e ye every 3 hours while awake x 7 days POLYTRIM 10952-5.1 UNIT/ML-% SOLN 20334 7 POLYMYXIN B-TRIMETHOPRIM Inactive COUMADIN 4 MG TABS 1 tablet daily COUMADIN 4 MG TABS 273839 WARFARIN SODIUM Inactive CLONIDINE HCL 0.1 MG TABS 1 po bid 7 days, then 1/2 tab po b id 7 days CLONIDINE HCL 0.1 MG TABS 929761 CLONIDINE HCL I nactive ALLOPURINOL 300 MG TABS Take 1 tablet by mouth daily 2 ALLOPURINOL 300 MG TABS 770036 ALLOPURINOL Inactive MECLIZINE HCL 25 MG TAB 1 po tid 3 days, then 1/2 tab tid 3 days MECLIZINE HCL 25 MG TAB 877193 MECLIZINE HCL Inactive LOVENOX 100 MG/ML SC SOLN One injection twice a day 20 09/15/15 LOVENOX 100 MG/ML SC SOLN 089620 ENOXAPARIN SODIUM Inactive Vital Signs Date Name [...] blood 7.1 10^3/MM^3 10*3/mm3 4.6-10.2 mean corpuscular hemoglobin concentration, RBC 32.6 G/DL % 31.8-35.4 red blood cell distribution width 18.0 % 11 .6-14.8 platelet count 276 10^3/MM^3 10*3/mm3 159-639 7207/01/14 erythrocyte (RBC) count 4.57 10^6/MM^3 10*6/mm3 4.69-6.1 3 hemoglobin, blood 12.2 g/dL 13.5-17.5 hematocrit, blood 37.3 % 41.0-53.0 mean corpuscular volume, RBC 82 fL 80-97 mean corpuscular hemoglobin, RBC 26.6 pg 27. 0-31.2 Lab Report: Comp. Metabolic Panel - Chem istry sodium, serum 136 mmol/L 715-345 5985/01/14 carbon dioxide, venous blood 25.4 mmol/L 21.0-32 [...] ratio (INR) 2.2 1.0-3.5 prothrombin time (patient) 18.1 SECS s 11.1-13.4 prothrombin time (patient) 14.5 SECS s 11.1-13.4 international normalized ratio (INR) 1.5 1.0-3.5 prothrombin time (patient) 16.2 SECS s 11.1-13.4 international normalized ratio (INR) 1.8 1.0-3.5 prothrombin time (patient) 16.9 SECS s 11.1-13.4 international normalized ratio (INR) 2.0 1.0-3.5 prothrombin time (patient) 15.8 SECS s 11.1-13.4 international normalized ratio (INR) 1.8 1.0-3.5 Encounters Code Encounter Date Provider Facility CPT-10200 Level 3 Est. Patient 09:34:30 REFRIGERATION SUPERVISOR Mitch luis DO [facility] CPT-21212 Level 3 Est. Patient 09:37:15 CDT Mitch luis DO [facility] CPT-82301 Level 3 Est. Patient 17:01:00 REFRIGERATION SUPERVISOR Mitch luis DO [facility] CPT-48392 Level 3 Est. Patient 13:53:19 REFRIGERATION SUPERVISOR Mitch luis [facility] CPT-39698 Level 3 Est. Patient 19:19:37 REFRIGERATION SUPERVISOR Mitch luis [facility] CPT-94092 Level 3 Est. Patient 13:25:53 REFRIGERATION SUPERVISOR Tavo toure MD [facility] CPT-89095 Level 3 Est. Patient 18:17:28 CDT Mitch luis [facility] CPT-76537 Level 3 Est. Patient 15:22:57 CDT Mitch W L janelle [facility] CPT-21223 Level 3 Est. Patient 18:21:50 CDT Mitch W Nona luis [facility] CPT-13690 Level 3 Est. Patient 18:20:38 CDT Mitch luis [facility] CPT-91498 Level 3 Est. Patient 15:37:55 CDT Mitch luis [facility] CPT-38075 Level 2 Est. Patient 15:54:44 CDT Carmine benton MD [facility] CPT-32710 Level 3 Est. Patient 21:46:01 REFRIGERATION SUPERVISOR Mitch luis [facility] CPT-70251 Level 3 Est. Patient 22:15:50 CDT Mitch luis [facility] CPT-13070 Level 3 Est. Patient 10:48:15 CDT Mitch luis [facility] CPT-94326 Level 3 Est. Patient 23:20:57 CDT Tavo toure MD [facility] CPT-91144 Level 3 Est. Patient 16:26:13 CDT Mitch Arnol L janelle [facility] Procedures Code Procedure Name Date Entry Date Standard Desc ription CPT-24859 Venipuncture Draw Fee 08:32:21 REFRIGERATION SUPERVISOR CPT-93614 Venipuncture Draw Fee 09:38:56 REFRIGERATION SUPERVISOR CPT-09817 No Charge Offi Visit 21:36:07 CDT 1 CPT-35691 Venipuncture Draw Fee 10:13:28 REFRIGERATION SUPERVISOR CPT-41636 Venipuncture Draw Fee 08:31:11 CDT CPT-29346 Aspir/Inject Med Joint 18:17:28 CDT CPT-47226 Venipuncture Draw Fee 10:13:30 CDT CPT-90773 Venipuncture Draw Fee 08:31:43 REFRIGERATION SUPERVISOR CPT-JTINJ Joint Injection 18:34:50 CDT CPT-56910 Knee 3V 12:25:09 CDT CPT-44060 Venipuncture Draw Fee 12:15:57 CDT CPT-060 Medical Surveillance Exam 21:31:43 CDT 2011 CPT-14481 Venipuncture Draw Fee 08:32:05 REFRIGERATION SUPERVISOR CPT-OV Office Visit 18:19:06 CDT
--- OUTSIDE RECORDS SUMMARY | 2020-01-18 12:32 | XMS REPORT | Clinical Summary ---
Author Author Admin, Mitch Leon Organization [facility] Address Unknown Phone Unavailable [...] Coronary atherosclerosis of unspecified type of vessel, chickaloon or graft EDEMA 782.3 Active Mitch Urbina [...] 1 tablet by mouth daily AMLODIPINE BESYLATE 41159047315 Active Mitch Urbina DO Active MECLIZINE HCL 25 MG TAB 1 po tid 3 days, then 1/2 tab tid 3 days MECLIZINE HCL 71253959020 No Longer Active Corey SEGURA Active ALLOPURINOL 300 MG TABS Take 1 tablet by mouth daily 2 ALLOPURINOL 89963657328 No Longer Active Corey SEGURA Activ e CLONIDINE HCL 0.1 MG TABS 1 po bid 7 days, then 1/2 tab po b id 7 days CLONIDINE HCL 88607372011 No Longer Active Corey SEGURA Active COUMADIN 5 MG TABS 1 tab PO daily WARFARIN SODIUM 95861736221 Active Mitch Urbina DO Active COUMADIN 4 MG TABS 1 tablet daily WARFARIN SODI UM 10433399238 No Longer Active Corey SEGURA Active POLYTRIM 18370-5.1 UNIT/ML-% SOLN 1 drop in affected e ye every 3 hours while awake x 7 days POLYMYXIN B-TRIMETHOPRIM 15093724714 N o Longer Active Corey SEGURA Active LOSARTAN POTASSIUM-HCTZ 100-12.5 MG TABS 1 by mouth da rocky for high blood pressure LOSARTAN POTASSIUM-HCTZ 50085650662 Active Stephy Urbina DO Active LISINOPRIL-HYDROCHLOROTHIAZIDE 20-12.5 MG TABS 1 tab by mouth da rocky LISINOPRIL-HYDROCHLOROTHIAZIDE 36623804449 No Longer Active Mitch luis DO Active LISINOPRIL 20 MG TABS 1 tab po at HS LISINOPRIL 55341963233 No Longer Active Mitch Urbina DO Active COUMADIN 5 MG TABS 1 by mouth every other day WARFARIN SODIUM 13108139693 No Longer Active Mitch Urbina DO Active COUMADIN 6 MG TABS 1 by mouth every other day WARFARIN SODIUM 63220219183 No Longer Active Mitch Urbina DO Active COLCRYS 0.6 MG TABS 1 tab qid prn gout COLCHICINE 56758904563 Active Mitch Urbina DO Active SIMVASTATIN 40 MG TABS 1 tab daily at bedtime S IMVASTATIN 47383626915 Active Mitch Urbina DO Active SIMVASTATIN 20 MG TABS 1 tab daily at bedtime S IMVASTATIN 21751920750 No Longer Active Mitch Urbina DO Active LOVENOX 100 MG/ML SC SOLN One injection twice a day 09/15/15 ENOXAPARIN SODIUM 50215984977 No Longer Active Carmine Navarrete ctive JANUVIA 50 MG TABS Take one by mouth daily DIEGO GLIPTIN PHOSPHATE 40294753039 Active Mitch Urbina DO Active JANUVIA 100 MG TABS 1/2 by mouth every day DIEGO GLIPTIN PHOSPHATE 36380726277 No Longer Active Bijal Philipp RN Active METFORMIN HCL 500 MG TABS 2 by mouth twice daily METFORMIN HCL 71457961177 Active Mitch Urbina DO Active GLIMEPIRIDE 4 MG TABS 1 tab po bid GLIMEPIRIDE 783910 38339 Active Mitch Urbina DO Active COLCRYS 0.6 MG TABS 1 po q 6 hours prn gout pain 03/02 COLCHICINE 85436965434 No Longer Active Camila Reese Active LISINOPRIL 5 MG TABS 1 by mouth every day LISIN OPRIL 05965807166 No Longer Active Nguyen Perez Active KLOR-CON 20 MEQ PACK Take one by mouth daily 8 POTASSIUM CHLORIDE 34058067791 No Longer Active Nguyen Perez Active FUROSEMIDE 40 MG TABS 1 by mouth daily FUROSEMI DE 53026048016 No Longer Active Nguyen Perez Active PROVIGIL 200 MG TABS 1/2 tab po q day MODAFINIL 78225 557001 Active Mitch Urbina DO Active PROVIGIL 100 MG TABS Take one by mouth daily MO DAFINIL 20270815218 No Longer Active Mitch Urbina DO Active BACTRIM DS 800-160 MG TAB 1 tab by mouth twice daily 2 TRIMETHOPRIM-SULFAMETHOXAZOLE 59794978625 No Longer Active Renan Hays MD Active FAMOTIDINE 20 MG TABS by mouth twice a day FAMOTI DINE 11358562938 Active Mitch Urbina DO Active ADULT ASPIRIN LOW STRENGTH 81 MG TBDP 1 by mouth every daily ASPIRIN 73223577755 Active Mitch Urbina DO Active METOPROLOL TARTRATE 50 MG TABS 1 by mouth twice daily METOPROLOL TARTRATE 46488701893 Active Mitch W Carlitos DO Active BACTRIM DS 800-160 MG TAB 1 tab by mouth twice daily 2 BACTRIM DS 800-160 MG TAB TRIMETHOPRIM-SULFAMETHOXAZOLE Inac tive PROVIGIL 100 MG TABS Take one by mouth daily 4 PROVIGIL 100 MG TABS 114002 MODAFINIL Inactive FUROSEMIDE 40 MG TABS 1 by mouth daily FU ROSEMIDE 40 MG TABS 123803 FUROSEMIDE Inactive KLOR-CON 20 MEQ PACK Take one by mouth daily 8 KLOR-CON 20 MEQ PACK 278262 POTASSIUM CHLORIDE Inactive LISINOPRIL 5 MG TABS 1 by mouth every day LISINOPRIL 5 MG TABS 660042 LISINOPRIL Inactive COLCRYS 0.6 MG TABS 1 po q 6 hours prn gout pain 03/02 COLCRYS 0.6 MG TABS COLCHICINE Inactive JANUVIA 100 MG TABS 1/2 by mouth every day JANUVI A 100 MG TABS SITAGLIPTIN PHOSPHATE Inactive SIMVASTATIN 20 MG TABS 1 tab daily at bedtime SIMVASTATIN 20 MG TABS 038058 SIMVASTATIN Inactive COUMADIN 6 MG TABS 1 by mouth every other day COUMADIN 6 MG TABS 091560 WARFARIN SODIUM Inactive COUMADIN 5 MG TABS 1 by mouth every other day COUMADIN 5 MG TABS 310203 WARFARIN SODIUM Inactive LISINOPRIL 20 MG TABS 1 tab po at HS KOKI NOPRIL 20 MG TABS 953026 LISINOPRIL Inactive LISINOPRIL-HYDROCHLOROTHIAZIDE 20-12.5 MG TABS 1 tab by mouth da rocky LISINOPRIL-HYDROCHLOROTHIAZIDE 20-12.5 MG TABS 844275 LISINOPRIL-HYDROCHLOROTHIAZIDE Inactive POLYTRIM 91633-2.1 UNIT/ML-% SOLN 1 drop in affected e ye every 3 hours while awake x 7 days POLYTRIM 71580-9.1 UNIT/ML-% SOLN 60635 7 POLYMYXIN B-TRIMETHOPRIM Inactive COUMADIN 4 MG TABS 1 tablet daily COUMADIN 4 MG TABS 984863 WARFARIN SODIUM Inactive CLONIDINE HCL 0.1 MG TABS 1 po bid 7 days, then 1/2 tab po b id 7 days CLONIDINE HCL 0.1 MG TABS 276020 CLONIDINE HCL I nactive ALLOPURINOL 300 MG TABS Take 1 tablet by mouth daily 2 ALLOPURINOL 300 MG TABS 295379 ALLOPURINOL Inactive MECLIZINE HCL 25 MG TAB 1 po tid 3 days, then 1/2 tab tid 3 days MECLIZINE HCL 25 MG TAB 341152 MECLIZINE HCL Inactive LOVENOX 100 MG/ML SC SOLN One injection twice a day 09/15/15 LOVENOX 100 MG/ML SC SOLN 837599 ENOXAPARIN SODIUM Inactive Vital Signs Date Name [...] international normalized ratio (INR) coagulation managed by Mithc Urbina DO international normalized ratio (INR) Lab Report: CBC, Comp. Metabolic Panel, HGBA1C, MICROALBUMIN, Uric Acid - Chemistry albumin/creatinine ratio, urine < 30 mg/g mg/g{creat} 0-2 9 uric acid, serum 10.3 mg/dL 2.6-7.2 sodium, serum 136 mmol/L 853-266 4886/07/25 potassium, serum 4.6 mmol/L 3.5-5.2 chloride, serum [...] Panel - Chemistry sodium, serum 137 mmol/L 955-748 7912/11/14 potassium, serum 4.4 mmol/L 3.5-5.2 chloride, serum [...] 8.0 % 4.3-6.0 cholesterol, serum 130 mg/dL 206-641 1098/11/14 triglyceride, serum, fasting 288 mg/dL 30-200 HDL cholesterol, serum 33 mg/dL 32-96 LDL cholesterol, serum 39 mg/dL 0-130 Lab Report: Comp. Metabolic Panel, HGBA1 C, Lipid Panel, Prothrombin Time - Chemistry sodium, serum 136 mmol/L 157-699 6583/12/02 potassium, serum 4.4 mmol/L 3.5-5.2 chloride, serum [...] 7.6 % 4.3-6.0 cholesterol, serum 117 mg/dL 450-765 3692/12/02 triglyceride, serum, fasting 226 mg/dL 30-200 HDL [...] 1.0-3.5 Encounters Code Encounter Date Provider Facility CPT-83987 Level 3 Est. Patient 17:01:00 OIL DISTRIBUTOR Mitch Ambrose L janelle DO [facility] CPT-30392 Level 3 Est. Patient 13:53:19 OIL DISTRIBUTOR Mitch W L janelle DO [facility] CPT-93226 Level 3 Est. Patient 19:19:37 OIL DISTRIBUTOR Mitch W L janelle [facility] CPT-75932 Level 3 Est. Patient 13:25:53 OIL DISTRIBUTOR Tavo toure MD [facility] CPT-12197 Level 3 Est. Patient 18:17:28 CDT Mitch Ambrose L janelle [facility] CPT-33983 Level 3 Est. Patient 15:22:57 CDT Mitch W L janelle [facility] CPT-57892 Level 3 Est. Patient 18:21:50 CDT Mitch W L janelle [facility] CPT-00135 Level 3 Est. Patient 18:20:38 CDT Mitch W L janelle [facility] CPT-43836 Level 3 Est. Patient 15:37:55 CDT Mitch W L ee [facility] CPT-92705 Level 2 Est. Patient 15:54:44 CDT Carmine benton MD [facility]-43291 Level 3 Est. Patient 21:46:01 OIL DISTRIBUTOR Mitch W L ee [facility] CPT-35190 Level 3 Est. Patient 22:15:50 CDT Mitch W L ee [facility] CPT-53555 Level 3 Est. Patient 10:48:15 CDT Mitch luis [facility] CPT-45566 Level 3 Est. Patient 23:20:57 CDT Tavo toure MD [facility] CPT-51463 Level 3 Est. Patient 16:26:13 CDT Mitch luis [facility] Procedures Code Procedure Name Date Entry Date Standard Desc ription CPT-04816 Venipuncture Draw Fee 10:13:28 OIL DISTRIBUTOR CPT-74526 Venipuncture Draw Fee 08:31:11 CDT CPT-67769 Aspir/Inject Med Joint 18:17:28 CDT CPT-42093 Venipuncture Draw Fee 10:13:30 CDT CPT-48582 Venipuncture Draw Fee 08:31:43 OIL DISTRIBUTOR CPT-JTINJ Joint Injection 18:34:50 CDT CPT-29716 Knee 3V 12:25:09 CDT CPT-09843 Venipuncture Draw Fee 12:15:57 CDT CPT-060 Medical Surveillance Exam 21:31:43 CDT 2011 CPT-39137 Venipuncture Draw Fee 08:32:05 OIL DISTRIBUTOR CPT-OV Office Visit 18:19:06 CDT
--- OUTSIDE RECORDS SUMMARY | 2020-01-18 12:32 | XMS REPORT | Clinical Summary ---
Author Author Admin, Mitch Leon Organization [facility] Address Unknown Phone Unavailable Allergies, Adverse Reactions, [...] DO Hypoglycemia, unspecified GOUT, WRIST 274.9 Active Micth Urbina DO Gout, unspecified LONG-TERM (CURRENT) USE OF ANTICOAGULANTS V58.61 Resol kylah Mitch Urbina DO Long-term (current) use of anticoagulant s HEALTH MAINTENANCE EXAM V70.0 Active Mitch Meraz DO Routine general medical examination at a health care facility CORONARY HEART DISEASE 414.00 Active Mitch Urbina DO Coronary atherosclerosis of unspecified type of vessel, barrow or graft EDEMA 782.3 Resolved Mitch Urbina [...] 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 Carmine bentno MD Benign neoplasm of colon Coumadin therapy [...] ORAL TABLET 1 po BID GLIMEPIRID E 05438725450 Active Ana Wallace Active KEFLEX 500 MG ORAL CAPSULE 1 po qid CEPHALEXI N 51561750737 No Longer Active Mitch Urbina DO Active LOSARTAN POTASSIUM 100 MG ORAL TABLET 1 pill by mouth daily, for blood pressure LOSARTAN POTASSIUM 27158690179 Active Ana Wallace Active AMLODIPINE BESYLATE 5 MG ORAL TABLET 1 tablet by mouth daily 201 01/20/04 AMLODIPINE BESYLATE 06245660488 No Longer Active Devonjustincarlitos fulton ANNIE Active MITIGARE 0.6 MG ORAL CAPSULE 2 capsules at onset of go ut pain, then take one capsule at 1 hour if symptoms persist. COLCHICINE 59 300875653 Active Mitch Urbina DO Active COUMADIN 1 MG ORAL TABLET 2 tabs orally daily with the 5mg tab to equal 7mg daily WARFARIN SODIUM 03085734602 Active Ana Wallace Active COLCRYS 0.6 MG ORAL TABLET 1 tab qid prn gout C OLCHICINE 66390005041 Active Norma Cazares Active INVOKANA 100 MG ORAL TABLET 1 tablet orally daily CANAGLIFLOZIN 91984349557 Active Mitch Urbina DO Active MINOXIDIL 2.5 MG ORAL TABLET 1 tablet daily for high blood press ure MINOXIDIL 88485447429 Active Mitch Urbina DO Active MECLIZINE HCL 25 MG ORAL TABLET 1 po tid 3 days, then 1/2 ta b tid 3 days MECLIZINE HCL 92833934170 No Longer Active Corey SEGURA Active ALLOPURINOL 300 MG ORAL TABLET Take 1 tablet by mouth daily 2012 ALLOPURINOL 69506258485 No Longer Active Corey SEGURA Active CLONIDINE HCL 0.1 MG ORAL TABLET 1 po bid 7 days, then 1/2 t ab po bid 7 days CLONIDINE HCL 77482245959 No Longer Active Corey SEGURA Active COUMADIN 5 MG ORAL TABLET 1 tab PO daily WARFAR IN SODIUM 99678563059 Active Mitch Urbina DO Active COUMADIN 4 MG ORAL TABLET 1 tablet daily WARFAR IN SODIUM 96798495825 No Longer Active Corey SEGURA Active POLYTRIM 34672-6.1 UNIT/ML-% OPHTHALMIC SOLUTION 1 rui p in affected eye every 3 hours while awake x 7 days POLYMYXIN B-TRIMETHOP RIM 66027271005 No Longer Active Corey SEGURA Active LOSARTAN POTASSIUM-HCTZ 100-12.5 MG ORAL TABLET 1 by m outh daily for high blood pressure LOSARTAN POTASSIUM-HCTZ 52773994970 No Longer A ctive Mitch Urbina DO Active LISINOPRIL-HYDROCHLOROTHIAZIDE 20-12.5 MG ORAL TABLET 1 tab by m outh daily LISINOPRIL-HYDROCHLOROTHIAZIDE 23027563925 No Longer Active Mitch Urbina DO Active LISINOPRIL 20 MG ORAL TABLET 1 tab po at HS LIS INOPRIL 35276972514 No Longer Active Mitch Urbina DO Active COUMADIN 5 MG ORAL TABLET 1 by mouth every other day 2 WARFARIN SODIUM 53513146962 No Longer Active Mitch Urbina DO Active COUMADIN 6 MG ORAL TABLET 1 by mouth every other day 2 WARFARIN SODIUM 77659916213 No Longer Active Mitch Urbina DO Active SIMVASTATIN 40 MG ORAL TABLET 1 tab daily at bedtime SIMVASTATIN 00559819347 Active Mitch Urbina DO Active SIMVASTATIN 20 MG ORAL TABLET 1 tab daily at bedtime 2 SIMVASTATIN 53342668994 No Longer Active Mitch Urbina DO Active LOVENOX 100 MG/ML SUBCUTANEOUS SOLUTION One injection twice a da y ENOXAPARIN SODIUM 96915506011 No Longer Active Carmine Yusuf MD Active JANUVIA 50 MG ORAL TABLET Take one by mouth daily SITAGLIPTIN PHOSPHATE 89061874914 Active Mitch Urbina DO Active JANUVIA 100 MG ORAL TABLET 1/2 by mouth every day 2011 SITAGLIPTIN PHOSPHATE 75048861487 No Longer Active Bijal Segal RN Acti ve METFORMIN HCL 500 MG ORAL TABLET 2 by mouth twice daily METFORMIN HCL 57852775090 Active Mitch Urbina DO Active COLCRYS 0.6 MG ORAL TABLET 1 po q 6 hours prn gout pain COLCHICINE 80497752979 No Longer Active Camila Reese Active LISINOPRIL 5 MG ORAL TABLET 1 by mouth every day 11/17 LISINOPRIL 19853382097 No Longer Active Nguyen Coekman Active KLOR-CON 20 MEQ ORAL PACKET Take one by mouth daily 09/10/08 POTASSIUM CHLORIDE 57589998374 No Longer Active Nguyen Coekman Active FUROSEMIDE 40 MG ORAL TABLET 1 by mouth daily F UROSEMIDE 43339945414 No Longer Active Nguyen Coekman Active PROVIGIL 200 MG ORAL TABLET 1/2 tab po q day MODA FINIL 46970989989 Active Mitch Urbina DO Active PROVIGIL 100 MG ORAL TABLET Take one by mouth daily 08/20/04 MODAFINIL 05163279460 No Longer Active Mitch Urbina DO Active BACTRIM DS 800-160 MG ORAL TABLET 1 tab by mouth twice daily 201 10/19/09 TRIMETHOPRIM-SULFAMETHOXAZOLE 53396405930 No Longer Active Elian Hays MD Active FAMOTIDINE 20 MG ORAL TABLET by mouth twice a day FAMOTIDINE 10616021791 Active Mitch Urbina DO Active ADULT ASPIRIN LOW STRENGTH 81 MG ORAL TABLET DISINTEGR ATING 1 by mouth every daily ASPIRIN 83027471388 Active Mitch Urbina DO Ac tive METOPROLOL TARTRATE 50 MG ORAL TABLET 1 by mouth twice daily METOPROLOL TARTRATE 76466711734 Active Mitch Urbina DO Active BACTRIM DS 800-160 MG ORAL TABLET 1 tab by mouth twice daily 201 10/19/09 BACTRIM DS 800-160 MG ORAL TABLET 912470 TRIMETHOPRIM-SULFAMETHOXAZOLE Inactive PROVIGIL 100 MG ORAL TABLET Take one by mouth daily 08/20/04 PROVIGIL 100 MG ORAL TABLET 951282 MODAFINIL Inactive FUROSEMIDE 40 MG ORAL TABLET 1 by mouth daily FUROSEMIDE 40 MG ORAL TABLET 332949 FUROSEMIDE Inactive KLOR-CON 20 MEQ ORAL PACKET Take one by mouth daily 09/10/08 KLOR- CON 20 MEQ ORAL PACKET 6606033 POTASSIUM CHLORIDE Inactive LISINOPRIL 5 MG ORAL TABLET 1 by mouth every day 11/17 LISINOPRIL 5 MG ORAL TABLET 576051 LISINOPRIL Inactive COLCRYS 0.6 MG ORAL TABLET 1 po q 6 hours prn gout pain COLCRYS 0.6 MG ORAL TABLET 741739 COLCHICINE Inactive JANUVIA 100 MG ORAL TABLET 1/2 by mouth every day 2011 JANUVIA 100 MG ORAL TABLET SITAGLIPTIN PHOSPHATE Inactive SIMVASTATIN 20 MG ORAL TABLET 1 tab daily at bedtime 2 SIMVASTATIN 20 MG ORAL TABLET 968294 SIMVASTATIN Inactive COUMADIN 6 MG ORAL TABLET 1 by mouth every other day 2 COUMADIN 6 MG ORAL TABLET 682515 WARFARIN SODIUM Inactive COUMADIN 5 MG ORAL TABLET 1 by mouth every other day 2 COUMADIN 5 MG ORAL TABLET 694294 WARFARIN SODIUM Inactive LISINOPRIL 20 MG ORAL TABLET 1 tab po at HS LISINOPRIL 20 MG ORAL TABLET 732886 LISINOPRIL Inactive LISINOPRIL-HYDROCHLOROTHIAZIDE 20-12.5 MG ORAL TABLET 1 tab by m outh daily LISINOPRIL-HYDROCHLOROTHIAZIDE 20-12.5 MG ORAL TABLET 885048 LISINOPRIL-HYDROCHLOROTHIAZIDE Inactive POLYTRIM 81999-4.1 UNIT/ML-% OPHTHALMIC SOLUTION 1 rui p in affected eye every 3 hours while awake x 7 days POLYTRIM 1000 0-0.1 UNIT/ML-% OPHTHALMIC SOLUTION 314246 POLYMYXIN B-TRIMETHOPRIM Inactive COUMADIN 4 MG ORAL TABLET 1 tablet daily COUMADIN 4 MG ORAL TABLET 604369 WARFARIN SODIUM Inactive CLONIDINE HCL 0.1 MG ORAL TABLET 1 po bid 7 days, then 1/2 t ab po bid 7 days CLONIDINE HCL 0.1 MG ORAL TABLET 747066 CLONIDIN E HCL Inactive ALLOPURINOL 300 MG ORAL TABLET Take 1 tablet by mouth daily 2012 ALLOPURINOL 300 MG ORAL TABLET 639250 ALLOPURINOL I nactive MECLIZINE HCL 25 MG ORAL TABLET 1 po tid 3 days, then 1/2 ta b tid 3 days MECLIZINE HCL 25 MG ORAL TABLET 737042 MECLIZINE HCL Inactive AMLODIPINE BESYLATE 5 MG ORAL TABLET 1 tablet by mouth daily 201 01/20/04 AMLODIPINE BESYLATE 5 MG ORAL TABLET 814247 AMLODIPINE BESYLATE Inactive KEFLEX 500 MG ORAL CAPSULE 1 po qid K EFLEX 500 MG ORAL CAPSULE 526688 CEPHALEXIN Inactive LOVENOX 100 MG/ML SUBCUTANEOUS SOLUTION One injection twice a da y LOVENOX 100 MG/ML SUBCUTANEOUS SOLUTION 354498 ENOXAPAR IN SODIUM Inactive Vital Signs Date Name Value Unit Range Description blood pressure, diastolic 82 mm[Hg] BP maen [...] - Chem istry sodium, serum 139 mmol/L 715-514 5045/07/17 potassium, serum 4.2 mmol/L 3.5-5.2 chloride, serum 102 mmol/L 98-107 carbon dioxide, venous blood 28.9 mmol/L 21.0-32 .0 blood glucose 211 mg/dL 65-110 calcium, serum 10.6 mg/dL 8.5-10.1 urea nitrogen, blood 29 mg/dL 7-18 creatinine, serum 1.24 mg/dL 0.60-1.30 sodium, serum 141 mmol/L 680-956 6511/08/07 potassium, serum 4.5 mmol/L 3.5-5.2 chloride, serum [...] ... - Chemistry sodium, serum 144 mmol/L 048-746 0897/06/12 carbon dioxide, venous blood 26.6 mmol/L 21.0-32 [...] HGBA1C - Chemistry cholesterol, serum 136 mg/dL 252-115 4577/12/06 triglyceride, serum, fasting 247 mg/dL 30-200 HDL [...] 1.0-3.5 Encounters Code Encounter Date Provider Facility CPT-75854 Level 3 Est. Patient 18:25:53 CDT Mitch luis [facility] CPT-27569 Level 3 Est. Patient 19:43:34 CDT Mitch luis [facility] CPT-96226 Level 4 Est. Patient 09:30:18 CDT Mitch luis [facility] CPT-77975 Level 3 Est. Patient 15:10:14 CDT Joe kamara [facility] CPT-25243 Level 3 Est. Patient 15:03:46 CDT Joe kamara [facility] CPT-22003 Level 3 Est. Patient 14:21:06 CDT Mitch luis [facility] CPT-02619 Level 3 Est. Patient 14:52:06 CDT Joe kamara [facility] CPT-29711 Level 3 Est. Patient 09:34:30 CAMERA TUNING ENGINEER Mitch luis [facility] CPT-34822 Level 3 Est. Patient 09:37:15 CDT Mitch W L ee [facility] CPT-28967 Level 3 Est. Patient 17:01:00 CAMERA TUNING ENGINEER Mitch W L ee DO [facility] CPT-95262 Level 3 Est. Patient 13:53:19 CAMERA TUNING ENGINEER Mitch [facility] L ee [facility] CPT-97360 Level 3 Est. Patient 19:19:37 CAMERA TUNING ENGINEER Mitch W L ee [facility] CPT-51008 Level 3 Est. Patient 13:25:53 CAMERA TUNING ENGINEER Tavo toure MD [facility] CPT-26211 Level 3 Est. Patient 18:17:28 CDT Mitch W L ee [facility] CPT-10905 Level 3 Est. Patient 15:22:57 CDT Mitch W L ee [facility] CPT-22843 Level 3 Est. Patient 18:21:50 CDT Mitch W L ee [facility] CPT-31563 Level 3 Est. Patient 18:20:38 CDT Mitch W L ee [facility] CPT-81284 Level 3 Est. Patient 15:37:55 CDT Mitch W L ee [facility] CPT-56803 Level 2 Est. Patient 15:54:44 CDT Carmine benton MD [facility]-07972 Level 3 Est. Patient 21:46:01 CAMERA TUNING ENGINEER Mitch W L ee [facility] CPT-52129 Level 3 Est. Patient 22:15:50 CDT Mitch W L ee [facility] CPT-66291 Level 3 Est. Patient 10:48:15 CDT Mitch W L e[facility] CPT-41160 Level 3 Est. Patient 23:20:57 CDT Tavo toure MD [facility] CPT-88219 Level 3 Est. Patient 16:26:13 CDT Mitch W L [facility] Procedures Code Procedure Name Date Entry Date Standard Desc ription CPT-98238 Venipuncture Draw Fee 09:26:17 CDT CPT-54043 PT/INR - LAB USE ONLY 13:32:49 CAMERA TUNING ENGINEER CPT-01463 Venipuncture Draw Fee 13:32:49 CAMERA TUNING ENGINEER CPT-45801 PT/INR - LAB USE ONLY 10:34:49 CAMERA TUNING ENGINEER CPT-10160 Venipuncture Draw Fee 10:34:48 CAMERA TUNING ENGINEER CPT-20106 PT/INR - LAB USE ONLY 09:22:03 CAMERA TUNING ENGINEER CPT-35686 Venipuncture Draw Fee 09:22:02 CAMERA TUNING ENGINEER CPT-13271 Hemoccult IFOBT - LAB USE ONLY 10:27:22 CDT CPT-58583 Venipuncture Draw Fee 08:27:08 CDT CPT-40877 Liver Profile - LAB USE ONLY 08:27:07 CDT 2 CPT-68991 Microalbumin - LAB USE ONLY 08:27:07 CDT 20 25/05/09 CPT-53532 PT/INR - LAB USE ONLY 08:27:07 CDT CPT-87131 HGBA1C - LAB USE ONLY 08:27:07 CDT CPT-98737 CBC - LAB USE ONLY 08:27:07 CDT CPT-15171 Venipuncture Draw Fee 11:09:14 CDT CPT-53463 Venipuncture Draw Fee 08:32:21 CAMERA TUNING ENGINEER CPT-19343 Venipuncture Draw Fee 09:38:56 CAMERA TUNING ENGINEER CPT-54873 No Charge Offi Visit 21:36:07 CDT 1 CPT-49962 Venipuncture Draw Fee 10:13:28 CAMERA TUNING ENGINEER CPT-27725 Venipuncture Draw Fee 08:31:11 CDT CPT-73575 Aspir/Inject Med Joint 18:17:28 CDT CPT-53771 Venipuncture Draw Fee 10:13:30 CDT CPT-11397 Venipuncture Draw Fee 08:31:43 CAMERA TUNING ENGINEER CPT-JTINJ Joint Injection 18:34:50 CDT CPT-39924 Knee 3V 12:25:09 CDT CPT-00892 Venipuncture Draw Fee 12:15:57 CDT CPT-060 Medical Surveillance Exam 21:31:43 CDT 2011 CPT-11029 Venipuncture Draw Fee 08:32:05 CAMERA TUNING ENGINEER CPT-OV Office Visit 18:19:06 CDT
--- OUTSIDE RECORDS SUMMARY | 2020-01-18 12:33 | XMS REPORT | Clinical Summary ---
Author Author Admin, Mitch Leon Organization [facility] Address Unknown Phone Unavailable Allergies, Adverse [...] Coronary atherosclerosis of unspecified type of vessel, [place] or graft EDEMA 782.3 Active Mitch Urbina [...] 1/2 tab tid 3 days MECLIZINE HCL 74781032162 No Longer Active Corey SEGURA Active ALLOPURINOL 300 MG TABS Take 1 tablet by mouth daily 2 ALLOPURINOL 93590137018 No Longer Active Corey SEGURA Activ e CLONIDINE HCL 0.1 MG TABS 1 po bid 7 days, then 1/2 tab po b id 7 days CLONIDINE HCL 24316071035 No Longer Active Corey SEGURA Active COUMADIN 5 MG TABS 1 tab PO daily WARFARIN SODIUM 25778176141 Active Mitch Urbina DO Active COUMADIN 4 MG TABS 1 tablet daily WARFARIN SODI UM 35297058525 No Longer Active Corey SEGURA Active POLYTRIM 32203-8.1 UNIT/ML-% SOLN 1 drop in affected e ye every 3 hours while awake x 7 days POLYMYXIN B-TRIMETHOPRIM 48435387728 N o Longer Active Corey SEGURA Active LOSARTAN POTASSIUM-HCTZ 100-12.5 MG TABS 1 by mouth da rocky for high blood pressure LOSARTAN POTASSIUM-HCTZ 88093882139 Active Stephy Urbina DO Active LISINOPRIL-HYDROCHLOROTHIAZIDE 20-12.5 MG TABS 1 tab by mouth da rocky LISINOPRIL-HYDROCHLOROTHIAZIDE 66054636047 No Longer Active Mitch luis DO Active LISINOPRIL 20 MG TABS 1 tab po at HS LISINOPRIL 38300124769 No Longer Active Mitch Urbina DO Active COUMADIN 5 MG TABS 1 by mouth every other day WARFARIN SODIUM 80116558439 No Longer Active Mitch Urbina DO Active COUMADIN 6 MG TABS 1 by mouth every other day WARFARIN SODIUM 69125678052 No Longer Active Mitch Urbina DO Active COLCRYS 0.6 MG TABS 1 tab qid prn gout COLCHICINE 86084018042 Active Mitch Urbina DO Active SIMVASTATIN 40 MG TABS 1 tab daily at bedtime S IMVASTATIN 69024051464 Active Mitch Urbina DO Active SIMVASTATIN 20 MG TABS 1 tab daily at bedtime S IMVASTATIN 22598581403 No Longer Active Mitch Urbina DO Active LOVENOX 100 MG/ML SC SOLN One injection twice a day 09/15/15 ENOXAPARIN SODIUM 25808994000 No Longer Active Carmine Navarrete ctive JANUVIA 50 MG TABS Take one by mouth daily DIEGO GLIPTIN PHOSPHATE 29897835534 Active Mitch Urbina DO Active JANUVIA 100 MG TABS 1/2 by mouth every day DIEGO GLIPTIN PHOSPHATE 25068031919 No Longer Active Bijalseth Segal RN Active METFORMIN HCL 500 MG TABS 2 by mouth twice daily METFORMIN HCL 57395851470 Active Mitch Urbina DO Active GLIMEPIRIDE 4 MG TABS 1 tab po bid GLIMEPIRIDE 568129 81829 Active Mitch Urbina DO Active COLCRYS 0.6 MG TABS 1 po q 6 hours prn gout pain 03/02 COLCHICINE 98589579263 No Longer Active Camila Hugh Active LISINOPRIL 5 MG TABS 1 by mouth every day LISIN OPRIL 59046290593 No Longer Active Nguyenmolly Perez Active KLOR-CON 20 MEQ PACK Take one by mouth daily 8 POTASSIUM CHLORIDE 91999707446 No Longer Active Nguyenmolly Perez Active FUROSEMIDE 40 MG TABS 1 by mouth daily FUROSEMI DE 83003897206 No Longer Active Nguyen Perez Active PROVIGIL 200 MG TABS 1/2 tab po q day MODAFINIL 66316 417049 Active Mitch Urbina DO Active PROVIGIL 100 MG TABS Take one by mouth daily MO DAFINIL 65940203069 No Longer Active Mitch Urbina DO Active BACTRIM DS 800-160 MG TAB 1 tab by mouth twice daily 2 TRIMETHOPRIM-SULFAMETHOXAZOLE 23224641221 No Longer Active Renan Hays MD Active FAMOTIDINE 20 MG TABS by mouth twice a day FAMOTI DINE 57937340050 Active Mitch Urbina DO Active ADULT ASPIRIN LOW STRENGTH 81 MG TBDP 1 by mouth every daily ASPIRIN 46371228174 Active Mitch Urbina DO Active METOPROLOL TARTRATE 50 MG TABS 1 by mouth twice daily METOPROLOL TARTRATE 87235999239 Active Mitch Urbina DO Active BACTRIM DS 800-160 MG TAB 1 tab by mouth twice daily 2 BACTRIM DS 800-160 MG TAB TRIMETHOPRIM-SULFAMETHOXAZOLE Inac tive PROVIGIL 100 MG TABS Take one by mouth daily 4 PROVIGIL 100 MG TABS 808908 MODAFINIL Inactive FUROSEMIDE 40 MG TABS 1 by mouth daily FU ROSEMIDE 40 MG TABS 456729 FUROSEMIDE Inactive KLOR-CON 20 MEQ PACK Take one by mouth daily 8 KLOR-CON 20 MEQ PACK 495594 POTASSIUM CHLORIDE Inactive LISINOPRIL 5 MG TABS 1 by mouth every day LISINOPRIL 5 MG TABS 836354 LISINOPRIL Inactive COLCRYS 0.6 MG TABS 1 po q 6 hours prn gout pain 03/02 COLCRYS 0.6 MG TABS COLCHICINE Inactive JANUVIA 100 MG TABS 1/2 by mouth every day JANUVI A 100 MG TABS SITAGLIPTIN PHOSPHATE Inactive SIMVASTATIN 20 MG TABS 1 tab daily at bedtime SIMVASTATIN 20 MG TABS 259657 SIMVASTATIN Inactive COUMADIN 6 MG TABS 1 by mouth every other day COUMADIN 6 MG TABS 496323 WARFARIN SODIUM Inactive COUMADIN 5 MG TABS 1 by mouth every other day COUMADIN 5 MG TABS 256887 WARFARIN SODIUM Inactive LISINOPRIL 20 MG TABS 1 tab po at HS KOKI NOPRIL 20 MG TABS 421950 LISINOPRIL Inactive LISINOPRIL-HYDROCHLOROTHIAZIDE 20-12.5 MG TABS 1 tab by mouth da rocky LISINOPRIL-HYDROCHLOROTHIAZIDE 20-12.5 MG TABS 701922 LISINOPRIL-HYDROCHLOROTHIAZIDE Inactive POLYTRIM 44623-3.1 UNIT/ML-% SOLN 1 drop in affected e ye every 3 hours while awake x 7 days POLYTRIM 30959-1.1 UNIT/ML-% SOLN 72090 7 POLYMYXIN B-TRIMETHOPRIM Inactive COUMADIN 4 MG TABS 1 tablet daily COUMADIN 4 MG TABS 284230 WARFARIN SODIUM Inactive CLONIDINE HCL 0.1 MG TABS 1 po bid 7 days, then 1/2 tab po b id 7 days CLONIDINE HCL 0.1 MG TABS 371318 CLONIDINE HCL I nactive ALLOPURINOL 300 MG TABS Take 1 tablet by mouth daily 2 ALLOPURINOL 300 MG TABS 864031 ALLOPURINOL Inactive MECLIZINE HCL 25 MG TAB 1 po tid 3 days, then 1/2 tab tid 3 days MECLIZINE HCL 25 MG TAB 494144 MECLIZINE HCL Inactive LOVENOX 100 MG/ML SC SOLN One injection twice a day 09/15/15 LOVENOX 100 MG/ML SC SOLN 992034 ENOXAPARIN SODIUM Inactive Vital Signs Date Name [...] - 3141-9 234.44 [lb_av] Weigh t Measured blood pressure, diastolic - 8462-4 84 mm[Hg] BP mane blood pressure, systolic - 8480-6 192 mm[Hg] BP sys height E&M - 8302-2 70 [in_us] Bdy h eight pulse rate E&M - 8867-4 80 /min H eart rate temperature E&M 98.7 [degF] Body temp erature weight E&M - 3141-9 245 [lb_av] Weigh t Measured blood pressure, diastolic - 8462-4 80 mm[Hg] BP mane blood pressure, systolic - 8480-6 170 mm[Hg] BP sys height E&M - 8302-2 70 [in_us] Bdy h eight pulse rate E&M - 8867-4 82 /min H eart rate temperature E&M 99.9 [degF] Body temp erature weight E&M - 3141-9 254 [lb_av] Weigh t Measured blood pressure, diastolic - 8462-4 82 mm[Hg] BP mane blood pressure, systolic - 8480-6 158 mm[Hg] BP sys height E&M - 8302-2 70 [in_us] Bdy h eight pulse rate E&M - 8867-4 85 /min H eart rate temperature E&M 100.3 [degF] Body temp erature weight E&M - 3141-9 240.50 [lb_av] Weigh t Measured blood pressure, diastolic - 8462-4 80 mm[Hg] BP mane blood pressure, systolic - 8480-6 158 mm[Hg] BP sys height E&M - 8302-2 70 [in_us] Bdy h eight pulse rate E&M - 8867-4 87 /min H eart rate temperature E&M 98.6 [degF] Body temp erature weight E&M - 3141-9 237 [lb_av] Weigh t Measured Diagnostic Results Date Name Value Unit Range Description Append: Anticoagulation Management - Coa gulation international normalized ratio (INR) coagulation managed by Mitch Urbina DO international normalized ratio (INR) coagulation managed by Mitch Urbina international normalized ratio (INR) international normalized ratio (INR) coagulation managed by Mitch Urbina DO international normalized ratio (INR) coagulation managed by Mitch Urbina DO Lab Report: CBC, Comp. Metabolic Panel, HGBA1C, MICROALBUMIN, Uric Acid - Chemistry sodium, serum 136 mmol/L 802-354 4918/07/25 potassium, serum 4.6 mmol/L 3.5-5.2 chloride, serum [...] microalbumin, urine 30 0-19 Lab Report: CBC, HGBA1C, Lipid Panel - C hemistry hemoglobin A1C, blood, as % of total hemoglobin 6.9 % 4.3-6.0 cholesterol, serum 108 mg/dL 851-055 4128/11/01 triglyceride, serum, fasting 112 mg/dL 30-200 HDL cholesterol, serum 32 mg/dL 32-96 LDL cholesterol, serum 54 mg/dL 0-130 Lab Report: CBC, HGBA1C, Lipid Panel - H ematology leukocyte count, blood 7.0 10^3/MM^3 10*3/mm3 4.6-10.2 erythrocyte (RBC) count 3.33 10^6/MM^3 10*6/mm3 4.69-6.1 3 hemoglobin, blood 9.7 g/dL 13.5-17.5 hematocrit, blood 30.5 % 41.0-53.0 mean corpuscular volume, RBC 92 fL 80-97 mean corpuscular hemoglobin, RBC 29.2 pg 27. 0-31.2 mean corpuscular hemoglobin concentration, RBC 31.9 G/DL % 31.8-35.4 red blood cell distribution width 16.0 % 11 .6-14.8 platelet count 374 10^3/MM^3 10*3/mm3 142-424 Lab Report: Prothrombin Time - Coagulati on prothrombin time (patient) 15.6 SECS s 11.4-12.8 international normalized ratio (INR) 1.6 1.0-3.5 prothrombin time (patient) 17.8 SECS s 11.4-12.8 international normalized ratio (INR) 2.1 1.0-3.5 prothrombin time (patient) 18.4 SECS s 11.1-13.4 international normalized ratio (INR) 2.2 1.0-3.5 prothrombin time (patient) 16.8 SECS s 11.1-13.4 international normalized ratio (INR) 1.9 1.0-3.5 prothrombin time (patient) 19.9 SECS s 11.4-12.8 international normalized ratio (INR) 2.6 1.0-3.5 prothrombin time (patient) 18.4 SECS s 11.1-13.4 international normalized ratio (INR) 2.2 1.0-3.5 Encounters Code Encounter Date Provider Facility CPT-21341 Level 3 Est. 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 Patient 19:19:37 TOOL DIE MAKER Mitch luis [facility] CPT-86001 Level 3 Est. Patient 13:25:53 TOOL DIE MAKER Tavo toure MD [facility] CPT-03709 Level 3 Est. Patient 18:17:28 CDT Mitch luis [facility] CPT-51621 Level 3 Est. Patient 15:22:57 CDT Mitch luis [facility] CPT-88714 Level 3 Est. Patient 18:21:50 CDT Mitch luis [facility] CPT-65869 Level 3 Est. Patient 18:20:38 CDT Mitch luis [facility] CPT-84802 Level 3 Est. Patient 15:37:55 CDT Mitch luis [facility] CPT-21517 Level 2 Est. Patient 15:54:44 CDT Carmine benton MD [facility] CPT-96544 Level 3 Est. Patient 21:46:01 TOOL DIE MAKER Mitch luis [facility] CPT-97691 Level 3 Est. Patient 22:15:50 CDT Mitch luis [facility] CPT-78340 Level 3 Est. Patient 10:48:15 CDT Mitch luis [facility] CPT-40822 Level 3 Est. Patient 23:20:57 CDT Tavo toure MD [facility] CPT-07302 Level 3 Est. Patient 16:26:13 CDT Mitch luis [facility] Procedures Code Procedure Name Date Entry Date Standard Desc ription CPT-75725 Venipuncture Draw Fee 10:13:28 TOOL DIE MAKER CPT-76642 Venipuncture Draw Fee 08:31:11 CDT CPT-57112 Aspir/Inject Med Joint 18:17:28 CDT CPT-28136 Venipuncture Draw Fee 10:13:30 CDT CPT-91331 Venipuncture Draw Fee 08:31:43 TOOL DIE MAKER CPT-JTINJ Joint Injection 18:34:50 CDT CPT-49862 Knee 3V 12:25:09 CDT CPT-40128 Venipuncture Draw Fee 12:15:57 CDT CPT-060 Medical Surveillance Exam 21:31:43 CDT 2011 CPT-46264 Venipuncture Draw Fee 08:32:05 TOOL DIE MAKER CPT-OV Office Visit 18:19:06 CDT
--- OUTSIDE RECORDS SUMMARY | 2020-01-18 12:33 | XMS REPORT | Clinical Summary ---
[...] Coronary atherosclerosis of unspecified type of vessel, [place] or graft EDEMA 782.3 Active Mitch Urbina [...] 1/2 tab tid 3 days MECLIZINE HCL 52609993180 No Longer Active Corey SEGURA Active ALLOPURINOL 300 MG TABS Take 1 tablet by mouth daily 2 ALLOPURINOL 83183278435 No Longer Active Corey SEGURA Activ e CLONIDINE HCL 0.1 MG TABS 1 po bid 7 days, then 1/2 tab po b id 7 days CLONIDINE HCL 37814821191 No Longer Active Corey SEGURA Active COUMADIN 5 MG TABS 1 tab PO daily WARFARIN SODIUM 04602272185 Active Mitch Urbina DO Active COUMADIN 4 MG TABS 1 tablet daily WARFARIN SODI UM 25209618737 No Longer Active Corey SEGURA Active POLYTRIM 22067-9.1 UNIT/ML-% SOLN 1 drop in affected e ye every 3 hours while awake x 7 days POLYMYXIN B-TRIMETHOPRIM 05817909207 N o Longer Active Corey SEGURA Active LOSARTAN POTASSIUM-HCTZ 100-12.5 MG TABS 1 by mouth [place] for high blood pressure LOSARTAN POTASSIUM-HCTZ 60716149770 Active Stephy Urbina DO Active LISINOPRIL-HYDROCHLOROTHIAZIDE 20-12.5 MG TABS 1 tab by mouth da rocky LISINOPRIL-HYDROCHLOROTHIAZIDE 27507630259 No Longer Active Mitch luis DO Active LISINOPRIL 20 MG TABS 1 tab po at HS LISINOPRIL 94842375347 No Longer Active Mitch Urbina DO Active COUMADIN 5 MG TABS 1 by mouth every other day WARFARIN SODIUM 23953524935 No Longer Active Mitch Urbina DO Active COUMADIN 6 MG TABS 1 by mouth every other day WARFARIN SODIUM 20531805858 No Longer Active Mitch Urbina DO Active COLCRYS 0.6 MG TABS 1 tab qid prn gout COLCHICINE 69718991452 Active Mitch Urbina DO Active SIMVASTATIN 40 MG TABS 1 tab daily at bedtime S IMVASTATIN 32179086325 Active Mitch Urbina DO Active SIMVASTATIN 20 MG TABS 1 tab daily at bedtime S IMVASTATIN 84229406968 No Longer Active Mitch Urbina DO Active LOVENOX 100 MG/ML SC SOLN One injection twice a day 09/15/15 ENOXAPARIN SODIUM 96927104404 No Longer Active Carmine Navarrete ctive JANUVIA 50 MG TABS Take one by mouth daily DIEGO GLIPTIN PHOSPHATE 36896681076 Active Mitch Urbina DO Active JANUVIA 100 MG TABS 1/2 by mouth every day DIEGO GLIPTIN PHOSPHATE 04053037727 No Longer Active Bijalseth Segal RN Active METFORMIN HCL 500 MG TABS 2 by mouth twice daily METFORMIN HCL 88329600803 Active Mitch Urbina DO Active GLIMEPIRIDE 4 MG TABS 1 tab po bid GLIMEPIRIDE 208982 69359 Active Mitch Urbina DO Active COLCRYS 0.6 MG TABS 1 po q 6 hours prn gout pain 03/02 COLCHICINE 78429775189 No Longer Active Camila Hugh Active LISINOPRIL 5 MG TABS 1 by mouth every day LISIN OPRIL 05476060460 No Longer Active Nguyenmolly Perez Active KLOR-CON 20 MEQ PACK Take one by mouth daily 8 POTASSIUM CHLORIDE 23637801080 No Longer Active Nguyenmolly Perez Active FUROSEMIDE 40 MG TABS 1 by mouth daily FUROSEMI DE 98465307303 No Longer Active Nguyen Perez Active PROVIGIL 200 MG TABS 1/2 tab po q day MODAFINIL 63148 173074 Active Mitch Urbina DO Active PROVIGIL 100 MG TABS Take one by mouth daily MO DAFINIL 77783540408 No Longer Active Mitch Urbina DO Active BACTRIM DS 800-160 MG TAB 1 tab by mouth twice daily 2 TRIMETHOPRIM-SULFAMETHOXAZOLE 43544807184 No Longer Active Renan Hays MD Active FAMOTIDINE 20 MG TABS by mouth twice a day FAMOTI DINE 46878996121 Active Mitch Urbina DO Active ADULT ASPIRIN LOW STRENGTH 81 MG TBDP 1 by mouth every daily ASPIRIN 60835078797 Active Mitch Urbina DO Active METOPROLOL TARTRATE 50 MG TABS 1 by mouth twice daily METOPROLOL TARTRATE 47278141243 Active Mitch Urbina DO Active BACTRIM DS 800-160 MG TAB 1 tab by mouth twice daily 2 BACTRIM DS 800-160 MG TAB TRIMETHOPRIM-SULFAMETHOXAZOLE Inac tive PROVIGIL 100 MG TABS Take one by mouth daily 4 PROVIGIL 100 MG TABS 590464 MODAFINIL Inactive FUROSEMIDE 40 MG TABS 1 by mouth daily FU ROSEMIDE 40 MG TABS 055829 FUROSEMIDE Inactive KLOR-CON 20 MEQ PACK Take one by mouth daily 8 KLOR-CON 20 MEQ PACK 354095 POTASSIUM CHLORIDE Inactive LISINOPRIL 5 MG TABS 1 by mouth every day LISINOPRIL 5 MG TABS 851553 LISINOPRIL Inactive COLCRYS 0.6 MG TABS 1 po q 6 hours prn gout pain 03/02 COLCRYS 0.6 MG TABS COLCHICINE Inactive JANUVIA 100 MG TABS 1/2 by mouth every day JANUVI A 100 MG TABS SITAGLIPTIN PHOSPHATE Inactive SIMVASTATIN 20 MG TABS 1 tab daily at bedtime SIMVASTATIN 20 MG TABS 011122 SIMVASTATIN Inactive COUMADIN 6 MG TABS 1 by mouth every other day COUMADIN 6 MG TABS 250840 WARFARIN SODIUM Inactive COUMADIN 5 MG TABS 1 by mouth every other day COUMADIN 5 MG TABS 411894 WARFARIN SODIUM Inactive LISINOPRIL 20 MG TABS 1 tab po at HS KOKI NOPRIL 20 MG TABS 549360 LISINOPRIL Inactive LISINOPRIL-HYDROCHLOROTHIAZIDE 20-12.5 MG TABS 1 tab by mouth da rocky LISINOPRIL-HYDROCHLOROTHIAZIDE 20-12.5 MG TABS 198419 LISINOPRIL-HYDROCHLOROTHIAZIDE Inactive POLYTRIM 00055-5.1 UNIT/ML-% SOLN 1 drop in affected e ye every 3 hours while awake x 7 days POLYTRIM 25939-3.1 UNIT/ML-% SOLN 37487 7 POLYMYXIN B-TRIMETHOPRIM Inactive COUMADIN 4 MG TABS 1 tablet daily COUMADIN 4 MG TABS 188218 WARFARIN SODIUM Inactive CLONIDINE HCL 0.1 MG TABS 1 po bid 7 days, then 1/2 tab po b id 7 days CLONIDINE HCL 0.1 MG TABS 016775 CLONIDINE HCL I nactive ALLOPURINOL 300 MG TABS Take 1 tablet by mouth daily 2 ALLOPURINOL 300 MG TABS 103563 ALLOPURINOL Inactive MECLIZINE HCL 25 MG TAB 1 po tid 3 days, then 1/2 tab tid 3 days MECLIZINE HCL 25 MG TAB 227700 MECLIZINE HCL Inactive LOVENOX 100 MG/ML SC SOLN One injection twice a day 09/15/15 LOVENOX 100 MG/ML SC SOLN 148894 ENOXAPARIN SODIUM Inactive Vital Signs Date Name [...] by Mitch Urbina international normalized ratio (INR) coagulation managed by Mitch Urbina DO international normalized ratio (INR) coagulation managed by Mitch Urbina DO international normalized ratio (INR) international normalized ratio (INR) Lab Report: CBC, Comp. Metabolic Panel, HGBA1C, MICROALBUMIN, Uric Acid - Chemistry albumin/creatinine ratio, urine < 30 mg/g mg/g{creat} 0-2 9 uric acid, serum 10.3 mg/dL 2.6-7.2 sodium, serum 136 mmol/L 034-078 4016/07/25 potassium, serum 4.6 mmol/L 3.5-5.2 chloride, serum [...] 6.9 % 4.3-6.0 cholesterol, serum 108 mg/dL 551-787 8363/11/01 triglyceride, serum, fasting 112 mg/dL 30-200 HDL [...] on prothrombin time (patient) 17.8 SECS s 11.4-12.8 international normalized ratio (INR) 2.1 1.0-3.5 international normalized ratio (INR) 2.2 1.0-3.5 prothrombin time (patient) 18.4 SECS s 11.1-13.4 prothrombin time (patient) 16.8 SECS s 11.1-13.4 international normalized ratio (INR) 1.9 1.0-3.5 prothrombin time (patient) 19.9 SECS s 11.4-12.8 international normalized ratio (INR) 2.6 1.0-3.5 prothrombin time (patient) 18.4 SECS s 11.1-13.4 international normalized ratio (INR) 2.2 1.0-3.5 international normalized ratio (INR) 1.6 1.0-3.5 prothrombin time (patient) 15.6 SECS s 11.4-12.8 Encounters Code Encounter Date Provider Facility CPT-18605 Level 3 Est. Patient 13:53:19 ELECTRIC SPOT WELDER Mitch luis [facility] CPT-40147 Level 3 Est. Patient 19:19:37 ELECTRIC SPOT WELDER Mitch luis [facility] CPT-52392 Level 3 Est. Patient 13:25:53 ELECTRIC SPOT WELDER Tavo toure MD [facility] CPT-24691 Level 3 Est. Patient 18:17:28 CDT Mitch luis [facility] CPT-56272 Level 3 Est. Patient 15:22:57 CDT Mitch luis [facility] CPT-11611 Level 3 Est. Patient 18:21:50 CDT Mitch luis [facility] CPT-00202 Level 3 Est. Patient 18:20:38 CDT Mitch luis [facility] CPT-36660 Level 3 Est. Patient 15:37:55 CDT Mitch luis [facility] CPT-31410 Level 2 Est. Patient 15:54:44 CDT Carmine benton MD [facility] CPT-15133 Level 3 Est. Patient 21:46:01 ELECTRIC SPOT WELDER Mitch luis [facility] CPT-50102 Level 3 Est. Patient 22:15:50 CDT Mitch luis [facility] CPT-89391 Level 3 Est. Patient 10:48:15 CDT Mitch luis [facility] CPT-60332 Level 3 Est. Patient 23:20:57 CDT Tavo toure MD [facility] CPT-63944 Level 3 Est. Patient 16:26:13 CDT Mitch luis [facility] Procedures Code Procedure Name Date Entry Date Standard Desc ription CPT-36286 Venipuncture Draw Fee 10:13:28 ELECTRIC SPOT W[employer]DER CPT-26469 Venipuncture Draw Fee 08:31:11 CDT CPT-49066 Aspir/Inject Med Joint 18:17:28 CDT CPT-20662 Venipuncture Draw Fee 10:13:30 CDT CPT-23010 Venipuncture Draw Fee 08:31:43 ELECTRIC SPOT WELDER CPT-JTINJ Joint Injection 18:34:50 CDT CPT-54588 Knee 3V 12:25:09 CDT CPT-11188 Venipuncture Draw Fee 12:15:57 CDT CPT-060 Medical Surveillance Exam 21:31:43 CDT 2011 CPT-82847 Venipuncture Draw Fee 08:32:05 ELECTRIC SPOT WELDER CPT-OV Office Visit 18:19:06 CDT
--- OUTSIDE RECORDS SUMMARY | 2020-01-18 12:33 | XMS REPORT | Clinical Summary ---
Author Author Admin, Mitch Leon Organization [facility] Address Unknown Phone Unavailable Allergies, Adverse [...] of vessel, [place] or graft EDEMA 782.3 Active Mitch Urbina [...] 1 tablet by mouth daily AMLODIPINE BESYLATE 48034353419 Active Mitch Urbina DO Active MECLIZINE HCL 25 MG TAB 1 po tid 3 days, then 1/2 tab tid 3 days MECLIZINE HCL 35713923878 No Longer Active Corey SEGURA Active ALLOPURINOL 300 MG TABS Take 1 tablet by mouth daily 2 ALLOPURINOL 96571566746 No Longer Active Corey SEGURA Activ e CLONIDINE HCL 0.1 MG TABS 1 po bid 7 days, then 1/2 tab po b id 7 days CLONIDINE HCL 51677827854 No Longer Active Corey SEGURA Active COUMADIN 5 MG TABS 1 tab PO daily WARFARIN SODIUM 11449289959 Active Mitch Urbina DO Active COUMADIN 4 MG TABS 1 tablet daily WARFARIN SODI UM 36308560161 No Longer Active Corey SEGURA Active POLYTRIM 84904-7.1 UNIT/ML-% SOLN 1 drop in affected e ye every 3 hours while awake x 7 days POLYMYXIN B-TRIMETHOPRIM 52114619053 N o Longer Active Corey SEGURA Active LOSARTAN POTASSIUM-HCTZ 100-12.5 MG TABS 1 by mouth da rocky for high blood pressure LOSARTAN POTASSIUM-HCTZ 19878911494 Active Stephy Urbina DO Active LISINOPRIL-HYDROCHLOROTHIAZIDE 20-12.5 MG TABS 1 tab by mouth da rocky LISINOPRIL-HYDROCHLOROTHIAZIDE 46737436421 No Longer Active Mitch luis DO Active LISINOPRIL 20 MG TABS 1 tab po at HS LISINOPRIL 47475452494 No Longer Active Mitch Urbina DO Active COUMADIN 5 MG TABS 1 by mouth every other day WARFARIN SODIUM 75831939364 No Longer Active Mitch Urbina DO Active COUMADIN 6 MG TABS 1 by mouth every other day WARFARIN SODIUM 28859921148 No Longer Active Mitch Urbina DO Active COLCRYS 0.6 MG TABS 1 tab qid prn gout COLCHICINE 71809829035 Active Corey SEGURA Active SIMVASTATIN 40 MG TABS 1 tab daily at bedtime S IMVASTATIN 69189992523 Active Mitch Urbina DO Active SIMVASTATIN 20 MG TABS 1 tab daily at bedtime S IMVASTATIN 27909600681 No Longer Active Mitch Urbina DO Active LOVENOX 100 MG/ML SC SOLN One injection twice a day 09/15/15 ENOXAPARIN SODIUM 99148829060 No Longer Active Carmine D [place] MD A ctive JANUVIA 50 MG TABS Take one by mouth daily DIEGO GLIPTIN PHOSPHATE 94094773173 Active Mitch Urbina DO Active JANUVIA 100 MG TABS 1/2 by mouth every day DIEGO GLIPTIN PHOSPHATE 37540765360 No Longer Active Bijalseth Segal RN Active METFORMIN HCL 500 MG TABS 2 by mouth twice daily METFORMIN HCL 76282824627 Active Corey Arias PA Active GLIMEPIRIDE 4 MG TABS 1 tab po bid GLIMEPIRIDE 663600 94145 Active Mitch Urbina DO Active COLCRYS 0.6 MG TABS 1 po q 6 hours prn gout pain 03/02 COLCHICINE 13727536363 No Longer Active Camila Reese Active LISINOPRIL 5 MG TABS 1 by mouth every day LISIN OPRIL 42412210396 No Longer Active Nguyen Perez Active KLOR-CON 20 MEQ PACK Take one by mouth daily 8 POTASSIUM CHLORIDE 00934407682 No Longer Active Nguyen Perez Active FUROSEMIDE 40 MG TABS 1 by mouth daily FUROSEMI DE 53574550987 No Longer Active Nguyen Perez Active PROVIGIL 200 MG TABS 1/2 tab po q day MODAFINIL 47521 029957 Active Mitch Urbina DO Active PROVIGIL 100 MG TABS Take one by mouth daily MO DAFINIL 86424365588 No Longer Active Mitch Urbina DO Active BACTRIM DS 800-160 MG TAB 1 tab by mouth twice daily 2 TRIMETHOPRIM-SULFAMETHOXAZOLE 56096693825 No Longer Active Renan Hays MD Active FAMOTIDINE 20 MG TABS by mouth twice a day FAMOTI DINE 60903700287 Active Mitch Urbina DO Active ADULT ASPIRIN LOW STRENGTH 81 MG TBDP 1 by mouth every daily ASPIRIN 40629904207 Active Mitch Urbina DO Active METOPROLOL TARTRATE 50 MG TABS 1 by mouth twice daily METOPROLOL TARTRATE 82236401639 Active Curly Coker MD Active BACTRIM DS 800-160 MG TAB 1 tab by mouth twice daily 2 BACTRIM DS 800-160 MG TAB TRIMETHOPRIM-SULFAMETHOXAZOLE Inac tive PROVIGIL 100 MG TABS Take one by mouth daily 4 PROVIGIL 100 MG TABS 551336 MODAFINIL Inactive FUROSEMIDE 40 MG TABS 1 by mouth daily FU ROSEMIDE 40 MG TABS 856725 FUROSEMIDE Inactive KLOR-CON 20 MEQ PACK Take one by mouth daily 8 KLOR-CON 20 MEQ PACK 998201 POTASSIUM CHLORIDE Inactive LISINOPRIL 5 MG TABS 1 by mouth every day LISINOPRIL 5 MG TABS 210061 LISINOPRIL Inactive COLCRYS 0.6 MG TABS 1 po q 6 hours prn gout pain 03/02 COLCRYS 0.6 MG TABS COLCHICINE Inactive JANUVIA 100 MG TABS 1/2 by mouth every day JANUVI A 100 MG TABS SITAGLIPTIN PHOSPHATE Inactive SIMVASTATIN 20 MG TABS 1 tab daily at bedtime SIMVASTATIN 20 MG TABS 725061 SIMVASTATIN Inactive COUMADIN 6 MG TABS 1 by mouth every other day COUMADIN 6 MG TABS 478201 WARFARIN SODIUM Inactive COUMADIN 5 MG TABS 1 by mouth every other day COUMADIN 5 MG TABS 260177 WARFARIN SODIUM Inactive LISINOPRIL 20 MG TABS 1 tab po at HS KOKI NOPRIL 20 MG TABS 980964 LISINOPRIL Inactive LISINOPRIL-HYDROCHLOROTHIAZIDE 20-12.5 MG TABS 1 tab by mouth da rocky LISINOPRIL-HYDROCHLOROTHIAZIDE 20-12.5 MG TABS 728167 LISINOPRIL-HYDROCHLOROTHIAZIDE Inactive POLYTRIM 97109-2.1 UNIT/ML-% SOLN 1 drop in affected e ye every 3 hours while awake x 7 days POLYTRIM 47434-1.1 UNIT/ML-% SOLN 92681 7 POLYMYXIN B-TRIMETHOPRIM Inactive COUMADIN 4 MG TABS 1 tablet daily COUMADIN 4 MG TABS 337196 WARFARIN SODIUM Inactive CLONIDINE HCL 0.1 MG TABS 1 po bid 7 days, then 1/2 tab po b id 7 days CLONIDINE HCL 0.1 MG TABS 250338 CLONIDINE HCL I nactive ALLOPURINOL 300 MG TABS Take 1 tablet by mouth daily 2 ALLOPURINOL 300 MG TABS 527032 ALLOPURINOL Inactive MECLIZINE HCL 25 MG TAB 1 po tid 3 days, then 1/2 tab tid 3 days MECLIZINE HCL 25 MG TAB 726058 MECLIZINE HCL Inactive LOVENOX 100 MG/ML SC SOLN One injection twice a day 09/15/15 LOVENOX 100 MG/ML SC SOLN 820808 ENOXAPARIN SODIUM Inactive Vital Signs Date Name [...] Acid - Chemistry sodium, serum 136 mmol/L 480-022 7182/07/25 potassium, serum 4.6 mmol/L 3.5-5.2 chloride, serum [...] Panel - Chemistry sodium, serum 137 mmol/L 107-285 1973/11/14 potassium, serum 4.4 mmol/L 3.5-5.2 chloride, serum [...] 8.0 % 4.3-6.0 cholesterol, serum 130 mg/dL 723-586 2169/11/14 triglyceride, serum, fasting 288 mg/dL 30-200 HDL cholesterol, serum 33 mg/dL 32-96 LDL cholesterol, serum 39 mg/dL 0-130 Lab Report: Comp. Metabolic Panel, HGBA1 C, Lipid Panel, Prothrombin Time - Chemistry HDL cholesterol, serum 30 mg/dL 32-96 LDL cholesterol, serum 42 mg/dL 0-130 sodium, serum 136 mmol/L 464-205 4811/12/02 potassium, serum 4.4 mmol/L 3.5-5.2 chloride, serum [...] 7.6 % 4.3-6.0 cholesterol, serum 117 mg/dL 919-371 1684/12/02 triglyceride, serum, fasting 226 mg/dL 30-200 Lab [...] (INR) 2.6 1.0-3.5 international normalized ratio (INR) 1.7 1.0-3.5 prothrombin time (patient) 16.0 SECS s 11.1-13.4 prothrombin time (patient) 19.9 SECS s 11.1-13.4 international normalized ratio (INR) 2.6 1.0-3.5 Encounters Code Encounter Date Provider Facility CPT-05320 Level 3 Est. 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 Patient 13:53:19 SLEEPING BAG FILLER Mitch luis [facility] CPT-85291 Level 3 Est. Patient 19:19:37 SLEEPING BAG FILLER Mitch luis [facility] CPT-36056 Level 3 Est. Patient 13:25:53 SLEEPING BAG FILLER Tavo toure MD [facility] CPT-10229 Level 3 Est. Patient 18:17:28 CDT Mitch luis [facility] CPT-47911 Level 3 Est. Patient 15:22:57 CDT Mitch luis [facility] CPT-54292 Level 3 Est. Patient 18:21:50 CDT Mitch luis [facility] CPT-76286 Level 3 Est. Patient 18:20:38 CDT Mitch luis [facility] CPT-08551 Level 3 Est. Patient 15:37:55 CDT Mitch Ambrose L ee [facility] CPT-22786 Level 2 Est. Patient 15:54:44 CDT Carmine benton MD [facility] CPT-74036 Level 3 Est. Patient 21:46:01 SLEEPING BAG FILLER Mitch luis [facility] CPT-58515 Level 3 Est. Patient 22:15:50 CDT Mitch Arnol luis [facility] CPT-32929 Level 3 Est. Patient 10:48:15 CDT Mitch Arnol luis [facility] CPT-96784 Level 3 Est. Patient 23:20:57 CDT Tavo toure MD [facility] CPT-29007 Level 3 Est. Patient 16:26:13 CDT Mitch Castellano janelle [facility] Procedures Code Procedure Name Date Entry Date Standard Desc ription CPT-65319 Venipuncture Draw Fee 10:13:28 SLEEPING BAG FILLER CPT-84138 Venipuncture Draw Fee 08:31:11 CDT CPT-59189 Aspir/Inject Med Joint 18:17:28 CDT CPT-70427 Venipuncture Draw Fee 10:13:30 CDT CPT-19442 Venipuncture Draw Fee 08:31:43 SLEEPING BAG FILLER CPT-JTINJ Joint Injection 18:34:50 CDT CPT-22868 Knee 3V 12:25:09 CDT CPT-90068 Venipuncture Draw Fee 12:15:57 CDT CPT-060 Medical Surveillance Exam 21:31:43 CDT 2011 CPT-71258 Venipuncture Draw Fee 08:32:05 SLEEPING BAG FILLER CPT-OV Office Visit 18:19:06 CDT
--- OUTSIDE RECORDS SUMMARY | 2020-01-18 12:33 | XMS REPORT | Clinical Summary ---
Author Author Admin, Mitch Leon Organization [facility] Address Unknown Phone Unavailable Allergies, [...] (CURRENT) USE OF ANTICOAGULANTS V58.61 Activ e EGRALD Shrestha Long-term (current) use of anticoagulant s HEALTH MAINTENANCE EXAM V70.0 Active Mitch Meraz DO Routine general medical examination at a health care facility CORONARY HEART DISEASE 414.00 Active Mitch Urbina DO Coronary atherosclerosis of unspecified type of vessel, [place] or graft EDEMA 782.3 Active Mitch Urbina [...] 1 tablet by mouth daily AMLODIPINE BESYLATE 03882938226 Active Mitch Urbina DO Active MECLIZINE HCL 25 MG TAB 1 po tid 3 days, then 1/2 tab tid 3 days MECLIZINE HCL 41751368566 No Longer Active Corey SEGURA Active ALLOPURINOL 300 MG TABS Take 1 tablet by mouth daily 2 ALLOPURINOL 90705626112 No Longer Active Corey SEGURA Activ e CLONIDINE HCL 0.1 MG TABS 1 po bid 7 days, then 1/2 tab po b id 7 days CLONIDINE HCL 38957879360 No Longer Active Corey SEGURA Active COUMADIN 5 MG TABS 1 tab PO daily WARFARIN SODIUM 02125915974 Active Mitch Urbina DO Active COUMADIN 4 MG TABS 1 tablet daily WARFARIN SODI UM 24218617562 No Longer Active Corey SEGURA Active POLYTRIM 47108-7.1 UNIT/ML-% SOLN 1 drop in affected e ye every 3 hours while awake x 7 days POLYMYXIN B-TRIMETHOPRIM 03591484500 N o Longer Active Corey SEGURA Active LOSARTAN POTASSIUM-HCTZ 100-12.5 MG TABS 1 by mouth [place] for high blood pressure LOSARTAN POTASSIUM-HCTZ 32571987174 Active Stephy Urbina DO Active LISINOPRIL-HYDROCHLOROTHIAZIDE 20-12.5 MG TABS 1 tab by mouth da rocky LISINOPRIL-HYDROCHLOROTHIAZIDE 89250434578 No Longer Active Mitch luis DO Active LISINOPRIL 20 MG TABS 1 tab po at HS LISINOPRIL 66076620164 No Longer Active Mitch Urbina DO Active COUMADIN 5 MG TABS 1 by mouth every other day WARFARIN SODIUM 64794477095 No Longer Active Mitch Urbina DO Active COUMADIN 6 MG TABS 1 by mouth every other day WARFARIN SODIUM 91898381632 No Longer Active Mitch Urbina DO Active COLCRYS 0.6 MG TABS 1 tab qid prn gout COLCHICINE 90272406015 Active Mitch Urbina DO Active SIMVASTATIN 40 MG TABS 1 tab daily at bedtime S IMVASTATIN 18691849930 Active Mitch Urbina DO Active SIMVASTATIN 20 MG TABS 1 tab daily at bedtime S IMVASTATIN 95806686129 No Longer Active Mitch Urbina DO Active LOVENOX 100 MG/ML SC SOLN One injection twice a day 09/15/15 ENOXAPARIN SODIUM 47287366333 No Longer Active Carmine Navarrete ctive JANUVIA 50 MG TABS Take one by mouth daily DIEGO GLIPTIN PHOSPHATE 49590903425 Active Mitch Urbina DO Active JANUVIA 100 MG TABS 1/2 by mouth every day DIEGO GLIPTIN PHOSPHATE 34122881512 No Longer Active Bijal Philipp RN Active METFORMIN HCL 500 MG TABS 2 by mouth twice daily METFORMIN HCL 69497574361 Active Mitch Urbina DO Active GLIMEPIRIDE 4 MG TABS 1 tab po bid GLIMEPIRIDE 255824 83221 Active Mitch Urbina DO Active COLCRYS 0.6 MG TABS 1 po q 6 hours prn gout pain 03/02 COLCHICINE 48468225067 No Longer Active Camila Reese Active LISINOPRIL 5 MG TABS 1 by mouth every day LISIN OPRIL 98887182070 No Longer Active Nguyenmolly Perez Active KLOR-CON 20 MEQ PACK Take one by mouth daily 8 POTASSIUM CHLORIDE 86803096218 No Longer Active Nguyen Perez Active FUROSEMIDE 40 MG TABS 1 by mouth daily FUROSEMI DE 86690491980 No Longer Active Nguyen Perez Active PROVIGIL 200 MG TABS 1/2 tab po q day MODAFINIL 78795 616347 Active Mitch Urbina DO Active PROVIGIL 100 MG TABS Take one by mouth daily MO DAFINIL 50029638128 No Longer Active Mitch Urbina DO Active BACTRIM DS 800-160 MG TAB 1 tab by mouth twice daily 2 TRIMETHOPRIM-SULFAMETHOXAZOLE 95397742214 No Longer Active Renan Hays MD Active FAMOTIDINE 20 MG TABS by mouth twice a day FAMOTI DINE 61309785460 Active Mitch Urbina DO Active ADULT ASPIRIN LOW STRENGTH 81 MG TBDP 1 by mouth every daily ASPIRIN 35683739725 Active Mitch Urbina DO Active METOPROLOL TARTRATE 50 MG TABS 1 by mouth twice daily METOPROLOL TARTRATE 59283448923 Active Mitch W [place] DO Active BACTRIM DS 800-160 MG TAB 1 tab by mouth twice daily 2 BACTRIM DS 800-160 MG TAB TRIMETHOPRIM-SULFAMETHOXAZOLE Inac tive PROVIGIL 100 MG TABS Take one by mouth daily 4 PROVIGIL 100 MG TABS 618733 MODAFINIL Inactive FUROSEMIDE 40 MG TABS 1 by mouth daily FU ROSEMIDE 40 MG TABS 460951 FUROSEMIDE Inactive KLOR-CON 20 MEQ PACK Take one by mouth daily 8 KLOR-CON 20 MEQ PACK 962668 POTASSIUM CHLORIDE Inactive LISINOPRIL 5 MG TABS 1 by mouth every day LISINOPRIL 5 MG TABS 927326 LISINOPRIL Inactive COLCRYS 0.6 MG TABS 1 po q 6 hours prn gout pain 03/02 COLCRYS 0.6 MG TABS COLCHICINE Inactive JANUVIA 100 MG TABS 1/2 by mouth every day JANUVI A 100 MG TABS SITAGLIPTIN PHOSPHATE Inactive SIMVASTATIN 20 MG TABS 1 tab daily at bedtime SIMVASTATIN 20 MG TABS 588099 SIMVASTATIN Inactive COUMADIN 6 MG TABS 1 by mouth every other day COUMADIN 6 MG TABS 696982 WARFARIN SODIUM Inactive COUMADIN 5 MG TABS 1 by mouth every other day COUMADIN 5 MG TABS 643369 WARFARIN SODIUM Inactive LISINOPRIL 20 MG TABS 1 tab po at HS KOKI NOPRIL 20 MG TABS 954650 LISINOPRIL Inactive LISINOPRIL-HYDROCHLOROTHIAZIDE 20-12.5 MG TABS 1 tab by mouth da rocky LISINOPRIL-HYDROCHLOROTHIAZIDE 20-12.5 MG TABS 750347 LISINOPRIL-HYDROCHLOROTHIAZIDE Inactive POLYTRIM 80411-8.1 UNIT/ML-% SOLN 1 drop in affected e ye every 3 hours while awake x 7 days POLYTRIM 67898-3.1 UNIT/ML-% SOLN 72655 7 POLYMYXIN B-TRIMETHOPRIM Inactive COUMADIN 4 MG TABS 1 tablet daily COUMADIN 4 MG TABS 559294 WARFARIN SODIUM Inactive CLONIDINE HCL 0.1 MG TABS 1 po bid 7 days, then 1/2 tab po b id 7 days CLONIDINE HCL 0.1 MG TABS 538177 CLONIDINE HCL I nactive ALLOPURINOL 300 MG TABS Take 1 tablet by mouth daily 2 ALLOPURINOL 300 MG TABS 440098 ALLOPURINOL Inactive MECLIZINE HCL 25 MG TAB 1 po tid 3 days, then 1/2 tab tid 3 days MECLIZINE HCL 25 MG TAB 782090 MECLIZINE HCL Inactive LOVENOX 100 MG/ML SC SOLN One injection twice a day 09/15/15 LOVENOX 100 MG/ML SC SOLN 128926 ENOXAPARIN SODIUM Inactive Vital Signs Date Name [...] 10.3 mg/dL 2.6-7.2 sodium, serum 136 mmol/L 671-319 9492/07/25 potassium, serum 4.6 mmol/L 3.5-5.2 chloride, serum [...] Panel - Chemistry sodium, serum 137 mmol/L 625-823 8561/11/14 potassium, serum 4.4 mmol/L 3.5-5.2 chloride, serum [...] 8.0 % 4.3-6.0 cholesterol, serum 130 mg/dL 436-494 4237/11/14 triglyceride, serum, fasting 288 mg/dL 30-200 HDL cholesterol, serum 33 mg/dL 32-96 LDL cholesterol, serum 39 mg/dL 0-130 Lab Report: Comp. Metabolic Panel, HGBA1 C, Lipid Panel, Prothrombin Time - Chemistry sodium, serum 136 mmol/L 914-291 6319/12/02 potassium, serum 4.4 mmol/L 3.5-5.2 chloride, serum [...] 7.6 % 4.3-6.0 cholesterol, serum 117 mg/dL 715-840 5748/12/02 triglyceride, serum, fasting 226 mg/dL 30-200 HDL [...] 1.0-3.5 Encounters Code Encounter Date Provider Facility CPT-65461 Level 3 Est. 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 Patient 13:53:19 NETWORK CABLER Mitch Ambrose L ee [facility] CPT-61401 Level 3 Est. Patient 19:19:37 NETWORK CABLER Mitch W L ee [facility] CPT-15008 Level 3 Est. Patient 13:25:53 NETWORK CABLER Tavo toure MD [facility]-20192 Level 3 Est. Patient 18:17:28 CDT Mitch W L ee [facility] CPT-76561 Level 3 Est. Patient 15:22:57 CDT Mitch W L ee [facility] CPT-79805 Level 3 Est. Patient 18:21:50 CDT Mitch W L ee [facility] CPT-63747 Level 3 Est. Patient 18:20:38 CDT Mitch W L janelle [facility] CPT-53558 Level 3 Est. Patient 15:37:55 CDT Mitch W L ee [facility] CPT-07241 Level 2 Est. Patient 15:54:44 CDT Carmine benton MD [facility]-19923 Level 3 Est. Patient 21:46:01 NETWORK CABLER Mitch W L ee [facility] CPT-10745 Level 3 Est. Patient 22:15:50 CDT Mitch W L janelle [facility] CPT-46730 Level 3 Est. Patient 10:48:15 CDT Mitch W L ee [facility] CPT-41883 Level 3 Est. Patient 23:20:57 CDT Tavo toure MD [facility] CPT-32321 Level 3 Est. Patient 16:26:13 CDT Mitch luis [facility] Procedures Code Procedure Name Date Entry Date Standard Desc ription CPT-90771 Venipuncture Draw Fee 10:13:28 NETWORK CABLER CPT-08913 Venipuncture Draw Fee 08:31:11 CDT CPT-49177 Aspir/Inject Med Joint 18:17:28 CDT CPT-04221 Venipuncture Draw Fee 10:13:30 CDT CPT-03651 Venipuncture Draw Fee 08:31:43 NETWORK CABLER CPT-JTINJ Joint Injection 18:34:50 CDT CPT-98206 Knee 3V 12:25:09 CDT CPT-19404 Venipuncture Draw Fee 12:15:57 CDT CPT-060 Medical Surveillance Exam 21:31:43 CDT 2011 CPT-64428 Venipuncture Draw Fee 08:32:05 NETWORK CABLER CPT-OV Office Visit 18:19:06 CDT
--- OUTSIDE RECORDS SUMMARY | 2020-01-18 12:33 | XMS REPORT | Clinical Summary ---
Author Author Admin, Mitch Leon Organization [facility] Address Unknown Phone Allergies, Adverse Reactions, Alerts Allergy Name Reaction [...] (CURRENT) USE OF ANTICOAGULANTS V58.61 Activ e Karissa Trejo Long-term (current) use of anticoagulant s HEALTH MAINTENANCE EXAM V70.0 Active Mitch Meraz DO Routine general medical examination at a health care facility CORONARY HEART DISEASE 414.00 Active Mitch Urbina DO Coronary atherosclerosis of unspecified type of vessel, [place] or graft EDEMA 782.3 Active Mitch Kilpatrick ma DEGENERATIVE JOINT DISEASE, KNEES, 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 [...] Olecranon bursitis UNSPECIFIED ANEMIA 285.9 Active Blessing Faux Anemia, unspecified Malaise and fatigue 780.79 Active Blessing Faux Other malaise and fatigue Cough, chronic 786.2 [...] 1/2 tab tid 3 days MECLIZINE HCL 04861956728 No Longer Active Corey SEGURA Active ALLOPURINOL 300 MG TABS Take 1 tablet by mouth daily 2 ALLOPURINOL 27956632072 No Longer Active Corey SEGURA Activ e CLONIDINE HCL 0.1 MG TABS 1 po bid 7 days, then 1/2 tab po b id 7 days CLONIDINE HCL 03816828089 No Longer Active Corey SEGURA Active COUMADIN 5 MG TABS 1 tab PO daily WARFARIN SODIUM 56591475219 Active Mitch Urbina DO Active COUMADIN 4 MG TABS 1 tablet daily WARFARIN SODI UM 09151496185 No Longer Active Corey SEGURA Active POLYTRIM 47145-9.1 UNIT/ML-% SOLN 1 drop in affected e ye every 3 hours while awake x 7 days POLYMYXIN B-TRIMETHOPRIM 02034729423 N o Longer Active Corey SEGURA Active LOSARTAN POTASSIUM-HCTZ 100-12.5 MG TABS 1 by mouth da rocky for high blood pressure LOSARTAN POTASSIUM-HCTZ 32062391938 Active Stephy Urbina DO Active LISINOPRIL-HYDROCHLOROTHIAZIDE 20-12.5 MG TABS 1 tab by mouth da rocky LISINOPRIL-HYDROCHLOROTHIAZIDE 85878884910 No Longer Active Mitch luis DO Active LISINOPRIL 20 MG TABS 1 tab po at HS LISINOPRIL 90522395315 No Longer Active Mitch Urbina DO Active COUMADIN 5 MG TABS 1 by mouth every other day WARFARIN SODIUM 80270534636 No Longer Active Mitch Urbina DO Active COUMADIN 6 MG TABS 1 by mouth every other day WARFARIN SODIUM 51393178066 No Longer Active Mitch Urbina DO Active COLCRYS 0.6 MG TABS 1 tab qid prn gout COLCHICINE 64499178073 Active Mitch Urbina DO Active SIMVASTATIN 40 MG TABS 1 tab daily at bedtime S IMVASTATIN 02753734201 Active Mitch Urbina DO Active SIMVASTATIN 20 MG TABS 1 tab daily at bedtime S IMVASTATIN 75801612607 No Longer Active Mitch Urbina DO Active LOVENOX 100 MG/ML SC SOLN One injection twice a day 09/15/15 ENOXAPARIN SODIUM 11849505860 No Longer Active Carmine Navarrete ctive JANUVIA 50 MG TABS Take one by mouth daily DIEGO GLIPTIN PHOSPHATE 03865080805 Active Mitch Urbina DO Active JANUVIA 100 MG TABS 1/2 by mouth every day DIEGO GLIPTIN PHOSPHATE 50361179305 No Longer Active Bijal Philipp RN Active METFORMIN HCL 500 MG TABS 2 by mouth twice daily METFORMIN HCL 99059132918 Active Curly Coker MD Active GLIMEPIRIDE 4 MG TABS 1 tab po bid GLIMEPIRIDE 639790 15432 Active Mitch Urbina DO Active COLCRYS 0.6 MG TABS 1 po q 6 hours prn gout pain 03/02 COLCHICINE 84851003215 No Longer Active Camila [place] Active LISINOPRIL 5 MG TABS 1 by mouth every day LISIN OPRIL 48448370543 No Longer Active Nguyenmolly Preez Active KLOR-CON 20 MEQ PACK Take one by mouth daily POTASSIUM CHLORIDE 79450194673 No Longer Active Nguyenmolly Perez Active FUROSEMIDE 40 MG TABS 1 by mouth daily FUROSEMI DE 90783682621 No Longer Active Nguyen Perez Active PROVIGIL 200 MG TABS 1/2 tab po q day MODAFINIL 30244 535151 Active Mitch Urbina DO Active PROVIGIL 100 MG TABS Take one by mouth daily MO DAFINIL 35970851738 No Longer Active Mitch Urbina DO Active BACTRIM DS 800-160 MG TAB 1 tab by mouth twice daily TRIMETHOPRIM-SULFAMETHOXAZOLE 28483849817 No Longer Active Renan Hays MD Active FAMOTIDINE 20 MG TABS by mouth twice a day FAMOTI DINE 24398187754 Active Mitch Urbina DO Active ADULT ASPIRIN LOW STRENGTH 81 MG TBDP 1 by mouth every daily ASPIRIN 49871254635 Active Mitch Urbina DO Active METOPROLOL TARTRATE 50 MG TABS 1 by mouth twice daily METOPROLOL TARTRATE 98470106442 Active Mitch Urbina DO Active BACTRIM DS 800-160 MG TAB 1 tab by mouth twice daily 2 BACTRIM DS 800-160 MG TAB TRIMETHOPRIM-SULFAMETHOXAZOLE Inac tive PROVIGIL 100 MG TABS Take one by mouth daily 4 PROVIGIL 100 MG TABS 385726 MODAFINIL Inactive FUROSEMIDE 40 MG TABS 1 by mouth daily FU ROSEMIDE 40 MG TABS 919564 FUROSEMIDE Inactive KLOR-CON 20 MEQ PACK Take one by mouth daily 8 KLOR-CON 20 MEQ PACK 984951 POTASSIUM CHLORIDE Inactive LISINOPRIL 5 MG TABS 1 by mouth every day LISINOPRIL 5 MG TABS 452114 LISINOPRIL Inactive COLCRYS 0.6 MG TABS 1 po q 6 hours prn gout pain 03/02 COLCRYS 0.6 MG TABS COLCHICINE Inactive JANUVIA 100 MG TABS 1/2 by mouth every day JANUVI A 100 MG TABS SITAGLIPTIN PHOSPHATE Inactive SIMVASTATIN 20 MG TABS 1 tab daily at bedtime SIMVASTATIN 20 MG TABS 151742 SIMVASTATIN Inactive COUMADIN 6 MG TABS 1 by mouth every other day COUMADIN 6 MG TABS 988479 WARFARIN SODIUM Inactive COUMADIN 5 MG TABS 1 by mouth every other day COUMADIN 5 MG TABS 912986 WARFARIN SODIUM Inactive LISINOPRIL 20 MG TABS 1 tab po at HS KOKI NOPRIL 20 MG TABS 076062 LISINOPRIL Inactive LISINOPRIL-HYDROCHLOROTHIAZIDE 20-12.5 MG TABS 1 tab by mouth da rocky LISINOPRIL-HYDROCHLOROTHIAZIDE 20-12.5 MG TABS 630055 LISINOPRIL-HYDROCHLOROTHIAZIDE Inactive POLYTRIM 56845-9.1 UNIT/ML-% SOLN 1 drop in affected e ye every 3 hours while awake x 7 days POLYTRIM 86696-7.1 UNIT/ML-% SOLN 07970 7 POLYMYXIN B-TRIMETHOPRIM Inactive COUMADIN 4 MG TABS 1 tablet daily COUMADIN 4 MG TABS 840090 WARFARIN SODIUM Inactive CLONIDINE HCL 0.1 MG TABS 1 po bid 7 days, then 1/2 tab po b id 7 days CLONIDINE HCL 0.1 MG TABS 942255 CLONIDINE HCL I nactive ALLOPURINOL 300 MG TABS Take 1 tablet by mouth daily 2 ALLOPURINOL 300 MG TABS 699642 ALLOPURINOL Inactive MECLIZINE HCL 25 MG TAB 1 po tid 3 days, then 1/2 tab tid 3 days MECLIZINE HCL 25 MG TAB 282430 MECLIZINE HCL Inactive LOVENOX 100 MG/ML SC SOLN One injection twice a day 09/15/15 LOVENOX 100 MG/ML SC SOLN 905938 ENOXAPARIN SODIUM Inactive Vital Signs Date Name [...] weight E&M 234.44 [lb_av] Weight Measure d blood pressure, diastolic 84 mm[Hg] BP mane blood pressure, systolic 192 mm[Hg] BP sys height E&M 70 [in_us] Bdy height pulse rate E&M 80 /min Heart rate temperature E&M 98.7 [degF] Body temp erature weight E&M 245 [lb_av] Weight Measure d blood pressure, diastolic 80 mm[Hg] BP mane blood pressure, systolic 170 mm[Hg] BP sys height E&M 70 [in_us] Bdy height pulse rate E&M 82 /min Heart rate temperature E&M 99.9 [degF] Body temp erature weight E&M 254 [lb_av] Weight Measure d blood pressure, diastolic 82 mm[Hg] BP mane blood pressure, systolic 158 mm[Hg] BP sys height E&M 70 [in_us] Bdy height pulse rate E&M 85 /min Heart rate temperature E&M 100.3 [degF] Body temp erature weight E&M 240.50 [lb_av] Weight Measure d blood pressure, diastolic 80 mm[Hg] BP mane blood pressure, systolic 158 mm[Hg] BP sys height E&M 70 [in_us] Bdy height pulse rate E&M 87 /min Heart rate temperature E&M 98.6 [degF] Body temp erature weight E&M 237 [lb_av] Weight Measure d Diagnostic Results Date Name Value Unit Range Description Append: Anticoagulation Management - Coa gulation international normalized ratio (INR) coagulation managed by Camila Reese international normalized ratio (INR) coagulation managed by Mitch Urbina international normalized ratio (INR) coagulation managed by Mitch Urbina DO international normalized ratio (INR) coagulation managed by Mitch Urbina international normalized ratio (INR) international normalized ratio (INR) coagulation managed by Mitch Urbina DO international normalized ratio (INR) coagulation managed by Mitch Urbina DO Lab Report: CBC, HGBA1C, Lipid Panel - C hemistry hemoglobin A1C, blood, as % of total hemoglobin 6.9 % 4.3-6.0 cholesterol, serum 108 mg/dL 274-480 8489/11/01 triglyceride, serum, fasting 112 mg/dL 30-200 HDL [...] count 374 10^3/MM^3 10*3/mm3 142-424 Lab Report: HGBA1C - Chemistry hemoglobin A1C, blood, as % of total hemoglobin 6.5 % 4.3-6.0 Lab Report: Prothrombin Time - Coagulati on prothrombin time (patient) 19.9 SECS s 11.4-12.8 international normalized ratio (INR) 2.6 1.0-3.5 prothrombin time (patient) 18.9 SECS s 11.4-12.8 international normalized ratio (INR) 2.4 1.0-3.5 prothrombin time (patient) 15.6 SECS s 11.4-12.8 international normalized ratio (INR) 1.6 1.0-3.5 prothrombin time (patient) 17.8 SECS s 11.4-12.8 international normalized ratio (INR) 2.1 1.0-3.5 prothrombin time (patient) 18.4 SECS s 11.1-13.4 international normalized ratio (INR) 2.2 1.0-3.5 prothrombin time (patient) 16.8 SECS s 11.1-13.4 international normalized ratio (INR) 1.9 1.0-3.5 prothrombin time (patient) 20.7 SECS s 11.4-12.8 international normalized ratio (INR) 2.8 1.0-3.5 Encounters Code Encounter Date Provider Facility CPT-56156 Level 3 Est. Patient 13:53:19 KILN FIRER Mitch luis [facility] CPT-47804 Level 3 Est. Patient 19:19:37 KILN FIRER Mitch W Nona luis [facility] CPT-53135 Level 3 Est. Patient 13:25:53 KILN FIRER Tavo toure MD [facility]-60360 Level 3 Est. Patient 18:17:28 CDT Mitch luis [facility] CPT-62751 Level 3 Est. Patient 15:22:57 CDT Mitch W L janelle [facility] CPT-02437 Level 3 Est. Patient 18:21:50 CDT Mitch W L janelle [facility] CPT-85268 Level 3 Est. Patient 18:20:38 CDT Mitch W L janelle [facility]-76682 Level 3 Est. Patient 15:37:55 CDT Mitch W L janelle [facility] CPT-90151 Level 2 Est. Patient 15:54:44 CDT Carmine benton MD [facility] CPT-71866 Level 3 Est. Patient 21:46:01 KILN FIRER Mitch luis [facility] CPT-16550 Level 3 Est. Patient 22:15:50 CDT Mitch luis [facility] CPT-67898 Level 3 Est. Patient 10:48:15 CDT Mitch luis [facility] CPT-94787 Level 3 Est. Patient 23:20:57 CDT Tavo toure MD [facility] CPT-44981 Level 3 Est. Patient 16:26:13 CDT Mitch luis [facility] Procedures Code Procedure Name Date Entry Date Standard Desc ription CPT-09988 Venipuncture Draw Fee 10:13:28 KILN FIRER CPT-32798 Venipuncture Draw Fee 08:31:11 CDT CPT-91753 Aspir/Inject Med Joint 18:17:28 CDT CPT-58438 Venipuncture Draw Fee 10:13:30 CDT CPT-14097 Venipuncture Draw Fee 08:31:43 KILN FIRER CPT-JTINJ Joint Injection 18:34:50 CDT CPT-48779 Knee 3V 12:25:09 CDT CPT-65278 Venipuncture Draw Fee 12:15:57 CDT CPT-060 Medical Surveillance Exam 21:31:43 CDT 2011 CPT-17016 Venipuncture Draw Fee 08:32:05 KILN FIRER CPT-OV Office Visit 18:19:06 CDT
--- OUTSIDE RECORDS SUMMARY | 2020-01-18 12:34 | XMS REPORT | Clinical Summary ---
Author Author Admin, Mitch Leon Organization [facility] Address Unknown Phone Unavailable Allergies, Adverse Reactions, [...] Coronary atherosclerosis of unspecified type of vessel, [place] or graft EDEMA 782.3 Resolved Mitch Urbina [...] 500 MG CAP 1 po qid CEPHALEXIN 55827019570 Act juan Mitch Ambrose Carlitos VELASQUEZ Active LOSARTAN POTASSIUM 100 MG TABS 1 pill by mouth daily, for bl ood pressure LOSARTAN POTASSIUM 36888783475 Active Ana Wallace Active AMLODIPINE BESYLATE 5 MG TABS 1 tablet by mouth daily AMLODIPINE BESYLATE 38152651343 No Longer Active Joe Davisdonaldo VALENCIA Active MITIGARE 0.6 MG ORAL CAPS 2 capsules at onset of gout pain, then take one capsule at 1 hour if symptoms persist. COLCHICINE 59 518494133 Active Mitch Urbina DO Active COUMADIN 1 MG TAB 2 tabs orally daily with the 5mg tab to equal 7mg daily WARFARIN SODIUM 62178200166 Active Mitch Urbina DO Active COLCRYS 0.6 MG TABS 1 tab qid prn gout COLCHICINE 46485196071 Active Norma Cazares Active INVOKANA 100 MG ORAL TABS 1 tablet orally daily CANAGLIFLOZIN 49756172954 Active Mitch Urbina DO Active MINOXIDIL 2.5 MG TABS 1 tablet daily for high blood pressure 10/23 MINOXIDIL 45537242530 Active Mitch Urbina DO Active MECLIZINE HCL 25 MG TAB 1 po tid 3 days, then 1/2 tab tid 3 days MECLIZINE HCL 42712359495 No Longer Active Corey SEGURA Active ALLOPURINOL 300 MG TABS Take 1 tablet by mouth daily 2 ALLOPURINOL 98461810529 No Longer Active Corey SEGURA Activ e CLONIDINE HCL 0.1 MG TABS 1 po bid 7 days, then 1/2 tab po b id 7 days CLONIDINE HCL 59841062643 No Longer Active Corey SEGURA Active COUMADIN 5 MG TABS 1 tab PO daily WARFARIN SODIUM 86666453386 Active Mitch Urbina DO Active COUMADIN 4 MG TABS 1 tablet daily WARFARIN SODI UM 82776878803 No Longer Active Corey SEGURA Active POLYTRIM 76973-8.1 UNIT/ML-% SOLN 1 drop in affected e ye every 3 hours while awake x 7 days POLYMYXIN B-TRIMETHOPRIM 14376537748 N o Longer Active Corey SEGURA Active LOSARTAN POTASSIUM-HCTZ 100-12.5 MG TABS 1 by mouth [place] for high blood pressure LOSARTAN POTASSIUM-HCTZ 00177489310 No Longer A ctive Mitch Urbina DO Active LISINOPRIL-HYDROCHLOROTHIAZIDE 20-12.5 MG TABS 1 tab by mouth da rocky LISINOPRIL-HYDROCHLOROTHIAZIDE 89002032529 No Longer Active Mitch Castellano janelle DO Active LISINOPRIL 20 MG TABS 1 tab po at HS LISINOPRIL 33860976240 No Longer Active Mitch Urbina DO Active COUMADIN 5 MG TABS 1 by mouth every other day WARFARIN SODIUM 62510667288 No Longer Active Mitch Urbina DO Active COUMADIN 6 MG TABS 1 by mouth every other day WARFARIN SODIUM 60786438311 No Longer Active Mitch Urbina DO Active SIMVASTATIN 40 MG TABS 1 tab daily at bedtime S IMVASTATIN 56401491673 Active Mitch Urbina DO Active SIMVASTATIN 20 MG TABS 1 tab daily at bedtime S IMVASTATIN 69309368350 No Longer Active Mitch Urbina DO Active LOVENOX 100 MG/ML SC SOLN One injection twice a day 09/15/15 ENOXAPARIN SODIUM 81790947744 No Longer Active Carmine Yusuf MD A ctive JANUVIA 50 MG TABS Take one by mouth daily DIEGO GLIPTIN PHOSPHATE 63889523719 Active Mitch Urbina DO Active JANUVIA 100 MG TABS 1/2 by mouth every day DIEGO GLIPTIN PHOSPHATE 24902286933 No Longer Active Bijal Segal RN Active METFORMIN HCL 500 MG TABS 2 by mouth twice daily METFORMIN HCL 18827444036 Active Mitch Urbina DO Active GLIMEPIRIDE 4 MG TABS 1 tab po bid GLIMEPIRIDE 633522 99395 Active Mitch Urbina DO Active COLCRYS 0.6 MG TABS 1 po q 6 hours prn gout pain 03/02 COLCHICINE 49273004961 No Longer Active Camila Reese Active LISINOPRIL 5 MG TABS 1 by mouth every day LISIN OPRIL 64839736267 No Longer Active Nguyen Perez Active KLOR-CON 20 MEQ PACK Take one by mouth daily 8 POTASSIUM CHLORIDE 28898358469 No Longer Active Nguyen Perez Active FUROSEMIDE 40 MG TABS 1 by mouth daily FUROSEMI DE 87507387551 No Longer Active Nguyenmolly Perez Active PROVIGIL 200 MG TABS 1/2 tab po q day MODAFINIL 34167 737836 Active Mitch Urbina DO Active PROVIGIL 100 MG TABS Take one by mouth daily MO DAFINIL 87218683784 No Longer Active Mitch Urbina DO Active BACTRIM DS 800-160 MG TAB 1 tab by mouth twice daily 2 TRIMETHOPRIM-SULFAMETHOXAZOLE 34675783469 No Longer Active Renan Hays MD Active FAMOTIDINE 20 MG TABS by mouth twice a day FAMOTI DINE 08350564540 Active Mitch Urbina DO Active ADULT ASPIRIN LOW STRENGTH 81 MG TBDP 1 by mouth every daily ASPIRIN 82620674554 Active Mitch Urbina DO Active METOPROLOL TARTRATE 50 MG TABS 1 by mouth twice daily METOPROLOL TARTRATE 10565826816 Active Mitch Urbina DO Active BACTRIM DS 800-160 MG TAB 1 tab by mouth twice daily 2 BACTRIM DS 800-160 MG TAB 284947 TRIMETHOPRIM-SULFAMETHOXAZOLE Inac tive PROVIGIL 100 MG TABS Take one by mouth daily 4 PROVIGIL 100 MG TABS 506061 MODAFINIL Inactive FUROSEMIDE 40 MG TABS 1 by mouth daily FU ROSEMIDE 40 MG TABS 652113 FUROSEMIDE Inactive KLOR-CON 20 MEQ PACK Take one by mouth daily 8 KLOR-CON 20 MEQ PACK POTASSIUM CHLORIDE Inactive LISINOPRIL 5 MG TABS 1 by mouth every day LISINOPRIL 5 MG TABS 819138 LISINOPRIL Inactive COLCRYS 0.6 MG TABS 1 po q 6 hours prn gout pain 03/02 COLCRYS 0.6 MG TABS 917371 COLCHICINE Inactive JANUVIA 100 MG TABS 1/2 by mouth every day JANUVI A 100 MG TABS SITAGLIPTIN PHOSPHATE Inactive SIMVASTATIN 20 MG TABS 1 tab daily at bedtime SIMVASTATIN 20 MG TABS 684290 SIMVASTATIN Inactive COUMADIN 6 MG TABS 1 by mouth every other day COUMADIN 6 MG TABS 487893 WARFARIN SODIUM Inactive COUMADIN 5 MG TABS 1 by mouth every other day COUMADIN 5 MG TABS 064885 WARFARIN SODIUM Inactive LISINOPRIL 20 MG TABS 1 tab po at HS KOKI NOPRIL 20 MG TABS 765210 LISINOPRIL Inactive LISINOPRIL-HYDROCHLOROTHIAZIDE 20-12.5 MG TABS 1 tab by mouth da rocky LISINOPRIL-HYDROCHLOROTHIAZIDE 20-12.5 MG TABS 204565 LISINOPRIL-HYDROCHLOROTHIAZIDE Inactive POLYTRIM 66351-2.1 UNIT/ML-% SOLN 1 drop in affected e ye every 3 hours while awake x 7 days POLYTRIM 09932-0.1 UNIT/ML-% SOLN 35308 7 POLYMYXIN B-TRIMETHOPRIM Inactive COUMADIN 4 MG TABS 1 tablet daily COUMADIN 4 MG TABS 267748 WARFARIN SODIUM Inactive CLONIDINE HCL 0.1 MG TABS 1 po bid 7 days, then 1/2 tab po b id 7 days CLONIDINE HCL 0.1 MG TABS 896652 CLONIDINE HCL I nactive ALLOPURINOL 300 MG TABS Take 1 tablet by mouth daily 2 ALLOPURINOL 300 MG TABS 119960 ALLOPURINOL Inactive MECLIZINE HCL 25 MG TAB 1 po tid 3 days, then 1/2 tab tid 3 days MECLIZINE HCL 25 MG TAB 428451 MECLIZINE HCL Inactive AMLODIPINE BESYLATE 5 MG TABS 1 tablet by mouth daily AMLODIPINE BESYLATE 5 MG TABS 920159 AMLODIPINE BESYLATE Inactive LOVENOX 100 MG/ML SC SOLN One injection twice a day 09/15/15 LOVENOX 100 MG/ML SC SOLN 819323 ENOXAPARIN SODIUM Inactive Vital Signs Date Name [...] - Chem istry sodium, serum 139 mmol/L 043-439 2529/07/17 potassium, serum 4.2 mmol/L 3.5-5.2 chloride, serum 102 mmol/L 98-107 carbon dioxide, venous blood 28.9 mmol/L 21.0-32 .0 blood glucose 211 mg/dL 65-110 calcium, serum 10.6 mg/dL 8.5-10.1 urea nitrogen, blood 29 mg/dL 7-18 creatinine, serum 1.24 mg/dL 0.60-1.30 sodium, serum 141 mmol/L 737-405 2513/08/07 potassium, serum 4.5 mmol/L 3.5-5.2 chloride, serum [...] ... - Chemistry sodium, serum 144 mmol/L 474-678 0825/06/12 carbon dioxide, venous blood 26.6 mmol/L 21.0-32 [...] 1.0-3.5 Encounters Code Encounter Date Provider Facility CPT-33842 Level 3 Est. Patient 19:43:34 CDT Mitch luis [facility] CPT-77536 Level 4 Est. Patient 09:30:18 CDT Mitch luis [facility] CPT-79062 Level 3 Est. Patient 15:10:14 CDT Joe kamara [facility] [place] CPT-75769 Level 3 Est. Patient 15:03:46 CDT Joe kamara [facility] [place] CPT-32785 Level 3 Est. Patient 14:21:06 CDT Mitch luis [facility] CPT-39544 Level 3 Est. Patient 14:52:06 CDT Joe kamara [facility] [place] CPT-39146 Level 3 Est. Patient 09:34:30 COIL REWIND MACHINE OPERATOR Mitch luis [facility] CPT-82103 Level 3 Est. Patient 09:37:15 CDT Mitch luis [facility] CPT-63318 Level 3 Est. Patient 17:01:00 COIL REWIND MACHINE OPERATOR Mitch luis [facility] CPT-12850 Level 3 Est. Patient 13:53:19 COIL REWIND MACHINE OPERATOR Mitch luis [facility] CPT-89462 Level 3 Est. Patient 19:19:37 COIL REWIND MACHINE OPERATOR Mitch luis [facility] CPT-55008 Level 3 Est. Patient 13:25:53 COIL REWIND MACHINE OPERATOR Tavo toure MD [facility] CPT-88079 Level 3 Est. Patient 18:17:28 CDT Mitch luis [facility] CPT-31465 Level 3 Est. Patient 15:22:57 CDT Mitch W L janelle [facility] CPT-65043 Level 3 Est. Patient 18:21:50 CDT Mitch W L janelle [facility] CPT-76341 Level 3 Est. Patient 18:20:38 CDT Mitch W L janelle [facility] CPT-20397 Level 3 Est. Patient 15:37:55 CDT Mitch W L janelle [facility] CPT-25941 Level 2 Est. Patient 15:54:44 CDT Carmine benton MD [facility] CPT-42976 Level 3 Est. Patient 21:46:01 COIL REWIND MACHINE OPERATOR Mitch luis [facility] CPT-09409 Level 3 Est. Patient 22:15:50 CDT Mitch W L janelle [facility] CPT-88739 Level 3 Est. Patient 10:48:15 CDT Mitch W Nona luis [facility] CPT-85621 Level 3 Est. Patient 23:20:57 CDT Tavo toure MD [facility] CPT-08180 Level 3 Est. Patient 16:26:13 CDT Mitch Ambrose L janelle [facility] Procedures Code Procedure Name Date Entry Date Standard Desc ription CPT-58700 Venipuncture Draw Fee 09:26:17 CDT CPT-13594 PT/INR - LAB USE ONLY 13:32:49 COIL REWIND MACHINE OPERATOR CPT-50049 Venipuncture Draw Fee 13:32:49 COIL REWIND MACHINE OPERATOR CPT-95748 PT/INR - LAB USE ONLY 10:34:49 COIL REWIND MACHINE OPERATOR CPT-47712 Venipuncture Draw Fee 10:34:48 COIL REWIND MACHINE OPERATOR CPT-24800 PT/INR - LAB USE ONLY 09:22:03 COIL REWIND MACHINE OPERATOR CPT-39611 Venipuncture Draw Fee 09:22:02 COIL REWIND MACHINE OPERATOR CPT-41729 Hemoccult IFOBT - LAB USE ONLY 10:27:22 CDT CPT-28796 Venipuncture Draw Fee 08:27:08 CDT CPT-31394 Liver Profile - LAB USE ONLY 08:27:07 CDT 2 CPT-99421 Microalbumin - LAB USE ONLY 08:27:07 CDT 20 25/05/09 CPT-37303 PT/INR - LAB USE ONLY 08:27:07 CDT CPT-06240 HGBA1C - LAB USE ONLY 08:27:07 CDT CPT-19698 CBC - LAB USE ONLY 08:27:07 CDT CPT-97604 Venipuncture Draw Fee 11:09:14 CDT CPT-29281 Venipuncture Draw Fee 08:32:21 COIL REWIND MACHINE OPERATOR CPT-99446 Venipuncture Draw Fee 09:38:56 COIL REWIND MACHINE OPERATOR CPT-01227 No Charge Offi Visit 21:36:07 CDT 1 CPT-94494 Venipuncture Draw Fee 10:13:28 COIL REWIND MACHINE OPERATOR CPT-24729 Venipuncture Draw Fee 08:31:11 CDT CPT-34507 Aspir/Inject Med Joint 18:17:28 CDT CPT-41064 Venipuncture Draw Fee 10:13:30 CDT CPT-71721 Venipuncture Draw Fee 08:31:43 COIL REWIND MACHINE OPERATOR CPT-JTINJ Joint Injection 18:34:50 CDT CPT-40226 Knee 3V 12:25:09 CDT CPT-74053 Venipuncture Draw Fee 12:15:57 CDT CPT-060 Medical Surveillance Exam 21:31:43 CDT 2011 CPT-54985 Venipuncture Draw Fee 08:32:05 COIL REWIND MACHINE OPERATOR CPT-OV Office Visit 18:19:06 CDT
--- OUTSIDE RECORDS SUMMARY | 2020-01-18 12:34 | XMS REPORT | Clinical Summary ---
Author Author Admin, Mitch Leon Organization [facility] Address Unknown Phone Allergies, Adverse Reactions, Alerts [...] of vessel, hopi or graft EDEMA 782.3 Active Mitch Kilpatrick [...] 1/2 tab tid 3 days MECLIZINE HCL 75142918952 No Longer Active Corey SEGURA Active ALLOPURINOL 300 MG TABS Take 1 tablet by mouth daily 2 ALLOPURINOL 51896779686 No Longer Active Corey SEGURA Activ e CLONIDINE HCL 0.1 MG TABS 1 po bid 7 days, then 1/2 tab po b id 7 days CLONIDINE HCL 28757214342 No Longer Active Corey SEGURA Active COUMADIN 5 MG TABS 1 tab PO daily WARFARIN SODIUM 90562970717 Active Mitch Urbina DO Active COUMADIN 4 MG TABS 1 tablet daily WARFARIN SODI UM 40670577209 No Longer Active Corey SEGURA Active POLYTRIM 93460-2.1 UNIT/ML-% SOLN 1 drop in affected e ye every 3 hours while awake x 7 days POLYMYXIN B-TRIMETHOPRIM 02897695321 N o Longer Active Corey SEGURA Active LOSARTAN POTASSIUM-HCTZ 100-12.5 MG TABS 1 by mouth da rocky for high blood pressure LOSARTAN POTASSIUM-HCTZ 37917704711 Active Stephy Urbina DO Active LISINOPRIL-HYDROCHLOROTHIAZIDE 20-12.5 MG TABS 1 tab by mouth da rocky LISINOPRIL-HYDROCHLOROTHIAZIDE 70584240137 No Longer Active Mitch luis DO Active LISINOPRIL 20 MG TABS 1 tab po at HS LISINOPRIL 68347227574 No Longer Active Mitch Urbina DO Active COUMADIN 5 MG TABS 1 by mouth every other day WARFARIN SODIUM 78824430701 No Longer Active Mitch Urbina DO Active COUMADIN 6 MG TABS 1 by mouth every other day WARFARIN SODIUM 25693510300 No Longer Active Mitch Urbina DO Active COLCRYS 0.6 MG TABS 1 tab qid prn gout COLCHICINE 23295778228 Active Mitch Urbina DO Active SIMVASTATIN 40 MG TABS 1 tab daily at bedtime S IMVASTATIN 93463294346 Active Mitch Urbina DO Active SIMVASTATIN 20 MG TABS 1 tab daily at bedtime S IMVASTATIN 06999668845 No Longer Active Mitch Urbina DO Active LOVENOX 100 MG/ML SC SOLN One injection twice a day 09/15/15 ENOXAPARIN SODIUM 14111283891 No Longer Active Carmine Navarrete ctive JANUVIA 50 MG TABS Take one by mouth daily DIEGO GLIPTIN PHOSPHATE 91203193524 Active Mitch Urbina DO Active JANUVIA 100 MG TABS 1/2 by mouth every day DIEGO GLIPTIN PHOSPHATE 89421696545 No Longer Active Bijal Philipp RN Active METFORMIN HCL 500 MG TABS 2 by mouth twice daily METFORMIN HCL 30445081542 Active Curly Coker MD Active GLIMEPIRIDE 4 MG TABS 1 tab po bid GLIMEPIRIDE 349642 77660 Active Mitch Urbina DO Active COLCRYS 0.6 MG TABS 1 po q 6 hours prn gout pain 03/02 COLCHICINE 73051688336 No Longer Active Camila Almond Active LISINOPRIL 5 MG TABS 1 by mouth every day LISIN OPRIL 53760748122 No Longer Active Nguyenmolly Perez Active KLOR-CON 20 MEQ PACK Take one by mouth daily POTASSIUM CHLORIDE 36596568715 No Longer Active Nguyenmolly Perez Active FUROSEMIDE 40 MG TABS 1 by mouth daily FUROSEMI DE 37429842817 No Longer Active Nguyen Perez Active PROVIGIL 200 MG TABS 1/2 tab po q day MODAFINIL 85953 029989 Active Mitch Urbina DO Active PROVIGIL 100 MG TABS Take one by mouth daily MO DAFINIL 43534402272 No Longer Active Mitch Urbina DO Active BACTRIM DS 800-160 MG TAB 1 tab by mouth twice daily TRIMETHOPRIM-SULFAMETHOXAZOLE 27759687625 No Longer Active Renan Hays MD Active FAMOTIDINE 20 MG TABS by mouth twice a day FAMOTI DINE 65669589702 Active Mitch Urbina DO Active ADULT ASPIRIN LOW STRENGTH 81 MG TBDP 1 by mouth every daily ASPIRIN 58665653948 Active Mitch Urbina DO Active METOPROLOL TARTRATE 50 MG TABS 1 by mouth twice daily METOPROLOL TARTRATE 67759799472 Active Mitch Urbina DO Active BACTRIM DS 800-160 MG TAB 1 tab by mouth twice daily 2 BACTRIM DS 800-160 MG TAB TRIMETHOPRIM-SULFAMETHOXAZOLE Inac tive PROVIGIL 100 MG TABS Take one by mouth daily 4 PROVIGIL 100 MG TABS 452277 MODAFINIL Inactive FUROSEMIDE 40 MG TABS 1 by mouth daily FU ROSEMIDE 40 MG TABS 193107 FUROSEMIDE Inactive KLOR-CON 20 MEQ PACK Take one by mouth daily 8 KLOR-CON 20 MEQ PACK 534716 POTASSIUM CHLORIDE Inactive LISINOPRIL 5 MG TABS 1 by mouth every day LISINOPRIL 5 MG TABS 553670 LISINOPRIL Inactive COLCRYS 0.6 MG TABS 1 po q 6 hours prn gout pain 03/02 COLCRYS 0.6 MG TABS COLCHICINE Inactive JANUVIA 100 MG TABS 1/2 by mouth every day JANUVI A 100 MG TABS SITAGLIPTIN PHOSPHATE Inactive SIMVASTATIN 20 MG TABS 1 tab daily at bedtime SIMVASTATIN 20 MG TABS 460846 SIMVASTATIN Inactive COUMADIN 6 MG TABS 1 by mouth every other day COUMADIN 6 MG TABS 544373 WARFARIN SODIUM Inactive COUMADIN 5 MG TABS 1 by mouth every other day COUMADIN 5 MG TABS 607113 WARFARIN SODIUM Inactive LISINOPRIL 20 MG TABS 1 tab po at HS KOKI NOPRIL 20 MG TABS 683556 LISINOPRIL Inactive LISINOPRIL-HYDROCHLOROTHIAZIDE 20-12.5 MG TABS 1 tab by mouth da rocky LISINOPRIL-HYDROCHLOROTHIAZIDE 20-12.5 MG TABS 490715 LISINOPRIL-HYDROCHLOROTHIAZIDE Inactive POLYTRIM 80560-1.1 UNIT/ML-% SOLN 1 drop in affected e ye every 3 hours while awake x 7 days POLYTRIM 75104-7.1 UNIT/ML-% SOLN 42303 7 POLYMYXIN B-TRIMETHOPRIM Inactive COUMADIN 4 MG TABS 1 tablet daily COUMADIN 4 MG TABS 708903 WARFARIN SODIUM Inactive CLONIDINE HCL 0.1 MG TABS 1 po bid 7 days, then 1/2 tab po b id 7 days CLONIDINE HCL 0.1 MG TABS 838940 CLONIDINE HCL I nactive ALLOPURINOL 300 MG TABS Take 1 tablet by mouth daily 2 ALLOPURINOL 300 MG TABS 170477 ALLOPURINOL Inactive MECLIZINE HCL 25 MG TAB 1 po tid 3 days, then 1/2 tab tid 3 days MECLIZINE HCL 25 MG TAB 368318 MECLIZINE HCL Inactive LOVENOX 100 MG/ML SC SOLN One injection twice a day 09/15/15 LOVENOX 100 MG/ML SC SOLN 698770 ENOXAPARIN SODIUM Inactive Vital Signs Date Name [...] 6.9 % 4.3-6.0 cholesterol, serum 108 mg/dL 126-843 2903/11/01 triglyceride, serum, fasting 112 mg/dL 30-200 HDL [...] 1.0-3.5 Encounters Code Encounter Date Provider Facility CPT-52049 Level 3 Est. 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 Patient 19:19:37 SIZING MACHINE AND DRIER OPERATOR Mitch W Nona luis [facility] CPT-46277 Level 3 Est. Patient 13:25:53 SIZING MACHINE AND DRIER OPERATOR Tavo toure MD [facility] [place]-31399 Level 3 Est. Patient 18:17:28 CDT Mitch luis [facility] CPT-38876 Level 3 Est. Patient 15:22:57 CDT Imtch W L janelle [facility] CPT-48661 Level 3 Est. Patient 18:21:50 CDT Mitch W L janelle [facility] CPT-82888 Level 3 Est. Patient 18:20:38 CDT Mitch W L janelle [facility]-90685 Level 3 Est. Patient 15:37:55 CDT Mitch W L janelle [facility] CPT-89562 Level 2 Est. Patient 15:54:44 CDT Carmine benton MD [facility] CPT-20247 Level 3 Est. Patient 21:46:01 SIZING MACHINE AND DRIER OPERATOR Mitch luis [facility] CPT-92619 Level 3 Est. Patient 22:15:50 CDT Mitch luis [facility] CPT-07632 Level 3 Est. Patient 10:48:15 CDT Mitch luis [facility] CPT-97034 Level 3 Est. Patient 23:20:57 CDT Tavo toure MD [facility] CPT-74235 Level 3 Est. Patient 16:26:13 CDT Mitch luis [facility] Procedures Code Procedure Name Date Entry Date Standard Desc ription CPT-13057 Venipuncture Draw Fee 10:13:28 SIZING MACHINE AND DRIER OPERATOR CPT-15390 Venipuncture Draw Fee 08:31:11 CDT CPT-63285 Aspir/Inject Med Joint 18:17:28 CDT CPT-47889 Venipuncture Draw Fee 10:13:30 CDT CPT-53147 Venipuncture Draw Fee 08:31:43 SIZING MACHINE AND DRIER OPERATOR CPT-JTINJ Joint Injection 18:34:50 CDT CPT-90214 Knee 3V 12:25:09 CDT CPT-27476 Venipuncture Draw Fee 12:15:57 CDT CPT-060 Medical Surveillance Exam 21:31:43 CDT 2011 CPT-05572 Venipuncture Draw Fee 08:32:05 SIZING MACHINE AND DRIER OPERATOR CPT-OV Office Visit 18:19:06 CDT
--- OUTSIDE RECORDS SUMMARY | 2020-01-18 12:34 | XMS REPORT | Clinical Summary ---
Author Author Admin, Mitch Leon Organization [facility] Address Unknown Phone Unavailable Allergies, [...] Coronary atherosclerosis of unspecified type of vessel, [place] or graft EDEMA 782.3 Active Mitch Urbina [...] 1/2 tab tid 3 days MECLIZINE HCL 42299236218 No Longer Active Corey SEGURA Active ALLOPURINOL 300 MG TABS Take 1 tablet by mouth daily 2 ALLOPURINOL 50879673335 No Longer Active Corey SEGURA Activ e CLONIDINE HCL 0.1 MG TABS 1 po bid 7 days, then 1/2 tab po b id 7 days CLONIDINE HCL 17647004127 No Longer Active Corey SEGURA Active COUMADIN 5 MG TABS 1 tab PO daily WARFARIN SODIUM 95417361365 Active Mitch Urbina DO Active COUMADIN 4 MG TABS 1 tablet daily WARFARIN SODI UM 54446921298 No Longer Active Corey SEGURA Active POLYTRIM 76291-8.1 UNIT/ML-% SOLN 1 drop in affected e ye every 3 hours while awake x 7 days POLYMYXIN B-TRIMETHOPRIM 70461380142 N o Longer Active Corey SEGURA Active LOSARTAN POTASSIUM-HCTZ 100-12.5 MG TABS 1 by mouth da rocky for high blood pressure LOSARTAN POTASSIUM-HCTZ 00907305048 Active Stephy Urbina DO Active LISINOPRIL-HYDROCHLOROTHIAZIDE 20-12.5 MG TABS 1 tab by mouth da rocky LISINOPRIL-HYDROCHLOROTHIAZIDE 14017798511 No Longer Active Mitch luis DO Active LISINOPRIL 20 MG TABS 1 tab po at HS LISINOPRIL 31994729093 No Longer Active Mitch Urbina DO Active COUMADIN 5 MG TABS 1 by mouth every other day WARFARIN SODIUM 42301394507 No Longer Active Mitch Urbina DO Active COUMADIN 6 MG TABS 1 by mouth every other day WARFARIN SODIUM 50040745537 No Longer Active Mitch Urbina DO Active COLCRYS 0.6 MG TABS 1 tab qid prn gout COLCHICINE 61457671981 Active Mitch Urbina DO Active SIMVASTATIN 40 MG TABS 1 tab daily at bedtime S IMVASTATIN 91710952130 Active Mitch Urbina DO Active SIMVASTATIN 20 MG TABS 1 tab daily at bedtime S IMVASTATIN 22138001368 No Longer Active Mitch Urbina DO Active LOVENOX 100 MG/ML SC SOLN One injection twice a day 09/15/15 ENOXAPARIN SODIUM 00454849549 No Longer Active Carmine Navarrete ctive JANUVIA 50 MG TABS Take one by mouth daily DIEGO GLIPTIN PHOSPHATE 85531186023 Active Mitch Urbina DO Active JANUVIA 100 MG TABS 1/2 by mouth every day DIEGO GLIPTIN PHOSPHATE 94817351406 No Longer Active Bijal Philipp RN Active METFORMIN HCL 500 MG TABS 2 by mouth twice daily METFORMIN HCL 40858539724 Active Mitch Urbina DO Active GLIMEPIRIDE 4 MG TABS 1 tab po bid GLIMEPIRIDE 972830 29339 Active Mitch Urbina DO Active COLCRYS 0.6 MG TABS 1 po q 6 hours prn gout pain 03/02 COLCHICINE 43705392933 No Longer Active Camila Hugh Active LISINOPRIL 5 MG TABS 1 by mouth every day LISIN OPRIL 68926640458 No Longer Active Nguyenmolly Perez Active KLOR-CON 20 MEQ PACK Take one by mouth daily 8 POTASSIUM CHLORIDE 29473619822 No Longer Active Nguyenmolly Perez Active FUROSEMIDE 40 MG TABS 1 by mouth daily FUROSEMI DE 07009171198 No Longer Active Nguyen Perez Active PROVIGIL 200 MG TABS 1/2 tab po q day MODAFINIL 81102 920597 Active Mitch Urbina DO Active PROVIGIL 100 MG TABS Take one by mouth daily MO DAFINIL 33667001195 No Longer Active Mitch Urbina DO Active BACTRIM DS 800-160 MG TAB 1 tab by mouth twice daily 2 TRIMETHOPRIM-SULFAMETHOXAZOLE 65716542072 No Longer Active Renan Hays MD Active FAMOTIDINE 20 MG TABS by mouth twice a day FAMOTI DINE 63704208759 Active Mitch Urbina DO Active ADULT ASPIRIN LOW STRENGTH 81 MG TBDP 1 by mouth every daily ASPIRIN 23668242263 Active Mitch Urbina DO Active METOPROLOL TARTRATE 50 MG TABS 1 by mouth twice daily METOPROLOL TARTRATE 65130048043 Active Mitch Urbina DO Active BACTRIM DS 800-160 MG TAB 1 tab by mouth twice daily 2 BACTRIM DS 800-160 MG TAB TRIMETHOPRIM-SULFAMETHOXAZOLE Inac tive PROVIGIL 100 MG TABS Take one by mouth daily 4 PROVIGIL 100 MG TABS 649234 MODAFINIL Inactive FUROSEMIDE 40 MG TABS 1 by mouth daily FU ROSEMIDE 40 MG TABS 459230 FUROSEMIDE Inactive KLOR-CON 20 MEQ PACK Take one by mouth daily 8 KLOR-CON 20 MEQ PACK 346195 POTASSIUM CHLORIDE Inactive LISINOPRIL 5 MG TABS 1 by mouth every day LISINOPRIL 5 MG TABS 509159 LISINOPRIL Inactive COLCRYS 0.6 MG TABS 1 po q 6 hours prn gout pain 03/02 COLCRYS 0.6 MG TABS COLCHICINE Inactive JANUVIA 100 MG TABS 1/2 by mouth every day JANUVI A 100 MG TABS SITAGLIPTIN PHOSPHATE Inactive SIMVASTATIN 20 MG TABS 1 tab daily at bedtime SIMVASTATIN 20 MG TABS 466781 SIMVASTATIN Inactive COUMADIN 6 MG TABS 1 by mouth every other day COUMADIN 6 MG TABS 619949 WARFARIN SODIUM Inactive COUMADIN 5 MG TABS 1 by mouth every other day COUMADIN 5 MG TABS 312947 WARFARIN SODIUM Inactive LISINOPRIL 20 MG TABS 1 tab po at HS KOKI NOPRIL 20 MG TABS 575412 LISINOPRIL Inactive LISINOPRIL-HYDROCHLOROTHIAZIDE 20-12.5 MG TABS 1 tab by mouth da rocky LISINOPRIL-HYDROCHLOROTHIAZIDE 20-12.5 MG TABS 405556 LISINOPRIL-HYDROCHLOROTHIAZIDE Inactive POLYTRIM 83373-2.1 UNIT/ML-% SOLN 1 drop in affected e ye every 3 hours while awake x 7 days POLYTRIM 90096-6.1 UNIT/ML-% SOLN 43627 7 POLYMYXIN B-TRIMETHOPRIM Inactive COUMADIN 4 MG TABS 1 tablet daily COUMADIN 4 MG TABS 030823 WARFARIN SODIUM Inactive CLONIDINE HCL 0.1 MG TABS 1 po bid 7 days, then 1/2 tab po b id 7 days CLONIDINE HCL 0.1 MG TABS 216112 CLONIDINE HCL I nactive ALLOPURINOL 300 MG TABS Take 1 tablet by mouth daily 2 ALLOPURINOL 300 MG TABS 488176 ALLOPURINOL Inactive MECLIZINE HCL 25 MG TAB 1 po tid 3 days, then 1/2 tab tid 3 days MECLIZINE HCL 25 MG TAB 440499 MECLIZINE HCL Inactive LOVENOX 100 MG/ML SC SOLN One injection twice a day 09/15/15 LOVENOX 100 MG/ML SC SOLN 726350 ENOXAPARIN SODIUM Inactive Vital Signs Date Name [...] 10.3 mg/dL 2.6-7.2 sodium, serum 136 mmol/L 091-522 8190/07/25 potassium, serum 4.6 mmol/L 3.5-5.2 chloride, serum [...] Panel, HGBA1 C, Lipid Panel - Chemistry potassium, serum 4.4 mmol/L 3.5-5.2 [...] 8.0 % 4.3-6.0 cholesterol, serum 130 mg/dL 240-669 5391/11/14 triglyceride, serum, fasting 288 mg/dL 30-200 HDL cholesterol, serum 33 mg/dL 32-96 LDL cholesterol, serum 39 mg/dL 0-130 sodium, serum 137 mmol/L 136-145 Lab Report: Prothrombin Time - Coagulati on international normalized ratio (INR) 2.2 1.0-3.5 prothrombin time (patient) 18.4 SECS s 11.1-13.4 prothrombin time (patient) 18.4 SECS s 11.1-13.4 international normalized ratio (INR) 2.2 1.0-3.5 prothrombin time (patient) 16.0 SECS s 11.1-13.4 international normalized ratio (INR) 1.7 1.0-3.5 prothrombin time (patient) 16.8 SECS s 11.1-13.4 international normalized ratio (INR) 1.9 1.0-3.5 prothrombin time (patient) 17.8 SECS s 11.4-12.8 international normalized ratio (INR) 2.1 1.0-3.5 prothrombin time (patient) 19.9 SECS s 11.1-13.4 international normalized ratio (INR) 2.6 1.0-3.5 Encounters Code Encounter Date Provider Facility CPT-74193 Level 3 Est. Patient 13:53:19 TASSEL SNIPPER Mitch luis [facility] CPT-85584 Level 3 Est. Patient 19:19:37 TASSEL SNIPPER Mitch luis [facility] CPT-92425 Level 3 Est. Patient 13:25:53 TASSEL SNIPPER Tavo toure MD [facility] CPT-45041 Level 3 Est. Patient 18:17:28 CDT Mitch luis [facility] CPT-10068 Level 3 Est. Patient 15:22:57 CDT Mitch luis [facility] CPT-74005 Level 3 Est. Patient 18:21:50 CDT Mitch luis [facility] CPT-67071 Level 3 Est. Patient 18:20:38 CDT Mitch luis [facility] CPT-70324 Level 3 Est. Patient 15:37:55 CDT Mitch luis [facility] CPT-94820 Level 2 Est. Patient 15:54:44 CDT Carmine benton MD [facility] CPT-45452 Level 3 Est. Patient 21:46:01 TASSEL SNIPPER Mitch luis [facility] CPT-18755 Level 3 Est. Patient 22:15:50 CDT Mitch luis [facility] CPT-43850 Level 3 Est. Patient 10:48:15 CDT Mitch luis DO [facility] CPT-08077 Level 3 Est. Patient 23:20:57 CDT Tavo toure MD [facility] CPT-02167 Level 3 Est. Patient 16:26:13 CDT Mitch luis [facility] Procedures Code Procedure Name Date Entry Date Standard Desc ription CPT-09634 Venipuncture Draw Fee 10:13:28 TASSEL SNIPPER CPT-09935 Venipuncture Draw Fee 08:31:11 CDT CPT-44755 Aspir/Inject Med Joint 18:17:28 CDT CPT-13284 Venipuncture Draw Fee 10:13:30 CDT CPT-43997 Venipuncture Draw Fee 08:31:43 TASSEL SNIPPER CPT-JTINJ Joint Injection 18:34:50 CDT CPT-69985 Knee 3V 12:25:09 CDT CPT-90398 Venipuncture Draw Fee 12:15:57 CDT CPT-060 Medical Surveillance Exam 21:31:43 CDT 2011 CPT-05509 Venipuncture Draw Fee 08:32:05 TASSEL SNIPPER CPT-OV Office Visit 18:19:06 CDT
--- OUTSIDE RECORDS SUMMARY | 2020-01-18 12:34 | XMS REPORT | Clinical Summary ---
[...] Coronary atherosclerosis of unspecified type of vessel, [place] or graft EDEMA 782.3 Active Mitch Urbina [...] 1 tablet by mouth daily AMLODIPINE BESYLATE 74756144719 Active Mitch Urbina DO Active MECLIZINE HCL 25 MG TAB 1 po tid 3 days, then 1/2 tab tid 3 days MECLIZINE HCL 02246774900 No Longer Active Corey SEGURA Active ALLOPURINOL 300 MG TABS Take 1 tablet by mouth daily 2 ALLOPURINOL 37050083515 No Longer Active Corey SEGURA Activ e CLONIDINE HCL 0.1 MG TABS 1 po bid 7 days, then 1/2 tab po b id 7 days CLONIDINE HCL 48129975302 No Longer Active Corey SEGURA Active COUMADIN 5 MG TABS 1 tab PO daily WARFARIN SODIUM 61026495147 Active Mitch Urbina DO Active COUMADIN 4 MG TABS 1 tablet daily WARFARIN SODI UM 46427911947 No Longer Active Corey SEGURA Active POLYTRIM 51328-2.1 UNIT/ML-% SOLN 1 drop in affected e ye every 3 hours while awake x 7 days POLYMYXIN B-TRIMETHOPRIM 35685773934 N o Longer Active Corey SEGURA Active LOSARTAN POTASSIUM-HCTZ 100-12.5 MG TABS 1 by mouth da rokcy for high blood pressure LOSARTAN POTASSIUM-HCTZ 67247260486 Active Stephy Urbina DO Active LISINOPRIL-HYDROCHLOROTHIAZIDE 20-12.5 MG TABS 1 tab by mouth da rocky LISINOPRIL-HYDROCHLOROTHIAZIDE 81376998162 No Longer Active Mitch luis DO Active LISINOPRIL 20 MG TABS 1 tab po at HS LISINOPRIL 59692865417 No Longer Active Mitch Urbina DO Active COUMADIN 5 MG TABS 1 by mouth every other day WARFARIN SODIUM 57082298750 No Longer Active Mitch Urbina DO Active COUMADIN 6 MG TABS 1 by mouth every other day WARFARIN SODIUM 15543117565 No Longer Active Mitch Urbina DO Active COLCRYS 0.6 MG TABS 1 tab qid prn gout COLCHICINE 20270831792 Active Corey SEGURA Active SIMVASTATIN 40 MG TABS 1 tab daily at bedtime S IMVASTATIN 28428013682 Active Mitch Urbina DO Active SIMVASTATIN 20 MG TABS 1 tab daily at bedtime S IMVASTATIN 41160789243 No Longer Active Mitch Urbina DO Active LOVENOX 100 MG/ML SC SOLN One injection twice a day 09/15/15 ENOXAPARIN SODIUM 06438429126 No Longer Active Carmine D [place] MD A ctive JANUVIA 50 MG TABS Take one by mouth daily DIEGO GLIPTIN PHOSPHATE 30883481161 Active Mitch Urbina DO Active JANUVIA 100 MG TABS 1/2 by mouth every day DIEGO GLIPTIN PHOSPHATE 09932610674 No Longer Active Bijalseth Segal RN Active METFORMIN HCL 500 MG TABS 2 by mouth twice daily METFORMIN HCL 90307669253 Active Corey Arias PA Active GLIMEPIRIDE 4 MG TABS 1 tab po bid GLIMEPIRIDE 454783 45923 Active Mitch Urbina DO Active COLCRYS 0.6 MG TABS 1 po q 6 hours prn gout pain 03/02 COLCHICINE 04433495663 No Longer Active Camila Reese Active LISINOPRIL 5 MG TABS 1 by mouth every day LISIN OPRIL 79826113411 No Longer Active Nguyen Perez Active KLOR-CON 20 MEQ PACK Take one by mouth daily 8 POTASSIUM CHLORIDE 24814921161 No Longer Active Nguyen Perez Active FUROSEMIDE 40 MG TABS 1 by mouth daily FUROSEMI DE 59594528576 No Longer Active Nguyen Perez Active PROVIGIL 200 MG TABS 1/2 tab po q day MODAFINIL 85330 223368 Active Mitch Urbina DO Active PROVIGIL 100 MG TABS Take one by mouth daily MO DAFINIL 41393271617 No Longer Active Mitch Urbina DO Active BACTRIM DS 800-160 MG TAB 1 tab by mouth twice daily TRIMETHOPRIM-SULFAMETHOXAZOLE 64927200445 No Longer Active Renan Hays MD Active FAMOTIDINE 20 MG TABS by mouth twice a day FAMOTI DINE 05645089145 Active Mitch Urbina DO Active ADULT ASPIRIN LOW STRENGTH 81 MG TBDP 1 by mouth every daily ASPIRIN 61518986479 Active Mitch Urbina DO Active METOPROLOL TARTRATE 50 MG TABS 1 by mouth twice daily METOPROLOL TARTRATE 17671308970 Active Mitch W [place] DO Active BACTRIM DS 800-160 MG TAB 1 tab by mouth twice daily 2 BACTRIM DS 800-160 MG TAB TRIMETHOPRIM-SULFAMETHOXAZOLE Inac tive PROVIGIL 100 MG TABS Take one by mouth daily 4 PROVIGIL 100 MG TABS 509216 MODAFINIL Inactive FUROSEMIDE 40 MG TABS 1 by mouth daily FU ROSEMIDE 40 MG TABS 093178 FUROSEMIDE Inactive KLOR-CON 20 MEQ PACK Take one by mouth daily 8 KLOR-CON 20 MEQ PACK 756355 POTASSIUM CHLORIDE Inactive LISINOPRIL 5 MG TABS 1 by mouth every day LISINOPRIL 5 MG TABS 504350 LISINOPRIL Inactive COLCRYS 0.6 MG TABS 1 po q 6 hours prn gout pain 03/02 COLCRYS 0.6 MG TABS COLCHICINE Inactive JANUVIA 100 MG TABS 1/2 by mouth every day JANUVI A 100 MG TABS SITAGLIPTIN PHOSPHATE Inactive SIMVASTATIN 20 MG TABS 1 tab daily at bedtime SIMVASTATIN 20 MG TABS 797797 SIMVASTATIN Inactive COUMADIN 6 MG TABS 1 by mouth every other day COUMADIN 6 MG TABS 605718 WARFARIN SODIUM Inactive COUMADIN 5 MG TABS 1 by mouth every other day COUMADIN 5 MG TABS 695752 WARFARIN SODIUM Inactive LISINOPRIL 20 MG TABS 1 tab po at HS [place]OKI NOPRIL 20 MG TABS 428395 LISINOPRIL Inactive LISINOPRIL-HYDROCHLOROTHIAZIDE 20-12.5 MG TABS 1 tab by mouth da rocky LISINOPRIL-HYDROCHLOROTHIAZIDE 20-12.5 MG TABS 550325 LISINOPRIL-HYDROCHLOROTHIAZIDE Inactive POLYTRIM 50879-1.1 UNIT/ML-% SOLN 1 drop in affected e ye every 3 hours while awake x 7 days POLYTRIM 58238-1.1 UNIT/ML-% SOLN 11667 7 POLYMYXIN B-TRIMETHOPRIM Inactive COUMADIN 4 MG TABS 1 tablet daily COUMADIN 4 MG TABS 999185 WARFARIN SODIUM Inactive CLONIDINE HCL 0.1 MG TABS 1 po bid 7 days, then 1/2 tab po b id 7 days CLONIDINE HCL 0.1 MG TABS 189731 CLONIDINE HCL I nactive ALLOPURINOL 300 MG TABS Take 1 tablet by mouth daily 2 ALLOPURINOL 300 MG TABS 822696 ALLOPURINOL Inactive MECLIZINE HCL 25 MG TAB 1 po tid 3 days, then 1/2 tab tid 3 days MECLIZINE HCL 25 MG TAB 074832 MECLIZINE HCL Inactive LOVENOX 100 MG/ML SC SOLN One injection twice a day 09/15/15 LOVENOX 100 MG/ML SC SOLN 616441 ENOXAPARIN SODIUM Inactive Vital Signs Date Name [...] 10.3 mg/dL 2.6-7.2 sodium, serum 136 mmol/L 693-930 1768/07/25 potassium, serum 4.6 mmol/L 3.5-5.2 chloride, serum [...] Panel - Chemistry sodium, serum 137 mmol/L 558-471 0379/11/14 potassium, serum 4.4 mmol/L 3.5-5.2 chloride, serum [...] 8.0 % 4.3-6.0 cholesterol, serum 130 mg/dL 901-455 8512/11/14 triglyceride, serum, fasting 288 mg/dL 30-200 HDL cholesterol, serum 33 mg/dL 32-96 LDL cholesterol, serum 39 mg/dL 0-130 Lab Report: Comp. Metabolic Panel, HGBA1 C, Lipid Panel, Prothrombin Time - Chemistry sodium, serum 136 mmol/L 697-159 4182/12/02 potassium, serum 4.4 mmol/L 3.5-5.2 chloride, serum [...] 7.6 % 4.3-6.0 cholesterol, serum 117 mg/dL 377-356 9259/12/02 triglyceride, serum, fasting 226 mg/dL 30-200 HDL [...] 1.0-3.5 Encounters Code Encounter Date Provider Facility CPT-33653 Level 3 Est. Patient 17:01:00 TRANSIT POLICE OFFICER Mitch luis [facility] CPT-45720 Level 3 Est. Patient 13:53:19 TRANSIT POLICE OFFICER Mitch luis [facility] CPT-98668 Level 3 Est. Patient 19:19:37 TRANSIT POLICE OFFICER Mitch luis [facility] CPT-45537 Level 3 Est. Patient 13:25:53 TRANSIT POLICE OFFICER Tavo toure MD [facility] CPT-93556 Level 3 Est. Patient 18:17:28 CDT Mitch luis [facility] CPT-27981 Level 3 Est. Patient 15:22:57 CDT Mitch luis [facility] CPT-48558 Level 3 Est. Patient 18:21:50 CDT Mitch luis [facility] CPT-35815 Level 3 Est. Patient 18:20:38 CDT Mitch luis [facility] CPT-72206 Level 3 Est. Patient 15:37:55 CDT Mitch Castellano ee [facility] CPT-61895 Level 2 Est. Patient 15:54:44 CDT Carmine benton MD [facility] CPT-86274 Level 3 Est. 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 Patient 22:15:50 CDT Mitch Castellano janelle [facility] CPT-57915 Level 3 Est. Patient 10:48:15 CDT Mitch Arnol luis [facility] CPT-11677 Level 3 Est. Patient 23:20:57 CDT Tavo toure MD [facility] CPT-50429 Level 3 Est. Patient 16:26:13 CDT Mitch Castellano janelle [facility] Procedures Code Procedure Name Date Entry Date Standard Desc ription CPT-18466 Venipuncture Draw Fee 10:13:28 [employer]IT [employer]ICE OFFICER CPT-54326 Venipuncture Draw Fee 08:31:11 CDT CPT-08214 Aspir/Inject Med Joint 18:17:28 CDT CPT-03457 Venipuncture Draw Fee 10:13:30 CDT CPT-27153 Venipuncture Draw Fee 08:31:43 TRANSIT [employer]ICE OFFICER CPT-JTINJ Joint Injection 18:34:50 CDT CPT-68699 Knee 3V 12:25:09 CDT CPT-64154 Venipuncture Draw Fee 12:15:57 CDT CPT-060 Medical Surveillance Exam 21:31:43 CDT 2011 CPT-36342 Venipuncture Draw Fee 08:32:05 [employer]ANSIT [employer]ICE OFFICER CPT-OV Office Visit 18:19:06 CDT
--- OUTSIDE RECORDS SUMMARY | 2020-01-18 12:35 | XMS REPORT | Clinical Summary ---
Author Author Admin, Mitch Leon Organization [facility] Address Unknown Phone Allergies, Adverse Reactions, Alerts [...] Coronary atherosclerosis of unspecified type of vessel, [place] or graft EDEMA 782.3 Active Mitch Kilpatrick [...] 1/2 tab tid 3 days MECLIZINE HCL 76524805873 No Longer Active Corey SEGURA Active ALLOPURINOL 300 MG TABS Take 1 tablet by mouth daily 2 ALLOPURINOL 72717961555 No Longer Active Corey SEGURA Activ e CLONIDINE HCL 0.1 MG TABS 1 po bid 7 days, then 1/2 tab po b id 7 days CLONIDINE HCL 53762809412 No Longer Active Corey SEGURA Active COUMADIN 5 MG TABS 1 tab PO daily WARFARIN SODIUM 63704008407 Active Mitch Urbina DO Active COUMADIN 4 MG TABS 1 tablet daily WARFARIN SODI UM 35281384864 No Longer Active Corey SEGURA Active POLYTRIM 59823-6.1 UNIT/ML-% SOLN 1 drop in affected e ye every 3 hours while awake x 7 days POLYMYXIN B-TRIMETHOPRIM 70137537148 N o Longer Active Corey SEGURA Active LOSARTAN POTASSIUM-HCTZ 100-12.5 MG TABS 1 by mouth da [place] for high blood pressure LOSARTAN POTASSIUM-HCTZ 60753053135 Active Stephy Urbina DO Active LISINOPRIL-HYDROCHLOROTHIAZIDE 20-12.5 MG TABS 1 tab by mouth da rocky LISINOPRIL-HYDROCHLOROTHIAZIDE 39080211503 No Longer Active Mitch luis DO Active LISINOPRIL 20 MG TABS 1 tab po at HS LISINOPRIL 47801752450 No Longer Active Mitch Urbina DO Active COUMADIN 5 MG TABS 1 by mouth every other day WARFARIN SODIUM 76783186409 No Longer Active Mitch Urbina DO Active COUMADIN 6 MG TABS 1 by mouth every other day WARFARIN SODIUM 85826154370 No Longer Active Mitch Urbina DO Active COLCRYS 0.6 MG TABS 1 tab qid prn gout COLCHICINE 59929739896 Active Mitch Urbina DO Active SIMVASTATIN 40 MG TABS 1 tab daily at bedtime S IMVASTATIN 18379551877 Active Mitch Urbina DO Active SIMVASTATIN 20 MG TABS 1 tab daily at bedtime S IMVASTATIN 53593278695 No Longer Active Mitch Urbina DO Active LOVENOX 100 MG/ML SC SOLN One injection twice a day 09/15/15 ENOXAPARIN SODIUM 00877488166 No Longer Active Carmine Navarrete ctive JANUVIA 50 MG TABS Take one by mouth daily DIEGO GLIPTIN PHOSPHATE 26881364787 Active Mitch Urbina DO Active JANUVIA 100 MG TABS 1/2 by mouth every day DIEGO GLIPTIN PHOSPHATE 51029258027 No Longer Active Bijal Philipp RN Active METFORMIN HCL 500 MG TABS 2 by mouth twice daily METFORMIN HCL 52478304767 Active Curly Coker MD Active GLIMEPIRIDE 4 MG TABS 1 tab po bid GLIMEPIRIDE 002854 29612 Active Mitch Urbina DO Active COLCRYS 0.6 MG TABS 1 po q 6 hours prn gout pain 03/02 COLCHICINE 27788788099 No Longer Active Camila [place] Active LISINOPRIL 5 MG TABS 1 by mouth every day LISIN OPRIL 57626051454 No Longer Active Nguyenmolly Perez Active KLOR-CON 20 MEQ PACK Take one by mouth daily POTASSIUM CHLORIDE 55510566026 No Longer Active Nguyenmolly Perez Active FUROSEMIDE 40 MG TABS 1 by mouth daily FUROSEMI DE 24951172022 No Longer Active Nguyen Perez Active PROVIGIL 200 MG TABS 1/2 tab po q day MODAFINIL 59173 019126 Active Mitch Urbina DO Active PROVIGIL 100 MG TABS Take one by mouth daily MO DAFINIL 46563068799 No Longer Active Mitch Urbina DO Active BACTRIM DS 800-160 MG TAB 1 tab by mouth twice daily TRIMETHOPRIM-SULFAMETHOXAZOLE 02193959248 No Longer Active Renan Hays MD Active FAMOTIDINE 20 MG TABS by mouth twice a day FAMOTI DINE 85501037269 Active Mitch Urbina DO Active ADULT ASPIRIN LOW STRENGTH 81 MG TBDP 1 by mouth every daily ASPIRIN 06446058313 Active Mitch Urbina DO Active METOPROLOL TARTRATE 50 MG TABS 1 by mouth twice daily METOPROLOL TARTRATE 29166943202 Active Mitch Urbina DO Active BACTRIM DS 800-160 MG TAB 1 tab by mouth twice daily 2 BACTRIM DS 800-160 MG TAB TRIMETHOPRIM-SULFAMETHOXAZOLE Inac tive PROVIGIL 100 MG TABS Take one by mouth daily 4 PROVIGIL 100 MG TABS 851134 MODAFINIL Inactive FUROSEMIDE 40 MG TABS 1 by mouth daily FU ROSEMIDE 40 MG TABS 041188 FUROSEMIDE Inactive KLOR-CON 20 MEQ PACK Take one by mouth daily 8 KLOR-CON 20 MEQ PACK 190748 POTASSIUM CHLORIDE Inactive LISINOPRIL 5 MG TABS 1 by mouth every day LISINOPRIL 5 MG TABS 124872 LISINOPRIL Inactive COLCRYS 0.6 MG TABS 1 po q 6 hours prn gout pain 03/02 COLCRYS 0.6 MG TABS COLCHICINE Inactive JANUVIA 100 MG TABS 1/2 by mouth every day JANUVI A 100 MG TABS SITAGLIPTIN PHOSPHATE Inactive SIMVASTATIN 20 MG TABS 1 tab daily at bedtime SIMVASTATIN 20 MG TABS 033854 SIMVASTATIN Inactive COUMADIN 6 MG TABS 1 by mouth every other day COUMADIN 6 MG TABS 768670 WARFARIN SODIUM Inactive COUMADIN 5 MG TABS 1 by mouth every other day COUMADIN 5 MG TABS 150858 WARFARIN SODIUM Inactive LISINOPRIL 20 MG TABS 1 tab po at HS KOKI NOPRIL 20 MG TABS 679223 LISINOPRIL Inactive LISINOPRIL-HYDROCHLOROTHIAZIDE 20-12.5 MG TABS 1 tab by mouth da rocky LISINOPRIL-HYDROCHLOROTHIAZIDE 20-12.5 MG TABS 844232 LISINOPRIL-HYDROCHLOROTHIAZIDE Inactive POLYTRIM 43237-0.1 UNIT/ML-% SOLN 1 drop in affected e ye every 3 hours while awake x 7 days POLYTRIM 95396-8.1 UNIT/ML-% SOLN 89370 7 POLYMYXIN B-TRIMETHOPRIM Inactive COUMADIN 4 MG TABS 1 tablet daily COUMADIN 4 MG TABS 717753 WARFARIN SODIUM Inactive CLONIDINE HCL 0.1 MG TABS 1 po bid 7 days, then 1/2 tab po b id 7 days CLONIDINE HCL 0.1 MG TABS 513225 CLONIDINE HCL I nactive ALLOPURINOL 300 MG TABS Take 1 tablet by mouth daily 2 ALLOPURINOL 300 MG TABS 551488 ALLOPURINOL Inactive MECLIZINE HCL 25 MG TAB 1 po tid 3 days, then 1/2 tab tid 3 days MECLIZINE HCL 25 MG TAB 205048 MECLIZINE HCL Inactive LOVENOX 100 MG/ML SC SOLN One injection twice a day 09/15/15 LOVENOX 100 MG/ML SC SOLN 277452 ENOXAPARIN SODIUM Inactive Vital Signs Date Name [...] 6.9 % 4.3-6.0 cholesterol, serum 108 mg/dL 621-330 9269/11/01 triglyceride, serum, fasting 112 mg/dL 30-200 HDL [...] 1.0-3.5 Encounters Code Encounter Date Provider Facility CPT-43565 Level 3 Est. Patient 13:53:19 TRAVELING CLERK Mitch luis [facility] CPT-05391 Level 3 Est. Patient 19:19:37 TRAVELING CLERK Mitch W Nona luis [facility] CPT-49806 Level 3 Est. Patient 13:25:53 TRAVELING CLERK Tavo tuore MD [facility]-17905 Level 3 Est. Patient 18:17:28 CDT Mitch luis [facility] CPT-60581 Level 3 Est. Patient 15:22:57 CDT Mitch W L janelle [facility] CPT-20788 Level 3 Est. Patient 18:21:50 CDT Mitch W L janelle [facility] CPT-37372 Level 3 Est. Patient 18:20:38 CDT Mitch W L janelle [facility]-03300 Level 3 Est. Patient 15:37:55 CDT Mitch W L janelle [facility] CPT-17486 Level 2 Est. Patient 15:54:44 CDT Carmine benton MD [facility] CPT-02983 Level 3 Est. Patient 21:46:01 TRAVELING CLERK Mitch luis [facility] CPT-24180 Level 3 Est. Patient 22:15:50 CDT Mitch luis [facility] CPT-32265 Level 3 Est. Patient 10:48:15 CDT Mitch luis [facility] CPT-73744 Level 3 Est. Patient 23:20:57 CDT Tavo toure MD [facility] CPT-71349 Level 3 Est. Patient 16:26:13 CDT Mitch luis [facility] Procedures Code Procedure Name Date Entry Date Standard Desc ription CPT-74830 Venipuncture Draw Fee 10:13:28 TRAVELING CLERK CPT-13730 Venipuncture Draw Fee 08:31:11 CDT CPT-47664 Aspir/Inject Med Joint 18:17:28 CDT CPT-98205 Venipuncture Draw Fee 10:13:30 CDT CPT-12195 Venipuncture Draw Fee 08:31:43 TRAVELING CLERK CPT-JTINJ Joint Injection 18:34:50 CDT CPT-92626 Knee 3V 12:25:09 CDT CPT-90832 Venipuncture Draw Fee 12:15:57 CDT CPT-060 Medical Surveillance Exam 21:31:43 CDT 2011 CPT-05806 Venipuncture Draw Fee 08:32:05 TRAVELING CLERK CPT-OV Office Visit 18:19:06 CDT
--- OUTSIDE RECORDS SUMMARY | 2020-01-18 12:35 | XMS REPORT | Clinical Summary ---
Author Author Admin, Mitch Leon Organization [facility] Address Unknown Phone Allergies, Adverse [...] Coronary atherosclerosis of unspecified type of vessel, [place] or graft EDEMA 782.3 Active Mitch Kilpatrick [...] 1/2 tab tid 3 days MECLIZINE HCL 65815734217 No Longer Active Corey SEGURA Active ALLOPURINOL 300 MG TABS Take 1 tablet by mouth daily 2 ALLOPURINOL 00523185121 No Longer Active Corey SEGURA Activ e CLONIDINE HCL 0.1 MG TABS 1 po bid 7 days, then 1/2 tab po b id 7 days CLONIDINE HCL 67377199307 No Longer Active Corey SEGURA Active COUMADIN 5 MG TABS 1 tab PO daily WARFARIN SODIUM 58379058185 Active Mitch Urbina DO Active COUMADIN 4 MG TABS 1 tablet daily WARFARIN SODI UM 88517110267 No Longer Active Corey SEGURA Active POLYTRIM 42261-8.1 UNIT/ML-% SOLN 1 drop in affected e ye every 3 hours while awake x 7 days POLYMYXIN B-TRIMETHOPRIM 93393360230 N o Longer Active Corey SEGURA Active LOSARTAN POTASSIUM-HCTZ 100-12.5 MG TABS 1 by mouth da rocky for high blood pressure LOSARTAN POTASSIUM-HCTZ 76996174313 Active Stephy Urbina DO Active LISINOPRIL-HYDROCHLOROTHIAZIDE 20-12.5 MG TABS 1 tab by mouth da rocky LISINOPRIL-HYDROCHLOROTHIAZIDE 03466701784 No Longer Active Mitch luis DO Active LISINOPRIL 20 MG TABS 1 tab po at HS LISINOPRIL 43591611493 No Longer Active Mitch Urbina DO Active COUMADIN 5 MG TABS 1 by mouth every other day WARFARIN SODIUM 75363963023 No Longer Active Mitch Urbina DO Active COUMADIN 6 MG TABS 1 by mouth every other day WARFARIN SODIUM 45529554421 No Longer Active Mitch Urbina DO Active COLCRYS 0.6 MG TABS 1 tab qid prn gout COLCHICINE 90520404997 Active Mitch Urbina DO Active SIMVASTATIN 40 MG TABS 1 tab daily at bedtime S IMVASTATIN 08108196060 Active Mitch Urbina DO Active SIMVASTATIN 20 MG TABS 1 tab daily at bedtime S IMVASTATIN 85905577884 No Longer Active Mitch Urbina DO Active LOVENOX 100 MG/ML SC SOLN One injection twice a day 09/15/15 ENOXAPARIN SODIUM 54912508808 No Longer Active Carmine Navarrete ctive JANUVIA 50 MG TABS Take one by mouth daily DIEGO GLIPTIN PHOSPHATE 32425706641 Active Mitch Urbina DO Active JANUVIA 100 MG TABS 1/2 by mouth every day DIEGO GLIPTIN PHOSPHATE 03988126433 No Longer Active Bijal Philipp RN Active METFORMIN HCL 500 MG TABS 2 by mouth twice daily METFORMIN HCL 95261599497 Active Curly Coker MD Active GLIMEPIRIDE 4 MG TABS 1 tab po bid GLIMEPIRIDE 227079 74689 Active Mitch Urbina DO Active COLCRYS 0.6 MG TABS 1 po q 6 hours prn gout pain 03/02 COLCHICINE 19430081302 No Longer Active Camila [place] Active LISINOPRIL 5 MG TABS 1 by mouth every day LISIN OPRIL 28189429355 No Longer Active Nguyenmolly Preez Active KLOR-CON 20 MEQ PACK Take one by mouth daily POTASSIUM CHLORIDE 90783347476 No Longer Active Nguyenmolly Perez Active FUROSEMIDE 40 MG TABS 1 by mouth daily FUROSEMI DE 79882120969 No Longer Active Nguyen Perez Active PROVIGIL 200 MG TABS 1/2 tab po q day MODAFINIL 63871 819493 Active Mitch Urbina DO Active PROVIGIL 100 MG TABS Take one by mouth daily MO DAFINIL 55050442996 No Longer Active Mitch Urbina DO Active BACTRIM DS 800-160 MG TAB 1 tab by mouth twice daily TRIMETHOPRIM-SULFAMETHOXAZOLE 36316074710 No Longer Active Renan Hays MD Active FAMOTIDINE 20 MG TABS by mouth twice a day FAMOTI DINE 70634149737 Active Mitch Urbina DO Active ADULT ASPIRIN LOW STRENGTH 81 MG TBDP 1 by mouth every daily ASPIRIN 85538225625 Active Mitch Urbina DO Active METOPROLOL TARTRATE 50 MG TABS 1 by mouth twice daily METOPROLOL TARTRATE 88920175896 Active Mitch Urbina DO Active BACTRIM DS 800-160 MG TAB 1 tab by mouth twice daily 2 BACTRIM DS 800-160 MG TAB TRIMETHOPRIM-SULFAMETHOXAZOLE Inac tive PROVIGIL 100 MG TABS Take one by mouth daily 4 PROVIGIL 100 MG TABS 887668 MODAFINIL Inactive FUROSEMIDE 40 MG TABS 1 by mouth daily FU ROSEMIDE 40 MG TABS 659183 FUROSEMIDE Inactive KLOR-CON 20 MEQ PACK Take one by mouth daily 8 KLOR-CON 20 MEQ PACK 923434 POTASSIUM CHLORIDE Inactive LISINOPRIL 5 MG TABS 1 by mouth every day LISINOPRIL 5 MG TABS 223453 LISINOPRIL Inactive COLCRYS 0.6 MG TABS 1 po q 6 hours prn gout pain 03/02 COLCRYS 0.6 MG TABS COLCHICINE Inactive JANUVIA 100 MG TABS 1/2 by mouth every day JANUVI A 100 MG TABS SITAGLIPTIN PHOSPHATE Inactive SIMVASTATIN 20 MG TABS 1 tab daily at bedtime SIMVASTATIN 20 MG TABS 325444 SIMVASTATIN Inactive COUMADIN 6 MG TABS 1 by mouth every other day COUMADIN 6 MG TABS 767003 WARFARIN SODIUM Inactive COUMADIN 5 MG TABS 1 by mouth every other day COUMADIN 5 MG TABS 029204 WARFARIN SODIUM Inactive LISINOPRIL 20 MG TABS 1 tab po at HS KOKI NOPRIL 20 MG TABS 513068 LISINOPRIL Inactive LISINOPRIL-HYDROCHLOROTHIAZIDE 20-12.5 MG TABS 1 tab by mouth da rocky LISINOPRIL-HYDROCHLOROTHIAZIDE 20-12.5 MG TABS 118266 LISINOPRIL-HYDROCHLOROTHIAZIDE Inactive POLYTRIM 52939-6.1 UNIT/ML-% SOLN 1 drop in affected e ye every 3 hours while awake x 7 days POLYTRIM 29394-8.1 UNIT/ML-% SOLN 75588 7 POLYMYXIN B-TRIMETHOPRIM Inactive COUMADIN 4 MG TABS 1 tablet daily COUMADIN 4 MG TABS 895111 WARFARIN SODIUM Inactive CLONIDINE HCL 0.1 MG TABS 1 po bid 7 days, then 1/2 tab po b id 7 days CLONIDINE HCL 0.1 MG TABS 062980 CLONIDINE HCL I nactive ALLOPURINOL 300 MG TABS Take 1 tablet by mouth daily 2 ALLOPURINOL 300 MG TABS 656615 ALLOPURINOL Inactive MECLIZINE HCL 25 MG TAB 1 po tid 3 days, then 1/2 tab tid 3 days MECLIZINE HCL 25 MG TAB 401763 MECLIZINE HCL Inactive LOVENOX 100 MG/ML SC SOLN One injection twice a day 09/15/15 LOVENOX 100 MG/ML SC SOLN 298449 ENOXAPARIN SODIUM Inactive Vital Signs Date Name [...] - 3141-9 237 [lb_av] Weigh t Measured blood pressure, diastolic - 8462-4 91 mm[Hg] BP mane blood pressure, systolic - 8480-6 200 mm[Hg] BP sys height E&M - 8302-2 70 [in_us] Bdy h eight pulse rate E&M - 8867-4 80 /min H eart rate temperature E&M 98.1 [degF] Body temp erature weight E&M - 3141-9 246.25 [lb_av] Weigh t Measured Diagnostic Results Date [...] 6.9 % 4.3-6.0 cholesterol, serum 108 mg/dL 024-685 9358/11/01 triglyceride, serum, fasting 112 mg/dL 30-200 HDL [...] Time - Coagulati on prothrombin time (patient) 16.8 SECS s 11.1-13.4 international normalized ratio (INR) 1.9 1.0-3.5 prothrombin time (patient) 20.7 SECS s 11.4-12.8 international normalized ratio (INR) 2.8 1.0-3.5 prothrombin time (patient) 15.6 SECS s 11.4-12.8 international normalized ratio (INR) 1.6 1.0-3.5 prothrombin time (patient) 17.8 SECS s 11.4-12.8 international normalized ratio (INR) 2.1 1.0-3.5 prothrombin time (patient) 19.9 SECS s 11.4-12.8 international normalized ratio (INR) 2.6 1.0-3.5 prothrombin time (patient) 18.9 SECS s 11.4-12.8 international normalized ratio (INR) 2.4 1.0-3.5 Encounters Code Encounter Date Provider Facility CPT-86137 Level 3 Est. Patient 13:53:19 SALESPERSON HOUSE[employer]PLIANCES Mitch luis [facility] CPT-16654 Level 3 Est. Patient 19:19:37 SALESPERSON HOU[employer] APPLIANCES Mitch W L ee [facility] CPT-56866 Level 3 Est. Patient 13:25:53 SALESPERSON HOUSEHOLD APPLIANCES Tavo toure MD [facility] CPT-09851 Level 3 Est. Patient 18:17:28 CDT Mitch Arnol luis [facility] CPT-44063 Level 3 Est. Patient 15:22:57 CDT Mitch luis [facility] CPT-29420 Level 3 Est. Patient 18:21:50 CDT Mitch luis [facility] CPT-57929 Level 3 Est. Patient 18:20:38 CDT Mitch luis [facility] CPT-06987 Level 3 Est. Patient 15:37:55 CDT Mitch luis [facility] CPT-59042 Level 2 Est. Patient 15:54:44 CDT Carmine benton MD [facility] CPT-32261 Level 3 Est. Patient 21:46:01 SALESPERSON [employer]PLI[employer]ES Mitch luis [facility] CPT-57275 Level 3 Est. Patient 22:15:50 CDT Mitch luis [facility] CPT-27824 Level 3 Est. Patient 10:48:15 CDT Mitch luis [facility] CPT-21167 Level 3 Est. Patient 23:20:57 CDT Tavo toure MD [facility] CPT-36682 Level 3 Est. Patient 16:26:13 CDT Mitch luis [facility] Procedures Code Procedure Name Date Entry Date Standard Desc ription CPT-72894 Venipuncture Draw Fee 10:13:28 [employer] CPT-10019 Venipuncture Draw Fee 08:31:11 CDT CPT-83073 Aspir/Inject Med Joint 18:17:28 CDT CPT-40374 Venipuncture Draw Fee 10:13:30 CDT CPT-70347 Venipuncture Draw Fee 08:31:43 [employer]ESPERSON [employer] CPT-JTINJ Joint Injection 18:34:50 CDT CPT-45882 Knee 3V 12:25:09 CDT CPT-05495 Venipuncture Draw Fee 12:15:57 CDT CPT-060 Medical Surveillance Exam 21:31:43 CDT 2011 CPT-84063 Venipuncture Draw Fee 08:32:05 SALESPERSON [employer] CPT-OV Office Visit 18:19:06 CDT
--- OUTSIDE RECORDS SUMMARY | 2020-01-18 12:35 | XMS REPORT | Clinical Summary ---
Author Author Admin, Mitch Leon Organization [facility] Address Unknown Phone Unavailable Allergies, Adverse Reactions, Alerts Allergy Name Reaction Description Start Date Severity Status Pr ovider PENICILLIN HIVES Critical Active Mitch rUbina DO Conditions or Problems Problem Name Problem [...] Coronary atherosclerosis of unspecified type of vessel, [place] or graft EDEMA 782.3 Resolved Mitch Urbina [...] 1 hour if symptoms persist. COLCHICINE 59 509022614 Active Mitch Urbina DO Active COUMADIN 1 MG TAB 2 tabs orally daily with the 5mg tab to equal 7mg daily WARFARIN SODIUM 11467666790 Active Mitch Urbina DO Active COLCRYS 0.6 MG TABS 1 tab qid prn gout COLCHICINE 17904707792 Active Norma Cazares Active INVOKANA 100 MG ORAL TABS 1 tablet orally daily CANAGLIFLOZIN 19568517359 Active Mitch Urbina DO Active MINOXIDIL 2.5 MG TABS 1 tablet daily for high blood pressure 10/23 MINOXIDIL 54647413896 Active Ana Wallace Active AMLODIPINE BESYLATE 5 MG TABS 1 tablet by mouth daily AMLODIPINE BESYLATE 24103350917 Active Mitch Urbina DO Active MECLIZINE HCL 25 MG TAB 1 po tid 3 days, then 1/2 tab tid 3 days MECLIZINE HCL 44835186455 No Longer Active Corey SEGURA Active ALLOPURINOL 300 MG TABS Take 1 tablet by mouth daily 2 ALLOPURINOL 29885435303 No Longer Active Corey SEGURA Activ e CLONIDINE HCL 0.1 MG TABS 1 po bid 7 days, then 1/2 tab po b id 7 days CLONIDINE HCL 18255641940 No Longer Active Corey SEGURA Active COUMADIN 5 MG TABS 1 tab PO daily WARFARIN SODIUM 97505673611 Active Mitch Urbina DO Active COUMADIN 4 MG TABS 1 tablet daily WARFARIN SODI UM 67530055352 No Longer Active Corey SEGURA Active POLYTRIM 26422-8.1 UNIT/ML-% SOLN 1 drop in affected e ye every 3 hours while awake x 7 days POLYMYXIN B-TRIMETHOPRIM 15641508644 N o Longer Active Corey SEGURA Active LOSARTAN POTASSIUM-HCTZ 100-12.5 MG TABS 1 by mouth [place] for high blood pressure LOSARTAN POTASSIUM-HCTZ 61185031633 Active Stephy Urbina DO Active LISINOPRIL-HYDROCHLOROTHIAZIDE 20-12.5 MG TABS 1 tab by mouth da rocky LISINOPRIL-HYDROCHLOROTHIAZIDE 15109005910 No Longer Active Mitch luis DO Active LISINOPRIL 20 MG TABS 1 tab po at HS LISINOPRIL 42203662195 No Longer Active Mitch Urbina DO Active COUMADIN 5 MG TABS 1 by mouth every other day WARFARIN SODIUM 00490117176 No Longer Active Mitch W [place] DO Active COUMADIN 6 MG TABS 1 by mouth every other day WARFARIN SODIUM 23584909892 No Longer Active Mitch Urbina DO Active SIMVASTATIN 40 MG TABS 1 tab daily at bedtime S IMVASTATIN 19060749960 Active Mitch Urbina DO Active SIMVASTATIN 20 MG TABS 1 tab daily at bedtime S IMVASTATIN 11929399135 No Longer Active Mitch Urbina DO Active LOVENOX 100 MG/ML SC SOLN One injection twice a day 09/15/15 ENOXAPARIN SODIUM 65825387213 No Longer Active Carmine Navarrete ctive JANUVIA 50 MG TABS Take one by mouth daily DIEGO GLIPTIN PHOSPHATE 80496776509 Active Mitch Urbina DO Active JANUVIA 100 MG TABS 1/2 by mouth every day DIEGO GLIPTIN PHOSPHATE 67501166361 No Longer Active Bijal Segal RN Active METFORMIN HCL 500 MG TABS 2 by mouth twice daily METFORMIN HCL 30908769093 Active Mitch Urbina DO Active GLIMEPIRIDE 4 MG TABS 1 tab po bid GLIMEPIRIDE 959232 19658 Active Mitch Arnol Carl[place] DO Active COLCRYS 0.6 MG TABS 1 po q 6 hours prn gout pain 03/02 COLCHICINE 37355535606 No Longer Active Camila Reese Active LISINOPRIL 5 MG TABS 1 by mouth every day LISIN OPRIL 44606546402 No Longer Active Nguyenmolly Perez Active KLOR-CON 20 MEQ PACK Take one by mouth daily 8 POTASSIUM CHLORIDE 32138188059 No Longer Active Nguyenmolly Perez Active FUROSEMIDE 40 MG TABS 1 by mouth daily FUROSEMI DE 74384178092 No Longer Active Nguyenmolly Perez Active PROVIGIL 200 MG TABS 1/2 tab po q day MODAFINIL 73580 231373 Active Kathie Juan RPT,RMA Active PROVIGIL 100 MG TABS Take one by mouth daily MO DAFINIL 68586422519 No Longer Active Mitch Urbina DO Active BACTRIM DS 800-160 MG TAB 1 tab by mouth twice daily 2 TRIMETHOPRIM-SULFAMETHOXAZOLE 30188397958 No Longer Active Renan Hays MD Active FAMOTIDINE 20 MG TABS by mouth twice a day FAMOTI DINE 03927293170 Active Mitch Urbina DO Active ADULT ASPIRIN LOW STRENGTH 81 MG TBDP 1 by mouth every daily ASPIRIN 27883328926 Active Mitch Urbina DO Active METOPROLOL TARTRATE 50 MG TABS 1 by mouth twice daily METOPROLOL TARTRATE 76737810292 Active Mitch Urbina DO Active BACTRIM DS 800-160 MG TAB 1 tab by mouth twice daily 2 BACTRIM DS 800-160 MG TAB 852371 TRIMETHOPRIM-SULFAMETHOXAZOLE Inac tive PROVIGIL 100 MG TABS Take one by mouth daily 4 PROVIGIL 100 MG TABS 384219 MODAFINIL Inactive FUROSEMIDE 40 MG TABS 1 by mouth daily FU ROSEMIDE 40 MG TABS 552059 FUROSEMIDE Inactive KLOR-CON 20 MEQ PACK Take one by mouth daily 8 KLOR-CON 20 MEQ PACK 749593 POTASSIUM CHLORIDE Inactive LISINOPRIL 5 MG TABS 1 by mouth every day LISINOPRIL 5 MG TABS 504779 LISINOPRIL Inactive COLCRYS 0.6 MG TABS 1 po q 6 hours prn gout pain 03/02 COLCRYS 0.6 MG TABS 927743 COLCHICINE Inactive JANUVIA 100 MG TABS 1/2 by mouth every day JANUVI A 100 MG TABS SITAGLIPTIN PHOSPHATE Inactive SIMVASTATIN 20 MG TABS 1 tab daily at bedtime SIMVASTATIN 20 MG TABS 525884 SIMVASTATIN Inactive COUMADIN 6 MG TABS 1 by mouth every other day COUMADIN 6 MG TABS 044082 WARFARIN SODIUM Inactive COUMADIN 5 MG TABS 1 by mouth every other day COUMADIN 5 MG TABS 950375 WARFARIN SODIUM Inactive LISINOPRIL 20 MG TABS 1 tab po at HS KOKI NOPRIL 20 MG TABS 430796 LISINOPRIL Inactive LISINOPRIL-HYDROCHLOROTHIAZIDE 20-12.5 MG TABS 1 tab by mouth da rocky LISINOPRIL-HYDROCHLOROTHIAZIDE 20-12.5 MG TABS 055696 LISINOPRIL-HYDROCHLOROTHIAZIDE Inactive POLYTRIM 61158-0.1 UNIT/ML-% SOLN 1 drop in affected e ye every 3 hours while awake x 7 days POLYTRIM 07728-2.1 UNIT/ML-% SOLN 99388 7 POLYMYXIN B-TRIMETHOPRIM Inactive COUMADIN 4 MG TABS 1 tablet daily COUMADIN 4 MG TABS 298936 WARFARIN SODIUM Inactive CLONIDINE HCL 0.1 MG TABS 1 po bid 7 days, then 1/2 tab po b id 7 days CLONIDINE HCL 0.1 MG TABS 386379 CLONIDINE HCL I nactive ALLOPURINOL 300 MG TABS Take 1 tablet by mouth daily 2 ALLOPURINOL 300 MG TABS 984492 ALLOPURINOL Inactive MECLIZINE HCL 25 MG TAB 1 po tid 3 days, then 1/2 tab tid 3 days MECLIZINE HCL 25 MG TAB 747840 MECLIZINE HCL Inactive LOVENOX 100 MG/ML SC SOLN One injection twice a day 09/15/15 LOVENOX 100 MG/ML SC SOLN 829490 ENOXAPARIN SODIUM Inactive Vital Signs Date Name [...] Description Chart Maintenance: hemoccult added to fl robertt - Chemistry occult blood, stool (E&M) Positive Lab Report: HGBA1C - Chemistry hemoglobin A1C, blood, as % of total hemoglobin 6.6 % 4.3-6.0 Lab Report: Lipid Panel, HEPATIC PANEL, MICROALB/CREAT W/RATIO, HGBA1C, CBC - Chemistry cholesterol, serum 136 mg/dL 445-802 1554/08/09 triglyceride, serum, fasting 187 mg/dL 30-200 HDL [...] ratio (INR) 1.8 1.0-3.5 prothrombin time (patient) 17.8 SECS s [...] 11.1-13.4 Encounters Code Encounter Date Provider Facility CPT-09886 Level 3 Est. Patient 14:21:06 CDT Mitch luis [facility] CPT-45751 Level 3 Est. Patient 14:52:06 [facility] 3 Est. Patient 09:34:30 DRIVER HELPER Mitch Ambrose L janelle [facility] CPT-48733 Level 3 Est. Patient 09:37:15 CDT Mitch W L ee [facility] CPT-00161 Level 3 Est. Patient 17:01:00 DRIVER HELPER Mitch W L janelle [facility] CPT-02040 Level 3 Est. Patient 13:53:19 DRIVER HELPER Mitch W L janelle [facility] CPT-80366 Level 3 Est. Patient 19:19:37 DRIVER HELPER Mitch W L janelle [facility] CPT-96041 Level 3 Est. Patient 13:25:53 DRIVER HELPER Tavo toure MD [facility] CPT-04362 Level 3 Est. Patient 18:17:28 CDT Mitch W L janelle [facility] CPT-19782 Level 3 Est. Patient 15:22:57 CDT Mitch W L janelle [facility] CPT-86711 Level 3 Est. Patient 18:21:50 CDT Mitch W L janelle [facility] CPT-01439 Level 3 Est. Patient 18:20:38 CDT Mitch W L ee [facility] CPT-54070 Level 3 Est. Patient 15:37:55 CDT Mitch W L ee [facility] CPT-65249 Level 2 Est. Patient 15:54:44 CDT Carmine benton MD [facility]-15287 Level 3 Est. Patient 21:46:01 DRIVER HELPER Mitch luis [facility] CPT-17893 Level 3 Est. Patient 22:15:50 CDT Mitch luis DO [facility] CPT-44610 Level 3 Est. Patient 10:48:15 CDT Mitch luis DO [facility] CPT-67038 Level 3 Est. Patient 23:20:57 CDT Tavo toure MD [facility] CPT-92926 Level 3 Est. Patient 16:26:13 CDT Mitch luis [facility] Procedures Code Procedure Name Date Entry Date Standard Desc ription CPT-13453 PT/INR - LAB USE ONLY 13:32:49 DRIVER HELPER CPT-69473 Venipuncture Draw Fee 13:32:49 DRIVER HELPER CPT-76766 PT/INR - LAB USE ONLY 10:34:49 DRIVER HELPER CPT-40292 Venipuncture Draw Fee 10:34:48 DRIVER HELPER CPT-59376 PT/INR - LAB USE ONLY 09:22:03 DRIVER HELPER CPT-78668 Venipuncture Draw Fee 09:22:02 DRIVER HELPER CPT-68618 Hemoccult IFOBT - LAB USE ONLY 10:27:22 CDT CPT-92036 Venipuncture Draw Fee 08:27:08 CDT CPT-93232 Liver Profile - LAB USE ONLY 08:27:07 CDT 2 CPT-25921 Microalbumin - LAB USE ONLY 08:27:07 CDT 20 25/05/09 CPT-15958 PT/INR - LAB USE ONLY 08:27:07 CDT CPT-35449 HGBA1C - LAB USE ONLY 08:27:07 CDT CPT-35247 CBC - LAB USE ONLY 08:27:07 CDT CPT-07652 Venipuncture Draw Fee 11:09:14 CDT CPT-95189 Venipuncture Draw Fee 08:32:21 DRIVER HELPER CPT-82744 Venipuncture Draw Fee 09:38:56 DRIVER HELPER CPT-51357 No Charge Offi Visit 21:36:07 CDT 1 CPT-24378 Venipuncture Draw Fee 10:13:28 DRIVER HELPER CPT-13209 Venipuncture Draw Fee 08:31:11 CDT CPT-32887 Aspir/Inject Med Joint 18:17:28 CDT CPT-66686 Venipuncture Draw Fee 10:13:30 CDT CPT-97889 Venipuncture Draw Fee 08:31:43 DRIVER HELPER CPT-JTINJ Joint Injection 18:34:50 CDT CPT-77682 Knee 3V 12:25:09 CDT CPT-12970 Venipuncture Draw Fee 12:15:57 CDT CPT-060 Medical Surveillance Exam 21:31:43 CDT 2011 CPT-88182 Venipuncture Draw Fee 08:32:05 DRIVER HELPER CPT-OV Office Visit 18:19:06 CDT
--- OUTSIDE RECORDS SUMMARY | 2020-01-18 12:35 | XMS REPORT | Clinical Summary ---
Author Author Admin, Mitch Leon Organization [facility] Address Unknown Phone Allergies, Adverse Reactions, Alerts [...] Coronary atherosclerosis of unspecified type of vessel, [place] or graft EDEMA 782.3 Active Mitch Kilpatrick [...] 1/2 tab tid 3 days MECLIZINE HCL 98568843365 No Longer Active Corey SEGURA Active ALLOPURINOL 300 MG TABS Take 1 tablet by mouth daily 2 ALLOPURINOL 77012315187 No Longer Active Corey SEGURA Activ e CLONIDINE HCL 0.1 MG TABS 1 po bid 7 days, then 1/2 tab po b id 7 days CLONIDINE HCL 44439041699 No Longer Active Corey SEGURA Active COUMADIN 5 MG TABS 1 tab PO daily WARFARIN SODIUM 85919114936 Active Mitch Urbina DO Active COUMADIN 4 MG TABS 1 tablet daily WARFARIN SODI UM 77487553599 No Longer Active Corey SEGURA Active POLYTRIM 27686-2.1 UNIT/ML-% SOLN 1 drop in affected e ye every 3 hours while awake x 7 days POLYMYXIN B-TRIMETHOPRIM 37262173122 N o Longer Active Corey SEGURA Active LOSARTAN POTASSIUM-HCTZ 100-12.5 MG TABS 1 by mouth da rocky for high blood pressure LOSARTAN POTASSIUM-HCTZ 86146279399 Active Stephy Urbina DO Active LISINOPRIL-HYDROCHLOROTHIAZIDE 20-12.5 MG TABS 1 tab by mouth da rocky LISINOPRIL-HYDROCHLOROTHIAZIDE 24748894867 No Longer Active Mitch luis DO Active LISINOPRIL 20 MG TABS 1 tab po at HS LISINOPRIL 50087066511 No Longer Active Mitch Urbina DO Active COUMADIN 5 MG TABS 1 by mouth every other day WARFARIN SODIUM 30839838897 No Longer Active Mitch Urbina DO Active COUMADIN 6 MG TABS 1 by mouth every other day WARFARIN SODIUM 78664367151 No Longer Active Mitch Urbina DO Active COLCRYS 0.6 MG TABS 1 tab qid prn gout COLCHICINE 05301384010 Active Mitch Urbina DO Active SIMVASTATIN 40 MG TABS 1 tab daily at bedtime S IMVASTATIN 25418534968 Active Mitch Urbina DO Active SIMVASTATIN 20 MG TABS 1 tab daily at bedtime S IMVASTATIN 44846723357 No Longer Active Mitch Urbina DO Active LOVENOX 100 MG/ML SC SOLN One injection twice a day 09/15/15 ENOXAPARIN SODIUM 22746795310 No Longer Active Carmine Navarrete ctive JANUVIA 50 MG TABS Take one by mouth daily DIEGO GLIPTIN PHOSPHATE 44590095415 Active Mitch Urbina DO Active JANUVIA 100 MG TABS 1/2 by mouth every day DIEGO GLIPTIN PHOSPHATE 48726533466 No Longer Active Bijal Philipp RN Active METFORMIN HCL 500 MG TABS 2 by mouth twice daily METFORMIN HCL 01219855098 Active Curly Coker MD Active GLIMEPIRIDE 4 MG TABS 1 tab po bid GLIMEPIRIDE 872868 69335 Active Mitch Urbina DO Active COLCRYS 0.6 MG TABS 1 po q 6 hours prn gout pain 03/02 COLCHICINE 96999035870 No Longer Active Camila Hugh Active LISINOPRIL 5 MG TABS 1 by mouth every day LISIN OPRIL 50510153859 No Longer Active Nguyenmolly Perez Active KLOR-CON 20 MEQ PACK Take one by mouth daily 8 POTASSIUM CHLORIDE 85097856248 No Longer Active Nguyen Perez Active FUROSEMIDE 40 MG TABS 1 by mouth daily FUROSEMI DE 91800011842 No Longer Active Nguyen Perez Active PROVIGIL 200 MG TABS 1/2 tab po q day MODAFINIL 71714 562411 Active Mitch Urbina DO Active PROVIGIL 100 MG TABS Take one by mouth daily MO DAFINIL 28466331744 No Longer Active Mitch Urbina DO Active BACTRIM DS 800-160 MG TAB 1 tab by mouth twice daily TRIMETHOPRIM-SULFAMETHOXAZOLE 73011560609 No Longer Active Renan Hays MD Active FAMOTIDINE 20 MG TABS by mouth twice a day FAMOTI DINE 76878225443 Active Mitch Urbina DO Active ADULT ASPIRIN LOW STRENGTH 81 MG TBDP 1 by mouth every daily ASPIRIN 76497641057 Active Mitch Urbina DO Active METOPROLOL TARTRATE 50 MG TABS 1 by mouth twice daily METOPROLOL TARTRATE 62615957390 Active Mitch Urbina DO Active BACTRIM DS 800-160 MG TAB 1 tab by mouth twice daily 2 BACTRIM DS 800-160 MG TAB TRIMETHOPRIM-SULFAMETHOXAZOLE Inac tive PROVIGIL 100 MG TABS Take one by mouth daily 4 PROVIGIL 100 MG TABS 931523 MODAFINIL Inactive FUROSEMIDE 40 MG TABS 1 by mouth daily FU ROSEMIDE 40 MG TABS 437508 FUROSEMIDE Inactive KLOR-CON 20 MEQ PACK Take one by mouth daily 8 KLOR-CON 20 MEQ PACK 381926 POTASSIUM CHLORIDE Inactive LISINOPRIL 5 MG TABS 1 by mouth every day LISINOPRIL 5 MG TABS 075495 LISINOPRIL Inactive COLCRYS 0.6 MG TABS 1 po q 6 hours prn gout pain 03/02 COLCRYS 0.6 MG TABS COLCHICINE Inactive JANUVIA 100 MG TABS 1/2 by mouth every day JANUVI A 100 MG TABS SITAGLIPTIN PHOSPHATE Inactive SIMVASTATIN 20 MG TABS 1 tab daily at bedtime SIMVASTATIN 20 MG TABS 088361 SIMVASTATIN Inactive COUMADIN 6 MG TABS 1 by mouth every other day COUMADIN 6 MG TABS 785380 WARFARIN SODIUM Inactive COUMADIN 5 MG TABS 1 by mouth every other day COUMADIN 5 MG TABS 978119 WARFARIN SODIUM Inactive LISINOPRIL 20 MG TABS 1 tab po at HS KOKI NOPRIL 20 MG TABS 292651 LISINOPRIL Inactive LISINOPRIL-HYDROCHLOROTHIAZIDE 20-12.5 MG TABS 1 tab by mouth da rocky LISINOPRIL-HYDROCHLOROTHIAZIDE 20-12.5 MG TABS 260292 LISINOPRIL-HYDROCHLOROTHIAZIDE Inactive POLYTRIM 99148-5.1 UNIT/ML-% SOLN 1 drop in affected e ye every 3 hours while awake x 7 days POLYTRIM 53887-2.1 UNIT/ML-% SOLN 67706 7 POLYMYXIN B-TRIMETHOPRIM Inactive COUMADIN 4 MG TABS 1 tablet daily COUMADIN 4 MG TABS 381780 WARFARIN SODIUM Inactive CLONIDINE HCL 0.1 MG TABS 1 po bid 7 days, then 1/2 tab po b id 7 days CLONIDINE HCL 0.1 MG TABS 335362 CLONIDINE HCL I nactive ALLOPURINOL 300 MG TABS Take 1 tablet by mouth daily 2 ALLOPURINOL 300 MG TABS 401018 ALLOPURINOL Inactive MECLIZINE HCL 25 MG TAB 1 po tid 3 days, then 1/2 tab tid 3 days MECLIZINE HCL 25 MG TAB 942579 MECLIZINE HCL Inactive LOVENOX 100 MG/ML SC SOLN One injection twice a day 09/15/15 LOVENOX 100 MG/ML SC SOLN 468685 ENOXAPARIN SODIUM Inactive Vital Signs Date Name [...] 6.9 % 4.3-6.0 cholesterol, serum 108 mg/dL 731-318 3839/11/01 triglyceride, serum, fasting 112 mg/dL 30-200 HDL [...] 1.0-3.5 Encounters Code Encounter Date Provider Facility CPT-50340 Level 3 Est. Patient 13:53:19 MOTORBIKE COURIER Mitch luis [facility] CPT-54341 Level 3 Est. Patient 19:19:37 MOTORBIKE COURIER Mitch W Nona luis [facility] CPT-17509 Level 3 Est. Patient 13:25:53 MOTORBIKE COURIER Tavo toure MD [facility] CPT-29287 Level 3 Est. Patient 18:17:28 CDT Mitch luis [facility] CPT-28574 Level 3 Est. Patient 15:22:57 CDT Mitch W L janelle [facility] CPT-03388 Level 3 Est. Patient 18:21:50 CDT Mitch W L janelle [facility] CPT-29293 Level 3 Est. Patient 18:20:38 CDT Mitch W L janelle [facility] CPT-92927 Level 3 Est. Patient 15:37:55 CDT Mitch W L janelle [facility] CPT-13626 Level 2 Est. Patient 15:54:44 CDT Carmine benton MD [facility] CPT-64532 Level 3 Est. Patient 21:46:01 MOTORBIKE COURIER Mitch luis [facility] CPT-83932 Level 3 Est. Patient 22:15:50 CDT Mitch luis [facility] CPT-21062 Level 3 Est. Patient 10:48:15 CDT Mitch luis [facility] CPT-57873 Level 3 Est. Patient 23:20:57 CDT Tavo toure MD [facility] CPT-94247 Level 3 Est. Patient 16:26:13 CDT Mitch luis [facility] Procedures Code Procedure Name Date Entry Date Standard Desc ription CPT-38910 Venipuncture Draw Fee 10:13:28 MOTORBIKE COURIER CPT-90021 Venipuncture Draw Fee 08:31:11 CDT CPT-27820 Aspir/Inject Med Joint 18:17:28 CDT CPT-63017 Venipuncture Draw Fee 10:13:30 CDT CPT-48682 Venipuncture Draw Fee 08:31:43 MOTORBIKE COURIER CPT-JTINJ Joint Injection 18:34:50 CDT CPT-63023 Knee 3V 12:25:09 CDT CPT-48319 Venipuncture Draw Fee 12:15:57 CDT CPT-060 Medical Surveillance Exam 21:31:43 CDT 2011 CPT-74758 Venipuncture Draw Fee 08:32:05 MOTORBIKE COURIER CPT-OV Office Visit 18:19:06 CDT
--- OUTSIDE RECORDS SUMMARY | 2020-01-18 12:36 | XMS REPORT | Clinical Summary ---
Author Author Admin, Mitch Leon Organization [facility] Address Unknown Phone Allergies, Adverse Reactions, Alerts [...] Coronary atherosclerosis of unspecified type of vessel, [place] or graft EDEMA 782.3 Active Mitch Kilpatrick [...] 1/2 tab tid 3 days MECLIZINE HCL 28762484959 No Longer Active Corey SEGURA Active ALLOPURINOL 300 MG TABS Take 1 tablet by mouth daily 2 ALLOPURINOL 99715629857 No Longer Active Corey SEGURA Activ e CLONIDINE HCL 0.1 MG TABS 1 po bid 7 days, then 1/2 tab po b id 7 days CLONIDINE HCL 09077699126 No Longer Active Corey SEGURA Active COUMADIN 5 MG TABS 1 tab PO daily WARFARIN SODIUM 44967372170 Active Mitch Urbina DO Active COUMADIN 4 MG TABS 1 tablet daily WARFARIN SODI UM 66013483362 No Longer Active Corey SEGURA Active POLYTRIM 21724-3.1 UNIT/ML-% SOLN 1 drop in affected e ye every 3 hours while awake x 7 days POLYMYXIN B-TRIMETHOPRIM 98925546626 N o Longer Active Corey SEGURA Active LOSARTAN POTASSIUM-HCTZ 100-12.5 MG TABS 1 by mouth da rocky for high blood pressure LOSARTAN POTASSIUM-HCTZ 87656787115 Active Stephy Urbina DO Active LISINOPRIL-HYDROCHLOROTHIAZIDE 20-12.5 MG TABS 1 tab by mouth da rocky LISINOPRIL-HYDROCHLOROTHIAZIDE 65604447675 No Longer Active Mitch luis DO Active LISINOPRIL 20 MG TABS 1 tab po at HS LISINOPRIL 36940095696 No Longer Active Mitch Urbina DO Active COUMADIN 5 MG TABS 1 by mouth every other day WARFARIN SODIUM 39870042922 No Longer Active Mitch Urbina DO Active COUMADIN 6 MG TABS 1 by mouth every other day WARFARIN SODIUM 28718566672 No Longer Active Mitch Urbina DO Active COLCRYS 0.6 MG TABS 1 tab qid prn gout COLCHICINE 02026403874 Active Mitch Urbina DO Active SIMVASTATIN 40 MG TABS 1 tab daily at bedtime S IMVASTATIN 51202805186 Active Mitch Urbina DO Active SIMVASTATIN 20 MG TABS 1 tab daily at bedtime S IMVASTATIN 03974321058 No Longer Active Mitch Urbina DO Active LOVENOX 100 MG/ML SC SOLN One injection twice a day 09/15/15 ENOXAPARIN SODIUM 97548808167 No Longer Active Carmine Navarrete ctive JANUVIA 50 MG TABS Take one by mouth daily DIEGO GLIPTIN PHOSPHATE 37822619629 Active Mitch Urbina DO Active JANUVIA 100 MG TABS 1/2 by mouth every day DIEGO GLIPTIN PHOSPHATE 72114501441 No Longer Active Bijalseth Segal RN Active METFORMIN HCL 500 MG TABS 2 by mouth twice daily METFORMIN HCL 26851230342 Active Curly Coker MD Active GLIMEPIRIDE 4 MG TABS 1 tab po bid GLIMEPIRIDE 075792 89880 Active Mitch Urbina DO Active COLCRYS 0.6 MG TABS 1 po q 6 hours prn gout pain 03/02 COLCHICINE 34615276297 No Longer Active Camila [place] Active LISINOPRIL 5 MG TABS 1 by mouth every day LISIN OPRIL 11679144717 No Longer Active Nguyenmolly Perez Active KLOR-CON 20 MEQ PACK Take one by mouth daily 8 POTASSIUM CHLORIDE 08966775575 No Longer Active Nguyenmolly Perez Active FUROSEMIDE 40 MG TABS 1 by mouth daily FUROSEMI DE 03486358262 No Longer Active Nguyen Perez Active PROVIGIL 200 MG TABS 1/2 tab po q day MODAFINIL 43022 327338 Active Mitch Urbina DO Active PROVIGIL 100 MG TABS Take one by mouth daily MO DAFINIL 07879805062 No Longer Active Mitch Urbina DO Active BACTRIM DS 800-160 MG TAB 1 tab by mouth twice daily 2 TRIMETHOPRIM-SULFAMETHOXAZOLE 64164133253 No Longer Active Renan Hays MD Active FAMOTIDINE 20 MG TABS by mouth twice a day FAMOTI DINE 47385686008 Active Mitch Urbina DO Active ADULT ASPIRIN LOW STRENGTH 81 MG TBDP 1 by mouth every daily ASPIRIN 89822815103 Active Mitch Urbina DO Active METOPROLOL TARTRATE 50 MG TABS 1 by mouth twice daily METOPROLOL TARTRATE 04459304695 Active Mitch Urbina DO Active BACTRIM DS 800-160 MG TAB 1 tab by mouth twice daily 2 BACTRIM DS 800-160 MG TAB TRIMETHOPRIM-SULFAMETHOXAZOLE Inac tive PROVIGIL 100 MG TABS Take one by mouth daily 4 PROVIGIL 100 MG TABS 250693 MODAFINIL Inactive FUROSEMIDE 40 MG TABS 1 by mouth daily FU ROSEMIDE 40 MG TABS 308595 FUROSEMIDE Inactive KLOR-CON 20 MEQ PACK Take one by mouth daily 8 KLOR-CON 20 MEQ PACK 185090 POTASSIUM CHLORIDE Inactive LISINOPRIL 5 MG TABS 1 by mouth every day LISINOPRIL 5 MG TABS 798620 LISINOPRIL Inactive COLCRYS 0.6 MG TABS 1 po q 6 hours prn gout pain 03/02 COLCRYS 0.6 MG TABS COLCHICINE Inactive JANUVIA 100 MG TABS 1/2 by mouth every day JANUVI A 100 MG TABS SITAGLIPTIN PHOSPHATE Inactive SIMVASTATIN 20 MG TABS 1 tab daily at bedtime SIMVASTATIN 20 MG TABS 727978 SIMVASTATIN Inactive COUMADIN 6 MG TABS 1 by mouth every other day COUMADIN 6 MG TABS 122183 WARFARIN SODIUM Inactive COUMADIN 5 MG TABS 1 by mouth every other day COUMADIN 5 MG TABS 834309 WARFARIN SODIUM Inactive LISINOPRIL 20 MG TABS 1 tab po at HS KOKI NOPRIL 20 MG TABS 436210 LISINOPRIL Inactive LISINOPRIL-HYDROCHLOROTHIAZIDE 20-12.5 MG TABS 1 tab by mouth da rocky LISINOPRIL-HYDROCHLOROTHIAZIDE 20-12.5 MG TABS 711492 LISINOPRIL-HYDROCHLOROTHIAZIDE Inactive POLYTRIM 45939-2.1 UNIT/ML-% SOLN 1 drop in affected e ye every 3 hours while awake x 7 days POLYTRIM 08883-6.1 UNIT/ML-% SOLN 62867 7 POLYMYXIN B-TRIMETHOPRIM Inactive COUMADIN 4 MG TABS 1 tablet daily COUMADIN 4 MG TABS 073299 WARFARIN SODIUM Inactive CLONIDINE HCL 0.1 MG TABS 1 po bid 7 days, then 1/2 tab po b id 7 days CLONIDINE HCL 0.1 MG TABS 397447 CLONIDINE HCL I nactive ALLOPURINOL 300 MG TABS Take 1 tablet by mouth daily 2 ALLOPURINOL 300 MG TABS 128894 ALLOPURINOL Inactive MECLIZINE HCL 25 MG TAB 1 po tid 3 days, then 1/2 tab tid 3 days MECLIZINE HCL 25 MG TAB 159402 MECLIZINE HCL Inactive LOVENOX 100 MG/ML SC SOLN One injection twice a day 09/15/15 LOVENOX 100 MG/ML SC SOLN 050632 ENOXAPARIN SODIUM Inactive Vital Signs Date Name [...] Coa gulation coagulation managed by Mitch Urbina coagulation managed by Mitch Urbina DO international normalized ratio (INR) coagulation managed by Mitch Urbina DO international normalized ratio (INR) coagulation managed by Camila Reese international normalized ratio (INR) coagulation managed by Mitch Urbina international normalized ratio (INR) international normalized ratio (INR) international normalized ratio (INR) coagulation managed by Mitch Urbina DO international normalized ratio (INR) Lab Report: CBC, HGBA1C, Lipid Panel - C hemistry hemoglobin A1C, blood, as % of total hemoglobin 6.9 % 4.3-6.0 cholesterol, serum 108 mg/dL 832-809 0748/11/01 triglyceride, serum, fasting 112 mg/dL 30-200 HDL cholesterol, serum 32 mg/dL 32-96 LDL cholesterol, serum 54 mg/dL 0-130 Lab Report: CBC, HGBA1C, Lipid Panel - H ematology hematocrit, blood 30.5 % 41.0-53.0 mean corpuscular volume, RBC 92 fL 80-97 mean corpuscular hemoglobin, RBC 29.2 pg 27. 0-31.2 mean corpuscular hemoglobin concentration, RBC 31.9 G/DL % 31.8-35.4 red blood cell distribution width 16.0 % 11 .6-14.8 platelet count 374 10^3/MM^3 10*3/mm3 345-024 7137/11/01 erythrocyte (RBC) count 3.33 10^6/MM^3 10*6/mm3 4.69-6.1 3 hemoglobin, blood 9.7 g/dL 13.5-17.5 leukocyte count, blood 7.0 10^3/MM^3 10*3/mm3 4.6-10.2 Lab Report: HGBA1C - Chemistry hemoglobin A1C, blood, as % of total hemoglobin 6.5 % 4.3-6.0 Lab Report: Prothrombin Time - Coagulati on prothrombin time (patient) 16.8 SECS s 11.1-13.4 international normalized ratio (INR) 1.9 1.0-3.5 prothrombin time (patient) 18.4 SECS s 11.1-13.4 international normalized ratio (INR) 2.2 1.0-3.5 prothrombin time (patient) 18.9 SECS s 11.4-12.8 international normalized ratio (INR) 2.4 1.0-3.5 prothrombin time (patient) 19.9 SECS s 11.4-12.8 international normalized ratio (INR) 2.6 1.0-3.5 prothrombin time (patient) 15.6 SECS s 11.4-12.8 international normalized ratio (INR) 1.6 1.0-3.5 international normalized ratio (INR) 2.8 1.0-3.5 prothrombin time (patient) 20.7 SECS s 11.4-12.8 prothrombin time (patient) 17.8 SECS s 11.4-12.8 international normalized ratio (INR) 2.1 1.0-3.5 Encounters Code Encounter Date Provider Facility CPT-72097 Level 3 Est. Patient 13:53:19 RUG WASHER Mitch luis [facility] CPT-04600 Level 3 Est. Patient 19:19:37 RUG WASHER Mitch luis [facility] CPT-07739 Level 3 Est. Patient 13:25:53 RUG WASHER Tavo toure MD [facility] CPT-04799 Level 3 Est. Patient 18:17:28 CDT Mitch luis [facility] CPT-28236 Level 3 Est. Patient 15:22:57 CDT Mitch luis [facility] CPT-71916 Level 3 Est. Patient 18:21:50 CDT Mitch luis [facility] CPT-00024 Level 3 Est. Patient 18:20:38 CDT Mitch luis [facility] CPT-42689 Level 3 Est. Patient 15:37:55 CDT Mitch luis [facility] CPT-82850 Level 2 Est. Patient 15:54:44 CDT Carmine benton MD [facility] CPT-22313 Level 3 Est. Patient 21:46:01 RUG WASHER Mitch luis [facility] CPT-81461 Level 3 Est. Patient 22:15:50 CDT Mitch luis [facility] CPT-62913 Level 3 Est. Patient 10:48:15 CDT Mitch luis [facility] CPT-76527 Level 3 Est. Patient 23:20:57 CDT Tavo toure MD [facility] CPT-71790 Level 3 Est. Patient 16:26:13 CDT Mitch luis [facility] Procedures Code Procedure Name Date Entry Date Standard Desc ription CPT-52957 Venipuncture Draw Fee 10:13:28 RUG WASHER CPT-17903 Venipuncture Draw Fee 08:31:11 CDT CPT-85138 Aspir/Inject Med Joint 18:17:28 CDT CPT-46794 Venipuncture Draw Fee 10:13:30 CDT CPT-36066 Venipuncture Draw Fee 08:31:43 RUG WASHER CPT-JTINJ Joint Injection 18:34:50 CDT CPT-83540 Knee 3V 12:25:09 CDT CPT-46065 Venipuncture Draw Fee 12:15:57 CDT CPT-060 Medical Surveillance Exam 21:31:43 CDT 2011 CPT-84341 Venipuncture Draw Fee 08:32:05 RUG WASHER CPT-OV Office Visit 18:19:06 CDT
--- OUTSIDE RECORDS SUMMARY | 2020-01-18 12:36 | XMS REPORT | Clinical Summary ---
[...] [place] or graft EDEMA 782.3 Active Mitch [...] 1 tablet by mouth daily AMLODIPINE BESYLATE 38585998394 Active Mitch Urbina DO Active MECLIZINE HCL 25 MG TAB 1 po tid 3 days, then 1/2 tab tid 3 days MECLIZINE HCL 53429656497 No Longer Active Corey SEGURA Active ALLOPURINOL 300 MG TABS Take 1 tablet by mouth daily 2 ALLOPURINOL 30946250856 No Longer Active Corey SEGURA Activ e CLONIDINE HCL 0.1 MG TABS 1 po bid 7 days, then 1/2 tab po b id 7 days CLONIDINE HCL 29361579732 No Longer Active Corey SEGURA Active COUMADIN 5 MG TABS 1 tab PO daily WARFARIN SODIUM 57117147957 Active Mitch Urbina DO Active COUMADIN 4 MG TABS 1 tablet daily WARFARIN SODI UM 49724934838 No Longer Active Corey SEGURA Active POLYTRIM 44205-1.1 UNIT/ML-% SOLN 1 drop in affected e ye every 3 hours while awake x 7 days POLYMYXIN B-TRIMETHOPRIM 70763932632 N o Longer Active Corey SEGURA Active LOSARTAN POTASSIUM-HCTZ 100-12.5 MG TABS 1 by mouth da rocky for high blood pressure LOSARTAN POTASSIUM-HCTZ 38677146737 Active Stephy Urbina DO Active LISINOPRIL-HYDROCHLOROTHIAZIDE 20-12.5 MG TABS 1 tab by mouth da rocky LISINOPRIL-HYDROCHLOROTHIAZIDE 00443387696 No Longer Active Mitch luis DO Active LISINOPRIL 20 MG TABS 1 tab po at HS LISINOPRIL 45762281019 No Longer Active Mitch Urbina DO Active COUMADIN 5 MG TABS 1 by mouth every other day WARFARIN SODIUM 98627801307 No Longer Active Mitch Urbina DO Active COUMADIN 6 MG TABS 1 by mouth every other day WARFARIN SODIUM 09700875236 No Longer Active Mitch Urbina DO Active COLCRYS 0.6 MG TABS 1 tab qid prn gout COLCHICINE 93915969547 Active Mitch Urbina DO Active SIMVASTATIN 40 MG TABS 1 tab daily at bedtime S IMVASTATIN 70576607704 Active Mitch Urbina DO Active SIMVASTATIN 20 MG TABS 1 tab daily at bedtime S IMVASTATIN 42032347190 No Longer Active Mitch Urbina DO Active LOVENOX 100 MG/ML SC SOLN One injection twice a day 09/15/15 ENOXAPARIN SODIUM 48478817114 No Longer Active Carmine Navarrete ctive JANUVIA 50 MG TABS Take one by mouth daily DIEGO GLIPTIN PHOSPHATE 19389166020 Active Mitch Urbina DO Active JANUVIA 100 MG TABS 1/2 by mouth every day DIEGO GLIPTIN PHOSPHATE 38615234919 No Longer Active Bijal Philipp RN Active METFORMIN HCL 500 MG TABS 2 by mouth twice daily METFORMIN HCL 98880422463 Active Mitch Urbina DO Active GLIMEPIRIDE 4 MG TABS 1 tab po bid GLIMEPIRIDE 138582 76810 Active Mitch Urbina DO Active COLCRYS 0.6 MG TABS 1 po q 6 hours prn gout pain 03/02 COLCHICINE 28178278867 No Longer Active Camila Reese Active LISINOPRIL 5 MG TABS 1 by mouth every day LISIN OPRIL 88257892741 No Longer Active Nguyen Perez Active KLOR-CON 20 MEQ PACK Take one by mouth daily 8 POTASSIUM CHLORIDE 99724936738 No Longer Active Nguyen Perez Active FUROSEMIDE 40 MG TABS 1 by mouth daily FUROSEMI DE 70656630766 No Longer Active Nguyen Perez Active PROVIGIL 200 MG TABS 1/2 tab po q day MODAFINIL 52444 950919 Active Mitch Urbina DO Active PROVIGIL 100 MG TABS Take one by mouth daily MO DAFINIL 41361111668 No Longer Active Mitch Urbina DO Active BACTRIM DS 800-160 MG TAB 1 tab by mouth twice daily 2 TRIMETHOPRIM-SULFAMETHOXAZOLE 84813000762 No Longer Active Renan Hays MD Active FAMOTIDINE 20 MG TABS by mouth twice a day FAMOTI DINE 56207664619 Active Mitch Urbina DO Active ADULT ASPIRIN LOW STRENGTH 81 MG TBDP 1 by mouth every daily ASPIRIN 08387267582 Active Mitch Urbina DO Active METOPROLOL TARTRATE 50 MG TABS 1 by mouth twice daily METOPROLOL TARTRATE 70756094577 Active Mitch W Carlitos DO Active BACTRIM DS 800-160 MG TAB 1 tab by mouth twice daily 2 BACTRIM DS 800-160 MG TAB TRIMETHOPRIM-SULFAMETHOXAZOLE Inac tive PROVIGIL 100 MG TABS Take one by mouth daily 4 PROVIGIL 100 MG TABS 438682 MODAFINIL Inactive FUROSEMIDE 40 MG TABS 1 by mouth daily FU ROSEMIDE 40 MG TABS 891781 FUROSEMIDE Inactive KLOR-CON 20 MEQ PACK Take one by mouth daily 8 KLOR-CON 20 MEQ PACK 452526 POTASSIUM CHLORIDE Inactive LISINOPRIL 5 MG TABS 1 by mouth every day LISINOPRIL 5 MG TABS 699392 LISINOPRIL Inactive COLCRYS 0.6 MG TABS 1 po q 6 hours prn gout pain 03/02 COLCRYS 0.6 MG TABS COLCHICINE Inactive JANUVIA 100 MG TABS 1/2 by mouth every day JANUVI A 100 MG TABS SITAGLIPTIN PHOSPHATE Inactive SIMVASTATIN 20 MG TABS 1 tab daily at bedtime SIMVASTATIN 20 MG TABS 823295 SIMVASTATIN Inactive COUMADIN 6 MG TABS 1 by mouth every other day COUMADIN 6 MG TABS 378974 WARFARIN SODIUM Inactive COUMADIN 5 MG TABS 1 by mouth every other day COUMADIN 5 MG TABS 070103 WARFARIN SODIUM Inactive LISINOPRIL 20 MG TABS 1 tab po at HS KOKI NOPRIL 20 MG TABS 282018 LISINOPRIL Inactive LISINOPRIL-HYDROCHLOROTHIAZIDE 20-12.5 MG TABS 1 tab by mouth da rocky LISINOPRIL-HYDROCHLOROTHIAZIDE 20-12.5 MG TABS 684655 LISINOPRIL-HYDROCHLOROTHIAZIDE Inactive POLYTRIM 58317-8.1 UNIT/ML-% SOLN 1 drop in affected e ye every 3 hours while awake x 7 days POLYTRIM 79170-7.1 UNIT/ML-% SOLN 43323 7 POLYMYXIN B-TRIMETHOPRIM Inactive COUMADIN 4 MG TABS 1 tablet daily COUMADIN 4 MG TABS 915839 WARFARIN SODIUM Inactive CLONIDINE HCL 0.1 MG TABS 1 po bid 7 days, then 1/2 tab po b id 7 days CLONIDINE HCL 0.1 MG TABS 838626 CLONIDINE HCL I nactive ALLOPURINOL 300 MG TABS Take 1 tablet by mouth daily 2 ALLOPURINOL 300 MG TABS 947451 ALLOPURINOL Inactive MECLIZINE HCL 25 MG TAB 1 po tid 3 days, then 1/2 tab tid 3 days MECLIZINE HCL 25 MG TAB 599449 MECLIZINE HCL Inactive LOVENOX 100 MG/ML SC SOLN One injection twice a day 09/15/15 LOVENOX 100 MG/ML SC SOLN 176394 ENOXAPARIN SODIUM Inactive Vital Signs Date Name [...] 10.3 mg/dL 2.6-7.2 sodium, serum 136 mmol/L 727-630 3035/07/25 potassium, serum 4.6 mmol/L 3.5-5.2 chloride, serum [...] Panel, HGBA1C, MICROALBUMIN, Uric Acid - Hematology erythrocyte (RBC) count 5.02 10^6/MM^3 10*6/mm3 4.69-6.1 3 hemoglobin, blood 12.8 g/dL 13.5-17.5 hematocrit, blood 40.1 % 41.0-53.0 mean corpuscular volume, RBC 80 fL 80-97 mean corpuscular hemoglobin, RBC 25.6 pg 27. 0-31.2 mean corpuscular hemoglobin concentration, RBC 32.0 G/DL % 31.8-35.4 red blood cell distribution width 18.3 % 11 .6-14.8 platelet count 277 10^3/MM^3 10*3/mm3 853-821 4693/07/25 leukocyte count, blood 6.6 10^3/MM^3 10*3/mm3 4.6-10.2 Lab Report: CBC, Comp. Metabolic Panel, HGBA1C, MICROALBUMIN, Uric Acid - Lab microalbumin, urine 30 0-19 Lab Report: Comp. Metabolic Panel, HGBA1 C, Lipid Panel - Chemistry carbon dioxide, venous blood 33.0 mmol/L 21.0-32 .0 aspartate aminotransferase (SGOT), serum 34 U/L 15-37 calcium, serum 10.4 mg/dL 8.5-10.1 bilirubin, serum, total 0.90 mg/dL 0.00-1.00 hemoglobin A1C, blood, as % of total hemoglobin 8.0 % 4.3-6.0 cholesterol, serum 130 mg/dL 935-122 3877/11/14 triglyceride, serum, fasting 288 mg/dL 30-200 HDL cholesterol, serum 33 mg/dL 32-96 LDL cholesterol, serum 39 mg/dL 0-130 blood glucose 181 mg/dL 65-110 urea nitrogen, blood 28 mg/dL 7-18 chloride, serum 100 mmol/L 98-107 potassium, serum 4.4 mmol/L 3.5-5.2 creatinine, serum 1.30 mg/dL 0.60-1.30 sodium, serum 137 mmol/L 485-065 0846/11/14 alanine aminotransferase (SGPT), serum 38 U/L 12-78 Lab Report: Comp. Metabolic Panel, HGBA1 C, Lipid Panel, Prothrombin Time - Chemistry sodium, serum 136 mmol/L 280-908 1104/12/02 potassium, serum 4.4 mmol/L 3.5-5.2 chloride, serum [...] 7.6 % 4.3-6.0 cholesterol, serum 117 mg/dL 883-618 4689/12/02 triglyceride, serum, fasting 226 mg/dL 30-200 HDL [...] (INR) 2.2 1.0-3.5 international normalized ratio (INR) 1.9 1.0-3.5 prothrombin time (patient) 16.8 SECS s 11.1-13.4 international normalized ratio (INR) 2.2 1.0-3.5 prothrombin time (patient) 18.4 SECS s 11.1-13.4 prothrombin time (patient) 19.9 SECS s 11.1-13.4 international normalized ratio (INR) 2.6 1.0-3.5 prothrombin time (patient) 16.0 SECS s 11.1-13.4 international normalized ratio (INR) 1.7 1.0-3.5 Encounters Code Encounter Date Provider Facility CPT-45936 Level 3 Est. Patient 17:01:00 SCOURER Mitch luis DO [facility] CPT-74499 Level 3 Est. Patient 13:53:19 SCOURER Mitch W L janelle DO [facility] CPT-60931 Level 3 Est. Patient 19:19:37 SCOURER Mitch W L janelle [facility] CPT-82793 Level 3 Est. Patient 13:25:53 SCOURER Tavo toure MD [facility] CPT-19266 Level 3 Est. Patient 18:17:28 CDT Mitch Ambrose L janelle [facility] CPT-49845 Level 3 Est. Patient 15:22:57 CDT Mitch W L janelle [facility] CPT-75439 Level 3 Est. Patient 18:21:50 CDT Mitch W L janelle [facility] CPT-78758 Level 3 Est. Patient 18:20:38 CDT Mitch W L janelle [facility] CPT-58605 Level 3 Est. Patient 15:37:55 CDT Mitch W L ee [facility] CPT-34343 Level 2 Est. Patient 15:54:44 CDT Carmine benton MD [facility]-46188 Level 3 Est. Patient 21:46:01 SCOURER Mitch W L janelle [facility] CPT-34258 Level 3 Est. Patient 22:15:50 CDT Mitch W L ee [facility] CPT-63349 Level 3 Est. Patient 10:48:15 CDT Mitch luis [facility] CPT-48170 Level 3 Est. Patient 23:20:57 CDT Tavo toure MD [facility] CPT-63679 Level 3 Est. Patient 16:26:13 CDT Mitch luis [facility] Procedures Code Procedure Name Date Entry Date Standard Desc ription CPT-98619 Venipuncture Draw Fee 10:13:28 SCOURER CPT-01778 Venipuncture Draw Fee 08:31:11 CDT CPT-78528 Aspir/Inject Med Joint 18:17:28 CDT CPT-69955 Venipuncture Draw Fee 10:13:30 CDT CPT-57491 Venipuncture Draw Fee 08:31:43 SCOURER CPT-JTINJ Joint Injection 18:34:50 CDT CPT-89289 Knee 3V 12:25:09 CDT CPT-61885 Venipuncture Draw Fee 12:15:57 CDT CPT-060 Medical Surveillance Exam 21:31:43 CDT 2011 CPT-58827 Venipuncture Draw Fee 08:32:05 SCOURER CPT-OV Office Visit 18:19:06 CDT
--- OUTSIDE RECORDS SUMMARY | 2020-01-18 12:36 | XMS REPORT | Clinical Summary ---
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 COLCHICINE 59 741798580 Active Mitch Urbina DO Active COUMADIN 1 MG TAB 2 tabs orally daily with the 5mg tab to equal 7mg daily WARFARIN SODIUM 31714395123 Active Mitch Urbina DO Active COLCRYS 0.6 MG TABS 1 tab qid prn gout COLCHICINE 85894310739 Active Norma Sage Active INVOKANA 100 MG ORAL TABS 1 tablet orally daily CANAGLIFLOZIN 95464882580 Active Mitch Urbina DO Active MINOXIDIL 2.5 MG TABS 1 tablet daily for high blood pressure 10/23 MINOXIDIL 10914837105 Active Mitch Urbina DO Active MECLIZINE HCL 25 MG TAB 1 po tid 3 days, then 1/2 tab tid 3 days MECLIZINE HCL 76505926094 No Longer Active Corey SEGURA Active ALLOPURINOL 300 MG TABS Take 1 tablet by mouth daily 2 ALLOPURINOL 47267867533 No Longer Active Corey SEGURA Activ e CLONIDINE HCL 0.1 MG TABS 1 po bid 7 days, then 1/2 tab po b id 7 days CLONIDINE HCL 68628057933 No Longer Active Corey SEGURA Active COUMADIN 5 MG TABS 1 tab PO daily WARFARIN SODIUM 30637952235 Active Mitch Urbina DO Active COUMADIN 4 MG TABS 1 tablet daily WARFARIN SODI UM 89841615488 No Longer Active Corey SEGURA Active POLYTRIM 88330-1.1 UNIT/ML-% SOLN 1 drop in affected e ye every 3 hours while awake x 7 days POLYMYXIN B-TRIMETHOPRIM 36792023819 N o Longer Active Corey SEGURA Active LOSARTAN POTASSIUM-HCTZ 100-12.5 MG TABS 1 by mouth [place] for high blood pressure LOSARTAN POTASSIUM-HCTZ 70118172380 Active Stephy Urbina DO Active LISINOPRIL-HYDROCHLOROTHIAZIDE 20-12.5 MG TABS 1 tab by mouth da rocky LISINOPRIL-HYDROCHLOROTHIAZIDE 57340400196 No Longer Active Mitch luis DO Active LISINOPRIL 20 MG TABS 1 tab po at HS LISINOPRIL 89793217088 No Longer Active Mitch Urbina DO Active COUMADIN 5 MG TABS 1 by mouth every other day WARFARIN SODIUM 06425910826 No Longer Active Mitch Urbina DO Active COUMADIN 6 MG TABS 1 by mouth every other day WARFARIN SODIUM 38226581675 No Longer Active Mitch Urbina DO Active SIMVASTATIN 40 MG TABS 1 tab daily at bedtime S IMVASTATIN 98292253152 Active Mitch Urbina DO Active SIMVASTATIN 20 MG TABS 1 tab daily at bedtime S IMVASTATIN 26606368414 No Longer Active Mitch Urbina DO Active LOVENOX 100 MG/ML SC SOLN One injection twice a day 09/15/15 ENOXAPARIN SODIUM 84685690919 No Longer Active Carmine Navarrete ctive JANUVIA 50 MG TABS Take one by mouth daily DIEGO GLIPTIN PHOSPHATE 30495318053 Active Mitch Urbina DO Active JANUVIA 100 MG TABS 1/2 by mouth every day DIEGO GLIPTIN PHOSPHATE 91772834025 No Longer Active Bijal Segal RN Active METFORMIN HCL 500 MG TABS 2 by mouth twice daily METFORMIN HCL 59166140146 Active Mitch Urbina DO Active GLIMEPIRIDE 4 MG TABS 1 tab po bid GLIMEPIRIDE 812268 90567 Active Mitch Urbina DO Active COLCRYS 0.6 MG TABS 1 po q 6 hours prn gout pain 03/02 COLCHICINE 54588416710 No Longer Active Camila Reese Active LISINOPRIL 5 MG TABS 1 by mouth every day LISIN OPRIL 67930686315 No Longer Active Nguyen Perez Active KLOR-CON 20 MEQ PACK Take one by mouth daily 8 POTASSIUM CHLORIDE 53156447941 No Longer Active Nguyen Perez Active FUROSEMIDE 40 MG TABS 1 by mouth daily FUROSEMI DE 25118023902 No Longer Active Nguyen Perez Active PROVIGIL 200 MG TABS 1/2 tab po q day MODAFINIL 91257 235565 Active Mitch Urbina DO Active PROVIGIL 100 MG TABS Take one by mouth daily MO DAFINIL 14176114413 No Longer Active Mitch Urbina DO Active BACTRIM DS 800-160 MG TAB 1 tab by mouth twice daily 2 TRIMETHOPRIM-SULFAMETHOXAZOLE 67799664955 No Longer Active Renan Hays MD Active FAMOTIDINE 20 MG TABS by mouth twice a day FAMOTI DINE 85578494694 Active Mitch Urbina DO Active ADULT ASPIRIN LOW STRENGTH 81 MG TBDP 1 by mouth every daily ASPIRIN 13923741451 Active Mitch Urbina DO Active METOPROLOL TARTRATE 50 MG TABS 1 by mouth twice daily METOPROLOL TARTRATE 28848779505 Active Mitch Urbina DO Active BACTRIM DS 800-160 MG TAB 1 tab by mouth twice daily 2 BACTRIM DS 800-160 MG TAB 596946 TRIMETHOPRIM-SULFAMETHOXAZOLE Inac tive PROVIGIL 100 MG TABS Take one by mouth daily 4 PROVIGIL 100 MG TABS 935196 MODAFINIL Inactive FUROSEMIDE 40 MG TABS 1 by mouth daily FU ROSEMIDE 40 MG TABS 797996 FUROSEMIDE Inactive KLOR-CON 20 MEQ PACK Take one by mouth daily 8 KLOR-CON 20 MEQ PACK 2754277 POTASSIUM CHLORIDE Inactive LISINOPRIL 5 MG TABS 1 by mouth every day LISINOPRIL 5 MG TABS 100548 LISINOPRIL Inactive COLCRYS 0.6 MG TABS 1 po q 6 hours prn gout pain 03/02 COLCRYS 0.6 MG TABS 840064 COLCHICINE Inactive JANUVIA 100 MG TABS 1/2 by mouth every day JANUVI A 100 MG TABS SITAGLIPTIN PHOSPHATE Inactive SIMVASTATIN 20 MG TABS 1 tab daily at bedtime SIMVASTATIN 20 MG TABS 989437 SIMVASTATIN Inactive COUMADIN 6 MG TABS 1 by mouth every other day COUMADIN 6 MG TABS 354835 WARFARIN SODIUM Inactive COUMADIN 5 MG TABS 1 by mouth every other day COUMADIN 5 MG TABS 129080 WARFARIN SODIUM Inactive LISINOPRIL 20 MG TABS 1 tab po at HS KOKI NOPRIL 20 MG TABS 521126 LISINOPRIL Inactive LISINOPRIL-HYDROCHLOROTHIAZIDE 20-12.5 MG TABS 1 tab by mouth da rocky LISINOPRIL-HYDROCHLOROTHIAZIDE 20-12.5 MG TABS 903293 LISINOPRIL-HYDROCHLOROTHIAZIDE Inactive POLYTRIM 04022-0.1 UNIT/ML-% SOLN 1 drop in affected e ye every 3 hours while awake x 7 days POLYTRIM 33730-5.1 UNIT/ML-% SOLN 21210 7 POLYMYXIN B-TRIMETHOPRIM Inactive COUMADIN 4 MG TABS 1 tablet daily COUMADIN 4 MG TABS 012959 WARFARIN SODIUM Inactive CLONIDINE HCL 0.1 MG TABS 1 po bid 7 days, then 1/2 tab po b id 7 days CLONIDINE HCL 0.1 MG TABS 393459 CLONIDINE HCL I nactive ALLOPURINOL 300 MG TABS Take 1 tablet by mouth daily 2 ALLOPURINOL 300 MG TABS 575235 ALLOPURINOL Inactive MECLIZINE HCL 25 MG TAB 1 po tid 3 days, then 1/2 tab tid 3 days MECLIZINE HCL 25 MG TAB 921146 MECLIZINE HCL Inactive AMLODIPINE BESYLATE 5 MG TABS 1 tablet by mouth daily AMLODIPINE BESYLATE 5 MG TABS 428403 AMLODIPINE BESYLATE Inactive LOVENOX 100 MG/ML SC SOLN One injection twice a day 09/15/15 LOVENOX 100 MG/ML SC SOLN 896232 ENOXAPARIN SODIUM Inactive Vital Signs Date Name [...] ... - Chemistry sodium, serum 144 mmol/L 601-596 8729/06/12 carbon dioxide, venous blood 26.6 mmol/L 21.0-32 [...] PANEL, MICROALB/CREAT W/RATIO, HGBA1C, CBC - Chemistry HDL cholesterol, serum 39 mg/dL 32-96 triglyceride, serum, fasting 187 mg/dL 30-200 LDL cholesterol, serum 60 mg/dL 0-130 aspartate [...] prothrombin time (patient) 15.4 SECS s 11.1-13.4 prothrombin time (patient) 19.9 SECS s 11.1-13.4 international normalized ratio (INR) 2.4 1.0-3.5 prothrombin time (patient) 19.9 SECS s 11.1-13.4 international normalized ratio (INR) 2.4 1.0-3.5 international normalized ratio (INR) 1.5 1.0-3.5 prothrombin time (patient) 21.3 SECS s 11.1-13.4 international normalized ratio (INR) 2.7 1.0-3.5 Encounters Code Encounter Date Provider Facility CPT-79093 Level 4 Est. Patient 09:30:18 CDT Mitch luis [facility] CPT-91484 Level 3 Est. Patient 15:10:14 CDT Joe kamara [facility] CPT-65626 Level 3 Est. Patient 15:03:46 CDT Joe kamara [facility] CPT-51796 Level 3 Est. Patient 14:21:06 CDT Mitch luis [facility] CPT-35293 Level 3 Est. Patient 14:52:06 CDT Joe kamara [facility] CPT-77978 Level 3 Est. Patient 09:34:30 STERILE PROCESSING TECHNICIAN Mitch luis [facility] CPT-89379 Level 3 Est. Patient 09:37:15 CDT Mitch luis [facility] CPT-63895 Level 3 Est. Patient 17:01:00 STERILE PROCESSING TECHNICIAN Mitch luis [facility] CPT-89383 Level 3 Est. Patient 13:53:19 STERILE PROCESSING TECHNICIAN Mitch luis [facility] CPT-99730 Level 3 Est. Patient 19:19:37 STERILE PROCESSING TECHNICIAN Mitch luis [facility] CPT-39535 Level 3 Est. Patient 13:25:53 STERILE PROCESSING TECHNICIAN Tavo toure MD [facility] CPT-20660 Level 3 Est. Patient 18:17:28 CDT Mitch luis [facility] CPT-05499 Level 3 Est. Patient 15:22:57 CDT Mitch luis [facility] CPT-91790 Level 3 Est. Patient 18:21:50 CDT Mitch luis [facility] CPT-41551 Level 3 Est. Patient 18:20:38 CDT Mitch luis [facility] CPT-76275 Level 3 Est. Patient 15:37:55 CDT Mitch luis [facility] CPT-77135 Level 2 Est. Patient 15:54:44 CDT Carmine benton MD [facility] CPT-67811 Level 3 Est. Patient 21:46:01 STERILE PROCESSING TECHNICIAN Mitch luis [facility] CPT-31850 Level 3 Est. Patient 22:15:50 CDT Mitch luis [facility] CPT-59920 Level 3 Est. Patient 10:48:15 CDT Mitch luis [facility] CPT-06255 Level 3 Est. Patient 23:20:57 CDT Tavo toure MD [facility] CPT-55881 Level 3 Est. Patient 16:26:13 CDT Mitch Castellano janelle [facility] Procedures Code Procedure Name Date Entry Date Standard Desc ription CPT-12190 Venipuncture Draw Fee 09:26:17 CDT CPT-55443 PT/INR - LAB USE ONLY 13:32:49 STERILE PROCESSING TECHNICIAN CPT-13700 Venipuncture Draw Fee 13:32:49 STERILE PROCESSING TECHNICIAN CPT-13543 PT/INR - LAB USE ONLY 10:34:49 STERILE PROCESSING TECHNICIAN CPT-75186 Venipuncture Draw Fee 10:34:48 STERILE PROCESSING TECHNICIAN CPT-25025 PT/INR - LAB USE ONLY 09:22:03 STERILE PROCESSING TECHNICIAN CPT-71663 Venipuncture Draw Fee 09:22:02 STERILE PROCESSING TECHNICIAN CPT-24310 Hemoccult IFOBT - LAB USE ONLY 10:27:22 CDT CPT-76737 Venipuncture Draw Fee 08:27:08 CDT CPT-64429 Liver Profile - LAB USE ONLY 08:27:07 CDT 2 CPT-45914 Microalbumin - LAB USE ONLY 08:27:07 CDT 20 25/05/09 CPT-17996 PT/INR - LAB USE ONLY 08:27:07 CDT CPT-33078 HGBA1C - LAB USE ONLY 08:27:07 CDT CPT-38892 CBC - LAB USE ONLY 08:27:07 CDT CPT-75497 Venipuncture Draw Fee 11:09:14 CDT CPT-62317 Venipuncture Draw Fee 08:32:21 STERILE PROCESSING TECHNICIAN CPT-94353 Venipuncture Draw Fee 09:38:56 STERILE PROCESSING TECHNICIAN CPT-40131 No Charge Offi Visit 21:36:07 CDT 1 CPT-42850 Venipuncture Draw Fee 10:13:28 STERILE PROCESSING TECHNICIAN CPT-36448 Venipuncture Draw Fee 08:31:11 CDT CPT-19671 Aspir/Inject Med Joint 18:17:28 CDT CPT-96055 Venipuncture Draw Fee 10:13:30 CDT CPT-90355 Venipuncture Draw Fee 08:31:43 STERILE PROCESSING TECHNICIAN CPT-JTINJ Joint Injection 18:34:50 CDT CPT-47204 Knee 3V 12:25:09 CDT CPT-49490 Venipuncture Draw Fee 12:15:57 CDT CPT-060 Medical Surveillance Exam 21:31:43 CDT 2011 CPT-99903 Venipuncture Draw Fee 08:32:05 STERILE PROCESSING TECHNICIAN CPT-OV Office Visit 18:19:06 CDT
--- OUTSIDE RECORDS SUMMARY | 2020-01-18 12:36 | XMS REPORT | Clinical Summary ---
[...] Coronary atherosclerosis of unspecified type of vessel, atka or graft EDEMA 782.3 Active Mitch Urbina [...] DO Gout, unspecified BRUISE 924.9 Active Mitch rUbina DO Con tusion of unspecified site OLECRANON BURSITIS, RIGHT 726.33 Active Mitch Urbina DO Olecranon bursitis UNSPECIFIED ANEMIA 285.9 Active Blessing Loen MA Anemia, unspecified Malaise and fatigue 780.79 [...] 1/2 tab tid 3 days MECLIZINE HCL 57349900162 No Longer Active Corey SEGURA Active ALLOPURINOL 300 MG TABS Take 1 tablet by mouth daily 2 ALLOPURINOL 44644042415 No Longer Active Corey SEGURA Activ e CLONIDINE HCL 0.1 MG TABS 1 po bid 7 days, then 1/2 tab po b id 7 days CLONIDINE HCL 59013228462 No Longer Active Corey SEGURA Active COUMADIN 5 MG TABS 1 tab PO daily WARFARIN SODIUM 45316246651 Active Mitch Urbina DO Active COUMADIN 4 MG TABS 1 tablet daily WARFARIN SODI UM 48038578398 No Longer Active Corey SEGURA Active POLYTRIM 22876-9.1 UNIT/ML-% SOLN 1 drop in affected e ye every 3 hours while awake x 7 days POLYMYXIN B-TRIMETHOPRIM 43370267570 N o Longer Active Corey SEGURA Active LOSARTAN POTASSIUM-HCTZ 100-12.5 MG TABS 1 by mouth da rocky for high blood pressure LOSARTAN POTASSIUM-HCTZ 09278906795 Active Stephy Urbina DO Active LISINOPRIL-HYDROCHLOROTHIAZIDE 20-12.5 MG TABS 1 tab by mouth da rocky LISINOPRIL-HYDROCHLOROTHIAZIDE 48156168302 No Longer Active Mitch luis DO Active LISINOPRIL 20 MG TABS 1 tab po at HS LISINOPRIL 63566429365 No Longer Active Mitch Urbina DO Active COUMADIN 5 MG TABS 1 by mouth every other day WARFARIN SODIUM 73089249197 No Longer Active Mitch Urbina DO Active COUMADIN 6 MG TABS 1 by mouth every other day WARFARIN SODIUM 49953976097 No Longer Active Mitch Urbina DO Active COLCRYS 0.6 MG TABS 1 tab qid prn gout COLCHICINE 29899511559 Active Mitch Urbina DO Active SIMVASTATIN 40 MG TABS 1 tab daily at bedtime S IMVASTATIN 72105495193 Active Mitch Urbina DO Active SIMVASTATIN 20 MG TABS 1 tab daily at bedtime S IMVASTATIN 99290656735 No Longer Active Mitch Urbina DO Active LOVENOX 100 MG/ML SC SOLN One injection twice a day 09/15/15 ENOXAPARIN SODIUM 14328731644 No Longer Active Carmine Navarrete ctive JANUVIA 50 MG TABS Take one by mouth daily DIEGO GLIPTIN PHOSPHATE 82651718944 Active Mitch Urbina DO Active JANUVIA 100 MG TABS 1/2 by mouth every day DIEGO GLIPTIN PHOSPHATE 36269296639 No Longer Active Bijal Philipp RN Active METFORMIN HCL 500 MG TABS 2 by mouth twice daily METFORMIN HCL 28081820753 Active Mitch Urbina DO Active GLIMEPIRIDE 4 MG TABS 1 tab po bid GLIMEPIRIDE 208494 54823 Active Mitch Urbina DO Active COLCRYS 0.6 MG TABS 1 po q 6 hours prn gout pain 03/02 COLCHICINE 15234499895 No Longer Active Camila [place] Active LISINOPRIL 5 MG TABS 1 by mouth every day LISIN OPRIL 42781106223 No Longer Active Nguyenmolly Perez Active KLOR-CON 20 MEQ PACK Take one by mouth daily 8 POTASSIUM CHLORIDE 95905127162 No Longer Active Nguyenmolly Perez Active FUROSEMIDE 40 MG TABS 1 by mouth daily FUROSEMI DE 90973186988 No Longer Active Nguyen Perez Active PROVIGIL 200 MG TABS 1/2 tab po q day MODAFINIL 03099 829003 Active Mitch Urbina DO Active PROVIGIL 100 MG TABS Take one by mouth daily MO DAFINIL 42545284336 No Longer Active Mitch Urbina DO Active BACTRIM DS 800-160 MG TAB 1 tab by mouth twice daily 2 TRIMETHOPRIM-SULFAMETHOXAZOLE 30959122191 No Longer Active Renan Hays MD Active FAMOTIDINE 20 MG TABS by mouth twice a day FAMOTI DINE 05605601391 Active Mitch Urbina DO Active ADULT ASPIRIN LOW STRENGTH 81 MG TBDP 1 by mouth every daily ASPIRIN 75358379207 Active Mitch Urbina DO Active METOPROLOL TARTRATE 50 MG TABS 1 by mouth twice daily METOPROLOL TARTRATE 62076831286 Active Mitch Urbina DO Active BACTRIM DS 800-160 MG TAB 1 tab by mouth twice daily 2 BACTRIM DS 800-160 MG TAB TRIMETHOPRIM-SULFAMETHOXAZOLE Inac tive PROVIGIL 100 MG TABS Take one by mouth daily 4 PROVIGIL 100 MG TABS 151558 MODAFINIL Inactive FUROSEMIDE 40 MG TABS 1 by mouth daily FU ROSEMIDE 40 MG TABS 111219 FUROSEMIDE Inactive KLOR-CON 20 MEQ PACK Take one by mouth daily 8 KLOR-CON 20 MEQ PACK 961057 POTASSIUM CHLORIDE Inactive LISINOPRIL 5 MG TABS 1 by mouth every day LISINOPRIL 5 MG TABS 336537 LISINOPRIL Inactive COLCRYS 0.6 MG TABS 1 po q 6 hours prn gout pain 03/02 COLCRYS 0.6 MG TABS COLCHICINE Inactive JANUVIA 100 MG TABS 1/2 by mouth every day JANUVI A 100 MG TABS SITAGLIPTIN PHOSPHATE Inactive SIMVASTATIN 20 MG TABS 1 tab daily at bedtime SIMVASTATIN 20 MG TABS 752957 SIMVASTATIN Inactive COUMADIN 6 MG TABS 1 by mouth every other day COUMADIN 6 MG TABS 702254 WARFARIN SODIUM Inactive COUMADIN 5 MG TABS 1 by mouth every other day COUMADIN 5 MG TABS 234283 WARFARIN SODIUM Inactive LISINOPRIL 20 MG TABS 1 tab po at HS KOKI NOPRIL 20 MG TABS 959508 LISINOPRIL Inactive LISINOPRIL-HYDROCHLOROTHIAZIDE 20-12.5 MG TABS 1 tab by mouth da rocky LISINOPRIL-HYDROCHLOROTHIAZIDE 20-12.5 MG TABS 575689 LISINOPRIL-HYDROCHLOROTHIAZIDE Inactive POLYTRIM 31020-4.1 UNIT/ML-% SOLN 1 drop in affected e ye every 3 hours while awake x 7 days POLYTRIM 12344-5.1 UNIT/ML-% SOLN 61184 7 POLYMYXIN B-TRIMETHOPRIM Inactive COUMADIN 4 MG TABS 1 tablet daily COUMADIN 4 MG TABS 131652 WARFARIN SODIUM Inactive CLONIDINE HCL 0.1 MG TABS 1 po bid 7 days, then 1/2 tab po b id 7 days CLONIDINE HCL 0.1 MG TABS 711978 CLONIDINE HCL I nactive ALLOPURINOL 300 MG TABS Take 1 tablet by mouth daily 2 ALLOPURINOL 300 MG TABS 373555 ALLOPURINOL Inactive MECLIZINE HCL 25 MG TAB 1 po tid 3 days, then 1/2 tab tid 3 days MECLIZINE HCL 25 MG TAB 582116 MECLIZINE HCL Inactive LOVENOX 100 MG/ML SC SOLN One injection twice a day 09/15/15 LOVENOX 100 MG/ML SC SOLN 758997 ENOXAPARIN SODIUM Inactive Vital Signs Date Name [...] Acid - Chemistry sodium, serum 136 mmol/L 032-924 8070/07/25 potassium, serum 4.6 mmol/L 3.5-5.2 chloride, serum [...] 6.9 % 4.3-6.0 cholesterol, serum 108 mg/dL 029-157 4435/11/01 triglyceride, serum, fasting 112 mg/dL 30-200 HDL [...] 1.0-3.5 Encounters Code Encounter Date Provider Facility CPT-30825 Level 3 Est. Patient 13:53:19 [employer]PER[employer] Mitch luis DO [facility] CPT-43405 Level 3 Est. Patient 19:19:37 [employer]PER[employer] SUPER[employer]OR Mitch luis DO [facility] CPT-83974 Level 3 Est. Patient 13:25:53 [employer]PER[employer] SUPER[employer]OR Tavo toure MD [facility] CPT-33992 Level 3 Est. Patient 18:17:28 CDT Mitch luis [facility] CPT-57515 Level 3 Est. Patient 15:22:57 CDT Mitch luis [facility] CPT-99794 Level 3 Est. Patient 18:21:50 CDT Mitch luis [facility] CPT-32902 Level 3 Est. Patient 18:20:38 CDT Mitch luis [facility] CPT-07782 Level 3 Est. Patient 15:37:55 CDT Mitch luis [facility] CPT-99951 Level 2 Est. Patient 15:54:44 CDT Carmine benton MD [facility] CPT-48318 Level 3 Est. Patient 21:46:01 [employer] SUPER[employer] Mitch luis [facility] CPT-36746 Level 3 Est. Patient 22:15:50 CDT Mitch luis [facility] CPT-38860 Level 3 Est. Patient 10:48:15 CDT Mitch luis [facility] CPT-58601 Level 3 Est. Patient 23:20:57 CDT Tavo toure MD [facility] CPT-63211 Level 3 Est. Patient 16:26:13 CDT Mitch luis [facility] Procedures Code Procedure Name Date Entry Date Standard Desc ription CPT-58425 Venipuncture Draw Fee 10:13:28 [employer] CPT-63152 Venipuncture Draw Fee 08:31:11 CDT CPT-88448 Aspir/Inject Med Joint 18:17:28 CDT CPT-50365 Venipuncture Draw Fee 10:13:30 CDT CPT-49066 Venipuncture Draw Fee 08:31:43 [employer] CPT-JTINJ Joint Injection 18:34:50 CDT CPT-50162 Knee 3V 12:25:09 CDT CPT-62934 Venipuncture Draw Fee 12:15:57 CDT CPT-060 Medical Surveillance Exam 21:31:43 CDT 2011 CPT-92839 Venipuncture Draw Fee 08:32:05 [employer] CPT-OV Office Visit 18:19:06 CDT
--- OUTSIDE RECORDS SUMMARY | 2020-01-18 12:37 | XMS REPORT | Clinical Summary ---
Author Author Admin, Mitch Leon Organization [facility] Address Unknown Phone Unavailable Allergies, [...] TABS 1 tab qid prn gout COLCHICINE 51018063102 Active Kathie Juan RPT,RMA Active COUMADIN 1 MG TAB take 1 tab daily with 5mg tab. ( 6mg total ) 2015 WARFARIN SODIUM 39426784145 Active Domi Rivera MA Acti ve INVOKANA 100 MG ORAL TABS 1 tablet orally daily CANAGLIFLOZIN 18718262496 Active Kathie Juan RPT,RMA Active MINOXIDIL 2.5 MG TABS 1 tablet daily for high blood pressure 10/23 MINOXIDIL 47879545727 Active Mitch Urbina DO Active AMLODIPINE BESYLATE 5 MG TABS 1 tablet by mouth daily AMLODIPINE BESYLATE 76177430072 Active Domi Rivera MA Active MECLIZINE HCL 25 MG TAB 1 po tid 3 days, then 1/2 tab tid 3 days MECLIZINE HCL 54515200882 No Longer Active Corey SEGURA Active ALLOPURINOL 300 MG TABS Take 1 tablet by mouth daily 2 ALLOPURINOL 51402571886 No Longer Active Corey SEGURA Activ e CLONIDINE HCL 0.1 MG TABS 1 po bid 7 days, then 1/2 tab po b id 7 days CLONIDINE HCL 53482845770 No Longer Active Corey SEGURA Active COUMADIN 5 MG TABS 1 tab PO daily WARFARIN SODIUM 92052758900 Active Domi Rivera MA Active COUMADIN 4 MG TABS 1 tablet daily WARFARIN SODI UM 84588067969 No Longer Active Corey SEGURA Active POLYTRIM 52388-7.1 UNIT/ML-% SOLN 1 drop in affected e ye every 3 hours while awake x 7 days POLYMYXIN B-TRIMETHOPRIM 07301432637 N o Longer Active Corey SEGURA Active LOSARTAN POTASSIUM-HCTZ 100-12.5 MG TABS 1 by mouth da rocky for high blood pressure LOSARTAN POTASSIUM-HCTZ 11538005219 Active Domi Rivera MA Active LISINOPRIL-HYDROCHLOROTHIAZIDE 20-12.5 MG TABS 1 tab by mouth da rocky LISINOPRIL-HYDROCHLOROTHIAZIDE 68470716024 No Longer Active Mitch luis DO Active LISINOPRIL 20 MG TABS 1 tab po at HS LISINOPRIL 67447651079 No Longer Active Mitch Urbina DO Active COUMADIN 5 MG TABS 1 by mouth every other day WARFARIN SODIUM 05828567819 No Longer Active Mitch Urbina DO Active COUMADIN 6 MG TABS 1 by mouth every other day WARFARIN SODIUM 27384472258 No Longer Active Mitch Urbina DO Active SIMVASTATIN 40 MG TABS 1 tab daily at bedtime S IMVASTATIN 51405672832 Active Domi Rivera MA Active SIMVASTATIN 20 MG TABS 1 tab daily at bedtime S IMVASTATIN 56518883368 No Longer Active Mitch Urbina DO Active LOVENOX 100 MG/ML SC SOLN One injection twice a day 09/15/15 ENOXAPARIN SODIUM 29035341705 No Longer Active Carmine Navarrete ctive JANUVIA 50 MG TABS Take one by mouth daily DIEGO GLIPTIN PHOSPHATE 41428191756 Active Domi Rivera MA Active JANUVIA 100 MG TABS 1/2 by mouth every day DIEGO GLIPTIN PHOSPHATE 54895709698 No Longer Active Bijal Segal RN Active METFORMIN HCL 500 MG TABS 2 by mouth twice daily METFORMIN HCL 94260050514 Active Kathie Juan RPT,RMA Active GLIMEPIRIDE 4 MG TABS 1 tab po bid GLIMEPIRIDE 708649 90603 Active Kathie Juan RPT,RMA Active COLCRYS 0.6 MG TABS 1 po q 6 hours prn gout pain 03/02 COLCHICINE 15826666568 No Longer Active Caimla Reese Active LISINOPRIL 5 MG TABS 1 by mouth every day LISIN OPRIL 30722261406 No Longer Active Nguyen Perez Active KLOR-CON 20 MEQ PACK Take one by mouth daily 8 POTASSIUM CHLORIDE 47257385620 No Longer Active Nguyen Perez Active FUROSEMIDE 40 MG TABS 1 by mouth daily FUROSEMI DE 17212465469 No Longer Active Nguyen Perez Active PROVIGIL 200 MG TABS 1/2 tab po q day MODAFINIL 53576 870883 Active Domi Rivera MA Active PROVIGIL 100 MG TABS Take one by mouth daily MO DAFINIL 86025396749 No Longer Active Mitch Urbina DO Active BACTRIM DS 800-160 MG TAB 1 tab by mouth twice daily 2 TRIMETHOPRIM-SULFAMETHOXAZOLE 03743496768 No Longer Active Renan Hays MD Active FAMOTIDINE 20 MG TABS by mouth twice a day FAMOTI DINE 38162351667 Active Mitch Urbina DO Active ADULT ASPIRIN LOW STRENGTH 81 MG TBDP 1 by mouth every daily ASPIRIN 73288716023 Active Mitch Urbina DO Active METOPROLOL TARTRATE 50 MG TABS 1 by mouth twice daily METOPROLOL TARTRATE 43937629288 Active Domi Rivera MA Active BACTRIM DS 800-160 MG TAB 1 tab by mouth twice daily 2 BACTRIM DS 800-160 MG TAB 007590 TRIMETHOPRIM-SULFAMETHOXAZOLE Inac tive PROVIGIL 100 MG TABS Take one by mouth daily 4 PROVIGIL 100 MG TABS 569545 MODAFINIL Inactive FUROSEMIDE 40 MG TABS 1 by mouth daily FU ROSEMIDE 40 MG TABS 424038 FUROSEMIDE Inactive KLOR-CON 20 MEQ PACK Take one by mouth daily 8 KLOR-CON 20 MEQ PACK 421802 POTASSIUM CHLORIDE Inactive LISINOPRIL 5 MG TABS 1 by mouth every day LISINOPRIL 5 MG TABS 264117 LISINOPRIL Inactive COLCRYS 0.6 MG TABS 1 po q 6 hours prn gout pain 03/02 COLCRYS 0.6 MG TABS 482685 COLCHICINE Inactive JANUVIA 100 MG TABS 1/2 by mouth every day JANUVI A 100 MG TABS SITAGLIPTIN PHOSPHATE Inactive SIMVASTATIN 20 MG TABS 1 tab daily at bedtime SIMVASTATIN 20 MG TABS 337002 SIMVASTATIN Inactive COUMADIN 6 MG TABS 1 by mouth every other day COUMADIN 6 MG TABS 515602 WARFARIN SODIUM Inactive COUMADIN 5 MG TABS 1 by mouth every other day COUMADIN 5 MG TABS 349785 WARFARIN SODIUM Inactive LISINOPRIL 20 MG TABS 1 tab po at HS KOKI NOPRIL 20 MG TABS 954686 LISINOPRIL Inactive LISINOPRIL-HYDROCHLOROTHIAZIDE 20-12.5 MG TABS 1 tab by mouth da rocky LISINOPRIL-HYDROCHLOROTHIAZIDE 20-12.5 MG TABS 619931 LISINOPRIL-HYDROCHLOROTHIAZIDE Inactive POLYTRIM 76087-6.1 UNIT/ML-% SOLN 1 drop in affected e ye every 3 hours while awake x 7 days POLYTRIM 03716-5.1 UNIT/ML-% SOLN 29514 7 POLYMYXIN B-TRIMETHOPRIM Inactive COUMADIN 4 MG TABS 1 tablet daily COUMADIN 4 MG TABS 592614 WARFARIN SODIUM Inactive CLONIDINE HCL 0.1 MG TABS 1 po bid 7 days, then 1/2 tab po b id 7 days CLONIDINE HCL 0.1 MG TABS 072908 CLONIDINE HCL I nactive ALLOPURINOL 300 MG TABS Take 1 tablet by mouth daily 2 ALLOPURINOL 300 MG TABS 631148 ALLOPURINOL Inactive MECLIZINE HCL 25 MG TAB 1 po tid 3 days, then 1/2 tab tid 3 days MECLIZINE HCL 25 MG TAB 176944 MECLIZINE HCL Inactive LOVENOX 100 MG/ML SC SOLN One injection twice a day 09/15/15 LOVENOX 100 MG/ML SC SOLN 220316 ENOXAPARIN SODIUM Inactive Vital Signs Date Name [...] Description Chart Maintenance: [facility] [place] [facility] - Chemistry occult blood, stool (E&M) Positive [...] - Chem istry sodium, serum 136 mmol/L 781-198 3549/01/14 carbon dioxide, venous blood 25.4 mmol/L 21.0-32 [...] 1.0-3.5 Encounters Code Encounter Date Provider Facility CPT-47646 Level 3 Est. Patient 09:34:30 ROAD TRAIN DRIVER Mitch luis [facility] CPT-98532 Level 3 Est. Patient 09:37:15 CDT Mitch W L janelle [facility] CPT-99690 Level 3 Est. Patient 17:01:00 ROAD TRAIN DRIVER Mitch Ambrose L janelle [facility] CPT-13760 Level 3 Est. Patient 13:53:19 ROAD TRAIN DRIVER Mitch luis [facility] CPT-03951 Level 3 Est. Patient 19:19:37 ROAD TRAIN DRIVER Mitch luis [facility] CPT-34005 Level 3 Est. Patient 13:25:53 ROAD TRAIN DRIVER Tavo toure MD [facility]-23756 Level 3 Est. Patient 18:17:28 CDT Mitch Ambrose L janelle [facility] CPT-97332 Level 3 Est. Patient 15:22:57 CDT Mitch Arnol L janelle [facility] CPT-81362 Level 3 Est. Patient 18:21:50 CDT Mitch Arnol L janelle [facility] CPT-07057 Level 3 Est. Patient 18:20:38 CDT Mitch Ambrose L janelle [facility]-71655 Level 3 Est. Patient 15:37:55 CDT Mitch W L janelle [facility] CPT-43311 Level 2 Est. Patient 15:54:44 CDT Carmine benton MD [facility]-15321 Level 3 Est. Patient 21:46:01 ROAD TRAIN DRIVER Mitch Ambrose Nona luis [facility] CPT-04472 Level 3 Est. Patient 22:15:50 CDT Mitch Castellano janelle [facility] CPT-77082 Level 3 Est. Patient 10:48:15 CDT Mitch Arnol luis DO [facility] CPT-10666 Level 3 Est. Patient 23:20:57 CDT Tavo toure MD [facility] CPT-60573 Level 3 Est. Patient 16:26:13 CDT Mitch luis [facility] Procedures Code Procedure Name Date Entry Date Standard Desc ription CPT-18626 Venipuncture Draw Fee 08:32:21 ROAD TRAIN DRIVER CPT-66584 Venipuncture Draw Fee 09:38:56 ROAD TRAIN DRIVER CPT-43882 No Charge Offi Visit 21:36:07 CDT 1 CPT-43438 Venipuncture Draw Fee 10:13:28 ROAD TRAIN DRIVER CPT-67116 Venipuncture Draw Fee 08:31:11 CDT CPT-31425 Aspir/Inject Med Joint 18:17:28 CDT CPT-00241 Venipuncture Draw Fee 10:13:30 CDT CPT-43727 Venipuncture Draw Fee 08:31:43 ROAD TRAIN DRIVER CPT-JTINJ Joint Injection 18:34:50 CDT CPT-63638 Knee 3V 12:25:09 CDT CPT-92526 Venipuncture Draw Fee 12:15:57 CDT CPT-060 Medical Surveillance Exam 21:31:43 CDT 2011 CPT-51377 Venipuncture Draw Fee 08:32:05 ROAD TRAIN DRIVER CPT-OV Office Visit 18:19:06 CDT
--- OUTSIDE RECORDS SUMMARY | 2020-01-18 12:37 | XMS REPORT | Clinical Summary ---
Author Author Admin, Mitch Leon Organization [facility] Address Unknown Phone Unavailable Allergies, Adverse [...] Coronary atherosclerosis of unspecified type of vessel, [place] or graft EDEMA 782.3 Active Mitch Urbina [...] 1 tablet by mouth daily AMLODIPINE BESYLATE 54820826482 Active Mitch Urbina DO Active MECLIZINE HCL 25 MG TAB 1 po tid 3 days, then 1/2 tab tid 3 days MECLIZINE HCL 63234765421 No Longer Active Corey SEGURA Active ALLOPURINOL 300 MG TABS Take 1 tablet by mouth daily 2 ALLOPURINOL 60571747140 No Longer Active Corey SEGURA Activ e CLONIDINE HCL 0.1 MG TABS 1 po bid 7 days, then 1/2 tab po b id 7 days CLONIDINE HCL 89776447864 No Longer Active Corey SEGURA Active COUMADIN 5 MG TABS 1 tab PO daily WARFARIN SODIUM 04680646402 Active Mitch Urbina DO Active COUMADIN 4 MG TABS 1 tablet daily WARFARIN SODI UM 01896443983 No Longer Active Corey SEGURA Active POLYTRIM 40357-0.1 UNIT/ML-% SOLN 1 drop in affected e ye every 3 hours while awake x 7 days POLYMYXIN B-TRIMETHOPRIM 81399241375 N o Longer Active Corey SEGURA Active LOSARTAN POTASSIUM-HCTZ 100-12.5 MG TABS 1 by mouth da rocky for high blood pressure LOSARTAN POTASSIUM-HCTZ 94880777605 Active Stephy Urbina DO Active LISINOPRIL-HYDROCHLOROTHIAZIDE 20-12.5 MG TABS 1 tab by mouth da rocky LISINOPRIL-HYDROCHLOROTHIAZIDE 35926385958 No Longer Active Mitch luis DO Active LISINOPRIL 20 MG TABS 1 tab po at HS LISINOPRIL 54490698319 No Longer Active Mitch Urbina DO Active COUMADIN 5 MG TABS 1 by mouth every other day WARFARIN SODIUM 34923936645 No Longer Active Mitch Urbina DO Active COUMADIN 6 MG TABS 1 by mouth every other day WARFARIN SODIUM 98506521711 No Longer Active Mitch Urbina DO Active COLCRYS 0.6 MG TABS 1 tab qid prn gout COLCHICINE 77119990577 Active Mitch Urbina DO Active SIMVASTATIN 40 MG TABS 1 tab daily at bedtime S IMVASTATIN 00356427693 Active Mitch Urbina DO Active SIMVASTATIN 20 MG TABS 1 tab daily at bedtime S IMVASTATIN 69606976694 No Longer Active Mitch Urbina DO Active LOVENOX 100 MG/ML SC SOLN One injection twice a day 09/15/15 ENOXAPARIN SODIUM 92789360154 No Longer Active Carmine Navarrete ctive JANUVIA 50 MG TABS Take one by mouth daily DIEGO GLIPTIN PHOSPHATE 74232511732 Active Mitch Urbina DO Active JANUVIA 100 MG TABS 1/2 by mouth every day DIEGO GLIPTIN PHOSPHATE 68612981706 No Longer Active Bijal Philipp RN Active METFORMIN HCL 500 MG TABS 2 by mouth twice daily METFORMIN HCL 06352709986 Active Mitch Urbina DO Active GLIMEPIRIDE 4 MG TABS 1 tab po bid GLIMEPIRIDE 208821 07200 Active Mitch Urbina DO Active COLCRYS 0.6 MG TABS 1 po q 6 hours prn gout pain 03/02 COLCHICINE 79535679581 No Longer Active Camila Reese Active LISINOPRIL 5 MG TABS 1 by mouth every day LISIN OPRIL 43340353689 No Longer Active Nguyenmolly Perez Active KLOR-CON 20 MEQ PACK Take one by mouth daily 8 POTASSIUM CHLORIDE 50907204979 No Longer Active Nguyen Perez Active FUROSEMIDE 40 MG TABS 1 by mouth daily FUROSEMI DE 80289611547 No Longer Active Nguyen Perez Active PROVIGIL 200 MG TABS 1/2 tab po q day MODAFINIL 09153 187984 Active Mitch Urbina DO Active PROVIGIL 100 MG TABS Take one by mouth daily MO DAFINIL 40335556628 No Longer Active Mitch Urbina DO Active BACTRIM DS 800-160 MG TAB 1 tab by mouth twice daily 2 TRIMETHOPRIM-SULFAMETHOXAZOLE 86156461527 No Longer Active eRnan Hays MD Active FAMOTIDINE 20 MG TABS by mouth twice a day FAMOTI DINE 88253619848 Active Mitch Urbina DO Active ADULT ASPIRIN LOW STRENGTH 81 MG TBDP 1 by mouth every daily ASPIRIN 15478519182 Active Mitch Urbina DO Active METOPROLOL TARTRATE 50 MG TABS 1 by mouth twice daily METOPROLOL TARTRATE 32806550137 Active Mitch W [place] DO Active BACTRIM DS 800-160 MG TAB 1 tab by mouth twice daily 2 BACTRIM DS 800-160 MG TAB TRIMETHOPRIM-SULFAMETHOXAZOLE Inac tive PROVIGIL 100 MG TABS Take one by mouth daily 4 PROVIGIL 100 MG TABS 829578 MODAFINIL Inactive FUROSEMIDE 40 MG TABS 1 by mouth daily FU ROSEMIDE 40 MG TABS 731086 FUROSEMIDE Inactive KLOR-CON 20 MEQ PACK Take one by mouth daily 8 KLOR-CON 20 MEQ PACK 893853 POTASSIUM CHLORIDE Inactive LISINOPRIL 5 MG TABS 1 by mouth every day LISINOPRIL 5 MG TABS 570281 LISINOPRIL Inactive COLCRYS 0.6 MG TABS 1 po q 6 hours prn gout pain 03/02 COLCRYS 0.6 MG TABS COLCHICINE Inactive JANUVIA 100 MG TABS 1/2 by mouth every day JANUVI A 100 MG TABS SITAGLIPTIN PHOSPHATE Inactive SIMVASTATIN 20 MG TABS 1 tab daily at bedtime SIMVASTATIN 20 MG TABS 416008 SIMVASTATIN Inactive COUMADIN 6 MG TABS 1 by mouth every other day COUMADIN 6 MG TABS 583509 WARFARIN SODIUM Inactive COUMADIN 5 MG TABS 1 by mouth every other day COUMADIN 5 MG TABS 248904 WARFARIN SODIUM Inactive LISINOPRIL 20 MG TABS 1 tab po at HS KOKI NOPRIL 20 MG TABS 025492 LISINOPRIL Inactive LISINOPRIL-HYDROCHLOROTHIAZIDE 20-12.5 MG TABS 1 tab by mouth da rocky LISINOPRIL-HYDROCHLOROTHIAZIDE 20-12.5 MG TABS 064403 LISINOPRIL-HYDROCHLOROTHIAZIDE Inactive POLYTRIM 47920-3.1 UNIT/ML-% SOLN 1 drop in affected e ye every 3 hours while awake x 7 days POLYTRIM 31538-8.1 UNIT/ML-% SOLN 82515 7 POLYMYXIN B-TRIMETHOPRIM Inactive COUMADIN 4 MG TABS 1 tablet daily COUMADIN 4 MG TABS 509507 WARFARIN SODIUM Inactive CLONIDINE HCL 0.1 MG TABS 1 po bid 7 days, then 1/2 tab po b id 7 days CLONIDINE HCL 0.1 MG TABS 180715 CLONIDINE HCL I nactive ALLOPURINOL 300 MG TABS Take 1 tablet by mouth daily 2 ALLOPURINOL 300 MG TABS 685896 ALLOPURINOL Inactive MECLIZINE HCL 25 MG TAB 1 po tid 3 days, then 1/2 tab tid 3 days MECLIZINE HCL 25 MG TAB 935859 MECLIZINE HCL Inactive LOVENOX 100 MG/ML SC SOLN One injection twice a day 09/15/15 LOVENOX 100 MG/ML SC SOLN 586467 ENOXAPARIN SODIUM Inactive Vital Signs Date Name [...] Acid - Chemistry sodium, serum 136 mmol/L 326-827 3821/07/25 potassium, serum 4.6 mmol/L 3.5-5.2 chloride, serum [...] Panel - Chemistry sodium, serum 137 mmol/L 520-545 5350/11/14 potassium, serum 4.4 mmol/L 3.5-5.2 chloride, serum [...] 8.0 % 4.3-6.0 cholesterol, serum 130 mg/dL 648-738 0705/11/14 triglyceride, serum, fasting 288 mg/dL 30-200 HDL cholesterol, serum 33 mg/dL 32-96 LDL cholesterol, serum 39 mg/dL 0-130 Lab Report: Comp. Metabolic Panel, HGBA1 C, Lipid Panel, Prothrombin Time - Chemistry sodium, serum 136 mmol/L 400-897 9947/12/02 potassium, serum 4.4 mmol/L 3.5-5.2 chloride, serum [...] 7.6 % 4.3-6.0 cholesterol, serum 117 mg/dL 123-182 5704/12/02 triglyceride, serum, fasting 226 mg/dL 30-200 HDL [...] 1.0-3.5 Encounters Code Encounter Date Provider Facility CPT-69007 Level 3 Est. Patient 13:53:19 REED POLISHER Mitch luis [facility] CPT-03607 Level 3 Est. Patient 19:19:37 REED POLISHER Mitch luis [facility] CPT-43106 Level 3 Est. Patient 13:25:53 REED POLISHER Tavo toure MD [facility] CPT-93753 Level 3 Est. Patient 18:17:28 CDT Mitch luis [facility] CPT-53115 Level 3 Est. Patient 15:22:57 CDT Mitch luis [facility] CPT-21342 Level 3 Est. Patient 18:21:50 CDT Mitch luis [facility] CPT-15847 Level 3 Est. Patient 18:20:38 CDT Mitch luis [facility] CPT-06020 Level 3 Est. Patient 15:37:55 CDT Mitch luis [facility] CPT-11545 Level 2 Est. Patient 15:54:44 CDT Carmine benton MD [facility] CPT-42909 Level 3 Est. Patient 21:46:01 REED POLISHER Mitch luis [facility] CPT-17720 Level 3 Est. Patient 22:15:50 CDT Mitch luis [facility] CPT-76568 Level 3 Est. Patient 10:48:15 CDT Mitch luis [facility] CPT-58075 Level 3 Est. Patient 23:20:57 CDT Tavo toure MD [facility] CPT-73865 Level 3 Est. Patient 16:26:13 CDT Mitch luis [facility] Procedures Code Procedure Name Date Entry Date Standard Desc ription CPT-26137 Venipuncture Draw Fee 10:13:28 REED [employer]ISH[employer] CPT-68667 Venipuncture Draw Fee 08:31:11 CDT CPT-65415 Aspir/Inject Med Joint 18:17:28 CDT CPT-26493 Venipuncture Draw Fee 10:13:30 CDT CPT-74768 Venipuncture Draw Fee 08:31:43 REED POLISHER CPT-JTINJ Joint Injection 18:34:50 CDT CPT-00776 Knee 3V 12:25:09 CDT CPT-00030 Venipuncture Draw Fee 12:15:57 CDT CPT-060 Medical Surveillance Exam 21:31:43 CDT 2011 CPT-20789 Venipuncture Draw Fee 08:32:05 REED POLISHER CPT-OV Office Visit 18:19:06 CDT
--- OUTSIDE RECORDS SUMMARY | 2020-01-18 12:37 | XMS REPORT | Clinical Summary ---
Author Author Admin, Mitch Leon Organization [facility] Address Unknown Phone Unavailable Allergies, [...] Coronary atherosclerosis of unspecified type of vessel, [place] or graft EDEMA 782.3 Active Mitch Urbina [...] 1/2 tab tid 3 days MECLIZINE HCL 19667304143 No Longer Active Corey SEGURA Active ALLOPURINOL 300 MG TABS Take 1 tablet by mouth daily 2 ALLOPURINOL 55156419581 No Longer Active Corey SEGURA Activ e CLONIDINE HCL 0.1 MG TABS 1 po bid 7 days, then 1/2 tab po b id 7 days CLONIDINE HCL 24184447592 No Longer Active Corey SEGURA Active COUMADIN 5 MG TABS 1 tab PO daily WARFARIN SODIUM 43230150371 Active Mitch Urbina DO Active COUMADIN 4 MG TABS 1 tablet daily WARFARIN SODI UM 28961353123 No Longer Active Corey SEGURA Active POLYTRIM 51158-2.1 UNIT/ML-% SOLN 1 drop in affected e ye every 3 hours while awake x 7 days POLYMYXIN B-TRIMETHOPRIM 75829843049 N o Longer Active Corey SEGURA Active [place]AN POTASSIUM-HCTZ 100-12.5 MG TABS 1 by mouth [place] for high blood pressure LOSARTAN POTASSIUM-HCTZ 08720629932 Active Stephy Urbina DO Active LISINOPRIL-HYDROCHLOROTHIAZIDE 20-12.5 MG TABS 1 tab by mouth da rocky LISINOPRIL-HYDROCHLOROTHIAZIDE 91661501835 No Longer Active Mitch luis DO Active LISINOPRIL 20 MG TABS 1 tab po at HS LISINOPRIL 71624106590 No Longer Active Mitch Urbina DO Active COUMADIN 5 MG TABS 1 by mouth every other day WARFARIN SODIUM 65836908306 No Longer Active Mitch Urbina DO Active COUMADIN 6 MG TABS 1 by mouth every other day WARFARIN SODIUM 38404563801 No Longer Active Mitch Urbina DO Active COLCRYS 0.6 MG TABS 1 tab qid prn gout COLCHICINE 18836674894 Active Mitch Urbina DO Active SIMVASTATIN 40 MG TABS 1 tab daily at bedtime S IMVASTATIN 79379218261 Active Mitch Urbina DO Active SIMVASTATIN 20 MG TABS 1 tab daily at bedtime S IMVASTATIN 13009055892 No Longer Active Mitch Urbina DO Active LOVENOX 100 MG/ML SC SOLN One injection twice a day 09/15/15 ENOXAPARIN SODIUM 90512233819 No Longer Active Carmine Navarrete ctive JANUVIA 50 MG TABS Take one by mouth daily DIEGO GLIPTIN PHOSPHATE 66311734577 Active Mitch Urbina DO Active JANUVIA 100 MG TABS 1/2 by mouth every day DIEGO GLIPTIN PHOSPHATE 44460534482 No Longer Active Bijal Philipp RN Active METFORMIN HCL 500 MG TABS 2 by mouth twice daily METFORMIN HCL 48695597733 Active Mitch Urbina DO Active GLIMEPIRIDE 4 MG TABS 1 tab po bid GLIMEPIRIDE 148373 53297 Active Mitch Urbina DO Active COLCRYS 0.6 MG TABS 1 po q 6 hours prn gout pain 03/02 COLCHICINE 21409725205 No Longer Active Camila Hugh Active LISINOPRIL 5 MG TABS 1 by mouth every day LISIN OPRIL 16074688084 No Longer Active Nguyenmolly Perez Active KLOR-CON 20 MEQ PACK Take one by mouth daily 8 POTASSIUM CHLORIDE 86515540952 No Longer Active Nguyenmolly Perez Active FUROSEMIDE 40 MG TABS 1 by mouth daily FUROSEMI DE 23680230756 No Longer Active Nguyen Perez Active PROVIGIL 200 MG TABS 1/2 tab po q day MODAFINIL 09520 009141 Active Mitch Urbina DO Active PROVIGIL 100 MG TABS Take one by mouth daily MO DAFINIL 08904128230 No Longer Active Mitch Urbina DO Active BACTRIM DS 800-160 MG TAB 1 tab by mouth twice daily 2 TRIMETHOPRIM-SULFAMETHOXAZOLE 42451207372 No Longer Active Renan Hays MD Active FAMOTIDINE 20 MG TABS by mouth twice a day FAMOTI DINE 27425744853 Active Mitch Urbina DO Active ADULT ASPIRIN LOW STRENGTH 81 MG TBDP 1 by mouth every daily ASPIRIN 73306504599 Active Mitch Urbina DO Active METOPROLOL TARTRATE 50 MG TABS 1 by mouth twice daily METOPROLOL TARTRATE 53527989237 Active Mitch Urbina DO Active BACTRIM DS 800-160 MG TAB 1 tab by mouth twice daily 2 BACTRIM DS 800-160 MG TAB TRIMETHOPRIM-SULFAMETHOXAZOLE Inac tive PROVIGIL 100 MG TABS Take one by mouth daily 4 PROVIGIL 100 MG TABS 914071 MODAFINIL Inactive FUROSEMIDE 40 MG TABS 1 by mouth daily FU ROSEMIDE 40 MG TABS 352081 FUROSEMIDE Inactive KLOR-CON 20 MEQ PACK Take one by mouth daily 8 KLOR-CON 20 MEQ PACK 098892 POTASSIUM CHLORIDE Inactive LISINOPRIL 5 MG TABS 1 by mouth every day LISINOPRIL 5 MG TABS 840242 LISINOPRIL Inactive COLCRYS 0.6 MG TABS 1 po q 6 hours prn gout pain 03/02 COLCRYS 0.6 MG TABS COLCHICINE Inactive JANUVIA 100 MG TABS 1/2 by mouth every day JANUVI A 100 MG TABS SITAGLIPTIN PHOSPHATE Inactive SIMVASTATIN 20 MG TABS 1 tab daily at bedtime SIMVASTATIN 20 MG TABS 652556 SIMVASTATIN Inactive COUMADIN 6 MG TABS 1 by mouth every other day COUMADIN 6 MG TABS 779931 WARFARIN SODIUM Inactive COUMADIN 5 MG TABS 1 by mouth every other day COUMADIN 5 MG TABS 034336 WARFARIN SODIUM Inactive LISINOPRIL 20 MG TABS 1 tab po at HS KOKI NOPRIL 20 MG TABS 987130 LISINOPRIL Inactive LISINOPRIL-HYDROCHLOROTHIAZIDE 20-12.5 MG TABS 1 tab by mouth da rocky LISINOPRIL-HYDROCHLOROTHIAZIDE 20-12.5 MG TABS 975885 LISINOPRIL-HYDROCHLOROTHIAZIDE Inactive POLYTRIM 35932-5.1 UNIT/ML-% SOLN 1 drop in affected e ye every 3 hours while awake x 7 days POLYTRIM 13484-9.1 UNIT/ML-% SOLN 52630 7 POLYMYXIN B-TRIMETHOPRIM Inactive COUMADIN 4 MG TABS 1 tablet daily COUMADIN 4 MG TABS 753736 WARFARIN SODIUM Inactive CLONIDINE HCL 0.1 MG TABS 1 po bid 7 days, then 1/2 tab po b id 7 days CLONIDINE HCL 0.1 MG TABS 516357 CLONIDINE HCL I nactive ALLOPURINOL 300 MG TABS Take 1 tablet by mouth daily 2 ALLOPURINOL 300 MG TABS 413970 ALLOPURINOL Inactive MECLIZINE HCL 25 MG TAB 1 po tid 3 days, then 1/2 tab tid 3 days MECLIZINE HCL 25 MG TAB 601034 MECLIZINE HCL Inactive LOVENOX 100 MG/ML SC SOLN One injection twice a day 09/15/15 LOVENOX 100 MG/ML SC SOLN 570129 ENOXAPARIN SODIUM Inactive Vital Signs Date Name [...] Acid - Chemistry sodium, serum 136 mmol/L 488-293 2783/07/25 potassium, serum 4.6 mmol/L 3.5-5.2 chloride, serum [...] Panel - Chemistry sodium, serum 137 mmol/L 115-383 6486/11/14 potassium, serum 4.4 mmol/L 3.5-5.2 chloride, serum [...] 8.0 % 4.3-6.0 cholesterol, serum 130 mg/dL 136-452 7598/11/14 triglyceride, serum, fasting 288 mg/dL 30-200 HDL [...] 1.0-3.5 Encounters Code Encounter Date Provider Facility CPT-40822 Level 3 Est. 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 Patient 19:19:37 ASSISTANT TODDLER TEACHER Mitch luis [facility] CPT-53011 Level 3 Est. Patient 13:25:53 ASSISTANT TODDLER TEACHER Tavo toure MD [facility] CPT-01785 Level 3 Est. Patient 18:17:28 CDT Mitch luis [facility] CPT-00626 Level 3 Est. Patient 15:22:57 CDT Mitch luis [facility] CPT-91411 Level 3 Est. Patient 18:21:50 CDT Mitch luis [facility] CPT-66933 Level 3 Est. Patient 18:20:38 CDT Mitch luis [facility] CPT-94985 Level 3 Est. Patient 15:37:55 CDT Mitch luis [facility] CPT-95462 Level 2 Est. Patient 15:54:44 CDT Carmine benton MD [facility] CPT-38771 Level 3 Est. Patient 21:46:01 ASSISTANT TODDLER TEACHER Mitch luis [facility] CPT-02023 Level 3 Est. Patient 22:15:50 CDT Mitch luis [facility] CPT-13701 Level 3 Est. Patient 10:48:15 CDT Mitch luis DO [facility] CPT-62128 Level 3 Est. Patient 23:20:57 CDT Tavo toure MD [facility] CPT-94388 Level 3 Est. 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
--- OUTSIDE RECORDS SUMMARY | 2020-01-18 12:37 | XMS REPORT | Clinical Summary ---
Author Author Admin, Mitch Leon Organization [facility] Address Unknown Phone Unavailable Allergies, Adverse Reactions, [...] (CURRENT) USE OF ANTICOAGULANTS V58.61 Activ e GREALD hSrestha Long-term (current) use of anticoagulant s HEALTH MAINTENANCE EXAM V70.0 Active Mitch Meraz DO Routine general medical examination at a health care facility CORONARY HEART DISEASE 414.00 Active Mitch Urbina DO Coronary atherosclerosis of unspecified type of vessel, [place] or graft EDEMA 782.3 Active Mitch Urbina [...] 1 tablet by mouth daily AMLODIPINE BESYLATE 01293315929 Active Mitch Urbina DO Active MECLIZINE HCL 25 MG TAB 1 po tid 3 days, then 1/2 tab tid 3 days MECLIZINE HCL 30850703695 No Longer Active Corey SEGURA Active ALLOPURINOL 300 MG TABS Take 1 tablet by mouth daily 2 ALLOPURINOL 20602433971 No Longer Active Corey SEGURA Activ e CLONIDINE HCL 0.1 MG TABS 1 po bid 7 days, then 1/2 tab po b id 7 days CLONIDINE HCL 10540025277 No Longer Active Corey SEGURA Active COUMADIN 5 MG TABS 1 tab PO daily WARFARIN SODIUM 26710158403 Active Mitch Urbina DO Active COUMADIN 4 MG TABS 1 tablet daily WARFARIN SODI UM 56104374713 No Longer Active Corey SEGURA Active POLYTRIM 02533-1.1 UNIT/ML-% SOLN 1 drop in affected e ye every 3 hours while awake x 7 days POLYMYXIN B-TRIMETHOPRIM 79207473803 N o Longer Active Corey SEGURA Active LOSARTAN POTASSIUM-HCTZ 100-12.5 MG TABS 1 by mouth da rocky for high blood pressure LOSARTAN POTASSIUM-HCTZ 93206201805 Active Stephy Urbina DO Active LISINOPRIL-HYDROCHLOROTHIAZIDE 20-12.5 MG TABS 1 tab by mouth da rocky LISINOPRIL-HYDROCHLOROTHIAZIDE 93821333315 No Longer Active Mitch luis DO Active LISINOPRIL 20 MG TABS 1 tab po at HS LISINOPRIL 07940602294 No Longer Active Mitch Urbina DO Active COUMADIN 5 MG TABS 1 by mouth every other day WARFARIN SODIUM 78016681682 No Longer Active Mitch Urbina DO Active COUMADIN 6 MG TABS 1 by mouth every other day WARFARIN SODIUM 34254072025 No Longer Active Mitch Urbina DO Active COLCRYS 0.6 MG TABS 1 tab qid prn gout COLCHICINE 71411604553 Active Mitch Urbina DO Active SIMVASTATIN 40 MG TABS 1 tab daily at bedtime S IMVASTATIN 95558753624 Active Mitch Urbina DO Active SIMVASTATIN 20 MG TABS 1 tab daily at bedtime S IMVASTATIN 78896371626 No Longer Active Mitch Urbina DO Active LOVENOX 100 MG/ML SC SOLN One injection twice a day 09/15/15 ENOXAPARIN SODIUM 25175367864 No Longer Active Carmine Navarrete ctive JANUVIA 50 MG TABS Take one by mouth daily DIEGO GLIPTIN PHOSPHATE 35967422989 Active Mitch Urbina DO Active JANUVIA 100 MG TABS 1/2 by mouth every day DIEGO GLIPTIN PHOSPHATE 36868440651 No Longer Active Bijal Philipp RN Active METFORMIN HCL 500 MG TABS 2 by mouth twice daily METFORMIN HCL 37721669167 Active Mitch Urbina DO Active GLIMEPIRIDE 4 MG TABS 1 tab po bid GLIMEPIRIDE 500438 06382 Active Mitch Urbina DO Active COLCRYS 0.6 MG TABS 1 po q 6 hours prn gout pain 03/02 COLCHICINE 60316764878 No Longer Active Camila Reese Active LISINOPRIL 5 MG TABS 1 by mouth every day LISIN OPRIL 44736535443 No Longer Active Nguyen Perez Active KLOR-CON 20 MEQ PACK Take one by mouth daily 8 POTASSIUM CHLORIDE 69231951431 No Longer Active Nguyen Perez Active FUROSEMIDE 40 MG TABS 1 by mouth daily FUROSEMI DE 25336092427 No Longer Active Nguyen Perez Active PROVIGIL 200 MG TABS 1/2 tab po q day MODAFINIL 30711 784682 Active Mitch Urbina DO Active PROVIGIL 100 MG TABS Take one by mouth daily MO DAFINIL 86176818569 No Longer Active Mitch Urbina DO Active BACTRIM DS 800-160 MG TAB 1 tab by mouth twice daily 2 TRIMETHOPRIM-SULFAMETHOXAZOLE 24154222589 No Longer Active Renan Hays MD Active FAMOTIDINE 20 MG TABS by mouth twice a day FAMOTI DINE 56257489034 Active Mitch Urbina DO Active ADULT ASPIRIN LOW STRENGTH 81 MG TBDP 1 by mouth every daily ASPIRIN 27077205752 Active Mitch Urbina DO Active METOPROLOL TARTRATE 50 MG TABS 1 by mouth twice daily METOPROLOL TARTRATE 66742142744 Active Mitch W Carlitos DO Active BACTRIM DS 800-160 MG TAB 1 tab by mouth twice daily 2 BACTRIM DS 800-160 MG TAB TRIMETHOPRIM-SULFAMETHOXAZOLE Inac tive PROVIGIL 100 MG TABS Take one by mouth daily 4 PROVIGIL 100 MG TABS 813225 MODAFINIL Inactive FUROSEMIDE 40 MG TABS 1 by mouth daily FU ROSEMIDE 40 MG TABS 602761 FUROSEMIDE Inactive KLOR-CON 20 MEQ PACK Take one by mouth daily 8 KLOR-CON 20 MEQ PACK 306104 POTASSIUM CHLORIDE Inactive LISINOPRIL 5 MG TABS 1 by mouth every day LISINOPRIL 5 MG TABS 277163 LISINOPRIL Inactive COLCRYS 0.6 MG TABS 1 po q 6 hours prn gout pain 03/02 COLCRYS 0.6 MG TABS COLCHICINE Inactive JANUVIA 100 MG TABS 1/2 by mouth every day JANUVI A 100 MG TABS SITAGLIPTIN PHOSPHATE Inactive SIMVASTATIN 20 MG TABS 1 tab daily at bedtime SIMVASTATIN 20 MG TABS 576868 SIMVASTATIN Inactive COUMADIN 6 MG TABS 1 by mouth every other day COUMADIN 6 MG TABS 316851 WARFARIN SODIUM Inactive COUMADIN 5 MG TABS 1 by mouth every other day COUMADIN 5 MG TABS 870655 WARFARIN SODIUM Inactive LISINOPRIL 20 MG TABS 1 tab po at HS KOKI NOPRIL 20 MG TABS 951600 LISINOPRIL Inactive LISINOPRIL-HYDROCHLOROTHIAZIDE 20-12.5 MG TABS 1 tab by mouth da rocky LISINOPRIL-HYDROCHLOROTHIAZIDE 20-12.5 MG TABS 292376 LISINOPRIL-HYDROCHLOROTHIAZIDE Inactive POLYTRIM 66795-9.1 UNIT/ML-% SOLN 1 drop in affected e ye every 3 hours while awake x 7 days POLYTRIM 13036-2.1 UNIT/ML-% SOLN 04911 7 POLYMYXIN B-TRIMETHOPRIM Inactive COUMADIN 4 MG TABS 1 tablet daily COUMADIN 4 MG TABS 292723 WARFARIN SODIUM Inactive CLONIDINE HCL 0.1 MG TABS 1 po bid 7 days, then 1/2 tab po b id 7 days CLONIDINE HCL 0.1 MG TABS 699535 CLONIDINE HCL I nactive ALLOPURINOL 300 MG TABS Take 1 tablet by mouth daily 2 ALLOPURINOL 300 MG TABS 074750 ALLOPURINOL Inactive MECLIZINE HCL 25 MG TAB 1 po tid 3 days, then 1/2 tab tid 3 days MECLIZINE HCL 25 MG TAB 899045 MECLIZINE HCL Inactive LOVENOX 100 MG/ML SC SOLN One injection twice a day 20 09/15/15 LOVENOX 100 MG/ML SC SOLN 465958 ENOXAPARIN SODIUM Inactive Vital Signs Date Name [...] normalized ratio (INR) coagulation managed by Mitch Ubrina DO Lab Report: CBC, Comp. Metabolic Panel, HGBA1C, MICROALBUMIN, Uric Acid - Chemistry sodium, serum 136 mmol/L 816-499 0170/07/25 potassium, serum 4.6 mmol/L 3.5-5.2 chloride, serum [...] Panel - Chemistry sodium, serum 137 mmol/L 337-013 3052/11/14 potassium, serum 4.4 mmol/L 3.5-5.2 chloride, serum [...] 8.0 % 4.3-6.0 cholesterol, serum 130 mg/dL 607-274 1309/11/14 triglyceride, serum, fasting 288 mg/dL 30-200 HDL cholesterol, serum 33 mg/dL 32-96 LDL cholesterol, serum 39 mg/dL 0-130 Lab Report: Comp. Metabolic Panel, HGBA1 C, Lipid Panel, Prothrombin Time - Chemistry sodium, serum 136 mmol/L 851-341 5852/12/02 potassium, serum 4.4 mmol/L 3.5-5.2 chloride, serum [...] 7.6 % 4.3-6.0 cholesterol, serum 117 mg/dL 783-711 6922/12/02 triglyceride, serum, fasting 226 mg/dL 30-200 HDL [...] 1.0-3.5 Encounters Code Encounter Date Provider Facility CPT-49398 Level 3 Est. Patient 13:53:19 ADMINISTRATIVE LIAISON Mitch luis [facility] CPT-43627 Level 3 Est. Patient 19:19:37 ADMINISTRATIVE LIAISON Mitch luis [facility] CPT-00394 Level 3 Est. Patient 13:25:53 ADMINISTRATIVE LIAISON Tavo toure MD [facility] CPT-84309 Level 3 Est. Patient 18:17:28 CDT Mitch luis [facility] CPT-23531 Level 3 Est. Patient 15:22:57 CDT Mitch luis [facility] CPT-71333 Level 3 Est. Patient 18:21:50 CDT Mitch luis [facility] CPT-42593 Level 3 Est. Patient 18:20:38 CDT Mitch luis [facility] CPT-64720 Level 3 Est. Patient 15:37:55 CDT Mitch luis [facility] CPT-90822 Level 2 Est. Patient 15:54:44 CDT Carmine benton MD [facility] CPT-87944 Level 3 Est. Patient 21:46:01 ADMINISTRATIVE LIAISON Mitch luis [facility] CPT-89159 Level 3 Est. Patient 22:15:50 CDT Mitch luis [facility] CPT-16976 Level 3 Est. Patient 10:48:15 CDT Mitch luis [facility] CPT-06214 Level 3 Est. Patient 23:20:57 CDT Tavo toure MD [facility] CPT-73251 Level 3 Est. Patient 16:26:13 CDT Mitch luis [facility] Procedures Code Procedure Name Date Entry Date Standard Desc ription CPT-58653 Venipuncture Draw Fee 10:13:28 ADMINISTRATIVE LIAISON CPT-54430 Venipuncture Draw Fee 08:31:11 CDT CPT-33605 Aspir/Inject Med Joint 18:17:28 CDT CPT-24060 Venipuncture Draw Fee 10:13:30 CDT CPT-50856 Venipuncture Draw Fee 08:31:43 ADMINISTRATIVE LIAISON CPT-JTINJ Joint Injection 18:34:50 CDT CPT-51815 Knee 3V 12:25:09 CDT CPT-79241 Venipuncture Draw Fee 12:15:57 CDT CPT-060 Medical Surveillance Exam 21:31:43 CDT 2011 CPT-42686 Venipuncture Draw Fee 08:32:05 ADMINISTRATIVE LIAISON CPT-OV Office Visit 18:19:06 CDT
--- OUTSIDE RECORDS SUMMARY | 2020-01-18 12:38 | XMS REPORT | Clinical Summary ---
Author Author Admin, Mitch Leon Organization [facility] Address Unknown Phone Unavailable Allergies, Adverse [...] Coronary atherosclerosis of unspecified type of vessel, [place] or graft EDEMA 782.3 Active Mitch Urbina [...] 1 tablet by mouth daily AMLODIPINE BESYLATE 64720751117 Active Mitch Urbina DO Active MECLIZINE HCL 25 MG TAB 1 po tid 3 days, then 1/2 tab tid 3 days MECLIZINE HCL 42586498351 No Longer Active Corey SEGURA Active ALLOPURINOL 300 MG TABS Take 1 tablet by mouth daily 2 ALLOPURINOL 25432077922 No Longer Active Corey SEGURA Activ e CLONIDINE HCL 0.1 MG TABS 1 po bid 7 days, then 1/2 tab po b id 7 days CLONIDINE HCL 08190361430 No Longer Active Corey SEGURA Active COUMADIN 5 MG TABS 1 tab PO daily WARFARIN SODIUM 67805573959 Active Mitch Urbina DO Active COUMADIN 4 MG TABS 1 tablet daily WARFARIN SODI UM 67931455941 No Longer Active Corey SEGURA Active POLYTRIM 67248-9.1 UNIT/ML-% SOLN 1 drop in affected e ye every 3 hours while awake x 7 days POLYMYXIN B-TRIMETHOPRIM 92924723100 N o Longer Active Corey SEGURA Active LOSARTAN POTASSIUM-HCTZ 100-12.5 MG TABS 1 by mouth da [place] for high blood pressure LOSARTAN POTASSIUM-HCTZ 91861395731 Active Stephy Urbina DO Active LISINOPRIL-HYDROCHLOROTHIAZIDE 20-12.5 MG TABS 1 tab by mouth da rocky LISINOPRIL-HYDROCHLOROTHIAZIDE 28025762356 No Longer Active Mitch luis DO Active LISINOPRIL 20 MG TABS 1 tab po at HS LISINOPRIL 69831760057 No Longer Active Mitch Urbina DO Active COUMADIN 5 MG TABS 1 by mouth every other day WARFARIN SODIUM 88587954287 No Longer Active Mitch Urbina DO Active COUMADIN 6 MG TABS 1 by mouth every other day WARFARIN SODIUM 20842497875 No Longer Active Mitch Urbina DO Active COLCRYS 0.6 MG TABS 1 tab qid prn gout COLCHICINE 22312477841 Active Mitch Urbina DO Active SIMVASTATIN 40 MG TABS 1 tab daily at bedtime S IMVASTATIN 68766516717 Active Mitch Urbina DO Active SIMVASTATIN 20 MG TABS 1 tab daily at bedtime S IMVASTATIN 90682729164 No Longer Active Mitch Urbina DO Active LOVENOX 100 MG/ML SC SOLN One injection twice a day 09/15/15 ENOXAPARIN SODIUM 12620579483 No Longer Active Carmine Navarrete ctive JANUVIA 50 MG TABS Take one by mouth daily DIEGO GLIPTIN PHOSPHATE 96155827904 Active Mitch Urbina DO Active JANUVIA 100 MG TABS 1/2 by mouth every day DIEGO GLIPTIN PHOSPHATE 57477346964 No Longer Active Bijal Philipp RN Active METFORMIN HCL 500 MG TABS 2 by mouth twice daily METFORMIN HCL 81934667186 Active Mitch Urbina DO Active GLIMEPIRIDE 4 MG TABS 1 tab po bid GLIMEPIRIDE 292152 37253 Active Mitch Urbina DO Active COLCRYS 0.6 MG TABS 1 po q 6 hours prn gout pain 03/02 COLCHICINE 39412528128 No Longer Active Camila Reese Active LISINOPRIL 5 MG TABS 1 by mouth every day LISIN OPRIL 21160965907 No Longer Active Nguyenmolly Perez Active KLOR-CON 20 MEQ PACK Take one by mouth daily 8 POTASSIUM CHLORIDE 29210043118 No Longer Active Nguyen Perez Active FUROSEMIDE 40 MG TABS 1 by mouth daily FUROSEMI DE 70072269372 No Longer Active Nguyen Perez Active PROVIGIL 200 MG TABS 1/2 tab po q day MODAFINIL 61765 904079 Active Mitch Urbina DO Active PROVIGIL 100 MG TABS Take one by mouth daily MO DAFINIL 27101600531 No Longer Active Mitch Urbina DO Active BACTRIM DS 800-160 MG TAB 1 tab by mouth twice daily 2 TRIMETHOPRIM-SULFAMETHOXAZOLE 12872184790 No Longer Active Renan Hays MD Active FAMOTIDINE 20 MG TABS by mouth twice a day FAMOTI DINE 22264836899 Active Mitch Urbina DO Active ADULT ASPIRIN LOW STRENGTH 81 MG TBDP 1 by mouth every daily ASPIRIN 59730758944 Active Mitch Urbina DO Active METOPROLOL TARTRATE 50 MG TABS 1 by mouth twice daily METOPROLOL TARTRATE 53497236750 Active Mitch W Carlitos DO Active BACTRIM DS 800-160 MG TAB 1 tab by mouth twice daily 2 BACTRIM DS 800-160 MG TAB TRIMETHOPRIM-SULFAMETHOXAZOLE Inac tive PROVIGIL 100 MG TABS Take one by mouth daily 4 PROVIGIL 100 MG TABS 096874 MODAFINIL Inactive FUROSEMIDE 40 MG TABS 1 by mouth daily FU ROSEMIDE 40 MG TABS 804862 FUROSEMIDE Inactive KLOR-CON 20 MEQ PACK Take one by mouth daily 8 KLOR-CON 20 MEQ PACK 197900 POTASSIUM CHLORIDE Inactive LISINOPRIL 5 MG TABS 1 by mouth every day LISINOPRIL 5 MG TABS 803179 LISINOPRIL Inactive COLCRYS 0.6 MG TABS 1 po q 6 hours prn gout pain 03/02 COLCRYS 0.6 MG TABS COLCHICINE Inactive JANUVIA 100 MG TABS 1/2 by mouth every day JANUVI A 100 MG TABS SITAGLIPTIN PHOSPHATE Inactive SIMVASTATIN 20 MG TABS 1 tab daily at bedtime SIMVASTATIN 20 MG TABS 320887 SIMVASTATIN Inactive COUMADIN 6 MG TABS 1 by mouth every other day COUMADIN 6 MG TABS 245119 WARFARIN SODIUM Inactive COUMADIN 5 MG TABS 1 by mouth every other day COUMADIN 5 MG TABS 077666 WARFARIN SODIUM Inactive LISINOPRIL 20 MG TABS 1 tab po at HS KOKI NOPRIL 20 MG TABS 003652 LISINOPRIL Inactive LISINOPRIL-HYDROCHLOROTHIAZIDE 20-12.5 MG TABS 1 tab by mouth da rocky LISINOPRIL-HYDROCHLOROTHIAZIDE 20-12.5 MG TABS 237130 LISINOPRIL-HYDROCHLOROTHIAZIDE Inactive POLYTRIM 99660-6.1 UNIT/ML-% SOLN 1 drop in affected e ye every 3 hours while awake x 7 days POLYTRIM 79485-1.1 UNIT/ML-% SOLN 28487 7 POLYMYXIN B-TRIMETHOPRIM Inactive COUMADIN 4 MG TABS 1 tablet daily COUMADIN 4 MG TABS 319360 WARFARIN SODIUM Inactive CLONIDINE HCL 0.1 MG TABS 1 po bid 7 days, then 1/2 tab po b id 7 days CLONIDINE HCL 0.1 MG TABS 962660 CLONIDINE HCL I nactive ALLOPURINOL 300 MG TABS Take 1 tablet by mouth daily 2 ALLOPURINOL 300 MG TABS 086555 ALLOPURINOL Inactive MECLIZINE HCL 25 MG TAB 1 po tid 3 days, then 1/2 tab tid 3 days MECLIZINE HCL 25 MG TAB 395187 MECLIZINE HCL Inactive LOVENOX 100 MG/ML SC SOLN One injection twice a day 09/15/15 LOVENOX 100 MG/ML SC SOLN 749386 ENOXAPARIN SODIUM Inactive Vital Signs Date Name [...] 10.3 mg/dL 2.6-7.2 sodium, serum 136 mmol/L 930-392 9224/07/25 potassium, serum 4.6 mmol/L 3.5-5.2 chloride, serum [...] Panel - Chemistry sodium, serum 137 mmol/L 725-074 1091/11/14 potassium, serum 4.4 mmol/L 3.5-5.2 chloride, serum [...] 8.0 % 4.3-6.0 cholesterol, serum 130 mg/dL 360-067 1297/11/14 triglyceride, serum, fasting 288 mg/dL 30-200 HDL cholesterol, serum 33 mg/dL 32-96 LDL cholesterol, serum 39 mg/dL 0-130 Lab Report: Comp. Metabolic Panel, HGBA1 C, Lipid Panel, Prothrombin Time - Chemistry chloride, serum 101 mmol/L 98-107 carbon dioxide, venous blood 29.0 mmol/L 21.0-32 .0 urea nitrogen, blood 29 mg/dL 7-18 sodium, serum 136 mmol/L 186-948 7066/12/02 potassium, serum 4.4 mmol/L 3.5-5.2 blood glucose 149 mg/dL 65-110 creatinine, serum 1.20 mg/dL 0.60-1.30 alanine aminotransferase (SGPT), serum 46 U/L 12-78 aspartate aminotransferase (SGOT), serum 34 U/L 15-37 calcium, serum 10.3 mg/dL 8.5-10.1 bilirubin, serum, total 0.60 mg/dL 0.00-1.00 hemoglobin A1C, blood, as % of total hemoglobin 7.6 % 4.3-6.0 cholesterol, serum 117 mg/dL 603-466 5511/12/02 triglyceride, serum, fasting 226 mg/dL 30-200 HDL [...] ratio (INR) 2.6 1.0-3.5 prothrombin time (patient) 16.8 SECS s 11.1-13.4 international normalized ratio (INR) 2.2 1.0-3.5 prothrombin time (patient) 18.4 SECS s 11.1-13.4 prothrombin time (patient) 16.0 SECS s 11.1-13.4 international normalized ratio (INR) 1.7 1.0-3.5 Encounters Code Encounter Date Provider Facility CPT-70625 Level 3 Est. Patient 17:01:00 AGRICULTURE TEACHER Mitch Ambrose L janelle [facility] CPT-95713 Level 3 Est. Patient 13:53:19 AGRICULTURE TEACHER Mitch Ambrose L ee DO [facility] CPT-72778 Level 3 Est. Patient 19:19:37 AGRICULTURE TEACHER Mitch W L ee [facility] CPT-03452 Level 3 Est. Patient 13:25:53 AGRICULTURE TEACHER Tavo toure MD [facility]-27681 Level 3 Est. Patient 18:17:28 CDT Mitch W L ee [facility] CPT-27046 Level 3 Est. Patient 15:22:57 CDT Mitch W L ee [facility] CPT-88753 Level 3 Est. Patient 18:21:50 CDT Mitch W L ee [facility]-66073 Level 3 Est. Patient 18:20:38 CDT Mitch W L janelle [facility] CPT-75915 Level 3 Est. Patient 15:37:55 CDT Mitch W L ee [facility] CPT-48549 Level 2 Est. Patient 15:54:44 CDT Carmine benton MD [facility]-69628 Level 3 Est. Patient 21:46:01 AGRICULTURE TEACHER Mitch W L janelle [facility] CPT-16898 Level 3 Est. Patient 22:15:50 CDT Mitch W L janelle [facility] CPT-46455 Level 3 Est. Patient 10:48:15 CDT Mitch W L ee [facility] CPT-66517 Level 3 Est. Patient 23:20:57 CDT Tavo toure MD [facility] CPT-74195 Level 3 Est. Patient 16:26:13 CDT Mitch luis [facility] Procedures Code Procedure Name Date Entry Date Standard Desc ription CPT-37976 Venipuncture Draw Fee 10:13:28 AGRICULTURE TEACHER CPT-35297 Venipuncture Draw Fee 08:31:11 CDT CPT-39071 Aspir/Inject Med Joint 18:17:28 CDT CPT-14495 Venipuncture Draw Fee 10:13:30 CDT CPT-67936 Venipuncture Draw Fee 08:31:43 AGRICULTURE TEACHER CPT-JTINJ Joint Injection 18:34:50 CDT CPT-65733 Knee 3V 12:25:09 CDT CPT-71427 Venipuncture Draw Fee 12:15:57 CDT CPT-060 Medical Surveillance Exam 21:31:43 CDT 2011 CPT-38892 Venipuncture Draw Fee 08:32:05 AGRICULTURE TEACHER CPT-OV Office Visit 18:19:06 CDT
--- OUTSIDE RECORDS SUMMARY | 2020-01-18 12:38 | XMS REPORT | Clinical Summary ---
Author Author Admin, Mitch Leon Organization [facility] Address Unknown Phone Unavailable Allergies, Adverse [...] Coronary atherosclerosis of unspecified type of vessel, blackfeet or graft EDEMA 782.3 Resolved Mitch Urbina [...] 1 tablet by mouth daily AMLODIPINE BESYLATE 87213137120 No Longer Active Joe Williamson APRN Active MITIGARE 0.6 MG ORAL CAPS 2 capsules at onset of gout pain, then take one capsule at 1 hour if symptoms persist. COLCHICINE 59 299863754 Active Mitch Urbina DO Active COUMADIN 1 MG TAB 2 tabs orally daily with the 5mg tab to equal 7mg daily WARFARIN SODIUM 71726058127 Active Mitch Urbina DO Active COLCRYS 0.6 MG TABS 1 tab qid prn gout COLCHICINE 28201411410 Active Norma Sage Active INVOKANA 100 MG ORAL TABS 1 tablet orally daily CANAGLIFLOZIN 39228246190 Active Mitch Urbina DO Active MINOXIDIL 2.5 MG TABS 1 tablet daily for high blood pressure 10/23 MINOXIDIL 96862016070 Active Mitch Urbina DO Active MECLIZINE HCL 25 MG TAB 1 po tid 3 days, then 1/2 tab tid 3 days MECLIZINE HCL 70116237592 No Longer Active Corey SEGURA Active ALLOPURINOL 300 MG TABS Take 1 tablet by mouth daily 2 ALLOPURINOL 12979634586 No Longer Active Corey SEGURA Activ e CLONIDINE HCL 0.1 MG TABS 1 po bid 7 days, then 1/2 tab po b id 7 days CLONIDINE HCL 35946250922 No Longer Active Corey SEGURA Active COUMADIN 5 MG TABS 1 tab PO daily WARFARIN SODIUM 71464834425 Active Mitch Urbina DO Active COUMADIN 4 MG TABS 1 tablet daily WARFARIN SODI UM 62431221053 No Longer Active Corey SEGURA Active POLYTRIM 89869-2.1 UNIT/ML-% SOLN 1 drop in affected e ye every 3 hours while awake x 7 days POLYMYXIN B-TRIMETHOPRIM 07827713709 N o Longer Active Corey SEGURA Active LOSARTAN POTASSIUM-HCTZ 100-12.5 MG TABS 1 by mouth da rocky for high blood pressure LOSARTAN POTASSIUM-HCTZ 92713924912 Active Stephy Urbina DO Active LISINOPRIL-HYDROCHLOROTHIAZIDE 20-12.5 MG TABS 1 tab by mouth da rocky LISINOPRIL-HYDROCHLOROTHIAZIDE 66779636635 No Longer Active Mitch luis DO Active LISINOPRIL 20 MG TABS 1 tab po at HS LISINOPRIL 83326340066 No Longer Active Mitch Urbina DO Active COUMADIN 5 MG TABS 1 by mouth every other day WARFARIN SODIUM 70017940886 No Longer Active Mitch Urbina DO Active COUMADIN 6 MG TABS 1 by mouth every other day WARFARIN SODIUM 41199808315 No Longer Active Mitch Urbina DO Active SIMVASTATIN 40 MG TABS 1 tab daily at bedtime S IMVASTATIN 76928435065 Active Mitch Urbina DO Active SIMVASTATIN 20 MG TABS 1 tab daily at bedtime S IMVASTATIN 95338528195 No Longer Active Mitch Urbina DO Active LOVENOX 100 MG/ML SC SOLN One injection twice a day 09/15/15 ENOXAPARIN SODIUM 93836695073 No Longer Active Carmine Navarrete ctive JANUVIA 50 MG TABS Take one by mouth daily DIEGO GLIPTIN PHOSPHATE 47852620055 Active Mitch Urbina DO Active JANUVIA 100 MG TABS 1/2 by mouth every day DIEGO GLIPTIN PHOSPHATE 56916333459 No Longer Active Bijal Segal RN Active METFORMIN HCL 500 MG TABS 2 by mouth twice daily METFORMIN HCL 77335573111 Active Mitch Urbina DO Active GLIMEPIRIDE 4 MG TABS 1 tab po bid GLIMEPIRIDE 343543 09100 Active Mitch Urbina DO Active COLCRYS 0.6 MG TABS 1 po q 6 hours prn gout pain 03/02 COLCHICINE 12592298558 No Longer Active Camila Reese Active LISINOPRIL 5 MG TABS 1 by mouth every day LISIN OPRIL 85898082299 No Longer Active Nguyen Perez Active KLOR-CON 20 MEQ PACK Take one by mouth daily 8 POTASSIUM CHLORIDE 05675754288 No Longer Active Nguyen Perez Active FUROSEMIDE 40 MG TABS 1 by mouth daily FUROSEMI DE 83047684183 No Longer Active Nguyen Perez Active PROVIGIL 200 MG TABS 1/2 tab po q day MODAFINIL 05489 667034 Active Mitch Urbina DO Active PROVIGIL 100 MG TABS Take one by mouth daily MO DAFINIL 01994782665 No Longer Active Mitch Urbina DO Active BACTRIM DS 800-160 MG TAB 1 tab by mouth twice daily 2 TRIMETHOPRIM-SULFAMETHOXAZOLE 41063263008 No Longer Active Renan Hays MD Active FAMOTIDINE 20 MG TABS by mouth twice a day FAMOTI DINE 79099355273 Active Mitch Urbina DO Active ADULT ASPIRIN LOW STRENGTH 81 MG TBDP 1 by mouth every daily ASPIRIN 06112159375 Active Mitch Urbina DO Active METOPROLOL TARTRATE 50 MG TABS 1 by mouth twice daily METOPROLOL TARTRATE 74133127784 Active Mitch Urbina DO Active BACTRIM DS 800-160 MG TAB 1 tab by mouth twice daily 2 BACTRIM DS 800-160 MG TAB 881576 TRIMETHOPRIM-SULFAMETHOXAZOLE Inac tive PROVIGIL 100 MG TABS Take one by mouth daily 4 PROVIGIL 100 MG TABS 925086 MODAFINIL Inactive FUROSEMIDE 40 MG TABS 1 by mouth daily FU ROSEMIDE 40 MG TABS 125067 FUROSEMIDE Inactive KLOR-CON 20 MEQ PACK Take one by mouth daily 8 KLOR-CON 20 MEQ PACK 1018965 POTASSIUM CHLORIDE Inactive LISINOPRIL 5 MG TABS 1 by mouth every day LISINOPRIL 5 MG TABS 545622 LISINOPRIL Inactive COLCRYS 0.6 MG TABS 1 po q 6 hours prn gout pain 03/02 COLCRYS 0.6 MG TABS 068441 COLCHICINE Inactive JANUVIA 100 MG TABS 1/2 by mouth every day JANUVI A 100 MG TABS SITAGLIPTIN PHOSPHATE Inactive SIMVASTATIN 20 MG TABS 1 tab daily at bedtime SIMVASTATIN 20 MG TABS 869316 SIMVASTATIN Inactive COUMADIN 6 MG TABS 1 by mouth every other day COUMADIN 6 MG TABS 272289 WARFARIN SODIUM Inactive COUMADIN 5 MG TABS 1 by mouth every other day COUMADIN 5 MG TABS 975785 WARFARIN SODIUM Inactive LISINOPRIL 20 MG TABS 1 tab po at HS KOKI NOPRIL 20 MG TABS 950188 LISINOPRIL Inactive LISINOPRIL-HYDROCHLOROTHIAZIDE 20-12.5 MG TABS 1 tab by mouth da rocky LISINOPRIL-HYDROCHLOROTHIAZIDE 20-12.5 MG TABS 171949 LISINOPRIL-HYDROCHLOROTHIAZIDE Inactive POLYTRIM 88095-6.1 UNIT/ML-% SOLN 1 drop in affected e ye every 3 hours while awake x 7 days POLYTRIM 48957-7.1 UNIT/ML-% SOLN 63696 7 POLYMYXIN B-TRIMETHOPRIM Inactive COUMADIN 4 MG TABS 1 tablet daily COUMADIN 4 MG TABS 396745 WARFARIN SODIUM Inactive CLONIDINE HCL 0.1 MG TABS 1 po bid 7 days, then 1/2 tab po b id 7 days CLONIDINE HCL 0.1 MG TABS 783386 CLONIDINE HCL I nactive ALLOPURINOL 300 MG TABS Take 1 tablet by mouth daily 2 ALLOPURINOL 300 MG TABS 398620 ALLOPURINOL Inactive MECLIZINE HCL 25 MG TAB 1 po tid 3 days, then 1/2 tab tid 3 days MECLIZINE HCL 25 MG TAB 203345 MECLIZINE HCL Inactive AMLODIPINE BESYLATE 5 MG TABS 1 tablet by mouth daily AMLODIPINE BESYLATE 5 MG TABS 635688 AMLODIPINE BESYLATE Inactive LOVENOX 100 MG/ML SC SOLN One injection twice a day 09/15/15 LOVENOX 100 MG/ML SC SOLN 337888 ENOXAPARIN SODIUM Inactive Vital Signs Date Name [...] Range Description Chart Maintenance: hemoccult added to [facility] - Chemistry occult blood, stool [...] ... - Chemistry sodium, serum 144 mmol/L 232-503 7552/06/12 carbon dioxide, venous blood 26.6 mmol/L 21.0-32 [...] CBC - Chemistry cholesterol, serum 136 mg/dL 045-103 6528/08/09 triglyceride, serum, fasting 187 mg/dL 30-200 HDL [...] 1.0-3.5 Encounters Code Encounter Date Provider Facility CPT-47683 Level 4 Est. Patient 09:30:18 CDT Mitch luis [facility] CPT-06572 Level 3 Est. Patient 15:10:14 CDT Joe kamara [facility] CPT-00453 Level 3 Est. Patient 15:03:46 CDT Joe kamara [facility] CPT-29760 Level 3 Est. Patient 14:21:06 CDT Mitch luis [facility] CPT-18388 Level 3 Est. Patient 14:52:06 CDT Joe kamara [facility] CPT-34378 Level 3 Est. Patient 09:34:30 [employer] L[employer] TECHNICIAN Mitch luis [facility] CPT-54156 Level 3 Est. Patient 09:37:15 CDT Mitch luis [facility] CPT-70686 Level 3 Est. Patient 17:01:00 [employer] L[employer] TECHNICIAN Mitch luis [facility] CPT-43478 Level 3 Est. Patient 13:53:19 [employer] TECHNICIAN Mitch luis [facility] CPT-42747 Level 3 Est. Patient 19:19:37 [employer] TECHNICIAN Mitch luis [facility] CPT-41213 Level 3 Est. Patient 13:25:53 [employer] TECHNICIAN Tavo toure MD [facility] CPT-94663 Level 3 Est. Patient 18:17:28 CDT Mitch luis [facility] CPT-66913 Level 3 Est. Patient 15:22:57 CDT Mitch luis [facility] CPT-25893 Level 3 Est. Patient 18:21:50 CDT Mitch luis [facility] CPT-46472 Level 3 Est. Patient 18:20:38 CDT Mitch luis [facility] CPT-85803 Level 3 Est. Patient 15:37:55 CDT Mitch luis [facility] CPT-39004 Level 2 Est. Patient 15:54:44 CDT Carmine benton MD [facility] CPT-88801 Level 3 Est. Patient 21:46:01 [employer] TECHNICIAN Mitch luis [facility] CPT-32668 Level 3 Est. Patient 22:15:50 CDT Mitch luis [facility] CPT-26777 Level 3 Est. Patient 10:48:15 CDT Mitch luis [facility] CPT-21590 Level 3 Est. Patient 23:20:57 CDT Tavo toure MD [facility] CPT-19361 Level 3 Est. Patient 16:26:13 CDT Mitch Castellano janelle [facility] Procedures Code Procedure Name Date Entry Date Standard Desc ription CPT-23195 Venipuncture Draw Fee 09:26:17 CDT CPT-03428 PT/INR - LAB USE ONLY 13:32:49 [employer] TECHNICIAN CPT-61341 Venipuncture Draw Fee 13:32:49 [employer] TECHNICIAN CPT-56307 PT/INR - LAB USE ONLY 10:34:49 [employer] TECHNICIAN CPT-97451 Venipuncture Draw Fee 10:34:48 [employer] TECHNICIAN CPT-59395 PT/INR - LAB USE ONLY 09:22:03 [employer] TECHNICIAN CPT-33481 Venipuncture Draw Fee 09:22:02 [employer] TECHNICIAN CPT-76958 Hemoccult IFOBT - LAB USE ONLY 10:27:22 CDT CPT-47994 Venipuncture Draw Fee 08:27:08 CDT CPT-75538 Liver Profile - LAB USE ONLY 08:27:07 CDT 2 CPT-56706 Microalbumin - LAB USE ONLY 08:27:07 CDT 20 25/05/09 CPT-09270 PT/INR - LAB USE ONLY 08:27:07 CDT CPT-46957 HGBA1C - LAB USE ONLY 08:27:07 CDT CPT-09297 CBC - LAB USE ONLY 08:27:07 CDT CPT-69643 Venipuncture Draw Fee 11:09:14 CDT CPT-21430 Venipuncture Draw Fee 08:32:21 [employer] TECHNICIAN CPT-92399 Venipuncture Draw Fee 09:38:56 [employer] TECHNICIAN CPT-20793 No Charge Offi Visit 21:36:07 CDT 1 CPT-51982 Venipuncture Draw Fee 10:13:28 [employer] TECHNICIAN CPT-99216 Venipuncture Draw Fee 08:31:11 CDT CPT-93870 Aspir/Inject Med Joint 18:17:28 CDT CPT-60773 Venipuncture Draw Fee 10:13:30 CDT CPT-44684 Venipuncture Draw Fee 08:31:43 [employer] TECHNICIAN CPT-JTINJ Joint Injection 18:34:50 CDT CPT-31673 Knee 3V 12:25:09 CDT CPT-64548 Venipuncture Draw Fee 12:15:57 CDT CPT-060 Medical Surveillance Exam 21:31:43 CDT 2011 CPT-28938 Venipuncture Draw Fee 08:32:05 [employer] L[employer] TECHNICIAN CPT-OV Office Visit 18:19:06 CDT
--- OUTSIDE RECORDS SUMMARY | 2020-01-18 12:38 | XMS REPORT | Clinical Summary ---
Author Author Admin, Mitch Leon Organization [facility] Address Unknown Phone Allergies, Adverse Reactions, Alerts [...] Coronary atherosclerosis of unspecified type of vessel, [place] or graft EDEMA 782.3 Active Mitch Kilpatrick [...] 1/2 tab tid 3 days MECLIZINE HCL 84697202424 No Longer Active Corey SEGURA Active ALLOPURINOL 300 MG TABS Take 1 tablet by mouth daily 2 ALLOPURINOL 95284007723 No Longer Active Corey SEGURA Activ e CLONIDINE HCL 0.1 MG TABS 1 po bid 7 days, then 1/2 tab po b id 7 days CLONIDINE HCL 27808805481 No Longer Active Corey SEGURA Active COUMADIN 5 MG TABS 1 tab PO daily WARFARIN SODIUM 68018713018 Active Mitch Urbina DO Active COUMADIN 4 MG TABS 1 tablet daily WARFARIN SODI UM 72190973167 No Longer Active Corey SEGURA Active POLYTRIM 60527-6.1 UNIT/ML-% SOLN 1 drop in affected e ye every 3 hours while awake x 7 days POLYMYXIN B-TRIMETHOPRIM 92425702727 N o Longer Active Corey SEGURA Active LOSARTAN POTASSIUM-HCTZ 100-12.5 MG TABS 1 by mouth da [place] for high blood pressure LOSARTAN POTASSIUM-HCTZ 33573704843 Active Stephy Urbina DO Active LISINOPRIL-HYDROCHLOROTHIAZIDE 20-12.5 MG TABS 1 tab by mouth da rocky LISINOPRIL-HYDROCHLOROTHIAZIDE 82250224103 No Longer Active Mitch luis DO Active LISINOPRIL 20 MG TABS 1 tab po at HS LISINOPRIL 12428693828 No Longer Active Mitch Urbina DO Active COUMADIN 5 MG TABS 1 by mouth every other day WARFARIN SODIUM 72832053550 No Longer Active Mitch Urbina DO Active COUMADIN 6 MG TABS 1 by mouth every other day WARFARIN SODIUM 76779957238 No Longer Active Mitch Urbina DO Active COLCRYS 0.6 MG TABS 1 tab qid prn gout COLCHICINE 39559764631 Active Mitch Urbina DO Active SIMVASTATIN 40 MG TABS 1 tab daily at bedtime S IMVASTATIN 10746134842 Active Mitch Urbina DO Active SIMVASTATIN 20 MG TABS 1 tab daily at bedtime S IMVASTATIN 97308892259 No Longer Active Mitch Urbina DO Active LOVENOX 100 MG/ML SC SOLN One injection twice a day 09/15/15 ENOXAPARIN SODIUM 07484174173 No Longer Active Carmine Navarrete ctive JANUVIA 50 MG TABS Take one by mouth daily DIEGO GLIPTIN PHOSPHATE 39120255164 Active Mitch Urbina DO Active JANUVIA 100 MG TABS 1/2 by mouth every day DIEGO GLIPTIN PHOSPHATE 74205420142 No Longer Active Bijal Philipp RN Active METFORMIN HCL 500 MG TABS 2 by mouth twice daily METFORMIN HCL 22505370561 Active Curly Coker MD Active GLIMEPIRIDE 4 MG TABS 1 tab po bid GLIMEPIRIDE 095484 03093 Active Mitch Urbina DO Active COLCRYS 0.6 MG TABS 1 po q 6 hours prn gout pain 03/02 COLCHICINE 81365101423 No Longer Active Camila Hugh Active LISINOPRIL 5 MG TABS 1 by mouth every day LISIN OPRIL 35175508424 No Longer Active Nguyenmolly Perez Active KLOR-CON 20 MEQ PACK Take one by mouth daily 8 POTASSIUM CHLORIDE 44074038023 No Longer Active Nguyen Perez Active FUROSEMIDE 40 MG TABS 1 by mouth daily FUROSEMI DE 18541156444 No Longer Active Nguyen Perez Active PROVIGIL 200 MG TABS 1/2 tab po q day MODAFINIL 20521 088876 Active Mitch Urbina DO Active PROVIGIL 100 MG TABS Take one by mouth daily MO DAFINIL 36129318957 No Longer Active Mitch Urbina DO Active BACTRIM DS 800-160 MG TAB 1 tab by mouth twice daily TRIMETHOPRIM-SULFAMETHOXAZOLE 33416741478 No Longer Active Renan Hays MD Active FAMOTIDINE 20 MG TABS by mouth twice a day FAMOTI DINE 43735739628 Active Mitch Urbina DO Active ADULT ASPIRIN LOW STRENGTH 81 MG TBDP 1 by mouth every daily ASPIRIN 57086124484 Active Mitch Urbina DO Active METOPROLOL TARTRATE 50 MG TABS 1 by mouth twice daily METOPROLOL TARTRATE 93794214156 Active Mitch Urbina DO Active BACTRIM DS 800-160 MG TAB 1 tab by mouth twice daily 2 BACTRIM DS 800-160 MG TAB TRIMETHOPRIM-SULFAMETHOXAZOLE Inac tive PROVIGIL 100 MG TABS Take one by mouth daily 4 PROVIGIL 100 MG TABS 139621 MODAFINIL Inactive FUROSEMIDE 40 MG TABS 1 by mouth daily FU ROSEMIDE 40 MG TABS 006121 FUROSEMIDE Inactive KLOR-CON 20 MEQ PACK Take one by mouth daily 8 KLOR-CON 20 MEQ PACK 657305 POTASSIUM CHLORIDE Inactive LISINOPRIL 5 MG TABS 1 by mouth every day LISINOPRIL 5 MG TABS 343415 LISINOPRIL Inactive COLCRYS 0.6 MG TABS 1 po q 6 hours prn gout pain 03/02 COLCRYS 0.6 MG TABS COLCHICINE Inactive JANUVIA 100 MG TABS 1/2 by mouth every day JANUVI A 100 MG TABS SITAGLIPTIN PHOSPHATE Inactive SIMVASTATIN 20 MG TABS 1 tab daily at bedtime SIMVASTATIN 20 MG TABS 422529 SIMVASTATIN Inactive COUMADIN 6 MG TABS 1 by mouth every other day COUMADIN 6 MG TABS 344460 WARFARIN SODIUM Inactive COUMADIN 5 MG TABS 1 by mouth every other day COUMADIN 5 MG TABS 291728 WARFARIN SODIUM Inactive LISINOPRIL 20 MG TABS 1 tab po at HS KOKI NOPRIL 20 MG TABS 865649 LISINOPRIL Inactive LISINOPRIL-HYDROCHLOROTHIAZIDE 20-12.5 MG TABS 1 tab by mouth da rocky LISINOPRIL-HYDROCHLOROTHIAZIDE 20-12.5 MG TABS 332414 LISINOPRIL-HYDROCHLOROTHIAZIDE Inactive POLYTRIM 24230-3.1 UNIT/ML-% SOLN 1 drop in affected e ye every 3 hours while awake x 7 days POLYTRIM 98393-8.1 UNIT/ML-% SOLN 85071 7 POLYMYXIN B-TRIMETHOPRIM Inactive COUMADIN 4 MG TABS 1 tablet daily COUMADIN 4 MG TABS 590984 WARFARIN SODIUM Inactive CLONIDINE HCL 0.1 MG TABS 1 po bid 7 days, then 1/2 tab po b id 7 days CLONIDINE HCL 0.1 MG TABS 542791 CLONIDINE HCL I nactive ALLOPURINOL 300 MG TABS Take 1 tablet by mouth daily 2 ALLOPURINOL 300 MG TABS 858628 ALLOPURINOL Inactive MECLIZINE HCL 25 MG TAB 1 po tid 3 days, then 1/2 tab tid 3 days MECLIZINE HCL 25 MG TAB 128090 MECLIZINE HCL Inactive LOVENOX 100 MG/ML SC SOLN One injection twice a day 09/15/15 LOVENOX 100 MG/ML SC SOLN 666910 ENOXAPARIN SODIUM Inactive Vital Signs Date Name [...] weight E&M 237 [lb_av] Weight Measure d blood pressure, diastolic 91 mm[Hg] BP mane blood pressure, systolic 200 mm[Hg] BP sys height E&M 70 [in_us] Bdy height pulse rate E&M 80 /min Heart rate temperature E&M 98.1 [degF] Body temp erature weight E&M 246.25 [lb_av] Weight Measure d Diagnostic Results Date [...] 6.9 % 4.3-6.0 cholesterol, serum 108 mg/dL 104-884 7476/11/01 triglyceride, serum, fasting 112 mg/dL 30-200 HDL [...] 1.0-3.5 Encounters Code Encounter Date Provider Facility CPT-74048 Level 3 Est. Patient 13:53:19 STRIP PICKER Mitch luis [facility] CPT-03672 Level 3 Est. Patient 19:19:37 STRIP PICKER Mitch luis [facility] CPT-51610 Level 3 Est. Patient 13:25:53 STRIP PICKER Tavo toure MD [facility] CPT-83611 Level 3 Est. Patient 18:17:28 CDT Mitch luis [facility] CPT-66959 Level 3 Est. Patient 15:22:57 CDT Mitch luis [facility] CPT-78103 Level 3 Est. Patient 18:21:50 CDT Mitch luis [facility] CPT-57180 Level 3 Est. Patient 18:20:38 CDT Mitch luis [facility] CPT-94448 Level 3 Est. Patient 15:37:55 CDT Mitch luis [facility] CPT-66476 Level 2 Est. Patient 15:54:44 CDT Carmine benton MD [facility] CPT-44911 Level 3 Est. Patient 21:46:01 STRIP PICKER Mitch luis [facility] CPT-55103 Level 3 Est. Patient 22:15:50 CDT Mitch Arnol luis [facility] CPT-79352 Level 3 Est. Patient 10:48:15 CDT Mitch luis [facility] CPT-54878 Level 3 Est. Patient 23:20:57 CDT Tavo toure MD [facility] CPT-77203 Level 3 Est. Patient 16:26:13 CDT Mitch Ambrose Nona janelle [facility] Procedures Code Procedure Name Date Entry Date Standard Desc ription CPT-83763 Venipuncture Draw Fee 10:13:28 STRIP PICKER CPT-65436 Venipuncture Draw Fee 08:31:11 CDT CPT-22832 Aspir/Inject Med Joint 18:17:28 CDT CPT-80971 Venipuncture Draw Fee 10:13:30 CDT CPT-36270 Venipuncture Draw Fee 08:31:43 STRIP PICKER CPT-JTINJ Joint Injection 18:34:50 CDT CPT-51452 Knee 3V 12:25:09 CDT CPT-90499 Venipuncture Draw Fee 12:15:57 CDT CPT-060 Medical Surveillance Exam 21:31:43 CDT 2011 CPT-43563 Venipuncture Draw Fee 08:32:05 STRIP PICKER CPT-OV Office Visit 18:19:06 CDT
--- OUTSIDE RECORDS SUMMARY | 2020-01-18 12:38 | XMS REPORT | Clinical Summary ---
Author Author Admin, Mitch Leon Organization [facility] Address Unknown Phone Unavailable Allergies, Adverse Reactions, [...] Coronary atherosclerosis of unspecified type of vessel, [place] or graft EDEMA 782.3 Active Mitch Urbina [...] 1 tablet by mouth daily AMLODIPINE BESYLATE 66972784637 Active Mitch Urbina DO Active MECLIZINE HCL 25 MG TAB 1 po tid 3 days, then 1/2 tab tid 3 days MECLIZINE HCL 99676689882 No Longer Active Corey SEGURA Active ALLOPURINOL 300 MG TABS Take 1 tablet by mouth daily 2 ALLOPURINOL 47016052421 No Longer Active Corey SEGURA Activ e CLONIDINE HCL 0.1 MG TABS 1 po bid 7 days, then 1/2 tab po b id 7 days CLONIDINE HCL 05595875087 No Longer Active Corey SEGURA Active COUMADIN 5 MG TABS 1 tab PO daily WARFARIN SODIUM 26931507196 Active Mitch Urbina DO Active COUMADIN 4 MG TABS 1 tablet daily WARFARIN SODI UM 84374929637 No Longer Active Corey SEGURA Active POLYTRIM 29458-3.1 UNIT/ML-% SOLN 1 drop in affected e ye every 3 hours while awake x 7 days POLYMYXIN B-TRIMETHOPRIM 17290872955 N o Longer Active Corey SEGURA Active LOSARTAN POTASSIUM-HCTZ 100-12.5 MG TABS 1 by mouth da rocky for high blood pressure LOSARTAN POTASSIUM-HCTZ 26679697093 Active Stephy Urbina DO Active LISINOPRIL-HYDROCHLOROTHIAZIDE 20-12.5 MG TABS 1 tab by mouth da rocky LISINOPRIL-HYDROCHLOROTHIAZIDE 13272586509 No Longer Active Mitch luis DO Active LISINOPRIL 20 MG TABS 1 tab po at HS LISINOPRIL 72271148534 No Longer Active Mitch Urbina DO Active COUMADIN 5 MG TABS 1 by mouth every other day WARFARIN SODIUM 99413253150 No Longer Active Mitch Urbina DO Active COUMADIN 6 MG TABS 1 by mouth every other day WARFARIN SODIUM 47502827231 No Longer Active Mitch Urbina DO Active COLCRYS 0.6 MG TABS 1 tab qid prn gout COLCHICINE 36250601939 Active Mitch Urbina DO Active SIMVASTATIN 40 MG TABS 1 tab daily at bedtime S IMVASTATIN 82724237152 Active Mitch Urbina DO Active SIMVASTATIN 20 MG TABS 1 tab daily at bedtime S IMVASTATIN 05083373359 No Longer Active Mitch Urbina DO Active LOVENOX 100 MG/ML SC SOLN One injection twice a day 09/15/15 ENOXAPARIN SODIUM 60292678628 No Longer Active Carmine Navarrete ctive JANUVIA 50 MG TABS Take one by mouth daily DIEGO GLIPTIN PHOSPHATE 22525959278 Active Mitch Urbina DO Active JANUVIA 100 MG TABS 1/2 by mouth every day DIEGO GLIPTIN PHOSPHATE 56487282220 No Longer Active Bijal Philipp RN Active METFORMIN HCL 500 MG TABS 2 by mouth twice daily METFORMIN HCL 75791771485 Active Mitch Urbina DO Active GLIMEPIRIDE 4 MG TABS 1 tab po bid GLIMEPIRIDE 094276 98298 Active Mitch Urbina DO Active COLCRYS 0.6 MG TABS 1 po q 6 hours prn gout pain 03/02 COLCHICINE 12704866429 No Longer Active Camila Reese Active LISINOPRIL 5 MG TABS 1 by mouth every day LISIN OPRIL 62152074095 No Longer Active Nguyen Perez Active KLOR-CON 20 MEQ PACK Take one by mouth daily 8 POTASSIUM CHLORIDE 64772246139 No Longer Active Nguyen Perez Active FUROSEMIDE 40 MG TABS 1 by mouth daily FUROSEMI DE 52005935736 No Longer Active Nguyen Perez Active PROVIGIL 200 MG TABS 1/2 tab po q day MODAFINIL 62748 602216 Active Mitch Urbina DO Active PROVIGIL 100 MG TABS Take one by mouth daily MO DAFINIL 71937260058 No Longer Active Mitch Urbina DO Active BACTRIM DS 800-160 MG TAB 1 tab by mouth twice daily 2 TRIMETHOPRIM-SULFAMETHOXAZOLE 16023904405 No Longer Active Renan Hays MD Active FAMOTIDINE 20 MG TABS by mouth twice a day FAMOTI DINE 63618930602 Active Mitch Urbina DO Active ADULT ASPIRIN LOW STRENGTH 81 MG TBDP 1 by mouth every daily ASPIRIN 98561822880 Active Mitch Urbina DO Active METOPROLOL TARTRATE 50 MG TABS 1 by mouth twice daily METOPROLOL TARTRATE 16352291555 Active Mitch W [place] DO Active BACTRIM DS 800-160 MG TAB 1 tab by mouth twice daily 2 BACTRIM DS 800-160 MG TAB TRIMETHOPRIM-SULFAMETHOXAZOLE Inac tive PROVIGIL 100 MG TABS Take one by mouth daily 4 PROVIGIL 100 MG TABS 568511 MODAFINIL Inactive FUROSEMIDE 40 MG TABS 1 by mouth daily FU ROSEMIDE 40 MG TABS 328560 FUROSEMIDE Inactive KLOR-CON 20 MEQ PACK Take one by mouth daily 8 KLOR-CON 20 MEQ PACK 940751 POTASSIUM CHLORIDE Inactive LISINOPRIL 5 MG TABS 1 by mouth every day LISINOPRIL 5 MG TABS 818771 LISINOPRIL Inactive COLCRYS 0.6 MG TABS 1 po q 6 hours prn gout pain 03/02 COLCRYS 0.6 MG TABS COLCHICINE Inactive JANUVIA 100 MG TABS 1/2 by mouth every day JANUVI A 100 MG TABS SITAGLIPTIN PHOSPHATE Inactive SIMVASTATIN 20 MG TABS 1 tab daily at bedtime SIMVASTATIN 20 MG TABS 848929 SIMVASTATIN Inactive COUMADIN 6 MG TABS 1 by mouth every other day COUMADIN 6 MG TABS 579051 WARFARIN SODIUM Inactive COUMADIN 5 MG TABS 1 by mouth every other day COUMADIN 5 MG TABS 315378 WARFARIN SODIUM Inactive LISINOPRIL 20 MG TABS 1 tab po at HS KOKI NOPRIL 20 MG TABS 736853 LISINOPRIL Inactive LISINOPRIL-HYDROCHLOROTHIAZIDE 20-12.5 MG TABS 1 tab by mouth da rocky LISINOPRIL-HYDROCHLOROTHIAZIDE 20-12.5 MG TABS 183756 LISINOPRIL-HYDROCHLOROTHIAZIDE Inactive POLYTRIM 15756-7.1 UNIT/ML-% SOLN 1 drop in affected e ye every 3 hours while awake x 7 days POLYTRIM 48703-2.1 UNIT/ML-% SOLN 78122 7 POLYMYXIN B-TRIMETHOPRIM Inactive COUMADIN 4 MG TABS 1 tablet daily COUMADIN 4 MG TABS 881811 WARFARIN SODIUM Inactive CLONIDINE HCL 0.1 MG TABS 1 po bid 7 days, then 1/2 tab po b id 7 days CLONIDINE HCL 0.1 MG TABS 666859 CLONIDINE HCL I nactive ALLOPURINOL 300 MG TABS Take 1 tablet by mouth daily 2 ALLOPURINOL 300 MG TABS 095792 ALLOPURINOL Inactive MECLIZINE HCL 25 MG TAB 1 po tid 3 days, then 1/2 tab tid 3 days MECLIZINE HCL 25 MG TAB 406567 MECLIZINE HCL Inactive LOVENOX 100 MG/ML SC SOLN One injection twice a day 20 09/15/15 LOVENOX 100 MG/ML SC SOLN 961528 ENOXAPARIN SODIUM Inactive Vital Signs Date Name [...] 10.3 mg/dL 2.6-7.2 sodium, serum 136 mmol/L 015-651 2921/07/25 potassium, serum 4.6 mmol/L 3.5-5.2 chloride, serum [...] 11 .6-14.8 platelet count 277 10^3/MM^3 10*3/mm3 197-303 8076/07/25 hemoglobin, blood 12.8 g/dL 13.5-17.5 erythrocyte (RBC) count 5.02 10^6/MM^3 10*6/mm3 4.69-6.1 3 leukocyte count, blood 6.6 10^3/MM^3 10*3/mm3 4.6-10.2 Lab Report: CBC, Comp. Metabolic Panel, HGBA1C, MICROALBUMIN, Uric Acid - Lab microalbumin, urine 30 0-19 Lab Report: Comp. Metabolic Panel, HGBA1 C, Lipid Panel - Chemistry sodium, serum 137 mmol/L 442-187 9198/11/14 potassium, serum 4.4 mmol/L 3.5-5.2 chloride, serum [...] 8.0 % 4.3-6.0 cholesterol, serum 130 mg/dL 729-185 1729/11/14 triglyceride, serum, fasting 288 mg/dL 30-200 HDL cholesterol, serum 33 mg/dL 32-96 LDL cholesterol, serum 39 mg/dL 0-130 Lab Report: Comp. Metabolic Panel, HGBA1 C, Lipid Panel, Prothrombin Time - Chemistry sodium, serum 136 mmol/L 197-844 4918/12/02 potassium, serum 4.4 mmol/L 3.5-5.2 chloride, serum [...] 7.6 % 4.3-6.0 cholesterol, serum 117 mg/dL 174-348 2321/12/02 triglyceride, serum, fasting 226 mg/dL 30-200 HDL cholesterol, serum 30 mg/dL 32-96 LDL cholesterol, serum 42 mg/dL 0-130 Lab Report: Comp. Metabolic Panel, HGBA1 C, Lipid Panel, Prothrombin Time - Coagulation prothrombin time (patient) 16.3 SECS s 11.1-13.4 international normalized ratio (INR) 1.7 1.0-3.5 Lab Report: Prothrombin Time - Coagulati on prothrombin time (patient) 16.0 SECS s 11.1-13.4 [...] 11.1-13.4 Encounters Code Encounter Date Provider Facility CPT-02530 Level 3 Est. Patient 13:53:19 V[employer]INARY [employer]IST Mitch luis [facility] CPT-01394 Level 3 Est. Patient 19:19:37 V[employer]IN[employer]IST Mitch luis [facility] CPT-45064 Level 3 Est. Patient 13:25:53 V[employer]ERINARY MIL[employer]IST Tavo toure MD [facility] CPT-07346 Level 3 Est. Patient 18:17:28 CDT Mitch luis [facility] CPT-36527 Level 3 Est. Patient 15:22:57 CDT Mitch luis [facility] CPT-50603 Level 3 Est. Patient 18:21:50 CDT Mitch luis [facility] CPT-17293 Level 3 Est. Patient 18:20:38 CDT Mitch luis [facility] CPT-18044 Level 3 Est. Patient 15:37:55 CDT Mitch luis [facility] CPT-80605 Level 2 Est. Patient 15:54:44 CDT Carmine benton MD [facility]-46802 Level 3 Est. 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 Patient 22:15:50 CDT Mitch luis [facility] CPT-66646 Level 3 Est. Patient 10:48:15 CDT Mitch luis [facility] CPT-42581 Level 3 Est. Patient 23:20:57 CDT Tavo toure MD [facility] CPT-36885 Level 3 Est. Patient 16:26:13 CDT Mitch luis [facility] Procedures Code Procedure Name Date Entry Date Standard Desc ription CPT-55265 Venipuncture Draw Fee 10:13:28 V[employer] CPT-13623 Venipuncture Draw Fee 08:31:11 CDT CPT-97033 Aspir/Inject Med Joint 18:17:28 CDT CPT-22832 Venipuncture Draw Fee 10:13:30 CDT CPT-78313 Venipuncture Draw Fee 08:31:43 V[employer]IST CPT-JTINJ Joint Injection 18:34:50 CDT CPT-06145 Knee 3V 12:25:09 CDT CPT-63006 Venipuncture Draw Fee 12:15:57 CDT CPT-060 Medical Surveillance Exam 21:31:43 CDT 2011 CPT-52624 Venipuncture Draw Fee 08:32:05 V[employer]INARY MIL[employer]IST CPT-OV Office Visit 18:19:06 CDT
--- OUTSIDE RECORDS SUMMARY | 2020-01-18 12:39 | XMS REPORT | Clinical Summary ---
[...] 1/2 tab tid 3 days MECLIZINE HCL 82273411823 No Longer Active Corey SEGURA Active ALLOPURINOL 300 MG TABS Take 1 tablet by mouth daily 2 ALLOPURINOL 98614996186 No Longer Active Corey SEGURA Activ e CLONIDINE HCL 0.1 MG TABS 1 po bid 7 days, then 1/2 tab po b id 7 days CLONIDINE HCL 09872269774 No Longer Active Corey SEGURA Active COUMADIN 5 MG TABS 1 tab PO daily WARFARIN SODIUM 78355395187 Active Mitch Urbina DO Active COUMADIN 4 MG TABS 1 tablet daily WARFARIN SODI UM 12341157682 No Longer Active Corey SEGURA Active POLYTRIM 89488-0.1 UNIT/ML-% SOLN 1 drop in affected e ye every 3 hours while awake x 7 days POLYMYXIN B-TRIMETHOPRIM 14967742536 N o Longer Active Corey SEGURA Active LOSARTAN POTASSIUM-HCTZ 100-12.5 MG TABS 1 by mouth da [place] for high blood pressure LOSARTAN POTASSIUM-HCTZ 56816007051 Active Stephy Urbina DO Active LISINOPRIL-HYDROCHLOROTHIAZIDE 20-12.5 MG TABS 1 tab by mouth da rocky LISINOPRIL-HYDROCHLOROTHIAZIDE 86129297803 No Longer Active Mitch luis DO Active LISINOPRIL 20 MG TABS 1 tab po at HS LISINOPRIL 32701532724 No Longer Active Mitch Urbina DO Active COUMADIN 5 MG TABS 1 by mouth every other day WARFARIN SODIUM 18629786795 No Longer Active Mitch Urbina DO Active COUMADIN 6 MG TABS 1 by mouth every other day WARFARIN SODIUM 61295366523 No Longer Active Mitch Urbina DO Active COLCRYS 0.6 MG TABS 1 tab qid prn gout COLCHICINE 52311130977 Active Mitch Urbina DO Active SIMVASTATIN 40 MG TABS 1 tab daily at bedtime S IMVASTATIN 65012255855 Active Mitch Urbina DO Active SIMVASTATIN 20 MG TABS 1 tab daily at bedtime S IMVASTATIN 36064436087 No Longer Active Mitch Urbina DO Active LOVENOX 100 MG/ML SC SOLN One injection twice a day 09/15/15 ENOXAPARIN SODIUM 67447028374 No Longer Active Carmine Navarrete ctive JANUVIA 50 MG TABS Take one by mouth daily DIEGO GLIPTIN PHOSPHATE 61072095320 Active Mitch Urbina DO Active JANUVIA 100 MG TABS 1/2 by mouth every day DIEGO GLIPTIN PHOSPHATE 71764326954 No Longer Active Bijal Philipp RN Active METFORMIN HCL 500 MG TABS 2 by mouth twice daily METFORMIN HCL 38752672863 Active Mitch Urbina DO Active GLIMEPIRIDE 4 MG TABS 1 tab po bid GLIMEPIRIDE 664381 54163 Active Mitch Urbina DO Active COLCRYS 0.6 MG TABS 1 po q 6 hours prn gout pain 03/02 COLCHICINE 43778426123 No Longer Active Camila Ravinia Active LISINOPRIL 5 MG TABS 1 by mouth every day LISIN OPRIL 75240394573 No Longer Active Nguyenmolly Perez Active KLOR-CON 20 MEQ PACK Take one by mouth daily 8 POTASSIUM CHLORIDE 95445809018 No Longer Active Nguyenmolly Perez Active FUROSEMIDE 40 MG TABS 1 by mouth daily FUROSEMI DE 62623239255 No Longer Active Nguyen Perez Active PROVIGIL 200 MG TABS 1/2 tab po q day MODAFINIL 44254 258755 Active Mitch Urbina DO Active PROVIGIL 100 MG TABS Take one by mouth daily MO DAFINIL 35868670642 No Longer Active Mitch Urbina DO Active BACTRIM DS 800-160 MG TAB 1 tab by mouth twice daily 2 TRIMETHOPRIM-SULFAMETHOXAZOLE 68135113696 No Longer Active Renan Hays MD Active FAMOTIDINE 20 MG TABS by mouth twice a day FAMOTI DINE 58812012964 Active Mitch Urbina DO Active ADULT ASPIRIN LOW STRENGTH 81 MG TBDP 1 by mouth every daily ASPIRIN 96131609241 Active Mitch Urbina DO Active METOPROLOL TARTRATE 50 MG TABS 1 by mouth twice daily METOPROLOL TARTRATE 28349603628 Active Mitch Urbina DO Active BACTRIM DS 800-160 MG TAB 1 tab by mouth twice daily 2 BACTRIM DS 800-160 MG TAB TRIMETHOPRIM-SULFAMETHOXAZOLE Inac tive PROVIGIL 100 MG TABS Take one by mouth daily 4 PROVIGIL 100 MG TABS 762469 MODAFINIL Inactive FUROSEMIDE 40 MG TABS 1 by mouth daily FU ROSEMIDE 40 MG TABS 265583 FUROSEMIDE Inactive KLOR-CON 20 MEQ PACK Take one by mouth daily 8 KLOR-CON 20 MEQ PACK 671232 POTASSIUM CHLORIDE Inactive LISINOPRIL 5 MG TABS 1 by mouth every day LISINOPRIL 5 MG TABS 214188 LISINOPRIL Inactive COLCRYS 0.6 MG TABS 1 po q 6 hours prn gout pain 03/02 COLCRYS 0.6 MG TABS COLCHICINE Inactive JANUVIA 100 MG TABS 1/2 by mouth every day JANUVI A 100 MG TABS SITAGLIPTIN PHOSPHATE Inactive SIMVASTATIN 20 MG TABS 1 tab daily at bedtime SIMVASTATIN 20 MG TABS 288879 SIMVASTATIN Inactive COUMADIN 6 MG TABS 1 by mouth every other day COUMADIN 6 MG TABS 300633 WARFARIN SODIUM Inactive COUMADIN 5 MG TABS 1 by mouth every other day COUMADIN 5 MG TABS 683424 WARFARIN SODIUM Inactive LISINOPRIL 20 MG TABS 1 tab po at HS KOKI NOPRIL 20 MG TABS 728856 LISINOPRIL Inactive LISINOPRIL-HYDROCHLOROTHIAZIDE 20-12.5 MG TABS 1 tab by mouth da rocky LISINOPRIL-HYDROCHLOROTHIAZIDE 20-12.5 MG TABS 746874 LISINOPRIL-HYDROCHLOROTHIAZIDE Inactive POLYTRIM 14779-5.1 UNIT/ML-% SOLN 1 drop in affected e ye every 3 hours while awake x 7 days POLYTRIM 55196-6.1 UNIT/ML-% SOLN 89431 7 POLYMYXIN B-TRIMETHOPRIM Inactive COUMADIN 4 MG TABS 1 tablet daily COUMADIN 4 MG TABS 579389 WARFARIN SODIUM Inactive CLONIDINE HCL 0.1 MG TABS 1 po bid 7 days, then 1/2 tab po b id 7 days CLONIDINE HCL 0.1 MG TABS 920319 CLONIDINE HCL I nactive ALLOPURINOL 300 MG TABS Take 1 tablet by mouth daily 2 ALLOPURINOL 300 MG TABS 071128 ALLOPURINOL Inactive MECLIZINE HCL 25 MG TAB 1 po tid 3 days, then 1/2 tab tid 3 days MECLIZINE HCL 25 MG TAB 506756 MECLIZINE HCL Inactive LOVENOX 100 MG/ML SC SOLN One injection twice a day 09/15/15 LOVENOX 100 MG/ML SC SOLN 138736 ENOXAPARIN SODIUM Inactive Vital Signs Date Name [...] ratio (INR) coagulation managed by Mitch Urbina coagulation managed by Mitch Urbina DO coagulation managed by Mitch Urbina DO international normalized ratio (INR) coagulation managed by Mitch Urbina DO international normalized ratio (INR) international normalized ratio (INR) international normalized ratio (INR) Lab Report: CBC, Comp. Metabolic Panel, HGBA1C, MICROALBUMIN, Uric Acid - Chemistry albumin/creatinine ratio, urine < 30 mg/g mg/g{creat} 0-2 9 uric acid, serum 10.3 mg/dL 2.6-7.2 sodium, serum 136 mmol/L 710-025 6878/07/25 potassium, serum 4.6 mmol/L 3.5-5.2 chloride, serum [...] 11 .6-14.8 platelet count 277 10^3/MM^3 10*3/mm3 805-733 6245/07/25 hemoglobin, blood 12.8 g/dL 13.5-17.5 erythrocyte (RBC) count 5.02 10^6/MM^3 10*6/mm3 4.69-6.1 3 leukocyte count, blood 6.6 10^3/MM^3 10*3/mm3 4.6-10.2 Lab Report: CBC, Comp. Metabolic Panel, HGBA1C, MICROALBUMIN, Uric Acid - Lab microalbumin, urine 30 0-19 Lab Report: CBC, HGBA1C, Lipid Panel - C hemistry hemoglobin A1C, blood, as % of total hemoglobin 6.9 % 4.3-6.0 cholesterol, serum 108 mg/dL 935-800 1927/11/01 triglyceride, serum, fasting 112 mg/dL 30-200 HDL [...] - Coagulati on international normalized ratio (INR) 1.6 1.0-3.5 prothrombin time (patient) 17.8 SECS s 11.4-12.8 international normalized ratio (INR) 2.1 1.0-3.5 prothrombin time (patient) 15.6 SECS s 11.4-12.8 prothrombin time (patient) 16.8 SECS s 11.1-13.4 international normalized ratio (INR) 1.9 1.0-3.5 prothrombin time (patient) 18.4 SECS s 11.1-13.4 international normalized ratio (INR) 2.2 1.0-3.5 prothrombin time (patient) 18.4 SECS s 11.1-13.4 international normalized ratio (INR) 2.2 1.0-3.5 international normalized ratio (INR) 2.6 1.0-3.5 prothrombin time (patient) 19.9 SECS s 11.4-12.8 Encounters Code Encounter Date Provider Facility CPT-79790 Level 3 Est. 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 Patient 19:19:37 BURGL[employer] ALARM MECHANIC Mitch luis DO [facility] CPT-89396 Level 3 Est. Patient 13:25:53 BURGL[employer] ALARM MECHANIC Tavo toure MD [facility] CPT-67663 Level 3 Est. Patient 18:17:28 CDT Mitch luis [facility] CPT-24595 Level 3 Est. Patient 15:22:57 CDT Mitch luis [facility] CPT-21288 Level 3 Est. Patient 18:21:50 CDT Mitch luis [facility] CPT-86317 Level 3 Est. Patient 18:20:38 CDT Mitch luis [facility] CPT-36766 Level 3 Est. Patient 15:37:55 CDT Mitch luis [facility] CPT-65981 Level 2 Est. Patient 15:54:44 CDT Carmine benton MD [facility] CPT-30966 Level 3 Est. Patient 21:46:01 BURGL[employer] ALARM MECHANIC Mitch luis [facility] CPT-59698 Level 3 Est. Patient 22:15:50 CDT Mitch luis [facility] CPT-77150 Level 3 Est. Patient 10:48:15 CDT Mitch luis [facility] CPT-73438 Level 3 Est. Patient 23:20:57 CDT Tavo toure MD [facility] CPT-02980 Level 3 Est. Patient 16:26:13 CDT Mitch luis [facility] Procedures Code Procedure Name Date Entry Date Standard Desc ription CPT-39910 Venipuncture Draw Fee 10:13:28 [employer] AL[employer] MECH[employer]IC CPT-69586 Venipuncture Draw Fee 08:31:11 CDT CPT-42133 Aspir/Inject Med Joint 18:17:28 CDT CPT-90033 Venipuncture Draw Fee 10:13:30 CDT CPT-25663 Venipuncture Draw Fee 08:31:43 BURGL[employer] ALARM MECH[employer]IC CPT-JTINJ Joint Injection 18:34:50 CDT CPT-98572 Knee 3V 12:25:09 CDT CPT-19940 Venipuncture Draw Fee 12:15:57 CDT CPT-060 Medical Surveillance Exam 21:31:43 CDT 2011 CPT-74504 Venipuncture Draw Fee 08:32:05 BUR[employer]AR ALARM MECH[employer]IC CPT-OV Office Visit 18:19:06 CDT
--- OUTSIDE RECORDS SUMMARY | 2020-01-18 12:39 | XMS REPORT | Clinical Summary ---
Author Author Admin, Mitch Leon Organization [facility] Address Unknown Phone Unavailable Allergies, Adverse [...] Coronary atherosclerosis of unspecified type of vessel, [place] or graft EDEMA 782.3 Active Mitch [...] 1/2 tab tid 3 days MECLIZINE HCL 81581258884 No Longer Active Corey SEGURA Active ALLOPURINOL 300 MG TABS Take 1 tablet by mouth daily 2 ALLOPURINOL 08246995194 No Longer Active Corey SEGURA Activ e CLONIDINE HCL 0.1 MG TABS 1 po bid 7 days, then 1/2 tab po b id 7 days CLONIDINE HCL 65627532679 No Longer Active Corey SEGURA Active COUMADIN 5 MG TABS 1 tab PO daily WARFARIN SODIUM 18507461586 Active Mitch Urbina DO Active COUMADIN 4 MG TABS 1 tablet daily WARFARIN SODI UM 46282275946 No Longer Active Corey SEGURA Active POLYTRIM 64640-9.1 UNIT/ML-% SOLN 1 drop in affected e ye every 3 hours while awake x 7 days POLYMYXIN B-TRIMETHOPRIM 34049526205 N o Longer Active Corey SEGURA Active LOSARTAN POTASSIUM-HCTZ 100-12.5 MG TABS 1 by mouth da rocky for high blood pressure LOSARTAN POTASSIUM-HCTZ 55748559452 Active Stephy Urbina DO Active LISINOPRIL-HYDROCHLOROTHIAZIDE 20-12.5 MG TABS 1 tab by mouth da rocky LISINOPRIL-HYDROCHLOROTHIAZIDE 20617598419 No Longer Active Mitch luis DO Active LISINOPRIL 20 MG TABS 1 tab po at HS LISINOPRIL 82186441091 No Longer Active Mitch Urbina DO Active COUMADIN 5 MG TABS 1 by mouth every other day WARFARIN SODIUM 41600446780 No Longer Active Mitch Urbina DO Active COUMADIN 6 MG TABS 1 by mouth every other day WARFARIN SODIUM 97490568294 No Longer Active Mitch Urbina DO Active COLCRYS 0.6 MG TABS 1 tab qid prn gout COLCHICINE 53545512939 Active Mitch Urbina DO Active SIMVASTATIN 40 MG TABS 1 tab daily at bedtime S IMVASTATIN 10814378165 Active Mitch Urbina DO Active SIMVASTATIN 20 MG TABS 1 tab daily at bedtime S IMVASTATIN 18961855745 No Longer Active Mitch Urbina DO Active LOVENOX 100 MG/ML SC SOLN One injection twice a day 09/15/15 ENOXAPARIN SODIUM 85427417882 No Longer Active Carmine Navarrete ctive JANUVIA 50 MG TABS Take one by mouth daily DIEGO GLIPTIN PHOSPHATE 25651372355 Active Mitch Urbina DO Active JANUVIA 100 MG TABS 1/2 by mouth every day DIEGO GLIPTIN PHOSPHATE 34641863471 No Longer Active Bijalseth Segal RN Active METFORMIN HCL 500 MG TABS 2 by mouth twice daily METFORMIN HCL 04886874384 Active Mitch Urbina DO Active GLIMEPIRIDE 4 MG TABS 1 tab po bid GLIMEPIRIDE 237917 12270 Active Mitch Urbina DO Active COLCRYS 0.6 MG TABS 1 po q 6 hours prn gout pain 03/02 COLCHICINE 32728197222 No Longer Active Camila Hugh Active LISINOPRIL 5 MG TABS 1 by mouth every day LISIN OPRIL 84324671827 No Longer Active Nguyenmolly Perez Active KLOR-CON 20 MEQ PACK Take one by mouth daily 8 POTASSIUM CHLORIDE 95117658698 No Longer Active Nguyenmolly Perez Active FUROSEMIDE 40 MG TABS 1 by mouth daily FUROSEMI DE 39495721981 No Longer Active Nguyen Perez Active PROVIGIL 200 MG TABS 1/2 tab po q day MODAFINIL 74088 307957 Active Mitch Urbina DO Active PROVIGIL 100 MG TABS Take one by mouth daily MO DAFINIL 46299250583 No Longer Active Mitch Urbina DO Active BACTRIM DS 800-160 MG TAB 1 tab by mouth twice daily 2 TRIMETHOPRIM-SULFAMETHOXAZOLE 41069632957 No Longer Active Renan Hays MD Active FAMOTIDINE 20 MG TABS by mouth twice a day FAMOTI DINE 42210336054 Active Mitch Urbina DO Active ADULT ASPIRIN LOW STRENGTH 81 MG TBDP 1 by mouth every daily ASPIRIN 74634830979 Active Mitch Urbina DO Active METOPROLOL TARTRATE 50 MG TABS 1 by mouth twice daily METOPROLOL TARTRATE 07259871463 Active Mitch Urbina DO Active BACTRIM DS 800-160 MG TAB 1 tab by mouth twice daily 2 BACTRIM DS 800-160 MG TAB TRIMETHOPRIM-SULFAMETHOXAZOLE Inac tive PROVIGIL 100 MG TABS Take one by mouth daily 4 PROVIGIL 100 MG TABS 353131 MODAFINIL Inactive FUROSEMIDE 40 MG TABS 1 by mouth daily FU ROSEMIDE 40 MG TABS 021661 FUROSEMIDE Inactive KLOR-CON 20 MEQ PACK Take one by mouth daily 8 KLOR-CON 20 MEQ PACK 136202 POTASSIUM CHLORIDE Inactive LISINOPRIL 5 MG TABS 1 by mouth every day LISINOPRIL 5 MG TABS 233688 LISINOPRIL Inactive COLCRYS 0.6 MG TABS 1 po q 6 hours prn gout pain 03/02 COLCRYS 0.6 MG TABS COLCHICINE Inactive JANUVIA 100 MG TABS 1/2 by mouth every day JANUVI A 100 MG TABS SITAGLIPTIN PHOSPHATE Inactive SIMVASTATIN 20 MG TABS 1 tab daily at bedtime SIMVASTATIN 20 MG TABS 247014 SIMVASTATIN Inactive COUMADIN 6 MG TABS 1 by mouth every other day COUMADIN 6 MG TABS 587350 WARFARIN SODIUM Inactive COUMADIN 5 MG TABS 1 by mouth every other day COUMADIN 5 MG TABS 377101 WARFARIN SODIUM Inactive LISINOPRIL 20 MG TABS 1 tab po at HS KOKI NOPRIL 20 MG TABS 183673 LISINOPRIL Inactive LISINOPRIL-HYDROCHLOROTHIAZIDE 20-12.5 MG TABS 1 tab by mouth da rocky LISINOPRIL-HYDROCHLOROTHIAZIDE 20-12.5 MG TABS 414145 LISINOPRIL-HYDROCHLOROTHIAZIDE Inactive POLYTRIM 58454-3.1 UNIT/ML-% SOLN 1 drop in affected e ye every 3 hours while awake x 7 days POLYTRIM 60771-8.1 UNIT/ML-% SOLN 06756 7 POLYMYXIN B-TRIMETHOPRIM Inactive COUMADIN 4 MG TABS 1 tablet daily COUMADIN 4 MG TABS 263404 WARFARIN SODIUM Inactive CLONIDINE HCL 0.1 MG TABS 1 po bid 7 days, then 1/2 tab po b id 7 days CLONIDINE HCL 0.1 MG TABS 951412 CLONIDINE HCL I nactive ALLOPURINOL 300 MG TABS Take 1 tablet by mouth daily 2 ALLOPURINOL 300 MG TABS 382700 ALLOPURINOL Inactive MECLIZINE HCL 25 MG TAB 1 po tid 3 days, then 1/2 tab tid 3 days MECLIZINE HCL 25 MG TAB 624338 MECLIZINE HCL Inactive LOVENOX 100 MG/ML SC SOLN One injection twice a day 09/15/15 LOVENOX 100 MG/ML SC SOLN 725038 ENOXAPARIN SODIUM Inactive Vital Signs Date Name [...] Acid - Chemistry sodium, serum 136 mmol/L 915-882 0074/07/25 potassium, serum 4.6 mmol/L 3.5-5.2 chloride, serum [...] 6.9 % 4.3-6.0 cholesterol, serum 108 mg/dL 951-487 3933/11/01 triglyceride, serum, fasting 112 mg/dL 30-200 HDL [...] 1.0-3.5 Encounters Code Encounter Date Provider Facility CPT-02813 Level 3 Est. 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 Patient 19:19:37 WALL STEAMER Mitch luis [facility] CPT-54863 Level 3 Est. Patient 13:25:53 WALL STEAMER Tavo toure MD [facility] CPT-40095 Level 3 Est. Patient 18:17:28 CDT Mitch luis [facility] CPT-88360 Level 3 Est. Patient 15:22:57 CDT Mitch luis [facility] CPT-58296 Level 3 Est. Patient 18:21:50 CDT Mitch luis [facility] CPT-94014 Level 3 Est. Patient 18:20:38 CDT Mitch luis [facility] CPT-51349 Level 3 Est. Patient 15:37:55 CDT Mitch luis [facility] CPT-36311 Level 2 Est. Patient 15:54:44 CDT Carmine benton MD [facility] CPT-45692 Level 3 Est. Patient 21:46:01 WALL STEAMER Mitch luis [facility] CPT-43818 Level 3 Est. Patient 22:15:50 CDT Mitch luis [facility] CPT-25562 Level 3 Est. Patient 10:48:15 CDT Mitch luis [facility] CPT-61928 Level 3 Est. Patient 23:20:57 CDT Tavo toure MD [facility] CPT-90456 Level 3 Est. Patient 16:26:13 CDT Mitch luis [facility] Procedures Code Procedure Name Date Entry Date Standard Desc ription CPT-99533 Venipuncture Draw Fee 10:13:28 WALL STEAMER CPT-95245 Venipuncture Draw Fee 08:31:11 CDT CPT-34285 Aspir/Inject Med Joint 18:17:28 CDT CPT-28512 Venipuncture Draw Fee 10:13:30 CDT CPT-46836 Venipuncture Draw Fee 08:31:43 WALL STEAMER CPT-JTINJ Joint Injection 18:34:50 CDT CPT-41532 Knee 3V 12:25:09 CDT CPT-71427 Venipuncture Draw Fee 12:15:57 CDT CPT-060 Medical Surveillance Exam 21:31:43 CDT 2011 CPT-26295 Venipuncture Draw Fee 08:32:05 WALL STEAMER CPT-OV Office Visit 18:19:06 CDT
--- OUTSIDE RECORDS SUMMARY | 2020-01-18 12:39 | XMS REPORT | Clinical Summary ---
Author Author Admin, Mitch Leon Organization [facility] Address Unknown Phone Unavailable Allergies, Adverse Reactions, [...] of vessel, resighini or graft EDEMA 782.3 Active Mitch Urbina [...] 1/2 tab tid 3 days MECLIZINE HCL 21612538243 No Longer Active Corey SEGURA Active ALLOPURINOL 300 MG TABS Take 1 tablet by mouth daily 2 ALLOPURINOL 85579283933 No Longer Active Corey SEGURA Activ e CLONIDINE HCL 0.1 MG TABS 1 po bid 7 days, then 1/2 tab po b id 7 days CLONIDINE HCL 26358061466 No Longer Active Corey SEGURA Active COUMADIN 5 MG TABS 1 tab PO daily WARFARIN SODIUM 15617893045 Active Mitch Urbina DO Active COUMADIN 4 MG TABS 1 tablet daily WARFARIN SODI UM 75688305174 No Longer Active Corey SEGURA Active POLYTRIM 72957-7.1 UNIT/ML-% SOLN 1 drop in affected e ye every 3 hours while awake x 7 days POLYMYXIN B-TRIMETHOPRIM 43530177460 N o Longer Active Corey SEGURA Active LOSARTAN POTASSIUM-HCTZ 100-12.5 MG TABS 1 by mouth da [place] for high blood pressure LOSARTAN POTASSIUM-HCTZ 88645369834 Active Stephy Urbina DO Active LISINOPRIL-HYDROCHLOROTHIAZIDE 20-12.5 MG TABS 1 tab by mouth da rocky LISINOPRIL-HYDROCHLOROTHIAZIDE 88066952939 No Longer Active Mitch luis DO Active LISINOPRIL 20 MG TABS 1 tab po at HS LISINOPRIL 54866378196 No Longer Active Mitch Urbina DO Active COUMADIN 5 MG TABS 1 by mouth every other day WARFARIN SODIUM 28620703335 No Longer Active Mitch Urbina DO Active COUMADIN 6 MG TABS 1 by mouth every other day WARFARIN SODIUM 06895745454 No Longer Active Mitch Urbina DO Active COLCRYS 0.6 MG TABS 1 tab qid prn gout COLCHICINE 61602827796 Active Mitch Urbina DO Active SIMVASTATIN 40 MG TABS 1 tab daily at bedtime S IMVASTATIN 51516236733 Active Mitch Urbina DO Active SIMVASTATIN 20 MG TABS 1 tab daily at bedtime S IMVASTATIN 13960058541 No Longer Active Mitch Urbina DO Active LOVENOX 100 MG/ML SC SOLN One injection twice a day 09/15/15 ENOXAPARIN SODIUM 85469400847 No Longer Active Carmine Navarrete ctive JANUVIA 50 MG TABS Take one by mouth daily DIEGO GLIPTIN PHOSPHATE 46168913663 Active Mitch Urbina DO Active JANUVIA 100 MG TABS 1/2 by mouth every day DIEGO GLIPTIN PHOSPHATE 77252432393 No Longer Active Bijal Philipp RN Active METFORMIN HCL 500 MG TABS 2 by mouth twice daily METFORMIN HCL 13410138264 Active Mitch Urbina DO Active GLIMEPIRIDE 4 MG TABS 1 tab po bid GLIMEPIRIDE 597401 05251 Active Mitch Urbina DO Active COLCRYS 0.6 MG TABS 1 po q 6 hours prn gout pain 03/02 COLCHICINE 03161190857 No Longer Active Camila Hugh Active LISINOPRIL 5 MG TABS 1 by mouth every day LISIN OPRIL 49409970770 No Longer Active Nguyenmolly Perez Active KLOR-CON 20 MEQ PACK Take one by mouth daily 8 POTASSIUM CHLORIDE 62580252024 No Longer Active Nguyenmolly Perez Active FUROSEMIDE 40 MG TABS 1 by mouth daily FUROSEMI DE 42719244326 No Longer Active Nguyen Perez Active PROVIGIL 200 MG TABS 1/2 tab po q day MODAFINIL 33857 643926 Active Mitch Urbina DO Active PROVIGIL 100 MG TABS Take one by mouth daily MO DAFINIL 05798541127 No Longer Active Mitch Urbina DO Active BACTRIM DS 800-160 MG TAB 1 tab by mouth twice daily 2 TRIMETHOPRIM-SULFAMETHOXAZOLE 06693396404 No Longer Active Renan Hays MD Active FAMOTIDINE 20 MG TABS by mouth twice a day FAMOTI DINE 04362929104 Active Mitch Urbina DO Active ADULT ASPIRIN LOW STRENGTH 81 MG TBDP 1 by mouth every daily ASPIRIN 55766918817 Active Mitch Urbina DO Active METOPROLOL TARTRATE 50 MG TABS 1 by mouth twice daily METOPROLOL TARTRATE 41421214205 Active Mtich Urbina DO Active BACTRIM DS 800-160 MG TAB 1 tab by mouth twice daily 2 BACTRIM DS 800-160 MG TAB TRIMETHOPRIM-SULFAMETHOXAZOLE Inac tive PROVIGIL 100 MG TABS Take one by mouth daily 4 PROVIGIL 100 MG TABS 715510 MODAFINIL Inactive FUROSEMIDE 40 MG TABS 1 by mouth daily FU ROSEMIDE 40 MG TABS 110069 FUROSEMIDE Inactive KLOR-CON 20 MEQ PACK Take one by mouth daily 8 KLOR-CON 20 MEQ PACK 049753 POTASSIUM CHLORIDE Inactive LISINOPRIL 5 MG TABS 1 by mouth every day LISINOPRIL 5 MG TABS 787461 LISINOPRIL Inactive COLCRYS 0.6 MG TABS 1 po q 6 hours prn gout pain 03/02 COLCRYS 0.6 MG TABS COLCHICINE Inactive JANUVIA 100 MG TABS 1/2 by mouth every day JANUVI A 100 MG TABS SITAGLIPTIN PHOSPHATE Inactive SIMVASTATIN 20 MG TABS 1 tab daily at bedtime SIMVASTATIN 20 MG TABS 372037 SIMVASTATIN Inactive COUMADIN 6 MG TABS 1 by mouth every other day COUMADIN 6 MG TABS 535422 WARFARIN SODIUM Inactive COUMADIN 5 MG TABS 1 by mouth every other day COUMADIN 5 MG TABS 254886 WARFARIN SODIUM Inactive LISINOPRIL 20 MG TABS 1 tab po at HS KOKI NOPRIL 20 MG TABS 466908 LISINOPRIL Inactive LISINOPRIL-HYDROCHLOROTHIAZIDE 20-12.5 MG TABS 1 tab by mouth da rocky LISINOPRIL-HYDROCHLOROTHIAZIDE 20-12.5 MG TABS 609713 LISINOPRIL-HYDROCHLOROTHIAZIDE Inactive POLYTRIM 60719-3.1 UNIT/ML-% SOLN 1 drop in affected e ye every 3 hours while awake x 7 days POLYTRIM 70457-6.1 UNIT/ML-% SOLN 43048 7 POLYMYXIN B-TRIMETHOPRIM Inactive COUMADIN 4 MG TABS 1 tablet daily COUMADIN 4 MG TABS 267428 WARFARIN SODIUM Inactive CLONIDINE HCL 0.1 MG TABS 1 po bid 7 days, then 1/2 tab po b id 7 days CLONIDINE HCL 0.1 MG TABS 835009 CLONIDINE HCL I nactive ALLOPURINOL 300 MG TABS Take 1 tablet by mouth daily 2 ALLOPURINOL 300 MG TABS 775197 ALLOPURINOL Inactive MECLIZINE HCL 25 MG TAB 1 po tid 3 days, then 1/2 tab tid 3 days MECLIZINE HCL 25 MG TAB 153471 MECLIZINE HCL Inactive LOVENOX 100 MG/ML SC SOLN One injection twice a day 09/15/15 LOVENOX 100 MG/ML SC SOLN 153718 ENOXAPARIN SODIUM Inactive Vital Signs Date Name [...] weight E&M 245 [lb_av] Weight Measure d Diagnostic Results Date Name Value Unit Range Description Append: Anticoagulation Management - Coa gulation coagulation managed by Mitch Urbina international normalized [...] 10.3 mg/dL 2.6-7.2 sodium, serum 136 mmol/L 713-712 4717/07/25 potassium, serum 4.6 mmol/L 3.5-5.2 chloride, serum [...] 11 .6-14.8 platelet count 277 10^3/MM^3 10*3/mm3 596-287 5218/07/25 hematocrit, blood 40.1 % 41.0-53.0 hemoglobin, blood [...] 1.0-3.5 Encounters Code Encounter Date Provider Facility CPT-84248 Level 3 Est. Patient 13:53:19 [employer]LECT[employer] SUPERVISOR Mitch luis [facility] CPT-67678 Level 3 Est. Patient 19:19:37 [employer] SUPERVISOR Mitch luis [facility] CPT-56239 Level 3 Est. Patient 13:25:53 [employer] SUPERVISOR Tavo toure MD [facility] CPT-33422 Level 3 Est. Patient 18:17:28 CDT Mitch Arnol luis [facility] CPT-19964 Level 3 Est. Patient 15:22:57 CDT Mitch luis [facility] CPT-40719 Level 3 Est. Patient 18:21:50 CDT Mitch luis [facility] CPT-92276 Level 3 Est. Patient 18:20:38 CDT Mitch Arnol luis [facility] CPT-39151 Level 3 Est. Patient 15:37:55 CDT Mitch Ambrose Nona janelle [facility] CPT-43159 Level 2 Est. Patient 15:54:44 CDT Carmnie benton MD [facility]-56645 Level 3 Est. Patient 21:46:01 [employer] ELECT[employer] SUPERVISOR Mitch luis [facility] CPT-83219 Level 3 Est. Patient 22:15:50 CDT Mitch luis [facility] CPT-32698 Level 3 Est. Patient 10:48:15 CDT Mitch luis [facility] CPT-12997 Level 3 Est. Patient 23:20:57 CDT Tavo toure MD [facility] CPT-28834 Level 3 Est. Patient 16:26:13 CDT Mitch luis [facility] Procedures Code Procedure Name Date Entry Date Standard Desc ription CPT-93187 Venipuncture Draw Fee 10:13:28 [employer] SUPERVISOR CPT-49388 Venipuncture Draw Fee 08:31:11 CDT CPT-32719 Aspir/Inject Med Joint 18:17:28 CDT CPT-11304 Venipuncture Draw Fee 10:13:30 CDT CPT-47348 Venipuncture Draw Fee 08:31:43 [employer] SUPERVISOR CPT-JTINJ Joint Injection 18:34:50 CDT CPT-30101 Knee 3V 12:25:09 CDT CPT-77755 Venipuncture Draw Fee 12:15:57 CDT CPT-060 Medical Surveillance Exam 21:31:43 CDT 2011 CPT-53958 Venipuncture Draw Fee 08:32:05 [employer] SUPERVISOR CPT-OV Office Visit 18:19:06 CDT
--- OUTSIDE RECORDS SUMMARY | 2020-01-18 12:39 | XMS REPORT | Clinical Summary ---
Author Author Admin, Mitch Leon Organization [facility] Address Unknown Phone Allergies, Adverse Reactions, [...] Coronary atherosclerosis of unspecified type of vessel, [place] or graft EDEMA 782.3 Active Mitch Kilpatrick [...] 1/2 tab tid 3 days MECLIZINE HCL 85034586082 No Longer Active Corey SEGURA Active ALLOPURINOL 300 MG TABS Take 1 tablet by mouth daily 2 ALLOPURINOL 82213128064 No Longer Active Corey SEGURA Activ e CLONIDINE HCL 0.1 MG TABS 1 po bid 7 days, then 1/2 tab po b id 7 days CLONIDINE HCL 08262203212 No Longer Active Corey SEGURA Active COUMADIN 5 MG TABS 1 tab PO daily WARFARIN SODIUM 31046053227 Active Mitch Urbina DO Active COUMADIN 4 MG TABS 1 tablet daily WARFARIN SODI UM 98326927589 No Longer Active Corey SEGURA Active POLYTRIM 19591-5.1 UNIT/ML-% SOLN 1 drop in affected e ye every 3 hours while awake x 7 days POLYMYXIN B-TRIMETHOPRIM 11307482928 N o Longer Active Corey SEGURA Active LOSARTAN POTASSIUM-HCTZ 100-12.5 MG TABS 1 by mouth da [place] for high blood pressure LOSARTAN POTASSIUM-HCTZ 41257447821 Active Stephy Urbina DO Active LISINOPRIL-HYDROCHLOROTHIAZIDE 20-12.5 MG TABS 1 tab by mouth da rocky LISINOPRIL-HYDROCHLOROTHIAZIDE 01022023139 No Longer Active Mitch luis DO Active LISINOPRIL 20 MG TABS 1 tab po at HS LISINOPRIL 76532804039 No Longer Active Mitch Urbina DO Active COUMADIN 5 MG TABS 1 by mouth every other day WARFARIN SODIUM 21805052123 No Longer Active Mitch Urbina DO Active COUMADIN 6 MG TABS 1 by mouth every other day WARFARIN SODIUM 35110151665 No Longer Active Mitch Urbina DO Active COLCRYS 0.6 MG TABS 1 tab qid prn gout COLCHICINE 33198033132 Active Mitch Urbina DO Active SIMVASTATIN 40 MG TABS 1 tab daily at bedtime S IMVASTATIN 33927611589 Active Mitch Urbina DO Active SIMVASTATIN 20 MG TABS 1 tab daily at bedtime S IMVASTATIN 14138261625 No Longer Active Mitch Urbina DO Active LOVENOX 100 MG/ML SC SOLN One injection twice a day 09/15/15 ENOXAPARIN SODIUM 56298485547 No Longer Active Carmine Navarrete ctive JANUVIA 50 MG TABS Take one by mouth daily DIEGO GLIPTIN PHOSPHATE 76098045125 Active Mitch Urbina DO Active JANUVIA 100 MG TABS 1/2 by mouth every day DIEGO GLIPTIN PHOSPHATE 53186825469 No Longer Active Bijal Philipp RN Active METFORMIN HCL 500 MG TABS 2 by mouth twice daily METFORMIN HCL 65332600632 Active Curly Coker MD Active GLIMEPIRIDE 4 MG TABS 1 tab po bid GLIMEPIRIDE 685551 64940 Active Mitch Urbina DO Active COLCRYS 0.6 MG TABS 1 po q 6 hours prn gout pain 03/02 COLCHICINE 71128507868 No Longer Active Camila Hugh Active LISINOPRIL 5 MG TABS 1 by mouth every day LISIN OPRIL 72806423393 No Longer Active Nguyenmolly Perez Active KLOR-CON 20 MEQ PACK Take one by mouth daily 8 POTASSIUM CHLORIDE 84566762788 No Longer Active Nguyen Perez Active FUROSEMIDE 40 MG TABS 1 by mouth daily FUROSEMI DE 90108542301 No Longer Active Nguyen Perez Active PROVIGIL 200 MG TABS 1/2 tab po q day MODAFINIL 41198 635492 Active Mitch Urbina DO Active PROVIGIL 100 MG TABS Take one by mouth daily MO DAFINIL 56595163936 No Longer Active Mitch Urbina DO Active BACTRIM DS 800-160 MG TAB 1 tab by mouth twice daily TRIMETHOPRIM-SULFAMETHOXAZOLE 92911071365 No Longer Active Renan Hays MD Active FAMOTIDINE 20 MG TABS by mouth twice a day FAMOTI DINE 06254588708 Active Mitch Urbina DO Active ADULT ASPIRIN LOW STRENGTH 81 MG TBDP 1 by mouth every daily ASPIRIN 04230604304 Active Mitch Urbina DO Active METOPROLOL TARTRATE 50 MG TABS 1 by mouth twice daily METOPROLOL TARTRATE 60155928410 Active Mitch Urbina DO Active BACTRIM DS 800-160 MG TAB 1 tab by mouth twice daily 2 BACTRIM DS 800-160 MG TAB TRIMETHOPRIM-SULFAMETHOXAZOLE Inac tive PROVIGIL 100 MG TABS Take one by mouth daily 4 PROVIGIL 100 MG TABS 170379 MODAFINIL Inactive FUROSEMIDE 40 MG TABS 1 by mouth daily FU ROSEMIDE 40 MG TABS 662411 FUROSEMIDE Inactive KLOR-CON 20 MEQ PACK Take one by mouth daily 8 KLOR-CON 20 MEQ PACK 561927 POTASSIUM CHLORIDE Inactive LISINOPRIL 5 MG TABS 1 by mouth every day LISINOPRIL 5 MG TABS 270190 LISINOPRIL Inactive COLCRYS 0.6 MG TABS 1 po q 6 hours prn gout pain 03/02 COLCRYS 0.6 MG TABS COLCHICINE Inactive JANUVIA 100 MG TABS 1/2 by mouth every day JANUVI A 100 MG TABS SITAGLIPTIN PHOSPHATE Inactive SIMVASTATIN 20 MG TABS 1 tab daily at bedtime SIMVASTATIN 20 MG TABS 364484 SIMVASTATIN Inactive COUMADIN 6 MG TABS 1 by mouth every other day COUMADIN 6 MG TABS 064202 WARFARIN SODIUM Inactive COUMADIN 5 MG TABS 1 by mouth every other day COUMADIN 5 MG TABS 364781 WARFARIN SODIUM Inactive LISINOPRIL 20 MG TABS 1 tab po at HS KOKI NOPRIL 20 MG TABS 635759 LISINOPRIL Inactive LISINOPRIL-HYDROCHLOROTHIAZIDE 20-12.5 MG TABS 1 tab by mouth da rocky LISINOPRIL-HYDROCHLOROTHIAZIDE 20-12.5 MG TABS 518399 LISINOPRIL-HYDROCHLOROTHIAZIDE Inactive POLYTRIM 09541-7.1 UNIT/ML-% SOLN 1 drop in affected e ye every 3 hours while awake x 7 days POLYTRIM 24554-2.1 UNIT/ML-% SOLN 70622 7 POLYMYXIN B-TRIMETHOPRIM Inactive COUMADIN 4 MG TABS 1 tablet daily COUMADIN 4 MG TABS 988889 WARFARIN SODIUM Inactive CLONIDINE HCL 0.1 MG TABS 1 po bid 7 days, then 1/2 tab po b id 7 days CLONIDINE HCL 0.1 MG TABS 904470 CLONIDINE HCL I nactive ALLOPURINOL 300 MG TABS Take 1 tablet by mouth daily 2 ALLOPURINOL 300 MG TABS 553427 ALLOPURINOL Inactive MECLIZINE HCL 25 MG TAB 1 po tid 3 days, then 1/2 tab tid 3 days MECLIZINE HCL 25 MG TAB 161299 MECLIZINE HCL Inactive LOVENOX 100 MG/ML SC SOLN One injection twice a day 09/15/15 LOVENOX 100 MG/ML SC SOLN 524934 ENOXAPARIN SODIUM Inactive Vital Signs Date Name [...] 6.9 % 4.3-6.0 cholesterol, serum 108 mg/dL 666-753 4127/11/01 triglyceride, serum, fasting 112 mg/dL 30-200 HDL [...] 1.0-3.5 Encounters Code Encounter Date Provider Facility CPT-22730 Level 3 Est. 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 CPT-82883 Level 3 Est. Patient 19:19:37 SCHOOL CLERK Mitch W Nona luis [facility] CPT-90212 Level 3 Est. Patient 13:25:53 SCHOOL CLERK Tavo toure MD [facility] CPT-03447 Level 3 Est. Patient 18:17:28 CDT Mitch luis [facility] CPT-03318 Level 3 Est. Patient 15:22:57 CDT Mitch W L janelle [facility] CPT-19799 Level 3 Est. Patient 18:21:50 CDT Mitch W L janelle [facility] CPT-06034 Level 3 Est. Patient 18:20:38 CDT Mitch W L janelle [facility] CPT-50656 Level 3 Est. Patient 15:37:55 CDT Mitch W L janelle [facility] CPT-49249 Level 2 Est. Patient 15:54:44 CDT Carmine benton MD [facility] CPT-97107 Level 3 Est. Patient 21:46:01 SCHOOL CLERK Mitch luis [facility] CPT-32125 Level 3 Est. Patient 22:15:50 CDT Mitch luis [facility] CPT-16550 Level 3 Est. Patient 10:48:15 CDT Mitch luis [facility] CPT-65384 Level 3 Est. Patient 23:20:57 CDT Tavo toure MD [facility] CPT-30016 Level 3 Est. Patient 16:26:13 CDT Mitch luis [facility] Procedures Code Procedure Name Date Entry Date Standard Desc ription CPT-01773 Venipuncture Draw Fee 10:13:28 SCHOOL CLERK CPT-27054 Venipuncture Draw Fee 08:31:11 CDT CPT-74609 Aspir/Inject Med Joint 18:17:28 CDT CPT-14089 Venipuncture Draw Fee 10:13:30 CDT CPT-99314 Venipuncture Draw Fee 08:31:43 SCHOOL CLERK CPT-JTINJ Joint Injection 18:34:50 CDT CPT-60058 Knee 3V 12:25:09 CDT CPT-12012 Venipuncture Draw Fee 12:15:57 CDT CPT-060 Medical Surveillance Exam 21:31:43 CDT 2011 CPT-17081 Venipuncture Draw Fee 08:32:05 SCHOOL CLERK CPT-OV Office Visit 18:19:06 CDT
--- OUTSIDE RECORDS SUMMARY | 2020-01-18 12:40 | XMS REPORT | Clinical Summary ---
Author Author Admin, Mitch Leon Organization [facility] Address Unknown Phone Unavailable Allergies, [...] vessel, [place] or graft EDEMA 782.3 Active Mitch [...] DO Gout, unspecified BRUISE 924.9 Active Mitch Urbian DO Con tusion of unspecified site OLECRANON [...] 1/2 tab tid 3 days MECLIZINE HCL 91337074627 No Longer Active Corey SEGURA Active ALLOPURINOL 300 MG TABS Take 1 tablet by mouth daily 2 ALLOPURINOL 24374589465 No Longer Active Corey SEGURA Activ e CLONIDINE HCL 0.1 MG TABS 1 po bid 7 days, then 1/2 tab po b id 7 days CLONIDINE HCL 49368356251 No Longer Active Corey SEGURA Active COUMADIN 5 MG TABS 1 tab PO daily WARFARIN SODIUM 32829490648 Active Mitch Urbina DO Active COUMADIN 4 MG TABS 1 tablet daily WARFARIN SODI UM 07703898882 No Longer Active Corey SEGURA Active POLYTRIM 02902-8.1 UNIT/ML-% SOLN 1 drop in affected e ye every 3 hours while awake x 7 days POLYMYXIN B-TRIMETHOPRIM 67966541398 N o Longer Active Corey SEGURA Active LOSARTAN POTASSIUM-HCTZ 100-12.5 MG TABS 1 by mouth da rocky for high blood pressure LOSARTAN POTASSIUM-HCTZ 02520686347 Active Stephy Urbina DO Active LISINOPRIL-HYDROCHLOROTHIAZIDE 20-12.5 MG TABS 1 tab by mouth da rocky LISINOPRIL-HYDROCHLOROTHIAZIDE 43168637201 No Longer Active Mitch luis DO Active LISINOPRIL 20 MG TABS 1 tab po at HS LISINOPRIL 10296483694 No Longer Active Mitch Urbina DO Active COUMADIN 5 MG TABS 1 by mouth every other day WARFARIN SODIUM 80726463762 No Longer Active Mitch Urbina DO Active COUMADIN 6 MG TABS 1 by mouth every other day WARFARIN SODIUM 15164528033 No Longer Active Mitch Urbina DO Active COLCRYS 0.6 MG TABS 1 tab qid prn gout COLCHICINE 92716932890 Active Mitch Urbina DO Active SIMVASTATIN 40 MG TABS 1 tab daily at bedtime S IMVASTATIN 05024037628 Active Mitch Urbina DO Active SIMVASTATIN 20 MG TABS 1 tab daily at bedtime S IMVASTATIN 24424985494 No Longer Active Mitch Urbina DO Active LOVENOX 100 MG/ML SC SOLN One injection twice a day 09/15/15 ENOXAPARIN SODIUM 88016685584 No Longer Active Carmine Navarrete ctive JANUVIA 50 MG TABS Take one by mouth daily DIEGO GLIPTIN PHOSPHATE 79691053872 Active Mitch Urbina DO Active JANUVIA 100 MG TABS 1/2 by mouth every day DIEGO GLIPTIN PHOSPHATE 88263690651 No Longer Active Bijal Philipp RN Active METFORMIN HCL 500 MG TABS 2 by mouth twice daily METFORMIN HCL 08753591949 Active Mitch Urbina DO Active GLIMEPIRIDE 4 MG TABS 1 tab po bid GLIMEPIRIDE 699303 04337 Active Mitch Urbina DO Active COLCRYS 0.6 MG TABS 1 po q 6 hours prn gout pain 03/02 COLCHICINE 77815248353 No Longer Active Camila Harahan Active LISINOPRIL 5 MG TABS 1 by mouth every day LISIN OPRIL 23894702282 No Longer Active Nguyenmolly Perez Active KLOR-CON 20 MEQ PACK Take one by mouth daily 8 POTASSIUM CHLORIDE 14725074335 No Longer Active Nguyenmolly Perez Active FUROSEMIDE 40 MG TABS 1 by mouth daily FUROSEMI DE 09873923439 No Longer Active Nguyen Perez Active PROVIGIL 200 MG TABS 1/2 tab po q day MODAFINIL 33119 861603 Active Mitch Urbina DO Active PROVIGIL 100 MG TABS Take one by mouth daily MO DAFINIL 02972411020 No Longer Active Mitch Urbina DO Active BACTRIM DS 800-160 MG TAB 1 tab by mouth twice daily 2 TRIMETHOPRIM-SULFAMETHOXAZOLE 70277894325 No Longer Active Renan Hays MD Active FAMOTIDINE 20 MG TABS by mouth twice a day FAMOTI DINE 21727671237 Active Mitch Urbina DO Active ADULT ASPIRIN LOW STRENGTH 81 MG TBDP 1 by mouth every daily ASPIRIN 21524856710 Active Mitch Urbina DO Active METOPROLOL TARTRATE 50 MG TABS 1 by mouth twice daily METOPROLOL TARTRATE 04646260237 Active Mitch Urbina DO Active BACTRIM DS 800-160 MG TAB 1 tab by mouth twice daily 2 BACTRIM DS 800-160 MG TAB TRIMETHOPRIM-SULFAMETHOXAZOLE Inac tive PROVIGIL 100 MG TABS Take one by mouth daily 4 PROVIGIL 100 MG TABS 307028 MODAFINIL Inactive FUROSEMIDE 40 MG TABS 1 by mouth daily FU ROSEMIDE 40 MG TABS 963220 FUROSEMIDE Inactive KLOR-CON 20 MEQ PACK Take one by mouth daily 8 KLOR-CON 20 MEQ PACK 429785 POTASSIUM CHLORIDE Inactive LISINOPRIL 5 MG TABS 1 by mouth every day LISINOPRIL 5 MG TABS 423408 LISINOPRIL Inactive COLCRYS 0.6 MG TABS 1 po q 6 hours prn gout pain 03/02 COLCRYS 0.6 MG TABS COLCHICINE Inactive JANUVIA 100 MG TABS 1/2 by mouth every day JANUVI A 100 MG TABS SITAGLIPTIN PHOSPHATE Inactive SIMVASTATIN 20 MG TABS 1 tab daily at bedtime SIMVASTATIN 20 MG TABS 697328 SIMVASTATIN Inactive COUMADIN 6 MG TABS 1 by mouth every other day COUMADIN 6 MG TABS 151914 WARFARIN SODIUM Inactive COUMADIN 5 MG TABS 1 by mouth every other day COUMADIN 5 MG TABS 239645 WARFARIN SODIUM Inactive LISINOPRIL 20 MG TABS 1 tab po at HS KOIK NOPRIL 20 MG TABS 101982 LISINOPRIL Inactive LISINOPRIL-HYDROCHLOROTHIAZIDE 20-12.5 MG TABS 1 tab by mouth da rocky LISINOPRIL-HYDROCHLOROTHIAZIDE 20-12.5 MG TABS 267909 LISINOPRIL-HYDROCHLOROTHIAZIDE Inactive POLYTRIM 11286-7.1 UNIT/ML-% SOLN 1 drop in affected e ye every 3 hours while awake x 7 days POLYTRIM 67003-6.1 UNIT/ML-% SOLN 07605 7 POLYMYXIN B-TRIMETHOPRIM Inactive COUMADIN 4 MG TABS 1 tablet daily COUMADIN 4 MG TABS 307258 WARFARIN SODIUM Inactive CLONIDINE HCL 0.1 MG TABS 1 po bid 7 days, then 1/2 tab po b id 7 days CLONIDINE HCL 0.1 MG TABS 317773 CLONIDINE HCL I nactive ALLOPURINOL 300 MG TABS Take 1 tablet by mouth daily 2 ALLOPURINOL 300 MG TABS 378275 ALLOPURINOL Inactive MECLIZINE HCL 25 MG TAB 1 po tid 3 days, then 1/2 tab tid 3 days MECLIZINE HCL 25 MG TAB 573884 MECLIZINE HCL Inactive LOVENOX 100 MG/ML SC SOLN One injection twice a day 09/15/15 LOVENOX 100 MG/ML SC SOLN 410915 ENOXAPARIN SODIUM Inactive Vital Signs Date Name [...] (INR) coagulation managed by Mitch Urbina DO coagulation managed by Mitch Urbina coagulation managed by Mitch Urbina DO international normalized ratio (INR) international normalized ratio (INR) international normalized ratio (INR) coagulation managed by Mitch Urbina DO international normalized ratio (INR) Lab Report: CBC, Comp. Metabolic Panel, HGBA1C, MICROALBUMIN, Uric Acid - Chemistry sodium, serum 136 mmol/L 425-799 2901/07/25 potassium, serum 4.6 mmol/L 3.5-5.2 chloride, serum [...] 6.9 % 4.3-6.0 cholesterol, serum 108 mg/dL 987-174 1716/11/01 triglyceride, serum, fasting 112 mg/dL 30-200 HDL cholesterol, serum 32 mg/dL 32-96 LDL cholesterol, serum 54 mg/dL 0-130 Lab Report: CBC, HGBA1C, Lipid Panel - H ematology hemoglobin, blood 9.7 g/dL 13.5-17.5 erythrocyte (RBC) count 3.33 10^6/MM^3 10*6/mm3 4.69-6.1 3 leukocyte count, blood 7.0 10^3/MM^3 10*3/mm3 4.6-10.2 hematocrit, blood 30.5 % 41.0-53.0 mean corpuscular hemoglobin concentration, RBC 31.9 G/DL % 31.8-35.4 red blood cell distribution width 16.0 % 11 .6-14.8 platelet count 374 10^3/MM^3 10*3/mm3 643-923 4890/11/01 mean corpuscular volume, RBC 92 fL 80-97 mean corpuscular hemoglobin, RBC 29.2 pg 27. 0-31.2 Lab Report: Prothrombin Time - Coagulati on prothrombin time (patient) 15.6 SECS s 11.4-12.8 international normalized ratio (INR) 1.6 1.0-3.5 prothrombin time (patient) 18.4 SECS s 11.1-13.4 international normalized ratio (INR) 2.2 1.0-3.5 prothrombin time (patient) 16.8 SECS s 11.1-13.4 international normalized ratio (INR) 1.9 1.0-3.5 prothrombin time (patient) 17.8 SECS s 11.4-12.8 international normalized ratio (INR) 2.1 1.0-3.5 international normalized ratio (INR) 2.6 1.0-3.5 prothrombin time (patient) 19.9 SECS s 11.4-12.8 prothrombin time (patient) 18.4 SECS s 11.1-13.4 international normalized ratio (INR) 2.2 1.0-3.5 Encounters Code Encounter Date Provider Facility CPT-59338 Level 3 Est. Patient 13:53:19 SHOEMAKING FINISHER Mitch luis [facility] CPT-01501 Level 3 Est. Patient 19:19:37 SHOEMAKING FINISHER Mitch luis DO [facility] CPT-37108 Level 3 Est. Patient 13:25:53 SHOEMAKING FINISHER Tavo toure MD [facility] CPT-00028 Level 3 Est. Patient 18:17:28 CDT Mitch luis [facility] CPT-54017 Level 3 Est. Patient 15:22:57 CDT Mitch luis [facility] CPT-38138 Level 3 Est. Patient 18:21:50 CDT Mitch luis [facility] CPT-66608 Level 3 Est. Patient 18:20:38 CDT Mitch luis [facility] CPT-72544 Level 3 Est. Patient 15:37:55 CDT Mitch luis [facility] CPT-49855 Level 2 Est. Patient 15:54:44 CDT Carmine benton MD [facility] CPT-96404 Level 3 Est. Patient 21:46:01 SHOEMAKING FINISHER Mitch luis [facility] CPT-06420 Level 3 Est. Patient 22:15:50 CDT Mitch luis [facility] CPT-37905 Level 3 Est. Patient 10:48:15 CDT Mitch luis [facility] CPT-41384 Level 3 Est. Patient 23:20:57 CDT Tavo toure MD [facility] CPT-43215 Level 3 Est. Patient 16:26:13 CDT Mitch luis [facility] Procedures Code Procedure Name Date Entry Date Standard Desc ription CPT-07448 Venipuncture Draw Fee 10:13:28 SHOEMAKING FINISHER CPT-66450 Venipuncture Draw Fee 08:31:11 CDT CPT-33199 Aspir/Inject Med Joint 18:17:28 CDT CPT-14370 Venipuncture Draw Fee 10:13:30 CDT CPT-69869 Venipuncture Draw Fee 08:31:43 SHOEMAKING FINISHER CPT-JTINJ Joint Injection 18:34:50 CDT CPT-99846 Knee 3V 12:25:09 CDT CPT-87052 Venipuncture Draw Fee 12:15:57 CDT CPT-060 Medical Surveillance Exam 21:31:43 CDT 2011 CPT-94132 Venipuncture Draw Fee 08:32:05 SHOEMAKING FINISHER CPT-OV Office Visit 18:19:06 CDT
--- OUTSIDE RECORDS SUMMARY | 2020-01-18 12:40 | XMS REPORT | Clinical Summary ---
Author Author Admin, Mitch Leon Organization [facility] Address Unknown Phone Unavailable Allergies, Adverse [...] Coronary atherosclerosis of unspecified type of vessel, [place] or graft EDEMA 782.3 Active Mitch Urbina [...] and fatigue Cough, chronic 786.2 Active Tavo Hilotn MD Cough Sebaceous cyst, infected 706.2 Active Guerrero SEGURA Sebaceous cyst Cellulitis 682.9 Active Mitch Urbina DO Cellulitis and abscess of unspecified sites Medication List Medication Instructions Start Date Stop Date Generic Name NDC Status Provider Patient Instruction MECLIZINE HCL 25 MG TAB 1 po tid 3 days, then 1/2 tab tid 3 days MECLIZINE HCL 87486014188 No Longer Active Corey SEGURA Active ALLOPURINOL 300 MG TABS Take 1 tablet by mouth daily 2 ALLOPURINOL 90050299725 No Longer Active Corey SEGURA Activ e CLONIDINE HCL 0.1 MG TABS 1 po bid 7 days, then 1/2 tab po b id 7 days CLONIDINE HCL 10828959661 No Longer Active Corey SEGURA Active COUMADIN 5 MG TABS 1 tab PO daily WARFARIN SODIUM 62757479168 Active Mitch Urbina DO Active COUMADIN 4 MG TABS 1 tablet daily WARFARIN SODI UM 41705800227 No Longer Active Corey SEGURA Active POLYTRIM 35247-2.1 UNIT/ML-% SOLN 1 drop in affected e ye every 3 hours while awake x 7 days POLYMYXIN B-TRIMETHOPRIM 34397538664 N o Longer Active Corey SEGURA Active LOSARTAN POTASSIUM-HCTZ 100-12.5 MG TABS 1 by mouth [place] for high blood pressure LOSARTAN POTASSIUM-HCTZ 19664726920 Active Stephy Urbina DO Active LISINOPRIL-HYDROCHLOROTHIAZIDE 20-12.5 MG TABS 1 tab by mouth da rocky LISINOPRIL-HYDROCHLOROTHIAZIDE 39005434757 No Longer Active Mitch luis DO Active LISINOPRIL 20 MG TABS 1 tab po at HS LISINOPRIL 03938289482 No Longer Active Mitch Urbina DO Active COUMADIN 5 MG TABS 1 by mouth every other day WARFARIN SODIUM 27230759939 No Longer Active Mitch Urbina DO Active COUMADIN 6 MG TABS 1 by mouth every other day WARFARIN SODIUM 28407453204 No Longer Active Mitch Urbina DO Active COLCRYS 0.6 MG TABS 1 tab qid prn gout COLCHICINE 69398029207 Active Mitch Urbina DO Active SIMVASTATIN 40 MG TABS 1 tab daily at bedtime S IMVASTATIN 79617407583 Active Mitch Urbina DO Active SIMVASTATIN 20 MG TABS 1 tab daily at bedtime S IMVASTATIN 51062468059 No Longer Active Mitch Urbina DO Active LOVENOX 100 MG/ML SC SOLN One injection twice a day 09/15/15 ENOXAPARIN SODIUM 56408035670 No Longer Active Carmine Navarrete ctive JANUVIA 50 MG TABS Take one by mouth daily DIEGO GLIPTIN PHOSPHATE 87180323016 Active Mitch Urbina DO Active JANUVIA 100 MG TABS 1/2 by mouth every day DIEGO GLIPTIN PHOSPHATE 72447626318 No Longer Active Bijal Philipp RN Active METFORMIN HCL 500 MG TABS 2 by mouth twice daily METFORMIN HCL 53443292357 Active Mitch Urbina DO Active GLIMEPIRIDE 4 MG TABS 1 tab po bid GLIMEPIRIDE 484411 98587 Active Mitch Urbina DO Active COLCRYS 0.6 MG TABS 1 po q 6 hours prn gout pain 03/02 COLCHICINE 99668138538 No Longer Active Camila Juncal Active LISINOPRIL 5 MG TABS 1 by mouth every day LISIN OPRIL 34571702566 No Longer Active Nguyenmolly Perez Active KLOR-CON 20 MEQ PACK Take one by mouth daily 8 POTASSIUM CHLORIDE 07461811935 No Longer Active Nguyenmolly Perez Active FUROSEMIDE 40 MG TABS 1 by mouth daily FUROSEMI DE 19538036789 No Longer Active Nguyen Perez Active PROVIGIL 200 MG TABS 1/2 tab po q day MODAFINIL 08620 025815 Active Mitch Urbina DO Active PROVIGIL 100 MG TABS Take one by mouth daily MO DAFINIL 56039395719 No Longer Active Mitch Urbina DO Active BACTRIM DS 800-160 MG TAB 1 tab by mouth twice daily 2 TRIMETHOPRIM-SULFAMETHOXAZOLE 66688865290 No Longer Active Renan Hays MD Active FAMOTIDINE 20 MG TABS by mouth twice a day FAMOTI DINE 23255433806 Active Mitch Urbina DO Active ADULT ASPIRIN LOW STRENGTH 81 MG TBDP 1 by mouth every daily ASPIRIN 19097907350 Active Mitch Urbina DO Active METOPROLOL TARTRATE 50 MG TABS 1 by mouth twice daily METOPROLOL TARTRATE 18128427108 Active Mitch Urbina DO Active BACTRIM DS 800-160 MG TAB 1 tab by mouth twice daily 2 BACTRIM DS 800-160 MG TAB TRIMETHOPRIM-SULFAMETHOXAZOLE Inac tive PROVIGIL 100 MG TABS Take one by mouth daily 4 PROVIGIL 100 MG TABS 039334 MODAFINIL Inactive FUROSEMIDE 40 MG TABS 1 by mouth daily FU ROSEMIDE 40 MG TABS 284013 FUROSEMIDE Inactive KLOR-CON 20 MEQ PACK Take one by mouth daily 8 KLOR-CON 20 MEQ PACK 459385 POTASSIUM CHLORIDE Inactive LISINOPRIL 5 MG TABS 1 by mouth every day LISINOPRIL 5 MG TABS 918418 LISINOPRIL Inactive COLCRYS 0.6 MG TABS 1 po q 6 hours prn gout pain 03/02 COLCRYS 0.6 MG TABS COLCHICINE Inactive JANUVIA 100 MG TABS 1/2 by mouth every day JANUVI A 100 MG TABS SITAGLIPTIN PHOSPHATE Inactive SIMVASTATIN 20 MG TABS 1 tab daily at bedtime SIMVASTATIN 20 MG TABS 198631 SIMVASTATIN Inactive COUMADIN 6 MG TABS 1 by mouth every other day COUMADIN 6 MG TABS 970249 WARFARIN SODIUM Inactive COUMADIN 5 MG TABS 1 by mouth every other day COUMADIN 5 MG TABS 558408 WARFARIN SODIUM Inactive LISINOPRIL 20 MG TABS 1 tab po at HS KOKI NOPRIL 20 MG TABS 323281 LISINOPRIL Inactive LISINOPRIL-HYDROCHLOROTHIAZIDE 20-12.5 MG TABS 1 tab by mouth da rocky LISINOPRIL-HYDROCHLOROTHIAZIDE 20-12.5 MG TABS 187958 LISINOPRIL-HYDROCHLOROTHIAZIDE Inactive POLYTRIM 82247-3.1 UNIT/ML-% SOLN 1 drop in affected e ye every 3 hours while awake x 7 days POLYTRIM 53151-8.1 UNIT/ML-% SOLN 86501 7 POLYMYXIN B-TRIMETHOPRIM Inactive COUMADIN 4 MG TABS 1 tablet daily COUMADIN 4 MG TABS 593497 WARFARIN SODIUM Inactive CLONIDINE HCL 0.1 MG TABS 1 po bid 7 days, then 1/2 tab po b id 7 days CLONIDINE HCL 0.1 MG TABS 777411 CLONIDINE HCL I nactive ALLOPURINOL 300 MG TABS Take 1 tablet by mouth daily 2 ALLOPURINOL 300 MG TABS 407027 ALLOPURINOL Inactive MECLIZINE HCL 25 MG TAB 1 po tid 3 days, then 1/2 tab tid 3 days MECLIZINE HCL 25 MG TAB 572735 MECLIZINE HCL Inactive LOVENOX 100 MG/ML SC SOLN One injection twice a day 09/15/15 LOVENOX 100 MG/ML SC SOLN 185565 ENOXAPARIN SODIUM Inactive Vital Signs Date Name [...] Acid - Chemistry sodium, serum 136 mmol/L 630-723 2480/07/25 potassium, serum 4.6 mmol/L 3.5-5.2 chloride, serum [...] Panel - Chemistry sodium, serum 137 mmol/L 433-555 7593/11/14 potassium, serum 4.4 mmol/L 3.5-5.2 chloride, serum [...] 8.0 % 4.3-6.0 cholesterol, serum 130 mg/dL 905-115 8715/11/14 triglyceride, serum, fasting 288 mg/dL 30-200 HDL [...] 1.0-3.5 Encounters Code Encounter Date Provider Facility CPT-23102 Level 3 Est. Patient 13:53:19 MECHANICAL SERVICE REPRESENTATIVE Mitch luis [facility] CPT-36406 Level 3 Est. Patient 19:19:37 MECHANICAL SERVICE REPRESENTATIVE Mitch luis [facility] CPT-94225 Level 3 Est. Patient 13:25:53 MECHANICAL SERVICE REPRESENTATIVE Tavo toure MD [facility] CPT-05591 Level 3 Est. Patient 18:17:28 CDT Mitch luis [facility] CPT-61624 Level 3 Est. Patient 15:22:57 CDT Mitch luis [facility] CPT-42413 Level 3 Est. Patient 18:21:50 CDT Mitch luis [facility] CPT-18906 Level 3 Est. Patient 18:20:38 CDT Mitch luis [facility] CPT-30834 Level 3 Est. Patient 15:37:55 CDT Mitch luis [facility] CPT-99897 Level 2 Est. Patient 15:54:44 CDT Carmine benton MD [facility]-14968 Level 3 Est. Patient 21:46:01 MECHANICAL SERVICE REPRESENTATIVE Mitch luis [facility] CPT-74414 Level 3 Est. Patient 22:15:50 CDT Mitch luis [facility] CPT-81978 Level 3 Est. Patient 10:48:15 CDT Mitch luis DO [facility] CPT-08556 Level 3 Est. Patient 23:20:57 CDT Tavo toure MD [facility] CPT-16665 Level 3 Est. Patient 16:26:13 CDT Mitch luis [facility] Procedures Code Procedure Name Date Entry Date Standard Desc ription CPT-05664 Venipuncture Draw Fee 10:13:28 MECHANICAL SERVICE REPRESENTATIVE CPT-13593 Venipuncture Draw Fee 08:31:11 CDT CPT-39929 Aspir/Inject Med Joint 18:17:28 CDT CPT-41276 Venipuncture Draw Fee 10:13:30 CDT CPT-41005 Venipuncture Draw Fee 08:31:43 MECHANICAL SERVICE REPRESENTATIVE CPT-JTINJ Joint Injection 18:34:50 CDT CPT-81869 Knee 3V 12:25:09 CDT CPT-60225 Venipuncture Draw Fee 12:15:57 CDT CPT-060 Medical Surveillance Exam 21:31:43 CDT 2011 CPT-10818 Venipuncture Draw Fee 08:32:05 MECHANICAL SERVICE REPRESENTATIVE CPT-OV Office Visit 18:19:06 CDT
--- OUTSIDE RECORDS SUMMARY | 2020-01-18 12:40 | XMS REPORT | Clinical Summary ---
Author Author Admin, Mitch Leon Organization [facility] Address Unknown Phone Unavailable Allergies, Adverse Reactions, [...] DO Ulcer of other part of foot SEROMA ICD-998.13 Inactive Mitch Urbina DO REACTIVE [...] DO UNSPECIFIED ANEMIA ICD-285.9 Inactive Mitch Ambrose Nona luis DO Malaise and fatigue ICD-780.79 Inactive Mitch Urbina DO Cough, chronic ICD-786.2 Inactive Mitch Arnol Carlitos Tejeda O Sebaceous cyst, infected ICD-706.2 Inactive Mitch Urbina DO Cellulitis ICD-682.9 Inactive Mitch Arnol Urbina DO 10/23 CELLULITIS, GROIN, LEFT ICD-682.2 Inactive Zoya ponce Arnol Urbina DO Medication List Medication Instructions Start Date Stop Date Generic Name NDC Status Provider Patient Instruction KEFLEX 500 MG CAP 1 po qid CEPHALEXIN [id number] Act juan Mitch Arnol Urbina DO Active LOSARTAN POTASSIUM 100 MG TABS 1 pill by mouth daily, for bl ood pressure LOSARTAN POTASSIUM 59314946128 Active Ana Wallace Active AMLODIPINE BESYLATE 5 MG TABS 1 tablet by mouth daily AMLODIPINE BESYLATE 04077232651 No Longer Active Joe Davisdonaldo VALENCIA Active MITIGARE 0.6 MG ORAL CAPS 2 capsules at onset of gout pain, then take one capsule at 1 hour if symptoms persist. COLCHICINE 59 781440535 Active Mitch Urbina DO Active COUMADIN 1 MG TAB 2 tabs orally daily with the 5mg tab to equal 7mg daily WARFARIN SODIUM 80885605332 Active Mitch Urbina DO Active COLCRYS 0.6 MG TABS 1 tab qid prn gout COLCHICINE 36805437814 Active Norma Cazares Active INVOKANA 100 MG ORAL TABS 1 tablet orally daily CANAGLIFLOZIN 43676841476 Active Mitch Urbina DO Active MINOXIDIL 2.5 MG TABS 1 tablet daily for high blood pressure 10/23 MINOXIDIL 70798612307 Active Mitch Urbina DO Active MECLIZINE HCL 25 MG TAB 1 po tid 3 days, then 1/2 tab tid 3 days MECLIZINE HCL 44357884305 No Longer Active Corey SEGURA Active ALLOPURINOL 300 MG TABS Take 1 tablet by mouth daily 2 ALLOPURINOL 28555860211 No Longer Active Corey SEGURA Activ e CLONIDINE HCL 0.1 MG TABS 1 po bid 7 days, then 1/2 tab po b id 7 days CLONIDINE HCL 46251087837 No Longer Active Corey SEGURA Active COUMADIN 5 MG TABS 1 tab PO daily WARFARIN SODIUM 21129518065 Active Mitch Urbina DO Active COUMADIN 4 MG TABS 1 tablet daily WARFARIN SODI UM 32828517658 No Longer Active Corey SEGURA Active POLYTRIM 89500-8.1 UNIT/ML-% SOLN 1 drop in affected e ye every 3 hours while awake x 7 days POLYMYXIN B-TRIMETHOPRIM 94317481515 N o Longer Active Corey SEGURA Active LOSARTAN POTASSIUM-HCTZ 100-12.5 MG TABS 1 by mouth da rocky for high blood pressure LOSARTAN POTASSIUM-HCTZ 11897770186 No Longer A ctive Mitch Urbina DO Active LISINOPRIL-HYDROCHLOROTHIAZIDE 20-12.5 MG TABS 1 tab by mouth da rocky LISINOPRIL-HYDROCHLOROTHIAZIDE 14019181635 No Longer Active Mitch Castellano janelle DO Active LISINOPRIL 20 MG TABS 1 tab po at HS LISINOPRIL 47382813441 No Longer Active Mitch Urbina DO Active COUMADIN 5 MG TABS 1 by mouth every other day WARFARIN SODIUM 67742182911 No Longer Active Mitch Urbina DO Active COUMADIN 6 MG TABS 1 by mouth every other day WARFARIN SODIUM 20904606853 No Longer Active Mitch Urbina DO Active SIMVASTATIN 40 MG TABS 1 tab daily at bedtime S IMVASTATIN 99097536968 Active Mitch Urbina DO Active SIMVASTATIN 20 MG TABS 1 tab daily at bedtime S IMVASTATIN 87320635394 No Longer Active Mitch Urbina DO Active LOVENOX 100 MG/ML SC SOLN One injection twice a day 09/15/15 ENOXAPARIN SODIUM 09832257316 No Longer Active Carmine Yusuf MD A ctive JANUVIA 50 MG TABS Take one by mouth daily DIEGO GLIPTIN PHOSPHATE 83864809955 Active Mitch Urbina DO Active JANUVIA 100 MG TABS 1/2 by mouth every day DIEGO GLIPTIN PHOSPHATE 81557912534 No Longer Active Bijal Segal RN Active METFORMIN HCL 500 MG TABS 2 by mouth twice daily METFORMIN HCL 57403066668 Active Mitch Urbina DO Active GLIMEPIRIDE 4 MG TABS 1 tab po bid GLIMEPIRIDE 416115 47835 Active Mitch Urbina DO Active COLCRYS 0.6 MG TABS 1 po q 6 hours prn gout pain 03/02 COLCHICINE 32151499797 No Longer Active Camila Reese Active LISINOPRIL 5 MG TABS 1 by mouth every day LISIN OPRIL 05228059821 No Longer Active Nguyen Perez Active KLOR-CON 20 MEQ PACK Take one by mouth daily 8 POTASSIUM CHLORIDE 55074635838 No Longer Active Nguyenmolly Perez Active FUROSEMIDE 40 MG TABS 1 by mouth daily FUROSEMI DE 15606113989 No Longer Active Nguyenmac Perez Active PROVIGIL 200 MG TABS 1/2 tab po q day MODAFINIL 63408 936345 Active Mitch Urbina DO Active PROVIGIL 100 MG TABS Take one by mouth daily MO DAFINIL 41927389692 No Longer Active Mitch Urbina DO Active BACTRIM DS 800-160 MG TAB 1 tab by mouth twice daily 2 TRIMETHOPRIM-SULFAMETHOXAZOLE 95880600123 No Longer Active Renan Hays MD Active FAMOTIDINE 20 MG TABS by mouth twice a day FAMOTI DINE 50743755510 Active Mitch Urbina DO Active ADULT ASPIRIN LOW STRENGTH 81 MG TBDP 1 by mouth every daily ASPIRIN 96508183352 Active Mitch Urbina DO Active METOPROLOL TARTRATE 50 MG TABS 1 by mouth twice daily METOPROLOL TARTRATE 17357484154 Active Mitch Urbina DO Active BACTRIM DS 800-160 MG TAB 1 tab by mouth twice daily 2 BACTRIM DS 800-160 MG TAB 582499 TRIMETHOPRIM-SULFAMETHOXAZOLE Inac tive PROVIGIL 100 MG TABS Take one by mouth daily 4 PROVIGIL 100 MG TABS 260814 MODAFINIL Inactive FUROSEMIDE 40 MG TABS 1 by mouth daily FU ROSEMIDE 40 MG TABS 328529 FUROSEMIDE Inactive KLOR-CON 20 MEQ PACK Take one by mouth daily 8 KLOR-CON 20 MEQ PACK 5082052 POTASSIUM CHLORIDE Inactive LISINOPRIL 5 MG TABS 1 by mouth every day LISINOPRIL 5 MG TABS 068262 LISINOPRIL Inactive COLCRYS 0.6 MG TABS 1 po q 6 hours prn gout pain 03/02 COLCRYS 0.6 MG TABS 906341 COLCHICINE Inactive JANUVIA 100 MG TABS 1/2 by mouth every day JANUVI A 100 MG TABS SITAGLIPTIN PHOSPHATE Inactive SIMVASTATIN 20 MG TABS 1 tab daily at bedtime SIMVASTATIN 20 MG TABS 365523 SIMVASTATIN Inactive COUMADIN 6 MG TABS 1 by mouth every other day COUMADIN 6 MG TABS 315509 WARFARIN SODIUM Inactive COUMADIN 5 MG TABS 1 by mouth every other day COUMADIN 5 MG TABS 029482 WARFARIN SODIUM Inactive LISINOPRIL 20 MG TABS 1 tab po at HS KOKI NOPRIL 20 MG TABS 718327 LISINOPRIL Inactive LISINOPRIL-HYDROCHLOROTHIAZIDE 20-12.5 MG TABS 1 tab by mouth da rocky LISINOPRIL-HYDROCHLOROTHIAZIDE 20-12.5 MG TABS 269053 LISINOPRIL-HYDROCHLOROTHIAZIDE Inactive POLYTRIM 74583-4.1 UNIT/ML-% SOLN 1 drop in affected e ye every 3 hours while awake x 7 days POLYTRIM 02640-3.1 UNIT/ML-% SOLN 29399 7 POLYMYXIN B-TRIMETHOPRIM Inactive COUMADIN 4 MG TABS 1 tablet daily COUMADIN 4 MG TABS 205759 WARFARIN SODIUM Inactive CLONIDINE HCL 0.1 MG TABS 1 po bid 7 days, then 1/2 tab po b id 7 days CLONIDINE HCL 0.1 MG TABS 682601 CLONIDINE HCL I nactive ALLOPURINOL 300 MG TABS Take 1 tablet by mouth daily 2 ALLOPURINOL 300 MG TABS 914325 ALLOPURINOL Inactive MECLIZINE HCL 25 MG TAB 1 po tid 3 days, then 1/2 tab tid 3 days MECLIZINE HCL 25 MG TAB 996775 MECLIZINE HCL Inactive AMLODIPINE BESYLATE 5 MG TABS 1 tablet by mouth daily AMLODIPINE BESYLATE 5 MG TABS 093478 AMLODIPINE BESYLATE Inactive LOVENOX 100 MG/ML SC SOLN One injection twice a day 09/15/15 LOVENOX 100 MG/ML SC SOLN 831008 ENOXAPARIN SODIUM Inactive Vital Signs Date Name Value Unit Range Description blood pressure, diastolic 70 mm[Hg] BP mane blood pressure, systolic 142 mm[Hg] BP sys height E&M 70 [in_us] Bdy height pulse rate E&M 75 /min Heart rate temperature E&M 98.7 [degF] Body temp erature weight E&M 225.31 [lb_av] Weight Measure d blood pressure, diastolic 63 mm[Hg] BP maen blood pressure, systolic 136 mm[Hg] BP sys [...] - Chem istry sodium, serum 139 mmol/L 830-634 7359/07/17 potassium, serum 4.2 mmol/L 3.5-5.2 chloride, serum [...] 11 .6-14.8 platelet count 216 10^3/MM^3 10*3/mm3 588-600 0981/06/12 leukocyte count, blood 8.7 10^3/MM^3 10*3/mm3 4.6-10.2 erythrocyte (RBC) count 5.10 10^6/MM^3 10*6/mm3 4.50-6.5 0 hemoglobin, blood 14.6 g/dL 14.0-18.0 hematocrit, blood 43.9 % 40.0-54.0 Lab Report: CBC, MICROALB/CREAT W/RATIO - Lab microalbumin, urine 10 mg/L 0-19 Lab Report: Comp. Metabolic Panel, Thyro id Stimulating Hormone (L), Pros ... - Chemistry sodium, serum 144 mmol/L 857-803 6910/06/12 creatinine, serum 1.32 mg/dL 0.55-1.30 alanine aminotransferase [...] 7-18 Lab Report: Lipid Panel, HEPATIC PANEL, MICROALB/CREAT W/RATIO, HGBA1C, CBC - Chemistry LDL cholesterol, serum 60 mg/dL 0-130 aspartate aminotransferase (SGOT), serum 24 U/L 15-37 alanine aminotransferase (SGPT), serum 29 U/L 12-78 bilirubin, serum, total 0.60 mg/dL 0.00-1.00 HDL cholesterol, serum 39 mg/dL 32-96 triglyceride, serum, fasting 187 mg/dL 30-200 cholesterol, serum 136 mg/dL 040-609 8459/08/09 albumin/creatinine ratio, urine < 30 mg/g mg/g{creat} [...] 15.4 SECS s 11.1-13.4 prothrombin time (patient) 21.3 SECS s 11.1-13.4 international normalized ratio (INR) 2.7 1.0-3.5 Encounters Code Encounter Date Provider Facility CPT-35029 Level 3 Est. Patient 19:43:34 CDT Mitch luis [facility] CPT-01370 Level 4 Est. Patient 09:30:18 CDT Mitch Castellano janelle [facility] CPT-01022 Level 3 Est. Patient 15:10:14 CDT Joe kamara [facility]-40463 Level 3 Est. Patient 15:03:46 CDT Joe Jason anh [facility] CPT-81390 Level 3 Est. Patient 14:21:06 CDT Mitch luis [facility]-07557 Level 3 Est. Patient 14:52:06 [facility] Patient 09:34:30 CLEAN OUT DRILLER Mitch luis [facility] CPT-74934 Level 3 Est. Patient 09:37:15 CDT Mitch luis [facility] CPT-16988 Level 3 Est. Patient 17:01:00 CLEAN OUT DRILLER Mitch luis [facility] CPT-52207 Level 3 Est. Patient 13:53:19 CLEAN OUT DRILLER Mitch luis [facility] CPT-67443 Level 3 Est. Patient 19:19:37 CLEAN OUT DRILLER Mitch luis [facility] CPT-07376 Level 3 Est. Patient 13:25:53 CLEAN OUT DRILLER Tavo toure MD [facility] CPT-84146 Level 3 Est. Patient 18:17:28 CDT Mitch luis [facility] CPT-89526 Level 3 Est. Patient 15:22:57 CDT Mitch luis [facility] CPT-85929 Level 3 Est. Patient 18:21:50 CDT Mitch luis [facility] CPT-71024 Level 3 Est. Patient 18:20:38 CDT Mitch luis [facility] CPT-01013 Level 3 Est. Patient 15:37:55 CDT Mitch luis [facility] CPT-83921 Level 2 Est. Patient 15:54:44 CDT Carmine benton MD [facility] CPT-17685 Level 3 Est. Patient 21:46:01 CLEAN OUT DRILLER Mitch luis [facility] CPT-83876 Level 3 Est. Patient 22:15:50 CDT Mitch luis [facility] CPT-74702 Level 3 Est. Patient 10:48:15 CDT Mitch luis [facility] CPT-84863 Level 3 Est. Patient 23:20:57 CDT Tavo toure MD [facility] CPT-22834 Level 3 Est. Patient 16:26:13 CDT Mitch luis [facility] Procedures Code Procedure Name Date Entry Date Standard Desc ription CPT-57586 Venipuncture Draw Fee 09:26:17 CDT CPT-80130 PT/INR - LAB USE ONLY 13:32:49 CLEAN OUT DRILLER CPT-79578 Venipuncture Draw Fee 13:32:49 CLEAN OUT DRILLER CPT-23893 PT/INR - LAB USE ONLY 10:34:49 CLEAN OUT DRILLER CPT-74947 Venipuncture Draw Fee 10:34:48 CLEAN OUT DRILLER CPT-85457 PT/INR - LAB USE ONLY 09:22:03 CLEAN OUT DRILLER CPT-98719 Venipuncture Draw Fee 09:22:02 CLEAN OUT DRILLER CPT-00215 Hemoccult IFOBT - LAB USE ONLY 10:27:22 CDT CPT-44357 Venipuncture Draw Fee 08:27:08 CDT CPT-07092 Liver Profile - LAB USE ONLY 08:27:07 CDT 2 CPT-77420 Microalbumin - LAB USE ONLY 08:27:07 CDT 20 25/05/09 CPT-69462 PT/INR - LAB USE ONLY 08:27:07 CDT CPT-68470 HGBA1C - LAB USE ONLY 08:27:07 CDT CPT-46995 CBC - LAB USE ONLY 08:27:07 CDT CPT-89936 Venipuncture Draw Fee 11:09:14 CDT CPT-93145 Venipuncture Draw Fee 08:32:21 CLEAN OUT DRILLER CPT-01738 Venipuncture Draw Fee 09:38:56 CLEAN OUT DRILLER CPT-46241 No Charge Offi Visit 21:36:07 CDT 1 CPT-81009 Venipuncture Draw Fee 10:13:28 CLEAN OUT DRILLER CPT-18822 Venipuncture Draw Fee 08:31:11 CDT CPT-57814 Aspir/Inject Med Joint 18:17:28 CDT CPT-72596 Venipuncture Draw Fee 10:13:30 CDT CPT-46027 Venipuncture Draw Fee 08:31:43 CLEAN OUT DRILLER CPT-JTINJ Joint Injection 18:34:50 CDT CPT-78241 Knee 3V 12:25:09 CDT CPT-51317 Venipuncture Draw Fee 12:15:57 CDT CPT-060 Medical Surveillance Exam 21:31:43 CDT 2011 CPT-80000 Venipuncture Draw Fee 08:32:05 CLEAN OUT DRILLER CPT-OV Office Visit 18:19:06 CDT
--- OUTSIDE RECORDS SUMMARY | 2020-01-18 12:40 | XMS REPORT | Clinical Summary ---
Author Author Admin, Mitch Leon Organization [facility] Address Unknown Phone Unavailable Allergies, [...] atherosclerosis of unspecified type of vessel, pilot point or graft EDEMA 782.3 Active Mitch [...] 1 tablet by mouth daily AMLODIPINE BESYLATE 74828979994 Active Mitch Urbina DO Active MECLIZINE HCL 25 MG TAB 1 po tid 3 days, then 1/2 tab tid 3 days MECLIZINE HCL 84294485029 No Longer Active Corey SEGURA Active ALLOPURINOL 300 MG TABS Take 1 tablet by mouth daily 2 ALLOPURINOL 05025548851 No Longer Active Corey SEGURA Activ e CLONIDINE HCL 0.1 MG TABS 1 po bid 7 days, then 1/2 tab po b id 7 days CLONIDINE HCL 92386381485 No Longer Active Corey SEGURA Active COUMADIN 5 MG TABS 1 tab PO daily WARFARIN SODIUM 24808350066 Active Mitch Urbina DO Active COUMADIN 4 MG TABS 1 tablet daily WARFARIN SODI UM 29828526055 No Longer Active Corey SEGURA Active POLYTRIM 55050-1.1 UNIT/ML-% SOLN 1 drop in affected e ye every 3 hours while awake x 7 days POLYMYXIN B-TRIMETHOPRIM 42264303285 N o Longer Active Corey SEGURA Active LOSARTAN POTASSIUM-HCTZ 100-12.5 MG TABS 1 by mouth da rocky for high blood pressure LOSARTAN POTASSIUM-HCTZ 63264751330 Active Stephy Urbina DO Active LISINOPRIL-HYDROCHLOROTHIAZIDE 20-12.5 MG TABS 1 tab by mouth da rocky LISINOPRIL-HYDROCHLOROTHIAZIDE 91939484948 No Longer Active Mitch luis DO Active LISINOPRIL 20 MG TABS 1 tab po at HS LISINOPRIL 26297925118 No Longer Active Mitch Urbina DO Active COUMADIN 5 MG TABS 1 by mouth every other day WARFARIN SODIUM 05350566537 No Longer Active Mitch Urbina DO Active COUMADIN 6 MG TABS 1 by mouth every other day WARFARIN SODIUM 37194308263 No Longer Active Mitch Urbina DO Active COLCRYS 0.6 MG TABS 1 tab qid prn gout COLCHICINE 03940483106 Active Corey SEGURA Active SIMVASTATIN 40 MG TABS 1 tab daily at bedtime S IMVASTATIN 88942701168 Active Mitch Urbina DO Active SIMVASTATIN 20 MG TABS 1 tab daily at bedtime S IMVASTATIN 21758540189 No Longer Active Mitch Urbina DO Active LOVENOX 100 MG/ML SC SOLN One injection twice a day 09/15/15 ENOXAPARIN SODIUM 65977907944 No Longer Active Carmine Navarrete ctive JANUVIA 50 MG TABS Take one by mouth daily DIEGO GLIPTIN PHOSPHATE 45943369235 Active Mitch Urbina DO Active JANUVIA 100 MG TABS 1/2 by mouth every day DIEGO GLIPTIN PHOSPHATE 03082212179 No Longer Active Bijalseth Segal RN Active METFORMIN HCL 500 MG TABS 2 by mouth twice daily METFORMIN HCL 35578576098 Active Mitch Urbina DO Active GLIMEPIRIDE 4 MG TABS 1 tab po bid GLIMEPIRIDE 941454 02197 Active Mitch Urbina DO Active COLCRYS 0.6 MG TABS 1 po q 6 hours prn gout pain 03/02 COLCHICINE 08927626837 No Longer Active Camilamargarita Reese Active LISINOPRIL 5 MG TABS 1 by mouth every day LISIN OPRIL 18742437767 No Longer Active Nguyenmolly Perez Active KLOR-CON 20 MEQ PACK Take one by mouth daily 8 POTASSIUM CHLORIDE 37390316922 No Longer Active Nguyenmolly Perez Active FUROSEMIDE 40 MG TABS 1 by mouth daily FUROSEMI DE 82604187021 No Longer Active Nguyen Perez Active PROVIGIL 200 MG TABS 1/2 tab po q day MODAFINIL 68536 639609 Active Mitch Urbina DO Active PROVIGIL 100 MG TABS Take one by mouth daily MO DAFINIL 96614358094 No Longer Active Mitch Urbina DO Active BACTRIM DS 800-160 MG TAB 1 tab by mouth twice daily TRIMETHOPRIM-SULFAMETHOXAZOLE 21791049993 No Longer Active Renan Hays MD Active FAMOTIDINE 20 MG TABS by mouth twice a day FAMOTI DINE 32707169541 Active Mitch Urbina DO Active ADULT ASPIRIN LOW STRENGTH 81 MG TBDP 1 by mouth every daily ASPIRIN 71704940427 Active Mitch W Carlitos DO Active METOPROLOL TARTRATE 50 MG TABS 1 by mouth twice daily METOPROLOL TARTRATE 21955707002 Active Curly Coker MD Active BACTRIM DS 800-160 MG TAB 1 tab by mouth twice daily 2 BACTRIM DS 800-160 MG TAB TRIMETHOPRIM-SULFAMETHOXAZOLE Inac tive PROVIGIL 100 MG TABS Take one by mouth daily 4 PROVIGIL 100 MG TABS 149885 MODAFINIL Inactive FUROSEMIDE 40 MG TABS 1 by mouth daily FU ROSEMIDE 40 MG TABS 075435 FUROSEMIDE Inactive KLOR-CON 20 MEQ PACK Take one by mouth daily 8 KLOR-CON 20 MEQ PACK 904012 POTASSIUM CHLORIDE Inactive LISINOPRIL 5 MG TABS 1 by mouth every day LISINOPRIL 5 MG TABS 133613 LISINOPRIL Inactive COLCRYS 0.6 MG TABS 1 po q 6 hours prn gout pain 03/02 COLCRYS 0.6 MG TABS 919697 COLCHICINE Inactive JANUVIA 100 MG TABS 1/2 by mouth every day JANUVI A 100 MG TABS SITAGLIPTIN PHOSPHATE Inactive SIMVASTATIN 20 MG TABS 1 tab daily at bedtime SIMVASTATIN 20 MG TABS 715429 SIMVASTATIN Inactive COUMADIN 6 MG TABS 1 by mouth every other day COUMADIN 6 MG TABS 068331 WARFARIN SODIUM Inactive COUMADIN 5 MG TABS 1 by mouth every other day COUMADIN 5 MG TABS 105216 WARFARIN SODIUM Inactive LISINOPRIL 20 MG TABS 1 tab po at HS KOKI NOPRIL 20 MG TABS 155580 LISINOPRIL Inactive LISINOPRIL-HYDROCHLOROTHIAZIDE 20-12.5 MG TABS 1 tab by mouth da rocky LISINOPRIL-HYDROCHLOROTHIAZIDE 20-12.5 MG TABS 298419 LISINOPRIL-HYDROCHLOROTHIAZIDE Inactive POLYTRIM 23847-4.1 UNIT/ML-% SOLN 1 drop in affected e ye every 3 hours while awake x 7 days POLYTRIM 87595-6.1 UNIT/ML-% SOLN 27733 7 POLYMYXIN B-TRIMETHOPRIM Inactive COUMADIN 4 MG TABS 1 tablet daily COUMADIN 4 MG TABS 010025 WARFARIN SODIUM Inactive CLONIDINE HCL 0.1 MG TABS 1 po bid 7 days, then 1/2 tab po b id 7 days CLONIDINE HCL 0.1 MG TABS 136263 CLONIDINE HCL I nactive ALLOPURINOL 300 MG TABS Take 1 tablet by mouth daily 2 ALLOPURINOL 300 MG TABS 774926 ALLOPURINOL Inactive MECLIZINE HCL 25 MG TAB 1 po tid 3 days, then 1/2 tab tid 3 days MECLIZINE HCL 25 MG TAB 067381 MECLIZINE HCL Inactive LOVENOX 100 MG/ML SC SOLN One injection twice a day 09/15/15 LOVENOX 100 MG/ML SC SOLN 549331 ENOXAPARIN SODIUM Inactive Vital Signs Date Name [...] Ag - Chemistry sodium, serum 141 mmol/L 417-896 4119/07/06 potassium, serum 4.4 mmol/L 3.5-5.2 chloride, serum [...] Panel - Chemistry sodium, serum 137 mmol/L 715-875 8858/11/14 potassium, serum 4.4 mmol/L 3.5-5.2 chloride, serum [...] 8.0 % 4.3-6.0 cholesterol, serum 130 mg/dL 793-834 5418/11/14 triglyceride, serum, fasting 288 mg/dL 30-200 HDL cholesterol, serum 33 mg/dL 32-96 LDL cholesterol, serum 39 mg/dL 0-130 Lab Report: Comp. Metabolic Panel, HGBA1 C, Lipid Panel, Prothrombin Time - Chemistry sodium, serum 136 mmol/L 084-751 4921/12/02 potassium, serum 4.4 mmol/L 3.5-5.2 chloride, serum [...] 7.6 % 4.3-6.0 cholesterol, serum 117 mg/dL 118-319 7846/12/02 triglyceride, serum, fasting 226 mg/dL 30-200 HDL [...] 7.0 % 4.3-6.0 cholesterol, serum 120 mg/dL 259-070 6125/07/06 triglyceride, serum, fasting 186 mg/dL 30-200 HDL [...] 1.0-3.5 Encounters Code Encounter Date Provider Facility CPT-53418 Level 3 Est. Patient 09:37:15 CDT Mitch luis [facility] CPT-82218 Level 3 Est. Patient 17:01:00 CFD ENGINEER Mitch Ambrose L janelle [facility] CPT-43273 Level 3 Est. Patient 13:53:19 CFD ENGINEER Mitch Ambrose L janelle [facility] CPT-97698 Level 3 Est. Patient 19:19:37 CFD ENGINEER Mitch W L janelle [facility] CPT-38801 Level 3 Est. Patient 13:25:53 CFD ENGINEER Tavo toure MD [facility]-61315 Level 3 Est. Patient 18:17:28 CDT Mitch W L janelle [facility] CPT-63748 Level 3 Est. Patient 15:22:57 CDT Mitch W L janelle [facility] CPT-05717 Level 3 Est. Patient 18:21:50 CDT Mitch W L janelle [facility] CPT-32377 Level 3 Est. Patient 18:20:38 CDT Mitch W L ee [facility]-64917 Level 3 Est. Patient 15:37:55 CDT Mitch W L janelle [facility] CPT-97819 Level 2 Est. Patient 15:54:44 CDT Carmine benton MD [facility]-98799 Level 3 Est. Patient 21:46:01 CFD ENGINEER Mitch W L janelle [facility] CPT-84189 Level 3 Est. Patient 22:15:50 CDT Mitch W L ee [facility] CPT-29979 Level 3 Est. Patient 10:48:15 CDT Mitch W L ee [facility] CPT-50171 Level 3 Est. Patient 23:20:57 CDT Tavo toure MD [facility] CPT-77317 Level 3 Est. Patient 16:26:13 CDT Mitch luis DO [facility] Procedures Code Procedure Name Date Entry Date Standard Desc ription CPT-51710 No Charge Offi Visit 21:36:07 CDT 1 CPT-14070 Venipuncture Draw Fee 10:13:28 CFD ENGINEER CPT-05727 Venipuncture Draw Fee 08:31:11 CDT CPT-37335 Aspir/Inject Med Joint 18:17:28 CDT CPT-23684 Venipuncture Draw Fee 10:13:30 CDT CPT-01138 Venipuncture Draw Fee 08:31:43 CFD ENGINEER CPT-JTINJ Joint Injection 18:34:50 CDT CPT-53700 Knee 3V 12:25:09 CDT CPT-94768 Venipuncture Draw Fee 12:15:57 CDT CPT-060 Medical Surveillance Exam 21:31:43 CDT 2011 CPT-56156 Venipuncture Draw Fee 08:32:05 CFD ENGINEER CPT-OV Office Visit 18:19:06 CDT
--- OUTSIDE RECORDS SUMMARY | 2020-01-18 12:41 | XMS REPORT | Clinical Summary ---
Author Author Admin, Mitch Leon Organization [facility] Address Unknown Phone Unavailable Allergies, Adverse [...] Coronary atherosclerosis of unspecified type of vessel, [place] or graft EDEMA 782.3 Active Mitch Urbina [...] 1 tablet by mouth daily AMLODIPINE BESYLATE 98984602186 Active Mitch Urbina DO Active MECLIZINE HCL 25 MG TAB 1 po tid 3 days, then 1/2 tab tid 3 days MECLIZINE HCL 26849600225 No Longer Active Corey SEGURA Active ALLOPURINOL 300 MG TABS Take 1 tablet by mouth daily 2 ALLOPURINOL 48514470166 No Longer Active Corey SEGURA Activ e CLONIDINE HCL 0.1 MG TABS 1 po bid 7 days, then 1/2 tab po b id 7 days CLONIDINE HCL 05842765346 No Longer Active Corey SEGURA Active COUMADIN 5 MG TABS 1 tab PO daily WARFARIN SODIUM 82003923736 Active Mitch Urbina DO Active COUMADIN 4 MG TABS 1 tablet daily WARFARIN SODI UM 64836311059 No Longer Active Corey SEGURA Active POLYTRIM 87077-0.1 UNIT/ML-% SOLN 1 drop in affected e ye every 3 hours while awake x 7 days POLYMYXIN B-TRIMETHOPRIM 15808725060 N o Longer Active Corey SEGURA Active LOSARTAN POTASSIUM-HCTZ 100-12.5 MG TABS 1 by mouth da rocky for high blood pressure LOSARTAN POTASSIUM-HCTZ 55570165456 Active Stephy Urbina DO Active LISINOPRIL-HYDROCHLOROTHIAZIDE 20-12.5 MG TABS 1 tab by mouth da rocky LISINOPRIL-HYDROCHLOROTHIAZIDE 90917873248 No Longer Active Mitch luis DO Active LISINOPRIL 20 MG TABS 1 tab po at HS LISINOPRIL 38564803329 No Longer Active Mitch Urbina DO Active COUMADIN 5 MG TABS 1 by mouth every other day WARFARIN SODIUM 52076327057 No Longer Active Mitch Urbina DO Active COUMADIN 6 MG TABS 1 by mouth every other day WARFARIN SODIUM 78408263108 No Longer Active Mitch Urbina DO Active COLCRYS 0.6 MG TABS 1 tab qid prn gout COLCHICINE 93043106724 Active Mitch Urbina DO Active SIMVASTATIN 40 MG TABS 1 tab daily at bedtime S IMVASTATIN 87463795882 Active Mitch Urbina DO Active SIMVASTATIN 20 MG TABS 1 tab daily at bedtime S IMVASTATIN 57019902919 No Longer Active Mitch Urbina DO Active LOVENOX 100 MG/ML SC SOLN One injection twice a day 09/15/15 ENOXAPARIN SODIUM 95110198422 No Longer Active Carmine Navarrete ctive JANUVIA 50 MG TABS Take one by mouth daily DIEGO GLIPTIN PHOSPHATE 18270525125 Active Mitch Urbina DO Active JANUVIA 100 MG TABS 1/2 by mouth every day DIEGO GLIPTIN PHOSPHATE 52935343044 No Longer Active Bijal Philipp RN Active METFORMIN HCL 500 MG TABS 2 by mouth twice daily METFORMIN HCL 82724315928 Active Mitch Urbina DO Active GLIMEPIRIDE 4 MG TABS 1 tab po bid GLIMEPIRIDE 221978 49553 Active Mitch Urbina DO Active COLCRYS 0.6 MG TABS 1 po q 6 hours prn gout pain 03/02 COLCHICINE 54301757434 No Longer Active Camila Reese Active LISINOPRIL 5 MG TABS 1 by mouth every day LISIN OPRIL 53857155408 No Longer Active Nguyenmolly Perez Active KLOR-CON 20 MEQ PACK Take one by mouth daily 8 POTASSIUM CHLORIDE 63003368500 No Longer Active Nguyen Perez Active FUROSEMIDE 40 MG TABS 1 by mouth daily FUROSEMI DE 72251338349 No Longer Active Nguyen Perez Active PROVIGIL 200 MG TABS 1/2 tab po q day MODAFINIL 04171 405457 Active Mitch Urbina DO Active PROVIGIL 100 MG TABS Take one by mouth daily MO DAFINIL 92454574945 No Longer Active Mitch Urbina DO Active BACTRIM DS 800-160 MG TAB 1 tab by mouth twice daily 2 TRIMETHOPRIM-SULFAMETHOXAZOLE 95118546776 No Longer Active Renan Hays MD Active FAMOTIDINE 20 MG TABS by mouth twice a day FAMOTI DINE 74959932640 Active Mitch Urbina DO Active ADULT ASPIRIN LOW STRENGTH 81 MG TBDP 1 by mouth every daily ASPIRIN 34268492923 Active Mitch Urbina DO Active METOPROLOL TARTRATE 50 MG TABS 1 by mouth twice daily METOPROLOL TARTRATE 39482020797 Active Mitch W Carlitos DO Active BACTRIM DS 800-160 MG TAB 1 tab by mouth twice daily 2 BACTRIM DS 800-160 MG TAB TRIMETHOPRIM-SULFAMETHOXAZOLE Inac tive PROVIGIL 100 MG TABS Take one by mouth daily 4 PROVIGIL 100 MG TABS 731790 MODAFINIL Inactive FUROSEMIDE 40 MG TABS 1 by mouth daily FU ROSEMIDE 40 MG TABS 205470 FUROSEMIDE Inactive KLOR-CON 20 MEQ PACK Take one by mouth daily 8 KLOR-CON 20 MEQ PACK 914528 POTASSIUM CHLORIDE Inactive LISINOPRIL 5 MG TABS 1 by mouth every day LISINOPRIL 5 MG TABS 962322 LISINOPRIL Inactive COLCRYS 0.6 MG TABS 1 po q 6 hours prn gout pain 03/02 COLCRYS 0.6 MG TABS COLCHICINE Inactive JANUVIA 100 MG TABS 1/2 by mouth every day JANUVI A 100 MG TABS SITAGLIPTIN PHOSPHATE Inactive SIMVASTATIN 20 MG TABS 1 tab daily at bedtime SIMVASTATIN 20 MG TABS 895565 SIMVASTATIN Inactive COUMADIN 6 MG TABS 1 by mouth every other day COUMADIN 6 MG TABS 955000 WARFARIN SODIUM Inactive COUMADIN 5 MG TABS 1 by mouth every other day COUMADIN 5 MG TABS 864730 WARFARIN SODIUM Inactive LISINOPRIL 20 MG TABS 1 tab po at HS KOKI NOPRIL 20 MG TABS 042350 LISINOPRIL Inactive LISINOPRIL-HYDROCHLOROTHIAZIDE 20-12.5 MG TABS 1 tab by mouth da rocky LISINOPRIL-HYDROCHLOROTHIAZIDE 20-12.5 MG TABS 312210 LISINOPRIL-HYDROCHLOROTHIAZIDE Inactive POLYTRIM 02448-1.1 UNIT/ML-% SOLN 1 drop in affected e ye every 3 hours while awake x 7 days POLYTRIM 22771-0.1 UNIT/ML-% SOLN 40092 7 POLYMYXIN B-TRIMETHOPRIM Inactive COUMADIN 4 MG TABS 1 tablet daily COUMADIN 4 MG TABS 423864 WARFARIN SODIUM Inactive CLONIDINE HCL 0.1 MG TABS 1 po bid 7 days, then 1/2 tab po b id 7 days CLONIDINE HCL 0.1 MG TABS 915332 CLONIDINE HCL I nactive ALLOPURINOL 300 MG TABS Take 1 tablet by mouth daily 2 ALLOPURINOL 300 MG TABS 067749 ALLOPURINOL Inactive MECLIZINE HCL 25 MG TAB 1 po tid 3 days, then 1/2 tab tid 3 days MECLIZINE HCL 25 MG TAB 063119 MECLIZINE HCL Inactive LOVENOX 100 MG/ML SC SOLN One injection twice a day 09/15/15 LOVENOX 100 MG/ML SC SOLN 644510 ENOXAPARIN SODIUM Inactive Vital Signs Date Name [...] 10.3 mg/dL 2.6-7.2 sodium, serum 136 mmol/L 390-040 7863/07/25 potassium, serum 4.6 mmol/L 3.5-5.2 chloride, serum [...] Panel - Chemistry sodium, serum 137 mmol/L 160-979 5455/11/14 potassium, serum 4.4 mmol/L 3.5-5.2 chloride, serum [...] 8.0 % 4.3-6.0 cholesterol, serum 130 mg/dL 950-909 5538/11/14 triglyceride, serum, fasting 288 mg/dL 30-200 HDL cholesterol, serum 33 mg/dL 32-96 LDL cholesterol, serum 39 mg/dL 0-130 Lab Report: Comp. Metabolic Panel, HGBA1 C, Lipid Panel, Prothrombin Time - Chemistry sodium, serum 136 mmol/L 063-380 8233/12/02 potassium, serum 4.4 mmol/L 3.5-5.2 chloride, serum [...] 7.6 % 4.3-6.0 cholesterol, serum 117 mg/dL 733-050 1119/12/02 triglyceride, serum, fasting 226 mg/dL 30-200 HDL cholesterol, serum 30 mg/dL 32-96 LDL cholesterol, serum 42 mg/dL 0-130 Lab Report: Comp. Metabolic Panel, HGBA1 C, Lipid Panel, Prothrombin Time - Coagulation prothrombin time (patient) 16.3 SECS s 11.1-13.4 international normalized ratio (INR) 1.7 1.0-3.5 Lab Report: Prothrombin Time - Coagulati on international normalized ratio (INR) 1.9 1.0-3.5 prothrombin time (patient) 16.8 SECS s 11.1-13.4 international normalized ratio (INR) 1.7 1.0-3.5 prothrombin time (patient) 16.0 SECS s 11.1-13.4 prothrombin time (patient) 18.4 SECS s 11.1-13.4 international normalized ratio (INR) 2.2 1.0-3.5 prothrombin time (patient) 18.4 SECS s 11.1-13.4 international normalized ratio (INR) 2.2 1.0-3.5 prothrombin time (patient) 19.9 SECS s 11.1-13.4 international normalized ratio (INR) 2.6 1.0-3.5 Encounters Code Encounter Date Provider Facility CPT-52516 Level 3 Est. Patient 17:01:00 [employer] Mitch W L janelle DO [facility] CPT-76573 Level 3 Est. Patient 13:53:19 [employer] SAL[employer]ATE Mitch W L ee [facility] CPT-96245 Level 3 Est. Patient 19:19:37 [employer]ATE Mitch W L janelle [facility] CPT-69586 Level 3 Est. Patient 13:25:53 [employer] SAL[employer]OC[employer]ATE Tavo toure MD [facility] CPT-43350 Level 3 Est. Patient 18:17:28 CDT Mitch W L janelle [facility] CPT-20587 Level 3 Est. Patient 15:22:57 CDT Mitch W L janelle [facility] CPT-53196 Level 3 Est. Patient 18:21:50 CDT Mitch W L ee [facility] CPT-38398 Level 3 Est. Patient 18:20:38 CDT Mitch W L janelle [facility] CPT-33809 Level 3 Est. Patient 15:37:55 CDT Mitch W L ee [facility] CPT-46293 Level 2 Est. Patient 15:54:44 CDT Carmine benton MD [facility]-14789 Level 3 Est. Patient 21:46:01 [employer] Mitch W L ee [facility] CPT-01921 Level 3 Est. Patient 22:15:50 CDT Mitch W L ee [facility] CPT-48436 Level 3 Est. Patient 10:48:15 CDT Mitch luis [facility] CPT-39581 Level 3 Est. Patient 23:20:57 CDT Tavo toure MD [facility] CPT-77609 Level 3 Est. Patient 16:26:13 CDT Mitch luis [facility] Procedures Code Procedure Name Date Entry Date Standard Desc ription CPT-44140 Venipuncture Draw Fee 10:13:28 [employer] CPT-24825 Venipuncture Draw Fee 08:31:11 CDT CPT-70440 Aspir/Inject Med Joint 18:17:28 CDT CPT-70433 Venipuncture Draw Fee 10:13:30 CDT CPT-02114 Venipuncture Draw Fee 08:31:43 [employer] CPT-JTINJ Joint Injection 18:34:50 CDT CPT-76998 Knee 3V 12:25:09 CDT CPT-91976 Venipuncture Draw Fee 12:15:57 CDT CPT-060 Medical Surveillance Exam 21:31:43 CDT 2011 CPT-94927 Venipuncture Draw Fee 08:32:05 [employer] CPT-OV Office Visit 18:19:06 CDT
--- OUTSIDE RECORDS SUMMARY | 2020-01-18 12:41 | XMS REPORT | Clinical Summary ---
Author Author Admin, Mitch Leon Organization [facility] Address Unknown Phone Unavailable Allergies, Adverse [...] Coronary atherosclerosis of unspecified type of vessel, [place] or graft EDEMA 782.3 Resolved Mitch Urbina [...] tab to equal 7mg daily WARFARIN SODIUM 71471008751 Active Kathie Juan RPT,R MA Active COLCRYS 0.6 MG TABS 1 tab qid prn gout COLCHICINE 91956950931 Active Kathie Juan RPT,RMA Active INVOKANA 100 MG ORAL TABS 1 tablet orally daily CANAGLIFLOZIN 80008239700 Active Kathie Juan RPT,RMA Active MINOXIDIL 2.5 MG TABS 1 tablet daily for high blood pressure 10/23 MINOXIDIL 47478118542 Active Mitch Arnol Carlitos VELASQUEZ Active AMLODIPINE BESYLATE 5 MG TABS 1 tablet by mouth daily AMLODIPINE BESYLATE 52572970989 Active Domi Rivera MA Active MECLIZINE HCL 25 MG TAB 1 po tid 3 days, then 1/2 tab tid 3 days MECLIZINE HCL 50009009101 No Longer Active Corey SEGURA Active ALLOPURINOL 300 MG TABS Take 1 tablet by mouth daily 2 ALLOPURINOL 61398361372 No Longer Active Corey SEGURA Activ e CLONIDINE HCL 0.1 MG TABS 1 po bid 7 days, then 1/2 tab po b id 7 days CLONIDINE HCL 17397086244 No Longer Active Corey SEGURA Active COUMADIN 5 MG TABS 1 tab PO daily WARFARIN SODIUM 26720131550 Active Domi Rivera MA Active COUMADIN 4 MG TABS 1 tablet daily WARFARIN SODI UM 19149704873 No Longer Active Corey SEGURA Active POLYTRIM 28009-8.1 UNIT/ML-% SOLN 1 drop in affected e ye every 3 hours while awake x 7 days POLYMYXIN B-TRIMETHOPRIM 25136335262 N o Longer Active Corey SEGURA Active LOS[place]AN POTASSIUM-HCTZ 100-12.5 MG TABS 1 by mouth [place] for high blood pressure [place]AN POTASSIUM-HCTZ 40357350628 Active Domi Rivera MA Active LISINOPRIL-HYDROCHLOROTHIAZIDE 20-12.5 MG TABS 1 tab by mouth da rocky LISINOPRIL-HYDROCHLOROTHIAZIDE 89006117459 No Longer Active Mitch luis DO Active LISINOPRIL 20 MG TABS 1 tab po at HS LISINOPRIL 49370353537 No Longer Active Mitch Urbina DO Active COUMADIN 5 MG TABS 1 by mouth every other day WARFARIN SODIUM 77505867285 No Longer Active Mitch Urbina DO Active COUMADIN 6 MG TABS 1 by mouth every other day WARFARIN SODIUM 29626548542 No Longer Active Mitch Urbina DO Active SIMVASTATIN 40 MG TABS 1 tab daily at bedtime S IMVASTATIN 43402456076 Active Domi Rivera MA Active SIMVASTATIN 20 MG TABS 1 tab daily at bedtime S IMVASTATIN 84097969219 No Longer Active Mitch Urbina DO Active LOVENOX 100 MG/ML SC SOLN One injection twice a day 09/15/15 ENOXAPARIN SODIUM 42151290588 No Longer Active Carmine Yusuf MD A ctive JANUVIA 50 MG TABS Take one by mouth daily DIEGO GLIPTIN PHOSPHATE 59034800540 Active Tavo Hilton MD Active JANUVIA 100 MG TABS 1/2 by mouth every day DIEGO GLIPTIN PHOSPHATE 43333177682 No Longer Active Bijal Segal RN Active METFORMIN HCL 500 MG TABS 2 by mouth twice daily METFORMIN HCL 02401894874 Active Mitch Urbina DO Active GLIMEPIRIDE 4 MG TABS 1 tab po bid GLIMEPIRIDE 401015 49529 Active Mitch Urbina DO Active COLCRYS 0.6 MG TABS 1 po q 6 hours prn gout pain 03/02 COLCHICINE 73478652685 No Longer Active Camila Reese Active LISINOPRIL 5 MG TABS 1 by mouth every day LISIN OPRIL 07816073862 No Longer Active Nguyen Perez Active KLOR-CON 20 MEQ PACK Take one by mouth daily 8 POTASSIUM CHLORIDE 26164204941 No Longer Active Nguyen Perez Active FUROSEMIDE 40 MG TABS 1 by mouth daily FUROSEMI DE 25928001423 No Longer Active Nguyenmolly Perez Active PROVIGIL 200 MG TABS 1/2 tab po q day MODAFINIL 48868 002847 Active Curly Coker MD Active PROVIGIL 100 MG TABS Take one by mouth daily MO DAFINIL 95841495278 No Longer Active Mitch Urbina DO Active BACTRIM DS 800-160 MG TAB 1 tab by mouth twice daily 2 TRIMETHOPRIM-SULFAMETHOXAZOLE 33278822394 No Longer Active Renan Hays MD Active FAMOTIDINE 20 MG TABS by mouth twice a day FAMOTI DINE 69942618904 Active Mitch Urbina DO Active ADULT ASPIRIN LOW STRENGTH 81 MG TBDP 1 by mouth every daily ASPIRIN 52231999700 Active Mitch Urbina DO Active METOPROLOL TARTRATE 50 MG TABS 1 by mouth twice daily METOPROLOL TARTRATE 79548621428 Active Domi Rivera MA Active BACTRIM DS 800-160 MG TAB 1 tab by mouth twice daily 2 BACTRIM DS 800-160 MG TAB 618490 TRIMETHOPRIM-SULFAMETHOXAZOLE Inac tive PROVIGIL 100 MG TABS Take one by mouth daily 4 PROVIGIL 100 MG TABS 093267 MODAFINIL Inactive FUROSEMIDE 40 MG TABS 1 by mouth daily FU ROSEMIDE 40 MG TABS 218937 FUROSEMIDE Inactive KLOR-CON 20 MEQ PACK Take one by mouth daily 8 KLOR-CON 20 MEQ PACK 478020 POTASSIUM CHLORIDE Inactive LISINOPRIL 5 MG TABS 1 by mouth every day LISINOPRIL 5 MG TABS 876273 LISINOPRIL Inactive COLCRYS 0.6 MG TABS 1 po q 6 hours prn gout pain 03/02 COLCRYS 0.6 MG TABS 414554 COLCHICINE Inactive JANUVIA 100 MG TABS 1/2 by mouth every day JANUVI A 100 MG TABS SITAGLIPTIN PHOSPHATE Inactive SIMVASTATIN 20 MG TABS 1 tab daily at bedtime SIMVASTATIN 20 MG TABS 224059 SIMVASTATIN Inactive COUMADIN 6 MG TABS 1 by mouth every other day COUMADIN 6 MG TABS 371576 WARFARIN SODIUM Inactive COUMADIN 5 MG TABS 1 by mouth every other day COUMADIN 5 MG TABS 243115 WARFARIN SODIUM Inactive LISINOPRIL 20 MG TABS 1 tab po at HS KOKI NOPRIL 20 MG TABS 233665 LISINOPRIL Inactive LISINOPRIL-HYDROCHLOROTHIAZIDE 20-12.5 MG TABS 1 tab by mouth da rocky LISINOPRIL-HYDROCHLOROTHIAZIDE 20-12.5 MG TABS 923493 LISINOPRIL-HYDROCHLOROTHIAZIDE Inactive POLYTRIM 94502-5.1 UNIT/ML-% SOLN 1 drop in affected e ye every 3 hours while awake x 7 days POLYTRIM 97424-2.1 UNIT/ML-% SOLN 71044 7 POLYMYXIN B-TRIMETHOPRIM Inactive COUMADIN 4 MG TABS 1 tablet daily COUMADIN 4 MG TABS 505565 WARFARIN SODIUM Inactive CLONIDINE HCL 0.1 MG TABS 1 po bid 7 days, then 1/2 tab po b id 7 days CLONIDINE HCL 0.1 MG TABS 998974 CLONIDINE HCL I nactive ALLOPURINOL 300 MG TABS Take 1 tablet by mouth daily 2 ALLOPURINOL 300 MG TABS 204548 ALLOPURINOL Inactive MECLIZINE HCL 25 MG TAB 1 po tid 3 days, then 1/2 tab tid 3 days MECLIZINE HCL 25 MG TAB 667748 MECLIZINE HCL Inactive LOVENOX 100 MG/ML SC SOLN One injection twice a day 20 09/15/15 LOVENOX 100 MG/ML SC SOLN 432398 ENOXAPARIN SODIUM Inactive Vital Signs Date Name [...] - Chem istry sodium, serum 136 mmol/L 205-484 2588/01/14 carbon dioxide, venous blood 25.4 mmol/L 21.0-32 [...] CBC - Chemistry cholesterol, serum 136 mg/dL 195-306 2354/08/09 triglyceride, serum, fasting 187 mg/dL 30-200 HDL [...] 1.0-3.5 Encounters Code Encounter Date Provider Facility CPT-30273 Level 3 Est. Patient 09:34:30 [employer] Mitch luis [facility] CPT-88142 Level 3 Est. Patient 09:37:15 CDT Mitch luis [facility] CPT-28212 Level 3 Est. Patient 17:01:00 [employer] Mitch W L ee [facility] CPT-84428 Level 3 Est. Patient 13:53:19 [employer] Mitch luis [facility] CPT-61009 Level 3 Est. Patient 19:19:37 [employer] Mitch luis [facility] CPT-37665 Level 3 Est. Patient 13:25:53 [employer] Tavo toure MD [facility] CPT-50149 Level 3 Est. Patient 18:17:28 CDT Mitch luis [facility] CPT-15168 Level 3 Est. Patient 15:22:57 CDT Mitch luis [facility] CPT-61607 Level 3 Est. Patient 18:21:50 CDT Mitch luis [facility] CPT-90282 Level 3 Est. Patient 18:20:38 CDT Mitch luis [facility] CPT-33015 Level 3 Est. Patient 15:37:55 CDT Mitch luis [facility] CPT-17905 Level 2 Est. Patient 15:54:44 CDT Carmine benton MD [facility] CPT-00451 Level 3 Est. Patient 21:46:01 [employer] Mitch luis [facility] CPT-20580 Level 3 Est. Patient 22:15:50 CDT Mitch luis [facility] CPT-11488 Level 3 Est. Patient 10:48:15 CDT Mitch lusi [facility] CPT-13763 Level 3 Est. Patient 23:20:57 CDT Tavo toure MD [facility] CPT-83283 Level 3 Est. Patient 16:26:13 CDT Mitch Arnol luis [facility] Procedures Code Procedure Name Date Entry Date Standard Desc ription CPT-79161 Hemoccult IFOBT - LAB USE ONLY 10:27:22 CDT CPT-39310 Venipuncture Draw Fee 08:27:08 CDT CPT-72980 Liver Profile - LAB USE ONLY 08:27:07 CDT 2 CPT-18429 Microalbumin - LAB USE ONLY 08:27:07 CDT 20 25/05/09 CPT-07216 PT/INR - LAB USE ONLY 08:27:07 CDT CPT-29809 HGBA1C - LAB USE ONLY 08:27:07 CDT CPT-55777 CBC - LAB USE ONLY 08:27:07 CDT CPT-51824 Venipuncture Draw Fee 11:09:14 CDT CPT-77580 Venipuncture Draw Fee 08:32:21 [employer] CPT-51730 Venipuncture Draw Fee 09:38:56 [employer] CPT-71891 No Charge Offi Visit 21:36:07 CDT 1 CPT-12078 Venipuncture Draw Fee 10:13:28 [employer] CPT-75549 Venipuncture Draw Fee 08:31:11 CDT CPT-00644 Aspir/Inject Med Joint 18:17:28 CDT CPT-43619 Venipuncture Draw Fee 10:13:30 CDT CPT-58327 Venipuncture Draw Fee 08:31:43 [employer] CPT-JTINJ Joint Injection 18:34:50 CDT CPT-74111 Knee 3V 12:25:09 CDT CPT-95181 Venipuncture Draw Fee 12:15:57 CDT CPT-060 Medical Surveillance Exam 21:31:43 CDT 2011 CPT-77166 Venipuncture Draw Fee 08:32:05 [employer] CPT-OV Office Visit 18:19:06 CDT
--- OUTSIDE RECORDS SUMMARY | 2020-01-18 12:41 | XMS REPORT | Clinical Summary ---
[...] Coronary atherosclerosis of unspecified type of vessel, habematolel or graft EDEMA 782.3 Active Mitch Urbina [...] 1 tablet by mouth daily AMLODIPINE BESYLATE 74606335813 Active Mitch Urbina DO Active MECLIZINE HCL 25 MG TAB 1 po tid 3 days, then 1/2 tab tid 3 days MECLIZINE HCL 23774244270 No Longer Active Corey SEGURA Active ALLOPURINOL 300 MG TABS Take 1 tablet by mouth daily 2 ALLOPURINOL 97361190625 No Longer Active Corey SEGURA Activ e CLONIDINE HCL 0.1 MG TABS 1 po bid 7 days, then 1/2 tab po b id 7 days CLONIDINE HCL 32801940651 No Longer Active Corey SEGURA Active COUMADIN 5 MG TABS 1 tab PO daily WARFARIN SODIUM 65114164624 Active Mitch Urbina DO Active COUMADIN 4 MG TABS 1 tablet daily WARFARIN SODI UM 04779406719 No Longer Active Corey SEGURA Active POLYTRIM 24079-1.1 UNIT/ML-% SOLN 1 drop in affected e ye every 3 hours while awake x 7 days POLYMYXIN B-TRIMETHOPRIM 43991380489 N o Longer Active Corey SEGURA Active LOSARTAN POTASSIUM-HCTZ 100-12.5 MG TABS 1 by mouth da rocky for high blood pressure LOSARTAN POTASSIUM-HCTZ 20271588402 Active Stephy Urbina DO Active LISINOPRIL-HYDROCHLOROTHIAZIDE 20-12.5 MG TABS 1 tab by mouth da rocky LISINOPRIL-HYDROCHLOROTHIAZIDE 91793812457 No Longer Active Mitch luis DO Active LISINOPRIL 20 MG TABS 1 tab po at HS LISINOPRIL 07449974075 No Longer Active Mitch Urbina DO Active COUMADIN 5 MG TABS 1 by mouth every other day WARFARIN SODIUM 37981519070 No Longer Active Mitch Urbina DO Active COUMADIN 6 MG TABS 1 by mouth every other day WARFARIN SODIUM 45287496451 No Longer Active Mitch Urbina DO Active COLCRYS 0.6 MG TABS 1 tab qid prn gout COLCHICINE 55692288924 Active Mitch Urbina DO Active SIMVASTATIN 40 MG TABS 1 tab daily at bedtime S IMVASTATIN 13629874938 Active Mitch Urbina DO Active SIMVASTATIN 20 MG TABS 1 tab daily at bedtime S IMVASTATIN 67743782058 No Longer Active Mitch Urbina DO Active LOVENOX 100 MG/ML SC SOLN One injection twice a day 09/15/15 ENOXAPARIN SODIUM 94927520529 No Longer Active Carmine Navarrete ctive JANUVIA 50 MG TABS Take one by mouth daily DIEGO GLIPTIN PHOSPHATE 59144745552 Active Mitch Urbina DO Active JANUVIA 100 MG TABS 1/2 by mouth every day DIEGO GLIPTIN PHOSPHATE 42695048684 No Longer Active Bijal Philipp RN Active METFORMIN HCL 500 MG TABS 2 by mouth twice daily METFORMIN HCL 24654398852 Active Mitch Urbina DO Active GLIMEPIRIDE 4 MG TABS 1 tab po bid GLIMEPIRIDE 277857 62956 Active Mitch Urbina DO Active COLCRYS 0.6 MG TABS 1 po q 6 hours prn gout pain 03/02 COLCHICINE 14606262724 No Longer Active Camila Reese Active LISINOPRIL 5 MG TABS 1 by mouth every day LISIN OPRIL 76288905822 No Longer Active Nguyenmolly Perez Active KLOR-CON 20 MEQ PACK Take one by mouth daily 8 POTASSIUM CHLORIDE 79311319792 No Longer Active Nguyen Perez Active FUROSEMIDE 40 MG TABS 1 by mouth daily FUROSEMI DE 77353409598 No Longer Active Nguyen Perez Active PROVIGIL 200 MG TABS 1/2 tab po q day MODAFINIL 84519 493154 Active Mitch Urbina DO Active PROVIGIL 100 MG TABS Take one by mouth daily MO DAFINIL 76021925485 No Longer Active Mitch Urbina DO Active BACTRIM DS 800-160 MG TAB 1 tab by mouth twice daily 2 TRIMETHOPRIM-SULFAMETHOXAZOLE 76481292927 No Longer Active Renan Hays MD Active FAMOTIDINE 20 MG TABS by mouth twice a day FAMOTI DINE 60312782820 Active Mitch Urbina DO Active ADULT ASPIRIN LOW STRENGTH 81 MG TBDP 1 by mouth every daily ASPIRIN 62122258910 Active Mitch Urbina DO Active METOPROLOL TARTRATE 50 MG TABS 1 by mouth twice daily METOPROLOL TARTRATE 49866657498 Active Mitch W [place] DO Active BACTRIM DS 800-160 MG TAB 1 tab by mouth twice daily 2 BACTRIM DS 800-160 MG TAB TRIMETHOPRIM-SULFAMETHOXAZOLE Inac tive PROVIGIL 100 MG TABS Take one by mouth daily 4 PROVIGIL 100 MG TABS 454838 MODAFINIL Inactive FUROSEMIDE 40 MG TABS 1 by mouth daily FU ROSEMIDE 40 MG TABS 983607 FUROSEMIDE Inactive KLOR-CON 20 MEQ PACK Take one by mouth daily 8 KLOR-CON 20 MEQ PACK 833567 POTASSIUM CHLORIDE Inactive LISINOPRIL 5 MG TABS 1 by mouth every day LISINOPRIL 5 MG TABS 926110 LISINOPRIL Inactive COLCRYS 0.6 MG TABS 1 po q 6 hours prn gout pain 03/02 COLCRYS 0.6 MG TABS COLCHICINE Inactive JANUVIA 100 MG TABS 1/2 by mouth every day JANUVI A 100 MG TABS SITAGLIPTIN PHOSPHATE Inactive SIMVASTATIN 20 MG TABS 1 tab daily at bedtime SIMVASTATIN 20 MG TABS 583077 SIMVASTATIN Inactive COUMADIN 6 MG TABS 1 by mouth every other day COUMADIN 6 MG TABS 323491 WARFARIN SODIUM Inactive COUMADIN 5 MG TABS 1 by mouth every other day COUMADIN 5 MG TABS 241719 WARFARIN SODIUM Inactive LISINOPRIL 20 MG TABS 1 tab po at HS KOKI NOPRIL 20 MG TABS 478311 LISINOPRIL Inactive LISINOPRIL-HYDROCHLOROTHIAZIDE 20-12.5 MG TABS 1 tab by mouth da rocky LISINOPRIL-HYDROCHLOROTHIAZIDE 20-12.5 MG TABS 997757 LISINOPRIL-HYDROCHLOROTHIAZIDE Inactive POLYTRIM 06571-2.1 UNIT/ML-% SOLN 1 drop in affected e ye every 3 hours while awake x 7 days POLYTRIM 95278-7.1 UNIT/ML-% SOLN 70275 7 POLYMYXIN B-TRIMETHOPRIM Inactive COUMADIN 4 MG TABS 1 tablet daily COUMADIN 4 MG TABS 563428 WARFARIN SODIUM Inactive CLONIDINE HCL 0.1 MG TABS 1 po bid 7 days, then 1/2 tab po b id 7 days CLONIDINE HCL 0.1 MG TABS 556812 CLONIDINE HCL I nactive ALLOPURINOL 300 MG TABS Take 1 tablet by mouth daily 2 ALLOPURINOL 300 MG TABS 360726 ALLOPURINOL Inactive MECLIZINE HCL 25 MG TAB 1 po tid 3 days, then 1/2 tab tid 3 days MECLIZINE HCL 25 MG TAB 216113 MECLIZINE HCL Inactive LOVENOX 100 MG/ML SC SOLN One injection twice a day 09/15/15 LOVENOX 100 MG/ML SC SOLN 765530 ENOXAPARIN SODIUM Inactive Vital Signs Date Name [...] 10.3 mg/dL 2.6-7.2 sodium, serum 136 mmol/L 191-223 6010/07/25 potassium, serum 4.6 mmol/L 3.5-5.2 chloride, serum [...] Panel, HGBA1C, MICROALBUMIN, Uric Acid - Hematology hemoglobin, blood 12.8 g/dL 13.5-17.5 hematocrit, blood 40.1 % 41.0-53.0 mean corpuscular volume, RBC 80 fL 80-97 mean corpuscular hemoglobin, RBC 25.6 pg 27. 0-31.2 mean corpuscular hemoglobin concentration, RBC 32.0 G/DL % 31.8-35.4 red blood cell distribution width 18.3 % 11 .6-14.8 platelet count 277 10^3/MM^3 10*3/mm3 559-881 3213/07/25 erythrocyte (RBC) count 5.02 10^6/MM^3 10*6/mm3 4.69-6.1 3 leukocyte count, blood 6.6 10^3/MM^3 10*3/mm3 4.6-10.2 Lab Report: CBC, Comp. Metabolic Panel, HGBA1C, MICROALBUMIN, Uric Acid - Lab microalbumin, urine 30 0-19 Lab Report: Comp. Metabolic Panel, HGBA1 C, Lipid Panel - Chemistry sodium, serum 137 mmol/L 460-158 5910/11/14 potassium, serum 4.4 mmol/L 3.5-5.2 chloride, serum [...] 8.0 % 4.3-6.0 cholesterol, serum 130 mg/dL 586-479 6227/11/14 triglyceride, serum, fasting 288 mg/dL 30-200 HDL cholesterol, serum 33 mg/dL 32-96 LDL cholesterol, serum 39 mg/dL 0-130 Lab Report: Comp. Metabolic Panel, HGBA1 C, Lipid Panel, Prothrombin Time - Chemistry sodium, serum 136 mmol/L 180-593 1132/12/02 potassium, serum 4.4 mmol/L 3.5-5.2 chloride, serum [...] 7.6 % 4.3-6.0 cholesterol, serum 117 mg/dL 151-435 1384/12/02 triglyceride, serum, fasting 226 mg/dL 30-200 HDL [...] (INR) 2.6 1.0-3.5 international normalized ratio (INR) 1.9 1.0-3.5 prothrombin time (patient) 16.8 SECS s 11.1-13.4 prothrombin time (patient) 18.4 SECS s 11.1-13.4 international normalized ratio (INR) 2.2 1.0-3.5 prothrombin time (patient) 16.0 SECS s 11.1-13.4 international normalized ratio (INR) 1.7 1.0-3.5 prothrombin time (patient) 18.4 SECS s 11.1-13.4 international normalized ratio (INR) 2.2 1.0-3.5 Encounters Code Encounter Date Provider Facility CPT-16384 Level 3 Est. Patient 17:01:00 DROP TESTER Mitch W L janelle [facility] CPT-75255 Level 3 Est. Patient 13:53:19 DROP TESTER Mitch Ambrose L ee [facility] CPT-92672 Level 3 Est. Patient 19:19:37 DROP TESTER Mitch W L ee [facility] CPT-16320 Level 3 Est. Patient 13:25:53 DROP TESTER Tavo toure MD [facility]-50541 Level 3 Est. Patient 18:17:28 CDT Mitch W L ee [facility] CPT-99313 Level 3 Est. Patient 15:22:57 CDT Mitch W L ee [facility] CPT-29121 Level 3 Est. Patient 18:21:50 CDT Mitch W L ee [facility]-40193 Level 3 Est. Patient 18:20:38 CDT Mitch W L janelle [facility] CPT-66800 Level 3 Est. Patient 15:37:55 CDT Imtch W L ee [facility] CPT-95077 Level 2 Est. Patient 15:54:44 CDT Carmine benton MD [facility]-85514 Level 3 Est. Patient 21:46:01 DROP TESTER Mitch W L ee [facility] CPT-47864 Level 3 Est. Patient 22:15:50 CDT Mitch W L janelle [facility] CPT-28059 Level 3 Est. Patient 10:48:15 CDT Mitch W L ee [facility] CPT-55626 Level 3 Est. Patient 23:20:57 CDT Tavo toure MD [facility] CPT-92381 Level 3 Est. Patient 16:26:13 CDT Mitch luis [facility] Procedures Code Procedure Name Date Entry Date Standard Desc ription CPT-64060 Venipuncture Draw Fee 10:13:28 DROP TESTER CPT-28876 Venipuncture Draw Fee 08:31:11 CDT CPT-04861 Aspir/Inject Med Joint 18:17:28 CDT CPT-04587 Venipuncture Draw Fee 10:13:30 CDT CPT-35191 Venipuncture Draw Fee 08:31:43 DROP TESTER CPT-JTINJ Joint Injection 18:34:50 CDT CPT-75915 Knee 3V 12:25:09 CDT CPT-24067 Venipuncture Draw Fee 12:15:57 CDT CPT-060 Medical Surveillance Exam 21:31:43 CDT 2011 CPT-41913 Venipuncture Draw Fee 08:32:05 DROP TESTER CPT-OV Office Visit 18:19:06 CDT
--- OUTSIDE RECORDS SUMMARY | 2020-01-18 12:41 | XMS REPORT | Clinical Summary ---
Author Author Admin, Mitch Leon Organization [facility] Address Unknown Phone Unavailable Allergies, Adverse [...] of vessel, [place] or graft EDEMA 782.3 Active Mitch Urbina [...] 1/2 tab tid 3 days MECLIZINE HCL 44220219976 No Longer Active Corey SEGURA Active ALLOPURINOL 300 MG TABS Take 1 tablet by mouth daily 2 ALLOPURINOL 64051121977 No Longer Active Corey SEGURA Activ e CLONIDINE HCL 0.1 MG TABS 1 po bid 7 days, then 1/2 tab po b id 7 days CLONIDINE HCL 33736951779 No Longer Active Corey SEGURA Active COUMADIN 5 MG TABS 1 tab PO daily WARFARIN SODIUM 10267355205 Active Mitch Urbina DO Active COUMADIN 4 MG TABS 1 tablet daily WARFARIN SODI UM 20477876952 No Longer Active Corey SEGURA Active POLYTRIM 95736-1.1 UNIT/ML-% SOLN 1 drop in affected e ye every 3 hours while awake x 7 days POLYMYXIN B-TRIMETHOPRIM 90050975403 N o Longer Active Corey SEGURA Active LOSARTAN POTASSIUM-HCTZ 100-12.5 MG TABS 1 by mouth da [place] for high blood pressure LOSARTAN POTASSIUM-HCTZ 52923569547 Active Stephy Urbina DO Active LISINOPRIL-HYDROCHLOROTHIAZIDE 20-12.5 MG TABS 1 tab by mouth da rocky LISINOPRIL-HYDROCHLOROTHIAZIDE 50213551903 No Longer Active Mitch luis DO Active LISINOPRIL 20 MG TABS 1 tab po at HS LISINOPRIL 77387834011 No Longer Active Mitch Urbina DO Active COUMADIN 5 MG TABS 1 by mouth every other day WARFARIN SODIUM 33552002414 No Longer Active Mitch Urbina DO Active COUMADIN 6 MG TABS 1 by mouth every other day WARFARIN SODIUM 49907694489 No Longer Active Mitch Urbina DO Active COLCRYS 0.6 MG TABS 1 tab qid prn gout COLCHICINE 41760659328 Active Mitch Urbina DO Active SIMVASTATIN 40 MG TABS 1 tab daily at bedtime S IMVASTATIN 16023033276 Active Micth Urbina DO Active SIMVASTATIN 20 MG TABS 1 tab daily at bedtime S IMVASTATIN 32771792481 No Longer Active Mitch Urbina DO Active LOVENOX 100 MG/ML SC SOLN One injection twice a day 09/15/15 ENOXAPARIN SODIUM 13499795695 No Longer Active Carmine Navarrete ctive JANUVIA 50 MG TABS Take one by mouth daily DIEGO GLIPTIN PHOSPHATE 10176893846 Active Mitch Urbina DO Active JANUVIA 100 MG TABS 1/2 by mouth every day DIEGO GLIPTIN PHOSPHATE 88149554179 No Longer Active Bijal Philipp RN Active METFORMIN HCL 500 MG TABS 2 by mouth twice daily METFORMIN HCL 36160505017 Active Mitch Urbina DO Active GLIMEPIRIDE 4 MG TABS 1 tab po bid GLIMEPIRIDE 291589 64957 Active Mitch Urbina DO Active COLCRYS 0.6 MG TABS 1 po q 6 hours prn gout pain 03/02 COLCHICINE 85737265403 No Longer Active Camila [place] Active LISINOPRIL 5 MG TABS 1 by mouth every day LISIN OPRIL 17867273758 No Longer Active Nguyenmolly Perez Active KLOR-CON 20 MEQ PACK Take one by mouth daily 8 POTASSIUM CHLORIDE 63841966256 No Longer Active Nguyenmolly Perez Active FUROSEMIDE 40 MG TABS 1 by mouth daily FUROSEMI DE 75703519161 No Longer Active Nguyen Perez Active PROVIGIL 200 MG TABS 1/2 tab po q day MODAFINIL 00516 221549 Active Mitch Urbina DO Active PROVIGIL 100 MG TABS Take one by mouth daily MO DAFINIL 33072459378 No Longer Active Mitch Urbina DO Active BACTRIM DS 800-160 MG TAB 1 tab by mouth twice daily 2 TRIMETHOPRIM-SULFAMETHOXAZOLE 40724254387 No Longer Active Renan Hays MD Active FAMOTIDINE 20 MG TABS by mouth twice a day FAMOTI DINE 84379910610 Active Mitch Urbina DO Active ADULT ASPIRIN LOW STRENGTH 81 MG TBDP 1 by mouth every daily ASPIRIN 28535284733 Active Mitch Urbina DO Active METOPROLOL TARTRATE 50 MG TABS 1 by mouth twice daily METOPROLOL TARTRATE 28417942335 Active Mitch Urbina DO Active BACTRIM DS 800-160 MG TAB 1 tab by mouth twice daily 2 BACTRIM DS 800-160 MG TAB TRIMETHOPRIM-SULFAMETHOXAZOLE Inac tive PROVIGIL 100 MG TABS Take one by mouth daily 4 PROVIGIL 100 MG TABS 311303 MODAFINIL Inactive FUROSEMIDE 40 MG TABS 1 by mouth daily FU ROSEMIDE 40 MG TABS 067385 FUROSEMIDE Inactive KLOR-CON 20 MEQ PACK Take one by mouth daily 8 KLOR-CON 20 MEQ PACK 977919 POTASSIUM CHLORIDE Inactive LISINOPRIL 5 MG TABS 1 by mouth every day LISINOPRIL 5 MG TABS 007215 LISINOPRIL Inactive COLCRYS 0.6 MG TABS 1 po q 6 hours prn gout pain 03/02 COLCRYS 0.6 MG TABS COLCHICINE Inactive JANUVIA 100 MG TABS 1/2 by mouth every day JANUVI A 100 MG TABS SITAGLIPTIN PHOSPHATE Inactive SIMVASTATIN 20 MG TABS 1 tab daily at bedtime SIMVASTATIN 20 MG TABS 371080 SIMVASTATIN Inactive COUMADIN 6 MG TABS 1 by mouth every other day COUMADIN 6 MG TABS 472361 WARFARIN SODIUM Inactive COUMADIN 5 MG TABS 1 by mouth every other day COUMADIN 5 MG TABS 395202 WARFARIN SODIUM Inactive LISINOPRIL 20 MG TABS 1 tab po at HS KOKI NOPRIL 20 MG TABS 173295 LISINOPRIL Inactive LISINOPRIL-HYDROCHLOROTHIAZIDE 20-12.5 MG TABS 1 tab by mouth da rocky LISINOPRIL-HYDROCHLOROTHIAZIDE 20-12.5 MG TABS 050490 LISINOPRIL-HYDROCHLOROTHIAZIDE Inactive POLYTRIM 34388-9.1 UNIT/ML-% SOLN 1 drop in affected e ye every 3 hours while awake x 7 days POLYTRIM 21994-7.1 UNIT/ML-% SOLN 40163 7 POLYMYXIN B-TRIMETHOPRIM Inactive COUMADIN 4 MG TABS 1 tablet daily COUMADIN 4 MG TABS 481542 WARFARIN SODIUM Inactive CLONIDINE HCL 0.1 MG TABS 1 po bid 7 days, then 1/2 tab po b id 7 days CLONIDINE HCL 0.1 MG TABS 064216 CLONIDINE HCL I nactive ALLOPURINOL 300 MG TABS Take 1 tablet by mouth daily 2 ALLOPURINOL 300 MG TABS 085349 ALLOPURINOL Inactive MECLIZINE HCL 25 MG TAB 1 po tid 3 days, then 1/2 tab tid 3 days MECLIZINE HCL 25 MG TAB 497582 MECLIZINE HCL Inactive LOVENOX 100 MG/ML SC SOLN One injection twice a day 09/15/15 LOVENOX 100 MG/ML SC SOLN 449282 ENOXAPARIN SODIUM Inactive Vital Signs Date Name [...] 10.3 mg/dL 2.6-7.2 sodium, serum 136 mmol/L 000-076 3578/07/25 potassium, serum 4.6 mmol/L 3.5-5.2 chloride, serum [...] 11 .6-14.8 platelet count 277 10^3/MM^3 10*3/mm3 042-935 6737/07/25 mean corpuscular volume, RBC 80 fL 80-97 hematocrit, blood 40.1 % 41.0-53.0 hemoglobin, blood 12.8 g/dL 13.5-17.5 erythrocyte (RBC) count 5.02 10^6/MM^3 10*6/mm3 4.69-6.1 3 leukocyte count, blood 6.6 10^3/MM^3 10*3/mm3 4.6-10.2 Lab Report: CBC, Comp. Metabolic Panel, HGBA1C, MICROALBUMIN, Uric Acid - Lab microalbumin, urine 30 0-19 Lab Report: Comp. Metabolic Panel, HGBA1 C, Lipid Panel - Chemistry sodium, serum 137 mmol/L 525-276 6955/11/14 potassium, serum 4.4 mmol/L 3.5-5.2 chloride, serum [...] 8.0 % 4.3-6.0 cholesterol, serum 130 mg/dL 182-187 3374/11/14 triglyceride, serum, fasting 288 mg/dL 30-200 HDL [...] 1.0-3.5 Encounters Code Encounter Date Provider Facility CPT-94587 Level 3 Est. Patient 13:53:19 [employer] Mitch luis [facility] CPT-31202 Level 3 Est. Patient 19:19:37 [employer] Mitch luis [facility] CPT-92250 Level 3 Est. Patient 13:25:53 [employer] Tavo toure MD [facility] CPT-64249 Level 3 Est. Patient 18:17:28 CDT Mitch luis [facility] CPT-21543 Level 3 Est. Patient 15:22:57 CDT Mitch luis [facility] CPT-57575 Level 3 Est. Patient 18:21:50 CDT Mitch luis [facility] CPT-78907 Level 3 Est. Patient 18:20:38 CDT Mitch luis [facility] CPT-65106 Level 3 Est. Patient 15:37:55 CDT Mitch luis [facility] CPT-98348 Level 2 Est. Patient 15:54:44 CDT Carmine benton MD [facility]-52304 Level 3 Est. Patient 21:46:01 [employer] Mitch luis [facility] CPT-56987 Level 3 Est. Patient 22:15:50 CDT Mitch luis [facility] CPT-73646 Level 3 Est. Patient 10:48:15 CDT Mitch luis DO [facility] CPT-43296 Level 3 Est. Patient 23:20:57 CDT Tavo toure MD [facility] CPT-38620 Level 3 Est. Patient 16:26:13 CDT Mitch luis [facility] Procedures Code Procedure Name Date Entry Date Standard Desc ription CPT-39875 Venipuncture Draw Fee 10:13:28 [employer] CPT-84633 Venipuncture Draw Fee 08:31:11 CDT CPT-92118 Aspir/Inject Med Joint 18:17:28 CDT CPT-41009 Venipuncture Draw Fee 10:13:30 CDT CPT-54546 Venipuncture Draw Fee 08:31:43 [employer] CPT-JTINJ Joint Injection 18:34:50 CDT CPT-19310 Knee 3V 12:25:09 CDT CPT-66134 Venipuncture Draw Fee 12:15:57 CDT CPT-060 Medical Surveillance Exam 21:31:43 CDT 2011 CPT-85403 Venipuncture Draw Fee 08:32:05 [employer] CPT-OV Office Visit 18:19:06 CDT
--- NOTE | 2020-01-18 12:42 | Progress Note-Pre Operative ---
Pre-Operative Progress Note H&P Reviewed The H&P was reviewed, patient examined and no changes noted. Date Seen by Provider: Jan 18, 2020 Time Seen by Provider: 12:41 Date H&P Reviewed: Jan 18, 2020 Time H&P Reviewed: 12:42 Pre-Operative Diagnosis: Osteomyelitis left 3rd toe DONOVAN MERRITT [employer] Jan 18, 2020 12:42
--- OUTSIDE RECORDS SUMMARY | 2020-01-18 12:42 | XMS REPORT | Clinical Summary ---
Author Author Admin, Mitch Leon Organization [facility] Address Unknown Phone Allergies, Adverse Reactions, Alerts [...] Coronary atherosclerosis of unspecified type of vessel, [place] or graft EDEMA 782.3 Active Mitch Kilpatrick [...] 1/2 tab tid 3 days MECLIZINE HCL 79662601291 No Longer Active Corey SEGURA Active ALLOPURINOL 300 MG TABS Take 1 tablet by mouth daily 2 ALLOPURINOL 44271067586 No Longer Active Corey SEGURA Activ e CLONIDINE HCL 0.1 MG TABS 1 po bid 7 days, then 1/2 tab po b id 7 days CLONIDINE HCL 73480222506 No Longer Active Corey SEGURA Active COUMADIN 5 MG TABS 1 tab PO daily WARFARIN SODIUM 82873697658 Active Mitch Urbina DO Active COUMADIN 4 MG TABS 1 tablet daily WARFARIN SODI UM 57751394017 No Longer Active Corey SEGURA Active POLYTRIM 11465-3.1 UNIT/ML-% SOLN 1 drop in affected e ye every 3 hours while awake x 7 days POLYMYXIN B-TRIMETHOPRIM 34652024960 N o Longer Active Corey SEGURA Active LOSARTAN POTASSIUM-HCTZ 100-12.5 MG TABS 1 by mouth da rocky for high blood pressure LOSARTAN POTASSIUM-HCTZ 94011888709 Active Stephy Urbina DO Active LISINOPRIL-HYDROCHLOROTHIAZIDE 20-12.5 MG TABS 1 tab by mouth da rocky LISINOPRIL-HYDROCHLOROTHIAZIDE 94294560927 No Longer Active Mitch luis DO Active LISINOPRIL 20 MG TABS 1 tab po at HS LISINOPRIL 97652838801 No Longer Active Mitch Urbina DO Active COUMADIN 5 MG TABS 1 by mouth every other day WARFARIN SODIUM 26571336388 No Longer Active Mitch Urbina DO Active COUMADIN 6 MG TABS 1 by mouth every other day WARFARIN SODIUM 84048123775 No Longer Active Mitch Urbina DO Active COLCRYS 0.6 MG TABS 1 tab qid prn gout COLCHICINE 68943494825 Active Mitch Urbina DO Active SIMVASTATIN 40 MG TABS 1 tab daily at bedtime S IMVASTATIN 35141892639 Active Mitch Urbina DO Active SIMVASTATIN 20 MG TABS 1 tab daily at bedtime S IMVASTATIN 81559697576 No Longer Active Mitch Urbina DO Active LOVENOX 100 MG/ML SC SOLN One injection twice a day 09/15/15 ENOXAPARIN SODIUM 18603982715 No Longer Active Carmine Navarrete ctive JANUVIA 50 MG TABS Take one by mouth daily DIEGO GLIPTIN PHOSPHATE 63801869927 Active Mitch Urbina DO Active JANUVIA 100 MG TABS 1/2 by mouth every day DIEGO GLIPTIN PHOSPHATE 12604577029 No Longer Active Bijal Philipp RN Active METFORMIN HCL 500 MG TABS 2 by mouth twice daily METFORMIN HCL 08323127351 Active Curly Coker MD Active GLIMEPIRIDE 4 MG TABS 1 tab po bid GLIMEPIRIDE 631377 91819 Active Mitch Urbina DO Active COLCRYS 0.6 MG TABS 1 po q 6 hours prn gout pain 03/02 COLCHICINE 98870516130 No Longer Active Camila [place] Active LISINOPRIL 5 MG TABS 1 by mouth every day LISIN OPRIL 76644966024 No Longer Active Nguyenmolly Perez Active KLOR-CON 20 MEQ PACK Take one by mouth daily POTASSIUM CHLORIDE 16160222782 No Longer Active Nguyenmolly Perez Active FUROSEMIDE 40 MG TABS 1 by mouth daily FUROSEMI DE 23468897165 No Longer Active Nguyen Perez Active PROVIGIL 200 MG TABS 1/2 tab po q day MODAFINIL 71791 688175 Active Mitch Urbina DO Active PROVIGIL 100 MG TABS Take one by mouth daily MO DAFINIL 31491143043 No Longer Active Mitch Urbina DO Active BACTRIM DS 800-160 MG TAB 1 tab by mouth twice daily TRIMETHOPRIM-SULFAMETHOXAZOLE 97145971801 No Longer Active Renan Hays MD Active FAMOTIDINE 20 MG TABS by mouth twice a day FAMOTI DINE 97463396536 Active Mitch Urbina DO Active ADULT ASPIRIN LOW STRENGTH 81 MG TBDP 1 by mouth every daily ASPIRIN 13176674989 Active Mitch Urbina DO Active METOPROLOL TARTRATE 50 MG TABS 1 by mouth twice daily METOPROLOL TARTRATE 09023623050 Active Mitch Urbina DO Active BACTRIM DS 800-160 MG TAB 1 tab by mouth twice daily 2 BACTRIM DS 800-160 MG TAB TRIMETHOPRIM-SULFAMETHOXAZOLE Inac tive PROVIGIL 100 MG TABS Take one by mouth daily 4 PROVIGIL 100 MG TABS 055363 MODAFINIL Inactive FUROSEMIDE 40 MG TABS 1 by mouth daily FU ROSEMIDE 40 MG TABS 143257 FUROSEMIDE Inactive KLOR-CON 20 MEQ PACK Take one by mouth daily 8 KLOR-CON 20 MEQ PACK 922123 POTASSIUM CHLORIDE Inactive LISINOPRIL 5 MG TABS 1 by mouth every day LISINOPRIL 5 MG TABS 522614 LISINOPRIL Inactive COLCRYS 0.6 MG TABS 1 po q 6 hours prn gout pain 03/02 COLCRYS 0.6 MG TABS COLCHICINE Inactive JANUVIA 100 MG TABS 1/2 by mouth every day JANUVI A 100 MG TABS SITAGLIPTIN PHOSPHATE Inactive SIMVASTATIN 20 MG TABS 1 tab daily at bedtime SIMVASTATIN 20 MG TABS 817601 SIMVASTATIN Inactive COUMADIN 6 MG TABS 1 by mouth every other day COUMADIN 6 MG TABS 696827 WARFARIN SODIUM Inactive COUMADIN 5 MG TABS 1 by mouth every other day COUMADIN 5 MG TABS 042274 WARFARIN SODIUM Inactive LISINOPRIL 20 MG TABS 1 tab po at HS [place]OKI NOPRIL 20 MG TABS 658935 LISINOPRIL Inactive LISINOPRIL-HYDROCHLOROTHIAZIDE 20-12.5 MG TABS 1 tab by mouth da [place] LISINOPRIL-HYDROCHLOROTHIAZIDE 20-12.5 MG TABS 343685 LISINOPRIL-HYDROCHLOROTHIAZIDE Inactive POLYTRIM 72050-5.1 UNIT/ML-% SOLN 1 drop in affected e ye every 3 hours while awake x 7 days POLYTRIM 14750-4.1 UNIT/ML-% SOLN 12300 7 POLYMYXIN B-TRIMETHOPRIM Inactive COUMADIN 4 MG TABS 1 tablet daily COUMADIN 4 MG TABS 693464 WARFARIN SODIUM Inactive CLONIDINE HCL 0.1 MG TABS 1 po bid 7 days, then 1/2 tab po b id 7 days CLONIDINE HCL 0.1 MG TABS 927979 CLONIDINE HCL I nactive ALLOPURINOL 300 MG TABS Take 1 tablet by mouth daily 2 ALLOPURINOL 300 MG TABS 291053 ALLOPURINOL Inactive MECLIZINE HCL 25 MG TAB 1 po tid 3 days, then 1/2 tab tid 3 days MECLIZINE HCL 25 MG TAB 607322 MECLIZINE HCL Inactive LOVENOX 100 MG/ML SC SOLN One injection twice a day 09/15/15 LOVENOX 100 MG/ML SC SOLN 698507 ENOXAPARIN SODIUM Inactive Vital Signs Date Name [...] 6.9 % 4.3-6.0 cholesterol, serum 108 mg/dL 243-072 0135/11/01 triglyceride, serum, fasting 112 mg/dL 30-200 HDL [...] 1.0-3.5 Encounters Code Encounter Date Provider Facility CPT-07270 Level 3 Est. Patient 13:53:19 CERTIFIED PEDIATRIC NURSE PRACTITIONER Mitch luis [facility] CPT-57057 Level 3 Est. Patient 19:19:37 CERTIFIED PEDIATRIC NURSE PRACTITIONER Mitch luis [facility] CPT-54043 Level 3 Est. Patient 13:25:53 CERTIFIED PEDIATRIC NURSE PRACTITIONER Tavo toure MD [facility] CPT-94522 Level 3 Est. Patient 18:17:28 CDT Mitch luis [facility] CPT-98437 Level 3 Est. Patient 15:22:57 CDT Mitch luis [facility] CPT-70227 Level 3 Est. Patient 18:21:50 CDT Mitch luis [facility] CPT-31933 Level 3 Est. Patient 18:20:38 CDT Mitch luis [facility] CPT-26261 Level 3 Est. Patient 15:37:55 CDT Mitch luis [facility] CPT-44883 Level 2 Est. Patient 15:54:44 CDT Carmine benton MD [facility] CPT-76053 Level 3 Est. Patient 21:46:01 CERTIFIED PEDIATRIC NURSE PRACTITIONER Mitch luis [facility] CPT-93355 Level 3 Est. Patient 22:15:50 CDT Mitch Arnol luis [facility] CPT-67785 Level 3 Est. Patient 10:48:15 CDT Mitch luis [facility] CPT-43752 Level 3 Est. Patient 23:20:57 CDT Tavo toure MD [facility] CPT-20964 Level 3 Est. Patient 16:26:13 CDT Mitch Castellano janelle [facility] Procedures Code Procedure Name Date Entry Date Standard Desc ription CPT-61594 Venipuncture Draw Fee 10:13:28 CERTIFIED PEDIATRIC NURSE PRACTITIONER CPT-09081 Venipuncture Draw Fee 08:31:11 CDT CPT-09242 Aspir/Inject Med Joint 18:17:28 CDT CPT-78666 Venipuncture Draw Fee 10:13:30 CDT CPT-21362 Venipuncture Draw Fee 08:31:43 CERTIFIED PEDIATRIC NURSE PRACTITIONER CPT-JTINJ Joint Injection 18:34:50 CDT CPT-92792 Knee 3V 12:25:09 CDT CPT-47513 Venipuncture Draw Fee 12:15:57 CDT CPT-060 Medical Surveillance Exam 21:31:43 CDT 2011 CPT-89758 Venipuncture Draw Fee 08:32:05 CERTIFIED PEDIATRIC NURSE PRACTITIONER CPT-OV Office Visit 18:19:06 CDT
--- OUTSIDE RECORDS SUMMARY | 2020-01-18 12:42 | XMS REPORT | Clinical Summary ---
Author Author Admin, Mitch Leon Organization [facility] Address Unknown Phone Allergies, Adverse Reactions, [...] complicating a procedure HYPERLIPIDEMIA 272.4 Active Renan Hyas MD Other and unspecified hyperlipidemia DIABETES, TYPE [...] of vessel, [place] or graft EDEMA 782.3 Active Mitch Kilpatrick [...] 1/2 tab tid 3 days MECLIZINE HCL 16377293577 No Longer Active Corey SEGURA Active ALLOPURINOL 300 MG TABS Take 1 tablet by mouth daily 2 ALLOPURINOL 40772483703 No Longer Active Corey SEGURA Activ e CLONIDINE HCL 0.1 MG TABS 1 po bid 7 days, then 1/2 tab po b id 7 days CLONIDINE HCL 38906946804 No Longer Active Corey SEGURA Active COUMADIN 5 MG TABS 1 tab PO daily WARFARIN SODIUM 53843002322 Active Mitch Urbina DO Active COUMADIN 4 MG TABS 1 tablet daily WARFARIN SODI UM 74720677330 No Longer Active Corey SEGURA Active POLYTRIM 44440-1.1 UNIT/ML-% SOLN 1 drop in affected e ye every 3 hours while awake x 7 days POLYMYXIN B-TRIMETHOPRIM 83934039741 N o Longer Active Corey SEGURA Active LOS[place]AN POTASSIUM-HCTZ 100-12.5 MG TABS 1 by mouth [place] for high blood pressure LOSARTAN POTASSIUM-HCTZ 38754583334 Active Stephy Urbina DO Active LISINOPRIL-HYDROCHLOROTHIAZIDE 20-12.5 MG TABS 1 tab by mouth da [place] LISINOPRIL-HYDROCHLOROTHIAZIDE 20472534105 No Longer Active Mitch luis DO Active LISINOPRIL 20 MG TABS 1 tab po at HS LISINOPRIL 86449793793 No Longer Active Mitch Urbina DO Active COUMADIN 5 MG TABS 1 by mouth every other day WARFARIN SODIUM 10970571552 No Longer Active Mitch Urbina DO Active COUMADIN 6 MG TABS 1 by mouth every other day WARFARIN SODIUM 20711055551 No Longer Active Mitch Urbina DO Active COLCRYS 0.6 MG TABS 1 tab qid prn gout COLCHICINE 53068830469 Active Mitch Urbina DO Active SIMVASTATIN 40 MG TABS 1 tab daily at bedtime S IMVASTATIN 99095521232 Active Mitch Urbina DO Active SIMVASTATIN 20 MG TABS 1 tab daily at bedtime S IMVASTATIN 35501510300 No Longer Active Mitch Urbina DO Active LOVENOX 100 MG/ML SC SOLN One injection twice a day 09/15/15 ENOXAPARIN SODIUM 19043079584 No Longer Active Carmine Navarrete ctive JANUVIA 50 MG TABS Take one by mouth daily DIEGO GLIPTIN PHOSPHATE 93377684683 Active Mitch Urbina DO Active JANUVIA 100 MG TABS 1/2 by mouth every day DIEGO GLIPTIN PHOSPHATE 91443385640 No Longer Active Bijal Philipp RN Active METFORMIN HCL 500 MG TABS 2 by mouth twice daily METFORMIN HCL 40815608170 Active Curly Coker MD Active GLIMEPIRIDE 4 MG TABS 1 tab po bid GLIMEPIRIDE 397368 65474 Active Mitch Urbina DO Active COLCRYS 0.6 MG TABS 1 po q 6 hours prn gout pain 03/02 COLCHICINE 11850988841 No Longer Active Camila [place] Active LISINOPRIL 5 MG TABS 1 by mouth every day LISIN OPRIL 80510438603 No Longer Active Nguyenmolly Perez Active KLOR-CON 20 MEQ PACK Take one by mouth daily POTASSIUM CHLORIDE 25273041099 No Longer Active Nguyenmolly Perez Active FUROSEMIDE 40 MG TABS 1 by mouth daily FUROSEMI DE 75351526250 No Longer Active Nguyen Perez Active PROVIGIL 200 MG TABS 1/2 tab po q day MODAFINIL 18610 919626 Active Mitch Urbina DO Active PROVIGIL 100 MG TABS Take one by mouth daily MO DAFINIL 82752537668 No Longer Active Mitch Urbina DO Active BACTRIM DS 800-160 MG TAB 1 tab by mouth twice daily TRIMETHOPRIM-SULFAMETHOXAZOLE 35833914948 No Longer Active Renan Hays MD Active FAMOTIDINE 20 MG TABS by mouth twice a day FAMOTI DINE 83646521297 Active Mitch Urbina DO Active ADULT ASPIRIN LOW STRENGTH 81 MG TBDP 1 by mouth every daily ASPIRIN 29929377201 Active Mitch Urbina DO Active METOPROLOL TARTRATE 50 MG TABS 1 by mouth twice daily METOPROLOL TARTRATE 20668683129 Active Mitch Urbina DO Active BACTRIM DS 800-160 MG TAB 1 tab by mouth twice daily 2 BACTRIM DS 800-160 MG TAB TRIMETHOPRIM-SULFAMETHOXAZOLE Inac tive PROVIGIL 100 MG TABS Take one by mouth daily 4 PROVIGIL 100 MG TABS 820146 MODAFINIL Inactive FUROSEMIDE 40 MG TABS 1 by mouth daily FU ROSEMIDE 40 MG TABS 157172 FUROSEMIDE Inactive KLOR-CON 20 MEQ PACK Take one by mouth daily 8 KLOR-CON 20 MEQ PACK 551706 POTASSIUM CHLORIDE Inactive LISINOPRIL 5 MG TABS 1 by mouth every day LISINOPRIL 5 MG TABS 612494 LISINOPRIL Inactive COLCRYS 0.6 MG TABS 1 po q 6 hours prn gout pain 03/02 COLCRYS 0.6 MG TABS COLCHICINE Inactive JANUVIA 100 MG TABS 1/2 by mouth every day JANUVI A 100 MG TABS SITAGLIPTIN PHOSPHATE Inactive SIMVASTATIN 20 MG TABS 1 tab daily at bedtime SIMVASTATIN 20 MG TABS 820622 SIMVASTATIN Inactive COUMADIN 6 MG TABS 1 by mouth every other day COUMADIN 6 MG TABS 210788 WARFARIN SODIUM Inactive COUMADIN 5 MG TABS 1 by mouth every other day COUMADIN 5 MG TABS 006496 WARFARIN SODIUM Inactive LISINOPRIL 20 MG TABS 1 tab po at HS KOKI NOPRIL 20 MG TABS 126327 LISINOPRIL Inactive LISINOPRIL-HYDROCHLOROTHIAZIDE 20-12.5 MG TABS 1 tab by mouth da rocky LISINOPRIL-HYDROCHLOROTHIAZIDE 20-12.5 MG TABS 815273 LISINOPRIL-HYDROCHLOROTHIAZIDE Inactive POLYTRIM 84269-3.1 UNIT/ML-% SOLN 1 drop in affected e ye every 3 hours while awake x 7 days POLYTRIM 82160-8.1 UNIT/ML-% SOLN 14967 7 POLYMYXIN B-TRIMETHOPRIM Inactive COUMADIN 4 MG TABS 1 tablet daily COUMADIN 4 MG TABS 693593 WARFARIN SODIUM Inactive CLONIDINE HCL 0.1 MG TABS 1 po bid 7 days, then 1/2 tab po b id 7 days CLONIDINE HCL 0.1 MG TABS 067649 CLONIDINE HCL I nactive ALLOPURINOL 300 MG TABS Take 1 tablet by mouth daily 2 ALLOPURINOL 300 MG TABS 143094 ALLOPURINOL Inactive MECLIZINE HCL 25 MG TAB 1 po tid 3 days, then 1/2 tab tid 3 days MECLIZINE HCL 25 MG TAB 689487 MECLIZINE HCL Inactive LOVENOX 100 MG/ML SC SOLN One injection twice a day 09/15/15 LOVENOX 100 MG/ML SC SOLN 371705 ENOXAPARIN SODIUM Inactive Vital Signs Date Name [...] d blood pressure, diastolic 84 mm[Hg] BP amne blood pressure, systolic 192 mm[Hg] BP sys [...] Urbina DO coagulation managed by Mitch Urbina international normalized ratio (INR) international normalized ratio (INR) Lab Report: CBC, HGBA1C, Lipid Panel - C hemistry hemoglobin A1C, blood, as % of total hemoglobin 6.9 % 4.3-6.0 cholesterol, serum 108 mg/dL 645-551 9390/11/01 triglyceride, serum, fasting 112 mg/dL 30-200 HDL [...] ratio (INR) 2.6 1.0-3.5 prothrombin time (patient) 20.7 SECS s 11.4-12.8 international normalized ratio (INR) 2.8 1.0-3.5 prothrombin time (patient) 18.9 SECS s 11.4-12.8 international normalized ratio (INR) 2.4 1.0-3.5 prothrombin time (patient) 15.6 SECS s 11.4-12.8 international normalized ratio (INR) 1.6 1.0-3.5 prothrombin time (patient) 17.8 SECS s 11.4-12.8 international normalized ratio (INR) 2.1 1.0-3.5 prothrombin time (patient) 16.8 SECS s 11.1-13.4 international normalized ratio (INR) 1.9 1.0-3.5 Encounters Code Encounter Date Provider Facility CPT-45283 Level 3 Est. Patient 13:53:19 PARTS COUNTER ASSOCIATE Mitch luis [facility] CPT-23723 Level 3 Est. Patient 19:19:37 PARTS COUNTER ASSOCIATE Mitch luis [facility] CPT-44594 Level 3 Est. Patient 13:25:53 PARTS COUNTER ASSOCIATE Tavo toure MD [facility] CPT-36632 Level 3 Est. Patient 18:17:28 CDT Mitch luis [facility] CPT-19985 Level 3 Est. Patient 15:22:57 CDT Mitch luis [facility] CPT-02508 Level 3 Est. Patient 18:21:50 CDT Mitch luis [facility] CPT-65436 Level 3 Est. Patient 18:20:38 CDT Mitch luis [facility] CPT-58043 Level 3 Est. Patient 15:37:55 CDT Mitch luis [facility] CPT-34352 Level 2 Est. Patient 15:54:44 CDT Carmine benton MD [facility] CPT-83645 Level 3 Est. Patient 21:46:01 PARTS COUNTER ASSOCIATE Mitch luis [facility] CPT-01812 Level 3 Est. Patient 22:15:50 CDT Mitch Arnol luis [facility] CPT-67062 Level 3 Est. Patient 10:48:15 CDT Mitch luis [facility] CPT-78696 Level 3 Est. Patient 23:20:57 CDT Tavo toure MD [facility] CPT-93439 Level 3 Est. Patient 16:26:13 CDT Mitch Castellano janelle [facility] Procedures Code Procedure Name Date Entry Date Standard Desc ription CPT-03863 Venipuncture Draw Fee 10:13:28 PARTS COUNTER ASSOCIATE CPT-13558 Venipuncture Draw Fee 08:31:11 CDT CPT-16755 Aspir/Inject Med Joint 18:17:28 CDT CPT-76621 Venipuncture Draw Fee 10:13:30 CDT CPT-62589 Venipuncture Draw Fee 08:31:43 PARTS COUNTER ASSOCIATE CPT-JTINJ Joint Injection 18:34:50 CDT CPT-57082 Knee 3V 12:25:09 CDT CPT-40660 Venipuncture Draw Fee 12:15:57 CDT CPT-060 Medical Surveillance Exam 21:31:43 CDT 2011 CPT-66975 Venipuncture Draw Fee 08:32:05 PARTS COUNTER ASSOCIATE CPT-OV Office Visit 18:19:06 CDT
--- OUTSIDE RECORDS SUMMARY | 2020-01-18 12:42 | XMS REPORT | Clinical Summary ---
[...] Coronary atherosclerosis of unspecified type of vessel, [place] or graft EDEMA 782.3 Active Mitch Kilpatrick [...] 1/2 tab tid 3 days MECLIZINE HCL 52106515337 No Longer Active Corey SEGURA Active ALLOPURINOL 300 MG TABS Take 1 tablet by mouth daily 2 ALLOPURINOL 79736812312 No Longer Active Corey SEGURA Activ e CLONIDINE HCL 0.1 MG TABS 1 po bid 7 days, then 1/2 tab po b id 7 days CLONIDINE HCL 30037051244 No Longer Active Corey SEGURA Active COUMADIN 5 MG TABS 1 tab PO daily WARFARIN SODIUM 33072783971 Active Mitch Urbina DO Active COUMADIN 4 MG TABS 1 tablet daily WARFARIN SODI UM 76676412352 No Longer Active Corey SEGURA Active POLYTRIM 62615-2.1 UNIT/ML-% SOLN 1 drop in affected e ye every 3 hours while awake x 7 days POLYMYXIN B-TRIMETHOPRIM 12408756763 N o Longer Active Corey SEGURA Active LOSARTAN POTASSIUM-HCTZ 100-12.5 MG TABS 1 by mouth da rocky for high blood pressure LOSARTAN POTASSIUM-HCTZ 37046833891 Active Stephy Urbina DO Active LISINOPRIL-HYDROCHLOROTHIAZIDE 20-12.5 MG TABS 1 tab by mouth da rocky LISINOPRIL-HYDROCHLOROTHIAZIDE 98813784192 No Longer Active Mitch luis DO Active LISINOPRIL 20 MG TABS 1 tab po at HS LISINOPRIL 66993460485 No Longer Active Mitch Urbina DO Active COUMADIN 5 MG TABS 1 by mouth every other day WARFARIN SODIUM 69007876199 No Longer Active Mitch [place]ribna DO Active COUMADIN 6 MG TABS 1 by mouth every other day WARFARIN SODIUM 62471338201 No Longer Active Mitch Urbina DO Active COLCRYS 0.6 MG TABS 1 tab qid prn gout COLCHICINE 93055507165 Active Mitch Urbina DO Active SIMVASTATIN 40 MG TABS 1 tab daily at bedtime S IMVASTATIN 73661263786 Active Mitch Urbina DO Active SIMVASTATIN 20 MG TABS 1 tab daily at bedtime S IMVASTATIN 95570815754 No Longer Active Mitch Urbina DO Active LOVENOX 100 MG/ML SC SOLN One injection twice a day 09/15/15 ENOXAPARIN SODIUM 21872994974 No Longer Active Carmine Navarrete ctive JANUVIA 50 MG TABS Take one by mouth daily DIEGO GLIPTIN PHOSPHATE 69183926964 Active Mitch Urbina DO Active JANUVIA 100 MG TABS 1/2 by mouth every day DIEGO GLIPTIN PHOSPHATE 54587587513 No Longer Active Bijalseth Segal RN Active METFORMIN HCL 500 MG TABS 2 by mouth twice daily METFORMIN HCL 82557565567 Active Curly Coker MD Active GLIMEPIRIDE 4 MG TABS 1 tab po bid GLIMEPIRIDE 985152 72755 Active Mitch Urbina DO Active COLCRYS 0.6 MG TABS 1 po q 6 hours prn gout pain 03/02 COLCHICINE 13335764540 No Longer Active Camila [place] Active LISINOPRIL 5 MG TABS 1 by mouth every day LISIN OPRIL 65399739886 No Longer Active Nguyenmolly Perez Active KLOR-CON 20 MEQ PACK Take one by mouth daily 8 POTASSIUM CHLORIDE 80780027161 No Longer Active Nguyenmolly Perez Active FUROSEMIDE 40 MG TABS 1 by mouth daily FUROSEMI DE 18594062190 No Longer Active Nguyen Perez Active PROVIGIL 200 MG TABS 1/2 tab po q day MODAFINIL 91961 241861 Active Mitch Urbina DO Active PROVIGIL 100 MG TABS Take one by mouth daily MO DAFINIL 42277021351 No Longer Active Mitch Urbina DO Active BACTRIM DS 800-160 MG TAB 1 tab by mouth twice daily 2 TRIMETHOPRIM-SULFAMETHOXAZOLE 13263643901 No Longer Active Renan Hays MD Active FAMOTIDINE 20 MG TABS by mouth twice a day FAMOTI DINE 58170984224 Active Mitch Urbina DO Active ADULT ASPIRIN LOW STRENGTH 81 MG TBDP 1 by mouth every daily ASPIRIN 08365322442 Active Mitch Urbina DO Active METOPROLOL TARTRATE 50 MG TABS 1 by mouth twice daily METOPROLOL TARTRATE 51489498443 Active Mitch Urbina DO Active BACTRIM DS 800-160 MG TAB 1 tab by mouth twice daily 2 BACTRIM DS 800-160 MG TAB TRIMETHOPRIM-SULFAMETHOXAZOLE Inac tive PROVIGIL 100 MG TABS Take one by mouth daily 4 PROVIGIL 100 MG TABS 693669 MODAFINIL Inactive FUROSEMIDE 40 MG TABS 1 by mouth daily FU ROSEMIDE 40 MG TABS 734768 FUROSEMIDE Inactive KLOR-CON 20 MEQ PACK Take one by mouth daily 8 KLOR-CON 20 MEQ PACK 096713 POTASSIUM CHLORIDE Inactive LISINOPRIL 5 MG TABS 1 by mouth every day LISINOPRIL 5 MG TABS 515788 LISINOPRIL Inactive COLCRYS 0.6 MG TABS 1 po q 6 hours prn gout pain 03/02 COLCRYS 0.6 MG TABS COLCHICINE Inactive JANUVIA 100 MG TABS 1/2 by mouth every day JANUVI A 100 MG TABS SITAGLIPTIN PHOSPHATE Inactive SIMVASTATIN 20 MG TABS 1 tab daily at bedtime SIMVASTATIN 20 MG TABS 742265 SIMVASTATIN Inactive COUMADIN 6 MG TABS 1 by mouth every other day COUMADIN 6 MG TABS 888170 WARFARIN SODIUM Inactive COUMADIN 5 MG TABS 1 by mouth every other day COUMADIN 5 MG TABS 879605 WARFARIN SODIUM Inactive LISINOPRIL 20 MG TABS 1 tab po at HS KOKI NOPRIL 20 MG TABS 705013 LISINOPRIL Inactive LISINOPRIL-HYDROCHLOROTHIAZIDE 20-12.5 MG TABS 1 tab by mouth da rocky LISINOPRIL-HYDROCHLOROTHIAZIDE 20-12.5 MG TABS 903539 LISINOPRIL-HYDROCHLOROTHIAZIDE Inactive POLYTRIM 35455-6.1 UNIT/ML-% SOLN 1 drop in affected e ye every 3 hours while awake x 7 days POLYTRIM 69825-7.1 UNIT/ML-% SOLN 63311 7 POLYMYXIN B-TRIMETHOPRIM Inactive COUMADIN 4 MG TABS 1 tablet daily COUMADIN 4 MG TABS 990845 WARFARIN SODIUM Inactive CLONIDINE HCL 0.1 MG TABS 1 po bid 7 days, then 1/2 tab po b id 7 days CLONIDINE HCL 0.1 MG TABS 676481 CLONIDINE HCL I nactive ALLOPURINOL 300 MG TABS Take 1 tablet by mouth daily 2 ALLOPURINOL 300 MG TABS 879406 ALLOPURINOL Inactive MECLIZINE HCL 25 MG TAB 1 po tid 3 days, then 1/2 tab tid 3 days MECLIZINE HCL 25 MG TAB 877911 MECLIZINE HCL Inactive LOVENOX 100 MG/ML SC SOLN One injection twice a day 09/15/15 LOVENOX 100 MG/ML SC SOLN 705435 ENOXAPARIN SODIUM Inactive Vital Signs Date Name [...] 6.9 % 4.3-6.0 cholesterol, serum 108 mg/dL 375-541 6493/11/01 triglyceride, serum, fasting 112 mg/dL 30-200 HDL [...] 1.0-3.5 Encounters Code Encounter Date Provider Facility CPT-52154 Level 3 Est. Patient 13:53:19 CIVILIAN TECHNICIAN Mitch luis [facility] CPT-75810 Level 3 Est. Patient 19:19:37 CIVILIAN TECHNICIAN Mitch luis [facility] CPT-01024 Level 3 Est. Patient 13:25:53 CIVILIAN TECHNICIAN Tavo toure MD [facility] CPT-71536 Level 3 Est. Patient 18:17:28 CDT Mitch luis [facility] CPT-93346 Level 3 Est. Patient 15:22:57 CDT Mitch lusi [facility] CPT-56910 Level 3 Est. Patient 18:21:50 CDT Mitch luis [facility] CPT-20617 Level 3 Est. Patient 18:20:38 CDT Mitch luis [facility] CPT-49611 Level 3 Est. Patient 15:37:55 CDT Mitch luis [facility] CPT-03188 Level 2 Est. Patient 15:54:44 CDT Carmine benton MD [facility] CPT-17228 Level 3 Est. Patient 21:46:01 CIVILIAN TECHNICIAN Mitch luis [facility] CPT-04041 Level 3 Est. Patient 22:15:50 CDT Mitch luis [facility] CPT-58665 Level 3 Est. Patient 10:48:15 CDT Mitch luis [facility] CPT-37609 Level 3 Est. Patient 23:20:57 CDT Tavo toure MD [facility] CPT-33991 Level 3 Est. Patient 16:26:13 CDT Mitch luis [facility] Procedures Code Procedure Name Date Entry Date Standard Desc ription CPT-32404 Venipuncture Draw Fee 10:13:28 CIVILIAN TECHNICIAN CPT-04332 Venipuncture Draw Fee 08:31:11 CDT CPT-21854 Aspir/Inject Med Joint 18:17:28 CDT CPT-09816 Venipuncture Draw Fee 10:13:30 CDT CPT-07336 Venipuncture Draw Fee 08:31:43 CIVILIAN TECHNICIAN CPT-JTINJ Joint Injection 18:34:50 CDT CPT-91692 Knee 3V 12:25:09 CDT CPT-67322 Venipuncture Draw Fee 12:15:57 CDT CPT-060 Medical Surveillance Exam 21:31:43 CDT 2011 CPT-79756 Venipuncture Draw Fee 08:32:05 CIVILIAN TECHNICIAN CPT-OV Office Visit 18:19:06 CDT
--- OUTSIDE RECORDS SUMMARY | 2020-01-18 12:42 | XMS REPORT | Clinical Summary ---
[...] Coronary atherosclerosis of unspecified type of vessel, [place] or graft EDEMA 782.3 Resolved Mitch Urbina [...] 1 tablet by mouth daily AMLODIPINE BESYLATE 24077584553 No Longer Active Joe Williamson APRN Active MITIGARE 0.6 MG ORAL CAPS 2 capsules at onset of gout pain, then take one capsule at 1 hour if symptoms persist. COLCHICINE 59 497164078 Active Mitch Urbina DO Active COUMADIN 1 MG TAB 2 tabs orally daily with the 5mg tab to equal 7mg daily WARFARIN SODIUM 25215641046 Active Brenda Shen Active COLCRYS 0.6 MG TABS 1 tab qid prn gout COLCHICINE 76641923461 Active Norma Cazares Active INVOKANA 100 MG ORAL TABS 1 tablet orally daily CANAGLIFLOZIN 00455966616 Active Brenda Shen Active MINOXIDIL 2.5 MG TABS 1 tablet daily for high blood pressure 10/23 MINOXIDIL 69531167745 Active Ana Wallace Active MECLIZINE HCL 25 MG TAB 1 po tid 3 days, then 1/2 tab tid 3 days MECLIZINE HCL 60011237485 No Longer Active Corey SEGURA Active ALLOPURINOL 300 MG TABS Take 1 tablet by mouth daily 2 ALLOPURINOL 26957691110 No Longer Active Corey SEGURA Activ e CLONIDINE HCL 0.1 MG TABS 1 po bid 7 days, then 1/2 tab po b id 7 days CLONIDINE HCL 77329760740 No Longer Active Corey SEGURA Active COUMADIN 5 MG TABS 1 tab PO daily WARFARIN SODIUM 58384999705 Active Mitch Urbina DO Active COUMADIN 4 MG TABS 1 tablet daily WARFARIN SODI UM 38238452583 No Longer Active Corey SEGURA Active POLYTRIM 33161-7.1 UNIT/ML-% SOLN 1 drop in affected e ye every 3 hours while awake x 7 days POLYMYXIN B-TRIMETHOPRIM 50996947832 N o Longer Active Corey SEGURA Active LOSARTAN POTASSIUM-HCTZ 100-12.5 MG TABS 1 by mouth da [place] for high blood pressure LOSARTAN POTASSIUM-HCTZ 57103090750 Active Stephy Urbina DO Active LISINOPRIL-HYDROCHLOROTHIAZIDE 20-12.5 MG TABS 1 tab by mouth da rocky LISINOPRIL-HYDROCHLOROTHIAZIDE 53392984266 No Longer Active Mitch luis DO Active LISINOPRIL 20 MG TABS 1 tab po at HS LISINOPRIL 33058202708 No Longer Active Mitch Urbina DO Active COUMADIN 5 MG TABS 1 by mouth every other day WARFARIN SODIUM 59945276509 No Longer Active Mitch [place] DO Active COUMADIN 6 MG TABS 1 by mouth every other day WARFARIN SODIUM 43483205696 No Longer Active Mitch Urbina DO Active SIMVASTATIN 40 MG TABS 1 tab daily at bedtime S IMVASTATIN 57061931661 Active Mitch Urbina DO Active SIMVASTATIN 20 MG TABS 1 tab daily at bedtime S IMVASTATIN 37796628611 No Longer Active Mitch Urbina DO Active LOVENOX 100 MG/ML SC SOLN One injection twice a day 09/15/15 ENOXAPARIN SODIUM 79585007712 No Longer Active Carmine Navarrete ctive JANUVIA 50 MG TABS Take one by mouth daily DIEGO GLIPTIN PHOSPHATE 69430848752 Active Micth Urbina DO Active JANUVIA 100 MG TABS 1/2 by mouth every day DIEGO GLIPTIN PHOSPHATE 76612851508 No Longer Active Bijal Segal RN Active METFORMIN HCL 500 MG TABS 2 by mouth twice daily METFORMIN HCL 60607767957 Active Mitch Urbina DO Active GLIMEPIRIDE 4 MG TABS 1 tab po bid GLIMEPIRIDE 794248 21060 Active Mitch Urbina DO Active COLCRYS 0.6 MG TABS 1 po q 6 hours prn gout pain 03/02 COLCHICINE 33948055187 No Longer Active Camila Reese Active LISINOPRIL 5 MG TABS 1 by mouth every day LISIN OPRIL 45624675050 No Longer Active Nguyen Perez Active KLOR-CON 20 MEQ PACK Take one by mouth daily 8 POTASSIUM CHLORIDE 16016771262 No Longer Active Nguyen Perez Active FUROSEMIDE 40 MG TABS 1 by mouth daily FUROSEMI DE 32986879949 No Longer Active Nguyen Perez Active PROVIGIL 200 MG TABS 1/2 tab po q day MODAFINIL 83407 996669 Active Brenda Shen Active PROVIGIL 100 MG TABS Take one by mouth daily MO DAFINIL 07590879469 No Longer Active Mitch Urbina DO Active BACTRIM DS 800-160 MG TAB 1 tab by mouth twice daily 2 TRIMETHOPRIM-SULFAMETHOXAZOLE 02445614940 No Longer Active Renan Hays MD Active FAMOTIDINE 20 MG TABS by mouth twice a day FAMOTI DINE 86768725274 Active Mitch Urbina DO Active ADULT ASPIRIN LOW STRENGTH 81 MG TBDP 1 by mouth every daily ASPIRIN 94818921143 Active Mitch Urbina DO Active METOPROLOL TARTRATE 50 MG TABS 1 by mouth twice daily METOPROLOL TARTRATE 23520563968 Active Mitch Urbina DO Active BACTRIM DS 800-160 MG TAB 1 tab by mouth twice daily 2 BACTRIM DS 800-160 MG TAB 617591 TRIMETHOPRIM-SULFAMETHOXAZOLE Inac tive PROVIGIL 100 MG TABS Take one by mouth daily 4 PROVIGIL 100 MG TABS 347087 MODAFINIL Inactive FUROSEMIDE 40 MG TABS 1 by mouth daily FU ROSEMIDE 40 MG TABS 099995 FUROSEMIDE Inactive KLOR-CON 20 MEQ PACK Take one by mouth daily 8 KLOR-CON 20 MEQ PACK 0620215 POTASSIUM CHLORIDE Inactive LISINOPRIL 5 MG TABS 1 by mouth every day LISINOPRIL 5 MG TABS 897606 LISINOPRIL Inactive COLCRYS 0.6 MG TABS 1 po q 6 hours prn gout pain 03/02 COLCRYS 0.6 MG TABS 705218 COLCHICINE Inactive JANUVIA 100 MG TABS 1/2 by mouth every day JANUVI A 100 MG TABS SITAGLIPTIN PHOSPHATE Inactive SIMVASTATIN 20 MG TABS 1 tab daily at bedtime SIMVASTATIN 20 MG TABS 929924 SIMVASTATIN Inactive COUMADIN 6 MG TABS 1 by mouth every other day COUMADIN 6 MG TABS 783053 WARFARIN SODIUM Inactive COUMADIN 5 MG TABS 1 by mouth every other day COUMADIN 5 MG TABS 267784 WARFARIN SODIUM Inactive LISINOPRIL 20 MG TABS 1 tab po at HS KOKI NOPRIL 20 MG TABS 643658 LISINOPRIL Inactive LISINOPRIL-HYDROCHLOROTHIAZIDE 20-12.5 MG TABS 1 tab by mouth da rocky LISINOPRIL-HYDROCHLOROTHIAZIDE 20-12.5 MG TABS 225886 LISINOPRIL-HYDROCHLOROTHIAZIDE Inactive POLYTRIM 49796-9.1 UNIT/ML-% SOLN 1 drop in affected e ye every 3 hours while awake x 7 days POLYTRIM 90458-3.1 UNIT/ML-% SOLN 58665 7 POLYMYXIN B-TRIMETHOPRIM Inactive COUMADIN 4 MG TABS 1 tablet daily COUMADIN 4 MG TABS 907970 WARFARIN SODIUM Inactive CLONIDINE HCL 0.1 MG TABS 1 po bid 7 days, then 1/2 tab po b id 7 days CLONIDINE HCL 0.1 MG TABS 188019 CLONIDINE HCL I nactive ALLOPURINOL 300 MG TABS Take 1 tablet by mouth daily 2 ALLOPURINOL 300 MG TABS 660511 ALLOPURINOL Inactive MECLIZINE HCL 25 MG TAB 1 po tid 3 days, then 1/2 tab tid 3 days MECLIZINE HCL 25 MG TAB 568119 MECLIZINE HCL Inactive AMLODIPINE BESYLATE 5 MG TABS 1 tablet by mouth daily AMLODIPINE BESYLATE 5 MG TABS 884835 AMLODIPINE BESYLATE Inactive LOVENOX 100 MG/ML SC SOLN One injection twice a day 09/15/15 LOVENOX 100 MG/ML SC SOLN 901788 ENOXAPARIN SODIUM Inactive Vital Signs Date Name [...] Range Description Chart Maintenance: hemoccult added to [facility] - Chemistry occult blood, stool (E&M) Positive Lab Report: Lipid Panel, HEPATIC PANEL, MICROALB/CREAT W/RATIO, HGBA1C, CBC - Chemistry cholesterol, serum 136 mg/dL 230-003 5900/08/09 triglyceride, serum, fasting 187 mg/dL 30-200 HDL [...] 1.0-3.5 Encounters Code Encounter Date Provider Facility CPT-59691 Level 3 Est. Patient 15:10:14 CDT Joe kamara [facility] CPT-70416 Level 3 Est. Patient 15:03:46 CDT Joe kamara [facility] CPT-17556 Level 3 Est. Patient 14:21:06 CDT Mitch luis [facility] CPT-26600 Level 3 Est. Patient 14:52:06 CDT Joe kamara [facility] CPT-09707 Level 3 Est. Patient 09:34:30 OXYACETYLENE CUTTER Mitch luis [facility] CPT-22542 Level 3 Est. Patient 09:37:15 CDT Mitch luis [facility] CPT-39799 Level 3 Est. Patient 17:01:00 OXYACETYLENE CUTTER Mitch luis [facility] CPT-53927 Level 3 Est. Patient 13:53:19 OXYACETYLENE CUTTER Mitch luis [facility] CPT-48350 Level 3 Est. Patient 19:19:37 OXYACETYLENE CUTTER Mitch luis [facility] CPT-62127 Level 3 Est. Patient 13:25:53 OXYACETYLENE CUTTER Tavo toure MD [facility] CPT-66809 Level 3 Est. Patient 18:17:28 CDT Mitch luis [facility] CPT-78944 Level 3 Est. Patient 15:22:57 CDT Mitch luis [facility] CPT-99390 Level 3 Est. Patient 18:21:50 CDT Mitch luis [facility] CPT-02283 Level 3 Est. Patient 18:20:38 CDT Mitch luis [facility] CPT-63117 Level 3 Est. Patient 15:37:55 CDT Mitch luis [facility] CPT-51934 Level 2 Est. Patient 15:54:44 CDT Carmine benton MD [facility] CPT-00880 Level 3 Est. Patient 21:46:01 OXYACETYLENE CUTTER Mitch luis [facility] CPT-07953 Level 3 Est. Patient 22:15:50 CDT Mitch luis [facility] CPT-90548 Level 3 Est. Patient 10:48:15 CDT Mitch luis [facility] CPT-64254 Level 3 Est. Patient 23:20:57 CDT Tavo toure MD [facility] CPT-11791 Level 3 Est. Patient 16:26:13 CDT Mitch Arnol luis [facility] Procedures Code Procedure Name Date Entry Date Standard Desc ription CPT-93191 PT/INR - LAB USE ONLY 13:32:49 OXYACETYLENE CUTTER CPT-51375 Venipuncture Draw Fee 13:32:49 OXYACETYLENE CUTTER CPT-71044 PT/INR - LAB USE ONLY 10:34:49 OXYACETYLENE CUTTER CPT-79057 Venipuncture Draw Fee 10:34:48 OXYACETYLENE CUTTER CPT-66356 PT/INR - LAB USE ONLY 09:22:03 OXYACETYLENE CUTTER CPT-17642 Venipuncture Draw Fee 09:22:02 OXYACETYLENE CUTTER CPT-59495 Hemoccult IFOBT - LAB USE ONLY 10:27:22 CDT CPT-75298 Venipuncture Draw Fee 08:27:08 CDT CPT-66488 Liver Profile - LAB USE ONLY 08:27:07 CDT 2 CPT-51650 Microalbumin - LAB USE ONLY 08:27:07 CDT 20 25/05/09 CPT-21863 PT/INR - LAB USE ONLY 08:27:07 CDT CPT-81673 HGBA1C - LAB USE ONLY 08:27:07 CDT CPT-81595 CBC - LAB USE ONLY 08:27:07 CDT CPT-70620 Venipuncture Draw Fee 11:09:14 CDT CPT-72042 Venipuncture Draw Fee 08:32:21 OXYACETYLENE CUTTER CPT-21716 Venipuncture Draw Fee 09:38:56 OXYACETYLENE CUTTER CPT-82451 No Charge Offi Visit 21:36:07 CDT 1 CPT-32613 Venipuncture Draw Fee 10:13:28 OXYACETYLENE CUTTER CPT-12793 Venipuncture Draw Fee 08:31:11 CDT CPT-27181 Aspir/Inject Med Joint 18:17:28 CDT CPT-46805 Venipuncture Draw Fee 10:13:30 CDT CPT-49063 Venipuncture Draw Fee 08:31:43 OXYACETYLENE CUTTER CPT-JTINJ Joint Injection 18:34:50 CDT CPT-57684 Knee 3V 12:25:09 CDT CPT-80020 Venipuncture Draw Fee 12:15:57 CDT CPT-060 Medical Surveillance Exam 21:31:43 CDT 2011 CPT-02140 Venipuncture Draw Fee 08:32:05 OXYACETYLENE CUTTER CPT-OV Office Visit 18:19:06 CDT
--- OUTSIDE RECORDS SUMMARY | 2020-01-18 12:43 | XMS REPORT | Clinical Summary ---
Author Author Admin, Mitch Leon Organization [facility] Address Unknown Phone Allergies, Adverse Reactions, [...] vessel, [place] or graft EDEMA 782.3 Active Mitch Kilpatrick [...] 1/2 tab tid 3 days MECLIZINE HCL 90615900286 No Longer Active Corey SEGURA Active ALLOPURINOL 300 MG TABS Take 1 tablet by mouth daily 2 ALLOPURINOL 21246077625 No Longer Active Corey SEGURA Activ e CLONIDINE HCL 0.1 MG TABS 1 po bid 7 days, then 1/2 tab po b id 7 days CLONIDINE HCL 67865568789 No Longer Active Corey SEGURA Active COUMADIN 5 MG TABS 1 tab PO daily WARFARIN SODIUM 89045307371 Active Mitch Urbina DO Active COUMADIN 4 MG TABS 1 tablet daily WARFARIN SODI UM 28881550707 No Longer Active Corey SEGURA Active POLYTRIM 54178-8.1 UNIT/ML-% SOLN 1 drop in affected e ye every 3 hours while awake x 7 days POLYMYXIN B-TRIMETHOPRIM 95169694012 N o Longer Active Corey SEGURA Active LOSARTAN POTASSIUM-HCTZ 100-12.5 MG TABS 1 by mouth da rocky for high blood pressure LOSARTAN POTASSIUM-HCTZ 85848115614 Active Stephy Urbina DO Active LISINOPRIL-HYDROCHLOROTHIAZIDE 20-12.5 MG TABS 1 tab by mouth da rocky LISINOPRIL-HYDROCHLOROTHIAZIDE 30840171670 No Longer Active Mitch luis DO Active LISINOPRIL 20 MG TABS 1 tab po at HS LISINOPRIL 96860336170 No Longer Active Mitch Urbina DO Active COUMADIN 5 MG TABS 1 by mouth every other day WARFARIN SODIUM 43162503848 No Longer Active Mitch Urbina DO Active COUMADIN 6 MG TABS 1 by mouth every other day WARFARIN SODIUM 11613096105 No Longer Active Mitch Urbina DO Active COLCRYS 0.6 MG TABS 1 tab qid prn gout COLCHICINE 40201486048 Active Mitch Urbina DO Active SIMVASTATIN 40 MG TABS 1 tab daily at bedtime S IMVASTATIN 74769059843 Active Mitch Urbina DO Active SIMVASTATIN 20 MG TABS 1 tab daily at bedtime S IMVASTATIN 51843035168 No Longer Active Mitch Urbina DO Active LOVENOX 100 MG/ML SC SOLN One injection twice a day 09/15/15 ENOXAPARIN SODIUM 61937847745 No Longer Active Carmine Navarrete ctive JANUVIA 50 MG TABS Take one by mouth daily DIEGO GLIPTIN PHOSPHATE 92538110351 Active Mitch Urbina DO Active JANUVIA 100 MG TABS 1/2 by mouth every day DIEGO GLIPTIN PHOSPHATE 24366051686 No Longer Active Bijal Philipp RN Active METFORMIN HCL 500 MG TABS 2 by mouth twice daily METFORMIN HCL 52339566654 Active Curly Coker MD Active GLIMEPIRIDE 4 MG TABS 1 tab po bid GLIMEPIRIDE 981038 28867 Active Mitch Urbina DO Active COLCRYS 0.6 MG TABS 1 po q 6 hours prn gout pain 03/02 COLCHICINE 72587865866 No Longer Active Camila Hugh Active LISINOPRIL 5 MG TABS 1 by mouth every day LISIN OPRIL 95607164587 No Longer Active Nguyenmolly Perez Active KLOR-CON 20 MEQ PACK Take one by mouth daily 8 POTASSIUM CHLORIDE 02374888164 No Longer Active Nguyen Perez Active FUROSEMIDE 40 MG TABS 1 by mouth daily FUROSEMI DE 78082439656 No Longer Active Nguyen Perez Active PROVIGIL 200 MG TABS 1/2 tab po q day MODAFINIL 80637 667564 Active Mitch Urbina DO Active PROVIGIL 100 MG TABS Take one by mouth daily MO DAFINIL 69847084926 No Longer Active Mitch Urbina DO Active BACTRIM DS 800-160 MG TAB 1 tab by mouth twice daily TRIMETHOPRIM-SULFAMETHOXAZOLE 22561956286 No Longer Active Renan Hays MD Active FAMOTIDINE 20 MG TABS by mouth twice a day FAMOTI DINE 69792152342 Active Mitch Urbina DO Active ADULT ASPIRIN LOW STRENGTH 81 MG TBDP 1 by mouth every daily ASPIRIN 81907611874 Active Mitch Urbina DO Active METOPROLOL TARTRATE 50 MG TABS 1 by mouth twice daily METOPROLOL TARTRATE 35907110151 Active Mitch Urbina DO Active BACTRIM DS 800-160 MG TAB 1 tab by mouth twice daily 2 BACTRIM DS 800-160 MG TAB TRIMETHOPRIM-SULFAMETHOXAZOLE Inac tive PROVIGIL 100 MG TABS Take one by mouth daily 4 PROVIGIL 100 MG TABS 403945 MODAFINIL Inactive FUROSEMIDE 40 MG TABS 1 by mouth daily FU ROSEMIDE 40 MG TABS 872803 FUROSEMIDE Inactive KLOR-CON 20 MEQ PACK Take one by mouth daily 8 KLOR-CON 20 MEQ PACK 778886 POTASSIUM CHLORIDE Inactive LISINOPRIL 5 MG TABS 1 by mouth every day LISINOPRIL 5 MG TABS 698266 LISINOPRIL Inactive COLCRYS 0.6 MG TABS 1 po q 6 hours prn gout pain 03/02 COLCRYS 0.6 MG TABS COLCHICINE Inactive JANUVIA 100 MG TABS 1/2 by mouth every day JANUVI A 100 MG TABS SITAGLIPTIN PHOSPHATE Inactive SIMVASTATIN 20 MG TABS 1 tab daily at bedtime SIMVASTATIN 20 MG TABS 309362 SIMVASTATIN Inactive COUMADIN 6 MG TABS 1 by mouth every other day COUMADIN 6 MG TABS 609711 WARFARIN SODIUM Inactive COUMADIN 5 MG TABS 1 by mouth every other day COUMADIN 5 MG TABS 383534 WARFARIN SODIUM Inactive LISINOPRIL 20 MG TABS 1 tab po at HS KOKI NOPRIL 20 MG TABS 574620 LISINOPRIL Inactive LISINOPRIL-HYDROCHLOROTHIAZIDE 20-12.5 MG TABS 1 tab by mouth da rocky LISINOPRIL-HYDROCHLOROTHIAZIDE 20-12.5 MG TABS 754928 LISINOPRIL-HYDROCHLOROTHIAZIDE Inactive POLYTRIM 20361-9.1 UNIT/ML-% SOLN 1 drop in affected e ye every 3 hours while awake x 7 days POLYTRIM 26044-0.1 UNIT/ML-% SOLN 28585 7 POLYMYXIN B-TRIMETHOPRIM Inactive COUMADIN 4 MG TABS 1 tablet daily COUMADIN 4 MG TABS 922836 WARFARIN SODIUM Inactive CLONIDINE HCL 0.1 MG TABS 1 po bid 7 days, then 1/2 tab po b id 7 days CLONIDINE HCL 0.1 MG TABS 280725 CLONIDINE HCL I nactive ALLOPURINOL 300 MG TABS Take 1 tablet by mouth daily 2 ALLOPURINOL 300 MG TABS 665096 ALLOPURINOL Inactive MECLIZINE HCL 25 MG TAB 1 po tid 3 days, then 1/2 tab tid 3 days MECLIZINE HCL 25 MG TAB 616082 MECLIZINE HCL Inactive LOVENOX 100 MG/ML SC SOLN One injection twice a day 09/15/15 LOVENOX 100 MG/ML SC SOLN 487990 ENOXAPARIN SODIUM Inactive Vital Signs Date Name [...] 6.9 % 4.3-6.0 cholesterol, serum 108 mg/dL 860-239 2915/11/01 triglyceride, serum, fasting 112 mg/dL 30-200 HDL [...] 1.0-3.5 Encounters Code Encounter Date Provider Facility CPT-49528 Level 3 Est. Patient 13:53:19 ENVIRONMENTAL AUDITOR Mitch luis [facility] CPT-22606 Level 3 Est. Patient 19:19:37 ENVIRONMENTAL AUDITOR Mitch W Nona luis [facility] CPT-79188 Level 3 Est. Patient 13:25:53 ENVIRONMENTAL AUDITOR Tavo toure MD [facility] CPT-81289 Level 3 Est. Patient 18:17:28 CDT Mitch luis [facility] CPT-08532 Level 3 Est. Patient 15:22:57 CDT Mitch W L janelle [facility] CPT-90751 Level 3 Est. Patient 18:21:50 CDT Mitch W L janelle [facility] CPT-75607 Level 3 Est. Patient 18:20:38 CDT Mitch W L janelle [facility] CPT-71572 Level 3 Est. Patient 15:37:55 CDT Mitch W L janelle [facility] CPT-81999 Level 2 Est. Patient 15:54:44 CDT Carmine benton MD [facility] CPT-46996 Level 3 Est. Patient 21:46:01 ENVIRONMENTAL AUDITOR Mitch luis [facility] CPT-82939 Level 3 Est. Patient 22:15:50 CDT Mitch luis [facility] CPT-12447 Level 3 Est. Patient 10:48:15 CDT Mitch luis [facility] CPT-86495 Level 3 Est. Patient 23:20:57 CDT Tavo toure MD [facility] CPT-71295 Level 3 Est. Patient 16:26:13 CDT Mitch luis [facility] Procedures Code Procedure Name Date Entry Date Standard Desc ription CPT-05192 Venipuncture Draw Fee 10:13:28 ENVIRONMENTAL AUDITOR CPT-90415 Venipuncture Draw Fee 08:31:11 CDT CPT-65174 Aspir/Inject Med Joint 18:17:28 CDT CPT-94702 Venipuncture Draw Fee 10:13:30 CDT CPT-86050 Venipuncture Draw Fee 08:31:43 ENVIRONMENTAL AUDITOR CPT-JTINJ Joint Injection 18:34:50 CDT CPT-70734 Knee 3V 12:25:09 CDT CPT-23420 Venipuncture Draw Fee 12:15:57 CDT CPT-060 Medical Surveillance Exam 21:31:43 CDT 2011 CPT-19924 Venipuncture Draw Fee 08:32:05 ENVIRONMENTAL AUDITOR CPT-OV Office Visit 18:19:06 CDT
--- OUTSIDE RECORDS SUMMARY | 2020-01-18 12:43 | XMS REPORT | Clinical Summary ---
Author Author Admin, Mitch Leon Organization [facility] Address Unknown Phone Allergies, Adverse Reactions, Alerts [...] Coronary atherosclerosis of unspecified type of vessel, [place] or graft EDEMA 782.3 Active Mitch Kilpatrick [...] 1/2 tab tid 3 days MECLIZINE HCL 48032175798 No Longer Active Corey SEGURA Active ALLOPURINOL 300 MG TABS Take 1 tablet by mouth daily 2 ALLOPURINOL 34696912727 No Longer Active Corey SEGURA Activ e CLONIDINE HCL 0.1 MG TABS 1 po bid 7 days, then 1/2 tab po b id 7 days CLONIDINE HCL 84873065643 No Longer Active Corey SEGURA Active COUMADIN 5 MG TABS 1 tab PO daily WARFARIN SODIUM 35749576632 Active Mitch Urbina DO Active COUMADIN 4 MG TABS 1 tablet daily WARFARIN SODI UM 04181301354 No Longer Active Corey SEGURA Active POLYTRIM 87292-0.1 UNIT/ML-% SOLN 1 drop in affected e ye every 3 hours while awake x 7 days POLYMYXIN B-TRIMETHOPRIM 67510891126 N o Longer Active Corey SEGURA Active LOSARTAN POTASSIUM-HCTZ 100-12.5 MG TABS 1 by mouth [place] for high blood pressure LOSARTAN POTASSIUM-HCTZ 19214656176 Active Stephy Urbina DO Active LISINOPRIL-HYDROCHLOROTHIAZIDE 20-12.5 MG TABS 1 tab by mouth da rocky LISINOPRIL-HYDROCHLOROTHIAZIDE 03402604564 No Longer Active Mitch luis DO Active LISINOPRIL 20 MG TABS 1 tab po at HS LISINOPRIL 73401468432 No Longer Active Mitch Urbina DO Active COUMADIN 5 MG TABS 1 by mouth every other day WARFARIN SODIUM 82783007522 No Longer Active Mitch Urbina DO Active COUMADIN 6 MG TABS 1 by mouth every other day WARFARIN SODIUM 43255703749 No Longer Active Mitch Urbina DO Active COLCRYS 0.6 MG TABS 1 tab qid prn gout COLCHICINE 73904971075 Active Mitch Urbina DO Active SIMVASTATIN 40 MG TABS 1 tab daily at bedtime S IMVASTATIN 08887079021 Active Mitch Urbina DO Active SIMVASTATIN 20 MG TABS 1 tab daily at bedtime S IMVASTATIN 91054353259 No Longer Active Mitch Urbina DO Active LOVENOX 100 MG/ML SC SOLN One injection twice a day 09/15/15 ENOXAPARIN SODIUM 71591715883 No Longer Active Carmine Navarrete ctive JANUVIA 50 MG TABS Take one by mouth daily DIEGO GLIPTIN PHOSPHATE 81314140560 Active Mitch Urbina DO Active JANUVIA 100 MG TABS 1/2 by mouth every day DIEGO GLIPTIN PHOSPHATE 83045061278 No Longer Active Bijal Philipp RN Active METFORMIN HCL 500 MG TABS 2 by mouth twice daily METFORMIN HCL 70388103717 Active Curly Coker MD Active GLIMEPIRIDE 4 MG TABS 1 tab po bid GLIMEPIRIDE 758159 83851 Active Mitch Urbina DO Active COLCRYS 0.6 MG TABS 1 po q 6 hours prn gout pain 03/02 COLCHICINE 21086556174 No Longer Active Camila Hugh Active LISINOPRIL 5 MG TABS 1 by mouth every day LISIN OPRIL 97086443716 No Longer Active Nguyenmolly Perez Active KLOR-CON 20 MEQ PACK Take one by mouth daily 8 POTASSIUM CHLORIDE 21978220915 No Longer Active Nguyen Perez Active FUROSEMIDE 40 MG TABS 1 by mouth daily FUROSEMI DE 15473613786 No Longer Active Nguyen Perez Active PROVIGIL 200 MG TABS 1/2 tab po q day MODAFINIL 47754 131093 Active Mitch Urbina DO Active PROVIGIL 100 MG TABS Take one by mouth daily MO DAFINIL 82687307938 No Longer Active Mitch Urbina DO Active BACTRIM DS 800-160 MG TAB 1 tab by mouth twice daily TRIMETHOPRIM-SULFAMETHOXAZOLE 29648888760 No Longer Active Renan Hays MD Active FAMOTIDINE 20 MG TABS by mouth twice a day FAMOTI DINE 04352264444 Active Mitch Urbina DO Active ADULT ASPIRIN LOW STRENGTH 81 MG TBDP 1 by mouth every daily ASPIRIN 88747593936 Active Mitch Urbina DO Active METOPROLOL TARTRATE 50 MG TABS 1 by mouth twice daily METOPROLOL TARTRATE 68727270314 Active Mitch Urbina DO Active BACTRIM DS 800-160 MG TAB 1 tab by mouth twice daily 2 BACTRIM DS 800-160 MG TAB TRIMETHOPRIM-SULFAMETHOXAZOLE Inac tive PROVIGIL 100 MG TABS Take one by mouth daily 4 PROVIGIL 100 MG TABS 108433 MODAFINIL Inactive FUROSEMIDE 40 MG TABS 1 by mouth daily FU ROSEMIDE 40 MG TABS 587104 FUROSEMIDE Inactive KLOR-CON 20 MEQ PACK Take one by mouth daily 8 KLOR-CON 20 MEQ PACK 228306 POTASSIUM CHLORIDE Inactive LISINOPRIL 5 MG TABS 1 by mouth every day LISINOPRIL 5 MG TABS 876533 LISINOPRIL Inactive COLCRYS 0.6 MG TABS 1 po q 6 hours prn gout pain 03/02 COLCRYS 0.6 MG TABS COLCHICINE Inactive JANUVIA 100 MG TABS 1/2 by mouth every day JANUVI A 100 MG TABS SITAGLIPTIN PHOSPHATE Inactive SIMVASTATIN 20 MG TABS 1 tab daily at bedtime SIMVASTATIN 20 MG TABS 923050 SIMVASTATIN Inactive COUMADIN 6 MG TABS 1 by mouth every other day COUMADIN 6 MG TABS 822265 WARFARIN SODIUM Inactive COUMADIN 5 MG TABS 1 by mouth every other day COUMADIN 5 MG TABS 534805 WARFARIN SODIUM Inactive LISINOPRIL 20 MG TABS 1 tab po at HS KOKI NOPRIL 20 MG TABS 183551 LISINOPRIL Inactive LISINOPRIL-HYDROCHLOROTHIAZIDE 20-12.5 MG TABS 1 tab by mouth da rocky LISINOPRIL-HYDROCHLOROTHIAZIDE 20-12.5 MG TABS 476104 LISINOPRIL-HYDROCHLOROTHIAZIDE Inactive POLYTRIM 39686-8.1 UNIT/ML-% SOLN 1 drop in affected e ye every 3 hours while awake x 7 days POLYTRIM 33787-8.1 UNIT/ML-% SOLN 28867 7 POLYMYXIN B-TRIMETHOPRIM Inactive COUMADIN 4 MG TABS 1 tablet daily COUMADIN 4 MG TABS 532883 WARFARIN SODIUM Inactive CLONIDINE HCL 0.1 MG TABS 1 po bid 7 days, then 1/2 tab po b id 7 days CLONIDINE HCL 0.1 MG TABS 078344 CLONIDINE HCL I nactive ALLOPURINOL 300 MG TABS Take 1 tablet by mouth daily 2 ALLOPURINOL 300 MG TABS 816927 ALLOPURINOL Inactive MECLIZINE HCL 25 MG TAB 1 po tid 3 days, then 1/2 tab tid 3 days MECLIZINE HCL 25 MG TAB 305415 MECLIZINE HCL Inactive LOVENOX 100 MG/ML SC SOLN One injection twice a day 09/15/15 LOVENOX 100 MG/ML SC SOLN 546140 ENOXAPARIN SODIUM Inactive Vital Signs Date Name [...] 6.9 % 4.3-6.0 cholesterol, serum 108 mg/dL 458-083 0577/11/01 triglyceride, serum, fasting 112 mg/dL 30-200 HDL [...] 1.0-3.5 Encounters Code Encounter Date Provider Facility CPT-95779 Level 3 Est. 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 Patient 19:19:37 CALENDER WORKER HELPER Mitch W Nona luis [facility] CPT-47489 Level 3 Est. Patient 13:25:53 CALENDER WORKER HELPER Tavo toure MD [facility] CPT-95662 Level 3 Est. Patient 18:17:28 CDT Mitch luis [facility] CPT-08721 Level 3 Est. Patient 15:22:57 CDT Mitch W L janelle [facility] CPT-76652 Level 3 Est. Patient 18:21:50 CDT Mitch W L janelle [facility] CPT-56637 Level 3 Est. Patient 18:20:38 CDT Mitch W L janelle [facility] CPT-37314 Level 3 Est. Patient 15:37:55 CDT Mitch W L janelle [facility] CPT-05210 Level 2 Est. Patient 15:54:44 CDT Carmine benton MD [facility] CPT-50999 Level 3 Est. Patient 21:46:01 CALENDER WORKER HELPER Mitch luis [facility] CPT-57157 Level 3 Est. Patient 22:15:50 CDT Mitch luis [facility] CPT-52449 Level 3 Est. Patient 10:48:15 CDT Mitch luis [facility] CPT-63129 Level 3 Est. Patient 23:20:57 CDT Tavo toure MD [facility] CPT-69390 Level 3 Est. Patient 16:26:13 CDT Mitch luis [facility] Procedures Code Procedure Name Date Entry Date Standard Desc ription CPT-02603 Venipuncture Draw Fee 10:13:28 CALENDER WORKER HELPER CPT-11389 Venipuncture Draw Fee 08:31:11 CDT CPT-65915 Aspir/Inject Med Joint 18:17:28 CDT CPT-25008 Venipuncture Draw Fee 10:13:30 CDT CPT-56494 Venipuncture Draw Fee 08:31:43 CALENDER WORKER HELPER CPT-JTINJ Joint Injection 18:34:50 CDT CPT-41607 Knee 3V 12:25:09 CDT CPT-97491 Venipuncture Draw Fee 12:15:57 CDT CPT-060 Medical Surveillance Exam 21:31:43 CDT 2011 CPT-33610 Venipuncture Draw Fee 08:32:05 CALENDER WORKER HELPER CPT-OV Office Visit 18:19:06 CDT
--- OUTSIDE RECORDS SUMMARY | 2020-01-18 12:43 | XMS REPORT | Clinical Summary ---
Author Author Admin, Mitch Leon Organization [facility] [employer] Address Unknown Phone Unavailable Allergies, Adverse [...] atherosclerosis of unspecified type of vessel, apache or graft EDEMA 782.3 Resolved Mitch Urbina [...] DO Cough, chronic ICD-786.2 Inactive Mitch Arnol Ubrina D O Sebaceous cyst, infected ICD-706.2 Inactive Mitch Urbina DO Cellulitis ICD-682.9 Inactive Mitch Urbina DO 10/23 Medication List Medication Instructions Start Date Stop Date Generic Name NDC Status Provider Patient Instruction GLIMEPIRIDE 2 MG ORAL TABS 1 po BID GLIMEPIRIDE 18830 920262 Active Ana Wallace Active KEFLEX 500 MG CAP 1 po qid CEPHALEXIN 162085093 20 No Longer Active Mitch Urbina DO Active LOSARTAN POTASSIUM 100 MG TABS 1 pill by mouth daily, for bl ood pressure LOSARTAN POTASSIUM 00771302287 Active Ana Wallace Active AMLODIPINE BESYLATE 5 MG TABS 1 tablet by mouth daily AMLODIPINE BESYLATE 31730011464 No Longer Active Joe Williamson APRN Active MITIGARE 0.6 MG ORAL CAPS 2 capsules at onset of gout pain, then take one capsule at 1 hour if symptoms persist. COLCHICINE 59 760120229 Active Mitch Urbina DO Active COUMADIN 1 MG TAB 2 tabs orally daily with the 5mg tab to equal 7mg daily WARFARIN SODIUM 47186846943 Active Ana Wallace Active COLCRYS 0.6 MG TABS 1 tab qid prn gout COLCHICINE 67878084489 Active Norma Cazares Active INVOKANA 100 MG ORAL TABS 1 tablet orally daily CANAGLIFLOZIN 73971320250 Active Mitch Urbina DO Active MINOXIDIL 2.5 MG TABS 1 tablet daily for high blood pressure 10/23 MINOXIDIL 89236210191 Active Mitch Urbina DO Active MECLIZINE HCL 25 MG TAB 1 po tid 3 days, then 1/2 tab tid 3 days MECLIZINE HCL 48388304859 No Longer Active Corey SEGURA Active ALLOPURINOL 300 MG TABS Take 1 tablet by mouth daily 2 ALLOPURINOL 70189632913 No Longer Active Corey SEGURA Activ e CLONIDINE HCL 0.1 MG TABS 1 po bid 7 days, then 1/2 tab po b id 7 days CLONIDINE HCL 49701723687 No Longer Active Corey SEGURA Active COUMADIN 5 MG TABS 1 tab PO daily WARFARIN SODIUM 97845463031 Active Mitch Urbina DO Active COUMADIN 4 MG TABS 1 tablet daily WARFARIN SODI UM 18015667837 No Longer Active Corey SEGURA Active POLYTRIM 29483-5.1 UNIT/ML-% SOLN 1 drop in affected e ye every 3 hours while awake x 7 days POLYMYXIN B-TRIMETHOPRIM 06664189273 N o Longer Active Corey SEGURA Active LOSARTAN POTASSIUM-HCTZ 100-12.5 MG TABS 1 by mouth da rocky for high blood pressure LOSARTAN POTASSIUM-HCTZ 16550505878 No Longer A ctive Mitch Urbina DO Active LISINOPRIL-HYDROCHLOROTHIAZIDE 20-12.5 MG TABS 1 tab by mouth da rocky LISINOPRIL-HYDROCHLOROTHIAZIDE 12935019308 No Longer Active Mtich luis DO Active LISINOPRIL 20 MG TABS 1 tab po at HS LISINOPRIL 47709197624 No Longer Active Mitch Urbina DO Active COUMADIN 5 MG TABS 1 by mouth every other day WARFARIN SODIUM 99617282642 No Longer Active Mitch Urbina DO Active COUMADIN 6 MG TABS 1 by mouth every other day WARFARIN SODIUM 49303294828 No Longer Active Mitch Urbina DO Active SIMVASTATIN 40 MG TABS 1 tab daily at bedtime S IMVASTATIN 10261712611 Active Mitch Urbina DO Active SIMVASTATIN 20 MG TABS 1 tab daily at bedtime S IMVASTATIN 55170445667 No Longer Active Mitch Urbina DO Active LOVENOX 100 MG/ML SC SOLN One injection twice a day 09/15/15 ENOXAPARIN SODIUM 81006993070 No Longer Active Carmine Yusuf MD A ctive JANUVIA 50 MG TABS Take one by mouth daily DIEGO GLIPTIN PHOSPHATE 70534995986 Active Mitch Urbina DO Active JANUVIA 100 MG TABS 1/2 by mouth every day DIEGO GLIPTIN PHOSPHATE 86771810849 No Longer Active Bijal Segal RN Active METFORMIN HCL 500 MG TABS 2 by mouth twice daily METFORMIN HCL 93614079652 Active Mitch Urbina DO Active COLCRYS 0.6 MG TABS 1 po q 6 hours prn gout pain 03/02 COLCHICINE 14256848309 No Longer Active Camila Reese Active LISINOPRIL 5 MG TABS 1 by mouth every day LISIN OPRIL 04314409697 No Longer Active Nguyenmac Perez Active KLOR-CON 20 MEQ PACK Take one by mouth daily 8 POTASSIUM CHLORIDE 82034732116 No Longer Active Nguyen Ana Active FUROSEMIDE 40 MG TABS 1 by mouth daily FUROSEMI DE 56108621987 No Longer Active Nguyen Perez Active PROVIGIL 200 MG TABS 1/2 tab po q day MODAFINIL 62273 357981 Active Mitch Urbina DO Active PROVIGIL 100 MG TABS Take one by mouth daily MO DAFINIL 22535851077 No Longer Active Mitch Urbina DO Active BACTRIM DS 800-160 MG TAB 1 tab by mouth twice daily 2 TRIMETHOPRIM-SULFAMETHOXAZOLE 63986866048 No Longer Active Renan Hays MD Active FAMOTIDINE 20 MG TABS by mouth twice a day FAMOTI DINE 47857069897 Active Mitch Urbina DO Active ADULT ASPIRIN LOW STRENGTH 81 MG TBDP 1 by mouth every daily ASPIRIN 57174403006 Active Mitch Urbina DO Active METOPROLOL TARTRATE 50 MG TABS 1 by mouth twice daily METOPROLOL TARTRATE 45774808993 Active Mitch Urbina DO Active ALLOPURINOL 300 MG TABS Take 1 tablet by mouth daily 2 ALLOPURINOL 300 MG TABS 591154 ALLOPURINOL Inactive BACTRIM DS 800-160 MG TAB 1 tab by mouth twice daily 2 BACTRIM DS 800-160 MG TAB 481720 TRIMETHOPRIM-SULFAMETHOXAZOLE Inac tive CLONIDINE HCL 0.1 MG TABS 1 po bid 7 days, then 1/2 tab po b id 7 days CLONIDINE HCL 0.1 MG TABS 841251 CLONIDINE HCL I nactive COUMADIN 5 MG TABS 1 by mouth every other day COUMADIN 5 MG TABS 801665 WARFARIN SODIUM Inactive FUROSEMIDE 40 MG TABS 1 by mouth daily FU ROSEMIDE 40 MG TABS 002598 FUROSEMIDE Inactive KEFLEX 500 MG CAP 1 po qid KEFLEX 500 MG CAP 30 9114 CEPHALEXIN Inactive KLOR-CON 20 MEQ PACK Take one by mouth daily 8 KLOR-CON 20 MEQ PACK 0930006 POTASSIUM CHLORIDE Inactive LISINOPRIL 20 MG TABS 1 tab po at HS KOKI NOPRIL 20 MG TABS 156412 LISINOPRIL Inactive POLYTRIM 78123-0.1 UNIT/ML-% SOLN 1 drop in affected e ye every 3 hours while awake x 7 days POLYTRIM 76686-3.1 UNIT/ML-% SOLN 94869 7 POLYMYXIN B-TRIMETHOPRIM Inactive AMLODIPINE BESYLATE 5 MG TABS 1 tablet by mouth daily AMLODIPINE BESYLATE 5 MG TABS 806869 AMLODIPINE BESYLATE Inactive LISINOPRIL 5 MG TABS 1 by mouth every day LISINOPRIL 5 MG TABS 958251 LISINOPRIL Inactive LISINOPRIL-HYDROCHLOROTHIAZIDE 20-12.5 MG TABS 1 tab by mouth da rocky LISINOPRIL-HYDROCHLOROTHIAZIDE 20-12.5 MG TABS 642663 LISINOPRIL-HYDROCHLOROTHIAZIDE Inactive SIMVASTATIN 20 MG TABS 1 tab daily at bedtime SIMVASTATIN 20 MG TABS 208080 SIMVASTATIN Inactive COUMADIN 4 MG TABS 1 tablet daily COUMADIN 4 MG TABS 316262 WARFARIN SODIUM Inactive MECLIZINE HCL 25 MG TAB 1 po tid 3 days, then 1/2 tab tid 3 days MECLIZINE HCL 25 MG TAB 872827 MECLIZINE HCL Inactive COUMADIN 6 MG TABS 1 by mouth every other day COUMADIN 6 MG TABS 946074 WARFARIN SODIUM Inactive LOVENOX 100 MG/ML SC SOLN One injection twice a day 09/15/15 LOVENOX 100 MG/ML SC SOLN 018546 ENOXAPARIN SODIUM Inactive PROVIGIL 100 MG TABS Take one by mouth daily 4 PROVIGIL 100 MG TABS 201055 MODAFINIL Inactive JANUVIA 100 MG TABS 1/2 by mouth every day JANUVI A 100 MG TABS SITAGLIPTIN PHOSPHATE Inactive COLCRYS 0.6 MG TABS 1 po q 6 hours prn gout pain 03/02 COLCRYS 0.6 MG TABS 391244 COLCHICINE Inactive Vital Signs Date Name Value [...] - Chem istry sodium, serum 139 mmol/L 671-560 6919/07/17 potassium, serum 4.2 mmol/L 3.5-5.2 chloride, serum 102 mmol/L 98-107 carbon dioxide, venous blood 28.9 mmol/L 21.0-32 .0 blood glucose 211 mg/dL 65-110 calcium, serum 10.6 mg/dL 8.5-10.1 urea nitrogen, blood 29 mg/dL 7-18 creatinine, serum 1.24 mg/dL 0.60-1.30 sodium, serum 141 mmol/L 443-196 1776/08/07 potassium, serum 4.5 mmol/L 3.5-5.2 chloride, serum [...] ... - Chemistry sodium, serum 144 mmol/L 496-979 3005/06/12 carbon dioxide, venous blood 26.6 mmol/L 21.0-32 [...] 1.0-3.5 Encounters Code Encounter Date Provider Facility CPT-47116 Level 3 Est. Patient 18:25:53 CDT Mitch luis [facility] CPT-25498 Level 3 Est. Patient 19:43:34 CDT Mitch luis [facility] CPT-20844 Level 4 Est. Patient 09:30:18 CDT Mitch luis [facility] CPT-26814 Level 3 Est. Patient 15:10:14 CDT Joe Jason kamara [facility] CPT-31483 Level 3 Est. Patient 15:03:46 CDT Joe Jason kamara [facility] CPT-82895 Level 3 Est. Patient 14:21:06 CDT Mitch luis [facility] CPT-28985 Level 3 Est. Patient 14:52:06 CDT Joe Jason kamara [facility] CPT-16270 Level 3 Est. 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 Patient 09:37:15 CDT Mitch luis [facility] CPT-82016 Level 3 Est. Patient 17:01:00 BOILER TECHNICIAN Mitch luis [facility] CPT-85729 Level 3 Est. Patient 13:53:19 BOILER TECHNICIAN Mitch luis [facility] CPT-15568 Level 3 Est. Patient 19:19:37 BOILER TECHNICIAN Mitch luis [facility] CPT-02380 Level 3 Est. Patient 13:25:53 BOILER TECHNICIAN Tavo toure MD [facility] CPT-06613 Level 3 Est. Patient 18:17:[address] [facility] CPT-45659 Level 3 Est. Patient 15:22:57 CDT Mitch luis [facility] CPT-34508 Level 3 Est. Patient 18:21:50 CDT Mitch W L janelle [facility] CPT-20489 Level 3 Est. Patient 18:20:38 CDT Mitch W L janelle [facility] CPT-99222 Level 3 Est. Patient 15:37:55 CDT Mitch Ambrose L janelle [facility] CPT-78332 Level 2 Est. Patient 15:54:44 CDT Carmine benton MD [facility] CPT-55026 Level 3 Est. Patient 21:46:01 BOILER TECHNICIAN Mitch luis [facility] CPT-32646 Level 3 Est. Patient 22:15:[address] [facility] CPT-58754 Level 3 Est. Patient 10:48:[address] [facility] CPT-58864 Level 3 Est. Patient 23:20:57 CDT Tavo toure MD [facility] CPT-69550 Level 3 Est. Patient 16:26:13 CDT Mitch Arnol luis [facility] Procedures Code Procedure Name Date Entry Date Standard Desc ription CPT-49912 Venipuncture Draw Fee 09:26:17 CDT CPT-05883 PT/INR - LAB USE ONLY 13:32:49 BOILER TECHNICIAN CPT-55117 Venipuncture Draw Fee 13:32:49 BOILER TECHNICIAN CPT-54491 PT/INR - LAB USE ONLY 10:34:49 BOILER TECHNICIAN CPT-16883 Venipuncture Draw Fee 10:34:48 BOILER TECHNICIAN CPT-31809 PT/INR - LAB USE ONLY 09:22:03 BOILER TECHNICIAN CPT-86469 Venipuncture Draw Fee 09:22:02 BOILER TECHNICIAN CPT-00707 Hemoccult IFOBT - LAB USE ONLY 10:27:22 CDT CPT-67446 Venipuncture Draw Fee 08:27:08 CDT CPT-57979 Liver Profile - LAB USE ONLY 08:27:07 CDT 2 CPT-26311 Microalbumin - LAB USE ONLY 08:27:07 CDT 20 25/05/09 CPT-97967 PT/INR - LAB USE ONLY 08:27:07 CDT CPT-50629 HGBA1C - LAB USE ONLY 08:27:07 CDT CPT-26225 CBC - LAB USE ONLY 08:27:07 CDT CPT-66643 Venipuncture Draw Fee 11:09:14 CDT CPT-50724 Venipuncture Draw Fee 08:32:21 BOILER TECHNICIAN CPT-67701 Venipuncture Draw Fee 09:38:56 BOILER TECHNICIAN CPT-57912 No Charge Offi Visit 21:36:07 CDT 1 CPT-65493 Venipuncture Draw Fee 10:13:28 BOILER TECHNICIAN CPT-30864 Venipuncture Draw Fee 08:31:11 CDT CPT-02567 Aspir/Inject Med Joint 18:17:28 CDT CPT-37559 Venipuncture Draw Fee 10:13:30 CDT CPT-14637 Venipuncture Draw Fee 08:31:43 BOILER TECHNICIAN CPT-JTINJ Joint Injection 18:34:50 CDT CPT-22537 Knee 3V 12:25:09 CDT CPT-77831 Venipuncture Draw Fee 12:15:57 CDT CPT-060 Medical Surveillance Exam 21:31:43 CDT 2011 CPT-03001 Venipuncture Draw Fee 08:32:05 BOILER TECHNICIAN CPT-OV Office Visit 18:19:06 CDT
--- OUTSIDE RECORDS SUMMARY | 2020-01-18 12:43 | XMS REPORT | Clinical Summary ---
[...] gastrointestinal tract REACTIVE HYPOGLYCEMIA 251.2 Resolved Mitch Urbnia DO Hypoglycemia, unspecified GOUT, WRIST 274.9 Active Mitch Urbina DO Gout, unspecified LONG-TERM (CURRENT) USE OF ANTICOAGULANTS V58.61 Resol kylah Mitch Urbina DO Long-term (current) use of anticoagulant s HEALTH MAINTENANCE EXAM V70.0 Active Mitch Meraz DO Routine general medical examination at a health care facility CORONARY HEART DISEASE 414.00 Active Mitch Urbina DO Coronary atherosclerosis of unspecified type of vessel, [place] or graft EDEMA 782.3 Resolved Mitch Urbina [...] TABS 1 tab qid prn gout COLCHICINE 92587718434 Active Kathie Juan RPT,RMA Active COUMADIN 1 MG TAB take 1 tab daily with 5mg tab. ( 6mg total ) 2015 WARFARIN SODIUM 54802957019 Active Domi Rivera MA Acti ve INVOKANA 100 MG ORAL TABS 1 tablet orally daily CANAGLIFLOZIN 09497020049 Active Kathie Juan RPT,RMA Active MINOXIDIL 2.5 MG TABS 1 tablet daily for high blood pressure 10/23 MINOXIDIL 89646757920 Active Mitch Urbina DO Active AMLODIPINE BESYLATE 5 MG TABS 1 tablet by mouth daily AMLODIPINE BESYLATE 60226604624 Active Domi Rivera MA Active MECLIZINE HCL 25 MG TAB 1 po tid 3 days, then 1/2 tab tid 3 days MECLIZINE HCL 29906464963 No Longer Active Corey SEGURA Active ALLOPURINOL 300 MG TABS Take 1 tablet by mouth daily 2 ALLOPURINOL 59877454200 No Longer Active Corey SEGURA Activ e CLONIDINE HCL 0.1 MG TABS 1 po bid 7 days, then 1/2 tab po b id 7 days CLONIDINE HCL 67945681100 No Longer Active Corey SEGURA Active COUMADIN 5 MG TABS 1 tab PO daily WARFARIN SODIUM 30474623305 Active Domi Rivera MA Active COUMADIN 4 MG TABS 1 tablet daily WARFARIN SODI UM 19678278066 No Longer Active Corey SEGURA Active POLYTRIM 05918-1.1 UNIT/ML-% SOLN 1 drop in affected e ye every 3 hours while awake x 7 days POLYMYXIN B-TRIMETHOPRIM 47915492568 N o Longer Active Corey SEGURA Active LOSARTAN POTASSIUM-HCTZ 100-12.5 MG TABS 1 by mouth da rocky for high blood pressure LOSARTAN POTASSIUM-HCTZ 61465424003 Active Domi Rivera MA Active LISINOPRIL-HYDROCHLOROTHIAZIDE 20-12.5 MG TABS 1 tab by mouth da rocky LISINOPRIL-HYDROCHLOROTHIAZIDE 43601138170 No Longer Active Mitch luis DO Active LISINOPRIL 20 MG TABS 1 tab po at HS LISINOPRIL 03662192033 No Longer Active Mitch Urbina DO Active COUMADIN 5 MG TABS 1 by mouth every other day WARFARIN SODIUM 64503747208 No Longer Active Mitch Urbina DO Active COUMADIN 6 MG TABS 1 by mouth every other day WARFARIN SODIUM 16409055258 No Longer Active Mitch Urbina DO Active SIMVASTATIN 40 MG TABS 1 tab daily at bedtime S IMVASTATIN 30808113191 Active Domi Rivera MA Active SIMVASTATIN 20 MG TABS 1 tab daily at bedtime S IMVASTATIN 53273870236 No Longer Active Mitch Urbina DO Active LOVENOX 100 MG/ML SC SOLN One injection twice a day 09/15/15 ENOXAPARIN SODIUM 88588218452 No Longer Active Carmine Navarrete ctive JANUVIA 50 MG TABS Take one by mouth daily DIEGO GLIPTIN PHOSPHATE 64056315508 Active Domi Rivera MA Active JANUVIA 100 MG TABS 1/2 by mouth every day DIEGO GLIPTIN PHOSPHATE 40569191416 No Longer Active Bijal Segal RN Active METFORMIN HCL 500 MG TABS 2 by mouth twice daily METFORMIN HCL 65209455640 Active Mitch Urbina DO Active GLIMEPIRIDE 4 MG TABS 1 tab po bid GLIMEPIRIDE 526483 04230 Active Mitch Uribna DO Active COLCRYS 0.6 MG TABS 1 po q 6 hours prn gout pain 03/02 COLCHICINE 67538173006 No Longer Active Camila Reese Active LISINOPRIL 5 MG TABS 1 by mouth every day LISIN OPRIL 76167179564 No Longer Active Nguyenmolly Perez Active KLOR-CON 20 MEQ PACK Take one by mouth daily 8 POTASSIUM CHLORIDE 30240820259 No Longer Active Nguyenmolly Perez Active FUROSEMIDE 40 MG TABS 1 by mouth daily FUROSEMI DE 74653193314 No Longer Active Nguyenmolly Perez Active PROVIGIL 200 MG TABS 1/2 tab po q day MODAFINIL 66830 022891 Active Domi Rivera MA Active PROVIGIL 100 MG TABS Take one by mouth daily MO DAFINIL 61595275478 No Longer Active Mitch Urbina DO Active BACTRIM DS 800-160 MG TAB 1 tab by mouth twice daily 2 TRIMETHOPRIM-SULFAMETHOXAZOLE 67803100358 No Longer Active Renan Hays MD Active FAMOTIDINE 20 MG TABS by mouth twice a day FAMOTI DINE 84741539803 Active Mitch Urbina DO Active ADULT ASPIRIN LOW STRENGTH 81 MG TBDP 1 by mouth every daily ASPIRIN 92170416100 Active Mitch Urbina DO Active METOPROLOL TARTRATE 50 MG TABS 1 by mouth twice daily METOPROLOL TARTRATE 49660689648 Active Domi Rivera MA Active BACTRIM DS 800-160 MG TAB 1 tab by mouth twice daily 2 BACTRIM DS 800-160 MG TAB 016071 TRIMETHOPRIM-SULFAMETHOXAZOLE Inac tive PROVIGIL 100 MG TABS Take one by mouth daily 4 PROVIGIL 100 MG TABS 861715 MODAFINIL Inactive FUROSEMIDE 40 MG TABS 1 by mouth daily FU ROSEMIDE 40 MG TABS 021555 FUROSEMIDE Inactive KLOR-CON 20 MEQ PACK Take one by mouth daily 8 KLOR-CON 20 MEQ PACK 982199 POTASSIUM CHLORIDE Inactive LISINOPRIL 5 MG TABS 1 by mouth every day LISINOPRIL 5 MG TABS 145742 LISINOPRIL Inactive COLCRYS 0.6 MG TABS 1 po q 6 hours prn gout pain 03/02 COLCRYS 0.6 MG TABS 661265 COLCHICINE Inactive JANUVIA 100 MG TABS 1/2 by mouth every day JANUVI A 100 MG TABS SITAGLIPTIN PHOSPHATE Inactive SIMVASTATIN 20 MG TABS 1 tab daily at bedtime SIMVASTATIN 20 MG TABS 736526 SIMVASTATIN Inactive COUMADIN 6 MG TABS 1 by mouth every other day COUMADIN 6 MG TABS 020931 WARFARIN SODIUM Inactive COUMADIN 5 MG TABS 1 by mouth every other day COUMADIN 5 MG TABS 090487 WARFARIN SODIUM Inactive LISINOPRIL 20 MG TABS 1 tab po at HS KOKI NOPRIL 20 MG TABS 052569 LISINOPRIL Inactive LISINOPRIL-HYDROCHLOROTHIAZIDE 20-12.5 MG TABS 1 tab by mouth da rocky LISINOPRIL-HYDROCHLOROTHIAZIDE 20-12.5 MG TABS 150017 LISINOPRIL-HYDROCHLOROTHIAZIDE Inactive POLYTRIM 03807-5.1 UNIT/ML-% SOLN 1 drop in affected e ye every 3 hours while awake x 7 days POLYTRIM 38327-4.1 UNIT/ML-% SOLN 07751 7 POLYMYXIN B-TRIMETHOPRIM Inactive COUMADIN 4 MG TABS 1 tablet daily COUMADIN 4 MG TABS 669257 WARFARIN SODIUM Inactive CLONIDINE HCL 0.1 MG TABS 1 po bid 7 days, then 1/2 tab po b id 7 days CLONIDINE HCL 0.1 MG TABS 575289 CLONIDINE HCL I nactive ALLOPURINOL 300 MG TABS Take 1 tablet by mouth daily 2 ALLOPURINOL 300 MG TABS 331708 ALLOPURINOL Inactive MECLIZINE HCL 25 MG TAB 1 po tid 3 days, then 1/2 tab tid 3 days MECLIZINE HCL 25 MG TAB 879084 MECLIZINE HCL Inactive LOVENOX 100 MG/ML SC SOLN One injection twice a day 09/15/15 LOVENOX 100 MG/ML SC SOLN 331067 ENOXAPARIN SODIUM Inactive Vital Signs Date Name [...] 8.5-10.1 bilirubin, serum, total 0.70 mg/dL 0.00-1.00 potassium, serum 4.2 mmol/L 3.5-5.2 carbon dioxide, venous blood 25.4 mmol/L 21.0-32 .0 sodium, serum 136 mmol/L 136-145 Lab Report: [...] (INR) 2.0 1.0-3.5 international normalized ratio (INR) 2.2 1.0-3.5 prothrombin time (patient) 18.1 SECS s 11.1-13.4 prothrombin time (patient) 17.1 SECS s 11.1-13.4 international normalized ratio (INR) 2.0 1.0-3.5 prothrombin time (patient) 18.9 SECS s 11.1-13.4 international normalized ratio (INR) 2.4 1.0-3.5 Encounters Code Encounter Date Provider Facility CPT-01374 Level 3 Est. Patient 09:34:30 ASSISTANT CENTER MANAGER Mitch luis DO [facility] CPT-01253 Level 3 Est. Patient 09:37:15 CDT Mitch luis DO [facility] CPT-26653 Level 3 Est. Patient 17:01:00 ASSISTANT CENTER MANAGER Mitch luis DO [facility] CPT-20928 Level 3 Est. Patient 13:53:19 ASSISTANT CENTER MANAGER Mitch luis [facility] CPT-66687 Level 3 Est. Patient 19:19:37 ASSISTANT CENTER MANAGER Mitch luis [facility] CPT-31594 Level 3 Est. Patient 13:25:53 ASSISTANT CENTER MANAGER Tavo toure MD [facility] CPT-10616 Level 3 Est. Patient 18:17:28 CDT Mitch luis [facility] CPT-10952 Level 3 Est. Patient 15:22:57 CDT Mitch luis [facility] CPT-63229 Level 3 Est. Patient 18:21:50 CDT Mitch luis [facility] CPT-33946 Level 3 Est. Patient 18:20:38 CDT Mitch luis [facility] CPT-37726 Level 3 Est. Patient 15:37:55 CDT Mitch luis [facility] CPT-62017 Level 2 Est. Patient 15:54:44 CDT Carmine benton MD [facility] CPT-23687 Level 3 Est. Patient 21:46:01 ASSISTANT CENTER MANAGER Mitch luis [facility] CPT-33558 Level 3 Est. Patient 22:15:50 CDT Mitch luis [facility] CPT-09498 Level 3 Est. Patient 10:48:15 CDT Mitch luis [facility] CPT-63478 Level 3 Est. Patient 23:20:57 CDT Tavo toure MD [facility] CPT-43266 Level 3 Est. Patient 16:26:13 CDT Mitch Arnol luis [facility] Procedures Code Procedure Name Date Entry Date Standard Desc ription CPT-02470 Venipuncture Draw Fee 08:32:21 ASSISTANT CENTER MANAGER CPT-37989 Venipuncture Draw Fee 09:38:56 ASSISTANT CENTER MANAGER CPT-72336 No Charge Offi Visit 21:36:07 CDT 1 CPT-94738 Venipuncture Draw Fee 10:13:28 ASSISTANT CENTER MANAGER CPT-14772 Venipuncture Draw Fee 08:31:11 CDT CPT-88537 Aspir/Inject Med Joint 18:17:28 CDT CPT-25464 Venipuncture Draw Fee 10:13:30 CDT CPT-12229 Venipuncture Draw Fee 08:31:43 ASSISTANT CENTER MANAGER CPT-JTINJ Joint Injection 18:34:50 CDT CPT-40602 Knee 3V 12:25:09 CDT CPT-25954 Venipuncture Draw Fee 12:15:57 CDT CPT-060 Medical Surveillance Exam 21:31:43 CDT 2011 CPT-97368 Venipuncture Draw Fee 08:32:05 ASSISTANT CENTER MANAGER CPT-OV Office Visit 18:19:06 CDT
--- OUTSIDE RECORDS SUMMARY | 2020-01-18 12:44 | XMS REPORT | Clinical Summary ---
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 Carmine benton MD Benign neoplasm of colon Coumadin therapy V58.61 Active Domi Rivera MA Long-term (current) use of anticoagulants Valve replacement V43.3 Active Mitch Arnol Urbina DO Heart valve replaced by other means CELLULITIS, GROIN, LEFT ICD-682.2 Inactive Zoya Urbina SEROMA ICD-998.13 Inactive Mitch Arnol Urbina DO [...] tab to equal 7mg daily WARFARIN SODIUM 00327056528 Active Kathie Juan RPT,R MA Active COLCRYS 0.6 MG TABS 1 tab qid prn gout COLCHICINE 36334959240 Active Kathie Juan RPT,RMA Active INVOKANA 100 MG ORAL TABS 1 tablet orally daily CANAGLIFLOZIN 47687158474 Active Kathie Juan RPT,RMA Active MINOXIDIL 2.5 MG TABS 1 tablet daily for high blood pressure 10/23 MINOXIDIL 65869409117 Active Mitch Urbina DO Active AMLODIPINE BESYLATE 5 MG TABS 1 tablet by mouth daily AMLODIPINE BESYLATE 02776216657 Active Domi Rivera MA Active MECLIZINE HCL 25 MG TAB 1 po tid 3 days, then 1/2 tab tid 3 days MECLIZINE HCL 22415746402 No Longer Active Corey SEGURA Active ALLOPURINOL 300 MG TABS Take 1 tablet by mouth daily 2 ALLOPURINOL 53792931485 No Longer Active Corey SEGURA Activ e CLONIDINE HCL 0.1 MG TABS 1 po bid 7 days, then 1/2 tab po b id 7 days CLONIDINE HCL 73206331356 No Longer Active Corey SEGURA Active COUMADIN 5 MG TABS 1 tab PO daily WARFARIN SODIUM 49219814336 Active Domi Rivera MA Active COUMADIN 4 MG TABS 1 tablet daily WARFARIN SODI UM 00775625102 No Longer Active Corey SEGURA Active POLYTRIM 98106-0.1 UNIT/ML-% SOLN 1 drop in affected e ye every 3 hours while awake x 7 days POLYMYXIN B-TRIMETHOPRIM 77475309004 N o Longer Active Corey SEGURA Active LOSARTAN POTASSIUM-HCTZ 100-12.5 MG TABS 1 by mouth da rocky for high blood pressure LOSARTAN POTASSIUM-HCTZ 50938710745 Active Domi Rivera MA Active LISINOPRIL-HYDROCHLOROTHIAZIDE 20-12.5 MG TABS 1 tab by mouth da rocky LISINOPRIL-HYDROCHLOROTHIAZIDE 90034217034 No Longer Active Mitch luis DO Active LISINOPRIL 20 MG TABS 1 tab po at HS LISINOPRIL 11121614817 No Longer Active Mitch Urbina DO Active COUMADIN 5 MG TABS 1 by mouth every other day WARFARIN SODIUM 75521698320 No Longer Active Mitch Urbina DO Active COUMADIN 6 MG TABS 1 by mouth every other day WARFARIN SODIUM 18264761898 No Longer Active Mitch rUbina DO Active SIMVASTATIN 40 MG TABS 1 tab daily at bedtime S IMVASTATIN 60108305392 Active Domi Rivera MA Active SIMVASTATIN 20 MG TABS 1 tab daily at bedtime S IMVASTATIN 94855580363 No Longer Active Mitch Urbina DO Active LOVENOX 100 MG/ML SC SOLN One injection twice a day 09/15/15 ENOXAPARIN SODIUM 79662056104 No Longer Active Carmine Yusuf MD A ctive JANUVIA 50 MG TABS Take one by mouth daily DIEGO GLIPTIN PHOSPHATE 40156566457 Active Tavo Hilton MD Active JANUVIA 100 MG TABS 1/2 by mouth every day DIEGO GLIPTIN PHOSPHATE 76742442166 No Longer Active Bijal Segal RN Active METFORMIN HCL 500 MG TABS 2 by mouth twice daily METFORMIN HCL 37158388310 Active Mitch Urbina DO Active GLIMEPIRIDE 4 MG TABS 1 tab po bid GLIMEPIRIDE 655764 95176 Active Mitch Urbina DO Active COLCRYS 0.6 MG TABS 1 po q 6 hours prn gout pain 03/02 COLCHICINE 46094195747 No Longer Active Camila Reese Active LISINOPRIL 5 MG TABS 1 by mouth every day LISIN OPRIL 38913944086 No Longer Active Nguyen Perez Active KLOR-CON 20 MEQ PACK Take one by mouth daily 8 POTASSIUM CHLORIDE 59183499467 No Longer Active Nguyen Perez Active FUROSEMIDE 40 MG TABS 1 by mouth daily FUROSEMI DE 86000658727 No Longer Active Nguyen Perez Active PROVIGIL 200 MG TABS 1/2 tab po q day MODAFINIL 76290 103159 Active Curly Coker MD Active PROVIGIL 100 MG TABS Take one by mouth daily MO DAFINIL 83612364900 No Longer Active Mitch Urbina DO Active BACTRIM DS 800-160 MG TAB 1 tab by mouth twice daily 2 TRIMETHOPRIM-SULFAMETHOXAZOLE 65884006113 No Longer Active Renan Hays MD Active FAMOTIDINE 20 MG TABS by mouth twice a day FAMOTI DINE 44651151258 Active Mitch Urbina DO Active ADULT ASPIRIN LOW STRENGTH 81 MG TBDP 1 by mouth every daily ASPIRIN 99375545834 Active Mitch Urbina DO Active METOPROLOL TARTRATE 50 MG TABS 1 by mouth twice daily METOPROLOL TARTRATE 38660878335 Active Domi Rivera MA Active BACTRIM DS 800-160 MG TAB 1 tab by mouth twice daily 2 BACTRIM DS 800-160 MG TAB 380284 TRIMETHOPRIM-SULFAMETHOXAZOLE Inac tive PROVIGIL 100 MG TABS Take one by mouth daily 4 PROVIGIL 100 MG TABS 185661 MODAFINIL Inactive FUROSEMIDE 40 MG TABS 1 by mouth daily FU ROSEMIDE 40 MG TABS 425997 FUROSEMIDE Inactive KLOR-CON 20 MEQ PACK Take one by mouth daily 8 KLOR-CON 20 MEQ PACK 072302 POTASSIUM CHLORIDE Inactive LISINOPRIL 5 MG TABS 1 by mouth every day LISINOPRIL 5 MG TABS 589733 LISINOPRIL Inactive COLCRYS 0.6 MG TABS 1 po q 6 hours prn gout pain 03/02 COLCRYS 0.6 MG TABS 400486 COLCHICINE Inactive JANUVIA 100 MG TABS 1/2 by mouth every day JANUVI A 100 MG TABS SITAGLIPTIN PHOSPHATE Inactive SIMVASTATIN 20 MG TABS 1 tab daily at bedtime SIMVASTATIN 20 MG TABS 594698 SIMVASTATIN Inactive COUMADIN 6 MG TABS 1 by mouth every other day COUMADIN 6 MG TABS 749102 WARFARIN SODIUM Inactive COUMADIN 5 MG TABS 1 by mouth every other day COUMADIN 5 MG TABS 343059 WARFARIN SODIUM Inactive LISINOPRIL 20 MG TABS 1 tab po at HS KOKI NOPRIL 20 MG TABS 795210 LISINOPRIL Inactive LISINOPRIL-HYDROCHLOROTHIAZIDE 20-12.5 MG TABS 1 tab by mouth da rocky LISINOPRIL-HYDROCHLOROTHIAZIDE 20-12.5 MG TABS 467148 LISINOPRIL-HYDROCHLOROTHIAZIDE Inactive POLYTRIM 33231-0.1 UNIT/ML-% SOLN 1 drop in affected e ye every 3 hours while awake x 7 days POLYTRIM 67294-7.1 UNIT/ML-% SOLN 59008 7 POLYMYXIN B-TRIMETHOPRIM Inactive COUMADIN 4 MG TABS 1 tablet daily COUMADIN 4 MG TABS 327717 WARFARIN SODIUM Inactive CLONIDINE HCL 0.1 MG TABS 1 po bid 7 days, then 1/2 tab po b id 7 days CLONIDINE HCL 0.1 MG TABS 801423 CLONIDINE HCL I nactive ALLOPURINOL 300 MG TABS Take 1 tablet by mouth daily 2 ALLOPURINOL 300 MG TABS 941069 ALLOPURINOL Inactive MECLIZINE HCL 25 MG TAB 1 po tid 3 days, then 1/2 tab tid 3 days MECLIZINE HCL 25 MG TAB 767626 MECLIZINE HCL Inactive LOVENOX 100 MG/ML SC SOLN One injection twice a day 20 09/15/15 LOVENOX 100 MG/ML SC SOLN 544027 ENOXAPARIN SODIUM Inactive Vital Signs Date Name [...] - Chem istry sodium, serum 136 mmol/L 196-785 2018/01/14 carbon dioxide, venous blood 25.4 mmol/L 21.0-32 [...] 6.3 % 4.3-6.0 cholesterol, serum 136 mg/dL 298-077 0876/08/09 triglyceride, serum, fasting 187 mg/dL 30-200 HDL [...] 16.2 SECS s 11.1-13.4 prothrombin time (patient) 17.1 [...] 18.1 SECS s 11.1-13.4 prothrombin time (patient) 15.4 SECS s 11.1-13.4 international normalized ratio (INR) 1.5 1.0-3.5 Encounters Code Encounter Date Provider Facility CPT-96505 Level 3 Est. Patient 09:34:30 MANAGER CLINICAL Mitch luis DO [facility] CPT-20216 Level 3 Est. Patient 09:37:15 CDT Mitch W L ee DO [facility] CPT-73114 Level 3 Est. Patient 17:01:00 MANAGER CLINICAL Mitch W L ee DO [facility] CPT-97111 Level 3 Est. Patient 13:53:19 MANAGER CLINICAL Mitch W L ee [facility] CPT-29473 Level 3 Est. Patient 19:19:37 MANAGER CLINICAL Mitch W L janelle DO [facility] CPT-59090 Level 3 Est. Patient 13:25:53 MANAGER CLINICAL Tavo toure MD [facility]-25104 Level 3 Est. Patient 18:17:28 CDT Mitch W L ee [facility] CPT-02648 Level 3 Est. Patient 15:22:57 CDT Mitch W L janelle [facility] CPT-70792 Level 3 Est. Patient 18:21:50 CDT Mitch W L janelle [facility]-23706 Level 3 Est. Patient 18:20:38 CDT Mitch W L ee [facility] CPT-02819 Level 3 Est. Patient 15:37:55 CDT Mitch W L ee [facility] CPT-92910 Level 2 Est. Patient 15:54:44 CDT Carmine benton MD [facility]-21986 Level 3 Est. Patient 21:46:01 MANAGER CLINICAL Mitch W L janelle DO [facility] CPT-76875 Level 3 Est. Patient 22:15:50 CDT Mitch W L ee [facility] CPT-73198 Level 3 Est. Patient 10:48:15 CDT Mitch W L ee [facility] CPT-70864 Level 3 Est. Patient 23:20:57 CDT Tavo toure MD [facility]-24327 Level 3 Est. Patient 16:26:13 CDT Mitch luis [facility] Procedures Code Procedure Name Date Entry Date Standard Desc ription CPT-40980 Venipuncture Draw Fee 08:27:08 CDT CPT-40102 Liver Profile - LAB USE ONLY 08:27:07 CDT 2 CPT-27863 Microalbumin - LAB USE ONLY 08:27:07 CDT 20 25/05/09 CPT-01285 PT/INR - LAB USE ONLY 08:27:07 CDT CPT-47126 HGBA1C - LAB USE ONLY 08:27:07 CDT CPT-54198 CBC - LAB USE ONLY 08:27:07 CDT CPT-71242 Venipuncture Draw Fee 11:09:14 CDT CPT-98425 Venipuncture Draw Fee 08:32:21 MANAGER CLINICAL CPT-60754 Venipuncture Draw Fee 09:38:56 MANAGER CLINICAL CPT-44724 No Charge Offi Visit 21:36:07 CDT 1 CPT-92160 Venipuncture Draw Fee 10:13:28 MANAGER CLINICAL CPT-84258 Venipuncture Draw Fee 08:31:11 CDT CPT-96488 Aspir/Inject Med Joint 18:17:28 CDT CPT-33217 Venipuncture Draw Fee 10:13:30 CDT CPT-18272 Venipuncture Draw Fee 08:31:43 MANAGER CLINICAL CPT-JTINJ Joint Injection 18:34:50 CDT CPT-56721 Knee 3V 12:25:09 CDT CPT-25909 Venipuncture Draw Fee 12:15:57 CDT CPT-060 Medical Surveillance Exam 21:31:43 CDT 2011 CPT-29952 Venipuncture Draw Fee 08:32:05 MANAGER CLINICAL CPT-OV Office Visit 18:19:06 CDT
--- OUTSIDE RECORDS SUMMARY | 2020-01-18 12:44 | XMS REPORT | Clinical Summary ---
Author Author Admin, Mitch Leon Organization [facility] [employer] Address Unknown Phone Unavailable Allergies, Adverse [...] 1 tablet by mouth daily AMLODIPINE BESYLATE 78634530430 No Longer Active Joe Williamson APRN Active MITIGARE 0.6 MG ORAL CAPS 2 capsules at onset of gout pain, then take one capsule at 1 hour if symptoms persist. COLCHICINE 59 719128362 Active Mitch Urbina DO Active COUMADIN 1 MG TAB 2 tabs orally daily with the 5mg tab to equal 7mg daily WARFARIN SODIUM 56225350486 Active Mitch Urbina DO Active COLCRYS 0.6 MG TABS 1 tab qid prn gout COLCHICINE 26251609676 Active Norma Sage Active INVOKANA 100 MG ORAL TABS 1 tablet orally daily CANAGLIFLOZIN 84756183863 Active Mitch Urbina DO Active MINOXIDIL 2.5 MG TABS 1 tablet daily for high blood pressure 10/23 MINOXIDIL 37693937289 Active Mitch Urbina DO Active MECLIZINE HCL 25 MG TAB 1 po tid 3 days, then 1/2 tab tid 3 days MECLIZINE HCL 37876397583 No Longer Active Corey SEGURA Active ALLOPURINOL 300 MG TABS Take 1 tablet by mouth daily 2 ALLOPURINOL 78562653859 No Longer Active Corey SEGURA Activ e CLONIDINE HCL 0.1 MG TABS 1 po bid 7 days, then 1/2 tab po b id 7 days CLONIDINE HCL 37232675159 No Longer Active Corey SEGURA Active COUMADIN 5 MG TABS 1 tab PO daily WARFARIN SODIUM 49826440493 Active Mitch Urbina DO Active COUMADIN 4 MG TABS 1 tablet daily WARFARIN SODI UM 02280370822 No Longer Active Corey SEGURA Active POLYTRIM 40671-5.1 UNIT/ML-% SOLN 1 drop in affected e ye every 3 hours while awake x 7 days POLYMYXIN B-TRIMETHOPRIM 47582236126 N o Longer Active Corey SEGURA Active LOSARTAN POTASSIUM-HCTZ 100-12.5 MG TABS 1 by mouth da rocky for high blood pressure LOSARTAN POTASSIUM-HCTZ 04219455667 Active Stephy Urbina DO Active LISINOPRIL-HYDROCHLOROTHIAZIDE 20-12.5 MG TABS 1 tab by mouth da rocky LISINOPRIL-HYDROCHLOROTHIAZIDE 28045555851 No Longer Active Mitch luis DO Active LISINOPRIL 20 MG TABS 1 tab po at HS LISINOPRIL 07054432841 No Longer Active Mitch Urbina DO Active COUMADIN 5 MG TABS 1 by mouth every other day WARFARIN SODIUM 72610967021 No Longer Active Mitch Arnol Carlitos DO Active COUMADIN 6 MG TABS 1 by mouth every other day WARFARIN SODIUM 71022759510 No Longer Active Mitch Urbina DO Active SIMVASTATIN 40 MG TABS 1 tab daily at bedtime S IMVASTATIN 01597921295 Active Mitch Urbina DO Active SIMVASTATIN 20 MG TABS 1 tab daily at bedtime S IMVASTATIN 35671314738 No Longer Active Mitch Urbina DO Active LOVENOX 100 MG/ML SC SOLN One injection twice a day 09/15/15 ENOXAPARIN SODIUM 74228195454 No Longer Active Carmine Navarrete ctive JANUVIA 50 MG TABS Take one by mouth daily DIEGO GLIPTIN PHOSPHATE 45292504149 Active Mitch Urbina DO Active JANUVIA 100 MG TABS 1/2 by mouth every day DIEGO GLIPTIN PHOSPHATE 27768884646 No Longer Active Bijal Segal RN Active METFORMIN HCL 500 MG TABS 2 by mouth twice daily METFORMIN HCL 96833326008 Active Mitch Urbina DO Active GLIMEPIRIDE 4 MG TABS 1 tab po bid GLIMEPIRIDE 036417 99848 Active Mitch Urbina DO Active COLCRYS 0.6 MG TABS 1 po q 6 hours prn gout pain 03/02 COLCHICINE 49431827219 No Longer Active Camila Reese Active LISINOPRIL 5 MG TABS 1 by mouth every day LISIN OPRIL 39757573538 No Longer Active Nguyen Perez Active KLOR-CON 20 MEQ PACK Take one by mouth daily 8 POTASSIUM CHLORIDE 76516465567 No Longer Active Nguyen Perez Active FUROSEMIDE 40 MG TABS 1 by mouth daily FUROSEMI DE 11540928100 No Longer Active Nguyen Perez Active PROVIGIL 200 MG TABS 1/2 tab po q day MODAFINIL 36398 956557 Active Mitch Urbina DO Active PROVIGIL 100 MG TABS Take one by mouth daily MO DAFINIL 64052496474 No Longer Active Mitch Urbina DO Active BACTRIM DS 800-160 MG TAB 1 tab by mouth twice daily 2 TRIMETHOPRIM-SULFAMETHOXAZOLE 65046056188 No Longer Active Renan Hays MD Active FAMOTIDINE 20 MG TABS by mouth twice a day FAMOTI DINE 87483991885 Active Mitch Urbina DO Active ADULT ASPIRIN LOW STRENGTH 81 MG TBDP 1 by mouth every daily ASPIRIN 52930779221 Active Mitch Urbina DO Active METOPROLOL TARTRATE 50 MG TABS 1 by mouth twice daily METOPROLOL TARTRATE 49656693762 Active Mitch Urbina DO Active BACTRIM DS 800-160 MG TAB 1 tab by mouth twice daily 2 BACTRIM DS 800-160 MG TAB 546182 TRIMETHOPRIM-SULFAMETHOXAZOLE Inac tive PROVIGIL 100 MG TABS Take one by mouth daily 4 PROVIGIL 100 MG TABS 070327 MODAFINIL Inactive FUROSEMIDE 40 MG TABS 1 by mouth daily FU ROSEMIDE 40 MG TABS 076027 FUROSEMIDE Inactive KLOR-CON 20 MEQ PACK Take one by mouth daily 8 KLOR-CON 20 MEQ PACK 0591272 POTASSIUM CHLORIDE Inactive LISINOPRIL 5 MG TABS 1 by mouth every day LISINOPRIL 5 MG TABS 119165 LISINOPRIL Inactive COLCRYS 0.6 MG TABS 1 po q 6 hours prn gout pain 03/02 COLCRYS 0.6 MG TABS 468633 COLCHICINE Inactive JANUVIA 100 MG TABS 1/2 by mouth every day JANUVI A 100 MG TABS SITAGLIPTIN PHOSPHATE Inactive SIMVASTATIN 20 MG TABS 1 tab daily at bedtime SIMVASTATIN 20 MG TABS 537441 SIMVASTATIN Inactive COUMADIN 6 MG TABS 1 by mouth every other day COUMADIN 6 MG TABS 163881 WARFARIN SODIUM Inactive COUMADIN 5 MG TABS 1 by mouth every other day COUMADIN 5 MG TABS 198697 WARFARIN SODIUM Inactive LISINOPRIL 20 MG TABS 1 tab po at HS KOKI NOPRIL 20 MG TABS 720482 LISINOPRIL Inactive LISINOPRIL-HYDROCHLOROTHIAZIDE 20-12.5 MG TABS 1 tab by mouth da rocky LISINOPRIL-HYDROCHLOROTHIAZIDE 20-12.5 MG TABS 057786 LISINOPRIL-HYDROCHLOROTHIAZIDE Inactive POLYTRIM 15135-2.1 UNIT/ML-% SOLN 1 drop in affected e ye every 3 hours while awake x 7 days POLYTRIM 01661-8.1 UNIT/ML-% SOLN 40234 7 POLYMYXIN B-TRIMETHOPRIM Inactive COUMADIN 4 MG TABS 1 tablet daily COUMADIN 4 MG TABS 233268 WARFARIN SODIUM Inactive CLONIDINE HCL 0.1 MG TABS 1 po bid 7 days, then 1/2 tab po b id 7 days CLONIDINE HCL 0.1 MG TABS 051015 CLONIDINE HCL I nactive ALLOPURINOL 300 MG TABS Take 1 tablet by mouth daily 2 ALLOPURINOL 300 MG TABS 440798 ALLOPURINOL Inactive MECLIZINE HCL 25 MG TAB 1 po tid 3 days, then 1/2 tab tid 3 days MECLIZINE HCL 25 MG TAB 482561 MECLIZINE HCL Inactive AMLODIPINE BESYLATE 5 MG TABS 1 tablet by mouth daily AMLODIPINE BESYLATE 5 MG TABS 061983 AMLODIPINE BESYLATE Inactive LOVENOX 100 MG/ML SC SOLN One injection twice a day 09/15/15 LOVENOX 100 MG/ML SC SOLN 775206 ENOXAPARIN SODIUM Inactive Vital Signs Date Name [...] Range Description Chart Maintenance: hemoccult added to [facility] - Chemistry occult blood, stool [...] ... - Chemistry sodium, serum 144 mmol/L 429-758 2760/06/12 carbon dioxide, venous blood 26.6 mmol/L 21.0-32 [...] CBC - Chemistry cholesterol, serum 136 mg/dL 467-197 3223/08/09 triglyceride, serum, fasting 187 mg/dL 30-200 HDL [...] 1.0-3.5 Encounters Code Encounter Date Provider Facility CPT-31074 Level 4 Est. Patient 09:30:18 CDT Mitch luis [facility] CPT-28272 Level 3 Est. Patient 15:10:14 CDT Joe kamara [facility] CPT-19603 Level 3 Est. Patient 15:03:46 CDT Joe kamara [facility] CPT-60968 Level 3 Est. Patient 14:21:06 CDT Mitch luis [facility] CPT-65950 Level 3 Est. Patient 14:52:06 CDT Joe kamara [facility] CPT-15914 Level 3 Est. Patient 09:34:30 SCIENTIFIC LINGUIST Mitch luis [facility] CPT-60323 Level 3 Est. Patient 09:37:15 CDT Mitch luis [facility] CPT-61967 Level 3 Est. Patient 17:01:00 SCIENTIFIC LINGUIST Mitch luis [facility] CPT-94293 Level 3 Est. Patient 13:53:19 SCIENTIFIC LINGUIST Mitch luis [facility] CPT-66755 Level 3 Est. Patient 19:19:37 SCIENTIFIC LINGUIST Mitch W Nona luis [facility] CPT-13143 Level 3 Est. Patient 13:25:53 SCIENTIFIC LINGUIST Tavo toure MD [facility] CPT-38428 Level 3 Est. Patient 18:17:28 CDT Mitch W L janelle [facility] CPT-76501 Level 3 Est. Patient 15:22:57 CDT Mitch W L janelle [facility] CPT-04790 Level 3 Est. Patient 18:21:50 CDT Mitch W L janelle [facility] CPT-09541 Level 3 Est. Patient 18:20:38 CDT Mitch W L janelle [facility] CPT-91227 Level 3 Est. Patient 15:37:55 CDT Mitch Ambrose L janelle [facility] CPT-68449 Level 2 Est. Patient 15:54:44 CDT Carmine benton MD [facility] CPT-54644 Level 3 Est. Patient 21:46:01 SCIENTIFIC LINGUIST Mitch luis [facility] CPT-80923 Level 3 Est. Patient 22:15:50 CDT Mitch Arnol luis [facility] CPT-45623 Level 3 Est. Patient 10:48:15 CDT Mitch W Nona luis [facility] CPT-99589 Level 3 Est. Patient 23:20:57 CDT Tavo toure MD [facility] CPT-83693 Level 3 Est. Patient 16:26:13 CDT Mitch luis [facility] Procedures Code Procedure Name Date Entry Date Standard Desc ription CPT-20015 Venipuncture Draw Fee 09:26:17 CDT CPT-58825 PT/INR - LAB USE ONLY 13:32:49 SCIENTIFIC LINGUIST CPT-64832 Venipuncture Draw Fee 13:32:49 SCIENTIFIC LINGUIST CPT-90971 PT/INR - LAB USE ONLY 10:34:49 SCIENTIFIC LINGUIST CPT-42566 Venipuncture Draw Fee 10:34:48 SCIENTIFIC LINGUIST CPT-23671 PT/INR - LAB USE ONLY 09:22:03 SCIENTIFIC LINGUIST CPT-81434 Venipuncture Draw Fee 09:22:02 SCIENTIFIC LINGUIST CPT-30495 Hemoccult IFOBT - LAB USE ONLY 10:27:22 CDT CPT-90699 Venipuncture Draw Fee 08:27:08 CDT CPT-67945 Liver Profile - LAB USE ONLY 08:27:07 CDT 2 CPT-99054 Microalbumin - LAB USE ONLY 08:27:07 CDT 20 25/05/09 CPT-86377 PT/INR - LAB USE ONLY 08:27:07 CDT CPT-53303 HGBA1C - LAB USE ONLY 08:27:07 CDT CPT-14571 CBC - LAB USE ONLY 08:27:07 CDT CPT-90841 Venipuncture Draw Fee 11:09:14 CDT CPT-53021 Venipuncture Draw Fee 08:32:21 SCIENTIFIC LINGUIST CPT-28339 Venipuncture Draw Fee 09:38:56 SCIENTIFIC LINGUIST CPT-87508 No Charge Offi Visit 21:36:07 CDT 1 CPT-90446 Venipuncture Draw Fee 10:13:28 SCIENTIFIC LINGUIST CPT-41335 Venipuncture Draw Fee 08:31:11 CDT CPT-38670 Aspir/Inject Med Joint 18:17:28 CDT CPT-18878 Venipuncture Draw Fee 10:13:30 CDT CPT-06731 Venipuncture Draw Fee 08:31:43 SCIENTIFIC LINGUIST CPT-JTINJ Joint Injection 18:34:50 CDT CPT-55570 Knee 3V 12:25:09 CDT CPT-34714 Venipuncture Draw Fee 12:15:57 CDT CPT-060 Medical Surveillance Exam 21:31:43 CDT 2011 CPT-80541 Venipuncture Draw Fee 08:32:05 SCIENTIFIC LINGUIST CPT-OV Office Visit 18:19:06 CDT
--- OUTSIDE RECORDS SUMMARY | 2020-01-18 12:44 | XMS REPORT | Clinical Summary ---
Author Author Admin, Mitch Leon Organization [facility] Address Unknown Phone Unavailable Allergies, Adverse [...] of vessel, [place] or graft EDEMA 782.3 Resolved Mitch Urbina [...] 1 tablet by mouth daily AMLODIPINE BESYLATE 67295019769 No Longer Active Joe Williamson APRN Active MITIGARE 0.6 MG ORAL CAPS 2 capsules at onset of gout pain, then take one capsule at 1 hour if symptoms persist. COLCHICINE 59 336128850 Active Mitch Urbina DO Active COUMADIN 1 MG TAB 2 tabs orally daily with the 5mg tab to equal 7mg daily WARFARIN SODIUM 49660092531 Active Mitch Urbina DO Active COLCRYS 0.6 MG TABS 1 tab qid prn gout COLCHICINE 96275911722 Active Norma Sage Active INVOKANA 100 MG ORAL TABS 1 tablet orally daily CANAGLIFLOZIN 10575671653 Active Mitch Urbina DO Active MINOXIDIL 2.5 MG TABS 1 tablet daily for high blood pressure 10/23 MINOXIDIL 44404709379 Active Mitch Urbina DO Active MECLIZINE HCL 25 MG TAB 1 po tid 3 days, then 1/2 tab tid 3 days MECLIZINE HCL 12106198903 No Longer Active Corey SEGURA Active ALLOPURINOL 300 MG TABS Take 1 tablet by mouth daily 2 ALLOPURINOL 50426841686 No Longer Active Corey SEGURA Activ e CLONIDINE HCL 0.1 MG TABS 1 po bid 7 days, then 1/2 tab po b id 7 days CLONIDINE HCL 49441554654 No Longer Active Corey SEGURA Active COUMADIN 5 MG TABS 1 tab PO daily WARFARIN SODIUM 48835435619 Active Mitch Urbina DO Active COUMADIN 4 MG TABS 1 tablet daily WARFARIN SODI UM 87726784428 No Longer Active Corey SEGURA Active POLYTRIM 49886-1.1 UNIT/ML-% SOLN 1 drop in affected e ye every 3 hours while awake x 7 days POLYMYXIN B-TRIMETHOPRIM 78026720850 N o Longer Active Corey SEGURA Active LOSARTAN POTASSIUM-HCTZ 100-12.5 MG TABS 1 by mouth da rocky for high blood pressure LOSARTAN POTASSIUM-HCTZ 30347534276 Active Stephy Urbina DO Active LISINOPRIL-HYDROCHLOROTHIAZIDE 20-12.5 MG TABS 1 tab by mouth da rocky LISINOPRIL-HYDROCHLOROTHIAZIDE 50716463849 No Longer Active Mitch luis DO Active LISINOPRIL 20 MG TABS 1 tab po at HS LISINOPRIL 18503539770 No Longer Active Mitch Urbina DO Active COUMADIN 5 MG TABS 1 by mouth every other day WARFARIN SODIUM 36442665144 No Longer Active Mitch Urbina DO Active COUMADIN 6 MG TABS 1 by mouth every other day WARFARIN SODIUM 88174623181 No Longer Active Mitch Urbina DO Active SIMVASTATIN 40 MG TABS 1 tab daily at bedtime S IMVASTATIN 85146910760 Active Mitch Urbina DO Active SIMVASTATIN 20 MG TABS 1 tab daily at bedtime S IMVASTATIN 56331667343 No Longer Active Mitch Urbina DO Active LOVENOX 100 MG/ML SC SOLN One injection twice a day 09/15/15 ENOXAPARIN SODIUM 15605053468 No Longer Active Carmine Navarrete ctive JANUVIA 50 MG TABS Take one by mouth daily DIEGO GLIPTIN PHOSPHATE 99365646167 Active Mitch Urbina DO Active JANUVIA 100 MG TABS 1/2 by mouth every day DIEGO GLIPTIN PHOSPHATE 01291814419 No Longer Active Bijal Segal RN Active METFORMIN HCL 500 MG TABS 2 by mouth twice daily METFORMIN HCL 31025080787 Active Mitch Urbina DO Active GLIMEPIRIDE 4 MG TABS 1 tab po bid GLIMEPIRIDE 533359 11290 Active Mitch Urbina DO Active COLCRYS 0.6 MG TABS 1 po q 6 hours prn gout pain 03/02 COLCHICINE 76843580616 No Longer Active Camila Reese Active LISINOPRIL 5 MG TABS 1 by mouth every day LISIN OPRIL 77853674757 No Longer Active Nguyen Perez Active KLOR-CON 20 MEQ PACK Take one by mouth daily 8 POTASSIUM CHLORIDE 98916437727 No Longer Active Nguyen Perez Active FUROSEMIDE 40 MG TABS 1 by mouth daily FUROSEMI DE 41066879203 No Longer Active Nguyen Perez Active PROVIGIL 200 MG TABS 1/2 tab po q day MODAFINIL 42340 057726 Active Mitch Urbina DO Active PROVIGIL 100 MG TABS Take one by mouth daily MO DAFINIL 93142693676 No Longer Active Mitch Urbina DO Active BACTRIM DS 800-160 MG TAB 1 tab by mouth twice daily 2 TRIMETHOPRIM-SULFAMETHOXAZOLE 89151123242 No Longer Active Renan Hays MD Active FAMOTIDINE 20 MG TABS by mouth twice a day FAMOTI DINE 01495231811 Active Mitch Urbina DO Active ADULT ASPIRIN LOW STRENGTH 81 MG TBDP 1 by mouth every daily ASPIRIN 08528954269 Active Mitch Urbina DO Active METOPROLOL TARTRATE 50 MG TABS 1 by mouth twice daily METOPROLOL TARTRATE 13273728676 Active Mitch Urbina DO Active BACTRIM DS 800-160 MG TAB 1 tab by mouth twice daily 2 BACTRIM DS 800-160 MG TAB 486110 TRIMETHOPRIM-SULFAMETHOXAZOLE Inac tive PROVIGIL 100 MG TABS Take one by mouth daily 4 PROVIGIL 100 MG TABS 825075 MODAFINIL Inactive FUROSEMIDE 40 MG TABS 1 by mouth daily FU ROSEMIDE 40 MG TABS 368441 FUROSEMIDE Inactive KLOR-CON 20 MEQ PACK Take one by mouth daily 8 KLOR-CON 20 MEQ PACK 7222186 POTASSIUM CHLORIDE Inactive LISINOPRIL 5 MG TABS 1 by mouth every day LISINOPRIL 5 MG TABS 894110 LISINOPRIL Inactive COLCRYS 0.6 MG TABS 1 po q 6 hours prn gout pain 03/02 COLCRYS 0.6 MG TABS 934943 COLCHICINE Inactive JANUVIA 100 MG TABS 1/2 by mouth every day JANUVI A 100 MG TABS SITAGLIPTIN PHOSPHATE Inactive SIMVASTATIN 20 MG TABS 1 tab daily at bedtime SIMVASTATIN 20 MG TABS 584709 SIMVASTATIN Inactive COUMADIN 6 MG TABS 1 by mouth every other day COUMADIN 6 MG TABS 340648 WARFARIN SODIUM Inactive COUMADIN 5 MG TABS 1 by mouth every other day COUMADIN 5 MG TABS 448209 WARFARIN SODIUM Inactive LISINOPRIL 20 MG TABS 1 tab po at HS [place]OKI NOPRIL 20 MG TABS 918517 LISINOPRIL Inactive LISINOPRIL-HYDROCHLOROTHIAZIDE 20-12.5 MG TABS 1 tab by mouth da rocky LISINOPRIL-HYDROCHLOROTHIAZIDE 20-12.5 MG TABS 770349 LISINOPRIL-HYDROCHLOROTHIAZIDE Inactive POLYTRIM 56204-3.1 UNIT/ML-% SOLN 1 drop in affected e ye every 3 hours while awake x 7 days POLYTRIM 11111-3.1 UNIT/ML-% SOLN 10164 7 POLYMYXIN B-TRIMETHOPRIM Inactive COUMADIN 4 MG TABS 1 tablet daily COUMADIN 4 MG TABS 121896 WARFARIN SODIUM Inactive CLONIDINE HCL 0.1 MG TABS 1 po bid 7 days, then 1/2 tab po b id 7 days CLONIDINE HCL 0.1 MG TABS 143266 CLONIDINE HCL I nactive ALLOPURINOL 300 MG TABS Take 1 tablet by mouth daily 2 ALLOPURINOL 300 MG TABS 078706 ALLOPURINOL Inactive MECLIZINE HCL 25 MG TAB 1 po tid 3 days, then 1/2 tab tid 3 days MECLIZINE HCL 25 MG TAB 227865 MECLIZINE HCL Inactive AMLODIPINE BESYLATE 5 MG TABS 1 tablet by mouth daily AMLODIPINE BESYLATE 5 MG TABS 295105 AMLODIPINE BESYLATE Inactive LOVENOX 100 MG/ML SC SOLN One injection twice a day 09/15/15 LOVENOX 100 MG/ML SC SOLN 086300 ENOXAPARIN SODIUM Inactive Vital Signs Date Name [...] ... - Chemistry sodium, serum 144 mmol/L 618-574 3292/06/12 carbon dioxide, venous blood 26.6 mmol/L 21.0-32 [...] CBC - Chemistry cholesterol, serum 136 mg/dL 774-045 9267/08/09 triglyceride, serum, fasting 187 mg/dL 30-200 HDL [...] 1.0-3.5 Encounters Code Encounter Date Provider Facility CPT-40341 Level 4 Est. Patient 09:30:18 CDT Mitch luis [facility] CPT-04955 Level 3 Est. Patient 15:10:14 CDT Joe kamara [facility] CPT-63335 Level 3 Est. Patient 15:03:46 CDT Joe kamara [facility] CPT-68237 Level 3 Est. Patient 14:21:06 CDT Mitch luis [facility] CPT-67003 Level 3 Est. Patient 14:52:06 CDT Joe kamara APRN [facility] CPT-13436 Level 3 Est. Patient 09:34:30 CONSTRUCTION CODE ADMINISTRATOR Mitch W L ee [facility]-92658 Level 3 Est. Patient 09:37:15 CDT Mitch W L ee [facility] CPT-06659 Level 3 Est. Patient 17:01:00 CONSTRUCTION CODE ADMINISTRATOR Mitch W L ee [facility] CPT-34555 Level 3 Est. Patient 13:53:19 CONSTRUCTION CODE ADMINISTRATOR Imtch W L ee [facility] CPT-84982 Level 3 Est. Patient 19:19:37 CONSTRUCTION CODE ADMINISTRATOR Mitch W L ee [facility]-04096 Level 3 Est. Patient 13:25:53 CONSTRUCTION CODE ADMINISTRATOR Tavo toure MD [facility]-57180 Level 3 Est. Patient 18:17:28 CDT Mitch W L janelle [facility] CPT-64742 Level 3 Est. Patient 15:22:57 CDT Mitch W L ee [facility]-13655 Level 3 Est. Patient 18:21:50 CDT Mitch W L ee [facility]-20985 Level 3 Est. Patient 18:20:38 CDT Mitch W L ee [facility]-93940 Level 3 Est. Patient 15:37:55 CDT Mitch W L ee [facility] CPT-55936 Level 2 Est. Patient 15:54:44 CDT Carmine benton MD [facility]-06713 Level 3 Est. Patient 21:46:01 CONSTRUCTION CODE ADMINISTRATOR Mitch W L ee [facility] CPT-68147 Level 3 Est. Patient 22:15:50 CDT Mitch W L ee [facility] CPT-20590 Level 3 Est. Patient 10:48:15 CDT Mitch W L ee [facility] CPT-94830 Level 3 Est. Patient 23:20:57 CDT Tavo toure MD [facility] CPT-41833 Level 3 Est. Patient 16:26:13 CDT Mitch Castellano ee [facility] Procedures Code Procedure Name Date Entry Date Standard Desc ription CPT-51690 PT/INR - LAB USE ONLY 13:32:49 CONSTRUCTION CODE ADMINISTRATOR CPT-01981 Venipuncture Draw Fee 13:32:49 CONSTRUCTION CODE ADMINISTRATOR CPT-86078 PT/INR - LAB USE ONLY 10:34:49 CONSTRUCTION CODE ADMINISTRATOR CPT-52882 Venipuncture Draw Fee 10:34:48 CONSTRUCTION CODE ADMINISTRATOR CPT-89737 PT/INR - LAB USE ONLY 09:22:03 CONSTRUCTION CODE ADMINISTRATOR CPT-52255 Venipuncture Draw Fee 09:22:02 CONSTRUCTION CODE ADMINISTRATOR CPT-05654 Hemoccult IFOBT - LAB USE ONLY 10:27:22 CDT CPT-25400 Venipuncture Draw Fee 08:27:08 CDT CPT-83503 Liver Profile - LAB USE ONLY 08:27:07 CDT 2 CPT-45409 Microalbumin - LAB USE ONLY 08:27:07 CDT 20 25/05/09 CPT-13366 PT/INR - LAB USE ONLY 08:27:07 CDT CPT-02998 HGBA1C - LAB USE ONLY 08:27:07 CDT CPT-22295 CBC - LAB USE ONLY 08:27:07 CDT CPT-31985 Venipuncture Draw Fee 11:09:14 CDT CPT-23978 Venipuncture Draw Fee 08:32:21 CONSTRUCTION CODE ADMINISTRATOR CPT-23074 Venipuncture Draw Fee 09:38:56 CONSTRUCTION CODE ADMINISTRATOR CPT-60297 No Charge Offi Visit 21:36:07 CDT 1 CPT-30511 Venipuncture Draw Fee 10:13:28 CONSTRUCTION CODE ADMINISTRATOR CPT-69721 Venipuncture Draw Fee 08:31:11 CDT CPT-99715 Aspir/Inject Med Joint 18:17:28 CDT CPT-70563 Venipuncture Draw Fee 10:13:30 CDT CPT-08719 Venipuncture Draw Fee 08:31:43 CONSTRUCTION CODE ADMINISTRATOR CPT-JTINJ Joint Injection 18:34:50 CDT CPT-65175 Knee 3V 12:25:09 CDT CPT-23642 Venipuncture Draw Fee 12:15:57 CDT CPT-060 Medical Surveillance Exam 21:31:43 CDT 2011 CPT-08391 Venipuncture Draw Fee 08:32:05 CONSTRUCTION CODE ADMINISTRATOR CPT-OV Office Visit 18:19:06 CDT
--- OUTSIDE RECORDS SUMMARY | 2020-01-18 12:45 | XMS REPORT | Clinical Summary ---
Author Author Admin, Mitch Leon Organization [facility] Address Unknown Phone Unavailable Allergies, Adverse Reactions, [...] Coronary atherosclerosis of unspecified type of vessel, [place] or graft EDEMA 782.3 Resolved Mitch [...] ( 6mg total ) 2015 WARFARIN SODIUM 88894095232 Active Domi Rivera MA Acti ve INVOKANA 100 MG ORAL TABS 1 tablet orally daily CANAGLIFLOZIN 20030008243 Active Kathie Juan RPT,RMA Active MINOXIDIL 2.5 MG TABS 1 tablet daily for high blood pressure 10/23 MINOXIDIL 49492329831 Active Mitch Urbina DO Active AMLODIPINE BESYLATE 5 MG TABS 1 tablet by mouth daily AMLODIPINE BESYLATE 88268124788 Active Domi Rivera MA Active MECLIZINE HCL 25 MG TAB 1 po tid 3 days, then 1/2 tab tid 3 days MECLIZINE HCL 69438749253 No Longer Active Corey SEGURA Active ALLOPURINOL 300 MG TABS Take 1 tablet by mouth daily 2 ALLOPURINOL 62247061860 No Longer Active Corey SEGURA Activ e CLONIDINE HCL 0.1 MG TABS 1 po bid 7 days, then 1/2 tab po b id 7 days CLONIDINE HCL 56322587906 No Longer Active Corey SEGURA Active COUMADIN 5 MG TABS 1 tab PO daily WARFARIN SODIUM 15496753545 Active Domi Rivera MA Active COUMADIN 4 MG TABS 1 tablet daily WARFARIN SODI UM 43076895223 No Longer Active Corey SEGURA Active POLYTRIM 36585-3.1 UNIT/ML-% SOLN 1 drop in affected e ye every 3 hours while awake x 7 days POLYMYXIN B-TRIMETHOPRIM 21400210998 N o Longer Active Corey SEGURA Active LOSARTAN POTASSIUM-HCTZ 100-12.5 MG TABS 1 by mouth [place] for high blood pressure LOSARTAN POTASSIUM-HCTZ 09163179527 Active Domi Rivera MA Active LISINOPRIL-HYDROCHLOROTHIAZIDE 20-12.5 MG TABS 1 tab by mouth da rocky LISINOPRIL-HYDROCHLOROTHIAZIDE 45031878343 No Longer Active Mitch luis DO Active LISINOPRIL 20 MG TABS 1 tab po at HS LISINOPRIL 47429614501 No Longer Active Mitch Urbina DO Active COUMADIN 5 MG TABS 1 by mouth every other day WARFARIN SODIUM 05123712137 No Longer Active Mitch Urbina DO Active COUMADIN 6 MG TABS 1 by mouth every other day WARFARIN SODIUM 07617860866 No Longer Active Mitch Urbina DO Active COLCRYS 0.6 MG TABS 1 tab qid prn gout COLCHICINE 23593478749 Active Corey SEGURA Active SIMVASTATIN 40 MG TABS 1 tab daily at bedtime S IMVASTATIN 17508807329 Active Domi Rivera MA Active SIMVASTATIN 20 MG TABS 1 tab daily at bedtime S IMVASTATIN 79159776049 No Longer Active Mitch Urbina DO Active LOVENOX 100 MG/ML SC SOLN One injection twice a day 09/15/15 ENOXAPARIN SODIUM 93448643029 No Longer Active Carmine Navarrete ctive JANUVIA 50 MG TABS Take one by mouth daily DIEGO GLIPTIN PHOSPHATE 93283363284 Active Domi Rivera MA Active JANUVIA 100 MG TABS 1/2 by mouth every day DIEGO GLIPTIN PHOSPHATE 26161873024 No Longer Active Bijal Segal RN Active METFORMIN HCL 500 MG TABS 2 by mouth twice daily METFORMIN HCL 76125774985 Active Kathie Juan RPT,RMA Active GLIMEPIRIDE 4 MG TABS 1 tab po bid GLIMEPIRIDE 975836 82947 Active Kathie Juan RPT,RMA Active COLCRYS 0.6 MG TABS 1 po q 6 hours prn gout pain 03/02 COLCHICINE 71050162415 No Longer Active Camila Reese Active LISINOPRIL 5 MG TABS 1 by mouth every day LISIN OPRIL 61900479519 No Longer Active Nguyen Perez Active KLOR-CON 20 MEQ PACK Take one by mouth daily 8 POTASSIUM CHLORIDE 38307406040 No Longer Active Nguyen Perez Active FUROSEMIDE 40 MG TABS 1 by mouth daily FUROSEMI DE 40995782936 No Longer Active Nguyenmolly Perez Active PROVIGIL 200 MG TABS 1/2 tab po q day MODAFINIL 81978 295902 Active Domi Rivera MA Active PROVIGIL 100 MG TABS Take one by mouth daily MO DAFINIL 96576332950 No Longer Active Mitch Urbina DO Active BACTRIM DS 800-160 MG TAB 1 tab by mouth twice daily 2 TRIMETHOPRIM-SULFAMETHOXAZOLE 69482011665 No Longer Active Renan Hays MD Active FAMOTIDINE 20 MG TABS by mouth twice a day FAMOTI DINE 54350130823 Active Mitch Urbina DO Active ADULT ASPIRIN LOW STRENGTH 81 MG TBDP 1 by mouth every daily ASPIRIN 54869679886 Active Mitch Urbina DO Active METOPROLOL TARTRATE 50 MG TABS 1 by mouth twice daily METOPROLOL TARTRATE 23893378169 Active Domi Rivera MA Active BACTRIM DS 800-160 MG TAB 1 tab by mouth twice daily 2 BACTRIM DS 800-160 MG TAB 664928 TRIMETHOPRIM-SULFAMETHOXAZOLE Inac tive PROVIGIL 100 MG TABS Take one by mouth daily 4 PROVIGIL 100 MG TABS 641408 MODAFINIL Inactive FUROSEMIDE 40 MG TABS 1 by mouth daily FU ROSEMIDE 40 MG TABS 076762 FUROSEMIDE Inactive KLOR-CON 20 MEQ PACK Take one by mouth daily 8 KLOR-CON 20 MEQ PACK 516301 POTASSIUM CHLORIDE Inactive LISINOPRIL 5 MG TABS 1 by mouth every day LISINOPRIL 5 MG TABS 378521 LISINOPRIL Inactive COLCRYS 0.6 MG TABS 1 po q 6 hours prn gout pain 03/02 COLCRYS 0.6 MG TABS 635272 COLCHICINE Inactive JANUVIA 100 MG TABS 1/2 by mouth every day JANUVI A 100 MG TABS SITAGLIPTIN PHOSPHATE Inactive SIMVASTATIN 20 MG TABS 1 tab daily at bedtime SIMVASTATIN 20 MG TABS 124056 SIMVASTATIN Inactive COUMADIN 6 MG TABS 1 by mouth every other day COUMADIN 6 MG TABS 194481 WARFARIN SODIUM Inactive COUMADIN 5 MG TABS 1 by mouth every other day COUMADIN 5 MG TABS 976492 WARFARIN SODIUM Inactive LISINOPRIL 20 MG TABS 1 tab po at HS [place] NOPRIL 20 MG TABS 144598 LISINOPRIL Inactive LISINOPRIL-HYDROCHLOROTHIAZIDE 20-12.5 MG TABS 1 tab by mouth da rocky LISINOPRIL-HYDROCHLOROTHIAZIDE 20-12.5 MG TABS 471962 LISINOPRIL-HYDROCHLOROTHIAZIDE Inactive POLYTRIM 45459-0.1 UNIT/ML-% SOLN 1 drop in affected e ye every 3 hours while awake x 7 days POLYTRIM 03600-8.1 UNIT/ML-% SOLN 45490 7 POLYMYXIN B-TRIMETHOPRIM Inactive COUMADIN 4 MG TABS 1 tablet daily COUMADIN 4 MG TABS 643901 WARFARIN SODIUM Inactive CLONIDINE HCL 0.1 MG TABS 1 po bid 7 days, then 1/2 tab po b id 7 days CLONIDINE HCL 0.1 MG TABS 939798 CLONIDINE HCL I nactive ALLOPURINOL 300 MG TABS Take 1 tablet by mouth daily 2 ALLOPURINOL 300 MG TABS 825337 ALLOPURINOL Inactive MECLIZINE HCL 25 MG TAB 1 po tid 3 days, then 1/2 tab tid 3 days MECLIZINE HCL 25 MG TAB 614447 MECLIZINE HCL Inactive LOVENOX 100 MG/ML SC SOLN One injection twice a day 09/15/15 LOVENOX 100 MG/ML SC SOLN 244720 ENOXAPARIN SODIUM Inactive Vital Signs Date Name [...] Range Description Chart Maintenance: [facility] [...] Ag - Chemistry sodium, serum 141 mmol/L 815-007 4428/07/06 potassium, serum 4.4 mmol/L 3.5-5.2 chloride, serum [...] - Chem istry sodium, serum 136 mmol/L 131-041 0196/01/14 carbon dioxide, venous blood 25.4 mmol/L 21.0-32 [...] 7.0 % 4.3-6.0 cholesterol, serum 120 mg/dL 911-215 9579/07/06 triglyceride, serum, fasting 186 mg/dL 30-200 HDL [...] 1.0-3.5 Encounters Code Encounter Date Provider Facility CPT-00156 Level 3 Est. Patient 09:34:30 LIMB DRIVER Mitch luis [facility] CPT-81030 Level 3 Est. Patient 09:37:15 CDT Mitch luis [facility] CPT-81864 Level 3 Est. Patient 17:01:00 LIMB DRIVER Mitch luis [facility] CPT-87798 Level 3 Est. Patient 13:53:19 LIMB DRIVER Mitch luis [facility] CPT-28872 Level 3 Est. Patient 19:19:37 LIMB DRIVER Mitch luis [facility] CPT-29159 Level 3 Est. Patient 13:25:53 LIMB DRIVER Tavo toure MD [facility] CPT-04946 Level 3 Est. Patient 18:17:28 CDT Mitch luis [facility] CPT-23027 Level 3 Est. Patient 15:22:57 CDT Mitch luis [facility] CPT-53453 Level 3 Est. Patient 18:21:50 CDT Mitch luis [facility] CPT-15689 Level 3 Est. Patient 18:20:38 CDT Mitch luis [facility] CPT-28061 Level 3 Est. Patient 15:37:55 CDT Mitch luis [facility] CPT-73878 Level 2 Est. Patient 15:54:44 CDT Carmine benton MD [facility] CPT-19390 Level 3 Est. Patient 21:46:01 LIMB DRIVER Mitch luis [facility] CPT-35944 Level 3 Est. Patient 22:15:50 CDT Mitch luis [facility] CPT-51736 Level 3 Est. Patient 10:48:15 CDT Mitch luis [facility] CPT-93102 Level 3 Est. Patient 23:20:57 CDT Tavo toure MD [facility] CPT-41232 Level 3 Est. Patient 16:26:13 CDT Mitch luis [facility] Procedures Code Procedure Name Date Entry Date Standard Desc ription CPT-47861 Venipuncture Draw Fee 08:32:21 LIMB DRIVER CPT-23732 Venipuncture Draw Fee 09:38:56 LIMB DRIVER CPT-45105 No Charge Offi Visit 21:36:07 CDT 1 CPT-87891 Venipuncture Draw Fee 10:13:28 LIMB DRIVER CPT-49068 Venipuncture Draw Fee 08:31:11 CDT CPT-95117 Aspir/Inject Med Joint 18:17:28 CDT CPT-26280 Venipuncture Draw Fee 10:13:30 CDT CPT-58921 Venipuncture Draw Fee 08:31:43 LIMB DRIVER CPT-JTINJ Joint Injection 18:34:50 CDT CPT-63357 Knee 3V 12:25:09 CDT CPT-10199 Venipuncture Draw Fee 12:15:57 CDT CPT-060 Medical Surveillance Exam 21:31:43 CDT 2011 CPT-21965 Venipuncture Draw Fee 08:32:05 LIMB DRIVER CPT-OV Office Visit 18:19:06 CDT
--- OUTSIDE RECORDS SUMMARY | 2020-01-18 12:45 | XMS REPORT | Clinical Summary ---
Author Author Admin, Mitch Leon Organization [facility] Address Unknown Phone Unavailable Allergies, Adverse Reactions, [...] Coronary atherosclerosis of unspecified type of vessel, [place] or graft EDEMA 782.3 Resolved Mitch Urbina [...] ORAL TABS 1 tablet orally daily CANAGLIFLOZIN 26799122671 Active Kathie Juan RPT,RMA Active MINOXIDIL 2.5 MG TABS 1 tablet daily for high blood pressure 10/23 MINOXIDIL 97396423911 Active Mitch Arnol Carlitos Active AMLODIPINE BESYLATE 5 MG TABS 1 tablet by mouth daily AMLODIPINE BESYLATE 00515908805 Active Domi Rivera MA Active MECLIZINE HCL 25 MG TAB 1 po tid 3 days, then 1/2 tab tid 3 days MECLIZINE HCL 47446112710 No Longer Active Corey SEGURA Active ALLOPURINOL 300 MG TABS Take 1 tablet by mouth daily 2 ALLOPURINOL 30485041547 No Longer Active Corey SEGURA Activ e CLONIDINE HCL 0.1 MG TABS 1 po bid 7 days, then 1/2 tab po b id 7 days CLONIDINE HCL 31119792129 No Longer Active Corey SEGURA Active COUMADIN 5 MG TABS 1 tab PO daily WARFARIN SODIUM 04760839801 Active Mitch Urbina DO Active COUMADIN 4 MG TABS 1 tablet daily WARFARIN SODI UM 36028373779 No Longer Active Corey SEGURA Active POLYTRIM 51893-9.1 UNIT/ML-% SOLN 1 drop in affected e ye every 3 hours while awake x 7 days POLYMYXIN B-TRIMETHOPRIM 86332986996 N o Longer Active Corey SEGURA Active LOSARTAN POTASSIUM-HCTZ 100-12.5 MG TABS 1 by mouth da rocky for high blood pressure LOSARTAN POTASSIUM-HCTZ 43920358056 Active Stephy Urbina DO Active LISINOPRIL-HYDROCHLOROTHIAZIDE 20-12.5 MG TABS 1 tab by mouth da rocky LISINOPRIL-HYDROCHLOROTHIAZIDE 54469156401 No Longer Active Mitch luis DO Active LISINOPRIL 20 MG TABS 1 tab po at HS LISINOPRIL 73574852331 No Longer Active Mitch Urbina DO Active COUMADIN 5 MG TABS 1 by mouth every other day WARFARIN SODIUM 42194054998 No Longer Active Mitch Urbina DO Active COUMADIN 6 MG TABS 1 by mouth every other day WARFARIN SODIUM 20512698335 No Longer Active Mitch Urbina DO Active COLCRYS 0.6 MG TABS 1 tab qid prn gout COLCHICINE 56161666857 Active Corey SEGURA Active SIMVASTATIN 40 MG TABS 1 tab daily at bedtime S IMVASTATIN 21676941302 Active Domi Rivera MA Active SIMVASTATIN 20 MG TABS 1 tab daily at bedtime S IMVASTATIN 08923045081 No Longer Active Mitch Urbina DO Active LOVENOX 100 MG/ML SC SOLN One injection twice a day 09/15/15 ENOXAPARIN SODIUM 76980601654 No Longer Active Carmine Navarrete ctive JANUVIA 50 MG TABS Take one by mouth daily DIEGO GLIPTIN PHOSPHATE 91512628285 Active Kathie Juan RPT,RMA Active JANUVIA 100 MG TABS 1/2 by mouth every day DIEGO GLIPTIN PHOSPHATE 61420101471 No Longer Active Bijal Segal RN Active METFORMIN HCL 500 MG TABS 2 by mouth twice daily METFORMIN HCL 49615889458 Active Mitch Urbina DO Active GLIMEPIRIDE 4 MG TABS 1 tab po bid GLIMEPIRIDE 569459 22175 Active Mitch Urbina DO Active COLCRYS 0.6 MG TABS 1 po q 6 hours prn gout pain 03/02 COLCHICINE 81208645591 No Longer Active Camila Reese Active LISINOPRIL 5 MG TABS 1 by mouth every day LISIN OPRIL 97129353199 No Longer Active Nguyenmolly Perez Active KLOR-CON 20 MEQ PACK Take one by mouth daily 8 POTASSIUM CHLORIDE 24760518141 No Longer Active Nguyenmolly Perez Active FUROSEMIDE 40 MG TABS 1 by mouth daily FUROSEMI DE 00526674227 No Longer Active Nguyen Perez Active PROVIGIL 200 MG TABS 1/2 tab po q day MODAFINIL 66123 114763 Active Kathie Juan RPT,RMA Active PROVIGIL 100 MG TABS Take one by mouth daily MO DAFINIL 17467085110 No Longer Active Mitch Urbina DO Active BACTRIM DS 800-160 MG TAB 1 tab by mouth twice daily 2 TRIMETHOPRIM-SULFAMETHOXAZOLE 15961398778 No Longer Active Renan Hays MD Active FAMOTIDINE 20 MG TABS by mouth twice a day FAMOTI DINE 83197366809 Active Mitch Urbina DO Active ADULT ASPIRIN LOW STRENGTH 81 MG TBDP 1 by mouth every daily ASPIRIN 77645713134 Active Mitch Urbina DO Active METOPROLOL TARTRATE 50 MG TABS 1 by mouth twice daily METOPROLOL TARTRATE 79703072792 Active Kathie Juan RPT,RMA Acti ve BACTRIM DS 800-160 MG TAB 1 tab by mouth twice daily 2 BACTRIM DS 800-160 MG TAB 776711 TRIMETHOPRIM-SULFAMETHOXAZOLE Inac tive PROVIGIL 100 MG TABS Take one by mouth daily 4 PROVIGIL 100 MG TABS 528780 MODAFINIL Inactive FUROSEMIDE 40 MG TABS 1 by mouth daily FU ROSEMIDE 40 MG TABS 992254 FUROSEMIDE Inactive KLOR-CON 20 MEQ PACK Take one by mouth daily 8 KLOR-CON 20 MEQ PACK 868764 POTASSIUM CHLORIDE Inactive LISINOPRIL 5 MG TABS 1 by mouth every day LISINOPRIL 5 MG TABS 083032 LISINOPRIL Inactive COLCRYS 0.6 MG TABS 1 po q 6 hours prn gout pain 03/02 COLCRYS 0.6 MG TABS 555258 COLCHICINE Inactive JANUVIA 100 MG TABS 1/2 by mouth every day JANUVI A 100 MG TABS SITAGLIPTIN PHOSPHATE Inactive SIMVASTATIN 20 MG TABS 1 tab daily at bedtime SIMVASTATIN 20 MG TABS 688324 SIMVASTATIN Inactive COUMADIN 6 MG TABS 1 by mouth every other day COUMADIN 6 MG TABS 889624 WARFARIN SODIUM Inactive COUMADIN 5 MG TABS 1 by mouth every other day COUMADIN 5 MG TABS 731517 WARFARIN SODIUM Inactive LISINOPRIL 20 MG TABS 1 tab po at HS KOKI NOPRIL 20 MG TABS 984524 LISINOPRIL Inactive LISINOPRIL-HYDROCHLOROTHIAZIDE 20-12.5 MG TABS 1 tab by mouth da rocky LISINOPRIL-HYDROCHLOROTHIAZIDE 20-12.5 MG TABS 173170 LISINOPRIL-HYDROCHLOROTHIAZIDE Inactive POLYTRIM 43398-8.1 UNIT/ML-% SOLN 1 drop in affected e ye every 3 hours while awake x 7 days POLYTRIM 35430-6.1 UNIT/ML-% SOLN 80193 7 POLYMYXIN B-TRIMETHOPRIM Inactive COUMADIN 4 MG TABS 1 tablet daily COUMADIN 4 MG TABS 556199 WARFARIN SODIUM Inactive CLONIDINE HCL 0.1 MG TABS 1 po bid 7 days, then 1/2 tab po b id 7 days CLONIDINE HCL 0.1 MG TABS 629290 CLONIDINE HCL I nactive ALLOPURINOL 300 MG TABS Take 1 tablet by mouth daily 2 ALLOPURINOL 300 MG TABS 656366 ALLOPURINOL Inactive MECLIZINE HCL 25 MG TAB 1 po tid 3 days, then 1/2 tab tid 3 days MECLIZINE HCL 25 MG TAB 348238 MECLIZINE HCL Inactive LOVENOX 100 MG/ML SC SOLN One injection twice a day 09/15/15 LOVENOX 100 MG/ML SC SOLN 847700 ENOXAPARIN SODIUM Inactive Vital Signs Date Name [...] Ag - Chemistry sodium, serum 141 mmol/L 342-986 2069/07/06 potassium, serum 4.4 mmol/L 3.5-5.2 chloride, serum [...] - Chem istry sodium, serum 136 mmol/L 716-128 0031/01/14 carbon dioxide, venous blood 25.4 mmol/L 21.0-32 [...] 7.0 % 4.3-6.0 cholesterol, serum 120 mg/dL 496-512 1275/07/06 triglyceride, serum, fasting 186 mg/dL 30-200 HDL [...] ratio (INR) 2.4 1.0-3.5 prothrombin time (patient) 18.6 SECS s 11.1-13.4 international normalized ratio (INR) 2.2 1.0-3.5 prothrombin time (patient) 20.1 SECS s 11.1-13.4 international normalized ratio (INR) 2.6 1.0-3.5 Encounters Code Encounter Date Provider Facility CPT-43200 Level 3 Est. Patient 09:34:30 ETCHER PHOTOENGRAVING Mitch W L ee DO [facility] CPT-92133 Level 3 Est. Patient 09:37:15 CDT Mitch W L ee DO [facility] CPT-53908 Level 3 Est. Patient 17:01:00 ETCHER PHOTOENGRAVING Mitch W L ee DO [facility] CPT-34028 Level 3 Est. Patient 13:53:19 ETCHER PHOTOENGRAVING Mitch W L ee [facility] CPT-20048 Level 3 Est. Patient 19:19:37 ETCHER PHOTOENGRAVING Mitch W L ee DO [facility] CPT-83335 Level 3 Est. Patient 13:25:53 ETCHER PHOTOENGRAVING Tavo toure MD [facility]-62449 Level 3 Est. Patient 18:17:28 CDT Mitch W L ee [facility] CPT-11210 Level 3 Est. Patient 15:22:57 CDT Mitch W L ee [facility] CPT-94038 Level 3 Est. Patient 18:21:50 CDT Mitch W L ee [facility] CPT-08423 Level 3 Est. Patient 18:20:38 CDT Mitch W L ee [facility] CPT-57492 Level 3 Est. Patient 15:37:55 CDT Mitch W L ee [facility] CPT-01324 Level 2 Est. Patient 15:54:44 CDT Carmine benton MD [facility]-79987 Level 3 Est. Patient 21:46:01 ETCHER PHOTOENGRAVING Mitch W L ee [facility] CPT-13963 Level 3 Est. Patient 22:15:50 CDT Mitch W L ee [facility] CPT-30851 Level 3 Est. Patient 10:48:15 CDT Mitch W L ee [facility] CPT-94293 Level 3 Est. Patient 23:20:57 CDT Tavo toure MD [facility] CPT-99587 Level 3 Est. Patient 16:26:13 CDT Mitch luis DO [facility] Procedures Code Procedure Name Date Entry Date Standard Desc ription CPT-89506 Venipuncture Draw Fee 09:38:56 [employer] CPT-42400 No Charge Offi Visit 21:36:07 CDT 1 CPT-72482 Venipuncture Draw Fee 10:13:28 [employer] CPT-86857 Venipuncture Draw Fee 08:31:11 CDT CPT-22083 Aspir/Inject Med Joint 18:17:28 CDT CPT-26948 Venipuncture Draw Fee 10:13:30 CDT CPT-47188 Venipuncture Draw Fee 08:31:43 [employer]CH[employer]ENG[employer] CPT-JTINJ Joint Injection 18:34:50 CDT CPT-97301 Knee 3V 12:25:09 CDT CPT-15445 Venipuncture Draw Fee 12:15:57 CDT CPT-060 Medical Surveillance Exam 21:31:43 CDT 2011 CPT-07458 Venipuncture Draw Fee 08:32:05 [employer]CHER PHOTOENGRAVING CPT-OV Office Visit 18:19:06 CDT
--- OUTSIDE RECORDS SUMMARY | 2020-01-18 12:45 | XMS REPORT | Clinical Summary ---
Author Author Admin, Mitch Leon Organization [facility] Address Unknown Phone Unavailable Allergies, Adverse Reactions, [...] ORAL TABLET 1 po BID GLIMEPIRID E 00078217429 Active Renee Oconnor LPN Active KEFLEX 500 MG ORAL CAPSULE 1 po qid CEPHALEXI N 95522768107 No Longer Active Mitch Urbina DO Active LOSARTAN POTASSIUM 100 MG ORAL TABLET 1 pill by mouth daily, for blood pressure LOSARTAN POTASSIUM 67897024624 Active Ana Wallace Active AMLODIPINE BESYLATE 5 MG ORAL TABLET 1 tablet by mouth daily 201 01/20/04 AMLODIPINE BESYLATE 96605683062 No Longer Active Joe fulton APRN Active MITIGARE 0.6 MG ORAL CAPSULE 2 capsules at onset of go ut pain, then take one capsule at 1 hour if symptoms persist. COLCHICINE 59 549861015 Active Mitch Urbina DO Active COUMADIN 1 MG ORAL TABLET 2 tabs orally daily with the 5mg tab to equal 7mg daily WARFARIN SODIUM 98279679246 Active Ana Wallace Active COLCRYS 0.6 MG ORAL TABLET 1 tab qid prn gout C OLCHICINE 94181153029 Active Norma Cazares Active INVOKANA 100 MG ORAL TABLET 1 tablet orally daily CANAGLIFLOZIN 33909534843 Active Mitch Urbina DO Active MINOXIDIL 2.5 MG ORAL TABLET 1 tablet daily for high blood press ure MINOXIDIL 46226226799 Active Mitch Urbina DO Active MECLIZINE HCL 25 MG ORAL TABLET 1 po tid 3 days, then 1/2 ta b tid 3 days MECLIZINE HCL 22414183784 No Longer Active Corey SEGURA Active ALLOPURINOL 300 MG ORAL TABLET Take 1 tablet by mouth daily 2012 ALLOPURINOL 44157035518 No Longer Active Corey SEGURA Active CLONIDINE HCL 0.1 MG ORAL TABLET 1 po bid 7 days, then 1/2 t ab po bid 7 days CLONIDINE HCL 56953476198 No Longer Active Corey SEGURA Active COUMADIN 5 MG ORAL TABLET 1 tab PO daily WARFAR IN SODIUM 82438430205 Active Mitch Urbina DO Active COUMADIN 4 MG ORAL TABLET 1 tablet daily WARFAR IN SODIUM 77168048144 No Longer Active Corey SEGURA Active POLYTRIM 38922-0.1 UNIT/ML-% OPHTHALMIC SOLUTION 1 rui p in affected eye every 3 hours while awake x 7 days POLYMYXIN B-TRIMETHOP RIM 06447027882 No Longer Active Corey SEGURA Active LOSARTAN POTASSIUM-HCTZ 100-12.5 MG ORAL TABLET 1 by m outh daily for high blood pressure LOSARTAN POTASSIUM-HCTZ 19202285324 No Longer A ctive Mitch Urbina DO Active LISINOPRIL-HYDROCHLOROTHIAZIDE 20-12.5 MG ORAL TABLET 1 tab by m outh daily LISINOPRIL-HYDROCHLOROTHIAZIDE 32557899059 No Longer Active Mitch Urbina DO Active LISINOPRIL 20 MG ORAL TABLET 1 tab po at HS LIS INOPRIL 97626762340 No Longer Active Mitch Urbina DO Active COUMADIN 5 MG ORAL TABLET 1 by mouth every other day 2 WARFARIN SODIUM 10694447314 No Longer Active Mitch Urbina DO Active COUMADIN 6 MG ORAL TABLET 1 by mouth every other day 2 WARFARIN SODIUM 50824538370 No Longer Active Mitch Urbina DO Active SIMVASTATIN 40 MG ORAL TABLET 1 tab daily at bedtime SIMVASTATIN 75509235923 Active Mitch Urbina DO Active SIMVASTATIN 20 MG ORAL TABLET 1 tab daily at bedtime 2 SIMVASTATIN 04278422196 No Longer Active Mitch Urbina DO Active LOVENOX 100 MG/ML SUBCUTANEOUS SOLUTION One injection twice a da y ENOXAPARIN SODIUM 44606660234 No Longer Active Carmine Yusuf MD Active JANUVIA 50 MG ORAL TABLET Take one by mouth daily SITAGLIPTIN PHOSPHATE 37714364077 Active Mitch Urbina DO Active JANUVIA 100 MG ORAL TABLET 1/2 by mouth every day 2011 SITAGLIPTIN PHOSPHATE 64636179374 No Longer Active Bijal Segal RN Acti ve METFORMIN HCL 500 MG ORAL TABLET 2 by mouth twice daily METFORMIN HCL 01331530339 Active Mitch Urbina DO Active COLCRYS 0.6 MG ORAL TABLET 1 po q 6 hours prn gout pain COLCHICINE 00557185447 No Longer Active Camila Reese Active LISINOPRIL 5 MG ORAL TABLET 1 by mouth every day 11/17 LISINOPRIL 78880895979 No Longer Active Nguyen Perez Active KLOR-CON 20 MEQ ORAL PACKET Take one by mouth daily 09/10/08 POTASSIUM CHLORIDE 59435973696 No Longer Active Nguyen Coekman Active FUROSEMIDE 40 MG ORAL TABLET 1 by mouth daily F UROSEMIDE 43540684178 No Longer Active Nguyen Perez Active PROVIGIL 200 MG ORAL TABLET 1/2 tab po q day MODA FINIL 74015744692 Active Mitch Urbina DO Active PROVIGIL 100 MG ORAL TABLET Take one by mouth daily 08/20/04 MODAFINIL 57515309831 No Longer Active Mitch Urbina DO Active BACTRIM DS 800-160 MG ORAL TABLET 1 tab by mouth twice daily 201 10/19/09 TRIMETHOPRIM-SULFAMETHOXAZOLE 14348527262 No Longer Active Elian Hays MD Active FAMOTIDINE 20 MG ORAL TABLET by mouth twice a day FAMOTIDINE 65450144326 Active Mitch Urbina DO Active ADULT ASPIRIN LOW STRENGTH 81 MG ORAL TABLET DISINTEGR ATING 1 by mouth every daily ASPIRIN 27644978747 Active Mitch Urbina DO Ac tive METOPROLOL TARTRATE 50 MG ORAL TABLET 1 by mouth twice daily METOPROLOL TARTRATE 43199551889 Active Mitch Urbina DO Active BACTRIM DS 800-160 MG ORAL TABLET 1 tab by mouth twice daily 201 10/19/09 BACTRIM DS 800-160 MG ORAL TABLET 471462 TRIMETHOPRIM-SULFAMETHOXAZOLE Inactive PROVIGIL 100 MG ORAL TABLET Take one by mouth daily 08/20/04 PROVIGIL 100 MG ORAL TABLET 721870 MODAFINIL Inactive FUROSEMIDE 40 MG ORAL TABLET 1 by mouth daily FUROSEMIDE 40 MG ORAL TABLET 585622 FUROSEMIDE Inactive KLOR-CON 20 MEQ ORAL PACKET Take one by mouth daily 09/10/08 KLOR- CON 20 MEQ ORAL PACKET 6553112 POTASSIUM CHLORIDE Inactive LISINOPRIL 5 MG ORAL TABLET 1 by mouth every day 11/17 LISINOPRIL 5 MG ORAL TABLET 952523 LISINOPRIL Inactive COLCRYS 0.6 MG ORAL TABLET 1 po q 6 hours prn gout pain COLCRYS 0.6 MG ORAL TABLET 070857 COLCHICINE Inactive JANUVIA 100 MG ORAL TABLET 1/2 by mouth every day 2011 JANUVIA 100 MG ORAL TABLET SITAGLIPTIN PHOSPHATE Inactive SIMVASTATIN 20 MG ORAL TABLET 1 tab daily at bedtime 2 SIMVASTATIN 20 MG ORAL TABLET 984330 SIMVASTATIN Inactive COUMADIN 6 MG ORAL TABLET 1 by mouth every other day 2 COUMADIN 6 MG ORAL TABLET 076682 WARFARIN SODIUM Inactive COUMADIN 5 MG ORAL TABLET 1 by mouth every other day 2 COUMADIN 5 MG ORAL TABLET 424197 WARFARIN SODIUM Inactive LISINOPRIL 20 MG ORAL TABLET 1 tab po at HS LISINOPRIL 20 MG ORAL TABLET 862560 LISINOPRIL Inactive LISINOPRIL-HYDROCHLOROTHIAZIDE 20-12.5 MG ORAL TABLET 1 tab by m outh daily LISINOPRIL-HYDROCHLOROTHIAZIDE 20-12.5 MG ORAL TABLET 469015 LISINOPRIL-HYDROCHLOROTHIAZIDE Inactive POLYTRIM 94464-7.1 UNIT/ML-% OPHTHALMIC SOLUTION 1 rui p in affected eye every 3 hours while awake x 7 days POLYTRIM 1000 0-0.1 UNIT/ML-% OPHTHALMIC SOLUTION 811251 POLYMYXIN B-TRIMETHOPRIM Inactive COUMADIN 4 MG ORAL TABLET 1 tablet daily COUMADIN 4 MG ORAL TABLET 249566 WARFARIN SODIUM Inactive CLONIDINE HCL 0.1 MG ORAL TABLET 1 po bid 7 days, then 1/2 t ab po bid 7 days CLONIDINE HCL 0.1 MG ORAL TABLET 785351 CLONIDIN E HCL Inactive ALLOPURINOL 300 MG ORAL TABLET Take 1 tablet by mouth daily 2012 ALLOPURINOL 300 MG ORAL TABLET 212038 ALLOPURINOL I nactive MECLIZINE HCL 25 MG ORAL TABLET 1 po tid 3 days, then 1/2 ta b tid 3 days MECLIZINE HCL 25 MG ORAL TABLET 540820 MECLIZINE HCL Inactive AMLODIPINE BESYLATE 5 MG ORAL TABLET 1 tablet by mouth daily 201 01/20/04 AMLODIPINE BESYLATE 5 MG ORAL TABLET 522038 AMLODIPINE BESYLATE Inactive KEFLEX 500 MG ORAL CAPSULE 1 po qid K EFLEX 500 MG ORAL CAPSULE 411758 CEPHALEXIN Inactive LOVENOX 100 MG/ML SUBCUTANEOUS SOLUTION One injection twice a da y LOVENOX 100 MG/ML SUBCUTANEOUS SOLUTION 122985 ENOXAPAR IN SODIUM Inactive Vital Signs Date [...] - Chem istry sodium, serum 139 mmol/L 177-216 6295/07/17 potassium, serum 4.2 mmol/L 3.5-5.2 chloride, serum 102 mmol/L 98-107 carbon dioxide, venous blood 28.9 mmol/L 21.0-32 .0 blood glucose 211 mg/dL 65-110 calcium, serum 10.6 mg/dL 8.5-10.1 urea nitrogen, blood 29 mg/dL 7-18 creatinine, serum 1.24 mg/dL 0.60-1.30 sodium, serum 141 mmol/L 168-729 3279/08/07 potassium, serum 4.5 mmol/L 3.5-5.2 chloride, serum [...] ... - Chemistry sodium, serum 144 mmol/L 803-810 0217/06/12 carbon dioxide, venous blood 26.6 mmol/L 21.0-32 [...] HGBA1C - Chemistry cholesterol, serum 136 mg/dL 898-305 5203/12/06 triglyceride, serum, fasting 247 mg/dL 30-200 HDL [...] 1.0-3.5 Encounters Code Encounter Date Provider Facility CPT-85527 Level 3 Est. Patient 18:25:53 CDT Mitch luis [facility] CPT-42870 Level 3 Est. Patient 19:43:34 CDT Mitch luis [facility] CPT-68110 Level 4 Est. Patient 09:30:18 CDT Mitch luis [facility] CPT-63030 Level 3 Est. Patient 15:10:14 CDT oJe kamara [facility] CPT-31052 Level 3 Est. Patient 15:03:46 CDT Joe kamara [facility] CPT-12516 Level 3 Est. Patient 14:21:06 CDT Mitch luis [facility] CPT-29615 Level 3 Est. Patient 14:52:06 CDT Joe kamara [facility] CPT-24427 Level 3 Est. Patient 09:34:30 ELECTROTYPER Mitch Castellano [facility] CPT-28314 Level 3 Est. Patient 09:37:15 CDT Mitch luis [facility] CPT-07070 Level 3 Est. Patient 17:01:00 ELECTROTYPER Mitch luis [facility] CPT-03621 Level 3 Est. Patient 13:53:19 ELECTROTYPER Mitch W Nona luis [facility] CPT-69706 Level 3 Est. Patient 19:19:37 ELECTROTYPER Mitch W L janelle [facility] CPT-66217 Level 3 Est. Patient 13:25:53 ELECTROTYPER Tavo toure MD [facility] CPT-81666 Level 3 Est. Patient 18:17:28 CDT Mitch W L janelle [facility] CPT-39789 Level 3 Est. Patient 15:22:57 CDT Mitch W L janelle [facility] CPT-57015 Level 3 Est. Patient 18:21:50 CDT Mitch W L janelle [facility] CPT-69494 Level 3 Est. Patient 18:20:38 CDT Mitch W L janelle [facility] CPT-66497 Level 3 Est. Patient 15:37:55 CDT Mitch luis [facility] CPT-46480 Level 2 Est. Patient 15:54:44 CDT Carmine benton MD [facility]-58604 Level 3 Est. Patient 21:46:01 ELECTROTYPER Mitch luis [facility] CPT-78879 Level 3 Est. Patient 22:15:50 CDT Mitch luis [facility] CPT-24269 Level 3 Est. Patient 10:48:15 CDT Mitch W L janelle [facility] CPT-67063 Level 3 Est. Patient 23:20:57 CDT Tavo toure MD [facility]-12036 Level 3 Est. Patient 16:26:13 CDT Mitch Ambrose L janelle [facility] Procedures Code Procedure Name Date Entry Date Standard Desc ription CPT-92465 Venipuncture Draw Fee 09:26:17 CDT CPT-08621 PT/INR - LAB USE ONLY 13:32:49 ELECTROTYPER CPT-27950 Venipuncture Draw Fee 13:32:49 ELECTROTYPER CPT-50719 PT/INR - LAB USE ONLY 10:34:49 ELECTROTYPER CPT-35226 Venipuncture Draw Fee 10:34:48 ELECTROTYPER CPT-44015 PT/INR - LAB USE ONLY 09:22:03 ELECTROTYPER CPT-86162 Venipuncture Draw Fee 09:22:02 ELECTROTYPER CPT-73829 Hemoccult IFOBT - LAB USE ONLY 10:27:22 CDT CPT-97612 Venipuncture Draw Fee 08:27:08 CDT CPT-87212 Liver Profile - LAB USE ONLY 08:27:07 CDT 2 CPT-22446 Microalbumin - LAB USE ONLY 08:27:07 CDT 20 25/05/09 CPT-83263 PT/INR - LAB USE ONLY 08:27:07 CDT CPT-21741 HGBA1C - LAB USE ONLY 08:27:07 CDT CPT-00275 CBC - LAB USE ONLY 08:27:07 CDT CPT-86645 Venipuncture Draw Fee 11:09:14 CDT CPT-52510 Venipuncture Draw Fee 08:32:21 ELECTROTYPER CPT-09626 Venipuncture Draw Fee 09:38:56 ELECTROTYPER CPT-57182 No Charge Offi Visit 21:36:07 CDT 1 CPT-68338 Venipuncture Draw Fee 10:13:28 ELECTROTYPER CPT-70312 Venipuncture Draw Fee 08:31:11 CDT CPT-38659 Aspir/Inject Med Joint 18:17:28 CDT CPT-67123 Venipuncture Draw Fee 10:13:30 CDT CPT-34183 Venipuncture Draw Fee 08:31:43 ELECTROTYPER CPT-JTINJ Joint Injection 18:34:50 CDT CPT-50498 Knee 3V 12:25:09 CDT CPT-06063 Venipuncture Draw Fee 12:15:57 CDT CPT-060 Medical Surveillance Exam 21:31:43 CDT 2011 CPT-35317 Venipuncture Draw Fee 08:32:05 ELECTROTYPER CPT-OV Office Visit 18:19:06 CDT
--- OUTSIDE RECORDS SUMMARY | 2020-01-18 12:45 | XMS REPORT | Clinical Summary ---
[...] 1 hour if symptoms persist. COLCHICINE 59 [id number] Active Mitch Urbina DO Active COUMADIN 1 MG TAB 2 tabs orally daily with the 5mg tab to equal 7mg daily WARFARIN SODIUM 72894558289 Active Norma Cazares Active COLCRYS 0.6 MG TABS 1 tab qid prn gout COLCHICINE 54895836211 Active Norma Cazares Active INVOKANA 100 MG ORAL TABS 1 tablet orally daily CANAGLIFLOZIN 40164990860 Active Mitch Urbina DO Active MINOXIDIL 2.5 MG TABS 1 tablet daily for high blood pressure 10/23 MINOXIDIL 50925868675 Active Domi Rivera MA Active AMLODIPINE BESYLATE 5 MG TABS 1 tablet by mouth daily AMLODIPINE BESYLATE 85047492567 Active Mitch Urbina DO Active MECLIZINE HCL 25 MG TAB 1 po tid 3 days, then 1/2 tab tid 3 days MECLIZINE HCL 54139926203 No Longer Active Corey SEGURA Active ALLOPURINOL 300 MG TABS Take 1 tablet by mouth daily 2 ALLOPURINOL 73540564312 No Longer Active Corey SEGURA Activ e CLONIDINE HCL 0.1 MG TABS 1 po bid 7 days, then 1/2 tab po b id 7 days CLONIDINE HCL 74447398968 No Longer Active Corey SEGURA Active COUMADIN 5 MG TABS 1 tab PO daily WARFARIN SODIUM 93540886184 Active Mitch Urbina DO Active COUMADIN 4 MG TABS 1 tablet daily WARFARIN SODI UM 98412016595 No Longer Active Corey SEGURA Active POLYTRIM 74721-3.1 UNIT/ML-% SOLN 1 drop in affected e ye every 3 hours while awake x 7 days POLYMYXIN B-TRIMETHOPRIM 00682516900 N o Longer Active Corey SEGURA Active LOSARTAN POTASSIUM-HCTZ 100-12.5 MG TABS 1 by mouth da rocky for high blood pressure LOSARTAN POTASSIUM-HCTZ 23788769330 Active Stephy Urbina DO Active LISINOPRIL-HYDROCHLOROTHIAZIDE 20-12.5 MG TABS 1 tab by mouth da orcky LISINOPRIL-HYDROCHLOROTHIAZIDE 40714209716 No Longer Active Mitch luis DO Active LISINOPRIL 20 MG TABS 1 tab po at HS LISINOPRIL 24391640499 No Longer Active Mitch Urbina DO Active COUMADIN 5 MG TABS 1 by mouth every other day WARFARIN SODIUM 67746672960 No Longer Active Mitch Urbina DO Active COUMADIN 6 MG TABS 1 by mouth every other day WARFARIN SODIUM 33205423987 No Longer Active Mitch Urbina DO Active SIMVASTATIN 40 MG TABS 1 tab daily at bedtime S IMVASTATIN 08482244508 Active Mitch Urbina DO Active SIMVASTATIN 20 MG TABS 1 tab daily at bedtime S IMVASTATIN 24355488240 No Longer Active Mitch Urbina DO Active LOVENOX 100 MG/ML SC SOLN One injection twice a day 09/15/15 ENOXAPARIN SODIUM 42889744182 No Longer Active Carmine Navarrete ctive JANUVIA 50 MG TABS Take one by mouth daily DIEGO GLIPTIN PHOSPHATE 10690600323 Active Mitch Urbina DO Active JANUVIA 100 MG TABS 1/2 by mouth every day DIEGO GLIPTIN PHOSPHATE 70772082534 No Longer Active Bijal Segal RN Active METFORMIN HCL 500 MG TABS 2 by mouth twice daily METFORMIN HCL 46084177241 Active Mitch Urbina DO Active GLIMEPIRIDE 4 MG TABS 1 tab po bid GLIMEPIRIDE 285440 33700 Active Mitch Arnol Carlitos DO Active COLCRYS 0.6 MG TABS 1 po q 6 hours prn gout pain 03/02 COLCHICINE 50813352661 No Longer Active Camila Reese Active LISINOPRIL 5 MG TABS 1 by mouth every day LISIN OPRIL 51239577860 No Longer Active Nguyen Perez Active KLOR-CON 20 MEQ PACK Take one by mouth daily 8 POTASSIUM CHLORIDE 71790448018 No Longer Active Nguyenmolly Perez Active FUROSEMIDE 40 MG TABS 1 by mouth daily FUROSEMI DE 64054675325 No Longer Active Nguyen Perez Active PROVIGIL 200 MG TABS 1/2 tab po q day MODAFINIL 41800 009786 Active Kathie Juan RPT,RMA Active PROVIGIL 100 MG TABS Take one by mouth daily MO DAFINIL 36468949357 No Longer Active Mitch Urbina DO Active BACTRIM DS 800-160 MG TAB 1 tab by mouth twice daily 2 TRIMETHOPRIM-SULFAMETHOXAZOLE 89758600351 No Longer Active Renan Hays MD Active FAMOTIDINE 20 MG TABS by mouth twice a day FAMOTI DINE 00819709981 Active Mitch Urbina DO Active ADULT ASPIRIN LOW STRENGTH 81 MG TBDP 1 by mouth every daily ASPIRIN 26439224674 Active Mitch Urbina DO Active METOPROLOL TARTRATE 50 MG TABS 1 by mouth twice daily METOPROLOL TARTRATE 85190194558 Active Mitch Urbina DO Active BACTRIM DS 800-160 MG TAB 1 tab by mouth twice daily 2 BACTRIM DS 800-160 MG TAB 005101 TRIMETHOPRIM-SULFAMETHOXAZOLE Inac tive PROVIGIL 100 MG TABS Take one by mouth daily 4 PROVIGIL 100 MG TABS 899113 MODAFINIL Inactive FUROSEMIDE 40 MG TABS 1 by mouth daily FU ROSEMIDE 40 MG TABS 435533 FUROSEMIDE Inactive KLOR-CON 20 MEQ PACK Take one by mouth daily 8 KLOR-CON 20 MEQ PACK 489484 POTASSIUM CHLORIDE Inactive LISINOPRIL 5 MG TABS 1 by mouth every day LISINOPRIL 5 MG TABS 905109 LISINOPRIL Inactive COLCRYS 0.6 MG TABS 1 po q 6 hours prn gout pain 03/02 COLCRYS 0.6 MG TABS 220831 COLCHICINE Inactive JANUVIA 100 MG TABS 1/2 by mouth every day JANUVI A 100 MG TABS SITAGLIPTIN PHOSPHATE Inactive SIMVASTATIN 20 MG TABS 1 tab daily at bedtime SIMVASTATIN 20 MG TABS 941723 SIMVASTATIN Inactive COUMADIN 6 MG TABS 1 by mouth every other day COUMADIN 6 MG TABS 625960 WARFARIN SODIUM Inactive COUMADIN 5 MG TABS 1 by mouth every other day COUMADIN 5 MG TABS 360034 WARFARIN SODIUM Inactive LISINOPRIL 20 MG TABS 1 tab po at HS [place]I NOPRIL 20 MG TABS 974815 LISINOPRIL Inactive LISINOPRIL-HYDROCHLOROTHIAZIDE 20-12.5 MG TABS 1 tab by mouth da [place] LISINOPRIL-HYDROCHLOROTHIAZIDE 20-12.5 MG TABS 875489 LISINOPRIL-HYDROCHLOROTHIAZIDE Inactive POLYTRIM 37410-4.1 UNIT/ML-% SOLN 1 drop in affected e ye every 3 hours while awake x 7 days POLYTRIM 11092-4.1 UNIT/ML-% SOLN 68201 7 POLYMYXIN B-TRIMETHOPRIM Inactive COUMADIN 4 MG TABS 1 tablet daily COUMADIN 4 MG TABS 731286 WARFARIN SODIUM Inactive CLONIDINE HCL 0.1 MG TABS 1 po bid 7 days, then 1/2 tab po b id 7 days CLONIDINE HCL 0.1 MG TABS 992659 CLONIDINE HCL I nactive ALLOPURINOL 300 MG TABS Take 1 tablet by mouth daily 2 ALLOPURINOL 300 MG TABS 238211 ALLOPURINOL Inactive MECLIZINE HCL 25 MG TAB 1 po tid 3 days, then 1/2 tab tid 3 days MECLIZINE HCL 25 MG TAB 080721 MECLIZINE HCL Inactive LOVENOX 100 MG/ML SC SOLN One injection twice a day 09/15/15 LOVENOX 100 MG/ML SC SOLN 072028 ENOXAPARIN SODIUM Inactive Vital Signs Date Name [...] CBC - Chemistry cholesterol, serum 136 mg/dL 395-146 8698/08/09 triglyceride, serum, fasting 187 mg/dL 30-200 HDL [...] 1.0-3.5 Encounters Code Encounter Date Provider Facility CPT-58001 Level 3 Est. Patient 14:21:06 CDT Mitch luis [facility] CPT-67988 Level 3 Est. Patient 14:52:06 [facility] Level 3 Est. Patient 09:34:30 MEAT SPECIALIST Mitch luis [facility] CPT-99303 Level 3 Est. Patient 09:37:15 CDT Mitch Ambrose L janelle [facility] CPT-89744 Level 3 Est. Patient 17:01:00 MEAT SPECIALIST Mitch W L janelle [facility] CPT-81521 Level 3 Est. Patient 13:53:19 MEAT SPECIALIST Mitch W L janelle [facility] CPT-14012 Level 3 Est. Patient 19:19:37 MEAT SPECIALIST Mitch W L janelle [facility] CPT-87641 Level 3 Est. Patient 13:25:53 MEAT SPECIALIST Tavo toure MD [facility] CPT-25658 Level 3 Est. Patient 18:17:28 CDT Mitch W L janelle [facility] CPT-81566 Level 3 Est. Patient 15:22:57 CDT Mitch Ambrose L janelle [facility] CPT-02463 Level 3 Est. Patient 18:21:50 CDT Mitch W L janelle [facility] CPT-52390 Level 3 Est. Patient 18:20:38 CDT Mitch W L ee [facility] CPT-29291 Level 3 Est. Patient 15:37:55 CDT Mitch luis [facility] CPT-02725 Level 2 Est. Patient 15:54:44 CDT Carmine benton MD [facility] CPT-44177 Level 3 Est. Patient 21:46:01 MEAT SPECIALIST Mitch luis [facility] CPT-37109 Level 3 Est. Patient 22:15:50 CDT Mitch luis [facility] CPT-45512 Level 3 Est. Patient 10:48:15 CDT Mitch luis [facility] CPT-87057 Level 3 Est. Patient 23:20:57 CDT Tavo toure MD [facility] CPT-44008 Level 3 Est. Patient 16:26:13 CDT Mitch luis [facility] Procedures Code Procedure Name Date Entry Date Standard Desc ription CPT-58320 PT/INR - LAB USE ONLY 13:32:49 MEAT SPECIALIST CPT-07015 Venipuncture Draw Fee 13:32:49 MEAT SPECIALIST CPT-95257 PT/INR - LAB USE ONLY 10:34:49 MEAT SPECIALIST CPT-97401 Venipuncture Draw Fee 10:34:48 MEAT SPECIALIST CPT-83375 PT/INR - LAB USE ONLY 09:22:03 MEAT SPECIALIST CPT-73440 Venipuncture Draw Fee 09:22:02 MEAT SPECIALIST CPT-80282 Hemoccult IFOBT - LAB USE ONLY 10:27:22 CDT CPT-91593 Venipuncture Draw Fee 08:27:08 CDT CPT-84090 Liver Profile - LAB USE ONLY 08:27:07 CDT 2 CPT-31324 Microalbumin - LAB USE ONLY 08:27:07 CDT 20 25/05/09 CPT-83090 PT/INR - LAB USE ONLY 08:27:07 CDT CPT-60924 HGBA1C - LAB USE ONLY 08:27:07 CDT CPT-48498 CBC - LAB USE ONLY 08:27:07 CDT CPT-74774 Venipuncture Draw Fee 11:09:14 CDT CPT-00361 Venipuncture Draw Fee 08:32:21 MEAT SPECIALIST CPT-04578 Venipuncture Draw Fee 09:38:56 MEAT SPECIALIST CPT-30473 No Charge Offi Visit 21:36:07 CDT 1 CPT-91775 Venipuncture Draw Fee 10:13:28 MEAT SPECIALIST CPT-82005 Venipuncture Draw Fee 08:31:11 CDT CPT-60706 Aspir/Inject Med Joint 18:17:28 CDT CPT-31873 Venipuncture Draw Fee 10:13:30 CDT CPT-10450 Venipuncture Draw Fee 08:31:43 MEAT SPECIALIST CPT-JTINJ Joint Injection 18:34:50 CDT CPT-47206 Knee 3V 12:25:09 CDT CPT-81175 Venipuncture Draw Fee 12:15:57 CDT CPT-060 Medical Surveillance Exam 21:31:43 CDT 2011 CPT-66575 Venipuncture Draw Fee 08:32:05 MEAT SPECIALIST CPT-OV Office Visit 18:19:06 CDT
--- OUTSIDE RECORDS SUMMARY | 2020-01-18 12:46 | XMS REPORT | Clinical Summary ---
[...] Coronary atherosclerosis of unspecified type of vessel, [place] or graft EDEMA 782.3 Resolved Mitch Urbina [...] 500 MG CAP 1 po qid CEPHALEXIN 091591723 20 No Longer Active Micth Urbina DO Active LOSARTAN POTASSIUM 100 MG TABS 1 pill by mouth daily, for bl ood pressure LOSARTAN POTASSIUM 45948158447 Active Ana Wallace Active AMLODIPINE BESYLATE 5 MG TABS 1 tablet by mouth daily AMLODIPINE BESYLATE 88411898073 No Longer Active Joe Williamson APRN Active MITIGARE 0.6 MG ORAL CAPS 2 capsules at onset of gout pain, then take one capsule at 1 hour if symptoms persist. COLCHICINE 59 389309073 Active Mitch Urbina DO Active COUMADIN 1 MG TAB 2 tabs orally daily with the 5mg tab to equal 7mg daily WARFARIN SODIUM 82223302057 Active Mitch Urbina DO Active COLCRYS 0.6 MG TABS 1 tab qid prn gout COLCHICINE 80720441847 Active Norma Cazares Active INVOKANA 100 MG ORAL TABS 1 tablet orally daily CANAGLIFLOZIN 91492039514 Active Mitch Urbina DO Active MINOXIDIL 2.5 MG TABS 1 tablet daily for high blood pressure 10/23 MINOXIDIL 86059101513 Active Mitch Urbina DO Active MECLIZINE HCL 25 MG TAB 1 po tid 3 days, then 1/2 tab tid 3 days MECLIZINE HCL 93489312258 No Longer Active Corey SEGURA Active ALLOPURINOL 300 MG TABS Take 1 tablet by mouth daily 2 ALLOPURINOL 09093704060 No Longer Active Corey SEGURA Activ e CLONIDINE HCL 0.1 MG TABS 1 po bid 7 days, then 1/2 tab po b id 7 days CLONIDINE HCL 42671111570 No Longer Active Corey SEGURA Active COUMADIN 5 MG TABS 1 tab PO daily WARFARIN SODIUM 75876787940 Active Mitch Urbina DO Active COUMADIN 4 MG TABS 1 tablet daily WARFARIN SODI UM 74581030961 No Longer Active Corey SEGURA Active POLYTRIM 79500-2.1 UNIT/ML-% SOLN 1 drop in affected e ye every 3 hours while awake x 7 days POLYMYXIN B-TRIMETHOPRIM 04405923236 N o Longer Active Corey SEGURA Active LOSARTAN POTASSIUM-HCTZ 100-12.5 MG TABS 1 by mouth [place] for high blood pressure LOSARTAN POTASSIUM-HCTZ 78822566708 No Longer A ctive Mitch Urbina DO Active LISINOPRIL-HYDROCHLOROTHIAZIDE 20-12.5 MG TABS 1 tab by mouth da rocky LISINOPRIL-HYDROCHLOROTHIAZIDE 30559359802 No Longer Active Mitch luis DO Active LISINOPRIL 20 MG TABS 1 tab po at HS LISINOPRIL 78296339087 No Longer Active Mitch Urbina DO Active COUMADIN 5 MG TABS 1 by mouth every other day WARFARIN SODIUM 95309527819 No Longer Active Mitch Urbina DO Active COUMADIN 6 MG TABS 1 by mouth every other day WARFARIN SODIUM 35549956619 No Longer Active Mitch Urbina DO Active SIMVASTATIN 40 MG TABS 1 tab daily at bedtime S IMVASTATIN 18091679833 Active Mitch Urbina DO Active SIMVASTATIN 20 MG TABS 1 tab daily at bedtime S IMVASTATIN 09297469478 No Longer Active Mitch Urbina DO Active LOVENOX 100 MG/ML SC SOLN One injection twice a day 09/15/15 ENOXAPARIN SODIUM 88211890133 No Longer Active Carmine Navarrete ctive JANUVIA 50 MG TABS Take one by mouth daily DIEGO GLIPTIN PHOSPHATE 95778613138 Active Mitch Urbina DO Active JANUVIA 100 MG TABS 1/2 by mouth every day DIEGO GLIPTIN PHOSPHATE 85609768339 No Longer Active Bijal Segal RN Active METFORMIN HCL 500 MG TABS 2 by mouth twice daily METFORMIN HCL 34028210086 Active Mitch Urbina DO Active GLIMEPIRIDE 4 MG TABS 1 tab po bid GLIMEPIRIDE 618084 42140 Active Mitch Urbina DO Active COLCRYS 0.6 MG TABS 1 po q 6 hours prn gout pain 03/02 COLCHICINE 92083170473 No Longer Active Camila Reese Active LISINOPRIL 5 MG TABS 1 by mouth every day LISIN OPRIL 43399320804 No Longer Active Nguyen Perez Active KLOR-CON 20 MEQ PACK Take one by mouth daily 8 POTASSIUM CHLORIDE 50897788033 No Longer Active Nguyen Perez Active FUROSEMIDE 40 MG TABS 1 by mouth daily FUROSEMI DE 74590909932 No Longer Active Nguyen Perez Active PROVIGIL 200 MG TABS 1/2 tab po q day MODAFINIL 06458 473444 Active Mitch Urbina DO Active PROVIGIL 100 MG TABS Take one by mouth daily MO DAFINIL 71435211467 No Longer Active Mitch Urbina DO Active BACTRIM DS 800-160 MG TAB 1 tab by mouth twice daily 2 TRIMETHOPRIM-SULFAMETHOXAZOLE 27748431007 No Longer Active Renan Hays MD Active FAMOTIDINE 20 MG TABS by mouth twice a day FAMOTI DINE 97542130823 Active Mitch Urbina DO Active ADULT ASPIRIN LOW STRENGTH 81 MG TBDP 1 by mouth every daily ASPIRIN 51338985382 Active Mitch Urbina DO Active METOPROLOL TARTRATE 50 MG TABS 1 by mouth twice daily METOPROLOL TARTRATE 31656491078 Active Mitch Urbina DO Active BACTRIM DS 800-160 MG TAB 1 tab by mouth twice daily 2 BACTRIM DS 800-160 MG TAB 068569 TRIMETHOPRIM-SULFAMETHOXAZOLE Inac tive PROVIGIL 100 MG TABS Take one by mouth daily 4 PROVIGIL 100 MG TABS 385000 MODAFINIL Inactive FUROSEMIDE 40 MG TABS 1 by mouth daily FU ROSEMIDE 40 MG TABS 271790 FUROSEMIDE Inactive KLOR-CON 20 MEQ PACK Take one by mouth daily 8 KLOR-CON 20 MEQ PACK POTASSIUM CHLORIDE Inactive LISINOPRIL 5 MG TABS 1 by mouth every day LISINOPRIL 5 MG TABS 201075 LISINOPRIL Inactive COLCRYS 0.6 MG TABS 1 po q 6 hours prn gout pain 03/02 COLCRYS 0.6 MG TABS 532834 COLCHICINE Inactive JANUVIA 100 MG TABS 1/2 by mouth every day JANUVI A 100 MG TABS SITAGLIPTIN PHOSPHATE Inactive SIMVASTATIN 20 MG TABS 1 tab daily at bedtime SIMVASTATIN 20 MG TABS 032494 SIMVASTATIN Inactive COUMADIN 6 MG TABS 1 by mouth every other day COUMADIN 6 MG TABS 438984 WARFARIN SODIUM Inactive COUMADIN 5 MG TABS 1 by mouth every other day COUMADIN 5 MG TABS 806933 WARFARIN SODIUM Inactive LISINOPRIL 20 MG TABS 1 tab po at HS KOKI NOPRIL 20 MG TABS 024596 LISINOPRIL Inactive LISINOPRIL-HYDROCHLOROTHIAZIDE 20-12.5 MG TABS 1 tab by mouth da rocky LISINOPRIL-HYDROCHLOROTHIAZIDE 20-12.5 MG TABS 252622 LISINOPRIL-HYDROCHLOROTHIAZIDE Inactive POLYTRIM 90816-7.1 UNIT/ML-% SOLN 1 drop in affected e ye every 3 hours while awake x 7 days POLYTRIM 42157-9.1 UNIT/ML-% SOLN 31193 7 POLYMYXIN B-TRIMETHOPRIM Inactive COUMADIN 4 MG TABS 1 tablet daily COUMADIN 4 MG TABS 294865 WARFARIN SODIUM Inactive CLONIDINE HCL 0.1 MG TABS 1 po bid 7 days, then 1/2 tab po b id 7 days CLONIDINE HCL 0.1 MG TABS 758242 CLONIDINE HCL I nactive ALLOPURINOL 300 MG TABS Take 1 tablet by mouth daily 2 ALLOPURINOL 300 MG TABS 432517 ALLOPURINOL Inactive MECLIZINE HCL 25 MG TAB 1 po tid 3 days, then 1/2 tab tid 3 days MECLIZINE HCL 25 MG TAB 068937 MECLIZINE HCL Inactive AMLODIPINE BESYLATE 5 MG TABS 1 tablet by mouth daily AMLODIPINE BESYLATE 5 MG TABS 111994 AMLODIPINE BESYLATE Inactive KEFLEX 500 MG CAP 1 po qid KEFLEX 500 MG CAP 30 9114 CEPHALEXIN Inactive LOVENOX 100 MG/ML SC SOLN One injection twice a day 09/15/15 LOVENOX 100 MG/ML SC SOLN 158221 ENOXAPARIN SODIUM Inactive Vital Signs Date Name [...] - Chem istry sodium, serum 139 mmol/L 164-410 2869/07/17 potassium, serum 4.2 mmol/L 3.5-5.2 chloride, serum 102 mmol/L 98-107 carbon dioxide, venous blood 28.9 mmol/L 21.0-32 .0 blood glucose 211 mg/dL 65-110 calcium, serum 10.6 mg/dL 8.5-10.1 urea nitrogen, blood 29 mg/dL 7-18 creatinine, serum 1.24 mg/dL 0.60-1.30 sodium, serum 141 mmol/L 526-701 1657/08/07 potassium, serum 4.5 mmol/L 3.5-5.2 chloride, serum [...] ... - Chemistry sodium, serum 144 mmol/L 201-922 8969/06/12 carbon dioxide, venous blood 26.6 mmol/L 21.0-32 [...] 1.0-3.5 Encounters Code Encounter Date Provider Facility CPT-38782 Level 3 Est. Patient 18:25:53 CDT Mitch luis [facility] CPT-60225 Level 3 Est. Patient 19:43:34 CDT Mitch luis [facility] CPT-03631 Level 4 Est. Patient 09:30:18 CDT Mitch luis [facility] CPT-50106 Level 3 Est. Patient 15:10:14 CDT Joe Jason anh [facility] CPT-16758 Level 3 Est. Patient 15:03:46 CDT Joe Jason anh [facility] CPT-80129 Level 3 Est. Patient 14:21:06 CDT Mitch luis [facility] CPT-07933 Level 3 Est. Patient 14:52:06 CDT Joe Jason kamara [facility] CPT-30233 Level 3 Est. Patient 09:34:30 ED SPECIAL EDUCATION TEACHER Mitch luis [facility] CPT-38667 Level 3 Est. Patient 09:37:15 CDT Mitch luis [facility] CPT-40407 Level 3 Est. Patient 17:01:00 ED SPECIAL EDUCATION TEACHER Mitch luis [facility] CPT-12816 Level 3 Est. Patient 13:53:19 ED SPECIAL EDUCATION TEACHER Mitch luis [facility] CPT-96723 Level 3 Est. Patient 19:19:37 ED SPECIAL EDUCATION TEACHER Mitch luis [facility] CPT-30353 Level 3 Est. Patient 13:25:53 ED SPECIAL EDUCATION TEACHER Tavo toure MD [facility] CPT-34163 Level 3 Est. Patient 18:17:28 CDT Mitch luis [facility] CPT-46328 Level 3 Est. Patient 15:22:57 CDT Mitch luis [facility] CPT-68192 Level 3 Est. Patient 18:21:50 CDT Mitch luis [facility] CPT-38793 Level 3 Est. Patient 18:20:38 CDT Mitch Arnol luis [facility] CPT-44730 Level 3 Est. Patient 15:37:55 CDT Mitch luis [facility] CPT-08331 Level 2 Est. Patient 15:54:44 CDT Carmine benton MD [facility] CPT-73362 Level 3 Est. Patient 21:46:01 ED SPECIAL EDUCATION TEACHER Mitch luis [facility] CPT-07786 Level 3 Est. Patient 22:15:50 CDT Mitch luis [facility] CPT-87453 Level 3 Est. Patient 10:48:15 CDT Mitch luis [facility] CPT-51187 Level 3 Est. Patient 23:20:57 CDT Tavo toure MD [facility] CPT-13972 Level 3 Est. Patient 16:26:13 CDT Mitch Arnol luis [facility] Procedures Code Procedure Name Date Entry Date Standard Desc ription CPT-28198 Venipuncture Draw Fee 09:26:17 CDT CPT-72526 PT/INR - LAB USE ONLY 13:32:49 ED SPECIAL EDUCATION TEACHER CPT-51789 Venipuncture Draw Fee 13:32:49 ED SPECIAL EDUCATION TEACHER CPT-20328 PT/INR - LAB USE ONLY 10:34:49 ED SPECIAL EDUCATION TEACHER CPT-84363 Venipuncture Draw Fee 10:34:48 ED SPECIAL EDUCATION TEACHER CPT-56725 PT/INR - LAB USE ONLY 09:22:03 ED SPECIAL EDUCATION TEACHER CPT-14131 Venipuncture Draw Fee 09:22:02 ED SPECIAL EDUCATION TEACHER CPT-73898 Hemoccult IFOBT - LAB USE ONLY 10:27:22 CDT CPT-57264 Venipuncture Draw Fee 08:27:08 CDT CPT-89566 Liver Profile - LAB USE ONLY 08:27:07 CDT 2 CPT-65388 Microalbumin - LAB USE ONLY 08:27:07 CDT 20 25/05/09 CPT-79178 PT/INR - LAB USE ONLY 08:27:07 CDT CPT-92894 HGBA1C - LAB USE ONLY 08:27:07 CDT CPT-60865 CBC - LAB USE ONLY 08:27:07 CDT CPT-00694 Venipuncture Draw Fee 11:09:14 CDT CPT-44530 Venipuncture Draw Fee 08:32:21 ED SPECIAL EDUCATION TEACHER CPT-89507 Venipuncture Draw Fee 09:38:56 ED SPECIAL EDUCATION TEACHER CPT-71502 No Charge Offi Visit 21:36:07 CDT 1 CPT-90609 Venipuncture Draw Fee 10:13:28 ED SPECIAL EDUCATION TEACHER CPT-62282 Venipuncture Draw Fee 08:31:11 CDT CPT-31051 Aspir/Inject Med Joint 18:17:28 CDT CPT-81396 Venipuncture Draw Fee 10:13:30 CDT CPT-32056 Venipuncture Draw Fee 08:31:43 ED SPECIAL EDUCATION TEACHER CPT-JTINJ Joint Injection 18:34:50 CDT CPT-96907 Knee 3V 12:25:09 CDT CPT-42844 Venipuncture Draw Fee 12:15:57 CDT CPT-060 Medical Surveillance Exam 21:31:43 CDT 2011 CPT-62811 Venipuncture Draw Fee 08:32:05 ED SPECIAL EDUCATION TEACHER CPT-OV Office Visit 18:19:06 CDT
--- OUTSIDE RECORDS SUMMARY | 2020-01-18 12:46 | XMS REPORT | Clinical Summary ---
Author Author Admin, Mitch Leon Organization [facility] Address Unknown Phone Unavailable Allergies, Adverse [...] Coronary atherosclerosis of unspecified type of vessel, [place] or graft EDEMA 782.3 Resolved Mitch Urbina [...] ( 6mg total ) 2015 WARFARIN SODIUM 37677334320 Active Domi Rivera MA Acti ve INVOKANA 100 MG ORAL TABS 1 tablet orally daily CANAGLIFLOZIN 02625444453 Active Kathie Juan RPT,RMA Active MINOXIDIL 2.5 MG TABS 1 tablet daily for high blood pressure 10/23 MINOXIDIL 66749088793 Active Mitch Urbina DO Active AMLODIPINE BESYLATE 5 MG TABS 1 tablet by mouth daily AMLODIPINE BESYLATE 78685466437 Active Domi Rivera MA Active MECLIZINE HCL 25 MG TAB 1 po tid 3 days, then 1/2 tab tid 3 days MECLIZINE HCL 97676341445 No Longer Active Corey SEGURA Active ALLOPURINOL 300 MG TABS Take 1 tablet by mouth daily 2 ALLOPURINOL 74657055680 No Longer Active Corey SEGURA Activ e CLONIDINE HCL 0.1 MG TABS 1 po bid 7 days, then 1/2 tab po b id 7 days CLONIDINE HCL 32100009620 No Longer Active Corey SEGURA Active COUMADIN 5 MG TABS 1 tab PO daily WARFARIN SODIUM 37363149845 Active Domi Rivera MA Active COUMADIN 4 MG TABS 1 tablet daily WARFARIN SODI UM 49280759316 No Longer Active Corey SEGURA Active POLYTRIM 83017-4.1 UNIT/ML-% SOLN 1 drop in affected e ye every 3 hours while awake x 7 days POLYMYXIN B-TRIMETHOPRIM 73545820383 N o Longer Active Corey ESGURA Active LOSARTAN POTASSIUM-HCTZ 100-12.5 MG TABS 1 by mouth da rocky for high blood pressure LOSARTAN POTASSIUM-HCTZ 03091899593 Active Domi Rivera MA Active LISINOPRIL-HYDROCHLOROTHIAZIDE 20-12.5 MG TABS 1 tab by mouth da rocky LISINOPRIL-HYDROCHLOROTHIAZIDE 43167510409 No Longer Active Mitch luis DO Active LISINOPRIL 20 MG TABS 1 tab po at HS LISINOPRIL 10448525738 No Longer Active Mitch Urbina DO Active COUMADIN 5 MG TABS 1 by mouth every other day WARFARIN SODIUM 15573107354 No Longer Active Mitch Urbina DO Active COUMADIN 6 MG TABS 1 by mouth every other day WARFARIN SODIUM 82528413283 No Longer Active Mitch Urbina DO Active COLCRYS 0.6 MG TABS 1 tab qid prn gout COLCHICINE 03304333899 Active Corey SEGURA Active SIMVASTATIN 40 MG TABS 1 tab daily at bedtime S IMVASTATIN 41133825998 Active Domi Rivera MA Active SIMVASTATIN 20 MG TABS 1 tab daily at bedtime S IMVASTATIN 75607697930 No Longer Active Mithc Urbina DO Active LOVENOX 100 MG/ML SC SOLN One injection twice a day 09/15/15 ENOXAPARIN SODIUM 77262554879 No Longer Active Carmine Navarrete ctive JANUVIA 50 MG TABS Take one by mouth daily DIEGO GLIPTIN PHOSPHATE 94931084265 Active Domi Rivera MA Active JANUVIA 100 MG TABS 1/2 by mouth every day DIEGO GLIPTIN PHOSPHATE 96092024416 No Longer Active Bijal Segal RN Active METFORMIN HCL 500 MG TABS 2 by mouth twice daily METFORMIN HCL 00285443280 Active Domi Rivera MA Active GLIMEPIRIDE 4 MG TABS 1 tab po bid GLIMEPIRIDE 118996 51776 Active Domi Rivera MA Active COLCRYS 0.6 MG TABS 1 po q 6 hours prn gout pain 03/02 COLCHICINE 44323472832 No Longer Active Camila Reese Active LISINOPRIL 5 MG TABS 1 by mouth every day LISIN OPRIL 40649164134 No Longer Active Nguyen Perez Active KLOR-CON 20 MEQ PACK Take one by mouth daily 8 POTASSIUM CHLORIDE 06056993511 No Longer Active Nguyenmolly Perez Active FUROSEMIDE 40 MG TABS 1 by mouth daily FUROSEMI DE 80530708142 No Longer Active Nguyenmolly Perez Active PROVIGIL 200 MG TABS 1/2 tab po q day MODAFINIL 43644 768412 Active Domi Rivera MA Active PROVIGIL 100 MG TABS Take one by mouth daily MO DAFINIL 79961493748 No Longer Active Mitch Urbina DO Active BACTRIM DS 800-160 MG TAB 1 tab by mouth twice daily 2 TRIMETHOPRIM-SULFAMETHOXAZOLE 49308576981 No Longer Active Renan Hays MD Active FAMOTIDINE 20 MG TABS by mouth twice a day FAMOTI DINE 43991125423 Active Mitch Urbina DO Active ADULT ASPIRIN LOW STRENGTH 81 MG TBDP 1 by mouth every daily ASPIRIN 29171377132 Active Mitch Urbina DO Active METOPROLOL TARTRATE 50 MG TABS 1 by mouth twice daily METOPROLOL TARTRATE 82836181437 Active Domi Rivera MA Active BACTRIM DS 800-160 MG TAB 1 tab by mouth twice daily 2 BACTRIM DS 800-160 MG TAB 037434 TRIMETHOPRIM-SULFAMETHOXAZOLE Inac tive PROVIGIL 100 MG TABS Take one by mouth daily 4 PROVIGIL 100 MG TABS 841311 MODAFINIL Inactive FUROSEMIDE 40 MG TABS 1 by mouth daily FU ROSEMIDE 40 MG TABS 042885 FUROSEMIDE Inactive KLOR-CON 20 MEQ PACK Take one by mouth daily 8 KLOR-CON 20 MEQ PACK 584964 POTASSIUM CHLORIDE Inactive LISINOPRIL 5 MG TABS 1 by mouth every day LISINOPRIL 5 MG TABS 660051 LISINOPRIL Inactive COLCRYS 0.6 MG TABS 1 po q 6 hours prn gout pain 03/02 COLCRYS 0.6 MG TABS 385675 COLCHICINE Inactive JANUVIA 100 MG TABS 1/2 by mouth every day JANUVI A 100 MG TABS SITAGLIPTIN PHOSPHATE Inactive SIMVASTATIN 20 MG TABS 1 tab daily at bedtime SIMVASTATIN 20 MG TABS 942915 SIMVASTATIN Inactive COUMADIN 6 MG TABS 1 by mouth every other day COUMADIN 6 MG TABS 441700 WARFARIN SODIUM Inactive COUMADIN 5 MG TABS 1 by mouth every other day COUMADIN 5 MG TABS 284279 WARFARIN SODIUM Inactive LISINOPRIL 20 MG TABS 1 tab po at HS KOKI NOPRIL 20 MG TABS 820207 LISINOPRIL Inactive LISINOPRIL-HYDROCHLOROTHIAZIDE 20-12.5 MG TABS 1 tab by mouth da rocky LISINOPRIL-HYDROCHLOROTHIAZIDE 20-12.5 MG TABS 304022 LISINOPRIL-HYDROCHLOROTHIAZIDE Inactive POLYTRIM 13714-4.1 UNIT/ML-% SOLN 1 drop in affected e ye every 3 hours while awake x 7 days POLYTRIM 54643-0.1 UNIT/ML-% SOLN 16936 7 POLYMYXIN B-TRIMETHOPRIM Inactive COUMADIN 4 MG TABS 1 tablet daily COUMADIN 4 MG TABS 243340 WARFARIN SODIUM Inactive CLONIDINE HCL 0.1 MG TABS 1 po bid 7 days, then 1/2 tab po b id 7 days CLONIDINE HCL 0.1 MG TABS 574550 CLONIDINE HCL I nactive ALLOPURINOL 300 MG TABS Take 1 tablet by mouth daily 2 ALLOPURINOL 300 MG TABS 697895 ALLOPURINOL Inactive MECLIZINE HCL 25 MG TAB 1 po tid 3 days, then 1/2 tab tid 3 days MECLIZINE HCL 25 MG TAB 852186 MECLIZINE HCL Inactive LOVENOX 100 MG/ML SC SOLN One injection twice a day 09/15/15 LOVENOX 100 MG/ML SC SOLN 683017 ENOXAPARIN SODIUM Inactive Vital Signs Date Name [...] Ag - Chemistry sodium, serum 141 mmol/L 084-649 0394/07/06 potassium, serum 4.4 mmol/L 3.5-5.2 chloride, serum [...] - Chem istry sodium, serum 136 mmol/L 381-300 5669/01/14 carbon dioxide, venous blood 25.4 mmol/L 21.0-32 [...] 7.0 % 4.3-6.0 cholesterol, serum 120 mg/dL 254-150 3908/07/06 triglyceride, serum, fasting 186 mg/dL 30-200 HDL [...] 1.0-3.5 Encounters Code Encounter Date Provider Facility CPT-70503 Level 3 Est. Patient 09:34:30 STEVEDORING SUPERINTENDENT Mitch luis [facility] CPT-01566 Level 3 Est. Patient 09:37:15 CDT Mitch luis [facility] CPT-06140 Level 3 Est. Patient 17:01:00 STEVEDORING SUPERINTENDENT Mitch luis [facility] CPT-14478 Level 3 Est. Patient 13:53:19 STEVEDORING SUPERINTENDENT Mitch luis [facility] CPT-14559 Level 3 Est. Patient 19:19:37 STEVEDORING SUPERINTENDENT Mitch luis [facility] CPT-24161 Level 3 Est. Patient 13:25:53 STEVEDORING SUPERINTENDENT Tavo toure MD [facility] CPT-79678 Level 3 Est. Patient 18:17:28 CDT Mitch luis [facility] CPT-59266 Level 3 Est. Patient 15:22:57 CDT Mitch luis [facility] CPT-51067 Level 3 Est. Patient 18:21:50 CDT Mitch luis [facility] CPT-27669 Level 3 Est. Patient 18:20:38 CDT Mitch luis [facility] CPT-47869 Level 3 Est. Patient 15:37:55 CDT Mitch luis [facility] CPT-60318 Level 2 Est. Patient 15:54:44 CDT Carmine benton MD [facility] CPT-88781 Level 3 Est. Patient 21:46:01 STEVEDORING SUPERINTENDENT Mitch luis [facility] CPT-11086 Level 3 Est. Patient 22:15:50 CDT Mitch luis [facility] CPT-92144 Level 3 Est. Patient 10:48:15 CDT Mitch luis [facility] CPT-28919 Level 3 Est. Patient 23:20:57 CDT Tavo toure MD [facility] CPT-63930 Level 3 Est. Patient 16:26:13 CDT Mitch luis [facility] Procedures Code Procedure Name Date Entry Date Standard Desc ription CPT-13552 Venipuncture Draw Fee 08:32:21 STEVEDORING SUPERINTENDENT CPT-47990 Venipuncture Draw Fee 09:38:56 STEVEDORING SUPERINTENDENT CPT-08589 No Charge Offi Visit 21:36:07 CDT 1 CPT-50188 Venipuncture Draw Fee 10:13:28 STEVEDORING SUPERINTENDENT CPT-37411 Venipuncture Draw Fee 08:31:11 CDT CPT-22125 Aspir/Inject Med Joint 18:17:28 CDT CPT-40072 Venipuncture Draw Fee 10:13:30 CDT CPT-00025 Venipuncture Draw Fee 08:31:43 STEVEDORING SUPERINTENDENT CPT-JTINJ Joint Injection 18:34:50 CDT CPT-35632 Knee 3V 12:25:09 CDT CPT-58463 Venipuncture Draw Fee 12:15:57 CDT CPT-060 Medical Surveillance Exam 21:31:43 CDT 2011 CPT-12602 Venipuncture Draw Fee 08:32:05 STEVEDORING SUPERINTENDENT CPT-OV Office Visit 18:19:06 CDT
--- OUTSIDE RECORDS SUMMARY | 2020-01-18 12:46 | XMS REPORT | Clinical Summary ---
[...] Coronary atherosclerosis of unspecified type of vessel, [place] or graft EDEMA 782.3 Resolved Mitch Urbina [...] TABS 1 tab qid prn gout COLCHICINE 68938707891 Active Kathie Juan RPT,RMA Active COUMADIN 1 MG TAB take 1 tab daily with 5mg tab. ( 6mg total ) 2015 WARFARIN SODIUM 58021083917 Active Domi Rivera MA Acti ve INVOKANA 100 MG ORAL TABS 1 tablet orally daily CANAGLIFLOZIN 42435083771 Active Kathie Juan RPT,RMA Active MINOXIDIL 2.5 MG TABS 1 tablet daily for high blood pressure 10/23 MINOXIDIL 20111003102 Active Mitch Urbina DO Active AMLODIPINE BESYLATE 5 MG TABS 1 tablet by mouth daily AMLODIPINE BESYLATE 19573236535 Active Domi Rivera MA Active MECLIZINE HCL 25 MG TAB 1 po tid 3 days, then 1/2 tab tid 3 days MECLIZINE HCL 00016242395 No Longer Active Corey SEGURA Active ALLOPURINOL 300 MG TABS Take 1 tablet by mouth daily 2 ALLOPURINOL 03833359426 No Longer Active Corey SEGURA Activ e CLONIDINE HCL 0.1 MG TABS 1 po bid 7 days, then 1/2 tab po b id 7 days CLONIDINE HCL 84334949813 No Longer Active Corey SEGURA Active COUMADIN 5 MG TABS 1 tab PO daily WARFARIN SODIUM 30305877604 Active Domi Rivera MA Active COUMADIN 4 MG TABS 1 tablet daily WARFARIN SODI UM 05819709732 No Longer Active Corey SEGURA Active POLYTRIM 06664-2.1 UNIT/ML-% SOLN 1 drop in affected e ye every 3 hours while awake x 7 days POLYMYXIN B-TRIMETHOPRIM 30098485898 N o Longer Active Corey SEGURA Active LOSARTAN POTASSIUM-HCTZ 100-12.5 MG TABS 1 by mouth [place] for high blood pressure LOSARTAN POTASSIUM-HCTZ 36003609128 Active Domi Rivera MA Active LISINOPRIL-HYDROCHLOROTHIAZIDE 20-12.5 MG TABS 1 tab by mouth da rocky LISINOPRIL-HYDROCHLOROTHIAZIDE 67539693901 No Longer Active Mitch luis DO Active LISINOPRIL 20 MG TABS 1 tab po at HS LISINOPRIL 69052249009 No Longer Active Mitch Urbina DO Active COUMADIN 5 MG TABS 1 by mouth every other day WARFARIN SODIUM 24190679105 No Longer Active Mitch Urbina DO Active COUMADIN 6 MG TABS 1 by mouth every other day WARFARIN SODIUM 06734075732 No Longer Active Mitch Urbina DO Active SIMVASTATIN 40 MG TABS 1 tab daily at bedtime S IMVASTATIN 57592867641 Active Domi Rivera MA Active SIMVASTATIN 20 MG TABS 1 tab daily at bedtime S IMVASTATIN 61504439338 No Longer Active Mitch Urbina DO Active LOVENOX 100 MG/ML SC SOLN One injection twice a day 09/15/15 ENOXAPARIN SODIUM 35544386969 No Longer Active Carmine Navarrete ctive JANUVIA 50 MG TABS Take one by mouth daily DIEGO GLIPTIN PHOSPHATE 59724410532 Active Domi Rivera MA Active JANUVIA 100 MG TABS 1/2 by mouth every day DIEGO GLIPTIN PHOSPHATE 70673559421 No Longer Active Bijal Segal RN Active METFORMIN HCL 500 MG TABS 2 by mouth twice daily METFORMIN HCL 48777414861 Active Mitch Urbina DO Active GLIMEPIRIDE 4 MG TABS 1 tab po bid GLIMEPIRIDE 926345 96035 Active Mitch Urbina DO Active COLCRYS 0.6 MG TABS 1 po q 6 hours prn gout pain 03/02 COLCHICINE 66390569324 No Longer Active Camila Reese Active LISINOPRIL 5 MG TABS 1 by mouth every day LISIN OPRIL 93677541899 No Longer Active Nguyenmolly Perez Active KLOR-CON 20 MEQ PACK Take one by mouth daily 8 POTASSIUM CHLORIDE 11057885871 No Longer Active Nguyen Ana Active FUROSEMIDE 40 MG TABS 1 by mouth daily FUROSEMI DE 60817681803 No Longer Active Nguyen Ana Active PROVIGIL 200 MG TABS 1/2 tab po q day MODAFINIL 04925 822223 Active Domi Rivera MA Active PROVIGIL 100 MG TABS Take one by mouth daily MO DAFINIL 68849414653 No Longer Active Mitch Urbina DO Active BACTRIM DS 800-160 MG TAB 1 tab by mouth twice daily 2 TRIMETHOPRIM-SULFAMETHOXAZOLE 37268202758 No Longer Active Renan Hays MD Active FAMOTIDINE 20 MG TABS by mouth twice a day FAMOTI DINE 69611681160 Active Mitch Urbina DO Active ADULT ASPIRIN LOW STRENGTH 81 MG TBDP 1 by mouth every daily ASPIRIN 26426532243 Active Mitch Urbina DO Active METOPROLOL TARTRATE 50 MG TABS 1 by mouth twice daily METOPROLOL TARTRATE 85051342600 Active Domi Rivera MA Active BACTRIM DS 800-160 MG TAB 1 tab by mouth twice daily 2 BACTRIM DS 800-160 MG TAB 060093 TRIMETHOPRIM-SULFAMETHOXAZOLE Inac tive PROVIGIL 100 MG TABS Take one by mouth daily 4 PROVIGIL 100 MG TABS 181929 MODAFINIL Inactive FUROSEMIDE 40 MG TABS 1 by mouth daily FU ROSEMIDE 40 MG TABS 006431 FUROSEMIDE Inactive KLOR-CON 20 MEQ PACK Take one by mouth daily 8 KLOR-CON 20 MEQ PACK 251632 POTASSIUM CHLORIDE Inactive LISINOPRIL 5 MG TABS 1 by mouth every day LISINOPRIL 5 MG TABS 474726 LISINOPRIL Inactive COLCRYS 0.6 MG TABS 1 po q 6 hours prn gout pain 03/02 COLCRYS 0.6 MG TABS 854424 COLCHICINE Inactive JANUVIA 100 MG TABS 1/2 by mouth every day JANUVI A 100 MG TABS SITAGLIPTIN PHOSPHATE Inactive SIMVASTATIN 20 MG TABS 1 tab daily at bedtime SIMVASTATIN 20 MG TABS 567724 SIMVASTATIN Inactive COUMADIN 6 MG TABS 1 by mouth every other day COUMADIN 6 MG TABS 252440 WARFARIN SODIUM Inactive COUMADIN 5 MG TABS 1 by mouth every other day COUMADIN 5 MG TABS 394769 WARFARIN SODIUM Inactive LISINOPRIL 20 MG TABS 1 tab po at HS KOKI NOPRIL 20 MG TABS 307058 LISINOPRIL Inactive LISINOPRIL-HYDROCHLOROTHIAZIDE 20-12.5 MG TABS 1 tab by mouth da rocky LISINOPRIL-HYDROCHLOROTHIAZIDE 20-12.5 MG TABS 352393 LISINOPRIL-HYDROCHLOROTHIAZIDE Inactive POLYTRIM 11470-5.1 UNIT/ML-% SOLN 1 drop in affected e ye every 3 hours while awake x 7 days POLYTRIM 85221-2.1 UNIT/ML-% SOLN 35206 7 POLYMYXIN B-TRIMETHOPRIM Inactive COUMADIN 4 MG TABS 1 tablet daily COUMADIN 4 MG TABS 534747 WARFARIN SODIUM Inactive CLONIDINE HCL 0.1 MG TABS 1 po bid 7 days, then 1/2 tab po b id 7 days CLONIDINE HCL 0.1 MG TABS 499985 CLONIDINE HCL I nactive ALLOPURINOL 300 MG TABS Take 1 tablet by mouth daily 2 ALLOPURINOL 300 MG TABS 013036 ALLOPURINOL Inactive MECLIZINE HCL 25 MG TAB 1 po tid 3 days, then 1/2 tab tid 3 days MECLIZINE HCL 25 MG TAB 735022 MECLIZINE HCL Inactive LOVENOX 100 MG/ML SC SOLN One injection twice a day 09/15/15 LOVENOX 100 MG/ML SC SOLN 696367 ENOXAPARIN SODIUM Inactive Vital Signs Date Name [...] - Chem istry sodium, serum 136 mmol/L 501-532 7375/01/14 carbon dioxide, venous blood 25.4 mmol/L 21.0-32 [...] 1.0-3.5 Encounters Code Encounter Date Provider Facility CPT-27630 Level 3 Est. Patient 09:34:30 AFTER [employer]CHOOL CAREGIVER Mitch luis DO [facility] CPT-81548 Level 3 Est. Patient 09:37:15 CDT Mitch luis DO [facility] CPT-22499 Level 3 Est. Patient 17:01:00 AFTER SCHOOL CAREGIVER Mitch luis DO [facility] CPT-68941 Level 3 Est. Patient 13:53:19 AFTER SCHOOL CAREGIVER Mitch luis [facility] CPT-01163 Level 3 Est. Patient 19:19:37 AFTER SCHOOL CAREGIVER Mitch luis [facility] CPT-19266 Level 3 Est. Patient 13:25:53 [employer]OL CAREGIVER Tavo toure MD [facility] CPT-37280 Level 3 Est. Patient 18:17:28 CDT Mitch luis [facility] CPT-62834 Level 3 Est. Patient 15:22:57 CDT Mitch luis [facility] CPT-72054 Level 3 Est. Patient 18:21:50 CDT Mitch luis [facility] CPT-93742 Level 3 Est. Patient 18:20:38 CDT Mitch luis [facility] CPT-59608 Level 3 Est. Patient 15:37:55 CDT Mitch luis [facility] CPT-50999 Level 2 Est. Patient 15:54:44 CDT Carmine benton MD [facility] CPT-14524 Level 3 Est. Patient 21:46:01 AFTER SCHOOL CAREGIVER Mitch luis [facility] CPT-54311 Level 3 Est. Patient 22:15:50 CDT Mitch luis [facility] CPT-96379 Level 3 Est. Patient 10:48:15 CDT Mitch luis [facility] CPT-46715 Level 3 Est. Patient 23:20:57 CDT Tavo toure MD [facility] CPT-66813 Level 3 Est. Patient 16:26:13 CDT Mitch Arnol luis [facility] Procedures Code Procedure Name Date Entry Date Standard Desc ription CPT-99568 Venipuncture Draw Fee 08:32:21 [employer]CHOOL CAREGIVER CPT-52637 Venipuncture Draw Fee 09:38:56 [employer]OL CAREGIVER CPT-05581 No Charge Offi Visit 21:36:07 CDT 1 CPT-68693 Venipuncture Draw Fee 10:13:28 [employer]CHOOL CAREGIVER CPT-04341 Venipuncture Draw Fee 08:31:11 CDT CPT-24768 Aspir/Inject Med Joint 18:17:28 CDT CPT-78221 Venipuncture Draw Fee 10:13:30 CDT CPT-93855 Venipuncture Draw Fee 08:31:43 AFTER SCHOOL CAREGIVER CPT-JTINJ Joint Injection 18:34:50 CDT CPT-55839 Knee 3V 12:25:09 CDT CPT-38450 Venipuncture Draw Fee 12:15:57 CDT CPT-060 Medical Surveillance Exam 21:31:43 CDT 2011 CPT-88479 Venipuncture Draw Fee 08:32:05 AFTER SCHOOL CAREGIVER CPT-OV Office Visit 18:19:06 CDT
--- OUTSIDE RECORDS SUMMARY | 2020-01-18 12:46 | XMS REPORT | Clinical Summary ---
[...] atherosclerosis of unspecified type of vessel, [place] or graft EDEMA 782.3 Active Mitch Urbina [...] 1 tablet by mouth daily AMLODIPINE BESYLATE 92448765717 Active Mitch Urbina DO Active MECLIZINE HCL 25 MG TAB 1 po tid 3 days, then 1/2 tab tid 3 days MECLIZINE HCL 76332061645 No Longer Active oCrey SEGURA Active ALLOPURINOL 300 MG TABS Take 1 tablet by mouth daily 2 ALLOPURINOL 71206370744 No Longer Active Corey SEGURA Activ e CLONIDINE HCL 0.1 MG TABS 1 po bid 7 days, then 1/2 tab po b id 7 days CLONIDINE HCL 36887972376 No Longer Active Corey SEGURA Active COUMADIN 5 MG TABS 1 tab PO daily WARFARIN SODIUM 72622043556 Active Kathie Juan RPT,RMA Active COUMADIN 4 MG TABS 1 tablet daily WARFARIN SODI UM 75707644014 No Longer Active Corey SEGURA Active POLYTRIM 74966-7.1 UNIT/ML-% SOLN 1 drop in affected e ye every 3 hours while awake x 7 days POLYMYXIN B-TRIMETHOPRIM 19956422535 N o Longer Active Corey SEGURA Active LOSARTAN POTASSIUM-HCTZ 100-12.5 MG TABS 1 by mouth da rocky for high blood pressure LOSARTAN POTASSIUM-HCTZ 36778322012 Active Stephy Urbina DO Active LISINOPRIL-HYDROCHLOROTHIAZIDE 20-12.5 MG TABS 1 tab by mouth da rocky LISINOPRIL-HYDROCHLOROTHIAZIDE 73904990977 No Longer Active Mitch luis DO Active LISINOPRIL 20 MG TABS 1 tab po at HS LISINOPRIL 12901840889 No Longer Active Mitch Urbina DO Active COUMADIN 5 MG TABS 1 by mouth every other day WARFARIN SODIUM 51063518077 No Longer Active Mitch Urbina DO Active COUMADIN 6 MG TABS 1 by mouth every other day WARFARIN SODIUM 06469416737 No Longer Active Mitch Urbina DO Active COLCRYS 0.6 MG TABS 1 tab qid prn gout COLCHICINE 03255043046 Active Corey SEGURA Active SIMVASTATIN 40 MG TABS 1 tab daily at bedtime S IMVASTATIN 56757112335 Active Mitch Urbina DO Active SIMVASTATIN 20 MG TABS 1 tab daily at bedtime S IMVASTATIN 91797830690 No Longer Active Mitch Urbina DO Active LOVENOX 100 MG/ML SC SOLN One injection twice a day 09/15/15 ENOXAPARIN SODIUM 20969892078 No Longer Active Carmine Navarrete ctive JANUVIA 50 MG TABS Take one by mouth daily DIEGO GLIPTIN PHOSPHATE 16886660048 Active Domi Rivera MA Active JANUVIA 100 MG TABS 1/2 by mouth every day DIEGO GLIPTIN PHOSPHATE 48386503046 No Longer Active Bijal Segal RN Active METFORMIN HCL 500 MG TABS 2 by mouth twice daily METFORMIN HCL 32531248549 Active Mitch Urbina DO Active GLIMEPIRIDE 4 MG TABS 1 tab po bid GLIMEPIRIDE 161745 13604 Active Mitch Urbina DO Active COLCRYS 0.6 MG TABS 1 po q 6 hours prn gout pain 03/02 COLCHICINE 84323915185 No Longer Active Camila Reese Active LISINOPRIL 5 MG TABS 1 by mouth every day LISIN OPRIL 75822388300 No Longer Active Nguyenmolly Perez Active KLOR-CON 20 MEQ PACK Take one by mouth daily 8 POTASSIUM CHLORIDE 04910492642 No Longer Active Nguyen Ana Active FUROSEMIDE 40 MG TABS 1 by mouth daily FUROSEMI DE 21910182130 No Longer Active Nguyen Perez Active PROVIGIL 200 MG TABS 1/2 tab po q day MODAFINIL 01424 097930 Active Kathie Juan RPT,RMA Active PROVIGIL 100 MG TABS Take one by mouth daily MO DAFINIL 06836113115 No Longer Active Mitch Urbina DO Active BACTRIM DS 800-160 MG TAB 1 tab by mouth twice daily 2 TRIMETHOPRIM-SULFAMETHOXAZOLE 00664377557 No Longer Active Renan Hays MD Active FAMOTIDINE 20 MG TABS by mouth twice a day FAMOTI DINE 17143061851 Active Mitch Urbina DO Active ADULT ASPIRIN LOW STRENGTH 81 MG TBDP 1 by mouth every daily ASPIRIN 85342732197 Active Mitch Urbina DO Active METOPROLOL TARTRATE 50 MG TABS 1 by mouth twice daily METOPROLOL TARTRATE 21995930538 Active Kathie Juan RPT,RMA Acti ve BACTRIM DS 800-160 MG TAB 1 tab by mouth twice daily 2 BACTRIM DS 800-160 MG TAB TRIMETHOPRIM-SULFAMETHOXAZOLE Inac tive PROVIGIL 100 MG TABS Take one by mouth daily 4 PROVIGIL 100 MG TABS 624749 MODAFINIL Inactive FUROSEMIDE 40 MG TABS 1 by mouth daily FU ROSEMIDE 40 MG TABS 147566 FUROSEMIDE Inactive KLOR-CON 20 MEQ PACK Take one by mouth daily 8 KLOR-CON 20 MEQ PACK 968502 POTASSIUM CHLORIDE Inactive LISINOPRIL 5 MG TABS 1 by mouth every day LISINOPRIL 5 MG TABS 991877 LISINOPRIL Inactive COLCRYS 0.6 MG TABS 1 po q 6 hours prn gout pain 03/02 COLCRYS 0.6 MG TABS 272031 COLCHICINE Inactive JANUVIA 100 MG TABS 1/2 by mouth every day JANUVI A 100 MG TABS SITAGLIPTIN PHOSPHATE Inactive SIMVASTATIN 20 MG TABS 1 tab daily at bedtime SIMVASTATIN 20 MG TABS 409165 SIMVASTATIN Inactive COUMADIN 6 MG TABS 1 by mouth every other day COUMADIN 6 MG TABS 007978 WARFARIN SODIUM Inactive COUMADIN 5 MG TABS 1 by mouth every other day COUMADIN 5 MG TABS 595536 WARFARIN SODIUM Inactive LISINOPRIL 20 MG TABS 1 tab po at HS KOKI NOPRIL 20 MG TABS 190349 LISINOPRIL Inactive LISINOPRIL-HYDROCHLOROTHIAZIDE 20-12.5 MG TABS 1 tab by mouth da rocky LISINOPRIL-HYDROCHLOROTHIAZIDE 20-12.5 MG TABS 812176 LISINOPRIL-HYDROCHLOROTHIAZIDE Inactive POLYTRIM 26885-0.1 UNIT/ML-% SOLN 1 drop in affected e ye every 3 hours while awake x 7 days POLYTRIM 51657-2.1 UNIT/ML-% SOLN 59899 7 POLYMYXIN B-TRIMETHOPRIM Inactive COUMADIN 4 MG TABS 1 tablet daily COUMADIN 4 MG TABS 754682 WARFARIN SODIUM Inactive CLONIDINE HCL 0.1 MG TABS 1 po bid 7 days, then 1/2 tab po b id 7 days CLONIDINE HCL 0.1 MG TABS 996861 CLONIDINE HCL I nactive ALLOPURINOL 300 MG TABS Take 1 tablet by mouth daily 2 ALLOPURINOL 300 MG TABS 128669 ALLOPURINOL Inactive MECLIZINE HCL 25 MG TAB 1 po tid 3 days, then 1/2 tab tid 3 days MECLIZINE HCL 25 MG TAB 012569 MECLIZINE HCL Inactive LOVENOX 100 MG/ML SC SOLN One injection twice a day 09/15/15 LOVENOX 100 MG/ML SC SOLN 492265 ENOXAPARIN SODIUM Inactive Vital Signs Date Name [...] Ag - Chemistry sodium, serum 141 mmol/L 604-076 2847/07/06 potassium, serum 4.4 mmol/L 3.5-5.2 chloride, serum [...] Panel - Chemistry sodium, serum 137 mmol/L 756-537 9804/11/14 potassium, serum 4.4 mmol/L 3.5-5.2 chloride, serum [...] 8.0 % 4.3-6.0 cholesterol, serum 130 mg/dL 766-312 4861/11/14 triglyceride, serum, fasting 288 mg/dL 30-200 HDL cholesterol, serum 33 mg/dL 32-96 LDL cholesterol, serum 39 mg/dL 0-130 Lab Report: Comp. Metabolic Panel, HGBA1 C, Lipid Panel, Prothrombin Time - Chemistry sodium, serum 136 mmol/L 567-544 7023/12/02 potassium, serum 4.4 mmol/L 3.5-5.2 chloride, serum [...] 7.6 % 4.3-6.0 cholesterol, serum 117 mg/dL 322-612 3753/12/02 triglyceride, serum, fasting 226 mg/dL 30-200 HDL [...] 7.0 % 4.3-6.0 cholesterol, serum 120 mg/dL 561-685 1743/07/06 triglyceride, serum, fasting 186 mg/dL 30-200 HDL [...] 1.0-3.5 Encounters Code Encounter Date Provider Facility CPT-99375 Level 3 Est. Patient 09:37:15 CDT Mitch Ambrose L janelle [facility] CPT-81370 Level 3 Est. Patient 17:01:00 HOSE MENDER Mitch luis [facility] CPT-40535 Level 3 Est. Patient 13:53:19 HOSE MENDER Mitch luis [facility] CPT-04476 Level 3 Est. Patient 19:19:37 HOSE MENDER Mitch W L janelle [facility] CPT-93321 Level 3 Est. Patient 13:25:53 HOSE MENDER Tavo toure MD [facility]-26647 Level 3 Est. Patient 18:17:28 CDT Mitch luis [facility] CPT-33999 Level 3 Est. Patient 15:22:57 CDT Mitch Ambrose L janelle [facility] CPT-85310 Level 3 Est. Patient 18:21:50 CDT Mitch W L janelle [facility] CPT-29749 Level 3 Est. Patient 18:20:38 CDT Mitch W L ajnelle [facility]-63008 Level 3 Est. Patient 15:37:55 CDT Mitch W L ee [facility] CPT-36327 Level 2 Est. Patient 15:54:44 CDT Carmine benton MD [facility]-90580 Level 3 Est. Patient 21:46:01 HOSE MENDER Mitch Arnol Nona luis [facility] CPT-00045 Level 3 Est. Patient 22:15:50 CDT Mitch Arnol Castellano janelle [facility] CPT-96842 Level 3 Est. Patient 10:48:15 CDT Mitch Arnol Castellano janelle [facility] CPT-63171 Level 3 Est. Patient 23:20:57 CDT Tavo toure MD [facility] CPT-51250 Level 3 Est. Patient 16:26:13 CDT Mitch luis [facility] Procedures Code Procedure Name Date Entry Date Standard Desc ription CPT-05102 No Charge Offi Visit 21:36:07 CDT 1 CPT-09189 Venipuncture Draw Fee 10:13:28 HOSE MENDER CPT-58292 Venipuncture Draw Fee 08:31:11 CDT CPT-53763 Aspir/Inject Med Joint 18:17:28 CDT CPT-94709 Venipuncture Draw Fee 10:13:30 CDT CPT-66612 Venipuncture Draw Fee 08:31:43 HOSE MENDER CPT-JTINJ Joint Injection 18:34:50 CDT CPT-96733 Knee 3V 12:25:09 CDT CPT-35789 Venipuncture Draw Fee 12:15:57 CDT CPT-060 Medical Surveillance Exam 21:31:43 CDT 2011 CPT-86195 Venipuncture Draw Fee 08:32:05 HOSE MENDER CPT-OV Office Visit 18:19:06 CDT
--- OUTSIDE RECORDS SUMMARY | 2020-01-18 12:47 | XMS REPORT | Clinical Summary ---
Author Author Admin, Mitch Leon Organization [facility] Address Unknown Phone Unavailable Allergies, Adverse [...] Coronary atherosclerosis of unspecified type of vessel, [place] or graft EDEMA 782.3 Active Mitch [...] 1 tablet by mouth daily AMLODIPINE BESYLATE 39939943836 Active Mitch Urbina DO Active MECLIZINE HCL 25 MG TAB 1 po tid 3 days, then 1/2 tab tid 3 days MECLIZINE HCL 87966890629 No Longer Active Corey SEGURA Active ALLOPURINOL 300 MG TABS Take 1 tablet by mouth daily 2 ALLOPURINOL 09857297374 No Longer Active Corey SEGURA Activ e CLONIDINE HCL 0.1 MG TABS 1 po bid 7 days, then 1/2 tab po b id 7 days CLONIDINE HCL 88921567287 No Longer Active Corey SEGURA Active COUMADIN 5 MG TABS 1 tab PO daily WARFARIN SODIUM 56958459686 Active Mitch Urbina DO Active COUMADIN 4 MG TABS 1 tablet daily WARFARIN SODI UM 41298401361 No Longer Active Corey SEGURA Active POLYTRIM 76590-4.1 UNIT/ML-% SOLN 1 drop in affected e ye every 3 hours while awake x 7 days POLYMYXIN B-TRIMETHOPRIM 08556026238 N o Longer Active Corey SEGURA Active LOSARTAN POTASSIUM-HCTZ 100-12.5 MG TABS 1 by mouth [place] for high blood pressure LOSARTAN POTASSIUM-HCTZ 67063683996 Active Stephy Urbina DO Active LISINOPRIL-HYDROCHLOROTHIAZIDE 20-12.5 MG TABS 1 tab by mouth da rocky LISINOPRIL-HYDROCHLOROTHIAZIDE 11349650918 No Longer Active Mitch luis DO Active LISINOPRIL 20 MG TABS 1 tab po at HS LISINOPRIL 88212904935 No Longer Active Mitch Urbina DO Active COUMADIN 5 MG TABS 1 by mouth every other day WARFARIN SODIUM 46798022662 No Longer Active Mitch Urbina DO Active COUMADIN 6 MG TABS 1 by mouth every other day WARFARIN SODIUM 21661785789 No Longer Active Mitch Urbina DO Active COLCRYS 0.6 MG TABS 1 tab qid prn gout COLCHICINE 44126518120 Active Corey SEGURA Active SIMVASTATIN 40 MG TABS 1 tab daily at bedtime S IMVASTATIN 91203585604 Active Mitch Urbina DO Active SIMVASTATIN 20 MG TABS 1 tab daily at bedtime S IMVASTATIN 15509843721 No Longer Active Mitch Urbina DO Active LOVENOX 100 MG/ML SC SOLN One injection twice a day 09/15/15 ENOXAPARIN SODIUM 55990583687 No Longer Active Carmine Navarrete ctive JANUVIA 50 MG TABS Take one by mouth daily DIEGO GLIPTIN PHOSPHATE 40437489655 Active Mitch Urbina DO Active JANUVIA 100 MG TABS 1/2 by mouth every day DIEGO GLIPTIN PHOSPHATE 46579334990 No Longer Active Bijal Segal RN Active METFORMIN HCL 500 MG TABS 2 by mouth twice daily METFORMIN HCL 69442588042 Active Corey Arias PA Active GLIMEPIRIDE 4 MG TABS 1 tab po bid GLIMEPIRIDE 366587 11051 Active Mitch Urbina DO Active COLCRYS 0.6 MG TABS 1 po q 6 hours prn gout pain 03/02 COLCHICINE 12857033914 No Longer Active Camila Reese Active LISINOPRIL 5 MG TABS 1 by mouth every day LISIN OPRIL 74710930627 No Longer Active Nguyenmolly Perez Active KLOR-CON 20 MEQ PACK Take one by mouth daily 8 POTASSIUM CHLORIDE 04822137336 No Longer Active Nguyenmolly Perez Active FUROSEMIDE 40 MG TABS 1 by mouth daily FUROSEMI DE 85663789889 No Longer Active Nguyen Perez Active PROVIGIL 200 MG TABS 1/2 tab po q day MODAFINIL 49309 839015 Active Mitch Urbina DO Active PROVIGIL 100 MG TABS Take one by mouth daily MO DAFINIL 26075322436 No Longer Active Mitch Urbina DO Active BACTRIM DS 800-160 MG TAB 1 tab by mouth twice daily 2 TRIMETHOPRIM-SULFAMETHOXAZOLE 53775612234 No Longer Active Renan Hays MD Active FAMOTIDINE 20 MG TABS by mouth twice a day FAMOTI DINE 62880280522 Active Mitch Urbina DO Active ADULT ASPIRIN LOW STRENGTH 81 MG TBDP 1 by mouth every daily ASPIRIN 30619670172 Active Micth Urbina DO Active METOPROLOL TARTRATE 50 MG TABS 1 by mouth twice daily METOPROLOL TARTRATE 56964550408 Active Curly Coker MD Active BACTRIM DS 800-160 MG TAB 1 tab by mouth twice daily 2 BACTRIM DS 800-160 MG TAB TRIMETHOPRIM-SULFAMETHOXAZOLE Inac tive PROVIGIL 100 MG TABS Take one by mouth daily 4 PROVIGIL 100 MG TABS 771615 MODAFINIL Inactive FUROSEMIDE 40 MG TABS 1 by mouth daily FU ROSEMIDE 40 MG TABS 512410 FUROSEMIDE Inactive KLOR-CON 20 MEQ PACK Take one by mouth daily 8 KLOR-CON 20 MEQ PACK 612631 POTASSIUM CHLORIDE Inactive LISINOPRIL 5 MG TABS 1 by mouth every day LISINOPRIL 5 MG TABS 450139 LISINOPRIL Inactive COLCRYS 0.6 MG TABS 1 po q 6 hours prn gout pain 03/02 COLCRYS 0.6 MG TABS 424910 COLCHICINE Inactive JANUVIA 100 MG TABS 1/2 by mouth every day JANUVI A 100 MG TABS SITAGLIPTIN PHOSPHATE Inactive SIMVASTATIN 20 MG TABS 1 tab daily at bedtime SIMVASTATIN 20 MG TABS 508044 SIMVASTATIN Inactive COUMADIN 6 MG TABS 1 by mouth every other day COUMADIN 6 MG TABS 084948 WARFARIN SODIUM Inactive COUMADIN 5 MG TABS 1 by mouth every other day COUMADIN 5 MG TABS 401863 WARFARIN SODIUM Inactive LISINOPRIL 20 MG TABS 1 tab po at HS KOKI NOPRIL 20 MG TABS 230997 LISINOPRIL Inactive LISINOPRIL-HYDROCHLOROTHIAZIDE 20-12.5 MG TABS 1 tab by mouth da rocky LISINOPRIL-HYDROCHLOROTHIAZIDE 20-12.5 MG TABS 244213 LISINOPRIL-HYDROCHLOROTHIAZIDE Inactive POLYTRIM 43198-4.1 UNIT/ML-% SOLN 1 drop in affected e ye every 3 hours while awake x 7 days POLYTRIM 27744-0.1 UNIT/ML-% SOLN 14117 7 POLYMYXIN B-TRIMETHOPRIM Inactive COUMADIN 4 MG TABS 1 tablet daily COUMADIN 4 MG TABS 997240 WARFARIN SODIUM Inactive CLONIDINE HCL 0.1 MG TABS 1 po bid 7 days, then 1/2 tab po b id 7 days CLONIDINE HCL 0.1 MG TABS 254024 CLONIDINE HCL I nactive ALLOPURINOL 300 MG TABS Take 1 tablet by mouth daily 2 ALLOPURINOL 300 MG TABS 687132 ALLOPURINOL Inactive MECLIZINE HCL 25 MG TAB 1 po tid 3 days, then 1/2 tab tid 3 days MECLIZINE HCL 25 MG TAB 839408 MECLIZINE HCL Inactive LOVENOX 100 MG/ML SC SOLN One injection twice a day 09/15/15 LOVENOX 100 MG/ML SC SOLN 531516 ENOXAPARIN SODIUM Inactive Vital Signs Date Name [...] Acid - Chemistry sodium, serum 136 mmol/L 944-271 3249/07/25 potassium, serum 4.6 mmol/L 3.5-5.2 chloride, serum [...] Ag - Chemistry sodium, serum 141 mmol/L 183-930 8954/07/06 potassium, serum 4.4 mmol/L 3.5-5.2 chloride, serum [...] Panel - Chemistry sodium, serum 137 mmol/L 613-171 1572/11/14 potassium, serum 4.4 mmol/L 3.5-5.2 chloride, serum [...] 8.0 % 4.3-6.0 cholesterol, serum 130 mg/dL 039-435 7118/11/14 triglyceride, serum, fasting 288 mg/dL 30-200 HDL cholesterol, serum 33 mg/dL 32-96 LDL cholesterol, serum 39 mg/dL 0-130 Lab Report: Comp. Metabolic Panel, HGBA1 C, Lipid Panel, Prothrombin Time - Chemistry sodium, serum 136 mmol/L 483-576 8477/12/02 potassium, serum 4.4 mmol/L 3.5-5.2 chloride, serum [...] 7.6 % 4.3-6.0 cholesterol, serum 117 mg/dL 616-193 5974/12/02 triglyceride, serum, fasting 226 mg/dL 30-200 HDL [...] 7.0 % 4.3-6.0 cholesterol, serum 120 mg/dL 825-824 8196/07/06 triglyceride, serum, fasting 186 mg/dL 30-200 HDL [...] 1.0-3.5 Encounters Code Encounter Date Provider Facility CPT-81410 Level 3 Est. Patient 09:37:15 CDT Mitch luis DO [facility] CPT-76680 Level 3 Est. Patient 17:01:00 BARREL CHARRER Mitch Ambrose L janelle [facility] CPT-26356 Level 3 Est. Patient 13:53:19 BARREL CHARRER Mitch luis [facility] CPT-80220 Level 3 Est. Patient 19:19:37 BARREL CHARRER Mitch luis [facility] CPT-06798 Level 3 Est. Patient 13:25:53 BARREL CHARRER Tavo toure MD [facility] CPT-51170 Level 3 Est. Patient 18:17:28 CDT Mitch luis [facility] CPT-04588 Level 3 Est. Patient 15:22:57 CDT Mitch luis [facility] CPT-77599 Level 3 Est. Patient 18:21:50 CDT Mitch Arnol L janelle [facility] CPT-92434 Level 3 Est. Patient 18:20:38 CDT Mitch Arnol L janelle [facility] CPT-01592 Level 3 Est. Patient 15:37:55 CDT Mitch W L janelle [facility] CPT-05001 Level 2 Est. Patient 15:54:44 CDT Carmine benton MD [facility]-36994 Level 3 Est. Patient 21:46:01 BARREL CHARRER Mitch luis [facility] CPT-16184 Level 3 Est. Patient 22:15:50 CDT Mitch luis [facility] CPT-15727 Level 3 Est. Patient 10:48:15 CDT Mitch luis [facility] CPT-49346 Level 3 Est. Patient 23:20:57 CDT Tavo toure MD [facility] CPT-62946 Level 3 Est. Patient 16:26:13 CDT Mitch luis [facility] Procedures Code Procedure Name Date Entry Date Standard Desc ription CPT-86127 No Charge Offi Visit 21:36:07 CDT 1 CPT-87111 Venipuncture Draw Fee 10:13:28 BARREL CHARRER CPT-45841 Venipuncture Draw Fee 08:31:11 CDT CPT-14066 Aspir/Inject Med Joint 18:17:28 CDT CPT-62350 Venipuncture Draw Fee 10:13:30 CDT CPT-66401 Venipuncture Draw Fee 08:31:43 BARREL CHARRER CPT-JTINJ Joint Injection 18:34:50 CDT CPT-33992 Knee 3V 12:25:09 CDT CPT-40600 Venipuncture Draw Fee 12:15:57 CDT CPT-060 Medical Surveillance Exam 21:31:43 CDT 2011 CPT-06428 Venipuncture Draw Fee 08:32:05 BARREL CHARRER CPT-OV Office Visit 18:19:06 CDT
--- OUTSIDE RECORDS SUMMARY | 2020-01-18 12:47 | XMS REPORT | Clinical Summary ---
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 3 Active Mitch Arnol Carlitos DO Osteoarthrosis, unsp ecified whether generalized or localized, involving lower leg DIZZINESS 780.4 Resolved Mitch Arnol Carlitos DO Dizziness and giddiness CAROTID BRUIT, LEFT 785.9 Active Mitch W Calritos DO Other symptoms involving cardiovascular system GOUT, [...] by mouth twice a day 2017 FAMOTIDINE 87431425899 No Longer Active Mitch Urbina DO Active COLCRYS 0.6 MG ORAL TABLET 1 tab qid prn gout C OLCHICINE 02095251297 No Longer Active Mitch Urbina DO Active GLIMEPIRIDE 2 MG ORAL TABLET 1 po BID GLIMEPIRID E 80072551836 Active Renee Oconnor LPN Active KEFLEX 500 MG ORAL CAPSULE 1 po qid CEPHALEXI N 90093224165 No Longer Active Mitch Urbina DO Active LOSARTAN POTASSIUM 100 MG ORAL TABLET 1 pill by mouth daily, for blood pressure LOSARTAN POTASSIUM 95497718173 Active Mitch Urbina DO Active AMLODIPINE BESYLATE 5 MG ORAL TABLET 1 tablet by mouth daily 201 01/20/04 AMLODIPINE BESYLATE 39843916301 No Longer Active Joe fulton APRN Active MITIGARE 0.6 MG ORAL CAPSULE 2 capsules at onset of go ut pain, then take one capsule at 1 hour if symptoms persist. COLCHICINE 59 682983215 Active Mitch Urbina DO Active COUMADIN 1 MG ORAL TABLET 2 tabs orally daily with the 5mg tab to equal 7mg daily WARFARIN SODIUM 34418827131 Active Ana Ocampo Active INVOKANA 100 MG ORAL TABLET 1 tablet orally daily CANAGLIFLOZIN 10839123593 Active Mitch Urbina DO Active MINOXIDIL 2.5 MG ORAL TABLET 1 tablet daily for high blood press ure MINOXIDIL 71512265062 Active Renee Oconnor LPN Active MECLIZINE HCL 25 MG ORAL TABLET 1 po tid 3 days, then 1/2 ta b tid 3 days MECLIZINE HCL 36033256391 No Longer Active Corey SEGURA Active ALLOPURINOL 300 MG ORAL TABLET Take 1 tablet by mouth daily 2012 ALLOPURINOL 62130198746 No Longer Active Corey SEGURA Active CLONIDINE HCL 0.1 MG ORAL TABLET 1 po bid 7 days, then 1/2 t ab po bid 7 days CLONIDINE HCL 41514539522 No Longer Active Corey SEGURA Active COUMADIN 5 MG ORAL TABLET 1 tab PO daily WARFAR IN SODIUM 76156293887 Active Mitch Urbina DO Active COUMADIN 4 MG ORAL TABLET 1 tablet daily WARFAR IN SODIUM 71272230817 No Longer Active Corey SEGURA Active POLYTRIM 77658-8.1 UNIT/ML-% OPHTHALMIC SOLUTION 1 rui p in affected eye every 3 hours while awake x 7 days POLYMYXIN B-TRIMETHOP RIM 35809016750 No Longer Active Corey SEGURA Active LOSARTAN POTASSIUM-HCTZ 100-12.5 MG ORAL TABLET 1 by m outh daily for high blood pressure LOSARTAN POTASSIUM-HCTZ 09773600343 No Longer A ctive Mitch Urbina DO Active LISINOPRIL-HYDROCHLOROTHIAZIDE 20-12.5 MG ORAL TABLET 1 tab by m outh daily LISINOPRIL-HYDROCHLOROTHIAZIDE 39643370305 No Longer Active Mitch Urbina DO Active LISINOPRIL 20 MG ORAL TABLET 1 tab po at HS LIS INOPRIL 54504454852 No Longer Active Mitch Urbina DO Active COUMADIN 5 MG ORAL TABLET 1 by mouth every other day 2 WARFARIN SODIUM 31031117062 No Longer Active Mitch Urbina DO Active COUMADIN 6 MG ORAL TABLET 1 by mouth every other day 2 WARFARIN SODIUM 40119047430 No Longer Active Mitch Urbina DO Active SIMVASTATIN 40 MG ORAL TABLET 1 tab daily at bedtime SIMVASTATIN 10390209632 Active Renee Oconnor LPN Active SIMVASTATIN 20 MG ORAL TABLET 1 tab daily at bedtime 2 SIMVASTATIN 05142552736 No Longer Active Mitch Urbina DO Active LOVENOX 100 MG/ML SUBCUTANEOUS SOLUTION One injection twice a da y ENOXAPARIN SODIUM 73097158702 No Longer Active Carmine Yusuf MD Active JANUVIA 50 MG ORAL TABLET Take one by mouth daily SITAGLIPTIN PHOSPHATE 39268600075 Active Mitch Urbina DO Active JANUVIA 100 MG ORAL TABLET 1/2 by mouth every day 2011 SITAGLIPTIN PHOSPHATE 01022868159 No Longer Active Bijal Segal RN Acti ve METFORMIN HCL 500 MG ORAL TABLET 2 by mouth twice daily METFORMIN HCL 01345969511 Active Mitch Urbina DO Active COLCRYS 0.6 MG ORAL TABLET 1 po q 6 hours prn gout pain COLCHICINE 09235575271 No Longer Active Camila Reese Active LISINOPRIL 5 MG ORAL TABLET 1 by mouth every day 11/17 LISINOPRIL 40424879750 No Longer Active Nguyen Perez Active KLOR-CON 20 MEQ ORAL PACKET Take one by mouth daily 09/10/08 POTASSIUM CHLORIDE 15542284470 No Longer Active Nguyen Perez Active FUROSEMIDE 40 MG ORAL TABLET 1 by mouth daily F UROSEMIDE 14040781442 No Longer Active Nguyen Perez Active PROVIGIL 200 MG ORAL TABLET 1/2 tab po q day MODA FINIL 52153915326 Active Renee Oconnor LPN Active PROVIGIL 100 MG ORAL TABLET Take one by mouth daily 08/20/04 MODAFINIL 22307382644 No Longer Active Mitch Urbina DO Active BACTRIM DS 800-160 MG ORAL TABLET 1 tab by mouth twice daily 201 10/19/09 TRIMETHOPRIM-SULFAMETHOXAZOLE 14512214824 No Longer Active Elian Hays MD Active ADULT ASPIRIN LOW STRENGTH 81 MG ORAL TABLET DISINTEGR ATING 1 by mouth every daily ASPIRIN 49163776273 Active Mitch Urbina DO Ac tive METOPROLOL TARTRATE 50 MG ORAL TABLET 1 by mouth twice daily METOPROLOL TARTRATE 98272955229 Active Mitch Urbina DO Active BACTRIM DS 800-160 MG ORAL TABLET 1 tab by mouth twice daily 201 10/19/09 BACTRIM DS 800-160 MG ORAL TABLET 956759 TRIMETHOPRIM-SULFAMETHOXAZOLE Inactive PROVIGIL 100 MG ORAL TABLET Take one by mouth daily 08/20/04 PROVIGIL 100 MG ORAL TABLET 163882 MODAFINIL Inactive FUROSEMIDE 40 MG ORAL TABLET 1 by mouth daily FUROSEMIDE 40 MG ORAL TABLET 408790 FUROSEMIDE Inactive KLOR-CON 20 MEQ ORAL PACKET Take one by mouth daily 09/10/08 KLOR- CON 20 MEQ ORAL PACKET 6063229 POTASSIUM CHLORIDE Inactive LISINOPRIL 5 MG ORAL TABLET 1 by mouth every day 11/17 LISINOPRIL 5 MG ORAL TABLET 026627 LISINOPRIL Inactive COLCRYS 0.6 MG ORAL TABLET 1 po q 6 hours prn gout pain COLCRYS 0.6 MG ORAL TABLET 818683 COLCHICINE Inactive JANUVIA 100 MG ORAL TABLET 1/2 by mouth every day 2011 JANUVIA 100 MG ORAL TABLET SITAGLIPTIN PHOSPHATE Inactive SIMVASTATIN 20 MG ORAL TABLET 1 tab daily at bedtime 2 SIMVASTATIN 20 MG ORAL TABLET 979218 SIMVASTATIN Inactive COUMADIN 6 MG ORAL TABLET 1 by mouth every other day COUMADIN 6 MG ORAL TABLET 012976 WARFARIN SODIUM Inactive COUMADIN 5 MG ORAL TABLET 1 by mouth every other day COUMADIN 5 MG ORAL TABLET 479055 WARFARIN SODIUM Inactive LISINOPRIL 20 MG ORAL TABLET 1 tab po at HS LISINOPRIL 20 MG ORAL TABLET 618145 LISINOPRIL Inactive LISINOPRIL-HYDROCHLOROTHIAZIDE 20-12.5 MG ORAL TABLET 1 tab by m outh daily LISINOPRIL-HYDROCHLOROTHIAZIDE 20-12.5 MG ORAL TABLET 079190 LISINOPRIL-HYDROCHLOROTHIAZIDE Inactive POLYTRIM 96875-6.1 UNIT/ML-% OPHTHALMIC SOLUTION 1 rui p in affected eye every 3 hours while awake x 7 days POLYTRIM 1000 0-0.1 UNIT/ML-% OPHTHALMIC SOLUTION 559807 POLYMYXIN B-TRIMETHOPRIM Inactive COUMADIN 4 MG ORAL TABLET 1 tablet daily COUMADIN 4 MG ORAL TABLET 846937 WARFARIN SODIUM Inactive CLONIDINE HCL 0.1 MG ORAL TABLET 1 po bid 7 days, then 1/2 t ab po bid 7 days CLONIDINE HCL 0.1 MG ORAL TABLET 944039 CLONIDIN E HCL Inactive ALLOPURINOL 300 MG ORAL TABLET Take 1 tablet by mouth daily 2012 ALLOPURINOL 300 MG ORAL TABLET 099890 ALLOPURINOL I nactive MECLIZINE HCL 25 MG ORAL TABLET 1 po tid 3 days, then 1/2 ta b tid 3 days MECLIZINE HCL 25 MG ORAL TABLET 711685 MECLIZINE HCL Inactive AMLODIPINE BESYLATE 5 MG ORAL TABLET 1 tablet by mouth daily 201 01/20/04 AMLODIPINE BESYLATE 5 MG ORAL TABLET 137015 AMLODIPINE BESYLATE Inactive KEFLEX 500 MG ORAL CAPSULE 1 po qid K EFLEX 500 MG ORAL CAPSULE 653936 CEPHALEXIN Inactive COLCRYS 0.6 MG ORAL TABLET 1 tab qid prn gout COLCRYS 0.6 MG ORAL TABLET 577983 COLCHICINE Inactive FAMOTIDINE 20 MG ORAL TABLET by mouth twice a day 2017 FAMOTIDINE 20 MG ORAL TABLET 165584 FAMOTIDINE Inactive LOVENOX 100 MG/ML SUBCUTANEOUS SOLUTION One injection twice a da y LOVENOX 100 MG/ML SUBCUTANEOUS SOLUTION 313521 ENOXAPAR IN SODIUM Inactive Vital Signs Date [...] - Chem istry sodium, serum 139 mmol/L 113-320 6344/07/17 potassium, serum 4.2 mmol/L 3.5-5.2 chloride, serum 102 mmol/L 98-107 carbon dioxide, venous blood 28.9 mmol/L 21.0-32 .0 blood glucose 211 mg/dL 65-110 calcium, serum 10.6 mg/dL 8.5-10.1 urea nitrogen, blood 29 mg/dL 7-18 creatinine, serum 1.24 mg/dL 0.60-1.30 sodium, serum 141 mmol/L 083-635 8806/08/07 potassium, serum 4.5 mmol/L 3.5-5.2 chloride, serum 102 mmol/L 98-107 carbon dioxide, venous blood 31.7 mmol/L 21.0-32 .0 blood glucose 117 mg/dL 65-110 calcium, serum 10.5 mg/dL 8.5-10.1 urea nitrogen, blood 26 mg/dL 7-18 creatinine, serum 1.15 mg/dL 0.60-1.30 Lab Report: Lipid Panel, HEPATIC PANEL, HGBA1C - Chemistry cholesterol, serum 136 mg/dL 227-532 1847/12/06 triglyceride, serum, fasting 247 mg/dL 30-200 HDL cholesterol, serum 41 mg/dL 32-60 LDL cholesterol, serum 46 mg/dL 0-130 aspartate aminotransferase (SGOT), serum 22 U/L 15-37 alanine aminotransferase (SGPT), serum 30 U/L 12-78 bilirubin, serum, total 0.80 mg/dL 0.00-1.00 hemoglobin A1C, blood, as % of total hemoglobin 6.4 % 4.3-6.0 Encounters Code Encounter Date Provider Facility CPT-53455 Level 3 Est. Patient 18:25:53 CDT Mitch luis [facility] CPT-34575 Level 3 Est. Patient 19:43:34 CDT Mitch luis [facility] CPT-89741 Level 4 Est. Patient 09:30:18 CDT Mitch luis [facility] CPT-87632 Level 3 Est. Patient 15:10:14 CDT Joe kamara [facility] CPT-54601 Level 3 Est. Patient 15:03:46 CDT Joe kamara [facility] CPT-97851 Level 3 Est. Patient 14:21:06 CDT Mitch luis [facility] CPT-63917 Level 3 Est. Patient 14:52:06 CDT Joe kamara [facility] CPT-64919 Level 3 Est. Patient 09:34:30 [employer]HOU[employer] Mitch luis [facility] CPT-51849 Level 3 Est. Patient 09:37:15 CDT Mitch luis [facility] CPT-95613 Level 3 Est. Patient 17:01:00 [employer]HOU[employer]IC [employer] Mitch luis [facility] CPT-02010 Level 3 Est. Patient 13:53:19 [employer]HOU[employer]IC [employer] Mitch luis [facility] CPT-11757 Level 3 Est. Patient 19:19:37 [employer]HOU[employer]IC [employer]PER Mitch luis [facility] CPT-72263 Level 3 Est. Patient 13:25:53 [employer]HOU[employer]CH[employer]IC [employer]PER Tavo toure MD [facility] CPT-58624 Level 3 Est. Patient 18:17:28 CDT Mitch Arnol luis [facility] CPT-19233 Level 3 Est. Patient 15:22:57 CDT Mitch luis [facility] CPT-71122 Level 3 Est. Patient 18:21:50 CDT Mitch luis [facility] CPT-21554 Level 3 Est. Patient 18:20:38 CDT Mitch Arnol luis [facility] CPT-07871 Level 3 Est. Patient 15:37:55 CDT Mitch luis [facility] CPT-99371 Level 2 Est. Patient 15:54:44 CDT Carmine benton MD [facility] CPT-84820 Level 3 Est. Patient 21:46:01 [employer]HOU[employer]IC [employer] Mitch luis [facility] CPT-11740 Level 3 Est. Patient 22:15:50 CDT Mitch luis [facility] CPT-48589 Level 3 Est. Patient 10:48:15 CDT Mitch luis [facility] CPT-22546 Level 3 Est. Patient 23:20:57 CDT Tavo toure MD [facility] CPT-21961 Level 3 Est. Patient 16:26:13 CDT Mitch luis [facility] Procedures Code Procedure Name Date Entry Date Standard Desc ription CPT-JTINJ Asp/Joint Injection 18:47:02 CDT CPT-50071 Venipuncture Draw Fee 09:26:17 CDT CPT-18192 PT/INR - LAB USE ONLY 13:32:49 [employer]HOU[employer] CPT-93371 Venipuncture Draw Fee 13:32:49 [employer]HOU[employer] CPT-45830 PT/INR - LAB USE ONLY 10:34:49 [employer] CPT-36984 Venipuncture Draw Fee 10:34:48 [employer]HOU[employer] CPT-93075 PT/INR - LAB USE ONLY 09:22:03 [employer]HOU[employer] CPT-91152 Venipuncture Draw Fee 09:22:02 [employer]HOU[employer] CPT-58170 Hemoccult IFOBT - LAB USE ONLY 10:27:22 CDT CPT-94975 Venipuncture Draw Fee 08:27:08 CDT CPT-77770 Liver Profile - LAB USE ONLY 08:27:07 CDT 2 CPT-63950 Microalbumin - LAB USE ONLY 08:27:07 CDT 20 25/05/09 CPT-37372 PT/INR - LAB USE ONLY 08:27:07 CDT CPT-07397 HGBA1C - LAB USE ONLY 08:27:07 CDT CPT-60793 CBC - LAB USE ONLY 08:27:07 CDT CPT-27276 Venipuncture Draw Fee 11:09:14 CDT CPT-08584 Venipuncture Draw Fee 08:32:21 [employer]HOU[employer] CPT-94672 Venipuncture Draw Fee 09:38:56 [employer] CPT-31203 No Charge Offi Visit 21:36:07 CDT 1 CPT-86133 Venipuncture Draw Fee 10:13:28 [employer]HOU[employer] CPT-79521 Venipuncture Draw Fee 08:31:11 CDT CPT-07508 Aspir/Inject Med Joint 18:17:28 CDT CPT-29018 Venipuncture Draw Fee 10:13:30 CDT CPT-64967 Venipuncture Draw Fee 08:31:43 [employer]HOU[employer] CPT-JTINJ Joint Injection 18:34:50 CDT CPT-94096 Knee 3V 12:25:09 CDT CPT-28520 Venipuncture Draw Fee 12:15:57 CDT CPT-060 Medical Surveillance Exam 21:31:43 CDT 2011 CPT-44821 Venipuncture Draw Fee 08:32:05 [employer]HOU[employer] CPT-OV Office Visit 18:19:06 CDT
--- OUTSIDE RECORDS SUMMARY | 2020-01-18 12:47 | XMS REPORT | Clinical Summary ---
[...] system GOUT, RIGHT WRIST 274.9 Resolved Mitch Arnlo Carlitos DO Gout, unspecified BRUISE 924.9 Resolved [...] 1 tablet by mouth daily AMLODIPINE BESYLATE 52995251939 No Longer Active Joe Williamson APRN Active MITIGARE 0.6 MG ORAL CAPS 2 capsules at onset of gout pain, then take one capsule at 1 hour if symptoms persist. COLCHICINE 59 735489252 Active Mitch Urbina DO Active COUMADIN 1 MG TAB 2 tabs orally daily with the 5mg tab to equal 7mg daily WARFARIN SODIUM 79722501614 Active Brenda Shen Active COLCRYS 0.6 MG TABS 1 tab qid prn gout COLCHICINE 86269023894 Active Norma Cazares Active INVOKANA 100 MG ORAL TABS 1 tablet orally daily CANAGLIFLOZIN 34541515407 Active Brenda Shen Active MINOXIDIL 2.5 MG TABS 1 tablet daily for high blood pressure 10/23 MINOXIDIL 92786810863 Active Ana Wallace Active MECLIZINE HCL 25 MG TAB 1 po tid 3 days, then 1/2 tab tid 3 days MECLIZINE HCL 50928865613 No Longer Active Corey SEGURA Active ALLOPURINOL 300 MG TABS Take 1 tablet by mouth daily 2 ALLOPURINOL 59888794258 No Longer Active Corey SEGURA Activ e CLONIDINE HCL 0.1 MG TABS 1 po bid 7 days, then 1/2 tab po b id 7 days CLONIDINE HCL 91152645958 No Longer Active Corey SEGURA Active COUMADIN 5 MG TABS 1 tab PO daily WARFARIN SODIUM 79679940097 Active Mitch Urbina DO Active COUMADIN 4 MG TABS 1 tablet daily WARFARIN SODI UM 77100980954 No Longer Active Corey SEGURA Active POLYTRIM 81981-4.1 UNIT/ML-% SOLN 1 drop in affected e ye every 3 hours while awake x 7 days POLYMYXIN B-TRIMETHOPRIM 28182724216 N o Longer Active Corey SEGUAR Active LOSARTAN POTASSIUM-HCTZ 100-12.5 MG TABS 1 by mouth da rcoky for high blood pressure LOSARTAN POTASSIUM-HCTZ 04600681921 Active Stephy Urbina DO Active LISINOPRIL-HYDROCHLOROTHIAZIDE 20-12.5 MG TABS 1 tab by mouth da rocky LISINOPRIL-HYDROCHLOROTHIAZIDE 54096860746 No Longer Active Mitch luis DO Active LISINOPRIL 20 MG TABS 1 tab po at HS LISINOPRIL 13393395339 No Longer Active Mitch Urbina DO Active COUMADIN 5 MG TABS 1 by mouth every other day WARFARIN SODIUM 20622653929 No Longer Active Mitch Urbina DO Active COUMADIN 6 MG TABS 1 by mouth every other day WARFARIN SODIUM 44777828073 No Longer Active Mitch Urbina DO Active SIMVASTATIN 40 MG TABS 1 tab daily at bedtime S IMVASTATIN 38324645124 Active Mitch Urbina DO Active SIMVASTATIN 20 MG TABS 1 tab daily at bedtime S IMVASTATIN 08949776153 No Longer Active Mitch Urbina DO Active LOVENOX 100 MG/ML SC SOLN One injection twice a day 09/15/15 ENOXAPARIN SODIUM 20735229384 No Longer Active Carmine Navarrete ctive JANUVIA 50 MG TABS Take one by mouth daily DIEGO GLIPTIN PHOSPHATE 34006595599 Active Mitch Urbina DO Active JANUVIA 100 MG TABS 1/2 by mouth every day DIEGO GLIPTIN PHOSPHATE 22734133545 No Longer Active Bijal Segal RN Active METFORMIN HCL 500 MG TABS 2 by mouth twice daily METFORMIN HCL 76327632088 Active Mitch Urbina DO Active GLIMEPIRIDE 4 MG TABS 1 tab po bid GLIMEPIRIDE 233130 51593 Active Mitch Urbina DO Active COLCRYS 0.6 MG TABS 1 po q 6 hours prn gout pain 03/02 COLCHICINE 87219599750 No Longer Active Camila Reese Active LISINOPRIL 5 MG TABS 1 by mouth every day LISIN OPRIL 56287267246 No Longer Active Nguyen Perez Active KLOR-CON 20 MEQ PACK Take one by mouth daily 8 POTASSIUM CHLORIDE 29263565093 No Longer Active Nguyen Perez Active FUROSEMIDE 40 MG TABS 1 by mouth daily FUROSEMI DE 32608520528 No Longer Active Nguyen Perez Active PROVIGIL 200 MG TABS 1/2 tab po q day MODAFINIL 86130 015058 Active Brenda Shen Active PROVIGIL 100 MG TABS Take one by mouth daily MO DAFINIL 69014825738 No Longer Active Mitch Urbina DO Active BACTRIM DS 800-160 MG TAB 1 tab by mouth twice daily 2 TRIMETHOPRIM-SULFAMETHOXAZOLE 67565534248 No Longer Active Renan Hays MD Active FAMOTIDINE 20 MG TABS by mouth twice a day FAMOTI DINE 88084753328 Active Mitch Urbina DO Active ADULT ASPIRIN LOW STRENGTH 81 MG TBDP 1 by mouth every daily ASPIRIN 62823693704 Active Mitch Urbina DO Active METOPROLOL TARTRATE 50 MG TABS 1 by mouth twice daily METOPROLOL TARTRATE 80600460076 Active Mitch Urbina DO Active BACTRIM DS 800-160 MG TAB 1 tab by mouth twice daily 2 BACTRIM DS 800-160 MG TAB 607044 TRIMETHOPRIM-SULFAMETHOXAZOLE Inac tive PROVIGIL 100 MG TABS Take one by mouth daily 4 PROVIGIL 100 MG TABS 512816 MODAFINIL Inactive FUROSEMIDE 40 MG TABS 1 by mouth daily FU ROSEMIDE 40 MG TABS 294104 FUROSEMIDE Inactive KLOR-CON 20 MEQ PACK Take one by mouth daily 8 KLOR-CON 20 MEQ PACK 4863349 POTASSIUM CHLORIDE Inactive LISINOPRIL 5 MG TABS 1 by mouth every day LISINOPRIL 5 MG TABS 782878 LISINOPRIL Inactive COLCRYS 0.6 MG TABS 1 po q 6 hours prn gout pain 03/02 COLCRYS 0.6 MG TABS 302945 COLCHICINE Inactive JANUVIA 100 MG TABS 1/2 by mouth every day JANUVI A 100 MG TABS SITAGLIPTIN PHOSPHATE Inactive SIMVASTATIN 20 MG TABS 1 tab daily at bedtime SIMVASTATIN 20 MG TABS 308568 SIMVASTATIN Inactive COUMADIN 6 MG TABS 1 by mouth every other day COUMADIN 6 MG TABS 270351 WARFARIN SODIUM Inactive COUMADIN 5 MG TABS 1 by mouth every other day COUMADIN 5 MG TABS 406984 WARFARIN SODIUM Inactive LISINOPRIL 20 MG TABS 1 tab po at HS KOKI NOPRIL 20 MG TABS 056113 LISINOPRIL Inactive LISINOPRIL-HYDROCHLOROTHIAZIDE 20-12.5 MG TABS 1 tab by mouth da rocky LISINOPRIL-HYDROCHLOROTHIAZIDE 20-12.5 MG TABS 848693 LISINOPRIL-HYDROCHLOROTHIAZIDE Inactive POLYTRIM 94272-8.1 UNIT/ML-% SOLN 1 drop in affected e ye every 3 hours while awake x 7 days POLYTRIM 89379-4.1 UNIT/ML-% SOLN 09747 7 POLYMYXIN B-TRIMETHOPRIM Inactive COUMADIN 4 MG TABS 1 tablet daily COUMADIN 4 MG TABS 412640 WARFARIN SODIUM Inactive CLONIDINE HCL 0.1 MG TABS 1 po bid 7 days, then 1/2 tab po b id 7 days CLONIDINE HCL 0.1 MG TABS 202442 CLONIDINE HCL I nactive ALLOPURINOL 300 MG TABS Take 1 tablet by mouth daily 2 ALLOPURINOL 300 MG TABS 856212 ALLOPURINOL Inactive MECLIZINE HCL 25 MG TAB 1 po tid 3 days, then 1/2 tab tid 3 days MECLIZINE HCL 25 MG TAB 394073 MECLIZINE HCL Inactive AMLODIPINE BESYLATE 5 MG TABS 1 tablet by mouth daily AMLODIPINE BESYLATE 5 MG TABS 745382 AMLODIPINE BESYLATE Inactive LOVENOX 100 MG/ML SC SOLN One injection twice a day 09/15/15 LOVENOX 100 MG/ML SC SOLN 546237 ENOXAPARIN SODIUM Inactive Vital Signs Date Name [...] Range Description Chart Maintenance: hemoccult added to [facility] - Chemistry occult blood, stool (E&M) Positive Lab Report: Lipid Panel, HEPATIC PANEL, MICROALB/CREAT W/RATIO, HGBA1C, CBC - Chemistry cholesterol, serum 136 mg/dL 861-950 6362/08/09 triglyceride, serum, fasting 187 mg/dL 30-200 HDL [...] 1.0-3.5 Encounters Code Encounter Date Provider Facility CPT-61255 Level 3 Est. Patient 15:10:14 CDT Joe kamara [facility]-73565 Level 3 Est. Patient 15:03:46 CDT Joe kamara [facility] CPT-90303 Level 3 Est. Patient 14:21:06 CDT Mitch luis [facility] CPT-56735 Level 3 Est. Patient 14:52:06 CDT Joe kamara [facility] CPT-14521 Level 3 Est. Patient 09:34:30 CERT PHARMACY TECH Mitch luis [facility] CPT-16341 Level 3 Est. Patient 09:37:15 CDT Mitch luis [facility] CPT-21080 Level 3 Est. Patient 17:01:00 CERT PHARMACY TECH Mitch luis [facility] CPT-91461 Level 3 Est. Patient 13:53:19 CERT PHARMACY TECH Mitch luis [facility] CPT-60285 Level 3 Est. Patient 19:19:37 CERT PHARMACY TECH Mitch luis [facility] CPT-11988 Level 3 Est. Patient 13:25:53 CERT PHARMACY TECH Tavo toure MD [facility] CPT-63056 Level 3 Est. Patient 18:17:28 CDT Mitch luis [facility] CPT-58888 Level 3 Est. Patient 15:22:57 CDT Mitch luis [facility] CPT-58157 Level 3 Est. Patient 18:21:50 CDT Mitch luis [facility] CPT-03114 Level 3 Est. Patient 18:20:38 CDT Mitch luis [facility] CPT-88591 Level 3 Est. Patient 15:37:55 CDT Mitch luis [facility] CPT-20322 Level 2 Est. Patient 15:54:44 CDT Carmine benton MD [facility] CPT-25661 Level 3 Est. Patient 21:46:01 CERT PHARMACY TECH Mitch luis [facility] CPT-81523 Level 3 Est. Patient 22:15:50 CDT Mitch luis [facility] CPT-61650 Level 3 Est. Patient 10:48:15 CDT Mitch luis [facility] CPT-61489 Level 3 Est. Patient 23:20:57 CDT Tavo toure MD [facility] CPT-36809 Level 3 Est. Patient 16:26:13 CDT Mitch luis [facility] Procedures Code Procedure Name Date Entry Date Standard Desc ription CPT-34423 PT/INR - LAB USE ONLY 13:32:49 CERT PHARMACY TECH CPT-92649 Venipuncture Draw Fee 13:32:49 CERT PHARMACY TECH CPT-25818 PT/INR - LAB USE ONLY 10:34:49 CERT PHARMACY TECH CPT-09906 Venipuncture Draw Fee 10:34:48 CERT PHARMACY TECH CPT-14871 PT/INR - LAB USE ONLY 09:22:03 CERT PHARMACY TECH CPT-30350 Venipuncture Draw Fee 09:22:02 CERT PHARMACY TECH CPT-76132 Hemoccult IFOBT - LAB USE ONLY 10:27:22 CDT CPT-92765 Venipuncture Draw Fee 08:27:08 CDT CPT-96040 Liver Profile - LAB USE ONLY 08:27:07 CDT 2 CPT-84185 Microalbumin - LAB USE ONLY 08:27:07 CDT 20 25/05/09 CPT-00807 PT/INR - LAB USE ONLY 08:27:07 CDT CPT-83933 HGBA1C - LAB USE ONLY 08:27:07 CDT CPT-56073 CBC - LAB USE ONLY 08:27:07 CDT CPT-19484 Venipuncture Draw Fee 11:09:14 CDT CPT-04752 Venipuncture Draw Fee 08:32:21 CERT PHARMACY TECH CPT-92307 Venipuncture Draw Fee 09:38:56 CERT PHARMACY TECH CPT-06245 No Charge Offi Visit 21:36:07 CDT 1 CPT-19419 Venipuncture Draw Fee 10:13:28 CERT PHARMACY TECH CPT-53067 Venipuncture Draw Fee 08:31:11 CDT CPT-18115 Aspir/Inject Med Joint 18:17:28 CDT CPT-71434 Venipuncture Draw Fee 10:13:30 CDT CPT-98750 Venipuncture Draw Fee 08:31:43 CERT PHARMACY TECH CPT-JTINJ Joint Injection 18:34:50 CDT CPT-20449 Knee 3V 12:25:09 CDT CPT-40341 Venipuncture Draw Fee 12:15:57 CDT CPT-060 Medical Surveillance Exam 21:31:43 CDT 2011 CPT-79699 Venipuncture Draw Fee 08:32:05 CERT PHARMACY TECH CPT-OV Office Visit 18:19:06 CDT
--- OUTSIDE RECORDS SUMMARY | 2020-01-18 12:48 | XMS REPORT | Clinical Summary ---
Author Author Admin, Mitch Leon Organization [facility] [employer] Address Unknown Phone Unavailable Allergies, Adverse Reactions, [...] Coronary atherosclerosis of unspecified type of vessel, [place] or graft EDEMA 782.3 Resolved Mitch Urbina DO Ed antonia DEGENERATIVE JOINT DISEASE, KNEES, 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 3 Active Mitch Urbina DO Osteoarthrosis, unsp ecified whether generalized or localized, involving lower leg DIZZINESS 780.4 Resolved Mitch Arnol Urbian DO Dizziness and giddiness CAROTID BRUIT, LEFT [...] tab to equal 7mg daily WARFARIN SODIUM 13664552794 Active Mitch Arnol Urbina DO Active COLCRYS 0.6 MG TABS 1 tab qid prn gout COLCHICINE 62128811602 Active Kathie Juan RPT,RMA Active INVOKANA 100 MG ORAL TABS 1 tablet orally daily CANAGLIFLOZIN 43745295686 Active Mitch Arnol Carlitos Active MINOXIDIL 2.5 MG TABS 1 tablet daily for high blood pressure 10/23 MINOXIDIL 21742360805 Active Mitch Urbina DO Active AMLODIPINE BESYLATE 5 MG TABS 1 tablet by mouth daily AMLODIPINE BESYLATE 36315777388 Active Mitch Urbina DO Active MECLIZINE HCL 25 MG TAB 1 po tid 3 days, then 1/2 tab tid 3 days MECLIZINE HCL 07248073700 No Longer Active Corey SEGURA Active ALLOPURINOL 300 MG TABS Take 1 tablet by mouth daily 2 ALLOPURINOL 08723827567 No Longer Active Corey SEGURA Activ e CLONIDINE HCL 0.1 MG TABS 1 po bid 7 days, then 1/2 tab po b id 7 days CLONIDINE HCL 80905048606 No Longer Active Corey SEGURA Active COUMADIN 5 MG TABS 1 tab PO daily WARFARIN SODIUM 34369755592 Active Mitch Urbina DO Active COUMADIN 4 MG TABS 1 tablet daily WARFARIN SODI UM 89540407272 No Longer Active Corey SEGURA Active POLYTRIM 15508-1.1 UNIT/ML-% SOLN 1 drop in affected e ye every 3 hours while awake x 7 days POLYMYXIN B-TRIMETHOPRIM 22332917824 N o Longer Active Corey SEGURA Active LOSARTAN POTASSIUM-HCTZ 100-12.5 MG TABS 1 by mouth da rocky for high blood pressure LOSARTAN POTASSIUM-HCTZ 37404982482 Active Stephy Uribna DO Active LISINOPRIL-HYDROCHLOROTHIAZIDE 20-12.5 MG TABS 1 tab by mouth da rocky LISINOPRIL-HYDROCHLOROTHIAZIDE 25348027411 No Longer Active Mitch luis DO Active LISINOPRIL 20 MG TABS 1 tab po at HS LISINOPRIL 49784182900 No Longer Active Mitch Urbina DO Active COUMADIN 5 MG TABS 1 by mouth every other day WARFARIN SODIUM 63822240279 No Longer Active Mitch Urbina DO Active COUMADIN 6 MG TABS 1 by mouth every other day WARFARIN SODIUM 23871844467 No Longer Active Mitch W Carlitos DO Active SIMVASTATIN 40 MG TABS 1 tab daily at bedtime S IMVASTATIN 09005383915 Active Mitch Urbina DO Active SIMVASTATIN 20 MG TABS 1 tab daily at bedtime S IMVASTATIN 47291876576 No Longer Active Mitch Urbina DO Active LOVENOX 100 MG/ML SC SOLN One injection twice a day 09/15/15 ENOXAPARIN SODIUM 51966331029 No Longer Active Carmine Navarrete ctive JANUVIA 50 MG TABS Take one by mouth daily DIEGO GLIPTIN PHOSPHATE 44107890398 Active Mitch Urbina DO Active JANUVIA 100 MG TABS 1/2 by mouth every day DIEGO GLIPTIN PHOSPHATE 47447028470 No Longer Active Bijal Segal RN Active METFORMIN HCL 500 MG TABS 2 by mouth twice daily METFORMIN HCL 94778039645 Active Mitch Urbina DO Active GLIMEPIRIDE 4 MG TABS 1 tab po bid GLIMEPIRIDE 615150 84705 Active Mitch Urbina DO Active COLCRYS 0.6 MG TABS 1 po q 6 hours prn gout pain 03/02 COLCHICINE 03769010285 No Longer Active Camila Reese Active LISINOPRIL 5 MG TABS 1 by mouth every day LISIN OPRIL 01422516664 No Longer Active Nguyenmolly Perez Active KLOR-CON 20 MEQ PACK Take one by mouth daily 8 POTASSIUM CHLORIDE 51393068400 No Longer Active Nguyen Ana Active FUROSEMIDE 40 MG TABS 1 by mouth daily FUROSEMI DE 72887877572 No Longer Active Nguyen Ana Active PROVIGIL 200 MG TABS 1/2 tab po q day MODAFINIL 10690 504606 Active Mitch Urbina DO Active PROVIGIL 100 MG TABS Take one by mouth daily MO DAFINIL 76644530614 No Longer Active Mitch Urbina DO Active BACTRIM DS 800-160 MG TAB 1 tab by mouth twice daily 2 TRIMETHOPRIM-SULFAMETHOXAZOLE 52222144572 No Longer Active Renan Hays MD Active FAMOTIDINE 20 MG TABS by mouth twice a day FAMOTI ZULEIKA 04714603723 Active Mitch Urbina DO Active ADULT ASPIRIN LOW STRENGTH 81 MG TBDP 1 by mouth every daily ASPIRIN 89989652180 Active Mitch Urbina DO Active METOPROLOL TARTRATE 50 MG TABS 1 by mouth twice daily METOPROLOL TARTRATE 25730417273 Active Mitch Urbina DO Active BACTRIM DS 800-160 MG TAB 1 tab by mouth twice daily 2 BACTRIM DS 800-160 MG TAB 801955 TRIMETHOPRIM-SULFAMETHOXAZOLE Inac tive PROVIGIL 100 MG TABS Take one by mouth daily 4 PROVIGIL 100 MG TABS 176227 MODAFINIL Inactive FUROSEMIDE 40 MG TABS 1 by mouth daily FU ROSEMIDE 40 MG TABS 942011 FUROSEMIDE Inactive KLOR-CON 20 MEQ PACK Take one by mouth daily 8 KLOR-CON 20 MEQ PACK 205877 POTASSIUM CHLORIDE Inactive LISINOPRIL 5 MG TABS 1 by mouth every day LISINOPRIL 5 MG TABS 275812 LISINOPRIL Inactive COLCRYS 0.6 MG TABS 1 po q 6 hours prn gout pain 03/02 COLCRYS 0.6 MG TABS 865694 COLCHICINE Inactive JANUVIA 100 MG TABS 1/2 by mouth every day JANUVI A 100 MG TABS SITAGLIPTIN PHOSPHATE Inactive SIMVASTATIN 20 MG TABS 1 tab daily at bedtime SIMVASTATIN 20 MG TABS 991694 SIMVASTATIN Inactive COUMADIN 6 MG TABS 1 by mouth every other day COUMADIN 6 MG TABS 974884 WARFARIN SODIUM Inactive COUMADIN 5 MG TABS 1 by mouth every other day COUMADIN 5 MG TABS 107912 WARFARIN SODIUM Inactive LISINOPRIL 20 MG TABS 1 tab po at HS KOKI NOPRIL 20 MG TABS 454148 LISINOPRIL Inactive LISINOPRIL-HYDROCHLOROTHIAZIDE 20-12.5 MG TABS 1 tab by mouth da rocky LISINOPRIL-HYDROCHLOROTHIAZIDE 20-12.5 MG TABS 807053 LISINOPRIL-HYDROCHLOROTHIAZIDE Inactive POLYTRIM 28861-7.1 UNIT/ML-% SOLN 1 drop in affected e ye every 3 hours while awake x 7 days POLYTRIM 71041-7.1 UNIT/ML-% SOLN 06745 7 POLYMYXIN B-TRIMETHOPRIM Inactive COUMADIN 4 MG TABS 1 tablet daily COUMADIN 4 MG TABS 961103 WARFARIN SODIUM Inactive CLONIDINE HCL 0.1 MG TABS 1 po bid 7 days, then 1/2 tab po b id 7 days CLONIDINE HCL 0.1 MG TABS 139147 CLONIDINE HCL I nactive ALLOPURINOL 300 MG TABS Take 1 tablet by mouth daily 2 ALLOPURINOL 300 MG TABS 160248 ALLOPURINOL Inactive MECLIZINE HCL 25 MG TAB 1 po tid 3 days, then 1/2 tab tid 3 days MECLIZINE HCL 25 MG TAB 372186 MECLIZINE HCL Inactive LOVENOX 100 MG/ML SC SOLN One injection twice a day 20 09/15/15 LOVENOX 100 MG/ML SC SOLN 262497 ENOXAPARIN SODIUM Inactive Vital Signs Date Name [...] Range Description Chart Maintenance: [facility] - Chemistry occult blood, stool (E&M) Positive [...] - Chem istry sodium, serum 136 mmol/L 342-186 1960/01/14 carbon dioxide, venous blood 25.4 mmol/L 21.0-32 [...] CBC - Chemistry cholesterol, serum 136 mg/dL 645-448 4931/08/09 triglyceride, serum, fasting 187 mg/dL 30-200 HDL [...] 1.0-3.5 Encounters Code Encounter Date Provider Facility CPT-66419 Level 3 Est. Patient 14:21:06 CDT Mitch W L janelle [facility] CPT-65790 Level 3 Est. Patient 14:52:06 CDT Joe kamara APRN [facility]-63804 Level 3 Est. Patient 09:34:30 WHEEL ALIGNMENT MECHANIC Mitch W L janelle [facility]-31764 Level 3 Est. Patient 09:37:15 CDT Mitch W L ee [facility]-61240 Level 3 Est. Patient 17:01:00 WHEEL ALIGNMENT MECHANIC Mitch W L janelle [facility] CPT-53394 Level 3 Est. Patient 13:53:19 WHEEL ALIGNMENT MECHANIC Mitch W L janelle [facility] CPT-19306 Level 3 Est. Patient 19:19:37 WHEEL ALIGNMENT MECHANIC Mitch W L ee [facility] CPT-86299 Level 3 Est. Patient 13:25:53 WHEEL ALIGNMENT MECHANIC Tavo toure MD [facility] CPT-10814 Level 3 Est. Patient 18:17:28 CDT Mitch W L ee [facility] CPT-77769 Level 3 Est. Patient 15:22:57 CDT Mitch W L ee [facility] CPT-43031 Level 3 Est. Patient 18:21:50 CDT Mitch W L ee [facility] CPT-38774 Level 3 Est. Patient 18:20:38 CDT Mitch W L ee [facility] CPT-20703 Level 3 Est. Patient 15:37:55 CDT Mitch W L ee [facility] CPT-24705 Level 2 Est. Patient 15:54:44 CDT Carmine benton MD [facility] CPT-24056 Level 3 Est. Patient 21:46:01 WHEEL ALIGNMENT MECHANIC Mitch luis [facility] CPT-34385 Level 3 Est. Patient 22:15:50 CDT Mitch Arnol luis [facility] CPT-31302 Level 3 Est. Patient 10:48:15 CDT Mitch luis [facility] CPT-92285 Level 3 Est. Patient 23:20:57 CDT Tavo toure MD [facility] CPT-56120 Level 3 Est. Patient 16:26:13 CDT Mitch Castellano janelle [facility] Procedures Code Procedure Name Date Entry Date Standard Desc ription CPT-94839 Hemoccult IFOBT - LAB USE ONLY 10:27:22 CDT CPT-19859 Venipuncture Draw Fee 08:27:08 CDT CPT-53821 Liver Profile - LAB USE ONLY 08:27:07 CDT 2 CPT-29782 Microalbumin - LAB USE ONLY 08:27:07 CDT 20 25/05/09 CPT-24829 PT/INR - LAB USE ONLY 08:27:07 CDT CPT-93630 HGBA1C - LAB USE ONLY 08:27:07 CDT CPT-21088 CBC - LAB USE ONLY 08:27:07 CDT CPT-00499 Venipuncture Draw Fee 11:09:14 CDT CPT-56410 Venipuncture Draw Fee 08:32:21 WHEEL ALIGNMENT MECHANIC CPT-03918 Venipuncture Draw Fee 09:38:56 WHEEL ALIGNMENT MECHANIC CPT-06830 No Charge Offi Visit 21:36:07 CDT 1 CPT-84677 Venipuncture Draw Fee 10:13:28 WHEEL ALIGNMENT MECHANIC CPT-90367 Venipuncture Draw Fee 08:31:11 CDT CPT-36833 Aspir/Inject Med Joint 18:17:28 CDT CPT-88073 Venipuncture Draw Fee 10:13:30 CDT CPT-29057 Venipuncture Draw Fee 08:31:43 WHEEL ALIGNMENT MECHANIC CPT-JTINJ Joint Injection 18:34:50 CDT CPT-67784 Knee 3V 12:25:09 CDT CPT-37444 Venipuncture Draw Fee 12:15:57 CDT CPT-060 Medical Surveillance Exam 21:31:43 CDT 2011 CPT-03490 Venipuncture Draw Fee 08:32:05 WHEEL ALIGNMENT MECHANIC CPT-OV Office Visit 18:19:06 CDT
--- OUTSIDE RECORDS SUMMARY | 2020-01-18 12:48 | XMS REPORT | Clinical Summary ---
Author Author Admin, Mitch Leon Organization [facility] Address Unknown Phone Unavailable Allergies, Adverse Reactions, [...] ( 6mg total ) 2015 WARFARIN SODIUM 15605462746 Active Domi Rivera MA Acti ve INVOKANA 100 MG ORAL TABS 1 tablet orally daily CANAGLIFLOZIN 55768122217 Active Kathie Juan RPT,RMA Active MINOXIDIL 2.5 MG TABS 1 tablet daily for high blood pressure 10/23 MINOXIDIL 13073265430 Active Mitch Urbina DO Active AMLODIPINE BESYLATE 5 MG TABS 1 tablet by mouth daily AMLODIPINE BESYLATE 37758682332 Active Domi Rivera MA Active MECLIZINE HCL 25 MG TAB 1 po tid 3 days, then 1/2 tab tid 3 days MECLIZINE HCL 78709698943 No Longer Active Corey SEGURA Active ALLOPURINOL 300 MG TABS Take 1 tablet by mouth daily 2 ALLOPURINOL 77867424132 No Longer Active Corey SEGURA Activ e CLONIDINE HCL 0.1 MG TABS 1 po bid 7 days, then 1/2 tab po b id 7 days CLONIDINE HCL 29760255164 No Longer Active Corey SEGURA Active COUMADIN 5 MG TABS 1 tab PO daily WARFARIN SODIUM 19541649946 Active Domi Rivera MA Active COUMADIN 4 MG TABS 1 tablet daily WARFARIN SODI UM 75499058602 No Longer Active Corey SEGURA Active POLYTRIM 81313-5.1 UNIT/ML-% SOLN 1 drop in affected e ye every 3 hours while awake x 7 days POLYMYXIN B-TRIMETHOPRIM 88690418879 N o Longer Active Corey SEGURA Active LOSARTAN POTASSIUM-HCTZ 100-12.5 MG TABS 1 by mouth da rocky for high blood pressure LOSARTAN POTASSIUM-HCTZ 59784963524 Active Domi Rivera MA Active LISINOPRIL-HYDROCHLOROTHIAZIDE 20-12.5 MG TABS 1 tab by mouth da rocky LISINOPRIL-HYDROCHLOROTHIAZIDE 77199640259 No Longer Active Mitch luis DO Active LISINOPRIL 20 MG TABS 1 tab po at HS LISINOPRIL 49732232268 No Longer Active Mitch Urbina DO Active COUMADIN 5 MG TABS 1 by mouth every other day WARFARIN SODIUM 90300012625 No Longer Active Mitch Urbina DO Active COUMADIN 6 MG TABS 1 by mouth every other day WARFARIN SODIUM 58612403567 No Longer Active Mitch Urbina DO Active COLCRYS 0.6 MG TABS 1 tab qid prn gout COLCHICINE 18661172297 Active Corey SEGURA Active SIMVASTATIN 40 MG TABS 1 tab daily at bedtime S IMVASTATIN 77549052595 Active Domi Rivera MA Active SIMVASTATIN 20 MG TABS 1 tab daily at bedtime S IMVASTATIN 59234930902 No Longer Active Mitch Urbina DO Active LOVENOX 100 MG/ML SC SOLN One injection twice a day 09/15/15 ENOXAPARIN SODIUM 20393042200 No Longer Active Carmine Navarrete ctive JANUVIA 50 MG TABS Take one by mouth daily DIEGO GLIPTIN PHOSPHATE 70832881596 Active Domi Rivera MA Active JANUVIA 100 MG TABS 1/2 by mouth every day DIEGO GLIPTIN PHOSPHATE 62605938859 No Longer Active Bijal Segal RN Active METFORMIN HCL 500 MG TABS 2 by mouth twice daily METFORMIN HCL 01278347601 Active Kathie Juan RPT,RMA Active GLIMEPIRIDE 4 MG TABS 1 tab po bid GLIMEPIRIDE 417570 92684 Active Kathie Juan RPT,RMA Active COLCRYS 0.6 MG TABS 1 po q 6 hours prn gout pain 03/02 COLCHICINE 80655614537 No Longer Active Camila Reese Active LISINOPRIL 5 MG TABS 1 by mouth every day LISIN OPRIL 36371639538 No Longer Active Nguyen Perez Active KLOR-CON 20 MEQ PACK Take one by mouth daily 8 POTASSIUM CHLORIDE 89496212398 No Longer Active Nguyen Perez Active FUROSEMIDE 40 MG TABS 1 by mouth daily FUROSEMI DE 07644832414 No Longer Active Nguyenmolly Perez Active PROVIGIL 200 MG TABS 1/2 tab po q day MODAFINIL 63115 296311 Active Domi Rivera MA Active PROVIGIL 100 MG TABS Take one by mouth daily MO DAFINIL 24026962170 No Longer Active Mitch Urbina DO Active BACTRIM DS 800-160 MG TAB 1 tab by mouth twice daily 2 TRIMETHOPRIM-SULFAMETHOXAZOLE 55222178785 No Longer Active Renan Hays MD Active FAMOTIDINE 20 MG TABS by mouth twice a day FAMOTI DINE 79939081920 Active Mitch Urbina DO Active ADULT ASPIRIN LOW STRENGTH 81 MG TBDP 1 by mouth every daily ASPIRIN 18912404007 Active Mitch Urbina DO Active METOPROLOL TARTRATE 50 MG TABS 1 by mouth twice daily METOPROLOL TARTRATE 83542963424 Active Domi Rivera MA Active BACTRIM DS 800-160 MG TAB 1 tab by mouth twice daily 2 BACTRIM DS 800-160 MG TAB 374629 TRIMETHOPRIM-SULFAMETHOXAZOLE Inac tive PROVIGIL 100 MG TABS Take one by mouth daily 4 PROVIGIL 100 MG TABS 217303 MODAFINIL Inactive FUROSEMIDE 40 MG TABS 1 by mouth daily FU ROSEMIDE 40 MG TABS 116684 FUROSEMIDE Inactive KLOR-CON 20 MEQ PACK Take one by mouth daily 8 KLOR-CON 20 MEQ PACK 887809 POTASSIUM CHLORIDE Inactive LISINOPRIL 5 MG TABS 1 by mouth every day LISINOPRIL 5 MG TABS 397596 LISINOPRIL Inactive COLCRYS 0.6 MG TABS 1 po q 6 hours prn gout pain 03/02 COLCRYS 0.6 MG TABS 867050 COLCHICINE Inactive JANUVIA 100 MG TABS 1/2 by mouth every day JANUVI A 100 MG TABS SITAGLIPTIN PHOSPHATE Inactive SIMVASTATIN 20 MG TABS 1 tab daily at bedtime SIMVASTATIN 20 MG TABS 020601 SIMVASTATIN Inactive COUMADIN 6 MG TABS 1 by mouth every other day COUMADIN 6 MG TABS 699392 WARFARIN SODIUM Inactive COUMADIN 5 MG TABS 1 by mouth every other day COUMADIN 5 MG TABS 168722 WARFARIN SODIUM Inactive LISINOPRIL 20 MG TABS 1 tab po at HS KOKI NOPRIL 20 MG TABS 248271 LISINOPRIL Inactive LISINOPRIL-HYDROCHLOROTHIAZIDE 20-12.5 MG TABS 1 tab by mouth da rocky LISINOPRIL-HYDROCHLOROTHIAZIDE 20-12.5 MG TABS 852596 LISINOPRIL-HYDROCHLOROTHIAZIDE Inactive POLYTRIM 74406-9.1 UNIT/ML-% SOLN 1 drop in affected e ye every 3 hours while awake x 7 days POLYTRIM 54816-8.1 UNIT/ML-% SOLN 33168 7 POLYMYXIN B-TRIMETHOPRIM Inactive COUMADIN 4 MG TABS 1 tablet daily COUMADIN 4 MG TABS 083383 WARFARIN SODIUM Inactive CLONIDINE HCL 0.1 MG TABS 1 po bid 7 days, then 1/2 tab po b id 7 days CLONIDINE HCL 0.1 MG TABS 890700 CLONIDINE HCL I nactive ALLOPURINOL 300 MG TABS Take 1 tablet by mouth daily 2 ALLOPURINOL 300 MG TABS 643466 ALLOPURINOL Inactive MECLIZINE HCL 25 MG TAB 1 po tid 3 days, then 1/2 tab tid 3 days MECLIZINE HCL 25 MG TAB 708882 MECLIZINE HCL Inactive LOVENOX 100 MG/ML SC SOLN One injection twice a day 09/15/15 LOVENOX 100 MG/ML SC SOLN 554318 ENOXAPARIN SODIUM Inactive Vital Signs Date Name [...] Range Description Chart Maintenance: [facility]cult [facility] - Chemistry occult blood, [...] Ag - Chemistry sodium, serum 141 mmol/L 394-818 5541/07/06 potassium, serum 4.4 mmol/L 3.5-5.2 chloride, serum [...] - Chem istry sodium, serum 136 mmol/L 922-088 4213/01/14 carbon dioxide, venous blood 25.4 mmol/L 21.0-32 [...] 7.0 % 4.3-6.0 cholesterol, serum 120 mg/dL 726-892 2028/07/06 triglyceride, serum, fasting 186 mg/dL 30-200 HDL [...] 1.0-3.5 Encounters Code Encounter Date Provider Facility CPT-01163 Level 3 Est. 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 CPT-60326 Level 3 Est. Patient 09:37:[address] [facility] CPT-82521 Level 3 Est. Patient 17:01:00 AIRPLANE REFU[employer] Mitch luis [facility] CPT-56753 Level 3 Est. Patient 13:53:19 AIRPLANE REFUELER Mitch luis [facility] CPT-24494 Level 3 Est. Patient 19:19:37 AIRPLANE REFUEL[employer] Mitch luis [facility] CPT-77367 Level 3 Est. Patient 13:25:53 AIRPLANE REFU[employer]ER Tavo toure MD [facility] CPT-18215 Level 3 Est. Patient 18:17:28 CDT Mitch luis [facility] CPT-97501 Level 3 Est. Patient 15:22:[address] [facility] CPT-25395 Level 3 Est. Patient 18:21:[address] [facility] CPT-42363 Level 3 Est. Patient 18:20:[address] [facility] CPT-21892 Level 3 Est. Patient 15:37:55 CDT Mitch luis [facility] CPT-29241 Level 2 Est. Patient 15:54:44 CDT Carmine benton MD [facility] CPT-45963 Level 3 Est. Patient 21:46:01 AIRPLANE REFU[employer] Mitch luis [facility] CPT-70402 Level 3 Est. Patient 22:15:50 CDT Mitch luis [facility] CPT-77779 Level 3 Est. Patient 10:48:15 CDT Mitch luis [facility] CPT-11380 Level 3 Est. Patient 23:20:57 CDT Tavo toure MD [facility] CPT-62770 Level 3 Est. Patient 16:26:13 CDT Mitch luis [facility] Procedures Code Procedure Name Date Entry Date Standard Desc ription CPT-97774 Venipuncture Draw Fee 08:32:21 [employer]PLANE RE[employer] CPT-84287 Venipuncture Draw Fee 09:38:56 AIRPLANE RE[employer] CPT-56083 No Charge Offi Visit 21:36:07 CDT 1 CPT-47271 Venipuncture Draw Fee 10:13:28 [employer]PLANE RE[employer] CPT-06842 Venipuncture Draw Fee 08:31:11 CDT CPT-01340 Aspir/Inject Med Joint 18:17:28 CDT CPT-07651 Venipuncture Draw Fee 10:13:30 CDT CPT-67939 Venipuncture Draw Fee 08:31:43 AIRPLANE RE[employer] CPT-JTINJ Joint Injection 18:34:50 CDT CPT-75866 Knee 3V 12:25:09 CDT CPT-87155 Venipuncture Draw Fee 12:15:57 CDT CPT-060 Medical Surveillance Exam 21:31:43 CDT 2011 CPT-07427 Venipuncture Draw Fee 08:32:05 AIRPLANE RE[employer] CPT-OV Office Visit 18:19:06 CDT
--- OUTSIDE RECORDS SUMMARY | 2020-01-18 12:48 | XMS REPORT | Clinical Summary ---
Author Author Admin, Mitch Leon Organization [facility] Address Unknown Phone Unavailable Allergies, Adverse [...] Coronary atherosclerosis of unspecified type of vessel, [place] or graft EDEMA 782.3 Resolved Mitch Urbina [...] ( 6mg total ) 2015 WARFARIN SODIUM 72025634834 Active Domi Rivera MA Acti ve INVOKANA 100 MG ORAL TABS 1 tablet orally daily CANAGLIFLOZIN 32261754323 Active Kathie Juan RPT,RMA Active MINOXIDIL 2.5 MG TABS 1 tablet daily for high blood pressure 10/23 MINOXIDIL 24572834313 Active Mitch Urbina DO Active AMLODIPINE BESYLATE 5 MG TABS 1 tablet by mouth daily AMLODIPINE BESYLATE 07690642623 Active Domi Rivera MA Active MECLIZINE HCL 25 MG TAB 1 po tid 3 days, then 1/2 tab tid 3 days MECLIZINE HCL 81999915110 No Longer Active Corey SEGURA Active ALLOPURINOL 300 MG TABS Take 1 tablet by mouth daily 2 ALLOPURINOL 34029968514 No Longer Active Corey SEGURA Activ e CLONIDINE HCL 0.1 MG TABS 1 po bid 7 days, then 1/2 tab po b id 7 days CLONIDINE HCL 63621225231 No Longer Active Corey SEGURA Active COUMADIN 5 MG TABS 1 tab PO daily WARFARIN SODIUM 62619199877 Active Mitch Urbina DO Active COUMADIN 4 MG TABS 1 tablet daily WARFARIN SODI UM 85294354123 No Longer Active Corey SEGURA Active POLYTRIM 17508-3.1 UNIT/ML-% SOLN 1 drop in affected e ye every 3 hours while awake x 7 days POLYMYXIN B-TRIMETHOPRIM 71887462983 N o Longer Active Corey SEGURA Active LOSARTAN POTASSIUM-HCTZ 100-12.5 MG TABS 1 by mouth da rocky for high blood pressure LOSARTAN POTASSIUM-HCTZ 56671801847 Active Domi Rivera MA Active LISINOPRIL-HYDROCHLOROTHIAZIDE 20-12.5 MG TABS 1 tab by mouth da rocky LISINOPRIL-HYDROCHLOROTHIAZIDE 45798486615 No Longer Active Mitch luis DO Active LISINOPRIL 20 MG TABS 1 tab po at HS LISINOPRIL 57125657494 No Longer Active Mitch Urbina DO Active COUMADIN 5 MG TABS 1 by mouth every other day WARFARIN SODIUM 34715701734 No Longer Active Mitch Urbina DO Active COUMADIN 6 MG TABS 1 by mouth every other day WARFARIN SODIUM 75440459470 No Longer Active Mitch Urbina DO Active COLCRYS 0.6 MG TABS 1 tab qid prn gout COLCHICINE 49997626575 Active Corey SEGURA Active SIMVASTATIN 40 MG TABS 1 tab daily at bedtime S IMVASTATIN 20109404625 Active Domi Rivera MA Active SIMVASTATIN 20 MG TABS 1 tab daily at bedtime S IMVASTATIN 92999473462 No Longer Active Mitch Urbina DO Active LOVENOX 100 MG/ML SC SOLN One injection twice a day 09/15/15 ENOXAPARIN SODIUM 48047007978 No Longer Active Carmine Navarrete ctive JANUVIA 50 MG TABS Take one by mouth daily DIEGO GLIPTIN PHOSPHATE 67085719740 Active Domi Rivera MA Active JANUVIA 100 MG TABS 1/2 by mouth every day DIEGO GLIPTIN PHOSPHATE 56889809490 No Longer Active Bijal Segal RN Active METFORMIN HCL 500 MG TABS 2 by mouth twice daily METFORMIN HCL 20422247904 Active Kathie Juan RPT,RMA Active GLIMEPIRIDE 4 MG TABS 1 tab po bid GLIMEPIRIDE 436173 96726 Active Kathie Juan RPT,RMA Active COLCRYS 0.6 MG TABS 1 po q 6 hours prn gout pain 03/02 COLCHICINE 88603314728 No Longer Active Camila Reese Active LISINOPRIL 5 MG TABS 1 by mouth every day LISIN OPRIL 82641123810 No Longer Active Nguyenmolly Perez Active KLOR-CON 20 MEQ PACK Take one by mouth daily 8 POTASSIUM CHLORIDE 74672443876 No Longer Active Nguyenmolly Perez Active FUROSEMIDE 40 MG TABS 1 by mouth daily FUROSEMI DE 59933017911 No Longer Active Nguyenmolly Perez Active PROVIGIL 200 MG TABS 1/2 tab po q day MODAFINIL 39435 404337 Active Domi Rivera MA Active PROVIGIL 100 MG TABS Take one by mouth daily MO DAFINIL 02451176806 No Longer Active Mitch Urbina DO Active BACTRIM DS 800-160 MG TAB 1 tab by mouth twice daily 2 TRIMETHOPRIM-SULFAMETHOXAZOLE 58829809224 No Longer Active Renan Hays MD Active FAMOTIDINE 20 MG TABS by mouth twice a day FAMOTI DINE 24934890024 Active Mitch Urbina DO Active ADULT ASPIRIN LOW STRENGTH 81 MG TBDP 1 by mouth every daily ASPIRIN 48971549700 Active Mitch Urbina DO Active METOPROLOL TARTRATE 50 MG TABS 1 by mouth twice daily METOPROLOL TARTRATE 34360018438 Active Domi Rivera MA Active BACTRIM DS 800-160 MG TAB 1 tab by mouth twice daily 2 BACTRIM DS 800-160 MG TAB 160197 TRIMETHOPRIM-SULFAMETHOXAZOLE Inac tive PROVIGIL 100 MG TABS Take one by mouth daily 4 PROVIGIL 100 MG TABS 523505 MODAFINIL Inactive FUROSEMIDE 40 MG TABS 1 by mouth daily FU ROSEMIDE 40 MG TABS 511115 FUROSEMIDE Inactive KLOR-CON 20 MEQ PACK Take one by mouth daily 8 KLOR-CON 20 MEQ PACK 365474 POTASSIUM CHLORIDE Inactive LISINOPRIL 5 MG TABS 1 by mouth every day LISINOPRIL 5 MG TABS 693488 LISINOPRIL Inactive COLCRYS 0.6 MG TABS 1 po q 6 hours prn gout pain 03/02 COLCRYS 0.6 MG TABS 173437 COLCHICINE Inactive JANUVIA 100 MG TABS 1/2 by mouth every day JANUVI A 100 MG TABS SITAGLIPTIN PHOSPHATE Inactive SIMVASTATIN 20 MG TABS 1 tab daily at bedtime SIMVASTATIN 20 MG TABS 631427 SIMVASTATIN Inactive COUMADIN 6 MG TABS 1 by mouth every other day COUMADIN 6 MG TABS 124330 WARFARIN SODIUM Inactive COUMADIN 5 MG TABS 1 by mouth every other day COUMADIN 5 MG TABS 691484 WARFARIN SODIUM Inactive LISINOPRIL 20 MG TABS 1 tab po at HS KOKI NOPRIL 20 MG TABS 612450 LISINOPRIL Inactive LISINOPRIL-HYDROCHLOROTHIAZIDE 20-12.5 MG TABS 1 tab by mouth da rocky LISINOPRIL-HYDROCHLOROTHIAZIDE 20-12.5 MG TABS 809423 LISINOPRIL-HYDROCHLOROTHIAZIDE Inactive POLYTRIM 75630-6.1 UNIT/ML-% SOLN 1 drop in affected e ye every 3 hours while awake x 7 days POLYTRIM 06197-5.1 UNIT/ML-% SOLN 27240 7 POLYMYXIN B-TRIMETHOPRIM Inactive COUMADIN 4 MG TABS 1 tablet daily COUMADIN 4 MG TABS 095980 WARFARIN SODIUM Inactive CLONIDINE HCL 0.1 MG TABS 1 po bid 7 days, then 1/2 tab po b id 7 days CLONIDINE HCL 0.1 MG TABS 598553 CLONIDINE HCL I nactive ALLOPURINOL 300 MG TABS Take 1 tablet by mouth daily 2 ALLOPURINOL 300 MG TABS 889928 ALLOPURINOL Inactive MECLIZINE HCL 25 MG TAB 1 po tid 3 days, then 1/2 tab tid 3 days MECLIZINE HCL 25 MG TAB 301745 MECLIZINE HCL Inactive LOVENOX 100 MG/ML SC SOLN One injection twice a day 09/15/15 LOVENOX 100 MG/ML SC SOLN 007161 ENOXAPARIN SODIUM Inactive Vital Signs Date Name [...] - Hematology hemoglobin, blood 12.2 g/dL 13.5-17.5 mean corpuscular volume, RBC 82 fL 80-97 mean corpuscular hemoglobin, RBC 26.6 pg 27. 0-31.2 mean corpuscular hemoglobin concentration, RBC 32.6 G/DL % 31.8-35.4 red blood cell distribution width 18.0 % 11 .6-14.8 platelet count 276 10^3/MM^3 10*3/mm3 103-376 1389/01/14 leukocyte count, blood 7.1 10^3/MM^3 10*3/mm3 4.6-10.2 erythrocyte (RBC) count 4.57 10^6/MM^3 10*6/mm3 4.69-6.1 3 hematocrit, blood 37.3 % 41.0-53.0 Lab Report: CBC, Comp. Metabolic Panel, Prostatic Specific Ag - Chemistry sodium, serum 141 mmol/L 496-309 4163/07/06 potassium, serum 4.4 mmol/L 3.5-5.2 chloride, serum [...] leukocyte count, blood 7.7 10^3/MM^3 10*3/mm3 4.6-10.2 hematocrit, blood 38.1 % 41.0-53.0 mean corpuscular volume, RBC 83 fL 80-97 mean corpuscular hemoglobin, RBC 27.0 pg 27. 0-31.2 mean corpuscular hemoglobin concentration, RBC 32.7 G/DL % 31.8-35.4 red blood cell distribution width 18.2 % 11 .6-14.8 platelet count 269 10^3/MM^3 10*3/mm3 142-424 Lab Report: Comp. Metabolic Panel - Chem istry carbon dioxide, venous blood 25.4 mmol/L 21.0-32 .0 blood glucose 241 mg/dL 65-110 urea nitrogen, blood 25 mg/dL 7-18 creatinine, serum 1.11 mg/dL 0.55-1.30 alanine aminotransferase (SGPT), serum 37 U/L 12-78 aspartate aminotransferase (SGOT), serum 26 U/L 15-37 calcium, serum 9.7 mg/dL 8.5-10.1 bilirubin, serum, total 0.70 mg/dL 0.00-1.00 potassium, serum 4.2 mmol/L 3.5-5.2 chloride, serum 100 mmol/L 98-107 sodium, serum 136 mmol/L 136-145 Lab Report: HGBA1C - Chemistry hemoglobin A1C, blood, as % of total hemoglobin 6.6 % 4.3-6.0 Lab Report: HGBA1C, Lipid Panel - Chemis try hemoglobin A1C, blood, as % of total hemoglobin 7.0 % 4.3-6.0 cholesterol, serum 120 mg/dL 668-930 1543/07/06 triglyceride, serum, fasting 186 mg/dL 30-200 HDL [...] ratio (INR) 2.2 1.0-3.5 prothrombin time (patient) 14.5 SECS s 11.1-13.4 international normalized ratio (INR) 1.5 1.0-3.5 prothrombin time (patient) 18.9 SECS s 11.1-13.4 international normalized ratio (INR) 2.4 1.0-3.5 prothrombin time (patient) 15.8 SECS s 11.1-13.4 international normalized ratio (INR) 1.8 1.0-3.5 prothrombin time (patient) 16.2 SECS s 11.1-13.4 international normalized ratio (INR) 1.8 1.0-3.5 international normalized ratio (INR) 2.0 1.0-3.5 prothrombin time (patient) 17.1 SECS s 11.1-13.4 international normalized ratio (INR) 2.3 1.0-3.5 prothrombin time (patient) 18.6 SECS s 11.1-13.4 Encounters Code Encounter Date Provider Facility CPT-18252 Level 3 Est. 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 Patient 09:37:15 CDT Mitch luis [facility] CPT-78488 Level 3 Est. Patient 17:01:00 SUPPLY CONTROLLER Mitch luis [facility] CPT-59732 Level 3 Est. Patient 13:53:19 SUPPLY CONTROLLER Mitch luis [facility] CPT-44210 Level 3 Est. Patient 19:19:37 SUPPLY CONTROLLER Mitch luis [facility] CPT-73008 Level 3 Est. Patient 13:25:53 SUPPLY CONTROLLER Tavo toure MD [facility] CPT-89988 Level 3 Est. Patient 18:17:28 CDT Mitch luis [facility] CPT-83308 Level 3 Est. Patient 15:22:57 CDT Mitch luis [facility] CPT-07457 Level 3 Est. Patient 18:21:50 CDT Mitch luis [facility] CPT-17087 Level 3 Est. Patient 18:20:38 CDT Mitch luis [facility] CPT-30137 Level 3 Est. Patient 15:37:55 CDT Mitch luis [facility] CPT-47663 Level 2 Est. Patient 15:54:44 CDT Carmine benton MD [facility] CPT-46973 Level 3 Est. Patient 21:46:01 SUPPLY CONTROLLER Mitch luis [facility] CPT-55147 Level 3 Est. Patient 22:15:50 CDT Mitch luis [facility] CPT-27362 Level 3 Est. Patient 10:48:15 CDT Mitch luis [facility] CPT-05708 Level 3 Est. Patient 23:20:57 CDT Tavo toure MD [facility] CPT-89389 Level 3 Est. Patient 16:26:13 CDT Mitch luis [facility] Procedures Code Procedure Name Date Entry Date Standard Desc ription CPT-29986 Venipuncture Draw Fee 08:32:21 SUPPLY CONTROLLER CPT-11014 Venipuncture Draw Fee 09:38:56 SUPPLY CONTROLLER CPT-29399 No Charge Offi Visit 21:36:07 CDT 1 CPT-05918 Venipuncture Draw Fee 10:13:28 SUPPLY CONTROLLER CPT-53011 Venipuncture Draw Fee 08:31:11 CDT CPT-82589 Aspir/Inject Med Joint 18:17:28 CDT CPT-01238 Venipuncture Draw Fee 10:13:30 CDT CPT-28616 Venipuncture Draw Fee 08:31:43 SUPPLY CONTROLLER CPT-JTINJ Joint Injection 18:34:50 CDT CPT-67788 Knee 3V 12:25:09 CDT CPT-16595 Venipuncture Draw Fee 12:15:57 CDT CPT-060 Medical Surveillance Exam 21:31:43 CDT 2011 CPT-21893 Venipuncture Draw Fee 08:32:05 SUPPLY CONTROLLER CPT-OV Office Visit 18:19:06 CDT
--- OUTSIDE RECORDS SUMMARY | 2020-01-18 12:48 | XMS REPORT | Clinical Summary ---
Author Author Admin, Mitch Leon Organization [facility] [employer] Address Unknown Phone Unavailable Allergies, Adverse [...] Coronary atherosclerosis of unspecified type of vessel, [place] or graft EDEMA 782.3 Resolved Mitch Urbina [...] by mouth twice a day 2017 FAMOTIDINE 81189494835 No Longer Active Mitch Urbina DO Active COLCRYS 0.6 MG ORAL TABLET 1 tab qid prn gout C OLCHICINE 51804292070 No Longer Active Mitch Urbina DO Active GLIMEPIRIDE 2 MG ORAL TABLET 1 po BID GLIMEPIRID E 85348590264 Active Renee Oconnor LPN Active KEFLEX 500 MG ORAL CAPSULE 1 po qid CEPHALEXI N 71578259685 No Longer Active Mitch Urbina DO Active LOSARTAN POTASSIUM 100 MG ORAL TABLET 1 pill by mouth daily, for blood pressure LOSARTAN POTASSIUM 12248561172 Active Mitch Urbina DO Active AMLODIPINE BESYLATE 5 MG ORAL TABLET 1 tablet by mouth daily 201 01/20/04 AMLODIPINE BESYLATE 61773109712 No Longer Active Joe fulton APRN Active MITIGARE 0.6 MG ORAL CAPSULE 2 capsules at onset of go ut pain, then take one capsule at 1 hour if symptoms persist. COLCHICINE 59 026447913 Active Mitch Urbina DO Active COUMADIN 1 MG ORAL TABLET 2 tabs orally daily with the 5mg tab to equal 7mg daily WARFARIN SODIUM 91477233159 Active Ana Ocampo Active INVOKANA 100 MG ORAL TABLET 1 tablet orally daily CANAGLIFLOZIN 20250679929 Active Mitch Urbina DO Active MINOXIDIL 2.5 MG ORAL TABLET 1 tablet daily for high blood press ure MINOXIDIL 60628950249 Active Renee Oconnor LPN Active MECLIZINE HCL 25 MG ORAL TABLET 1 po tid 3 days, then 1/2 ta b tid 3 days MECLIZINE HCL 50084768257 No Longer Active Corey SEGURA Active ALLOPURINOL 300 MG ORAL TABLET Take 1 tablet by mouth daily 2012 ALLOPURINOL 52257385592 No Longer Active Corey SEGURA Active CLONIDINE HCL 0.1 MG ORAL TABLET 1 po bid 7 days, then 1/2 t ab po bid 7 days CLONIDINE HCL 40768915129 No Longer Active Corey SEGURA Active COUMADIN 5 MG ORAL TABLET 1 tab PO daily WARFAR IN SODIUM 93814960281 Active Mitch Urbina DO Active COUMADIN 4 MG ORAL TABLET 1 tablet daily WARFAR IN SODIUM 52482235167 No Longer Active Corey SEGURA Active POLYTRIM 23676-0.1 UNIT/ML-% OPHTHALMIC SOLUTION 1 rui p in affected eye every 3 hours while awake x 7 days POLYMYXIN B-TRIMETHOP RIM 38606394066 No Longer Active Corey SEGURA Active LOSARTAN POTASSIUM-HCTZ 100-12.5 MG ORAL TABLET 1 by m outh daily for high blood pressure LOSARTAN POTASSIUM-HCTZ 63248383772 No Longer A ctive Mitch Urbina DO Active LISINOPRIL-HYDROCHLOROTHIAZIDE 20-12.5 MG ORAL TABLET 1 tab by m outh daily LISINOPRIL-HYDROCHLOROTHIAZIDE 73963510744 No Longer Active Mitch Urbina DO Active LISINOPRIL 20 MG ORAL TABLET 1 tab po at HS LIS INOPRIL 03188477199 No Longer Active Mitch Urbina DO Active COUMADIN 5 MG ORAL TABLET 1 by mouth every other day 2 WARFARIN SODIUM 85418079140 No Longer Active Mitch Urbina DO Active COUMADIN 6 MG ORAL TABLET 1 by mouth every other day 2 WARFARIN SODIUM 14013074176 No Longer Active Mitch Urbina DO Active SIMVASTATIN 40 MG ORAL TABLET 1 tab daily at bedtime SIMVASTATIN 46291585093 Active Renee Oconnor LPN Active SIMVASTATIN 20 MG ORAL TABLET 1 tab daily at bedtime 2 SIMVASTATIN 20689202678 No Longer Active Mitch Urbina DO Active LOVENOX 100 MG/ML SUBCUTANEOUS SOLUTION One injection twice a da y ENOXAPARIN SODIUM 94093736730 No Longer Active Carmine Yusuf MD Active JANUVIA 50 MG ORAL TABLET Take one by mouth daily SITAGLIPTIN PHOSPHATE 08642429606 Active Mitch Urbina DO Active JANUVIA 100 MG ORAL TABLET 1/2 by mouth every day 2011 SITAGLIPTIN PHOSPHATE 27703933123 No Longer Active Bijal Segal RN Acti ve METFORMIN HCL 500 MG ORAL TABLET 2 by mouth twice daily METFORMIN HCL 41873146803 Active Mitch Urbina DO Active COLCRYS 0.6 MG ORAL TABLET 1 po q 6 hours prn gout pain COLCHICINE 25038874489 No Longer Active Camila Reese Active LISINOPRIL 5 MG ORAL TABLET 1 by mouth every day 11/17 LISINOPRIL 73893930961 No Longer Active Nguyen Perez Active KLOR-CON 20 MEQ ORAL PACKET Take one by mouth daily 09/10/08 POTASSIUM CHLORIDE 24806671112 No Longer Active Nguyen Perez Active FUROSEMIDE 40 MG ORAL TABLET 1 by mouth daily F UROSEMIDE 54962561666 No Longer Active Nguyen Perez Active PROVIGIL 200 MG ORAL TABLET 1/2 tab po q day MODA FINIL 71444455741 Active Renee Oconnor LPN Active PROVIGIL 100 MG ORAL TABLET Take one by mouth daily 08/20/04 MODAFINIL 21027694831 No Longer Active Mitch Urbina DO Active BACTRIM DS 800-160 MG ORAL TABLET 1 tab by mouth twice daily 201 10/19/09 TRIMETHOPRIM-SULFAMETHOXAZOLE 38435513449 No Longer Active Elian Hays MD Active ADULT ASPIRIN LOW STRENGTH 81 MG ORAL TABLET DISINTEGR ATING 1 by mouth every daily ASPIRIN 38815533830 Active Mitch Urbina DO Ac tive METOPROLOL TARTRATE 50 MG ORAL TABLET 1 by mouth twice daily METOPROLOL TARTRATE 59218560364 Active Mitch Urbina DO Active BACTRIM DS 800-160 MG ORAL TABLET 1 tab by mouth twice daily 201 10/19/09 BACTRIM DS 800-160 MG ORAL TABLET 161487 TRIMETHOPRIM-SULFAMETHOXAZOLE Inactive PROVIGIL 100 MG ORAL TABLET Take one by mouth daily 08/20/04 PROVIGIL 100 MG ORAL TABLET 438612 MODAFINIL Inactive FUROSEMIDE 40 MG ORAL TABLET 1 by mouth daily FUROSEMIDE 40 MG ORAL TABLET 309065 FUROSEMIDE Inactive KLOR-CON 20 MEQ ORAL PACKET Take one by mouth daily 09/10/08 KLOR- CON 20 MEQ ORAL PACKET 4320326 POTASSIUM CHLORIDE Inactive LISINOPRIL 5 MG ORAL TABLET 1 by mouth every day 11/17 LISINOPRIL 5 MG ORAL TABLET 485716 LISINOPRIL Inactive COLCRYS 0.6 MG ORAL TABLET 1 po q 6 hours prn gout pain COLCRYS 0.6 MG ORAL TABLET 748829 COLCHICINE Inactive JANUVIA 100 MG ORAL TABLET 1/2 by mouth every day 2011 JANUVIA 100 MG ORAL TABLET SITAGLIPTIN PHOSPHATE Inactive SIMVASTATIN 20 MG ORAL TABLET 1 tab daily at bedtime 2 SIMVASTATIN 20 MG ORAL TABLET 884809 SIMVASTATIN Inactive COUMADIN 6 MG ORAL TABLET 1 by mouth every other day COUMADIN 6 MG ORAL TABLET 456476 WARFARIN SODIUM Inactive COUMADIN 5 MG ORAL TABLET 1 by mouth every other day COUMADIN 5 MG ORAL TABLET 628094 WARFARIN SODIUM Inactive LISINOPRIL 20 MG ORAL TABLET 1 tab po at HS LISINOPRIL 20 MG ORAL TABLET 540545 LISINOPRIL Inactive LISINOPRIL-HYDROCHLOROTHIAZIDE 20-12.5 MG ORAL TABLET 1 tab by m outh daily LISINOPRIL-HYDROCHLOROTHIAZIDE 20-12.5 MG ORAL TABLET 307916 LISINOPRIL-HYDROCHLOROTHIAZIDE Inactive POLYTRIM 22691-0.1 UNIT/ML-% OPHTHALMIC SOLUTION 1 rui p in affected eye every 3 hours while awake x 7 days POLYTRIM 1000 0-0.1 UNIT/ML-% OPHTHALMIC SOLUTION 414088 POLYMYXIN B-TRIMETHOPRIM Inactive COUMADIN 4 MG ORAL TABLET 1 tablet daily COUMADIN 4 MG ORAL TABLET 601198 WARFARIN SODIUM Inactive CLONIDINE HCL 0.1 MG ORAL TABLET 1 po bid 7 days, then 1/2 t ab po bid 7 days CLONIDINE HCL 0.1 MG ORAL TABLET 620669 CLONIDIN E HCL Inactive ALLOPURINOL 300 MG ORAL TABLET Take 1 tablet by mouth daily 2012 ALLOPURINOL 300 MG ORAL TABLET 953209 ALLOPURINOL I nactive MECLIZINE HCL 25 MG ORAL TABLET 1 po tid 3 days, then 1/2 ta b tid 3 days MECLIZINE HCL 25 MG ORAL TABLET 481468 MECLIZINE HCL Inactive AMLODIPINE BESYLATE 5 MG ORAL TABLET 1 tablet by mouth daily 201 01/20/04 AMLODIPINE BESYLATE 5 MG ORAL TABLET 320907 AMLODIPINE BESYLATE Inactive KEFLEX 500 MG ORAL CAPSULE 1 po qid K EFLEX 500 MG ORAL CAPSULE 807176 CEPHALEXIN Inactive COLCRYS 0.6 MG ORAL TABLET 1 tab qid prn gout COLCRYS 0.6 MG ORAL TABLET 325354 COLCHICINE Inactive FAMOTIDINE 20 MG ORAL TABLET by mouth twice a day 2017 FAMOTIDINE 20 MG ORAL TABLET 632718 FAMOTIDINE Inactive LOVENOX 100 MG/ML SUBCUTANEOUS SOLUTION One injection twice a da y LOVENOX 100 MG/ML SUBCUTANEOUS SOLUTION 442025 ENOXAPAR IN SODIUM Inactive Vital Signs Date [...] - Chem istry sodium, serum 139 mmol/L 293-997 8835/07/17 potassium, serum 4.2 mmol/L 3.5-5.2 chloride, serum 102 mmol/L 98-107 carbon dioxide, venous blood 28.9 mmol/L 21.0-32 .0 blood glucose 211 mg/dL 65-110 calcium, serum 10.6 mg/dL 8.5-10.1 urea nitrogen, blood 29 mg/dL 7-18 creatinine, serum 1.24 mg/dL 0.60-1.30 sodium, serum 141 mmol/L 053-869 7013/08/07 potassium, serum 4.5 mmol/L 3.5-5.2 chloride, serum 102 mmol/L 98-107 carbon dioxide, venous blood 31.7 mmol/L 21.0-32 .0 blood glucose 117 mg/dL 65-110 calcium, serum 10.5 mg/dL 8.5-10.1 urea nitrogen, blood 26 mg/dL 7-18 creatinine, serum 1.15 mg/dL 0.60-1.30 Lab Report: Lipid Panel, HEPATIC PANEL, HGBA1C - Chemistry cholesterol, serum 136 mg/dL 571-670 1636/12/06 triglyceride, serum, fasting 247 mg/dL 30-200 HDL cholesterol, serum 41 mg/dL 32-60 LDL cholesterol, serum 46 mg/dL 0-130 aspartate aminotransferase (SGOT), serum 22 U/L 15-37 alanine aminotransferase (SGPT), serum 30 U/L 12-78 bilirubin, serum, total 0.80 mg/dL 0.00-1.00 hemoglobin A1C, blood, as % of total hemoglobin 6.4 % 4.3-6.0 Encounters Code Encounter Date Provider Facility CPT-11945 Level 3 Est. Patient 18:25:53 CDT Mitch luis [facility] CPT-47152 Level 3 Est. Patient 19:43:34 CDT Mitch luis [facility] CPT-96714 Level 4 Est. Patient 09:30:18 CDT Mitch luis [facility] CPT-29803 Level 3 Est. Patient 15:10:14 CDT Joe kamara [facility] CPT-30938 Level 3 Est. Patient 15:03:46 CDT Joe kamara [facility] CPT-25002 Level 3 Est. Patient 14:21:06 CDT Mitch luis [facility] CPT-01928 Level 3 Est. Patient 14:52:06 CDT Joe kamara [facility] CPT-07089 Level 3 Est. Patient 09:34:30 SECRET SERVICE AGENT Mitch luis [facility] CPT-75467 Level 3 Est. Patient 09:37:15 CDT Mitch luis [facility] CPT-92718 Level 3 Est. Patient 17:01:00 SECRET SERVICE AGENT Mitch luis [facility] CPT-86414 Level 3 Est. Patient 13:53:19 SECRET SERVICE AGENT Mitch luis [facility] CPT-40695 Level 3 Est. Patient 19:19:37 SECRET SERVICE AGENT Mitch luis [facility] CPT-08974 Level 3 Est. Patient 13:25:53 SECRET SERVICE AGENT Tavo toure MD [facility] CPT-88910 Level 3 Est. Patient 18:17:28 CDT Mitch Arnol luis [facility] CPT-66937 Level 3 Est. Patient 15:22:57 CDT Mitch luis [facility] CPT-18408 Level 3 Est. Patient 18:21:50 CDT Mitch luis [facility] CPT-40159 Level 3 Est. Patient 18:20:38 CDT Mitch Arnol luis [facility] CPT-71323 Level 3 Est. Patient 15:37:[address] [facility] CPT-86801 Level 2 Est. Patient 15:54:44 CDT Carmine benton MD [facility] CPT-54552 Level 3 Est. Patient 21:46:01 SECRET SERVICE AGENT Mitch luis [facility] CPT-23057 Level 3 Est. Patient 22:15:[address] [facility] CPT-78459 Level 3 Est. Patient 10:48:[address] [facility] CPT-74026 Level 3 Est. Patient 23:20:57 CDT Tavo toure MD [facility] CPT-80251 Level 3 Est. Patient 16:26:[address] [facility] Procedures Code Procedure Name Date Entry Date Standard Desc ription CPT-JTINJ Asp/Joint Injection 18:47:02 CDT CPT-32224 Venipuncture Draw Fee 09:26:17 CDT CPT-12775 PT/INR - LAB USE ONLY 13:32:49 [employer]CRET SERVICE AGENT CPT-75293 Venipuncture Draw Fee 13:32:49 SECRET SERVICE AGENT CPT-43685 PT/INR - LAB USE ONLY 10:34:49 SECRET SERVICE AGENT CPT-06924 Venipuncture Draw Fee 10:34:48 SECRET SERVICE AGENT CPT-97464 PT/INR - LAB USE ONLY 09:22:03 SECRET SERVICE AGENT CPT-37135 Venipuncture Draw Fee 09:22:02 SECRET SERVICE AGENT CPT-72868 Hemoccult IFOBT - LAB USE ONLY 10:27:22 CDT CPT-96769 Venipuncture Draw Fee 08:27:08 CDT CPT-70215 Liver Profile - LAB USE ONLY 08:27:07 CDT 2 CPT-93935 Microalbumin - LAB USE ONLY 08:27:07 CDT 20 25/05/09 CPT-81203 PT/INR - LAB USE ONLY 08:27:07 CDT CPT-03224 HGBA1C - LAB USE ONLY 08:27:07 CDT CPT-19201 CBC - LAB USE ONLY 08:27:07 CDT CPT-58946 Venipuncture Draw Fee 11:09:14 CDT CPT-85669 Venipuncture Draw Fee 08:32:21 SECRET SERVICE AGENT CPT-01082 Venipuncture Draw Fee 09:38:56 SECRET SERVICE AGENT CPT-30358 No Charge Offi Visit 21:36:07 CDT 1 CPT-37601 Venipuncture Draw Fee 10:13:28 SECRET SERVICE AGENT CPT-42086 Venipuncture Draw Fee 08:31:11 CDT CPT-29547 Aspir/Inject Med Joint 18:17:28 CDT CPT-02072 Venipuncture Draw Fee 10:13:30 CDT CPT-28700 Venipuncture Draw Fee 08:31:43 SECRET SERVICE AGENT CPT-JTINJ Joint Injection 18:34:50 CDT CPT-93145 Knee 3V 12:25:09 CDT CPT-17755 Venipuncture Draw Fee 12:15:57 CDT CPT-060 Medical Surveillance Exam 21:31:43 CDT 2011 CPT-04646 Venipuncture Draw Fee 08:32:05 SECRET SERVICE AGENT CPT-OV Office Visit 18:19:06 CDT
--- OUTSIDE RECORDS SUMMARY | 2020-01-18 12:49 | XMS REPORT | Clinical Summary ---
Author Author Admin, Mitch Leon Organization [facility] Address Unknown Phone Unavailable [...] Coronary atherosclerosis of unspecified type of vessel, [place] or graft EDEMA 782.3 Active Mitch Urbina [...] 1 tablet by mouth daily AMLODIPINE BESYLATE 37376376669 Active Mitch Urbina DO Active MECLIZINE HCL 25 MG TAB 1 po tid 3 days, then 1/2 tab tid 3 days MECLIZINE HCL 71387735412 No Longer Active Corey SEGURA Active ALLOPURINOL 300 MG TABS Take 1 tablet by mouth daily 2 ALLOPURINOL 37055730142 No Longer Active Corey SEGURA Activ e CLONIDINE HCL 0.1 MG TABS 1 po bid 7 days, then 1/2 tab po b id 7 days CLONIDINE HCL 13674081992 No Longer Active Corey SEGURA Active COUMADIN 5 MG TABS 1 tab PO daily WARFARIN SODIUM 34532147994 Active Mitch Urbina DO Active COUMADIN 4 MG TABS 1 tablet daily WARFARIN SODI UM 57640721568 No Longer Active Corey SEGURA Active POLYTRIM 60513-5.1 UNIT/ML-% SOLN 1 drop in affected e ye every 3 hours while awake x 7 days POLYMYXIN B-TRIMETHOPRIM 00609331583 N o Longer Active Corey SEGURA Active LOSARTAN POTASSIUM-HCTZ 100-12.5 MG TABS 1 by mouth da rocky for high blood pressure LOSARTAN POTASSIUM-HCTZ 00899489306 Active Stephy Urbina DO Active LISINOPRIL-HYDROCHLOROTHIAZIDE 20-12.5 MG TABS 1 tab by mouth da rocky LISINOPRIL-HYDROCHLOROTHIAZIDE 05561453078 No Longer Active Mitch luis DO Active LISINOPRIL 20 MG TABS 1 tab po at HS LISINOPRIL 93206384491 No Longer Active Mitch Urbina DO Active COUMADIN 5 MG TABS 1 by mouth every other day WARFARIN SODIUM 89192090400 No Longer Active Mitch Urbina DO Active COUMADIN 6 MG TABS 1 by mouth every other day WARFARIN SODIUM 79063253105 No Longer Active Mitch Urbina DO Active COLCRYS 0.6 MG TABS 1 tab qid prn gout COLCHICINE 85132319250 Active Corey SEGURA Active SIMVASTATIN 40 MG TABS 1 tab daily at bedtime S IMVASTATIN 98265343500 Active Mitch Urbina DO Active SIMVASTATIN 20 MG TABS 1 tab daily at bedtime S IMVASTATIN 25502903404 No Longer Active Mitch Urbina DO Active LOVENOX 100 MG/ML SC SOLN One injection twice a day 09/15/15 ENOXAPARIN SODIUM 54711548446 No Longer Active Carmine Yusuf MD A ctive JANUVIA 50 MG TABS Take one by mouth daily DIEGO GLIPTIN PHOSPHATE 62495483940 Active Domi Rivera MA Active JANUVIA 100 MG TABS 1/2 by mouth every day DIEGO GLIPTIN PHOSPHATE 28512994201 No Longer Active Bijal Segal RN Active METFORMIN HCL 500 MG TABS 2 by mouth twice daily METFORMIN HCL 69423803468 Active Mitch Urbina DO Active GLIMEPIRIDE 4 MG TABS 1 tab po bid GLIMEPIRIDE 526298 47513 Active Mitch Urbina DO Active COLCRYS 0.6 MG TABS 1 po q 6 hours prn gout pain 03/02 COLCHICINE 46043763176 No Longer Active Camila Reese Active LISINOPRIL 5 MG TABS 1 by mouth every day LISIN OPRIL 64567989235 No Longer Active Nguyenmolly Perez Active KLOR-CON 20 MEQ PACK Take one by mouth daily 8 POTASSIUM CHLORIDE 32726468517 No Longer Active Nguyenmolly Perez Active FUROSEMIDE 40 MG TABS 1 by mouth daily FUROSEMI DE 46278799600 No Longer Active Nguyenmolly Perez Active PROVIGIL 200 MG TABS 1/2 tab po q day MODAFINIL 11066 647268 Active Mitch Urbina DO Active PROVIGIL 100 MG TABS Take one by mouth daily MO DAFINIL 79943786451 No Longer Active Mitch Urbina DO Active BACTRIM DS 800-160 MG TAB 1 tab by mouth twice daily 2 TRIMETHOPRIM-SULFAMETHOXAZOLE 98967871005 No Longer Active Renan Hays MD Active FAMOTIDINE 20 MG TABS by mouth twice a day FAMOTI DINE 32866148208 Active Mitch Urbina DO Active ADULT ASPIRIN LOW STRENGTH 81 MG TBDP 1 by mouth every daily ASPIRIN 78408897014 Active Mitch W [place] DO Active METOPROLOL TARTRATE 50 MG TABS 1 by mouth twice daily METOPROLOL TARTRATE 64537984188 Active Curly Coker MD Active BACTRIM DS 800-160 MG TAB 1 tab by mouth twice daily 2 BACTRIM DS 800-160 MG TAB TRIMETHOPRIM-SULFAMETHOXAZOLE Inac tive PROVIGIL 100 MG TABS Take one by mouth daily 4 PROVIGIL 100 MG TABS 151179 MODAFINIL Inactive FUROSEMIDE 40 MG TABS 1 by mouth daily FU ROSEMIDE 40 MG TABS 494366 FUROSEMIDE Inactive KLOR-CON 20 MEQ PACK Take one by mouth daily 8 KLOR-CON 20 MEQ PACK 841525 POTASSIUM CHLORIDE Inactive LISINOPRIL 5 MG TABS 1 by mouth every day LISINOPRIL 5 MG TABS 141569 LISINOPRIL Inactive COLCRYS 0.6 MG TABS 1 po q 6 hours prn gout pain 03/02 COLCRYS 0.6 MG TABS 619167 COLCHICINE Inactive JANUVIA 100 MG TABS 1/2 by mouth every day JANUVI A 100 MG TABS SITAGLIPTIN PHOSPHATE Inactive SIMVASTATIN 20 MG TABS 1 tab daily at bedtime SIMVASTATIN 20 MG TABS 577186 SIMVASTATIN Inactive COUMADIN 6 MG TABS 1 by mouth every other day COUMADIN 6 MG TABS 750831 WARFARIN SODIUM Inactive COUMADIN 5 MG TABS 1 by mouth every other day COUMADIN 5 MG TABS 190662 WARFARIN SODIUM Inactive LISINOPRIL 20 MG TABS 1 tab po at HS KOKI NOPRIL 20 MG TABS 113525 LISINOPRIL Inactive LISINOPRIL-HYDROCHLOROTHIAZIDE 20-12.5 MG TABS 1 tab by mouth da rocky LISINOPRIL-HYDROCHLOROTHIAZIDE 20-12.5 MG TABS 343558 LISINOPRIL-HYDROCHLOROTHIAZIDE Inactive POLYTRIM 85823-1.1 UNIT/ML-% SOLN 1 drop in affected e ye every 3 hours while awake x 7 days POLYTRIM 00721-0.1 UNIT/ML-% SOLN 42992 7 POLYMYXIN B-TRIMETHOPRIM Inactive COUMADIN 4 MG TABS 1 tablet daily COUMADIN 4 MG TABS 907537 WARFARIN SODIUM Inactive CLONIDINE HCL 0.1 MG TABS 1 po bid 7 days, then 1/2 tab po b id 7 days CLONIDINE HCL 0.1 MG TABS 386493 CLONIDINE HCL I nactive ALLOPURINOL 300 MG TABS Take 1 tablet by mouth daily 2 ALLOPURINOL 300 MG TABS 568992 ALLOPURINOL Inactive MECLIZINE HCL 25 MG TAB 1 po tid 3 days, then 1/2 tab tid 3 days MECLIZINE HCL 25 MG TAB 716281 MECLIZINE HCL Inactive LOVENOX 100 MG/ML SC SOLN One injection twice a day 09/15/15 LOVENOX 100 MG/ML SC SOLN 915211 ENOXAPARIN SODIUM Inactive Vital Signs Date Name [...] Ag - Chemistry sodium, serum 141 mmol/L 443-519 5148/07/06 potassium, serum 4.4 mmol/L 3.5-5.2 chloride, serum [...] Panel - Chemistry sodium, serum 137 mmol/L 073-860 0090/11/14 potassium, serum 4.4 mmol/L 3.5-5.2 chloride, serum [...] 8.0 % 4.3-6.0 cholesterol, serum 130 mg/dL 774-045 6274/11/14 triglyceride, serum, fasting 288 mg/dL 30-200 HDL cholesterol, serum 33 mg/dL 32-96 LDL cholesterol, serum 39 mg/dL 0-130 Lab Report: Comp. Metabolic Panel, HGBA1 C, Lipid Panel, Prothrombin Time - Chemistry sodium, serum 136 mmol/L 265-100 3379/12/02 potassium, serum 4.4 mmol/L 3.5-5.2 chloride, serum [...] 7.6 % 4.3-6.0 cholesterol, serum 117 mg/dL 569-132 0069/12/02 triglyceride, serum, fasting 226 mg/dL 30-200 HDL [...] 7.0 % 4.3-6.0 cholesterol, serum 120 mg/dL 572-806 0369/07/06 triglyceride, serum, fasting 186 mg/dL 30-200 HDL [...] 1.0-3.5 Encounters Code Encounter Date Provider Facility CPT-52102 Level 3 Est. Patient 09:37:15 CDT Mitch luis [facility]-19408 Level 3 Est. Patient 17:01:00 CUTTER INSPECTOR Mitch luis [facility] CPT-96007 Level 3 Est. Patient 13:53:19 CUTTER INSPECTOR [address] l[address] [facility] CPT-24308 Level 3 Est. Patient 19:19:37 CUTTER INSPECTOR Mitch luis [facility] CPT-32761 Level 3 Est. Patient 13:25:53 CUTTER INSPECTOR Tavo toure MD [facility]-67133 Level 3 Est. Patient 18:17:28 CDT Mitch Arnol L janelle [facility]-37863 Level 3 Est. Patient 15:22:57 CDT Mitch Arnol L janelle [facility]-02117 Level 3 Est. Patient 18:21:50 CDT Mitch W L janelle [facility]-35491 Level 3 Est. Patient 18:20:38 CDT Mitch W L janelle [facility]-19234 Level 3 Est. Patient 15:37:55 CDT Mitch W L janelle [facility] CPT-68569 Level 2 Est. Patient 15:54:44 CDT Carmine benton MD [facility]-49501 Level 3 Est. Patient 21:46:01 CUTTER INSPECTOR Mitch W L janelle [facility] CPT-34480 Level 3 Est. Patient 22:15:50 CDT Mitch W L ee [facility]-90229 Level 3 Est. Patient 10:48:15 CDT Mitch W L ee [facility] CPT-22205 Level 3 Est. Patient 23:20:57 CDT Tavo toure MD [facility] CPT-14237 Level 3 Est. Patient 16:26:13 CDT Mitch luis DO [facility] Procedures Code Procedure Name Date Entry Date Standard Desc ription CPT-15911 No Charge Offi Visit 21:36:07 CDT 1 CPT-01271 Venipuncture Draw Fee 10:13:28 CUTTER INSPECTOR CPT-95983 Venipuncture Draw Fee 08:31:11 CDT CPT-23908 Aspir/Inject Med Joint 18:17:28 CDT CPT-41965 Venipuncture Draw Fee 10:13:30 CDT CPT-04095 Venipuncture Draw Fee 08:31:43 CUTTER INSPECTOR CPT-JTINJ Joint Injection 18:34:50 CDT CPT-74247 Knee 3V 12:25:09 CDT CPT-90649 Venipuncture Draw Fee 12:15:57 CDT CPT-060 Medical Surveillance Exam 21:31:43 CDT 2011 CPT-64528 Venipuncture Draw Fee 08:32:05 CUTTER INSPECTOR CPT-OV Office Visit 18:19:06 CDT
--- OUTSIDE RECORDS SUMMARY | 2020-01-18 12:49 | XMS REPORT | Clinical Summary ---
Author Author Admin, Mitch Leon Organization [facility] Address Unknown Phone Unavailable Allergies, Adverse Reactions, [...] 1 tablet by mouth daily AMLODIPINE BESYLATE 41405388974 Active Mitch Urbina DO Active MECLIZINE HCL 25 MG TAB 1 po tid 3 days, then 1/2 tab tid 3 days MECLIZINE HCL 21124258938 No Longer Active Corey SEGURA Active ALLOPURINOL 300 MG TABS Take 1 tablet by mouth daily 2 ALLOPURINOL 00679501303 No Longer Active Corey SEGURA Activ e CLONIDINE HCL 0.1 MG TABS 1 po bid 7 days, then 1/2 tab po b id 7 days CLONIDINE HCL 13744685233 No Longer Active Corey SEGURA Active COUMADIN 5 MG TABS 1 tab PO daily WARFARIN SODIUM 85467617681 Active Mitch Urbina DO Active COUMADIN 4 MG TABS 1 tablet daily WARFARIN SODI UM 03117382206 No Longer Active Corey SEGURA Active POLYTRIM 30589-4.1 UNIT/ML-% SOLN 1 drop in affected e ye every 3 hours while awake x 7 days POLYMYXIN B-TRIMETHOPRIM 34938666953 N o Longer Active Corey SEGURA Active LOSARTAN POTASSIUM-HCTZ 100-12.5 MG TABS 1 by mouth da [place] for high blood pressure LOSARTAN POTASSIUM-HCTZ 09572906419 Active Stephy Urbina DO Active LISINOPRIL-HYDROCHLOROTHIAZIDE 20-12.5 MG TABS 1 tab by mouth da rocky LISINOPRIL-HYDROCHLOROTHIAZIDE 16137658384 No Longer Active Mitch luis DO Active LISINOPRIL 20 MG TABS 1 tab po at HS LISINOPRIL 78851239984 No Longer Active Mitch Urbina DO Active COUMADIN 5 MG TABS 1 by mouth every other day WARFARIN SODIUM 10968466830 No Longer Active Mitch Urbina DO Active COUMADIN 6 MG TABS 1 by mouth every other day WARFARIN SODIUM 02761056090 No Longer Active Mitch Urbina DO Active COLCRYS 0.6 MG TABS 1 tab qid prn gout COLCHICINE 39753569400 Active Corey SEGURA Active SIMVASTATIN 40 MG TABS 1 tab daily at bedtime S IMVASTATIN 47070732662 Active Mitch Urbina DO Active SIMVASTATIN 20 MG TABS 1 tab daily at bedtime S IMVASTATIN 09018000358 No Longer Active Mitch Urbina DO Active LOVENOX 100 MG/ML SC SOLN One injection twice a day 09/15/15 ENOXAPARIN SODIUM 46923530006 No Longer Active Carmine Navarrete ctive JANUVIA 50 MG TABS Take one by mouth daily DIEGO GLIPTIN PHOSPHATE 47856026084 Active Mitch Urbina DO Active JANUVIA 100 MG TABS 1/2 by mouth every day DIEGO GLIPTIN PHOSPHATE 38982444393 No Longer Active Bijal Segal RN Active METFORMIN HCL 500 MG TABS 2 by mouth twice daily METFORMIN HCL 38231969549 Active Corey Arias PA Active GLIMEPIRIDE 4 MG TABS 1 tab po bid GLIMEPIRIDE 182770 40355 Active Mitch Urbina DO Active COLCRYS 0.6 MG TABS 1 po q 6 hours prn gout pain 03/02 COLCHICINE 34761389308 No Longer Active Camilamargarita Reese Active LISINOPRIL 5 MG TABS 1 by mouth every day LISIN OPRIL 68290645007 No Longer Active Nguyenmolly Perez Active KLOR-CON 20 MEQ PACK Take one by mouth daily 8 POTASSIUM CHLORIDE 44191697959 No Longer Active Nguyenmolly Perez Active FUROSEMIDE 40 MG TABS 1 by mouth daily FUROSEMI DE 63429318726 No Longer Active Nguyen Perez Active PROVIGIL 200 MG TABS 1/2 tab po q day MODAFINIL 51370 901441 Active Mitch Urbina DO Active PROVIGIL 100 MG TABS Take one by mouth daily MO DAFINIL 41519236741 No Longer Active Mitch Urbina DO Active BACTRIM DS 800-160 MG TAB 1 tab by mouth twice daily TRIMETHOPRIM-SULFAMETHOXAZOLE 64432317120 No Longer Active Renan Hays MD Active FAMOTIDINE 20 MG TABS by mouth twice a day FAMOTI DINE 23748655175 Active Mitch Urbina DO Active ADULT ASPIRIN LOW STRENGTH 81 MG TBDP 1 by mouth every daily ASPIRIN 29374079211 Active Mitch Urbina DO Active METOPROLOL TARTRATE 50 MG TABS 1 by mouth twice daily METOPROLOL TARTRATE 84470140015 Active Curly Coker MD Active BACTRIM DS 800-160 MG TAB 1 tab by mouth twice daily 2 BACTRIM DS 800-160 MG TAB TRIMETHOPRIM-SULFAMETHOXAZOLE Inac tive PROVIGIL 100 MG TABS Take one by mouth daily 4 PROVIGIL 100 MG TABS 820054 MODAFINIL Inactive FUROSEMIDE 40 MG TABS 1 by mouth daily FU ROSEMIDE 40 MG TABS 120595 FUROSEMIDE Inactive KLOR-CON 20 MEQ PACK Take one by mouth daily 8 KLOR-CON 20 MEQ PACK 644024 POTASSIUM CHLORIDE Inactive LISINOPRIL 5 MG TABS 1 by mouth every day LISINOPRIL 5 MG TABS 194625 LISINOPRIL Inactive COLCRYS 0.6 MG TABS 1 po q 6 hours prn gout pain 03/02 COLCRYS 0.6 MG TABS 893624 COLCHICINE Inactive JANUVIA 100 MG TABS 1/2 by mouth every day JANUVI A 100 MG TABS SITAGLIPTIN PHOSPHATE Inactive SIMVASTATIN 20 MG TABS 1 tab daily at bedtime SIMVASTATIN 20 MG TABS 463563 SIMVASTATIN Inactive COUMADIN 6 MG TABS 1 by mouth every other day COUMADIN 6 MG TABS 872212 WARFARIN SODIUM Inactive COUMADIN 5 MG TABS 1 by mouth every other day COUMADIN 5 MG TABS 813588 WARFARIN SODIUM Inactive LISINOPRIL 20 MG TABS 1 tab po at HS KOKI NOPRIL 20 MG TABS 694563 LISINOPRIL Inactive LISINOPRIL-HYDROCHLOROTHIAZIDE 20-12.5 MG TABS 1 tab by mouth da rocky LISINOPRIL-HYDROCHLOROTHIAZIDE 20-12.5 MG TABS 471540 LISINOPRIL-HYDROCHLOROTHIAZIDE Inactive POLYTRIM 38857-9.1 UNIT/ML-% SOLN 1 drop in affected e ye every 3 hours while awake x 7 days POLYTRIM 69456-1.1 UNIT/ML-% SOLN 14101 7 POLYMYXIN B-TRIMETHOPRIM Inactive COUMADIN 4 MG TABS 1 tablet daily COUMADIN 4 MG TABS 379278 WARFARIN SODIUM Inactive CLONIDINE HCL 0.1 MG TABS 1 po bid 7 days, then 1/2 tab po b id 7 days CLONIDINE HCL 0.1 MG TABS 020981 CLONIDINE HCL I nactive ALLOPURINOL 300 MG TABS Take 1 tablet by mouth daily 2 ALLOPURINOL 300 MG TABS 334006 ALLOPURINOL Inactive MECLIZINE HCL 25 MG TAB 1 po tid 3 days, then 1/2 tab tid 3 days MECLIZINE HCL 25 MG TAB 888792 MECLIZINE HCL Inactive LOVENOX 100 MG/ML SC SOLN One injection twice a day 09/15/15 LOVENOX 100 MG/ML SC SOLN 432074 ENOXAPARIN SODIUM Inactive Vital Signs Date Name [...] Acid - Chemistry sodium, serum 136 mmol/L 924-033 7627/07/25 potassium, serum 4.6 mmol/L 3.5-5.2 chloride, serum [...] Ag - Chemistry sodium, serum 141 mmol/L 232-272 0468/07/06 potassium, serum 4.4 mmol/L 3.5-5.2 chloride, serum [...] Panel - Chemistry sodium, serum 137 mmol/L 490-260 4718/11/14 potassium, serum 4.4 mmol/L 3.5-5.2 chloride, serum [...] 8.0 % 4.3-6.0 cholesterol, serum 130 mg/dL 179-073 8667/11/14 triglyceride, serum, fasting 288 mg/dL 30-200 HDL cholesterol, serum 33 mg/dL 32-96 LDL cholesterol, serum 39 mg/dL 0-130 Lab Report: Comp. Metabolic Panel, HGBA1 C, Lipid Panel, Prothrombin Time - Chemistry sodium, serum 136 mmol/L 782-804 0024/12/02 potassium, serum 4.4 mmol/L 3.5-5.2 chloride, serum [...] 7.6 % 4.3-6.0 cholesterol, serum 117 mg/dL 864-691 4964/12/02 triglyceride, serum, fasting 226 mg/dL 30-200 HDL [...] 7.0 % 4.3-6.0 cholesterol, serum 120 mg/dL 379-171 4169/07/06 triglyceride, serum, fasting 186 mg/dL 30-200 HDL [...] 1.0-3.5 Encounters Code Encounter Date Provider Facility CPT-56142 Level 3 Est. Patient 09:37:15 CDT Mitch W L ee [facility] CPT-81840 Level 3 Est. Patient 17:01:00 HAND TILE MAKER Mitch W L janelle [facility] CPT-35109 Level 3 Est. Patient 13:53:19 HAND TILE MAKER Mitch W L ee [facility] CPT-20577 Level 3 Est. Patient 19:19:37 HAND TILE MAKER Mitch W L ee [facility] CPT-38155 Level 3 Est. Patient 13:25:53 HAND TILE MAKER Tavo toure MD [facility] CPT-11940 Level 3 Est. Patient 18:17:28 CDT Mitch W L ee [facility] CPT-65495 Level 3 Est. Patient 15:22:57 CDT Mitch W L ee [facility] CPT-12017 Level 3 Est. Patient 18:21:50 CDT Mitch W L ee [facility] CPT-15355 Level 3 Est. Patient 18:20:38 CDT Mitch W L ee [facility] CPT-84289 Level 3 Est. Patient 15:37:55 CDT Mitch W L ee [facility] CPT-71568 Level 2 Est. Patient 15:54:44 CDT Carmine benton MD [facility] CPT-52891 Level 3 Est. Patient 21:46:01 HAND TILE MAKER Mitch luis [facility] CPT-07185 Level 3 Est. Patient 22:15:50 CDT Mitch luis [facility] CPT-06769 Level 3 Est. Patient 10:48:15 CDT Mitch luis [facility] CPT-00801 Level 3 Est. Patient 23:20:57 CDT Tavo toure MD [facility] CPT-12026 Level 3 Est. Patient 16:26:13 CDT Mitch luis [facility] Procedures Code Procedure Name Date Entry Date Standard Desc ription CPT-36553 No Charge Offi Visit 21:36:07 CDT 1 CPT-27891 Venipuncture Draw Fee 10:13:28 HAND TILE MAKER CPT-40936 Venipuncture Draw Fee 08:31:11 CDT CPT-28025 Aspir/Inject Med Joint 18:17:28 CDT CPT-40198 Venipuncture Draw Fee 10:13:30 CDT CPT-95965 Venipuncture Draw Fee 08:31:43 HAND TILE MAKER CPT-JTINJ Joint Injection 18:34:50 CDT CPT-58877 Knee 3V 12:25:09 CDT CPT-92455 Venipuncture Draw Fee 12:15:57 CDT CPT-060 Medical Surveillance Exam 21:31:43 CDT 2011 CPT-85866 Venipuncture Draw Fee 08:32:05 HAND TILE MAKER CPT-OV Office Visit 18:19:06 CDT
--- OUTSIDE RECORDS SUMMARY | 2020-01-18 12:49 | XMS REPORT | Clinical Summary ---
Author Author Admin, Mitch Leon Organization [facility] Address Unknown Phone Unavailable Allergies, Adverse [...] Coronary atherosclerosis of unspecified type of vessel, [place] or graft EDEMA 782.3 Resolved Mitch Urbina [...] ( 6mg total ) 2015 WARFARIN SODIUM 50472301603 Active Jannette Alcides RMA Act juan INVOKANA 100 MG ORAL TABS 1 tablet orally daily CANAGLIFLOZIN 70928586671 Active Kathie Juan RPT,RMA Active MINOXIDIL 2.5 MG TABS 1 tablet daily for high blood pressure 10/23 MINOXIDIL 90068319540 Active Mitch Urbina DO Active AMLODIPINE BESYLATE 5 MG TABS 1 tablet by mouth daily AMLODIPINE BESYLATE 35059483938 Active Domi Rivera MA Active MECLIZINE HCL 25 MG TAB 1 po tid 3 days, then 1/2 tab tid 3 days MECLIZINE HCL 86968347742 No Longer Active Corey SEGURA Active ALLOPURINOL 300 MG TABS Take 1 tablet by mouth daily 2 ALLOPURINOL 15914307141 No Longer Active Corey SEGURA Activ e CLONIDINE HCL 0.1 MG TABS 1 po bid 7 days, then 1/2 tab po b id 7 days CLONIDINE HCL 36059042988 No Longer Active Corey SEGURA Active COUMADIN 5 MG TABS 1 tab PO daily WARFARIN SODIUM 58788390503 Active Domi Rivera MA Active COUMADIN 4 MG TABS 1 tablet daily WARFARIN SODI UM 47981152668 No Longer Active Corey SEGURA Active POLYTRIM 91992-7.1 UNIT/ML-% SOLN 1 drop in affected e ye every 3 hours while awake x 7 days POLYMYXIN B-TRIMETHOPRIM 78060304634 N o Longer Active Corey SEGURA Active LOSARTAN POTASSIUM-HCTZ 100-12.5 MG TABS 1 by mouth da rocky for high blood pressure LOSARTAN POTASSIUM-HCTZ 64811684917 Active Domi Rivera MA Active LISINOPRIL-HYDROCHLOROTHIAZIDE 20-12.5 MG TABS 1 tab by mouth da rocky LISINOPRIL-HYDROCHLOROTHIAZIDE 82008984083 No Longer Active Mitch luis DO Active LISINOPRIL 20 MG TABS 1 tab po at HS LISINOPRIL 17190626508 No Longer Active Mitch Urbina DO Active COUMADIN 5 MG TABS 1 by mouth every other day WARFARIN SODIUM 38348757948 No Longer Active Mitch Urbina DO Active COUMADIN 6 MG TABS 1 by mouth every other day WARFARIN SODIUM 21762293367 No Longer Active Mitch Urbina DO Active COLCRYS 0.6 MG TABS 1 tab qid prn gout COLCHICINE 87580557700 Active Corey SEGURA Active SIMVASTATIN 40 MG TABS 1 tab daily at bedtime S IMVASTATIN 85608785102 Active Domi Rivera MA Active SIMVASTATIN 20 MG TABS 1 tab daily at bedtime S IMVASTATIN 92726708968 No Longer Active Mitch Urbina DO Active LOVENOX 100 MG/ML SC SOLN One injection twice a day 09/15/15 ENOXAPARIN SODIUM 55412005480 No Longer Active Carmine Navarrete ctive JANUVIA 50 MG TABS Take one by mouth daily DIEGO GLIPTIN PHOSPHATE 95568828853 Active Domi Rivera MA Active JANUVIA 100 MG TABS 1/2 by mouth every day DIEGO GLIPTIN PHOSPHATE 21959884204 No Longer Active Bijal Segal RN Active METFORMIN HCL 500 MG TABS 2 by mouth twice daily METFORMIN HCL 43260888822 Active Domi Rivera MA Active GLIMEPIRIDE 4 MG TABS 1 tab po bid GLIMEPIRIDE 194021 39732 Active Domi Rivera MA Active COLCRYS 0.6 MG TABS 1 po q 6 hours prn gout pain 03/02 COLCHICINE 86636071363 No Longer Active Camila Reese Active LISINOPRIL 5 MG TABS 1 by mouth every day LISIN OPRIL 97420011691 No Longer Active Nguyen Perez Active KLOR-CON 20 MEQ PACK Take one by mouth daily 8 POTASSIUM CHLORIDE 96445771252 No Longer Active Nguyen Perez Active FUROSEMIDE 40 MG TABS 1 by mouth daily FUROSEMI DE 57764491750 No Longer Active Nguyen Perez Active PROVIGIL 200 MG TABS 1/2 tab po q day MODAFINIL 20182 683690 Active Domi Rivera MA Active PROVIGIL 100 MG TABS Take one by mouth daily MO DAFINIL 15801578721 No Longer Active Mitch Urbina DO Active BACTRIM DS 800-160 MG TAB 1 tab by mouth twice daily 2 TRIMETHOPRIM-SULFAMETHOXAZOLE 18244013506 No Longer Active Renan Hays MD Active FAMOTIDINE 20 MG TABS by mouth twice a day FAMOTI DINE 09462646309 Active Mitch Urbina DO Active ADULT ASPIRIN LOW STRENGTH 81 MG TBDP 1 by mouth every daily ASPIRIN 70164968950 Active Mitch Urbina DO Active METOPROLOL TARTRATE 50 MG TABS 1 by mouth twice daily METOPROLOL TARTRATE 85736856601 Active Domi Rivera MA Active BACTRIM DS 800-160 MG TAB 1 tab by mouth twice daily 2 BACTRIM DS 800-160 MG TAB 106702 TRIMETHOPRIM-SULFAMETHOXAZOLE Inac tive PROVIGIL 100 MG TABS Take one by mouth daily 4 PROVIGIL 100 MG TABS 625767 MODAFINIL Inactive FUROSEMIDE 40 MG TABS 1 by mouth daily FU ROSEMIDE 40 MG TABS 904850 FUROSEMIDE Inactive KLOR-CON 20 MEQ PACK Take one by mouth daily 8 KLOR-CON 20 MEQ PACK 814110 POTASSIUM CHLORIDE Inactive LISINOPRIL 5 MG TABS 1 by mouth every day LISINOPRIL 5 MG TABS 958636 LISINOPRIL Inactive COLCRYS 0.6 MG TABS 1 po q 6 hours prn gout pain 03/02 COLCRYS 0.6 MG TABS 608271 COLCHICINE Inactive JANUVIA 100 MG TABS 1/2 by mouth every day JANUVI A 100 MG TABS SITAGLIPTIN PHOSPHATE Inactive SIMVASTATIN 20 MG TABS 1 tab daily at bedtime SIMVASTATIN 20 MG TABS 831183 SIMVASTATIN Inactive COUMADIN 6 MG TABS 1 by mouth every other day COUMADIN 6 MG TABS 258577 WARFARIN SODIUM Inactive COUMADIN 5 MG TABS 1 by mouth every other day COUMADIN 5 MG TABS 416925 WARFARIN SODIUM Inactive LISINOPRIL 20 MG TABS 1 tab po at HS KOKI NOPRIL 20 MG TABS 742747 LISINOPRIL Inactive LISINOPRIL-HYDROCHLOROTHIAZIDE 20-12.5 MG TABS 1 tab by mouth da rocky LISINOPRIL-HYDROCHLOROTHIAZIDE 20-12.5 MG TABS 555292 LISINOPRIL-HYDROCHLOROTHIAZIDE Inactive POLYTRIM 67869-5.1 UNIT/ML-% SOLN 1 drop in affected e ye every 3 hours while awake x 7 days POLYTRIM 07622-5.1 UNIT/ML-% SOLN 09563 7 POLYMYXIN B-TRIMETHOPRIM Inactive COUMADIN 4 MG TABS 1 tablet daily COUMADIN 4 MG TABS 389938 WARFARIN SODIUM Inactive CLONIDINE HCL 0.1 MG TABS 1 po bid 7 days, then 1/2 tab po b id 7 days CLONIDINE HCL 0.1 MG TABS 605542 CLONIDINE HCL I nactive ALLOPURINOL 300 MG TABS Take 1 tablet by mouth daily 2 ALLOPURINOL 300 MG TABS 911301 ALLOPURINOL Inactive MECLIZINE HCL 25 MG TAB 1 po tid 3 days, then 1/2 tab tid 3 days MECLIZINE HCL 25 MG TAB 902832 MECLIZINE HCL Inactive LOVENOX 100 MG/ML SC SOLN One injection twice a day 09/15/15 LOVENOX 100 MG/ML SC SOLN 963178 ENOXAPARIN SODIUM Inactive Vital Signs Date Name [...] Range Description Chart Maintenance: Hemoccult added to [facility] - Chemistry occult blood, stool [...] Ag - Chemistry sodium, serum 141 mmol/L 585-990 0717/07/06 potassium, serum 4.4 mmol/L 3.5-5.2 chloride, serum [...] - Chem istry sodium, serum 136 mmol/L 687-914 4197/01/14 carbon dioxide, venous blood 25.4 mmol/L 21.0-32 [...] 7.0 % 4.3-6.0 cholesterol, serum 120 mg/dL 031-271 8282/07/06 triglyceride, serum, fasting 186 mg/dL 30-200 HDL [...] 1.0-3.5 Encounters Code Encounter Date Provider Facility CPT-13174 Level 3 Est. Patient 09:34:30 [employer] Mitch Ambrose L janelle [facility] CPT-17732 Level 3 Est. Patient 09:37:15 CDT Mitch W L janelle [facility] CPT-71896 Level 3 Est. Patient 17:01:00 [employer] Mitch W L janelle [facility] CPT-92702 Level 3 Est. Patient 13:53:19 [employer] Mitch W L janelle [facility] CPT-72882 Level 3 Est. Patient 19:19:37 [employer] Mitch W L janelle [facility] CPT-12542 Level 3 Est. Patient 13:25:53 [employer] Tavo toure MD [facility] CPT-70485 Level 3 Est. Patient 18:17:28 CDT Mitch W L janelle [facility] CPT-23518 Level 3 Est. Patient 15:22:57 CDT Mitch Arnol L janelle [facility] CPT-88048 Level 3 Est. Patient 18:21:50 CDT Mitch W L ee [facility] CPT-27943 Level 3 Est. Patient 18:20:38 CDT Mitch W L ee [facility] CPT-99629 Level 3 Est. Patient 15:37:55 CDT Mitch W L ee [facility] CPT-60920 Level 2 Est. Patient 15:54:44 CDT Carmine benton MD [facility] CPT-41907 Level 3 Est. Patient 21:46:01 [employer] Mitch W L ee [facility] CPT-08844 Level 3 Est. Patient 22:15:50 CDT Mitch luis [facility] CPT-24659 Level 3 Est. Patient 10:48:15 CDT Mitch luis [facility] CPT-22373 Level 3 Est. Patient 23:20:57 CDT Tavo toure MD [facility] CPT-86829 Level 3 Est. Patient 16:26:13 CDT Mitch luis [facility] Procedures Code Procedure Name Date Entry Date Standard Desc ription CPT-35301 Venipuncture Draw Fee 08:32:21 [employer] CPT-39937 Venipuncture Draw Fee 09:38:56 [employer] CPT-94793 No Charge Offi Visit 21:36:07 CDT 1 CPT-16600 Venipuncture Draw Fee 10:13:28 [employer] CPT-94262 Venipuncture Draw Fee 08:31:11 CDT CPT-87655 Aspir/Inject Med Joint 18:17:28 CDT CPT-00295 Venipuncture Draw Fee 10:13:30 CDT CPT-38168 Venipuncture Draw Fee 08:31:43 [employer] CPT-JTINJ Joint Injection 18:34:50 CDT CPT-67589 Knee 3V 12:25:09 CDT CPT-79272 Venipuncture Draw Fee 12:15:57 CDT CPT-060 Medical Surveillance Exam 21:31:43 CDT 2011 CPT-37496 Venipuncture Draw Fee 08:32:05 [employer] CPT-OV Office Visit 18:19:06 CDT
--- OUTSIDE RECORDS SUMMARY | 2020-01-18 12:50 | XMS REPORT | Clinical Summary ---
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 3 [...] cataplexy CELLULITIS, GROIN, LEFT ICD-682.2 Inactive Zoya Ubrina DO SEROMA ICD-998.13 Inactive Mitch Urbina DO [...] tab to equal 7mg daily WARFARIN SODIUM 83209323972 Active Norma Cazares Active COLCRYS 0.6 MG TABS 1 tab qid prn gout COLCHICINE 88970311241 Active Kathie Juan RPT,RMA Active INVOKANA 100 MG ORAL TABS 1 tablet orally daily CANAGLIFLOZIN 32225752034 Active Mitch Urbina DO Active MINOXIDIL 2.5 MG TABS 1 tablet daily for high blood pressure 10/23 MINOXIDIL 37614571695 Active Domi Rivera MA Active AMLODIPINE BESYLATE 5 MG TABS 1 tablet by mouth daily AMLODIPINE BESYLATE 03574329587 Active Mitch Urbina DO Active MECLIZINE HCL 25 MG TAB 1 po tid 3 days, then 1/2 tab tid 3 days MECLIZINE HCL 07648569185 No Longer Active Corey SEGURA Active ALLOPURINOL 300 MG TABS Take 1 tablet by mouth daily 2 ALLOPURINOL 38365681660 No Longer Active Corey SEGURA Activ e CLONIDINE HCL 0.1 MG TABS 1 po bid 7 days, then 1/2 tab po b id 7 days CLONIDINE HCL 59443629557 No Longer Active Corey SEGURA Active COUMADIN 5 MG TABS 1 tab PO daily WARFARIN SODIUM 58126175460 Active Mitch Urbina DO Active COUMADIN 4 MG TABS 1 tablet daily WARFARIN SODI UM 66494701603 No Longer Active Corey SEGURA Active POLYTRIM 82944-0.1 UNIT/ML-% SOLN 1 drop in affected e ye every 3 hours while awake x 7 days POLYMYXIN B-TRIMETHOPRIM 37464975854 N o Longer Active Corey SEGURA Active LOSARTAN POTASSIUM-HCTZ 100-12.5 MG TABS 1 by mouth [place] for high blood pressure LOSARTAN POTASSIUM-HCTZ 06929555972 Active Stephy Urbina DO Active LISINOPRIL-HYDROCHLOROTHIAZIDE 20-12.5 MG TABS 1 tab by mouth da rocky LISINOPRIL-HYDROCHLOROTHIAZIDE 52056303090 No Longer Active Mitch luis DO Active LISINOPRIL 20 MG TABS 1 tab po at HS LISINOPRIL 07197552431 No Longer Active Mitch Urbina DO Active COUMADIN 5 MG TABS 1 by mouth every other day WARFARIN SODIUM 79067697306 No Longer Active Mitch Urbina DO Active COUMADIN 6 MG TABS 1 by mouth every other day WARFARIN SODIUM 17031187868 No Longer Active Mitch W [place] DO Active SIMVASTATIN 40 MG TABS 1 tab daily at bedtime S IMVASTATIN 23120656624 Active Mitch Arnol Urbina DO Active SIMVASTATIN 20 MG TABS 1 tab daily at bedtime S IMVASTATIN 48610272617 No Longer Active Mitch Urbina DO Active LOVENOX 100 MG/ML SC SOLN One injection twice a day 09/15/15 ENOXAPARIN SODIUM 19396581534 No Longer Active Carmine Navarrete ctive JANUVIA 50 MG TABS Take one by mouth daily DIEGO GLIPTIN PHOSPHATE 03908987101 Active Mitch Urbina DO Active JANUVIA 100 MG TABS 1/2 by mouth every day DIEGO GLIPTIN PHOSPHATE 55120715375 No Longer Active Bijal Segal RN Active METFORMIN HCL 500 MG TABS 2 by mouth twice daily METFORMIN HCL 69625491291 Active Mitch Urbina DO Active GLIMEPIRIDE 4 MG TABS 1 tab po bid GLIMEPIRIDE 310383 71981 Active Mitch Ambrose [place] DO Active COLCRYS 0.6 MG TABS 1 po q 6 hours prn gout pain 03/02 COLCHICINE 56218223625 No Longer Active Camila Reese Active LISINOPRIL 5 MG TABS 1 by mouth every day LISIN OPRIL 85037397373 No Longer Active Nguyen Perez Active KLOR-CON 20 MEQ PACK Take one by mouth daily 8 POTASSIUM CHLORIDE 46590275492 No Longer Active Nguyenmolly Perez Active FUROSEMIDE 40 MG TABS 1 by mouth daily FUROSEMI DE 15208304070 No Longer Active Nguyen Perez Active PROVIGIL 200 MG TABS 1/2 tab po q day MODAFINIL 48999 103642 Active Kathie Juan RPT,RMA Active PROVIGIL 100 MG TABS Take one by mouth daily MO DAFINIL 48851749623 No Longer Active Mitch Urbina DO Active BACTRIM DS 800-160 MG TAB 1 tab by mouth twice daily 2 TRIMETHOPRIM-SULFAMETHOXAZOLE 88277396956 No Longer Active Renan Hays MD Active FAMOTIDINE 20 MG TABS by mouth twice a day FAMOTI DINE 32630281855 Active Mitch Urbina DO Active ADULT ASPIRIN LOW STRENGTH 81 MG TBDP 1 by mouth every daily ASPIRIN 73874640938 Active Mitch Urbina DO Active METOPROLOL TARTRATE 50 MG TABS 1 by mouth twice daily METOPROLOL TARTRATE 73775088664 Active Mitch Urbina DO Active BACTRIM DS 800-160 MG TAB 1 tab by mouth twice daily 2 BACTRIM DS 800-160 MG TAB 198380 TRIMETHOPRIM-SULFAMETHOXAZOLE Inac tive PROVIGIL 100 MG TABS Take one by mouth daily 4 PROVIGIL 100 MG TABS 124071 MODAFINIL Inactive FUROSEMIDE 40 MG TABS 1 by mouth daily FU ROSEMIDE 40 MG TABS 351502 FUROSEMIDE Inactive KLOR-CON 20 MEQ PACK Take one by mouth daily 8 KLOR-CON 20 MEQ PACK 970748 POTASSIUM CHLORIDE Inactive LISINOPRIL 5 MG TABS 1 by mouth every day LISINOPRIL 5 MG TABS 942223 LISINOPRIL Inactive COLCRYS 0.6 MG TABS 1 po q 6 hours prn gout pain 03/02 COLCRYS 0.6 MG TABS 216737 COLCHICINE Inactive JANUVIA 100 MG TABS 1/2 by mouth every day JANUVI A 100 MG TABS SITAGLIPTIN PHOSPHATE Inactive SIMVASTATIN 20 MG TABS 1 tab daily at bedtime SIMVASTATIN 20 MG TABS 025992 SIMVASTATIN Inactive COUMADIN 6 MG TABS 1 by mouth every other day COUMADIN 6 MG TABS 018313 WARFARIN SODIUM Inactive COUMADIN 5 MG TABS 1 by mouth every other day COUMADIN 5 MG TABS 528840 WARFARIN SODIUM Inactive LISINOPRIL 20 MG TABS 1 tab po at HS KOKI NOPRIL 20 MG TABS 822068 LISINOPRIL Inactive LISINOPRIL-HYDROCHLOROTHIAZIDE 20-12.5 MG TABS 1 tab by mouth da rocky LISINOPRIL-HYDROCHLOROTHIAZIDE 20-12.5 MG TABS 038985 LISINOPRIL-HYDROCHLOROTHIAZIDE Inactive POLYTRIM 31194-0.1 UNIT/ML-% SOLN 1 drop in affected e ye every 3 hours while awake x 7 days POLYTRIM 66429-8.1 UNIT/ML-% SOLN 41628 7 POLYMYXIN B-TRIMETHOPRIM Inactive COUMADIN 4 MG TABS 1 tablet daily COUMADIN 4 MG TABS 075329 WARFARIN SODIUM Inactive CLONIDINE HCL 0.1 MG TABS 1 po bid 7 days, then 1/2 tab po b id 7 days CLONIDINE HCL 0.1 MG TABS 624442 CLONIDINE HCL I nactive ALLOPURINOL 300 MG TABS Take 1 tablet by mouth daily 2 ALLOPURINOL 300 MG TABS 480963 ALLOPURINOL Inactive MECLIZINE HCL 25 MG TAB 1 po tid 3 days, then 1/2 tab tid 3 days MECLIZINE HCL 25 MG TAB 778231 MECLIZINE HCL Inactive LOVENOX 100 MG/ML SC SOLN One injection twice a day 09/15/15 LOVENOX 100 MG/ML SC SOLN 471426 ENOXAPARIN SODIUM Inactive Vital Signs Date Name [...] - Chem istry sodium, serum 136 mmol/L 637-415 8917/01/14 carbon dioxide, venous blood 25.4 mmol/L 21.0-32 [...] CBC - Chemistry cholesterol, serum 136 mg/dL 077-161 2959/08/09 triglyceride, serum, fasting 187 mg/dL 30-200 HDL [...] 1.0-3.5 Encounters Code Encounter Date Provider Facility CPT-69710 Level 3 Est. Patient 14:21:06 CDT Mitch luis [facility] CPT-16087 Level 3 Est. Patient 14:52:06 [facility] 3 Est. Patient 09:34:30 BLOCK [place] Mitch luis [facility] CPT-13251 Level 3 Est. Patient 09:37:15 CDT Mitch luis [facility] CPT-73138 Level 3 Est. Patient 17:01:00 BLOCK [place] Mitch luis [facility] CPT-95043 Level 3 Est. Patient 13:53:19 BLOCK [place] Mitch luis [facility] CPT-36624 Level 3 Est. Patient 19:19:37 BLOCK [place] Mitch luis [facility] CPT-51058 Level 3 Est. Patient 13:25:53 BLOCK [place] Tavo toure MD [facility] CPT-58857 Level 3 Est. Patient 18:17:28 CDT Mitch luis [facility] CPT-13830 Level 3 Est. Patient 15:22:57 CDT Mitch luis [facility] CPT-47784 Level 3 Est. Patient 18:21:50 CDT Mitch luis [facility] CPT-59585 Level 3 Est. Patient 18:20:38 CDT Mitch luis [facility] CPT-43883 Level 3 Est. Patient 15:37:55 CDT Mitch luis [facility] CPT-87305 Level 2 Est. Patient 15:54:44 CDT Carmine benton MD [facility] CPT-19661 Level 3 Est. Patient 21:46:01 BLOCK [place] Mitch luis [facility] CPT-54996 Level 3 Est. Patient 22:15:50 CDT Mitch luis [facility] CPT-22708 Level 3 Est. Patient 10:48:15 CDT Mitch luis [facility] CPT-31640 Level 3 Est. Patient 23:20:57 CDT Tavo toure MD [facility] CPT-19049 Level 3 Est. Patient 16:26:13 CDT Mitch luis [facility] Procedures Code Procedure Name Date Entry Date Standard Desc ription CPT-28020 Hemoccult IFOBT - LAB USE ONLY 10:27:22 CDT CPT-77852 Venipuncture Draw Fee 08:27:08 CDT CPT-51469 Liver Profile - LAB USE ONLY 08:27:07 CDT 2 CPT-34550 Microalbumin - LAB USE ONLY 08:27:07 CDT 20 25/05/09 CPT-99238 PT/INR - LAB USE ONLY 08:27:07 CDT CPT-01025 HGBA1C - LAB USE ONLY 08:27:07 CDT CPT-87906 CBC - LAB USE ONLY 08:27:07 CDT CPT-38827 Venipuncture Draw Fee 11:09:14 CDT CPT-32362 Venipuncture Draw Fee 08:32:21 BLOCK [place] CPT-28595 Venipuncture Draw Fee 09:38:56 BLOCK [place] CPT-13433 No Charge Offi Visit 21:36:07 CDT 1 CPT-88194 Venipuncture Draw Fee 10:13:28 BLOCK [place] CPT-10547 Venipuncture Draw Fee 08:31:11 CDT CPT-40140 Aspir/Inject Med Joint 18:17:28 CDT CPT-25127 Venipuncture Draw Fee 10:13:30 CDT CPT-33798 Venipuncture Draw Fee 08:31:43 BLOCK [place] CPT-JTINJ Joint Injection 18:34:50 CDT CPT-27461 Knee 3V 12:25:09 CDT CPT-85034 Venipuncture Draw Fee 12:15:57 CDT CPT-060 Medical Surveillance Exam 21:31:43 CDT 2011 CPT-51819 Venipuncture Draw Fee 08:32:05 BLOCK [place] CPT-OV Office Visit 18:19:06 CDT
--- OUTSIDE RECORDS SUMMARY | 2020-01-18 12:50 | XMS REPORT | Clinical Summary ---
Author Author Admin, Mitch Leon Organization [facility] [employer] Address Unknown Phone Unavailable Allergies, Adverse Reactions, [...] Generic Name NDC Status Provider Patient Instruction LOSARTAN POTASSIUM 100 MG TABS 1 pill by mouth daily, for bl ood pressure LOSARTAN POTASSIUM [id number] Active Ana Wallace Active AMLODIPINE BESYLATE 5 MG TABS 1 tablet by mouth daily AMLODIPINE BESYLATE 93883985032 No Longer Active Joe Williamson APRN Active MITIGARE 0.6 MG ORAL CAPS 2 capsules at onset of gout pain, then take one capsule at 1 hour if symptoms persist. COLCHICINE 59 631284542 Active Mitch Urbina DO Active COUMADIN 1 MG TAB 2 tabs orally daily with the 5mg tab to equal 7mg daily WARFARIN SODIUM 68775412908 Active Mitch Urbina DO Active COLCRYS 0.6 MG TABS 1 tab qid prn gout COLCHICINE 57845015804 Active Norma Cazares Active INVOKANA 100 MG ORAL TABS 1 tablet orally daily CANAGLIFLOZIN 93019245006 Active Mitch Urbina DO Active MINOXIDIL 2.5 MG TABS 1 tablet daily for high blood pressure 10/23 MINOXIDIL 05952465509 Active Mitch Urbina DO Active MECLIZINE HCL 25 MG TAB 1 po tid 3 days, then 1/2 tab tid 3 days MECLIZINE HCL 31458627899 No Longer Active Corey SEGURA Active ALLOPURINOL 300 MG TABS Take 1 tablet by mouth daily 2 ALLOPURINOL 24881994630 No Longer Active Corey SEGURA Activ e CLONIDINE HCL 0.1 MG TABS 1 po bid 7 days, then 1/2 tab po b id 7 days CLONIDINE HCL 61075476742 No Longer Active Corey SEGURA Active COUMADIN 5 MG TABS 1 tab PO daily WARFARIN SODIUM 04263786219 Active Mitch Urbina DO Active COUMADIN 4 MG TABS 1 tablet daily WARFARIN SODI UM 30383303826 No Longer Active Corey SEGURA Active POLYTRIM 02462-0.1 UNIT/ML-% SOLN 1 drop in affected e ye every 3 hours while awake x 7 days POLYMYXIN B-TRIMETHOPRIM 70839184166 N o Longer Active Corey SEGURA Active LOSARTAN POTASSIUM-HCTZ 100-12.5 MG TABS 1 by mouth da [place] for high blood pressure LOSARTAN POTASSIUM-HCTZ 94957506092 No Longer A ctive Mitch Urbina DO Active LISINOPRIL-HYDROCHLOROTHIAZIDE 20-12.5 MG TABS 1 tab by mouth da rocky LISINOPRIL-HYDROCHLOROTHIAZIDE 23566029260 No Longer Active Mitch luis DO Active LISINOPRIL 20 MG TABS 1 tab po at HS LISINOPRIL 47520282814 No Longer Active Mitch Ambrose Carlitos DO Active COUMADIN 5 MG TABS 1 by mouth every other day WARFARIN SODIUM 09198455023 No Longer Active Mitch Urbina DO Active COUMADIN 6 MG TABS 1 by mouth every other day WARFARIN SODIUM 89226157078 No Longer Active Mitch Urbina DO Active SIMVASTATIN 40 MG TABS 1 tab daily at bedtime S IMVASTATIN 28682788123 Active Mitch Ambrose Carlitos DO Active SIMVASTATIN 20 MG TABS 1 tab daily at bedtime S IMVASTATIN 70696943070 No Longer Active Mitch Arnol Urbina DO Active LOVENOX 100 MG/ML SC SOLN One injection twice a day 09/15/15 ENOXAPARIN SODIUM 09836056362 No Longer Active Carmine Navarrete ctive JANUVIA 50 MG TABS Take one by mouth daily DIEGO GLIPTIN PHOSPHATE 55971504522 Active Mitch Urbina DO Active JANUVIA 100 MG TABS 1/2 by mouth every day DIEGO GLIPTIN PHOSPHATE 94172628742 No Longer Active Bijal Segal RN Active METFORMIN HCL 500 MG TABS 2 by mouth twice daily METFORMIN HCL 95184845745 Active Mitch Ambrose Carlitos DO Active GLIMEPIRIDE 4 MG TABS 1 tab po bid GLIMEPIRIDE 582533 08337 Active Mitch Ambrose Carlitos DO Active COLCRYS 0.6 MG TABS 1 po q 6 hours prn gout pain 03/02 COLCHICINE 65646194632 No Longer Active Camila Reese Active LISINOPRIL 5 MG TABS 1 by mouth every day LISIN OPRIL 98870000230 No Longer Active Nguyen Perez Active KLOR-CON 20 MEQ PACK Take one by mouth daily 8 POTASSIUM CHLORIDE 24647283115 No Longer Active Nguyen Perez Active FUROSEMIDE 40 MG TABS 1 by mouth daily FUROSEMI DE 36638720619 No Longer Active Nguyenmac Preez Active PROVIGIL 200 MG TABS 1/2 tab po q day MODAFINIL 75487 970978 Active Mitch Urbina DO Active PROVIGIL 100 MG TABS Take one by mouth daily MO DAFINIL 31811567304 No Longer Active Mitch Urbina DO Active BACTRIM DS 800-160 MG TAB 1 tab by mouth twice daily 2 TRIMETHOPRIM-SULFAMETHOXAZOLE 24371206745 No Longer Active Renan Hays MD Active FAMOTIDINE 20 MG TABS by mouth twice a day FAMOTI DINE 55406861765 Active Mitch Urbina DO Active ADULT ASPIRIN LOW STRENGTH 81 MG TBDP 1 by mouth every daily ASPIRIN 71266266629 Active Mitch Urbina DO Active METOPROLOL TARTRATE 50 MG TABS 1 by mouth twice daily METOPROLOL TARTRATE 74437941676 Active Mitch Urbina DO Active BACTRIM DS 800-160 MG TAB 1 tab by mouth twice daily 2 BACTRIM DS 800-160 MG TAB 458100 TRIMETHOPRIM-SULFAMETHOXAZOLE Inac tive PROVIGIL 100 MG TABS Take one by mouth daily 4 PROVIGIL 100 MG TABS 879755 MODAFINIL Inactive FUROSEMIDE 40 MG TABS 1 by mouth daily FU ROSEMIDE 40 MG TABS 918853 FUROSEMIDE Inactive KLOR-CON 20 MEQ PACK Take one by mouth daily 8 KLOR-CON 20 MEQ PACK 9999118 POTASSIUM CHLORIDE Inactive LISINOPRIL 5 MG TABS 1 by mouth every day LISINOPRIL 5 MG TABS 447782 LISINOPRIL Inactive COLCRYS 0.6 MG TABS 1 po q 6 hours prn gout pain 03/02 COLCRYS 0.6 MG TABS 367236 COLCHICINE Inactive JANUVIA 100 MG TABS 1/2 by mouth every day JANUVI A 100 MG TABS SITAGLIPTIN PHOSPHATE Inactive SIMVASTATIN 20 MG TABS 1 tab daily at bedtime SIMVASTATIN 20 MG TABS 454815 SIMVASTATIN Inactive COUMADIN 6 MG TABS 1 by mouth every other day COUMADIN 6 MG TABS 569903 WARFARIN SODIUM Inactive COUMADIN 5 MG TABS 1 by mouth every other day COUMADIN 5 MG TABS 691447 WARFARIN SODIUM Inactive LISINOPRIL 20 MG TABS 1 tab po at HS KOKI NOPRIL 20 MG TABS 223461 LISINOPRIL Inactive LISINOPRIL-HYDROCHLOROTHIAZIDE 20-12.5 MG TABS 1 tab by mouth da rocky LISINOPRIL-HYDROCHLOROTHIAZIDE 20-12.5 MG TABS 180152 LISINOPRIL-HYDROCHLOROTHIAZIDE Inactive POLYTRIM 56503-3.1 UNIT/ML-% SOLN 1 drop in affected e ye every 3 hours while awake x 7 days POLYTRIM 33400-5.1 UNIT/ML-% SOLN 73219 7 POLYMYXIN B-TRIMETHOPRIM Inactive COUMADIN 4 MG TABS 1 tablet daily COUMADIN 4 MG TABS 603936 WARFARIN SODIUM Inactive CLONIDINE HCL 0.1 MG TABS 1 po bid 7 days, then 1/2 tab po b id 7 days CLONIDINE HCL 0.1 MG TABS 911666 CLONIDINE HCL I nactive ALLOPURINOL 300 MG TABS Take 1 tablet by mouth daily 2 ALLOPURINOL 300 MG TABS 236359 ALLOPURINOL Inactive MECLIZINE HCL 25 MG TAB 1 po tid 3 days, then 1/2 tab tid 3 days MECLIZINE HCL 25 MG TAB 069662 MECLIZINE HCL Inactive AMLODIPINE BESYLATE 5 MG TABS 1 tablet by mouth daily AMLODIPINE BESYLATE 5 MG TABS 260537 AMLODIPINE BESYLATE Inactive LOVENOX 100 MG/ML SC SOLN One injection twice a day 09/15/15 LOVENOX 100 MG/ML [facility] 224575 ENOXAPARIN SODIUM Inactive Vital Signs Date Name [...] Range Description Chart Maintenance: hemoccult added to [facility] - Chemistry occult blood, stool (E&M) Positive Lab Report: Basic Metabolic Panel - Chem istry sodium, serum 139 mmol/L 431-442 7414/07/17 potassium, serum 4.2 mmol/L 3.5-5.2 chloride, serum [...] ... - Chemistry sodium, serum 144 mmol/L 215-253 9370/06/12 carbon dioxide, venous blood 26.6 mmol/L 21.0-32 [...] CBC - Chemistry cholesterol, serum 136 mg/dL 034-787 4239/08/09 triglyceride, serum, fasting 187 mg/dL 30-200 HDL [...] 1.0-3.5 Encounters Code Encounter Date Provider Facility CPT-73805 Level 4 Est. Patient 09:30:18 CDT Mitch luis DO [facility] CPT-42435 Level 3 Est. Patient 15:10:14 CDT Joe kamara [facility] CPT-74170 Level 3 Est. Patient 15:03:46 CDT Joe kamara [facility]-65690 Level 3 Est. Patient 14:21:06 CDT Mitch W L ee [facility]-33109 Level 3 Est. Patient 14:52:06 CDT Joe kamara [facility]-52321 Level 3 Est. Patient 09:34:30 FAMILY MEDICINE PHYSICIAN ASSISTANT Mitch Ambrose L janelle [facility] CPT-04167 Level 3 Est. Patient 09:37:15 CDT Mitch W L ee [facility]-59382 Level 3 Est. Patient 17:01:00 FAMILY MEDICINE PHYSICIAN ASSISTANT Mitch W L ee [facility] CPT-01550 Level 3 Est. Patient 13:53:19 FAMILY MEDICINE PHYSICIAN ASSISTANT Mitch W L janelle [facility] CPT-77210 Level 3 Est. Patient 19:19:37 FAMILY MEDICINE PHYSICIAN ASSISTANT Mitch Ambrose L janelle [facility] CPT-93831 Level 3 Est. Patient 13:25:53 FAMILY MEDICINE PHYSICIAN ASSISTANT aTvo toure MD [facility]-30561 Level 3 Est. Patient 18:17:28 CDT Mitch W L ee [facility] CPT-81757 Level 3 Est. Patient 15:22:57 CDT Mitch W L janelle [facility]-87018 Level 3 Est. Patient 18:21:50 CDT Mitch W L ee [facility]-68678 Level 3 Est. Patient 18:20:38 CDT Mitch W L ee [facility] CPT-44655 Level 3 Est. Patient 15:37:55 CDT Mitch W L ee [facility] CPT-12650 Level 2 Est. Patient 15:54:44 CDT Carmine benton MD [facility]-73278 Level 3 Est. Patient 21:46:01 FAMILY MEDICINE PHYSICIAN ASSISTANT Mitch Ambrose L ee [facility] CPT-46766 Level 3 Est. Patient 22:15:50 CDT Mitch luis [facility] CPT-66876 Level 3 Est. Patient 10:48:15 CDT Mitch luis [facility] CPT-93154 Level 3 Est. Patient 23:20:57 CDT Tavo toure MD [facility] CPT-33736 Level 3 Est. Patient 16:26:13 CDT Mitch luis [facility] Procedures Code Procedure Name Date Entry Date Standard Desc ription CPT-55791 Venipuncture Draw Fee 09:26:17 CDT CPT-38867 PT/INR - LAB USE ONLY 13:32:49 FAMILY MEDICINE PHYSICIAN ASSISTANT CPT-32149 Venipuncture Draw Fee 13:32:49 FAMILY MEDICINE PHYSICIAN ASSISTANT CPT-46630 PT/INR - LAB USE ONLY 10:34:49 FAMILY MEDICINE PHYSICIAN ASSISTANT CPT-70775 Venipuncture Draw Fee 10:34:48 FAMILY MEDICINE PHYSICIAN ASSISTANT CPT-02234 PT/INR - LAB USE ONLY 09:22:03 FAMILY MEDICINE PHYSICIAN ASSISTANT CPT-20607 Venipuncture Draw Fee 09:22:02 FAMILY MEDICINE PHYSICIAN ASSISTANT CPT-72207 Hemoccult IFOBT - LAB USE ONLY 10:27:22 CDT CPT-23267 Venipuncture Draw Fee 08:27:08 CDT CPT-45020 Liver Profile - LAB USE ONLY 08:27:07 CDT 2 CPT-93690 Microalbumin - LAB USE ONLY 08:27:07 CDT 20 25/05/09 CPT-97588 PT/INR - LAB USE ONLY 08:27:07 CDT CPT-83294 HGBA1C - LAB USE ONLY 08:27:07 CDT CPT-54514 CBC - LAB USE ONLY 08:27:07 CDT CPT-57542 Venipuncture Draw Fee 11:09:14 CDT CPT-86941 Venipuncture Draw Fee 08:32:21 FAMILY MEDICINE PHYSICIAN ASSISTANT CPT-21808 Venipuncture Draw Fee 09:38:56 FAMILY MEDICINE PHYSICIAN ASSISTANT CPT-01857 No Charge Offi Visit 21:36:07 CDT 1 CPT-93671 Venipuncture Draw Fee 10:13:28 FAMILY MEDICINE PHYSICIAN ASSISTANT CPT-06045 Venipuncture Draw Fee 08:31:11 CDT CPT-68758 Aspir/Inject Med Joint 18:17:28 CDT CPT-23258 Venipuncture Draw Fee 10:13:30 CDT CPT-77904 Venipuncture Draw Fee 08:31:43 FAMILY MEDICINE PHYSICIAN ASSISTANT CPT-JTINJ Joint Injection 18:34:50 CDT CPT-27864 Knee 3V 12:25:09 CDT CPT-27173 Venipuncture Draw Fee 12:15:57 CDT CPT-060 Medical Surveillance Exam 21:31:43 CDT 2011 CPT-87838 Venipuncture Draw Fee 08:32:05 FAMILY MEDICINE PHYSICIAN ASSISTANT CPT-OV Office Visit 18:19:06 CDT
--- OUTSIDE RECORDS SUMMARY | 2020-01-18 12:50 | XMS REPORT | Clinical Summary ---
Author Author Admin, Mitch Leon Organization [facility] [employer] Address Unknown Phone Unavailable Allergies, Adverse Reactions, [...] Coronary atherosclerosis of unspecified type of vessel, [place] or graft EDEMA 782.3 Resolved Mitch [...] 1 tablet by mouth daily AMLODIPINE BESYLATE 06236380079 No Longer Active Joe Williamson APRN Active MITIGARE 0.6 MG ORAL CAPS 2 capsules at onset of gout pain, then take one capsule at 1 hour if symptoms persist. COLCHICINE 59 470900153 Active Mitch Urbina DO Active COUMADIN 1 MG TAB 2 tabs orally daily with the 5mg tab to equal 7mg daily WARFARIN SODIUM 72832193367 Active Mitch Urbina DO Active COLCRYS 0.6 MG TABS 1 tab qid prn gout COLCHICINE 09748989835 Active Norma Sage Active INVOKANA 100 MG ORAL TABS 1 tablet orally daily CANAGLIFLOZIN 44226511874 Active Mitch Urbina DO Active MINOXIDIL 2.5 MG TABS 1 tablet daily for high blood pressure 10/23 MINOXIDIL 65743840868 Active Mitch Urbina DO Active MECLIZINE HCL 25 MG TAB 1 po tid 3 days, then 1/2 tab tid 3 days MECLIZINE HCL 75758145274 No Longer Active Corey SEGURA Active ALLOPURINOL 300 MG TABS Take 1 tablet by mouth daily 2 ALLOPURINOL 36939514201 No Longer Active Corey SEGURA Activ e CLONIDINE HCL 0.1 MG TABS 1 po bid 7 days, then 1/2 tab po b id 7 days CLONIDINE HCL 00942528850 No Longer Active Corey SEGURA Active COUMADIN 5 MG TABS 1 tab PO daily WARFARIN SODIUM 97392153163 Active Mitch Urbina DO Active COUMADIN 4 MG TABS 1 tablet daily WARFARIN SODI UM 06957095840 No Longer Active Corey SEGURA Active POLYTRIM 05320-5.1 UNIT/ML-% SOLN 1 drop in affected e ye every 3 hours while awake x 7 days POLYMYXIN B-TRIMETHOPRIM 38513511217 N o Longer Active Corey SEGURA Active LOSARTAN POTASSIUM-HCTZ 100-12.5 MG TABS 1 by mouth [place] for high blood pressure LOSARTAN POTASSIUM-HCTZ 74513801278 Active Stephy Urbina DO Active LISINOPRIL-HYDROCHLOROTHIAZIDE 20-12.5 MG TABS 1 tab by mouth da rocky LISINOPRIL-HYDROCHLOROTHIAZIDE 99339049032 No Longer Active Mitch luis DO Active LISINOPRIL 20 MG TABS 1 tab po at HS LISINOPRIL 97495888256 No Longer Active Mitch Urbina DO Active COUMADIN 5 MG TABS 1 by mouth every other day WARFARIN SODIUM 61567580897 No Longer Active Mitch Arnol Carlitos DO Active COUMADIN 6 MG TABS 1 by mouth every other day WARFARIN SODIUM 55859987752 No Longer Active Mitch Urbina DO Active SIMVASTATIN 40 MG TABS 1 tab daily at bedtime S IMVASTATIN 25559796538 Active Mitch Urbina DO Active SIMVASTATIN 20 MG TABS 1 tab daily at bedtime S IMVASTATIN 54542391737 No Longer Active Mitch Urbina DO Active LOVENOX 100 MG/ML SC SOLN One injection twice a day 09/15/15 ENOXAPARIN SODIUM 89819754895 No Longer Active Carmine Navarrete ctive JANUVIA 50 MG TABS Take one by mouth daily DIEGO GLIPTIN PHOSPHATE 54759655452 Active iMtch Urbina DO Active JANUVIA 100 MG TABS 1/2 by mouth every day DIEGO GLIPTIN PHOSPHATE 80792384974 No Longer Active Bijal Segal RN Active METFORMIN HCL 500 MG TABS 2 by mouth twice daily METFORMIN HCL 94214129043 Active Mitch Urbina DO Active GLIMEPIRIDE 4 MG TABS 1 tab po bid GLIMEPIRIDE 851502 13344 Active Mitch Urbina DO Active COLCRYS 0.6 MG TABS 1 po q 6 hours prn gout pain 03/02 COLCHICINE 62877403595 No Longer Active Camila Reese Active LISINOPRIL 5 MG TABS 1 by mouth every day LISIN OPRIL 98020014705 No Longer Active Nguyen Perez Active KLOR-CON 20 MEQ PACK Take one by mouth daily 8 POTASSIUM CHLORIDE 45033038673 No Longer Active Nguyen Perez Active FUROSEMIDE 40 MG TABS 1 by mouth daily FUROSEMI DE 72801967842 No Longer Active Nguyen Perez Active PROVIGIL 200 MG TABS 1/2 tab po q day MODAFINIL 47677 755500 Active Mitch Urbina DO Active PROVIGIL 100 MG TABS Take one by mouth daily MO DAFINIL 63106535097 No Longer Active Mitch Urbina DO Active BACTRIM DS 800-160 MG TAB 1 tab by mouth twice daily 2 TRIMETHOPRIM-SULFAMETHOXAZOLE 96219915043 No Longer Active Renan Hays MD Active FAMOTIDINE 20 MG TABS by mouth twice a day FAMOTI DINE 12104648004 Active Mitch Urbina DO Active ADULT ASPIRIN LOW STRENGTH 81 MG TBDP 1 by mouth every daily ASPIRIN 91903672881 Active Mitch Urbina DO Active METOPROLOL TARTRATE 50 MG TABS 1 by mouth twice daily METOPROLOL TARTRATE 81025118083 Active Mitch Urbina DO Active BACTRIM DS 800-160 MG TAB 1 tab by mouth twice daily 2 BACTRIM DS 800-160 MG TAB 702470 TRIMETHOPRIM-SULFAMETHOXAZOLE Inac tive PROVIGIL 100 MG TABS Take one by mouth daily 4 PROVIGIL 100 MG TABS 963619 MODAFINIL Inactive FUROSEMIDE 40 MG TABS 1 by mouth daily FU ROSEMIDE 40 MG TABS 519222 FUROSEMIDE Inactive KLOR-CON 20 MEQ PACK Take one by mouth daily 8 KLOR-CON 20 MEQ PACK 5208298 POTASSIUM CHLORIDE Inactive LISINOPRIL 5 MG TABS 1 by mouth every day LISINOPRIL 5 MG TABS 374915 LISINOPRIL Inactive COLCRYS 0.6 MG TABS 1 po q 6 hours prn gout pain 03/02 COLCRYS 0.6 MG TABS 752561 COLCHICINE Inactive JANUVIA 100 MG TABS 1/2 by mouth every day JANUVI A 100 MG TABS SITAGLIPTIN PHOSPHATE Inactive SIMVASTATIN 20 MG TABS 1 tab daily at bedtime SIMVASTATIN 20 MG TABS 527929 SIMVASTATIN Inactive COUMADIN 6 MG TABS 1 by mouth every other day COUMADIN 6 MG TABS 014848 WARFARIN SODIUM Inactive COUMADIN 5 MG TABS 1 by mouth every other day COUMADIN 5 MG TABS 183545 WARFARIN SODIUM Inactive LISINOPRIL 20 MG TABS 1 tab po at HS KOKI NOPRIL 20 MG TABS 599820 LISINOPRIL Inactive LISINOPRIL-HYDROCHLOROTHIAZIDE 20-12.5 MG TABS 1 tab by mouth da [place] LISINOPRIL-HYDROCHLOROTHIAZIDE 20-12.5 MG TABS 490242 LISINOPRIL-HYDROCHLOROTHIAZIDE Inactive POLYTRIM 22742-6.1 UNIT/ML-% SOLN 1 drop in affected e ye every 3 hours while awake x 7 days POLYTRIM 08381-0.1 UNIT/ML-% SOLN 15488 7 POLYMYXIN B-TRIMETHOPRIM Inactive COUMADIN 4 MG TABS 1 tablet daily COUMADIN 4 MG TABS 729304 WARFARIN SODIUM Inactive CLONIDINE HCL 0.1 MG TABS 1 po bid 7 days, then 1/2 tab po b id 7 days CLONIDINE HCL 0.1 MG TABS 463284 CLONIDINE HCL I nactive ALLOPURINOL 300 MG TABS Take 1 tablet by mouth daily 2 ALLOPURINOL 300 MG TABS 951260 ALLOPURINOL Inactive MECLIZINE HCL 25 MG TAB 1 po tid 3 days, then 1/2 tab tid 3 days MECLIZINE HCL 25 MG TAB 843215 MECLIZINE HCL Inactive AMLODIPINE BESYLATE 5 MG TABS 1 tablet by mouth daily AMLODIPINE BESYLATE 5 MG TABS 851000 AMLODIPINE BESYLATE Inactive LOVENOX 100 MG/ML SC SOLN One injection twice a day 09/15/15 LOVENOX 100 MG/ML SC SOLN 280611 ENOXAPARIN SODIUM Inactive Vital Signs Date Name [...] ... - Chemistry sodium, serum 144 mmol/L 601-762 7358/06/12 carbon dioxide, venous blood 26.6 mmol/L 21.0-32 [...] CBC - Chemistry cholesterol, serum 136 mg/dL 817-824 6009/08/09 triglyceride, serum, fasting 187 mg/dL 30-200 HDL [...] 1.0-3.5 Encounters Code Encounter Date Provider Facility CPT-82677 Level 4 Est. Patient 09:30:18 CDT Mitch luis [facility] CPT-31216 Level 3 Est. Patient 15:10:14 CDT Joe kamara [facility] CPT-82278 Level 3 Est. Patient 15:03:46 CDT Joe kamara [facility] CPT-87358 Level 3 Est. Patient 14:21:06 CDT Mitch luis [facility] CPT-83589 Level 3 Est. Patient 14:52:06 CDT Joe kamara [facility] CPT-72326 Level 3 Est. Patient 09:34:30 VIRTUAL OFFICE ASSISTANT Mitch luis [facility] CPT-03616 Level 3 Est. Patient 09:37:15 CDT Mitch W L ee [facility] CPT-02572 Level 3 Est. Patient 17:01:00 VIRTUAL OFFICE ASSISTANT Mitch W L ee [facility] CPT-33457 Level 3 Est. Patient 13:53:19 VIRTUAL OFFICE ASSISTANT Mitch W L ee [facility] CPT-53078 Level 3 Est. Patient 19:19:37 VIRTUAL OFFICE ASSISTANT Mitch W L ee [facility] CPT-18558 Level 3 Est. Patient 13:25:53 VIRTUAL OFFICE ASSISTANT Tavo toure MD [facility] [place]-64789 Level 3 Est. Patient 18:17:28 CDT Mitch W L ee [facility] CPT-04958 Level 3 Est. Patient 15:22:57 CDT Mitch W L ee [facility]-09500 Level 3 Est. Patient 18:21:50 CDT Mitch W L ee [facility] CPT-11012 Level 3 Est. Patient 18:20:38 CDT Mitch W L ee [facility]-88656 Level 3 Est. Patient 15:37:55 CDT Mitch W L ee [facility] CPT-46293 Level 2 Est. Patient 15:54:44 CDT Carmine benton MD [facility]-59989 Level 3 Est. Patient 21:46:01 VIRTUAL OFFICE ASSISTANT Mitch W L ee [facility] CPT-58511 Level 3 Est. Patient 22:15:50 CDT Mitch W L ee [facility] CPT-64943 Level 3 Est. Patient 10:48:15 CDT Mitch W L ee [facility] CPT-65702 Level 3 Est. Patient 23:20:57 CDT Tavo toure MD [facility] [place]-84299 Level 3 Est. Patient 16:26:13 CDT Mitch luis DO [facility] Procedures Code Procedure Name Date Entry Date Standard Desc ription CPT-41008 PT/INR - LAB USE ONLY 13:32:49 VIRTUAL OFFICE ASSISTANT CPT-77124 Venipuncture Draw Fee 13:32:49 VIRTUAL OFFICE ASSISTANT CPT-53552 PT/INR - LAB USE ONLY 10:34:49 VIRTUAL OFFICE ASSISTANT CPT-64735 Venipuncture Draw Fee 10:34:48 VIRTUAL OFFICE ASSISTANT CPT-56666 PT/INR - LAB USE ONLY 09:22:03 VIRTUAL OFFICE ASSISTANT CPT-05281 Venipuncture Draw Fee 09:22:02 VIRTUAL OFFICE ASSISTANT CPT-50357 Hemoccult IFOBT - LAB USE ONLY 10:27:22 CDT CPT-35270 Venipuncture Draw Fee 08:27:08 CDT CPT-72733 Liver Profile - LAB USE ONLY 08:27:07 CDT 2 CPT-49943 Microalbumin - LAB USE ONLY 08:27:07 CDT 20 25/05/09 CPT-07939 PT/INR - LAB USE ONLY 08:27:07 CDT CPT-52068 HGBA1C - LAB USE ONLY 08:27:07 CDT CPT-81254 CBC - LAB USE ONLY 08:27:07 CDT CPT-65834 Venipuncture Draw Fee 11:09:14 CDT CPT-50617 Venipuncture Draw Fee 08:32:21 VIRTUAL OFFICE ASSISTANT CPT-10262 Venipuncture Draw Fee 09:38:56 VIRTUAL OFFICE ASSISTANT CPT-26334 No Charge Offi Visit 21:36:07 CDT 1 CPT-44796 Venipuncture Draw Fee 10:13:28 VIRTUAL OFFICE ASSISTANT CPT-18298 Venipuncture Draw Fee 08:31:11 CDT CPT-93615 Aspir/Inject Med Joint 18:17:28 CDT CPT-57772 Venipuncture Draw Fee 10:13:30 CDT CPT-78950 Venipuncture Draw Fee 08:31:43 VIRTUAL OFFICE ASSISTANT CPT-JTINJ Joint Injection 18:34:50 CDT CPT-93867 Knee 3V 12:25:09 CDT CPT-25599 Venipuncture Draw Fee 12:15:57 CDT CPT-060 Medical Surveillance Exam 21:31:43 CDT 2011 CPT-09183 Venipuncture Draw Fee 08:32:05 VIRTUAL OFFICE ASSISTANT CPT-OV Office Visit 18:19:06 CDT
--- OUTSIDE RECORDS SUMMARY | 2020-01-18 12:50 | XMS REPORT | Clinical Summary ---
Author Author Admin, Mitch Leon Organization [facility] Address Unknown Phone Unavailable Allergies, Adverse Reactions, [...] of vessel, [place] or graft EDEMA 782.3 Resolved Mitch Urbina [...] MG ORAL TABS 1 po BID GLIMEPIRIDE 99576 190140 Active Ana Wallace Active KEFLEX 500 MG CAP 1 po qid CEPHALEXIN 218771004 20 No Longer Active Mitch Urbina DO Active LOSARTAN POTASSIUM 100 MG TABS 1 pill by mouth daily, for bl ood pressure LOSARTAN POTASSIUM 11938825742 Active Ana Wallace Active AMLODIPINE BESYLATE 5 MG TABS 1 tablet by mouth daily AMLODIPINE BESYLATE 13665850047 No Longer Active Joe Williamson APRN Active MITIGARE 0.6 MG ORAL CAPS 2 capsules at onset of gout pain, then take one capsule at 1 hour if symptoms persist. COLCHICINE 59 000352517 Active Mitch Urbina DO Active COUMADIN 1 MG TAB 2 tabs orally daily with the 5mg tab to equal 7mg daily WARFARIN SODIUM 79165494885 Active Ana Wallace Active COLCRYS 0.6 MG TABS 1 tab qid prn gout COLCHICINE 61818410623 Active Norma Cazares Active INVOKANA 100 MG ORAL TABS 1 tablet orally daily CANAGLIFLOZIN 76927938909 Active Mitch Urbina DO Active MINOXIDIL 2.5 MG TABS 1 tablet daily for high blood pressure 10/23 MINOXIDIL 22797801846 Active Mitch Urbina DO Active MECLIZINE HCL 25 MG TAB 1 po tid 3 days, then 1/2 tab tid 3 days MECLIZINE HCL 22762227355 No Longer Active Corey SEGURA Active ALLOPURINOL 300 MG TABS Take 1 tablet by mouth daily 2 ALLOPURINOL 52062877443 No Longer Active Corey SEGURA Activ e CLONIDINE HCL 0.1 MG TABS 1 po bid 7 days, then 1/2 tab po b id 7 days CLONIDINE HCL 22331935635 No Longer Active Corey SEGURA Active COUMADIN 5 MG TABS 1 tab PO daily WARFARIN SODIUM 35457611205 Active Mitch Urbina DO Active COUMADIN 4 MG TABS 1 tablet daily WARFARIN SODI UM 82687916116 No Longer Active Corey SEGURA Active POLYTRIM 53669-2.1 UNIT/ML-% SOLN 1 drop in affected e ye every 3 hours while awake x 7 days POLYMYXIN B-TRIMETHOPRIM 99030370092 N o Longer Active Corey SEGURA Active LOSARTAN POTASSIUM-HCTZ 100-12.5 MG TABS 1 by mouth da rocky for high blood pressure LOSARTAN POTASSIUM-HCTZ 43386747978 No Longer A ctive Mitch Urbina DO Active LISINOPRIL-HYDROCHLOROTHIAZIDE 20-12.5 MG TABS 1 tab by mouth da rocky LISINOPRIL-HYDROCHLOROTHIAZIDE 53473365398 No Longer Active Mitch luis DO Active LISINOPRIL 20 MG TABS 1 tab po at HS LISINOPRIL 63968506325 No Longer Active Mitch Urbina DO Active COUMADIN 5 MG TABS 1 by mouth every other day WARFARIN SODIUM 94570124628 No Longer Active Mitch Urbina DO Active COUMADIN 6 MG TABS 1 by mouth every other day WARFARIN SODIUM 85637457963 No Longer Active Mitch Urbina DO Active SIMVASTATIN 40 MG TABS 1 tab daily at bedtime S IMVASTATIN 39084264140 Active Mitch Urbina DO Active SIMVASTATIN 20 MG TABS 1 tab daily at bedtime S IMVASTATIN 70206938741 No Longer Active Mitch Urbina DO Active LOVENOX 100 MG/ML SC SOLN One injection twice a day 09/15/15 ENOXAPARIN SODIUM 61171720923 No Longer Active Carmine Yusuf MD A ctive JANUVIA 50 MG TABS Take one by mouth daily DIEGO GLIPTIN PHOSPHATE 04095062661 Active Mitch Urbina DO Active JANUVIA 100 MG TABS 1/2 by mouth every day DIEGO GLIPTIN PHOSPHATE 00247310898 No Longer Active Bijal Segal RN Active METFORMIN HCL 500 MG TABS 2 by mouth twice daily METFORMIN HCL 46518326738 Active Mitch Urbina DO Active COLCRYS 0.6 MG TABS 1 po q 6 hours prn gout pain 03/02 COLCHICINE 98063145687 No Longer Active Camila Reese Active LISINOPRIL 5 MG TABS 1 by mouth every day LISIN OPRIL 70570472555 No Longer Active Nguyen Perez Active KLOR-CON 20 MEQ PACK Take one by mouth daily 8 POTASSIUM CHLORIDE 72712960599 No Longer Active Nguyen Perez Active FUROSEMIDE 40 MG TABS 1 by mouth daily FUROSEMI DE 27458337795 No Longer Active Nguyen Perez Active PROVIGIL 200 MG TABS 1/2 tab po q day MODAFINIL 50469 372412 Active Mitch Urbina DO Active PROVIGIL 100 MG TABS Take one by mouth daily MO DAFINIL 28712588221 No Longer Active Mitch Urbina DO Active BACTRIM DS 800-160 MG TAB 1 tab by mouth twice daily 2 TRIMETHOPRIM-SULFAMETHOXAZOLE 12081888758 No Longer Active Renan Hays MD Active FAMOTIDINE 20 MG TABS by mouth twice a day FAMOTI DINE 95017328721 Active Mitch Urbina DO Active ADULT ASPIRIN LOW STRENGTH 81 MG TBDP 1 by mouth every daily ASPIRIN 15618691386 Active Mitch Urbina DO Active METOPROLOL TARTRATE 50 MG TABS 1 by mouth twice daily METOPROLOL TARTRATE 36902784609 Active Mitch Urbina DO Active BACTRIM DS 800-160 MG TAB 1 tab by mouth twice daily 2 BACTRIM DS 800-160 MG TAB 336603 TRIMETHOPRIM-SULFAMETHOXAZOLE Inac tive PROVIGIL 100 MG TABS Take one by mouth daily 4 PROVIGIL 100 MG TABS 355013 MODAFINIL Inactive FUROSEMIDE 40 MG TABS 1 by mouth daily FU ROSEMIDE 40 MG TABS 525483 FUROSEMIDE Inactive KLOR-CON 20 MEQ PACK Take one by mouth daily 8 KLOR-CON 20 MEQ PACK 9710804 POTASSIUM CHLORIDE Inactive LISINOPRIL 5 MG TABS 1 by mouth every day LISINOPRIL 5 MG TABS 394082 LISINOPRIL Inactive COLCRYS 0.6 MG TABS 1 po q 6 hours prn gout pain 03/02 COLCRYS 0.6 MG TABS 584561 COLCHICINE Inactive JANUVIA 100 MG TABS 1/2 by mouth every day JANUVI A 100 MG TABS SITAGLIPTIN PHOSPHATE Inactive SIMVASTATIN 20 MG TABS 1 tab daily at bedtime SIMVASTATIN 20 MG TABS 041040 SIMVASTATIN Inactive COUMADIN 6 MG TABS 1 by mouth every other day COUMADIN 6 MG TABS 657923 WARFARIN SODIUM Inactive COUMADIN 5 MG TABS 1 by mouth every other day COUMADIN 5 MG TABS 794320 WARFARIN SODIUM Inactive LISINOPRIL 20 MG TABS 1 tab po at HS KOKI NOPRIL 20 MG TABS 346465 LISINOPRIL Inactive LISINOPRIL-HYDROCHLOROTHIAZIDE 20-12.5 MG TABS 1 tab by mouth da rocky LISINOPRIL-HYDROCHLOROTHIAZIDE 20-12.5 MG TABS 321790 LISINOPRIL-HYDROCHLOROTHIAZIDE Inactive POLYTRIM 94789-3.1 UNIT/ML-% SOLN 1 drop in affected e ye every 3 hours while awake x 7 days POLYTRIM 63029-9.1 UNIT/ML-% SOLN 44438 7 POLYMYXIN B-TRIMETHOPRIM Inactive COUMADIN 4 MG TABS 1 tablet daily COUMADIN 4 MG TABS 326818 WARFARIN SODIUM Inactive CLONIDINE HCL 0.1 MG TABS 1 po bid 7 days, then 1/2 tab po b id 7 days CLONIDINE HCL 0.1 MG TABS 440077 CLONIDINE HCL I nactive ALLOPURINOL 300 MG TABS Take 1 tablet by mouth daily 2 ALLOPURINOL 300 MG TABS 236035 ALLOPURINOL Inactive MECLIZINE HCL 25 MG TAB 1 po tid 3 days, then 1/2 tab tid 3 days MECLIZINE HCL 25 MG TAB 770591 MECLIZINE HCL Inactive AMLODIPINE BESYLATE 5 MG TABS 1 tablet by mouth daily AMLODIPINE BESYLATE 5 MG TABS 018725 AMLODIPINE BESYLATE Inactive KEFLEX 500 MG CAP 1 po qid KEFLEX 500 MG CAP 30 9114 CEPHALEXIN Inactive LOVENOX 100 MG/ML SC SOLN One injection twice a day 09/15/15 LOVENOX 100 MG/ML SC SOLN 016863 ENOXAPARIN SODIUM Inactive Vital Signs Date Name [...] - Chem istry sodium, serum 139 mmol/L 655-559 8459/07/17 potassium, serum 4.2 mmol/L 3.5-5.2 chloride, serum 102 mmol/L 98-107 carbon dioxide, venous blood 28.9 mmol/L 21.0-32 .0 blood glucose 211 mg/dL 65-110 calcium, serum 10.6 mg/dL 8.5-10.1 urea nitrogen, blood 29 mg/dL 7-18 creatinine, serum 1.24 mg/dL 0.60-1.30 sodium, serum 141 mmol/L 266-470 9773/08/07 potassium, serum 4.5 mmol/L 3.5-5.2 chloride, serum [...] ... - Chemistry sodium, serum 144 mmol/L 034-162 1182/06/12 carbon dioxide, venous blood 26.6 mmol/L 21.0-32 [...] 1.0-3.5 Encounters Code Encounter Date Provider Facility CPT-72537 Level 3 Est. Patient 18:25:53 CDT Mitch luis [facility] CPT-75837 Level 3 Est. Patient 19:43:34 CDT Mitch luis [facility] CPT-95530 Level 4 Est. Patient 09:30:18 CDT Mitch luis [facility] CPT-99989 Level 3 Est. Patient 15:10:14 CDT Joe Jason courtangela [facility] CPT-60607 Level 3 Est. Patient 15:03:46 CDT Joe Jason anh [facility] CPT-63903 Level 3 Est. Patient 14:21:06 CDT Mitch luis [facility] CPT-96545 Level 3 Est. Patient 14:52:06 CDT Joe Jason kamara [facility] CPT-08620 Level 3 Est. Patient 09:34:30 STATOR TESTER Mitch luis [facility] CPT-55993 Level 3 Est. Patient 09:37:15 CDT Mitch luis [facility] CPT-52372 Level 3 Est. Patient 17:01:00 STATOR TESTER Mitch luis [facility] CPT-93210 Level 3 Est. Patient 13:53:19 STATOR TESTER Mitch luis [facility] CPT-24155 Level 3 Est. Patient 19:19:37 STATOR TESTER Mitch luis [facility] CPT-13672 Level 3 Est. Patient 13:25:53 STATOR TESTER Tavo toure MD [facility] CPT-71835 Level 3 Est. Patient 18:17:28 CDT Mitch luis [facility] CPT-03015 Level 3 Est. Patient 15:22:57 CDT Mitch luis [facility] CPT-51417 Level 3 Est. Patient 18:21:50 CDT Mitch W L janelle [facility] CPT-22598 Level 3 Est. Patient 18:20:38 CDT Mitch W L janelle [facility] CPT-30456 Level 3 Est. Patient 15:37:55 CDT Mitch W L janelle [facility] CPT-66323 Level 2 Est. Patient 15:54:44 CDT Carmine benton MD [facility] CPT-53904 Level 3 Est. Patient 21:46:01 STATOR TESTER Mitch luis [facility] CPT-83712 Level 3 Est. Patient 22:15:50 CDT Mitch luis [facility] CPT-94258 Level 3 Est. Patient 10:48:15 CDT Mitch luis [facility] CPT-05437 Level 3 Est. Patient 23:20:57 CDT Tavo toure MD [facility] CPT-22820 Level 3 Est. Patient 16:26:13 CDT Mitch Ambrose Nona luis [facility] Procedures Code Procedure Name Date Entry Date Standard Desc ription CPT-11768 Venipuncture Draw Fee 09:26:17 CDT CPT-48940 PT/INR - LAB USE ONLY 13:32:49 STATOR TESTER CPT-56584 Venipuncture Draw Fee 13:32:49 STATOR TESTER CPT-84617 PT/INR - LAB USE ONLY 10:34:49 STATOR TESTER CPT-49226 Venipuncture Draw Fee 10:34:48 STATOR TESTER CPT-30507 PT/INR - LAB USE ONLY 09:22:03 STATOR TESTER CPT-82011 Venipuncture Draw Fee 09:22:02 STATOR TESTER CPT-91811 Hemoccult IFOBT - LAB USE ONLY 10:27:22 CDT CPT-68030 Venipuncture Draw Fee 08:27:08 CDT CPT-37015 Liver Profile - LAB USE ONLY 08:27:07 CDT 2 CPT-76028 Microalbumin - LAB USE ONLY 08:27:07 CDT 20 25/05/09 CPT-07731 PT/INR - LAB USE ONLY 08:27:07 CDT CPT-50601 HGBA1C - LAB USE ONLY 08:27:07 CDT CPT-39147 CBC - LAB USE ONLY 08:27:07 CDT CPT-68101 Venipuncture Draw Fee 11:09:14 CDT CPT-22366 Venipuncture Draw Fee 08:32:21 STATOR TESTER CPT-30691 Venipuncture Draw Fee 09:38:56 STATOR TESTER CPT-51073 No Charge Offi Visit 21:36:07 CDT 1 CPT-96175 Venipuncture Draw Fee 10:13:28 STATOR TESTER CPT-58199 Venipuncture Draw Fee 08:31:11 CDT CPT-97507 Aspir/Inject Med Joint 18:17:28 CDT CPT-78250 Venipuncture Draw Fee 10:13:30 CDT CPT-37001 Venipuncture Draw Fee 08:31:43 STATOR TESTER CPT-JTINJ Joint Injection 18:34:50 CDT CPT-58096 Knee 3V 12:25:09 CDT CPT-14127 Venipuncture Draw Fee 12:15:57 CDT CPT-060 Medical Surveillance Exam 21:31:43 CDT 2011 CPT-44085 Venipuncture Draw Fee 08:32:05 STATOR TESTER CPT-OV Office Visit 18:19:06 CDT
--- OUTSIDE RECORDS SUMMARY | 2020-01-18 12:51 | XMS REPORT | Clinical Summary ---
[...] Coronary atherosclerosis of unspecified type of vessel, [place] or graft EDEMA 782.3 Resolved Mitch Urbina [...] TABS 1 tab qid prn gout COLCHICINE 09756068263 Active Kathie Juan RPT,RMA Active COUMADIN 1 MG TAB take 1 tab daily with 5mg tab. ( 6mg total ) 2015 WARFARIN SODIUM 55119254523 Active Domi Rivera MA Acti ve INVOKANA 100 MG ORAL TABS 1 tablet orally daily CANAGLIFLOZIN 20276980748 Active Kathie Juan RPT,RMA Active MINOXIDIL 2.5 MG TABS 1 tablet daily for high blood pressure 10/23 MINOXIDIL 48420345503 Active Mitch Urbina DO Active AMLODIPINE BESYLATE 5 MG TABS 1 tablet by mouth daily AMLODIPINE BESYLATE 70825127479 Active Domi Rivera MA Active MECLIZINE HCL 25 MG TAB 1 po tid 3 days, then 1/2 tab tid 3 days MECLIZINE HCL 85611087276 No Longer Active Corey SEGURA Active ALLOPURINOL 300 MG TABS Take 1 tablet by mouth daily 2 ALLOPURINOL 27514889303 No Longer Active Corey SEGURA Activ e CLONIDINE HCL 0.1 MG TABS 1 po bid 7 days, then 1/2 tab po b id 7 days CLONIDINE HCL 18023196002 No Longer Active Corey SEGURA Active COUMADIN 5 MG TABS 1 tab PO daily WARFARIN SODIUM 37155395772 Active Domi Rivera MA Active COUMADIN 4 MG TABS 1 tablet daily WARFARIN SODI UM 82718182207 No Longer Active Corey SEGURA Active POLYTRIM 76053-7.1 UNIT/ML-% SOLN 1 drop in affected e ye every 3 hours while awake x 7 days POLYMYXIN B-TRIMETHOPRIM 67600944600 N o Longer Active Corey SEGURA Active LOSARTAN POTASSIUM-HCTZ 100-12.5 MG TABS 1 by mouth [place] for high blood pressure LOSARTAN POTASSIUM-HCTZ 06424877019 Active Domi Rivera MA Active LISINOPRIL-HYDROCHLOROTHIAZIDE 20-12.5 MG TABS 1 tab by mouth da [place] LISINOPRIL-HYDROCHLOROTHIAZIDE 67416372245 No Longer Active Mitch luis DO Active LISINOPRIL 20 MG TABS 1 tab po at HS LISINOPRIL 84190836032 No Longer Active Mitch Urbina DO Active COUMADIN 5 MG TABS 1 by mouth every other day WARFARIN SODIUM 89288881616 No Longer Active Mitch Urbina DO Active COUMADIN 6 MG TABS 1 by mouth every other day WARFARIN SODIUM 89508540746 No Longer Active Mitch Urbina DO Active SIMVASTATIN 40 MG TABS 1 tab daily at bedtime S IMVASTATIN 09714496482 Active Domi Rivera MA Active SIMVASTATIN 20 MG TABS 1 tab daily at bedtime S IMVASTATIN 74240986504 No Longer Active Mitch Urbina DO Active LOVENOX 100 MG/ML SC SOLN One injection twice a day 09/15/15 ENOXAPARIN SODIUM 52823056648 No Longer Active Carmine Navarrete ctive JANUVIA 50 MG TABS Take one by mouth daily DIEGO GLIPTIN PHOSPHATE 41345819290 Active Domi Rivera MA Active JANUVIA 100 MG TABS 1/2 by mouth every day DIEGO GLIPTIN PHOSPHATE 16358904634 No Longer Active Bijal Segal RN Active METFORMIN HCL 500 MG TABS 2 by mouth twice daily METFORMIN HCL 12901376552 Active Kathie Juan RPT,RMA Active GLIMEPIRIDE 4 MG TABS 1 tab po bid GLIMEPIRIDE 941756 37257 Active Kathie Juan RPT,RMA Active COLCRYS 0.6 MG TABS 1 po q 6 hours prn gout pain 03/02 COLCHICINE 31178786570 No Longer Active Camila Reese Active LISINOPRIL 5 MG TABS 1 by mouth every day LISIN OPRIL 32385846760 No Longer Active Nguyen Perez Active KLOR-CON 20 MEQ PACK Take one by mouth daily 8 POTASSIUM CHLORIDE 55785630209 No Longer Active Nguyen Perez Active FUROSEMIDE 40 MG TABS 1 by mouth daily FUROSEMI DE 95520153444 No Longer Active Nguyen Perez Active PROVIGIL 200 MG TABS 1/2 tab po q day MODAFINIL 17930 031374 Active Domi Rivera MA Active PROVIGIL 100 MG TABS Take one by mouth daily MO DAFINIL 75771131215 No Longer Active Mitch Urbina DO Active BACTRIM DS 800-160 MG TAB 1 tab by mouth twice daily 2 TRIMETHOPRIM-SULFAMETHOXAZOLE 55009633331 No Longer Active Renan Hays MD Active FAMOTIDINE 20 MG TABS by mouth twice a day FAMOTI DINE 77528024373 Active Mitch Urbina DO Active ADULT ASPIRIN LOW STRENGTH 81 MG TBDP 1 by mouth every daily ASPIRIN 16206773687 Active Mitch Urbina DO Active METOPROLOL TARTRATE 50 MG TABS 1 by mouth twice daily METOPROLOL TARTRATE 85599034623 Active Domi Rivera MA Active BACTRIM DS 800-160 MG TAB 1 tab by mouth twice daily 2 BACTRIM DS 800-160 MG TAB 532790 TRIMETHOPRIM-SULFAMETHOXAZOLE Inac tive PROVIGIL 100 MG TABS Take one by mouth daily 4 PROVIGIL 100 MG TABS 593910 MODAFINIL Inactive FUROSEMIDE 40 MG TABS 1 by mouth daily FU ROSEMIDE 40 MG TABS 969024 FUROSEMIDE Inactive KLOR-CON 20 MEQ PACK Take one by mouth daily 8 KLOR-CON 20 MEQ PACK 526644 POTASSIUM CHLORIDE Inactive LISINOPRIL 5 MG TABS 1 by mouth every day LISINOPRIL 5 MG TABS 515349 LISINOPRIL Inactive COLCRYS 0.6 MG TABS 1 po q 6 hours prn gout pain 03/02 COLCRYS 0.6 MG TABS 488471 COLCHICINE Inactive JANUVIA 100 MG TABS 1/2 by mouth every day JANUVI A 100 MG TABS SITAGLIPTIN PHOSPHATE Inactive SIMVASTATIN 20 MG TABS 1 tab daily at bedtime SIMVASTATIN 20 MG TABS 602548 SIMVASTATIN Inactive COUMADIN 6 MG TABS 1 by mouth every other day COUMADIN 6 MG TABS 455835 WARFARIN SODIUM Inactive COUMADIN 5 MG TABS 1 by mouth every other day COUMADIN 5 MG TABS 360911 WARFARIN SODIUM Inactive LISINOPRIL 20 MG TABS 1 tab po at HS KOKI NOPRIL 20 MG TABS 420081 LISINOPRIL Inactive LISINOPRIL-HYDROCHLOROTHIAZIDE 20-12.5 MG TABS 1 tab by mouth da [place] LISINOPRIL-HYDROCHLOROTHIAZIDE 20-12.5 MG TABS 486638 LISINOPRIL-HYDROCHLOROTHIAZIDE Inactive POLYTRIM 68573-8.1 UNIT/ML-% SOLN 1 drop in affected e ye every 3 hours while awake x 7 days POLYTRIM 06697-1.1 UNIT/ML-% SOLN 29098 7 POLYMYXIN B-TRIMETHOPRIM Inactive COUMADIN 4 MG TABS 1 tablet daily COUMADIN 4 MG TABS 918917 WARFARIN SODIUM Inactive CLONIDINE HCL 0.1 MG TABS 1 po bid 7 days, then 1/2 tab po b id 7 days CLONIDINE HCL 0.1 MG TABS 032124 CLONIDINE HCL I nactive ALLOPURINOL 300 MG TABS Take 1 tablet by mouth daily 2 ALLOPURINOL 300 MG TABS 995398 ALLOPURINOL Inactive MECLIZINE HCL 25 MG TAB 1 po tid 3 days, then 1/2 tab tid 3 days MECLIZINE HCL 25 MG TAB 990971 MECLIZINE HCL Inactive LOVENOX 100 MG/ML SC SOLN One injection twice a day 09/15/15 LOVENOX 100 MG/ML SC SOLN 772820 ENOXAPARIN SODIUM Inactive Vital Signs Date Name [...] Description Chart Maintenance: [facility] - Chemistry occult blood, stool (E&M) Positive [...] - Chem istry sodium, serum 136 mmol/L 928-741 6510/01/14 carbon dioxide, venous blood 25.4 mmol/L 21.0-32 [...] 1.0-3.5 Encounters Code Encounter Date Provider Facility CPT-86569 Level 3 Est. Patient 09:34:30 POWER TECHNICIAN Mitch luis [facility] CPT-71432 Level 3 Est. Patient 09:37:15 CDT Mitch W L janelle [facility] CPT-42426 Level 3 Est. Patient 17:01:00 POWER TECHNICIAN Mitch Ambrose L janelle [facility] CPT-17119 Level 3 Est. Patient 13:53:19 POWER TECHNICIAN Mitch luis [facility] CPT-40281 Level 3 Est. Patient 19:19:37 POWER TECHNICIAN Mitch luis [facility] CPT-87120 Level 3 Est. Patient 13:25:53 POWER TECHNICIAN Tavo toure MD [facility]-93655 Level 3 Est. Patient 18:17:28 CDT Mitch Ambrose L janelle [facility] CPT-87527 Level 3 Est. Patient 15:22:57 CDT Mitch Arnol L janelle [facility] CPT-69931 Level 3 Est. Patient 18:21:50 CDT Mitch Arnol L janelle [facility] CPT-59240 Level 3 Est. Patient 18:20:38 CDT Mitch Ambrose L janelle [facility]-11013 Level 3 Est. Patient 15:37:55 CDT Mitch W L janelle [facility] CPT-67542 Level 2 Est. Patient 15:54:44 CDT Carmine benton MD [facility]-11532 Level 3 Est. Patient 21:46:01 POWER TECHNICIAN Mitch Ambrose Nona luis [facility] CPT-84670 Level 3 Est. Patient 22:15:50 CDT Mitch Castellano janelle [facility] CPT-34943 Level 3 Est. Patient 10:48:15 CDT Mitch Arnol luis DO [facility] CPT-15133 Level 3 Est. Patient 23:20:57 CDT Tavo toure MD [facility] CPT-54501 Level 3 Est. Patient 16:26:13 CDT Mitch luis [facility] Procedures Code Procedure Name Date Entry Date Standard Desc ription CPT-27523 Venipuncture Draw Fee 08:32:21 POWER TECHNICIAN CPT-30183 Venipuncture Draw Fee 09:38:56 POWER TECHNICIAN CPT-45049 No Charge Offi Visit 21:36:07 CDT 1 CPT-66094 Venipuncture Draw Fee 10:13:28 POWER TECHNICIAN CPT-82892 Venipuncture Draw Fee 08:31:11 CDT CPT-39442 Aspir/Inject Med Joint 18:17:28 CDT CPT-07091 Venipuncture Draw Fee 10:13:30 CDT CPT-57716 Venipuncture Draw Fee 08:31:43 POWER TECHNICIAN CPT-JTINJ Joint Injection 18:34:50 CDT CPT-64065 Knee 3V 12:25:09 CDT CPT-48853 Venipuncture Draw Fee 12:15:57 CDT CPT-060 Medical Surveillance Exam 21:31:43 CDT 2011 CPT-77207 Venipuncture Draw Fee 08:32:05 POWER TECHNICIAN CPT-OV Office Visit 18:19:06 CDT
--- OUTSIDE RECORDS SUMMARY | 2020-01-18 12:51 | XMS REPORT | Clinical Summary ---
Author Author Admin, Mitch Leon Organization [facility] [employer] Address Unknown Phone Unavailable Allergies, Adverse Reactions, [...] Coronary atherosclerosis of unspecified type of vessel, [place] or graft EDEMA 782.3 Resolved Mitch Urbina DO Ed antonia DEGENERATIVE JOINT DISEASE, KNEES, 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 3 Active Mitch Arnol Carlitos DO Osteoarthrosis, unsp ecified whether generalized or localized, involving lower leg DIZZINESS 780.4 Resolved Mitch Arnol Carlitos DO Dizziness and giddiness CAROTID BRUIT, LEFT 785.9 Active Mitch Arnol Carlitos DO Other symptoms involving cardiovascular system GOUT, RIGHT WRIST 274.9 Resolved Mitch Arnol Carltios DO Gout, unspecified BRUISE 924.9 Resolved Mitch [...] ORAL TABLET 1 po BID GLIMEPIRID E 15739725697 Active Renee Oconnor LPN Active KEFLEX 500 MG ORAL CAPSULE 1 po qid CEPHALEXI N 68495218992 No Longer Active Mitch Urbina DO Active LOSARTAN POTASSIUM 100 MG ORAL TABLET 1 pill by mouth daily, for blood pressure LOSARTAN POTASSIUM 94821748249 Active Ana Wallace Active AMLODIPINE BESYLATE 5 MG ORAL TABLET 1 tablet by mouth daily 201 01/20/04 AMLODIPINE BESYLATE 99642194605 No Longer Active Joe fulton APRN Active MITIGARE 0.6 MG ORAL CAPSULE 2 capsules at onset of go ut pain, then take one capsule at 1 hour if symptoms persist. COLCHICINE 59 268611824 Active Mitch Urbina DO Active COUMADIN 1 MG ORAL TABLET 2 tabs orally daily with the 5mg tab to equal 7mg daily WARFARIN SODIUM 47578148863 Active Ana Wallace Active COLCRYS 0.6 MG ORAL TABLET 1 tab qid prn gout C OLCHICINE 76489747660 Active Norma Cazares Active INVOKANA 100 MG ORAL TABLET 1 tablet orally daily CANAGLIFLOZIN 80383926364 Active Mitch Urbina DO Active MINOXIDIL 2.5 MG ORAL TABLET 1 tablet daily for high blood press ure MINOXIDIL 08776764888 Active Mitch Urbina DO Active MECLIZINE HCL 25 MG ORAL TABLET 1 po tid 3 days, then 1/2 ta b tid 3 days MECLIZINE HCL 80698721633 No Longer Active Corey SEGURA Active ALLOPURINOL 300 MG ORAL TABLET Take 1 tablet by mouth daily 2012 ALLOPURINOL 66278951938 No Longer Active Corey SEGURA Active CLONIDINE HCL 0.1 MG ORAL TABLET 1 po bid 7 days, then 1/2 t ab po bid 7 days CLONIDINE HCL 34359008492 No Longer Active Corey SEGURA Active COUMADIN 5 MG ORAL TABLET 1 tab PO daily WARFAR IN SODIUM 45226881934 Active Mitch Urbina DO Active COUMADIN 4 MG ORAL TABLET 1 tablet daily WARFAR IN SODIUM 84874846204 No Longer Active Corey SEGURA Active POLYTRIM 23978-4.1 UNIT/ML-% OPHTHALMIC SOLUTION 1 rui p in affected eye every 3 hours while awake x 7 days POLYMYXIN B-TRIMETHOP RIM 22010682260 No Longer Active Corey SEGURA Active LOSARTAN POTASSIUM-HCTZ 100-12.5 MG ORAL TABLET 1 by m outh daily for high blood pressure LOSARTAN POTASSIUM-HCTZ 08020973155 No Longer A ctive Mitch Urbina DO Active LISINOPRIL-HYDROCHLOROTHIAZIDE 20-12.5 MG ORAL TABLET 1 tab by m outh daily LISINOPRIL-HYDROCHLOROTHIAZIDE 95429195131 No Longer Active Mitch Urbina DO Active LISINOPRIL 20 MG ORAL TABLET 1 tab po at HS LIS INOPRIL 78538604487 No Longer Active Mitch Urbina DO Active COUMADIN 5 MG ORAL TABLET 1 by mouth every other day 2 WARFARIN SODIUM 87602205560 No Longer Active Mitch Urbina DO Active COUMADIN 6 MG ORAL TABLET 1 by mouth every other day 2 WARFARIN SODIUM 39207058296 No Longer Active Mitch Urbina DO Active SIMVASTATIN 40 MG ORAL TABLET 1 tab daily at bedtime SIMVASTATIN 73166165898 Active Mitch Urbina DO Active SIMVASTATIN 20 MG ORAL TABLET 1 tab daily at bedtime 2 SIMVASTATIN 53320869698 No Longer Active Mitch Urbina DO Active LOVENOX 100 MG/ML SUBCUTANEOUS SOLUTION One injection twice a da y ENOXAPARIN SODIUM 04833830641 No Longer Active Carmine Yusuf MD Active JANUVIA 50 MG ORAL TABLET Take one by mouth daily SITAGLIPTIN PHOSPHATE 98878164432 Active Mitch Urbina DO Active JANUVIA 100 MG ORAL TABLET 1/2 by mouth every day 2011 SITAGLIPTIN PHOSPHATE 04283648738 No Longer Active Bijal Segal RN Acti ve METFORMIN HCL 500 MG ORAL TABLET 2 by mouth twice daily METFORMIN HCL 39816742849 Active Mitch Urbina DO Active COLCRYS 0.6 MG ORAL TABLET 1 po q 6 hours prn gout pain COLCHICINE 59193123517 No Longer Active Camila Reese Active LISINOPRIL 5 MG ORAL TABLET 1 by mouth every day 11/17 LISINOPRIL 40313151950 No Longer Active Nguyen Perez Active KLOR-CON 20 MEQ ORAL PACKET Take one by mouth daily 09/10/08 POTASSIUM CHLORIDE 94730386634 No Longer Active Nguyen Coekman Active FUROSEMIDE 40 MG ORAL TABLET 1 by mouth daily F UROSEMIDE 15130971595 No Longer Active Nguyen Perez Active PROVIGIL 200 MG ORAL TABLET 1/2 tab po q day MODA FINIL 94437751820 Active Mitch Urbina DO Active PROVIGIL 100 MG ORAL TABLET Take one by mouth daily 08/20/04 MODAFINIL 63659423292 No Longer Active Mitch Urbina DO Active BACTRIM DS 800-160 MG ORAL TABLET 1 tab by mouth twice daily 201 10/19/09 TRIMETHOPRIM-SULFAMETHOXAZOLE 36930504742 No Longer Active Elian Hays MD Active FAMOTIDINE 20 MG ORAL TABLET by mouth twice a day FAMOTIDINE 57502435362 Active Mitch Urbina DO Active ADULT ASPIRIN LOW STRENGTH 81 MG ORAL TABLET DISINTEGR ATING 1 by mouth every daily ASPIRIN 21271790804 Active Mitch Urbina DO Ac tive METOPROLOL TARTRATE 50 MG ORAL TABLET 1 by mouth twice daily METOPROLOL TARTRATE 67032594828 Active Mitch Urbina DO Active BACTRIM DS 800-160 MG ORAL TABLET 1 tab by mouth twice daily 201 10/19/09 BACTRIM DS 800-160 MG ORAL TABLET 360774 TRIMETHOPRIM-SULFAMETHOXAZOLE Inactive PROVIGIL 100 MG ORAL TABLET Take one by mouth daily 08/20/04 PROVIGIL 100 MG ORAL TABLET 211457 MODAFINIL Inactive FUROSEMIDE 40 MG ORAL TABLET 1 by mouth daily FUROSEMIDE 40 MG ORAL TABLET 890200 FUROSEMIDE Inactive KLOR-CON 20 MEQ ORAL PACKET Take one by mouth daily 09/10/08 KLOR- CON 20 MEQ ORAL PACKET 9567637 POTASSIUM CHLORIDE Inactive LISINOPRIL 5 MG ORAL TABLET 1 by mouth every day 11/17 LISINOPRIL 5 MG ORAL TABLET 602406 LISINOPRIL Inactive COLCRYS 0.6 MG ORAL TABLET 1 po q 6 hours prn gout pain COLCRYS 0.6 MG ORAL TABLET 790914 COLCHICINE Inactive JANUVIA 100 MG ORAL TABLET 1/2 by mouth every day 2011 JANUVIA 100 MG ORAL TABLET SITAGLIPTIN PHOSPHATE Inactive SIMVASTATIN 20 MG ORAL TABLET 1 tab daily at bedtime 2 SIMVASTATIN 20 MG ORAL TABLET 692455 SIMVASTATIN Inactive COUMADIN 6 MG ORAL TABLET 1 by mouth every other day 2 COUMADIN 6 MG ORAL TABLET 899624 WARFARIN SODIUM Inactive COUMADIN 5 MG ORAL TABLET 1 by mouth every other day 2 COUMADIN 5 MG ORAL TABLET 979812 WARFARIN SODIUM Inactive LISINOPRIL 20 MG ORAL TABLET 1 tab po at HS LISINOPRIL 20 MG ORAL TABLET 815300 LISINOPRIL Inactive LISINOPRIL-HYDROCHLOROTHIAZIDE 20-12.5 MG ORAL TABLET 1 tab by m outh daily LISINOPRIL-HYDROCHLOROTHIAZIDE 20-12.5 MG ORAL TABLET 824604 LISINOPRIL-HYDROCHLOROTHIAZIDE Inactive POLYTRIM 67679-5.1 UNIT/ML-% OPHTHALMIC SOLUTION 1 rui p in affected eye every 3 hours while awake x 7 days POLYTRIM 1000 0-0.1 UNIT/ML-% OPHTHALMIC SOLUTION 456296 POLYMYXIN B-TRIMETHOPRIM Inactive COUMADIN 4 MG ORAL TABLET 1 tablet daily COUMADIN 4 MG ORAL TABLET 071560 WARFARIN SODIUM Inactive CLONIDINE HCL 0.1 MG ORAL TABLET 1 po bid 7 days, then 1/2 t ab po bid 7 days CLONIDINE HCL 0.1 MG ORAL TABLET 305757 CLONIDIN E HCL Inactive ALLOPURINOL 300 MG ORAL TABLET Take 1 tablet by mouth daily 2012 ALLOPURINOL 300 MG ORAL TABLET 743752 ALLOPURINOL I nactive MECLIZINE HCL 25 MG ORAL TABLET 1 po tid 3 days, then 1/2 ta b tid 3 days MECLIZINE HCL 25 MG ORAL TABLET 569377 MECLIZINE HCL Inactive AMLODIPINE BESYLATE 5 MG ORAL TABLET 1 tablet by mouth daily 201 01/20/04 AMLODIPINE BESYLATE 5 MG ORAL TABLET 552649 AMLODIPINE BESYLATE Inactive KEFLEX 500 MG ORAL CAPSULE 1 po qid K EFLEX 500 MG ORAL CAPSULE 847984 CEPHALEXIN Inactive LOVENOX 100 MG/ML SUBCUTANEOUS SOLUTION One injection twice a da y LOVENOX 100 MG/ML SUBCUTANEOUS SOLUTION 591570 ENOXAPAR IN SODIUM Inactive Vital Signs Date [...] - Chem istry sodium, serum 139 mmol/L 656-490 8870/07/17 potassium, serum 4.2 mmol/L 3.5-5.2 chloride, serum 102 mmol/L 98-107 carbon dioxide, venous blood 28.9 mmol/L 21.0-32 .0 blood glucose 211 mg/dL 65-110 calcium, serum 10.6 mg/dL 8.5-10.1 urea nitrogen, blood 29 mg/dL 7-18 creatinine, serum 1.24 mg/dL 0.60-1.30 sodium, serum 141 mmol/L 163-252 2113/08/07 potassium, serum 4.5 mmol/L 3.5-5.2 chloride, serum [...] ... - Chemistry sodium, serum 144 mmol/L 768-335 6041/06/12 carbon dioxide, venous blood 26.6 mmol/L 21.0-32 [...] HGBA1C - Chemistry cholesterol, serum 136 mg/dL 185-476 9447/12/06 triglyceride, serum, fasting 247 mg/dL 30-200 HDL [...] 1.0-3.5 Encounters Code Encounter Date Provider Facility CPT-98209 Level 3 Est. Patient 18:25:53 CDT Mitch luis [facility] CPT-54164 Level 3 Est. Patient 19:43:34 CDT Mitch luis [facility] CPT-35511 Level 4 Est. Patient 09:30:18 CDT Mitch luis [facility] CPT-79055 Level 3 Est. Patient 15:10:14 CDT Joe kamara [facility] CPT-77582 Level 3 Est. Patient 15:03:46 CDT Joe kamara [facility] CPT-25826 Level 3 Est. Patient 14:21:06 CDT Mitch luis [facility] CPT-66940 Level 3 Est. Patient 14:52:06 CDT Joe kamara [facility] CPT-71800 Level 3 Est. Patient 09:34:30 LIVING MANAGER Mitch Castellano [facility] CPT-82500 Level 3 Est. Patient 09:37:15 CDT Mitch luis [facility] CPT-95876 Level 3 Est. Patient 17:01:00 LIVING MANAGER Mitch luis [facility] CPT-43813 Level 3 Est. Patient 13:53:19 LIVING MANAGER Mitch W Nona luis [facility] CPT-33992 Level 3 Est. Patient 19:19:37 LIVING MANAGER Mitch W L janelle [facility] CPT-84818 Level 3 Est. Patient 13:25:53 LIVING MANAGER Tavo toure MD [facility] CPT-98157 Level 3 Est. Patient 18:17:28 CDT Mitch W L janelle [facility] CPT-10400 Level 3 Est. Patient 15:22:57 CDT Mitch W L janelle [facility] CPT-89921 Level 3 Est. Patient 18:21:50 CDT Mitch W L janelle [facility] CPT-31649 Level 3 Est. Patient 18:20:38 CDT Mitch W L janelle [facility] CPT-44054 Level 3 Est. Patient 15:37:55 CDT Mitch luis [facility] CPT-66350 Level 2 Est. Patient 15:54:44 CDT Carmine benton MD [facility]-40373 Level 3 Est. Patient 21:46:01 LIVING MANAGER Mitch luis [facility] CPT-16301 Level 3 Est. Patient 22:15:50 CDT Mitch luis [facility] CPT-27987 Level 3 Est. Patient 10:48:15 CDT Mitch W L janelle [facility] CPT-09276 Level 3 Est. Patient 23:20:57 CDT Tavo toure MD [facility]-18143 Level 3 Est. Patient 16:26:13 CDT Mitch Ambrose L janelle [facility] Procedures Code Procedure Name Date Entry Date Standard Desc ription CPT-58293 Venipuncture Draw Fee 09:26:17 CDT CPT-69155 PT/INR - LAB USE ONLY 13:32:49 LIVING MANAGER CPT-68413 Venipuncture Draw Fee 13:32:49 LIVING MANAGER CPT-05413 PT/INR - LAB USE ONLY 10:34:49 LIVING MANAGER CPT-44825 Venipuncture Draw Fee 10:34:48 LIVING MANAGER CPT-14747 PT/INR - LAB USE ONLY 09:22:03 LIVING MANAGER CPT-48769 Venipuncture Draw Fee 09:22:02 LIVING MANAGER CPT-74315 Hemoccult IFOBT - LAB USE ONLY 10:27:22 CDT CPT-78973 Venipuncture Draw Fee 08:27:08 CDT CPT-98895 Liver Profile - LAB USE ONLY 08:27:07 CDT 2 CPT-97193 Microalbumin - LAB USE ONLY 08:27:07 CDT 20 25/05/09 CPT-49332 PT/INR - LAB USE ONLY 08:27:07 CDT CPT-61879 HGBA1C - LAB USE ONLY 08:27:07 CDT CPT-61885 CBC - LAB USE ONLY 08:27:07 CDT CPT-92252 Venipuncture Draw Fee 11:09:14 CDT CPT-96257 Venipuncture Draw Fee 08:32:21 LIVING MANAGER CPT-14573 Venipuncture Draw Fee 09:38:56 LIVING MANAGER CPT-45080 No Charge Offi Visit 21:36:07 CDT 1 CPT-92429 Venipuncture Draw Fee 10:13:28 LIVING MANAGER CPT-93582 Venipuncture Draw Fee 08:31:11 CDT CPT-07520 Aspir/Inject Med Joint 18:17:28 CDT CPT-17636 Venipuncture Draw Fee 10:13:30 CDT CPT-63786 Venipuncture Draw Fee 08:31:43 LIVING MANAGER CPT-JTINJ Joint Injection 18:34:50 CDT CPT-44794 Knee 3V 12:25:09 CDT CPT-36572 Venipuncture Draw Fee 12:15:57 CDT CPT-060 Medical Surveillance Exam 21:31:43 CDT 2011 CPT-12120 Venipuncture Draw Fee 08:32:05 LIVING MANAGER CPT-OV Office Visit 18:19:06 CDT
--- OUTSIDE RECORDS SUMMARY | 2020-01-18 12:51 | XMS REPORT | Clinical Summary ---
Author Author Admin, Mitch Leon Organization [facility] [employer] Address Unknown Phone Unavailable Allergies, Adverse Reactions, [...] MG ORAL TABS 1 po BID GLIMEPIRIDE 27626 041733 Active Ana Wallace Active KEFLEX 500 MG CAP 1 po qid CEPHALEXIN 332445872 20 No Longer Active Mitch Urbina DO Active LOSARTAN POTASSIUM 100 MG TABS 1 pill by mouth daily, for bl ood pressure LOSARTAN POTASSIUM 14418343973 Active Ana Wallace Active AMLODIPINE BESYLATE 5 MG TABS 1 tablet by mouth daily AMLODIPINE BESYLATE 46847160598 No Longer Active Joe Williamson APRN Active MITIGARE 0.6 MG ORAL CAPS 2 capsules at onset of gout pain, then take one capsule at 1 hour if symptoms persist. COLCHICINE 59 535973581 Active Mitch Urbina DO Active COUMADIN 1 MG TAB 2 tabs orally daily with the 5mg tab to equal 7mg daily WARFARIN SODIUM 37437951639 Active Mitch Urbina DO Active COLCRYS 0.6 MG TABS 1 tab qid prn gout COLCHICINE 39125489126 Active Norma Cazares Active INVOKANA 100 MG ORAL TABS 1 tablet orally daily CANAGLIFLOZIN 34380436399 Active Mitch Urbina DO Active MINOXIDIL 2.5 MG TABS 1 tablet daily for high blood pressure 10/23 MINOXIDIL 12363285970 Active Mitch Urbina DO Active MECLIZINE HCL 25 MG TAB 1 po tid 3 days, then 1/2 tab tid 3 days MECLIZINE HCL 48597163525 No Longer Active Corey SEGURA Active ALLOPURINOL 300 MG TABS Take 1 tablet by mouth daily 2 ALLOPURINOL 99558185709 No Longer Active Corey SEGURA Activ e CLONIDINE HCL 0.1 MG TABS 1 po bid 7 days, then 1/2 tab po b id 7 days CLONIDINE HCL 05485799921 No Longer Active Corey SEGURA Active COUMADIN 5 MG TABS 1 tab PO daily WARFARIN SODIUM 08171422702 Active Mitch Urbina DO Active COUMADIN 4 MG TABS 1 tablet daily WARFARIN SODI UM 81739297145 No Longer Active Corey SEGURA Active POLYTRIM 21181-6.1 UNIT/ML-% SOLN 1 drop in affected e ye every 3 hours while awake x 7 days POLYMYXIN B-TRIMETHOPRIM 22001905114 N o Longer Active Corey SEGURA Active LOSARTAN POTASSIUM-HCTZ 100-12.5 MG TABS 1 by mouth da rocky for high blood pressure LOSARTAN POTASSIUM-HCTZ 81190223743 No Longer A ctive Mitch Urbina DO Active LISINOPRIL-HYDROCHLOROTHIAZIDE 20-12.5 MG TABS 1 tab by mouth da rocky LISINOPRIL-HYDROCHLOROTHIAZIDE 73106117121 No Longer Active Mitch luis DO Active LISINOPRIL 20 MG TABS 1 tab po at HS LISINOPRIL 43882124353 No Longer Active Mitch Urbina DO Active COUMADIN 5 MG TABS 1 by mouth every other day WARFARIN SODIUM 33660702244 No Longer Active Mitch Urbina DO Active COUMADIN 6 MG TABS 1 by mouth every other day WARFARIN SODIUM 17503434976 No Longer Active Mitch Urbina DO Active SIMVASTATIN 40 MG TABS 1 tab daily at bedtime S IMVASTATIN 35378825538 Active Mitch Urbina DO Active SIMVASTATIN 20 MG TABS 1 tab daily at bedtime S IMVASTATIN 50167362058 No Longer Active Mitch Urbina DO Active LOVENOX 100 MG/ML SC SOLN One injection twice a day 09/15/15 ENOXAPARIN SODIUM 70622989613 No Longer Active Carmine Yusuf MD A ctive JANUVIA 50 MG TABS Take one by mouth daily DIEGO GLIPTIN PHOSPHATE 15428427785 Active Mitch Urbina DO Active JANUVIA 100 MG TABS 1/2 by mouth every day DIEGO GLIPTIN PHOSPHATE 33441048881 No Longer Active Bijal Segal RN Active METFORMIN HCL 500 MG TABS 2 by mouth twice daily METFORMIN HCL 00079692843 Active Mitch Urbina DO Active COLCRYS 0.6 MG TABS 1 po q 6 hours prn gout pain 03/02 COLCHICINE 48509299360 No Longer Active Camila Reese Active LISINOPRIL 5 MG TABS 1 by mouth every day LISIN OPRIL 21034579837 No Longer Active Nguyen Perez Active KLOR-CON 20 MEQ PACK Take one by mouth daily 8 POTASSIUM CHLORIDE 94995706385 No Longer Active Nguyen Perez Active FUROSEMIDE 40 MG TABS 1 by mouth daily FUROSEMI DE 31047992282 No Longer Active Nguyen Perez Active PROVIGIL 200 MG TABS 1/2 tab po q day MODAFINIL 95674 673005 Active Mitch Urbina DO Active PROVIGIL 100 MG TABS Take one by mouth daily MO DAFINIL 47817644146 No Longer Active Mitch Urbina DO Active BACTRIM DS 800-160 MG TAB 1 tab by mouth twice daily 2 TRIMETHOPRIM-SULFAMETHOXAZOLE 18054012013 No Longer Active Renan Hays MD Active FAMOTIDINE 20 MG TABS by mouth twice a day FAMOTI DINE 26761290119 Active Mitch Urbina DO Active ADULT ASPIRIN LOW STRENGTH 81 MG TBDP 1 by mouth every daily ASPIRIN 75008024649 Active Mitch Urbina DO Active METOPROLOL TARTRATE 50 MG TABS 1 by mouth twice daily METOPROLOL TARTRATE 21056339898 Active Mitch Urbina DO Active BACTRIM DS 800-160 MG TAB 1 tab by mouth twice daily 2 BACTRIM DS 800-160 MG TAB 831371 TRIMETHOPRIM-SULFAMETHOXAZOLE Inac tive PROVIGIL 100 MG TABS Take one by mouth daily 4 PROVIGIL 100 MG TABS 547285 MODAFINIL Inactive FUROSEMIDE 40 MG TABS 1 by mouth daily FU ROSEMIDE 40 MG TABS 072296 FUROSEMIDE Inactive KLOR-CON 20 MEQ PACK Take one by mouth daily 8 KLOR-CON 20 MEQ PACK 2128727 POTASSIUM CHLORIDE Inactive LISINOPRIL 5 MG TABS 1 by mouth every day LISINOPRIL 5 MG TABS 893517 LISINOPRIL Inactive COLCRYS 0.6 MG TABS 1 po q 6 hours prn gout pain 03/02 COLCRYS 0.6 MG TABS 420162 COLCHICINE Inactive JANUVIA 100 MG TABS 1/2 by mouth every day JANUVI A 100 MG TABS SITAGLIPTIN PHOSPHATE Inactive SIMVASTATIN 20 MG TABS 1 tab daily at bedtime SIMVASTATIN 20 MG TABS 690942 SIMVASTATIN Inactive COUMADIN 6 MG TABS 1 by mouth every other day COUMADIN 6 MG TABS 334990 WARFARIN SODIUM Inactive COUMADIN 5 MG TABS 1 by mouth every other day COUMADIN 5 MG TABS 230584 WARFARIN SODIUM Inactive LISINOPRIL 20 MG TABS 1 tab po at HS KOKI NOPRIL 20 MG TABS 394032 LISINOPRIL Inactive LISINOPRIL-HYDROCHLOROTHIAZIDE 20-12.5 MG TABS 1 tab by mouth da rocky LISINOPRIL-HYDROCHLOROTHIAZIDE 20-12.5 MG TABS 818800 LISINOPRIL-HYDROCHLOROTHIAZIDE Inactive POLYTRIM 81556-2.1 UNIT/ML-% SOLN 1 drop in affected e ye every 3 hours while awake x 7 days POLYTRIM 92207-3.1 UNIT/ML-% SOLN 65692 7 POLYMYXIN B-TRIMETHOPRIM Inactive COUMADIN 4 MG TABS 1 tablet daily COUMADIN 4 MG TABS 151975 WARFARIN SODIUM Inactive CLONIDINE HCL 0.1 MG TABS 1 po bid 7 days, then 1/2 tab po b id 7 days CLONIDINE HCL 0.1 MG TABS 505478 CLONIDINE HCL I nactive ALLOPURINOL 300 MG TABS Take 1 tablet by mouth daily 2 ALLOPURINOL 300 MG TABS 818087 ALLOPURINOL Inactive MECLIZINE HCL 25 MG TAB 1 po tid 3 days, then 1/2 tab tid 3 days MECLIZINE HCL 25 MG TAB 459777 MECLIZINE HCL Inactive AMLODIPINE BESYLATE 5 MG TABS 1 tablet by mouth daily AMLODIPINE BESYLATE 5 MG TABS 540757 AMLODIPINE BESYLATE Inactive KEFLEX 500 MG CAP 1 po qid KEFLEX 500 MG CAP 30 9114 CEPHALEXIN Inactive LOVENOX 100 MG/ML SC SOLN One injection twice a day 09/15/15 LOVENOX 100 MG/ML SC SOLN 565322 ENOXAPARIN SODIUM Inactive Vital Signs Date Name [...] - Chem istry sodium, serum 139 mmol/L 532-842 9742/07/17 urea nitrogen, blood 29 mg/dL 7-18 creatinine, serum 1.24 mg/dL 0.60-1.30 potassium, serum 4.2 mmol/L 3.5-5.2 chloride, serum 102 mmol/L 98-107 carbon dioxide, venous blood 28.9 mmol/L 21.0-32 .0 blood glucose 211 mg/dL 65-110 calcium, serum 10.6 mg/dL 8.5-10.1 sodium, serum 141 mmol/L 435-103 7329/08/07 urea nitrogen, blood 26 mg/dL 7-18 creatinine, [...] ... - Chemistry sodium, serum 144 mmol/L 278-185 3708/06/12 creatinine, serum 1.32 mg/dL 0.55-1.30 alanine aminotransferase [...] 1.0-3.5 Encounters Code Encounter Date Provider Facility CPT-18130 Level 3 Est. Patient 18:25:53 CDT Mitch luis [facility] CPT-38638 Level 3 Est. Patient 19:43:34 CDT Mitch luis [facility] CPT-08379 Level 4 Est. Patient 09:30:18 CDT Mitch luis [facility] CPT-47092 Level 3 Est. Patient 15:10:14 CDT Joe Jason anh [facility] CPT-24501 Level 3 Est. Patient 15:03:46 CDT Joe Jason yunangela [facility] CPT-99324 Level 3 Est. Patient 14:21:06 CDT Mitch luis [facility] CPT-63921 Level 3 Est. Patient 14:52:06 CDT Joe Jason kamara [facility] CPT-05742 Level 3 Est. Patient 09:34:30 MAIL PROCESSING MACHINE OPERATOR Mitch luis [facility] CPT-43817 Level 3 Est. Patient 09:37:15 CDT Mitch luis [facility] CPT-98749 Level 3 Est. Patient 17:01:00 MAIL PROCESSING MACHINE OPERATOR Mitch luis [facility] CPT-42160 Level 3 Est. Patient 13:53:19 MAIL PROCESSING MACHINE OPERATOR Mitch luis [facility] CPT-43478 Level 3 Est. Patient 19:19:37 MAIL PROCESSING MACHINE OPERATOR Mitch luis [facility] CPT-73288 Level 3 Est. Patient 13:25:53 MAIL PROCESSING MACHINE OPERATOR Tavo toure MD [facility] CPT-38858 Level 3 Est. Patient 18:17:28 CDT Mitch luis [facility] CPT-08537 Level 3 Est. Patient 15:22:57 CDT Mitch luis [facility] CPT-94041 Level 3 Est. Patient 18:21:50 CDT Mitch W L janelle [facility] CPT-39781 Level 3 Est. Patient 18:20:38 CDT Mitch W L janelle [facility] CPT-02621 Level 3 Est. Patient 15:37:55 CDT Mitch Ambrose L janelle [facility] CPT-07810 Level 2 Est. Patient 15:54:44 CDT Carmine benton MD [facility] CPT-35943 Level 3 Est. Patient 21:46:01 MAIL PROCESSING MACHINE OPERATOR Mitch luis [facility] CPT-18383 Level 3 Est. Patient 22:15:50 CDT Mitch luis [facility] CPT-74549 Level 3 Est. Patient 10:48:15 CDT Mitch luis [facility] CPT-71290 Level 3 Est. Patient 23:20:57 CDT Tavo toure MD [facility] CPT-61267 Level 3 Est. Patient 16:26:13 CDT Mitch Arnol luis [facility] Procedures Code Procedure Name Date Entry Date Standard Desc ription CPT-83864 Venipuncture Draw Fee 09:26:17 CDT CPT-66324 PT/INR - LAB USE ONLY 13:32:49 MAIL PROCESSING MACHINE OPERATOR CPT-22864 Venipuncture Draw Fee 13:32:49 MAIL PROCESSING MACHINE OPERATOR CPT-04926 PT/INR - LAB USE ONLY 10:34:49 MAIL PROCESSING MACHINE OPERATOR CPT-31251 Venipuncture Draw Fee 10:34:48 MAIL PROCESSING MACHINE OPERATOR CPT-60884 PT/INR - LAB USE ONLY 09:22:03 MAIL PROCESSING MACHINE OPERATOR CPT-74480 Venipuncture Draw Fee 09:22:02 MAIL PROCESSING MACHINE OPERATOR CPT-40783 Hemoccult IFOBT - LAB USE ONLY 10:27:22 CDT CPT-09267 Venipuncture Draw Fee 08:27:08 CDT CPT-77227 Liver Profile - LAB USE ONLY 08:27:07 CDT 2 CPT-13153 Microalbumin - LAB USE ONLY 08:27:07 CDT 20 25/05/09 CPT-81833 PT/INR - LAB USE ONLY 08:27:07 CDT CPT-57403 HGBA1C - LAB USE ONLY 08:27:07 CDT CPT-55517 CBC - LAB USE ONLY 08:27:07 CDT CPT-21752 Venipuncture Draw Fee 11:09:14 CDT CPT-70187 Venipuncture Draw Fee 08:32:21 MAIL PROCESSING MACHINE OPERATOR CPT-19983 Venipuncture Draw Fee 09:38:56 MAIL PROCESSING MACHINE OPERATOR CPT-53994 No Charge Offi Visit 21:36:07 CDT 1 CPT-25039 Venipuncture Draw Fee 10:13:28 MAIL PROCESSING MACHINE OPERATOR CPT-18028 Venipuncture Draw Fee 08:31:11 CDT CPT-15214 Aspir/Inject Med Joint 18:17:28 CDT CPT-15751 Venipuncture Draw Fee 10:13:30 CDT CPT-18858 Venipuncture Draw Fee 08:31:43 MAIL PROCESSING MACHINE OPERATOR CPT-JTINJ Joint Injection 18:34:50 CDT CPT-26598 Knee 3V 12:25:09 CDT CPT-13516 Venipuncture Draw Fee 12:15:57 CDT CPT-060 Medical Surveillance Exam 21:31:43 CDT 2011 CPT-87833 Venipuncture Draw Fee 08:32:05 MAIL PROCESSING MACHINE OPERATOR CPT-OV Office Visit 18:19:06 CDT
--- OUTSIDE RECORDS SUMMARY | 2020-01-18 12:52 | XMS REPORT | Clinical Summary ---
Author Author Admin, Mitch Leon Organization [facility] Address Unknown Phone Unavailable Allergies, Adverse Reactions, [...] Coronary atherosclerosis of unspecified type of vessel, [place] or graft EDEMA 782.3 Resolved Mitch Urbina [...] ORAL TABS 1 tablet orally daily CANAGLIFLOZIN 17981099261 Active Kathie Juan RPT,RMA Active MINOXIDIL 2.5 MG TABS 1 tablet daily for high blood pressure 10/23 MINOXIDIL 11421112599 Active Mitch Arnol Carlitos Active AMLODIPINE BESYLATE 5 MG TABS 1 tablet by mouth daily AMLODIPINE BESYLATE 03446989265 Active Domi Rievra MA Active MECLIZINE HCL 25 MG TAB 1 po tid 3 days, then 1/2 tab tid 3 days MECLIZINE HCL 65187028776 No Longer Active Corey SEGURA Active ALLOPURINOL 300 MG TABS Take 1 tablet by mouth daily 2 ALLOPURINOL 57701416394 No Longer Active Corey SEGURA Activ e CLONIDINE HCL 0.1 MG TABS 1 po bid 7 days, then 1/2 tab po b id 7 days CLONIDINE HCL 02083012181 No Longer Active Corey SEGURA Active COUMADIN 5 MG TABS 1 tab PO daily WARFARIN SODIUM 32287820749 Active Mitch Urbina DO Active COUMADIN 4 MG TABS 1 tablet daily WARFARIN SODI UM 01826085458 No Longer Active Corey SEGURA Active POLYTRIM 35569-7.1 UNIT/ML-% SOLN 1 drop in affected e ye every 3 hours while awake x 7 days POLYMYXIN B-TRIMETHOPRIM 30409959762 N o Longer Active Corey SEGURA Active LOSARTAN POTASSIUM-HCTZ 100-12.5 MG TABS 1 by mouth da rocky for high blood pressure LOSARTAN POTASSIUM-HCTZ 78669772586 Active Stephy Urbina DO Active LISINOPRIL-HYDROCHLOROTHIAZIDE 20-12.5 MG TABS 1 tab by mouth da rocky LISINOPRIL-HYDROCHLOROTHIAZIDE 63039948419 No Longer Active Mitch luis DO Active LISINOPRIL 20 MG TABS 1 tab po at HS LISINOPRIL 34708213616 No Longer Active Mitch Urbina DO Active COUMADIN 5 MG TABS 1 by mouth every other day WARFARIN SODIUM 47400828364 No Longer Active Mitch Urbina DO Active COUMADIN 6 MG TABS 1 by mouth every other day WARFARIN SODIUM 14052866641 No Longer Active Mitch Urbina DO Active COLCRYS 0.6 MG TABS 1 tab qid prn gout COLCHICINE 94422943005 Active Corey SEGURA Active SIMVASTATIN 40 MG TABS 1 tab daily at bedtime S IMVASTATIN 21600092033 Active Domi Rivera MA Active SIMVASTATIN 20 MG TABS 1 tab daily at bedtime S IMVASTATIN 26365054241 No Longer Active Mitch Urbina DO Active LOVENOX 100 MG/ML SC SOLN One injection twice a day 09/15/15 ENOXAPARIN SODIUM 83637449278 No Longer Active Carmine Navarrete ctive JANUVIA 50 MG TABS Take one by mouth daily DIEGO GLIPTIN PHOSPHATE 09570113797 Active Kathie Juan RPT,RMA Active JANUVIA 100 MG TABS 1/2 by mouth every day DIEGO GLIPTIN PHOSPHATE 80172891692 No Longer Active Bijal Segal RN Active METFORMIN HCL 500 MG TABS 2 by mouth twice daily METFORMIN HCL 27779759130 Active Mitch Urbina DO Active GLIMEPIRIDE 4 MG TABS 1 tab po bid GLIMEPIRIDE 524175 49833 Active Mitch Urbina DO Active COLCRYS 0.6 MG TABS 1 po q 6 hours prn gout pain 03/02 COLCHICINE 47001454273 No Longer Active Camila Reese Active LISINOPRIL 5 MG TABS 1 by mouth every day LISIN OPRIL 34563507404 No Longer Active Nguyenmolly Perez Active KLOR-CON 20 MEQ PACK Take one by mouth daily 8 POTASSIUM CHLORIDE 99556321941 No Longer Active Nguyenmolly Perez Active FUROSEMIDE 40 MG TABS 1 by mouth daily FUROSEMI DE 47144657296 No Longer Active Nguyen Perez Active PROVIGIL 200 MG TABS 1/2 tab po q day MODAFINIL 93403 153369 Active Kathie Juan RPT,RMA Active PROVIGIL 100 MG TABS Take one by mouth daily MO DAFINIL 15851427078 No Longer Active Mitch Urbina DO Active BACTRIM DS 800-160 MG TAB 1 tab by mouth twice daily 2 TRIMETHOPRIM-SULFAMETHOXAZOLE 67114744894 No Longer Active Renan Hays MD Active FAMOTIDINE 20 MG TABS by mouth twice a day FAMOTI DINE 65751737615 Active Mitch Urbina DO Active ADULT ASPIRIN LOW STRENGTH 81 MG TBDP 1 by mouth every daily ASPIRIN 30337127559 Active Mitch Urbina DO Active METOPROLOL TARTRATE 50 MG TABS 1 by mouth twice daily METOPROLOL TARTRATE 05430661774 Active Kathie Juan RPT,RMA Acti ve BACTRIM DS 800-160 MG TAB 1 tab by mouth twice daily 2 BACTRIM DS 800-160 MG TAB 667234 TRIMETHOPRIM-SULFAMETHOXAZOLE Inac tive PROVIGIL 100 MG TABS Take one by mouth daily 4 PROVIGIL 100 MG TABS 993264 MODAFINIL Inactive FUROSEMIDE 40 MG TABS 1 by mouth daily FU ROSEMIDE 40 MG TABS 497091 FUROSEMIDE Inactive KLOR-CON 20 MEQ PACK Take one by mouth daily 8 KLOR-CON 20 MEQ PACK 603688 POTASSIUM CHLORIDE Inactive LISINOPRIL 5 MG TABS 1 by mouth every day LISINOPRIL 5 MG TABS 976429 LISINOPRIL Inactive COLCRYS 0.6 MG TABS 1 po q 6 hours prn gout pain 03/02 COLCRYS 0.6 MG TABS 475891 COLCHICINE Inactive JANUVIA 100 MG TABS 1/2 by mouth every day JANUVI A 100 MG TABS SITAGLIPTIN PHOSPHATE Inactive SIMVASTATIN 20 MG TABS 1 tab daily at bedtime SIMVASTATIN 20 MG TABS 381124 SIMVASTATIN Inactive COUMADIN 6 MG TABS 1 by mouth every other day COUMADIN 6 MG TABS 734737 WARFARIN SODIUM Inactive COUMADIN 5 MG TABS 1 by mouth every other day COUMADIN 5 MG TABS 155922 WARFARIN SODIUM Inactive LISINOPRIL 20 MG TABS 1 tab po at HS KOKI NOPRIL 20 MG TABS 792597 LISINOPRIL Inactive LISINOPRIL-HYDROCHLOROTHIAZIDE 20-12.5 MG TABS 1 tab by mouth da rocky LISINOPRIL-HYDROCHLOROTHIAZIDE 20-12.5 MG TABS 086397 LISINOPRIL-HYDROCHLOROTHIAZIDE Inactive POLYTRIM 12368-9.1 UNIT/ML-% SOLN 1 drop in affected e ye every 3 hours while awake x 7 days POLYTRIM 84824-2.1 UNIT/ML-% SOLN 42732 7 POLYMYXIN B-TRIMETHOPRIM Inactive COUMADIN 4 MG TABS 1 tablet daily COUMADIN 4 MG TABS 426536 WARFARIN SODIUM Inactive CLONIDINE HCL 0.1 MG TABS 1 po bid 7 days, then 1/2 tab po b id 7 days CLONIDINE HCL 0.1 MG TABS 964034 CLONIDINE HCL I nactive ALLOPURINOL 300 MG TABS Take 1 tablet by mouth daily 2 ALLOPURINOL 300 MG TABS 065015 ALLOPURINOL Inactive MECLIZINE HCL 25 MG TAB 1 po tid 3 days, then 1/2 tab tid 3 days MECLIZINE HCL 25 MG TAB 796361 MECLIZINE HCL Inactive LOVENOX 100 MG/ML SC SOLN One injection twice a day 09/15/15 LOVENOX 100 MG/ML SC SOLN 058199 ENOXAPARIN SODIUM Inactive Vital Signs Date Name [...] Ag - Chemistry sodium, serum 141 mmol/L 050-554 9919/07/06 potassium, serum 4.4 mmol/L 3.5-5.2 chloride, serum [...] - Chem istry sodium, serum 136 mmol/L 225-399 9992/01/14 carbon dioxide, venous blood 25.4 mmol/L 21.0-32 [...] 7.0 % 4.3-6.0 cholesterol, serum 120 mg/dL 360-927 6090/07/06 triglyceride, serum, fasting 186 mg/dL 30-200 HDL [...] 1.0-3.5 Encounters Code Encounter Date Provider Facility CPT-39509 Level 3 Est. Patient 09:34:30 CHILD NEUROLOGIST Mitch W L ee DO [facility] CPT-77136 Level 3 Est. Patient 09:37:15 CDT Mitch W L ee DO [facility] CPT-10052 Level 3 Est. Patient 17:01:00 CHILD NEUROLOGIST Mitch W L ee DO [facility] CPT-81399 Level 3 Est. Patient 13:53:19 CHILD NEUROLOGIST Mitch W L ee [facility] CPT-86445 Level 3 Est. Patient 19:19:37 CHILD NEUROLOGIST Mitch W L ee DO [facility] CPT-59187 Level 3 Est. Patient 13:25:53 CHILD NEUROLOGIST Tavo toure MD [facility]-84127 Level 3 Est. Patient 18:17:28 CDT Mitch W L ee [facility] CPT-12462 Level 3 Est. Patient 15:22:57 CDT Mitch W L ee [facility] CPT-08655 Level 3 Est. Patient 18:21:50 CDT Mitch W L ee [facility] CPT-83184 Level 3 Est. Patient 18:20:38 CDT Mitch W L ee [facility] CPT-55884 Level 3 Est. Patient 15:37:55 CDT Mitch W L ee [facility] CPT-94625 Level 2 Est. Patient 15:54:44 CDT Carmine benton MD [facility]-76145 Level 3 Est. Patient 21:46:01 CHILD NEUROLOGIST Mitch W L ee [facility] CPT-15330 Level 3 Est. Patient 22:15:50 CDT Mitch W L ee [facility] CPT-65649 Level 3 Est. Patient 10:48:15 CDT Mitch W L ee [facility] CPT-12440 Level 3 Est. Patient 23:20:57 CDT Tavo toure MD [facility] CPT-66771 Level 3 Est. Patient 16:26:13 CDT Mitch luis DO [facility] Procedures Code Procedure Name Date Entry Date Standard Desc ription CPT-93250 Venipuncture Draw Fee 09:38:56 CHILD NEUROLOGIST CPT-14319 No Charge Offi Visit 21:36:07 CDT 1 CPT-02295 Venipuncture Draw Fee 10:13:28 CHILD NEUROLOGIST CPT-59918 Venipuncture Draw Fee 08:31:11 CDT CPT-24832 Aspir/Inject Med Joint 18:17:28 CDT CPT-88344 Venipuncture Draw Fee 10:13:30 CDT CPT-71474 Venipuncture Draw Fee 08:31:43 CHILD NEUROLOGIST CPT-JTINJ Joint Injection 18:34:50 CDT CPT-08695 Knee 3V 12:25:09 CDT CPT-74676 Venipuncture Draw Fee 12:15:57 CDT CPT-060 Medical Surveillance Exam 21:31:43 CDT 2011 CPT-37623 Venipuncture Draw Fee 08:32:05 CHILD NEUROLOGIST CPT-OV Office Visit 18:19:06 CDT
--- OUTSIDE RECORDS SUMMARY | 2020-01-18 12:52 | XMS REPORT | Clinical Summary ---
Author Author Admin, Mitch Leon Organization 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 3 Active Mitch Urbina DO Osteoarthrosis, unsp ecified whether generalized or localized, involving lower leg DIZZINESS 780.4 Resolved Mitch Urbina DO Dizziness and giddiness CAROTID BRUIT, LEFT 785.9 Active Mitch Arnol Urbina DO Other symptoms involving cardiovascular system GOUT, RIGHT WRIST 274.9 Resolved Micth Arnol Urbina DO Gout, unspecified BRUISE 924.9 [...] ORAL TABS 1 tablet orally daily CANAGLIFLOZIN 01034380549 Active Kathie Juan RPT,RMA Active MINOXIDIL 2.5 MG TABS 1 tablet daily for high blood pressure 10/23 MINOXIDIL 51721773026 Active Mitch Arnol Cariltos DO Active AMLODIPINE BESYLATE 5 MG TABS 1 tablet by mouth daily AMLODIPINE BESYLATE 54622520149 Active Domi Rivera MA Active MECLIZINE HCL 25 MG TAB 1 po tid 3 days, then 1/2 tab tid 3 days MECLIZINE HCL 97502729744 No Longer Active Corey SEGURA Active ALLOPURINOL 300 MG TABS Take 1 tablet by mouth daily 2 ALLOPURINOL 55868599250 No Longer Active Corey SEGURA Activ e CLONIDINE HCL 0.1 MG TABS 1 po bid 7 days, then 1/2 tab po b id 7 days CLONIDINE HCL 15340843539 No Longer Active Corey SEGURA Active COUMADIN 5 MG TABS 1 tab PO daily WARFARIN SODIUM 17771882376 Active Mitch Urbina DO Active COUMADIN 4 MG TABS 1 tablet daily WARFARIN SODI UM 47397243301 No Longer Active Corey SEGURA Active POLYTRIM 72439-8.1 UNIT/ML-% SOLN 1 drop in affected e ye every 3 hours while awake x 7 days POLYMYXIN B-TRIMETHOPRIM 44996001977 N o Longer Active Corey SEGURA Active LOSARTAN POTASSIUM-HCTZ 100-12.5 MG TABS 1 by mouth da [place] for high blood pressure LOSARTAN POTASSIUM-HCTZ 26531040278 Active Stephy Urbina DO Active LISINOPRIL-HYDROCHLOROTHIAZIDE 20-12.5 MG TABS 1 tab by mouth da rocky LISINOPRIL-HYDROCHLOROTHIAZIDE 97527730399 No Longer Active Mitch luis DO Active LISINOPRIL 20 MG TABS 1 tab po at HS LISINOPRIL 30368577309 No Longer Active Mitch Urbina DO Active COUMADIN 5 MG TABS 1 by mouth every other day WARFARIN SODIUM 47656586389 No Longer Active Mitch Urbina DO Active COUMADIN 6 MG TABS 1 by mouth every other day WARFARIN SODIUM 26332591562 No Longer Active Mitch Urbina DO Active COLCRYS 0.6 MG TABS 1 tab qid prn gout COLCHICINE 23487001073 Active Corey SEGURA Active SIMVASTATIN 40 MG TABS 1 tab daily at bedtime S IMVASTATIN 55498785809 Active Domi Rivera MA Active SIMVASTATIN 20 MG TABS 1 tab daily at bedtime S IMVASTATIN 08735005826 No Longer Active Mitch Urbina DO Active LOVENOX 100 MG/ML SC SOLN One injection twice a day 09/15/15 ENOXAPARIN SODIUM 85753947614 No Longer Active Carmine Navarrete ctive JANUVIA 50 MG TABS Take one by mouth daily DIEGO GLIPTIN PHOSPHATE 03236634370 Active Kathie Juan RPT,RMA Active JANUVIA 100 MG TABS 1/2 by mouth every day DIEGO GLIPTIN PHOSPHATE 01203162151 No Longer Active Bijal Segal RN Active METFORMIN HCL 500 MG TABS 2 by mouth twice daily METFORMIN HCL 72207104503 Active Mitch Urbina DO Active GLIMEPIRIDE 4 MG TABS 1 tab po bid GLIMEPIRIDE 537810 55061 Active Mitch Urbina DO Active COLCRYS 0.6 MG TABS 1 po q 6 hours prn gout pain 03/02 COLCHICINE 75838509686 No Longer Active Camila Reese Active LISINOPRIL 5 MG TABS 1 by mouth every day LISIN OPRIL 64297600318 No Longer Active Nguyenmolly Perez Active KLOR-CON 20 MEQ PACK Take one by mouth daily 8 POTASSIUM CHLORIDE 20652695514 No Longer Active Nguyenmolly Perez Active FUROSEMIDE 40 MG TABS 1 by mouth daily FUROSEMI DE 84901191807 No Longer Active Nguyen Perez Active PROVIGIL 200 MG TABS 1/2 tab po q day MODAFINIL 00144 608204 Active Kathie Juan RPT,RMA Active PROVIGIL 100 MG TABS Take one by mouth daily MO DAFINIL 87915969117 No Longer Active Mitch Urbina DO Active BACTRIM DS 800-160 MG TAB 1 tab by mouth twice daily 2 TRIMETHOPRIM-SULFAMETHOXAZOLE 42186368825 No Longer Active Renan Hays MD Active FAMOTIDINE 20 MG TABS by mouth twice a day FAMOTI DINE 54553419417 Active Mitch Urbina DO Active ADULT ASPIRIN LOW STRENGTH 81 MG TBDP 1 by mouth every daily ASPIRIN 00363449414 Active Mitch Urbina DO Active METOPROLOL TARTRATE 50 MG TABS 1 by mouth twice daily METOPROLOL TARTRATE 97922644857 Active Kathie Juan RPT,RMA Acti ve BACTRIM DS 800-160 MG TAB 1 tab by mouth twice daily 2 BACTRIM DS 800-160 MG TAB 122124 TRIMETHOPRIM-SULFAMETHOXAZOLE Inac tive PROVIGIL 100 MG TABS Take one by mouth daily 4 PROVIGIL 100 MG TABS 874896 MODAFINIL Inactive FUROSEMIDE 40 MG TABS 1 by mouth daily FU ROSEMIDE 40 MG TABS 660789 FUROSEMIDE Inactive KLOR-CON 20 MEQ PACK Take one by mouth daily 8 KLOR-CON 20 MEQ PACK 639142 POTASSIUM CHLORIDE Inactive LISINOPRIL 5 MG TABS 1 by mouth every day LISINOPRIL 5 MG TABS 920219 LISINOPRIL Inactive COLCRYS 0.6 MG TABS 1 po q 6 hours prn gout pain 03/02 COLCRYS 0.6 MG TABS 689764 COLCHICINE Inactive JANUVIA 100 MG TABS 1/2 by mouth every day JANUVI A 100 MG TABS SITAGLIPTIN PHOSPHATE Inactive SIMVASTATIN 20 MG TABS 1 tab daily at bedtime SIMVASTATIN 20 MG TABS 626784 SIMVASTATIN Inactive COUMADIN 6 MG TABS 1 by mouth every other day COUMADIN 6 MG TABS 614281 WARFARIN SODIUM Inactive COUMADIN 5 MG TABS 1 by mouth every other day COUMADIN 5 MG TABS 104497 WARFARIN SODIUM Inactive LISINOPRIL 20 MG TABS 1 tab po at HS KOKI NOPRIL 20 MG TABS 369497 LISINOPRIL Inactive LISINOPRIL-HYDROCHLOROTHIAZIDE 20-12.5 MG TABS 1 tab by mouth da rocky LISINOPRIL-HYDROCHLOROTHIAZIDE 20-12.5 MG TABS 668161 LISINOPRIL-HYDROCHLOROTHIAZIDE Inactive POLYTRIM 96850-7.1 UNIT/ML-% SOLN 1 drop in affected e ye every 3 hours while awake x 7 days POLYTRIM 45873-3.1 UNIT/ML-% SOLN 26520 7 POLYMYXIN B-TRIMETHOPRIM Inactive COUMADIN 4 MG TABS 1 tablet daily COUMADIN 4 MG TABS 805055 WARFARIN SODIUM Inactive CLONIDINE HCL 0.1 MG TABS 1 po bid 7 days, then 1/2 tab po b id 7 days CLONIDINE HCL 0.1 MG TABS 752612 CLONIDINE HCL I nactive ALLOPURINOL 300 MG TABS Take 1 tablet by mouth daily 2 ALLOPURINOL 300 MG TABS 943328 ALLOPURINOL Inactive MECLIZINE HCL 25 MG TAB 1 po tid 3 days, then 1/2 tab tid 3 days MECLIZINE HCL 25 MG TAB 458068 MECLIZINE HCL Inactive LOVENOX 100 MG/ML SC SOLN One injection twice a day 09/15/15 LOVENOX 100 MG/ML SC SOLN 156672 ENOXAPARIN SODIUM Inactive Vital Signs Date Name [...] Ag - Chemistry sodium, serum 141 mmol/L 809-697 8769/07/06 potassium, serum 4.4 mmol/L 3.5-5.2 chloride, serum [...] - Chem istry sodium, serum 136 mmol/L 161-098 4635/01/14 carbon dioxide, venous blood 25.4 mmol/L 21.0-32 [...] 7.0 % 4.3-6.0 cholesterol, serum 120 mg/dL 294-411 3706/07/06 triglyceride, serum, fasting 186 mg/dL 30-200 HDL [...] 1.0-3.5 Encounters Code Encounter Date Provider Facility CPT-48670 Level 3 Est. Patient 09:34:30 SEWER INSPECTOR Mitch W L ee DO [facility] CPT-74035 Level 3 Est. Patient 09:37:15 CDT Mitch W L ee DO [facility] CPT-97359 Level 3 Est. Patient 17:01:00 SEWER INSPECTOR Mitch W L ee DO [facility] CPT-47898 Level 3 Est. Patient 13:53:19 SEWER INSPECTOR Mitch W L janelle [facility] CPT-73976 Level 3 Est. Patient 19:19:37 SEWER INSPECTOR Mitch W L ee [facility] CPT-04621 Level 3 Est. Patient 13:25:53 SEWER INSPECTOR Tavo toure MD [facility] [place]-75471 Level 3 Est. Patient 18:17:28 CDT Mitch W L ee [facility] CPT-20629 Level 3 Est. Patient 15:22:57 CDT Mitch W L ee [facility] CPT-02283 Level 3 Est. Patient 18:21:50 CDT Mitch W L janelle [facility] CPT-27573 Level 3 Est. Patient 18:20:38 CDT Mitch W L ee [facility] CPT-96668 Level 3 Est. Patient 15:37:55 CDT Mitch W L janelle [facility] CPT-60738 Level 2 Est. Patient 15:54:44 CDT Carmine benton MD [facility]-19236 Level 3 Est. Patient 21:46:01 SEWER INSPECTOR Mitch W L janelle [facility] CPT-80399 Level 3 Est. Patient 22:15:50 CDT Mitch W L ee [facility] CPT-08630 Level 3 Est. Patient 10:48:15 CDT Mitch W L ee [facility] CPT-66640 Level 3 Est. Patient 23:20:57 CDT Tavo toure MD [facility] CPT-20162 Level 3 Est. Patient 16:26:13 CDT Mitch luis DO [facility] Procedures Code Procedure Name Date Entry Date Standard Desc ription CPT-62162 Venipuncture Draw Fee 09:38:56 SEWER INSPECTOR CPT-21941 No Charge Offi Visit 21:36:07 CDT 1 CPT-26511 Venipuncture Draw Fee 10:13:28 SEWER INSPECTOR CPT-81550 Venipuncture Draw Fee 08:31:11 CDT CPT-59964 Aspir/Inject Med Joint 18:17:28 CDT CPT-80620 Venipuncture Draw Fee 10:13:30 CDT CPT-19726 Venipuncture Draw Fee 08:31:43 SEWER INSPECTOR CPT-JTINJ Joint Injection 18:34:50 CDT CPT-81416 Knee 3V 12:25:09 CDT CPT-61432 Venipuncture Draw Fee 12:15:57 CDT CPT-060 Medical Surveillance Exam 21:31:43 CDT 2011 CPT-38790 Venipuncture Draw Fee 08:32:05 SEWER INSPECTOR CPT-OV Office Visit 18:19:06 CDT
--- OUTSIDE RECORDS SUMMARY | 2020-01-18 12:52 | XMS REPORT | Clinical Summary ---
Author Author Admin, Mitch Leon Organization [facility] Address Unknown Phone Unavailable Allergies, Adverse Reactions, [...] of vessel, rampart or graft EDEMA 782.3 Active Mitch Urbina [...] 1 tablet by mouth daily AMLODIPINE BESYLATE 01394012341 Active Mitch Urbina DO Active MECLIZINE HCL 25 MG TAB 1 po tid 3 days, then 1/2 tab tid 3 days MECLIZINE HCL 60918666673 No Longer Active Corey SEGURA Active ALLOPURINOL 300 MG TABS Take 1 tablet by mouth daily 2 ALLOPURINOL 42273013985 No Longer Active Corey SEGURA Activ e CLONIDINE HCL 0.1 MG TABS 1 po bid 7 days, then 1/2 tab po b id 7 days CLONIDINE HCL 73054336495 No Longer Active Corey SEGURA Active COUMADIN 5 MG TABS 1 tab PO daily WARFARIN SODIUM 29513252603 Active Mitch Urbina DO Active COUMADIN 4 MG TABS 1 tablet daily WARFARIN SODI UM 97430360401 No Longer Active Corey SEGURA Active POLYTRIM 77612-0.1 UNIT/ML-% SOLN 1 drop in affected e ye every 3 hours while awake x 7 days POLYMYXIN B-TRIMETHOPRIM 79883212071 N o Longer Active Corey SEGURA Active LOSARTAN POTASSIUM-HCTZ 100-12.5 MG TABS 1 by mouth da rocky for high blood pressure LOSARTAN POTASSIUM-HCTZ 97618035592 Active Stephy Urbina DO Active LISINOPRIL-HYDROCHLOROTHIAZIDE 20-12.5 MG TABS 1 tab by mouth da rocky LISINOPRIL-HYDROCHLOROTHIAZIDE 43584738141 No Longer Active Mitch luis DO Active LISINOPRIL 20 MG TABS 1 tab po at HS LISINOPRIL 65902607256 No Longer Active Mitch Urbina DO Active COUMADIN 5 MG TABS 1 by mouth every other day WARFARIN SODIUM 40900256417 No Longer Active Mitch Urbina DO Active COUMADIN 6 MG TABS 1 by mouth every other day WARFARIN SODIUM 88519056745 No Longer Active Mitch Urbina DO Active COLCRYS 0.6 MG TABS 1 tab qid prn gout COLCHICINE 54548037561 Active Corey SEGURA Active SIMVASTATIN 40 MG TABS 1 tab daily at bedtime S IMVASTATIN 35588614704 Active Mitch Urbina DO Active SIMVASTATIN 20 MG TABS 1 tab daily at bedtime S IMVASTATIN 60911621074 No Longer Active Mitch Urbina DO Active LOVENOX 100 MG/ML SC SOLN One injection twice a day 09/15/15 ENOXAPARIN SODIUM 47947870831 No Longer Active Carmine D [place] MD A ctive JANUVIA 50 MG TABS Take one by mouth daily DIEGO GLIPTIN PHOSPHATE 13571230171 Active Mitch Urbina DO Active JANUVIA 100 MG TABS 1/2 by mouth every day DIEGO GLIPTIN PHOSPHATE 61971954998 No Longer Active Bijalseth Segal RN Active METFORMIN HCL 500 MG TABS 2 by mouth twice daily METFORMIN HCL 84392229338 Active Corey Arias PA Active GLIMEPIRIDE 4 MG TABS 1 tab po bid GLIMEPIRIDE 097181 87082 Active Mitch Urbina DO Active COLCRYS 0.6 MG TABS 1 po q 6 hours prn gout pain 03/02 COLCHICINE 38799374766 No Longer Active Camila Reese Active LISINOPRIL 5 MG TABS 1 by mouth every day LISIN OPRIL 52970628433 No Longer Active Nguyen Perez Active KLOR-CON 20 MEQ PACK Take one by mouth daily 8 POTASSIUM CHLORIDE 96873959017 No Longer Active Nguyen Perez Active FUROSEMIDE 40 MG TABS 1 by mouth daily FUROSEMI DE 18585345948 No Longer Active Nguyen Perez Active PROVIGIL 200 MG TABS 1/2 tab po q day MODAFINIL 74401 793792 Active Mitch Urbina DO Active PROVIGIL 100 MG TABS Take one by mouth daily MO DAFINIL 76365937752 No Longer Active Mitch Urbina DO Active BACTRIM DS 800-160 MG TAB 1 tab by mouth twice daily 2 TRIMETHOPRIM-SULFAMETHOXAZOLE 81797398085 No Longer Active Renan Hays MD Active FAMOTIDINE 20 MG TABS by mouth twice a day FAMOTI DINE 72421241531 Active Mitch Urbina DO Active ADULT ASPIRIN LOW STRENGTH 81 MG TBDP 1 by mouth every daily ASPIRIN 24292086700 Active Mitch Urbina DO Active METOPROLOL TARTRATE 50 MG TABS 1 by mouth twice daily METOPROLOL TARTRATE 51391583615 Active Curly Coker MD Active BACTRIM DS 800-160 MG TAB 1 tab by mouth twice daily 2 BACTRIM DS 800-160 MG TAB TRIMETHOPRIM-SULFAMETHOXAZOLE Inac tive PROVIGIL 100 MG TABS Take one by mouth daily 4 PROVIGIL 100 MG TABS 490892 MODAFINIL Inactive FUROSEMIDE 40 MG TABS 1 by mouth daily FU ROSEMIDE 40 MG TABS 178059 FUROSEMIDE Inactive KLOR-CON 20 MEQ PACK Take one by mouth daily 8 KLOR-CON 20 MEQ PACK 960654 POTASSIUM CHLORIDE Inactive LISINOPRIL 5 MG TABS 1 by mouth every day LISINOPRIL 5 MG TABS 213492 LISINOPRIL Inactive COLCRYS 0.6 MG TABS 1 po q 6 hours prn gout pain 03/02 COLCRYS 0.6 MG TABS 776508 COLCHICINE Inactive JANUVIA 100 MG TABS 1/2 by mouth every day JANUVI A 100 MG TABS SITAGLIPTIN PHOSPHATE Inactive SIMVASTATIN 20 MG TABS 1 tab daily at bedtime SIMVASTATIN 20 MG TABS 102350 SIMVASTATIN Inactive COUMADIN 6 MG TABS 1 by mouth every other day COUMADIN 6 MG TABS 679054 WARFARIN SODIUM Inactive COUMADIN 5 MG TABS 1 by mouth every other day COUMADIN 5 MG TABS 130958 WARFARIN SODIUM Inactive LISINOPRIL 20 MG TABS 1 tab po at HS KOKI NOPRIL 20 MG TABS 878157 LISINOPRIL Inactive LISINOPRIL-HYDROCHLOROTHIAZIDE 20-12.5 MG TABS 1 tab by mouth da rocky LISINOPRIL-HYDROCHLOROTHIAZIDE 20-12.5 MG TABS 974863 LISINOPRIL-HYDROCHLOROTHIAZIDE Inactive POLYTRIM 86354-6.1 UNIT/ML-% SOLN 1 drop in affected e ye every 3 hours while awake x 7 days POLYTRIM 39369-5.1 UNIT/ML-% SOLN 07996 7 POLYMYXIN B-TRIMETHOPRIM Inactive COUMADIN 4 MG TABS 1 tablet daily COUMADIN 4 MG TABS 848097 WARFARIN SODIUM Inactive CLONIDINE HCL 0.1 MG TABS 1 po bid 7 days, then 1/2 tab po b id 7 days CLONIDINE HCL 0.1 MG TABS 880220 CLONIDINE HCL I nactive ALLOPURINOL 300 MG TABS Take 1 tablet by mouth daily 2 ALLOPURINOL 300 MG TABS 417859 ALLOPURINOL Inactive MECLIZINE HCL 25 MG TAB 1 po tid 3 days, then 1/2 tab tid 3 days MECLIZINE HCL 25 MG TAB 763434 MECLIZINE HCL Inactive LOVENOX 100 MG/ML SC SOLN One injection twice a day 09/15/15 LOVENOX 100 MG/ML SC SOLN 689797 ENOXAPARIN SODIUM Inactive Vital Signs Date Name [...] 10.3 mg/dL 2.6-7.2 sodium, serum 136 mmol/L 533-092 1791/07/25 potassium, serum 4.6 mmol/L 3.5-5.2 chloride, serum [...] 5.02 10^6/MM^3 10*6/mm3 4.69-6.1 3 mean corpuscular hemoglobin, RBC 25.6 pg 27. 0-31.2 mean corpuscular hemoglobin concentration, RBC 32.0 G/DL % 31.8-35.4 red blood cell distribution width 18.3 % 11 .6-14.8 platelet count 277 10^3/MM^3 10*3/mm3 186-206 4700/07/25 leukocyte count, blood 6.6 10^3/MM^3 10*3/mm3 4.6-10.2 Lab Report: CBC, Comp. Metabolic Panel, HGBA1C, MICROALBUMIN, Uric Acid - Lab microalbumin, urine 30 0-19 Lab Report: Comp. Metabolic Panel, HGBA1 C, Lipid Panel - Chemistry sodium, serum 137 mmol/L 684-088 8240/11/14 potassium, serum 4.4 mmol/L 3.5-5.2 chloride, serum [...] 8.0 % 4.3-6.0 cholesterol, serum 130 mg/dL 040-968 2783/11/14 triglyceride, serum, fasting 288 mg/dL 30-200 HDL cholesterol, serum 33 mg/dL 32-96 LDL cholesterol, serum 39 mg/dL 0-130 Lab Report: Comp. Metabolic Panel, HGBA1 C, Lipid Panel, Prothrombin Time - Chemistry sodium, serum 136 mmol/L 084-362 5978/12/02 potassium, serum 4.4 mmol/L 3.5-5.2 chloride, serum [...] 7.6 % 4.3-6.0 cholesterol, serum 117 mg/dL 962-528 6483/12/02 triglyceride, serum, fasting 226 mg/dL 30-200 HDL [...] 1.0-3.5 Encounters Code Encounter Date Provider Facility CPT-32738 Level 3 Est. Patient 09:37:15 CDT Mitch luis [facility] CPT-48673 Level 3 Est. Patient 17:01:00 POULTRY CULLER Mitch luis [facility] CPT-52231 Level 3 Est. Patient 13:53:19 POULTRY CULLER Mitch luis [facility] CPT-94035 Level 3 Est. Patient 19:19:37 POULTRY CULLER Mitch luis [facility] CPT-70605 Level 3 Est. Patient 13:25:53 POULTRY CULLER Tavo toure MD [facility] CPT-65763 Level 3 Est. Patient 18:17:28 CDT Mitch luis [facility] CPT-60388 Level 3 Est. Patient 15:22:57 CDT Mitch luis [facility] CPT-54004 Level 3 Est. Patient 18:21:50 CDT Mitch luis [facility] CPT-16797 Level 3 Est. Patient 18:20:38 CDT Mitch luis [facility] CPT-58042 Level 3 Est. Patient 15:37:55 CDT Mitch luis [facility] CPT-46034 Level 2 Est. Patient 15:54:44 CDT Carmine benton MD [facility]-17756 Level 3 Est. Patient 21:46:01 POULTRY CULLER Mitch luis [facility] CPT-76915 Level 3 Est. Patient 22:15:50 CDT Mitch luis [facility] CPT-67475 Level 3 Est. Patient 10:48:15 CDT Mitch luis [facility] CPT-12129 Level 3 Est. Patient 23:20:57 CDT Tavo toure MD [facility] CPT-24151 Level 3 Est. Patient 16:26:13 CDT Mitch luis [facility] Procedures Code Procedure Name Date Entry Date Standard Desc ription CPT-31261 Venipuncture Draw Fee 10:13:28 POULTRY CULLER CPT-02016 Venipuncture Draw Fee 08:31:11 CDT CPT-87978 Aspir/Inject Med Joint 18:17:28 CDT CPT-22985 Venipuncture Draw Fee 10:13:30 CDT CPT-90604 Venipuncture Draw Fee 08:31:43 POULTRY CULLER CPT-JTINJ Joint Injection 18:34:50 CDT CPT-80516 Knee 3V 12:25:09 CDT CPT-57902 Venipuncture Draw Fee 12:15:57 CDT CPT-060 Medical Surveillance Exam 21:31:43 CDT 2011 CPT-30022 Venipuncture Draw Fee 08:32:05 POULTRY CULLER CPT-OV Office Visit 18:19:06 CDT
--- OUTSIDE RECORDS SUMMARY | 2020-01-18 12:52 | XMS REPORT | Clinical Summary ---
Author Author Admin, Mitch Leon Organization [facility] Address Unknown Phone Unavailable Allergies, Adverse Reactions, [...] of vessel, [place] or graft EDEMA 782.3 Resolved Mitch Urbina [...] by mouth twice a day 2017 FAMOTIDINE 44538420287 No Longer Active Mitch Urbina DO Active COLCRYS 0.6 MG ORAL TABLET 1 tab qid prn gout C OLCHICINE 09953498783 No Longer Active Mitch Urbina DO Active GLIMEPIRIDE 2 MG ORAL TABLET 1 po BID GLIMEPIRID E 96178171896 Active Renee Oconnor DOG BEAUTICIAN Active KEFLEX 500 MG ORAL CAPSULE 1 po qid CEPHALEXI N 86471584002 No Longer Active Mitch Urbina DO Active LOSARTAN POTASSIUM 100 MG ORAL TABLET 1 pill by mouth daily, for blood pressure LOSARTAN POTASSIUM 90198562333 Active Mitch Urbina DO Active AMLODIPINE BESYLATE 5 MG ORAL TABLET 1 tablet by mouth daily 201 01/20/04 AMLODIPINE BESYLATE 58507254071 No Longer Active Joe fulton APRN Active MITIGARE 0.6 MG ORAL CAPSULE 2 capsules at onset of go ut pain, then take one capsule at 1 hour if symptoms persist. COLCHICINE 59 578533538 Active Mitch Urbina DO Active COUMADIN 1 MG ORAL TABLET 2 tabs orally daily with the 5mg tab to equal 7mg daily WARFARIN SODIUM 81155338284 Active Ana Wallace Active INVOKANA 100 MG ORAL TABLET 1 tablet orally daily CANAGLIFLOZIN 83986840662 Active Mitch Urbina DO Active MINOXIDIL 2.5 MG ORAL TABLET 1 tablet daily for high blood press ure MINOXIDIL 21677016198 Active Mitch Urbina DO Active MECLIZINE HCL 25 MG ORAL TABLET 1 po tid 3 days, then 1/2 ta b tid 3 days MECLIZINE HCL 03099249864 No Longer Active Corey SEGURA Active ALLOPURINOL 300 MG ORAL TABLET Take 1 tablet by mouth daily 2012 ALLOPURINOL 32528912897 No Longer Active Corey SEGURA Active CLONIDINE HCL 0.1 MG ORAL TABLET 1 po bid 7 days, then 1/2 t ab po bid 7 days CLONIDINE HCL 35326222303 No Longer Active Corey SEGURA Active COUMADIN 5 MG ORAL TABLET 1 tab PO daily WARFAR IN SODIUM 89478835831 Active Mitch Urbina DO Active COUMADIN 4 MG ORAL TABLET 1 tablet daily WARFAR IN SODIUM 60384802041 No Longer Active Corey SEGURA Active POLYTRIM 25498-3.1 UNIT/ML-% OPHTHALMIC SOLUTION 1 rui p in affected eye every 3 hours while awake x 7 days POLYMYXIN B-TRIMETHOP RIM 84617999315 No Longer Active Corey SEGURA Active LOSARTAN POTASSIUM-HCTZ 100-12.5 MG ORAL TABLET 1 by m outh daily for high blood pressure LOSARTAN POTASSIUM-HCTZ 80502533888 No Longer A ctive Mitch Urbina DO Active LISINOPRIL-HYDROCHLOROTHIAZIDE 20-12.5 MG ORAL TABLET 1 tab by m outh daily LISINOPRIL-HYDROCHLOROTHIAZIDE 71688366901 No Longer Active Mitch Urbina DO Active LISINOPRIL 20 MG ORAL TABLET 1 tab po at HS LIS INOPRIL 74542858785 No Longer Active Mitch Urbina DO Active COUMADIN 5 MG ORAL TABLET 1 by mouth every other day 2 WARFARIN SODIUM 98466514065 No Longer Active Mitch Urbina DO Active COUMADIN 6 MG ORAL TABLET 1 by mouth every other day 2 WARFARIN SODIUM 48739400297 No Longer Active Mitch Urbina DO Active SIMVASTATIN 40 MG ORAL TABLET 1 tab daily at bedtime SIMVASTATIN 27506278602 Active Mitch Urbina DO Active SIMVASTATIN 20 MG ORAL TABLET 1 tab daily at bedtime 2 SIMVASTATIN 94519167439 No Longer Active Mtich Urbina DO Active LOVENOX 100 MG/ML SUBCUTANEOUS SOLUTION One injection twice a da y ENOXAPARIN SODIUM 55408315424 No Longer Active Carmine Yusuf MD Active JANUVIA 50 MG ORAL TABLET Take one by mouth daily SITAGLIPTIN PHOSPHATE 79193358782 Active Mitch W [place] DO Active JANUVIA 100 MG ORAL TABLET 1/2 by mouth every day 2011 SITAGLIPTIN PHOSPHATE 67106154940 No Longer Active Bijal Segal RN Acti ve METFORMIN HCL 500 MG ORAL TABLET 2 by mouth twice daily METFORMIN HCL 88596100219 Active Mitch Urbina DO Active COLCRYS 0.6 MG ORAL TABLET 1 po q 6 hours prn gout pain COLCHICINE 98107323335 No Longer Active Camila Reese Active LISINOPRIL 5 MG ORAL TABLET 1 by mouth every day 11/17 LISINOPRIL 14110185731 No Longer Active Nguyen Perez Active KLOR-CON 20 MEQ ORAL PACKET Take one by mouth daily 09/10/08 POTASSIUM CHLORIDE 97965087652 No Longer Active Nguyen Perez Active FUROSEMIDE 40 MG ORAL TABLET 1 by mouth daily F UROSEMIDE 42412225798 No Longer Active Nguyen Perez Active PROVIGIL 200 MG ORAL TABLET 1/2 tab po q day MODA FINIL 76539060832 Active Renee Elvin BURNETTN Active PROVIGIL 100 MG ORAL TABLET Take one by mouth daily 08/20/04 MODAFINIL 90901402127 No Longer Active Mitch Urbina DO Active BACTRIM DS 800-160 MG ORAL TABLET 1 tab by mouth twice daily 201 10/19/09 TRIMETHOPRIM-SULFAMETHOXAZOLE 62673790166 No Longer Active Elian Hays MD Active ADULT ASPIRIN LOW STRENGTH 81 MG ORAL TABLET DISINTEGR ATING 1 by mouth every daily ASPIRIN 37749620278 Active Mitch Urbina DO Ac tive METOPROLOL TARTRATE 50 MG ORAL TABLET 1 by mouth twice daily METOPROLOL TARTRATE 52236558952 Active Mitch Urbina DO Active BACTRIM DS 800-160 MG ORAL TABLET 1 tab by mouth twice daily 201 10/19/09 BACTRIM DS 800-160 MG ORAL TABLET 333698 TRIMETHOPRIM-SULFAMETHOXAZOLE Inactive PROVIGIL 100 MG ORAL TABLET Take one by mouth daily 20 08/20/04 PROVIGIL 100 MG ORAL TABLET 386105 MODAFINIL Inactive FUROSEMIDE 40 MG ORAL TABLET 1 by mouth daily FUROSEMIDE 40 MG ORAL TABLET 468129 FUROSEMIDE Inactive KLOR-CON 20 MEQ ORAL PACKET Take one by mouth daily 09/10/08 KLOR- CON 20 MEQ ORAL PACKET 0884118 POTASSIUM CHLORIDE Inactive LISINOPRIL 5 MG ORAL TABLET 1 by mouth every day 11/17 LISINOPRIL 5 MG ORAL TABLET 596602 LISINOPRIL Inactive COLCRYS 0.6 MG ORAL TABLET 1 po q 6 hours prn gout pain COLCRYS 0.6 MG ORAL TABLET 100463 COLCHICINE Inactive JANUVIA 100 MG ORAL TABLET 1/2 by mouth every day 2011 JANUVIA 100 MG ORAL TABLET SITAGLIPTIN PHOSPHATE Inactive SIMVASTATIN 20 MG ORAL TABLET 1 tab daily at bedtime 2 SIMVASTATIN 20 MG ORAL TABLET 691785 SIMVASTATIN Inactive COUMADIN 6 MG ORAL TABLET 1 by mouth every other day COUMADIN 6 MG ORAL TABLET 391050 WARFARIN SODIUM Inactive COUMADIN 5 MG ORAL TABLET 1 by mouth every other day 2 COUMADIN 5 MG ORAL TABLET 106483 WARFARIN SODIUM Inactive LISINOPRIL 20 MG ORAL TABLET 1 tab po at HS LISINOPRIL 20 MG ORAL TABLET 131717 LISINOPRIL Inactive LISINOPRIL-HYDROCHLOROTHIAZIDE 20-12.5 MG ORAL TABLET 1 tab by m outh daily LISINOPRIL-HYDROCHLOROTHIAZIDE 20-12.5 MG ORAL TABLET 612149 LISINOPRIL-HYDROCHLOROTHIAZIDE Inactive POLYTRIM 38273-7.1 UNIT/ML-% OPHTHALMIC SOLUTION 1 rui p in affected eye every 3 hours while awake x 7 days POLYTRIM 1000 0-0.1 UNIT/ML-% OPHTHALMIC SOLUTION 055894 POLYMYXIN B-TRIMETHOPRIM Inactive COUMADIN 4 MG ORAL TABLET 1 tablet daily COUMADIN 4 MG ORAL TABLET 877477 WARFARIN SODIUM Inactive CLONIDINE HCL 0.1 MG ORAL TABLET 1 po bid 7 days, then 1/2 t ab po bid 7 days CLONIDINE HCL 0.1 MG ORAL TABLET 212251 CLONIDIN E HCL Inactive ALLOPURINOL 300 MG ORAL TABLET Take 1 tablet by mouth daily 2012 ALLOPURINOL 300 MG ORAL TABLET 495799 ALLOPURINOL I nactive MECLIZINE HCL 25 MG ORAL TABLET 1 po tid 3 days, then 1/2 ta b tid 3 days MECLIZINE HCL 25 MG ORAL TABLET 673649 MECLIZINE HCL Inactive AMLODIPINE BESYLATE 5 MG ORAL TABLET 1 tablet by mouth daily 201 01/20/04 AMLODIPINE BESYLATE 5 MG ORAL TABLET 274704 AMLODIPINE BESYLATE Inactive KEFLEX 500 MG ORAL CAPSULE 1 po qid K EFLEX 500 MG ORAL CAPSULE 260482 CEPHALEXIN Inactive COLCRYS 0.6 MG ORAL TABLET 1 tab qid prn gout COLCRYS 0.6 MG ORAL TABLET 220468 COLCHICINE Inactive FAMOTIDINE 20 MG ORAL TABLET by mouth twice a day 2017 FAMOTIDINE 20 MG ORAL TABLET 139189 FAMOTIDINE Inactive LOVENOX 100 MG/ML SUBCUTANEOUS SOLUTION One injection twice a da y LOVENOX 100 MG/ML SUBCUTANEOUS SOLUTION 357529 ENOXAPAR IN SODIUM Inactive Vital Signs Date [...] - Chem istry sodium, serum 139 mmol/L 161-854 8419/07/17 potassium, serum 4.2 mmol/L 3.5-5.2 chloride, serum 102 mmol/L 98-107 carbon dioxide, venous blood 28.9 mmol/L 21.0-32 .0 blood glucose 211 mg/dL 65-110 calcium, serum 10.6 mg/dL 8.5-10.1 urea nitrogen, blood 29 mg/dL 7-18 creatinine, serum 1.24 mg/dL 0.60-1.30 sodium, serum 141 mmol/L 645-977 7464/08/07 potassium, serum 4.5 mmol/L 3.5-5.2 chloride, serum [...] ... - Chemistry sodium, serum 144 mmol/L 268-698 4227/06/12 carbon dioxide, venous blood 26.6 mmol/L 21.0-32 [...] HGBA1C - Chemistry cholesterol, serum 136 mg/dL 875-402 9367/12/06 triglyceride, serum, fasting 247 mg/dL 30-200 HDL cholesterol, serum 41 mg/dL 32-60 LDL cholesterol, serum 46 mg/dL 0-130 aspartate aminotransferase (SGOT), serum 22 U/L 15-37 alanine aminotransferase (SGPT), serum 30 U/L 12-78 bilirubin, serum, total 0.80 mg/dL 0.00-1.00 hemoglobin A1C, blood, as % of total hemoglobin 6.4 % 4.3-6.0 Encounters Code Encounter Date Provider Facility CPT-51075 Level 3 Est. Patient 18:25:53 CDT Mitch luis [facility] CPT-67928 Level 3 Est. Patient 19:43:34 CDT Mitch Castellano [facility] CPT-58615 Level 4 Est. Patient 09:30:18 CDT Mitch luis [facility] CPT-82379 Level 3 Est. Patient 15:10:14 CDT Joe kamara [facility] CPT-36834 Level 3 Est. Patient 15:03:46 CDT Joe kamara [facility] CPT-98929 Level 3 Est. Patient 14:21:06 CDT Mitch luis [facility] CPT-67145 Level 3 Est. Patient 14:52:06 [facility] Patient 09:34:30 VASCULAR TECH Mitch Ambrose L janelle [facility]-85216 Level 3 Est. Patient 09:37:15 CDT Mitch W L janelle [facility]-34940 Level 3 Est. Patient 17:01:00 VASCULAR TECH Mitch W L janelle [facility] CPT-92870 Level 3 Est. Patient 13:53:19 VASCULAR TECH Mitch W L janelle [facility] CPT-19881 Level 3 Est. Patient 19:19:37 VASCULAR TECH Mitch W L janelle [facility] CPT-26434 Level 3 Est. Patient 13:25:53 VASCULAR TECH Tavo toure MD [facility]-82990 Level 3 Est. Patient 18:17:28 CDT Mitch Ambrose L janelle [facility] CPT-77187 Level 3 Est. Patient 15:22:57 CDT Mitch W L janelle [facility]-36191 Level 3 Est. Patient 18:21:50 CDT Mitch W L janelle [facility] CPT-35434 Level 3 Est. Patient 18:20:38 CDT Mitch Arnol L janelle [facility]-20937 Level 3 Est. Patient 15:37:55 CDT Mitch W L janelle [facility] CPT-68432 Level 2 Est. Patient 15:54:44 CDT Carmine betnon MD [facility]-59865 Level 3 Est. Patient 21:46:01 VASCULAR TECH Mitch W L janelle [facility] CPT-62557 Level 3 Est. Patient 22:15:50 CDT Mitch W L ee [facility] CPT-84352 Level 3 Est. Patient 10:48:15 CDT Mitch luis [facility] CPT-66161 Level 3 Est. Patient 23:20:57 CDT Tavo toure MD [facility] CPT-24053 Level 3 Est. Patient 16:26:13 CDT Mitch luis [facility] Procedures Code Procedure Name Date Entry Date Standard Desc ription CPT-JTINJ Asp/Joint Injection 18:47:02 CDT CPT-40298 Venipuncture Draw Fee 09:26:17 CDT CPT-43756 PT/INR - LAB USE ONLY 13:32:49 VASCULAR TECH CPT-31524 Venipuncture Draw Fee 13:32:49 VASCULAR TECH CPT-93569 PT/INR - LAB USE ONLY 10:34:49 VASCULAR TECH CPT-15148 Venipuncture Draw Fee 10:34:48 VASCULAR TECH CPT-20621 PT/INR - LAB USE ONLY 09:22:03 VASCULAR TECH CPT-01025 Venipuncture Draw Fee 09:22:02 VASCULAR TECH CPT-98601 Hemoccult IFOBT - LAB USE ONLY 10:27:22 CDT CPT-17377 Venipuncture Draw Fee 08:27:08 CDT CPT-16387 Liver Profile - LAB USE ONLY 08:27:07 CDT 2 CPT-39746 Microalbumin - LAB USE ONLY 08:27:07 CDT 20 25/05/09 CPT-64533 PT/INR - LAB USE ONLY 08:27:07 CDT CPT-90257 HGBA1C - LAB USE ONLY 08:27:07 CDT CPT-38931 CBC - LAB USE ONLY 08:27:07 CDT CPT-05160 Venipuncture Draw Fee 11:09:14 CDT CPT-09438 Venipuncture Draw Fee 08:32:21 VASCULAR TECH CPT-90093 Venipuncture Draw Fee 09:38:56 VASCULAR TECH CPT-43821 No Charge Offi Visit 21:36:07 CDT 1 CPT-55720 Venipuncture Draw Fee 10:13:28 VASCULAR TECH CPT-92287 Venipuncture Draw Fee 08:31:11 CDT CPT-11629 Aspir/Inject Med Joint 18:17:28 CDT CPT-44191 Venipuncture Draw Fee 10:13:30 CDT CPT-59357 Venipuncture Draw Fee 08:31:43 VASCULAR TECH CPT-JTINJ Joint Injection 18:34:50 CDT CPT-37911 Knee 3V 12:25:09 CDT CPT-23289 Venipuncture Draw Fee 12:15:57 CDT CPT-060 Medical Surveillance Exam 21:31:43 CDT 2011 CPT-47709 Venipuncture Draw Fee 08:32:05 VASCULAR TECH CPT-OV Office Visit 18:19:06 CDT
--- OUTSIDE RECORDS SUMMARY | 2020-01-18 12:53 | XMS REPORT | Clinical Summary ---
Author Author Admin, Mitch Leon Organization [facility] [employer] Address Unknown Phone Unavailable Allergies, Adverse Reactions, [...] Coronary atherosclerosis of unspecified type of vessel, [place] or graft EDEMA 782.3 Resolved Mitch [...] bursitis UNSPECIFIED ANEMIA 285.9 Resolved Mitch W Carliots DO Anemia, unspecified Malaise and fatigue 780.79 Resolved Mitch Arnol Carlitos D O Other malaise and fatigue Cough, chronic 786.2 Resolved Mitch Arnol Carlitos DO Cough Sebaceous cyst, infected 706.2 Resolved Mitch W Carlitos DO Sebaceous cyst Cellulitis 682.9 Resolved Mitch Arnol Carlitos DO Cellulitis and abscess of unspecified sites 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 aCrmine benton MD Benign neoplasm of colon Coumadin [...] ORAL TABLET 1 po BID GLIMEPIRID E 31281066636 Active Ana Wallace Active KEFLEX 500 MG ORAL CAPSULE 1 po qid CEPHALEXI N 81750246574 No Longer Active Mitch Urbina DO Active LOSARTAN POTASSIUM 100 MG ORAL TABLET 1 pill by mouth daily, for blood pressure LOSARTAN POTASSIUM 57524590283 Active Ana Wallace Active AMLODIPINE BESYLATE 5 MG ORAL TABLET 1 tablet by mouth daily 201 01/20/04 AMLODIPINE BESYLATE 11516497195 No Longer Active Devonjustincarlitos fulton ANNIE Active MITIGARE 0.6 MG ORAL CAPSULE 2 capsules at onset of go ut pain, then take one capsule at 1 hour if symptoms persist. COLCHICINE 59 387692239 Active Mitch Urbina DO Active COUMADIN 1 MG ORAL TABLET 2 tabs orally daily with the 5mg tab to equal 7mg daily WARFARIN SODIUM 24891646202 Active Ana Wallace Active COLCRYS 0.6 MG ORAL TABLET 1 tab qid prn gout C OLCHICINE 92507739496 Active Norma Cazares Active INVOKANA 100 MG ORAL TABLET 1 tablet orally daily CANAGLIFLOZIN 77205056033 Active Mitch Urbina DO Active MINOXIDIL 2.5 MG ORAL TABLET 1 tablet daily for high blood press ure MINOXIDIL 82593391945 Active Mitch Urbina DO Active MECLIZINE HCL 25 MG ORAL TABLET 1 po tid 3 days, then 1/2 ta b tid 3 days MECLIZINE HCL 68938147791 No Longer Active Corey SEGURA Active ALLOPURINOL 300 MG ORAL TABLET Take 1 tablet by mouth daily 2012 ALLOPURINOL 67167770705 No Longer Active Corey SEGURA Active CLONIDINE HCL 0.1 MG ORAL TABLET 1 po bid 7 days, then 1/2 t ab po bid 7 days CLONIDINE HCL 71262017256 No Longer Active Corey SEGURA Active COUMADIN 5 MG ORAL TABLET 1 tab PO daily WARFAR IN SODIUM 25778977375 Active Mitch Urbina DO Active COUMADIN 4 MG ORAL TABLET 1 tablet daily WARFAR IN SODIUM 77814486827 No Longer Active Corey SEGURA Active POLYTRIM 15163-7.1 UNIT/ML-% OPHTHALMIC SOLUTION 1 rui p in affected eye every 3 hours while awake x 7 days POLYMYXIN B-TRIMETHOP RIM 73016857604 No Longer Active Corey SEGURA Active LOSARTAN POTASSIUM-HCTZ 100-12.5 MG ORAL TABLET 1 by m outh daily for high blood pressure LOSARTAN POTASSIUM-HCTZ 69123139409 No Longer A ctive Mitch Urbina DO Active LISINOPRIL-HYDROCHLOROTHIAZIDE 20-12.5 MG ORAL TABLET 1 tab by m outh daily LISINOPRIL-HYDROCHLOROTHIAZIDE 72366289808 No Longer Active Mitch Urbina DO Active LISINOPRIL 20 MG ORAL TABLET 1 tab po at HS LIS INOPRIL 52017780261 No Longer Active Mitch Urbina DO Active COUMADIN 5 MG ORAL TABLET 1 by mouth every other day 2 WARFARIN SODIUM 06308282590 No Longer Active Mithc Urbina DO Active COUMADIN 6 MG ORAL TABLET 1 by mouth every other day 2 WARFARIN SODIUM 49337467913 No Longer Active Mitch Urbina DO Active SIMVASTATIN 40 MG ORAL TABLET 1 tab daily at bedtime SIMVASTATIN 74815305452 Active Mitch Urbina DO Active SIMVASTATIN 20 MG ORAL TABLET 1 tab daily at bedtime 2 SIMVASTATIN 41232063085 No Longer Active Mitch Urbina DO Active LOVENOX 100 MG/ML SUBCUTANEOUS SOLUTION One injection twice a da y ENOXAPARIN SODIUM 66702602412 No Longer Active Carmine Yusuf MD Active JANUVIA 50 MG ORAL TABLET Take one by mouth daily SITAGLIPTIN PHOSPHATE 84611761477 Active Mitch Urbina DO Active JANUVIA 100 MG ORAL TABLET 1/2 by mouth every day 2011 SITAGLIPTIN PHOSPHATE 89311323585 No Longer Active Bijal Segal RN Acti ve METFORMIN HCL 500 MG ORAL TABLET 2 by mouth twice daily METFORMIN HCL 16252593774 Active Mitch Urbina DO Active COLCRYS 0.6 MG ORAL TABLET 1 po q 6 hours prn gout pain COLCHICINE 53021013219 No Longer Active Camila Reese Active LISINOPRIL 5 MG ORAL TABLET 1 by mouth every day 11/17 LISINOPRIL 72766088587 No Longer Active Nguyen Coekman Active KLOR-CON 20 MEQ ORAL PACKET Take one by mouth daily 09/10/08 POTASSIUM CHLORIDE 42768340807 No Longer Active Nguyen Perez Active FUROSEMIDE 40 MG ORAL TABLET 1 by mouth daily F UROSEMIDE 85580006384 No Longer Active Nguyen Coekman Active PROVIGIL 200 MG ORAL TABLET 1/2 tab po q day MODA FINIL 17106803067 Active Mitch Urbina DO Active PROVIGIL 100 MG ORAL TABLET Take one by mouth daily 08/20/04 MODAFINIL 16791890425 No Longer Active Mitch Urbina DO Active BACTRIM DS 800-160 MG ORAL TABLET 1 tab by mouth twice daily 201 10/19/09 TRIMETHOPRIM-SULFAMETHOXAZOLE 56116468578 No Longer Active Elian Hays MD Active FAMOTIDINE 20 MG ORAL TABLET by mouth twice a day FAMOTIDINE 77082212084 Active Mitch Urbina DO Active ADULT ASPIRIN LOW STRENGTH 81 MG ORAL TABLET DISINTEGR ATING 1 by mouth every daily ASPIRIN 33305745276 Active Mitch Urbina DO Ac tive METOPROLOL TARTRATE 50 MG ORAL TABLET 1 by mouth twice daily METOPROLOL TARTRATE 74323520542 Active Mitch Urbina DO Active BACTRIM DS 800-160 MG ORAL TABLET 1 tab by mouth twice daily 201 10/19/09 BACTRIM DS 800-160 MG ORAL TABLET 241273 TRIMETHOPRIM-SULFAMETHOXAZOLE Inactive PROVIGIL 100 MG ORAL TABLET Take one by mouth daily 08/20/04 PROVIGIL 100 MG ORAL TABLET 400308 MODAFINIL Inactive FUROSEMIDE 40 MG ORAL TABLET 1 by mouth daily FUROSEMIDE 40 MG ORAL TABLET 820088 FUROSEMIDE Inactive KLOR-CON 20 MEQ ORAL PACKET Take one by mouth daily 09/10/08 KLOR- CON 20 MEQ ORAL PACKET 7498528 POTASSIUM CHLORIDE Inactive LISINOPRIL 5 MG ORAL TABLET 1 by mouth every day 11/17 LISINOPRIL 5 MG ORAL TABLET 419024 LISINOPRIL Inactive COLCRYS 0.6 MG ORAL TABLET 1 po q 6 hours prn gout pain COLCRYS 0.6 MG ORAL TABLET 108561 COLCHICINE Inactive JANUVIA 100 MG ORAL TABLET 1/2 by mouth every day 2011 JANUVIA 100 MG ORAL TABLET SITAGLIPTIN PHOSPHATE Inactive SIMVASTATIN 20 MG ORAL TABLET 1 tab daily at bedtime 2 SIMVASTATIN 20 MG ORAL TABLET 010584 SIMVASTATIN Inactive COUMADIN 6 MG ORAL TABLET 1 by mouth every other day 2 COUMADIN 6 MG ORAL TABLET 137228 WARFARIN SODIUM Inactive COUMADIN 5 MG ORAL TABLET 1 by mouth every other day 2 COUMADIN 5 MG ORAL TABLET 871970 WARFARIN SODIUM Inactive LISINOPRIL 20 MG ORAL TABLET 1 tab po at HS LISINOPRIL 20 MG ORAL TABLET 320163 LISINOPRIL Inactive LISINOPRIL-HYDROCHLOROTHIAZIDE 20-12.5 MG ORAL TABLET 1 tab by m outh daily LISINOPRIL-HYDROCHLOROTHIAZIDE 20-12.5 MG ORAL TABLET 188292 LISINOPRIL-HYDROCHLOROTHIAZIDE Inactive POLYTRIM 05575-0.1 UNIT/ML-% OPHTHALMIC SOLUTION 1 rui p in affected eye every 3 hours while awake x 7 days POLYTRIM 1000 0-0.1 UNIT/ML-% OPHTHALMIC SOLUTION 220168 POLYMYXIN B-TRIMETHOPRIM Inactive COUMADIN 4 MG ORAL TABLET 1 tablet daily COUMADIN 4 MG ORAL TABLET 405281 WARFARIN SODIUM Inactive CLONIDINE HCL 0.1 MG ORAL TABLET 1 po bid 7 days, then 1/2 t ab po bid 7 days CLONIDINE HCL 0.1 MG ORAL TABLET 941687 CLONIDIN E HCL Inactive ALLOPURINOL 300 MG ORAL TABLET Take 1 tablet by mouth daily 2012 ALLOPURINOL 300 MG ORAL TABLET 882662 ALLOPURINOL I nactive MECLIZINE HCL 25 MG ORAL TABLET 1 po tid 3 days, then 1/2 ta b tid 3 days MECLIZINE HCL 25 MG ORAL TABLET 557241 MECLIZINE HCL Inactive AMLODIPINE BESYLATE 5 MG ORAL TABLET 1 tablet by mouth daily 201 01/20/04 AMLODIPINE BESYLATE 5 MG ORAL TABLET 760082 AMLODIPINE BESYLATE Inactive KEFLEX 500 MG ORAL CAPSULE 1 po qid K EFLEX 500 MG ORAL CAPSULE 750542 CEPHALEXIN Inactive LOVENOX 100 MG/ML SUBCUTANEOUS SOLUTION One injection twice a da y LOVENOX 100 MG/ML SUBCUTANEOUS SOLUTION 407014 ENOXAPAR IN SODIUM Inactive Vital Signs Date [...] - Chem istry sodium, serum 139 mmol/L 722-044 6446/07/17 potassium, serum 4.2 mmol/L 3.5-5.2 chloride, serum 102 mmol/L 98-107 carbon dioxide, venous blood 28.9 mmol/L 21.0-32 .0 blood glucose 211 mg/dL 65-110 calcium, serum 10.6 mg/dL 8.5-10.1 urea nitrogen, blood 29 mg/dL 7-18 creatinine, serum 1.24 mg/dL 0.60-1.30 sodium, serum 141 mmol/L 556-086 8534/08/07 potassium, serum 4.5 mmol/L 3.5-5.2 chloride, serum [...] ... - Chemistry sodium, serum 144 mmol/L 400-227 0025/06/12 carbon dioxide, venous blood 26.6 mmol/L 21.0-32 [...] HGBA1C - Chemistry cholesterol, serum 136 mg/dL 034-023 0440/12/06 triglyceride, serum, fasting 247 mg/dL 30-200 HDL [...] 1.0-3.5 Encounters Code Encounter Date Provider Facility CPT-60433 Level 3 Est. Patient 18:25:53 CDT Mitch luis [facility] CPT-01180 Level 3 Est. Patient 19:43:34 CDT Mitch luis [facility] CPT-59114 Level 4 Est. Patient 09:30:18 CDT Mitch luis [facility] CPT-74770 Level 3 Est. Patient 15:10:14 [facility]T [facility] CPT-70910 Level 3 Est. Patient 15:03:46 CDT Joe kamara [facility] CPT-84664 Level 3 Est. Patient 14:21:06 CDT Mitch luis [facility] CPT-59929 Level 3 Est. Patient 14:52:06 CDT Joe kamara [facility] CPT-26590 Level 3 Est. Patient 09:34:30 BILINGUAL OFFICE ASSISTANT Mitch luis [facility] CPT-61247 Level 3 Est. Patient 09:37:15 CDT Mitch W L ee [facility] CPT-98883 Level 3 Est. Patient 17:01:00 BILINGUAL OFFICE ASSISTANT Mitch W L ee DO [facility] CPT-47293 Level 3 Est. Patient 13:53:19 BILINGUAL OFFICE ASSISTANT Mitch W L ee DO [facility] CPT-85867 Level 3 Est. Patient 19:19:37 BILINGUAL OFFICE ASSISTANT Mitch W L ee DO [facility] CPT-95281 Level 3 Est. Patient 13:25:53 BILINGUAL OFFICE ASSISTANT Tavo toure MD [facility] CPT-85173 Level 3 Est. Patient 18:17:28 CDT Mitch W L ee [facility] CPT-04316 Level 3 Est. Patient 15:22:57 CDT Mitch W L ee [facility] CPT-68221 Level 3 Est. Patient 18:21:50 CDT Mitch W L ee [facility] CPT-02390 Level 3 Est. Patient 18:20:38 CDT Mitch W L ee [facility] CPT-70281 Level 3 Est. Patient 15:37:55 CDT Mitch W L ee [facility] CPT-83738 Level 2 Est. Patient 15:54:44 CDT Carmine benton MD [facility]-84517 Level 3 Est. Patient 21:46:01 BILINGUAL OFFICE ASSISTANT Mitch W L ee [facility] CPT-92836 Level 3 Est. Patient 22:15:50 CDT Mitch W L ee [facility] CPT-75110 Level 3 Est. Patient 10:48:15 CDT Mitch W L ee [facility] CPT-19336 Level 3 Est. Patient 23:20:57 CDT Tavo toure MD [facility] CPT-57992 Level 3 Est. Patient 16:26:13 CDT Mitch Castellano [facility] Procedures Code Procedure Name Date Entry Date Standard Desc ription CPT-63425 Venipuncture Draw Fee 09:26:17 CDT CPT-12303 PT/INR - LAB USE ONLY 13:32:49 BILINGUAL OFFICE ASSISTANT CPT-11327 Venipuncture Draw Fee 13:32:49 BILINGUAL OFFICE ASSISTANT CPT-91482 PT/INR - LAB USE ONLY 10:34:49 BILINGUAL OFFICE ASSISTANT CPT-74602 Venipuncture Draw Fee 10:34:48 BILINGUAL OFFICE ASSISTANT CPT-01651 PT/INR - LAB USE ONLY 09:22:03 BILINGUAL OFFICE ASSISTANT CPT-92356 Venipuncture Draw Fee 09:22:02 BILINGUAL OFFICE ASSISTANT CPT-09508 Hemoccult IFOBT - LAB USE ONLY 10:27:22 CDT CPT-35732 Venipuncture Draw Fee 08:27:08 CDT CPT-86471 Liver Profile - LAB USE ONLY 08:27:07 CDT 2 CPT-39413 Microalbumin - LAB USE ONLY 08:27:07 CDT 20 25/05/09 CPT-52425 PT/INR - LAB USE ONLY 08:27:07 CDT CPT-74804 HGBA1C - LAB USE ONLY 08:27:07 CDT CPT-80403 CBC - LAB USE ONLY 08:27:07 CDT CPT-11910 Venipuncture Draw Fee 11:09:14 CDT CPT-61337 Venipuncture Draw Fee 08:32:21 BILINGUAL OFFICE ASSISTANT CPT-96305 Venipuncture Draw Fee 09:38:56 BILINGUAL OFFICE ASSISTANT CPT-82569 No Charge Offi Visit 21:36:07 CDT 1 CPT-53512 Venipuncture Draw Fee 10:13:28 BILINGUAL OFFICE ASSISTANT CPT-97779 Venipuncture Draw Fee 08:31:11 CDT CPT-27007 Aspir/Inject Med Joint 18:17:28 CDT CPT-87085 Venipuncture Draw Fee 10:13:30 CDT CPT-62837 Venipuncture Draw Fee 08:31:43 BILINGUAL OFFICE ASSISTANT CPT-JTINJ Joint Injection 18:34:50 CDT CPT-09881 Knee 3V 12:25:09 CDT CPT-27703 Venipuncture Draw Fee 12:15:57 CDT CPT-060 Medical Surveillance Exam 21:31:43 CDT 2011 CPT-36061 Venipuncture Draw Fee 08:32:05 BILINGUAL OFFICE ASSISTANT CPT-OV Office Visit 18:19:06 CDT
--- OUTSIDE RECORDS SUMMARY | 2020-01-18 12:53 | XMS REPORT | Clinical Summary ---
[...] Coronary atherosclerosis of unspecified type of vessel, [place] or graft EDEMA 782.3 Resolved Mitch Urbina [...] ORAL TABS 1 tablet orally daily CANAGLIFLOZIN 82064512930 Active Kathie Juan RPT,RMA Active MINOXIDIL 2.5 MG TABS 1 tablet daily for high blood pressure 10/23 MINOXIDIL 70120491417 Active Mitch Arnol Carlitos Active AMLODIPINE BESYLATE 5 MG TABS 1 tablet by mouth daily AMLODIPINE BESYLATE 81005288085 Active Domi Rivera MA Active MECLIZINE HCL 25 MG TAB 1 po tid 3 days, then 1/2 tab tid 3 days MECLIZINE HCL 62831581631 No Longer Active Corey SEGURA Active ALLOPURINOL 300 MG TABS Take 1 tablet by mouth daily 2 ALLOPURINOL 64399180560 No Longer Active Corey SEGURA Activ e CLONIDINE HCL 0.1 MG TABS 1 po bid 7 days, then 1/2 tab po b id 7 days CLONIDINE HCL 53097257884 No Longer Active Corey SEGURA Active COUMADIN 5 MG TABS 1 tab PO daily WARFARIN SODIUM 48817041859 Active Mitch Urbina DO Active COUMADIN 4 MG TABS 1 tablet daily WARFARIN SODI UM 63196515127 No Longer Active Corey SEGURA Active POLYTRIM 25520-0.1 UNIT/ML-% SOLN 1 drop in affected e ye every 3 hours while awake x 7 days POLYMYXIN B-TRIMETHOPRIM 35198550508 N o Longer Active Croey SEGURA Active LOSARTAN POTASSIUM-HCTZ 100-12.5 MG TABS 1 by mouth da [place] for high blood pressure LOSARTAN POTASSIUM-HCTZ 30166414656 Active Stephy Urbina DO Active LISINOPRIL-HYDROCHLOROTHIAZIDE 20-12.5 MG TABS 1 tab by mouth da rocky LISINOPRIL-HYDROCHLOROTHIAZIDE 14684651969 No Longer Active Mitch luis DO Active LISINOPRIL 20 MG TABS 1 tab po at HS LISINOPRIL 50829999284 No Longer Active Mitch Urbina DO Active COUMADIN 5 MG TABS 1 by mouth every other day WARFARIN SODIUM 00266963830 No Longer Active Mitch Urbina DO Active COUMADIN 6 MG TABS 1 by mouth every other day WARFARIN SODIUM 67148568893 No Longer Active Mitch Urbina DO Active COLCRYS 0.6 MG TABS 1 tab qid prn gout COLCHICINE 63757605154 Active Corey SEGURA Active SIMVASTATIN 40 MG TABS 1 tab daily at bedtime S IMVASTATIN 48789436325 Active Domi Rivera MA Active SIMVASTATIN 20 MG TABS 1 tab daily at bedtime S IMVASTATIN 80148798577 No Longer Active Mitch Urbina DO Active LOVENOX 100 MG/ML SC SOLN One injection twice a day 09/15/15 ENOXAPARIN SODIUM 07594880464 No Longer Active Carmine Navarrete ctive JANUVIA 50 MG TABS Take one by mouth daily DIEGO GLIPTIN PHOSPHATE 84280945349 Active Kathie Juan RPT,RMA Active JANUVIA 100 MG TABS 1/2 by mouth every day DIEGO GLIPTIN PHOSPHATE 36375653395 No Longer Active Bijal Segal RN Active METFORMIN HCL 500 MG TABS 2 by mouth twice daily METFORMIN HCL 08942158081 Active Mitch Urbina DO Active GLIMEPIRIDE 4 MG TABS 1 tab po bid GLIMEPIRIDE 950577 10850 Active Mitch Urbina DO Active COLCRYS 0.6 MG TABS 1 po q 6 hours prn gout pain 03/02 COLCHICINE 58096150590 No Longer Active Camila Reese Active LISINOPRIL 5 MG TABS 1 by mouth every day LISIN OPRIL 83545437681 No Longer Active Nguyenmolly Perez Active KLOR-CON 20 MEQ PACK Take one by mouth daily 8 POTASSIUM CHLORIDE 24058691554 No Longer Active Nguyenmolly Perez Active FUROSEMIDE 40 MG TABS 1 by mouth daily FUROSEMI DE 22992734106 No Longer Active Nguyen Perez Active PROVIGIL 200 MG TABS 1/2 tab po q day MODAFINIL 33477 476267 Active Kathie Juan RPT,RMA Active PROVIGIL 100 MG TABS Take one by mouth daily MO DAFINIL 39776617253 No Longer Active Mitch Urbina DO Active BACTRIM DS 800-160 MG TAB 1 tab by mouth twice daily 2 TRIMETHOPRIM-SULFAMETHOXAZOLE 76492332842 No Longer Active Renan Hays MD Active FAMOTIDINE 20 MG TABS by mouth twice a day FAMOTI DINE 31743396856 Active Mitch Urbina DO Active ADULT ASPIRIN LOW STRENGTH 81 MG TBDP 1 by mouth every daily ASPIRIN 19980012175 Active Mitch Urbina DO Active METOPROLOL TARTRATE 50 MG TABS 1 by mouth twice daily METOPROLOL TARTRATE 89363474023 Active Kathie Juan RPT,RMA Acti ve BACTRIM DS 800-160 MG TAB 1 tab by mouth twice daily 2 BACTRIM DS 800-160 MG TAB 804471 TRIMETHOPRIM-SULFAMETHOXAZOLE Inac tive PROVIGIL 100 MG TABS Take one by mouth daily 4 PROVIGIL 100 MG TABS 540985 MODAFINIL Inactive FUROSEMIDE 40 MG TABS 1 by mouth daily FU ROSEMIDE 40 MG TABS 463337 FUROSEMIDE Inactive KLOR-CON 20 MEQ PACK Take one by mouth daily 8 KLOR-CON 20 MEQ PACK 754059 POTASSIUM CHLORIDE Inactive LISINOPRIL 5 MG TABS 1 by mouth every day LISINOPRIL 5 MG TABS 725016 LISINOPRIL Inactive COLCRYS 0.6 MG TABS 1 po q 6 hours prn gout pain 03/02 COLCRYS 0.6 MG TABS 141874 COLCHICINE Inactive JANUVIA 100 MG TABS 1/2 by mouth every day JANUVI A 100 MG TABS SITAGLIPTIN PHOSPHATE Inactive SIMVASTATIN 20 MG TABS 1 tab daily at bedtime SIMVASTATIN 20 MG TABS 366981 SIMVASTATIN Inactive COUMADIN 6 MG TABS 1 by mouth every other day COUMADIN 6 MG TABS 502220 WARFARIN SODIUM Inactive COUMADIN 5 MG TABS 1 by mouth every other day COUMADIN 5 MG TABS 419356 WARFARIN SODIUM Inactive LISINOPRIL 20 MG TABS 1 tab po at HS [place]I NOPRIL 20 MG TABS 541415 LISINOPRIL Inactive LISINOPRIL-HYDROCHLOROTHIAZIDE 20-12.5 MG TABS 1 tab by mouth da rocky LISINOPRIL-HYDROCHLOROTHIAZIDE 20-12.5 MG TABS 306658 LISINOPRIL-HYDROCHLOROTHIAZIDE Inactive POLYTRIM 29117-9.1 UNIT/ML-% SOLN 1 drop in affected e ye every 3 hours while awake x 7 days POLYTRIM 21306-4.1 UNIT/ML-% SOLN 63662 7 POLYMYXIN B-TRIMETHOPRIM Inactive COUMADIN 4 MG TABS 1 tablet daily COUMADIN 4 MG TABS 019177 WARFARIN SODIUM Inactive CLONIDINE HCL 0.1 MG TABS 1 po bid 7 days, then 1/2 tab po b id 7 days CLONIDINE HCL 0.1 MG TABS 087349 CLONIDINE HCL I nactive ALLOPURINOL 300 MG TABS Take 1 tablet by mouth daily 2 ALLOPURINOL 300 MG TABS 593158 ALLOPURINOL Inactive MECLIZINE HCL 25 MG TAB 1 po tid 3 days, then 1/2 tab tid 3 days MECLIZINE HCL 25 MG TAB 559357 MECLIZINE HCL Inactive LOVENOX 100 MG/ML SC SOLN One injection twice a day 09/15/15 LOVENOX 100 MG/ML SC SOLN 183577 ENOXAPARIN SODIUM Inactive Vital Signs Date Name [...] Ag - Chemistry sodium, serum 141 mmol/L 340-619 9920/07/06 potassium, serum 4.4 mmol/L 3.5-5.2 chloride, serum [...] - Chem istry sodium, serum 136 mmol/L 197-317 6491/01/14 carbon dioxide, venous blood 25.4 mmol/L 21.0-32 [...] 7.0 % 4.3-6.0 cholesterol, serum 120 mg/dL 201-735 4215/07/06 triglyceride, serum, fasting 186 mg/dL 30-200 HDL [...] 1.0-3.5 Encounters Code Encounter Date Provider Facility CPT-50652 Level 3 Est. Patient 09:34:30 MASSAGE THERAPY INSTRUCTOR Mitch W L ee DO [facility] CPT-23631 Level 3 Est. Patient 09:37:15 CDT Mitch W L ee DO [facility] CPT-58078 Level 3 Est. Patient 17:01:00 MASSAGE THERAPY INSTRUCTOR Mitch W L ee DO [facility] CPT-28563 Level 3 Est. Patient 13:53:19 MASSAGE THERAPY INSTRUCTOR Mitch W L ee [facility] CPT-39345 Level 3 Est. Patient 19:19:37 MASSAGE THERAPY INSTRUCTOR Mitch W L ee DO [facility] CPT-15645 Level 3 Est. Patient 13:25:53 MASSAGE THERAPY INSTRUCTOR Tavo toure MD [facility]-14220 Level 3 Est. Patient 18:17:28 CDT Mitch W L ee [facility] CPT-90557 Level 3 Est. Patient 15:22:57 CDT Mitch W L ee [facility] CPT-61639 Level 3 Est. Patient 18:21:50 CDT Mitch W L ee [facility] CPT-02260 Level 3 Est. Patient 18:20:38 CDT Mitch W L ee [facility] CPT-98900 Level 3 Est. Patient 15:37:55 CDT Mitch W L ee [facility] CPT-82776 Level 2 Est. Patient 15:54:44 CDT Carmine benton MD [facility]-22568 Level 3 Est. Patient 21:46:01 MASSAGE THERAPY INSTRUCTOR Mitch W L ee [facility] CPT-94186 Level 3 Est. Patient 22:15:50 CDT Mitch W L ee [facility] CPT-58169 Level 3 Est. Patient 10:48:15 CDT Mitch W L ee [facility] CPT-13786 Level 3 Est. Patient 23:20:57 CDT Tavo toure MD [facility] CPT-75381 Level 3 Est. Patient 16:26:13 CDT Mitch luis DO [facility] Procedures Code Procedure Name Date Entry Date Standard Desc ription CPT-84502 Venipuncture Draw Fee 09:38:56 MASSAGE THERAPY INSTRUCTOR CPT-04476 No Charge Offi Visit 21:36:07 CDT 1 CPT-37315 Venipuncture Draw Fee 10:13:28 MASSAGE THERAPY INSTRUCTOR CPT-79911 Venipuncture Draw Fee 08:31:11 CDT CPT-84237 Aspir/Inject Med Joint 18:17:28 CDT CPT-46819 Venipuncture Draw Fee 10:13:30 CDT CPT-81370 Venipuncture Draw Fee 08:31:43 MASSAGE THERAPY INSTRUCTOR CPT-JTINJ Joint Injection 18:34:50 CDT CPT-59624 Knee 3V 12:25:09 CDT CPT-99534 Venipuncture Draw Fee 12:15:57 CDT CPT-060 Medical Surveillance Exam 21:31:43 CDT 2011 CPT-39853 Venipuncture Draw Fee 08:32:05 MASSAGE THERAPY INSTRUCTOR CPT-OV Office Visit 18:19:06 CDT
--- OUTSIDE RECORDS SUMMARY | 2020-01-18 12:53 | XMS REPORT | Clinical Summary ---
Author Author Admin, Mitch Leon Organization [facility] Address Unknown Phone Unavailable Allergies, Adverse [...] atherosclerosis of unspecified type of vessel, [place] or graft EDEMA 782.3 Active Mitch Urbina [...] 1 tablet by mouth daily AMLODIPINE BESYLATE 47030284071 Active Mitch Urbina DO Active MECLIZINE HCL 25 MG TAB 1 po tid 3 days, then 1/2 tab tid 3 days MECLIZINE HCL 36080848873 No Longer Active Corey SEGURA Active ALLOPURINOL 300 MG TABS Take 1 tablet by mouth daily 2 ALLOPURINOL 99690267134 No Longer Active Corey SEGURA Activ e CLONIDINE HCL 0.1 MG TABS 1 po bid 7 days, then 1/2 tab po b id 7 days CLONIDINE HCL 03424618170 No Longer Active Corey SEGURA Active COUMADIN 5 MG TABS 1 tab PO daily WARFARIN SODIUM 31546656081 Active Mitch Urbina DO Active COUMADIN 4 MG TABS 1 tablet daily WARFARIN SODI UM 21776294539 No Longer Active Corey SEGURA Active POLYTRIM 23337-5.1 UNIT/ML-% SOLN 1 drop in affected e ye every 3 hours while awake x 7 days POLYMYXIN B-TRIMETHOPRIM 72106495921 N o Longer Active Corey SEGURA Active LOSARTAN POTASSIUM-HCTZ 100-12.5 MG TABS 1 by mouth da rocky for high blood pressure LOSARTAN POTASSIUM-HCTZ 57783797283 Active Stephy Urbina DO Active LISINOPRIL-HYDROCHLOROTHIAZIDE 20-12.5 MG TABS 1 tab by mouth da rocky LISINOPRIL-HYDROCHLOROTHIAZIDE 91737277544 No Longer Active Mitch luis DO Active LISINOPRIL 20 MG TABS 1 tab po at HS LISINOPRIL 50268525502 No Longer Active Mithc Urbina DO Active COUMADIN 5 MG TABS 1 by mouth every other day WARFARIN SODIUM 17076094441 No Longer Active Mitch Urbina DO Active COUMADIN 6 MG TABS 1 by mouth every other day WARFARIN SODIUM 71321181478 No Longer Active Mitch Urbina DO Active COLCRYS 0.6 MG TABS 1 tab qid prn gout COLCHICINE 63604226801 Active Corey SEGURA Active SIMVASTATIN 40 MG TABS 1 tab daily at bedtime S IMVASTATIN 77831220279 Active Mitch Urbina DO Active SIMVASTATIN 20 MG TABS 1 tab daily at bedtime S IMVASTATIN 07649573572 No Longer Active Mitch Urbina DO Active LOVENOX 100 MG/ML SC SOLN One injection twice a day 09/15/15 ENOXAPARIN SODIUM 74982639493 No Longer Active Carmine Navarrete ctive JANUVIA 50 MG TABS Take one by mouth daily DIEGO GLIPTIN PHOSPHATE 35028978015 Active Mitch Urbina DO Active JANUVIA 100 MG TABS 1/2 by mouth every day DIEGO GLIPTIN PHOSPHATE 32525046022 No Longer Active Bijalseth Segal RN Active METFORMIN HCL 500 MG TABS 2 by mouth twice daily METFORMIN HCL 38814763181 Active Mitch Urbina DO Active GLIMEPIRIDE 4 MG TABS 1 tab po bid GLIMEPIRIDE 203873 02628 Active Mitch Urbina DO Active COLCRYS 0.6 MG TABS 1 po q 6 hours prn gout pain 03/02 COLCHICINE 51618296560 No Longer Active Camilamargarita Reese Active LISINOPRIL 5 MG TABS 1 by mouth every day LISIN OPRIL 06055404391 No Longer Active Nguyenmolly Perez Active KLOR-CON 20 MEQ PACK Take one by mouth daily 8 POTASSIUM CHLORIDE 73760718173 No Longer Active Nguyenmolly Perez Active FUROSEMIDE 40 MG TABS 1 by mouth daily FUROSEMI DE 10680107758 No Longer Active Nguyen Perez Active PROVIGIL 200 MG TABS 1/2 tab po q day MODAFINIL 55422 133101 Active Mitch Urbina DO Active PROVIGIL 100 MG TABS Take one by mouth daily MO DAFINIL 16153722682 No Longer Active Mitch Urbina DO Active BACTRIM DS 800-160 MG TAB 1 tab by mouth twice daily TRIMETHOPRIM-SULFAMETHOXAZOLE 36926807944 No Longer Active Renan Hays MD Active FAMOTIDINE 20 MG TABS by mouth twice a day FAMOTI DINE 29351648754 Active Mitch Urbina DO Active ADULT ASPIRIN LOW STRENGTH 81 MG TBDP 1 by mouth every daily ASPIRIN 75320076678 Active Mitch W [place] DO Active METOPROLOL TARTRATE 50 MG TABS 1 by mouth twice daily METOPROLOL TARTRATE 99036393752 Active Curly Coker MD Active BACTRIM DS 800-160 MG TAB 1 tab by mouth twice daily 2 BACTRIM DS 800-160 MG TAB TRIMETHOPRIM-SULFAMETHOXAZOLE Inac tive PROVIGIL 100 MG TABS Take one by mouth daily 4 PROVIGIL 100 MG TABS 580708 MODAFINIL Inactive FUROSEMIDE 40 MG TABS 1 by mouth daily FU ROSEMIDE 40 MG TABS 325298 FUROSEMIDE Inactive KLOR-CON 20 MEQ PACK Take one by mouth daily 8 KLOR-CON 20 MEQ PACK 723640 POTASSIUM CHLORIDE Inactive LISINOPRIL 5 MG TABS 1 by mouth every day LISINOPRIL 5 MG TABS 414727 LISINOPRIL Inactive COLCRYS 0.6 MG TABS 1 po q 6 hours prn gout pain 03/02 COLCRYS 0.6 MG TABS 768826 COLCHICINE Inactive JANUVIA 100 MG TABS 1/2 by mouth every day JANUVI A 100 MG TABS SITAGLIPTIN PHOSPHATE Inactive SIMVASTATIN 20 MG TABS 1 tab daily at bedtime SIMVASTATIN 20 MG TABS 512018 SIMVASTATIN Inactive COUMADIN 6 MG TABS 1 by mouth every other day COUMADIN 6 MG TABS 435281 WARFARIN SODIUM Inactive COUMADIN 5 MG TABS 1 by mouth every other day COUMADIN 5 MG TABS 617069 WARFARIN SODIUM Inactive LISINOPRIL 20 MG TABS 1 tab po at HS KOKI NOPRIL 20 MG TABS 584183 LISINOPRIL Inactive LISINOPRIL-HYDROCHLOROTHIAZIDE 20-12.5 MG TABS 1 tab by mouth da rocky LISINOPRIL-HYDROCHLOROTHIAZIDE 20-12.5 MG TABS 998021 LISINOPRIL-HYDROCHLOROTHIAZIDE Inactive POLYTRIM 11488-7.1 UNIT/ML-% SOLN 1 drop in affected e ye every 3 hours while awake x 7 days POLYTRIM 14845-0.1 UNIT/ML-% SOLN 93310 7 POLYMYXIN B-TRIMETHOPRIM Inactive COUMADIN 4 MG TABS 1 tablet daily COUMADIN 4 MG TABS 696266 WARFARIN SODIUM Inactive CLONIDINE HCL 0.1 MG TABS 1 po bid 7 days, then 1/2 tab po b id 7 days CLONIDINE HCL 0.1 MG TABS 220249 CLONIDINE HCL I nactive ALLOPURINOL 300 MG TABS Take 1 tablet by mouth daily 2 ALLOPURINOL 300 MG TABS 016279 ALLOPURINOL Inactive MECLIZINE HCL 25 MG TAB 1 po tid 3 days, then 1/2 tab tid 3 days MECLIZINE HCL 25 MG TAB 333698 MECLIZINE HCL Inactive LOVENOX 100 MG/ML SC SOLN One injection twice a day 09/15/15 LOVENOX 100 MG/ML SC SOLN 067398 ENOXAPARIN SODIUM Inactive Vital Signs Date Name [...] Ag - Chemistry sodium, serum 141 mmol/L 997-518 3132/07/06 potassium, serum 4.4 mmol/L 3.5-5.2 chloride, serum [...] 8.0 % 4.3-6.0 cholesterol, serum 130 mg/dL 136-911 3184/11/14 triglyceride, serum, fasting 288 mg/dL 30-200 HDL cholesterol, serum 33 mg/dL 32-96 LDL cholesterol, serum 39 mg/dL 0-130 chloride, serum 100 mmol/L 98-107 potassium, serum 4.4 mmol/L 3.5-5.2 sodium, serum 137 mmol/L 860-435 2080/11/14 alanine aminotransferase (SGPT), serum 38 U/L -78 creatinine, serum 1.30 mg/dL 0.60-1.30 urea nitrogen, blood 28 mg/dL 7-18 blood glucose 181 mg/dL 65-110 carbon dioxide, venous blood 33.0 mmol/L 21.0-32 .0 Lab Report: Comp. Metabolic Panel, HGBA1 C, Lipid Panel, Prothrombin Time - Chemistry sodium, serum 136 mmol/L 742-376 3033/12/02 potassium, serum 4.4 mmol/L 3.5-5.2 chloride, serum [...] 7.6 % 4.3-6.0 cholesterol, serum 117 mg/dL 393-882 5106/12/02 triglyceride, serum, fasting 226 mg/dL 30-200 HDL [...] 7.0 % 4.3-6.0 cholesterol, serum 120 mg/dL 430-519 5860/07/06 triglyceride, serum, fasting 186 mg/dL 30-200 HDL cholesterol, serum 34 mg/dL 32-96 LDL cholesterol, serum 49 mg/dL 0-130 Lab Report: MICROALBUMIN - Chemistry albumin/creatinine ratio, urine < 30 mg/g mg/g{creat} 0-2 9 Lab Report: MICROALBUMIN - Lab microalbumin, urine 30 0-19 Lab Report: Prothrombin Time - Coagulati on international normalized ratio (INR) 1.7 1.0-3.5 prothrombin time (patient) 16.0 SECS s 11.1-13.4 prothrombin time (patient) 20.1 SECS s 11.1-13.4 international normalized ratio (INR) 2.6 1.0-3.5 prothrombin time (patient) 19.9 SECS s 11.1-13.4 international normalized ratio (INR) 2.6 1.0-3.5 prothrombin time (patient) 18.6 SECS s 11.1-13.4 international normalized ratio (INR) 2.2 1.0-3.5 international normalized ratio (INR) 2.3 1.0-3.5 prothrombin time (patient) 18.6 SECS s 11.1-13.4 Encounters Code Encounter Date Provider Facility CPT-90022 Level 3 Est. Patient 09:37:15 CDT Mitch luis [facility] CPT-48858 Level 3 Est. Patient 17:01:00 CONFERENCE CENTER MANAGER Mitch Ambrose L janelle [facility] CPT-69079 Level 3 Est. Patient 13:53:19 CONFERENCE CENTER MANAGER Mitch Ambrose L janelle [facility] CPT-53177 Level 3 Est. Patient 19:19:37 CONFERENCE CENTER MANAGER Mitch W L janelle [facility] CPT-13265 Level 3 Est. Patient 13:25:53 CONFERENCE CENTER MANAGER Tavo toure MD [facility]-34066 Level 3 Est. Patient 18:17:28 CDT Mitch W L janelle [facility] CPT-05418 Level 3 Est. Patient 15:22:57 CDT Mitch W L janelle [facility] CPT-43307 Level 3 Est. Patient 18:21:50 CDT Mitch W L janelle [facility] CPT-25857 Level 3 Est. Patient 18:20:38 CDT Mitch W L ee [facility]-13498 Level 3 Est. Patient 15:37:55 CDT Mitch W L janelle [facility] CPT-93903 Level 2 Est. Patient 15:54:44 CDT Carmine benton MD [facility]-84460 Level 3 Est. Patient 21:46:01 CONFERENCE CENTER MANAGER Mitch W L janelle [facility] CPT-81767 Level 3 Est. Patient 22:15:50 CDT Mitch W L ee [facility] CPT-42393 Level 3 Est. Patient 10:48:15 CDT Mitch W L ee [facility] CPT-47964 Level 3 Est. Patient 23:20:57 CDT Tavo toure MD [facility] CPT-44382 Level 3 Est. Patient 16:26:13 CDT Mitch luis DO [facility] Procedures Code Procedure Name Date Entry Date Standard Desc ription CPT-57443 No Charge Offi Visit 21:36:07 CDT 1 CPT-06177 Venipuncture Draw Fee 10:13:28 CONFERENCE CENTER MANAGER CPT-09115 Venipuncture Draw Fee 08:31:11 CDT CPT-08805 Aspir/Inject Med Joint 18:17:28 CDT CPT-69927 Venipuncture Draw Fee 10:13:30 CDT CPT-79821 Venipuncture Draw Fee 08:31:43 CONFERENCE CENTER MANAGER CPT-JTINJ Joint Injection 18:34:50 CDT CPT-48521 Knee 3V 12:25:09 CDT CPT-45910 Venipuncture Draw Fee 12:15:57 CDT CPT-060 Medical Surveillance Exam 21:31:43 CDT 2011 CPT-79798 Venipuncture Draw Fee 08:32:05 CONFERENCE CENTER MANAGER CPT-OV Office Visit 18:19:06 CDT
--- OUTSIDE RECORDS SUMMARY | 2020-01-18 12:54 | XMS REPORT | Clinical Summary ---
Author Author Admin, Mitch Leon Organization [facility] Address Unknown Phone Unavailable Allergies, Adverse [...] Coronary atherosclerosis of unspecified type of vessel, grindstone or graft EDEMA 782.3 Active Mitch Urbina [...] 1 tablet by mouth daily AMLODIPINE BESYLATE 68053085203 Active Mitch Urbina DO Active MECLIZINE HCL 25 MG TAB 1 po tid 3 days, then 1/2 tab tid 3 days MECLIZINE HCL 70114245946 No Longer Active Corey SEGURA Active ALLOPURINOL 300 MG TABS Take 1 tablet by mouth daily 2 ALLOPURINOL 67077088076 No Longer Active Corey SEGURA Activ e CLONIDINE HCL 0.1 MG TABS 1 po bid 7 days, then 1/2 tab po b id 7 days CLONIDINE HCL 25823712263 No Longer Active Corey SEGURA Active COUMADIN 5 MG TABS 1 tab PO daily WARFARIN SODIUM 84699552951 Active Mitch Urbina DO Active COUMADIN 4 MG TABS 1 tablet daily WARFARIN SODI UM 22859733400 No Longer Active Corey SEGURA Active POLYTRIM 63487-5.1 UNIT/ML-% SOLN 1 drop in affected e ye every 3 hours while awake x 7 days POLYMYXIN B-TRIMETHOPRIM 80124579036 N o Longer Active Corey SEGURA Active LOSARTAN POTASSIUM-HCTZ 100-12.5 MG TABS 1 by mouth [place] for high blood pressure LOSARTAN POTASSIUM-HCTZ 37825256965 Active Stephy Urbina DO Active LISINOPRIL-HYDROCHLOROTHIAZIDE 20-12.5 MG TABS 1 tab by mouth da rocky LISINOPRIL-HYDROCHLOROTHIAZIDE 55284562906 No Longer Active Mitch luis DO Active LISINOPRIL 20 MG TABS 1 tab po at HS LISINOPRIL 19189691986 No Longer Active Mitch Urbina DO Active COUMADIN 5 MG TABS 1 by mouth every other day WARFARIN SODIUM 07145652331 No Longer Active Mitch Urbina DO Active COUMADIN 6 MG TABS 1 by mouth every other day WARFARIN SODIUM 83386167388 No Longer Active Mitch Urbina DO Active COLCRYS 0.6 MG TABS 1 tab qid prn gout COLCHICINE 56691843001 Active Corey SEGURA Active SIMVASTATIN 40 MG TABS 1 tab daily at bedtime S IMVASTATIN 47947159766 Active Mitch Urbina DO Active SIMVASTATIN 20 MG TABS 1 tab daily at bedtime S IMVASTATIN 31354066825 No Longer Active Mitch Urbina DO Active LOVENOX 100 MG/ML SC SOLN One injection twice a day 09/15/15 ENOXAPARIN SODIUM 14541974837 No Longer Active Carmine D [place] MD A ctive JANUVIA 50 MG TABS Take one by mouth daily DIEGO GLIPTIN PHOSPHATE 54898754263 Active Mitch Urbina DO Active JANUVIA 100 MG TABS 1/2 by mouth every day DIEGO GLIPTIN PHOSPHATE 76541295146 No Longer Active Bijalseth Segal RN Active METFORMIN HCL 500 MG TABS 2 by mouth twice daily METFORMIN HCL 67296616190 Active Corey Arias PA Active GLIMEPIRIDE 4 MG TABS 1 tab po bid GLIMEPIRIDE 298947 35522 Active Mitch Urbina DO Active COLCRYS 0.6 MG TABS 1 po q 6 hours prn gout pain 03/02 COLCHICINE 53908673617 No Longer Active Camila Reese Active LISINOPRIL 5 MG TABS 1 by mouth every day LISIN OPRIL 16059623086 No Longer Active Nguyen Perez Active KLOR-CON 20 MEQ PACK Take one by mouth daily 8 POTASSIUM CHLORIDE 84590309745 No Longer Active Nguyen Perez Active FUROSEMIDE 40 MG TABS 1 by mouth daily FUROSEMI DE 74361577774 No Longer Active Nguyen Perez Active PROVIGIL 200 MG TABS 1/2 tab po q day MODAFINIL 01242 567526 Active Mitch Urbina DO Active PROVIGIL 100 MG TABS Take one by mouth daily MO DAFINIL 73897648627 No Longer Active Mitch Urbina DO Active BACTRIM DS 800-160 MG TAB 1 tab by mouth twice daily 2 TRIMETHOPRIM-SULFAMETHOXAZOLE 30753811475 No Longer Active Renan Hays MD Active FAMOTIDINE 20 MG TABS by mouth twice a day FAMOTI DINE 22703482972 Active Mitch Urbina DO Active ADULT ASPIRIN LOW STRENGTH 81 MG TBDP 1 by mouth every daily ASPIRIN 28693549741 Active Mitch Urbina DO Active METOPROLOL TARTRATE 50 MG TABS 1 by mouth twice daily METOPROLOL TARTRATE 76449413193 Active Curly Coker MD Active BACTRIM DS 800-160 MG TAB 1 tab by mouth twice daily 2 BACTRIM DS 800-160 MG TAB TRIMETHOPRIM-SULFAMETHOXAZOLE Inac tive PROVIGIL 100 MG TABS Take one by mouth daily 4 PROVIGIL 100 MG TABS 661871 MODAFINIL Inactive FUROSEMIDE 40 MG TABS 1 by mouth daily FU ROSEMIDE 40 MG TABS 589678 FUROSEMIDE Inactive KLOR-CON 20 MEQ PACK Take one by mouth daily 8 KLOR-CON 20 MEQ PACK 066631 POTASSIUM CHLORIDE Inactive LISINOPRIL 5 MG TABS 1 by mouth every day LISINOPRIL 5 MG TABS 996558 LISINOPRIL Inactive COLCRYS 0.6 MG TABS 1 po q 6 hours prn gout pain 03/02 COLCRYS 0.6 MG TABS 495453 COLCHICINE Inactive JANUVIA 100 MG TABS 1/2 by mouth every day JANUVI A 100 MG TABS SITAGLIPTIN PHOSPHATE Inactive SIMVASTATIN 20 MG TABS 1 tab daily at bedtime SIMVASTATIN 20 MG TABS 238637 SIMVASTATIN Inactive COUMADIN 6 MG TABS 1 by mouth every other day COUMADIN 6 MG TABS 912703 WARFARIN SODIUM Inactive COUMADIN 5 MG TABS 1 by mouth every other day COUMADIN 5 MG TABS 291517 WARFARIN SODIUM Inactive LISINOPRIL 20 MG TABS 1 tab po at HS KOKI NOPRIL 20 MG TABS 470455 LISINOPRIL Inactive LISINOPRIL-HYDROCHLOROTHIAZIDE 20-12.5 MG TABS 1 tab by mouth da rocky LISINOPRIL-HYDROCHLOROTHIAZIDE 20-12.5 MG TABS 555924 LISINOPRIL-HYDROCHLOROTHIAZIDE Inactive POLYTRIM 15658-8.1 UNIT/ML-% SOLN 1 drop in affected e ye every 3 hours while awake x 7 days POLYTRIM 02917-4.1 UNIT/ML-% SOLN 29655 7 POLYMYXIN B-TRIMETHOPRIM Inactive COUMADIN 4 MG TABS 1 tablet daily COUMADIN 4 MG TABS 180716 WARFARIN SODIUM Inactive CLONIDINE HCL 0.1 MG TABS 1 po bid 7 days, then 1/2 tab po b id 7 days CLONIDINE HCL 0.1 MG TABS 141382 CLONIDINE HCL I nactive ALLOPURINOL 300 MG TABS Take 1 tablet by mouth daily 2 ALLOPURINOL 300 MG TABS 237509 ALLOPURINOL Inactive MECLIZINE HCL 25 MG TAB 1 po tid 3 days, then 1/2 tab tid 3 days MECLIZINE HCL 25 MG TAB 967345 MECLIZINE HCL Inactive LOVENOX 100 MG/ML SC SOLN One injection twice a day 09/15/15 LOVENOX 100 MG/ML SC SOLN 739315 ENOXAPARIN SODIUM Inactive Vital Signs Date Name [...] Acid - Chemistry sodium, serum 136 mmol/L 239-154 5826/07/25 potassium, serum 4.6 mmol/L 3.5-5.2 chloride, serum [...] Ag - Chemistry sodium, serum 141 mmol/L 163-338 1918/07/06 potassium, serum 4.4 mmol/L 3.5-5.2 chloride, serum [...] Panel - Chemistry sodium, serum 137 mmol/L 136-918 4490/11/14 potassium, serum 4.4 mmol/L 3.5-5.2 chloride, serum [...] 8.0 % 4.3-6.0 cholesterol, serum 130 mg/dL 261-025 1481/11/14 triglyceride, serum, fasting 288 mg/dL 30-200 HDL cholesterol, serum 33 mg/dL 32-96 LDL cholesterol, serum 39 mg/dL 0-130 Lab Report: Comp. Metabolic Panel, HGBA1 C, Lipid Panel, Prothrombin Time - Chemistry sodium, serum 136 mmol/L 483-263 0875/12/02 chloride, serum 101 mmol/L 98-107 carbon dioxide, [...] 7.6 % 4.3-6.0 cholesterol, serum 117 mg/dL 067-426 0824/12/02 triglyceride, serum, fasting 226 mg/dL 30-200 HDL cholesterol, serum 30 mg/dL 32-96 LDL cholesterol, serum 42 mg/dL 0-130 potassium, serum 4.4 mmol/L 3.5-5.2 Lab Report: Comp. Metabolic Panel, HGBA1 C, [...] 7.0 % 4.3-6.0 cholesterol, serum 120 mg/dL 751-387 0128/07/06 triglyceride, serum, fasting 186 mg/dL 30-200 HDL [...] 1.0-3.5 Encounters Code Encounter Date Provider Facility CPT-88819 Level 3 Est. Patient 09:37:15 CDT Mitch luis [facility] CPT-57822 Level 3 Est. 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 Patient 13:53:19 SPREADER BOX OPERATOR Mitch luis [facility] CPT-83408 Level 3 Est. Patient 19:19:37 SPREADER BOX OPERATOR Mitch luis [facility] CPT-68887 Level 3 Est. Patient 13:25:53 SPREADER BOX OPERATOR Tavo toure MD [facility] CPT-86071 Level 3 Est. Patient 18:17:28 CDT Mitch Arnol L janelle [facility] CPT-43533 Level 3 Est. Patient 15:22:57 CDT Mitch Arnol luis [facility] CPT-15969 Level 3 Est. Patient 18:21:50 CDT Mitch luis [facility] CPT-19855 Level 3 Est. Patient 18:20:38 CDT Mitch luis [facility] CPT-41054 Level 3 Est. Patient 15:37:55 CDT Mitch Arnol luis [facility] CPT-84053 Level 2 Est. Patient 15:54:44 CDT Carmine benton MD [facility]-99409 Level 3 Est. Patient 21:46:01 SPREADER BOX OPERATOR Mitch luis [facility] CPT-84884 Level 3 Est. Patient 22:15:50 CDT Mitch luis [facility] CPT-57490 Level 3 Est. Patient 10:48:15 CDT Mitch W L janelle [facility] CPT-97897 Level 3 Est. Patient 23:20:57 CDT Tavo toure MD [facility] CPT-59240 Level 3 Est. Patient 16:26:13 CDT Mitch luis [facility] Procedures Code Procedure Name Date Entry Date Standard Desc ription CPT-76934 Venipuncture Draw Fee 10:13:28 SPREADER BOX OPERATOR CPT-53091 Venipuncture Draw Fee 08:31:11 CDT CPT-45204 Aspir/Inject Med Joint 18:17:28 CDT CPT-22664 Venipuncture Draw Fee 10:13:30 CDT CPT-77276 Venipuncture Draw Fee 08:31:43 SPREADER BOX OPERATOR CPT-JTINJ Joint Injection 18:34:50 CDT CPT-50652 Knee 3V 12:25:09 CDT CPT-90214 Venipuncture Draw Fee 12:15:57 CDT CPT-060 Medical Surveillance Exam 21:31:43 CDT 2011 CPT-69495 Venipuncture Draw Fee 08:32:05 SPREADER BOX OPERATOR CPT-OV Office Visit 18:19:06 CDT
--- OUTSIDE RECORDS SUMMARY | 2020-01-18 12:54 | XMS REPORT | Clinical Summary ---
Author Author Admin, Mitch Leon Organization [facility] [employer] Address Unknown Phone Unavailable Allergies, Adverse Reactions, [...] Coronary atherosclerosis of unspecified type of vessel, [place] or graft EDEMA 782.3 Resolved Mitch Urbina [...] 1 tablet by mouth daily AMLODIPINE BESYLATE 02876053526 No Longer Active Joe Williamson APRN Active MITIGARE 0.6 MG ORAL CAPS 2 capsules at onset of gout pain, then take one capsule at 1 hour if symptoms persist. COLCHICINE 59 076592080 Active Mitch Urbina DO Active COUMADIN 1 MG TAB 2 tabs orally daily with the 5mg tab to equal 7mg daily WARFARIN SODIUM 61926224457 Active Mitch Urbina DO Active COLCRYS 0.6 MG TABS 1 tab qid prn gout COLCHICINE 88174200469 Active Norma Sage Active INVOKANA 100 MG ORAL TABS 1 tablet orally daily CANAGLIFLOZIN 51859844719 Active Mitch Urbina DO Active MINOXIDIL 2.5 MG TABS 1 tablet daily for high blood pressure 10/23 MINOXIDIL 03127815354 Active Mitch Urbina DO Active MECLIZINE HCL 25 MG TAB 1 po tid 3 days, then 1/2 tab tid 3 days MECLIZINE HCL 68169579085 No Longer Active Corey SEGURA Active ALLOPURINOL 300 MG TABS Take 1 tablet by mouth daily 2 ALLOPURINOL 14418395211 No Longer Active Corey SEGURA Activ e CLONIDINE HCL 0.1 MG TABS 1 po bid 7 days, then 1/2 tab po b id 7 days CLONIDINE HCL 46916010459 No Longer Active Corey SEGURA Active COUMADIN 5 MG TABS 1 tab PO daily WARFARIN SODIUM 80030037747 Active Mitch Urbina DO Active COUMADIN 4 MG TABS 1 tablet daily WARFARIN SODI UM 51722235172 No Longer Active Corey SEGURA Active POLYTRIM 21200-0.1 UNIT/ML-% SOLN 1 drop in affected e ye every 3 hours while awake x 7 days POLYMYXIN B-TRIMETHOPRIM 30686285994 N o Longer Active Corey SEGURA Active LOSARTAN POTASSIUM-HCTZ 100-12.5 MG TABS 1 by mouth da rocky for high blood pressure LOSARTAN POTASSIUM-HCTZ 16407096399 Active Stephy Urbina DO Active LISINOPRIL-HYDROCHLOROTHIAZIDE 20-12.5 MG TABS 1 tab by mouth da rocky LISINOPRIL-HYDROCHLOROTHIAZIDE 90815453959 No Longer Active Mitch luis DO Active LISINOPRIL 20 MG TABS 1 tab po at HS LISINOPRIL 61077660834 No Longer Active Mitch Urbina DO Active COUMADIN 5 MG TABS 1 by mouth every other day WARFARIN SODIUM 86733836241 No Longer Active Mitch Arnol Carlitos DO Active COUMADIN 6 MG TABS 1 by mouth every other day WARFARIN SODIUM 78662220531 No Longer Active Mitch Urbina DO Active SIMVASTATIN 40 MG TABS 1 tab daily at bedtime S IMVASTATIN 13063887796 Active Mitch Urbina DO Active SIMVASTATIN 20 MG TABS 1 tab daily at bedtime S IMVASTATIN 99498795488 No Longer Active Mitch Urbina DO Active LOVENOX 100 MG/ML SC SOLN One injection twice a day 09/15/15 ENOXAPARIN SODIUM 37362581373 No Longer Active Carmine Navarrete ctive JANUVIA 50 MG TABS Take one by mouth daily DIEGO GLIPTIN PHOSPHATE 30257241853 Active Mitch Urbina DO Active JANUVIA 100 MG TABS 1/2 by mouth every day DIEGO GLIPTIN PHOSPHATE 91419554211 No Longer Active Bijal Segal RN Active METFORMIN HCL 500 MG TABS 2 by mouth twice daily METFORMIN HCL 00397914509 Active Mitch Urbina DO Active GLIMEPIRIDE 4 MG TABS 1 tab po bid GLIMEPIRIDE 288020 68699 Active Mitch Urbina DO Active COLCRYS 0.6 MG TABS 1 po q 6 hours prn gout pain 03/02 COLCHICINE 77543692098 No Longer Active Camila Reese Active LISINOPRIL 5 MG TABS 1 by mouth every day LISIN OPRIL 36567611052 No Longer Active Nguyen Perez Active KLOR-CON 20 MEQ PACK Take one by mouth daily 8 POTASSIUM CHLORIDE 06970778220 No Longer Active Nguyen Perez Active FUROSEMIDE 40 MG TABS 1 by mouth daily FUROSEMI DE 59606721285 No Longer Active Nguyen Perez Active PROVIGIL 200 MG TABS 1/2 tab po q day MODAFINIL 91848 102898 Active Mitch Urbina DO Active PROVIGIL 100 MG TABS Take one by mouth daily MO DAFINIL 46452646252 No Longer Active Mitch Urbina DO Active BACTRIM DS 800-160 MG TAB 1 tab by mouth twice daily 2 TRIMETHOPRIM-SULFAMETHOXAZOLE 94833948013 No Longer Active Renan Hays MD Active FAMOTIDINE 20 MG TABS by mouth twice a day FAMOTI DINE 93646793519 Active Mitch Urbina DO Active ADULT ASPIRIN LOW STRENGTH 81 MG TBDP 1 by mouth every daily ASPIRIN 69127423026 Active Mitch Urbina DO Active METOPROLOL TARTRATE 50 MG TABS 1 by mouth twice daily METOPROLOL TARTRATE 45095562030 Active Mitch Urbina DO Active BACTRIM DS 800-160 MG TAB 1 tab by mouth twice daily 2 BACTRIM DS 800-160 MG TAB 044255 TRIMETHOPRIM-SULFAMETHOXAZOLE Inac tive PROVIGIL 100 MG TABS Take one by mouth daily 4 PROVIGIL 100 MG TABS 769310 MODAFINIL Inactive FUROSEMIDE 40 MG TABS 1 by mouth daily FU ROSEMIDE 40 MG TABS 864231 FUROSEMIDE Inactive KLOR-CON 20 MEQ PACK Take one by mouth daily 8 KLOR-CON 20 MEQ PACK 5603812 POTASSIUM CHLORIDE Inactive LISINOPRIL 5 MG TABS 1 by mouth every day LISINOPRIL 5 MG TABS 613848 LISINOPRIL Inactive COLCRYS 0.6 MG TABS 1 po q 6 hours prn gout pain 03/02 COLCRYS 0.6 MG TABS 895234 COLCHICINE Inactive JANUVIA 100 MG TABS 1/2 by mouth every day JANUVI A 100 MG TABS SITAGLIPTIN PHOSPHATE Inactive SIMVASTATIN 20 MG TABS 1 tab daily at bedtime SIMVASTATIN 20 MG TABS 674586 SIMVASTATIN Inactive COUMADIN 6 MG TABS 1 by mouth every other day COUMADIN 6 MG TABS 647608 WARFARIN SODIUM Inactive COUMADIN 5 MG TABS 1 by mouth every other day COUMADIN 5 MG TABS 227624 WARFARIN SODIUM Inactive LISINOPRIL 20 MG TABS 1 tab po at HS KOKI NOPRIL 20 MG TABS 413651 LISINOPRIL Inactive LISINOPRIL-HYDROCHLOROTHIAZIDE 20-12.5 MG TABS 1 tab by mouth da rocky LISINOPRIL-HYDROCHLOROTHIAZIDE 20-12.5 MG TABS 919095 LISINOPRIL-HYDROCHLOROTHIAZIDE Inactive POLYTRIM 22259-4.1 UNIT/ML-% SOLN 1 drop in affected e ye every 3 hours while awake x 7 days POLYTRIM 43143-9.1 UNIT/ML-% SOLN 49176 7 POLYMYXIN B-TRIMETHOPRIM Inactive COUMADIN 4 MG TABS 1 tablet daily COUMADIN 4 MG TABS 942308 WARFARIN SODIUM Inactive CLONIDINE HCL 0.1 MG TABS 1 po bid 7 days, then 1/2 tab po b id 7 days CLONIDINE HCL 0.1 MG TABS 508573 CLONIDINE HCL I nactive ALLOPURINOL 300 MG TABS Take 1 tablet by mouth daily 2 ALLOPURINOL 300 MG TABS 041280 ALLOPURINOL Inactive MECLIZINE HCL 25 MG TAB 1 po tid 3 days, then 1/2 tab tid 3 days MECLIZINE HCL 25 MG TAB 009781 MECLIZINE HCL Inactive AMLODIPINE BESYLATE 5 MG TABS 1 tablet by mouth daily AMLODIPINE BESYLATE 5 MG TABS 517884 AMLODIPINE BESYLATE Inactive LOVENOX 100 MG/ML SC SOLN One injection twice a day 09/15/15 LOVENOX 100 MG/ML SC SOLN 930953 ENOXAPARIN SODIUM Inactive Vital Signs Date Name [...] ... - Chemistry sodium, serum 144 mmol/L 335-615 3126/06/12 carbon dioxide, venous blood 26.6 mmol/L 21.0-32 [...] CBC - Chemistry cholesterol, serum 136 mg/dL 839-465 5870/08/09 triglyceride, serum, fasting 187 mg/dL 30-200 HDL [...] 1.0-3.5 Encounters Code Encounter Date Provider Facility CPT-02305 Level 4 Est. Patient 09:30:18 CDT Mitch luis [facility] CPT-00270 Level 3 Est. Patient 15:10:14 CDT Joe kamara [facility] CPT-03519 Level 3 Est. Patient 15:03:46 CDT Joe kamara [facility] CPT-64023 Level 3 Est. Patient 14:21:06 CDT Mitch luis [facility] CPT-42955 Level 3 Est. Patient 14:52:06 CDT Joe kamara [facility] CPT-29581 Level 3 Est. Patient 09:34:30 VALET PARKING ATTENDANT Mitch luis [facility] CPT-10634 Level 3 Est. Patient 09:37:15 CDT Mitch W L ee [facility] CPT-21937 Level 3 Est. Patient 17:01:00 VALET PARKING ATTENDANT Mitch W L ee [facility] CPT-73329 Level 3 Est. Patient 13:53:19 VALET PARKING ATTENDANT Mitch W L ee [facility] CPT-05165 Level 3 Est. Patient 19:19:37 VALET PARKING ATTENDANT Mitch W L ee [facility] CPT-58560 Level 3 Est. Patient 13:25:53 VALET PARKING ATTENDANT Tavo toure MD [facility]-33532 Level 3 Est. Patient 18:17:28 CDT Mitch W L ee [facility] CPT-28611 Level 3 Est. Patient 15:22:57 CDT Mitch W L ee [facility]-78186 Level 3 Est. Patient 18:21:50 CDT Mitch W L ee [facility] CPT-15065 Level 3 Est. Patient 18:20:38 CDT Mitch W L ee [facility]-92645 Level 3 Est. Patient 15:37:55 CDT Mitch W L ee [facility] CPT-57096 Level 2 Est. Patient 15:54:44 CDT Carmine benton MD [facility]-47054 Level 3 Est. Patient 21:46:01 VALET PARKING ATTENDANT Mitch W L ee [facility] CPT-23922 Level 3 Est. Patient 22:15:50 CDT Mitch W L ee [facility] CPT-63127 Level 3 Est. Patient 10:48:15 CDT Mitch W L ee [facility] CPT-50104 Level 3 Est. Patient 23:20:57 CDT Tvao toure MD [facility]-08554 Level 3 Est. Patient 16:26:13 CDT Mitch luis DO [facility] Procedures Code Procedure Name Date Entry Date Standard Desc ription CPT-00533 PT/INR - LAB USE ONLY 13:32:49 [employer]ARKING ATTENDANT CPT-48976 Venipuncture Draw Fee 13:32:49 [employer]ET PARKING ATTENDANT CPT-43062 PT/INR - LAB USE ONLY 10:34:49 [employer] PARKING ATTENDANT CPT-06838 Venipuncture Draw Fee 10:34:48 [employer] PARKING ATTENDANT CPT-00723 PT/INR - LAB USE ONLY 09:22:03 [employer] PARKING ATTENDANT CPT-36917 Venipuncture Draw Fee 09:22:02 VALET PARKING ATTENDANT CPT-68885 Hemoccult IFOBT - LAB USE ONLY 10:27:22 CDT CPT-11153 Venipuncture Draw Fee 08:27:08 CDT CPT-14549 Liver Profile - LAB USE ONLY 08:27:07 CDT 2 CPT-41490 Microalbumin - LAB USE ONLY 08:27:07 CDT 20 25/05/09 CPT-96546 PT/INR - LAB USE ONLY 08:27:07 CDT CPT-85544 HGBA1C - LAB USE ONLY 08:27:07 CDT CPT-54815 CBC - LAB USE ONLY 08:27:07 CDT CPT-49659 Venipuncture Draw Fee 11:09:14 CDT CPT-85480 Venipuncture Draw Fee 08:32:21 VALET PARKING ATTENDANT CPT-49895 Venipuncture Draw Fee 09:38:56 VALET PARKING ATTENDANT CPT-23904 No Charge Offi Visit 21:36:07 CDT 1 CPT-89642 Venipuncture Draw Fee 10:13:28 [employer] PARKING ATTENDANT CPT-11112 Venipuncture Draw Fee 08:31:11 CDT CPT-52393 Aspir/Inject Med Joint 18:17:28 CDT CPT-65704 Venipuncture Draw Fee 10:13:30 CDT CPT-17713 Venipuncture Draw Fee 08:31:43 [employer] PARKING ATTENDANT CPT-JTINJ Joint Injection 18:34:50 CDT CPT-24420 Knee 3V 12:25:09 CDT CPT-86441 Venipuncture Draw Fee 12:15:57 CDT CPT-060 Medical Surveillance Exam 21:31:43 CDT 2011 CPT-84110 Venipuncture Draw Fee 08:32:05 VALET PARKING ATTENDANT CPT-OV Office Visit 18:19:06 CDT
--- OUTSIDE RECORDS SUMMARY | 2020-01-18 12:54 | XMS REPORT | Clinical Summary ---
[...] of vessel, [place] or graft EDEMA 782.3 Resolved Mitch Urbina [...] site OLECRANON BURSITIS, RIGHT 726.33 Resolved Br ucpnoce Arnol Urbina DO Olecranon bursitis UNSPECIFIED ANEMIA [...] ORAL TABS 1 tablet orally daily CANAGLIFLOZIN 45898247815 Active Kathie Juan RPT,RMA Active MINOXIDIL 2.5 MG TABS 1 tablet daily for high blood pressure 10/23 MINOXIDIL 80247290046 Active Mitch Arnol Carlitos Active AMLODIPINE BESYLATE 5 MG TABS 1 tablet by mouth daily AMLODIPINE BESYLATE 02692606532 Active Domi Rivera MA Active MECLIZINE HCL 25 MG TAB 1 po tid 3 days, then 1/2 tab tid 3 days MECLIZINE HCL 59423651881 No Longer Active Corey SEGURA Active ALLOPURINOL 300 MG TABS Take 1 tablet by mouth daily 2 ALLOPURINOL 83997356215 No Longer Active Corey SEGURA Activ e CLONIDINE HCL 0.1 MG TABS 1 po bid 7 days, then 1/2 tab po b id 7 days CLONIDINE HCL 17230919227 No Longer Active Corey SEGURA Active COUMADIN 5 MG TABS 1 tab PO daily WARFARIN SODIUM 91233115621 Active Domi Rivera MA Active COUMADIN 4 MG TABS 1 tablet daily WARFARIN SODI UM 58468321175 No Longer Active Corey SEGURA Active POLYTRIM 91524-8.1 UNIT/ML-% SOLN 1 drop in affected e ye every 3 hours while awake x 7 days POLYMYXIN B-TRIMETHOPRIM 11984276444 N o Longer Active Corey SEGURA Active LOSARTAN POTASSIUM-HCTZ 100-12.5 MG TABS 1 by mouth da rocky for high blood pressure LOSARTAN POTASSIUM-HCTZ 07842354995 Active Domi Rivera MA Active LISINOPRIL-HYDROCHLOROTHIAZIDE 20-12.5 MG TABS 1 tab by mouth da rocky LISINOPRIL-HYDROCHLOROTHIAZIDE 24181725026 No Longer Active Mitch luis DO Active LISINOPRIL 20 MG TABS 1 tab po at HS LISINOPRIL 87753918742 No Longer Active Mitch Urbina DO Active COUMADIN 5 MG TABS 1 by mouth every other day WARFARIN SODIUM 75703203432 No Longer Active Mitch Urbina DO Active COUMADIN 6 MG TABS 1 by mouth every other day WARFARIN SODIUM 65323358345 No Longer Active Mitch Urbina DO Active COLCRYS 0.6 MG TABS 1 tab qid prn gout COLCHICINE 92313458146 Active Corey SEGURA Active SIMVASTATIN 40 MG TABS 1 tab daily at bedtime S IMVASTATIN 91588284760 Active Domi Rivera MA Active SIMVASTATIN 20 MG TABS 1 tab daily at bedtime S IMVASTATIN 67315828067 No Longer Active Mitch Urbina DO Active LOVENOX 100 MG/ML SC SOLN One injection twice a day 09/15/15 ENOXAPARIN SODIUM 76635696025 No Longer Active Carmine Navarrete ctive JANUVIA 50 MG TABS Take one by mouth daily DIEGO GLIPTIN PHOSPHATE 84414520883 Active Domi Rivera MA Active JANUVIA 100 MG TABS 1/2 by mouth every day DIEGO GLIPTIN PHOSPHATE 32248597876 No Longer Active Bijal Segal RN Active METFORMIN HCL 500 MG TABS 2 by mouth twice daily METFORMIN HCL 87301576090 Active Domi Rivera MA Active GLIMEPIRIDE 4 MG TABS 1 tab po bid GLIMEPIRIDE 705919 79431 Active Domi Rivera MA Active COLCRYS 0.6 MG TABS 1 po q 6 hours prn gout pain 03/02 COLCHICINE 69942791176 No Longer Active Camila Reese Active LISINOPRIL 5 MG TABS 1 by mouth every day LISIN OPRIL 59341928821 No Longer Active Nguyen Perez Active KLOR-CON 20 MEQ PACK Take one by mouth daily 8 POTASSIUM CHLORIDE 48195690348 No Longer Active Nguyen Perez Active FUROSEMIDE 40 MG TABS 1 by mouth daily FUROSEMI DE 35960909201 No Longer Active Nguyen Perez Active PROVIGIL 200 MG TABS 1/2 tab po q day MODAFINIL 10122 253744 Active Domi Rivera MA Active PROVIGIL 100 MG TABS Take one by mouth daily MO DAFINIL 41604179044 No Longer Active Mitch Urbina DO Active BACTRIM DS 800-160 MG TAB 1 tab by mouth twice daily 2 TRIMETHOPRIM-SULFAMETHOXAZOLE 87837306137 No Longer Active Renan Hays MD Active FAMOTIDINE 20 MG TABS by mouth twice a day FAMOTI DINE 68244462805 Active Mitch Urbina DO Active ADULT ASPIRIN LOW STRENGTH 81 MG TBDP 1 by mouth every daily ASPIRIN 38112444826 Active Micth Urbina DO Active METOPROLOL TARTRATE 50 MG TABS 1 by mouth twice daily METOPROLOL TARTRATE 21475687772 Active Domi Rivera MA Active BACTRIM DS 800-160 MG TAB 1 tab by mouth twice daily 2 BACTRIM DS 800-160 MG TAB 254492 TRIMETHOPRIM-SULFAMETHOXAZOLE Inac tive PROVIGIL 100 MG TABS Take one by mouth daily 4 PROVIGIL 100 MG TABS 785422 MODAFINIL Inactive FUROSEMIDE 40 MG TABS 1 by mouth daily FU ROSEMIDE 40 MG TABS 065507 FUROSEMIDE Inactive KLOR-CON 20 MEQ PACK Take one by mouth daily 8 KLOR-CON 20 MEQ PACK 452844 POTASSIUM CHLORIDE Inactive LISINOPRIL 5 MG TABS 1 by mouth every day LISINOPRIL 5 MG TABS 533598 LISINOPRIL Inactive COLCRYS 0.6 MG TABS 1 po q 6 hours prn gout pain 03/02 COLCRYS 0.6 MG TABS 102965 COLCHICINE Inactive JANUVIA 100 MG TABS 1/2 by mouth every day JANUVI A 100 MG TABS SITAGLIPTIN PHOSPHATE Inactive SIMVASTATIN 20 MG TABS 1 tab daily at bedtime SIMVASTATIN 20 MG TABS 768585 SIMVASTATIN Inactive COUMADIN 6 MG TABS 1 by mouth every other day COUMADIN 6 MG TABS 360288 WARFARIN SODIUM Inactive COUMADIN 5 MG TABS 1 by mouth every other day COUMADIN 5 MG TABS 040200 WARFARIN SODIUM Inactive LISINOPRIL 20 MG TABS 1 tab po at HS KOKI NOPRIL 20 MG TABS 249634 LISINOPRIL Inactive LISINOPRIL-HYDROCHLOROTHIAZIDE 20-12.5 MG TABS 1 tab by mouth da rocky LISINOPRIL-HYDROCHLOROTHIAZIDE 20-12.5 MG TABS 411740 LISINOPRIL-HYDROCHLOROTHIAZIDE Inactive POLYTRIM 56735-5.1 UNIT/ML-% SOLN 1 drop in affected e ye every 3 hours while awake x 7 days POLYTRIM 39271-1.1 UNIT/ML-% SOLN 20032 7 POLYMYXIN B-TRIMETHOPRIM Inactive COUMADIN 4 MG TABS 1 tablet daily COUMADIN 4 MG TABS 270888 WARFARIN SODIUM Inactive CLONIDINE HCL 0.1 MG TABS 1 po bid 7 days, then 1/2 tab po b id 7 days CLONIDINE HCL 0.1 MG TABS 000910 CLONIDINE HCL I nactive ALLOPURINOL 300 MG TABS Take 1 tablet by mouth daily 2 ALLOPURINOL 300 MG TABS 606776 ALLOPURINOL Inactive MECLIZINE HCL 25 MG TAB 1 po tid 3 days, then 1/2 tab tid 3 days MECLIZINE HCL 25 MG TAB 364810 MECLIZINE HCL Inactive LOVENOX 100 MG/ML SC SOLN One injection twice a day 09/15/15 LOVENOX 100 MG/ML SC SOLN 629781 ENOXAPARIN SODIUM Inactive Vital Signs Date Name [...] Range Description Chart Maintenance: Hemoccult added to ks enriqueta - Chemistry occult blood, stool (E&M) [...] Ag - Chemistry sodium, serum 141 mmol/L 275-214 3719/07/06 potassium, serum 4.4 mmol/L 3.5-5.2 chloride, serum [...] - Chem istry sodium, serum 136 mmol/L 266-268 3163/01/14 carbon dioxide, venous blood 25.4 mmol/L 21.0-32 [...] 7.0 % 4.3-6.0 cholesterol, serum 120 mg/dL 709-236 1941/07/06 triglyceride, serum, fasting 186 mg/dL 30-200 HDL [...] 1.0-3.5 Encounters Code Encounter Date Provider Facility CPT-05940 Level 3 Est. Patient 09:34:30 HOUSEKEEPING CLEANER Mitch luis DO [facility] CPT-37403 Level 3 Est. Patient 09:37:15 CDT Mitch W L ee [facility]-43086 Level 3 Est. Patient 17:01:00 HOUSEKEEPING CLEANER Mitch luis [facility] CPT-41255 Level 3 Est. Patient 13:53:19 HOUSEKEEPING CLEANER Mitch Ambrose L janelle [facility] CPT-96196 Level 3 Est. Patient 19:19:37 HOUSEKEEPING CLEANER Mitch W L janelle [facility] CPT-19463 Level 3 Est. Patient 13:25:53 HOUSEKEEPING CLEANER Tavo toure MD [facility]-69374 Level 3 Est. Patient 18:17:28 CDT Mitch W L janelle [facility]-48804 Level 3 Est. Patient 15:22:57 CDT Mitch W L janelle [facility]-28442 Level 3 Est. Patient 18:21:50 CDT Mitch W L janelle [facility]-63317 Level 3 Est. Patient 18:20:38 CDT Mitch W L janelle [facility]-12517 Level 3 Est. Patient 15:37:55 CDT Mitch W L janelle [facility] CPT-92745 Level 2 Est. Patient 15:54:44 CDT Carmine benton MD [facility]-11131 Level 3 Est. Patient 21:46:01 HOUSEKEEPING CLEANER Mitch W L janelle [facility] CPT-71735 Level 3 Est. Patient 22:15:50 CDT Mitch W L ee [facility]-93198 Level 3 Est. Patient 10:48:15 CDT Mitch W L ee [facility]-09697 Level 3 Est. Patient 23:20:57 CDT Tavo toure MD [facility] CPT-94422 Level 3 Est. Patient 16:26:13 CDT Mitch luis DO [facility] Procedures Code Procedure Name Date Entry Date Standard Desc ription CPT-72909 Venipuncture Draw Fee 08:32:21 HOUSEKEEPING CLEANER CPT-23997 Venipuncture Draw Fee 09:38:56 HOUSEKEEPING CLEANER CPT-25333 No Charge Offi Visit 21:36:07 CDT 1 CPT-24821 Venipuncture Draw Fee 10:13:28 HOUSEKEEPING CLEANER CPT-17055 Venipuncture Draw Fee 08:31:11 CDT CPT-46253 Aspir/Inject Med Joint 18:17:28 CDT CPT-18909 Venipuncture Draw Fee 10:13:30 CDT CPT-64180 Venipuncture Draw Fee 08:31:43 HOUSEKEEPING CLEANER CPT-JTINJ Joint Injection 18:34:50 CDT CPT-98196 Knee 3V 12:25:09 CDT CPT-07115 Venipuncture Draw Fee 12:15:57 CDT CPT-060 Medical Surveillance Exam 21:31:43 CDT 2011 CPT-23867 Venipuncture Draw Fee 08:32:05 HOUSEKEEPING CLEANER CPT-OV Office Visit 18:19:06 CDT
--- OUTSIDE RECORDS SUMMARY | 2020-01-18 12:54 | XMS REPORT | Clinical Summary ---
Author Author Admin, Mitch Leon Organization [facility] [place] Address Unknown Phone Unavailable Allergies, Adverse Reactions, [...] Coronary atherosclerosis of unspecified type of vessel, [place] or graft EDEMA 782.3 Resolved Mitch Urbina [...] tab to equal 7mg daily WARFARIN SODIUM 37141987224 Active Mitch Arnol Urbina DO Active COLCRYS 0.6 MG TABS 1 tab qid prn gout COLCHICINE 87747567526 Active Kathie Juan RPT,RMA Active INVOKANA 100 MG ORAL TABS 1 tablet orally daily CANAGLIFLOZIN 67205745682 Active Mitch Arnol Carlitos Active MINOXIDIL 2.5 MG TABS 1 tablet daily for high blood pressure 10/23 MINOXIDIL 31796043860 Active Mitch Urbina DO Active AMLODIPINE BESYLATE 5 MG TABS 1 tablet by mouth daily AMLODIPINE BESYLATE 42934326836 Active Mitch Urbina DO Active MECLIZINE HCL 25 MG TAB 1 po tid 3 days, then 1/2 tab tid 3 days MECLIZINE HCL 47111323910 No Longer Active Corey SEGURA Active ALLOPURINOL 300 MG TABS Take 1 tablet by mouth daily 2 ALLOPURINOL 94192591872 No Longer Active Corey SEGURA Activ e CLONIDINE HCL 0.1 MG TABS 1 po bid 7 days, then 1/2 tab po b id 7 days CLONIDINE HCL 28861962242 No Longer Active Corey SEGURA Active COUMADIN 5 MG TABS 1 tab PO daily WARFARIN SODIUM 97000272045 Active Mitch Urbina DO Active COUMADIN 4 MG TABS 1 tablet daily WARFARIN SODI UM 33162224015 No Longer Active Corey SEGURA Active POLYTRIM 46658-0.1 UNIT/ML-% SOLN 1 drop in affected e ye every 3 hours while awake x 7 days POLYMYXIN B-TRIMETHOPRIM 49988571105 N o Longer Active Corey SEGURA Active LOSARTAN POTASSIUM-HCTZ 100-12.5 MG TABS 1 by mouth da rocky for high blood pressure LOSARTAN POTASSIUM-HCTZ 70479054619 Active Stephy Urbina DO Active LISINOPRIL-HYDROCHLOROTHIAZIDE 20-12.5 MG TABS 1 tab by mouth da rocky LISINOPRIL-HYDROCHLOROTHIAZIDE 88453969108 No Longer Active Mitch luis DO Active LISINOPRIL 20 MG TABS 1 tab po at HS LISINOPRIL 98244652401 No Longer Active Mitch Urbina DO Active COUMADIN 5 MG TABS 1 by mouth every other day WARFARIN SODIUM 73272624672 No Longer Active Mitch Urbina DO Active COUMADIN 6 MG TABS 1 by mouth every other day WARFARIN SODIUM 99262265658 No Longer Active Mitch W Carlitos DO Active SIMVASTATIN 40 MG TABS 1 tab daily at bedtime S IMVASTATIN 07900754095 Active Mitch Urbina DO Active SIMVASTATIN 20 MG TABS 1 tab daily at bedtime S IMVASTATIN 11578149877 No Longer Active Mitch Urbina DO Active LOVENOX 100 MG/ML SC SOLN One injection twice a day 09/15/15 ENOXAPARIN SODIUM 85118452702 No Longer Active Carmine Navarrete ctive JANUVIA 50 MG TABS Take one by mouth daily DIEGO GLIPTIN PHOSPHATE 21590391070 Active Mitch Urbina DO Active JANUVIA 100 MG TABS 1/2 by mouth every day DIEGO GLIPTIN PHOSPHATE 00816397974 No Longer Active Bijal Segal RN Active METFORMIN HCL 500 MG TABS 2 by mouth twice daily METFORMIN HCL 15352749714 Active Mitch Urbina DO Active GLIMEPIRIDE 4 MG TABS 1 tab po bid GLIMEPIRIDE 947018 32532 Active Mitch Urbina DO Active COLCRYS 0.6 MG TABS 1 po q 6 hours prn gout pain 03/02 COLCHICINE 44986730719 No Longer Active Camila Reese Active LISINOPRIL 5 MG TABS 1 by mouth every day LISIN OPRIL 02079043559 No Longer Active Nguyenmolly Perez Active KLOR-CON 20 MEQ PACK Take one by mouth daily 8 POTASSIUM CHLORIDE 25870333811 No Longer Active Nguyen Ana Active FUROSEMIDE 40 MG TABS 1 by mouth daily FUROSEMI DE 68139909230 No Longer Active Nguyen Ana Active PROVIGIL 200 MG TABS 1/2 tab po q day MODAFINIL 03108 309738 Active Mitch Urbina DO Active PROVIGIL 100 MG TABS Take one by mouth daily MO DAFINIL 89032495626 No Longer Active Mitch Urbina DO Active BACTRIM DS 800-160 MG TAB 1 tab by mouth twice daily 2 TRIMETHOPRIM-SULFAMETHOXAZOLE 40166539576 No Longer Active Renan Hays MD Active FAMOTIDINE 20 MG TABS by mouth twice a day FAMOTI ZULEIKA 75095424390 Active Mitch Urbina DO Active ADULT ASPIRIN LOW STRENGTH 81 MG TBDP 1 by mouth every daily ASPIRIN 38972744011 Active Mitch Urbina DO Active METOPROLOL TARTRATE 50 MG TABS 1 by mouth twice daily METOPROLOL TARTRATE 33433668835 Active Mitch Urbina DO Active BACTRIM DS 800-160 MG TAB 1 tab by mouth twice daily 2 BACTRIM DS 800-160 MG TAB 830664 TRIMETHOPRIM-SULFAMETHOXAZOLE Inac tive PROVIGIL 100 MG TABS Take one by mouth daily 4 PROVIGIL 100 MG TABS 725257 MODAFINIL Inactive FUROSEMIDE 40 MG TABS 1 by mouth daily FU ROSEMIDE 40 MG TABS 694297 FUROSEMIDE Inactive KLOR-CON 20 MEQ PACK Take one by mouth daily 8 KLOR-CON 20 MEQ PACK 872649 POTASSIUM CHLORIDE Inactive LISINOPRIL 5 MG TABS 1 by mouth every day LISINOPRIL 5 MG TABS 044301 LISINOPRIL Inactive COLCRYS 0.6 MG TABS 1 po q 6 hours prn gout pain 03/02 COLCRYS 0.6 MG TABS 751130 COLCHICINE Inactive JANUVIA 100 MG TABS 1/2 by mouth every day JANUVI A 100 MG TABS SITAGLIPTIN PHOSPHATE Inactive SIMVASTATIN 20 MG TABS 1 tab daily at bedtime SIMVASTATIN 20 MG TABS 752767 SIMVASTATIN Inactive COUMADIN 6 MG TABS 1 by mouth every other day COUMADIN 6 MG TABS 450305 WARFARIN SODIUM Inactive COUMADIN 5 MG TABS 1 by mouth every other day COUMADIN 5 MG TABS 444058 WARFARIN SODIUM Inactive LISINOPRIL 20 MG TABS 1 tab po at HS KOKI NOPRIL 20 MG TABS 929178 LISINOPRIL Inactive LISINOPRIL-HYDROCHLOROTHIAZIDE 20-12.5 MG TABS 1 tab by mouth da rocky LISINOPRIL-HYDROCHLOROTHIAZIDE 20-12.5 MG TABS 254517 LISINOPRIL-HYDROCHLOROTHIAZIDE Inactive POLYTRIM 32220-2.1 UNIT/ML-% SOLN 1 drop in affected e ye every 3 hours while awake x 7 days POLYTRIM 66849-2.1 UNIT/ML-% SOLN 75159 7 POLYMYXIN B-TRIMETHOPRIM Inactive COUMADIN 4 MG TABS 1 tablet daily COUMADIN 4 MG TABS 617916 WARFARIN SODIUM Inactive CLONIDINE HCL 0.1 MG TABS 1 po bid 7 days, then 1/2 tab po b id 7 days CLONIDINE HCL 0.1 MG TABS 234742 CLONIDINE HCL I nactive ALLOPURINOL 300 MG TABS Take 1 tablet by mouth daily 2 ALLOPURINOL 300 MG TABS 945991 ALLOPURINOL Inactive MECLIZINE HCL 25 MG TAB 1 po tid 3 days, then 1/2 tab tid 3 days MECLIZINE HCL 25 MG TAB 793955 MECLIZINE HCL Inactive LOVENOX 100 MG/ML SC SOLN One injection twice a day 20 09/15/15 LOVENOX 100 MG/ML SC SOLN 931281 ENOXAPARIN SODIUM Inactive Vital Signs Date Name [...] Range Description Chart [facility] - Chemistry occult blood, stool (E&M) Positive [...] Time - Coagulati on prothrombin time (patient) 17.1 SECS s 11.1-13.4 prothrombin time (patient) 14.5 SECS s 11.1-13.4 international normalized ratio (INR) 1.5 1.0-3.5 international normalized ratio (INR) 2.4 1.0-3.5 prothrombin time (patient) 19.9 SECS s 11.1-13.4 international normalized ratio (INR) 2.4 1.0-3.5 international normalized ratio (INR) 2.0 1.0-3.5 prothrombin time (patient) 16.2 SECS s 11.1-13.4 international normalized ratio (INR) 1.8 1.0-3.5 prothrombin time (patient) 15.8 SECS s 11.1-13.4 international normalized ratio (INR) 1.8 1.0-3.5 prothrombin time (patient) 16.9 SECS s 11.1-13.4 international normalized ratio (INR) 2.0 1.0-3.5 international normalized ratio (INR) 1.5 1.0-3.5 prothrombin time (patient) 15.4 SECS s 11.1-13.4 prothrombin time (patient) 18.9 SECS s 11.1-13.4 Encounters Code Encounter Date Provider Facility CPT-50431 Level 3 Est. Patient 14:21:06 CDT Mitch W L janelle [facility] CPT-71421 Level 3 Est. Patient 14:52:06 CDT Joe kamara APRN [facility] CPT-69932 Level 3 Est. Patient 09:34:30 RADIOLOGIC TECHNOLOGIST Mitch W L janelle [facility] CPT-40402 Level 3 Est. Patient 09:37:15 CDT Mitch W L ee [facility] CPT-97011 Level 3 Est. Patient 17:01:00 RADIOLOGIC TECHNOLOGIST Mitch W L janelle [facility] CPT-42450 Level 3 Est. Patient 13:53:19 RADIOLOGIC TECHNOLOGIST Mitch W L janelle [facility] CPT-31998 Level 3 Est. Patient 19:19:37 RADIOLOGIC TECHNOLOGIST Mitch W L ee [facility] CPT-85757 Level 3 Est. Patient 13:25:53 RADIOLOGIC TECHNOLOGIST Tavo toure MD [facility] CPT-95039 Level 3 Est. Patient 18:17:28 CDT Mitch W L ee [facility] CPT-65856 Level 3 Est. Patient 15:22:57 CDT Mitch W L ee [facility] CPT-98902 Level 3 Est. Patient 18:21:50 CDT Mitch W L ee [facility] CPT-65197 Level 3 Est. Patient 18:20:38 CDT Mitch W L ee [facility] CPT-76453 Level 3 Est. Patient 15:37:55 CDT Mitch W L ee [facility] CPT-52148 Level 2 Est. Patient 15:54:44 CDT Carmine benton MD [facility] CPT-72785 Level 3 Est. Patient 21:46:01 RADIOLOGIC TECHNOLOGIST Mitch luis [facility] CPT-74589 Level 3 Est. Patient 22:15:50 CDT Mitch Arnol luis [facility] CPT-65843 Level 3 Est. Patient 10:48:15 CDT Mitch luis [facility] CPT-03668 Level 3 Est. Patient 23:20:57 CDT Tavo toure MD [facility] CPT-65653 Level 3 Est. Patient 16:26:13 CDT Mitch Castellano janelle [facility] Procedures Code Procedure Name Date Entry Date Standard Desc ription CPT-16845 Hemoccult IFOBT - LAB USE ONLY 10:27:22 CDT CPT-35077 Venipuncture Draw Fee 08:27:08 CDT CPT-27578 Liver Profile - LAB USE ONLY 08:27:07 CDT 2 CPT-55249 Microalbumin - LAB USE ONLY 08:27:07 CDT 20 25/05/09 CPT-36203 PT/INR - LAB USE ONLY 08:27:07 CDT CPT-60431 HGBA1C - LAB USE ONLY 08:27:07 CDT CPT-29513 CBC - LAB USE ONLY 08:27:07 CDT CPT-86477 Venipuncture Draw Fee 11:09:14 CDT CPT-81013 Venipuncture Draw Fee 08:32:21 RADIOLOGIC TECHNOLOGIST CPT-13036 Venipuncture Draw Fee 09:38:56 RADIOLOGIC TECHNOLOGIST CPT-81710 No Charge Offi Visit 21:36:07 CDT 1 CPT-11182 Venipuncture Draw Fee 10:13:28 RADIOLOGIC TECHNOLOGIST CPT-27346 Venipuncture Draw Fee 08:31:11 CDT CPT-15978 Aspir/Inject Med Joint 18:17:28 CDT CPT-29836 Venipuncture Draw Fee 10:13:30 CDT CPT-76159 Venipuncture Draw Fee 08:31:43 RADIOLOGIC TECHNOLOGIST CPT-JTINJ Joint Injection 18:34:50 CDT CPT-72550 Knee 3V 12:25:09 CDT CPT-78179 Venipuncture Draw Fee 12:15:57 CDT CPT-060 Medical Surveillance Exam 21:31:43 CDT 2011 CPT-63613 Venipuncture Draw Fee 08:32:05 RADIOLOGIC TECHNOLOGIST CPT-OV Office Visit 18:19:06 CDT
--- OUTSIDE RECORDS SUMMARY | 2020-01-18 12:55 | XMS REPORT | Clinical Summary ---
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 COLCHICINE 59 413035267 Active Mitch Urbina DO Active COUMADIN 1 MG TAB 2 tabs orally daily with the 5mg tab to equal 7mg daily WARFARIN SODIUM 69567674668 Active Mitch Urbina DO Active COLCRYS 0.6 MG TABS 1 tab qid prn gout COLCHICINE 11689267891 Active Norma Cazares Active INVOKANA 100 MG ORAL TABS 1 tablet orally daily CANAGLIFLOZIN 80216294959 Active Brenda Gaymerman Active MINOXIDIL 2.5 MG TABS 1 tablet daily for high blood pressure 10/23 MINOXIDIL 98638660770 Active Ana Wallace Active MECLIZINE HCL 25 MG TAB 1 po tid 3 days, then 1/2 tab tid 3 days MECLIZINE HCL 08047584021 No Longer Active Corey SEGURA Active ALLOPURINOL 300 MG TABS Take 1 tablet by mouth daily 2 ALLOPURINOL 59596686501 No Longer Active Corey SEGURA Activ e CLONIDINE HCL 0.1 MG TABS 1 po bid 7 days, then 1/2 tab po b id 7 days CLONIDINE HCL 94448925626 No Longer Active Corey SEGURA Active COUMADIN 5 MG TABS 1 tab PO daily WARFARIN SODIUM 09815355130 Active Mitch Urbina DO Active COUMADIN 4 MG TABS 1 tablet daily WARFARIN SODI UM 03084387663 No Longer Active Corey SEGURA Active POLYTRIM 82761-5.1 UNIT/ML-% SOLN 1 drop in affected e ye every 3 hours while awake x 7 days POLYMYXIN B-TRIMETHOPRIM 97180664930 N o Longer Active Corey SEGURA Active LOSARTAN POTASSIUM-HCTZ 100-12.5 MG TABS 1 by mouth da [place] for high blood pressure LOSARTAN POTASSIUM-HCTZ 44638059406 Active Stephy Urbina DO Active LISINOPRIL-HYDROCHLOROTHIAZIDE 20-12.5 MG TABS 1 tab by mouth da rocky LISINOPRIL-HYDROCHLOROTHIAZIDE 45432980023 No Longer Active Mitch luis DO Active LISINOPRIL 20 MG TABS 1 tab po at HS LISINOPRIL 96483881041 No Longer Active Mitch Urbina DO Active COUMADIN 5 MG TABS 1 by mouth every other day WARFARIN SODIUM 91345896036 No Longer Active Mitch Urbina DO Active COUMADIN 6 MG TABS 1 by mouth every other day WARFARIN SODIUM 92868839990 No Longer Active Mitch Urbina DO Active SIMVASTATIN 40 MG TABS 1 tab daily at bedtime S IMVASTATIN 36029180776 Active Mitch Urbina DO Active SIMVASTATIN 20 MG TABS 1 tab daily at bedtime S IMVASTATIN 75109844160 No Longer Active Mitch Urbina DO Active LOVENOX 100 MG/ML SC SOLN One injection twice a day 09/15/15 ENOXAPARIN SODIUM 04229769994 No Longer Active Carmine Navarrete ctive JANUVIA 50 MG TABS Take one by mouth daily DIEGO GLIPTIN PHOSPHATE 49849196336 Active Mitch Urbina DO Active JANUVIA 100 MG TABS 1/2 by mouth every day DIEGO GLIPTIN PHOSPHATE 40867347568 No Longer Active Bijal Segal RN Active METFORMIN HCL 500 MG TABS 2 by mouth twice daily METFORMIN HCL 62888000724 Active Mitch Urbina DO Active GLIMEPIRIDE 4 MG TABS 1 tab po bid GLIMEPIRIDE 801219 78191 Active Mitch Urbina DO Active COLCRYS 0.6 MG TABS 1 po q 6 hours prn gout pain 03/02 COLCHICINE 17557191594 No Longer Active Camila Reese Active LISINOPRIL 5 MG TABS 1 by mouth every day LISIN OPRIL 13871408292 No Longer Active Nguyen Perez Active KLOR-CON 20 MEQ PACK Take one by mouth daily 8 POTASSIUM CHLORIDE 03915456446 No Longer Active Nguyen Perez Active FUROSEMIDE 40 MG TABS 1 by mouth daily FUROSEMI DE 41247446659 No Longer Active Nguyen Perez Active PROVIGIL 200 MG TABS 1/2 tab po q day MODAFINIL 12648 658279 Active Kathie Juan RPT,RMA Active PROVIGIL 100 MG TABS Take one by mouth daily MO DAFINIL 37157815035 No Longer Active Mitch Urbina DO Active BACTRIM DS 800-160 MG TAB 1 tab by mouth twice daily 2 TRIMETHOPRIM-SULFAMETHOXAZOLE 02665970624 No Longer Active Renan Hays MD Active FAMOTIDINE 20 MG TABS by mouth twice a day FAMOTI DINE 66398450805 Active Mitch Urbina DO Active ADULT ASPIRIN LOW STRENGTH 81 MG TBDP 1 by mouth every daily ASPIRIN 87596313542 Active Mitch Urbina DO Active METOPROLOL TARTRATE 50 MG TABS 1 by mouth twice daily METOPROLOL TARTRATE 89434822715 Active Mitch Urbina DO Active BACTRIM DS 800-160 MG TAB 1 tab by mouth twice daily 2 BACTRIM DS 800-160 MG TAB 339833 TRIMETHOPRIM-SULFAMETHOXAZOLE Inac tive PROVIGIL 100 MG TABS Take one by mouth daily 4 PROVIGIL 100 MG TABS 773876 MODAFINIL Inactive FUROSEMIDE 40 MG TABS 1 by mouth daily FU ROSEMIDE 40 MG TABS 346061 FUROSEMIDE Inactive KLOR-CON 20 MEQ PACK Take one by mouth daily 8 KLOR-CON 20 MEQ PACK 990283 POTASSIUM CHLORIDE Inactive LISINOPRIL 5 MG TABS 1 by mouth every day LISINOPRIL 5 MG TABS 370159 LISINOPRIL Inactive COLCRYS 0.6 MG TABS 1 po q 6 hours prn gout pain 03/02 COLCRYS 0.6 MG TABS 380944 COLCHICINE Inactive JANUVIA 100 MG TABS 1/2 by mouth every day JANUVI A 100 MG TABS SITAGLIPTIN PHOSPHATE Inactive SIMVASTATIN 20 MG TABS 1 tab daily at bedtime SIMVASTATIN 20 MG TABS 122731 SIMVASTATIN Inactive COUMADIN 6 MG TABS 1 by mouth every other day COUMADIN 6 MG TABS 081476 WARFARIN SODIUM Inactive COUMADIN 5 MG TABS 1 by mouth every other day COUMADIN 5 MG TABS 062917 WARFARIN SODIUM Inactive LISINOPRIL 20 MG TABS 1 tab po at HS KOKI NOPRIL 20 MG TABS 978542 LISINOPRIL Inactive LISINOPRIL-HYDROCHLOROTHIAZIDE 20-12.5 MG TABS 1 tab by mouth da rocky LISINOPRIL-HYDROCHLOROTHIAZIDE 20-12.5 MG TABS 470883 LISINOPRIL-HYDROCHLOROTHIAZIDE Inactive POLYTRIM 89200-4.1 UNIT/ML-% SOLN 1 drop in affected e ye every 3 hours while awake x 7 days POLYTRIM 23639-6.1 UNIT/ML-% SOLN 21800 7 POLYMYXIN B-TRIMETHOPRIM Inactive COUMADIN 4 MG TABS 1 tablet daily COUMADIN 4 MG TABS 898458 WARFARIN SODIUM Inactive CLONIDINE HCL 0.1 MG TABS 1 po bid 7 days, then 1/2 tab po b id 7 days CLONIDINE HCL 0.1 MG TABS 119851 CLONIDINE HCL I nactive ALLOPURINOL 300 MG TABS Take 1 tablet by mouth daily 2 ALLOPURINOL 300 MG TABS 290127 ALLOPURINOL Inactive MECLIZINE HCL 25 MG TAB 1 po tid 3 days, then 1/2 tab tid 3 days MECLIZINE HCL 25 MG TAB 199791 MECLIZINE HCL Inactive AMLODIPINE BESYLATE 5 MG TABS 1 tablet by mouth daily AMLODIPINE BESYLATE 5 MG TABS 299750 AMLODIPINE BESYLATE Inactive LOVENOX 100 MG/ML SC SOLN One injection twice a day 09/15/15 LOVENOX 100 MG/ML SC SOLN 721396 ENOXAPARIN SODIUM Inactive Vital Signs Date Name [...] Range Description Chart Maintenance: hemoccult added to [facility] - Chemistry occult blood, stool (E&M) Positive Lab Report: HGBA1C - Chemistry hemoglobin A1C, blood, as % of total hemoglobin 6.6 % 4.3-6.0 Lab Report: Lipid Panel, HEPATIC PANEL, MICROALB/CREAT W/RATIO, HGBA1C, CBC - Chemistry cholesterol, serum 136 mg/dL 545-742 8757/08/09 triglyceride, serum, fasting 187 mg/dL 30-200 HDL [...] 1.0-3.5 Encounters Code Encounter Date Provider Facility CPT-10987 Level 3 Est. Patient 15:10:14 CDT Joe kamara [facility] CPT-43127 Level 3 Est. Patient 15:03:46 CDT Joe kamara [facility] CPT-42064 Level 3 Est. Patient 14:21:06 CDT Mitch luis [facility] CPT-83395 Level 3 Est. Patient 14:52:06 CDT Joe kamara [facility] CPT-88010 Level 3 Est. Patient 09:34:30 LOADING UNIT OPERATOR Mitch luis [facility] CPT-87792 Level 3 Est. Patient 09:37:15 CDT Mitch luis [facility] CPT-01232 Level 3 Est. Patient 17:01:00 LOADING UNIT OPERATOR Mitch luis [facility] CPT-95764 Level 3 Est. Patient 13:53:19 LOADING UNIT OPERATOR Mitch luis [facility] CPT-48523 Level 3 Est. Patient 19:19:37 LOADING UNIT OPERATOR Mitch luis [facility] CPT-07866 Level 3 Est. Patient 13:25:53 LOADING UNIT OPERATOR Tavo toure MD [facility] CPT-77326 Level 3 Est. Patient 18:17:28 CDT Mitch luis [facility] CPT-31213 Level 3 Est. Patient 15:22:57 CDT Mitch Arnol luis DO [facility] CPT-48901 Level 3 Est. Patient 18:21:50 CDT Mitch W L janelle [facility] CPT-43479 Level 3 Est. Patient 18:20:38 CDT Mitch Arnol luis [facility] CPT-51643 Level 3 Est. Patient 15:37:55 CDT Mitch Arnol luis [facility] CPT-98984 Level 2 Est. Patient 15:54:44 CDT Carmine benton MD [facility] CPT-80424 Level 3 Est. Patient 21:46:01 LOADING UNIT OPERATOR Mitch luis [facility] CPT-29649 Level 3 Est. Patient 22:15:50 CDT Mitch Arnol luis [facility] CPT-55261 Level 3 Est. Patient 10:48:15 CDT Mitch luis [facility] CPT-14998 Level 3 Est. Patient 23:20:57 CDT Tavo toure MD [facility] CPT-21091 Level 3 Est. Patient 16:26:13 CDT Mitch Castellano janelle [facility] Procedures Code Procedure Name Date Entry Date Standard Desc ription CPT-98309 PT/INR - LAB USE ONLY 13:32:49 LOADING UNIT OPERATOR CPT-10723 Venipuncture Draw Fee 13:32:49 LOADING UNIT OPERATOR CPT-49544 PT/INR - LAB USE ONLY 10:34:49 LOADING UNIT OPERATOR CPT-84269 Venipuncture Draw Fee 10:34:48 LOADING UNIT OPERATOR CPT-88825 PT/INR - LAB USE ONLY 09:22:03 LOADING UNIT OPERATOR CPT-09982 Venipuncture Draw Fee 09:22:02 LOADING UNIT OPERATOR CPT-66178 Hemoccult IFOBT - LAB USE ONLY 10:27:22 CDT CPT-46750 Venipuncture Draw Fee 08:27:08 CDT CPT-75368 Liver Profile - LAB USE ONLY 08:27:07 CDT 2 CPT-06712 Microalbumin - LAB USE ONLY 08:27:07 CDT 20 25/05/09 CPT-48944 PT/INR - LAB USE ONLY 08:27:07 CDT CPT-34505 HGBA1C - LAB USE ONLY 08:27:07 CDT CPT-37423 CBC - LAB USE ONLY 08:27:07 CDT CPT-21696 Venipuncture Draw Fee 11:09:14 CDT CPT-73442 Venipuncture Draw Fee 08:32:21 LOADING UNIT OPERATOR CPT-13089 Venipuncture Draw Fee 09:38:56 LOADING UNIT OPERATOR CPT-61315 No Charge Offi Visit 21:36:07 CDT 1 CPT-08885 Venipuncture Draw Fee 10:13:28 LOADING UNIT OPERATOR CPT-78415 Venipuncture Draw Fee 08:31:11 CDT CPT-48352 Aspir/Inject Med Joint 18:17:28 CDT CPT-39890 Venipuncture Draw Fee 10:13:30 CDT CPT-90983 Venipuncture Draw Fee 08:31:43 LOADING UNIT OPERATOR CPT-JTINJ Joint Injection 18:34:50 CDT CPT-31245 Knee 3V 12:25:09 CDT CPT-12799 Venipuncture Draw Fee 12:15:57 CDT CPT-060 Medical Surveillance Exam 21:31:43 CDT 2011 CPT-89128 Venipuncture Draw Fee 08:32:05 LOADING UNIT OPERATOR CPT-OV Office Visit 18:19:06 CDT
--- OUTSIDE RECORDS SUMMARY | 2020-01-18 12:55 | XMS REPORT | Clinical Summary ---
Author Author Admin, Mitch Leon Organization [facility] Address Unknown Phone Unavailable Allergies, Adverse [...] atherosclerosis of unspecified type of vessel, [place] or graft EDEMA 782.3 Resolved Mitch Urbina [...] by mouth twice a day 2017 FAMOTIDINE 77778478259 No Longer Active Mitch Urbina DO Active COLCRYS 0.6 MG ORAL TABLET 1 tab qid prn gout C OLCHICINE 79835460483 No Longer Active Mitch Urbina DO Active GLIMEPIRIDE 2 MG ORAL TABLET 1 po BID GLIMEPIRID E 34169464139 Active Renee Oconnor IP ARCHITECT Active KEFLEX 500 MG ORAL CAPSULE 1 po qid CEPHALEXI N 46124993763 No Longer Active Mitch Urbina DO Active LOSARTAN POTASSIUM 100 MG ORAL TABLET 1 pill by mouth daily, for blood pressure LOSARTAN POTASSIUM 41069722014 Active Mitch Urbina DO Active AMLODIPINE BESYLATE 5 MG ORAL TABLET 1 tablet by mouth daily 201 01/20/04 AMLODIPINE BESYLATE 79999661794 No Longer Active Joe fulton APRN Active MITIGARE 0.6 MG ORAL CAPSULE 2 capsules at onset of go ut pain, then take one capsule at 1 hour if symptoms persist. COLCHICINE 59 795764968 Active Mitch Urbina DO Active COUMADIN 1 MG ORAL TABLET 2 tabs orally daily with the 5mg tab to equal 7mg daily WARFARIN SODIUM 75897655722 Active Ana Wallace Active INVOKANA 100 MG ORAL TABLET 1 tablet orally daily CANAGLIFLOZIN 75414000810 Active Mitch Urbina DO Active MINOXIDIL 2.5 MG ORAL TABLET 1 tablet daily for high blood press ure MINOXIDIL 57741438720 Active Mitch Urbina DO Active MECLIZINE HCL 25 MG ORAL TABLET 1 po tid 3 days, then 1/2 ta b tid 3 days MECLIZINE HCL 12592450944 No Longer Active Corey SEGURA Active ALLOPURINOL 300 MG ORAL TABLET Take 1 tablet by mouth daily 2012 ALLOPURINOL 20605027085 No Longer Active Corey SEGURA Active CLONIDINE HCL 0.1 MG ORAL TABLET 1 po bid 7 days, then 1/2 t ab po bid 7 days CLONIDINE HCL 12827086187 No Longer Active Corey SEGURA Active COUMADIN 5 MG ORAL TABLET 1 tab PO daily WARFAR IN SODIUM 64027466585 Active Mitch Urbina DO Active COUMADIN 4 MG ORAL TABLET 1 tablet daily WARFAR IN SODIUM 28127421983 No Longer Active Corey SEGURA Active POLYTRIM 29155-9.1 UNIT/ML-% OPHTHALMIC SOLUTION 1 rui p in affected eye every 3 hours while awake x 7 days POLYMYXIN B-TRIMETHOP RIM 49977624415 No Longer Active Corey SEGURA Active LOSARTAN POTASSIUM-HCTZ 100-12.5 MG ORAL TABLET 1 by m outh daily for high blood pressure LOSARTAN POTASSIUM-HCTZ 57014083475 No Longer A ctive Mitch Urbina DO Active LISINOPRIL-HYDROCHLOROTHIAZIDE 20-12.5 MG ORAL TABLET 1 tab by m outh daily LISINOPRIL-HYDROCHLOROTHIAZIDE 94357842334 No Longer Active Mitch Urbina DO Active LISINOPRIL 20 MG ORAL TABLET 1 tab po at HS LIS INOPRIL 64603479403 No Longer Active Mitch Urbina DO Active COUMADIN 5 MG ORAL TABLET 1 by mouth every other day 2 WARFARIN SODIUM 40491511626 No Longer Active Mitch Urbina DO Active COUMADIN 6 MG ORAL TABLET 1 by mouth every other day 2 WARFARIN SODIUM 55444746694 No Longer Active Mitch Urbina DO Active SIMVASTATIN 40 MG ORAL TABLET 1 tab daily at bedtime SIMVASTATIN 33808038771 Active Mitch Urbina DO Active SIMVASTATIN 20 MG ORAL TABLET 1 tab daily at bedtime 2 SIMVASTATIN 26573524094 No Longer Active Mitch Urbina DO Active LOVENOX 100 MG/ML SUBCUTANEOUS SOLUTION One injection twice a da y ENOXAPARIN SODIUM 90462423676 No Longer Active Carmine Yusuf MD Active JANUVIA 50 MG ORAL TABLET Take one by mouth daily SITAGLIPTIN PHOSPHATE 80562852631 Active Mitch W Carlitos DO Active JANUVIA 100 MG ORAL TABLET 1/2 by mouth every day 2011 SITAGLIPTIN PHOSPHATE 84664509364 No Longer Active Bijal Segal RN Acti ve METFORMIN HCL 500 MG ORAL TABLET 2 by mouth twice daily METFORMIN HCL 27724968510 Active Mitch Urbina DO Active COLCRYS 0.6 MG ORAL TABLET 1 po q 6 hours prn gout pain COLCHICINE 53566120156 No Longer Active Camila Reese Active LISINOPRIL 5 MG ORAL TABLET 1 by mouth every day 11/17 LISINOPRIL 96080084192 No Longer Active Nguyen Perez Active KLOR-CON 20 MEQ ORAL PACKET Take one by mouth daily 09/10/08 POTASSIUM CHLORIDE 98591141052 No Longer Active Nguyen Perez Active FUROSEMIDE 40 MG ORAL TABLET 1 by mouth daily F UROSEMIDE 13352490209 No Longer Active Nguyen Perez Active PROVIGIL 200 MG ORAL TABLET 1/2 tab po q day MODA FINIL 83051275628 Active Renee Elvin BURNETTN Active PROVIGIL 100 MG ORAL TABLET Take one by mouth daily 08/20/04 MODAFINIL 97577704557 No Longer Active Mitch Urbina DO Active BACTRIM DS 800-160 MG ORAL TABLET 1 tab by mouth twice daily 201 10/19/09 TRIMETHOPRIM-SULFAMETHOXAZOLE 18836885008 No Longer Active Elian Hays MD Active ADULT ASPIRIN LOW STRENGTH 81 MG ORAL TABLET DISINTEGR ATING 1 by mouth every daily ASPIRIN 47480799585 Active Mitch Urbina DO Ac tive METOPROLOL TARTRATE 50 MG ORAL TABLET 1 by mouth twice daily METOPROLOL TARTRATE 03540287877 Active Mitch Urbina DO Active BACTRIM DS 800-160 MG ORAL TABLET 1 tab by mouth twice daily 201 10/19/09 BACTRIM DS 800-160 MG ORAL TABLET 750895 TRIMETHOPRIM-SULFAMETHOXAZOLE Inactive PROVIGIL 100 MG ORAL TABLET Take one by mouth daily 20 08/20/04 PROVIGIL 100 MG ORAL TABLET 940427 MODAFINIL Inactive FUROSEMIDE 40 MG ORAL TABLET 1 by mouth daily FUROSEMIDE 40 MG ORAL TABLET 602064 FUROSEMIDE Inactive KLOR-CON 20 MEQ ORAL PACKET Take one by mouth daily 09/10/08 KLOR- CON 20 MEQ ORAL PACKET 4702850 POTASSIUM CHLORIDE Inactive LISINOPRIL 5 MG ORAL TABLET 1 by mouth every day 11/17 LISINOPRIL 5 MG ORAL TABLET 271122 LISINOPRIL Inactive COLCRYS 0.6 MG ORAL TABLET 1 po q 6 hours prn gout pain COLCRYS 0.6 MG ORAL TABLET 368225 COLCHICINE Inactive JANUVIA 100 MG ORAL TABLET 1/2 by mouth every day 2011 JANUVIA 100 MG ORAL TABLET SITAGLIPTIN PHOSPHATE Inactive SIMVASTATIN 20 MG ORAL TABLET 1 tab daily at bedtime 2 SIMVASTATIN 20 MG ORAL TABLET 926375 SIMVASTATIN Inactive COUMADIN 6 MG ORAL TABLET 1 by mouth every other day COUMADIN 6 MG ORAL TABLET 149085 WARFARIN SODIUM Inactive COUMADIN 5 MG ORAL TABLET 1 by mouth every other day 2 COUMADIN 5 MG ORAL TABLET 848451 WARFARIN SODIUM Inactive LISINOPRIL 20 MG ORAL TABLET 1 tab po at HS LISINOPRIL 20 MG ORAL TABLET 047418 LISINOPRIL Inactive LISINOPRIL-HYDROCHLOROTHIAZIDE 20-12.5 MG ORAL TABLET 1 tab by m outh daily LISINOPRIL-HYDROCHLOROTHIAZIDE 20-12.5 MG ORAL TABLET 952116 LISINOPRIL-HYDROCHLOROTHIAZIDE Inactive POLYTRIM 24103-7.1 UNIT/ML-% OPHTHALMIC SOLUTION 1 rui p in affected eye every 3 hours while awake x 7 days POLYTRIM 1000 0-0.1 UNIT/ML-% OPHTHALMIC SOLUTION 444234 POLYMYXIN B-TRIMETHOPRIM Inactive COUMADIN 4 MG ORAL TABLET 1 tablet daily COUMADIN 4 MG ORAL TABLET 399978 WARFARIN SODIUM Inactive CLONIDINE HCL 0.1 MG ORAL TABLET 1 po bid 7 days, then 1/2 t ab po bid 7 days CLONIDINE HCL 0.1 MG ORAL TABLET 535440 CLONIDIN E HCL Inactive ALLOPURINOL 300 MG ORAL TABLET Take 1 tablet by mouth daily 2012 ALLOPURINOL 300 MG ORAL TABLET 150732 ALLOPURINOL I nactive MECLIZINE HCL 25 MG ORAL TABLET 1 po tid 3 days, then 1/2 ta b tid 3 days MECLIZINE HCL 25 MG ORAL TABLET 139601 MECLIZINE HCL Inactive AMLODIPINE BESYLATE 5 MG ORAL TABLET 1 tablet by mouth daily 201 01/20/04 AMLODIPINE BESYLATE 5 MG ORAL TABLET 813493 AMLODIPINE BESYLATE Inactive KEFLEX 500 MG ORAL CAPSULE 1 po qid K EFLEX 500 MG ORAL CAPSULE 059833 CEPHALEXIN Inactive COLCRYS 0.6 MG ORAL TABLET 1 tab qid prn gout COLCRYS 0.6 MG ORAL TABLET 466846 COLCHICINE Inactive FAMOTIDINE 20 MG ORAL TABLET by mouth twice a day 2017 FAMOTIDINE 20 MG ORAL TABLET 936120 FAMOTIDINE Inactive LOVENOX 100 MG/ML SUBCUTANEOUS SOLUTION One injection twice a da y LOVENOX 100 MG/ML SUBCUTANEOUS SOLUTION 545610 ENOXAPAR IN SODIUM Inactive Vital Signs Date [...] - Chem istry sodium, serum 139 mmol/L 811-648 3287/07/17 potassium, serum 4.2 mmol/L 3.5-5.2 chloride, serum 102 mmol/L 98-107 carbon dioxide, venous blood 28.9 mmol/L 21.0-32 .0 blood glucose 211 mg/dL 65-110 calcium, serum 10.6 mg/dL 8.5-10.1 urea nitrogen, blood 29 mg/dL 7-18 creatinine, serum 1.24 mg/dL 0.60-1.30 sodium, serum 141 mmol/L 218-083 0082/08/07 potassium, serum 4.5 mmol/L 3.5-5.2 chloride, serum [...] ... - Chemistry sodium, serum 144 mmol/L 778-819 4266/06/12 carbon dioxide, venous blood 26.6 mmol/L 21.0-32 [...] HGBA1C - Chemistry cholesterol, serum 136 mg/dL 027-357 2808/12/06 triglyceride, serum, fasting 247 mg/dL 30-200 HDL cholesterol, serum 41 mg/dL 32-60 LDL cholesterol, serum 46 mg/dL 0-130 aspartate aminotransferase (SGOT), serum 22 U/L 15-37 alanine aminotransferase (SGPT), serum 30 U/L 12-78 bilirubin, serum, total 0.80 mg/dL 0.00-1.00 hemoglobin A1C, blood, as % of total hemoglobin 6.4 % 4.3-6.0 Encounters Code Encounter Date Provider Facility CPT-27477 Level 3 Est. Patient 18:25:53 CDT Mitch luis [facility] CPT-74171 Level 3 Est. Patient 19:43:34 CDT Mitch Castellano [facility] CPT-38394 Level 4 Est. Patient 09:30:18 CDT Mitch luis [facility] CPT-90902 Level 3 Est. Patient 15:10:14 CDT Joe kamara [facility] [place] CPT-91019 Level 3 Est. Patient 15:03:46 CDT Joe kamara [facility] [place] [facility] [place] CPT-26477 Level 3 Est. Patient 14:21:06 CDT Mitch luis [facility] CPT-59675 Level 3 Est. Patient 14:52:06 [facility] 3 Est[facility] Patient 09:34:30 DATABASES SOFTWARE CONSULTANT Mitch Ambrose L janelle [facility]-36130 Level 3 Est. Patient 09:37:15 CDT Mitch W L janelle [facility]-07855 Level 3 Est. Patient 17:01:00 DATABASES SOFTWARE CONSULTANT Mitch W L janelle [facility] CPT-22706 Level 3 Est. Patient 13:53:19 DATABASES SOFTWARE CONSULTANT Mitch W L janelle [facility] CPT-48898 Level 3 Est. Patient 19:19:37 DATABASES SOFTWARE CONSULTANT Mitch W L janelle [facility] CPT-25875 Level 3 Est. Patient 13:25:53 DATABASES SOFTWARE CONSULTANT Tavo toure MD [facility]-58281 Level 3 Est. Patient 18:17:28 CDT Mitch Ambrose L janelle [facility] CPT-11808 Level 3 Est. Patient 15:22:57 CDT Mitch W L janelle [facility]-81043 Level 3 Est. Patient 18:21:50 CDT Mitch W L janelle [facility] CPT-79166 Level 3 Est. Patient 18:20:38 CDT Mitch Arnol L janelle [facility]-70118 Level 3 Est. Patient 15:37:55 CDT Mitch W L janelle [facility] CPT-68102 Level 2 Est. Patient 15:54:44 CDT Carmine benton MD [facility]-04722 Level 3 Est. Patient 21:46:01 DATABASES SOFTWARE CONSULTANT Mitch W L janelle [facility] CPT-32013 Level 3 Est. Patient 22:15:50 CDT Mitch W L ee [facility] CPT-21163 Level 3 Est. Patient 10:48:15 CDT Mitch luis [facility] CPT-95665 Level 3 Est. Patient 23:20:57 CDT Tavo toure MD [facility] CPT-36696 Level 3 Est. Patient 16:26:13 CDT Mitch luis [facility] Procedures Code Procedure Name Date Entry Date Standard Desc ription CPT-JTINJ Asp/Joint Injection 18:47:02 CDT CPT-88778 Venipuncture Draw Fee 09:26:17 CDT CPT-61327 PT/INR - LAB USE ONLY 13:32:49 DATABASES SOFTWARE CONSULTANT CPT-87439 Venipuncture Draw Fee 13:32:49 DATABASES SOFTWARE CONSULTANT CPT-06862 PT/INR - LAB USE ONLY 10:34:49 DATABASES SOFTWARE CONSULTANT CPT-23736 Venipuncture Draw Fee 10:34:48 DATABASES SOFTWARE CONSULTANT CPT-78375 PT/INR - LAB USE ONLY 09:22:03 DATABASES SOFTWARE CONSULTANT CPT-80193 Venipuncture Draw Fee 09:22:02 DATABASES SOFTWARE CONSULTANT CPT-77048 Hemoccult IFOBT - LAB USE ONLY 10:27:22 CDT CPT-86463 Venipuncture Draw Fee 08:27:08 CDT CPT-40166 Liver Profile - LAB USE ONLY 08:27:07 CDT 2 CPT-07826 Microalbumin - LAB USE ONLY 08:27:07 CDT 20 25/05/09 CPT-90874 PT/INR - LAB USE ONLY 08:27:07 CDT CPT-18310 HGBA1C - LAB USE ONLY 08:27:07 CDT CPT-49568 CBC - LAB USE ONLY 08:27:07 CDT CPT-54660 Venipuncture Draw Fee 11:09:14 CDT CPT-17408 Venipuncture Draw Fee 08:32:21 DATABASES SOFTWARE CONSULTANT CPT-51433 Venipuncture Draw Fee 09:38:56 DATABASES SOFTWARE CONSULTANT CPT-23883 No Charge Offi Visit 21:36:07 CDT 1 CPT-68424 Venipuncture Draw Fee 10:13:28 DATABASES SOFTWARE CONSULTANT CPT-25024 Venipuncture Draw Fee 08:31:11 CDT CPT-25975 Aspir/Inject Med Joint 18:17:28 CDT CPT-80170 Venipuncture Draw Fee 10:13:30 CDT CPT-26486 Venipuncture Draw Fee 08:31:43 DATABASES SOFTWARE CONSULTANT CPT-JTINJ Joint Injection 18:34:50 CDT CPT-01455 Knee 3V 12:25:09 CDT CPT-38689 Venipuncture Draw Fee 12:15:57 CDT CPT-060 Medical Surveillance Exam 21:31:43 CDT 2011 CPT-00167 Venipuncture Draw Fee 08:32:05 DATABASES SOFTWARE CONSULTANT CPT-OV Office Visit 18:19:06 CDT
--- OUTSIDE RECORDS SUMMARY | 2020-01-18 12:55 | XMS REPORT | Clinical Summary ---
Author Author Admin, Mitch Leon Organization [facility] Address Unknown Phone Unavailable Allergies, Adverse Reactions, [...] Coronary atherosclerosis of unspecified type of vessel, [place] or graft EDEMA 782.3 Resolved Mitch Urbina [...] 1 hour if symptoms persist. COLCHICINE 59 708210144 Active Mitch Urbina DO Active COUMADIN 1 MG TAB 2 tabs orally daily with the 5mg tab to equal 7mg daily WARFARIN SODIUM 95961915399 Active Mitch Urbina DO Active COLCRYS 0.6 MG TABS 1 tab qid prn gout COLCHICINE 96708943801 Active Norma Cazares Active INVOKANA 100 MG ORAL TABS 1 tablet orally daily CANAGLIFLOZIN 16040210450 Active Mitch Urbina DO Active MINOXIDIL 2.5 MG TABS 1 tablet daily for high blood pressure 10/23 MINOXIDIL 24486402207 Active Ana Wallace Active AMLODIPINE BESYLATE 5 MG TABS 1 tablet by mouth daily AMLODIPINE BESYLATE 06448859153 Active Mitch Urbina DO Active MECLIZINE HCL 25 MG TAB 1 po tid 3 days, then 1/2 tab tid 3 days MECLIZINE HCL 36476856168 No Longer Active Corey SEGURA Active ALLOPURINOL 300 MG TABS Take 1 tablet by mouth daily 2 ALLOPURINOL 75853351317 No Longer Active Corey SEGURA Activ e CLONIDINE HCL 0.1 MG TABS 1 po bid 7 days, then 1/2 tab po b id 7 days CLONIDINE HCL 89736279586 No Longer Active Corey SEGURA Active COUMADIN 5 MG TABS 1 tab PO daily WARFARIN SODIUM 99807792198 Active Mitch Urbina DO Active COUMADIN 4 MG TABS 1 tablet daily WARFARIN SODI UM 03867821603 No Longer Active Corey SEGURA Active POLYTRIM 00958-0.1 UNIT/ML-% SOLN 1 drop in affected e ye every 3 hours while awake x 7 days POLYMYXIN B-TRIMETHOPRIM 76720679899 N o Longer Active Corey SEGURA Active LOSARTAN POTASSIUM-HCTZ 100-12.5 MG TABS 1 by mouth da [place] for high blood pressure LOSARTAN POTASSIUM-HCTZ 48132588372 Active Stephy Urbina DO Active LISINOPRIL-HYDROCHLOROTHIAZIDE 20-12.5 MG TABS 1 tab by mouth da rocky LISINOPRIL-HYDROCHLOROTHIAZIDE 92113079641 No Longer Active Mitch luis DO Active LISINOPRIL 20 MG TABS 1 tab po at HS LISINOPRIL 34959083396 No Longer Active Mitch Urbina DO Active COUMADIN 5 MG TABS 1 by mouth every other day WARFARIN SODIUM 74345647367 No Longer Active Mitch W Carlitos DO Active COUMADIN 6 MG TABS 1 by mouth every other day WARFARIN SODIUM 24784879399 No Longer Active Mitch Urbina DO Active SIMVASTATIN 40 MG TABS 1 tab daily at bedtime S IMVASTATIN 91006153421 Active Mitch Urbina DO Active SIMVASTATIN 20 MG TABS 1 tab daily at bedtime S IMVASTATIN 42812795795 No Longer Active Mitch Urbina DO Active LOVENOX 100 MG/ML SC SOLN One injection twice a day 09/15/15 ENOXAPARIN SODIUM 64585142959 No Longer Active Carmine Navarrete ctive JANUVIA 50 MG TABS Take one by mouth daily DIEGO GLIPTIN PHOSPHATE 58399623038 Active Mitch Urbina DO Active JANUVIA 100 MG TABS 1/2 by mouth every day DIEGO GLIPTIN PHOSPHATE 86953526254 No Longer Active Bijal Segal RN Active METFORMIN HCL 500 MG TABS 2 by mouth twice daily METFORMIN HCL 65044570604 Active Mitch Urbina DO Active GLIMEPIRIDE 4 MG TABS 1 tab po bid GLIMEPIRIDE 971769 33151 Active Mitch Arnol Carlitos DO Active COLCRYS 0.6 MG TABS 1 po q 6 hours prn gout pain 03/02 COLCHICINE 87708448429 No Longer Active Camila Reese Active LISINOPRIL 5 MG TABS 1 by mouth every day LISIN OPRIL 87863263915 No Longer Active Nguyenmolly Perez Active KLOR-CON 20 MEQ PACK Take one by mouth daily 8 POTASSIUM CHLORIDE 36291871585 No Longer Active Nguyenmolly Perez Active FUROSEMIDE 40 MG TABS 1 by mouth daily FUROSEMI DE 30525365521 No Longer Active Nguyenmolly Perez Active PROVIGIL 200 MG TABS 1/2 tab po q day MODAFINIL 77410 521318 Active Kathie Juan RPT,RMA Active PROVIGIL 100 MG TABS Take one by mouth daily MO DAFINIL 53083927692 No Longer Active Mitch Urbina DO Active BACTRIM DS 800-160 MG TAB 1 tab by mouth twice daily 2 TRIMETHOPRIM-SULFAMETHOXAZOLE 86861178879 No Longer Active Renan Hays MD Active FAMOTIDINE 20 MG TABS by mouth twice a day FAMOTI DINE 10900679158 Active Mitch Urbina DO Active ADULT ASPIRIN LOW STRENGTH 81 MG TBDP 1 by mouth every daily ASPIRIN 08491891893 Active Mitch Urbina DO Active METOPROLOL TARTRATE 50 MG TABS 1 by mouth twice daily METOPROLOL TARTRATE 23203572952 Active Mitch Urbina DO Active BACTRIM DS 800-160 MG TAB 1 tab by mouth twice daily 2 BACTRIM DS 800-160 MG TAB 615494 TRIMETHOPRIM-SULFAMETHOXAZOLE Inac tive PROVIGIL 100 MG TABS Take one by mouth daily 4 PROVIGIL 100 MG TABS 636538 MODAFINIL Inactive FUROSEMIDE 40 MG TABS 1 by mouth daily FU ROSEMIDE 40 MG TABS 646218 FUROSEMIDE Inactive KLOR-CON 20 MEQ PACK Take one by mouth daily 8 KLOR-CON 20 MEQ PACK 577636 POTASSIUM CHLORIDE Inactive LISINOPRIL 5 MG TABS 1 by mouth every day LISINOPRIL 5 MG TABS 659451 LISINOPRIL Inactive COLCRYS 0.6 MG TABS 1 po q 6 hours prn gout pain 03/02 COLCRYS 0.6 MG TABS 778251 COLCHICINE Inactive JANUVIA 100 MG TABS 1/2 by mouth every day JANUVI A 100 MG TABS SITAGLIPTIN PHOSPHATE Inactive SIMVASTATIN 20 MG TABS 1 tab daily at bedtime SIMVASTATIN 20 MG TABS 968924 SIMVASTATIN Inactive COUMADIN 6 MG TABS 1 by mouth every other day COUMADIN 6 MG TABS 881745 WARFARIN SODIUM Inactive COUMADIN 5 MG TABS 1 by mouth every other day COUMADIN 5 MG TABS 837277 WARFARIN SODIUM Inactive LISINOPRIL 20 MG TABS 1 tab po at HS [place]OKI NOPRIL 20 MG TABS 708476 LISINOPRIL Inactive LISINOPRIL-HYDROCHLOROTHIAZIDE 20-12.5 MG TABS 1 tab by mouth da rocky LISINOPRIL-HYDROCHLOROTHIAZIDE 20-12.5 MG TABS 425298 LISINOPRIL-HYDROCHLOROTHIAZIDE Inactive POLYTRIM 04771-8.1 UNIT/ML-% SOLN 1 drop in affected e ye every 3 hours while awake x 7 days POLYTRIM 03705-2.1 UNIT/ML-% SOLN 22283 7 POLYMYXIN B-TRIMETHOPRIM Inactive COUMADIN 4 MG TABS 1 tablet daily COUMADIN 4 MG TABS 004056 WARFARIN SODIUM Inactive CLONIDINE HCL 0.1 MG TABS 1 po bid 7 days, then 1/2 tab po b id 7 days CLONIDINE HCL 0.1 MG TABS 987961 CLONIDINE HCL I nactive ALLOPURINOL 300 MG TABS Take 1 tablet by mouth daily 2 ALLOPURINOL 300 MG TABS 947062 ALLOPURINOL Inactive MECLIZINE HCL 25 MG TAB 1 po tid 3 days, then 1/2 tab tid 3 days MECLIZINE HCL 25 MG TAB 719913 MECLIZINE HCL Inactive LOVENOX 100 MG/ML SC SOLN One injection twice a day 09/15/15 LOVENOX 100 MG/ML SC SOLN 277940 ENOXAPARIN SODIUM Inactive Vital Signs Date Name [...] CBC - Chemistry cholesterol, serum 136 mg/dL 691-698 1208/08/09 triglyceride, serum, fasting 187 mg/dL 30-200 HDL [...] 1.0-3.5 Encounters Code Encounter Date Provider Facility CPT-91286 Level 3 Est. Patient 14:21:06 CDT Mitch Ambrose L janelle [facility]-17981 Level 3 Est. Patient 14:52:06 [facility] Level 3 Est. Patient 09:34:30 BUILDING ATTENDANT Mitch W L janelle [facility] CPT-63256 Level 3 Est. Patient 09:37:15 CDT Mitch W L ee [facility] CPT-26562 Level 3 Est. Patient 17:01:00 BUILDING ATTENDANT Mitch W L janelle [facility] CPT-90931 Level 3 Est. Patient 13:53:19 BUILDING ATTENDANT Mitch W L janelle [facility] CPT-88676 Level 3 Est. Patient 19:19:37 BUILDING ATTENDANT Mitch W L janelle [facility] CPT-85181 Level 3 Est. Patient 13:25:53 BUILDING ATTENDANT Tavo toure MD [facility] CPT-13227 Level 3 Est. Patient 18:17:28 CDT Mitch W L ee [facility] CPT-18487 Level 3 Est. Patient 15:22:57 CDT Mitch W L janelle [facility] CPT-81555 Level 3 Est. Patient 18:21:50 CDT Mitch W L ee [facility] CPT-18293 Level 3 Est. Patient 18:20:38 CDT Mitch W L ee [facility] CPT-41860 Level 3 Est. Patient 15:37:55 CDT Mitch W L ee [facility] CPT-22794 Level 2 Est. Patient 15:54:44 CDT Carmine benton MD [facility]-91018 Level 3 Est. Patient 21:46:01 BUILDING ATTENDANT Mitch luis [facility] CPT-48891 Level 3 Est. Patient 22:15:50 CDT Mitch luis DO [facility] CPT-17210 Level 3 Est. Patient 10:48:15 CDT Mitch luis DO [facility] CPT-19995 Level 3 Est. Patient 23:20:57 CDT Tavo toure MD [facility] CPT-27921 Level 3 Est. Patient 16:26:13 CDT Mitch luis [facility] Procedures Code Procedure Name Date Entry Date Standard Desc ription CPT-23631 PT/INR - LAB USE ONLY 13:32:49 BUILDING ATTENDANT CPT-63692 Venipuncture Draw Fee 13:32:49 BUILDING ATTENDANT CPT-94804 PT/INR - LAB USE ONLY 10:34:49 BUILDING ATTENDANT CPT-73563 Venipuncture Draw Fee 10:34:48 BUILDING ATTENDANT CPT-83807 PT/INR - LAB USE ONLY 09:22:03 BUILDING ATTENDANT CPT-66892 Venipuncture Draw Fee 09:22:02 BUILDING ATTENDANT CPT-73188 Hemoccult IFOBT - LAB USE ONLY 10:27:22 CDT CPT-48701 Venipuncture Draw Fee 08:27:08 CDT CPT-05662 Liver Profile - LAB USE ONLY 08:27:07 CDT 2 CPT-00939 Microalbumin - LAB USE ONLY 08:27:07 CDT 20 25/05/09 CPT-34031 PT/INR - LAB USE ONLY 08:27:07 CDT CPT-97413 HGBA1C - LAB USE ONLY 08:27:07 CDT CPT-27358 CBC - LAB USE ONLY 08:27:07 CDT CPT-86011 Venipuncture Draw Fee 11:09:14 CDT CPT-38871 Venipuncture Draw Fee 08:32:21 BUILDING ATTENDANT CPT-07400 Venipuncture Draw Fee 09:38:56 BUILDING ATTENDANT CPT-36184 No Charge Offi Visit 21:36:07 CDT 1 CPT-15457 Venipuncture Draw Fee 10:13:28 BUILDING ATTENDANT CPT-33282 Venipuncture Draw Fee 08:31:11 CDT CPT-76821 Aspir/Inject Med Joint 18:17:28 CDT CPT-92104 Venipuncture Draw Fee 10:13:30 CDT CPT-33149 Venipuncture Draw Fee 08:31:43 BUILDING ATTENDANT CPT-JTINJ Joint Injection 18:34:50 CDT CPT-61313 Knee 3V 12:25:09 CDT CPT-95733 Venipuncture Draw Fee 12:15:57 CDT CPT-060 Medical Surveillance Exam 21:31:43 CDT 2011 CPT-20487 Venipuncture Draw Fee 08:32:05 BUILDING ATTENDANT CPT-OV Office Visit 18:19:06 CDT
--- OUTSIDE RECORDS SUMMARY | 2020-01-18 12:56 | XMS REPORT | Clinical Summary ---
[...] 1 tablet by mouth daily AMLODIPINE BESYLATE 35551873816 Active Mitch Urbina DO Active MECLIZINE HCL 25 MG TAB 1 po tid 3 days, then 1/2 tab tid 3 days MECLIZINE HCL 70462410850 No Longer Active Corey SEGURA Active ALLOPURINOL 300 MG TABS Take 1 tablet by mouth daily 2 ALLOPURINOL 93406840859 No Longer Active Corey SEGURA Activ e CLONIDINE HCL 0.1 MG TABS 1 po bid 7 days, then 1/2 tab po b id 7 days CLONIDINE HCL 16538921606 No Longer Active Corey SEGURA Active COUMADIN 5 MG TABS 1 tab PO daily WARFARIN SODIUM 19914931608 Active Mitch Urbina DO Active COUMADIN 4 MG TABS 1 tablet daily WARFARIN SODI UM 93409827013 No Longer Active Corey SEGURA Active POLYTRIM 06543-4.1 UNIT/ML-% SOLN 1 drop in affected e ye every 3 hours while awake x 7 days POLYMYXIN B-TRIMETHOPRIM 17493151302 N o Longer Active Corey SEGURA Active LOSARTAN POTASSIUM-HCTZ 100-12.5 MG TABS 1 by mouth da rocky for high blood pressure LOSARTAN POTASSIUM-HCTZ 53115273127 Active Stephy Urbina DO Active LISINOPRIL-HYDROCHLOROTHIAZIDE 20-12.5 MG TABS 1 tab by mouth da rocky LISINOPRIL-HYDROCHLOROTHIAZIDE 48461085322 No Longer Active Mitch lusi DO Active LISINOPRIL 20 MG TABS 1 tab po at HS LISINOPRIL 95875490966 No Longer Active Mitch Urbina DO Active COUMADIN 5 MG TABS 1 by mouth every other day WARFARIN SODIUM 75958029774 No Longer Active Mitch Urbina DO Active COUMADIN 6 MG TABS 1 by mouth every other day WARFARIN SODIUM 42251623487 No Longer Active Mitch Urbina DO Active COLCRYS 0.6 MG TABS 1 tab qid prn gout COLCHICINE 09342446223 Active Corey SEGURA Active SIMVASTATIN 40 MG TABS 1 tab daily at bedtime S IMVASTATIN 42848333747 Active Mitch Urbina DO Active SIMVASTATIN 20 MG TABS 1 tab daily at bedtime S IMVASTATIN 66167237706 No Longer Active Mitch Urbina DO Active LOVENOX 100 MG/ML SC SOLN One injection twice a day 09/15/15 ENOXAPARIN SODIUM 59494916667 No Longer Active Carmine Navarrete ctive JANUVIA 50 MG TABS Take one by mouth daily DIEGO GLIPTIN PHOSPHATE 99577468739 Active Mitch Urbina DO Active JANUVIA 100 MG TABS 1/2 by mouth every day DIEGO GLIPTIN PHOSPHATE 33397036445 No Longer Active Bijal Segal RN Active METFORMIN HCL 500 MG TABS 2 by mouth twice daily METFORMIN HCL 54743270687 Active Corey Arias PA Active GLIMEPIRIDE 4 MG TABS 1 tab po bid GLIMEPIRIDE 079236 01980 Active Mitch Urbina DO Active COLCRYS 0.6 MG TABS 1 po q 6 hours prn gout pain 03/02 COLCHICINE 97516601298 No Longer Active Camilamargarita Reese Active LISINOPRIL 5 MG TABS 1 by mouth every day LISIN OPRIL 88899485460 No Longer Active Nguyenmolly Perez Active KLOR-CON 20 MEQ PACK Take one by mouth daily 8 POTASSIUM CHLORIDE 47324051678 No Longer Active Nguyenmolly Perez Active FUROSEMIDE 40 MG TABS 1 by mouth daily FUROSEMI DE 56483776520 No Longer Active Nguyen Perez Active PROVIGIL 200 MG TABS 1/2 tab po q day MODAFINIL 84746 337112 Active Mitch Urbina DO Active PROVIGIL 100 MG TABS Take one by mouth daily MO DAFINIL 64698349945 No Longer Active Mitch Urbina DO Active BACTRIM DS 800-160 MG TAB 1 tab by mouth twice daily TRIMETHOPRIM-SULFAMETHOXAZOLE 09999946853 No Longer Active Renan Hays MD Active FAMOTIDINE 20 MG TABS by mouth twice a day FAMOTI DINE 59550894334 Active Mitch Urbina DO Active ADULT ASPIRIN LOW STRENGTH 81 MG TBDP 1 by mouth every daily ASPIRIN 58670330934 Active Mitch Urbina DO Active METOPROLOL TARTRATE 50 MG TABS 1 by mouth twice daily METOPROLOL TARTRATE 98805130213 Active Curly Coker MD Active BACTRIM DS 800-160 MG TAB 1 tab by mouth twice daily 2 BACTRIM DS 800-160 MG TAB TRIMETHOPRIM-SULFAMETHOXAZOLE Inac tive PROVIGIL 100 MG TABS Take one by mouth daily 4 PROVIGIL 100 MG TABS 653089 MODAFINIL Inactive FUROSEMIDE 40 MG TABS 1 by mouth daily FU ROSEMIDE 40 MG TABS 504947 FUROSEMIDE Inactive KLOR-CON 20 MEQ PACK Take one by mouth daily 8 KLOR-CON 20 MEQ PACK 096726 POTASSIUM CHLORIDE Inactive LISINOPRIL 5 MG TABS 1 by mouth every day LISINOPRIL 5 MG TABS 757916 LISINOPRIL Inactive COLCRYS 0.6 MG TABS 1 po q 6 hours prn gout pain 03/02 COLCRYS 0.6 MG TABS 082100 COLCHICINE Inactive JANUVIA 100 MG TABS 1/2 by mouth every day JANUVI A 100 MG TABS SITAGLIPTIN PHOSPHATE Inactive SIMVASTATIN 20 MG TABS 1 tab daily at bedtime SIMVASTATIN 20 MG TABS 224554 SIMVASTATIN Inactive COUMADIN 6 MG TABS 1 by mouth every other day COUMADIN 6 MG TABS 935947 WARFARIN SODIUM Inactive COUMADIN 5 MG TABS 1 by mouth every other day COUMADIN 5 MG TABS 865259 WARFARIN SODIUM Inactive LISINOPRIL 20 MG TABS 1 tab po at HS KOKI NOPRIL 20 MG TABS 671579 LISINOPRIL Inactive LISINOPRIL-HYDROCHLOROTHIAZIDE 20-12.5 MG TABS 1 tab by mouth da rocky LISINOPRIL-HYDROCHLOROTHIAZIDE 20-12.5 MG TABS 223856 LISINOPRIL-HYDROCHLOROTHIAZIDE Inactive POLYTRIM 51038-1.1 UNIT/ML-% SOLN 1 drop in affected e ye every 3 hours while awake x 7 days POLYTRIM 31511-0.1 UNIT/ML-% SOLN 62507 7 POLYMYXIN B-TRIMETHOPRIM Inactive COUMADIN 4 MG TABS 1 tablet daily COUMADIN 4 MG TABS 316697 WARFARIN SODIUM Inactive CLONIDINE HCL 0.1 MG TABS 1 po bid 7 days, then 1/2 tab po b id 7 days CLONIDINE HCL 0.1 MG TABS 609465 CLONIDINE HCL I nactive ALLOPURINOL 300 MG TABS Take 1 tablet by mouth daily 2 ALLOPURINOL 300 MG TABS 087668 ALLOPURINOL Inactive MECLIZINE HCL 25 MG TAB 1 po tid 3 days, then 1/2 tab tid 3 days MECLIZINE HCL 25 MG TAB 185241 MECLIZINE HCL Inactive LOVENOX 100 MG/ML SC SOLN One injection twice a day 09/15/15 LOVENOX 100 MG/ML SC SOLN 609609 ENOXAPARIN SODIUM Inactive Vital Signs Date Name [...] leukocyte count, blood 6.2 10^3/MM^3 10*3/mm3 4.6-10.2 hematocrit, blood 39.5 % 41.0-53.0 mean corpuscular volume, RBC 82 fL 80-97 mean corpuscular hemoglobin, RBC 27.0 pg 27. 0-31.2 mean corpuscular hemoglobin concentration, RBC 33.0 G/DL % 31.8-35.4 red blood cell distribution width 17.2 % 11 .6-14.8 platelet count 283 10^3/MM^3 10*3/mm3 451-038 2110/03/27 neutrophils as percent of blood leukocytes 69.3 % 42.2-75.2 monocytes as percent of blood leukocytes 7.3 % 1.7-9.3 lymphocytes as percent of blood leukocytes 19.7 % 20.5-51.1 erythrocyte (RBC) count 4.83 10^6/MM^3 10*6/mm3 4.69-6.1 3 hemoglobin, blood 13.0 g/dL 13.5-17.5 Lab Report: CBC, Comp. Metabolic Panel, HGBA1C, MICROALBUMIN, Uric Acid - Chemistry albumin/creatinine ratio, urine < 30 mg/g mg/g{creat} 0-2 9 uric acid, serum 10.3 mg/dL 2.6-7.2 sodium, serum 136 mmol/L 119-955 5719/07/25 potassium, serum 4.6 mmol/L 3.5-5.2 chloride, serum [...] Ag - Chemistry sodium, serum 141 mmol/L 318-825 2230/07/06 potassium, serum 4.4 mmol/L 3.5-5.2 chloride, serum [...] Panel - Chemistry sodium, serum 137 mmol/L 426-397 1084/11/14 potassium, serum 4.4 mmol/L 3.5-5.2 chloride, serum [...] 8.0 % 4.3-6.0 cholesterol, serum 130 mg/dL 774-005 6991/11/14 triglyceride, serum, fasting 288 mg/dL 30-200 HDL cholesterol, serum 33 mg/dL 32-96 LDL cholesterol, serum 39 mg/dL 0-130 Lab Report: Comp. Metabolic Panel, HGBA1 C, Lipid Panel, Prothrombin Time - Chemistry blood glucose 149 mg/dL 65-110 carbon dioxide, venous blood 29.0 mmol/L 21.0-32 .0 chloride, serum 101 mmol/L 98-107 potassium, serum 4.4 mmol/L 3.5-5.2 sodium, serum 136 mmol/L 004-713 3460/12/02 urea nitrogen, blood 29 mg/dL 7-18 creatinine, serum 1.20 mg/dL 0.60-1.30 alanine aminotransferase (SGPT), serum 46 U/L -78 aspartate aminotransferase (SGOT), serum 34 U/L 15-37 calcium, serum 10.3 mg/dL 8.5-10.1 bilirubin, serum, total 0.60 mg/dL 0.00-1.00 hemoglobin A1C, blood, as % of total hemoglobin 7.6 % 4.3-6.0 cholesterol, serum 117 mg/dL 220-255 2080/12/02 triglyceride, serum, fasting 226 mg/dL 30-200 HDL [...] 7.0 % 4.3-6.0 cholesterol, serum 120 mg/dL 503-562 8571/07/06 triglyceride, serum, fasting 186 mg/dL 30-200 HDL cholesterol, serum 34 mg/dL 32-96 LDL cholesterol, serum 49 mg/dL 0-130 Lab Report: Prothrombin Time - Coagulati on international normalized ratio (INR) 2.3 1.0-3.5 prothrombin [...] 18.6 SECS s 11.1-13.4 prothrombin time (patient) 19.9 SECS s 11.1-13.4 international normalized ratio (INR) 2.6 1.0-3.5 Encounters Code Encounter Date Provider Facility CPT-83819 Level 3 Est. Patient 09:37:15 CDT Mitch Arnol luis [facility] CPT-11006 Level 3 Est. 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 Patient 13:53:19 ASSEMBLY MACHINE SET UP MECHANIC Mitch luis [facility] CPT-87843 Level 3 Est. Patient 19:19:37 ASSEMBLY MACHINE SET UP MECHANIC Mitch luis [facility] CPT-51027 Level 3 Est. Patient 13:25:53 ASSEMBLY MACHINE SET UP MECHANIC Tavo toure MD [facility] CPT-73381 Level 3 Est. Patient 18:17:28 CDT Mitch luis [facility] CPT-47517 Level 3 Est. Patient 15:22:57 CDT Mitch luis [facility] CPT-90451 Level 3 Est. Patient 18:21:50 CDT Mitch Arnol L janelle [facility] CPT-46264 Level 3 Est. Patient 18:20:38 CDT Mitch luis [facility] CPT-51387 Level 3 Est. Patient 15:37:55 CDT Mitch W L janelle [facility] CPT-28035 Level 2 Est. Patient 15:54:44 CDT Carmine benton MD [facility]-01902 Level 3 Est. Patient 21:46:01 ASSEMBLY MACHINE SET UP MECHANIC Mitch luis [facility] CPT-30899 Level 3 Est. Patient 22:15:50 CDT Mitch luis [facility] CPT-65712 Level 3 Est. Patient 10:48:15 CDT Mitch luis [facility] CPT-51601 Level 3 Est. Patient 23:20:57 CDT Tavo toure MD [facility] CPT-59463 Level 3 Est. Patient 16:26:13 CDT Mitch luis [facility] Procedures Code Procedure Name Date Entry Date Standard Desc ription CPT-80407 No Charge Offi Visit 21:36:07 CDT 1 CPT-30011 Venipuncture Draw Fee 10:13:28 ASSEMBLY MACHINE SET UP MECHANIC CPT-55912 Venipuncture Draw Fee 08:31:11 CDT CPT-88445 Aspir/Inject Med Joint 18:17:28 CDT CPT-99941 Venipuncture Draw Fee 10:13:30 CDT CPT-35420 Venipuncture Draw Fee 08:31:43 ASSEMBLY MACHINE SET UP MECHANIC CPT-JTINJ Joint Injection 18:34:50 CDT CPT-69091 Knee 3V 12:25:09 CDT CPT-66165 Venipuncture Draw Fee 12:15:57 CDT CPT-060 Medical Surveillance Exam 21:31:43 CDT 2011 CPT-89428 Venipuncture Draw Fee 08:32:05 ASSEMBLY MACHINE SET UP MECHANIC CPT-OV Office Visit 18:19:06 CDT
--- OUTSIDE RECORDS SUMMARY | 2020-01-18 12:56 | XMS REPORT | Clinical Summary ---
[...] lower leg DIZZINESS 780.4 Resolved Mitch Arnlo Urbina DO Dizziness and giddiness CAROTID BRUIT, [...] (CURRENT) USE OF ANTICOAGULANTS ICD-V58.61 Inactive Mitch Ubrina DO EDEMA ICD-782.3 Inactive Mitch Urbina DO DIZZINESS ICD-780.4 Inactive Mitch Urbina DO 10/23 GOUT, RIGHT WRIST ICD-274.9 Inactive Mitch Ambrose Le e DO BRUISE ICD-924.9 Inactive Mitch Urbina DO OLECRANON BURSITIS, RIGHT ICD-726.33 Inactive Mitch Urbina DO UNSPECIFIED ANEMIA ICD-285.9 Inactive Mitch luis DO Malaise and fatigue ICD-780.79 Inactive Mitch Urbina DO Cough, chronic ICD-786.2 Inactive Mitch Uribna Ileana O Sebaceous cyst, infected ICD-706.2 Inactive Mitch Urbina DO Cellulitis ICD-682.9 Inactive Mitch Urbina DO 10/23 Medication List Medication Instructions Start Date Stop Date Generic Name NDC Status Provider Patient Instruction COLCRYS 0.6 MG TABS 1 tab qid prn gout COLCHICINE 86170459679 Active Kathie Juan RPT,RMA Active COUMADIN 1 MG TAB take 1 tab daily with 5mg tab. ( 6mg total ) 2015 WARFARIN SODIUM 58217113466 Active Domi Rivera MA Acti ve INVOKANA 100 MG ORAL TABS 1 tablet orally daily CANAGLIFLOZIN 12627857664 Active Kathie Juan RPT,RMA Active MINOXIDIL 2.5 MG TABS 1 tablet daily for high blood pressure 10/23 MINOXIDIL 12702954273 Active Mitch Urbina DO Active AMLODIPINE BESYLATE 5 MG TABS 1 tablet by mouth daily AMLODIPINE BESYLATE 36525054567 Active Domi Rivera MA Active MECLIZINE HCL 25 MG TAB 1 po tid 3 days, then 1/2 tab tid 3 days MECLIZINE HCL 31784134418 No Longer Active Corey SEGURA Active ALLOPURINOL 300 MG TABS Take 1 tablet by mouth daily 2 ALLOPURINOL 63330589617 No Longer Active Corey SEGURA Activ e CLONIDINE HCL 0.1 MG TABS 1 po bid 7 days, then 1/2 tab po b id 7 days CLONIDINE HCL 30050447749 No Longer Active Corey SEGURA Active COUMADIN 5 MG TABS 1 tab PO daily WARFARIN SODIUM 28562802923 Active Domi Rivera MA Active COUMADIN 4 MG TABS 1 tablet daily WARFARIN SODI UM 28400712041 No Longer Active Corey SEGURA Active POLYTRIM 24415-2.1 UNIT/ML-% SOLN 1 drop in affected e ye every 3 hours while awake x 7 days POLYMYXIN B-TRIMETHOPRIM 76358604407 N o Longer Active Corey SEGURA Active LOSARTAN POTASSIUM-HCTZ 100-12.5 MG TABS 1 by mouth da rocky for high blood pressure LOSARTAN POTASSIUM-HCTZ 45504266368 Active Domi Rivera MA Active LISINOPRIL-HYDROCHLOROTHIAZIDE 20-12.5 MG TABS 1 tab by mouth da rocky LISINOPRIL-HYDROCHLOROTHIAZIDE 06830352728 No Longer Active Mitch luis DO Active LISINOPRIL 20 MG TABS 1 tab po at HS LISINOPRIL 09451711482 No Longer Active Mitch Urbina DO Active COUMADIN 5 MG TABS 1 by mouth every other day WARFARIN SODIUM 44335261270 No Longer Active Mitch Urbina DO Active COUMADIN 6 MG TABS 1 by mouth every other day WARFARIN SODIUM 97550624262 No Longer Active Mitch Urbina DO Active SIMVASTATIN 40 MG TABS 1 tab daily at bedtime S IMVASTATIN 22184748986 Active Domi Rivera MA Active SIMVASTATIN 20 MG TABS 1 tab daily at bedtime S IMVASTATIN 65312694348 No Longer Active Mitch Urbina DO Active LOVENOX 100 MG/ML SC SOLN One injection twice a day 09/15/15 ENOXAPARIN SODIUM 34294477376 No Longer Active Carmine Navarrete ctive JANUVIA 50 MG TABS Take one by mouth daily DIEGO GLIPTIN PHOSPHATE 67420801183 Active Domi Rivera MA Active JANUVIA 100 MG TABS 1/2 by mouth every day DIEGO GLIPTIN PHOSPHATE 84648560157 No Longer Active Bijal Segal RN Active METFORMIN HCL 500 MG TABS 2 by mouth twice daily METFORMIN HCL 64854545855 Active Kathie Juan RPT,RMA Active GLIMEPIRIDE 4 MG TABS 1 tab po bid GLIMEPIRIDE 660932 38673 Active Kathie Juan RPT,RMA Active COLCRYS 0.6 MG TABS 1 po q 6 hours prn gout pain 03/02 COLCHICINE 03639646706 No Longer Active Camila Reese Active LISINOPRIL 5 MG TABS 1 by mouth every day LISIN OPRIL 95571297691 No Longer Active Nguyen Perez Active KLOR-CON 20 MEQ PACK Take one by mouth daily 8 POTASSIUM CHLORIDE 92371286222 No Longer Active Nguyen Perez Active FUROSEMIDE 40 MG TABS 1 by mouth daily FUROSEMI DE 03295579280 No Longer Active Nguyen Perez Active PROVIGIL 200 MG TABS 1/2 tab po q day MODAFINIL 11251 202683 Active Domi Rivera MA Active PROVIGIL 100 MG TABS Take one by mouth daily MO DAFINIL 75053879966 No Longer Active Mitch Urbina DO Active BACTRIM DS 800-160 MG TAB 1 tab by mouth twice daily 2 TRIMETHOPRIM-SULFAMETHOXAZOLE 22708195663 No Longer Active Renan Hays MD Active FAMOTIDINE 20 MG TABS by mouth twice a day FAMOTI DINE 32646739960 Active Mitch Urbina DO Active ADULT ASPIRIN LOW STRENGTH 81 MG TBDP 1 by mouth every daily ASPIRIN 37536661287 Active Mitch Urbina DO Active METOPROLOL TARTRATE 50 MG TABS 1 by mouth twice daily METOPROLOL TARTRATE 60548341463 Active Domi Rivera MA Active BACTRIM DS 800-160 MG TAB 1 tab by mouth twice daily 2 BACTRIM DS 800-160 MG TAB 233189 TRIMETHOPRIM-SULFAMETHOXAZOLE Inac tive PROVIGIL 100 MG TABS Take one by mouth daily 4 PROVIGIL 100 MG TABS 240573 MODAFINIL Inactive FUROSEMIDE 40 MG TABS 1 by mouth daily FU ROSEMIDE 40 MG TABS 411425 FUROSEMIDE Inactive KLOR-CON 20 MEQ PACK Take one by mouth daily 8 KLOR-CON 20 MEQ PACK 831161 POTASSIUM CHLORIDE Inactive LISINOPRIL 5 MG TABS 1 by mouth every day LISINOPRIL 5 MG TABS 970480 LISINOPRIL Inactive COLCRYS 0.6 MG TABS 1 po q 6 hours prn gout pain 03/02 COLCRYS 0.6 MG TABS 217196 COLCHICINE Inactive JANUVIA 100 MG TABS 1/2 by mouth every day JANUVI A 100 MG TABS SITAGLIPTIN PHOSPHATE Inactive SIMVASTATIN 20 MG TABS 1 tab daily at bedtime SIMVASTATIN 20 MG TABS 575226 SIMVASTATIN Inactive COUMADIN 6 MG TABS 1 by mouth every other day COUMADIN 6 MG TABS 460881 WARFARIN SODIUM Inactive COUMADIN 5 MG TABS 1 by mouth every other day COUMADIN 5 MG TABS 693301 WARFARIN SODIUM Inactive LISINOPRIL 20 MG TABS 1 tab po at HS KOKI NOPRIL 20 MG TABS 055129 LISINOPRIL Inactive LISINOPRIL-HYDROCHLOROTHIAZIDE 20-12.5 MG TABS 1 tab by mouth da rocky LISINOPRIL-HYDROCHLOROTHIAZIDE 20-12.5 MG TABS 373573 LISINOPRIL-HYDROCHLOROTHIAZIDE Inactive POLYTRIM 86786-4.1 UNIT/ML-% SOLN 1 drop in affected e ye every 3 hours while awake x 7 days POLYTRIM 71498-9.1 UNIT/ML-% SOLN 34887 7 POLYMYXIN B-TRIMETHOPRIM Inactive COUMADIN 4 MG TABS 1 tablet daily COUMADIN 4 MG TABS 566323 WARFARIN SODIUM Inactive CLONIDINE HCL 0.1 MG TABS 1 po bid 7 days, then 1/2 tab po b id 7 days CLONIDINE HCL 0.1 MG TABS 228137 CLONIDINE HCL I nactive ALLOPURINOL 300 MG TABS Take 1 tablet by mouth daily 2 ALLOPURINOL 300 MG TABS 807346 ALLOPURINOL Inactive MECLIZINE HCL 25 MG TAB 1 po tid 3 days, then 1/2 tab tid 3 days MECLIZINE HCL 25 MG TAB 936974 MECLIZINE HCL Inactive LOVENOX 100 MG/ML SC SOLN One injection twice a day 09/15/15 LOVENOX 100 MG/ML SC SOLN 527018 ENOXAPARIN SODIUM Inactive Vital Signs Date Name [...] 11 .6-14.8 platelet count 276 10^3/MM^3 10*3/mm3 498-851 8410/01/14 hemoglobin, blood 12.2 g/dL 13.5-17.5 hematocrit, blood 37.3 % 41.0-53.0 leukocyte count, blood 7.1 10^3/MM^3 10*3/mm3 4.6-10.2 Lab Report: Comp. Metabolic Panel - Chem istry sodium, serum 136 mmol/L 738-205 5824/01/14 carbon dioxide, venous blood 25.4 mmol/L 21.0-32 [...] 18.9 SECS s 11.1-13.4 prothrombin time (patient) 17.1 SECS s 11.1-13.4 international normalized ratio (INR) 2.0 1.0-3.5 international normalized ratio (INR) 2.2 1.0-3.5 prothrombin time (patient) 18.1 SECS s 11.1-13.4 international normalized ratio (INR) 2.4 1.0-3.5 prothrombin time (patient) 15.8 SECS s 11.1-13.4 international normalized ratio (INR) 1.8 1.0-3.5 Encounters Code Encounter Date Provider Facility CPT-23378 Level 3 Est. Patient 09:34:30 PACKING ROOM INSPECTOR Mitch luis [facility] CPT-50060 Level 3 Est. Patient 09:37:15 CDT Mitch luis [facility]-78422 Level 3 Est. Patient 17:01:00 PACKING ROOM INSPECTOR Mitch luis [facility] CPT-86846 Level 3 Est. Patient 13:53:19 PACKING ROOM INSPECTOR Mitch luis [facility] CPT-08601 Level 3 Est. Patient 19:19:37 PACKING ROOM INSPECTOR Mitch luis [facility] CPT-19693 Level 3 Est. Patient 13:25:53 PACKING ROOM INSPECTOR Tavo toure MD [facility]-80819 Level 3 Est. Patient 18:17:28 CDT Mitch luis [facility] CPT-28030 Level 3 Est. Patient 15:22:57 CDT Mitch luis [facility] CPT-19478 Level 3 Est. Patient 18:21:50 CDT Mitch luis [facility] CPT-63790 Level 3 Est. Patient 18:20:38 CDT Mitch luis [facility] CPT-46628 Level 3 Est. Patient 15:37:55 CDT Mitch luis [facility] CPT-91229 Level 2 Est. Patient 15:54:44 CDT Carmine benton MD [facility]-27103 Level 3 Est. Patient 21:46:01 PACKING ROOM INSPECTOR Mitch Arnol L janelle [facility] CPT-99834 Level 3 Est. Patient 22:15:50 CDT Mitch W L janelle [facility] CPT-09751 Level 3 Est. Patient 10:48:15 CDT Mitch W L janelle [facility] CPT-64365 Level 3 Est. Patient 23:20:57 CDT Tavo toure MD [facility] CPT-61031 Level 3 Est. Patient 16:26:13 CDT Mitch luis DO [facility] Procedures Code Procedure Name Date Entry Date Standard Desc ription CPT-86937 Venipuncture Draw Fee 08:32:21 PACKING ROOM INSPECTOR CPT-01450 Venipuncture Draw Fee 09:38:56 PACKING ROOM INSPECTOR CPT-31455 No Charge Offi Visit 21:36:07 CDT 1 CPT-23537 Venipuncture Draw Fee 10:13:28 PACKING ROOM INSPECTOR CPT-83618 Venipuncture Draw Fee 08:31:11 CDT CPT-93281 Aspir/Inject Med Joint 18:17:28 CDT CPT-19003 Venipuncture Draw Fee 10:13:30 CDT CPT-65913 Venipuncture Draw Fee 08:31:43 PACKING ROOM INSPECTOR CPT-JTINJ Joint Injection 18:34:50 CDT CPT-70127 Knee 3V 12:25:09 CDT CPT-82986 Venipuncture Draw Fee 12:15:57 CDT CPT-060 Medical Surveillance Exam 21:31:43 CDT 2011 CPT-56290 Venipuncture Draw Fee 08:32:05 PACKING ROOM INSPECTOR CPT-OV Office Visit 18:19:06 CDT
--- OUTSIDE RECORDS SUMMARY | 2020-01-18 12:56 | XMS REPORT | Clinical Summary ---
Author Author Admin, Mitch Leon Organization [facility] Address Unknown Phone Unavailable Allergies, Adverse [...] Le e DO BRUISE ICD-924.9 Inactive Mitch Urbian DO OLECRANON BURSITIS, RIGHT ICD-726.33 Inactive Mitch [...] ORAL TABS 1 tablet orally daily CANAGLIFLOZIN 42720492359 Active Kathie Juan RPT,RMA Active MINOXIDIL 2.5 MG TABS 1 tablet daily for high blood pressure 10/23 MINOXIDIL 15874456642 Active Mitch Arnol Carlitos DO Active AMLODIPINE BESYLATE 5 MG TABS 1 tablet by mouth daily AMLODIPINE BESYLATE 03807451075 Active Domi Rivera MA Active MECLIZINE HCL 25 MG TAB 1 po tid 3 days, then 1/2 tab tid 3 days MECLIZINE HCL 54439135822 No Longer Active Corey SEGURA Active ALLOPURINOL 300 MG TABS Take 1 tablet by mouth daily 2 ALLOPURINOL 42860463082 No Longer Active Corey SEGURA Activ e CLONIDINE HCL 0.1 MG TABS 1 po bid 7 days, then 1/2 tab po b id 7 days CLONIDINE HCL 32842830570 No Longer Active Corey SEGURA Active COUMADIN 5 MG TABS 1 tab PO daily WARFARIN SODIUM 94542712100 Active Domi Rivera MA Active COUMADIN 4 MG TABS 1 tablet daily WARFARIN SODI UM 43342877808 No Longer Active Corey SEGURA Active POLYTRIM 24093-1.1 UNIT/ML-% SOLN 1 drop in affected e ye every 3 hours while awake x 7 days POLYMYXIN B-TRIMETHOPRIM 93114761735 N o Longer Active Corey SEGURA Active LOSARTAN POTASSIUM-HCTZ 100-12.5 MG TABS 1 by mouth da rocky for high blood pressure LOSARTAN POTASSIUM-HCTZ 85000825545 Active Domi Rivera MA Active LISINOPRIL-HYDROCHLOROTHIAZIDE 20-12.5 MG TABS 1 tab by mouth da rocky LISINOPRIL-HYDROCHLOROTHIAZIDE 95210218924 No Longer Active Mitch luis DO Active LISINOPRIL 20 MG TABS 1 tab po at HS LISINOPRIL 06479638327 No Longer Active Mitch Urbina DO Active COUMADIN 5 MG TABS 1 by mouth every other day WARFARIN SODIUM 61240919725 No Longer Active Mitch Urbina DO Active COUMADIN 6 MG TABS 1 by mouth every other day WARFARIN SODIUM 72105950110 No Longer Active Mitch Urbina DO Active COLCRYS 0.6 MG TABS 1 tab qid prn gout COLCHICINE 64115524450 Active Corey SEGURA Active SIMVASTATIN 40 MG TABS 1 tab daily at bedtime S IMVASTATIN 67981680338 Active Domi Rivera MA Active SIMVASTATIN 20 MG TABS 1 tab daily at bedtime S IMVASTATIN 44761732844 No Longer Active Mitch Urbina DO Active LOVENOX 100 MG/ML SC SOLN One injection twice a day 09/15/15 ENOXAPARIN SODIUM 12790081022 No Longer Active Carmine Navarrete ctive JANUVIA 50 MG TABS Take one by mouth daily DIEGO GLIPTIN PHOSPHATE 11528714391 Active Domi Rivera MA Active JANUVIA 100 MG TABS 1/2 by mouth every day DIEGO GLIPTIN PHOSPHATE 20998783526 No Longer Active Bijal Segal RN Active METFORMIN HCL 500 MG TABS 2 by mouth twice daily METFORMIN HCL 85021210199 Active Domi Rivera MA Active GLIMEPIRIDE 4 MG TABS 1 tab po bid GLIMEPIRIDE 883659 06598 Active Domi Rivera MA Active COLCRYS 0.6 MG TABS 1 po q 6 hours prn gout pain 03/02 COLCHICINE 79363544353 No Longer Active Camila Reese Active LISINOPRIL 5 MG TABS 1 by mouth every day LISIN OPRIL 80571347469 No Longer Active Nguyen Perez Active KLOR-CON 20 MEQ PACK Take one by mouth daily 8 POTASSIUM CHLORIDE 74855890140 No Longer Active Nguyen Perez Active FUROSEMIDE 40 MG TABS 1 by mouth daily FUROSEMI DE 15202294759 No Longer Active Nguyen Perez Active PROVIGIL 200 MG TABS 1/2 tab po q day MODAFINIL 07586 160289 Active Domi Rivera MA Active PROVIGIL 100 MG TABS Take one by mouth daily MO DAFINIL 81992273153 No Longer Active Mitch Urbina DO Active BACTRIM DS 800-160 MG TAB 1 tab by mouth twice daily 2 TRIMETHOPRIM-SULFAMETHOXAZOLE 20275465070 No Longer Active Renan Hays MD Active FAMOTIDINE 20 MG TABS by mouth twice a day FAMOTI DINE 87881730031 Active Mitch Urbina DO Active ADULT ASPIRIN LOW STRENGTH 81 MG TBDP 1 by mouth every daily ASPIRIN 12183953170 Active Mitch Urbina DO Active METOPROLOL TARTRATE 50 MG TABS 1 by mouth twice daily METOPROLOL TARTRATE 71568575986 Active Domi Rivera MA Active BACTRIM DS 800-160 MG TAB 1 tab by mouth twice daily 2 BACTRIM DS 800-160 MG TAB 105274 TRIMETHOPRIM-SULFAMETHOXAZOLE Inac tive PROVIGIL 100 MG TABS Take one by mouth daily 4 PROVIGIL 100 MG TABS 155697 MODAFINIL Inactive FUROSEMIDE 40 MG TABS 1 by mouth daily FU ROSEMIDE 40 MG TABS 888597 FUROSEMIDE Inactive KLOR-CON 20 MEQ PACK Take one by mouth daily 8 KLOR-CON 20 MEQ PACK 170418 POTASSIUM CHLORIDE Inactive LISINOPRIL 5 MG TABS 1 by mouth every day LISINOPRIL 5 MG TABS 900104 LISINOPRIL Inactive COLCRYS 0.6 MG TABS 1 po q 6 hours prn gout pain 03/02 COLCRYS 0.6 MG TABS 616255 COLCHICINE Inactive JANUVIA 100 MG TABS 1/2 by mouth every day JANUVI A 100 MG TABS SITAGLIPTIN PHOSPHATE Inactive SIMVASTATIN 20 MG TABS 1 tab daily at bedtime SIMVASTATIN 20 MG TABS 810737 SIMVASTATIN Inactive COUMADIN 6 MG TABS 1 by mouth every other day COUMADIN 6 MG TABS 922252 WARFARIN SODIUM Inactive COUMADIN 5 MG TABS 1 by mouth every other day COUMADIN 5 MG TABS 914864 WARFARIN SODIUM Inactive LISINOPRIL 20 MG TABS 1 tab po at HS KOKI NOPRIL 20 MG TABS 596805 LISINOPRIL Inactive LISINOPRIL-HYDROCHLOROTHIAZIDE 20-12.5 MG TABS 1 tab by mouth da rocky LISINOPRIL-HYDROCHLOROTHIAZIDE 20-12.5 MG TABS 994251 LISINOPRIL-HYDROCHLOROTHIAZIDE Inactive POLYTRIM 08552-5.1 UNIT/ML-% SOLN 1 drop in affected e ye every 3 hours while awake x 7 days POLYTRIM 08224-5.1 UNIT/ML-% SOLN 82654 7 POLYMYXIN B-TRIMETHOPRIM Inactive COUMADIN 4 MG TABS 1 tablet daily COUMADIN 4 MG TABS 869056 WARFARIN SODIUM Inactive CLONIDINE HCL 0.1 MG TABS 1 po bid 7 days, then 1/2 tab po b id 7 days CLONIDINE HCL 0.1 MG TABS 138565 CLONIDINE HCL I nactive ALLOPURINOL 300 MG TABS Take 1 tablet by mouth daily 2 ALLOPURINOL 300 MG TABS 551342 ALLOPURINOL Inactive MECLIZINE HCL 25 MG TAB 1 po tid 3 days, then 1/2 tab tid 3 days MECLIZINE HCL 25 MG TAB 644161 MECLIZINE HCL Inactive LOVENOX 100 MG/ML SC SOLN One injection twice a day 09/15/15 LOVENOX 100 MG/ML SC SOLN 728632 ENOXAPARIN SODIUM Inactive Vital Signs Date Name [...] Range Description Chart Maintenance: Hemoccult added to ct enriqueta - Chemistry occult blood, stool (E&M) [...] Ag - Chemistry sodium, serum 141 mmol/L 963-424 5995/07/06 potassium, serum 4.4 mmol/L 3.5-5.2 chloride, serum [...] - Chem istry sodium, serum 136 mmol/L 781-684 2885/01/14 carbon dioxide, venous blood 25.4 mmol/L 21.0-32 [...] 7.0 % 4.3-6.0 cholesterol, serum 120 mg/dL 002-068 0840/07/06 triglyceride, serum, fasting 186 mg/dL 30-200 HDL [...] 1.0-3.5 Encounters Code Encounter Date Provider Facility CPT-25380 Level 3 Est. Patient 09:34:30 HEARING SPECIALIST Mitch lusi [facility] CPT-82018 Level 3 Est. Patient 09:37:15 CDT Mitch luis [facility] CPT-77904 Level 3 Est. Patient 17:01:00 HEARING SPECIALIST Mitch W L ee DO [facility] CPT-55811 Level 3 Est. Patient 13:53:19 HEARING SPECIALIST Mitch W L ee DO [facility] CPT-87954 Level 3 Est. Patient 19:19:37 HEARING SPECIALIST Mitch W L ee DO [facility] CPT-71861 Level 3 Est. Patient 13:25:53 HEARING SPECIALIST Tavo toure MD [facility] CPT-01723 Level 3 Est. Patient 18:17:28 CDT Mitch W L ee [facility] CPT-06580 Level 3 Est. Patient 15:22:57 CDT Mitch W L ee DO [facility] CPT-32896 Level 3 Est. Patient 18:21:50 CDT Mitch W L ee DO [facility] CPT-57214 Level 3 Est. Patient 18:20:38 CDT Mitch W L ee DO [facility] CPT-28647 Level 3 Est. Patient 15:37:55 CDT Mitch W L ee [facility] CPT-46391 Level 2 Est. Patient 15:54:44 CDT Carmine benton MD [facility] CPT-83832 Level 3 Est. Patient 21:46:01 HEARING SPECIALIST Mitch W L ee DO [facility] CPT-69995 Level 3 Est. Patient 22:15:50 CDT Mitch W L ee [facility] CPT-53659 Level 3 Est. Patient 10:48:15 CDT Mitch W L ee [facility] CPT-24313 Level 3 Est. Patient 23:20:57 CDT Tavo toure MD [facility] CPT-76215 Level 3 Est. Patient 16:26:13 CDT Mitch Ambrose L ee [facility] Procedures Code Procedure Name Date Entry Date Standard Desc ription CPT-31305 Venipuncture Draw Fee 09:38:56 HEARING SPECIALIST CPT-86662 No Charge Offi Visit 21:36:07 CDT 1 CPT-47903 Venipuncture Draw Fee 10:13:28 HEARING SPECIALIST CPT-76642 Venipuncture Draw Fee 08:31:11 CDT CPT-04738 Aspir/Inject Med Joint 18:17:28 CDT CPT-86327 Venipuncture Draw Fee 10:13:30 CDT CPT-61425 Venipuncture Draw Fee 08:31:43 HEARING SPECIALIST CPT-JTINJ Joint Injection 18:34:50 CDT CPT-36521 Knee 3V 12:25:09 CDT CPT-79070 Venipuncture Draw Fee 12:15:57 CDT CPT-060 Medical Surveillance Exam 21:31:43 CDT 2011 CPT-58348 Venipuncture Draw Fee 08:32:05 HEARING SPECIALIST CPT-OV Office Visit 18:19:06 CDT
--- OUTSIDE RECORDS SUMMARY | 2020-01-18 12:56 | XMS REPORT | Clinical Summary ---
[...] Coronary atherosclerosis of unspecified type of vessel, chicken ranch or graft EDEMA 782.3 Resolved Mitch Urbina [...] 1 hour if symptoms persist. COLCHICINE 59 992457473 Active Mitch Urbina DO Active COUMADIN 1 MG TAB 2 tabs orally daily with the 5mg tab to equal 7mg daily WARFARIN SODIUM 79819226936 Active Norma Cazares Active COLCRYS 0.6 MG TABS 1 tab qid prn gout COLCHICINE 74051754206 Active Norma Cazares Active INVOKANA 100 MG ORAL TABS 1 tablet orally daily CANAGLIFLOZIN 88600246707 Active Mitch Urbina DO Active MINOXIDIL 2.5 MG TABS 1 tablet daily for high blood pressure 10/23 MINOXIDIL 89230132986 Active Domi Rivera MA Active AMLODIPINE BESYLATE 5 MG TABS 1 tablet by mouth daily AMLODIPINE BESYLATE 76010822971 Active Mitch Urbina DO Active MECLIZINE HCL 25 MG TAB 1 po tid 3 days, then 1/2 tab tid 3 days MECLIZINE HCL 51290077010 No Longer Active Corey SEGURA Active ALLOPURINOL 300 MG TABS Take 1 tablet by mouth daily 2 ALLOPURINOL 22817289905 No Longer Active Corey SEGURA Activ e CLONIDINE HCL 0.1 MG TABS 1 po bid 7 days, then 1/2 tab po b id 7 days CLONIDINE HCL 38543770165 No Longer Active Corey SEGURA Active COUMADIN 5 MG TABS 1 tab PO daily WARFARIN SODIUM 91447687619 Active Mitch Urbina DO Active COUMADIN 4 MG TABS 1 tablet daily WARFARIN SODI UM 05611175558 No Longer Active Corey SEGURA Active POLYTRIM 15259-6.1 UNIT/ML-% SOLN 1 drop in affected e ye every 3 hours while awake x 7 days POLYMYXIN B-TRIMETHOPRIM 89566695090 N o Longer Active Corey SEGURA Active LOSARTAN POTASSIUM-HCTZ 100-12.5 MG TABS 1 by mouth da rocky for high blood pressure LOSARTAN POTASSIUM-HCTZ 08379642192 Active Stephy Urbina DO Active LISINOPRIL-HYDROCHLOROTHIAZIDE 20-12.5 MG TABS 1 tab by mouth da rocky LISINOPRIL-HYDROCHLOROTHIAZIDE 89410676948 No Longer Active Mitch luis DO Active LISINOPRIL 20 MG TABS 1 tab po at HS LISINOPRIL 92158045222 No Longer Active Mitch Urbina DO Active COUMADIN 5 MG TABS 1 by mouth every other day WARFARIN SODIUM 43321053627 No Longer Active Mitch Urbina DO Active COUMADIN 6 MG TABS 1 by mouth every other day WARFARIN SODIUM 50485666266 No Longer Active Mitch Urbina DO Active SIMVASTATIN 40 MG TABS 1 tab daily at bedtime S IMVASTATIN 92917005678 Active Mitch Urbina DO Active SIMVASTATIN 20 MG TABS 1 tab daily at bedtime S IMVASTATIN 10236574343 No Longer Active Mitch Urbina DO Active LOVENOX 100 MG/ML SC SOLN One injection twice a day 09/15/15 ENOXAPARIN SODIUM 18742055625 No Longer Active Carmine Navarrete ctive JANUVIA 50 MG TABS Take one by mouth daily DIEGO GLIPTIN PHOSPHATE 15772382691 Active Mitch Urbina DO Active JANUVIA 100 MG TABS 1/2 by mouth every day DIEGO GLIPTIN PHOSPHATE 96006153944 No Longer Active Bijal Segal RN Active METFORMIN HCL 500 MG TABS 2 by mouth twice daily METFORMIN HCL 68293541557 Active Mitch Urbina DO Active GLIMEPIRIDE 4 MG TABS 1 tab po bid GLIMEPIRIDE 316708 19111 Active Mitch Arnol Carlitos DO Active COLCRYS 0.6 MG TABS 1 po q 6 hours prn gout pain 03/02 COLCHICINE 11078864442 No Longer Active Camila Reese Active LISINOPRIL 5 MG TABS 1 by mouth every day LISIN OPRIL 29467940776 No Longer Active Nguyen Perez Active KLOR-CON 20 MEQ PACK Take one by mouth daily 8 POTASSIUM CHLORIDE 52855705397 No Longer Active Nguyenmolly Perez Active FUROSEMIDE 40 MG TABS 1 by mouth daily FUROSEMI DE 27376152336 No Longer Active Nguyen Perez Active PROVIGIL 200 MG TABS 1/2 tab po q day MODAFINIL 89676 781673 Active Kathie Juan RPT,RMA Active PROVIGIL 100 MG TABS Take one by mouth daily MO DAFINIL 81392367535 No Longer Active Mitch Urbina DO Active BACTRIM DS 800-160 MG TAB 1 tab by mouth twice daily 2 TRIMETHOPRIM-SULFAMETHOXAZOLE 40914638571 No Longer Active Renan Hays MD Active FAMOTIDINE 20 MG TABS by mouth twice a day FAMOTI DINE 94315181077 Active Mitch Urbina DO Active ADULT ASPIRIN LOW STRENGTH 81 MG TBDP 1 by mouth every daily ASPIRIN 74237571735 Active Mitch Urbina DO Active METOPROLOL TARTRATE 50 MG TABS 1 by mouth twice daily METOPROLOL TARTRATE 87535610505 Active Mitch Urbina DO Active BACTRIM DS 800-160 MG TAB 1 tab by mouth twice daily 2 BACTRIM DS 800-160 MG TAB 019017 TRIMETHOPRIM-SULFAMETHOXAZOLE Inac tive PROVIGIL 100 MG TABS Take one by mouth daily 4 PROVIGIL 100 MG TABS 383665 MODAFINIL Inactive FUROSEMIDE 40 MG TABS 1 by mouth daily FU ROSEMIDE 40 MG TABS 908467 FUROSEMIDE Inactive KLOR-CON 20 MEQ PACK Take one by mouth daily 8 KLOR-CON 20 MEQ PACK 784936 POTASSIUM CHLORIDE Inactive LISINOPRIL 5 MG TABS 1 by mouth every day LISINOPRIL 5 MG TABS 165036 LISINOPRIL Inactive COLCRYS 0.6 MG TABS 1 po q 6 hours prn gout pain 03/02 COLCRYS 0.6 MG TABS 856782 COLCHICINE Inactive JANUVIA 100 MG TABS 1/2 by mouth every day JANUVI A 100 MG TABS SITAGLIPTIN PHOSPHATE Inactive SIMVASTATIN 20 MG TABS 1 tab daily at bedtime SIMVASTATIN 20 MG TABS 268805 SIMVASTATIN Inactive COUMADIN 6 MG TABS 1 by mouth every other day COUMADIN 6 MG TABS 531266 WARFARIN SODIUM Inactive COUMADIN 5 MG TABS 1 by mouth every other day COUMADIN 5 MG TABS 735632 WARFARIN SODIUM Inactive LISINOPRIL 20 MG TABS 1 tab po at HS KOKI NOPRIL 20 MG TABS 839635 LISINOPRIL Inactive LISINOPRIL-HYDROCHLOROTHIAZIDE 20-12.5 MG TABS 1 tab by mouth da rocky LISINOPRIL-HYDROCHLOROTHIAZIDE 20-12.5 MG TABS 931060 LISINOPRIL-HYDROCHLOROTHIAZIDE Inactive POLYTRIM 36008-3.1 UNIT/ML-% SOLN 1 drop in affected e ye every 3 hours while awake x 7 days POLYTRIM 76699-5.1 UNIT/ML-% SOLN 63705 7 POLYMYXIN B-TRIMETHOPRIM Inactive COUMADIN 4 MG TABS 1 tablet daily COUMADIN 4 MG TABS 357223 WARFARIN SODIUM Inactive CLONIDINE HCL 0.1 MG TABS 1 po bid 7 days, then 1/2 tab po b id 7 days CLONIDINE HCL 0.1 MG TABS 255235 CLONIDINE HCL I nactive ALLOPURINOL 300 MG TABS Take 1 tablet by mouth daily 2 ALLOPURINOL 300 MG TABS 528952 ALLOPURINOL Inactive MECLIZINE HCL 25 MG TAB 1 po tid 3 days, then 1/2 tab tid 3 days MECLIZINE HCL 25 MG TAB 145753 MECLIZINE HCL Inactive LOVENOX 100 MG/ML SC SOLN One injection twice a day 09/15/15 LOVENOX 100 MG/ML SC SOLN 090973 ENOXAPARIN SODIUM Inactive Vital Signs Date Name [...] CBC - Chemistry cholesterol, serum 136 mg/dL 885-414 4139/08/09 triglyceride, serum, fasting 187 mg/dL 30-200 HDL [...] 1.0-3.5 Encounters Code Encounter Date Provider Facility CPT-76605 Level 3 Est. Patient 14:21:06 CDT Mitch luis [facility] CPT-11968 Level 3 Est. Patient 14:52:06 CDT Joe kamara APRN [facility] CPT-36957 Level 3 Est. Patient 09:34:30 THREADER Mitch luis [facility] CPT-38062 Level 3 Est. Patient 09:37:15 CDT Mitch Ambrose L janelle [facility] CPT-79827 Level 3 Est. Patient 17:01:00 THREADER Mitch luis [facility] CPT-49735 Level 3 Est. Patient 13:53:19 THREADER Mitch luis [facility] CPT-74812 Level 3 Est. Patient 19:19:37 THREADER Mitch Ambrose L janelle [facility] CPT-07171 Level 3 Est. Patient 13:25:53 THREADER Tavo toure MD [facility] CPT-92528 Level 3 Est. Patient 18:17:28 CDT Mitch luis [facility] CPT-48504 Level 3 Est. Patient 15:22:57 CDT Mitch luis [facility] CPT-29711 Level 3 Est. Patient 18:21:50 CDT Mitch Ambrose L janelle [facility] CPT-46818 Level 3 Est. Patient 18:20:38 CDT Mitch W L ee [facility] CPT-67583 Level 3 Est. Patient 15:37:55 CDT Mitch Ambrose L janelle [facility] CPT-50503 Level 2 Est. Patient 15:54:44 CDT Carmine benton MD [facility] CPT-39939 Level 3 Est. Patient 21:46:01 THREADER Mitch luis [facility] CPT-33863 Level 3 Est. Patient 22:15:50 CDT Mitch Arnol luis [facility] CPT-43272 Level 3 Est. Patient 10:48:15 CDT Mitch luis [facility] CPT-60398 Level 3 Est. Patient 23:20:57 CDT Tavo toure MD [facility] CPT-12065 Level 3 Est. Patient 16:26:13 CDT Mitch Ambrose Nona janelle [facility] Procedures Code Procedure Name Date Entry Date Standard Desc ription CPT-21272 PT/INR - LAB USE ONLY 13:32:49 THREADER CPT-83855 Venipuncture Draw Fee 13:32:49 THREADER CPT-34799 PT/INR - LAB USE ONLY 10:34:49 THREADER CPT-59461 Venipuncture Draw Fee 10:34:48 THREADER CPT-68375 PT/INR - LAB USE ONLY 09:22:03 THREADER CPT-12669 Venipuncture Draw Fee 09:22:02 THREADER CPT-65998 Hemoccult IFOBT - LAB USE ONLY 10:27:22 CDT CPT-15081 Venipuncture Draw Fee 08:27:08 CDT CPT-42869 Liver Profile - LAB USE ONLY 08:27:07 CDT 2 CPT-37292 Microalbumin - LAB USE ONLY 08:27:07 CDT 20 25/05/09 CPT-13806 PT/INR - LAB USE ONLY 08:27:07 CDT CPT-57766 HGBA1C - LAB USE ONLY 08:27:07 CDT CPT-76226 CBC - LAB USE ONLY 08:27:07 CDT CPT-07314 Venipuncture Draw Fee 11:09:14 CDT CPT-13657 Venipuncture Draw Fee 08:32:21 THREADER CPT-78360 Venipuncture Draw Fee 09:38:56 THREADER CPT-63399 No Charge Offi Visit 21:36:07 CDT 1 CPT-11057 Venipuncture Draw Fee 10:13:28 THREADER CPT-69310 Venipuncture Draw Fee 08:31:11 CDT CPT-25007 Aspir/Inject Med Joint 18:17:28 CDT CPT-77017 Venipuncture Draw Fee 10:13:30 CDT CPT-42766 Venipuncture Draw Fee 08:31:43 THREADER CPT-JTINJ Joint Injection 18:34:50 CDT CPT-78664 Knee 3V 12:25:09 CDT CPT-74109 Venipuncture Draw Fee 12:15:57 CDT CPT-060 Medical Surveillance Exam 21:31:43 CDT 2011 CPT-24518 Venipuncture Draw Fee 08:32:05 THREADER CPT-OV Office Visit 18:19:06 CDT
--- OUTSIDE RECORDS SUMMARY | 2020-01-18 12:57 | XMS REPORT | Clinical Summary ---
Author Author Admin, Mitch Leon Organization [facility] Address Unknown Phone Unavailable [...] Coronary atherosclerosis of unspecified type of vessel, [place] or graft EDEMA 782.3 Active Mitch Urbina [...] 1 tablet by mouth daily AMLODIPINE BESYLATE 18969688314 Active Mitch Urbina DO Active MECLIZINE HCL 25 MG TAB 1 po tid 3 days, then 1/2 tab tid 3 days MECLIZINE HCL 27490011426 No Longer Active Corey SEGURA Active ALLOPURINOL 300 MG TABS Take 1 tablet by mouth daily 2 ALLOPURINOL 04738132147 No Longer Active Corey SEGURA Activ e CLONIDINE HCL 0.1 MG TABS 1 po bid 7 days, then 1/2 tab po b id 7 days CLONIDINE HCL 52275949890 No Longer Active Corey SEGURA Active COUMADIN 5 MG TABS 1 tab PO daily WARFARIN SODIUM 50463543631 Active Mitch Urbina DO Active COUMADIN 4 MG TABS 1 tablet daily WARFARIN SODI UM 88003395235 No Longer Active Corey SEGURA Active POLYTRIM 62109-4.1 UNIT/ML-% SOLN 1 drop in affected e ye every 3 hours while awake x 7 days POLYMYXIN B-TRIMETHOPRIM 54516351686 N o Longer Active Corey SEGURA Active LOSARTAN POTASSIUM-HCTZ 100-12.5 MG TABS 1 by mouth da rocky for high blood pressure LOSARTAN POTASSIUM-HCTZ 33359050736 Active Stephy Urbina DO Active LISINOPRIL-HYDROCHLOROTHIAZIDE 20-12.5 MG TABS 1 tab by mouth da rocky LISINOPRIL-HYDROCHLOROTHIAZIDE 77631501650 No Longer Active Mitch luis DO Active LISINOPRIL 20 MG TABS 1 tab po at HS LISINOPRIL 59427565353 No Longer Active Mitch Urbina DO Active COUMADIN 5 MG TABS 1 by mouth every other day WARFARIN SODIUM 38258185697 No Longer Active Mitch Urbina DO Active COUMADIN 6 MG TABS 1 by mouth every other day WARFARIN SODIUM 58656305732 No Longer Active Mitch Urbina DO Active COLCRYS 0.6 MG TABS 1 tab qid prn gout COLCHICINE 95159674819 Active Corey SEGURA Active SIMVASTATIN 40 MG TABS 1 tab daily at bedtime S IMVASTATIN 49296056104 Active Mitch Urbina DO Active SIMVASTATIN 20 MG TABS 1 tab daily at bedtime S IMVASTATIN 02174718998 No Longer Active Mitch Urbina DO Active LOVENOX 100 MG/ML SC SOLN One injection twice a day 09/15/15 ENOXAPARIN SODIUM 10431894949 No Longer Active Carmine Navarrete ctive JANUVIA 50 MG TABS Take one by mouth daily DIEGO GLIPTIN PHOSPHATE 17366148653 Active Corey Arias PA Active JANUVIA 100 MG TABS 1/2 by mouth every day DIEGO GLIPTIN PHOSPHATE 05852322826 No Longer Active Bijalseth Segal RN Active METFORMIN HCL 500 MG TABS 2 by mouth twice daily METFORMIN HCL 13421212781 Active Mitch Urbina DO Active GLIMEPIRIDE 4 MG TABS 1 tab po bid GLIMEPIRIDE 144653 56165 Active Mitch Urbina DO Active COLCRYS 0.6 MG TABS 1 po q 6 hours prn gout pain 03/02 COLCHICINE 35218602227 No Longer Active Camila Reese Active LISINOPRIL 5 MG TABS 1 by mouth every day LISIN OPRIL 05778220999 No Longer Active Nguyen Perez Active KLOR-CON 20 MEQ PACK Take one by mouth daily 8 POTASSIUM CHLORIDE 20212940190 No Longer Active Nguyen Perez Active FUROSEMIDE 40 MG TABS 1 by mouth daily FUROSEMI DE 97571814304 No Longer Active Nguyen Perez Active PROVIGIL 200 MG TABS 1/2 tab po q day MODAFINIL 57969 212320 Active Mitch Urbina DO Active PROVIGIL 100 MG TABS Take one by mouth daily MO DAFINIL 65107023302 No Longer Active Mitch Urbina DO Active BACTRIM DS 800-160 MG TAB 1 tab by mouth twice daily 2 TRIMETHOPRIM-SULFAMETHOXAZOLE 20434936853 No Longer Active Renan Hays MD Active FAMOTIDINE 20 MG TABS by mouth twice a day FAMOTI DINE 20549578972 Active Mitch Urbina DO Active ADULT ASPIRIN LOW STRENGTH 81 MG TBDP 1 by mouth every daily ASPIRIN 84935441488 Active Mitch Urbina DO Active METOPROLOL TARTRATE 50 MG TABS 1 by mouth twice daily METOPROLOL TARTRATE 82444345241 Active Mitch W Carl[place] DO Active BACTRIM DS 800-160 MG TAB 1 tab by mouth twice daily 2 BACTRIM DS 800-160 MG TAB TRIMETHOPRIM-SULFAMETHOXAZOLE Inac tive PROVIGIL 100 MG TABS Take one by mouth daily 4 PROVIGIL 100 MG TABS 960580 MODAFINIL Inactive FUROSEMIDE 40 MG TABS 1 by mouth daily FU ROSEMIDE 40 MG TABS 092093 FUROSEMIDE Inactive KLOR-CON 20 MEQ PACK Take one by mouth daily 8 KLOR-CON 20 MEQ PACK 949378 POTASSIUM CHLORIDE Inactive LISINOPRIL 5 MG TABS 1 by mouth every day LISINOPRIL 5 MG TABS 812551 LISINOPRIL Inactive COLCRYS 0.6 MG TABS 1 po q 6 hours prn gout pain 03/02 COLCRYS 0.6 MG TABS COLCHICINE Inactive JANUVIA 100 MG TABS 1/2 by mouth every day JANUVI A 100 MG TABS SITAGLIPTIN PHOSPHATE Inactive SIMVASTATIN 20 MG TABS 1 tab daily at bedtime SIMVASTATIN 20 MG TABS 842062 SIMVASTATIN Inactive COUMADIN 6 MG TABS 1 by mouth every other day COUMADIN 6 MG TABS 294763 WARFARIN SODIUM Inactive COUMADIN 5 MG TABS 1 by mouth every other day COUMADIN 5 MG TABS 845592 WARFARIN SODIUM Inactive LISINOPRIL 20 MG TABS 1 tab po at HS KOKI NOPRIL 20 MG TABS 155797 LISINOPRIL Inactive LISINOPRIL-HYDROCHLOROTHIAZIDE 20-12.5 MG TABS 1 tab by mouth da rocky LISINOPRIL-HYDROCHLOROTHIAZIDE 20-12.5 MG TABS 158234 LISINOPRIL-HYDROCHLOROTHIAZIDE Inactive POLYTRIM 64526-0.1 UNIT/ML-% SOLN 1 drop in affected e ye every 3 hours while awake x 7 days POLYTRIM 98434-6.1 UNIT/ML-% SOLN 39194 7 POLYMYXIN B-TRIMETHOPRIM Inactive COUMADIN 4 MG TABS 1 tablet daily COUMADIN 4 MG TABS 636085 WARFARIN SODIUM Inactive CLONIDINE HCL 0.1 MG TABS 1 po bid 7 days, then 1/2 tab po b id 7 days CLONIDINE HCL 0.1 MG TABS 523179 CLONIDINE HCL I nactive ALLOPURINOL 300 MG TABS Take 1 tablet by mouth daily 2 ALLOPURINOL 300 MG TABS 229517 ALLOPURINOL Inactive MECLIZINE HCL 25 MG TAB 1 po tid 3 days, then 1/2 tab tid 3 days MECLIZINE HCL 25 MG TAB 133260 MECLIZINE HCL Inactive LOVENOX 100 MG/ML SC SOLN One injection twice a day 09/15/15 LOVENOX 100 MG/ML SC SOLN 580748 ENOXAPARIN SODIUM Inactive Vital Signs Date Name [...] Acid - Chemistry sodium, serum 136 mmol/L 698-144 6670/07/25 potassium, serum 4.6 mmol/L 3.5-5.2 chloride, serum [...] Panel - Chemistry sodium, serum 137 mmol/L 053-973 7265/11/14 potassium, serum 4.4 mmol/L 3.5-5.2 chloride, serum [...] 8.0 % 4.3-6.0 cholesterol, serum 130 mg/dL 613-263 7244/11/14 triglyceride, serum, fasting 288 mg/dL 30-200 HDL cholesterol, serum 33 mg/dL 32-96 LDL cholesterol, serum 39 mg/dL 0-130 Lab Report: Comp. Metabolic Panel, HGBA1 C, Lipid Panel, Prothrombin Time - Chemistry sodium, serum 136 mmol/L 239-376 8166/12/02 potassium, serum 4.4 mmol/L 3.5-5.2 chloride, serum [...] 7.6 % 4.3-6.0 cholesterol, serum 117 mg/dL 837-288 0118/12/02 triglyceride, serum, fasting 226 mg/dL 30-200 HDL [...] 1.0-3.5 Encounters Code Encounter Date Provider Facility CPT-09826 Level 3 Est. Patient 17:01:00 [employer] [facility] Mitch luis [facility] CPT-44764 Level 3 Est. Patient 13:53:19 [employer] [facility] [facility] [employer] Mitch luis [facility] CPT-49881 Level 3 Est. Patient 19:19:37 [employer] [facility] [facility] [employer] Mitch luis [facility] CPT-14641 Level 3 Est. Patient 13:25:53 [employer] [facility] [facility] [employer] Tavo toure MD [facility] CPT-75053 Level 3 Est. Patient 18:17:28 CDT Mitch Arnol luis [facility] CPT-11440 Level 3 Est. Patient 15:22:57 CDT Mitch luis [facility] CPT-48489 Level 3 Est. Patient 18:21:50 CDT Mitch luis [facility] CPT-36855 Level 3 Est. Patient 18:20:38 CDT Mitch Arnol luis [facility] CPT-18852 Level 3 Est. Patient 15:37:55 CDT Mitch Ambrose Nona janelle [facility] CPT-81836 Level 2 Est. Patient 15:54:44 CDT Carmine benton MD [facility]-96409 Level 3 Est. Patient 21:46:01 [employer] [facility] [employer] Mitch luis [facility] CPT-87028 Level 3 Est. Patient 22:15:50 CDT Mitch luis [facility] CPT-63280 Level 3 Est. Patient 10:48:15 CDT Mitch luis [facility] CPT-54955 Level 3 Est. Patient 23:20:57 CDT Tavo toure MD [facility] CPT-37691 Level 3 Est. Patient 16:26:13 CDT Mitch luis [facility] Procedures Code Procedure Name Date Entry Date Standard Desc ription CPT-85212 Venipuncture Draw Fee 10:13:28 [employer] [facility] [employer] CPT-10691 Venipuncture Draw Fee 08:31:11 CDT CPT-76924 Aspir/Inject Med Joint 18:17:28 CDT CPT-06475 Venipuncture Draw Fee 10:13:30 CDT CPT-70260 Venipuncture Draw Fee 08:31:43 [employer] [facility] [employer] CPT-JTINJ Joint Injection 18:34:50 CDT CPT-17266 Knee 3V 12:25:09 CDT CPT-60506 Venipuncture Draw Fee 12:15:57 CDT CPT-060 Medical Surveillance Exam 21:31:43 CDT 2011 CPT-56899 Venipuncture Draw Fee 08:32:05 [employer] CPT-OV Office Visit 18:19:06 CDT
--- OUTSIDE RECORDS SUMMARY | 2020-01-18 12:57 | XMS REPORT | Clinical Summary ---
[...] MG ORAL TABS 1 po BID GLIMEPIRIDE 17205 327523 Active Ana Wallace Active KEFLEX 500 MG CAP 1 po qid CEPHALEXIN 062638886 20 No Longer Active Mitch Urbina DO Active LOSARTAN POTASSIUM 100 MG TABS 1 pill by mouth daily, for bl ood pressure LOSARTAN POTASSIUM 63838028301 Active Ana Wallace Active AMLODIPINE BESYLATE 5 MG TABS 1 tablet by mouth daily AMLODIPINE BESYLATE 91148967451 No Longer Active Joe Williamson APRN Active MITIGARE 0.6 MG ORAL CAPS 2 capsules at onset of gout pain, then take one capsule at 1 hour if symptoms persist. COLCHICINE 59 834742427 Active Mitch Urbina DO Active COUMADIN 1 MG TAB 2 tabs orally daily with the 5mg tab to equal 7mg daily WARFARIN SODIUM 84993058871 Active Ana Wallace Active COLCRYS 0.6 MG TABS 1 tab qid prn gout COLCHICINE 51133948504 Active Norma Cazares Active INVOKANA 100 MG ORAL TABS 1 tablet orally daily CANAGLIFLOZIN 29617581672 Active Mitch Urbina DO Active MINOXIDIL 2.5 MG TABS 1 tablet daily for high blood pressure 10/23 MINOXIDIL 77864077862 Active Mitch Urbina DO Active MECLIZINE HCL 25 MG TAB 1 po tid 3 days, then 1/2 tab tid 3 days MECLIZINE HCL 64116996422 No Longer Active Corey SEGURA Active ALLOPURINOL 300 MG TABS Take 1 tablet by mouth daily 2 ALLOPURINOL 23185366024 No Longer Active Corey SEGURA Activ e CLONIDINE HCL 0.1 MG TABS 1 po bid 7 days, then 1/2 tab po b id 7 days CLONIDINE HCL 55429248971 No Longer Active Corey SEGURA Active COUMADIN 5 MG TABS 1 tab PO daily WARFARIN SODIUM 03104537546 Active Mitch Urbina DO Active COUMADIN 4 MG TABS 1 tablet daily WARFARIN SODI UM 65815073330 No Longer Active Corey SEGURA Active POLYTRIM 50117-0.1 UNIT/ML-% SOLN 1 drop in affected e ye every 3 hours while awake x 7 days POLYMYXIN B-TRIMETHOPRIM 10500773014 N o Longer Active Corey SEGURA Active LOSARTAN POTASSIUM-HCTZ 100-12.5 MG TABS 1 by mouth [place] for high blood pressure LOSARTAN POTASSIUM-HCTZ 19839059203 No Longer A ctive Mitch Urbina DO Active LISINOPRIL-HYDROCHLOROTHIAZIDE 20-12.5 MG TABS 1 tab by mouth da rocky LISINOPRIL-HYDROCHLOROTHIAZIDE 79357363924 No Longer Active Mitch luis DO Active LISINOPRIL 20 MG TABS 1 tab po at HS LISINOPRIL 19001333922 No Longer Active Mitch Urbina DO Active COUMADIN 5 MG TABS 1 by mouth every other day WARFARIN SODIUM 35674417235 No Longer Active Mitch Urbina DO Active COUMADIN 6 MG TABS 1 by mouth every other day WARFARIN SODIUM 01595090422 No Longer Active Mitch Urbina DO Active SIMVASTATIN 40 MG TABS 1 tab daily at bedtime S IMVASTATIN 44732021714 Active Mitch Urbina DO Active SIMVASTATIN 20 MG TABS 1 tab daily at bedtime S IMVASTATIN 74906477359 No Longer Active Mitch Urbina DO Active LOVENOX 100 MG/ML SC SOLN One injection twice a day 09/15/15 ENOXAPARIN SODIUM 45908149515 No Longer Active Carmine Yusuf MD A ctive JANUVIA 50 MG TABS Take one by mouth daily DIEGO GLIPTIN PHOSPHATE 15297786546 Active Mitch Urbina DO Active JANUVIA 100 MG TABS 1/2 by mouth every day DIEGO GLIPTIN PHOSPHATE 39781915770 No Longer Active Bijal Segal RN Active METFORMIN HCL 500 MG TABS 2 by mouth twice daily METFORMIN HCL 56909301599 Active Mitch Urbina DO Active COLCRYS 0.6 MG TABS 1 po q 6 hours prn gout pain 03/02 COLCHICINE 05852597469 No Longer Active Camila Reese Active LISINOPRIL 5 MG TABS 1 by mouth every day LISIN OPRIL 58043847726 No Longer Active Nguyen Perez Active KLOR-CON 20 MEQ PACK Take one by mouth daily 8 POTASSIUM CHLORIDE 31001758742 No Longer Active Nguyen Perez Active FUROSEMIDE 40 MG TABS 1 by mouth daily FUROSEMI DE 33868638632 No Longer Active Nguyen Perez Active PROVIGIL 200 MG TABS 1/2 tab po q day MODAFINIL 17989 373613 Active Mitch Urbina DO Active PROVIGIL 100 MG TABS Take one by mouth daily MO DAFINIL 52413075129 No Longer Active Mitch Urbina DO Active BACTRIM DS 800-160 MG TAB 1 tab by mouth twice daily 2 TRIMETHOPRIM-SULFAMETHOXAZOLE 15362608247 No Longer Active Renan Hays MD Active FAMOTIDINE 20 MG TABS by mouth twice a day FAMOTI DINE 86791204676 Active Mitch Urbina DO Active ADULT ASPIRIN LOW STRENGTH 81 MG TBDP 1 by mouth every daily ASPIRIN 38780977321 Active Mitch Urbina DO Active METOPROLOL TARTRATE 50 MG TABS 1 by mouth twice daily METOPROLOL TARTRATE 60972997766 Active Mitch Urbina DO Active BACTRIM DS 800-160 MG TAB 1 tab by mouth twice daily 2 BACTRIM DS 800-160 MG TAB 776361 TRIMETHOPRIM-SULFAMETHOXAZOLE Inac tive PROVIGIL 100 MG TABS Take one by mouth daily 4 PROVIGIL 100 MG TABS 415683 MODAFINIL Inactive FUROSEMIDE 40 MG TABS 1 by mouth daily FU ROSEMIDE 40 MG TABS 787960 FUROSEMIDE Inactive KLOR-CON 20 MEQ PACK Take one by mouth daily 8 KLOR-CON 20 MEQ PACK 1152078 POTASSIUM CHLORIDE Inactive LISINOPRIL 5 MG TABS 1 by mouth every day LISINOPRIL 5 MG TABS 113595 LISINOPRIL Inactive COLCRYS 0.6 MG TABS 1 po q 6 hours prn gout pain 03/02 COLCRYS 0.6 MG TABS 905862 COLCHICINE Inactive JANUVIA 100 MG TABS 1/2 by mouth every day JANUVI A 100 MG TABS SITAGLIPTIN PHOSPHATE Inactive SIMVASTATIN 20 MG TABS 1 tab daily at bedtime SIMVASTATIN 20 MG TABS 710240 SIMVASTATIN Inactive COUMADIN 6 MG TABS 1 by mouth every other day COUMADIN 6 MG TABS 529156 WARFARIN SODIUM Inactive COUMADIN 5 MG TABS 1 by mouth every other day COUMADIN 5 MG TABS 274080 WARFARIN SODIUM Inactive LISINOPRIL 20 MG TABS 1 tab po at HS KOKI NOPRIL 20 MG TABS 613569 LISINOPRIL Inactive LISINOPRIL-HYDROCHLOROTHIAZIDE 20-12.5 MG TABS 1 tab by mouth da rocky LISINOPRIL-HYDROCHLOROTHIAZIDE 20-12.5 MG TABS 328411 LISINOPRIL-HYDROCHLOROTHIAZIDE Inactive POLYTRIM 12926-1.1 UNIT/ML-% SOLN 1 drop in affected e ye every 3 hours while awake x 7 days POLYTRIM 39953-4.1 UNIT/ML-% SOLN 94682 7 POLYMYXIN B-TRIMETHOPRIM Inactive COUMADIN 4 MG TABS 1 tablet daily COUMADIN 4 MG TABS 646407 WARFARIN SODIUM Inactive CLONIDINE HCL 0.1 MG TABS 1 po bid 7 days, then 1/2 tab po b id 7 days CLONIDINE HCL 0.1 MG TABS 902366 CLONIDINE HCL I nactive ALLOPURINOL 300 MG TABS Take 1 tablet by mouth daily 2 ALLOPURINOL 300 MG TABS 299174 ALLOPURINOL Inactive MECLIZINE HCL 25 MG TAB 1 po tid 3 days, then 1/2 tab tid 3 days MECLIZINE HCL 25 MG TAB 873519 MECLIZINE HCL Inactive AMLODIPINE BESYLATE 5 MG TABS 1 tablet by mouth daily AMLODIPINE BESYLATE 5 MG TABS 897471 AMLODIPINE BESYLATE Inactive KEFLEX 500 MG CAP 1 po qid KEFLEX 500 MG CAP 30 9114 CEPHALEXIN Inactive LOVENOX 100 MG/ML SC SOLN One injection twice a day 09/15/15 LOVENOX 100 MG/ML SC SOLN 341042 ENOXAPARIN SODIUM Inactive Vital Signs Date Name [...] - Chem istry sodium, serum 139 mmol/L 782-048 6003/07/17 potassium, serum 4.2 mmol/L 3.5-5.2 chloride, serum 102 mmol/L 98-107 carbon dioxide, venous blood 28.9 mmol/L 21.0-32 .0 blood glucose 211 mg/dL 65-110 calcium, serum 10.6 mg/dL 8.5-10.1 urea nitrogen, blood 29 mg/dL 7-18 creatinine, serum 1.24 mg/dL 0.60-1.30 sodium, serum 141 mmol/L 176-664 6047/08/07 potassium, serum 4.5 mmol/L 3.5-5.2 chloride, serum [...] ... - Chemistry sodium, serum 144 mmol/L 414-882 5457/06/12 carbon dioxide, venous blood 26.6 mmol/L 21.0-32 [...] 1.0-3.5 Encounters Code Encounter Date Provider Facility CPT-18833 Level 3 Est. Patient 18:25:53 CDT Mitch luis [facility] CPT-03487 Level 3 Est. Patient 19:43:34 CDT Mitch luis [facility] CPT-39654 Level 4 Est. Patient 09:30:18 CDT Mitch luis [facility] CPT-64057 Level 3 Est. Patient 15:10:14 CDT Joe Jason courtangela [facility] CPT-74970 Level 3 Est. Patient 15:03:46 CDT Joe Jason anh [facility] CPT-12302 Level 3 Est. Patient 14:21:06 CDT Mitch luis [facility] CPT-60039 Level 3 Est. Patient 14:52:06 CDT Joe Jason kamara [facility] CPT-53918 Level 3 Est. Patient 09:34:30 [employer] Mitch luis [facility] CPT-93593 Level 3 Est. Patient 09:37:15 CDT Mitch luis [facility] CPT-47442 Level 3 Est. Patient 17:01:00 [employer] Mitch luis [facility] CPT-53748 Level 3 Est. Patient 13:53:19 [employer] Mitch luis [facility] CPT-68547 Level 3 Est. Patient 19:19:37 [employer] Mitch luis [facility] CPT-58646 Level 3 Est. Patient 13:25:53 [employer] Tavo toure MD [facility] CPT-56179 Level 3 Est. Patient 18:17:28 CDT Mitch luis [facility] CPT-64713 Level 3 Est. Patient 15:22:57 CDT Mitch luis [facility] CPT-59474 Level 3 Est. Patient 18:21:50 CDT Mitch W L janelle [facility] CPT-88770 Level 3 Est. Patient 18:20:38 CDT Mitch W L janelle [facility] CPT-43357 Level 3 Est. Patient 15:37:55 CDT Mitch W L janelle [facility] CPT-78247 Level 2 Est. Patient 15:54:44 CDT Carmine benton MD [facility] CPT-54498 Level 3 Est. Patient 21:46:01 [employer] Mitch luis [facility] CPT-57945 Level 3 Est. Patient 22:15:50 CDT Mitch luis [facility] CPT-23692 Level 3 Est. Patient 10:48:15 CDT Mitch luis [facility] CPT-46484 Level 3 Est. Patient 23:20:57 CDT Tavo toure MD [facility] CPT-84357 Level 3 Est. Patient 16:26:13 CDT Mitch Ambrose Nona luis [facility] Procedures Code Procedure Name Date Entry Date Standard Desc ription CPT-19155 Venipuncture Draw Fee 09:26:17 CDT CPT-06117 PT/INR - LAB USE ONLY 13:32:49 [employer] CPT-05777 Venipuncture Draw Fee 13:32:49 [employer] CPT-96259 PT/INR - LAB USE ONLY 10:34:49 [employer] CPT-23162 Venipuncture Draw Fee 10:34:48 [employer] CPT-65955 PT/INR - LAB USE ONLY 09:22:03 [employer] CPT-99567 Venipuncture Draw Fee 09:22:02 [employer] CPT-86967 Hemoccult IFOBT - LAB USE ONLY 10:27:22 CDT CPT-34534 Venipuncture Draw Fee 08:27:08 CDT CPT-45483 Liver Profile - LAB USE ONLY 08:27:07 CDT 2 CPT-24914 Microalbumin - LAB USE ONLY 08:27:07 CDT 20 25/05/09 CPT-11678 PT/INR - LAB USE ONLY 08:27:07 CDT CPT-87886 HGBA1C - LAB USE ONLY 08:27:07 CDT CPT-36510 CBC - LAB USE ONLY 08:27:07 CDT CPT-94959 Venipuncture Draw Fee 11:09:14 CDT CPT-67477 Venipuncture Draw Fee 08:32:21 [employer] CPT-09000 Venipuncture Draw Fee 09:38:56 [employer] CPT-38715 No Charge Offi Visit 21:36:07 CDT 1 CPT-73202 Venipuncture Draw Fee 10:13:28 [employer] CPT-91365 Venipuncture Draw Fee 08:31:11 CDT CPT-97077 Aspir/Inject Med Joint 18:17:28 CDT CPT-48689 Venipuncture Draw Fee 10:13:30 CDT CPT-51396 Venipuncture Draw Fee 08:31:43 [employer] CPT-JTINJ Joint Injection 18:34:50 CDT CPT-11003 Knee 3V 12:25:09 CDT CPT-01930 Venipuncture Draw Fee 12:15:57 CDT CPT-060 Medical Surveillance Exam 21:31:43 CDT 2011 CPT-54987 Venipuncture Draw Fee 08:32:05 [employer] CPT-OV Office Visit 18:19:06 CDT
--- OUTSIDE RECORDS SUMMARY | 2020-01-18 12:57 | XMS REPORT | Clinical Summary ---
Author Author Admin, Mitch Leon Organization [facility] Address Unknown Phone Unavailable Allergies, [...] Coronary atherosclerosis of unspecified type of vessel, [place] or graft EDEMA 782.3 Active Mitch Urbina [...] 1 tablet by mouth daily AMLODIPINE BESYLATE 51525679007 Active Mitch Urbina DO Active MECLIZINE HCL 25 MG TAB 1 po tid 3 days, then 1/2 tab tid 3 days MECLIZINE HCL 70725050424 No Longer Active Corey SEGURA Active ALLOPURINOL 300 MG TABS Take 1 tablet by mouth daily 2 ALLOPURINOL 10196581642 No Longer Active Corey SEGURA Activ e CLONIDINE HCL 0.1 MG TABS 1 po bid 7 days, then 1/2 tab po b id 7 days CLONIDINE HCL 02677902081 No Longer Active Corey SEGURA Active COUMADIN 5 MG TABS 1 tab PO daily WARFARIN SODIUM 15451887720 Active Mitch Urbina DO Active COUMADIN 4 MG TABS 1 tablet daily WARFARIN SODI UM 83584613022 No Longer Active Corey SEGURA Active POLYTRIM 32091-2.1 UNIT/ML-% SOLN 1 drop in affected e ye every 3 hours while awake x 7 days POLYMYXIN B-TRIMETHOPRIM 52495549538 N o Longer Active Corey SEGURA Active LOSARTAN POTASSIUM-HCTZ 100-12.5 MG TABS 1 by mouth da rocky for high blood pressure LOSARTAN POTASSIUM-HCTZ 89021921332 Active Stephy Urbina DO Active LISINOPRIL-HYDROCHLOROTHIAZIDE 20-12.5 MG TABS 1 tab by mouth da rocky LISINOPRIL-HYDROCHLOROTHIAZIDE 38440476090 No Longer Active Mitch luis DO Active LISINOPRIL 20 MG TABS 1 tab po at HS LISINOPRIL 81552842281 No Longer Active Mitch Urbina DO Active COUMADIN 5 MG TABS 1 by mouth every other day WARFARIN SODIUM 05372579140 No Longer Active Mitch Urbina DO Active COUMADIN 6 MG TABS 1 by mouth every other day WARFARIN SODIUM 10539550771 No Longer Active Mitch Urbina DO Active COLCRYS 0.6 MG TABS 1 tab qid prn gout COLCHICINE 43926804712 Active Mitch Urbina DO Active SIMVASTATIN 40 MG TABS 1 tab daily at bedtime S IMVASTATIN 12067995037 Active Mitch Urbina DO Active SIMVASTATIN 20 MG TABS 1 tab daily at bedtime S IMVASTATIN 25928589996 No Longer Active Mitch Uribna DO Active LOVENOX 100 MG/ML SC SOLN One injection twice a day 09/15/15 ENOXAPARIN SODIUM 49672929376 No Longer Active Carmine Navarrete ctive JANUVIA 50 MG TABS Take one by mouth daily DIEGO GLIPTIN PHOSPHATE 11429819577 Active Mitch Urbina DO Active JANUVIA 100 MG TABS 1/2 by mouth every day DIEGO GLIPTIN PHOSPHATE 86567216915 No Longer Active Bijal Philipp RN Active METFORMIN HCL 500 MG TABS 2 by mouth twice daily METFORMIN HCL 06708864266 Active Mitch Urbina DO Active GLIMEPIRIDE 4 MG TABS 1 tab po bid GLIMEPIRIDE 307584 87224 Active Mitch Urbina DO Active COLCRYS 0.6 MG TABS 1 po q 6 hours prn gout pain 03/02 COLCHICINE 41809515274 No Longer Active Camila Reese Active LISINOPRIL 5 MG TABS 1 by mouth every day LISIN OPRIL 46114363319 No Longer Active Nguyen Perez Active KLOR-CON 20 MEQ PACK Take one by mouth daily 8 POTASSIUM CHLORIDE 66483690170 No Longer Active Nguyen Perez Active FUROSEMIDE 40 MG TABS 1 by mouth daily FUROSEMI DE 09889467955 No Longer Active Nguyen Perez Active PROVIGIL 200 MG TABS 1/2 tab po q day MODAFINIL 54981 387612 Active Mitch Urbina DO Active PROVIGIL 100 MG TABS Take one by mouth daily MO DAFINIL 92170660683 No Longer Active Mitch Urbina DO Active BACTRIM DS 800-160 MG TAB 1 tab by mouth twice daily 2 TRIMETHOPRIM-SULFAMETHOXAZOLE 23798449389 No Longer Active Renan Hays MD Active FAMOTIDINE 20 MG TABS by mouth twice a day FAMOTI DINE 16626211522 Active Mitch Urbina DO Active ADULT ASPIRIN LOW STRENGTH 81 MG TBDP 1 by mouth every daily ASPIRIN 07843620824 Active Mitch Urbina DO Active METOPROLOL TARTRATE 50 MG TABS 1 by mouth twice daily METOPROLOL TARTRATE 98390109009 Active Mitch W Carlitos DO Active BACTRIM DS 800-160 MG TAB 1 tab by mouth twice daily 2 BACTRIM DS 800-160 MG TAB TRIMETHOPRIM-SULFAMETHOXAZOLE Inac tive PROVIGIL 100 MG TABS Take one by mouth daily 4 PROVIGIL 100 MG TABS 968252 MODAFINIL Inactive FUROSEMIDE 40 MG TABS 1 by mouth daily FU ROSEMIDE 40 MG TABS 060786 FUROSEMIDE Inactive KLOR-CON 20 MEQ PACK Take one by mouth daily 8 KLOR-CON 20 MEQ PACK 829937 POTASSIUM CHLORIDE Inactive LISINOPRIL 5 MG TABS 1 by mouth every day LISINOPRIL 5 MG TABS 630120 LISINOPRIL Inactive COLCRYS 0.6 MG TABS 1 po q 6 hours prn gout pain 03/02 COLCRYS 0.6 MG TABS COLCHICINE Inactive JANUVIA 100 MG TABS 1/2 by mouth every day JANUVI A 100 MG TABS SITAGLIPTIN PHOSPHATE Inactive SIMVASTATIN 20 MG TABS 1 tab daily at bedtime SIMVASTATIN 20 MG TABS 631186 SIMVASTATIN Inactive COUMADIN 6 MG TABS 1 by mouth every other day COUMADIN 6 MG TABS 492409 WARFARIN SODIUM Inactive COUMADIN 5 MG TABS 1 by mouth every other day COUMADIN 5 MG TABS 270985 WARFARIN SODIUM Inactive LISINOPRIL 20 MG TABS 1 tab po at HS KOKI NOPRIL 20 MG TABS 962364 LISINOPRIL Inactive LISINOPRIL-HYDROCHLOROTHIAZIDE 20-12.5 MG TABS 1 tab by mouth da rocky LISINOPRIL-HYDROCHLOROTHIAZIDE 20-12.5 MG TABS 733931 LISINOPRIL-HYDROCHLOROTHIAZIDE Inactive POLYTRIM 45823-6.1 UNIT/ML-% SOLN 1 drop in affected e ye every 3 hours while awake x 7 days POLYTRIM 28752-9.1 UNIT/ML-% SOLN 28968 7 POLYMYXIN B-TRIMETHOPRIM Inactive COUMADIN 4 MG TABS 1 tablet daily COUMADIN 4 MG TABS 559794 WARFARIN SODIUM Inactive CLONIDINE HCL 0.1 MG TABS 1 po bid 7 days, then 1/2 tab po b id 7 days CLONIDINE HCL 0.1 MG TABS 184670 CLONIDINE HCL I nactive ALLOPURINOL 300 MG TABS Take 1 tablet by mouth daily 2 ALLOPURINOL 300 MG TABS 034301 ALLOPURINOL Inactive MECLIZINE HCL 25 MG TAB 1 po tid 3 days, then 1/2 tab tid 3 days MECLIZINE HCL 25 MG TAB 762543 MECLIZINE HCL Inactive LOVENOX 100 MG/ML SC SOLN One injection twice a day 09/15/15 LOVENOX 100 MG/ML SC SOLN 763629 ENOXAPARIN SODIUM Inactive Vital Signs Date Name [...] Acid - Chemistry sodium, serum 136 mmol/L 056-777 1713/07/25 potassium, serum 4.6 mmol/L 3.5-5.2 chloride, serum [...] - Hematology hemoglobin, blood 12.8 g/dL 13.5-17.5 mean corpuscular hemoglobin concentration, RBC 32.0 G/DL % 31.8-35.4 red blood cell distribution width 18.3 % 11 .6-14.8 platelet count 277 10^3/MM^3 10*3/mm3 035-673 0011/07/25 hematocrit, blood 40.1 % 41.0-53.0 leukocyte count, blood 6.6 10^3/MM^3 10*3/mm3 4.6-10.2 erythrocyte (RBC) count 5.02 10^6/MM^3 10*6/mm3 4.69-6.1 3 mean corpuscular volume, RBC 80 fL 80-97 mean corpuscular hemoglobin, RBC 25.6 pg 27. 0-31.2 Lab Report: CBC, Comp. Metabolic Panel, HGBA1C, MICROALBUMIN, Uric Acid - Lab microalbumin, urine 30 0-19 Lab Report: Comp. Metabolic Panel, HGBA1 C, Lipid Panel - Chemistry sodium, serum 137 mmol/L 433-362 0587/11/14 creatinine, serum 1.30 mg/dL 0.60-1.30 alanine aminotransferase (SGPT), serum 38 U/L 12-78 aspartate aminotransferase (SGOT), serum 34 U/L 15-37 calcium, serum 10.4 mg/dL 8.5-10.1 bilirubin, serum, total 0.90 mg/dL 0.00-1.00 hemoglobin A1C, blood, as % of total hemoglobin 8.0 % 4.3-6.0 cholesterol, serum 130 mg/dL 164-419 0859/11/14 triglyceride, serum, fasting 288 mg/dL 30-200 HDL cholesterol, serum 33 mg/dL 32-96 LDL cholesterol, serum 39 mg/dL 0-130 potassium, serum 4.4 mmol/L 3.5-5.2 chloride, serum 100 mmol/L 98-107 carbon dioxide, venous blood 33.0 mmol/L 21.0-32 .0 blood glucose 181 mg/dL 65-110 urea nitrogen, blood 28 mg/dL 7-18 Lab Report: Comp. Metabolic Panel, HGBA1 C, Lipid Panel, Prothrombin Time - Chemistry sodium, serum 136 mmol/L 569-609 1998/12/02 potassium, serum 4.4 mmol/L 3.5-5.2 chloride, serum 101 mmol/L 98-107 carbon dioxide, venous blood 29.0 mmol/L 21.0-32 .0 blood glucose 149 mg/dL 65-110 bilirubin, serum, total 0.60 mg/dL 0.00-1.00 hemoglobin A1C, blood, as % of total hemoglobin 7.6 % 4.3-6.0 cholesterol, serum 117 mg/dL 821-734 8514/12/02 triglyceride, serum, fasting 226 mg/dL 30-200 HDL cholesterol, serum 30 mg/dL 32-96 LDL cholesterol, serum 42 mg/dL 0-130 urea nitrogen, blood 29 mg/dL 7-18 creatinine, serum 1.20 mg/dL 0.60-1.30 alanine aminotransferase (SGPT), serum 46 U/L 12-78 aspartate aminotransferase (SGOT), serum 34 U/L 15-37 calcium, serum 10.3 mg/dL 8.5-10.1 Lab Report: Comp. Metabolic Panel, HGBA1 C, [...] 11.1-13.4 international normalized ratio (INR) 1.7 1.0-3.5 international normalized ratio (INR) 2.2 1.0-3.5 prothrombin time (patient) 18.4 SECS s 11.1-13.4 prothrombin time (patient) 19.9 SECS s 11.1-13.4 international normalized ratio (INR) 2.6 1.0-3.5 international normalized ratio (INR) 1.9 1.0-3.5 prothrombin time (patient) 16.8 SECS s 11.1-13.4 Encounters Code Encounter Date Provider Facility CPT-91072 Level 3 Est. 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 Patient 18:17:28 CDT Mitch luis [facility] CPT-60940 Level 3 Est. Patient 15:22:57 CDT Mitch luis [facility] CPT-34951 Level 3 Est. Patient 18:21:50 CDT Mitch Ambrose L janelle [facility] CPT-65159 Level 3 Est. Patient 18:20:38 CDT Mitch Ambrose L janelle [facility] CPT-90503 Level 3 Est. Patient 15:37:55 CDT Mitch W L janelle [facility] CPT-69475 Level 2 Est. Patient 15:54:44 CDT Carmine benton MD [facility]-01530 Level 3 Est. 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 Patient 22:15:50 CDT Mitch luis [facility] CPT-43467 Level 3 Est. Patient 10:48:15 CDT Mitch luis [facility] CPT-26034 Level 3 Est. Patient 23:20:57 CDT Tavo toure MD [facility] CPT-96353 Level 3 Est. 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
--- OUTSIDE RECORDS SUMMARY | 2020-01-18 12:57 | XMS REPORT | Clinical Summary ---
Author Author Admin, Mitch Leon Organization [facility] [employer] Address Unknown Phone Unavailable Allergies, Adverse [...] Coronary atherosclerosis of unspecified type of vessel, [place] or graft EDEMA 782.3 Resolved Mitch Urbina [...] ORAL TABLET 1 po BID GLIMEPIRID E 28069305635 Active Ana Wallace Active KEFLEX 500 MG ORAL CAPSULE 1 po qid CEPHALEXI N 00424929763 No Longer Active Mitch Urbina DO Active LOSARTAN POTASSIUM 100 MG ORAL TABLET 1 pill by mouth daily, for blood pressure LOSARTAN POTASSIUM 41837529357 Active Ana Wallace Active AMLODIPINE BESYLATE 5 MG ORAL TABLET 1 tablet by mouth daily 201 01/20/04 AMLODIPINE BESYLATE 04468753526 No Longer Active Devonjustincarlitos fulton ANNIE Active MITIGARE 0.6 MG ORAL CAPSULE 2 capsules at onset of go ut pain, then take one capsule at 1 hour if symptoms persist. COLCHICINE 59 789395141 Active Mitch Urbina DO Active COUMADIN 1 MG ORAL TABLET 2 tabs orally daily with the 5mg tab to equal 7mg daily WARFARIN SODIUM 73111709757 Active Ana Wallace Active COLCRYS 0.6 MG ORAL TABLET 1 tab qid prn gout C OLCHICINE 61227976342 Active Norma Cazares Active INVOKANA 100 MG ORAL TABLET 1 tablet orally daily CANAGLIFLOZIN 29608818803 Active Mitch Urbina DO Active MINOXIDIL 2.5 MG ORAL TABLET 1 tablet daily for high blood press ure MINOXIDIL 93434968593 Active Mitch Urbina DO Active MECLIZINE HCL 25 MG ORAL TABLET 1 po tid 3 days, then 1/2 ta b tid 3 days MECLIZINE HCL 24403397689 No Longer Active Corey SEGURA Active ALLOPURINOL 300 MG ORAL TABLET Take 1 tablet by mouth daily 2012 ALLOPURINOL 67921493254 No Longer Active Corey SEGURA Active CLONIDINE HCL 0.1 MG ORAL TABLET 1 po bid 7 days, then 1/2 t ab po bid 7 days CLONIDINE HCL 35922322037 No Longer Active Corey SEGURA Active COUMADIN 5 MG ORAL TABLET 1 tab PO daily WARFAR IN SODIUM 35060718454 Active Mitch Urbina DO Active COUMADIN 4 MG ORAL TABLET 1 tablet daily WARFAR IN SODIUM 56569261232 No Longer Active Corey SEGURA Active POLYTRIM 13667-1.1 UNIT/ML-% OPHTHALMIC SOLUTION 1 rui p in affected eye every 3 hours while awake x 7 days POLYMYXIN B-TRIMETHOP RIM 43911176734 No Longer Active Corey SEGURA Active LOSARTAN POTASSIUM-HCTZ 100-12.5 MG ORAL TABLET 1 by m outh daily for high blood pressure LOSARTAN POTASSIUM-HCTZ 72638845899 No Longer A ctive Mitch Urbina DO Active LISINOPRIL-HYDROCHLOROTHIAZIDE 20-12.5 MG ORAL TABLET 1 tab by m outh daily LISINOPRIL-HYDROCHLOROTHIAZIDE 73889345901 No Longer Active Mitch Urbina DO Active LISINOPRIL 20 MG ORAL TABLET 1 tab po at HS LIS INOPRIL 15771025983 No Longer Active Mitch Urbina DO Active COUMADIN 5 MG ORAL TABLET 1 by mouth every other day 2 WARFARIN SODIUM 56600423870 No Longer Active Mitch Urbina DO Active COUMADIN 6 MG ORAL TABLET 1 by mouth every other day 2 WARFARIN SODIUM 35246235560 No Longer Active Mitch Urbina DO Active SIMVASTATIN 40 MG ORAL TABLET 1 tab daily at bedtime SIMVASTATIN 77381502631 Active Mitch Urbina DO Active SIMVASTATIN 20 MG ORAL TABLET 1 tab daily at bedtime 2 SIMVASTATIN 70765518567 No Longer Active Mitch Urbina DO Active LOVENOX 100 MG/ML SUBCUTANEOUS SOLUTION One injection twice a da y ENOXAPARIN SODIUM 52801392525 No Longer Active Carmine Yusuf MD Active JANUVIA 50 MG ORAL TABLET Take one by mouth daily SITAGLIPTIN PHOSPHATE 88578841979 Active Mitch Urbina DO Active JANUVIA 100 MG ORAL TABLET 1/2 by mouth every day 2011 SITAGLIPTIN PHOSPHATE 58618642717 No Longer Active Bijal Segal RN Acti ve METFORMIN HCL 500 MG ORAL TABLET 2 by mouth twice daily METFORMIN HCL 80092276507 Active Mitch Urbina DO Active COLCRYS 0.6 MG ORAL TABLET 1 po q 6 hours prn gout pain COLCHICINE 67773739311 No Longer Active Camila Reese Active LISINOPRIL 5 MG ORAL TABLET 1 by mouth every day 11/17 LISINOPRIL 72406962696 No Longer Active Nguyen Coekman Active KLOR-CON 20 MEQ ORAL PACKET Take one by mouth daily 09/10/08 POTASSIUM CHLORIDE 03964214280 No Longer Active Nguyen Perez Active FUROSEMIDE 40 MG ORAL TABLET 1 by mouth daily F UROSEMIDE 23892174603 No Longer Active Nguyen Coekman Active PROVIGIL 200 MG ORAL TABLET 1/2 tab po q day MODA FINIL 57457584481 Active Mitch Urbina DO Active PROVIGIL 100 MG ORAL TABLET Take one by mouth daily 08/20/04 MODAFINIL 97392624419 No Longer Active Mitch Urbina DO Active BACTRIM DS 800-160 MG ORAL TABLET 1 tab by mouth twice daily 201 10/19/09 TRIMETHOPRIM-SULFAMETHOXAZOLE 23844521480 No Longer Active Elian Hays MD Active FAMOTIDINE 20 MG ORAL TABLET by mouth twice a day FAMOTIDINE 60689335406 Active Mitch Urbina DO Active ADULT ASPIRIN LOW STRENGTH 81 MG ORAL TABLET DISINTEGR ATING 1 by mouth every daily ASPIRIN 85923293524 Active Mitch Urbina DO Ac tive METOPROLOL TARTRATE 50 MG ORAL TABLET 1 by mouth twice daily METOPROLOL TARTRATE 20953588926 Active Mitch Urbina DO Active BACTRIM DS 800-160 MG ORAL TABLET 1 tab by mouth twice daily 201 10/19/09 BACTRIM DS 800-160 MG ORAL TABLET 523685 TRIMETHOPRIM-SULFAMETHOXAZOLE Inactive PROVIGIL 100 MG ORAL TABLET Take one by mouth daily 08/20/04 PROVIGIL 100 MG ORAL TABLET 013418 MODAFINIL Inactive FUROSEMIDE 40 MG ORAL TABLET 1 by mouth daily FUROSEMIDE 40 MG ORAL TABLET 375589 FUROSEMIDE Inactive KLOR-CON 20 MEQ ORAL PACKET Take one by mouth daily 09/10/08 KLOR- CON 20 MEQ ORAL PACKET 1666152 POTASSIUM CHLORIDE Inactive LISINOPRIL 5 MG ORAL TABLET 1 by mouth every day 11/17 LISINOPRIL 5 MG ORAL TABLET 221944 LISINOPRIL Inactive COLCRYS 0.6 MG ORAL TABLET 1 po q 6 hours prn gout pain COLCRYS 0.6 MG ORAL TABLET 104934 COLCHICINE Inactive JANUVIA 100 MG ORAL TABLET 1/2 by mouth every day 2011 JANUVIA 100 MG ORAL TABLET SITAGLIPTIN PHOSPHATE Inactive SIMVASTATIN 20 MG ORAL TABLET 1 tab daily at bedtime 2 SIMVASTATIN 20 MG ORAL TABLET 117826 SIMVASTATIN Inactive COUMADIN 6 MG ORAL TABLET 1 by mouth every other day 2 COUMADIN 6 MG ORAL TABLET 822583 WARFARIN SODIUM Inactive COUMADIN 5 MG ORAL TABLET 1 by mouth every other day 2 COUMADIN 5 MG ORAL TABLET 546505 WARFARIN SODIUM Inactive LISINOPRIL 20 MG ORAL TABLET 1 tab po at HS LISINOPRIL 20 MG ORAL TABLET 808597 LISINOPRIL Inactive LISINOPRIL-HYDROCHLOROTHIAZIDE 20-12.5 MG ORAL TABLET 1 tab by m outh daily LISINOPRIL-HYDROCHLOROTHIAZIDE 20-12.5 MG ORAL TABLET 833403 LISINOPRIL-HYDROCHLOROTHIAZIDE Inactive POLYTRIM 89684-0.1 UNIT/ML-% OPHTHALMIC SOLUTION 1 rui p in affected eye every 3 hours while awake x 7 days POLYTRIM 1000 0-0.1 UNIT/ML-% OPHTHALMIC SOLUTION 098807 POLYMYXIN B-TRIMETHOPRIM Inactive COUMADIN 4 MG ORAL TABLET 1 tablet daily COUMADIN 4 MG ORAL TABLET 058079 WARFARIN SODIUM Inactive CLONIDINE HCL 0.1 MG ORAL TABLET 1 po bid 7 days, then 1/2 t ab po bid 7 days CLONIDINE HCL 0.1 MG ORAL TABLET 618577 CLONIDIN E HCL Inactive ALLOPURINOL 300 MG ORAL TABLET Take 1 tablet by mouth daily 2012 ALLOPURINOL 300 MG ORAL TABLET 549263 ALLOPURINOL I nactive MECLIZINE HCL 25 MG ORAL TABLET 1 po tid 3 days, then 1/2 ta b tid 3 days MECLIZINE HCL 25 MG ORAL TABLET 289066 MECLIZINE HCL Inactive AMLODIPINE BESYLATE 5 MG ORAL TABLET 1 tablet by mouth daily 201 01/20/04 AMLODIPINE BESYLATE 5 MG ORAL TABLET 360998 AMLODIPINE BESYLATE Inactive KEFLEX 500 MG ORAL CAPSULE 1 po qid K EFLEX 500 MG ORAL CAPSULE 758507 CEPHALEXIN Inactive LOVENOX 100 MG/ML SUBCUTANEOUS SOLUTION One injection twice a da y LOVENOX 100 MG/ML SUBCUTANEOUS SOLUTION 939043 ENOXAPAR IN SODIUM Inactive Vital Signs Date [...] - Chem istry sodium, serum 139 mmol/L 870-401 5467/07/17 potassium, serum 4.2 mmol/L 3.5-5.2 chloride, serum 102 mmol/L 98-107 carbon dioxide, venous blood 28.9 mmol/L 21.0-32 .0 blood glucose 211 mg/dL 65-110 calcium, serum 10.6 mg/dL 8.5-10.1 urea nitrogen, blood 29 mg/dL 7-18 creatinine, serum 1.24 mg/dL 0.60-1.30 sodium, serum 141 mmol/L 716-835 6417/08/07 potassium, serum 4.5 mmol/L 3.5-5.2 chloride, serum [...] ... - Chemistry sodium, serum 144 mmol/L 752-490 4286/06/12 carbon dioxide, venous blood 26.6 mmol/L 21.0-32 [...] 1.0-3.5 Encounters Code Encounter Date Provider Facility CPT-90306 Level 3 Est. Patient 18:25:53 CDT Mitch luis [facility] CPT-96709 Level 3 Est. Patient 19:43:34 CDT Mitch Castellano janelle [facility] CPT-18056 Level 4 Est. Patient 09:30:18 CDT Mitch Arnol luis [facility] CPT-59638 Level 3 Est. Patient 15:10:14 CDT Joe Gomez courtangela [facility] CPT-60669 Level 3 Est. Patient 15:03:46 CDT Joe Jason yunangela [facility] CPT-62285 Level 3 Est. Patient 14:21:06 CDT Mitch Ambrose Nona luis [facility] CPT-87756 Level 3 Est. Patient 14:52:06 CDT Joe Jason yunangela [facility] CPT-73285 Level 3 Est. Patient 09:34:30 MANAGER BOOK Mitch luis [facility] CPT-81284 Level 3 Est. Patient 09:37:15 CDT Mitch Castellano janelle [facility] CPT-07841 Level 3 Est. Patient 17:01:00 MANAGER BOOK Mitch luis [facility] CPT-76457 Level 3 Est. Patient 13:53:19 MANAGER BOOK Mitch luis [facility] CPT-89281 Level 3 Est. Patient 19:19:37 MANAGER BOOK Mitch luis [facility] CPT-07421 Level 3 Est. Patient 13:25:53 MANAGER BOOK Tavo toure MD [facility] CPT-18415 Level 3 Est. Patient 18:17:28 CDT Mitch luis [facility] CPT-34430 Level 3 Est. Patient 15:22:57 CDT Mitch luis [facility] CPT-73805 Level 3 Est. Patient 18:21:50 CDT Mitch luis [facility] CPT-26927 Level 3 Est. Patient 18:20:38 CDT Mitch luis [facility] CPT-44254 Level 3 Est. Patient 15:37:55 CDT Mitch luis [facility] CPT-06258 Level 2 Est. Patient 15:54:44 CDT Carmine benton MD [facility] CPT-81907 Level 3 Est. Patient 21:46:01 MANAGER BOOK Mitch luis [facility] CPT-87462 Level 3 Est. Patient 22:15:50 CDT Mitch luis [facility] CPT-82490 Level 3 Est. Patient 10:48:15 CDT Mitch luis [facility] CPT-37600 Level 3 Est. Patient 23:20:57 CDT Tavo toure MD [facility] CPT-12896 Level 3 Est. Patient 16:26:13 CDT Mitch luis [facility] Procedures Code Procedure Name Date Entry Date Standard Desc ription CPT-43617 Venipuncture Draw Fee 09:26:17 CDT CPT-29574 PT/INR - LAB USE ONLY 13:32:49 MANAGER BOOK CPT-33481 Venipuncture Draw Fee 13:32:49 MANAGER BOOK CPT-17032 PT/INR - LAB USE ONLY 10:34:49 MANAGER BOOK CPT-99926 Venipuncture Draw Fee 10:34:48 MANAGER BOOK CPT-67741 PT/INR - LAB USE ONLY 09:22:03 MANAGER BOOK CPT-47008 Venipuncture Draw Fee 09:22:02 MANAGER BOOK CPT-42330 Hemoccult IFOBT - LAB USE ONLY 10:27:22 CDT CPT-22448 Venipuncture Draw Fee 08:27:08 CDT CPT-30484 Liver Profile - LAB USE ONLY 08:27:07 CDT 2 CPT-48783 Microalbumin - LAB USE ONLY 08:27:07 CDT 20 25/05/09 CPT-80801 PT/INR - LAB USE ONLY 08:27:07 CDT CPT-27585 HGBA1C - LAB USE ONLY 08:27:07 CDT CPT-86755 CBC - LAB USE ONLY 08:27:07 CDT CPT-31683 Venipuncture Draw Fee 11:09:14 CDT CPT-86101 Venipuncture Draw Fee 08:32:21 MANAGER BOOK CPT-41965 Venipuncture Draw Fee 09:38:56 MANAGER BOOK CPT-17811 No Charge Offi Visit 21:36:07 CDT 1 CPT-82227 Venipuncture Draw Fee 10:13:28 MANAGER BOOK CPT-52384 Venipuncture Draw Fee 08:31:11 CDT CPT-44179 Aspir/Inject Med Joint 18:17:28 CDT CPT-54099 Venipuncture Draw Fee 10:13:30 CDT CPT-39665 Venipuncture Draw Fee 08:31:43 MANAGER BOOK CPT-JTINJ Joint Injection 18:34:50 CDT CPT-40398 Knee 3V 12:25:09 CDT CPT-72529 Venipuncture Draw Fee 12:15:57 CDT CPT-060 Medical Surveillance Exam 21:31:43 CDT 2011 CPT-96033 Venipuncture Draw Fee 08:32:05 MANAGER BOOK CPT-OV Office Visit 18:19:06 CDT
--- OUTSIDE RECORDS SUMMARY | 2020-01-18 12:58 | XMS REPORT | Clinical Summary ---
Author Author Admin, Mitch Leon Organization [facility] [employer] Address Unknown Phone Unavailable Allergies, Adverse Reactions, [...] tab to equal 7mg daily WARFARIN SODIUM 78922658650 Active Norma Cazares Active COLCRYS 0.6 MG TABS 1 tab qid prn gout COLCHICINE 39672799544 Active Kathie Juan RPT,RMA Active INVOKANA 100 MG ORAL TABS 1 tablet orally daily CANAGLIFLOZIN 15950165406 Active Mitch Urbina DO Active MINOXIDIL 2.5 MG TABS 1 tablet daily for high blood pressure 10/23 MINOXIDIL 97086953659 Active Domi Rivera MA Active AMLODIPINE BESYLATE 5 MG TABS 1 tablet by mouth daily AMLODIPINE BESYLATE 13112938101 Active Mitch Urbina DO Active MECLIZINE HCL 25 MG TAB 1 po tid 3 days, then 1/2 tab tid 3 days MECLIZINE HCL 38636455049 No Longer Active Corey SEGURA Active ALLOPURINOL 300 MG TABS Take 1 tablet by mouth daily 2 ALLOPURINOL 98722671121 No Longer Active Corey SEGURA Activ e CLONIDINE HCL 0.1 MG TABS 1 po bid 7 days, then 1/2 tab po b id 7 days CLONIDINE HCL 38799692412 No Longer Active Corey SEGURA Active COUMADIN 5 MG TABS 1 tab PO daily WARFARIN SODIUM 83395328382 Active Mitch Urbina DO Active COUMADIN 4 MG TABS 1 tablet daily WARFARIN SODI UM 42279211685 No Longer Active Corey SEGURA Active POLYTRIM 12496-7.1 UNIT/ML-% SOLN 1 drop in affected e ye every 3 hours while awake x 7 days POLYMYXIN B-TRIMETHOPRIM 82867649501 N o Longer Active Corey SEGURA Active LOSARTAN POTASSIUM-HCTZ 100-12.5 MG TABS 1 by mouth da [place] for high blood pressure LOSARTAN POTASSIUM-HCTZ 06662100597 Active Stephy Urbina DO Active LISINOPRIL-HYDROCHLOROTHIAZIDE 20-12.5 MG TABS 1 tab by mouth da rocky LISINOPRIL-HYDROCHLOROTHIAZIDE 12166733536 No Longer Active Mitch luis DO Active LISINOPRIL 20 MG TABS 1 tab po at HS LISINOPRIL 26889940991 No Longer Active Mitch Urbina DO Active COUMADIN 5 MG TABS 1 by mouth every other day WARFARIN SODIUM 00836136935 No Longer Active Mitch Urbina DO Active COUMADIN 6 MG TABS 1 by mouth every other day WARFARIN SODIUM 90420859523 No Longer Active Mitch W Carl[place] DO Active SIMVASTATIN 40 MG TABS 1 tab daily at bedtime S IMVASTATIN 43362637408 Active Mitch Arnol Urbina DO Active SIMVASTATIN 20 MG TABS 1 tab daily at bedtime S IMVASTATIN 32685335793 No Longer Active Mitch Urbina DO Active LOVENOX 100 MG/ML SC SOLN One injection twice a day 09/15/15 ENOXAPARIN SODIUM 83056919051 No Longer Active Carmine Navarrete ctive JANUVIA 50 MG TABS Take one by mouth daily DIEGO GLIPTIN PHOSPHATE 83725502749 Active Mitch Urbina DO Active JANUVIA 100 MG TABS 1/2 by mouth every day DIEGO GLIPTIN PHOSPHATE 11678912836 No Longer Active Bijal Segal RN Active METFORMIN HCL 500 MG TABS 2 by mouth twice daily METFORMIN HCL 94540735353 Active Mitch Urbina DO Active GLIMEPIRIDE 4 MG TABS 1 tab po bid GLIMEPIRIDE 511479 89654 Active Mitch Ambrose Carlitos DO Active COLCRYS 0.6 MG TABS 1 po q 6 hours prn gout pain 03/02 COLCHICINE 05023021670 No Longer Active Camila Reese Active LISINOPRIL 5 MG TABS 1 by mouth every day LISIN OPRIL 15631431999 No Longer Active Nguyen Perez Active KLOR-CON 20 MEQ PACK Take one by mouth daily 8 POTASSIUM CHLORIDE 25536150810 No Longer Active Nguyenmolly Perez Active FUROSEMIDE 40 MG TABS 1 by mouth daily FUROSEMI DE 78890489212 No Longer Active Nguyen Perez Active PROVIGIL 200 MG TABS 1/2 tab po q day MODAFINIL 83927 383166 Active Kathie Juan RPT,RMA Active PROVIGIL 100 MG TABS Take one by mouth daily MO DAFINIL 98536670619 No Longer Active Mitch Urbina DO Active BACTRIM DS 800-160 MG TAB 1 tab by mouth twice daily 2 TRIMETHOPRIM-SULFAMETHOXAZOLE 08928321157 No Longer Active Renan Hays MD Active FAMOTIDINE 20 MG TABS by mouth twice a day FAMOTI DINE 95927751838 Active Mitch Urbina DO Active ADULT ASPIRIN LOW STRENGTH 81 MG TBDP 1 by mouth every daily ASPIRIN 64941718862 Active Mitch Urbina DO Active METOPROLOL TARTRATE 50 MG TABS 1 by mouth twice daily METOPROLOL TARTRATE 72887080597 Active Mitch Urbina DO Active BACTRIM DS 800-160 MG TAB 1 tab by mouth twice daily 2 BACTRIM DS 800-160 MG TAB 331635 TRIMETHOPRIM-SULFAMETHOXAZOLE Inac tive PROVIGIL 100 MG TABS Take one by mouth daily 4 PROVIGIL 100 MG TABS 765505 MODAFINIL Inactive FUROSEMIDE 40 MG TABS 1 by mouth daily FU ROSEMIDE 40 MG TABS 914799 FUROSEMIDE Inactive KLOR-CON 20 MEQ PACK Take one by mouth daily 8 KLOR-CON 20 MEQ PACK 473698 POTASSIUM CHLORIDE Inactive LISINOPRIL 5 MG TABS 1 by mouth every day LISINOPRIL 5 MG TABS 168822 LISINOPRIL Inactive COLCRYS 0.6 MG TABS 1 po q 6 hours prn gout pain 03/02 COLCRYS 0.6 MG TABS 544049 COLCHICINE Inactive JANUVIA 100 MG TABS 1/2 by mouth every day JANUVI A 100 MG TABS SITAGLIPTIN PHOSPHATE Inactive SIMVASTATIN 20 MG TABS 1 tab daily at bedtime SIMVASTATIN 20 MG TABS 244049 SIMVASTATIN Inactive COUMADIN 6 MG TABS 1 by mouth every other day COUMADIN 6 MG TABS 141144 WARFARIN SODIUM Inactive COUMADIN 5 MG TABS 1 by mouth every other day COUMADIN 5 MG TABS 026600 WARFARIN SODIUM Inactive LISINOPRIL 20 MG TABS 1 tab po at HS KOKI NOPRIL 20 MG TABS 170978 LISINOPRIL Inactive LISINOPRIL-HYDROCHLOROTHIAZIDE 20-12.5 MG TABS 1 tab by mouth da [place] LISINOPRIL-HYDROCHLOROTHIAZIDE 20-12.5 MG TABS 458190 LISINOPRIL-HYDROCHLOROTHIAZIDE Inactive POLYTRIM 90973-5.1 UNIT/ML-% SOLN 1 drop in affected e ye every 3 hours while awake x 7 days POLYTRIM 46480-4.1 UNIT/ML-% SOLN 10560 7 POLYMYXIN B-TRIMETHOPRIM Inactive COUMADIN 4 MG TABS 1 tablet daily COUMADIN 4 MG TABS 249840 WARFARIN SODIUM Inactive CLONIDINE HCL 0.1 MG TABS 1 po bid 7 days, then 1/2 tab po b id 7 days CLONIDINE HCL 0.1 MG TABS 593906 CLONIDINE HCL I nactive ALLOPURINOL 300 MG TABS Take 1 tablet by mouth daily 2 ALLOPURINOL 300 MG TABS 770768 ALLOPURINOL Inactive MECLIZINE HCL 25 MG TAB 1 po tid 3 days, then 1/2 tab tid 3 days MECLIZINE HCL 25 MG TAB 610396 MECLIZINE HCL Inactive LOVENOX 100 MG/ML SC SOLN One injection twice a day 09/15/15 LOVENOX 100 MG/ML SC SOLN 420475 ENOXAPARIN SODIUM Inactive Vital Signs Date Name [...] Range Description Chart Maintenance: hemoccult added to [facility] - Chemistry occult blood, stool (E&M) [...] - Chem istry sodium, serum 136 mmol/L 156-548 0354/01/14 carbon dioxide, venous blood 25.4 mmol/L 21.0-32 [...] CBC - Chemistry cholesterol, serum 136 mg/dL 723-130 3409/08/09 triglyceride, serum, fasting 187 mg/dL 30-200 HDL [...] 1.0-3.5 Encounters Code Encounter Date Provider Facility CPT-21411 Level 3 Est. Patient 14:21:06 CDT Mitch luis [facility] CPT-29770 Level 3 Est. Patient 14:52:06 [facility] Level 3 Est. Patient 09:34:30 [employer] Mitch luis [facility] CPT-61783 Level 3 Est. Patient 09:37:15 CDT Mitch luis [facility] CPT-61063 Level 3 Est. Patient 17:01:00 F[employer]GE BOOKKEEPER Mitch luis [facility] CPT-18423 Level 3 Est. Patient 13:53:19 F[employer]GE BOOKKEEPER Mitch luis [facility] CPT-86529 Level 3 Est. Patient 19:19:37 F[employer]GE BOOKKEEPER Mitch luis [facility] CPT-49391 Level 3 Est. Patient 13:25:53 F[employer]GE BOOKKEEPER Tavo toure MD [facility] CPT-59994 Level 3 Est. Patient 18:17:[address] [facility] CPT-98505 Level 3 Est. Patient 15:22:57 CDT Mitch luis [facility] CPT-40839 Level 3 Est. Patient 18:21:50 CDT Mitch luis [facility] CPT-87705 Level 3 Est. Patient 18:20:38 CDT Mitch luis [facility] CPT-98155 Level 3 Est. Patient 15:37:[address] [facility] CPT-45990 Level 2 Est. Patient 15:54:44 CDT Carmine benton MD [facility] CPT-41574 Level 3 Est. Patient 21:46:01 F[employer]GE BOOKKEEPER Mitch luis [facility] CPT-93462 Level 3 Est. Patient 22:15:[address] [facility] CPT-46941 Level 3 Est. Patient 10:48:[address] [facility] CPT-16801 Level 3 Est. Patient 23:20:57 CDT Tavo toure MD [facility] CPT-23961 Level 3 Est. Patient 16:26:[address] [facility] Procedures Code Procedure Name Date Entry Date Standard Desc ription CPT-40000 PT/INR - LAB USE ONLY 09:22:03 [employer] CPT-50576 Venipuncture Draw Fee 09:22:02 [employer] CPT-41732 Hemoccult IFOBT - LAB USE ONLY 10:27:22 CDT CPT-79118 Venipuncture Draw Fee 08:27:08 CDT CPT-29056 Liver Profile - LAB USE ONLY 08:27:07 CDT 2 CPT-13118 Microalbumin - LAB USE ONLY 08:27:07 CDT 20 25/05/09 CPT-64316 PT/INR - LAB USE ONLY 08:27:07 CDT CPT-99393 HGBA1C - LAB USE ONLY 08:27:07 CDT CPT-59766 CBC - LAB USE ONLY 08:27:07 CDT CPT-80630 Venipuncture Draw Fee 11:09:14 CDT CPT-24290 Venipuncture Draw Fee 08:32:21 [employer] CPT-81676 Venipuncture Draw Fee 09:38:56 [employer]PER CPT-46377 No Charge Offi Visit 21:36:07 CDT 1 CPT-04291 Venipuncture Draw Fee 10:13:28 [employer]PER CPT-71358 Venipuncture Draw Fee 08:31:11 CDT CPT-48647 Aspir/Inject Med Joint 18:17:28 CDT CPT-79261 Venipuncture Draw Fee 10:13:30 CDT CPT-98230 Venipuncture Draw Fee 08:31:43 [employer]PER CPT-JTINJ Joint Injection 18:34:50 CDT CPT-97973 Knee 3V 12:25:09 CDT CPT-23076 Venipuncture Draw Fee 12:15:57 CDT CPT-060 Medical Surveillance Exam 21:31:43 CDT 2011 CPT-87459 Venipuncture Draw Fee 08:32:05 [employer]OOKKEEPER CPT-OV Office Visit 18:19:06 CDT
--- OUTSIDE RECORDS SUMMARY | 2020-01-18 12:58 | XMS REPORT | Clinical Summary ---
Author Author Admin, Mitch Leon Organization [facility] Address Unknown Phone Unavailable Allergies, Adverse [...] of unspecified type of vessel, [place] or graft EDEMA 782.3 Resolved Mitch Urbina [...] 1 tablet by mouth daily AMLODIPINE BESYLATE 16387931503 No Longer Active Joe Williamson APRN Active MITIGARE 0.6 MG ORAL CAPS 2 capsules at onset of gout pain, then take one capsule at 1 hour if symptoms persist. COLCHICINE 59 594331190 Active Mitch Urbina DO Active COUMADIN 1 MG TAB 2 tabs orally daily with the 5mg tab to equal 7mg daily WARFARIN SODIUM 34695533894 Active Mitch Urbina DO Active COLCRYS 0.6 MG TABS 1 tab qid prn gout COLCHICINE 06543939863 Active Norma Cazares Active INVOKANA 100 MG ORAL TABS 1 tablet orally daily CANAGLIFLOZIN 88596865247 Active Brenda Shen Active MINOXIDIL 2.5 MG TABS 1 tablet daily for high blood pressure 10/23 MINOXIDIL 12986620997 Active Ana Wallace Active MECLIZINE HCL 25 MG TAB 1 po tid 3 days, then 1/2 tab tid 3 days MECLIZINE HCL 82077346829 No Longer Active Corey SEGURA Active ALLOPURINOL 300 MG TABS Take 1 tablet by mouth daily 2 ALLOPURINOL 71746344638 No Longer Active Corey SEGURA Activ e CLONIDINE HCL 0.1 MG TABS 1 po bid 7 days, then 1/2 tab po b id 7 days CLONIDINE HCL 27209041537 No Longer Active Corey SEGURA Active COUMADIN 5 MG TABS 1 tab PO daily WARFARIN SODIUM 46285616401 Active Mitch Urbina DO Active COUMADIN 4 MG TABS 1 tablet daily WARFARIN SODI UM 25980794305 No Longer Active Corey SEGURA Active POLYTRIM 27123-5.1 UNIT/ML-% SOLN 1 drop in affected e ye every 3 hours while awake x 7 days POLYMYXIN B-TRIMETHOPRIM 18373094082 N o Longer Active Corey SEGURA Active LOSARTAN POTASSIUM-HCTZ 100-12.5 MG TABS 1 by mouth [place] for high blood pressure LOS[place]AN POTASSIUM-HCTZ 30079567896 Active Stephy Urbina DO Active LISINOPRIL-HYDROCHLOROTHIAZIDE 20-12.5 MG TABS 1 tab by mouth da [place] LISINOPRIL-HYDROCHLOROTHIAZIDE 28753509401 No Longer Active Mitch luis DO Active LISINOPRIL 20 MG TABS 1 tab po at HS LISINOPRIL 63303626987 No Longer Active Mitch Urbina DO Active COUMADIN 5 MG TABS 1 by mouth every other day WARFARIN SODIUM 18119882741 No Longer Active Mitch Urbina DO Active COUMADIN 6 MG TABS 1 by mouth every other day WARFARIN SODIUM 46002394829 No Longer Active Mitch Urbina DO Active SIMVASTATIN 40 MG TABS 1 tab daily at bedtime S IMVASTATIN 98484356644 Active Mitch Urbina DO Active SIMVASTATIN 20 MG TABS 1 tab daily at bedtime S IMVASTATIN 24570690190 No Longer Active Mitch Urbina DO Active LOVENOX 100 MG/ML SC SOLN One injection twice a day 09/15/15 ENOXAPARIN SODIUM 36890225573 No Longer Active Carmine Navarrete ctive JANUVIA 50 MG TABS Take one by mouth daily DIEGO GLIPTIN PHOSPHATE 48504959086 Active Mitch Urbina DO Active JANUVIA 100 MG TABS 1/2 by mouth every day DIEGO GLIPTIN PHOSPHATE 00059290617 No Longer Active Bijal Segal RN Active METFORMIN HCL 500 MG TABS 2 by mouth twice daily METFORMIN HCL 27940676522 Active Mitch Urbina DO Active GLIMEPIRIDE 4 MG TABS 1 tab po bid GLIMEPIRIDE 768004 25436 Active Mitch Urbina DO Active COLCRYS 0.6 MG TABS 1 po q 6 hours prn gout pain 03/02 COLCHICINE 90754437699 No Longer Active Camila Reese Active LISINOPRIL 5 MG TABS 1 by mouth every day LISIN OPRIL 64763577814 No Longer Active Nguyen Perez Active KLOR-CON 20 MEQ PACK Take one by mouth daily 8 POTASSIUM CHLORIDE 94122989357 No Longer Active Nguyen Perez Active FUROSEMIDE 40 MG TABS 1 by mouth daily FUROSEMI DE 25708360845 No Longer Active Nguyen Perez Active PROVIGIL 200 MG TABS 1/2 tab po q day MODAFINIL 57861 761648 Active Kathie Juan RPT,RMA Active PROVIGIL 100 MG TABS Take one by mouth daily MO DAFINIL 66458189812 No Longer Active Mitch Urbina DO Active BACTRIM DS 800-160 MG TAB 1 tab by mouth twice daily 2 TRIMETHOPRIM-SULFAMETHOXAZOLE 81605814421 No Longer Active Renan Hays MD Active FAMOTIDINE 20 MG TABS by mouth twice a day FAMOTI DINE 70939803808 Active Mitch Urbina DO Active ADULT ASPIRIN LOW STRENGTH 81 MG TBDP 1 by mouth every daily ASPIRIN 39693145682 Active Mitch Urbina DO Active METOPROLOL TARTRATE 50 MG TABS 1 by mouth twice daily METOPROLOL TARTRATE 46350915879 Active Mitch Urbina DO Active ALLOPURINOL 300 MG TABS Take 1 tablet by mouth daily 2 ALLOPURINOL 300 MG TABS 322825 ALLOPURINOL Inactive BACTRIM DS 800-160 MG TAB 1 tab by mouth twice daily 2 BACTRIM DS 800-160 MG TAB 629494 TRIMETHOPRIM-SULFAMETHOXAZOLE Inac tive CLONIDINE HCL 0.1 MG TABS 1 po bid 7 days, then 1/2 tab po b id 7 days CLONIDINE HCL 0.1 MG TABS 447870 CLONIDINE HCL I nactive COUMADIN 5 MG TABS 1 by mouth every other day COUMADIN 5 MG TABS 366956 WARFARIN SODIUM Inactive FUROSEMIDE 40 MG TABS 1 by mouth daily FU ROSEMIDE 40 MG TABS 372590 FUROSEMIDE Inactive KLOR-CON 20 MEQ PACK Take one by mouth daily 8 KLOR-CON 20 MEQ PACK 616720 POTASSIUM CHLORIDE Inactive LISINOPRIL 20 MG TABS 1 tab po at HS KOKI NOPRIL 20 MG TABS 704527 LISINOPRIL Inactive POLYTRIM 62211-6.1 UNIT/ML-% SOLN 1 drop in affected e ye every 3 hours while awake x 7 days POLYTRIM 73198-4.1 UNIT/ML-% SOLN 74148 7 POLYMYXIN B-TRIMETHOPRIM Inactive AMLODIPINE BESYLATE 5 MG TABS 1 tablet by mouth daily AMLODIPINE BESYLATE 5 MG TABS 133204 AMLODIPINE BESYLATE Inactive LISINOPRIL 5 MG TABS 1 by mouth every day LISINOPRIL 5 MG TABS 447721 LISINOPRIL Inactive LISINOPRIL-HYDROCHLOROTHIAZIDE 20-12.5 MG TABS 1 tab by mouth da [place] LISINOPRIL-HYDROCHLOROTHIAZIDE 20-12.5 MG TABS 489981 LISINOPRIL-HYDROCHLOROTHIAZIDE Inactive SIMVASTATIN 20 MG TABS 1 tab daily at bedtime SIMVASTATIN 20 MG TABS 491774 SIMVASTATIN Inactive COUMADIN 4 MG TABS 1 tablet daily COUMADIN 4 MG TABS 711095 WARFARIN SODIUM Inactive MECLIZINE HCL 25 MG TAB 1 po tid 3 days, then 1/2 tab tid 3 days MECLIZINE HCL 25 MG TAB 167240 MECLIZINE HCL Inactive COUMADIN 6 MG TABS 1 by mouth every other day COUMADIN 6 MG TABS 960687 WARFARIN SODIUM Inactive LOVENOX 100 MG/ML SC SOLN One injection twice a day 09/15/15 LOVENOX 100 MG/ML SC SOLN 353340 ENOXAPARIN SODIUM Inactive PROVIGIL 100 MG TABS Take one by mouth daily 4 PROVIGIL 100 MG TABS 414332 MODAFINIL Inactive JANUVIA 100 MG TABS 1/2 by mouth every day JANUVI A 100 MG TABS SITAGLIPTIN PHOSPHATE Inactive COLCRYS 0.6 MG TABS 1 po q 6 hours prn gout pain 03/02 COLCRYS 0.6 MG TABS 564983 COLCHICINE Inactive Vital Signs Date Name Value [...] PANEL, MICROALB/CREAT W/RATIO, HGBA1C, CBC - Chemistry alanine aminotransferase (SGPT), serum 29 U/L 12-78 bilirubin, serum, total 0.60 mg/dL 0.00-1.00 albumin/creatinine ratio, urine < 30 mg/g mg/g{creat} 0-2 9 hemoglobin A1C, blood, as % of total hemoglobin 6.3 % 4.3-6.0 aspartate aminotransferase (SGOT), serum 24 U/L 15-37 [...] Time - Coagulati on prothrombin time (patient) 15.8 SECS s 11.1-13.4 [...] ratio (INR) 2.7 1.0-3.5 prothrombin time (patient) 17.8 SECS s 11.1-13.4 international normalized ratio (INR) 2.0 1.0-3.5 Encounters Code Encounter Date Provider Facility CPT-49654 Level 3 Est. Patient 15:10:14 CDT Joe kamara [facility] CPT-49589 Level 3 Est. Patient 15:03:46 CDT Joe kamara [facility] CPT-81421 Level 3 Est. Patient 14:21:06 CDT Mitch luis [facility] CPT-36281 Level 3 Est. Patient 14:52:06 CDT Joe kamara [facility] CPT-71479 Level 3 Est. Patient 09:34:30 [employer] Mitch luis [facility] CPT-24038 Level 3 Est. Patient 09:37:15 CDT Mitch luis [facility] CPT-88710 Level 3 Est. Patient 17:01:00 [employer] Mitch luis [facility] CPT-31516 Level 3 Est. Patient 13:53:19 [employer] Mitch luis [facility] CPT-81380 Level 3 Est. Patient 19:19:37 [employer] Mitch luis [facility] CPT-90578 Level 3 Est. Patient 13:25:53 [employer] Tavo toure MD [facility] CPT-73539 Level 3 Est. Patient 18:17:28 CDT Mitch Arnol L janelle [facility] CPT-24754 Level 3 Est. Patient 15:22:57 CDT Mitch W L janelle [facility] CPT-85206 Level 3 Est. Patient 18:21:50 CDT Mitch W L janelle [facility] CPT-07802 Level 3 Est. Patient 18:20:38 CDT Mitch W L janelle [facility] CPT-71755 Level 3 Est. Patient 15:37:55 CDT Mitch Arnol Nona janelle [facility] CPT-89761 Level 2 Est. Patient 15:54:44 CDT Carmine benton MD [facility] CPT-51635 Level 3 Est. Patient 21:46:01 [employer] Mitch luis [facility] CPT-40927 Level 3 Est. Patient 22:15:50 CDT Mitch Arnol luis [facility] CPT-74008 Level 3 Est. Patient 10:48:15 CDT Mitch luis [facility] CPT-87873 Level 3 Est. Patient 23:20:57 CDT Tavo toure MD [facility] CPT-86685 Level 3 Est. Patient 16:26:13 CDT Mitch luis [facility] Procedures Code Procedure Name Date Entry Date Standard Desc ription CPT-52178 PT/INR - LAB USE ONLY 13:32:49 [employer] CPT-52167 Venipuncture Draw Fee 13:32:49 [employer] CPT-66670 PT/INR - LAB USE ONLY 10:34:49 [employer] CPT-87892 Venipuncture Draw Fee 10:34:48 [employer] CPT-78751 PT/INR - LAB USE ONLY 09:22:03 [employer] CPT-44042 Venipuncture Draw Fee 09:22:02 [employer] CPT-16382 Hemoccult IFOBT - LAB USE ONLY 10:27:22 CDT CPT-54512 Venipuncture Draw Fee 08:27:08 CDT CPT-05944 Liver Profile - LAB USE ONLY 08:27:07 CDT 2 CPT-32193 Microalbumin - LAB USE ONLY 08:27:07 CDT 20 25/05/09 CPT-55583 PT/INR - LAB USE ONLY 08:27:07 CDT CPT-04036 HGBA1C - LAB USE ONLY 08:27:07 CDT CPT-48353 CBC - LAB USE ONLY 08:27:07 CDT CPT-79481 Venipuncture Draw Fee 11:09:14 CDT CPT-62136 Venipuncture Draw Fee 08:32:21 [employer] CPT-83810 Venipuncture Draw Fee 09:38:56 [employer] CPT-44172 No Charge Offi Visit 21:36:07 CDT 1 CPT-64101 Venipuncture Draw Fee 10:13:28 [employer] CPT-45289 Venipuncture Draw Fee 08:31:11 CDT CPT-32751 Aspir/Inject Med Joint 18:17:28 CDT CPT-52414 Venipuncture Draw Fee 10:13:30 CDT CPT-21649 Venipuncture Draw Fee 08:31:43 [employer] CPT-JTINJ Joint Injection 18:34:50 CDT CPT-30877 Knee 3V 12:25:09 CDT CPT-07593 Venipuncture Draw Fee 12:15:57 CDT CPT-060 Medical Surveillance Exam 21:31:43 CDT 2011 CPT-50469 Venipuncture Draw Fee 08:32:05 [employer] CPT-OV Office Visit 18:19:06 CDT
--- OUTSIDE RECORDS SUMMARY | 2020-01-18 12:58 | XMS REPORT | Clinical Summary ---
Author Author Admin, Mitch Leon Organization [facility] [place] Address Unknown Phone Unavailable Allergies, Adverse Reactions, [...] Coronary atherosclerosis of unspecified type of vessel, [place] or graft EDEMA 782.3 Resolved Mitch Urbina [...] OLECRANON BURSITIS, RIGHT 726.33 Resolved Br uce rAnol Urbina DO Olecranon bursitis UNSPECIFIED ANEMIA 285.9 [...] by mouth twice a day 2017 FAMOTIDINE 59676946864 No Longer Active Mitch Urbina DO Active COLCRYS 0.6 MG ORAL TABLET 1 tab qid prn gout C OLCHICINE 28536412620 No Longer Active Mitch Urbina DO Active GLIMEPIRIDE 2 MG ORAL TABLET 1 po BID GLIMEPIRID E 39331000098 Active Renee Oconnor SENIOR MECHANICAL ESTIMATOR Active KEFLEX 500 MG ORAL CAPSULE 1 po qid CEPHALEXI N 31959481891 No Longer Active Mitch Urbina DO Active LOSARTAN POTASSIUM 100 MG ORAL TABLET 1 pill by mouth daily, for blood pressure LOSARTAN POTASSIUM 38356907419 Active Mitch Urbina DO Active AMLODIPINE BESYLATE 5 MG ORAL TABLET 1 tablet by mouth daily 201 01/20/04 AMLODIPINE BESYLATE 10021874811 No Longer Active Joe fulton APRN Active MITIGARE 0.6 MG ORAL CAPSULE 2 capsules at onset of go ut pain, then take one capsule at 1 hour if symptoms persist. COLCHICINE 59 619469963 Active Mitch Urbina DO Active COUMADIN 1 MG ORAL TABLET 2 tabs orally daily with the 5mg tab to equal 7mg daily WARFARIN SODIUM 85365707263 Active Ana Wallace Active INVOKANA 100 MG ORAL TABLET 1 tablet orally daily CANAGLIFLOZIN 10892802806 Active Mitch Urbina DO Active MINOXIDIL 2.5 MG ORAL TABLET 1 tablet daily for high blood press ure MINOXIDIL 33805442293 Active Mitch Urbina DO Active MECLIZINE HCL 25 MG ORAL TABLET 1 po tid 3 days, then 1/2 ta b tid 3 days MECLIZINE HCL 50276588875 No Longer Active Corey SEGURA Active ALLOPURINOL 300 MG ORAL TABLET Take 1 tablet by mouth daily 2012 ALLOPURINOL 79909178003 No Longer Active Corey SEGURA Active CLONIDINE HCL 0.1 MG ORAL TABLET 1 po bid 7 days, then 1/2 t ab po bid 7 days CLONIDINE HCL 17687311192 No Longer Active Corey SEGURA Active COUMADIN 5 MG ORAL TABLET 1 tab PO daily WARFAR IN SODIUM 81653019090 Active Micth Urbina DO Active COUMADIN 4 MG ORAL TABLET 1 tablet daily WARFAR IN SODIUM 99994904763 No Longer Active Corey SEGURA Active POLYTRIM 78673-7.1 UNIT/ML-% OPHTHALMIC SOLUTION 1 rui p in affected eye every 3 hours while awake x 7 days POLYMYXIN B-TRIMETHOP RIM 86543927157 No Longer Active Corey SEGURA Active LOSARTAN POTASSIUM-HCTZ 100-12.5 MG ORAL TABLET 1 by m outh daily for high blood pressure LOSARTAN POTASSIUM-HCTZ 18180928337 No Longer A ctive Mitch Urbina DO Active LISINOPRIL-HYDROCHLOROTHIAZIDE 20-12.5 MG ORAL TABLET 1 tab by m outh daily LISINOPRIL-HYDROCHLOROTHIAZIDE 18822673667 No Longer Active Mitch Urbina DO Active LISINOPRIL 20 MG ORAL TABLET 1 tab po at HS LIS INOPRIL 67246976118 No Longer Active Mitch Urbina DO Active COUMADIN 5 MG ORAL TABLET 1 by mouth every other day 2 WARFARIN SODIUM 64339149337 No Longer Active Mitch Urbina DO Active COUMADIN 6 MG ORAL TABLET 1 by mouth every other day 2 WARFARIN SODIUM 52929923205 No Longer Active Mitch Urbina DO Active SIMVASTATIN 40 MG ORAL TABLET 1 tab daily at bedtime SIMVASTATIN 99467705621 Active Mitch Urbina DO Active SIMVASTATIN 20 MG ORAL TABLET 1 tab daily at bedtime 2 SIMVASTATIN 30413110444 No Longer Active iMtch Urbina DO Active LOVENOX 100 MG/ML SUBCUTANEOUS SOLUTION One injection twice a da y ENOXAPARIN SODIUM 80455540419 No Longer Active Carmine Yusuf MD Active JANUVIA 50 MG ORAL TABLET Take one by mouth daily SITAGLIPTIN PHOSPHATE 03576107785 Active Mitch W Carlitos DO Active JANUVIA 100 MG ORAL TABLET 1/2 by mouth every day 2011 SITAGLIPTIN PHOSPHATE 41649837839 No Longer Active Bijal Segal RN Acti ve METFORMIN HCL 500 MG ORAL TABLET 2 by mouth twice daily METFORMIN HCL 15282016715 Active Mitch Arnol Urbina DO Active COLCRYS 0.6 MG ORAL TABLET 1 po q 6 hours prn gout pain COLCHICINE 25173035726 No Longer Active Camila Reese Active LISINOPRIL 5 MG ORAL TABLET 1 by mouth every day 11/17 LISINOPRIL 06386858060 No Longer Active Nguyen Perez Active KLOR-CON 20 MEQ ORAL PACKET Take one by mouth daily 09/10/08 POTASSIUM CHLORIDE 60469923729 No Longer Active Nguyen Perez Active FUROSEMIDE 40 MG ORAL TABLET 1 by mouth daily F UROSEMIDE 38338462253 No Longer Active Nguyen Perez Active PROVIGIL 200 MG ORAL TABLET 1/2 tab po q day MODA FINIL 20633747836 Active Renee Elvin BURNETTN Active PROVIGIL 100 MG ORAL TABLET Take one by mouth daily 08/20/04 MODAFINIL 61234558894 No Longer Active Mitch Urbina DO Active BACTRIM DS 800-160 MG ORAL TABLET 1 tab by mouth twice daily 201 10/19/09 TRIMETHOPRIM-SULFAMETHOXAZOLE 32874673620 No Longer Active C alberto Hays MD Active ADULT ASPIRIN LOW STRENGTH 81 MG ORAL TABLET DISINTEGR ATING 1 by mouth every daily ASPIRIN 43797694898 Active Mitch Urbina DO Ac tive METOPROLOL TARTRATE 50 MG ORAL TABLET 1 by mouth twice daily METOPROLOL TARTRATE 57821210518 Active Mitch Urbina DO Active BACTRIM DS 800-160 MG ORAL TABLET 1 tab by mouth twice daily 201 10/19/09 BACTRIM DS 800-160 MG ORAL TABLET 145980 TRIMETHOPRIM-SULFAMETHOXAZOLE Inactive PROVIGIL 100 MG ORAL TABLET Take one by mouth daily 08/20/04 PROVIGIL 100 MG ORAL TABLET 071281 MODAFINIL Inactive FUROSEMIDE 40 MG ORAL TABLET 1 by mouth daily FUROSEMIDE 40 MG ORAL TABLET 761249 FUROSEMIDE Inactive KLOR-CON 20 MEQ ORAL PACKET Take one by mouth daily 09/10/08 KLOR- CON 20 MEQ ORAL PACKET 0913224 POTASSIUM CHLORIDE Inactive LISINOPRIL 5 MG ORAL TABLET 1 by mouth every day 11/17 LISINOPRIL 5 MG ORAL TABLET 496732 LISINOPRIL Inactive COLCRYS 0.6 MG ORAL TABLET 1 po q 6 hours prn gout pain COLCRYS 0.6 MG ORAL TABLET 353408 COLCHICINE Inactive JANUVIA 100 MG ORAL TABLET 1/2 by mouth every day 2011 JANUVIA 100 MG ORAL TABLET SITAGLIPTIN PHOSPHATE Inactive SIMVASTATIN 20 MG ORAL TABLET 1 tab daily at bedtime 2 SIMVASTATIN 20 MG ORAL TABLET 544713 SIMVASTATIN Inactive COUMADIN 6 MG ORAL TABLET 1 by mouth every other day COUMADIN 6 MG ORAL TABLET 206304 WARFARIN SODIUM Inactive COUMADIN 5 MG ORAL TABLET 1 by mouth every other day COUMADIN 5 MG ORAL TABLET 823754 WARFARIN SODIUM Inactive LISINOPRIL 20 MG ORAL TABLET 1 tab po at HS LISINOPRIL 20 MG ORAL TABLET 229245 LISINOPRIL Inactive LISINOPRIL-HYDROCHLOROTHIAZIDE 20-12.5 MG ORAL TABLET 1 tab by m outh daily LISINOPRIL-HYDROCHLOROTHIAZIDE 20-12.5 MG ORAL TABLET 844651 LISINOPRIL-HYDROCHLOROTHIAZIDE Inactive POLYTRIM 52780-6.1 UNIT/ML-% OPHTHALMIC SOLUTION 1 rui p in affected eye every 3 hours while awake x 7 days POLYTRIM 1000 0-0.1 UNIT/ML-% OPHTHALMIC SOLUTION 051051 POLYMYXIN B-TRIMETHOPRIM Inactive COUMADIN 4 MG ORAL TABLET 1 tablet daily COUMADIN 4 MG ORAL TABLET 046577 WARFARIN SODIUM Inactive CLONIDINE HCL 0.1 MG ORAL TABLET 1 po bid 7 days, then 1/2 t ab po bid 7 days CLONIDINE HCL 0.1 MG ORAL TABLET 875270 CLONIDIN E HCL Inactive ALLOPURINOL 300 MG ORAL TABLET Take 1 tablet by mouth daily 2012 ALLOPURINOL 300 MG ORAL TABLET 405572 ALLOPURINOL I nactive MECLIZINE HCL 25 MG ORAL TABLET 1 po tid 3 days, then 1/2 ta b tid 3 days MECLIZINE HCL 25 MG ORAL TABLET 076286 MECLIZINE HCL Inactive AMLODIPINE BESYLATE 5 MG ORAL TABLET 1 tablet by mouth daily 201 01/20/04 AMLODIPINE BESYLATE 5 MG ORAL TABLET 641885 AMLODIPINE BESYLATE Inactive KEFLEX 500 MG ORAL CAPSULE 1 po qid K EFLEX 500 MG ORAL CAPSULE 144441 CEPHALEXIN Inactive COLCRYS 0.6 MG ORAL TABLET 1 tab qid prn gout COLCRYS 0.6 MG ORAL TABLET 490739 COLCHICINE Inactive FAMOTIDINE 20 MG ORAL TABLET by mouth twice a day 2017 FAMOTIDINE 20 MG ORAL TABLET 330840 FAMOTIDINE Inactive LOVENOX 100 MG/ML SUBCUTANEOUS SOLUTION One injection twice a da y LOVENOX 100 MG/ML SUBCUTANEOUS SOLUTION 743452 ENOXAPAR IN SODIUM Inactive Vital Signs Date [...] - Chem istry sodium, serum 139 mmol/L 362-326 6331/07/17 potassium, serum 4.2 mmol/L 3.5-5.2 chloride, serum 102 mmol/L 98-107 carbon dioxide, venous blood 28.9 mmol/L 21.0-32 .0 blood glucose 211 mg/dL 65-110 calcium, serum 10.6 mg/dL 8.5-10.1 urea nitrogen, blood 29 mg/dL 7-18 creatinine, serum 1.24 mg/dL 0.60-1.30 sodium, serum 141 mmol/L 337-865 5972/08/07 potassium, serum 4.5 mmol/L 3.5-5.2 chloride, serum 102 mmol/L 98-107 carbon dioxide, venous blood 31.7 mmol/L 21.0-32 .0 blood glucose 117 mg/dL 65-110 calcium, serum 10.5 mg/dL 8.5-10.1 urea nitrogen, blood 26 mg/dL 7-18 creatinine, serum 1.15 mg/dL 0.60-1.30 Lab Report: Lipid Panel, HEPATIC PANEL, HGBA1C - Chemistry cholesterol, serum 136 mg/dL 958-354 7896/12/06 triglyceride, serum, fasting 247 mg/dL 30-200 HDL cholesterol, serum 41 mg/dL 32-60 LDL cholesterol, serum 46 mg/dL 0-130 aspartate aminotransferase (SGOT), serum 22 U/L 15-37 alanine aminotransferase (SGPT), serum 30 U/L 12-78 bilirubin, serum, total 0.80 mg/dL 0.00-1.00 hemoglobin A1C, blood, as % of total hemoglobin 6.4 % 4.3-6.0 Encounters Code Encounter Date Provider Facility CPT-84677 Level 3 Est. Patient 18:25:[address] [facility] CPT-87960 Level 3 Est. Patient 19:43:[address] [facility] CPT-50942 Level 4 Est. Patient 09:30:[address] [facility] CPT-49979 Level 3 Est. Patient 15:10:14 CDT Joe kamara [facility] CPT-69393 Level 3 Est. Patient 15:03:46 CDT Joe kamara [facility] CPT-61040 Level 3 Est. Patient 14:21:06 CDT Mitch Arnol Nona janelle [facility] CPT-16398 Level 3 Est. Patient 14:52:06 CDT Joe kamara [facility] CPT-93436 Level 3 Est. Patient 09:34:30 [employer] Mitch luis [facility] CPT-85771 Level 3 Est. Patient 09:37:[address] [facility] CPT-07068 Level 3 Est. Patient 17:01:00 [employer] Mitch luis [facility] CPT-75539 Level 3 Est. Patient 13:53:19 [employer] Mitch luis [facility] CPT-89583 Level 3 Est. Patient 19:19:37 [employer] Mitch luis [facility] CPT-75719 Level 3 Est. Patient 13:25:53 [employer] Tavo toure MD [facility] CPT-53797 Level 3 Est. Patient 18:17:28 CDT Mitch luis [facility] CPT-74639 Level 3 Est. Patient 15:22:[address] [facility] CPT-30270 Level 3 Est. Patient 18:21:[address] [facility] CPT-77360 Level 3 Est. Patient 18:20:38 CDT Mitch Arnol luis [facility] CPT-51740 Level 3 Est. Patient 15:37:55 CDT Mitch Arnol luis [facility] CPT-97020 Level 2 Est. Patient 15:54:44 CDT Carmine benton MD [facility] CPT-25758 Level 3 Est. Patient 21:46:01 [employer] Mitch luis [facility] CPT-60574 Level 3 Est. Patient 22:15:50 CDT Mitch luis [facility] CPT-95343 Level 3 Est. Patient 10:48:15 CDT Mitch luis [facility] CPT-85315 Level 3 Est. Patient 23:20:57 CDT Tavo toure MD [facility] CPT-24462 Level 3 Est. Patient 16:26:13 CDT Mitch Castellano janelle [facility] Procedures Code Procedure Name Date Entry Date Standard Desc ription CPT-JTINJ Asp/Joint Injection 18:47:02 CDT CPT-57353 Venipuncture Draw Fee 09:26:17 CDT CPT-38236 PT/INR - LAB USE ONLY 13:32:49 [employer] CPT-73165 Venipuncture Draw Fee 13:32:49 [employer] CPT-89891 PT/INR - LAB USE ONLY 10:34:49 [employer] CPT-38918 Venipuncture Draw Fee 10:34:48 [employer] CPT-98197 PT/INR - LAB USE ONLY 09:22:03 [employer] CPT-59005 Venipuncture Draw Fee 09:22:02 [employer] CPT-72627 Hemoccult IFOBT - LAB USE ONLY 10:27:22 CDT CPT-12046 Venipuncture Draw Fee 08:27:08 CDT CPT-44963 Liver Profile - LAB USE ONLY 08:27:07 CDT 2 CPT-19119 Microalbumin - LAB USE ONLY 08:27:07 CDT 20 25/05/09 CPT-92049 PT/INR - LAB USE ONLY 08:27:07 CDT CPT-54902 HGBA1C - LAB USE ONLY 08:27:07 CDT CPT-52774 CBC - LAB USE ONLY 08:27:07 CDT CPT-02512 Venipuncture Draw Fee 11:09:14 CDT CPT-55186 Venipuncture Draw Fee 08:32:21 [employer] CPT-67606 Venipuncture Draw Fee 09:38:56 [employer] CPT-01006 No Charge Offi Visit 21:36:07 CDT 1 CPT-87884 Venipuncture Draw Fee 10:13:28 [employer] CPT-29782 Venipuncture Draw Fee 08:31:11 CDT CPT-65067 Aspir/Inject Med Joint 18:17:28 CDT CPT-53655 Venipuncture Draw Fee 10:13:30 CDT CPT-55070 Venipuncture Draw Fee 08:31:43 [employer] CPT-JTINJ Joint Injection 18:34:50 CDT CPT-28033 Knee 3V 12:25:09 CDT CPT-54519 Venipuncture Draw Fee 12:15:57 CDT CPT-060 Medical Surveillance Exam 21:31:43 CDT 2011 CPT-56444 Venipuncture Draw Fee 08:32:05 [employer] CPT-OV Office Visit 18:19:06 CDT
--- OUTSIDE RECORDS SUMMARY | 2020-01-18 12:59 | XMS REPORT | Clinical Summary ---
Author Author Admin, Mitch Leon Organization [facility] [place] Address Unknown Phone Unavailable Allergies, Adverse Reactions, [...] unspecified type of vessel, [place] or graft EDEMA 782.3 Resolved Mitch Urbina [...] DO OLECRANON BURSITIS, RIGHT ICD-726.33 Inactive Mitch Ubrina DO UNSPECIFIED ANEMIA ICD-285.9 Inactive Mitch Ambrose [...] by mouth twice a day 2017 FAMOTIDINE 46361532831 No Longer Active Mitch Urbina DO Active COLCRYS 0.6 MG ORAL TABLET 1 tab qid prn gout C OLCHICINE 68791522522 No Longer Active Mitch Urbina DO Active GLIMEPIRIDE 2 MG ORAL TABLET 1 po BID GLIMEPIRID E 25527766246 Active Renee Oconnor LPN Active KEFLEX 500 MG ORAL CAPSULE 1 po qid CEPHALEXI N 35089575413 No Longer Active Mitch Urbina DO Active LOSARTAN POTASSIUM 100 MG ORAL TABLET 1 pill by mouth daily, for blood pressure LOSARTAN POTASSIUM 26488709952 Active Mitch Urbina DO Active AMLODIPINE BESYLATE 5 MG ORAL TABLET 1 tablet by mouth daily 201 01/20/04 AMLODIPINE BESYLATE 77860541675 No Longer Active Joe fulton APRN Active MITIGARE 0.6 MG ORAL CAPSULE 2 capsules at onset of go ut pain, then take one capsule at 1 hour if symptoms persist. COLCHICINE 59 583558592 Active Mitch Urbina DO Active COUMADIN 1 MG ORAL TABLET 2 tabs orally daily with the 5mg tab to equal 7mg daily WARFARIN SODIUM 69659187416 Active Ana Ocampo Active INVOKANA 100 MG ORAL TABLET 1 tablet orally daily CANAGLIFLOZIN 68789586261 Active Mitch Urbina DO Active MINOXIDIL 2.5 MG ORAL TABLET 1 tablet daily for high blood press ure MINOXIDIL 18649927937 Active Renee Oconnor LPN Active MECLIZINE HCL 25 MG ORAL TABLET 1 po tid 3 days, then 1/2 ta b tid 3 days MECLIZINE HCL 03818968258 No Longer Active Corey SEGURA Active ALLOPURINOL 300 MG ORAL TABLET Take 1 tablet by mouth daily 2012 ALLOPURINOL 62056031791 No Longer Active Corey SEGURA Active CLONIDINE HCL 0.1 MG ORAL TABLET 1 po bid 7 days, then 1/2 t ab po bid 7 days CLONIDINE HCL 75685993011 No Longer Active Corey SEGURA Active COUMADIN 5 MG ORAL TABLET 1 tab PO daily WARFAR IN SODIUM 48356483907 Active Mitch Urbina DO Active COUMADIN 4 MG ORAL TABLET 1 tablet daily WARFAR IN SODIUM 06984816543 No Longer Active Corey SEGURA Active POLYTRIM 76676-3.1 UNIT/ML-% OPHTHALMIC SOLUTION 1 rui p in affected eye every 3 hours while awake x 7 days POLYMYXIN B-TRIMETHOP RIM 76150336523 No Longer Active Corey SEGURA Active LOSARTAN POTASSIUM-HCTZ 100-12.5 MG ORAL TABLET 1 by m outh daily for high blood pressure LOSARTAN POTASSIUM-HCTZ 69607740004 No Longer A ctive Mitch Urbina DO Active LISINOPRIL-HYDROCHLOROTHIAZIDE 20-12.5 MG ORAL TABLET 1 tab by m outh daily LISINOPRIL-HYDROCHLOROTHIAZIDE 16605451543 No Longer Active Mitch Urbina DO Active LISINOPRIL 20 MG ORAL TABLET 1 tab po at HS LIS INOPRIL 72370712819 No Longer Active Mitch Urbina DO Active COUMADIN 5 MG ORAL TABLET 1 by mouth every other day 2 WARFARIN SODIUM 92004093646 No Longer Active Mitch Urbina DO Active COUMADIN 6 MG ORAL TABLET 1 by mouth every other day 2 WARFARIN SODIUM 10216993481 No Longer Active Mitch Urbina DO Active SIMVASTATIN 40 MG ORAL TABLET 1 tab daily at bedtime SIMVASTATIN 30242510331 Active Renee Oconnor LPN Active SIMVASTATIN 20 MG ORAL TABLET 1 tab daily at bedtime 2 SIMVASTATIN 95712013963 No Longer Active Mitch Urbina DO Active LOVENOX 100 MG/ML SUBCUTANEOUS SOLUTION One injection twice a da y ENOXAPARIN SODIUM 81171642446 No Longer Active Carmine Yusuf MD Active JANUVIA 50 MG ORAL TABLET Take one by mouth daily SITAGLIPTIN PHOSPHATE 68875798183 Active Mitch Urbina DO Active JANUVIA 100 MG ORAL TABLET 1/2 by mouth every day 2011 SITAGLIPTIN PHOSPHATE 53322159374 No Longer Active Bijal Segal RN Acti ve METFORMIN HCL 500 MG ORAL TABLET 2 by mouth twice daily METFORMIN HCL 93031398391 Active Mitch Urbina DO Active COLCRYS 0.6 MG ORAL TABLET 1 po q 6 hours prn gout pain COLCHICINE 71648124580 No Longer Active Camila Reese Active LISINOPRIL 5 MG ORAL TABLET 1 by mouth every day 11/17 LISINOPRIL 48134852588 No Longer Active Nguyen Perez Active KLOR-CON 20 MEQ ORAL PACKET Take one by mouth daily 09/10/08 POTASSIUM CHLORIDE 95774126551 No Longer Active Nguyen Perez Active FUROSEMIDE 40 MG ORAL TABLET 1 by mouth daily F UROSEMIDE 81495535605 No Longer Active Nguyen Perez Active PROVIGIL 200 MG ORAL TABLET 1/2 tab po q day MODA FINIL 72813366451 Active Renee Oconnor LPN Active PROVIGIL 100 MG ORAL TABLET Take one by mouth daily 08/20/04 MODAFINIL 58595306533 No Longer Active Mitch Urbina DO Active BACTRIM DS 800-160 MG ORAL TABLET 1 tab by mouth twice daily 201 10/19/09 TRIMETHOPRIM-SULFAMETHOXAZOLE 57933199555 No Longer Active Elian Hays MD Active ADULT ASPIRIN LOW STRENGTH 81 MG ORAL TABLET DISINTEGR ATING 1 by mouth every daily ASPIRIN 54064893496 Active Mitch Urbina DO Ac tive METOPROLOL TARTRATE 50 MG ORAL TABLET 1 by mouth twice daily METOPROLOL TARTRATE 54378344057 Active Mitch Urbina DO Active BACTRIM DS 800-160 MG ORAL TABLET 1 tab by mouth twice daily 201 10/19/09 BACTRIM DS 800-160 MG ORAL TABLET 917861 TRIMETHOPRIM-SULFAMETHOXAZOLE Inactive PROVIGIL 100 MG ORAL TABLET Take one by mouth daily 08/20/04 PROVIGIL 100 MG ORAL TABLET 533275 MODAFINIL Inactive FUROSEMIDE 40 MG ORAL TABLET 1 by mouth daily FUROSEMIDE 40 MG ORAL TABLET 577133 FUROSEMIDE Inactive KLOR-CON 20 MEQ ORAL PACKET Take one by mouth daily 09/10/08 KLOR- CON 20 MEQ ORAL PACKET 4068944 POTASSIUM CHLORIDE Inactive LISINOPRIL 5 MG ORAL TABLET 1 by mouth every day 11/17 LISINOPRIL 5 MG ORAL TABLET 744393 LISINOPRIL Inactive COLCRYS 0.6 MG ORAL TABLET 1 po q 6 hours prn gout pain COLCRYS 0.6 MG ORAL TABLET 384294 COLCHICINE Inactive JANUVIA 100 MG ORAL TABLET 1/2 by mouth every day 2011 JANUVIA 100 MG ORAL TABLET SITAGLIPTIN PHOSPHATE Inactive SIMVASTATIN 20 MG ORAL TABLET 1 tab daily at bedtime 2 SIMVASTATIN 20 MG ORAL TABLET 778615 SIMVASTATIN Inactive COUMADIN 6 MG ORAL TABLET 1 by mouth every other day COUMADIN 6 MG ORAL TABLET 491490 WARFARIN SODIUM Inactive COUMADIN 5 MG ORAL TABLET 1 by mouth every other day COUMADIN 5 MG ORAL TABLET 916099 WARFARIN SODIUM Inactive LISINOPRIL 20 MG ORAL TABLET 1 tab po at HS LISINOPRIL 20 MG ORAL TABLET 113629 LISINOPRIL Inactive LISINOPRIL-HYDROCHLOROTHIAZIDE 20-12.5 MG ORAL TABLET 1 tab by m outh daily LISINOPRIL-HYDROCHLOROTHIAZIDE 20-12.5 MG ORAL TABLET 011221 LISINOPRIL-HYDROCHLOROTHIAZIDE Inactive POLYTRIM 01380-1.1 UNIT/ML-% OPHTHALMIC SOLUTION 1 rui p in affected eye every 3 hours while awake x 7 days POLYTRIM 1000 0-0.1 UNIT/ML-% OPHTHALMIC SOLUTION 010000 POLYMYXIN B-TRIMETHOPRIM Inactive COUMADIN 4 MG ORAL TABLET 1 tablet daily COUMADIN 4 MG ORAL TABLET 291592 WARFARIN SODIUM Inactive CLONIDINE HCL 0.1 MG ORAL TABLET 1 po bid 7 days, then 1/2 t ab po bid 7 days CLONIDINE HCL 0.1 MG ORAL TABLET 789804 CLONIDIN E HCL Inactive ALLOPURINOL 300 MG ORAL TABLET Take 1 tablet by mouth daily 2012 ALLOPURINOL 300 MG ORAL TABLET 693495 ALLOPURINOL I nactive MECLIZINE HCL 25 MG ORAL TABLET 1 po tid 3 days, then 1/2 ta b tid 3 days MECLIZINE HCL 25 MG ORAL TABLET 711132 MECLIZINE HCL Inactive AMLODIPINE BESYLATE 5 MG ORAL TABLET 1 tablet by mouth daily 201 01/20/04 AMLODIPINE BESYLATE 5 MG ORAL TABLET 957718 AMLODIPINE BESYLATE Inactive KEFLEX 500 MG ORAL CAPSULE 1 po qid K EFLEX 500 MG ORAL CAPSULE 044165 CEPHALEXIN Inactive COLCRYS 0.6 MG ORAL TABLET 1 tab qid prn gout COLCRYS 0.6 MG ORAL TABLET 751672 COLCHICINE Inactive FAMOTIDINE 20 MG ORAL TABLET by mouth twice a day 2017 FAMOTIDINE 20 MG ORAL TABLET 104809 FAMOTIDINE Inactive LOVENOX 100 MG/ML SUBCUTANEOUS SOLUTION One injection twice a da y LOVENOX 100 MG/ML SUBCUTANEOUS SOLUTION 817126 ENOXAPAR IN SODIUM Inactive Vital Signs Date [...] - Chem istry sodium, serum 139 mmol/L 613-830 9767/07/17 potassium, serum 4.2 mmol/L 3.5-5.2 chloride, serum 102 mmol/L 98-107 carbon dioxide, venous blood 28.9 mmol/L 21.0-32 .0 blood glucose 211 mg/dL 65-110 calcium, serum 10.6 mg/dL 8.5-10.1 urea nitrogen, blood 29 mg/dL 7-18 creatinine, serum 1.24 mg/dL 0.60-1.30 sodium, serum 141 mmol/L 414-835 4419/08/07 potassium, serum 4.5 mmol/L 3.5-5.2 chloride, serum [...] microalbumin, urine 30 mg/L 0-19 Lab Report: Lipid Panel, HEPATIC PANEL, HGBA1C - Chemistry cholesterol, serum 136 mg/dL 574-165 8978/12/06 triglyceride, serum, fasting 247 mg/dL 30-200 HDL cholesterol, serum 41 mg/dL 32-60 LDL cholesterol, serum 46 mg/dL 0-130 aspartate aminotransferase (SGOT), serum 22 U/L 15-37 alanine aminotransferase (SGPT), serum 30 U/L 12-78 bilirubin, serum, total 0.80 mg/dL 0.00-1.00 hemoglobin A1C, blood, as % of total hemoglobin 6.4 % 4.3-6.0 Encounters Code Encounter Date Provider Facility CPT-42507 Level 3 Est. Patient 18:25:53 CDT Mitch luis [facility] CPT-93906 Level 3 Est. Patient 19:43:34 CDT Mitch luis [facility] CPT-23067 Level 4 Est. Patient 09:30:18 CDT Mitch W L ee [facility] CPT-47255 Level 3 Est. Patient 15:10:14 CDT Joe kamara [facility]-68813 Level 3 Est. Patient 15:03:46 CDT Devonjustincarlitos kamara [facility] CPT-45429 Level 3 Est. Patient 14:21:06 CDT Mitch W L ee [facility] CPT-21586 Level 3 Est. Patient 14:52:06 CDT [facility]-21425 Level 3 Est. Patient 09:34:30 ELECTRICAL TEST ENGINEER Mitch Ambrose L ee [facility] CPT-61738 Level 3 Est. Patient 09:37:15 CDT Mitch Ambrose L janelle [facility]-69617 Level 3 Est. Patient 17:01:00 ELECTRICAL TEST ENGINEER Mitch W L ee [facility] CPT-88405 Level 3 Est. Patient 13:53:19 ELECTRICAL TEST ENGINEER Mitch W L janelle [facility] CPT-90261 Level 3 Est. Patient 19:19:37 ELECTRICAL TEST ENGINEER Mitch W L janelle [facility] CPT-54102 Level 3 Est. Patient 13:25:53 ELECTRICAL TEST ENGINEER Tavo toure MD [facility]-07502 Level 3 Est. Patient 18:17:28 CDT Mitch W L ee [facility] CPT-13637 Level 3 Est. Patient 15:22:57 CDT Mitch W L ee [facility] CPT-31468 Level 3 Est. Patient 18:21:50 CDT Mitch W L ee [facility] CPT-90853 Level 3 Est. Patient 18:20:38 CDT Mitch W L ee [facility] CPT-09629 Level 3 Est. Patient 15:37:55 CDT Mitch luis [facility] CPT-42416 Level 2 Est. Patient 15:54:44 CDT Carmine benton MD [facility] CPT-85613 Level 3 Est. Patient 21:46:01 ELECTRICAL TEST ENGINEER Mitch luis [facility] CPT-95191 Level 3 Est. Patient 22:15:50 CDT Mitch luis [facility] CPT-35002 Level 3 Est. Patient 10:48:15 CDT Mitch luis [facility] CPT-46934 Level 3 Est. Patient 23:20:57 CDT Tavo toure MD [facility] CPT-52567 Level 3 Est. Patient 16:26:13 CDT Mitch luis [facility] Procedures Code Procedure Name Date Entry Date Standard Desc ription CPT-JTINJ Asp/Joint Injection 18:47:02 CDT CPT-63545 Venipuncture Draw Fee 09:26:17 CDT CPT-25617 PT/INR - LAB USE ONLY 13:32:49 ELECTRICAL TEST ENGINEER CPT-82121 Venipuncture Draw Fee 13:32:49 ELECTRICAL TEST ENGINEER CPT-65838 PT/INR - LAB USE ONLY 10:34:49 ELECTRICAL TEST ENGINEER CPT-08680 Venipuncture Draw Fee 10:34:48 ELECTRICAL TEST ENGINEER CPT-83209 PT/INR - LAB USE ONLY 09:22:03 ELECTRICAL TEST ENGINEER CPT-80225 Venipuncture Draw Fee 09:22:02 ELECTRICAL TEST ENGINEER CPT-65915 Hemoccult IFOBT - LAB USE ONLY 10:27:22 CDT CPT-26478 Venipuncture Draw Fee 08:27:08 CDT CPT-76312 Liver Profile - LAB USE ONLY 08:27:07 CDT 2 CPT-87352 Microalbumin - LAB USE ONLY 08:27:07 CDT 20 25/05/09 CPT-77804 PT/INR - LAB USE ONLY 08:27:07 CDT CPT-32367 HGBA1C - LAB USE ONLY 08:27:07 CDT CPT-96502 CBC - LAB USE ONLY 08:27:07 CDT CPT-48445 Venipuncture Draw Fee 11:09:14 CDT CPT-75609 Venipuncture Draw Fee 08:32:21 ELECTRICAL TEST ENGINEER CPT-70509 Venipuncture Draw Fee 09:38:56 ELECTRICAL TEST ENGINEER CPT-77076 No Charge Offi Visit 21:36:07 CDT 1 CPT-16088 Venipuncture Draw Fee 10:13:28 ELECTRICAL TEST ENGINEER CPT-47041 Venipuncture Draw Fee 08:31:11 CDT CPT-54943 Aspir/Inject Med Joint 18:17:28 CDT CPT-22936 Venipuncture Draw Fee 10:13:30 CDT CPT-35662 Venipuncture Draw Fee 08:31:43 ELECTRICAL TEST ENGINEER CPT-JTINJ Joint Injection 18:34:50 CDT CPT-70334 Knee 3V 12:25:09 CDT CPT-75136 Venipuncture Draw Fee 12:15:57 CDT CPT-060 Medical Surveillance Exam 21:31:43 CDT 2011 CPT-59945 Venipuncture Draw Fee 08:32:05 ELECTRICAL TEST ENGINEER CPT-OV Office Visit 18:19:06 CDT
--- OUTSIDE RECORDS SUMMARY | 2020-01-18 12:59 | XMS REPORT | Clinical Summary ---
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 Inactive iMtch Urbina DO REACTIVE HYPOGLYCEMIA ICD-251.2 Inactive Mitch [...] by mouth twice a day 2017 FAMOTIDINE 45410860154 No Longer Active Mitch Urbina DO Active COLCRYS 0.6 MG ORAL TABLET 1 tab qid prn gout C OLCHICINE 40297489434 No Longer Active Mitch Urbina DO Active GLIMEPIRIDE 2 MG ORAL TABLET 1 po BID GLIMEPIRID E 43577218774 Active Renee Oconnor LPN Active KEFLEX 500 MG ORAL CAPSULE 1 po qid CEPHALEXI N 55505785301 No Longer Active Mitch Urbina DO Active LOSARTAN POTASSIUM 100 MG ORAL TABLET 1 pill by mouth daily, for blood pressure LOSARTAN POTASSIUM 32314504657 Active Mitch Urbina DO Active AMLODIPINE BESYLATE 5 MG ORAL TABLET 1 tablet by mouth daily 201 01/20/04 AMLODIPINE BESYLATE 22342138036 No Longer Active Joe fulton APRN Active MITIGARE 0.6 MG ORAL CAPSULE 2 capsules at onset of go ut pain, then take one capsule at 1 hour if symptoms persist. COLCHICINE 59 081261206 Active Mitch Urbina DO Active COUMADIN 1 MG ORAL TABLET 2 tabs orally daily with the 5mg tab to equal 7mg daily WARFARIN SODIUM 02443151510 Active Ana Ocampo Active INVOKANA 100 MG ORAL TABLET 1 tablet orally daily CANAGLIFLOZIN 29863501883 Active Mitch Urbina DO Active MINOXIDIL 2.5 MG ORAL TABLET 1 tablet daily for high blood press ure MINOXIDIL 14153902520 Active Renee Oconnor LPN Active MECLIZINE HCL 25 MG ORAL TABLET 1 po tid 3 days, then 1/2 ta b tid 3 days MECLIZINE HCL 83986279826 No Longer Active Corey SEGURA Active ALLOPURINOL 300 MG ORAL TABLET Take 1 tablet by mouth daily 2012 ALLOPURINOL 63881205348 No Longer Active Corey SEGURA Active CLONIDINE HCL 0.1 MG ORAL TABLET 1 po bid 7 days, then 1/2 t ab po bid 7 days CLONIDINE HCL 20566676733 No Longer Active Corey SEGURA Active COUMADIN 5 MG ORAL TABLET 1 tab PO daily WARFAR IN SODIUM 30897419778 Active Mitch Urbina DO Active COUMADIN 4 MG ORAL TABLET 1 tablet daily WARFAR IN SODIUM 91436421724 No Longer Active Corey SEGURA Active POLYTRIM 63381-2.1 UNIT/ML-% OPHTHALMIC SOLUTION 1 rui p in affected eye every 3 hours while awake x 7 days POLYMYXIN B-TRIMETHOP RIM 95648648006 No Longer Active Corey SEGURA Active LOSARTAN POTASSIUM-HCTZ 100-12.5 MG ORAL TABLET 1 by m outh daily for high blood pressure LOSARTAN POTASSIUM-HCTZ 60133667737 No Longer A ctive Mitch Urbina DO Active LISINOPRIL-HYDROCHLOROTHIAZIDE 20-12.5 MG ORAL TABLET 1 tab by m outh daily LISINOPRIL-HYDROCHLOROTHIAZIDE 31933783846 No Longer Active Mitch Urbina DO Active LISINOPRIL 20 MG ORAL TABLET 1 tab po at HS LIS INOPRIL 02447152983 No Longer Active Mitch Urbina DO Active COUMADIN 5 MG ORAL TABLET 1 by mouth every other day 2 WARFARIN SODIUM 07970860917 No Longer Active Mitch Urbina DO Active COUMADIN 6 MG ORAL TABLET 1 by mouth every other day 2 WARFARIN SODIUM 10725582053 No Longer Active Mitch Urbina DO Active SIMVASTATIN 40 MG ORAL TABLET 1 tab daily at bedtime SIMVASTATIN 98146296220 Active Renee Oconnor LPN Active SIMVASTATIN 20 MG ORAL TABLET 1 tab daily at bedtime 2 SIMVASTATIN 62836838269 No Longer Active Mitch Urbina DO Active LOVENOX 100 MG/ML SUBCUTANEOUS SOLUTION One injection twice a da y ENOXAPARIN SODIUM 86160262130 No Longer Active Carmine Yusuf MD Active JANUVIA 50 MG ORAL TABLET Take one by mouth daily SITAGLIPTIN PHOSPHATE 48384807140 Active Mitch Urbina DO Active JANUVIA 100 MG ORAL TABLET 1/2 by mouth every day 2011 SITAGLIPTIN PHOSPHATE 24284593028 No Longer Active Bijal Segal RN Acti ve METFORMIN HCL 500 MG ORAL TABLET 2 by mouth twice daily METFORMIN HCL 25287316304 Active Mitch Urbina DO Active COLCRYS 0.6 MG ORAL TABLET 1 po q 6 hours prn gout pain COLCHICINE 24491924749 No Longer Active Camila Reese Active LISINOPRIL 5 MG ORAL TABLET 1 by mouth every day 11/17 LISINOPRIL 36838777201 No Longer Active Nguyen Perez Active KLOR-CON 20 MEQ ORAL PACKET Take one by mouth daily 09/10/08 POTASSIUM CHLORIDE 21055284085 No Longer Active Nguyen Perez Active FUROSEMIDE 40 MG ORAL TABLET 1 by mouth daily F UROSEMIDE 12921519541 No Longer Active Nguyen Perez Active PROVIGIL 200 MG ORAL TABLET 1/2 tab po q day MODA FINIL 62449456951 Active Renee Oconnor LPN Active PROVIGIL 100 MG ORAL TABLET Take one by mouth daily 08/20/04 MODAFINIL 80395286875 No Longer Active Mitch Urbina DO Active BACTRIM DS 800-160 MG ORAL TABLET 1 tab by mouth twice daily 201 10/19/09 TRIMETHOPRIM-SULFAMETHOXAZOLE 05447977981 No Longer Active Elian Hays MD Active ADULT ASPIRIN LOW STRENGTH 81 MG ORAL TABLET DISINTEGR ATING 1 by mouth every daily ASPIRIN 34413156565 Active Mitch Urbina DO Ac tive METOPROLOL TARTRATE 50 MG ORAL TABLET 1 by mouth twice daily METOPROLOL TARTRATE 56121662284 Active Mitch Urbina DO Active BACTRIM DS 800-160 MG ORAL TABLET 1 tab by mouth twice daily 201 10/19/09 BACTRIM DS 800-160 MG ORAL TABLET 884435 TRIMETHOPRIM-SULFAMETHOXAZOLE Inactive PROVIGIL 100 MG ORAL TABLET Take one by mouth daily 08/20/04 PROVIGIL 100 MG ORAL TABLET 011514 MODAFINIL Inactive FUROSEMIDE 40 MG ORAL TABLET 1 by mouth daily FUROSEMIDE 40 MG ORAL TABLET 679577 FUROSEMIDE Inactive KLOR-CON 20 MEQ ORAL PACKET Take one by mouth daily 09/10/08 KLOR- CON 20 MEQ ORAL PACKET 1621515 POTASSIUM CHLORIDE Inactive LISINOPRIL 5 MG ORAL TABLET 1 by mouth every day 11/17 LISINOPRIL 5 MG ORAL TABLET 137877 LISINOPRIL Inactive COLCRYS 0.6 MG ORAL TABLET 1 po q 6 hours prn gout pain COLCRYS 0.6 MG ORAL TABLET 578073 COLCHICINE Inactive JANUVIA 100 MG ORAL TABLET 1/2 by mouth every day 2011 JANUVIA 100 MG ORAL TABLET SITAGLIPTIN PHOSPHATE Inactive SIMVASTATIN 20 MG ORAL TABLET 1 tab daily at bedtime 2 SIMVASTATIN 20 MG ORAL TABLET 954896 SIMVASTATIN Inactive COUMADIN 6 MG ORAL TABLET 1 by mouth every other day COUMADIN 6 MG ORAL TABLET 292022 WARFARIN SODIUM Inactive COUMADIN 5 MG ORAL TABLET 1 by mouth every other day COUMADIN 5 MG ORAL TABLET 370747 WARFARIN SODIUM Inactive LISINOPRIL 20 MG ORAL TABLET 1 tab po at HS LISINOPRIL 20 MG ORAL TABLET 755368 LISINOPRIL Inactive LISINOPRIL-HYDROCHLOROTHIAZIDE 20-12.5 MG ORAL TABLET 1 tab by m outh daily LISINOPRIL-HYDROCHLOROTHIAZIDE 20-12.5 MG ORAL TABLET 269416 LISINOPRIL-HYDROCHLOROTHIAZIDE Inactive POLYTRIM 44773-2.1 UNIT/ML-% OPHTHALMIC SOLUTION 1 rui p in affected eye every 3 hours while awake x 7 days POLYTRIM 1000 0-0.1 UNIT/ML-% OPHTHALMIC SOLUTION 403313 POLYMYXIN B-TRIMETHOPRIM Inactive COUMADIN 4 MG ORAL TABLET 1 tablet daily COUMADIN 4 MG ORAL TABLET 411658 WARFARIN SODIUM Inactive CLONIDINE HCL 0.1 MG ORAL TABLET 1 po bid 7 days, then 1/2 t ab po bid 7 days CLONIDINE HCL 0.1 MG ORAL TABLET 986238 CLONIDIN E HCL Inactive ALLOPURINOL 300 MG ORAL TABLET Take 1 tablet by mouth daily 2012 ALLOPURINOL 300 MG ORAL TABLET 201110 ALLOPURINOL I nactive MECLIZINE HCL 25 MG ORAL TABLET 1 po tid 3 days, then 1/2 ta b tid 3 days MECLIZINE HCL 25 MG ORAL TABLET 376074 MECLIZINE HCL Inactive AMLODIPINE BESYLATE 5 MG ORAL TABLET 1 tablet by mouth daily 201 01/20/04 AMLODIPINE BESYLATE 5 MG ORAL TABLET 652316 AMLODIPINE BESYLATE Inactive KEFLEX 500 MG ORAL CAPSULE 1 po qid K EFLEX 500 MG ORAL CAPSULE 388847 CEPHALEXIN Inactive COLCRYS 0.6 MG ORAL TABLET 1 tab qid prn gout COLCRYS 0.6 MG ORAL TABLET 257240 COLCHICINE Inactive FAMOTIDINE 20 MG ORAL TABLET by mouth twice a day 2017 FAMOTIDINE 20 MG ORAL TABLET 512065 FAMOTIDINE Inactive LOVENOX 100 MG/ML SUBCUTANEOUS SOLUTION One injection twice a da y LOVENOX 100 MG/ML SUBCUTANEOUS SOLUTION 578332 ENOXAPAR IN SODIUM Inactive Vital Signs Date [...] - Chem istry sodium, serum 139 mmol/L 437-965 1875/07/17 potassium, serum 4.2 mmol/L 3.5-5.2 chloride, serum 102 mmol/L 98-107 carbon dioxide, venous blood 28.9 mmol/L 21.0-32 .0 blood glucose 211 mg/dL 65-110 calcium, serum 10.6 mg/dL 8.5-10.1 urea nitrogen, blood 29 mg/dL 7-18 creatinine, serum 1.24 mg/dL 0.60-1.30 sodium, serum 141 mmol/L 432-145 4268/08/07 potassium, serum 4.5 mmol/L 3.5-5.2 chloride, serum 102 mmol/L 98-107 carbon dioxide, venous blood 31.7 mmol/L 21.0-32 .0 blood glucose 117 mg/dL 65-110 calcium, serum 10.5 mg/dL 8.5-10.1 urea nitrogen, blood 26 mg/dL 7-18 creatinine, serum 1.15 mg/dL 0.60-1.30 Lab Report: Lipid Panel, HEPATIC PANEL, HGBA1C - Chemistry cholesterol, serum 136 mg/dL 028-338 5461/12/06 triglyceride, serum, fasting 247 mg/dL 30-200 HDL cholesterol, serum 41 mg/dL 32-60 LDL cholesterol, serum 46 mg/dL 0-130 aspartate aminotransferase (SGOT), serum 22 U/L 15-37 alanine aminotransferase (SGPT), serum 30 U/L 12-78 bilirubin, serum, total 0.80 mg/dL 0.00-1.00 hemoglobin A1C, blood, as % of total hemoglobin 6.4 % 4.3-6.0 Encounters Code Encounter Date Provider Facility CPT-76740 Level 3 Est. Patient 18:25:53 CDT Mitch luis [facility] CPT-83348 Level 3 Est. Patient 19:43:34 CDT Mitch luis [facility] CPT-34876 Level 4 Est. Patient 09:30:18 CDT Mitch luis [facility] CPT-45876 Level 3 Est. Patient 15:10:14 CDT Joe kamara [facility] CPT-16583 Level 3 Est. Patient 15:03:46 CDT Joe kamara [facility] CPT-92627 Level 3 Est. Patient 14:21:06 CDT Mitch luis [facility] CPT-28131 Level 3 Est. Patient 14:52:06 CDT Joe kamara [facility] CPT-26037 Level 3 Est. Patient 09:34:30 FRACTIONATING STILL OPERATOR Mitch luis [facility] CPT-82773 Level 3 Est. Patient 09:37:15 CDT Mitch luis [facility] CPT-00584 Level 3 Est. Patient 17:01:00 FRACTIONATING STILL OPERATOR Mitch luis [facility] CPT-66576 Level 3 Est. Patient 13:53:19 FRACTIONATING STILL OPERATOR iMtch luis [facility] CPT-42071 Level 3 Est. Patient 19:19:37 FRACTIONATING STILL OPERATOR Mitch Arnol luis [facility] CPT-67794 Level 3 Est. Patient 13:25:53 FRACTIONATING STILL OPERATOR Tavo toure MD [facility] CPT-60939 Level 3 Est. Patient 18:17:28 CDT Mitch [address]ol luis [facility] CPT-25548 Level 3 Est. Patient 15:22:57 CDT Mitch luis [facility] CPT-38673 Level 3 Est. Patient 18:21:50 CDT Mitch luis [facility] CPT-53639 Level 3 Est. Patient 18:20:38 CDT Mitch Arnol luis [facility] CPT-44734 Level 3 Est. Patient 15:37:55 CDT Mitch Castellano [facility] CPT-10873 Level 2 Est. Patient 15:54:44 CDT Carmine benton MD [facility] CPT-35456 Level 3 Est. Patient 21:46:01 FRACTIONATING STILL OPERATOR Mitch luis [facility] CPT-08574 Level 3 Est. Patient 22:15:50 CDT Mitch [address] l[address] [facility] CPT-14668 Level 3 Est. Patient 10:48:15 CDT Mitch [address] l[address] [facility] CPT-46530 Level 3 Est. Patient 23:20:57 CDT Tavo toure MD [facility] CPT-74808 Level 3 Est. Patient 16:26:[address] [facility] Procedures Code Procedure Name Date Entry Date Standard Desc ription CPT-JTINJ Asp/Joint Injection 18:47:02 CDT CPT-65053 Venipuncture Draw Fee 09:26:17 CDT CPT-32990 PT/INR - LAB USE ONLY 13:32:49 FRACTIONATING STILL OPERATOR CPT-83854 Venipuncture Draw Fee 13:32:49 FRACTIONATING STILL OPERATOR CPT-90776 PT/INR - LAB USE ONLY 10:34:49 FRACTIONATING STILL OPERATOR CPT-61783 Venipuncture Draw Fee 10:34:48 FRACTIONATING STILL OPERATOR CPT-14089 PT/INR - LAB USE ONLY 09:22:03 FRACTIONATING STILL OPERATOR CPT-81125 Venipuncture Draw Fee 09:22:02 FRACTIONATING STILL OPERATOR CPT-54859 Hemoccult IFOBT - LAB USE ONLY 10:27:22 CDT CPT-76671 Venipuncture Draw Fee 08:27:08 CDT CPT-04799 Liver Profile - LAB USE ONLY 08:27:07 CDT 2 CPT-81716 Microalbumin - LAB USE ONLY 08:27:07 CDT 20 25/05/09 CPT-08742 PT/INR - LAB USE ONLY 08:27:07 CDT CPT-70747 HGBA1C - LAB USE ONLY 08:27:07 CDT CPT-92808 CBC - LAB USE ONLY 08:27:07 CDT CPT-31388 Venipuncture Draw Fee 11:09:14 CDT CPT-76537 Venipuncture Draw Fee 08:32:21 FRACTIONATING STILL OPERATOR CPT-44683 Venipuncture Draw Fee 09:38:56 FRACTIONATING STILL OPERATOR CPT-27230 No Charge Offi Visit 21:36:07 CDT 1 CPT-76580 Venipuncture Draw Fee 10:13:28 FRACTIONATING STILL OPERATOR CPT-10421 Venipuncture Draw Fee 08:31:11 CDT CPT-21542 Aspir/Inject Med Joint 18:17:28 CDT CPT-52512 Venipuncture Draw Fee 10:13:30 CDT CPT-00806 Venipuncture Draw Fee 08:31:43 FRACTIONATING STILL OPERATOR CPT-JTINJ Joint Injection 18:34:50 CDT CPT-79350 Knee 3V 12:25:09 CDT CPT-29563 Venipuncture Draw Fee 12:15:57 CDT CPT-060 Medical Surveillance Exam 21:31:43 CDT 2011 CPT-85890 Venipuncture Draw Fee 08:32:05 FRACTIONATING STILL OPERATOR CPT-OV Office Visit 18:19:06 CDT
--- OUTSIDE RECORDS SUMMARY | 2020-01-18 12:59 | XMS REPORT | Clinical Summary ---
Author Author Admin, Mitch Leon Organization [facility] Address Unknown Phone Unavailable Allergies, Adverse Reactions, [...] Coronary atherosclerosis of unspecified type of vessel, [place] or graft EDEMA 782.3 Resolved Mitch Urbina [...] 1 tablet by mouth daily AMLODIPINE BESYLATE 16453608231 No Longer Active Joe Williamson APRN Active MITIGARE 0.6 MG ORAL CAPS 2 capsules at onset of gout pain, then take one capsule at 1 hour if symptoms persist. COLCHICINE 59 209063565 Active Mitch Urbina DO Active COUMADIN 1 MG TAB 2 tabs orally daily with the 5mg tab to equal 7mg daily WARFARIN SODIUM 22586128930 Active Mitch Urbina DO Active COLCRYS 0.6 MG TABS 1 tab qid prn gout COLCHICINE 93438903998 Active Norma Cazares Active INVOKANA 100 MG ORAL TABS 1 tablet orally daily CANAGLIFLOZIN 25444687830 Active Brenda Gaymerman Active MINOXIDIL 2.5 MG TABS 1 tablet daily for high blood pressure 10/23 MINOXIDIL 51538694456 Active Ana Wallace Active MECLIZINE HCL 25 MG TAB 1 po tid 3 days, then 1/2 tab tid 3 days MECLIZINE HCL 19030157746 No Longer Active Corey SEGURA Active ALLOPURINOL 300 MG TABS Take 1 tablet by mouth daily 2 ALLOPURINOL 93107967122 No Longer Active Corey SEGURA Activ e CLONIDINE HCL 0.1 MG TABS 1 po bid 7 days, then 1/2 tab po b id 7 days CLONIDINE HCL 04781539239 No Longer Active Corey SEGURA Active COUMADIN 5 MG TABS 1 tab PO daily WARFARIN SODIUM 50935786731 Active Mitch Urbina DO Active COUMADIN 4 MG TABS 1 tablet daily WARFARIN SODI UM 14553018861 No Longer Active Corey SEGURA Active POLYTRIM 70411-7.1 UNIT/ML-% SOLN 1 drop in affected e ye every 3 hours while awake x 7 days POLYMYXIN B-TRIMETHOPRIM 90876399056 N o Longer Active Corey SEGURA Active LOSARTAN POTASSIUM-HCTZ 100-12.5 MG TABS 1 by mouth da [place] for high blood pressure LOSARTAN POTASSIUM-HCTZ 23978974205 Active Stephy Urbina DO Active LISINOPRIL-HYDROCHLOROTHIAZIDE 20-12.5 MG TABS 1 tab by mouth da rocky LISINOPRIL-HYDROCHLOROTHIAZIDE 34436284236 No Longer Active Mitch luis DO Active LISINOPRIL 20 MG TABS 1 tab po at HS LISINOPRIL 23180476583 No Longer Active Mitch Urbina DO Active COUMADIN 5 MG TABS 1 by mouth every other day WARFARIN SODIUM 90036005464 No Longer Active Mitch Urbina DO Active COUMADIN 6 MG TABS 1 by mouth every other day WARFARIN SODIUM 51390038224 No Longer Active Mitch Urbina DO Active SIMVASTATIN 40 MG TABS 1 tab daily at bedtime S IMVASTATIN 31557044715 Active Mitch Urbina DO Active SIMVASTATIN 20 MG TABS 1 tab daily at bedtime S IMVASTATIN 88661856219 No Longer Active Mitch Urbina DO Active LOVENOX 100 MG/ML SC SOLN One injection twice a day 09/15/15 ENOXAPARIN SODIUM 26194943399 No Longer Active Carmine Navarrete ctive JANUVIA 50 MG TABS Take one by mouth daily DIEGO GLIPTIN PHOSPHATE 30514631270 Active Mitch Urbina DO Active JANUVIA 100 MG TABS 1/2 by mouth every day DIEGO GLIPTIN PHOSPHATE 98327905914 No Longer Active Bijal Segal RN Active METFORMIN HCL 500 MG TABS 2 by mouth twice daily METFORMIN HCL 03291924943 Active Mitch Urbina DO Active GLIMEPIRIDE 4 MG TABS 1 tab po bid GLIMEPIRIDE 693749 63595 Active Mitch Urbina DO Active COLCRYS 0.6 MG TABS 1 po q 6 hours prn gout pain 03/02 COLCHICINE 46569288807 No Longer Active Camila Reese Active LISINOPRIL 5 MG TABS 1 by mouth every day LISIN OPRIL 20691211469 No Longer Active Nguyen Perez Active KLOR-CON 20 MEQ PACK Take one by mouth daily 8 POTASSIUM CHLORIDE 99956397927 No Longer Active Nguyen Perez Active FUROSEMIDE 40 MG TABS 1 by mouth daily FUROSEMI DE 09606565888 No Longer Active Nguyen Perez Active PROVIGIL 200 MG TABS 1/2 tab po q day MODAFINIL 64959 671707 Active Kathie Juan RPT,RMA Active PROVIGIL 100 MG TABS Take one by mouth daily MO DAFINIL 83458218777 No Longer Active Mitch Urbina DO Active BACTRIM DS 800-160 MG TAB 1 tab by mouth twice daily 2 TRIMETHOPRIM-SULFAMETHOXAZOLE 59197814962 No Longer Active Renan Hays MD Active FAMOTIDINE 20 MG TABS by mouth twice a day FAMOTI DINE 63536263978 Active Mitch Urbina DO Active ADULT ASPIRIN LOW STRENGTH 81 MG TBDP 1 by mouth every daily ASPIRIN 59634673531 Active Mitch Urbina DO Active METOPROLOL TARTRATE 50 MG TABS 1 by mouth twice daily METOPROLOL TARTRATE 41683070564 Active Mitch Urbnia DO Active BACTRIM DS 800-160 MG TAB 1 tab by mouth twice daily 2 BACTRIM DS 800-160 MG TAB 325652 TRIMETHOPRIM-SULFAMETHOXAZOLE Inac tive PROVIGIL 100 MG TABS Take one by mouth daily 4 PROVIGIL 100 MG TABS 296736 MODAFINIL Inactive FUROSEMIDE 40 MG TABS 1 by mouth daily FU ROSEMIDE 40 MG TABS 736451 FUROSEMIDE Inactive KLOR-CON 20 MEQ PACK Take one by mouth daily 8 KLOR-CON 20 MEQ PACK 682527 POTASSIUM CHLORIDE Inactive LISINOPRIL 5 MG TABS 1 by mouth every day LISINOPRIL 5 MG TABS 021139 LISINOPRIL Inactive COLCRYS 0.6 MG TABS 1 po q 6 hours prn gout pain 03/02 COLCRYS 0.6 MG TABS 999932 COLCHICINE Inactive JANUVIA 100 MG TABS 1/2 by mouth every day JANUVI A 100 MG TABS SITAGLIPTIN PHOSPHATE Inactive SIMVASTATIN 20 MG TABS 1 tab daily at bedtime SIMVASTATIN 20 MG TABS 609446 SIMVASTATIN Inactive COUMADIN 6 MG TABS 1 by mouth every other day COUMADIN 6 MG TABS 697660 WARFARIN SODIUM Inactive COUMADIN 5 MG TABS 1 by mouth every other day COUMADIN 5 MG TABS 697343 WARFARIN SODIUM Inactive LISINOPRIL 20 MG TABS 1 tab po at HS KOKI NOPRIL 20 MG TABS 438330 LISINOPRIL Inactive LISINOPRIL-HYDROCHLOROTHIAZIDE 20-12.5 MG TABS 1 tab by mouth da rocky LISINOPRIL-HYDROCHLOROTHIAZIDE 20-12.5 MG TABS 229899 LISINOPRIL-HYDROCHLOROTHIAZIDE Inactive POLYTRIM 86311-9.1 UNIT/ML-% SOLN 1 drop in affected e ye every 3 hours while awake x 7 days POLYTRIM 94112-0.1 UNIT/ML-% SOLN 54665 7 POLYMYXIN B-TRIMETHOPRIM Inactive COUMADIN 4 MG TABS 1 tablet daily COUMADIN 4 MG TABS 865889 WARFARIN SODIUM Inactive CLONIDINE HCL 0.1 MG TABS 1 po bid 7 days, then 1/2 tab po b id 7 days CLONIDINE HCL 0.1 MG TABS 408804 CLONIDINE HCL I nactive ALLOPURINOL 300 MG TABS Take 1 tablet by mouth daily 2 ALLOPURINOL 300 MG TABS 322261 ALLOPURINOL Inactive MECLIZINE HCL 25 MG TAB 1 po tid 3 days, then 1/2 tab tid 3 days MECLIZINE HCL 25 MG TAB 484345 MECLIZINE HCL Inactive AMLODIPINE BESYLATE 5 MG TABS 1 tablet by mouth daily AMLODIPINE BESYLATE 5 MG TABS 265602 AMLODIPINE BESYLATE Inactive LOVENOX 100 MG/ML SC SOLN One injection twice a day 09/15/15 LOVENOX 100 MG/ML SC SOLN 054697 ENOXAPARIN SODIUM Inactive Vital Signs Date Name [...] Range Description Chart Maintenance: hemoccult added to [facility] - Chemistry occult blood, stool (E&M) Positive Lab Report: HGBA1C - Chemistry hemoglobin A1C, blood, as % of total hemoglobin 6.6 % 4.3-6.0 Lab Report: Lipid Panel, HEPATIC PANEL, MICROALB/CREAT W/RATIO, HGBA1C, CBC - Chemistry cholesterol, serum 136 mg/dL 932-076 0246/08/09 triglyceride, serum, fasting 187 mg/dL 30-200 HDL [...] 1.0-3.5 Encounters Code Encounter Date Provider Facility CPT-74363 Level 3 Est. Patient 15:10:14 CDT Joe kamara [facility] CPT-34093 Level 3 Est. Patient 15:03:46 CDT Joe kamara [facility] CPT-96823 Level 3 Est. Patient 14:21:06 CDT Mitch luis [facility] CPT-07774 Level 3 Est. Patient 14:52:06 CDT Joe kamara [facility] CPT-71582 Level 3 Est. Patient 09:34:30 SPORTS DOCTOR Mitch luis [facility] CPT-47449 Level 3 Est. Patient 09:37:15 CDT Mitch luis [facility] CPT-35229 Level 3 Est. Patient 17:01:00 SPORTS DOCTOR Mitch luis [facility] CPT-62104 Level 3 Est. Patient 13:53:19 SPORTS DOCTOR Mitch luis [facility] CPT-01051 Level 3 Est. Patient 19:19:37 SPORTS DOCTOR Mitch luis [facility] CPT-30498 Level 3 Est. Patient 13:25:53 SPORTS DOCTOR Tavo toure MD [facility] CPT-01231 Level 3 Est. Patient 18:17:28 CDT Mitch luis [facility] CPT-72932 Level 3 Est. Patient 15:22:57 CDT Mitch Arnol luis DO [facility] CPT-33398 Level 3 Est. Patient 18:21:50 CDT Mitch W L janelle [facility] CPT-29514 Level 3 Est. Patient 18:20:38 CDT Mitch Arnol luis [facility] CPT-44735 Level 3 Est. Patient 15:37:55 CDT Mitch Arnol luis [facility] CPT-67339 Level 2 Est. Patient 15:54:44 CDT Carmine benton MD [facility] CPT-01440 Level 3 Est. Patient 21:46:01 SPORTS DOCTOR Mitch luis [facility] CPT-03286 Level 3 Est. Patient 22:15:50 CDT Mitch Arnol luis [facility] CPT-67488 Level 3 Est. Patient 10:48:15 CDT Mitch luis [facility] CPT-16433 Level 3 Est. Patient 23:20:57 CDT Tavo toure MD [facility] CPT-57719 Level 3 Est. Patient 16:26:13 CDT Mitch Castellano janelle [facility] Procedures Code Procedure Name Date Entry Date Standard Desc ription CPT-92232 PT/INR - LAB USE ONLY 13:32:49 SPORTS DOCTOR CPT-43253 Venipuncture Draw Fee 13:32:49 SPORTS DOCTOR CPT-07997 PT/INR - LAB USE ONLY 10:34:49 SPORTS DOCTOR CPT-65841 Venipuncture Draw Fee 10:34:48 SPORTS DOCTOR CPT-12953 PT/INR - LAB USE ONLY 09:22:03 SPORTS DOCTOR CPT-63364 Venipuncture Draw Fee 09:22:02 SPORTS DOCTOR CPT-09091 Hemoccult IFOBT - LAB USE ONLY 10:27:22 CDT CPT-29157 Venipuncture Draw Fee 08:27:08 CDT CPT-13337 Liver Profile - LAB USE ONLY 08:27:07 CDT 2 CPT-72303 Microalbumin - LAB USE ONLY 08:27:07 CDT 20 25/05/09 CPT-19992 PT/INR - LAB USE ONLY 08:27:07 CDT CPT-85576 HGBA1C - LAB USE ONLY 08:27:07 CDT CPT-82645 CBC - LAB USE ONLY 08:27:07 CDT CPT-04754 Venipuncture Draw Fee 11:09:14 CDT CPT-33984 Venipuncture Draw Fee 08:32:21 SPORTS DOCTOR CPT-33191 Venipuncture Draw Fee 09:38:56 SPORTS DOCTOR CPT-77612 No Charge Offi Visit 21:36:07 CDT 1 CPT-41986 Venipuncture Draw Fee 10:13:28 SPORTS DOCTOR CPT-75064 Venipuncture Draw Fee 08:31:11 CDT CPT-72838 Aspir/Inject Med Joint 18:17:28 CDT CPT-95535 Venipuncture Draw Fee 10:13:30 CDT CPT-31185 Venipuncture Draw Fee 08:31:43 SPORTS DOCTOR CPT-JTINJ Joint Injection 18:34:50 CDT CPT-44741 Knee 3V 12:25:09 CDT CPT-41774 Venipuncture Draw Fee 12:15:57 CDT CPT-060 Medical Surveillance Exam 21:31:43 CDT 2011 CPT-48365 Venipuncture Draw Fee 08:32:05 SPORTS DOCTOR CPT-OV Office Visit 18:19:06 CDT
--- OUTSIDE RECORDS SUMMARY | 2020-01-18 12:59 | XMS REPORT | Clinical Summary ---
Author Author Admin, Mitch Leon Organization [facility] Address Unknown Phone Unavailable Allergies, [...] Coronary atherosclerosis of unspecified type of vessel, [place] or graft EDEMA 782.3 Resolved Mitch Urbina [...] Status Provider Patient Instruction MINOXIDIL 2.5 MG TABS 1 tablet daily for high blood pressure 10/23 MINOXIDIL 68620499880 Active Mitch Arnol Carlitos VELASQUEZ Active AMLODIPINE BESYLATE 5 MG TABS 1 tablet by mouth daily AMLODIPINE BESYLATE 02075599165 Active Domi Rivera MA Active MECLIZINE HCL 25 MG TAB 1 po tid 3 days, then 1/2 tab tid 3 days MECLIZINE HCL 95705284913 No Longer Active Corey SEGURA Active ALLOPURINOL 300 MG TABS Take 1 tablet by mouth daily 2 ALLOPURINOL 00556198849 No Longer Active Corey SEGURA Activ e CLONIDINE HCL 0.1 MG TABS 1 po bid 7 days, then 1/2 tab po b id 7 days CLONIDINE HCL 40388961803 No Longer Active Corey SEGURA Active COUMADIN 5 MG TABS 1 tab PO daily WARFARIN SODIUM 61614603089 Active Mitch Urbina DO Active COUMADIN 4 MG TABS 1 tablet daily WARFARIN SODI UM 90818106388 No Longer Active Corey SEGURA Active POLYTRIM 44780-8.1 UNIT/ML-% SOLN 1 drop in affected e ye every 3 hours while awake x 7 days POLYMYXIN B-TRIMETHOPRIM 58684366406 N o Longer Active Corey SEGURA Active LOSARTAN POTASSIUM-HCTZ 100-12.5 MG TABS 1 by mouth da rocky for high blood pressure LOSARTAN POTASSIUM-HCTZ 59942270236 Active Stephy Urbina DO Active LISINOPRIL-HYDROCHLOROTHIAZIDE 20-12.5 MG TABS 1 tab by mouth da rocky LISINOPRIL-HYDROCHLOROTHIAZIDE 24162512781 No Longer Active Mitch luis DO Active LISINOPRIL 20 MG TABS 1 tab po at HS LISINOPRIL 20760695240 No Longer Active Mitch Urbina DO Active COUMADIN 5 MG TABS 1 by mouth every other day WARFARIN SODIUM 71810805317 No Longer Active Mitch Urbina DO Active COUMADIN 6 MG TABS 1 by mouth every other day WARFARIN SODIUM 92502147066 No Longer Active Mitch Urbina DO Active COLCRYS 0.6 MG TABS 1 tab qid prn gout COLCHICINE 11917234502 Active Corey SEGURA Active SIMVASTATIN 40 MG TABS 1 tab daily at bedtime S IMVASTATIN 78036215636 Active Domi Rivera MA Active SIMVASTATIN 20 MG TABS 1 tab daily at bedtime S IMVASTATIN 63278663553 No Longer Active Mitch Urbina DO Active LOVENOX 100 MG/ML SC SOLN One injection twice a day 09/15/15 ENOXAPARIN SODIUM 00019252525 No Longer Active Carmine Navarrete ctive JANUVIA 50 MG TABS Take one by mouth daily DIEGO GLIPTIN PHOSPHATE 56067738593 Active Kathie Juan RPT,RMA Active JANUVIA 100 MG TABS 1/2 by mouth every day DIEGO GLIPTIN PHOSPHATE 76778062689 No Longer Active Bijal Segal RN Active METFORMIN HCL 500 MG TABS 2 by mouth twice daily METFORMIN HCL 08058014946 Active Mitch Urbina DO Active GLIMEPIRIDE 4 MG TABS 1 tab po bid GLIMEPIRIDE 016289 00579 Active Mitch Urbina DO Active COLCRYS 0.6 MG TABS 1 po q 6 hours prn gout pain 03/02 COLCHICINE 82744708639 No Longer Active Camila Reese Active LISINOPRIL 5 MG TABS 1 by mouth every day LISIN OPRIL 62868779792 No Longer Active Nguyenmolly Perez Active KLOR-CON 20 MEQ PACK Take one by mouth daily 8 POTASSIUM CHLORIDE 50700460529 No Longer Active Nguyenmolly Perez Active FUROSEMIDE 40 MG TABS 1 by mouth daily FUROSEMI DE 21301941715 No Longer Active Nguyenmolly Perez Active PROVIGIL 200 MG TABS 1/2 tab po q day MODAFINIL 48724 074206 Active Kathie Juan RPT,RMA Active PROVIGIL 100 MG TABS Take one by mouth daily MO DAFINIL 48965370651 No Longer Active Mitch Urbina DO Active BACTRIM DS 800-160 MG TAB 1 tab by mouth twice daily TRIMETHOPRIM-SULFAMETHOXAZOLE 72117279522 No Longer Active Renan Hays MD Active FAMOTIDINE 20 MG TABS by mouth twice a day FAMOTI DINE 70564854972 Active Mitch Urbina DO Active ADULT ASPIRIN LOW STRENGTH 81 MG TBDP 1 by mouth every daily ASPIRIN 84421892092 Active Mitch Urbina DO Active METOPROLOL TARTRATE 50 MG TABS 1 by mouth twice daily METOPROLOL TARTRATE 85824817310 Active Kathie Juan RPT,RMA Acti ve BACTRIM DS 800-160 MG TAB 1 tab by mouth twice daily 2 BACTRIM DS 800-160 MG TAB 329103 TRIMETHOPRIM-SULFAMETHOXAZOLE Inac tive PROVIGIL 100 MG TABS Take one by mouth daily 4 PROVIGIL 100 MG TABS 517281 MODAFINIL Inactive FUROSEMIDE 40 MG TABS 1 by mouth daily FU ROSEMIDE 40 MG TABS 890962 FUROSEMIDE Inactive KLOR-CON 20 MEQ PACK Take one by mouth daily 8 KLOR-CON 20 MEQ PACK 885570 POTASSIUM CHLORIDE Inactive LISINOPRIL 5 MG TABS 1 by mouth every day LISINOPRIL 5 MG TABS 215644 LISINOPRIL Inactive COLCRYS 0.6 MG TABS 1 po q 6 hours prn gout pain 03/02 COLCRYS 0.6 MG TABS 986445 COLCHICINE Inactive JANUVIA 100 MG TABS 1/2 by mouth every day JANUVI A 100 MG TABS SITAGLIPTIN PHOSPHATE Inactive SIMVASTATIN 20 MG TABS 1 tab daily at bedtime SIMVASTATIN 20 MG TABS 584547 SIMVASTATIN Inactive COUMADIN 6 MG TABS 1 by mouth every other day COUMADIN 6 MG TABS 379859 WARFARIN SODIUM Inactive COUMADIN 5 MG TABS 1 by mouth every other day COUMADIN 5 MG TABS 985644 WARFARIN SODIUM Inactive LISINOPRIL 20 MG TABS 1 tab po at HS KOKI NOPRIL 20 MG TABS 104101 LISINOPRIL Inactive LISINOPRIL-HYDROCHLOROTHIAZIDE 20-12.5 MG TABS 1 tab by mouth da rocky LISINOPRIL-HYDROCHLOROTHIAZIDE 20-12.5 MG TABS 062366 LISINOPRIL-HYDROCHLOROTHIAZIDE Inactive POLYTRIM 07239-7.1 UNIT/ML-% SOLN 1 drop in affected e ye every 3 hours while awake x 7 days POLYTRIM 42222-5.1 UNIT/ML-% SOLN 80880 7 POLYMYXIN B-TRIMETHOPRIM Inactive COUMADIN 4 MG TABS 1 tablet daily COUMADIN 4 MG TABS 779829 WARFARIN SODIUM Inactive CLONIDINE HCL 0.1 MG TABS 1 po bid 7 days, then 1/2 tab po b id 7 days CLONIDINE HCL 0.1 MG TABS 551736 CLONIDINE HCL I nactive ALLOPURINOL 300 MG TABS Take 1 tablet by mouth daily 2 ALLOPURINOL 300 MG TABS 132424 ALLOPURINOL Inactive MECLIZINE HCL 25 MG TAB 1 po tid 3 days, then 1/2 tab tid 3 days MECLIZINE HCL 25 MG TAB 023901 MECLIZINE HCL Inactive LOVENOX 100 MG/ML SC SOLN One injection twice a day 09/15/15 LOVENOX 100 MG/ML SC SOLN 526712 ENOXAPARIN SODIUM Inactive Vital Signs Date Name [...] Ag - Chemistry sodium, serum 141 mmol/L 283-417 2994/07/06 potassium, serum 4.4 mmol/L 3.5-5.2 chloride, serum [...] - Chem istry sodium, serum 136 mmol/L 431-698 1811/01/14 carbon dioxide, venous blood 25.4 mmol/L 21.0-32 [...] 7.0 % 4.3-6.0 cholesterol, serum 120 mg/dL 003-350 0408/07/06 triglyceride, serum, fasting 186 mg/dL 30-200 HDL [...] 1.0-3.5 Encounters Code Encounter Date Provider Facility CPT-92881 Level 3 Est. Patient 09:34:30 RAIL SETTER Mitch luis [facility] CPT-60593 Level 3 Est. Patient 09:37:15 CDT Mitch luis [facility] CPT-51334 Level 3 Est. Patient 17:01:00 RAIL SETTER Mitch W L ee DO [facility] CPT-80268 Level 3 Est. Patient 13:53:19 RAIL SETTER Mitch W L ee DO [facility] CPT-74340 Level 3 Est. Patient 19:19:37 RAIL SETTER Mitch W L ee DO [facility] CPT-13721 Level 3 Est. Patient 13:25:53 RAIL SETTER Tavo toure MD [facility] CPT-59114 Level 3 Est. Patient 18:17:28 CDT Mitch W L ee [facility] CPT-21096 Level 3 Est. Patient 15:22:57 CDT Mitch W L ee DO [facility] CPT-47526 Level 3 Est. Patient 18:21:50 CDT Mitch W L ee DO [facility] CPT-53420 Level 3 Est. Patient 18:20:38 CDT Mitch W L ee DO [facility] CPT-74837 Level 3 Est. Patient 15:37:55 CDT Mitch W L ee [facility] CPT-01301 Level 2 Est. Patient 15:54:44 CDT Carmine benton MD [facility] CPT-02891 Level 3 Est. Patient 21:46:01 RAIL SETTER Mitch W L ee DO [facility] CPT-99970 Level 3 Est. Patient 22:15:50 CDT Mitch W L ee [facility] CPT-22241 Level 3 Est. Patient 10:48:15 CDT Mitch W L ee [facility] CPT-22808 Level 3 Est. Patient 23:20:57 CDT Tavo toure MD [facility] CPT-23180 Level 3 Est. Patient 16:26:13 CDT Mitch Ambrose L ee [facility] Procedures Code Procedure Name Date Entry Date Standard Desc ription CPT-72145 Venipuncture Draw Fee 09:38:56 RAIL SETTER CPT-77036 No Charge Offi Visit 21:36:07 CDT 1 CPT-22151 Venipuncture Draw Fee 10:13:28 RAIL SETTER CPT-11461 Venipuncture Draw Fee 08:31:11 CDT CPT-88156 Aspir/Inject Med Joint 18:17:28 CDT CPT-23902 Venipuncture Draw Fee 10:13:30 CDT CPT-42492 Venipuncture Draw Fee 08:31:43 RAIL SETTER CPT-JTINJ Joint Injection 18:34:50 CDT CPT-80434 Knee 3V 12:25:09 CDT CPT-79199 Venipuncture Draw Fee 12:15:57 CDT CPT-060 Medical Surveillance Exam 21:31:43 CDT 2011 CPT-61608 Venipuncture Draw Fee 08:32:05 RAIL SETTER CPT-OV Office Visit 18:19:06 CDT
--- OUTSIDE RECORDS SUMMARY | 2020-01-18 13:00 | XMS REPORT | Clinical Summary ---
Author Author Admin, Mitch Leon Organization [facility] Address Unknown Phone Unavailable Allergies, [...] Coronary atherosclerosis of unspecified type of vessel, [place] or graft EDEMA 782.3 Active Mitch Urbina [...] 1 tablet by mouth daily AMLODIPINE BESYLATE 04524004512 Active Mitch Urbina DO Active MECLIZINE HCL 25 MG TAB 1 po tid 3 days, then 1/2 tab tid 3 days MECLIZINE HCL 59159814846 No Longer Active Corey SEGURA Active ALLOPURINOL 300 MG TABS Take 1 tablet by mouth daily 2 ALLOPURINOL 20200250544 No Longer Active Corey SEGURA Activ e CLONIDINE HCL 0.1 MG TABS 1 po bid 7 days, then 1/2 tab po b id 7 days CLONIDINE HCL 07751639121 No Longer Active Corey SEGURA Active COUMADIN 5 MG TABS 1 tab PO daily WARFARIN SODIUM 09441700639 Active Mitch Urbina DO Active COUMADIN 4 MG TABS 1 tablet daily WARFARIN SODI UM 23053665728 No Longer Active Corey SEGURA Active POLYTRIM 64524-4.1 UNIT/ML-% SOLN 1 drop in affected e ye every 3 hours while awake x 7 days POLYMYXIN B-TRIMETHOPRIM 87095951640 N o Longer Active Corey SEGURA Active LOSARTAN POTASSIUM-HCTZ 100-12.5 MG TABS 1 by mouth da [place] for high blood pressure LOSARTAN POTASSIUM-HCTZ 95804247735 Active Stephy Urbina DO Active LISINOPRIL-HYDROCHLOROTHIAZIDE 20-12.5 MG TABS 1 tab by mouth da rocky LISINOPRIL-HYDROCHLOROTHIAZIDE 43945903551 No Longer Active Mitch luis DO Active LISINOPRIL 20 MG TABS 1 tab po at HS LISINOPRIL 39454641314 No Longer Active Mitch Urbina DO Active COUMADIN 5 MG TABS 1 by mouth every other day WARFARIN SODIUM 13268716959 No Longer Active Mitch Urbina DO Active COUMADIN 6 MG TABS 1 by mouth every other day WARFARIN SODIUM 07132985517 No Longer Active Mitch Urbina DO Active COLCRYS 0.6 MG TABS 1 tab qid prn gout COLCHICINE 05707342730 Active Corey SEGURA Active SIMVASTATIN 40 MG TABS 1 tab daily at bedtime S IMVASTATIN 06356572695 Active Mitch Urbina DO Active SIMVASTATIN 20 MG TABS 1 tab daily at bedtime S IMVASTATIN 19661123629 No Longer Active Mitch Urbina DO Active LOVENOX 100 MG/ML SC SOLN One injection twice a day 09/15/15 ENOXAPARIN SODIUM 52021973378 No Longer Active Carmine Navarrtee ctive JANUVIA 50 MG TABS Take one by mouth daily DIEGO GLIPTIN PHOSPHATE 72406580010 Active Domi Rivera MA Active JANUVIA 100 MG TABS 1/2 by mouth every day DIEGO GLIPTIN PHOSPHATE 80375926198 No Longer Active Bijal Segal RN Active METFORMIN HCL 500 MG TABS 2 by mouth twice daily METFORMIN HCL 80837063858 Active Mitch Urbina DO Active GLIMEPIRIDE 4 MG TABS 1 tab po bid GLIMEPIRIDE 288646 55527 Active Mitch Urbina DO Active COLCRYS 0.6 MG TABS 1 po q 6 hours prn gout pain 03/02 COLCHICINE 86451692367 No Longer Active Camila Reese Active LISINOPRIL 5 MG TABS 1 by mouth every day LISIN OPRIL 98243887361 No Longer Active Nguyenmolly Perez Active KLOR-CON 20 MEQ PACK Take one by mouth daily 8 POTASSIUM CHLORIDE 38336393699 No Longer Active Nguyen Perez Active FUROSEMIDE 40 MG TABS 1 by mouth daily FUROSEMI DE 76648811169 No Longer Active Nguyen Perez Active PROVIGIL 200 MG TABS 1/2 tab po q day MODAFINIL 95326 270086 Active Mitch Urbina DO Active PROVIGIL 100 MG TABS Take one by mouth daily MO DAFINIL 86867390087 No Longer Active Mitch Urbina DO Active BACTRIM DS 800-160 MG TAB 1 tab by mouth twice daily 2 TRIMETHOPRIM-SULFAMETHOXAZOLE 30820799757 No Longer Active Renan Hays MD Active FAMOTIDINE 20 MG TABS by mouth twice a day FAMOTI DINE 36593661658 Active Mitch W Carlitos DO Active ADULT ASPIRIN LOW STRENGTH 81 MG TBDP 1 by mouth every daily ASPIRIN 62160483622 Active Mitch Urbina DO Active METOPROLOL TARTRATE 50 MG TABS 1 by mouth twice daily METOPROLOL TARTRATE 47630457604 Active Curly Coker MD Active BACTRIM DS 800-160 MG TAB 1 tab by mouth twice daily 2 BACTRIM DS 800-160 MG TAB TRIMETHOPRIM-SULFAMETHOXAZOLE Inac tive PROVIGIL 100 MG TABS Take one by mouth daily 4 PROVIGIL 100 MG TABS 379374 MODAFINIL Inactive FUROSEMIDE 40 MG TABS 1 by mouth daily FU ROSEMIDE 40 MG TABS 309699 FUROSEMIDE Inactive KLOR-CON 20 MEQ PACK Take one by mouth daily 8 KLOR-CON 20 MEQ PACK 203925 POTASSIUM CHLORIDE Inactive LISINOPRIL 5 MG TABS 1 by mouth every day LISINOPRIL 5 MG TABS 928253 LISINOPRIL Inactive COLCRYS 0.6 MG TABS 1 po q 6 hours prn gout pain 03/02 COLCRYS 0.6 MG TABS 197404 COLCHICINE Inactive JANUVIA 100 MG TABS 1/2 by mouth every day JANUVI A 100 MG TABS SITAGLIPTIN PHOSPHATE Inactive SIMVASTATIN 20 MG TABS 1 tab daily at bedtime SIMVASTATIN 20 MG TABS 365143 SIMVASTATIN Inactive COUMADIN 6 MG TABS 1 by mouth every other day COUMADIN 6 MG TABS 345196 WARFARIN SODIUM Inactive COUMADIN 5 MG TABS 1 by mouth every other day COUMADIN 5 MG TABS 576226 WARFARIN SODIUM Inactive LISINOPRIL 20 MG TABS 1 tab po at HS KOKI NOPRIL 20 MG TABS 596293 LISINOPRIL Inactive LISINOPRIL-HYDROCHLOROTHIAZIDE 20-12.5 MG TABS 1 tab by mouth da rocky LISINOPRIL-HYDROCHLOROTHIAZIDE 20-12.5 MG TABS 617346 LISINOPRIL-HYDROCHLOROTHIAZIDE Inactive POLYTRIM 94332-0.1 UNIT/ML-% SOLN 1 drop in affected e ye every 3 hours while awake x 7 days POLYTRIM 68667-5.1 UNIT/ML-% SOLN 37499 7 POLYMYXIN B-TRIMETHOPRIM Inactive COUMADIN 4 MG TABS 1 tablet daily COUMADIN 4 MG TABS 644581 WARFARIN SODIUM Inactive CLONIDINE HCL 0.1 MG TABS 1 po bid 7 days, then 1/2 tab po b id 7 days CLONIDINE HCL 0.1 MG TABS 563002 CLONIDINE HCL I nactive ALLOPURINOL 300 MG TABS Take 1 tablet by mouth daily 2 ALLOPURINOL 300 MG TABS 833832 ALLOPURINOL Inactive MECLIZINE HCL 25 MG TAB 1 po tid 3 days, then 1/2 tab tid 3 days MECLIZINE HCL 25 MG TAB 053563 MECLIZINE HCL Inactive LOVENOX 100 MG/ML SC SOLN One injection twice a day 09/15/15 LOVENOX 100 MG/ML SC SOLN 020542 ENOXAPARIN SODIUM Inactive Vital Signs Date Name [...] Ag - Chemistry sodium, serum 141 mmol/L 966-678 9453/07/06 potassium, serum 4.4 mmol/L 3.5-5.2 chloride, serum [...] Panel - Chemistry sodium, serum 137 mmol/L 682-996 8860/11/14 potassium, serum 4.4 mmol/L 3.5-5.2 chloride, serum [...] 8.0 % 4.3-6.0 cholesterol, serum 130 mg/dL 657-535 1463/11/14 triglyceride, serum, fasting 288 mg/dL 30-200 HDL cholesterol, serum 33 mg/dL 32-96 LDL cholesterol, serum 39 mg/dL 0-130 Lab Report: Comp. Metabolic Panel, HGBA1 C, Lipid Panel, Prothrombin Time - Chemistry sodium, serum 136 mmol/L 123-634 8389/12/02 potassium, serum 4.4 mmol/L 3.5-5.2 chloride, serum [...] 7.6 % 4.3-6.0 cholesterol, serum 117 mg/dL 337-634 2463/12/02 triglyceride, serum, fasting 226 mg/dL 30-200 HDL [...] 7.0 % 4.3-6.0 cholesterol, serum 120 mg/dL 352-408 6435/07/06 triglyceride, serum, fasting 186 mg/dL 30-200 HDL [...] 1.0-3.5 Encounters Code Encounter Date Provider Facility CPT-40716 Level 3 Est. Patient 09:37:15 CDT Mitch W L janelle DO [facility] CPT-85871 Level 3 Est. Patient 17:01:00 LUMBER STACKER OPERATOR Mitch W L janelle [facility] CPT-06607 Level 3 Est. Patient 13:53:19 LUMBER STACKER OPERATOR Mitch W L janelel [facility] CPT-12086 Level 3 Est. Patient 19:19:37 LUMBER STACKER OPERATOR Mitch W L janelle [facility] CPT-58718 Level 3 Est. Patient 13:25:53 LUMBER STACKER OPERATOR Tavo toure MD [facility] CPT-54384 Level 3 Est. Patient 18:17:28 CDT Mitch Ambrose L janelle [facility] CPT-22926 Level 3 Est. Patient 15:22:57 CDT Mitch Ambrose L janelle [facility] CPT-28209 Level 3 Est. Patient 18:21:50 CDT Mitch W L janelle [facility] CPT-81435 Level 3 Est. Patient 18:20:38 CDT Mitch W L janelle [facility] CPT-30614 Level 3 Est. Patient 15:37:55 CDT Mitch W L janelle [facility] CPT-29382 Level 2 Est. Patient 15:54:44 CDT Carmine benton MD [facility]-39855 Level 3 Est. Patient 21:46:01 LUMBER STACKER OPERATOR Mitch luis [facility] CPT-25442 Level 3 Est. Patient 22:15:50 CDT Mitch luis [facility] CPT-33792 Level 3 Est. Patient 10:48:15 CDT Mitch luis [facility] CPT-86607 Level 3 Est. Patient 23:20:57 CDT Tavo toure MD [facility] CPT-29979 Level 3 Est. Patient 16:26:13 CDT Mitch luis [facility] Procedures Code Procedure Name Date Entry Date Standard Desc ription CPT-58507 No Charge Offi Visit 21:36:07 CDT 1 CPT-67518 Venipuncture Draw Fee 10:13:28 LUMBER STACKER OPERATOR CPT-63353 Venipuncture Draw Fee 08:31:11 CDT CPT-11956 Aspir/Inject Med Joint 18:17:28 CDT CPT-78825 Venipuncture Draw Fee 10:13:30 CDT CPT-47666 Venipuncture Draw Fee 08:31:43 LUMBER STACKER OPERATOR CPT-JTINJ Joint Injection 18:34:50 CDT CPT-26087 Knee 3V 12:25:09 CDT CPT-64495 Venipuncture Draw Fee 12:15:57 CDT CPT-060 Medical Surveillance Exam 21:31:43 CDT 2011 CPT-34462 Venipuncture Draw Fee 08:32:05 LUMBER STACKER OPERATOR CPT-OV Office Visit 18:19:06 CDT
--- OUTSIDE RECORDS SUMMARY | 2020-01-18 13:00 | XMS REPORT | Clinical Summary ---
Author Author Admin, Mitch Leon Organization [facility] Address Unknown Phone Unavailable Allergies, [...] atherosclerosis of unspecified type of vessel, upper [place] or graft EDEMA 782.3 Active Mitch Urbina [...] 1 tablet by mouth daily AMLODIPINE BESYLATE 31551120856 Active Mitch Urbina DO Active MECLIZINE HCL 25 MG TAB 1 po tid 3 days, then 1/2 tab tid 3 days MECLIZINE HCL 14290829848 No Longer Active Corey SEGURA Active ALLOPURINOL 300 MG TABS Take 1 tablet by mouth daily 2 ALLOPURINOL 65335776062 No Longer Active Corey SEGURA Activ e CLONIDINE HCL 0.1 MG TABS 1 po bid 7 days, then 1/2 tab po b id 7 days CLONIDINE HCL 98211043175 No Longer Active Corey SEGURA Active COUMADIN 5 MG TABS 1 tab PO daily WARFARIN SODIUM 69178638627 Active Mitch Urbina DO Active COUMADIN 4 MG TABS 1 tablet daily WARFARIN SODI UM 24839058107 No Longer Active Corey SEGURA Active POLYTRIM 48745-1.1 UNIT/ML-% SOLN 1 drop in affected e ye every 3 hours while awake x 7 days POLYMYXIN B-TRIMETHOPRIM 39811141958 N o Longer Active Corey SEGURA Active LOSARTAN POTASSIUM-HCTZ 100-12.5 MG TABS 1 by mouth da rocky for high blood pressure LOSARTAN POTASSIUM-HCTZ 29946785951 Active Stephy Urbina DO Active LISINOPRIL-HYDROCHLOROTHIAZIDE 20-12.5 MG TABS 1 tab by mouth da rocky LISINOPRIL-HYDROCHLOROTHIAZIDE 22806133318 No Longer Active Mitch luis DO Active LISINOPRIL 20 MG TABS 1 tab po at HS LISINOPRIL 84563526046 No Longer Active Mitch Urbina DO Active COUMADIN 5 MG TABS 1 by mouth every other day WARFARIN SODIUM 77513695550 No Longer Active Mitch Urbina DO Active COUMADIN 6 MG TABS 1 by mouth every other day WARFARIN SODIUM 70147287026 No Longer Active Mitch Urbina DO Active COLCRYS 0.6 MG TABS 1 tab qid prn gout COLCHICINE 46591114385 Active Corey SEGURA Active SIMVASTATIN 40 MG TABS 1 tab daily at bedtime S IMVASTATIN 39283320507 Active Mitch Urbina DO Active SIMVASTATIN 20 MG TABS 1 tab daily at bedtime S IMVASTATIN 36277490943 No Longer Active Mitch Urbina DO Active LOVENOX 100 MG/ML SC SOLN One injection twice a day 09/15/15 ENOXAPARIN SODIUM 95855895864 No Longer Active Carmine D Joffre MD A ctive JANUVIA 50 MG TABS Take one by mouth daily DIEGO GLIPTIN PHOSPHATE 84548651887 Active Corey Arias PA Active JANUVIA 100 MG TABS 1/2 by mouth every day DIEGO GLIPTIN PHOSPHATE 04210785074 No Longer Active Bijalseth Segal RN Active METFORMIN HCL 500 MG TABS 2 by mouth twice daily METFORMIN HCL 32284537652 Active Mitch Urbina DO Active GLIMEPIRIDE 4 MG TABS 1 tab po bid GLIMEPIRIDE 541937 48159 Active Mitch Urbina DO Active COLCRYS 0.6 MG TABS 1 po q 6 hours prn gout pain 03/02 COLCHICINE 78294112637 No Longer Active Camila Reese Active LISINOPRIL 5 MG TABS 1 by mouth every day LISIN OPRIL 83497338815 No Longer Active Nguyenmolly Perez Active KLOR-CON 20 MEQ PACK Take one by mouth daily 8 POTASSIUM CHLORIDE 33953273672 No Longer Active Nguyen Perez Active FUROSEMIDE 40 MG TABS 1 by mouth daily FUROSEMI DE 06387144728 No Longer Active Nguyen Perez Active PROVIGIL 200 MG TABS 1/2 tab po q day MODAFINIL 18270 375198 Active Mitch Urbina DO Active PROVIGIL 100 MG TABS Take one by mouth daily MO DAFINIL 71445143660 No Longer Active Mitch Urbina DO Active BACTRIM DS 800-160 MG TAB 1 tab by mouth twice daily TRIMETHOPRIM-SULFAMETHOXAZOLE 23368109025 No Longer Active Renan Hays MD Active FAMOTIDINE 20 MG TABS by mouth twice a day FAMOTI DINE 66209135107 Active Mitch Urbina DO Active ADULT ASPIRIN LOW STRENGTH 81 MG TBDP 1 by mouth every daily ASPIRIN 64825079763 Active Mitch Urbina DO Active METOPROLOL TARTRATE 50 MG TABS 1 by mouth twice daily METOPROLOL TARTRATE 51936302670 Active Mitch W Carlitos DO Active BACTRIM DS 800-160 MG TAB 1 tab by mouth twice daily 2 BACTRIM DS 800-160 MG TAB TRIMETHOPRIM-SULFAMETHOXAZOLE Inac tive PROVIGIL 100 MG TABS Take one by mouth daily 4 PROVIGIL 100 MG TABS 350839 MODAFINIL Inactive FUROSEMIDE 40 MG TABS 1 by mouth daily FU ROSEMIDE 40 MG TABS 234673 FUROSEMIDE Inactive KLOR-CON 20 MEQ PACK Take one by mouth daily 8 KLOR-CON 20 MEQ PACK 706263 POTASSIUM CHLORIDE Inactive LISINOPRIL 5 MG TABS 1 by mouth every day LISINOPRIL 5 MG TABS 071737 LISINOPRIL Inactive COLCRYS 0.6 MG TABS 1 po q 6 hours prn gout pain 03/02 COLCRYS 0.6 MG TABS COLCHICINE Inactive JANUVIA 100 MG TABS 1/2 by mouth every day JANUVI A 100 MG TABS SITAGLIPTIN PHOSPHATE Inactive SIMVASTATIN 20 MG TABS 1 tab daily at bedtime SIMVASTATIN 20 MG TABS 539476 SIMVASTATIN Inactive COUMADIN 6 MG TABS 1 by mouth every other day COUMADIN 6 MG TABS 738291 WARFARIN SODIUM Inactive COUMADIN 5 MG TABS 1 by mouth every other day COUMADIN 5 MG TABS 225130 WARFARIN SODIUM Inactive LISINOPRIL 20 MG TABS 1 tab po at HS KOKI NOPRIL 20 MG TABS 060775 LISINOPRIL Inactive LISINOPRIL-HYDROCHLOROTHIAZIDE 20-12.5 MG TABS 1 tab by mouth da rocky LISINOPRIL-HYDROCHLOROTHIAZIDE 20-12.5 MG TABS 339129 LISINOPRIL-HYDROCHLOROTHIAZIDE Inactive POLYTRIM 83011-3.1 UNIT/ML-% SOLN 1 drop in affected e ye every 3 hours while awake x 7 days POLYTRIM 59357-9.1 UNIT/ML-% SOLN 23795 7 POLYMYXIN B-TRIMETHOPRIM Inactive COUMADIN 4 MG TABS 1 tablet daily COUMADIN 4 MG TABS 709937 WARFARIN SODIUM Inactive CLONIDINE HCL 0.1 MG TABS 1 po bid 7 days, then 1/2 tab po b id 7 days CLONIDINE HCL 0.1 MG TABS 582631 CLONIDINE HCL I nactive ALLOPURINOL 300 MG TABS Take 1 tablet by mouth daily 2 ALLOPURINOL 300 MG TABS 796083 ALLOPURINOL Inactive MECLIZINE HCL 25 MG TAB 1 po tid 3 days, then 1/2 tab tid 3 days MECLIZINE HCL 25 MG TAB 301232 MECLIZINE HCL Inactive LOVENOX 100 MG/ML SC SOLN One injection twice a day 09/15/15 LOVENOX 100 MG/ML SC SOLN 105047 ENOXAPARIN SODIUM Inactive Vital Signs Date Name [...] 10.3 mg/dL 2.6-7.2 sodium, serum 136 mmol/L 453-061 0938/07/25 potassium, serum 4.6 mmol/L 3.5-5.2 chloride, serum [...] Panel - Chemistry sodium, serum 137 mmol/L 039-164 7754/11/14 potassium, serum 4.4 mmol/L 3.5-5.2 chloride, serum [...] 8.0 % 4.3-6.0 cholesterol, serum 130 mg/dL 870-872 9726/11/14 triglyceride, serum, fasting 288 mg/dL 30-200 HDL cholesterol, serum 33 mg/dL 32-96 LDL cholesterol, serum 39 mg/dL 0-130 Lab Report: Comp. Metabolic Panel, HGBA1 C, Lipid Panel, Prothrombin Time - Chemistry sodium, serum 136 mmol/L 655-600 4074/12/02 potassium, serum 4.4 mmol/L 3.5-5.2 chloride, serum [...] 7.6 % 4.3-6.0 cholesterol, serum 117 mg/dL 533-101 2599/12/02 triglyceride, serum, fasting 226 mg/dL 30-200 HDL [...] 1.0-3.5 Encounters Code Encounter Date Provider Facility CPT-21252 Level 3 Est. Patient 17:01:00 LENS INSERTER Mitch luis [facility] CPT-62501 Level 3 Est. Patient 13:53:19 LENS INSERTER Mitch luis [facility] CPT-65140 Level 3 Est. Patient 19:19:37 LENS INSERTER Mitch luis [facility] CPT-85968 Level 3 Est. Patient 13:25:53 LENS INSERTER Tavo toure MD [facility] CPT-94842 Level 3 Est. Patient 18:17:28 CDT Mitch luis [facility] CPT-47963 Level 3 Est. Patient 15:22:57 CDT Mitch luis [facility] CPT-27103 Level 3 Est. Patient 18:21:50 CDT Mitch luis [facility] CPT-22185 Level 3 Est. Patient 18:20:38 CDT Mitch luis [facility] CPT-89130 Level 3 Est. Patient 15:37:55 CDT Mitch luis [facility] CPT-71519 Level 2 Est. Patient 15:54:44 CDT Carmine benton MD [facility] CPT-44834 Level 3 Est. Patient 21:46:01 LENS INSERTER Mitch luis [facility] CPT-56703 Level 3 Est. Patient 22:15:50 CDT Mitch luis [facility] CPT-01168 Level 3 Est. Patient 10:48:15 CDT Mitch luis [facility] CPT-83690 Level 3 Est. Patient 23:20:57 CDT Tavo toure MD [facility] CPT-37324 Level 3 Est. Patient 16:26:13 CDT Mitch luis [facility] Procedures Code Procedure Name Date Entry Date Standard Desc ription CPT-60535 Venipuncture Draw Fee 10:13:28 LENS INSERTER CPT-70186 Venipuncture Draw Fee 08:31:11 CDT CPT-59658 Aspir/Inject Med Joint 18:17:28 CDT CPT-47969 Venipuncture Draw Fee 10:13:30 CDT CPT-43266 Venipuncture Draw Fee 08:31:43 LENS INSERTER CPT-JTINJ Joint Injection 18:34:50 CDT CPT-86207 Knee 3V 12:25:09 CDT CPT-95869 Venipuncture Draw Fee 12:15:57 CDT CPT-060 Medical Surveillance Exam 21:31:43 CDT 2011 CPT-44912 Venipuncture Draw Fee 08:32:05 LENS INSERTER CPT-OV Office Visit 18:19:06 CDT
--- OUTSIDE RECORDS SUMMARY | 2020-01-18 13:00 | XMS REPORT | Clinical Summary ---
[...] ( 6mg total ) 2015 WARFARIN SODIUM 74349119794 Active Jannette Alcides RMA Act juan INVOKANA 100 MG ORAL TABS 1 tablet orally daily CANAGLIFLOZIN 65483263136 Active Kathie Juan RPT,RMA Active MINOXIDIL 2.5 MG TABS 1 tablet daily for high blood pressure 10/23 MINOXIDIL 39941631071 Active Mitch Urbina DO Active AMLODIPINE BESYLATE 5 MG TABS 1 tablet by mouth daily AMLODIPINE BESYLATE 68156400030 Active Domi Rivera MA Active MECLIZINE HCL 25 MG TAB 1 po tid 3 days, then 1/2 tab tid 3 days MECLIZINE HCL 65139143154 No Longer Active Corey SEGURA Active ALLOPURINOL 300 MG TABS Take 1 tablet by mouth daily 2 ALLOPURINOL 53370936120 No Longer Active Corey SEGURA Activ e CLONIDINE HCL 0.1 MG TABS 1 po bid 7 days, then 1/2 tab po b id 7 days CLONIDINE HCL 35353080861 No Longer Active Corey SEGURA Active COUMADIN 5 MG TABS 1 tab PO daily WARFARIN SODIUM 83445686783 Active Domi Rivera MA Active COUMADIN 4 MG TABS 1 tablet daily WARFARIN SODI UM 09973176227 No Longer Active Corey SEGURA Active POLYTRIM 75395-3.1 UNIT/ML-% SOLN 1 drop in affected e ye every 3 hours while awake x 7 days POLYMYXIN B-TRIMETHOPRIM 23255850614 N o Longer Active Corey SEGURA Active LOSARTAN POTASSIUM-HCTZ 100-12.5 MG TABS 1 by mouth da [place] for high blood pressure LOSARTAN POTASSIUM-HCTZ 18044112064 Active Domi Rivera MA Active LISINOPRIL-HYDROCHLOROTHIAZIDE 20-12.5 MG TABS 1 tab by mouth da rocky LISINOPRIL-HYDROCHLOROTHIAZIDE 08703885921 No Longer Active Mitch luis DO Active LISINOPRIL 20 MG TABS 1 tab po at HS LISINOPRIL 77869549098 No Longer Active Mitch Urbina DO Active COUMADIN 5 MG TABS 1 by mouth every other day WARFARIN SODIUM 98922155092 No Longer Active Mitch Urbina DO Active COUMADIN 6 MG TABS 1 by mouth every other day WARFARIN SODIUM 80352503393 No Longer Active Mitch Urbina DO Active COLCRYS 0.6 MG TABS 1 tab qid prn gout COLCHICINE 43996541241 Active Corey SEGURA Active SIMVASTATIN 40 MG TABS 1 tab daily at bedtime S IMVASTATIN 68132775812 Active Domi Rivera MA Active SIMVASTATIN 20 MG TABS 1 tab daily at bedtime S IMVASTATIN 93282258813 No Longer Active Mitch Urbina DO Active LOVENOX 100 MG/ML SC SOLN One injection twice a day 09/15/15 ENOXAPARIN SODIUM 50202616429 No Longer Active Carmine Navarrete ctive JANUVIA 50 MG TABS Take one by mouth daily DIEGO GLIPTIN PHOSPHATE 58094078595 Active Domi Rivera MA Active JANUVIA 100 MG TABS 1/2 by mouth every day DIEGO GLIPTIN PHOSPHATE 21525499076 No Longer Active Bijal Segal RN Active METFORMIN HCL 500 MG TABS 2 by mouth twice daily METFORMIN HCL 45886094806 Active Domi Rivera MA Active GLIMEPIRIDE 4 MG TABS 1 tab po bid GLIMEPIRIDE 573717 79721 Active Domi Rivera MA Active COLCRYS 0.6 MG TABS 1 po q 6 hours prn gout pain 03/02 COLCHICINE 51298540110 No Longer Active Camila Reese Active LISINOPRIL 5 MG TABS 1 by mouth every day LISIN OPRIL 18072189950 No Longer Active Nguyen Perez Active KLOR-CON 20 MEQ PACK Take one by mouth daily 8 POTASSIUM CHLORIDE 19665578028 No Longer Active Nguyen Perez Active FUROSEMIDE 40 MG TABS 1 by mouth daily FUROSEMI DE 91742165648 No Longer Active Nguyen Perez Active PROVIGIL 200 MG TABS 1/2 tab po q day MODAFINIL 63587 666518 Active Domi Rivera MA Active PROVIGIL 100 MG TABS Take one by mouth daily MO DAFINIL 46993819205 No Longer Active Mitch Urbina DO Active BACTRIM DS 800-160 MG TAB 1 tab by mouth twice daily 2 TRIMETHOPRIM-SULFAMETHOXAZOLE 29277973126 No Longer Active Renan Hays MD Active FAMOTIDINE 20 MG TABS by mouth twice a day FAMOTI DINE 93184118066 Active Mitch Urbina DO Active ADULT ASPIRIN LOW STRENGTH 81 MG TBDP 1 by mouth every daily ASPIRIN 80476277081 Active Mitch Urbina DO Active METOPROLOL TARTRATE 50 MG TABS 1 by mouth twice daily METOPROLOL TARTRATE 14338103609 Active Domi Rivera MA Active BACTRIM DS 800-160 MG TAB 1 tab by mouth twice daily 2 BACTRIM DS 800-160 MG TAB 389815 TRIMETHOPRIM-SULFAMETHOXAZOLE Inac tive PROVIGIL 100 MG TABS Take one by mouth daily 4 PROVIGIL 100 MG TABS 026107 MODAFINIL Inactive FUROSEMIDE 40 MG TABS 1 by mouth daily FU ROSEMIDE 40 MG TABS 772379 FUROSEMIDE Inactive KLOR-CON 20 MEQ PACK Take one by mouth daily 8 KLOR-CON 20 MEQ PACK 879907 POTASSIUM CHLORIDE Inactive LISINOPRIL 5 MG TABS 1 by mouth every day LISINOPRIL 5 MG TABS 095878 LISINOPRIL Inactive COLCRYS 0.6 MG TABS 1 po q 6 hours prn gout pain 03/02 COLCRYS 0.6 MG TABS 889369 COLCHICINE Inactive JANUVIA 100 MG TABS 1/2 by mouth every day JANUVI A 100 MG TABS SITAGLIPTIN PHOSPHATE Inactive SIMVASTATIN 20 MG TABS 1 tab daily at bedtime SIMVASTATIN 20 MG TABS 903877 SIMVASTATIN Inactive COUMADIN 6 MG TABS 1 by mouth every other day COUMADIN 6 MG TABS 039692 WARFARIN SODIUM Inactive COUMADIN 5 MG TABS 1 by mouth every other day COUMADIN 5 MG TABS 864706 WARFARIN SODIUM Inactive LISINOPRIL 20 MG TABS 1 tab po at HS KOKI NOPRIL 20 MG TABS 073601 LISINOPRIL Inactive LISINOPRIL-HYDROCHLOROTHIAZIDE 20-12.5 MG TABS 1 tab by mouth da rocky LISINOPRIL-HYDROCHLOROTHIAZIDE 20-12.5 MG TABS 271814 LISINOPRIL-HYDROCHLOROTHIAZIDE Inactive POLYTRIM 25802-3.1 UNIT/ML-% SOLN 1 drop in affected e ye every 3 hours while awake x 7 days POLYTRIM 52107-4.1 UNIT/ML-% SOLN 66868 7 POLYMYXIN B-TRIMETHOPRIM Inactive COUMADIN 4 MG TABS 1 tablet daily COUMADIN 4 MG TABS 996545 WARFARIN SODIUM Inactive CLONIDINE HCL 0.1 MG TABS 1 po bid 7 days, then 1/2 tab po b id 7 days CLONIDINE HCL 0.1 MG TABS 025319 CLONIDINE HCL I nactive ALLOPURINOL 300 MG TABS Take 1 tablet by mouth daily 2 ALLOPURINOL 300 MG TABS 219792 ALLOPURINOL Inactive MECLIZINE HCL 25 MG TAB 1 po tid 3 days, then 1/2 tab tid 3 days MECLIZINE HCL 25 MG TAB 501580 MECLIZINE HCL Inactive LOVENOX 100 MG/ML SC SOLN One injection twice a day 09/15/15 LOVENOX 100 MG/ML SC SOLN 213339 ENOXAPARIN SODIUM Inactive Vital Signs Date Name [...] Ag - Chemistry sodium, serum 141 mmol/L 977-031 7590/07/06 potassium, serum 4.4 mmol/L 3.5-5.2 chloride, serum [...] - Chem istry sodium, serum 136 mmol/L 356-493 9689/01/14 carbon dioxide, venous blood 25.4 mmol/L 21.0-32 [...] 7.0 % 4.3-6.0 cholesterol, serum 120 mg/dL 351-053 0756/07/06 triglyceride, serum, fasting 186 mg/dL 30-200 HDL [...] 1.0-3.5 Encounters Code Encounter Date Provider Facility CPT-60973 Level 3 Est. Patient 09:34:30 TAPE CUTTING MACHINE OPERATOR Mitch Ambrose L janelle [facility] CPT-02429 Level 3 Est. Patient 09:37:15 CDT Mitch W L janelle [facility] CPT-16009 Level 3 Est. Patient 17:01:00 TAPE CUTTING MACHINE OPERATOR Mitch W L janelle [facility] CPT-05052 Level 3 Est. Patient 13:53:19 TAPE CUTTING MACHINE OPERATOR Mitch W L janelle [facility] CPT-24121 Level 3 Est. Patient 19:19:37 TAPE CUTTING MACHINE OPERATOR Mitch W L janelle [facility] CPT-68951 Level 3 Est. Patient 13:25:53 TAPE CUTTING MACHINE OPERATOR Tavo toure MD [facility] CPT-16151 Level 3 Est. Patient 18:17:28 CDT Mitch W L janelle [facility] CPT-32990 Level 3 Est. Patient 15:22:57 CDT Mitch Arnol L janelle [facility] CPT-58433 Level 3 Est. Patient 18:21:50 CDT Mitch W L ee [facility] CPT-04525 Level 3 Est. Patient 18:20:38 CDT Mitch W L ee [facility] CPT-47875 Level 3 Est. Patient 15:37:55 CDT Mitch W L ee [facility] CPT-20030 Level 2 Est. Patient 15:54:44 CDT Carmine benton MD [facility] CPT-78648 Level 3 Est. Patient 21:46:01 TAPE CUTTING MACHINE OPERATOR Mitch W L ee [facility] CPT-83541 Level 3 Est. Patient 22:15:50 CDT Mitch luis [facility] CPT-91453 Level 3 Est. Patient 10:48:15 CDT Mitch luis [facility] CPT-09380 Level 3 Est. Patient 23:20:57 CDT Tavo toure MD [facility] CPT-53868 Level 3 Est. Patient 16:26:13 CDT Mitch luis [facility] Procedures Code Procedure Name Date Entry Date Standard Desc ription CPT-12074 Venipuncture Draw Fee 08:32:21 TAPE CUTTING MACHINE OPERATOR CPT-32060 Venipuncture Draw Fee 09:38:56 TAPE CUTTING MACHINE OPERATOR CPT-89939 No Charge Offi Visit 21:36:07 CDT 1 CPT-20346 Venipuncture Draw Fee 10:13:28 TAPE CUTTING MACHINE OPERATOR CPT-34279 Venipuncture Draw Fee 08:31:11 CDT CPT-02714 Aspir/Inject Med Joint 18:17:28 CDT CPT-73917 Venipuncture Draw Fee 10:13:30 CDT CPT-24632 Venipuncture Draw Fee 08:31:43 TAPE CUTTING MACHINE OPERATOR CPT-JTINJ Joint Injection 18:34:50 CDT CPT-19639 Knee 3V 12:25:09 CDT CPT-74157 Venipuncture Draw Fee 12:15:57 CDT CPT-060 Medical Surveillance Exam 21:31:43 CDT 2011 CPT-49443 Venipuncture Draw Fee 08:32:05 TAPE CUTTING MACHINE OPERATOR CPT-OV Office Visit 18:19:06 CDT
--- OUTSIDE RECORDS SUMMARY | 2020-01-18 13:00 | XMS REPORT | Clinical Summary ---
Author Author Admin, Mitch Leon Organization [facility] J[place] Address Unknown Phone Unavailable Allergies, Adverse Reactions, [...] Coronary atherosclerosis of unspecified type of vessel, [place] or graft EDEMA 782.3 Resolved Mitch Urbina [...] ORAL TABLET 1 po BID GLIMEPIRID E 19790613099 Active Renee Oconnor LPN Active KEFLEX 500 MG ORAL CAPSULE 1 po qid CEPHALEXI N 57114352240 No Longer Active Mitch Urbina DO Active LOSARTAN POTASSIUM 100 MG ORAL TABLET 1 pill by mouth daily, for blood pressure LOSARTAN POTASSIUM 80624063616 Active Ana Wallace Active AMLODIPINE BESYLATE 5 MG ORAL TABLET 1 tablet by mouth daily 201 01/20/04 AMLODIPINE BESYLATE 08420762370 No Longer Active Joe fulton APRN Active MITIGARE 0.6 MG ORAL CAPSULE 2 capsules at onset of go ut pain, then take one capsule at 1 hour if symptoms persist. COLCHICINE 59 145787957 Active Mitch Urbina DO Active COUMADIN 1 MG ORAL TABLET 2 tabs orally daily with the 5mg tab to equal 7mg daily WARFARIN SODIUM 36909664240 Active Ana Wallace Active COLCRYS 0.6 MG ORAL TABLET 1 tab qid prn gout C OLCHICINE 78160522332 Active Norma Cazares Active INVOKANA 100 MG ORAL TABLET 1 tablet orally daily CANAGLIFLOZIN 26177431957 Active Mitch Urbina DO Active MINOXIDIL 2.5 MG ORAL TABLET 1 tablet daily for high blood press ure MINOXIDIL 38520592060 Active Mitch Urbina DO Active MECLIZINE HCL 25 MG ORAL TABLET 1 po tid 3 days, then 1/2 ta b tid 3 days MECLIZINE HCL 77827899200 No Longer Active Corey SEGURA Active ALLOPURINOL 300 MG ORAL TABLET Take 1 tablet by mouth daily 2012 ALLOPURINOL 08231471128 No Longer Active Corey SEGURA Active CLONIDINE HCL 0.1 MG ORAL TABLET 1 po bid 7 days, then 1/2 t ab po bid 7 days CLONIDINE HCL 91097060614 No Longer Active Corey SEGURA Active COUMADIN 5 MG ORAL TABLET 1 tab PO daily WARFAR IN SODIUM 54557247506 Active Mitch Urbina DO Active COUMADIN 4 MG ORAL TABLET 1 tablet daily WARFAR IN SODIUM 28466521812 No Longer Active Corey SEGURA Active POLYTRIM 75501-0.1 UNIT/ML-% OPHTHALMIC SOLUTION 1 rui p in affected eye every 3 hours while awake x 7 days POLYMYXIN B-TRIMETHOP RIM 01335221576 No Longer Active Corey SEGURA Active LOSARTAN POTASSIUM-HCTZ 100-12.5 MG ORAL TABLET 1 by m outh daily for high blood pressure LOSARTAN POTASSIUM-HCTZ 73401571670 No Longer A ctive Mitch Urbina DO Active LISINOPRIL-HYDROCHLOROTHIAZIDE 20-12.5 MG ORAL TABLET 1 tab by m outh daily LISINOPRIL-HYDROCHLOROTHIAZIDE 58037449673 No Longer Active Mitch Urbina DO Active LISINOPRIL 20 MG ORAL TABLET 1 tab po at HS LIS INOPRIL 29038218118 No Longer Active Mitch Urbina DO Active COUMADIN 5 MG ORAL TABLET 1 by mouth every other day 2 WARFARIN SODIUM 65218005268 No Longer Active Mitch Urbina DO Active COUMADIN 6 MG ORAL TABLET 1 by mouth every other day 2 WARFARIN SODIUM 86695851024 No Longer Active Mitch Urbina DO Active SIMVASTATIN 40 MG ORAL TABLET 1 tab daily at bedtime SIMVASTATIN 81380932956 Active Mitch Urbina DO Active SIMVASTATIN 20 MG ORAL TABLET 1 tab daily at bedtime 2 SIMVASTATIN 55623884169 No Longer Active Mitch Urbina DO Active LOVENOX 100 MG/ML SUBCUTANEOUS SOLUTION One injection twice a da y ENOXAPARIN SODIUM 99145505338 No Longer Active Carmine Yusuf MD Active JANUVIA 50 MG ORAL TABLET Take one by mouth daily SITAGLIPTIN PHOSPHATE 15441819696 Active Mitch Urbina DO Active JANUVIA 100 MG ORAL TABLET 1/2 by mouth every day 2011 SITAGLIPTIN PHOSPHATE 60093952343 No Longer Active Bijal Segal RN Acti ve METFORMIN HCL 500 MG ORAL TABLET 2 by mouth twice daily METFORMIN HCL 47744659767 Active Mitch Urbina DO Active COLCRYS 0.6 MG ORAL TABLET 1 po q 6 hours prn gout pain COLCHICINE 71945714363 No Longer Active Camila Reese Active LISINOPRIL 5 MG ORAL TABLET 1 by mouth every day 11/17 LISINOPRIL 97378035750 No Longer Active Nguyen Coekman Active KLOR-CON 20 MEQ ORAL PACKET Take one by mouth daily 09/10/08 POTASSIUM CHLORIDE 05006319511 No Longer Active Nguyen Coekman Active FUROSEMIDE 40 MG ORAL TABLET 1 by mouth daily F UROSEMIDE 97352730225 No Longer Active Nguyen Coekman Active PROVIGIL 200 MG ORAL TABLET 1/2 tab po q day MODA FINIL 92154002669 Active 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 PROVIGIL 100 MG ORAL TABLET Take one by mouth daily 08/20/04 MODAFINIL 42700688526 No Longer Active Mitch Urbina DO Active BACTRIM DS 800-160 MG ORAL TABLET 1 tab by mouth twice daily 201 10/19/09 TRIMETHOPRIM-SULFAMETHOXAZOLE 94464307164 No Longer Active Elian Hays MD Active FAMOTIDINE 20 MG ORAL TABLET by mouth twice a day FAMOTIDINE 37009090369 Active Mitch Urbina DO Active ADULT ASPIRIN LOW STRENGTH 81 MG ORAL TABLET DISINTEGR ATING 1 by mouth every daily ASPIRIN 50521375598 Active Mitch Urbina DO Ac tive METOPROLOL TARTRATE 50 MG ORAL TABLET 1 by mouth twice daily METOPROLOL TARTRATE 11562409026 Active Mitch Urbina DO Active BACTRIM DS 800-160 MG ORAL TABLET 1 tab by mouth twice daily 201 10/19/09 BACTRIM DS 800-160 MG ORAL TABLET 091321 TRIMETHOPRIM-SULFAMETHOXAZOLE Inactive PROVIGIL 100 MG ORAL TABLET Take one by mouth daily 08/20/04 PROVIGIL 100 MG ORAL TABLET 960902 MODAFINIL Inactive FUROSEMIDE 40 MG ORAL TABLET 1 by mouth daily FUROSEMIDE 40 MG ORAL TABLET 866368 FUROSEMIDE Inactive KLOR-CON 20 MEQ ORAL PACKET Take one by mouth daily 09/10/08 KLOR- CON 20 MEQ ORAL PACKET 4169660 POTASSIUM CHLORIDE Inactive LISINOPRIL 5 MG ORAL TABLET 1 by mouth every day 11/17 LISINOPRIL 5 MG ORAL TABLET 793882 LISINOPRIL Inactive COLCRYS 0.6 MG ORAL TABLET 1 po q 6 hours prn gout pain COLCRYS 0.6 MG ORAL TABLET 596811 COLCHICINE Inactive JANUVIA 100 MG ORAL TABLET 1/2 by mouth every day 2011 JANUVIA 100 MG ORAL TABLET SITAGLIPTIN PHOSPHATE Inactive SIMVASTATIN 20 MG ORAL TABLET 1 tab daily at bedtime 2 SIMVASTATIN 20 MG ORAL TABLET 231761 SIMVASTATIN Inactive COUMADIN 6 MG ORAL TABLET 1 by mouth every other day 2 COUMADIN 6 MG ORAL TABLET 835999 WARFARIN SODIUM Inactive COUMADIN 5 MG ORAL TABLET 1 by mouth every other day 2 COUMADIN 5 MG ORAL TABLET 681925 WARFARIN SODIUM Inactive LISINOPRIL 20 MG ORAL TABLET 1 tab po at HS LISINOPRIL 20 MG ORAL TABLET 409573 LISINOPRIL Inactive LISINOPRIL-HYDROCHLOROTHIAZIDE 20-12.5 MG ORAL TABLET 1 tab by m outh daily LISINOPRIL-HYDROCHLOROTHIAZIDE 20-12.5 MG ORAL TABLET 456431 LISINOPRIL-HYDROCHLOROTHIAZIDE Inactive POLYTRIM 25878-1.1 UNIT/ML-% OPHTHALMIC SOLUTION 1 rui p in affected eye every 3 hours while awake x 7 days POLYTRIM 1000 0-0.1 UNIT/ML-% OPHTHALMIC SOLUTION 453511 POLYMYXIN B-TRIMETHOPRIM Inactive COUMADIN 4 MG ORAL TABLET 1 tablet daily COUMADIN 4 MG ORAL TABLET 134069 WARFARIN SODIUM Inactive CLONIDINE HCL 0.1 MG ORAL TABLET 1 po bid 7 days, then 1/2 t ab po bid 7 days CLONIDINE HCL 0.1 MG ORAL TABLET 272358 CLONIDIN E HCL Inactive ALLOPURINOL 300 MG ORAL TABLET Take 1 tablet by mouth daily 2012 ALLOPURINOL 300 MG ORAL TABLET 817039 ALLOPURINOL I nactive MECLIZINE HCL 25 MG ORAL TABLET 1 po tid 3 days, then 1/2 ta b tid 3 days MECLIZINE HCL 25 MG ORAL TABLET 570728 MECLIZINE HCL Inactive AMLODIPINE BESYLATE 5 MG ORAL TABLET 1 tablet by mouth daily 201 01/20/04 AMLODIPINE BESYLATE 5 MG ORAL TABLET 746019 AMLODIPINE BESYLATE Inactive KEFLEX 500 MG ORAL CAPSULE 1 po qid K EFLEX 500 MG ORAL CAPSULE 410461 CEPHALEXIN Inactive LOVENOX 100 MG/ML SUBCUTANEOUS SOLUTION One injection twice a da y LOVENOX 100 MG/ML SUBCUTANEOUS SOLUTION 804367 ENOXAPAR IN SODIUM Inactive Vital Signs Date [...] - Chem istry sodium, serum 139 mmol/L 122-069 2337/07/17 potassium, serum 4.2 mmol/L 3.5-5.2 chloride, serum 102 mmol/L 98-107 carbon dioxide, venous blood 28.9 mmol/L 21.0-32 .0 blood glucose 211 mg/dL 65-110 calcium, serum 10.6 mg/dL 8.5-10.1 urea nitrogen, blood 29 mg/dL 7-18 creatinine, serum 1.24 mg/dL 0.60-1.30 sodium, serum 141 mmol/L 000-154 4804/08/07 potassium, serum 4.5 mmol/L 3.5-5.2 chloride, serum [...] ... - Chemistry sodium, serum 144 mmol/L 439-565 3058/06/12 carbon dioxide, venous blood 26.6 mmol/L 21.0-32 [...] HGBA1C - Chemistry cholesterol, serum 136 mg/dL 415-876 9899/12/06 triglyceride, serum, fasting 247 mg/dL 30-200 HDL cholesterol, serum 41 mg/dL 32-60 LDL cholesterol, serum 46 mg/dL 0-130 aspartate aminotransferase (SGOT), serum 22 U/L 15-37 alanine aminotransferase (SGPT), serum 30 U/L 12-78 bilirubin, serum, total 0.80 mg/dL 0.00-1.00 hemoglobin A1C, blood, as % of total hemoglobin 6.4 % 4.3-6.0 Encounters Code Encounter Date Provider Facility CPT-91184 Level 3 Est. Patient 18:25:53 CDT Mitch luis [facility] CPT-56353 Level 3 Est. Patient 19:43:34 CDT Mitch luis [facility] CPT-37826 Level 4 Est. Patient 09:30:18 CDT Mitch luis [facility] CPT-54877 Level 3 Est. Patient 15:10:14 CDT Joe kamara [facility] CPT-93527 Level 3 Est. Patient 15:03:46 CDT Joe kamara [facility] CPT-45388 Level 3 Est. Patient 14:21:06 CDT Mitch luis [facility] CPT-53114 Level 3 Est. Patient 14:52:06 CDT Joe kamara [facility] CPT-29923 Level 3 Est. Patient 09:34:30 WARDROBE SUPERVISOR Mitch luis [facility] CPT-48661 Level 3 Est. Patient 09:37:15 CDT Mitch luis [facility] CPT-31969 Level 3 Est. Patient 17:01:00 WARDROBE SUPERVISOR Mitch luis [facility] CPT-48578 Level 3 Est. Patient 13:53:19 WARDROBE SUPERVISOR Mitch luis [facility] CPT-25464 Level 3 Est. Patient 19:19:37 WARDROBE SUPERVISOR Mitch luis [facility] CPT-29155 Level 3 Est. Patient 13:25:53 WARDROBE SUPERVISOR Tavo toure MD [facility] CPT-12198 Level 3 Est. Patient 18:17:28 CDT Mitch luis [facility] CPT-65301 Level 3 Est. Patient 15:22:57 CDT Mitch luis [facility] CPT-67402 Level 3 Est. Patient 18:21:50 CDT Mitch luis [facility] CPT-91670 Level 3 Est. Patient 18:20:38 CDT Mitch luis [facility] CPT-10791 Level 3 Est. Patient 15:37:55 CDT Mitch luis [facility] CPT-24980 Level 2 Est. Patient 15:54:44 CDT Carmine benton MD [facility] CPT-06958 Level 3 Est. Patient 21:46:01 WARDROBE SUPERVISOR Mitch luis [facility] CPT-44715 Level 3 Est. Patient 22:15:50 CDT Mitch luis [facility] CPT-45733 Level 3 Est. Patient 10:48:15 CDT Mitch luis [facility] CPT-77644 Level 3 Est. Patient 23:20:57 CDT Tavo toure MD [facility] CPT-36893 Level 3 Est. Patient 16:26:13 CDT Mitch Arnol Nona janelle [facility] Procedures Code Procedure Name Date Entry Date Standard Desc ription CPT-51631 Venipuncture Draw Fee 09:26:17 CDT CPT-60336 PT/INR - LAB USE ONLY 13:32:49 WARDROBE SUPERVISOR CPT-93445 Venipuncture Draw Fee 13:32:49 WARDROBE SUPERVISOR CPT-75918 PT/INR - LAB USE ONLY 10:34:49 WARDROBE SUPERVISOR CPT-65241 Venipuncture Draw Fee 10:34:48 WARDROBE SUPERVISOR CPT-72094 PT/INR - LAB USE ONLY 09:22:03 WARDROBE SUPERVISOR CPT-69525 Venipuncture Draw Fee 09:22:02 WARDROBE SUPERVISOR CPT-86855 Hemoccult IFOBT - LAB USE ONLY 10:27:22 CDT CPT-17369 Venipuncture Draw Fee 08:27:08 CDT CPT-16258 Liver Profile - LAB USE ONLY 08:27:07 CDT 2 CPT-46306 Microalbumin - LAB USE ONLY 08:27:07 CDT 20 25/05/09 CPT-94479 PT/INR - LAB USE ONLY 08:27:07 CDT CPT-05275 HGBA1C - LAB USE ONLY 08:27:07 CDT CPT-02936 CBC - LAB USE ONLY 08:27:07 CDT CPT-01086 Venipuncture Draw Fee 11:09:14 CDT CPT-36211 Venipuncture Draw Fee 08:32:21 WARDROBE SUPERVISOR CPT-56254 Venipuncture Draw Fee 09:38:56 WARDROBE SUPERVISOR CPT-47630 No Charge Offi Visit 21:36:07 CDT 1 CPT-95955 Venipuncture Draw Fee 10:13:28 WARDROBE SUPERVISOR CPT-97920 Venipuncture Draw Fee 08:31:11 CDT CPT-60873 Aspir/Inject Med Joint 18:17:28 CDT CPT-11248 Venipuncture Draw Fee 10:13:30 CDT CPT-31824 Venipuncture Draw Fee 08:31:43 WARDROBE SUPERVISOR CPT-JTINJ Joint Injection 18:34:50 CDT CPT-24284 Knee 3V 12:25:09 CDT CPT-61307 Venipuncture Draw Fee 12:15:57 CDT CPT-060 Medical Surveillance Exam 21:31:43 CDT 2011 CPT-03202 Venipuncture Draw Fee 08:32:05 WARDROBE SUPERVISOR CPT-OV Office Visit 18:19:06 CDT
--- OUTSIDE RECORDS SUMMARY | 2020-01-18 13:01 | XMS REPORT | Clinical Summary ---
[...] and abscess of trunk SEROMA 998.13 Resolved Mithc Urbina DO Se mario complicating a procedure [...] Coronary atherosclerosis of unspecified type of vessel, [place] or graft EDEMA 782.3 Resolved Mitch [...] ( 6mg total ) 2015 WARFARIN SODIUM 13925712167 Active Jannette Alcides RMA Act juan INVOKANA 100 MG ORAL TABS 1 tablet orally daily CANAGLIFLOZIN 37952384467 Active Kathie Juan RPT,RMA Active MINOXIDIL 2.5 MG TABS 1 tablet daily for high blood pressure 10/23 MINOXIDIL 75023313677 Active Mitch Urbina DO Active AMLODIPINE BESYLATE 5 MG TABS 1 tablet by mouth daily AMLODIPINE BESYLATE 28309857238 Active Domi Rivera MA Active MECLIZINE HCL 25 MG TAB 1 po tid 3 days, then 1/2 tab tid 3 days MECLIZINE HCL 60105949342 No Longer Active Corey SEGURA Active ALLOPURINOL 300 MG TABS Take 1 tablet by mouth daily 2 ALLOPURINOL 56145459904 No Longer Active Corey SEGURA Activ e CLONIDINE HCL 0.1 MG TABS 1 po bid 7 days, then 1/2 tab po b id 7 days CLONIDINE HCL 28028610545 No Longer Active Corey SEGURA Active COUMADIN 5 MG TABS 1 tab PO daily WARFARIN SODIUM 16070287715 Active Domi Rivera MA Active COUMADIN 4 MG TABS 1 tablet daily WARFARIN SODI UM 52398868120 No Longer Active Corey SEGURA Active POLYTRIM 68992-3.1 UNIT/ML-% SOLN 1 drop in affected e ye every 3 hours while awake x 7 days POLYMYXIN B-TRIMETHOPRIM 91215265963 N o Longer Active Corey SEGURA Active LOSARTAN POTASSIUM-HCTZ 100-12.5 MG TABS 1 by mouth da [place] for high blood pressure LOSARTAN POTASSIUM-HCTZ 65850847736 Active Domi Rivera MA Active LISINOPRIL-HYDROCHLOROTHIAZIDE 20-12.5 MG TABS 1 tab by mouth da rocky LISINOPRIL-HYDROCHLOROTHIAZIDE 96720395720 No Longer Active Mitch luis DO Active LISINOPRIL 20 MG TABS 1 tab po at HS LISINOPRIL 73624480755 No Longer Active Mitch Urbina DO Active COUMADIN 5 MG TABS 1 by mouth every other day WARFARIN SODIUM 92123112666 No Longer Active Mitch Urbina DO Active COUMADIN 6 MG TABS 1 by mouth every other day WARFARIN SODIUM 61516220655 No Longer Active Mitch Urbina DO Active COLCRYS 0.6 MG TABS 1 tab qid prn gout COLCHICINE 86682070626 Active Corey SEGURA Active SIMVASTATIN 40 MG TABS 1 tab daily at bedtime S IMVASTATIN 15718624541 Active Domi Rivera MA Active SIMVASTATIN 20 MG TABS 1 tab daily at bedtime S IMVASTATIN 49158770786 No Longer Active Mitch Urbina DO Active LOVENOX 100 MG/ML SC SOLN One injection twice a day 09/15/15 ENOXAPARIN SODIUM 80471805003 No Longer Active Carmine Navarrete ctive JANUVIA 50 MG TABS Take one by mouth daily DIEGO GLIPTIN PHOSPHATE 20323001067 Active Domi Rivera MA Active JANUVIA 100 MG TABS 1/2 by mouth every day DIEGO GLIPTIN PHOSPHATE 17860024449 No Longer Active Bijal Segal RN Active METFORMIN HCL 500 MG TABS 2 by mouth twice daily METFORMIN HCL 94524529302 Active Domi Rivera MA Active GLIMEPIRIDE 4 MG TABS 1 tab po bid GLIMEPIRIDE 815857 99071 Active Domi Rivera MA Active COLCRYS 0.6 MG TABS 1 po q 6 hours prn gout pain 03/02 COLCHICINE 89044139997 No Longer Active Camila Reese Active LISINOPRIL 5 MG TABS 1 by mouth every day LISIN OPRIL 04344138388 No Longer Active Nguyen Perez Active KLOR-CON 20 MEQ PACK Take one by mouth daily 8 POTASSIUM CHLORIDE 78118945663 No Longer Active Nguyen Perez Active FUROSEMIDE 40 MG TABS 1 by mouth daily FUROSEMI DE 37325536330 No Longer Active Nguyenmolly Perez Active PROVIGIL 200 MG TABS 1/2 tab po q day MODAFINIL 54232 516993 Active Domi Rivera MA Active PROVIGIL 100 MG TABS Take one by mouth daily MO DAFINIL 83443477253 No Longer Active Mitch Urbina DO Active BACTRIM DS 800-160 MG TAB 1 tab by mouth twice daily 2 TRIMETHOPRIM-SULFAMETHOXAZOLE 53981315668 No Longer Active Renan Hays MD Active FAMOTIDINE 20 MG TABS by mouth twice a day FAMOTI DINE 84491374569 Active Mitch Urbina DO Active ADULT ASPIRIN LOW STRENGTH 81 MG TBDP 1 by mouth every daily ASPIRIN 80026615752 Active Mitch Urbina DO Active METOPROLOL TARTRATE 50 MG TABS 1 by mouth twice daily METOPROLOL TARTRATE 90821456666 Active Domi Rivera MA Active BACTRIM DS 800-160 MG TAB 1 tab by mouth twice daily 2 BACTRIM DS 800-160 MG TAB 022375 TRIMETHOPRIM-SULFAMETHOXAZOLE Inac tive PROVIGIL 100 MG TABS Take one by mouth daily 4 PROVIGIL 100 MG TABS 522552 MODAFINIL Inactive FUROSEMIDE 40 MG TABS 1 by mouth daily FU ROSEMIDE 40 MG TABS 314074 FUROSEMIDE Inactive KLOR-CON 20 MEQ PACK Take one by mouth daily 8 KLOR-CON 20 MEQ PACK 487672 POTASSIUM CHLORIDE Inactive LISINOPRIL 5 MG TABS 1 by mouth every day LISINOPRIL 5 MG TABS 500712 LISINOPRIL Inactive COLCRYS 0.6 MG TABS 1 po q 6 hours prn gout pain 03/02 COLCRYS 0.6 MG TABS 855190 COLCHICINE Inactive JANUVIA 100 MG TABS 1/2 by mouth every day JANUVI A 100 MG TABS SITAGLIPTIN PHOSPHATE Inactive SIMVASTATIN 20 MG TABS 1 tab daily at bedtime SIMVASTATIN 20 MG TABS 378713 SIMVASTATIN Inactive COUMADIN 6 MG TABS 1 by mouth every other day COUMADIN 6 MG TABS 101788 WARFARIN SODIUM Inactive COUMADIN 5 MG TABS 1 by mouth every other day COUMADIN 5 MG TABS 369449 WARFARIN SODIUM Inactive LISINOPRIL 20 MG TABS 1 tab po at HS KOKI NOPRIL 20 MG TABS 331907 LISINOPRIL Inactive LISINOPRIL-HYDROCHLOROTHIAZIDE 20-12.5 MG TABS 1 tab by mouth da rocky LISINOPRIL-HYDROCHLOROTHIAZIDE 20-12.5 MG TABS 404928 LISINOPRIL-HYDROCHLOROTHIAZIDE Inactive POLYTRIM 93964-0.1 UNIT/ML-% SOLN 1 drop in affected e ye every 3 hours while awake x 7 days POLYTRIM 40426-9.1 UNIT/ML-% SOLN 41771 7 POLYMYXIN B-TRIMETHOPRIM Inactive COUMADIN 4 MG TABS 1 tablet daily COUMADIN 4 MG TABS 549221 WARFARIN SODIUM Inactive CLONIDINE HCL 0.1 MG TABS 1 po bid 7 days, then 1/2 tab po b id 7 days CLONIDINE HCL 0.1 MG TABS 502850 CLONIDINE HCL I nactive ALLOPURINOL 300 MG TABS Take 1 tablet by mouth daily 2 ALLOPURINOL 300 MG TABS 081154 ALLOPURINOL Inactive MECLIZINE HCL 25 MG TAB 1 po tid 3 days, then 1/2 tab tid 3 days MECLIZINE HCL 25 MG TAB 509511 MECLIZINE HCL Inactive LOVENOX 100 MG/ML SC SOLN One injection twice a day 20 09/15/15 LOVENOX 100 MG/ML SC SOLN 902701 ENOXAPARIN SODIUM Inactive Vital Signs Date Name [...] Range Description Chart Maintenance: Hemoccult added to [facility] - Chemistry occult blood, stool (E&M) [...] Ag - Chemistry sodium, serum 141 mmol/L 987-002 8838/07/06 potassium, serum 4.4 mmol/L 3.5-5.2 chloride, serum [...] - Chem istry sodium, serum 136 mmol/L 945-631 0146/01/14 carbon dioxide, venous blood 25.4 mmol/L 21.0-32 [...] 7.0 % 4.3-6.0 cholesterol, serum 120 mg/dL 598-707 4253/07/06 triglyceride, serum, fasting 186 mg/dL 30-200 HDL [...] 1.0-3.5 Encounters Code Encounter Date Provider Facility CPT-91799 Level 3 Est. Patient 09:34:30 GREY PERCHER Mitch luis [facility] CPT-72163 Level 3 Est. Patient 09:37:15 CDT Mitch luis [facility] CPT-78710 Level 3 Est. Patient 17:01:00 GREY PERCHER Mitch luis [facility] CPT-60321 Level 3 Est. Patient 13:53:19 GREY PERCHER Mitch luis [facility] CPT-54843 Level 3 Est. Patient 19:19:37 GREY PERCHER Mitch luis [facility] CPT-01227 Level 3 Est. Patient 13:25:53 GREY PERCHER Tavo toure MD [facility]-37166 Level 3 Est. Patient 18:17:28 CDT Mitch luis [facility] CPT-43712 Level 3 Est. Patient 15:22:57 CDT Mitch luis [facility] CPT-87076 Level 3 Est. Patient 18:21:50 CDT Mitch luis [facility] CPT-40787 Level 3 Est. Patient 18:20:38 CDT Mitch luis [facility] CPT-20144 Level 3 Est. Patient 15:37:55 CDT Mitch luis [facility] CPT-93343 Level 2 Est. Patient 15:54:44 CDT Carmine benton MD [facility]-11948 Level 3 Est. Patient 21:46:01 GREY PERCHER Mitch luis [facility] CPT-58939 Level 3 Est. Patient 22:15:50 CDT Mitch Arnol L janelle [facility] CPT-74534 Level 3 Est. Patient 10:48:15 CDT Mitch luis [facility] CPT-27360 Level 3 Est. Patient 23:20:57 CDT Tavo toure MD [facility] CPT-74498 Level 3 Est. Patient 16:26:13 CDT Mitch luis [facility] Procedures Code Procedure Name Date Entry Date Standard Desc ription CPT-43388 Venipuncture Draw Fee 08:32:21 GREY PERCHER CPT-72254 Venipuncture Draw Fee 09:38:56 GREY PERCHER CPT-42403 No Charge Offi Visit 21:36:07 CDT 1 CPT-48276 Venipuncture Draw Fee 10:13:28 GREY PERCHER CPT-39572 Venipuncture Draw Fee 08:31:11 CDT CPT-35763 Aspir/Inject Med Joint 18:17:28 CDT CPT-59701 Venipuncture Draw Fee 10:13:30 CDT CPT-95930 Venipuncture Draw Fee 08:31:43 GREY PERCHER CPT-JTINJ Joint Injection 18:34:50 CDT CPT-17197 Knee 3V 12:25:09 CDT CPT-08608 Venipuncture Draw Fee 12:15:57 CDT CPT-060 Medical Surveillance Exam 21:31:43 CDT 2011 CPT-50050 Venipuncture Draw Fee 08:32:05 GREY PERCHER CPT-OV Office Visit 18:19:06 CDT
--- OUTSIDE RECORDS SUMMARY | 2020-01-18 13:01 | XMS REPORT | Clinical Summary ---
Author Author Admin, Mitch Leon Organization [facility] [employer] Address Unknown Phone Unavailable Allergies, Adverse Reactions, [...] Coronary atherosclerosis of unspecified type of vessel, [place] or graft EDEMA 782.3 Resolved Mitch Urbina [...] tab to equal 7mg daily WARFARIN SODIUM 94102462538 Active Kathie Juan RPT,R MA Active COLCRYS 0.6 MG TABS 1 tab qid prn gout COLCHICINE 29157048724 Active Kathie Juan RPT,RMA Active INVOKANA 100 MG ORAL TABS 1 tablet orally daily CANAGLIFLOZIN 66701384160 Active Kathie Juan RPT,RMA Active MINOXIDIL 2.5 MG TABS 1 tablet daily for high blood pressure 10/23 MINOXIDIL 63650107029 Active Mitch Arnol Carlitos DO Active AMLODIPINE BESYLATE 5 MG TABS 1 tablet by mouth daily AMLODIPINE BESYLATE 87755171984 Active Domi Rivera MA Active MECLIZINE HCL 25 MG TAB 1 po tid 3 days, then 1/2 tab tid 3 days MECLIZINE HCL 68640493711 No Longer Active Corey SEGURA Active ALLOPURINOL 300 MG TABS Take 1 tablet by mouth daily 2 ALLOPURINOL 34892357443 No Longer Active Corey SEGURA Activ e CLONIDINE HCL 0.1 MG TABS 1 po bid 7 days, then 1/2 tab po b id 7 days CLONIDINE HCL 63993667907 No Longer Active Corey SEGURA Active COUMADIN 5 MG TABS 1 tab PO daily WARFARIN SODIUM 93611888524 Active Domi Rivera MA Active COUMADIN 4 MG TABS 1 tablet daily WARFARIN SODI UM 93638105571 No Longer Active Corey SEGURA Active POLYTRIM 65655-6.1 UNIT/ML-% SOLN 1 drop in affected e ye every 3 hours while awake x 7 days POLYMYXIN B-TRIMETHOPRIM 50985645678 N o Longer Active Corey SEGURA Active LOSARTAN POTASSIUM-HCTZ 100-12.5 MG TABS 1 by mouth da rocky for high blood pressure LOSARTAN POTASSIUM-HCTZ 03777102318 Active Domi Rivera MA Active LISINOPRIL-HYDROCHLOROTHIAZIDE 20-12.5 MG TABS 1 tab by mouth da rocky LISINOPRIL-HYDROCHLOROTHIAZIDE 14611779200 No Longer Active Mitch luis DO Active LISINOPRIL 20 MG TABS 1 tab po at HS LISINOPRIL 38912109061 No Longer Active Mitch Urbina DO Active COUMADIN 5 MG TABS 1 by mouth every other day WARFARIN SODIUM 24379778117 No Longer Active Mitch Urbina DO Active COUMADIN 6 MG TABS 1 by mouth every other day WARFARIN SODIUM 82306906066 No Longer Active Mitch Urbina DO Active SIMVASTATIN 40 MG TABS 1 tab daily at bedtime S IMVASTATIN 94835732894 Active Domi Rivera MA Active SIMVASTATIN 20 MG TABS 1 tab daily at bedtime S IMVASTATIN 27646551815 No Longer Active Mitch Urbina DO Active LOVENOX 100 MG/ML SC SOLN One injection twice a day 09/15/15 ENOXAPARIN SODIUM 01241207143 No Longer Active Carmine Yusuf MD A ctive JANUVIA 50 MG TABS Take one by mouth daily DIEGO GLIPTIN PHOSPHATE 99634011776 Active Tavo Hilton MD Active JANUVIA 100 MG TABS 1/2 by mouth every day DIEGO GLIPTIN PHOSPHATE 58142709384 No Longer Active Bijal Segal RN Active METFORMIN HCL 500 MG TABS 2 by mouth twice daily METFORMIN HCL 28723315744 Active Mitch Urbina DO Active GLIMEPIRIDE 4 MG TABS 1 tab po bid GLIMEPIRIDE 198619 97491 Active Mitch Urbina DO Active COLCRYS 0.6 MG TABS 1 po q 6 hours prn gout pain 03/02 COLCHICINE 36193613147 No Longer Active Camila Reese Active LISINOPRIL 5 MG TABS 1 by mouth every day LISIN OPRIL 31250401766 No Longer Active Nguyen Perez Active KLOR-CON 20 MEQ PACK Take one by mouth daily 8 POTASSIUM CHLORIDE 55068295988 No Longer Active Nguyen Perez Active FUROSEMIDE 40 MG TABS 1 by mouth daily FUROSEMI DE 41946132637 No Longer Active Nguyen Perez Active PROVIGIL 200 MG TABS 1/2 tab po q day MODAFINIL 07044 011954 Active Curly Coker MD Active PROVIGIL 100 MG TABS Take one by mouth daily MO DAFINIL 85686827415 No Longer Active Mitch Urbina DO Active BACTRIM DS 800-160 MG TAB 1 tab by mouth twice daily 2 TRIMETHOPRIM-SULFAMETHOXAZOLE 35994889853 No Longer Active Renan Hays MD Active FAMOTIDINE 20 MG TABS by mouth twice a day FAMOTI DINE 46381448773 Active Mitch Urbina DO Active ADULT ASPIRIN LOW STRENGTH 81 MG TBDP 1 by mouth every daily ASPIRIN 53325007384 Active Mitch Urbina DO Active METOPROLOL TARTRATE 50 MG TABS 1 by mouth twice daily METOPROLOL TARTRATE 99534244135 Active Domi Rivera MA Active BACTRIM DS 800-160 MG TAB 1 tab by mouth twice daily 2 BACTRIM DS 800-160 MG TAB 984844 TRIMETHOPRIM-SULFAMETHOXAZOLE Inac tive PROVIGIL 100 MG TABS Take one by mouth daily 4 PROVIGIL 100 MG TABS 984198 MODAFINIL Inactive FUROSEMIDE 40 MG TABS 1 by mouth daily FU ROSEMIDE 40 MG TABS 914114 FUROSEMIDE Inactive KLOR-CON 20 MEQ PACK Take one by mouth daily 8 KLOR-CON 20 MEQ PACK 278659 POTASSIUM CHLORIDE Inactive LISINOPRIL 5 MG TABS 1 by mouth every day LISINOPRIL 5 MG TABS 474870 LISINOPRIL Inactive COLCRYS 0.6 MG TABS 1 po q 6 hours prn gout pain 03/02 COLCRYS 0.6 MG TABS 830559 COLCHICINE Inactive JANUVIA 100 MG TABS 1/2 by mouth every day JANUVI A 100 MG TABS SITAGLIPTIN PHOSPHATE Inactive SIMVASTATIN 20 MG TABS 1 tab daily at bedtime SIMVASTATIN 20 MG TABS 418337 SIMVASTATIN Inactive COUMADIN 6 MG TABS 1 by mouth every other day COUMADIN 6 MG TABS 438918 WARFARIN SODIUM Inactive COUMADIN 5 MG TABS 1 by mouth every other day COUMADIN 5 MG TABS 447025 WARFARIN SODIUM Inactive LISINOPRIL 20 MG TABS 1 tab po at HS KOKI NOPRIL 20 MG TABS 545632 LISINOPRIL Inactive LISINOPRIL-HYDROCHLOROTHIAZIDE 20-12.5 MG TABS 1 tab by mouth da rocky LISINOPRIL-HYDROCHLOROTHIAZIDE 20-12.5 MG TABS 450623 LISINOPRIL-HYDROCHLOROTHIAZIDE Inactive POLYTRIM 64727-4.1 UNIT/ML-% SOLN 1 drop in affected e ye every 3 hours while awake x 7 days POLYTRIM 83592-7.1 UNIT/ML-% SOLN 28509 7 POLYMYXIN B-TRIMETHOPRIM Inactive COUMADIN 4 MG TABS 1 tablet daily COUMADIN 4 MG TABS 119038 WARFARIN SODIUM Inactive CLONIDINE HCL 0.1 MG TABS 1 po bid 7 days, then 1/2 tab po b id 7 days CLONIDINE HCL 0.1 MG TABS 121295 CLONIDINE HCL I nactive ALLOPURINOL 300 MG TABS Take 1 tablet by mouth daily 2 ALLOPURINOL 300 MG TABS 734309 ALLOPURINOL Inactive MECLIZINE HCL 25 MG TAB 1 po tid 3 days, then 1/2 tab tid 3 days MECLIZINE HCL 25 MG TAB 907461 MECLIZINE HCL Inactive LOVENOX 100 MG/ML SC SOLN One injection twice a day 20 09/15/15 LOVENOX 100 MG/ML SC SOLN 333893 ENOXAPARIN SODIUM Inactive Vital Signs Date Name [...] - Chem istry sodium, serum 136 mmol/L 090-442 6563/01/14 carbon dioxide, venous blood 25.4 mmol/L 21.0-32 [...] CBC - Chemistry cholesterol, serum 136 mg/dL 259-075 8444/08/09 triglyceride, serum, fasting 187 mg/dL 30-200 HDL [...] 1.0-3.5 Encounters Code Encounter Date Provider Facility CPT-[id number] Level 3 Est. Patient 09:34:30 PLUSH WEAVER Mitch luis [facility] CPT-66761 Level 3 Est. Patient 09:37:15 CDT Mitch luis [facility] CPT-40796 Level 3 Est. Patient 17:01:00 PLUSH WEAVER Mitch luis [facility] CPT-42808 Level 3 Est. Patient 13:53:19 PLUSH WEAVER Mitch luis [facility] CPT-49060 Level 3 Est. Patient 19:19:37 PLUSH WEAVER Mitch luis [facility] CPT-74314 Level 3 Est. Patient 13:25:53 PLUSH WEAVER Tavo toure MD [facility] CPT-19300 Level 3 Est. Patient 18:17:28 CDT Mitch luis [facility] CPT-14138 Level 3 Est. Patient 15:22:57 CDT Mitch luis [facility] CPT-47755 Level 3 Est. Patient 18:21:50 CDT Mitch luis [facility] CPT-46062 Level 3 Est. Patient 18:20:38 CDT Mitch luis [facility] CPT-52709 Level 3 Est. Patient 15:37:55 CDT Mitch luis [facility] CPT-43786 Level 2 Est. Patient 15:54:44 CDT Carmine benton MD [facility]-20760 Level 3 Est. Patient 21:46:01 PLUSH WEAVER Mitch luis [facility] CPT-63282 Level 3 Est. Patient 22:15:50 CDT Mitch luis [facility] CPT-92398 Level 3 Est. Patient 10:48:15 CDT Mitch luis [facility] CPT-33201 Level 3 Est. Patient 23:20:57 CDT Tavo toure MD [facility]-30069 Level 3 Est. Patient 16:26:13 CDT Mitch Arnol luis [facility] Procedures Code Procedure Name Date Entry Date Standard Desc ription CPT-93001 Hemoccult IFOBT - LAB USE ONLY 10:27:22 CDT CPT-04028 Venipuncture Draw Fee 08:27:08 CDT CPT-62408 Liver Profile - LAB USE ONLY 08:27:07 CDT 2 CPT-74269 Microalbumin - LAB USE ONLY 08:27:07 CDT 20 25/05/09 CPT-55518 PT/INR - LAB USE ONLY 08:27:07 CDT CPT-03766 HGBA1C - LAB USE ONLY 08:27:07 CDT CPT-04493 CBC - LAB USE ONLY 08:27:07 CDT CPT-81896 Venipuncture Draw Fee 11:09:14 CDT CPT-76789 Venipuncture Draw Fee 08:32:21 PLUSH WEAVER CPT-26625 Venipuncture Draw Fee 09:38:56 PLUSH WEAVER CPT-24885 No Charge Offi Visit 21:36:07 CDT 1 CPT-62935 Venipuncture Draw Fee 10:13:28 PLUSH WEAVER CPT-16063 Venipuncture Draw Fee 08:31:11 CDT CPT-60987 Aspir/Inject Med Joint 18:17:28 CDT CPT-24363 Venipuncture Draw Fee 10:13:30 CDT CPT-20785 Venipuncture Draw Fee 08:31:43 PLUSH WEAVER CPT-JTINJ Joint Injection 18:34:50 CDT CPT-50496 Knee 3V 12:25:09 CDT CPT-91323 Venipuncture Draw Fee 12:15:57 CDT CPT-060 Medical Surveillance Exam 21:31:43 CDT 2011 CPT-55055 Venipuncture Draw Fee 08:32:05 PLUSH WEAVER CPT-OV Office Visit 18:19:06 CDT
--- OUTSIDE RECORDS SUMMARY | 2020-01-18 13:01 | XMS REPORT | Clinical Summary ---
Author Author Admin, Mitch Leon Organization [facility] Address Unknown Phone Unavailable Allergies, Adverse [...] vessel, [place] or graft EDEMA 782.3 Resolved Mitch [...] Urbina DO Gout, unspecified BRUISE 924.9 Resolved Imtch Arnol Urbina DO Co ntusion of unspecified site OLECRANON BURSITIS, RIGHT 726.33 Resolved Br ucponce Arnol Urbina DO Olecranon bursitis UNSPECIFIED ANEMIA 285.9 Resolved Mitch Anrol Urbina DO Anemia, unspecified Malaise and fatigue [...] tab to equal 7mg daily WARFARIN SODIUM 20942131321 Active Kathie Juan RPT,R MA Active COLCRYS 0.6 MG TABS 1 tab qid prn gout COLCHICINE 81342868291 Active Kathie Juan RPT,RMA Active INVOKANA 100 MG ORAL TABS 1 tablet orally daily CANAGLIFLOZIN 70104436354 Active Kathie Juan RPT,RMA Active MINOXIDIL 2.5 MG TABS 1 tablet daily for high blood pressure 10/23 MINOXIDIL 66557091539 Active Mitch Arnol Carlitos VELASQUEZ Active AMLODIPINE BESYLATE 5 MG TABS 1 tablet by mouth daily AMLODIPINE BESYLATE 19569950086 Active Domi Rivera MA Active MECLIZINE HCL 25 MG TAB 1 po tid 3 days, then 1/2 tab tid 3 days MECLIZINE HCL 30172556863 No Longer Active Corey SEGURA Active ALLOPURINOL 300 MG TABS Take 1 tablet by mouth daily 2 ALLOPURINOL 55512879332 No Longer Active Corey SEGURA Activ e CLONIDINE HCL 0.1 MG TABS 1 po bid 7 days, then 1/2 tab po b id 7 days CLONIDINE HCL 01695200173 No Longer Active Corey SEGURA Active COUMADIN 5 MG TABS 1 tab PO daily WARFARIN SODIUM 41681890219 Active Domi Rivera MA Active COUMADIN 4 MG TABS 1 tablet daily WARFARIN SODI UM 88358443248 No Longer Active Corey SEGURA Active POLYTRIM 10721-5.1 UNIT/ML-% SOLN 1 drop in affected e ye every 3 hours while awake x 7 days POLYMYXIN B-TRIMETHOPRIM 59312718229 N o Longer Active Corey SEGURA Active LOSARTAN POTASSIUM-HCTZ 100-12.5 MG TABS 1 by mouth [place] for high blood pressure LOSARTAN POTASSIUM-HCTZ 50274068868 Active Domi Rivera MA Active LISINOPRIL-HYDROCHLOROTHIAZIDE 20-12.5 MG TABS 1 tab by mouth da rocky LISINOPRIL-HYDROCHLOROTHIAZIDE 45802185634 No Longer Active Mitch luis DO Active LISINOPRIL 20 MG TABS 1 tab po at HS LISINOPRIL 05850266234 No Longer Active Mitch Urbina DO Active COUMADIN 5 MG TABS 1 by mouth every other day WARFARIN SODIUM 87065683125 No Longer Active Mitch Urbina DO Active COUMADIN 6 MG TABS 1 by mouth every other day WARFARIN SODIUM 43385688072 No Longer Active Mitch Urbina DO Active SIMVASTATIN 40 MG TABS 1 tab daily at bedtime S IMVASTATIN 14851301909 Active Domi Rivera MA Active SIMVASTATIN 20 MG TABS 1 tab daily at bedtime S IMVASTATIN 72259181010 No Longer Active Mitch Urbina DO Active LOVENOX 100 MG/ML SC SOLN One injection twice a day 09/15/15 ENOXAPARIN SODIUM 55036762991 No Longer Active Carmine Yusuf MD A ctive JANUVIA 50 MG TABS Take one by mouth daily DIEGO GLIPTIN PHOSPHATE 48613711884 Active Tavo Hilton MD Active JANUVIA 100 MG TABS 1/2 by mouth every day DIEGO GLIPTIN PHOSPHATE 39561952835 No Longer Active Bijal Segal RN Active METFORMIN HCL 500 MG TABS 2 by mouth twice daily METFORMIN HCL 06155315218 Active Mitch Urbina DO Active GLIMEPIRIDE 4 MG TABS 1 tab po bid GLIMEPIRIDE 861038 59375 Active Mitch Urbina DO Active COLCRYS 0.6 MG TABS 1 po q 6 hours prn gout pain 03/02 COLCHICINE 36457037604 No Longer Active Camila Reese Active LISINOPRIL 5 MG TABS 1 by mouth every day LISIN OPRIL 26181961110 No Longer Active Nguyen Perez Active KLOR-CON 20 MEQ PACK Take one by mouth daily 8 POTASSIUM CHLORIDE 16904854383 No Longer Active Nguyen Perez Active FUROSEMIDE 40 MG TABS 1 by mouth daily FUROSEMI DE 50787096668 No Longer Active Nguyenmolly Perez Active PROVIGIL 200 MG TABS 1/2 tab po q day MODAFINIL 55493 059933 Active Curly Coker MD Active PROVIGIL 100 MG TABS Take one by mouth daily MO DAFINIL 82952109773 No Longer Active Mitch Urbina DO Active BACTRIM DS 800-160 MG TAB 1 tab by mouth twice daily 2 TRIMETHOPRIM-SULFAMETHOXAZOLE 98284022367 No Longer Active Renan Hays MD Active FAMOTIDINE 20 MG TABS by mouth twice a day FAMOTI DINE 06983804881 Active Mitch Urbina DO Active ADULT ASPIRIN LOW STRENGTH 81 MG TBDP 1 by mouth every daily ASPIRIN 38410465518 Active Mitch Urbina DO Active METOPROLOL TARTRATE 50 MG TABS 1 by mouth twice daily METOPROLOL TARTRATE 86373583315 Active Domi Rivera MA Active BACTRIM DS 800-160 MG TAB 1 tab by mouth twice daily 2 BACTRIM DS 800-160 MG TAB 974675 TRIMETHOPRIM-SULFAMETHOXAZOLE Inac tive PROVIGIL 100 MG TABS Take one by mouth daily 4 PROVIGIL 100 MG TABS 200693 MODAFINIL Inactive FUROSEMIDE 40 MG TABS 1 by mouth daily FU ROSEMIDE 40 MG TABS 684955 FUROSEMIDE Inactive KLOR-CON 20 MEQ PACK Take one by mouth daily 8 KLOR-CON 20 MEQ PACK 832923 POTASSIUM CHLORIDE Inactive LISINOPRIL 5 MG TABS 1 by mouth every day LISINOPRIL 5 MG TABS 203466 LISINOPRIL Inactive COLCRYS 0.6 MG TABS 1 po q 6 hours prn gout pain 03/02 COLCRYS 0.6 MG TABS 897674 COLCHICINE Inactive JANUVIA 100 MG TABS 1/2 by mouth every day JANUVI A 100 MG TABS SITAGLIPTIN PHOSPHATE Inactive SIMVASTATIN 20 MG TABS 1 tab daily at bedtime SIMVASTATIN 20 MG TABS 992266 SIMVASTATIN Inactive COUMADIN 6 MG TABS 1 by mouth every other day COUMADIN 6 MG TABS 107975 WARFARIN SODIUM Inactive COUMADIN 5 MG TABS 1 by mouth every other day COUMADIN 5 MG TABS 598280 WARFARIN SODIUM Inactive LISINOPRIL 20 MG TABS 1 tab po at HS KOKI NOPRIL 20 MG TABS 668559 LISINOPRIL Inactive LISINOPRIL-HYDROCHLOROTHIAZIDE 20-12.5 MG TABS 1 tab by mouth da rocky LISINOPRIL-HYDROCHLOROTHIAZIDE 20-12.5 MG TABS 458595 LISINOPRIL-HYDROCHLOROTHIAZIDE Inactive POLYTRIM 93266-7.1 UNIT/ML-% SOLN 1 drop in affected e ye every 3 hours while awake x 7 days POLYTRIM 20603-4.1 UNIT/ML-% SOLN 66159 7 POLYMYXIN B-TRIMETHOPRIM Inactive COUMADIN 4 MG TABS 1 tablet daily COUMADIN 4 MG TABS 009611 WARFARIN SODIUM Inactive CLONIDINE HCL 0.1 MG TABS 1 po bid 7 days, then 1/2 tab po b id 7 days CLONIDINE HCL 0.1 MG TABS 482899 CLONIDINE HCL I nactive ALLOPURINOL 300 MG TABS Take 1 tablet by mouth daily 2 ALLOPURINOL 300 MG TABS 154721 ALLOPURINOL Inactive MECLIZINE HCL 25 MG TAB 1 po tid 3 days, then 1/2 tab tid 3 days MECLIZINE HCL 25 MG TAB 780989 MECLIZINE HCL Inactive LOVENOX 100 MG/ML SC SOLN One injection twice a day 20 09/15/15 LOVENOX 100 MG/ML SC SOLN 084532 ENOXAPARIN SODIUM Inactive Vital Signs Date Name [...] - Chem istry sodium, serum 136 mmol/L 335-676 5140/01/14 carbon dioxide, venous blood 25.4 mmol/L 21.0-32 [...] CBC - Chemistry cholesterol, serum 136 mg/dL 310-767 7243/08/09 triglyceride, serum, fasting 187 mg/dL 30-200 HDL [...] 1.0-3.5 Encounters Code Encounter Date Provider Facility CPT-68248 Level 3 Est. Patient 09:34:30 BORDER INSPECTOR Mitch luis [facility] CPT-03001 Level 3 Est. Patient 09:37:15 CDT Mitch luis [facility] CPT-75436 Level 3 Est. Patient 17:01:00 BORDER INSPECTOR Mitch W L ee [facility] CPT-01584 Level 3 Est. Patient 13:53:19 BORDER INSPECTOR Mitch luis [facility] CPT-07983 Level 3 Est. Patient 19:19:37 BORDER INSPECTOR Mitch luis [facility] CPT-75886 Level 3 Est. Patient 13:25:53 BORDER INSPECTOR Tavo toure MD [facility] CPT-45408 Level 3 Est. Patient 18:17:28 CDT Mitch luis [facility] CPT-68464 Level 3 Est. Patient 15:22:57 CDT Mitch luis [facility] CPT-35198 Level 3 Est. Patient 18:21:50 CDT Mitch luis [facility] CPT-04821 Level 3 Est. Patient 18:20:38 CDT Mitch luis [facility] CPT-35537 Level 3 Est. Patient 15:37:55 CDT Mitch luis [facility] CPT-41661 Level 2 Est. Patient 15:54:44 CDT Carmine benton MD [facility] CPT-62013 Level 3 Est. Patient 21:46:01 BORDER INSPECTOR Mitch luis [facility] CPT-19370 Level 3 Est. Patient 22:15:50 CDT Mitch luis [facility] CPT-56050 Level 3 Est. Patient 10:48:15 CDT Mitch luis [facility] CPT-36442 Level 3 Est. Patient 23:20:57 CDT Tavo toure MD [facility] CPT-71079 Level 3 Est. Patient 16:26:13 CDT Mitch Arnol luis [facility] Procedures Code Procedure Name Date Entry Date Standard Desc ription CPT-38045 Hemoccult IFOBT - LAB USE ONLY 10:27:22 CDT CPT-73552 Venipuncture Draw Fee 08:27:08 CDT CPT-56315 Liver Profile - LAB USE ONLY 08:27:07 CDT 2 CPT-99946 Microalbumin - LAB USE ONLY 08:27:07 CDT 20 25/05/09 CPT-33071 PT/INR - LAB USE ONLY 08:27:07 CDT CPT-05146 HGBA1C - LAB USE ONLY 08:27:07 CDT CPT-83925 CBC - LAB USE ONLY 08:27:07 CDT CPT-69444 Venipuncture Draw Fee 11:09:14 CDT CPT-59260 Venipuncture Draw Fee 08:32:21 BORDER INSPECTOR CPT-31972 Venipuncture Draw Fee 09:38:56 BORDER INSPECTOR CPT-02685 No Charge Offi Visit 21:36:07 CDT 1 CPT-25509 Venipuncture Draw Fee 10:13:28 BORDER INSPECTOR CPT-63689 Venipuncture Draw Fee 08:31:11 CDT CPT-73917 Aspir/Inject Med Joint 18:17:28 CDT CPT-81835 Venipuncture Draw Fee 10:13:30 CDT CPT-22989 Venipuncture Draw Fee 08:31:43 BORDER INSPECTOR CPT-JTINJ Joint Injection 18:34:50 CDT CPT-16954 Knee 3V 12:25:09 CDT CPT-60368 Venipuncture Draw Fee 12:15:57 CDT CPT-060 Medical Surveillance Exam 21:31:43 CDT 2011 CPT-70366 Venipuncture Draw Fee 08:32:05 BORDER INSPECTOR CPT-OV Office Visit 18:19:06 CDT
--- OUTSIDE RECORDS SUMMARY | 2020-01-18 13:02 | XMS REPORT | Clinical Summary ---
Author Author Admin, Mitch Leon Organization [facility] Address Unknown Phone Unavailable Allergies, Adverse Reactions, [...] Coronary atherosclerosis of unspecified type of vessel, red cliff or graft EDEMA 782.3 Resolved Mitch Urbina [...] extremity edema, left 782.3 Active Mitch Ambrose Calritos DO Edema Degenerative joint disease, knee, right [...] by mouth twice a day 2017 FAMOTIDINE 51844234574 No Longer Active Mitch Urbina DO Active COLCRYS 0.6 MG ORAL TABLET 1 tab qid prn gout C OLCHICINE 80846886224 No Longer Active Mitch Urbina DO Active GLIMEPIRIDE 2 MG ORAL TABLET 1 po BID GLIMEPIRID E 99693615492 Active Renee Oconnor PRODUCT TRAINER Active KEFLEX 500 MG ORAL CAPSULE 1 po qid CEPHALEXI N 29013855042 No Longer Active Mitch Urbina DO Active LOSARTAN POTASSIUM 100 MG ORAL TABLET 1 pill by mouth daily, for blood pressure LOSARTAN POTASSIUM 37778507288 Active Ana Wallace Active AMLODIPINE BESYLATE 5 MG ORAL TABLET 1 tablet by mouth daily 201 01/20/04 AMLODIPINE BESYLATE 32143088869 No Longer Active Joe fulton APRN Active MITIGARE 0.6 MG ORAL CAPSULE 2 capsules at onset of go ut pain, then take one capsule at 1 hour if symptoms persist. COLCHICINE 59 351902630 Active Mitch Urbina DO Active COUMADIN 1 MG ORAL TABLET 2 tabs orally daily with the 5mg tab to equal 7mg daily WARFARIN SODIUM 30369263022 Active Ana Wallace Active INVOKANA 100 MG ORAL TABLET 1 tablet orally daily CANAGLIFLOZIN 92069079024 Active Mitch Urbina DO Active MINOXIDIL 2.5 MG ORAL TABLET 1 tablet daily for high blood press ure MINOXIDIL 13080610211 Active Mitch Urbina DO Active MECLIZINE HCL 25 MG ORAL TABLET 1 po tid 3 days, then 1/2 ta b tid 3 days MECLIZINE HCL 87685443199 No Longer Active Corey SEGURA Active ALLOPURINOL 300 MG ORAL TABLET Take 1 tablet by mouth daily 2012 ALLOPURINOL 57798175320 No Longer Active Corey SEGURA Active CLONIDINE HCL 0.1 MG ORAL TABLET 1 po bid 7 days, then 1/2 t ab po bid 7 days CLONIDINE HCL 72938058998 No Longer Active Corey SEGURA Active COUMADIN 5 MG ORAL TABLET 1 tab PO daily WARFAR IN SODIUM 91428858942 Active Mitch Urbina DO Active COUMADIN 4 MG ORAL TABLET 1 tablet daily WARFAR IN SODIUM 31575518084 No Longer Active Corey SEGURA Active POLYTRIM 39684-1.1 UNIT/ML-% OPHTHALMIC SOLUTION 1 rui p in affected eye every 3 hours while awake x 7 days POLYMYXIN B-TRIMETHOP RIM 05848407690 No Longer Active Corey SEGURA Active LOSARTAN POTASSIUM-HCTZ 100-12.5 MG ORAL TABLET 1 by m outh daily for high blood pressure LOSARTAN POTASSIUM-HCTZ 47468327418 No Longer A ctive Mitch Urbina DO Active LISINOPRIL-HYDROCHLOROTHIAZIDE 20-12.5 MG ORAL TABLET 1 tab by m outh daily LISINOPRIL-HYDROCHLOROTHIAZIDE 25346270751 No Longer Active Mitch Urbina DO Active LISINOPRIL 20 MG ORAL TABLET 1 tab po at HS LIS INOPRIL 21670165623 No Longer Active Mitch Urbina DO Active COUMADIN 5 MG ORAL TABLET 1 by mouth every other day 2 WARFARIN SODIUM 81951603213 No Longer Active Mitch Urbina DO Active COUMADIN 6 MG ORAL TABLET 1 by mouth every other day 2 WARFARIN SODIUM 60725425209 No Longer Active Mitch Urbina DO Active SIMVASTATIN 40 MG ORAL TABLET 1 tab daily at bedtime SIMVASTATIN 97328507955 Active Mitch Urbina DO Active SIMVASTATIN 20 MG ORAL TABLET 1 tab daily at bedtime 2 SIMVASTATIN 60558331054 No Longer Active Mitch Urbina DO Active LOVENOX 100 MG/ML SUBCUTANEOUS SOLUTION One injection twice a da y ENOXAPARIN SODIUM 19462028573 No Longer Active Carmine Yusuf MD Active JANUVIA 50 MG ORAL TABLET Take one by mouth daily SITAGLIPTIN PHOSPHATE 72286079777 Active Mitch W Carlitos DO Active JANUVIA 100 MG ORAL TABLET 1/2 by mouth every day 2011 SITAGLIPTIN PHOSPHATE 27046851060 No Longer Active Bijal Segal RN Acti ve METFORMIN HCL 500 MG ORAL TABLET 2 by mouth twice daily METFORMIN HCL 79925624036 Active Mitch Arnol Urbina DO Active COLCRYS 0.6 MG ORAL TABLET 1 po q 6 hours prn gout pain COLCHICINE 70126778701 No Longer Active Camila Reese Active LISINOPRIL 5 MG ORAL TABLET 1 by mouth every day 11/17 LISINOPRIL 01412652117 No Longer Active Nguyen Perez Active KLOR-CON 20 MEQ ORAL PACKET Take one by mouth daily 09/10/08 POTASSIUM CHLORIDE 11362989967 No Longer Active Nguyen Perez Active FUROSEMIDE 40 MG ORAL TABLET 1 by mouth daily F UROSEMIDE 15877306719 No Longer Active Nguyen Perez Active PROVIGIL 200 MG ORAL TABLET 1/2 tab po q day MODA FINIL 16614068353 Active Renee Elvin BURNETTN Active PROVIGIL 100 MG ORAL TABLET Take one by mouth daily 08/20/04 MODAFINIL 16494992187 No Longer Active Mitch Urbina DO Active BACTRIM DS 800-160 MG ORAL TABLET 1 tab by mouth twice daily 201 10/19/09 TRIMETHOPRIM-SULFAMETHOXAZOLE 57614168411 No Longer Active C alberto Hays MD Active ADULT ASPIRIN LOW STRENGTH 81 MG ORAL TABLET DISINTEGR ATING 1 by mouth every daily ASPIRIN 66973618132 Active Mitch Urbina DO Ac tive METOPROLOL TARTRATE 50 MG ORAL TABLET 1 by mouth twice daily METOPROLOL TARTRATE 95390614949 Active Mitch Urbina DO Active BACTRIM DS 800-160 MG ORAL TABLET 1 tab by mouth twice daily 201 10/19/09 BACTRIM DS 800-160 MG ORAL TABLET 797068 TRIMETHOPRIM-SULFAMETHOXAZOLE Inactive PROVIGIL 100 MG ORAL TABLET Take one by mouth daily 08/20/04 PROVIGIL 100 MG ORAL TABLET 913983 MODAFINIL Inactive FUROSEMIDE 40 MG ORAL TABLET 1 by mouth daily FUROSEMIDE 40 MG ORAL TABLET 291720 FUROSEMIDE Inactive KLOR-CON 20 MEQ ORAL PACKET Take one by mouth daily 09/10/08 KLOR- CON 20 MEQ ORAL PACKET 8702600 POTASSIUM CHLORIDE Inactive LISINOPRIL 5 MG ORAL TABLET 1 by mouth every day 11/17 LISINOPRIL 5 MG ORAL TABLET 586049 LISINOPRIL Inactive COLCRYS 0.6 MG ORAL TABLET 1 po q 6 hours prn gout pain COLCRYS 0.6 MG ORAL TABLET 979479 COLCHICINE Inactive JANUVIA 100 MG ORAL TABLET 1/2 by mouth every day 2011 JANUVIA 100 MG ORAL TABLET SITAGLIPTIN PHOSPHATE Inactive SIMVASTATIN 20 MG ORAL TABLET 1 tab daily at bedtime 2 SIMVASTATIN 20 MG ORAL TABLET 420715 SIMVASTATIN Inactive COUMADIN 6 MG ORAL TABLET 1 by mouth every other day COUMADIN 6 MG ORAL TABLET 249180 WARFARIN SODIUM Inactive COUMADIN 5 MG ORAL TABLET 1 by mouth every other day COUMADIN 5 MG ORAL TABLET 119383 WARFARIN SODIUM Inactive LISINOPRIL 20 MG ORAL TABLET 1 tab po at HS LISINOPRIL 20 MG ORAL TABLET 982786 LISINOPRIL Inactive LISINOPRIL-HYDROCHLOROTHIAZIDE 20-12.5 MG ORAL TABLET 1 tab by m outh daily LISINOPRIL-HYDROCHLOROTHIAZIDE 20-12.5 MG ORAL TABLET 018401 LISINOPRIL-HYDROCHLOROTHIAZIDE Inactive POLYTRIM 76709-6.1 UNIT/ML-% OPHTHALMIC SOLUTION 1 rui p in affected eye every 3 hours while awake x 7 days POLYTRIM 1000 0-0.1 UNIT/ML-% OPHTHALMIC SOLUTION 186950 POLYMYXIN B-TRIMETHOPRIM Inactive COUMADIN 4 MG ORAL TABLET 1 tablet daily COUMADIN 4 MG ORAL TABLET 916544 WARFARIN SODIUM Inactive CLONIDINE HCL 0.1 MG ORAL TABLET 1 po bid 7 days, then 1/2 t ab po bid 7 days CLONIDINE HCL 0.1 MG ORAL TABLET 043000 CLONIDIN E HCL Inactive ALLOPURINOL 300 MG ORAL TABLET Take 1 tablet by mouth daily 2012 ALLOPURINOL 300 MG ORAL TABLET 338294 ALLOPURINOL I nactive MECLIZINE HCL 25 MG ORAL TABLET 1 po tid 3 days, then 1/2 ta b tid 3 days MECLIZINE HCL 25 MG ORAL TABLET 994599 MECLIZINE HCL Inactive AMLODIPINE BESYLATE 5 MG ORAL TABLET 1 tablet by mouth daily 201 01/20/04 AMLODIPINE BESYLATE 5 MG ORAL TABLET 250733 AMLODIPINE BESYLATE Inactive KEFLEX 500 MG ORAL CAPSULE 1 po qid K EFLEX 500 MG ORAL CAPSULE 041464 CEPHALEXIN Inactive COLCRYS 0.6 MG ORAL TABLET 1 tab qid prn gout COLCRYS 0.6 MG ORAL TABLET 327955 COLCHICINE Inactive FAMOTIDINE 20 MG ORAL TABLET by mouth twice a day 2017 FAMOTIDINE 20 MG ORAL TABLET 084668 FAMOTIDINE Inactive LOVENOX 100 MG/ML SUBCUTANEOUS SOLUTION One injection twice a da y LOVENOX 100 MG/ML SUBCUTANEOUS SOLUTION 493365 ENOXAPAR IN SODIUM Inactive Vital Signs Date [...] - Chem istry sodium, serum 139 mmol/L 974-279 9256/07/17 potassium, serum 4.2 mmol/L 3.5-5.2 chloride, serum 102 mmol/L 98-107 carbon dioxide, venous blood 28.9 mmol/L 21.0-32 .0 blood glucose 211 mg/dL 65-110 calcium, serum 10.6 mg/dL 8.5-10.1 urea nitrogen, blood 29 mg/dL 7-18 creatinine, serum 1.24 mg/dL 0.60-1.30 sodium, serum 141 mmol/L 876-896 9859/08/07 potassium, serum 4.5 mmol/L 3.5-5.2 chloride, serum [...] ... - Chemistry sodium, serum 144 mmol/L 986-668 9863/06/12 carbon dioxide, venous blood 26.6 mmol/L 21.0-32 [...] HGBA1C - Chemistry cholesterol, serum 136 mg/dL 011-511 2058/12/06 triglyceride, serum, fasting 247 mg/dL 30-200 HDL cholesterol, serum 41 mg/dL 32-60 LDL cholesterol, serum 46 mg/dL 0-130 aspartate aminotransferase (SGOT), serum 22 U/L 15-37 alanine aminotransferase (SGPT), serum 30 U/L 12-78 bilirubin, serum, total 0.80 mg/dL 0.00-1.00 hemoglobin A1C, blood, as % of total hemoglobin 6.4 % 4.3-6.0 Encounters Code Encounter Date Provider Facility CPT-60127 Level 3 Est. Patient 18:25:53 CDT Mitch luis [facility] CPT-02428 Level 3 Est. Patient 19:43:34 CDT Mitch luis [facility] CPT-79494 Level 4 Est. Patient 09:30:18 CDT Mitch luis [facility] CPT-99481 Level 3 Est. Patient 15:10:14 CDT Joe kamara [facility] CPT-36212 Level 3 Est. Patient 15:03:46 CDT Joe kamara [facility] CPT-21173 Level 3 Est. Patient 14:21:06 CDT Mitch luis [facility] CPT-53578 Level 3 Est. Patient 14:52:06 CDT [facility] Patient 09:34:30 CONTRACTS ADMINISTRATOR Mitch luis [facility]-31959 Level 3 Est. Patient 09:37:15 CDT Mitch Ambrose L janelle [facility]-00992 Level 3 Est. Patient 17:01:00 CONTRACTS ADMINISTRATOR Mitch Ambrose L janelle [facility] CPT-28593 Level 3 Est. Patient 13:53:19 CONTRACTS ADMINISTRATOR Mitch W L janelle [facility] CPT-30211 Level 3 Est. Patient 19:19:37 CONTRACTS ADMINISTRATOR Mitch W L janelle [facility] CPT-14763 Level 3 Est. Patient 13:25:53 CONTRACTS ADMINISTRATOR Tavo toure MD [facility]-83048 Level 3 Est. Patient 18:17:28 CDT Mitch luis [facility] CPT-90953 Level 3 Est. Patient 15:22:57 CDT Mitch W L janelle [facility]-42307 Level 3 Est. Patient 18:21:50 CDT Mitch Arnol L janelle [facility] CPT-60581 Level 3 Est. Patient 18:20:38 CDT Mitch Arnol L janelle [facility]-65677 Level 3 Est. Patient 15:37:55 CDT Mitch W L janelle [facility] CPT-65234 Level 2 Est. Patient 15:54:44 CDT Carmine benton MD [facility]-33287 Level 3 Est. Patient 21:46:01 CONTRACTS ADMINISTRATOR Mitch W L janelle [facility]-10904 Level 3 Est. Patient 22:15:50 CDT Mitch W L janelle [facility] CPT-87661 Level 3 Est. Patient 10:48:15 CDT Mitch luis [facility] CPT-32222 Level 3 Est. Patient 23:20:57 CDT Tavo toure MD [facility] CPT-77403 Level 3 Est. Patient 16:26:13 CDT Mitch luis [facility] Procedures Code Procedure Name Date Entry Date Standard Desc ription CPT-JTINJ Asp/Joint Injection 18:47:02 CDT CPT-60239 Venipuncture Draw Fee 09:26:17 CDT CPT-08359 PT/INR - LAB USE ONLY 13:32:49 CONTRACTS ADMINISTRATOR CPT-95327 Venipuncture Draw Fee 13:32:49 CONTRACTS ADMINISTRATOR CPT-87091 PT/INR - LAB USE ONLY 10:34:49 CONTRACTS ADMINISTRATOR CPT-13299 Venipuncture Draw Fee 10:34:48 CONTRACTS ADMINISTRATOR CPT-08448 PT/INR - LAB USE ONLY 09:22:03 CONTRACTS ADMINISTRATOR CPT-22737 Venipuncture Draw Fee 09:22:02 CONTRACTS ADMINISTRATOR CPT-23586 Hemoccult IFOBT - LAB USE ONLY 10:27:22 CDT CPT-06132 Venipuncture Draw Fee 08:27:08 CDT CPT-95211 Liver Profile - LAB USE ONLY 08:27:07 CDT 2 CPT-34387 Microalbumin - LAB USE ONLY 08:27:07 CDT 20 25/05/09 CPT-62323 PT/INR - LAB USE ONLY 08:27:07 CDT CPT-99206 HGBA1C - LAB USE ONLY 08:27:07 CDT CPT-20793 CBC - LAB USE ONLY 08:27:07 CDT CPT-49131 Venipuncture Draw Fee 11:09:14 CDT CPT-00628 Venipuncture Draw Fee 08:32:21 CONTRACTS ADMINISTRATOR CPT-47555 Venipuncture Draw Fee 09:38:56 CONTRACTS ADMINISTRATOR CPT-22982 No Charge Offi Visit 21:36:07 CDT 1 CPT-50860 Venipuncture Draw Fee 10:13:28 CONTRACTS ADMINISTRATOR CPT-08036 Venipuncture Draw Fee 08:31:11 CDT CPT-29827 Aspir/Inject Med Joint 18:17:28 CDT CPT-04125 Venipuncture Draw Fee 10:13:30 CDT CPT-60584 Venipuncture Draw Fee 08:31:43 CONTRACTS ADMINISTRATOR CPT-JTINJ Joint Injection 18:34:50 CDT CPT-72543 Knee 3V 12:25:09 CDT CPT-03018 Venipuncture Draw Fee 12:15:57 CDT CPT-060 Medical Surveillance Exam 21:31:43 CDT 2011 CPT-27366 Venipuncture Draw Fee 08:32:05 CONTRACTS ADMINISTRATOR CPT-OV Office Visit 18:19:06 CDT
--- OUTSIDE RECORDS SUMMARY | 2020-01-18 13:02 | XMS REPORT | Clinical Summary ---
Author Author Admin, Mitch Leon Organization [facility] Address Unknown Phone Unavailable Allergies, Adverse [...] ( 6mg total ) 2015 WARFARIN SODIUM 99784843263 Active Domi Rivera MA Acti ve INVOKANA 100 MG ORAL TABS 1 tablet orally daily CANAGLIFLOZIN 33047144005 Active Kathie Juan RPT,RMA Active MINOXIDIL 2.5 MG TABS 1 tablet daily for high blood pressure 10/23 MINOXIDIL 59615364404 Active Mitch Urbina DO Active AMLODIPINE BESYLATE 5 MG TABS 1 tablet by mouth daily AMLODIPINE BESYLATE 57385267547 Active Domi Rivera MA Active MECLIZINE HCL 25 MG TAB 1 po tid 3 days, then 1/2 tab tid 3 days MECLIZINE HCL 12813536761 No Longer Active Corey SEGURA Active ALLOPURINOL 300 MG TABS Take 1 tablet by mouth daily 2 ALLOPURINOL 52192611006 No Longer Active Corey SEGURA Activ e CLONIDINE HCL 0.1 MG TABS 1 po bid 7 days, then 1/2 tab po b id 7 days CLONIDINE HCL 50239031721 No Longer Active Corey SEGURA Active COUMADIN 5 MG TABS 1 tab PO daily WARFARIN SODIUM 91641998134 Active Mitch Urbina DO Active COUMADIN 4 MG TABS 1 tablet daily WARFARIN SODI UM 27143035486 No Longer Active Corey SEGURA Active POLYTRIM 39721-6.1 UNIT/ML-% SOLN 1 drop in affected e ye every 3 hours while awake x 7 days POLYMYXIN B-TRIMETHOPRIM 17778744632 N o Longer Active Corey SEGURA Active LOSARTAN POTASSIUM-HCTZ 100-12.5 MG TABS 1 by mouth da rocky for high blood pressure LOSARTAN POTASSIUM-HCTZ 32228913539 Active Domi Rivera MA Active LISINOPRIL-HYDROCHLOROTHIAZIDE 20-12.5 MG TABS 1 tab by mouth da rocky LISINOPRIL-HYDROCHLOROTHIAZIDE 66322002029 No Longer Active Mitch luis DO Active LISINOPRIL 20 MG TABS 1 tab po at HS LISINOPRIL 86802852683 No Longer Active Mitch Urbina DO Active COUMADIN 5 MG TABS 1 by mouth every other day WARFARIN SODIUM 95807843359 No Longer Active Mitch Urbina DO Active COUMADIN 6 MG TABS 1 by mouth every other day WARFARIN SODIUM 42725325221 No Longer Active Mitch Urbina DO Active COLCRYS 0.6 MG TABS 1 tab qid prn gout COLCHICINE 52927469888 Active Corey SEGURA Active SIMVASTATIN 40 MG TABS 1 tab daily at bedtime S IMVASTATIN 85295777025 Active Domi Rivera MA Active SIMVASTATIN 20 MG TABS 1 tab daily at bedtime S IMVASTATIN 92108601371 No Longer Active Mitch Urbina DO Active LOVENOX 100 MG/ML SC SOLN One injection twice a day 09/15/15 ENOXAPARIN SODIUM 78757854502 No Longer Active Carmine Navarrete ctive JANUVIA 50 MG TABS Take one by mouth daily DIEGO GLIPTIN PHOSPHATE 84408670636 Active Domi Rivera MA Active JANUVIA 100 MG TABS 1/2 by mouth every day DIEGO GLIPTIN PHOSPHATE 49160421680 No Longer Active Bijal Segal RN Active METFORMIN HCL 500 MG TABS 2 by mouth twice daily METFORMIN HCL 77103516166 Active Kathie Juan RPT,RMA Active GLIMEPIRIDE 4 MG TABS 1 tab po bid GLIMEPIRIDE 620668 33750 Active Kathie Juan RPT,RMA Active COLCRYS 0.6 MG TABS 1 po q 6 hours prn gout pain 03/02 COLCHICINE 35269392048 No Longer Active Camila Reese Active LISINOPRIL 5 MG TABS 1 by mouth every day LISIN OPRIL 39410608408 No Longer Active Nguyen Perez Active KLOR-CON 20 MEQ PACK Take one by mouth daily 8 POTASSIUM CHLORIDE 55914468755 No Longer Active Nguyen Perez Active FUROSEMIDE 40 MG TABS 1 by mouth daily FUROSEMI DE 69573679039 No Longer Active Nguyenmolly Perez Active PROVIGIL 200 MG TABS 1/2 tab po q day MODAFINIL 87975 904064 Active Domi Rivera MA Active PROVIGIL 100 MG TABS Take one by mouth daily MO DAFINIL 58146491639 No Longer Active Mitch Urbina DO Active BACTRIM DS 800-160 MG TAB 1 tab by mouth twice daily 2 TRIMETHOPRIM-SULFAMETHOXAZOLE 33075815362 No Longer Active Renan Hays MD Active FAMOTIDINE 20 MG TABS by mouth twice a day FAMOTI DINE 56094347064 Active Mitch Urbina DO Active ADULT ASPIRIN LOW STRENGTH 81 MG TBDP 1 by mouth every daily ASPIRIN 07648139660 Active Mitch Urbina DO Active METOPROLOL TARTRATE 50 MG TABS 1 by mouth twice daily METOPROLOL TARTRATE 13047135116 Active Domi Rivera MA Active BACTRIM DS 800-160 MG TAB 1 tab by mouth twice daily 2 BACTRIM DS 800-160 MG TAB 891657 TRIMETHOPRIM-SULFAMETHOXAZOLE Inac tive PROVIGIL 100 MG TABS Take one by mouth daily 4 PROVIGIL 100 MG TABS 782642 MODAFINIL Inactive FUROSEMIDE 40 MG TABS 1 by mouth daily FU ROSEMIDE 40 MG TABS 962477 FUROSEMIDE Inactive KLOR-CON 20 MEQ PACK Take one by mouth daily 8 KLOR-CON 20 MEQ PACK 209954 POTASSIUM CHLORIDE Inactive LISINOPRIL 5 MG TABS 1 by mouth every day LISINOPRIL 5 MG TABS 998329 LISINOPRIL Inactive COLCRYS 0.6 MG TABS 1 po q 6 hours prn gout pain 03/02 COLCRYS 0.6 MG TABS 105914 COLCHICINE Inactive JANUVIA 100 MG TABS 1/2 by mouth every day JANUVI A 100 MG TABS SITAGLIPTIN PHOSPHATE Inactive SIMVASTATIN 20 MG TABS 1 tab daily at bedtime SIMVASTATIN 20 MG TABS 824981 SIMVASTATIN Inactive COUMADIN 6 MG TABS 1 by mouth every other day COUMADIN 6 MG TABS 415074 WARFARIN SODIUM Inactive COUMADIN 5 MG TABS 1 by mouth every other day COUMADIN 5 MG TABS 310966 WARFARIN SODIUM Inactive LISINOPRIL 20 MG TABS 1 tab po at HS [place]OKI NOPRIL 20 MG TABS 142172 LISINOPRIL Inactive LISINOPRIL-HYDROCHLOROTHIAZIDE 20-12.5 MG TABS 1 tab by mouth da rocky LISINOPRIL-HYDROCHLOROTHIAZIDE 20-12.5 MG TABS 672967 LISINOPRIL-HYDROCHLOROTHIAZIDE Inactive POLYTRIM 56098-5.1 UNIT/ML-% SOLN 1 drop in affected e ye every 3 hours while awake x 7 days POLYTRIM 89327-3.1 UNIT/ML-% SOLN 51909 7 POLYMYXIN B-TRIMETHOPRIM Inactive COUMADIN 4 MG TABS 1 tablet daily COUMADIN 4 MG TABS 237546 WARFARIN SODIUM Inactive CLONIDINE HCL 0.1 MG TABS 1 po bid 7 days, then 1/2 tab po b id 7 days CLONIDINE HCL 0.1 MG TABS 025233 CLONIDINE HCL I nactive ALLOPURINOL 300 MG TABS Take 1 tablet by mouth daily 2 ALLOPURINOL 300 MG TABS 720855 ALLOPURINOL Inactive MECLIZINE HCL 25 MG TAB 1 po tid 3 days, then 1/2 tab tid 3 days MECLIZINE HCL 25 MG TAB 203977 MECLIZINE HCL Inactive LOVENOX 100 MG/ML SC SOLN One injection twice a day 09/15/15 LOVENOX 100 MG/ML SC SOLN 258333 ENOXAPARIN SODIUM Inactive Vital Signs Date Name [...] Ag - Chemistry sodium, serum 141 mmol/L 636-557 1188/07/06 potassium, serum 4.4 mmol/L 3.5-5.2 chloride, serum [...] - Chem istry sodium, serum 136 mmol/L 723-068 5392/01/14 carbon dioxide, venous blood 25.4 mmol/L 21.0-32 [...] 7.0 % 4.3-6.0 cholesterol, serum 120 mg/dL 693-567 9061/07/06 triglyceride, serum, fasting 186 mg/dL 30-200 HDL [...] 1.0-3.5 Encounters Code Encounter Date Provider Facility CPT-95421 Level 3 Est. Patient 09:34:30 GRAIN CLEANER Mitch luis [facility] CPT-42229 Level 3 Est. Patient 09:37:15 CDT Mitch luis [facility] CPT-55624 Level 3 Est. Patient 17:01:00 GRAIN CLEANER Mitch luis [facility] CPT-65774 Level 3 Est. Patient 13:53:19 GRAIN CLEANER Mitch luis [facility] CPT-20173 Level 3 Est. Patient 19:19:37 GRAIN CLEANER Mitch luis [facility] CPT-42637 Level 3 Est. Patient 13:25:53 GRAIN CLEANER Tavo toure MD [facility] CPT-73588 Level 3 Est. Patient 18:17:28 CDT Mitch luis [facility] CPT-81952 Level 3 Est. Patient 15:22:57 CDT Mitch luis [facility] CPT-84775 Level 3 Est. Patient 18:21:50 CDT Mitch luis [facility] CPT-56285 Level 3 Est. Patient 18:20:38 CDT Mitch luis [facility] CPT-17352 Level 3 Est. Patient 15:37:55 CDT Mitch luis [facility] CPT-16387 Level 2 Est. Patient 15:54:44 CDT Carmine benton MD [facility] CPT-45684 Level 3 Est. Patient 21:46:01 GRAIN CLEANER Mitch luis [facility] CPT-69905 Level 3 Est. Patient 22:15:50 CDT Mitch luis [facility] CPT-72705 Level 3 Est. Patient 10:48:15 CDT Mitch luis [facility] CPT-70389 Level 3 Est. Patient 23:20:57 CDT Tavo toure MD [facility] CPT-64073 Level 3 Est. Patient 16:26:13 CDT Mitch luis [facility] Procedures Code Procedure Name Date Entry Date Standard Desc ription CPT-90552 Venipuncture Draw Fee 08:32:21 GRAIN CLEANER CPT-94037 Venipuncture Draw Fee 09:38:56 GRAIN CLEANER CPT-28575 No Charge Offi Visit 21:36:07 CDT 1 CPT-52944 Venipuncture Draw Fee 10:13:28 GRAIN CLEANER CPT-64073 Venipuncture Draw Fee 08:31:11 CDT CPT-31993 Aspir/Inject Med Joint 18:17:28 CDT CPT-68494 Venipuncture Draw Fee 10:13:30 CDT CPT-43790 Venipuncture Draw Fee 08:31:43 GRAIN CLEANER CPT-JTINJ Joint Injection 18:34:50 CDT CPT-16553 Knee 3V 12:25:09 CDT CPT-18022 Venipuncture Draw Fee 12:15:57 CDT CPT-060 Medical Surveillance Exam 21:31:43 CDT 2011 CPT-53359 Venipuncture Draw Fee 08:32:05 GRAIN CLEANER CPT-OV Office Visit 18:19:06 CDT
--- OUTSIDE RECORDS SUMMARY | 2020-01-18 13:02 | XMS REPORT | Clinical Summary ---
Author Author Admin, Mitch Leon Organization [facility] [employer]) Address Unknown Phone Unavailable Allergies, Adverse Reactions, [...] USE OF ANTICOAGULANTS V58.61 Resol kylah Mitch Uribna DO Long-term (current) use of anticoagulant s HEALTH MAINTENANCE EXAM V70.0 Active Mitch Meraz DO Routine general medical examination at a health care facility CORONARY HEART DISEASE 414.00 Active Mitch Urbina DO Coronary atherosclerosis of unspecified type of vessel, [place] or graft EDEMA 782.3 Resolved Mitch Urbina [...] 1 tablet by mouth daily AMLODIPINE BESYLATE 92268660738 No Longer Active Joe Williamson APRN Active MITIGARE 0.6 MG ORAL CAPS 2 capsules at onset of gout pain, then take one capsule at 1 hour if symptoms persist. COLCHICINE 59 278952420 Active Mitch Urbina DO Active COUMADIN 1 MG TAB 2 tabs orally daily with the 5mg tab to equal 7mg daily WARFARIN SODIUM 83739304970 Active Mitch Urbina DO Active COLCRYS 0.6 MG TABS 1 tab qid prn gout COLCHICINE 60105965568 Active Norma Cazarse Active INVOKANA 100 MG ORAL TABS 1 tablet orally daily CANAGLIFLOZIN 49152081605 Active Brenda Gaymerman Active MINOXIDIL 2.5 MG TABS 1 tablet daily for high blood pressure 10/23 MINOXIDIL 88775500097 Active Ana Wallace Active MECLIZINE HCL 25 MG TAB 1 po tid 3 days, then 1/2 tab tid 3 days MECLIZINE HCL 25445642906 No Longer Active Corey SEGRUA Active ALLOPURINOL 300 MG TABS Take 1 tablet by mouth daily 2 ALLOPURINOL 55655133492 No Longer Active Corey SEGURA Activ e CLONIDINE HCL 0.1 MG TABS 1 po bid 7 days, then 1/2 tab po b id 7 days CLONIDINE HCL 50526625687 No Longer Active Corey SEGURA Active COUMADIN 5 MG TABS 1 tab PO daily WARFARIN SODIUM 69104255153 Active Mitch Urbina DO Active COUMADIN 4 MG TABS 1 tablet daily WARFARIN SODI UM 17294521708 No Longer Active Corey SEGURA Active POLYTRIM 50970-3.1 UNIT/ML-% SOLN 1 drop in affected e ye every 3 hours while awake x 7 days POLYMYXIN B-TRIMETHOPRIM 92159113801 N o Longer Active Corey SEGURA Active LOSARTAN POTASSIUM-HCTZ 100-12.5 MG TABS 1 by mouth da [place] for high blood pressure LOSARTAN POTASSIUM-HCTZ 42381162553 Active Stephy Urbina DO Active LISINOPRIL-HYDROCHLOROTHIAZIDE 20-12.5 MG TABS 1 tab by mouth da rocky LISINOPRIL-HYDROCHLOROTHIAZIDE 44170207927 No Longer Active Mitch luis DO Active LISINOPRIL 20 MG TABS 1 tab po at HS LISINOPRIL 43491710716 No Longer Active Mitch Urbina DO Active COUMADIN 5 MG TABS 1 by mouth every other day WARFARIN SODIUM 08544088601 No Longer Active Mitch Urbina DO Active COUMADIN 6 MG TABS 1 by mouth every other day WARFARIN SODIUM 80404388254 No Longer Active Mitch Urbina DO Active SIMVASTATIN 40 MG TABS 1 tab daily at bedtime S IMVASTATIN 48796465382 Active Mitch Urbina DO Active SIMVASTATIN 20 MG TABS 1 tab daily at bedtime S IMVASTATIN 14205341165 No Longer Active Mitch Urbina DO Active LOVENOX 100 MG/ML SC SOLN One injection twice a day 09/15/15 ENOXAPARIN SODIUM 07370866241 No Longer Active Carmine Navarrete ctive JANUVIA 50 MG TABS Take one by mouth daily DIEGO GLIPTIN PHOSPHATE 27882004834 Active Mitch Urbina DO Active JANUVIA 100 MG TABS 1/2 by mouth every day DIEGO GLIPTIN PHOSPHATE 40251520328 No Longer Active Bijal Segal RN Active METFORMIN HCL 500 MG TABS 2 by mouth twice daily METFORMIN HCL 63633885302 Active Mitch Urbina DO Active GLIMEPIRIDE 4 MG TABS 1 tab po bid GLIMEPIRIDE 390325 76119 Active Mitch Urbina DO Active COLCRYS 0.6 MG TABS 1 po q 6 hours prn gout pain 03/02 COLCHICINE 20280161494 No Longer Active Camila Reese Active LISINOPRIL 5 MG TABS 1 by mouth every day LISIN OPRIL 14126902737 No Longer Active Nguyen Perez Active KLOR-CON 20 MEQ PACK Take one by mouth daily 8 POTASSIUM CHLORIDE 72736012975 No Longer Active Nguyen Perez Active FUROSEMIDE 40 MG TABS 1 by mouth daily FUROSEMI DE 32990095771 No Longer Active Nguyen Perez Active PROVIGIL 200 MG TABS 1/2 tab po q day MODAFINIL 81210 387906 Active Kathie Juan RPT,RMA Active PROVIGIL 100 MG TABS Take one by mouth daily MO DAFINIL 44494966275 No Longer Active Mitch Urbina DO Active BACTRIM DS 800-160 MG TAB 1 tab by mouth twice daily 2 TRIMETHOPRIM-SULFAMETHOXAZOLE 93401115680 No Longer Active Renan Hays MD Active FAMOTIDINE 20 MG TABS by mouth twice a day FAMOTI DINE 15869176470 Active Mitch Urbina DO Active ADULT ASPIRIN LOW STRENGTH 81 MG TBDP 1 by mouth every daily ASPIRIN 57806683066 Active Mitch Urbina DO Active METOPROLOL TARTRATE 50 MG TABS 1 by mouth twice daily METOPROLOL TARTRATE 65214275252 Active Mitch Urbina DO Active ALLOPURINOL 300 MG TABS Take 1 tablet by mouth daily 2 ALLOPURINOL 300 MG TABS 681972 ALLOPURINOL Inactive BACTRIM DS 800-160 MG TAB 1 tab by mouth twice daily 2 BACTRIM DS 800-160 MG TAB 239875 TRIMETHOPRIM-SULFAMETHOXAZOLE Inac tive CLONIDINE HCL 0.1 MG TABS 1 po bid 7 days, then 1/2 tab po b id 7 days CLONIDINE HCL 0.1 MG TABS 060291 CLONIDINE HCL I nactive COUMADIN 5 MG TABS 1 by mouth every other day COUMADIN 5 MG TABS 434609 WARFARIN SODIUM Inactive FUROSEMIDE 40 MG TABS 1 by mouth daily FU ROSEMIDE 40 MG TABS 631505 FUROSEMIDE Inactive KLOR-CON 20 MEQ PACK Take one by mouth daily 8 KLOR-CON 20 MEQ PACK 994833 POTASSIUM CHLORIDE Inactive LISINOPRIL 20 MG TABS 1 tab po at HS KOKI NOPRIL 20 MG TABS 897302 LISINOPRIL Inactive POLYTRIM 59198-4.1 UNIT/ML-% SOLN 1 drop in affected e ye every 3 hours while awake x 7 days POLYTRIM 20978-6.1 UNIT/ML-% SOLN 92676 7 POLYMYXIN B-TRIMETHOPRIM Inactive AMLODIPINE BESYLATE 5 MG TABS 1 tablet by mouth daily AMLODIPINE BESYLATE 5 MG TABS 173871 AMLODIPINE BESYLATE Inactive LISINOPRIL 5 MG TABS 1 by mouth every day LISINOPRIL 5 MG TABS 933531 LISINOPRIL Inactive LISINOPRIL-HYDROCHLOROTHIAZIDE 20-12.5 MG TABS 1 tab by mouth da [place] LISINOPRIL-HYDROCHLOROTHIAZIDE 20-12.5 MG TABS 902873 LISINOPRIL-HYDROCHLOROTHIAZIDE Inactive SIMVASTATIN 20 MG TABS 1 tab daily at bedtime SIMVASTATIN 20 MG TABS 549262 SIMVASTATIN Inactive COUMADIN 4 MG TABS 1 tablet daily COUMADIN 4 MG TABS 713571 WARFARIN SODIUM Inactive MECLIZINE HCL 25 MG TAB 1 po tid 3 days, then 1/2 tab tid 3 days MECLIZINE HCL 25 MG TAB 779645 MECLIZINE HCL Inactive COUMADIN 6 MG TABS 1 by mouth every other day COUMADIN 6 MG TABS 406972 WARFARIN SODIUM Inactive LOVENOX 100 MG/ML SC SOLN One injection twice a day 09/15/15 LOVENOX 100 MG/ML SC SOLN 386987 ENOXAPARIN SODIUM Inactive PROVIGIL 100 MG TABS Take one by mouth daily 4 PROVIGIL 100 MG TABS 277778 MODAFINIL Inactive JANUVIA 100 MG TABS 1/2 by mouth every day JANUVI A 100 MG TABS SITAGLIPTIN PHOSPHATE Inactive COLCRYS 0.6 MG TABS 1 po q 6 hours prn gout pain 03/02 COLCRYS 0.6 MG TABS 415653 COLCHICINE Inactive Vital Signs Date Name Value [...] Range Description Chart Maintenance: hemoccult added to [facility] - Chemistry occult blood, stool (E&M) Positive Lab Report: HGBA1C - Chemistry hemoglobin A1C, blood, as % of total hemoglobin 6.6 % 4.3-6.0 Lab Report: Lipid Panel, HEPATIC PANEL, MICROALB/CREAT W/RATIO, HGBA1C, CBC - Chemistry cholesterol, serum 136 mg/dL 866-863 9108/08/09 triglyceride, serum, fasting 187 mg/dL 30-200 HDL [...] 1.0-3.5 Encounters Code Encounter Date Provider Facility CPT-61923 Level 3 Est. Patient 15:10:14 CDT Joe kamara [facility] CPT-83678 Level 3 Est. Patient 15:03:46 CDT Joe kamara [facility] CPT-45340 Level 3 Est. Patient 14:21:06 CDT Mitch luis [facility] CPT-88189 Level 3 Est. Patient 14:52:06 CDT Joe kamara [facility] CPT-05004 Level 3 Est. Patient 09:34:30 COLLECTIONS DIRECTOR Mitch luis [facility] CPT-09811 Level 3 Est. Patient 09:37:15 CDT Mitch luis [facility] CPT-51829 Level 3 Est. Patient 17:01:00 COLLECTIONS DIRECTOR Mitch luis [facility] CPT-40068 Level 3 Est. Patient 13:53:19 COLLECTIONS DIRECTOR Mitch luis [facility] CPT-16259 Level 3 Est. Patient 19:19:37 COLLECTIONS DIRECTOR Mitch luis [facility] CPT-62226 Level 3 Est. Patient 13:25:53 COLLECTIONS DIRECTOR Tavo toure MD [facility] CPT-17041 Level 3 Est. Patient 18:17:28 CDT Mitch luis [facility] CPT-85597 Level 3 Est. Patient 15:22:57 CDT Mitch Arnol luis DO [facility] CPT-47732 Level 3 Est. Patient 18:21:50 CDT Mitch W L janelle [facility] CPT-04767 Level 3 Est. Patient 18:20:38 CDT Mitch Arnol luis [facility] CPT-68996 Level 3 Est. Patient 15:37:55 CDT Mitch Arnol luis [facility] CPT-91184 Level 2 Est. Patient 15:54:44 CDT Carmine benton MD [facility] CPT-22463 Level 3 Est. Patient 21:46:01 COLLECTIONS DIRECTOR Mitch luis [facility] CPT-84792 Level 3 Est. Patient 22:15:50 CDT Mitch Arnol luis [facility] CPT-51674 Level 3 Est. Patient 10:48:15 CDT Mitch luis [facility] CPT-63271 Level 3 Est. Patient 23:20:57 CDT Tavo toure MD [facility] CPT-29338 Level 3 Est. Patient 16:26:13 CDT Mitch Castellano janelle [facility] Procedures Code Procedure Name Date Entry Date Standard Desc ription CPT-60264 PT/INR - LAB USE ONLY 13:32:49 COLLECTIONS DIRECTOR CPT-48114 Venipuncture Draw Fee 13:32:49 COLLECTIONS DIRECTOR CPT-82953 PT/INR - LAB USE ONLY 10:34:49 COLLECTIONS DIRECTOR CPT-77823 Venipuncture Draw Fee 10:34:48 COLLECTIONS DIRECTOR CPT-59965 PT/INR - LAB USE ONLY 09:22:03 COLLECTIONS DIRECTOR CPT-72311 Venipuncture Draw Fee 09:22:02 COLLECTIONS DIRECTOR CPT-82974 Hemoccult IFOBT - LAB USE ONLY 10:27:22 CDT CPT-21882 Venipuncture Draw Fee 08:27:08 CDT CPT-41358 Liver Profile - LAB USE ONLY 08:27:07 CDT 2 CPT-96053 Microalbumin - LAB USE ONLY 08:27:07 CDT 20 25/05/09 CPT-55269 PT/INR - LAB USE ONLY 08:27:07 CDT CPT-26791 HGBA1C - LAB USE ONLY 08:27:07 CDT CPT-62792 CBC - LAB USE ONLY 08:27:07 CDT CPT-80553 Venipuncture Draw Fee 11:09:14 CDT CPT-13353 Venipuncture Draw Fee 08:32:21 COLLECTIONS DIRECTOR CPT-45216 Venipuncture Draw Fee 09:38:56 COLLECTIONS DIRECTOR CPT-57373 No Charge Offi Visit 21:36:07 CDT 1 CPT-77398 Venipuncture Draw Fee 10:13:28 COLLECTIONS DIRECTOR CPT-60326 Venipuncture Draw Fee 08:31:11 CDT CPT-82389 Aspir/Inject Med Joint 18:17:28 CDT CPT-59137 Venipuncture Draw Fee 10:13:30 CDT CPT-52279 Venipuncture Draw Fee 08:31:43 COLLECTIONS DIRECTOR CPT-JTINJ Joint Injection 18:34:50 CDT CPT-70481 Knee 3V 12:25:09 CDT CPT-03081 Venipuncture Draw Fee 12:15:57 CDT CPT-060 Medical Surveillance Exam 21:31:43 CDT 2011 CPT-61240 Venipuncture Draw Fee 08:32:05 COLLECTIONS DIRECTOR CPT-OV Office Visit 18:19:06 CDT
--- OUTSIDE RECORDS SUMMARY | 2020-01-18 13:02 | XMS REPORT | Clinical Summary ---
[...] Ambrose Carlitos Cough, chronic ICD-786.2 Inactive Mitch eTjeda O Sebaceous cyst, infected ICD-706.2 Inactive Mitch Arnol Carlitos VELASQUEZ Cellulitis ICD-682.9 Inactive Mitch Urbina 10/23 CELLULITIS, GROIN, LEFT ICD-682.2 Inactive oZya Urbina DO Medication List Medication Instructions Start Date Stop Date Generic Name NDC Status Provider Patient Instruction GLIMEPIRIDE 2 MG ORAL TABS 1 po BID GLIMEPIRIDE 24509 232344 Active Ana Wallace Active KEFLEX 500 MG CAP 1 po qid CEPHALEXIN 239880816 20 No Longer Active Mitch Urbina DO Active LOSARTAN POTASSIUM 100 MG TABS 1 pill by mouth daily, for bl ood pressure LOSARTAN POTASSIUM 78964081460 Active Ana Wallace Active AMLODIPINE BESYLATE 5 MG TABS 1 tablet by mouth daily AMLODIPINE BESYLATE 41153790436 No Longer Active Joe Williamson APRN Active MITIGARE 0.6 MG ORAL CAPS 2 capsules at onset of gout pain, then take one capsule at 1 hour if symptoms persist. COLCHICINE 59 843539553 Active Mitch Urbina DO Active COUMADIN 1 MG TAB 2 tabs orally daily with the 5mg tab to equal 7mg daily WARFARIN SODIUM 05049661062 Active Mitch Urbina DO Active COLCRYS 0.6 MG TABS 1 tab qid prn gout COLCHICINE 73794679813 Active Norma Cazares Active INVOKANA 100 MG ORAL TABS 1 tablet orally daily CANAGLIFLOZIN 90951200201 Active Mitch Urbina DO Active MINOXIDIL 2.5 MG TABS 1 tablet daily for high blood pressure 10/23 MINOXIDIL 37895507182 Active Mitch Urbina DO Active MECLIZINE HCL 25 MG TAB 1 po tid 3 days, then 1/2 tab tid 3 days MECLIZINE HCL 52271552401 No Longer Active Corey SEGURA Active ALLOPURINOL 300 MG TABS Take 1 tablet by mouth daily 2 ALLOPURINOL 57527473251 No Longer Active Corey SEGURA Activ e CLONIDINE HCL 0.1 MG TABS 1 po bid 7 days, then 1/2 tab po b id 7 days CLONIDINE HCL 55550332117 No Longer Active Corey SEGURA Active COUMADIN 5 MG TABS 1 tab PO daily WARFARIN SODIUM 45264745490 Active Mitch Urbina DO Active COUMADIN 4 MG TABS 1 tablet daily WARFARIN SODI UM 93175195232 No Longer Active Corey SEGURA Active POLYTRIM 74118-2.1 UNIT/ML-% SOLN 1 drop in affected e ye every 3 hours while awake x 7 days POLYMYXIN B-TRIMETHOPRIM 31685686409 N o Longer Active Corey SEGURA Active LOSARTAN POTASSIUM-HCTZ 100-12.5 MG TABS 1 by mouth [place] for high blood pressure LOSARTAN POTASSIUM-HCTZ 46862669182 No Longer A ctive Mitch Urbina DO Active LISINOPRIL-HYDROCHLOROTHIAZIDE 20-12.5 MG TABS 1 tab by mouth [place] LISINOPRIL-HYDROCHLOROTHIAZIDE 88526941756 No Longer Active Mitch luis DO Active LISINOPRIL 20 MG TABS 1 tab po at HS LISINOPRIL 16854306584 No Longer Active Mitch Urbina DO Active COUMADIN 5 MG TABS 1 by mouth every other day WARFARIN SODIUM 38491032073 No Longer Active Mithc Urbina DO Active COUMADIN 6 MG TABS 1 by mouth every other day WARFARIN SODIUM 85520263056 No Longer Active Mitch Urbina DO Active SIMVASTATIN 40 MG TABS 1 tab daily at bedtime S IMVASTATIN 69396669695 Active Mitch Urbina DO Active SIMVASTATIN 20 MG TABS 1 tab daily at bedtime S IMVASTATIN 40371334859 No Longer Active Mitch Urbina DO Active LOVENOX 100 MG/ML SC SOLN One injection twice a day 09/15/15 ENOXAPARIN SODIUM 10250621955 No Longer Active Carmine Yusuf MD A ctive JANUVIA 50 MG TABS Take one by mouth daily DIEGO GLIPTIN PHOSPHATE 27072466515 Active Mitch Urbina DO Active JANUVIA 100 MG TABS 1/2 by mouth every day DIEGO GLIPTIN PHOSPHATE 76555364801 No Longer Active Bijal Segal RN Active METFORMIN HCL 500 MG TABS 2 by mouth twice daily METFORMIN HCL 28088824666 Active Mitch Urbina DO Active COLCRYS 0.6 MG TABS 1 po q 6 hours prn gout pain 03/02 COLCHICINE 24454738657 No Longer Active Camila Reese Active LISINOPRIL 5 MG TABS 1 by mouth every day LISIN OPRIL 43046935139 No Longer Active Nguyen Perez Active KLOR-CON 20 MEQ PACK Take one by mouth daily 8 POTASSIUM CHLORIDE 42636724938 No Longer Active Nguyen Perez Active FUROSEMIDE 40 MG TABS 1 by mouth daily FUROSEMI DE 09525532597 No Longer Active Nguyen Perez Active PROVIGIL 200 MG TABS 1/2 tab po q day MODAFINIL 25411 348150 Active Mitch Urbina DO Active PROVIGIL 100 MG TABS Take one by mouth daily MO DAFINIL 94742856499 No Longer Active Mitch Urbina DO Active BACTRIM DS 800-160 MG TAB 1 tab by mouth twice daily 2 TRIMETHOPRIM-SULFAMETHOXAZOLE 10178764135 No Longer Active Renan Hays MD Active FAMOTIDINE 20 MG TABS by mouth twice a day FAMOTI DINE 78106805138 Active Mitch Urbina DO Active ADULT ASPIRIN LOW STRENGTH 81 MG TBDP 1 by mouth every daily ASPIRIN 77156636910 Active Mitch Urbina DO Active METOPROLOL TARTRATE 50 MG TABS 1 by mouth twice daily METOPROLOL TARTRATE 91286129457 Active Mitch Urbina DO Active BACTRIM DS 800-160 MG TAB 1 tab by mouth twice daily 2 BACTRIM DS 800-160 MG TAB 344728 TRIMETHOPRIM-SULFAMETHOXAZOLE Inac tive PROVIGIL 100 MG TABS Take one by mouth daily 4 PROVIGIL 100 MG TABS 416858 MODAFINIL Inactive FUROSEMIDE 40 MG TABS 1 by mouth daily FU ROSEMIDE 40 MG TABS 788977 FUROSEMIDE Inactive KLOR-CON 20 MEQ PACK Take one by mouth daily 8 KLOR-CON 20 MEQ PACK POTASSIUM CHLORIDE Inactive LISINOPRIL 5 MG TABS 1 by mouth every day LISINOPRIL 5 MG TABS 436445 LISINOPRIL Inactive COLCRYS 0.6 MG TABS 1 po q 6 hours prn gout pain 03/02 COLCRYS 0.6 MG TABS 400814 COLCHICINE Inactive JANUVIA 100 MG TABS 1/2 by mouth every day JANUVI A 100 MG TABS SITAGLIPTIN PHOSPHATE Inactive SIMVASTATIN 20 MG TABS 1 tab daily at bedtime SIMVASTATIN 20 MG TABS 595187 SIMVASTATIN Inactive COUMADIN 6 MG TABS 1 by mouth every other day COUMADIN 6 MG TABS 292805 WARFARIN SODIUM Inactive COUMADIN 5 MG TABS 1 by mouth every other day COUMADIN 5 MG TABS 664950 WARFARIN SODIUM Inactive LISINOPRIL 20 MG TABS 1 tab po at HS KOKI NOPRIL 20 MG TABS 043240 LISINOPRIL Inactive LISINOPRIL-HYDROCHLOROTHIAZIDE 20-12.5 MG TABS 1 tab by mouth da [place] LISINOPRIL-HYDROCHLOROTHIAZIDE 20-12.5 MG TABS 896256 LISINOPRIL-HYDROCHLOROTHIAZIDE Inactive POLYTRIM 86077-3.1 UNIT/ML-% SOLN 1 drop in affected e ye every 3 hours while awake x 7 days POLYTRIM 24642-4.1 UNIT/ML-% SOLN 02891 7 POLYMYXIN B-TRIMETHOPRIM Inactive COUMADIN 4 MG TABS 1 tablet daily COUMADIN 4 MG TABS 728840 WARFARIN SODIUM Inactive CLONIDINE HCL 0.1 MG TABS 1 po bid 7 days, then 1/2 tab po b id 7 days CLONIDINE HCL 0.1 MG TABS 731061 CLONIDINE HCL I nactive ALLOPURINOL 300 MG TABS Take 1 tablet by mouth daily 2 ALLOPURINOL 300 MG TABS 263490 ALLOPURINOL Inactive MECLIZINE HCL 25 MG TAB 1 po tid 3 days, then 1/2 tab tid 3 days MECLIZINE HCL 25 MG TAB 597501 MECLIZINE HCL Inactive AMLODIPINE BESYLATE 5 MG TABS 1 tablet by mouth daily AMLODIPINE BESYLATE 5 MG TABS 899544 AMLODIPINE BESYLATE Inactive KEFLEX 500 MG CAP 1 po qid KEFLEX 500 MG CAP 30 9114 CEPHALEXIN Inactive LOVENOX 100 MG/ML SC SOLN One injection twice a day 09/15/15 LOVENOX 100 MG/ML SC SOLN 252558 ENOXAPARIN SODIUM Inactive Vital Signs Date Name [...] - Chem istry sodium, serum 139 mmol/L 312-689 9083/07/17 urea nitrogen, blood 29 mg/dL 7-18 creatinine, serum 1.24 mg/dL 0.60-1.30 potassium, serum 4.2 mmol/L 3.5-5.2 chloride, serum 102 mmol/L 98-107 carbon dioxide, venous blood 28.9 mmol/L 21.0-32 .0 blood glucose 211 mg/dL 65-110 calcium, serum 10.6 mg/dL 8.5-10.1 sodium, serum 141 mmol/L 806-940 1910/08/07 urea nitrogen, blood 26 mg/dL 7-18 creatinine, [...] ... - Chemistry sodium, serum 144 mmol/L 291-513 7754/06/12 creatinine, serum 1.32 mg/dL 0.55-1.30 alanine aminotransferase [...] 1.0-3.5 Encounters Code Encounter Date Provider Facility CPT-13936 Level 3 Est. Patient 18:25:53 CDT Mitch luis [facility] CPT-17473 Level 3 Est. Patient 19:43:34 CDT Mitch luis [facility] CPT-42005 Level 4 Est. Patient 09:30:18 CDT Mitch luis [facility] CPT-54479 Level 3 Est. Patient 15:10:14 CDT Joe Jason anh [facility] CPT-79654 Level 3 Est. Patient 15:03:46 CDT Joe Jason anh [facility] CPT-10789 Level 3 Est. Patient 14:21:06 CDT Mitch luis [facility] CPT-34918 Level 3 Est. Patient 14:52:06 CDT Joe Jason kamara [facility] CPT-71317 Level 3 Est. Patient 09:34:30 PROPERTY SITE MANAGER Mitch luis [facility] CPT-02820 Level 3 Est. Patient 09:37:15 CDT Mitch luis [facility] CPT-86632 Level 3 Est. Patient 17:01:00 PROPERTY SITE MANAGER Mitch luis [facility] CPT-43749 Level 3 Est. Patient 13:53:19 PROPERTY SITE MANAGER Mitch luis [facility] CPT-48002 Level 3 Est. Patient 19:19:37 PROPERTY SITE MANAGER Mitch luis [facility] CPT-00836 Level 3 Est. Patient 13:25:53 PROPERTY SITE MANAGER Tavo toure MD [facility] CPT-39847 Level 3 Est. Patient 18:17:28 CDT Mitch luis [facility] CPT-45299 Level 3 Est. Patient 15:22:57 CDT Mitch luis [facility] CPT-03712 Level 3 Est. Patient 18:21:50 CDT Mitch luis [facility] CPT-02996 Level 3 Est. Patient 18:20:38 CDT Mitch Arnol luis [facility] CPT-14617 Level 3 Est. Patient 15:37:55 CDT Mitch luis [facility] CPT-61911 Level 2 Est. Patient 15:54:44 CDT Carmine benton MD [facility] CPT-95328 Level 3 Est. Patient 21:46:01 PROPERTY SITE MANAGER Mitch luis [facility] CPT-95079 Level 3 Est. Patient 22:15:50 CDT Mitch luis [facility] CPT-81958 Level 3 Est. Patient 10:48:15 CDT Mitch luis [facility] CPT-89641 Level 3 Est. Patient 23:20:57 CDT Tavo toure MD [facility] CPT-40316 Level 3 Est. Patient 16:26:13 CDT Mitch Arnol luis [facility] Procedures Code Procedure Name Date Entry Date Standard Desc ription CPT-72601 Venipuncture Draw Fee 09:26:17 CDT CPT-56762 PT/INR - LAB USE ONLY 13:32:49 PROPERTY SITE MANAGER CPT-40682 Venipuncture Draw Fee 13:32:49 PROPERTY SITE MANAGER CPT-86942 PT/INR - LAB USE ONLY 10:34:49 PROPERTY SITE MANAGER CPT-97783 Venipuncture Draw Fee 10:34:48 PROPERTY SITE MANAGER CPT-20481 PT/INR - LAB USE ONLY 09:22:03 PROPERTY SITE MANAGER CPT-28928 Venipuncture Draw Fee 09:22:02 PROPERTY SITE MANAGER CPT-87130 Hemoccult IFOBT - LAB USE ONLY 10:27:22 CDT CPT-48271 Venipuncture Draw Fee 08:27:08 CDT CPT-56309 Liver Profile - LAB USE ONLY 08:27:07 CDT 2 CPT-79074 Microalbumin - LAB USE ONLY 08:27:07 CDT 20 25/05/09 CPT-84736 PT/INR - LAB USE ONLY 08:27:07 CDT CPT-43940 HGBA1C - LAB USE ONLY 08:27:07 CDT CPT-37724 CBC - LAB USE ONLY 08:27:07 CDT CPT-71940 Venipuncture Draw Fee 11:09:14 CDT CPT-52375 Venipuncture Draw Fee 08:32:21 PROPERTY SITE MANAGER CPT-56188 Venipuncture Draw Fee 09:38:56 PROPERTY SITE MANAGER CPT-38667 No Charge Offi Visit 21:36:07 CDT 1 CPT-90237 Venipuncture Draw Fee 10:13:28 PROPERTY SITE MANAGER CPT-76992 Venipuncture Draw Fee 08:31:11 CDT CPT-60085 Aspir/Inject Med Joint 18:17:28 CDT CPT-87480 Venipuncture Draw Fee 10:13:30 CDT CPT-99696 Venipuncture Draw Fee 08:31:43 PROPERTY SITE MANAGER CPT-JTINJ Joint Injection 18:34:50 CDT CPT-53727 Knee 3V 12:25:09 CDT CPT-92463 Venipuncture Draw Fee 12:15:57 CDT CPT-060 Medical Surveillance Exam 21:31:43 CDT 2011 CPT-76839 Venipuncture Draw Fee 08:32:05 PROPERTY SITE MANAGER CPT-OV Office Visit 18:19:06 CDT
--- OUTSIDE RECORDS SUMMARY | 2020-01-18 13:03 | XMS REPORT | Clinical Summary ---
Author Author Admin, Mitch Loen Organization [facility] Address Unknown Phone Unavailable Allergies, Adverse Reactions, Alerts Allergy Name Reaction Description Start Date Severity Status Pr ovider PENICILLIN HIVES Critical Active Mitch Urbina DO Conditions or Problems Problem Name Problem Code Onset Date Status Entry Date Provider Comment Standard Description Annotate HYPERTENSION 401.9 Active Mitch Uribna DO U nspecified essential hypertension CELLULITIS, GROIN, [...] of unspecified type of vessel, [place] or graft EDEMA 782.3 Resolved Mitch Urbina [...] by mouth twice a day 2017 FAMOTIDINE 60252064655 No Longer Active Mitch Urbina DO Active COLCRYS 0.6 MG ORAL TABLET 1 tab qid prn gout C OLCHICINE 84785435301 No Longer Active Mitch Urbina DO Active GLIMEPIRIDE 2 MG ORAL TABLET 1 po BID GLIMEPIRID E 18227532266 Active Renee Oconnor LPN Active KEFLEX 500 MG ORAL CAPSULE 1 po qid CEPHALEXI N 50026138819 No Longer Active Mitch Urbina DO Active LOSARTAN POTASSIUM 100 MG ORAL TABLET 1 pill by mouth daily, for blood pressure LOSARTAN POTASSIUM 18610998157 Active Mitch Urbina DO Active AMLODIPINE BESYLATE 5 MG ORAL TABLET 1 tablet by mouth daily 201 01/20/04 AMLODIPINE BESYLATE 32684050774 No Longer Active Joe fulton APRN Active MITIGARE 0.6 MG ORAL CAPSULE 2 capsules at onset of go ut pain, then take one capsule at 1 hour if symptoms persist. COLCHICINE 59 539224942 Active Mitch Urbina DO Active COUMADIN 1 MG ORAL TABLET 2 tabs orally daily with the 5mg tab to equal 7mg daily WARFARIN SODIUM 88289608708 Active Ana Ocampo Active INVOKANA 100 MG ORAL TABLET 1 tablet orally daily CANAGLIFLOZIN 47310093220 Active Mitch Urbina DO Active MINOXIDIL 2.5 MG ORAL TABLET 1 tablet daily for high blood press ure MINOXIDIL 46671811557 Active Renee Oconnor LPN Active MECLIZINE HCL 25 MG ORAL TABLET 1 po tid 3 days, then 1/2 ta b tid 3 days MECLIZINE HCL 55123520478 No Longer Active Corey SEGURA Active ALLOPURINOL 300 MG ORAL TABLET Take 1 tablet by mouth daily 2012 ALLOPURINOL 23875729491 No Longer Active Corey SEGURA Active CLONIDINE HCL 0.1 MG ORAL TABLET 1 po bid 7 days, then 1/2 t ab po bid 7 days CLONIDINE HCL 44528125983 No Longer Active Corey SEGURA Active COUMADIN 5 MG ORAL TABLET 1 tab PO daily WARFAR IN SODIUM 11951465270 Active Mitch Urbina DO Active COUMADIN 4 MG ORAL TABLET 1 tablet daily WARFAR IN SODIUM 74501500439 No Longer Active Corey SEGURA Active POLYTRIM 02775-6.1 UNIT/ML-% OPHTHALMIC SOLUTION 1 rui p in affected eye every 3 hours while awake x 7 days POLYMYXIN B-TRIMETHOP RIM 25290657537 No Longer Active Corey SEGURA Active LOSARTAN POTASSIUM-HCTZ 100-12.5 MG ORAL TABLET 1 by m outh daily for high blood pressure LOSARTAN POTASSIUM-HCTZ 49511109899 No Longer A ctive Mitch Urbina DO Active LISINOPRIL-HYDROCHLOROTHIAZIDE 20-12.5 MG ORAL TABLET 1 tab by m outh daily LISINOPRIL-HYDROCHLOROTHIAZIDE 83514544580 No Longer Active Mitch Urbina DO Active LISINOPRIL 20 MG ORAL TABLET 1 tab po at HS LIS INOPRIL 78746961568 No Longer Active Mitch Urbina DO Active COUMADIN 5 MG ORAL TABLET 1 by mouth every other day 2 WARFARIN SODIUM 72422601363 No Longer Active Mitch Urbina DO Active COUMADIN 6 MG ORAL TABLET 1 by mouth every other day 2 WARFARIN SODIUM 23367317791 No Longer Active Mitch Urbina DO Active SIMVASTATIN 40 MG ORAL TABLET 1 tab daily at bedtime SIMVASTATIN 43096888186 Active Renee Oconnor LPN Active SIMVASTATIN 20 MG ORAL TABLET 1 tab daily at bedtime 2 SIMVASTATIN 60078890542 No Longer Active Mitch Urbina DO Active LOVENOX 100 MG/ML SUBCUTANEOUS SOLUTION One injection twice a da y ENOXAPARIN SODIUM 21016145318 No Longer Active Carmnie Yusuf MD Active JANUVIA 50 MG ORAL TABLET Take one by mouth daily SITAGLIPTIN PHOSPHATE 77426318206 Active Mitch Urbina DO Active JANUVIA 100 MG ORAL TABLET 1/2 by mouth every day 2011 SITAGLIPTIN PHOSPHATE 72988289449 No Longer Active Bijal Segal RN Acti ve METFORMIN HCL 500 MG ORAL TABLET 2 by mouth twice daily METFORMIN HCL 51493189951 Active Mitch Urbina DO Active COLCRYS 0.6 MG ORAL TABLET 1 po q 6 hours prn gout pain COLCHICINE 86397768837 No Longer Active Camila Reese Active LISINOPRIL 5 MG ORAL TABLET 1 by mouth every day 11/17 LISINOPRIL 09806658704 No Longer Active Nguyen Perez Active KLOR-CON 20 MEQ ORAL PACKET Take one by mouth daily 09/10/08 POTASSIUM CHLORIDE 69860155667 No Longer Active Nguyen Perez Active FUROSEMIDE 40 MG ORAL TABLET 1 by mouth daily F UROSEMIDE 86912860834 No Longer Active Nguyen Perez Active PROVIGIL 200 MG ORAL TABLET 1/2 tab po q day MODA FINIL 65886633177 Active Renee Oconnor LPN Active PROVIGIL 100 MG ORAL TABLET Take one by mouth daily 08/20/04 MODAFINIL 83943737736 No Longer Active Mitch Urbina DO Active BACTRIM DS 800-160 MG ORAL TABLET 1 tab by mouth twice daily 201 10/19/09 TRIMETHOPRIM-SULFAMETHOXAZOLE 46808317910 No Longer Active Elian Hays MD Active ADULT ASPIRIN LOW STRENGTH 81 MG ORAL TABLET DISINTEGR ATING 1 by mouth every daily ASPIRIN 21362107369 Active Mitch Urbina DO Ac tive METOPROLOL TARTRATE 50 MG ORAL TABLET 1 by mouth twice daily METOPROLOL TARTRATE 04086419689 Active Mitch Urbina DO Active BACTRIM DS 800-160 MG ORAL TABLET 1 tab by mouth twice daily 201 10/19/09 BACTRIM DS 800-160 MG ORAL TABLET 476424 TRIMETHOPRIM-SULFAMETHOXAZOLE Inactive PROVIGIL 100 MG ORAL TABLET Take one by mouth daily 08/20/04 PROVIGIL 100 MG ORAL TABLET 356219 MODAFINIL Inactive FUROSEMIDE 40 MG ORAL TABLET 1 by mouth daily FUROSEMIDE 40 MG ORAL TABLET 636235 FUROSEMIDE Inactive KLOR-CON 20 MEQ ORAL PACKET Take one by mouth daily 09/10/08 KLOR- CON 20 MEQ ORAL PACKET 9300108 POTASSIUM CHLORIDE Inactive LISINOPRIL 5 MG ORAL TABLET 1 by mouth every day 11/17 LISINOPRIL 5 MG ORAL TABLET 033922 LISINOPRIL Inactive COLCRYS 0.6 MG ORAL TABLET 1 po q 6 hours prn gout pain COLCRYS 0.6 MG ORAL TABLET 751441 COLCHICINE Inactive JANUVIA 100 MG ORAL TABLET 1/2 by mouth every day 2011 JANUVIA 100 MG ORAL TABLET SITAGLIPTIN PHOSPHATE Inactive SIMVASTATIN 20 MG ORAL TABLET 1 tab daily at bedtime 2 SIMVASTATIN 20 MG ORAL TABLET 063155 SIMVASTATIN Inactive COUMADIN 6 MG ORAL TABLET 1 by mouth every other day COUMADIN 6 MG ORAL TABLET 180706 WARFARIN SODIUM Inactive COUMADIN 5 MG ORAL TABLET 1 by mouth every other day COUMADIN 5 MG ORAL TABLET 287560 WARFARIN SODIUM Inactive LISINOPRIL 20 MG ORAL TABLET 1 tab po at HS LISINOPRIL 20 MG ORAL TABLET 678481 LISINOPRIL Inactive LISINOPRIL-HYDROCHLOROTHIAZIDE 20-12.5 MG ORAL TABLET 1 tab by m outh daily LISINOPRIL-HYDROCHLOROTHIAZIDE 20-12.5 MG ORAL TABLET 331531 LISINOPRIL-HYDROCHLOROTHIAZIDE Inactive POLYTRIM 17367-9.1 UNIT/ML-% OPHTHALMIC SOLUTION 1 rui p in affected eye every 3 hours while awake x 7 days POLYTRIM 1000 0-0.1 UNIT/ML-% OPHTHALMIC SOLUTION 607780 POLYMYXIN B-TRIMETHOPRIM Inactive COUMADIN 4 MG ORAL TABLET 1 tablet daily COUMADIN 4 MG ORAL TABLET 094909 WARFARIN SODIUM Inactive CLONIDINE HCL 0.1 MG ORAL TABLET 1 po bid 7 days, then 1/2 t ab po bid 7 days CLONIDINE HCL 0.1 MG ORAL TABLET 350389 CLONIDIN E HCL Inactive ALLOPURINOL 300 MG ORAL TABLET Take 1 tablet by mouth daily 2012 ALLOPURINOL 300 MG ORAL TABLET 043512 ALLOPURINOL I nactive MECLIZINE HCL 25 MG ORAL TABLET 1 po tid 3 days, then 1/2 ta b tid 3 days MECLIZINE HCL 25 MG ORAL TABLET 355555 MECLIZINE HCL Inactive AMLODIPINE BESYLATE 5 MG ORAL TABLET 1 tablet by mouth daily 201 01/20/04 AMLODIPINE BESYLATE 5 MG ORAL TABLET 838417 AMLODIPINE BESYLATE Inactive KEFLEX 500 MG ORAL CAPSULE 1 po qid K EFLEX 500 MG ORAL CAPSULE 756431 CEPHALEXIN Inactive COLCRYS 0.6 MG ORAL TABLET 1 tab qid prn gout COLCRYS 0.6 MG ORAL TABLET 890801 COLCHICINE Inactive FAMOTIDINE 20 MG ORAL TABLET by mouth twice a day 2017 FAMOTIDINE 20 MG ORAL TABLET 645420 FAMOTIDINE Inactive LOVENOX 100 MG/ML SUBCUTANEOUS SOLUTION One injection twice a da y LOVENOX 100 MG/ML SUBCUTANEOUS SOLUTION 696772 ENOXAPAR IN SODIUM Inactive Vital Signs Date [...] - Chem istry sodium, serum 139 mmol/L 767-682 0038/07/17 potassium, serum 4.2 mmol/L 3.5-5.2 chloride, serum 102 mmol/L 98-107 carbon dioxide, venous blood 28.9 mmol/L 21.0-32 .0 blood glucose 211 mg/dL 65-110 calcium, serum 10.6 mg/dL 8.5-10.1 urea nitrogen, blood 29 mg/dL 7-18 creatinine, serum 1.24 mg/dL 0.60-1.30 sodium, serum 141 mmol/L 023-739 9583/08/07 potassium, serum 4.5 mmol/L 3.5-5.2 chloride, serum [...] HGBA1C - Chemistry cholesterol, serum 136 mg/dL 486-539 3264/12/06 triglyceride, serum, fasting 247 mg/dL 30-200 HDL cholesterol, serum 41 mg/dL 32-60 LDL cholesterol, serum 46 mg/dL 0-130 aspartate aminotransferase (SGOT), serum 22 U/L 15-37 alanine aminotransferase (SGPT), serum 30 U/L 12-78 bilirubin, serum, total 0.80 mg/dL 0.00-1.00 hemoglobin A1C, blood, as % of total hemoglobin 6.4 % 4.3-6.0 Encounters Code Encounter Date Provider Facility CPT-23856 Level 3 Est. Patient 18:25:53 CDT Mitch luis [facility] CPT-38364 Level 3 Est. Patient 19:43:34 CDT Mitch W L ee [facility] CPT-72965 Level 4 Est. Patient 09:30:18 CDT Mitch W L ee [facility] CPT-14288 Level 3 Est. Patient 15:10:14 CDT Devonjustincarlitos kamara [facility]-91542 Level 3 Est. Patient 15:03:46 CDT Devonjustincarlitos kamara [facility] CPT-72117 Level 3 Est. Patient 14:21:06 CDT Mitch W L ee [facility] CPT-20998 Level 3 Est. Patient 14:52:06 CDT Joe Jason kamara [facility] [place]-43327 Level 3 Est. Patient 09:34:30 [employer]ARD [employer]ER Mitch Ambrose L ee [facility] CPT-88122 Level 3 Est. Patient 09:37:15 CDT Mitch Ambrose L janelle [facility]-75868 Level 3 Est. Patient 17:01:00 [employer]ARD [employer]ER Mitch W L janelle [facility] CPT-38083 Level 3 Est. Patient 13:53:19 [employer]CHARD SPR[employer]ER Mitch W L janelle [facility] CPT-12498 Level 3 Est. Patient 19:19:37 [employer]CHARD [employer]ER Mitch W L janelle [facility] CPT-94291 Level 3 Est. Patient 13:25:53 [employer]ARD [employer]ER Tavo toure MD [facility]-21339 Level 3 Est. Patient 18:17:28 CDT Mitch W L ee [facility] CPT-98761 Level 3 Est. Patient 15:22:57 CDT Mitch W L ee [facility]-94356 Level 3 Est. Patient 18:21:50 CDT Mitch W L ee [facility] CPT-53578 Level 3 Est. Patient 18:20:38 CDT Mitch W L ee [facility] CPT-80809 Level 3 Est. Patient 15:37:55 CDT Mitch luis [facility] CPT-04227 Level 2 Est. Patient 15:54:44 CDT Carmine benton MD [facility] CPT-50215 Level 3 Est. Patient 21:46:01 [employer]CHARD [employer]ER Mitch Ambrose Nona janelle [facility] CPT-11120 Level 3 Est. Patient 22:15:50 CDT Mitch luis [facility] CPT-82460 Level 3 Est. Patient 10:48:15 CDT Mitch luis [facility] CPT-94799 Level 3 Est. Patient 23:20:57 CDT Tavo toure MD [facility] CPT-28940 Level 3 Est. Patient 16:26:13 CDT Mitch luis [facility] Procedures Code Procedure Name Date Entry Date Standard Desc ription CPT-JTINJ Asp/Joint Injection 18:47:02 CDT CPT-81881 Venipuncture Draw Fee 09:26:17 CDT CPT-30014 PT/INR - LAB USE ONLY 13:32:49 [employer] CPT-43349 Venipuncture Draw Fee 13:32:49 [employer] CPT-97615 PT/INR - LAB USE ONLY 10:34:49 [employer] CPT-04949 Venipuncture Draw Fee 10:34:48 [employer] CPT-33315 PT/INR - LAB USE ONLY 09:22:03 [employer] CPT-95145 Venipuncture Draw Fee 09:22:02 [employer] CPT-22165 Hemoccult IFOBT - LAB USE ONLY 10:27:22 CDT CPT-01517 Venipuncture Draw Fee 08:27:08 CDT CPT-07731 Liver Profile - LAB USE ONLY 08:27:07 CDT 2 CPT-41097 Microalbumin - LAB USE ONLY 08:27:07 CDT 20 25/05/09 CPT-57534 PT/INR - LAB USE ONLY 08:27:07 CDT CPT-83460 HGBA1C - LAB USE ONLY 08:27:07 CDT CPT-18393 CBC - LAB USE ONLY 08:27:07 CDT CPT-96069 Venipuncture Draw Fee 11:09:14 CDT CPT-41687 Venipuncture Draw Fee 08:32:21 [employer] CPT-16485 Venipuncture Draw Fee 09:38:56 [employer] CPT-97177 No Charge Offi Visit 21:36:07 CDT 1 CPT-75429 Venipuncture Draw Fee 10:13:28 [employer] CPT-71807 Venipuncture Draw Fee 08:31:11 CDT CPT-63715 Aspir/Inject Med Joint 18:17:28 CDT CPT-50151 Venipuncture Draw Fee 10:13:30 CDT CPT-85790 Venipuncture Draw Fee 08:31:43 [employer] CPT-JTINJ Joint Injection 18:34:50 CDT CPT-83952 Knee 3V 12:25:09 CDT CPT-70654 Venipuncture Draw Fee 12:15:57 CDT CPT-060 Medical Surveillance Exam 21:31:43 CDT 2011 CPT-28976 Venipuncture Draw Fee 08:32:05 [employer]ARD SPR[employer]ER CPT-OV Office Visit 18:19:06 CDT
--- OUTSIDE RECORDS SUMMARY | 2020-01-18 13:03 | XMS REPORT | Clinical Summary ---
[...] Coronary atherosclerosis of unspecified type of vessel, [place] or graft EDEMA 782.3 Resolved Mitch Urbina [...] ( 6mg total ) 2015 WARFARIN SODIUM 36719457629 Active Domi Rivera MA Acti ve INVOKANA 100 MG ORAL TABS 1 tablet orally daily CANAGLIFLOZIN 76972648290 Active Kathie Juan RPT,RMA Active MINOXIDIL 2.5 MG TABS 1 tablet daily for high blood pressure 10/23 MINOXIDIL 69200686051 Active Mitch Urbina DO Active AMLODIPINE BESYLATE 5 MG TABS 1 tablet by mouth daily AMLODIPINE BESYLATE 91126417455 Active Domi Rivera MA Active MECLIZINE HCL 25 MG TAB 1 po tid 3 days, then 1/2 tab tid 3 days MECLIZINE HCL 58775530406 No Longer Active Corey SEGURA Active ALLOPURINOL 300 MG TABS Take 1 tablet by mouth daily 2 ALLOPURINOL 67467342838 No Longer Active Corey SEGURA Activ e CLONIDINE HCL 0.1 MG TABS 1 po bid 7 days, then 1/2 tab po b id 7 days CLONIDINE HCL 80663960642 No Longer Active Corey SEGURA Active COUMADIN 5 MG TABS 1 tab PO daily WARFARIN SODIUM 73976003697 Active Mitch Urbina DO Active COUMADIN 4 MG TABS 1 tablet daily WARFARIN SODI UM 75423431896 No Longer Active Corey SEGURA Active POLYTRIM 06774-2.1 UNIT/ML-% SOLN 1 drop in affected e ye every 3 hours while awake x 7 days POLYMYXIN B-TRIMETHOPRIM 76609772788 N o Longer Active Corey SEGURA Active LOSARTAN POTASSIUM-HCTZ 100-12.5 MG TABS 1 by mouth da [place] for high blood pressure LOSARTAN POTASSIUM-HCTZ 19672914115 Active Domi Rivera MA Active LISINOPRIL-HYDROCHLOROTHIAZIDE 20-12.5 MG TABS 1 tab by mouth da rocky LISINOPRIL-HYDROCHLOROTHIAZIDE 10519998114 No Longer Active Mitch luis DO Active LISINOPRIL 20 MG TABS 1 tab po at HS LISINOPRIL 61816768098 No Longer Active Mitch Urbina DO Active COUMADIN 5 MG TABS 1 by mouth every other day WARFARIN SODIUM 76566215131 No Longer Active Mitch Urbina DO Active COUMADIN 6 MG TABS 1 by mouth every other day WARFARIN SODIUM 98711982062 No Longer Active Mitch Urbina DO Active COLCRYS 0.6 MG TABS 1 tab qid prn gout COLCHICINE 41091252432 Active Corey SEGURA Active SIMVASTATIN 40 MG TABS 1 tab daily at bedtime S IMVASTATIN 63360426228 Active Domi Rivera MA Active SIMVASTATIN 20 MG TABS 1 tab daily at bedtime S IMVASTATIN 33285464964 No Longer Active Mitch Urbina DO Active LOVENOX 100 MG/ML SC SOLN One injection twice a day 09/15/15 ENOXAPARIN SODIUM 51122925294 No Longer Active Carmine Navarrete ctive JANUVIA 50 MG TABS Take one by mouth daily DIEGO GLIPTIN PHOSPHATE 66874095060 Active Domi Rivera MA Active JANUVIA 100 MG TABS 1/2 by mouth every day DIEGO GLIPTIN PHOSPHATE 37720224435 No Longer Active Bijal Segal RN Active METFORMIN HCL 500 MG TABS 2 by mouth twice daily METFORMIN HCL 81844710124 Active Kathie Juan RPT,RMA Active GLIMEPIRIDE 4 MG TABS 1 tab po bid GLIMEPIRIDE 177450 97957 Active Kathie Juan RPT,RMA Active COLCRYS 0.6 MG TABS 1 po q 6 hours prn gout pain 03/02 COLCHICINE 11133038756 No Longer Active Camila Reees Active LISINOPRIL 5 MG TABS 1 by mouth every day LISIN OPRIL 76656689098 No Longer Active Nguyenmolly Perez Active KLOR-CON 20 MEQ PACK Take one by mouth daily 8 POTASSIUM CHLORIDE 94728502375 No Longer Active Nguyenmolly Perez Active FUROSEMIDE 40 MG TABS 1 by mouth daily FUROSEMI DE 31074872200 No Longer Active Nguyenmolly Perez Active PROVIGIL 200 MG TABS 1/2 tab po q day MODAFINIL 52998 928433 Active Domi Rivera MA Active PROVIGIL 100 MG TABS Take one by mouth daily MO DAFINIL 99424094597 No Longer Active Mitch Urbina DO Active BACTRIM DS 800-160 MG TAB 1 tab by mouth twice daily 2 TRIMETHOPRIM-SULFAMETHOXAZOLE 35853836165 No Longer Active Renan Hays MD Active FAMOTIDINE 20 MG TABS by mouth twice a day FAMOTI DINE 07812586543 Active Mitch Urbina DO Active ADULT ASPIRIN LOW STRENGTH 81 MG TBDP 1 by mouth every daily ASPIRIN 97964752779 Active Mitch Urbina DO Active METOPROLOL TARTRATE 50 MG TABS 1 by mouth twice daily METOPROLOL TARTRATE 97315934156 Active Domi Rivera MA Active BACTRIM DS 800-160 MG TAB 1 tab by mouth twice daily 2 BACTRIM DS 800-160 MG TAB 478737 TRIMETHOPRIM-SULFAMETHOXAZOLE Inac tive PROVIGIL 100 MG TABS Take one by mouth daily 4 PROVIGIL 100 MG TABS 397544 MODAFINIL Inactive FUROSEMIDE 40 MG TABS 1 by mouth daily FU ROSEMIDE 40 MG TABS 922042 FUROSEMIDE Inactive KLOR-CON 20 MEQ PACK Take one by mouth daily 8 KLOR-CON 20 MEQ PACK 178687 POTASSIUM CHLORIDE Inactive LISINOPRIL 5 MG TABS 1 by mouth every day LISINOPRIL 5 MG TABS 044087 LISINOPRIL Inactive COLCRYS 0.6 MG TABS 1 po q 6 hours prn gout pain 03/02 COLCRYS 0.6 MG TABS 699514 COLCHICINE Inactive JANUVIA 100 MG TABS 1/2 by mouth every day JANUVI A 100 MG TABS SITAGLIPTIN PHOSPHATE Inactive SIMVASTATIN 20 MG TABS 1 tab daily at bedtime SIMVASTATIN 20 MG TABS 936659 SIMVASTATIN Inactive COUMADIN 6 MG TABS 1 by mouth every other day COUMADIN 6 MG TABS 874223 WARFARIN SODIUM Inactive COUMADIN 5 MG TABS 1 by mouth every other day COUMADIN 5 MG TABS 357244 WARFARIN SODIUM Inactive LISINOPRIL 20 MG TABS 1 tab po at HS KOKI NOPRIL 20 MG TABS 033483 LISINOPRIL Inactive LISINOPRIL-HYDROCHLOROTHIAZIDE 20-12.5 MG TABS 1 tab by mouth da [place] LISINOPRIL-HYDROCHLOROTHIAZIDE 20-12.5 MG TABS 223837 LISINOPRIL-HYDROCHLOROTHIAZIDE Inactive POLYTRIM 90958-1.1 UNIT/ML-% SOLN 1 drop in affected e ye every 3 hours while awake x 7 days POLYTRIM 99290-0.1 UNIT/ML-% SOLN 08488 7 POLYMYXIN B-TRIMETHOPRIM Inactive COUMADIN 4 MG TABS 1 tablet daily COUMADIN 4 MG TABS 634346 WARFARIN SODIUM Inactive CLONIDINE HCL 0.1 MG TABS 1 po bid 7 days, then 1/2 tab po b id 7 days CLONIDINE HCL 0.1 MG TABS 951562 CLONIDINE HCL I nactive ALLOPURINOL 300 MG TABS Take 1 tablet by mouth daily 2 ALLOPURINOL 300 MG TABS 679838 ALLOPURINOL Inactive MECLIZINE HCL 25 MG TAB 1 po tid 3 days, then 1/2 tab tid 3 days MECLIZINE HCL 25 MG TAB 115109 MECLIZINE HCL Inactive LOVENOX 100 MG/ML SC SOLN One injection twice a day 09/15/15 LOVENOX 100 MG/ML SC SOLN 358466 ENOXAPARIN SODIUM Inactive Vital Signs Date Name [...] Ag - Chemistry sodium, serum 141 mmol/L 346-670 1038/07/06 potassium, serum 4.4 mmol/L 3.5-5.2 chloride, serum [...] - Chem istry sodium, serum 136 mmol/L 506-703 3956/01/14 carbon dioxide, venous blood 25.4 mmol/L 21.0-32 [...] 7.0 % 4.3-6.0 cholesterol, serum 120 mg/dL 483-080 3278/07/06 triglyceride, serum, fasting 186 mg/dL 30-200 HDL [...] 1.0-3.5 Encounters Code Encounter Date Provider Facility CPT-08435 Level 3 Est. 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 Patient 09:37:15 CDT Mitch luis [facility] CPT-55694 Level 3 Est. 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 Patient 13:53:19 REAL ESTATE ADMINISTRATIVE ASSISTANT Mitch luis [facility] CPT-84126 Level 3 Est. 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 Patient 13:25:53 REAL ESTATE ADMINISTRATIVE ASSISTANT Tavo toure MD [facility] CPT-16602 Level 3 Est. Patient 18:17:28 CDT Mitch luis [facility] CPT-32579 Level 3 Est. Patient 15:22:57 CDT Mitch luis [facility] CPT-94200 Level 3 Est. Patient 18:21:50 CDT Mitch luis [facility] CPT-07683 Level 3 Est. Patient 18:20:38 CDT Mitch luis [facility] CPT-03339 Level 3 Est. Patient 15:37:55 CDT Mitch luis [facility] CPT-94215 Level 2 Est. Patient 15:54:44 CDT Carmine benton MD [facility] CPT-94828 Level 3 Est. 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 Patient 22:15:50 CDT Mitch luis [facility] CPT-93460 Level 3 Est. Patient 10:48:15 CDT Mitch luis [facility] CPT-89542 Level 3 Est. Patient 23:20:57 CDT Tavo toure MD [facility] CPT-78227 Level 3 Est. Patient 16:26:13 CDT Mitch luis [facility] Procedures Code Procedure Name Date Entry Date Standard Desc ription CPT-14950 Venipuncture Draw Fee 08:32:21 REAL ESTATE ADMINISTRATIVE ASSISTANT CPT-31302 Venipuncture Draw Fee 09:38:56 REAL ESTATE ADMINISTRATIVE ASSISTANT CPT-14181 No Charge Offi Visit 21:36:07 CDT 1 CPT-04363 Venipuncture Draw Fee 10:13:28 REAL ESTATE ADMINISTRATIVE ASSISTANT CPT-21888 Venipuncture Draw Fee 08:31:11 CDT CPT-37542 Aspir/Inject Med Joint 18:17:28 CDT CPT-48344 Venipuncture Draw Fee 10:13:30 CDT CPT-83069 Venipuncture Draw Fee 08:31:43 REAL ESTATE ADMINISTRATIVE ASSISTANT CPT-JTINJ Joint Injection 18:34:50 CDT CPT-69995 Knee 3V 12:25:09 CDT CPT-22634 Venipuncture Draw Fee 12:15:57 CDT CPT-060 Medical Surveillance Exam 21:31:43 CDT 2011 CPT-43546 Venipuncture Draw Fee 08:32:05 REAL ESTATE ADMINISTRATIVE ASSISTANT CPT-OV Office Visit 18:19:06 CDT
--- OUTSIDE RECORDS SUMMARY | 2020-01-18 13:03 | XMS REPORT | Clinical Summary ---
Author Author Admin, Mitch Leon Organization [facility] Address Unknown Phone Unavailable Allergies, Adverse [...] DO Hypoglycemia, unspecified GOUT, WRIST 274.9 Active Mtich Urbina DO Gout, unspecified LONG-TERM (CURRENT) USE OF ANTICOAGULANTS V58.61 Resol kylah Mitch Urbina DO Long-term (current) use of anticoagulant s HEALTH MAINTENANCE EXAM V70.0 Active Mitch Meraz DO Routine general medical examination at a health care facility CORONARY HEART DISEASE 414.00 Active Mitch Urbina DO Coronary atherosclerosis of unspecified type of vessel, [place] or graft EDEMA 782.3 Resolved Mitch Urbina [...] ( 6mg total ) 2015 WARFARIN SODIUM 79856189467 Active Jannette Alcides RMA Act juan INVOKANA 100 MG ORAL TABS 1 tablet orally daily CANAGLIFLOZIN 34997420820 Active Kathie Juan RPT,RMA Active MINOXIDIL 2.5 MG TABS 1 tablet daily for high blood pressure 10/23 MINOXIDIL 53490294698 Active Mitch Urbina DO Active AMLODIPINE BESYLATE 5 MG TABS 1 tablet by mouth daily AMLODIPINE BESYLATE 39603387539 Active Domi Rivera MA Active MECLIZINE HCL 25 MG TAB 1 po tid 3 days, then 1/2 tab tid 3 days MECLIZINE HCL 55971077704 No Longer Active Corey SEGURA Active ALLOPURINOL 300 MG TABS Take 1 tablet by mouth daily 2 ALLOPURINOL 13452492170 No Longer Active Corey SEGURA Activ e CLONIDINE HCL 0.1 MG TABS 1 po bid 7 days, then 1/2 tab po b id 7 days CLONIDINE HCL 43141871487 No Longer Active Corey SEGURA Active COUMADIN 5 MG TABS 1 tab PO daily WARFARIN SODIUM 72268935389 Active Domi Rivera MA Active COUMADIN 4 MG TABS 1 tablet daily WARFARIN SODI UM 74836267102 No Longer Active Corey SEGURA Active POLYTRIM 13938-7.1 UNIT/ML-% SOLN 1 drop in affected e ye every 3 hours while awake x 7 days POLYMYXIN B-TRIMETHOPRIM 17914266012 N o Longer Active Corey SEGURA Active LOSARTAN POTASSIUM-HCTZ 100-12.5 MG TABS 1 by mouth da rocky for high blood pressure LOSARTAN POTASSIUM-HCTZ 71436070923 Active Domi Rivera MA Active LISINOPRIL-HYDROCHLOROTHIAZIDE 20-12.5 MG TABS 1 tab by mouth da rocky LISINOPRIL-HYDROCHLOROTHIAZIDE 98216567799 No Longer Active Mitch ulis DO Active LISINOPRIL 20 MG TABS 1 tab po at HS LISINOPRIL 98766938584 No Longer Active Mitch Urbina DO Active COUMADIN 5 MG TABS 1 by mouth every other day WARFARIN SODIUM 98467105007 No Longer Active Mitch Urbina DO Active COUMADIN 6 MG TABS 1 by mouth every other day WARFARIN SODIUM 82380066691 No Longer Active Mitch Urbina DO Active COLCRYS 0.6 MG TABS 1 tab qid prn gout COLCHICINE 09081053379 Active Corey SEGURA Active SIMVASTATIN 40 MG TABS 1 tab daily at bedtime S IMVASTATIN 87958410942 Active Domi Rivera MA Active SIMVASTATIN 20 MG TABS 1 tab daily at bedtime S IMVASTATIN 47084496250 No Longer Active Mitch Urbina DO Active LOVENOX 100 MG/ML SC SOLN One injection twice a day 09/15/15 ENOXAPARIN SODIUM 20946639754 No Longer Active Carmine Navarrete ctive JANUVIA 50 MG TABS Take one by mouth daily DIEGO GLIPTIN PHOSPHATE 70772467207 Active Domi Rivera MA Active JANUVIA 100 MG TABS 1/2 by mouth every day DIEGO GLIPTIN PHOSPHATE 34210627744 No Longer Active Bijal Segal RN Active METFORMIN HCL 500 MG TABS 2 by mouth twice daily METFORMIN HCL 17425282753 Active Domi Rivera MA Active GLIMEPIRIDE 4 MG TABS 1 tab po bid GLIMEPIRIDE 978151 64237 Active Domi Rivera MA Active COLCRYS 0.6 MG TABS 1 po q 6 hours prn gout pain 03/02 COLCHICINE 44080977582 No Longer Active Camila Reese Active LISINOPRIL 5 MG TABS 1 by mouth every day LISIN OPRIL 51526636203 No Longer Active Nguyen Perez Active KLOR-CON 20 MEQ PACK Take one by mouth daily 8 POTASSIUM CHLORIDE 46619720857 No Longer Active Nguyen Perez Active FUROSEMIDE 40 MG TABS 1 by mouth daily FUROSEMI DE 78183648316 No Longer Active Nguyen Perez Active PROVIGIL 200 MG TABS 1/2 tab po q day MODAFINIL 17392 654384 Active Domi Rivera MA Active PROVIGIL 100 MG TABS Take one by mouth daily MO DAFINIL 26633293988 No Longer Active Mitch Urbina DO Active BACTRIM DS 800-160 MG TAB 1 tab by mouth twice daily 2 TRIMETHOPRIM-SULFAMETHOXAZOLE 67819730843 No Longer Active Renan Hays MD Active FAMOTIDINE 20 MG TABS by mouth twice a day FAMOTI DINE 69192548387 Active Mitch Urbina DO Active ADULT ASPIRIN LOW STRENGTH 81 MG TBDP 1 by mouth every daily ASPIRIN 04340509397 Active Mitch Urbina DO Active METOPROLOL TARTRATE 50 MG TABS 1 by mouth twice daily METOPROLOL TARTRATE 08351060881 Active Domi Rivera MA Active BACTRIM DS 800-160 MG TAB 1 tab by mouth twice daily 2 BACTRIM DS 800-160 MG TAB 899583 TRIMETHOPRIM-SULFAMETHOXAZOLE Inac tive PROVIGIL 100 MG TABS Take one by mouth daily 4 PROVIGIL 100 MG TABS 314430 MODAFINIL Inactive FUROSEMIDE 40 MG TABS 1 by mouth daily FU ROSEMIDE 40 MG TABS 113847 FUROSEMIDE Inactive KLOR-CON 20 MEQ PACK Take one by mouth daily 8 KLOR-CON 20 MEQ PACK 130389 POTASSIUM CHLORIDE Inactive LISINOPRIL 5 MG TABS 1 by mouth every day LISINOPRIL 5 MG TABS 581943 LISINOPRIL Inactive COLCRYS 0.6 MG TABS 1 po q 6 hours prn gout pain 03/02 COLCRYS 0.6 MG TABS 110928 COLCHICINE Inactive JANUVIA 100 MG TABS 1/2 by mouth every day JANUVI A 100 MG TABS SITAGLIPTIN PHOSPHATE Inactive SIMVASTATIN 20 MG TABS 1 tab daily at bedtime SIMVASTATIN 20 MG TABS 945061 SIMVASTATIN Inactive COUMADIN 6 MG TABS 1 by mouth every other day COUMADIN 6 MG TABS 498430 WARFARIN SODIUM Inactive COUMADIN 5 MG TABS 1 by mouth every other day COUMADIN 5 MG TABS 500304 WARFARIN SODIUM Inactive LISINOPRIL 20 MG TABS 1 tab po at HS KOKI NOPRIL 20 MG TABS 836725 LISINOPRIL Inactive LISINOPRIL-HYDROCHLOROTHIAZIDE 20-12.5 MG TABS 1 tab by mouth da [place] LISINOPRIL-HYDROCHLOROTHIAZIDE 20-12.5 MG TABS 655945 LISINOPRIL-HYDROCHLOROTHIAZIDE Inactive POLYTRIM 22667-6.1 UNIT/ML-% SOLN 1 drop in affected e ye every 3 hours while awake x 7 days POLYTRIM 90678-0.1 UNIT/ML-% SOLN 90079 7 POLYMYXIN B-TRIMETHOPRIM Inactive COUMADIN 4 MG TABS 1 tablet daily COUMADIN 4 MG TABS 329791 WARFARIN SODIUM Inactive CLONIDINE HCL 0.1 MG TABS 1 po bid 7 days, then 1/2 tab po b id 7 days CLONIDINE HCL 0.1 MG TABS 623856 CLONIDINE HCL I nactive ALLOPURINOL 300 MG TABS Take 1 tablet by mouth daily 2 ALLOPURINOL 300 MG TABS 662094 ALLOPURINOL Inactive MECLIZINE HCL 25 MG TAB 1 po tid 3 days, then 1/2 tab tid 3 days MECLIZINE HCL 25 MG TAB 745232 MECLIZINE HCL Inactive LOVENOX 100 MG/ML SC SOLN One injection twice a day 09/15/15 LOVENOX 100 MG/ML SC SOLN 895697 ENOXAPARIN SODIUM Inactive Vital Signs Date Name [...] Chart Maintenance: Hemoccult added to [facility] - Chemistry occult blood, stool (E&M) [...] Ag - Chemistry sodium, serum 141 mmol/L 060-881 7028/07/06 potassium, serum 4.4 mmol/L 3.5-5.2 chloride, serum [...] - Chem istry sodium, serum 136 mmol/L 486-428 5485/01/14 carbon dioxide, venous blood 25.4 mmol/L 21.0-32 [...] 7.0 % 4.3-6.0 cholesterol, serum 120 mg/dL 024-288 3765/07/06 triglyceride, serum, fasting 186 mg/dL 30-200 HDL [...] 1.0-3.5 Encounters Code Encounter Date Provider Facility CPT-01933 Level 3 Est. Patient 09:34:30 MARKETING SPECIALIST Mitch Ambrose L janelle [facility] CPT-35332 Level 3 Est. Patient 09:37:15 CDT Mitch W L janelle [facility] CPT-67755 Level 3 Est. Patient 17:01:00 MARKETING SPECIALIST Mitch W L janelle [facility] CPT-44673 Level 3 Est. Patient 13:53:19 MARKETING SPECIALIST Mitch W L janelle [facility] CPT-70576 Level 3 Est. Patient 19:19:37 MARKETING SPECIALIST Mitch W L janelle [facility] CPT-62596 Level 3 Est. Patient 13:25:53 MARKETING SPECIALIST Tavo toure MD [facility] CPT-65575 Level 3 Est. Patient 18:17:28 CDT Mitch W L janelle [facility] CPT-56319 Level 3 Est. Patient 15:22:57 CDT Mitch Arnol L janelle [facility] CPT-25265 Level 3 Est. Patient 18:21:50 CDT Mitch W L ee [facility] CPT-28309 Level 3 Est. Patient 18:20:38 CDT Mitch W L ee [facility] CPT-73848 Level 3 Est. Patient 15:37:55 CDT Mitch W L ee [facility] CPT-99954 Level 2 Est. Patient 15:54:44 CDT Carmine benton MD [facility] CPT-03625 Level 3 Est. Patient 21:46:01 MARKETING SPECIALIST Mitch W L ee [facility] CPT-85593 Level 3 Est. Patient 22:15:50 CDT Mitch luis [facility] CPT-66910 Level 3 Est. Patient 10:48:15 CDT Mitch luis [facility] CPT-15762 Level 3 Est. Patient 23:20:57 CDT Tavo toure MD [facility] CPT-36882 Level 3 Est. Patient 16:26:13 CDT Mitch luis [facility] Procedures Code Procedure Name Date Entry Date Standard Desc ription CPT-32921 Venipuncture Draw Fee 08:32:21 MARKETING SPECIALIST CPT-04468 Venipuncture Draw Fee 09:38:56 MARKETING SPECIALIST CPT-82572 No Charge Offi Visit 21:36:07 CDT 1 CPT-23550 Venipuncture Draw Fee 10:13:28 MARKETING SPECIALIST CPT-26568 Venipuncture Draw Fee 08:31:11 CDT CPT-13798 Aspir/Inject Med Joint 18:17:28 CDT CPT-84265 Venipuncture Draw Fee 10:13:30 CDT CPT-82083 Venipuncture Draw Fee 08:31:43 MARKETING SPECIALIST CPT-JTINJ Joint Injection 18:34:50 CDT CPT-86368 Knee 3V 12:25:09 CDT CPT-34810 Venipuncture Draw Fee 12:15:57 CDT CPT-060 Medical Surveillance Exam 21:31:43 CDT 2011 CPT-17612 Venipuncture Draw Fee 08:32:05 MARKETING SPECIALIST CPT-OV Office Visit 18:19:06 CDT
--- OUTSIDE RECORDS SUMMARY | 2020-01-18 13:04 | XMS REPORT | Clinical Summary ---
[...] Coronary atherosclerosis of unspecified type of vessel, [place] or graft EDEMA 782.3 Active Mitch Urbina [...] 1 tablet by mouth daily AMLODIPINE BESYLATE 12380566784 Active Mitch Urbina DO Active MECLIZINE HCL 25 MG TAB 1 po tid 3 days, then 1/2 tab tid 3 days MECLIZINE HCL 59479868734 No Longer Active Corey SEGURA Active ALLOPURINOL 300 MG TABS Take 1 tablet by mouth daily 2 ALLOPURINOL 73070653118 No Longer Active Corey SEGURA Activ e CLONIDINE HCL 0.1 MG TABS 1 po bid 7 days, then 1/2 tab po b id 7 days CLONIDINE HCL 14126313509 No Longer Active Corey SEGURA Active COUMADIN 5 MG TABS 1 tab PO daily WARFARIN SODIUM 27071762729 Active Mitch Urbina DO Active COUMADIN 4 MG TABS 1 tablet daily WARFARIN SODI UM 29200095807 No Longer Active Corey SEGURA Active POLYTRIM 55359-2.1 UNIT/ML-% SOLN 1 drop in affected e ye every 3 hours while awake x 7 days POLYMYXIN B-TRIMETHOPRIM 92505663653 N o Longer Active Corey SEGURA Active LOSARTAN POTASSIUM-HCTZ 100-12.5 MG TABS 1 by mouth [place] for high blood pressure LOSARTAN POTASSIUM-HCTZ 44122444801 Active Stephy Urbina DO Active LISINOPRIL-HYDROCHLOROTHIAZIDE 20-12.5 MG TABS 1 tab by mouth da [place] LISINOPRIL-HYDROCHLOROTHIAZIDE 09502648792 No Longer Active Mitch luis DO Active LISINOPRIL 20 MG TABS 1 tab po at HS LISINOPRIL 19009648036 No Longer Active Mitch Urbina DO Active COUMADIN 5 MG TABS 1 by mouth every other day WARFARIN SODIUM 88548308520 No Longer Active Mitch Urbina DO Active COUMADIN 6 MG TABS 1 by mouth every other day WARFARIN SODIUM 56788342130 No Longer Active Mitch Urbina DO Active COLCRYS 0.6 MG TABS 1 tab qid prn gout COLCHICINE 77187517498 Active Corey SEGURA Active SIMVASTATIN 40 MG TABS 1 tab daily at bedtime S IMVASTATIN 52402898663 Active Mitch Urbina DO Active SIMVASTATIN 20 MG TABS 1 tab daily at bedtime S IMVASTATIN 50956698850 No Longer Active Mitch Urbina DO Active LOVENOX 100 MG/ML SC SOLN One injection twice a day 09/15/15 ENOXAPARIN SODIUM 91622606204 No Longer Active Carmine Navarrete ctive JANUVIA 50 MG TABS Take one by mouth daily DIEGO GLIPTIN PHOSPHATE 69866225087 Active Domi Rivera MA Active JANUVIA 100 MG TABS 1/2 by mouth every day DIEGO GLIPTIN PHOSPHATE 48433195038 No Longer Active Bijal Segal RN Active METFORMIN HCL 500 MG TABS 2 by mouth twice daily METFORMIN HCL 27305110568 Active Mitch Urbina DO Active GLIMEPIRIDE 4 MG TABS 1 tab po bid GLIMEPIRIDE 359790 13495 Active Mitch Urbina DO Active COLCRYS 0.6 MG TABS 1 po q 6 hours prn gout pain 03/02 COLCHICINE 07598540205 No Longer Active Camila Reese Active LISINOPRIL 5 MG TABS 1 by mouth every day LISIN OPRIL 25011931735 No Longer Active Nguyenmolly Perez Active KLOR-CON 20 MEQ PACK Take one by mouth daily 8 POTASSIUM CHLORIDE 81732066870 No Longer Active Nguyen Perez Active FUROSEMIDE 40 MG TABS 1 by mouth daily FUROSEMI DE 09922191156 No Longer Active Nguyen Perez Active PROVIGIL 200 MG TABS 1/2 tab po q day MODAFINIL 59662 031759 Active Mitch Urbina DO Active PROVIGIL 100 MG TABS Take one by mouth daily MO DAFINIL 81636654309 No Longer Active Mitch Urbina DO Active BACTRIM DS 800-160 MG TAB 1 tab by mouth twice daily 2 TRIMETHOPRIM-SULFAMETHOXAZOLE 87351278728 No Longer Active Renan Hays MD Active FAMOTIDINE 20 MG TABS by mouth twice a day FAMOTI DINE 37082385950 Active Mitch W [place] DO Active ADULT ASPIRIN LOW STRENGTH 81 MG TBDP 1 by mouth every daily ASPIRIN 75311471297 Active Mitch Urbina DO Active METOPROLOL TARTRATE 50 MG TABS 1 by mouth twice daily METOPROLOL TARTRATE 70135343601 Active Curly Coker MD Active BACTRIM DS 800-160 MG TAB 1 tab by mouth twice daily 2 BACTRIM DS 800-160 MG TAB TRIMETHOPRIM-SULFAMETHOXAZOLE Inac tive PROVIGIL 100 MG TABS Take one by mouth daily 4 PROVIGIL 100 MG TABS 701903 MODAFINIL Inactive FUROSEMIDE 40 MG TABS 1 by mouth daily FU ROSEMIDE 40 MG TABS 925008 FUROSEMIDE Inactive KLOR-CON 20 MEQ PACK Take one by mouth daily 8 KLOR-CON 20 MEQ PACK 042343 POTASSIUM CHLORIDE Inactive LISINOPRIL 5 MG TABS 1 by mouth every day LISINOPRIL 5 MG TABS 027220 LISINOPRIL Inactive COLCRYS 0.6 MG TABS 1 po q 6 hours prn gout pain 03/02 COLCRYS 0.6 MG TABS 191623 COLCHICINE Inactive JANUVIA 100 MG TABS 1/2 by mouth every day JANUVI A 100 MG TABS SITAGLIPTIN PHOSPHATE Inactive SIMVASTATIN 20 MG TABS 1 tab daily at bedtime SIMVASTATIN 20 MG TABS 950461 SIMVASTATIN Inactive COUMADIN 6 MG TABS 1 by mouth every other day COUMADIN 6 MG TABS 051497 WARFARIN SODIUM Inactive COUMADIN 5 MG TABS 1 by mouth every other day COUMADIN 5 MG TABS 864178 WARFARIN SODIUM Inactive LISINOPRIL 20 MG TABS 1 tab po at HS KOKI NOPRIL 20 MG TABS 993416 LISINOPRIL Inactive LISINOPRIL-HYDROCHLOROTHIAZIDE 20-12.5 MG TABS 1 tab by mouth da [place] LISINOPRIL-HYDROCHLOROTHIAZIDE 20-12.5 MG TABS 442315 LISINOPRIL-HYDROCHLOROTHIAZIDE Inactive POLYTRIM 38730-6.1 UNIT/ML-% SOLN 1 drop in affected e ye every 3 hours while awake x 7 days POLYTRIM 35393-7.1 UNIT/ML-% SOLN 54345 7 POLYMYXIN B-TRIMETHOPRIM Inactive COUMADIN 4 MG TABS 1 tablet daily COUMADIN 4 MG TABS 184666 WARFARIN SODIUM Inactive CLONIDINE HCL 0.1 MG TABS 1 po bid 7 days, then 1/2 tab po b id 7 days CLONIDINE HCL 0.1 MG TABS 320674 CLONIDINE HCL I nactive ALLOPURINOL 300 MG TABS Take 1 tablet by mouth daily 2 ALLOPURINOL 300 MG TABS 996898 ALLOPURINOL Inactive MECLIZINE HCL 25 MG TAB 1 po tid 3 days, then 1/2 tab tid 3 days MECLIZINE HCL 25 MG TAB 474394 MECLIZINE HCL Inactive LOVENOX 100 MG/ML SC SOLN One injection twice a day 09/15/15 LOVENOX 100 MG/ML SC SOLN 967831 ENOXAPARIN SODIUM Inactive Vital Signs Date Name [...] Ag - Chemistry sodium, serum 141 mmol/L 298-634 2502/07/06 potassium, serum 4.4 mmol/L 3.5-5.2 chloride, serum [...] Panel, HGBA1 C, Lipid Panel - Chemistry blood glucose 181 mg/dL 65-110 carbon dioxide, venous blood 33.0 mmol/L 21.0-32 .0 chloride, serum 100 mmol/L 98-107 potassium, serum 4.4 mmol/L 3.5-5.2 sodium, serum 137 mmol/L 345-172 6951/11/14 urea nitrogen, blood 28 mg/dL 7-18 creatinine, serum 1.30 mg/dL 0.60-1.30 alanine aminotransferase (SGPT), serum 38 U/L aspartate aminotransferase (SGOT), serum 34 U/L 15-37 calcium, serum 10.4 mg/dL 8.5-10.1 bilirubin, serum, total 0.90 mg/dL 0.00-1.00 hemoglobin A1C, blood, as % of total hemoglobin 8.0 % 4.3-6.0 cholesterol, serum 130 mg/dL 643-696 8769/11/14 triglyceride, serum, fasting 288 mg/dL 30-200 HDL cholesterol, serum 33 mg/dL 32-96 LDL cholesterol, serum 39 mg/dL 0-130 Lab Report: Comp. Metabolic Panel, HGBA1 C, Lipid Panel, Prothrombin Time - Chemistry sodium, serum 136 mmol/L 862-946 2113/12/02 potassium, serum 4.4 mmol/L 3.5-5.2 chloride, serum [...] 7.6 % 4.3-6.0 cholesterol, serum 117 mg/dL 191-528 3017/12/02 triglyceride, serum, fasting 226 mg/dL 30-200 HDL [...] 7.0 % 4.3-6.0 cholesterol, serum 120 mg/dL 679-306 4142/07/06 triglyceride, serum, fasting 186 mg/dL 30-200 HDL [...] 1.0-3.5 Encounters Code Encounter Date Provider Facility CPT-59753 Level 3 Est. Patient 09:37:15 CDT [facility] CPT-00569 Level 3 Est. Patient 17:01:00 IS ANALYST Mitch W L janelle [facility] CPT-87926 Level 3 Est. Patient 13:53:19 IS ANALYST Mitch W L janelle [facility] CPT-43052 Level 3 Est. Patient 19:19:37 IS ANALYST Mitch W L janelle [facility] CPT-77394 Level 3 Est. Patient 13:25:53 IS ANALYST Tavo toure MD [facility] CPT-64312 Level 3 Est. Patient 18:17:28 CDT Mitch Ambrose L janelle [facility] CPT-89403 Level 3 Est. Patient 15:22:57 CDT Mitch Ambrose L janelle [facility] CPT-02871 Level 3 Est. Patient 18:21:50 CDT Mitch W L janelle [facility] CPT-38042 Level 3 Est. Patient 18:20:38 CDT Mitch W L janelle [facility] CPT-69376 Level 3 Est. Patient 15:37:55 CDT Mitch W L janelle [facility] CPT-09641 Level 2 Est. Patient 15:54:44 CDT Carmine benton MD [facility]-00520 Level 3 Est. Patient 21:46:01 IS ANALYST Mitch luis [facility] CPT-85611 Level 3 Est. Patient 22:15:50 CDT Mitch luis [facility] CPT-81633 Level 3 Est. Patient 10:48:15 CDT Mitch luis [facility] CPT-75146 Level 3 Est. Patient 23:20:57 CDT Tavo toure MD [facility] CPT-22980 Level 3 Est. Patient 16:26:13 CDT Mitch luis [facility] Procedures Code Procedure Name Date Entry Date Standard Desc ription CPT-08084 No Charge Offi Visit 21:36:07 CDT 1 CPT-71743 Venipuncture Draw Fee 10:13:28 IS ANALYST CPT-14866 Venipuncture Draw Fee 08:31:11 CDT CPT-58461 Aspir/Inject Med Joint 18:17:28 CDT CPT-18504 Venipuncture Draw Fee 10:13:30 CDT CPT-21257 Venipuncture Draw Fee 08:31:43 IS ANALYST CPT-JTINJ Joint Injection 18:34:50 CDT CPT-34829 Knee 3V 12:25:09 CDT CPT-51434 Venipuncture Draw Fee 12:15:57 CDT CPT-060 Medical Surveillance Exam 21:31:43 CDT 2011 CPT-75877 Venipuncture Draw Fee 08:32:05 IS ANALYST CPT-OV Office Visit 18:19:06 CDT
--- OUTSIDE RECORDS SUMMARY | 2020-01-18 13:04 | XMS REPORT | Clinical Summary ---
Author Author Admin, Mitch Leon Organization [facility] [employer] Address Unknown Phone Unavailable Allergies, Adverse Reactions, [...] of unspecified type of vessel, [place] or graft EDEMA 782.3 Resolved Mitch Urbina [...] colon CELLULITIS, GROIN, LEFT ICD-682.2 Inactive Zoya Ubrina [...] 1 tablet by mouth daily AMLODIPINE BESYLATE 72880643361 No Longer Active Joe Williamson APRN Active MITIGARE 0.6 MG ORAL CAPS 2 capsules at onset of gout pain, then take one capsule at 1 hour if symptoms persist. COLCHICINE 59 000123394 Active Mitch Urbina DO Active COUMADIN 1 MG TAB 2 tabs orally daily with the 5mg tab to equal 7mg daily WARFARIN SODIUM 10252074206 Active Mitch Urbina DO Active COLCRYS 0.6 MG TABS 1 tab qid prn gout COLCHICINE 29530194148 Active Norma Cazares Active INVOKANA 100 MG ORAL TABS 1 tablet orally daily CANAGLIFLOZIN 97941149466 Active Brenda Gaymerman Active MINOXIDIL 2.5 MG TABS 1 tablet daily for high blood pressure 10/23 MINOXIDIL 98993372637 Active Ana Wallace Active MECLIZINE HCL 25 MG TAB 1 po tid 3 days, then 1/2 tab tid 3 days MECLIZINE HCL 05365477638 No Longer Active Corey SEGURA Active ALLOPURINOL 300 MG TABS Take 1 tablet by mouth daily 2 ALLOPURINOL 61175135878 No Longer Active Corey SEGURA Activ e CLONIDINE HCL 0.1 MG TABS 1 po bid 7 days, then 1/2 tab po b id 7 days CLONIDINE HCL 00044967442 No Longer Active Corey SEGURA Active COUMADIN 5 MG TABS 1 tab PO daily WARFARIN SODIUM 10785088856 Active Mitch Urbina DO Active COUMADIN 4 MG TABS 1 tablet daily WARFARIN SODI UM 51095586749 No Longer Active Corey SEGURA Active POLYTRIM 87674-9.1 UNIT/ML-% SOLN 1 drop in affected e ye every 3 hours while awake x 7 days POLYMYXIN B-TRIMETHOPRIM 02285765982 N o Longer Active Corey SEGURA Active LOSARTAN POTASSIUM-HCTZ 100-12.5 MG TABS 1 by mouth da [place] for high blood pressure LOSARTAN POTASSIUM-HCTZ 34118969722 Active Stephy Urbina DO Active LISINOPRIL-HYDROCHLOROTHIAZIDE 20-12.5 MG TABS 1 tab by mouth da [place] LISINOPRIL-HYDROCHLOROTHIAZIDE 83664817289 No Longer Active Mitch luis DO Active LISINOPRIL 20 MG TABS 1 tab po at HS LISINOPRIL 41408308432 No Longer Active Mitch Urbina DO Active COUMADIN 5 MG TABS 1 by mouth every other day WARFARIN SODIUM 14714336753 No Longer Active Mitch Urbina DO Active COUMADIN 6 MG TABS 1 by mouth every other day WARFARIN SODIUM 58787061066 No Longer Active Mitch Urbina DO Active SIMVASTATIN 40 MG TABS 1 tab daily at bedtime S IMVASTATIN 07138763817 Active Mitch Urbina DO Active SIMVASTATIN 20 MG TABS 1 tab daily at bedtime S IMVASTATIN 01074636003 No Longer Active Mitch Urbina DO Active LOVENOX 100 MG/ML SC SOLN One injection twice a day 09/15/15 ENOXAPARIN SODIUM 58345445685 No Longer Active Carmine Navarrete ctive JANUVIA 50 MG TABS Take one by mouth daily DIEGO GLIPTIN PHOSPHATE 63739598940 Active Mitch Urbina DO Active JANUVIA 100 MG TABS 1/2 by mouth every day DIEGO GLIPTIN PHOSPHATE 06095832007 No Longer Active Bijal Segal RN Active METFORMIN HCL 500 MG TABS 2 by mouth twice daily METFORMIN HCL 70141745111 Active Mitch Urbina DO Active GLIMEPIRIDE 4 MG TABS 1 tab po bid GLIMEPIRIDE 398813 41452 Active Mitch Urbina DO Active COLCRYS 0.6 MG TABS 1 po q 6 hours prn gout pain 03/02 COLCHICINE 07777302728 No Longer Active Camila Reese Active LISINOPRIL 5 MG TABS 1 by mouth every day LISIN OPRIL 49182645998 No Longer Active Nguyen Perez Active KLOR-CON 20 MEQ PACK Take one by mouth daily 8 POTASSIUM CHLORIDE 73216419910 No Longer Active Nguyen Perez Active FUROSEMIDE 40 MG TABS 1 by mouth daily FUROSEMI DE 02751695942 No Longer Active Nguyen Perez Active PROVIGIL 200 MG TABS 1/2 tab po q day MODAFINIL 87362 979641 Active Kathie Juan RPT,RMA Active PROVIGIL 100 MG TABS Take one by mouth daily MO DAFINIL 60194084775 No Longer Active Mitch Urbina DO Active BACTRIM DS 800-160 MG TAB 1 tab by mouth twice daily 2 TRIMETHOPRIM-SULFAMETHOXAZOLE 12176704831 No Longer Active Renan Hays MD Active FAMOTIDINE 20 MG TABS by mouth twice a day FAMOTI DINE 87115721554 Active Mitch Urbina DO Active ADULT ASPIRIN LOW STRENGTH 81 MG TBDP 1 by mouth every daily ASPIRIN 38438668055 Active Mitch Urbina DO Active METOPROLOL TARTRATE 50 MG TABS 1 by mouth twice daily METOPROLOL TARTRATE 31105926666 Active Mitch Urbina DO Active BACTRIM DS 800-160 MG TAB 1 tab by mouth twice daily 2 BACTRIM DS 800-160 MG TAB 010749 TRIMETHOPRIM-SULFAMETHOXAZOLE Inac tive PROVIGIL 100 MG TABS Take one by mouth daily 4 PROVIGIL 100 MG TABS 787328 MODAFINIL Inactive FUROSEMIDE 40 MG TABS 1 by mouth daily FU ROSEMIDE 40 MG TABS 735232 FUROSEMIDE Inactive KLOR-CON 20 MEQ PACK Take one by mouth daily 8 KLOR-CON 20 MEQ PACK 662893 POTASSIUM CHLORIDE Inactive LISINOPRIL 5 MG TABS 1 by mouth every day LISINOPRIL 5 MG TABS 388256 LISINOPRIL Inactive COLCRYS 0.6 MG TABS 1 po q 6 hours prn gout pain 03/02 COLCRYS 0.6 MG TABS 381103 COLCHICINE Inactive JANUVIA 100 MG TABS 1/2 by mouth every day JANUVI A 100 MG TABS SITAGLIPTIN PHOSPHATE Inactive SIMVASTATIN 20 MG TABS 1 tab daily at bedtime SIMVASTATIN 20 MG TABS 900479 SIMVASTATIN Inactive COUMADIN 6 MG TABS 1 by mouth every other day COUMADIN 6 MG TABS 862698 WARFARIN SODIUM Inactive COUMADIN 5 MG TABS 1 by mouth every other day COUMADIN 5 MG TABS 624210 WARFARIN SODIUM Inactive LISINOPRIL 20 MG TABS 1 tab po at HS KOKI NOPRIL 20 MG TABS 715010 LISINOPRIL Inactive LISINOPRIL-HYDROCHLOROTHIAZIDE 20-12.5 MG TABS 1 tab by mouth da [place] LISINOPRIL-HYDROCHLOROTHIAZIDE 20-12.5 MG TABS 380404 LISINOPRIL-HYDROCHLOROTHIAZIDE Inactive POLYTRIM 07409-2.1 UNIT/ML-% SOLN 1 drop in affected e ye every 3 hours while awake x 7 days POLYTRIM 90236-5.1 UNIT/ML-% SOLN 89969 7 POLYMYXIN B-TRIMETHOPRIM Inactive COUMADIN 4 MG TABS 1 tablet daily COUMADIN 4 MG TABS 677492 WARFARIN SODIUM Inactive CLONIDINE HCL 0.1 MG TABS 1 po bid 7 days, then 1/2 tab po b id 7 days CLONIDINE HCL 0.1 MG TABS 281905 CLONIDINE HCL I nactive ALLOPURINOL 300 MG TABS Take 1 tablet by mouth daily 2 ALLOPURINOL 300 MG TABS 431966 ALLOPURINOL Inactive MECLIZINE HCL 25 MG TAB 1 po tid 3 days, then 1/2 tab tid 3 days MECLIZINE HCL 25 MG TAB 030072 MECLIZINE HCL Inactive AMLODIPINE BESYLATE 5 MG TABS 1 tablet by mouth daily AMLODIPINE BESYLATE 5 MG TABS 440459 AMLODIPINE BESYLATE Inactive LOVENOX 100 MG/ML SC SOLN One injection twice a day 09/15/15 LOVENOX 100 MG/ML SC SOLN 135123 ENOXAPARIN SODIUM Inactive Vital Signs Date Name [...] Range Description Chart Maintenance: [facility] - Chemistry occult blood, stool (E&M) Positive Lab Report: HGBA1C - Chemistry hemoglobin A1C, blood, as % of total hemoglobin 6.6 % 4.3-6.0 Lab Report: Lipid Panel, HEPATIC PANEL, MICROALB/CREAT W/RATIO, HGBA1C, CBC - Chemistry cholesterol, serum 136 mg/dL 776-641 2144/08/09 triglyceride, serum, fasting 187 mg/dL 30-200 HDL [...] 1.0-3.5 Encounters Code Encounter Date Provider Facility CPT-50820 Level 3 Est. Patient 15:10:14 CDT Joe kamara [facility] CPT-73078 Level 3 Est. Patient 15:03:46 CDT Joe kamara [facility] CPT-31987 Level 3 Est. Patient 14:21:06 CDT Mitch luis [facility] CPT-33104 Level 3 Est. Patient 14:52:06 CDT Joe kamara [facility] CPT-98354 Level 3 Est. Patient 09:34:30 [employer] Mitch luis [facility] CPT-14786 Level 3 Est. Patient 09:37:15 CDT Mitch luis [facility] CPT-03949 Level 3 Est. Patient 17:01:00 FIR[employer]LECT[employer] LOC[employer] Mitch luis [facility] CPT-46479 Level 3 Est. Patient 13:53:19 FIRER ELECT[employer]IC LOCOM[employer] Mitch luis [facility] CPT-45533 Level 3 Est. Patient 19:19:37 FIRER ELECT[employer] LOCOM[employer] Mitch luis [facility] CPT-60638 Level 3 Est. Patient 13:25:53 FIR[employer] ELECT[employer]IC LOCOMOTIVE Tavo toure MD [facility] CPT-35339 Level 3 Est. Patient 18:17:28 CDT Mitch luis [facility] CPT-67945 Level 3 Est. Patient 15:22:57 CDT Mitch Arnol luis DO [facility] CPT-51472 Level 3 Est. Patient 18:21:50 CDT Mitch W L janelle [facility] CPT-81979 Level 3 Est. Patient 18:20:38 CDT Mitch Arnol luis [facility] CPT-80787 Level 3 Est. Patient 15:37:55 CDT Mitch Arnol luis [facility] CPT-51860 Level 2 Est. Patient 15:54:44 CDT Carmine benton MD [facility] CPT-88655 Level 3 Est. Patient 21:46:01 [employer] Mitch luis [facility] CPT-12752 Level 3 Est. Patient 22:15:50 CDT Mitch Arnol luis [facility] CPT-19033 Level 3 Est. Patient 10:48:15 CDT Mitch luis [facility] CPT-35953 Level 3 Est. Patient 23:20:57 CDT Tavo toure MD [facility] CPT-72097 Level 3 Est. Patient 16:26:13 CDT Mitch Castellano janelle [facility] Procedures Code Procedure Name Date Entry Date Standard Desc ription CPT-15545 PT/INR - LAB USE ONLY 13:32:49 [employer] CPT-91808 Venipuncture Draw Fee 13:32:49 [employer] CPT-25001 PT/INR - LAB USE ONLY 10:34:49 [employer] CPT-16679 Venipuncture Draw Fee 10:34:48 [employer] CPT-06440 PT/INR - LAB USE ONLY 09:22:03 [employer] CPT-13125 Venipuncture Draw Fee 09:22:02 [employer] CPT-57888 Hemoccult IFOBT - LAB USE ONLY 10:27:22 CDT CPT-39492 Venipuncture Draw Fee 08:27:08 CDT CPT-37793 Liver Profile - LAB USE ONLY 08:27:07 CDT 2 CPT-79139 Microalbumin - LAB USE ONLY 08:27:07 CDT 20 25/05/09 CPT-50055 PT/INR - LAB USE ONLY 08:27:07 CDT CPT-34005 HGBA1C - LAB USE ONLY 08:27:07 CDT CPT-16001 CBC - LAB USE ONLY 08:27:07 CDT CPT-44801 Venipuncture Draw Fee 11:09:14 CDT CPT-44846 Venipuncture Draw Fee 08:32:21 [employer] CPT-39596 Venipuncture Draw Fee 09:38:56 [employer] CPT-06875 No Charge Offi Visit 21:36:07 CDT 1 CPT-71206 Venipuncture Draw Fee 10:13:28 [employer] CPT-99966 Venipuncture Draw Fee 08:31:11 CDT CPT-42674 Aspir/Inject Med Joint 18:17:28 CDT CPT-89389 Venipuncture Draw Fee 10:13:30 CDT CPT-36927 Venipuncture Draw Fee 08:31:43 [employer] CPT-JTINJ Joint Injection 18:34:50 CDT CPT-33426 Knee 3V 12:25:09 CDT CPT-89207 Venipuncture Draw Fee 12:15:57 CDT CPT-060 Medical Surveillance Exam 21:31:43 CDT 2011 CPT-05361 Venipuncture Draw Fee 08:32:05 [employer] CPT-OV Office Visit 18:19:06 CDT
--- OUTSIDE RECORDS SUMMARY | 2020-01-18 13:04 | XMS REPORT | Clinical Summary ---
Author Author Admin, Mitch Leon Organization [facility] Address Unknown Phone Unavailable Allergies, Adverse Reactions, [...] LONG-TERM (CURRENT) USE OF ANTICOAGULANTS V58.61 Resol klyah Mitch Urbina DO Long-term (current) use of [...] tab to equal 7mg daily WARFARIN SODIUM 63754720603 Active Kathie Juan RPT,R MA Active COLCRYS 0.6 MG TABS 1 tab qid prn gout COLCHICINE 13136630926 Active Kathie Juan RPT,RMA Active INVOKANA 100 MG ORAL TABS 1 tablet orally daily CANAGLIFLOZIN 96178534663 Active Kathie Juan RPT,RMA Active MINOXIDIL 2.5 MG TABS 1 tablet daily for high blood pressure 10/23 MINOXIDIL 77598899561 Active Mitch Arnol Carlitos DO Active AMLODIPINE BESYLATE 5 MG TABS 1 tablet by mouth daily AMLODIPINE BESYLATE 68430005868 Active Domi Rivera MA Active MECLIZINE HCL 25 MG TAB 1 po tid 3 days, then 1/2 tab tid 3 days MECLIZINE HCL 27103076178 No Longer Active Corey SEGURA Active ALLOPURINOL 300 MG TABS Take 1 tablet by mouth daily 2 ALLOPURINOL 42075158580 No Longer Active Corey SEGURA Activ e CLONIDINE HCL 0.1 MG TABS 1 po bid 7 days, then 1/2 tab po b id 7 days CLONIDINE HCL 94751892599 No Longer Active Corey SEGURA Active COUMADIN 5 MG TABS 1 tab PO daily WARFARIN SODIUM 76530665656 Active Domi Rivera MA Active COUMADIN 4 MG TABS 1 tablet daily WARFARIN SODI UM 57313271085 No Longer Active Corey SEGURA Active POLYTRIM 95227-9.1 UNIT/ML-% SOLN 1 drop in affected e ye every 3 hours while awake x 7 days POLYMYXIN B-TRIMETHOPRIM 22531463591 N o Longer Active Corey SEGURA Active LOSARTAN POTASSIUM-HCTZ 100-12.5 MG TABS 1 by mouth [place] for high blood pressure LOSARTAN POTASSIUM-HCTZ 07296562832 Active Domi Rivera MA Active LISINOPRIL-HYDROCHLOROTHIAZIDE 20-12.5 MG TABS 1 tab by mouth da rocky LISINOPRIL-HYDROCHLOROTHIAZIDE 14701114931 No Longer Active Mitch luis DO Active LISINOPRIL 20 MG TABS 1 tab po at HS LISINOPRIL 58740174066 No Longer Active Mitch Urbina DO Active COUMADIN 5 MG TABS 1 by mouth every other day WARFARIN SODIUM 21977997964 No Longer Active Mitch Urbina DO Active COUMADIN 6 MG TABS 1 by mouth every other day WARFARIN SODIUM 94557574654 No Longer Active Mitch Urbina DO Active SIMVASTATIN 40 MG TABS 1 tab daily at bedtime S IMVASTATIN 60123110133 Active Domi Rivera MA Active SIMVASTATIN 20 MG TABS 1 tab daily at bedtime S IMVASTATIN 92323534600 No Longer Active Mitch Urbina DO Active LOVENOX 100 MG/ML SC SOLN One injection twice a day 09/15/15 ENOXAPARIN SODIUM 41952039052 No Longer Active Carmine Yusuf MD A ctive JANUVIA 50 MG TABS Take one by mouth daily DIEGO GLIPTIN PHOSPHATE 39039145407 Active Tavo Hilton MD Active JANUVIA 100 MG TABS 1/2 by mouth every day DIEGO GLIPTIN PHOSPHATE 02977702611 No Longer Active Bijal Segal RN Active METFORMIN HCL 500 MG TABS 2 by mouth twice daily METFORMIN HCL 74526928917 Active Mitch Urbina DO Active GLIMEPIRIDE 4 MG TABS 1 tab po bid GLIMEPIRIDE 426244 21440 Active Mitch Urbina DO Active COLCRYS 0.6 MG TABS 1 po q 6 hours prn gout pain 03/02 COLCHICINE 74206759951 No Longer Active Camila Reese Active LISINOPRIL 5 MG TABS 1 by mouth every day LISIN OPRIL 48911303881 No Longer Active Nguyen Perez Active KLOR-CON 20 MEQ PACK Take one by mouth daily 8 POTASSIUM CHLORIDE 37977034084 No Longer Active Nguyen Perez Active FUROSEMIDE 40 MG TABS 1 by mouth daily FUROSEMI DE 82731143313 No Longer Active Nguyen Perez Active PROVIGIL 200 MG TABS 1/2 tab po q day MODAFINIL 08774 097847 Active Curly Coker MD Active PROVIGIL 100 MG TABS Take one by mouth daily MO DAFINIL 62780914207 No Longer Active Mitch Urbina DO Active BACTRIM DS 800-160 MG TAB 1 tab by mouth twice daily 2 TRIMETHOPRIM-SULFAMETHOXAZOLE 34104920126 No Longer Active Renan Hays MD Active FAMOTIDINE 20 MG TABS by mouth twice a day FAMOTI DINE 16652979470 Active Mitch Urbina DO Active ADULT ASPIRIN LOW STRENGTH 81 MG TBDP 1 by mouth every daily ASPIRIN 66104103981 Active Mitch Urbina DO Active METOPROLOL TARTRATE 50 MG TABS 1 by mouth twice daily METOPROLOL TARTRATE 80413328972 Active Domi Rivera MA Active BACTRIM DS 800-160 MG TAB 1 tab by mouth twice daily 2 BACTRIM DS 800-160 MG TAB 883689 TRIMETHOPRIM-SULFAMETHOXAZOLE Inac tive PROVIGIL 100 MG TABS Take one by mouth daily 4 PROVIGIL 100 MG TABS 903570 MODAFINIL Inactive FUROSEMIDE 40 MG TABS 1 by mouth daily FU ROSEMIDE 40 MG TABS 035483 FUROSEMIDE Inactive KLOR-CON 20 MEQ PACK Take one by mouth daily 8 KLOR-CON 20 MEQ PACK 693091 POTASSIUM CHLORIDE Inactive LISINOPRIL 5 MG TABS 1 by mouth every day LISINOPRIL 5 MG TABS 800291 LISINOPRIL Inactive COLCRYS 0.6 MG TABS 1 po q 6 hours prn gout pain 03/02 COLCRYS 0.6 MG TABS 266508 COLCHICINE Inactive JANUVIA 100 MG TABS 1/2 by mouth every day JANUVI A 100 MG TABS SITAGLIPTIN PHOSPHATE Inactive SIMVASTATIN 20 MG TABS 1 tab daily at bedtime SIMVASTATIN 20 MG TABS 404868 SIMVASTATIN Inactive COUMADIN 6 MG TABS 1 by mouth every other day COUMADIN 6 MG TABS 599474 WARFARIN SODIUM Inactive COUMADIN 5 MG TABS 1 by mouth every other day COUMADIN 5 MG TABS 687496 WARFARIN SODIUM Inactive LISINOPRIL 20 MG TABS 1 tab po at HS KOKI NOPRIL 20 MG TABS 122116 LISINOPRIL Inactive LISINOPRIL-HYDROCHLOROTHIAZIDE 20-12.5 MG TABS 1 tab by mouth da [place] LISINOPRIL-HYDROCHLOROTHIAZIDE 20-12.5 MG TABS 364685 LISINOPRIL-HYDROCHLOROTHIAZIDE Inactive POLYTRIM 96312-4.1 UNIT/ML-% SOLN 1 drop in affected e ye every 3 hours while awake x 7 days POLYTRIM 95768-8.1 UNIT/ML-% SOLN 41578 7 POLYMYXIN B-TRIMETHOPRIM Inactive COUMADIN 4 MG TABS 1 tablet daily COUMADIN 4 MG TABS 253323 WARFARIN SODIUM Inactive CLONIDINE HCL 0.1 MG TABS 1 po bid 7 days, then 1/2 tab po b id 7 days CLONIDINE HCL 0.1 MG TABS 150682 CLONIDINE HCL I nactive ALLOPURINOL 300 MG TABS Take 1 tablet by mouth daily 2 ALLOPURINOL 300 MG TABS 606986 ALLOPURINOL Inactive MECLIZINE HCL 25 MG TAB 1 po tid 3 days, then 1/2 tab tid 3 days MECLIZINE HCL 25 MG TAB 896894 MECLIZINE HCL Inactive LOVENOX 100 MG/ML SC SOLN One injection twice a day 20 09/15/15 LOVENOX 100 MG/ML SC SOLN 951003 ENOXAPARIN SODIUM Inactive Vital Signs Date Name [...] - Chem istry sodium, serum 136 mmol/L 118-610 1891/01/14 carbon dioxide, venous blood 25.4 mmol/L 21.0-32 [...] CBC - Chemistry cholesterol, serum 136 mg/dL 149-847 7724/08/09 triglyceride, serum, fasting 187 mg/dL 30-200 HDL [...] 1.0-3.5 Encounters Code Encounter Date Provider Facility CPT-18502 Level 3 Est. Patient 09:34:30 CODING TECH Mitch luis [facility] CPT-53526 Level 3 Est. Patient 09:37:15 CDT Mitch luis [facility] CPT-86577 Level 3 Est. Patient 17:01:00 CODING TECH Mitch luis [facility] CPT-75352 Level 3 Est. Patient 13:53:19 CODING TECH Mitch luis [facility] CPT-44604 Level 3 Est. Patient 19:19:37 CODING TECH Mitch luis [facility] CPT-64131 Level 3 Est. Patient 13:25:53 CODING TECH Tavo toure MD [facility] CPT-25040 Level 3 Est. Patient 18:17:28 CDT Mitch luis [facility] CPT-72618 Level 3 Est. Patient 15:22:57 CDT Mitch luis [facility] CPT-61999 Level 3 Est. Patient 18:21:50 CDT Mitch luis [facility] CPT-95419 Level 3 Est. Patient 18:20:38 CDT Mitch luis [facility] CPT-15500 Level 3 Est. Patient 15:37:55 CDT Mitch luis [facility] CPT-63659 Level 2 Est. Patient 15:54:44 CDT Carmine benton MD [facility]-91166 Level 3 Est. Patient 21:46:01 CODING TECH Mitch luis [facility] CPT-01894 Level 3 Est. Patient 22:15:50 CDT Mitch luis [facility] CPT-99523 Level 3 Est. Patient 10:48:15 CDT Mitch luis [facility] CPT-59310 Level 3 Est. Patient 23:20:57 CDT Tavo toure MD [facility]-18359 Level 3 Est. Patient 16:26:13 CDT Mitch Arnol luis [facility] Procedures Code Procedure Name Date Entry Date Standard Desc ription CPT-79221 Hemoccult IFOBT - LAB USE ONLY 10:27:22 CDT CPT-96946 Venipuncture Draw Fee 08:27:08 CDT CPT-67614 Liver Profile - LAB USE ONLY 08:27:07 CDT 2 CPT-05111 Microalbumin - LAB USE ONLY 08:27:07 CDT 20 25/05/09 CPT-99547 PT/INR - LAB USE ONLY 08:27:07 CDT CPT-58752 HGBA1C - LAB USE ONLY 08:27:07 CDT CPT-04116 CBC - LAB USE ONLY 08:27:07 CDT CPT-41718 Venipuncture Draw Fee 11:09:14 CDT CPT-48275 Venipuncture Draw Fee 08:32:21 CODING TECH CPT-18275 Venipuncture Draw Fee 09:38:56 CODING TECH CPT-33496 No Charge Offi Visit 21:36:07 CDT 1 CPT-24398 Venipuncture Draw Fee 10:13:28 CODING TECH CPT-48153 Venipuncture Draw Fee 08:31:11 CDT CPT-93120 Aspir/Inject Med Joint 18:17:28 CDT CPT-35218 Venipuncture Draw Fee 10:13:30 CDT CPT-64817 Venipuncture Draw Fee 08:31:43 CODING TECH CPT-JTINJ Joint Injection 18:34:50 CDT CPT-87412 Knee 3V 12:25:09 CDT CPT-72286 Venipuncture Draw Fee 12:15:57 CDT CPT-060 Medical Surveillance Exam 21:31:43 CDT 2011 CPT-37633 Venipuncture Draw Fee 08:32:05 CODING TECH CPT-OV Office Visit 18:19:06 CDT
--- OUTSIDE RECORDS SUMMARY | 2020-01-18 13:04 | XMS REPORT | Clinical Summary ---
Author Author Admin, Mitch Leon Organization [facility] Address Unknown Phone Unavailable Allergies, Adverse [...] of unspecified type of vessel, [place] or graft EDEMA 782.3 Resolved Mitch Urbina [...] 1 hour if symptoms persist. COLCHICINE 59 458755457 Active Mitch Urbina DO Active COUMADIN 1 MG TAB 2 tabs orally daily with the 5mg tab to equal 7mg daily WARFARIN SODIUM 84757571697 Active Norma Cazares Active COLCRYS 0.6 MG TABS 1 tab qid prn gout COLCHICINE 76596689140 Active Norma Cazares Active INVOKANA 100 MG ORAL TABS 1 tablet orally daily CANAGLIFLOZIN 56789342362 Active Mitch Urbina DO Active MINOXIDIL 2.5 MG TABS 1 tablet daily for high blood pressure 10/23 MINOXIDIL 44957531210 Active Domi Rivera MA Active AMLODIPINE BESYLATE 5 MG TABS 1 tablet by mouth daily AMLODIPINE BESYLATE 22742793148 Active Mitch Urbina DO Active MECLIZINE HCL 25 MG TAB 1 po tid 3 days, then 1/2 tab tid 3 days MECLIZINE HCL 85437219550 No Longer Active Corey SEGURA Active ALLOPURINOL 300 MG TABS Take 1 tablet by mouth daily 2 ALLOPURINOL 07493393792 No Longer Active Corey SEGURA Activ e CLONIDINE HCL 0.1 MG TABS 1 po bid 7 days, then 1/2 tab po b id 7 days CLONIDINE HCL 60035096076 No Longer Active Corey SEGURA Active COUMADIN 5 MG TABS 1 tab PO daily WARFARIN SODIUM 99535867953 Active Mitch Urbina DO Active COUMADIN 4 MG TABS 1 tablet daily WARFARIN SODI UM 62434227414 No Longer Active Corey SEGURA Active POLYTRIM 29380-6.1 UNIT/ML-% SOLN 1 drop in affected e ye every 3 hours while awake x 7 days POLYMYXIN B-TRIMETHOPRIM 73269190279 N o Longer Active Corey SEGURA Active LOSARTAN POTASSIUM-HCTZ 100-12.5 MG TABS 1 by mouth da rocky for high blood pressure LOSARTAN POTASSIUM-HCTZ 75449245673 Active Stephy Urbina DO Active LISINOPRIL-HYDROCHLOROTHIAZIDE 20-12.5 MG TABS 1 tab by mouth da rocky LISINOPRIL-HYDROCHLOROTHIAZIDE 75880134624 No Longer Active Mitch luis DO Active LISINOPRIL 20 MG TABS 1 tab po at HS LISINOPRIL 95785506318 No Longer Active Mitch Urbina DO Active COUMADIN 5 MG TABS 1 by mouth every other day WARFARIN SODIUM 49034021489 No Longer Active Mitch Urbina DO Active COUMADIN 6 MG TABS 1 by mouth every other day WARFARIN SODIUM 96252937632 No Longer Active Mitch Urbina DO Active SIMVASTATIN 40 MG TABS 1 tab daily at bedtime S IMVASTATIN 31511426286 Active Mitch Urbina DO Active SIMVASTATIN 20 MG TABS 1 tab daily at bedtime S IMVASTATIN 58403486832 No Longer Active Mitch Urbina DO Active LOVENOX 100 MG/ML SC SOLN One injection twice a day 09/15/15 ENOXAPARIN SODIUM 58502438132 No Longer Active Carmine Navarrete ctive JANUVIA 50 MG TABS Take one by mouth daily DIEGO GLIPTIN PHOSPHATE 92367894705 Active Mitch Urbina DO Active JANUVIA 100 MG TABS 1/2 by mouth every day DIEGO GLIPTIN PHOSPHATE 37043710362 No Longer Active Bijal Segal RN Active METFORMIN HCL 500 MG TABS 2 by mouth twice daily METFORMIN HCL 81258673487 Active Mitch Urbina DO Active GLIMEPIRIDE 4 MG TABS 1 tab po bid GLIMEPIRIDE 687890 40167 Active Mitch Arnol Carlitos DO Active COLCRYS 0.6 MG TABS 1 po q 6 hours prn gout pain 03/02 COLCHICINE 63860496481 No Longer Active Camila Reese Active LISINOPRIL 5 MG TABS 1 by mouth every day LISIN OPRIL 55016280110 No Longer Active Nguyen Perez Active KLOR-CON 20 MEQ PACK Take one by mouth daily 8 POTASSIUM CHLORIDE 26608814853 No Longer Active Nguyenmolly Perez Active FUROSEMIDE 40 MG TABS 1 by mouth daily FUROSEMI DE 98541856900 No Longer Active Nguyen Perez Active PROVIGIL 200 MG TABS 1/2 tab po q day MODAFINIL 47176 964779 Active Kathie Juan RPT,RMA Active PROVIGIL 100 MG TABS Take one by mouth daily MO DAFINIL 94658156148 No Longer Active Mitch Urbina DO Active BACTRIM DS 800-160 MG TAB 1 tab by mouth twice daily 2 TRIMETHOPRIM-SULFAMETHOXAZOLE 10228566035 No Longer Active Renan Hays MD Active FAMOTIDINE 20 MG TABS by mouth twice a day FAMOTI DINE 20366844115 Active Mitch Urbina DO Active ADULT ASPIRIN LOW STRENGTH 81 MG TBDP 1 by mouth every daily ASPIRIN 62910598714 Active Mitch Urbina DO Active METOPROLOL TARTRATE 50 MG TABS 1 by mouth twice daily METOPROLOL TARTRATE 93739095867 Active Mitch Urbina DO Active BACTRIM DS 800-160 MG TAB 1 tab by mouth twice daily 2 BACTRIM DS 800-160 MG TAB 302490 TRIMETHOPRIM-SULFAMETHOXAZOLE Inac tive PROVIGIL 100 MG TABS Take one by mouth daily 4 PROVIGIL 100 MG TABS 488312 MODAFINIL Inactive FUROSEMIDE 40 MG TABS 1 by mouth daily FU ROSEMIDE 40 MG TABS 337062 FUROSEMIDE Inactive KLOR-CON 20 MEQ PACK Take one by mouth daily 8 KLOR-CON 20 MEQ PACK 126504 POTASSIUM CHLORIDE Inactive LISINOPRIL 5 MG TABS 1 by mouth every day LISINOPRIL 5 MG TABS 106846 LISINOPRIL Inactive COLCRYS 0.6 MG TABS 1 po q 6 hours prn gout pain 03/02 COLCRYS 0.6 MG TABS 191823 COLCHICINE Inactive JANUVIA 100 MG TABS 1/2 by mouth every day JANUVI A 100 MG TABS SITAGLIPTIN PHOSPHATE Inactive SIMVASTATIN 20 MG TABS 1 tab daily at bedtime SIMVASTATIN 20 MG TABS 910132 SIMVASTATIN Inactive COUMADIN 6 MG TABS 1 by mouth every other day COUMADIN 6 MG TABS 602134 WARFARIN SODIUM Inactive COUMADIN 5 MG TABS 1 by mouth every other day COUMADIN 5 MG TABS 447593 WARFARIN SODIUM Inactive LISINOPRIL 20 MG TABS 1 tab po at HS KOKI NOPRIL 20 MG TABS 213414 LISINOPRIL Inactive LISINOPRIL-HYDROCHLOROTHIAZIDE 20-12.5 MG TABS 1 tab by mouth da [place] LISINOPRIL-HYDROCHLOROTHIAZIDE 20-12.5 MG TABS 997161 LISINOPRIL-HYDROCHLOROTHIAZIDE Inactive POLYTRIM 62153-3.1 UNIT/ML-% SOLN 1 drop in affected e ye every 3 hours while awake x 7 days POLYTRIM 32842-4.1 UNIT/ML-% SOLN 47997 7 POLYMYXIN B-TRIMETHOPRIM Inactive COUMADIN 4 MG TABS 1 tablet daily COUMADIN 4 MG TABS 628097 WARFARIN SODIUM Inactive CLONIDINE HCL 0.1 MG TABS 1 po bid 7 days, then 1/2 tab po b id 7 days CLONIDINE HCL 0.1 MG TABS 466150 CLONIDINE HCL I nactive ALLOPURINOL 300 MG TABS Take 1 tablet by mouth daily 2 ALLOPURINOL 300 MG TABS 212168 ALLOPURINOL Inactive MECLIZINE HCL 25 MG TAB 1 po tid 3 days, then 1/2 tab tid 3 days MECLIZINE HCL 25 MG TAB 775265 MECLIZINE HCL Inactive LOVENOX 100 MG/ML SC SOLN One injection twice a day 09/15/15 LOVENOX 100 MG/ML SC SOLN 007959 ENOXAPARIN SODIUM Inactive Vital Signs Date Name [...] Range Description Chart Maintenance: hemoccult added to [facility] - Chemistry occult blood, stool (E&M) [...] - Chem istry sodium, serum 136 mmol/L 184-595 0014/01/14 carbon dioxide, venous blood 25.4 mmol/L 21.0-32 [...] CBC - Chemistry cholesterol, serum 136 mg/dL 960-977 1652/08/09 triglyceride, serum, fasting 187 mg/dL 30-200 HDL [...] 1.0-3.5 Encounters Code Encounter Date Provider Facility CPT-80248 Level 3 Est. Patient 14:21:06 CDT Mitch luis [facility] CPT-43043 Level 3 Est. Patient 14:52:06 [facility] Level 3 Est. Patient 09:34:30 PRACTICE OR STUDENT TEACHER Mitch luis [facility] CPT-88466 Level 3 Est. Patient 09:37:15 CDT Mitch luis [facility] CPT-23577 Level 3 Est. Patient 17:01:00 PRACTICE OR STUDENT TEACHER Mitch luis [facility] CPT-35412 Level 3 Est. Patient 13:53:19 PRACTICE OR STUDENT TEACHER Mitch luis [facility] CPT-14075 Level 3 Est. Patient 19:19:37 PRACTICE OR STUDENT TEACHER Mitch luis [facility] CPT-97644 Level 3 Est. Patient 13:25:53 PRACTICE OR STUDENT TEACHER Tavo toure MD [facility] CPT-75116 Level 3 Est. Patient 18:17:28 CDT Mitch luis [facility] CPT-59243 Level 3 Est. Patient 15:22:57 CDT Mitch luis [facility] CPT-50020 Level 3 Est. Patient 18:21:50 CDT Mitch luis [facility] CPT-88752 Level 3 Est. Patient 18:20:38 CDT Mitch luis [facility] CPT-08873 Level 3 Est. Patient 15:37:55 CDT Mitch luis [facility] CPT-70537 Level 2 Est. Patient 15:54:44 CDT Carmine benton MD [facility] CPT-26442 Level 3 Est. Patient 21:46:01 PRACTICE OR STUDENT TEACHER Mitch luis [facility] CPT-73763 Level 3 Est. Patient 22:15:50 CDT Mitch luis [facility] CPT-33717 Level 3 Est. Patient 10:48:15 CDT Mitch luis [facility] CPT-62679 Level 3 Est. Patient 23:20:57 CDT Tavo toure MD [facility] CPT-68088 Level 3 Est. Patient 16:26:13 CDT Mitch luis [facility] Procedures Code Procedure Name Date Entry Date Standard Desc ription CPT-12893 PT/INR - LAB USE ONLY 10:34:49 PRACTICE OR STUDENT TEACHER CPT-80055 Venipuncture Draw Fee 10:34:48 PRACTICE OR STUDENT TEACHER CPT-16365 PT/INR - LAB USE ONLY 09:22:03 PRACTICE OR STUDENT TEACHER CPT-65300 Venipuncture Draw Fee 09:22:02 PRACTICE OR STUDENT TEACHER CPT-22456 Hemoccult IFOBT - LAB USE ONLY 10:27:22 CDT CPT-42519 Venipuncture Draw Fee 08:27:08 CDT CPT-36675 Liver Profile - LAB USE ONLY 08:27:07 CDT 2 CPT-16695 Microalbumin - LAB USE ONLY 08:27:07 CDT 20 25/05/09 CPT-09670 PT/INR - LAB USE ONLY 08:27:07 CDT CPT-12836 HGBA1C - LAB USE ONLY 08:27:07 CDT CPT-22491 CBC - LAB USE ONLY 08:27:07 CDT CPT-55199 Venipuncture Draw Fee 11:09:14 CDT CPT-47772 Venipuncture Draw Fee 08:32:21 PRACTICE OR STUDENT TEACHER CPT-35070 Venipuncture Draw Fee 09:38:56 PRACTICE OR STUDENT TEACHER CPT-41968 No Charge Offi Visit 21:36:07 CDT 1 CPT-82340 Venipuncture Draw Fee 10:13:28 PRACTICE OR STUDENT TEACHER CPT-79415 Venipuncture Draw Fee 08:31:11 CDT CPT-25535 Aspir/Inject Med Joint 18:17:28 CDT CPT-17645 Venipuncture Draw Fee 10:13:30 CDT CPT-05905 Venipuncture Draw Fee 08:31:43 PRACTICE OR STUDENT TEACHER CPT-JTINJ Joint Injection 18:34:50 CDT CPT-91033 Knee 3V 12:25:09 CDT CPT-04950 Venipuncture Draw Fee 12:15:57 CDT CPT-060 Medical Surveillance Exam 21:31:43 CDT 2011 CPT-84496 Venipuncture Draw Fee 08:32:05 PRACTICE OR STUDENT TEACHER CPT-OV Office Visit 18:19:06 CDT
--- OUTSIDE RECORDS SUMMARY | 2020-01-18 13:05 | XMS REPORT | Clinical Summary ---
[...] [place] or graft EDEMA 782.3 Active Mitch Urbina [...] 1 tablet by mouth daily AMLODIPINE BESYLATE 75296980293 Active Mitch Urbina DO Active MECLIZINE HCL 25 MG TAB 1 po tid 3 days, then 1/2 tab tid 3 days MECLIZINE HCL 94422917198 No Longer Active Corey SEGURA Active ALLOPURINOL 300 MG TABS Take 1 tablet by mouth daily 2 ALLOPURINOL 08906840068 No Longer Active Corey SEGURA Activ e CLONIDINE HCL 0.1 MG TABS 1 po bid 7 days, then 1/2 tab po b id 7 days CLONIDINE HCL 61678581543 No Longer Active Corey SEGURA Active COUMADIN 5 MG TABS 1 tab PO daily WARFARIN SODIUM 29236740160 Active Mitch Urbina DO Active COUMADIN 4 MG TABS 1 tablet daily WARFARIN SODI UM 35727320318 No Longer Active Corey SEGURA Active POLYTRIM 51263-9.1 UNIT/ML-% SOLN 1 drop in affected e ye every 3 hours while awake x 7 days POLYMYXIN B-TRIMETHOPRIM 00435442633 N o Longer Active Corey SEGURA Active [place]AN POTASSIUM-HCTZ 100-12.5 MG TABS 1 by mouth [place] for high blood pressure [place] POTASSIUM-HCTZ 47082762563 Active Stephy Urbina DO Active LISINOPRIL-HYDROCHLOROTHIAZIDE 20-12.5 MG TABS 1 tab by mouth da [place] LISINOPRIL-HYDROCHLOROTHIAZIDE 46941237601 No Longer Active Mitch luis DO Active LISINOPRIL 20 MG TABS 1 tab po at HS LISINOPRIL 40660664877 No Longer Active Mitch Urbina DO Active COUMADIN 5 MG TABS 1 by mouth every other day WARFARIN SODIUM 15385419302 No Longer Active Mitch Urbina DO Active COUMADIN 6 MG TABS 1 by mouth every other day WARFARIN SODIUM 80441510992 No Longer Active Mitch Urbina DO Active COLCRYS 0.6 MG TABS 1 tab qid prn gout COLCHICINE 93877802151 Active Corey SEGURA Active SIMVASTATIN 40 MG TABS 1 tab daily at bedtime S IMVASTATIN 15187346458 Active Mitch Urbina DO Active SIMVASTATIN 20 MG TABS 1 tab daily at bedtime S IMVASTATIN 67860668207 No Longer Active Mitch Urbina DO Active LOVENOX 100 MG/ML SC SOLN One injection twice a day 09/15/15 ENOXAPARIN SODIUM 42616134149 No Longer Active Carmine D [place] MD A ctive JANUVIA 50 MG TABS Take one by mouth daily DIEGO GLIPTIN PHOSPHATE 00745238048 Active Corey Arias PA Active JANUVIA 100 MG TABS 1/2 by mouth every day DIEGO GLIPTIN PHOSPHATE 50578308648 No Longer Active Bijalseth Segal RN Active METFORMIN HCL 500 MG TABS 2 by mouth twice daily METFORMIN HCL 93547204762 Active Mitch Urbina DO Active GLIMEPIRIDE 4 MG TABS 1 tab po bid GLIMEPIRIDE 217758 55155 Active Mitch Urbina DO Active COLCRYS 0.6 MG TABS 1 po q 6 hours prn gout pain 03/02 COLCHICINE 72969769073 No Longer Active Camila Reese Active LISINOPRIL 5 MG TABS 1 by mouth every day LISIN OPRIL 27588774852 No Longer Active Nguyenmolly Perez Active KLOR-CON 20 MEQ PACK Take one by mouth daily 8 POTASSIUM CHLORIDE 65369263693 No Longer Active Nguyen Perez Active FUROSEMIDE 40 MG TABS 1 by mouth daily FUROSEMI DE 84071718208 No Longer Active Nguyen Perez Active PROVIGIL 200 MG TABS 1/2 tab po q day MODAFINIL 11838 613001 Active Mitch Urbina DO Active PROVIGIL 100 MG TABS Take one by mouth daily MO DAFINIL 59527587968 No Longer Active Mitch Urbina DO Active BACTRIM DS 800-160 MG TAB 1 tab by mouth twice daily TRIMETHOPRIM-SULFAMETHOXAZOLE 55184220642 No Longer Active Renan Hays MD Active FAMOTIDINE 20 MG TABS by mouth twice a day FAMOTI DINE 23172310737 Active Mitch Urbina DO Active ADULT ASPIRIN LOW STRENGTH 81 MG TBDP 1 by mouth every daily ASPIRIN 26702236281 Active Mitch Urbina DO Active METOPROLOL TARTRATE 50 MG TABS 1 by mouth twice daily METOPROLOL TARTRATE 92115563729 Active Mitch W Carlitos DO Active BACTRIM DS 800-160 MG TAB 1 tab by mouth twice daily 2 BACTRIM DS 800-160 MG TAB TRIMETHOPRIM-SULFAMETHOXAZOLE Inac tive PROVIGIL 100 MG TABS Take one by mouth daily 4 PROVIGIL 100 MG TABS 618769 MODAFINIL Inactive FUROSEMIDE 40 MG TABS 1 by mouth daily FU ROSEMIDE 40 MG TABS 155611 FUROSEMIDE Inactive KLOR-CON 20 MEQ PACK Take one by mouth daily 8 KLOR-CON 20 MEQ PACK 480877 POTASSIUM CHLORIDE Inactive LISINOPRIL 5 MG TABS 1 by mouth every day LISINOPRIL 5 MG TABS 123749 LISINOPRIL Inactive COLCRYS 0.6 MG TABS 1 po q 6 hours prn gout pain 03/02 COLCRYS 0.6 MG TABS COLCHICINE Inactive JANUVIA 100 MG TABS 1/2 by mouth every day JANUVI A 100 MG TABS SITAGLIPTIN PHOSPHATE Inactive SIMVASTATIN 20 MG TABS 1 tab daily at bedtime SIMVASTATIN 20 MG TABS 006347 SIMVASTATIN Inactive COUMADIN 6 MG TABS 1 by mouth every other day COUMADIN 6 MG TABS 381725 WARFARIN SODIUM Inactive COUMADIN 5 MG TABS 1 by mouth every other day COUMADIN 5 MG TABS 267252 WARFARIN SODIUM Inactive LISINOPRIL 20 MG TABS 1 tab po at HS KOKI NOPRIL 20 MG TABS 043383 LISINOPRIL Inactive LISINOPRIL-HYDROCHLOROTHIAZIDE 20-12.5 MG TABS 1 tab by mouth da [place] LISINOPRIL-HYDROCHLOROTHIAZIDE 20-12.5 MG TABS 539410 LISINOPRIL-HYDROCHLOROTHIAZIDE Inactive POLYTRIM 78149-8.1 UNIT/ML-% SOLN 1 drop in affected e ye every 3 hours while awake x 7 days POLYTRIM 81283-2.1 UNIT/ML-% SOLN 44351 7 POLYMYXIN B-TRIMETHOPRIM Inactive COUMADIN 4 MG TABS 1 tablet daily COUMADIN 4 MG TABS 146503 WARFARIN SODIUM Inactive CLONIDINE HCL 0.1 MG TABS 1 po bid 7 days, then 1/2 tab po b id 7 days CLONIDINE HCL 0.1 MG TABS 698183 CLONIDINE HCL I nactive ALLOPURINOL 300 MG TABS Take 1 tablet by mouth daily 2 ALLOPURINOL 300 MG TABS 497953 ALLOPURINOL Inactive MECLIZINE HCL 25 MG TAB 1 po tid 3 days, then 1/2 tab tid 3 days MECLIZINE HCL 25 MG TAB 435715 MECLIZINE HCL Inactive LOVENOX 100 MG/ML SC SOLN One injection twice a day 09/15/15 LOVENOX 100 MG/ML SC SOLN 880791 ENOXAPARIN SODIUM Inactive Vital Signs Date Name [...] 10.3 mg/dL 2.6-7.2 sodium, serum 136 mmol/L 399-105 6384/07/25 potassium, serum 4.6 mmol/L 3.5-5.2 chloride, serum [...] Panel - Chemistry sodium, serum 137 mmol/L 755-731 2771/11/14 potassium, serum 4.4 mmol/L 3.5-5.2 chloride, serum [...] 8.0 % 4.3-6.0 cholesterol, serum 130 mg/dL 381-975 3930/11/14 triglyceride, serum, fasting 288 mg/dL 30-200 HDL cholesterol, serum 33 mg/dL 32-96 LDL cholesterol, serum 39 mg/dL 0-130 Lab Report: Comp. Metabolic Panel, HGBA1 C, Lipid Panel, Prothrombin Time - Chemistry sodium, serum 136 mmol/L 805-916 1129/12/02 potassium, serum 4.4 mmol/L 3.5-5.2 chloride, serum [...] 7.6 % 4.3-6.0 cholesterol, serum 117 mg/dL 427-837 8507/12/02 triglyceride, serum, fasting 226 mg/dL 30-200 HDL [...] 1.0-3.5 Encounters Code Encounter Date Provider Facility CPT-32981 Level 3 Est. Patient 17:01:00 RESIDENTIAL PROPERTY MANAGER Mitch luis [facility] CPT-00895 Level 3 Est. Patient 13:53:19 RESIDENTIAL PROPERTY MANAGER Mitch luis [facility] CPT-83657 Level 3 Est. Patient 19:19:37 RESIDENTIAL PROPERTY MANAGER Mitch luis [facility] CPT-60130 Level 3 Est. Patient 13:25:53 RESIDENTIAL PROPERTY MANAGER Tavo toure MD [facility] CPT-53878 Level 3 Est. Patient 18:17:28 CDT Mitch luis [facility] CPT-99709 Level 3 Est. Patient 15:22:57 CDT Mitch luis [facility] CPT-51454 Level 3 Est. Patient 18:21:50 CDT Mitch luis [facility] CPT-53177 Level 3 Est. Patient 18:20:38 CDT Mitch luis [facility] CPT-40300 Level 3 Est. Patient 15:37:55 CDT Mitch Castellano ee [facility] CPT-15826 Level 2 Est. Patient 15:54:44 CDT Carmine benton MD [facility] CPT-70313 Level 3 Est. Patient 21:46:01 RESIDENTIAL PROPERTY MANAGER Mitch luis [facility] CPT-81026 Level 3 Est. Patient 22:15:50 CDT Mitch Castellano janelle [facility] CPT-28069 Level 3 Est. Patient 10:48:15 CDT Mitch Arnol luis [facility] CPT-20871 Level 3 Est. Patient 23:20:57 CDT Tavo toure MD [facility] CPT-22818 Level 3 Est. Patient 16:26:13 CDT Mitch Castellano janelle [facility] Procedures Code Procedure Name Date Entry Date Standard Desc ription CPT-79495 Venipuncture Draw Fee 10:13:28 RESIDENTIAL PROPERTY MANAGER CPT-02920 Venipuncture Draw Fee 08:31:11 CDT CPT-93177 Aspir/Inject Med Joint 18:17:28 CDT CPT-84546 Venipuncture Draw Fee 10:13:30 CDT CPT-66228 Venipuncture Draw Fee 08:31:43 RESIDENTIAL PROPERTY MANAGER CPT-JTINJ Joint Injection 18:34:50 CDT CPT-37955 Knee 3V 12:25:09 CDT CPT-46888 Venipuncture Draw Fee 12:15:57 CDT CPT-060 Medical Surveillance Exam 21:31:43 CDT 2011 CPT-20557 Venipuncture Draw Fee 08:32:05 RESIDENTIAL PROPERTY MANAGER CPT-OV Office Visit 18:19:06 CDT
--- OUTSIDE RECORDS SUMMARY | 2020-01-18 13:05 | XMS REPORT | Clinical Summary ---
[...] Coronary atherosclerosis of unspecified type of vessel, [place] or graft EDEMA 782.3 Resolved Mitch Urbina [...] of colon Coumadin therapy V58.61 Active Domi Rivrea MA Long-term (current) use of anticoagulants Valve [...] ( 6mg total ) 2015 WARFARIN SODIUM 75443285666 Active Jannette Alcides RMA Act juan INVOKANA 100 MG ORAL TABS 1 tablet orally daily CANAGLIFLOZIN 63785012767 Active Kathie Juan RPT,RMA Active MINOXIDIL 2.5 MG TABS 1 tablet daily for high blood pressure 10/23 MINOXIDIL 43062418365 Active Mitch Urbina DO Active AMLODIPINE BESYLATE 5 MG TABS 1 tablet by mouth daily AMLODIPINE BESYLATE 76404312804 Active Domi Rivera MA Active MECLIZINE HCL 25 MG TAB 1 po tid 3 days, then 1/2 tab tid 3 days MECLIZINE HCL 90982675610 No Longer Active Corey SEGURA Active ALLOPURINOL 300 MG TABS Take 1 tablet by mouth daily 2 ALLOPURINOL 01484269304 No Longer Active Corey SEGURA Activ e CLONIDINE HCL 0.1 MG TABS 1 po bid 7 days, then 1/2 tab po b id 7 days CLONIDINE HCL 83381914016 No Longer Active Corey SEGURA Active COUMADIN 5 MG TABS 1 tab PO daily WARFARIN SODIUM 93280724991 Active Domi Rivera MA Active COUMADIN 4 MG TABS 1 tablet daily WARFARIN SODI UM 93801893668 No Longer Active Corey SEGURA Active POLYTRIM 84436-3.1 UNIT/ML-% SOLN 1 drop in affected e ye every 3 hours while awake x 7 days POLYMYXIN B-TRIMETHOPRIM 07128855476 N o Longer Active Corey SEGURA Active LOSARTAN POTASSIUM-HCTZ 100-12.5 MG TABS 1 by mouth da rocky for high blood pressure LOSARTAN POTASSIUM-HCTZ 34528355682 Active Domi Rivera MA Active LISINOPRIL-HYDROCHLOROTHIAZIDE 20-12.5 MG TABS 1 tab by mouth da rocky LISINOPRIL-HYDROCHLOROTHIAZIDE 53660630196 No Longer Active Mitch luis DO Active LISINOPRIL 20 MG TABS 1 tab po at HS LISINOPRIL 92583023430 No Longer Active Mitch Urbina DO Active COUMADIN 5 MG TABS 1 by mouth every other day WARFARIN SODIUM 62180981236 No Longer Active Mitch Urbina DO Active COUMADIN 6 MG TABS 1 by mouth every other day WARFARIN SODIUM 46388018172 No Longer Active Mitch Urbina DO Active COLCRYS 0.6 MG TABS 1 tab qid prn gout COLCHICINE 84213170210 Active Corey SEGURA Active SIMVASTATIN 40 MG TABS 1 tab daily at bedtime S IMVASTATIN 65232392873 Active Dmoi Rivera MA Active SIMVASTATIN 20 MG TABS 1 tab daily at bedtime S IMVASTATIN 48399653628 No Longer Active Mitch Urbina DO Active LOVENOX 100 MG/ML SC SOLN One injection twice a day 09/15/15 ENOXAPARIN SODIUM 23515978999 No Longer Active Carmine Navarrete ctive JANUVIA 50 MG TABS Take one by mouth daily DIEGO GLIPTIN PHOSPHATE 78771700301 Active Domi Rivera MA Active JANUVIA 100 MG TABS 1/2 by mouth every day DIEGO GLIPTIN PHOSPHATE 42042462162 No Longer Active Bijal Segal RN Active METFORMIN HCL 500 MG TABS 2 by mouth twice daily METFORMIN HCL 87795906618 Active Domi Rivera MA Active GLIMEPIRIDE 4 MG TABS 1 tab po bid GLIMEPIRIDE 930294 48021 Active Domi Rivera MA Active COLCRYS 0.6 MG TABS 1 po q 6 hours prn gout pain 03/02 COLCHICINE 55084079671 No Longer Active Camila Reese Active LISINOPRIL 5 MG TABS 1 by mouth every day LISIN OPRIL 93080862724 No Longer Active Nguyen Perez Active KLOR-CON 20 MEQ PACK Take one by mouth daily 8 POTASSIUM CHLORIDE 87370564856 No Longer Active Nguyen Perez Active FUROSEMIDE 40 MG TABS 1 by mouth daily FUROSEMI DE 11797997723 No Longer Active Nguyenmolly Perez Active PROVIGIL 200 MG TABS 1/2 tab po q day MODAFINIL 54339 990926 Active Domi Rivera MA Active PROVIGIL 100 MG TABS Take one by mouth daily MO DAFINIL 15871757222 No Longer Active Mitch Urbina DO Active BACTRIM DS 800-160 MG TAB 1 tab by mouth twice daily 2 TRIMETHOPRIM-SULFAMETHOXAZOLE 02522750684 No Longer Active Renan Hays MD Active FAMOTIDINE 20 MG TABS by mouth twice a day FAMOTI DINE 52235166179 Active Mitch Urbina DO Active ADULT ASPIRIN LOW STRENGTH 81 MG TBDP 1 by mouth every daily ASPIRIN 59693566005 Active Mitch Urbina DO Active METOPROLOL TARTRATE 50 MG TABS 1 by mouth twice daily METOPROLOL TARTRATE 36402938603 Active Domi Rivera MA Active BACTRIM DS 800-160 MG TAB 1 tab by mouth twice daily 2 BACTRIM DS 800-160 MG TAB 413733 TRIMETHOPRIM-SULFAMETHOXAZOLE Inac tive PROVIGIL 100 MG TABS Take one by mouth daily 4 PROVIGIL 100 MG TABS 313963 MODAFINIL Inactive FUROSEMIDE 40 MG TABS 1 by mouth daily FU ROSEMIDE 40 MG TABS 121293 FUROSEMIDE Inactive KLOR-CON 20 MEQ PACK Take one by mouth daily 8 KLOR-CON 20 MEQ PACK 107714 POTASSIUM CHLORIDE Inactive LISINOPRIL 5 MG TABS 1 by mouth every day LISINOPRIL 5 MG TABS 699057 LISINOPRIL Inactive COLCRYS 0.6 MG TABS 1 po q 6 hours prn gout pain 03/02 COLCRYS 0.6 MG TABS 045819 COLCHICINE Inactive JANUVIA 100 MG TABS 1/2 by mouth every day JANUVI A 100 MG TABS SITAGLIPTIN PHOSPHATE Inactive SIMVASTATIN 20 MG TABS 1 tab daily at bedtime SIMVASTATIN 20 MG TABS 492647 SIMVASTATIN Inactive COUMADIN 6 MG TABS 1 by mouth every other day COUMADIN 6 MG TABS 516183 WARFARIN SODIUM Inactive COUMADIN 5 MG TABS 1 by mouth every other day COUMADIN 5 MG TABS 738897 WARFARIN SODIUM Inactive LISINOPRIL 20 MG TABS 1 tab po at HS KOKI NOPRIL 20 MG TABS 217952 LISINOPRIL Inactive LISINOPRIL-HYDROCHLOROTHIAZIDE 20-12.5 MG TABS 1 tab by mouth da rocky LISINOPRIL-HYDROCHLOROTHIAZIDE 20-12.5 MG TABS 250786 LISINOPRIL-HYDROCHLOROTHIAZIDE Inactive POLYTRIM 08204-7.1 UNIT/ML-% SOLN 1 drop in affected e ye every 3 hours while awake x 7 days POLYTRIM 25696-5.1 UNIT/ML-% SOLN 91192 7 POLYMYXIN B-TRIMETHOPRIM Inactive COUMADIN 4 MG TABS 1 tablet daily COUMADIN 4 MG TABS 318548 WARFARIN SODIUM Inactive CLONIDINE HCL 0.1 MG TABS 1 po bid 7 days, then 1/2 tab po b id 7 days CLONIDINE HCL 0.1 MG TABS 516334 CLONIDINE HCL I nactive ALLOPURINOL 300 MG TABS Take 1 tablet by mouth daily 2 ALLOPURINOL 300 MG TABS 320073 ALLOPURINOL Inactive MECLIZINE HCL 25 MG TAB 1 po tid 3 days, then 1/2 tab tid 3 days MECLIZINE HCL 25 MG TAB 749992 MECLIZINE HCL Inactive LOVENOX 100 MG/ML SC SOLN One injection twice a day 20 09/15/15 LOVENOX 100 MG/ML SC SOLN 540809 ENOXAPARIN SODIUM Inactive Vital Signs Date Name [...] Range Description Chart Maintenance: Hemoccult added to [facility] - Chemistry occult blood, stool [...] Ag - Chemistry sodium, serum 141 mmol/L 517-137 3731/07/06 potassium, serum 4.4 mmol/L 3.5-5.2 chloride, serum [...] - Chem istry sodium, serum 136 mmol/L 456-718 7885/01/14 carbon dioxide, venous blood 25.4 mmol/L 21.0-32 [...] 7.0 % 4.3-6.0 cholesterol, serum 120 mg/dL 161-782 8723/07/06 triglyceride, serum, fasting 186 mg/dL 30-200 HDL [...] 1.0-3.5 Encounters Code Encounter Date Provider Facility CPT-02891 Level 3 Est. 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 Patient 09:37:15 CDT Mitch luis [facility] CPT-77657 Level 3 Est. Patient 17:01:00 DOUGH MIXING MACHINE OPERATOR Mitch luis [facility] CPT-26147 Level 3 Est. Patient 13:53:19 DOUGH MIXING MACHINE OPERATOR Mitch luis [facility] CPT-78568 Level 3 Est. Patient 19:19:37 DOUGH MIXING MACHINE OPERATOR Mitch luis [facility] CPT-07129 Level 3 Est. Patient 13:25:53 DOUGH MIXING MACHINE OPERATOR Tavo toure MD [facility]-31597 Level 3 Est. Patient 18:17:28 CDT Mitch luis [facility] CPT-99786 Level 3 Est. Patient 15:22:57 CDT Mitch luis [facility] CPT-19235 Level 3 Est. Patient 18:21:50 CDT Mitch luis [facility] CPT-06835 Level 3 Est. Patient 18:20:38 CDT Mitch luis [facility] CPT-25379 Level 3 Est. Patient 15:37:55 CDT Mitch luis [facility] CPT-47405 Level 2 Est. Patient 15:54:44 CDT Carmine benton MD -[id number] Level 3 Est. 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 Patient 22:15:50 CDT [facility] CPT-42300 Level 3 Est. Patient 10:48:15 CDT Mitch l[facility] CPT-47084 Level 3 Est. Patient 23:20:57 CDT Tavo toure MD [facility] CPT-49726 Level 3 Est. Patient 16:26:13 CDT Mitch [facility]uis [facility] Procedures Code Procedure Name Date Entry Date Standard Desc ription CPT-77979 Venipuncture Draw Fee 08:32:21 DOUGH MIXING MACHINE OPERATOR CPT-02816 Venipuncture Draw Fee 09:38:56 DOUGH MIXING MACHINE OPERATOR CPT-40497 No Charge Offi Visit 21:36:07 CDT 1 CPT-31883 Venipuncture Draw Fee 10:13:28 DOUGH MIXING MACHINE OPERATOR CPT-18021 Venipuncture Draw Fee 08:31:11 CDT CPT-26090 Aspir/Inject Med Joint 18:17:28 CDT CPT-41354 Venipuncture Draw Fee 10:13:30 CDT CPT-56113 Venipuncture Draw Fee 08:31:43 DOUGH MIXING MACHINE OPERATOR CPT-JTINJ Joint Injection 18:34:50 CDT CPT-94558 Knee 3V 12:25:09 CDT CPT-69738 Venipuncture Draw Fee 12:15:57 CDT CPT-060 Medical Surveillance Exam 21:31:43 CDT 2011 CPT-91873 Venipuncture Draw Fee 08:32:05 DOUGH MIXING MACHINE OPERATOR CPT-OV Office Visit 18:19:06 CDT
--- OUTSIDE RECORDS SUMMARY | 2020-01-18 13:05 | XMS REPORT | Clinical Summary ---
[...] atherosclerosis of unspecified type of vessel, [place] or graft EDEMA 782.3 Active Mitch Urbina [...] 1 tablet by mouth daily AMLODIPINE BESYLATE 68631338463 Active Mitch Urbina DO Active MECLIZINE HCL 25 MG TAB 1 po tid 3 days, then 1/2 tab tid 3 days MECLIZINE HCL 46857859433 No Longer Active Corey SEGURA Active ALLOPURINOL 300 MG TABS Take 1 tablet by mouth daily 2 ALLOPURINOL 60462286466 No Longer Active Corey SEGURA Activ e CLONIDINE HCL 0.1 MG TABS 1 po bid 7 days, then 1/2 tab po b id 7 days CLONIDINE HCL 26444525889 No Longer Active Corey SEGURA Active COUMADIN 5 MG TABS 1 tab PO daily WARFARIN SODIUM 15560016380 Active Mitch Urbina DO Active COUMADIN 4 MG TABS 1 tablet daily WARFARIN SODI UM 98321428480 No Longer Active Corey SEGURA Active POLYTRIM 65175-3.1 UNIT/ML-% SOLN 1 drop in affected e ye every 3 hours while awake x 7 days POLYMYXIN B-TRIMETHOPRIM 65589229172 N o Longer Active Corey SEGURA Active LOSARTAN POTASSIUM-HCTZ 100-12.5 MG TABS 1 by mouth [place] for high blood pressure LOSARTAN POTASSIUM-HCTZ 73153010940 Active Stephy Urbina DO Active LISINOPRIL-HYDROCHLOROTHIAZIDE 20-12.5 MG TABS 1 tab by mouth da rocky LISINOPRIL-HYDROCHLOROTHIAZIDE 75747959560 No Longer Active Mitch luis DO Active LISINOPRIL 20 MG TABS 1 tab po at HS LISINOPRIL 32407846592 No Longer Active Mitch Urbina DO Active COUMADIN 5 MG TABS 1 by mouth every other day WARFARIN SODIUM 86223436924 No Longer Active Mitch Urbina DO Active COUMADIN 6 MG TABS 1 by mouth every other day WARFARIN SODIUM 12400736675 No Longer Active Mitch Urbina DO Active COLCRYS 0.6 MG TABS 1 tab qid prn gout COLCHICINE 06273737133 Active Corey SEGURA Active SIMVASTATIN 40 MG TABS 1 tab daily at bedtime S IMVASTATIN 90521723514 Active Mitch Urbina DO Active SIMVASTATIN 20 MG TABS 1 tab daily at bedtime S IMVASTATIN 22720929022 No Longer Active Mitch Urbina DO Active LOVENOX 100 MG/ML SC SOLN One injection twice a day 09/15/15 ENOXAPARIN SODIUM 41318140495 No Longer Active Carmine D [place] MD A ctive JANUVIA 50 MG TABS Take one by mouth daily DIEGO GLIPTIN PHOSPHATE 32934952314 Active Corey Arias PA Active JANUVIA 100 MG TABS 1/2 by mouth every day DIEGO GLIPTIN PHOSPHATE 76375481868 No Longer Active Bijalseth Segal RN Active METFORMIN HCL 500 MG TABS 2 by mouth twice daily METFORMIN HCL 18959696284 Active Mitch Urbina DO Active GLIMEPIRIDE 4 MG TABS 1 tab po bid GLIMEPIRIDE 660758 40323 Active Mitch Urbina DO Active COLCRYS 0.6 MG TABS 1 po q 6 hours prn gout pain 03/02 COLCHICINE 55082406409 No Longer Active Camila Reese Active LISINOPRIL 5 MG TABS 1 by mouth every day LISIN OPRIL 09084450793 No Longer Active Nguyenmolly Perez Active KLOR-CON 20 MEQ PACK Take one by mouth daily 8 POTASSIUM CHLORIDE 99315842970 No Longer Active Nguyen Perez Active FUROSEMIDE 40 MG TABS 1 by mouth daily FUROSEMI DE 04385996154 No Longer Active Nguyen Perez Active PROVIGIL 200 MG TABS 1/2 tab po q day MODAFINIL 44896 720674 Active Mitch Urbina DO Active PROVIGIL 100 MG TABS Take one by mouth daily MO DAFINIL 20163779071 No Longer Active Mitch Urbina DO Active BACTRIM DS 800-160 MG TAB 1 tab by mouth twice daily TRIMETHOPRIM-SULFAMETHOXAZOLE 72856871700 No Longer Active Renan Hays MD Active FAMOTIDINE 20 MG TABS by mouth twice a day FAMOTI DINE 27521901313 Active Mitch Urbina DO Active ADULT ASPIRIN LOW STRENGTH 81 MG TBDP 1 by mouth every daily ASPIRIN 59455003522 Active Mitch Urbina DO Active METOPROLOL TARTRATE 50 MG TABS 1 by mouth twice daily METOPROLOL TARTRATE 67794581863 Active Mitch W [place] DO Active BACTRIM DS 800-160 MG TAB 1 tab by mouth twice daily 2 BACTRIM DS 800-160 MG TAB TRIMETHOPRIM-SULFAMETHOXAZOLE Inac tive PROVIGIL 100 MG TABS Take one by mouth daily 4 PROVIGIL 100 MG TABS 159887 MODAFINIL Inactive FUROSEMIDE 40 MG TABS 1 by mouth daily FU ROSEMIDE 40 MG TABS 130599 FUROSEMIDE Inactive KLOR-CON 20 MEQ PACK Take one by mouth daily 8 KLOR-CON 20 MEQ PACK 630334 POTASSIUM CHLORIDE Inactive LISINOPRIL 5 MG TABS 1 by mouth every day LISINOPRIL 5 MG TABS 918496 LISINOPRIL Inactive COLCRYS 0.6 MG TABS 1 po q 6 hours prn gout pain 03/02 COLCRYS 0.6 MG TABS COLCHICINE Inactive JANUVIA 100 MG TABS 1/2 by mouth every day JANUVI A 100 MG TABS SITAGLIPTIN PHOSPHATE Inactive SIMVASTATIN 20 MG TABS 1 tab daily at bedtime SIMVASTATIN 20 MG TABS 517638 SIMVASTATIN Inactive COUMADIN 6 MG TABS 1 by mouth every other day COUMADIN 6 MG TABS 095452 WARFARIN SODIUM Inactive COUMADIN 5 MG TABS 1 by mouth every other day COUMADIN 5 MG TABS 712306 WARFARIN SODIUM Inactive LISINOPRIL 20 MG TABS 1 tab po at HS KOKI NOPRIL 20 MG TABS 560244 LISINOPRIL Inactive LISINOPRIL-HYDROCHLOROTHIAZIDE 20-12.5 MG TABS 1 tab by mouth da rocky LISINOPRIL-HYDROCHLOROTHIAZIDE 20-12.5 MG TABS 390937 LISINOPRIL-HYDROCHLOROTHIAZIDE Inactive POLYTRIM 00509-7.1 UNIT/ML-% SOLN 1 drop in affected e ye every 3 hours while awake x 7 days POLYTRIM 06847-4.1 UNIT/ML-% SOLN 73854 7 POLYMYXIN B-TRIMETHOPRIM Inactive COUMADIN 4 MG TABS 1 tablet daily COUMADIN 4 MG TABS 252327 WARFARIN SODIUM Inactive CLONIDINE HCL 0.1 MG TABS 1 po bid 7 days, then 1/2 tab po b id 7 days CLONIDINE HCL 0.1 MG TABS 147620 CLONIDINE HCL I nactive ALLOPURINOL 300 MG TABS Take 1 tablet by mouth daily 2 ALLOPURINOL 300 MG TABS 199119 ALLOPURINOL Inactive MECLIZINE HCL 25 MG TAB 1 po tid 3 days, then 1/2 tab tid 3 days MECLIZINE HCL 25 MG TAB 000380 MECLIZINE HCL Inactive LOVENOX 100 MG/ML SC SOLN One injection twice a day 09/15/15 LOVENOX 100 MG/ML SC SOLN 593789 ENOXAPARIN SODIUM Inactive Vital Signs Date Name [...] Description Lab Report: CBC W/DIFF - Hematology erythrocyte (RBC) count 4.83 10^6/MM^3 10*6/mm3 4.69-6.1 3 hemoglobin, blood 13.0 g/dL 13.5-17.5 hematocrit, blood 39.5 % 41.0-53.0 mean corpuscular volume, RBC 82 fL 80-97 mean corpuscular hemoglobin, RBC 27.0 pg 27. 0-31.2 mean corpuscular hemoglobin concentration, RBC 33.0 G/DL % 31.8-35.4 red blood cell distribution width 17.2 % 11 .6-14.8 platelet count 283 10^3/MM^3 10*3/mm3 023-144 3639/03/27 lymphocytes as percent of blood leukocytes 19.7 % 20.5-51.1 monocytes as percent of blood leukocytes 7.3 % 1.7-9.3 neutrophils as percent of blood leukocytes 69.3 % 42.2-75.2 leukocyte count, blood 6.2 10^3/MM^3 10*3/mm3 4.6-10.2 Lab Report: CBC, Comp. Metabolic Panel, HGBA1C, MICROALBUMIN, Uric Acid - Chemistry sodium, serum 136 mmol/L 156-671 6634/07/25 potassium, serum 4.6 mmol/L 3.5-5.2 chloride, serum [...] 11 .6-14.8 platelet count 277 10^3/MM^3 10*3/mm3 805-930 1214/07/25 mean corpuscular volume, RBC 80 fL 80-97 hematocrit, blood 40.1 % 41.0-53.0 hemoglobin, blood 12.8 g/dL 13.5-17.5 erythrocyte (RBC) count 5.02 10^6/MM^3 10*6/mm3 4.69-6.1 3 leukocyte count, blood 6.6 10^3/MM^3 10*3/mm3 4.6-10.2 Lab Report: CBC, Comp. Metabolic Panel, HGBA1C, MICROALBUMIN, Uric Acid - Lab microalbumin, urine 30 0-19 Lab Report: Comp. Metabolic Panel, HGBA1 C, Lipid Panel - Chemistry hemoglobin A1C, blood, as % of total hemoglobin 8.0 % 4.3-6.0 cholesterol, serum 130 mg/dL 734-389 1943/11/14 triglyceride, serum, fasting 288 mg/dL 30-200 HDL cholesterol, serum 33 mg/dL 32-96 LDL cholesterol, serum 39 mg/dL 0-130 sodium, serum 137 mmol/L 947-548 5645/11/14 potassium, serum 4.4 mmol/L 3.5-5.2 chloride, serum 100 mmol/L 98-107 carbon dioxide, venous blood 33.0 mmol/L 21.0-32 .0 blood glucose 181 mg/dL 65-110 urea nitrogen, blood 28 mg/dL 7-18 creatinine, serum 1.30 mg/dL 0.60-1.30 alanine aminotransferase (SGPT), serum 38 U/L 12-78 aspartate aminotransferase (SGOT), serum 34 U/L 15-37 calcium, serum 10.4 mg/dL 8.5-10.1 bilirubin, serum, total 0.90 mg/dL 0.00-1.00 Lab Report: Comp. Metabolic Panel, HGBA1 C, Lipid Panel, Prothrombin Time - Chemistry HDL cholesterol, serum 30 mg/dL 32-96 LDL cholesterol, serum 42 mg/dL 0-130 sodium, serum 136 mmol/L 864-516 9427/12/02 potassium, serum 4.4 mmol/L 3.5-5.2 chloride, serum [...] 7.6 % 4.3-6.0 cholesterol, serum 117 mg/dL 185-495 1000/12/02 triglyceride, serum, fasting 226 mg/dL 30-200 Lab [...] 1.0-3.5 Encounters Code Encounter Date Provider Facility CPT-40944 Level 3 Est. 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 Patient 13:53:19 PROCESS ENGINEERING TECHNICIAN Mitch luis [facility] CPT-48199 Level 3 Est. Patient 19:19:37 PROCESS ENGINEERING TECHNICIAN Mitch luis [facility] CPT-57006 Level 3 Est. Patient 13:25:53 PROCESS ENGINEERING TECHNICIAN Tavo toure MD [facility] CPT-64357 Level 3 Est. Patient 18:17:28 CDT Mitch luis [facility] CPT-20280 Level 3 Est. Patient 15:22:57 CDT Mitch luis [facility] CPT-04178 Level 3 Est. Patient 18:21:50 CDT Mitch luis [facility] CPT-79513 Level 3 Est. Patient 18:20:38 CDT Mitch luis [facility] CPT-12567 Level 3 Est. Patient 15:37:55 CDT Mitch Castellano ee [facility] CPT-71176 Level 2 Est. Patient 15:54:44 CDT Carmine benton MD [facility] CPT-26161 Level 3 Est. Patient 21:46:01 PROCESS ENGINEERING TECHNICIAN Mitch luis [facility] CPT-06300 Level 3 Est. Patient 22:15:50 CDT Mitch Castellano janelle [facility] CPT-51051 Level 3 Est. Patient 10:48:15 CDT Mitch Arnol luis [facility] CPT-80000 Level 3 Est. Patient 23:20:57 CDT Tavo toure MD [facility] CPT-67352 Level 3 Est. Patient 16:26:13 CDT Mitch Castellano janelle [facility] Procedures Code Procedure Name Date Entry Date Standard Desc ription CPT-59958 Venipuncture Draw Fee 10:13:28 PROCESS ENGINEERING TECHNICIAN CPT-71158 Venipuncture Draw Fee 08:31:11 CDT CPT-90010 Aspir/Inject Med Joint 18:17:28 CDT CPT-18101 Venipuncture Draw Fee 10:13:30 CDT CPT-45274 Venipuncture Draw Fee 08:31:43 PROCESS ENGINEERING TECHNICIAN CPT-JTINJ Joint Injection 18:34:50 CDT CPT-81326 Knee 3V 12:25:09 CDT CPT-87559 Venipuncture Draw Fee 12:15:57 CDT CPT-060 Medical Surveillance Exam 21:31:43 CDT 2011 CPT-75954 Venipuncture Draw Fee 08:32:05 PROCESS ENGINEERING TECHNICIAN CPT-OV Office Visit 18:19:06 CDT
--- OUTSIDE RECORDS SUMMARY | 2020-01-18 13:05 | XMS REPORT | Clinical Summary ---
Author Author Admin, Mitch Leon Organization [facility] Address Unknown Phone Unavailable Allergies, Adverse Reactions, [...] Seroma complicating a procedure HYPERLIPIDEMIA 272.4 Active Renna Hays MD Other and unspecified hyperlipidemia DIABETES, [...] Coronary atherosclerosis of unspecified type of vessel, cachil dehe or graft EDEMA 782.3 Active Mitch Urbina [...] 1 tablet by mouth daily AMLODIPINE BESYLATE 99949209282 Active Mitch Urbina DO Active MECLIZINE HCL 25 MG TAB 1 po tid 3 days, then 1/2 tab tid 3 days MECLIZINE HCL 30103784568 No Longer Active Corey SEGURA Active ALLOPURINOL 300 MG TABS Take 1 tablet by mouth daily 2 ALLOPURINOL 13464434925 No Longer Active Corey SEGURA Activ e CLONIDINE HCL 0.1 MG TABS 1 po bid 7 days, then 1/2 tab po b id 7 days CLONIDINE HCL 11563965096 No Longer Active Corey SEGURA Active COUMADIN 5 MG TABS 1 tab PO daily WARFARIN SODIUM 09317914795 Active Mitch Urbina DO Active COUMADIN 4 MG TABS 1 tablet daily WARFARIN SODI UM 24854388387 No Longer Active Corey SEGURA Active POLYTRIM 53875-2.1 UNIT/ML-% SOLN 1 drop in affected e ye every 3 hours while awake x 7 days POLYMYXIN B-TRIMETHOPRIM 64975997970 N o Longer Active Corey SEGURA Active LOSARTAN POTASSIUM-HCTZ 100-12.5 MG TABS 1 by mouth da rocky for high blood pressure LOSARTAN POTASSIUM-HCTZ 69965352587 Active Stephy Urbina DO Active LISINOPRIL-HYDROCHLOROTHIAZIDE 20-12.5 MG TABS 1 tab by mouth da rocky LISINOPRIL-HYDROCHLOROTHIAZIDE 16819685814 No Longer Active Mitch luis DO Active LISINOPRIL 20 MG TABS 1 tab po at HS LISINOPRIL 42776131267 No Longer Active Mitch Urbina DO Active COUMADIN 5 MG TABS 1 by mouth every other day WARFARIN SODIUM 60500990527 No Longer Active Mitch Urbina DO Active COUMADIN 6 MG TABS 1 by mouth every other day WARFARIN SODIUM 73310875465 No Longer Active Mitch Urbina DO Active COLCRYS 0.6 MG TABS 1 tab qid prn gout COLCHICINE 80107889202 Active Corey SEGURA Active SIMVASTATIN 40 MG TABS 1 tab daily at bedtime S IMVASTATIN 71693260723 Active Mitch Urbina DO Active SIMVASTATIN 20 MG TABS 1 tab daily at bedtime S IMVASTATIN 40727926641 No Longer Active Mitch Urbina DO Active LOVENOX 100 MG/ML SC SOLN One injection twice a day 09/15/15 ENOXAPARIN SODIUM 19725599013 No Longer Active Carmine Navarrete ctive JANUVIA 50 MG TABS Take one by mouth daily DIEGO GLIPTIN PHOSPHATE 71067855994 Active Domi Rivera MA Active JANUVIA 100 MG TABS 1/2 by mouth every day DIEGO GLIPTIN PHOSPHATE 38436840989 No Longer Active Bijal Segal RN Active METFORMIN HCL 500 MG TABS 2 by mouth twice daily METFORMIN HCL 25924099454 Active Mitch Urbina DO Active GLIMEPIRIDE 4 MG TABS 1 tab po bid GLIMEPIRIDE 001021 20860 Active Mitch Urbina DO Active COLCRYS 0.6 MG TABS 1 po q 6 hours prn gout pain 03/02 COLCHICINE 94602392329 No Longer Active Camila Reese Active LISINOPRIL 5 MG TABS 1 by mouth every day LISIN OPRIL 32811077227 No Longer Active Nguyenmolly Perez Active KLOR-CON 20 MEQ PACK Take one by mouth daily 8 POTASSIUM CHLORIDE 00788924416 No Longer Active Nguyen Perez Active FUROSEMIDE 40 MG TABS 1 by mouth daily FUROSEMI DE 53336203829 No Longer Active Nguyen Perez Active PROVIGIL 200 MG TABS 1/2 tab po q day MODAFINIL 51036 245188 Active Mitch Urbina DO Active PROVIGIL 100 MG TABS Take one by mouth daily MO DAFINIL 20653032520 No Longer Active Mitch Urbina DO Active BACTRIM DS 800-160 MG TAB 1 tab by mouth twice daily 2 TRIMETHOPRIM-SULFAMETHOXAZOLE 90912579347 No Longer Active Renan Hays MD Active FAMOTIDINE 20 MG TABS by mouth twice a day FAMOTI DINE 09897361564 Active Mitch W Carlitos DO Active ADULT ASPIRIN LOW STRENGTH 81 MG TBDP 1 by mouth every daily ASPIRIN 72470157449 Active Mitch Urbina DO Active METOPROLOL TARTRATE 50 MG TABS 1 by mouth twice daily METOPROLOL TARTRATE 49341535296 Active Curly Coker MD Active BACTRIM DS 800-160 MG TAB 1 tab by mouth twice daily 2 BACTRIM DS 800-160 MG TAB TRIMETHOPRIM-SULFAMETHOXAZOLE Inac tive PROVIGIL 100 MG TABS Take one by mouth daily 4 PROVIGIL 100 MG TABS 314315 MODAFINIL Inactive FUROSEMIDE 40 MG TABS 1 by mouth daily FU ROSEMIDE 40 MG TABS 957488 FUROSEMIDE Inactive KLOR-CON 20 MEQ PACK Take one by mouth daily 8 KLOR-CON 20 MEQ PACK 404611 POTASSIUM CHLORIDE Inactive LISINOPRIL 5 MG TABS 1 by mouth every day LISINOPRIL 5 MG TABS 370980 LISINOPRIL Inactive COLCRYS 0.6 MG TABS 1 po q 6 hours prn gout pain 03/02 COLCRYS 0.6 MG TABS 670990 COLCHICINE Inactive JANUVIA 100 MG TABS 1/2 by mouth every day JANUVI A 100 MG TABS SITAGLIPTIN PHOSPHATE Inactive SIMVASTATIN 20 MG TABS 1 tab daily at bedtime SIMVASTATIN 20 MG TABS 372825 SIMVASTATIN Inactive COUMADIN 6 MG TABS 1 by mouth every other day COUMADIN 6 MG TABS 228245 WARFARIN SODIUM Inactive COUMADIN 5 MG TABS 1 by mouth every other day COUMADIN 5 MG TABS 679826 WARFARIN SODIUM Inactive LISINOPRIL 20 MG TABS 1 tab po at HS KOKI NOPRIL 20 MG TABS 259564 LISINOPRIL Inactive LISINOPRIL-HYDROCHLOROTHIAZIDE 20-12.5 MG TABS 1 tab by mouth da rocky LISINOPRIL-HYDROCHLOROTHIAZIDE 20-12.5 MG TABS 743378 LISINOPRIL-HYDROCHLOROTHIAZIDE Inactive POLYTRIM 35375-1.1 UNIT/ML-% SOLN 1 drop in affected e ye every 3 hours while awake x 7 days POLYTRIM 16738-3.1 UNIT/ML-% SOLN 44513 7 POLYMYXIN B-TRIMETHOPRIM Inactive COUMADIN 4 MG TABS 1 tablet daily COUMADIN 4 MG TABS 883063 WARFARIN SODIUM Inactive CLONIDINE HCL 0.1 MG TABS 1 po bid 7 days, then 1/2 tab po b id 7 days CLONIDINE HCL 0.1 MG TABS 982409 CLONIDINE HCL I nactive ALLOPURINOL 300 MG TABS Take 1 tablet by mouth daily 2 ALLOPURINOL 300 MG TABS 912951 ALLOPURINOL Inactive MECLIZINE HCL 25 MG TAB 1 po tid 3 days, then 1/2 tab tid 3 days MECLIZINE HCL 25 MG TAB 275961 MECLIZINE HCL Inactive LOVENOX 100 MG/ML SC SOLN One injection twice a day 09/15/15 LOVENOX 100 MG/ML SC SOLN 020855 ENOXAPARIN SODIUM Inactive Vital Signs Date Name [...] percent of blood leukocytes 7.3 % 1.7-9.3 erythrocyte (RBC) count 4.83 10^6/MM^3 10*6/mm3 4.69-6.1 3 hemoglobin, blood 13.0 g/dL 13.5-17.5 hematocrit, blood 39.5 % 41.0-53.0 mean corpuscular volume, RBC 82 fL 80-97 mean corpuscular hemoglobin, RBC 27.0 pg 27. 0-31.2 mean corpuscular hemoglobin concentration, RBC 33.0 G/DL % 31.8-35.4 red blood cell distribution width 17.2 % 11 .6-14.8 platelet count 283 10^3/MM^3 10*3/mm3 799-199 0313/03/27 lymphocytes as percent of blood leukocytes 19.7 % 20.5-51.1 leukocyte count, blood 6.2 10^3/MM^3 10*3/mm3 4.6-10.2 neutrophils as percent of blood leukocytes 69.3 % 42.2-75.2 Lab Report: CBC, Comp. Metabolic Panel, Prostatic Specific Ag - Chemistry sodium, serum 141 mmol/L 114-470 0860/07/06 potassium, serum 4.4 mmol/L 3.5-5.2 chloride, serum [...] Panel - Chemistry sodium, serum 137 mmol/L 091-144 3830/11/14 potassium, serum 4.4 mmol/L 3.5-5.2 chloride, serum [...] 8.0 % 4.3-6.0 cholesterol, serum 130 mg/dL 116-196 8525/11/14 triglyceride, serum, fasting 288 mg/dL 30-200 HDL cholesterol, serum 33 mg/dL 32-96 LDL cholesterol, serum 39 mg/dL 0-130 Lab Report: Comp. Metabolic Panel, HGBA1 C, Lipid Panel, Prothrombin Time - Chemistry carbon dioxide, venous blood 29.0 mmol/L 21.0-32 [...] 7.6 % 4.3-6.0 cholesterol, serum 117 mg/dL 438-817 4713/12/02 triglyceride, serum, fasting 226 mg/dL 30-200 HDL cholesterol, serum 30 mg/dL 32-96 LDL cholesterol, serum 42 mg/dL 0-130 chloride, serum 101 mmol/L 98-107 potassium, serum 4.4 mmol/L 3.5-5.2 sodium, serum 136 mmol/L 136-145 Lab Report: Comp. Metabolic Panel, HGBA1 C, [...] 7.0 % 4.3-6.0 cholesterol, serum 120 mg/dL 723-369 1357/07/06 triglyceride, serum, fasting 186 mg/dL 30-200 HDL [...] 16.0 SECS s 11.1-13.4 prothrombin time (patient) 18.6 SECS s 11.1-13.4 international normalized ratio (INR) 2.3 1.0-3.5 prothrombin time (patient) 18.6 SECS s 11.1-13.4 international normalized ratio (INR) 2.2 1.0-3.5 prothrombin time (patient) 19.9 SECS s 11.1-13.4 international normalized ratio (INR) 2.6 1.0-3.5 Encounters Code Encounter Date Provider Facility CPT-71989 Level 3 Est. Patient 09:37:15 CDT Mitch W L ee [facility] CPT-66404 Level 3 Est. Patient 17:01:00 CLIENT REPORTING ASSOCIATE Mitch W L janelle [facility] CPT-90081 Level 3 Est. Patient 13:53:19 CLIENT REPORTING ASSOCIATE Mitch W L janelle [facility] CPT-46253 Level 3 Est. Patient 19:19:37 CLIENT REPORTING ASSOCIATE Mitch W L ee [facility] CPT-42376 Level 3 Est. Patient 13:25:53 CLIENT REPORTING ASSOCIATE Tavo toure MD [facility] CPT-97106 Level 3 Est. Patient 18:17:28 CDT Mitch W L janelle [facility] CPT-67511 Level 3 Est. Patient 15:22:57 CDT Mitch W L janelle [facility] CPT-76312 Level 3 Est. Patient 18:21:50 CDT Mitch W L ee [facility] CPT-96270 Level 3 Est. Patient 18:20:38 CDT Mitch W L ee [facility] CPT-11882 Level 3 Est. Patient 15:37:55 CDT Mitch W L ee [facility] CPT-80502 Level 2 Est. Patient 15:54:44 CDT Carmine benton MD [facility]-46322 Level 3 Est. Patient 21:46:01 CLIENT REPORTING ASSOCIATE Mitch luis [facility] CPT-73515 Level 3 Est. Patient 22:15:50 CDT Mitch luis [facility] CPT-76709 Level 3 Est. Patient 10:48:15 CDT Mitch luis [facility] CPT-04300 Level 3 Est. Patient 23:20:57 CDT Tavo toure MD [facility] CPT-09404 Level 3 Est. Patient 16:26:13 CDT Mitch luis [facility] Procedures Code Procedure Name Date Entry Date Standard Desc ription CPT-50107 No Charge Offi Visit 21:36:07 CDT 1 CPT-99687 Venipuncture Draw Fee 10:13:28 CLIENT REPORTING ASSOCIATE CPT-22559 Venipuncture Draw Fee 08:31:11 CDT CPT-16526 Aspir/Inject Med Joint 18:17:28 CDT CPT-42817 Venipuncture Draw Fee 10:13:30 CDT CPT-23317 Venipuncture Draw Fee 08:31:43 CLIENT REPORTING ASSOCIATE CPT-JTINJ Joint Injection 18:34:50 CDT CPT-77748 Knee 3V 12:25:09 CDT CPT-71297 Venipuncture Draw Fee 12:15:57 CDT CPT-060 Medical Surveillance Exam 21:31:43 CDT 2011 CPT-27427 Venipuncture Draw Fee 08:32:05 CLIENT REPORTING ASSOCIATE CPT-OV Office Visit 18:19:06 CDT
--- OUTSIDE RECORDS SUMMARY | 2020-01-18 13:06 | XMS REPORT | Clinical Summary ---
Author Author Admin, Mitch Leon Organization [facility] Address Unknown Phone Unavailable Allergies, Adverse Reactions, [...] by mouth twice a day 2017 FAMOTIDINE 79150945937 No Longer Active Mitch Urbina DO Active COLCRYS 0.6 MG ORAL TABLET 1 tab qid prn gout C OLCHICINE 03618549759 No Longer Active Mitch Urbina DO Active GLIMEPIRIDE 2 MG ORAL TABLET 1 po BID GLIMEPIRID E 97346359205 Active Renee Ocononr ELECTRIC WIRER Active KEFLEX 500 MG ORAL CAPSULE 1 po qid CEPHALEXI N 71637315106 No Longer Active Mitch Urbina DO Active LOSARTAN POTASSIUM 100 MG ORAL TABLET 1 pill by mouth daily, for blood pressure LOSARTAN POTASSIUM 20192760600 Active Ana Wallace Active AMLODIPINE BESYLATE 5 MG ORAL TABLET 1 tablet by mouth daily 201 01/20/04 AMLODIPINE BESYLATE 69594810908 No Longer Active Joe fulton APRN Active MITIGARE 0.6 MG ORAL CAPSULE 2 capsules at onset of go ut pain, then take one capsule at 1 hour if symptoms persist. COLCHICINE 59 872454053 Active Mitch Urbina DO Active COUMADIN 1 MG ORAL TABLET 2 tabs orally daily with the 5mg tab to equal 7mg daily WARFARIN SODIUM 28311890711 Active Ana Wallace Active INVOKANA 100 MG ORAL TABLET 1 tablet orally daily CANAGLIFLOZIN 62630240828 Active Mitch Urbina DO Active MINOXIDIL 2.5 MG ORAL TABLET 1 tablet daily for high blood press ure MINOXIDIL 60355825713 Active Mitch Urbina DO Active MECLIZINE HCL 25 MG ORAL TABLET 1 po tid 3 days, then 1/2 ta b tid 3 days MECLIZINE HCL 58631840546 No Longer Active Corey SEGURA Active ALLOPURINOL 300 MG ORAL TABLET Take 1 tablet by mouth daily 2012 ALLOPURINOL 20022498102 No Longer Active Corey SEGURA Active CLONIDINE HCL 0.1 MG ORAL TABLET 1 po bid 7 days, then 1/2 t ab po bid 7 days CLONIDINE HCL 07552345377 No Longer Active Corey SEGURA Active COUMADIN 5 MG ORAL TABLET 1 tab PO daily WARFAR IN SODIUM 48934762895 Active Mitch Urbina DO Active COUMADIN 4 MG ORAL TABLET 1 tablet daily WARFAR IN SODIUM 67873098794 No Longer Active Corey SEGURA Active POLYTRIM 48044-1.1 UNIT/ML-% OPHTHALMIC SOLUTION 1 rui p in affected eye every 3 hours while awake x 7 days POLYMYXIN B-TRIMETHOP RIM 53960051888 No Longer Active Corey SEGURA Active LOSARTAN POTASSIUM-HCTZ 100-12.5 MG ORAL TABLET 1 by m outh daily for high blood pressure LOSARTAN POTASSIUM-HCTZ 20197408603 No Longer A ctive Mitch Urbina DO Active LISINOPRIL-HYDROCHLOROTHIAZIDE 20-12.5 MG ORAL TABLET 1 tab by m outh daily LISINOPRIL-HYDROCHLOROTHIAZIDE 31956530580 No Longer Active Mitch Urbina DO Active LISINOPRIL 20 MG ORAL TABLET 1 tab po at HS LIS INOPRIL 14355639507 No Longer Active Mitch Urbina DO Active COUMADIN 5 MG ORAL TABLET 1 by mouth every other day 2 WARFARIN SODIUM 93977426041 No Longer Active Mitch Urbina DO Active COUMADIN 6 MG ORAL TABLET 1 by mouth every other day 2 WARFARIN SODIUM 30827094113 No Longer Active Mitch Urbina DO Active SIMVASTATIN 40 MG ORAL TABLET 1 tab daily at bedtime SIMVASTATIN 00832862975 Active Mitch Urbina DO Active SIMVASTATIN 20 MG ORAL TABLET 1 tab daily at bedtime 2 SIMVASTATIN 61280647624 No Longer Active Mitch Urbina DO Active LOVENOX 100 MG/ML SUBCUTANEOUS SOLUTION One injection twice a da y ENOXAPARIN SODIUM 74055533255 No Longer Active Carmine Yusuf MD Active JANUVIA 50 MG ORAL TABLET Take one by mouth daily SITAGLIPTIN PHOSPHATE 31844749520 Active Mitch W Carlitos DO Active JANUVIA 100 MG ORAL TABLET 1/2 by mouth every day 2011 SITAGLIPTIN PHOSPHATE 27914276597 No Longer Active Bijal Segal RN Acti ve METFORMIN HCL 500 MG ORAL TABLET 2 by mouth twice daily METFORMIN HCL 09830827706 Active Mitch Arnol Urbina DO Active COLCRYS 0.6 MG ORAL TABLET 1 po q 6 hours prn gout pain COLCHICINE 99361739502 No Longer Active Camila Reese Active LISINOPRIL 5 MG ORAL TABLET 1 by mouth every day 11/17 LISINOPRIL 20558699016 No Longer Active Nguyen Perez Active KLOR-CON 20 MEQ ORAL PACKET Take one by mouth daily 09/10/08 POTASSIUM CHLORIDE 19152419725 No Longer Active Nguyen Perez Active FUROSEMIDE 40 MG ORAL TABLET 1 by mouth daily F UROSEMIDE 17745741765 No Longer Active Nguyen Perez Active PROVIGIL 200 MG ORAL TABLET 1/2 tab po q day MODA FINIL 62600395624 Active Renee Elvin BURNETTN Active PROVIGIL 100 MG ORAL TABLET Take one by mouth daily 08/20/04 MODAFINIL 09991948923 No Longer Active Mitch Urbina DO Active BACTRIM DS 800-160 MG ORAL TABLET 1 tab by mouth twice daily 201 10/19/09 TRIMETHOPRIM-SULFAMETHOXAZOLE 70249392949 No Longer Active C alberto Hays MD Active ADULT ASPIRIN LOW STRENGTH 81 MG ORAL TABLET DISINTEGR ATING 1 by mouth every daily ASPIRIN 64932953702 Active Mitch Urbina DO Ac tive METOPROLOL TARTRATE 50 MG ORAL TABLET 1 by mouth twice daily METOPROLOL TARTRATE 71556249727 Active Mitch Urbina DO Active BACTRIM DS 800-160 MG ORAL TABLET 1 tab by mouth twice daily 201 10/19/09 BACTRIM DS 800-160 MG ORAL TABLET 017624 TRIMETHOPRIM-SULFAMETHOXAZOLE Inactive PROVIGIL 100 MG ORAL TABLET Take one by mouth daily 08/20/04 PROVIGIL 100 MG ORAL TABLET 221547 MODAFINIL Inactive FUROSEMIDE 40 MG ORAL TABLET 1 by mouth daily FUROSEMIDE 40 MG ORAL TABLET 492386 FUROSEMIDE Inactive KLOR-CON 20 MEQ ORAL PACKET Take one by mouth daily 09/10/08 KLOR- CON 20 MEQ ORAL PACKET 4474572 POTASSIUM CHLORIDE Inactive LISINOPRIL 5 MG ORAL TABLET 1 by mouth every day 11/17 LISINOPRIL 5 MG ORAL TABLET 238375 LISINOPRIL Inactive COLCRYS 0.6 MG ORAL TABLET 1 po q 6 hours prn gout pain COLCRYS 0.6 MG ORAL TABLET 991121 COLCHICINE Inactive JANUVIA 100 MG ORAL TABLET 1/2 by mouth every day 2011 JANUVIA 100 MG ORAL TABLET SITAGLIPTIN PHOSPHATE Inactive SIMVASTATIN 20 MG ORAL TABLET 1 tab daily at bedtime 2 SIMVASTATIN 20 MG ORAL TABLET 195505 SIMVASTATIN Inactive COUMADIN 6 MG ORAL TABLET 1 by mouth every other day COUMADIN 6 MG ORAL TABLET 429141 WARFARIN SODIUM Inactive COUMADIN 5 MG ORAL TABLET 1 by mouth every other day COUMADIN 5 MG ORAL TABLET 692855 WARFARIN SODIUM Inactive LISINOPRIL 20 MG ORAL TABLET 1 tab po at HS LISINOPRIL 20 MG ORAL TABLET 435542 LISINOPRIL Inactive LISINOPRIL-HYDROCHLOROTHIAZIDE 20-12.5 MG ORAL TABLET 1 tab by m outh daily LISINOPRIL-HYDROCHLOROTHIAZIDE 20-12.5 MG ORAL TABLET 162521 LISINOPRIL-HYDROCHLOROTHIAZIDE Inactive POLYTRIM 76069-3.1 UNIT/ML-% OPHTHALMIC SOLUTION 1 rui p in affected eye every 3 hours while awake x 7 days POLYTRIM 1000 0-0.1 UNIT/ML-% OPHTHALMIC SOLUTION 412576 POLYMYXIN B-TRIMETHOPRIM Inactive COUMADIN 4 MG ORAL TABLET 1 tablet daily COUMADIN 4 MG ORAL TABLET 556018 WARFARIN SODIUM Inactive CLONIDINE HCL 0.1 MG ORAL TABLET 1 po bid 7 days, then 1/2 t ab po bid 7 days CLONIDINE HCL 0.1 MG ORAL TABLET 218027 CLONIDIN E HCL Inactive ALLOPURINOL 300 MG ORAL TABLET Take 1 tablet by mouth daily 2012 ALLOPURINOL 300 MG ORAL TABLET 314708 ALLOPURINOL I nactive MECLIZINE HCL 25 MG ORAL TABLET 1 po tid 3 days, then 1/2 ta b tid 3 days MECLIZINE HCL 25 MG ORAL TABLET 883258 MECLIZINE HCL Inactive AMLODIPINE BESYLATE 5 MG ORAL TABLET 1 tablet by mouth daily 201 01/20/04 AMLODIPINE BESYLATE 5 MG ORAL TABLET 205345 AMLODIPINE BESYLATE Inactive KEFLEX 500 MG ORAL CAPSULE 1 po qid K EFLEX 500 MG ORAL CAPSULE 040970 CEPHALEXIN Inactive COLCRYS 0.6 MG ORAL TABLET 1 tab qid prn gout COLCRYS 0.6 MG ORAL TABLET 845846 COLCHICINE Inactive FAMOTIDINE 20 MG ORAL TABLET by mouth twice a day 2017 FAMOTIDINE 20 MG ORAL TABLET 552633 FAMOTIDINE Inactive LOVENOX 100 MG/ML SUBCUTANEOUS SOLUTION One injection twice a da y LOVENOX 100 MG/ML SUBCUTANEOUS SOLUTION 813889 ENOXAPAR IN SODIUM Inactive Vital Signs Date [...] - Chem istry sodium, serum 139 mmol/L 419-028 9422/07/17 potassium, serum 4.2 mmol/L 3.5-5.2 chloride, serum 102 mmol/L 98-107 carbon dioxide, venous blood 28.9 mmol/L 21.0-32 .0 blood glucose 211 mg/dL 65-110 calcium, serum 10.6 mg/dL 8.5-10.1 urea nitrogen, blood 29 mg/dL 7-18 creatinine, serum 1.24 mg/dL 0.60-1.30 sodium, serum 141 mmol/L 266-218 9688/08/07 potassium, serum 4.5 mmol/L 3.5-5.2 chloride, serum [...] ... - Chemistry sodium, serum 144 mmol/L 517-598 4740/06/12 carbon dioxide, venous blood 26.6 mmol/L 21.0-32 [...] HGBA1C - Chemistry cholesterol, serum 136 mg/dL 677-646 9791/12/06 triglyceride, serum, fasting 247 mg/dL 30-200 HDL cholesterol, serum 41 mg/dL 32-60 LDL cholesterol, serum 46 mg/dL 0-130 aspartate aminotransferase (SGOT), serum 22 U/L 15-37 alanine aminotransferase (SGPT), serum 30 U/L 12-78 bilirubin, serum, total 0.80 mg/dL 0.00-1.00 hemoglobin A1C, blood, as % of total hemoglobin 6.4 % 4.3-6.0 Encounters Code Encounter Date Provider Facility CPT-97572 Level 3 Est. Patient 18:25:53 CDT Mitch luis [facility] CPT-15618 Level 3 Est. Patient 19:43:34 CDT Mitch luis [facility] CPT-19301 Level 4 Est. Patient 09:30:18 CDT Mitch luis DO [facility]-26359 Level 3 Est. Patient 15:10:14 CDT Joe kamara [facility] CPT-88232 Level 3 Est. Patient 15:03:46 CDT Devonjustincarlitos kamara [facility]-35843 Level 3 Est. Patient 14:21:06 CDT Mitch luis [facility]-03327 Level 3 Est. Patient 14:52:06 CDT Joe Jason kamara [facility]-37898 Level 3 Est. Patient 09:34:30 COLLECTION CLERK Mitch luis [facility]-95237 Level 3 Est. Patient 09:37:15 CDT Mitch luis [facility]-05181 Level 3 Est. Patient 17:01:00 COLLECTION CLERK Mitch luis [facility] CPT-99411 Level 3 Est. Patient 13:53:19 COLLECTION CLERK Mitch luis [facility] CPT-90574 Level 3 Est. Patient 19:19:37 COLLECTION CLERK Mitch luis [facility] CPT-31861 Level 3 Est. Patient 13:25:53 COLLECTION CLERK Tavo toure MD [facility]-32549 Level 3 Est. Patient 18:17:28 CDT Mitch luis [facility] CPT-26628 Level 3 Est. Patient 15:22:57 CDT Mitch luis [facility] CPT-34573 Level 3 Est. Patient 18:21:50 CDT Mitch Ambrose L janelle [facility]-98201 Level 3 Est. Patient 18:20:38 CDT Mitch W L ee [facility] CPT-82625 Level 3 Est. Patient 15:37:55 CDT Mitch Ambrose L ee [facility] CPT-28145 Level 2 Est. Patient 15:54:44 CDT Carmine benton MD [facility] CPT-34388 Level 3 Est. Patient 21:46:01 COLLECTION CLERK Mitch luis [facility] CPT-30022 Level 3 Est. Patient 22:15:50 CDT Mitch luis [facility] CPT-01057 Level 3 Est. Patient 10:48:15 CDT Mitch Arnol luis [facility] CPT-28520 Level 3 Est. Patient 23:20:57 CDT Tavo toure MD [facility] CPT-68757 Level 3 Est. Patient 16:26:13 CDT Mitch luis [facility] Procedures Code Procedure Name Date Entry Date Standard Desc ription CPT-JTINJ Asp/Joint Injection 18:47:02 CDT CPT-07931 Venipuncture Draw Fee 09:26:17 CDT CPT-27380 PT/INR - LAB USE ONLY 13:32:49 COLLECTION CLERK CPT-85390 Venipuncture Draw Fee 13:32:49 COLLECTION CLERK CPT-96383 PT/INR - LAB USE ONLY 10:34:49 COLLECTION CLERK CPT-23866 Venipuncture Draw Fee 10:34:48 COLLECTION CLERK CPT-13676 PT/INR - LAB USE ONLY 09:22:03 COLLECTION CLERK CPT-21983 Venipuncture Draw Fee 09:22:02 COLLECTION CLERK CPT-87337 Hemoccult IFOBT - LAB USE ONLY 10:27:22 CDT CPT-66598 Venipuncture Draw Fee 08:27:08 CDT CPT-53855 Liver Profile - LAB USE ONLY 08:27:07 CDT 2 CPT-09246 Microalbumin - LAB USE ONLY 08:27:07 CDT 20 25/05/09 CPT-25676 PT/INR - LAB USE ONLY 08:27:07 CDT CPT-08160 HGBA1C - LAB USE ONLY 08:27:07 CDT CPT-35393 CBC - LAB USE ONLY 08:27:07 CDT CPT-30772 Venipuncture Draw Fee 11:09:14 CDT CPT-28709 Venipuncture Draw Fee 08:32:21 COLLECTION CLERK CPT-60394 Venipuncture Draw Fee 09:38:56 COLLECTION CLERK CPT-14723 No Charge Offi Visit 21:36:07 CDT 1 CPT-01499 Venipuncture Draw Fee 10:13:28 COLLECTION CLERK CPT-25117 Venipuncture Draw Fee 08:31:11 CDT CPT-23911 Aspir/Inject Med Joint 18:17:28 CDT CPT-47991 Venipuncture Draw Fee 10:13:30 CDT CPT-51993 Venipuncture Draw Fee 08:31:43 COLLECTION CLERK CPT-JTINJ Joint Injection 18:34:50 CDT CPT-89569 Knee 3V 12:25:09 CDT CPT-46617 Venipuncture Draw Fee 12:15:57 CDT CPT-060 Medical Surveillance Exam 21:31:43 CDT 2011 CPT-58996 Venipuncture Draw Fee 08:32:05 COLLECTION CLERK CPT-OV Office Visit 18:19:06 CDT
--- OUTSIDE RECORDS SUMMARY | 2020-01-18 13:06 | XMS REPORT | Clinical Summary ---
[...] Coronary atherosclerosis of unspecified type of vessel, [place] or graft EDEMA 782.3 Resolved Mitch Urbina [...] O Sebaceous cyst, infected ICD-706.2 Inactive Mithc W Carlitos DO Cellulitis ICD-682.9 Inactive Mitch W Carlitos DO 10/23 CELLULITIS, GROIN, LEFT ICD-682.2 Inactive Bruc e W Carlitos DO Medication List Medication Instructions Start Date Stop Date Generic Name NDC Status Provider Patient Instruction FAMOTIDINE 20 MG ORAL TABLET by mouth twice a day 2017 FAMOTIDINE 57816976093 No Longer Active Mitch Urbina DO Active COLCRYS 0.6 MG ORAL TABLET 1 tab qid prn gout C OLCHICINE 61959452434 No Longer Active Mitch Urbina DO Active GLIMEPIRIDE 2 MG ORAL TABLET 1 po BID GLIMEPIRID E 68580148600 Active Renee Oconnor THERAPIST OCCUPATIONAL Active KEFLEX 500 MG ORAL CAPSULE 1 po qid CEPHALEXI N 19145961674 No Longer Active Mitch Urbina DO Active LOSARTAN POTASSIUM 100 MG ORAL TABLET 1 pill by mouth daily, for blood pressure LOSARTAN POTASSIUM 04000544434 Active Ana Wallace Active AMLODIPINE BESYLATE 5 MG ORAL TABLET 1 tablet by mouth daily 201 01/20/04 AMLODIPINE BESYLATE 32758924484 No Longer Active Joe uflton APRN Active MITIGARE 0.6 MG ORAL CAPSULE 2 capsules at onset of go ut pain, then take one capsule at 1 hour if symptoms persist. COLCHICINE 59 212849514 Active Mitch Urbina DO Active COUMADIN 1 MG ORAL TABLET 2 tabs orally daily with the 5mg tab to equal 7mg daily WARFARIN SODIUM 51356964356 Active Ana Wallace Active INVOKANA 100 MG ORAL TABLET 1 tablet orally daily CANAGLIFLOZIN 32283883276 Active Mitch Urbina DO Active MINOXIDIL 2.5 MG ORAL TABLET 1 tablet daily for high blood press ure MINOXIDIL 37370496024 Active Mitch Urbina DO Active MECLIZINE HCL 25 MG ORAL TABLET 1 po tid 3 days, then 1/2 ta b tid 3 days MECLIZINE HCL 70367050821 No Longer Active Corey SEGURA Active ALLOPURINOL 300 MG ORAL TABLET Take 1 tablet by mouth daily 2012 ALLOPURINOL 57661165339 No Longer Active Corey SEGURA Active CLONIDINE HCL 0.1 MG ORAL TABLET 1 po bid 7 days, then 1/2 t ab po bid 7 days CLONIDINE HCL 46385821396 No Longer Active Corey SEGURA Active COUMADIN 5 MG ORAL TABLET 1 tab PO daily WARFAR IN SODIUM 24508868524 Active Mitch Urbina DO Active COUMADIN 4 MG ORAL TABLET 1 tablet daily WARFAR IN SODIUM 22456748946 No Longer Active Corey SEGURA Active POLYTRIM 68408-1.1 UNIT/ML-% OPHTHALMIC SOLUTION 1 rui p in affected eye every 3 hours while awake x 7 days POLYMYXIN B-TRIMETHOP RIM 65970089769 No Longer Active Corey SEGURA Active LOSARTAN POTASSIUM-HCTZ 100-12.5 MG ORAL TABLET 1 by m outh daily for high blood pressure LOSARTAN POTASSIUM-HCTZ 70374467322 No Longer A ctive Mitch Urbina DO Active LISINOPRIL-HYDROCHLOROTHIAZIDE 20-12.5 MG ORAL TABLET 1 tab by m outh daily LISINOPRIL-HYDROCHLOROTHIAZIDE 93599591373 No Longer Active Mitch Urbina DO Active LISINOPRIL 20 MG ORAL TABLET 1 tab po at HS LIS INOPRIL 63200642525 No Longer Active Mitch Urbina DO Active COUMADIN 5 MG ORAL TABLET 1 by mouth every other day 2 WARFARIN SODIUM 24955973874 No Longer Active Mitch Urbina DO Active COUMADIN 6 MG ORAL TABLET 1 by mouth every other day 2 WARFARIN SODIUM 83985253527 No Longer Active Mitch Urbina DO Active SIMVASTATIN 40 MG ORAL TABLET 1 tab daily at bedtime SIMVASTATIN 08363367783 Active Mitch Urbina DO Active SIMVASTATIN 20 MG ORAL TABLET 1 tab daily at bedtime 2 SIMVASTATIN 57627605844 No Longer Active Mitch Urbina DO Active LOVENOX 100 MG/ML SUBCUTANEOUS SOLUTION One injection twice a da y ENOXAPARIN SODIUM 26394085420 No Longer Active Carmine Yusuf MD Active JANUVIA 50 MG ORAL TABLET Take one by mouth daily SITAGLIPTIN PHOSPHATE 59985991103 Active Mitch W Carlitos DO Active JANUVIA 100 MG ORAL TABLET 1/2 by mouth every day 2011 SITAGLIPTIN PHOSPHATE 79559261215 No Longer Active Bijal Segal RN Acti ve METFORMIN HCL 500 MG ORAL TABLET 2 by mouth twice daily METFORMIN HCL 76489589746 Active Mitch Urbina DO Active COLCRYS 0.6 MG ORAL TABLET 1 po q 6 hours prn gout pain COLCHICINE 25709589504 No Longer Active Camila Reese Active LISINOPRIL 5 MG ORAL TABLET 1 by mouth every day 11/17 LISINOPRIL 17145094219 No Longer Active Ngyuen Perez Active KLOR-CON 20 MEQ ORAL PACKET Take one by mouth daily 09/10/08 POTASSIUM CHLORIDE 63613664568 No Longer Active Nguyen Perez Active FUROSEMIDE 40 MG ORAL TABLET 1 by mouth daily F UROSEMIDE 54539281415 No Longer Active Nguyen Perez Active PROVIGIL 200 MG ORAL TABLET 1/2 tab po q day MODA FINIL 95492784302 Active Renee Elvin BURNETTN Active PROVIGIL 100 MG ORAL TABLET Take one by mouth daily 08/20/04 MODAFINIL 30723363675 No Longer Active Mitch Urbina DO Active BACTRIM DS 800-160 MG ORAL TABLET 1 tab by mouth twice daily 201 10/19/09 TRIMETHOPRIM-SULFAMETHOXAZOLE 26656563159 No Longer Active Elian Hays MD Active ADULT ASPIRIN LOW STRENGTH 81 MG ORAL TABLET DISINTEGR ATING 1 by mouth every daily ASPIRIN 81095074889 Active Mitch Urbina DO Ac tive METOPROLOL TARTRATE 50 MG ORAL TABLET 1 by mouth twice daily METOPROLOL TARTRATE 29072207702 Active Mitch Urbina DO Active BACTRIM DS 800-160 MG ORAL TABLET 1 tab by mouth twice daily 201 10/19/09 BACTRIM DS 800-160 MG ORAL TABLET 857054 TRIMETHOPRIM-SULFAMETHOXAZOLE Inactive PROVIGIL 100 MG ORAL TABLET Take one by mouth daily 20 08/20/04 PROVIGIL 100 MG ORAL TABLET 746382 MODAFINIL Inactive FUROSEMIDE 40 MG ORAL TABLET 1 by mouth daily FUROSEMIDE 40 MG ORAL TABLET 381255 FUROSEMIDE Inactive KLOR-CON 20 MEQ ORAL PACKET Take one by mouth daily 09/10/08 KLOR- CON 20 MEQ ORAL PACKET 2206723 POTASSIUM CHLORIDE Inactive LISINOPRIL 5 MG ORAL TABLET 1 by mouth every day 11/17 LISINOPRIL 5 MG ORAL TABLET 808584 LISINOPRIL Inactive COLCRYS 0.6 MG ORAL TABLET 1 po q 6 hours prn gout pain COLCRYS 0.6 MG ORAL TABLET 789548 COLCHICINE Inactive JANUVIA 100 MG ORAL TABLET 1/2 by mouth every day 2011 JANUVIA 100 MG ORAL TABLET SITAGLIPTIN PHOSPHATE Inactive SIMVASTATIN 20 MG ORAL TABLET 1 tab daily at bedtime 2 SIMVASTATIN 20 MG ORAL TABLET 931170 SIMVASTATIN Inactive COUMADIN 6 MG ORAL TABLET 1 by mouth every other day COUMADIN 6 MG ORAL TABLET 231147 WARFARIN SODIUM Inactive COUMADIN 5 MG ORAL TABLET 1 by mouth every other day 2 COUMADIN 5 MG ORAL TABLET 228968 WARFARIN SODIUM Inactive LISINOPRIL 20 MG ORAL TABLET 1 tab po at HS LISINOPRIL 20 MG ORAL TABLET 839115 LISINOPRIL Inactive LISINOPRIL-HYDROCHLOROTHIAZIDE 20-12.5 MG ORAL TABLET 1 tab by m outh daily LISINOPRIL-HYDROCHLOROTHIAZIDE 20-12.5 MG ORAL TABLET 273334 LISINOPRIL-HYDROCHLOROTHIAZIDE Inactive POLYTRIM 52390-9.1 UNIT/ML-% OPHTHALMIC SOLUTION 1 rui p in affected eye every 3 hours while awake x 7 days POLYTRIM 1000 0-0.1 UNIT/ML-% OPHTHALMIC SOLUTION 511781 POLYMYXIN B-TRIMETHOPRIM Inactive COUMADIN 4 MG ORAL TABLET 1 tablet daily COUMADIN 4 MG ORAL TABLET 232907 WARFARIN SODIUM Inactive CLONIDINE HCL 0.1 MG ORAL TABLET 1 po bid 7 days, then 1/2 t ab po bid 7 days CLONIDINE HCL 0.1 MG ORAL TABLET 760529 CLONIDIN E HCL Inactive ALLOPURINOL 300 MG ORAL TABLET Take 1 tablet by mouth daily 2012 ALLOPURINOL 300 MG ORAL TABLET 417369 ALLOPURINOL I nactive MECLIZINE HCL 25 MG ORAL TABLET 1 po tid 3 days, then 1/2 ta b tid 3 days MECLIZINE HCL 25 MG ORAL TABLET 641247 MECLIZINE HCL Inactive AMLODIPINE BESYLATE 5 MG ORAL TABLET 1 tablet by mouth daily 201 01/20/04 AMLODIPINE BESYLATE 5 MG ORAL TABLET 235291 AMLODIPINE BESYLATE Inactive KEFLEX 500 MG ORAL CAPSULE 1 po qid K EFLEX 500 MG ORAL CAPSULE 694571 CEPHALEXIN Inactive COLCRYS 0.6 MG ORAL TABLET 1 tab qid prn gout COLCRYS 0.6 MG ORAL TABLET 982193 COLCHICINE Inactive FAMOTIDINE 20 MG ORAL TABLET by mouth twice a day 2017 FAMOTIDINE 20 MG ORAL TABLET 609658 FAMOTIDINE Inactive LOVENOX 100 MG/ML SUBCUTANEOUS SOLUTION One injection twice a da y LOVENOX 100 MG/ML SUBCUTANEOUS SOLUTION 652689 ENOXAPAR IN SODIUM Inactive Vital Signs Date [...] - Chem istry sodium, serum 139 mmol/L 106-809 2774/07/17 urea nitrogen, blood 29 mg/dL 7-18 creatinine, serum 1.24 mg/dL 0.60-1.30 potassium, serum 4.2 mmol/L 3.5-5.2 chloride, serum 102 mmol/L 98-107 carbon dioxide, venous blood 28.9 mmol/L 21.0-32 .0 blood glucose 211 mg/dL 65-110 calcium, serum 10.6 mg/dL 8.5-10.1 sodium, serum 141 mmol/L 271-689 1400/08/07 urea nitrogen, blood 26 mg/dL 7-18 creatinine, [...] ... - Chemistry sodium, serum 144 mmol/L 485-925 6766/06/12 creatinine, serum 1.32 mg/dL 0.55-1.30 alanine aminotransferase [...] HGBA1C - Chemistry cholesterol, serum 136 mg/dL 104-773 5391/12/06 bilirubin, serum, total 0.80 mg/dL 0.00-1.00 hemoglobin A1C, blood, as % of total hemoglobin 6.4 % 4.3-6.0 triglyceride, serum, fasting 247 mg/dL 30-200 HDL cholesterol, serum 41 mg/dL 32-60 LDL cholesterol, serum 46 mg/dL 0-130 aspartate aminotransferase (SGOT), serum 22 U/L 15-37 alanine aminotransferase (SGPT), serum 30 U/L 78 Encounters Code Encounter Date Provider Facility CPT-44130 Level 3 Est. Patient 18:25:53 CDT Mitch luis [facility] CPT-71078 Level 3 Est. Patient 19:43:34 CDT Mitch luis [facility] CPT-30356 Level 4 Est. Patient 09:30:18 CDT Mitch luis [facility]-30969 Level 3 Est. Patient 15:10:14 CDT Joe kamara [facility] CPT-54062 Level 3 Est. Patient 15:03:46 CDT Devonjustincarlitos kamara [facility]-42638 Level 3 Est. Patient 14:21:06 CDT Mitch luis [facility]-35970 Level 3 Est. Patient 14:52:06 CDT Joe Jason kamara [facility]-22695 Level 3 Est. 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 Patient 09:37:15 CDT Mitch luis [facility]-80097 Level 3 Est. Patient 17:01:00 PRINCIPAL SYSTEMS ARCHITECT Mitch luis [facility] CPT-27004 Level 3 Est. Patient 13:53:19 PRINCIPAL SYSTEMS ARCHITECT Mitch luis [facility] CPT-53628 Level 3 Est. Patient 19:19:37 PRINCIPAL SYSTEMS ARCHITECT Mitch W L janelle [facility] CPT-48345 Level 3 Est. Patient 13:25:53 PRINCIPAL SYSTEMS ARCHITECT Tavo toure MD [facility]-71746 Level 3 Est. Patient 18:17:28 CDT Mitch luis [facility] CPT-59283 Level 3 Est. Patient 15:22:57 CDT Micth W Nona luis [facility] CPT-96937 Level 3 Est. Patient 18:21:50 CDT Mitch W L janelle [facility]-45459 Level 3 Est. Patient 18:20:38 CDT Mitch W L ee [facility] CPT-55404 Level 3 Est. Patient 15:37:55 CDT Mitch W L janelle [facility] CPT-80199 Level 2 Est. Patient 15:54:44 CDT Carmine benton MD [facility] CPT-37620 Level 3 Est. Patient 21:46:01 PRINCIPAL SYSTEMS ARCHITECT Mitch Castellano janelle [facility] CPT-05938 Level 3 Est. Patient 22:15:50 CDT Mitch luis [facility] CPT-11562 Level 3 Est. Patient 10:48:15 CDT Mitch luis [facility] CPT-53940 Level 3 Est. Patient 23:20:57 CDT Tavo toure MD [facility] CPT-96093 Level 3 Est. Patient 16:26:13 CDT Mitch luis [facility] Procedures Code Procedure Name Date Entry Date Standard Desc ription CPT-JTINJ Asp/Joint Injection 18:47:02 CDT CPT-41595 Venipuncture Draw Fee 09:26:17 CDT CPT-40834 PT/INR - LAB USE ONLY 13:32:49 PRINCIPAL SYSTEMS ARCHITECT CPT-92815 Venipuncture Draw Fee 13:32:49 PRINCIPAL SYSTEMS ARCHITECT CPT-50224 PT/INR - LAB USE ONLY 10:34:49 PRINCIPAL SYSTEMS ARCHITECT CPT-70738 Venipuncture Draw Fee 10:34:48 PRINCIPAL SYSTEMS ARCHITECT CPT-31972 PT/INR - LAB USE ONLY 09:22:03 PRINCIPAL SYSTEMS ARCHITECT CPT-91476 Venipuncture Draw Fee 09:22:02 PRINCIPAL SYSTEMS ARCHITECT CPT-38090 Hemoccult IFOBT - LAB USE ONLY 10:27:22 CDT CPT-68863 Venipuncture Draw Fee 08:27:08 CDT CPT-49113 Liver Profile - LAB USE ONLY 08:27:07 CDT 2 CPT-08908 Microalbumin - LAB USE ONLY 08:27:07 CDT 20 25/05/09 CPT-57399 PT/INR - LAB USE ONLY 08:27:07 CDT CPT-32542 HGBA1C - LAB USE ONLY 08:27:07 CDT CPT-90975 CBC - LAB USE ONLY 08:27:07 CDT CPT-91382 Venipuncture Draw Fee 11:09:14 CDT CPT-27113 Venipuncture Draw Fee 08:32:21 PRINCIPAL SYSTEMS ARCHITECT CPT-51905 Venipuncture Draw Fee 09:38:56 PRINCIPAL SYSTEMS ARCHITECT CPT-02078 No Charge Offi Visit 21:36:07 CDT 1 CPT-09718 Venipuncture Draw Fee 10:13:28 PRINCIPAL SYSTEMS ARCHITECT CPT-31023 Venipuncture Draw Fee 08:31:11 CDT CPT-91443 Aspir/Inject Med Joint 18:17:28 CDT CPT-54927 Venipuncture Draw Fee 10:13:30 CDT CPT-71795 Venipuncture Draw Fee 08:31:43 PRINCIPAL SYSTEMS ARCHITECT CPT-JTINJ Joint Injection 18:34:50 CDT CPT-27187 Knee 3V 12:25:09 CDT CPT-64858 Venipuncture Draw Fee 12:15:57 CDT CPT-060 Medical Surveillance Exam 21:31:43 CDT 2011 CPT-67355 Venipuncture Draw Fee 08:32:05 PRINCIPAL SYSTEMS ARCHITECT CPT-OV Office Visit 18:19:06 CDT
--- OUTSIDE RECORDS SUMMARY | 2020-01-18 13:06 | XMS REPORT | Clinical Summary ---
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 Mitch Ubrina DO REACTIVE HYPOGLYCEMIA ICD-251.2 Inactive Mitch Urbina [...] tab to equal 7mg daily WARFARIN SODIUM 92226629658 Active Norma Cazares Active COLCRYS 0.6 MG TABS 1 tab qid prn gout COLCHICINE 99465374126 Active Kathie Juan RPT,RMA Active INVOKANA 100 MG ORAL TABS 1 tablet orally daily CANAGLIFLOZIN 64078659338 Active Mitch Urbina DO Active MINOXIDIL 2.5 MG TABS 1 tablet daily for high blood pressure 10/23 MINOXIDIL 80512118248 Active Domi Rivera MA Active AMLODIPINE BESYLATE 5 MG TABS 1 tablet by mouth daily AMLODIPINE BESYLATE 42361967180 Active Mitch Urbina DO Active MECLIZINE HCL 25 MG TAB 1 po tid 3 days, then 1/2 tab tid 3 days MECLIZINE HCL 48674901126 No Longer Active Corey SEGURA Active ALLOPURINOL 300 MG TABS Take 1 tablet by mouth daily 2 ALLOPURINOL 12553039084 No Longer Active Corey SEGURA Activ e CLONIDINE HCL 0.1 MG TABS 1 po bid 7 days, then 1/2 tab po b id 7 days CLONIDINE HCL 36205642105 No Longer Active Corey SEGURA Active COUMADIN 5 MG TABS 1 tab PO daily WARFARIN SODIUM 68289228011 Active Mitch Urbina DO Active COUMADIN 4 MG TABS 1 tablet daily WARFARIN SODI UM 77080178872 No Longer Active Corey SEGURA Active POLYTRIM 16577-2.1 UNIT/ML-% SOLN 1 drop in affected e ye every 3 hours while awake x 7 days POLYMYXIN B-TRIMETHOPRIM 51535966560 N o Longer Active Corey SEGURA Active LOSARTAN POTASSIUM-HCTZ 100-12.5 MG TABS 1 by mouth da [place] for high blood pressure LOSARTAN POTASSIUM-HCTZ 09439978207 Active Stephy Urbina DO Active LISINOPRIL-HYDROCHLOROTHIAZIDE 20-12.5 MG TABS 1 tab by mouth da [place] LISINOPRIL-HYDROCHLOROTHIAZIDE 34681972904 No Longer Active Mitch luis DO Active LISINOPRIL 20 MG TABS 1 tab po at HS LISINOPRIL 59091728993 No Longer Active Mitch Urbina DO Active COUMADIN 5 MG TABS 1 by mouth every other day WARFARIN SODIUM 57097427463 No Longer Active Mitch Urbina DO Active COUMADIN 6 MG TABS 1 by mouth every other day WARFARIN SODIUM 17962476704 No Longer Active Mitch W Carlitos DO Active SIMVASTATIN 40 MG TABS 1 tab daily at bedtime S IMVASTATIN 63791019148 Active Mitch Arnol Urbina DO Active SIMVASTATIN 20 MG TABS 1 tab daily at bedtime S IMVASTATIN 17231773058 No Longer Active Mitch Urbina DO Active LOVENOX 100 MG/ML SC SOLN One injection twice a day 09/15/15 ENOXAPARIN SODIUM 27222718944 No Longer Active Carmine Navarrete ctive JANUVIA 50 MG TABS Take one by mouth daily DIEGO GLIPTIN PHOSPHATE 18514406135 Active Mitch Urbina DO Active JANUVIA 100 MG TABS 1/2 by mouth every day DIEGO GLIPTIN PHOSPHATE 44830271834 No Longer Active Bijal Segal RN Active METFORMIN HCL 500 MG TABS 2 by mouth twice daily METFORMIN HCL 10755140842 Active Mitch Urbina DO Active GLIMEPIRIDE 4 MG TABS 1 tab po bid GLIMEPIRIDE 338728 87938 Active Mitch Ambrose Carlitos DO Active COLCRYS 0.6 MG TABS 1 po q 6 hours prn gout pain 03/02 COLCHICINE 96261159845 No Longer Active Camila Reese Active LISINOPRIL 5 MG TABS 1 by mouth every day LISIN OPRIL 90280396623 No Longer Active Nguyen Perez Active KLOR-CON 20 MEQ PACK Take one by mouth daily 8 POTASSIUM CHLORIDE 54918721737 No Longer Active Nguyenmolly Perez Active FUROSEMIDE 40 MG TABS 1 by mouth daily FUROSEMI DE 07303077590 No Longer Active Nguyen Perez Active PROVIGIL 200 MG TABS 1/2 tab po q day MODAFINIL 77347 752328 Active Kathie Juan RPT,RMA Active PROVIGIL 100 MG TABS Take one by mouth daily MO DAFINIL 84031946207 No Longer Active Mitch Urbina DO Active BACTRIM DS 800-160 MG TAB 1 tab by mouth twice daily 2 TRIMETHOPRIM-SULFAMETHOXAZOLE 69279770299 No Longer Active Renan Hays MD Active FAMOTIDINE 20 MG TABS by mouth twice a day FAMOTI DINE 60443812479 Active Mitch Urbina DO Active ADULT ASPIRIN LOW STRENGTH 81 MG TBDP 1 by mouth every daily ASPIRIN 25802604625 Active Mitch Urbina DO Active METOPROLOL TARTRATE 50 MG TABS 1 by mouth twice daily METOPROLOL TARTRATE 12508164114 Active Mitch Urbina DO Active BACTRIM DS 800-160 MG TAB 1 tab by mouth twice daily 2 BACTRIM DS 800-160 MG TAB 922293 TRIMETHOPRIM-SULFAMETHOXAZOLE Inac tive PROVIGIL 100 MG TABS Take one by mouth daily 4 PROVIGIL 100 MG TABS 724888 MODAFINIL Inactive FUROSEMIDE 40 MG TABS 1 by mouth daily FU ROSEMIDE 40 MG TABS 689077 FUROSEMIDE Inactive KLOR-CON 20 MEQ PACK Take one by mouth daily 8 KLOR-CON 20 MEQ PACK 881473 POTASSIUM CHLORIDE Inactive LISINOPRIL 5 MG TABS 1 by mouth every day LISINOPRIL 5 MG TABS 049519 LISINOPRIL Inactive COLCRYS 0.6 MG TABS 1 po q 6 hours prn gout pain 03/02 COLCRYS 0.6 MG TABS 425757 COLCHICINE Inactive JANUVIA 100 MG TABS 1/2 by mouth every day JANUVI A 100 MG TABS SITAGLIPTIN PHOSPHATE Inactive SIMVASTATIN 20 MG TABS 1 tab daily at bedtime SIMVASTATIN 20 MG TABS 888091 SIMVASTATIN Inactive COUMADIN 6 MG TABS 1 by mouth every other day COUMADIN 6 MG TABS 419495 WARFARIN SODIUM Inactive COUMADIN 5 MG TABS 1 by mouth every other day COUMADIN 5 MG TABS 249341 WARFARIN SODIUM Inactive LISINOPRIL 20 MG TABS 1 tab po at HS [place]I NOPRIL 20 MG TABS 092845 LISINOPRIL Inactive LISINOPRIL-HYDROCHLOROTHIAZIDE 20-12.5 MG TABS 1 tab by mouth da rocky LISINOPRIL-HYDROCHLOROTHIAZIDE 20-12.5 MG TABS 519515 LISINOPRIL-HYDROCHLOROTHIAZIDE Inactive POLYTRIM 06049-2.1 UNIT/ML-% SOLN 1 drop in affected e ye every 3 hours while awake x 7 days POLYTRIM 85614-6.1 UNIT/ML-% SOLN 08393 7 POLYMYXIN B-TRIMETHOPRIM Inactive COUMADIN 4 MG TABS 1 tablet daily COUMADIN 4 MG TABS 673251 WARFARIN SODIUM Inactive CLONIDINE HCL 0.1 MG TABS 1 po bid 7 days, then 1/2 tab po b id 7 days CLONIDINE HCL 0.1 MG TABS 637015 CLONIDINE HCL I nactive ALLOPURINOL 300 MG TABS Take 1 tablet by mouth daily 2 ALLOPURINOL 300 MG TABS 229642 ALLOPURINOL Inactive MECLIZINE HCL 25 MG TAB 1 po tid 3 days, then 1/2 tab tid 3 days MECLIZINE HCL 25 MG TAB 439714 MECLIZINE HCL Inactive LOVENOX 100 MG/ML SC SOLN One injection twice a day 09/15/15 LOVENOX 100 MG/ML SC SOLN 627315 ENOXAPARIN SODIUM Inactive Vital Signs Date Name [...] Range Description Chart Maintenance: hemoccult added to [facility] - Chemistry occult blood, stool (E&M) Positive Lab Report: CBC - Hematology mean corpuscular hemoglobin, RBC 26.6 pg 27. 0-31.2 mean corpuscular hemoglobin concentration, RBC 32.6 G/DL % 31.8-35.4 red blood cell distribution width 18.0 % 11 .6-14.8 platelet count 276 10^3/MM^3 10*3/mm3 969-218 6758/01/14 mean corpuscular volume, RBC 82 fL 80-97 hematocrit, blood 37.3 % 41.0-53.0 hemoglobin, blood 12.2 g/dL 13.5-17.5 erythrocyte (RBC) count 4.57 10^6/MM^3 10*6/mm3 4.69-6.1 3 leukocyte count, blood 7.1 10^3/MM^3 10*3/mm3 4.6-10.2 Lab Report: Comp. Metabolic Panel - Chem istry sodium, serum 136 mmol/L 311-322 4597/01/14 creatinine, serum 1.11 mg/dL 0.55-1.30 alanine aminotransferase [...] (patient) 17.5 SECS s 11.1-13.4 Lab Report: Lipid Panel, HEPATIC PANEL, MICROALB/CREAT W/RATIO, HGBA1C, CBC - Chemistry LDL cholesterol, serum 60 mg/dL 0-130 aspartate aminotransferase (SGOT), serum 24 U/L 15-37 alanine aminotransferase (SGPT), serum 29 U/L 12-78 bilirubin, serum, total 0.60 mg/dL 0.00-1.00 albumin/creatinine ratio, urine < 30 mg/g mg/g{creat} 0-2 9 hemoglobin A1C, blood, as % of total hemoglobin 6.3 % 4.3-6.0 cholesterol, serum 136 mg/dL 134-780 8191/08/09 triglyceride, serum, fasting 187 mg/dL 30-200 HDL cholesterol, serum 39 mg/dL 32-96 Lab Report: Lipid Panel, HEPATIC PANEL, MICROALB/CREAT [...] 14.5 SECS s 11.1-13.4 prothrombin time (patient) 18.9 [...] 11.1-13.4 Encounters Code Encounter Date Provider Facility CPT-07542 Level 3 Est. Patient 14:21:06 CDT Mitch luis [facility] CPT-04076 Level 3 Est. Patient 14:52:06 CDT [facility] Level 3 Est. Patient 09:34:30 LIGHT INDUSTRIAL SUPERVISOR Mitch luis [facility] CPT-35538 Level 3 Est. Patient 09:37:15 CDT Mitch luis [facility] CPT-13644 Level 3 Est. Patient 17:01:00 LIGHT INDUSTRIAL SUPERVISOR Mitch luis [facility] CPT-67271 Level 3 Est. Patient 13:53:19 LIGHT INDUSTRIAL SUPERVISOR Mitch luis [facility] CPT-46919 Level 3 Est. Patient 19:19:37 LIGHT INDUSTRIAL SUPERVISOR Mitch luis [facility] CPT-21228 Level 3 Est. Patient 13:25:53 LIGHT INDUSTRIAL SUPERVISOR Tavo toure MD [facility] CPT-19321 Level 3 Est. Patient 18:17:28 CDT Mitch luis [facility] CPT-97605 Level 3 Est. Patient 15:22:57 CDT Mitch luis [facility] CPT-45855 Level 3 Est. Patient 18:21:50 CDT Mitch luis [facility] CPT-68132 Level 3 Est. Patient 18:20:38 CDT Mitch luis [facility] CPT-87873 Level 3 Est. Patient 15:37:55 CDT Mitch luis [facility] CPT-76287 Level 2 Est. Patient 15:54:44 CDT Carmine benton MD [facility] CPT-11673 Level 3 Est. Patient 21:46:01 LIGHT INDUSTRIAL SUPERVISOR Mitch luis [facility] CPT-72010 Level 3 Est. Patient 22:15:50 CDT Mitch luis [facility] CPT-35883 Level 3 Est. Patient 10:48:15 CDT Mitch luis [facility] CPT-31597 Level 3 Est. Patient 23:20:57 CDT Tavo toure MD [facility] CPT-58475 Level 3 Est. Patient 16:26:13 CDT Mitch luis [facility] Procedures Code Procedure Name Date Entry Date Standard Desc ription CPT-62475 PT/INR - LAB USE ONLY 09:22:03 LIGHT INDUSTRIAL SUPERVISOR CPT-31071 Venipuncture Draw Fee 09:22:02 LIGHT INDUSTRIAL SUPERVISOR CPT-69729 Hemoccult IFOBT - LAB USE ONLY 10:27:22 CDT CPT-30634 Venipuncture Draw Fee 08:27:08 CDT CPT-08816 Liver Profile - LAB USE ONLY 08:27:07 CDT 2 CPT-16858 Microalbumin - LAB USE ONLY 08:27:07 CDT 20 25/05/09 CPT-73737 PT/INR - LAB USE ONLY 08:27:07 CDT CPT-21676 HGBA1C - LAB USE ONLY 08:27:07 CDT CPT-88126 CBC - LAB USE ONLY 08:27:07 CDT CPT-53649 Venipuncture Draw Fee 11:09:14 CDT CPT-56686 Venipuncture Draw Fee 08:32:21 LIGHT INDUSTRIAL SUPERVISOR CPT-20292 Venipuncture Draw Fee 09:38:56 LIGHT INDUSTRIAL SUPERVISOR CPT-85397 No Charge Offi Visit 21:36:07 CDT 1 CPT-71892 Venipuncture Draw Fee 10:13:28 LIGHT INDUSTRIAL SUPERVISOR CPT-15838 Venipuncture Draw Fee 08:31:11 CDT CPT-84993 Aspir/Inject Med Joint 18:17:28 CDT CPT-56919 Venipuncture Draw Fee 10:13:30 CDT CPT-87711 Venipuncture Draw Fee 08:31:43 LIGHT INDUSTRIAL SUPERVISOR CPT-JTINJ Joint Injection 18:34:50 CDT CPT-21183 Knee 3V 12:25:09 CDT CPT-36660 Venipuncture Draw Fee 12:15:57 CDT CPT-060 Medical Surveillance Exam 21:31:43 CDT 2011 CPT-24347 Venipuncture Draw Fee 08:32:05 LIGHT INDUSTRIAL SUPERVISOR CPT-OV Office Visit 18:19:06 CDT
--- OUTSIDE RECORDS SUMMARY | 2020-01-18 13:07 | XMS REPORT | Clinical Summary ---
[...] tab to equal 7mg daily WARFARIN SODIUM 95264914341 Active Mitch Urbina DO Active COLCRYS 0.6 MG TABS 1 tab qid prn gout COLCHICINE 88243416483 Active Kathie Juan RPT,RMA Active INVOKANA 100 MG ORAL TABS 1 tablet orally daily CANAGLIFLOZIN 86669107791 Active Mitch Urbina DO Active MINOXIDIL 2.5 MG TABS 1 tablet daily for high blood pressure 10/23 MINOXIDIL 64092538876 Active Domi Rivera MA Active AMLODIPINE BESYLATE 5 MG TABS 1 tablet by mouth daily AMLODIPINE BESYLATE 77058639290 Active Mitch Urbina DO Active MECLIZINE HCL 25 MG TAB 1 po tid 3 days, then 1/2 tab tid 3 days MECLIZINE HCL 62975564768 No Longer Active Corey SEGURA Active ALLOPURINOL 300 MG TABS Take 1 tablet by mouth daily 2 ALLOPURINOL 59221906575 No Longer Active Corey SEGURA Activ e CLONIDINE HCL 0.1 MG TABS 1 po bid 7 days, then 1/2 tab po b id 7 days CLONIDINE HCL 30097255201 No Longer Active Corey SEGURA Active COUMADIN 5 MG TABS 1 tab PO daily WARFARIN SODIUM 53199400387 Active Mitch Urbina DO Active COUMADIN 4 MG TABS 1 tablet daily WARFARIN SODI UM 81838243751 No Longer Active Corey SEGURA Active POLYTRIM 70858-6.1 UNIT/ML-% SOLN 1 drop in affected e ye every 3 hours while awake x 7 days POLYMYXIN B-TRIMETHOPRIM 62473533935 N o Longer Active Corey SEGURA Active LOSARTAN POTASSIUM-HCTZ 100-12.5 MG TABS 1 by mouth da rocky for high blood pressure LOSARTAN POTASSIUM-HCTZ 68822534186 Active Stephy Urbina DO Active LISINOPRIL-HYDROCHLOROTHIAZIDE 20-12.5 MG TABS 1 tab by mouth da rocky LISINOPRIL-HYDROCHLOROTHIAZIDE 54176596912 No Longer Active Mitch luis DO Active LISINOPRIL 20 MG TABS 1 tab po at HS LISINOPRIL 73766016134 No Longer Active Mitch Urbina DO Active COUMADIN 5 MG TABS 1 by mouth every other day WARFARIN SODIUM 66791302909 No Longer Active Mitch Urbina DO Active COUMADIN 6 MG TABS 1 by mouth every other day WARFARIN SODIUM 01146849836 No Longer Active Mitch W Carlitos DO Active SIMVASTATIN 40 MG TABS 1 tab daily at bedtime S IMVASTATIN 21786024084 Active Mitch Urbina DO Active SIMVASTATIN 20 MG TABS 1 tab daily at bedtime S IMVASTATIN 89793758863 No Longer Active Mitch Urbina DO Active LOVENOX 100 MG/ML SC SOLN One injection twice a day 09/15/15 ENOXAPARIN SODIUM 73433541345 No Longer Active Carmine Navarrete ctive JANUVIA 50 MG TABS Take one by mouth daily DIEGO GLIPTIN PHOSPHATE 37496388900 Active Mitch Urbina DO Active JANUVIA 100 MG TABS 1/2 by mouth every day DIEGO GLIPTIN PHOSPHATE 79667086460 No Longer Active Bijal Segal RN Active METFORMIN HCL 500 MG TABS 2 by mouth twice daily METFORMIN HCL 33972649652 Active Mitch Urbina DO Active GLIMEPIRIDE 4 MG TABS 1 tab po bid GLIMEPIRIDE 964588 76818 Active Mitch Urbina DO Active COLCRYS 0.6 MG TABS 1 po q 6 hours prn gout pain 03/02 COLCHICINE 04083241731 No Longer Active Camila Reese Active LISINOPRIL 5 MG TABS 1 by mouth every day LISIN OPRIL 31445120116 No Longer Active Nguyenmolly Perez Active KLOR-CON 20 MEQ PACK Take one by mouth daily 8 POTASSIUM CHLORIDE 16006335700 No Longer Active Nguyen Perez Active FUROSEMIDE 40 MG TABS 1 by mouth daily FUROSEMI DE 87415400060 No Longer Active Nguyenmolly Perez Active PROVIGIL 200 MG TABS 1/2 tab po q day MODAFINIL 44318 098603 Active Mitch Urbina DO Active PROVIGIL 100 MG TABS Take one by mouth daily MO DAFINIL 26494167867 No Longer Active Mitch Urbina DO Active BACTRIM DS 800-160 MG TAB 1 tab by mouth twice daily 2 TRIMETHOPRIM-SULFAMETHOXAZOLE 92266718491 No Longer Active Renan Hays MD Active FAMOTIDINE 20 MG TABS by mouth twice a day FAMOTI DINE 90384592366 Active Mitch Urbina DO Active ADULT ASPIRIN LOW STRENGTH 81 MG TBDP 1 by mouth every daily ASPIRIN 68443894682 Active Mitch Urbina DO Active METOPROLOL TARTRATE 50 MG TABS 1 by mouth twice daily METOPROLOL TARTRATE 36108668987 Active Mitch Urbina DO Active BACTRIM DS 800-160 MG TAB 1 tab by mouth twice daily 2 BACTRIM DS 800-160 MG TAB 780721 TRIMETHOPRIM-SULFAMETHOXAZOLE Inac tive PROVIGIL 100 MG TABS Take one by mouth daily 4 PROVIGIL 100 MG TABS 794286 MODAFINIL Inactive FUROSEMIDE 40 MG TABS 1 by mouth daily FU ROSEMIDE 40 MG TABS 139558 FUROSEMIDE Inactive KLOR-CON 20 MEQ PACK Take one by mouth daily 8 KLOR-CON 20 MEQ PACK 745126 POTASSIUM CHLORIDE Inactive LISINOPRIL 5 MG TABS 1 by mouth every day LISINOPRIL 5 MG TABS 804418 LISINOPRIL Inactive COLCRYS 0.6 MG TABS 1 po q 6 hours prn gout pain 03/02 COLCRYS 0.6 MG TABS 903979 COLCHICINE Inactive JANUVIA 100 MG TABS 1/2 by mouth every day JANUVI A 100 MG TABS SITAGLIPTIN PHOSPHATE Inactive SIMVASTATIN 20 MG TABS 1 tab daily at bedtime SIMVASTATIN 20 MG TABS 019236 SIMVASTATIN Inactive COUMADIN 6 MG TABS 1 by mouth every other day COUMADIN 6 MG TABS 887181 WARFARIN SODIUM Inactive COUMADIN 5 MG TABS 1 by mouth every other day COUMADIN 5 MG TABS 769819 WARFARIN SODIUM Inactive LISINOPRIL 20 MG TABS 1 tab po at HS KOKI NOPRIL 20 MG TABS 137893 LISINOPRIL Inactive LISINOPRIL-HYDROCHLOROTHIAZIDE 20-12.5 MG TABS 1 tab by mouth da rocky LISINOPRIL-HYDROCHLOROTHIAZIDE 20-12.5 MG TABS 156730 LISINOPRIL-HYDROCHLOROTHIAZIDE Inactive POLYTRIM 46317-9.1 UNIT/ML-% SOLN 1 drop in affected e ye every 3 hours while awake x 7 days POLYTRIM 66279-3.1 UNIT/ML-% SOLN 51201 7 POLYMYXIN B-TRIMETHOPRIM Inactive COUMADIN 4 MG TABS 1 tablet daily COUMADIN 4 MG TABS 554949 WARFARIN SODIUM Inactive CLONIDINE HCL 0.1 MG TABS 1 po bid 7 days, then 1/2 tab po b id 7 days CLONIDINE HCL 0.1 MG TABS 822290 CLONIDINE HCL I nactive ALLOPURINOL 300 MG TABS Take 1 tablet by mouth daily 2 ALLOPURINOL 300 MG TABS 741716 ALLOPURINOL Inactive MECLIZINE HCL 25 MG TAB 1 po tid 3 days, then 1/2 tab tid 3 days MECLIZINE HCL 25 MG TAB 568632 MECLIZINE HCL Inactive LOVENOX 100 MG/ML SC SOLN One injection twice a day 09/15/15 LOVENOX 100 MG/ML SC SOLN 634232 ENOXAPARIN SODIUM Inactive Vital Signs Date Name [...] Description Chart Maintenance: [facility] [place] [facility] - Chemistry occult blood, stool (E&M) Positive [...] - Chem istry sodium, serum 136 mmol/L 460-607 2761/01/14 carbon dioxide, venous blood 25.4 mmol/L 21.0-32 [...] CBC - Chemistry cholesterol, serum 136 mg/dL 318-068 1018/08/09 triglyceride, serum, fasting 187 mg/dL 30-200 HDL [...] 1.0-3.5 Encounters Code Encounter Date Provider Facility CPT-97704 Level 3 Est. Patient 14:21:06 CDT Mitch Ambrose L janelle [facility] CPT-24056 Level 3 Est. Patient 14:52:06 [facility] Level 3 Est. Patient 09:34:30 GENERATING STATION MECHANIC Mitch W L janelle [facility] CPT-91933 Level 3 Est. Patient 09:37:15 CDT Mitch W L ee [facility] CPT-86390 Level 3 Est. Patient 17:01:00 GENERATING STATION MECHANIC Mitch W L janelle [facility] CPT-99226 Level 3 Est. Patient 13:53:19 GENERATING STATION MECHANIC Mitch W L janelle [facility] CPT-73193 Level 3 Est. Patient 19:19:37 GENERATING STATION MECHANIC Mitch W L janelle [facility] CPT-04340 Level 3 Est. Patient 13:25:53 GENERATING STATION MECHANIC Tavo toure MD [facility] CPT-71759 Level 3 Est. Patient 18:17:28 CDT Mitch W L ee [facility] CPT-98521 Level 3 Est. Patient 15:22:57 CDT Mitch W L janelle [facility] CPT-49297 Level 3 Est. Patient 18:21:50 CDT Mitch W L ee [facility] CPT-27161 Level 3 Est. Patient 18:20:38 CDT Mitch W L ee [facility] CPT-83381 Level 3 Est. Patient 15:37:55 CDT Mitch W L ee [facility] CPT-37221 Level 2 Est. Patient 15:54:44 CDT Carmine benton MD [facility]-40019 Level 3 Est. Patient 21:46:01 GENERATING STATION MECHANIC Mitch luis [facility] CPT-40507 Level 3 Est. Patient 22:15:50 CDT Mitch luis [facility] CPT-28725 Level 3 Est. Patient 10:48:15 CDT Mitch luis DO [facility] CPT-49614 Level 3 Est. Patient 23:20:57 CDT Tavo toure MD [facility] CPT-83176 Level 3 Est. Patient 16:26:13 CDT Mitch luis [facility] Procedures Code Procedure Name Date Entry Date Standard Desc ription CPT-56868 Hemoccult IFOBT - LAB USE ONLY 10:27:22 CDT CPT-68593 Venipuncture Draw Fee 08:27:08 CDT CPT-44454 Liver Profile - LAB USE ONLY 08:27:07 CDT 2 CPT-85300 Microalbumin - LAB USE ONLY 08:27:07 CDT 20 25/05/09 CPT-30954 PT/INR - LAB USE ONLY 08:27:07 CDT CPT-87503 HGBA1C - LAB USE ONLY 08:27:07 CDT CPT-03185 CBC - LAB USE ONLY 08:27:07 CDT CPT-87239 Venipuncture Draw Fee 11:09:14 CDT CPT-91098 Venipuncture Draw Fee 08:32:21 GENERATING STATION MECHANIC CPT-01732 Venipuncture Draw Fee 09:38:56 GENERATING STATION MECHANIC CPT-08829 No Charge Offi Visit 21:36:07 CDT 1 CPT-84896 Venipuncture Draw Fee 10:13:28 GENERATING STATION MECHANIC CPT-72541 Venipuncture Draw Fee 08:31:11 CDT CPT-89320 Aspir/Inject Med Joint 18:17:28 CDT CPT-82631 Venipuncture Draw Fee 10:13:30 CDT CPT-11406 Venipuncture Draw Fee 08:31:43 GENERATING STATION MECHANIC CPT-JTINJ Joint Injection 18:34:50 CDT CPT-46271 Knee 3V 12:25:09 CDT CPT-84877 Venipuncture Draw Fee 12:15:57 CDT CPT-060 Medical Surveillance Exam 21:31:43 CDT 2011 CPT-59874 Venipuncture Draw Fee 08:32:05 GENERATING STATION MECHANIC CPT-OV Office Visit 18:19:06 CDT
--- OUTSIDE RECORDS SUMMARY | 2020-01-18 13:07 | XMS REPORT | Clinical Summary ---
[...] ORAL TABS 1 tablet orally daily CANAGLIFLOZIN 50456177399 Active Kathie Juan RPT,RMA Active MINOXIDIL 2.5 MG TABS 1 tablet daily for high blood pressure 10/23 MINOXIDIL 90516906273 Active Mitch Arnol Carlitos DO Active AMLODIPINE BESYLATE 5 MG TABS 1 tablet by mouth daily AMLODIPINE BESYLATE 19608119816 Active Domi Rivera MA Active MECLIZINE HCL 25 MG TAB 1 po tid 3 days, then 1/2 tab tid 3 days MECLIZINE HCL 86721160795 No Longer Active Corey SEGURA Active ALLOPURINOL 300 MG TABS Take 1 tablet by mouth daily 2 ALLOPURINOL 13986995666 No Longer Active Corey SEGURA Activ e CLONIDINE HCL 0.1 MG TABS 1 po bid 7 days, then 1/2 tab po b id 7 days CLONIDINE HCL 68170958664 No Longer Active Corey SEGURA Active COUMADIN 5 MG TABS 1 tab PO daily WARFARIN SODIUM 43794690629 Active Domi Rivera MA Active COUMADIN 4 MG TABS 1 tablet daily WARFARIN SODI UM 73156870037 No Longer Active Corey SEGURA Active POLYTRIM 19199-3.1 UNIT/ML-% SOLN 1 drop in affected e ye every 3 hours while awake x 7 days POLYMYXIN B-TRIMETHOPRIM 07081534123 N o Longer Active Corey SEGURA Active LOSARTAN POTASSIUM-HCTZ 100-12.5 MG TABS 1 by mouth da rocky for high blood pressure LOSARTAN POTASSIUM-HCTZ 66195446145 Active Domi Rivera MA Active LISINOPRIL-HYDROCHLOROTHIAZIDE 20-12.5 MG TABS 1 tab by mouth da rocky LISINOPRIL-HYDROCHLOROTHIAZIDE 87398615562 No Longer Active Mitch luis DO Active LISINOPRIL 20 MG TABS 1 tab po at HS LISINOPRIL 50278477403 No Longer Active Mitch Urbina DO Active COUMADIN 5 MG TABS 1 by mouth every other day WARFARIN SODIUM 55136497940 No Longer Active Mitch Urbina DO Active COUMADIN 6 MG TABS 1 by mouth every other day WARFARIN SODIUM 72539299659 No Longer Active Mitch Urbina DO Active COLCRYS 0.6 MG TABS 1 tab qid prn gout COLCHICINE 96774849408 Active Corey SEGURA Active SIMVASTATIN 40 MG TABS 1 tab daily at bedtime S IMVASTATIN 27841817174 Active Domi Rivera MA Active SIMVASTATIN 20 MG TABS 1 tab daily at bedtime S IMVASTATIN 86187233947 No Longer Active Mitch Urbina DO Active LOVENOX 100 MG/ML SC SOLN One injection twice a day 09/15/15 ENOXAPARIN SODIUM 57884352162 No Longer Active Carmine Navarrete ctive JANUVIA 50 MG TABS Take one by mouth daily DIEGO GLIPTIN PHOSPHATE 59234888300 Active Domi Rivera MA Active JANUVIA 100 MG TABS 1/2 by mouth every day DIEGO GLIPTIN PHOSPHATE 15083948265 No Longer Active Bijal Segal RN Active METFORMIN HCL 500 MG TABS 2 by mouth twice daily METFORMIN HCL 39214477857 Active Domi Rivera MA Active GLIMEPIRIDE 4 MG TABS 1 tab po bid GLIMEPIRIDE 013375 44466 Active Domi Rivera MA Active COLCRYS 0.6 MG TABS 1 po q 6 hours prn gout pain 03/02 COLCHICINE 14964219182 No Longer Active Camila Reese Active LISINOPRIL 5 MG TABS 1 by mouth every day LISIN OPRIL 38103545772 No Longer Active Nguyen Perez Active KLOR-CON 20 MEQ PACK Take one by mouth daily 8 POTASSIUM CHLORIDE 51679271563 No Longer Active Nguyen Perez Active FUROSEMIDE 40 MG TABS 1 by mouth daily FUROSEMI DE 02824620246 No Longer Active Nguyen Perez Active PROVIGIL 200 MG TABS 1/2 tab po q day MODAFINIL 17119 687711 Active Domi Rivera MA Active PROVIGIL 100 MG TABS Take one by mouth daily MO DAFINIL 00002051546 No Longer Active Mitch Urbina DO Active BACTRIM DS 800-160 MG TAB 1 tab by mouth twice daily 2 TRIMETHOPRIM-SULFAMETHOXAZOLE 62620557840 No Longer Active Renan Hays MD Active FAMOTIDINE 20 MG TABS by mouth twice a day FAMOTI DINE 97523978619 Active Mitch Urbina DO Active ADULT ASPIRIN LOW STRENGTH 81 MG TBDP 1 by mouth every daily ASPIRIN 68433500267 Active Mitch Urbina DO Active METOPROLOL TARTRATE 50 MG TABS 1 by mouth twice daily METOPROLOL TARTRATE 97906001576 Active Domi Rivera MA Active BACTRIM DS 800-160 MG TAB 1 tab by mouth twice daily 2 BACTRIM DS 800-160 MG TAB 995484 TRIMETHOPRIM-SULFAMETHOXAZOLE Inac tive PROVIGIL 100 MG TABS Take one by mouth daily 4 PROVIGIL 100 MG TABS 895659 MODAFINIL Inactive FUROSEMIDE 40 MG TABS 1 by mouth daily FU ROSEMIDE 40 MG TABS 567476 FUROSEMIDE Inactive KLOR-CON 20 MEQ PACK Take one by mouth daily 8 KLOR-CON 20 MEQ PACK 926772 POTASSIUM CHLORIDE Inactive LISINOPRIL 5 MG TABS 1 by mouth every day LISINOPRIL 5 MG TABS 236644 LISINOPRIL Inactive COLCRYS 0.6 MG TABS 1 po q 6 hours prn gout pain 03/02 COLCRYS 0.6 MG TABS 659309 COLCHICINE Inactive JANUVIA 100 MG TABS 1/2 by mouth every day JANUVI A 100 MG TABS SITAGLIPTIN PHOSPHATE Inactive SIMVASTATIN 20 MG TABS 1 tab daily at bedtime SIMVASTATIN 20 MG TABS 713336 SIMVASTATIN Inactive COUMADIN 6 MG TABS 1 by mouth every other day COUMADIN 6 MG TABS 666590 WARFARIN SODIUM Inactive COUMADIN 5 MG TABS 1 by mouth every other day COUMADIN 5 MG TABS 681223 WARFARIN SODIUM Inactive LISINOPRIL 20 MG TABS 1 tab po at HS KOKI NOPRIL 20 MG TABS 357719 LISINOPRIL Inactive LISINOPRIL-HYDROCHLOROTHIAZIDE 20-12.5 MG TABS 1 tab by mouth da rocky LISINOPRIL-HYDROCHLOROTHIAZIDE 20-12.5 MG TABS 946488 LISINOPRIL-HYDROCHLOROTHIAZIDE Inactive POLYTRIM 35129-1.1 UNIT/ML-% SOLN 1 drop in affected e ye every 3 hours while awake x 7 days POLYTRIM 41319-9.1 UNIT/ML-% SOLN 68167 7 POLYMYXIN B-TRIMETHOPRIM Inactive COUMADIN 4 MG TABS 1 tablet daily COUMADIN 4 MG TABS 219107 WARFARIN SODIUM Inactive CLONIDINE HCL 0.1 MG TABS 1 po bid 7 days, then 1/2 tab po b id 7 days CLONIDINE HCL 0.1 MG TABS 557556 CLONIDINE HCL I nactive ALLOPURINOL 300 MG TABS Take 1 tablet by mouth daily 2 ALLOPURINOL 300 MG TABS 720307 ALLOPURINOL Inactive MECLIZINE HCL 25 MG TAB 1 po tid 3 days, then 1/2 tab tid 3 days MECLIZINE HCL 25 MG TAB 014766 MECLIZINE HCL Inactive LOVENOX 100 MG/ML SC SOLN One injection twice a day 09/15/15 LOVENOX 100 MG/ML SC SOLN 902501 ENOXAPARIN SODIUM Inactive Vital Signs Date Name [...] 142-424 Lab Report: CBC W/DIFF - Hematology neutrophils as percent of blood leukocytes 69.3 % 42.2-75.2 leukocyte count, blood 6.2 10^3/MM^3 10*3/mm3 4.6-10.2 erythrocyte (RBC) count 4.83 10^6/MM^3 10*6/mm3 4.69-6.1 3 hemoglobin, blood 13.0 g/dL 13.5-17.5 hematocrit, blood 39.5 % 41.0-53.0 mean corpuscular volume, RBC 82 fL 80-97 mean corpuscular hemoglobin, RBC 27.0 pg 27. 0-31.2 mean corpuscular hemoglobin concentration, RBC 33.0 G/DL % 31.8-35.4 red blood cell distribution width 17.2 % 11 .6-14.8 platelet count 283 10^3/MM^3 10*3/mm3 582-487 6756/03/27 lymphocytes as percent of blood leukocytes 19.7 % 20.5-51.1 monocytes as percent of blood leukocytes 7.3 % 1.7-9.3 Lab Report: CBC, Comp. Metabolic Panel, Prostatic Specific Ag - Chemistry sodium, serum 141 mmol/L 916-663 9113/07/06 potassium, serum 4.4 mmol/L 3.5-5.2 chloride, serum [...] - Chem istry sodium, serum 136 mmol/L 453-765 3396/01/14 carbon dioxide, venous blood 25.4 mmol/L 21.0-32 [...] 7.0 % 4.3-6.0 cholesterol, serum 120 mg/dL 128-043 4974/07/06 triglyceride, serum, fasting 186 mg/dL 30-200 HDL [...] Time - Coagulati on prothrombin time (patient) 20.1 SECS s 11.1-13.4 international normalized ratio (INR) 2.6 1.0-3.5 international normalized ratio (INR) 2.3 1.0-3.5 prothrombin time (patient) 17.1 SECS s 11.1-13.4 international normalized ratio (INR) 2.0 1.0-3.5 prothrombin time (patient) 18.6 SECS s 11.1-13.4 prothrombin time (patient) 18.9 SECS s 11.1-13.4 international normalized ratio (INR) 2.4 1.0-3.5 prothrombin time (patient) 18.1 SECS s 11.1-13.4 international normalized ratio (INR) 2.2 1.0-3.5 Encounters Code Encounter Date Provider Facility CPT-31948 Level 3 Est. Patient 09:34:30 VOLUNTEER SERVICES DIRECTOR Mitch luis [facility] CPT-61963 Level 3 Est. Patient 09:37:15 CDT Mitch luis [facility] CPT-47461 Level 3 Est. Patient 17:01:00 VOLUNTEER SERVICES DIRECTOR Mitch W L ee DO [facility] CPT-92968 Level 3 Est. Patient 13:53:19 VOLUNTEER SERVICES DIRECTOR Mitch W L ee DO [facility] CPT-03109 Level 3 Est. Patient 19:19:37 VOLUNTEER SERVICES DIRECTOR Mitch W L ee DO [facility] CPT-78426 Level 3 Est. Patient 13:25:53 VOLUNTEER SERVICES DIRECTOR Tavo toure MD [facility] CPT-81518 Level 3 Est. Patient 18:17:28 CDT Mitch W L ee [facility] CPT-94539 Level 3 Est. Patient 15:22:57 CDT Mitch W L ee DO [facility] CPT-42641 Level 3 Est. Patient 18:21:50 CDT Mitch W L ee DO [facility] CPT-02347 Level 3 Est. Patient 18:20:38 CDT Mitch W L ee DO [facility] CPT-45527 Level 3 Est. Patient 15:37:55 CDT Mitch W L ee [facility] CPT-44157 Level 2 Est. Patient 15:54:44 CDT Carmine benton MD [facility] CPT-22800 Level 3 Est. Patient 21:46:01 VOLUNTEER SERVICES DIRECTOR Mitch W L ee DO [facility] CPT-20313 Level 3 Est. Patient 22:15:50 CDT Mitch W L ee [facility] CPT-25800 Level 3 Est. Patient 10:48:15 CDT Mitch W L ee [facility] CPT-59990 Level 3 Est. Patient 23:20:57 CDT Tavo toure MD [facility] CPT-49241 Level 3 Est. Patient 16:26:13 CDT Mitch Ambrose L ee [facility] Procedures Code Procedure Name Date Entry Date Standard Desc ription CPT-37239 Venipuncture Draw Fee 08:32:21 V[employer]UNTEER SERVICES DIRECTOR CPT-16033 Venipuncture Draw Fee 09:38:56 V[employer]UNTEER SERVICES DIRECTOR CPT-95020 No Charge Offi Visit 21:36:07 CDT 1 CPT-85547 Venipuncture Draw Fee 10:13:28 V[employer]UNTEER SERVICES DIRECTOR CPT-43049 Venipuncture Draw Fee 08:31:11 CDT CPT-09896 Aspir/Inject Med Joint 18:17:28 CDT CPT-30397 Venipuncture Draw Fee 10:13:30 CDT CPT-80783 Venipuncture Draw Fee 08:31:43 VOLUNTEER SERVICES DIRECTOR CPT-JTINJ Joint Injection 18:34:50 CDT CPT-38284 Knee 3V 12:25:09 CDT CPT-42543 Venipuncture Draw Fee 12:15:57 CDT CPT-060 Medical Surveillance Exam 21:31:43 CDT 2011 CPT-31174 Venipuncture Draw Fee 08:32:05 VOLUNTEER SERVICES DIRECTOR CPT-OV Office Visit 18:19:06 CDT
--- OUTSIDE RECORDS SUMMARY | 2020-01-18 13:07 | XMS REPORT | Clinical Summary ---
Author Author Admin, iMtch Leon Organization [facility] Address Unknown Phone Unavailable Allergies, Adverse Reactions, [...] Coronary atherosclerosis of unspecified type of vessel, picayune or graft EDEMA 782.3 Resolved Mitch Urbina [...] 1 hour if symptoms persist. COLCHICINE 59 714900364 Active Mitch Urbina DO Active COUMADIN 1 MG TAB 2 tabs orally daily with the 5mg tab to equal 7mg daily WARFARIN SODIUM 51486550570 Active Mitch Urbina DO Active COLCRYS 0.6 MG TABS 1 tab qid prn gout COLCHICINE 79879010281 Active Norma Cazares Active INVOKANA 100 MG ORAL TABS 1 tablet orally daily CANAGLIFLOZIN 80245507641 Active Brenda Shen Active MINOXIDIL 2.5 MG TABS 1 tablet daily for high blood pressure 10/23 MINOXIDIL 64447364287 Active Ana Wallace Active AMLODIPINE BESYLATE 5 MG TABS 1 tablet by mouth daily AMLODIPINE BESYLATE 71272207772 Active Mitch Urbina DO Active MECLIZINE HCL 25 MG TAB 1 po tid 3 days, then 1/2 tab tid 3 days MECLIZINE HCL 27353810968 No Longer Active Corey SEGURA Active ALLOPURINOL 300 MG TABS Take 1 tablet by mouth daily 2 ALLOPURINOL 48427187611 No Longer Active Corey SEGURA Activ e CLONIDINE HCL 0.1 MG TABS 1 po bid 7 days, then 1/2 tab po b id 7 days CLONIDINE HCL 84201761294 No Longer Active Corey SEGURA Active COUMADIN 5 MG TABS 1 tab PO daily WARFARIN SODIUM 50627287812 Active Mitch Urbina DO Active COUMADIN 4 MG TABS 1 tablet daily WARFARIN SODI UM 56024190844 No Longer Active Corey SEGURA Active POLYTRIM 46890-0.1 UNIT/ML-% SOLN 1 drop in affected e ye every 3 hours while awake x 7 days POLYMYXIN B-TRIMETHOPRIM 60157905448 N o Longer Active Corey SEGURA Active LOSARTAN POTASSIUM-HCTZ 100-12.5 MG TABS 1 by mouth da rocky for high blood pressure LOSARTAN POTASSIUM-HCTZ 90208200632 Active Stephy Urbina DO Active LISINOPRIL-HYDROCHLOROTHIAZIDE 20-12.5 MG TABS 1 tab by mouth da rocky LISINOPRIL-HYDROCHLOROTHIAZIDE 50042697025 No Longer Active Mitch luis DO Active LISINOPRIL 20 MG TABS 1 tab po at HS LISINOPRIL 44157431495 No Longer Active Mitch Urbina DO Active COUMADIN 5 MG TABS 1 by mouth every other day WARFARIN SODIUM 25077079410 No Longer Active Mtich Urbina DO Active COUMADIN 6 MG TABS 1 by mouth every other day WARFARIN SODIUM 98722993894 No Longer Active Mitch Arnol Carlitos DO Active SIMVASTATIN 40 MG TABS 1 tab daily at bedtime S IMVASTATIN 15567270651 Active Mitch Urbina DO Active SIMVASTATIN 20 MG TABS 1 tab daily at bedtime S IMVASTATIN 75717957010 No Longer Active Mitch Urbina DO Active LOVENOX 100 MG/ML SC SOLN One injection twice a day 09/15/15 ENOXAPARIN SODIUM 69883895532 No Longer Active Carmine Navarrete ctive JANUVIA 50 MG TABS Take one by mouth daily DIEGO GLIPTIN PHOSPHATE 75494124662 Active Mitch Arnol Carlitos DO Active JANUVIA 100 MG TABS 1/2 by mouth every day DIEGO GLIPTIN PHOSPHATE 24629221205 No Longer Active Bijal Segal RN Active METFORMIN HCL 500 MG TABS 2 by mouth twice daily METFORMIN HCL 51988384804 Active Mitch Arnol Carlitos DO Active GLIMEPIRIDE 4 MG TABS 1 tab po bid GLIMEPIRIDE 704751 54973 Active Mitch Arnol Carlitos DO Active COLCRYS 0.6 MG TABS 1 po q 6 hours prn gout pain 03/02 COLCHICINE 84822392496 No Longer Active Camila Reese Active LISINOPRIL 5 MG TABS 1 by mouth every day LISIN OPRIL 23701682542 No Longer Active Nguyen Perez Active KLOR-CON 20 MEQ PACK Take one by mouth daily 8 POTASSIUM CHLORIDE 56291833963 No Longer Active Nguyenmolly Perez Active FUROSEMIDE 40 MG TABS 1 by mouth daily FUROSEMI DE 66953781682 No Longer Active Nguyen Perez Active PROVIGIL 200 MG TABS 1/2 tab po q day MODAFINIL 82276 687029 Active Kathie Juan RPT,RMA Active PROVIGIL 100 MG TABS Take one by mouth daily MO DAFINIL 94947210673 No Longer Active Mitch Urbina DO Active BACTRIM DS 800-160 MG TAB 1 tab by mouth twice daily 2 TRIMETHOPRIM-SULFAMETHOXAZOLE 75488598002 No Longer Active Renan Hays MD Active FAMOTIDINE 20 MG TABS by mouth twice a day FAMOTI DINE 51537232726 Active Mitch Urbina DO Active ADULT ASPIRIN LOW STRENGTH 81 MG TBDP 1 by mouth every daily ASPIRIN 86900770673 Active Mitch Urbina DO Active METOPROLOL TARTRATE 50 MG TABS 1 by mouth twice daily METOPROLOL TARTRATE 05722149141 Active Mitch Urbina DO Active BACTRIM DS 800-160 MG TAB 1 tab by mouth twice daily 2 BACTRIM DS 800-160 MG TAB 683927 TRIMETHOPRIM-SULFAMETHOXAZOLE Inac tive PROVIGIL 100 MG TABS Take one by mouth daily 4 PROVIGIL 100 MG TABS 237447 MODAFINIL Inactive FUROSEMIDE 40 MG TABS 1 by mouth daily FU ROSEMIDE 40 MG TABS 944376 FUROSEMIDE Inactive KLOR-CON 20 MEQ PACK Take one by mouth daily 8 KLOR-CON 20 MEQ PACK 517927 POTASSIUM CHLORIDE Inactive LISINOPRIL 5 MG TABS 1 by mouth every day LISINOPRIL 5 MG TABS 779721 LISINOPRIL Inactive COLCRYS 0.6 MG TABS 1 po q 6 hours prn gout pain 03/02 COLCRYS 0.6 MG TABS 926392 COLCHICINE Inactive JANUVIA 100 MG TABS 1/2 by mouth every day JANUVI A 100 MG TABS SITAGLIPTIN PHOSPHATE Inactive SIMVASTATIN 20 MG TABS 1 tab daily at bedtime SIMVASTATIN 20 MG TABS 864599 SIMVASTATIN Inactive COUMADIN 6 MG TABS 1 by mouth every other day COUMADIN 6 MG TABS 034231 WARFARIN SODIUM Inactive COUMADIN 5 MG TABS 1 by mouth every other day COUMADIN 5 MG TABS 462509 WARFARIN SODIUM Inactive LISINOPRIL 20 MG TABS 1 tab po at HS KOKI NOPRIL 20 MG TABS 737261 LISINOPRIL Inactive LISINOPRIL-HYDROCHLOROTHIAZIDE 20-12.5 MG TABS 1 tab by mouth da rocky LISINOPRIL-HYDROCHLOROTHIAZIDE 20-12.5 MG TABS 603323 LISINOPRIL-HYDROCHLOROTHIAZIDE Inactive POLYTRIM 53846-9.1 UNIT/ML-% SOLN 1 drop in affected e ye every 3 hours while awake x 7 days POLYTRIM 78542-7.1 UNIT/ML-% SOLN 85841 7 POLYMYXIN B-TRIMETHOPRIM Inactive COUMADIN 4 MG TABS 1 tablet daily COUMADIN 4 MG TABS 296472 WARFARIN SODIUM Inactive CLONIDINE HCL 0.1 MG TABS 1 po bid 7 days, then 1/2 tab po b id 7 days CLONIDINE HCL 0.1 MG TABS 540630 CLONIDINE HCL I nactive ALLOPURINOL 300 MG TABS Take 1 tablet by mouth daily 2 ALLOPURINOL 300 MG TABS 270336 ALLOPURINOL Inactive MECLIZINE HCL 25 MG TAB 1 po tid 3 days, then 1/2 tab tid 3 days MECLIZINE HCL 25 MG TAB 868490 MECLIZINE HCL Inactive LOVENOX 100 MG/ML SC SOLN One injection twice a day 09/15/15 LOVENOX 100 MG/ML SC SOLN 050858 ENOXAPARIN SODIUM Inactive Vital Signs Date Name [...] 4.3-6.0 HDL cholesterol, serum 39 mg/dL 32-96 triglyceride, serum, fasting 187 mg/dL 30-200 cholesterol, serum 136 mg/dL 035-190 9292/08/09 aspartate aminotransferase (SGOT), serum 24 U/L 15-37 LDL cholesterol, serum 60 mg/dL 0-130 Lab [...] 1.0-3.5 Encounters Code Encounter Date Provider Facility CPT-33370 Level 3 Est. Patient 14:21:06 CDT Mitch Ambrose L janelle [facility] CPT-84850 Level 3 Est. [facility] 14:52:[facility] Est[facility] 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 Patient 09:37:15 CDT Mitch W L ee [facility] CPT-20001 Level 3 Est. Patient 17:01:00 RAKING MACHINE OPERATOR Mitch W L janelle [facility] CPT-15631 Level 3 Est. Patient 13:53:19 RAKING MACHINE OPERATOR Mitch W L janelle [facility] CPT-56064 Level 3 Est. Patient 19:19:37 RAKING MACHINE OPERATOR Mitch W L janelle [facility] CPT-70045 Level 3 Est. Patient 13:25:53 RAKING MACHINE OPERATOR Tavo toure MD [facility] CPT-92244 Level 3 Est. Patient 18:17:28 CDT Mitch W L ee [facility] CPT-32436 Level 3 Est. Patient 15:22:57 CDT Mitch W L janelle [facility] CPT-14339 Level 3 Est. Patient 18:21:50 CDT Mitch W L ee [facility] CPT-80376 Level 3 Est. Patient 18:20:38 CDT Mitch W L ee [facility] CPT-84887 Level 3 Est. Patient 15:37:55 CDT Mitch W L ee [facility] CPT-77560 Level 2 Est. Patient 15:54:44 CDT Carmine benton MD [facility]-08203 Level 3 Est. Patient 21:46:01 RAKING MACHINE OPERATOR Mitch luis [facility] CPT-79350 Level 3 Est. Patient 22:15:50 CDT Mitch luis [facility] CPT-09398 Level 3 Est. Patient 10:48:15 CDT Mitch luis DO [facility] CPT-39756 Level 3 Est. Patient 23:20:57 CDT Tavo toure MD [facility] CPT-65999 Level 3 Est. Patient 16:26:13 CDT Mitch luis [facility] Procedures Code Procedure Name Date Entry Date Standard Desc ription CPT-83211 PT/INR - LAB USE ONLY 13:32:49 RAKING MACHINE OPERATOR CPT-05969 Venipuncture Draw Fee 13:32:49 RAKING MACHINE OPERATOR CPT-90916 PT/INR - LAB USE ONLY 10:34:49 RAKING MACHINE OPERATOR CPT-91359 Venipuncture Draw Fee 10:34:48 RAKING MACHINE OPERATOR CPT-81401 PT/INR - LAB USE ONLY 09:22:03 RAKING MACHINE OPERATOR CPT-88427 Venipuncture Draw Fee 09:22:02 RAKING MACHINE OPERATOR CPT-84694 Hemoccult IFOBT - LAB USE ONLY 10:27:22 CDT CPT-65563 Venipuncture Draw Fee 08:27:08 CDT CPT-57530 Liver Profile - LAB USE ONLY 08:27:07 CDT 2 CPT-39590 Microalbumin - LAB USE ONLY 08:27:07 CDT 20 25/05/09 CPT-48362 PT/INR - LAB USE ONLY 08:27:07 CDT CPT-14582 HGBA1C - LAB USE ONLY 08:27:07 CDT CPT-77430 CBC - LAB USE ONLY 08:27:07 CDT CPT-91107 Venipuncture Draw Fee 11:09:14 CDT CPT-36385 Venipuncture Draw Fee 08:32:21 RAKING MACHINE OPERATOR CPT-42229 Venipuncture Draw Fee 09:38:56 RAKING MACHINE OPERATOR CPT-85726 No Charge Offi Visit 21:36:07 CDT 1 CPT-28934 Venipuncture Draw Fee 10:13:28 RAKING MACHINE OPERATOR CPT-20155 Venipuncture Draw Fee 08:31:11 CDT CPT-27128 Aspir/Inject Med Joint 18:17:28 CDT CPT-79215 Venipuncture Draw Fee 10:13:30 CDT CPT-84658 Venipuncture Draw Fee 08:31:43 RAKING MACHINE OPERATOR CPT-JTINJ Joint Injection 18:34:50 CDT CPT-55231 Knee 3V 12:25:09 CDT CPT-84437 Venipuncture Draw Fee 12:15:57 CDT CPT-060 Medical Surveillance Exam 21:31:43 CDT 2011 CPT-12394 Venipuncture Draw Fee 08:32:05 RAKING MACHINE OPERATOR CPT-OV Office Visit 18:19:06 CDT
--- OUTSIDE RECORDS SUMMARY | 2020-01-18 13:07 | XMS REPORT | Clinical Summary ---
Author Author Admin, Mitch Leon Organization [facility] Address Unknown Phone Unavailable Allergies, Adverse [...] ( 6mg total ) 2015 WARFARIN SODIUM 44620387294 Active Domi Rivera MA Acti ve INVOKANA 100 MG ORAL TABS 1 tablet orally daily CANAGLIFLOZIN 39576417691 Active Kathie Juan RPT,RMA Active MINOXIDIL 2.5 MG TABS 1 tablet daily for high blood pressure 10/23 MINOXIDIL 08980549615 Active Mitch Urbina DO Active AMLODIPINE BESYLATE 5 MG TABS 1 tablet by mouth daily AMLODIPINE BESYLATE 39984031295 Active Domi Rivera MA Active MECLIZINE HCL 25 MG TAB 1 po tid 3 days, then 1/2 tab tid 3 days MECLIZINE HCL 67579403926 No Longer Active Corey SEGURA Active ALLOPURINOL 300 MG TABS Take 1 tablet by mouth daily 2 ALLOPURINOL 65479096020 No Longer Active Corey SEGURA Activ e CLONIDINE HCL 0.1 MG TABS 1 po bid 7 days, then 1/2 tab po b id 7 days CLONIDINE HCL 04569937761 No Longer Active Corey SEGURA Active COUMADIN 5 MG TABS 1 tab PO daily WARFARIN SODIUM 18305776196 Active Mitch Urbina DO Active COUMADIN 4 MG TABS 1 tablet daily WARFARIN SODI UM 82872557111 No Longer Active Corey SEGURA Active POLYTRIM 94388-0.1 UNIT/ML-% SOLN 1 drop in affected e ye every 3 hours while awake x 7 days POLYMYXIN B-TRIMETHOPRIM 05331685124 N o Longer Active Corey SEGURA Active LOSARTAN POTASSIUM-HCTZ 100-12.5 MG TABS 1 by mouth da rocky for high blood pressure LOSARTAN POTASSIUM-HCTZ 72291673055 Active Domi Rivera MA Active LISINOPRIL-HYDROCHLOROTHIAZIDE 20-12.5 MG TABS 1 tab by mouth da rocky LISINOPRIL-HYDROCHLOROTHIAZIDE 18934212905 No Longer Active Mitch luis DO Active LISINOPRIL 20 MG TABS 1 tab po at HS LISINOPRIL 08860206328 No Longer Active Mitch Urbina DO Active COUMADIN 5 MG TABS 1 by mouth every other day WARFARIN SODIUM 45644442439 No Longer Active Mitch Urbina DO Active COUMADIN 6 MG TABS 1 by mouth every other day WARFARIN SODIUM 07763374215 No Longer Active Mitch Urbina DO Active COLCRYS 0.6 MG TABS 1 tab qid prn gout COLCHICINE 74270900998 Active Corey SEGURA Active SIMVASTATIN 40 MG TABS 1 tab daily at bedtime S IMVASTATIN 73899146073 Active Domi Rivera MA Active SIMVASTATIN 20 MG TABS 1 tab daily at bedtime S IMVASTATIN 00512811309 No Longer Active Mitch Urbina DO Active LOVENOX 100 MG/ML SC SOLN One injection twice a day 09/15/15 ENOXAPARIN SODIUM 91831569799 No Longer Active Carmine Navarrete ctive JANUVIA 50 MG TABS Take one by mouth daily DIEGO GLIPTIN PHOSPHATE 20633404037 Active Domi Rivera MA Active JANUVIA 100 MG TABS 1/2 by mouth every day DIEGO GLIPTIN PHOSPHATE 45892436571 No Longer Active Bijal Segal RN Active METFORMIN HCL 500 MG TABS 2 by mouth twice daily METFORMIN HCL 56454265431 Active Kathie Juan RPT,RMA Active GLIMEPIRIDE 4 MG TABS 1 tab po bid GLIMEPIRIDE 128877 61101 Active Kathie Juan RPT,RMA Active COLCRYS 0.6 MG TABS 1 po q 6 hours prn gout pain 03/02 COLCHICINE 55620083802 No Longer Active Camila Reese Active LISINOPRIL 5 MG TABS 1 by mouth every day LISIN OPRIL 22401043948 No Longer Active Nguyen Perez Active KLOR-CON 20 MEQ PACK Take one by mouth daily 8 POTASSIUM CHLORIDE 73981154024 No Longer Active Nguyen Perez Active FUROSEMIDE 40 MG TABS 1 by mouth daily FUROSEMI DE 24540849657 No Longer Active Nguyenmolly Perez Active PROVIGIL 200 MG TABS 1/2 tab po q day MODAFINIL 68934 405348 Active Domi Rivera MA Active PROVIGIL 100 MG TABS Take one by mouth daily MO DAFINIL 16072938835 No Longer Active Mitch Urbina DO Active BACTRIM DS 800-160 MG TAB 1 tab by mouth twice daily 2 TRIMETHOPRIM-SULFAMETHOXAZOLE 91338851728 No Longer Active Renan aHys MD Active FAMOTIDINE 20 MG TABS by mouth twice a day FAMOTI DINE 91492037914 Active Mitch Urbina DO Active ADULT ASPIRIN LOW STRENGTH 81 MG TBDP 1 by mouth every daily ASPIRIN 69243478699 Active Mitch Urbina DO Active METOPROLOL TARTRATE 50 MG TABS 1 by mouth twice daily METOPROLOL TARTRATE 11034864332 Active Domi iRvera MA Active BACTRIM DS 800-160 MG TAB 1 tab by mouth twice daily 2 BACTRIM DS 800-160 MG TAB 859847 TRIMETHOPRIM-SULFAMETHOXAZOLE Inac tive PROVIGIL 100 MG TABS Take one by mouth daily 4 PROVIGIL 100 MG TABS 433554 MODAFINIL Inactive FUROSEMIDE 40 MG TABS 1 by mouth daily FU ROSEMIDE 40 MG TABS 807167 FUROSEMIDE Inactive KLOR-CON 20 MEQ PACK Take one by mouth daily 8 KLOR-CON 20 MEQ PACK 618925 POTASSIUM CHLORIDE Inactive LISINOPRIL 5 MG TABS 1 by mouth every day LISINOPRIL 5 MG TABS 635024 LISINOPRIL Inactive COLCRYS 0.6 MG TABS 1 po q 6 hours prn gout pain 03/02 COLCRYS 0.6 MG TABS 559450 COLCHICINE Inactive JANUVIA 100 MG TABS 1/2 by mouth every day JANUVI A 100 MG TABS SITAGLIPTIN PHOSPHATE Inactive SIMVASTATIN 20 MG TABS 1 tab daily at bedtime SIMVASTATIN 20 MG TABS 297325 SIMVASTATIN Inactive COUMADIN 6 MG TABS 1 by mouth every other day COUMADIN 6 MG TABS 656523 WARFARIN SODIUM Inactive COUMADIN 5 MG TABS 1 by mouth every other day COUMADIN 5 MG TABS 038520 WARFARIN SODIUM Inactive LISINOPRIL 20 MG TABS 1 tab po at HS KOKI NOPRIL 20 MG TABS 692507 LISINOPRIL Inactive LISINOPRIL-HYDROCHLOROTHIAZIDE 20-12.5 MG TABS 1 tab by mouth da rocky LISINOPRIL-HYDROCHLOROTHIAZIDE 20-12.5 MG TABS 341662 LISINOPRIL-HYDROCHLOROTHIAZIDE Inactive POLYTRIM 79292-1.1 UNIT/ML-% SOLN 1 drop in affected e ye every 3 hours while awake x 7 days POLYTRIM 68964-6.1 UNIT/ML-% SOLN 37877 7 POLYMYXIN B-TRIMETHOPRIM Inactive COUMADIN 4 MG TABS 1 tablet daily COUMADIN 4 MG TABS 577046 WARFARIN SODIUM Inactive CLONIDINE HCL 0.1 MG TABS 1 po bid 7 days, then 1/2 tab po b id 7 days CLONIDINE HCL 0.1 MG TABS 737131 CLONIDINE HCL I nactive ALLOPURINOL 300 MG TABS Take 1 tablet by mouth daily 2 ALLOPURINOL 300 MG TABS 505477 ALLOPURINOL Inactive MECLIZINE HCL 25 MG TAB 1 po tid 3 days, then 1/2 tab tid 3 days MECLIZINE HCL 25 MG TAB 655961 MECLIZINE HCL Inactive LOVENOX 100 MG/ML SC SOLN One injection twice a day 09/15/15 LOVENOX 100 MG/ML SC SOLN 134119 ENOXAPARIN SODIUM Inactive Vital Signs Date Name [...] Ag - Chemistry sodium, serum 141 mmol/L 790-107 3760/07/06 potassium, serum 4.4 mmol/L 3.5-5.2 chloride, serum [...] - Chem istry sodium, serum 136 mmol/L 665-206 4284/01/14 carbon dioxide, venous blood 25.4 mmol/L 21.0-32 [...] 7.0 % 4.3-6.0 cholesterol, serum 120 mg/dL 346-543 0600/07/06 triglyceride, serum, fasting 186 mg/dL 30-200 HDL [...] 1.0-3.5 Encounters Code Encounter Date Provider Facility CPT-06866 Level 3 Est. Patient 09:34:30 PACKER DRIED BEEF Mitch luis [facility] CPT-35646 Level 3 Est. Patient 09:37:15 CDT Mitch luis [facility] CPT-06252 Level 3 Est. Patient 17:01:00 PACKER DRIED BEEF Mitch luis [facility] CPT-36853 Level 3 Est. Patient 13:53:19 PACKER DRIED BEEF Mitch luis [facility] CPT-09069 Level 3 Est. Patient 19:19:37 PACKER DRIED BEEF Mitch luis [facility] CPT-80920 Level 3 Est. Patient 13:25:53 PACKER DRIED BEEF Tavo toure MD [facility] CPT-98290 Level 3 Est. Patient 18:17:28 CDT Mitch luis [facility] CPT-11640 Level 3 Est. Patient 15:22:57 CDT Mitch luis [facility] CPT-75147 Level 3 Est. Patient 18:21:50 CDT Mitch luis [facility] CPT-13457 Level 3 Est. Patient 18:20:38 CDT Mitch luis [facility] CPT-56333 Level 3 Est. Patient 15:37:55 CDT Mitch luis [facility] CPT-93593 Level 2 Est. Patient 15:54:44 CDT Carmine benton MD [facility] CPT-36716 Level 3 Est. Patient 21:46:01 PACKER DRIED BEEF Mitch luis [facility] CPT-53295 Level 3 Est. Patient 22:15:50 CDT Mitch luis [facility] CPT-12740 Level 3 Est. Patient 10:48:15 CDT Mitch luis [facility] CPT-91920 Level 3 Est. Patient 23:20:57 CDT Tavo toure MD [facility] CPT-06906 Level 3 Est. Patient 16:26:13 CDT Mitch luis [facility] Procedures Code Procedure Name Date Entry Date Standard Desc ription CPT-60539 Venipuncture Draw Fee 08:32:21 PACKER DRIED BEEF CPT-07905 Venipuncture Draw Fee 09:38:56 PACKER DRIED BEEF CPT-61267 No Charge Offi Visit 21:36:07 CDT 1 CPT-62097 Venipuncture Draw Fee 10:13:28 PACKER DRIED BEEF CPT-57665 Venipuncture Draw Fee 08:31:11 CDT CPT-19749 Aspir/Inject Med Joint 18:17:28 CDT CPT-69799 Venipuncture Draw Fee 10:13:30 CDT CPT-34392 Venipuncture Draw Fee 08:31:43 PACKER DRIED BEEF CPT-JTINJ Joint Injection 18:34:50 CDT CPT-81746 Knee 3V 12:25:09 CDT CPT-98423 Venipuncture Draw Fee 12:15:57 CDT CPT-060 Medical Surveillance Exam 21:31:43 CDT 2011 CPT-45917 Venipuncture Draw Fee 08:32:05 PACKER DRIED BEEF CPT-OV Office Visit 18:19:06 CDT
--- OUTSIDE RECORDS SUMMARY | 2020-01-18 13:08 | XMS REPORT | Clinical Summary ---
[...] of vessel, [place] or graft EDEMA 782.3 Active Mitch Urbina DO Stephen ma DEGENERATIVE JOINT DISEASE, KNEES, 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 3 Active Mitch Urbina DO Osteoarthrosis, unsp ecified whether generalized or localized, involving lower leg DIZZINESS 780.4 Active Mitch Ubrina DO D izziness and giddiness CAROTID BRUIT, [...] 1 tablet by mouth daily AMLODIPINE BESYLATE 16441075638 Active Mitch Urbina DO Active MECLIZINE HCL 25 MG TAB 1 po tid 3 days, then 1/2 tab tid 3 days MECLIZINE HCL 07949179229 No Longer Active Corey SEGURA Active ALLOPURINOL 300 MG TABS Take 1 tablet by mouth daily 2 ALLOPURINOL 99767909481 No Longer Active Corey SEGURA Activ e CLONIDINE HCL 0.1 MG TABS 1 po bid 7 days, then 1/2 tab po b id 7 days CLONIDINE HCL 45014349403 No Longer Active Corey SEGURA Active COUMADIN 5 MG TABS 1 tab PO daily WARFARIN SODIUM 02485450973 Active Mitch Urbina DO Active COUMADIN 4 MG TABS 1 tablet daily WARFARIN SODI UM 59724640235 No Longer Active Corey SEGURA Active POLYTRIM 33257-4.1 UNIT/ML-% SOLN 1 drop in affected e ye every 3 hours while awake x 7 days POLYMYXIN B-TRIMETHOPRIM 77723936773 N o Longer Active Corey SEGURA Active LOSARTAN POTASSIUM-HCTZ 100-12.5 MG TABS 1 by mouth da rocky for high blood pressure LOSARTAN POTASSIUM-HCTZ 24953193753 Active Stephy Urbina DO Active LISINOPRIL-HYDROCHLOROTHIAZIDE 20-12.5 MG TABS 1 tab by mouth da rocky LISINOPRIL-HYDROCHLOROTHIAZIDE 49640949199 No Longer Active Mitch luis DO Active LISINOPRIL 20 MG TABS 1 tab po at HS LISINOPRIL 63656741588 No Longer Active Mitch Urbina DO Active COUMADIN 5 MG TABS 1 by mouth every other day WARFARIN SODIUM 01425853040 No Longer Active Mitch Urbina DO Active COUMADIN 6 MG TABS 1 by mouth every other day WARFARIN SODIUM 32031976802 No Longer Active Mitch Urbina DO Active COLCRYS 0.6 MG TABS 1 tab qid prn gout COLCHICINE 61353225961 Active Corey SEGURA Active SIMVASTATIN 40 MG TABS 1 tab daily at bedtime S IMVASTATIN 67262702290 Active Mitch Urbina DO Active SIMVASTATIN 20 MG TABS 1 tab daily at bedtime S IMVASTATIN 93783201528 No Longer Active Mitch Urbina DO Active LOVENOX 100 MG/ML SC SOLN One injection twice a day 09/15/15 ENOXAPARIN SODIUM 67070088619 No Longer Active Carmine Navarrete ctive JANUVIA 50 MG TABS Take one by mouth daily DIEGO GLIPTIN PHOSPHATE 67710582054 Active Domi Rivera MA Active JANUVIA 100 MG TABS 1/2 by mouth every day DIEGO GLIPTIN PHOSPHATE 47199678781 No Longer Active Bijal Segal RN Active METFORMIN HCL 500 MG TABS 2 by mouth twice daily METFORMIN HCL 94537801346 Active Mitch Urbina DO Active GLIMEPIRIDE 4 MG TABS 1 tab po bid GLIMEPIRIDE 107915 55524 Active Mitch Urbina DO Active COLCRYS 0.6 MG TABS 1 po q 6 hours prn gout pain 03/02 COLCHICINE 11159934510 No Longer Active Camila Reese Active LISINOPRIL 5 MG TABS 1 by mouth every day LISIN OPRIL 41073582525 No Longer Active Nguyenmolly Perez Active KLOR-CON 20 MEQ PACK Take one by mouth daily 8 POTASSIUM CHLORIDE 91618191682 No Longer Active Nguyen Perez Active FUROSEMIDE 40 MG TABS 1 by mouth daily FUROSEMI DE 86461943059 No Longer Active Nguyen Perez Active PROVIGIL 200 MG TABS 1/2 tab po q day MODAFINIL 76426 684915 Active Mitch Urbina DO Active PROVIGIL 100 MG TABS Take one by mouth daily MO DAFINIL 59676235515 No Longer Active Mitch Urbina DO Active BACTRIM DS 800-160 MG TAB 1 tab by mouth twice daily 2 TRIMETHOPRIM-SULFAMETHOXAZOLE 99014101591 No Longer Active Renan Hays MD Active FAMOTIDINE 20 MG TABS by mouth twice a day FAMOTI DINE 35368783325 Active Mitch W Carlitos DO Active ADULT ASPIRIN LOW STRENGTH 81 MG TBDP 1 by mouth every daily ASPIRIN 21624262645 Active Mitch Urbina DO Active METOPROLOL TARTRATE 50 MG TABS 1 by mouth twice daily METOPROLOL TARTRATE 73753963357 Active Curly Coker MD Active BACTRIM DS 800-160 MG TAB 1 tab by mouth twice daily 2 BACTRIM DS 800-160 MG TAB TRIMETHOPRIM-SULFAMETHOXAZOLE Inac tive PROVIGIL 100 MG TABS Take one by mouth daily 4 PROVIGIL 100 MG TABS 945552 MODAFINIL Inactive FUROSEMIDE 40 MG TABS 1 by mouth daily FU ROSEMIDE 40 MG TABS 204205 FUROSEMIDE Inactive KLOR-CON 20 MEQ PACK Take one by mouth daily 8 KLOR-CON 20 MEQ PACK 664857 POTASSIUM CHLORIDE Inactive LISINOPRIL 5 MG TABS 1 by mouth every day LISINOPRIL 5 MG TABS 058000 LISINOPRIL Inactive COLCRYS 0.6 MG TABS 1 po q 6 hours prn gout pain 03/02 COLCRYS 0.6 MG TABS 375999 COLCHICINE Inactive JANUVIA 100 MG TABS 1/2 by mouth every day JANUVI A 100 MG TABS SITAGLIPTIN PHOSPHATE Inactive SIMVASTATIN 20 MG TABS 1 tab daily at bedtime SIMVASTATIN 20 MG TABS 524983 SIMVASTATIN Inactive COUMADIN 6 MG TABS 1 by mouth every other day COUMADIN 6 MG TABS 003195 WARFARIN SODIUM Inactive COUMADIN 5 MG TABS 1 by mouth every other day COUMADIN 5 MG TABS 255283 WARFARIN SODIUM Inactive LISINOPRIL 20 MG TABS 1 tab po at HS KOKI NOPRIL 20 MG TABS 457996 LISINOPRIL Inactive LISINOPRIL-HYDROCHLOROTHIAZIDE 20-12.5 MG TABS 1 tab by mouth da rocky LISINOPRIL-HYDROCHLOROTHIAZIDE 20-12.5 MG TABS 823941 LISINOPRIL-HYDROCHLOROTHIAZIDE Inactive POLYTRIM 53359-5.1 UNIT/ML-% SOLN 1 drop in affected e ye every 3 hours while awake x 7 days POLYTRIM 82442-1.1 UNIT/ML-% SOLN 24797 7 POLYMYXIN B-TRIMETHOPRIM Inactive COUMADIN 4 MG TABS 1 tablet daily COUMADIN 4 MG TABS 605296 WARFARIN SODIUM Inactive CLONIDINE HCL 0.1 MG TABS 1 po bid 7 days, then 1/2 tab po b id 7 days CLONIDINE HCL 0.1 MG TABS 162209 CLONIDINE HCL I nactive ALLOPURINOL 300 MG TABS Take 1 tablet by mouth daily 2 ALLOPURINOL 300 MG TABS 733631 ALLOPURINOL Inactive MECLIZINE HCL 25 MG TAB 1 po tid 3 days, then 1/2 tab tid 3 days MECLIZINE HCL 25 MG TAB 348330 MECLIZINE HCL Inactive LOVENOX 100 MG/ML SC SOLN One injection twice a day 09/15/15 LOVENOX 100 MG/ML SC SOLN 243108 ENOXAPARIN SODIUM Inactive Vital Signs Date Name [...] Ag - Chemistry sodium, serum 141 mmol/L 301-233 2301/07/06 potassium, serum 4.4 mmol/L 3.5-5.2 chloride, serum [...] Panel - Chemistry sodium, serum 137 mmol/L 556-502 0367/11/14 potassium, serum 4.4 mmol/L 3.5-5.2 chloride, serum [...] 8.0 % 4.3-6.0 cholesterol, serum 130 mg/dL 377-550 4563/11/14 triglyceride, serum, fasting 288 mg/dL 30-200 HDL cholesterol, serum 33 mg/dL 32-96 LDL cholesterol, serum 39 mg/dL 0-130 Lab Report: Comp. Metabolic Panel, HGBA1 C, Lipid Panel, Prothrombin Time - Chemistry sodium, serum 136 mmol/L 944-212 6754/12/02 potassium, serum 4.4 mmol/L 3.5-5.2 chloride, serum [...] 7.6 % 4.3-6.0 cholesterol, serum 117 mg/dL 679-845 4541/12/02 triglyceride, serum, fasting 226 mg/dL 30-200 HDL [...] 7.0 % 4.3-6.0 cholesterol, serum 120 mg/dL 514-720 2956/07/06 triglyceride, serum, fasting 186 mg/dL 30-200 HDL [...] 1.0-3.5 Encounters Code Encounter Date Provider Facility CPT-87512 Level 3 Est. Patient 09:37:15 CDT Mitch W L janelle DO [facility] CPT-96062 Level 3 Est. Patient 17:01:00 TYRE FITTER Mitch W L janelle [facility] CPT-37764 Level 3 Est. Patient 13:53:19 TYRE FITTER Mitch W L janelle [facility] CPT-25468 Level 3 Est. Patient 19:19:37 TYRE FITTER Mitch W L janelle [facility] CPT-81776 Level 3 Est. Patient 13:25:53 TYRE FITTER Tavo toure MD [facility] CPT-03988 Level 3 Est. Patient 18:17:28 CDT Mitch Ambrose L janelle [facility] CPT-98468 Level 3 Est. Patient 15:22:57 CDT Mitch Ambrose L janelle [facility] CPT-94169 Level 3 Est. Patient 18:21:50 CDT Mitch W L janelle [facility] CPT-42874 Level 3 Est. Patient 18:20:38 CDT Mitch W L janelle [facility] CPT-52708 Level 3 Est. Patient 15:37:55 CDT Mitch W L janelle [facility] CPT-13456 Level 2 Est. Patient 15:54:44 CDT Carmine benton MD [facility]-26422 Level 3 Est. Patient 21:46:01 TYRE FITTER Mitch luis [facility] CPT-80090 Level 3 Est. Patient 22:15:50 CDT Mitch luis [facility] CPT-46038 Level 3 Est. Patient 10:48:15 CDT Mitch luis [facility] CPT-35328 Level 3 Est. Patient 23:20:57 CDT Tavo toure MD [facility] CPT-91603 Level 3 Est. Patient 16:26:13 CDT Mitch luis [facility] Procedures Code Procedure Name Date Entry Date Standard Desc ription CPT-85539 No Charge Offi Visit 21:36:07 CDT 1 CPT-17803 Venipuncture Draw Fee 10:13:28 TYRE FITTER CPT-46077 Venipuncture Draw Fee 08:31:11 CDT CPT-62488 Aspir/Inject Med Joint 18:17:28 CDT CPT-18143 Venipuncture Draw Fee 10:13:30 CDT CPT-78366 Venipuncture Draw Fee 08:31:43 TYRE FITTER CPT-JTINJ Joint Injection 18:34:50 CDT CPT-13808 Knee 3V 12:25:09 CDT CPT-40215 Venipuncture Draw Fee 12:15:57 CDT CPT-060 Medical Surveillance Exam 21:31:43 CDT 2011 CPT-66962 Venipuncture Draw Fee 08:32:05 TYRE FITTER CPT-OV Office Visit 18:19:06 CDT
--- OUTSIDE RECORDS SUMMARY | 2020-01-18 13:08 | XMS REPORT | Clinical Summary ---
Author Author Admin, Mitch Leon Organization [facility] Address Unknown Phone Unavailable Allergies, Adverse Reactions, [...] Coronary atherosclerosis of unspecified type of vessel, [place] or graft EDEMA 782.3 Resolved Mitch Urbina [...] 1 tablet by mouth daily AMLODIPINE BESYLATE 64766384328 No Longer Active Joe Williamson APRN Active MITIGARE 0.6 MG ORAL CAPS 2 capsules at onset of gout pain, then take one capsule at 1 hour if symptoms persist. COLCHICINE 59 971955585 Active Mitch Urbina DO Active COUMADIN 1 MG TAB 2 tabs orally daily with the 5mg tab to equal 7mg daily WARFARIN SODIUM 96206516683 Active Mitch Urbina DO Active COLCRYS 0.6 MG TABS 1 tab qid prn gout COLCHICINE 15966630187 Active Onrma Sage Active INVOKANA 100 MG ORAL TABS 1 tablet orally daily CANAGLIFLOZIN 03853662604 Active Mitch Urbina DO Active MINOXIDIL 2.5 MG TABS 1 tablet daily for high blood pressure 10/23 MINOXIDIL 81487882498 Active Mitch Urbina DO Active MECLIZINE HCL 25 MG TAB 1 po tid 3 days, then 1/2 tab tid 3 days MECLIZINE HCL 27522797662 No Longer Active Corey SEGURA Active ALLOPURINOL 300 MG TABS Take 1 tablet by mouth daily 2 ALLOPURINOL 54741024261 No Longer Active Corey SEGURA Activ e CLONIDINE HCL 0.1 MG TABS 1 po bid 7 days, then 1/2 tab po b id 7 days CLONIDINE HCL 71262063486 No Longer Active Corey SEGURA Active COUMADIN 5 MG TABS 1 tab PO daily WARFARIN SODIUM 18135262726 Active Mitch Urbina DO Active COUMADIN 4 MG TABS 1 tablet daily WARFARIN SODI UM 12593290869 No Longer Active Corey SEGURA Active POLYTRIM 58330-8.1 UNIT/ML-% SOLN 1 drop in affected e ye every 3 hours while awake x 7 days POLYMYXIN B-TRIMETHOPRIM 53864763234 N o Longer Active Corey SEGURA Active LOSARTAN POTASSIUM-HCTZ 100-12.5 MG TABS 1 by mouth da [place] for high blood pressure LOSARTAN POTASSIUM-HCTZ 72511308012 Active Stephy Urbina DO Active LISINOPRIL-HYDROCHLOROTHIAZIDE 20-12.5 MG TABS 1 tab by mouth da rocky LISINOPRIL-HYDROCHLOROTHIAZIDE 84503385792 No Longer Active Mitch luis DO Active LISINOPRIL 20 MG TABS 1 tab po at HS LISINOPRIL 07854776699 No Longer Active Mitch Urbina DO Active COUMADIN 5 MG TABS 1 by mouth every other day WARFARIN SODIUM 85594857631 No Longer Active Mitch Arnol Carlitos DO Active COUMADIN 6 MG TABS 1 by mouth every other day WARFARIN SODIUM 13454197316 No Longer Active Mitch Urbina DO Active SIMVASTATIN 40 MG TABS 1 tab daily at bedtime S IMVASTATIN 21876546821 Active Mitch Urbina DO Active SIMVASTATIN 20 MG TABS 1 tab daily at bedtime S IMVASTATIN 37973003037 No Longer Active Mitch Urbina DO Active LOVENOX 100 MG/ML SC SOLN One injection twice a day 09/15/15 ENOXAPARIN SODIUM 33248612725 No Longer Active Carmine Navarrete ctive JANUVIA 50 MG TABS Take one by mouth daily DIEGO GLIPTIN PHOSPHATE 69841373690 Active Mitch Urbina DO Active JANUVIA 100 MG TABS 1/2 by mouth every day DIEGO GLIPTIN PHOSPHATE 17077989941 No Longer Active Bijal Segal RN Active METFORMIN HCL 500 MG TABS 2 by mouth twice daily METFORMIN HCL 32523011727 Active Mitch Urbina DO Active GLIMEPIRIDE 4 MG TABS 1 tab po bid GLIMEPIRIDE 636596 96479 Active Mitch Urbina DO Active COLCRYS 0.6 MG TABS 1 po q 6 hours prn gout pain 03/02 COLCHICINE 72124883663 No Longer Active Camila Reese Active LISINOPRIL 5 MG TABS 1 by mouth every day LISIN OPRIL 00555840760 No Longer Active Nguyen Perez Active KLOR-CON 20 MEQ PACK Take one by mouth daily 8 POTASSIUM CHLORIDE 02565725998 No Longer Active Nguyen Perez Active FUROSEMIDE 40 MG TABS 1 by mouth daily FUROSEMI DE 86116940926 No Longer Active Nguyen Perez Active PROVIGIL 200 MG TABS 1/2 tab po q day MODAFINIL 90876 703208 Active Mitch Urbina DO Active PROVIGIL 100 MG TABS Take one by mouth daily MO DAFINIL 63017262514 No Longer Active Mitch Urbina DO Active BACTRIM DS 800-160 MG TAB 1 tab by mouth twice daily 2 TRIMETHOPRIM-SULFAMETHOXAZOLE 29231316054 No Longer Active Renan Hays MD Active FAMOTIDINE 20 MG TABS by mouth twice a day FAMOTI DINE 52755443561 Active Mithc Urbina DO Active ADULT ASPIRIN LOW STRENGTH 81 MG TBDP 1 by mouth every daily ASPIRIN 67610914090 Active Mitch Urbina DO Active METOPROLOL TARTRATE 50 MG TABS 1 by mouth twice daily METOPROLOL TARTRATE 58098292563 Active Mitch Urbina DO Active BACTRIM DS 800-160 MG TAB 1 tab by mouth twice daily 2 BACTRIM DS 800-160 MG TAB 948510 TRIMETHOPRIM-SULFAMETHOXAZOLE Inac tive PROVIGIL 100 MG TABS Take one by mouth daily 4 PROVIGIL 100 MG TABS 746001 MODAFINIL Inactive FUROSEMIDE 40 MG TABS 1 by mouth daily FU ROSEMIDE 40 MG TABS 547233 FUROSEMIDE Inactive KLOR-CON 20 MEQ PACK Take one by mouth daily 8 KLOR-CON 20 MEQ PACK 9049373 POTASSIUM CHLORIDE Inactive LISINOPRIL 5 MG TABS 1 by mouth every day LISINOPRIL 5 MG TABS 381505 LISINOPRIL Inactive COLCRYS 0.6 MG TABS 1 po q 6 hours prn gout pain 03/02 COLCRYS 0.6 MG TABS 622960 COLCHICINE Inactive JANUVIA 100 MG TABS 1/2 by mouth every day JANUVI A 100 MG TABS SITAGLIPTIN PHOSPHATE Inactive SIMVASTATIN 20 MG TABS 1 tab daily at bedtime SIMVASTATIN 20 MG TABS 752623 SIMVASTATIN Inactive COUMADIN 6 MG TABS 1 by mouth every other day COUMADIN 6 MG TABS 629893 WARFARIN SODIUM Inactive COUMADIN 5 MG TABS 1 by mouth every other day COUMADIN 5 MG TABS 633781 WARFARIN SODIUM Inactive LISINOPRIL 20 MG TABS 1 tab po at HS KOKI NOPRIL 20 MG TABS 276129 LISINOPRIL Inactive LISINOPRIL-HYDROCHLOROTHIAZIDE 20-12.5 MG TABS 1 tab by mouth da rocky LISINOPRIL-HYDROCHLOROTHIAZIDE 20-12.5 MG TABS 544080 LISINOPRIL-HYDROCHLOROTHIAZIDE Inactive POLYTRIM 41334-3.1 UNIT/ML-% SOLN 1 drop in affected e ye every 3 hours while awake x 7 days POLYTRIM 46778-1.1 UNIT/ML-% SOLN 63254 7 POLYMYXIN B-TRIMETHOPRIM Inactive COUMADIN 4 MG TABS 1 tablet daily COUMADIN 4 MG TABS 083785 WARFARIN SODIUM Inactive CLONIDINE HCL 0.1 MG TABS 1 po bid 7 days, then 1/2 tab po b id 7 days CLONIDINE HCL 0.1 MG TABS 549167 CLONIDINE HCL I nactive ALLOPURINOL 300 MG TABS Take 1 tablet by mouth daily 2 ALLOPURINOL 300 MG TABS 640253 ALLOPURINOL Inactive MECLIZINE HCL 25 MG TAB 1 po tid 3 days, then 1/2 tab tid 3 days MECLIZINE HCL 25 MG TAB 606888 MECLIZINE HCL Inactive AMLODIPINE BESYLATE 5 MG TABS 1 tablet by mouth daily AMLODIPINE BESYLATE 5 MG TABS 371970 AMLODIPINE BESYLATE Inactive LOVENOX 100 MG/ML SC SOLN One injection twice a day 09/15/15 LOVENOX 100 MG/ML SC SOLN 775169 ENOXAPARIN SODIUM Inactive Vital Signs Date Name [...] Description Chart Maintenance: [facility] - Chemistry occult blood, stool (E&M) Positive Lab Report: Lipid Panel, HEPATIC PANEL, MICROALB/CREAT W/RATIO, HGBA1C, CBC - Chemistry cholesterol, serum 136 mg/dL 134-478 5678/08/09 triglyceride, serum, fasting 187 mg/dL 30-200 HDL [...] 1.0-3.5 Encounters Code Encounter Date Provider Facility CPT-15538 Level 4 Est. Patient 09:30:18 CDT Mitch luis [facility] CPT-18913 Level 3 Est. Patient 15:10:14 CDT Joe kamara [facility] CPT-68320 Level 3 Est. Patient 15:03:46 CDT Joe kamara [facility] CPT-10951 Level 3 Est. Patient 14:21:06 CDT Mitch luis [facility] CPT-10518 Level 3 Est. Patient 14:52:06 CDT Joe kamara [facility] CPT-37823 Level 3 Est. Patient 09:34:30 DEPUTY CORONER Mitch luis [facility] CPT-30883 Level 3 Est. Patient 09:37:15 CDT Mitch luis [facility] CPT-56937 Level 3 Est. Patient 17:01:00 DEPUTY CORONER Mitch luis DO [facility] CPT-38893 Level 3 Est. Patient 13:53:19 DEPUTY CORONER Mitch luis [facility] CPT-76696 Level 3 Est. Patient 19:19:37 DEPUTY CORONER Mitch luis [facility] CPT-67848 Level 3 Est. Patient 13:25:53 DEPUTY CORONER Tavo toure MD [facility] CPT-19341 Level 3 Est. Patient 18:17:28 CDT Mitch luis [facility] CPT-59154 Level 3 Est. Patient 15:22:57 CDT Mitch luis [facility] CPT-41137 Level 3 Est. Patient 18:21:50 CDT Mitch luis [facility] CPT-35011 Level 3 Est. Patient 18:20:38 CDT Mitch luis [facility] CPT-46290 Level 3 Est. Patient 15:37:55 CDT Mitch luis [facility] CPT-21482 Level 2 Est. Patient 15:54:44 CDT Carmine benton MD [facility] CPT-08261 Level 3 Est. Patient 21:46:01 DEPUTY CORONER Mitch luis [facility] CPT-48287 Level 3 Est. Patient 22:15:50 CDT Mitch luis [facility] CPT-68496 Level 3 Est. Patient 10:48:15 CDT Mitch Arnol L janelle [facility] CPT-47896 Level 3 Est. Patient 23:20:57 CDT Tavo toure MD [facility] CPT-40589 Level 3 Est. Patient 16:26:13 CDT Mitch Castellano janelle [facility] Procedures Code Procedure Name Date Entry Date Standard Desc ription CPT-72394 PT/INR - LAB USE ONLY 13:32:49 DEPUTY CORONER CPT-29799 Venipuncture Draw Fee 13:32:49 DEPUTY CORONER CPT-70343 PT/INR - LAB USE ONLY 10:34:49 DEPUTY CORONER CPT-28951 Venipuncture Draw Fee 10:34:48 DEPUTY CORONER CPT-40212 PT/INR - LAB USE ONLY 09:22:03 DEPUTY CORONER CPT-60605 Venipuncture Draw Fee 09:22:02 DEPUTY CORONER CPT-38425 Hemoccult IFOBT - LAB USE ONLY 10:27:22 CDT CPT-64895 Venipuncture Draw Fee 08:27:08 CDT CPT-33143 Liver Profile - LAB USE ONLY 08:27:07 CDT 2 CPT-01679 Microalbumin - LAB USE ONLY 08:27:07 CDT 20 25/05/09 CPT-93120 PT/INR - LAB USE ONLY 08:27:07 CDT CPT-74164 HGBA1C - LAB USE ONLY 08:27:07 CDT CPT-02751 CBC - LAB USE ONLY 08:27:07 CDT CPT-20805 Venipuncture Draw Fee 11:09:14 CDT CPT-22043 Venipuncture Draw Fee 08:32:21 DEPUTY CORONER CPT-73233 Venipuncture Draw Fee 09:38:56 DEPUTY CORONER CPT-91669 No Charge Offi Visit 21:36:07 CDT 1 CPT-85622 Venipuncture Draw Fee 10:13:28 DEPUTY CORONER CPT-50314 Venipuncture Draw Fee 08:31:11 CDT CPT-12663 Aspir/Inject Med Joint 18:17:28 CDT CPT-73122 Venipuncture Draw Fee 10:13:30 CDT CPT-55282 Venipuncture Draw Fee 08:31:43 DEPUTY CORONER CPT-JTINJ Joint Injection 18:34:50 CDT CPT-21948 Knee 3V 12:25:09 CDT CPT-56214 Venipuncture Draw Fee 12:15:57 CDT CPT-060 Medical Surveillance Exam 21:31:43 CDT 2011 CPT-69251 Venipuncture Draw Fee 08:32:05 DEPUTY CORONER CPT-OV Office Visit 18:19:06 CDT
--- OUTSIDE RECORDS SUMMARY | 2020-01-18 13:08 | XMS REPORT | Clinical Summary ---
Author Author Admin, Mitch Leon Organization [facility] Address Unknown Phone Unavailable Allergies, Adverse Reactions, [...] vessel, upper [place] or graft EDEMA 782.3 Resolved Mitch Urbina [...] 1 tablet by mouth daily AMLODIPINE BESYLATE 38865746335 No Longer Active Joe Williamson APRN Active MITIGARE 0.6 MG ORAL CAPS 2 capsules at onset of gout pain, then take one capsule at 1 hour if symptoms persist. COLCHICINE 59 613188246 Active Mitch Urbina DO Active COUMADIN 1 MG TAB 2 tabs orally daily with the 5mg tab to equal 7mg daily WARFARIN SODIUM 27139390113 Active Mitch Urbina DO Active COLCRYS 0.6 MG TABS 1 tab qid prn gout COLCHICINE 02343789729 Active Norma Sage Active INVOKANA 100 MG ORAL TABS 1 tablet orally daily CANAGLIFLOZIN 67226628290 Active Mitch Urbina DO Active MINOXIDIL 2.5 MG TABS 1 tablet daily for high blood pressure 10/23 MINOXIDIL 35070028641 Active Mitch Urbina DO Active MECLIZINE HCL 25 MG TAB 1 po tid 3 days, then 1/2 tab tid 3 days MECLIZINE HCL 81341341223 No Longer Active Corey SEGURA Active ALLOPURINOL 300 MG TABS Take 1 tablet by mouth daily 2 ALLOPURINOL 67092037117 No Longer Active Corey SEGURA Activ e CLONIDINE HCL 0.1 MG TABS 1 po bid 7 days, then 1/2 tab po b id 7 days CLONIDINE HCL 81217828491 No Longer Active Corey SEGURA Active COUMADIN 5 MG TABS 1 tab PO daily WARFARIN SODIUM 14989282999 Active Mitch Urbina DO Active COUMADIN 4 MG TABS 1 tablet daily WARFARIN SODI UM 39189880305 No Longer Active Corey SEGURA Active POLYTRIM 94974-4.1 UNIT/ML-% SOLN 1 drop in affected e ye every 3 hours while awake x 7 days POLYMYXIN B-TRIMETHOPRIM 13093961294 N o Longer Active Corey SEGURA Active LOSARTAN POTASSIUM-HCTZ 100-12.5 MG TABS 1 by mouth da rocky for high blood pressure LOSARTAN POTASSIUM-HCTZ 46449271643 Active Stephy Urbina DO Active LISINOPRIL-HYDROCHLOROTHIAZIDE 20-12.5 MG TABS 1 tab by mouth da rocky LISINOPRIL-HYDROCHLOROTHIAZIDE 34449351580 No Longer Active Mitch luis DO Active LISINOPRIL 20 MG TABS 1 tab po at HS LISINOPRIL 51054810208 No Longer Active Mitch Urbina DO Active COUMADIN 5 MG TABS 1 by mouth every other day WARFARIN SODIUM 90649984373 No Longer Active Mitch Arnol Carlitos DO Active COUMADIN 6 MG TABS 1 by mouth every other day WARFARIN SODIUM 62032265358 No Longer Active Mitch Urbina DO Active SIMVASTATIN 40 MG TABS 1 tab daily at bedtime S IMVASTATIN 60219161564 Active Mitch Urbina DO Active SIMVASTATIN 20 MG TABS 1 tab daily at bedtime S IMVASTATIN 86293702098 No Longer Active Mitch Urbina DO Active LOVENOX 100 MG/ML SC SOLN One injection twice a day 09/15/15 ENOXAPARIN SODIUM 20615186801 No Longer Active Carmine Navarrete ctive JANUVIA 50 MG TABS Take one by mouth daily DIEGO GLIPTIN PHOSPHATE 82420475613 Active Mitch Urbina DO Active JANUVIA 100 MG TABS 1/2 by mouth every day DIEGO GLIPTIN PHOSPHATE 31690631256 No Longer Active Bijal Segal RN Active METFORMIN HCL 500 MG TABS 2 by mouth twice daily METFORMIN HCL 67179359000 Active Mitch Urbina DO Active GLIMEPIRIDE 4 MG TABS 1 tab po bid GLIMEPIRIDE 331215 47856 Active Mitch Urbina DO Active COLCRYS 0.6 MG TABS 1 po q 6 hours prn gout pain 03/02 COLCHICINE 96669032128 No Longer Active Camila Reese Active LISINOPRIL 5 MG TABS 1 by mouth every day LISIN OPRIL 73745582890 No Longer Active Nguyen Perez Active KLOR-CON 20 MEQ PACK Take one by mouth daily 8 POTASSIUM CHLORIDE 52548554008 No Longer Active Nguyen Perez Active FUROSEMIDE 40 MG TABS 1 by mouth daily FUROSEMI DE 72492862951 No Longer Active Nguyen Perez Active PROVIGIL 200 MG TABS 1/2 tab po q day MODAFINIL 94591 117269 Active Mitch Urbina DO Active PROVIGIL 100 MG TABS Take one by mouth daily MO DAFINIL 41930871579 No Longer Active Mitch Urbina DO Active BACTRIM DS 800-160 MG TAB 1 tab by mouth twice daily 2 TRIMETHOPRIM-SULFAMETHOXAZOLE 99457317143 No Longer Active Renan Hays MD Active FAMOTIDINE 20 MG TABS by mouth twice a day FAMOTI DINE 87308737502 Active Mitch Urbina DO Active ADULT ASPIRIN LOW STRENGTH 81 MG TBDP 1 by mouth every daily ASPIRIN 12532509288 Active Mitch Urbina DO Active METOPROLOL TARTRATE 50 MG TABS 1 by mouth twice daily METOPROLOL TARTRATE 86693556382 Active Mitch Urbina DO Active BACTRIM DS 800-160 MG TAB 1 tab by mouth twice daily 2 BACTRIM DS 800-160 MG TAB 362418 TRIMETHOPRIM-SULFAMETHOXAZOLE Inac tive PROVIGIL 100 MG TABS Take one by mouth daily 4 PROVIGIL 100 MG TABS 768465 MODAFINIL Inactive FUROSEMIDE 40 MG TABS 1 by mouth daily FU ROSEMIDE 40 MG TABS 843128 FUROSEMIDE Inactive KLOR-CON 20 MEQ PACK Take one by mouth daily 8 KLOR-CON 20 MEQ PACK 8720568 POTASSIUM CHLORIDE Inactive LISINOPRIL 5 MG TABS 1 by mouth every day LISINOPRIL 5 MG TABS 018054 LISINOPRIL Inactive COLCRYS 0.6 MG TABS 1 po q 6 hours prn gout pain 03/02 COLCRYS 0.6 MG TABS 430396 COLCHICINE Inactive JANUVIA 100 MG TABS 1/2 by mouth every day JANUVI A 100 MG TABS SITAGLIPTIN PHOSPHATE Inactive SIMVASTATIN 20 MG TABS 1 tab daily at bedtime SIMVASTATIN 20 MG TABS 103060 SIMVASTATIN Inactive COUMADIN 6 MG TABS 1 by mouth every other day COUMADIN 6 MG TABS 910557 WARFARIN SODIUM Inactive COUMADIN 5 MG TABS 1 by mouth every other day COUMADIN 5 MG TABS 732293 WARFARIN SODIUM Inactive LISINOPRIL 20 MG TABS 1 tab po at HS KOKI NOPRIL 20 MG TABS 615680 LISINOPRIL Inactive LISINOPRIL-HYDROCHLOROTHIAZIDE 20-12.5 MG TABS 1 tab by mouth da rocky LISINOPRIL-HYDROCHLOROTHIAZIDE 20-12.5 MG TABS 795292 LISINOPRIL-HYDROCHLOROTHIAZIDE Inactive POLYTRIM 12470-1.1 UNIT/ML-% SOLN 1 drop in affected e ye every 3 hours while awake x 7 days POLYTRIM 93193-5.1 UNIT/ML-% SOLN 09170 7 POLYMYXIN B-TRIMETHOPRIM Inactive COUMADIN 4 MG TABS 1 tablet daily COUMADIN 4 MG TABS 916964 WARFARIN SODIUM Inactive CLONIDINE HCL 0.1 MG TABS 1 po bid 7 days, then 1/2 tab po b id 7 days CLONIDINE HCL 0.1 MG TABS 365472 CLONIDINE HCL I nactive ALLOPURINOL 300 MG TABS Take 1 tablet by mouth daily 2 ALLOPURINOL 300 MG TABS 909050 ALLOPURINOL Inactive MECLIZINE HCL 25 MG TAB 1 po tid 3 days, then 1/2 tab tid 3 days MECLIZINE HCL 25 MG TAB 156661 MECLIZINE HCL Inactive AMLODIPINE BESYLATE 5 MG TABS 1 tablet by mouth daily AMLODIPINE BESYLATE 5 MG TABS 786963 AMLODIPINE BESYLATE Inactive LOVENOX 100 MG/ML SC SOLN One injection twice a day 09/15/15 LOVENOX 100 MG/ML SC SOLN 968307 ENOXAPARIN SODIUM Inactive Vital Signs Date Name [...] ... - Chemistry sodium, serum 144 mmol/L 508-272 5554/06/12 carbon dioxide, venous blood 26.6 mmol/L 21.0-32 [...] CBC - Chemistry cholesterol, serum 136 mg/dL 248-649 0078/08/09 triglyceride, serum, fasting 187 mg/dL 30-200 HDL [...] 1.0-3.5 Encounters Code Encounter Date Provider Facility CPT-16891 Level 4 Est. Patient 09:30:18 CDT Mitch luis [facility] CPT-14625 Level 3 Est. Patient 15:10:14 CDT Joe kamara [facility] CPT-37346 Level 3 Est. Patient 15:03:46 CDT Joe kamara [facility] CPT-57393 Level 3 Est. Patient 14:21:06 CDT Mitch luis [facility] CPT-86178 Level 3 Est. Patient 14:52:06 CDT Joe kamara [facility] CPT-47884 Level 3 Est. 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 Patient 09:37:15 CDT Mitch W L ee [facility] CPT-92049 Level 3 Est. Patient 17:01:00 MECHANICAL ENGINEERING PROFESSOR Mitch W L ee [facility] CPT-07263 Level 3 Est. Patient 13:53:19 MECHANICAL ENGINEERING PROFESSOR Mitch W L ee [facility] CPT-23391 Level 3 Est. Patient 19:19:37 MECHANICAL ENGINEERING PROFESSOR Mitch [facility] L ee [facility] CPT-45324 Level 3 Est. Patient 13:25:53 MECHANICAL ENGINEERING PROFESSOR Tavo toure MD [facility] named [facility]-71017 Level 3 Est. Patient 18:17:28 CDT Mitch W L ee [facility] CPT-73781 Level 3 Est. Patient 15:22:57 CDT Mitch [facility] L e[facility]-18920 Level 3 Est. Patient 18:21:50 CDT Mitch W L ee [facility] CPT-84913 Level 3 Est. Patient 18:20:38 CDT Mitch W L e[facility]-48558 Level 3 Est. Patient 15:37:55 CDT Mitch [facility] L e[facility] CPT-93601 Level 2 Est. Patient 15:54:44 CDT Carmine benton MD [facility]-21123 Level 3 Est. Patient 21:46:01 MECHANICAL ENGINEERING PROFESSOR Mitch [facility] L e[facility] CPT-05303 Level 3 Est. Patient 22:15:50 CDT Mtich W L ee [facility] CPT-23846 Level 3 Est. Patient 10:48:15 CDT Mitch [facility] L e[facility] CPT-31220 Level 3 Est. Patient 23:20:57 CDT Tavo toure MD [facility]-36596 Level 3 Est. Patient 16:26:13 CDT Mitch luis DO [facility] Procedures Code Procedure Name Date Entry Date Standard Desc ription CPT-31272 PT/INR - LAB USE ONLY 13:32:49 MECHANICAL ENGINEERING PROFESSOR CPT-42223 Venipuncture Draw Fee 13:32:49 MECHANICAL ENGINEERING PROFESSOR CPT-19089 PT/INR - LAB USE ONLY 10:34:49 MECHANICAL ENGINEERING PROFESSOR CPT-73899 Venipuncture Draw Fee 10:34:48 MECHANICAL ENGINEERING PROFESSOR CPT-40390 PT/INR - LAB USE ONLY 09:22:03 MECHANICAL ENGINEERING PROFESSOR CPT-70075 Venipuncture Draw Fee 09:22:02 MECHANICAL ENGINEERING PROFESSOR CPT-93672 Hemoccult IFOBT - LAB USE ONLY 10:27:22 CDT CPT-16351 Venipuncture Draw Fee 08:27:08 CDT CPT-51190 Liver Profile - LAB USE ONLY 08:27:07 CDT 2 CPT-60603 Microalbumin - LAB USE ONLY 08:27:07 CDT 20 25/05/09 CPT-51038 PT/INR - LAB USE ONLY 08:27:07 CDT CPT-89330 HGBA1C - LAB USE ONLY 08:27:07 CDT CPT-73705 CBC - LAB USE ONLY 08:27:07 CDT CPT-66381 Venipuncture Draw Fee 11:09:14 CDT CPT-89030 Venipuncture Draw Fee 08:32:21 MECHANICAL ENGINEERING PROFESSOR CPT-43114 Venipuncture Draw Fee 09:38:56 MECHANICAL ENGINEERING PROFESSOR CPT-11025 No Charge Offi Visit 21:36:07 CDT 1 CPT-92930 Venipuncture Draw Fee 10:13:28 MECHANICAL ENGINEERING PROFESSOR CPT-27804 Venipuncture Draw Fee 08:31:11 CDT CPT-81248 Aspir/Inject Med Joint 18:17:28 CDT CPT-53788 Venipuncture Draw Fee 10:13:30 CDT CPT-38341 Venipuncture Draw Fee 08:31:43 MECHANICAL ENGINEERING PROFESSOR CPT-JTINJ Joint Injection 18:34:50 CDT CPT-39921 Knee 3V 12:25:09 CDT CPT-48350 Venipuncture Draw Fee 12:15:57 CDT CPT-060 Medical Surveillance Exam 21:31:43 CDT 2011 CPT-09902 Venipuncture Draw Fee 08:32:05 MECHANICAL ENGINEERING PROFESSOR CPT-OV Office Visit 18:19:06 CDT
--- OUTSIDE RECORDS SUMMARY | 2020-01-18 13:08 | XMS REPORT | Clinical Summary ---
Author Author Admin, Mitch Leon Organization [facility] Address Unknown Phone Unavailable Allergies, Adverse [...] of unspecified type of vessel, [place] or graft EDEMA 782.3 Active Mitch Urbina [...] 1 tablet by mouth daily AMLODIPINE BESYLATE 06733926999 Active Mitch Urbina DO Active MECLIZINE HCL 25 MG TAB 1 po tid 3 days, then 1/2 tab tid 3 days MECLIZINE HCL 47023395392 No Longer Active Corey SEGURA Active ALLOPURINOL 300 MG TABS Take 1 tablet by mouth daily 2 ALLOPURINOL 79732144164 No Longer Active Corey SEGURA Activ e CLONIDINE HCL 0.1 MG TABS 1 po bid 7 days, then 1/2 tab po b id 7 days CLONIDINE HCL 49622989760 No Longer Active Corey SEGURA Active COUMADIN 5 MG TABS 1 tab PO daily WARFARIN SODIUM 83916522444 Active Mitch Urbina DO Active COUMADIN 4 MG TABS 1 tablet daily WARFARIN SODI UM 87102494314 No Longer Active Corey SEGURA Active POLYTRIM 28704-1.1 UNIT/ML-% SOLN 1 drop in affected e ye every 3 hours while awake x 7 days POLYMYXIN B-TRIMETHOPRIM 71395845213 N o Longer Active Corey SEGURA Active LOSARTAN POTASSIUM-HCTZ 100-12.5 MG TABS 1 by mouth da rocky for high blood pressure LOSARTAN POTASSIUM-HCTZ 37089670946 Active Stephy Urbina DO Active LISINOPRIL-HYDROCHLOROTHIAZIDE 20-12.5 MG TABS 1 tab by mouth da rocky LISINOPRIL-HYDROCHLOROTHIAZIDE 68903654712 No Longer Active Mitch luis DO Active LISINOPRIL 20 MG TABS 1 tab po at HS LISINOPRIL 56514532913 No Longer Active Mitch Urbina DO Active COUMADIN 5 MG TABS 1 by mouth every other day WARFARIN SODIUM 88121747023 No Longer Active Mitch Urbina DO Active COUMADIN 6 MG TABS 1 by mouth every other day WARFARIN SODIUM 65155562679 No Longer Active Mitch Urbina DO Active COLCRYS 0.6 MG TABS 1 tab qid prn gout COLCHICINE 53238981217 Active Corey SEGURA Active SIMVASTATIN 40 MG TABS 1 tab daily at bedtime S IMVASTATIN 00762495841 Active Mitch Urbina DO Active SIMVASTATIN 20 MG TABS 1 tab daily at bedtime S IMVASTATIN 88714874676 No Longer Active Mitch Urbina DO Active LOVENOX 100 MG/ML SC SOLN One injection twice a day 09/15/15 ENOXAPARIN SODIUM 19611593830 No Longer Active Carmine Navarrete ctive JANUVIA 50 MG TABS Take one by mouth daily DIEGO GLIPTIN PHOSPHATE 11436352983 Active Corey Arias PA Active JANUVIA 100 MG TABS 1/2 by mouth every day DIEGO GLIPTIN PHOSPHATE 23769299998 No Longer Active Bijalseth Segal RN Active METFORMIN HCL 500 MG TABS 2 by mouth twice daily METFORMIN HCL 08191943880 Active Mitch Urbina DO Active GLIMEPIRIDE 4 MG TABS 1 tab po bid GLIMEPIRIDE 797406 09443 Active Mitch Urbina DO Active COLCRYS 0.6 MG TABS 1 po q 6 hours prn gout pain 03/02 COLCHICINE 24280669744 No Longer Active Camila Reese Active LISINOPRIL 5 MG TABS 1 by mouth every day LISIN OPRIL 46807916079 No Longer Active Nguyen Perez Active KLOR-CON 20 MEQ PACK Take one by mouth daily 8 POTASSIUM CHLORIDE 21816343229 No Longer Active Nguyen Perez Active FUROSEMIDE 40 MG TABS 1 by mouth daily FUROSEMI DE 69801438940 No Longer Active Nguyen Perez Active PROVIGIL 200 MG TABS 1/2 tab po q day MODAFINIL 84495 030219 Active Mitch Urbina DO Active PROVIGIL 100 MG TABS Take one by mouth daily MO DAFINIL 61863675461 No Longer Active Mitch Urbina DO Active BACTRIM DS 800-160 MG TAB 1 tab by mouth twice daily 2 TRIMETHOPRIM-SULFAMETHOXAZOLE 83266309580 No Longer Active Renan Hays MD Active FAMOTIDINE 20 MG TABS by mouth twice a day FAMOTI DINE 35986759284 Active Mitch Urbina DO Active ADULT ASPIRIN LOW STRENGTH 81 MG TBDP 1 by mouth every daily ASPIRIN 26014176523 Active Mitch Urbina DO Active METOPROLOL TARTRATE 50 MG TABS 1 by mouth twice daily METOPROLOL TARTRATE 35522518174 Active Mitch W Carlitos DO Active BACTRIM DS 800-160 MG TAB 1 tab by mouth twice daily 2 BACTRIM DS 800-160 MG TAB TRIMETHOPRIM-SULFAMETHOXAZOLE Inac tive PROVIGIL 100 MG TABS Take one by mouth daily 4 PROVIGIL 100 MG TABS 668116 MODAFINIL Inactive FUROSEMIDE 40 MG TABS 1 by mouth daily FU ROSEMIDE 40 MG TABS 968932 FUROSEMIDE Inactive KLOR-CON 20 MEQ PACK Take one by mouth daily 8 KLOR-CON 20 MEQ PACK 044819 POTASSIUM CHLORIDE Inactive LISINOPRIL 5 MG TABS 1 by mouth every day LISINOPRIL 5 MG TABS 187656 LISINOPRIL Inactive COLCRYS 0.6 MG TABS 1 po q 6 hours prn gout pain 03/02 COLCRYS 0.6 MG TABS COLCHICINE Inactive JANUVIA 100 MG TABS 1/2 by mouth every day JANUVI A 100 MG TABS SITAGLIPTIN PHOSPHATE Inactive SIMVASTATIN 20 MG TABS 1 tab daily at bedtime SIMVASTATIN 20 MG TABS 611866 SIMVASTATIN Inactive COUMADIN 6 MG TABS 1 by mouth every other day COUMADIN 6 MG TABS 170627 WARFARIN SODIUM Inactive COUMADIN 5 MG TABS 1 by mouth every other day COUMADIN 5 MG TABS 310530 WARFARIN SODIUM Inactive LISINOPRIL 20 MG TABS 1 tab po at HS KOKI NOPRIL 20 MG TABS 905967 LISINOPRIL Inactive LISINOPRIL-HYDROCHLOROTHIAZIDE 20-12.5 MG TABS 1 tab by mouth da rocky LISINOPRIL-HYDROCHLOROTHIAZIDE 20-12.5 MG TABS 961582 LISINOPRIL-HYDROCHLOROTHIAZIDE Inactive POLYTRIM 39071-1.1 UNIT/ML-% SOLN 1 drop in affected e ye every 3 hours while awake x 7 days POLYTRIM 09468-2.1 UNIT/ML-% SOLN 79384 7 POLYMYXIN B-TRIMETHOPRIM Inactive COUMADIN 4 MG TABS 1 tablet daily COUMADIN 4 MG TABS 176553 WARFARIN SODIUM Inactive CLONIDINE HCL 0.1 MG TABS 1 po bid 7 days, then 1/2 tab po b id 7 days CLONIDINE HCL 0.1 MG TABS 319944 CLONIDINE HCL I nactive ALLOPURINOL 300 MG TABS Take 1 tablet by mouth daily 2 ALLOPURINOL 300 MG TABS 041193 ALLOPURINOL Inactive MECLIZINE HCL 25 MG TAB 1 po tid 3 days, then 1/2 tab tid 3 days MECLIZINE HCL 25 MG TAB 560893 MECLIZINE HCL Inactive LOVENOX 100 MG/ML SC SOLN One injection twice a day 09/15/15 LOVENOX 100 MG/ML SC SOLN 835549 ENOXAPARIN SODIUM Inactive Vital Signs Date Name [...] Acid - Chemistry sodium, serum 136 mmol/L 594-470 9241/07/25 potassium, serum 4.6 mmol/L 3.5-5.2 chloride, serum [...] Panel - Chemistry sodium, serum 137 mmol/L 729-532 0325/11/14 potassium, serum 4.4 mmol/L 3.5-5.2 chloride, serum [...] 8.0 % 4.3-6.0 cholesterol, serum 130 mg/dL 993-854 0461/11/14 triglyceride, serum, fasting 288 mg/dL 30-200 HDL cholesterol, serum 33 mg/dL 32-96 LDL cholesterol, serum 39 mg/dL 0-130 Lab Report: Comp. Metabolic Panel, HGBA1 C, Lipid Panel, Prothrombin Time - Chemistry sodium, serum 136 mmol/L 365-676 0167/12/02 potassium, serum 4.4 mmol/L 3.5-5.2 chloride, serum [...] 7.6 % 4.3-6.0 cholesterol, serum 117 mg/dL 143-734 7402/12/02 triglyceride, serum, fasting 226 mg/dL 30-200 HDL [...] 1.0-3.5 Encounters Code Encounter Date Provider Facility CPT-64238 Level 3 Est. Patient 17:01:00 FINISHER HOT STRIP [facility] CPT-03837 Level 3 Est. Patient 13:53:19 FINISHER HOT STRIP [facility] CPT-15438 Level 3 Est. Patient 19:19:37 FINISHER HOT STRIP [facility] CPT-04565 Level 3 Est. Patient 13:25:53 FINISHER HOT STRIP Tavo toure MD [facility] CPT-98160 Level 3 Est. Patient 18:17:28 CDT [facility] CPT-56753 Level 3 Est. Patient 15:22:57 CDT Mitch [facility] L e[facility] CPT-03074 Level 3 Est. Patient 18:21:50 CDT Mitch [facility] L e[facility] CPT-86645 Level 3 Est. Patient 18:20:38 CDT Mitch [facility] CPT-11197 Level 3 Est. Patient 15:37:55 CDT [facility] CPT-63524 Level 2 Est. Patient 15:54:44 CDT Carmine benton MD [facility]-84048 Level 3 Est. Patient 21:46:01 FINISHER HOT STRIP [facility] CPT-45218 Level 3 Est. Patient 22:15:50 CDT [facility] CPT-61693 Level 3 Est. Patient 10:48:15 CDT [facility] CPT-75133 Level 3 Est. Patient 23:20:57 CDT Tavo toure MD [facility] CPT-96167 Level 3 Est. Patient 16:26:13 CDT [facility] Procedures Code Procedure Name Date Entry Date Standard Desc ription CPT-88448 Venipuncture Draw Fee 10:13:28 FINISHER [employer]IP CPT-55058 Venipuncture Draw Fee 08:31:11 CDT CPT-80878 Aspir/Inject Med Joint 18:17:28 CDT CPT-06045 Venipuncture Draw Fee 10:13:30 CDT CPT-53241 Venipuncture Draw Fee 08:31:43 FINISHER [employer] STRIP CPT-JTINJ Joint Injection 18:34:50 CDT CPT-19833 Knee 3V 12:25:09 CDT CPT-65965 Venipuncture Draw Fee 12:15:57 CDT CPT-060 Medical Surveillance Exam 21:31:43 CDT 2011 CPT-71137 Venipuncture Draw Fee 08:32:05 FINISHER HOT STRIP CPT-OV Office Visit 18:19:06 CDT
--- OUTSIDE RECORDS SUMMARY | 2020-01-18 13:09 | XMS REPORT | Clinical Summary ---
[...] TABS 1 tab qid prn gout COLCHICINE 23471141993 Active Kathie Juan RPT,RMA Active COUMADIN 1 MG TAB take 1 tab daily with 5mg tab. ( 6mg total ) 2015 WARFARIN SODIUM 06785665900 Active Domi Rivera MA Acti ve INVOKANA 100 MG ORAL TABS 1 tablet orally daily CANAGLIFLOZIN 03315716129 Active Kathie Juan RPT,RMA Active MINOXIDIL 2.5 MG TABS 1 tablet daily for high blood pressure 10/23 MINOXIDIL 08993175028 Active Mitch Urbina DO Active AMLODIPINE BESYLATE 5 MG TABS 1 tablet by mouth daily AMLODIPINE BESYLATE 11599143165 Active Domi Rivera MA Active MECLIZINE HCL 25 MG TAB 1 po tid 3 days, then 1/2 tab tid 3 days MECLIZINE HCL 74063538550 No Longer Active Corey SEGURA Active ALLOPURINOL 300 MG TABS Take 1 tablet by mouth daily 2 ALLOPURINOL 13674495173 No Longer Active Corey SEGURA Activ e CLONIDINE HCL 0.1 MG TABS 1 po bid 7 days, then 1/2 tab po b id 7 days CLONIDINE HCL 39970147541 No Longer Active Corey SEGURA Active COUMADIN 5 MG TABS 1 tab PO daily WARFARIN SODIUM 88473034407 Active Domi Rivera MA Active COUMADIN 4 MG TABS 1 tablet daily WARFARIN SODI UM 26060773421 No Longer Active Corey SEGURA Active POLYTRIM 96472-9.1 UNIT/ML-% SOLN 1 drop in affected e ye every 3 hours while awake x 7 days POLYMYXIN B-TRIMETHOPRIM 22731294128 N o Longer Active Corey SEGURA Active LOSARTAN POTASSIUM-HCTZ 100-12.5 MG TABS 1 by mouth da rocky for high blood pressure LOSARTAN POTASSIUM-HCTZ 25859135220 Active Domi Rivera MA Active LISINOPRIL-HYDROCHLOROTHIAZIDE 20-12.5 MG TABS 1 tab by mouth da rcoky LISINOPRIL-HYDROCHLOROTHIAZIDE 61659935097 No Longer Active Mitch luis DO Active LISINOPRIL 20 MG TABS 1 tab po at HS LISINOPRIL 38028863954 No Longer Active Mitch Urbina DO Active COUMADIN 5 MG TABS 1 by mouth every other day WARFARIN SODIUM 12245616191 No Longer Active Mitch Urbina DO Active COUMADIN 6 MG TABS 1 by mouth every other day WARFARIN SODIUM 91905025230 No Longer Active Mitch Urbina DO Active SIMVASTATIN 40 MG TABS 1 tab daily at bedtime S IMVASTATIN 53661564543 Active Domi Rivera MA Active SIMVASTATIN 20 MG TABS 1 tab daily at bedtime S IMVASTATIN 34394321741 No Longer Active Mitch Urbina DO Active LOVENOX 100 MG/ML SC SOLN One injection twice a day 09/15/15 ENOXAPARIN SODIUM 53343287253 No Longer Active Carmine Navarrete ctive JANUVIA 50 MG TABS Take one by mouth daily DIEGO GLIPTIN PHOSPHATE 27514179425 Active Domi Rivera MA Active JANUVIA 100 MG TABS 1/2 by mouth every day DIEGO GLIPTIN PHOSPHATE 08346894617 No Longer Active Bijal Segal RN Active METFORMIN HCL 500 MG TABS 2 by mouth twice daily METFORMIN HCL 66643690927 Active Mitch Urbina DO Active GLIMEPIRIDE 4 MG TABS 1 tab po bid GLIMEPIRIDE 621520 28755 Active Mitch Urbina DO Active COLCRYS 0.6 MG TABS 1 po q 6 hours prn gout pain 03/02 COLCHICINE 79495720982 No Longer Active Camila Reese Active LISINOPRIL 5 MG TABS 1 by mouth every day LISIN OPRIL 96438401250 No Longer Active Nguyenmolly Perez Active KLOR-CON 20 MEQ PACK Take one by mouth daily 8 POTASSIUM CHLORIDE 32071416741 No Longer Active Nguyenmolly Perez Active FUROSEMIDE 40 MG TABS 1 by mouth daily FUROSEMI DE 41823392152 No Longer Active Nguyenmolly Perez Active PROVIGIL 200 MG TABS 1/2 tab po q day MODAFINIL 04129 492346 Active Domi Rivera MA Active PROVIGIL 100 MG TABS Take one by mouth daily MO DAFINIL 75881241816 No Longer Active Mitch Urbina DO Active BACTRIM DS 800-160 MG TAB 1 tab by mouth twice daily 2 TRIMETHOPRIM-SULFAMETHOXAZOLE 98468824855 No Longer Active Renan Hays MD Active FAMOTIDINE 20 MG TABS by mouth twice a day FAMOTI DINE 16103593330 Active Mitch Urbina DO Active ADULT ASPIRIN LOW STRENGTH 81 MG TBDP 1 by mouth every daily ASPIRIN 52611509128 Active Mitch Urbina DO Active METOPROLOL TARTRATE 50 MG TABS 1 by mouth twice daily METOPROLOL TARTRATE 45700581011 Active Domi Rivera MA Active BACTRIM DS 800-160 MG TAB 1 tab by mouth twice daily 2 BACTRIM DS 800-160 MG TAB 159820 TRIMETHOPRIM-SULFAMETHOXAZOLE Inac tive PROVIGIL 100 MG TABS Take one by mouth daily 4 PROVIGIL 100 MG TABS 903353 MODAFINIL Inactive FUROSEMIDE 40 MG TABS 1 by mouth daily FU ROSEMIDE 40 MG TABS 403096 FUROSEMIDE Inactive KLOR-CON 20 MEQ PACK Take one by mouth daily 8 KLOR-CON 20 MEQ PACK 374142 POTASSIUM CHLORIDE Inactive LISINOPRIL 5 MG TABS 1 by mouth every day LISINOPRIL 5 MG TABS 597010 LISINOPRIL Inactive COLCRYS 0.6 MG TABS 1 po q 6 hours prn gout pain 03/02 COLCRYS 0.6 MG TABS 680201 COLCHICINE Inactive JANUVIA 100 MG TABS 1/2 by mouth every day JANUVI A 100 MG TABS SITAGLIPTIN PHOSPHATE Inactive SIMVASTATIN 20 MG TABS 1 tab daily at bedtime SIMVASTATIN 20 MG TABS 817798 SIMVASTATIN Inactive COUMADIN 6 MG TABS 1 by mouth every other day COUMADIN 6 MG TABS 174935 WARFARIN SODIUM Inactive COUMADIN 5 MG TABS 1 by mouth every other day COUMADIN 5 MG TABS 092413 WARFARIN SODIUM Inactive LISINOPRIL 20 MG TABS 1 tab po at HS KOKI NOPRIL 20 MG TABS 066631 LISINOPRIL Inactive LISINOPRIL-HYDROCHLOROTHIAZIDE 20-12.5 MG TABS 1 tab by mouth da rocky LISINOPRIL-HYDROCHLOROTHIAZIDE 20-12.5 MG TABS 953454 LISINOPRIL-HYDROCHLOROTHIAZIDE Inactive POLYTRIM 52994-3.1 UNIT/ML-% SOLN 1 drop in affected e ye every 3 hours while awake x 7 days POLYTRIM 37851-4.1 UNIT/ML-% SOLN 92040 7 POLYMYXIN B-TRIMETHOPRIM Inactive COUMADIN 4 MG TABS 1 tablet daily COUMADIN 4 MG TABS 064575 WARFARIN SODIUM Inactive CLONIDINE HCL 0.1 MG TABS 1 po bid 7 days, then 1/2 tab po b id 7 days CLONIDINE HCL 0.1 MG TABS 929722 CLONIDINE HCL I nactive ALLOPURINOL 300 MG TABS Take 1 tablet by mouth daily 2 ALLOPURINOL 300 MG TABS 752640 ALLOPURINOL Inactive MECLIZINE HCL 25 MG TAB 1 po tid 3 days, then 1/2 tab tid 3 days MECLIZINE HCL 25 MG TAB 031186 MECLIZINE HCL Inactive LOVENOX 100 MG/ML SC SOLN One injection twice a day 09/15/15 LOVENOX 100 MG/ML SC SOLN 457862 ENOXAPARIN SODIUM Inactive Vital Signs Date Name [...] - Chem istry sodium, serum 136 mmol/L 398-632 1342/01/14 carbon dioxide, venous blood 25.4 mmol/L 21.0-32 [...] 1.0-3.5 Encounters Code Encounter Date Provider Facility CPT-59167 Level 3 Est. Patient 09:34:30 DEPARTMENT DIRECTOR Mitch luis DO [facility] CPT-66650 Level 3 Est. Patient 09:37:15 CDT Mitch luis DO [facility] CPT-02642 Level 3 Est. Patient 17:01:00 DEPARTMENT DIRECTOR Mitch luis DO [facility] CPT-54261 Level 3 Est. Patient 13:53:19 DEPARTMENT DIRECTOR Mitch luis [facility] CPT-88358 Level 3 Est. Patient 19:19:37 DEPARTMENT DIRECTOR Mitch luis [facility] CPT-06738 Level 3 Est. Patient 13:25:53 DEPARTMENT DIRECTOR Tavo toure MD [facility] CPT-52214 Level 3 Est. Patient 18:17:28 CDT Mitch luis [facility] CPT-79831 Level 3 Est. Patient 15:22:57 CDT Mitch luis [facility] CPT-46317 Level 3 Est. Patient 18:21:50 CDT Mitch luis [facility] CPT-95667 Level 3 Est. Patient 18:20:38 CDT Mitch luis [facility] CPT-50026 Level 3 Est. Patient 15:37:55 CDT Mitch luis [facility] CPT-20426 Level 2 Est. Patient 15:54:44 CDT Carmine benton MD [facility] CPT-39404 Level 3 Est. Patient 21:46:01 DEPARTMENT DIRECTOR Mitch luis [facility] CPT-77675 Level 3 Est. Patient 22:15:50 CDT Mitch luis [facility] CPT-17597 Level 3 Est. Patient 10:48:15 CDT Mitch luis [facility] CPT-51628 Level 3 Est. Patient 23:20:57 CDT Tavo toure MD [facility] CPT-40852 Level 3 Est. Patient 16:26:13 CDT Mitch Arnol luis [facility] Procedures Code Procedure Name Date Entry Date Standard Desc ription CPT-94349 Venipuncture Draw Fee 08:32:21 DEPARTMENT DIRECTOR CPT-97854 Venipuncture Draw Fee 09:38:56 DEPARTMENT DIRECTOR CPT-46650 No Charge Offi Visit 21:36:07 CDT 1 CPT-41878 Venipuncture Draw Fee 10:13:28 DEPARTMENT DIRECTOR CPT-21488 Venipuncture Draw Fee 08:31:11 CDT CPT-06724 Aspir/Inject Med Joint 18:17:28 CDT CPT-08419 Venipuncture Draw Fee 10:13:30 CDT CPT-02784 Venipuncture Draw Fee 08:31:43 DEPARTMENT DIRECTOR CPT-JTINJ Joint Injection 18:34:50 CDT CPT-66371 Knee 3V 12:25:09 CDT CPT-48340 Venipuncture Draw Fee 12:15:57 CDT CPT-060 Medical Surveillance Exam 21:31:43 CDT 2011 CPT-85847 Venipuncture Draw Fee 08:32:05 DEPARTMENT DIRECTOR CPT-OV Office Visit 18:19:06 CDT
--- OUTSIDE RECORDS SUMMARY | 2020-01-18 13:09 | XMS REPORT | Clinical Summary ---
[...] Coronary atherosclerosis of unspecified type of vessel, saxman or graft EDEMA 782.3 Resolved Mitch Urbina [...] TABS 1 tab qid prn gout COLCHICINE 23379744171 Active Kathie Juan RPT,RMA Active COUMADIN 1 MG TAB take 1 tab daily with 5mg tab. ( 6mg total ) 2015 WARFARIN SODIUM 33939934655 Active Domi Rivera MA Acti ve INVOKANA 100 MG ORAL TABS 1 tablet orally daily CANAGLIFLOZIN 75115213696 Active Kathie Juan RPT,RMA Active MINOXIDIL 2.5 MG TABS 1 tablet daily for high blood pressure 10/23 MINOXIDIL 82926886193 Active Mitch Urbina DO Active AMLODIPINE BESYLATE 5 MG TABS 1 tablet by mouth daily AMLODIPINE BESYLATE 81557605133 Active Domi Rivera MA Active MECLIZINE HCL 25 MG TAB 1 po tid 3 days, then 1/2 tab tid 3 days MECLIZINE HCL 74891024367 No Longer Active Corey SEGURA Active ALLOPURINOL 300 MG TABS Take 1 tablet by mouth daily 2 ALLOPURINOL 84395485131 No Longer Active Corey SEGURA Activ e CLONIDINE HCL 0.1 MG TABS 1 po bid 7 days, then 1/2 tab po b id 7 days CLONIDINE HCL 97098299590 No Longer Active Corey SEGURA Active COUMADIN 5 MG TABS 1 tab PO daily WARFARIN SODIUM 10402702321 Active Domi Rivera MA Active COUMADIN 4 MG TABS 1 tablet daily WARFARIN SODI UM 91665980577 No Longer Active Corey SEGURA Active POLYTRIM 92616-9.1 UNIT/ML-% SOLN 1 drop in affected e ye every 3 hours while awake x 7 days POLYMYXIN B-TRIMETHOPRIM 32074598826 N o Longer Active Corey SEGURA Active LOSARTAN POTASSIUM-HCTZ 100-12.5 MG TABS 1 by mouth da rocky for high blood pressure LOSARTAN POTASSIUM-HCTZ 66752411768 Active Domi Rivera MA Active LISINOPRIL-HYDROCHLOROTHIAZIDE 20-12.5 MG TABS 1 tab by mouth da rocky LISINOPRIL-HYDROCHLOROTHIAZIDE 16626549790 No Longer Active Mitch luis DO Active LISINOPRIL 20 MG TABS 1 tab po at HS LISINOPRIL 76434154293 No Longer Active Mitch Urbina DO Active COUMADIN 5 MG TABS 1 by mouth every other day WARFARIN SODIUM 11673871835 No Longer Active Mitch Urbina DO Active COUMADIN 6 MG TABS 1 by mouth every other day WARFARIN SODIUM 67471082220 No Longer Active Mitch Urbina DO Active SIMVASTATIN 40 MG TABS 1 tab daily at bedtime S IMVASTATIN 92130489993 Active Domi Rivera MA Active SIMVASTATIN 20 MG TABS 1 tab daily at bedtime S IMVASTATIN 99478707431 No Longer Active Mitch Urbina DO Active LOVENOX 100 MG/ML SC SOLN One injection twice a day 09/15/15 ENOXAPARIN SODIUM 53489599737 No Longer Active Carmine Navarrete ctive JANUVIA 50 MG TABS Take one by mouth daily DIEGO GLIPTIN PHOSPHATE 69709304629 Active Domi Rivera MA Active JANUVIA 100 MG TABS 1/2 by mouth every day DIEGO GLIPTIN PHOSPHATE 77358466507 No Longer Active Bijal Segal RN Active METFORMIN HCL 500 MG TABS 2 by mouth twice daily METFORMIN HCL 41428007378 Active Kathie Juan RPT,RMA Active GLIMEPIRIDE 4 MG TABS 1 tab po bid GLIMEPIRIDE 024824 41177 Active Kathie Juan RPT,RMA Active COLCRYS 0.6 MG TABS 1 po q 6 hours prn gout pain 03/02 COLCHICINE 98908334660 No Longer Active Camila Reese Active LISINOPRIL 5 MG TABS 1 by mouth every day LISIN OPRIL 78568763434 No Longer Active Nguyen Perez Active KLOR-CON 20 MEQ PACK Take one by mouth daily 8 POTASSIUM CHLORIDE 78779550169 No Longer Active Nguyen Perez Active FUROSEMIDE 40 MG TABS 1 by mouth daily FUROSEMI DE 65056493259 No Longer Active Nguyen Perez Active PROVIGIL 200 MG TABS 1/2 tab po q day MODAFINIL 13362 134700 Active Domi Rivera MA Active PROVIGIL 100 MG TABS Take one by mouth daily MO DAFINIL 49695033131 No Longer Active Mitch Urbina DO Active BACTRIM DS 800-160 MG TAB 1 tab by mouth twice daily 2 TRIMETHOPRIM-SULFAMETHOXAZOLE 12131341276 No Longer Active Renan Hays MD Active FAMOTIDINE 20 MG TABS by mouth twice a day FAMOTI DINE 68892248761 Active Mitch Urbina DO Active ADULT ASPIRIN LOW STRENGTH 81 MG TBDP 1 by mouth every daily ASPIRIN 33859746861 Active Mitch Urbina DO Active METOPROLOL TARTRATE 50 MG TABS 1 by mouth twice daily METOPROLOL TARTRATE 61578943601 Active Domi Rivera MA Active BACTRIM DS 800-160 MG TAB 1 tab by mouth twice daily 2 BACTRIM DS 800-160 MG TAB 185617 TRIMETHOPRIM-SULFAMETHOXAZOLE Inac tive PROVIGIL 100 MG TABS Take one by mouth daily 4 PROVIGIL 100 MG TABS 572506 MODAFINIL Inactive FUROSEMIDE 40 MG TABS 1 by mouth daily FU ROSEMIDE 40 MG TABS 428171 FUROSEMIDE Inactive KLOR-CON 20 MEQ PACK Take one by mouth daily 8 KLOR-CON 20 MEQ PACK 763178 POTASSIUM CHLORIDE Inactive LISINOPRIL 5 MG TABS 1 by mouth every day LISINOPRIL 5 MG TABS 873097 LISINOPRIL Inactive COLCRYS 0.6 MG TABS 1 po q 6 hours prn gout pain 03/02 COLCRYS 0.6 MG TABS 130766 COLCHICINE Inactive JANUVIA 100 MG TABS 1/2 by mouth every day JANUVI A 100 MG TABS SITAGLIPTIN PHOSPHATE Inactive SIMVASTATIN 20 MG TABS 1 tab daily at bedtime SIMVASTATIN 20 MG TABS 200830 SIMVASTATIN Inactive COUMADIN 6 MG TABS 1 by mouth every other day COUMADIN 6 MG TABS 724572 WARFARIN SODIUM Inactive COUMADIN 5 MG TABS 1 by mouth every other day COUMADIN 5 MG TABS 733238 WARFARIN SODIUM Inactive LISINOPRIL 20 MG TABS 1 tab po at HS KOKI NOPRIL 20 MG TABS 610166 LISINOPRIL Inactive LISINOPRIL-HYDROCHLOROTHIAZIDE 20-12.5 MG TABS 1 tab by mouth da rocky LISINOPRIL-HYDROCHLOROTHIAZIDE 20-12.5 MG TABS 041649 LISINOPRIL-HYDROCHLOROTHIAZIDE Inactive POLYTRIM 70431-9.1 UNIT/ML-% SOLN 1 drop in affected e ye every 3 hours while awake x 7 days POLYTRIM 85193-1.1 UNIT/ML-% SOLN 33118 7 POLYMYXIN B-TRIMETHOPRIM Inactive COUMADIN 4 MG TABS 1 tablet daily COUMADIN 4 MG TABS 184687 WARFARIN SODIUM Inactive CLONIDINE HCL 0.1 MG TABS 1 po bid 7 days, then 1/2 tab po b id 7 days CLONIDINE HCL 0.1 MG TABS 932958 CLONIDINE HCL I nactive ALLOPURINOL 300 MG TABS Take 1 tablet by mouth daily 2 ALLOPURINOL 300 MG TABS 746328 ALLOPURINOL Inactive MECLIZINE HCL 25 MG TAB 1 po tid 3 days, then 1/2 tab tid 3 days MECLIZINE HCL 25 MG TAB 417408 MECLIZINE HCL Inactive LOVENOX 100 MG/ML SC SOLN One injection twice a day 09/15/15 LOVENOX 100 MG/ML SC SOLN 810070 ENOXAPARIN SODIUM Inactive Vital Signs Date Name [...] Description Chart Maintenance: Hemoccult [place] [facility] - Chemistry occult blood, stool (E&M) Positive [...] - Chem istry sodium, serum 136 mmol/L 257-306 2874/01/14 carbon dioxide, venous blood 25.4 mmol/L 21.0-32 [...] 1.0-3.5 Encounters Code Encounter Date Provider Facility CPT-58733 Level 3 Est. Patient 09:34:30 PAPER PATTERN FOLDER Mitch luis [facility] CPT-82389 Level 3 Est. Patient 09:37:15 CDT Mitch luis [facility] CPT-06413 Level 3 Est. Patient 17:01:00 PAPER PATTERN FOLDER Mitch Arnol luis [facility] CPT-27642 Level 3 Est. Patient 13:53:19 PAPER PATTERN FOLDER Mitch Arnol luis [facility] CPT-66221 Level 3 Est. Patient 19:19:37 PAPER PATTERN FOLDER Mitch luis [facility] CPT-83661 Level 3 Est. Patient 13:25:53 PAPER PATTERN FOLDER Tavo toure MD [facility]-53154 Level 3 Est. Patient 18:17:28 CDT Mitch Arnol luis [facility] CPT-87324 Level 3 Est. Patient 15:22:57 CDT Mitch Arnol luis [facility] CPT-48998 Level 3 Est. Patient 18:21:50 CDT Mitch Arnol luis [facility] CPT-16299 Level 3 Est. Patient 18:20:38 CDT Mitch Arnol L janelle [facility] CPT-05943 Level 3 Est. Patient 15:37:55 CDT Mitch Arnol L janelle [facility] CPT-75420 Level 2 Est. Patient 15:54:44 CDT Carmine benton MD [facility]-09179 Level 3 Est. Patient 21:46:01 PAPER PATTERN FOLDER Mitch Ambrose Nona luis [facility] CPT-84606 Level 3 Est. Patient 22:15:50 CDT Mitch Arnol Castellano janelle [facility] CPT-79881 Level 3 Est. Patient 10:48:15 CDT Mitch Arnol luis [facility] CPT-43791 Level 3 Est. Patient 23:20:57 CDT Tavo toure MD [facility] CPT-41474 Level 3 Est. Patient 16:26:13 CDT Mitch luis [facility] Procedures Code Procedure Name Date Entry Date Standard Desc ription CPT-19273 Venipuncture Draw Fee 08:32:21 PAPER PATTERN FOLDER CPT-86381 Venipuncture Draw Fee 09:38:56 PAPER PATTERN FOLDER CPT-97894 No Charge Offi Visit 21:36:07 CDT 1 CPT-78962 Venipuncture Draw Fee 10:13:28 PAPER PATTERN FOLDER CPT-84974 Venipuncture Draw Fee 08:31:11 CDT CPT-10909 Aspir/Inject Med Joint 18:17:28 CDT CPT-80009 Venipuncture Draw Fee 10:13:30 CDT CPT-95664 Venipuncture Draw Fee 08:31:43 PAPER PATTERN FOLDER CPT-JTINJ Joint Injection 18:34:50 CDT CPT-26189 Knee 3V 12:25:09 CDT CPT-41089 Venipuncture Draw Fee 12:15:57 CDT CPT-060 Medical Surveillance Exam 21:31:43 CDT 2011 CPT-05069 Venipuncture Draw Fee 08:32:05 PAPER PATTERN FOLDER CPT-OV Office Visit 18:19:06 CDT
--- OUTSIDE RECORDS SUMMARY | 2020-01-18 13:09 | XMS REPORT | Clinical Summary ---
[...] atherosclerosis of unspecified type of vessel, [place] or graft EDEMA 782.3 Resolved Mitch [...] Mitch Urbina DO Cellulitis ICD-682.9 Inactive Mitch Ubrina DO 10/23 Medication List Medication Instructions Start Date Stop Date Generic Name NDC Status Provider Patient Instruction INVOKANA 100 MG ORAL TABS 1 tablet orally daily CANAGLIFLOZIN 80492938130 Active Kathie Juan RPT,RMA Active MINOXIDIL 2.5 MG TABS 1 tablet daily for high blood pressure 10/23 MINOXIDIL 30647822923 Active Mitch Arnol Carlitos DO Active AMLODIPINE BESYLATE 5 MG TABS 1 tablet by mouth daily AMLODIPINE BESYLATE 10831961061 Active Domi Rivera MA Active MECLIZINE HCL 25 MG TAB 1 po tid 3 days, then 1/2 tab tid 3 days MECLIZINE HCL 20047786263 No Longer Active Corey SEGURA Active ALLOPURINOL 300 MG TABS Take 1 tablet by mouth daily 2 ALLOPURINOL 20643898637 No Longer Active Corey SEGURA Activ e CLONIDINE HCL 0.1 MG TABS 1 po bid 7 days, then 1/2 tab po b id 7 days CLONIDINE HCL 07613782628 No Longer Active Corey SEGURA Active COUMADIN 5 MG TABS 1 tab PO daily WARFARIN SODIUM 37824306092 Active Mitch Urbina DO Active COUMADIN 4 MG TABS 1 tablet daily WARFARIN SODI UM 33199663642 No Longer Active Corey SEGURA Active POLYTRIM 72586-6.1 UNIT/ML-% SOLN 1 drop in affected e ye every 3 hours while awake x 7 days POLYMYXIN B-TRIMETHOPRIM 20210675961 N o Longer Active Corey SEGURA Active LOSARTAN POTASSIUM-HCTZ 100-12.5 MG TABS 1 by mouth da rocky for high blood pressure LOSARTAN POTASSIUM-HCTZ 95934794733 Active Stephy Urbina DO Active LISINOPRIL-HYDROCHLOROTHIAZIDE 20-12.5 MG TABS 1 tab by mouth da rocky LISINOPRIL-HYDROCHLOROTHIAZIDE 47617640665 No Longer Active Mitch luis DO Active LISINOPRIL 20 MG TABS 1 tab po at HS LISINOPRIL 15050120317 No Longer Active Mitch Urbina DO Active COUMADIN 5 MG TABS 1 by mouth every other day WARFARIN SODIUM 28885757792 No Longer Active Mitch Urbina DO Active COUMADIN 6 MG TABS 1 by mouth every other day WARFARIN SODIUM 85774064493 No Longer Active Mitch Urbina DO Active COLCRYS 0.6 MG TABS 1 tab qid prn gout COLCHICINE 47123182506 Active Corey SEGURA Active SIMVASTATIN 40 MG TABS 1 tab daily at bedtime S IMVASTATIN 06733464165 Active Domi Rivera MA Active SIMVASTATIN 20 MG TABS 1 tab daily at bedtime S IMVASTATIN 82485745105 No Longer Active Mitch Urbina DO Active LOVENOX 100 MG/ML SC SOLN One injection twice a day 09/15/15 ENOXAPARIN SODIUM 52448354452 No Longer Active Carmine Navarrete ctive JANUVIA 50 MG TABS Take one by mouth daily DIEGO GLIPTIN PHOSPHATE 89028119858 Active Kathie Juan RPT,RMA Active JANUVIA 100 MG TABS 1/2 by mouth every day DIEGO GLIPTIN PHOSPHATE 60721278019 No Longer Active Bijal Segal RN Active METFORMIN HCL 500 MG TABS 2 by mouth twice daily METFORMIN HCL 10858045265 Active Mitch Urbina DO Active GLIMEPIRIDE 4 MG TABS 1 tab po bid GLIMEPIRIDE 777112 03162 Active Mitch Urbina DO Active COLCRYS 0.6 MG TABS 1 po q 6 hours prn gout pain 03/02 COLCHICINE 18830942062 No Longer Active Camila Reese Active LISINOPRIL 5 MG TABS 1 by mouth every day LISIN OPRIL 89765910850 No Longer Active Nguyenmolly Perez Active KLOR-CON 20 MEQ PACK Take one by mouth daily 8 POTASSIUM CHLORIDE 54028987950 No Longer Active Nguyenmolly Perez Active FUROSEMIDE 40 MG TABS 1 by mouth daily FUROSEMI DE 16111264278 No Longer Active Nguyen Perez Active PROVIGIL 200 MG TABS 1/2 tab po q day MODAFINIL 34918 317994 Active Kathie Juan RPT,RMA Active PROVIGIL 100 MG TABS Take one by mouth daily MO DAFINIL 66922243735 No Longer Active Mitch Urbina DO Active BACTRIM DS 800-160 MG TAB 1 tab by mouth twice daily 2 TRIMETHOPRIM-SULFAMETHOXAZOLE 50716431806 No Longer Active Renan Hays MD Active FAMOTIDINE 20 MG TABS by mouth twice a day FAMOTI DINE 04491953217 Active Mitch Urbina DO Active ADULT ASPIRIN LOW STRENGTH 81 MG TBDP 1 by mouth every daily ASPIRIN 74980286323 Active Mitch Urbina DO Active METOPROLOL TARTRATE 50 MG TABS 1 by mouth twice daily METOPROLOL TARTRATE 01101158151 Active Kathie Juan RPT,RMA Acti ve BACTRIM DS 800-160 MG TAB 1 tab by mouth twice daily 2 BACTRIM DS 800-160 MG TAB 921560 TRIMETHOPRIM-SULFAMETHOXAZOLE Inac tive PROVIGIL 100 MG TABS Take one by mouth daily 4 PROVIGIL 100 MG TABS 269493 MODAFINIL Inactive FUROSEMIDE 40 MG TABS 1 by mouth daily FU ROSEMIDE 40 MG TABS 280689 FUROSEMIDE Inactive KLOR-CON 20 MEQ PACK Take one by mouth daily 8 KLOR-CON 20 MEQ PACK 539493 POTASSIUM CHLORIDE Inactive LISINOPRIL 5 MG TABS 1 by mouth every day LISINOPRIL 5 MG TABS 482369 LISINOPRIL Inactive COLCRYS 0.6 MG TABS 1 po q 6 hours prn gout pain 03/02 COLCRYS 0.6 MG TABS 070062 COLCHICINE Inactive JANUVIA 100 MG TABS 1/2 by mouth every day JANUVI A 100 MG TABS SITAGLIPTIN PHOSPHATE Inactive SIMVASTATIN 20 MG TABS 1 tab daily at bedtime SIMVASTATIN 20 MG TABS 464152 SIMVASTATIN Inactive COUMADIN 6 MG TABS 1 by mouth every other day COUMADIN 6 MG TABS 883418 WARFARIN SODIUM Inactive COUMADIN 5 MG TABS 1 by mouth every other day COUMADIN 5 MG TABS 475009 WARFARIN SODIUM Inactive LISINOPRIL 20 MG TABS 1 tab po at HS KOKI NOPRIL 20 MG TABS 013942 LISINOPRIL Inactive LISINOPRIL-HYDROCHLOROTHIAZIDE 20-12.5 MG TABS 1 tab by mouth da rocky LISINOPRIL-HYDROCHLOROTHIAZIDE 20-12.5 MG TABS 962208 LISINOPRIL-HYDROCHLOROTHIAZIDE Inactive POLYTRIM 65307-9.1 UNIT/ML-% SOLN 1 drop in affected e ye every 3 hours while awake x 7 days POLYTRIM 76644-1.1 UNIT/ML-% SOLN 88882 7 POLYMYXIN B-TRIMETHOPRIM Inactive COUMADIN 4 MG TABS 1 tablet daily COUMADIN 4 MG TABS 576488 WARFARIN SODIUM Inactive CLONIDINE HCL 0.1 MG TABS 1 po bid 7 days, then 1/2 tab po b id 7 days CLONIDINE HCL 0.1 MG TABS 339639 CLONIDINE HCL I nactive ALLOPURINOL 300 MG TABS Take 1 tablet by mouth daily 2 ALLOPURINOL 300 MG TABS 775631 ALLOPURINOL Inactive MECLIZINE HCL 25 MG TAB 1 po tid 3 days, then 1/2 tab tid 3 days MECLIZINE HCL 25 MG TAB 335887 MECLIZINE HCL Inactive LOVENOX 100 MG/ML SC SOLN One injection twice a day 09/15/15 LOVENOX 100 MG/ML SC SOLN 439647 ENOXAPARIN SODIUM Inactive Vital Signs Date Name [...] Ag - Chemistry sodium, serum 141 mmol/L 617-918 3050/07/06 potassium, serum 4.4 mmol/L 3.5-5.2 chloride, serum [...] - Chem istry sodium, serum 136 mmol/L 884-466 5940/01/14 carbon dioxide, venous blood 25.4 mmol/L 21.0-32 [...] 7.0 % 4.3-6.0 cholesterol, serum 120 mg/dL 608-717 0598/07/06 triglyceride, serum, fasting 186 mg/dL 30-200 HDL [...] 1.0-3.5 Encounters Code Encounter Date Provider Facility CPT-10742 Level 3 Est. Patient 09:34:30 PRE K LEAD TEACHER Mitch W L ee DO [facility] CPT-59998 Level 3 Est. Patient 09:37:15 CDT Mitch W L ee DO [facility] CPT-83966 Level 3 Est. Patient 17:01:00 PRE K LEAD TEACHER Mitch W L ee DO [facility] CPT-26562 Level 3 Est. Patient 13:53:19 PRE K LEAD TEACHER Mitch W L janelle [facility] CPT-20204 Level 3 Est. Patient 19:19:37 PRE K LEAD TEACHER Mitch W L ee [facility] CPT-68073 Level 3 Est. Patient 13:25:53 PRE K LEAD TEACHER Tavo toure MD [facility]-93314 Level 3 Est. Patient 18:17:28 CDT Mitch W L ee [facility] CPT-69215 Level 3 Est. Patient 15:22:57 CDT Mitch W L ee [facility] CPT-42635 Level 3 Est. Patient 18:21:50 CDT Mitch W L janelle [facility] CPT-47842 Level 3 Est. Patient 18:20:38 CDT Mitch W L ee [facility] CPT-90513 Level 3 Est. Patient 15:37:55 CDT Mitch W L janelle [facility] CPT-85615 Level 2 Est. Patient 15:54:44 CDT Carmine benton MD [facility]-55286 Level 3 Est. Patient 21:46:01 PRE K LEAD TEACHER Mitch W L janelle [facility] CPT-50195 Level 3 Est. Patient 22:15:50 CDT Mitch W L ee [facility] CPT-15971 Level 3 Est. Patient 10:48:15 CDT Mitch W L ee [facility] CPT-68402 Level 3 Est. Patient 23:20:57 CDT Tavo toure MD [facility] CPT-74491 Level 3 Est. Patient 16:26:13 CDT Mitch luis DO [facility] Procedures Code Procedure Name Date Entry Date Standard Desc ription CPT-88400 Venipuncture Draw Fee 09:38:56 PRE K LEAD TEACHER CPT-39290 No Charge Offi Visit 21:36:07 CDT 1 CPT-38918 Venipuncture Draw Fee 10:13:28 PRE K LEAD TEACHER CPT-24984 Venipuncture Draw Fee 08:31:11 CDT CPT-43938 Aspir/Inject Med Joint 18:17:28 CDT CPT-30109 Venipuncture Draw Fee 10:13:30 CDT CPT-21982 Venipuncture Draw Fee 08:31:43 PRE K LEAD TEACHER CPT-JTINJ Joint Injection 18:34:50 CDT CPT-67717 Knee 3V 12:25:09 CDT CPT-53053 Venipuncture Draw Fee 12:15:57 CDT CPT-060 Medical Surveillance Exam 21:31:43 CDT 2011 CPT-33369 Venipuncture Draw Fee 08:32:05 PRE K LEAD TEACHER CPT-OV Office Visit 18:19:06 CDT
--- OUTSIDE RECORDS SUMMARY | 2020-01-18 13:09 | XMS REPORT | Clinical Summary ---
Author Author Admin, Mitch Leon Organization [facility] Address Unknown Phone Unavailable [...] of unspecified type of vessel, [place] or graft EDEMA 782.3 Resolved Mitch Urbina [...] 1 hour if symptoms persist. COLCHICINE 59 522081952 Active Mitch Urbina DO Active COUMADIN 1 MG TAB 2 tabs orally daily with the 5mg tab to equal 7mg daily WARFARIN SODIUM 63421820138 Active Norma Cazares Active COLCRYS 0.6 MG TABS 1 tab qid prn gout COLCHICINE 25545403646 Active Norma Cazares Active INVOKANA 100 MG ORAL TABS 1 tablet orally daily CANAGLIFLOZIN 78422609189 Active Mitch Urbina DO Active MINOXIDIL 2.5 MG TABS 1 tablet daily for high blood pressure 10/23 MINOXIDIL 46902674895 Active Domi Rivera MA Active AMLODIPINE BESYLATE 5 MG TABS 1 tablet by mouth daily AMLODIPINE BESYLATE 83273723414 Active Mitch Urbina DO Active MECLIZINE HCL 25 MG TAB 1 po tid 3 days, then 1/2 tab tid 3 days MECLIZINE HCL 83469516941 No Longer Active Corey SEGURA Active ALLOPURINOL 300 MG TABS Take 1 tablet by mouth daily 2 ALLOPURINOL 65071265590 No Longer Active Corey SEGURA Activ e CLONIDINE HCL 0.1 MG TABS 1 po bid 7 days, then 1/2 tab po b id 7 days CLONIDINE HCL 46951127297 No Longer Active Corey SEGURA Active COUMADIN 5 MG TABS 1 tab PO daily WARFARIN SODIUM 14244270945 Active Mitch Urbina DO Active COUMADIN 4 MG TABS 1 tablet daily WARFARIN SODI UM 39540366013 No Longer Active Corey SEGURA Active POLYTRIM 68842-2.1 UNIT/ML-% SOLN 1 drop in affected e ye every 3 hours while awake x 7 days POLYMYXIN B-TRIMETHOPRIM 65749275424 N o Longer Active Corey SEGURA Active LOSARTAN POTASSIUM-HCTZ 100-12.5 MG TABS 1 by mouth [place] for high blood pressure LOSARTAN POTASSIUM-HCTZ 28673393390 Active Stephy Urbina DO Active LISINOPRIL-HYDROCHLOROTHIAZIDE 20-12.5 MG TABS 1 tab by mouth da rocky LISINOPRIL-HYDROCHLOROTHIAZIDE 01120493667 No Longer Active Mitch luis DO Active LISINOPRIL 20 MG TABS 1 tab po at HS LISINOPRIL 83015799075 No Longer Active Mitch Urbina DO Active COUMADIN 5 MG TABS 1 by mouth every other day WARFARIN SODIUM 60417943866 No Longer Active Mitch Urbina DO Active COUMADIN 6 MG TABS 1 by mouth every other day WARFARIN SODIUM 84564474652 No Longer Active Mitch Urbina DO Active SIMVASTATIN 40 MG TABS 1 tab daily at bedtime S IMVASTATIN 14966508682 Active Mitch Urbina DO Active SIMVASTATIN 20 MG TABS 1 tab daily at bedtime S IMVASTATIN 75477238620 No Longer Active Mitch Urbina DO Active LOVENOX 100 MG/ML SC SOLN One injection twice a day 09/15/15 ENOXAPARIN SODIUM 03631448813 No Longer Active Carmine Navarrete ctive JANUVIA 50 MG TABS Take one by mouth daily DIEGO GLIPTIN PHOSPHATE 24788710580 Active Mitch Urbina DO Active JANUVIA 100 MG TABS 1/2 by mouth every day DIEGO GLIPTIN PHOSPHATE 90142935602 No Longer Active Bijal Segal RN Active METFORMIN HCL 500 MG TABS 2 by mouth twice daily METFORMIN HCL 07448571513 Active Mitch Urbina DO Active GLIMEPIRIDE 4 MG TABS 1 tab po bid GLIMEPIRIDE 373909 76354 Active Mitch Arnol Carlitos DO Active COLCRYS 0.6 MG TABS 1 po q 6 hours prn gout pain 03/02 COLCHICINE 86168185531 No Longer Active Camila Reese Active LISINOPRIL 5 MG TABS 1 by mouth every day LISIN OPRIL 33867670027 No Longer Active Nguyen Perez Active KLOR-CON 20 MEQ PACK Take one by mouth daily 8 POTASSIUM CHLORIDE 77367519207 No Longer Active Nguyenmolly Perez Active FUROSEMIDE 40 MG TABS 1 by mouth daily FUROSEMI DE 65558455384 No Longer Active Nguyen Perez Active PROVIGIL 200 MG TABS 1/2 tab po q day MODAFINIL 83990 732144 Active Kathie Juan RPT,RMA Active PROVIGIL 100 MG TABS Take one by mouth daily MO DAFINIL 00368251109 No Longer Active Mitch Urbina DO Active BACTRIM DS 800-160 MG TAB 1 tab by mouth twice daily 2 TRIMETHOPRIM-SULFAMETHOXAZOLE 59488123931 No Longer Active Renan Hays MD Active FAMOTIDINE 20 MG TABS by mouth twice a day FAMOTI DINE 61105354724 Active Mitch Urbina DO Active ADULT ASPIRIN LOW STRENGTH 81 MG TBDP 1 by mouth every daily ASPIRIN 47450945416 Active Mitch Urbina DO Active METOPROLOL TARTRATE 50 MG TABS 1 by mouth twice daily METOPROLOL TARTRATE 49156178601 Active Mitch Urbina DO Active BACTRIM DS 800-160 MG TAB 1 tab by mouth twice daily 2 BACTRIM DS 800-160 MG TAB 785742 TRIMETHOPRIM-SULFAMETHOXAZOLE Inac tive PROVIGIL 100 MG TABS Take one by mouth daily 4 PROVIGIL 100 MG TABS 626439 MODAFINIL Inactive FUROSEMIDE 40 MG TABS 1 by mouth daily FU ROSEMIDE 40 MG TABS 819215 FUROSEMIDE Inactive KLOR-CON 20 MEQ PACK Take one by mouth daily 8 KLOR-CON 20 MEQ PACK 483044 POTASSIUM CHLORIDE Inactive LISINOPRIL 5 MG TABS 1 by mouth every day LISINOPRIL 5 MG TABS 965290 LISINOPRIL Inactive COLCRYS 0.6 MG TABS 1 po q 6 hours prn gout pain 03/02 COLCRYS 0.6 MG TABS 950976 COLCHICINE Inactive JANUVIA 100 MG TABS 1/2 by mouth every day JANUVI A 100 MG TABS SITAGLIPTIN PHOSPHATE Inactive SIMVASTATIN 20 MG TABS 1 tab daily at bedtime SIMVASTATIN 20 MG TABS 247899 SIMVASTATIN Inactive COUMADIN 6 MG TABS 1 by mouth every other day COUMADIN 6 MG TABS 861431 WARFARIN SODIUM Inactive COUMADIN 5 MG TABS 1 by mouth every other day COUMADIN 5 MG TABS 493558 WARFARIN SODIUM Inactive LISINOPRIL 20 MG TABS 1 tab po at HS KOKI NOPRIL 20 MG TABS 460526 LISINOPRIL Inactive LISINOPRIL-HYDROCHLOROTHIAZIDE 20-12.5 MG TABS 1 tab by mouth da rocky LISINOPRIL-HYDROCHLOROTHIAZIDE 20-12.5 MG TABS 591182 LISINOPRIL-HYDROCHLOROTHIAZIDE Inactive POLYTRIM 44873-0.1 UNIT/ML-% SOLN 1 drop in affected e ye every 3 hours while awake x 7 days POLYTRIM 95623-9.1 UNIT/ML-% SOLN 99070 7 POLYMYXIN B-TRIMETHOPRIM Inactive COUMADIN 4 MG TABS 1 tablet daily COUMADIN 4 MG TABS 742365 WARFARIN SODIUM Inactive CLONIDINE HCL 0.1 MG TABS 1 po bid 7 days, then 1/2 tab po b id 7 days CLONIDINE HCL 0.1 MG TABS 100983 CLONIDINE HCL I nactive ALLOPURINOL 300 MG TABS Take 1 tablet by mouth daily 2 ALLOPURINOL 300 MG TABS 540365 ALLOPURINOL Inactive MECLIZINE HCL 25 MG TAB 1 po tid 3 days, then 1/2 tab tid 3 days MECLIZINE HCL 25 MG TAB 580181 MECLIZINE HCL Inactive LOVENOX 100 MG/ML SC SOLN One injection twice a day 09/15/15 LOVENOX 100 MG/ML SC SOLN 604246 ENOXAPARIN SODIUM Inactive Vital Signs Date Name [...] Range Description Chart Maintenance: hemoccult added to [facility] - Chemistry occult blood, stool (E&M) Positive [...] - Chem istry sodium, serum 136 mmol/L 862-448 3703/01/14 carbon dioxide, venous blood 25.4 mmol/L 21.0-32 [...] CBC - Chemistry cholesterol, serum 136 mg/dL 538-167 5456/08/09 triglyceride, serum, fasting 187 mg/dL 30-200 HDL [...] 1.0-3.5 Encounters Code Encounter Date Provider Facility CPT-97220 Level 3 Est. Patient 14:21:06 CDT Mitch luis [facility] CPT-49481 Level 3 Est. Patient 14:52:06 [facility] 3 Est. Patient 09:34:30 SALES AND OPERATIONS TRAINEE Mitch luis [facility] CPT-10053 Level 3 Est. Patient 09:37:15 CDT Mitch luis [facility] CPT-25256 Level 3 Est. Patient 17:01:00 SALES AND OPERATIONS TRAINEE Mitch luis [facility] CPT-25312 Level 3 Est. Patient 13:53:19 SALES AND OPERATIONS TRAINEE Mitch luis [facility] CPT-83496 Level 3 Est. Patient 19:19:37 SALES AND OPERATIONS TRAINEE Mitch luis [facility] CPT-19947 Level 3 Est. Patient 13:25:53 SALES AND OPERATIONS TRAINEE Tavo toure MD [facility] CPT-97587 Level 3 Est. Patient 18:17:28 CDT Mitch luis [facility] CPT-28919 Level 3 Est. Patient 15:22:57 CDT Mitch luis [facility] CPT-16861 Level 3 Est. Patient 18:21:50 CDT Mitch luis [facility] CPT-54998 Level 3 Est. Patient 18:20:38 CDT Mitch luis [facility] CPT-80140 Level 3 Est. Patient 15:37:55 CDT Mitch luis [facility] CPT-56170 Level 2 Est. Patient 15:54:44 CDT Carmine benton MD [facility] CPT-18249 Level 3 Est. Patient 21:46:01 SALES AND OPERATIONS TRAINEE Mitch luis [facility] CPT-62923 Level 3 Est. Patient 22:15:50 CDT Mitch luis [facility] CPT-92986 Level 3 Est. Patient 10:48:15 CDT Mitch luis [facility] CPT-39265 Level 3 Est. Patient 23:20:57 CDT Tavo toure MD [facility] CPT-61807 Level 3 Est. Patient 16:26:13 CDT Mitch luis [facility] Procedures Code Procedure Name Date Entry Date Standard Desc ription CPT-14770 PT/INR - LAB USE ONLY 09:22:03 SALES AND OPERATIONS TRAINEE CPT-54348 Venipuncture Draw Fee 09:22:02 SALES AND OPERATIONS TRAINEE CPT-88462 Hemoccult IFOBT - LAB USE ONLY 10:27:22 CDT CPT-79274 Venipuncture Draw Fee 08:27:08 CDT CPT-47616 Liver Profile - LAB USE ONLY 08:27:07 CDT 2 CPT-08419 Microalbumin - LAB USE ONLY 08:27:07 CDT 20 25/05/09 CPT-17091 PT/INR - LAB USE ONLY 08:27:07 CDT CPT-77815 HGBA1C - LAB USE ONLY 08:27:07 CDT CPT-07366 CBC - LAB USE ONLY 08:27:07 CDT CPT-29532 Venipuncture Draw Fee 11:09:14 CDT CPT-39163 Venipuncture Draw Fee 08:32:21 SALES AND [employer]PERATIONS TRAINEE CPT-05599 Venipuncture Draw Fee 09:38:56 SALES AND OPERATIONS TRAINEE CPT-18563 No Charge Offi Visit 21:36:07 CDT 1 CPT-26833 Venipuncture Draw Fee 10:13:28 SALES AND OPERATIONS TRAINEE CPT-23571 Venipuncture Draw Fee 08:31:11 CDT CPT-91489 Aspir/Inject Med Joint 18:17:28 CDT CPT-51731 Venipuncture Draw Fee 10:13:30 CDT CPT-84875 Venipuncture Draw Fee 08:31:43 SALES AND OPERATIONS TRAINEE CPT-JTINJ Joint Injection 18:34:50 CDT CPT-67210 Knee 3V 12:25:09 CDT CPT-74863 Venipuncture Draw Fee 12:15:57 CDT CPT-060 Medical Surveillance Exam 21:31:43 CDT 2011 CPT-03888 Venipuncture Draw Fee 08:32:05 SALES AND OPERATIONS TRAINEE CPT-OV Office Visit 18:19:06 CDT
--- OUTSIDE RECORDS SUMMARY | 2020-01-18 13:10 | XMS REPORT | Clinical Summary ---
Author Author Admin, Mitch Leon Organization [facility] Address Unknown Phone Unavailable Allergies, Adverse Reactions, [...] Coronary atherosclerosis of unspecified type of vessel, samish or graft EDEMA 782.3 Resolved Mitch Urbina [...] tab to equal 7mg daily WARFARIN SODIUM 23640189341 Active Mitch Urbina DO Active COLCRYS 0.6 MG TABS 1 tab qid prn gout COLCHICINE 30567352780 Active Kathie Juan RPT,RMA Active INVOKANA 100 MG ORAL TABS 1 tablet orally daily CANAGLIFLOZIN 46728252707 Active Mitch Urbina DO Active MINOXIDIL 2.5 MG TABS 1 tablet daily for high blood pressure 10/23 MINOXIDIL 29609875803 Active Domi Rivera MA Active AMLODIPINE BESYLATE 5 MG TABS 1 tablet by mouth daily AMLODIPINE BESYLATE 07408256183 Active Mitch Urbina DO Active MECLIZINE HCL 25 MG TAB 1 po tid 3 days, then 1/2 tab tid 3 days MECLIZINE HCL 27679158373 No Longer Active Corey SEGURA Active ALLOPURINOL 300 MG TABS Take 1 tablet by mouth daily 2 ALLOPURINOL 03840999171 No Longer Active Corey SEGURA Activ e CLONIDINE HCL 0.1 MG TABS 1 po bid 7 days, then 1/2 tab po b id 7 days CLONIDINE HCL 81169153122 No Longer Active Corey SEGURA Active COUMADIN 5 MG TABS 1 tab PO daily WARFARIN SODIUM 94929617972 Active Mitch Urbina DO Active COUMADIN 4 MG TABS 1 tablet daily WARFARIN SODI UM 24321861647 No Longer Active Corey SEGURA Active POLYTRIM 85830-2.1 UNIT/ML-% SOLN 1 drop in affected e ye every 3 hours while awake x 7 days POLYMYXIN B-TRIMETHOPRIM 63020062119 N o Longer Active Corey SEGURA Active LOSARTAN POTASSIUM-HCTZ 100-12.5 MG TABS 1 by mouth da rocky for high blood pressure LOSARTAN POTASSIUM-HCTZ 86788016130 Active Stephy Urbina DO Active LISINOPRIL-HYDROCHLOROTHIAZIDE 20-12.5 MG TABS 1 tab by mouth da rocky LISINOPRIL-HYDROCHLOROTHIAZIDE 87315220190 No Longer Active Mitch luis DO Active LISINOPRIL 20 MG TABS 1 tab po at HS LISINOPRIL 54382846161 No Longer Active Mitch Urbina DO Active COUMADIN 5 MG TABS 1 by mouth every other day WARFARIN SODIUM 88031085353 No Longer Active Mitch Urbina DO Active COUMADIN 6 MG TABS 1 by mouth every other day WARFARIN SODIUM 47736666243 No Longer Active Mitch W Carlitos DO Active SIMVASTATIN 40 MG TABS 1 tab daily at bedtime S IMVASTATIN 78021698314 Active Mitch Urbina DO Active SIMVASTATIN 20 MG TABS 1 tab daily at bedtime S IMVASTATIN 55746362074 No Longer Active Mitch Urbina DO Active LOVENOX 100 MG/ML SC SOLN One injection twice a day 09/15/15 ENOXAPARIN SODIUM 50272529608 No Longer Active Carmine Navarrete ctive JANUVIA 50 MG TABS Take one by mouth daily DIEGO GLIPTIN PHOSPHATE 56468974536 Active Mitch Urbina DO Active JANUVIA 100 MG TABS 1/2 by mouth every day DIEGO GLIPTIN PHOSPHATE 34657507150 No Longer Active Bijal Segal RN Active METFORMIN HCL 500 MG TABS 2 by mouth twice daily METFORMIN HCL 41334073556 Active Mitch Urbina DO Active GLIMEPIRIDE 4 MG TABS 1 tab po bid GLIMEPIRIDE 153341 86661 Active Mitch Urbina DO Active COLCRYS 0.6 MG TABS 1 po q 6 hours prn gout pain 03/02 COLCHICINE 99676983399 No Longer Active Camila Reese Active LISINOPRIL 5 MG TABS 1 by mouth every day LISIN OPRIL 10078016700 No Longer Active Nguyen Perez Active KLOR-CON 20 MEQ PACK Take one by mouth daily 8 POTASSIUM CHLORIDE 39104773451 No Longer Active Nguyen Perez Active FUROSEMIDE 40 MG TABS 1 by mouth daily FUROSEMI DE 12321735491 No Longer Active Nguyenmolly Perez Active PROVIGIL 200 MG TABS 1/2 tab po q day MODAFINIL 02359 611572 Active Mitch Urbina DO Active PROVIGIL 100 MG TABS Take one by mouth daily MO DAFINIL 05280045951 No Longer Active Mitch Urbina DO Active BACTRIM DS 800-160 MG TAB 1 tab by mouth twice daily 2 TRIMETHOPRIM-SULFAMETHOXAZOLE 64121964765 No Longer Active Renan Hays MD Active FAMOTIDINE 20 MG TABS by mouth twice a day FAMOTI DINE 18002263537 Active Mitch Urbina DO Active ADULT ASPIRIN LOW STRENGTH 81 MG TBDP 1 by mouth every daily ASPIRIN 33577791236 Active Mitch Urbina DO Active METOPROLOL TARTRATE 50 MG TABS 1 by mouth twice daily METOPROLOL TARTRATE 66821336372 Active Mitch Urbina DO Active BACTRIM DS 800-160 MG TAB 1 tab by mouth twice daily 2 BACTRIM DS 800-160 MG TAB 498530 TRIMETHOPRIM-SULFAMETHOXAZOLE Inac tive PROVIGIL 100 MG TABS Take one by mouth daily 4 PROVIGIL 100 MG TABS 859387 MODAFINIL Inactive FUROSEMIDE 40 MG TABS 1 by mouth daily FU ROSEMIDE 40 MG TABS 718656 FUROSEMIDE Inactive KLOR-CON 20 MEQ PACK Take one by mouth daily 8 KLOR-CON 20 MEQ PACK 348056 POTASSIUM CHLORIDE Inactive LISINOPRIL 5 MG TABS 1 by mouth every day LISINOPRIL 5 MG TABS 858311 LISINOPRIL Inactive COLCRYS 0.6 MG TABS 1 po q 6 hours prn gout pain 03/02 COLCRYS 0.6 MG TABS 954340 COLCHICINE Inactive JANUVIA 100 MG TABS 1/2 by mouth every day JANUVI A 100 MG TABS SITAGLIPTIN PHOSPHATE Inactive SIMVASTATIN 20 MG TABS 1 tab daily at bedtime SIMVASTATIN 20 MG TABS 271510 SIMVASTATIN Inactive COUMADIN 6 MG TABS 1 by mouth every other day COUMADIN 6 MG TABS 407067 WARFARIN SODIUM Inactive COUMADIN 5 MG TABS 1 by mouth every other day COUMADIN 5 MG TABS 847237 WARFARIN SODIUM Inactive LISINOPRIL 20 MG TABS 1 tab po at HS KOKI NOPRIL 20 MG TABS 582360 LISINOPRIL Inactive LISINOPRIL-HYDROCHLOROTHIAZIDE 20-12.5 MG TABS 1 tab by mouth da rocky LISINOPRIL-HYDROCHLOROTHIAZIDE 20-12.5 MG TABS 047132 LISINOPRIL-HYDROCHLOROTHIAZIDE Inactive POLYTRIM 82828-3.1 UNIT/ML-% SOLN 1 drop in affected e ye every 3 hours while awake x 7 days POLYTRIM 79065-9.1 UNIT/ML-% SOLN 36003 7 POLYMYXIN B-TRIMETHOPRIM Inactive COUMADIN 4 MG TABS 1 tablet daily COUMADIN 4 MG TABS 039314 WARFARIN SODIUM Inactive CLONIDINE HCL 0.1 MG TABS 1 po bid 7 days, then 1/2 tab po b id 7 days CLONIDINE HCL 0.1 MG TABS 693997 CLONIDINE HCL I nactive ALLOPURINOL 300 MG TABS Take 1 tablet by mouth daily 2 ALLOPURINOL 300 MG TABS 889340 ALLOPURINOL Inactive MECLIZINE HCL 25 MG TAB 1 po tid 3 days, then 1/2 tab tid 3 days MECLIZINE HCL 25 MG TAB 868382 MECLIZINE HCL Inactive LOVENOX 100 MG/ML SC SOLN One injection twice a day 09/15/15 LOVENOX 100 MG/ML SC SOLN 346706 ENOXAPARIN SODIUM Inactive Vital Signs Date Name [...] 11 .6-14.8 platelet count 276 10^3/MM^3 10*3/mm3 798-124 1040/01/14 hemoglobin, blood 12.2 g/dL 13.5-17.5 erythrocyte (RBC) count 4.57 10^6/MM^3 10*6/mm3 4.69-6.1 3 leukocyte count, blood 7.1 10^3/MM^3 10*3/mm3 4.6-10.2 Lab Report: Comp. Metabolic Panel - Chem istry sodium, serum 136 mmol/L 417-295 2759/01/14 carbon dioxide, venous blood 25.4 mmol/L 21.0-32 [...] 6.3 % 4.3-6.0 cholesterol, serum 136 mg/dL 973-120 7096/08/09 triglyceride, serum, fasting 187 mg/dL 30-200 HDL [...] 1.0-3.5 Encounters Code Encounter Date Provider Facility CPT-85458 Level 3 Est. Patient 14:21:06 CDT Mitch Ambrose L janelle [facility] CPT-19214 Level 3 Est. Patient 14:52:06 [facility] Level 3 Est. Patient 09:34:30 PHOTOGRAPHERS' MODEL Mitch W L ee [facility] CPT-45138 Level 3 Est. Patient 09:37:15 CDT Mitch W L ee [facility] CPT-38641 Level 3 Est. Patient 17:01:00 PHOTOGRAPHERS' MODEL Mitch W L ee [facility] CPT-64920 Level 3 Est. Patient 13:53:19 PHOTOGRAPHERS' MODEL Mitch W L janelle [facility] CPT-51557 Level 3 Est. Patient 19:19:37 PHOTOGRAPHERS' MODEL Mitch W L janelle [facility] CPT-12593 Level 3 Est. Patient 13:25:53 PHOTOGRAPHERS' MODEL Tavo toure MD [facility] CPT-34925 Level 3 Est. Patient 18:17:28 CDT Mitch W L ee [facility] CPT-07598 Level 3 Est. Patient 15:22:57 CDT Mitch W L janelle [facility] CPT-02267 Level 3 Est. Patient 18:21:50 CDT Mitch W L ee [facility] CPT-76873 Level 3 Est. Patient 18:20:38 CDT Mitch W L ee [facility] CPT-87812 Level 3 Est. Patient 15:37:55 CDT Mitch W L ee [facility] CPT-08120 Level 2 Est. Patient 15:54:44 CDT Carmine benton MD [facility]-47343 Level 3 Est. Patient 21:46:01 PHOTOGRAPHERS' MODEL Mitch luis [facility] CPT-14403 Level 3 Est. Patient 22:15:50 CDT Mitch luis DO [facility] CPT-53732 Level 3 Est. Patient 10:48:15 CDT Mitch luis DO [facility] CPT-22633 Level 3 Est. Patient 23:20:57 CDT Tavo toure MD [facility] CPT-01361 Level 3 Est. Patient 16:26:13 CDT Mitch luis [facility] Procedures Code Procedure Name Date Entry Date Standard Desc ription CPT-22037 Hemoccult IFOBT - LAB USE ONLY 10:27:22 CDT CPT-87394 Venipuncture Draw Fee 08:27:08 CDT CPT-18858 Liver Profile - LAB USE ONLY 08:27:07 CDT 2 CPT-45692 Microalbumin - LAB USE ONLY 08:27:07 CDT 20 25/05/09 CPT-40799 PT/INR - LAB USE ONLY 08:27:07 CDT CPT-79551 HGBA1C - LAB USE ONLY 08:27:07 CDT CPT-82518 CBC - LAB USE ONLY 08:27:07 CDT CPT-88350 Venipuncture Draw Fee 11:09:14 CDT CPT-95152 Venipuncture Draw Fee 08:32:21 PHOTOGRAPHERS' MODEL CPT-17709 Venipuncture Draw Fee 09:38:56 PHOTOGRAPHERS' MODEL CPT-95399 No Charge Offi Visit 21:36:07 CDT 1 CPT-49539 Venipuncture Draw Fee 10:13:28 PHOTOGRAPHERS' MODEL CPT-92101 Venipuncture Draw Fee 08:31:11 CDT CPT-89272 Aspir/Inject Med Joint 18:17:28 CDT CPT-30809 Venipuncture Draw Fee 10:13:30 CDT CPT-43503 Venipuncture Draw Fee 08:31:43 PHOTOGRAPHERS' MODEL CPT-JTINJ Joint Injection 18:34:50 CDT CPT-21480 Knee 3V 12:25:09 CDT CPT-59278 Venipuncture Draw Fee 12:15:57 CDT CPT-060 Medical Surveillance Exam 21:31:43 CDT 2011 CPT-86254 Venipuncture Draw Fee 08:32:05 PHOTOGRAPHERS' MODEL CPT-OV Office Visit 18:19:06 CDT
--- OUTSIDE RECORDS SUMMARY | 2020-01-18 13:10 | XMS REPORT | Clinical Summary ---
Author Author Admin, Mitch Leon Organization [facility] [place] Address Unknown Phone Unavailable Allergies, Adverse Reactions, [...] localized, involving lower leg DIZZINESS 780.4 Resolved Mithc Arnol Carlitos DO Dizziness and giddiness CAROTID [...] 500 MG CAP 1 po qid CEPHALEXIN 445976812 20 No Longer Active Mitch Urbina DO Active LOSARTAN POTASSIUM 100 MG TABS 1 pill by mouth daily, for bl ood pressure LOSARTAN POTASSIUM 28212584567 Active Ana Wallace Active AMLODIPINE BESYLATE 5 MG TABS 1 tablet by mouth daily AMLODIPINE BESYLATE 89871777840 No Longer Active Joe Williamson APRN Active MITIGARE 0.6 MG ORAL CAPS 2 capsules at onset of gout pain, then take one capsule at 1 hour if symptoms persist. COLCHICINE 59 728389062 Active Mitch Urbina DO Active COUMADIN 1 MG TAB 2 tabs orally daily with the 5mg tab to equal 7mg daily WARFARIN SODIUM 96491584916 Active Mitch Urbina DO Active COLCRYS 0.6 MG TABS 1 tab qid prn gout COLCHICINE 67247335626 Active Nomra Cazares Active INVOKANA 100 MG ORAL TABS 1 tablet orally daily CANAGLIFLOZIN 51693580017 Active Mitch Urbina DO Active MINOXIDIL 2.5 MG TABS 1 tablet daily for high blood pressure 10/23 MINOXIDIL 11731282908 Active Mitch Urbina DO Active MECLIZINE HCL 25 MG TAB 1 po tid 3 days, then 1/2 tab tid 3 days MECLIZINE HCL 20459118635 No Longer Active Corey SEGURA Active ALLOPURINOL 300 MG TABS Take 1 tablet by mouth daily 2 ALLOPURINOL 35624385546 No Longer Active Corey SEGURA Activ e CLONIDINE HCL 0.1 MG TABS 1 po bid 7 days, then 1/2 tab po b id 7 days CLONIDINE HCL 72347025565 No Longer Active Corey SEGURA Active COUMADIN 5 MG TABS 1 tab PO daily WARFARIN SODIUM 56908306651 Active Mitch Urbina DO Active COUMADIN 4 MG TABS 1 tablet daily WARFARIN SODI UM 08038733620 No Longer Active Corey SEGURA Active POLYTRIM 11238-2.1 UNIT/ML-% SOLN 1 drop in affected e ye every 3 hours while awake x 7 days POLYMYXIN B-TRIMETHOPRIM 40637141228 N o Longer Active Corey SEGURA Active LOSARTAN POTASSIUM-HCTZ 100-12.5 MG TABS 1 by mouth da rocky for high blood pressure LOSARTAN POTASSIUM-HCTZ 55016394839 No Longer A ctive Mitch Urbina DO Active LISINOPRIL-HYDROCHLOROTHIAZIDE 20-12.5 MG TABS 1 tab by mouth da rocky LISINOPRIL-HYDROCHLOROTHIAZIDE 55125333336 No Longer Active Mitch luis DO Active LISINOPRIL 20 MG TABS 1 tab po at HS LISINOPRIL 38164778405 No Longer Active Mitch Urbina DO Active COUMADIN 5 MG TABS 1 by mouth every other day WARFARIN SODIUM 77684868856 No Longer Active Mitch Urbina DO Active COUMADIN 6 MG TABS 1 by mouth every other day WARFARIN SODIUM 84158769935 No Longer Active Mitch Urbina DO Active SIMVASTATIN 40 MG TABS 1 tab daily at bedtime S IMVASTATIN 04007321490 Active Mitch Urbina DO Active SIMVASTATIN 20 MG TABS 1 tab daily at bedtime S IMVASTATIN 69503220394 No Longer Active Mitch Urbina DO Active LOVENOX 100 MG/ML SC SOLN One injection twice a day 09/15/15 ENOXAPARIN SODIUM 11225516393 No Longer Active Carmine Navarrete ctive JANUVIA 50 MG TABS Take one by mouth daily DIEGO GLIPTIN PHOSPHATE 65801215362 Active Mitch Urbina DO Active JANUVIA 100 MG TABS 1/2 by mouth every day DIEGO GLIPTIN PHOSPHATE 39872872154 No Longer Active Bijal Segal RN Active METFORMIN HCL 500 MG TABS 2 by mouth twice daily METFORMIN HCL 95776427140 Active Mitch Urbina DO Active GLIMEPIRIDE 4 MG TABS 1 tab po bid GLIMEPIRIDE 971320 53280 Active Mitch Urbina DO Active COLCRYS 0.6 MG TABS 1 po q 6 hours prn gout pain 03/02 COLCHICINE 18845088065 No Longer Active Camila Reese Active LISINOPRIL 5 MG TABS 1 by mouth every day LISIN OPRIL 97385458856 No Longer Active Nguyen Perez Active KLOR-CON 20 MEQ PACK Take one by mouth daily 8 POTASSIUM CHLORIDE 69141211486 No Longer Active Nguyen Perez Active FUROSEMIDE 40 MG TABS 1 by mouth daily FUROSEMI DE 18102294397 No Longer Active Nguyen Perez Active PROVIGIL 200 MG TABS 1/2 tab po q day MODAFINIL 07290 019412 Active Mitch Urbina DO Active PROVIGIL 100 MG TABS Take one by mouth daily MO DAFINIL 07996716774 No Longer Active Mitch Urbina DO Active BACTRIM DS 800-160 MG TAB 1 tab by mouth twice daily 2 TRIMETHOPRIM-SULFAMETHOXAZOLE 37758212045 No Longer Active Renan Hays MD Active FAMOTIDINE 20 MG TABS by mouth twice a day FAMOTI DINE 37318876508 Active Mitch Ubrina DO Active ADULT ASPIRIN LOW STRENGTH 81 MG TBDP 1 by mouth every daily ASPIRIN 11954765843 Active Mitch Urbina DO Active METOPROLOL TARTRATE 50 MG TABS 1 by mouth twice daily METOPROLOL TARTRATE 45078329627 Active Mitch Urbina DO Active BACTRIM DS 800-160 MG TAB 1 tab by mouth twice daily 2 BACTRIM DS 800-160 MG TAB 343179 TRIMETHOPRIM-SULFAMETHOXAZOLE Inac tive PROVIGIL 100 MG TABS Take one by mouth daily 4 PROVIGIL 100 MG TABS 995010 MODAFINIL Inactive FUROSEMIDE 40 MG TABS 1 by mouth daily FU ROSEMIDE 40 MG TABS 510659 FUROSEMIDE Inactive KLOR-CON 20 MEQ PACK Take one by mouth daily 8 KLOR-CON 20 MEQ PACK POTASSIUM CHLORIDE Inactive LISINOPRIL 5 MG TABS 1 by mouth every day LISINOPRIL 5 MG TABS 957917 LISINOPRIL Inactive COLCRYS 0.6 MG TABS 1 po q 6 hours prn gout pain 03/02 COLCRYS 0.6 MG TABS 196612 COLCHICINE Inactive JANUVIA 100 MG TABS 1/2 by mouth every day JANUVI A 100 MG TABS SITAGLIPTIN PHOSPHATE Inactive SIMVASTATIN 20 MG TABS 1 tab daily at bedtime SIMVASTATIN 20 MG TABS 275910 SIMVASTATIN Inactive COUMADIN 6 MG TABS 1 by mouth every other day COUMADIN 6 MG TABS 978053 WARFARIN SODIUM Inactive COUMADIN 5 MG TABS 1 by mouth every other day COUMADIN 5 MG TABS 483195 WARFARIN SODIUM Inactive LISINOPRIL 20 MG TABS 1 tab po at HS KOKI NOPRIL 20 MG TABS 960238 LISINOPRIL Inactive LISINOPRIL-HYDROCHLOROTHIAZIDE 20-12.5 MG TABS 1 tab by mouth da rocky LISINOPRIL-HYDROCHLOROTHIAZIDE 20-12.5 MG TABS 928511 LISINOPRIL-HYDROCHLOROTHIAZIDE Inactive POLYTRIM 66567-5.1 UNIT/ML-% SOLN 1 drop in affected e ye every 3 hours while awake x 7 days POLYTRIM 24529-4.1 UNIT/ML-% SOLN 19660 7 POLYMYXIN B-TRIMETHOPRIM Inactive COUMADIN 4 MG TABS 1 tablet daily COUMADIN 4 MG TABS 973225 WARFARIN SODIUM Inactive CLONIDINE HCL 0.1 MG TABS 1 po bid 7 days, then 1/2 tab po b id 7 days CLONIDINE HCL 0.1 MG TABS 622073 CLONIDINE HCL I nactive ALLOPURINOL 300 MG TABS Take 1 tablet by mouth daily 2 ALLOPURINOL 300 MG TABS 689203 ALLOPURINOL Inactive MECLIZINE HCL 25 MG TAB 1 po tid 3 days, then 1/2 tab tid 3 days MECLIZINE HCL 25 MG TAB 077253 MECLIZINE HCL Inactive AMLODIPINE BESYLATE 5 MG TABS 1 tablet by mouth daily AMLODIPINE BESYLATE 5 MG TABS 252404 AMLODIPINE BESYLATE Inactive KEFLEX 500 MG CAP 1 po qid KEFLEX 500 MG CAP 30 9114 CEPHALEXIN Inactive LOVENOX 100 MG/ML SC SOLN One injection twice a day 09/15/15 LOVENOX 100 MG/ML SC SOLN 553277 ENOXAPARIN SODIUM Inactive Vital Signs Date Name [...] - Chem istry sodium, serum 139 mmol/L 254-658 6213/07/17 potassium, serum 4.2 mmol/L 3.5-5.2 chloride, serum 102 mmol/L 98-107 carbon dioxide, venous blood 28.9 mmol/L 21.0-32 .0 blood glucose 211 mg/dL 65-110 calcium, serum 10.6 mg/dL 8.5-10.1 urea nitrogen, blood 29 mg/dL 7-18 creatinine, serum 1.24 mg/dL 0.60-1.30 sodium, serum 141 mmol/L 462-957 2310/08/07 potassium, serum 4.5 mmol/L 3.5-5.2 chloride, serum [...] ... - Chemistry sodium, serum 144 mmol/L 683-272 9642/06/12 carbon dioxide, venous blood 26.6 mmol/L 21.0-32 [...] 1.0-3.5 Encounters Code Encounter Date Provider Facility CPT-21968 Level 3 Est. Patient 18:25:[address] [facility] CPT-40211 Level 3 Est. Patient 19:43:[address] [facility] CPT-17615 Level 4 Est. Patient 09:30:[address] [facility] CPT-15874 Level 3 Est. Patient 15:10:14 CDT Joe Jason anh [facility] CPT-32104 Level 3 Est. Patient 15:03:46 CDT Joe Jason anh [facility] CPT-70793 Level 3 Est. Patient 14:21:[address] [facility] CPT-19106 Level 3 Est. Patient 14:52:06 CDT Joe Jason courtangela [facility] CPT-98860 Level 3 Est. Patient 09:34:30 EVENT REPRESENTATIVE Mitch luis [facility] CPT-64719 Level 3 Est. Patient 09:37:[address] [facility] CPT-81794 Level 3 Est. Patient 17:01:00 EVENT REPRESENTATIVE Mitch luis [facility] CPT-87854 Level 3 Est. Patient 13:53:19 EVENT REPRESENTATIVE Mitch luis [facility] CPT-49212 Level 3 Est. Patient 19:19:37 EVENT REPRESENTATIVE Mitch luis [facility] CPT-03040 Level 3 Est. Patient 13:25:53 EVENT REPRESENTATIVE Tavo toure MD [facility] CPT-18387 Level 3 Est. Patient 18:17:28 CDT Mitch luis [facility] CPT-10188 Level 3 Est. Patient 15:22:[address] [facility] CPT-67168 Level 3 Est. Patient 18:21:[address] [facility] CPT-13225 Level 3 Est. Patient 18:20:[address] [facility] CPT-72407 Level 3 Est. Patient 15:37:55 CDT Mitch luis [facility] CPT-29711 Level 2 Est. Patient 15:54:44 CDT Carmine benton MD [facility] CPT-91841 Level 3 Est. Patient 21:46:01 EVENT REPRESENTATIVE Mitch luis [facility] CPT-19370 Level 3 Est. Patient 22:15:50 CDT Mitch luis [facility] CPT-72768 Level 3 Est. Patient 10:48:15 CDT Mitch luis [facility] CPT-20140 Level 3 Est. Patient 23:20:57 CDT Tavo toure MD [facility] CPT-31214 Level 3 Est. Patient 16:26:13 CDT Mitch luis [facility] Procedures Code Procedure Name Date Entry Date Standard Desc ription CPT-78881 Venipuncture Draw Fee 09:26:17 CDT CPT-39713 PT/INR - LAB USE ONLY 13:32:49 EVENT REPRESENTATIVE CPT-34620 Venipuncture Draw Fee 13:32:49 EVENT REPRESENTATIVE CPT-40063 PT/INR - LAB USE ONLY 10:34:49 EVENT REPRESENTATIVE CPT-92722 Venipuncture Draw Fee 10:34:48 EVENT REPRESENTATIVE CPT-10025 PT/INR - LAB USE ONLY 09:22:03 EVENT REPRESENTATIVE CPT-21274 Venipuncture Draw Fee 09:22:02 EVENT REPRESENTATIVE CPT-77363 Hemoccult IFOBT - LAB USE ONLY 10:27:22 CDT CPT-86751 Venipuncture Draw Fee 08:27:08 CDT CPT-96491 Liver Profile - LAB USE ONLY 08:27:07 CDT 2 CPT-13345 Microalbumin - LAB USE ONLY 08:27:07 CDT 20 25/05/09 CPT-23848 PT/INR - LAB USE ONLY 08:27:07 CDT CPT-68336 HGBA1C - LAB USE ONLY 08:27:07 CDT CPT-76628 CBC - LAB USE ONLY 08:27:07 CDT CPT-27668 Venipuncture Draw Fee 11:09:14 CDT CPT-04617 Venipuncture Draw Fee 08:32:21 EVENT REPRESENTATIVE CPT-56024 Venipuncture Draw Fee 09:38:56 EVENT REPRESENTATIVE CPT-92264 No Charge Offi Visit 21:36:07 CDT 1 CPT-99168 Venipuncture Draw Fee 10:13:28 EVENT REPRESENTATIVE CPT-13249 Venipuncture Draw Fee 08:31:11 CDT CPT-21201 Aspir/Inject Med Joint 18:17:28 CDT CPT-92464 Venipuncture Draw Fee 10:13:30 CDT CPT-60927 Venipuncture Draw Fee 08:31:43 EVENT REPRESENTATIVE CPT-JTINJ Joint Injection 18:34:50 CDT CPT-84335 Knee 3V 12:25:09 CDT CPT-30067 Venipuncture Draw Fee 12:15:57 CDT CPT-060 Medical Surveillance Exam 21:31:43 CDT 2011 CPT-44096 Venipuncture Draw Fee 08:32:05 EVENT REPRESENTATIVE CPT-OV Office Visit 18:19:06 CDT
--- OUTSIDE RECORDS SUMMARY | 2020-01-18 13:10 | XMS REPORT | Clinical Summary ---
[...] Coronary atherosclerosis of unspecified type of vessel, [place] or graft EDEMA 782.3 Resolved Mitch Urbina [...] ORAL TABS 1 tablet orally daily CANAGLIFLOZIN 75229497436 Active Kathie Juan RPT,RMA Active MINOXIDIL 2.5 MG TABS 1 tablet daily for high blood pressure 10/23 MINOXIDIL 72311165183 Active Mitch Arnol Carlitos DO Active AMLODIPINE BESYLATE 5 MG TABS 1 tablet by mouth daily AMLODIPINE BESYLATE 71817639690 Active Domi Rivera MA Active MECLIZINE HCL 25 MG TAB 1 po tid 3 days, then 1/2 tab tid 3 days MECLIZINE HCL 64411715302 No Longer Active Corey SEGURA Active ALLOPURINOL 300 MG TABS Take 1 tablet by mouth daily 2 ALLOPURINOL 23601957859 No Longer Active Corey SEGURA Activ e CLONIDINE HCL 0.1 MG TABS 1 po bid 7 days, then 1/2 tab po b id 7 days CLONIDINE HCL 56867828869 No Longer Active Corey SEGURA Active COUMADIN 5 MG TABS 1 tab PO daily WARFARIN SODIUM 47916809194 Active Mitch Urbina DO Active COUMADIN 4 MG TABS 1 tablet daily WARFARIN SODI UM 51195679803 No Longer Active Corey SEGURA Active POLYTRIM 46228-5.1 UNIT/ML-% SOLN 1 drop in affected e ye every 3 hours while awake x 7 days POLYMYXIN B-TRIMETHOPRIM 42641713456 N o Longer Active Corey SEGURA Active LOSARTAN POTASSIUM-HCTZ 100-12.5 MG TABS 1 by mouth da rocky for high blood pressure LOSARTAN POTASSIUM-HCTZ 01854037243 Active Stephy Urbina DO Active LISINOPRIL-HYDROCHLOROTHIAZIDE 20-12.5 MG TABS 1 tab by mouth da rocky LISINOPRIL-HYDROCHLOROTHIAZIDE 51903066971 No Longer Active Mitch luis DO Active LISINOPRIL 20 MG TABS 1 tab po at HS LISINOPRIL 28836580140 No Longer Active Mitch Urbina DO Active COUMADIN 5 MG TABS 1 by mouth every other day WARFARIN SODIUM 79304223862 No Longer Active Mitch Urbina DO Active COUMADIN 6 MG TABS 1 by mouth every other day WARFARIN SODIUM 94397276073 No Longer Active Mitch Urbina DO Active COLCRYS 0.6 MG TABS 1 tab qid prn gout COLCHICINE 75770051924 Active Corey SEGURA Active SIMVASTATIN 40 MG TABS 1 tab daily at bedtime S IMVASTATIN 42361812002 Active Domi Rivera MA Active SIMVASTATIN 20 MG TABS 1 tab daily at bedtime S IMVASTATIN 63285798936 No Longer Active Mitch Urbina DO Active LOVENOX 100 MG/ML SC SOLN One injection twice a day 09/15/15 ENOXAPARIN SODIUM 14643153384 No Longer Active Carmine Navarrete ctive JANUVIA 50 MG TABS Take one by mouth daily DIEGO GLIPTIN PHOSPHATE 23499952634 Active Domi Rivera MA Active JANUVIA 100 MG TABS 1/2 by mouth every day DIEGO GLIPTIN PHOSPHATE 04981293419 No Longer Active Bijal Segal RN Active METFORMIN HCL 500 MG TABS 2 by mouth twice daily METFORMIN HCL 69656648231 Active Mitch Urbina DO Active GLIMEPIRIDE 4 MG TABS 1 tab po bid GLIMEPIRIDE 185097 81705 Active Mitch Urbina DO Active COLCRYS 0.6 MG TABS 1 po q 6 hours prn gout pain 03/02 COLCHICINE 44016989723 No Longer Active Camila Reese Active LISINOPRIL 5 MG TABS 1 by mouth every day LISIN OPRIL 34613044434 No Longer Active Nguyenmolly Perez Active KLOR-CON 20 MEQ PACK Take one by mouth daily 8 POTASSIUM CHLORIDE 24247084024 No Longer Active Nguyenmolly Perez Active FUROSEMIDE 40 MG TABS 1 by mouth daily FUROSEMI DE 84837997958 No Longer Active Nguyen Perez Active PROVIGIL 200 MG TABS 1/2 tab po q day MODAFINIL 38538 232285 Active Kathie Juan RPT,RMA Active PROVIGIL 100 MG TABS Take one by mouth daily MO DAFINIL 78046473049 No Longer Active Mitch Urbina DO Active BACTRIM DS 800-160 MG TAB 1 tab by mouth twice daily 2 TRIMETHOPRIM-SULFAMETHOXAZOLE 78924834343 No Longer Active Renan Hays MD Active FAMOTIDINE 20 MG TABS by mouth twice a day FAMOTI DINE 40238912025 Active Mitch Urbina DO Active ADULT ASPIRIN LOW STRENGTH 81 MG TBDP 1 by mouth every daily ASPIRIN 30830276893 Active Mitch Urbina DO Active METOPROLOL TARTRATE 50 MG TABS 1 by mouth twice daily METOPROLOL TARTRATE 09179800980 Active Kathie Juan RPT,RMA Acti ve BACTRIM DS 800-160 MG TAB 1 tab by mouth twice daily 2 BACTRIM DS 800-160 MG TAB 021721 TRIMETHOPRIM-SULFAMETHOXAZOLE Inac tive PROVIGIL 100 MG TABS Take one by mouth daily 4 PROVIGIL 100 MG TABS 093151 MODAFINIL Inactive FUROSEMIDE 40 MG TABS 1 by mouth daily FU ROSEMIDE 40 MG TABS 210255 FUROSEMIDE Inactive KLOR-CON 20 MEQ PACK Take one by mouth daily 8 KLOR-CON 20 MEQ PACK 357928 POTASSIUM CHLORIDE Inactive LISINOPRIL 5 MG TABS 1 by mouth every day LISINOPRIL 5 MG TABS 082319 LISINOPRIL Inactive COLCRYS 0.6 MG TABS 1 po q 6 hours prn gout pain 03/02 COLCRYS 0.6 MG TABS 955975 COLCHICINE Inactive JANUVIA 100 MG TABS 1/2 by mouth every day JANUVI A 100 MG TABS SITAGLIPTIN PHOSPHATE Inactive SIMVASTATIN 20 MG TABS 1 tab daily at bedtime SIMVASTATIN 20 MG TABS 597837 SIMVASTATIN Inactive COUMADIN 6 MG TABS 1 by mouth every other day COUMADIN 6 MG TABS 517966 WARFARIN SODIUM Inactive COUMADIN 5 MG TABS 1 by mouth every other day COUMADIN 5 MG TABS 911787 WARFARIN SODIUM Inactive LISINOPRIL 20 MG TABS 1 tab po at HS KKOI NOPRIL 20 MG TABS 352944 LISINOPRIL Inactive LISINOPRIL-HYDROCHLOROTHIAZIDE 20-12.5 MG TABS 1 tab by mouth da rocky LISINOPRIL-HYDROCHLOROTHIAZIDE 20-12.5 MG TABS 437163 LISINOPRIL-HYDROCHLOROTHIAZIDE Inactive POLYTRIM 57218-7.1 UNIT/ML-% SOLN 1 drop in affected e ye every 3 hours while awake x 7 days POLYTRIM 66967-4.1 UNIT/ML-% SOLN 04437 7 POLYMYXIN B-TRIMETHOPRIM Inactive COUMADIN 4 MG TABS 1 tablet daily COUMADIN 4 MG TABS 387697 WARFARIN SODIUM Inactive CLONIDINE HCL 0.1 MG TABS 1 po bid 7 days, then 1/2 tab po b id 7 days CLONIDINE HCL 0.1 MG TABS 906784 CLONIDINE HCL I nactive ALLOPURINOL 300 MG TABS Take 1 tablet by mouth daily 2 ALLOPURINOL 300 MG TABS 255602 ALLOPURINOL Inactive MECLIZINE HCL 25 MG TAB 1 po tid 3 days, then 1/2 tab tid 3 days MECLIZINE HCL 25 MG TAB 398495 MECLIZINE HCL Inactive LOVENOX 100 MG/ML SC SOLN One injection twice a day 09/15/15 LOVENOX 100 MG/ML SC SOLN 860682 ENOXAPARIN SODIUM Inactive Vital Signs Date Name [...] Ag - Chemistry sodium, serum 141 mmol/L 325-286 8566/07/06 potassium, serum 4.4 mmol/L 3.5-5.2 chloride, serum [...] - Chem istry sodium, serum 136 mmol/L 764-399 0240/01/14 carbon dioxide, venous blood 25.4 mmol/L 21.0-32 [...] 7.0 % 4.3-6.0 cholesterol, serum 120 mg/dL 689-287 3915/07/06 triglyceride, serum, fasting 186 mg/dL 30-200 HDL [...] 1.0-3.5 Encounters Code Encounter Date Provider Facility CPT-90281 Level 3 Est. Patient 09:34:30 ALLIED HEALTH INSTRUCTOR Mitch luis [facility] CPT-27472 Level 3 Est. Patient 09:37:15 CDT Mitch luis [facility] CPT-17664 Level 3 Est. Patient 17:01:00 ALLIED HEALTH INSTRUCTOR Mitch W L ee DO [facility] CPT-86582 Level 3 Est. Patient 13:53:19 ALLIED HEALTH INSTRUCTOR Mitch W L ee DO [facility] CPT-67727 Level 3 Est. Patient 19:19:37 ALLIED HEALTH INSTRUCTOR Mitch W L ee DO [facility] CPT-09339 Level 3 Est. Patient 13:25:53 ALLIED HEALTH INSTRUCTOR Tavo toure MD [facility] CPT-65221 Level 3 Est. Patient 18:17:28 CDT Mitch W L ee [facility] CPT-58181 Level 3 Est. Patient 15:22:57 CDT Mitch W L ee [facility] CPT-05197 Level 3 Est. Patient 18:21:50 CDT Mitch W L ee DO [facility] CPT-21989 Level 3 Est. Patient 18:20:38 CDT Mitch W L ee DO [facility] CPT-48083 Level 3 Est. Patient 15:37:55 CDT Mitch W L ee [facility] CPT-25676 Level 2 Est. Patient 15:54:44 CDT Carmine benton MD [facility] CPT-10420 Level 3 Est. Patient 21:46:01 ALLIED HEALTH INSTRUCTOR Mitch W L ee DO [facility] CPT-78821 Level 3 Est. Patient 22:15:50 CDT Mitch W L ee [facility] CPT-63322 Level 3 Est. Patient 10:48:15 CDT Mitch W L ee [facility] CPT-25445 Level 3 Est. Patient 23:20:57 CDT Tavo toure MD [facility] CPT-31726 Level 3 Est. Patient 16:26:13 CDT Mitch luis [facility] Procedures Code Procedure Name Date Entry Date Standard Desc ription CPT-97244 Venipuncture Draw Fee 09:38:56 ALLIED HEALTH INSTRUCTOR CPT-55151 No Charge Offi Visit 21:36:07 CDT 1 CPT-23806 Venipuncture Draw Fee 10:13:28 ALLIED HEALTH INSTRUCTOR CPT-68276 Venipuncture Draw Fee 08:31:11 CDT CPT-65366 Aspir/Inject Med Joint 18:17:28 CDT CPT-90757 Venipuncture Draw Fee 10:13:30 CDT CPT-21633 Venipuncture Draw Fee 08:31:43 ALLIED HEALTH INSTRUCTOR CPT-JTINJ Joint Injection 18:34:50 CDT CPT-66856 Knee 3V 12:25:09 CDT CPT-42669 Venipuncture Draw Fee 12:15:57 CDT CPT-060 Medical Surveillance Exam 21:31:43 CDT 2011 CPT-17119 Venipuncture Draw Fee 08:32:05 ALLIED HEALTH INSTRUCTOR CPT-OV Office Visit 18:19:06 CDT
--- OUTSIDE RECORDS SUMMARY | 2020-01-18 13:11 | XMS REPORT | Clinical Summary ---
Author Author Admin, Mitch Leon Organization [facility] Address Unknown Phone Unavailable Allergies, [...] Coronary atherosclerosis of unspecified type of vessel, [place] or graft EDEMA 782.3 Resolved Mitch Urbina [...] 1 tablet by mouth daily AMLODIPINE BESYLATE 92033586050 No Longer Active Joe Williamson APRN Active MITIGARE 0.6 MG ORAL CAPS 2 capsules at onset of gout pain, then take one capsule at 1 hour if symptoms persist. COLCHICINE 59 633750681 Active Mitch Urbina DO Active COUMADIN 1 MG TAB 2 tabs orally daily with the 5mg tab to equal 7mg daily WARFARIN SODIUM 17079783269 Active Mitch Urbina DO Active COLCRYS 0.6 MG TABS 1 tab qid prn gout COLCHICINE 72387490281 Active Norma Sage Active INVOKANA 100 MG ORAL TABS 1 tablet orally daily CANAGLIFLOZIN 42105231356 Active Micth Urbina DO Active MINOXIDIL 2.5 MG TABS 1 tablet daily for high blood pressure 10/23 MINOXIDIL 71312744265 Active Mitch Urbina DO Active MECLIZINE HCL 25 MG TAB 1 po tid 3 days, then 1/2 tab tid 3 days MECLIZINE HCL 07457377210 No Longer Active Corey SEGURA Active ALLOPURINOL 300 MG TABS Take 1 tablet by mouth daily 2 ALLOPURINOL 49712402654 No Longer Active Corey SEGURA Activ e CLONIDINE HCL 0.1 MG TABS 1 po bid 7 days, then 1/2 tab po b id 7 days CLONIDINE HCL 67741474960 No Longer Active Corey SEGURA Active COUMADIN 5 MG TABS 1 tab PO daily WARFARIN SODIUM 68752146166 Active Mitch Urbina DO Active COUMADIN 4 MG TABS 1 tablet daily WARFARIN SODI UM 73541479029 No Longer Active Corey SEGURA Active POLYTRIM 14867-6.1 UNIT/ML-% SOLN 1 drop in affected e ye every 3 hours while awake x 7 days POLYMYXIN B-TRIMETHOPRIM 66333206018 N o Longer Active Corey SEGURA Active LOSARTAN POTASSIUM-HCTZ 100-12.5 MG TABS 1 by mouth [place] for high blood pressure LOSARTAN POTASSIUM-HCTZ 81914171163 Active Stephy Urbina DO Active LISINOPRIL-HYDROCHLOROTHIAZIDE 20-12.5 MG TABS 1 tab by mouth da rocky LISINOPRIL-HYDROCHLOROTHIAZIDE 62405126945 No Longer Active Mitch luis DO Active LISINOPRIL 20 MG TABS 1 tab po at HS LISINOPRIL 81392035197 No Longer Active Mitch Urbina DO Active COUMADIN 5 MG TABS 1 by mouth every other day WARFARIN SODIUM 90667822932 No Longer Active Mitch Urbina DO Active COUMADIN 6 MG TABS 1 by mouth every other day WARFARIN SODIUM 99062239114 No Longer Active Mitch Urbina DO Active SIMVASTATIN 40 MG TABS 1 tab daily at bedtime S IMVASTATIN 77585341519 Active Mitch Urbina DO Active SIMVASTATIN 20 MG TABS 1 tab daily at bedtime S IMVASTATIN 96460491483 No Longer Active Mitch Urbina DO Active LOVENOX 100 MG/ML SC SOLN One injection twice a day 09/15/15 ENOXAPARIN SODIUM 73965895553 No Longer Active Carmine Navarrete ctive JANUVIA 50 MG TABS Take one by mouth daily DIEGO GLIPTIN PHOSPHATE 14025868897 Active Mitch Urbina DO Active JANUVIA 100 MG TABS 1/2 by mouth every day DIEGO GLIPTIN PHOSPHATE 75510302524 No Longer Active Bijal Segal RN Active METFORMIN HCL 500 MG TABS 2 by mouth twice daily METFORMIN HCL 06863223672 Active Mitch Urbina DO Active GLIMEPIRIDE 4 MG TABS 1 tab po bid GLIMEPIRIDE 487740 50408 Active Mitch Urbina DO Active COLCRYS 0.6 MG TABS 1 po q 6 hours prn gout pain 03/02 COLCHICINE 99406511951 No Longer Active Camila Reese Active LISINOPRIL 5 MG TABS 1 by mouth every day LISIN OPRIL 82402939756 No Longer Active Nguyen Perez Active KLOR-CON 20 MEQ PACK Take one by mouth daily 8 POTASSIUM CHLORIDE 42816066106 No Longer Active Nguyen Perez Active FUROSEMIDE 40 MG TABS 1 by mouth daily FUROSEMI DE 65372764324 No Longer Active Nguyen Perez Active PROVIGIL 200 MG TABS 1/2 tab po q day MODAFINIL 20210 122756 Active Mitch Urbina DO Active PROVIGIL 100 MG TABS Take one by mouth daily MO DAFINIL 42094656244 No Longer Active Mitch Urbina DO Active BACTRIM DS 800-160 MG TAB 1 tab by mouth twice daily 2 TRIMETHOPRIM-SULFAMETHOXAZOLE 40857778265 No Longer Active Renan Hays MD Active FAMOTIDINE 20 MG TABS by mouth twice a day FAMOTI DINE 92201950968 Active Mitch Urbina DO Active ADULT ASPIRIN LOW STRENGTH 81 MG TBDP 1 by mouth every daily ASPIRIN 11300524371 Active Mitch Urbina DO Active METOPROLOL TARTRATE 50 MG TABS 1 by mouth twice daily METOPROLOL TARTRATE 93490956310 Active Mitch Urbina DO Active BACTRIM DS 800-160 MG TAB 1 tab by mouth twice daily 2 BACTRIM DS 800-160 MG TAB 848925 TRIMETHOPRIM-SULFAMETHOXAZOLE Inac tive PROVIGIL 100 MG TABS Take one by mouth daily 4 PROVIGIL 100 MG TABS 289720 MODAFINIL Inactive FUROSEMIDE 40 MG TABS 1 by mouth daily FU ROSEMIDE 40 MG TABS 350759 FUROSEMIDE Inactive KLOR-CON 20 MEQ PACK Take one by mouth daily 8 KLOR-CON 20 MEQ PACK 7135561 POTASSIUM CHLORIDE Inactive LISINOPRIL 5 MG TABS 1 by mouth every day LISINOPRIL 5 MG TABS 362824 LISINOPRIL Inactive COLCRYS 0.6 MG TABS 1 po q 6 hours prn gout pain 03/02 COLCRYS 0.6 MG TABS 214672 COLCHICINE Inactive JANUVIA 100 MG TABS 1/2 by mouth every day JANUVI A 100 MG TABS SITAGLIPTIN PHOSPHATE Inactive SIMVASTATIN 20 MG TABS 1 tab daily at bedtime SIMVASTATIN 20 MG TABS 559689 SIMVASTATIN Inactive COUMADIN 6 MG TABS 1 by mouth every other day COUMADIN 6 MG TABS 806603 WARFARIN SODIUM Inactive COUMADIN 5 MG TABS 1 by mouth every other day COUMADIN 5 MG TABS 796431 WARFARIN SODIUM Inactive LISINOPRIL 20 MG TABS 1 tab po at HS KOKI NOPRIL 20 MG TABS 897615 LISINOPRIL Inactive LISINOPRIL-HYDROCHLOROTHIAZIDE 20-12.5 MG TABS 1 tab by mouth da rocky LISINOPRIL-HYDROCHLOROTHIAZIDE 20-12.5 MG TABS 232735 LISINOPRIL-HYDROCHLOROTHIAZIDE Inactive POLYTRIM 58439-5.1 UNIT/ML-% SOLN 1 drop in affected e ye every 3 hours while awake x 7 days POLYTRIM 41001-1.1 UNIT/ML-% SOLN 39214 7 POLYMYXIN B-TRIMETHOPRIM Inactive COUMADIN 4 MG TABS 1 tablet daily COUMADIN 4 MG TABS 359581 WARFARIN SODIUM Inactive CLONIDINE HCL 0.1 MG TABS 1 po bid 7 days, then 1/2 tab po b id 7 days CLONIDINE HCL 0.1 MG TABS 529352 CLONIDINE HCL I nactive ALLOPURINOL 300 MG TABS Take 1 tablet by mouth daily 2 ALLOPURINOL 300 MG TABS 057170 ALLOPURINOL Inactive MECLIZINE HCL 25 MG TAB 1 po tid 3 days, then 1/2 tab tid 3 days MECLIZINE HCL 25 MG TAB 854662 MECLIZINE HCL Inactive AMLODIPINE BESYLATE 5 MG TABS 1 tablet by mouth daily AMLODIPINE BESYLATE 5 MG TABS 961996 AMLODIPINE BESYLATE Inactive LOVENOX 100 MG/ML SC SOLN One injection twice a day 09/15/15 LOVENOX 100 MG/ML SC SOLN 558458 ENOXAPARIN SODIUM Inactive Vital Signs Date Name [...] ... - Chemistry sodium, serum 144 mmol/L 653-700 1546/06/12 carbon dioxide, venous blood 26.6 mmol/L 21.0-32 [...] CBC - Chemistry cholesterol, serum 136 mg/dL 927-048 7814/08/09 triglyceride, serum, fasting 187 mg/dL 30-200 HDL [...] 1.0-3.5 Encounters Code Encounter Date Provider Facility CPT-27567 Level 4 Est. Patient 09:30:18 CDT Mitch luis [facility] CPT-45642 Level 3 Est. Patient 15:10:14 CDT Joe kamara [facility] CPT-94161 Level 3 Est. Patient 15:03:46 CDT Joe kamara [facility] CPT-79887 Level 3 Est. Patient 14:21:06 CDT Mitch luis [facility] CPT-96817 Level 3 Est. Patient 14:52:06 CDT Joe kamara [facility] CPT-62173 Level 3 Est. Patient 09:34:30 PRODUCTS MECHANICAL DESIGN ENGINEER Mitch luis [facility] CPT-90364 Level 3 Est. Patient 09:37:15 CDT Mitch W L ee [facility] CPT-06706 Level 3 Est. Patient 17:01:00 PRODUCTS MECHANICAL DESIGN ENGINEER Mitch W L ee [facility] CPT-03960 Level 3 Est. Patient 13:53:19 PRODUCTS MECHANICAL DESIGN ENGINEER Mitch W L ee [facility] CPT-91201 Level 3 Est. Patient 19:19:37 PRODUCTS MECHANICAL DESIGN ENGINEER Mithc W L ee [facility] CPT-86004 Level 3 Est. Patient 13:25:53 PRODUCTS MECHANICAL DESIGN ENGINEER Tavo torue MD [facility]-14998 Level 3 Est. Patient 18:17:28 CDT Mitch W L ee [facility] CPT-05578 Level 3 Est. Patient 15:22:57 CDT Mitch W L ee [facility]-63466 Level 3 Est. Patient 18:21:50 CDT Mitch W L ee [facility] CPT-32123 Level 3 Est. Patient 18:20:38 CDT Mitch W L ee [facility] [place]-97824 Level 3 Est. Patient 15:37:55 CDT Mitch W L ee [facility] CPT-62113 Level 2 Est. Patient 15:54:44 CDT Carmine benton MD [facility]-81146 Level 3 Est. Patient 21:46:01 PRODUCTS MECHANICAL DESIGN ENGINEER Mitch W L ee [facility] CPT-00047 Level 3 Est. Patient 22:15:50 CDT Mitch W L ee [facility] CPT-85746 Level 3 Est. Patient 10:48:15 CDT Mitch W L ee [facility] CPT-17109 Level 3 Est. Patient 23:20:57 CDT Tavo toure MD [facility]-79284 Level 3 Est. Patient 16:26:13 CDT Mitch luis DO [facility] Procedures Code Procedure Name Date Entry Date Standard Desc ription CPT-26663 PT/INR - LAB USE ONLY 13:32:49 PRODUCTS MECHANICAL DESIGN ENGINEER CPT-16201 Venipuncture Draw Fee 13:32:49 PRODUCTS MECHANICAL DESIGN ENGINEER CPT-39112 PT/INR - LAB USE ONLY 10:34:49 PRODUCTS MECHANICAL DESIGN ENGINEER CPT-15001 Venipuncture Draw Fee 10:34:48 PRODUCTS MECHANICAL DESIGN ENGINEER CPT-45567 PT/INR - LAB USE ONLY 09:22:03 PRODUCTS MECHANICAL DESIGN ENGINEER CPT-87994 Venipuncture Draw Fee 09:22:02 PRODUCTS MECHANICAL DESIGN ENGINEER CPT-29934 Hemoccult IFOBT - LAB USE ONLY 10:27:22 CDT CPT-30574 Venipuncture Draw Fee 08:27:08 CDT CPT-01909 Liver Profile - LAB USE ONLY 08:27:07 CDT 2 CPT-85649 Microalbumin - LAB USE ONLY 08:27:07 CDT 20 25/05/09 CPT-67757 PT/INR - LAB USE ONLY 08:27:07 CDT CPT-92414 HGBA1C - LAB USE ONLY 08:27:07 CDT CPT-20571 CBC - LAB USE ONLY 08:27:07 CDT CPT-63276 Venipuncture Draw Fee 11:09:14 CDT CPT-02905 Venipuncture Draw Fee 08:32:21 PRODUCTS MECHANICAL DESIGN ENGINEER CPT-69692 Venipuncture Draw Fee 09:38:56 PRODUCTS MECHANICAL DESIGN ENGINEER CPT-53239 No Charge Offi Visit 21:36:07 CDT 1 CPT-19441 Venipuncture Draw Fee 10:13:28 PRODUCTS MECHANICAL DESIGN ENGINEER CPT-50473 Venipuncture Draw Fee 08:31:11 CDT CPT-99699 Aspir/Inject Med Joint 18:17:28 CDT CPT-01903 Venipuncture Draw Fee 10:13:30 CDT CPT-36010 Venipuncture Draw Fee 08:31:43 PRODUCTS MECHANICAL DESIGN ENGINEER CPT-JTINJ Joint Injection 18:34:50 CDT CPT-37553 Knee 3V 12:25:09 CDT CPT-82485 Venipuncture Draw Fee 12:15:57 CDT CPT-060 Medical Surveillance Exam 21:31:43 CDT 2011 CPT-32729 Venipuncture Draw Fee 08:32:05 PRODUCTS MECHANICAL DESIGN ENGINEER CPT-OV Office Visit 18:19:06 CDT
--- OUTSIDE RECORDS SUMMARY | 2020-01-18 13:11 | XMS REPORT | Clinical Summary ---
Author Author Admin, Mitch Leon Organization [facility] [employer] Address Unknown Phone Unavailable Allergies, Adverse [...] Coronary atherosclerosis of unspecified type of vessel, [place] or graft EDEMA 782.3 Resolved Mitch Urbina [...] tab to equal 7mg daily WARFARIN SODIUM 59994939455 Active Kathie Juan RPT,R MA Active COLCRYS 0.6 MG TABS 1 tab qid prn gout COLCHICINE 88158030647 Active Kathie Juan RPT,RMA Active INVOKANA 100 MG ORAL TABS 1 tablet orally daily CANAGLIFLOZIN 64683307058 Active Kathie Juan RPT,RMA Active MINOXIDIL 2.5 MG TABS 1 tablet daily for high blood pressure 10/23 MINOXIDIL 86812016691 Active Mitch Urbina DO Active AMLODIPINE BESYLATE 5 MG TABS 1 tablet by mouth daily AMLODIPINE BESYLATE 31781137011 Active Domi Rivera MA Active MECLIZINE HCL 25 MG TAB 1 po tid 3 days, then 1/2 tab tid 3 days MECLIZINE HCL 93427670949 No Longer Active Corey SEGURA Active ALLOPURINOL 300 MG TABS Take 1 tablet by mouth daily 2 ALLOPURINOL 32100262967 No Longer Active Corey SEGURA Activ e CLONIDINE HCL 0.1 MG TABS 1 po bid 7 days, then 1/2 tab po b id 7 days CLONIDINE HCL 06635686886 No Longer Active Corey SEGURA Active COUMADIN 5 MG TABS 1 tab PO daily WARFARIN SODIUM 76008462149 Active Domi Rivera MA Active COUMADIN 4 MG TABS 1 tablet daily WARFARIN SODI UM 58921590813 No Longer Active Corey SEGURA Active POLYTRIM 99390-8.1 UNIT/ML-% SOLN 1 drop in affected e ye every 3 hours while awake x 7 days POLYMYXIN B-TRIMETHOPRIM 40563106286 N o Longer Active Corey SEGURA Active LOSARTAN POTASSIUM-HCTZ 100-12.5 MG TABS 1 by mouth da [place] for high blood pressure LOSARTAN POTASSIUM-HCTZ 30703422493 Active Domi Rivera MA Active LISINOPRIL-HYDROCHLOROTHIAZIDE 20-12.5 MG TABS 1 tab by mouth da rocky LISINOPRIL-HYDROCHLOROTHIAZIDE 96901261450 No Longer Active Mitch luis DO Active LISINOPRIL 20 MG TABS 1 tab po at HS LISINOPRIL 51082962068 No Longer Active Mitch Urbina DO Active COUMADIN 5 MG TABS 1 by mouth every other day WARFARIN SODIUM 60908916563 No Longer Active Mitch Urbina DO Active COUMADIN 6 MG TABS 1 by mouth every other day WARFARIN SODIUM 82004937513 No Longer Active Mitch Urbina DO Active SIMVASTATIN 40 MG TABS 1 tab daily at bedtime S IMVASTATIN 28326402264 Active Domi Rivera MA Active SIMVASTATIN 20 MG TABS 1 tab daily at bedtime S IMVASTATIN 48547554470 No Longer Active Mitch Urbina DO Active LOVENOX 100 MG/ML SC SOLN One injection twice a day 09/15/15 ENOXAPARIN SODIUM 72338321209 No Longer Active Carmine Yusuf MD A ctive JANUVIA 50 MG TABS Take one by mouth daily DIEGO GLIPTIN PHOSPHATE 46898230331 Active Tavo Hilton MD Active JANUVIA 100 MG TABS 1/2 by mouth every day DIEGO GLIPTIN PHOSPHATE 26232932897 No Longer Active Bijal Segal RN Active METFORMIN HCL 500 MG TABS 2 by mouth twice daily METFORMIN HCL 70127251638 Active Mitch Urbina DO Active GLIMEPIRIDE 4 MG TABS 1 tab po bid GLIMEPIRIDE 056383 48010 Active Mitch Urbina DO Active COLCRYS 0.6 MG TABS 1 po q 6 hours prn gout pain 03/02 COLCHICINE 88266184064 No Longer Active Camila Reese Active LISINOPRIL 5 MG TABS 1 by mouth every day LISIN OPRIL 33380443447 No Longer Active Nguyen Perez Active KLOR-CON 20 MEQ PACK Take one by mouth daily 8 POTASSIUM CHLORIDE 13257716017 No Longer Active Nguyen Perez Active FUROSEMIDE 40 MG TABS 1 by mouth daily FUROSEMI DE 03874599543 No Longer Active Nguyen Perez Active PROVIGIL 200 MG TABS 1/2 tab po q day MODAFINIL 51773 999724 Active Curly Coker MD Active PROVIGIL 100 MG TABS Take one by mouth daily MO DAFINIL 70026581643 No Longer Active Mitch Urbina DO Active BACTRIM DS 800-160 MG TAB 1 tab by mouth twice daily 2 TRIMETHOPRIM-SULFAMETHOXAZOLE 50790004055 No Longer Active Renan Hays MD Active FAMOTIDINE 20 MG TABS by mouth twice a day FAMOTI DINE 26175999869 Active Mitch Urbina DO Active ADULT ASPIRIN LOW STRENGTH 81 MG TBDP 1 by mouth every daily ASPIRIN 66811543806 Active Mitch Urbina DO Active METOPROLOL TARTRATE 50 MG TABS 1 by mouth twice daily METOPROLOL TARTRATE 52331497558 Active Domi Rivera MA Active BACTRIM DS 800-160 MG TAB 1 tab by mouth twice daily 2 BACTRIM DS 800-160 MG TAB 314308 TRIMETHOPRIM-SULFAMETHOXAZOLE Inac tive PROVIGIL 100 MG TABS Take one by mouth daily 4 PROVIGIL 100 MG TABS 196770 MODAFINIL Inactive FUROSEMIDE 40 MG TABS 1 by mouth daily FU ROSEMIDE 40 MG TABS 007997 FUROSEMIDE Inactive KLOR-CON 20 MEQ PACK Take one by mouth daily 8 KLOR-CON 20 MEQ PACK 255168 POTASSIUM CHLORIDE Inactive LISINOPRIL 5 MG TABS 1 by mouth every day LISINOPRIL 5 MG TABS 673383 LISINOPRIL Inactive COLCRYS 0.6 MG TABS 1 po q 6 hours prn gout pain 03/02 COLCRYS 0.6 MG TABS 346523 COLCHICINE Inactive JANUVIA 100 MG TABS 1/2 by mouth every day JANUVI A 100 MG TABS SITAGLIPTIN PHOSPHATE Inactive SIMVASTATIN 20 MG TABS 1 tab daily at bedtime SIMVASTATIN 20 MG TABS 256529 SIMVASTATIN Inactive COUMADIN 6 MG TABS 1 by mouth every other day COUMADIN 6 MG TABS 503867 WARFARIN SODIUM Inactive COUMADIN 5 MG TABS 1 by mouth every other day COUMADIN 5 MG TABS 672771 WARFARIN SODIUM Inactive LISINOPRIL 20 MG TABS 1 tab po at HS KOKI NOPRIL 20 MG TABS 958199 LISINOPRIL Inactive LISINOPRIL-HYDROCHLOROTHIAZIDE 20-12.5 MG TABS 1 tab by mouth da [place] LISINOPRIL-HYDROCHLOROTHIAZIDE 20-12.5 MG TABS 176138 LISINOPRIL-HYDROCHLOROTHIAZIDE Inactive POLYTRIM 19572-9.1 UNIT/ML-% SOLN 1 drop in affected e ye every 3 hours while awake x 7 days POLYTRIM 75420-3.1 UNIT/ML-% SOLN 42068 7 POLYMYXIN B-TRIMETHOPRIM Inactive COUMADIN 4 MG TABS 1 tablet daily COUMADIN 4 MG TABS 251237 WARFARIN SODIUM Inactive CLONIDINE HCL 0.1 MG TABS 1 po bid 7 days, then 1/2 tab po b id 7 days CLONIDINE HCL 0.1 MG TABS 666068 CLONIDINE HCL I nactive ALLOPURINOL 300 MG TABS Take 1 tablet by mouth daily 2 ALLOPURINOL 300 MG TABS 023006 ALLOPURINOL Inactive MECLIZINE HCL 25 MG TAB 1 po tid 3 days, then 1/2 tab tid 3 days MECLIZINE HCL 25 MG TAB 268855 MECLIZINE HCL Inactive LOVENOX 100 MG/ML SC SOLN One injection twice a day 20 09/15/15 LOVENOX 100 MG/ML SC SOLN 957368 ENOXAPARIN SODIUM Inactive Vital Signs Date Name [...] - Chem istry sodium, serum 136 mmol/L 328-614 8966/01/14 carbon dioxide, venous blood 25.4 mmol/L 21.0-32 [...] CBC - Chemistry cholesterol, serum 136 mg/dL 282-846 1443/08/09 triglyceride, serum, fasting 187 mg/dL 30-200 HDL [...] 1.0-3.5 Encounters Code Encounter Date Provider Facility CPT-67697 Level 3 Est. Patient 09:34:30 LICENSED PSYCHOLOGIST Mitch luis DO [facility] CPT-08015 Level 3 Est. Patient 09:37:15 CDT Mitch W L ee DO [facility] CPT-32176 Level 3 Est. Patient 17:01:00 LICENSED PSYCHOLOGIST Mitch W L ee DO [facility] CPT-65019 Level 3 Est. Patient 13:53:19 LICENSED PSYCHOLOGIST Mitch W L ee [facility] CPT-71195 Level 3 Est. Patient 19:19:37 LICENSED PSYCHOLOGIST Mitch W L janelle DO [facility] CPT-51353 Level 3 Est. Patient 13:25:53 LICENSED PSYCHOLOGIST Tavo toure MD [facility]-36217 Level 3 Est. Patient 18:17:28 CDT Mitch W L ee [facility] CPT-82649 Level 3 Est. Patient 15:22:57 CDT Mitch W L janelle [facility] CPT-86941 Level 3 Est. Patient 18:21:50 CDT Mitch W L janelle [facility]-16080 Level 3 Est. Patient 18:20:38 CDT Mitch W L ee [facility] CPT-20211 Level 3 Est. Patient 15:37:55 CDT Mitch W L ee [facility] CPT-79392 Level 2 Est. Patient 15:54:44 CDT Carmine benton MD -51154 Level 3 Est. Patient 21:46:01 LICENSED PSYCHOLOGIST Mitch W L janelle DO [facility] CPT-06074 Level 3 Est. Patient 22:15:50 CDT Mitch W L ee [facility] CPT-84489 Level 3 Est. Patient 10:48:15 CDT Mitch W L ee [facility] CPT-80956 Level 3 Est. Patient 23:20:57 CDT Tavo toure MD [facility]-75213 Level 3 Est. Patient 16:26:13 CDT Mitch luis [facility] Procedures Code Procedure Name Date Entry Date Standard Desc ription CPT-75401 Venipuncture Draw Fee 08:27:08 CDT CPT-84657 Liver Profile - LAB USE ONLY 08:27:07 CDT 2 CPT-45437 Microalbumin - LAB USE ONLY 08:27:07 CDT 20 25/05/09 CPT-94310 PT/INR - LAB USE ONLY 08:27:07 CDT CPT-50648 HGBA1C - LAB USE ONLY 08:27:07 CDT CPT-03605 CBC - LAB USE ONLY 08:27:07 CDT CPT-77456 Venipuncture Draw Fee 11:09:14 CDT CPT-82026 Venipuncture Draw Fee 08:32:21 LICENSED PSYCHOLOGIST CPT-29756 Venipuncture Draw Fee 09:38:56 LICENSED PSYCHOLOGIST CPT-66203 No Charge Offi Visit 21:36:07 CDT 1 CPT-33204 Venipuncture Draw Fee 10:13:28 LICENSED PSYCHOLOGIST CPT-14897 Venipuncture Draw Fee 08:31:11 CDT CPT-71178 Aspir/Inject Med Joint 18:17:28 CDT CPT-23576 Venipuncture Draw Fee 10:13:30 CDT CPT-82491 Venipuncture Draw Fee 08:31:43 LICENSED PSYCHOLOGIST CPT-JTINJ Joint Injection 18:34:50 CDT CPT-93298 Knee 3V 12:25:09 CDT CPT-98455 Venipuncture Draw Fee 12:15:57 CDT CPT-060 Medical Surveillance Exam 21:31:43 CDT 2011 CPT-17506 Venipuncture Draw Fee 08:32:05 LICENSED PSYCHOLOGIST CPT-OV Office Visit 18:19:06 CDT
--- OUTSIDE RECORDS SUMMARY | 2020-01-18 13:11 | XMS REPORT | Clinical Summary ---
Author Author Admin, Mitch Leon Organization [facility] Address Unknown Phone Unavailable Allergies, Adverse [...] MG ORAL TABS 1 po BID GLIMEPIRIDE 78682 638502 Active Ana Wallace Active KEFLEX 500 MG CAP 1 po qid CEPHALEXIN 835400550 20 No Longer Active Mitch Urbina DO Active LOSARTAN POTASSIUM 100 MG TABS 1 pill by mouth daily, for bl ood pressure LOSARTAN POTASSIUM 92768198453 Active Ana Wallace Active AMLODIPINE BESYLATE 5 MG TABS 1 tablet by mouth daily AMLODIPINE BESYLATE 06042859766 No Longer Active Joe Williamson APRN Active MITIGARE 0.6 MG ORAL CAPS 2 capsules at onset of gout pain, then take one capsule at 1 hour if symptoms persist. COLCHICINE 59 943053309 Active Mitch Urbina DO Active COUMADIN 1 MG TAB 2 tabs orally daily with the 5mg tab to equal 7mg daily WARFARIN SODIUM 35767466990 Active Mitch Urbina DO Active COLCRYS 0.6 MG TABS 1 tab qid prn gout COLCHICINE 84779567156 Active Norma Cazares Active INVOKANA 100 MG ORAL TABS 1 tablet orally daily CANAGLIFLOZIN 52456109240 Active Mitch Urbina DO Active MINOXIDIL 2.5 MG TABS 1 tablet daily for high blood pressure 10/23 MINOXIDIL 93305485212 Active Mitch Urbina DO Active MECLIZINE HCL 25 MG TAB 1 po tid 3 days, then 1/2 tab tid 3 days MECLIZINE HCL 09192194279 No Longer Active Corey SEGURA Active ALLOPURINOL 300 MG TABS Take 1 tablet by mouth daily 2 ALLOPURINOL 20074503550 No Longer Active Corey SEGURA Activ e CLONIDINE HCL 0.1 MG TABS 1 po bid 7 days, then 1/2 tab po b id 7 days CLONIDINE HCL 95605463659 No Longer Active Corey SEGURA Active COUMADIN 5 MG TABS 1 tab PO daily WARFARIN SODIUM 20328382093 Active Mitch Urbina DO Active COUMADIN 4 MG TABS 1 tablet daily WARFARIN SODI UM 88864665588 No Longer Active Corey SEGURA Active POLYTRIM 10238-4.1 UNIT/ML-% SOLN 1 drop in affected e ye every 3 hours while awake x 7 days POLYMYXIN B-TRIMETHOPRIM 55668178342 N o Longer Active Corey SEGURA Active LOSARTAN POTASSIUM-HCTZ 100-12.5 MG TABS 1 by mouth [place] for high blood pressure LOSARTAN POTASSIUM-HCTZ 32937894778 No Longer A ctive Mitch Urbina DO Active LISINOPRIL-HYDROCHLOROTHIAZIDE 20-12.5 MG TABS 1 tab by mouth [place] LISINOPRIL-HYDROCHLOROTHIAZIDE 45639004768 No Longer Active Mitch luis DO Active LISINOPRIL 20 MG TABS 1 tab po at HS LISINOPRIL 34841459556 No Longer Active Mitch Urbina DO Active COUMADIN 5 MG TABS 1 by mouth every other day WARFARIN SODIUM 30872747270 No Longer Active Mitch Urbina DO Active COUMADIN 6 MG TABS 1 by mouth every other day WARFARIN SODIUM 77665227354 No Longer Active Mitch Urbina DO Active SIMVASTATIN 40 MG TABS 1 tab daily at bedtime S IMVASTATIN 30966878270 Active Mitch Urbina DO Active SIMVASTATIN 20 MG TABS 1 tab daily at bedtime S IMVASTATIN 99789548647 No Longer Active Mitch Urbina DO Active LOVENOX 100 MG/ML SC SOLN One injection twice a day 09/15/15 ENOXAPARIN SODIUM 87320677243 No Longer Active Carmine Yusuf MD A ctive JANUVIA 50 MG TABS Take one by mouth daily DIEGO GLIPTIN PHOSPHATE 57047640494 Active Mitch Urbina DO Active JANUVIA 100 MG TABS 1/2 by mouth every day DIEGO GLIPTIN PHOSPHATE 81215677438 No Longer Active Bijal Segal RN Active METFORMIN HCL 500 MG TABS 2 by mouth twice daily METFORMIN HCL 46257532998 Active Mitch Urbina DO Active COLCRYS 0.6 MG TABS 1 po q 6 hours prn gout pain 03/02 COLCHICINE 43441647220 No Longer Active Camila Reese Active LISINOPRIL 5 MG TABS 1 by mouth every day LISIN OPRIL 87996384427 No Longer Active Nguyen Perez Active KLOR-CON 20 MEQ PACK Take one by mouth daily 8 POTASSIUM CHLORIDE 92954097395 No Longer Active Nguyen Perez Active FUROSEMIDE 40 MG TABS 1 by mouth daily FUROSEMI DE 09292693112 No Longer Active Nguyen Perez Active PROVIGIL 200 MG TABS 1/2 tab po q day MODAFINIL 80086 567728 Active Mitch Urbina DO Active PROVIGIL 100 MG TABS Take one by mouth daily MO DAFINIL 24027050413 No Longer Active Mitch Urbina DO Active BACTRIM DS 800-160 MG TAB 1 tab by mouth twice daily 2 TRIMETHOPRIM-SULFAMETHOXAZOLE 33366570159 No Longer Active Renan Hays MD Active FAMOTIDINE 20 MG TABS by mouth twice a day FAMOTI DINE 23443967120 Active Mitch Urbina DO Active ADULT ASPIRIN LOW STRENGTH 81 MG TBDP 1 by mouth every daily ASPIRIN 08168384229 Active Mitch Urbina DO Active METOPROLOL TARTRATE 50 MG TABS 1 by mouth twice daily METOPROLOL TARTRATE 48338442203 Active Mitch Urbina DO Active BACTRIM DS 800-160 MG TAB 1 tab by mouth twice daily 2 BACTRIM DS 800-160 MG TAB 257329 TRIMETHOPRIM-SULFAMETHOXAZOLE Inac tive PROVIGIL 100 MG TABS Take one by mouth daily 4 PROVIGIL 100 MG TABS 595845 MODAFINIL Inactive FUROSEMIDE 40 MG TABS 1 by mouth daily FU ROSEMIDE 40 MG TABS 596839 FUROSEMIDE Inactive KLOR-CON 20 MEQ PACK Take one by mouth daily 8 KLOR-CON 20 MEQ PACK POTASSIUM CHLORIDE Inactive LISINOPRIL 5 MG TABS 1 by mouth every day LISINOPRIL 5 MG TABS 245422 LISINOPRIL Inactive COLCRYS 0.6 MG TABS 1 po q 6 hours prn gout pain 03/02 COLCRYS 0.6 MG TABS 273886 COLCHICINE Inactive JANUVIA 100 MG TABS 1/2 by mouth every day JANUVI A 100 MG TABS SITAGLIPTIN PHOSPHATE Inactive SIMVASTATIN 20 MG TABS 1 tab daily at bedtime SIMVASTATIN 20 MG TABS 316366 SIMVASTATIN Inactive COUMADIN 6 MG TABS 1 by mouth every other day COUMADIN 6 MG TABS 491067 WARFARIN SODIUM Inactive COUMADIN 5 MG TABS 1 by mouth every other day COUMADIN 5 MG TABS 516975 WARFARIN SODIUM Inactive LISINOPRIL 20 MG TABS 1 tab po at HS KOKI NOPRIL 20 MG TABS 197308 LISINOPRIL Inactive LISINOPRIL-HYDROCHLOROTHIAZIDE 20-12.5 MG TABS 1 tab by mouth da [place] LISINOPRIL-HYDROCHLOROTHIAZIDE 20-12.5 MG TABS 370043 LISINOPRIL-HYDROCHLOROTHIAZIDE Inactive POLYTRIM 92548-5.1 UNIT/ML-% SOLN 1 drop in affected e ye every 3 hours while awake x 7 days POLYTRIM 23619-1.1 UNIT/ML-% SOLN 29276 7 POLYMYXIN B-TRIMETHOPRIM Inactive COUMADIN 4 MG TABS 1 tablet daily COUMADIN 4 MG TABS 279633 WARFARIN SODIUM Inactive CLONIDINE HCL 0.1 MG TABS 1 po bid 7 days, then 1/2 tab po b id 7 days CLONIDINE HCL 0.1 MG TABS 636595 CLONIDINE HCL I nactive ALLOPURINOL 300 MG TABS Take 1 tablet by mouth daily 2 ALLOPURINOL 300 MG TABS 948996 ALLOPURINOL Inactive MECLIZINE HCL 25 MG TAB 1 po tid 3 days, then 1/2 tab tid 3 days MECLIZINE HCL 25 MG TAB 456584 MECLIZINE HCL Inactive AMLODIPINE BESYLATE 5 MG TABS 1 tablet by mouth daily AMLODIPINE BESYLATE 5 MG TABS 410290 AMLODIPINE BESYLATE Inactive KEFLEX 500 MG CAP 1 po qid KEFLEX 500 MG CAP 30 9114 CEPHALEXIN Inactive LOVENOX 100 MG/ML SC SOLN One injection twice a day 09/15/15 LOVENOX 100 MG/ML SC SOLN 663779 ENOXAPARIN SODIUM Inactive Vital Signs Date Name [...] - Chem istry sodium, serum 139 mmol/L 851-394 4804/07/17 potassium, serum 4.2 mmol/L 3.5-5.2 chloride, serum 102 mmol/L 98-107 carbon dioxide, venous blood 28.9 mmol/L 21.0-32 .0 blood glucose 211 mg/dL 65-110 calcium, serum 10.6 mg/dL 8.5-10.1 urea nitrogen, blood 29 mg/dL 7-18 creatinine, serum 1.24 mg/dL 0.60-1.30 sodium, serum 141 mmol/L 936-049 8692/08/07 potassium, serum 4.5 mmol/L 3.5-5.2 chloride, serum [...] ... - Chemistry sodium, serum 144 mmol/L 298-868 3420/06/12 carbon dioxide, venous blood 26.6 mmol/L 21.0-32 [...] 1.0-3.5 Encounters Code Encounter Date Provider Facility CPT-36179 Level 3 Est. Patient 18:25:53 CDT Mitch luis [facility] CPT-12445 Level 3 Est. Patient 19:43:34 CDT Mitch luis [facility] CPT-91149 Level 4 Est. Patient 09:30:18 CDT Mitch luis [facility] CPT-38325 Level 3 Est. Patient 15:10:14 CDT Joe Jason anh [facility] CPT-55700 Level 3 Est. Patient 15:03:46 CDT Joe Jason anh [facility] CPT-99068 Level 3 Est. Patient 14:21:06 CDT Mitch luis [facility] CPT-57093 Level 3 Est. Patient 14:52:06 CDT Joe Jason kamara [facility] CPT-68052 Level 3 Est. Patient 09:34:30 SLOT SHIFT MANAGER Mitch luis [facility] CPT-50033 Level 3 Est. Patient 09:37:15 CDT Mitch luis [facility] CPT-01601 Level 3 Est. Patient 17:01:00 SLOT SHIFT MANAGER Mitch luis [facility] CPT-95670 Level 3 Est. Patient 13:53:19 SLOT SHIFT MANAGER Mitch luis [facility] CPT-81611 Level 3 Est. Patient 19:19:37 SLOT SHIFT MANAGER Mitch luis [facility] CPT-74748 Level 3 Est. Patient 13:25:53 SLOT SHIFT MANAGER Tavo toure MD [facility] CPT-04735 Level 3 Est. Patient 18:17:28 CDT Mitch luis [facility] CPT-05394 Level 3 Est. Patient 15:22:57 CDT Mitch luis [facility] CPT-96296 Level 3 Est. Patient 18:21:50 CDT Mitch luis [facility] CPT-81911 Level 3 Est. Patient 18:20:38 CDT Mitch Arnol luis [facility] CPT-57591 Level 3 Est. Patient 15:37:55 CDT Mitch luis [facility] CPT-04694 Level 2 Est. Patient 15:54:44 CDT Carmine benton MD [facility] CPT-21141 Level 3 Est. Patient 21:46:01 SLOT SHIFT MANAGER Mitch luis [facility] CPT-04240 Level 3 Est. Patient 22:15:50 CDT Mitch luis [facility] CPT-19254 Level 3 Est. Patient 10:48:15 CDT Mitch luis [facility] CPT-96602 Level 3 Est. Patient 23:20:57 CDT Tavo toure MD [facility] CPT-36180 Level 3 Est. Patient 16:26:13 CDT Mitch Arnol luis [facility] Procedures Code Procedure Name Date Entry Date Standard Desc ription CPT-95135 Venipuncture Draw Fee 09:26:17 CDT CPT-57008 PT/INR - LAB USE ONLY 13:32:49 SLOT SHIFT MANAGER CPT-60450 Venipuncture Draw Fee 13:32:49 SLOT SHIFT MANAGER CPT-94179 PT/INR - LAB USE ONLY 10:34:49 SLOT SHIFT MANAGER CPT-36534 Venipuncture Draw Fee 10:34:48 SLOT SHIFT MANAGER CPT-48989 PT/INR - LAB USE ONLY 09:22:03 SLOT SHIFT MANAGER CPT-84948 Venipuncture Draw Fee 09:22:02 SLOT SHIFT MANAGER CPT-75250 Hemoccult IFOBT - LAB USE ONLY 10:27:22 CDT CPT-06151 Venipuncture Draw Fee 08:27:08 CDT CPT-36604 Liver Profile - LAB USE ONLY 08:27:07 CDT 2 CPT-31668 Microalbumin - LAB USE ONLY 08:27:07 CDT 20 25/05/09 CPT-39905 PT/INR - LAB USE ONLY 08:27:07 CDT CPT-11539 HGBA1C - LAB USE ONLY 08:27:07 CDT CPT-48309 CBC - LAB USE ONLY 08:27:07 CDT CPT-99188 Venipuncture Draw Fee 11:09:14 CDT CPT-72516 Venipuncture Draw Fee 08:32:21 SLOT SHIFT MANAGER CPT-07791 Venipuncture Draw Fee 09:38:56 SLOT SHIFT MANAGER CPT-34690 No Charge Offi Visit 21:36:07 CDT 1 CPT-60982 Venipuncture Draw Fee 10:13:28 SLOT SHIFT MANAGER CPT-32385 Venipuncture Draw Fee 08:31:11 CDT CPT-50519 Aspir/Inject Med Joint 18:17:28 CDT CPT-01082 Venipuncture Draw Fee 10:13:30 CDT CPT-76521 Venipuncture Draw Fee 08:31:43 SLOT SHIFT MANAGER CPT-JTINJ Joint Injection 18:34:50 CDT CPT-02246 Knee 3V 12:25:09 CDT CPT-06801 Venipuncture Draw Fee 12:15:57 CDT CPT-060 Medical Surveillance Exam 21:31:43 CDT 2011 CPT-17462 Venipuncture Draw Fee 08:32:05 SLOT SHIFT MANAGER CPT-OV Office Visit 18:19:06 CDT
--- OUTSIDE RECORDS SUMMARY | 2020-01-18 13:12 | XMS REPORT | Clinical Summary ---
Author Author Admin, Mitch Leon Organization [facility] [employer] Address Unknown Phone Unavailable Allergies, Adverse Reactions, [...] Coronary atherosclerosis of unspecified type of vessel, [place] or graft EDEMA 782.3 Resolved [...] by mouth twice a day 2017 FAMOTIDINE 60241235948 No Longer Active Mitch Urbina DO Active COLCRYS 0.6 MG ORAL TABLET 1 tab qid prn gout C OLCHICINE 05550743706 No Longer Active Mitch Urbina DO Active GLIMEPIRIDE 2 MG ORAL TABLET 1 po BID GLIMEPIRID E 97057897383 Active Renee Oconnor TEMPERER Active KEFLEX 500 MG ORAL CAPSULE 1 po qid CEPHALEXI N 35315414925 No Longer Active Mitch Urbina DO Active LOSARTAN POTASSIUM 100 MG ORAL TABLET 1 pill by mouth daily, for blood pressure LOSARTAN POTASSIUM 83868082440 Active Mitch Urbina DO Active AMLODIPINE BESYLATE 5 MG ORAL TABLET 1 tablet by mouth daily 201 01/20/04 AMLODIPINE BESYLATE 11397406320 No Longer Active Joe fulton APRN Active MITIGARE 0.6 MG ORAL CAPSULE 2 capsules at onset of go ut pain, then take one capsule at 1 hour if symptoms persist. COLCHICINE 59 215600205 Active Mitch Urbina DO Active COUMADIN 1 MG ORAL TABLET 2 tabs orally daily with the 5mg tab to equal 7mg daily WARFARIN SODIUM 40412950127 Active Ana Wallace Active INVOKANA 100 MG ORAL TABLET 1 tablet orally daily CANAGLIFLOZIN 08439615475 Active Mitch Urbina DO Active MINOXIDIL 2.5 MG ORAL TABLET 1 tablet daily for high blood press ure MINOXIDIL 63855971610 Active Mitch Urbina DO Active MECLIZINE HCL 25 MG ORAL TABLET 1 po tid 3 days, then 1/2 ta b tid 3 days MECLIZINE HCL 20787264862 No Longer Active Corey SEGURA Active ALLOPURINOL 300 MG ORAL TABLET Take 1 tablet by mouth daily 2012 ALLOPURINOL 60191219957 No Longer Active Corey SEGURA Active CLONIDINE HCL 0.1 MG ORAL TABLET 1 po bid 7 days, then 1/2 t ab po bid 7 days CLONIDINE HCL 05858143837 No Longer Active Corey SEGURA Active COUMADIN 5 MG ORAL TABLET 1 tab PO daily WARFAR IN SODIUM 83281329256 Active Mitch Urbina DO Active COUMADIN 4 MG ORAL TABLET 1 tablet daily WARFAR IN SODIUM 04828251503 No Longer Active Corey SEGURA Active POLYTRIM 46860-2.1 UNIT/ML-% OPHTHALMIC SOLUTION 1 rui p in affected eye every 3 hours while awake x 7 days POLYMYXIN B-TRIMETHOP RIM 89163946656 No Longer Active Corey SEGURA Active LOSARTAN POTASSIUM-HCTZ 100-12.5 MG ORAL TABLET 1 by m outh daily for high blood pressure LOSARTAN POTASSIUM-HCTZ 92345020651 No Longer A ctive Mitch Urbina DO Active LISINOPRIL-HYDROCHLOROTHIAZIDE 20-12.5 MG ORAL TABLET 1 tab by m outh daily LISINOPRIL-HYDROCHLOROTHIAZIDE 32761301184 No Longer Active Mitch Urbina DO Active LISINOPRIL 20 MG ORAL TABLET 1 tab po at HS LIS INOPRIL 55850219786 No Longer Active Mitch Urbina DO Active COUMADIN 5 MG ORAL TABLET 1 by mouth every other day 2 WARFARIN SODIUM 15355501172 No Longer Active Mitch Urbina DO Active COUMADIN 6 MG ORAL TABLET 1 by mouth every other day 2 WARFARIN SODIUM 73136403508 No Longer Active Mitch Urbina DO Active SIMVASTATIN 40 MG ORAL TABLET 1 tab daily at bedtime SIMVASTATIN 10133130723 Active Renee Oconnor LPN Active SIMVASTATIN 20 MG ORAL TABLET 1 tab daily at bedtime 2 SIMVASTATIN 59146108863 No Longer Active Mitch Urbina DO Active LOVENOX 100 MG/ML SUBCUTANEOUS SOLUTION One injection twice a da y ENOXAPARIN SODIUM 25267910445 No Longer Active Carmine Yusuf MD Active JANUVIA 50 MG ORAL TABLET Take one by mouth daily SITAGLIPTIN PHOSPHATE 20400578418 Active Mitch Urbina DO Active JANUVIA 100 MG ORAL TABLET 1/2 by mouth every day 2011 SITAGLIPTIN PHOSPHATE 19397876876 No Longer Active Bijal Segal RN Acti ve METFORMIN HCL 500 MG ORAL TABLET 2 by mouth twice daily METFORMIN HCL 45156740458 Active Mitch Urbina DO Active COLCRYS 0.6 MG ORAL TABLET 1 po q 6 hours prn gout pain COLCHICINE 41960988766 No Longer Active Camila Reese Active LISINOPRIL 5 MG ORAL TABLET 1 by mouth every day 11/17 LISINOPRIL 54699507006 No Longer Active Nguyen Perez Active KLOR-CON 20 MEQ ORAL PACKET Take one by mouth daily 09/10/08 POTASSIUM CHLORIDE 70162243048 No Longer Active Nguyen Perez Active FUROSEMIDE 40 MG ORAL TABLET 1 by mouth daily F UROSEMIDE 78925773367 No Longer Active Nguyen Perez Active PROVIGIL 200 MG ORAL TABLET 1/2 tab po q day MODA FINIL 91453706409 Active Renee Oconnor LPN Active PROVIGIL 100 MG ORAL TABLET Take one by mouth daily 08/20/04 MODAFINIL 14030277762 No Longer Active Mitch Urbina DO Active BACTRIM DS 800-160 MG ORAL TABLET 1 tab by mouth twice daily 201 10/19/09 TRIMETHOPRIM-SULFAMETHOXAZOLE 97240277100 No Longer Active Elian Hays MD Active ADULT ASPIRIN LOW STRENGTH 81 MG ORAL TABLET DISINTEGR ATING 1 by mouth every daily ASPIRIN 97123976695 Active Mitch Urbina DO Ac tive METOPROLOL TARTRATE 50 MG ORAL TABLET 1 by mouth twice daily METOPROLOL TARTRATE 73454268404 Active Mitch Urbina DO Active BACTRIM DS 800-160 MG ORAL TABLET 1 tab by mouth twice daily 201 10/19/09 BACTRIM DS 800-160 MG ORAL TABLET 020826 TRIMETHOPRIM-SULFAMETHOXAZOLE Inactive PROVIGIL 100 MG ORAL TABLET Take one by mouth daily 20 08/20/04 PROVIGIL 100 MG ORAL TABLET 727662 MODAFINIL Inactive FUROSEMIDE 40 MG ORAL TABLET 1 by mouth daily FUROSEMIDE 40 MG ORAL TABLET 414128 FUROSEMIDE Inactive KLOR-CON 20 MEQ ORAL PACKET Take one by mouth daily 09/10/08 KLOR- CON 20 MEQ ORAL PACKET 3986508 POTASSIUM CHLORIDE Inactive LISINOPRIL 5 MG ORAL TABLET 1 by mouth every day 11/17 LISINOPRIL 5 MG ORAL TABLET 521050 LISINOPRIL Inactive COLCRYS 0.6 MG ORAL TABLET 1 po q 6 hours prn gout pain COLCRYS 0.6 MG ORAL TABLET 223743 COLCHICINE Inactive JANUVIA 100 MG ORAL TABLET 1/2 by mouth every day 2011 JANUVIA 100 MG ORAL TABLET SITAGLIPTIN PHOSPHATE Inactive SIMVASTATIN 20 MG ORAL TABLET 1 tab daily at bedtime 2 SIMVASTATIN 20 MG ORAL TABLET 724242 SIMVASTATIN Inactive COUMADIN 6 MG ORAL TABLET 1 by mouth every other day COUMADIN 6 MG ORAL TABLET 526439 WARFARIN SODIUM Inactive COUMADIN 5 MG ORAL TABLET 1 by mouth every other day 2 COUMADIN 5 MG ORAL TABLET 916091 WARFARIN SODIUM Inactive LISINOPRIL 20 MG ORAL TABLET 1 tab po at HS LISINOPRIL 20 MG ORAL TABLET 508605 LISINOPRIL Inactive LISINOPRIL-HYDROCHLOROTHIAZIDE 20-12.5 MG ORAL TABLET 1 tab by m outh daily LISINOPRIL-HYDROCHLOROTHIAZIDE 20-12.5 MG ORAL TABLET 464342 LISINOPRIL-HYDROCHLOROTHIAZIDE Inactive POLYTRIM 66916-8.1 UNIT/ML-% OPHTHALMIC SOLUTION 1 rui p in affected eye every 3 hours while awake x 7 days POLYTRIM 1000 0-0.1 UNIT/ML-% OPHTHALMIC SOLUTION 057540 POLYMYXIN B-TRIMETHOPRIM Inactive COUMADIN 4 MG ORAL TABLET 1 tablet daily COUMADIN 4 MG ORAL TABLET 451842 WARFARIN SODIUM Inactive CLONIDINE HCL 0.1 MG ORAL TABLET 1 po bid 7 days, then 1/2 t ab po bid 7 days CLONIDINE HCL 0.1 MG ORAL TABLET 391543 CLONIDIN E HCL Inactive ALLOPURINOL 300 MG ORAL TABLET Take 1 tablet by mouth daily 2012 ALLOPURINOL 300 MG ORAL TABLET 392587 ALLOPURINOL I nactive MECLIZINE HCL 25 MG ORAL TABLET 1 po tid 3 days, then 1/2 ta b tid 3 days MECLIZINE HCL 25 MG ORAL TABLET 206999 MECLIZINE HCL Inactive AMLODIPINE BESYLATE 5 MG ORAL TABLET 1 tablet by mouth daily 201 01/20/04 AMLODIPINE BESYLATE 5 MG ORAL TABLET 736638 AMLODIPINE BESYLATE Inactive KEFLEX 500 MG ORAL CAPSULE 1 po qid K EFLEX 500 MG ORAL CAPSULE 178306 CEPHALEXIN Inactive COLCRYS 0.6 MG ORAL TABLET 1 tab qid prn gout COLCRYS 0.6 MG ORAL TABLET 166383 COLCHICINE Inactive FAMOTIDINE 20 MG ORAL TABLET by mouth twice a day 2017 FAMOTIDINE 20 MG ORAL TABLET 203769 FAMOTIDINE Inactive LOVENOX 100 MG/ML SUBCUTANEOUS SOLUTION One injection twice a da y LOVENOX 100 MG/ML SUBCUTANEOUS SOLUTION 078076 ENOXAPAR IN SODIUM Inactive Vital Signs Date [...] - Chem istry sodium, serum 139 mmol/L 376-718 5834/07/17 potassium, serum 4.2 mmol/L 3.5-5.2 chloride, serum 102 mmol/L 98-107 carbon dioxide, venous blood 28.9 mmol/L 21.0-32 .0 blood glucose 211 mg/dL 65-110 calcium, serum 10.6 mg/dL 8.5-10.1 urea nitrogen, blood 29 mg/dL 7-18 creatinine, serum 1.24 mg/dL 0.60-1.30 sodium, serum 141 mmol/L 498-017 1774/08/07 potassium, serum 4.5 mmol/L 3.5-5.2 chloride, serum 102 mmol/L 98-107 carbon dioxide, venous blood 31.7 mmol/L 21.0-32 .0 blood glucose 117 mg/dL 65-110 calcium, serum 10.5 mg/dL 8.5-10.1 urea nitrogen, blood 26 mg/dL 7-18 creatinine, serum 1.15 mg/dL 0.60-1.30 Lab Report: Lipid Panel, HEPATIC PANEL, HGBA1C - Chemistry cholesterol, serum 136 mg/dL 883-123 7161/12/06 triglyceride, serum, fasting 247 mg/dL 30-200 HDL cholesterol, serum 41 mg/dL 32-60 LDL cholesterol, serum 46 mg/dL 0-130 aspartate aminotransferase (SGOT), serum 22 U/L 15-37 alanine aminotransferase (SGPT), serum 30 U/L 12-78 bilirubin, serum, total 0.80 mg/dL 0.00-1.00 hemoglobin A1C, blood, as % of total hemoglobin 6.4 % 4.3-6.0 Encounters Code Encounter Date Provider Facility CPT-32565 Level 3 Est. Patient 18:25:53 CDT Mitch luis [facility] CPT-76178 Level 3 Est. Patient 19:43:34 CDT Mitch luis [facility] CPT-79993 Level 4 Est. Patient 09:30:18 CDT Mitch luis [facility] CPT-00617 Level 3 Est. Patient 15:10:14 CDT Joe kamara [facility] CPT-55842 Level 3 Est. Patient 15:03:46 CDT Joe kamara [facility] CPT-27631 Level 3 Est. Patient 14:21:06 CDT Mitch Arnol Nona luis [facility] CPT-46729 Level 3 Est. Patient 14:52:06 CDT Joe kamara [facility] CPT-11655 Level 3 Est. Patient 09:34:30 WEASAND TRIMMER Mitch Arnol Nona luis [facility] CPT-17256 Level 3 Est. Patient 09:37:15 CDT Mitch luis [facility] CPT-33314 Level 3 Est. Patient 17:01:00 WEASAND TRIMMER Mitch luis [facility] CPT-00789 Level 3 Est. Patient 13:53:19 WEASAND TRIMMER Mitch luis [facility] CPT-96610 Level 3 Est. Patient 19:19:37 WEASAND TRIMMER Mitch luis [facility] CPT-54969 Level 3 Est. Patient 13:25:53 WEASAND TRIMMER Tavo toure MD [facility] CPT-70102 Level 3 Est. Patient 18:17:28 CDT Mitch Arnol luis [facility] CPT-70841 Level 3 Est. Patient 15:22:57 CDT Mitch Arnol luis [facility] CPT-14946 Level 3 Est. Patient 18:21:50 CDT Mitch luis [facility] CPT-14214 Level 3 Est. Patient 18:20:38 CDT Mitch Arnol luis [facility] CPT-92240 Level 3 Est. Patient 15:37:55 CDT Mitch Arnol luis [facility] CPT-37961 Level 2 Est. Patient 15:54:44 CDT Carmine benton MD [facility] CPT-99449 Level 3 Est. Patient 21:46:01 WEASAND TRIMMER Mitch luis [facility] CPT-19289 Level 3 Est. Patient 22:15:50 CDT Mitch luis [facility] CPT-13639 Level 3 Est. Patient 10:48:15 CDT Mitch luis [facility] CPT-73483 Level 3 Est. Patient 23:20:57 CDT Tavo toure MD [facility] CPT-82182 Level 3 Est. Patient 16:26:13 CDT Mitch luis [facility] Procedures Code Procedure Name Date Entry Date Standard Desc ription CPT-JTINJ Asp/Joint Injection 18:47:02 CDT CPT-35821 Venipuncture Draw Fee 09:26:17 CDT CPT-66139 PT/INR - LAB USE ONLY 13:32:49 WEASAND TRIMMER CPT-10510 Venipuncture Draw Fee 13:32:49 WEASAND TRIMMER CPT-77426 PT/INR - LAB USE ONLY 10:34:49 WEASAND TRIMMER CPT-37665 Venipuncture Draw Fee 10:34:48 WEASAND TRIMMER CPT-53775 PT/INR - LAB USE ONLY 09:22:03 WEASAND TRIMMER CPT-59722 Venipuncture Draw Fee 09:22:02 WEASAND TRIMMER CPT-76789 Hemoccult IFOBT - LAB USE ONLY 10:27:22 CDT CPT-42995 Venipuncture Draw Fee 08:27:08 CDT CPT-84287 Liver Profile - LAB USE ONLY 08:27:07 CDT 2 CPT-01108 Microalbumin - LAB USE ONLY 08:27:07 CDT 20 25/05/09 CPT-75940 PT/INR - LAB USE ONLY 08:27:07 CDT CPT-91374 HGBA1C - LAB USE ONLY 08:27:07 CDT CPT-10650 CBC - LAB USE ONLY 08:27:07 CDT CPT-06808 Venipuncture Draw Fee 11:09:14 CDT CPT-05536 Venipuncture Draw Fee 08:32:21 WEASAND TRIMMER CPT-07183 Venipuncture Draw Fee 09:38:56 WEASAND TRIMMER CPT-65969 No Charge Offi Visit 21:36:07 CDT 1 CPT-77151 Venipuncture Draw Fee 10:13:28 WEASAND TRIMMER CPT-26514 Venipuncture Draw Fee 08:31:11 CDT CPT-19953 Aspir/Inject Med Joint 18:17:28 CDT CPT-69167 Venipuncture Draw Fee 10:13:30 CDT CPT-05374 Venipuncture Draw Fee 08:31:43 WEASAND TRIMMER CPT-JTINJ Joint Injection 18:34:50 CDT CPT-61430 Knee 3V 12:25:09 CDT CPT-12906 Venipuncture Draw Fee 12:15:57 CDT CPT-060 Medical Surveillance Exam 21:31:43 CDT 2011 CPT-95985 Venipuncture Draw Fee 08:32:05 WEASAND TRIMMER CPT-OV Office Visit 18:19:06 CDT
--- OUTSIDE RECORDS SUMMARY | 2020-01-18 13:12 | XMS REPORT | Clinical Summary ---
Author Author Admin, Mitch Leon Organization [facility] Address Unknown Phone Unavailable Allergies, Adverse Reactions, [...] Coronary atherosclerosis of unspecified type of vessel, [place] or graft EDEMA 782.3 Resolved Mitch Urbina [...] 1 hour if symptoms persist. COLCHICINE 59 917638916 Active Mitch Urbina DO Active COUMADIN 1 MG TAB 2 tabs orally daily with the 5mg tab to equal 7mg daily WARFARIN SODIUM 97390639873 Active Norma Cazares Active COLCRYS 0.6 MG TABS 1 tab qid prn gout COLCHICINE 59522014456 Active Norma Cazares Active INVOKANA 100 MG ORAL TABS 1 tablet orally daily CANAGLIFLOZIN 62942252402 Active Mitch Urbina DO Active MINOXIDIL 2.5 MG TABS 1 tablet daily for high blood pressure 10/23 MINOXIDIL 25384191913 Active Domi Rivera MA Active AMLODIPINE BESYLATE 5 MG TABS 1 tablet by mouth daily AMLODIPINE BESYLATE 58706254995 Active Mitch Urbina DO Active MECLIZINE HCL 25 MG TAB 1 po tid 3 days, then 1/2 tab tid 3 days MECLIZINE HCL 69940932348 No Longer Active Corey SEGURA Active ALLOPURINOL 300 MG TABS Take 1 tablet by mouth daily 2 ALLOPURINOL 91938881660 No Longer Active Corey SEGURA Activ e CLONIDINE HCL 0.1 MG TABS 1 po bid 7 days, then 1/2 tab po b id 7 days CLONIDINE HCL 70475483369 No Longer Active Corey SEGURA Active COUMADIN 5 MG TABS 1 tab PO daily WARFARIN SODIUM 43393178376 Active Mitch Urbina DO Active COUMADIN 4 MG TABS 1 tablet daily WARFARIN SODI UM 13837506856 No Longer Active Corey SEGURA Active POLYTRIM 69288-1.1 UNIT/ML-% SOLN 1 drop in affected e ye every 3 hours while awake x 7 days POLYMYXIN B-TRIMETHOPRIM 44525871254 N o Longer Active Corey SEGURA Active LOSARTAN POTASSIUM-HCTZ 100-12.5 MG TABS 1 by mouth da [place] for high blood pressure LOSARTAN POTASSIUM-HCTZ 18955103473 Active Stephy Urbina DO Active LISINOPRIL-HYDROCHLOROTHIAZIDE 20-12.5 MG TABS 1 tab by mouth da [place] LISINOPRIL-HYDROCHLOROTHIAZIDE 70946342954 No Longer Active Mitch luis DO Active LISINOPRIL 20 MG TABS 1 tab po at HS LISINOPRIL 49099780380 No Longer Active Mitch Urbina DO Active COUMADIN 5 MG TABS 1 by mouth every other day WARFARIN SODIUM 58988886363 No Longer Active Mitch Urbina DO Active COUMADIN 6 MG TABS 1 by mouth every other day WARFARIN SODIUM 04898604875 No Longer Active Mitch Arnol Carlitos DO Active SIMVASTATIN 40 MG TABS 1 tab daily at bedtime S IMVASTATIN 68489827560 Active Mitch Urbina DO Active SIMVASTATIN 20 MG TABS 1 tab daily at bedtime S IMVASTATIN 51734042948 No Longer Active Mitch Urbina DO Active LOVENOX 100 MG/ML SC SOLN One injection twice a day 09/15/15 ENOXAPARIN SODIUM 33733097730 No Longer Active Carmine Navarrete ctive JANUVIA 50 MG TABS Take one by mouth daily [place]IEGO GLIPTIN PHOSPHATE 44352770256 Active Mitch Arnol Carlitos DO Active JANUVIA 100 MG TABS 1/2 by mouth every day DIEGO GLIPTIN PHOSPHATE 34254902474 No Longer Active Bijal Segal RN Active METFORMIN HCL 500 MG TABS 2 by mouth twice daily METFORMIN HCL 20837118256 Active Mitch Arnol Carlitos DO Active GLIMEPIRIDE 4 MG TABS 1 tab po bid GLIMEPIRIDE 125352 78911 Active Mitch Arnol Carlitos DO Active COLCRYS 0.6 MG TABS 1 po q 6 hours prn gout pain 03/02 COLCHICINE 61678784712 No Longer Active Camila Reese Active LISINOPRIL 5 MG TABS 1 by mouth every day LISIN OPRIL 27868258704 No Longer Active Nguyen Perez Active KLOR-CON 20 MEQ PACK Take one by mouth daily 8 POTASSIUM CHLORIDE 81733509548 No Longer Active Nguyenmolly Perez Active FUROSEMIDE 40 MG TABS 1 by mouth daily FUROSEMI DE 31585127227 No Longer Active Nguyen Perez Active PROVIGIL 200 MG TABS 1/2 tab po q day MODAFINIL 29393 676457 Active Kathie Juan RPT,RMA Active PROVIGIL 100 MG TABS Take one by mouth daily MO DAFINIL 10325695070 No Longer Active Mitch Urbina DO Active BACTRIM DS 800-160 MG TAB 1 tab by mouth twice daily 2 TRIMETHOPRIM-SULFAMETHOXAZOLE 21736714348 No Longer Active Renan Hays MD Active FAMOTIDINE 20 MG TABS by mouth twice a day FAMOTI DINE 78972483909 Active Mitch Urbina DO Active ADULT ASPIRIN LOW STRENGTH 81 MG TBDP 1 by mouth every daily ASPIRIN 72523064072 Active Mitch Urbina DO Active METOPROLOL TARTRATE 50 MG TABS 1 by mouth twice daily METOPROLOL TARTRATE 45816631970 Active Mitch Urbina DO Active BACTRIM DS 800-160 MG TAB 1 tab by mouth twice daily 2 BACTRIM DS 800-160 MG TAB 558327 TRIMETHOPRIM-SULFAMETHOXAZOLE Inac tive PROVIGIL 100 MG TABS Take one by mouth daily 4 PROVIGIL 100 MG TABS 228309 MODAFINIL Inactive FUROSEMIDE 40 MG TABS 1 by mouth daily FU ROSEMIDE 40 MG TABS 363096 FUROSEMIDE Inactive KLOR-CON 20 MEQ PACK Take one by mouth daily 8 KLOR-CON 20 MEQ PACK 051940 POTASSIUM CHLORIDE Inactive LISINOPRIL 5 MG TABS 1 by mouth every day LISINOPRIL 5 MG TABS 294320 LISINOPRIL Inactive COLCRYS 0.6 MG TABS 1 po q 6 hours prn gout pain 03/02 COLCRYS 0.6 MG TABS 487666 COLCHICINE Inactive JANUVIA 100 MG TABS 1/2 by mouth every day JANUVI A 100 MG TABS SITAGLIPTIN PHOSPHATE Inactive SIMVASTATIN 20 MG TABS 1 tab daily at bedtime SIMVASTATIN 20 MG TABS 091786 SIMVASTATIN Inactive COUMADIN 6 MG TABS 1 by mouth every other day COUMADIN 6 MG TABS 952169 WARFARIN SODIUM Inactive COUMADIN 5 MG TABS 1 by mouth every other day COUMADIN 5 MG TABS 492057 WARFARIN SODIUM Inactive LISINOPRIL 20 MG TABS 1 tab po at HS [place] NOPRIL 20 MG TABS 596462 LISINOPRIL Inactive LISINOPRIL-HYDROCHLOROTHIAZIDE 20-12.5 MG TABS 1 tab by mouth da [place] LISINOPRIL-HYDROCHLOROTHIAZIDE 20-12.5 MG TABS 210517 LISINOPRIL-HYDROCHLOROTHIAZIDE Inactive POLYTRIM 36724-0.1 UNIT/ML-% SOLN 1 drop in affected e ye every 3 hours while awake x 7 days POLYTRIM 86931-2.1 UNIT/ML-% SOLN 91030 7 POLYMYXIN B-TRIMETHOPRIM Inactive COUMADIN 4 MG TABS 1 tablet daily COUMADIN 4 MG TABS 244500 WARFARIN SODIUM Inactive CLONIDINE HCL 0.1 MG TABS 1 po bid 7 days, then 1/2 tab po b id 7 days CLONIDINE HCL 0.1 MG TABS 389175 CLONIDINE HCL I nactive ALLOPURINOL 300 MG TABS Take 1 tablet by mouth daily 2 ALLOPURINOL 300 MG TABS 854507 ALLOPURINOL Inactive MECLIZINE HCL 25 MG TAB 1 po tid 3 days, then 1/2 tab tid 3 days MECLIZINE HCL 25 MG TAB 846668 MECLIZINE HCL Inactive LOVENOX 100 MG/ML SC SOLN One injection twice a day 09/15/15 LOVENOX 100 MG/ML SC SOLN 760538 ENOXAPARIN SODIUM Inactive Vital Signs Date Name [...] Range Description Chart Maintenance: hemoccult added to [facility] - Chemistry occult blood, stool [...] - Chem istry sodium, serum 136 mmol/L 592-670 5421/01/14 carbon dioxide, venous blood 25.4 mmol/L 21.0-32 [...] CBC - Chemistry cholesterol, serum 136 mg/dL 665-507 7257/08/09 triglyceride, serum, fasting 187 mg/dL 30-200 HDL [...] 1.0-3.5 Encounters Code Encounter Date Provider Facility CPT-75123 Level 3 Est. Patient 14:21:06 CDT Mitch luis [facility] CPT-94690 Level 3 Est. Patient 14:52:06 [facility] Est[facility] Patient 09:34:30 CARPET INSPECTOR Mitch luis [facility] CPT-37719 Level 3 Est. Patient 09:37:15 CDT Mitch luis [facility] CPT-72822 Level 3 Est. Patient 17:01:00 CARPET INSPECTOR Mitch luis [facility] CPT-59717 Level 3 Est. Patient 13:53:19 CARPET INSPECTOR Mitch luis [facility] CPT-48085 Level 3 Est. Patient 19:19:37 CARPET INSPECTOR Mitch luis [facility] CPT-18431 Level 3 Est. Patient 13:25:53 CARPET INSPECTOR Tavo toure MD [facility] CPT-92069 Level 3 Est. Patient 18:17:28 CDT Mitch luis [facility] CPT-07228 Level 3 Est. Patient 15:22:57 CDT Mitch luis [facility] CPT-70792 Level 3 Est. Patient 18:21:50 CDT Mitch luis [facility] CPT-39527 Level 3 Est. Patient 18:20:38 CDT Mitch luis [facility] CPT-05456 Level 3 Est. Patient 15:37:55 CDT Mitch luis [facility] CPT-94297 Level 2 Est. Patient 15:54:44 CDT Carmine benton MD [facility] CPT-85140 Level 3 Est. Patient 21:46:01 CARPET INSPECTOR Mitch luis [facility] CPT-24012 Level 3 Est. Patient 22:15:50 CDT Mitch luis [facility] CPT-00593 Level 3 Est. Patient 10:48:15 CDT Mitch luis [facility] CPT-34498 Level 3 Est. Patient 23:20:57 CDT Tavo toure MD [facility] CPT-49082 Level 3 Est. Patient 16:26:13 CDT Mitch luis [facility] Procedures Code Procedure Name Date Entry Date Standard Desc ription CPT-71874 PT/INR - LAB USE ONLY 10:34:49 CARPET INSPECTOR CPT-06844 Venipuncture Draw Fee 10:34:48 CARPET INSPECTOR CPT-86973 PT/INR - LAB USE ONLY 09:22:03 CARPET INSPECTOR CPT-94507 Venipuncture Draw Fee 09:22:02 CARPET INSPECTOR CPT-10568 Hemoccult IFOBT - LAB USE ONLY 10:27:22 CDT CPT-97345 Venipuncture Draw Fee 08:27:08 CDT CPT-36634 Liver Profile - LAB USE ONLY 08:27:07 CDT 2 CPT-21528 Microalbumin - LAB USE ONLY 08:27:07 CDT 20 25/05/09 CPT-37020 PT/INR - LAB USE ONLY 08:27:07 CDT CPT-29004 HGBA1C - LAB USE ONLY 08:27:07 CDT CPT-91667 CBC - LAB USE ONLY 08:27:07 CDT CPT-19732 Venipuncture Draw Fee 11:09:14 CDT CPT-29123 Venipuncture Draw Fee 08:32:21 CARPET INSPECTOR CPT-64533 Venipuncture Draw Fee 09:38:56 CARPET INSPECTOR CPT-56004 No Charge Offi Visit 21:36:07 CDT 1 CPT-66338 Venipuncture Draw Fee 10:13:28 CARPET INSPECTOR CPT-50226 Venipuncture Draw Fee 08:31:11 CDT CPT-02092 Aspir/Inject Med Joint 18:17:28 CDT CPT-76851 Venipuncture Draw Fee 10:13:30 CDT CPT-86190 Venipuncture Draw Fee 08:31:43 CARPET INSPECTOR CPT-JTINJ Joint Injection 18:34:50 CDT CPT-39911 Knee 3V 12:25:09 CDT CPT-23960 Venipuncture Draw Fee 12:15:57 CDT CPT-060 Medical Surveillance Exam 21:31:43 CDT 2011 CPT-85096 Venipuncture Draw Fee 08:32:05 CARPET INSPECTOR CPT-OV Office Visit 18:19:06 CDT
--- OUTSIDE RECORDS SUMMARY | 2020-01-18 13:12 | XMS REPORT | Clinical Summary ---
Author Author Admin, Mitch Leon Organization [facility] Address Unknown Phone Unavailable Allergies, Adverse [...] Coronary atherosclerosis of unspecified type of vessel, [place] or graft EDEMA 782.3 Resolved Mitch Urbina [...] Mitch Urbina DO Cough, chronic ICD-786.2 Inactive Mtich Urbina Ileana O Sebaceous cyst, infected ICD-706.2 Inactive Mitch Urbina DO Cellulitis ICD-682.9 Inactive Mitch Urbina DO 10/23 Medication List Medication Instructions Start Date Stop Date Generic Name NDC Status Provider Patient Instruction COUMADIN 1 MG TAB take 1 tab daily with 5mg tab. ( 6mg total ) 2015 WARFARIN SODIUM 06775164142 Active Domi Rivera MA Acti ve INVOKANA 100 MG ORAL TABS 1 tablet orally daily CANAGLIFLOZIN 51612212895 Active Kathie Juan RPT,RMA Active MINOXIDIL 2.5 MG TABS 1 tablet daily for high blood pressure 10/23 MINOXIDIL 33263907604 Active Mitch Urbina DO Active AMLODIPINE BESYLATE 5 MG TABS 1 tablet by mouth daily AMLODIPINE BESYLATE 87535326133 Active Domi Rivera MA Active MECLIZINE HCL 25 MG TAB 1 po tid 3 days, then 1/2 tab tid 3 days MECLIZINE HCL 35053089040 No Longer Active Corey SEGURA Active ALLOPURINOL 300 MG TABS Take 1 tablet by mouth daily 2 ALLOPURINOL 31381169223 No Longer Active Corey SEGURA Activ e CLONIDINE HCL 0.1 MG TABS 1 po bid 7 days, then 1/2 tab po b id 7 days CLONIDINE HCL 19416807459 No Longer Active Corey SEGURA Active COUMADIN 5 MG TABS 1 tab PO daily WARFARIN SODIUM 18933608172 Active Domi Rivera MA Active COUMADIN 4 MG TABS 1 tablet daily WARFARIN SODI UM 90644872382 No Longer Active Corey SEGURA Active POLYTRIM 74635-8.1 UNIT/ML-% SOLN 1 drop in affected e ye every 3 hours while awake x 7 days POLYMYXIN B-TRIMETHOPRIM 62131932563 N o Longer Active Corey SEGURA Active LOSARTAN POTASSIUM-HCTZ 100-12.5 MG TABS 1 by mouth da rocky for high blood pressure LOSARTAN POTASSIUM-HCTZ 33683647087 Active Domi Rivera MA Active LISINOPRIL-HYDROCHLOROTHIAZIDE 20-12.5 MG TABS 1 tab by mouth da rocky LISINOPRIL-HYDROCHLOROTHIAZIDE 09162057121 No Longer Active Mitch luis DO Active LISINOPRIL 20 MG TABS 1 tab po at HS LISINOPRIL 22875714121 No Longer Active Mitch Urbina DO Active COUMADIN 5 MG TABS 1 by mouth every other day WARFARIN SODIUM 02883730860 No Longer Active Mitch Urbina DO Active COUMADIN 6 MG TABS 1 by mouth every other day WARFARIN SODIUM 06877469956 No Longer Active Mitch Urbina DO Active COLCRYS 0.6 MG TABS 1 tab qid prn gout COLCHICINE 04106978722 Active Corey SEGURA Active SIMVASTATIN 40 MG TABS 1 tab daily at bedtime S IMVASTATIN 09497518646 Active Domi Rivera MA Active SIMVASTATIN 20 MG TABS 1 tab daily at bedtime S IMVASTATIN 22309750035 No Longer Active Mitch Urbina DO Active LOVENOX 100 MG/ML SC SOLN One injection twice a day 09/15/15 ENOXAPARIN SODIUM 76322283747 No Longer Active Carmine Navarrete ctive JANUVIA 50 MG TABS Take one by mouth daily DIEGO GLIPTIN PHOSPHATE 82908097360 Active Domi Rivera MA Active JANUVIA 100 MG TABS 1/2 by mouth every day DIEGO GLIPTIN PHOSPHATE 86313471198 No Longer Active Bijal Segla RN Active METFORMIN HCL 500 MG TABS 2 by mouth twice daily METFORMIN HCL 46462246411 Active Domi Rivera MA Active GLIMEPIRIDE 4 MG TABS 1 tab po bid GLIMEPIRIDE 573097 75602 Active Domi Rivera MA Active COLCRYS 0.6 MG TABS 1 po q 6 hours prn gout pain 03/02 COLCHICINE 88213903482 No Longer Active Camila Reese Active LISINOPRIL 5 MG TABS 1 by mouth every day LISIN OPRIL 92019060588 No Longer Active Nguyen Perez Active KLOR-CON 20 MEQ PACK Take one by mouth daily 8 POTASSIUM CHLORIDE 54064312252 No Longer Active Nguyenmolly Perez Active FUROSEMIDE 40 MG TABS 1 by mouth daily FUROSEMI DE 44510253052 No Longer Active Nguyenmolly Perez Active PROVIGIL 200 MG TABS 1/2 tab po q day MODAFINIL 62984 361830 Active Domi Rivera MA Active PROVIGIL 100 MG TABS Take one by mouth daily MO DAFINIL 91257583968 No Longer Active Mitch Urbina DO Active BACTRIM DS 800-160 MG TAB 1 tab by mouth twice daily 2 TRIMETHOPRIM-SULFAMETHOXAZOLE 68508647600 No Longer Active Renan Hays MD Active FAMOTIDINE 20 MG TABS by mouth twice a day FAMOTI DINE 24085544274 Active Mitch Urbina DO Active ADULT ASPIRIN LOW STRENGTH 81 MG TBDP 1 by mouth every daily ASPIRIN 24941829389 Active Mitch Urbina DO Active METOPROLOL TARTRATE 50 MG TABS 1 by mouth twice daily METOPROLOL TARTRATE 00486407186 Active Domi Rivera MA Active BACTRIM DS 800-160 MG TAB 1 tab by mouth twice daily 2 BACTRIM DS 800-160 MG TAB 533582 TRIMETHOPRIM-SULFAMETHOXAZOLE Inac tive PROVIGIL 100 MG TABS Take one by mouth daily 4 PROVIGIL 100 MG TABS 783356 MODAFINIL Inactive FUROSEMIDE 40 MG TABS 1 by mouth daily FU ROSEMIDE 40 MG TABS 563525 FUROSEMIDE Inactive KLOR-CON 20 MEQ PACK Take one by mouth daily 8 KLOR-CON 20 MEQ PACK 674417 POTASSIUM CHLORIDE Inactive LISINOPRIL 5 MG TABS 1 by mouth every day LISINOPRIL 5 MG TABS 557958 LISINOPRIL Inactive COLCRYS 0.6 MG TABS 1 po q 6 hours prn gout pain 03/02 COLCRYS 0.6 MG TABS 385026 COLCHICINE Inactive JANUVIA 100 MG TABS 1/2 by mouth every day JANUVI A 100 MG TABS SITAGLIPTIN PHOSPHATE Inactive SIMVASTATIN 20 MG TABS 1 tab daily at bedtime SIMVASTATIN 20 MG TABS 160664 SIMVASTATIN Inactive COUMADIN 6 MG TABS 1 by mouth every other day COUMADIN 6 MG TABS 673694 WARFARIN SODIUM Inactive COUMADIN 5 MG TABS 1 by mouth every other day COUMADIN 5 MG TABS 267608 WARFARIN SODIUM Inactive LISINOPRIL 20 MG TABS 1 tab po at HS KOKI NOPRIL 20 MG TABS 639206 LISINOPRIL Inactive LISINOPRIL-HYDROCHLOROTHIAZIDE 20-12.5 MG TABS 1 tab by mouth da rocky LISINOPRIL-HYDROCHLOROTHIAZIDE 20-12.5 MG TABS 790446 LISINOPRIL-HYDROCHLOROTHIAZIDE Inactive POLYTRIM 00913-0.1 UNIT/ML-% SOLN 1 drop in affected e ye every 3 hours while awake x 7 days POLYTRIM 08122-1.1 UNIT/ML-% SOLN 05681 7 POLYMYXIN B-TRIMETHOPRIM Inactive COUMADIN 4 MG TABS 1 tablet daily COUMADIN 4 MG TABS 770925 WARFARIN SODIUM Inactive CLONIDINE HCL 0.1 MG TABS 1 po bid 7 days, then 1/2 tab po b id 7 days CLONIDINE HCL 0.1 MG TABS 974094 CLONIDINE HCL I nactive ALLOPURINOL 300 MG TABS Take 1 tablet by mouth daily 2 ALLOPURINOL 300 MG TABS 130919 ALLOPURINOL Inactive MECLIZINE HCL 25 MG TAB 1 po tid 3 days, then 1/2 tab tid 3 days MECLIZINE HCL 25 MG TAB 392681 MECLIZINE HCL Inactive LOVENOX 100 MG/ML SC SOLN One injection twice a day 09/15/15 LOVENOX 100 MG/ML SC SOLN 751109 ENOXAPARIN SODIUM Inactive Vital Signs Date Name [...] Ag - Chemistry sodium, serum 141 mmol/L 745-752 0189/07/06 potassium, serum 4.4 mmol/L 3.5-5.2 chloride, serum [...] - Chem istry sodium, serum 136 mmol/L 194-012 6338/01/14 carbon dioxide, venous blood 25.4 mmol/L 21.0-32 [...] 7.0 % 4.3-6.0 cholesterol, serum 120 mg/dL 683-783 3843/07/06 triglyceride, serum, fasting 186 mg/dL 30-200 HDL [...] 1.0-3.5 Encounters Code Encounter Date Provider Facility CPT-93826 Level 3 Est. Patient 09:34:30 SKILLED LABORER Mitch luis [facility] CPT-62927 Level 3 Est. Patient 09:37:15 CDT Mitch luis [facility] CPT-90452 Level 3 Est. Patient 17:01:00 SKILLED LABORER Mitch luis [facility] CPT-10220 Level 3 Est. Patient 13:53:19 SKILLED LABORER Mitch luis [facility] CPT-77009 Level 3 Est. Patient 19:19:37 SKILLED LABORER Mitch luis [facility] CPT-27772 Level 3 Est. Patient 13:25:53 SKILLED LABORER Tavo toure MD [facility] CPT-43505 Level 3 Est. Patient 18:17:28 CDT Mitch luis [facility] CPT-68067 Level 3 Est. Patient 15:22:57 CDT iMtch luis [facility] CPT-28096 Level 3 Est. Patient 18:21:50 CDT Mitch luis [facility] CPT-10937 Level 3 Est. Patient 18:20:38 CDT Mitch luis [facility] CPT-11648 Level 3 Est. Patient 15:37:55 CDT Mitch luis [facility] CPT-90356 Level 2 Est. Patient 15:54:44 CDT Carmine benton MD [facility] CPT-10695 Level 3 Est. Patient 21:46:01 SKILLED LABORER Mitch luis [facility] CPT-57007 Level 3 Est. Patient 22:15:50 CDT Mitch luis [facility] CPT-79750 Level 3 Est. Patient 10:48:15 CDT Mitch luis [facility] CPT-79561 Level 3 Est. Patient 23:20:57 CDT Tavo toure MD [facility] CPT-47427 Level 3 Est. Patient 16:26:13 CDT Mitch luis [facility] Procedures Code Procedure Name Date Entry Date Standard Desc ription CPT-09347 Venipuncture Draw Fee 08:32:21 SKILLED LABORER CPT-86627 Venipuncture Draw Fee 09:38:56 SKILLED LABORER CPT-73001 No Charge Offi Visit 21:36:07 CDT 1 CPT-07018 Venipuncture Draw Fee 10:13:28 SKILLED LABORER CPT-05838 Venipuncture Draw Fee 08:31:11 CDT CPT-05865 Aspir/Inject Med Joint 18:17:28 CDT CPT-28719 Venipuncture Draw Fee 10:13:30 CDT CPT-57071 Venipuncture Draw Fee 08:31:43 SKILLED LABORER CPT-JTINJ Joint Injection 18:34:50 CDT CPT-31770 Knee 3V 12:25:09 CDT CPT-63774 Venipuncture Draw Fee 12:15:57 CDT CPT-060 Medical Surveillance Exam 21:31:43 CDT 2011 CPT-41811 Venipuncture Draw Fee 08:32:05 SKILLED LABORER CPT-OV Office Visit 18:19:06 CDT
--- OUTSIDE RECORDS SUMMARY | 2020-01-18 13:12 | XMS REPORT | Clinical Summary ---
Author Author Admin, Mitch Leon Organization [facility] Address Unknown Phone Unavailable Allergies, Adverse [...] Coronary atherosclerosis of unspecified type of vessel, [place] or graft EDEMA 782.3 Resolved Mitch Urbina [...] tab to equal 7mg daily WARFARIN SODIUM 24592846986 Active Norma Cazares Active COLCRYS 0.6 MG TABS 1 tab qid prn gout COLCHICINE 49649184423 Active Kathie Juan RPT,RMA Active INVOKANA 100 MG ORAL TABS 1 tablet orally daily CANAGLIFLOZIN 19721688161 Active Mitch Urbina DO Active MINOXIDIL 2.5 MG TABS 1 tablet daily for high blood pressure 10/23 MINOXIDIL 73442515262 Active Domi Rivera MA Active AMLODIPINE BESYLATE 5 MG TABS 1 tablet by mouth daily AMLODIPINE BESYLATE 63682602171 Active Mitch Urbina DO Active MECLIZINE HCL 25 MG TAB 1 po tid 3 days, then 1/2 tab tid 3 days MECLIZINE HCL 92363711281 No Longer Active Corey SEGURA Active ALLOPURINOL 300 MG TABS Take 1 tablet by mouth daily 2 ALLOPURINOL 36807325115 No Longer Active Corey SEGURA Activ e CLONIDINE HCL 0.1 MG TABS 1 po bid 7 days, then 1/2 tab po b id 7 days CLONIDINE HCL 58069529363 No Longer Active Corey SEGURA Active COUMADIN 5 MG TABS 1 tab PO daily WARFARIN SODIUM 27596511591 Active Mitch Urbina DO Active COUMADIN 4 MG TABS 1 tablet daily WARFARIN SODI UM 96604801722 No Longer Active Corey SEGURA Active POLYTRIM 25504-4.1 UNIT/ML-% SOLN 1 drop in affected e ye every 3 hours while awake x 7 days POLYMYXIN B-TRIMETHOPRIM 75818846834 N o Longer Active Corey SEGURA Active LOSARTAN POTASSIUM-HCTZ 100-12.5 MG TABS 1 by mouth da [place] for high blood pressure LOSARTAN POTASSIUM-HCTZ 36343800886 Active Stephy Urbina DO Active LISINOPRIL-HYDROCHLOROTHIAZIDE 20-12.5 MG TABS 1 tab by mouth da rocky LISINOPRIL-HYDROCHLOROTHIAZIDE 70478449408 No Longer Active Mitch luis DO Active LISINOPRIL 20 MG TABS 1 tab po at HS LISINOPRIL 66793339717 No Longer Active Mitch Urbina DO Active COUMADIN 5 MG TABS 1 by mouth every other day WARFARIN SODIUM 85647983861 No Longer Active Mitch Urbina DO Active COUMADIN 6 MG TABS 1 by mouth every other day WARFARIN SODIUM 66941628253 No Longer Active Mitch W [place] DO Active SIMVASTATIN 40 MG TABS 1 tab daily at bedtime S IMVASTATIN 32028872019 Active Mitch Urbina DO Active SIMVASTATIN 20 MG TABS 1 tab daily at bedtime S IMVASTATIN 20714850140 No Longer Active Mitch Urbina DO Active LOVENOX 100 MG/ML SC SOLN One injection twice a day 09/15/15 ENOXAPARIN SODIUM 20181986922 No Longer Active Carmine Navarrete ctive JANUVIA 50 MG TABS Take one by mouth daily DIEGO GLIPTIN PHOSPHATE 20426392759 Active Mitch Urbina DO Active JANUVIA 100 MG TABS 1/2 by mouth every day DIEGO GLIPTIN PHOSPHATE 87257149375 No Longer Active Bijal Segal RN Active METFORMIN HCL 500 MG TABS 2 by mouth twice daily METFORMIN HCL 99193237804 Active Mitch Urbina DO Active GLIMEPIRIDE 4 MG TABS 1 tab po bid GLIMEPIRIDE 711394 06667 Active Mitch Urbina DO Active COLCRYS 0.6 MG TABS 1 po q 6 hours prn gout pain 03/02 COLCHICINE 65848756821 No Longer Active Camila Reese Active LISINOPRIL 5 MG TABS 1 by mouth every day LISIN OPRIL 16575742152 No Longer Active Nguyen Perez Active KLOR-CON 20 MEQ PACK Take one by mouth daily 8 POTASSIUM CHLORIDE 48711757900 No Longer Active Nguyen Perez Active FUROSEMIDE 40 MG TABS 1 by mouth daily FUROSEMI DE 12147479995 No Longer Active Nguyen Perez Active PROVIGIL 200 MG TABS 1/2 tab po q day MODAFINIL 13156 866223 Active Kathie Juan RPT,RMA Active PROVIGIL 100 MG TABS Take one by mouth daily MO DAFINIL 60125562778 No Longer Active Mitch Urbina DO Active BACTRIM DS 800-160 MG TAB 1 tab by mouth twice daily 2 TRIMETHOPRIM-SULFAMETHOXAZOLE 93193012962 No Longer Active Renan Hays MD Active FAMOTIDINE 20 MG TABS by mouth twice a day FAMOTI DINE 14706419386 Active Mitch Urbina DO Active ADULT ASPIRIN LOW STRENGTH 81 MG TBDP 1 by mouth every daily ASPIRIN 28968017430 Active Mitch Urbina DO Active METOPROLOL TARTRATE 50 MG TABS 1 by mouth twice daily METOPROLOL TARTRATE 19696812918 Active Mitch Urbina DO Active BACTRIM DS 800-160 MG TAB 1 tab by mouth twice daily 2 BACTRIM DS 800-160 MG TAB 553275 TRIMETHOPRIM-SULFAMETHOXAZOLE Inac tive PROVIGIL 100 MG TABS Take one by mouth daily 4 PROVIGIL 100 MG TABS 370779 MODAFINIL Inactive FUROSEMIDE 40 MG TABS 1 by mouth daily FU ROSEMIDE 40 MG TABS 968988 FUROSEMIDE Inactive KLOR-CON 20 MEQ PACK Take one by mouth daily 8 KLOR-CON 20 MEQ PACK 224426 POTASSIUM CHLORIDE Inactive LISINOPRIL 5 MG TABS 1 by mouth every day LISINOPRIL 5 MG TABS 990574 LISINOPRIL Inactive COLCRYS 0.6 MG TABS 1 po q 6 hours prn gout pain 03/02 COLCRYS 0.6 MG TABS 244323 COLCHICINE Inactive JANUVIA 100 MG TABS 1/2 by mouth every day JANUVI A 100 MG TABS SITAGLIPTIN PHOSPHATE Inactive SIMVASTATIN 20 MG TABS 1 tab daily at bedtime SIMVASTATIN 20 MG TABS 168199 SIMVASTATIN Inactive COUMADIN 6 MG TABS 1 by mouth every other day COUMADIN 6 MG TABS 028821 WARFARIN SODIUM Inactive COUMADIN 5 MG TABS 1 by mouth every other day COUMADIN 5 MG TABS 341653 WARFARIN SODIUM Inactive LISINOPRIL 20 MG TABS 1 tab po at HS KOKI NOPRIL 20 MG TABS 015584 LISINOPRIL Inactive LISINOPRIL-HYDROCHLOROTHIAZIDE 20-12.5 MG TABS 1 tab by mouth da rocky LISINOPRIL-HYDROCHLOROTHIAZIDE 20-12.5 MG TABS 350449 LISINOPRIL-HYDROCHLOROTHIAZIDE Inactive POLYTRIM 81574-2.1 UNIT/ML-% SOLN 1 drop in affected e ye every 3 hours while awake x 7 days POLYTRIM 33789-6.1 UNIT/ML-% SOLN 23593 7 POLYMYXIN B-TRIMETHOPRIM Inactive COUMADIN 4 MG TABS 1 tablet daily COUMADIN 4 MG TABS 113898 WARFARIN SODIUM Inactive CLONIDINE HCL 0.1 MG TABS 1 po bid 7 days, then 1/2 tab po b id 7 days CLONIDINE HCL 0.1 MG TABS 180929 CLONIDINE HCL I nactive ALLOPURINOL 300 MG TABS Take 1 tablet by mouth daily 2 ALLOPURINOL 300 MG TABS 741200 ALLOPURINOL Inactive MECLIZINE HCL 25 MG TAB 1 po tid 3 days, then 1/2 tab tid 3 days MECLIZINE HCL 25 MG TAB 566539 MECLIZINE HCL Inactive LOVENOX 100 MG/ML SC SOLN One injection twice a day 20 09/15/15 LOVENOX 100 MG/ML SC SOLN 436337 ENOXAPARIN SODIUM Inactive Vital Signs Date Name [...] Range Description Chart Maintenance: hemoccult added to [facility] - Chemistry occult blood, stool [...] - Chem istry sodium, serum 136 mmol/L 747-013 6180/01/14 carbon dioxide, venous blood 25.4 mmol/L 21.0-32 [...] CBC - Chemistry cholesterol, serum 136 mg/dL 375-694 3550/08/09 triglyceride, serum, fasting 187 mg/dL 30-200 HDL [...] 1.0-3.5 Encounters Code Encounter Date Provider Facility CPT-78746 Level 3 Est. Patient 14:21:06 CDT Mitch luis [facility] CPT-70477 Level 3 Est. Patient 14:52:06 CDT Joe kamara [facility]-40018 Level 3 Est. Patient 09:34:30 THERMAL ENGINEER Mitch luis [facility] CPT-87021 Level 3 Est. Patient 09:37:15 CDT Mitch luis [facility] CPT-80639 Level 3 Est. Patient 17:01:00 THERMAL ENGINEER Mitch luis [facility] CPT-05597 Level 3 Est. Patient 13:53:19 THERMAL ENGINEER Mitch luis [facility] CPT-39545 Level 3 Est. Patient 19:19:37 THERMAL ENGINEER Mitch luis [facility] CPT-68302 Level 3 Est. Patient 13:25:53 THERMAL ENGINEER Tavo toure MD [facility]-99900 Level 3 Est. Patient 18:17:28 CDT Mitch luis [facility] CPT-10590 Level 3 Est. Patient 15:22:57 CDT Mitch luis [facility] CPT-63278 Level 3 Est. Patient 18:21:50 CDT Mitch luis [facility] CPT-45472 Level 3 Est. Patient 18:20:38 CDT Mitch luis [facility] CPT-90975 Level 3 Est. Patient 15:37:55 CDT Mitch luis [facility] CPT-56251 Level 2 Est. Patient 15:54:44 CDT Carmine benton MD [facility] CPT-18022 Level 3 Est. Patient 21:46:01 THERMAL ENGINEER Mitch luis [facility] CPT-71900 Level 3 Est. Patient 22:15:50 CDT Mitch luis [facility] CPT-33142 Level 3 Est. Patient 10:48:15 CDT Mitch luis [facility] CPT-63929 Level 3 Est. Patient 23:20:57 CDT Tavo toure MD [facility] CPT-88810 Level 3 Est. Patient 16:26:13 CDT Mitch luis [facility] Procedures Code Procedure Name Date Entry Date Standard Desc ription CPT-15359 Hemoccult IFOBT - LAB USE ONLY 10:27:22 CDT CPT-73028 Venipuncture Draw Fee 08:27:08 CDT CPT-01154 Liver Profile - LAB USE ONLY 08:27:07 CDT 2 CPT-90367 Microalbumin - LAB USE ONLY 08:27:07 CDT 20 25/05/09 CPT-49724 PT/INR - LAB USE ONLY 08:27:07 CDT CPT-70760 HGBA1C - LAB USE ONLY 08:27:07 CDT CPT-43569 CBC - LAB USE ONLY 08:27:07 CDT CPT-43879 Venipuncture Draw Fee 11:09:14 CDT CPT-19190 Venipuncture Draw Fee 08:32:21 THERMAL ENGINEER CPT-99068 Venipuncture Draw Fee 09:38:56 THERMAL ENGINEER CPT-32649 No Charge Offi Visit 21:36:07 CDT 1 CPT-23181 Venipuncture Draw Fee 10:13:28 THERMAL ENGINEER CPT-66945 Venipuncture Draw Fee 08:31:11 CDT CPT-60470 Aspir/Inject Med Joint 18:17:28 CDT CPT-90038 Venipuncture Draw Fee 10:13:30 CDT CPT-89001 Venipuncture Draw Fee 08:31:43 THERMAL ENGINEER CPT-JTINJ Joint Injection 18:34:50 CDT CPT-26512 Knee 3V 12:25:09 CDT CPT-81657 Venipuncture Draw Fee 12:15:57 CDT CPT-060 Medical Surveillance Exam 21:31:43 CDT 2011 CPT-86268 Venipuncture Draw Fee 08:32:05 THERMAL ENGINEER CPT-OV Office Visit 18:19:06 CDT
--- OUTSIDE RECORDS SUMMARY | 2020-01-18 13:13 | XMS REPORT | Clinical Summary ---
Author Author Admin, Mitch Leon Organization [facility] [employer] Address Unknown Phone Unavailable Allergies, Adverse Reactions, [...] Coronary atherosclerosis of unspecified type of vessel, afognak or graft EDEMA 782.3 Resolved Mitch Urbina [...] 1 hour if symptoms persist. COLCHICINE 59 606374427 Active Mitch Urbina DO Active COUMADIN 1 MG TAB 2 tabs orally daily with the 5mg tab to equal 7mg daily WARFARIN SODIUM 26388849300 Active Mitch Urbina DO Active COLCRYS 0.6 MG TABS 1 tab qid prn gout COLCHICINE 32669145350 Active Norma Cazares Active INVOKANA 100 MG ORAL TABS 1 tablet orally daily CANAGLIFLOZIN 90734225462 Active Brenda Shen Active MINOXIDIL 2.5 MG TABS 1 tablet daily for high blood pressure 10/23 MINOXIDIL 65604101959 Active Ana Wallace Active AMLODIPINE BESYLATE 5 MG TABS 1 tablet by mouth daily AMLODIPINE BESYLATE 24728284176 Active Mitch Urbina DO Active MECLIZINE HCL 25 MG TAB 1 po tid 3 days, then 1/2 tab tid 3 days MECLIZINE HCL 40433161790 No Longer Active Corey SEGURA Active ALLOPURINOL 300 MG TABS Take 1 tablet by mouth daily 2 ALLOPURINOL 54707012094 No Longer Active Corey SEGURA Activ e CLONIDINE HCL 0.1 MG TABS 1 po bid 7 days, then 1/2 tab po b id 7 days CLONIDINE HCL 75944340951 No Longer Active Corey SEGURA Active COUMADIN 5 MG TABS 1 tab PO daily WARFARIN SODIUM 19391599637 Active Mitch Urbina DO Active COUMADIN 4 MG TABS 1 tablet daily WARFARIN SODI UM 15812391279 No Longer Active Corey SEGURA Active POLYTRIM 38709-1.1 UNIT/ML-% SOLN 1 drop in affected e ye every 3 hours while awake x 7 days POLYMYXIN B-TRIMETHOPRIM 70670739519 N o Longer Active Corey SEGURA Active LOSARTAN POTASSIUM-HCTZ 100-12.5 MG TABS 1 by mouth da rocky for high blood pressure LOSARTAN POTASSIUM-HCTZ 39521379403 Active Stephy Urbina DO Active LISINOPRIL-HYDROCHLOROTHIAZIDE 20-12.5 MG TABS 1 tab by mouth da rocky LISINOPRIL-HYDROCHLOROTHIAZIDE 01634378865 No Longer Active Mitch luis DO Active LISINOPRIL 20 MG TABS 1 tab po at HS LISINOPRIL 14029114670 No Longer Active Mitch Urbina DO Active COUMADIN 5 MG TABS 1 by mouth every other day WARFARIN SODIUM 95184089103 No Longer Active Mitch Urbina DO Active COUMADIN 6 MG TABS 1 by mouth every other day WARFARIN SODIUM 89216726910 No Longer Active Mitch Arnol Carlitos DO Active SIMVASTATIN 40 MG TABS 1 tab daily at bedtime S IMVASTATIN 97639101023 Active Mitch Urbina DO Active SIMVASTATIN 20 MG TABS 1 tab daily at bedtime S IMVASTATIN 43376118939 No Longer Active Mitch Urbina DO Active LOVENOX 100 MG/ML SC SOLN One injection twice a day 09/15/15 ENOXAPARIN SODIUM 41906627333 No Longer Active Carmine Navarrete ctive JANUVIA 50 MG TABS Take one by mouth daily DIEGO GLIPTIN PHOSPHATE 09396085630 Active Mitch Arnol Carlitos DO Active JANUVIA 100 MG TABS 1/2 by mouth every day DIEGO GLIPTIN PHOSPHATE 09105595305 No Longer Active Bijal Segal RN Active METFORMIN HCL 500 MG TABS 2 by mouth twice daily METFORMIN HCL 13651425005 Active Mitch Arnol Carlitos DO Active GLIMEPIRIDE 4 MG TABS 1 tab po bid GLIMEPIRIDE 269733 48719 Active Mitch Arnol Carlitos DO Active COLCRYS 0.6 MG TABS 1 po q 6 hours prn gout pain 03/02 COLCHICINE 78059821608 No Longer Active Camila Reese Active LISINOPRIL 5 MG TABS 1 by mouth every day LISIN OPRIL 21056364233 No Longer Active Nguyen Perez Active KLOR-CON 20 MEQ PACK Take one by mouth daily 8 POTASSIUM CHLORIDE 18514232985 No Longer Active Nguyenmolly Perez Active FUROSEMIDE 40 MG TABS 1 by mouth daily FUROSEMI DE 84698450080 No Longer Active Nguyen Perez Active PROVIGIL 200 MG TABS 1/2 tab po q day MODAFINIL 50852 134783 Active Kathie Juan RPT,RMA Active PROVIGIL 100 MG TABS Take one by mouth daily MO DAFINIL 14729810347 No Longer Active Mitch Urbina DO Active BACTRIM DS 800-160 MG TAB 1 tab by mouth twice daily 2 TRIMETHOPRIM-SULFAMETHOXAZOLE 89210319637 No Longer Active Renan Hays MD Active FAMOTIDINE 20 MG TABS by mouth twice a day FAMOTI DINE 21851723996 Active Mitch Urbina DO Active ADULT ASPIRIN LOW STRENGTH 81 MG TBDP 1 by mouth every daily ASPIRIN 04312940340 Active Mitch Urbina DO Active METOPROLOL TARTRATE 50 MG TABS 1 by mouth twice daily METOPROLOL TARTRATE 92960646942 Active Mitch Urbina DO Active BACTRIM DS 800-160 MG TAB 1 tab by mouth twice daily 2 BACTRIM DS 800-160 MG TAB 900568 TRIMETHOPRIM-SULFAMETHOXAZOLE Inac tive PROVIGIL 100 MG TABS Take one by mouth daily 4 PROVIGIL 100 MG TABS 810511 MODAFINIL Inactive FUROSEMIDE 40 MG TABS 1 by mouth daily FU ROSEMIDE 40 MG TABS 852605 FUROSEMIDE Inactive KLOR-CON 20 MEQ PACK Take one by mouth daily 8 KLOR-CON 20 MEQ PACK 291775 POTASSIUM CHLORIDE Inactive LISINOPRIL 5 MG TABS 1 by mouth every day LISINOPRIL 5 MG TABS 370022 LISINOPRIL Inactive COLCRYS 0.6 MG TABS 1 po q 6 hours prn gout pain 03/02 COLCRYS 0.6 MG TABS 260479 COLCHICINE Inactive JANUVIA 100 MG TABS 1/2 by mouth every day JANUVI A 100 MG TABS SITAGLIPTIN PHOSPHATE Inactive SIMVASTATIN 20 MG TABS 1 tab daily at bedtime SIMVASTATIN 20 MG TABS 407115 SIMVASTATIN Inactive COUMADIN 6 MG TABS 1 by mouth every other day COUMADIN 6 MG TABS 042131 WARFARIN SODIUM Inactive COUMADIN 5 MG TABS 1 by mouth every other day COUMADIN 5 MG TABS 862425 WARFARIN SODIUM Inactive LISINOPRIL 20 MG TABS 1 tab po at HS KOKI NOPRIL 20 MG TABS 927752 LISINOPRIL Inactive LISINOPRIL-HYDROCHLOROTHIAZIDE 20-12.5 MG TABS 1 tab by mouth da rocky LISINOPRIL-HYDROCHLOROTHIAZIDE 20-12.5 MG TABS 408321 LISINOPRIL-HYDROCHLOROTHIAZIDE Inactive POLYTRIM 09012-8.1 UNIT/ML-% SOLN 1 drop in affected e ye every 3 hours while awake x 7 days POLYTRIM 35154-1.1 UNIT/ML-% SOLN 83341 7 POLYMYXIN B-TRIMETHOPRIM Inactive COUMADIN 4 MG TABS 1 tablet daily COUMADIN 4 MG TABS 243506 WARFARIN SODIUM Inactive CLONIDINE HCL 0.1 MG TABS 1 po bid 7 days, then 1/2 tab po b id 7 days CLONIDINE HCL 0.1 MG TABS 419421 CLONIDINE HCL I nactive ALLOPURINOL 300 MG TABS Take 1 tablet by mouth daily 2 ALLOPURINOL 300 MG TABS 335670 ALLOPURINOL Inactive MECLIZINE HCL 25 MG TAB 1 po tid 3 days, then 1/2 tab tid 3 days MECLIZINE HCL 25 MG TAB 607716 MECLIZINE HCL Inactive LOVENOX 100 MG/ML SC SOLN One injection twice a day 09/15/15 LOVENOX 100 MG/ML SC SOLN 002703 ENOXAPARIN SODIUM Inactive Vital Signs Date Name [...] CBC - Chemistry cholesterol, serum 136 mg/dL 531-228 9052/08/09 triglyceride, serum, fasting 187 mg/dL 30-200 HDL [...] 1.0-3.5 Encounters Code Encounter Date Provider Facility CPT-42921 Level 3 Est. Patient 14:21:06 CDT Mitch Ambrose L janelle [facility] CPT-05624 Level 3 Est. Patient 14:52:06 CD[facility] Level 3 Est. Patient 09:34:30 FIELD SERVICE CONSULTANT Mitch W L janelle [facility] CPT-58101 Level 3 Est. Patient 09:37:15 CDT Mitch W L ee [facility] CPT-97291 Level 3 Est. Patient 17:01:00 FIELD SERVICE CONSULTANT Mitch W L janelle [facility] CPT-65550 Level 3 Est. Patient 13:53:19 FIELD SERVICE CONSULTANT Mitch W L janelle [facility] CPT-05417 Level 3 Est. Patient 19:19:37 FIELD SERVICE CONSULTANT Mitch W L janelle [facility] CPT-95663 Level 3 Est. Patient 13:25:53 FIELD SERVICE CONSULTANT Tavo toure MD [facility] CPT-79334 Level 3 Est. Patient 18:17:28 CDT Mitch W L ee [facility] CPT-38103 Level 3 Est. Patient 15:22:57 CDT Mitch W L janelle [facility] CPT-05585 Level 3 Est. Patient 18:21:50 CDT Mitch W L ee [facility] CPT-63474 Level 3 Est. Patient 18:20:38 CDT Mitch W L ee [facility] CPT-97394 Level 3 Est. Patient 15:37:55 CDT Mitch W L ee [facility] CPT-22782 Level 2 Est. Patient 15:54:44 CDT Carmine benton MD [facility]-96474 Level 3 Est. Patient 21:46:01 FIELD SERVICE CONSULTANT Mitch luis [facility] CPT-81905 Level 3 Est. Patient 22:15:50 CDT Mitch luis [facility] CPT-08546 Level 3 Est. Patient 10:48:15 CDT Mitch luis DO [facility] CPT-49431 Level 3 Est. Patient 23:20:57 CDT Tavo toure MD [facility] CPT-74043 Level 3 Est. Patient 16:26:13 CDT Mitch luis [facility] Procedures Code Procedure Name Date Entry Date Standard Desc ription CPT-11027 PT/INR - LAB USE ONLY 13:32:49 FIELD SERVICE CONSULTANT CPT-83493 Venipuncture Draw Fee 13:32:49 FIELD SERVICE CONSULTANT CPT-04592 PT/INR - LAB USE ONLY 10:34:49 FIELD SERVICE CONSULTANT CPT-01402 Venipuncture Draw Fee 10:34:48 FIELD SERVICE CONSULTANT CPT-83619 PT/INR - LAB USE ONLY 09:22:03 FIELD SERVICE CONSULTANT CPT-21630 Venipuncture Draw Fee 09:22:02 FIELD SERVICE CONSULTANT CPT-74789 Hemoccult IFOBT - LAB USE ONLY 10:27:22 CDT CPT-37702 Venipuncture Draw Fee 08:27:08 CDT CPT-90219 Liver Profile - LAB USE ONLY 08:27:07 CDT 2 CPT-10115 Microalbumin - LAB USE ONLY 08:27:07 CDT 20 25/05/09 CPT-45898 PT/INR - LAB USE ONLY 08:27:07 CDT CPT-47836 HGBA1C - LAB USE ONLY 08:27:07 CDT CPT-77192 CBC - LAB USE ONLY 08:27:07 CDT CPT-55644 Venipuncture Draw Fee 11:09:14 CDT CPT-60584 Venipuncture Draw Fee 08:32:21 FIELD SERVICE CONSULTANT CPT-57429 Venipuncture Draw Fee 09:38:56 FIELD SERVICE CONSULTANT CPT-36991 No Charge Offi Visit 21:36:07 CDT 1 CPT-04275 Venipuncture Draw Fee 10:13:28 FIELD SERVICE CONSULTANT CPT-73811 Venipuncture Draw Fee 08:31:11 CDT CPT-76033 Aspir/Inject Med Joint 18:17:28 CDT CPT-30294 Venipuncture Draw Fee 10:13:30 CDT CPT-03511 Venipuncture Draw Fee 08:31:43 FIELD SERVICE CONSULTANT CPT-JTINJ Joint Injection 18:34:50 CDT CPT-05128 Knee 3V 12:25:09 CDT CPT-96529 Venipuncture Draw Fee 12:15:57 CDT CPT-060 Medical Surveillance Exam 21:31:43 CDT 2011 CPT-49454 Venipuncture Draw Fee 08:32:05 FIELD SERVICE CONSULTANT CPT-OV Office Visit 18:19:06 CDT
--- OUTSIDE RECORDS SUMMARY | 2020-01-18 13:13 | XMS REPORT | Clinical Summary ---
Author Author Admin, Mitch Leon Organization [facility] Address Unknown Phone Unavailable Allergies, Adverse Reactions, [...] Hypoglycemia, unspecified GOUT, WRIST 274.9 Active Mitch Urbnia DO Gout, unspecified LONG-TERM (CURRENT) USE OF ANTICOAGULANTS V58.61 Resol kylah Mitch Urbina DO Long-term (current) use of anticoagulant s HEALTH MAINTENANCE EXAM V70.0 Active Mitch Meraz DO Routine general medical examination at a health care facility CORONARY HEART DISEASE 414.00 Active Mitch Urbina DO Coronary atherosclerosis of unspecified type of vessel, chinik or graft EDEMA 782.3 Resolved Mitch Urbina [...] 500 MG CAP 1 po qid CEPHALEXIN 63159023093 Act juan Mitch Ambrose Carlitos VELASQUEZ Active LOSARTAN POTASSIUM 100 MG TABS 1 pill by mouth daily, for bl ood pressure LOSARTAN POTASSIUM 15135830999 Active Ana Wallace Active AMLODIPINE BESYLATE 5 MG TABS 1 tablet by mouth daily AMLODIPINE BESYLATE 18534884714 No Longer Active Joe Davisdonaldo VALENCIA Active MITIGARE 0.6 MG ORAL CAPS 2 capsules at onset of gout pain, then take one capsule at 1 hour if symptoms persist. COLCHICINE 59 708172686 Active Mitch Urbina DO Active COUMADIN 1 MG TAB 2 tabs orally daily with the 5mg tab to equal 7mg daily WARFARIN SODIUM 88410629491 Active Mitch Urbina DO Active COLCRYS 0.6 MG TABS 1 tab qid prn gout COLCHICINE 15079215870 Active Norma Cazares Active INVOKANA 100 MG ORAL TABS 1 tablet orally daily CANAGLIFLOZIN 45660461820 Active Mitch Urbina DO Active MINOXIDIL 2.5 MG TABS 1 tablet daily for high blood pressure 10/23 MINOXIDIL 12682478206 Active Mitch Urbina DO Active MECLIZINE HCL 25 MG TAB 1 po tid 3 days, then 1/2 tab tid 3 days MECLIZINE HCL 20473662611 No Longer Active Corey SEGURA Active ALLOPURINOL 300 MG TABS Take 1 tablet by mouth daily 2 ALLOPURINOL 77691751273 No Longer Active Corey SEGURA Activ e CLONIDINE HCL 0.1 MG TABS 1 po bid 7 days, then 1/2 tab po b id 7 days CLONIDINE HCL 50773163104 No Longer Active Corey SEGURA Active COUMADIN 5 MG TABS 1 tab PO daily WARFARIN SODIUM 37900034075 Active Mitch Urbina DO Active COUMADIN 4 MG TABS 1 tablet daily WARFARIN SODI UM 98287598056 No Longer Active Corey SEGURA Active POLYTRIM 08195-8.1 UNIT/ML-% SOLN 1 drop in affected e ye every 3 hours while awake x 7 days POLYMYXIN B-TRIMETHOPRIM 04454521879 N o Longer Active Corey SEGURA Active LOSARTAN POTASSIUM-HCTZ 100-12.5 MG TABS 1 by mouth da rocky for high blood pressure LOSARTAN POTASSIUM-HCTZ 35544183421 No Longer A ctive Mitch Urbina DO Active LISINOPRIL-HYDROCHLOROTHIAZIDE 20-12.5 MG TABS 1 tab by mouth da rocky LISINOPRIL-HYDROCHLOROTHIAZIDE 12722469570 No Longer Active Mitch Castellano janelle DO Active LISINOPRIL 20 MG TABS 1 tab po at HS LISINOPRIL 17495429566 No Longer Active Mitch Urbina DO Active COUMADIN 5 MG TABS 1 by mouth every other day WARFARIN SODIUM 82081426361 No Longer Active Mitch Urbina DO Active COUMADIN 6 MG TABS 1 by mouth every other day WARFARIN SODIUM 03563683644 No Longer Active Mitch Urbina DO Active SIMVASTATIN 40 MG TABS 1 tab daily at bedtime S IMVASTATIN 98126897369 Active Mitch Urbina DO Active SIMVASTATIN 20 MG TABS 1 tab daily at bedtime S IMVASTATIN 81416104404 No Longer Active Mitch Urbina DO Active LOVENOX 100 MG/ML SC SOLN One injection twice a day 09/15/15 ENOXAPARIN SODIUM 55631937845 No Longer Active Carmine Yusuf MD A ctive JANUVIA 50 MG TABS Take one by mouth daily DIEGO GLIPTIN PHOSPHATE 48824097487 Active Mitch Urbina DO Active JANUVIA 100 MG TABS 1/2 by mouth every day DIEGO GLIPTIN PHOSPHATE 73820411665 No Longer Active Bijal Segal RN Active METFORMIN HCL 500 MG TABS 2 by mouth twice daily METFORMIN HCL 22127769168 Active Mitch Urbina DO Active GLIMEPIRIDE 4 MG TABS 1 tab po bid GLIMEPIRIDE 716347 45622 Active Mitch Urbina DO Active COLCRYS 0.6 MG TABS 1 po q 6 hours prn gout pain 03/02 COLCHICINE 21765994760 No Longer Active Camila Reese Active LISINOPRIL 5 MG TABS 1 by mouth every day LISIN OPRIL 30894685434 No Longer Active Nguyen Perez Active KLOR-CON 20 MEQ PACK Take one by mouth daily 8 POTASSIUM CHLORIDE 50316858116 No Longer Active Nguyenmolly Perez Active FUROSEMIDE 40 MG TABS 1 by mouth daily FUROSEMI DE 33628116428 No Longer Active Nguyenmac Perez Active PROVIGIL 200 MG TABS 1/2 tab po q day MODAFINIL 34105 522568 Active Mitch Urbina DO Active PROVIGIL 100 MG TABS Take one by mouth daily MO DAFINIL 49484066839 No Longer Active Mitch Urbina DO Active BACTRIM DS 800-160 MG TAB 1 tab by mouth twice daily 2 TRIMETHOPRIM-SULFAMETHOXAZOLE 06557071744 No Longer Active Renan Hays MD Active FAMOTIDINE 20 MG TABS by mouth twice a day FAMOTI DINE 35989532799 Active Mitch Urbina DO Active ADULT ASPIRIN LOW STRENGTH 81 MG TBDP 1 by mouth every daily ASPIRIN 41564815718 Active Mitch Urbina DO Active METOPROLOL TARTRATE 50 MG TABS 1 by mouth twice daily METOPROLOL TARTRATE 03584742065 Active Mitch Urbina DO Active BACTRIM DS 800-160 MG TAB 1 tab by mouth twice daily 2 BACTRIM DS 800-160 MG TAB 067186 TRIMETHOPRIM-SULFAMETHOXAZOLE Inac tive PROVIGIL 100 MG TABS Take one by mouth daily 4 PROVIGIL 100 MG TABS 446380 MODAFINIL Inactive FUROSEMIDE 40 MG TABS 1 by mouth daily FU ROSEMIDE 40 MG TABS 854999 FUROSEMIDE Inactive KLOR-CON 20 MEQ PACK Take one by mouth daily 8 KLOR-CON 20 MEQ PACK 8474947 POTASSIUM CHLORIDE Inactive LISINOPRIL 5 MG TABS 1 by mouth every day LISINOPRIL 5 MG TABS 436061 LISINOPRIL Inactive COLCRYS 0.6 MG TABS 1 po q 6 hours prn gout pain 03/02 COLCRYS 0.6 MG TABS 269213 COLCHICINE Inactive JANUVIA 100 MG TABS 1/2 by mouth every day JANUVI A 100 MG TABS SITAGLIPTIN PHOSPHATE Inactive SIMVASTATIN 20 MG TABS 1 tab daily at bedtime SIMVASTATIN 20 MG TABS 781082 SIMVASTATIN Inactive COUMADIN 6 MG TABS 1 by mouth every other day COUMADIN 6 MG TABS 049916 WARFARIN SODIUM Inactive COUMADIN 5 MG TABS 1 by mouth every other day COUMADIN 5 MG TABS 040033 WARFARIN SODIUM Inactive LISINOPRIL 20 MG TABS 1 tab po at HS KOKI NOPRIL 20 MG TABS 557684 LISINOPRIL Inactive LISINOPRIL-HYDROCHLOROTHIAZIDE 20-12.5 MG TABS 1 tab by mouth da rocky LISINOPRIL-HYDROCHLOROTHIAZIDE 20-12.5 MG TABS 558211 LISINOPRIL-HYDROCHLOROTHIAZIDE Inactive POLYTRIM 18470-3.1 UNIT/ML-% SOLN 1 drop in affected e ye every 3 hours while awake x 7 days POLYTRIM 80473-5.1 UNIT/ML-% SOLN 01811 7 POLYMYXIN B-TRIMETHOPRIM Inactive COUMADIN 4 MG TABS 1 tablet daily COUMADIN 4 MG TABS 191285 WARFARIN SODIUM Inactive CLONIDINE HCL 0.1 MG TABS 1 po bid 7 days, then 1/2 tab po b id 7 days CLONIDINE HCL 0.1 MG TABS 854154 CLONIDINE HCL I nactive ALLOPURINOL 300 MG TABS Take 1 tablet by mouth daily 2 ALLOPURINOL 300 MG TABS 262980 ALLOPURINOL Inactive MECLIZINE HCL 25 MG TAB 1 po tid 3 days, then 1/2 tab tid 3 days MECLIZINE HCL 25 MG TAB 611533 MECLIZINE HCL Inactive AMLODIPINE BESYLATE 5 MG TABS 1 tablet by mouth daily AMLODIPINE BESYLATE 5 MG TABS 351906 AMLODIPINE BESYLATE Inactive LOVENOX 100 MG/ML SC SOLN One injection twice a day 09/15/15 LOVENOX 100 MG/ML SC SOLN 518486 ENOXAPARIN SODIUM Inactive Vital Signs Date Name [...] - Chem istry sodium, serum 139 mmol/L 414-582 9949/07/17 potassium, serum 4.2 mmol/L 3.5-5.2 chloride, serum [...] ... - Chemistry sodium, serum 144 mmol/L 887-727 5945/06/12 carbon dioxide, venous blood 26.6 mmol/L 21.0-32 [...] CBC - Chemistry cholesterol, serum 136 mg/dL 940-045 4691/08/09 triglyceride, serum, fasting 187 mg/dL 30-200 HDL [...] 1.0-3.5 Encounters Code Encounter Date Provider Facility CPT-23696 Level 3 Est. Patient 19:43:34 CDT Mitch luis [facility] CPT-51348 Level 4 Est. Patient 09:30:18 CDT Mitch luis [facility] CPT-88518 Level 3 Est. Patient 15:10:14 CDT Joe kamara [facility]-27064 Level 3 Est. Patient 15:03:46 CDT Joe kamara [facility]-52616 Level 3 Est. Patient 14:21:[address] [facility]-15467 Level 3 Est. Patient 14:52:06 CDT Joe Jason [facility]-16092 Level 3 Est. Patient 09:34:30 LAP CUTTER Mitch luis [facility] CPT-39880 Level 3 Est. Patient 09:37:15 CDT Mitch luis [facility] CPT-98381 Level 3 Est. Patient 17:01:00 LAP CUTTER Mitch luis [facility] CPT-61822 Level 3 Est. Patient 13:53:19 LAP CUTTER Mitch luis [facility] CPT-71572 Level 3 Est. Patient 19:19:37 LAP CUTTER Mitch luis [facility] CPT-29765 Level 3 Est. Patient 13:25:53 LAP CUTTER Tavo toure MD [facility] CPT-83790 Level 3 Est. Patient 18:17:28 CDT Mitch luis [facility] CPT-09784 Level 3 Est. Patient 15:22:57 CDT Mitch luis [facility] CPT-70514 Level 3 Est. Patient 18:21:50 CDT Mitch luis [facility] CPT-88532 Level 3 Est. Patient 18:20:38 CDT Mitch luis [facility] CPT-33255 Level 3 Est. Patient 15:37:55 CDT Mitch luis [facility] CPT-83887 Level 2 Est. Patient 15:54:44 CDT Carmine benton MD [facility] CPT-28676 Level 3 Est. Patient 21:46:01 LAP CUTTER Mitch luis [facility] CPT-46956 Level 3 Est. Patient 22:15:50 CDT Mitch luis [facility] CPT-71495 Level 3 Est. Patient 10:48:15 CDT Mitch luis [facility] CPT-80517 Level 3 Est. Patient 23:20:57 CDT Tavo toure MD [facility] CPT-77445 Level 3 Est. Patient 16:26:13 CDT Mitch luis [facility] Procedures Code Procedure Name Date Entry Date Standard Desc ription CPT-72051 Venipuncture Draw Fee 09:26:17 CDT CPT-29359 PT/INR - LAB USE ONLY 13:32:49 LAP CUTTER CPT-87567 Venipuncture Draw Fee 13:32:49 LAP CUTTER CPT-60834 PT/INR - LAB USE ONLY 10:34:49 LAP CUTTER CPT-32208 Venipuncture Draw Fee 10:34:48 LAP CUTTER CPT-73475 PT/INR - LAB USE ONLY 09:22:03 LAP CUTTER CPT-38994 Venipuncture Draw Fee 09:22:02 LAP CUTTER CPT-28379 Hemoccult IFOBT - LAB USE ONLY 10:27:22 CDT CPT-99532 Venipuncture Draw Fee 08:27:08 CDT CPT-87591 Liver Profile - LAB USE ONLY 08:27:07 CDT 2 CPT-71994 Microalbumin - LAB USE ONLY 08:27:07 CDT 20 25/05/09 CPT-49014 PT/INR - LAB USE ONLY 08:27:07 CDT CPT-76457 HGBA1C - LAB USE ONLY 08:27:07 CDT CPT-78636 CBC - LAB USE ONLY 08:27:07 CDT CPT-03439 Venipuncture Draw Fee 11:09:14 CDT CPT-01199 Venipuncture Draw Fee 08:32:21 LAP CUTTER CPT-89562 Venipuncture Draw Fee 09:38:56 LAP CUTTER CPT-57622 No Charge Offi Visit 21:36:07 CDT 1 CPT-08088 Venipuncture Draw Fee 10:13:28 LAP CUTTER CPT-50108 Venipuncture Draw Fee 08:31:11 CDT CPT-95836 Aspir/Inject Med Joint 18:17:28 CDT CPT-66393 Venipuncture Draw Fee 10:13:30 CDT CPT-59309 Venipuncture Draw Fee 08:31:43 LAP CUTTER CPT-JTINJ Joint Injection 18:34:50 CDT CPT-08724 Knee 3V 12:25:09 CDT CPT-24965 Venipuncture Draw Fee 12:15:57 CDT CPT-060 Medical Surveillance Exam 21:31:43 CDT 2011 CPT-87168 Venipuncture Draw Fee 08:32:05 LAP CUTTER CPT-OV Office Visit 18:19:06 CDT
--- OUTSIDE RECORDS SUMMARY | 2020-01-18 13:13 | XMS REPORT | Clinical Summary ---
[...] Coronary atherosclerosis of unspecified type of vessel, [place] or graft EDEMA 782.3 Active Mitch Urbina [...] 1 tablet by mouth daily AMLODIPINE BESYLATE 00218443916 Active Mitch Urbina DO Active MECLIZINE HCL 25 MG TAB 1 po tid 3 days, then 1/2 tab tid 3 days MECLIZINE HCL 10772428204 No Longer Active Corey SEGURA Active ALLOPURINOL 300 MG TABS Take 1 tablet by mouth daily 2 ALLOPURINOL 40340980065 No Longer Active Corey SEGURA Activ e CLONIDINE HCL 0.1 MG TABS 1 po bid 7 days, then 1/2 tab po b id 7 days CLONIDINE HCL 77579102582 No Longer Active Corey SEGURA Active COUMADIN 5 MG TABS 1 tab PO daily WARFARIN SODIUM 51714239728 Active Mitch Urbina DO Active COUMADIN 4 MG TABS 1 tablet daily WARFARIN SODI UM 87749080507 No Longer Active Corey SEGURA Active POLYTRIM 40466-3.1 UNIT/ML-% SOLN 1 drop in affected e ye every 3 hours while awake x 7 days POLYMYXIN B-TRIMETHOPRIM 79757232654 N o Longer Active Corey SEGURA Active LOSARTAN POTASSIUM-HCTZ 100-12.5 MG TABS 1 by mouth da rocky for high blood pressure LOSARTAN POTASSIUM-HCTZ 93059844250 Active Stephy Urbina DO Active LISINOPRIL-HYDROCHLOROTHIAZIDE 20-12.5 MG TABS 1 tab by mouth da rocky LISINOPRIL-HYDROCHLOROTHIAZIDE 31554511101 No Longer Active Mitch luis DO Active LISINOPRIL 20 MG TABS 1 tab po at HS LISINOPRIL 85822196821 No Longer Active Mitch Urbina DO Active COUMADIN 5 MG TABS 1 by mouth every other day WARFARIN SODIUM 39391198686 No Longer Active Mitch Urbina DO Active COUMADIN 6 MG TABS 1 by mouth every other day WARFARIN SODIUM 66833755655 No Longer Active iMtch Urbina DO Active COLCRYS 0.6 MG TABS 1 tab qid prn gout COLCHICINE 22502908718 Active Corey SEGURA Active SIMVASTATIN 40 MG TABS 1 tab daily at bedtime S IMVASTATIN 31047526179 Active Mitch Urbina DO Active SIMVASTATIN 20 MG TABS 1 tab daily at bedtime S IMVASTATIN 90687662849 No Longer Active Mitch Urbina DO Active LOVENOX 100 MG/ML SC SOLN One injection twice a day 09/15/15 ENOXAPARIN SODIUM 21984427593 No Longer Active Carmine Navarrete ctive JANUVIA 50 MG TABS Take one by mouth daily DIEGO GLIPTIN PHOSPHATE 71863249406 Active Domi Rivera MA Active JANUVIA 100 MG TABS 1/2 by mouth every day DIEGO GLIPTIN PHOSPHATE 47667604336 No Longer Active Bijal Segal RN Active METFORMIN HCL 500 MG TABS 2 by mouth twice daily METFORMIN HCL 59847920246 Active Mitch Urbina DO Active GLIMEPIRIDE 4 MG TABS 1 tab po bid GLIMEPIRIDE 879283 83302 Active Mitch Urbina DO Active COLCRYS 0.6 MG TABS 1 po q 6 hours prn gout pain 03/02 COLCHICINE 44626320278 No Longer Active Camila Reese Active LISINOPRIL 5 MG TABS 1 by mouth every day LISIN OPRIL 03319088126 No Longer Active Nguyenmolly Perez Active KLOR-CON 20 MEQ PACK Take one by mouth daily 8 POTASSIUM CHLORIDE 13695616182 No Longer Active Nguyen Perez Active FUROSEMIDE 40 MG TABS 1 by mouth daily FUROSEMI DE 04152893144 No Longer Active Nguyen Perez Active PROVIGIL 200 MG TABS 1/2 tab po q day MODAFINIL 04885 514840 Active Mitch Urbina DO Active PROVIGIL 100 MG TABS Take one by mouth daily MO DAFINIL 91355176455 No Longer Active Mitch Urbina DO Active BACTRIM DS 800-160 MG TAB 1 tab by mouth twice daily 2 TRIMETHOPRIM-SULFAMETHOXAZOLE 07279437512 No Longer Active Renan Hays MD Active FAMOTIDINE 20 MG TABS by mouth twice a day FAMOTI DINE 59005010188 Active Mitch W Carlitos DO Active ADULT ASPIRIN LOW STRENGTH 81 MG TBDP 1 by mouth every daily ASPIRIN 63779342872 Active Mitch Urbina DO Active METOPROLOL TARTRATE 50 MG TABS 1 by mouth twice daily METOPROLOL TARTRATE 43465468146 Active Curly Coker MD Active BACTRIM DS 800-160 MG TAB 1 tab by mouth twice daily 2 BACTRIM DS 800-160 MG TAB TRIMETHOPRIM-SULFAMETHOXAZOLE Inac tive PROVIGIL 100 MG TABS Take one by mouth daily 4 PROVIGIL 100 MG TABS 320283 MODAFINIL Inactive FUROSEMIDE 40 MG TABS 1 by mouth daily FU ROSEMIDE 40 MG TABS 979327 FUROSEMIDE Inactive KLOR-CON 20 MEQ PACK Take one by mouth daily 8 KLOR-CON 20 MEQ PACK 088907 POTASSIUM CHLORIDE Inactive LISINOPRIL 5 MG TABS 1 by mouth every day LISINOPRIL 5 MG TABS 204593 LISINOPRIL Inactive COLCRYS 0.6 MG TABS 1 po q 6 hours prn gout pain 03/02 COLCRYS 0.6 MG TABS 816807 COLCHICINE Inactive JANUVIA 100 MG TABS 1/2 by mouth every day JANUVI A 100 MG TABS SITAGLIPTIN PHOSPHATE Inactive SIMVASTATIN 20 MG TABS 1 tab daily at bedtime SIMVASTATIN 20 MG TABS 660733 SIMVASTATIN Inactive COUMADIN 6 MG TABS 1 by mouth every other day COUMADIN 6 MG TABS 377677 WARFARIN SODIUM Inactive COUMADIN 5 MG TABS 1 by mouth every other day COUMADIN 5 MG TABS 531141 WARFARIN SODIUM Inactive LISINOPRIL 20 MG TABS 1 tab po at HS KOKI NOPRIL 20 MG TABS 072019 LISINOPRIL Inactive LISINOPRIL-HYDROCHLOROTHIAZIDE 20-12.5 MG TABS 1 tab by mouth da rocky LISINOPRIL-HYDROCHLOROTHIAZIDE 20-12.5 MG TABS 812302 LISINOPRIL-HYDROCHLOROTHIAZIDE Inactive POLYTRIM 36625-3.1 UNIT/ML-% SOLN 1 drop in affected e ye every 3 hours while awake x 7 days POLYTRIM 80784-3.1 UNIT/ML-% SOLN 97099 7 POLYMYXIN B-TRIMETHOPRIM Inactive COUMADIN 4 MG TABS 1 tablet daily COUMADIN 4 MG TABS 115667 WARFARIN SODIUM Inactive CLONIDINE HCL 0.1 MG TABS 1 po bid 7 days, then 1/2 tab po b id 7 days CLONIDINE HCL 0.1 MG TABS 458332 CLONIDINE HCL I nactive ALLOPURINOL 300 MG TABS Take 1 tablet by mouth daily 2 ALLOPURINOL 300 MG TABS 285907 ALLOPURINOL Inactive MECLIZINE HCL 25 MG TAB 1 po tid 3 days, then 1/2 tab tid 3 days MECLIZINE HCL 25 MG TAB 242909 MECLIZINE HCL Inactive LOVENOX 100 MG/ML SC SOLN One injection twice a day 09/15/15 LOVENOX 100 MG/ML SC SOLN 734884 ENOXAPARIN SODIUM Inactive Vital Signs Date Name [...] 11 .6-14.8 platelet count 283 10^3/MM^3 10*3/mm3 819-132 3559/03/27 neutrophils as percent of blood leukocytes 69.3 % 42.2-75.2 monocytes as percent of blood leukocytes 7.3 % 1.7-9.3 lymphocytes as percent of blood leukocytes 19.7 % 20.5-51.1 erythrocyte (RBC) count 4.83 10^6/MM^3 10*6/mm3 4.69-6.1 3 hemoglobin, blood 13.0 g/dL 13.5-17.5 Lab Report: CBC, Comp. Metabolic Panel, Prostatic Specific Ag - Chemistry sodium, serum 141 mmol/L 802-336 6736/07/06 potassium, serum 4.4 mmol/L 3.5-5.2 chloride, serum [...] Panel - Chemistry sodium, serum 137 mmol/L 357-691 3924/11/14 potassium, serum 4.4 mmol/L 3.5-5.2 chloride, serum [...] 8.0 % 4.3-6.0 cholesterol, serum 130 mg/dL 310-620 1850/11/14 triglyceride, serum, fasting 288 mg/dL 30-200 HDL cholesterol, serum 33 mg/dL 32-96 LDL cholesterol, serum 39 mg/dL 0-130 Lab Report: Comp. Metabolic Panel, HGBA1 C, Lipid Panel, Prothrombin Time - Chemistry sodium, serum 136 mmol/L 367-658 3975/12/02 potassium, serum 4.4 mmol/L 3.5-5.2 chloride, serum [...] 7.6 % 4.3-6.0 cholesterol, serum 117 mg/dL 914-490 4967/12/02 triglyceride, serum, fasting 226 mg/dL 30-200 HDL [...] 7.0 % 4.3-6.0 cholesterol, serum 120 mg/dL 088-161 0876/07/06 triglyceride, serum, fasting 186 mg/dL 30-200 HDL [...] (INR) 2.3 1.0-3.5 international normalized ratio (INR) 2.2 1.0-3.5 prothrombin time (patient) 20.1 SECS s 11.1-13.4 international normalized ratio (INR) 2.6 1.0-3.5 prothrombin time (patient) 18.6 SECS s 11.1-13.4 international normalized ratio (INR) 2.6 1.0-3.5 prothrombin time (patient) 19.9 SECS s 11.1-13.4 international normalized ratio (INR) 1.7 1.0-3.5 prothrombin time (patient) 16.0 SECS s 11.1-13.4 Encounters Code Encounter Date Provider Facility CPT-21958 Level 3 Est. Patient 09:37:15 CDT Mitch luis [facility] CPT-22707 Level 3 Est. Patient 17:01:00 CERTIFIED INDOOR ENVIRONMENTALIST [facility] CPT-27117 Level 3 Est. Patient 13:53:19 CERTIFIED INDOOR ENVIRONMENTALIST [facility] CPT-45095 Level 3 Est. Patient 19:19:37 CERTIFIED INDOOR ENVIRONMENTALIST [facility] CPT-50154 Level 3 Est. Patient 13:25:53 CERTIFIED INDOOR ENVIRONMENTALIST Tavo toure MD [facility] CPT-43127 Level 3 Est. Patient 18:17:28 CDT [facility] CPT-91956 Level 3 Est. Patient 15:22:57 CDT Mitch W L janelle [facility] CPT-33472 Level 3 Est. Patient 18:21:50 CDT Mitch W L ee [facility] CPT-21208 Level 3 Est. Patient 18:20:38 CDT Mitch W L ee [facility] CPT-44809 Level 3 Est. Patient 15:37:55 CDT [facility] CPT-60739 Level 2 Est. Patient 15:54:44 CDT Carmine benton MD [facility]-94201 Level 3 Est. Patient 21:46:01 CERTIFIED INDOOR ENVIRONMENTALIST [facility] CPT-39120 Level 3 Est. Patient 22:15:50 CDT [facility] CPT-17598 Level 3 Est. Patient 10:48:15 CDT [facility] CPT-44310 Level 3 Est. Patient 23:20:57 CDT Tavo toure MD [facility] CPT-84032 Level 3 Est. Patient 16:26:13 CDT [facility] Procedures Code Procedure Name Date Entry Date Standard Desc ription CPT-60393 No Charge Offi Visit 21:36:07 CDT 1 CPT-07382 Venipuncture Draw Fee 10:13:28 CERTIFIED INDOOR ENVIRONMENTALIST CPT-04526 Venipuncture Draw Fee 08:31:11 CDT CPT-95794 Aspir/Inject Med Joint 18:17:28 CDT CPT-25164 Venipuncture Draw Fee 10:13:30 CDT CPT-14775 Venipuncture Draw Fee 08:31:43 CERTIFIED INDOOR ENVIRONMENTALIST CPT-JTINJ Joint Injection 18:34:50 CDT CPT-88433 Knee 3V 12:25:09 CDT CPT-48834 Venipuncture Draw Fee 12:15:57 CDT CPT-060 Medical Surveillance Exam 21:31:43 CDT 2011 CPT-35444 Venipuncture Draw Fee 08:32:05 CERTIFIED INDOOR ENVIRONMENTALIST CPT-OV Office Visit 18:19:06 CDT
--- OUTSIDE RECORDS SUMMARY | 2020-01-18 13:14 | XMS REPORT | Clinical Summary ---
Author Author Admin, Mitch Leon Organization [facility] Address Unknown Phone Unavailable Allergies, Adverse Reactions, [...] Coronary atherosclerosis of unspecified type of vessel, [place] or graft EDEMA 782.3 Resolved Mitch [...] 500 MG CAP 1 po qid CEPHALEXIN 59570583887 Act juan Mitch Ambrose Carlitos VELASQUEZ Active LOSARTAN POTASSIUM 100 MG TABS 1 pill by mouth daily, for bl ood pressure LOSARTAN POTASSIUM 93670364498 Active Ana Wallace Active AMLODIPINE BESYLATE 5 MG TABS 1 tablet by mouth daily AMLODIPINE BESYLATE 12854742531 No Longer Active Joe Davisdonaldo VALENCIA Active MITIGARE 0.6 MG ORAL CAPS 2 capsules at onset of gout pain, then take one capsule at 1 hour if symptoms persist. COLCHICINE 59 810809982 Active Mitch Urbina DO Active COUMADIN 1 MG TAB 2 tabs orally daily with the 5mg tab to equal 7mg daily WARFARIN SODIUM 40408749951 Active Mitch Urbina DO Active COLCRYS 0.6 MG TABS 1 tab qid prn gout COLCHICINE 87423723690 Active Norma Cazares Active INVOKANA 100 MG ORAL TABS 1 tablet orally daily CANAGLIFLOZIN 83472140749 Active Mitch Urbina DO Active MINOXIDIL 2.5 MG TABS 1 tablet daily for high blood pressure 10/23 MINOXIDIL 71900410890 Active Mitch Urbina DO Active MECLIZINE HCL 25 MG TAB 1 po tid 3 days, then 1/2 tab tid 3 days MECLIZINE HCL 05989615335 No Longer Active Corey SEGURA Active ALLOPURINOL 300 MG TABS Take 1 tablet by mouth daily 2 ALLOPURINOL 18084964367 No Longer Active Corey SEGURA Activ e CLONIDINE HCL 0.1 MG TABS 1 po bid 7 days, then 1/2 tab po b id 7 days CLONIDINE HCL 63213483765 No Longer Active Corey SEGURA Active COUMADIN 5 MG TABS 1 tab PO daily WARFARIN SODIUM 74044666293 Active Mitch Urbina DO Active COUMADIN 4 MG TABS 1 tablet daily WARFARIN SODI UM 45567991710 No Longer Active Corey SEGURA Active POLYTRIM 33188-4.1 UNIT/ML-% SOLN 1 drop in affected e ye every 3 hours while awake x 7 days POLYMYXIN B-TRIMETHOPRIM 87584878315 N o Longer Active Corey SEGURA Active LOSARTAN POTASSIUM-HCTZ 100-12.5 MG TABS 1 by mouth [place] for high blood pressure LOSARTAN POTASSIUM-HCTZ 88109060501 No Longer A ctive Mitch Urbina DO Active LISINOPRIL-HYDROCHLOROTHIAZIDE 20-12.5 MG TABS 1 tab by mouth da rocky LISINOPRIL-HYDROCHLOROTHIAZIDE 39565783227 No Longer Active Mitch Castellano janelle DO Active LISINOPRIL 20 MG TABS 1 tab po at HS LISINOPRIL 43348748296 No Longer Active Mitch Urbina DO Active COUMADIN 5 MG TABS 1 by mouth every other day WARFARIN SODIUM 83379859699 No Longer Active Mitch Urbina DO Active COUMADIN 6 MG TABS 1 by mouth every other day WARFARIN SODIUM 69396318969 No Longer Active Mitch Urbina DO Active SIMVASTATIN 40 MG TABS 1 tab daily at bedtime S IMVASTATIN 18006790381 Active Mitch Urbina DO Active SIMVASTATIN 20 MG TABS 1 tab daily at bedtime S IMVASTATIN 09933326935 No Longer Active Mitch Urbina DO Active LOVENOX 100 MG/ML SC SOLN One injection twice a day 09/15/15 ENOXAPARIN SODIUM 97857896953 No Longer Active Carmine Yusuf MD A ctive JANUVIA 50 MG TABS Take one by mouth daily DIEGO GLIPTIN PHOSPHATE 20106026080 Active Mitch Urbina DO Active JANUVIA 100 MG TABS 1/2 by mouth every day DIEGO GLIPTIN PHOSPHATE 10271617906 No Longer Active Bijal Segal RN Active METFORMIN HCL 500 MG TABS 2 by mouth twice daily METFORMIN HCL 24713140625 Active Mitch Urbina DO Active GLIMEPIRIDE 4 MG TABS 1 tab po bid GLIMEPIRIDE 901622 95304 Active Mitch Urbina DO Active COLCRYS 0.6 MG TABS 1 po q 6 hours prn gout pain 03/02 COLCHICINE 50407254254 No Longer Active Camila Reese Active LISINOPRIL 5 MG TABS 1 by mouth every day LISIN OPRIL 82188394299 No Longer Active Nguyen Perez Active KLOR-CON 20 MEQ PACK Take one by mouth daily 8 POTASSIUM CHLORIDE 24486744931 No Longer Active Nguyen Perez Active FUROSEMIDE 40 MG TABS 1 by mouth daily FUROSEMI DE 92277497974 No Longer Active Nguyenmolly Perez Active PROVIGIL 200 MG TABS 1/2 tab po q day MODAFINIL 54375 946882 Active Mitch Urbina DO Active PROVIGIL 100 MG TABS Take one by mouth daily MO DAFINIL 03903217910 No Longer Active Mitch Urbina DO Active BACTRIM DS 800-160 MG TAB 1 tab by mouth twice daily 2 TRIMETHOPRIM-SULFAMETHOXAZOLE 51977183964 No Longer Active Renan Hays MD Active FAMOTIDINE 20 MG TABS by mouth twice a day FAMOTI DINE 61629686946 Active Mitch Urbina DO Active ADULT ASPIRIN LOW STRENGTH 81 MG TBDP 1 by mouth every daily ASPIRIN 55408064230 Active Mitch Urbina DO Active METOPROLOL TARTRATE 50 MG TABS 1 by mouth twice daily METOPROLOL TARTRATE 78476684870 Active Mitch Urbina DO Active BACTRIM DS 800-160 MG TAB 1 tab by mouth twice daily 2 BACTRIM DS 800-160 MG TAB 325767 TRIMETHOPRIM-SULFAMETHOXAZOLE Inac tive PROVIGIL 100 MG TABS Take one by mouth daily 4 PROVIGIL 100 MG TABS 286359 MODAFINIL Inactive FUROSEMIDE 40 MG TABS 1 by mouth daily FU ROSEMIDE 40 MG TABS 350864 FUROSEMIDE Inactive KLOR-CON 20 MEQ PACK Take one by mouth daily 8 KLOR-CON 20 MEQ PACK POTASSIUM CHLORIDE Inactive LISINOPRIL 5 MG TABS 1 by mouth every day LISINOPRIL 5 MG TABS 070597 LISINOPRIL Inactive COLCRYS 0.6 MG TABS 1 po q 6 hours prn gout pain 03/02 COLCRYS 0.6 MG TABS 978228 COLCHICINE Inactive JANUVIA 100 MG TABS 1/2 by mouth every day JANUVI A 100 MG TABS SITAGLIPTIN PHOSPHATE Inactive SIMVASTATIN 20 MG TABS 1 tab daily at bedtime SIMVASTATIN 20 MG TABS 232919 SIMVASTATIN Inactive COUMADIN 6 MG TABS 1 by mouth every other day COUMADIN 6 MG TABS 666521 WARFARIN SODIUM Inactive COUMADIN 5 MG TABS 1 by mouth every other day COUMADIN 5 MG TABS 326986 WARFARIN SODIUM Inactive LISINOPRIL 20 MG TABS 1 tab po at HS KOKI NOPRIL 20 MG TABS 232595 LISINOPRIL Inactive LISINOPRIL-HYDROCHLOROTHIAZIDE 20-12.5 MG TABS 1 tab by mouth da [place] LISINOPRIL-HYDROCHLOROTHIAZIDE 20-12.5 MG TABS 030772 LISINOPRIL-HYDROCHLOROTHIAZIDE Inactive POLYTRIM 10664-8.1 UNIT/ML-% SOLN 1 drop in affected e ye every 3 hours while awake x 7 days POLYTRIM 54561-9.1 UNIT/ML-% SOLN 75671 7 POLYMYXIN B-TRIMETHOPRIM Inactive COUMADIN 4 MG TABS 1 tablet daily COUMADIN 4 MG TABS 649831 WARFARIN SODIUM Inactive CLONIDINE HCL 0.1 MG TABS 1 po bid 7 days, then 1/2 tab po b id 7 days CLONIDINE HCL 0.1 MG TABS 127028 CLONIDINE HCL I nactive ALLOPURINOL 300 MG TABS Take 1 tablet by mouth daily 2 ALLOPURINOL 300 MG TABS 418700 ALLOPURINOL Inactive MECLIZINE HCL 25 MG TAB 1 po tid 3 days, then 1/2 tab tid 3 days MECLIZINE HCL 25 MG TAB 599514 MECLIZINE HCL Inactive AMLODIPINE BESYLATE 5 MG TABS 1 tablet by mouth daily AMLODIPINE BESYLATE 5 MG TABS 352220 AMLODIPINE BESYLATE Inactive LOVENOX 100 MG/ML SC SOLN One injection twice a day 09/15/15 LOVENOX 100 MG/ML SC SOLN 819911 ENOXAPARIN SODIUM Inactive Vital Signs Date Name [...] - Chem istry sodium, serum 139 mmol/L 713-593 9240/07/17 potassium, serum 4.2 mmol/L 3.5-5.2 chloride, serum 102 mmol/L 98-107 carbon dioxide, venous blood 28.9 mmol/L 21.0-32 .0 blood glucose 211 mg/dL 65-110 calcium, serum 10.6 mg/dL 8.5-10.1 urea nitrogen, blood 29 mg/dL 7-18 creatinine, serum 1.24 mg/dL 0.60-1.30 sodium, serum 141 mmol/L 797-580 5378/08/07 potassium, serum 4.5 mmol/L 3.5-5.2 chloride, serum [...] ... - Chemistry sodium, serum 144 mmol/L 888-256 6119/06/12 carbon dioxide, venous blood 26.6 mmol/L 21.0-32 [...] CBC - Chemistry cholesterol, serum 136 mg/dL 437-624 8617/08/09 triglyceride, serum, fasting 187 mg/dL 30-200 HDL [...] 1.0-3.5 Encounters Code Encounter Date Provider Facility CPT-98824 Level 3 Est. Patient 19:43:34 CDT Mitch luis [facility] CPT-25112 Level 4 Est. Patient 09:30:18 CDT Mitch ulis [facility] CPT-99676 Level 3 Est. Patient 15:10:14 CDT Joe kamara [facility] CPT-97229 Level 3 Est. Patient 15:03:46 CDT Joe kamara [facility] CPT-08651 Level 3 Est. Patient 14:21:06 CDT Mitch luis [facility] CPT-31983 Level 3 Est. Patient 14:52:06 CDT Joe kamara [facility] CPT-35185 Level 3 Est. Patient 09:34:30 PEDIGREE TRACER Mitch luis [facility] CPT-97327 Level 3 Est. Patient 09:37:15 CDT Mitch luis [facility] CPT-43300 Level 3 Est. Patient 17:01:00 PEDIGREE TRACER Mitch luis [facility] CPT-15313 Level 3 Est. Patient 13:53:19 PEDIGREE TRACER Mitch luis [facility] CPT-13604 Level 3 Est. Patient 19:19:37 PEDIGREE TRACER Mitch luis [facility] CPT-17157 Level 3 Est. Patient 13:25:53 PEDIGREE TRACER Tavo toure MD [facility] CPT-66740 Level 3 Est. Patient 18:17:28 CDT Mitch luis [facility] CPT-80254 Level 3 Est. Patient 15:22:57 CDT Mitch luis [facility] CPT-60672 Level 3 Est. Patient 18:21:50 CDT Mitch W L janelle [facility] CPT-95030 Level 3 Est. Patient 18:20:38 CDT Mitch luis [facility] CPT-04005 Level 3 Est. Patient 15:37:55 CDT Mitch luis [facility] CPT-63040 Level 2 Est. Patient 15:54:44 CDT Carmine benton MD [facility] CPT-55961 Level 3 Est. Patient 21:46:01 PEDIGREE TRACER Mitch luis [facility] CPT-89130 Level 3 Est. Patient 22:15:50 CDT Mitch Arnol luis [facility] CPT-88862 Level 3 Est. Patient 10:48:15 CDT Mitch luis [facility] CPT-16827 Level 3 Est. Patient 23:20:57 CDT Tavo toure MD [facility] CPT-71511 Level 3 Est. Patient 16:26:13 CDT Mitch Arnol luis [facility] Procedures Code Procedure Name Date Entry Date Standard Desc ription CPT-14719 Venipuncture Draw Fee 09:26:17 CDT CPT-03605 PT/INR - LAB USE ONLY 13:32:49 PEDIGREE TRACER CPT-14450 Venipuncture Draw Fee 13:32:49 PEDIGREE TRACER CPT-77842 PT/INR - LAB USE ONLY 10:34:49 PEDIGREE TRACER CPT-21444 Venipuncture Draw Fee 10:34:48 PEDIGREE TRACER CPT-91620 PT/INR - LAB USE ONLY 09:22:03 PEDIGREE TRACER CPT-43925 Venipuncture Draw Fee 09:22:02 PEDIGREE TRACER CPT-34251 Hemoccult IFOBT - LAB USE ONLY 10:27:22 CDT CPT-89283 Venipuncture Draw Fee 08:27:08 CDT CPT-46670 Liver Profile - LAB USE ONLY 08:27:07 CDT 2 CPT-36451 Microalbumin - LAB USE ONLY 08:27:07 CDT 20 25/05/09 CPT-30232 PT/INR - LAB USE ONLY 08:27:07 CDT CPT-86611 HGBA1C - LAB USE ONLY 08:27:07 CDT CPT-86346 CBC - LAB USE ONLY 08:27:07 CDT CPT-01234 Venipuncture Draw Fee 11:09:14 CDT CPT-89584 Venipuncture Draw Fee 08:32:21 PEDIGREE TRACER CPT-61671 Venipuncture Draw Fee 09:38:56 PEDIGREE TRACER CPT-93731 No Charge Offi Visit 21:36:07 CDT 1 CPT-61347 Venipuncture Draw Fee 10:13:28 PEDIGREE TRACER CPT-62016 Venipuncture Draw Fee 08:31:11 CDT CPT-35492 Aspir/Inject Med Joint 18:17:28 CDT CPT-43957 Venipuncture Draw Fee 10:13:30 CDT CPT-12184 Venipuncture Draw Fee 08:31:43 PEDIGREE TRACER CPT-JTINJ Joint Injection 18:34:50 CDT CPT-91495 Knee 3V 12:25:09 CDT CPT-19713 Venipuncture Draw Fee 12:15:57 CDT CPT-060 Medical Surveillance Exam 21:31:43 CDT 2011 CPT-44780 Venipuncture Draw Fee 08:32:05 PEDIGREE TRACER CPT-OV Office Visit 18:19:06 CDT
--- OUTSIDE RECORDS SUMMARY | 2020-01-18 13:14 | XMS REPORT | Clinical Summary ---
[...] Coronary atherosclerosis of unspecified type of vessel, [place] or graft EDEMA 782.3 Resolved Mitch Urbina [...] ( 6mg total ) 2015 WARFARIN SODIUM 26456091049 Active Domi Rivera MA Acti ve INVOKANA 100 MG ORAL TABS 1 tablet orally daily CANAGLIFLOZIN 01007020360 Active Kathie Juan RPT,RMA Active MINOXIDIL 2.5 MG TABS 1 tablet daily for high blood pressure 10/23 MINOXIDIL 41238023021 Active Mitch Urbina DO Active AMLODIPINE BESYLATE 5 MG TABS 1 tablet by mouth daily AMLODIPINE BESYLATE 11671972576 Active Domi Rivera MA Active MECLIZINE HCL 25 MG TAB 1 po tid 3 days, then 1/2 tab tid 3 days MECLIZINE HCL 86019046790 No Longer Active Corey SEGURA Active ALLOPURINOL 300 MG TABS Take 1 tablet by mouth daily 2 ALLOPURINOL 24376054500 No Longer Active Corey SEGURA Activ e CLONIDINE HCL 0.1 MG TABS 1 po bid 7 days, then 1/2 tab po b id 7 days CLONIDINE HCL 20548776366 No Longer Active Corey SEGURA Active COUMADIN 5 MG TABS 1 tab PO daily WARFARIN SODIUM 90468136591 Active Domi Rivera MA Active COUMADIN 4 MG TABS 1 tablet daily WARFARIN SODI UM 57111047995 No Longer Active Corey SEGURA Active POLYTRIM 49451-4.1 UNIT/ML-% SOLN 1 drop in affected e ye every 3 hours while awake x 7 days POLYMYXIN B-TRIMETHOPRIM 14534091274 N o Longer Active Corey SEGURA Active LOSARTAN POTASSIUM-HCTZ 100-12.5 MG TABS 1 by mouth da rocky for high blood pressure LOSARTAN POTASSIUM-HCTZ 04941350049 Active Domi Rivera MA Active LISINOPRIL-HYDROCHLOROTHIAZIDE 20-12.5 MG TABS 1 tab by mouth da rocky LISINOPRIL-HYDROCHLOROTHIAZIDE 65200064497 No Longer Active Mitch luis DO Active LISINOPRIL 20 MG TABS 1 tab po at HS LISINOPRIL 23068039113 No Longer Active Mitch Urbina DO Active COUMADIN 5 MG TABS 1 by mouth every other day WARFARIN SODIUM 45267257019 No Longer Active Mitch Urbina DO Active COUMADIN 6 MG TABS 1 by mouth every other day WARFARIN SODIUM 24614279489 No Longer Active Mitch Urbina DO Active COLCRYS 0.6 MG TABS 1 tab qid prn gout COLCHICINE 22930311858 Active Corey SEGURA Active SIMVASTATIN 40 MG TABS 1 tab daily at bedtime S IMVASTATIN 38412226702 Active Domi Rivera MA Active SIMVASTATIN 20 MG TABS 1 tab daily at bedtime S IMVASTATIN 57704259693 No Longer Active Mitch Urbina DO Active LOVENOX 100 MG/ML SC SOLN One injection twice a day 09/15/15 ENOXAPARIN SODIUM 83502301359 No Longer Active Carmine Navarrete ctive JANUVIA 50 MG TABS Take one by mouth daily DIEGO GLIPTIN PHOSPHATE 02796784267 Active Domi Rivera MA Active JANUVIA 100 MG TABS 1/2 by mouth every day DIEGO GLIPTIN PHOSPHATE 05624451857 No Longer Active Bijal Segal RN Active METFORMIN HCL 500 MG TABS 2 by mouth twice daily METFORMIN HCL 91149657328 Active Domi Rivera MA Active GLIMEPIRIDE 4 MG TABS 1 tab po bid GLIMEPIRIDE 257285 46982 Active Domi Rivera MA Active COLCRYS 0.6 MG TABS 1 po q 6 hours prn gout pain 03/02 COLCHICINE 47299670810 No Longer Active Camila Reese Active LISINOPRIL 5 MG TABS 1 by mouth every day LISIN OPRIL 25967414134 No Longer Active Nguyen Perez Active KLOR-CON 20 MEQ PACK Take one by mouth daily 8 POTASSIUM CHLORIDE 78521524530 No Longer Active Nguyenmolly Perez Active FUROSEMIDE 40 MG TABS 1 by mouth daily FUROSEMI DE 48906302328 No Longer Active Nguyenmolly Perez Active PROVIGIL 200 MG TABS 1/2 tab po q day MODAFINIL 63007 317495 Active Domi Rivera MA Active PROVIGIL 100 MG TABS Take one by mouth daily MO DAFINIL 11506001699 No Longer Active Mitch Urbina DO Active BACTRIM DS 800-160 MG TAB 1 tab by mouth twice daily 2 TRIMETHOPRIM-SULFAMETHOXAZOLE 69002016454 No Longer Active Renan Hays MD Active FAMOTIDINE 20 MG TABS by mouth twice a day FAMOTI DINE 09224702192 Active Mitch Urbina DO Active ADULT ASPIRIN LOW STRENGTH 81 MG TBDP 1 by mouth every daily ASPIRIN 15676125458 Active Mitch Urbina DO Active METOPROLOL TARTRATE 50 MG TABS 1 by mouth twice daily METOPROLOL TARTRATE 89273593443 Active Domi Rivera MA Active BACTRIM DS 800-160 MG TAB 1 tab by mouth twice daily 2 BACTRIM DS 800-160 MG TAB 922769 TRIMETHOPRIM-SULFAMETHOXAZOLE Inac tive PROVIGIL 100 MG TABS Take one by mouth daily 4 PROVIGIL 100 MG TABS 043815 MODAFINIL Inactive FUROSEMIDE 40 MG TABS 1 by mouth daily FU ROSEMIDE 40 MG TABS 303599 FUROSEMIDE Inactive KLOR-CON 20 MEQ PACK Take one by mouth daily 8 KLOR-CON 20 MEQ PACK 986182 POTASSIUM CHLORIDE Inactive LISINOPRIL 5 MG TABS 1 by mouth every day LISINOPRIL 5 MG TABS 388539 LISINOPRIL Inactive COLCRYS 0.6 MG TABS 1 po q 6 hours prn gout pain 03/02 COLCRYS 0.6 MG TABS 576591 COLCHICINE Inactive JANUVIA 100 MG TABS 1/2 by mouth every day JANUVI A 100 MG TABS SITAGLIPTIN PHOSPHATE Inactive SIMVASTATIN 20 MG TABS 1 tab daily at bedtime SIMVASTATIN 20 MG TABS 889780 SIMVASTATIN Inactive COUMADIN 6 MG TABS 1 by mouth every other day COUMADIN 6 MG TABS 074660 WARFARIN SODIUM Inactive COUMADIN 5 MG TABS 1 by mouth every other day COUMADIN 5 MG TABS 442779 WARFARIN SODIUM Inactive LISINOPRIL 20 MG TABS 1 tab po at HS KOKI NOPRIL 20 MG TABS 148736 LISINOPRIL Inactive LISINOPRIL-HYDROCHLOROTHIAZIDE 20-12.5 MG TABS 1 tab by mouth da rocky LISINOPRIL-HYDROCHLOROTHIAZIDE 20-12.5 MG TABS 278745 LISINOPRIL-HYDROCHLOROTHIAZIDE Inactive POLYTRIM 14834-1.1 UNIT/ML-% SOLN 1 drop in affected e ye every 3 hours while awake x 7 days POLYTRIM 99866-6.1 UNIT/ML-% SOLN 92039 7 POLYMYXIN B-TRIMETHOPRIM Inactive COUMADIN 4 MG TABS 1 tablet daily COUMADIN 4 MG TABS 365368 WARFARIN SODIUM Inactive CLONIDINE HCL 0.1 MG TABS 1 po bid 7 days, then 1/2 tab po b id 7 days CLONIDINE HCL 0.1 MG TABS 747914 CLONIDINE HCL I nactive ALLOPURINOL 300 MG TABS Take 1 tablet by mouth daily 2 ALLOPURINOL 300 MG TABS 526897 ALLOPURINOL Inactive MECLIZINE HCL 25 MG TAB 1 po tid 3 days, then 1/2 tab tid 3 days MECLIZINE HCL 25 MG TAB 478657 MECLIZINE HCL Inactive LOVENOX 100 MG/ML SC SOLN One injection twice a day 09/15/15 LOVENOX 100 MG/ML SC SOLN 281697 ENOXAPARIN SODIUM Inactive Vital Signs Date Name [...] Ag - Chemistry sodium, serum 141 mmol/L 776-478 7359/07/06 potassium, serum 4.4 mmol/L 3.5-5.2 chloride, serum [...] - Chem istry sodium, serum 136 mmol/L 364-654 9814/01/14 carbon dioxide, venous blood 25.4 mmol/L 21.0-32 [...] 7.0 % 4.3-6.0 cholesterol, serum 120 mg/dL 078-458 3760/07/06 triglyceride, serum, fasting 186 mg/dL 30-200 HDL [...] 1.0-3.5 Encounters Code Encounter Date Provider Facility CPT-43643 Level 3 Est. Patient 09:34:30 EMPLOYEE BENEFITS SPECIALIST Mitch luis [facility] CPT-37683 Level 3 Est. Patient 09:37:15 CDT Mitch luis [facility] CPT-90124 Level 3 Est. Patient 17:01:00 EMPLOYEE BENEFITS SPECIALIST Mitch luis [facility] CPT-01746 Level 3 Est. Patient 13:53:19 EMPLOYEE BENEFITS SPECIALIST Mitch luis [facility] CPT-34570 Level 3 Est. Patient 19:19:37 EMPLOYEE BENEFITS SPECIALIST Mitch luis [facility] CPT-64681 Level 3 Est. Patient 13:25:53 EMPLOYEE BENEFITS SPECIALIST Tavo toure MD [facility] CPT-47444 Level 3 Est. Patient 18:17:28 CDT Mitch luis [facility] CPT-37818 Level 3 Est. Patient 15:22:57 CDT Mitch luis [facility] CPT-39489 Level 3 Est. Patient 18:21:50 CDT Mitch luis [facility] CPT-74974 Level 3 Est. Patient 18:20:38 CDT Mitch luis [facility] CPT-65653 Level 3 Est. Patient 15:37:55 CDT Mitch luis [facility] CPT-75024 Level 2 Est. Patient 15:54:44 CDT Carmine benton MD [facility] CPT-14752 Level 3 Est. Patient 21:46:01 EMPLOYEE BENEFITS SPECIALIST Mitch luis [facility] CPT-50208 Level 3 Est. Patient 22:15:50 CDT Mitch luis [facility] CPT-82625 Level 3 Est. Patient 10:48:15 CDT Mitch luis [facility] CPT-49275 Level 3 Est. Patient 23:20:57 CDT Tavo toure MD [facility] CPT-78567 Level 3 Est. Patient 16:26:13 CDT Mitch luis [facility] Procedures Code Procedure Name Date Entry Date Standard Desc ription CPT-12356 Venipuncture Draw Fee 08:32:21 EMPLOYEE BENEFITS SPECIALIST CPT-42646 Venipuncture Draw Fee 09:38:56 EMPLOYEE BENEFITS SPECIALIST CPT-02311 No Charge Offi Visit 21:36:07 CDT 1 CPT-82470 Venipuncture Draw Fee 10:13:28 EMPLOYEE BENEFITS SPECIALIST CPT-46758 Venipuncture Draw Fee 08:31:11 CDT CPT-22219 Aspir/Inject Med Joint 18:17:28 CDT CPT-38804 Venipuncture Draw Fee 10:13:30 CDT CPT-50255 Venipuncture Draw Fee 08:31:43 EMPLOYEE BENEFITS SPECIALIST CPT-JTINJ Joint Injection 18:34:50 CDT CPT-30150 Knee 3V 12:25:09 CDT CPT-06997 Venipuncture Draw Fee 12:15:57 CDT CPT-060 Medical Surveillance Exam 21:31:43 CDT 2011 CPT-36877 Venipuncture Draw Fee 08:32:05 EMPLOYEE BENEFITS SPECIALIST CPT-OV Office Visit 18:19:06 CDT
--- OUTSIDE RECORDS SUMMARY | 2020-01-18 13:14 | XMS REPORT | Clinical Summary ---
Author Author Admin, Mitch Leon Organization [facility] Address Unknown Phone Unavailable Allergies, Adverse Reactions, [...] atherosclerosis of unspecified type of vessel, [place] or graft EDEMA 782.3 Resolved Mitch Urbina DO Ed an[place] DEGENERATIVE JOINT DISEASE, KNEES, 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 3 Active Mitch Urbina DO Osteoarthrosis, unsp ecified whether generalized or localized, involving lower leg DIZZINESS 780.4 Resolved Mithc Arnol Urbina DO Dizziness and giddiness CAROTID BRUIT, LEFT 785.9 Active Mitch Arnol Urbina DO Other symptoms involving cardiovascular system GOUT, RIGHT WRIST 274.9 Resolved Mitch Arnol rUbina DO Gout, unspecified BRUISE 924.9 Resolved Mitch [...] tab to equal 7mg daily WARFARIN SODIUM 35670988097 Active Kathie Juan RPT,R MA Active COLCRYS 0.6 MG TABS 1 tab qid prn gout COLCHICINE 71689017478 Active Kathie Juan RPT,RMA Active INVOKANA 100 MG ORAL TABS 1 tablet orally daily CANAGLIFLOZIN 46585661429 Active Kathie Juan RPT,RMA Active MINOXIDIL 2.5 MG TABS 1 tablet daily for high blood pressure 10/23 MINOXIDIL 76802353240 Active Mitch Arnol Carlitos DO Active AMLODIPINE BESYLATE 5 MG TABS 1 tablet by mouth daily AMLODIPINE BESYLATE 30845952630 Active Domi Rivera MA Active MECLIZINE HCL 25 MG TAB 1 po tid 3 days, then 1/2 tab tid 3 days MECLIZINE HCL 35246737018 No Longer Active Corey SEGURA Active ALLOPURINOL 300 MG TABS Take 1 tablet by mouth daily 2 ALLOPURINOL 19412609569 No Longer Active Corey SEGURA Activ e CLONIDINE HCL 0.1 MG TABS 1 po bid 7 days, then 1/2 tab po b id 7 days CLONIDINE HCL 57454480096 No Longer Active Corey SEGURA Active COUMADIN 5 MG TABS 1 tab PO daily WARFARIN SODIUM 03334357525 Active Domi Rivera MA Active COUMADIN 4 MG TABS 1 tablet daily WARFARIN SODI UM 27681844704 No Longer Active Corey SEGURA Active POLYTRIM 37438-2.1 UNIT/ML-% SOLN 1 drop in affected e ye every 3 hours while awake x 7 days POLYMYXIN B-TRIMETHOPRIM 87911040161 N o Longer Active Corey SEGURA Active LOS[place]AN POTASSIUM-HCTZ 100-12.5 MG TABS 1 by mouth [place] for high blood pressure LOSARTAN POTASSIUM-HCTZ 47642395876 Active Domi Rivera MA Active LISINOPRIL-HYDROCHLOROTHIAZIDE 20-12.5 MG TABS 1 tab by mouth da rocky LISINOPRIL-HYDROCHLOROTHIAZIDE 47956586012 No Longer Active Mitch luis DO Active LISINOPRIL 20 MG TABS 1 tab po at HS LISINOPRIL 15415831196 No Longer Active Mitch Urbina DO Active COUMADIN 5 MG TABS 1 by mouth every other day WARFARIN SODIUM 63125044450 No Longer Active Mitch Urbina DO Active COUMADIN 6 MG TABS 1 by mouth every other day WARFARIN SODIUM 34658818104 No Longer Active Mitch Urbina DO Active SIMVASTATIN 40 MG TABS 1 tab daily at bedtime S IMVASTATIN 89361547423 Active Domi Rivera MA Active SIMVASTATIN 20 MG TABS 1 tab daily at bedtime S IMVASTATIN 00127740550 No Longer Active Mitch Urbina DO Active LOVENOX 100 MG/ML SC SOLN One injection twice a day 09/15/15 ENOXAPARIN SODIUM 62267725235 No Longer Active Carmine Yusuf MD A ctive JANUVIA 50 MG TABS Take one by mouth daily DIEGO GLIPTIN PHOSPHATE 00551104628 Active Tavo Hilton MD Active JANUVIA 100 MG TABS 1/2 by mouth every day DIEGO GLIPTIN PHOSPHATE 16683779657 No Longer Active Bijal Segal RN Active METFORMIN HCL 500 MG TABS 2 by mouth twice daily METFORMIN HCL 56428171680 Active Mitch Urbina DO Active GLIMEPIRIDE 4 MG TABS 1 tab po bid GLIMEPIRIDE 320832 71233 Active Mitch Urbina DO Active COLCRYS 0.6 MG TABS 1 po q 6 hours prn gout pain 03/02 COLCHICINE 85701682077 No Longer Active Camila Reese Active LISINOPRIL 5 MG TABS 1 by mouth every day LISIN OPRIL 04406547841 No Longer Active Nguyen Perez Active KLOR-CON 20 MEQ PACK Take one by mouth daily 8 POTASSIUM CHLORIDE 65891159649 No Longer Active Nguyen Perez Active FUROSEMIDE 40 MG TABS 1 by mouth daily FUROSEMI DE 45624336292 No Longer Active Nguyen Perez Active PROVIGIL 200 MG TABS 1/2 tab po q day MODAFINIL 51647 853272 Active Curly Coker MD Active PROVIGIL 100 MG TABS Take one by mouth daily MO DAFINIL 16126448256 No Longer Active Mitch Urbina DO Active BACTRIM DS 800-160 MG TAB 1 tab by mouth twice daily 2 TRIMETHOPRIM-SULFAMETHOXAZOLE 43681996982 No Longer Active Renan Hays MD Active FAMOTIDINE 20 MG TABS by mouth twice a day FAMOTI DINE 68354974874 Active Mitch Urbina DO Active ADULT ASPIRIN LOW STRENGTH 81 MG TBDP 1 by mouth every daily ASPIRIN 25413302131 Active Mitch Urbina DO Active METOPROLOL TARTRATE 50 MG TABS 1 by mouth twice daily METOPROLOL TARTRATE 95223477070 Active Domi Rivera MA Active BACTRIM DS 800-160 MG TAB 1 tab by mouth twice daily 2 BACTRIM DS 800-160 MG TAB 439785 TRIMETHOPRIM-SULFAMETHOXAZOLE Inac tive PROVIGIL 100 MG TABS Take one by mouth daily 4 PROVIGIL 100 MG TABS 449558 MODAFINIL Inactive FUROSEMIDE 40 MG TABS 1 by mouth daily FU ROSEMIDE 40 MG TABS 737400 FUROSEMIDE Inactive KLOR-CON 20 MEQ PACK Take one by mouth daily 8 KLOR-CON 20 MEQ PACK 176416 POTASSIUM CHLORIDE Inactive LISINOPRIL 5 MG TABS 1 by mouth every day LISINOPRIL 5 MG TABS 209563 LISINOPRIL Inactive COLCRYS 0.6 MG TABS 1 po q 6 hours prn gout pain 03/02 COLCRYS 0.6 MG TABS 471311 COLCHICINE Inactive JANUVIA 100 MG TABS 1/2 by mouth every day JANUVI A 100 MG TABS SITAGLIPTIN PHOSPHATE Inactive SIMVASTATIN 20 MG TABS 1 tab daily at bedtime SIMVASTATIN 20 MG TABS 519581 SIMVASTATIN Inactive COUMADIN 6 MG TABS 1 by mouth every other day COUMADIN 6 MG TABS 221041 WARFARIN SODIUM Inactive COUMADIN 5 MG TABS 1 by mouth every other day COUMADIN 5 MG TABS 704575 WARFARIN SODIUM Inactive LISINOPRIL 20 MG TABS 1 tab po at HS KOKI NOPRIL 20 MG TABS 025712 LISINOPRIL Inactive LISINOPRIL-HYDROCHLOROTHIAZIDE 20-12.5 MG TABS 1 tab by mouth da rocky LISINOPRIL-HYDROCHLOROTHIAZIDE 20-12.5 MG TABS 145949 LISINOPRIL-HYDROCHLOROTHIAZIDE Inactive POLYTRIM 86552-7.1 UNIT/ML-% SOLN 1 drop in affected e ye every 3 hours while awake x 7 days POLYTRIM 82258-7.1 UNIT/ML-% SOLN 53464 7 POLYMYXIN B-TRIMETHOPRIM Inactive COUMADIN 4 MG TABS 1 tablet daily COUMADIN 4 MG TABS 304509 WARFARIN SODIUM Inactive CLONIDINE HCL 0.1 MG TABS 1 po bid 7 days, then 1/2 tab po b id 7 days CLONIDINE HCL 0.1 MG TABS 042665 CLONIDINE HCL I nactive ALLOPURINOL 300 MG TABS Take 1 tablet by mouth daily 2 ALLOPURINOL 300 MG TABS 536469 ALLOPURINOL Inactive MECLIZINE HCL 25 MG TAB 1 po tid 3 days, then 1/2 tab tid 3 days MECLIZINE HCL 25 MG TAB 308616 MECLIZINE HCL Inactive LOVENOX 100 MG/ML SC SOLN One injection twice a day 20 09/15/15 LOVENOX 100 MG/ML SC SOLN 345253 ENOXAPARIN SODIUM Inactive Vital Signs Date Name [...] 11 .6-14.8 platelet count 276 10^3/MM^3 10*3/mm3 971-010 5350/01/14 leukocyte count, blood 7.1 10^3/MM^3 10*3/mm3 4.6-10.2 Lab Report: Comp. Metabolic Panel - Chem istry carbon dioxide, venous blood 25.4 mmol/L 21.0-32 .0 potassium, serum 4.2 mmol/L 3.5-5.2 chloride, serum 100 mmol/L 98-107 blood glucose 241 mg/dL 65-110 sodium, serum 136 mmol/L 383-533 7418/01/14 creatinine, serum 1.11 mg/dL 0.55-1.30 alanine aminotransferase (SGPT), serum 37 U/L 12-78 aspartate aminotransferase (SGOT), serum 26 U/L 15-37 calcium, serum 9.7 mg/dL 8.5-10.1 bilirubin, serum, total 0.70 mg/dL 0.00-1.00 urea nitrogen, blood 25 mg/dL 7-18 Lab [...] CBC - Chemistry cholesterol, serum 136 mg/dL 699-845 8527/08/09 triglyceride, serum, fasting 187 mg/dL 30-200 HDL [...] 15.8 SECS s 11.1-13.4 prothrombin time (patient) 15.4 SECS s 11.1-13.4 international normalized ratio (INR) 1.5 1.0-3.5 Encounters Code Encounter Date Provider Facility CPT-54437 Level 3 Est. Patient 09:34:30 HOT MOLDER Mitch luis [facility] CPT-15717 Level 3 Est. Patient 09:37:15 CDT Mitch luis [facility] CPT-63181 Level 3 Est. Patient 17:01:00 HOT MOLDER Mitch luis [facility] CPT-25561 Level 3 Est. Patient 13:53:19 HOT MOLDER Mitch luis [facility] CPT-53821 Level 3 Est. Patient 19:19:37 HOT MOLDER Mitch luis [facility] CPT-96892 Level 3 Est. Patient 13:25:53 HOT MOLDER Tavo toure MD [facility] CPT-02561 Level 3 Est. Patient 18:17:28 CDT Mitch luis [facility] CPT-33277 Level 3 Est. Patient 15:22:57 CDT Mitch luis [facility] CPT-37373 Level 3 Est. Patient 18:21:50 CDT Mitch luis [facility] CPT-20621 Level 3 Est. Patient 18:20:38 CDT Mitch luis [facility] CPT-47003 Level 3 Est. Patient 15:37:55 CDT Mitch luis [facility] CPT-37071 Level 2 Est. Patient 15:54:44 CDT Carmine benton MD [facility]-77175 Level 3 Est. Patient 21:46:01 HOT MOLDER Mitch luis [facility] CPT-47246 Level 3 Est. Patient 22:15:50 CDT Mitch luis [facility] CPT-49287 Level 3 Est. Patient 10:48:15 CDT Mitch luis [facility] CPT-70629 Level 3 Est. Patient 23:20:57 CDT Tavo toure MD [facility]-48732 Level 3 Est. Patient 16:26:13 CDT Mitch Arnol luis [facility] Procedures Code Procedure Name Date Entry Date Standard Desc ription CPT-62802 Hemoccult IFOBT - LAB USE ONLY 10:27:22 CDT CPT-95156 Venipuncture Draw Fee 08:27:08 CDT CPT-76026 Liver Profile - LAB USE ONLY 08:27:07 CDT 2 CPT-07262 Microalbumin - LAB USE ONLY 08:27:07 CDT 20 25/05/09 CPT-66568 PT/INR - LAB USE ONLY 08:27:07 CDT CPT-66802 HGBA1C - LAB USE ONLY 08:27:07 CDT CPT-88564 CBC - LAB USE ONLY 08:27:07 CDT CPT-36192 Venipuncture Draw Fee 11:09:14 CDT CPT-84344 Venipuncture Draw Fee 08:32:21 HOT MOLDER CPT-92844 Venipuncture Draw Fee 09:38:56 HOT MOLDER CPT-83652 No Charge Offi Visit 21:36:07 CDT 1 CPT-99765 Venipuncture Draw Fee 10:13:28 HOT MOLDER CPT-51920 Venipuncture Draw Fee 08:31:11 CDT CPT-34119 Aspir/Inject Med Joint 18:17:28 CDT CPT-23191 Venipuncture Draw Fee 10:13:30 CDT CPT-23421 Venipuncture Draw Fee 08:31:43 HOT MOLDER CPT-JTINJ Joint Injection 18:34:50 CDT CPT-43669 Knee 3V 12:25:09 CDT CPT-49564 Venipuncture Draw Fee 12:15:57 CDT CPT-060 Medical Surveillance Exam 21:31:43 CDT 2011 CPT-36924 Venipuncture Draw Fee 08:32:05 HOT MOLDER CPT-OV Office Visit 18:19:06 CDT
--- OUTSIDE RECORDS SUMMARY | 2020-01-18 13:14 | XMS REPORT | Clinical Summary ---
Author Author Admin, Mitch Leon Organization [facility] Address Unknown Phone Unavailable Allergies, [...] Coronary atherosclerosis of unspecified type of vessel, [place] or graft EDEMA 782.3 Resolved Mitch Urbina [...] ( 6mg total ) 2015 WARFARIN SODIUM 34361368230 Active Domi Rivera MA Acti ve INVOKANA 100 MG ORAL TABS 1 tablet orally daily CANAGLIFLOZIN 16456832520 Active Kathie Juan RPT,RMA Active MINOXIDIL 2.5 MG TABS 1 tablet daily for high blood pressure 10/23 MINOXIDIL 55553481713 Active Mitch Urbina DO Active AMLODIPINE BESYLATE 5 MG TABS 1 tablet by mouth daily AMLODIPINE BESYLATE 29249474676 Active Domi Rivera MA Active MECLIZINE HCL 25 MG TAB 1 po tid 3 days, then 1/2 tab tid 3 days MECLIZINE HCL 16501718503 No Longer Active Corey SEGURA Active ALLOPURINOL 300 MG TABS Take 1 tablet by mouth daily 2 ALLOPURINOL 62696733394 No Longer Active Corey SEGURA Activ e CLONIDINE HCL 0.1 MG TABS 1 po bid 7 days, then 1/2 tab po b id 7 days CLONIDINE HCL 40171422834 No Longer Active Corey SEGURA Active COUMADIN 5 MG TABS 1 tab PO daily WARFARIN SODIUM 33569387234 Active Domi Rivera MA Active COUMADIN 4 MG TABS 1 tablet daily WARFARIN SODI UM 86640994593 No Longer Active Corey SEGURA Active POLYTRIM 28198-1.1 UNIT/ML-% SOLN 1 drop in affected e ye every 3 hours while awake x 7 days POLYMYXIN B-TRIMETHOPRIM 47625704629 N o Longer Active Corey SEGURA Active LOSARTAN POTASSIUM-HCTZ 100-12.5 MG TABS 1 by mouth da rocky for high blood pressure LOSARTAN POTASSIUM-HCTZ 55428187640 Active Domi Rivera MA Active LISINOPRIL-HYDROCHLOROTHIAZIDE 20-12.5 MG TABS 1 tab by mouth da rocky LISINOPRIL-HYDROCHLOROTHIAZIDE 13167416893 No Longer Active Mitch luis DO Active LISINOPRIL 20 MG TABS 1 tab po at HS LISINOPRIL 73093327877 No Longer Active Mitch Urbina DO Active COUMADIN 5 MG TABS 1 by mouth every other day WARFARIN SODIUM 08208278349 No Longer Active Mitch Urbina DO Active COUMADIN 6 MG TABS 1 by mouth every other day WARFARIN SODIUM 18808562947 No Longer Active Mitch Urbina DO Active COLCRYS 0.6 MG TABS 1 tab qid prn gout COLCHICINE 40058980546 Active Corey SEGURA Active SIMVASTATIN 40 MG TABS 1 tab daily at bedtime S IMVASTATIN 34297965979 Active Domi Rivera MA Active SIMVASTATIN 20 MG TABS 1 tab daily at bedtime S IMVASTATIN 75947491799 No Longer Active Mitch Urbina DO Active LOVENOX 100 MG/ML SC SOLN One injection twice a day 09/15/15 ENOXAPARIN SODIUM 68581641050 No Longer Active Carmine Navarrete ctive JANUVIA 50 MG TABS Take one by mouth daily DIEGO GLIPTIN PHOSPHATE 08942686051 Active Domi Rivera MA Active JANUVIA 100 MG TABS 1/2 by mouth every day DIEGO GLIPTIN PHOSPHATE 44541737832 No Longer Active Bijal Segal RN Active METFORMIN HCL 500 MG TABS 2 by mouth twice daily METFORMIN HCL 29979156498 Active Kathie Juan RPT,RMA Active GLIMEPIRIDE 4 MG TABS 1 tab po bid GLIMEPIRIDE 675297 73175 Active Kathie Juan RPT,RMA Active COLCRYS 0.6 MG TABS 1 po q 6 hours prn gout pain 03/02 COLCHICINE 63582268817 No Longer Active Camila Reese Active LISINOPRIL 5 MG TABS 1 by mouth every day LISIN OPRIL 99631458001 No Longer Active Nguyen Perez Active KLOR-CON 20 MEQ PACK Take one by mouth daily 8 POTASSIUM CHLORIDE 16333854849 No Longer Active Nguyen Perez Active FUROSEMIDE 40 MG TABS 1 by mouth daily FUROSEMI DE 47055764442 No Longer Active Nguyenmolly Perez Active PROVIGIL 200 MG TABS 1/2 tab po q day MODAFINIL 11860 714082 Active Domi Rivera MA Active PROVIGIL 100 MG TABS Take one by mouth daily MO DAFINIL 77169361084 No Longer Active Mitch Urbina DO Active BACTRIM DS 800-160 MG TAB 1 tab by mouth twice daily 2 TRIMETHOPRIM-SULFAMETHOXAZOLE 72538863715 No Longer Active Renan Hays MD Active FAMOTIDINE 20 MG TABS by mouth twice a day FAMOTI DINE 12594593902 Active Mitch Urbina DO Active ADULT ASPIRIN LOW STRENGTH 81 MG TBDP 1 by mouth every daily ASPIRIN 69095553742 Active Mitch Urbina DO Active METOPROLOL TARTRATE 50 MG TABS 1 by mouth twice daily METOPROLOL TARTRATE 58849066017 Active Domi Rivera MA Active BACTRIM DS 800-160 MG TAB 1 tab by mouth twice daily 2 BACTRIM DS 800-160 MG TAB 346406 TRIMETHOPRIM-SULFAMETHOXAZOLE Inac tive PROVIGIL 100 MG TABS Take one by mouth daily 4 PROVIGIL 100 MG TABS 594262 MODAFINIL Inactive FUROSEMIDE 40 MG TABS 1 by mouth daily FU ROSEMIDE 40 MG TABS 650088 FUROSEMIDE Inactive KLOR-CON 20 MEQ PACK Take one by mouth daily 8 KLOR-CON 20 MEQ PACK 155617 POTASSIUM CHLORIDE Inactive LISINOPRIL 5 MG TABS 1 by mouth every day LISINOPRIL 5 MG TABS 579701 LISINOPRIL Inactive COLCRYS 0.6 MG TABS 1 po q 6 hours prn gout pain 03/02 COLCRYS 0.6 MG TABS 290509 COLCHICINE Inactive JANUVIA 100 MG TABS 1/2 by mouth every day JANUVI A 100 MG TABS SITAGLIPTIN PHOSPHATE Inactive SIMVASTATIN 20 MG TABS 1 tab daily at bedtime SIMVASTATIN 20 MG TABS 641512 SIMVASTATIN Inactive COUMADIN 6 MG TABS 1 by mouth every other day COUMADIN 6 MG TABS 978775 WARFARIN SODIUM Inactive COUMADIN 5 MG TABS 1 by mouth every other day COUMADIN 5 MG TABS 714972 WARFARIN SODIUM Inactive LISINOPRIL 20 MG TABS 1 tab po at HS KOKI NOPRIL 20 MG TABS 728320 LISINOPRIL Inactive LISINOPRIL-HYDROCHLOROTHIAZIDE 20-12.5 MG TABS 1 tab by mouth da [place] LISINOPRIL-HYDROCHLOROTHIAZIDE 20-12.5 MG TABS 825524 LISINOPRIL-HYDROCHLOROTHIAZIDE Inactive POLYTRIM 07398-6.1 UNIT/ML-% SOLN 1 drop in affected e ye every 3 hours while awake x 7 days POLYTRIM 16468-5.1 UNIT/ML-% SOLN 32582 7 POLYMYXIN B-TRIMETHOPRIM Inactive COUMADIN 4 MG TABS 1 tablet daily COUMADIN 4 MG TABS 092643 WARFARIN SODIUM Inactive CLONIDINE HCL 0.1 MG TABS 1 po bid 7 days, then 1/2 tab po b id 7 days CLONIDINE HCL 0.1 MG TABS 144266 CLONIDINE HCL I nactive ALLOPURINOL 300 MG TABS Take 1 tablet by mouth daily 2 ALLOPURINOL 300 MG TABS 344417 ALLOPURINOL Inactive MECLIZINE HCL 25 MG TAB 1 po tid 3 days, then 1/2 tab tid 3 days MECLIZINE HCL 25 MG TAB 900440 MECLIZINE HCL Inactive LOVENOX 100 MG/ML SC SOLN One injection twice a day 09/15/15 LOVENOX 100 MG/ML SC SOLN 607293 ENOXAPARIN SODIUM Inactive Vital Signs Date Name [...] Range Description Chart Maintenance: [facility] - Chemistry occult blood, stool (E&M) Positive [...] Ag - Chemistry sodium, serum 141 mmol/L 818-661 1681/07/06 potassium, serum 4.4 mmol/L 3.5-5.2 chloride, serum [...] - Chem istry sodium, serum 136 mmol/L 684-728 9456/01/14 carbon dioxide, venous blood 25.4 mmol/L 21.0-32 [...] 7.0 % 4.3-6.0 cholesterol, serum 120 mg/dL 342-183 3760/07/06 triglyceride, serum, fasting 186 mg/dL 30-200 [...] 1.0-3.5 Encounters Code Encounter Date Provider Facility CPT-97390 Level 3 Est. Patient 09:34:30 SENIOR BUYER PLANNER Mitch luis [facility] CPT-56396 Level 3 Est. Patient 09:37:15 CDT Mitch luis [facility] CPT-38630 Level 3 Est. Patient 17:01:00 SENIOR BUYER PLANNER Mitch luis [facility] CPT-76204 Level 3 Est. Patient 13:53:19 SENIOR BUYER PLANNER Mitch luis [facility] CPT-21841 Level 3 Est. Patient 19:19:37 SENIOR BUYER PLANNER Mitch luis [facility] CPT-20348 Level 3 Est. Patient 13:25:53 SENIOR BUYER PLANNER Tavo toure MD [facility] CPT-28584 Level 3 Est. Patient 18:17:28 CDT Mitch luis [facility] CPT-66392 Level 3 Est. Patient 15:22:57 CDT Mitch luis [facility] CPT-83497 Level 3 Est. Patient 18:21:50 CDT Mitch luis [facility] CPT-19060 Level 3 Est. Patient 18:20:38 CDT Mitch luis [facility] CPT-52882 Level 3 Est. Patient 15:37:55 CDT Mitch luis [facility] CPT-32051 Level 2 Est. Patient 15:54:44 CDT Carmine benton MD [facility] CPT-56152 Level 3 Est. Patient 21:46:01 SENIOR BUYER PLANNER Mitch luis [facility] CPT-38858 Level 3 Est. Patient 22:15:50 CDT Mitch luis [facility] CPT-42422 Level 3 Est. Patient 10:48:15 CDT Mitch luis [facility] CPT-49666 Level 3 Est. Patient 23:20:57 CDT Tavo toure MD [facility] CPT-12177 Level 3 Est. Patient 16:26:13 CDT Mitch luis [facility] Procedures Code Procedure Name Date Entry Date Standard Desc ription CPT-04139 Venipuncture Draw Fee 08:32:21 SENIOR BUYER PLANNER CPT-43748 Venipuncture Draw Fee 09:38:56 SENIOR BUYER PLANNER CPT-09660 No Charge Offi Visit 21:36:07 CDT 1 CPT-35560 Venipuncture Draw Fee 10:13:28 SENIOR BUYER PLANNER CPT-62213 Venipuncture Draw Fee 08:31:11 CDT CPT-50394 Aspir/Inject Med Joint 18:17:28 CDT CPT-27434 Venipuncture Draw Fee 10:13:30 CDT CPT-65631 Venipuncture Draw Fee 08:31:43 SENIOR BUYER PLANNER CPT-JTINJ Joint Injection 18:34:50 CDT CPT-86450 Knee 3V 12:25:09 CDT CPT-21453 Venipuncture Draw Fee 12:15:57 CDT CPT-060 Medical Surveillance Exam 21:31:43 CDT 2011 CPT-89050 Venipuncture Draw Fee 08:32:05 SENIOR BUYER PLANNER CPT-OV Office Visit 18:19:06 CDT
--- OUTSIDE RECORDS SUMMARY | 2020-01-18 13:15 | XMS REPORT | Clinical Summary ---
Author Author Admin, Mitch Leon Organization [facility] [employer] Address Unknown Phone Unavailable Allergies, Adverse Reactions, [...] Coronary atherosclerosis of unspecified type of vessel, [place] or graft EDEMA 782.3 Resolved Mitch [...] tab to equal 7mg daily WARFARIN SODIUM 28396725835 Active Kathie Juan RPT,R MA Active COLCRYS 0.6 MG TABS 1 tab qid prn gout COLCHICINE 66804037603 Active Kathie Juan RPT,RMA Active INVOKANA 100 MG ORAL TABS 1 tablet orally daily CANAGLIFLOZIN 88893731474 Active Kathie Juan RPT,RMA Active MINOXIDIL 2.5 MG TABS 1 tablet daily for high blood pressure 10/23 MINOXIDIL 87212150627 Active Mitch Urbina DO Active AMLODIPINE BESYLATE 5 MG TABS 1 tablet by mouth daily AMLODIPINE BESYLATE 48049436613 Active Domi Rivera MA Active MECLIZINE HCL 25 MG TAB 1 po tid 3 days, then 1/2 tab tid 3 days MECLIZINE HCL 99477564985 No Longer Active Corey SEGURA Active ALLOPURINOL 300 MG TABS Take 1 tablet by mouth daily 2 ALLOPURINOL 76622391857 No Longer Active Corey SEGURA Activ e CLONIDINE HCL 0.1 MG TABS 1 po bid 7 days, then 1/2 tab po b id 7 days CLONIDINE HCL 62057998927 No Longer Active Corey SEGURA Active COUMADIN 5 MG TABS 1 tab PO daily WARFARIN SODIUM 51644083933 Active Domi Rivera MA Active COUMADIN 4 MG TABS 1 tablet daily WARFARIN SODI UM 47421903459 No Longer Active Corey SEGURA Active POLYTRIM 04310-2.1 UNIT/ML-% SOLN 1 drop in affected e ye every 3 hours while awake x 7 days POLYMYXIN B-TRIMETHOPRIM 28656130292 N o Longer Active Corey SEGURA Active LOSARTAN POTASSIUM-HCTZ 100-12.5 MG TABS 1 by mouth [place] for high blood pressure LOSARTAN POTASSIUM-HCTZ 48766070949 Active Domi Rivera MA Active LISINOPRIL-HYDROCHLOROTHIAZIDE 20-12.5 MG TABS 1 tab by mouth da rocky LISINOPRIL-HYDROCHLOROTHIAZIDE 04641193210 No Longer Active Mitch luis DO Active LISINOPRIL 20 MG TABS 1 tab po at HS LISINOPRIL 61615942608 No Longer Active Micth Urbina DO Active COUMADIN 5 MG TABS 1 by mouth every other day WARFARIN SODIUM 39611861034 No Longer Active Mitch Urbina DO Active COUMADIN 6 MG TABS 1 by mouth every other day WARFARIN SODIUM 57924789865 No Longer Active Mitch Urbina DO Active SIMVASTATIN 40 MG TABS 1 tab daily at bedtime S IMVASTATIN 54755176509 Active Domi Rivera MA Active SIMVASTATIN 20 MG TABS 1 tab daily at bedtime S IMVASTATIN 92063973035 No Longer Active Mitch Urbina DO Active LOVENOX 100 MG/ML SC SOLN One injection twice a day 09/15/15 ENOXAPARIN SODIUM 40544456871 No Longer Active Carmine Navarrete ctive JANUVIA 50 MG TABS Take one by mouth daily DIEGO GLIPTIN PHOSPHATE 49586335271 Active Domi Rivera MA Active JANUVIA 100 MG TABS 1/2 by mouth every day DIEGO GLIPTIN PHOSPHATE 76982043797 No Longer Active Bijal Segal RN Active METFORMIN HCL 500 MG TABS 2 by mouth twice daily METFORMIN HCL 39024418792 Active Mitch Urbina DO Active GLIMEPIRIDE 4 MG TABS 1 tab po bid GLIMEPIRIDE 176029 82670 Active Mitch Urbina DO Active COLCRYS 0.6 MG TABS 1 po q 6 hours prn gout pain 03/02 COLCHICINE 70838722055 No Longer Active Camila eRese Active LISINOPRIL 5 MG TABS 1 by mouth every day LISIN OPRIL 07416022344 No Longer Active Nguyen Perez Active KLOR-CON 20 MEQ PACK Take one by mouth daily 8 POTASSIUM CHLORIDE 83370402443 No Longer Active Nguyen Perez Active FUROSEMIDE 40 MG TABS 1 by mouth daily FUROSEMI DE 18353145935 No Longer Active Nguyen Perez Active PROVIGIL 200 MG TABS 1/2 tab po q day MODAFINIL 76165 825038 Active Domi Rivera MA Active PROVIGIL 100 MG TABS Take one by mouth daily MO DAFINIL 38493197516 No Longer Active Mitch Urbina DO Active BACTRIM DS 800-160 MG TAB 1 tab by mouth twice daily 2 TRIMETHOPRIM-SULFAMETHOXAZOLE 10855636836 No Longer Active Renan Hays MD Active FAMOTIDINE 20 MG TABS by mouth twice a day FAMOTI DINE 96688904890 Active Mitch Urbina DO Active ADULT ASPIRIN LOW STRENGTH 81 MG TBDP 1 by mouth every daily ASPIRIN 77219454903 Active Mitch Urbina DO Active METOPROLOL TARTRATE 50 MG TABS 1 by mouth twice daily METOPROLOL TARTRATE 32441273116 Active Domi Rivera MA Active BACTRIM DS 800-160 MG TAB 1 tab by mouth twice daily 2 BACTRIM DS 800-160 MG TAB 959539 TRIMETHOPRIM-SULFAMETHOXAZOLE Inac tive PROVIGIL 100 MG TABS Take one by mouth daily 4 PROVIGIL 100 MG TABS 820449 MODAFINIL Inactive FUROSEMIDE 40 MG TABS 1 by mouth daily FU ROSEMIDE 40 MG TABS 683727 FUROSEMIDE Inactive KLOR-CON 20 MEQ PACK Take one by mouth daily 8 KLOR-CON 20 MEQ PACK 751746 POTASSIUM CHLORIDE Inactive LISINOPRIL 5 MG TABS 1 by mouth every day LISINOPRIL 5 MG TABS 408738 LISINOPRIL Inactive COLCRYS 0.6 MG TABS 1 po q 6 hours prn gout pain 03/02 COLCRYS 0.6 MG TABS 292421 COLCHICINE Inactive JANUVIA 100 MG TABS 1/2 by mouth every day JANUVI A 100 MG TABS SITAGLIPTIN PHOSPHATE Inactive SIMVASTATIN 20 MG TABS 1 tab daily at bedtime SIMVASTATIN 20 MG TABS 673631 SIMVASTATIN Inactive COUMADIN 6 MG TABS 1 by mouth every other day COUMADIN 6 MG TABS 046065 WARFARIN SODIUM Inactive COUMADIN 5 MG TABS 1 by mouth every other day COUMADIN 5 MG TABS 086962 WARFARIN SODIUM Inactive LISINOPRIL 20 MG TABS 1 tab po at HS KOKI NOPRIL 20 MG TABS 104576 LISINOPRIL Inactive LISINOPRIL-HYDROCHLOROTHIAZIDE 20-12.5 MG TABS 1 tab by mouth da [place] LISINOPRIL-HYDROCHLOROTHIAZIDE 20-12.5 MG TABS 731342 LISINOPRIL-HYDROCHLOROTHIAZIDE Inactive POLYTRIM 10763-4.1 UNIT/ML-% SOLN 1 drop in affected e ye every 3 hours while awake x 7 days POLYTRIM 05792-3.1 UNIT/ML-% SOLN 73645 7 POLYMYXIN B-TRIMETHOPRIM Inactive COUMADIN 4 MG TABS 1 tablet daily COUMADIN 4 MG TABS 178153 WARFARIN SODIUM Inactive CLONIDINE HCL 0.1 MG TABS 1 po bid 7 days, then 1/2 tab po b id 7 days CLONIDINE HCL 0.1 MG TABS 404644 CLONIDINE HCL I nactive ALLOPURINOL 300 MG TABS Take 1 tablet by mouth daily 2 ALLOPURINOL 300 MG TABS 137896 ALLOPURINOL Inactive MECLIZINE HCL 25 MG TAB 1 po tid 3 days, then 1/2 tab tid 3 days MECLIZINE HCL 25 MG TAB 814333 MECLIZINE HCL Inactive LOVENOX 100 MG/ML SC SOLN One injection twice a day 20 09/15/15 LOVENOX 100 MG/ML SC SOLN 980937 ENOXAPARIN SODIUM Inactive Vital Signs Date Name [...] - Chem istry sodium, serum 136 mmol/L 233-546 7030/01/14 carbon dioxide, venous blood 25.4 mmol/L 21.0-32 [...] 1.0-3.5 Encounters Code Encounter Date Provider Facility CPT-70125 Level 3 Est. Patient 09:34:30 ACADEMIC ADVISEMENT DIRECTOR Mitch luis [facility] CPT-62306 Level 3 Est. Patient 09:37:15 CDT Mitch luis [facility] CPT-59359 Level 3 Est. Patient 17:01:00 ACADEMIC ADVISEMENT DIRECTOR Mitch luis [facility] CPT-30577 Level 3 Est. Patient 13:53:19 ACADEMIC ADVISEMENT DIRECTOR Mitch luis [facility] CPT-08995 Level 3 Est. Patient 19:19:37 ACADEMIC ADVISEMENT DIRECTOR Mitch luis [facility] CPT-15734 Level 3 Est. Patient 13:25:53 ACADEMIC ADVISEMENT DIRECTOR Tavo toure MD [facility] CPT-58710 Level 3 Est. Patient 18:17:28 CDT Mitch luis [facility] CPT-38898 Level 3 Est. Patient 15:22:57 CDT Mitch luis [facility] CPT-26080 Level 3 Est. Patient 18:21:50 CDT Mitch luis [facility] CPT-46438 Level 3 Est. Patient 18:20:38 CDT Mitch luis [facility] CPT-53182 Level 3 Est. Patient 15:37:55 CDT Mitch luis [facility] CPT-74552 Level 2 Est. Patient 15:54:44 CDT Carmine benton MD [facility]-50885 Level 3 Est. Patient 21:46:01 ACADEMIC ADVISEMENT DIRECTOR Mitch luis [facility] CPT-46507 Level 3 Est. Patient 22:15:50 CDT Mitch luis [facility] CPT-01027 Level 3 Est. Patient 10:48:15 CDT Mitch Arnol L janelle [facility] CPT-84171 Level 3 Est. Patient 23:20:57 CDT Tavo toure MD [facility] CPT-47763 Level 3 Est. Patient 16:26:13 CDT Mitch Castellano janelle [facility] Procedures Code Procedure Name Date Entry Date Standard Desc ription CPT-52939 Venipuncture Draw Fee 11:09:14 CDT CPT-87141 Venipuncture Draw Fee 08:32:21 ACADEMIC ADVISEMENT DIRECTOR CPT-40708 Venipuncture Draw Fee 09:38:56 ACADEMIC ADVISEMENT DIRECTOR CPT-22173 No Charge Offi Visit 21:36:07 CDT 1 CPT-47885 Venipuncture Draw Fee 10:13:28 ACADEMIC ADVISEMENT DIRECTOR CPT-98430 Venipuncture Draw Fee 08:31:11 CDT CPT-71415 Aspir/Inject Med Joint 18:17:28 CDT CPT-51677 Venipuncture Draw Fee 10:13:30 CDT CPT-75774 Venipuncture Draw Fee 08:31:43 ACADEMIC ADVISEMENT DIRECTOR CPT-JTINJ Joint Injection 18:34:50 CDT CPT-19820 Knee 3V 12:25:09 CDT CPT-13488 Venipuncture Draw Fee 12:15:57 CDT CPT-060 Medical Surveillance Exam 21:31:43 CDT 2011 CPT-00652 Venipuncture Draw Fee 08:32:05 ACADEMIC ADVISEMENT DIRECTOR CPT-OV Office Visit 18:19:06 CDT
--- OUTSIDE RECORDS SUMMARY | 2020-01-18 13:15 | XMS REPORT | Clinical Summary ---
Author Author Admin, Mitch Leon Organization [facility] [employer] Address Unknown Phone Unavailable Allergies, Adverse Reactions, [...] tab to equal 7mg daily WARFARIN SODIUM 12829667053 Active Kathie Juan RPT,R MA Active COLCRYS 0.6 MG TABS 1 tab qid prn gout COLCHICINE 21790803909 Active Kathie Juan RPT,RMA Active INVOKANA 100 MG ORAL TABS 1 tablet orally daily CANAGLIFLOZIN 78343231181 Active Kathie Juan RPT,RMA Active MINOXIDIL 2.5 MG TABS 1 tablet daily for high blood pressure 10/23 MINOXIDIL 76987403123 Active Mitch Urbina DO Active AMLODIPINE BESYLATE 5 MG TABS 1 tablet by mouth daily AMLODIPINE BESYLATE 33469121022 Active Domi Rivera MA Active MECLIZINE HCL 25 MG TAB 1 po tid 3 days, then 1/2 tab tid 3 days MECLIZINE HCL 34796330826 No Longer Active Corey SEGURA Active ALLOPURINOL 300 MG TABS Take 1 tablet by mouth daily 2 ALLOPURINOL 20662446834 No Longer Active Corey SEGURA Activ e CLONIDINE HCL 0.1 MG TABS 1 po bid 7 days, then 1/2 tab po b id 7 days CLONIDINE HCL 04952062952 No Longer Active Corey SEGURA Active COUMADIN 5 MG TABS 1 tab PO daily WARFARIN SODIUM 59013184137 Active Domi Rivera MA Active COUMADIN 4 MG TABS 1 tablet daily WARFARIN SODI UM 66122070834 No Longer Active Corey SEGURA Active POLYTRIM 62020-0.1 UNIT/ML-% SOLN 1 drop in affected e ye every 3 hours while awake x 7 days POLYMYXIN B-TRIMETHOPRIM 56163767157 N o Longer Active Corey SEGURA Active LOSARTAN POTASSIUM-HCTZ 100-12.5 MG TABS 1 by mouth da [place] for high blood pressure LOSARTAN POTASSIUM-HCTZ 92565761897 Active Domi Rivera MA Active LISINOPRIL-HYDROCHLOROTHIAZIDE 20-12.5 MG TABS 1 tab by mouth da [place] LISINOPRIL-HYDROCHLOROTHIAZIDE 10710704320 No Longer Active Mitch luis DO Active LISINOPRIL 20 MG TABS 1 tab po at HS LISINOPRIL 64024428801 No Longer Active Mitch Urbina DO Active COUMADIN 5 MG TABS 1 by mouth every other day WARFARIN SODIUM 32632361156 No Longer Active Mitch Urbina DO Active COUMADIN 6 MG TABS 1 by mouth every other day WARFARIN SODIUM 43315290103 No Longer Active Mitch Urbina DO Active SIMVASTATIN 40 MG TABS 1 tab daily at bedtime S IMVASTATIN 59458282704 Active Domi Rivera MA Active SIMVASTATIN 20 MG TABS 1 tab daily at bedtime S IMVASTATIN 80357892192 No Longer Active Mitch Urbina DO Active LOVENOX 100 MG/ML SC SOLN One injection twice a day 09/15/15 ENOXAPARIN SODIUM 72066990067 No Longer Active Carmine Yusuf MD A ctive JANUVIA 50 MG TABS Take one by mouth daily DIEGO GLIPTIN PHOSPHATE 32544179692 Active Tavo Hilton MD Active JANUVIA 100 MG TABS 1/2 by mouth every day DIEGO GLIPTIN PHOSPHATE 23637721186 No Longer Active Bijal Segal RN Active METFORMIN HCL 500 MG TABS 2 by mouth twice daily METFORMIN HCL 02139679065 Active Mitch Urbina DO Active GLIMEPIRIDE 4 MG TABS 1 tab po bid GLIMEPIRIDE 009482 53712 Active Mitch Urbina DO Active COLCRYS 0.6 MG TABS 1 po q 6 hours prn gout pain 03/02 COLCHICINE 59167137431 No Longer Active Camila Reese Active LISINOPRIL 5 MG TABS 1 by mouth every day LISIN OPRIL 44935325675 No Longer Active Nguyen Perez Active KLOR-CON 20 MEQ PACK Take one by mouth daily 8 POTASSIUM CHLORIDE 28729419467 No Longer Active Nguyen Perez Active FUROSEMIDE 40 MG TABS 1 by mouth daily FUROSEMI DE 09138901653 No Longer Active Nguyen Perez Active PROVIGIL 200 MG TABS 1/2 tab po q day MODAFINIL 81459 524384 Active Curly Coker MD Active PROVIGIL 100 MG TABS Take one by mouth daily MO DAFINIL 84706578802 No Longer Active Mitch Urbina DO Active BACTRIM DS 800-160 MG TAB 1 tab by mouth twice daily 2 TRIMETHOPRIM-SULFAMETHOXAZOLE 40214629573 No Longer Active Renan Hays MD Active FAMOTIDINE 20 MG TABS by mouth twice a day FAMOTI DINE 28118896511 Active Mitch Urbina DO Active ADULT ASPIRIN LOW STRENGTH 81 MG TBDP 1 by mouth every daily ASPIRIN 40859569535 Active Mitch Urbina DO Active METOPROLOL TARTRATE 50 MG TABS 1 by mouth twice daily METOPROLOL TARTRATE 89326274642 Active Domi Rivera MA Active BACTRIM DS 800-160 MG TAB 1 tab by mouth twice daily 2 BACTRIM DS 800-160 MG TAB 627154 TRIMETHOPRIM-SULFAMETHOXAZOLE Inac tive PROVIGIL 100 MG TABS Take one by mouth daily 4 PROVIGIL 100 MG TABS 387027 MODAFINIL Inactive FUROSEMIDE 40 MG TABS 1 by mouth daily FU ROSEMIDE 40 MG TABS 822876 FUROSEMIDE Inactive KLOR-CON 20 MEQ PACK Take one by mouth daily 8 KLOR-CON 20 MEQ PACK 704467 POTASSIUM CHLORIDE Inactive LISINOPRIL 5 MG TABS 1 by mouth every day LISINOPRIL 5 MG TABS 842087 LISINOPRIL Inactive COLCRYS 0.6 MG TABS 1 po q 6 hours prn gout pain 03/02 COLCRYS 0.6 MG TABS 479755 COLCHICINE Inactive JANUVIA 100 MG TABS 1/2 by mouth every day JANUVI A 100 MG TABS SITAGLIPTIN PHOSPHATE Inactive SIMVASTATIN 20 MG TABS 1 tab daily at bedtime SIMVASTATIN 20 MG TABS 419765 SIMVASTATIN Inactive COUMADIN 6 MG TABS 1 by mouth every other day COUMADIN 6 MG TABS 126345 WARFARIN SODIUM Inactive COUMADIN 5 MG TABS 1 by mouth every other day COUMADIN 5 MG TABS 159144 WARFARIN SODIUM Inactive LISINOPRIL 20 MG TABS 1 tab po at HS [place]OKI NOPRIL 20 MG TABS 114608 LISINOPRIL Inactive LISINOPRIL-HYDROCHLOROTHIAZIDE 20-12.5 MG TABS 1 tab by mouth da [place] LISINOPRIL-HYDROCHLOROTHIAZIDE 20-12.5 MG TABS 793701 LISINOPRIL-HYDROCHLOROTHIAZIDE Inactive POLYTRIM 52519-3.1 UNIT/ML-% SOLN 1 drop in affected e ye every 3 hours while awake x 7 days POLYTRIM 42374-7.1 UNIT/ML-% SOLN 17843 7 POLYMYXIN B-TRIMETHOPRIM Inactive COUMADIN 4 MG TABS 1 tablet daily COUMADIN 4 MG TABS 534983 WARFARIN SODIUM Inactive CLONIDINE HCL 0.1 MG TABS 1 po bid 7 days, then 1/2 tab po b id 7 days CLONIDINE HCL 0.1 MG TABS 051687 CLONIDINE HCL I nactive ALLOPURINOL 300 MG TABS Take 1 tablet by mouth daily 2 ALLOPURINOL 300 MG TABS 580820 ALLOPURINOL Inactive MECLIZINE HCL 25 MG TAB 1 po tid 3 days, then 1/2 tab tid 3 days MECLIZINE HCL 25 MG TAB 315386 MECLIZINE HCL Inactive LOVENOX 100 MG/ML SC SOLN One injection twice a day 20 09/15/15 LOVENOX 100 MG/ML SC SOLN 938115 ENOXAPARIN SODIUM Inactive Vital Signs Date Name [...] - Chem istry sodium, serum 136 mmol/L 798-967 4497/01/14 carbon dioxide, venous blood 25.4 mmol/L 21.0-32 [...] 1.0-3.5 Encounters Code Encounter Date Provider Facility CPT-35156 Level 3 Est. Patient 09:34:30 [employer] Mitch luis [facility] CPT-20313 Level 3 Est. Patient 09:37:15 CDT Mitch luis [facility] CPT-06820 Level 3 Est. Patient 17:01:00 [employer] Mitch luis [facility] CPT-85332 Level 3 Est. Patient 13:53:19 [employer] Mitch luis [facility] CPT-51640 Level 3 Est. Patient 19:19:37 [employer] Mitch luis [facility] CPT-03820 Level 3 Est. Patient 13:25:53 [employer] Tavo toure MD [facility] CPT-42425 Level 3 Est. Patient 18:17:28 CDT Mitch luis [facility] CPT-32737 Level 3 Est. Patient 15:22:57 CDT Mitch luis [facility] CPT-86354 Level 3 Est. Patient 18:21:50 CDT Mitch luis [facility] CPT-94535 Level 3 Est. Patient 18:20:38 CDT Mitch luis [facility] CPT-30621 Level 3 Est. Patient 15:37:55 CDT Mitch Arnol luis [facility] CPT-04885 Level 2 Est. Patient 15:54:44 CDT Carmine benton MD [facility]-39598 Level 3 Est. Patient 21:46:01 [employer] Mitch luis [facility] CPT-89493 Level 3 Est. Patient 22:15:50 CDT Mitch luis [facility] CPT-16621 Level 3 Est. Patient 10:48:15 CDT Mitch Arnol L janelle [facility] CPT-69583 Level 3 Est. Patient 23:20:57 CDT Tavo toure MD [facility] CPT-91592 Level 3 Est. Patient 16:26:13 CDT Mitch Castellano janelle [facility] Procedures Code Procedure Name Date Entry Date Standard Desc ription CPT-04726 Venipuncture Draw Fee 08:27:08 CDT CPT-07861 Liver Profile - LAB USE ONLY 08:27:07 CDT 2 CPT-07010 Microalbumin - LAB USE ONLY 08:27:07 CDT 20 25/05/09 CPT-39469 PT/INR - LAB USE ONLY 08:27:07 CDT CPT-73041 HGBA1C - LAB USE ONLY 08:27:07 CDT CPT-11331 CBC - LAB USE ONLY 08:27:07 CDT CPT-93186 Venipuncture Draw Fee 11:09:14 CDT CPT-24503 Venipuncture Draw Fee 08:32:21 [employer] CPT-05072 Venipuncture Draw Fee 09:38:56 [employer] CPT-75171 No Charge Offi Visit 21:36:07 CDT 1 CPT-96327 Venipuncture Draw Fee 10:13:28 [employer] CPT-78987 Venipuncture Draw Fee 08:31:11 CDT CPT-05243 Aspir/Inject Med Joint 18:17:28 CDT CPT-96965 Venipuncture Draw Fee 10:13:30 CDT CPT-83551 Venipuncture Draw Fee 08:31:43 [employer] CPT-JTINJ Joint Injection 18:34:50 CDT CPT-76712 Knee 3V 12:25:09 CDT CPT-11830 Venipuncture Draw Fee 12:15:57 CDT CPT-060 Medical Surveillance Exam 21:31:43 CDT 2011 CPT-10076 Venipuncture Draw Fee 08:32:05 [employer] CPT-OV Office Visit 18:19:06 CDT
--- OUTSIDE RECORDS SUMMARY | 2020-01-18 13:15 | XMS REPORT | Clinical Summary ---
Author Author Admin, Mitch Leon Organization [facility] [employer] Address Unknown Phone Unavailable Allergies, Adverse Reactions, [...] Coronary atherosclerosis of unspecified type of vessel, [place] or graft EDEMA 782.3 Resolved Mitch Urbina [...] ORAL TABLET 1 po BID GLIMEPIRID E 05672386811 Active Renee Oconnor LPN Active KEFLEX 500 MG ORAL CAPSULE 1 po qid CEPHALEXI N 47795903741 No Longer Active Mitch Urbina DO Active LOSARTAN POTASSIUM 100 MG ORAL TABLET 1 pill by mouth daily, for blood pressure LOSARTAN POTASSIUM 27778772221 Active Ana Wallace Active AMLODIPINE BESYLATE 5 MG ORAL TABLET 1 tablet by mouth daily 201 01/20/04 AMLODIPINE BESYLATE 08471426150 No Longer Active Joe fulton APRN Active MITIGARE 0.6 MG ORAL CAPSULE 2 capsules at onset of go ut pain, then take one capsule at 1 hour if symptoms persist. COLCHICINE 59 256176717 Active Mitch Urbina DO Active COUMADIN 1 MG ORAL TABLET 2 tabs orally daily with the 5mg tab to equal 7mg daily WARFARIN SODIUM 19947856534 Active Ana Wallace Active COLCRYS 0.6 MG ORAL TABLET 1 tab qid prn gout C OLCHICINE 05471339238 Active Norma Cazares Active INVOKANA 100 MG ORAL TABLET 1 tablet orally daily CANAGLIFLOZIN 32603898411 Active Mitch Urbina DO Active MINOXIDIL 2.5 MG ORAL TABLET 1 tablet daily for high blood press ure MINOXIDIL 52407926122 Active Mitch Urbina DO Active MECLIZINE HCL 25 MG ORAL TABLET 1 po tid 3 days, then 1/2 ta b tid 3 days MECLIZINE HCL 35648278930 No Longer Active Corey SEGURA Active ALLOPURINOL 300 MG ORAL TABLET Take 1 tablet by mouth daily 2012 ALLOPURINOL 48707938533 No Longer Active Corey SEGURA Active CLONIDINE HCL 0.1 MG ORAL TABLET 1 po bid 7 days, then 1/2 t ab po bid 7 days CLONIDINE HCL 76122252292 No Longer Active Corey SEGURA Active COUMADIN 5 MG ORAL TABLET 1 tab PO daily WARFAR IN SODIUM 32199989984 Active Mitch Urbina DO Active COUMADIN 4 MG ORAL TABLET 1 tablet daily WARFAR IN SODIUM 58300105458 No Longer Active Corey SEGURA Active POLYTRIM 46680-8.1 UNIT/ML-% OPHTHALMIC SOLUTION 1 rui p in affected eye every 3 hours while awake x 7 days POLYMYXIN B-TRIMETHOP RIM 91748246166 No Longer Active Corey SEGURA Active LOSARTAN POTASSIUM-HCTZ 100-12.5 MG ORAL TABLET 1 by m outh daily for high blood pressure LOSARTAN POTASSIUM-HCTZ 96649055842 No Longer A ctive Mitch Urbina DO Active LISINOPRIL-HYDROCHLOROTHIAZIDE 20-12.5 MG ORAL TABLET 1 tab by m outh daily LISINOPRIL-HYDROCHLOROTHIAZIDE 14632720153 No Longer Active Mitch Urbina DO Active LISINOPRIL 20 MG ORAL TABLET 1 tab po at HS LIS INOPRIL 72042465076 No Longer Active Mitch Urbina DO Active COUMADIN 5 MG ORAL TABLET 1 by mouth every other day 2 WARFARIN SODIUM 56679549154 No Longer Active Mitch Urbina DO Active COUMADIN 6 MG ORAL TABLET 1 by mouth every other day 2 WARFARIN SODIUM 02304952273 No Longer Active Mitch Urbina DO Active SIMVASTATIN 40 MG ORAL TABLET 1 tab daily at bedtime SIMVASTATIN 34876123478 Active Mitch Urbina DO Active SIMVASTATIN 20 MG ORAL TABLET 1 tab daily at bedtime 2 SIMVASTATIN 00279296160 No Longer Active Mitch Urbina DO Active LOVENOX 100 MG/ML SUBCUTANEOUS SOLUTION One injection twice a da y ENOXAPARIN SODIUM 10413896116 No Longer Active Carmine Yusuf MD Active JANUVIA 50 MG ORAL TABLET Take one by mouth daily SITAGLIPTIN PHOSPHATE 90492815088 Active Mitch Urbina DO Active JANUVIA 100 MG ORAL TABLET 1/2 by mouth every day 2011 SITAGLIPTIN PHOSPHATE 22592951750 No Longer Active Bijal Segal RN Acti ve METFORMIN HCL 500 MG ORAL TABLET 2 by mouth twice daily METFORMIN HCL 54352303793 Active Mitch Urbina DO Active COLCRYS 0.6 MG ORAL TABLET 1 po q 6 hours prn gout pain COLCHICINE 65036780901 No Longer Active Camila Reese Active LISINOPRIL 5 MG ORAL TABLET 1 by mouth every day 11/17 LISINOPRIL 67178551391 No Longer Active Nguyen Perez Active KLOR-CON 20 MEQ ORAL PACKET Take one by mouth daily 09/10/08 POTASSIUM CHLORIDE 00200691320 No Longer Active Nguyen Perez Active FUROSEMIDE 40 MG ORAL TABLET 1 by mouth daily F UROSEMIDE 01444329228 No Longer Active Nguyen Perez Active PROVIGIL 200 MG ORAL TABLET 1/2 tab po q day MODA FINIL 67140181443 Active Ana Wallace Active PROVIGIL 100 MG ORAL TABLET Take one by mouth daily 08/20/04 MODAFINIL 84886993029 No Longer Active Mitch Urbina DO Active BACTRIM DS 800-160 MG ORAL TABLET 1 tab by mouth twice daily 201 10/19/09 TRIMETHOPRIM-SULFAMETHOXAZOLE 06784671817 No Longer Active Elian Hays MD Active FAMOTIDINE 20 MG ORAL TABLET by mouth twice a day FAMOTIDINE 42057828452 Active Mitch Urbina DO Active ADULT ASPIRIN LOW STRENGTH 81 MG ORAL TABLET DISINTEGR ATING 1 by mouth every daily ASPIRIN 93979417158 Active Mitch Urbina DO Ac tive METOPROLOL TARTRATE 50 MG ORAL TABLET 1 by mouth twice daily METOPROLOL TARTRATE 43297814358 Active Mitch Urbina DO Active BACTRIM DS 800-160 MG ORAL TABLET 1 tab by mouth twice daily 201 10/19/09 BACTRIM DS 800-160 MG ORAL TABLET 081338 TRIMETHOPRIM-SULFAMETHOXAZOLE Inactive PROVIGIL 100 MG ORAL TABLET Take one by mouth daily 08/20/04 PROVIGIL 100 MG ORAL TABLET 849000 MODAFINIL Inactive FUROSEMIDE 40 MG ORAL TABLET 1 by mouth daily FUROSEMIDE 40 MG ORAL TABLET 589156 FUROSEMIDE Inactive KLOR-CON 20 MEQ ORAL PACKET Take one by mouth daily 09/10/08 KLOR- CON 20 MEQ ORAL PACKET 7181906 POTASSIUM CHLORIDE Inactive LISINOPRIL 5 MG ORAL TABLET 1 by mouth every day 11/17 LISINOPRIL 5 MG ORAL TABLET 526104 LISINOPRIL Inactive COLCRYS 0.6 MG ORAL TABLET 1 po q 6 hours prn gout pain COLCRYS 0.6 MG ORAL TABLET 478936 COLCHICINE Inactive JANUVIA 100 MG ORAL TABLET 1/2 by mouth every day 2011 JANUVIA 100 MG ORAL TABLET SITAGLIPTIN PHOSPHATE Inactive SIMVASTATIN 20 MG ORAL TABLET 1 tab daily at bedtime 2 SIMVASTATIN 20 MG ORAL TABLET 559230 SIMVASTATIN Inactive COUMADIN 6 MG ORAL TABLET 1 by mouth every other day 2 COUMADIN 6 MG ORAL TABLET 777943 WARFARIN SODIUM Inactive COUMADIN 5 MG ORAL TABLET 1 by mouth every other day 2 COUMADIN 5 MG ORAL TABLET 069580 WARFARIN SODIUM Inactive LISINOPRIL 20 MG ORAL TABLET 1 tab po at HS LISINOPRIL 20 MG ORAL TABLET 046631 LISINOPRIL Inactive LISINOPRIL-HYDROCHLOROTHIAZIDE 20-12.5 MG ORAL TABLET 1 tab by m outh daily LISINOPRIL-HYDROCHLOROTHIAZIDE 20-12.5 MG ORAL TABLET 592500 LISINOPRIL-HYDROCHLOROTHIAZIDE Inactive POLYTRIM 20203-5.1 UNIT/ML-% OPHTHALMIC SOLUTION 1 rui p in affected eye every 3 hours while awake x 7 days POLYTRIM 1000 0-0.1 UNIT/ML-% OPHTHALMIC SOLUTION 225991 POLYMYXIN B-TRIMETHOPRIM Inactive COUMADIN 4 MG ORAL TABLET 1 tablet daily COUMADIN 4 MG ORAL TABLET 595467 WARFARIN SODIUM Inactive CLONIDINE HCL 0.1 MG ORAL TABLET 1 po bid 7 days, then 1/2 t ab po bid 7 days CLONIDINE HCL 0.1 MG ORAL TABLET 653799 CLONIDIN E HCL Inactive ALLOPURINOL 300 MG ORAL TABLET Take 1 tablet by mouth daily 2012 ALLOPURINOL 300 MG ORAL TABLET 007332 ALLOPURINOL I nactive MECLIZINE HCL 25 MG ORAL TABLET 1 po tid 3 days, then 1/2 ta b tid 3 days MECLIZINE HCL 25 MG ORAL TABLET 977259 MECLIZINE HCL Inactive AMLODIPINE BESYLATE 5 MG ORAL TABLET 1 tablet by mouth daily 201 01/20/04 AMLODIPINE BESYLATE 5 MG ORAL TABLET 005756 AMLODIPINE BESYLATE Inactive KEFLEX 500 MG ORAL CAPSULE 1 po qid K EFLEX 500 MG ORAL CAPSULE 381455 CEPHALEXIN Inactive LOVENOX 100 MG/ML SUBCUTANEOUS SOLUTION One injection twice a da y LOVENOX 100 MG/ML SUBCUTANEOUS SOLUTION 754784 ENOXAPAR IN SODIUM Inactive Vital Signs Date [...] - Chem istry sodium, serum 139 mmol/L 158-761 2436/07/17 potassium, serum 4.2 mmol/L 3.5-5.2 chloride, serum 102 mmol/L 98-107 carbon dioxide, venous blood 28.9 mmol/L 21.0-32 .0 blood glucose 211 mg/dL 65-110 calcium, serum 10.6 mg/dL 8.5-10.1 urea nitrogen, blood 29 mg/dL 7-18 creatinine, serum 1.24 mg/dL 0.60-1.30 sodium, serum 141 mmol/L 278-621 1376/08/07 potassium, serum 4.5 mmol/L 3.5-5.2 chloride, serum [...] ... - Chemistry sodium, serum 144 mmol/L 051-172 7858/06/12 carbon dioxide, venous blood 26.6 mmol/L 21.0-32 [...] HGBA1C - Chemistry cholesterol, serum 136 mg/dL 306-448 9934/12/06 triglyceride, serum, fasting 247 mg/dL 30-200 HDL cholesterol, serum 41 mg/dL 32-60 LDL cholesterol, serum 46 mg/dL 0-130 aspartate aminotransferase (SGOT), serum 22 U/L 15-37 alanine aminotransferase (SGPT), serum 30 U/L 12-78 bilirubin, serum, total 0.80 mg/dL 0.00-1.00 hemoglobin A1C, blood, as % of total hemoglobin 6.4 % 4.3-6.0 Encounters Code Encounter Date Provider Facility CPT-42107 Level 3 Est. Patient 18:25:53 CDT Mitch luis [facility] CPT-21110 Level 3 Est. Patient 19:43:34 CDT Mitch luis [facility] CPT-74806 Level 4 Est. Patient 09:30:18 CDT Mitch luis [facility] CPT-96790 Level 3 Est. Patient 15:10:14 CDT Joe kamara [facility] CPT-20940 Level 3 Est. Patient 15:03:46 CDT Joe kamara [facility] CPT-25323 Level 3 Est. Patient 14:21:06 CDT Mitch Arnol Nona luis [facility] CPT-05606 Level 3 Est. Patient 14:52:06 CDT Joe kamara [facility] CPT-35112 Level 3 Est. Patient 09:34:30 AUTHOR Mitch Arnol Nona luis [facility] CPT-31757 Level 3 Est. Patient 09:37:15 CDT Mitch luis [facility] CPT-77265 Level 3 Est. Patient 17:01:00 AUTHOR Mitch luis [facility] CPT-57743 Level 3 Est. Patient 13:53:19 AUTHOR Mitch luis [facility] CPT-25607 Level 3 Est. Patient 19:19:37 AUTHOR Mitch luis [facility] CPT-85943 Level 3 Est. Patient 13:25:53 AUTHOR Tavo toure MD [facility] CPT-42227 Level 3 Est. Patient 18:17:28 CDT Mitch luis [facility] CPT-54442 Level 3 Est. Patient 15:22:57 CDT Mitch luis [facility] CPT-05980 Level 3 Est. Patient 18:21:50 CDT Mitch W L janelle [facility] CPT-16632 Level 3 Est. Patient 18:20:38 CDT Mitch W L janelle [facility] CPT-56539 Level 3 Est. Patient 15:37:55 CDT Mitch luis [facility] CPT-41845 Level 2 Est. Patient 15:54:44 CDT Carmine benton MD [facility] CPT-35151 Level 3 Est. Patient 21:46:01 AUTHOR Mitch luis [facility] CPT-13453 Level 3 Est. Patient 22:15:50 CDT Mitch luis [facility] CPT-25049 Level 3 Est. Patient 10:48:15 CDT Mitch luis [facility] CPT-86309 Level 3 Est. Patient 23:20:57 CDT Tavo toure MD [facility] CPT-24103 Level 3 Est. Patient 16:26:13 CDT Mitch Castellano janelle [facility] Procedures Code Procedure Name Date Entry Date Standard Desc ription CPT-73730 Venipuncture Draw Fee 09:26:17 CDT CPT-63930 PT/INR - LAB USE ONLY 13:32:49 AUTHOR CPT-15395 Venipuncture Draw Fee 13:32:49 AUTHOR CPT-19562 PT/INR - LAB USE ONLY 10:34:49 AUTHOR CPT-18923 Venipuncture Draw Fee 10:34:48 AUTHOR CPT-08490 PT/INR - LAB USE ONLY 09:22:03 AUTHOR CPT-96124 Venipuncture Draw Fee 09:22:02 AUTHOR CPT-50513 Hemoccult IFOBT - LAB USE ONLY 10:27:22 CDT CPT-91494 Venipuncture Draw Fee 08:27:08 CDT CPT-07217 Liver Profile - LAB USE ONLY 08:27:07 CDT 2 CPT-81002 Microalbumin - LAB USE ONLY 08:27:07 CDT 20 25/05/09 CPT-16933 PT/INR - LAB USE ONLY 08:27:07 CDT CPT-75878 HGBA1C - LAB USE ONLY 08:27:07 CDT CPT-78505 CBC - LAB USE ONLY 08:27:07 CDT CPT-46416 Venipuncture Draw Fee 11:09:14 CDT CPT-10970 Venipuncture Draw Fee 08:32:21 AUTHOR CPT-39964 Venipuncture Draw Fee 09:38:56 AUTHOR CPT-34783 No Charge Offi Visit 21:36:07 CDT 1 CPT-43247 Venipuncture Draw Fee 10:13:28 AUTHOR CPT-38672 Venipuncture Draw Fee 08:31:11 CDT CPT-87336 Aspir/Inject Med Joint 18:17:28 CDT CPT-12944 Venipuncture Draw Fee 10:13:30 CDT CPT-36740 Venipuncture Draw Fee 08:31:43 AUTHOR CPT-JTINJ Joint Injection 18:34:50 CDT CPT-87474 Knee 3V 12:25:09 CDT CPT-23157 Venipuncture Draw Fee 12:15:57 CDT CPT-060 Medical Surveillance Exam 21:31:43 CDT 2011 CPT-95477 Venipuncture Draw Fee 08:32:05 AUTHOR CPT-OV Office Visit 18:19:06 CDT
--- OUTSIDE RECORDS SUMMARY | 2020-01-18 13:16 | XMS REPORT | Clinical Summary ---
Author Author Admin, Mitch Leon Organization [facility] Address Unknown Phone Unavailable Allergies, Adverse Reactions, [...] s HEALTH MAINTENANCE EXAM V70.0 Active Mitch Mreaz DO Routine general medical examination at a health care facility CORONARY HEART DISEASE 414.00 Active Mitch Urbina DO Coronary atherosclerosis of unspecified type of vessel, tunica-biloxi or graft EDEMA 782.3 Resolved Mitch Urbina [...] DO Olecranon bursitis UNSPECIFIED ANEMIA 285.9 Resolved Imtch W Carlitos DO Anemia, unspecified Malaise and [...] ORAL TABLET 1 po BID GLIMEPIRID E 99411709713 Active Renee Oconnor LPN Active KEFLEX 500 MG ORAL CAPSULE 1 po qid CEPHALEXI N 35608531722 No Longer Active Mitch Urbina DO Active LOSARTAN POTASSIUM 100 MG ORAL TABLET 1 pill by mouth daily, for blood pressure LOSARTAN POTASSIUM 45127817993 Active Ana Wallace Active AMLODIPINE BESYLATE 5 MG ORAL TABLET 1 tablet by mouth daily 201 01/20/04 AMLODIPINE BESYLATE 79787826748 No Longer Active Joe fulton APRN Active MITIGARE 0.6 MG ORAL CAPSULE 2 capsules at onset of go ut pain, then take one capsule at 1 hour if symptoms persist. COLCHICINE 59 719132998 Active Mitch Urbina DO Active COUMADIN 1 MG ORAL TABLET 2 tabs orally daily with the 5mg tab to equal 7mg daily WARFARIN SODIUM 97062856384 Active Ana Wallace Active COLCRYS 0.6 MG ORAL TABLET 1 tab qid prn gout C OLCHICINE 49704629147 Active Norma Cazares Active INVOKANA 100 MG ORAL TABLET 1 tablet orally daily CANAGLIFLOZIN 55805199127 Active Mitch Urbina DO Active MINOXIDIL 2.5 MG ORAL TABLET 1 tablet daily for high blood press ure MINOXIDIL 98412044702 Active Mitch Urbina DO Active MECLIZINE HCL 25 MG ORAL TABLET 1 po tid 3 days, then 1/2 ta b tid 3 days MECLIZINE HCL 61132032857 No Longer Active Corey SEGURA Active ALLOPURINOL 300 MG ORAL TABLET Take 1 tablet by mouth daily 2012 ALLOPURINOL 57701390896 No Longer Active Corey SEGURA Active CLONIDINE HCL 0.1 MG ORAL TABLET 1 po bid 7 days, then 1/2 t ab po bid 7 days CLONIDINE HCL 38051559161 No Longer Active Corey SEGURA Active COUMADIN 5 MG ORAL TABLET 1 tab PO daily WARFAR IN SODIUM 63474045762 Active Mitch Urbina DO Active COUMADIN 4 MG ORAL TABLET 1 tablet daily WARFAR IN SODIUM 51126002872 No Longer Active Corey SEGURA Active POLYTRIM 30698-8.1 UNIT/ML-% OPHTHALMIC SOLUTION 1 rui p in affected eye every 3 hours while awake x 7 days POLYMYXIN B-TRIMETHOP RIM 10673489306 No Longer Active Corey SEGURA Active LOSARTAN POTASSIUM-HCTZ 100-12.5 MG ORAL TABLET 1 by m outh daily for high blood pressure LOSARTAN POTASSIUM-HCTZ 15584102265 No Longer A ctive Mitch Urbina DO Active LISINOPRIL-HYDROCHLOROTHIAZIDE 20-12.5 MG ORAL TABLET 1 tab by m outh daily LISINOPRIL-HYDROCHLOROTHIAZIDE 43472314575 No Longer Active Mitch Urbina DO Active LISINOPRIL 20 MG ORAL TABLET 1 tab po at HS LIS INOPRIL 57283539828 No Longer Active Mitch Urbina DO Active COUMADIN 5 MG ORAL TABLET 1 by mouth every other day 2 WARFARIN SODIUM 57468066287 No Longer Active Mitch Urbina DO Active COUMADIN 6 MG ORAL TABLET 1 by mouth every other day 2 WARFARIN SODIUM 18869532786 No Longer Active Mitch Urbina DO Active SIMVASTATIN 40 MG ORAL TABLET 1 tab daily at bedtime SIMVASTATIN 89225855917 Active Mitch Urbina DO Active SIMVASTATIN 20 MG ORAL TABLET 1 tab daily at bedtime 2 SIMVASTATIN 74927725286 No Longer Active Mitch Urbina DO Active LOVENOX 100 MG/ML SUBCUTANEOUS SOLUTION One injection twice a da y ENOXAPARIN SODIUM 82558579452 No Longer Active Carmine Yusuf MD Active JANUVIA 50 MG ORAL TABLET Take one by mouth daily SITAGLIPTIN PHOSPHATE 24124701829 Active Mitch Urbina DO Active JANUVIA 100 MG ORAL TABLET 1/2 by mouth every day 2011 SITAGLIPTIN PHOSPHATE 08581156899 No Longer Active Bijal Segal RN Acti ve METFORMIN HCL 500 MG ORAL TABLET 2 by mouth twice daily METFORMIN HCL 09284857598 Active Mitch Urbina DO Active COLCRYS 0.6 MG ORAL TABLET 1 po q 6 hours prn gout pain COLCHICINE 29084272435 No Longer Active Camila Reese Active LISINOPRIL 5 MG ORAL TABLET 1 by mouth every day 11/17 LISINOPRIL 62836243569 No Longer Active Nguyen Perez Active KLOR-CON 20 MEQ ORAL PACKET Take one by mouth daily 09/10/08 POTASSIUM CHLORIDE 32603696173 No Longer Active Nguyen Coekman Active FUROSEMIDE 40 MG ORAL TABLET 1 by mouth daily F UROSEMIDE 99273727493 No Longer Active Nguyen Perez Active PROVIGIL 200 MG ORAL TABLET 1/2 tab po q day MODA FINIL 25113707687 Active Mitch Urbina DO Active PROVIGIL 100 MG ORAL TABLET Take one by mouth daily 08/20/04 MODAFINIL 28303979115 No Longer Active Mitch Urbina DO Active BACTRIM DS 800-160 MG ORAL TABLET 1 tab by mouth twice daily 201 10/19/09 TRIMETHOPRIM-SULFAMETHOXAZOLE 86895174743 No Longer Active Elian Hays MD Active FAMOTIDINE 20 MG ORAL TABLET by mouth twice a day FAMOTIDINE 89576991832 Active Mitch Urbina DO Active ADULT ASPIRIN LOW STRENGTH 81 MG ORAL TABLET DISINTEGR ATING 1 by mouth every daily ASPIRIN 68863036128 Active Mitch Urbina DO Ac tive METOPROLOL TARTRATE 50 MG ORAL TABLET 1 by mouth twice daily METOPROLOL TARTRATE 59731963166 Active Mitch Urbina DO Active BACTRIM DS 800-160 MG ORAL TABLET 1 tab by mouth twice daily 201 10/19/09 BACTRIM DS 800-160 MG ORAL TABLET 576650 TRIMETHOPRIM-SULFAMETHOXAZOLE Inactive PROVIGIL 100 MG ORAL TABLET Take one by mouth daily 08/20/04 PROVIGIL 100 MG ORAL TABLET 706222 MODAFINIL Inactive FUROSEMIDE 40 MG ORAL TABLET 1 by mouth daily FUROSEMIDE 40 MG ORAL TABLET 260592 FUROSEMIDE Inactive KLOR-CON 20 MEQ ORAL PACKET Take one by mouth daily 09/10/08 KLOR- CON 20 MEQ ORAL PACKET 2342004 POTASSIUM CHLORIDE Inactive LISINOPRIL 5 MG ORAL TABLET 1 by mouth every day 11/17 LISINOPRIL 5 MG ORAL TABLET 455847 LISINOPRIL Inactive COLCRYS 0.6 MG ORAL TABLET 1 po q 6 hours prn gout pain COLCRYS 0.6 MG ORAL TABLET 564494 COLCHICINE Inactive JANUVIA 100 MG ORAL TABLET 1/2 by mouth every day 2011 JANUVIA 100 MG ORAL TABLET SITAGLIPTIN PHOSPHATE Inactive SIMVASTATIN 20 MG ORAL TABLET 1 tab daily at bedtime 2 SIMVASTATIN 20 MG ORAL TABLET 356321 SIMVASTATIN Inactive COUMADIN 6 MG ORAL TABLET 1 by mouth every other day 2 COUMADIN 6 MG ORAL TABLET 938854 WARFARIN SODIUM Inactive COUMADIN 5 MG ORAL TABLET 1 by mouth every other day 2 COUMADIN 5 MG ORAL TABLET 746571 WARFARIN SODIUM Inactive LISINOPRIL 20 MG ORAL TABLET 1 tab po at HS LISINOPRIL 20 MG ORAL TABLET 130828 LISINOPRIL Inactive LISINOPRIL-HYDROCHLOROTHIAZIDE 20-12.5 MG ORAL TABLET 1 tab by m outh daily LISINOPRIL-HYDROCHLOROTHIAZIDE 20-12.5 MG ORAL TABLET 264300 LISINOPRIL-HYDROCHLOROTHIAZIDE Inactive POLYTRIM 46703-7.1 UNIT/ML-% OPHTHALMIC SOLUTION 1 rui p in affected eye every 3 hours while awake x 7 days POLYTRIM 1000 0-0.1 UNIT/ML-% OPHTHALMIC SOLUTION 768840 POLYMYXIN B-TRIMETHOPRIM Inactive COUMADIN 4 MG ORAL TABLET 1 tablet daily COUMADIN 4 MG ORAL TABLET 831627 WARFARIN SODIUM Inactive CLONIDINE HCL 0.1 MG ORAL TABLET 1 po bid 7 days, then 1/2 t ab po bid 7 days CLONIDINE HCL 0.1 MG ORAL TABLET 682253 CLONIDIN E HCL Inactive ALLOPURINOL 300 MG ORAL TABLET Take 1 tablet by mouth daily 2012 ALLOPURINOL 300 MG ORAL TABLET 583556 ALLOPURINOL I nactive MECLIZINE HCL 25 MG ORAL TABLET 1 po tid 3 days, then 1/2 ta b tid 3 days MECLIZINE HCL 25 MG ORAL TABLET 829125 MECLIZINE HCL Inactive AMLODIPINE BESYLATE 5 MG ORAL TABLET 1 tablet by mouth daily 201 01/20/04 AMLODIPINE BESYLATE 5 MG ORAL TABLET 885501 AMLODIPINE BESYLATE Inactive KEFLEX 500 MG ORAL CAPSULE 1 po qid K EFLEX 500 MG ORAL CAPSULE 308536 CEPHALEXIN Inactive LOVENOX 100 MG/ML SUBCUTANEOUS SOLUTION One injection twice a da y LOVENOX 100 MG/ML SUBCUTANEOUS SOLUTION 889268 ENOXAPAR IN SODIUM Inactive Vital Signs Date [...] - Chem istry sodium, serum 139 mmol/L 771-349 8522/07/17 urea nitrogen, blood 29 mg/dL 7-18 creatinine, serum 1.24 mg/dL 0.60-1.30 potassium, serum 4.2 mmol/L 3.5-5.2 chloride, serum 102 mmol/L 98-107 carbon dioxide, venous blood 28.9 mmol/L 21.0-32 .0 blood glucose 211 mg/dL 65-110 calcium, serum 10.6 mg/dL 8.5-10.1 sodium, serum 141 mmol/L 450-547 7229/08/07 urea nitrogen, blood 26 mg/dL 7-18 creatinine, [...] leukocyte count, blood 8.7 10^3/MM^3 10*3/mm3 4.6-10.2 hematocrit, blood 43.9 % 40.0-54.0 mean corpuscular [...] ... - Chemistry sodium, serum 144 mmol/L 492-743 0967/06/12 creatinine, serum 1.32 mg/dL 0.55-1.30 alanine aminotransferase [...] HGBA1C - Chemistry cholesterol, serum 136 mg/dL 471-146 9476/12/06 triglyceride, serum, fasting 247 mg/dL 30-200 HDL [...] 11.1-13.4 Encounters Code Encounter Date Provider Facility CPT-57377 Level 3 Est. Patient 18:25:53 CDT Mitch luis [facility] CPT-40761 Level 3 Est. Patient 19:43:34 CDT Mitch luis [facility] CPT-73457 Level 4 Est. Patient 09:30:18 CDT Mitch luis [facility] CPT-07672 Level 3 Est. Patient 15:10:14 CDT Joe kamara [facility] CPT-73481 Level 3 Est. Patient 15:03:46 CDT Joe kamara [facility] CPT-04207 Level 3 Est. Patient 14:21:06 CDT Mitch luis [facility] CPT-60644 Level 3 Est. Patient 14:52:06 CDT Joe kamara [facility] CPT-53681 Level 3 Est. Patient 09:34:30 [employer] Mitch Castellano [facility] CPT-07127 Level 3 Est. Patient 09:37:15 CDT Mitch luis [facility] CPT-26759 Level 3 Est. 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 Patient 13:53:19 WO[employer] TILE INSTALLER Mitch W Nona luis [facility] CPT-93239 Level 3 Est. Patient 19:19:37 WO[employer] TILE INSTALLER Mitch W L janelle [facility] CPT-48830 Level 3 Est. Patient 13:25:53 WOOD TILE INSTALLER Tavo toure MD [facility] CPT-39035 Level 3 Est. Patient 18:17:28 CDT Mitch W L janelle [facility] CPT-66307 Level 3 Est. Patient 15:22:57 CDT Mitch W L janelle [facility] CPT-33554 Level 3 Est. Patient 18:21:50 CDT Mitch W L janelle [facility] CPT-29836 Level 3 Est. Patient 18:20:38 CDT Mitch W L janelle [facility] CPT-02336 Level 3 Est. Patient 15:37:55 CDT Mitch luis [facility] CPT-39674 Level 2 Est. Patient 15:54:44 CDT Carmine benton MD [facility]-56435 Level 3 Est. Patient 21:46:01 WO[employer] TILE INSTALLER Mitch luis [facility] CPT-87750 Level 3 Est. Patient 22:15:50 CDT Mitch luis [facility] CPT-59794 Level 3 Est. Patient 10:48:15 CDT Mitch W L janelle [facility] CPT-29505 Level 3 Est. Patient 23:20:57 CDT Tavo toure MD [facility]-87460 Level 3 Est. Patient 16:26:13 CDT Mitch Ambrose L janelle [facility] Procedures Code Procedure Name Date Entry Date Standard Desc ription CPT-34053 Venipuncture Draw Fee 09:26:17 CDT CPT-16545 PT/INR - LAB USE ONLY 13:32:49 [employer] CPT-04781 Venipuncture Draw Fee 13:32:49 [employer] TILE IN[employer]ER CPT-37547 PT/INR - LAB USE ONLY 10:34:49 [employer] TILE IN[employer]ER CPT-42027 Venipuncture Draw Fee 10:34:48 WO[employer] TILE INST[employer]ER CPT-86001 PT/INR - LAB USE ONLY 09:22:03 WO[employer] TILE INST[employer]ER CPT-13006 Venipuncture Draw Fee 09:22:02 WO[employer] TILE INST[employer]ER CPT-88040 Hemoccult IFOBT - LAB USE ONLY 10:27:22 CDT CPT-88091 Venipuncture Draw Fee 08:27:08 CDT CPT-56330 Liver Profile - LAB USE ONLY 08:27:07 CDT 2 CPT-22633 Microalbumin - LAB USE ONLY 08:27:07 CDT 20 25/05/09 CPT-26768 PT/INR - LAB USE ONLY 08:27:07 CDT CPT-48053 HGBA1C - LAB USE ONLY 08:27:07 CDT CPT-77040 CBC - LAB USE ONLY 08:27:07 CDT CPT-99448 Venipuncture Draw Fee 11:09:14 CDT CPT-62021 Venipuncture Draw Fee 08:32:21 [employer] TILE IN[employer] CPT-00197 Venipuncture Draw Fee 09:38:56 [employer] TILE IN[employer]ER CPT-57646 No Charge Offi Visit 21:36:07 CDT 1 CPT-43401 Venipuncture Draw Fee 10:13:28 [employer] TILE IN[employer]ER CPT-83490 Venipuncture Draw Fee 08:31:11 CDT CPT-00488 Aspir/Inject Med Joint 18:17:28 CDT CPT-08446 Venipuncture Draw Fee 10:13:30 CDT CPT-53803 Venipuncture Draw Fee 08:31:43 [employer] TILE INST[employer]ER CPT-JTINJ Joint Injection 18:34:50 CDT CPT-92249 Knee 3V 12:25:09 CDT CPT-66317 Venipuncture Draw Fee 12:15:57 CDT CPT-060 Medical Surveillance Exam 21:31:43 CDT 2011 CPT-28429 Venipuncture Draw Fee 08:32:05 [employer] TILE INSTALLER CPT-OV Office Visit 18:19:06 CDT
--- OUTSIDE RECORDS SUMMARY | 2020-01-18 13:16 | XMS REPORT | Clinical Summary ---
Author Author Admin, Mitch Leon Organization [facility] Address Unknown Phone Unavailable Allergies, Adverse Reactions, [...] Coronary atherosclerosis of unspecified type of vessel, [place] or graft EDEMA 782.3 Resolved Mitch Urbina [...] Edema CELLULITIS, GROIN, LEFT ICD-682.2 Inactive Zoya e Arnol Urbina DO SEROMA ICD-998.13 Inactive [...] by mouth twice a day 2017 FAMOTIDINE 03241286699 No Longer Active Mitch Urbina DO Active COLCRYS 0.6 MG ORAL TABLET 1 tab qid prn gout C OLCHICINE 92337368798 No Longer Active Mitch Urbina DO Active GLIMEPIRIDE 2 MG ORAL TABLET 1 po BID GLIMEPIRID E 83085193270 Active Renee Quirogamonserrat DE LA ROSA Active KEFLEX 500 MG ORAL CAPSULE 1 po qid CEPHALEXI N 12734418170 No Longer Active Mitch Urbina DO Active LOSARTAN POTASSIUM 100 MG ORAL TABLET 1 pill by mouth daily, for blood pressure LOSARTAN POTASSIUM 75955448473 Active Ana Wallace Active AMLODIPINE BESYLATE 5 MG ORAL TABLET 1 tablet by mouth daily 201 01/20/04 AMLODIPINE BESYLATE 81363655810 No Longer Active Joe fulton APRN Active MITIGARE 0.6 MG ORAL CAPSULE 2 capsules at onset of go ut pain, then take one capsule at 1 hour if symptoms persist. COLCHICINE 59 249732556 Active Mitch Urbina DO Active COUMADIN 1 MG ORAL TABLET 2 tabs orally daily with the 5mg tab to equal 7mg daily WARFARIN SODIUM 99857556753 Active Ana Wallace Active INVOKANA 100 MG ORAL TABLET 1 tablet orally daily CANAGLIFLOZIN 64634917387 Active Mitch Urbina DO Active MINOXIDIL 2.5 MG ORAL TABLET 1 tablet daily for high blood press ure MINOXIDIL 79189124722 Active Mitch Urbina DO Active MECLIZINE HCL 25 MG ORAL TABLET 1 po tid 3 days, then 1/2 ta b tid 3 days MECLIZINE HCL 81841570820 No Longer Active Corey SEGURA Active ALLOPURINOL 300 MG ORAL TABLET Take 1 tablet by mouth daily 2012 ALLOPURINOL 54262453033 No Longer Active Corey SEGURA Active CLONIDINE HCL 0.1 MG ORAL TABLET 1 po bid 7 days, then 1/2 t ab po bid 7 days CLONIDINE HCL 70136053533 No Longer Active Corey SEGURA Active COUMADIN 5 MG ORAL TABLET 1 tab PO daily WARFAR IN SODIUM 29906849948 Active Mitch Urbina DO Active COUMADIN 4 MG ORAL TABLET 1 tablet daily WARFAR IN SODIUM 88591040702 No Longer Active Corey SEGURA Active POLYTRIM 39550-9.1 UNIT/ML-% OPHTHALMIC SOLUTION 1 rui p in affected eye every 3 hours while awake x 7 days POLYMYXIN B-TRIMETHOP RIM 50588613768 No Longer Active Corey SEGURA Active LOSARTAN POTASSIUM-HCTZ 100-12.5 MG ORAL TABLET 1 by m outh daily for high blood pressure LOSARTAN POTASSIUM-HCTZ 50760884086 No Longer A ctive Mitch Urbina DO Active LISINOPRIL-HYDROCHLOROTHIAZIDE 20-12.5 MG ORAL TABLET 1 tab by m outh daily LISINOPRIL-HYDROCHLOROTHIAZIDE 26031491489 No Longer Active Mitch Urbina DO Active LISINOPRIL 20 MG ORAL TABLET 1 tab po at HS LIS INOPRIL 29694659275 No Longer Active Mitch Urbina DO Active COUMADIN 5 MG ORAL TABLET 1 by mouth every other day 2 WARFARIN SODIUM 24432521245 No Longer Active Mitch Urbina DO Active COUMADIN 6 MG ORAL TABLET 1 by mouth every other day 2 WARFARIN SODIUM 04927559747 No Longer Active Mitch Urbina DO Active SIMVASTATIN 40 MG ORAL TABLET 1 tab daily at bedtime SIMVASTATIN 64958473896 Active Mitch Urbina DO Active SIMVASTATIN 20 MG ORAL TABLET 1 tab daily at bedtime 2 SIMVASTATIN 25583288219 No Longer Active Mitch Urbina DO Active LOVENOX 100 MG/ML SUBCUTANEOUS SOLUTION One injection twice a da y ENOXAPARIN SODIUM 53971137135 No Longer Active Carmine Yusuf MD Active JANUVIA 50 MG ORAL TABLET Take one by mouth daily SITAGLIPTIN PHOSPHATE 32416171158 Active Mitch Urbina DO Active JANUVIA 100 MG ORAL TABLET 1/2 by mouth every day 2011 SITAGLIPTIN PHOSPHATE 15920720317 No Longer Active Bijal Segal RN Acti ve METFORMIN HCL 500 MG ORAL TABLET 2 by mouth twice daily METFORMIN HCL 11351589165 Active Mitch Urbina DO Active COLCRYS 0.6 MG ORAL TABLET 1 po q 6 hours prn gout pain COLCHICINE 84502695924 No Longer Active Camila Reese Active LISINOPRIL 5 MG ORAL TABLET 1 by mouth every day 11/17 LISINOPRIL 72810289016 No Longer Active Nguyen Ana Active KLOR-CON 20 MEQ ORAL PACKET Take one by mouth daily 20 09/10/08 POTASSIUM CHLORIDE 92251506441 No Longer Active Nguyen Perez Active FUROSEMIDE 40 MG ORAL TABLET 1 by mouth daily F UROSEMIDE 45266276294 No Longer Active Nguyen Perez Active PROVIGIL 200 MG ORAL TABLET 1/2 tab po q day MODA FINIL 16720886792 Active Renee Oconnor LPN Active PROVIGIL 100 MG ORAL TABLET Take one by mouth daily 08/20/04 MODAFINIL 47033200485 No Longer Active Mitch Urbina DO Active BACTRIM DS 800-160 MG ORAL TABLET 1 tab by mouth twice daily 201 10/19/09 TRIMETHOPRIM-SULFAMETHOXAZOLE 27963114772 No Longer Active C alberto Hays MD Active ADULT ASPIRIN LOW STRENGTH 81 MG ORAL TABLET DISINTEGR ATING 1 by mouth every daily ASPIRIN 18971248701 Active Mitch Urbina DO Ac tive METOPROLOL TARTRATE 50 MG ORAL TABLET 1 by mouth twice daily METOPROLOL TARTRATE 63635226410 Active Mitch Urbina DO Active BACTRIM DS 800-160 MG ORAL TABLET 1 tab by mouth twice daily 201 10/19/09 BACTRIM DS 800-160 MG ORAL TABLET 430928 TRIMETHOPRIM-SULFAMETHOXAZOLE Inactive PROVIGIL 100 MG ORAL TABLET Take one by mouth daily 08/20/04 PROVIGIL 100 MG ORAL TABLET 667738 MODAFINIL Inactive FUROSEMIDE 40 MG ORAL TABLET 1 by mouth daily FUROSEMIDE 40 MG ORAL TABLET 075562 FUROSEMIDE Inactive KLOR-CON 20 MEQ ORAL PACKET Take one by mouth daily 20 09/10/08 KLOR- CON 20 MEQ ORAL PACKET 0338536 POTASSIUM CHLORIDE Inactive LISINOPRIL 5 MG ORAL TABLET 1 by mouth every day 11/17 LISINOPRIL 5 MG ORAL TABLET 030617 LISINOPRIL Inactive COLCRYS 0.6 MG ORAL TABLET 1 po q 6 hours prn gout pain COLCRYS 0.6 MG ORAL TABLET 965171 COLCHICINE Inactive JANUVIA 100 MG ORAL TABLET 1/2 by mouth every day 2011 JANUVIA 100 MG ORAL TABLET SITAGLIPTIN PHOSPHATE Inactive SIMVASTATIN 20 MG ORAL TABLET 1 tab daily at bedtime 2 SIMVASTATIN 20 MG ORAL TABLET 013655 SIMVASTATIN Inactive COUMADIN 6 MG ORAL TABLET 1 by mouth every other day COUMADIN 6 MG ORAL TABLET 650247 WARFARIN SODIUM Inactive COUMADIN 5 MG ORAL TABLET 1 by mouth every other day COUMADIN 5 MG ORAL TABLET 470123 WARFARIN SODIUM Inactive LISINOPRIL 20 MG ORAL TABLET 1 tab po at HS LISINOPRIL 20 MG ORAL TABLET 581693 LISINOPRIL Inactive LISINOPRIL-HYDROCHLOROTHIAZIDE 20-12.5 MG ORAL TABLET 1 tab by m outh daily LISINOPRIL-HYDROCHLOROTHIAZIDE 20-12.5 MG ORAL TABLET 711523 LISINOPRIL-HYDROCHLOROTHIAZIDE Inactive POLYTRIM 33809-0.1 UNIT/ML-% OPHTHALMIC SOLUTION 1 rui p in affected eye every 3 hours while awake x 7 days POLYTRIM 1000 0-0.1 UNIT/ML-% OPHTHALMIC SOLUTION 843971 POLYMYXIN B-TRIMETHOPRIM Inactive COUMADIN 4 MG ORAL TABLET 1 tablet daily COUMADIN 4 MG ORAL TABLET 166996 WARFARIN SODIUM Inactive CLONIDINE HCL 0.1 MG ORAL TABLET 1 po bid 7 days, then 1/2 t ab po bid 7 days CLONIDINE HCL 0.1 MG ORAL TABLET 015281 CLONIDIN E HCL Inactive ALLOPURINOL 300 MG ORAL TABLET Take 1 tablet by mouth daily 2012 ALLOPURINOL 300 MG ORAL TABLET 293899 ALLOPURINOL I nactive MECLIZINE HCL 25 MG ORAL TABLET 1 po tid 3 days, then 1/2 ta b tid 3 days MECLIZINE HCL 25 MG ORAL TABLET 809013 MECLIZINE HCL Inactive AMLODIPINE BESYLATE 5 MG ORAL TABLET 1 tablet by mouth daily 201 01/20/04 AMLODIPINE BESYLATE 5 MG ORAL TABLET 985610 AMLODIPINE BESYLATE Inactive KEFLEX 500 MG ORAL CAPSULE 1 po qid K EFLEX 500 MG ORAL CAPSULE 049832 CEPHALEXIN Inactive COLCRYS 0.6 MG ORAL TABLET 1 tab qid prn gout COLCRYS 0.6 MG ORAL TABLET 988587 COLCHICINE Inactive FAMOTIDINE 20 MG ORAL TABLET by mouth twice a day 2017 FAMOTIDINE 20 MG ORAL TABLET 736921 FAMOTIDINE Inactive LOVENOX 100 MG/ML SUBCUTANEOUS SOLUTION One injection twice a da y LOVENOX 100 MG/ML SUBCUTANEOUS SOLUTION 874506 ENOXAPAR IN SODIUM Inactive Vital Signs Date [...] - Chem istry sodium, serum 139 mmol/L 963-875 3218/07/17 potassium, serum 4.2 mmol/L 3.5-5.2 chloride, serum 102 mmol/L 98-107 carbon dioxide, venous blood 28.9 mmol/L 21.0-32 .0 blood glucose 211 mg/dL 65-110 calcium, serum 10.6 mg/dL 8.5-10.1 urea nitrogen, blood 29 mg/dL 7-18 creatinine, serum 1.24 mg/dL 0.60-1.30 sodium, serum 141 mmol/L 357-297 4100/08/07 potassium, serum 4.5 mmol/L 3.5-5.2 chloride, serum [...] ... - Chemistry sodium, serum 144 mmol/L 798-538 2613/06/12 carbon dioxide, venous blood 26.6 mmol/L 21.0-32 [...] HGBA1C - Chemistry cholesterol, serum 136 mg/dL 160-253 1948/12/06 triglyceride, serum, fasting 247 mg/dL 30-200 HDL cholesterol, serum 41 mg/dL 32-60 LDL cholesterol, serum 46 mg/dL 0-130 aspartate aminotransferase (SGOT), serum 22 U/L 15-37 alanine aminotransferase (SGPT), serum 30 U/L 12-78 bilirubin, serum, total 0.80 mg/dL 0.00-1.00 hemoglobin A1C, blood, as % of total hemoglobin 6.4 % 4.3-6.0 Encounters Code Encounter Date Provider Facility CPT-39074 Level 3 Est. Patient 18:25:53 CDT Mitch luis [facility] CPT-38703 Level 3 Est. Patient 19:43:34 CDT Mitch luis [facility] CPT-19060 Level 4 Est. Patient 09:30:18 CDT Mitch luis [facility] CPT-12724 Level 3 Est. Patient 15:10:14 CDT [facility] CPT-00989 Level 3 Est. Patient 15:03:46 CDT Joe kamara [facility] CPT-56862 Level 3 Est. Patient 14:21:06 CDT Mitch luis [facility] CPT-37283 Level 3 Est. Patient 14:52:06 CDT Joe kamara [facility] CPT-27461 Level 3 Est. 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 Patient 09:37:15 CDT Mitch W L ee [facility] CPT-00671 Level 3 Est. Patient 17:01:00 FULL ROLL INSPECTOR Mitch W L ee DO [facility] CPT-15299 Level 3 Est. Patient 13:53:19 FULL ROLL INSPECTOR Mitch W L ee DO [facility] CPT-10311 Level 3 Est. Patient 19:19:37 FULL ROLL INSPECTOR Mitch W L ee DO [facility] CPT-30063 Level 3 Est. Patient 13:25:53 FULL ROLL INSPECTOR Tavo toure MD [facility] CPT-56351 Level 3 Est. Patient 18:17:28 CDT Mitch W L ee [facility] CPT-72570 Level 3 Est. Patient 15:22:57 CDT Mitch W L ee [facility] CPT-69898 Level 3 Est. Patient 18:21:50 CDT Mitch W L ee DO [facility] CPT-18595 Level 3 Est. Patient 18:20:38 CDT Mitch W L ee DO [facility] CPT-65921 Level 3 Est. Patient 15:37:55 CDT Mitch W L ee [facility] CPT-76487 Level 2 Est. Patient 15:54:44 CDT Carmine benton MD [facility]-61689 Level 3 Est. Patient 21:46:01 FULL ROLL INSPECTOR Mitch W L ee DO [facility] CPT-57180 Level 3 Est. Patient 22:15:50 CDT Mitch W L ee [facility] CPT-22187 Level 3 Est. Patient 10:48:15 CDT Mitch W L ee [facility] CPT-98720 Level 3 Est. Patient 23:20:57 CDT Tavo toure MD [facility] CPT-09036 Level 3 Est. Patient 16:26:13 CDT Mitch W L [facility] Procedures Code Procedure Name Date Entry Date Standard Desc ription CPT-01105 Venipuncture Draw Fee 09:26:17 CDT CPT-78509 PT/INR - LAB USE ONLY 13:32:49 FULL ROLL INSPECTOR CPT-67914 Venipuncture Draw Fee 13:32:49 FULL ROLL INSPECTOR CPT-43772 PT/INR - LAB USE ONLY 10:34:49 FULL ROLL INSPECTOR CPT-20312 Venipuncture Draw Fee 10:34:48 FULL ROLL INSPECTOR CPT-09234 PT/INR - LAB USE ONLY 09:22:03 FULL ROLL INSPECTOR CPT-05751 Venipuncture Draw Fee 09:22:02 FULL ROLL INSPECTOR CPT-09489 Hemoccult IFOBT - LAB USE ONLY 10:27:22 CDT CPT-44008 Venipuncture Draw Fee 08:27:08 CDT CPT-19847 Liver Profile - LAB USE ONLY 08:27:07 CDT 2 CPT-68408 Microalbumin - LAB USE ONLY 08:27:07 CDT 20 25/05/09 CPT-78149 PT/INR - LAB USE ONLY 08:27:07 CDT CPT-22392 HGBA1C - LAB USE ONLY 08:27:07 CDT CPT-67831 CBC - LAB USE ONLY 08:27:07 CDT CPT-32182 Venipuncture Draw Fee 11:09:14 CDT CPT-96412 Venipuncture Draw Fee 08:32:21 FULL ROLL INSPECTOR CPT-11374 Venipuncture Draw Fee 09:38:56 FULL ROLL INSPECTOR CPT-58604 No Charge Offi Visit 21:36:07 CDT 1 CPT-90439 Venipuncture Draw Fee 10:13:28 FULL ROLL INSPECTOR CPT-90042 Venipuncture Draw Fee 08:31:11 CDT CPT-17230 Aspir/Inject Med Joint 18:17:28 CDT CPT-50621 Venipuncture Draw Fee 10:13:30 CDT CPT-88177 Venipuncture Draw Fee 08:31:43 FULL ROLL INSPECTOR CPT-JTINJ Joint Injection 18:34:50 CDT CPT-92669 Knee 3V 12:25:09 CDT CPT-37832 Venipuncture Draw Fee 12:15:57 CDT CPT-060 Medical Surveillance Exam 21:31:43 CDT 2011 CPT-43918 Venipuncture Draw Fee 08:32:05 FULL ROLL INSPECTOR CPT-OV Office Visit 18:19:06 CDT
--- OUTSIDE RECORDS SUMMARY | 2020-01-18 13:16 | XMS REPORT | Clinical Summary ---
Author Author Admin, Mitch Leon Organization [facility] Address Unknown Phone Unavailable Allergies, Adverse Reactions, [...] abscess of trunk SEROMA 998.13 Resolved Mitch Ubrina DO Se mario complicating a procedure HYPERLIPIDEMIA [...] Coronary atherosclerosis of unspecified type of vessel, [place] or graft EDEMA 782.3 Resolved Mitch [...] 1 tablet by mouth daily AMLODIPINE BESYLATE 31497068961 No Longer Active Joe Williamson APRN Active MITIGARE 0.6 MG ORAL CAPS 2 capsules at onset of gout pain, then take one capsule at 1 hour if symptoms persist. COLCHICINE 59 617927181 Active Mitch Urbina DO Active COUMADIN 1 MG TAB 2 tabs orally daily with the 5mg tab to equal 7mg daily WARFARIN SODIUM 22839877153 Active Brenda Shen Active COLCRYS 0.6 MG TABS 1 tab qid prn gout COLCHICINE 37850871455 Active Norma Cazares Active INVOKANA 100 MG ORAL TABS 1 tablet orally daily CANAGLIFLOZIN 48338998010 Active Brenda Shen Active MINOXIDIL 2.5 MG TABS 1 tablet daily for high blood pressure 10/23 MINOXIDIL 02837930467 Active Ana Wallace Active MECLIZINE HCL 25 MG TAB 1 po tid 3 days, then 1/2 tab tid 3 days MECLIZINE HCL 12995571722 No Longer Active Corey SEUGRA Active ALLOPURINOL 300 MG TABS Take 1 tablet by mouth daily 2 ALLOPURINOL 86682234291 No Longer Active Corey SEGURA Activ e CLONIDINE HCL 0.1 MG TABS 1 po bid 7 days, then 1/2 tab po b id 7 days CLONIDINE HCL 41488767846 No Longer Active Corey SEGURA Active COUMADIN 5 MG TABS 1 tab PO daily WARFARIN SODIUM 55198519455 Active Mitch Urbina DO Active COUMADIN 4 MG TABS 1 tablet daily WARFARIN SODI UM 00098128434 No Longer Active Corey SEGRUA Active POLYTRIM 24589-9.1 UNIT/ML-% SOLN 1 drop in affected e ye every 3 hours while awake x 7 days POLYMYXIN B-TRIMETHOPRIM 35272580813 N o Longer Active Corey SEGURA Active LOSARTAN POTASSIUM-HCTZ 100-12.5 MG TABS 1 by mouth da [place] for high blood pressure LOSARTAN POTASSIUM-HCTZ 84084459230 Active Stephy Urbina DO Active LISINOPRIL-HYDROCHLOROTHIAZIDE 20-12.5 MG TABS 1 tab by mouth da rocky LISINOPRIL-HYDROCHLOROTHIAZIDE 28154208710 No Longer Active Mitch luis DO Active LISINOPRIL 20 MG TABS 1 tab po at HS LISINOPRIL 94115122897 No Longer Active Mitch Urbina DO Active COUMADIN 5 MG TABS 1 by mouth every other day WARFARIN SODIUM 89128502668 No Longer Active Mitch Urbina DO Active COUMADIN 6 MG TABS 1 by mouth every other day WARFARIN SODIUM 52328848763 No Longer Active Mitch Urbina DO Active SIMVASTATIN 40 MG TABS 1 tab daily at bedtime S IMVASTATIN 21451669927 Active Mitch Urbina DO Active SIMVASTATIN 20 MG TABS 1 tab daily at bedtime S IMVASTATIN 27397628325 No Longer Active Mitch Urbina DO Active LOVENOX 100 MG/ML SC SOLN One injection twice a day 09/15/15 ENOXAPARIN SODIUM 55633302375 No Longer Active Carmine Navarrete ctive JANUVIA 50 MG TABS Take one by mouth daily DIEGO GLIPTIN PHOSPHATE 51273047731 Active Mitch Urbina DO Active JANUVIA 100 MG TABS 1/2 by mouth every day DIEGO GLIPTIN PHOSPHATE 30861113622 No Longer Active Bijal Segal RN Active METFORMIN HCL 500 MG TABS 2 by mouth twice daily METFORMIN HCL 72403546787 Active Mitch Urbina DO Active GLIMEPIRIDE 4 MG TABS 1 tab po bid GLIMEPIRIDE 909587 98396 Active Mitch Urbina DO Active COLCRYS 0.6 MG TABS 1 po q 6 hours prn gout pain 03/02 COLCHICINE 28492391829 No Longer Active Camila Reese Active LISINOPRIL 5 MG TABS 1 by mouth every day LISIN OPRIL 79757505193 No Longer Active Nguyen Perez Active KLOR-CON 20 MEQ PACK Take one by mouth daily 8 POTASSIUM CHLORIDE 17880295570 No Longer Active Nguyen Perez Active FUROSEMIDE 40 MG TABS 1 by mouth daily FUROSEMI DE 38277083821 No Longer Active Nguyen Perez Active PROVIGIL 200 MG TABS 1/2 tab po q day MODAFINIL 92050 682542 Active Brenda Shen Active PROVIGIL 100 MG TABS Take one by mouth daily MO DAFINIL 38332934026 No Longer Active Mitch Urbina DO Active BACTRIM DS 800-160 MG TAB 1 tab by mouth twice daily 2 TRIMETHOPRIM-SULFAMETHOXAZOLE 23209076009 No Longer Active Renan Hays MD Active FAMOTIDINE 20 MG TABS by mouth twice a day FAMOTI DINE 22236796506 Active Mitch Urbina DO Active ADULT ASPIRIN LOW STRENGTH 81 MG TBDP 1 by mouth every daily ASPIRIN 41357455847 Active Mitch Urbina DO Active METOPROLOL TARTRATE 50 MG TABS 1 by mouth twice daily METOPROLOL TARTRATE 96800108315 Active Mitch Urbina DO Active BACTRIM DS 800-160 MG TAB 1 tab by mouth twice daily 2 BACTRIM DS 800-160 MG TAB 318431 TRIMETHOPRIM-SULFAMETHOXAZOLE Inac tive PROVIGIL 100 MG TABS Take one by mouth daily 4 PROVIGIL 100 MG TABS 170606 MODAFINIL Inactive FUROSEMIDE 40 MG TABS 1 by mouth daily FU ROSEMIDE 40 MG TABS 931120 FUROSEMIDE Inactive KLOR-CON 20 MEQ PACK Take one by mouth daily 8 KLOR-CON 20 MEQ PACK 8815065 POTASSIUM CHLORIDE Inactive LISINOPRIL 5 MG TABS 1 by mouth every day LISINOPRIL 5 MG TABS 853077 LISINOPRIL Inactive COLCRYS 0.6 MG TABS 1 po q 6 hours prn gout pain 03/02 COLCRYS 0.6 MG TABS 246238 COLCHICINE Inactive JANUVIA 100 MG TABS 1/2 by mouth every day JANUVI A 100 MG TABS SITAGLIPTIN PHOSPHATE Inactive SIMVASTATIN 20 MG TABS 1 tab daily at bedtime SIMVASTATIN 20 MG TABS 922741 SIMVASTATIN Inactive COUMADIN 6 MG TABS 1 by mouth every other day COUMADIN 6 MG TABS 377511 WARFARIN SODIUM Inactive COUMADIN 5 MG TABS 1 by mouth every other day COUMADIN 5 MG TABS 082765 WARFARIN SODIUM Inactive LISINOPRIL 20 MG TABS 1 tab po at HS KOKI NOPRIL 20 MG TABS 553026 LISINOPRIL Inactive LISINOPRIL-HYDROCHLOROTHIAZIDE 20-12.5 MG TABS 1 tab by mouth da rocky LISINOPRIL-HYDROCHLOROTHIAZIDE 20-12.5 MG TABS 252082 LISINOPRIL-HYDROCHLOROTHIAZIDE Inactive POLYTRIM 71311-5.1 UNIT/ML-% SOLN 1 drop in affected e ye every 3 hours while awake x 7 days POLYTRIM 55282-8.1 UNIT/ML-% SOLN 25480 7 POLYMYXIN B-TRIMETHOPRIM Inactive COUMADIN 4 MG TABS 1 tablet daily COUMADIN 4 MG TABS 315926 WARFARIN SODIUM Inactive CLONIDINE HCL 0.1 MG TABS 1 po bid 7 days, then 1/2 tab po b id 7 days CLONIDINE HCL 0.1 MG TABS 870627 CLONIDINE HCL I nactive ALLOPURINOL 300 MG TABS Take 1 tablet by mouth daily 2 ALLOPURINOL 300 MG TABS 921252 ALLOPURINOL Inactive MECLIZINE HCL 25 MG TAB 1 po tid 3 days, then 1/2 tab tid 3 days MECLIZINE HCL 25 MG TAB 821800 MECLIZINE HCL Inactive AMLODIPINE BESYLATE 5 MG TABS 1 tablet by mouth daily AMLODIPINE BESYLATE 5 MG TABS 467040 AMLODIPINE BESYLATE Inactive LOVENOX 100 MG/ML SC SOLN One injection twice a day 09/15/15 LOVENOX 100 MG/ML SC SOLN 244257 ENOXAPARIN SODIUM Inactive Vital Signs Date Name [...] Chart Maintenance: hemoccult added to [facility] - Chemistry occult blood, stool (E&M) Positive Lab Report: Lipid Panel, HEPATIC PANEL, MICROALB/CREAT W/RATIO, HGBA1C, CBC - Chemistry cholesterol, serum 136 mg/dL 706-116 3867/08/09 triglyceride, serum, fasting 187 mg/dL 30-200 HDL [...] 1.0-3.5 Encounters Code Encounter Date Provider Facility CPT-10848 Level 3 Est. Patient 15:10:14 CDT Joe kamara [facility] [place]-48136 Level 3 Est. Patient 15:03:46 CDT Joe kamara [facility] CPT-34693 Level 3 Est. Patient 14:21:06 CDT Mitch luis [facility] CPT-87027 Level 3 Est. Patient 14:52:06 CDT Joe kamara [facility] CPT-66937 Level 3 Est. Patient 09:34:30 BILINGUAL MANAGER Mitch luis [facility] CPT-18062 Level 3 Est. Patient 09:37:15 CDT Mitch luis [facility] CPT-95078 Level 3 Est. Patient 17:01:00 BILINGUAL MANAGER Mitch luis [facility] CPT-08279 Level 3 Est. Patient 13:53:19 BILINGUAL MANAGER Mitch luis [facility] CPT-30323 Level 3 Est. Patient 19:19:37 BILINGUAL MANAGER Mitch luis [facility] CPT-06140 Level 3 Est. Patient 13:25:53 BILINGUAL MANAGER Tavo toure MD [facility] CPT-38832 Level 3 Est. Patient 18:17:28 CDT Mitch luis [facility] CPT-11679 Level 3 Est. Patient 15:22:57 CDT Mitch luis [facility] CPT-98090 Level 3 Est. Patient 18:21:50 CDT Mitch luis [facility] CPT-85996 Level 3 Est. Patient 18:20:38 CDT Mitch luis [facility] CPT-77038 Level 3 Est. Patient 15:37:55 CDT Mitch luis [facility] CPT-65617 Level 2 Est. Patient 15:54:44 CDT Carmine benton MD [facility] CPT-78059 Level 3 Est. Patient 21:46:01 BILINGUAL MANAGER Mitch luis [facility] CPT-62595 Level 3 Est. Patient 22:15:50 CDT Mitch luis [facility] CPT-16720 Level 3 Est. Patient 10:48:15 CDT Mitch luis [facility] CPT-98533 Level 3 Est. Patient 23:20:57 CDT Tavo toure MD [facility] CPT-87491 Level 3 Est. Patient 16:26:13 CDT Mitch luis [facility] Procedures Code Procedure Name Date Entry Date Standard Desc ription CPT-60496 PT/INR - LAB USE ONLY 13:32:49 BILINGUAL MANAGER CPT-83460 Venipuncture Draw Fee 13:32:49 BILINGUAL MANAGER CPT-85910 PT/INR - LAB USE ONLY 10:34:49 BILINGUAL MANAGER CPT-24316 Venipuncture Draw Fee 10:34:48 BILINGUAL MANAGER CPT-53235 PT/INR - LAB USE ONLY 09:22:03 BILINGUAL MANAGER CPT-33668 Venipuncture Draw Fee 09:22:02 BILINGUAL MANAGER CPT-06045 Hemoccult IFOBT - LAB USE ONLY 10:27:22 CDT CPT-52765 Venipuncture Draw Fee 08:27:08 CDT CPT-26187 Liver Profile - LAB USE ONLY 08:27:07 CDT 2 CPT-36490 Microalbumin - LAB USE ONLY 08:27:07 CDT 20 25/05/09 CPT-27391 PT/INR - LAB USE ONLY 08:27:07 CDT CPT-93130 HGBA1C - LAB USE ONLY 08:27:07 CDT CPT-05621 CBC - LAB USE ONLY 08:27:07 CDT CPT-60267 Venipuncture Draw Fee 11:09:14 CDT CPT-21422 Venipuncture Draw Fee 08:32:21 BILINGUAL MANAGER CPT-23103 Venipuncture Draw Fee 09:38:56 BILINGUAL MANAGER CPT-04868 No Charge Offi Visit 21:36:07 CDT 1 CPT-61526 Venipuncture Draw Fee 10:13:28 BILINGUAL MANAGER CPT-79101 Venipuncture Draw Fee 08:31:11 CDT CPT-17252 Aspir/Inject Med Joint 18:17:28 CDT CPT-98073 Venipuncture Draw Fee 10:13:30 CDT CPT-16779 Venipuncture Draw Fee 08:31:43 BILINGUAL MANAGER CPT-JTINJ Joint Injection 18:34:50 CDT CPT-65624 Knee 3V 12:25:09 CDT CPT-87257 Venipuncture Draw Fee 12:15:57 CDT CPT-060 Medical Surveillance Exam 21:31:43 CDT 2011 CPT-35889 Venipuncture Draw Fee 08:32:05 BILINGUAL MANAGER CPT-OV Office Visit 18:19:06 CDT
--- OUTSIDE RECORDS SUMMARY | 2020-01-18 13:16 | XMS REPORT | Clinical Summary ---
[...] Coronary atherosclerosis of unspecified type of vessel, mash[place] or graft EDEMA 782.3 Active Mitch Urbina [...] 1 tablet by mouth daily AMLODIPINE BESYLATE 47682415316 Active Mitch Urbina DO Active MECLIZINE HCL 25 MG TAB 1 po tid 3 days, then 1/2 tab tid 3 days MECLIZINE HCL 41786525509 No Longer Active Corey SEGURA Active ALLOPURINOL 300 MG TABS Take 1 tablet by mouth daily 2 ALLOPURINOL 47884007101 No Longer Active Corey SEGURA Activ e CLONIDINE HCL 0.1 MG TABS 1 po bid 7 days, then 1/2 tab po b id 7 days CLONIDINE HCL 16052639262 No Longer Active Corey SEGURA Active COUMADIN 5 MG TABS 1 tab PO daily WARFARIN SODIUM 27141701832 Active Mitch Urbina DO Active COUMADIN 4 MG TABS 1 tablet daily WARFARIN SODI UM 33119112561 No Longer Active Corey SEGURA Active POLYTRIM 87635-0.1 UNIT/ML-% SOLN 1 drop in affected e ye every 3 hours while awake x 7 days POLYMYXIN B-TRIMETHOPRIM 75782887963 N o Longer Active Corey SEGURA Active LOSARTAN POTASSIUM-HCTZ 100-12.5 MG TABS 1 by mouth da rocky for high blood pressure LOSARTAN POTASSIUM-HCTZ 88247754284 Active Stephy Urbina DO Active LISINOPRIL-HYDROCHLOROTHIAZIDE 20-12.5 MG TABS 1 tab by mouth da rocky LISINOPRIL-HYDROCHLOROTHIAZIDE 11741430881 No Longer Active Mitch luis DO Active LISINOPRIL 20 MG TABS 1 tab po at HS LISINOPRIL 32613860555 No Longer Active Mitch Urbina DO Active COUMADIN 5 MG TABS 1 by mouth every other day WARFARIN SODIUM 31245753836 No Longer Active Mitch Urbina DO Active COUMADIN 6 MG TABS 1 by mouth every other day WARFARIN SODIUM 54797831368 No Longer Active Mitch Urbina DO Active COLCRYS 0.6 MG TABS 1 tab qid prn gout COLCHICINE 46412948036 Active Corey SEGURA Active SIMVASTATIN 40 MG TABS 1 tab daily at bedtime S IMVASTATIN 41699145435 Active Mitch Urbina DO Active SIMVASTATIN 20 MG TABS 1 tab daily at bedtime S IMVASTATIN 89774241062 No Longer Active Mitch Urbina DO Active LOVENOX 100 MG/ML SC SOLN One injection twice a day 09/15/15 ENOXAPARIN SODIUM 17459117600 No Longer Active Carmine Yusuf MD A ctive JANUVIA 50 MG TABS Take one by mouth daily DIEGO GLIPTIN PHOSPHATE 59450441168 Active Mitch Urbina DO Active JANUVIA 100 MG TABS 1/2 by mouth every day DIEGO GLIPTIN PHOSPHATE 59563406002 No Longer Active Bijal Segal RN Active METFORMIN HCL 500 MG TABS 2 by mouth twice daily METFORMIN HCL 68424840777 Active Mitch Urbina DO Active GLIMEPIRIDE 4 MG TABS 1 tab po bid GLIMEPIRIDE 282389 04717 Active Mitch Urbina DO Active COLCRYS 0.6 MG TABS 1 po q 6 hours prn gout pain 03/02 COLCHICINE 55219094469 No Longer Active Camilamargarita Reese Active LISINOPRIL 5 MG TABS 1 by mouth every day LISIN OPRIL 32807411800 No Longer Active Nguyenmolly Perez Active KLOR-CON 20 MEQ PACK Take one by mouth daily 8 POTASSIUM CHLORIDE 03367605240 No Longer Active Nguyenmolly Perez Active FUROSEMIDE 40 MG TABS 1 by mouth daily FUROSEMI DE 35846994179 No Longer Active Nguyen Perez Active PROVIGIL 200 MG TABS 1/2 tab po q day MODAFINIL 95441 042626 Active Mitch Urbina DO Active PROVIGIL 100 MG TABS Take one by mouth daily MO DAFINIL 62552078812 No Longer Active Mitch Urbina DO Active BACTRIM DS 800-160 MG TAB 1 tab by mouth twice daily TRIMETHOPRIM-SULFAMETHOXAZOLE 88188412326 No Longer Active Renan Hays MD Active FAMOTIDINE 20 MG TABS by mouth twice a day FAMOTI DINE 02335154073 Active Mitch Urbina DO Active ADULT ASPIRIN LOW STRENGTH 81 MG TBDP 1 by mouth every daily ASPIRIN 48406328245 Active Mitch Urbina DO Active METOPROLOL TARTRATE 50 MG TABS 1 by mouth twice daily METOPROLOL TARTRATE 09064782721 Active Curly Coker MD Active BACTRIM DS 800-160 MG TAB 1 tab by mouth twice daily 2 BACTRIM DS 800-160 MG TAB TRIMETHOPRIM-SULFAMETHOXAZOLE Inac tive PROVIGIL 100 MG TABS Take one by mouth daily 4 PROVIGIL 100 MG TABS 190455 MODAFINIL Inactive FUROSEMIDE 40 MG TABS 1 by mouth daily FU ROSEMIDE 40 MG TABS 338825 FUROSEMIDE Inactive KLOR-CON 20 MEQ PACK Take one by mouth daily 8 KLOR-CON 20 MEQ PACK 247886 POTASSIUM CHLORIDE Inactive LISINOPRIL 5 MG TABS 1 by mouth every day LISINOPRIL 5 MG TABS 094555 LISINOPRIL Inactive COLCRYS 0.6 MG TABS 1 po q 6 hours prn gout pain 03/02 COLCRYS 0.6 MG TABS 194002 COLCHICINE Inactive JANUVIA 100 MG TABS 1/2 by mouth every day JANUVI A 100 MG TABS SITAGLIPTIN PHOSPHATE Inactive SIMVASTATIN 20 MG TABS 1 tab daily at bedtime SIMVASTATIN 20 MG TABS 004025 SIMVASTATIN Inactive COUMADIN 6 MG TABS 1 by mouth every other day COUMADIN 6 MG TABS 311854 WARFARIN SODIUM Inactive COUMADIN 5 MG TABS 1 by mouth every other day COUMADIN 5 MG TABS 397081 WARFARIN SODIUM Inactive LISINOPRIL 20 MG TABS 1 tab po at HS KOKI NOPRIL 20 MG TABS 388439 LISINOPRIL Inactive LISINOPRIL-HYDROCHLOROTHIAZIDE 20-12.5 MG TABS 1 tab by mouth da rocky LISINOPRIL-HYDROCHLOROTHIAZIDE 20-12.5 MG TABS 907930 LISINOPRIL-HYDROCHLOROTHIAZIDE Inactive POLYTRIM 06403-3.1 UNIT/ML-% SOLN 1 drop in affected e ye every 3 hours while awake x 7 days POLYTRIM 58645-2.1 UNIT/ML-% SOLN 21260 7 POLYMYXIN B-TRIMETHOPRIM Inactive COUMADIN 4 MG TABS 1 tablet daily COUMADIN 4 MG TABS 036577 WARFARIN SODIUM Inactive CLONIDINE HCL 0.1 MG TABS 1 po bid 7 days, then 1/2 tab po b id 7 days CLONIDINE HCL 0.1 MG TABS 354755 CLONIDINE HCL I nactive ALLOPURINOL 300 MG TABS Take 1 tablet by mouth daily 2 ALLOPURINOL 300 MG TABS 008204 ALLOPURINOL Inactive MECLIZINE HCL 25 MG TAB 1 po tid 3 days, then 1/2 tab tid 3 days MECLIZINE HCL 25 MG TAB 217812 MECLIZINE HCL Inactive LOVENOX 100 MG/ML SC SOLN One injection twice a day 09/15/15 LOVENOX 100 MG/ML SC SOLN 597643 ENOXAPARIN SODIUM Inactive Vital Signs Date Name [...] Ag - Chemistry sodium, serum 141 mmol/L 942-640 9495/07/06 potassium, serum 4.4 mmol/L 3.5-5.2 chloride, serum [...] Panel - Chemistry sodium, serum 137 mmol/L 012-264 3381/11/14 potassium, serum 4.4 mmol/L 3.5-5.2 chloride, serum [...] 8.0 % 4.3-6.0 cholesterol, serum 130 mg/dL 534-139 6224/11/14 triglyceride, serum, fasting 288 mg/dL 30-200 HDL cholesterol, serum 33 mg/dL 32-96 LDL cholesterol, serum 39 mg/dL 0-130 Lab Report: Comp. Metabolic Panel, HGBA1 C, Lipid Panel, Prothrombin Time - Chemistry sodium, serum 136 mmol/L 496-016 4112/12/02 potassium, serum 4.4 mmol/L 3.5-5.2 chloride, serum [...] 7.6 % 4.3-6.0 cholesterol, serum 117 mg/dL 453-735 5031/12/02 triglyceride, serum, fasting 226 mg/dL 30-200 HDL [...] 7.0 % 4.3-6.0 cholesterol, serum 120 mg/dL 858-962 7884/07/06 triglyceride, serum, fasting 186 mg/dL 30-200 HDL [...] 1.0-3.5 Encounters Code Encounter Date Provider Facility CPT-59700 Level 3 Est. Patient 09:37:15 CDT Mitch luis [facility] CPT-43574 Level 3 Est. Patient 17:01:00 EQUIPMENT SERVICE LEAD Mitch luis DO [facility] CPT-98311 Level 3 Est. Patient 13:53:19 EQUIPMENT SERVICE LEAD Mitch Ambrose L janelle [facility] CPT-08701 Level 3 Est. Patient 19:19:37 EQUIPMENT SERVICE LEAD Mitch W L janelle [facility] CPT-24500 Level 3 Est. Patient 13:25:53 EQUIPMENT SERVICE LEAD Tavo toure MD [facility]-01992 Level 3 Est. Patient 18:17:28 CDT Mitch W L janelle [facility] CPT-22667 Level 3 Est. Patient 15:22:57 CDT Mitch W L janelle [facility] CPT-59952 Level 3 Est. Patient 18:21:50 CDT Mitch W L janelle [facility] CPT-90981 Level 3 Est. Patient 18:20:38 CDT Mitch W L ee [facility]-08398 Level 3 Est. Patient 15:37:55 CDT Mitch W L janelle [facility] CPT-61794 Level 2 Est. Patient 15:54:44 CDT Carmine benton MD [facility]-56234 Level 3 Est. Patient 21:46:01 EQUIPMENT SERVICE LEAD Mitch W L janelle [facility] CPT-84092 Level 3 Est. Patient 22:15:50 CDT Mitch W L ee [facility] CPT-90072 Level 3 Est. Patient 10:48:15 CDT Mitch W L ee [facility] CPT-40986 Level 3 Est. Patient 23:20:57 CDT Tavo toure MD [facility] CPT-76132 Level 3 Est. Patient 16:26:13 CDT Mitch luis DO [facility] Procedures Code Procedure Name Date Entry Date Standard Desc ription CPT-27737 No Charge Offi Visit 21:36:07 CDT 1 CPT-04022 Venipuncture Draw Fee 10:13:28 EQUIPMENT SERVICE LEAD CPT-95135 Venipuncture Draw Fee 08:31:11 CDT CPT-11503 Aspir/Inject Med Joint 18:17:28 CDT CPT-65341 Venipuncture Draw Fee 10:13:30 CDT CPT-26939 Venipuncture Draw Fee 08:31:43 EQUIPMENT SERVICE LEAD CPT-JTINJ Joint Injection 18:34:50 CDT CPT-71526 Knee 3V 12:25:09 CDT CPT-36022 Venipuncture Draw Fee 12:15:57 CDT CPT-060 Medical Surveillance Exam 21:31:43 CDT 2011 CPT-53858 Venipuncture Draw Fee 08:32:05 EQUIPMENT SERVICE LEAD CPT-OV Office Visit 18:19:06 CDT
--- OUTSIDE RECORDS SUMMARY | 2020-01-18 13:17 | XMS REPORT | Clinical Summary ---
[...] abscess of trunk SEROMA 998.13 Resolved Mitch Urbian DO Se mario complicating a procedure HYPERLIPIDEMIA [...] Lenore e DO BRUISE ICD-924.9 Inactive Mitch Urbnia DO OLECRANON BURSITIS, RIGHT ICD-726.33 Inactive Mitch [...] ( 6mg total ) 2015 WARFARIN SODIUM 86209519566 Active Domi Rivera MA Acti ve INVOKANA 100 MG ORAL TABS 1 tablet orally daily CANAGLIFLOZIN 80810687862 Active Kathie Juan RPT,RMA Active MINOXIDIL 2.5 MG TABS 1 tablet daily for high blood pressure 10/23 MINOXIDIL 79556797456 Active Mitch Urbina DO Active AMLODIPINE BESYLATE 5 MG TABS 1 tablet by mouth daily AMLODIPINE BESYLATE 25315714602 Active Domi Rivera MA Active MECLIZINE HCL 25 MG TAB 1 po tid 3 days, then 1/2 tab tid 3 days MECLIZINE HCL 93315067191 No Longer Active Corey SEGURA Active ALLOPURINOL 300 MG TABS Take 1 tablet by mouth daily 2 ALLOPURINOL 34076268933 No Longer Active Corey SEGURA Activ e CLONIDINE HCL 0.1 MG TABS 1 po bid 7 days, then 1/2 tab po b id 7 days CLONIDINE HCL 74681489669 No Longer Active Corey SEGURA Active COUMADIN 5 MG TABS 1 tab PO daily WARFARIN SODIUM 24124116687 Active Mitch Urbina DO Active COUMADIN 4 MG TABS 1 tablet daily WARFARIN SODI UM 12805254324 No Longer Active Corey SEGURA Active POLYTRIM 21152-1.1 UNIT/ML-% SOLN 1 drop in affected e ye every 3 hours while awake x 7 days POLYMYXIN B-TRIMETHOPRIM 40706431881 N o Longer Active Corey SEGURA Active LOSARTAN POTASSIUM-HCTZ 100-12.5 MG TABS 1 by mouth da rocky for high blood pressure LOSARTAN POTASSIUM-HCTZ 44133940446 Active Domi Rivera MA Active LISINOPRIL-HYDROCHLOROTHIAZIDE 20-12.5 MG TABS 1 tab by mouth da rocky LISINOPRIL-HYDROCHLOROTHIAZIDE 48206406150 No Longer Active Mitch luis DO Active LISINOPRIL 20 MG TABS 1 tab po at HS LISINOPRIL 70169616112 No Longer Active Mitch Urbina DO Active COUMADIN 5 MG TABS 1 by mouth every other day WARFARIN SODIUM 96854536484 No Longer Active Mitch Urbina DO Active COUMADIN 6 MG TABS 1 by mouth every other day WARFARIN SODIUM 47161321846 No Longer Active Mitch Urbina DO Active COLCRYS 0.6 MG TABS 1 tab qid prn gout COLCHICINE 46438678089 Active Corey SEGURA Active SIMVASTATIN 40 MG TABS 1 tab daily at bedtime S IMVASTATIN 73335717894 Active Domi Rivera MA Active SIMVASTATIN 20 MG TABS 1 tab daily at bedtime S IMVASTATIN 69582381484 No Longer Active Mitch Urbina DO Active LOVENOX 100 MG/ML SC SOLN One injection twice a day 09/15/15 ENOXAPARIN SODIUM 48623965008 No Longer Active Carmine Navarrete ctive JANUVIA 50 MG TABS Take one by mouth daily DIEGO GLIPTIN PHOSPHATE 64505190643 Active Domi Rivera MA Active JANUVIA 100 MG TABS 1/2 by mouth every day DIEGO GLIPTIN PHOSPHATE 27548667853 No Longer Active Bijal Segal RN Active METFORMIN HCL 500 MG TABS 2 by mouth twice daily METFORMIN HCL 67591948620 Active Domi Rivera MA Active GLIMEPIRIDE 4 MG TABS 1 tab po bid GLIMEPIRIDE 326933 04163 Active Domi Rivera MA Active COLCRYS 0.6 MG TABS 1 po q 6 hours prn gout pain 03/02 COLCHICINE 30882198704 No Longer Active Camila Reese Active LISINOPRIL 5 MG TABS 1 by mouth every day LISIN OPRIL 89642543135 No Longer Active Nguyenmolly Perez Active KLOR-CON 20 MEQ PACK Take one by mouth daily 8 POTASSIUM CHLORIDE 21211343693 No Longer Active Nguyenmolly Perez Active FUROSEMIDE 40 MG TABS 1 by mouth daily FUROSEMI DE 07390330380 No Longer Active Nguyen Ana Active PROVIGIL 200 MG TABS 1/2 tab po q day MODAFINIL 65559 886457 Active Domi Rivera MA Active PROVIGIL 100 MG TABS Take one by mouth daily MO DAFINIL 33725862532 No Longer Active Mitch Urbina DO Active BACTRIM DS 800-160 MG TAB 1 tab by mouth twice daily 2 TRIMETHOPRIM-SULFAMETHOXAZOLE 25202028850 No Longer Active Renan Hays MD Active FAMOTIDINE 20 MG TABS by mouth twice a day FAMOTI DINE 83614090522 Active Mitch Urbina DO Active ADULT ASPIRIN LOW STRENGTH 81 MG TBDP 1 by mouth every daily ASPIRIN 13811234007 Active Mitch Urbina DO Active METOPROLOL TARTRATE 50 MG TABS 1 by mouth twice daily METOPROLOL TARTRATE 34156762126 Active Domi Rivera MA Active BACTRIM DS 800-160 MG TAB 1 tab by mouth twice daily 2 BACTRIM DS 800-160 MG TAB 404442 TRIMETHOPRIM-SULFAMETHOXAZOLE Inac tive PROVIGIL 100 MG TABS Take one by mouth daily 4 PROVIGIL 100 MG TABS 844869 MODAFINIL Inactive FUROSEMIDE 40 MG TABS 1 by mouth daily FU ROSEMIDE 40 MG TABS 167095 FUROSEMIDE Inactive KLOR-CON 20 MEQ PACK Take one by mouth daily 8 KLOR-CON 20 MEQ PACK 147427 POTASSIUM CHLORIDE Inactive LISINOPRIL 5 MG TABS 1 by mouth every day LISINOPRIL 5 MG TABS 392695 LISINOPRIL Inactive COLCRYS 0.6 MG TABS 1 po q 6 hours prn gout pain 03/02 COLCRYS 0.6 MG TABS 825006 COLCHICINE Inactive JANUVIA 100 MG TABS 1/2 by mouth every day JANUVI A 100 MG TABS SITAGLIPTIN PHOSPHATE Inactive SIMVASTATIN 20 MG TABS 1 tab daily at bedtime SIMVASTATIN 20 MG TABS 587308 SIMVASTATIN Inactive COUMADIN 6 MG TABS 1 by mouth every other day COUMADIN 6 MG TABS 159263 WARFARIN SODIUM Inactive COUMADIN 5 MG TABS 1 by mouth every other day COUMADIN 5 MG TABS 692360 WARFARIN SODIUM Inactive LISINOPRIL 20 MG TABS 1 tab po at HS KOKI NOPRIL 20 MG TABS 241991 LISINOPRIL Inactive LISINOPRIL-HYDROCHLOROTHIAZIDE 20-12.5 MG TABS 1 tab by mouth da rocky LISINOPRIL-HYDROCHLOROTHIAZIDE 20-12.5 MG TABS 957257 LISINOPRIL-HYDROCHLOROTHIAZIDE Inactive POLYTRIM 19304-2.1 UNIT/ML-% SOLN 1 drop in affected e ye every 3 hours while awake x 7 days POLYTRIM 39433-0.1 UNIT/ML-% SOLN 11073 7 POLYMYXIN B-TRIMETHOPRIM Inactive COUMADIN 4 MG TABS 1 tablet daily COUMADIN 4 MG TABS 237210 WARFARIN SODIUM Inactive CLONIDINE HCL 0.1 MG TABS 1 po bid 7 days, then 1/2 tab po b id 7 days CLONIDINE HCL 0.1 MG TABS 692087 CLONIDINE HCL I nactive ALLOPURINOL 300 MG TABS Take 1 tablet by mouth daily 2 ALLOPURINOL 300 MG TABS 732935 ALLOPURINOL Inactive MECLIZINE HCL 25 MG TAB 1 po tid 3 days, then 1/2 tab tid 3 days MECLIZINE HCL 25 MG TAB 850323 MECLIZINE HCL Inactive LOVENOX 100 MG/ML SC SOLN One injection twice a day 09/15/15 LOVENOX 100 MG/ML SC SOLN 436458 ENOXAPARIN SODIUM Inactive Vital Signs Date Name [...] Ag - Chemistry sodium, serum 141 mmol/L 475-995 8024/07/06 potassium, serum 4.4 mmol/L 3.5-5.2 chloride, serum [...] - Chem istry sodium, serum 136 mmol/L 120-422 4953/01/14 carbon dioxide, venous blood 25.4 mmol/L 21.0-32 [...] 7.0 % 4.3-6.0 cholesterol, serum 120 mg/dL 861-670 0893/07/06 triglyceride, serum, fasting 186 mg/dL 30-200 HDL [...] 1.0-3.5 Encounters Code Encounter Date Provider Facility CPT-94668 Level 3 Est. Patient 09:34:30 CODING TECH Mitch luis [facility] CPT-29511 Level 3 Est. Patient 09:37:15 CDT Mitch luis [facility] CPT-16519 Level 3 Est. Patient 17:01:00 CODING TECH Mitch luis [facility] CPT-32361 Level 3 Est. Patient 13:53:19 CODING TECH Mitch luis [facility] CPT-51821 Level 3 Est. Patient 19:19:37 CODING TECH Mitch luis [facility] CPT-78552 Level 3 Est. Patient 13:25:53 CODING TECH Tavo toure MD [facility] CPT-97407 Level 3 Est. Patient 18:17:28 CDT Mitch ulis [facility] CPT-27319 Level 3 Est. Patient 15:22:57 CDT Mitch luis [facility] CPT-71449 Level 3 Est. Patient 18:21:50 CDT Mitch luis [facility] CPT-02824 Level 3 Est. Patient 18:20:38 CDT Mitch luis [facility] CPT-65634 Level 3 Est. Patient 15:37:55 CDT Mitch luis [facility] CPT-81855 Level 2 Est. Patient 15:54:44 CDT Carmine benton MD [facility] CPT-00069 Level 3 Est. Patient 21:46:01 CODING TECH Mitch luis [facility] CPT-30693 Level 3 Est. Patient 22:15:50 CDT Mitch luis [facility] CPT-99949 Level 3 Est. Patient 10:48:15 CDT Mitch luis [facility] CPT-57609 Level 3 Est. Patient 23:20:57 CDT Tavo toure MD [facility] CPT-35358 Level 3 Est. Patient 16:26:13 CDT Mitch luis [facility] Procedures Code Procedure Name Date Entry Date Standard Desc ription CPT-94043 Venipuncture Draw Fee 08:32:21 CODING TECH CPT-14574 Venipuncture Draw Fee 09:38:56 CODING TECH CPT-28960 No Charge Offi Visit 21:36:07 CDT 1 CPT-79638 Venipuncture Draw Fee 10:13:28 CODING TECH CPT-50470 Venipuncture Draw Fee 08:31:11 CDT CPT-36035 Aspir/Inject Med Joint 18:17:28 CDT CPT-37442 Venipuncture Draw Fee 10:13:30 CDT CPT-54168 Venipuncture Draw Fee 08:31:43 CODING TECH CPT-JTINJ Joint Injection 18:34:50 CDT CPT-83751 Knee 3V 12:25:09 CDT CPT-43059 Venipuncture Draw Fee 12:15:57 CDT CPT-060 Medical Surveillance Exam 21:31:43 CDT 2011 CPT-34926 Venipuncture Draw Fee 08:32:05 CODING TECH CPT-OV Office Visit 18:19:06 CDT
--- OUTSIDE RECORDS SUMMARY | 2020-01-18 13:17 | XMS REPORT | Clinical Summary ---
[...] ( 6mg total ) 2015 WARFARIN SODIUM 09041026842 Active Jannette Alcides RMA Act juan INVOKANA 100 MG ORAL TABS 1 tablet orally daily CANAGLIFLOZIN 49740600916 Active Kathie Juan RPT,RMA Active MINOXIDIL 2.5 MG TABS 1 tablet daily for high blood pressure 10/23 MINOXIDIL 54529495531 Active Mitch Urbina DO Active AMLODIPINE BESYLATE 5 MG TABS 1 tablet by mouth daily AMLODIPINE BESYLATE 42864552940 Active Domi Rivera MA Active MECLIZINE HCL 25 MG TAB 1 po tid 3 days, then 1/2 tab tid 3 days MECLIZINE HCL 98415913135 No Longer Active Corey SEGURA Active ALLOPURINOL 300 MG TABS Take 1 tablet by mouth daily 2 ALLOPURINOL 70184718583 No Longer Active Corey SEGURA Activ e CLONIDINE HCL 0.1 MG TABS 1 po bid 7 days, then 1/2 tab po b id 7 days CLONIDINE HCL 91721031675 No Longer Active Corey SEGURA Active COUMADIN 5 MG TABS 1 tab PO daily WARFARIN SODIUM 15767075959 Active Domi Rivera MA Active COUMADIN 4 MG TABS 1 tablet daily WARFARIN SODI UM 21343078135 No Longer Active Corey SEGURA Active POLYTRIM 84906-2.1 UNIT/ML-% SOLN 1 drop in affected e ye every 3 hours while awake x 7 days POLYMYXIN B-TRIMETHOPRIM 03093678244 N o Longer Active Corey SEGURA Active LOSARTAN POTASSIUM-HCTZ 100-12.5 MG TABS 1 by mouth da rocky for high blood pressure LOSARTAN POTASSIUM-HCTZ 87380210142 Active Domi Rivera MA Active LISINOPRIL-HYDROCHLOROTHIAZIDE 20-12.5 MG TABS 1 tab by mouth da rocky LISINOPRIL-HYDROCHLOROTHIAZIDE 81321488751 No Longer Active Mitch luis DO Active LISINOPRIL 20 MG TABS 1 tab po at HS LISINOPRIL 14693173223 No Longer Active Mitch Urbina DO Active COUMADIN 5 MG TABS 1 by mouth every other day WARFARIN SODIUM 65516902742 No Longer Active Mitch Urbina DO Active COUMADIN 6 MG TABS 1 by mouth every other day WARFARIN SODIUM 42757831250 No Longer Active Mitch Urbina DO Active COLCRYS 0.6 MG TABS 1 tab qid prn gout COLCHICINE 25792513482 Active Corey SEGURA Active SIMVASTATIN 40 MG TABS 1 tab daily at bedtime S IMVASTATIN 88901710541 Active Domi Rivera MA Active SIMVASTATIN 20 MG TABS 1 tab daily at bedtime S IMVASTATIN 25063159674 No Longer Active Mitch Urbina DO Active LOVENOX 100 MG/ML SC SOLN One injection twice a day 09/15/15 ENOXAPARIN SODIUM 52579339395 No Longer Active Carmine Navarrete ctive JANUVIA 50 MG TABS Take one by mouth daily DIEGO GLIPTIN PHOSPHATE 81749715741 Active Domi Rivera MA Active JANUVIA 100 MG TABS 1/2 by mouth every day DIEGO GLIPTIN PHOSPHATE 97347686915 No Longer Active Bijal Segal RN Active METFORMIN HCL 500 MG TABS 2 by mouth twice daily METFORMIN HCL 10424034103 Active Domi Rivera MA Active GLIMEPIRIDE 4 MG TABS 1 tab po bid GLIMEPIRIDE 764470 97491 Active Domi Rivera MA Active COLCRYS 0.6 MG TABS 1 po q 6 hours prn gout pain 03/02 COLCHICINE 51747203188 No Longer Active Camila Reese Active LISINOPRIL 5 MG TABS 1 by mouth every day LISIN OPRIL 35992349234 No Longer Active Nguyen Perez Active KLOR-CON 20 MEQ PACK Take one by mouth daily 8 POTASSIUM CHLORIDE 35972853059 No Longer Active Nguyen Perez Active FUROSEMIDE 40 MG TABS 1 by mouth daily FUROSEMI DE 35677966231 No Longer Active Nguyenmolly Perez Active PROVIGIL 200 MG TABS 1/2 tab po q day MODAFINIL 80680 461774 Active Domi Rivera MA Active PROVIGIL 100 MG TABS Take one by mouth daily MO DAFINIL 54360524957 No Longer Active Mitch Urbina DO Active BACTRIM DS 800-160 MG TAB 1 tab by mouth twice daily 2 TRIMETHOPRIM-SULFAMETHOXAZOLE 46714869406 No Longer Active Renan Hays MD Active FAMOTIDINE 20 MG TABS by mouth twice a day FAMOTI DINE 44090370453 Active Mitch Urbina DO Active ADULT ASPIRIN LOW STRENGTH 81 MG TBDP 1 by mouth every daily ASPIRIN 18327545668 Active Mitch Urbina DO Active METOPROLOL TARTRATE 50 MG TABS 1 by mouth twice daily METOPROLOL TARTRATE 07475396230 Active Domi Rivera MA Active BACTRIM DS 800-160 MG TAB 1 tab by mouth twice daily 2 BACTRIM DS 800-160 MG TAB 481767 TRIMETHOPRIM-SULFAMETHOXAZOLE Inac tive PROVIGIL 100 MG TABS Take one by mouth daily 4 PROVIGIL 100 MG TABS 136424 MODAFINIL Inactive FUROSEMIDE 40 MG TABS 1 by mouth daily FU ROSEMIDE 40 MG TABS 215114 FUROSEMIDE Inactive KLOR-CON 20 MEQ PACK Take one by mouth daily 8 KLOR-CON 20 MEQ PACK 456089 POTASSIUM CHLORIDE Inactive LISINOPRIL 5 MG TABS 1 by mouth every day LISINOPRIL 5 MG TABS 590905 LISINOPRIL Inactive COLCRYS 0.6 MG TABS 1 po q 6 hours prn gout pain 03/02 COLCRYS 0.6 MG TABS 016809 COLCHICINE Inactive JANUVIA 100 MG TABS 1/2 by mouth every day JANUVI A 100 MG TABS SITAGLIPTIN PHOSPHATE Inactive SIMVASTATIN 20 MG TABS 1 tab daily at bedtime SIMVASTATIN 20 MG TABS 356398 SIMVASTATIN Inactive COUMADIN 6 MG TABS 1 by mouth every other day COUMADIN 6 MG TABS 492130 WARFARIN SODIUM Inactive COUMADIN 5 MG TABS 1 by mouth every other day COUMADIN 5 MG TABS 210352 WARFARIN SODIUM Inactive LISINOPRIL 20 MG TABS 1 tab po at HS KOKI NOPRIL 20 MG TABS 282063 LISINOPRIL Inactive LISINOPRIL-HYDROCHLOROTHIAZIDE 20-12.5 MG TABS 1 tab by mouth da rocky LISINOPRIL-HYDROCHLOROTHIAZIDE 20-12.5 MG TABS 289370 LISINOPRIL-HYDROCHLOROTHIAZIDE Inactive POLYTRIM 03239-0.1 UNIT/ML-% SOLN 1 drop in affected e ye every 3 hours while awake x 7 days POLYTRIM 88810-9.1 UNIT/ML-% SOLN 36106 7 POLYMYXIN B-TRIMETHOPRIM Inactive COUMADIN 4 MG TABS 1 tablet daily COUMADIN 4 MG TABS 216426 WARFARIN SODIUM Inactive CLONIDINE HCL 0.1 MG TABS 1 po bid 7 days, then 1/2 tab po b id 7 days CLONIDINE HCL 0.1 MG TABS 167702 CLONIDINE HCL I nactive ALLOPURINOL 300 MG TABS Take 1 tablet by mouth daily 2 ALLOPURINOL 300 MG TABS 014176 ALLOPURINOL Inactive MECLIZINE HCL 25 MG TAB 1 po tid 3 days, then 1/2 tab tid 3 days MECLIZINE HCL 25 MG TAB 681108 MECLIZINE HCL Inactive LOVENOX 100 MG/ML SC SOLN One injection twice a day 20 09/15/15 LOVENOX 100 MG/ML SC SOLN 099043 ENOXAPARIN SODIUM Inactive Vital Signs Date Name [...] 11 .6-14.8 platelet count 276 10^3/MM^3 10*3/mm3 569-990 7991/01/14 leukocyte count, blood 7.1 10^3/MM^3 10*3/mm3 4.6-10.2 erythrocyte (RBC) count 4.57 10^6/MM^3 10*6/mm3 4.69-6.1 3 hemoglobin, blood 12.2 g/dL 13.5-17.5 hematocrit, blood 37.3 % 41.0-53.0 Lab Report: CBC, Comp. Metabolic Panel, Prostatic Specific Ag - Chemistry sodium, serum 141 mmol/L 407-474 6432/07/06 potassium, serum 4.4 mmol/L 3.5-5.2 chloride, serum [...] - Chem istry sodium, serum 136 mmol/L 066-970 1029/01/14 carbon dioxide, venous blood 25.4 mmol/L 21.0-32 .0 potassium, serum 4.2 mmol/L 3.5-5.2 chloride, serum 100 mmol/L 98-107 creatinine, serum 1.11 mg/dL 0.55-1.30 alanine aminotransferase (SGPT), serum 37 U/L 12-78 aspartate aminotransferase (SGOT), serum 26 U/L 15-37 calcium, serum 9.7 mg/dL 8.5-10.1 bilirubin, serum, total 0.70 mg/dL 0.00-1.00 blood glucose 241 mg/dL 65-110 urea nitrogen, blood 25 mg/dL 7-18 Lab Report: HGBA1C, Lipid Panel - Chemis try LDL cholesterol, serum 49 mg/dL 0-130 HDL cholesterol, serum 34 mg/dL 32-96 triglyceride, serum, fasting 186 mg/dL 30-200 cholesterol, serum 120 mg/dL 474-498 8428/07/06 hemoglobin A1C, blood, as % of total hemoglobin 7.0 % 4.3-6.0 Lab Report: HGBA1C, Prothrombin Time [...] ratio (INR) 2.3 1.0-3.5 prothrombin time (patient) 18.9 SECS s 11.1-13.4 international normalized ratio (INR) 2.4 1.0-3.5 prothrombin time (patient) 16.2 SECS s 11.1-13.4 international normalized ratio (INR) 1.8 1.0-3.5 prothrombin time (patient) 14.5 SECS s 11.1-13.4 international normalized ratio (INR) 1.5 1.0-3.5 prothrombin time (patient) 17.1 SECS s 11.1-13.4 international normalized ratio (INR) 2.0 1.0-3.5 Encounters Code Encounter Date Provider Facility CPT-88798 Level 3 Est. Patient 09:34:30 [employer]AL [employer]CHER Mitch luis [facility] CPT-08417 Level 3 Est. Patient 09:37:15 CDT Mitch luis [facility] CPT-31089 Level 3 Est. Patient 17:01:00 [employer]AL RUG STRETCHER Mitch luis [facility] CPT-60426 Level 3 Est. Patient 13:53:19 ORIENTAL RUG STRETCHER Mitch luis [facility] CPT-34048 Level 3 Est. Patient 19:19:37 OR[employer]AL RUG STRETCHER Mitch luis [facility] CPT-98200 Level 3 Est. Patient 13:25:53 ORIENTAL RUG STRETCHER Tavo toure MD [facility] CPT-81539 Level 3 Est. Patient 18:17:28 CDT Mitch luis [facility] CPT-36816 Level 3 Est. Patient 15:22:57 CDT Mitch luis [facility] CPT-83880 Level 3 Est. Patient 18:21:50 CDT Mitch luis [facility] CPT-59893 Level 3 Est. Patient 18:20:38 CDT Mitch luis [facility] CPT-09412 Level 3 Est. Patient 15:37:55 CDT Mitch luis [facility] CPT-01217 Level 2 Est. Patient 15:54:44 CDT Carmine benton MD [facility] CPT-76170 Level 3 Est. Patient 21:46:01 [employer]AL RUG STRETCHER Mitch luis [facility] CPT-07060 Level 3 Est. Patient 22:15:50 CDT Mitch luis [facility] CPT-46560 Level 3 Est. Patient 10:48:15 CDT Mitch luis [facility] CPT-18678 Level 3 Est. Patient 23:20:57 CDT Tavo toure MD [facility] CPT-82046 Level 3 Est. Patient 16:26:13 CDT Mitch luis [facility] Procedures Code Procedure Name Date Entry Date Standard Desc ription CPT-04642 Venipuncture Draw Fee 08:32:21 [employer]AL [employer] CPT-02829 Venipuncture Draw Fee 09:38:56 [employer]AL [employer]ER CPT-93227 No Charge Offi Visit 21:36:07 CDT 1 CPT-04064 Venipuncture Draw Fee 10:13:28 [employer]AL [employer]CHER CPT-95252 Venipuncture Draw Fee 08:31:11 CDT CPT-28648 Aspir/Inject Med Joint 18:17:28 CDT CPT-45137 Venipuncture Draw Fee 10:13:30 CDT CPT-16371 Venipuncture Draw Fee 08:31:43 [employer]AL RUG STRETCHER CPT-JTINJ Joint Injection 18:34:50 CDT CPT-21518 Knee 3V 12:25:09 CDT CPT-82059 Venipuncture Draw Fee 12:15:57 CDT CPT-060 Medical Surveillance Exam 21:31:43 CDT 2011 CPT-43951 Venipuncture Draw Fee 08:32:05 ORIENTAL RUG STRETCHER CPT-OV Office Visit 18:19:06 CDT
--- OUTSIDE RECORDS SUMMARY | 2020-01-18 13:17 | XMS REPORT | Clinical Summary ---
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 COLCHICINE 59 454976127 Active Mitch Urbina DO Active COUMADIN 1 MG TAB 2 tabs orally daily with the 5mg tab to equal 7mg daily WARFARIN SODIUM 40198544482 Active Brenda Shen Active COLCRYS 0.6 MG TABS 1 tab qid prn gout COLCHICINE 65768698451 Active Norma Cazares Active INVOKANA 100 MG ORAL TABS 1 tablet orally daily CANAGLIFLOZIN 63757293797 Active Brenda Shen Active MINOXIDIL 2.5 MG TABS 1 tablet daily for high blood pressure 10/23 MINOXIDIL 91790922622 Active Ana Wallace Active MECLIZINE HCL 25 MG TAB 1 po tid 3 days, then 1/2 tab tid 3 days MECLIZINE HCL 63488009122 No Longer Active Corey SEGURA Active ALLOPURINOL 300 MG TABS Take 1 tablet by mouth daily 2 ALLOPURINOL 74630264322 No Longer Active Corey SEGURA Activ e CLONIDINE HCL 0.1 MG TABS 1 po bid 7 days, then 1/2 tab po b id 7 days CLONIDINE HCL 93988081277 No Longer Active Corey SEGURA Active COUMADIN 5 MG TABS 1 tab PO daily WARFARIN SODIUM 56309506914 Active Mitch Urbina DO Active COUMADIN 4 MG TABS 1 tablet daily WARFARIN SODI UM 80778500868 No Longer Active Corey SEGURA Active POLYTRIM 71711-9.1 UNIT/ML-% SOLN 1 drop in affected e ye every 3 hours while awake x 7 days POLYMYXIN B-TRIMETHOPRIM 89464866960 N o Longer Active Corey SEGURA Active LOSARTAN POTASSIUM-HCTZ 100-12.5 MG TABS 1 by mouth da [place] for high blood pressure LOSARTAN POTASSIUM-HCTZ 38894684234 Active Stephy Urbina DO Active LISINOPRIL-HYDROCHLOROTHIAZIDE 20-12.5 MG TABS 1 tab by mouth da rocky LISINOPRIL-HYDROCHLOROTHIAZIDE 51554959657 No Longer Active Mitch luis DO Active LISINOPRIL 20 MG TABS 1 tab po at HS LISINOPRIL 95214281587 No Longer Active Mitch Urbina DO Active COUMADIN 5 MG TABS 1 by mouth every other day WARFARIN SODIUM 94771950340 No Longer Active Mitch Ambrose Carlitos DO Active COUMADIN 6 MG TABS 1 by mouth every other day WARFARIN SODIUM 53278835492 No Longer Active Mitch Urbina DO Active SIMVASTATIN 40 MG TABS 1 tab daily at bedtime S IMVASTATIN 77711323702 Active Mitch Urbina DO Active SIMVASTATIN 20 MG TABS 1 tab daily at bedtime S IMVASTATIN 40453694287 No Longer Active Mitch Urbina DO Active LOVENOX 100 MG/ML SC SOLN One injection twice a day 09/15/15 ENOXAPARIN SODIUM 91536721537 No Longer Active Carmine Navarrete ctive JANUVIA 50 MG TABS Take one by mouth daily DIEGO GLIPTIN PHOSPHATE 44908296612 Active Mitch Urbina DO Active JANUVIA 100 MG TABS 1/2 by mouth every day DIEGO GLIPTIN PHOSPHATE 31055294928 No Longer Active Bijal Segal RN Active METFORMIN HCL 500 MG TABS 2 by mouth twice daily METFORMIN HCL 09191052347 Active Mitch Urbina DO Active GLIMEPIRIDE 4 MG TABS 1 tab po bid GLIMEPIRIDE 286668 12878 Active Mitch Urbina DO Active COLCRYS 0.6 MG TABS 1 po q 6 hours prn gout pain 03/02 COLCHICINE 83370483616 No Longer Active Camila Reese Active LISINOPRIL 5 MG TABS 1 by mouth every day LISIN OPRIL 20897591466 No Longer Active Nguyen Perez Active KLOR-CON 20 MEQ PACK Take one by mouth daily 8 POTASSIUM CHLORIDE 82259597468 No Longer Active Nguyen Perez Active FUROSEMIDE 40 MG TABS 1 by mouth daily FUROSEMI DE 85976648609 No Longer Active Nguyen Perez Active PROVIGIL 200 MG TABS 1/2 tab po q day MODAFINIL 92556 069216 Active Kathie Juan RPT,RMA Active PROVIGIL 100 MG TABS Take one by mouth daily MO DAFINIL 11943089659 No Longer Active Mitch Urbina DO Active BACTRIM DS 800-160 MG TAB 1 tab by mouth twice daily 2 TRIMETHOPRIM-SULFAMETHOXAZOLE 05544769448 No Longer Active Renan Hays MD Active FAMOTIDINE 20 MG TABS by mouth twice a day FAMOTI DINE 50032731089 Active Mitch Urbina DO Active ADULT ASPIRIN LOW STRENGTH 81 MG TBDP 1 by mouth every daily ASPIRIN 30249872207 Active Mitch Urbina DO Active METOPROLOL TARTRATE 50 MG TABS 1 by mouth twice daily METOPROLOL TARTRATE 11797646698 Active Mitch Urbina DO Active BACTRIM DS 800-160 MG TAB 1 tab by mouth twice daily 2 BACTRIM DS 800-160 MG TAB 950324 TRIMETHOPRIM-SULFAMETHOXAZOLE Inac tive PROVIGIL 100 MG TABS Take one by mouth daily 4 PROVIGIL 100 MG TABS 853391 MODAFINIL Inactive FUROSEMIDE 40 MG TABS 1 by mouth daily FU ROSEMIDE 40 MG TABS 871716 FUROSEMIDE Inactive KLOR-CON 20 MEQ PACK Take one by mouth daily 8 KLOR-CON 20 MEQ PACK 517147 POTASSIUM CHLORIDE Inactive LISINOPRIL 5 MG TABS 1 by mouth every day LISINOPRIL 5 MG TABS 578779 LISINOPRIL Inactive COLCRYS 0.6 MG TABS 1 po q 6 hours prn gout pain 03/02 COLCRYS 0.6 MG TABS 498295 COLCHICINE Inactive JANUVIA 100 MG TABS 1/2 by mouth every day JANUVI A 100 MG TABS SITAGLIPTIN PHOSPHATE Inactive SIMVASTATIN 20 MG TABS 1 tab daily at bedtime SIMVASTATIN 20 MG TABS 648948 SIMVASTATIN Inactive COUMADIN 6 MG TABS 1 by mouth every other day COUMADIN 6 MG TABS 968049 WARFARIN SODIUM Inactive COUMADIN 5 MG TABS 1 by mouth every other day COUMADIN 5 MG TABS 870514 WARFARIN SODIUM Inactive LISINOPRIL 20 MG TABS 1 tab po at HS KOKI NOPRIL 20 MG TABS 970695 LISINOPRIL Inactive LISINOPRIL-HYDROCHLOROTHIAZIDE 20-12.5 MG TABS 1 tab by mouth da rocky LISINOPRIL-HYDROCHLOROTHIAZIDE 20-12.5 MG TABS 628971 LISINOPRIL-HYDROCHLOROTHIAZIDE Inactive POLYTRIM 35181-9.1 UNIT/ML-% SOLN 1 drop in affected e ye every 3 hours while awake x 7 days POLYTRIM 50320-1.1 UNIT/ML-% SOLN 01119 7 POLYMYXIN B-TRIMETHOPRIM Inactive COUMADIN 4 MG TABS 1 tablet daily COUMADIN 4 MG TABS 819074 WARFARIN SODIUM Inactive CLONIDINE HCL 0.1 MG TABS 1 po bid 7 days, then 1/2 tab po b id 7 days CLONIDINE HCL 0.1 MG TABS 235450 CLONIDINE HCL I nactive ALLOPURINOL 300 MG TABS Take 1 tablet by mouth daily 2 ALLOPURINOL 300 MG TABS 875092 ALLOPURINOL Inactive MECLIZINE HCL 25 MG TAB 1 po tid 3 days, then 1/2 tab tid 3 days MECLIZINE HCL 25 MG TAB 914479 MECLIZINE HCL Inactive AMLODIPINE BESYLATE 5 MG TABS 1 tablet by mouth daily AMLODIPINE BESYLATE 5 MG TABS 204000 AMLODIPINE BESYLATE Inactive LOVENOX 100 MG/ML SC SOLN One injection twice a day 09/15/15 LOVENOX 100 MG/ML SC SOLN 973366 ENOXAPARIN SODIUM Inactive Vital Signs Date Name [...] Range Description Chart Maintenance: hemoccult added to [facility] - Chemistry occult blood, stool (E&M) Positive Lab Report: HGBA1C - Chemistry hemoglobin A1C, blood, as % of total hemoglobin 6.6 % 4.3-6.0 Lab Report: Lipid Panel, HEPATIC PANEL, MICROALB/CREAT W/RATIO, HGBA1C, CBC - Chemistry cholesterol, serum 136 mg/dL 735-418 5217/08/09 triglyceride, serum, fasting 187 mg/dL 30-200 HDL [...] 1.0-3.5 Encounters Code Encounter Date Provider Facility CPT-82669 Level 3 Est. Patient 15:10:14 CDT Joe kamara [facility] CPT-38895 Level 3 Est. Patient 15:03:46 CDT Joe kamara [facility] CPT-37792 Level 3 Est. Patient 14:21:06 CDT Mitch luis [facility] CPT-18941 Level 3 Est. Patient 14:52:06 CDT Joe kamara [facility] CPT-81089 Level 3 Est. Patient 09:34:30 [employer] Mitch luis [facility] CPT-23038 Level 3 Est. Patient 09:37:15 CDT Mitch luis [facility] CPT-57249 Level 3 Est. Patient 17:01:00 [employer] Mitch luis [facility] CPT-48185 Level 3 Est. Patient 13:53:19 [employer] Mitch luis [facility] CPT-14052 Level 3 Est. Patient 19:19:37 [employer] Mitch luis [facility] CPT-65362 Level 3 Est. Patient 13:25:53 [employer] Tavo toure MD [facility] CPT-55760 Level 3 Est. Patient 18:17:28 CDT Mitch Arnol L janelle [facility] CPT-40137 Level 3 Est. Patient 15:22:57 CDT Mitch W L janelle DO [facility] CPT-15932 Level 3 Est. Patient 18:21:50 CDT Mitch W L janelle [facility] CPT-24712 Level 3 Est. Patient 18:20:38 CDT Mitch W L janelle [facility] CPT-33363 Level 3 Est. Patient 15:37:55 CDT Mitch Arnol luis [facility] CPT-36516 Level 2 Est. Patient 15:54:44 CDT Carmine benton MD [facility] CPT-47680 Level 3 Est. Patient 21:46:01 [employer] Mitch luis [facility] CPT-18259 Level 3 Est. Patient 22:15:50 CDT Mitch Arnol luis [facility] CPT-46129 Level 3 Est. Patient 10:48:15 CDT Mitch luis [facility] CPT-36649 Level 3 Est. Patient 23:20:57 CDT Tavo toure MD [facility] CPT-59347 Level 3 Est. Patient 16:26:13 CDT Mitch luis [facility] Procedures Code Procedure Name Date Entry Date Standard Desc ription CPT-54317 PT/INR - LAB USE ONLY 13:32:49 [employer] CPT-73550 Venipuncture Draw Fee 13:32:49 [employer] CPT-37793 PT/INR - LAB USE ONLY 10:34:49 [employer] CPT-57072 Venipuncture Draw Fee 10:34:48 [employer] CPT-87103 PT/INR - LAB USE ONLY 09:22:03 [employer] CPT-99446 Venipuncture Draw Fee 09:22:02 [employer] CPT-59956 Hemoccult IFOBT - LAB USE ONLY 10:27:22 CDT CPT-51209 Venipuncture Draw Fee 08:27:08 CDT CPT-57515 Liver Profile - LAB USE ONLY 08:27:07 CDT 2 CPT-23229 Microalbumin - LAB USE ONLY 08:27:07 CDT 20 25/05/09 CPT-97445 PT/INR - LAB USE ONLY 08:27:07 CDT CPT-13642 HGBA1C - LAB USE ONLY 08:27:07 CDT CPT-36703 CBC - LAB USE ONLY 08:27:07 CDT CPT-82867 Venipuncture Draw Fee 11:09:14 CDT CPT-46672 Venipuncture Draw Fee 08:32:21 [employer] CPT-67153 Venipuncture Draw Fee 09:38:56 [employer] CPT-27083 No Charge Offi Visit 21:36:07 CDT 1 CPT-26548 Venipuncture Draw Fee 10:13:28 [employer] CPT-45242 Venipuncture Draw Fee 08:31:11 CDT CPT-83071 Aspir/Inject Med Joint 18:17:28 CDT CPT-59591 Venipuncture Draw Fee 10:13:30 CDT CPT-24701 Venipuncture Draw Fee 08:31:43 [employer] CPT-JTINJ Joint Injection 18:34:50 CDT CPT-42264 Knee 3V 12:25:09 CDT CPT-32280 Venipuncture Draw Fee 12:15:57 CDT CPT-060 Medical Surveillance Exam 21:31:43 CDT 2011 CPT-87531 Venipuncture Draw Fee 08:32:05 [employer] CPT-OV Office Visit 18:19:06 CDT
--- OUTSIDE RECORDS SUMMARY | 2020-01-18 13:17 | XMS REPORT | Clinical Summary ---
Author Author Admin, Mitch Leon Organization [facility] Address Unknown Phone Unavailable Allergies, [...] Seroma complicating a procedure HYPERLIPIDEMIA 272.4 Active eRnan Hays MD Other and unspecified hyperlipidemia DIABETES, [...] of vessel, afognak or graft EDEMA 782.3 Active Mitch Urbina [...] 1 tablet by mouth daily AMLODIPINE BESYLATE 86620862802 Active Mitch Urbina DO Active MECLIZINE HCL 25 MG TAB 1 po tid 3 days, then 1/2 tab tid 3 days MECLIZINE HCL 99506105764 No Longer Active Corey SEGURA Active ALLOPURINOL 300 MG TABS Take 1 tablet by mouth daily 2 ALLOPURINOL 24816528248 No Longer Active Corey SEGURA Activ e CLONIDINE HCL 0.1 MG TABS 1 po bid 7 days, then 1/2 tab po b id 7 days CLONIDINE HCL 70373371152 No Longer Active Corey SEGURA Active COUMADIN 5 MG TABS 1 tab PO daily WARFARIN SODIUM 78460336165 Active Mitch Urbina DO Active COUMADIN 4 MG TABS 1 tablet daily WARFARIN SODI UM 09948445790 No Longer Active Corey SEGURA Active POLYTRIM 73161-8.1 UNIT/ML-% SOLN 1 drop in affected e ye every 3 hours while awake x 7 days POLYMYXIN B-TRIMETHOPRIM 84433463740 N o Longer Active Corey SEGURA Active LOSARTAN POTASSIUM-HCTZ 100-12.5 MG TABS 1 by mouth da rocky for high blood pressure LOSARTAN POTASSIUM-HCTZ 97071777307 Active Stephy Urbina DO Active LISINOPRIL-HYDROCHLOROTHIAZIDE 20-12.5 MG TABS 1 tab by mouth da rocky LISINOPRIL-HYDROCHLOROTHIAZIDE 35279756348 No Longer Active Mitch luis DO Active LISINOPRIL 20 MG TABS 1 tab po at HS LISINOPRIL 66541275506 No Longer Active Mitch Urbina DO Active COUMADIN 5 MG TABS 1 by mouth every other day WARFARIN SODIUM 76549151408 No Longer Active Mitch Urbina DO Active COUMADIN 6 MG TABS 1 by mouth every other day WARFARIN SODIUM 35716124809 No Longer Active Mitch Urbina DO Active COLCRYS 0.6 MG TABS 1 tab qid prn gout COLCHICINE 06228750231 Active Mitch Urbina DO Active SIMVASTATIN 40 MG TABS 1 tab daily at bedtime S IMVASTATIN 68446751787 Active Mitch Urbina DO Active SIMVASTATIN 20 MG TABS 1 tab daily at bedtime S IMVASTATIN 50226485080 No Longer Active Mitch Urbina DO Active LOVENOX 100 MG/ML SC SOLN One injection twice a day 09/15/15 ENOXAPARIN SODIUM 91550845445 No Longer Active Carmine Navarrete ctive JANUVIA 50 MG TABS Take one by mouth daily DIEGO GLIPTIN PHOSPHATE 90218248145 Active Mitch Urbina DO Active JANUVIA 100 MG TABS 1/2 by mouth every day DIEGO GLIPTIN PHOSPHATE 97968855741 No Longer Active Bijal Philipp RN Active METFORMIN HCL 500 MG TABS 2 by mouth twice daily METFORMIN HCL 31877789924 Active Mitch Urbina DO Active GLIMEPIRIDE 4 MG TABS 1 tab po bid GLIMEPIRIDE 252310 56018 Active Mitch Urbina DO Active COLCRYS 0.6 MG TABS 1 po q 6 hours prn gout pain 03/02 COLCHICINE 77485223679 No Longer Active Camila Reese Active LISINOPRIL 5 MG TABS 1 by mouth every day LISIN OPRIL 04183935824 No Longer Active Nguyen Perez Active KLOR-CON 20 MEQ PACK Take one by mouth daily 8 POTASSIUM CHLORIDE 78127473881 No Longer Active Nguyen Perez Active FUROSEMIDE 40 MG TABS 1 by mouth daily FUROSEMI DE 31262346666 No Longer Active Nguyen Perez Active PROVIGIL 200 MG TABS 1/2 tab po q day MODAFINIL 92137 083908 Active Mitch Urbina DO Active PROVIGIL 100 MG TABS Take one by mouth daily MO DAFINIL 98054998868 No Longer Active Mitch Urbina DO Active BACTRIM DS 800-160 MG TAB 1 tab by mouth twice daily 2 TRIMETHOPRIM-SULFAMETHOXAZOLE 96859216748 No Longer Active Renan Hays MD Active FAMOTIDINE 20 MG TABS by mouth twice a day FAMOTI DINE 55991755077 Active Mitch Urbina DO Active ADULT ASPIRIN LOW STRENGTH 81 MG TBDP 1 by mouth every daily ASPIRIN 68258267777 Active Mitch Urbina DO Active METOPROLOL TARTRATE 50 MG TABS 1 by mouth twice daily METOPROLOL TARTRATE 34206205957 Active Mitch W Carlitos DO Active BACTRIM DS 800-160 MG TAB 1 tab by mouth twice daily 2 BACTRIM DS 800-160 MG TAB TRIMETHOPRIM-SULFAMETHOXAZOLE Inac tive PROVIGIL 100 MG TABS Take one by mouth daily 4 PROVIGIL 100 MG TABS 593041 MODAFINIL Inactive FUROSEMIDE 40 MG TABS 1 by mouth daily FU ROSEMIDE 40 MG TABS 567143 FUROSEMIDE Inactive KLOR-CON 20 MEQ PACK Take one by mouth daily 8 KLOR-CON 20 MEQ PACK 829100 POTASSIUM CHLORIDE Inactive LISINOPRIL 5 MG TABS 1 by mouth every day LISINOPRIL 5 MG TABS 273713 LISINOPRIL Inactive COLCRYS 0.6 MG TABS 1 po q 6 hours prn gout pain 03/02 COLCRYS 0.6 MG TABS COLCHICINE Inactive JANUVIA 100 MG TABS 1/2 by mouth every day JANUVI A 100 MG TABS SITAGLIPTIN PHOSPHATE Inactive SIMVASTATIN 20 MG TABS 1 tab daily at bedtime SIMVASTATIN 20 MG TABS 761334 SIMVASTATIN Inactive COUMADIN 6 MG TABS 1 by mouth every other day COUMADIN 6 MG TABS 576674 WARFARIN SODIUM Inactive COUMADIN 5 MG TABS 1 by mouth every other day COUMADIN 5 MG TABS 512276 WARFARIN SODIUM Inactive LISINOPRIL 20 MG TABS 1 tab po at HS KOKI NOPRIL 20 MG TABS 900477 LISINOPRIL Inactive LISINOPRIL-HYDROCHLOROTHIAZIDE 20-12.5 MG TABS 1 tab by mouth da rocky LISINOPRIL-HYDROCHLOROTHIAZIDE 20-12.5 MG TABS 135795 LISINOPRIL-HYDROCHLOROTHIAZIDE Inactive POLYTRIM 15088-4.1 UNIT/ML-% SOLN 1 drop in affected e ye every 3 hours while awake x 7 days POLYTRIM 71623-7.1 UNIT/ML-% SOLN 23091 7 POLYMYXIN B-TRIMETHOPRIM Inactive COUMADIN 4 MG TABS 1 tablet daily COUMADIN 4 MG TABS 765225 WARFARIN SODIUM Inactive CLONIDINE HCL 0.1 MG TABS 1 po bid 7 days, then 1/2 tab po b id 7 days CLONIDINE HCL 0.1 MG TABS 439637 CLONIDINE HCL I nactive ALLOPURINOL 300 MG TABS Take 1 tablet by mouth daily 2 ALLOPURINOL 300 MG TABS 487530 ALLOPURINOL Inactive MECLIZINE HCL 25 MG TAB 1 po tid 3 days, then 1/2 tab tid 3 days MECLIZINE HCL 25 MG TAB 492859 MECLIZINE HCL Inactive LOVENOX 100 MG/ML SC SOLN One injection twice a day 09/15/15 LOVENOX 100 MG/ML SC SOLN 050998 ENOXAPARIN SODIUM Inactive Vital Signs Date Name [...] Acid - Chemistry sodium, serum 136 mmol/L 642-266 2528/07/25 potassium, serum 4.6 mmol/L 3.5-5.2 chloride, serum [...] dioxide, venous blood 33.0 mmol/L 21.0-32 .0 urea nitrogen, blood 28 mg/dL 7-18 creatinine, serum 1.30 mg/dL 0.60-1.30 alanine aminotransferase (SGPT), serum 38 U/L 12-78 aspartate aminotransferase (SGOT), serum 34 U/L 15-37 calcium, serum 10.4 mg/dL 8.5-10.1 bilirubin, serum, total 0.90 mg/dL 0.00-1.00 hemoglobin A1C, blood, as % of total hemoglobin 8.0 % 4.3-6.0 cholesterol, serum 130 mg/dL 664-975 9993/11/14 triglyceride, serum, fasting 288 mg/dL 30-200 HDL cholesterol, serum 33 mg/dL 32-96 LDL cholesterol, serum 39 mg/dL 0-130 blood glucose 181 mg/dL 65-110 sodium, serum 137 mmol/L 513-658 1952/11/14 potassium, serum 4.4 mmol/L 3.5-5.2 chloride, serum 100 mmol/L 98-107 Lab Report: Comp. Metabolic Panel, HGBA1 C, Lipid Panel, Prothrombin Time - Chemistry sodium, serum 136 mmol/L 072-005 3244/12/02 calcium, serum 10.3 mg/dL 8.5-10.1 bilirubin, serum, total 0.60 mg/dL 0.00-1.00 hemoglobin A1C, blood, as % of total hemoglobin 7.6 % 4.3-6.0 cholesterol, serum 117 mg/dL 292-467 0084/12/02 triglyceride, serum, fasting 226 mg/dL 30-200 HDL [...] 1.0-3.5 international normalized ratio (INR) 2.2 1.0-3.5 international normalized ratio (INR) 2.2 1.0-3.5 prothrombin time (patient) 18.6 SECS s 11.1-13.4 prothrombin time (patient) 18.4 SECS s 11.1-13.4 prothrombin time (patient) 18.4 SECS s 11.1-13.4 international normalized ratio (INR) 2.2 1.0-3.5 prothrombin time (patient) 16.0 SECS s 11.1-13.4 international normalized ratio (INR) 1.7 1.0-3.5 Encounters Code Encounter Date Provider Facility CPT-83920 Level 3 Est. Patient 17:01:00 ABSTRACT CHECKER Mitch luis DO [facility] CPT-33969 Level 3 Est. Patient 13:53:19 ABSTRACT CHECKER Mitch Ambrose L janelle DO [facility] CPT-53883 Level 3 Est. Patient 19:19:37 ABSTRACT CHECKER Mitch W L janelle [facility] CPT-68457 Level 3 Est. Patient 13:25:53 ABSTRACT CHECKER Tavo toure MD [facility] [place][note 2]-13228 Level 3 Est. Patient 18:17:28 CDT Mitch Ambrose L janelle [facility] CPT-62594 Level 3 Est. Patient 15:22:57 CDT Mitch Arnol L janelle [facility] CPT-61340 Level 3 Est. Patient 18:21:50 CDT Mitch W L janelle [facility]-83421 Level 3 Est. Patient 18:20:38 CDT Mitch Arnol L janelle [facility] CPT-82010 Level 3 Est. Patient 15:37:55 CDT Mitch Arnol L janelle [facility] CPT-80791 Level 2 Est. Patient 15:54:44 CDT Carmine benton MD [facility]-93288 Level 3 Est. Patient 21:46:01 ABSTRACT CHECKER Mitch luis [facility] CPT-29205 Level 3 Est. Patient 22:15:50 CDT Mitch W L janelle [facility] CPT-07344 Level 3 Est. Patient 10:48:15 CDT Mitch Ambrose L janelle [facility] CPT-49394 Level 3 Est. Patient 23:20:57 CDT Tavo toure MD [facility] CPT-85894 Level 3 Est. Patient 16:26:13 CDT Mitch luis DO [facility] Procedures Code Procedure Name Date Entry Date Standard Desc ription CPT-77065 Venipuncture Draw Fee 10:13:28 ABSTRACT CHECKER CPT-86121 Venipuncture Draw Fee 08:31:11 CDT CPT-46057 Aspir/Inject Med Joint 18:17:28 CDT CPT-16862 Venipuncture Draw Fee 10:13:30 CDT CPT-93192 Venipuncture Draw Fee 08:31:43 ABSTRACT CHECKER CPT-JTINJ Joint Injection 18:34:50 CDT CPT-92482 Knee 3V 12:25:09 CDT CPT-71659 Venipuncture Draw Fee 12:15:57 CDT CPT-060 Medical Surveillance Exam 21:31:43 CDT 2011 CPT-20866 Venipuncture Draw Fee 08:32:05 ABSTRACT CHECKER CPT-OV Office Visit 18:19:06 CDT
--- OUTSIDE RECORDS SUMMARY | 2020-01-18 13:18 | XMS REPORT | Clinical Summary ---
Author Author Admin, Mitch Leon Organization [facility] Address Unknown Phone Unavailable Allergies, Adverse Reactions, [...] Coronary atherosclerosis of unspecified type of vessel, [place] or graft EDEMA 782.3 Resolved Mitch Urbina [...] tab to equal 7mg daily WARFARIN SODIUM 28026108492 Active Norma Sage Active COLCRYS 0.6 MG TABS 1 tab qid prn gout COLCHICINE 00111308737 Active Norma Sage Active INVOKANA 100 MG ORAL TABS 1 tablet orally daily CANAGLIFLOZIN 12661280435 Active Mitch Urbina DO Active MINOXIDIL 2.5 MG TABS 1 tablet daily for high blood pressure 10/23 MINOXIDIL 07289633042 Active Domi Rivera MA Active AMLODIPINE BESYLATE 5 MG TABS 1 tablet by mouth daily AMLODIPINE BESYLATE 37450463820 Active Mitch Urbina DO Active MECLIZINE HCL 25 MG TAB 1 po tid 3 days, then 1/2 tab tid 3 days MECLIZINE HCL 36846474624 No Longer Active Corey SEGURA Active ALLOPURINOL 300 MG TABS Take 1 tablet by mouth daily 2 ALLOPURINOL 27035078022 No Longer Active Corey SEGURA Activ e CLONIDINE HCL 0.1 MG TABS 1 po bid 7 days, then 1/2 tab po b id 7 days CLONIDINE HCL 03114390504 No Longer Active Corey SEGURA Active COUMADIN 5 MG TABS 1 tab PO daily WARFARIN SODIUM 94302104826 Active Mitch Urbina DO Active COUMADIN 4 MG TABS 1 tablet daily WARFARIN SODI UM 44833945961 No Longer Active oCrey SEGURA Active POLYTRIM 77092-3.1 UNIT/ML-% SOLN 1 drop in affected e ye every 3 hours while awake x 7 days POLYMYXIN B-TRIMETHOPRIM 10796746624 N o Longer Active Corey SEGURA Active LOSARTAN POTASSIUM-HCTZ 100-12.5 MG TABS 1 by mouth da rocky for high blood pressure LOSARTAN POTASSIUM-HCTZ 12989673127 Active Stephy Urbina DO Active LISINOPRIL-HYDROCHLOROTHIAZIDE 20-12.5 MG TABS 1 tab by mouth da rocky LISINOPRIL-HYDROCHLOROTHIAZIDE 06123186504 No Longer Active Mitch luis DO Active LISINOPRIL 20 MG TABS 1 tab po at HS LISINOPRIL 74438147479 No Longer Active Mitch Urbina DO Active COUMADIN 5 MG TABS 1 by mouth every other day WARFARIN SODIUM 17320314494 No Longer Active Mitch Urbina DO Active COUMADIN 6 MG TABS 1 by mouth every other day WARFARIN SODIUM 76727835648 No Longer Active Mitch W Carlitos DO Active SIMVASTATIN 40 MG TABS 1 tab daily at bedtime S IMVASTATIN 67889079355 Active Mitch Urbina DO Active SIMVASTATIN 20 MG TABS 1 tab daily at bedtime S IMVASTATIN 82479127662 No Longer Active Mitch Urbina DO Active LOVENOX 100 MG/ML SC SOLN One injection twice a day 09/15/15 ENOXAPARIN SODIUM 68126866153 No Longer Active Carmine Navarrete ctive JANUVIA 50 MG TABS Take one by mouth daily DIEGO GLIPTIN PHOSPHATE 73305970455 Active Mitch Urbina DO Active JANUVIA 100 MG TABS 1/2 by mouth every day DIEGO GLIPTIN PHOSPHATE 30610801258 No Longer Active Bijal Segal RN Active METFORMIN HCL 500 MG TABS 2 by mouth twice daily METFORMIN HCL 53698723247 Active Mitch Urbina DO Active GLIMEPIRIDE 4 MG TABS 1 tab po bid GLIMEPIRIDE 166774 82213 Active Mitch Urbina DO Active COLCRYS 0.6 MG TABS 1 po q 6 hours prn gout pain 03/02 COLCHICINE 05112899775 No Longer Active Camila Reese Active LISINOPRIL 5 MG TABS 1 by mouth every day LISIN OPRIL 06764332196 No Longer Active Nguyenmolly Perez Active KLOR-CON 20 MEQ PACK Take one by mouth daily 8 POTASSIUM CHLORIDE 67791478489 No Longer Active Nguyen Ana Active FUROSEMIDE 40 MG TABS 1 by mouth daily FUROSEMI DE 26682790719 No Longer Active Nguyen Ana Active PROVIGIL 200 MG TABS 1/2 tab po q day MODAFINIL 87341 363440 Active Kathie Juan RPT,RMA Active PROVIGIL 100 MG TABS Take one by mouth daily MO DAFINIL 77950142034 No Longer Active Mitch Urbina DO Active BACTRIM DS 800-160 MG TAB 1 tab by mouth twice daily 2 TRIMETHOPRIM-SULFAMETHOXAZOLE 22291440121 No Longer Active Renan Hays MD Active FAMOTIDINE 20 MG TABS by mouth twice a day FAMOTI ZULEIKA 76144617075 Active Mitch Arnol Urbina DO Active ADULT ASPIRIN LOW STRENGTH 81 MG TBDP 1 by mouth every daily ASPIRIN 77779759590 Active Mitch Urbina DO Active METOPROLOL TARTRATE 50 MG TABS 1 by mouth twice daily METOPROLOL TARTRATE 46960325213 Active Mtich Arnol Urbina DO Active BACTRIM DS 800-160 MG TAB 1 tab by mouth twice daily 2 BACTRIM DS 800-160 MG TAB 591097 TRIMETHOPRIM-SULFAMETHOXAZOLE Inac tive PROVIGIL 100 MG TABS Take one by mouth daily 4 PROVIGIL 100 MG TABS 965347 MODAFINIL Inactive FUROSEMIDE 40 MG TABS 1 by mouth daily FU ROSEMIDE 40 MG TABS 816248 FUROSEMIDE Inactive KLOR-CON 20 MEQ PACK Take one by mouth daily 8 KLOR-CON 20 MEQ PACK 009939 POTASSIUM CHLORIDE Inactive LISINOPRIL 5 MG TABS 1 by mouth every day LISINOPRIL 5 MG TABS 084448 LISINOPRIL Inactive COLCRYS 0.6 MG TABS 1 po q 6 hours prn gout pain 03/02 COLCRYS 0.6 MG TABS 429816 COLCHICINE Inactive JANUVIA 100 MG TABS 1/2 by mouth every day JANUVI A 100 MG TABS SITAGLIPTIN PHOSPHATE Inactive SIMVASTATIN 20 MG TABS 1 tab daily at bedtime SIMVASTATIN 20 MG TABS 400732 SIMVASTATIN Inactive COUMADIN 6 MG TABS 1 by mouth every other day COUMADIN 6 MG TABS 890672 WARFARIN SODIUM Inactive COUMADIN 5 MG TABS 1 by mouth every other day COUMADIN 5 MG TABS 272804 WARFARIN SODIUM Inactive LISINOPRIL 20 MG TABS 1 tab po at HS KOKI NOPRIL 20 MG TABS 518915 LISINOPRIL Inactive LISINOPRIL-HYDROCHLOROTHIAZIDE 20-12.5 MG TABS 1 tab by mouth da rocky LISINOPRIL-HYDROCHLOROTHIAZIDE 20-12.5 MG TABS 480016 LISINOPRIL-HYDROCHLOROTHIAZIDE Inactive POLYTRIM 68146-1.1 UNIT/ML-% SOLN 1 drop in affected e ye every 3 hours while awake x 7 days POLYTRIM 12438-0.1 UNIT/ML-% SOLN 84814 7 POLYMYXIN B-TRIMETHOPRIM Inactive COUMADIN 4 MG TABS 1 tablet daily COUMADIN 4 MG TABS 259963 WARFARIN SODIUM Inactive CLONIDINE HCL 0.1 MG TABS 1 po bid 7 days, then 1/2 tab po b id 7 days CLONIDINE HCL 0.1 MG TABS 085238 CLONIDINE HCL I nactive ALLOPURINOL 300 MG TABS Take 1 tablet by mouth daily 2 ALLOPURINOL 300 MG TABS 836248 ALLOPURINOL Inactive MECLIZINE HCL 25 MG TAB 1 po tid 3 days, then 1/2 tab tid 3 days MECLIZINE HCL 25 MG TAB 439839 MECLIZINE HCL Inactive LOVENOX 100 MG/ML SC SOLN One injection twice a day 09/15/15 LOVENOX 100 MG/ML SC SOLN 073311 ENOXAPARIN SODIUM Inactive Vital Signs Date Name [...] Range Description Chart Maintenance: [facility] [place] [facility] - Chemistry occult blood, stool (E&M) [...] - Chem istry sodium, serum 136 mmol/L 277-824 9381/01/14 carbon dioxide, venous blood 25.4 mmol/L 21.0-32 [...] CBC - Chemistry cholesterol, serum 136 mg/dL 229-992 3830/08/09 triglyceride, serum, fasting 187 mg/dL 30-200 HDL [...] 1.0-3.5 Encounters Code Encounter Date Provider Facility CPT-96538 Level 3 Est. Patient 14:21:06 CDT Mitch luis [facility] CPT-68285 Level 3 Est. Patient 14:52:06 [facility] 3 Est. Patient 09:34:30 CMM TECHNICIAN Mitch luis [facility] CPT-48275 Level 3 Est. Patient 09:37:15 CDT Mitch luis [facility] CPT-37387 Level 3 Est. Patient 17:01:00 CMM TECHNICIAN Mitch luis [facility] CPT-78579 Level 3 Est. Patient 13:53:19 CMM TECHNICIAN Mitch luis [facility] CPT-76582 Level 3 Est. Patient 19:19:37 CMM TECHNICIAN Mitch luis [facility] CPT-25699 Level 3 Est. Patient 13:25:53 CMM TECHNICIAN Tavo toure MD [facility] CPT-18715 Level 3 Est. Patient 18:17:28 CDT Mitch luis [facility] CPT-00012 Level 3 Est. Patient 15:22:57 CDT Mitch luis [facility] CPT-18321 Level 3 Est. Patient 18:21:50 CDT Mitch luis [facility] CPT-84379 Level 3 Est. Patient 18:20:38 CDT Mitch luis [facility] CPT-35234 Level 3 Est. Patient 15:37:55 CDT Mitch luis [facility] CPT-09120 Level 2 Est. Patient 15:54:44 CDT Carmine benton MD [facility] CPT-82958 Level 3 Est. Patient 21:46:01 CMM TECHNICIAN Mitch luis [facility] CPT-03154 Level 3 Est. Patient 22:15:50 CDT Mitch Arnol luis [facility] CPT-45321 Level 3 Est. Patient 10:48:15 CDT Mitch luis [facility] CPT-89775 Level 3 Est. Patient 23:20:57 CDT Tavo toure MD [facility] CPT-11545 Level 3 Est. Patient 16:26:13 CDT Mitch Arnol [facility] Procedures Code Procedure Name Date Entry Date Standard Desc ription CPT-50390 PT/INR - LAB USE ONLY 09:22:03 CMM TECHNICIAN CPT-52963 Venipuncture Draw Fee 09:22:02 CMM TECHNICIAN CPT-10759 Hemoccult IFOBT - LAB USE ONLY 10:27:22 CDT CPT-87986 Venipuncture Draw Fee 08:27:08 CDT CPT-54640 Liver Profile - LAB USE ONLY 08:27:07 CDT 2 CPT-20656 Microalbumin - LAB USE ONLY 08:27:07 CDT 20 25/05/09 CPT-68778 PT/INR - LAB USE ONLY 08:27:07 CDT CPT-14089 HGBA1C - LAB USE ONLY 08:27:07 CDT CPT-11377 CBC - LAB USE ONLY 08:27:07 CDT CPT-46872 Venipuncture Draw Fee 11:09:14 CDT CPT-05981 Venipuncture Draw Fee 08:32:21 CMM TECHNICIAN CPT-31634 Venipuncture Draw Fee 09:38:56 CMM TECHNICIAN CPT-76552 No Charge Offi Visit 21:36:07 CDT 1 CPT-88284 Venipuncture Draw Fee 10:13:28 CMM TECHNICIAN CPT-45845 Venipuncture Draw Fee 08:31:11 CDT CPT-47096 Aspir/Inject Med Joint 18:17:28 CDT CPT-24828 Venipuncture Draw Fee 10:13:30 CDT CPT-46255 Venipuncture Draw Fee 08:31:43 CMM TECHNICIAN CPT-JTINJ Joint Injection 18:34:50 CDT CPT-62410 Knee 3V 12:25:09 CDT CPT-76724 Venipuncture Draw Fee 12:15:57 CDT CPT-060 Medical Surveillance Exam 21:31:43 CDT 2011 CPT-78661 Venipuncture Draw Fee 08:32:05 CMM TECHNICIAN CPT-OV Office Visit 18:19:06 CDT
--- OUTSIDE RECORDS SUMMARY | 2020-01-18 13:18 | XMS REPORT | Clinical Summary ---
Author Author Admin, Mitch Leon Organization [facility] [employer] Address Unknown Phone Unavailable Allergies, Adverse Reactions, [...] Coronary atherosclerosis of unspecified type of vessel, tanana or graft EDEMA 782.3 Resolved Mitch Urbina [...] LONG-TERM (CURRENT) USE OF ANTICOAGULANTS ICD-V58.61 Inactive Micth Urbina DO EDEMA ICD-782.3 Inactive Mitch Urbina [...] ORAL TABLET 1 po BID GLIMEPIRID E 42997597392 Active Renee Oconnor LPN Active KEFLEX 500 MG ORAL CAPSULE 1 po qid CEPHALEXI N 75946765188 No Longer Active Mitch Urbina DO Active LOSARTAN POTASSIUM 100 MG ORAL TABLET 1 pill by mouth daily, for blood pressure LOSARTAN POTASSIUM 66612673196 Active Ana Wallace Active AMLODIPINE BESYLATE 5 MG ORAL TABLET 1 tablet by mouth daily 201 01/20/04 AMLODIPINE BESYLATE 40526769112 No Longer Active Joe fulton APRN Active MITIGARE 0.6 MG ORAL CAPSULE 2 capsules at onset of go ut pain, then take one capsule at 1 hour if symptoms persist. COLCHICINE 59 939044872 Active Mitch Urbina DO Active COUMADIN 1 MG ORAL TABLET 2 tabs orally daily with the 5mg tab to equal 7mg daily WARFARIN SODIUM 44151872916 Active Ana Wallace Active COLCRYS 0.6 MG ORAL TABLET 1 tab qid prn gout C OLCHICINE 67038196471 Active Norma Cazares Active INVOKANA 100 MG ORAL TABLET 1 tablet orally daily CANAGLIFLOZIN 71217847287 Active Mitch Urbina DO Active MINOXIDIL 2.5 MG ORAL TABLET 1 tablet daily for high blood press ure MINOXIDIL 74627435087 Active Mitch Urbina DO Active MECLIZINE HCL 25 MG ORAL TABLET 1 po tid 3 days, then 1/2 ta b tid 3 days MECLIZINE HCL 17697831634 No Longer Active Corey SEGURA Active ALLOPURINOL 300 MG ORAL TABLET Take 1 tablet by mouth daily 2012 ALLOPURINOL 92724576737 No Longer Active Corey SEGURA Active CLONIDINE HCL 0.1 MG ORAL TABLET 1 po bid 7 days, then 1/2 t ab po bid 7 days CLONIDINE HCL 56073375943 No Longer Active Corey SEGURA Active COUMADIN 5 MG ORAL TABLET 1 tab PO daily WARFAR IN SODIUM 41092115171 Active Mitch Urbina DO Active COUMADIN 4 MG ORAL TABLET 1 tablet daily WARFAR IN SODIUM 45300925091 No Longer Active Corey SEGURA Active POLYTRIM 61933-8.1 UNIT/ML-% OPHTHALMIC SOLUTION 1 rui p in affected eye every 3 hours while awake x 7 days POLYMYXIN B-TRIMETHOP RIM 95411772113 No Longer Active Corey SEGURA Active LOSARTAN POTASSIUM-HCTZ 100-12.5 MG ORAL TABLET 1 by m outh daily for high blood pressure LOSARTAN POTASSIUM-HCTZ 84352423480 No Longer A ctive Mitch Urbina DO Active LISINOPRIL-HYDROCHLOROTHIAZIDE 20-12.5 MG ORAL TABLET 1 tab by m outh daily LISINOPRIL-HYDROCHLOROTHIAZIDE 67957949665 No Longer Active Mitch Urbina DO Active LISINOPRIL 20 MG ORAL TABLET 1 tab po at HS LIS INOPRIL 06191980113 No Longer Active Mitch Urbina DO Active COUMADIN 5 MG ORAL TABLET 1 by mouth every other day 2 WARFARIN SODIUM 82032079872 No Longer Active Mitch Urbina DO Active COUMADIN 6 MG ORAL TABLET 1 by mouth every other day 2 WARFARIN SODIUM 45272828847 No Longer Active Mitch Urbina DO Active SIMVASTATIN 40 MG ORAL TABLET 1 tab daily at bedtime SIMVASTATIN 73837509814 Active Mitch Urbina DO Active SIMVASTATIN 20 MG ORAL TABLET 1 tab daily at bedtime 2 SIMVASTATIN 16369216500 No Longer Active Mitch Urbina DO Active LOVENOX 100 MG/ML SUBCUTANEOUS SOLUTION One injection twice a da y ENOXAPARIN SODIUM 35016352922 No Longer Active Carmine Yusuf MD Active JANUVIA 50 MG ORAL TABLET Take one by mouth daily SITAGLIPTIN PHOSPHATE 65281834058 Active Mitch Urbina DO Active JANUVIA 100 MG ORAL TABLET 1/2 by mouth every day 2011 SITAGLIPTIN PHOSPHATE 74651669565 No Longer Active Bijal Segal RN Acti ve METFORMIN HCL 500 MG ORAL TABLET 2 by mouth twice daily METFORMIN HCL 53136908966 Active Mitch Urbina DO Active COLCRYS 0.6 MG ORAL TABLET 1 po q 6 hours prn gout pain COLCHICINE 54763788435 No Longer Active Camila Reese Active LISINOPRIL 5 MG ORAL TABLET 1 by mouth every day 11/17 LISINOPRIL 57516931220 No Longer Active Nguyen Coekman Active KLOR-CON 20 MEQ ORAL PACKET Take one by mouth daily 09/10/08 POTASSIUM CHLORIDE 34687725726 No Longer Active Nguyen Coekman Active FUROSEMIDE 40 MG ORAL TABLET 1 by mouth daily F UROSEMIDE 24552104291 No Longer Active Nguyen Coekman Active PROVIGIL 200 MG ORAL TABLET 1/2 tab po q day MODA FINIL 82679465357 Active Renee Oconnor COVER SEAMER Active PROVIGIL 100 MG ORAL TABLET Take one by mouth daily 08/20/04 MODAFINIL 08549116768 No Longer Active Mitch Urbina DO Active BACTRIM DS 800-160 MG ORAL TABLET 1 tab by mouth twice daily 201 10/19/09 TRIMETHOPRIM-SULFAMETHOXAZOLE 95590207416 No Longer Active Elian Hays MD Active FAMOTIDINE 20 MG ORAL TABLET by mouth twice a day FAMOTIDINE 85824540647 Active Mitch Urbina DO Active ADULT ASPIRIN LOW STRENGTH 81 MG ORAL TABLET DISINTEGR ATING 1 by mouth every daily ASPIRIN 96977163087 Active Mitch Urbina DO Ac tive METOPROLOL TARTRATE 50 MG ORAL TABLET 1 by mouth twice daily METOPROLOL TARTRATE 28010124237 Active Mitch Urbina DO Active BACTRIM DS 800-160 MG ORAL TABLET 1 tab by mouth twice daily 201 10/19/09 BACTRIM DS 800-160 MG ORAL TABLET 051889 TRIMETHOPRIM-SULFAMETHOXAZOLE Inactive PROVIGIL 100 MG ORAL TABLET Take one by mouth daily 08/20/04 PROVIGIL 100 MG ORAL TABLET 656244 MODAFINIL Inactive FUROSEMIDE 40 MG ORAL TABLET 1 by mouth daily FUROSEMIDE 40 MG ORAL TABLET 465888 FUROSEMIDE Inactive KLOR-CON 20 MEQ ORAL PACKET Take one by mouth daily 09/10/08 KLOR- CON 20 MEQ ORAL PACKET 4893741 POTASSIUM CHLORIDE Inactive LISINOPRIL 5 MG ORAL TABLET 1 by mouth every day 11/17 LISINOPRIL 5 MG ORAL TABLET 270336 LISINOPRIL Inactive COLCRYS 0.6 MG ORAL TABLET 1 po q 6 hours prn gout pain COLCRYS 0.6 MG ORAL TABLET 626709 COLCHICINE Inactive JANUVIA 100 MG ORAL TABLET 1/2 by mouth every day 2011 JANUVIA 100 MG ORAL TABLET SITAGLIPTIN PHOSPHATE Inactive SIMVASTATIN 20 MG ORAL TABLET 1 tab daily at bedtime 2 SIMVASTATIN 20 MG ORAL TABLET 695501 SIMVASTATIN Inactive COUMADIN 6 MG ORAL TABLET 1 by mouth every other day 2 COUMADIN 6 MG ORAL TABLET 067649 WARFARIN SODIUM Inactive COUMADIN 5 MG ORAL TABLET 1 by mouth every other day 2 COUMADIN 5 MG ORAL TABLET 435087 WARFARIN SODIUM Inactive LISINOPRIL 20 MG ORAL TABLET 1 tab po at HS LISINOPRIL 20 MG ORAL TABLET 577590 LISINOPRIL Inactive LISINOPRIL-HYDROCHLOROTHIAZIDE 20-12.5 MG ORAL TABLET 1 tab by m outh daily LISINOPRIL-HYDROCHLOROTHIAZIDE 20-12.5 MG ORAL TABLET 807390 LISINOPRIL-HYDROCHLOROTHIAZIDE Inactive POLYTRIM 63282-1.1 UNIT/ML-% OPHTHALMIC SOLUTION 1 rui p in affected eye every 3 hours while awake x 7 days POLYTRIM 1000 0-0.1 UNIT/ML-% OPHTHALMIC SOLUTION 606010 POLYMYXIN B-TRIMETHOPRIM Inactive COUMADIN 4 MG ORAL TABLET 1 tablet daily COUMADIN 4 MG ORAL TABLET 306325 WARFARIN SODIUM Inactive CLONIDINE HCL 0.1 MG ORAL TABLET 1 po bid 7 days, then 1/2 t ab po bid 7 days CLONIDINE HCL 0.1 MG ORAL TABLET 582512 CLONIDIN E HCL Inactive ALLOPURINOL 300 MG ORAL TABLET Take 1 tablet by mouth daily 2012 ALLOPURINOL 300 MG ORAL TABLET 246162 ALLOPURINOL I nactive MECLIZINE HCL 25 MG ORAL TABLET 1 po tid 3 days, then 1/2 ta b tid 3 days MECLIZINE HCL 25 MG ORAL TABLET 132375 MECLIZINE HCL Inactive AMLODIPINE BESYLATE 5 MG ORAL TABLET 1 tablet by mouth daily 201 01/20/04 AMLODIPINE BESYLATE 5 MG ORAL TABLET 504137 AMLODIPINE BESYLATE Inactive KEFLEX 500 MG ORAL CAPSULE 1 po qid K EFLEX 500 MG ORAL CAPSULE 016716 CEPHALEXIN Inactive LOVENOX 100 MG/ML SUBCUTANEOUS SOLUTION One injection twice a da y LOVENOX 100 MG/ML SUBCUTANEOUS SOLUTION 020096 ENOXAPAR IN SODIUM Inactive Vital Signs Date [...] - Chem istry sodium, serum 139 mmol/L 961-512 2138/07/17 potassium, serum 4.2 mmol/L 3.5-5.2 chloride, serum 102 mmol/L 98-107 carbon dioxide, venous blood 28.9 mmol/L 21.0-32 .0 blood glucose 211 mg/dL 65-110 calcium, serum 10.6 mg/dL 8.5-10.1 urea nitrogen, blood 29 mg/dL 7-18 creatinine, serum 1.24 mg/dL 0.60-1.30 sodium, serum 141 mmol/L 695-459 3277/08/07 potassium, serum 4.5 mmol/L 3.5-5.2 chloride, serum [...] ... - Chemistry sodium, serum 144 mmol/L 699-464 3887/06/12 carbon dioxide, venous blood 26.6 mmol/L 21.0-32 [...] HGBA1C - Chemistry cholesterol, serum 136 mg/dL 203-318 7341/12/06 triglyceride, serum, fasting 247 mg/dL 30-200 HDL cholesterol, serum 41 mg/dL 32-60 LDL cholesterol, serum 46 mg/dL 0-130 aspartate aminotransferase (SGOT), serum 22 U/L 15-37 alanine aminotransferase (SGPT), serum 30 U/L 12-78 bilirubin, serum, total 0.80 mg/dL 0.00-1.00 hemoglobin A1C, blood, as % of total hemoglobin 6.4 % 4.3-6.0 Encounters Code Encounter Date Provider Facility CPT-92826 Level 3 Est. Patient 18:25:53 CDT Mitch luis [facility] CPT-44965 Level 3 Est. Patient 19:43:34 CDT Mitch luis [facility] CPT-54847 Level 4 Est. Patient 09:30:18 CDT Mitch luis [facility] CPT-88242 Level 3 Est. Patient 15:10:14 CDT Joe kamara [facility] CPT-76817 Level 3 Est. Patient 15:03:46 CDT Joe kamara [facility] CPT-68711 Level 3 Est. Patient 14:21:06 CDT Mitch luis [facility] CPT-36517 Level 3 Est. Patient 14:52:06 CDT Joe kamara [facility] CPT-95106 Level 3 Est. Patient 09:34:30 [employer] WORKER Mitch luis [facility] CPT-29931 Level 3 Est. Patient 09:37:15 CDT Mitch luis [facility] CPT-52857 Level 3 Est. Patient 17:01:00 [employer]ITION[employer]ORY WORKER Mitch luis [facility] CPT-11766 Level 3 Est. 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 Patient 19:19:37 M[employer]ITIONS FACTORY WORKER Mitch luis [facility] CPT-15332 Level 3 Est. 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 Patient 18:17:28 CDT Mitch luis [facility] CPT-22570 Level 3 Est. Patient 15:22:57 CDT Mitch luis [facility] CPT-15159 Level 3 Est. Patient 18:21:50 CDT Mitch luis [facility] CPT-55812 Level 3 Est. Patient 18:20:38 CDT Mitch luis [facility] CPT-57923 Level 3 Est. Patient 15:37:55 CDT Mitch luis [facility] CPT-94784 Level 2 Est. Patient 15:54:44 CDT Carmine benton MD [facility] CPT-38921 Level 3 Est. Patient 21:46:01 [employer]ORY WORKER Mitch luis [facility] CPT-91069 Level 3 Est. Patient 22:15:50 CDT Mitch luis [facility] CPT-81086 Level 3 Est. Patient 10:48:15 CDT Mitch luis [facility] CPT-69661 Level 3 Est. Patient 23:20:57 CDT Tavo toure MD [facility] CPT-79887 Level 3 Est. Patient 16:26:13 CDT Mitch Arnol Nona janelle [facility] Procedures Code Procedure Name Date Entry Date Standard Desc ription CPT-36384 Venipuncture Draw Fee 09:26:17 CDT CPT-74311 PT/INR - LAB USE ONLY 13:32:49 [employer] WORKER CPT-82114 Venipuncture Draw Fee 13:32:49 [employer]ITIONS [employer]ORY WORKER CPT-66647 PT/INR - LAB USE ONLY 10:34:49 M[employer]ITIONS FA[employer]ORY WORKER CPT-25413 Venipuncture Draw Fee 10:34:48 [employer]ITIONS FA[employer]ORY WORKER CPT-71944 PT/INR - LAB USE ONLY 09:22:03 M[employer]ITIONS FA[employer]ORY WORKER CPT-45124 Venipuncture Draw Fee 09:22:02 [employer]ITIONS FA[employer]ORY WORKER CPT-07722 Hemoccult IFOBT - LAB USE ONLY 10:27:22 CDT CPT-30382 Venipuncture Draw Fee 08:27:08 CDT CPT-79351 Liver Profile - LAB USE ONLY 08:27:07 CDT 2 CPT-06239 Microalbumin - LAB USE ONLY 08:27:07 CDT 20 25/05/09 CPT-45515 PT/INR - LAB USE ONLY 08:27:07 CDT CPT-20417 HGBA1C - LAB USE ONLY 08:27:07 CDT CPT-18812 CBC - LAB USE ONLY 08:27:07 CDT CPT-68900 Venipuncture Draw Fee 11:09:14 CDT CPT-59157 Venipuncture Draw Fee 08:32:21 [employer]ITION[employer]ORY WORKER CPT-57762 Venipuncture Draw Fee 09:38:56 [employer]ORY WORKER CPT-92498 No Charge Offi Visit 21:36:07 CDT 1 CPT-05553 Venipuncture Draw Fee 10:13:28 [employer] FA[employer]ORY WORKER CPT-57517 Venipuncture Draw Fee 08:31:11 CDT CPT-43683 Aspir/Inject Med Joint 18:17:28 CDT CPT-33144 Venipuncture Draw Fee 10:13:30 CDT CPT-10245 Venipuncture Draw Fee 08:31:43 M[employer]ITIONS FA[employer]ORY WORKER CPT-JTINJ Joint Injection 18:34:50 CDT CPT-25622 Knee 3V 12:25:09 CDT CPT-70069 Venipuncture Draw Fee 12:15:57 CDT CPT-060 Medical Surveillance Exam 21:31:43 CDT 2011 CPT-48910 Venipuncture Draw Fee 08:32:05 M[employer]ITIONS [employer]ORY WORKER CPT-OV Office Visit 18:19:06 CDT
--- OUTSIDE RECORDS SUMMARY | 2020-01-18 13:18 | XMS REPORT | Clinical Summary ---
[...] MG ORAL TABS 1 po BID GLIMEPIRIDE 58679 692321 Active Ana Wallace Active KEFLEX 500 MG CAP 1 po qid CEPHALEXIN 389996205 20 No Longer Active Mitch Urbina DO Active LOSARTAN POTASSIUM 100 MG TABS 1 pill by mouth daily, for bl ood pressure LOSARTAN POTASSIUM 06942144073 Active Ana Wallace Active AMLODIPINE BESYLATE 5 MG TABS 1 tablet by mouth daily AMLODIPINE BESYLATE 54664686638 No Longer Active Joe Williamson APRN Active MITIGARE 0.6 MG ORAL CAPS 2 capsules at onset of gout pain, then take one capsule at 1 hour if symptoms persist. COLCHICINE 59 691276946 Active Mitch Urbina DO Active COUMADIN 1 MG TAB 2 tabs orally daily with the 5mg tab to equal 7mg daily WARFARIN SODIUM 27228394989 Active Ana Wallace Active COLCRYS 0.6 MG TABS 1 tab qid prn gout COLCHICINE 74151102622 Active Norma Cazares Active INVOKANA 100 MG ORAL TABS 1 tablet orally daily CANAGLIFLOZIN 76909694715 Active Mitch Urbina DO Active MINOXIDIL 2.5 MG TABS 1 tablet daily for high blood pressure 10/23 MINOXIDIL 51441020939 Active Mitch Urbina DO Active MECLIZINE HCL 25 MG TAB 1 po tid 3 days, then 1/2 tab tid 3 days MECLIZINE HCL 52230161588 No Longer Active Corey SEGURA Active ALLOPURINOL 300 MG TABS Take 1 tablet by mouth daily 2 ALLOPURINOL 65958763119 No Longer Active Corey SEGURA Activ e CLONIDINE HCL 0.1 MG TABS 1 po bid 7 days, then 1/2 tab po b id 7 days CLONIDINE HCL 97363601452 No Longer Active Corey SEGURA Active COUMADIN 5 MG TABS 1 tab PO daily WARFARIN SODIUM 55402295838 Active Mitch Urbina DO Active COUMADIN 4 MG TABS 1 tablet daily WARFARIN SODI UM 74066976796 No Longer Active Corey SEGURA Active POLYTRIM 61292-6.1 UNIT/ML-% SOLN 1 drop in affected e ye every 3 hours while awake x 7 days POLYMYXIN B-TRIMETHOPRIM 64727005630 N o Longer Active Corey SEGURA Active LOSARTAN POTASSIUM-HCTZ 100-12.5 MG TABS 1 by mouth da rocky for high blood pressure LOSARTAN POTASSIUM-HCTZ 56891438129 No Longer A ctive Mitch Urbina DO Active LISINOPRIL-HYDROCHLOROTHIAZIDE 20-12.5 MG TABS 1 tab by mouth da rocky LISINOPRIL-HYDROCHLOROTHIAZIDE 05680647582 No Longer Active Mitch luis DO Active LISINOPRIL 20 MG TABS 1 tab po at HS LISINOPRIL 79986671780 No Longer Active Mitch Urbina DO Active COUMADIN 5 MG TABS 1 by mouth every other day WARFARIN SODIUM 37771421112 No Longer Active Mitch Urbina DO Active COUMADIN 6 MG TABS 1 by mouth every other day WARFARIN SODIUM 68001583925 No Longer Active Mitch Urbina DO Active SIMVASTATIN 40 MG TABS 1 tab daily at bedtime S IMVASTATIN 39384857532 Active Mitch Urbina DO Active SIMVASTATIN 20 MG TABS 1 tab daily at bedtime S IMVASTATIN 18795826844 No Longer Active Mitch Urbina DO Active LOVENOX 100 MG/ML SC SOLN One injection twice a day 09/15/15 ENOXAPARIN SODIUM 89852780424 No Longer Active Carmine Yusuf MD A ctive JANUVIA 50 MG TABS Take one by mouth daily DIEGO GLIPTIN PHOSPHATE 28436388772 Active Mitch Urbina DO Active JANUVIA 100 MG TABS 1/2 by mouth every day DIEGO GLIPTIN PHOSPHATE 83894240462 No Longer Active Bijal Segal RN Active METFORMIN HCL 500 MG TABS 2 by mouth twice daily METFORMIN HCL 55136536423 Active Mitch Urbina DO Active COLCRYS 0.6 MG TABS 1 po q 6 hours prn gout pain 03/02 COLCHICINE 00253969910 No Longer Active Camila Reese Active LISINOPRIL 5 MG TABS 1 by mouth every day LISIN OPRIL 65477068433 No Longer Active Nguyen Perez Active KLOR-CON 20 MEQ PACK Take one by mouth daily 8 POTASSIUM CHLORIDE 52550386264 No Longer Active Nguyen Perez Active FUROSEMIDE 40 MG TABS 1 by mouth daily FUROSEMI DE 74610570665 No Longer Active Nguyen Peerz Active PROVIGIL 200 MG TABS 1/2 tab po q day MODAFINIL 70478 586189 Active Mitch Urbina DO Active PROVIGIL 100 MG TABS Take one by mouth daily MO DAFINIL 28735315909 No Longer Active Mitch Urbina DO Active BACTRIM DS 800-160 MG TAB 1 tab by mouth twice daily 2 TRIMETHOPRIM-SULFAMETHOXAZOLE 89390104780 No Longer Active Renan Hays MD Active FAMOTIDINE 20 MG TABS by mouth twice a day FAMOTI DINE 41874857062 Active Mitch Urbina DO Active ADULT ASPIRIN LOW STRENGTH 81 MG TBDP 1 by mouth every daily ASPIRIN 12553728631 Active Mitch Urbina DO Active METOPROLOL TARTRATE 50 MG TABS 1 by mouth twice daily METOPROLOL TARTRATE 42810087857 Active Mitch Urbina DO Active BACTRIM DS 800-160 MG TAB 1 tab by mouth twice daily 2 BACTRIM DS 800-160 MG TAB 770530 TRIMETHOPRIM-SULFAMETHOXAZOLE Inac tive PROVIGIL 100 MG TABS Take one by mouth daily 4 PROVIGIL 100 MG TABS 583680 MODAFINIL Inactive FUROSEMIDE 40 MG TABS 1 by mouth daily FU ROSEMIDE 40 MG TABS 875197 FUROSEMIDE Inactive KLOR-CON 20 MEQ PACK Take one by mouth daily 8 KLOR-CON 20 MEQ PACK 2884030 POTASSIUM CHLORIDE Inactive LISINOPRIL 5 MG TABS 1 by mouth every day LISINOPRIL 5 MG TABS 245749 LISINOPRIL Inactive COLCRYS 0.6 MG TABS 1 po q 6 hours prn gout pain 03/02 COLCRYS 0.6 MG TABS 608201 COLCHICINE Inactive JANUVIA 100 MG TABS 1/2 by mouth every day JANUVI A 100 MG TABS SITAGLIPTIN PHOSPHATE Inactive SIMVASTATIN 20 MG TABS 1 tab daily at bedtime SIMVASTATIN 20 MG TABS 195863 SIMVASTATIN Inactive COUMADIN 6 MG TABS 1 by mouth every other day COUMADIN 6 MG TABS 706208 WARFARIN SODIUM Inactive COUMADIN 5 MG TABS 1 by mouth every other day COUMADIN 5 MG TABS 964426 WARFARIN SODIUM Inactive LISINOPRIL 20 MG TABS 1 tab po at HS KOKI NOPRIL 20 MG TABS 040750 LISINOPRIL Inactive LISINOPRIL-HYDROCHLOROTHIAZIDE 20-12.5 MG TABS 1 tab by mouth da rocky LISINOPRIL-HYDROCHLOROTHIAZIDE 20-12.5 MG TABS 986704 LISINOPRIL-HYDROCHLOROTHIAZIDE Inactive POLYTRIM 96243-5.1 UNIT/ML-% SOLN 1 drop in affected e ye every 3 hours while awake x 7 days POLYTRIM 35877-4.1 UNIT/ML-% SOLN 53023 7 POLYMYXIN B-TRIMETHOPRIM Inactive COUMADIN 4 MG TABS 1 tablet daily COUMADIN 4 MG TABS 945595 WARFARIN SODIUM Inactive CLONIDINE HCL 0.1 MG TABS 1 po bid 7 days, then 1/2 tab po b id 7 days CLONIDINE HCL 0.1 MG TABS 853914 CLONIDINE HCL I nactive ALLOPURINOL 300 MG TABS Take 1 tablet by mouth daily 2 ALLOPURINOL 300 MG TABS 259394 ALLOPURINOL Inactive MECLIZINE HCL 25 MG TAB 1 po tid 3 days, then 1/2 tab tid 3 days MECLIZINE HCL 25 MG TAB 903249 MECLIZINE HCL Inactive AMLODIPINE BESYLATE 5 MG TABS 1 tablet by mouth daily AMLODIPINE BESYLATE 5 MG TABS 432890 AMLODIPINE BESYLATE Inactive KEFLEX 500 MG CAP 1 po qid KEFLEX 500 MG CAP 30 9114 CEPHALEXIN Inactive LOVENOX 100 MG/ML SC SOLN One injection twice a day 09/15/15 LOVENOX 100 MG/ML SC SOLN 545262 ENOXAPARIN SODIUM Inactive Vital Signs Date Name [...] - Chem istry sodium, serum 139 mmol/L 871-011 4430/07/17 potassium, serum 4.2 mmol/L 3.5-5.2 chloride, serum 102 mmol/L 98-107 carbon dioxide, venous blood 28.9 mmol/L 21.0-32 .0 blood glucose 211 mg/dL 65-110 calcium, serum 10.6 mg/dL 8.5-10.1 urea nitrogen, blood 29 mg/dL 7-18 creatinine, serum 1.24 mg/dL 0.60-1.30 sodium, serum 141 mmol/L 227-220 9853/08/07 potassium, serum 4.5 mmol/L 3.5-5.2 chloride, serum [...] ... - Chemistry sodium, serum 144 mmol/L 637-756 6054/06/12 carbon dioxide, venous blood 26.6 mmol/L 21.0-32 [...] 1.0-3.5 Encounters Code Encounter Date Provider Facility CPT-08225 Level 3 Est. Patient 18:25:53 CDT Mitch luis [facility] CPT-50796 Level 3 Est. Patient 19:43:34 CDT Mitch luis [facility] CPT-13956 Level 4 Est. Patient 09:30:18 CDT Mitch luis [facility] CPT-02965 Level 3 Est. Patient 15:10:14 CDT Joe Jason courtangela [facility] CPT-56252 Level 3 Est. Patient 15:03:46 CDT Joe Jason anh [facility] CPT-10618 Level 3 Est. Patient 14:21:06 CDT Mitch luis [facility] CPT-58301 Level 3 Est. Patient 14:52:06 CDT Joe Jason kamara [facility] CPT-70314 Level 3 Est. Patient 09:34:30 VOCAL TEACHER Mitch luis [facility] CPT-05913 Level 3 Est. Patient 09:37:15 CDT Mitch luis [facility] CPT-46796 Level 3 Est. Patient 17:01:00 VOCAL TEACHER Mitch luis [facility] CPT-92553 Level 3 Est. Patient 13:53:19 VOCAL TEACHER Mitch luis [facility] CPT-75626 Level 3 Est. Patient 19:19:37 VOCAL TEACHER Mitch luis [facility] CPT-89425 Level 3 Est. Patient 13:25:53 VOCAL TEACHER Tavo toure MD [facility] CPT-93559 Level 3 Est. Patient 18:17:28 CDT Mitch luis [facility] CPT-36854 Level 3 Est. Patient 15:22:57 CDT Mitch luis [facility] CPT-91705 Level 3 Est. Patient 18:21:50 CDT Mitch W L janelle [facility] CPT-81752 Level 3 Est. Patient 18:20:38 CDT Mitch W L janelle [facility] CPT-77442 Level 3 Est. Patient 15:37:55 CDT Mitch W L janelle [facility] CPT-41353 Level 2 Est. Patient 15:54:44 CDT Carmine benton MD [facility] CPT-41089 Level 3 Est. Patient 21:46:01 VOCAL TEACHER Mitch luis [facility] CPT-42376 Level 3 Est. Patient 22:15:50 CDT Mitch luis [facility] CPT-67576 Level 3 Est. Patient 10:48:15 CDT Mitch luis [facility] CPT-69268 Level 3 Est. Patient 23:20:57 CDT Tavo toure MD [facility] CPT-08497 Level 3 Est. Patient 16:26:13 CDT Mitch Ambrose Nona luis [facility] Procedures Code Procedure Name Date Entry Date Standard Desc ription CPT-95415 Venipuncture Draw Fee 09:26:17 CDT CPT-14461 PT/INR - LAB USE ONLY 13:32:49 VOCAL TEACHER CPT-21015 Venipuncture Draw Fee 13:32:49 VOCAL TEACHER CPT-60972 PT/INR - LAB USE ONLY 10:34:49 VOCAL TEACHER CPT-45214 Venipuncture Draw Fee 10:34:48 VOCAL TEACHER CPT-81258 PT/INR - LAB USE ONLY 09:22:03 VOCAL TEACHER CPT-60065 Venipuncture Draw Fee 09:22:02 VOCAL TEACHER CPT-98669 Hemoccult IFOBT - LAB USE ONLY 10:27:22 CDT CPT-97132 Venipuncture Draw Fee 08:27:08 CDT CPT-35432 Liver Profile - LAB USE ONLY 08:27:07 CDT 2 CPT-20200 Microalbumin - LAB USE ONLY 08:27:07 CDT 20 25/05/09 CPT-33491 PT/INR - LAB USE ONLY 08:27:07 CDT CPT-25777 HGBA1C - LAB USE ONLY 08:27:07 CDT CPT-36854 CBC - LAB USE ONLY 08:27:07 CDT CPT-48797 Venipuncture Draw Fee 11:09:14 CDT CPT-48144 Venipuncture Draw Fee 08:32:21 VOCAL TEACHER CPT-69103 Venipuncture Draw Fee 09:38:56 VOCAL TEACHER CPT-68159 No Charge Offi Visit 21:36:07 CDT 1 CPT-70280 Venipuncture Draw Fee 10:13:28 VOCAL TEACHER CPT-33431 Venipuncture Draw Fee 08:31:11 CDT CPT-13185 Aspir/Inject Med Joint 18:17:28 CDT CPT-13429 Venipuncture Draw Fee 10:13:30 CDT CPT-48052 Venipuncture Draw Fee 08:31:43 VOCAL TEACHER CPT-JTINJ Joint Injection 18:34:50 CDT CPT-89869 Knee 3V 12:25:09 CDT CPT-66875 Venipuncture Draw Fee 12:15:57 CDT CPT-060 Medical Surveillance Exam 21:31:43 CDT 2011 CPT-75924 Venipuncture Draw Fee 08:32:05 VOCAL TEACHER CPT-OV Office Visit 18:19:06 CDT
--- OUTSIDE RECORDS SUMMARY | 2020-01-18 13:18 | XMS REPORT | Clinical Summary ---
Author Author Admin, Mitch Leon Organization [facility] Address Unknown Phone Unavailable Allergies, Adverse Reactions, [...] Coronary atherosclerosis of unspecified type of vessel, [place] or graft EDEMA 782.3 Resolved Mitch Urbina [...] tab to equal 7mg daily WARFARIN SODIUM 99698548473 Active Mitch Arnol Urbina DO Active COLCRYS 0.6 MG TABS 1 tab qid prn gout COLCHICINE 68091531892 Active Kathie Juan RPT,RMA Active INVOKANA 100 MG ORAL TABS 1 tablet orally daily CANAGLIFLOZIN 92600011805 Active Mitch Arnol Carlitos Active MINOXIDIL 2.5 MG TABS 1 tablet daily for high blood pressure 10/23 MINOXIDIL 51545965117 Active Mitch Urbina DO Active AMLODIPINE BESYLATE 5 MG TABS 1 tablet by mouth daily AMLODIPINE BESYLATE 18643570424 Active Mitch Urbina DO Active MECLIZINE HCL 25 MG TAB 1 po tid 3 days, then 1/2 tab tid 3 days MECLIZINE HCL 95024882377 No Longer Active Corey SEGURA Active ALLOPURINOL 300 MG TABS Take 1 tablet by mouth daily 2 ALLOPURINOL 91201965745 No Longer Active Corey SEGURA Activ e CLONIDINE HCL 0.1 MG TABS 1 po bid 7 days, then 1/2 tab po b id 7 days CLONIDINE HCL 07702188619 No Longer Active Corey SEGURA Active COUMADIN 5 MG TABS 1 tab PO daily WARFARIN SODIUM 40624123084 Active Mitch Urbina DO Active COUMADIN 4 MG TABS 1 tablet daily WARFARIN SODI UM 98684487707 No Longer Active Corey SEGURA Active POLYTRIM 59207-3.1 UNIT/ML-% SOLN 1 drop in affected e ye every 3 hours while awake x 7 days POLYMYXIN B-TRIMETHOPRIM 44774009907 N o Longer Active Corey SEGURA Active LOSARTAN POTASSIUM-HCTZ 100-12.5 MG TABS 1 by mouth da rocky for high blood pressure LOSARTAN POTASSIUM-HCTZ 35710540784 Active Stephy Urbina DO Active LISINOPRIL-HYDROCHLOROTHIAZIDE 20-12.5 MG TABS 1 tab by mouth da rocky LISINOPRIL-HYDROCHLOROTHIAZIDE 62493720345 No Longer Active Mitch luis DO Active LISINOPRIL 20 MG TABS 1 tab po at HS LISINOPRIL 15531715579 No Longer Active Mitch Urbina DO Active COUMADIN 5 MG TABS 1 by mouth every other day WARFARIN SODIUM 05783009359 No Longer Active Mitch Urbina DO Active COUMADIN 6 MG TABS 1 by mouth every other day WARFARIN SODIUM 66189770029 No Longer Active Mitch W Carlitos DO Active SIMVASTATIN 40 MG TABS 1 tab daily at bedtime S IMVASTATIN 50926723300 Active Mitch Urbina DO Active SIMVASTATIN 20 MG TABS 1 tab daily at bedtime S IMVASTATIN 98627711940 No Longer Active Mitch Urbina DO Active LOVENOX 100 MG/ML SC SOLN One injection twice a day 09/15/15 ENOXAPARIN SODIUM 93743123490 No Longer Active Carmine Navarrete ctive JANUVIA 50 MG TABS Take one by mouth daily DIEGO GLIPTIN PHOSPHATE 38872283519 Active Mitch Urbina DO Active JANUVIA 100 MG TABS 1/2 by mouth every day DIEGO GLIPTIN PHOSPHATE 81537075994 No Longer Active Bijal Segal RN Active METFORMIN HCL 500 MG TABS 2 by mouth twice daily METFORMIN HCL 09600762525 Active Mitch Urbina DO Active GLIMEPIRIDE 4 MG TABS 1 tab po bid GLIMEPIRIDE 858236 91934 Active Mitch Urbina DO Active COLCRYS 0.6 MG TABS 1 po q 6 hours prn gout pain 03/02 COLCHICINE 75846369723 No Longer Active Camila Reese Active LISINOPRIL 5 MG TABS 1 by mouth every day LISIN OPRIL 55527545055 No Longer Active Nguyenmolly Perez Active KLOR-CON 20 MEQ PACK Take one by mouth daily 8 POTASSIUM CHLORIDE 63390444802 No Longer Active Nguyen Ana Active FUROSEMIDE 40 MG TABS 1 by mouth daily FUROSEMI DE 01568669657 No Longer Active Nguyen Ana Active PROVIGIL 200 MG TABS 1/2 tab po q day MODAFINIL 46515 792573 Active Mitch Urbina DO Active PROVIGIL 100 MG TABS Take one by mouth daily MO DAFINIL 79285167828 No Longer Active Mitch Urbina DO Active BACTRIM DS 800-160 MG TAB 1 tab by mouth twice daily 2 TRIMETHOPRIM-SULFAMETHOXAZOLE 29005394491 No Longer Active Renan Hays MD Active FAMOTIDINE 20 MG TABS by mouth twice a day FAMOTI ZULEIKA 13189704368 Active Mitch Urbina DO Active ADULT ASPIRIN LOW STRENGTH 81 MG TBDP 1 by mouth every daily ASPIRIN 05744475077 Active Mitch Urbina DO Active METOPROLOL TARTRATE 50 MG TABS 1 by mouth twice daily METOPROLOL TARTRATE 92976772381 Active Mitch Urbina DO Active BACTRIM DS 800-160 MG TAB 1 tab by mouth twice daily 2 BACTRIM DS 800-160 MG TAB 851366 TRIMETHOPRIM-SULFAMETHOXAZOLE Inac tive PROVIGIL 100 MG TABS Take one by mouth daily 4 PROVIGIL 100 MG TABS 703729 MODAFINIL Inactive FUROSEMIDE 40 MG TABS 1 by mouth daily FU ROSEMIDE 40 MG TABS 543162 FUROSEMIDE Inactive KLOR-CON 20 MEQ PACK Take one by mouth daily 8 KLOR-CON 20 MEQ PACK 217551 POTASSIUM CHLORIDE Inactive LISINOPRIL 5 MG TABS 1 by mouth every day LISINOPRIL 5 MG TABS 196852 LISINOPRIL Inactive COLCRYS 0.6 MG TABS 1 po q 6 hours prn gout pain 03/02 COLCRYS 0.6 MG TABS 481536 COLCHICINE Inactive JANUVIA 100 MG TABS 1/2 by mouth every day JANUVI A 100 MG TABS SITAGLIPTIN PHOSPHATE Inactive SIMVASTATIN 20 MG TABS 1 tab daily at bedtime SIMVASTATIN 20 MG TABS 911481 SIMVASTATIN Inactive COUMADIN 6 MG TABS 1 by mouth every other day COUMADIN 6 MG TABS 799455 WARFARIN SODIUM Inactive COUMADIN 5 MG TABS 1 by mouth every other day COUMADIN 5 MG TABS 585899 WARFARIN SODIUM Inactive LISINOPRIL 20 MG TABS 1 tab po at HS KOKI NOPRIL 20 MG TABS 191154 LISINOPRIL Inactive LISINOPRIL-HYDROCHLOROTHIAZIDE 20-12.5 MG TABS 1 tab by mouth da rocky LISINOPRIL-HYDROCHLOROTHIAZIDE 20-12.5 MG TABS 164709 LISINOPRIL-HYDROCHLOROTHIAZIDE Inactive POLYTRIM 92329-0.1 UNIT/ML-% SOLN 1 drop in affected e ye every 3 hours while awake x 7 days POLYTRIM 73931-8.1 UNIT/ML-% SOLN 97742 7 POLYMYXIN B-TRIMETHOPRIM Inactive COUMADIN 4 MG TABS 1 tablet daily COUMADIN 4 MG TABS 326582 WARFARIN SODIUM Inactive CLONIDINE HCL 0.1 MG TABS 1 po bid 7 days, then 1/2 tab po b id 7 days CLONIDINE HCL 0.1 MG TABS 644966 CLONIDINE HCL I nactive ALLOPURINOL 300 MG TABS Take 1 tablet by mouth daily 2 ALLOPURINOL 300 MG TABS 162337 ALLOPURINOL Inactive MECLIZINE HCL 25 MG TAB 1 po tid 3 days, then 1/2 tab tid 3 days MECLIZINE HCL 25 MG TAB 667098 MECLIZINE HCL Inactive LOVENOX 100 MG/ML SC SOLN One injection twice a day 20 09/15/15 LOVENOX 100 MG/ML SC SOLN 972132 ENOXAPARIN SODIUM Inactive Vital Signs Date Name [...] - Chem istry sodium, serum 136 mmol/L 107-719 2030/01/14 carbon dioxide, venous blood 25.4 mmol/L 21.0-32 [...] CBC - Chemistry cholesterol, serum 136 mg/dL 685-252 6048/08/09 triglyceride, serum, fasting 187 mg/dL 30-200 HDL [...] 1.0-3.5 Encounters Code Encounter Date Provider Facility CPT-70967 Level 3 Est. Patient 14:21:06 CDT Mitch luis -95553 Level 3 Est. [facility] 14:52:06 [facility] Patient 09:34:30 DIRECTOR ERP Mitch luis -92271 Level 3 Est. Patient 09:37:15 CDT Mitch Arnol luis [facility] CPT-32498 Level 3 Est. Patient 17:01:00 DIRECTOR ERP Mitch luis [facility] CPT-32063 Level 3 Est. Patient 13:53:19 DIRECTOR ERP Mitch luis [facility] CPT-36802 Level 3 Est. Patient 19:19:37 DIRECTOR ERP Mitch luis [facility] CPT-37413 Level 3 Est. Patient 13:25:53 DIRECTOR ERP Tavo toure MD [facility]-18284 Level 3 Est. Patient 18:17:28 CDT Mitch Arnol luis [facility] CPT-81436 Level 3 Est. Patient 15:22:57 CDT Mitch Arnol luis [facility] CPT-75490 Level 3 Est. Patient 18:21:50 CDT Mitch Arnol luis [facility] CPT-78742 Level 3 Est. Patient 18:20:38 CDT Mitch Arnol L janelle -08669 Level 3 Est. Patient 15:37:55 CDT Mitch Arnol L janelle [facility] CPT-39854 Level 2 Est. Patient 15:54:44 CDT Carmine benton MD [facility]-91459 Level 3 Est. Patient 21:46:01 DIRECTOR ERP Mitch luis [facility] CPT-69557 Level 3 Est. Patient 22:15:50 CDT iMtch luis [facility] CPT-36867 Level 3 Est. Patient 10:48:15 CDT Mitch luis [facility] CPT-10119 Level 3 Est. Patient 23:20:57 CDT Tavo toure MD [facility] CPT-31781 Level 3 Est. Patient 16:26:13 CDT Mitch luis [facility] Procedures Code Procedure Name Date Entry Date Standard Desc ription CPT-11753 Hemoccult IFOBT - LAB USE ONLY 10:27:22 CDT CPT-17762 Venipuncture Draw Fee 08:27:08 CDT CPT-91299 Liver Profile - LAB USE ONLY 08:27:07 CDT 2 CPT-32592 Microalbumin - LAB USE ONLY 08:27:07 CDT 20 25/05/09 CPT-05787 PT/INR - LAB USE ONLY 08:27:07 CDT CPT-45828 HGBA1C - LAB USE ONLY 08:27:07 CDT CPT-88994 CBC - LAB USE ONLY 08:27:07 CDT CPT-44466 Venipuncture Draw Fee 11:09:14 CDT CPT-27989 Venipuncture Draw Fee 08:32:21 DIRECTOR ERP CPT-59269 Venipuncture Draw Fee 09:38:56 DIRECTOR ERP CPT-75096 No Charge Offi Visit 21:36:07 CDT 1 CPT-20795 Venipuncture Draw Fee 10:13:28 DIRECTOR ERP CPT-81783 Venipuncture Draw Fee 08:31:11 CDT CPT-80474 Aspir/Inject Med Joint 18:17:28 CDT CPT-97203 Venipuncture Draw Fee 10:13:30 CDT CPT-14143 Venipuncture Draw Fee 08:31:43 DIRECTOR ERP CPT-JTINJ Joint Injection 18:34:50 CDT CPT-88324 Knee 3V 12:25:09 CDT CPT-61232 Venipuncture Draw Fee 12:15:57 CDT CPT-060 Medical Surveillance Exam 21:31:43 CDT 2011 CPT-34149 Venipuncture Draw Fee 08:32:05 DIRECTOR ERP CPT-OV Office Visit 18:19:06 CDT
--- OUTSIDE RECORDS SUMMARY | 2020-01-18 13:19 | XMS REPORT | Clinical Summary ---
Author Author Admin, Mitch Leon Organization [facility] Address Unknown Phone Unavailable Allergies, Adverse Reactions, [...] ( 6mg total ) 2015 WARFARIN SODIUM 81499107243 Active Domi Rivera MA Acti ve INVOKANA 100 MG ORAL TABS 1 tablet orally daily CANAGLIFLOZIN 76920343243 Active Kathie Juan RPT,RMA Active MINOXIDIL 2.5 MG TABS 1 tablet daily for high blood pressure 10/23 MINOXIDIL 80476645309 Active Mitch Urbina DO Active AMLODIPINE BESYLATE 5 MG TABS 1 tablet by mouth daily AMLODIPINE BESYLATE 70103886516 Active Domi Rivera MA Active MECLIZINE HCL 25 MG TAB 1 po tid 3 days, then 1/2 tab tid 3 days MECLIZINE HCL 71475972530 No Longer Active Corey SEGURA Active ALLOPURINOL 300 MG TABS Take 1 tablet by mouth daily 2 ALLOPURINOL 17346352716 No Longer Active Corey SEGURA Activ e CLONIDINE HCL 0.1 MG TABS 1 po bid 7 days, then 1/2 tab po b id 7 days CLONIDINE HCL 93006534023 No Longer Active Corey SEGURA Active COUMADIN 5 MG TABS 1 tab PO daily WARFARIN SODIUM 33711265717 Active Mitch Urbina DO Active COUMADIN 4 MG TABS 1 tablet daily WARFARIN SODI UM 87684141749 No Longer Active Corey SEGURA Active POLYTRIM 67266-4.1 UNIT/ML-% SOLN 1 drop in affected e ye every 3 hours while awake x 7 days POLYMYXIN B-TRIMETHOPRIM 30476909284 N o Longer Active Corey SEGURA Active LOSARTAN POTASSIUM-HCTZ 100-12.5 MG TABS 1 by mouth [place] for high blood pressure LOSARTAN POTASSIUM-HCTZ 83745787565 Active Domi Rivera MA Active LISINOPRIL-HYDROCHLOROTHIAZIDE 20-12.5 MG TABS 1 tab by mouth da rocky LISINOPRIL-HYDROCHLOROTHIAZIDE 75057028316 No Longer Active Mitch luis DO Active LISINOPRIL 20 MG TABS 1 tab po at HS LISINOPRIL 10736878935 No Longer Active Mitch Urbina DO Active COUMADIN 5 MG TABS 1 by mouth every other day WARFARIN SODIUM 70270550594 No Longer Active Mitch Urbina DO Active COUMADIN 6 MG TABS 1 by mouth every other day WARFARIN SODIUM 09016279504 No Longer Active Mitch Urbina DO Active COLCRYS 0.6 MG TABS 1 tab qid prn gout COLCHICINE 00324757901 Active Corey SEGURA Active SIMVASTATIN 40 MG TABS 1 tab daily at bedtime S IMVASTATIN 71047981444 Active Domi Rivera MA Active SIMVASTATIN 20 MG TABS 1 tab daily at bedtime S IMVASTATIN 05965784060 No Longer Active Mitch Urbina DO Active LOVENOX 100 MG/ML SC SOLN One injection twice a day 09/15/15 ENOXAPARIN SODIUM 23606576072 No Longer Active Carmine Navarrete ctive JANUVIA 50 MG TABS Take one by mouth daily DIEGO GLIPTIN PHOSPHATE 99144822529 Active oDmi Rivera MA Active JANUVIA 100 MG TABS 1/2 by mouth every day DIEGO GLIPTIN PHOSPHATE 35716919465 No Longer Active Bijal Segal RN Active METFORMIN HCL 500 MG TABS 2 by mouth twice daily METFORMIN HCL 56238639150 Active Kathie Juan RPT,RMA Active GLIMEPIRIDE 4 MG TABS 1 tab po bid GLIMEPIRIDE 096402 84079 Active Kathie Juan RPT,RMA Active COLCRYS 0.6 MG TABS 1 po q 6 hours prn gout pain 03/02 COLCHICINE 51797426687 No Longer Active Camila Reese Active LISINOPRIL 5 MG TABS 1 by mouth every day LISIN OPRIL 18959874648 No Longer Active Nguyen Perez Active KLOR-CON 20 MEQ PACK Take one by mouth daily 8 POTASSIUM CHLORIDE 53571612335 No Longer Active Nguyen Perez Active FUROSEMIDE 40 MG TABS 1 by mouth daily FUROSEMI DE 79528947527 No Longer Active Nguyenmolly Perez Active PROVIGIL 200 MG TABS 1/2 tab po q day MODAFINIL 00747 638069 Active Domi Rivera MA Active PROVIGIL 100 MG TABS Take one by mouth daily MO DAFINIL 66512758001 No Longer Active Mitch Urbina DO Active BACTRIM DS 800-160 MG TAB 1 tab by mouth twice daily 2 TRIMETHOPRIM-SULFAMETHOXAZOLE 71063543472 No Longer Active Renan Hays MD Active FAMOTIDINE 20 MG TABS by mouth twice a day FAMOTI DINE 76136333027 Active Mitch Urbina DO Active ADULT ASPIRIN LOW STRENGTH 81 MG TBDP 1 by mouth every daily ASPIRIN 08226459864 Active Mitch Urbina DO Active METOPROLOL TARTRATE 50 MG TABS 1 by mouth twice daily METOPROLOL TARTRATE 52545398057 Active Domi Rivera MA Active BACTRIM DS 800-160 MG TAB 1 tab by mouth twice daily 2 BACTRIM DS 800-160 MG TAB 749277 TRIMETHOPRIM-SULFAMETHOXAZOLE Inac tive PROVIGIL 100 MG TABS Take one by mouth daily 4 PROVIGIL 100 MG TABS 610269 MODAFINIL Inactive FUROSEMIDE 40 MG TABS 1 by mouth daily FU ROSEMIDE 40 MG TABS 663855 FUROSEMIDE Inactive KLOR-CON 20 MEQ PACK Take one by mouth daily 8 KLOR-CON 20 MEQ PACK 048788 POTASSIUM CHLORIDE Inactive LISINOPRIL 5 MG TABS 1 by mouth every day LISINOPRIL 5 MG TABS 746996 LISINOPRIL Inactive COLCRYS 0.6 MG TABS 1 po q 6 hours prn gout pain 03/02 COLCRYS 0.6 MG TABS 494659 COLCHICINE Inactive JANUVIA 100 MG TABS 1/2 by mouth every day JANUVI A 100 MG TABS SITAGLIPTIN PHOSPHATE Inactive SIMVASTATIN 20 MG TABS 1 tab daily at bedtime SIMVASTATIN 20 MG TABS 729511 SIMVASTATIN Inactive COUMADIN 6 MG TABS 1 by mouth every other day COUMADIN 6 MG TABS 781892 WARFARIN SODIUM Inactive COUMADIN 5 MG TABS 1 by mouth every other day COUMADIN 5 MG TABS 790740 WARFARIN SODIUM Inactive LISINOPRIL 20 MG TABS 1 tab po at HS KOKI NOPRIL 20 MG TABS 720664 LISINOPRIL Inactive LISINOPRIL-HYDROCHLOROTHIAZIDE 20-12.5 MG TABS 1 tab by mouth da rocky LISINOPRIL-HYDROCHLOROTHIAZIDE 20-12.5 MG TABS 825151 LISINOPRIL-HYDROCHLOROTHIAZIDE Inactive POLYTRIM 37736-0.1 UNIT/ML-% SOLN 1 drop in affected e ye every 3 hours while awake x 7 days POLYTRIM 03900-4.1 UNIT/ML-% SOLN 78792 7 POLYMYXIN B-TRIMETHOPRIM Inactive COUMADIN 4 MG TABS 1 tablet daily COUMADIN 4 MG TABS 880427 WARFARIN SODIUM Inactive CLONIDINE HCL 0.1 MG TABS 1 po bid 7 days, then 1/2 tab po b id 7 days CLONIDINE HCL 0.1 MG TABS 705403 CLONIDINE HCL I nactive ALLOPURINOL 300 MG TABS Take 1 tablet by mouth daily 2 ALLOPURINOL 300 MG TABS 838841 ALLOPURINOL Inactive MECLIZINE HCL 25 MG TAB 1 po tid 3 days, then 1/2 tab tid 3 days MECLIZINE HCL 25 MG TAB 990243 MECLIZINE HCL Inactive LOVENOX 100 MG/ML SC SOLN One injection twice a day 09/15/15 LOVENOX 100 MG/ML SC SOLN 553897 ENOXAPARIN SODIUM Inactive Vital Signs Date Name [...] Ag - Chemistry sodium, serum 141 mmol/L 893-681 0431/07/06 potassium, serum 4.4 mmol/L 3.5-5.2 chloride, serum [...] - Chem istry sodium, serum 136 mmol/L 406-650 7363/01/14 carbon dioxide, venous blood 25.4 mmol/L 21.0-32 [...] 7.0 % 4.3-6.0 cholesterol, serum 120 mg/dL 133-399 3504/07/06 triglyceride, serum, fasting 186 mg/dL 30-200 HDL [...] 1.0-3.5 Encounters Code Encounter Date Provider Facility CPT-40346 Level 3 Est. Patient 09:34:30 MERCHANDISE APPRAISER Mitch luis [facility] CPT-95327 Level 3 Est. Patient 09:37:15 CDT Mitch luis [facility] CPT-78825 Level 3 Est. Patient 17:01:00 MERCHANDISE APPRAISER Mitch luis [facility] CPT-47508 Level 3 Est. Patient 13:53:19 MERCHANDISE APPRAISER Mitch luis [facility] CPT-17869 Level 3 Est. Patient 19:19:37 MERCHANDISE APPRAISER Mitch luis [facility] CPT-97512 Level 3 Est. Patient 13:25:53 MERCHANDISE APPRAISER Tavo toure MD [facility] CPT-54433 Level 3 Est. Patient 18:17:28 CDT Mitch luis [facility] CPT-11853 Level 3 Est. Patient 15:22:57 CDT Mitch luis [facility] CPT-39045 Level 3 Est. Patient 18:21:50 CDT Mitch luis [facility] CPT-70792 Level 3 Est. Patient 18:20:38 CDT Mitch luis [facility] CPT-91226 Level 3 Est. Patient 15:37:55 CDT Mitch luis [facility] CPT-32708 Level 2 Est. Patient 15:54:44 CDT Carmine benton MD [facility] CPT-21138 Level 3 Est. Patient 21:46:01 MERCHANDISE APPRAISER Mitch luis [facility] CPT-51934 Level 3 Est. Patient 22:15:50 CDT Mitch luis [facility] CPT-20538 Level 3 Est. Patient 10:48:15 CDT Mitch luis [facility] CPT-84247 Level 3 Est. Patient 23:20:57 CDT Tavo toure MD [facility] CPT-33964 Level 3 Est. Patient 16:26:13 CDT Mitch luis [facility] Procedures Code Procedure Name Date Entry Date Standard Desc ription CPT-34060 Venipuncture Draw Fee 08:32:21 MERCHANDISE APPRAISER CPT-78687 Venipuncture Draw Fee 09:38:56 MERCHANDISE APPRAISER CPT-88072 No Charge Offi Visit 21:36:07 CDT 1 CPT-55857 Venipuncture Draw Fee 10:13:28 MERCHANDISE APPRAISER CPT-86895 Venipuncture Draw Fee 08:31:11 CDT CPT-18590 Aspir/Inject Med Joint 18:17:28 CDT CPT-74017 Venipuncture Draw Fee 10:13:30 CDT CPT-82885 Venipuncture Draw Fee 08:31:43 MERCHANDISE APPRAISER CPT-JTINJ Joint Injection 18:34:50 CDT CPT-68143 Knee 3V 12:25:09 CDT CPT-71416 Venipuncture Draw Fee 12:15:57 CDT CPT-060 Medical Surveillance Exam 21:31:43 CDT 2011 CPT-00779 Venipuncture Draw Fee 08:32:05 MERCHANDISE APPRAISER CPT-OV Office Visit 18:19:06 CDT
--- OUTSIDE RECORDS SUMMARY | 2020-01-18 13:19 | XMS REPORT | Clinical Summary ---
Author Author Admin, Mitch Leon Organization [facility] Address Unknown Phone Unavailable Allergies, Adverse Reactions, [...] Coronary atherosclerosis of unspecified type of vessel, [place] or graft EDEMA 782.3 Resolved Mitch Urbina [...] joint disease, knee, left 715.96 Active Mitch rAnol Urbina DO Osteoarthrosis, unspecified whether generalized or [...] by mouth twice a day 2017 FAMOTIDINE 62273039457 No Longer Active Mitch Urbina DO Active COLCRYS 0.6 MG ORAL TABLET 1 tab qid prn gout C OLCHICINE 47110126569 No Longer Active Mitch Urbina DO Active GLIMEPIRIDE 2 MG ORAL TABLET 1 po BID GLIMEPIRID E 35359004697 Active Renee Oconnor [employer]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 COLCHICINE 59 021796909 Active Mitch Urbina DO Active COUMADIN 1 MG ORAL TABLET 2 tabs orally daily with the 5mg tab to equal 7mg daily WARFARIN SODIUM 98700567970 Active Ana Wallace Active INVOKANA 100 MG ORAL TABLET 1 tablet orally daily CANAGLIFLOZIN 63955733765 Active Mitch Urbina DO Active MINOXIDIL 2.5 MG ORAL TABLET 1 tablet daily for high blood press ure MINOXIDIL 82092594296 Active Mitch Urbina DO Active MECLIZINE HCL 25 MG ORAL TABLET 1 po tid 3 days, then 1/2 ta b tid 3 days MECLIZINE HCL 72528891385 No Longer Active Corey SEGURA Active ALLOPURINOL 300 MG ORAL TABLET Take 1 tablet by mouth daily 2012 ALLOPURINOL 45660347337 No Longer Active Corey SEGURA Active CLONIDINE HCL 0.1 MG ORAL TABLET 1 po bid 7 days, then 1/2 t ab po bid 7 days CLONIDINE HCL 00046982613 No Longer Active Corey SEGURA Active COUMADIN 5 MG ORAL TABLET 1 tab PO daily WARFAR IN SODIUM 42947939336 Active Mitch Urbina DO Active COUMADIN 4 MG ORAL TABLET 1 tablet daily WARFAR IN SODIUM 76353271127 No Longer Active Corey SEGURA Active POLYTRIM 44599-4.1 UNIT/ML-% OPHTHALMIC SOLUTION 1 rui p in affected eye every 3 hours while awake x 7 days POLYMYXIN B-TRIMETHOP RIM 35704704183 No Longer Active Corey SEGURA Active LOSARTAN POTASSIUM-HCTZ 100-12.5 MG ORAL TABLET 1 by m outh daily for high blood pressure LOSARTAN POTASSIUM-HCTZ 83797371677 No Longer A ctive Mitch Urbina DO Active LISINOPRIL-HYDROCHLOROTHIAZIDE 20-12.5 MG ORAL TABLET 1 tab by m outh daily LISINOPRIL-HYDROCHLOROTHIAZIDE 00371340344 No Longer Active Mitch Urbina DO Active LISINOPRIL 20 MG ORAL TABLET 1 tab po at HS LIS INOPRIL 96063511867 No Longer Active Mitch Urbina DO Active COUMADIN 5 MG ORAL TABLET 1 by mouth every other day 2 WARFARIN SODIUM 35582789933 No Longer Active Mitch Urbina DO Active COUMADIN 6 MG ORAL TABLET 1 by mouth every other day 2 WARFARIN SODIUM 12421223582 No Longer Active Mitch Urbina DO Active SIMVASTATIN 40 MG ORAL TABLET 1 tab daily at bedtime SIMVASTATIN 94544221788 Active Mitch Urbina DO Active SIMVASTATIN 20 MG ORAL TABLET 1 tab daily at bedtime 2 SIMVASTATIN 01475659479 No Longer Active Mitch Urbina DO Active LOVENOX 100 MG/ML SUBCUTANEOUS SOLUTION One injection twice a da y ENOXAPARIN SODIUM 97568627589 No Longer Active Carmine Yusuf MD Active JANUVIA 50 MG ORAL TABLET Take one by mouth daily SITAGLIPTIN PHOSPHATE 91444295722 Active Mitch W Carlitos DO Active JANUVIA 100 MG ORAL TABLET 1/2 by mouth every day 2011 SITAGLIPTIN PHOSPHATE 24174297453 No Longer Active Bijal Segal RN Acti ve METFORMIN HCL 500 MG ORAL TABLET 2 by mouth twice daily METFORMIN HCL 28382386562 Active Mitch Arnol Urbina DO Active COLCRYS 0.6 MG ORAL TABLET 1 po q 6 hours prn gout pain COLCHICINE 72127744756 No Longer Active Camila Reese Active LISINOPRIL 5 MG ORAL TABLET 1 by mouth every day 11/17 LISINOPRIL 95251305254 No Longer Active Nguyen Perez Active KLOR-CON 20 MEQ ORAL PACKET Take one by mouth daily 09/10/08 POTASSIUM CHLORIDE 13766188269 No Longer Active Nguyen Perez Active FUROSEMIDE 40 MG ORAL TABLET 1 by mouth daily F UROSEMIDE 26162856851 No Longer Active Nguyen Perez Active PROVIGIL 200 MG ORAL TABLET 1/2 tab po q day MODA FINIL 52828825035 Active Renee Elvin BURNETTN Active PROVIGIL 100 MG ORAL TABLET Take one by mouth daily 08/20/04 MODAFINIL 22625973617 No Longer Active Mitch Urbina DO Active BACTRIM DS 800-160 MG ORAL TABLET 1 tab by mouth twice daily 201 10/19/09 TRIMETHOPRIM-SULFAMETHOXAZOLE 55545071940 No Longer Active C alberto Hays MD Active ADULT ASPIRIN LOW STRENGTH 81 MG ORAL TABLET DISINTEGR ATING 1 by mouth every daily ASPIRIN 86599926599 Active Mitch Urbina DO Ac tive METOPROLOL TARTRATE 50 MG ORAL TABLET 1 by mouth twice daily METOPROLOL TARTRATE 30713557749 Active Mitch Urbina DO Active BACTRIM DS 800-160 MG ORAL TABLET 1 tab by mouth twice daily 201 10/19/09 BACTRIM DS 800-160 MG ORAL TABLET 961957 TRIMETHOPRIM-SULFAMETHOXAZOLE Inactive PROVIGIL 100 MG ORAL TABLET Take one by mouth daily 08/20/04 PROVIGIL 100 MG ORAL TABLET 831866 MODAFINIL Inactive FUROSEMIDE 40 MG ORAL TABLET 1 by mouth daily FUROSEMIDE 40 MG ORAL TABLET 032279 FUROSEMIDE Inactive KLOR-CON 20 MEQ ORAL PACKET Take one by mouth daily 09/10/08 KLOR- CON 20 MEQ ORAL PACKET 4104779 POTASSIUM CHLORIDE Inactive LISINOPRIL 5 MG ORAL TABLET 1 by mouth every day 11/17 LISINOPRIL 5 MG ORAL TABLET 359382 LISINOPRIL Inactive COLCRYS 0.6 MG ORAL TABLET 1 po q 6 hours prn gout pain COLCRYS 0.6 MG ORAL TABLET 227368 COLCHICINE Inactive JANUVIA 100 MG ORAL TABLET 1/2 by mouth every day 2011 JANUVIA 100 MG ORAL TABLET SITAGLIPTIN PHOSPHATE Inactive SIMVASTATIN 20 MG ORAL TABLET 1 tab daily at bedtime 2 SIMVASTATIN 20 MG ORAL TABLET 350510 SIMVASTATIN Inactive COUMADIN 6 MG ORAL TABLET 1 by mouth every other day COUMADIN 6 MG ORAL TABLET 646968 WARFARIN SODIUM Inactive COUMADIN 5 MG ORAL TABLET 1 by mouth every other day COUMADIN 5 MG ORAL TABLET 678711 WARFARIN SODIUM Inactive LISINOPRIL 20 MG ORAL TABLET 1 tab po at HS LISINOPRIL 20 MG ORAL TABLET 238542 LISINOPRIL Inactive LISINOPRIL-HYDROCHLOROTHIAZIDE 20-12.5 MG ORAL TABLET 1 tab by m outh daily LISINOPRIL-HYDROCHLOROTHIAZIDE 20-12.5 MG ORAL TABLET 793176 LISINOPRIL-HYDROCHLOROTHIAZIDE Inactive POLYTRIM 18478-9.1 UNIT/ML-% OPHTHALMIC SOLUTION 1 rui p in affected eye every 3 hours while awake x 7 days POLYTRIM 1000 0-0.1 UNIT/ML-% OPHTHALMIC SOLUTION 598398 POLYMYXIN B-TRIMETHOPRIM Inactive COUMADIN 4 MG ORAL TABLET 1 tablet daily COUMADIN 4 MG ORAL TABLET 505223 WARFARIN SODIUM Inactive CLONIDINE HCL 0.1 MG ORAL TABLET 1 po bid 7 days, then 1/2 t ab po bid 7 days CLONIDINE HCL 0.1 MG ORAL TABLET 503819 CLONIDIN E HCL Inactive ALLOPURINOL 300 MG ORAL TABLET Take 1 tablet by mouth daily 2012 ALLOPURINOL 300 MG ORAL TABLET 520679 ALLOPURINOL I nactive MECLIZINE HCL 25 MG ORAL TABLET 1 po tid 3 days, then 1/2 ta b tid 3 days MECLIZINE HCL 25 MG ORAL TABLET 826267 MECLIZINE HCL Inactive AMLODIPINE BESYLATE 5 MG ORAL TABLET 1 tablet by mouth daily 201 01/20/04 AMLODIPINE BESYLATE 5 MG ORAL TABLET 097636 AMLODIPINE BESYLATE Inactive KEFLEX 500 MG ORAL CAPSULE 1 po qid K EFLEX 500 MG ORAL CAPSULE 220716 CEPHALEXIN Inactive COLCRYS 0.6 MG ORAL TABLET 1 tab qid prn gout COLCRYS 0.6 MG ORAL TABLET 935511 COLCHICINE Inactive FAMOTIDINE 20 MG ORAL TABLET by mouth twice a day 2017 FAMOTIDINE 20 MG ORAL TABLET 646296 FAMOTIDINE Inactive LOVENOX 100 MG/ML SUBCUTANEOUS SOLUTION One injection twice a da y LOVENOX 100 MG/ML SUBCUTANEOUS SOLUTION 816408 ENOXAPAR IN SODIUM Inactive Vital Signs Date [...] - Chem istry sodium, serum 139 mmol/L 297-041 7329/07/17 potassium, serum 4.2 mmol/L 3.5-5.2 chloride, serum 102 mmol/L 98-107 carbon dioxide, venous blood 28.9 mmol/L 21.0-32 .0 blood glucose 211 mg/dL 65-110 calcium, serum 10.6 mg/dL 8.5-10.1 urea nitrogen, blood 29 mg/dL 7-18 creatinine, serum 1.24 mg/dL 0.60-1.30 sodium, serum 141 mmol/L 776-852 8370/08/07 potassium, serum 4.5 mmol/L 3.5-5.2 chloride, serum [...] ... - Chemistry sodium, serum 144 mmol/L 063-337 4120/06/12 carbon dioxide, venous blood 26.6 mmol/L 21.0-32 [...] HGBA1C - Chemistry cholesterol, serum 136 mg/dL 986-741 2532/12/06 triglyceride, serum, fasting 247 mg/dL 30-200 HDL cholesterol, serum 41 mg/dL 32-60 LDL cholesterol, serum 46 mg/dL 0-130 aspartate aminotransferase (SGOT), serum 22 U/L 15-37 alanine aminotransferase (SGPT), serum 30 U/L 12-78 bilirubin, serum, total 0.80 mg/dL 0.00-1.00 hemoglobin A1C, blood, as % of total hemoglobin 6.4 % 4.3-6.0 Encounters Code Encounter Date Provider Facility CPT-76001 Level 3 Est. Patient 18:25:53 CDT Mitch luis [facility] CPT-77591 Level 3 Est. Patient 19:43:34 CDT Mitch luis [facility] CPT-47433 Level 4 Est. Patient 09:30:18 CDT Mitch luis DO [facility]-17864 Level 3 Est. Patient 15:10:14 CDT Joe kamara [facility] CPT-28357 Level 3 Est. Patient 15:03:46 CDT Devonjustincarlitos kamara [facility] [place]-68441 Level 3 Est. Patient 14:21:06 CDT Mitch lusi [facility]-88574 Level 3 Est. Patient 14:52:06 CDT Joe Jason kamara [facility] [place]-53319 Level 3 Est. Patient 09:34:30 [employer] Mitch luis [facility]-97331 Level 3 Est. Patient 09:37:15 CDT Mitch luis [facility]-78214 Level 3 Est. Patient 17:01:00 [employer] Mitch luis [facility] CPT-58209 Level 3 Est. Patient 13:53:19 [employer] Mitch luis [facility] CPT-15355 Level 3 Est. Patient 19:19:37 [employer] Mitch luis [facility] CPT-09748 Level 3 Est. Patient 13:25:53 [employer] Tavo toure MD [facility]-78452 Level 3 Est. Patient 18:17:28 CDT Mitch luis [facility] CPT-58972 Level 3 Est. Patient 15:22:57 CDT Mitch luis [facility] CPT-19886 Level 3 Est. Patient 18:21:50 CDT Mitch Ambrose L janelle [facility]-78281 Level 3 Est. Patient 18:20:38 CDT Mitch W L ee [facility] CPT-69275 Level 3 Est. Patient 15:37:55 CDT Mitch Ambrose L ee [facility] CPT-29161 Level 2 Est. Patient 15:54:44 CDT Carmine benton MD [facility] CPT-48761 Level 3 Est. Patient 21:46:01 [employer] Mitch luis [facility] CPT-97665 Level 3 Est. Patient 22:15:50 CDT Mitch luis [facility] CPT-08503 Level 3 Est. Patient 10:48:15 CDT Mitch Arnol luis [facility] CPT-45108 Level 3 Est. Patient 23:20:57 CDT Tavo toure MD [facility] CPT-97747 Level 3 Est. Patient 16:26:13 CDT Mitch luis [facility] Procedures Code Procedure Name Date Entry Date Standard Desc ription CPT-JTINJ Asp/Joint Injection 18:47:02 CDT CPT-46317 Venipuncture Draw Fee 09:26:17 CDT CPT-95019 PT/INR - LAB USE ONLY 13:32:49 [employer] CPT-15948 Venipuncture Draw Fee 13:32:49 [employer] CPT-50053 PT/INR - LAB USE ONLY 10:34:49 [employer] CPT-27881 Venipuncture Draw Fee 10:34:48 [employer] CPT-43863 PT/INR - LAB USE ONLY 09:22:03 [employer] CPT-42884 Venipuncture Draw Fee 09:22:02 [employer] CPT-23347 Hemoccult IFOBT - LAB USE ONLY 10:27:22 CDT CPT-31435 Venipuncture Draw Fee 08:27:08 CDT CPT-87347 Liver Profile - LAB USE ONLY 08:27:07 CDT 2 CPT-18183 Microalbumin - LAB USE ONLY 08:27:07 CDT 20 25/05/09 CPT-93522 PT/INR - LAB USE ONLY 08:27:07 CDT CPT-51647 HGBA1C - LAB USE ONLY 08:27:07 CDT CPT-93892 CBC - LAB USE ONLY 08:27:07 CDT CPT-49939 Venipuncture Draw Fee 11:09:14 CDT CPT-51872 Venipuncture Draw Fee 08:32:21 [employer] CPT-98966 Venipuncture Draw Fee 09:38:56 [employer] CPT-81721 No Charge Offi Visit 21:36:07 CDT 1 CPT-21556 Venipuncture Draw Fee 10:13:28 [employer] CPT-15625 Venipuncture Draw Fee 08:31:11 CDT CPT-53253 Aspir/Inject Med Joint 18:17:28 CDT CPT-63268 Venipuncture Draw Fee 10:13:30 CDT CPT-86504 Venipuncture Draw Fee 08:31:43 [employer] CPT-JTINJ Joint Injection 18:34:50 CDT CPT-78759 Knee 3V 12:25:09 CDT CPT-63400 Venipuncture Draw Fee 12:15:57 CDT CPT-060 Medical Surveillance Exam 21:31:43 CDT 2011 CPT-94677 Venipuncture Draw Fee 08:32:05 [employer] CPT-OV Office Visit 18:19:06 CDT
--- OUTSIDE RECORDS SUMMARY | 2020-01-18 13:19 | XMS REPORT | Clinical Summary ---
Author Author Admin, Mitch Leon Organization [facility] Address Unknown Phone Unavailable Allergies, Adverse [...] Coronary atherosclerosis of unspecified type of vessel, [place] or graft EDEMA 782.3 Active Mitch Urbina [...] 1 tablet by mouth daily AMLODIPINE BESYLATE 24588250235 Active Domi Rivera MA Active MECLIZINE HCL 25 MG TAB 1 po tid 3 days, then 1/2 tab tid 3 days MECLIZINE HCL 60431287544 No Longer Active Corey SEGURA Active ALLOPURINOL 300 MG TABS Take 1 tablet by mouth daily 2 ALLOPURINOL 57847442162 No Longer Active Corey SEGURA Activ e CLONIDINE HCL 0.1 MG TABS 1 po bid 7 days, then 1/2 tab po b id 7 days CLONIDINE HCL 93635880158 No Longer Active Corey SEGURA Active COUMADIN 5 MG TABS 1 tab PO daily WARFARIN SODIUM 88973359606 Active Mitch Urbina DO Active COUMADIN 4 MG TABS 1 tablet daily WARFARIN SODI UM 42222829538 No Longer Active Corey SEGURA Active POLYTRIM 87430-1.1 UNIT/ML-% SOLN 1 drop in affected e ye every 3 hours while awake x 7 days POLYMYXIN B-TRIMETHOPRIM 67714978092 N o Longer Active Corey SEGURA Active LOSARTAN POTASSIUM-HCTZ 100-12.5 MG TABS 1 by mouth da [place] for high blood pressure LOSARTAN POTASSIUM-HCTZ 14835857714 Active Stephy Urbina DO Active LISINOPRIL-HYDROCHLOROTHIAZIDE 20-12.5 MG TABS 1 tab by mouth da rocky LISINOPRIL-HYDROCHLOROTHIAZIDE 56393787545 No Longer Active Mitch luis DO Active LISINOPRIL 20 MG TABS 1 tab po at HS LISINOPRIL 51738893373 No Longer Active Mitch Urbina DO Active COUMADIN 5 MG TABS 1 by mouth every other day WARFARIN SODIUM 27285180781 No Longer Active Mitch Urbina DO Active COUMADIN 6 MG TABS 1 by mouth every other day WARFARIN SODIUM 42443421984 No Longer Active Mitch Urbina DO Active COLCRYS 0.6 MG TABS 1 tab qid prn gout COLCHICINE 97604223863 Active Corey SEGURA Active SIMVASTATIN 40 MG TABS 1 tab daily at bedtime S IMVASTATIN 48684533569 Active Domi Rivera MA Active SIMVASTATIN 20 MG TABS 1 tab daily at bedtime S IMVASTATIN 00673078328 No Longer Active Mitch Urbina DO Active LOVENOX 100 MG/ML SC SOLN One injection twice a day 09/15/15 ENOXAPARIN SODIUM 63708819512 No Longer Active Carmine Navarrete ctive JANUVIA 50 MG TABS Take one by mouth daily DIEGO GLIPTIN PHOSPHATE 07262640692 Active Kathie Juan RPT,RMA Active JANUVIA 100 MG TABS 1/2 by mouth every day DIEGO GLIPTIN PHOSPHATE 25116362399 No Longer Active Bijal Segal RN Active METFORMIN HCL 500 MG TABS 2 by mouth twice daily METFORMIN HCL 57664250588 Active Mitch Urbina DO Active GLIMEPIRIDE 4 MG TABS 1 tab po bid GLIMEPIRIDE 244102 02133 Active Mitch Urbina DO Active COLCRYS 0.6 MG TABS 1 po q 6 hours prn gout pain 03/02 COLCHICINE 15454669307 No Longer Active Camila Reese Active LISINOPRIL 5 MG TABS 1 by mouth every day LISIN OPRIL 41711631285 No Longer Active Nguyenmolly Perez Active KLOR-CON 20 MEQ PACK Take one by mouth daily 8 POTASSIUM CHLORIDE 00665385675 No Longer Active Nguyenmolly Perez Active FUROSEMIDE 40 MG TABS 1 by mouth daily FUROSEMI DE 03744659977 No Longer Active Nguyen Perez Active PROVIGIL 200 MG TABS 1/2 tab po q day MODAFINIL 15104 977239 Active Kathie Juan RPT,RMA Active PROVIGIL 100 MG TABS Take one by mouth daily MO DAFINIL 89814688979 No Longer Active Mitch Urbina DO Active BACTRIM DS 800-160 MG TAB 1 tab by mouth twice daily 2 TRIMETHOPRIM-SULFAMETHOXAZOLE 00933474992 No Longer Active Renan Hays MD Active FAMOTIDINE 20 MG TABS by mouth twice a day FAMOTI DINE 80047306923 Active Mitch Urbina DO Active ADULT ASPIRIN LOW STRENGTH 81 MG TBDP 1 by mouth every daily ASPIRIN 18148474551 Active Mitch Urbina DO Active METOPROLOL TARTRATE 50 MG TABS 1 by mouth twice daily METOPROLOL TARTRATE 49074397410 Active Kathie Juan RPT,RMA Acti ve BACTRIM DS 800-160 MG TAB 1 tab by mouth twice daily 2 BACTRIM DS 800-160 MG TAB 841165 TRIMETHOPRIM-SULFAMETHOXAZOLE Inac tive PROVIGIL 100 MG TABS Take one by mouth daily 4 PROVIGIL 100 MG TABS 069845 MODAFINIL Inactive FUROSEMIDE 40 MG TABS 1 by mouth daily FU ROSEMIDE 40 MG TABS 561633 FUROSEMIDE Inactive KLOR-CON 20 MEQ PACK Take one by mouth daily 8 KLOR-CON 20 MEQ PACK 433487 POTASSIUM CHLORIDE Inactive LISINOPRIL 5 MG TABS 1 by mouth every day LISINOPRIL 5 MG TABS 261612 LISINOPRIL Inactive COLCRYS 0.6 MG TABS 1 po q 6 hours prn gout pain 03/02 COLCRYS 0.6 MG TABS 969111 COLCHICINE Inactive JANUVIA 100 MG TABS 1/2 by mouth every day JANUVI A 100 MG TABS SITAGLIPTIN PHOSPHATE Inactive SIMVASTATIN 20 MG TABS 1 tab daily at bedtime SIMVASTATIN 20 MG TABS 092231 SIMVASTATIN Inactive COUMADIN 6 MG TABS 1 by mouth every other day COUMADIN 6 MG TABS 198440 WARFARIN SODIUM Inactive COUMADIN 5 MG TABS 1 by mouth every other day COUMADIN 5 MG TABS 039546 WARFARIN SODIUM Inactive LISINOPRIL 20 MG TABS 1 tab po at HS KOKI NOPRIL 20 MG TABS 878285 LISINOPRIL Inactive LISINOPRIL-HYDROCHLOROTHIAZIDE 20-12.5 MG TABS 1 tab by mouth da rocky LISINOPRIL-HYDROCHLOROTHIAZIDE 20-12.5 MG TABS 726288 LISINOPRIL-HYDROCHLOROTHIAZIDE Inactive POLYTRIM 53553-7.1 UNIT/ML-% SOLN 1 drop in affected e ye every 3 hours while awake x 7 days POLYTRIM 79549-6.1 UNIT/ML-% SOLN 91241 7 POLYMYXIN B-TRIMETHOPRIM Inactive COUMADIN 4 MG TABS 1 tablet daily COUMADIN 4 MG TABS 538237 WARFARIN SODIUM Inactive CLONIDINE HCL 0.1 MG TABS 1 po bid 7 days, then 1/2 tab po b id 7 days CLONIDINE HCL 0.1 MG TABS 710780 CLONIDINE HCL I nactive ALLOPURINOL 300 MG TABS Take 1 tablet by mouth daily 2 ALLOPURINOL 300 MG TABS 991917 ALLOPURINOL Inactive MECLIZINE HCL 25 MG TAB 1 po tid 3 days, then 1/2 tab tid 3 days MECLIZINE HCL 25 MG TAB 873230 MECLIZINE HCL Inactive LOVENOX 100 MG/ML SC SOLN One injection twice a day 09/15/15 LOVENOX 100 MG/ML SC SOLN 877506 ENOXAPARIN SODIUM Inactive Vital Signs Date Name [...] Description Chart Maintenance: Hemoccult added to fl owanat - Chemistry occult blood, stool (E&M) Positive [...] Ag - Chemistry sodium, serum 141 mmol/L 681-815 2359/07/06 potassium, serum 4.4 mmol/L 3.5-5.2 chloride, serum [...] 7.0 % 4.3-6.0 cholesterol, serum 120 mg/dL 111-554 8285/07/06 triglyceride, serum, fasting 186 mg/dL 30-200 HDL [...] 1.0-3.5 Encounters Code Encounter Date Provider Facility CPT-63996 Level 3 Est. Patient 09:37:15 CDT Mitch luis [facility] CPT-15724 Level 3 Est. Patient 17:01:00 OTR DRIVER Mitch luis [facility] CPT-64847 Level 3 Est. Patient 13:53:19 OTR DRIVER Mitch luis [facility] CPT-06091 Level 3 Est. Patient 19:19:37 OTR DRIVER Mitch luis [facility] CPT-74660 Level 3 Est. Patient 13:25:53 OTR DRIVER Tavo toure MD [facility] CPT-27147 Level 3 Est. Patient 18:17:28 CDT Mtich luis [facility] CPT-11827 Level 3 Est. Patient 15:22:57 CDT Mitch luis [facility] CPT-00404 Level 3 Est. Patient 18:21:50 CDT Mitch luis [facility] CPT-80903 Level 3 Est. Patient 18:20:38 CDT Mitch luis [facility] CPT-29238 Level 3 Est. Patient 15:37:55 CDT Mitch luis [facility] CPT-11195 Level 2 Est. Patient 15:54:44 CDT Carmine benton MD [facility] CPT-70484 Level 3 Est. Patient 21:46:01 OTR DRIVER Mitch luis [facility] CPT-65910 Level 3 Est. Patient 22:15:50 CDT Mitch luis [facility] CPT-40779 Level 3 Est. Patient 10:48:15 CDT Mitch luis [facility] CPT-87854 Level 3 Est. Patient 23:20:57 CDT Tavo toure MD [facility] CPT-72914 Level 3 Est. Patient 16:26:13 CDT Mitch luis [facility] Procedures Code Procedure Name Date Entry Date Standard Desc ription CPT-79833 No Charge Offi Visit 21:36:07 CDT 1 CPT-94879 Venipuncture Draw Fee 10:13:28 OTR DRIVER CPT-20810 Venipuncture Draw Fee 08:31:11 CDT CPT-68968 Aspir/Inject Med Joint 18:17:28 CDT CPT-55376 Venipuncture Draw Fee 10:13:30 CDT CPT-84861 Venipuncture Draw Fee 08:31:43 OTR DRIVER CPT-JTINJ Joint Injection 18:34:50 CDT CPT-05978 Knee 3V 12:25:09 CDT CPT-04572 Venipuncture Draw Fee 12:15:57 CDT CPT-060 Medical Surveillance Exam 21:31:43 CDT 2011 CPT-53788 Venipuncture Draw Fee 08:32:05 OTR DRIVER CPT-OV Office Visit 18:19:06 CDT
--- OUTSIDE RECORDS SUMMARY | 2020-01-18 13:20 | XMS REPORT | Clinical Summary ---
[...] 1 tablet by mouth daily AMLODIPINE BESYLATE [id number] No Longer Active Joe Williamson APRN Active MITIGARE 0.6 MG ORAL CAPS 2 capsules at onset of gout pain, then take one capsule at 1 hour if symptoms persist. COLCHICINE 59 714388026 Active Mitch Urbina DO Active COUMADIN 1 MG TAB 2 tabs orally daily with the 5mg tab to equal 7mg daily WARFARIN SODIUM 50266685305 Active Mitch Urbina DO Active COLCRYS 0.6 MG TABS 1 tab qid prn gout COLCHICINE 66705100699 Active Norma Cazares Active INVOKANA 100 MG ORAL TABS 1 tablet orally daily CANAGLIFLOZIN 00773574347 Active Brenda Shen Active MINOXIDIL 2.5 MG TABS 1 tablet daily for high blood pressure 10/23 MINOXIDIL 07727056385 Active Ana Wallace Active MECLIZINE HCL 25 MG TAB 1 po tid 3 days, then 1/2 tab tid 3 days MECLIZINE HCL 18034260044 No Longer Active Corey SEGURA Active ALLOPURINOL 300 MG TABS Take 1 tablet by mouth daily 2 ALLOPURINOL 27797898592 No Longer Active Corey SEGURA Activ e CLONIDINE HCL 0.1 MG TABS 1 po bid 7 days, then 1/2 tab po b id 7 days CLONIDINE HCL 85862225673 No Longer Active Corey SEGURA Active COUMADIN 5 MG TABS 1 tab PO daily WARFARIN SODIUM 21045877720 Active Mitch Urbina DO Active COUMADIN 4 MG TABS 1 tablet daily WARFARIN SODI UM 14943407398 No Longer Active Corey SEGURA Active POLYTRIM 57203-9.1 UNIT/ML-% SOLN 1 drop in affected e ye every 3 hours while awake x 7 days POLYMYXIN B-TRIMETHOPRIM 41559198147 N o Longer Active Corey SEGURA Active LOSARTAN POTASSIUM-HCTZ 100-12.5 MG TABS 1 by mouth da rocky for high blood pressure LOSARTAN POTASSIUM-HCTZ 99246258132 Active Stephy Urbina DO Active LISINOPRIL-HYDROCHLOROTHIAZIDE 20-12.5 MG TABS 1 tab by mouth da rocky LISINOPRIL-HYDROCHLOROTHIAZIDE 95231264647 No Longer Active Mitch luis DO Active LISINOPRIL 20 MG TABS 1 tab po at HS LISINOPRIL 60428116373 No Longer Active Mitch Urbina DO Active COUMADIN 5 MG TABS 1 by mouth every other day WARFARIN SODIUM 13344380311 No Longer Active Mitch Urbina DO Active COUMADIN 6 MG TABS 1 by mouth every other day WARFARIN SODIUM 79709045224 No Longer Active Mitch Urbina DO Active SIMVASTATIN 40 MG TABS 1 tab daily at bedtime S IMVASTATIN 59966627935 Active Mitch Urbina DO Active SIMVASTATIN 20 MG TABS 1 tab daily at bedtime S IMVASTATIN 21770467118 No Longer Active Mitch Urbina DO Active LOVENOX 100 MG/ML SC SOLN One injection twice a day 09/15/15 ENOXAPARIN SODIUM 66506995437 No Longer Active Carmine Navarrete ctive JANUVIA 50 MG TABS Take one by mouth daily DIEGO GLIPTIN PHOSPHATE 46211566471 Active Mitch Urbina DO Active JANUVIA 100 MG TABS 1/2 by mouth every day DIEGO GLIPTIN PHOSPHATE 15395508986 No Longer Active Bijal Segal RN Active METFORMIN HCL 500 MG TABS 2 by mouth twice daily METFORMIN HCL 38744091725 Active Mitch Urbina DO Active GLIMEPIRIDE 4 MG TABS 1 tab po bid GLIMEPIRIDE 077497 50140 Active Mitch Urbina DO Active COLCRYS 0.6 MG TABS 1 po q 6 hours prn gout pain 03/02 COLCHICINE 79849390290 No Longer Active Camila Reese Active LISINOPRIL 5 MG TABS 1 by mouth every day LISIN OPRIL 20396531113 No Longer Active Nguyen Perez Active KLOR-CON 20 MEQ PACK Take one by mouth daily 8 POTASSIUM CHLORIDE 83943854876 No Longer Active Nguyen Perez Active FUROSEMIDE 40 MG TABS 1 by mouth daily FUROSEMI DE 09473675656 No Longer Active Nguyen Perez Active PROVIGIL 200 MG TABS 1/2 tab po q day MODAFINIL 96398 991049 Active Kathie Juan RPT,RMA Active PROVIGIL 100 MG TABS Take one by mouth daily MO DAFINIL 12369073834 No Longer Active Mitch Urbina DO Active BACTRIM DS 800-160 MG TAB 1 tab by mouth twice daily 2 TRIMETHOPRIM-SULFAMETHOXAZOLE 13549294711 No Longer Active Renan Hays MD Active FAMOTIDINE 20 MG TABS by mouth twice a day FAMOTI DINE 63497724359 Active Mitch Urbina DO Active ADULT ASPIRIN LOW STRENGTH 81 MG TBDP 1 by mouth every daily ASPIRIN 99548106739 Active Mitch Urbina DO Active METOPROLOL TARTRATE 50 MG TABS 1 by mouth twice daily METOPROLOL TARTRATE 71738258877 Active Mitch Urbina DO Active BACTRIM DS 800-160 MG TAB 1 tab by mouth twice daily 2 BACTRIM DS 800-160 MG TAB 414826 TRIMETHOPRIM-SULFAMETHOXAZOLE Inac tive PROVIGIL 100 MG TABS Take one by mouth daily 4 PROVIGIL 100 MG TABS 544454 MODAFINIL Inactive FUROSEMIDE 40 MG TABS 1 by mouth daily FU ROSEMIDE 40 MG TABS 908850 FUROSEMIDE Inactive KLOR-CON 20 MEQ PACK Take one by mouth daily 8 KLOR-CON 20 MEQ PACK 217744 POTASSIUM CHLORIDE Inactive LISINOPRIL 5 MG TABS 1 by mouth every day LISINOPRIL 5 MG TABS 314203 LISINOPRIL Inactive COLCRYS 0.6 MG TABS 1 po q 6 hours prn gout pain 03/02 COLCRYS 0.6 MG TABS 218459 COLCHICINE Inactive JANUVIA 100 MG TABS 1/2 by mouth every day JANUVI A 100 MG TABS SITAGLIPTIN PHOSPHATE Inactive SIMVASTATIN 20 MG TABS 1 tab daily at bedtime SIMVASTATIN 20 MG TABS 950081 SIMVASTATIN Inactive COUMADIN 6 MG TABS 1 by mouth every other day COUMADIN 6 MG TABS 881416 WARFARIN SODIUM Inactive COUMADIN 5 MG TABS 1 by mouth every other day COUMADIN 5 MG TABS 133493 WARFARIN SODIUM Inactive LISINOPRIL 20 MG TABS 1 tab po at HS KOKI NOPRIL 20 MG TABS 767326 LISINOPRIL Inactive LISINOPRIL-HYDROCHLOROTHIAZIDE 20-12.5 MG TABS 1 tab by mouth da rocky LISINOPRIL-HYDROCHLOROTHIAZIDE 20-12.5 MG TABS 870244 LISINOPRIL-HYDROCHLOROTHIAZIDE Inactive POLYTRIM 49123-5.1 UNIT/ML-% SOLN 1 drop in affected e ye every 3 hours while awake x 7 days POLYTRIM 12840-1.1 UNIT/ML-% SOLN 75374 7 POLYMYXIN B-TRIMETHOPRIM Inactive COUMADIN 4 MG TABS 1 tablet daily COUMADIN 4 MG TABS 519373 WARFARIN SODIUM Inactive CLONIDINE HCL 0.1 MG TABS 1 po bid 7 days, then 1/2 tab po b id 7 days CLONIDINE HCL 0.1 MG TABS 699534 CLONIDINE HCL I nactive ALLOPURINOL 300 MG TABS Take 1 tablet by mouth daily 2 ALLOPURINOL 300 MG TABS 704106 ALLOPURINOL Inactive MECLIZINE HCL 25 MG TAB 1 po tid 3 days, then 1/2 tab tid 3 days MECLIZINE HCL 25 MG TAB 587143 MECLIZINE HCL Inactive AMLODIPINE BESYLATE 5 MG TABS 1 tablet by mouth daily AMLODIPINE BESYLATE 5 MG TABS 917238 AMLODIPINE BESYLATE Inactive LOVENOX 100 MG/ML SC SOLN One injection twice a day 09/15/15 LOVENOX 100 MG/ML SC SOLN 136313 ENOXAPARIN SODIUM Inactive Vital Signs Date Name [...] Range Description Chart Maintenance: [facility] - Chemistry occult blood, stool (E&M) Positive Lab Report: HGBA1C - Chemistry hemoglobin A1C, blood, as % of total hemoglobin 6.6 % 4.3-6.0 Lab Report: Lipid Panel, HEPATIC PANEL, MICROALB/CREAT W/RATIO, HGBA1C, CBC - Chemistry albumin/creatinine ratio, urine < 30 mg/g mg/g{creat} 0-2 9 hemoglobin A1C, blood, as % of total hemoglobin 6.3 % 4.3-6.0 triglyceride, serum, fasting 187 mg/dL 30-200 HDL cholesterol, serum 39 mg/dL 32-96 LDL cholesterol, serum 60 mg/dL 0-130 aspartate aminotransferase (SGOT), serum 24 U/L 15-37 alanine aminotransferase (SGPT), serum 29 U/L 12-78 bilirubin, serum, total 0.60 mg/dL 0.00-1.00 cholesterol, serum 136 mg/dL 130-200 Lab Report: [...] 15.8 SECS s 11.1-13.4 prothrombin time (patient) 19.9 SECS s 11.1-13.4 international normalized ratio (INR) 2.4 1.0-3.5 prothrombin time (patient) 16.9 SECS s 11.1-13.4 international normalized ratio (INR) 2.0 1.0-3.5 international normalized ratio (INR) 2.7 1.0-3.5 prothrombin time (patient) 17.8 SECS s 11.1-13.4 international normalized ratio (INR) 2.0 1.0-3.5 prothrombin time (patient) 21.3 SECS s 11.1-13.4 prothrombin time (patient) 19.9 SECS s 11.1-13.4 international normalized ratio (INR) 2.4 1.0-3.5 Encounters Code Encounter Date Provider Facility CPT-81947 Level 3 Est. Patient 15:10:14 CDT Joe kamara [facility] CPT-84315 Level 3 Est. Patient 15:03:46 CDT Joe kamara [facility] CPT-86996 Level 3 Est. Patient 14:21:06 CDT Mitch luis [facility] CPT-67491 Level 3 Est. Patient 14:52:06 CDT Joe kamara [facility] CPT-20778 Level 3 Est. Patient 09:34:30 ENVIRONMENTAL HEALTH SAFETY MANAGER Mitch luis [facility] CPT-52817 Level 3 Est. Patient 09:37:15 CDT Mitch luis [facility] CPT-76398 Level 3 Est. Patient 17:01:00 ENVIRONMENTAL HEALTH SAFETY MANAGER Mitch luis [facility] CPT-04300 Level 3 Est. Patient 13:53:19 ENVIRONMENTAL HEALTH SAFETY MANAGER Mitch luis [facility] CPT-79867 Level 3 Est. Patient 19:19:37 ENVIRONMENTAL HEALTH SAFETY MANAGER Mitch luis [facility] CPT-55802 Level 3 Est. Patient 13:25:53 ENVIRONMENTAL HEALTH SAFETY MANAGER Tavo toure MD [facility] CPT-78236 Level 3 Est. Patient 18:17:28 CDT Mitch Arnol L janelle [facility] CPT-47844 Level 3 Est. Patient 15:22:57 CDT Mitch W L janelle [facility] CPT-53140 Level 3 Est. Patient 18:21:50 CDT Mitch W L janelle [facility] CPT-44390 Level 3 Est. Patient 18:20:38 CDT Mitch W L janelle [facility] CPT-02677 Level 3 Est. Patient 15:37:55 CDT Mitch Arnol Nona janelle [facility] CPT-53836 Level 2 Est. Patient 15:54:44 CDT Carmine benton MD [facility] CPT-89755 Level 3 Est. Patient 21:46:01 ENVIRONMENTAL HEALTH SAFETY MANAGER Mitch luis [facility] CPT-95366 Level 3 Est. Patient 22:15:50 CDT Mitch Arnol luis [facility] CPT-99414 Level 3 Est. Patient 10:48:15 CDT Mitch luis [facility] CPT-40592 Level 3 Est. Patient 23:20:57 CDT Tavo toure MD [facility] CPT-93992 Level 3 Est. Patient 16:26:13 CDT Mitch luis [facility] Procedures Code Procedure Name Date Entry Date Standard Desc ription CPT-47416 PT/INR - LAB USE ONLY 13:32:49 ENVIRONMENTAL HEALTH SAFETY MANAGER CPT-71874 Venipuncture Draw Fee 13:32:49 ENVIRONMENTAL HEALTH SAFETY MANAGER CPT-10965 PT/INR - LAB USE ONLY 10:34:49 ENVIRONMENTAL HEALTH SAFETY MANAGER CPT-04878 Venipuncture Draw Fee 10:34:48 ENVIRONMENTAL HEALTH SAFETY MANAGER CPT-50985 PT/INR - LAB USE ONLY 09:22:03 ENVIRONMENTAL HEALTH SAFETY MANAGER CPT-49043 Venipuncture Draw Fee 09:22:02 ENVIRONMENTAL HEALTH SAFETY MANAGER CPT-53456 Hemoccult IFOBT - LAB USE ONLY 10:27:22 CDT CPT-36484 Venipuncture Draw Fee 08:27:08 CDT CPT-12137 Liver Profile - LAB USE ONLY 08:27:07 CDT 2 CPT-85080 Microalbumin - LAB USE ONLY 08:27:07 CDT 20 25/05/09 CPT-01936 PT/INR - LAB USE ONLY 08:27:07 CDT CPT-06657 HGBA1C - LAB USE ONLY 08:27:07 CDT CPT-95427 CBC - LAB USE ONLY 08:27:07 CDT CPT-64272 Venipuncture Draw Fee 11:09:14 CDT CPT-37229 Venipuncture Draw Fee 08:32:21 ENVIRONMENTAL HEALTH SAFETY MANAGER CPT-17631 Venipuncture Draw Fee 09:38:56 ENVIRONMENTAL HEALTH SAFETY MANAGER CPT-68332 No Charge Offi Visit 21:36:07 CDT 1 CPT-01129 Venipuncture Draw Fee 10:13:28 ENVIRONMENTAL HEALTH SAFETY MANAGER CPT-27931 Venipuncture Draw Fee 08:31:11 CDT CPT-39044 Aspir/Inject Med Joint 18:17:28 CDT CPT-48266 Venipuncture Draw Fee 10:13:30 CDT CPT-87435 Venipuncture Draw Fee 08:31:43 ENVIRONMENTAL HEALTH SAFETY MANAGER CPT-JTINJ Joint Injection 18:34:50 CDT CPT-19230 Knee 3V 12:25:09 CDT CPT-86719 Venipuncture Draw Fee 12:15:57 CDT CPT-060 Medical Surveillance Exam 21:31:43 CDT 2011 CPT-08071 Venipuncture Draw Fee 08:32:05 ENVIRONMENTAL HEALTH SAFETY MANAGER CPT-OV Office Visit 18:19:06 CDT
--- OUTSIDE RECORDS SUMMARY | 2020-01-18 13:20 | XMS REPORT | Clinical Summary ---
Author Author Admin, Mitch Leon Organization [facility] Address Unknown Phone Unavailable Allergies, Adverse Reactions, [...] BURSITIS, RIGHT 726.33 Resolved Br uce rAnol Carlitos DO Olecranon bursitis UNSPECIFIED ANEMIA 285.9 [...] ORAL TABLET 1 po BID GLIMEPIRID E 90531298482 Active Renee Oconnor LPN Active KEFLEX 500 MG ORAL CAPSULE 1 po qid CEPHALEXI N 16761651731 No Longer Active Mitch Urbina DO Active LOSARTAN POTASSIUM 100 MG ORAL TABLET 1 pill by mouth daily, for blood pressure LOSARTAN POTASSIUM 47750909935 Active Ana Wallace Active AMLODIPINE BESYLATE 5 MG ORAL TABLET 1 tablet by mouth daily 201 01/20/04 AMLODIPINE BESYLATE 40777200851 No Longer Active Joe fulton APRN Active MITIGARE 0.6 MG ORAL CAPSULE 2 capsules at onset of go ut pain, then take one capsule at 1 hour if symptoms persist. COLCHICINE 59 240416981 Active Mitch Urbina DO Active COUMADIN 1 MG ORAL TABLET 2 tabs orally daily with the 5mg tab to equal 7mg daily WARFARIN SODIUM 83809843930 Active Ana Wallace Active COLCRYS 0.6 MG ORAL TABLET 1 tab qid prn gout C OLCHICINE 34019626406 Active Norma Cazares Active INVOKANA 100 MG ORAL TABLET 1 tablet orally daily CANAGLIFLOZIN 51752072779 Active Mitch Urbina DO Active MINOXIDIL 2.5 MG ORAL TABLET 1 tablet daily for high blood press ure MINOXIDIL 90350288132 Active Mitch Urbina DO Active MECLIZINE HCL 25 MG ORAL TABLET 1 po tid 3 days, then 1/2 ta b tid 3 days MECLIZINE HCL 23396838331 No Longer Active Corey SEGURA Active ALLOPURINOL 300 MG ORAL TABLET Take 1 tablet by mouth daily 2012 ALLOPURINOL 48589831416 No Longer Active Corey SEGURA Active CLONIDINE HCL 0.1 MG ORAL TABLET 1 po bid 7 days, then 1/2 t ab po bid 7 days CLONIDINE HCL 17363082523 No Longer Active Corey SEGURA Active COUMADIN 5 MG ORAL TABLET 1 tab PO daily WARFAR IN SODIUM 64763096222 Active Mitch Urbina DO Active COUMADIN 4 MG ORAL TABLET 1 tablet daily WARFAR IN SODIUM 80329783445 No Longer Active Corey SEGURA Active POLYTRIM 28708-4.1 UNIT/ML-% OPHTHALMIC SOLUTION 1 rui p in affected eye every 3 hours while awake x 7 days POLYMYXIN B-TRIMETHOP RIM 03397895368 No Longer Active Corey SEGURA Active LOSARTAN POTASSIUM-HCTZ 100-12.5 MG ORAL TABLET 1 by m outh daily for high blood pressure LOSARTAN POTASSIUM-HCTZ 28880349188 No Longer A ctive Mitch Urbina DO Active LISINOPRIL-HYDROCHLOROTHIAZIDE 20-12.5 MG ORAL TABLET 1 tab by m outh daily LISINOPRIL-HYDROCHLOROTHIAZIDE 74113010799 No Longer Active Mitch Urbina DO Active LISINOPRIL 20 MG ORAL TABLET 1 tab po at HS LIS INOPRIL 33268222715 No Longer Active Mitch Urbina DO Active COUMADIN 5 MG ORAL TABLET 1 by mouth every other day 2 WARFARIN SODIUM 19864301954 No Longer Active Mitch Urbina DO Active COUMADIN 6 MG ORAL TABLET 1 by mouth every other day 2 WARFARIN SODIUM 56158108498 No Longer Active Mitch Urbina DO Active SIMVASTATIN 40 MG ORAL TABLET 1 tab daily at bedtime SIMVASTATIN 61648201808 Active Micth Urbina DO Active SIMVASTATIN 20 MG ORAL TABLET 1 tab daily at bedtime 2 SIMVASTATIN 34642068602 No Longer Active Mitch Urbina DO Active LOVENOX 100 MG/ML SUBCUTANEOUS SOLUTION One injection twice a da y ENOXAPARIN SODIUM 56429976930 No Longer Active Carmine Yusuf MD Active JANUVIA 50 MG ORAL TABLET Take one by mouth daily SITAGLIPTIN PHOSPHATE 15221627865 Active Mitch Urbina DO Active JANUVIA 100 MG ORAL TABLET 1/2 by mouth every day 2011 SITAGLIPTIN PHOSPHATE 13766485777 No Longer Active Bijal Segal RN Acti ve METFORMIN HCL 500 MG ORAL TABLET 2 by mouth twice daily METFORMIN HCL 02312593185 Active Mitch Urbina DO Active COLCRYS 0.6 MG ORAL TABLET 1 po q 6 hours prn gout pain COLCHICINE 16768482314 No Longer Active Camila Reese Active LISINOPRIL 5 MG ORAL TABLET 1 by mouth every day 11/17 LISINOPRIL 85645736537 No Longer Active Nguyen Coekman Active KLOR-CON 20 MEQ ORAL PACKET Take one by mouth daily 09/10/08 POTASSIUM CHLORIDE 19799598578 No Longer Active Nguyen Coekman Active FUROSEMIDE 40 MG ORAL TABLET 1 by mouth daily F UROSEMIDE 83956577003 No Longer Active Nguyen Coekman Active PROVIGIL 200 MG ORAL TABLET 1/2 tab po q day MODA FINIL 15237008148 Active Renee Oconnor BENDING ROLL HAND Active PROVIGIL 100 MG ORAL TABLET Take one by mouth daily 08/20/04 MODAFINIL 80920186855 No Longer Active Mitch Urbina DO Active BACTRIM DS 800-160 MG ORAL TABLET 1 tab by mouth twice daily 201 10/19/09 TRIMETHOPRIM-SULFAMETHOXAZOLE 10437345740 No Longer Active Elian Hays MD Active FAMOTIDINE 20 MG ORAL TABLET by mouth twice a day FAMOTIDINE 30436573735 Active Mitch Urbina DO Active ADULT ASPIRIN LOW STRENGTH 81 MG ORAL TABLET DISINTEGR ATING 1 by mouth every daily ASPIRIN 95582416098 Active Mitch Urbina DO Ac tive METOPROLOL TARTRATE 50 MG ORAL TABLET 1 by mouth twice daily METOPROLOL TARTRATE 73687983476 Active Mitch Urbina DO Active BACTRIM DS 800-160 MG ORAL TABLET 1 tab by mouth twice daily 201 10/19/09 BACTRIM DS 800-160 MG ORAL TABLET 887803 TRIMETHOPRIM-SULFAMETHOXAZOLE Inactive PROVIGIL 100 MG ORAL TABLET Take one by mouth daily 08/20/04 PROVIGIL 100 MG ORAL TABLET 695783 MODAFINIL Inactive FUROSEMIDE 40 MG ORAL TABLET 1 by mouth daily FUROSEMIDE 40 MG ORAL TABLET 271839 FUROSEMIDE Inactive KLOR-CON 20 MEQ ORAL PACKET Take one by mouth daily 09/10/08 KLOR- CON 20 MEQ ORAL PACKET 2940882 POTASSIUM CHLORIDE Inactive LISINOPRIL 5 MG ORAL TABLET 1 by mouth every day 11/17 LISINOPRIL 5 MG ORAL TABLET 336840 LISINOPRIL Inactive COLCRYS 0.6 MG ORAL TABLET 1 po q 6 hours prn gout pain COLCRYS 0.6 MG ORAL TABLET 301372 COLCHICINE Inactive JANUVIA 100 MG ORAL TABLET 1/2 by mouth every day 2011 JANUVIA 100 MG ORAL TABLET SITAGLIPTIN PHOSPHATE Inactive SIMVASTATIN 20 MG ORAL TABLET 1 tab daily at bedtime 2 SIMVASTATIN 20 MG ORAL TABLET 655494 SIMVASTATIN Inactive COUMADIN 6 MG ORAL TABLET 1 by mouth every other day 2 COUMADIN 6 MG ORAL TABLET 884364 WARFARIN SODIUM Inactive COUMADIN 5 MG ORAL TABLET 1 by mouth every other day 2 COUMADIN 5 MG ORAL TABLET 252413 WARFARIN SODIUM Inactive LISINOPRIL 20 MG ORAL TABLET 1 tab po at HS LISINOPRIL 20 MG ORAL TABLET 331734 LISINOPRIL Inactive LISINOPRIL-HYDROCHLOROTHIAZIDE 20-12.5 MG ORAL TABLET 1 tab by m outh daily LISINOPRIL-HYDROCHLOROTHIAZIDE 20-12.5 MG ORAL TABLET 134148 LISINOPRIL-HYDROCHLOROTHIAZIDE Inactive POLYTRIM 11167-9.1 UNIT/ML-% OPHTHALMIC SOLUTION 1 rui p in affected eye every 3 hours while awake x 7 days POLYTRIM 1000 0-0.1 UNIT/ML-% OPHTHALMIC SOLUTION 220849 POLYMYXIN B-TRIMETHOPRIM Inactive COUMADIN 4 MG ORAL TABLET 1 tablet daily COUMADIN 4 MG ORAL TABLET 183735 WARFARIN SODIUM Inactive CLONIDINE HCL 0.1 MG ORAL TABLET 1 po bid 7 days, then 1/2 t ab po bid 7 days CLONIDINE HCL 0.1 MG ORAL TABLET 097244 CLONIDIN E HCL Inactive ALLOPURINOL 300 MG ORAL TABLET Take 1 tablet by mouth daily 2012 ALLOPURINOL 300 MG ORAL TABLET 492589 ALLOPURINOL I nactive MECLIZINE HCL 25 MG ORAL TABLET 1 po tid 3 days, then 1/2 ta b tid 3 days MECLIZINE HCL 25 MG ORAL TABLET 998242 MECLIZINE HCL Inactive AMLODIPINE BESYLATE 5 MG ORAL TABLET 1 tablet by mouth daily 201 01/20/04 AMLODIPINE BESYLATE 5 MG ORAL TABLET 693650 AMLODIPINE BESYLATE Inactive KEFLEX 500 MG ORAL CAPSULE 1 po qid K EFLEX 500 MG ORAL CAPSULE 564532 CEPHALEXIN Inactive LOVENOX 100 MG/ML SUBCUTANEOUS SOLUTION One injection twice a da y LOVENOX 100 MG/ML SUBCUTANEOUS SOLUTION 003362 ENOXAPAR IN SODIUM Inactive Vital Signs Date [...] - Chem istry sodium, serum 139 mmol/L 090-238 2251/07/17 potassium, serum 4.2 mmol/L 3.5-5.2 chloride, serum 102 mmol/L 98-107 carbon dioxide, venous blood 28.9 mmol/L 21.0-32 .0 blood glucose 211 mg/dL 65-110 calcium, serum 10.6 mg/dL 8.5-10.1 urea nitrogen, blood 29 mg/dL 7-18 creatinine, serum 1.24 mg/dL 0.60-1.30 sodium, serum 141 mmol/L 914-568 3723/08/07 potassium, serum 4.5 mmol/L 3.5-5.2 chloride, serum [...] ... - Chemistry sodium, serum 144 mmol/L 576-822 2121/06/12 carbon dioxide, venous blood 26.6 mmol/L 21.0-32 [...] HGBA1C - Chemistry cholesterol, serum 136 mg/dL 288-162 9295/12/06 triglyceride, serum, fasting 247 mg/dL 30-200 HDL cholesterol, serum 41 mg/dL 32-60 LDL cholesterol, serum 46 mg/dL 0-130 aspartate aminotransferase (SGOT), serum 22 U/L 15-37 alanine aminotransferase (SGPT), serum 30 U/L 12-78 bilirubin, serum, total 0.80 mg/dL 0.00-1.00 hemoglobin A1C, blood, as % of total hemoglobin 6.4 % 4.3-6.0 Encounters Code Encounter Date Provider Facility CPT-86305 Level 3 Est. Patient 18:25:53 CDT Mitch luis [facility] CPT-29990 Level 3 Est. Patient 19:43:34 CDT Mitch luis [facility] CPT-28980 Level 4 Est. Patient 09:30:18 CDT Mitch luis [facility] CPT-68023 Level 3 Est. Patient 15:10:14 CDT Joe kamara [facility] CPT-96085 Level 3 Est. Patient 15:03:46 CDT Joe kamara [facility] CPT-94486 Level 3 Est. Patient 14:21:06 CDT Mitch luis [facility] CPT-46723 Level 3 Est. Patient 14:52:06 CDT Joe kamara [facility] CPT-98389 Level 3 Est. Patient 09:34:30 INTERNAL CONSULTANT Mitch luis [facility] CPT-73350 Level 3 Est. Patient 09:37:15 CDT Mitch luis [facility] CPT-00517 Level 3 Est. Patient 17:01:00 INTERNAL CONSULTANT Mitch luis [facility] CPT-19931 Level 3 Est. Patient 13:53:19 INTERNAL CONSULTANT Mitch luis [facility] CPT-23378 Level 3 Est. Patient 19:19:37 INTERNAL CONSULTANT Mitch luis [facility] CPT-98191 Level 3 Est. Patient 13:25:53 INTERNAL CONSULTANT Tavo toure MD [facility] CPT-94554 Level 3 Est. Patient 18:17:28 CDT Mitch luis [facility] CPT-37060 Level 3 Est. Patient 15:22:57 CDT Mitch luis [facility] CPT-20800 Level 3 Est. Patient 18:21:50 CDT Mitch luis [facility] CPT-17402 Level 3 Est. Patient 18:20:38 CDT Mitch luis [facility] CPT-67196 Level 3 Est. Patient 15:37:55 CDT Mitch luis [facility] CPT-42525 Level 2 Est. Patient 15:54:44 CDT Carmine benton MD [facility] CPT-52575 Level 3 Est. Patient 21:46:01 INTERNAL CONSULTANT Mitch luis [facility] CPT-41113 Level 3 Est. Patient 22:15:50 CDT Mitch luis [facility] CPT-84394 Level 3 Est. Patient 10:48:15 CDT Mitch luis [facility] CPT-41395 Level 3 Est. Patient 23:20:57 CDT Tavo toure MD [facility] CPT-99660 Level 3 Est. Patient 16:26:13 CDT Mitch Arnol Nona janelle [facility] Procedures Code Procedure Name Date Entry Date Standard Desc ription CPT-62885 Venipuncture Draw Fee 09:26:17 CDT CPT-96794 PT/INR - LAB USE ONLY 13:32:49 INTERNAL CONSULTANT CPT-64183 Venipuncture Draw Fee 13:32:49 INTERNAL CONSULTANT CPT-84552 PT/INR - LAB USE ONLY 10:34:49 INTERNAL CONSULTANT CPT-00558 Venipuncture Draw Fee 10:34:48 INTERNAL CONSULTANT CPT-73434 PT/INR - LAB USE ONLY 09:22:03 INTERNAL CONSULTANT CPT-00639 Venipuncture Draw Fee 09:22:02 INTERNAL CONSULTANT CPT-23666 Hemoccult IFOBT - LAB USE ONLY 10:27:22 CDT CPT-08852 Venipuncture Draw Fee 08:27:08 CDT CPT-82698 Liver Profile - LAB USE ONLY 08:27:07 CDT 2 CPT-23367 Microalbumin - LAB USE ONLY 08:27:07 CDT 20 25/05/09 CPT-76455 PT/INR - LAB USE ONLY 08:27:07 CDT CPT-88939 HGBA1C - LAB USE ONLY 08:27:07 CDT CPT-80362 CBC - LAB USE ONLY 08:27:07 CDT CPT-23706 Venipuncture Draw Fee 11:09:14 CDT CPT-96126 Venipuncture Draw Fee 08:32:21 INTERNAL CONSULTANT CPT-37342 Venipuncture Draw Fee 09:38:56 INTERNAL CONSULTANT CPT-13833 No Charge Offi Visit 21:36:07 CDT 1 CPT-93874 Venipuncture Draw Fee 10:13:28 INTERNAL CONSULTANT CPT-21996 Venipuncture Draw Fee 08:31:11 CDT CPT-70527 Aspir/Inject Med Joint 18:17:28 CDT CPT-49460 Venipuncture Draw Fee 10:13:30 CDT CPT-51530 Venipuncture Draw Fee 08:31:43 INTERNAL CONSULTANT CPT-JTINJ Joint Injection 18:34:50 CDT CPT-68064 Knee 3V 12:25:09 CDT CPT-09052 Venipuncture Draw Fee 12:15:57 CDT CPT-060 Medical Surveillance Exam 21:31:43 CDT 2011 CPT-60943 Venipuncture Draw Fee 08:32:05 INTERNAL CONSULTANT CPT-OV Office Visit 18:19:06 CDT
--- OUTSIDE RECORDS SUMMARY | 2020-01-18 13:20 | XMS REPORT | Clinical Summary ---
Author Author Admin, Mitch Leon Organization [facility] [employer] Address Unknown Phone Unavailable Allergies, Adverse Reactions, Alerts Allergy Name Reaction Description Start Date Severity Status Pr ovider PENICILLIN HIVES Critical Active Mitch Urbina DO Conditions or Problems Problem Name Problem Code Onset Date Status Entry Date Provider Comment Standard Description Annotate HYPERTENSION 401.9 Active Mitch Urbina DO U nspecified essential hypertension CELLULITIS, GROIN, LEFT 682.2 Resolved Mitch lusi DO Cellulitis and abscess of trunk SEROMA [...] vessel, cachil dehe or graft EDEMA 782.3 Resolved Mitch Urbina [...] tab to equal 7mg daily WARFARIN SODIUM 25256855228 Active Kathie Juan RPT,R MA Active COLCRYS 0.6 MG TABS 1 tab qid prn gout COLCHICINE 38514521363 Active Kathie Juan RPT,RMA Active INVOKANA 100 MG ORAL TABS 1 tablet orally daily CANAGLIFLOZIN 66441296240 Active Kathie Juan RPT,RMA Active MINOXIDIL 2.5 MG TABS 1 tablet daily for high blood pressure 10/23 MINOXIDIL 49527363441 Active Mitch Arnol Carlitos DO Active AMLODIPINE BESYLATE 5 MG TABS 1 tablet by mouth daily AMLODIPINE BESYLATE 20061945630 Active Domi Rivera MA Active MECLIZINE HCL 25 MG TAB 1 po tid 3 days, then 1/2 tab tid 3 days MECLIZINE HCL 42453344494 No Longer Active Corey SEGURA Active ALLOPURINOL 300 MG TABS Take 1 tablet by mouth daily 2 ALLOPURINOL 53015323253 No Longer Active Corey SEGURA Activ e CLONIDINE HCL 0.1 MG TABS 1 po bid 7 days, then 1/2 tab po b id 7 days CLONIDINE HCL 60128167981 No Longer Active Corey SEGURA Active COUMADIN 5 MG TABS 1 tab PO daily WARFARIN SODIUM 33923188985 Active Domi Rivera MA Active COUMADIN 4 MG TABS 1 tablet daily WARFARIN SODI UM 39350549178 No Longer Active Corey SEGURA Active POLYTRIM 70981-2.1 UNIT/ML-% SOLN 1 drop in affected e ye every 3 hours while awake x 7 days POLYMYXIN B-TRIMETHOPRIM 74174191986 N o Longer Active Corey SEGURA Active LOSARTAN POTASSIUM-HCTZ 100-12.5 MG TABS 1 by mouth da rocky for high blood pressure LOSARTAN POTASSIUM-HCTZ 55496932065 Active Domi Rivera MA Active LISINOPRIL-HYDROCHLOROTHIAZIDE 20-12.5 MG TABS 1 tab by mouth da rocky LISINOPRIL-HYDROCHLOROTHIAZIDE 74256608191 No Longer Active Mitch luis DO Active LISINOPRIL 20 MG TABS 1 tab po at HS LISINOPRIL 67345320874 No Longer Active Mitch Urbina DO Active COUMADIN 5 MG TABS 1 by mouth every other day WARFARIN SODIUM 80001709263 No Longer Active Mitch Urbina DO Active COUMADIN 6 MG TABS 1 by mouth every other day WARFARIN SODIUM 25204002090 No Longer Active Mitch Urbina DO Active SIMVASTATIN 40 MG TABS 1 tab daily at bedtime S IMVASTATIN 28084633295 Active Domi Rivera MA Active SIMVASTATIN 20 MG TABS 1 tab daily at bedtime S IMVASTATIN 75692386601 No Longer Active Mitch Urbina DO Active LOVENOX 100 MG/ML SC SOLN One injection twice a day 09/15/15 ENOXAPARIN SODIUM 50480998866 No Longer Active Carmine Navarrete ctive JANUVIA 50 MG TABS Take one by mouth daily DIEGO GLIPTIN PHOSPHATE 17135078049 Active Domi Rivera MA Active JANUVIA 100 MG TABS 1/2 by mouth every day DIEGO GLIPTIN PHOSPHATE 82584754487 No Longer Active Bijal Segal RN Active METFORMIN HCL 500 MG TABS 2 by mouth twice daily METFORMIN HCL 86770306652 Active Mitch Urbina DO Active GLIMEPIRIDE 4 MG TABS 1 tab po bid GLIMEPIRIDE 785670 15283 Active Mitch Urbina DO Active COLCRYS 0.6 MG TABS 1 po q 6 hours prn gout pain 03/02 COLCHICINE 97555822570 No Longer Active Camila Reese Active LISINOPRIL 5 MG TABS 1 by mouth every day LISIN OPRIL 23209328710 No Longer Active Nguyen Perez Active KLOR-CON 20 MEQ PACK Take one by mouth daily 8 POTASSIUM CHLORIDE 55547346678 No Longer Active Nguyenmolly Perez Active FUROSEMIDE 40 MG TABS 1 by mouth daily FUROSEMI DE 28903342514 No Longer Active Nguyenmolly Perez Active PROVIGIL 200 MG TABS 1/2 tab po q day MODAFINIL 56318 790767 Active Domi Rivera MA Active PROVIGIL 100 MG TABS Take one by mouth daily MO DAFINIL 38376619927 No Longer Active Mitch Urbnia DO Active BACTRIM DS 800-160 MG TAB 1 tab by mouth twice daily 2 TRIMETHOPRIM-SULFAMETHOXAZOLE 01641614351 No Longer Active Renan Hays MD Active FAMOTIDINE 20 MG TABS by mouth twice a day FAMOTI DINE 44844724941 Active Mitch Urbina DO Active ADULT ASPIRIN LOW STRENGTH 81 MG TBDP 1 by mouth every daily ASPIRIN 49293276134 Active Mitch Urbina DO Active METOPROLOL TARTRATE 50 MG TABS 1 by mouth twice daily METOPROLOL TARTRATE 91477845212 Active Domi Rivera MA Active BACTRIM DS 800-160 MG TAB 1 tab by mouth twice daily 2 BACTRIM DS 800-160 MG TAB 953080 TRIMETHOPRIM-SULFAMETHOXAZOLE Inac tive PROVIGIL 100 MG TABS Take one by mouth daily 4 PROVIGIL 100 MG TABS 239998 MODAFINIL Inactive FUROSEMIDE 40 MG TABS 1 by mouth daily FU ROSEMIDE 40 MG TABS 755663 FUROSEMIDE Inactive KLOR-CON 20 MEQ PACK Take one by mouth daily 8 KLOR-CON 20 MEQ PACK 815499 POTASSIUM CHLORIDE Inactive LISINOPRIL 5 MG TABS 1 by mouth every day LISINOPRIL 5 MG TABS 302165 LISINOPRIL Inactive COLCRYS 0.6 MG TABS 1 po q 6 hours prn gout pain 03/02 COLCRYS 0.6 MG TABS 260512 COLCHICINE Inactive JANUVIA 100 MG TABS 1/2 by mouth every day JANUVI A 100 MG TABS SITAGLIPTIN PHOSPHATE Inactive SIMVASTATIN 20 MG TABS 1 tab daily at bedtime SIMVASTATIN 20 MG TABS 941689 SIMVASTATIN Inactive COUMADIN 6 MG TABS 1 by mouth every other day COUMADIN 6 MG TABS 073426 WARFARIN SODIUM Inactive COUMADIN 5 MG TABS 1 by mouth every other day COUMADIN 5 MG TABS 682802 WARFARIN SODIUM Inactive LISINOPRIL 20 MG TABS 1 tab po at HS KOKI NOPRIL 20 MG TABS 121194 LISINOPRIL Inactive LISINOPRIL-HYDROCHLOROTHIAZIDE 20-12.5 MG TABS 1 tab by mouth da rocky LISINOPRIL-HYDROCHLOROTHIAZIDE 20-12.5 MG TABS 776596 LISINOPRIL-HYDROCHLOROTHIAZIDE Inactive POLYTRIM 75874-6.1 UNIT/ML-% SOLN 1 drop in affected e ye every 3 hours while awake x 7 days POLYTRIM 59391-1.1 UNIT/ML-% SOLN 64094 7 POLYMYXIN B-TRIMETHOPRIM Inactive COUMADIN 4 MG TABS 1 tablet daily COUMADIN 4 MG TABS 264283 WARFARIN SODIUM Inactive CLONIDINE HCL 0.1 MG TABS 1 po bid 7 days, then 1/2 tab po b id 7 days CLONIDINE HCL 0.1 MG TABS 767179 CLONIDINE HCL I nactive ALLOPURINOL 300 MG TABS Take 1 tablet by mouth daily 2 ALLOPURINOL 300 MG TABS 789752 ALLOPURINOL Inactive MECLIZINE HCL 25 MG TAB 1 po tid 3 days, then 1/2 tab tid 3 days MECLIZINE HCL 25 MG TAB 587959 MECLIZINE HCL Inactive LOVENOX 100 MG/ML SC SOLN One injection twice a day 20 09/15/15 LOVENOX 100 MG/ML SC SOLN 521984 ENOXAPARIN SODIUM Inactive Vital Signs Date Name [...] - Chem istry sodium, serum 136 mmol/L 442-746 7724/01/14 carbon dioxide, venous blood 25.4 mmol/L 21.0-32 [...] 1.0-3.5 Encounters Code Encounter Date Provider Facility CPT-81262 Level 3 Est. Patient 09:34:30 ROAD TEST EXAMINER Mitch luis [facility] CPT-36523 Level 3 Est. Patient 09:37:15 CDT Mitch luis [facility] CPT-57518 Level 3 Est. Patient 17:01:00 ROAD TEST EXAMINER Mitch luis [facility] CPT-45498 Level 3 Est. Patient 13:53:19 ROAD TEST EXAMINER Mitch luis [facility] CPT-34772 Level 3 Est. Patient 19:19:37 ROAD TEST EXAMINER Mitch luis [facility] CPT-25625 Level 3 Est. Patient 13:25:53 ROAD TEST EXAMINER Tavo toure MD [facility] CPT-20022 Level 3 Est. Patient 18:17:[address] [facility] CPT-83020 Level 3 Est. Patient 15:22:57 CDT Mitch luis [facility]-40079 Level 3 Est. Patient 18:21:50 CDT Mitch luis [facility] CPT-54259 Level 3 Est. Patient 18:20:38 CDT Mitch luis [facility] CPT-62270 Level 3 Est. Patient 15:37:[address] [facility] CPT-49013 Level 2 Est. Patient 15:54:44 CDT Carmine benton MD [facility]-75450 Level 3 Est. Patient 21:46:01 ROAD TEST EXAMINER Mitch luis [facility] CPT-10757 Level 3 Est. Patient 22:15:[address] [facility] CPT-08951 Level 3 Est. Patient 10:48:15 CDT Mitch Arnol L janelle [facility] CPT-79449 Level 3 Est. Patient 23:20:57 CDT Tavo toure MD [facility] CPT-52274 Level 3 Est. Patient 16:26:13 CDT Mitch Castellano janelle [facility] Procedures Code Procedure Name Date Entry Date Standard Desc ription CPT-12568 Venipuncture Draw Fee 11:09:14 CDT CPT-66523 Venipuncture Draw Fee 08:32:21 ROAD TEST EXAMINER CPT-41011 Venipuncture Draw Fee 09:38:56 ROAD TEST EXAMINER CPT-98304 No Charge Offi Visit 21:36:07 CDT 1 CPT-94929 Venipuncture Draw Fee 10:13:28 ROAD TEST EXAMINER CPT-70738 Venipuncture Draw Fee 08:31:11 CDT CPT-17115 Aspir/Inject Med Joint 18:17:28 CDT CPT-49765 Venipuncture Draw Fee 10:13:30 CDT CPT-15337 Venipuncture Draw Fee 08:31:43 ROAD TEST EXAMINER CPT-JTINJ Joint Injection 18:34:50 CDT CPT-90234 Knee 3V 12:25:09 CDT CPT-92617 Venipuncture Draw Fee 12:15:57 CDT CPT-060 Medical Surveillance Exam 21:31:43 CDT 2011 CPT-14170 Venipuncture Draw Fee 08:32:05 ROAD TEST EXAMINER CPT-OV Office Visit 18:19:06 CDT
--- OUTSIDE RECORDS SUMMARY | 2020-01-18 13:20 | XMS REPORT | Clinical Summary ---
[...] Coronary atherosclerosis of unspecified type of vessel, hoh or graft EDEMA 782.3 Resolved Mitch Urbina [...] daily for high blood pressure 10/23 MINOXIDIL 05455922666 Active Mitch Urbina DO Active AMLODIPINE BESYLATE 5 MG TABS 1 tablet by mouth daily AMLODIPINE BESYLATE 30565561552 Active Domi Rivera MA Active MECLIZINE HCL 25 MG TAB 1 po tid 3 days, then 1/2 tab tid 3 days MECLIZINE HCL 55161680779 No Longer Active Corey SEGURA Active ALLOPURINOL 300 MG TABS Take 1 tablet by mouth daily 2 ALLOPURINOL 85069193388 No Longer Active Corey SEGURA Activ e CLONIDINE HCL 0.1 MG TABS 1 po bid 7 days, then 1/2 tab po b id 7 days CLONIDINE HCL 34573278360 No Longer Active Corey SEGURA Active COUMADIN 5 MG TABS 1 tab PO daily WARFARIN SODIUM 24862554941 Active Mitch Urbina DO Active COUMADIN 4 MG TABS 1 tablet daily WARFARIN SODI UM 38199851648 No Longer Active Corey SEGURA Active POLYTRIM 54730-8.1 UNIT/ML-% SOLN 1 drop in affected e ye every 3 hours while awake x 7 days POLYMYXIN B-TRIMETHOPRIM 75472368999 N o Longer Active Corey SEGURA Active LOSARTAN POTASSIUM-HCTZ 100-12.5 MG TABS 1 by mouth da rocky for high blood pressure LOSARTAN POTASSIUM-HCTZ 97387147893 Active Stephy Urbina DO Active LISINOPRIL-HYDROCHLOROTHIAZIDE 20-12.5 MG TABS 1 tab by mouth da rocky LISINOPRIL-HYDROCHLOROTHIAZIDE 67096107834 No Longer Active Mitch luis DO Active LISINOPRIL 20 MG TABS 1 tab po at HS LISINOPRIL 03834571187 No Longer Active Mitch Urbina DO Active COUMADIN 5 MG TABS 1 by mouth every other day WARFARIN SODIUM 38656081349 No Longer Active Mitch Urbina DO Active COUMADIN 6 MG TABS 1 by mouth every other day WARFARIN SODIUM 80097587879 No Longer Active Mitch Urbina DO Active COLCRYS 0.6 MG TABS 1 tab qid prn gout COLCHICINE 41737561229 Active Corey SEGURA Active SIMVASTATIN 40 MG TABS 1 tab daily at bedtime S IMVASTATIN 16999465889 Active Domi Rivera MA Active SIMVASTATIN 20 MG TABS 1 tab daily at bedtime S IMVASTATIN 06824315500 No Longer Active Mitch Urbina DO Active LOVENOX 100 MG/ML SC SOLN One injection twice a day 09/15/15 ENOXAPARIN SODIUM 74028914619 No Longer Active Carmine Yusuf MD A ctive JANUVIA 50 MG TABS Take one by mouth daily DIEGO GLIPTIN PHOSPHATE 95403355206 Active Kathie Juan RPT,RMA Active JANUVIA 100 MG TABS 1/2 by mouth every day DIEGO GLIPTIN PHOSPHATE 88306171809 No Longer Active Bijal Segal RN Active METFORMIN HCL 500 MG TABS 2 by mouth twice daily METFORMIN HCL 95005308249 Active Mitch Urbina DO Active GLIMEPIRIDE 4 MG TABS 1 tab po bid GLIMEPIRIDE 902855 37147 Active Mitch Urbina DO Active COLCRYS 0.6 MG TABS 1 po q 6 hours prn gout pain 03/02 COLCHICINE 48564916117 No Longer Active Camila Reese Active LISINOPRIL 5 MG TABS 1 by mouth every day LISIN OPRIL 71348703887 No Longer Active Nguyenmolly Perez Active KLOR-CON 20 MEQ PACK Take one by mouth daily 8 POTASSIUM CHLORIDE 32503501884 No Longer Active Nguyenmolly Perez Active FUROSEMIDE 40 MG TABS 1 by mouth daily FUROSEMI DE 25446111759 No Longer Active Nguyenmolly Perez Active PROVIGIL 200 MG TABS 1/2 tab po q day MODAFINIL 67901 343893 Active Kathie Juan RPT,RMA Active PROVIGIL 100 MG TABS Take one by mouth daily MO DAFINIL 89393255670 No Longer Active Mitch Urbina DO Active BACTRIM DS 800-160 MG TAB 1 tab by mouth twice daily TRIMETHOPRIM-SULFAMETHOXAZOLE 74975394195 No Longer Active Renan Hays MD Active FAMOTIDINE 20 MG TABS by mouth twice a day FAMOTI DINE 45409769225 Active Mitch Urbina DO Active ADULT ASPIRIN LOW STRENGTH 81 MG TBDP 1 by mouth every daily ASPIRIN 84447306045 Active Mitch Urbina DO Active METOPROLOL TARTRATE 50 MG TABS 1 by mouth twice daily METOPROLOL TARTRATE 83570059989 Active Kathiemargarita Juan RPT,RMA Acti ve BACTRIM DS 800-160 MG TAB 1 tab by mouth twice daily 2 BACTRIM DS 800-160 MG TAB 728651 TRIMETHOPRIM-SULFAMETHOXAZOLE Inac tive PROVIGIL 100 MG TABS Take one by mouth daily 4 PROVIGIL 100 MG TABS 058579 MODAFINIL Inactive FUROSEMIDE 40 MG TABS 1 by mouth daily FU ROSEMIDE 40 MG TABS 607656 FUROSEMIDE Inactive KLOR-CON 20 MEQ PACK Take one by mouth daily 8 KLOR-CON 20 MEQ PACK 022472 POTASSIUM CHLORIDE Inactive LISINOPRIL 5 MG TABS 1 by mouth every day LISINOPRIL 5 MG TABS 916665 LISINOPRIL Inactive COLCRYS 0.6 MG TABS 1 po q 6 hours prn gout pain 03/02 COLCRYS 0.6 MG TABS 496888 COLCHICINE Inactive JANUVIA 100 MG TABS 1/2 by mouth every day JANUVI A 100 MG TABS SITAGLIPTIN PHOSPHATE Inactive SIMVASTATIN 20 MG TABS 1 tab daily at bedtime SIMVASTATIN 20 MG TABS 632822 SIMVASTATIN Inactive COUMADIN 6 MG TABS 1 by mouth every other day COUMADIN 6 MG TABS 688909 WARFARIN SODIUM Inactive COUMADIN 5 MG TABS 1 by mouth every other day COUMADIN 5 MG TABS 150631 WARFARIN SODIUM Inactive LISINOPRIL 20 MG TABS 1 tab po at HS KOKI NOPRIL 20 MG TABS 608502 LISINOPRIL Inactive LISINOPRIL-HYDROCHLOROTHIAZIDE 20-12.5 MG TABS 1 tab by mouth da rocky LISINOPRIL-HYDROCHLOROTHIAZIDE 20-12.5 MG TABS 403110 LISINOPRIL-HYDROCHLOROTHIAZIDE Inactive POLYTRIM 53439-6.1 UNIT/ML-% SOLN 1 drop in affected e ye every 3 hours while awake x 7 days POLYTRIM 78584-1.1 UNIT/ML-% SOLN 94375 7 POLYMYXIN B-TRIMETHOPRIM Inactive COUMADIN 4 MG TABS 1 tablet daily COUMADIN 4 MG TABS 158312 WARFARIN SODIUM Inactive CLONIDINE HCL 0.1 MG TABS 1 po bid 7 days, then 1/2 tab po b id 7 days CLONIDINE HCL 0.1 MG TABS 026931 CLONIDINE HCL I nactive ALLOPURINOL 300 MG TABS Take 1 tablet by mouth daily 2 ALLOPURINOL 300 MG TABS 210014 ALLOPURINOL Inactive MECLIZINE HCL 25 MG TAB 1 po tid 3 days, then 1/2 tab tid 3 days MECLIZINE HCL 25 MG TAB 555901 MECLIZINE HCL Inactive LOVENOX 100 MG/ML SC SOLN One injection twice a day 09/15/15 LOVENOX 100 MG/ML SC SOLN 506345 ENOXAPARIN SODIUM Inactive Vital Signs Date Name [...] Ag - Chemistry sodium, serum 141 mmol/L 405-178 3482/07/06 potassium, serum 4.4 mmol/L 3.5-5.2 chloride, serum [...] 7.0 % 4.3-6.0 cholesterol, serum 120 mg/dL 570-968 7668/07/06 triglyceride, serum, fasting 186 mg/dL 30-200 HDL [...] 18.6 SECS s 11.1-13.4 prothrombin time (patient) 18.6 [...] 1.0-3.5 Encounters Code Encounter Date Provider Facility CPT-85605 Level 3 Est. Patient 09:34:30 ART MUSEUM AIDE Mitch luis [facility] CPT-32625 Level 3 Est. Patient 09:37:15 CDT Mitch luis [facility] CPT-28897 Level 3 Est. Patient 17:01:00 ART MUSEUM AIDE Mitch luis DO [facility] CPT-77123 Level 3 Est. Patient 13:53:19 ART MUSEUM AIDE Mitch luis [facility] CPT-77977 Level 3 Est. Patient 19:19:37 ART MUSEUM AIDE Mitch luis [facility] CPT-99340 Level 3 Est. Patient 13:25:53 ART MUSEUM AIDE Tavo toure MD [facility] CPT-46551 Level 3 Est. Patient 18:17:28 CDT Mitch luis [facility] CPT-92261 Level 3 Est. Patient 15:22:57 CDT Mitch Arnol L janelle [facility] CPT-48718 Level 3 Est. Patient 18:21:50 CDT Mitch luis [facility] CPT-38948 Level 3 Est. Patient 18:20:38 CDT Mitch luis [facility] CPT-10718 Level 3 Est. Patient 15:37:55 CDT Mitch luis [facility] CPT-75240 Level 2 Est. Patient 15:54:44 CDT Carmine benton MD [facility] CPT-03345 Level 3 Est. Patient 21:46:01 ART MUSEUM AIDE Mitch luis [facility] CPT-35472 Level 3 Est. Patient 22:15:50 CDT Mitch luis [facility] CPT-41562 Level 3 Est. Patient 10:48:15 CDT Mitch luis [facility] CPT-13867 Level 3 Est. Patient 23:20:57 CDT Tavo toure MD [facility] CPT-67622 Level 3 Est. Patient 16:26:13 CDT Mitch Arnol L janelle [facility] Procedures Code Procedure Name Date Entry Date Standard Desc ription CPT-33154 Venipuncture Draw Fee 09:38:56 ART MUSEUM AIDE CPT-29333 No Charge Offi Visit 21:36:07 CDT 1 CPT-68912 Venipuncture Draw Fee 10:13:28 ART MUSEUM AIDE CPT-33600 Venipuncture Draw Fee 08:31:11 CDT CPT-62801 Aspir/Inject Med Joint 18:17:28 CDT CPT-72765 Venipuncture Draw Fee 10:13:30 CDT CPT-73813 Venipuncture Draw Fee 08:31:43 ART MUSEUM AIDE CPT-JTINJ Joint Injection 18:34:50 CDT CPT-77407 Knee 3V 12:25:09 CDT CPT-76244 Venipuncture Draw Fee 12:15:57 CDT CPT-060 Medical Surveillance Exam 21:31:43 CDT 2011 CPT-59458 Venipuncture Draw Fee 08:32:05 ART MUSEUM AIDE CPT-OV Office Visit 18:19:06 CDT
--- OUTSIDE RECORDS SUMMARY | 2020-01-18 13:21 | XMS REPORT | Clinical Summary ---
[...] Coronary atherosclerosis of unspecified type of vessel, [place] or graft EDEMA 782.3 Active Mitch Urbina [...] 1 tablet by mouth daily AMLODIPINE BESYLATE 07333800512 Active Mitch Urbina DO Active MECLIZINE HCL 25 MG TAB 1 po tid 3 days, then 1/2 tab tid 3 days MECLIZINE HCL 66797360696 No Longer Active Corey SEGURA Active ALLOPURINOL 300 MG TABS Take 1 tablet by mouth daily 2 ALLOPURINOL 64703456072 No Longer Active Corey SEGURA Activ e CLONIDINE HCL 0.1 MG TABS 1 po bid 7 days, then 1/2 tab po b id 7 days CLONIDINE HCL 77134470792 No Longer Active Corey SEGURA Active COUMADIN 5 MG TABS 1 tab PO daily WARFARIN SODIUM 14301738272 Active Mitch Urbina DO Active COUMADIN 4 MG TABS 1 tablet daily WARFARIN SODI UM 40026577739 No Longer Active Corey SEGURA Active POLYTRIM 40070-4.1 UNIT/ML-% SOLN 1 drop in affected e ye every 3 hours while awake x 7 days POLYMYXIN B-TRIMETHOPRIM 85497000848 N o Longer Active Corey SEGURA Active LOSARTAN POTASSIUM-HCTZ 100-12.5 MG TABS 1 by mouth da rocky for high blood pressure LOSARTAN POTASSIUM-HCTZ 77214573331 Active Stephy Urbina DO Active LISINOPRIL-HYDROCHLOROTHIAZIDE 20-12.5 MG TABS 1 tab by mouth da rocky LISINOPRIL-HYDROCHLOROTHIAZIDE 93920622505 No Longer Active Mitch luis DO Active LISINOPRIL 20 MG TABS 1 tab po at HS LISINOPRIL 99294456938 No Longer Active Mitch Urbina DO Active COUMADIN 5 MG TABS 1 by mouth every other day WARFARIN SODIUM 64781803920 No Longer Active Mitch Urbina DO Active COUMADIN 6 MG TABS 1 by mouth every other day WARFARIN SODIUM 74469671373 No Longer Active Mitch Urbina DO Active COLCRYS 0.6 MG TABS 1 tab qid prn gout COLCHICINE 38139151755 Active Corey SEGURA Active SIMVASTATIN 40 MG TABS 1 tab daily at bedtime S IMVASTATIN 50987915575 Active Mitch Urbina DO Active SIMVASTATIN 20 MG TABS 1 tab daily at bedtime S IMVASTATIN 06114448276 No Longer Active Mitch Urbina DO Active LOVENOX 100 MG/ML SC SOLN One injection twice a day 09/15/15 ENOXAPARIN SODIUM 04199519540 No Longer Active Carmine D Reasnor MD A ctive JANUVIA 50 MG TABS Take one by mouth daily DIEGO GLIPTIN PHOSPHATE 32670261430 Active Mitch Urbina DO Active JANUVIA 100 MG TABS 1/2 by mouth every day DIEGO GLIPTIN PHOSPHATE 43939535838 No Longer Active Bijalseth Segal RN Active METFORMIN HCL 500 MG TABS 2 by mouth twice daily METFORMIN HCL 52382493650 Active Corey Arias PA Active GLIMEPIRIDE 4 MG TABS 1 tab po bid GLIMEPIRIDE 902156 97488 Active Mitch Urbina DO Active COLCRYS 0.6 MG TABS 1 po q 6 hours prn gout pain 03/02 COLCHICINE 81629008435 No Longer Active Camila Reese Active LISINOPRIL 5 MG TABS 1 by mouth every day LISIN OPRIL 07031528764 No Longer Active Nguyen Perez Active KLOR-CON 20 MEQ PACK Take one by mouth daily 8 POTASSIUM CHLORIDE 69012496260 No Longer Active Nguyen Perez Active FUROSEMIDE 40 MG TABS 1 by mouth daily FUROSEMI DE 13520437808 No Longer Active Nguyen Perez Active PROVIGIL 200 MG TABS 1/2 tab po q day MODAFINIL 60986 895577 Active Mitch Urbina DO Active PROVIGIL 100 MG TABS Take one by mouth daily MO DAFINIL 14653145643 No Longer Active Mitch Urbina DO Active BACTRIM DS 800-160 MG TAB 1 tab by mouth twice daily 2 TRIMETHOPRIM-SULFAMETHOXAZOLE 75778092020 No Longer Active Renan Hays MD Active FAMOTIDINE 20 MG TABS by mouth twice a day FAMOTI DINE 49550040008 Active Mithc Urbina DO Active ADULT ASPIRIN LOW STRENGTH 81 MG TBDP 1 by mouth every daily ASPIRIN 77144526707 Active Mitch Urbina DO Active METOPROLOL TARTRATE 50 MG TABS 1 by mouth twice daily METOPROLOL TARTRATE 02397925532 Active Curly Coker MD Active BACTRIM DS 800-160 MG TAB 1 tab by mouth twice daily 2 BACTRIM DS 800-160 MG TAB TRIMETHOPRIM-SULFAMETHOXAZOLE Inac tive PROVIGIL 100 MG TABS Take one by mouth daily 4 PROVIGIL 100 MG TABS 222593 MODAFINIL Inactive FUROSEMIDE 40 MG TABS 1 by mouth daily FU ROSEMIDE 40 MG TABS 905324 FUROSEMIDE Inactive KLOR-CON 20 MEQ PACK Take one by mouth daily 8 KLOR-CON 20 MEQ PACK 947804 POTASSIUM CHLORIDE Inactive LISINOPRIL 5 MG TABS 1 by mouth every day LISINOPRIL 5 MG TABS 189706 LISINOPRIL Inactive COLCRYS 0.6 MG TABS 1 po q 6 hours prn gout pain 03/02 COLCRYS 0.6 MG TABS 865957 COLCHICINE Inactive JANUVIA 100 MG TABS 1/2 by mouth every day JANUVI A 100 MG TABS SITAGLIPTIN PHOSPHATE Inactive SIMVASTATIN 20 MG TABS 1 tab daily at bedtime SIMVASTATIN 20 MG TABS 308718 SIMVASTATIN Inactive COUMADIN 6 MG TABS 1 by mouth every other day COUMADIN 6 MG TABS 947490 WARFARIN SODIUM Inactive COUMADIN 5 MG TABS 1 by mouth every other day COUMADIN 5 MG TABS 707669 WARFARIN SODIUM Inactive LISINOPRIL 20 MG TABS 1 tab po at HS KOKI NOPRIL 20 MG TABS 898794 LISINOPRIL Inactive LISINOPRIL-HYDROCHLOROTHIAZIDE 20-12.5 MG TABS 1 tab by mouth da rocky LISINOPRIL-HYDROCHLOROTHIAZIDE 20-12.5 MG TABS 304685 LISINOPRIL-HYDROCHLOROTHIAZIDE Inactive POLYTRIM 22817-1.1 UNIT/ML-% SOLN 1 drop in affected e ye every 3 hours while awake x 7 days POLYTRIM 96458-7.1 UNIT/ML-% SOLN 99840 7 POLYMYXIN B-TRIMETHOPRIM Inactive COUMADIN 4 MG TABS 1 tablet daily COUMADIN 4 MG TABS 057565 WARFARIN SODIUM Inactive CLONIDINE HCL 0.1 MG TABS 1 po bid 7 days, then 1/2 tab po b id 7 days CLONIDINE HCL 0.1 MG TABS 334952 CLONIDINE HCL I nactive ALLOPURINOL 300 MG TABS Take 1 tablet by mouth daily 2 ALLOPURINOL 300 MG TABS 803166 ALLOPURINOL Inactive MECLIZINE HCL 25 MG TAB 1 po tid 3 days, then 1/2 tab tid 3 days MECLIZINE HCL 25 MG TAB 295623 MECLIZINE HCL Inactive LOVENOX 100 MG/ML SC SOLN One injection twice a day 09/15/15 LOVENOX 100 MG/ML SC SOLN 359710 ENOXAPARIN SODIUM Inactive Vital Signs Date Name [...] Acid - Chemistry sodium, serum 136 mmol/L 822-311 6357/07/25 potassium, serum 4.6 mmol/L 3.5-5.2 chloride, serum [...] Ag - Chemistry sodium, serum 141 mmol/L 225-725 7227/07/06 potassium, serum 4.4 mmol/L 3.5-5.2 chloride, serum [...] Panel - Chemistry sodium, serum 137 mmol/L 853-267 7473/11/14 potassium, serum 4.4 mmol/L 3.5-5.2 chloride, serum [...] 8.0 % 4.3-6.0 cholesterol, serum 130 mg/dL 202-361 0462/11/14 triglyceride, serum, fasting 288 mg/dL 30-200 HDL cholesterol, serum 33 mg/dL 32-96 LDL cholesterol, serum 39 mg/dL 0-130 Lab Report: Comp. Metabolic Panel, HGBA1 C, Lipid Panel, Prothrombin Time - Chemistry sodium, serum 136 mmol/L 673-708 9739/12/02 potassium, serum 4.4 mmol/L 3.5-5.2 chloride, serum [...] 7.6 % 4.3-6.0 cholesterol, serum 117 mg/dL 737-560 5036/12/02 triglyceride, serum, fasting 226 mg/dL 30-200 HDL [...] 7.0 % 4.3-6.0 cholesterol, serum 120 mg/dL 450-830 6433/07/06 triglyceride, serum, fasting 186 mg/dL 30-200 HDL [...] 1.0-3.5 Encounters Code Encounter Date Provider Facility CPT-32987 Level 3 Est. Patient 09:37:15 CDT Mitch luis DO [facility] CPT-77088 Level 3 Est. Patient 17:01:00 FULFILLMENT COORDINATOR Mitch luis [facility] CPT-27224 Level 3 Est. Patient 13:53:19 FULFILLMENT COORDINATOR Mitch luis [facility] CPT-80673 Level 3 Est. Patient 19:19:37 FULFILLMENT COORDINATOR Mitch luis [facility] CPT-11916 Level 3 Est. Patient 13:25:53 FULFILLMENT COORDINATOR Tavo toure MD [facility] CPT-30596 Level 3 Est. Patient 18:17:28 CDT Mitch luis [facility] CPT-80721 Level 3 Est. Patient 15:22:57 CDT Mitch luis [facility] CPT-27081 Level 3 Est. Patient 18:21:50 CDT Mitch luis [facility] CPT-16537 Level 3 Est. Patient 18:20:38 CDT Mitch luis [facility] CPT-59419 Level 3 Est. Patient 15:37:55 CDT Mitch Arnol luis [facility] CPT-52136 Level 2 Est. Patient 15:54:44 CDT Carmine benton MD [facility]-61063 Level 3 Est. Patient 21:46:01 FULFILLMENT COORDINATOR Mitch luis [facility] CPT-93519 Level 3 Est. Patient 22:15:50 CDT Mitch luis [facility] CPT-45033 Level 3 Est. Patient 10:48:15 CDT Mitch Arnol L janelle [facility] CPT-52806 Level 3 Est. Patient 23:20:57 CDT Tavo toure MD [facility] CPT-48918 Level 3 Est. Patient 16:26:13 CDT Mitch Castellano janelle [facility] Procedures Code Procedure Name Date Entry Date Standard Desc ription CPT-46873 Venipuncture Draw Fee 10:13:28 FULFILLMENT COORDINATOR CPT-24041 Venipuncture Draw Fee 08:31:11 CDT CPT-64358 Aspir/Inject Med Joint 18:17:28 CDT CPT-69256 Venipuncture Draw Fee 10:13:30 CDT CPT-71915 Venipuncture Draw Fee 08:31:43 FULFILLMENT COORDINATOR CPT-JTINJ Joint Injection 18:34:50 CDT CPT-16926 Knee 3V 12:25:09 CDT CPT-18658 Venipuncture Draw Fee 12:15:57 CDT CPT-060 Medical Surveillance Exam 21:31:43 CDT 2011 CPT-81392 Venipuncture Draw Fee 08:32:05 FULFILLMENT COORDINATOR CPT-OV Office Visit 18:19:06 CDT
--- OUTSIDE RECORDS SUMMARY | 2020-01-18 13:21 | XMS REPORT | Clinical Summary ---
[...] use of anticoagulants Valve replacement V43.3 Active Mithc Arnol Urbina DO Heart valve replaced by [...] ( 6mg total ) 2015 WARFARIN SODIUM 13881172499 Active Jannette Alcides RMA Act juan INVOKANA 100 MG ORAL TABS 1 tablet orally daily CANAGLIFLOZIN 16997427392 Active Kathie Juan RPT,RMA Active MINOXIDIL 2.5 MG TABS 1 tablet daily for high blood pressure 10/23 MINOXIDIL 51330662570 Active Mitch Urbina DO Active AMLODIPINE BESYLATE 5 MG TABS 1 tablet by mouth daily AMLODIPINE BESYLATE 08375210711 Active Domi Rivera MA Active MECLIZINE HCL 25 MG TAB 1 po tid 3 days, then 1/2 tab tid 3 days MECLIZINE HCL 04922812541 No Longer Active Corey SEGURA Active ALLOPURINOL 300 MG TABS Take 1 tablet by mouth daily 2 ALLOPURINOL 14987076127 No Longer Active Corey SEGURA Activ e CLONIDINE HCL 0.1 MG TABS 1 po bid 7 days, then 1/2 tab po b id 7 days CLONIDINE HCL 65434695451 No Longer Active Corey SEGURA Active COUMADIN 5 MG TABS 1 tab PO daily WARFARIN SODIUM 31777453675 Active Domi Rivera MA Active COUMADIN 4 MG TABS 1 tablet daily WARFARIN SODI UM 84422496514 No Longer Active Corey SEGURA Active POLYTRIM 50666-4.1 UNIT/ML-% SOLN 1 drop in affected e ye every 3 hours while awake x 7 days POLYMYXIN B-TRIMETHOPRIM 12088819511 N o Longer Active Corey SEGURA Active LOS[place]AN POTASSIUM-HCTZ 100-12.5 MG TABS 1 by mouth [place] for high blood pressure LOSARTAN POTASSIUM-HCTZ 07634036001 Active Domi Rivera MA Active LISINOPRIL-HYDROCHLOROTHIAZIDE 20-12.5 MG TABS 1 tab by mouth da [place] LISINOPRIL-HYDROCHLOROTHIAZIDE 49040389698 No Longer Active Mitch luis DO Active LISINOPRIL 20 MG TABS 1 tab po at HS LISINOPRIL 49719207105 No Longer Active Mitch Urbina DO Active COUMADIN 5 MG TABS 1 by mouth every other day WARFARIN SODIUM 69926589317 No Longer Active Mitch Urbina DO Active COUMADIN 6 MG TABS 1 by mouth every other day WARFARIN SODIUM 49850841531 No Longer Active Mitch Urbina DO Active COLCRYS 0.6 MG TABS 1 tab qid prn gout COLCHICINE 61682939815 Active Corey SEGURA Active SIMVASTATIN 40 MG TABS 1 tab daily at bedtime S IMVASTATIN 93657853348 Active Domi Rivera MA Active SIMVASTATIN 20 MG TABS 1 tab daily at bedtime S IMVASTATIN 86239711115 No Longer Active Mitch Urbina DO Active LOVENOX 100 MG/ML SC SOLN One injection twice a day 09/15/15 ENOXAPARIN SODIUM 57329494345 No Longer Active Carmine Navarrete ctive JANUVIA 50 MG TABS Take one by mouth daily DIEGO GLIPTIN PHOSPHATE 28779156013 Active Domi Rivera MA Active JANUVIA 100 MG TABS 1/2 by mouth every day DIEGO GLIPTIN PHOSPHATE 83637747701 No Longer Active Bijal Segal RN Active METFORMIN HCL 500 MG TABS 2 by mouth twice daily METFORMIN HCL 09815908611 Active Domi Rivera MA Active GLIMEPIRIDE 4 MG TABS 1 tab po bid GLIMEPIRIDE 322494 94181 Active Domi Rivera MA Active COLCRYS 0.6 MG TABS 1 po q 6 hours prn gout pain 03/02 COLCHICINE 64531361668 No Longer Active Camila Reese Active LISINOPRIL 5 MG TABS 1 by mouth every day LISIN OPRIL 84067806445 No Longer Active Nguyen Perez Active KLOR-CON 20 MEQ PACK Take one by mouth daily 8 POTASSIUM CHLORIDE 04263344861 No Longer Active Nguyen Perez Active FUROSEMIDE 40 MG TABS 1 by mouth daily FUROSEMI DE 73022949251 No Longer Active Nguyenmolly Perez Active PROVIGIL 200 MG TABS 1/2 tab po q day MODAFINIL 93600 954799 Active Domi Rivera MA Active PROVIGIL 100 MG TABS Take one by mouth daily MO DAFINIL 11292580008 No Longer Active Mitch Urbina DO Active BACTRIM DS 800-160 MG TAB 1 tab by mouth twice daily 2 TRIMETHOPRIM-SULFAMETHOXAZOLE 53435607269 No Longer Active Renan Hays MD Active FAMOTIDINE 20 MG TABS by mouth twice a day FAMOTI DINE 37038944822 Active Mitch Urbina DO Active ADULT ASPIRIN LOW STRENGTH 81 MG TBDP 1 by mouth every daily ASPIRIN 56292347097 Active Mitch Urbina DO Active METOPROLOL TARTRATE 50 MG TABS 1 by mouth twice daily METOPROLOL TARTRATE 88165648432 Active Domi Rivera MA Active BACTRIM DS 800-160 MG TAB 1 tab by mouth twice daily 2 BACTRIM DS 800-160 MG TAB 886937 TRIMETHOPRIM-SULFAMETHOXAZOLE Inac tive PROVIGIL 100 MG TABS Take one by mouth daily 4 PROVIGIL 100 MG TABS 182085 MODAFINIL Inactive FUROSEMIDE 40 MG TABS 1 by mouth daily FU ROSEMIDE 40 MG TABS 604437 FUROSEMIDE Inactive KLOR-CON 20 MEQ PACK Take one by mouth daily 8 KLOR-CON 20 MEQ PACK 344379 POTASSIUM CHLORIDE Inactive LISINOPRIL 5 MG TABS 1 by mouth every day LISINOPRIL 5 MG TABS 495611 LISINOPRIL Inactive COLCRYS 0.6 MG TABS 1 po q 6 hours prn gout pain 03/02 COLCRYS 0.6 MG TABS 700243 COLCHICINE Inactive JANUVIA 100 MG TABS 1/2 by mouth every day JANUVI A 100 MG TABS SITAGLIPTIN PHOSPHATE Inactive SIMVASTATIN 20 MG TABS 1 tab daily at bedtime SIMVASTATIN 20 MG TABS 054807 SIMVASTATIN Inactive COUMADIN 6 MG TABS 1 by mouth every other day COUMADIN 6 MG TABS 759458 WARFARIN SODIUM Inactive COUMADIN 5 MG TABS 1 by mouth every other day COUMADIN 5 MG TABS 858035 WARFARIN SODIUM Inactive LISINOPRIL 20 MG TABS 1 tab po at HS KOKI NOPRIL 20 MG TABS 043868 LISINOPRIL Inactive LISINOPRIL-HYDROCHLOROTHIAZIDE 20-12.5 MG TABS 1 tab by mouth da rocky LISINOPRIL-HYDROCHLOROTHIAZIDE 20-12.5 MG TABS 714253 LISINOPRIL-HYDROCHLOROTHIAZIDE Inactive POLYTRIM 45225-9.1 UNIT/ML-% SOLN 1 drop in affected e ye every 3 hours while awake x 7 days POLYTRIM 71867-3.1 UNIT/ML-% SOLN 96323 7 POLYMYXIN B-TRIMETHOPRIM Inactive COUMADIN 4 MG TABS 1 tablet daily COUMADIN 4 MG TABS 389824 WARFARIN SODIUM Inactive CLONIDINE HCL 0.1 MG TABS 1 po bid 7 days, then 1/2 tab po b id 7 days CLONIDINE HCL 0.1 MG TABS 547192 CLONIDINE HCL I nactive ALLOPURINOL 300 MG TABS Take 1 tablet by mouth daily 2 ALLOPURINOL 300 MG TABS 457757 ALLOPURINOL Inactive MECLIZINE HCL 25 MG TAB 1 po tid 3 days, then 1/2 tab tid 3 days MECLIZINE HCL 25 MG TAB 534993 MECLIZINE HCL Inactive LOVENOX 100 MG/ML SC SOLN One injection twice a day 20 09/15/15 LOVENOX 100 MG/ML SC SOLN 783733 ENOXAPARIN SODIUM Inactive Vital Signs Date Name [...] Range Description Chart Maintenance: Hemoccult added to [facility] - Chemistry occult blood, stool (E&M) Positive [...] Ag - Chemistry sodium, serum 141 mmol/L 460-144 0729/07/06 potassium, serum 4.4 mmol/L 3.5-5.2 chloride, serum [...] - Chem istry sodium, serum 136 mmol/L 817-725 4250/01/14 carbon dioxide, venous blood 25.4 mmol/L 21.0-32 [...] 7.0 % 4.3-6.0 cholesterol, serum 120 mg/dL 906-628 4563/07/06 triglyceride, serum, fasting 186 mg/dL 30-200 HDL [...] 1.0-3.5 Encounters Code Encounter Date Provider Facility CPT-27261 Level 3 Est. 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 Patient 09:37:15 CDT Mitch luis [facility] CPT-94884 Level 3 Est. Patient 17:01:00 DIRECTOR OF FOOD AND NUTRITION Mitch luis [facility] CPT-52980 Level 3 Est. Patient 13:53:19 DIRECTOR OF FOOD AND NUTRITION Mitch luis [facility] CPT-16860 Level 3 Est. Patient 19:19:37 DIRECTOR OF FOOD AND NUTRITION Mitch luis [facility] CPT-93410 Level 3 Est. Patient 13:25:53 DIRECTOR OF FOOD AND NUTRITION Tavo toure MD [facility]-08749 Level 3 Est. Patient 18:17:[address] [facility] CPT-63568 Level 3 Est. Patient 15:22:57 CDT Mitch luis [facility] CPT-99738 Level 3 Est. Patient 18:21:50 CDT Mitch luis [facility] CPT-22766 Level 3 Est. Patient 18:20:38 CDT Mitch luis [facility] CPT-14391 Level 3 Est. Patient 15:37:[address] [facility] CPT-89227 Level 2 Est. Patient 15:54:44 CDT Carmine benton MD [facility]-06333 Level 3 Est. Patient 21:46:01 DIRECTOR OF FOOD AND NUTRITION Mitch luis [facility] CPT-09328 Level 3 Est. Patient 22:15:50 CDT Mitch Arnol L janelle [facility] CPT-66276 Level 3 Est. Patient 10:48:[address] [facility] CPT-30685 Level 3 Est. Patient 23:20:57 CDT Tavo toure MD [facility] CPT-64991 Level 3 Est. Patient 16:26:[address] [facility] Procedures Code Procedure Name Date Entry Date Standard Desc ription CPT-63558 Venipuncture Draw Fee 08:32:21 DIRECTOR OF FOOD AND NUTRITION CPT-38310 Venipuncture Draw Fee 09:38:56 DIRECTOR OF FOOD AND NUTRITION CPT-75869 No Charge Offi Visit 21:36:07 CDT 1 CPT-12255 Venipuncture Draw Fee 10:13:28 DIRECTOR OF FOOD AND NUTRITION CPT-05497 Venipuncture Draw Fee 08:31:11 CDT CPT-71407 Aspir/Inject Med Joint 18:17:28 CDT CPT-13822 Venipuncture Draw Fee 10:13:30 CDT CPT-08804 Venipuncture Draw Fee 08:31:43 DIRECTOR OF FOOD AND NUTRITION CPT-JTINJ Joint Injection 18:34:50 CDT CPT-46546 Knee 3V 12:25:09 CDT CPT-62712 Venipuncture Draw Fee 12:15:57 CDT CPT-060 Medical Surveillance Exam 21:31:43 CDT 2011 CPT-19885 Venipuncture Draw Fee 08:32:05 DIRECTOR OF FOOD AND NUTRITION CPT-OV Office Visit 18:19:06 CDT
--- OUTSIDE RECORDS SUMMARY | 2020-01-18 13:21 | XMS REPORT | Clinical Summary ---
[...] Coronary atherosclerosis of unspecified type of vessel, eagle or graft EDEMA 782.3 Active Mitch Urbina [...] 1 tablet by mouth daily AMLODIPINE BESYLATE 84874308184 Active Mitch Urbina DO Active MECLIZINE HCL 25 MG TAB 1 po tid 3 days, then 1/2 tab tid 3 days MECLIZINE HCL 88438576052 No Longer Active Corey SEGURA Active ALLOPURINOL 300 MG TABS Take 1 tablet by mouth daily 2 ALLOPURINOL 61569162650 No Longer Active Corey SEGURA Activ e CLONIDINE HCL 0.1 MG TABS 1 po bid 7 days, then 1/2 tab po b id 7 days CLONIDINE HCL 09901444932 No Longer Active Corey SEGURA Active COUMADIN 5 MG TABS 1 tab PO daily WARFARIN SODIUM 47327090690 Active Mitch Urbina DO Active COUMADIN 4 MG TABS 1 tablet daily WARFARIN SODI UM 38641657277 No Longer Active Corey SEGURA Active POLYTRIM 38697-3.1 UNIT/ML-% SOLN 1 drop in affected e ye every 3 hours while awake x 7 days POLYMYXIN B-TRIMETHOPRIM 51763147594 N o Longer Active Corey SEGURA Active LOSARTAN POTASSIUM-HCTZ 100-12.5 MG TABS 1 by mouth da rocky for high blood pressure LOSARTAN POTASSIUM-HCTZ 03873023928 Active Stephy Urbina DO Active LISINOPRIL-HYDROCHLOROTHIAZIDE 20-12.5 MG TABS 1 tab by mouth da rocky LISINOPRIL-HYDROCHLOROTHIAZIDE 24248868909 No Longer Active Mitch luis DO Active LISINOPRIL 20 MG TABS 1 tab po at HS LISINOPRIL 03791938450 No Longer Active Mitch Urbina DO Active COUMADIN 5 MG TABS 1 by mouth every other day WARFARIN SODIUM 60151792172 No Longer Active Mitch Urbina DO Active COUMADIN 6 MG TABS 1 by mouth every other day WARFARIN SODIUM 64255375389 No Longer Active Mitch Urbina DO Active COLCRYS 0.6 MG TABS 1 tab qid prn gout COLCHICINE 43867834953 Active Mitch Urbina DO Active SIMVASTATIN 40 MG TABS 1 tab daily at bedtime S IMVASTATIN 12369811251 Active Mitch Urbina DO Active SIMVASTATIN 20 MG TABS 1 tab daily at bedtime S IMVASTATIN 30354024655 No Longer Active Mitch Urbina DO Active LOVENOX 100 MG/ML SC SOLN One injection twice a day 09/15/15 ENOXAPARIN SODIUM 59635342185 No Longer Active Carmine Navarrete ctive JANUVIA 50 MG TABS Take one by mouth daily DIEGO GLIPTIN PHOSPHATE 79383530458 Active Mitch Urbina DO Active JANUVIA 100 MG TABS 1/2 by mouth every day DIEGO GLIPTIN PHOSPHATE 48276033940 No Longer Active Bijal Philipp RN Active METFORMIN HCL 500 MG TABS 2 by mouth twice daily METFORMIN HCL 68115606281 Active Mitch Urbina DO Active GLIMEPIRIDE 4 MG TABS 1 tab po bid GLIMEPIRIDE 282249 97610 Active Mitch Urbina DO Active COLCRYS 0.6 MG TABS 1 po q 6 hours prn gout pain 03/02 COLCHICINE 12405610950 No Longer Active Camila Reese Active LISINOPRIL 5 MG TABS 1 by mouth every day LISIN OPRIL 07877492203 No Longer Active Nguyen Perez Active KLOR-CON 20 MEQ PACK Take one by mouth daily 8 POTASSIUM CHLORIDE 19310190943 No Longer Active Nguyen Perez Active FUROSEMIDE 40 MG TABS 1 by mouth daily FUROSEMI DE 24890415601 No Longer Active Nguyen Perez Active PROVIGIL 200 MG TABS 1/2 tab po q day MODAFINIL 09353 611218 Active Mitch Urbina DO Active PROVIGIL 100 MG TABS Take one by mouth daily MO DAFINIL 37207609600 No Longer Active Mitch Urbina DO Active BACTRIM DS 800-160 MG TAB 1 tab by mouth twice daily 2 TRIMETHOPRIM-SULFAMETHOXAZOLE 81515495982 No Longer Active Renan Hays MD Active FAMOTIDINE 20 MG TABS by mouth twice a day FAMOTI DINE 04865035129 Active Mitch Urbina DO Active ADULT ASPIRIN LOW STRENGTH 81 MG TBDP 1 by mouth every daily ASPIRIN 42023828891 Active Mitch Urbina DO Active METOPROLOL TARTRATE 50 MG TABS 1 by mouth twice daily METOPROLOL TARTRATE 78619684413 Active Mitch W Carlitos DO Active BACTRIM DS 800-160 MG TAB 1 tab by mouth twice daily 2 BACTRIM DS 800-160 MG TAB TRIMETHOPRIM-SULFAMETHOXAZOLE Inac tive PROVIGIL 100 MG TABS Take one by mouth daily 4 PROVIGIL 100 MG TABS 933679 MODAFINIL Inactive FUROSEMIDE 40 MG TABS 1 by mouth daily FU ROSEMIDE 40 MG TABS 216848 FUROSEMIDE Inactive KLOR-CON 20 MEQ PACK Take one by mouth daily 8 KLOR-CON 20 MEQ PACK 584006 POTASSIUM CHLORIDE Inactive LISINOPRIL 5 MG TABS 1 by mouth every day LISINOPRIL 5 MG TABS 103122 LISINOPRIL Inactive COLCRYS 0.6 MG TABS 1 po q 6 hours prn gout pain 03/02 COLCRYS 0.6 MG TABS COLCHICINE Inactive JANUVIA 100 MG TABS 1/2 by mouth every day JANUVI A 100 MG TABS SITAGLIPTIN PHOSPHATE Inactive SIMVASTATIN 20 MG TABS 1 tab daily at bedtime SIMVASTATIN 20 MG TABS 064549 SIMVASTATIN Inactive COUMADIN 6 MG TABS 1 by mouth every other day COUMADIN 6 MG TABS 197434 WARFARIN SODIUM Inactive COUMADIN 5 MG TABS 1 by mouth every other day COUMADIN 5 MG TABS 072252 WARFARIN SODIUM Inactive LISINOPRIL 20 MG TABS 1 tab po at HS KOKI NOPRIL 20 MG TABS 059164 LISINOPRIL Inactive LISINOPRIL-HYDROCHLOROTHIAZIDE 20-12.5 MG TABS 1 tab by mouth da rocky LISINOPRIL-HYDROCHLOROTHIAZIDE 20-12.5 MG TABS 813472 LISINOPRIL-HYDROCHLOROTHIAZIDE Inactive POLYTRIM 87220-3.1 UNIT/ML-% SOLN 1 drop in affected e ye every 3 hours while awake x 7 days POLYTRIM 58173-2.1 UNIT/ML-% SOLN 88739 7 POLYMYXIN B-TRIMETHOPRIM Inactive COUMADIN 4 MG TABS 1 tablet daily COUMADIN 4 MG TABS 345499 WARFARIN SODIUM Inactive CLONIDINE HCL 0.1 MG TABS 1 po bid 7 days, then 1/2 tab po b id 7 days CLONIDINE HCL 0.1 MG TABS 705623 CLONIDINE HCL I nactive ALLOPURINOL 300 MG TABS Take 1 tablet by mouth daily 2 ALLOPURINOL 300 MG TABS 264151 ALLOPURINOL Inactive MECLIZINE HCL 25 MG TAB 1 po tid 3 days, then 1/2 tab tid 3 days MECLIZINE HCL 25 MG TAB 145766 MECLIZINE HCL Inactive LOVENOX 100 MG/ML SC SOLN One injection twice a day 09/15/15 LOVENOX 100 MG/ML SC SOLN 068266 ENOXAPARIN SODIUM Inactive Vital Signs Date Name [...] 10.3 mg/dL 2.6-7.2 sodium, serum 136 mmol/L 295-068 4300/07/25 potassium, serum 4.6 mmol/L 3.5-5.2 chloride, serum [...] Panel - Chemistry sodium, serum 137 mmol/L 728-635 8241/11/14 potassium, serum 4.4 mmol/L 3.5-5.2 chloride, serum [...] 8.0 % 4.3-6.0 cholesterol, serum 130 mg/dL 075-534 6569/11/14 triglyceride, serum, fasting 288 mg/dL 30-200 HDL cholesterol, serum 33 mg/dL 32-96 LDL cholesterol, serum 39 mg/dL 0-130 Lab Report: Comp. Metabolic Panel, HGBA1 C, Lipid Panel, Prothrombin Time - Chemistry sodium, serum 136 mmol/L 274-481 1568/12/02 potassium, serum 4.4 mmol/L 3.5-5.2 chloride, serum [...] 7.6 % 4.3-6.0 cholesterol, serum 117 mg/dL 658-995 6098/12/02 triglyceride, serum, fasting 226 mg/dL 30-200 HDL [...] 1.0-3.5 Encounters Code Encounter Date Provider Facility CPT-19381 Level 3 Est. 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 CPT-43573 Level 3 Est. Patient 13:53:19 SADDLE AND SIDE WIRE STITCHER Mitch luis [facility] CPT-79233 Level 3 Est. Patient 19:19:37 SADDLE AND SIDE WIRE STITCHER Mitch Ambrose L janelle [facility] CPT-41640 Level 3 Est. Patient 13:25:53 SADDLE AND SIDE WIRE STITCHER Tavo toure MD [facility] CPT-55999 Level 3 Est. Patient 18:17:28 CDT Mitch Ambrose L janelle [facility] CPT-52613 Level 3 Est. Patient 15:22:57 CDT Mitch luis [facility] CPT-62472 Level 3 Est. Patient 18:21:50 CDT Mitch W L janelle [facility] CPT-73522 Level 3 Est. Patient 18:20:38 CDT Mitch Ambrose L janelle [facility] CPT-82024 Level 3 Est. Patient 15:37:55 CDT Mitch W L ee [facility] CPT-66794 Level 2 Est. Patient 15:54:44 CDT Carmine benton MD [facility]-22506 Level 3 Est. Patient 21:46:01 SADDLE AND SIDE WIRE STITCHER Mitch luis [facility] CPT-76381 Level 3 Est. Patient 22:15:50 CDT Mitch luis [facility] CPT-00789 Level 3 Est. Patient 10:48:15 CDT Mitch luis [facility] CPT-30261 Level 3 Est. Patient 23:20:57 CDT Tavo toure MD [facility] CPT-52920 Level 3 Est. Patient 16:26:13 CDT Mitch luis [facility] Procedures Code Procedure Name Date Entry Date Standard Desc ription CPT-95715 Venipuncture Draw Fee 10:13:28 SADDLE AND SIDE WIRE STITCHER CPT-96221 Venipuncture Draw Fee 08:31:11 CDT CPT-26770 Aspir/Inject Med Joint 18:17:28 CDT CPT-44471 Venipuncture Draw Fee 10:13:30 CDT CPT-16977 Venipuncture Draw Fee 08:31:43 SADDLE AND SIDE WIRE STITCHER CPT-JTINJ Joint Injection 18:34:50 CDT CPT-56196 Knee 3V 12:25:09 CDT CPT-15192 Venipuncture Draw Fee 12:15:57 CDT CPT-060 Medical Surveillance Exam 21:31:43 CDT 2011 CPT-61807 Venipuncture Draw Fee 08:32:05 SADDLE AND S[employer] WIRE STITCHER CPT-OV Office Visit 18:19:06 CDT
--- OUTSIDE RECORDS SUMMARY | 2020-01-18 13:22 | XMS REPORT | Clinical Summary ---
[...] Coronary atherosclerosis of unspecified type of vessel, [place] or graft EDEMA 782.3 Resolved Mitch Urbina [...] ( 6mg total ) 2015 WARFARIN SODIUM 01529553084 Active Domi Rivera MA Acti ve INVOKANA 100 MG ORAL TABS 1 tablet orally daily CANAGLIFLOZIN 22185406786 Active Kathie Juan RPT,RMA Active MINOXIDIL 2.5 MG TABS 1 tablet daily for high blood pressure 10/23 MINOXIDIL 45368094291 Active Mitch Urbina DO Active AMLODIPINE BESYLATE 5 MG TABS 1 tablet by mouth daily AMLODIPINE BESYLATE 94443610690 Active Domi Rievra MA Active MECLIZINE HCL 25 MG TAB 1 po tid 3 days, then 1/2 tab tid 3 days MECLIZINE HCL 97592878952 No Longer Active Corey SEGURA Active ALLOPURINOL 300 MG TABS Take 1 tablet by mouth daily 2 ALLOPURINOL 72164032033 No Longer Active Corey SEGURA Activ e CLONIDINE HCL 0.1 MG TABS 1 po bid 7 days, then 1/2 tab po b id 7 days CLONIDINE HCL 55107995852 No Longer Active Corey SEGURA Active COUMADIN 5 MG TABS 1 tab PO daily WARFARIN SODIUM 01596578780 Active Domi Rivera MA Active COUMADIN 4 MG TABS 1 tablet daily WARFARIN SODI UM 86572007354 No Longer Active Corey SEGURA Active POLYTRIM 46494-3.1 UNIT/ML-% SOLN 1 drop in affected e ye every 3 hours while awake x 7 days POLYMYXIN B-TRIMETHOPRIM 77090406263 N o Longer Active Corey SEGURA Active LOSARTAN POTASSIUM-HCTZ 100-12.5 MG TABS 1 by mouth da rocky for high blood pressure LOSARTAN POTASSIUM-HCTZ 48574838555 Active Domi Rivera MA Active LISINOPRIL-HYDROCHLOROTHIAZIDE 20-12.5 MG TABS 1 tab by mouth da rocky LISINOPRIL-HYDROCHLOROTHIAZIDE 12810551858 No Longer Active Mitch luis DO Active LISINOPRIL 20 MG TABS 1 tab po at HS LISINOPRIL 60436958637 No Longer Active Mitch Urbina DO Active COUMADIN 5 MG TABS 1 by mouth every other day WARFARIN SODIUM 53045464810 No Longer Active Mitch Urbina DO Active COUMADIN 6 MG TABS 1 by mouth every other day WARFARIN SODIUM 22369933727 No Longer Active Mitch Urbina DO Active COLCRYS 0.6 MG TABS 1 tab qid prn gout COLCHICINE 28585979893 Active Corey SEGURA Active SIMVASTATIN 40 MG TABS 1 tab daily at bedtime S IMVASTATIN 27529425529 Active Domi Rivera MA Active SIMVASTATIN 20 MG TABS 1 tab daily at bedtime S IMVASTATIN 39111054604 No Longer Active Mitch Urbina DO Active LOVENOX 100 MG/ML SC SOLN One injection twice a day 09/15/15 ENOXAPARIN SODIUM 59164134058 No Longer Active Carmine Navarrete ctive JANUVIA 50 MG TABS Take one by mouth daily DIEGO GLIPTIN PHOSPHATE 48847029132 Active Domi Rivera MA Active JANUVIA 100 MG TABS 1/2 by mouth every day DIEGO GLIPTIN PHOSPHATE 57971116764 No Longer Active Bijal Segal RN Active METFORMIN HCL 500 MG TABS 2 by mouth twice daily METFORMIN HCL 65512323487 Active Kathie Juan RPT,RMA Active GLIMEPIRIDE 4 MG TABS 1 tab po bid GLIMEPIRIDE 233344 76145 Active Kathie Juan RPT,RMA Active COLCRYS 0.6 MG TABS 1 po q 6 hours prn gout pain 03/02 COLCHICINE 36062363660 No Longer Active Camila Reese Active LISINOPRIL 5 MG TABS 1 by mouth every day LISIN OPRIL 09873089680 No Longer Active Nguyen Perez Active KLOR-CON 20 MEQ PACK Take one by mouth daily 8 POTASSIUM CHLORIDE 05138241087 No Longer Active Nguyen Perez Active FUROSEMIDE 40 MG TABS 1 by mouth daily FUROSEMI DE 46232052759 No Longer Active Nguyenomlly Perez Active PROVIGIL 200 MG TABS 1/2 tab po q day MODAFINIL 14870 654012 Active Domi Rivera MA Active PROVIGIL 100 MG TABS Take one by mouth daily MO DAFINIL 18517972983 No Longer Active Mitch Urbina DO Active BACTRIM DS 800-160 MG TAB 1 tab by mouth twice daily 2 TRIMETHOPRIM-SULFAMETHOXAZOLE 06640011563 No Longer Active Renan Hays MD Active FAMOTIDINE 20 MG TABS by mouth twice a day FAMOTI DINE 64914167647 Active Mitch Urbina DO Active ADULT ASPIRIN LOW STRENGTH 81 MG TBDP 1 by mouth every daily ASPIRIN 68871067147 Active Mitch Urbina DO Active METOPROLOL TARTRATE 50 MG TABS 1 by mouth twice daily METOPROLOL TARTRATE 06877509010 Active Domi Rivera MA Active BACTRIM DS 800-160 MG TAB 1 tab by mouth twice daily 2 BACTRIM DS 800-160 MG TAB 993772 TRIMETHOPRIM-SULFAMETHOXAZOLE Inac tive PROVIGIL 100 MG TABS Take one by mouth daily 4 PROVIGIL 100 MG TABS 683957 MODAFINIL Inactive FUROSEMIDE 40 MG TABS 1 by mouth daily FU ROSEMIDE 40 MG TABS 558016 FUROSEMIDE Inactive KLOR-CON 20 MEQ PACK Take one by mouth daily 8 KLOR-CON 20 MEQ PACK 854054 POTASSIUM CHLORIDE Inactive LISINOPRIL 5 MG TABS 1 by mouth every day LISINOPRIL 5 MG TABS 863453 LISINOPRIL Inactive COLCRYS 0.6 MG TABS 1 po q 6 hours prn gout pain 03/02 COLCRYS 0.6 MG TABS 696037 COLCHICINE Inactive JANUVIA 100 MG TABS 1/2 by mouth every day JANUVI A 100 MG TABS SITAGLIPTIN PHOSPHATE Inactive SIMVASTATIN 20 MG TABS 1 tab daily at bedtime SIMVASTATIN 20 MG TABS 840173 SIMVASTATIN Inactive COUMADIN 6 MG TABS 1 by mouth every other day COUMADIN 6 MG TABS 804879 WARFARIN SODIUM Inactive COUMADIN 5 MG TABS 1 by mouth every other day COUMADIN 5 MG TABS 841745 WARFARIN SODIUM Inactive LISINOPRIL 20 MG TABS 1 tab po at HS KOKI NOPRIL 20 MG TABS 043152 LISINOPRIL Inactive LISINOPRIL-HYDROCHLOROTHIAZIDE 20-12.5 MG TABS 1 tab by mouth da rocky LISINOPRIL-HYDROCHLOROTHIAZIDE 20-12.5 MG TABS 851405 LISINOPRIL-HYDROCHLOROTHIAZIDE Inactive POLYTRIM 29856-6.1 UNIT/ML-% SOLN 1 drop in affected e ye every 3 hours while awake x 7 days POLYTRIM 83056-7.1 UNIT/ML-% SOLN 17536 7 POLYMYXIN B-TRIMETHOPRIM Inactive COUMADIN 4 MG TABS 1 tablet daily COUMADIN 4 MG TABS 893747 WARFARIN SODIUM Inactive CLONIDINE HCL 0.1 MG TABS 1 po bid 7 days, then 1/2 tab po b id 7 days CLONIDINE HCL 0.1 MG TABS 543850 CLONIDINE HCL I nactive ALLOPURINOL 300 MG TABS Take 1 tablet by mouth daily 2 ALLOPURINOL 300 MG TABS 220539 ALLOPURINOL Inactive MECLIZINE HCL 25 MG TAB 1 po tid 3 days, then 1/2 tab tid 3 days MECLIZINE HCL 25 MG TAB 940171 MECLIZINE HCL Inactive LOVENOX 100 MG/ML SC SOLN One injection twice a day 09/15/15 LOVENOX 100 MG/ML SC SOLN 049718 ENOXAPARIN SODIUM Inactive Vital Signs Date Name [...] Range Description Chart Maintenance: Hemoccult added [facility] - Chemistry occult blood, stool (E&M) Positive [...] Ag - Chemistry sodium, serum 141 mmol/L 100-186 3147/07/06 potassium, serum 4.4 mmol/L 3.5-5.2 chloride, serum [...] - Chem istry sodium, serum 136 mmol/L 529-163 6922/01/14 carbon dioxide, venous blood 25.4 mmol/L 21.0-32 [...] 7.0 % 4.3-6.0 cholesterol, serum 120 mg/dL 609-501 7785/07/06 triglyceride, serum, fasting 186 mg/dL 30-200 HDL [...] 1.0-3.5 Encounters Code Encounter Date Provider Facility CPT-27904 Level 3 Est. Patient 09:34:30 DIALYSIS TECHNICIAN Mitch luis [facility] CPT-52138 Level 3 Est. Patient 09:37:15 CDT Mitch luis [facility] CPT-72116 Level 3 Est. Patient 17:01:00 DIALYSIS TECHNICIAN Mitch luis [facility] CPT-75827 Level 3 Est. Patient 13:53:19 DIALYSIS TECHNICIAN Mitch luis [facility] CPT-49964 Level 3 Est. Patient 19:19:37 DIALYSIS TECHNICIAN Mitch luis [facility] CPT-92418 Level 3 Est. Patient 13:25:53 DIALYSIS TECHNICIAN Tavo toure MD [facility] CPT-32268 Level 3 Est. Patient 18:17:28 CDT Mitch luis [facility] CPT-71352 Level 3 Est. Patient 15:22:57 CDT Mitch luis [facility] CPT-66095 Level 3 Est. Patient 18:21:50 CDT Mitch luis [facility] CPT-59850 Level 3 Est. Patient 18:20:38 CDT Mitch luis [facility] CPT-91819 Level 3 Est. Patient 15:37:55 CDT Mitch luis [facility] CPT-75486 Level 2 Est. Patient 15:54:44 CDT Carmine benton MD [facility] CPT-93029 Level 3 Est. Patient 21:46:01 DIALYSIS TECHNICIAN Mitch luis [facility] CPT-34130 Level 3 Est. Patient 22:15:50 CDT Mitch luis [facility] CPT-22413 Level 3 Est. Patient 10:48:15 CDT Mitch luis [facility] CPT-93534 Level 3 Est. Patient 23:20:57 CDT Tavo toure MD [facility] CPT-71468 Level 3 Est. Patient 16:26:13 CDT Mitch luis [facility] Procedures Code Procedure Name Date Entry Date Standard Desc ription CPT-09090 Venipuncture Draw Fee 08:32:21 DIALYSIS TECHNICIAN CPT-10896 Venipuncture Draw Fee 09:38:56 DIALYSIS TECHNICIAN CPT-91252 No Charge Offi Visit 21:36:07 CDT 1 CPT-26299 Venipuncture Draw Fee 10:13:28 DIALYSIS TECHNICIAN CPT-29695 Venipuncture Draw Fee 08:31:11 CDT CPT-64191 Aspir/Inject Med Joint 18:17:28 CDT CPT-14229 Venipuncture Draw Fee 10:13:30 CDT CPT-25089 Venipuncture Draw Fee 08:31:43 DIALYSIS TECHNICIAN CPT-JTINJ Joint Injection 18:34:50 CDT CPT-05413 Knee 3V 12:25:09 CDT CPT-66845 Venipuncture Draw Fee 12:15:57 CDT CPT-060 Medical Surveillance Exam 21:31:43 CDT 2011 CPT-03036 Venipuncture Draw Fee 08:32:05 DIALYSIS TECHNICIAN CPT-OV Office Visit 18:19:06 CDT
--- OUTSIDE RECORDS SUMMARY | 2020-01-18 13:22 | XMS REPORT | Clinical Summary ---
Author Author Admin, Mitch Leon Organization [facility] Address Unknown Phone Unavailable [...] Coronary atherosclerosis of unspecified type of vessel, kenaitze or graft EDEMA 782.3 Resolved Mitch Urbina [...] ORAL TABLET 1 po BID GLIMEPIRID E 41205571778 Active Renee Oconnor LPN Active KEFLEX 500 MG ORAL CAPSULE 1 po qid CEPHALEXI N 99426359835 No Longer Active Mitch Urbina DO Active LOSARTAN POTASSIUM 100 MG ORAL TABLET 1 pill by mouth daily, for blood pressure LOSARTAN POTASSIUM 54636788283 Active Ana Wallace Active AMLODIPINE BESYLATE 5 MG ORAL TABLET 1 tablet by mouth daily 201 01/20/04 AMLODIPINE BESYLATE 15920535631 No Longer Active Joe fulton APRN Active MITIGARE 0.6 MG ORAL CAPSULE 2 capsules at onset of go ut pain, then take one capsule at 1 hour if symptoms persist. COLCHICINE 59 497675418 Active Mitch Urbina DO Active COUMADIN 1 MG ORAL TABLET 2 tabs orally daily with the 5mg tab to equal 7mg daily WARFARIN SODIUM 03878573269 Active Ana Wallace Active COLCRYS 0.6 MG ORAL TABLET 1 tab qid prn gout C OLCHICINE 05807890292 Active Norma Cazares Active INVOKANA 100 MG ORAL TABLET 1 tablet orally daily CANAGLIFLOZIN 22491540644 Active Mitch Urbina DO Active MINOXIDIL 2.5 MG ORAL TABLET 1 tablet daily for high blood press ure MINOXIDIL 97950441794 Active Mitch Urbina DO Active MECLIZINE HCL 25 MG ORAL TABLET 1 po tid 3 days, then 1/2 ta b tid 3 days MECLIZINE HCL 15815267229 No Longer Active Corey SEGURA Active ALLOPURINOL 300 MG ORAL TABLET Take 1 tablet by mouth daily 2012 ALLOPURINOL 72582157733 No Longer Active Corey SEGURA Active CLONIDINE HCL 0.1 MG ORAL TABLET 1 po bid 7 days, then 1/2 t ab po bid 7 days CLONIDINE HCL 69632069458 No Longer Active Corey SEGURA Active COUMADIN 5 MG ORAL TABLET 1 tab PO daily WARFAR IN SODIUM 77409246188 Active Mitch Urbina DO Active COUMADIN 4 MG ORAL TABLET 1 tablet daily WARFAR IN SODIUM 48069445000 No Longer Active Corey SEGURA Active POLYTRIM 39227-8.1 UNIT/ML-% OPHTHALMIC SOLUTION 1 rui p in affected eye every 3 hours while awake x 7 days POLYMYXIN B-TRIMETHOP RIM 12511256924 No Longer Active Corey SEGURA Active LOSARTAN POTASSIUM-HCTZ 100-12.5 MG ORAL TABLET 1 by m outh daily for high blood pressure LOSARTAN POTASSIUM-HCTZ 81975753880 No Longer A ctive Mitch Urbina DO Active LISINOPRIL-HYDROCHLOROTHIAZIDE 20-12.5 MG ORAL TABLET 1 tab by m outh daily LISINOPRIL-HYDROCHLOROTHIAZIDE 81273157019 No Longer Active Mitch Urbina DO Active LISINOPRIL 20 MG ORAL TABLET 1 tab po at HS LIS INOPRIL 00835582027 No Longer Active Mitch Urbina DO Active COUMADIN 5 MG ORAL TABLET 1 by mouth every other day 2 WARFARIN SODIUM 45436676770 No Longer Active Mitch rUbina DO Active COUMADIN 6 MG ORAL TABLET 1 by mouth every other day 2 WARFARIN SODIUM 43297714013 No Longer Active Mitch Urbina DO Active SIMVASTATIN 40 MG ORAL TABLET 1 tab daily at bedtime SIMVASTATIN 60205718295 Active Mitch Urbina DO Active SIMVASTATIN 20 MG ORAL TABLET 1 tab daily at bedtime 2 SIMVASTATIN 69788779472 No Longer Active Mitch Urbina DO Active LOVENOX 100 MG/ML SUBCUTANEOUS SOLUTION One injection twice a da y ENOXAPARIN SODIUM 34906798471 No Longer Active Carmine Yusuf MD Active JANUVIA 50 MG ORAL TABLET Take one by mouth daily SITAGLIPTIN PHOSPHATE 01261488548 Active Mitch Urbina DO Active JANUVIA 100 MG ORAL TABLET 1/2 by mouth every day 2011 SITAGLIPTIN PHOSPHATE 66052409032 No Longer Active Bijal Segal RN Acti ve METFORMIN HCL 500 MG ORAL TABLET 2 by mouth twice daily METFORMIN HCL 13129643726 Active Mitch Urbina DO Active COLCRYS 0.6 MG ORAL TABLET 1 po q 6 hours prn gout pain COLCHICINE 48480353695 No Longer Active Camila Reese Active LISINOPRIL 5 MG ORAL TABLET 1 by mouth every day 11/17 LISINOPRIL 67812185588 No Longer Active Nguyen Coekman Active KLOR-CON 20 MEQ ORAL PACKET Take one by mouth daily 09/10/08 POTASSIUM CHLORIDE 30879862477 No Longer Active Nguyen Coekman Active FUROSEMIDE 40 MG ORAL TABLET 1 by mouth daily F UROSEMIDE 87872107988 No Longer Active Nguyen Ana Active PROVIGIL 200 MG ORAL TABLET 1/2 tab po q day MODA FINIL 02875726217 Active Renee Oconnor MUSEUM CURATOR Active PROVIGIL 100 MG ORAL TABLET Take one by mouth daily 08/20/04 MODAFINIL 38649288636 No Longer Active Mitch Urbina DO Active BACTRIM DS 800-160 MG ORAL TABLET 1 tab by mouth twice daily 201 10/19/09 TRIMETHOPRIM-SULFAMETHOXAZOLE 83242017955 No Longer Active Elian Hays MD Active FAMOTIDINE 20 MG ORAL TABLET by mouth twice a day FAMOTIDINE 33077829881 Active Mitch Urbina DO Active ADULT ASPIRIN LOW STRENGTH 81 MG ORAL TABLET DISINTEGR ATING 1 by mouth every daily ASPIRIN 75630834788 Active Mitch Urbina DO Ac tive METOPROLOL TARTRATE 50 MG ORAL TABLET 1 by mouth twice daily METOPROLOL TARTRATE 94507612196 Active Mitch Urbina DO Active BACTRIM DS 800-160 MG ORAL TABLET 1 tab by mouth twice daily 201 10/19/09 BACTRIM DS 800-160 MG ORAL TABLET 092807 TRIMETHOPRIM-SULFAMETHOXAZOLE Inactive PROVIGIL 100 MG ORAL TABLET Take one by mouth daily 08/20/04 PROVIGIL 100 MG ORAL TABLET 813897 MODAFINIL Inactive FUROSEMIDE 40 MG ORAL TABLET 1 by mouth daily FUROSEMIDE 40 MG ORAL TABLET 865831 FUROSEMIDE Inactive KLOR-CON 20 MEQ ORAL PACKET Take one by mouth daily 09/10/08 KLOR- CON 20 MEQ ORAL PACKET 7856586 POTASSIUM CHLORIDE Inactive LISINOPRIL 5 MG ORAL TABLET 1 by mouth every day 11/17 LISINOPRIL 5 MG ORAL TABLET 960336 LISINOPRIL Inactive COLCRYS 0.6 MG ORAL TABLET 1 po q 6 hours prn gout pain COLCRYS 0.6 MG ORAL TABLET 237878 COLCHICINE Inactive JANUVIA 100 MG ORAL TABLET 1/2 by mouth every day 2011 JANUVIA 100 MG ORAL TABLET SITAGLIPTIN PHOSPHATE Inactive SIMVASTATIN 20 MG ORAL TABLET 1 tab daily at bedtime 2 SIMVASTATIN 20 MG ORAL TABLET 209715 SIMVASTATIN Inactive COUMADIN 6 MG ORAL TABLET 1 by mouth every other day 2 COUMADIN 6 MG ORAL TABLET 357497 WARFARIN SODIUM Inactive COUMADIN 5 MG ORAL TABLET 1 by mouth every other day 2 COUMADIN 5 MG ORAL TABLET 842604 WARFARIN SODIUM Inactive LISINOPRIL 20 MG ORAL TABLET 1 tab po at HS LISINOPRIL 20 MG ORAL TABLET 009866 LISINOPRIL Inactive LISINOPRIL-HYDROCHLOROTHIAZIDE 20-12.5 MG ORAL TABLET 1 tab by m outh daily LISINOPRIL-HYDROCHLOROTHIAZIDE 20-12.5 MG ORAL TABLET 873697 LISINOPRIL-HYDROCHLOROTHIAZIDE Inactive POLYTRIM 57792-6.1 UNIT/ML-% OPHTHALMIC SOLUTION 1 rui p in affected eye every 3 hours while awake x 7 days POLYTRIM 1000 0-0.1 UNIT/ML-% OPHTHALMIC SOLUTION 403865 POLYMYXIN B-TRIMETHOPRIM Inactive COUMADIN 4 MG ORAL TABLET 1 tablet daily COUMADIN 4 MG ORAL TABLET 700875 WARFARIN SODIUM Inactive CLONIDINE HCL 0.1 MG ORAL TABLET 1 po bid 7 days, then 1/2 t ab po bid 7 days CLONIDINE HCL 0.1 MG ORAL TABLET 746808 CLONIDIN E HCL Inactive ALLOPURINOL 300 MG ORAL TABLET Take 1 tablet by mouth daily 2012 ALLOPURINOL 300 MG ORAL TABLET 724614 ALLOPURINOL I nactive MECLIZINE HCL 25 MG ORAL TABLET 1 po tid 3 days, then 1/2 ta b tid 3 days MECLIZINE HCL 25 MG ORAL TABLET 070484 MECLIZINE HCL Inactive AMLODIPINE BESYLATE 5 MG ORAL TABLET 1 tablet by mouth daily 201 01/20/04 AMLODIPINE BESYLATE 5 MG ORAL TABLET 062364 AMLODIPINE BESYLATE Inactive KEFLEX 500 MG ORAL CAPSULE 1 po qid K EFLEX 500 MG ORAL CAPSULE 199194 CEPHALEXIN Inactive LOVENOX 100 MG/ML SUBCUTANEOUS SOLUTION One injection twice a da y LOVENOX 100 MG/ML SUBCUTANEOUS SOLUTION 355624 ENOXAPAR IN SODIUM Inactive Vital Signs Date [...] - Chem istry sodium, serum 139 mmol/L 766-030 2149/07/17 potassium, serum 4.2 mmol/L 3.5-5.2 chloride, serum 102 mmol/L 98-107 carbon dioxide, venous blood 28.9 mmol/L 21.0-32 .0 blood glucose 211 mg/dL 65-110 calcium, serum 10.6 mg/dL 8.5-10.1 urea nitrogen, blood 29 mg/dL 7-18 creatinine, serum 1.24 mg/dL 0.60-1.30 sodium, serum 141 mmol/L 787-232 2518/08/07 potassium, serum 4.5 mmol/L 3.5-5.2 chloride, serum [...] ng/mL 0.00-4.00 blood glucose 192 mg/dL 65-110 chloride, serum 105 mmol/L 98-107 potassium, serum 4.2 mmol/L 3.5-5.2 carbon dioxide, venous blood 26.6 mmol/L 21.0-32 .0 sodium, serum 144 mmol/L 136-145 Lab Report: Lipid Panel, HEPATIC PANEL, HGBA1C - Chemistry cholesterol, serum 136 mg/dL 935-394 9969/12/06 triglyceride, serum, fasting 247 mg/dL 30-200 HDL cholesterol, serum 41 mg/dL 32-60 LDL cholesterol, serum 46 mg/dL 0-130 aspartate aminotransferase (SGOT), serum 22 U/L 15-37 alanine aminotransferase (SGPT), serum 30 U/L 12-78 bilirubin, serum, total 0.80 mg/dL 0.00-1.00 hemoglobin A1C, blood, as % of total hemoglobin 6.4 % 4.3-6.0 Encounters Code Encounter Date Provider Facility CPT-96379 Level 3 Est. Patient 18:25:53 CDT Mitch luis [facility] CPT-26366 Level 3 Est. Patient 19:43:34 CDT Mitch luis [facility] CPT-52617 Level 4 Est. Patient 09:30:18 CDT Mitch luis [facility] CPT-84532 Level 3 Est. Patient 15:10:14 CDT Joe kamara [facility] CPT-29328 Level 3 Est. Patient 15:03:46 CDT Joe kamara [facility] CPT-63447 Level 3 Est. Patient 14:21:06 CDT Mitch luis [facility] CPT-84492 Level 3 Est. Patient 14:52:06 CDT Joe kamara [facility] CPT-86473 Level 3 Est. Patient 09:34:30 SHANK FAKER Mitch luis [facility] CPT-80574 Level 3 Est. Patient 09:37:15 CDT Mitch luis [facility] CPT-34611 Level 3 Est. Patient 17:01:00 SHANK FAKER Mitch luis [facility] CPT-07155 Level 3 Est. Patient 13:53:19 SHANK FAKER Mitch luis [facility] CPT-68939 Level 3 Est. Patient 19:19:37 SHANK FAKER Micth luis [facility] CPT-59639 Level 3 Est. Patient 13:25:53 SHANK FAKER Tavo toure MD [facility] CPT-54107 Level 3 Est. Patient 18:17:28 CDT Mitch luis [facility] CPT-59483 Level 3 Est. Patient 15:22:57 CDT Mitch luis [facility] CPT-68738 Level 3 Est. Patient 18:21:50 CDT Mitch luis [facility] CPT-78834 Level 3 Est. Patient 18:20:38 CDT Mitch luis [facility] CPT-17526 Level 3 Est. Patient 15:37:55 CDT Mitch luis [facility] CPT-89216 Level 2 Est. Patient 15:54:44 CDT Carmine benton MD [facility] CPT-93588 Level 3 Est. Patient 21:46:01 SHANK FAKER Mitch luis [facility] CPT-37615 Level 3 Est. Patient 22:15:50 CDT Mitch luis [facility] CPT-91922 Level 3 Est. Patient 10:48:15 CDT Mitch luis [facility] CPT-08450 Level 3 Est. Patient 23:20:57 CDT Tavo toure MD [facility] CPT-22575 Level 3 Est. Patient 16:26:13 CDT Mitch Arnol Nona janelle [facility] Procedures Code Procedure Name Date Entry Date Standard Desc ription CPT-36676 Venipuncture Draw Fee 09:26:17 CDT CPT-68853 PT/INR - LAB USE ONLY 13:32:49 SHANK FAKER CPT-54893 Venipuncture Draw Fee 13:32:49 SHANK FAKER CPT-32929 PT/INR - LAB USE ONLY 10:34:49 SHANK FAKER CPT-63009 Venipuncture Draw Fee 10:34:48 SHANK FAKER CPT-89411 PT/INR - LAB USE ONLY 09:22:03 SHANK FAKER CPT-16019 Venipuncture Draw Fee 09:22:02 SHANK FAKER CPT-63291 Hemoccult IFOBT - LAB USE ONLY 10:27:22 CDT CPT-79350 Venipuncture Draw Fee 08:27:08 CDT CPT-71569 Liver Profile - LAB USE ONLY 08:27:07 CDT 2 CPT-95418 Microalbumin - LAB USE ONLY 08:27:07 CDT 20 25/05/09 CPT-53286 PT/INR - LAB USE ONLY 08:27:07 CDT CPT-09695 HGBA1C - LAB USE ONLY 08:27:07 CDT CPT-06468 CBC - LAB USE ONLY 08:27:07 CDT CPT-08256 Venipuncture Draw Fee 11:09:14 CDT CPT-83238 Venipuncture Draw Fee 08:32:21 SHANK FAKER CPT-84358 Venipuncture Draw Fee 09:38:56 SHANK FAKER CPT-83294 No Charge Offi Visit 21:36:07 CDT 1 CPT-02889 Venipuncture Draw Fee 10:13:28 SHANK FAKER CPT-02783 Venipuncture Draw Fee 08:31:11 CDT CPT-29291 Aspir/Inject Med Joint 18:17:28 CDT CPT-44455 Venipuncture Draw Fee 10:13:30 CDT CPT-77774 Venipuncture Draw Fee 08:31:43 SHANK FAKER CPT-JTINJ Joint Injection 18:34:50 CDT CPT-27184 Knee 3V 12:25:09 CDT CPT-39674 Venipuncture Draw Fee 12:15:57 CDT CPT-060 Medical Surveillance Exam 21:31:43 CDT 2011 CPT-83560 Venipuncture Draw Fee 08:32:05 SHANK FAKER CPT-OV Office Visit 18:19:06 CDT
--- OUTSIDE RECORDS SUMMARY | 2020-01-18 13:22 | XMS REPORT | Clinical Summary ---
Author Author Admin, Mitch Leon Organization [facility] [employer] Address Unknown Phone Unavailable Allergies, Adverse Reactions, [...] tab to equal 7mg daily WARFARIN SODIUM 64124558053 Active Kathie Juan RPT,R MA Active COLCRYS 0.6 MG TABS 1 tab qid prn gout COLCHICINE 29379321890 Active Kathie Juan RPT,RMA Active INVOKANA 100 MG ORAL TABS 1 tablet orally daily CANAGLIFLOZIN 00593135902 Active Kathie Juan RPT,RMA Active MINOXIDIL 2.5 MG TABS 1 tablet daily for high blood pressure 10/23 MINOXIDIL 40801116884 Active Mitch Urbina DO Active AMLODIPINE BESYLATE 5 MG TABS 1 tablet by mouth daily AMLODIPINE BESYLATE 02038155523 Active Domi Rivera MA Active MECLIZINE HCL 25 MG TAB 1 po tid 3 days, then 1/2 tab tid 3 days MECLIZINE HCL 33217622522 No Longer Active Corey SEGURA Active ALLOPURINOL 300 MG TABS Take 1 tablet by mouth daily 2 ALLOPURINOL 35589615534 No Longer Active Corey SEGURA Activ e CLONIDINE HCL 0.1 MG TABS 1 po bid 7 days, then 1/2 tab po b id 7 days CLONIDINE HCL 47740905684 No Longer Active Corey SEGURA Active COUMADIN 5 MG TABS 1 tab PO daily WARFARIN SODIUM 92146424712 Active Domi Rivera MA Active COUMADIN 4 MG TABS 1 tablet daily WARFARIN SODI UM 93392185837 No Longer Active Corey SEGURA Active POLYTRIM 22454-2.1 UNIT/ML-% SOLN 1 drop in affected e ye every 3 hours while awake x 7 days POLYMYXIN B-TRIMETHOPRIM 29507928082 N o Longer Active Corey SEGURA Active LOSARTAN POTASSIUM-HCTZ 100-12.5 MG TABS 1 by mouth da rocky for high blood pressure LOSARTAN POTASSIUM-HCTZ 47581906507 Active Domi Rivera MA Active LISINOPRIL-HYDROCHLOROTHIAZIDE 20-12.5 MG TABS 1 tab by mouth da rocky LISINOPRIL-HYDROCHLOROTHIAZIDE 09841704463 No Longer Active Mitch luis DO Active LISINOPRIL 20 MG TABS 1 tab po at HS LISINOPRIL 81030841364 No Longer Active Mitch Urbina DO Active COUMADIN 5 MG TABS 1 by mouth every other day WARFARIN SODIUM 00962711660 No Longer Active Mitch Urbina DO Active COUMADIN 6 MG TABS 1 by mouth every other day WARFARIN SODIUM 18144329483 No Longer Active Mitch Urbina DO Active SIMVASTATIN 40 MG TABS 1 tab daily at bedtime S IMVASTATIN 76150942883 Active Domi Rivera MA Active SIMVASTATIN 20 MG TABS 1 tab daily at bedtime S IMVASTATIN 88551442536 No Longer Active Mitch Urbina DO Active LOVENOX 100 MG/ML SC SOLN One injection twice a day 09/15/15 ENOXAPARIN SODIUM 89261196185 No Longer Active Carmine Yusuf MD A ctive JANUVIA 50 MG TABS Take one by mouth daily DIEGO GLIPTIN PHOSPHATE 91706953491 Active Tavo Hilton MD Active JANUVIA 100 MG TABS 1/2 by mouth every day DIEGO GLIPTIN PHOSPHATE 26054317188 No Longer Active Bijal Segal RN Active METFORMIN HCL 500 MG TABS 2 by mouth twice daily METFORMIN HCL 63507940525 Active Mitch Urbina DO Active GLIMEPIRIDE 4 MG TABS 1 tab po bid GLIMEPIRIDE 042311 67434 Active Mitch Urbina DO Active COLCRYS 0.6 MG TABS 1 po q 6 hours prn gout pain 03/02 COLCHICINE 17088233177 No Longer Active Camila Reese Active LISINOPRIL 5 MG TABS 1 by mouth every day LISIN OPRIL 79588695443 No Longer Active Nguyen Perez Active KLOR-CON 20 MEQ PACK Take one by mouth daily 8 POTASSIUM CHLORIDE 52055960024 No Longer Active Nguyen Perez Active FUROSEMIDE 40 MG TABS 1 by mouth daily FUROSEMI DE 04992396791 No Longer Active Nguyen Perez Active PROVIGIL 200 MG TABS 1/2 tab po q day MODAFINIL 34970 981807 Active Curly Coker MD Active PROVIGIL 100 MG TABS Take one by mouth daily MO DAFINIL 99209583742 No Longer Active Mitch Urbina DO Active BACTRIM DS 800-160 MG TAB 1 tab by mouth twice daily 2 TRIMETHOPRIM-SULFAMETHOXAZOLE 84472601266 No Longer Active Renan Hays MD Active FAMOTIDINE 20 MG TABS by mouth twice a day FAMOTI DINE 39469572623 Active Mitch Urbina DO Active ADULT ASPIRIN LOW STRENGTH 81 MG TBDP 1 by mouth every daily ASPIRIN 80629681892 Active Mitch Urbina DO Active METOPROLOL TARTRATE 50 MG TABS 1 by mouth twice daily METOPROLOL TARTRATE 42874917982 Active Domi Rivera MA Active BACTRIM DS 800-160 MG TAB 1 tab by mouth twice daily 2 BACTRIM DS 800-160 MG TAB 572138 TRIMETHOPRIM-SULFAMETHOXAZOLE Inac tive PROVIGIL 100 MG TABS Take one by mouth daily 4 PROVIGIL 100 MG TABS 054569 MODAFINIL Inactive FUROSEMIDE 40 MG TABS 1 by mouth daily FU ROSEMIDE 40 MG TABS 284846 FUROSEMIDE Inactive KLOR-CON 20 MEQ PACK Take one by mouth daily 8 KLOR-CON 20 MEQ PACK 225015 POTASSIUM CHLORIDE Inactive LISINOPRIL 5 MG TABS 1 by mouth every day LISINOPRIL 5 MG TABS 394609 LISINOPRIL Inactive COLCRYS 0.6 MG TABS 1 po q 6 hours prn gout pain 03/02 COLCRYS 0.6 MG TABS 630902 COLCHICINE Inactive JANUVIA 100 MG TABS 1/2 by mouth every day JANUVI A 100 MG TABS SITAGLIPTIN PHOSPHATE Inactive SIMVASTATIN 20 MG TABS 1 tab daily at bedtime SIMVASTATIN 20 MG TABS 744886 SIMVASTATIN Inactive COUMADIN 6 MG TABS 1 by mouth every other day COUMADIN 6 MG TABS 709076 WARFARIN SODIUM Inactive COUMADIN 5 MG TABS 1 by mouth every other day COUMADIN 5 MG TABS 604655 WARFARIN SODIUM Inactive LISINOPRIL 20 MG TABS 1 tab po at HS KOKI NOPRIL 20 MG TABS 955340 LISINOPRIL Inactive LISINOPRIL-HYDROCHLOROTHIAZIDE 20-12.5 MG TABS 1 tab by mouth da rocky LISINOPRIL-HYDROCHLOROTHIAZIDE 20-12.5 MG TABS 475784 LISINOPRIL-HYDROCHLOROTHIAZIDE Inactive POLYTRIM 51973-3.1 UNIT/ML-% SOLN 1 drop in affected e ye every 3 hours while awake x 7 days POLYTRIM 52685-4.1 UNIT/ML-% SOLN 88675 7 POLYMYXIN B-TRIMETHOPRIM Inactive COUMADIN 4 MG TABS 1 tablet daily COUMADIN 4 MG TABS 149814 WARFARIN SODIUM Inactive CLONIDINE HCL 0.1 MG TABS 1 po bid 7 days, then 1/2 tab po b id 7 days CLONIDINE HCL 0.1 MG TABS 478791 CLONIDINE HCL I nactive ALLOPURINOL 300 MG TABS Take 1 tablet by mouth daily 2 ALLOPURINOL 300 MG TABS 517939 ALLOPURINOL Inactive MECLIZINE HCL 25 MG TAB 1 po tid 3 days, then 1/2 tab tid 3 days MECLIZINE HCL 25 MG TAB 034660 MECLIZINE HCL Inactive LOVENOX 100 MG/ML SC SOLN One injection twice a day 20 09/15/15 LOVENOX 100 MG/ML SC SOLN 320323 ENOXAPARIN SODIUM Inactive Vital Signs Date Name [...] - Chem istry sodium, serum 136 mmol/L 763-819 9344/01/14 carbon dioxide, venous blood 25.4 mmol/L 21.0-32 [...] 18.9 SECS s 11.1-13.4 prothrombin time (patient) 15.4 SECS s 11.1-13.4 international normalized ratio (INR) 1.5 1.0-3.5 prothrombin time (patient) 18.1 SECS s 11.1-13.4 international normalized ratio (INR) 2.2 1.0-3.5 international normalized ratio (INR) 1.8 1.0-3.5 prothrombin time (patient) 16.2 SECS s 11.1-13.4 prothrombin time (patient) 15.8 SECS s 11.1-13.4 international normalized ratio (INR) 1.8 1.0-3.5 prothrombin time (patient) 17.1 SECS s 11.1-13.4 international normalized ratio (INR) 2.0 1.0-3.5 prothrombin time (patient) 16.9 SECS s 11.1-13.4 international normalized ratio (INR) 2.0 1.0-3.5 international normalized ratio (INR) 2.4 1.0-3.5 Encounters Code Encounter Date Provider Facility CPT-13934 Level 3 Est. Patient 09:34:30 ORTHOTIC TECHNICIAN Mitch luis [facility] CPT-66985 Level 3 Est. Patient 09:37:15 CDT Mitch luis [facility] CPT-98955 Level 3 Est. Patient 17:01:00 ORTHOTIC TECHNICIAN Mitch luis [facility] CPT-42463 Level 3 Est. Patient 13:53:19 ORTHOTIC TECHNICIAN Mitch luis [facility] CPT-26583 Level 3 Est. Patient 19:19:37 ORTHOTIC TECHNICIAN Mitch luis [facility] CPT-49075 Level 3 Est. Patient 13:25:53 ORTHOTIC TECHNICIAN Tavo toure MD [facility] CPT-42998 Level 3 Est. Patient 18:17:28 CDT Mitch luis [facility] CPT-53094 Level 3 Est. Patient 15:22:57 CDT Mitch luis [facility] CPT-06410 Level 3 Est. Patient 18:21:50 CDT Mitch luis [facility] CPT-20738 Level 3 Est. Patient 18:20:38 CDT Mitch luis [facility] CPT-51371 Level 3 Est. Patient 15:37:55 CDT Mitch luis [facility] CPT-21559 Level 2 Est. Patient 15:54:44 CDT Carmine benton MD [facility]-81084 Level 3 Est. Patient 21:46:01 ORTHOTIC TECHNICIAN Mitch luis [facility] CPT-07439 Level 3 Est. Patient 22:15:50 CDT Mitch luis [facility] CPT-64104 Level 3 Est. Patient 10:48:15 CDT Mitch Arnol L janelle [facility] CPT-76972 Level 3 Est. Patient 23:20:57 CDT Tavo toure MD [facility] CPT-71529 Level 3 Est. Patient 16:26:13 CDT Mitch Castellano janelle [facility] Procedures Code Procedure Name Date Entry Date Standard Desc ription CPT-35166 Venipuncture Draw Fee 08:27:08 CDT CPT-87963 Liver Profile - LAB USE ONLY 08:27:07 CDT 2 CPT-82188 Microalbumin - LAB USE ONLY 08:27:07 CDT 20 25/05/09 CPT-36079 PT/INR - LAB USE ONLY 08:27:07 CDT CPT-85699 HGBA1C - LAB USE ONLY 08:27:07 CDT CPT-43612 CBC - LAB USE ONLY 08:27:07 CDT CPT-65101 Venipuncture Draw Fee 11:09:14 CDT CPT-21204 Venipuncture Draw Fee 08:32:21 ORTHOTIC TECHNICIAN CPT-60866 Venipuncture Draw Fee 09:38:56 ORTHOTIC TECHNICIAN CPT-80704 No Charge Offi Visit 21:36:07 CDT 1 CPT-50215 Venipuncture Draw Fee 10:13:28 ORTHOTIC TECHNICIAN CPT-90945 Venipuncture Draw Fee 08:31:11 CDT CPT-86015 Aspir/Inject Med Joint 18:17:28 CDT CPT-00410 Venipuncture Draw Fee 10:13:30 CDT CPT-59179 Venipuncture Draw Fee 08:31:43 ORTHOTIC TECHNICIAN CPT-JTINJ Joint Injection 18:34:50 CDT CPT-75765 Knee 3V 12:25:09 CDT CPT-35491 Venipuncture Draw Fee 12:15:57 CDT CPT-060 Medical Surveillance Exam 21:31:43 CDT 2011 CPT-68541 Venipuncture Draw Fee 08:32:05 ORTHOTIC TECHNICIAN CPT-OV Office Visit 18:19:06 CDT
--- OUTSIDE RECORDS SUMMARY | 2020-01-18 13:22 | XMS REPORT | Clinical Summary ---
Author Author Admin, Mitch Leon Organization [facility] Address Unknown Phone Unavailable Allergies, Adverse Reactions, [...] Coronary atherosclerosis of unspecified type of vessel, lummi or graft EDEMA 782.3 Resolved Mitch Urbina [...] daily, for bl ood pressure LOSARTAN POTASSIUM 09823735338 Active Ana Wallace Active AMLODIPINE BESYLATE 5 MG TABS 1 tablet by mouth daily AMLODIPINE BESYLATE 25237514336 No Longer Active Joe Williamson APRN Active MITIGARE 0.6 MG ORAL CAPS 2 capsules at onset of gout pain, then take one capsule at 1 hour if symptoms persist. COLCHICINE 59 031944676 Active Mitch Urbina DO Active COUMADIN 1 MG TAB 2 tabs orally daily with the 5mg tab to equal 7mg daily WARFARIN SODIUM 95847634425 Active Mitch Urbina DO Active COLCRYS 0.6 MG TABS 1 tab qid prn gout COLCHICINE 87161695604 Active Norma Cazares Active INVOKANA 100 MG ORAL TABS 1 tablet orally daily CANAGLIFLOZIN 38768917074 Active Mitch Urbina DO Active MINOXIDIL 2.5 MG TABS 1 tablet daily for high blood pressure 10/23 MINOXIDIL 92281442133 Active Mitch Urbina DO Active MECLIZINE HCL 25 MG TAB 1 po tid 3 days, then 1/2 tab tid 3 days MECLIZINE HCL 74105114714 No Longer Active Corey SEGURA Active ALLOPURINOL 300 MG TABS Take 1 tablet by mouth daily 2 ALLOPURINOL 00355351165 No Longer Active Corey SEGURA Activ e CLONIDINE HCL 0.1 MG TABS 1 po bid 7 days, then 1/2 tab po b id 7 days CLONIDINE HCL 95635731350 No Longer Active Corey SEGURA Active COUMADIN 5 MG TABS 1 tab PO daily WARFARIN SODIUM 09013401402 Active Mitch Urbina DO Active COUMADIN 4 MG TABS 1 tablet daily WARFARIN SODI UM 56633687737 No Longer Active Corey SEGURA Active POLYTRIM 13413-8.1 UNIT/ML-% SOLN 1 drop in affected e ye every 3 hours while awake x 7 days POLYMYXIN B-TRIMETHOPRIM 31163537445 N o Longer Active Corey SEGURA Active LOSARTAN POTASSIUM-HCTZ 100-12.5 MG TABS 1 by mouth da [place] for high blood pressure LOSARTAN POTASSIUM-HCTZ 47261830424 No Longer A ctive Mitch Urbina DO Active LISINOPRIL-HYDROCHLOROTHIAZIDE 20-12.5 MG TABS 1 tab by mouth da rocky LISINOPRIL-HYDROCHLOROTHIAZIDE 14466458177 No Longer Active Mitch luis DO Active LISINOPRIL 20 MG TABS 1 tab po at HS LISINOPRIL 65158970551 No Longer Active Mitch Ambrose Carlitos DO Active COUMADIN 5 MG TABS 1 by mouth every other day WARFARIN SODIUM 34284581044 No Longer Active Mitch Urbina DO Active COUMADIN 6 MG TABS 1 by mouth every other day WARFARIN SODIUM 15039851646 No Longer Active Mitch Urbina DO Active SIMVASTATIN 40 MG TABS 1 tab daily at bedtime S IMVASTATIN 14821952599 Active Mitch Ambrose Carlitos DO Active SIMVASTATIN 20 MG TABS 1 tab daily at bedtime S IMVASTATIN 61487318790 No Longer Active Mitch Arnol Urbina DO Active LOVENOX 100 MG/ML SC SOLN One injection twice a day 09/15/15 ENOXAPARIN SODIUM 59535013527 No Longer Active Carmine Navarrete ctive JANUVIA 50 MG TABS Take one by mouth daily DIEGO GLIPTIN PHOSPHATE 55689107123 Active Mitch Urbina DO Active JANUVIA 100 MG TABS 1/2 by mouth every day DIEGO GLIPTIN PHOSPHATE 79025320063 No Longer Active Bijal Segal RN Active METFORMIN HCL 500 MG TABS 2 by mouth twice daily METFORMIN HCL 83788718658 Active Mitch Ambrose Carlitos DO Active GLIMEPIRIDE 4 MG TABS 1 tab po bid GLIMEPIRIDE 293583 78256 Active Mitch Ambrose Carlitos DO Active COLCRYS 0.6 MG TABS 1 po q 6 hours prn gout pain 03/02 COLCHICINE 51211440535 No Longer Active Camila Reese Active LISINOPRIL 5 MG TABS 1 by mouth every day LISIN OPRIL 65116857507 No Longer Active Nguyen Perez Active KLOR-CON 20 MEQ PACK Take one by mouth daily 8 POTASSIUM CHLORIDE 19279518293 No Longer Active Nguyen Perez Active FUROSEMIDE 40 MG TABS 1 by mouth daily FUROSEMI DE 50764128355 No Longer Active Nguyenmac Perez Active PROVIGIL 200 MG TABS 1/2 tab po q day MODAFINIL 70091 674462 Active Mitch Urbina DO Active PROVIGIL 100 MG TABS Take one by mouth daily MO DAFINIL 13992988834 No Longer Active Mitch Urbina DO Active BACTRIM DS 800-160 MG TAB 1 tab by mouth twice daily 2 TRIMETHOPRIM-SULFAMETHOXAZOLE 77193062727 No Longer Active Renan Hays MD Active FAMOTIDINE 20 MG TABS by mouth twice a day FAMOTI DINE 46896496046 Active Mitch Urbina DO Active ADULT ASPIRIN LOW STRENGTH 81 MG TBDP 1 by mouth every daily ASPIRIN 20056462790 Active Mitch Urbina DO Active METOPROLOL TARTRATE 50 MG TABS 1 by mouth twice daily METOPROLOL TARTRATE 75945424955 Active Mitch Urbina DO Active BACTRIM DS 800-160 MG TAB 1 tab by mouth twice daily 2 BACTRIM DS 800-160 MG TAB 274892 TRIMETHOPRIM-SULFAMETHOXAZOLE Inac tive PROVIGIL 100 MG TABS Take one by mouth daily 4 PROVIGIL 100 MG TABS 848705 MODAFINIL Inactive FUROSEMIDE 40 MG TABS 1 by mouth daily FU ROSEMIDE 40 MG TABS 375374 FUROSEMIDE Inactive KLOR-CON 20 MEQ PACK Take one by mouth daily 8 KLOR-CON 20 MEQ PACK 0759015 POTASSIUM CHLORIDE Inactive LISINOPRIL 5 MG TABS 1 by mouth every day LISINOPRIL 5 MG TABS 044048 LISINOPRIL Inactive COLCRYS 0.6 MG TABS 1 po q 6 hours prn gout pain 03/02 COLCRYS 0.6 MG TABS 588102 COLCHICINE Inactive JANUVIA 100 MG TABS 1/2 by mouth every day JANUVI A 100 MG TABS SITAGLIPTIN PHOSPHATE Inactive SIMVASTATIN 20 MG TABS 1 tab daily at bedtime SIMVASTATIN 20 MG TABS 504915 SIMVASTATIN Inactive COUMADIN 6 MG TABS 1 by mouth every other day COUMADIN 6 MG TABS 900055 WARFARIN SODIUM Inactive COUMADIN 5 MG TABS 1 by mouth every other day COUMADIN 5 MG TABS 228072 WARFARIN SODIUM Inactive LISINOPRIL 20 MG TABS 1 tab po at HS [place] NOPRIL 20 MG TABS 917931 LISINOPRIL Inactive LISINOPRIL-HYDROCHLOROTHIAZIDE 20-12.5 MG TABS 1 tab by mouth da rocky LISINOPRIL-HYDROCHLOROTHIAZIDE 20-12.5 MG TABS 821515 LISINOPRIL-HYDROCHLOROTHIAZIDE Inactive POLYTRIM 72366-5.1 UNIT/ML-% SOLN 1 drop in affected e ye every 3 hours while awake x 7 days POLYTRIM 52124-0.1 UNIT/ML-% SOLN 69038 7 POLYMYXIN B-TRIMETHOPRIM Inactive COUMADIN 4 MG TABS 1 tablet daily COUMADIN 4 MG TABS 880303 WARFARIN SODIUM Inactive CLONIDINE HCL 0.1 MG TABS 1 po bid 7 days, then 1/2 tab po b id 7 days CLONIDINE HCL 0.1 MG TABS 811190 CLONIDINE HCL I nactive ALLOPURINOL 300 MG TABS Take 1 tablet by mouth daily 2 ALLOPURINOL 300 MG TABS 264461 ALLOPURINOL Inactive MECLIZINE HCL 25 MG TAB 1 po tid 3 days, then 1/2 tab tid 3 days MECLIZINE HCL 25 MG TAB 271507 MECLIZINE HCL Inactive AMLODIPINE BESYLATE 5 MG TABS 1 tablet by mouth daily AMLODIPINE BESYLATE 5 MG TABS 685783 AMLODIPINE BESYLATE Inactive LOVENOX 100 MG/ML SC SOLN One injection twice a day 09/15/15 LOVENOX 100 MG/ML [facility] 164068 ENOXAPARIN SODIUM Inactive Vital Signs Date Name [...] Range Description Chart Maintenance: hemoccult added to [facility] - Chemistry occult blood, stool (E&M) Positive Lab Report: Basic Metabolic Panel - Chem istry sodium, serum 139 mmol/L 403-409 6823/07/17 potassium, serum 4.2 mmol/L 3.5-5.2 chloride, serum [...] ... - Chemistry sodium, serum 144 mmol/L 195-061 4406/06/12 carbon dioxide, venous blood 26.6 mmol/L 21.0-32 [...] CBC - Chemistry cholesterol, serum 136 mg/dL 320-961 1359/08/09 triglyceride, serum, fasting 187 mg/dL 30-200 HDL [...] 1.0-3.5 Encounters Code Encounter Date Provider Facility CPT-31101 Level 4 Est. Patient 09:30:18 CDT Mitch luis DO [facility] CPT-09248 Level 3 Est. Patient 15:10:14 CDT Joe kamara [facility] CPT-51990 Level 3 Est. Patient 15:03:46 CDT Joe kamara [facility]-94749 Level 3 Est. Patient 14:21:06 CDT Mitch W L ee [facility]-19383 Level 3 Est. Patient 14:52:06 CDT Joe kamara [facility]-36224 Level 3 Est. Patient 09:34:30 MANAGER CULINARY Mitch Ambrose L janelle [facility] CPT-53407 Level 3 Est. Patient 09:37:15 CDT Mitch W L ee [facility]-07526 Level 3 Est. Patient 17:01:00 MANAGER CULINARY Mitch W L ee [facility] CPT-90142 Level 3 Est. Patient 13:53:19 MANAGER CULINARY Mitch W L janelle [facility] CPT-80080 Level 3 Est. Patient 19:19:37 MANAGER CULINARY Mitch Ambrose L janelle [facility] CPT-10364 Level 3 Est. Patient 13:25:53 MANAGER CULINARY Tavo touer MD [facility]-79125 Level 3 Est. Patient 18:17:28 CDT Mitch W L ee [facility] CPT-48509 Level 3 Est. Patient 15:22:57 CDT Mitch W L janelle [facility]-99596 Level 3 Est. Patient 18:21:50 CDT Mitch W L ee [facility]-01205 Level 3 Est. Patient 18:20:38 CDT Mitch W L ee [facility] CPT-90407 Level 3 Est. Patient 15:37:55 CDT Mitch W L ee [facility] CPT-10055 Level 2 Est. Patient 15:54:44 CDT Carmine benton MD [facility]-58010 Level 3 Est. Patient 21:46:01 MANAGER CULINARY Mitch Ambrose L ee [facility] CPT-98559 Level 3 Est. Patient 22:15:50 CDT Mitch luis [facility] CPT-09908 Level 3 Est. Patient 10:48:15 CDT Mitch luis [facility] CPT-52580 Level 3 Est. Patient 23:20:57 CDT Tavo toure MD [facility] CPT-99423 Level 3 Est. Patient 16:26:13 CDT Mitch luis [facility] Procedures Code Procedure Name Date Entry Date Standard Desc ription CPT-73842 Venipuncture Draw Fee 09:26:17 CDT CPT-03963 PT/INR - LAB USE ONLY 13:32:49 MANAGER CULINARY CPT-20000 Venipuncture Draw Fee 13:32:49 MANAGER CULINARY CPT-30014 PT/INR - LAB USE ONLY 10:34:49 MANAGER CULINARY CPT-12018 Venipuncture Draw Fee 10:34:48 MANAGER CULINARY CPT-18653 PT/INR - LAB USE ONLY 09:22:03 MANAGER CULINARY CPT-46463 Venipuncture Draw Fee 09:22:02 MANAGER CULINARY CPT-80533 Hemoccult IFOBT - LAB USE ONLY 10:27:22 CDT CPT-00120 Venipuncture Draw Fee 08:27:08 CDT CPT-11137 Liver Profile - LAB USE ONLY 08:27:07 CDT 2 CPT-24135 Microalbumin - LAB USE ONLY 08:27:07 CDT 20 25/05/09 CPT-19901 PT/INR - LAB USE ONLY 08:27:07 CDT CPT-36868 HGBA1C - LAB USE ONLY 08:27:07 CDT CPT-39918 CBC - LAB USE ONLY 08:27:07 CDT CPT-81291 Venipuncture Draw Fee 11:09:14 CDT CPT-50761 Venipuncture Draw Fee 08:32:21 MANAGER CULINARY CPT-13783 Venipuncture Draw Fee 09:38:56 MANAGER CULINARY CPT-84696 No Charge Offi Visit 21:36:07 CDT 1 CPT-38215 Venipuncture Draw Fee 10:13:28 MANAGER CULINARY CPT-13173 Venipuncture Draw Fee 08:31:11 CDT CPT-24728 Aspir/Inject Med Joint 18:17:28 CDT CPT-94539 Venipuncture Draw Fee 10:13:30 CDT CPT-64776 Venipuncture Draw Fee 08:31:43 MANAGER CULINARY CPT-JTINJ Joint Injection 18:34:50 CDT CPT-32681 Knee 3V 12:25:09 CDT CPT-50764 Venipuncture Draw Fee 12:15:57 CDT CPT-060 Medical Surveillance Exam 21:31:43 CDT 2011 CPT-16320 Venipuncture Draw Fee 08:32:05 MANAGER CULINARY CPT-OV Office Visit 18:19:06 CDT
--- OUTSIDE RECORDS SUMMARY | 2020-01-18 13:23 | XMS REPORT | Clinical Summary ---
Author Author Admin, Mitch Leon Organization [facility] Address Unknown Phone Unavailable Allergies, Adverse Reactions, [...] atherosclerosis of unspecified type of vessel, [place] or graft EDEMA 782.3 Resolved Mitch [...] ORAL TABLET 1 po BID GLIMEPIRID E 52283091385 Active Ana Wallace Active KEFLEX 500 MG ORAL CAPSULE 1 po qid CEPHALEXI N 61401191661 No Longer Active Mitch Urbina DO Active LOSARTAN POTASSIUM 100 MG ORAL TABLET 1 pill by mouth daily, for blood pressure LOSARTAN POTASSIUM 12882606481 Active Ana Wallace Active AMLODIPINE BESYLATE 5 MG ORAL TABLET 1 tablet by mouth daily 201 01/20/04 AMLODIPINE BESYLATE 26789169124 No Longer Active Devonjustincarlitos [place] ANNIE Active MITIGARE 0.6 MG ORAL CAPSULE 2 capsules at onset of go ut pain, then take one capsule at 1 hour if symptoms persist. COLCHICINE 59 144476213 Active Mitch Urbina DO Active COUMADIN 1 MG ORAL TABLET 2 tabs orally daily with the 5mg tab to equal 7mg daily WARFARIN SODIUM 11409941184 Active Ana Wallace Active COLCRYS 0.6 MG ORAL TABLET 1 tab qid prn gout C OLCHICINE 35539546987 Active Norma Cazares Active INVOKANA 100 MG ORAL TABLET 1 tablet orally daily CANAGLIFLOZIN 11152031908 Active Mitch Urbina DO Active MINOXIDIL 2.5 MG ORAL TABLET 1 tablet daily for high blood press ure MINOXIDIL 75641738983 Active Mitch Urbina DO Active MECLIZINE HCL 25 MG ORAL TABLET 1 po tid 3 days, then 1/2 ta b tid 3 days MECLIZINE HCL 61525149905 No Longer Active Corey SEGURA Active ALLOPURINOL 300 MG ORAL TABLET Take 1 tablet by mouth daily 2012 ALLOPURINOL 38030398824 No Longer Active Corey SEGURA Active CLONIDINE HCL 0.1 MG ORAL TABLET 1 po bid 7 days, then 1/2 t ab po bid 7 days CLONIDINE HCL 69039140003 No Longer Active Corey SEGURA Active COUMADIN 5 MG ORAL TABLET 1 tab PO daily WARFAR IN SODIUM 25681561215 Active Mitch Urbina DO Active COUMADIN 4 MG ORAL TABLET 1 tablet daily WARFAR IN SODIUM 36106164426 No Longer Active Corey SEGURA Active POLYTRIM 28202-5.1 UNIT/ML-% OPHTHALMIC SOLUTION 1 rui p in affected eye every 3 hours while awake x 7 days POLYMYXIN B-TRIMETHOP RIM 04518480455 No Longer Active Corey SEGURA Active LOSARTAN POTASSIUM-HCTZ 100-12.5 MG ORAL TABLET 1 by m outh daily for high blood pressure LOSARTAN POTASSIUM-HCTZ 94985811937 No Longer A ctive Mitch Urbina DO Active LISINOPRIL-HYDROCHLOROTHIAZIDE 20-12.5 MG ORAL TABLET 1 tab by m outh daily LISINOPRIL-HYDROCHLOROTHIAZIDE 65386361492 No Longer Active Mitch Urbina DO Active LISINOPRIL 20 MG ORAL TABLET 1 tab po at HS LIS INOPRIL 28591572335 No Longer Active Mitch Urbina DO Active COUMADIN 5 MG ORAL TABLET 1 by mouth every other day 2 WARFARIN SODIUM 03329739518 No Longer Active Mitch Urbina DO Active COUMADIN 6 MG ORAL TABLET 1 by mouth every other day 2 WARFARIN SODIUM 32803198476 No Longer Active Mitch Urbina DO Active SIMVASTATIN 40 MG ORAL TABLET 1 tab daily at bedtime SIMVASTATIN 39549080515 Active Mitch Urbina DO Active SIMVASTATIN 20 MG ORAL TABLET 1 tab daily at bedtime 2 SIMVASTATIN 91636896054 No Longer Active Mitch Urbina DO Active LOVENOX 100 MG/ML SUBCUTANEOUS SOLUTION One injection twice a da y ENOXAPARIN SODIUM 93303686426 No Longer Active Carmine Yusuf MD Active JANUVIA 50 MG ORAL TABLET Take one by mouth daily SITAGLIPTIN PHOSPHATE 48807043350 Active Mitch Urbina DO Active JANUVIA 100 MG ORAL TABLET 1/2 by mouth every day 2011 SITAGLIPTIN PHOSPHATE 75478770969 No Longer Active Bijal Segal RN Acti ve METFORMIN HCL 500 MG ORAL TABLET 2 by mouth twice daily METFORMIN HCL 08450698676 Active Mitch Urbina DO Active COLCRYS 0.6 MG ORAL TABLET 1 po q 6 hours prn gout pain COLCHICINE 48433275190 No Longer Active Camila Reese Active LISINOPRIL 5 MG ORAL TABLET 1 by mouth every day 11/17 LISINOPRIL 00962556493 No Longer Active Nguyen Coekman Active KLOR-CON 20 MEQ ORAL PACKET Take one by mouth daily 09/10/08 POTASSIUM CHLORIDE 02248750292 No Longer Active Nguyen Perez Active FUROSEMIDE 40 MG ORAL TABLET 1 by mouth daily F UROSEMIDE 46944094847 No Longer Active Nguyen Coekman Active PROVIGIL 200 MG ORAL TABLET 1/2 tab po q day MODA FINIL 45872082036 Active Mitch Urbina DO Active PROVIGIL 100 MG ORAL TABLET Take one by mouth daily 08/20/04 MODAFINIL 81479704460 No Longer Active Mitch Urbina DO Active BACTRIM DS 800-160 MG ORAL TABLET 1 tab by mouth twice daily 201 10/19/09 TRIMETHOPRIM-SULFAMETHOXAZOLE 61086378138 No Longer Active Elian Hays MD Active FAMOTIDINE 20 MG ORAL TABLET by mouth twice a day FAMOTIDINE 03174335683 Active Mitch Urbina DO Active ADULT ASPIRIN LOW STRENGTH 81 MG ORAL TABLET DISINTEGR ATING 1 by mouth every daily ASPIRIN 29124837117 Active Mitch Urbina DO Ac tive METOPROLOL TARTRATE 50 MG ORAL TABLET 1 by mouth twice daily METOPROLOL TARTRATE 22226268094 Active Mitch Urbina DO Active BACTRIM DS 800-160 MG ORAL TABLET 1 tab by mouth twice daily 201 10/19/09 BACTRIM DS 800-160 MG ORAL TABLET 651226 TRIMETHOPRIM-SULFAMETHOXAZOLE Inactive PROVIGIL 100 MG ORAL TABLET Take one by mouth daily 08/20/04 PROVIGIL 100 MG ORAL TABLET 129448 MODAFINIL Inactive FUROSEMIDE 40 MG ORAL TABLET 1 by mouth daily FUROSEMIDE 40 MG ORAL TABLET 998874 FUROSEMIDE Inactive KLOR-CON 20 MEQ ORAL PACKET Take one by mouth daily 09/10/08 KLOR- CON 20 MEQ ORAL PACKET 0847451 POTASSIUM CHLORIDE Inactive LISINOPRIL 5 MG ORAL TABLET 1 by mouth every day 11/17 LISINOPRIL 5 MG ORAL TABLET 501886 LISINOPRIL Inactive COLCRYS 0.6 MG ORAL TABLET 1 po q 6 hours prn gout pain COLCRYS 0.6 MG ORAL TABLET 583452 COLCHICINE Inactive JANUVIA 100 MG ORAL TABLET 1/2 by mouth every day 2011 JANUVIA 100 MG ORAL TABLET SITAGLIPTIN PHOSPHATE Inactive SIMVASTATIN 20 MG ORAL TABLET 1 tab daily at bedtime 2 SIMVASTATIN 20 MG ORAL TABLET 565703 SIMVASTATIN Inactive COUMADIN 6 MG ORAL TABLET 1 by mouth every other day 2 COUMADIN 6 MG ORAL TABLET 040446 WARFARIN SODIUM Inactive COUMADIN 5 MG ORAL TABLET 1 by mouth every other day 2 COUMADIN 5 MG ORAL TABLET 374995 WARFARIN SODIUM Inactive LISINOPRIL 20 MG ORAL TABLET 1 tab po at HS LISINOPRIL 20 MG ORAL TABLET 103893 LISINOPRIL Inactive LISINOPRIL-HYDROCHLOROTHIAZIDE 20-12.5 MG ORAL TABLET 1 tab by m outh daily LISINOPRIL-HYDROCHLOROTHIAZIDE 20-12.5 MG ORAL TABLET 530039 LISINOPRIL-HYDROCHLOROTHIAZIDE Inactive POLYTRIM 76813-1.1 UNIT/ML-% OPHTHALMIC SOLUTION 1 rui p in affected eye every 3 hours while awake x 7 days POLYTRIM 1000 0-0.1 UNIT/ML-% OPHTHALMIC SOLUTION 068935 POLYMYXIN B-TRIMETHOPRIM Inactive COUMADIN 4 MG ORAL TABLET 1 tablet daily COUMADIN 4 MG ORAL TABLET 652744 WARFARIN SODIUM Inactive CLONIDINE HCL 0.1 MG ORAL TABLET 1 po bid 7 days, then 1/2 t ab po bid 7 days CLONIDINE HCL 0.1 MG ORAL TABLET 625215 CLONIDIN E HCL Inactive ALLOPURINOL 300 MG ORAL TABLET Take 1 tablet by mouth daily 2012 ALLOPURINOL 300 MG ORAL TABLET 019402 ALLOPURINOL I nactive MECLIZINE HCL 25 MG ORAL TABLET 1 po tid 3 days, then 1/2 ta b tid 3 days MECLIZINE HCL 25 MG ORAL TABLET 894687 MECLIZINE HCL Inactive AMLODIPINE BESYLATE 5 MG ORAL TABLET 1 tablet by mouth daily 201 01/20/04 AMLODIPINE BESYLATE 5 MG ORAL TABLET 519688 AMLODIPINE BESYLATE Inactive KEFLEX 500 MG ORAL CAPSULE 1 po qid K EFLEX 500 MG ORAL CAPSULE 381625 CEPHALEXIN Inactive LOVENOX 100 MG/ML SUBCUTANEOUS SOLUTION One injection twice a da y LOVENOX 100 MG/ML SUBCUTANEOUS SOLUTION 247161 ENOXAPAR IN SODIUM Inactive Vital Signs Date [...] Report: Basic Metabolic Panel - Chem istry chloride, serum 102 mmol/L 98-107 sodium, serum 139 mmol/L 476-565 6889/07/17 potassium, serum 4.2 mmol/L 3.5-5.2 urea nitrogen, blood 29 mg/dL 7-18 creatinine, serum 1.24 mg/dL 0.60-1.30 carbon dioxide, venous blood 28.9 mmol/L 21.0-32 .0 blood glucose 211 mg/dL 65-110 calcium, serum 10.6 mg/dL 8.5-10.1 sodium, serum 141 mmol/L 161-567 9809/08/07 urea nitrogen, blood 26 mg/dL 7-18 creatinine, [...] RBC 28.6 pg 27. 0-31.2 mean corpuscular volume, RBC 86 fL 80-97 hematocrit, blood 43.9 % 40.0-54.0 hemoglobin, blood 14.6 g/dL 14.0-18.0 erythrocyte (RBC) count 5.10 10^6/MM^3 10*6/mm3 4.50-6.5 0 mean corpuscular hemoglobin concentration, RBC 33.2 G/DL % 31.8-35.4 red blood cell distribution width 14.9 % 11 .6-14.8 platelet count 216 10^3/MM^3 10*3/mm3 142-424 Lab Report: CBC, MICROALB/CREAT W/RATIO - Lab microalbumin, urine 10 mg/L 0-19 Lab Report: Comp. Metabolic Panel, Thyro id Stimulating Hormone (L), Pros ... - Chemistry alanine aminotransferase (SGPT), serum 32 U/L aspartate aminotransferase (SGOT), serum 27 U/L - calcium, serum 10.5 mg/dL 8.5-10.1 bilirubin, serum, total 0.70 mg/dL 0.00-1.00 TSH 2.49 m[iU]/mL 0.36-3.74 prostate specific antigen 3.14 ng/mL 0.00-4.00 sodium, serum 144 mmol/L 018-026 4925/06/12 carbon dioxide, venous blood 26.6 mmol/L 21.0-32 .0 potassium, serum 4.2 mmol/L 3.5-5.2 chloride, serum 105 mmol/L 98-107 blood glucose 192 mg/dL 65-110 urea nitrogen, blood 27 mg/dL 7-18 creatinine, serum 1.32 mg/dL 0.55-1.30 Lab Report: Lipid Panel, HEPATIC PANEL, HGBA1C - Chemistry aspartate aminotransferase (SGOT), serum 22 U/L 15-37 alanine aminotransferase (SGPT), serum 30 U/L 12-78 cholesterol, serum 136 mg/dL 522-975 1547/12/06 triglyceride, serum, fasting 247 mg/dL 30-200 HDL cholesterol, serum 41 mg/dL 32-60 LDL cholesterol, serum 46 mg/dL 0-130 bilirubin, serum, total 0.80 mg/dL 0.00-1.00 hemoglobin A1C, blood, as % of total hemoglobin 6.4 % 4.3-6.0 Lab Report: Prothrombin Time - Coagulati on prothrombin time (patient) 19.9 SECS s 11.1-13.4 international normalized ratio (INR) 2.7 1.0-3.5 prothrombin time (patient) 21.3 SECS s 11.1-13.4 international normalized ratio (INR) 2.4 1.0-3.5 Encounters Code Encounter Date Provider Facility CPT-76327 Level 3 Est. Patient 18:25:53 CDT Mitch luis [facility] CPT-29285 Level 3 Est. Patient 19:43:34 CDT Mitch luis [facility] CPT-95295 Level 4 Est. Patient 09:30:18 CDT Mitch luis [facility] CPT-55110 Level 3 Est. Patient 15:10:14 CDT Joe Gomez [facility] CPT-83101 Level 3 Est. Patient 15:03:46 CDT Joe kamara [facility] CPT-47725 Level 3 Est. Patient 14:21:06 CDT Mitch luis [facility] CPT-55442 Level 3 Est. Patient 14:52:06 CDT Joe kamara [facility] CPT-78742 Level 3 Est. Patient 09:34:30 HEAD OF PHYSICS Mitch luis [facility] CPT-90371 Level 3 Est. Patient 09:37:15 CDT Micth W L ee [facility] CPT-61860 Level 3 Est. Patient 17:01:00 HEAD OF PHYSICS Mitch W L ee DO [facility] CPT-60246 Level 3 Est. Patient 13:53:19 HEAD OF PHYSICS Mitch W L ee DO [facility] CPT-11900 Level 3 Est. Patient 19:19:37 HEAD OF PHYSICS Mitch W L ee DO [facility] CPT-38764 Level 3 Est. Patient 13:25:53 HEAD OF PHYSICS Tavo toure MD [facility] CPT-13196 Level 3 Est. Patient 18:17:28 CDT Mitch W L ee [facility] CPT-56929 Level 3 Est. Patient 15:22:57 CDT Mitch W L ee [facility] CPT-73974 Level 3 Est. Patient 18:21:50 CDT Mitch W L ee [facility] CPT-35070 Level 3 Est. Patient 18:20:38 CDT Mitch W L ee [facility] CPT-34823 Level 3 Est. Patient 15:37:55 CDT Mitch W L ee [facility] CPT-46546 Level 2 Est. Patient 15:54:44 CDT Carmine benton MD [facility]-82120 Level 3 Est. Patient 21:46:01 HEAD OF PHYSICS Mitch W L ee [facility] CPT-42588 Level 3 Est. Patient 22:15:50 CDT Mitch W L ee [facility] CPT-72655 Level 3 Est. Patient 10:48:15 CDT Mitch W L ee [facility] CPT-12811 Level 3 Est. Patient 23:20:57 CDT Tavo toure MD [facility] CPT-91471 Level 3 Est. Patient 16:26:13 CDT Mitch Csatellano [facility] Procedures Code Procedure Name Date Entry Date Standard Desc ription CPT-33847 Venipuncture Draw Fee 09:26:17 CDT CPT-90494 PT/INR - LAB USE ONLY 13:32:49 HEAD OF PHYSICS CPT-55730 Venipuncture Draw Fee 13:32:49 HEAD OF PHYSICS CPT-52592 PT/INR - LAB USE ONLY 10:34:49 HEAD OF PHYSICS CPT-96825 Venipuncture Draw Fee 10:34:48 HEAD OF PHYSICS CPT-10050 PT/INR - LAB USE ONLY 09:22:03 HEAD OF PHYSICS CPT-16046 Venipuncture Draw Fee 09:22:02 HEAD OF PHYSICS CPT-26455 Hemoccult IFOBT - LAB USE ONLY 10:27:22 CDT CPT-49160 Venipuncture Draw Fee 08:27:08 CDT CPT-14421 Liver Profile - LAB USE ONLY 08:27:07 CDT 2 CPT-52245 Microalbumin - LAB USE ONLY 08:27:07 CDT 20 25/05/09 CPT-51125 PT/INR - LAB USE ONLY 08:27:07 CDT CPT-46679 HGBA1C - LAB USE ONLY 08:27:07 CDT CPT-74241 CBC - LAB USE ONLY 08:27:07 CDT CPT-74777 Venipuncture Draw Fee 11:09:14 CDT CPT-09955 Venipuncture Draw Fee 08:32:21 HEAD OF PHYSICS CPT-19311 Venipuncture Draw Fee 09:38:56 HEAD OF PHYSICS CPT-31335 No Charge Offi Visit 21:36:07 CDT 1 CPT-34792 Venipuncture Draw Fee 10:13:28 HEAD OF PHYSICS CPT-65096 Venipuncture Draw Fee 08:31:11 CDT CPT-45710 Aspir/Inject Med Joint 18:17:28 CDT CPT-89352 Venipuncture Draw Fee 10:13:30 CDT CPT-89335 Venipuncture Draw Fee 08:31:43 HEAD OF PHYSICS CPT-JTINJ Joint Injection 18:34:50 CDT CPT-20635 Knee 3V 12:25:09 CDT CPT-58227 Venipuncture Draw Fee 12:15:57 CDT CPT-060 Medical Surveillance Exam 21:31:43 CDT 2011 CPT-29667 Venipuncture Draw Fee 08:32:05 HEAD OF PHYSICS CPT-OV Office Visit 18:19:06 CDT
--- OUTSIDE RECORDS SUMMARY | 2020-01-18 13:23 | XMS REPORT | Clinical Summary ---
Author Author Admin, Mitch Leon Organization [facility] Address Unknown Phone Unavailable Allergies, Adverse Reactions, [...] atherosclerosis of unspecified type of vessel, [place] or graft EDEMA 782.3 Resolved Mitch [...] by mouth twice a day 2017 FAMOTIDINE 44091036667 No Longer Active Mitch Urbina DO Active COLCRYS 0.6 MG ORAL TABLET 1 tab qid prn gout C OLCHICINE 55919839895 No Longer Active Mitch Urbina DO Active GLIMEPIRIDE 2 MG ORAL TABLET 1 po BID GLIMEPIRID E 49330220294 Active Renee [facility] Active KEFLEX 500 MG ORAL CAPSULE 1 po qid CEPHALEXI N 56498179822 No Longer Active Mitch Urbina DO Active LOSARTAN POTASSIUM 100 MG ORAL TABLET 1 pill by mouth daily, for blood pressure LOSARTAN POTASSIUM 68533090013 Active Ana Wallace Active AMLODIPINE BESYLATE 5 MG ORAL TABLET 1 tablet by mouth daily 201 01/20/04 AMLODIPINE BESYLATE 76313595842 No Longer Active Joe fulton APRN Active MITIGARE 0.6 MG ORAL CAPSULE 2 capsules at onset of go ut pain, then take one capsule at 1 hour if symptoms persist. COLCHICINE 59 887819462 Active Mitch Urbina DO Active COUMADIN 1 MG ORAL TABLET 2 tabs orally daily with the 5mg tab to equal 7mg daily WARFARIN SODIUM 88783202132 Active Ana Wallace Active INVOKANA 100 MG ORAL TABLET 1 tablet orally daily CANAGLIFLOZIN 90800926986 Active Mitch Urbina DO Active MINOXIDIL 2.5 MG ORAL TABLET 1 tablet daily for high blood press ure MINOXIDIL 46065855302 Active Mitch Urbina DO Active MECLIZINE HCL 25 MG ORAL TABLET 1 po tid 3 days, then 1/2 ta b tid 3 days MECLIZINE HCL 07041103467 No Longer Active Corey SEGURA Active ALLOPURINOL 300 MG ORAL TABLET Take 1 tablet by mouth daily 2012 ALLOPURINOL 53138133287 No Longer Active Corey SEGURA Active CLONIDINE HCL 0.1 MG ORAL TABLET 1 po bid 7 days, then 1/2 t ab po bid 7 days CLONIDINE HCL 43135314703 No Longer Active Corey SEGURA Active COUMADIN 5 MG ORAL TABLET 1 tab PO daily WARFAR IN SODIUM 59255946170 Active Mitch Urbina DO Active COUMADIN 4 MG ORAL TABLET 1 tablet daily WARFAR IN SODIUM 84431769339 No Longer Active Corey SEGURA Active POLYTRIM 22912-1.1 UNIT/ML-% OPHTHALMIC SOLUTION 1 rui p in affected eye every 3 hours while awake x 7 days POLYMYXIN B-TRIMETHOP RIM 51147092418 No Longer Active Corey SEGURA Active LOSARTAN POTASSIUM-HCTZ 100-12.5 MG ORAL TABLET 1 by m outh daily for high blood pressure LOSARTAN POTASSIUM-HCTZ 85188299575 No Longer A ctive Mitch Urbina DO Active LISINOPRIL-HYDROCHLOROTHIAZIDE 20-12.5 MG ORAL TABLET 1 tab by m outh daily LISINOPRIL-HYDROCHLOROTHIAZIDE 93990459654 No Longer Active Mitch Urbina DO Active LISINOPRIL 20 MG ORAL TABLET 1 tab po at HS LIS INOPRIL 18920611886 No Longer Active Mitch Urbina DO Active COUMADIN 5 MG ORAL TABLET 1 by mouth every other day 2 WARFARIN SODIUM 90660058706 No Longer Active Mitch Urbina DO Active COUMADIN 6 MG ORAL TABLET 1 by mouth every other day 2 WARFARIN SODIUM 33587706666 No Longer Active Mitch Urbina DO Active SIMVASTATIN 40 MG ORAL TABLET 1 tab daily at bedtime SIMVASTATIN 42120971781 Active Mitch Ubrina DO Active SIMVASTATIN 20 MG ORAL TABLET 1 tab daily at bedtime 2 SIMVASTATIN 68126462308 No Longer Active Mitch Urbina DO Active LOVENOX 100 MG/ML SUBCUTANEOUS SOLUTION One injection twice a da y ENOXAPARIN SODIUM 71651273039 No Longer Active Carmine Yusuf MD Active JANUVIA 50 MG ORAL TABLET Take one by mouth daily SITAGLIPTIN PHOSPHATE 27429471572 Active Mitch W Carlitos DO Active JANUVIA 100 MG ORAL TABLET 1/2 by mouth every day 2011 SITAGLIPTIN PHOSPHATE 74344781386 No Longer Active Bijal Segal RN Acti ve METFORMIN HCL 500 MG ORAL TABLET 2 by mouth twice daily METFORMIN HCL 03017206350 Active Mitch Arnol Urbina DO Active COLCRYS 0.6 MG ORAL TABLET 1 po q 6 hours prn gout pain COLCHICINE 92190368795 No Longer Active Camila Reese Active LISINOPRIL 5 MG ORAL TABLET 1 by mouth every day 11/17 LISINOPRIL 86732423199 No Longer Active Nguyen Perez Active KLOR-CON 20 MEQ ORAL PACKET Take one by mouth daily 09/10/08 POTASSIUM CHLORIDE 02984381417 No Longer Active Nguyen Perez Active FUROSEMIDE 40 MG ORAL TABLET 1 by mouth daily F UROSEMIDE 72450772038 No Longer Active Nguyen Perez Active PROVIGIL 200 MG ORAL TABLET 1/2 tab po q day MODA FINIL 65090391693 Active Renee Elvin BURNETTN Active PROVIGIL 100 MG ORAL TABLET Take one by mouth daily 08/20/04 MODAFINIL 36921350533 No Longer Active Mitch Urbina DO Active BACTRIM DS 800-160 MG ORAL TABLET 1 tab by mouth twice daily 201 10/19/09 TRIMETHOPRIM-SULFAMETHOXAZOLE 87940486734 No Longer Active C alberto Hays MD Active ADULT ASPIRIN LOW STRENGTH 81 MG ORAL TABLET DISINTEGR ATING 1 by mouth every daily ASPIRIN 06359215716 Active Mitch Urbina DO Ac tive METOPROLOL TARTRATE 50 MG ORAL TABLET 1 by mouth twice daily METOPROLOL TARTRATE 45687381802 Active Mitch Urbina DO Active BACTRIM DS 800-160 MG ORAL TABLET 1 tab by mouth twice daily 201 10/19/09 BACTRIM DS 800-160 MG ORAL TABLET 093258 TRIMETHOPRIM-SULFAMETHOXAZOLE Inactive PROVIGIL 100 MG ORAL TABLET Take one by mouth daily 08/20/04 PROVIGIL 100 MG ORAL TABLET 777675 MODAFINIL Inactive FUROSEMIDE 40 MG ORAL TABLET 1 by mouth daily FUROSEMIDE 40 MG ORAL TABLET 034620 FUROSEMIDE Inactive KLOR-CON 20 MEQ ORAL PACKET Take one by mouth daily 09/10/08 KLOR- CON 20 MEQ ORAL PACKET 1579791 POTASSIUM CHLORIDE Inactive LISINOPRIL 5 MG ORAL TABLET 1 by mouth every day 11/17 LISINOPRIL 5 MG ORAL TABLET 187876 LISINOPRIL Inactive COLCRYS 0.6 MG ORAL TABLET 1 po q 6 hours prn gout pain COLCRYS 0.6 MG ORAL TABLET 763444 COLCHICINE Inactive JANUVIA 100 MG ORAL TABLET 1/2 by mouth every day 2011 JANUVIA 100 MG ORAL TABLET SITAGLIPTIN PHOSPHATE Inactive SIMVASTATIN 20 MG ORAL TABLET 1 tab daily at bedtime 2 SIMVASTATIN 20 MG ORAL TABLET 940798 SIMVASTATIN Inactive COUMADIN 6 MG ORAL TABLET 1 by mouth every other day COUMADIN 6 MG ORAL TABLET 996182 WARFARIN SODIUM Inactive COUMADIN 5 MG ORAL TABLET 1 by mouth every other day COUMADIN 5 MG ORAL TABLET 207097 WARFARIN SODIUM Inactive LISINOPRIL 20 MG ORAL TABLET 1 tab po at HS LISINOPRIL 20 MG ORAL TABLET 914713 LISINOPRIL Inactive LISINOPRIL-HYDROCHLOROTHIAZIDE 20-12.5 MG ORAL TABLET 1 tab by m outh daily LISINOPRIL-HYDROCHLOROTHIAZIDE 20-12.5 MG ORAL TABLET 748034 LISINOPRIL-HYDROCHLOROTHIAZIDE Inactive POLYTRIM 90783-0.1 UNIT/ML-% OPHTHALMIC SOLUTION 1 rui p in affected eye every 3 hours while awake x 7 days POLYTRIM 1000 0-0.1 UNIT/ML-% OPHTHALMIC SOLUTION 813471 POLYMYXIN B-TRIMETHOPRIM Inactive COUMADIN 4 MG ORAL TABLET 1 tablet daily COUMADIN 4 MG ORAL TABLET 984486 WARFARIN SODIUM Inactive CLONIDINE HCL 0.1 MG ORAL TABLET 1 po bid 7 days, then 1/2 t ab po bid 7 days CLONIDINE HCL 0.1 MG ORAL TABLET 588796 CLONIDIN E HCL Inactive ALLOPURINOL 300 MG ORAL TABLET Take 1 tablet by mouth daily 2012 ALLOPURINOL 300 MG ORAL TABLET 573375 ALLOPURINOL I nactive MECLIZINE HCL 25 MG ORAL TABLET 1 po tid 3 days, then 1/2 ta b tid 3 days MECLIZINE HCL 25 MG ORAL TABLET 393910 MECLIZINE HCL Inactive AMLODIPINE BESYLATE 5 MG ORAL TABLET 1 tablet by mouth daily 201 01/20/04 AMLODIPINE BESYLATE 5 MG ORAL TABLET 023055 AMLODIPINE BESYLATE Inactive KEFLEX 500 MG ORAL CAPSULE 1 po qid K EFLEX 500 MG ORAL CAPSULE 843310 CEPHALEXIN Inactive COLCRYS 0.6 MG ORAL TABLET 1 tab qid prn gout COLCRYS 0.6 MG ORAL TABLET 230989 COLCHICINE Inactive FAMOTIDINE 20 MG ORAL TABLET by mouth twice a day 2017 FAMOTIDINE 20 MG ORAL TABLET 316715 FAMOTIDINE Inactive LOVENOX 100 MG/ML SUBCUTANEOUS SOLUTION One injection twice a da y LOVENOX 100 MG/ML SUBCUTANEOUS SOLUTION 923562 ENOXAPAR IN SODIUM Inactive Vital Signs Date [...] - Chem istry sodium, serum 139 mmol/L 333-936 5879/07/17 potassium, serum 4.2 mmol/L 3.5-5.2 chloride, serum 102 mmol/L 98-107 carbon dioxide, venous blood 28.9 mmol/L 21.0-32 .0 blood glucose 211 mg/dL 65-110 calcium, serum 10.6 mg/dL 8.5-10.1 urea nitrogen, blood 29 mg/dL 7-18 creatinine, serum 1.24 mg/dL 0.60-1.30 sodium, serum 141 mmol/L 349-416 0807/08/07 potassium, serum 4.5 mmol/L 3.5-5.2 chloride, serum [...] ... - Chemistry sodium, serum 144 mmol/L 536-810 8225/06/12 carbon dioxide, venous blood 26.6 mmol/L 21.0-32 [...] HGBA1C - Chemistry cholesterol, serum 136 mg/dL 081-085 7385/12/06 triglyceride, serum, fasting 247 mg/dL 30-200 HDL cholesterol, serum 41 mg/dL 32-60 LDL cholesterol, serum 46 mg/dL 0-130 aspartate aminotransferase (SGOT), serum 22 U/L 15-37 alanine aminotransferase (SGPT), serum 30 U/L 12-78 bilirubin, serum, total 0.80 mg/dL 0.00-1.00 hemoglobin A1C, blood, as % of total hemoglobin 6.4 % 4.3-6.0 Encounters Code Encounter Date Provider Facility CPT-16766 Level 3 Est. Patient 18:25:53 CDT Mitch luis [facility] CPT-59536 Level 3 Est. Patient 19:43:34 CDT Mitch luis [facility] CPT-45165 Level 4 Est. Patient 09:30:18 CDT Mitch luis [facility] CPT-33729 Level 3 Est. Patient 15:10:14 CDT Joe kamara [facility] [place] CPT-70459 Level 3 Est. Patient 15:03:46 CDT Joe kamara [facility] CPT-70647 Level 3 Est. Patient 14:21:06 CDT Mitch luis [facility] CPT-72226 Level 3 Est. Patient 14:52:06 [facility] Est[facility] Patient 09:34:30 TOE SEWER Mitch luis -05023 Level 3 Est. Patient 09:37:15 CDT Mitch Ambrose L janelle -76619 Level 3 Est. Patient 17:01:00 TOE SEWER Mitch Ambrose L janelle [facility] CPT-19636 Level 3 Est. Patient 13:53:19 TOE SEWER Mitch W L janelle [facility] CPT-99022 Level 3 Est. Patient 19:19:37 TOE SEWER Mitch W L janelle [facility] CPT-98084 Level 3 Est. Patient 13:25:53 TOE SEWER Tavo toure MD [facility]-55554 Level 3 Est. Patient 18:17:28 CDT Mitch luis [facility] CPT-08622 Level 3 Est. Patient 15:22:57 CDT Mitch W L janelle -17570 Level 3 Est. Patient 18:21:50 CDT Mitch Arnol L janelle [facility] CPT-91792 Level 3 Est. Patient 18:20:38 CDT Mitch Arnol L janelle -48365 Level 3 Est. Patient 15:37:55 CDT Mitch W L janelle [facility] CPT-18896 Level 2 Est. Patient 15:54:44 CDT Carmine benton MD [facility]-76953 Level 3 Est. Patient 21:46:01 TOE SEWER Mitch W L janelle [facility]-50079 Level 3 Est. Patient 22:15:50 CDT Mitch W L janelle [facility] CPT-37634 Level 3 Est. Patient 10:48:15 CDT Mitch luis [facility] CPT-49633 Level 3 Est. Patient 23:20:57 CDT Tavo toure MD [facility] CPT-80396 Level 3 Est. Patient 16:26:13 CDT Mitch luis [facility] Procedures Code Procedure Name Date Entry Date Standard Desc ription CPT-JTINJ Asp/Joint Injection 18:47:02 CDT CPT-79579 Venipuncture Draw Fee 09:26:17 CDT CPT-97564 PT/INR - LAB USE ONLY 13:32:49 TOE SEWER CPT-29938 Venipuncture Draw Fee 13:32:49 TOE SEWER CPT-22712 PT/INR - LAB USE ONLY 10:34:49 TOE SEWER CPT-02607 Venipuncture Draw Fee 10:34:48 TOE SEWER CPT-93151 PT/INR - LAB USE ONLY 09:22:03 TOE SEWER CPT-93180 Venipuncture Draw Fee 09:22:02 TOE SEWER CPT-28977 Hemoccult IFOBT - LAB USE ONLY 10:27:22 CDT CPT-17099 Venipuncture Draw Fee 08:27:08 CDT CPT-25295 Liver Profile - LAB USE ONLY 08:27:07 CDT 2 CPT-11544 Microalbumin - LAB USE ONLY 08:27:07 CDT 20 25/05/09 CPT-89361 PT/INR - LAB USE ONLY 08:27:07 CDT CPT-47026 HGBA1C - LAB USE ONLY 08:27:07 CDT CPT-16292 CBC - LAB USE ONLY 08:27:07 CDT CPT-09099 Venipuncture Draw Fee 11:09:14 CDT CPT-24848 Venipuncture Draw Fee 08:32:21 TOE SEWER CPT-63487 Venipuncture Draw Fee 09:38:56 TOE SEWER CPT-91148 No Charge Offi Visit 21:36:07 CDT 1 CPT-96699 Venipuncture Draw Fee 10:13:28 TOE SEWER CPT-79314 Venipuncture Draw Fee 08:31:11 CDT CPT-58683 Aspir/Inject Med Joint 18:17:28 CDT CPT-39590 Venipuncture Draw Fee 10:13:30 CDT CPT-44729 Venipuncture Draw Fee 08:31:43 TOE SEWER CPT-JTINJ Joint Injection 18:34:50 CDT CPT-10587 Knee 3V 12:25:09 CDT CPT-96585 Venipuncture Draw Fee 12:15:57 CDT CPT-060 Medical Surveillance Exam 21:31:43 CDT 2011 CPT-82529 Venipuncture Draw Fee 08:32:05 TOE SEWER CPT-OV Office Visit 18:19:06 CDT
--- OUTSIDE RECORDS SUMMARY | 2020-01-18 13:23 | XMS REPORT | Clinical Summary ---
[...] of vessel, [place] or graft EDEMA 782.3 Active Mitch Urbina [...] 1 tablet by mouth daily AMLODIPINE BESYLATE 29995649636 Active Mitch Urbina DO Active MECLIZINE HCL 25 MG TAB 1 po tid 3 days, then 1/2 tab tid 3 days MECLIZINE HCL 40605025549 No Longer Active Corey SEGURA Active ALLOPURINOL 300 MG TABS Take 1 tablet by mouth daily 2 ALLOPURINOL 53866371228 No Longer Active Corey SEGURA Activ e CLONIDINE HCL 0.1 MG TABS 1 po bid 7 days, then 1/2 tab po b id 7 days CLONIDINE HCL 09566040327 No Longer Active Corey SEGURA Active COUMADIN 5 MG TABS 1 tab PO daily WARFARIN SODIUM 72037681351 Active Mitch Urbina DO Active COUMADIN 4 MG TABS 1 tablet daily WARFARIN SODI UM 54142509002 No Longer Active Corey SEGURA Active POLYTRIM 77618-8.1 UNIT/ML-% SOLN 1 drop in affected e ye every 3 hours while awake x 7 days POLYMYXIN B-TRIMETHOPRIM 99945593589 N o Longer Active Corey SEGURA Active LOSARTAN POTASSIUM-HCTZ 100-12.5 MG TABS 1 by mouth da [place] for high blood pressure LOSARTAN POTASSIUM-HCTZ 98080927881 Active Stephy Urbina DO Active LISINOPRIL-HYDROCHLOROTHIAZIDE 20-12.5 MG TABS 1 tab by mouth da rocky LISINOPRIL-HYDROCHLOROTHIAZIDE 73349016247 No Longer Active Mitch luis DO Active LISINOPRIL 20 MG TABS 1 tab po at HS LISINOPRIL 79374672936 No Longer Active Mitch Urbina DO Active COUMADIN 5 MG TABS 1 by mouth every other day WARFARIN SODIUM 38272027505 No Longer Active Mitch Urbina DO Active COUMADIN 6 MG TABS 1 by mouth every other day WARFARIN SODIUM 57792678801 No Longer Active Mitch Urbina DO Active COLCRYS 0.6 MG TABS 1 tab qid prn gout COLCHICINE 44119068337 Active Corey SEGURA Active SIMVASTATIN 40 MG TABS 1 tab daily at bedtime S IMVASTATIN 10732801118 Active Mitch Urbina DO Active SIMVASTATIN 20 MG TABS 1 tab daily at bedtime S IMVASTATIN 72447127886 No Longer Active Mitch Urbina DO Active LOVENOX 100 MG/ML SC SOLN One injection twice a day 09/15/15 ENOXAPARIN SODIUM 15291238433 No Longer Active Carmine Navarrete ctive JANUVIA 50 MG TABS Take one by mouth daily DIEGO GLIPTIN PHOSPHATE 28434859487 Active Mitch Urbina DO Active JANUVIA 100 MG TABS 1/2 by mouth every day DIEGO GLIPTIN PHOSPHATE 73681286369 No Longer Active Bijal Philipp RN Active METFORMIN HCL 500 MG TABS 2 by mouth twice daily METFORMIN HCL 65784436245 Active Mitch Urbina DO Active GLIMEPIRIDE 4 MG TABS 1 tab po bid GLIMEPIRIDE 974736 19173 Active Mitch Urbina DO Active COLCRYS 0.6 MG TABS 1 po q 6 hours prn gout pain 03/02 COLCHICINE 32469843779 No Longer Active Camila Reese Active LISINOPRIL 5 MG TABS 1 by mouth every day LISIN OPRIL 84874574773 No Longer Active Nguyenmolly Perez Active KLOR-CON 20 MEQ PACK Take one by mouth daily 8 POTASSIUM CHLORIDE 85227003036 No Longer Active Nguyen Perez Active FUROSEMIDE 40 MG TABS 1 by mouth daily FUROSEMI DE 83561681240 No Longer Active Nguyen Perez Active PROVIGIL 200 MG TABS 1/2 tab po q day MODAFINIL 64270 946202 Active Mitch Urbina DO Active PROVIGIL 100 MG TABS Take one by mouth daily MO DAFINIL 28654571138 No Longer Active Mitch Urbina DO Active BACTRIM DS 800-160 MG TAB 1 tab by mouth twice daily 2 TRIMETHOPRIM-SULFAMETHOXAZOLE 57346848156 No Longer Active Renan Hays MD Active FAMOTIDINE 20 MG TABS by mouth twice a day FAMOTI DINE 76241858703 Active Mitch Urbina DO Active ADULT ASPIRIN LOW STRENGTH 81 MG TBDP 1 by mouth every daily ASPIRIN 18625728343 Active Mitch Urbina DO Active METOPROLOL TARTRATE 50 MG TABS 1 by mouth twice daily METOPROLOL TARTRATE 35436882741 Active Mitch W Carlitos DO Active BACTRIM DS 800-160 MG TAB 1 tab by mouth twice daily 2 BACTRIM DS 800-160 MG TAB TRIMETHOPRIM-SULFAMETHOXAZOLE Inac tive PROVIGIL 100 MG TABS Take one by mouth daily 4 PROVIGIL 100 MG TABS 245603 MODAFINIL Inactive FUROSEMIDE 40 MG TABS 1 by mouth daily FU ROSEMIDE 40 MG TABS 792438 FUROSEMIDE Inactive KLOR-CON 20 MEQ PACK Take one by mouth daily 8 KLOR-CON 20 MEQ PACK 992379 POTASSIUM CHLORIDE Inactive LISINOPRIL 5 MG TABS 1 by mouth every day LISINOPRIL 5 MG TABS 875626 LISINOPRIL Inactive COLCRYS 0.6 MG TABS 1 po q 6 hours prn gout pain 03/02 COLCRYS 0.6 MG TABS COLCHICINE Inactive JANUVIA 100 MG TABS 1/2 by mouth every day JANUVI A 100 MG TABS SITAGLIPTIN PHOSPHATE Inactive SIMVASTATIN 20 MG TABS 1 tab daily at bedtime SIMVASTATIN 20 MG TABS 073507 SIMVASTATIN Inactive COUMADIN 6 MG TABS 1 by mouth every other day COUMADIN 6 MG TABS 730286 WARFARIN SODIUM Inactive COUMADIN 5 MG TABS 1 by mouth every other day COUMADIN 5 MG TABS 106639 WARFARIN SODIUM Inactive LISINOPRIL 20 MG TABS 1 tab po at HS KOKI NOPRIL 20 MG TABS 412585 LISINOPRIL Inactive LISINOPRIL-HYDROCHLOROTHIAZIDE 20-12.5 MG TABS 1 tab by mouth da rocky LISINOPRIL-HYDROCHLOROTHIAZIDE 20-12.5 MG TABS 170343 LISINOPRIL-HYDROCHLOROTHIAZIDE Inactive POLYTRIM 52019-1.1 UNIT/ML-% SOLN 1 drop in affected e ye every 3 hours while awake x 7 days POLYTRIM 25637-8.1 UNIT/ML-% SOLN 81716 7 POLYMYXIN B-TRIMETHOPRIM Inactive COUMADIN 4 MG TABS 1 tablet daily COUMADIN 4 MG TABS 167891 WARFARIN SODIUM Inactive CLONIDINE HCL 0.1 MG TABS 1 po bid 7 days, then 1/2 tab po b id 7 days CLONIDINE HCL 0.1 MG TABS 703764 CLONIDINE HCL I nactive ALLOPURINOL 300 MG TABS Take 1 tablet by mouth daily 2 ALLOPURINOL 300 MG TABS 651686 ALLOPURINOL Inactive MECLIZINE HCL 25 MG TAB 1 po tid 3 days, then 1/2 tab tid 3 days MECLIZINE HCL 25 MG TAB 123236 MECLIZINE HCL Inactive LOVENOX 100 MG/ML SC SOLN One injection twice a day 09/15/15 LOVENOX 100 MG/ML SC SOLN 514480 ENOXAPARIN SODIUM Inactive Vital Signs Date Name [...] 10.3 mg/dL 2.6-7.2 sodium, serum 136 mmol/L 045-611 3338/07/25 potassium, serum 4.6 mmol/L 3.5-5.2 chloride, serum [...] Panel - Chemistry sodium, serum 137 mmol/L 527-121 9733/11/14 potassium, serum 4.4 mmol/L 3.5-5.2 chloride, serum [...] 8.0 % 4.3-6.0 cholesterol, serum 130 mg/dL 320-848 7044/11/14 triglyceride, serum, fasting 288 mg/dL 30-200 HDL cholesterol, serum 33 mg/dL 32-96 LDL cholesterol, serum 39 mg/dL 0-130 Lab Report: Comp. Metabolic Panel, HGBA1 C, Lipid Panel, Prothrombin Time - Chemistry sodium, serum 136 mmol/L 014-025 0911/12/02 potassium, serum 4.4 mmol/L 3.5-5.2 chloride, serum [...] 7.6 % 4.3-6.0 cholesterol, serum 117 mg/dL 965-534 3068/12/02 triglyceride, serum, fasting 226 mg/dL 30-200 HDL [...] 1.0-3.5 Encounters Code Encounter Date Provider Facility CPT-19240 Level 3 Est. Patient 17:01:00 INSULATION MACHINE OPERATOR Mitch luis [facility] CPT-50633 Level 3 Est. Patient 13:53:19 INSULATION MACHINE OPERATOR Mitch luis [facility] CPT-53127 Level 3 Est. Patient 19:19:37 INSULATION MACHINE OPERATOR Mitch luis [facility] CPT-18433 Level 3 Est. Patient 13:25:53 INSULATION MACHINE OPERATOR Tavo toure MD [facility] CPT-91711 Level 3 Est. Patient 18:17:28 CDT Mitch luis [facility] CPT-17476 Level 3 Est. Patient 15:22:57 CDT Mitch luis [facility] CPT-30504 Level 3 Est. Patient 18:21:50 CDT Mitch luis [facility] CPT-60384 Level 3 Est. Patient 18:20:38 CDT Mitch luis [facility] CPT-65254 Level 3 Est. Patient 15:37:55 CDT Mitch Castellano ee [facility] CPT-93216 Level 2 Est. Patient 15:54:44 CDT Carmine benton MD [facility] CPT-71602 Level 3 Est. Patient 21:46:01 INSULATION MACHINE OPERATOR Mitch luis [facility] CPT-57920 Level 3 Est. Patient 22:15:50 CDT Mitch Castellano janelle [facility] CPT-85348 Level 3 Est. Patient 10:48:15 CDT Mitch Arnol luis [facility] CPT-91300 Level 3 Est. Patient 23:20:57 CDT Tavo toure MD [facility] CPT-97382 Level 3 Est. Patient 16:26:13 CDT Mitch Castellano janelle [facility] Procedures Code Procedure Name Date Entry Date Standard Desc ription CPT-08305 Venipuncture Draw Fee 10:13:28 INSULATION MACHINE OPERATOR CPT-68586 Venipuncture Draw Fee 08:31:11 CDT CPT-81196 Aspir/Inject Med Joint 18:17:28 CDT CPT-11108 Venipuncture Draw Fee 10:13:30 CDT CPT-93377 Venipuncture Draw Fee 08:31:43 INSULATION MACHINE OPERATOR CPT-JTINJ Joint Injection 18:34:50 CDT CPT-72730 Knee 3V 12:25:09 CDT CPT-12983 Venipuncture Draw Fee 12:15:57 CDT CPT-060 Medical Surveillance Exam 21:31:43 CDT 2011 CPT-99134 Venipuncture Draw Fee 08:32:05 INSULATION MACHINE OPERATOR CPT-OV Office Visit 18:19:06 CDT
--- OUTSIDE RECORDS SUMMARY | 2020-01-18 13:23 | XMS REPORT | Clinical Summary ---
Author Author Admin, Mitch Leon Organization [facility] Address Unknown Phone Unavailable Allergies, [...] of vessel, picayune or graft EDEMA 782.3 Active Mitch Urbina [...] 1 tablet by mouth daily AMLODIPINE BESYLATE 55656288073 Active Mitch Urbina DO Active MECLIZINE HCL 25 MG TAB 1 po tid 3 days, then 1/2 tab tid 3 days MECLIZINE HCL 44215092990 No Longer Active Corey SEGURA Active ALLOPURINOL 300 MG TABS Take 1 tablet by mouth daily 2 ALLOPURINOL 54828652445 No Longer Active Corey SEGURA Activ e CLONIDINE HCL 0.1 MG TABS 1 po bid 7 days, then 1/2 tab po b id 7 days CLONIDINE HCL 80891125173 No Longer Active Corey SEGURA Active COUMADIN 5 MG TABS 1 tab PO daily WARFARIN SODIUM 06756356698 Active Mitch Urbina DO Active COUMADIN 4 MG TABS 1 tablet daily WARFARIN SODI UM 88861927098 No Longer Active Corey SEGURA Active POLYTRIM 85822-8.1 UNIT/ML-% SOLN 1 drop in affected e ye every 3 hours while awake x 7 days POLYMYXIN B-TRIMETHOPRIM 39433593080 N o Longer Active Corey SEGURA Active LOSARTAN POTASSIUM-HCTZ 100-12.5 MG TABS 1 by mouth da rocky for high blood pressure LOSARTAN POTASSIUM-HCTZ 26115202128 Active Stephy Urbina DO Active LISINOPRIL-HYDROCHLOROTHIAZIDE 20-12.5 MG TABS 1 tab by mouth da rocky LISINOPRIL-HYDROCHLOROTHIAZIDE 29745205161 No Longer Active Mitch luis DO Active LISINOPRIL 20 MG TABS 1 tab po at HS LISINOPRIL 83295872624 No Longer Active Mitch Urbina DO Active COUMADIN 5 MG TABS 1 by mouth every other day WARFARIN SODIUM 26096963177 No Longer Active Mitch Urbina DO Active COUMADIN 6 MG TABS 1 by mouth every other day WARFARIN SODIUM 20107069757 No Longer Active Mitch Urbina DO Active COLCRYS 0.6 MG TABS 1 tab qid prn gout COLCHICINE 12868757222 Active Mitch Urbina DO Active SIMVASTATIN 40 MG TABS 1 tab daily at bedtime S IMVASTATIN 65482101966 Active Mitch Urbina DO Active SIMVASTATIN 20 MG TABS 1 tab daily at bedtime S IMVASTATIN 42354990060 No Longer Active Mitch Urbina DO Active LOVENOX 100 MG/ML SC SOLN One injection twice a day 09/15/15 ENOXAPARIN SODIUM 87380297803 No Longer Active Carmine Navarrete ctive JANUVIA 50 MG TABS Take one by mouth daily DIEGO GLIPTIN PHOSPHATE 08532336600 Active Mitch Urbina DO Active JANUVIA 100 MG TABS 1/2 by mouth every day DIEGO GLIPTIN PHOSPHATE 01765745648 No Longer Active Bijal Philipp RN Active METFORMIN HCL 500 MG TABS 2 by mouth twice daily METFORMIN HCL 27861626468 Active Mitch Urbina DO Active GLIMEPIRIDE 4 MG TABS 1 tab po bid GLIMEPIRIDE 516556 34279 Active Mitch Urbina DO Active COLCRYS 0.6 MG TABS 1 po q 6 hours prn gout pain 03/02 COLCHICINE 61340544176 No Longer Active Camila Reese Active LISINOPRIL 5 MG TABS 1 by mouth every day LISIN OPRIL 16118635781 No Longer Active Nguyen Perez Active KLOR-CON 20 MEQ PACK Take one by mouth daily 8 POTASSIUM CHLORIDE 68017653713 No Longer Active Nguyen Perez Active FUROSEMIDE 40 MG TABS 1 by mouth daily FUROSEMI DE 65081502138 No Longer Active Nguyen Perez Active PROVIGIL 200 MG TABS 1/2 tab po q day MODAFINIL 64554 221065 Active Mitch Urbina DO Active PROVIGIL 100 MG TABS Take one by mouth daily MO DAFINIL 87896843054 No Longer Active Mitch Urbina DO Active BACTRIM DS 800-160 MG TAB 1 tab by mouth twice daily 2 TRIMETHOPRIM-SULFAMETHOXAZOLE 01859630545 No Longer Active Renan Hays MD Active FAMOTIDINE 20 MG TABS by mouth twice a day FAMOTI DINE 17273542584 Active Mitch Urbina DO Active ADULT ASPIRIN LOW STRENGTH 81 MG TBDP 1 by mouth every daily ASPIRIN 78845662261 Active Mitch Urbina DO Active METOPROLOL TARTRATE 50 MG TABS 1 by mouth twice daily METOPROLOL TARTRATE 12156622862 Active Mitch W Carlitos DO Active BACTRIM DS 800-160 MG TAB 1 tab by mouth twice daily 2 BACTRIM DS 800-160 MG TAB TRIMETHOPRIM-SULFAMETHOXAZOLE Inac tive PROVIGIL 100 MG TABS Take one by mouth daily 4 PROVIGIL 100 MG TABS 506619 MODAFINIL Inactive FUROSEMIDE 40 MG TABS 1 by mouth daily FU ROSEMIDE 40 MG TABS 785144 FUROSEMIDE Inactive KLOR-CON 20 MEQ PACK Take one by mouth daily 8 KLOR-CON 20 MEQ PACK 044341 POTASSIUM CHLORIDE Inactive LISINOPRIL 5 MG TABS 1 by mouth every day LISINOPRIL 5 MG TABS 289054 LISINOPRIL Inactive COLCRYS 0.6 MG TABS 1 po q 6 hours prn gout pain 03/02 COLCRYS 0.6 MG TABS COLCHICINE Inactive JANUVIA 100 MG TABS 1/2 by mouth every day JANUVI A 100 MG TABS SITAGLIPTIN PHOSPHATE Inactive SIMVASTATIN 20 MG TABS 1 tab daily at bedtime SIMVASTATIN 20 MG TABS 522691 SIMVASTATIN Inactive COUMADIN 6 MG TABS 1 by mouth every other day COUMADIN 6 MG TABS 506547 WARFARIN SODIUM Inactive COUMADIN 5 MG TABS 1 by mouth every other day COUMADIN 5 MG TABS 013949 WARFARIN SODIUM Inactive LISINOPRIL 20 MG TABS 1 tab po at HS KOKI NOPRIL 20 MG TABS 731708 LISINOPRIL Inactive LISINOPRIL-HYDROCHLOROTHIAZIDE 20-12.5 MG TABS 1 tab by mouth da rocky LISINOPRIL-HYDROCHLOROTHIAZIDE 20-12.5 MG TABS 367697 LISINOPRIL-HYDROCHLOROTHIAZIDE Inactive POLYTRIM 94247-6.1 UNIT/ML-% SOLN 1 drop in affected e ye every 3 hours while awake x 7 days POLYTRIM 28479-9.1 UNIT/ML-% SOLN 58887 7 POLYMYXIN B-TRIMETHOPRIM Inactive COUMADIN 4 MG TABS 1 tablet daily COUMADIN 4 MG TABS 324976 WARFARIN SODIUM Inactive CLONIDINE HCL 0.1 MG TABS 1 po bid 7 days, then 1/2 tab po b id 7 days CLONIDINE HCL 0.1 MG TABS 362856 CLONIDINE HCL I nactive ALLOPURINOL 300 MG TABS Take 1 tablet by mouth daily 2 ALLOPURINOL 300 MG TABS 697941 ALLOPURINOL Inactive MECLIZINE HCL 25 MG TAB 1 po tid 3 days, then 1/2 tab tid 3 days MECLIZINE HCL 25 MG TAB 794470 MECLIZINE HCL Inactive LOVENOX 100 MG/ML SC SOLN One injection twice a day 09/15/15 LOVENOX 100 MG/ML SC SOLN 029051 ENOXAPARIN SODIUM Inactive Vital Signs Date Name [...] Acid - Chemistry sodium, serum 136 mmol/L 205-496 7173/07/25 potassium, serum 4.6 mmol/L 3.5-5.2 chloride, serum [...] 11 .6-14.8 platelet count 277 10^3/MM^3 10*3/mm3 576-293 3341/07/25 hematocrit, blood 40.1 % 41.0-53.0 leukocyte count, blood 6.6 10^3/MM^3 10*3/mm3 4.6-10.2 erythrocyte (RBC) count 5.02 10^6/MM^3 10*6/mm3 4.69-6.1 3 hemoglobin, blood 12.8 g/dL 13.5-17.5 Lab Report: CBC, Comp. Metabolic Panel, HGBA1C, MICROALBUMIN, Uric Acid - Lab microalbumin, urine 30 0-19 Lab Report: Comp. Metabolic Panel, HGBA1 C, Lipid Panel - Chemistry sodium, serum 137 mmol/L 925-632 1409/11/14 creatinine, serum 1.30 mg/dL 0.60-1.30 alanine aminotransferase (SGPT), serum 38 U/L 12-78 aspartate aminotransferase (SGOT), serum 34 U/L 15-37 calcium, serum 10.4 mg/dL 8.5-10.1 bilirubin, serum, total 0.90 mg/dL 0.00-1.00 hemoglobin A1C, blood, as % of total hemoglobin 8.0 % 4.3-6.0 cholesterol, serum 130 mg/dL 235-058 7391/11/14 triglyceride, serum, fasting 288 mg/dL 30-200 HDL cholesterol, serum 33 mg/dL 32-96 LDL cholesterol, serum 39 mg/dL 0-130 potassium, serum 4.4 mmol/L 3.5-5.2 chloride, serum 100 mmol/L 98-107 carbon dioxide, venous blood 33.0 mmol/L 21.0-32 .0 blood glucose 181 mg/dL 65-110 urea nitrogen, blood 28 mg/dL 7-18 Lab Report: Comp. Metabolic Panel, HGBA1 C, Lipid Panel, Prothrombin Time - Chemistry urea nitrogen, blood 29 mg/dL 7-18 sodium, serum 136 mmol/L 054-643 1330/12/02 potassium, serum 4.4 mmol/L 3.5-5.2 chloride, serum 101 mmol/L 98-107 carbon dioxide, venous blood 29.0 mmol/L 21.0-32 .0 blood glucose 149 mg/dL 65-110 creatinine, serum 1.20 mg/dL 0.60-1.30 alanine aminotransferase (SGPT), serum 46 U/L 12-78 aspartate aminotransferase (SGOT), serum 34 U/L 15-37 calcium, serum 10.3 mg/dL 8.5-10.1 bilirubin, serum, total 0.60 mg/dL 0.00-1.00 hemoglobin A1C, blood, as % of total hemoglobin 7.6 % 4.3-6.0 cholesterol, serum 117 mg/dL 116-891 1597/12/02 triglyceride, serum, fasting 226 mg/dL 30-200 HDL [...] prothrombin time (patient) 18.4 SECS s 11.1-13.4 Encounters Code Encounter Date Provider Facility CPT-46757 Level 3 Est. Patient 17:01:00 SKI PATROL OFFICER Mitch W L janelle [facility] CPT-80593 Level 3 Est. Patient 13:53:19 SKI PATROL OFFICER Mitch Ambrose L [facility] CPT-96101 Level 3 Est. Patient 19:19:37 SKI PATROL OFFICER Mitch Ambrose L [facility] CPT-47169 Level 3 Est. Patient 13:25:53 SKI PATROL OFFICER Tavo toure MD [facility] CPT-10393 Level 3 Est. Patient 18:17:28 CDT Mitch Ambrose L [facility] CPT-48136 Level 3 Est. Patient 15:22:57 CDT Mitch Ambrose L janelle [facility] CPT-67578 Level 3 Est. Patient 18:21:50 CDT Mitch W L janelle [facility] CPT-81804 Level 3 Est. Patient 18:20:38 CDT Mitch Ambrose L janelle [facility] CPT-61891 Level 3 Est. Patient 15:37:55 CDT Mitch W L ee [facility] CPT-81839 Level 2 Est. Patient 15:54:44 CDT Carmine benton MD [facility] [place]-[id number] Level 3 Est. Patient 21:46:01 SKI PATROL OFFICER Mitch luis [facility] CPT-30479 Level 3 Est. Patient 22:15:[address] [facility] CPT-32089 Level 3 Est. Patient 10:48:[address] [facility] CPT-43972 Level 3 Est. Patient 23:20:57 CDT Tavo toure MD [facility] CPT-71656 Level 3 Est. Patient 16:26:[address] [facility] Procedures Code Procedure Name Date Entry Date Standard Desc ription CPT-23487 Venipuncture Draw Fee 10:13:28 SKI PATROL OFFICER CPT-88159 Venipuncture Draw Fee 08:31:11 CDT CPT-96360 Aspir/Inject Med Joint 18:17:28 CDT CPT-59177 Venipuncture Draw Fee 10:13:30 CDT CPT-76571 Venipuncture Draw Fee 08:31:43 SKI PATROL OFFICER CPT-JTINJ Joint Injection 18:34:50 CDT CPT-19254 Knee 3V 12:25:09 CDT CPT-93711 Venipuncture Draw Fee 12:15:57 CDT CPT-060 Medical Surveillance Exam 21:31:43 CDT 2011 CPT-67006 Venipuncture Draw Fee 08:32:05 SKI PATROL OFFICER CPT-OV Office Visit 18:19:06 CDT
--- OUTSIDE RECORDS SUMMARY | 2020-01-18 13:24 | XMS REPORT | Clinical Summary ---
Author Author Admin, Mitch Leon Organization [facility] Address Unknown Phone Unavailable Allergies, Adverse Reactions, [...] ( 6mg total ) 2015 WARFARIN SODIUM 47984670535 Active Domi Rivera MA Acti ve INVOKANA 100 MG ORAL TABS 1 tablet orally daily CANAGLIFLOZIN 29783627136 Active Kathie Juan RPT,RMA Active MINOXIDIL 2.5 MG TABS 1 tablet daily for high blood pressure 10/23 MINOXIDIL 34371414884 Active Mitch Urbina DO Active AMLODIPINE BESYLATE 5 MG TABS 1 tablet by mouth daily AMLODIPINE BESYLATE 70298734894 Active Domi Rivera MA Active MECLIZINE HCL 25 MG TAB 1 po tid 3 days, then 1/2 tab tid 3 days MECLIZINE HCL 03524208603 No Longer Active Corey SEGURA Active ALLOPURINOL 300 MG TABS Take 1 tablet by mouth daily 2 ALLOPURINOL 29953199791 No Longer Active Corey SEGURA Activ e CLONIDINE HCL 0.1 MG TABS 1 po bid 7 days, then 1/2 tab po b id 7 days CLONIDINE HCL 09750425143 No Longer Active Corey SEGURA Active COUMADIN 5 MG TABS 1 tab PO daily WARFARIN SODIUM 05857769708 Active Domi Rivera MA Active COUMADIN 4 MG TABS 1 tablet daily WARFARIN SODI UM 98368747207 No Longer Active Corey ESGURA Active POLYTRIM 78211-2.1 UNIT/ML-% SOLN 1 drop in affected e ye every 3 hours while awake x 7 days POLYMYXIN B-TRIMETHOPRIM 89659704127 N o Longer Active Corey SEGURA Active LOSARTAN POTASSIUM-HCTZ 100-12.5 MG TABS 1 by mouth da rocky for high blood pressure LOSARTAN POTASSIUM-HCTZ 44952553587 Active Domi Rivera MA Active LISINOPRIL-HYDROCHLOROTHIAZIDE 20-12.5 MG TABS 1 tab by mouth da rocky LISINOPRIL-HYDROCHLOROTHIAZIDE 12293108883 No Longer Active Mitch luis DO Active LISINOPRIL 20 MG TABS 1 tab po at HS LISINOPRIL 15449178536 No Longer Active Mitch Urbina DO Active COUMADIN 5 MG TABS 1 by mouth every other day WARFARIN SODIUM 38831086184 No Longer Active Mitch Urbina DO Active COUMADIN 6 MG TABS 1 by mouth every other day WARFARIN SODIUM 47889718315 No Longer Active Mitch Urbina DO Active COLCRYS 0.6 MG TABS 1 tab qid prn gout COLCHICINE 86239440806 Active Corey SEGURA Active SIMVASTATIN 40 MG TABS 1 tab daily at bedtime S IMVASTATIN 46524640415 Active Domi Rivera MA Active SIMVASTATIN 20 MG TABS 1 tab daily at bedtime S IMVASTATIN 99944363682 No Longer Active Mitch Urbina DO Active LOVENOX 100 MG/ML SC SOLN One injection twice a day 09/15/15 ENOXAPARIN SODIUM 82867263383 No Longer Active Carmine Navarrete ctive JANUVIA 50 MG TABS Take one by mouth daily DIEGO GLIPTIN PHOSPHATE 08155112961 Active Domi Rivera MA Active JANUVIA 100 MG TABS 1/2 by mouth every day DEIGO GLIPTIN PHOSPHATE 72052537401 No Longer Active Bijal Segal RN Active METFORMIN HCL 500 MG TABS 2 by mouth twice daily METFORMIN HCL 76454071367 Active Kathie Juan RPT,RMA Active GLIMEPIRIDE 4 MG TABS 1 tab po bid GLIMEPIRIDE 725007 24970 Active Kathie Juan RPT,RMA Active COLCRYS 0.6 MG TABS 1 po q 6 hours prn gout pain 03/02 COLCHICINE 78017421039 No Longer Active Camila eRese Active LISINOPRIL 5 MG TABS 1 by mouth every day LISIN OPRIL 33985928430 No Longer Active Nguyen Perez Active KLOR-CON 20 MEQ PACK Take one by mouth daily 8 POTASSIUM CHLORIDE 54695595165 No Longer Active Nguyen Perez Active FUROSEMIDE 40 MG TABS 1 by mouth daily FUROSEMI DE 55404899790 No Longer Active Nguyenmolly Perez Active PROVIGIL 200 MG TABS 1/2 tab po q day MODAFINIL 15693 724453 Active Domi Rivera MA Active PROVIGIL 100 MG TABS Take one by mouth daily MO DAFINIL 17725695752 No Longer Active Mitch Urbina DO Active BACTRIM DS 800-160 MG TAB 1 tab by mouth twice daily 2 TRIMETHOPRIM-SULFAMETHOXAZOLE 71376773637 No Longer Active Renan Hays MD Active FAMOTIDINE 20 MG TABS by mouth twice a day FAMOTI DINE 92104113335 Active Mitch Urbina DO Active ADULT ASPIRIN LOW STRENGTH 81 MG TBDP 1 by mouth every daily ASPIRIN 99321174692 Active Mitch Urbina DO Active METOPROLOL TARTRATE 50 MG TABS 1 by mouth twice daily METOPROLOL TARTRATE 62731698792 Active Domi Rivera MA Active BACTRIM DS 800-160 MG TAB 1 tab by mouth twice daily 2 BACTRIM DS 800-160 MG TAB 418283 TRIMETHOPRIM-SULFAMETHOXAZOLE Inac tive PROVIGIL 100 MG TABS Take one by mouth daily 4 PROVIGIL 100 MG TABS 729623 MODAFINIL Inactive FUROSEMIDE 40 MG TABS 1 by mouth daily FU ROSEMIDE 40 MG TABS 549805 FUROSEMIDE Inactive KLOR-CON 20 MEQ PACK Take one by mouth daily 8 KLOR-CON 20 MEQ PACK 851702 POTASSIUM CHLORIDE Inactive LISINOPRIL 5 MG TABS 1 by mouth every day LISINOPRIL 5 MG TABS 859749 LISINOPRIL Inactive COLCRYS 0.6 MG TABS 1 po q 6 hours prn gout pain 03/02 COLCRYS 0.6 MG TABS 973847 COLCHICINE Inactive JANUVIA 100 MG TABS 1/2 by mouth every day JANUVI A 100 MG TABS SITAGLIPTIN PHOSPHATE Inactive SIMVASTATIN 20 MG TABS 1 tab daily at bedtime SIMVASTATIN 20 MG TABS 479923 SIMVASTATIN Inactive COUMADIN 6 MG TABS 1 by mouth every other day COUMADIN 6 MG TABS 802295 WARFARIN SODIUM Inactive COUMADIN 5 MG TABS 1 by mouth every other day COUMADIN 5 MG TABS 655897 WARFARIN SODIUM Inactive LISINOPRIL 20 MG TABS 1 tab po at HS KOKI NOPRIL 20 MG TABS 449396 LISINOPRIL Inactive LISINOPRIL-HYDROCHLOROTHIAZIDE 20-12.5 MG TABS 1 tab by mouth da rocky LISINOPRIL-HYDROCHLOROTHIAZIDE 20-12.5 MG TABS 023284 LISINOPRIL-HYDROCHLOROTHIAZIDE Inactive POLYTRIM 91789-6.1 UNIT/ML-% SOLN 1 drop in affected e ye every 3 hours while awake x 7 days POLYTRIM 67864-5.1 UNIT/ML-% SOLN 77853 7 POLYMYXIN B-TRIMETHOPRIM Inactive COUMADIN 4 MG TABS 1 tablet daily COUMADIN 4 MG TABS 810219 WARFARIN SODIUM Inactive CLONIDINE HCL 0.1 MG TABS 1 po bid 7 days, then 1/2 tab po b id 7 days CLONIDINE HCL 0.1 MG TABS 054839 CLONIDINE HCL I nactive ALLOPURINOL 300 MG TABS Take 1 tablet by mouth daily 2 ALLOPURINOL 300 MG TABS 493618 ALLOPURINOL Inactive MECLIZINE HCL 25 MG TAB 1 po tid 3 days, then 1/2 tab tid 3 days MECLIZINE HCL 25 MG TAB 920685 MECLIZINE HCL Inactive LOVENOX 100 MG/ML SC SOLN One injection twice a day 09/15/15 LOVENOX 100 MG/ML SC SOLN 671111 ENOXAPARIN SODIUM Inactive Vital Signs Date Name [...] Description Chart Maintenance: [facility] - Chemistry occult blood, stool (E&M) Positive [...] Ag - Chemistry sodium, serum 141 mmol/L 862-681 2337/07/06 potassium, serum 4.4 mmol/L 3.5-5.2 chloride, serum [...] - Chem istry sodium, serum 136 mmol/L 381-394 1898/01/14 carbon dioxide, venous blood 25.4 mmol/L 21.0-32 [...] 7.0 % 4.3-6.0 cholesterol, serum 120 mg/dL 246-791 0790/07/06 triglyceride, serum, fasting 186 mg/dL 30-200 HDL [...] 1.0-3.5 Encounters Code Encounter Date Provider Facility CPT-13579 Level 3 Est. Patient 09:34:30 REHABILITATION SPECIALIST Mitch luis [facility] CPT-61200 Level 3 Est. Patient 09:37:[address] [facility] CPT-72774 Level 3 Est. Patient 17:01:00 REHABILITATION SPECIALIST Mitch luis [facility] CPT-08595 Level 3 Est. Patient 13:53:19 REHABILITATION SPECIALIST Mitch luis [facility] CPT-72333 Level 3 Est. Patient 19:19:37 REHABILITATION SPECIALIST Mitch luis [facility] CPT-03999 Level 3 Est. Patient 13:25:53 REHABILITATION SPECIALIST Tavo toure MD [facility] CPT-43315 Level 3 Est. Patient 18:17:28 CDT Mitch luis [facility] CPT-78698 Level 3 Est. Patient 15:22:[address] [facility] CPT-22338 Level 3 Est. Patient 18:21:[address] [facility] CPT-47923 Level 3 Est. Patient 18:20:[address] [facility] CPT-18659 Level 3 Est. Patient 15:37:55 CDT Mitch luis [facility] CPT-56511 Level 2 Est. Patient 15:54:44 CDT Carmine benton MD [facility] CPT-55128 Level 3 Est. Patient 21:46:01 REHABILITATION SPECIALIST Mitch luis [facility] CPT-80974 Level 3 Est. Patient 22:15:50 CDT Mitch luis [facility] CPT-37131 Level 3 Est. Patient 10:48:15 CDT Mitch luis [facility] CPT-38544 Level 3 Est. Patient 23:20:57 CDT Tavo toure MD [facility] CPT-31329 Level 3 Est. Patient 16:26:13 CDT Mitch luis [facility] Procedures Code Procedure Name Date Entry Date Standard Desc ription CPT-21079 Venipuncture Draw Fee 08:32:21 REHABILITATION SPECIALIST CPT-90174 Venipuncture Draw Fee 09:38:56 REHABILITATION SPECIALIST CPT-41092 No Charge Offi Visit 21:36:07 CDT 1 CPT-29826 Venipuncture Draw Fee 10:13:28 REHABILITATION SPECIALIST CPT-64670 Venipuncture Draw Fee 08:31:11 CDT CPT-04238 Aspir/Inject Med Joint 18:17:28 CDT CPT-08328 Venipuncture Draw Fee 10:13:30 CDT CPT-18114 Venipuncture Draw Fee 08:31:43 REHABILITATION SPECIALIST CPT-JTINJ Joint Injection 18:34:50 CDT CPT-21003 Knee 3V 12:25:09 CDT CPT-03039 Venipuncture Draw Fee 12:15:57 CDT CPT-060 Medical Surveillance Exam 21:31:43 CDT 2011 CPT-06249 Venipuncture Draw Fee 08:32:05 REHABILITATION SPECIALIST CPT-OV Office Visit 18:19:06 CDT
--- OUTSIDE RECORDS SUMMARY | 2020-01-18 13:24 | XMS REPORT | Clinical Summary ---
Author Author Admin, Mitch Leon Organization [facility] [employer] Address Unknown Phone Unavailable Allergies, Adverse Reactions, [...] Coronary atherosclerosis of unspecified type of vessel, [place] or graft EDEMA 782.3 Resolved Mitch Urbina [...] tab to equal 7mg daily WARFARIN SODIUM 30259435909 Active Mitch Urbina DO Active COLCRYS 0.6 MG TABS 1 tab qid prn gout COLCHICINE 36277572743 Active Kathie Juan RPT,RMA Active INVOKANA 100 MG ORAL TABS 1 tablet orally daily CANAGLIFLOZIN 11385953982 Active Mitch Urbina DO Active MINOXIDIL 2.5 MG TABS 1 tablet daily for high blood pressure 10/23 MINOXIDIL 48420274848 Active Domi Rivera MA Active AMLODIPINE BESYLATE 5 MG TABS 1 tablet by mouth daily AMLODIPINE BESYLATE 74350652892 Active Mitch Urbina DO Active MECLIZINE HCL 25 MG TAB 1 po tid 3 days, then 1/2 tab tid 3 days MECLIZINE HCL 46640998144 No Longer Active Corey SEGURA Active ALLOPURINOL 300 MG TABS Take 1 tablet by mouth daily 2 ALLOPURINOL 08354586337 No Longer Active Corey SEGURA Activ e CLONIDINE HCL 0.1 MG TABS 1 po bid 7 days, then 1/2 tab po b id 7 days CLONIDINE HCL 66683207748 No Longer Active Corey SEGURA Active COUMADIN 5 MG TABS 1 tab PO daily WARFARIN SODIUM 43478187499 Active Mitch Urbina DO Active COUMADIN 4 MG TABS 1 tablet daily WARFARIN SODI UM 00402921525 No Longer Active Corey SEGURA Active POLYTRIM 45700-5.1 UNIT/ML-% SOLN 1 drop in affected e ye every 3 hours while awake x 7 days POLYMYXIN B-TRIMETHOPRIM 88465554218 N o Longer Active Corey SEGURA Active LOSARTAN POTASSIUM-HCTZ 100-12.5 MG TABS 1 by mouth da [place] for high blood pressure LOSARTAN POTASSIUM-HCTZ 85734584694 Active Stephy Urbina DO Active LISINOPRIL-HYDROCHLOROTHIAZIDE 20-12.5 MG TABS 1 tab by mouth da rocky LISINOPRIL-HYDROCHLOROTHIAZIDE 90458883613 No Longer Active Mitch luis DO Active LISINOPRIL 20 MG TABS 1 tab po at HS LISINOPRIL 47815661622 No Longer Active Mitch Urbina DO Active COUMADIN 5 MG TABS 1 by mouth every other day WARFARIN SODIUM 83583518420 No Longer Active Mitch Urbina DO Active COUMADIN 6 MG TABS 1 by mouth every other day WARFARIN SODIUM 93361489579 No Longer Active Mitch W [place] DO Active SIMVASTATIN 40 MG TABS 1 tab daily at bedtime S IMVASTATIN 43482663380 Active Mitch Urbina DO Active SIMVASTATIN 20 MG TABS 1 tab daily at bedtime S IMVASTATIN 96273645652 No Longer Active Mitch Urbina DO Active LOVENOX 100 MG/ML SC SOLN One injection twice a day 09/15/15 ENOXAPARIN SODIUM 63521016210 No Longer Active Carmine Navarrete ctive JANUVIA 50 MG TABS Take one by mouth daily DIEGO GLIPTIN PHOSPHATE 11946198633 Active Mitch Urbina DO Active JANUVIA 100 MG TABS 1/2 by mouth every day DIEGO GLIPTIN PHOSPHATE 88780894995 No Longer Active Bijal Segal RN Active METFORMIN HCL 500 MG TABS 2 by mouth twice daily METFORMIN HCL 25716646434 Active Mitch Urbina DO Active GLIMEPIRIDE 4 MG TABS 1 tab po bid GLIMEPIRIDE 554980 10738 Active Mitch Urbina DO Active COLCRYS 0.6 MG TABS 1 po q 6 hours prn gout pain 03/02 COLCHICINE 14766154521 No Longer Active Camila Reese Active LISINOPRIL 5 MG TABS 1 by mouth every day LISIN OPRIL 38376416077 No Longer Active Nguyen Perez Active KLOR-CON 20 MEQ PACK Take one by mouth daily 8 POTASSIUM CHLORIDE 22854498349 No Longer Active Nguyen Perez Active FUROSEMIDE 40 MG TABS 1 by mouth daily FUROSEMI DE 11386518462 No Longer Active Nguyenmolly Perez Active PROVIGIL 200 MG TABS 1/2 tab po q day MODAFINIL 99049 393734 Active Mitch Urbina DO Active PROVIGIL 100 MG TABS Take one by mouth daily MO DAFINIL 67046088090 No Longer Active Mitch Urbina DO Active BACTRIM DS 800-160 MG TAB 1 tab by mouth twice daily 2 TRIMETHOPRIM-SULFAMETHOXAZOLE 49440685354 No Longer Active Renan Hays MD Active FAMOTIDINE 20 MG TABS by mouth twice a day FAMOTI DINE 82872986175 Active Mitch Urbina DO Active ADULT ASPIRIN LOW STRENGTH 81 MG TBDP 1 by mouth every daily ASPIRIN 72067346087 Active Mitch Urbina DO Active METOPROLOL TARTRATE 50 MG TABS 1 by mouth twice daily METOPROLOL TARTRATE 72401773555 Active Mitch Urbina DO Active BACTRIM DS 800-160 MG TAB 1 tab by mouth twice daily 2 BACTRIM DS 800-160 MG TAB 045366 TRIMETHOPRIM-SULFAMETHOXAZOLE Inac tive PROVIGIL 100 MG TABS Take one by mouth daily 4 PROVIGIL 100 MG TABS 866111 MODAFINIL Inactive FUROSEMIDE 40 MG TABS 1 by mouth daily FU ROSEMIDE 40 MG TABS 939690 FUROSEMIDE Inactive KLOR-CON 20 MEQ PACK Take one by mouth daily 8 KLOR-CON 20 MEQ PACK 507145 POTASSIUM CHLORIDE Inactive LISINOPRIL 5 MG TABS 1 by mouth every day LISINOPRIL 5 MG TABS 739862 LISINOPRIL Inactive COLCRYS 0.6 MG TABS 1 po q 6 hours prn gout pain 03/02 COLCRYS 0.6 MG TABS 638777 COLCHICINE Inactive JANUVIA 100 MG TABS 1/2 by mouth every day JANUVI A 100 MG TABS SITAGLIPTIN PHOSPHATE Inactive SIMVASTATIN 20 MG TABS 1 tab daily at bedtime SIMVASTATIN 20 MG TABS 355082 SIMVASTATIN Inactive COUMADIN 6 MG TABS 1 by mouth every other day COUMADIN 6 MG TABS 719231 WARFARIN SODIUM Inactive COUMADIN 5 MG TABS 1 by mouth every other day COUMADIN 5 MG TABS 534224 WARFARIN SODIUM Inactive LISINOPRIL 20 MG TABS 1 tab po at HS [place]I NOPRIL 20 MG TABS 641562 LISINOPRIL Inactive LISINOPRIL-HYDROCHLOROTHIAZIDE 20-12.5 MG TABS 1 tab by mouth da rocky LISINOPRIL-HYDROCHLOROTHIAZIDE 20-12.5 MG TABS 840236 LISINOPRIL-HYDROCHLOROTHIAZIDE Inactive POLYTRIM 06111-5.1 UNIT/ML-% SOLN 1 drop in affected e ye every 3 hours while awake x 7 days POLYTRIM 06748-6.1 UNIT/ML-% SOLN 59580 7 POLYMYXIN B-TRIMETHOPRIM Inactive COUMADIN 4 MG TABS 1 tablet daily COUMADIN 4 MG TABS 547991 WARFARIN SODIUM Inactive CLONIDINE HCL 0.1 MG TABS 1 po bid 7 days, then 1/2 tab po b id 7 days CLONIDINE HCL 0.1 MG TABS 773795 CLONIDINE HCL I nactive ALLOPURINOL 300 MG TABS Take 1 tablet by mouth daily 2 ALLOPURINOL 300 MG TABS 963333 ALLOPURINOL Inactive MECLIZINE HCL 25 MG TAB 1 po tid 3 days, then 1/2 tab tid 3 days MECLIZINE HCL 25 MG TAB 248768 MECLIZINE HCL Inactive LOVENOX 100 MG/ML SC SOLN One injection twice a day 09/15/15 LOVENOX 100 MG/ML SC SOLN 723845 ENOXAPARIN SODIUM Inactive Vital Signs Date Name [...] - Chem istry sodium, serum 136 mmol/L 176-220 4288/01/14 carbon dioxide, venous blood 25.4 mmol/L 21.0-32 [...] 6.3 % 4.3-6.0 cholesterol, serum 136 mg/dL 374-488 1961/08/09 triglyceride, serum, fasting 187 mg/dL 30-200 aspartate aminotransferase (SGOT), serum 24 U/L 15-37 alanine aminotransferase (SGPT), serum 29 U/L 12-78 bilirubin, serum, total 0.60 mg/dL 0.00-1.00 HDL cholesterol, serum 39 mg/dL 32-96 LDL [...] - Coagulati on international normalized ratio (INR) 2.0 1.0-3.5 prothrombin time (patient) 16.9 SECS s 11.1-13.4 prothrombin time (patient) 19.9 SECS s 11.1-13.4 international normalized ratio (INR) 2.4 1.0-3.5 prothrombin time (patient) 15.4 SECS s 11.1-13.4 international normalized ratio (INR) 1.5 1.0-3.5 international normalized ratio (INR) 1.8 1.0-3.5 prothrombin time (patient) 15.8 SECS s 11.1-13.4 prothrombin time (patient) 17.1 SECS s 11.1-13.4 international normalized ratio (INR) 2.0 1.0-3.5 prothrombin time (patient) 18.9 SECS s 11.1-13.4 international normalized ratio (INR) 2.4 1.0-3.5 prothrombin time (patient) 14.5 SECS s 11.1-13.4 international normalized ratio (INR) 1.5 1.0-3.5 prothrombin time (patient) 16.2 SECS s 11.1-13.4 international normalized ratio (INR) 1.8 1.0-3.5 Encounters Code Encounter Date Provider Facility CPT-09504 Level 3 Est. Patient 14:21:06 CDT Mitch Ambrose L janelle [facility] CPT-34608 Level 3 Est. Patient 14:52:06 CDT Joe kamara APRN [facility]-73400 Level 3 Est. Patient 09:34:30 PRINCIPAL SOFTWARE ENGINEER Mitch Ambrose L janelle [facility] CPT-43323 Level 3 Est. Patient 09:37:15 CDT Mitch Ambrose L ee [facility]-26254 Level 3 Est. Patient 17:01:00 PRINCIPAL SOFTWARE ENGINEER Mitch Ambrose L janelle [facility] CPT-82836 Level 3 Est. Patient 13:53:19 PRINCIPAL SOFTWARE ENGINEER Mitch W L janelle [facility] CPT-59992 Level 3 Est. Patient 19:19:37 PRINCIPAL SOFTWARE ENGINEER Mitch W L janelle [facility] CPT-05826 Level 3 Est. Patient 13:25:53 PRINCIPAL SOFTWARE ENGINEER Tavo toure MD [facility] CPT-88715 Level 3 Est. Patient 18:17:28 CDT Mitch W L janelle [facility] CPT-71375 Level 3 Est. Patient 15:22:57 CDT Mitch W L janelle [facility] CPT-20597 Level 3 Est. Patient 18:21:50 CDT Mitch W L janelle [facility] CPT-12337 Level 3 Est. Patient 18:20:38 CDT Mitch W L ee [facility] CPT-97929 Level 3 Est. Patient 15:37:55 CDT Mitch W L janelle [facility] CPT-88739 Level 2 Est. Patient 15:54:44 CDT Carmine benton MD [facility] CPT-82214 Level 3 Est. Patient 21:46:01 PRINCIPAL SOFTWARE ENGINEER Mitch luis [facility] CPT-74086 Level 3 Est. Patient 22:15:50 CDT Mitch Arnol luis [facility] CPT-19445 Level 3 Est. Patient 10:48:15 CDT Mitch luis [facility] CPT-37087 Level 3 Est. Patient 23:20:57 CDT Tavo toure MD [facility] CPT-48391 Level 3 Est. Patient 16:26:13 CDT Mitch luis [facility] Procedures Code Procedure Name Date Entry Date Standard Desc ription CPT-52440 Hemoccult IFOBT - LAB USE ONLY 10:27:22 CDT CPT-99697 Venipuncture Draw Fee 08:27:08 CDT CPT-49607 Liver Profile - LAB USE ONLY 08:27:07 CDT 2 CPT-92656 Microalbumin - LAB USE ONLY 08:27:07 CDT 20 25/05/09 CPT-33176 PT/INR - LAB USE ONLY 08:27:07 CDT CPT-51981 HGBA1C - LAB USE ONLY 08:27:07 CDT CPT-79144 CBC - LAB USE ONLY 08:27:07 CDT CPT-76589 Venipuncture Draw Fee 11:09:14 CDT CPT-42294 Venipuncture Draw Fee 08:32:21 PRINCIPAL SOFTWARE ENGINEER CPT-29126 Venipuncture Draw Fee 09:38:56 PRINCIPAL SOFTWARE ENGINEER CPT-40711 No Charge Offi Visit 21:36:07 CDT 1 CPT-32955 Venipuncture Draw Fee 10:13:28 PRINCIPAL SOFTWARE ENGINEER CPT-33107 Venipuncture Draw Fee 08:31:11 CDT CPT-51574 Aspir/Inject Med Joint 18:17:28 CDT CPT-95659 Venipuncture Draw Fee 10:13:30 CDT CPT-56429 Venipuncture Draw Fee 08:31:43 PRINCIPAL SOFTWARE ENGINEER CPT-JTINJ Joint Injection 18:34:50 CDT CPT-16839 Knee 3V 12:25:09 CDT CPT-75228 Venipuncture Draw Fee 12:15:57 CDT CPT-060 Medical Surveillance Exam 21:31:43 CDT 2011 CPT-86619 Venipuncture Draw Fee 08:32:05 PRINCIPAL SOFTWARE ENGINEER CPT-OV Office Visit 18:19:06 CDT
--- OUTSIDE RECORDS SUMMARY | 2020-01-18 13:24 | XMS REPORT | Clinical Summary ---
[...] atherosclerosis of unspecified type of vessel, [place] or graft EDEMA 782.3 [...] ORAL TABLET 1 po BID GLIMEPIRID E 51223525441 Active Ana Wallace Active KEFLEX 500 MG ORAL CAPSULE 1 po qid CEPHALEXI N 78583202265 No Longer Active Mitch Urbina DO Active LOSARTAN POTASSIUM 100 MG ORAL TABLET 1 pill by mouth daily, for blood pressure LOSARTAN POTASSIUM 31425073271 Active Ana Wallace Active AMLODIPINE BESYLATE 5 MG ORAL TABLET 1 tablet by mouth daily 201 01/20/04 AMLODIPINE BESYLATE 63458888312 No Longer Active Devonjustincarlitos fulton ANNEI Active MITIGARE 0.6 MG ORAL CAPSULE 2 capsules at onset of go ut pain, then take one capsule at 1 hour if symptoms persist. COLCHICINE 59 659380969 Active Mitch Urbina DO Active COUMADIN 1 MG ORAL TABLET 2 tabs orally daily with the 5mg tab to equal 7mg daily WARFARIN SODIUM 15655223900 Active Ana Wallace Active COLCRYS 0.6 MG ORAL TABLET 1 tab qid prn gout C OLCHICINE 25754897363 Active Norma Cazares Active INVOKANA 100 MG ORAL TABLET 1 tablet orally daily CANAGLIFLOZIN 14510819589 Active Mitch Urbina DO Active MINOXIDIL 2.5 MG ORAL TABLET 1 tablet daily for high blood press ure MINOXIDIL 27799883961 Active Mitch Urbina DO Active MECLIZINE HCL 25 MG ORAL TABLET 1 po tid 3 days, then 1/2 ta b tid 3 days MECLIZINE HCL 97859090663 No Longer Active Corey SEGURA Active ALLOPURINOL 300 MG ORAL TABLET Take 1 tablet by mouth daily 2012 ALLOPURINOL 68254512850 No Longer Active Corey SEGURA Active CLONIDINE HCL 0.1 MG ORAL TABLET 1 po bid 7 days, then 1/2 t ab po bid 7 days CLONIDINE HCL 53953948184 No Longer Active Corey SEGURA Active COUMADIN 5 MG ORAL TABLET 1 tab PO daily WARFAR IN SODIUM 42559219699 Active Mitch Urbina DO Active COUMADIN 4 MG ORAL TABLET 1 tablet daily WARFAR IN SODIUM 95235214044 No Longer Active Corey SEGURA Active POLYTRIM 51968-4.1 UNIT/ML-% OPHTHALMIC SOLUTION 1 rui p in affected eye every 3 hours while awake x 7 days POLYMYXIN B-TRIMETHOP RIM 45180142311 No Longer Active Corey SEGURA Active LOSARTAN POTASSIUM-HCTZ 100-12.5 MG ORAL TABLET 1 by m outh daily for high blood pressure LOSARTAN POTASSIUM-HCTZ 70934357698 No Longer A ctive Mitch Urbina DO Active LISINOPRIL-HYDROCHLOROTHIAZIDE 20-12.5 MG ORAL TABLET 1 tab by m outh daily LISINOPRIL-HYDROCHLOROTHIAZIDE 04143723647 No Longer Active Mitch Urbina DO Active LISINOPRIL 20 MG ORAL TABLET 1 tab po at HS LIS INOPRIL 44924185756 No Longer Active Mitch Urbina DO Active COUMADIN 5 MG ORAL TABLET 1 by mouth every other day 2 WARFARIN SODIUM 79375140835 No Longer Active Mitch Urbina DO Active COUMADIN 6 MG ORAL TABLET 1 by mouth every other day 2 WARFARIN SODIUM 17787956178 No Longer Active Mitch Urbina DO Active SIMVASTATIN 40 MG ORAL TABLET 1 tab daily at bedtime SIMVASTATIN 63041261763 Active Mitch Urbina DO Active SIMVASTATIN 20 MG ORAL TABLET 1 tab daily at bedtime 2 SIMVASTATIN 80266406894 No Longer Active Mitch Urbina DO Active LOVENOX 100 MG/ML SUBCUTANEOUS SOLUTION One injection twice a da y ENOXAPARIN SODIUM 45094870869 No Longer Active Carmine Yusuf MD Active JANUVIA 50 MG ORAL TABLET Take one by mouth daily SITAGLIPTIN PHOSPHATE 41179186040 Active Mitch Urbina DO Active JANUVIA 100 MG ORAL TABLET 1/2 by mouth every day 2011 SITAGLIPTIN PHOSPHATE 31278948991 No Longer Active Bijal Segal RN Acti ve METFORMIN HCL 500 MG ORAL TABLET 2 by mouth twice daily METFORMIN HCL 52974756558 Active Mitch Urbina DO Active COLCRYS 0.6 MG ORAL TABLET 1 po q 6 hours prn gout pain COLCHICINE 51005219119 No Longer Active Camila Reese Active LISINOPRIL 5 MG ORAL TABLET 1 by mouth every day 11/17 LISINOPRIL 07171537463 No Longer Active Nguyen Coekman Active KLOR-CON 20 MEQ ORAL PACKET Take one by mouth daily 09/10/08 POTASSIUM CHLORIDE 08657360330 No Longer Active Nguyen Coekman Active FUROSEMIDE 40 MG ORAL TABLET 1 by mouth daily F UROSEMIDE 71786716491 No Longer Active Nguyen Coekman Active PROVIGIL 200 MG ORAL TABLET 1/2 tab po q day MODA FINIL 49414214726 Active Mitch Urbina DO Active PROVIGIL 100 MG ORAL TABLET Take one by mouth daily 08/20/04 MODAFINIL 01752294207 No Longer Active Mitch Urbina DO Active BACTRIM DS 800-160 MG ORAL TABLET 1 tab by mouth twice daily 201 10/19/09 TRIMETHOPRIM-SULFAMETHOXAZOLE 76774615558 No Longer Active Elian Hays MD Active FAMOTIDINE 20 MG ORAL TABLET by mouth twice a day FAMOTIDINE 69529155956 Active Mitch Urbina DO Active ADULT ASPIRIN LOW STRENGTH 81 MG ORAL TABLET DISINTEGR ATING 1 by mouth every daily ASPIRIN 19219354654 Active Mitch Urbina DO Ac tive METOPROLOL TARTRATE 50 MG ORAL TABLET 1 by mouth twice daily METOPROLOL TARTRATE 50681028654 Active Mitch Urbina DO Active BACTRIM DS 800-160 MG ORAL TABLET 1 tab by mouth twice daily 201 10/19/09 BACTRIM DS 800-160 MG ORAL TABLET 355403 TRIMETHOPRIM-SULFAMETHOXAZOLE Inactive PROVIGIL 100 MG ORAL TABLET Take one by mouth daily 08/20/04 PROVIGIL 100 MG ORAL TABLET 986653 MODAFINIL Inactive FUROSEMIDE 40 MG ORAL TABLET 1 by mouth daily FUROSEMIDE 40 MG ORAL TABLET 397843 FUROSEMIDE Inactive KLOR-CON 20 MEQ ORAL PACKET Take one by mouth daily 09/10/08 KLOR- CON 20 MEQ ORAL PACKET 2447305 POTASSIUM CHLORIDE Inactive LISINOPRIL 5 MG ORAL TABLET 1 by mouth every day 11/17 LISINOPRIL 5 MG ORAL TABLET 919765 LISINOPRIL Inactive COLCRYS 0.6 MG ORAL TABLET 1 po q 6 hours prn gout pain COLCRYS 0.6 MG ORAL TABLET 935257 COLCHICINE Inactive JANUVIA 100 MG ORAL TABLET 1/2 by mouth every day 2011 JANUVIA 100 MG ORAL TABLET SITAGLIPTIN PHOSPHATE Inactive SIMVASTATIN 20 MG ORAL TABLET 1 tab daily at bedtime 2 SIMVASTATIN 20 MG ORAL TABLET 945631 SIMVASTATIN Inactive COUMADIN 6 MG ORAL TABLET 1 by mouth every other day 2 COUMADIN 6 MG ORAL TABLET 796559 WARFARIN SODIUM Inactive COUMADIN 5 MG ORAL TABLET 1 by mouth every other day 2 COUMADIN 5 MG ORAL TABLET 629287 WARFARIN SODIUM Inactive LISINOPRIL 20 MG ORAL TABLET 1 tab po at HS LISINOPRIL 20 MG ORAL TABLET 907843 LISINOPRIL Inactive LISINOPRIL-HYDROCHLOROTHIAZIDE 20-12.5 MG ORAL TABLET 1 tab by m outh daily LISINOPRIL-HYDROCHLOROTHIAZIDE 20-12.5 MG ORAL TABLET 112645 LISINOPRIL-HYDROCHLOROTHIAZIDE Inactive POLYTRIM 20327-9.1 UNIT/ML-% OPHTHALMIC SOLUTION 1 rui p in affected eye every 3 hours while awake x 7 days POLYTRIM 1000 0-0.1 UNIT/ML-% OPHTHALMIC SOLUTION 571745 POLYMYXIN B-TRIMETHOPRIM Inactive COUMADIN 4 MG ORAL TABLET 1 tablet daily COUMADIN 4 MG ORAL TABLET 654472 WARFARIN SODIUM Inactive CLONIDINE HCL 0.1 MG ORAL TABLET 1 po bid 7 days, then 1/2 t ab po bid 7 days CLONIDINE HCL 0.1 MG ORAL TABLET 157004 CLONIDIN E HCL Inactive ALLOPURINOL 300 MG ORAL TABLET Take 1 tablet by mouth daily 2012 ALLOPURINOL 300 MG ORAL TABLET 701514 ALLOPURINOL I nactive MECLIZINE HCL 25 MG ORAL TABLET 1 po tid 3 days, then 1/2 ta b tid 3 days MECLIZINE HCL 25 MG ORAL TABLET 712350 MECLIZINE HCL Inactive AMLODIPINE BESYLATE 5 MG ORAL TABLET 1 tablet by mouth daily 201 01/20/04 AMLODIPINE BESYLATE 5 MG ORAL TABLET 050960 AMLODIPINE BESYLATE Inactive KEFLEX 500 MG ORAL CAPSULE 1 po qid K EFLEX 500 MG ORAL CAPSULE 551496 CEPHALEXIN Inactive LOVENOX 100 MG/ML SUBCUTANEOUS SOLUTION One injection twice a da y LOVENOX 100 MG/ML SUBCUTANEOUS SOLUTION 375504 ENOXAPAR IN SODIUM Inactive Vital Signs Date [...] - Chem istry sodium, serum 139 mmol/L 334-076 8830/07/17 potassium, serum 4.2 mmol/L 3.5-5.2 chloride, serum 102 mmol/L 98-107 carbon dioxide, venous blood 28.9 mmol/L 21.0-32 .0 blood glucose 211 mg/dL 65-110 calcium, serum 10.6 mg/dL 8.5-10.1 urea nitrogen, blood 29 mg/dL 7-18 creatinine, serum 1.24 mg/dL 0.60-1.30 sodium, serum 141 mmol/L 803-243 1447/08/07 potassium, serum 4.5 mmol/L 3.5-5.2 chloride, serum [...] ... - Chemistry sodium, serum 144 mmol/L 050-250 0340/06/12 carbon dioxide, venous blood 26.6 mmol/L 21.0-32 [...] 1.0-3.5 Encounters Code Encounter Date Provider Facility CPT-81086 Level 3 Est. Patient 18:25:53 CDT Mitch Castellano janelle [facility] CPT-45752 Level 3 Est. Patient 19:43:34 CDT Mitch luis [facility] CPT-96696 Level 4 Est. Patient 09:30:18 CDT Mitch Castellano janelle [facility] CPT-56097 Level 3 Est. Patient 15:10:14 CDT Joe kamara [facility] CPT-47873 Level 3 Est. Patient 15:03:46 CDT Joe kamara [facility] CPT-78296 Level 3 Est. Patient 14:21:06 CDT Mitch luis [facility] CPT-79309 Level 3 Est. Patient 14:52:06 CDT Joe kamara [facility] CPT-45178 Level 3 Est. Patient 09:34:30 NUTRITION REPRESENTATIVE Mitch luis [facility] CPT-68639 Level 3 Est. Patient 09:37:15 CDT Mitch luis [facility] CPT-25573 Level 3 Est. Patient 17:01:00 NUTRITION REPRESENTATIVE Mitch luis [facility] CPT-00547 Level 3 Est. Patient 13:53:19 NUTRITION REPRESENTATIVE Mitch luis [facility] CPT-23390 Level 3 Est. Patient 19:19:37 NUTRITION REPRESENTATIVE Mitch luis [facility] CPT-09788 Level 3 Est. Patient 13:25:53 NUTRITION REPRESENTATIVE Tavo toure MD [facility] CPT-95921 Level 3 Est. Patient 18:17:28 CDT Mitch luis [facility] CPT-87908 Level 3 Est. Patient 15:22:57 CDT Mitch luis [facility] CPT-83638 Level 3 Est. Patient 18:21:50 CDT Mitch luis [facility] CPT-17366 Level 3 Est. Patient 18:20:38 CDT Mitch luis [facility] CPT-09549 Level 3 Est. Patient 15:37:55 CDT Mitch luis [facility] CPT-27881 Level 2 Est. Patient 15:54:44 CDT Carmine benton MD [facility] CPT-86214 Level 3 Est. Patient 21:46:01 NUTRITION REPRESENTATIVE Mitch luis [facility] CPT-00564 Level 3 Est. Patient 22:15:50 CDT Mitch luis [facility] CPT-38263 Level 3 Est. Patient 10:48:15 CDT Mitch luis [facility] CPT-52642 Level 3 Est. Patient 23:20:57 CDT Tavo toure MD [facility] CPT-32546 Level 3 Est. Patient 16:26:13 CDT Mitch luis [facility] Procedures Code Procedure Name Date Entry Date Standard Desc ription CPT-47813 Venipuncture Draw Fee 09:26:17 CDT CPT-71751 PT/INR - LAB USE ONLY 13:32:49 NUTRITION REPRESENTATIVE CPT-43303 Venipuncture Draw Fee 13:32:49 NUTRITION REPRESENTATIVE CPT-16214 PT/INR - LAB USE ONLY 10:34:49 NUTRITION REPRESENTATIVE CPT-06715 Venipuncture Draw Fee 10:34:48 NUTRITION REPRESENTATIVE CPT-49749 PT/INR - LAB USE ONLY 09:22:03 NUTRITION REPRESENTATIVE CPT-14081 Venipuncture Draw Fee 09:22:02 NUTRITION REPRESENTATIVE CPT-80740 Hemoccult IFOBT - LAB USE ONLY 10:27:22 CDT CPT-11943 Venipuncture Draw Fee 08:27:08 CDT CPT-66457 Liver Profile - LAB USE ONLY 08:27:07 CDT 2 CPT-85824 Microalbumin - LAB USE ONLY 08:27:07 CDT 20 25/05/09 CPT-42338 PT/INR - LAB USE ONLY 08:27:07 CDT CPT-49405 HGBA1C - LAB USE ONLY 08:27:07 CDT CPT-47136 CBC - LAB USE ONLY 08:27:07 CDT CPT-43448 Venipuncture Draw Fee 11:09:14 CDT CPT-86777 Venipuncture Draw Fee 08:32:21 NUTRITION REPRESENTATIVE CPT-27257 Venipuncture Draw Fee 09:38:56 NUTRITION REPRESENTATIVE CPT-18322 No Charge Offi Visit 21:36:07 CDT 1 CPT-99726 Venipuncture Draw Fee 10:13:28 NUTRITION REPRESENTATIVE CPT-97857 Venipuncture Draw Fee 08:31:11 CDT CPT-66218 Aspir/Inject Med Joint 18:17:28 CDT CPT-36348 Venipuncture Draw Fee 10:13:30 CDT CPT-62958 Venipuncture Draw Fee 08:31:43 NUTRITION REPRESENTATIVE CPT-JTINJ Joint Injection 18:34:50 CDT CPT-63964 Knee 3V 12:25:09 CDT CPT-34438 Venipuncture Draw Fee 12:15:57 CDT CPT-060 Medical Surveillance Exam 21:31:43 CDT 2011 CPT-14784 Venipuncture Draw Fee 08:32:05 NUTRITION REPRESENTATIVE CPT-OV Office Visit 18:19:06 CDT
--- OUTSIDE RECORDS SUMMARY | 2020-01-18 13:25 | XMS REPORT | Clinical Summary ---
Author Author Admin, Mitch Leon Organization [facility] [employer] Address Unknown Phone Unavailable Allergies, Adverse Reactions, [...] tab to equal 7mg daily WARFARIN SODIUM 82580306081 Active Norma Cazares Active COLCRYS 0.6 MG TABS 1 tab qid prn gout COLCHICINE 43018424399 Active Kathie Juan RPT,RMA Active INVOKANA 100 MG ORAL TABS 1 tablet orally daily CANAGLIFLOZIN 61513127678 Active Mitch Urbina DO Active MINOXIDIL 2.5 MG TABS 1 tablet daily for high blood pressure 10/23 MINOXIDIL 36554883393 Active Domi Rivera MA Active AMLODIPINE BESYLATE 5 MG TABS 1 tablet by mouth daily AMLODIPINE BESYLATE 28580284840 Active Mitch Urbina DO Active MECLIZINE HCL 25 MG TAB 1 po tid 3 days, then 1/2 tab tid 3 days MECLIZINE HCL 03150784641 No Longer Active Corey SEGURA Active ALLOPURINOL 300 MG TABS Take 1 tablet by mouth daily 2 ALLOPURINOL 61863127926 No Longer Active Corey SEGURA Activ e CLONIDINE HCL 0.1 MG TABS 1 po bid 7 days, then 1/2 tab po b id 7 days CLONIDINE HCL 43742601552 No Longer Active Corey SEGURA Active COUMADIN 5 MG TABS 1 tab PO daily WARFARIN SODIUM 14033972027 Active Mitch Urbina DO Active COUMADIN 4 MG TABS 1 tablet daily WARFARIN SODI UM 04555825798 No Longer Active Corey SEGURA Active POLYTRIM 78547-1.1 UNIT/ML-% SOLN 1 drop in affected e ye every 3 hours while awake x 7 days POLYMYXIN B-TRIMETHOPRIM 71261108993 N o Longer Active Corey SEGURA Active LOSARTAN POTASSIUM-HCTZ 100-12.5 MG TABS 1 by mouth da rocky for high blood pressure LOSARTAN POTASSIUM-HCTZ 75606126676 Active Stephy Urbina DO Active LISINOPRIL-HYDROCHLOROTHIAZIDE 20-12.5 MG TABS 1 tab by mouth da rocky LISINOPRIL-HYDROCHLOROTHIAZIDE 85570156709 No Longer Active Mitch luis DO Active LISINOPRIL 20 MG TABS 1 tab po at HS LISINOPRIL 33384886433 No Longer Active Mitch Urbina DO Active COUMADIN 5 MG TABS 1 by mouth every other day WARFARIN SODIUM 28259882941 No Longer Active Mitch Urbina DO Active COUMADIN 6 MG TABS 1 by mouth every other day WARFARIN SODIUM 02289354678 No Longer Active Mitch W Carlitos DO Active SIMVASTATIN 40 MG TABS 1 tab daily at bedtime S IMVASTATIN 36140954622 Active Mitch Anrol Urbina DO Active SIMVASTATIN 20 MG TABS 1 tab daily at bedtime S IMVASTATIN 32752718862 No Longer Active Mitch Urbina DO Active LOVENOX 100 MG/ML SC SOLN One injection twice a day 09/15/15 ENOXAPARIN SODIUM 76023416511 No Longer Active Carmine Navarrete ctive JANUVIA 50 MG TABS Take one by mouth daily DIEGO GLIPTIN PHOSPHATE 52109234867 Active Mitch Urbina DO Active JANUVIA 100 MG TABS 1/2 by mouth every day DIEGO GLIPTIN PHOSPHATE 70565965546 No Longer Active Bijal Segal RN Active METFORMIN HCL 500 MG TABS 2 by mouth twice daily METFORMIN HCL 03953609747 Active Mitch Urbina DO Active GLIMEPIRIDE 4 MG TABS 1 tab po bid GLIMEPIRIDE 050621 52873 Active Mitch Ambrose Carlitos DO Active COLCRYS 0.6 MG TABS 1 po q 6 hours prn gout pain 03/02 COLCHICINE 17860481226 No Longer Active Camila Reese Active LISINOPRIL 5 MG TABS 1 by mouth every day LISIN OPRIL 43691469135 No Longer Active Nguyen Perez Active KLOR-CON 20 MEQ PACK Take one by mouth daily 8 POTASSIUM CHLORIDE 27326587394 No Longer Active Nguyenmolly Perez Active FUROSEMIDE 40 MG TABS 1 by mouth daily FUROSEMI DE 95187228750 No Longer Active Nguyen Perez Active PROVIGIL 200 MG TABS 1/2 tab po q day MODAFINIL 35118 585769 Active Kathie Juan RPT,RMA Active PROVIGIL 100 MG TABS Take one by mouth daily MO DAFINIL 08539609061 No Longer Active Mitch Urbina DO Active BACTRIM DS 800-160 MG TAB 1 tab by mouth twice daily 2 TRIMETHOPRIM-SULFAMETHOXAZOLE 55094763820 No Longer Active Renan Hays MD Active FAMOTIDINE 20 MG TABS by mouth twice a day FAMOTI DINE 33397622986 Active Mitch Urbina DO Active ADULT ASPIRIN LOW STRENGTH 81 MG TBDP 1 by mouth every daily ASPIRIN 42488821124 Active Mitch Urbina DO Active METOPROLOL TARTRATE 50 MG TABS 1 by mouth twice daily METOPROLOL TARTRATE 50540978703 Active Mitch Urbina DO Active BACTRIM DS 800-160 MG TAB 1 tab by mouth twice daily 2 BACTRIM DS 800-160 MG TAB 196859 TRIMETHOPRIM-SULFAMETHOXAZOLE Inac tive PROVIGIL 100 MG TABS Take one by mouth daily 4 PROVIGIL 100 MG TABS 938902 MODAFINIL Inactive FUROSEMIDE 40 MG TABS 1 by mouth daily FU ROSEMIDE 40 MG TABS 164069 FUROSEMIDE Inactive KLOR-CON 20 MEQ PACK Take one by mouth daily 8 KLOR-CON 20 MEQ PACK 359680 POTASSIUM CHLORIDE Inactive LISINOPRIL 5 MG TABS 1 by mouth every day LISINOPRIL 5 MG TABS 476959 LISINOPRIL Inactive COLCRYS 0.6 MG TABS 1 po q 6 hours prn gout pain 03/02 COLCRYS 0.6 MG TABS 038073 COLCHICINE Inactive JANUVIA 100 MG TABS 1/2 by mouth every day JANUVI A 100 MG TABS SITAGLIPTIN PHOSPHATE Inactive SIMVASTATIN 20 MG TABS 1 tab daily at bedtime SIMVASTATIN 20 MG TABS 325956 SIMVASTATIN Inactive COUMADIN 6 MG TABS 1 by mouth every other day COUMADIN 6 MG TABS 698524 WARFARIN SODIUM Inactive COUMADIN 5 MG TABS 1 by mouth every other day COUMADIN 5 MG TABS 649990 WARFARIN SODIUM Inactive LISINOPRIL 20 MG TABS 1 tab po at HS KOKI NOPRIL 20 MG TABS 649813 LISINOPRIL Inactive LISINOPRIL-HYDROCHLOROTHIAZIDE 20-12.5 MG TABS 1 tab by mouth da rocky LISINOPRIL-HYDROCHLOROTHIAZIDE 20-12.5 MG TABS 093709 LISINOPRIL-HYDROCHLOROTHIAZIDE Inactive POLYTRIM 70602-6.1 UNIT/ML-% SOLN 1 drop in affected e ye every 3 hours while awake x 7 days POLYTRIM 46891-9.1 UNIT/ML-% SOLN 72873 7 POLYMYXIN B-TRIMETHOPRIM Inactive COUMADIN 4 MG TABS 1 tablet daily COUMADIN 4 MG TABS 497336 WARFARIN SODIUM Inactive CLONIDINE HCL 0.1 MG TABS 1 po bid 7 days, then 1/2 tab po b id 7 days CLONIDINE HCL 0.1 MG TABS 352118 CLONIDINE HCL I nactive ALLOPURINOL 300 MG TABS Take 1 tablet by mouth daily 2 ALLOPURINOL 300 MG TABS 526694 ALLOPURINOL Inactive MECLIZINE HCL 25 MG TAB 1 po tid 3 days, then 1/2 tab tid 3 days MECLIZINE HCL 25 MG TAB 887416 MECLIZINE HCL Inactive LOVENOX 100 MG/ML SC SOLN One injection twice a day 09/15/15 LOVENOX 100 MG/ML SC SOLN 409716 ENOXAPARIN SODIUM Inactive Vital Signs Date Name [...] Range Description Chart Maintenance: hemoccult added to [facility] - Chemistry occult blood, stool [...] - Chem istry sodium, serum 136 mmol/L 325-017 4123/01/14 carbon dioxide, venous blood 25.4 mmol/L 21.0-32 [...] CBC - Chemistry cholesterol, serum 136 mg/dL 425-403 4389/08/09 triglyceride, serum, fasting 187 mg/dL 30-200 HDL [...] 1.0-3.5 Encounters Code Encounter Date Provider Facility CPT-55467 Level 3 Est. Patient 14:21:06 CDT Mitch luis [facility] CPT-70281 Level 3 Est. Patient 14:52:06 [facility] Level 3 Est. Patient 09:34:30 EQUAL OPPORTUNITY REPRESENTATIVE Mitch luis [facility] CPT-82075 Level 3 Est. Patient 09:37:15 CDT Mitch luis [facility] CPT-06401 Level 3 Est. Patient 17:01:00 EQUAL OPPORTUNITY REPRESENTATIVE Mitch luis [facility] CPT-73595 Level 3 Est. Patient 13:53:19 EQUAL OPPORTUNITY REPRESENTATIVE Mitch luis [facility] CPT-00087 Level 3 Est. Patient 19:19:37 EQUAL OPPORTUNITY REPRESENTATIVE Mitch luis [facility] CPT-95817 Level 3 Est. Patient 13:25:53 EQUAL OPPORTUNITY REPRESENTATIVE Tavo toure MD [facility] CPT-66891 Level 3 Est. Patient 18:17:28 CDT Mitch luis [facility] CPT-10760 Level 3 Est. Patient 15:22:57 CDT Mitch luis [facility] CPT-22535 Level 3 Est. Patient 18:21:50 CDT Mitch luis [facility] CPT-58153 Level 3 Est. Patient 18:20:38 CDT Mitch luis [facility] CPT-76407 Level 3 Est. Patient 15:37:55 CDT Mitch luis [facility] CPT-88031 Level 2 Est. Patient 15:54:44 CDT Carmine benton MD [facility] CPT-61168 Level 3 Est. Patient 21:46:01 EQUAL OPPORTUNITY REPRESENTATIVE Mitch luis [facility] CPT-31338 Level 3 Est. Patient 22:15:50 CDT Mitch luis [facility] CPT-08010 Level 3 Est. Patient 10:48:15 CDT Mitch luis [facility] CPT-62093 Level 3 Est. Patient 23:20:57 CDT Tavo toure MD [facility] CPT-55992 Level 3 Est. Patient 16:26:13 CDT Mitch luis [facility] Procedures Code Procedure Name Date Entry Date Standard Desc ription CPT-40966 Hemoccult IFOBT - LAB USE ONLY 10:27:22 CDT CPT-53541 Venipuncture Draw Fee 08:27:08 CDT CPT-11330 Liver Profile - LAB USE ONLY 08:27:07 CDT 2 CPT-53339 Microalbumin - LAB USE ONLY 08:27:07 CDT 20 25/05/09 CPT-79696 PT/INR - LAB USE ONLY 08:27:07 CDT CPT-68207 HGBA1C - LAB USE ONLY 08:27:07 CDT CPT-16903 CBC - LAB USE ONLY 08:27:07 CDT CPT-82645 Venipuncture Draw Fee 11:09:14 CDT CPT-46404 Venipuncture Draw Fee 08:32:21 EQUAL OPPORTUNITY REPRESENTATIVE CPT-22745 Venipuncture Draw Fee 09:38:56 EQUAL OPPORTUNITY REPRESENTATIVE CPT-99270 No Charge Offi Visit 21:36:07 CDT 1 CPT-04681 Venipuncture Draw Fee 10:13:28 EQUAL OPPORTUNITY REPRESENTATIVE CPT-27287 Venipuncture Draw Fee 08:31:11 CDT CPT-98435 Aspir/Inject Med Joint 18:17:28 CDT CPT-70000 Venipuncture Draw Fee 10:13:30 CDT CPT-16939 Venipuncture Draw Fee 08:31:43 EQUAL OPPORTUNITY REPRESENTATIVE CPT-JTINJ Joint Injection 18:34:50 CDT CPT-42821 Knee 3V 12:25:09 CDT CPT-02698 Venipuncture Draw Fee 12:15:57 CDT CPT-060 Medical Surveillance Exam 21:31:43 CDT 2011 CPT-51656 Venipuncture Draw Fee 08:32:05 EQUAL OPPORTUNITY REPRESENTATIVE CPT-OV Office Visit 18:19:06 CDT
--- OUTSIDE RECORDS SUMMARY | 2020-01-18 13:25 | XMS REPORT | Clinical Summary ---
Author Author Admin, Mitch Leon Organization [facility] Address Unknown Phone Unavailable Allergies, [...] vessel, false pass or graft EDEMA 782.3 Active Mitch [...] 1 tablet by mouth daily AMLODIPINE BESYLATE 45341596792 Active Mitch Urbina DO Active MECLIZINE HCL 25 MG TAB 1 po tid 3 days, then 1/2 tab tid 3 days MECLIZINE HCL 72006131222 No Longer Active Corey SEGURA Active ALLOPURINOL 300 MG TABS Take 1 tablet by mouth daily 2 ALLOPURINOL 03563379059 No Longer Active Corey SEGURA Activ e CLONIDINE HCL 0.1 MG TABS 1 po bid 7 days, then 1/2 tab po b id 7 days CLONIDINE HCL 77953011353 No Longer Active Corey SEGURA Active COUMADIN 5 MG TABS 1 tab PO daily WARFARIN SODIUM 88074815804 Active Mitch Urbina DO Active COUMADIN 4 MG TABS 1 tablet daily WARFARIN SODI UM 15534427424 No Longer Active Corey SEGURA Active POLYTRIM 14509-1.1 UNIT/ML-% SOLN 1 drop in affected e ye every 3 hours while awake x 7 days POLYMYXIN B-TRIMETHOPRIM 32565959440 N o Longer Active Corey SEGURA Active LOSARTAN POTASSIUM-HCTZ 100-12.5 MG TABS 1 by mouth da rocky for high blood pressure LOSARTAN POTASSIUM-HCTZ 62695348676 Active Stephy Urbina DO Active LISINOPRIL-HYDROCHLOROTHIAZIDE 20-12.5 MG TABS 1 tab by mouth da rocky LISINOPRIL-HYDROCHLOROTHIAZIDE 18739427337 No Longer Active Mitch luis DO Active LISINOPRIL 20 MG TABS 1 tab po at HS LISINOPRIL 84177212965 No Longer Active Mitch Urbina DO Active COUMADIN 5 MG TABS 1 by mouth every other day WARFARIN SODIUM 40380298826 No Longer Active Mitch Urbina DO Active COUMADIN 6 MG TABS 1 by mouth every other day WARFARIN SODIUM 62152953308 No Longer Active Mitch Urbina DO Active COLCRYS 0.6 MG TABS 1 tab qid prn gout COLCHICINE 25118219386 Active Corey SEGURA Active SIMVASTATIN 40 MG TABS 1 tab daily at bedtime S IMVASTATIN 03339197376 Active Mitch Urbina DO Active SIMVASTATIN 20 MG TABS 1 tab daily at bedtime S IMVASTATIN 44958535248 No Longer Active Mitch Urbina DO Active LOVENOX 100 MG/ML SC SOLN One injection twice a day 09/15/15 ENOXAPARIN SODIUM 23976055314 No Longer Active Carmine Navarrete ctive JANUVIA 50 MG TABS Take one by mouth daily DIEGO GLIPTIN PHOSPHATE 25957191949 Active Domi Rivera MA Active JANUVIA 100 MG TABS 1/2 by mouth every day DIEGO GLIPTIN PHOSPHATE 84295735385 No Longer Active Bijal Segal RN Active METFORMIN HCL 500 MG TABS 2 by mouth twice daily METFORMIN HCL 50817088304 Active Mitch Urbina DO Active GLIMEPIRIDE 4 MG TABS 1 tab po bid GLIMEPIRIDE 352991 31030 Active Mitch Urbina DO Active COLCRYS 0.6 MG TABS 1 po q 6 hours prn gout pain 03/02 COLCHICINE 81261103003 No Longer Active Camila Reese Active LISINOPRIL 5 MG TABS 1 by mouth every day LISIN OPRIL 78040977910 No Longer Active Nguyenmolly Perez Active KLOR-CON 20 MEQ PACK Take one by mouth daily 8 POTASSIUM CHLORIDE 85905079968 No Longer Active Nguyen Perez Active FUROSEMIDE 40 MG TABS 1 by mouth daily FUROSEMI DE 80782032594 No Longer Active Nguyen Perez Active PROVIGIL 200 MG TABS 1/2 tab po q day MODAFINIL 26364 675972 Active Mitch Urbina DO Active PROVIGIL 100 MG TABS Take one by mouth daily MO DAFINIL 93117239325 No Longer Active Mitch Urbina DO Active BACTRIM DS 800-160 MG TAB 1 tab by mouth twice daily 2 TRIMETHOPRIM-SULFAMETHOXAZOLE 33875356334 No Longer Active Renan Hays MD Active FAMOTIDINE 20 MG TABS by mouth twice a day FAMOTI DINE 82369106458 Active Mitch W Carlitos DO Active ADULT ASPIRIN LOW STRENGTH 81 MG TBDP 1 by mouth every daily ASPIRIN 58517596411 Active Mitch Urbina DO Active METOPROLOL TARTRATE 50 MG TABS 1 by mouth twice daily METOPROLOL TARTRATE 62361816410 Active Curly Coker MD Active BACTRIM DS 800-160 MG TAB 1 tab by mouth twice daily 2 BACTRIM DS 800-160 MG TAB TRIMETHOPRIM-SULFAMETHOXAZOLE Inac tive PROVIGIL 100 MG TABS Take one by mouth daily 4 PROVIGIL 100 MG TABS 244965 MODAFINIL Inactive FUROSEMIDE 40 MG TABS 1 by mouth daily FU ROSEMIDE 40 MG TABS 302857 FUROSEMIDE Inactive KLOR-CON 20 MEQ PACK Take one by mouth daily 8 KLOR-CON 20 MEQ PACK 329104 POTASSIUM CHLORIDE Inactive LISINOPRIL 5 MG TABS 1 by mouth every day LISINOPRIL 5 MG TABS 809804 LISINOPRIL Inactive COLCRYS 0.6 MG TABS 1 po q 6 hours prn gout pain 03/02 COLCRYS 0.6 MG TABS 507411 COLCHICINE Inactive JANUVIA 100 MG TABS 1/2 by mouth every day JANUVI A 100 MG TABS SITAGLIPTIN PHOSPHATE Inactive SIMVASTATIN 20 MG TABS 1 tab daily at bedtime SIMVASTATIN 20 MG TABS 404365 SIMVASTATIN Inactive COUMADIN 6 MG TABS 1 by mouth every other day COUMADIN 6 MG TABS 553473 WARFARIN SODIUM Inactive COUMADIN 5 MG TABS 1 by mouth every other day COUMADIN 5 MG TABS 182381 WARFARIN SODIUM Inactive LISINOPRIL 20 MG TABS 1 tab po at HS KOKI NOPRIL 20 MG TABS 128245 LISINOPRIL Inactive LISINOPRIL-HYDROCHLOROTHIAZIDE 20-12.5 MG TABS 1 tab by mouth da rocky LISINOPRIL-HYDROCHLOROTHIAZIDE 20-12.5 MG TABS 801510 LISINOPRIL-HYDROCHLOROTHIAZIDE Inactive POLYTRIM 39322-9.1 UNIT/ML-% SOLN 1 drop in affected e ye every 3 hours while awake x 7 days POLYTRIM 01562-2.1 UNIT/ML-% SOLN 31950 7 POLYMYXIN B-TRIMETHOPRIM Inactive COUMADIN 4 MG TABS 1 tablet daily COUMADIN 4 MG TABS 281549 WARFARIN SODIUM Inactive CLONIDINE HCL 0.1 MG TABS 1 po bid 7 days, then 1/2 tab po b id 7 days CLONIDINE HCL 0.1 MG TABS 617916 CLONIDINE HCL I nactive ALLOPURINOL 300 MG TABS Take 1 tablet by mouth daily 2 ALLOPURINOL 300 MG TABS 640702 ALLOPURINOL Inactive MECLIZINE HCL 25 MG TAB 1 po tid 3 days, then 1/2 tab tid 3 days MECLIZINE HCL 25 MG TAB 262273 MECLIZINE HCL Inactive LOVENOX 100 MG/ML SC SOLN One injection twice a day 09/15/15 LOVENOX 100 MG/ML SC SOLN 780530 ENOXAPARIN SODIUM Inactive Vital Signs Date Name [...] Ag - Chemistry sodium, serum 141 mmol/L 114-497 7254/07/06 potassium, serum 4.4 mmol/L 3.5-5.2 chloride, serum [...] Panel - Chemistry sodium, serum 137 mmol/L 717-681 5907/11/14 potassium, serum 4.4 mmol/L 3.5-5.2 chloride, serum [...] 8.0 % 4.3-6.0 cholesterol, serum 130 mg/dL 912-420 9120/11/14 triglyceride, serum, fasting 288 mg/dL 30-200 HDL cholesterol, serum 33 mg/dL 32-96 LDL cholesterol, serum 39 mg/dL 0-130 Lab Report: Comp. Metabolic Panel, HGBA1 C, Lipid Panel, Prothrombin Time - Chemistry sodium, serum 136 mmol/L 195-523 4684/12/02 potassium, serum 4.4 mmol/L 3.5-5.2 chloride, serum [...] 7.6 % 4.3-6.0 cholesterol, serum 117 mg/dL 295-408 9735/12/02 triglyceride, serum, fasting 226 mg/dL 30-200 HDL [...] 7.0 % 4.3-6.0 cholesterol, serum 120 mg/dL 423-230 7337/07/06 triglyceride, serum, fasting 186 mg/dL 30-200 HDL [...] 1.0-3.5 Encounters Code Encounter Date Provider Facility CPT-40048 Level 3 Est. Patient 09:37:15 CDT Mitch W L janelle DO [facility] CPT-62247 Level 3 Est. Patient 17:01:00 METALLOGRAPHER Mitch W L ee [facility] CPT-15675 Level 3 Est. Patient 13:53:19 METALLOGRAPHER Mitch W L janelle [facility] CPT-65419 Level 3 Est. Patient 19:19:37 METALLOGRAPHER Mitch W L janelle [facility] CPT-58513 Level 3 Est. Patient 13:25:53 METALLOGRAPHER Tavo toure MD [facility] CPT-11229 Level 3 Est. Patient 18:17:28 CDT Mitch Ambrose L janelle [facility] CPT-63932 Level 3 Est. Patient 15:22:57 CDT Mitch luis [facility] CPT-30529 Level 3 Est. Patient 18:21:50 CDT Mitch W L janelle [facility] CPT-63246 Level 3 Est. Patient 18:20:38 CDT Mitch W L janelle [facility] CPT-25581 Level 3 Est. Patient 15:37:55 CDT Mitch W L janelle [facility] CPT-96268 Level 2 Est. Patient 15:54:44 CDT Carmine benton MD [facility]-72661 Level 3 Est. Patient 21:46:01 METALLOGRAPHER Mitch luis [facility] CPT-63758 Level 3 Est. Patient 22:15:50 CDT Mitch luis [facility] CPT-32169 Level 3 Est. Patient 10:48:15 CDT Mitch luis [facility] CPT-36072 Level 3 Est. Patient 23:20:57 CDT Tavo toure MD [facility] CPT-15360 Level 3 Est. Patient 16:26:13 CDT Mitch luis [facility] Procedures Code Procedure Name Date Entry Date Standard Desc ription CPT-86530 No Charge Offi Visit 21:36:07 CDT 1 CPT-37684 Venipuncture Draw Fee 10:13:28 METALLOGRAPHER CPT-99290 Venipuncture Draw Fee 08:31:11 CDT CPT-85022 Aspir/Inject Med Joint 18:17:28 CDT CPT-91743 Venipuncture Draw Fee 10:13:30 CDT CPT-95302 Venipuncture Draw Fee 08:31:43 METALLOGRAPHER CPT-JTINJ Joint Injection 18:34:50 CDT CPT-68981 Knee 3V 12:25:09 CDT CPT-03456 Venipuncture Draw Fee 12:15:57 CDT CPT-060 Medical Surveillance Exam 21:31:43 CDT 2011 CPT-44556 Venipuncture Draw Fee 08:32:05 METALLOGRAPHER CPT-OV Office Visit 18:19:06 CDT
--- OUTSIDE RECORDS SUMMARY | 2020-01-18 13:25 | XMS REPORT | Clinical Summary ---
[...] [place] or graft EDEMA 782.3 Active Mitch Urbina [...] 1 tablet by mouth daily AMLODIPINE BESYLATE 19510916702 Active Mitch Urbina DO Active MECLIZINE HCL 25 MG TAB 1 po tid 3 days, then 1/2 tab tid 3 days MECLIZINE HCL 54348852600 No Longer Active Corey SEGURA Active ALLOPURINOL 300 MG TABS Take 1 tablet by mouth daily 2 ALLOPURINOL 83535122175 No Longer Active Corey SEGURA Activ e CLONIDINE HCL 0.1 MG TABS 1 po bid 7 days, then 1/2 tab po b id 7 days CLONIDINE HCL 73528031572 No Longer Active Corey SEGURA Active COUMADIN 5 MG TABS 1 tab PO daily WARFARIN SODIUM 53284964979 Active Mitch Urbina DO Active COUMADIN 4 MG TABS 1 tablet daily WARFARIN SODI UM 05320868821 No Longer Active Corey SEGURA Active POLYTRIM 42020-4.1 UNIT/ML-% SOLN 1 drop in affected e ye every 3 hours while awake x 7 days POLYMYXIN B-TRIMETHOPRIM 15600102846 N o Longer Active Corey SEGURA Active LOSARTAN POTASSIUM-HCTZ 100-12.5 MG TABS 1 by mouth da rocky for high blood pressure LOSARTAN POTASSIUM-HCTZ 55630352114 Active Stephy Urbina DO Active LISINOPRIL-HYDROCHLOROTHIAZIDE 20-12.5 MG TABS 1 tab by mouth da rocky LISINOPRIL-HYDROCHLOROTHIAZIDE 84593019835 No Longer Active Mitch luis DO Active LISINOPRIL 20 MG TABS 1 tab po at HS LISINOPRIL 79374291988 No Longer Active Mitch Urbina DO Active COUMADIN 5 MG TABS 1 by mouth every other day WARFARIN SODIUM 02906861844 No Longer Active Mitch Urbina DO Active COUMADIN 6 MG TABS 1 by mouth every other day WARFARIN SODIUM 58989469426 No Longer Active Mitch Urbina DO Active COLCRYS 0.6 MG TABS 1 tab qid prn gout COLCHICINE 47280007463 Active Corey SEGURA Active SIMVASTATIN 40 MG TABS 1 tab daily at bedtime S IMVASTATIN 03636372598 Active Mitch Urbina DO Active SIMVASTATIN 20 MG TABS 1 tab daily at bedtime S IMVASTATIN 19316587542 No Longer Active Mitch Urbina DO Active LOVENOX 100 MG/ML SC SOLN One injection twice a day 09/15/15 ENOXAPARIN SODIUM 57912334460 No Longer Active Carmine Navarrete ctive JANUVIA 50 MG TABS Take one by mouth daily DIEGO GLIPTIN PHOSPHATE 79499968119 Active Domi Rivera MA Active JANUVIA 100 MG TABS 1/2 by mouth every day DIEGO GLIPTIN PHOSPHATE 98343767233 No Longer Active Bijal Segal RN Active METFORMIN HCL 500 MG TABS 2 by mouth twice daily METFORMIN HCL 36908337942 Active Mitch Urbina DO Active GLIMEPIRIDE 4 MG TABS 1 tab po bid GLIMEPIRIDE 877859 79918 Active Mitch Urbina DO Active COLCRYS 0.6 MG TABS 1 po q 6 hours prn gout pain 03/02 COLCHICINE 49954595454 No Longer Active Camila Reese Active LISINOPRIL 5 MG TABS 1 by mouth every day LISIN OPRIL 03883587305 No Longer Active Nguyenmolly Perez Active KLOR-CON 20 MEQ PACK Take one by mouth daily 8 POTASSIUM CHLORIDE 08973006603 No Longer Active Nguyen Perez Active FUROSEMIDE 40 MG TABS 1 by mouth daily FUROSEMI DE 52355810734 No Longer Active Nguyen Perez Active PROVIGIL 200 MG TABS 1/2 tab po q day MODAFINIL 37422 402901 Active Mitch Urbina DO Active PROVIGIL 100 MG TABS Take one by mouth daily MO DAFINIL 01567540060 No Longer Active Mitch Urbina DO Active BACTRIM DS 800-160 MG TAB 1 tab by mouth twice daily 2 TRIMETHOPRIM-SULFAMETHOXAZOLE 57837596034 No Longer Active Renan Hays MD Active FAMOTIDINE 20 MG TABS by mouth twice a day FAMOTI DINE 03398846729 Active Mitch W Carlitos DO Active ADULT ASPIRIN LOW STRENGTH 81 MG TBDP 1 by mouth every daily ASPIRIN 67470885213 Active Mitch Urbina DO Active METOPROLOL TARTRATE 50 MG TABS 1 by mouth twice daily METOPROLOL TARTRATE 22280591232 Active Curly Coker MD Active BACTRIM DS 800-160 MG TAB 1 tab by mouth twice daily 2 BACTRIM DS 800-160 MG TAB TRIMETHOPRIM-SULFAMETHOXAZOLE Inac tive PROVIGIL 100 MG TABS Take one by mouth daily 4 PROVIGIL 100 MG TABS 076918 MODAFINIL Inactive FUROSEMIDE 40 MG TABS 1 by mouth daily FU ROSEMIDE 40 MG TABS 820679 FUROSEMIDE Inactive KLOR-CON 20 MEQ PACK Take one by mouth daily 8 KLOR-CON 20 MEQ PACK 621988 POTASSIUM CHLORIDE Inactive LISINOPRIL 5 MG TABS 1 by mouth every day LISINOPRIL 5 MG TABS 551095 LISINOPRIL Inactive COLCRYS 0.6 MG TABS 1 po q 6 hours prn gout pain 03/02 COLCRYS 0.6 MG TABS 236042 COLCHICINE Inactive JANUVIA 100 MG TABS 1/2 by mouth every day JANUVI A 100 MG TABS SITAGLIPTIN PHOSPHATE Inactive SIMVASTATIN 20 MG TABS 1 tab daily at bedtime SIMVASTATIN 20 MG TABS 372214 SIMVASTATIN Inactive COUMADIN 6 MG TABS 1 by mouth every other day COUMADIN 6 MG TABS 013196 WARFARIN SODIUM Inactive COUMADIN 5 MG TABS 1 by mouth every other day COUMADIN 5 MG TABS 476560 WARFARIN SODIUM Inactive LISINOPRIL 20 MG TABS 1 tab po at HS KOKI NOPRIL 20 MG TABS 329297 LISINOPRIL Inactive LISINOPRIL-HYDROCHLOROTHIAZIDE 20-12.5 MG TABS 1 tab by mouth da rocky LISINOPRIL-HYDROCHLOROTHIAZIDE 20-12.5 MG TABS 870368 LISINOPRIL-HYDROCHLOROTHIAZIDE Inactive POLYTRIM 87768-9.1 UNIT/ML-% SOLN 1 drop in affected e ye every 3 hours while awake x 7 days POLYTRIM 69071-1.1 UNIT/ML-% SOLN 52482 7 POLYMYXIN B-TRIMETHOPRIM Inactive COUMADIN 4 MG TABS 1 tablet daily COUMADIN 4 MG TABS 606691 WARFARIN SODIUM Inactive CLONIDINE HCL 0.1 MG TABS 1 po bid 7 days, then 1/2 tab po b id 7 days CLONIDINE HCL 0.1 MG TABS 846802 CLONIDINE HCL I nactive ALLOPURINOL 300 MG TABS Take 1 tablet by mouth daily 2 ALLOPURINOL 300 MG TABS 152005 ALLOPURINOL Inactive MECLIZINE HCL 25 MG TAB 1 po tid 3 days, then 1/2 tab tid 3 days MECLIZINE HCL 25 MG TAB 278822 MECLIZINE HCL Inactive LOVENOX 100 MG/ML SC SOLN One injection twice a day 09/15/15 LOVENOX 100 MG/ML SC SOLN 164590 ENOXAPARIN SODIUM Inactive Vital Signs Date Name [...] Ag - Chemistry sodium, serum 141 mmol/L 985-849 2165/07/06 potassium, serum 4.4 mmol/L 3.5-5.2 chloride, serum [...] Panel - Chemistry sodium, serum 137 mmol/L 167-730 3488/11/14 potassium, serum 4.4 mmol/L 3.5-5.2 chloride, serum [...] 8.0 % 4.3-6.0 cholesterol, serum 130 mg/dL 474-066 7550/11/14 triglyceride, serum, fasting 288 mg/dL 30-200 HDL cholesterol, serum 33 mg/dL 32-96 LDL cholesterol, serum 39 mg/dL 0-130 Lab Report: Comp. Metabolic Panel, HGBA1 C, Lipid Panel, Prothrombin Time - Chemistry sodium, serum 136 mmol/L 203-988 4292/12/02 potassium, serum 4.4 mmol/L 3.5-5.2 chloride, serum [...] 7.6 % 4.3-6.0 cholesterol, serum 117 mg/dL 876-306 2998/12/02 triglyceride, serum, fasting 226 mg/dL 30-200 HDL [...] 7.0 % 4.3-6.0 cholesterol, serum 120 mg/dL 000-444 7371/07/06 triglyceride, serum, fasting 186 mg/dL 30-200 HDL [...] 1.0-3.5 Encounters Code Encounter Date Provider Facility CPT-83211 Level 3 Est. Patient 09:37:15 CDT Mitch luis [facility] CPT-80994 Level 3 Est. Patient 17:01:00 PATIENT FINANCIAL ADVOCATE Mitch Ambrose L janelle [facility] CPT-24077 Level 3 Est. Patient 13:53:19 PATIENT FINANCIAL ADVOCATE Mitch W L janelle DO [facility] CPT-15555 Level 3 Est. Patient 19:19:37 PATIENT FINANCIAL ADVOCATE Mitch W L ee [facility] CPT-49438 Level 3 Est. Patient 13:25:53 PATIENT FINANCIAL ADVOCATE Tavo toure MD [facility] CPT-88344 Level 3 Est. Patient 18:17:28 CDT Mitch W L janelle [facility] CPT-20515 Level 3 Est. Patient 15:22:57 CDT Mitch W L janelle [facility] CPT-92918 Level 3 Est. Patient 18:21:50 CDT Mitch W L ee [facility] CPT-14701 Level 3 Est. Patient 18:20:38 CDT Mitch W L janelle [facility] CPT-13452 Level 3 Est. Patient 15:37:55 CDT Mitch W L ee [facility] CPT-09514 Level 2 Est. Patient 15:54:44 CDT Carmine benton MD [facility]-27224 Level 3 Est. Patient 21:46:01 PATIENT FINANCIAL ADVOCATE Mitch W L ee [facility] CPT-49278 Level 3 Est. Patient 22:15:50 CDT Mitch W L ee [facility] CPT-86911 Level 3 Est. Patient 10:48:15 CDT Mitch W L ee [facility] CPT-42652 Level 3 Est. Patient 23:20:57 CDT Tavo toure MD [facility] CPT-23886 Level 3 Est. Patient 16:26:13 CDT Mitch luis [facility] Procedures Code Procedure Name Date Entry Date Standard Desc ription CPT-38401 No Charge Offi Visit 21:36:07 CDT 1 CPT-90620 Venipuncture Draw Fee 10:13:28 PATIENT FINANCIAL ADVOCATE CPT-76390 Venipuncture Draw Fee 08:31:11 CDT CPT-01085 Aspir/Inject Med Joint 18:17:28 CDT CPT-77278 Venipuncture Draw Fee 10:13:30 CDT CPT-23315 Venipuncture Draw Fee 08:31:43 PATIENT FINANCIAL ADVOCATE CPT-JTINJ Joint Injection 18:34:50 CDT CPT-43888 Knee 3V 12:25:09 CDT CPT-20453 Venipuncture Draw Fee 12:15:57 CDT CPT-060 Medical Surveillance Exam 21:31:43 CDT 2011 CPT-71603 Venipuncture Draw Fee 08:32:05 PATIENT FINANCIAL ADVOCATE CPT-OV Office Visit 18:19:06 CDT
--- OUTSIDE RECORDS SUMMARY | 2020-01-18 13:25 | XMS REPORT | Clinical Summary ---
[...] by mouth twice a day 2017 FAMOTIDINE 90686020952 No Longer Active Mitch Urbina DO Active COLCRYS 0.6 MG ORAL TABLET 1 tab qid prn gout C OLCHICINE 31118629784 No Longer Active Mitch Urbina DO Active GLIMEPIRIDE 2 MG ORAL TABLET 1 po BID GLIMEPIRID E 98086651160 Active Renee Oconnor FORMS EXAMINER Active KEFLEX 500 MG ORAL CAPSULE 1 po qid CEPHALEXI N 94168621117 No Longer Active Mitch Urbina DO Active LOSARTAN POTASSIUM 100 MG ORAL TABLET 1 pill by mouth daily, for blood pressure LOSARTAN POTASSIUM 69999956001 Active Ana Wallace Active AMLODIPINE BESYLATE 5 MG ORAL TABLET 1 tablet by mouth daily 201 01/20/04 AMLODIPINE BESYLATE 61625412641 No Longer Active Joe fulton APRN Active MITIGARE 0.6 MG ORAL CAPSULE 2 capsules at onset of go ut pain, then take one capsule at 1 hour if symptoms persist. COLCHICINE 59 819204156 Active Mitch Urbina DO Active COUMADIN 1 MG ORAL TABLET 2 tabs orally daily with the 5mg tab to equal 7mg daily WARFARIN SODIUM 40576771793 Active Ana Wallace Active INVOKANA 100 MG ORAL TABLET 1 tablet orally daily CANAGLIFLOZIN 71688456605 Active Mitch Urbina DO Active MINOXIDIL 2.5 MG ORAL TABLET 1 tablet daily for high blood press ure MINOXIDIL 69962848484 Active Mitch Urbina DO Active MECLIZINE HCL 25 MG ORAL TABLET 1 po tid 3 days, then 1/2 ta b tid 3 days MECLIZINE HCL 80906902044 No Longer Active Corey SEGURA Active ALLOPURINOL 300 MG ORAL TABLET Take 1 tablet by mouth daily 2012 ALLOPURINOL 54432930397 No Longer Active Corey SEGURA Active CLONIDINE HCL 0.1 MG ORAL TABLET 1 po bid 7 days, then 1/2 t ab po bid 7 days CLONIDINE HCL 30261079856 No Longer Active Corey SEGURA Active COUMADIN 5 MG ORAL TABLET 1 tab PO daily WARFAR IN SODIUM 40911631987 Active Mitch Urbina DO Active COUMADIN 4 MG ORAL TABLET 1 tablet daily WARFAR IN SODIUM 83152028717 No Longer Active Corey SEGURA Active POLYTRIM 77058-6.1 UNIT/ML-% OPHTHALMIC SOLUTION 1 rui p in affected eye every 3 hours while awake x 7 days POLYMYXIN B-TRIMETHOP RIM 91276875747 No Longer Active Corey SEGURA Active LOSARTAN POTASSIUM-HCTZ 100-12.5 MG ORAL TABLET 1 by m outh daily for high blood pressure LOSARTAN POTASSIUM-HCTZ 80139974980 No Longer A ctive Mitch Urbina DO Active LISINOPRIL-HYDROCHLOROTHIAZIDE 20-12.5 MG ORAL TABLET 1 tab by m outh daily LISINOPRIL-HYDROCHLOROTHIAZIDE 98676330449 No Longer Active Mitch Urbina DO Active LISINOPRIL 20 MG ORAL TABLET 1 tab po at HS LIS INOPRIL 28625478114 No Longer Active Mitch Urbina DO Active COUMADIN 5 MG ORAL TABLET 1 by mouth every other day 2 WARFARIN SODIUM 52640136024 No Longer Active Mitch Urbina DO Active COUMADIN 6 MG ORAL TABLET 1 by mouth every other day 2 WARFARIN SODIUM 71117401357 No Longer Active Mitch Urbina DO Active SIMVASTATIN 40 MG ORAL TABLET 1 tab daily at bedtime SIMVASTATIN 19468852081 Active Mitch Urbina DO Active SIMVASTATIN 20 MG ORAL TABLET 1 tab daily at bedtime 2 SIMVASTATIN 57027510709 No Longer Active Mitch Urbina DO Active LOVENOX 100 MG/ML SUBCUTANEOUS SOLUTION One injection twice a da y ENOXAPARIN SODIUM 61440618297 No Longer Active Carmine uYsuf MD Active JANUVIA 50 MG ORAL TABLET Take one by mouth daily SITAGLIPTIN PHOSPHATE 85716352777 Active Mitch W Carlitos DO Active JANUVIA 100 MG ORAL TABLET 1/2 by mouth every day 2011 SITAGLIPTIN PHOSPHATE 04260007898 No Longer Active Bijal Segal RN Acti ve METFORMIN HCL 500 MG ORAL TABLET 2 by mouth twice daily METFORMIN HCL 51867999928 Active Mitch Urbina DO Active COLCRYS 0.6 MG ORAL TABLET 1 po q 6 hours prn gout pain COLCHICINE 82130466599 No Longer Active Camila Reese Active LISINOPRIL 5 MG ORAL TABLET 1 by mouth every day 11/17 LISINOPRIL 28293937220 No Longer Active Nguyen Perez Active KLOR-CON 20 MEQ ORAL PACKET Take one by mouth daily 09/10/08 POTASSIUM CHLORIDE 81976535863 No Longer Active Nguyen Perez Active FUROSEMIDE 40 MG ORAL TABLET 1 by mouth daily F UROSEMIDE 65122863694 No Longer Active Nguyen Perez Active PROVIGIL 200 MG ORAL TABLET 1/2 tab po q day MODA FINIL 52502203374 Active Renee Elvin BURNETTN Active PROVIGIL 100 MG ORAL TABLET Take one by mouth daily 08/20/04 MODAFINIL 15931222202 No Longer Active Mitch Urbina DO Active BACTRIM DS 800-160 MG ORAL TABLET 1 tab by mouth twice daily 201 10/19/09 TRIMETHOPRIM-SULFAMETHOXAZOLE 65331096760 No Longer Active Elian Hays MD Active ADULT ASPIRIN LOW STRENGTH 81 MG ORAL TABLET DISINTEGR ATING 1 by mouth every daily ASPIRIN 42407451187 Active Mitch Urbina DO Ac tive METOPROLOL TARTRATE 50 MG ORAL TABLET 1 by mouth twice daily METOPROLOL TARTRATE 31748038674 Active Mitch Urbina DO Active BACTRIM DS 800-160 MG ORAL TABLET 1 tab by mouth twice daily 201 10/19/09 BACTRIM DS 800-160 MG ORAL TABLET 725913 TRIMETHOPRIM-SULFAMETHOXAZOLE Inactive PROVIGIL 100 MG ORAL TABLET Take one by mouth daily 20 08/20/04 PROVIGIL 100 MG ORAL TABLET 178352 MODAFINIL Inactive FUROSEMIDE 40 MG ORAL TABLET 1 by mouth daily FUROSEMIDE 40 MG ORAL TABLET 950103 FUROSEMIDE Inactive KLOR-CON 20 MEQ ORAL PACKET Take one by mouth daily 09/10/08 KLOR- CON 20 MEQ ORAL PACKET 8775134 POTASSIUM CHLORIDE Inactive LISINOPRIL 5 MG ORAL TABLET 1 by mouth every day 11/17 LISINOPRIL 5 MG ORAL TABLET 308092 LISINOPRIL Inactive COLCRYS 0.6 MG ORAL TABLET 1 po q 6 hours prn gout pain COLCRYS 0.6 MG ORAL TABLET 305283 COLCHICINE Inactive JANUVIA 100 MG ORAL TABLET 1/2 by mouth every day 2011 JANUVIA 100 MG ORAL TABLET SITAGLIPTIN PHOSPHATE Inactive SIMVASTATIN 20 MG ORAL TABLET 1 tab daily at bedtime 2 SIMVASTATIN 20 MG ORAL TABLET 347031 SIMVASTATIN Inactive COUMADIN 6 MG ORAL TABLET 1 by mouth every other day COUMADIN 6 MG ORAL TABLET 630981 WARFARIN SODIUM Inactive COUMADIN 5 MG ORAL TABLET 1 by mouth every other day 2 COUMADIN 5 MG ORAL TABLET 856962 WARFARIN SODIUM Inactive LISINOPRIL 20 MG ORAL TABLET 1 tab po at HS LISINOPRIL 20 MG ORAL TABLET 183711 LISINOPRIL Inactive LISINOPRIL-HYDROCHLOROTHIAZIDE 20-12.5 MG ORAL TABLET 1 tab by m outh daily LISINOPRIL-HYDROCHLOROTHIAZIDE 20-12.5 MG ORAL TABLET 856574 LISINOPRIL-HYDROCHLOROTHIAZIDE Inactive POLYTRIM 45289-2.1 UNIT/ML-% OPHTHALMIC SOLUTION 1 rui p in affected eye every 3 hours while awake x 7 days POLYTRIM 1000 0-0.1 UNIT/ML-% OPHTHALMIC SOLUTION 581017 POLYMYXIN B-TRIMETHOPRIM Inactive COUMADIN 4 MG ORAL TABLET 1 tablet daily COUMADIN 4 MG ORAL TABLET 579573 WARFARIN SODIUM Inactive CLONIDINE HCL 0.1 MG ORAL TABLET 1 po bid 7 days, then 1/2 t ab po bid 7 days CLONIDINE HCL 0.1 MG ORAL TABLET 047400 CLONIDIN E HCL Inactive ALLOPURINOL 300 MG ORAL TABLET Take 1 tablet by mouth daily 2012 ALLOPURINOL 300 MG ORAL TABLET 454104 ALLOPURINOL I nactive MECLIZINE HCL 25 MG ORAL TABLET 1 po tid 3 days, then 1/2 ta b tid 3 days MECLIZINE HCL 25 MG ORAL TABLET 899933 MECLIZINE HCL Inactive AMLODIPINE BESYLATE 5 MG ORAL TABLET 1 tablet by mouth daily 201 01/20/04 AMLODIPINE BESYLATE 5 MG ORAL TABLET 911865 AMLODIPINE BESYLATE Inactive KEFLEX 500 MG ORAL CAPSULE 1 po qid K EFLEX 500 MG ORAL CAPSULE 721348 CEPHALEXIN Inactive COLCRYS 0.6 MG ORAL TABLET 1 tab qid prn gout COLCRYS 0.6 MG ORAL TABLET 614249 COLCHICINE Inactive FAMOTIDINE 20 MG ORAL TABLET by mouth twice a day 2017 FAMOTIDINE 20 MG ORAL TABLET 642097 FAMOTIDINE Inactive LOVENOX 100 MG/ML SUBCUTANEOUS SOLUTION One injection twice a da y LOVENOX 100 MG/ML SUBCUTANEOUS SOLUTION 020620 ENOXAPAR IN SODIUM Inactive Vital Signs Date [...] - Chem istry sodium, serum 139 mmol/L 094-891 0317/07/17 urea nitrogen, blood 29 mg/dL - creatinine, serum 1.24 mg/dL 0.60-1.30 potassium, serum 4.2 mmol/L 3.5-5.2 chloride, serum 102 mmol/L 98-107 carbon dioxide, venous blood 28.9 mmol/L 21.0-32 .0 blood glucose 211 mg/dL 65-110 calcium, serum 10.6 mg/dL 8.5-10.1 sodium, serum 141 mmol/L 221-239 7895/08/07 urea nitrogen, blood 26 mg/dL - creatinine, serum 1.15 mg/dL 0.60-1.30 potassium, serum [...] HGBA1C - Chemistry cholesterol, serum 136 mg/dL 194-406 6166/12/06 triglyceride, serum, fasting 247 mg/dL 30-200 HDL cholesterol, serum 41 mg/dL 32-60 LDL cholesterol, serum 46 mg/dL 0-130 aspartate aminotransferase (SGOT), serum 22 U/L 15-37 alanine aminotransferase (SGPT), serum 30 U/L 12-78 bilirubin, serum, total 0.80 mg/dL 0.00-1.00 hemoglobin A1C, blood, as % of total hemoglobin 6.4 % 4.3-6.0 Encounters Code Encounter Date Provider Facility CPT-93810 Level 3 Est. Patient 18:25:53 CDT Mitch luis [facility] CPT-23440 Level 3 Est. Patient 19:43:34 CDT Mitch Castellano [facility] CPT-03645 Level 4 Est. Patient 09:30:18 CDT Mitch luis [facility] CPT-00808 Level 3 Est. Patient 15:10:14 CDT Joe kamara [facility] CPT-53200 Level 3 Est. Patient 15:03:46 CDT Joe kamara [facility] CPT-64969 Level 3 Est. Patient 14:21:06 CDT Mitch luis [facility] CPT-48131 Level 3 Est. Patient 14:52:06 [facility] Patient 09:34:30 PROTOCOL OFFICER Mitch Ambrose L janelle [facility]-39337 Level 3 Est. Patient 09:37:15 CDT Imtch W L janelle [facility]-07529 Level 3 Est. Patient 17:01:00 PROTOCOL OFFICER Mitch W L janelle [facility] CPT-67057 Level 3 Est. Patient 13:53:19 PROTOCOL OFFICER Mitch W L janelle [facility] CPT-39382 Level 3 Est. Patient 19:19:37 PROTOCOL OFFICER Mitch W L janelle [facility] CPT-33355 Level 3 Est. Patient 13:25:53 PROTOCOL OFFICER Tavo toure MD [facility]-87372 Level 3 Est. Patient 18:17:28 CDT Mitch Ambrose L janelle [facility] CPT-51415 Level 3 Est. Patient 15:22:57 CDT Mitch W L janelle [facility]-33204 Level 3 Est. Patient 18:21:50 CDT Mitch W L janelle [facility] CPT-83913 Level 3 Est. Patient 18:20:38 CDT Mitch Arnlo L janelle [facility]-31101 Level 3 Est. Patient 15:37:55 CDT Mitch W L janelle [facility] CPT-66251 Level 2 Est. Patient 15:54:44 CDT Carmine benton MD [facility]-91408 Level 3 Est. Patient 21:46:01 PROTOCOL OFFICER Mitch W L janelle [facility] CPT-41259 Level 3 Est. Patient 22:15:50 CDT Mitch W L ee [facility] CPT-52816 Level 3 Est. Patient 10:48:15 CDT Mitch luis [facility] CPT-70170 Level 3 Est. Patient 23:20:57 CDT Tavo toure MD [facility] CPT-62745 Level 3 Est. Patient 16:26:13 CDT Mitch luis [facility] Procedures Code Procedure Name Date Entry Date Standard Desc ription CPT-JTINJ Asp/Joint Injection 18:47:02 CDT CPT-25975 Venipuncture Draw Fee 09:26:17 CDT CPT-73388 PT/INR - LAB USE ONLY 13:32:49 PROTOCOL OFFICER CPT-23049 Venipuncture Draw Fee 13:32:49 PROTOCOL OFFICER CPT-92724 PT/INR - LAB USE ONLY 10:34:49 PROTOCOL OFFICER CPT-39524 Venipuncture Draw Fee 10:34:48 PROTOCOL OFFICER CPT-34456 PT/INR - LAB USE ONLY 09:22:03 PROTOCOL OFFICER CPT-17880 Venipuncture Draw Fee 09:22:02 PROTOCOL OFFICER CPT-36423 Hemoccult IFOBT - LAB USE ONLY 10:27:22 CDT CPT-24909 Venipuncture Draw Fee 08:27:08 CDT CPT-30037 Liver Profile - LAB USE ONLY 08:27:07 CDT 2 CPT-40259 Microalbumin - LAB USE ONLY 08:27:07 CDT 20 25/05/09 CPT-06628 PT/INR - LAB USE ONLY 08:27:07 CDT CPT-99890 HGBA1C - LAB USE ONLY 08:27:07 CDT CPT-73618 CBC - LAB USE ONLY 08:27:07 CDT CPT-20190 Venipuncture Draw Fee 11:09:14 CDT CPT-43425 Venipuncture Draw Fee 08:32:21 PROTOCOL OFFICER CPT-81969 Venipuncture Draw Fee 09:38:56 PROTOCOL OFFICER CPT-31661 No Charge Offi Visit 21:36:07 CDT 1 CPT-70759 Venipuncture Draw Fee 10:13:28 PROTOCOL OFFICER CPT-82826 Venipuncture Draw Fee 08:31:11 CDT CPT-01712 Aspir/Inject Med Joint 18:17:28 CDT CPT-76408 Venipuncture Draw Fee 10:13:30 CDT CPT-64004 Venipuncture Draw Fee 08:31:43 PROTOCOL OFFICER CPT-JTINJ Joint Injection 18:34:50 CDT CPT-37099 Knee 3V 12:25:09 CDT CPT-83099 Venipuncture Draw Fee 12:15:57 CDT CPT-060 Medical Surveillance Exam 21:31:43 CDT 2011 CPT-72895 Venipuncture Draw Fee 08:32:05 PROTOCOL OFFICER CPT-OV Office Visit 18:19:06 CDT
--- OUTSIDE RECORDS SUMMARY | 2020-01-18 13:26 | XMS REPORT | Clinical Summary ---
[...] of vessel, [place] or graft EDEMA 782.3 Active Mitch Urbina [...] 1 tablet by mouth daily AMLODIPINE BESYLATE 60453694729 Active Mitch Urbina DO Active MECLIZINE HCL 25 MG TAB 1 po tid 3 days, then 1/2 tab tid 3 days MECLIZINE HCL 63872890525 No Longer Active Corey SEGURA Active ALLOPURINOL 300 MG TABS Take 1 tablet by mouth daily 2 ALLOPURINOL 03147413458 No Longer Active Corey SEGURA Activ e CLONIDINE HCL 0.1 MG TABS 1 po bid 7 days, then 1/2 tab po b id 7 days CLONIDINE HCL 37806970364 No Longer Active Corey SEGURA Active COUMADIN 5 MG TABS 1 tab PO daily WARFARIN SODIUM 53094414963 Active Mitch Urbina DO Active COUMADIN 4 MG TABS 1 tablet daily WARFARIN SODI UM 72771931564 No Longer Active Corey SEGURA Active POLYTRIM 25168-2.1 UNIT/ML-% SOLN 1 drop in affected e ye every 3 hours while awake x 7 days POLYMYXIN B-TRIMETHOPRIM 02052352602 N o Longer Active Corey SEGURA Active LOSARTAN POTASSIUM-HCTZ 100-12.5 MG TABS 1 by mouth da rocky for high blood pressure LOSARTAN POTASSIUM-HCTZ 08413535765 Active Stephy Urbina DO Active LISINOPRIL-HYDROCHLOROTHIAZIDE 20-12.5 MG TABS 1 tab by mouth da rocky LISINOPRIL-HYDROCHLOROTHIAZIDE 50767367525 No Longer Active Mitch luis DO Active LISINOPRIL 20 MG TABS 1 tab po at HS LISINOPRIL 07480162808 No Longer Active Mitch Urbina DO Active COUMADIN 5 MG TABS 1 by mouth every other day WARFARIN SODIUM 26428736493 No Longer Active Mitch Urbina DO Active COUMADIN 6 MG TABS 1 by mouth every other day WARFARIN SODIUM 89140113425 No Longer Active Mitch Urbina DO Active COLCRYS 0.6 MG TABS 1 tab qid prn gout COLCHICINE 20746056642 Active Corey SEGURA Active SIMVASTATIN 40 MG TABS 1 tab daily at bedtime S IMVASTATIN 65563501590 Active Mitch Urbina DO Active SIMVASTATIN 20 MG TABS 1 tab daily at bedtime S IMVASTATIN 47282839598 No Longer Active Mitch Urbina DO Active LOVENOX 100 MG/ML SC SOLN One injection twice a day 09/15/15 ENOXAPARIN SODIUM 31581507641 No Longer Active Carmine Navarrete ctive JANUVIA 50 MG TABS Take one by mouth daily DIEGO GLIPTIN PHOSPHATE 79674215988 Active Domi Rivera MA Active JANUVIA 100 MG TABS 1/2 by mouth every day DIEGO GLIPTIN PHOSPHATE 24510930956 No Longer Active Bijal Segal RN Active METFORMIN HCL 500 MG TABS 2 by mouth twice daily METFORMIN HCL 06201139518 Active Mitch Urbina DO Active GLIMEPIRIDE 4 MG TABS 1 tab po bid GLIMEPIRIDE 710806 92767 Active Mitch Urbina DO Active COLCRYS 0.6 MG TABS 1 po q 6 hours prn gout pain 03/02 COLCHICINE 79622849275 No Longer Active Camila Reese Active LISINOPRIL 5 MG TABS 1 by mouth every day LISIN OPRIL 29738538651 No Longer Active Nguyenmolly Perez Active KLOR-CON 20 MEQ PACK Take one by mouth daily 8 POTASSIUM CHLORIDE 74996598907 No Longer Active Nguyen Perez Active FUROSEMIDE 40 MG TABS 1 by mouth daily FUROSEMI DE 50094791061 No Longer Active Nguyen Perez Active PROVIGIL 200 MG TABS 1/2 tab po q day MODAFINIL 92510 561271 Active Mitch Urbina DO Active PROVIGIL 100 MG TABS Take one by mouth daily MO DAFINIL 98119970233 No Longer Active Mitch Urbina DO Active BACTRIM DS 800-160 MG TAB 1 tab by mouth twice daily 2 TRIMETHOPRIM-SULFAMETHOXAZOLE 28267453524 No Longer Active Renan Hays MD Active FAMOTIDINE 20 MG TABS by mouth twice a day FAMOTI DINE 09374317722 Active Mitch W Cralitos DO Active ADULT ASPIRIN LOW STRENGTH 81 MG TBDP 1 by mouth every daily ASPIRIN 69636611438 Active Mitch Urbina DO Active METOPROLOL TARTRATE 50 MG TABS 1 by mouth twice daily METOPROLOL TARTRATE 83951290532 Active Curly Coker MD Active BACTRIM DS 800-160 MG TAB 1 tab by mouth twice daily 2 BACTRIM DS 800-160 MG TAB TRIMETHOPRIM-SULFAMETHOXAZOLE Inac tive PROVIGIL 100 MG TABS Take one by mouth daily 4 PROVIGIL 100 MG TABS 772521 MODAFINIL Inactive FUROSEMIDE 40 MG TABS 1 by mouth daily FU ROSEMIDE 40 MG TABS 782614 FUROSEMIDE Inactive KLOR-CON 20 MEQ PACK Take one by mouth daily 8 KLOR-CON 20 MEQ PACK 561629 POTASSIUM CHLORIDE Inactive LISINOPRIL 5 MG TABS 1 by mouth every day LISINOPRIL 5 MG TABS 243640 LISINOPRIL Inactive COLCRYS 0.6 MG TABS 1 po q 6 hours prn gout pain 03/02 COLCRYS 0.6 MG TABS 018176 COLCHICINE Inactive JANUVIA 100 MG TABS 1/2 by mouth every day JANUVI A 100 MG TABS SITAGLIPTIN PHOSPHATE Inactive SIMVASTATIN 20 MG TABS 1 tab daily at bedtime SIMVASTATIN 20 MG TABS 750345 SIMVASTATIN Inactive COUMADIN 6 MG TABS 1 by mouth every other day COUMADIN 6 MG TABS 880169 WARFARIN SODIUM Inactive COUMADIN 5 MG TABS 1 by mouth every other day COUMADIN 5 MG TABS 303417 WARFARIN SODIUM Inactive LISINOPRIL 20 MG TABS 1 tab po at HS KOKI NOPRIL 20 MG TABS 796905 LISINOPRIL Inactive LISINOPRIL-HYDROCHLOROTHIAZIDE 20-12.5 MG TABS 1 tab by mouth da rocky LISINOPRIL-HYDROCHLOROTHIAZIDE 20-12.5 MG TABS 775110 LISINOPRIL-HYDROCHLOROTHIAZIDE Inactive POLYTRIM 85769-9.1 UNIT/ML-% SOLN 1 drop in affected e ye every 3 hours while awake x 7 days POLYTRIM 61921-8.1 UNIT/ML-% SOLN 84467 7 POLYMYXIN B-TRIMETHOPRIM Inactive COUMADIN 4 MG TABS 1 tablet daily COUMADIN 4 MG TABS 336658 WARFARIN SODIUM Inactive CLONIDINE HCL 0.1 MG TABS 1 po bid 7 days, then 1/2 tab po b id 7 days CLONIDINE HCL 0.1 MG TABS 973860 CLONIDINE HCL I nactive ALLOPURINOL 300 MG TABS Take 1 tablet by mouth daily 2 ALLOPURINOL 300 MG TABS 390130 ALLOPURINOL Inactive MECLIZINE HCL 25 MG TAB 1 po tid 3 days, then 1/2 tab tid 3 days MECLIZINE HCL 25 MG TAB 895673 MECLIZINE HCL Inactive LOVENOX 100 MG/ML SC SOLN One injection twice a day 09/15/15 LOVENOX 100 MG/ML SC SOLN 397521 ENOXAPARIN SODIUM Inactive Vital Signs Date Name [...] Description Lab Report: CBC W/DIFF - Hematology monocytes as percent of blood leukocytes 7.3 % 1.7-9.3 hematocrit, blood 39.5 % 41.0-53.0 mean corpuscular volume, RBC 82 fL 80-97 mean corpuscular hemoglobin, RBC 27.0 pg 27. 0-31.2 mean corpuscular hemoglobin concentration, RBC 33.0 G/DL % 31.8-35.4 red blood cell distribution width 17.2 % 11 .6-14.8 platelet count 283 10^3/MM^3 10*3/mm3 059-017 6530/03/27 lymphocytes as percent of blood leukocytes 19.7 % 20.5-51.1 erythrocyte (RBC) count 4.83 10^6/MM^3 10*6/mm3 4.69-6.1 3 hemoglobin, blood 13.0 g/dL 13.5-17.5 leukocyte count, blood 6.2 10^3/MM^3 10*3/mm3 4.6-10.2 neutrophils as percent of blood leukocytes 69.3 % 42.2-75.2 Lab Report: CBC, Comp. Metabolic Panel, Prostatic Specific Ag - Chemistry sodium, serum 141 mmol/L 830-622 5560/07/06 potassium, serum 4.4 mmol/L 3.5-5.2 chloride, serum [...] leukocyte count, blood 7.7 10^3/MM^3 10*3/mm3 4.6-10.2 mean corpuscular hemoglobin concentration, RBC 32.7 G/DL % 31.8-35.4 red blood cell distribution width 18.2 % 11 .6-14.8 platelet count 269 10^3/MM^3 10*3/mm3 066-281 4567/07/06 erythrocyte (RBC) count 4.60 10^6/MM^3 10*6/mm3 4.69-6.1 3 hemoglobin, blood 12.4 g/dL 13.5-17.5 hematocrit, blood 38.1 % 41.0-53.0 mean corpuscular volume, RBC 83 fL 80-97 mean corpuscular hemoglobin, RBC 27.0 pg 27. 0-31.2 Lab Report: Comp. Metabolic Panel, HGBA1 C, Lipid Panel - Chemistry sodium, serum 137 mmol/L 732-463 5297/11/14 carbon dioxide, venous blood 33.0 mmol/L 21.0-32 [...] 8.0 % 4.3-6.0 cholesterol, serum 130 mg/dL 634-592 8616/11/14 triglyceride, serum, fasting 288 mg/dL 30-200 HDL cholesterol, serum 33 mg/dL 32-96 LDL cholesterol, serum 39 mg/dL 0-130 chloride, serum 100 mmol/L 98-107 potassium, serum 4.4 mmol/L 3.5-5.2 Lab Report: Comp. Metabolic Panel, HGBA1 C, Lipid Panel, Prothrombin Time - Chemistry sodium, serum 136 mmol/L 242-352 5136/12/02 potassium, serum 4.4 mmol/L 3.5-5.2 chloride, serum [...] 7.6 % 4.3-6.0 cholesterol, serum 117 mg/dL 214-506 7175/12/02 triglyceride, serum, fasting 226 mg/dL 30-200 HDL [...] 7.0 % 4.3-6.0 cholesterol, serum 120 mg/dL 333-526 4567/07/06 triglyceride, serum, fasting 186 mg/dL 30-200 HDL [...] 1.0-3.5 Encounters Code Encounter Date Provider Facility CPT-77698 Level 3 Est. Patient 09:37:15 CDT Mitch luis [facility] CPT-13802 Level 3 Est. Patient 17:01:00 MAINTENANCE WORKER Mitch Ambrose L janelle [facility] CPT-03362 Level 3 Est. Patient 13:53:19 MAINTENANCE WORKER Mitch W L janelle DO [facility] CPT-66454 Level 3 Est. Patient 19:19:37 MAINTENANCE WORKER Mitch W L ee [facility] CPT-61849 Level 3 Est. Patient 13:25:53 MAINTENANCE WORKER Tavo toure MD [facility] CPT-95473 Level 3 Est. Patient 18:17:28 CDT Mitch W L janelle [facility] CPT-34473 Level 3 Est. Patient 15:22:57 CDT Mitch W L janelle [facility] CPT-53706 Level 3 Est. Patient 18:21:50 CDT Mitch W L ee [facility] CPT-48517 Level 3 Est. Patient 18:20:38 CDT Mitch W L ee [facility] CPT-19837 Level 3 Est. Patient 15:37:55 CDT Mitch W L ee [facility] CPT-74579 Level 2 Est. Patient 15:54:44 CDT Carmine benton MD [facility]-23919 Level 3 Est. Patient 21:46:01 MAINTENANCE WORKER Mitch W L ee [facility] CPT-47773 Level 3 Est. Patient 22:15:50 CDT Mitch W L ee [facility] CPT-20083 Level 3 Est. Patient 10:48:15 CDT Mitch W L ee [facility] CPT-26271 Level 3 Est. Patient 23:20:57 CDT Tavo toure MD [facility] CPT-87538 Level 3 Est. Patient 16:26:13 CDT Mitch luis [facility] Procedures Code Procedure Name Date Entry Date Standard Desc ription CPT-12666 No Charge Offi Visit 21:36:07 CDT 1 CPT-94742 Venipuncture Draw Fee 10:13:28 MAINTENANCE WORKER CPT-13770 Venipuncture Draw Fee 08:31:11 CDT CPT-61562 Aspir/Inject Med Joint 18:17:28 CDT CPT-49289 Venipuncture Draw Fee 10:13:30 CDT CPT-61390 Venipuncture Draw Fee 08:31:43 MAINTENANCE WORKER CPT-JTINJ Joint Injection 18:34:50 CDT CPT-32223 Knee 3V 12:25:09 CDT CPT-35310 Venipuncture Draw Fee 12:15:57 CDT CPT-060 Medical Surveillance Exam 21:31:43 CDT 2011 CPT-41265 Venipuncture Draw Fee 08:32:05 MAINTENANCE WORKER CPT-OV Office Visit 18:19:06 CDT
--- OUTSIDE RECORDS SUMMARY | 2020-01-18 13:26 | XMS REPORT | Clinical Summary ---
[...] perce or graft EDEMA 782.3 Active Mitch Urbina [...] 1 tablet by mouth daily AMLODIPINE BESYLATE 25754175737 Active Mitch Urbina DO Active MECLIZINE HCL 25 MG TAB 1 po tid 3 days, then 1/2 tab tid 3 days MECLIZINE HCL 58392367932 No Longer Active Corey SEGURA Active ALLOPURINOL 300 MG TABS Take 1 tablet by mouth daily 2 ALLOPURINOL 35394254769 No Longer Active Corey SEGURA Activ e CLONIDINE HCL 0.1 MG TABS 1 po bid 7 days, then 1/2 tab po b id 7 days CLONIDINE HCL 19924764989 No Longer Active Corey SEGURA Active COUMADIN 5 MG TABS 1 tab PO daily WARFARIN SODIUM 05042955810 Active Mitch Urbina DO Active COUMADIN 4 MG TABS 1 tablet daily WARFARIN SODI UM 10475632726 No Longer Active Corey SEGURA Active POLYTRIM 77359-3.1 UNIT/ML-% SOLN 1 drop in affected e ye every 3 hours while awake x 7 days POLYMYXIN B-TRIMETHOPRIM 14189315417 N o Longer Active Corey SEGURA Active LOSARTAN POTASSIUM-HCTZ 100-12.5 MG TABS 1 by mouth da [place] for high blood pressure LOSARTAN POTASSIUM-HCTZ 78797927090 Active Stephy Urbina DO Active LISINOPRIL-HYDROCHLOROTHIAZIDE 20-12.5 MG TABS 1 tab by mouth da rocky LISINOPRIL-HYDROCHLOROTHIAZIDE 39008454756 No Longer Active Mitch luis DO Active LISINOPRIL 20 MG TABS 1 tab po at HS LISINOPRIL 22320669822 No Longer Active Mitch Urbina DO Active COUMADIN 5 MG TABS 1 by mouth every other day WARFARIN SODIUM 20846003248 No Longer Active Mitch Urbina DO Active COUMADIN 6 MG TABS 1 by mouth every other day WARFARIN SODIUM 33228010873 No Longer Active Mitch Urbina DO Active COLCRYS 0.6 MG TABS 1 tab qid prn gout COLCHICINE 45544774184 Active Mitch Urbina DO Active SIMVASTATIN 40 MG TABS 1 tab daily at bedtime S IMVASTATIN 10483581788 Active Mitch Urbina DO Active SIMVASTATIN 20 MG TABS 1 tab daily at bedtime S IMVASTATIN 66812635812 No Longer Active Mitch Urbina DO Active LOVENOX 100 MG/ML SC SOLN One injection twice a day 09/15/15 ENOXAPARIN SODIUM 48879507857 No Longer Active Carmine Naavrrete ctive JANUVIA 50 MG TABS Take one by mouth daily DIEGO GLIPTIN PHOSPHATE 74977728667 Active Mitch Urbina DO Active JANUVIA 100 MG TABS 1/2 by mouth every day DIEGO GLIPTIN PHOSPHATE 97865729561 No Longer Active Bijal Philipp RN Active METFORMIN HCL 500 MG TABS 2 by mouth twice daily METFORMIN HCL 83792587711 Active Mitch Urbina DO Active GLIMEPIRIDE 4 MG TABS 1 tab po bid GLIMEPIRIDE 156760 11948 Active Mitch Urbina DO Active COLCRYS 0.6 MG TABS 1 po q 6 hours prn gout pain 03/02 COLCHICINE 50424199762 No Longer Active Camila Reese Active LISINOPRIL 5 MG TABS 1 by mouth every day LISIN OPRIL 37590572140 No Longer Active Nguyen Perez Active KLOR-CON 20 MEQ PACK Take one by mouth daily 8 POTASSIUM CHLORIDE 55685470969 No Longer Active Nguyen Perez Active FUROSEMIDE 40 MG TABS 1 by mouth daily FUROSEMI DE 60336656963 No Longer Active Nguyen Perez Active PROVIGIL 200 MG TABS 1/2 tab po q day MODAFINIL 47006 393120 Active Mitch Urbina DO Active PROVIGIL 100 MG TABS Take one by mouth daily MO DAFINIL 13080412545 No Longer Active Mitch Urbina DO Active BACTRIM DS 800-160 MG TAB 1 tab by mouth twice daily 2 TRIMETHOPRIM-SULFAMETHOXAZOLE 55583590278 No Longer Active Renan Hays MD Active FAMOTIDINE 20 MG TABS by mouth twice a day FAMOTI DINE 49115119357 Active Mitch Urbina DO Active ADULT ASPIRIN LOW STRENGTH 81 MG TBDP 1 by mouth every daily ASPIRIN 62417703606 Active Mitch Urbina DO Active METOPROLOL TARTRATE 50 MG TABS 1 by mouth twice daily METOPROLOL TARTRATE 78875020816 Active Mitch W Carlitos DO Active BACTRIM DS 800-160 MG TAB 1 tab by mouth twice daily 2 BACTRIM DS 800-160 MG TAB TRIMETHOPRIM-SULFAMETHOXAZOLE Inac tive PROVIGIL 100 MG TABS Take one by mouth daily 4 PROVIGIL 100 MG TABS 535264 MODAFINIL Inactive FUROSEMIDE 40 MG TABS 1 by mouth daily FU ROSEMIDE 40 MG TABS 121240 FUROSEMIDE Inactive KLOR-CON 20 MEQ PACK Take one by mouth daily 8 KLOR-CON 20 MEQ PACK 730854 POTASSIUM CHLORIDE Inactive LISINOPRIL 5 MG TABS 1 by mouth every day LISINOPRIL 5 MG TABS 626374 LISINOPRIL Inactive COLCRYS 0.6 MG TABS 1 po q 6 hours prn gout pain 03/02 COLCRYS 0.6 MG TABS COLCHICINE Inactive JANUVIA 100 MG TABS 1/2 by mouth every day JANUVI A 100 MG TABS SITAGLIPTIN PHOSPHATE Inactive SIMVASTATIN 20 MG TABS 1 tab daily at bedtime SIMVASTATIN 20 MG TABS 270273 SIMVASTATIN Inactive COUMADIN 6 MG TABS 1 by mouth every other day COUMADIN 6 MG TABS 386596 WARFARIN SODIUM Inactive COUMADIN 5 MG TABS 1 by mouth every other day COUMADIN 5 MG TABS 637116 WARFARIN SODIUM Inactive LISINOPRIL 20 MG TABS 1 tab po at HS KOKI NOPRIL 20 MG TABS 040241 LISINOPRIL Inactive LISINOPRIL-HYDROCHLOROTHIAZIDE 20-12.5 MG TABS 1 tab by mouth da rocky LISINOPRIL-HYDROCHLOROTHIAZIDE 20-12.5 MG TABS 018023 LISINOPRIL-HYDROCHLOROTHIAZIDE Inactive POLYTRIM 79832-6.1 UNIT/ML-% SOLN 1 drop in affected e ye every 3 hours while awake x 7 days POLYTRIM 92574-3.1 UNIT/ML-% SOLN 17369 7 POLYMYXIN B-TRIMETHOPRIM Inactive COUMADIN 4 MG TABS 1 tablet daily COUMADIN 4 MG TABS 333464 WARFARIN SODIUM Inactive CLONIDINE HCL 0.1 MG TABS 1 po bid 7 days, then 1/2 tab po b id 7 days CLONIDINE HCL 0.1 MG TABS 702604 CLONIDINE HCL I nactive ALLOPURINOL 300 MG TABS Take 1 tablet by mouth daily 2 ALLOPURINOL 300 MG TABS 906462 ALLOPURINOL Inactive MECLIZINE HCL 25 MG TAB 1 po tid 3 days, then 1/2 tab tid 3 days MECLIZINE HCL 25 MG TAB 463761 MECLIZINE HCL Inactive LOVENOX 100 MG/ML SC SOLN One injection twice a day 09/15/15 LOVENOX 100 MG/ML SC SOLN 948938 ENOXAPARIN SODIUM Inactive Vital Signs Date Name [...] 10.3 mg/dL 2.6-7.2 sodium, serum 136 mmol/L 256-503 9036/07/25 potassium, serum 4.6 mmol/L 3.5-5.2 chloride, serum [...] - Chemistry potassium, serum 4.4 mmol/L 3.5-5.2 sodium, serum 137 mmol/L 709-533 6929/11/14 chloride, serum 100 mmol/L 98-107 carbon dioxide, [...] 8.0 % 4.3-6.0 cholesterol, serum 130 mg/dL 980-994 4318/11/14 triglyceride, serum, fasting 288 mg/dL 30-200 HDL cholesterol, serum 33 mg/dL 32-96 LDL cholesterol, serum 39 mg/dL 0-130 Lab Report: Comp. Metabolic Panel, HGBA1 C, Lipid Panel, Prothrombin Time - Chemistry sodium, serum 136 mmol/L 527-385 4580/12/02 potassium, serum 4.4 mmol/L 3.5-5.2 chloride, serum [...] 7.6 % 4.3-6.0 cholesterol, serum 117 mg/dL 905-212 3266/12/02 triglyceride, serum, fasting 226 mg/dL 30-200 HDL [...] 1.0-3.5 international normalized ratio (INR) 2.2 1.0-3.5 Encounters Code Encounter Date Provider Facility CPT-42742 Level 3 Est. Patient 17:01:00 BIOLOGY INSTRUCTOR Mitch luis DO [facility] CPT-82695 Level 3 Est. Patient 13:53:19 BIOLOGY INSTRUCTOR Mitch Arnol L janelle [facility] [place] CPT-14053 Level 3 Est. Patient 19:19:37 BIOLOGY INSTRUCTOR Mitch W L janelle [facility] CPT-26480 Level 3 Est. Patient 13:25:53 BIOLOGY INSTRUCTOR Tavo toure MD [facility]-42407 Level 3 Est. Patient 18:17:28 CDT Mitch Ambrose L janelle [facility] CPT-43520 Level 3 Est. Patient 15:22:57 CDT Mitch W L [facility] CPT-83388 Level 3 Est. Patient 18:21:50 CDT Mitch W L janelle [facility]-60997 Level 3 Est. Patient 18:20:38 CDT Mitch Arnol L janelle [facility]-73623 Level 3 Est. Patient 15:37:55 CDT Mitch W L janelle [facility] CPT-98134 Level 2 Est. Patient 15:54:44 CDT Carmine benton MD [facility]-60161 Level 3 Est. Patient 21:46:01 BIOLOGY INSTRUCTOR Mitch luis [facility] CPT-78115 Level 3 Est. Patient 22:15:50 CDT Mitch W L janelle [facility] CPT-24550 Level 3 Est. Patient 10:48:15 CDT Mitch W L ee [facility] CPT-12585 Level 3 Est. Patient 23:20:57 CDT Tavo toure MD [facility] CPT-16418 Level 3 Est. Patient 16:26:13 CDT Mitch luis DO [facility] Procedures Code Procedure Name Date Entry Date Standard Desc ription CPT-19114 Venipuncture Draw Fee 10:13:28 BIOLOGY INSTRUCTOR CPT-14457 Venipuncture Draw Fee 08:31:11 CDT CPT-30238 Aspir/Inject Med Joint 18:17:28 CDT CPT-59286 Venipuncture Draw Fee 10:13:30 CDT CPT-81768 Venipuncture Draw Fee 08:31:43 BIOLOGY INSTRUCTOR CPT-JTINJ Joint Injection 18:34:50 CDT CPT-54058 Knee 3V 12:25:09 CDT CPT-03782 Venipuncture Draw Fee 12:15:57 CDT CPT-060 Medical Surveillance Exam 21:31:43 CDT 2011 CPT-25176 Venipuncture Draw Fee 08:32:05 BIOLOGY INSTRUCTOR CPT-OV Office Visit 18:19:06 CDT
--- OUTSIDE RECORDS SUMMARY | 2020-01-18 13:26 | XMS REPORT | Clinical Summary ---
Author Author Admin, Mitch Leon Organization [facility] Address Unknown Phone Unavailable Allergies, Adverse [...] Coronary atherosclerosis of unspecified type of vessel, [place] or graft EDEMA 782.3 Resolved Mitch [...] Sebaceous cyst, infected 706.2 Resolved Mitch W Cariltos DO Sebaceous cyst Cellulitis 682.9 Resolved Mitch [...] Mitch Meraz DO BRUISE ICD-924.9 Inactive Mitch Urbnia DO [...] ORAL TABLET 1 po BID GLIMEPIRID E 52428338794 Active Renee Oconnor LPN Active KEFLEX 500 MG ORAL CAPSULE 1 po qid CEPHALEXI N 66726833041 No Longer Active Mitch Urbina DO Active LOSARTAN POTASSIUM 100 MG ORAL TABLET 1 pill by mouth daily, for blood pressure LOSARTAN POTASSIUM 59019520250 Active Ana Wallace Active AMLODIPINE BESYLATE 5 MG ORAL TABLET 1 tablet by mouth daily 201 01/20/04 AMLODIPINE BESYLATE 34552341678 No Longer Active Joe fulton APRN Active MITIGARE 0.6 MG ORAL CAPSULE 2 capsules at onset of go ut pain, then take one capsule at 1 hour if symptoms persist. COLCHICINE 59 433972356 Active Mitch Urbina DO Active COUMADIN 1 MG ORAL TABLET 2 tabs orally daily with the 5mg tab to equal 7mg daily WARFARIN SODIUM 40635070730 Active Ana Wallace Active COLCRYS 0.6 MG ORAL TABLET 1 tab qid prn gout C OLCHICINE 52918190522 Active Norma Cazares Active INVOKANA 100 MG ORAL TABLET 1 tablet orally daily CANAGLIFLOZIN 67040397298 Active Mitch Urbina DO Active MINOXIDIL 2.5 MG ORAL TABLET 1 tablet daily for high blood press ure MINOXIDIL 50376081690 Active Mitch Urbina DO Active MECLIZINE HCL 25 MG ORAL TABLET 1 po tid 3 days, then 1/2 ta b tid 3 days MECLIZINE HCL 96403719675 No Longer Active Corey SEGURA Active ALLOPURINOL 300 MG ORAL TABLET Take 1 tablet by mouth daily 2012 ALLOPURINOL 35510696965 No Longer Active Corey SEGURA Active CLONIDINE HCL 0.1 MG ORAL TABLET 1 po bid 7 days, then 1/2 t ab po bid 7 days CLONIDINE HCL 53129930159 No Longer Active Corey SEGURA Active COUMADIN 5 MG ORAL TABLET 1 tab PO daily WARFAR IN SODIUM 97260200355 Active Mitch Urbina DO Active COUMADIN 4 MG ORAL TABLET 1 tablet daily WARFAR IN SODIUM 46253171204 No Longer Active Corey SEGURA Active POLYTRIM 18670-3.1 UNIT/ML-% OPHTHALMIC SOLUTION 1 rui p in affected eye every 3 hours while awake x 7 days POLYMYXIN B-TRIMETHOP RIM 90250628455 No Longer Active Corey SEGURA Active LOSARTAN POTASSIUM-HCTZ 100-12.5 MG ORAL TABLET 1 by m outh daily for high blood pressure LOSARTAN POTASSIUM-HCTZ 09828235305 No Longer A ctive Mitch Urbina DO Active LISINOPRIL-HYDROCHLOROTHIAZIDE 20-12.5 MG ORAL TABLET 1 tab by m outh daily LISINOPRIL-HYDROCHLOROTHIAZIDE 41272485419 No Longer Active Mitch Urbina DO Active LISINOPRIL 20 MG ORAL TABLET 1 tab po at HS LIS INOPRIL 13795775908 No Longer Active Mitch Urbina DO Active COUMADIN 5 MG ORAL TABLET 1 by mouth every other day 2 WARFARIN SODIUM 28156503008 No Longer Active Mitch Urbina DO Active COUMADIN 6 MG ORAL TABLET 1 by mouth every other day 2 WARFARIN SODIUM 49330858348 No Longer Active Mitch Urbina DO Active SIMVASTATIN 40 MG ORAL TABLET 1 tab daily at bedtime SIMVASTATIN 24856510347 Active Mitch Urbina DO Active SIMVASTATIN 20 MG ORAL TABLET 1 tab daily at bedtime 2 SIMVASTATIN 46294129484 No Longer Active Mitch Urbina DO Active LOVENOX 100 MG/ML SUBCUTANEOUS SOLUTION One injection twice a da y ENOXAPARIN SODIUM 02885055468 No Longer Active Carmine Yusuf MD Active JANUVIA 50 MG ORAL TABLET Take one by mouth daily SITAGLIPTIN PHOSPHATE 55907837843 Active Mitch Urbina DO Active JANUVIA 100 MG ORAL TABLET 1/2 by mouth every day 2011 SITAGLIPTIN PHOSPHATE 86124979958 No Longer Active Bijal Segal RN Acti ve METFORMIN HCL 500 MG ORAL TABLET 2 by mouth twice daily METFORMIN HCL 39180813758 Active Mitch Urbina DO Active COLCRYS 0.6 MG ORAL TABLET 1 po q 6 hours prn gout pain COLCHICINE 58023346589 No Longer Active Camila Reese Active LISINOPRIL 5 MG ORAL TABLET 1 by mouth every day 11/17 LISINOPRIL 72228706115 No Longer Active Nguyen Coekman Active KLOR-CON 20 MEQ ORAL PACKET Take one by mouth daily 09/10/08 POTASSIUM CHLORIDE 57076508288 No Longer Active Nguyen Coekman Active FUROSEMIDE 40 MG ORAL TABLET 1 by mouth daily F UROSEMIDE 61755241016 No Longer Active Nguyen Ana Active PROVIGIL 200 MG ORAL TABLET 1/2 tab po q day MODA FINIL 10482562999 Active Renee Oconnor [employer]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 PROVIGIL 100 MG ORAL TABLET Take one by mouth daily 08/20/04 MODAFINIL 41614741096 No Longer Active Mitch Urbina DO Active BACTRIM DS 800-160 MG ORAL TABLET 1 tab by mouth twice daily 201 10/19/09 TRIMETHOPRIM-SULFAMETHOXAZOLE 48511142663 No Longer Active Elian Hays MD Active FAMOTIDINE 20 MG ORAL TABLET by mouth twice a day FAMOTIDINE 45366913677 Active Mitch Urbina DO Active ADULT ASPIRIN LOW STRENGTH 81 MG ORAL TABLET DISINTEGR ATING 1 by mouth every daily ASPIRIN 39365365577 Active Mitch Urbina DO Ac tive METOPROLOL TARTRATE 50 MG ORAL TABLET 1 by mouth twice daily METOPROLOL TARTRATE 58920763466 Active Mitch Urbina DO Active BACTRIM DS 800-160 MG ORAL TABLET 1 tab by mouth twice daily 201 10/19/09 BACTRIM DS 800-160 MG ORAL TABLET 201021 TRIMETHOPRIM-SULFAMETHOXAZOLE Inactive PROVIGIL 100 MG ORAL TABLET Take one by mouth daily 08/20/04 PROVIGIL 100 MG ORAL TABLET 836902 MODAFINIL Inactive FUROSEMIDE 40 MG ORAL TABLET 1 by mouth daily FUROSEMIDE 40 MG ORAL TABLET 988852 FUROSEMIDE Inactive KLOR-CON 20 MEQ ORAL PACKET Take one by mouth daily 09/10/08 KLOR- CON 20 MEQ ORAL PACKET 8759610 POTASSIUM CHLORIDE Inactive LISINOPRIL 5 MG ORAL TABLET 1 by mouth every day 11/17 LISINOPRIL 5 MG ORAL TABLET 602059 LISINOPRIL Inactive COLCRYS 0.6 MG ORAL TABLET 1 po q 6 hours prn gout pain COLCRYS 0.6 MG ORAL TABLET 795494 COLCHICINE Inactive JANUVIA 100 MG ORAL TABLET 1/2 by mouth every day 2011 JANUVIA 100 MG ORAL TABLET SITAGLIPTIN PHOSPHATE Inactive SIMVASTATIN 20 MG ORAL TABLET 1 tab daily at bedtime 2 SIMVASTATIN 20 MG ORAL TABLET 644698 SIMVASTATIN Inactive COUMADIN 6 MG ORAL TABLET 1 by mouth every other day 2 COUMADIN 6 MG ORAL TABLET 985301 WARFARIN SODIUM Inactive COUMADIN 5 MG ORAL TABLET 1 by mouth every other day 2 COUMADIN 5 MG ORAL TABLET 326051 WARFARIN SODIUM Inactive LISINOPRIL 20 MG ORAL TABLET 1 tab po at HS LISINOPRIL 20 MG ORAL TABLET 681686 LISINOPRIL Inactive LISINOPRIL-HYDROCHLOROTHIAZIDE 20-12.5 MG ORAL TABLET 1 tab by m outh daily LISINOPRIL-HYDROCHLOROTHIAZIDE 20-12.5 MG ORAL TABLET 384607 LISINOPRIL-HYDROCHLOROTHIAZIDE Inactive POLYTRIM 02534-1.1 UNIT/ML-% OPHTHALMIC SOLUTION 1 rui p in affected eye every 3 hours while awake x 7 days POLYTRIM 1000 0-0.1 UNIT/ML-% OPHTHALMIC SOLUTION 136200 POLYMYXIN B-TRIMETHOPRIM Inactive COUMADIN 4 MG ORAL TABLET 1 tablet daily COUMADIN 4 MG ORAL TABLET 211618 WARFARIN SODIUM Inactive CLONIDINE HCL 0.1 MG ORAL TABLET 1 po bid 7 days, then 1/2 t ab po bid 7 days CLONIDINE HCL 0.1 MG ORAL TABLET 638759 CLONIDIN E HCL Inactive ALLOPURINOL 300 MG ORAL TABLET Take 1 tablet by mouth daily 2012 ALLOPURINOL 300 MG ORAL TABLET 631701 ALLOPURINOL I nactive MECLIZINE HCL 25 MG ORAL TABLET 1 po tid 3 days, then 1/2 ta b tid 3 days MECLIZINE HCL 25 MG ORAL TABLET 763594 MECLIZINE HCL Inactive AMLODIPINE BESYLATE 5 MG ORAL TABLET 1 tablet by mouth daily 201 01/20/04 AMLODIPINE BESYLATE 5 MG ORAL TABLET 517802 AMLODIPINE BESYLATE Inactive KEFLEX 500 MG ORAL CAPSULE 1 po qid K EFLEX 500 MG ORAL CAPSULE 462818 CEPHALEXIN Inactive LOVENOX 100 MG/ML SUBCUTANEOUS SOLUTION One injection twice a da y LOVENOX 100 MG/ML SUBCUTANEOUS SOLUTION 249549 ENOXAPAR IN SODIUM Inactive Vital Signs Date [...] - Chem istry sodium, serum 139 mmol/L 183-842 5380/07/17 potassium, serum 4.2 mmol/L 3.5-5.2 chloride, serum 102 mmol/L 98-107 carbon dioxide, venous blood 28.9 mmol/L 21.0-32 .0 blood glucose 211 mg/dL 65-110 calcium, serum 10.6 mg/dL 8.5-10.1 urea nitrogen, blood 29 mg/dL 7-18 creatinine, serum 1.24 mg/dL 0.60-1.30 sodium, serum 141 mmol/L 719-427 6538/08/07 potassium, serum 4.5 mmol/L 3.5-5.2 chloride, serum [...] ... - Chemistry sodium, serum 144 mmol/L 361-934 7868/06/12 carbon dioxide, venous blood 26.6 mmol/L 21.0-32 [...] HGBA1C - Chemistry cholesterol, serum 136 mg/dL 293-264 5519/12/06 triglyceride, serum, fasting 247 mg/dL 30-200 HDL cholesterol, serum 41 mg/dL 32-60 LDL cholesterol, serum 46 mg/dL 0-130 aspartate aminotransferase (SGOT), serum 22 U/L 15-37 alanine aminotransferase (SGPT), serum 30 U/L 12-78 bilirubin, serum, total 0.80 mg/dL 0.00-1.00 hemoglobin A1C, blood, as % of total hemoglobin 6.4 % 4.3-6.0 Encounters Code Encounter Date Provider Facility CPT-36114 Level 3 Est. Patient 18:25:53 CDT Mitch luis [facility] CPT-04719 Level 3 Est. Patient 19:43:34 CDT Mitch luis [facility] CPT-79625 Level 4 Est. Patient 09:30:18 CDT Mitch luis [facility] CPT-85883 Level 3 Est. Patient 15:10:14 CDT Joe kamara [facility] CPT-26086 Level 3 Est. Patient 15:03:46 CDT Joe kamara [facility] CPT-31652 Level 3 Est. Patient 14:21:06 CDT Mitch luis [facility] CPT-92863 Level 3 Est. Patient 14:52:06 CDT Joe kamara [facility] CPT-86755 Level 3 Est. Patient 09:34:30 ASSOCIATE RESEARCH SCIENTIST Mitch luis [facility] CPT-97618 Level 3 Est. Patient 09:37:15 CDT Mitch luis [facility] CPT-03696 Level 3 Est. Patient 17:01:00 ASSOCIATE RESEARCH SCIENTIST Mitch luis [facility] CPT-01477 Level 3 Est. Patient 13:53:19 ASSOCIATE RESEARCH SCIENTIST Mitch luis [facility] CPT-17664 Level 3 Est. Patient 19:19:37 ASSOCIATE RESEARCH SCIENTIST Mitch luis [facility] CPT-82289 Level 3 Est. Patient 13:25:53 ASSOCIATE RESEARCH SCIENTIST Tavo toure MD [facility] CPT-95182 Level 3 Est. Patient 18:17:28 CDT Mitch luis [facility] CPT-77977 Level 3 Est. Patient 15:22:57 CDT Mitch luis [facility] CPT-41992 Level 3 Est. Patient 18:21:50 CDT Mitch luis [facility] CPT-00631 Level 3 Est. Patient 18:20:38 CDT Mitch luis [facility] CPT-50321 Level 3 Est. Patient 15:37:55 CDT Mitch luis [facility] CPT-81731 Level 2 Est. Patient 15:54:44 CDT Carmine benton MD [facility] CPT-18888 Level 3 Est. Patient 21:46:01 ASSOCIATE RESEARCH SCIENTIST Mitch luis [facility] CPT-89570 Level 3 Est. Patient 22:15:50 CDT Mitch luis [facility] CPT-91621 Level 3 Est. Patient 10:48:15 CDT Mitch luis [facility] CPT-82035 Level 3 Est. Patient 23:20:57 CDT Tavo toure MD [facility] CPT-71587 Level 3 Est. Patient 16:26:13 CDT Mitch Arnol Nona janelle [facility] Procedures Code Procedure Name Date Entry Date Standard Desc ription CPT-90898 Venipuncture Draw Fee 09:26:17 CDT CPT-44241 PT/INR - LAB USE ONLY 13:32:49 ASSOCIATE RESEARCH SCIENTIST CPT-42947 Venipuncture Draw Fee 13:32:49 ASSOCIATE RESEARCH SCIENTIST CPT-00278 PT/INR - LAB USE ONLY 10:34:49 ASSOCIATE RESEARCH SCIENTIST CPT-43118 Venipuncture Draw Fee 10:34:48 ASSOCIATE RESEARCH SCIENTIST CPT-17872 PT/INR - LAB USE ONLY 09:22:03 ASSOCIATE RESEARCH SCIENTIST CPT-22851 Venipuncture Draw Fee 09:22:02 ASSOCIATE RESEARCH SCIENTIST CPT-43067 Hemoccult IFOBT - LAB USE ONLY 10:27:22 CDT CPT-64365 Venipuncture Draw Fee 08:27:08 CDT CPT-93984 Liver Profile - LAB USE ONLY 08:27:07 CDT 2 CPT-54934 Microalbumin - LAB USE ONLY 08:27:07 CDT 20 25/05/09 CPT-10836 PT/INR - LAB USE ONLY 08:27:07 CDT CPT-70042 HGBA1C - LAB USE ONLY 08:27:07 CDT CPT-86541 CBC - LAB USE ONLY 08:27:07 CDT CPT-88573 Venipuncture Draw Fee 11:09:14 CDT CPT-93725 Venipuncture Draw Fee 08:32:21 ASSOCIATE RESEARCH SCIENTIST CPT-68181 Venipuncture Draw Fee 09:38:56 ASSOCIATE RESEARCH SCIENTIST CPT-66800 No Charge Offi Visit 21:36:07 CDT 1 CPT-23055 Venipuncture Draw Fee 10:13:28 ASSOCIATE RESEARCH SCIENTIST CPT-21419 Venipuncture Draw Fee 08:31:11 CDT CPT-97054 Aspir/Inject Med Joint 18:17:28 CDT CPT-49251 Venipuncture Draw Fee 10:13:30 CDT CPT-73836 Venipuncture Draw Fee 08:31:43 ASSOCIATE RESEARCH SCIENTIST CPT-JTINJ Joint Injection 18:34:50 CDT CPT-01299 Knee 3V 12:25:09 CDT CPT-44818 Venipuncture Draw Fee 12:15:57 CDT CPT-060 Medical Surveillance Exam 21:31:43 CDT 2011 CPT-93533 Venipuncture Draw Fee 08:32:05 ASSOCIATE RESEARCH SCIENTIST CPT-OV Office Visit 18:19:06 CDT
--- OUTSIDE RECORDS SUMMARY | 2020-01-18 13:27 | XMS REPORT | Clinical Summary ---
Author Author Admin, Mitch Leon Organization [facility] Address Unknown Phone Unavailable Allergies, Adverse [...] DISEASE, KNEES, 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 3 Active Mitch Arnlo Urbina DO Osteoarthrosis, unsp ecified whether generalized [...] 1 hour if symptoms persist. COLCHICINE 59 119090104 Active Mitch Urbina DO Active COUMADIN 1 MG TAB 2 tabs orally daily with the 5mg tab to equal 7mg daily WARFARIN SODIUM 76118824049 Active Norma Cazares Active COLCRYS 0.6 MG TABS 1 tab qid prn gout COLCHICINE 17172349494 Active Norma Cazares Active INVOKANA 100 MG ORAL TABS 1 tablet orally daily CANAGLIFLOZIN 54190677071 Active Mitch Urbina DO Active MINOXIDIL 2.5 MG TABS 1 tablet daily for high blood pressure 10/23 MINOXIDIL 39423248332 Active Domi Rivera MA Active AMLODIPINE BESYLATE 5 MG TABS 1 tablet by mouth daily AMLODIPINE BESYLATE 47498802102 Active Mitch Urbina DO Active MECLIZINE HCL 25 MG TAB 1 po tid 3 days, then 1/2 tab tid 3 days MECLIZINE HCL 36844737556 No Longer Active Corey SEGURA Active ALLOPURINOL 300 MG TABS Take 1 tablet by mouth daily 2 ALLOPURINOL 03530723532 No Longer Active Corey SEGURA Activ e CLONIDINE HCL 0.1 MG TABS 1 po bid 7 days, then 1/2 tab po b id 7 days CLONIDINE HCL 59007799989 No Longer Active Corey SEGURA Active COUMADIN 5 MG TABS 1 tab PO daily WARFARIN SODIUM 09546204101 Active Mitch Urbina DO Active COUMADIN 4 MG TABS 1 tablet daily WARFARIN SODI UM 69427299341 No Longer Active Corey SEGURA Active POLYTRIM 28239-8.1 UNIT/ML-% SOLN 1 drop in affected e ye every 3 hours while awake x 7 days POLYMYXIN B-TRIMETHOPRIM 02551422996 N o Longer Active Corey SEGURA Active LOSARTAN POTASSIUM-HCTZ 100-12.5 MG TABS 1 by mouth da rocky for high blood pressure LOSARTAN POTASSIUM-HCTZ 23193423192 Active Stephy Urbina DO Active LISINOPRIL-HYDROCHLOROTHIAZIDE 20-12.5 MG TABS 1 tab by mouth da rocky LISINOPRIL-HYDROCHLOROTHIAZIDE 32473601096 No Longer Active Mitch luis DO Active LISINOPRIL 20 MG TABS 1 tab po at HS LISINOPRIL 75419599010 No Longer Active Mitch Urbina DO Active COUMADIN 5 MG TABS 1 by mouth every other day WARFARIN SODIUM 52173169735 No Longer Active Mitch Urbina DO Active COUMADIN 6 MG TABS 1 by mouth every other day WARFARIN SODIUM 96141854011 No Longer Active Mitch Urbina DO Active SIMVASTATIN 40 MG TABS 1 tab daily at bedtime S IMVASTATIN 33468273340 Active Mitch Urbina DO Active SIMVASTATIN 20 MG TABS 1 tab daily at bedtime S IMVASTATIN 73903672137 No Longer Active Mitch Urbina DO Active LOVENOX 100 MG/ML SC SOLN One injection twice a day 09/15/15 ENOXAPARIN SODIUM 78079487194 No Longer Active Carmine Navarrete ctive JANUVIA 50 MG TABS Take one by mouth daily DIEGO GLIPTIN PHOSPHATE 84233881783 Active Mitch Urbina DO Active JANUVIA 100 MG TABS 1/2 by mouth every day DIEGO GLIPTIN PHOSPHATE 14401631922 No Longer Active Bijal Segal RN Active METFORMIN HCL 500 MG TABS 2 by mouth twice daily METFORMIN HCL 29983013585 Active Mitch Urbina DO Active GLIMEPIRIDE 4 MG TABS 1 tab po bid GLIMEPIRIDE 607990 88842 Active Mitch Arnol Carlitos DO Active COLCRYS 0.6 MG TABS 1 po q 6 hours prn gout pain 03/02 COLCHICINE 99537582353 No Longer Active Camila Reese Active LISINOPRIL 5 MG TABS 1 by mouth every day LISIN OPRIL 06157926804 No Longer Active Nguyen Perez Active KLOR-CON 20 MEQ PACK Take one by mouth daily 8 POTASSIUM CHLORIDE 16759459726 No Longer Active Nguyenmolly Perez Active FUROSEMIDE 40 MG TABS 1 by mouth daily FUROSEMI DE 81383429462 No Longer Active Nguyen Perez Active PROVIGIL 200 MG TABS 1/2 tab po q day MODAFINIL 82414 512654 Active Kathie Juan RPT,RMA Active PROVIGIL 100 MG TABS Take one by mouth daily MO DAFINIL 97133147768 No Longer Active Mitch Urbina DO Active BACTRIM DS 800-160 MG TAB 1 tab by mouth twice daily 2 TRIMETHOPRIM-SULFAMETHOXAZOLE 84476093382 No Longer Active Renan Hays MD Active FAMOTIDINE 20 MG TABS by mouth twice a day FAMOTI DINE 85313368262 Active Mitch Urbina DO Active ADULT ASPIRIN LOW STRENGTH 81 MG TBDP 1 by mouth every daily ASPIRIN 67844942230 Active Mitch Urbina DO Active METOPROLOL TARTRATE 50 MG TABS 1 by mouth twice daily METOPROLOL TARTRATE 18564185663 Active Mitch Urbina DO Active BACTRIM DS 800-160 MG TAB 1 tab by mouth twice daily 2 BACTRIM DS 800-160 MG TAB 588144 TRIMETHOPRIM-SULFAMETHOXAZOLE Inac tive PROVIGIL 100 MG TABS Take one by mouth daily 4 PROVIGIL 100 MG TABS 053005 MODAFINIL Inactive FUROSEMIDE 40 MG TABS 1 by mouth daily FU ROSEMIDE 40 MG TABS 268842 FUROSEMIDE Inactive KLOR-CON 20 MEQ PACK Take one by mouth daily 8 KLOR-CON 20 MEQ PACK 416431 POTASSIUM CHLORIDE Inactive LISINOPRIL 5 MG TABS 1 by mouth every day LISINOPRIL 5 MG TABS 640532 LISINOPRIL Inactive COLCRYS 0.6 MG TABS 1 po q 6 hours prn gout pain 03/02 COLCRYS 0.6 MG TABS 360203 COLCHICINE Inactive JANUVIA 100 MG TABS 1/2 by mouth every day JANUVI A 100 MG TABS SITAGLIPTIN PHOSPHATE Inactive SIMVASTATIN 20 MG TABS 1 tab daily at bedtime SIMVASTATIN 20 MG TABS 813008 SIMVASTATIN Inactive COUMADIN 6 MG TABS 1 by mouth every other day COUMADIN 6 MG TABS 048782 WARFARIN SODIUM Inactive COUMADIN 5 MG TABS 1 by mouth every other day COUMADIN 5 MG TABS 897374 WARFARIN SODIUM Inactive LISINOPRIL 20 MG TABS 1 tab po at HS [place]OKI NOPRIL 20 MG TABS 257105 LISINOPRIL Inactive LISINOPRIL-HYDROCHLOROTHIAZIDE 20-12.5 MG TABS 1 tab by mouth da rocky LISINOPRIL-HYDROCHLOROTHIAZIDE 20-12.5 MG TABS 942201 LISINOPRIL-HYDROCHLOROTHIAZIDE Inactive POLYTRIM 45445-3.1 UNIT/ML-% SOLN 1 drop in affected e ye every 3 hours while awake x 7 days POLYTRIM 09049-2.1 UNIT/ML-% SOLN 70963 7 POLYMYXIN B-TRIMETHOPRIM Inactive COUMADIN 4 MG TABS 1 tablet daily COUMADIN 4 MG TABS 151145 WARFARIN SODIUM Inactive CLONIDINE HCL 0.1 MG TABS 1 po bid 7 days, then 1/2 tab po b id 7 days CLONIDINE HCL 0.1 MG TABS 187963 CLONIDINE HCL I nactive ALLOPURINOL 300 MG TABS Take 1 tablet by mouth daily 2 ALLOPURINOL 300 MG TABS 886125 ALLOPURINOL Inactive MECLIZINE HCL 25 MG TAB 1 po tid 3 days, then 1/2 tab tid 3 days MECLIZINE HCL 25 MG TAB 128759 MECLIZINE HCL Inactive LOVENOX 100 MG/ML SC SOLN One injection twice a day 09/15/15 LOVENOX 100 MG/ML SC SOLN 832874 ENOXAPARIN SODIUM Inactive Vital Signs Date Name [...] CBC - Chemistry cholesterol, serum 136 mg/dL 325-344 6276/08/09 triglyceride, serum, fasting 187 mg/dL 30-200 HDL [...] 1.0-3.5 Encounters Code Encounter Date Provider Facility CPT-50178 Level 3 Est. Patient 14:21:06 CDT Mitch luis [facility] CPT-48727 Level 3 Est. Patient 14:52:06 [facility] Level 3 Est. Patient 09:34:30 GLASS VIAL FILLER Mitch luis [facility] CPT-44175 Level 3 Est. Patient 09:37:15 CDT Mitch Ambrose L janelle [facility] CPT-60608 Level 3 Est. Patient 17:01:00 GLASS VIAL FILLER Mitch W L janelle [facility] CPT-23779 Level 3 Est. Patient 13:53:19 GLASS VIAL FILLER Mitch W L janelle [facility] CPT-50747 Level 3 Est. Patient 19:19:37 GLASS VIAL FILLER Mitch W L janelle [facility] CPT-49563 Level 3 Est. Patient 13:25:53 GLASS VIAL FILLER Tavo toure MD [facility] CPT-13310 Level 3 Est. Patient 18:17:28 CDT Mitch W L janelle [facility] CPT-46567 Level 3 Est. Patient 15:22:57 CDT Mitch Ambrose L janelle [facility] CPT-92296 Level 3 Est. Patient 18:21:50 CDT Mitch W L janelle [facility] CPT-25235 Level 3 Est. Patient 18:20:38 CDT Mitch W L ee [facility] CPT-69622 Level 3 Est. Patient 15:37:55 CDT Mitch luis [facility] CPT-92776 Level 2 Est. Patient 15:54:44 CDT Carmine benton MD [facility] CPT-67421 Level 3 Est. Patient 21:46:01 GLASS VIAL FILLER Mitch luis [facility] CPT-35225 Level 3 Est. Patient 22:15:50 CDT Mitch luis [facility] CPT-91532 Level 3 Est. Patient 10:48:15 CDT Mitch luis [facility] CPT-96479 Level 3 Est. Patient 23:20:57 CDT Tavo toure MD [facility] CPT-17097 Level 3 Est. Patient 16:26:13 CDT Mitch luis [facility] Procedures Code Procedure Name Date Entry Date Standard Desc ription CPT-70267 PT/INR - LAB USE ONLY 13:32:49 GLASS VIAL FILLER CPT-92453 Venipuncture Draw Fee 13:32:49 GLASS VIAL FILLER CPT-51343 PT/INR - LAB USE ONLY 10:34:49 GLASS VIAL FILLER CPT-80583 Venipuncture Draw Fee 10:34:48 GLASS VIAL FILLER CPT-53831 PT/INR - LAB USE ONLY 09:22:03 GLASS VIAL FILLER CPT-53338 Venipuncture Draw Fee 09:22:02 GLASS VIAL FILLER CPT-95284 Hemoccult IFOBT - LAB USE ONLY 10:27:22 CDT CPT-48553 Venipuncture Draw Fee 08:27:08 CDT CPT-46422 Liver Profile - LAB USE ONLY 08:27:07 CDT 2 CPT-12514 Microalbumin - LAB USE ONLY 08:27:07 CDT 20 25/05/09 CPT-71424 PT/INR - LAB USE ONLY 08:27:07 CDT CPT-55179 HGBA1C - LAB USE ONLY 08:27:07 CDT CPT-07376 CBC - LAB USE ONLY 08:27:07 CDT CPT-34480 Venipuncture Draw Fee 11:09:14 CDT CPT-90129 Venipuncture Draw Fee 08:32:21 GLASS VIAL FILLER CPT-01142 Venipuncture Draw Fee 09:38:56 GLASS VIAL FILLER CPT-14111 No Charge Offi Visit 21:36:07 CDT 1 CPT-50617 Venipuncture Draw Fee 10:13:28 GLASS VIAL FILLER CPT-71152 Venipuncture Draw Fee 08:31:11 CDT CPT-09276 Aspir/Inject Med Joint 18:17:28 CDT CPT-94399 Venipuncture Draw Fee 10:13:30 CDT CPT-59104 Venipuncture Draw Fee 08:31:43 GLASS VIAL FILLER CPT-JTINJ Joint Injection 18:34:50 CDT CPT-06877 Knee 3V 12:25:09 CDT CPT-77202 Venipuncture Draw Fee 12:15:57 CDT CPT-060 Medical Surveillance Exam 21:31:43 CDT 2011 CPT-09940 Venipuncture Draw Fee 08:32:05 GLASS VIAL FILLER CPT-OV Office Visit 18:19:06 CDT
--- OUTSIDE RECORDS SUMMARY | 2020-01-18 13:27 | XMS REPORT | Clinical Summary ---
Author Author Admin, Mitch Leon Organization [facility] Address Unknown Phone Unavailable Allergies, Adverse [...] Coronary atherosclerosis of unspecified type of vessel, [place] or graft EDEMA 782.3 Resolved Mitch Urbina [...] by mouth twice a day 2017 FAMOTIDINE 32941072837 No Longer Active Mitch Urbina DO Active COLCRYS 0.6 MG ORAL TABLET 1 tab qid prn gout C OLCHICINE 97037891375 No Longer Active Mitch Urbina DO Active GLIMEPIRIDE 2 MG ORAL TABLET 1 po BID GLIMEPIRID E 05343248321 Active Renee Oconnor LPN Active KEFLEX 500 MG ORAL CAPSULE 1 po qid CEPHALEXI N 01842477808 No Longer Active Mitch Urbina DO Active LOSARTAN POTASSIUM 100 MG ORAL TABLET 1 pill by mouth daily, for blood pressure LOSARTAN POTASSIUM 76156672794 Active Mitch Urbina DO Active AMLODIPINE BESYLATE 5 MG ORAL TABLET 1 tablet by mouth daily 201 01/20/04 AMLODIPINE BESYLATE 56190585393 No Longer Active Joe fulton APRN Active MITIGARE 0.6 MG ORAL CAPSULE 2 capsules at onset of go ut pain, then take one capsule at 1 hour if symptoms persist. COLCHICINE 59 910314740 Active Mitch Urbina DO Active COUMADIN 1 MG ORAL TABLET 2 tabs orally daily with the 5mg tab to equal 7mg daily WARFARIN SODIUM 87510083053 Active Ana Wallace Active INVOKANA 100 MG ORAL TABLET 1 tablet orally daily CANAGLIFLOZIN 89299815564 Active Mitch Urbina DO Active MINOXIDIL 2.5 MG ORAL TABLET 1 tablet daily for high blood press ure MINOXIDIL 28323271632 Active Renee Oconnor LPN Active MECLIZINE HCL 25 MG ORAL TABLET 1 po tid 3 days, then 1/2 ta b tid 3 days MECLIZINE HCL 84001999964 No Longer Active Corey SEGURA Active ALLOPURINOL 300 MG ORAL TABLET Take 1 tablet by mouth daily 2012 ALLOPURINOL 94299717135 No Longer Active Corey SEGURA Active CLONIDINE HCL 0.1 MG ORAL TABLET 1 po bid 7 days, then 1/2 t ab po bid 7 days CLONIDINE HCL 88101515719 No Longer Active Corey SEGURA Active COUMADIN 5 MG ORAL TABLET 1 tab PO daily WARFAR IN SODIUM 24211007860 Active Mitch Urbina DO Active COUMADIN 4 MG ORAL TABLET 1 tablet daily WARFAR IN SODIUM 71324272722 No Longer Active Corey SEGURA Active POLYTRIM 09156-8.1 UNIT/ML-% OPHTHALMIC SOLUTION 1 rui p in affected eye every 3 hours while awake x 7 days POLYMYXIN B-TRIMETHOP RIM 31269014419 No Longer Active Corey SEGURA Active LOSARTAN POTASSIUM-HCTZ 100-12.5 MG ORAL TABLET 1 by m outh daily for high blood pressure LOSARTAN POTASSIUM-HCTZ 57542082707 No Longer A ctive Mitch Urbina DO Active LISINOPRIL-HYDROCHLOROTHIAZIDE 20-12.5 MG ORAL TABLET 1 tab by m outh daily LISINOPRIL-HYDROCHLOROTHIAZIDE 73289656960 No Longer Active Mitch Urbina DO Active LISINOPRIL 20 MG ORAL TABLET 1 tab po at HS LIS INOPRIL 32371691605 No Longer Active Mitch Urbina DO Active COUMADIN 5 MG ORAL TABLET 1 by mouth every other day 2 WARFARIN SODIUM 67672052766 No Longer Active Mitch Urbina DO Active COUMADIN 6 MG ORAL TABLET 1 by mouth every other day 2 WARFARIN SODIUM 13896352307 No Longer Active Mitch Urbina DO Active SIMVASTATIN 40 MG ORAL TABLET 1 tab daily at bedtime SIMVASTATIN 53789818395 Active Renee Oconnor LPN Active SIMVASTATIN 20 MG ORAL TABLET 1 tab daily at bedtime 2 SIMVASTATIN 27525190582 No Longer Active Mitch Urbina DO Active LOVENOX 100 MG/ML SUBCUTANEOUS SOLUTION One injection twice a da y ENOXAPARIN SODIUM 37213425490 No Longer Active Carmine Yusuf MD Active JANUVIA 50 MG ORAL TABLET Take one by mouth daily SITAGLIPTIN PHOSPHATE 06581789525 Active Mitch Urbina DO Active JANUVIA 100 MG ORAL TABLET 1/2 by mouth every day 2011 SITAGLIPTIN PHOSPHATE 09942797829 No Longer Active Bijal Segal RN Acti ve METFORMIN HCL 500 MG ORAL TABLET 2 by mouth twice daily METFORMIN HCL 28956603276 Active Mitch Urbina DO Active COLCRYS 0.6 MG ORAL TABLET 1 po q 6 hours prn gout pain COLCHICINE 85674931929 No Longer Active Camila Reese Active LISINOPRIL 5 MG ORAL TABLET 1 by mouth every day 11/17 LISINOPRIL 93317064970 No Longer Active Nguyen Perez Active KLOR-CON 20 MEQ ORAL PACKET Take one by mouth daily 09/10/08 POTASSIUM CHLORIDE 51430299047 No Longer Active Nguyen Perez Active FUROSEMIDE 40 MG ORAL TABLET 1 by mouth daily F UROSEMIDE 83029041895 No Longer Active Nguyen Perez Active PROVIGIL 200 MG ORAL TABLET 1/2 tab po q day MODA FINIL 19783153809 Active Renee Oconnor LPN Active PROVIGIL 100 MG ORAL TABLET Take one by mouth daily 08/20/04 MODAFINIL 22089991779 No Longer Active Mitch Urbina DO Active BACTRIM DS 800-160 MG ORAL TABLET 1 tab by mouth twice daily 201 10/19/09 TRIMETHOPRIM-SULFAMETHOXAZOLE 26171645088 No Longer Active Elian Hays MD Active ADULT ASPIRIN LOW STRENGTH 81 MG ORAL TABLET DISINTEGR ATING 1 by mouth every daily ASPIRIN 31880606893 Active Mitch Urbina DO Ac tive METOPROLOL TARTRATE 50 MG ORAL TABLET 1 by mouth twice daily METOPROLOL TARTRATE 62956614911 Active Mitch Urbina DO Active BACTRIM DS 800-160 MG ORAL TABLET 1 tab by mouth twice daily 201 10/19/09 BACTRIM DS 800-160 MG ORAL TABLET 154637 TRIMETHOPRIM-SULFAMETHOXAZOLE Inactive PROVIGIL 100 MG ORAL TABLET Take one by mouth daily 08/20/04 PROVIGIL 100 MG ORAL TABLET 500094 MODAFINIL Inactive FUROSEMIDE 40 MG ORAL TABLET 1 by mouth daily FUROSEMIDE 40 MG ORAL TABLET 242291 FUROSEMIDE Inactive KLOR-CON 20 MEQ ORAL PACKET Take one by mouth daily 09/10/08 KLOR- CON 20 MEQ ORAL PACKET 5017308 POTASSIUM CHLORIDE Inactive LISINOPRIL 5 MG ORAL TABLET 1 by mouth every day 11/17 LISINOPRIL 5 MG ORAL TABLET 596855 LISINOPRIL Inactive COLCRYS 0.6 MG ORAL TABLET 1 po q 6 hours prn gout pain COLCRYS 0.6 MG ORAL TABLET 427677 COLCHICINE Inactive JANUVIA 100 MG ORAL TABLET 1/2 by mouth every day 2011 JANUVIA 100 MG ORAL TABLET SITAGLIPTIN PHOSPHATE Inactive SIMVASTATIN 20 MG ORAL TABLET 1 tab daily at bedtime 2 SIMVASTATIN 20 MG ORAL TABLET 297492 SIMVASTATIN Inactive COUMADIN 6 MG ORAL TABLET 1 by mouth every other day COUMADIN 6 MG ORAL TABLET 801454 WARFARIN SODIUM Inactive COUMADIN 5 MG ORAL TABLET 1 by mouth every other day COUMADIN 5 MG ORAL TABLET 456589 WARFARIN SODIUM Inactive LISINOPRIL 20 MG ORAL TABLET 1 tab po at HS LISINOPRIL 20 MG ORAL TABLET 263020 LISINOPRIL Inactive LISINOPRIL-HYDROCHLOROTHIAZIDE 20-12.5 MG ORAL TABLET 1 tab by m outh daily LISINOPRIL-HYDROCHLOROTHIAZIDE 20-12.5 MG ORAL TABLET 421280 LISINOPRIL-HYDROCHLOROTHIAZIDE Inactive POLYTRIM 19585-5.1 UNIT/ML-% OPHTHALMIC SOLUTION 1 rui p in affected eye every 3 hours while awake x 7 days POLYTRIM 1000 0-0.1 UNIT/ML-% OPHTHALMIC SOLUTION 360918 POLYMYXIN B-TRIMETHOPRIM Inactive COUMADIN 4 MG ORAL TABLET 1 tablet daily COUMADIN 4 MG ORAL TABLET 940163 WARFARIN SODIUM Inactive CLONIDINE HCL 0.1 MG ORAL TABLET 1 po bid 7 days, then 1/2 t ab po bid 7 days CLONIDINE HCL 0.1 MG ORAL TABLET 906979 CLONIDIN E HCL Inactive ALLOPURINOL 300 MG ORAL TABLET Take 1 tablet by mouth daily 2012 ALLOPURINOL 300 MG ORAL TABLET 739385 ALLOPURINOL I nactive MECLIZINE HCL 25 MG ORAL TABLET 1 po tid 3 days, then 1/2 ta b tid 3 days MECLIZINE HCL 25 MG ORAL TABLET 357067 MECLIZINE HCL Inactive AMLODIPINE BESYLATE 5 MG ORAL TABLET 1 tablet by mouth daily 201 01/20/04 AMLODIPINE BESYLATE 5 MG ORAL TABLET 937695 AMLODIPINE BESYLATE Inactive KEFLEX 500 MG ORAL CAPSULE 1 po qid K EFLEX 500 MG ORAL CAPSULE 237957 CEPHALEXIN Inactive COLCRYS 0.6 MG ORAL TABLET 1 tab qid prn gout COLCRYS 0.6 MG ORAL TABLET 302676 COLCHICINE Inactive FAMOTIDINE 20 MG ORAL TABLET by mouth twice a day 2017 FAMOTIDINE 20 MG ORAL TABLET 109517 FAMOTIDINE Inactive LOVENOX 100 MG/ML SUBCUTANEOUS SOLUTION One injection twice a da y LOVENOX 100 MG/ML SUBCUTANEOUS SOLUTION 634537 ENOXAPAR IN SODIUM Inactive Vital Signs Date [...] - Chem istry sodium, serum 139 mmol/L 120-757 4646/07/17 potassium, serum 4.2 mmol/L 3.5-5.2 chloride, serum 102 mmol/L 98-107 carbon dioxide, venous blood 28.9 mmol/L 21.0-32 .0 blood glucose 211 mg/dL 65-110 calcium, serum 10.6 mg/dL 8.5-10.1 urea nitrogen, blood 29 mg/dL 7-18 creatinine, serum 1.24 mg/dL 0.60-1.30 sodium, serum 141 mmol/L 343-082 4253/08/07 potassium, serum 4.5 mmol/L 3.5-5.2 chloride, serum 102 mmol/L 98-107 carbon dioxide, venous blood 31.7 mmol/L 21.0-32 .0 blood glucose 117 mg/dL 65-110 calcium, serum 10.5 mg/dL 8.5-10.1 urea nitrogen, blood 26 mg/dL 7-18 creatinine, serum 1.15 mg/dL 0.60-1.30 Lab Report: Lipid Panel, HEPATIC PANEL, HGBA1C - Chemistry cholesterol, serum 136 mg/dL 498-817 2115/12/06 triglyceride, serum, fasting 247 mg/dL 30-200 HDL cholesterol, serum 41 mg/dL 32-60 LDL cholesterol, serum 46 mg/dL 0-130 aspartate aminotransferase (SGOT), serum 22 U/L 15-37 alanine aminotransferase (SGPT), serum 30 U/L 12-78 bilirubin, serum, total 0.80 mg/dL 0.00-1.00 hemoglobin A1C, blood, as % of total hemoglobin 6.4 % 4.3-6.0 Encounters Code Encounter Date Provider Facility CPT-38448 Level 3 Est. Patient 18:25:53 CDT Mitch luis [facility] CPT-74141 Level 3 Est. Patient 19:43:34 CDT Mitch luis [facility] CPT-54603 Level 4 Est. Patient 09:30:18 CDT Mitch luis [facility] CPT-25152 Level 3 Est. Patient 15:10:14 CDT Joe kamara [facility] CPT-45207 Level 3 Est. Patient 15:03:46 CDT Joe kamara [facility] CPT-87610 Level 3 Est. Patient 14:21:06 CDT Mitch luis [facility] CPT-03001 Level 3 Est. Patient 14:52:06 CDT Joe kamara [facility] CPT-90852 Level 3 Est. Patient 09:34:30 BIOMEDICAL EQUIPMENT TECH Mitch luis [facility] CPT-95654 Level 3 Est. Patient 09:37:15 CDT Mitch luis [facility] CPT-28772 Level 3 Est. Patient 17:01:00 BIOMEDICAL EQUIPMENT TECH Mitch luis [facility] CPT-41246 Level 3 Est. Patient 13:53:19 BIOMEDICAL EQUIPMENT TECH Mitch luis [facility] CPT-83756 Level 3 Est. Patient 19:19:37 BIOMEDICAL EQUIPMENT TECH Mitch luis [facility] CPT-43384 Level 3 Est. Patient 13:25:53 BIOMEDICAL EQUIPMENT TECH Tavo toure MD [facility] CPT-88449 Level 3 Est. Patient 18:17:28 CDT Mitch Arnol luis [facility] CPT-96189 Level 3 Est. Patient 15:22:57 CDT Mitch luis [facility] CPT-11067 Level 3 Est. Patient 18:21:50 CDT Mitch luis [facility] CPT-32248 Level 3 Est. Patient 18:20:38 CDT Mitch Arnol luis [facility] CPT-13928 Level 3 Est. Patient 15:37:55 CDT Mitch luis [facility] CPT-73420 Level 2 Est. Patient 15:54:44 CDT Carmine benton MD [facility] CPT-60583 Level 3 Est. Patient 21:46:01 BIOMEDICAL EQUIPMENT TECH Mitch luis [facility] CPT-60634 Level 3 Est. Patient 22:15:50 CDT Mitch luis [facility] CPT-92492 Level 3 Est. Patient 10:48:15 CDT Mitch luis [facility] CPT-13919 Level 3 Est. Patient 23:20:57 CDT Tavo toure MD [facility] CPT-29992 Level 3 Est. Patient 16:26:13 CDT Mitch luis [facility] Procedures Code Procedure Name Date Entry Date Standard Desc ription CPT-JTINJ Asp/Joint Injection 18:47:02 CDT CPT-28895 Venipuncture Draw Fee 09:26:17 CDT CPT-00505 PT/INR - LAB USE ONLY 13:32:49 BIOMEDICAL EQUIPMENT TECH CPT-10733 Venipuncture Draw Fee 13:32:49 BIOMEDICAL EQUIPMENT TECH CPT-11997 PT/INR - LAB USE ONLY 10:34:49 BIOMEDICAL EQUIPMENT TECH CPT-17137 Venipuncture Draw Fee 10:34:48 BIOMEDICAL EQUIPMENT TECH CPT-07524 PT/INR - LAB USE ONLY 09:22:03 BIOMEDICAL EQUIPMENT TECH CPT-31286 Venipuncture Draw Fee 09:22:02 BIOMEDICAL EQUIPMENT TECH CPT-79972 Hemoccult IFOBT - LAB USE ONLY 10:27:22 CDT CPT-32211 Venipuncture Draw Fee 08:27:08 CDT CPT-79887 Liver Profile - LAB USE ONLY 08:27:07 CDT 2 CPT-45177 Microalbumin - LAB USE ONLY 08:27:07 CDT 20 25/05/09 CPT-43487 PT/INR - LAB USE ONLY 08:27:07 CDT CPT-96043 HGBA1C - LAB USE ONLY 08:27:07 CDT CPT-64244 CBC - LAB USE ONLY 08:27:07 CDT CPT-79978 Venipuncture Draw Fee 11:09:14 CDT CPT-84370 Venipuncture Draw Fee 08:32:21 BIOMEDICAL EQUIPMENT TECH CPT-91800 Venipuncture Draw Fee 09:38:56 BIOMEDICAL EQUIPMENT TECH CPT-03282 No Charge Offi Visit 21:36:07 CDT 1 CPT-67697 Venipuncture Draw Fee 10:13:28 BIOMEDICAL EQUIPMENT TECH CPT-77510 Venipuncture Draw Fee 08:31:11 CDT CPT-57732 Aspir/Inject Med Joint 18:17:28 CDT CPT-22530 Venipuncture Draw Fee 10:13:30 CDT CPT-36837 Venipuncture Draw Fee 08:31:43 BIOMEDICAL EQUIPMENT TECH CPT-JTINJ Joint Injection 18:34:50 CDT CPT-15956 Knee 3V 12:25:09 CDT CPT-88169 Venipuncture Draw Fee 12:15:57 CDT CPT-060 Medical Surveillance Exam 21:31:43 CDT 2011 CPT-54791 Venipuncture Draw Fee 08:32:05 BIOMEDICAL EQUIPMENT TECH CPT-OV Office Visit 18:19:06 CDT
--- OUTSIDE RECORDS SUMMARY | 2020-01-18 13:27 | XMS REPORT | Clinical Summary ---
Author Author Admin, Mitch Leon Organization 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 Inactive Mitch rUbina DO REACTIVE HYPOGLYCEMIA ICD-251.2 Inactive Mitch Urbina [...] by mouth twice a day 2017 FAMOTIDINE 55669775120 No Longer Active Mitch Urbina DO Active COLCRYS 0.6 MG ORAL TABLET 1 tab qid prn gout C OLCHICINE 80402135758 No Longer Active Mitch Urbina DO Active GLIMEPIRIDE 2 MG ORAL TABLET 1 po BID GLIMEPIRID E 33962967065 Active Renee Oconnor LPN Active KEFLEX 500 MG ORAL CAPSULE 1 po qid CEPHALEXI N 92653461213 No Longer Active Mitch Urbina DO Active LOSARTAN POTASSIUM 100 MG ORAL TABLET 1 pill by mouth daily, for blood pressure LOSARTAN POTASSIUM 10418661949 Active Mitch Urbina DO Active AMLODIPINE BESYLATE 5 MG ORAL TABLET 1 tablet by mouth daily 201 01/20/04 AMLODIPINE BESYLATE 25599272189 No Longer Active Joe fulton APRN Active MITIGARE 0.6 MG ORAL CAPSULE 2 capsules at onset of go ut pain, then take one capsule at 1 hour if symptoms persist. COLCHICINE 59 455955739 Active Mitch Urbina DO Active COUMADIN 1 MG ORAL TABLET 2 tabs orally daily with the 5mg tab to equal 7mg daily WARFARIN SODIUM 48173772200 Active Ana Wallace Active INVOKANA 100 MG ORAL TABLET 1 tablet orally daily CANAGLIFLOZIN 28325067340 Active Mitch Urbina DO Active MINOXIDIL 2.5 MG ORAL TABLET 1 tablet daily for high blood press ure MINOXIDIL 27472219640 Active Renee Oconnor LPN Active MECLIZINE HCL 25 MG ORAL TABLET 1 po tid 3 days, then 1/2 ta b tid 3 days MECLIZINE HCL 52165542245 No Longer Active Corey SEGURA Active ALLOPURINOL 300 MG ORAL TABLET Take 1 tablet by mouth daily 2012 ALLOPURINOL 92174032734 No Longer Active Corey SEGURA Active CLONIDINE HCL 0.1 MG ORAL TABLET 1 po bid 7 days, then 1/2 t ab po bid 7 days CLONIDINE HCL 02839741549 No Longer Active Corey SEGURA Active COUMADIN 5 MG ORAL TABLET 1 tab PO daily WARFAR IN SODIUM 71091339208 Active Mitch Urbina DO Active COUMADIN 4 MG ORAL TABLET 1 tablet daily WARFAR IN SODIUM 12727481807 No Longer Active Corey SEGURA Active POLYTRIM 27439-9.1 UNIT/ML-% OPHTHALMIC SOLUTION 1 rui p in affected eye every 3 hours while awake x 7 days POLYMYXIN B-TRIMETHOP RIM 89026060498 No Longer Active Corey SEGURA Active LOSARTAN POTASSIUM-HCTZ 100-12.5 MG ORAL TABLET 1 by m outh daily for high blood pressure LOSARTAN POTASSIUM-HCTZ 83760471150 No Longer A ctive Mitch Urbina DO Active LISINOPRIL-HYDROCHLOROTHIAZIDE 20-12.5 MG ORAL TABLET 1 tab by m outh daily LISINOPRIL-HYDROCHLOROTHIAZIDE 33333492857 No Longer Active Mitch Urbina DO Active LISINOPRIL 20 MG ORAL TABLET 1 tab po at HS LIS INOPRIL 75708282527 No Longer Active Mitch Urbina DO Active COUMADIN 5 MG ORAL TABLET 1 by mouth every other day 2 WARFARIN SODIUM 27843814195 No Longer Active Mitch Urbina DO Active COUMADIN 6 MG ORAL TABLET 1 by mouth every other day 2 WARFARIN SODIUM 96673563423 No Longer Active Mitch Urbina DO Active SIMVASTATIN 40 MG ORAL TABLET 1 tab daily at bedtime SIMVASTATIN 51840564830 Active Renee Oconnor LPN Active SIMVASTATIN 20 MG ORAL TABLET 1 tab daily at bedtime 2 SIMVASTATIN 29360571120 No Longer Active Mitch Urbina DO Active LOVENOX 100 MG/ML SUBCUTANEOUS SOLUTION One injection twice a da y ENOXAPARIN SODIUM 60946076094 No Longer Active Carmine Yusuf MD Active JANUVIA 50 MG ORAL TABLET Take one by mouth daily SITAGLIPTIN PHOSPHATE 30875982624 Active Mitch Urbina DO Active JANUVIA 100 MG ORAL TABLET 1/2 by mouth every day 2011 SITAGLIPTIN PHOSPHATE 51896203667 No Longer Active Bijal Segal RN Acti ve METFORMIN HCL 500 MG ORAL TABLET 2 by mouth twice daily METFORMIN HCL 50963724062 Active Mitch Urbina DO Active COLCRYS 0.6 MG ORAL TABLET 1 po q 6 hours prn gout pain COLCHICINE 33088673961 No Longer Active Camila Reese Active LISINOPRIL 5 MG ORAL TABLET 1 by mouth every day 11/17 LISINOPRIL 25190807244 No Longer Active Nguyen Perez Active KLOR-CON 20 MEQ ORAL PACKET Take one by mouth daily 09/10/08 POTASSIUM CHLORIDE 66947130740 No Longer Active Nguyen Perez Active FUROSEMIDE 40 MG ORAL TABLET 1 by mouth daily F UROSEMIDE 90241420569 No Longer Active Nguyen Perez Active PROVIGIL 200 MG ORAL TABLET 1/2 tab po q day MODA FINIL 64418627112 Active Renee Oconnor LPN Active PROVIGIL 100 MG ORAL TABLET Take one by mouth daily 08/20/04 MODAFINIL 19466257115 No Longer Active Mitch Urbina DO Active BACTRIM DS 800-160 MG ORAL TABLET 1 tab by mouth twice daily 201 10/19/09 TRIMETHOPRIM-SULFAMETHOXAZOLE 94945048651 No Longer Active Elian Hays MD Active ADULT ASPIRIN LOW STRENGTH 81 MG ORAL TABLET DISINTEGR ATING 1 by mouth every daily ASPIRIN 96280286898 Active Mitch Urbina DO Ac tive METOPROLOL TARTRATE 50 MG ORAL TABLET 1 by mouth twice daily METOPROLOL TARTRATE 97630559969 Active Mitch Urbina DO Active BACTRIM DS 800-160 MG ORAL TABLET 1 tab by mouth twice daily 201 10/19/09 BACTRIM DS 800-160 MG ORAL TABLET 285588 TRIMETHOPRIM-SULFAMETHOXAZOLE Inactive PROVIGIL 100 MG ORAL TABLET Take one by mouth daily 08/20/04 PROVIGIL 100 MG ORAL TABLET 091239 MODAFINIL Inactive FUROSEMIDE 40 MG ORAL TABLET 1 by mouth daily FUROSEMIDE 40 MG ORAL TABLET 018382 FUROSEMIDE Inactive KLOR-CON 20 MEQ ORAL PACKET Take one by mouth daily 09/10/08 KLOR- CON 20 MEQ ORAL PACKET 7418117 POTASSIUM CHLORIDE Inactive LISINOPRIL 5 MG ORAL TABLET 1 by mouth every day 11/17 LISINOPRIL 5 MG ORAL TABLET 443996 LISINOPRIL Inactive COLCRYS 0.6 MG ORAL TABLET 1 po q 6 hours prn gout pain COLCRYS 0.6 MG ORAL TABLET 912679 COLCHICINE Inactive JANUVIA 100 MG ORAL TABLET 1/2 by mouth every day 2011 JANUVIA 100 MG ORAL TABLET SITAGLIPTIN PHOSPHATE Inactive SIMVASTATIN 20 MG ORAL TABLET 1 tab daily at bedtime 2 SIMVASTATIN 20 MG ORAL TABLET 815156 SIMVASTATIN Inactive COUMADIN 6 MG ORAL TABLET 1 by mouth every other day COUMADIN 6 MG ORAL TABLET 988858 WARFARIN SODIUM Inactive COUMADIN 5 MG ORAL TABLET 1 by mouth every other day COUMADIN 5 MG ORAL TABLET 105202 WARFARIN SODIUM Inactive LISINOPRIL 20 MG ORAL TABLET 1 tab po at HS LISINOPRIL 20 MG ORAL TABLET 227126 LISINOPRIL Inactive LISINOPRIL-HYDROCHLOROTHIAZIDE 20-12.5 MG ORAL TABLET 1 tab by m outh daily LISINOPRIL-HYDROCHLOROTHIAZIDE 20-12.5 MG ORAL TABLET 562158 LISINOPRIL-HYDROCHLOROTHIAZIDE Inactive POLYTRIM 83954-1.1 UNIT/ML-% OPHTHALMIC SOLUTION 1 rui p in affected eye every 3 hours while awake x 7 days POLYTRIM 1000 0-0.1 UNIT/ML-% OPHTHALMIC SOLUTION 204080 POLYMYXIN B-TRIMETHOPRIM Inactive COUMADIN 4 MG ORAL TABLET 1 tablet daily COUMADIN 4 MG ORAL TABLET 831732 WARFARIN SODIUM Inactive CLONIDINE HCL 0.1 MG ORAL TABLET 1 po bid 7 days, then 1/2 t ab po bid 7 days CLONIDINE HCL 0.1 MG ORAL TABLET 327518 CLONIDIN E HCL Inactive ALLOPURINOL 300 MG ORAL TABLET Take 1 tablet by mouth daily 2012 ALLOPURINOL 300 MG ORAL TABLET 859650 ALLOPURINOL I nactive MECLIZINE HCL 25 MG ORAL TABLET 1 po tid 3 days, then 1/2 ta b tid 3 days MECLIZINE HCL 25 MG ORAL TABLET 444760 MECLIZINE HCL Inactive AMLODIPINE BESYLATE 5 MG ORAL TABLET 1 tablet by mouth daily 201 01/20/04 AMLODIPINE BESYLATE 5 MG ORAL TABLET 460041 AMLODIPINE BESYLATE Inactive KEFLEX 500 MG ORAL CAPSULE 1 po qid K EFLEX 500 MG ORAL CAPSULE 154611 CEPHALEXIN Inactive COLCRYS 0.6 MG ORAL TABLET 1 tab qid prn gout COLCRYS 0.6 MG ORAL TABLET 916697 COLCHICINE Inactive FAMOTIDINE 20 MG ORAL TABLET by mouth twice a day 2017 FAMOTIDINE 20 MG ORAL TABLET 494161 FAMOTIDINE Inactive LOVENOX 100 MG/ML SUBCUTANEOUS SOLUTION One injection twice a da y LOVENOX 100 MG/ML SUBCUTANEOUS SOLUTION 895907 ENOXAPAR IN SODIUM Inactive Vital Signs Date [...] - Chem istry sodium, serum 139 mmol/L 805-302 8544/07/17 potassium, serum 4.2 mmol/L 3.5-5.2 chloride, serum 102 mmol/L 98-107 carbon dioxide, venous blood 28.9 mmol/L 21.0-32 .0 blood glucose 211 mg/dL 65-110 calcium, serum 10.6 mg/dL 8.5-10.1 urea nitrogen, blood 29 mg/dL 7-18 creatinine, serum 1.24 mg/dL 0.60-1.30 sodium, serum 141 mmol/L 361-151 6288/08/07 potassium, serum 4.5 mmol/L 3.5-5.2 chloride, serum 102 mmol/L 98-107 carbon dioxide, venous blood 31.7 mmol/L 21.0-32 .0 blood glucose 117 mg/dL 65-110 calcium, serum 10.5 mg/dL 8.5-10.1 urea nitrogen, blood 26 mg/dL 7-18 creatinine, serum 1.15 mg/dL 0.60-1.30 Lab Report: Lipid Panel, HEPATIC PANEL, HGBA1C - Chemistry cholesterol, serum 136 mg/dL 418-600 7781/12/06 triglyceride, serum, fasting 247 mg/dL 30-200 HDL cholesterol, serum 41 mg/dL 32-60 LDL cholesterol, serum 46 mg/dL 0-130 aspartate aminotransferase (SGOT), serum 22 U/L 15-37 alanine aminotransferase (SGPT), serum 30 U/L 12-78 bilirubin, serum, total 0.80 mg/dL 0.00-1.00 hemoglobin A1C, blood, as % of total hemoglobin 6.4 % 4.3-6.0 Encounters Code Encounter Date Provider Facility CPT-52379 Level 3 Est. Patient 18:25:53 CDT Mitch luis [facility] CPT-17368 Level 3 Est. Patient 19:43:34 CDT Mitch luis [facility] CPT-73919 Level 4 Est. Patient 09:30:18 CDT Mitch luis [facility] CPT-34301 Level 3 Est. Patient 15:10:14 CDT Joe kamara [facility] CPT-04254 Level 3 Est. Patient 15:03:46 CDT Joe kamara [facility] CPT-74897 Level 3 Est. Patient 14:21:06 CDT Mitch luis [facility] CPT-97778 Level 3 Est. Patient 14:52:06 CDT Joe kamara [facility] CPT-44414 Level 3 Est. Patient 09:34:30 POSTER Mitch luis [facility] CPT-98565 Level 3 Est. Patient 09:37:15 CDT Mitch luis [facility] CPT-64051 Level 3 Est. Patient 17:01:00 POSTER Mitch luis [facility] CPT-21470 Level 3 Est. Patient 13:53:19 POSTER Mitch luis [facility] CPT-26446 Level 3 Est. Patient 19:19:37 POSTER Mitch luis [facility] CPT-76550 Level 3 Est. Patient 13:25:53 POSTER Tavo toure MD [facility] CPT-15630 Level 3 Est. Patient 18:17:28 CDT Mitch Arnol luis [facility] CPT-12448 Level 3 Est. Patient 15:22:57 CDT Mitch lusi [facility] CPT-69108 Level 3 Est. Patient 18:21:50 CDT Mitch luis [facility] CPT-79234 Level 3 Est. Patient 18:20:38 CDT Mitch Arnol luis [facility] CPT-13453 Level 3 Est. Patient 15:37:55 CDT Mitch luis [facility] CPT-00253 Level 2 Est. Patient 15:54:44 CDT Carmine benton MD [facility] CPT-25422 Level 3 Est. Patient 21:46:01 POSTER Mitch luis [facility] CPT-11283 Level 3 Est. Patient 22:15:50 CDT Mitch luis [facility] CPT-37987 Level 3 Est. Patient 10:48:15 CDT Mitch luis [facility] CPT-64526 Level 3 Est. Patient 23:20:57 CDT Tavo toure MD [facility] CPT-52031 Level 3 Est. Patient 16:26:13 CDT Mitch luis [facility] Procedures Code Procedure Name Date Entry Date Standard Desc ription CPT-JTINJ Asp/Joint Injection 18:47:02 CDT CPT-09451 Venipuncture Draw Fee 09:26:17 CDT CPT-18042 PT/INR - LAB USE ONLY 13:32:49 POSTER CPT-18933 Venipuncture Draw Fee 13:32:49 POSTER CPT-27171 PT/INR - LAB USE ONLY 10:34:49 POSTER CPT-40943 Venipuncture Draw Fee 10:34:48 POSTER CPT-22665 PT/INR - LAB USE ONLY 09:22:03 POSTER CPT-01442 Venipuncture Draw Fee 09:22:02 POSTER CPT-36674 Hemoccult IFOBT - LAB USE ONLY 10:27:22 CDT CPT-55775 Venipuncture Draw Fee 08:27:08 CDT CPT-52065 Liver Profile - LAB USE ONLY 08:27:07 CDT 2 CPT-65969 Microalbumin - LAB USE ONLY 08:27:07 CDT 20 25/05/09 CPT-71219 PT/INR - LAB USE ONLY 08:27:07 CDT CPT-91671 HGBA1C - LAB USE ONLY 08:27:07 CDT CPT-94162 CBC - LAB USE ONLY 08:27:07 CDT CPT-99137 Venipuncture Draw Fee 11:09:14 CDT CPT-22911 Venipuncture Draw Fee 08:32:21 POSTER CPT-46519 Venipuncture Draw Fee 09:38:56 POSTER CPT-59415 No Charge Offi Visit 21:36:07 CDT 1 CPT-12511 Venipuncture Draw Fee 10:13:28 POSTER CPT-91567 Venipuncture Draw Fee 08:31:11 CDT CPT-76088 Aspir/Inject Med Joint 18:17:28 CDT CPT-23467 Venipuncture Draw Fee 10:13:30 CDT CPT-12408 Venipuncture Draw Fee 08:31:43 POSTER CPT-JTINJ Joint Injection 18:34:50 CDT CPT-91145 Knee 3V 12:25:09 CDT CPT-69480 Venipuncture Draw Fee 12:15:57 CDT CPT-060 Medical Surveillance Exam 21:31:43 CDT 2011 CPT-67777 Venipuncture Draw Fee 08:32:05 POSTER CPT-OV Office Visit 18:19:06 CDT
--- OUTSIDE RECORDS SUMMARY | 2020-01-18 13:27 | XMS REPORT | Clinical Summary ---
[...] Coronary atherosclerosis of unspecified type of vessel, kake or graft EDEMA 782.3 Active Mitch Urbina [...] 1 tablet by mouth daily AMLODIPINE BESYLATE 02279759812 Active Mitch Urbina DO Active MECLIZINE HCL 25 MG TAB 1 po tid 3 days, then 1/2 tab tid 3 days MECLIZINE HCL 69384920721 No Longer Active Corey SEGURA Active ALLOPURINOL 300 MG TABS Take 1 tablet by mouth daily 2 ALLOPURINOL 82035798272 No Longer Active Corey SEGURA Activ e CLONIDINE HCL 0.1 MG TABS 1 po bid 7 days, then 1/2 tab po b id 7 days CLONIDINE HCL 53462986142 No Longer Active Corey SEGURA Active COUMADIN 5 MG TABS 1 tab PO daily WARFARIN SODIUM 90995173661 Active Mitch Urbina DO Active COUMADIN 4 MG TABS 1 tablet daily WARFARIN SODI UM 41085596349 No Longer Active Corey SEGURA Active POLYTRIM 34368-4.1 UNIT/ML-% SOLN 1 drop in affected e ye every 3 hours while awake x 7 days POLYMYXIN B-TRIMETHOPRIM 55607744969 N o Longer Active Corey SEGURA Active LOSARTAN POTASSIUM-HCTZ 100-12.5 MG TABS 1 by mouth da rocky for high blood pressure LOSARTAN POTASSIUM-HCTZ 35388792275 Active Stephy Urbina DO Active LISINOPRIL-HYDROCHLOROTHIAZIDE 20-12.5 MG TABS 1 tab by mouth da rocky LISINOPRIL-HYDROCHLOROTHIAZIDE 80829313538 No Longer Active Mitch luis DO Active LISINOPRIL 20 MG TABS 1 tab po at HS LISINOPRIL 34308934787 No Longer Active Mitch Urbina DO Active COUMADIN 5 MG TABS 1 by mouth every other day WARFARIN SODIUM 47376809454 No Longer Active Mitch Urbina DO Active COUMADIN 6 MG TABS 1 by mouth every other day WARFARIN SODIUM 39111002265 No Longer Active Mitch Urbina DO Active COLCRYS 0.6 MG TABS 1 tab qid prn gout COLCHICINE 73134226626 Active Corey SEGURA Active SIMVASTATIN 40 MG TABS 1 tab daily at bedtime S IMVASTATIN 30253466663 Active Mitch Urbina DO Active SIMVASTATIN 20 MG TABS 1 tab daily at bedtime S IMVASTATIN 06583941738 No Longer Active Mitch Urbina DO Active LOVENOX 100 MG/ML SC SOLN One injection twice a day 09/15/15 ENOXAPARIN SODIUM 57411127297 No Longer Active Carmine D [place] MD A ctive JANUVIA 50 MG TABS Take one by mouth daily DIEGO GLIPTIN PHOSPHATE 12274165863 Active Corey Arias PA Active JANUVIA 100 MG TABS 1/2 by mouth every day DIEGO GLIPTIN PHOSPHATE 08865907575 No Longer Active Bijalseth Segal RN Active METFORMIN HCL 500 MG TABS 2 by mouth twice daily METFORMIN HCL 21262727185 Active Mitch Urbina DO Active GLIMEPIRIDE 4 MG TABS 1 tab po bid GLIMEPIRIDE 913180 80910 Active Mitch Urbina DO Active COLCRYS 0.6 MG TABS 1 po q 6 hours prn gout pain 03/02 COLCHICINE 95738147807 No Longer Active Camila Reese Active LISINOPRIL 5 MG TABS 1 by mouth every day LISIN OPRIL 14256958295 No Longer Active Nguyenmolly Perez Active KLOR-CON 20 MEQ PACK Take one by mouth daily 8 POTASSIUM CHLORIDE 88697685402 No Longer Active Nguyen Perez Active FUROSEMIDE 40 MG TABS 1 by mouth daily FUROSEMI DE 42615888045 No Longer Active Nguyen Perez Active PROVIGIL 200 MG TABS 1/2 tab po q day MODAFINIL 32917 517314 Active Mitch Urbina DO Active PROVIGIL 100 MG TABS Take one by mouth daily MO DAFINIL 78814528799 No Longer Active Mitch Urbina DO Active BACTRIM DS 800-160 MG TAB 1 tab by mouth twice daily TRIMETHOPRIM-SULFAMETHOXAZOLE 06823105998 No Longer Active Renan Hays MD Active FAMOTIDINE 20 MG TABS by mouth twice a day FAMOTI DINE 84534210592 Active Mitch Urbina DO Active ADULT ASPIRIN LOW STRENGTH 81 MG TBDP 1 by mouth every daily ASPIRIN 00165490272 Active Mitch Urbina DO Active METOPROLOL TARTRATE 50 MG TABS 1 by mouth twice daily METOPROLOL TARTRATE 49594418622 Active Mitch W Carlitos DO Active BACTRIM DS 800-160 MG TAB 1 tab by mouth twice daily 2 BACTRIM DS 800-160 MG TAB TRIMETHOPRIM-SULFAMETHOXAZOLE Inac tive PROVIGIL 100 MG TABS Take one by mouth daily 4 PROVIGIL 100 MG TABS 427174 MODAFINIL Inactive FUROSEMIDE 40 MG TABS 1 by mouth daily FU ROSEMIDE 40 MG TABS 980892 FUROSEMIDE Inactive KLOR-CON 20 MEQ PACK Take one by mouth daily 8 KLOR-CON 20 MEQ PACK 732510 POTASSIUM CHLORIDE Inactive LISINOPRIL 5 MG TABS 1 by mouth every day LISINOPRIL 5 MG TABS 215373 LISINOPRIL Inactive COLCRYS 0.6 MG TABS 1 po q 6 hours prn gout pain 03/02 COLCRYS 0.6 MG TABS COLCHICINE Inactive JANUVIA 100 MG TABS 1/2 by mouth every day JANUVI A 100 MG TABS SITAGLIPTIN PHOSPHATE Inactive SIMVASTATIN 20 MG TABS 1 tab daily at bedtime SIMVASTATIN 20 MG TABS 572974 SIMVASTATIN Inactive COUMADIN 6 MG TABS 1 by mouth every other day COUMADIN 6 MG TABS 531824 WARFARIN SODIUM Inactive COUMADIN 5 MG TABS 1 by mouth every other day COUMADIN 5 MG TABS 872301 WARFARIN SODIUM Inactive LISINOPRIL 20 MG TABS 1 tab po at HS KOKI NOPRIL 20 MG TABS 104651 LISINOPRIL Inactive LISINOPRIL-HYDROCHLOROTHIAZIDE 20-12.5 MG TABS 1 tab by mouth da rocky LISINOPRIL-HYDROCHLOROTHIAZIDE 20-12.5 MG TABS 078240 LISINOPRIL-HYDROCHLOROTHIAZIDE Inactive POLYTRIM 88261-0.1 UNIT/ML-% SOLN 1 drop in affected e ye every 3 hours while awake x 7 days POLYTRIM 21238-9.1 UNIT/ML-% SOLN 18674 7 POLYMYXIN B-TRIMETHOPRIM Inactive COUMADIN 4 MG TABS 1 tablet daily COUMADIN 4 MG TABS 443005 WARFARIN SODIUM Inactive CLONIDINE HCL 0.1 MG TABS 1 po bid 7 days, then 1/2 tab po b id 7 days CLONIDINE HCL 0.1 MG TABS 475788 CLONIDINE HCL I nactive ALLOPURINOL 300 MG TABS Take 1 tablet by mouth daily 2 ALLOPURINOL 300 MG TABS 903202 ALLOPURINOL Inactive MECLIZINE HCL 25 MG TAB 1 po tid 3 days, then 1/2 tab tid 3 days MECLIZINE HCL 25 MG TAB 179746 MECLIZINE HCL Inactive LOVENOX 100 MG/ML SC SOLN One injection twice a day 09/15/15 LOVENOX 100 MG/ML SC SOLN 669767 ENOXAPARIN SODIUM Inactive Vital Signs Date Name [...] 10.3 mg/dL 2.6-7.2 sodium, serum 136 mmol/L 880-484 3588/07/25 potassium, serum 4.6 mmol/L 3.5-5.2 chloride, serum [...] Panel - Chemistry sodium, serum 137 mmol/L 800-424 0367/11/14 potassium, serum 4.4 mmol/L 3.5-5.2 chloride, [...] 8.0 % 4.3-6.0 cholesterol, serum 130 mg/dL 050-165 7193/11/14 triglyceride, serum, fasting 288 mg/dL 30-200 HDL cholesterol, serum 33 mg/dL 32-96 LDL cholesterol, serum 39 mg/dL 0-130 Lab Report: Comp. Metabolic Panel, HGBA1 C, Lipid Panel, Prothrombin Time - Chemistry sodium, serum 136 mmol/L 671-630 7780/12/02 potassium, serum 4.4 mmol/L 3.5-5.2 chloride, serum [...] 7.6 % 4.3-6.0 cholesterol, serum 117 mg/dL 723-584 4132/12/02 triglyceride, serum, fasting 226 mg/dL 30-200 HDL [...] 1.0-3.5 Encounters Code Encounter Date Provider Facility CPT-77865 Level 3 Est. Patient 17:01:00 [employer]OTECH [employer]IST Mitch luis [facility] CPT-81708 Level 3 Est. Patient 13:53:19 [employer]OTE[employer]ODUCTION [employer]IST Mitch luis [facility] CPT-98073 Level 3 Est. Patient 19:19:37 BIOTE[employer]IST Mitch luis [facility] CPT-95391 Level 3 Est. 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 Patient 18:17:28 CDT Mitch luis [facility] CPT-28922 Level 3 Est. Patient 15:22:57 CDT Mitch luis [facility] CPT-37610 Level 3 Est. Patient 18:21:50 CDT Mitch luis [facility] CPT-45206 Level 3 Est. Patient 18:20:38 CDT Mitch luis [facility] CPT-92071 Level 3 Est. Patient 15:37:55 CDT Mitch Castellano ee [facility] CPT-13800 Level 2 Est. Patient 15:54:44 CDT Carmine benton MD [facility] CPT-33427 Level 3 Est. Patient 21:46:01 [employer]IST Mitch luis [facility] CPT-75085 Level 3 Est. Patient 22:15:50 CDT Mitch Castellano janelle [facility] CPT-48393 Level 3 Est. Patient 10:48:15 CDT Mitch Arnol luis [facility] CPT-91599 Level 3 Est. Patient 23:20:57 CDT Tavo toure MD [facility] CPT-05780 Level 3 Est. Patient 16:26:13 CDT Mitch Castellano janelle [facility] Procedures Code Procedure Name Date Entry Date Standard Desc ription CPT-99148 Venipuncture Draw Fee 10:13:28 [employer] CPT-16963 Venipuncture Draw Fee 08:31:11 CDT CPT-07227 Aspir/Inject Med Joint 18:17:28 CDT CPT-29229 Venipuncture Draw Fee 10:13:30 CDT CPT-88553 Venipuncture Draw Fee 08:31:43 [employer]IST CPT-JTINJ Joint Injection 18:34:50 CDT CPT-29951 Knee 3V 12:25:09 CDT CPT-79096 Venipuncture Draw Fee 12:15:57 CDT CPT-060 Medical Surveillance Exam 21:31:43 CDT 2011 CPT-48721 Venipuncture Draw Fee 08:32:05 [employer]OTE[employer]ODUCTION [employer]IST CPT-OV Office Visit 18:19:06 CDT
--- OUTSIDE RECORDS SUMMARY | 2020-01-18 13:28 | XMS REPORT | Clinical Summary ---
Author Author Admin, Mitch Leon Organization [facility] Address Unknown Phone Unavailable Allergies, [...] 1/2 tab tid 3 days MECLIZINE HCL 31091228203 No Longer Active Corey SEGURA Active ALLOPURINOL 300 MG TABS Take 1 tablet by mouth daily 2 ALLOPURINOL 45707096786 No Longer Active Corey SEGURA Activ e CLONIDINE HCL 0.1 MG TABS 1 po bid 7 days, then 1/2 tab po b id 7 days CLONIDINE HCL 95884820955 No Longer Active Corey SEGURA Active COUMADIN 5 MG TABS 1 tab PO daily WARFARIN SODIUM 59715306934 Active Mitch Urbina DO Active COUMADIN 4 MG TABS 1 tablet daily WARFARIN SODI UM 92049208558 No Longer Active Corey SEGURA Active POLYTRIM 91667-4.1 UNIT/ML-% SOLN 1 drop in affected e ye every 3 hours while awake x 7 days POLYMYXIN B-TRIMETHOPRIM 53547628119 N o Longer Active Corey SEGURA Active LOSARTAN POTASSIUM-HCTZ 100-12.5 MG TABS 1 by mouth da rocky for high blood pressure LOSARTAN POTASSIUM-HCTZ 78469024159 Active Stephy Urbina DO Active LISINOPRIL-HYDROCHLOROTHIAZIDE 20-12.5 MG TABS 1 tab by mouth da rocky LISINOPRIL-HYDROCHLOROTHIAZIDE 26586315809 No Longer Active Mitch lius DO Active LISINOPRIL 20 MG TABS 1 tab po at HS LISINOPRIL 12790768528 No Longer Active Mitch Urbina DO Active COUMADIN 5 MG TABS 1 by mouth every other day WARFARIN SODIUM 95914247739 No Longer Active Mitch Urbina DO Active COUMADIN 6 MG TABS 1 by mouth every other day WARFARIN SODIUM 49540997135 No Longer Active Mitch Urbina DO Active COLCRYS 0.6 MG TABS 1 tab qid prn gout COLCHICINE 50762419665 Active Mitch Urbina DO Active SIMVASTATIN 40 MG TABS 1 tab daily at bedtime S IMVASTATIN 57137717068 Active Mitch Urbina DO Active SIMVASTATIN 20 MG TABS 1 tab daily at bedtime S IMVASTATIN 90778926812 No Longer Active Mitch Urbina DO Active LOVENOX 100 MG/ML SC SOLN One injection twice a day 09/15/15 ENOXAPARIN SODIUM 55187084529 No Longer Active Carmine Navarrete ctive JANUVIA 50 MG TABS Take one by mouth daily DIEGO GLIPTIN PHOSPHATE 44394830575 Active Mitch Urbina DO Active JANUVIA 100 MG TABS 1/2 by mouth every day DIEGO GLIPTIN PHOSPHATE 86228506686 No Longer Active Bijal Philipp RN Active METFORMIN HCL 500 MG TABS 2 by mouth twice daily METFORMIN HCL 48379452130 Active Mitch Urbina DO Active GLIMEPIRIDE 4 MG TABS 1 tab po bid GLIMEPIRIDE 931614 34456 Active Mitch Urbina DO Active COLCRYS 0.6 MG TABS 1 po q 6 hours prn gout pain 03/02 COLCHICINE 05432095500 No Longer Active Camila [employer] Active LISINOPRIL 5 MG TABS 1 by mouth every day LISIN OPRIL 14432660140 No Longer Active Nguyenmolly Perez Active KLOR-CON 20 MEQ PACK Take one by mouth daily 8 POTASSIUM CHLORIDE 24065411308 No Longer Active Nguyenmolly Perez Active FUROSEMIDE 40 MG TABS 1 by mouth daily FUROSEMI DE 23652372323 No Longer Active Nguyen Perez Active PROVIGIL 200 MG TABS 1/2 tab po q day MODAFINIL 91424 912921 Active Mitch Urbina DO Active PROVIGIL 100 MG TABS Take one by mouth daily MO DAFINIL 68840118172 No Longer Active Mitch Urbina DO Active BACTRIM DS 800-160 MG TAB 1 tab by mouth twice daily 2 TRIMETHOPRIM-SULFAMETHOXAZOLE 67191760080 No Longer Active Renan Hays MD Active FAMOTIDINE 20 MG TABS by mouth twice a day FAMOTI DINE 47306360022 Active Mitch Urbina DO Active ADULT ASPIRIN LOW STRENGTH 81 MG TBDP 1 by mouth every daily ASPIRIN 09061149452 Active Mitch Urbina DO Active METOPROLOL TARTRATE 50 MG TABS 1 by mouth twice daily METOPROLOL TARTRATE 40588282473 Active Mitch Urbina DO Active BACTRIM DS 800-160 MG TAB 1 tab by mouth twice daily 2 BACTRIM DS 800-160 MG TAB TRIMETHOPRIM-SULFAMETHOXAZOLE Inac tive PROVIGIL 100 MG TABS Take one by mouth daily 4 PROVIGIL 100 MG TABS 965831 MODAFINIL Inactive FUROSEMIDE 40 MG TABS 1 by mouth daily FU ROSEMIDE 40 MG TABS 314657 FUROSEMIDE Inactive KLOR-CON 20 MEQ PACK Take one by mouth daily 8 KLOR-CON 20 MEQ PACK 921509 POTASSIUM CHLORIDE Inactive LISINOPRIL 5 MG TABS 1 by mouth every day LISINOPRIL 5 MG TABS 116333 LISINOPRIL Inactive COLCRYS 0.6 MG TABS 1 po q 6 hours prn gout pain 03/02 COLCRYS 0.6 MG TABS COLCHICINE Inactive JANUVIA 100 MG TABS 1/2 by mouth every day JANUVI A 100 MG TABS SITAGLIPTIN PHOSPHATE Inactive SIMVASTATIN 20 MG TABS 1 tab daily at bedtime SIMVASTATIN 20 MG TABS 835350 SIMVASTATIN Inactive COUMADIN 6 MG TABS 1 by mouth every other day COUMADIN 6 MG TABS 973856 WARFARIN SODIUM Inactive COUMADIN 5 MG TABS 1 by mouth every other day COUMADIN 5 MG TABS 469567 WARFARIN SODIUM Inactive LISINOPRIL 20 MG TABS 1 tab po at HS KOKI NOPRIL 20 MG TABS 117259 LISINOPRIL Inactive LISINOPRIL-HYDROCHLOROTHIAZIDE 20-12.5 MG TABS 1 tab by mouth da rocky LISINOPRIL-HYDROCHLOROTHIAZIDE 20-12.5 MG TABS 028904 LISINOPRIL-HYDROCHLOROTHIAZIDE Inactive POLYTRIM 25409-9.1 UNIT/ML-% SOLN 1 drop in affected e ye every 3 hours while awake x 7 days POLYTRIM 49428-7.1 UNIT/ML-% SOLN 14716 7 POLYMYXIN B-TRIMETHOPRIM Inactive COUMADIN 4 MG TABS 1 tablet daily COUMADIN 4 MG TABS 754318 WARFARIN SODIUM Inactive CLONIDINE HCL 0.1 MG TABS 1 po bid 7 days, then 1/2 tab po b id 7 days CLONIDINE HCL 0.1 MG TABS 422621 CLONIDINE HCL I nactive ALLOPURINOL 300 MG TABS Take 1 tablet by mouth daily 2 ALLOPURINOL 300 MG TABS 004730 ALLOPURINOL Inactive MECLIZINE HCL 25 MG TAB 1 po tid 3 days, then 1/2 tab tid 3 days MECLIZINE HCL 25 MG TAB 660362 MECLIZINE HCL Inactive LOVENOX 100 MG/ML SC SOLN One injection twice a day 09/15/15 LOVENOX 100 MG/ML SC SOLN 562147 ENOXAPARIN SODIUM Inactive Vital Signs Date Name [...] 10.3 mg/dL 2.6-7.2 sodium, serum 136 mmol/L 829-496 5089/07/25 potassium, serum 4.6 mmol/L 3.5-5.2 chloride, serum [...] 6.9 % 4.3-6.0 cholesterol, serum 108 mg/dL 764-965 0788/11/01 triglyceride, serum, fasting 112 mg/dL 30-200 HDL [...] 1.0-3.5 Encounters Code Encounter Date Provider Facility CPT-88462 Level 3 Est. 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 Patient 19:19:37 REFRIGERATOR REPAIRMAN Mitch luis [facility] CPT-92025 Level 3 Est. Patient 13:25:53 REFRIGERATOR REPAIRMAN Tavo toure MD [facility] CPT-63293 Level 3 Est. Patient 18:17:28 CDT Mitch luis [facility] CPT-11537 Level 3 Est. Patient 15:22:57 CDT Mitch luis [facility] CPT-02356 Level 3 Est. Patient 18:21:50 CDT Mitch luis [facility] CPT-60873 Level 3 Est. Patient 18:20:38 CDT Mitch luis [facility] CPT-28226 Level 3 Est. Patient 15:37:55 CDT Mitch luis [facility] CPT-21941 Level 2 Est. Patient 15:54:44 CDT Carmine benton MD [facility] CPT-60241 Level 3 Est. Patient 21:46:01 REFRIGERATOR REPAIRMAN Mitch luis [facility] CPT-06016 Level 3 Est. Patient 22:15:50 CDT Mitch luis [facility] CPT-85935 Level 3 Est. Patient 10:48:15 CDT Mitch luis [facility] CPT-59827 Level 3 Est. Patient 23:20:57 CDT Tavo toure MD [facility] CPT-36290 Level 3 Est. Patient 16:26:13 CDT Mitch luis [facility] Procedures Code Procedure Name Date Entry Date Standard Desc ription CPT-81024 Venipuncture Draw Fee 10:13:28 REFRIGERATOR REPAIRMAN CPT-10337 Venipuncture Draw Fee 08:31:11 CDT CPT-12621 Aspir/Inject Med Joint 18:17:28 CDT CPT-65005 Venipuncture Draw Fee 10:13:30 CDT CPT-58113 Venipuncture Draw Fee 08:31:43 REFRIGERATOR REPAIRMAN CPT-JTINJ Joint Injection 18:34:50 CDT CPT-47864 Knee 3V 12:25:09 CDT CPT-37998 Venipuncture Draw Fee 12:15:57 CDT CPT-060 Medical Surveillance Exam 21:31:43 CDT 2011 CPT-03220 Venipuncture Draw Fee 08:32:05 REFRIGERATOR REPAIRMAN CPT-OV Office Visit 18:19:06 CDT
--- OUTSIDE RECORDS SUMMARY | 2020-01-18 13:28 | XMS REPORT | Clinical Summary ---
[...] of vessel, flandreau or graft EDEMA 782.3 Active Mitch Urbina [...] 1 tablet by mouth daily AMLODIPINE BESYLATE 47682294791 Active Mitch Urbina DO Active MECLIZINE HCL 25 MG TAB 1 po tid 3 days, then 1/2 tab tid 3 days MECLIZINE HCL 49605816810 No Longer Active Corey SEGURA Active ALLOPURINOL 300 MG TABS Take 1 tablet by mouth daily 2 ALLOPURINOL 70286248265 No Longer Active Corey SEGURA Activ e CLONIDINE HCL 0.1 MG TABS 1 po bid 7 days, then 1/2 tab po b id 7 days CLONIDINE HCL 07948989525 No Longer Active Corey SEGURA Active COUMADIN 5 MG TABS 1 tab PO daily WARFARIN SODIUM 52379347963 Active Mitch Urbina DO Active COUMADIN 4 MG TABS 1 tablet daily WARFARIN SODI UM 84836730446 No Longer Active Corey SEGURA Active POLYTRIM 44195-8.1 UNIT/ML-% SOLN 1 drop in affected e ye every 3 hours while awake x 7 days POLYMYXIN B-TRIMETHOPRIM 18040213962 N o Longer Active Corey SEGURA Active LOSARTAN POTASSIUM-HCTZ 100-12.5 MG TABS 1 by mouth da rocky for high blood pressure LOSARTAN POTASSIUM-HCTZ 80549709946 Active Stephy Urbina DO Active LISINOPRIL-HYDROCHLOROTHIAZIDE 20-12.5 MG TABS 1 tab by mouth da rocky LISINOPRIL-HYDROCHLOROTHIAZIDE 52663299166 No Longer Active Mitch luis DO Active LISINOPRIL 20 MG TABS 1 tab po at HS LISINOPRIL 49342987156 No Longer Active Mitch Urbina DO Active COUMADIN 5 MG TABS 1 by mouth every other day WARFARIN SODIUM 75267581707 No Longer Active Mitch Urbina DO Active COUMADIN 6 MG TABS 1 by mouth every other day WARFARIN SODIUM 16999997231 No Longer Active Mitch Urbina DO Active COLCRYS 0.6 MG TABS 1 tab qid prn gout COLCHICINE 85719052589 Active Mitch Urbina DO Active SIMVASTATIN 40 MG TABS 1 tab daily at bedtime S IMVASTATIN 25498070841 Active Mitch Urbina DO Active SIMVASTATIN 20 MG TABS 1 tab daily at bedtime S IMVASTATIN 15329655846 No Longer Active Mitch Urbina DO Active LOVENOX 100 MG/ML SC SOLN One injection twice a day 09/15/15 ENOXAPARIN SODIUM 09086318514 No Longer Active Carmine Navarrete ctive JANUVIA 50 MG TABS Take one by mouth daily DIEGO GLIPTIN PHOSPHATE 70706859703 Active Mitch Urbina DO Active JANUVIA 100 MG TABS 1/2 by mouth every day DIEGO GLIPTIN PHOSPHATE 18627323761 No Longer Active Bijal Philipp RN Active METFORMIN HCL 500 MG TABS 2 by mouth twice daily METFORMIN HCL 02522855519 Active Mitch Urbina DO Active GLIMEPIRIDE 4 MG TABS 1 tab po bid GLIMEPIRIDE 680790 48651 Active Mitch Urbina DO Active COLCRYS 0.6 MG TABS 1 po q 6 hours prn gout pain 03/02 COLCHICINE 14842152176 No Longer Active Camila Reese Active LISINOPRIL 5 MG TABS 1 by mouth every day LISIN OPRIL 08531618937 No Longer Active Nguyen Perez Active KLOR-CON 20 MEQ PACK Take one by mouth daily 8 POTASSIUM CHLORIDE 78380839093 No Longer Active Nguyen Perez Active FUROSEMIDE 40 MG TABS 1 by mouth daily FUROSEMI DE 11901852929 No Longer Active Nguyen Perez Active PROVIGIL 200 MG TABS 1/2 tab po q day MODAFINIL 06386 219779 Active Mitch Urbina DO Active PROVIGIL 100 MG TABS Take one by mouth daily MO DAFINIL 13172579504 No Longer Active Mitch Urbina DO Active BACTRIM DS 800-160 MG TAB 1 tab by mouth twice daily 2 TRIMETHOPRIM-SULFAMETHOXAZOLE 08866719313 No Longer Active Renan Hays MD Active FAMOTIDINE 20 MG TABS by mouth twice a day FAMOTI DINE 59993306501 Active Mitch Urbina DO Active ADULT ASPIRIN LOW STRENGTH 81 MG TBDP 1 by mouth every daily ASPIRIN 86938637315 Active Mitch Urbina DO Active METOPROLOL TARTRATE 50 MG TABS 1 by mouth twice daily METOPROLOL TARTRATE 82958821834 Active Mitch W [place] DO Active BACTRIM DS 800-160 MG TAB 1 tab by mouth twice daily 2 BACTRIM DS 800-160 MG TAB TRIMETHOPRIM-SULFAMETHOXAZOLE Inac tive PROVIGIL 100 MG TABS Take one by mouth daily 4 PROVIGIL 100 MG TABS 771083 MODAFINIL Inactive FUROSEMIDE 40 MG TABS 1 by mouth daily FU ROSEMIDE 40 MG TABS 911562 FUROSEMIDE Inactive KLOR-CON 20 MEQ PACK Take one by mouth daily 8 KLOR-CON 20 MEQ PACK 977807 POTASSIUM CHLORIDE Inactive LISINOPRIL 5 MG TABS 1 by mouth every day LISINOPRIL 5 MG TABS 480339 LISINOPRIL Inactive COLCRYS 0.6 MG TABS 1 po q 6 hours prn gout pain 03/02 COLCRYS 0.6 MG TABS COLCHICINE Inactive JANUVIA 100 MG TABS 1/2 by mouth every day JANUVI A 100 MG TABS SITAGLIPTIN PHOSPHATE Inactive SIMVASTATIN 20 MG TABS 1 tab daily at bedtime SIMVASTATIN 20 MG TABS 730066 SIMVASTATIN Inactive COUMADIN 6 MG TABS 1 by mouth every other day COUMADIN 6 MG TABS 580537 WARFARIN SODIUM Inactive COUMADIN 5 MG TABS 1 by mouth every other day COUMADIN 5 MG TABS 743653 WARFARIN SODIUM Inactive LISINOPRIL 20 MG TABS 1 tab po at HS KOKI NOPRIL 20 MG TABS 348232 LISINOPRIL Inactive LISINOPRIL-HYDROCHLOROTHIAZIDE 20-12.5 MG TABS 1 tab by mouth da rocky LISINOPRIL-HYDROCHLOROTHIAZIDE 20-12.5 MG TABS 614367 LISINOPRIL-HYDROCHLOROTHIAZIDE Inactive POLYTRIM 20378-1.1 UNIT/ML-% SOLN 1 drop in affected e ye every 3 hours while awake x 7 days POLYTRIM 49417-2.1 UNIT/ML-% SOLN 58894 7 POLYMYXIN B-TRIMETHOPRIM Inactive COUMADIN 4 MG TABS 1 tablet daily COUMADIN 4 MG TABS 949895 WARFARIN SODIUM Inactive CLONIDINE HCL 0.1 MG TABS 1 po bid 7 days, then 1/2 tab po b id 7 days CLONIDINE HCL 0.1 MG TABS 727579 CLONIDINE HCL I nactive ALLOPURINOL 300 MG TABS Take 1 tablet by mouth daily 2 ALLOPURINOL 300 MG TABS 765451 ALLOPURINOL Inactive MECLIZINE HCL 25 MG TAB 1 po tid 3 days, then 1/2 tab tid 3 days MECLIZINE HCL 25 MG TAB 247078 MECLIZINE HCL Inactive LOVENOX 100 MG/ML SC SOLN One injection twice a day 09/15/15 LOVENOX 100 MG/ML SC SOLN 825185 ENOXAPARIN SODIUM Inactive Vital Signs Date Name [...] 10.3 mg/dL 2.6-7.2 sodium, serum 136 mmol/L 511-269 5894/07/25 potassium, serum 4.6 mmol/L 3.5-5.2 chloride, serum [...] Panel - Chemistry sodium, serum 137 mmol/L 606-498 0566/11/14 potassium, serum 4.4 mmol/L 3.5-5.2 chloride, serum [...] 8.0 % 4.3-6.0 cholesterol, serum 130 mg/dL 493-550 7230/11/14 triglyceride, serum, fasting 288 mg/dL 30-200 HDL cholesterol, serum 33 mg/dL 32-96 LDL cholesterol, serum 39 mg/dL 0-130 Lab Report: Comp. Metabolic Panel, HGBA1 C, Lipid Panel, Prothrombin Time - Chemistry sodium, serum 136 mmol/L 541-255 4742/12/02 potassium, serum 4.4 mmol/L 3.5-5.2 chloride, serum [...] 7.6 % 4.3-6.0 cholesterol, serum 117 mg/dL 429-950 8810/12/02 triglyceride, serum, fasting 226 mg/dL 30-200 HDL [...] 1.0-3.5 Encounters Code Encounter Date Provider Facility CPT-12765 Level 3 Est. 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 Patient 18:17:28 CDT Mitch W L ee [facility] CPT-79351 Level 3 Est. Patient 15:22:57 CDT Mitch W L ee [facility]-79955 Level 3 Est. Patient 18:21:50 CDT Mitch W L ee [facility]-46532 Level 3 Est. Patient 18:20:38 CDT Mitch W L janelle [facility] CPT-85232 Level 3 Est. Patient 15:37:55 CDT Mitch W L ee [facility] CPT-87904 Level 2 Est. Patient 15:54:44 CDT Carmine benton MD [facility]-51056 Level 3 Est. 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 Patient 22:15:50 CDT Mitch W L janelle [facility] CPT-54302 Level 3 Est. Patient 10:48:15 CDT Mitch luis [facility] CPT-80413 Level 3 Est. Patient 23:20:57 CDT Tavo toure MD [facility] CPT-25143 Level 3 Est. 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
--- OUTSIDE RECORDS SUMMARY | 2020-01-18 13:28 | XMS REPORT | Clinical Summary ---
[...] Coronary atherosclerosis of unspecified type of vessel, [place] or graft EDEMA 782.3 Active Mitch Urbina [...] 1 tablet by mouth daily AMLODIPINE BESYLATE 39199548597 Active Mitch Urbina DO Active MECLIZINE HCL 25 MG TAB 1 po tid 3 days, then 1/2 tab tid 3 days MECLIZINE HCL 17146849156 No Longer Active Corey SEGURA Active ALLOPURINOL 300 MG TABS Take 1 tablet by mouth daily 2 ALLOPURINOL 90916419274 No Longer Active Corey SEGURA Activ e CLONIDINE HCL 0.1 MG TABS 1 po bid 7 days, then 1/2 tab po b id 7 days CLONIDINE HCL 88455975418 No Longer Active oCrey SEGURA Active COUMADIN 5 MG TABS 1 tab PO daily WARFARIN SODIUM 55658937714 Active Mitch Urbina DO Active COUMADIN 4 MG TABS 1 tablet daily WARFARIN SODI UM 27473851083 No Longer Active Corey SEGURA Active POLYTRIM 24120-1.1 UNIT/ML-% SOLN 1 drop in affected e ye every 3 hours while awake x 7 days POLYMYXIN B-TRIMETHOPRIM 75981370796 N o Longer Active Corey SEGURA Active LOSARTAN POTASSIUM-HCTZ 100-12.5 MG TABS 1 by mouth da rocky for high blood pressure LOSARTAN POTASSIUM-HCTZ 54395512659 Active Stephy Urbina DO Active LISINOPRIL-HYDROCHLOROTHIAZIDE 20-12.5 MG TABS 1 tab by mouth da rocky LISINOPRIL-HYDROCHLOROTHIAZIDE 54042945708 No Longer Active Mitch luis DO Active LISINOPRIL 20 MG TABS 1 tab po at HS LISINOPRIL 75017236556 No Longer Active Mitch Urbina DO Active COUMADIN 5 MG TABS 1 by mouth every other day WARFARIN SODIUM 84496387928 No Longer Active Mitch Urbina DO Active COUMADIN 6 MG TABS 1 by mouth every other day WARFARIN SODIUM 50910003916 No Longer Active Mitch Urbina DO Active COLCRYS 0.6 MG TABS 1 tab qid prn gout COLCHICINE 74959646764 Active Mitch Urbina DO Active SIMVASTATIN 40 MG TABS 1 tab daily at bedtime S IMVASTATIN 72623702960 Active Mitch Urbina DO Active SIMVASTATIN 20 MG TABS 1 tab daily at bedtime S IMVASTATIN 41882087872 No Longer Active Mitch Urbina DO Active LOVENOX 100 MG/ML SC SOLN One injection twice a day 09/15/15 ENOXAPARIN SODIUM 70504989468 No Longer Active Carmine Navarrtee ctive JANUVIA 50 MG TABS Take one by mouth daily DIEGO GLIPTIN PHOSPHATE 06954287490 Active Mitch Urbina DO Active JANUVIA 100 MG TABS 1/2 by mouth every day DIEGO GLIPTIN PHOSPHATE 12432908714 No Longer Active Bijal Philipp RN Active METFORMIN HCL 500 MG TABS 2 by mouth twice daily METFORMIN HCL 17539097837 Active Mitch Urbina DO Active GLIMEPIRIDE 4 MG TABS 1 tab po bid GLIMEPIRIDE 079325 17489 Active Mitch Urbina DO Active COLCRYS 0.6 MG TABS 1 po q 6 hours prn gout pain 03/02 COLCHICINE 90066284535 No Longer Active Camila Reese Active LISINOPRIL 5 MG TABS 1 by mouth every day LISIN OPRIL 51388989666 No Longer Active Nguyenmolly Perez Active KLOR-CON 20 MEQ PACK Take one by mouth daily 8 POTASSIUM CHLORIDE 04935453111 No Longer Active Nguyen Perez Active FUROSEMIDE 40 MG TABS 1 by mouth daily FUROSEMI DE 03683079115 No Longer Active Nguyen Perez Active PROVIGIL 200 MG TABS 1/2 tab po q day MODAFINIL 82264 082652 Active Mitch Urbina DO Active PROVIGIL 100 MG TABS Take one by mouth daily MO DAFINIL 01817609940 No Longer Active Mitch Urbina DO Active BACTRIM DS 800-160 MG TAB 1 tab by mouth twice daily 2 TRIMETHOPRIM-SULFAMETHOXAZOLE 56289071494 No Longer Active Renan Hays MD Active FAMOTIDINE 20 MG TABS by mouth twice a day FAMOTI DINE 49508838167 Active Mitch Urbina DO Active ADULT ASPIRIN LOW STRENGTH 81 MG TBDP 1 by mouth every daily ASPIRIN 87218066088 Active Mitch Urbina DO Active METOPROLOL TARTRATE 50 MG TABS 1 by mouth twice daily METOPROLOL TARTRATE 18553845372 Active Mitch W Carlitos DO Active BACTRIM DS 800-160 MG TAB 1 tab by mouth twice daily 2 BACTRIM DS 800-160 MG TAB TRIMETHOPRIM-SULFAMETHOXAZOLE Inac tive PROVIGIL 100 MG TABS Take one by mouth daily 4 PROVIGIL 100 MG TABS 231477 MODAFINIL Inactive FUROSEMIDE 40 MG TABS 1 by mouth daily FU ROSEMIDE 40 MG TABS 210030 FUROSEMIDE Inactive KLOR-CON 20 MEQ PACK Take one by mouth daily 8 KLOR-CON 20 MEQ PACK 790523 POTASSIUM CHLORIDE Inactive LISINOPRIL 5 MG TABS 1 by mouth every day LISINOPRIL 5 MG TABS 868309 LISINOPRIL Inactive COLCRYS 0.6 MG TABS 1 po q 6 hours prn gout pain 03/02 COLCRYS 0.6 MG TABS COLCHICINE Inactive JANUVIA 100 MG TABS 1/2 by mouth every day JANUVI A 100 MG TABS SITAGLIPTIN PHOSPHATE Inactive SIMVASTATIN 20 MG TABS 1 tab daily at bedtime SIMVASTATIN 20 MG TABS 436967 SIMVASTATIN Inactive COUMADIN 6 MG TABS 1 by mouth every other day COUMADIN 6 MG TABS 506987 WARFARIN SODIUM Inactive COUMADIN 5 MG TABS 1 by mouth every other day COUMADIN 5 MG TABS 599525 WARFARIN SODIUM Inactive LISINOPRIL 20 MG TABS 1 tab po at HS KOKI NOPRIL 20 MG TABS 671064 LISINOPRIL Inactive LISINOPRIL-HYDROCHLOROTHIAZIDE 20-12.5 MG TABS 1 tab by mouth da rocky LISINOPRIL-HYDROCHLOROTHIAZIDE 20-12.5 MG TABS 338190 LISINOPRIL-HYDROCHLOROTHIAZIDE Inactive POLYTRIM 07497-6.1 UNIT/ML-% SOLN 1 drop in affected e ye every 3 hours while awake x 7 days POLYTRIM 42336-3.1 UNIT/ML-% SOLN 98662 7 POLYMYXIN B-TRIMETHOPRIM Inactive COUMADIN 4 MG TABS 1 tablet daily COUMADIN 4 MG TABS 361233 WARFARIN SODIUM Inactive CLONIDINE HCL 0.1 MG TABS 1 po bid 7 days, then 1/2 tab po b id 7 days CLONIDINE HCL 0.1 MG TABS 569855 CLONIDINE HCL I nactive ALLOPURINOL 300 MG TABS Take 1 tablet by mouth daily 2 ALLOPURINOL 300 MG TABS 271782 ALLOPURINOL Inactive MECLIZINE HCL 25 MG TAB 1 po tid 3 days, then 1/2 tab tid 3 days MECLIZINE HCL 25 MG TAB 953924 MECLIZINE HCL Inactive LOVENOX 100 MG/ML SC SOLN One injection twice a day 09/15/15 LOVENOX 100 MG/ML SC SOLN 174768 ENOXAPARIN SODIUM Inactive Vital Signs Date Name [...] 10.3 mg/dL 2.6-7.2 sodium, serum 136 mmol/L 124-635 5023/07/25 potassium, serum 4.6 mmol/L 3.5-5.2 chloride, serum [...] Panel - Chemistry sodium, serum 137 mmol/L 721-939 2548/11/14 potassium, serum 4.4 mmol/L 3.5-5.2 chloride, serum [...] 8.0 % 4.3-6.0 cholesterol, serum 130 mg/dL 090-416 7914/11/14 triglyceride, serum, fasting 288 mg/dL 30-200 HDL cholesterol, serum 33 mg/dL 32-96 LDL cholesterol, serum 39 mg/dL 0-130 Lab Report: Comp. Metabolic Panel, HGBA1 C, Lipid Panel, Prothrombin Time - Chemistry sodium, serum 136 mmol/L 338-954 6492/12/02 potassium, serum 4.4 mmol/L 3.5-5.2 chloride, serum [...] 7.6 % 4.3-6.0 cholesterol, serum 117 mg/dL 071-514 9933/12/02 triglyceride, serum, fasting 226 mg/dL 30-200 HDL [...] 1.0-3.5 Encounters Code Encounter Date Provider Facility CPT-72355 Level 3 Est. Patient 17:01:00 HAM DOCTOR Mitch W L janelle [facility] CPT-98377 Level 3 Est. Patient 13:53:19 HAM DOCTOR Mitch Ambrose L ee [facility] CPT-50433 Level 3 Est. Patient 19:19:37 HAM DOCTOR Mitch W L ee [facility] CPT-20142 Level 3 Est. Patient 13:25:53 HAM DOCTOR Tavo toure MD [facility]-01563 Level 3 Est. Patient 18:17:28 CDT Mitch W L ee [facility] CPT-24124 Level 3 Est. Patient 15:22:57 CDT Mitch W L ee [facility] CPT-79589 Level 3 Est. Patient 18:21:50 CDT Mitch W L ee [facility] CPT-37413 Level 3 Est. Patient 18:20:38 CDT Mitch W L janelle [facility] CPT-12218 Level 3 Est. Patient 15:37:55 CDT Mitch W L ee [facility] CPT-99376 Level 2 Est. Patient 15:54:44 CDT Carmine benton MD [facility]-74126 Level 3 Est. Patient 21:46:01 HAM DOCTOR Mitch W L ee [facility] CPT-71560 Level 3 Est. Patient 22:15:50 CDT Mitch W L janelle [facility] CPT-52360 Level 3 Est. Patient 10:48:15 CDT Mithc W L ee [facility] CPT-86645 Level 3 Est. Patient 23:20:57 CDT Tavo toure MD [facility] CPT-76865 Level 3 Est. Patient 16:26:13 CDT Mitch luis [facility] Procedures Code Procedure Name Date Entry Date Standard Desc ription CPT-29782 Venipuncture Draw Fee 10:13:28 HAM DOCTOR CPT-59314 Venipuncture Draw Fee 08:31:11 CDT CPT-11855 Aspir/Inject Med Joint 18:17:28 CDT CPT-98301 Venipuncture Draw Fee 10:13:30 CDT CPT-79319 Venipuncture Draw Fee 08:31:43 HAM DOCTOR CPT-JTINJ Joint Injection 18:34:50 CDT CPT-83393 Knee 3V 12:25:09 CDT CPT-55278 Venipuncture Draw Fee 12:15:57 CDT CPT-060 Medical Surveillance Exam 21:31:43 CDT 2011 CPT-45588 Venipuncture Draw Fee 08:32:05 HAM DOCTOR CPT-OV Office Visit 18:19:06 CDT
--- OUTSIDE RECORDS SUMMARY | 2020-01-18 13:28 | XMS REPORT | Clinical Summary ---
Author Author Admin, Mitch Leon Organization [facility] Address Unknown Phone Allergies, Adverse Reactions, [...] [place] or graft EDEMA 782.3 Active Mitch Kilpatrick [...] 1/2 tab tid 3 days MECLIZINE HCL 40588956998 No Longer Active Corey SEGURA Active ALLOPURINOL 300 MG TABS Take 1 tablet by mouth daily 2 ALLOPURINOL 47642703923 No Longer Active Corey SEGURA Activ e CLONIDINE HCL 0.1 MG TABS 1 po bid 7 days, then 1/2 tab po b id 7 days CLONIDINE HCL 32952828006 No Longer Active Corey SEGURA Active COUMADIN 5 MG TABS 1 tab PO daily WARFARIN SODIUM 34743809039 Active Mitch Urbina DO Active COUMADIN 4 MG TABS 1 tablet daily WARFARIN SODI UM 57582450635 No Longer Active Corey SEGURA Active POLYTRIM 33558-6.1 UNIT/ML-% SOLN 1 drop in affected e ye every 3 hours while awake x 7 days POLYMYXIN B-TRIMETHOPRIM 12521447716 N o Longer Active Corey SEGURA Active LOSARTAN POTASSIUM-HCTZ 100-12.5 MG TABS 1 by mouth da [place] for high blood pressure LOSARTAN POTASSIUM-HCTZ 62589569111 Active Stephy Urbina DO Active LISINOPRIL-HYDROCHLOROTHIAZIDE 20-12.5 MG TABS 1 tab by mouth da rocky LISINOPRIL-HYDROCHLOROTHIAZIDE 55354588593 No Longer Active Mitch luis DO Active LISINOPRIL 20 MG TABS 1 tab po at HS LISINOPRIL 55629017835 No Longer Active Mitch Urbina DO Active COUMADIN 5 MG TABS 1 by mouth every other day WARFARIN SODIUM 36517867814 No Longer Active Mitch Urbina DO Active COUMADIN 6 MG TABS 1 by mouth every other day WARFARIN SODIUM 21494169878 No Longer Active Mitch Urbina DO Active COLCRYS 0.6 MG TABS 1 tab qid prn gout COLCHICINE 64346634417 Active Mitch Urbina DO Active SIMVASTATIN 40 MG TABS 1 tab daily at bedtime S IMVASTATIN 62734842224 Active Mitch Urbina DO Active SIMVASTATIN 20 MG TABS 1 tab daily at bedtime S IMVASTATIN 03803985355 No Longer Active Mitch Urbina DO Active LOVENOX 100 MG/ML SC SOLN One injection twice a day 09/15/15 ENOXAPARIN SODIUM 88354674622 No Longer Active Carmine Navarrete ctive JANUVIA 50 MG TABS Take one by mouth daily DIEGO GLIPTIN PHOSPHATE 32983221241 Active Mitch Urbina DO Active JANUVIA 100 MG TABS 1/2 by mouth every day DIEGO GLIPTIN PHOSPHATE 52754287999 No Longer Active Bijalseth Segal RN Active METFORMIN HCL 500 MG TABS 2 by mouth twice daily METFORMIN HCL 21324695958 Active Curly Coker MD Active GLIMEPIRIDE 4 MG TABS 1 tab po bid GLIMEPIRIDE 476733 59324 Active Mitch Urbina DO Active COLCRYS 0.6 MG TABS 1 po q 6 hours prn gout pain 03/02 COLCHICINE 29555430164 No Longer Active Camila Hugh Active LISINOPRIL 5 MG TABS 1 by mouth every day LISIN OPRIL 63482345368 No Longer Active Nguyenmolly Perez Active KLOR-CON 20 MEQ PACK Take one by mouth daily 8 POTASSIUM CHLORIDE 90781505533 No Longer Active Nguyenmolly Perez Active FUROSEMIDE 40 MG TABS 1 by mouth daily FUROSEMI DE 41262596958 No Longer Active Nguyen Perez Active PROVIGIL 200 MG TABS 1/2 tab po q day MODAFINIL 65559 727032 Active Mitch Urbina DO Active PROVIGIL 100 MG TABS Take one by mouth daily MO DAFINIL 90186456885 No Longer Active Mitch Urbina DO Active BACTRIM DS 800-160 MG TAB 1 tab by mouth twice daily 2 TRIMETHOPRIM-SULFAMETHOXAZOLE 66643478255 No Longer Active Renan Hays MD Active FAMOTIDINE 20 MG TABS by mouth twice a day FAMOTI DINE 71839646633 Active Mitch Urbina DO Active ADULT ASPIRIN LOW STRENGTH 81 MG TBDP 1 by mouth every daily ASPIRIN 87986162916 Active Mitch Urbina DO Active METOPROLOL TARTRATE 50 MG TABS 1 by mouth twice daily METOPROLOL TARTRATE 58007576800 Active Mitch Urbina DO Active BACTRIM DS 800-160 MG TAB 1 tab by mouth twice daily 2 BACTRIM DS 800-160 MG TAB TRIMETHOPRIM-SULFAMETHOXAZOLE Inac tive PROVIGIL 100 MG TABS Take one by mouth daily 4 PROVIGIL 100 MG TABS 955031 MODAFINIL Inactive FUROSEMIDE 40 MG TABS 1 by mouth daily FU ROSEMIDE 40 MG TABS 576420 FUROSEMIDE Inactive KLOR-CON 20 MEQ PACK Take one by mouth daily 8 KLOR-CON 20 MEQ PACK 736493 POTASSIUM CHLORIDE Inactive LISINOPRIL 5 MG TABS 1 by mouth every day LISINOPRIL 5 MG TABS 629223 LISINOPRIL Inactive COLCRYS 0.6 MG TABS 1 po q 6 hours prn gout pain 03/02 COLCRYS 0.6 MG TABS COLCHICINE Inactive JANUVIA 100 MG TABS 1/2 by mouth every day JANUVI A 100 MG TABS SITAGLIPTIN PHOSPHATE Inactive SIMVASTATIN 20 MG TABS 1 tab daily at bedtime SIMVASTATIN 20 MG TABS 254378 SIMVASTATIN Inactive COUMADIN 6 MG TABS 1 by mouth every other day COUMADIN 6 MG TABS 564772 WARFARIN SODIUM Inactive COUMADIN 5 MG TABS 1 by mouth every other day COUMADIN 5 MG TABS 588446 WARFARIN SODIUM Inactive LISINOPRIL 20 MG TABS 1 tab po at HS KOKI NOPRIL 20 MG TABS 671582 LISINOPRIL Inactive LISINOPRIL-HYDROCHLOROTHIAZIDE 20-12.5 MG TABS 1 tab by mouth da rocyk LISINOPRIL-HYDROCHLOROTHIAZIDE 20-12.5 MG TABS 165068 LISINOPRIL-HYDROCHLOROTHIAZIDE Inactive POLYTRIM 51380-2.1 UNIT/ML-% SOLN 1 drop in affected e ye every 3 hours while awake x 7 days POLYTRIM 20487-4.1 UNIT/ML-% SOLN 79768 7 POLYMYXIN B-TRIMETHOPRIM Inactive COUMADIN 4 MG TABS 1 tablet daily COUMADIN 4 MG TABS 543397 WARFARIN SODIUM Inactive CLONIDINE HCL 0.1 MG TABS 1 po bid 7 days, then 1/2 tab po b id 7 days CLONIDINE HCL 0.1 MG TABS 148951 CLONIDINE HCL I nactive ALLOPURINOL 300 MG TABS Take 1 tablet by mouth daily 2 ALLOPURINOL 300 MG TABS 582470 ALLOPURINOL Inactive MECLIZINE HCL 25 MG TAB 1 po tid 3 days, then 1/2 tab tid 3 days MECLIZINE HCL 25 MG TAB 930036 MECLIZINE HCL Inactive LOVENOX 100 MG/ML SC SOLN One injection twice a day 09/15/15 LOVENOX 100 MG/ML SC SOLN 069270 ENOXAPARIN SODIUM Inactive Vital Signs Date Name [...] managed by Mitch Urbina coagulation managed by Camila Reese coagulation managed by Mitch Urbina international normalized [...] 6.9 % 4.3-6.0 cholesterol, serum 108 mg/dL 194-741 0078/11/01 triglyceride, serum, fasting 112 mg/dL 30-200 HDL cholesterol, serum 32 mg/dL 32-96 LDL cholesterol, serum 54 mg/dL 0-130 Lab Report: CBC, HGBA1C, Lipid Panel - H ematology mean corpuscular volume, RBC 92 fL 80-97 mean corpuscular hemoglobin, RBC 29.2 pg 27. 0-31.2 leukocyte count, blood 7.0 10^3/MM^3 10*3/mm3 4.6-10.2 hematocrit, blood 30.5 % 41.0-53.0 mean corpuscular hemoglobin concentration, RBC 31.9 G/DL % 31.8-35.4 red blood cell distribution width 16.0 % 11 .6-14.8 platelet count 374 10^3/MM^3 10*3/mm3 892-164 2828/11/01 erythrocyte (RBC) count 3.33 10^6/MM^3 10*6/mm3 4.69-6.1 3 hemoglobin, blood 9.7 g/dL 13.5-17.5 Lab Report: HGBA1C - Chemistry hemoglobin A1C, blood, as % of total hemoglobin 6.5 % 4.3-6.0 Lab Report: Prothrombin Time - Coagulati on international normalized ratio (INR) 2.8 1.0-3.5 prothrombin time (patient) 20.7 SECS s 11.4-12.8 prothrombin time (patient) 16.8 SECS s 11.1-13.4 international normalized ratio (INR) 1.9 1.0-3.5 prothrombin time (patient) 15.6 SECS s 11.4-12.8 prothrombin time (patient) 18.4 SECS s 11.1-13.4 international normalized ratio (INR) 2.2 1.0-3.5 international normalized ratio (INR) 1.6 1.0-3.5 prothrombin time (patient) 17.8 SECS s 11.4-12.8 international normalized ratio (INR) 2.1 1.0-3.5 international normalized ratio (INR) 2.6 1.0-3.5 prothrombin time (patient) 19.9 SECS s 11.4-12.8 international normalized ratio (INR) 2.4 1.0-3.5 prothrombin time (patient) 18.9 SECS s 11.4-12.8 Encounters Code Encounter Date Provider Facility CPT-82219 Level 3 Est. Patient 13:53:19 CUSHION FORMER Mitch luis [facility] CPT-66218 Level 3 Est. Patient 19:19:37 CUSHION FORMER Mitch luis [facility] CPT-91898 Level 3 Est. Patient 13:25:53 CUSHION FORMER Tavo toure MD [facility] CPT-08493 Level 3 Est. Patient 18:17:28 CDT Mitch luis [facility] CPT-77647 Level 3 Est. Patient 15:22:57 CDT Mitch luis [facility] CPT-98774 Level 3 Est. Patient 18:21:50 CDT Mitch luis [facility] CPT-48358 Level 3 Est. Patient 18:20:38 CDT Mitch luis [facility] CPT-94503 Level 3 Est. Patient 15:37:55 CDT Mitch luis [facility] CPT-14703 Level 2 Est. Patient 15:54:44 CDT Carmine benton MD [facility] CPT-10920 Level 3 Est. Patient 21:46:01 CUSHION FORMER Mitch luis [facility] CPT-11560 Level 3 Est. Patient 22:15:50 CDT Mitch luis [facility] CPT-09990 Level 3 Est. Patient 10:48:15 CDT Mitch luis [facility] CPT-47936 Level 3 Est. Patient 23:20:57 CDT Tavo toure MD [facility] CPT-67266 Level 3 Est. Patient 16:26:13 CDT Mitch luis [facility] Procedures Code Procedure Name Date Entry Date Standard Desc ription CPT-39667 Venipuncture Draw Fee 10:13:28 CUSHION FORMER CPT-72850 Venipuncture Draw Fee 08:31:11 CDT CPT-66507 Aspir/Inject Med Joint 18:17:28 CDT CPT-00554 Venipuncture Draw Fee 10:13:30 CDT CPT-29302 Venipuncture Draw Fee 08:31:43 CUSHION FORMER CPT-JTINJ Joint Injection 18:34:50 CDT CPT-78451 Knee 3V 12:25:09 CDT CPT-19944 Venipuncture Draw Fee 12:15:57 CDT CPT-060 Medical Surveillance Exam 21:31:43 CDT 2011 CPT-74084 Venipuncture Draw Fee 08:32:05 CUSHION FORMER CPT-OV Office Visit 18:19:06 CDT
--- OUTSIDE RECORDS SUMMARY | 2020-01-18 13:28 | XMS REPORT | Clinical Summary ---
Author Author Admin, Mitch Leon Organization [facility] Address Unknown Phone Allergies, Adverse Reactions, Alerts [...] of vessel, modoc or graft EDEMA 782.3 Active Mitch Kilpatrick [...] 1/2 tab tid 3 days MECLIZINE HCL 43738220612 No Longer Active Corey SEGURA Active ALLOPURINOL 300 MG TABS Take 1 tablet by mouth daily 2 ALLOPURINOL 85385110671 No Longer Active Corey SEGURA Activ e CLONIDINE HCL 0.1 MG TABS 1 po bid 7 days, then 1/2 tab po b id 7 days CLONIDINE HCL 12165388585 No Longer Active Corey SEGURA Active COUMADIN 5 MG TABS 1 tab PO daily WARFARIN SODIUM 79828568912 Active Mitch Urbina DO Active COUMADIN 4 MG TABS 1 tablet daily WARFARIN SODI UM 31893198910 No Longer Active Corey SEGURA Active POLYTRIM 26893-8.1 UNIT/ML-% SOLN 1 drop in affected e ye every 3 hours while awake x 7 days POLYMYXIN B-TRIMETHOPRIM 68299125454 N o Longer Active Corey SEGURA Active LOSARTAN POTASSIUM-HCTZ 100-12.5 MG TABS 1 by mouth da rocky for high blood pressure LOSARTAN POTASSIUM-HCTZ 98259742624 Active Stephy Urbina DO Active LISINOPRIL-HYDROCHLOROTHIAZIDE 20-12.5 MG TABS 1 tab by mouth da rocky LISINOPRIL-HYDROCHLOROTHIAZIDE 81286167423 No Longer Active Mitch luis DO Active LISINOPRIL 20 MG TABS 1 tab po at HS LISINOPRIL 62238772504 No Longer Active Mitch Urbina DO Active COUMADIN 5 MG TABS 1 by mouth every other day WARFARIN SODIUM 93508914112 No Longer Active Mitch Urbina DO Active COUMADIN 6 MG TABS 1 by mouth every other day WARFARIN SODIUM 24063533890 No Longer Active Mitch Urbina DO Active COLCRYS 0.6 MG TABS 1 tab qid prn gout COLCHICINE 80430350410 Active Mitch Urbina DO Active SIMVASTATIN 40 MG TABS 1 tab daily at bedtime S IMVASTATIN 71061793001 Active Mitch Urbina DO Active SIMVASTATIN 20 MG TABS 1 tab daily at bedtime S IMVASTATIN 93554056912 No Longer Active Mitch Urbina DO Active LOVENOX 100 MG/ML SC SOLN One injection twice a day 09/15/15 ENOXAPARIN SODIUM 09397068474 No Longer Active Carmine Navarrete ctive JANUVIA 50 MG TABS Take one by mouth daily DIEGO GLIPTIN PHOSPHATE 04674596958 Active Mitch Urbina DO Active JANUVIA 100 MG TABS 1/2 by mouth every day DIEGO GLIPTIN PHOSPHATE 20137600001 No Longer Active Bijal Philipp RN Active METFORMIN HCL 500 MG TABS 2 by mouth twice daily METFORMIN HCL 29806694673 Active Curly Coker MD Active GLIMEPIRIDE 4 MG TABS 1 tab po bid GLIMEPIRIDE 011485 55601 Active Mitch Urbina DO Active COLCRYS 0.6 MG TABS 1 po q 6 hours prn gout pain 03/02 COLCHICINE 04096606014 No Longer Active Camila [place] Active LISINOPRIL 5 MG TABS 1 by mouth every day LISIN OPRIL 80929212221 No Longer Active Nguyenmolly Perez Active KLOR-CON 20 MEQ PACK Take one by mouth daily POTASSIUM CHLORIDE 11743416244 No Longer Active Nguyenmolly Perez Active FUROSEMIDE 40 MG TABS 1 by mouth daily FUROSEMI DE 88245300287 No Longer Active Nguyen Perez Active PROVIGIL 200 MG TABS 1/2 tab po q day MODAFINIL 63285 609366 Active Mitch Urbina DO Active PROVIGIL 100 MG TABS Take one by mouth daily MO DAFINIL 33809317083 No Longer Active Mitch Urbina DO Active BACTRIM DS 800-160 MG TAB 1 tab by mouth twice daily TRIMETHOPRIM-SULFAMETHOXAZOLE 23564368427 No Longer Active Renan Hays MD Active FAMOTIDINE 20 MG TABS by mouth twice a day FAMOTI DINE 63463582988 Active Mitch Urbina DO Active ADULT ASPIRIN LOW STRENGTH 81 MG TBDP 1 by mouth every daily ASPIRIN 27957906483 Active Mitch Urbina DO Active METOPROLOL TARTRATE 50 MG TABS 1 by mouth twice daily METOPROLOL TARTRATE 21763045772 Active Mitch Urbina DO Active BACTRIM DS 800-160 MG TAB 1 tab by mouth twice daily 2 BACTRIM DS 800-160 MG TAB TRIMETHOPRIM-SULFAMETHOXAZOLE Inac tive PROVIGIL 100 MG TABS Take one by mouth daily 4 PROVIGIL 100 MG TABS 129877 MODAFINIL Inactive FUROSEMIDE 40 MG TABS 1 by mouth daily FU ROSEMIDE 40 MG TABS 296476 FUROSEMIDE Inactive KLOR-CON 20 MEQ PACK Take one by mouth daily 8 KLOR-CON 20 MEQ PACK 565060 POTASSIUM CHLORIDE Inactive LISINOPRIL 5 MG TABS 1 by mouth every day LISINOPRIL 5 MG TABS 148513 LISINOPRIL Inactive COLCRYS 0.6 MG TABS 1 po q 6 hours prn gout pain 03/02 COLCRYS 0.6 MG TABS COLCHICINE Inactive JANUVIA 100 MG TABS 1/2 by mouth every day JANUVI A 100 MG TABS SITAGLIPTIN PHOSPHATE Inactive SIMVASTATIN 20 MG TABS 1 tab daily at bedtime SIMVASTATIN 20 MG TABS 186314 SIMVASTATIN Inactive COUMADIN 6 MG TABS 1 by mouth every other day COUMADIN 6 MG TABS 346809 WARFARIN SODIUM Inactive COUMADIN 5 MG TABS 1 by mouth every other day COUMADIN 5 MG TABS 212077 WARFARIN SODIUM Inactive LISINOPRIL 20 MG TABS 1 tab po at HS KOKI NOPRIL 20 MG TABS 439439 LISINOPRIL Inactive LISINOPRIL-HYDROCHLOROTHIAZIDE 20-12.5 MG TABS 1 tab by mouth da rocky LISINOPRIL-HYDROCHLOROTHIAZIDE 20-12.5 MG TABS 020441 LISINOPRIL-HYDROCHLOROTHIAZIDE Inactive POLYTRIM 10841-5.1 UNIT/ML-% SOLN 1 drop in affected e ye every 3 hours while awake x 7 days POLYTRIM 02853-3.1 UNIT/ML-% SOLN 04002 7 POLYMYXIN B-TRIMETHOPRIM Inactive COUMADIN 4 MG TABS 1 tablet daily COUMADIN 4 MG TABS 141751 WARFARIN SODIUM Inactive CLONIDINE HCL 0.1 MG TABS 1 po bid 7 days, then 1/2 tab po b id 7 days CLONIDINE HCL 0.1 MG TABS 198223 CLONIDINE HCL I nactive ALLOPURINOL 300 MG TABS Take 1 tablet by mouth daily 2 ALLOPURINOL 300 MG TABS 787001 ALLOPURINOL Inactive MECLIZINE HCL 25 MG TAB 1 po tid 3 days, then 1/2 tab tid 3 days MECLIZINE HCL 25 MG TAB 784599 MECLIZINE HCL Inactive LOVENOX 100 MG/ML SC SOLN One injection twice a day 09/15/15 LOVENOX 100 MG/ML SC SOLN 132009 ENOXAPARIN SODIUM Inactive Vital Signs Date Name [...] 6.9 % 4.3-6.0 cholesterol, serum 108 mg/dL 478-463 3092/11/01 triglyceride, serum, fasting 112 mg/dL 30-200 HDL [...] ratio (INR) 2.8 1.0-3.5 prothrombin time (patient) 18.4 SECS s 11.1-13.4 international normalized ratio (INR) 2.2 1.0-3.5 Encounters Code Encounter Date Provider Facility CPT-09976 Level 3 Est. Patient 13:53:19 APPOINTMENT SETTER Mitch luis [facility] CPT-69716 Level 3 Est. Patient 19:19:37 APPOINTMENT SETTER Mitch luis [facility] CPT-24176 Level 3 Est. Patient 13:25:53 APPOINTMENT SETTER Tavo toure MD [facility] CPT-69937 Level 3 Est. Patient 18:17:28 CDT Mitch luis [facility] CPT-73958 Level 3 Est. Patient 15:22:57 CDT Mitch luis [facility] CPT-15114 Level 3 Est. Patient 18:21:50 CDT Mitch Ambrose L janelle [facility] CPT-75273 Level 3 Est. Patient 18:20:38 CDT Mitch luis [facility] CPT-34805 Level 3 Est. Patient 15:37:55 CDT Mitch Ambrose L janelle [facility] CPT-10004 Level 2 Est. Patient 15:54:44 CDT Carmine benton MD [facility]-02827 Level 3 Est. Patient 21:46:01 APPOINTMENT SETTER Mitch luis [facility] CPT-12602 Level 3 Est. Patient 22:15:50 CDT Mitch Castellano janelle [facility] CPT-63469 Level 3 Est. Patient 10:48:15 CDT Mitch Arnol Castellano janelle DO [facility] CPT-17948 Level 3 Est. Patient 23:20:57 CDT Tavo toure MD [facility] CPT-02312 Level 3 Est. Patient 16:26:13 CDT Mitch luis [facility] Procedures Code Procedure Name Date Entry Date Standard Desc ription CPT-75784 Venipuncture Draw Fee 10:13:28 APPOINTMENT SETTER CPT-20035 Venipuncture Draw Fee 08:31:11 CDT CPT-26140 Aspir/Inject Med Joint 18:17:28 CDT CPT-30343 Venipuncture Draw Fee 10:13:30 CDT CPT-13236 Venipuncture Draw Fee 08:31:43 APPOINTMENT SETTER CPT-JTINJ Joint Injection 18:34:50 CDT CPT-52034 Knee 3V 12:25:09 CDT CPT-50995 Venipuncture Draw Fee 12:15:57 CDT CPT-060 Medical Surveillance Exam 21:31:43 CDT 2011 CPT-94308 Venipuncture Draw Fee 08:32:05 APPOINTMENT SETTER CPT-OV Office Visit 18:19:06 CDT
--- OUTSIDE RECORDS SUMMARY | 2020-01-18 13:29 | XMS REPORT | Clinical Summary ---
Author Author Admin, Mitch Leon Organization [facility] Address Unknown Phone Unavailable Allergies, Adverse Reactions, Alerts Allergy Name Reaction Description Start Date Severity Status Pr ovider PENICILLIN HIVES Critical Active Mitch Urbina DO Conditions or Problems Problem Name Problem Code Onset Date Status Entry Date Provider Comment Standard Description Annotate HYPERTENSION 401.9 Active Mitch Urbina DO U nspecified essential hypertension CELLULITIS, GROIN, LEFT 682.2 Active Mtich Meraz DO Cellulitis and abscess of trunk [...] Coronary atherosclerosis of unspecified type of vessel, emmonak or graft EDEMA 782.3 Active Mitch Urbina [...] 1 tablet by mouth daily AMLODIPINE BESYLATE 87387043878 Active Mitch Urbina DO Active MECLIZINE HCL 25 MG TAB 1 po tid 3 days, then 1/2 tab tid 3 days MECLIZINE HCL 39549523506 No Longer Active Corey SEGURA Active ALLOPURINOL 300 MG TABS Take 1 tablet by mouth daily 2 ALLOPURINOL 25980972717 No Longer Active Corey SEGURA Activ e CLONIDINE HCL 0.1 MG TABS 1 po bid 7 days, then 1/2 tab po b id 7 days CLONIDINE HCL 14094026424 No Longer Active Corey SEGURA Active COUMADIN 5 MG TABS 1 tab PO daily WARFARIN SODIUM 90870505735 Active Mitch Urbina DO Active COUMADIN 4 MG TABS 1 tablet daily WARFARIN SODI UM 05197622856 No Longer Active Corey SEGURA Active POLYTRIM 00557-6.1 UNIT/ML-% SOLN 1 drop in affected e ye every 3 hours while awake x 7 days POLYMYXIN B-TRIMETHOPRIM 35383339433 N o Longer Active Corey SEGURA Active LOSARTAN POTASSIUM-HCTZ 100-12.5 MG TABS 1 by mouth da [place] for high blood pressure LOSARTAN POTASSIUM-HCTZ 44174566564 Active Stephy Urbina DO Active LISINOPRIL-HYDROCHLOROTHIAZIDE 20-12.5 MG TABS 1 tab by mouth da rocky LISINOPRIL-HYDROCHLOROTHIAZIDE 42036013957 No Longer Active Mitch luis DO Active LISINOPRIL 20 MG TABS 1 tab po at HS LISINOPRIL 22159833067 No Longer Active Mitch Urbina DO Active COUMADIN 5 MG TABS 1 by mouth every other day WARFARIN SODIUM 94755831906 No Longer Active Mitch Urbina DO Active COUMADIN 6 MG TABS 1 by mouth every other day WARFARIN SODIUM 89810954841 No Longer Active Mitch Urbina DO Active COLCRYS 0.6 MG TABS 1 tab qid prn gout COLCHICINE 82982861036 Active Mitch Urbina DO Active SIMVASTATIN 40 MG TABS 1 tab daily at bedtime S IMVASTATIN 59515893528 Active Mitch Urbina DO Active SIMVASTATIN 20 MG TABS 1 tab daily at bedtime S IMVASTATIN 05334315646 No Longer Active Mitch Urbina DO Active LOVENOX 100 MG/ML SC SOLN One injection twice a day 09/15/15 ENOXAPARIN SODIUM 56445309605 No Longer Active Carmine Navarrete ctive JANUVIA 50 MG TABS Take one by mouth daily DIEGO GLIPTIN PHOSPHATE 23015315811 Active Mitch Urbina DO Active JANUVIA 100 MG TABS 1/2 by mouth every day DIEGO GLIPTIN PHOSPHATE 45276288973 No Longer Active Bijal Philipp RN Active METFORMIN HCL 500 MG TABS 2 by mouth twice daily METFORMIN HCL 45235348011 Active Mitch Urbina DO Active GLIMEPIRIDE 4 MG TABS 1 tab po bid GLIMEPIRIDE 752192 63328 Active Mitch Urbina DO Active COLCRYS 0.6 MG TABS 1 po q 6 hours prn gout pain 03/02 COLCHICINE 70077420956 No Longer Active Camila Reese Active LISINOPRIL 5 MG TABS 1 by mouth every day LISIN OPRIL 91513334416 No Longer Active Nguyenmolly Perez Active KLOR-CON 20 MEQ PACK Take one by mouth daily 8 POTASSIUM CHLORIDE 70440975140 No Longer Active Nguyen Perez Active FUROSEMIDE 40 MG TABS 1 by mouth daily FUROSEMI DE 20121711385 No Longer Active Nguyen Perez Active PROVIGIL 200 MG TABS 1/2 tab po q day MODAFINIL 85549 624919 Active Mitch Urbina DO Active PROVIGIL 100 MG TABS Take one by mouth daily MO DAFINIL 04405572548 No Longer Active Mitch Urbina DO Active BACTRIM DS 800-160 MG TAB 1 tab by mouth twice daily 2 TRIMETHOPRIM-SULFAMETHOXAZOLE 37778785969 No Longer Active Renan Hays MD Active FAMOTIDINE 20 MG TABS by mouth twice a day FAMOTI DINE 81084410376 Active Mitch Urbina DO Active ADULT ASPIRIN LOW STRENGTH 81 MG TBDP 1 by mouth every daily ASPIRIN 08585793208 Active Mitch Urbina DO Active METOPROLOL TARTRATE 50 MG TABS 1 by mouth twice daily METOPROLOL TARTRATE 79313869812 Active Mitch W [place] DO Active BACTRIM DS 800-160 MG TAB 1 tab by mouth twice daily 2 BACTRIM DS 800-160 MG TAB TRIMETHOPRIM-SULFAMETHOXAZOLE Inac tive PROVIGIL 100 MG TABS Take one by mouth daily 4 PROVIGIL 100 MG TABS 277473 MODAFINIL Inactive FUROSEMIDE 40 MG TABS 1 by mouth daily FU ROSEMIDE 40 MG TABS 637153 FUROSEMIDE Inactive KLOR-CON 20 MEQ PACK Take one by mouth daily 8 KLOR-CON 20 MEQ PACK 154077 POTASSIUM CHLORIDE Inactive LISINOPRIL 5 MG TABS 1 by mouth every day LISINOPRIL 5 MG TABS 385453 LISINOPRIL Inactive COLCRYS 0.6 MG TABS 1 po q 6 hours prn gout pain 03/02 COLCRYS 0.6 MG TABS COLCHICINE Inactive JANUVIA 100 MG TABS 1/2 by mouth every day JANUVI A 100 MG TABS SITAGLIPTIN PHOSPHATE Inactive SIMVASTATIN 20 MG TABS 1 tab daily at bedtime SIMVASTATIN 20 MG TABS 131024 SIMVASTATIN Inactive COUMADIN 6 MG TABS 1 by mouth every other day COUMADIN 6 MG TABS 719167 WARFARIN SODIUM Inactive COUMADIN 5 MG TABS 1 by mouth every other day COUMADIN 5 MG TABS 204353 WARFARIN SODIUM Inactive LISINOPRIL 20 MG TABS 1 tab po at HS KOKI NOPRIL 20 MG TABS 398343 LISINOPRIL Inactive LISINOPRIL-HYDROCHLOROTHIAZIDE 20-12.5 MG TABS 1 tab by mouth da rocky LISINOPRIL-HYDROCHLOROTHIAZIDE 20-12.5 MG TABS 814355 LISINOPRIL-HYDROCHLOROTHIAZIDE Inactive POLYTRIM 30463-9.1 UNIT/ML-% SOLN 1 drop in affected e ye every 3 hours while awake x 7 days POLYTRIM 07658-9.1 UNIT/ML-% SOLN 47734 7 POLYMYXIN B-TRIMETHOPRIM Inactive COUMADIN 4 MG TABS 1 tablet daily COUMADIN 4 MG TABS 748713 WARFARIN SODIUM Inactive CLONIDINE HCL 0.1 MG TABS 1 po bid 7 days, then 1/2 tab po b id 7 days CLONIDINE HCL 0.1 MG TABS 139211 CLONIDINE HCL I nactive ALLOPURINOL 300 MG TABS Take 1 tablet by mouth daily 2 ALLOPURINOL 300 MG TABS 004942 ALLOPURINOL Inactive MECLIZINE HCL 25 MG TAB 1 po tid 3 days, then 1/2 tab tid 3 days MECLIZINE HCL 25 MG TAB 629292 MECLIZINE HCL Inactive LOVENOX 100 MG/ML SC SOLN One injection twice a day 09/15/15 LOVENOX 100 MG/ML SC SOLN 397389 ENOXAPARIN SODIUM Inactive Vital Signs Date Name [...] 10.3 mg/dL 2.6-7.2 sodium, serum 136 mmol/L 141-786 9226/07/25 potassium, serum 4.6 mmol/L 3.5-5.2 chloride, serum [...] Panel - Chemistry sodium, serum 137 mmol/L 184-973 5341/11/14 potassium, serum 4.4 mmol/L 3.5-5.2 chloride, serum [...] 8.0 % 4.3-6.0 cholesterol, serum 130 mg/dL 349-744 1622/11/14 triglyceride, serum, fasting 288 mg/dL 30-200 HDL cholesterol, serum 33 mg/dL 32-96 LDL cholesterol, serum 39 mg/dL 0-130 Lab Report: Comp. Metabolic Panel, HGBA1 C, Lipid Panel, Prothrombin Time - Chemistry sodium, serum 136 mmol/L 974-264 8345/12/02 potassium, serum 4.4 mmol/L 3.5-5.2 chloride, serum [...] 7.6 % 4.3-6.0 cholesterol, serum 117 mg/dL 502-032 4964/12/02 triglyceride, serum, fasting 226 mg/dL 30-200 [...] 1.0-3.5 Encounters Code Encounter Date Provider Facility CPT-67153 Level 3 Est. Patient 17:01:00 ROAD TRAFFIC CONTROLLER Mitch W L janelle [facility] CPT-87078 Level 3 Est. Patient 13:53:19 ROAD TRAFFIC CONTROLLER Mitch Ambrose L ee [facility] CPT-16754 Level 3 Est. Patient 19:19:37 ROAD TRAFFIC CONTROLLER Mitch W L ee [facility] CPT-12923 Level 3 Est. Patient 13:25:53 ROAD TRAFFIC CONTROLLER Tavo toure MD [facility]-13346 Level 3 Est. Patient 18:17:28 CDT Mitch W L ee [facility] CPT-74441 Level 3 Est. Patient 15:22:57 CDT Mitch W L ee [facility] CPT-05024 Level 3 Est. Patient 18:21:50 CDT Mitch W L ee [facility] CPT-96688 Level 3 Est. Patient 18:20:38 CDT Mitch W L janelle [facility] CPT-74517 Level 3 Est. Patient 15:37:55 CDT Mitch W L ee [facility] CPT-83430 Level 2 Est. Patient 15:54:44 CDT Carmine benton MD [facility]-12989 Level 3 Est. Patient 21:46:01 RO[address] TRAFFIC CONTROLLER Mitch W L ee [facility] CPT-98096 Level 3 Est. Patient 22:15:50 CDT Mitch W L janelle [facility] CPT-60594 Level 3 Est. Patient 10:48:15 CDT Mitch W L ee [facility] CPT-53779 Level 3 Est. Patient 23:20:57 CDT Tavo toure MD [facility] CPT-47549 Level 3 Est. Patient 16:26:13 CDT Mitch luis [facility] Procedures Code Procedure Name Date Entry Date Standard Desc ription CPT-88744 Venipuncture Draw Fee 10:13:28 ROAD TRAFFIC CONTROLLER CPT-72506 Venipuncture Draw Fee 08:31:11 CDT CPT-71076 Aspir/Inject Med Joint 18:17:28 CDT CPT-14319 Venipuncture Draw Fee 10:13:30 CDT CPT-02260 Venipuncture Draw Fee 08:31:43 ROAD TRAFFIC CONTROLLER CPT-JTINJ Joint Injection 18:34:50 CDT CPT-70073 Knee 3V 12:25:09 CDT CPT-38919 Venipuncture Draw Fee 12:15:57 CDT CPT-060 Medical Surveillance Exam 21:31:43 CDT 2011 CPT-61677 Venipuncture Draw Fee 08:32:05 RO[address] TRAFFIC CONTROLLER CPT-OV Office Visit 18:19:06 CDT
--- OUTSIDE RECORDS SUMMARY | 2020-01-18 13:29 | XMS REPORT | Clinical Summary ---
Author Author Admin, Mitch Leon Organization [facility] Address Unknown Phone Unavailable Allergies, [...] Coronary atherosclerosis of unspecified type of vessel, lytton or graft EDEMA 782.3 Active Mitch Urbina DO Stephen ma DEGENERATIVE JOINT DISEASE, KNEES, 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 3 Active Mithc Urbina DO Osteoarthrosis, unsp ecified whether generalized [...] 1/2 tab tid 3 days MECLIZINE HCL 14086882391 No Longer Active Corey SEGURA Active ALLOPURINOL 300 MG TABS Take 1 tablet by mouth daily 2 ALLOPURINOL 98387231260 No Longer Active Corey SEGURA Activ e CLONIDINE HCL 0.1 MG TABS 1 po bid 7 days, then 1/2 tab po b id 7 days CLONIDINE HCL 53091366537 No Longer Active Corey SEGURA Active COUMADIN 5 MG TABS 1 tab PO daily WARFARIN SODIUM 10641800979 Active Mitch Urbina DO Active COUMADIN 4 MG TABS 1 tablet daily WARFARIN SODI UM 24174647918 No Longer Active Corey SEGURA Active POLYTRIM 18080-1.1 UNIT/ML-% SOLN 1 drop in affected e ye every 3 hours while awake x 7 days POLYMYXIN B-TRIMETHOPRIM 36249699996 N o Longer Active Corey SEGURA Active LOSARTAN POTASSIUM-HCTZ 100-12.5 MG TABS 1 by mouth da rocky for high blood pressure LOSARTAN POTASSIUM-HCTZ 99550850023 Active Stephy Urbina DO Active LISINOPRIL-HYDROCHLOROTHIAZIDE 20-12.5 MG TABS 1 tab by mouth da rocky LISINOPRIL-HYDROCHLOROTHIAZIDE 01044025883 No Longer Active Mitch luis DO Active LISINOPRIL 20 MG TABS 1 tab po at HS LISINOPRIL 77793427717 No Longer Active Mitch Urbina DO Active COUMADIN 5 MG TABS 1 by mouth every other day WARFARIN SODIUM 69819663808 No Longer Active Mitch Urbina DO Active COUMADIN 6 MG TABS 1 by mouth every other day WARFARIN SODIUM 82691582440 No Longer Active Mitch Urbina DO Active COLCRYS 0.6 MG TABS 1 tab qid prn gout COLCHICINE 34097189194 Active Mitch Urbina DO Active SIMVASTATIN 40 MG TABS 1 tab daily at bedtime S IMVASTATIN 40452536921 Active Mitch Urbina DO Active SIMVASTATIN 20 MG TABS 1 tab daily at bedtime S IMVASTATIN 83796083085 No Longer Active Mitch Urbina DO Active LOVENOX 100 MG/ML SC SOLN One injection twice a day 09/15/15 ENOXAPARIN SODIUM 79940565967 No Longer Active Carmine Navarrete ctive JANUVIA 50 MG TABS Take one by mouth daily DIEGO GLIPTIN PHOSPHATE 52009416972 Active Mitch Urbina DO Active JANUVIA 100 MG TABS 1/2 by mouth every day DIEGO GLIPTIN PHOSPHATE 69901736671 No Longer Active Bijalseth Segal RN Active METFORMIN HCL 500 MG TABS 2 by mouth twice daily METFORMIN HCL 81687039029 Active Mitch Urbina DO Active GLIMEPIRIDE 4 MG TABS 1 tab po bid GLIMEPIRIDE 997683 79187 Active Mitch Urbina DO Active COLCRYS 0.6 MG TABS 1 po q 6 hours prn gout pain 03/02 COLCHICINE 63606349004 No Longer Active Camila [place] Active LISINOPRIL 5 MG TABS 1 by mouth every day LISIN OPRIL 55806519347 No Longer Active Nguyenmolly Perez Active KLOR-CON 20 MEQ PACK Take one by mouth daily 8 POTASSIUM CHLORIDE 43405528947 No Longer Active Nguyenmolly Perez Active FUROSEMIDE 40 MG TABS 1 by mouth daily FUROSEMI DE 67731191953 No Longer Active Nguyen Perez Active PROVIGIL 200 MG TABS 1/2 tab po q day MODAFINIL 17586 048300 Active Mitch Urbina DO Active PROVIGIL 100 MG TABS Take one by mouth daily MO DAFINIL 86244563457 No Longer Active Mitch Urbina DO Active BACTRIM DS 800-160 MG TAB 1 tab by mouth twice daily 2 TRIMETHOPRIM-SULFAMETHOXAZOLE 76591625133 No Longer Active Renan Hays MD Active FAMOTIDINE 20 MG TABS by mouth twice a day FAMOTI DINE 15495887960 Active Mitch Urbina DO Active ADULT ASPIRIN LOW STRENGTH 81 MG TBDP 1 by mouth every daily ASPIRIN 90663397071 Active Mitch Urbina DO Active METOPROLOL TARTRATE 50 MG TABS 1 by mouth twice daily METOPROLOL TARTRATE 30076586417 Active Mitch Urbina DO Active BACTRIM DS 800-160 MG TAB 1 tab by mouth twice daily 2 BACTRIM DS 800-160 MG TAB TRIMETHOPRIM-SULFAMETHOXAZOLE Inac tive PROVIGIL 100 MG TABS Take one by mouth daily 4 PROVIGIL 100 MG TABS 345989 MODAFINIL Inactive FUROSEMIDE 40 MG TABS 1 by mouth daily FU ROSEMIDE 40 MG TABS 757918 FUROSEMIDE Inactive KLOR-CON 20 MEQ PACK Take one by mouth daily 8 KLOR-CON 20 MEQ PACK 150623 POTASSIUM CHLORIDE Inactive LISINOPRIL 5 MG TABS 1 by mouth every day LISINOPRIL 5 MG TABS 878115 LISINOPRIL Inactive COLCRYS 0.6 MG TABS 1 po q 6 hours prn gout pain 03/02 COLCRYS 0.6 MG TABS COLCHICINE Inactive JANUVIA 100 MG TABS 1/2 by mouth every day JANUVI A 100 MG TABS SITAGLIPTIN PHOSPHATE Inactive SIMVASTATIN 20 MG TABS 1 tab daily at bedtime SIMVASTATIN 20 MG TABS 843857 SIMVASTATIN Inactive COUMADIN 6 MG TABS 1 by mouth every other day COUMADIN 6 MG TABS 940348 WARFARIN SODIUM Inactive COUMADIN 5 MG TABS 1 by mouth every other day COUMADIN 5 MG TABS 566915 WARFARIN SODIUM Inactive LISINOPRIL 20 MG TABS 1 tab po at HS KOKI NOPRIL 20 MG TABS 906724 LISINOPRIL Inactive LISINOPRIL-HYDROCHLOROTHIAZIDE 20-12.5 MG TABS 1 tab by mouth da rocky LISINOPRIL-HYDROCHLOROTHIAZIDE 20-12.5 MG TABS 732010 LISINOPRIL-HYDROCHLOROTHIAZIDE Inactive POLYTRIM 43875-1.1 UNIT/ML-% SOLN 1 drop in affected e ye every 3 hours while awake x 7 days POLYTRIM 01363-3.1 UNIT/ML-% SOLN 19218 7 POLYMYXIN B-TRIMETHOPRIM Inactive COUMADIN 4 MG TABS 1 tablet daily COUMADIN 4 MG TABS 409634 WARFARIN SODIUM Inactive CLONIDINE HCL 0.1 MG TABS 1 po bid 7 days, then 1/2 tab po b id 7 days CLONIDINE HCL 0.1 MG TABS 023718 CLONIDINE HCL I nactive ALLOPURINOL 300 MG TABS Take 1 tablet by mouth daily 2 ALLOPURINOL 300 MG TABS 443113 ALLOPURINOL Inactive MECLIZINE HCL 25 MG TAB 1 po tid 3 days, then 1/2 tab tid 3 days MECLIZINE HCL 25 MG TAB 687513 MECLIZINE HCL Inactive LOVENOX 100 MG/ML SC SOLN One injection twice a day 09/15/15 LOVENOX 100 MG/ML SC SOLN 271712 ENOXAPARIN SODIUM Inactive Vital Signs Date Name [...] 10.3 mg/dL 2.6-7.2 sodium, serum 136 mmol/L 567-078 1481/07/25 potassium, serum 4.6 mmol/L 3.5-5.2 chloride, serum [...] 11 .6-14.8 platelet count 277 10^3/MM^3 10*3/mm3 287-511 7404/07/25 hemoglobin, blood 12.8 g/dL 13.5-17.5 erythrocyte (RBC) count 5.02 10^6/MM^3 10*6/mm3 4.69-6.1 3 leukocyte count, blood 6.6 10^3/MM^3 10*3/mm3 4.6-10.2 Lab Report: CBC, Comp. Metabolic Panel, HGBA1C, MICROALBUMIN, Uric Acid - Lab microalbumin, urine 30 0-19 Lab Report: CBC, HGBA1C, Lipid Panel - C hemistry hemoglobin A1C, blood, as % of total hemoglobin 6.9 % 4.3-6.0 cholesterol, serum 108 mg/dL 672-188 8149/11/01 triglyceride, serum, fasting 112 mg/dL 30-200 HDL [...] 1.0-3.5 Encounters Code Encounter Date Provider Facility CPT-29779 Level 3 Est. Patient 13:53:19 BOILER WASHER Mtich luis DO [facility] CPT-74766 Level 3 Est. Patient 19:19:37 BOILER WASHER Mitch luis DO [facility] CPT-67148 Level 3 Est. Patient 13:25:53 BOILER WASHER Tavo toure MD [facility] CPT-69774 Level 3 Est. Patient 18:17:28 CDT Mitch luis [facility] CPT-22446 Level 3 Est. Patient 15:22:57 CDT Mitch luis [facility] CPT-96611 Level 3 Est. Patient 18:21:50 CDT Mitch luis [facility] CPT-97595 Level 3 Est. Patient 18:20:38 CDT Mitch luis [facility] CPT-99549 Level 3 Est. Patient 15:37:55 CDT Mitch luis [facility] CPT-55997 Level 2 Est. Patient 15:54:44 CDT Carmine benton MD [facility] CPT-41882 Level 3 Est. Patient 21:46:01 BOILER WASHER Mitch luis [facility] CPT-34152 Level 3 Est. Patient 22:15:50 CDT Mitch luis [facility] CPT-76080 Level 3 Est. Patient 10:48:15 CDT Mitch luis [facility] CPT-50755 Level 3 Est. Patient 23:20:57 CDT Tavo toure MD [facility] CPT-42725 Level 3 Est. Patient 16:26:13 CDT Mitch luis [facility] Procedures Code Procedure Name Date Entry Date Standard Desc ription CPT-70125 Venipuncture Draw Fee 10:13:28 BOILER WASHER CPT-18939 Venipuncture Draw Fee 08:31:11 CDT CPT-19276 Aspir/Inject Med Joint 18:17:28 CDT CPT-88045 Venipuncture Draw Fee 10:13:30 CDT CPT-72105 Venipuncture Draw Fee 08:31:43 BOILER WASHER CPT-JTINJ Joint Injection 18:34:50 CDT CPT-12984 Knee 3V 12:25:09 CDT CPT-29739 Venipuncture Draw Fee 12:15:57 CDT CPT-060 Medical Surveillance Exam 21:31:43 CDT 2011 CPT-06378 Venipuncture Draw Fee 08:32:05 BOILER WASHER CPT-OV Office Visit 18:19:06 CDT
--- OUTSIDE RECORDS SUMMARY | 2020-01-18 13:29 | XMS REPORT | Clinical Summary ---
Author Author Admin, Mitch Leon Organization [facility] Address Unknown Phone Allergies, Adverse Reactions, Alerts [...] coos or graft EDEMA 782.3 Active Mitch Kilpatrick [...] 1/2 tab tid 3 days MECLIZINE HCL 18416576930 No Longer Active Corey SEGURA Active ALLOPURINOL 300 MG TABS Take 1 tablet by mouth daily 2 ALLOPURINOL 12052771777 No Longer Active Corey SEGURA Activ e CLONIDINE HCL 0.1 MG TABS 1 po bid 7 days, then 1/2 tab po b id 7 days CLONIDINE HCL 70723147879 No Longer Active Corey SEGURA Active COUMADIN 5 MG TABS 1 tab PO daily WARFARIN SODIUM 38008445103 Active Mitch Urbina DO Active COUMADIN 4 MG TABS 1 tablet daily WARFARIN SODI UM 81901544026 No Longer Active Corey SEGURA Active POLYTRIM 16887-9.1 UNIT/ML-% SOLN 1 drop in affected e ye every 3 hours while awake x 7 days POLYMYXIN B-TRIMETHOPRIM 40101714519 N o Longer Active Corey SEGURA Active LOSARTAN POTASSIUM-HCTZ 100-12.5 MG TABS 1 by mouth da [place] for high blood pressure LOSARTAN POTASSIUM-HCTZ 24364960790 Active Stephy Urbina DO Active LISINOPRIL-HYDROCHLOROTHIAZIDE 20-12.5 MG TABS 1 tab by mouth da rocky LISINOPRIL-HYDROCHLOROTHIAZIDE 31542681830 No Longer Active Mitch luis DO Active LISINOPRIL 20 MG TABS 1 tab po at HS LISINOPRIL 97590359041 No Longer Active Mitch Urbina DO Active COUMADIN 5 MG TABS 1 by mouth every other day WARFARIN SODIUM 84869756244 No Longer Active Mitch Urbina DO Active COUMADIN 6 MG TABS 1 by mouth every other day WARFARIN SODIUM 78707706511 No Longer Active Mitch Urbina DO Active COLCRYS 0.6 MG TABS 1 tab qid prn gout COLCHICINE 28264749150 Active Mitch Urbina DO Active SIMVASTATIN 40 MG TABS 1 tab daily at bedtime S IMVASTATIN 91831243582 Active Mitch Urbina DO Active SIMVASTATIN 20 MG TABS 1 tab daily at bedtime S IMVASTATIN 94922131592 No Longer Active Mitch Urbina DO Active LOVENOX 100 MG/ML SC SOLN One injection twice a day 09/15/15 ENOXAPARIN SODIUM 09114448260 No Longer Active Carmine Navarrete ctive JANUVIA 50 MG TABS Take one by mouth daily DIEGO GLIPTIN PHOSPHATE 01465814189 Active Mitch Urbina DO Active JANUVIA 100 MG TABS 1/2 by mouth every day DIEGO GLIPTIN PHOSPHATE 00038880700 No Longer Active Bijal Philipp RN Active METFORMIN HCL 500 MG TABS 2 by mouth twice daily METFORMIN HCL 51859271921 Active Curly Coker MD Active GLIMEPIRIDE 4 MG TABS 1 tab po bid GLIMEPIRIDE 769413 84804 Active Mitch Urbina DO Active COLCRYS 0.6 MG TABS 1 po q 6 hours prn gout pain 03/02 COLCHICINE 51356103972 No Longer Active Camila [place] Active LISINOPRIL 5 MG TABS 1 by mouth every day LISIN OPRIL 68542724757 No Longer Active Nguyenmolly Perez Active KLOR-CON 20 MEQ PACK Take one by mouth daily POTASSIUM CHLORIDE 46886959776 No Longer Active Nguyenmolly Perez Active FUROSEMIDE 40 MG TABS 1 by mouth daily FUROSEMI DE 16266632780 No Longer Active Nguyen Perez Active PROVIGIL 200 MG TABS 1/2 tab po q day MODAFINIL 21800 816443 Active Mitch Urbina DO Active PROVIGIL 100 MG TABS Take one by mouth daily MO DAFINIL 03338946319 No Longer Active Mitch Urbina DO Active BACTRIM DS 800-160 MG TAB 1 tab by mouth twice daily TRIMETHOPRIM-SULFAMETHOXAZOLE 82550248275 No Longer Active Renan Hays MD Active FAMOTIDINE 20 MG TABS by mouth twice a day FAMOTI DINE 78276137000 Active Mitch Urbina DO Active ADULT ASPIRIN LOW STRENGTH 81 MG TBDP 1 by mouth every daily ASPIRIN 36772507993 Active Mitch Urbina DO Active METOPROLOL TARTRATE 50 MG TABS 1 by mouth twice daily METOPROLOL TARTRATE 02836092814 Active Mitch Urbina DO Active BACTRIM DS 800-160 MG TAB 1 tab by mouth twice daily 2 BACTRIM DS 800-160 MG TAB TRIMETHOPRIM-SULFAMETHOXAZOLE Inac tive PROVIGIL 100 MG TABS Take one by mouth daily 4 PROVIGIL 100 MG TABS 337211 MODAFINIL Inactive FUROSEMIDE 40 MG TABS 1 by mouth daily FU ROSEMIDE 40 MG TABS 248888 FUROSEMIDE Inactive KLOR-CON 20 MEQ PACK Take one by mouth daily 8 KLOR-CON 20 MEQ PACK 880724 POTASSIUM CHLORIDE Inactive LISINOPRIL 5 MG TABS 1 by mouth every day LISINOPRIL 5 MG TABS 495389 LISINOPRIL Inactive COLCRYS 0.6 MG TABS 1 po q 6 hours prn gout pain 03/02 COLCRYS 0.6 MG TABS COLCHICINE Inactive JANUVIA 100 MG TABS 1/2 by mouth every day JANUVI A 100 MG TABS SITAGLIPTIN PHOSPHATE Inactive SIMVASTATIN 20 MG TABS 1 tab daily at bedtime SIMVASTATIN 20 MG TABS 140998 SIMVASTATIN Inactive COUMADIN 6 MG TABS 1 by mouth every other day COUMADIN 6 MG TABS 501733 WARFARIN SODIUM Inactive COUMADIN 5 MG TABS 1 by mouth every other day COUMADIN 5 MG TABS 019913 WARFARIN SODIUM Inactive LISINOPRIL 20 MG TABS 1 tab po at HS KOKI NOPRIL 20 MG TABS 574002 LISINOPRIL Inactive LISINOPRIL-HYDROCHLOROTHIAZIDE 20-12.5 MG TABS 1 tab by mouth da rocky LISINOPRIL-HYDROCHLOROTHIAZIDE 20-12.5 MG TABS 362198 LISINOPRIL-HYDROCHLOROTHIAZIDE Inactive POLYTRIM 67737-1.1 UNIT/ML-% SOLN 1 drop in affected e ye every 3 hours while awake x 7 days POLYTRIM 27027-7.1 UNIT/ML-% SOLN 06187 7 POLYMYXIN B-TRIMETHOPRIM Inactive COUMADIN 4 MG TABS 1 tablet daily COUMADIN 4 MG TABS 124289 WARFARIN SODIUM Inactive CLONIDINE HCL 0.1 MG TABS 1 po bid 7 days, then 1/2 tab po b id 7 days CLONIDINE HCL 0.1 MG TABS 894580 CLONIDINE HCL I nactive ALLOPURINOL 300 MG TABS Take 1 tablet by mouth daily 2 ALLOPURINOL 300 MG TABS 992940 ALLOPURINOL Inactive MECLIZINE HCL 25 MG TAB 1 po tid 3 days, then 1/2 tab tid 3 days MECLIZINE HCL 25 MG TAB 317176 MECLIZINE HCL Inactive LOVENOX 100 MG/ML SC SOLN One injection twice a day 09/15/15 LOVENOX 100 MG/ML SC SOLN 332143 ENOXAPARIN SODIUM Inactive Vital Signs Date Name [...] 6.9 % 4.3-6.0 cholesterol, serum 108 mg/dL 690-110 1871/11/01 triglyceride, serum, fasting 112 mg/dL 30-200 HDL [...] 1.0-3.5 Encounters Code Encounter Date Provider Facility CPT-55601 Level 3 Est. Patient 13:53:19 ABRASIVE GRADER Mitch luis [facility] CPT-50866 Level 3 Est. Patient 19:19:37 ABRASIVE GRADER Mitch W Nona luis [facility] CPT-67834 Level 3 Est. Patient 13:25:53 ABRASIVE GRADER Tavo toure MD [facility]-58230 Level 3 Est. Patient 18:17:28 CDT Mitch luis [facility] CPT-23084 Level 3 Est. Patient 15:22:57 CDT Mitch W L janelle [facility] CPT-29303 Level 3 Est. Patient 18:21:50 CDT Mitch W L janelle [facility] CPT-26231 Level 3 Est. Patient 18:20:38 CDT Mitch W L janelle [facility]-19756 Level 3 Est. Patient 15:37:55 CDT Mitch W L janelle [facility] CPT-15403 Level 2 Est. Patient 15:54:44 CDT Carmine benton MD [facility] CPT-82097 Level 3 Est. Patient 21:46:01 ABRASIVE GRADER Mitch luis [facility] CPT-63730 Level 3 Est. Patient 22:15:50 CDT Mitch luis [facility] CPT-89750 Level 3 Est. Patient 10:48:15 CDT Mitch luis [facility] CPT-29074 Level 3 Est. Patient 23:20:57 CDT Tavo toure MD [facility] CPT-90860 Level 3 Est. Patient 16:26:13 CDT Mitch luis [facility] Procedures Code Procedure Name Date Entry Date Standard Desc ription CPT-19545 Venipuncture Draw Fee 10:13:28 ABRASIVE GRADER CPT-62616 Venipuncture Draw Fee 08:31:11 CDT CPT-31604 Aspir/Inject Med Joint 18:17:28 CDT CPT-26947 Venipuncture Draw Fee 10:13:30 CDT CPT-54790 Venipuncture Draw Fee 08:31:43 ABRASIVE GRADER CPT-JTINJ Joint Injection 18:34:50 CDT CPT-02090 Knee 3V 12:25:09 CDT CPT-81077 Venipuncture Draw Fee 12:15:57 CDT CPT-060 Medical Surveillance Exam 21:31:43 CDT 2011 CPT-41565 Venipuncture Draw Fee 08:32:05 ABRASIVE GRADER CPT-OV Office Visit 18:19:06 CDT
--- OUTSIDE RECORDS SUMMARY | 2020-01-18 13:30 | XMS REPORT | Clinical Summary ---
Author Author Admin, Mitch Leon Organization [facility] Address Unknown Phone Allergies, Adverse Reactions, Alerts [...] (CURRENT) USE OF ANTICOAGULANTS V58.61 Activ e Karisas Trejo Long-term (current) use of anticoagulant s HEALTH MAINTENANCE EXAM V70.0 Active Mitch Meraz DO Routine general medical examination at a health care facility CORONARY HEART DISEASE 414.00 Active Mitch Urbina DO Coronary atherosclerosis of unspecified type of vessel, mcgrath or graft EDEMA 782.3 Active Mitch Kilpatrick [...] 1/2 tab tid 3 days MECLIZINE HCL 71752058138 No Longer Active Corey SEGURA Active ALLOPURINOL 300 MG TABS Take 1 tablet by mouth daily 2 ALLOPURINOL 99216393755 No Longer Active Corey SEGURA Activ e CLONIDINE HCL 0.1 MG TABS 1 po bid 7 days, then 1/2 tab po b id 7 days CLONIDINE HCL 29104360683 No Longer Active Corey SEGURA Active COUMADIN 5 MG TABS 1 tab PO daily WARFARIN SODIUM 15498062178 Active Mitch Urbina DO Active COUMADIN 4 MG TABS 1 tablet daily WARFARIN SODI UM 45465326715 No Longer Active Corey SEGURA Active POLYTRIM 42683-2.1 UNIT/ML-% SOLN 1 drop in affected e ye every 3 hours while awake x 7 days POLYMYXIN B-TRIMETHOPRIM 20640757407 N o Longer Active Corey SEGURA Active LOSARTAN POTASSIUM-HCTZ 100-12.5 MG TABS 1 by mouth da [place] for high blood pressure LOSARTAN POTASSIUM-HCTZ 90893025319 Active Stephy Urbina DO Active LISINOPRIL-HYDROCHLOROTHIAZIDE 20-12.5 MG TABS 1 tab by mouth da rocky LISINOPRIL-HYDROCHLOROTHIAZIDE 69690189939 No Longer Active Mitch luis DO Active LISINOPRIL 20 MG TABS 1 tab po at HS LISINOPRIL 26901634738 No Longer Active Mitch Urbina DO Active COUMADIN 5 MG TABS 1 by mouth every other day WARFARIN SODIUM 70701975728 No Longer Active Mitch Urbina DO Active COUMADIN 6 MG TABS 1 by mouth every other day WARFARIN SODIUM 39288134131 No Longer Active Mitch Urbina DO Active COLCRYS 0.6 MG TABS 1 tab qid prn gout COLCHICINE 34878091019 Active Mitch Urbina DO Active SIMVASTATIN 40 MG TABS 1 tab daily at bedtime S IMVASTATIN 30780023921 Active Mitch Urbina DO Active SIMVASTATIN 20 MG TABS 1 tab daily at bedtime S IMVASTATIN 27403859832 No Longer Active Mitch Urbina DO Active LOVENOX 100 MG/ML SC SOLN One injection twice a day 09/15/15 ENOXAPARIN SODIUM 90168672853 No Longer Active Carmine Navarrete ctive JANUVIA 50 MG TABS Take one by mouth daily DIEGO GLIPTIN PHOSPHATE 52240865591 Active Mitch Urbina DO Active JANUVIA 100 MG TABS 1/2 by mouth every day DIEGO GLIPTIN PHOSPHATE 54259974608 No Longer Active Bijalseth Segal RN Active METFORMIN HCL 500 MG TABS 2 by mouth twice daily METFORMIN HCL 71194474330 Active Curly Coker MD Active GLIMEPIRIDE 4 MG TABS 1 tab po bid GLIMEPIRIDE 819823 24111 Active Mitch Urbina DO Active COLCRYS 0.6 MG TABS 1 po q 6 hours prn gout pain 03/02 COLCHICINE 30251684041 No Longer Active Camila Hugh Active LISINOPRIL 5 MG TABS 1 by mouth every day LISIN OPRIL 05877155234 No Longer Active Nguyenmolly Perez Active KLOR-CON 20 MEQ PACK Take one by mouth daily 8 POTASSIUM CHLORIDE 21349496504 No Longer Active Nguyenmolly Perez Active FUROSEMIDE 40 MG TABS 1 by mouth daily FUROSEMI DE 64344692664 No Longer Active Nguyen Perez Active PROVIGIL 200 MG TABS 1/2 tab po q day MODAFINIL 88877 719794 Active Mitch Urbina DO Active PROVIGIL 100 MG TABS Take one by mouth daily MO DAFINIL 53051841724 No Longer Active Mitch Urbina DO Active BACTRIM DS 800-160 MG TAB 1 tab by mouth twice daily 2 TRIMETHOPRIM-SULFAMETHOXAZOLE 24186330328 No Longer Active Renan Hays MD Active FAMOTIDINE 20 MG TABS by mouth twice a day FAMOTI DINE 62927332287 Active Mitch Urbina DO Active ADULT ASPIRIN LOW STRENGTH 81 MG TBDP 1 by mouth every daily ASPIRIN 71951052224 Active Mitch Urbina DO Active METOPROLOL TARTRATE 50 MG TABS 1 by mouth twice daily METOPROLOL TARTRATE 95515560245 Active Mitch Urbina DO Active BACTRIM DS 800-160 MG TAB 1 tab by mouth twice daily 2 BACTRIM DS 800-160 MG TAB TRIMETHOPRIM-SULFAMETHOXAZOLE Inac tive PROVIGIL 100 MG TABS Take one by mouth daily 4 PROVIGIL 100 MG TABS 885068 MODAFINIL Inactive FUROSEMIDE 40 MG TABS 1 by mouth daily FU ROSEMIDE 40 MG TABS 127396 FUROSEMIDE Inactive KLOR-CON 20 MEQ PACK Take one by mouth daily 8 KLOR-CON 20 MEQ PACK 325151 POTASSIUM CHLORIDE Inactive LISINOPRIL 5 MG TABS 1 by mouth every day LISINOPRIL 5 MG TABS 907265 LISINOPRIL Inactive COLCRYS 0.6 MG TABS 1 po q 6 hours prn gout pain 03/02 COLCRYS 0.6 MG TABS COLCHICINE Inactive JANUVIA 100 MG TABS 1/2 by mouth every day JANUVI A 100 MG TABS SITAGLIPTIN PHOSPHATE Inactive SIMVASTATIN 20 MG TABS 1 tab daily at bedtime SIMVASTATIN 20 MG TABS 355728 SIMVASTATIN Inactive COUMADIN 6 MG TABS 1 by mouth every other day COUMADIN 6 MG TABS 967584 WARFARIN SODIUM Inactive COUMADIN 5 MG TABS 1 by mouth every other day COUMADIN 5 MG TABS 171749 WARFARIN SODIUM Inactive LISINOPRIL 20 MG TABS 1 tab po at HS KOKI NOPRIL 20 MG TABS 485610 LISINOPRIL Inactive LISINOPRIL-HYDROCHLOROTHIAZIDE 20-12.5 MG TABS 1 tab by mouth da rocky LISINOPRIL-HYDROCHLOROTHIAZIDE 20-12.5 MG TABS 382046 LISINOPRIL-HYDROCHLOROTHIAZIDE Inactive POLYTRIM 72408-3.1 UNIT/ML-% SOLN 1 drop in affected e ye every 3 hours while awake x 7 days POLYTRIM 67562-9.1 UNIT/ML-% SOLN 16814 7 POLYMYXIN B-TRIMETHOPRIM Inactive COUMADIN 4 MG TABS 1 tablet daily COUMADIN 4 MG TABS 401069 WARFARIN SODIUM Inactive CLONIDINE HCL 0.1 MG TABS 1 po bid 7 days, then 1/2 tab po b id 7 days CLONIDINE HCL 0.1 MG TABS 143117 CLONIDINE HCL I nactive ALLOPURINOL 300 MG TABS Take 1 tablet by mouth daily 2 ALLOPURINOL 300 MG TABS 040442 ALLOPURINOL Inactive MECLIZINE HCL 25 MG TAB 1 po tid 3 days, then 1/2 tab tid 3 days MECLIZINE HCL 25 MG TAB 748123 MECLIZINE HCL Inactive LOVENOX 100 MG/ML SC SOLN One injection twice a day 09/15/15 LOVENOX 100 MG/ML SC SOLN 721971 ENOXAPARIN SODIUM Inactive Vital Signs Date Name [...] 6.9 % 4.3-6.0 cholesterol, serum 108 mg/dL 136-792 1431/11/01 triglyceride, serum, fasting 112 mg/dL 30-200 HDL [...] 1.0-3.5 Encounters Code Encounter Date Provider Facility CPT-67719 Level 3 Est. Patient 13:53:19 QUARRYING MANAGER Mitch luis [facility] CPT-28466 Level 3 Est. Patient 19:19:37 QUARRYING MANAGER Mitch luis [facility] CPT-49850 Level 3 Est. Patient 13:25:53 QUARRYING MANAGER Tavo toure MD [facility] CPT-29803 Level 3 Est. Patient 18:17:28 CDT Mitch luis [facility] CPT-35505 Level 3 Est. Patient 15:22:57 CDT Mitch luis [facility] CPT-56028 Level 3 Est. Patient 18:21:50 CDT Mitch luis [facility] CPT-05834 Level 3 Est. Patient 18:20:38 CDT Mitch luis [facility] CPT-87165 Level 3 Est. Patient 15:37:55 CDT Mitch luis [facility] CPT-51426 Level 2 Est. Patient 15:54:44 CDT Carmine benton MD [facility] CPT-23089 Level 3 Est. Patient 21:46:01 QUARRYING MANAGER Mitch luis [facility] CPT-35814 Level 3 Est. Patient 22:15:50 CDT Mitch luis [facility] CPT-65325 Level 3 Est. Patient 10:48:15 CDT Mitch luis [facility] CPT-32055 Level 3 Est. Patient 23:20:57 CDT Tavo toure MD [facility] CPT-36223 Level 3 Est. Patient 16:26:13 CDT Mitch luis [facility] Procedures Code Procedure Name Date Entry Date Standard Desc ription CPT-73106 Venipuncture Draw Fee 10:13:28 QUARRYING MANAGER CPT-78285 Venipuncture Draw Fee 08:31:11 CDT CPT-16109 Aspir/Inject Med Joint 18:17:28 CDT CPT-34474 Venipuncture Draw Fee 10:13:30 CDT CPT-59844 Venipuncture Draw Fee 08:31:43 QUARRYING MANAGER CPT-JTINJ Joint Injection 18:34:50 CDT CPT-48949 Knee 3V 12:25:09 CDT CPT-66852 Venipuncture Draw Fee 12:15:57 CDT CPT-060 Medical Surveillance Exam 21:31:43 CDT 2011 CPT-47257 Venipuncture Draw Fee 08:32:05 QUARRYING MANAGER CPT-OV Office Visit 18:19:06 CDT
--- OUTSIDE RECORDS SUMMARY | 2020-01-18 13:30 | XMS REPORT | Clinical Summary ---
Author Author Admin, Mitch Leon Organization [facility] Address Unknown Phone Unavailable Allergies, Adverse Reactions, [...] Coronary atherosclerosis of unspecified type of vessel, nisqually or graft EDEMA 782.3 Active Mitch Urbina [...] 1/2 tab tid 3 days MECLIZINE HCL 38977497192 No Longer Active Corey SEGURA Active ALLOPURINOL 300 MG TABS Take 1 tablet by mouth daily 2 ALLOPURINOL 90411408809 No Longer Active Corey SEGURA Activ e CLONIDINE HCL 0.1 MG TABS 1 po bid 7 days, then 1/2 tab po b id 7 days CLONIDINE HCL 35128643003 No Longer Active Corey SEGURA Active COUMADIN 5 MG TABS 1 tab PO daily WARFARIN SODIUM 29627349365 Active Mitch Urbina DO Active COUMADIN 4 MG TABS 1 tablet daily WARFARIN SODI UM 45562118004 No Longer Active Corey SEGURA Active POLYTRIM 65683-5.1 UNIT/ML-% SOLN 1 drop in affected e ye every 3 hours while awake x 7 days POLYMYXIN B-TRIMETHOPRIM 61357400149 N o Longer Active Corey SEGURA Active LOSARTAN POTASSIUM-HCTZ 100-12.5 MG TABS 1 by mouth da rocky for high blood pressure LOSARTAN POTASSIUM-HCTZ 28643592651 Active Stephy Urbina DO Active LISINOPRIL-HYDROCHLOROTHIAZIDE 20-12.5 MG TABS 1 tab by mouth da rocky LISINOPRIL-HYDROCHLOROTHIAZIDE 33456215673 No Longer Active Mitch luis DO Active LISINOPRIL 20 MG TABS 1 tab po at HS LISINOPRIL 91703366209 No Longer Active Mitch Urbina DO Active COUMADIN 5 MG TABS 1 by mouth every other day WARFARIN SODIUM 28592937186 No Longer Active Mitch Urbina DO Active COUMADIN 6 MG TABS 1 by mouth every other day WARFARIN SODIUM 59167527221 No Longer Active Mitch Urbina DO Active COLCRYS 0.6 MG TABS 1 tab qid prn gout COLCHICINE 50873949274 Active Mitch Urbina DO Active SIMVASTATIN 40 MG TABS 1 tab daily at bedtime S IMVASTATIN 22449326631 Active Mitch Urbina DO Active SIMVASTATIN 20 MG TABS 1 tab daily at bedtime S IMVASTATIN 42139690381 No Longer Active Mitch Urbina DO Active LOVENOX 100 MG/ML SC SOLN One injection twice a day 09/15/15 ENOXAPARIN SODIUM 57901788816 No Longer Active Carmine Navarrete ctive JANUVIA 50 MG TABS Take one by mouth daily DIEGO GLIPTIN PHOSPHATE 27886408070 Active Mitch Urbina DO Active JANUVIA 100 MG TABS 1/2 by mouth every day DIEGO GLIPTIN PHOSPHATE 34935859397 No Longer Active Bijal Philipp RN Active METFORMIN HCL 500 MG TABS 2 by mouth twice daily METFORMIN HCL 82084848506 Active Mitch Urbina DO Active GLIMEPIRIDE 4 MG TABS 1 tab po bid GLIMEPIRIDE 377941 70213 Active Mitch Urbina DO Active COLCRYS 0.6 MG TABS 1 po q 6 hours prn gout pain 03/02 COLCHICINE 41250379217 No Longer Active Camila [place] Active LISINOPRIL 5 MG TABS 1 by mouth every day LISIN OPRIL 51177320299 No Longer Active Nguyenmolly Perez Active KLOR-CON 20 MEQ PACK Take one by mouth daily 8 POTASSIUM CHLORIDE 80675766413 No Longer Active Nguyenmolly Perez Active FUROSEMIDE 40 MG TABS 1 by mouth daily FUROSEMI DE 57932388611 No Longer Active Nguyen Perez Active PROVIGIL 200 MG TABS 1/2 tab po q day MODAFINIL 35673 766308 Active Mitch Urbina DO Active PROVIGIL 100 MG TABS Take one by mouth daily MO DAFINIL 61190791403 No Longer Active Mitch Urbina DO Active BACTRIM DS 800-160 MG TAB 1 tab by mouth twice daily 2 TRIMETHOPRIM-SULFAMETHOXAZOLE 84162696393 No Longer Active Renan Hays MD Active FAMOTIDINE 20 MG TABS by mouth twice a day FAMOTI DINE 43968041834 Active Mitch Urbina DO Active ADULT ASPIRIN LOW STRENGTH 81 MG TBDP 1 by mouth every daily ASPIRIN 19597455839 Active Mitch Urbina DO Active METOPROLOL TARTRATE 50 MG TABS 1 by mouth twice daily METOPROLOL TARTRATE 76774175358 Active Mitch Urbina DO Active BACTRIM DS 800-160 MG TAB 1 tab by mouth twice daily 2 BACTRIM DS 800-160 MG TAB TRIMETHOPRIM-SULFAMETHOXAZOLE Inac tive PROVIGIL 100 MG TABS Take one by mouth daily 4 PROVIGIL 100 MG TABS 644962 MODAFINIL Inactive FUROSEMIDE 40 MG TABS 1 by mouth daily FU ROSEMIDE 40 MG TABS 346710 FUROSEMIDE Inactive KLOR-CON 20 MEQ PACK Take one by mouth daily 8 KLOR-CON 20 MEQ PACK 835979 POTASSIUM CHLORIDE Inactive LISINOPRIL 5 MG TABS 1 by mouth every day LISINOPRIL 5 MG TABS 464104 LISINOPRIL Inactive COLCRYS 0.6 MG TABS 1 po q 6 hours prn gout pain 03/02 COLCRYS 0.6 MG TABS COLCHICINE Inactive JANUVIA 100 MG TABS 1/2 by mouth every day JANUVI A 100 MG TABS SITAGLIPTIN PHOSPHATE Inactive SIMVASTATIN 20 MG TABS 1 tab daily at bedtime SIMVASTATIN 20 MG TABS 025222 SIMVASTATIN Inactive COUMADIN 6 MG TABS 1 by mouth every other day COUMADIN 6 MG TABS 647274 WARFARIN SODIUM Inactive COUMADIN 5 MG TABS 1 by mouth every other day COUMADIN 5 MG TABS 636083 WARFARIN SODIUM Inactive LISINOPRIL 20 MG TABS 1 tab po at HS KOKI NOPRIL 20 MG TABS 076899 LISINOPRIL Inactive LISINOPRIL-HYDROCHLOROTHIAZIDE 20-12.5 MG TABS 1 tab by mouth da [place] LISINOPRIL-HYDROCHLOROTHIAZIDE 20-12.5 MG TABS 296417 LISINOPRIL-HYDROCHLOROTHIAZIDE Inactive POLYTRIM 65623-0.1 UNIT/ML-% SOLN 1 drop in affected e ye every 3 hours while awake x 7 days POLYTRIM 01644-2.1 UNIT/ML-% SOLN 41680 7 POLYMYXIN B-TRIMETHOPRIM Inactive COUMADIN 4 MG TABS 1 tablet daily COUMADIN 4 MG TABS 705438 WARFARIN SODIUM Inactive CLONIDINE HCL 0.1 MG TABS 1 po bid 7 days, then 1/2 tab po b id 7 days CLONIDINE HCL 0.1 MG TABS 910423 CLONIDINE HCL I nactive ALLOPURINOL 300 MG TABS Take 1 tablet by mouth daily 2 ALLOPURINOL 300 MG TABS 990457 ALLOPURINOL Inactive MECLIZINE HCL 25 MG TAB 1 po tid 3 days, then 1/2 tab tid 3 days MECLIZINE HCL 25 MG TAB 717936 MECLIZINE HCL Inactive LOVENOX 100 MG/ML SC SOLN One injection twice a day 09/15/15 LOVENOX 100 MG/ML SC SOLN 206756 ENOXAPARIN SODIUM Inactive Vital Signs Date Name [...] 10.3 mg/dL 2.6-7.2 sodium, serum 136 mmol/L 149-357 8712/07/25 potassium, serum 4.6 mmol/L 3.5-5.2 chloride, serum [...] 6.9 % 4.3-6.0 cholesterol, serum 108 mg/dL 767-737 1088/11/01 triglyceride, serum, fasting 112 mg/dL 30-200 HDL [...] 1.0-3.5 Encounters Code Encounter Date Provider Facility CPT-57523 Level 3 Est. Patient 13:53:19 VETERINARY TECHNOLOGIST Mitch luis [facility] CPT-82569 Level 3 Est. Patient 19:19:37 VETERINARY TECHNOLOGIST Mitch luis [facility] CPT-89731 Level 3 Est. Patient 13:25:53 VETERINARY TECHNOLOGIST Tavo toure MD [facility] CPT-64983 Level 3 Est. Patient 18:17:28 CDT Mitch luis [facility] CPT-63345 Level 3 Est. Patient 15:22:57 CDT Mitch luis [facility] CPT-64664 Level 3 Est. Patient 18:21:50 CDT Mitch luis [facility] CPT-05075 Level 3 Est. Patient 18:20:38 CDT Mitch luis [facility] CPT-70696 Level 3 Est. Patient 15:37:55 CDT Mitch luis [facility] CPT-69121 Level 2 Est. Patient 15:54:44 CDT Carmine benton MD [facility] CPT-43050 Level 3 Est. Patient 21:46:01 VETERINARY TECHNOLOGIST Mitch luis [facility] CPT-04066 Level 3 Est. Patient 22:15:50 CDT Mitch luis [facility] CPT-27095 Level 3 Est. Patient 10:48:15 CDT Mitch luis [facility] CPT-72951 Level 3 Est. Patient 23:20:57 CDT Tavo toure MD [facility] CPT-29101 Level 3 Est. Patient 16:26:13 CDT Mitch luis [facility] Procedures Code Procedure Name Date Entry Date Standard Desc ription CPT-16468 Venipuncture Draw Fee 10:13:28 VETERINARY TECHNOLOGIST CPT-74963 Venipuncture Draw Fee 08:31:11 CDT CPT-02212 Aspir/Inject Med Joint 18:17:28 CDT CPT-85561 Venipuncture Draw Fee 10:13:30 CDT CPT-22006 Venipuncture Draw Fee 08:31:43 VETERINARY TECHNOLOGIST CPT-JTINJ Joint Injection 18:34:50 CDT CPT-07576 Knee 3V 12:25:09 CDT CPT-12899 Venipuncture Draw Fee 12:15:57 CDT CPT-060 Medical Surveillance Exam 21:31:43 CDT 2011 CPT-55801 Venipuncture Draw Fee 08:32:05 VETERINARY TECHNOLOGIST CPT-OV Office Visit 18:19:06 CDT
--- OUTSIDE RECORDS SUMMARY | 2020-01-18 13:30 | XMS REPORT | Clinical Summary ---
Author Author Admin, Mitch Leon Organization [facility] Address Unknown Phone Unavailable Allergies, Adverse [...] 1/2 tab tid 3 days MECLIZINE HCL 25726694964 No Longer Active Corey SEGURA Active ALLOPURINOL 300 MG TABS Take 1 tablet by mouth daily 2 ALLOPURINOL 63763467616 No Longer Active Corey SEGURA Activ e CLONIDINE HCL 0.1 MG TABS 1 po bid 7 days, then 1/2 tab po b id 7 days CLONIDINE HCL 09217689778 No Longer Active Corey SEGURA Active COUMADIN 5 MG TABS 1 tab PO daily WARFARIN SODIUM 62278326154 Active Mitch Urbina DO Active COUMADIN 4 MG TABS 1 tablet daily WARFARIN SODI UM 71298706900 No Longer Active Corey SEGURA Active POLYTRIM 50475-1.1 UNIT/ML-% SOLN 1 drop in affected e ye every 3 hours while awake x 7 days POLYMYXIN B-TRIMETHOPRIM 80438550685 N o Longer Active Corey SEGURA Active LOSARTAN POTASSIUM-HCTZ 100-12.5 MG TABS 1 by mouth da [place] for high blood pressure LOSARTAN POTASSIUM-HCTZ 39275736308 Active Stephy Urbina DO Active LISINOPRIL-HYDROCHLOROTHIAZIDE 20-12.5 MG TABS 1 tab by mouth da rocky LISINOPRIL-HYDROCHLOROTHIAZIDE 10938425238 No Longer Active Mitch luis DO Active LISINOPRIL 20 MG TABS 1 tab po at HS LISINOPRIL 55107812527 No Longer Active Mitch Urbina DO Active COUMADIN 5 MG TABS 1 by mouth every other day WARFARIN SODIUM 99337615140 No Longer Active Mitch Urbina DO Active COUMADIN 6 MG TABS 1 by mouth every other day WARFARIN SODIUM 48665396866 No Longer Active Mitch Urbina DO Active COLCRYS 0.6 MG TABS 1 tab qid prn gout COLCHICINE 75214848310 Active Mitch Urbina DO Active SIMVASTATIN 40 MG TABS 1 tab daily at bedtime S IMVASTATIN 74741019689 Active Mitch Urbina DO Active SIMVASTATIN 20 MG TABS 1 tab daily at bedtime S IMVASTATIN 61209554131 No Longer Active Mitch Urbina DO Active LOVENOX 100 MG/ML SC SOLN One injection twice a day 09/15/15 ENOXAPARIN SODIUM 09735448859 No Longer Active Carmine Navarrete ctive JANUVIA 50 MG TABS Take one by mouth daily DIEGO GLIPTIN PHOSPHATE 15461594366 Active Mitch Urbina DO Active JANUVIA 100 MG TABS 1/2 by mouth every day DIEGO GLIPTIN PHOSPHATE 00403440677 No Longer Active Bijalseth Segal RN Active METFORMIN HCL 500 MG TABS 2 by mouth twice daily METFORMIN HCL 61726814624 Active Mitch Urbina DO Active GLIMEPIRIDE 4 MG TABS 1 tab po bid GLIMEPIRIDE 688192 87473 Active Mitch Urbina DO Active COLCRYS 0.6 MG TABS 1 po q 6 hours prn gout pain 03/02 COLCHICINE 35636027410 No Longer Active Camila Hugh Active LISINOPRIL 5 MG TABS 1 by mouth every day LISIN OPRIL 09101630337 No Longer Active Nguyenmolly Perez Active KLOR-CON 20 MEQ PACK Take one by mouth daily 8 POTASSIUM CHLORIDE 00758766415 No Longer Active Nguyenmolly Perez Active FUROSEMIDE 40 MG TABS 1 by mouth daily FUROSEMI DE 76312492699 No Longer Active Nguyen Perez Active PROVIGIL 200 MG TABS 1/2 tab po q day MODAFINIL 89794 795416 Active Mitch Urbina DO Active PROVIGIL 100 MG TABS Take one by mouth daily MO DAFINIL 54752577640 No Longer Active Mitch Urbina DO Active BACTRIM DS 800-160 MG TAB 1 tab by mouth twice daily 2 TRIMETHOPRIM-SULFAMETHOXAZOLE 93339280814 No Longer Active Renan Hays MD Active FAMOTIDINE 20 MG TABS by mouth twice a day FAMOTI DINE 94509410034 Active Mitch Urbina DO Active ADULT ASPIRIN LOW STRENGTH 81 MG TBDP 1 by mouth every daily ASPIRIN 28241082284 Active Mitch Urbina DO Active METOPROLOL TARTRATE 50 MG TABS 1 by mouth twice daily METOPROLOL TARTRATE 72374769418 Active Mitch Urbina DO Active BACTRIM DS 800-160 MG TAB 1 tab by mouth twice daily 2 BACTRIM DS 800-160 MG TAB TRIMETHOPRIM-SULFAMETHOXAZOLE Inac tive PROVIGIL 100 MG TABS Take one by mouth daily 4 PROVIGIL 100 MG TABS 832524 MODAFINIL Inactive FUROSEMIDE 40 MG TABS 1 by mouth daily FU ROSEMIDE 40 MG TABS 831352 FUROSEMIDE Inactive KLOR-CON 20 MEQ PACK Take one by mouth daily 8 KLOR-CON 20 MEQ PACK 261424 POTASSIUM CHLORIDE Inactive LISINOPRIL 5 MG TABS 1 by mouth every day LISINOPRIL 5 MG TABS 985708 LISINOPRIL Inactive COLCRYS 0.6 MG TABS 1 po q 6 hours prn gout pain 03/02 COLCRYS 0.6 MG TABS COLCHICINE Inactive JANUVIA 100 MG TABS 1/2 by mouth every day JANUVI A 100 MG TABS SITAGLIPTIN PHOSPHATE Inactive SIMVASTATIN 20 MG TABS 1 tab daily at bedtime SIMVASTATIN 20 MG TABS 408091 SIMVASTATIN Inactive COUMADIN 6 MG TABS 1 by mouth every other day COUMADIN 6 MG TABS 756974 WARFARIN SODIUM Inactive COUMADIN 5 MG TABS 1 by mouth every other day COUMADIN 5 MG TABS 631173 WARFARIN SODIUM Inactive LISINOPRIL 20 MG TABS 1 tab po at HS KOKI NOPRIL 20 MG TABS 394987 LISINOPRIL Inactive LISINOPRIL-HYDROCHLOROTHIAZIDE 20-12.5 MG TABS 1 tab by mouth da rocky LISINOPRIL-HYDROCHLOROTHIAZIDE 20-12.5 MG TABS 340793 LISINOPRIL-HYDROCHLOROTHIAZIDE Inactive POLYTRIM 74543-2.1 UNIT/ML-% SOLN 1 drop in affected e ye every 3 hours while awake x 7 days POLYTRIM 65410-4.1 UNIT/ML-% SOLN 40927 7 POLYMYXIN B-TRIMETHOPRIM Inactive COUMADIN 4 MG TABS 1 tablet daily COUMADIN 4 MG TABS 142847 WARFARIN SODIUM Inactive CLONIDINE HCL 0.1 MG TABS 1 po bid 7 days, then 1/2 tab po b id 7 days CLONIDINE HCL 0.1 MG TABS 290249 CLONIDINE HCL I nactive ALLOPURINOL 300 MG TABS Take 1 tablet by mouth daily 2 ALLOPURINOL 300 MG TABS 504631 ALLOPURINOL Inactive MECLIZINE HCL 25 MG TAB 1 po tid 3 days, then 1/2 tab tid 3 days MECLIZINE HCL 25 MG TAB 088515 MECLIZINE HCL Inactive LOVENOX 100 MG/ML SC SOLN One injection twice a day 09/15/15 LOVENOX 100 MG/ML SC SOLN 442048 ENOXAPARIN SODIUM Inactive Vital Signs Date Name [...] 10.3 mg/dL 2.6-7.2 sodium, serum 136 mmol/L 367-009 1779/07/25 potassium, serum 4.6 mmol/L 3.5-5.2 chloride, serum [...] 6.9 % 4.3-6.0 cholesterol, serum 108 mg/dL 789-314 0343/11/01 triglyceride, serum, fasting 112 mg/dL 30-200 HDL [...] 1.0-3.5 Encounters Code Encounter Date Provider Facility CPT-26270 Level 3 Est. Patient 13:53:19 NETWORK SECURITY CONSULTANT Mitch luis [facility] CPT-46183 Level 3 Est. Patient 19:19:37 NETWORK SECURITY CONSULTANT Mitch luis [facility] CPT-65439 Level 3 Est. Patient 13:25:53 NETWORK SECURITY CONSULTANT Tavo toure MD [facility] CPT-78324 Level 3 Est. Patient 18:17:28 CDT Mitch luis [facility] CPT-34187 Level 3 Est. Patient 15:22:57 CDT Mitch luis [facility] CPT-22015 Level 3 Est. Patient 18:21:50 CDT Mitch luis [facility] CPT-33114 Level 3 Est. Patient 18:20:38 CDT Mitch luis [facility] CPT-12955 Level 3 Est. Patient 15:37:55 CDT Mitch luis [facility] CPT-30519 Level 2 Est. Patient 15:54:44 CDT Carmine benton MD [facility] CPT-24580 Level 3 Est. Patient 21:46:01 NETWORK SECURITY CONSULTANT Mitch luis [facility] CPT-99081 Level 3 Est. Patient 22:15:50 CDT Mitch luis [facility] CPT-52974 Level 3 Est. Patient 10:48:15 CDT Mitch luis [facility] CPT-86523 Level 3 Est. Patient 23:20:57 CDT Tavo toure MD [facility] CPT-28220 Level 3 Est. Patient 16:26:13 CDT Mitch luis [facility] Procedures Code Procedure Name Date Entry Date Standard Desc ription CPT-16394 Venipuncture Draw Fee 10:13:28 NETWORK SECURITY CONSULTANT CPT-48565 Venipuncture Draw Fee 08:31:11 CDT CPT-27510 Aspir/Inject Med Joint 18:17:28 CDT CPT-36631 Venipuncture Draw Fee 10:13:30 CDT CPT-11658 Venipuncture Draw Fee 08:31:43 NETWORK SECURITY CONSULTANT CPT-JTINJ Joint Injection 18:34:50 CDT CPT-63745 Knee 3V 12:25:09 CDT CPT-09666 Venipuncture Draw Fee 12:15:57 CDT CPT-060 Medical Surveillance Exam 21:31:43 CDT 2011 CPT-37020 Venipuncture Draw Fee 08:32:05 NETWORK SECURITY CONSULTANT CPT-OV Office Visit 18:19:06 CDT
--- OUTSIDE RECORDS SUMMARY | 2020-01-18 13:30 | XMS REPORT | Clinical Summary ---
[...] Coronary atherosclerosis of unspecified type of vessel, [place] or graft EDEMA 782.3 Active Mitch Urbina [...] 1/2 tab tid 3 days MECLIZINE HCL 62121507444 No Longer Active Corey SEGURA Active ALLOPURINOL 300 MG TABS Take 1 tablet by mouth daily 2 ALLOPURINOL 91598245912 No Longer Active Corey SEGURA Activ e CLONIDINE HCL 0.1 MG TABS 1 po bid 7 days, then 1/2 tab po b id 7 days CLONIDINE HCL 71733255895 No Longer Active Corey SEGURA Active COUMADIN 5 MG TABS 1 tab PO daily WARFARIN SODIUM 03128303318 Active Mitch Urbina DO Active COUMADIN 4 MG TABS 1 tablet daily WARFARIN SODI UM 36325961323 No Longer Active Corey SEGURA Active POLYTRIM 67015-8.1 UNIT/ML-% SOLN 1 drop in affected e ye every 3 hours while awake x 7 days POLYMYXIN B-TRIMETHOPRIM 98824631207 N o Longer Active Corey SEGURA Active LOSARTAN POTASSIUM-HCTZ 100-12.5 MG TABS 1 by mouth da [place] for high blood pressure LOSARTAN POTASSIUM-HCTZ 56997528787 Active Stephy Urbina DO Active LISINOPRIL-HYDROCHLOROTHIAZIDE 20-12.5 MG TABS 1 tab by mouth da rocky LISINOPRIL-HYDROCHLOROTHIAZIDE 80819300711 No Longer Active Mitch luis DO Active LISINOPRIL 20 MG TABS 1 tab po at HS LISINOPRIL 60760362405 No Longer Active Mitch Urbina DO Active COUMADIN 5 MG TABS 1 by mouth every other day WARFARIN SODIUM 12584579436 No Longer Active Mitch Urbina DO Active COUMADIN 6 MG TABS 1 by mouth every other day WARFARIN SODIUM 43259152877 No Longer Active Mitch Urbina DO Active COLCRYS 0.6 MG TABS 1 tab qid prn gout COLCHICINE 05866893673 Active Mitch Urbina DO Active SIMVASTATIN 40 MG TABS 1 tab daily at bedtime S IMVASTATIN 04980388208 Active Mitch Urbina DO Active SIMVASTATIN 20 MG TABS 1 tab daily at bedtime S IMVASTATIN 11105365518 No Longer Active Mitch Urbina DO Active LOVENOX 100 MG/ML SC SOLN One injection twice a day 09/15/15 ENOXAPARIN SODIUM 79751293157 No Longer Active Carmine Navarrete ctive JANUVIA 50 MG TABS Take one by mouth daily DIEGO GLIPTIN PHOSPHATE 71945798714 Active Mitch Urbina DO Active JANUVIA 100 MG TABS 1/2 by mouth every day DIEGO GLIPTIN PHOSPHATE 42624057184 No Longer Active Bijal Philipp RN Active METFORMIN HCL 500 MG TABS 2 by mouth twice daily METFORMIN HCL 53043647523 Active Mitch Urbina DO Active GLIMEPIRIDE 4 MG TABS 1 tab po bid GLIMEPIRIDE 653787 65475 Active Mitch Urbina DO Active COLCRYS 0.6 MG TABS 1 po q 6 hours prn gout pain 03/02 COLCHICINE 57327568279 No Longer Active Camila Hugh Active LISINOPRIL 5 MG TABS 1 by mouth every day LISIN OPRIL 74593099449 No Longer Active Nguyenmolly Perez Active KLOR-CON 20 MEQ PACK Take one by mouth daily 8 POTASSIUM CHLORIDE 63936205162 No Longer Active Nguyenmolly Perez Active FUROSEMIDE 40 MG TABS 1 by mouth daily FUROSEMI DE 37523774969 No Longer Active Nguyen Perez Active PROVIGIL 200 MG TABS 1/2 tab po q day MODAFINIL 99197 472849 Active Mitch Urbina DO Active PROVIGIL 100 MG TABS Take one by mouth daily MO DAFINIL 07162027663 No Longer Active Mitch Urbina DO Active BACTRIM DS 800-160 MG TAB 1 tab by mouth twice daily 2 TRIMETHOPRIM-SULFAMETHOXAZOLE 23597851490 No Longer Active Renan Hays MD Active FAMOTIDINE 20 MG TABS by mouth twice a day FAMOTI DINE 52487422206 Active Mitch Urbina DO Active ADULT ASPIRIN LOW STRENGTH 81 MG TBDP 1 by mouth every daily ASPIRIN 24105292549 Active Mitch Urbina DO Active METOPROLOL TARTRATE 50 MG TABS 1 by mouth twice daily METOPROLOL TARTRATE 75723974688 Active Mitch Urbina DO Active BACTRIM DS 800-160 MG TAB 1 tab by mouth twice daily 2 BACTRIM DS 800-160 MG TAB TRIMETHOPRIM-SULFAMETHOXAZOLE Inac tive PROVIGIL 100 MG TABS Take one by mouth daily 4 PROVIGIL 100 MG TABS 891906 MODAFINIL Inactive FUROSEMIDE 40 MG TABS 1 by mouth daily FU ROSEMIDE 40 MG TABS 002260 FUROSEMIDE Inactive KLOR-CON 20 MEQ PACK Take one by mouth daily 8 KLOR-CON 20 MEQ PACK 389932 POTASSIUM CHLORIDE Inactive LISINOPRIL 5 MG TABS 1 by mouth every day LISINOPRIL 5 MG TABS 349171 LISINOPRIL Inactive COLCRYS 0.6 MG TABS 1 po q 6 hours prn gout pain 03/02 COLCRYS 0.6 MG TABS COLCHICINE Inactive JANUVIA 100 MG TABS 1/2 by mouth every day JANUVI A 100 MG TABS SITAGLIPTIN PHOSPHATE Inactive SIMVASTATIN 20 MG TABS 1 tab daily at bedtime SIMVASTATIN 20 MG TABS 988858 SIMVASTATIN Inactive COUMADIN 6 MG TABS 1 by mouth every other day COUMADIN 6 MG TABS 533861 WARFARIN SODIUM Inactive COUMADIN 5 MG TABS 1 by mouth every other day COUMADIN 5 MG TABS 026784 WARFARIN SODIUM Inactive LISINOPRIL 20 MG TABS 1 tab po at HS KOKI NOPRIL 20 MG TABS 244333 LISINOPRIL Inactive LISINOPRIL-HYDROCHLOROTHIAZIDE 20-12.5 MG TABS 1 tab by mouth da rocky LISINOPRIL-HYDROCHLOROTHIAZIDE 20-12.5 MG TABS 259497 LISINOPRIL-HYDROCHLOROTHIAZIDE Inactive POLYTRIM 24041-5.1 UNIT/ML-% SOLN 1 drop in affected e ye every 3 hours while awake x 7 days POLYTRIM 70290-4.1 UNIT/ML-% SOLN 54499 7 POLYMYXIN B-TRIMETHOPRIM Inactive COUMADIN 4 MG TABS 1 tablet daily COUMADIN 4 MG TABS 773322 WARFARIN SODIUM Inactive CLONIDINE HCL 0.1 MG TABS 1 po bid 7 days, then 1/2 tab po b id 7 days CLONIDINE HCL 0.1 MG TABS 087357 CLONIDINE HCL I nactive ALLOPURINOL 300 MG TABS Take 1 tablet by mouth daily 2 ALLOPURINOL 300 MG TABS 340588 ALLOPURINOL Inactive MECLIZINE HCL 25 MG TAB 1 po tid 3 days, then 1/2 tab tid 3 days MECLIZINE HCL 25 MG TAB 046642 MECLIZINE HCL Inactive LOVENOX 100 MG/ML SC SOLN One injection twice a day 09/15/15 LOVENOX 100 MG/ML SC SOLN 286136 ENOXAPARIN SODIUM Inactive Vital Signs Date Name [...] international normalized ratio (INR) coagulation managed by Mtich Urbina international normalized ratio (INR) international normalized ratio (INR) coagulation managed by Mitch Urbina DO international normalized ratio (INR) coagulation managed by Mitch Urbina DO Lab Report: CBC, Comp. Metabolic Panel, HGBA1C, MICROALBUMIN, Uric Acid - Chemistry sodium, serum 136 mmol/L 049-965 3376/07/25 potassium, serum 4.6 mmol/L 3.5-5.2 chloride, serum [...] 6.9 % 4.3-6.0 cholesterol, serum 108 mg/dL 585-618 8881/11/01 triglyceride, serum, fasting 112 mg/dL 30-200 HDL [...] 1.0-3.5 Encounters Code Encounter Date Provider Facility CPT-23363 Level 3 Est. Patient 13:53:19 INSPECTOR TYPE Mitch luis [facility] CPT-08252 Level 3 Est. Patient 19:19:37 INSPECTOR TYPE Mitch luis [facility] CPT-95484 Level 3 Est. Patient 13:25:53 INSPECTOR TYPE Tavo toure MD [facility] CPT-97253 Level 3 Est. Patient 18:17:28 CDT Mitch luis [facility] CPT-48192 Level 3 Est. Patient 15:22:57 CDT Mitch luis [facility] CPT-35933 Level 3 Est. Patient 18:21:50 CDT Mitch luis [facility] CPT-40441 Level 3 Est. Patient 18:20:38 CDT Mitch luis [facility] CPT-67014 Level 3 Est. Patient 15:37:55 CDT Mitch luis [facility] CPT-74397 Level 2 Est. Patient 15:54:44 CDT Carmine benton MD [facility] CPT-79982 Level 3 Est. Patient 21:46:01 INSPECTOR TYPE Mitch luis [facility] CPT-23549 Level 3 Est. Patient 22:15:50 CDT Mitch luis [facility] CPT-98232 Level 3 Est. Patient 10:48:15 CDT Mitch luis [facility] CPT-73286 Level 3 Est. Patient 23:20:57 CDT Tavo toure MD [facility] CPT-21299 Level 3 Est. Patient 16:26:13 CDT Mitch luis [facility] Procedures Code Procedure Name Date Entry Date Standard Desc ription CPT-70698 Venipuncture Draw Fee 10:13:28 INSPECTOR TYPE CPT-98845 Venipuncture Draw Fee 08:31:11 CDT CPT-25130 Aspir/Inject Med Joint 18:17:28 CDT CPT-24537 Venipuncture Draw Fee 10:13:30 CDT CPT-02429 Venipuncture Draw Fee 08:31:43 INSPECTOR TYPE CPT-JTINJ Joint Injection 18:34:50 CDT CPT-61019 Knee 3V 12:25:09 CDT CPT-58935 Venipuncture Draw Fee 12:15:57 CDT CPT-060 Medical Surveillance Exam 21:31:43 CDT 2011 CPT-43296 Venipuncture Draw Fee 08:32:05 INSPECTOR TYPE CPT-OV Office Visit 18:19:06 CDT
--- OUTSIDE RECORDS SUMMARY | 2020-01-18 13:30 | XMS REPORT | Clinical Summary ---
[...] atherosclerosis of unspecified type of vessel, port heiden or graft EDEMA 782.3 Active Mitch Urbina [...] 1 tablet by mouth daily AMLODIPINE BESYLATE 06929625144 Active Mitch Urbina DO Active MECLIZINE HCL 25 MG TAB 1 po tid 3 days, then 1/2 tab tid 3 days MECLIZINE HCL 08937448109 No Longer Active Corey SEGURA Active ALLOPURINOL 300 MG TABS Take 1 tablet by mouth daily 2 ALLOPURINOL 37627324824 No Longer Active Corey SEGURA Activ e CLONIDINE HCL 0.1 MG TABS 1 po bid 7 days, then 1/2 tab po b id 7 days CLONIDINE HCL 80930257075 No Longer Active Corey SEGURA Active COUMADIN 5 MG TABS 1 tab PO daily WARFARIN SODIUM 63378656574 Active Mitch Urbina DO Active COUMADIN 4 MG TABS 1 tablet daily WARFARIN SODI UM 38216307555 No Longer Active Corey SEGURA Active POLYTRIM 01134-7.1 UNIT/ML-% SOLN 1 drop in affected e ye every 3 hours while awake x 7 days POLYMYXIN B-TRIMETHOPRIM 82743762446 N o Longer Active Corey SEGURA Active LOSARTAN POTASSIUM-HCTZ 100-12.5 MG TABS 1 by mouth da rocky for high blood pressure LOSARTAN POTASSIUM-HCTZ 98931194410 Active Stephy Urbina DO Active LISINOPRIL-HYDROCHLOROTHIAZIDE 20-12.5 MG TABS 1 tab by mouth da rocky LISINOPRIL-HYDROCHLOROTHIAZIDE 04088622988 No Longer Active Mitch luis DO Active LISINOPRIL 20 MG TABS 1 tab po at HS LISINOPRIL 27893957571 No Longer Active Mitch Urbina DO Active COUMADIN 5 MG TABS 1 by mouth every other day WARFARIN SODIUM 63915720614 No Longer Active Mitch Urbina DO Active COUMADIN 6 MG TABS 1 by mouth every other day WARFARIN SODIUM 60572489655 No Longer Active Mitch Urbina DO Active COLCRYS 0.6 MG TABS 1 tab qid prn gout COLCHICINE 51967318154 Active Mitch Urbina DO Active SIMVASTATIN 40 MG TABS 1 tab daily at bedtime S IMVASTATIN 37668854225 Active Mitch Urbina DO Active SIMVASTATIN 20 MG TABS 1 tab daily at bedtime S IMVASTATIN 51806113912 No Longer Active Mitch Urbina DO Active LOVENOX 100 MG/ML SC SOLN One injection twice a day 09/15/15 ENOXAPARIN SODIUM 28899022408 No Longer Active Carmine Navarrete ctive JANUVIA 50 MG TABS Take one by mouth daily DIEGO GLIPTIN PHOSPHATE 07292651446 Active Mitch Urbina DO Active JANUVIA 100 MG TABS 1/2 by mouth every day DIEGO GLIPTIN PHOSPHATE 93457487984 No Longer Active Bijal Philipp RN Active METFORMIN HCL 500 MG TABS 2 by mouth twice daily METFORMIN HCL 24110374735 Active Mitch Urbina DO Active GLIMEPIRIDE 4 MG TABS 1 tab po bid GLIMEPIRIDE 972132 90896 Active Mitch Ubrina DO Active COLCRYS 0.6 MG TABS 1 po q 6 hours prn gout pain 03/02 COLCHICINE 10891541871 No Longer Active Camila Reese Active LISINOPRIL 5 MG TABS 1 by mouth every day LISIN OPRIL 65443464090 No Longer Active Nguyen Perez Active KLOR-CON 20 MEQ PACK Take one by mouth daily 8 POTASSIUM CHLORIDE 34151360290 No Longer Active Nguyen Perez Active FUROSEMIDE 40 MG TABS 1 by mouth daily FUROSEMI DE 79883033921 No Longer Active Nguyen Perez Active PROVIGIL 200 MG TABS 1/2 tab po q day MODAFINIL 11133 209974 Active Mitch Urbina DO Active PROVIGIL 100 MG TABS Take one by mouth daily MO DAFINIL 05470586971 No Longer Active Mitch Urbina DO Active BACTRIM DS 800-160 MG TAB 1 tab by mouth twice daily 2 TRIMETHOPRIM-SULFAMETHOXAZOLE 55039571907 No Longer Active Renan Hays MD Active FAMOTIDINE 20 MG TABS by mouth twice a day FAMOTI DINE 02901432742 Active Mitch Urbina DO Active ADULT ASPIRIN LOW STRENGTH 81 MG TBDP 1 by mouth every daily ASPIRIN 50551646242 Active Mitch Urbina DO Active METOPROLOL TARTRATE 50 MG TABS 1 by mouth twice daily METOPROLOL TARTRATE 50269511207 Active Mitch W Carlitos DO Active BACTRIM DS 800-160 MG TAB 1 tab by mouth twice daily 2 BACTRIM DS 800-160 MG TAB TRIMETHOPRIM-SULFAMETHOXAZOLE Inac tive PROVIGIL 100 MG TABS Take one by mouth daily 4 PROVIGIL 100 MG TABS 995583 MODAFINIL Inactive FUROSEMIDE 40 MG TABS 1 by mouth daily FU ROSEMIDE 40 MG TABS 165482 FUROSEMIDE Inactive KLOR-CON 20 MEQ PACK Take one by mouth daily 8 KLOR-CON 20 MEQ PACK 636100 POTASSIUM CHLORIDE Inactive LISINOPRIL 5 MG TABS 1 by mouth every day LISINOPRIL 5 MG TABS 997693 LISINOPRIL Inactive COLCRYS 0.6 MG TABS 1 po q 6 hours prn gout pain 03/02 COLCRYS 0.6 MG TABS COLCHICINE Inactive JANUVIA 100 MG TABS 1/2 by mouth every day JANUVI A 100 MG TABS SITAGLIPTIN PHOSPHATE Inactive SIMVASTATIN 20 MG TABS 1 tab daily at bedtime SIMVASTATIN 20 MG TABS 262509 SIMVASTATIN Inactive COUMADIN 6 MG TABS 1 by mouth every other day COUMADIN 6 MG TABS 644353 WARFARIN SODIUM Inactive COUMADIN 5 MG TABS 1 by mouth every other day COUMADIN 5 MG TABS 499692 WARFARIN SODIUM Inactive LISINOPRIL 20 MG TABS 1 tab po at HS KOKI NOPRIL 20 MG TABS 506589 LISINOPRIL Inactive LISINOPRIL-HYDROCHLOROTHIAZIDE 20-12.5 MG TABS 1 tab by mouth da rocky LISINOPRIL-HYDROCHLOROTHIAZIDE 20-12.5 MG TABS 826070 LISINOPRIL-HYDROCHLOROTHIAZIDE Inactive POLYTRIM 31942-3.1 UNIT/ML-% SOLN 1 drop in affected e ye every 3 hours while awake x 7 days POLYTRIM 53242-8.1 UNIT/ML-% SOLN 79346 7 POLYMYXIN B-TRIMETHOPRIM Inactive COUMADIN 4 MG TABS 1 tablet daily COUMADIN 4 MG TABS 737799 WARFARIN SODIUM Inactive CLONIDINE HCL 0.1 MG TABS 1 po bid 7 days, then 1/2 tab po b id 7 days CLONIDINE HCL 0.1 MG TABS 374779 CLONIDINE HCL I nactive ALLOPURINOL 300 MG TABS Take 1 tablet by mouth daily 2 ALLOPURINOL 300 MG TABS 512794 ALLOPURINOL Inactive MECLIZINE HCL 25 MG TAB 1 po tid 3 days, then 1/2 tab tid 3 days MECLIZINE HCL 25 MG TAB 683429 MECLIZINE HCL Inactive LOVENOX 100 MG/ML SC SOLN One injection twice a day 09/15/15 LOVENOX 100 MG/ML SC SOLN 382891 ENOXAPARIN SODIUM Inactive Vital Signs Date Name [...] 10.3 mg/dL 2.6-7.2 sodium, serum 136 mmol/L 847-569 2208/07/25 potassium, serum 4.6 mmol/L 3.5-5.2 chloride, serum [...] 11 .6-14.8 platelet count 277 10^3/MM^3 10*3/mm3 574-048 8153/07/25 erythrocyte (RBC) count 5.02 10^6/MM^3 10*6/mm3 4.69-6.1 3 hemoglobin, blood 12.8 g/dL 13.5-17.5 hematocrit, blood 40.1 % 41.0-53.0 leukocyte count, blood 6.6 10^3/MM^3 10*3/mm3 4.6-10.2 Lab Report: CBC, Comp. Metabolic Panel, HGBA1C, MICROALBUMIN, Uric Acid - Lab microalbumin, urine 30 0-19 Lab Report: Comp. Metabolic Panel, HGBA1 C, Lipid Panel - Chemistry sodium, serum 137 mmol/L 224-266 4868/11/14 potassium, serum 4.4 mmol/L 3.5-5.2 chloride, serum [...] 8.0 % 4.3-6.0 cholesterol, serum 130 mg/dL 786-235 9206/11/14 triglyceride, serum, fasting 288 mg/dL 30-200 HDL cholesterol, serum 33 mg/dL 32-96 LDL cholesterol, serum 39 mg/dL 0-130 Lab Report: Comp. Metabolic Panel, HGBA1 C, Lipid Panel, Prothrombin Time - Chemistry urea nitrogen, blood 29 mg/dL 7-18 chloride, serum 101 mmol/L 98-107 carbon dioxide, venous blood 29.0 mmol/L 21.0-32 .0 blood glucose 149 mg/dL 65-110 sodium, serum 136 mmol/L 490-562 5281/12/02 potassium, serum 4.4 mmol/L 3.5-5.2 creatinine, serum 1.20 mg/dL 0.60-1.30 alanine aminotransferase (SGPT), serum 46 U/L 12-78 aspartate aminotransferase (SGOT), serum 34 U/L 15-37 calcium, serum 10.3 mg/dL 8.5-10.1 bilirubin, serum, total 0.60 mg/dL 0.00-1.00 hemoglobin A1C, blood, as % of total hemoglobin 7.6 % 4.3-6.0 cholesterol, serum 117 mg/dL 144-592 4211/12/02 triglyceride, serum, fasting 226 mg/dL 30-200 HDL cholesterol, serum 30 mg/dL 32-96 LDL cholesterol, serum 42 mg/dL 0-130 Lab Report: Comp. Metabolic Panel, HGBA1 C, Lipid Panel, Prothrombin Time - Coagulation prothrombin time (patient) 16.3 SECS s 11.1-13.4 international normalized ratio (INR) 1.7 1.0-3.5 Lab Report: Prothrombin Time - Coagulati on international normalized ratio (INR) 2.6 1.0-3.5 prothrombin time (patient) 17.8 SECS s 11.4-12.8 international normalized ratio (INR) 1.7 1.0-3.5 prothrombin time (patient) 16.0 SECS s 11.1-13.4 international normalized ratio (INR) 2.1 1.0-3.5 prothrombin time (patient) 19.9 SECS s 11.1-13.4 prothrombin time (patient) 18.4 SECS s 11.1-13.4 international normalized ratio (INR) 2.2 1.0-3.5 prothrombin time (patient) 18.4 SECS s 11.1-13.4 international normalized ratio (INR) 1.9 1.0-3.5 prothrombin time (patient) 16.8 SECS s 11.1-13.4 international normalized ratio (INR) 2.2 1.0-3.5 Encounters Code Encounter Date Provider Facility CPT-33713 Level 3 Est. Patient 17:01:00 OUTREACH LIBRARIAN Mitch W L janelle [facility] CPT-14161 Level 3 Est. Patient 13:53:19 OUTREACH LIBRARIAN Mitch W L janelle [facility] CPT-99611 Level 3 Est. Patient 19:19:37 OUTREACH LIBRARIAN Mitch W L janelle [facility] CPT-82248 Level 3 Est. Patient 13:25:53 OUTREACH LIBRARIAN Tavo toure MD [facility] CPT-53080 Level 3 Est. Patient 18:17:28 CDT Mitch W L janelle [facility] CPT-22823 Level 3 Est. Patient 15:22:57 CDT Mitch W L janelle [facility] CPT-07623 Level 3 Est. Patient 18:21:50 CDT Mitch W L ee DO [facility] CPT-38469 Level 3 Est. Patient 18:20:38 CDT Mitch W L janelle [facility] CPT-88668 Level 3 Est. Patient 15:37:55 CDT Mitch W L ee [facility] CPT-94809 Level 2 Est. Patient 15:54:44 CDT Camrine benton MD [facility] CPT-52170 Level 3 Est. Patient 21:46:01 OUTREACH LIBRARIAN Mitch Ambrose L janelle [facility] CPT-66712 Level 3 Est. Patient 22:15:50 CDT Mitch luis [facility] CPT-16691 Level 3 Est. Patient 10:48:15 CDT Mitch luis [facility] CPT-90088 Level 3 Est. Patient 23:20:57 CDT Tavo toure MD [facility] CPT-08049 Level 3 Est. Patient 16:26:13 CDT Mitch luis [facility] Procedures Code Procedure Name Date Entry Date Standard Desc ription CPT-34538 Venipuncture Draw Fee 10:13:28 OUTREACH LIBRARIAN CPT-08468 Venipuncture Draw Fee 08:31:11 CDT CPT-48821 Aspir/Inject Med Joint 18:17:28 CDT CPT-07401 Venipuncture Draw Fee 10:13:30 CDT CPT-86388 Venipuncture Draw Fee 08:31:43 OUTREACH LIBRARIAN CPT-JTINJ Joint Injection 18:34:50 CDT CPT-49375 Knee 3V 12:25:09 CDT CPT-63364 Venipuncture Draw Fee 12:15:57 CDT CPT-060 Medical Surveillance Exam 21:31:43 CDT 2011 CPT-83690 Venipuncture Draw Fee 08:32:05 OUTREACH LIBRARIAN CPT-OV Office Visit 18:19:06 CDT
--- OUTSIDE RECORDS SUMMARY | 2020-01-18 13:31 | XMS REPORT | Clinical Summary ---
[...] Coronary atherosclerosis of unspecified type of vessel, teller or graft EDEMA 782.3 Resolved Mitch Urbina [...] by mouth twice a day 2017 FAMOTIDINE 31170282227 No Longer Active Mitch Urbina DO Active COLCRYS 0.6 MG ORAL TABLET 1 tab qid prn gout C OLCHICINE 82273783921 No Longer Active Mitch Urbina DO Active GLIMEPIRIDE 2 MG ORAL TABLET 1 po BID GLIMEPIRID E 89485307651 Active Renee Oconnor LPN Active KEFLEX 500 MG ORAL CAPSULE 1 po qid CEPHALEXI N 86564627414 No Longer Active Mitch Urbina DO Active LOSARTAN POTASSIUM 100 MG ORAL TABLET 1 pill by mouth daily, for blood pressure LOSARTAN POTASSIUM 96102121033 Active Mitch Urbina DO Active AMLODIPINE BESYLATE 5 MG ORAL TABLET 1 tablet by mouth daily 201 01/20/04 AMLODIPINE BESYLATE 92598129588 No Longer Active Joe fulton APRN Active MITIGARE 0.6 MG ORAL CAPSULE 2 capsules at onset of go ut pain, then take one capsule at 1 hour if symptoms persist. COLCHICINE 59 246223873 Active Mitch Urbina DO Active COUMADIN 1 MG ORAL TABLET 2 tabs orally daily with the 5mg tab to equal 7mg daily WARFARIN SODIUM 21184627251 Active Ana Ocampo Active INVOKANA 100 MG ORAL TABLET 1 tablet orally daily CANAGLIFLOZIN 81246795416 Active Mitch Urbina DO Active MINOXIDIL 2.5 MG ORAL TABLET 1 tablet daily for high blood press ure MINOXIDIL 12762938389 Active Renee Oconnor LPN Active MECLIZINE HCL 25 MG ORAL TABLET 1 po tid 3 days, then 1/2 ta b tid 3 days MECLIZINE HCL 19697108343 No Longer Active Corey SEGURA Active ALLOPURINOL 300 MG ORAL TABLET Take 1 tablet by mouth daily 2012 ALLOPURINOL 06469736571 No Longer Active Corey SEGURA Active CLONIDINE HCL 0.1 MG ORAL TABLET 1 po bid 7 days, then 1/2 t ab po bid 7 days CLONIDINE HCL 48800445119 No Longer Active Corey SEGURA Active COUMADIN 5 MG ORAL TABLET 1 tab PO daily WARFAR IN SODIUM 64329203337 Active Mitch Urbina DO Active COUMADIN 4 MG ORAL TABLET 1 tablet daily WARFAR IN SODIUM 67016869536 No Longer Active Corey SEGURA Active POLYTRIM 46496-0.1 UNIT/ML-% OPHTHALMIC SOLUTION 1 rui p in affected eye every 3 hours while awake x 7 days POLYMYXIN B-TRIMETHOP RIM 99527380283 No Longer Active Corey SEGURA Active LOSARTAN POTASSIUM-HCTZ 100-12.5 MG ORAL TABLET 1 by m outh daily for high blood pressure LOSARTAN POTASSIUM-HCTZ 51300551510 No Longer A ctive Mitch Urbina DO Active LISINOPRIL-HYDROCHLOROTHIAZIDE 20-12.5 MG ORAL TABLET 1 tab by m outh daily LISINOPRIL-HYDROCHLOROTHIAZIDE 67809580488 No Longer Active Mitch Urbina DO Active LISINOPRIL 20 MG ORAL TABLET 1 tab po at HS LIS INOPRIL 04843276984 No Longer Active Mitch Urbina DO Active COUMADIN 5 MG ORAL TABLET 1 by mouth every other day 2 WARFARIN SODIUM 54194346088 No Longer Active Mitch Urbina DO Active COUMADIN 6 MG ORAL TABLET 1 by mouth every other day 2 WARFARIN SODIUM 42755561135 No Longer Active Mitch Urbina DO Active SIMVASTATIN 40 MG ORAL TABLET 1 tab daily at bedtime SIMVASTATIN 93411371543 Active Renee Oconnor LPN Active SIMVASTATIN 20 MG ORAL TABLET 1 tab daily at bedtime 2 SIMVASTATIN 52657735900 No Longer Active Mitch Urbina DO Active LOVENOX 100 MG/ML SUBCUTANEOUS SOLUTION One injection twice a da y ENOXAPARIN SODIUM 54346110201 No Longer Active Carmine Yusuf MD Active JANUVIA 50 MG ORAL TABLET Take one by mouth daily SITAGLIPTIN PHOSPHATE 84508137161 Active Mitch Urbina DO Active JANUVIA 100 MG ORAL TABLET 1/2 by mouth every day 2011 SITAGLIPTIN PHOSPHATE 94167337878 No Longer Active Bijal Segal RN Acti ve METFORMIN HCL 500 MG ORAL TABLET 2 by mouth twice daily METFORMIN HCL 77047093822 Active Mitch Urbina DO Active COLCRYS 0.6 MG ORAL TABLET 1 po q 6 hours prn gout pain COLCHICINE 12061033725 No Longer Active Camila Reese Active LISINOPRIL 5 MG ORAL TABLET 1 by mouth every day 11/17 LISINOPRIL 88029947913 No Longer Active Nguyen Perez Active KLOR-CON 20 MEQ ORAL PACKET Take one by mouth daily 09/10/08 POTASSIUM CHLORIDE 10772186999 No Longer Active Nguyen Perez Active FUROSEMIDE 40 MG ORAL TABLET 1 by mouth daily F UROSEMIDE 43331536157 No Longer Active Nguyen Perez Active PROVIGIL 200 MG ORAL TABLET 1/2 tab po q day MODA FINIL 31991979486 Active Renee Oconnor LPN Active PROVIGIL 100 MG ORAL TABLET Take one by mouth daily 08/20/04 MODAFINIL 52120697379 No Longer Active Mitch Urbina DO Active BACTRIM DS 800-160 MG ORAL TABLET 1 tab by mouth twice daily 201 10/19/09 TRIMETHOPRIM-SULFAMETHOXAZOLE 04447156735 No Longer Active Elian Hays MD Active ADULT ASPIRIN LOW STRENGTH 81 MG ORAL TABLET DISINTEGR ATING 1 by mouth every daily ASPIRIN 56789397493 Active Mitch Urbina DO Ac tive METOPROLOL TARTRATE 50 MG ORAL TABLET 1 by mouth twice daily METOPROLOL TARTRATE 04678490376 Active Mitch Urbina DO Active BACTRIM DS 800-160 MG ORAL TABLET 1 tab by mouth twice daily 201 10/19/09 BACTRIM DS 800-160 MG ORAL TABLET 016950 TRIMETHOPRIM-SULFAMETHOXAZOLE Inactive PROVIGIL 100 MG ORAL TABLET Take one by mouth daily 08/20/04 PROVIGIL 100 MG ORAL TABLET 304024 MODAFINIL Inactive FUROSEMIDE 40 MG ORAL TABLET 1 by mouth daily FUROSEMIDE 40 MG ORAL TABLET 611981 FUROSEMIDE Inactive KLOR-CON 20 MEQ ORAL PACKET Take one by mouth daily 09/10/08 KLOR- CON 20 MEQ ORAL PACKET 0259876 POTASSIUM CHLORIDE Inactive LISINOPRIL 5 MG ORAL TABLET 1 by mouth every day 11/17 LISINOPRIL 5 MG ORAL TABLET 505121 LISINOPRIL Inactive COLCRYS 0.6 MG ORAL TABLET 1 po q 6 hours prn gout pain COLCRYS 0.6 MG ORAL TABLET 901060 COLCHICINE Inactive JANUVIA 100 MG ORAL TABLET 1/2 by mouth every day 2011 JANUVIA 100 MG ORAL TABLET SITAGLIPTIN PHOSPHATE Inactive SIMVASTATIN 20 MG ORAL TABLET 1 tab daily at bedtime 2 SIMVASTATIN 20 MG ORAL TABLET 499922 SIMVASTATIN Inactive COUMADIN 6 MG ORAL TABLET 1 by mouth every other day COUMADIN 6 MG ORAL TABLET 465862 WARFARIN SODIUM Inactive COUMADIN 5 MG ORAL TABLET 1 by mouth every other day COUMADIN 5 MG ORAL TABLET 213916 WARFARIN SODIUM Inactive LISINOPRIL 20 MG ORAL TABLET 1 tab po at HS LISINOPRIL 20 MG ORAL TABLET 172526 LISINOPRIL Inactive LISINOPRIL-HYDROCHLOROTHIAZIDE 20-12.5 MG ORAL TABLET 1 tab by m outh daily LISINOPRIL-HYDROCHLOROTHIAZIDE 20-12.5 MG ORAL TABLET 741928 LISINOPRIL-HYDROCHLOROTHIAZIDE Inactive POLYTRIM 72889-9.1 UNIT/ML-% OPHTHALMIC SOLUTION 1 rui p in affected eye every 3 hours while awake x 7 days POLYTRIM 1000 0-0.1 UNIT/ML-% OPHTHALMIC SOLUTION 155705 POLYMYXIN B-TRIMETHOPRIM Inactive COUMADIN 4 MG ORAL TABLET 1 tablet daily COUMADIN 4 MG ORAL TABLET 374820 WARFARIN SODIUM Inactive CLONIDINE HCL 0.1 MG ORAL TABLET 1 po bid 7 days, then 1/2 t ab po bid 7 days CLONIDINE HCL 0.1 MG ORAL TABLET 139289 CLONIDIN E HCL Inactive ALLOPURINOL 300 MG ORAL TABLET Take 1 tablet by mouth daily 2012 ALLOPURINOL 300 MG ORAL TABLET 515898 ALLOPURINOL I nactive MECLIZINE HCL 25 MG ORAL TABLET 1 po tid 3 days, then 1/2 ta b tid 3 days MECLIZINE HCL 25 MG ORAL TABLET 266970 MECLIZINE HCL Inactive AMLODIPINE BESYLATE 5 MG ORAL TABLET 1 tablet by mouth daily 201 01/20/04 AMLODIPINE BESYLATE 5 MG ORAL TABLET 953973 AMLODIPINE BESYLATE Inactive KEFLEX 500 MG ORAL CAPSULE 1 po qid K EFLEX 500 MG ORAL CAPSULE 792924 CEPHALEXIN Inactive COLCRYS 0.6 MG ORAL TABLET 1 tab qid prn gout COLCRYS 0.6 MG ORAL TABLET 918040 COLCHICINE Inactive FAMOTIDINE 20 MG ORAL TABLET by mouth twice a day 2017 FAMOTIDINE 20 MG ORAL TABLET 852098 FAMOTIDINE Inactive LOVENOX 100 MG/ML SUBCUTANEOUS SOLUTION One injection twice a da y LOVENOX 100 MG/ML SUBCUTANEOUS SOLUTION 583479 ENOXAPAR IN SODIUM Inactive Vital Signs Date [...] weight E&M 227 [lb_av] Weight Measure d Diagnostic Results Date Name Value Unit Range Description Lab Report: Basic Metabolic Panel - Chem istry sodium, serum 141 mmol/L 028-032 1489/08/07 potassium, serum 4.5 mmol/L 3.5-5.2 chloride, serum [...] HGBA1C - Chemistry cholesterol, serum 136 mg/dL 920-559 4332/12/06 triglyceride, serum, fasting 247 mg/dL 30-200 HDL cholesterol, serum 41 mg/dL 32-60 LDL cholesterol, serum 46 mg/dL 0-130 aspartate aminotransferase (SGOT), serum 22 U/L 15-37 alanine aminotransferase (SGPT), serum 30 U/L 12-78 bilirubin, serum, total 0.80 mg/dL 0.00-1.00 hemoglobin A1C, blood, as % of total hemoglobin 6.4 % 4.3-6.0 Encounters Code Encounter Date Provider Facility CPT-42161 Level 3 Est. Patient 18:25:53 CDT Mitch luis [facility] CPT-84016 Level 3 Est. Patient 19:43:34 CDT Mitch luis [facility] CPT-66174 Level 4 Est. Patient 09:30:18 CDT Mitch luis [facility] CPT-96722 Level 3 Est. Patient 15:10:14 CDT Joe kamara [facility] CPT-22048 Level 3 Est. Patient 15:03:46 CDT Joe kamara [facility] CPT-49278 Level 3 Est. Patient 14:21:06 CDT Mitch luis [facility] CPT-29878 Level 3 Est. Patient 14:52:06 CDT Joe kamara [facility] CPT-03671 Level 3 Est. Patient 09:34:30 CONSERVATOR ARTIFACTS Mitch luis [facility] CPT-06418 Level 3 Est. Patient 09:37:15 CDT Mitch luis [facility] CPT-31734 Level 3 Est. Patient 17:01:00 CONSERVATOR ARTIFACTS Mitch luis [facility] CPT-71910 Level 3 Est. Patient 13:53:19 CONSERVATOR ARTIFACTS Mitch luis [facility] CPT-97868 Level 3 Est. Patient 19:19:37 CONSERVATOR ARTIFACTS Mitch luis [facility] CPT-16356 Level 3 Est. Patient 13:25:53 CONSERVATOR ARTIFACTS Tavo toure MD [facility]-14509 Level 3 Est. Patient 18:17:28 CDT Mitch luis [facility] CPT-71259 Level 3 Est. Patient 15:22:57 CDT Mitch luis [facility] CPT-23174 Level 3 Est. Patient 18:21:50 CDT Mitch luis [facility] CPT-75263 Level 3 Est. Patient 18:20:38 CDT Mitch luis [facility] CPT-30082 Level 3 Est. Patient 15:37:55 CDT Mitch luis [facility] CPT-91679 Level 2 Est. Patient 15:54:44 CDT Carmine benton MD [facility]-34388 Level 3 Est. Patient 21:46:01 CONSERVATOR ARTIFACTS Mitch luis [facility] CPT-22072 Level 3 Est. Patient 22:15:50 CDT Mitch luis [facility] CPT-20448 Level 3 Est. Patient 10:48:15 CDT Mitch luis [facility] CPT-35705 Level 3 Est. Patient 23:20:57 CDT Tavo toure MD [facility]-22190 Level 3 Est. Patient 16:26:13 CDT Mitch luis [facility] Procedures Code Procedure Name Date Entry Date Standard Desc ription CPT-JTINJ Asp/Joint Injection 18:47:02 CDT CPT-17795 Venipuncture Draw Fee 09:26:17 CDT CPT-13306 PT/INR - LAB USE ONLY 13:32:49 CONSERVATOR [employer]ACTS CPT-98365 Venipuncture Draw Fee 13:32:49 CONSERVATOR [employer] CPT-48987 PT/INR - LAB USE ONLY 10:34:49 CONSERVATOR [employer] CPT-32977 Venipuncture Draw Fee 10:34:48 CONSERVATOR [employer] CPT-95588 PT/INR - LAB USE ONLY 09:22:03 CONSERVATOR [employer]ACT[employer] CPT-04331 Venipuncture Draw Fee 09:22:02 CONSERVATOR [employer] CPT-20860 Hemoccult IFOBT - LAB USE ONLY 10:27:22 CDT CPT-89818 Venipuncture Draw Fee 08:27:08 CDT CPT-53623 Liver Profile - LAB USE ONLY 08:27:07 CDT 2 CPT-32148 Microalbumin - LAB USE ONLY 08:27:07 CDT 20 25/05/09 CPT-98199 PT/INR - LAB USE ONLY 08:27:07 CDT CPT-42112 HGBA1C - LAB USE ONLY 08:27:07 CDT CPT-70022 CBC - LAB USE ONLY 08:27:07 CDT CPT-85122 Venipuncture Draw Fee 11:09:14 CDT CPT-43648 Venipuncture Draw Fee 08:32:21 CONSERVATOR [employer] CPT-53080 Venipuncture Draw Fee 09:38:56 CONSERVATOR [employer] CPT-94026 No Charge Offi Visit 21:36:07 CDT 1 CPT-99717 Venipuncture Draw Fee 10:13:28 CONSERVATOR [employer] CPT-73230 Venipuncture Draw Fee 08:31:11 CDT CPT-17005 Aspir/Inject Med Joint 18:17:28 CDT CPT-34273 Venipuncture Draw Fee 10:13:30 CDT CPT-36233 Venipuncture Draw Fee 08:31:43 CONSERVATOR [employer] CPT-JTINJ Joint Injection 18:34:50 CDT CPT-97431 Knee 3V 12:25:09 CDT CPT-43167 Venipuncture Draw Fee 12:15:57 CDT CPT-060 Medical Surveillance Exam 21:31:43 CDT 2011 CPT-88653 Venipuncture Draw Fee 08:32:05 CONSERVATOR [employer]ACTS CPT-OV Office Visit 18:19:06 CDT
--- OUTSIDE RECORDS SUMMARY | 2020-01-18 13:31 | XMS REPORT | Clinical Summary ---
Author Author Admin, Mitch Leon Organization [facility] Address Unknown Phone Unavailable Allergies, Adverse Reactions, [...] by mouth twice a day 2017 FAMOTIDINE [id number] No Longer Active Mitch Urbina DO Active COLCRYS 0.6 MG ORAL TABLET 1 tab qid prn gout C OLCHICINE 08242990775 No Longer Active Mitch Urbina DO Active GLIMEPIRIDE 2 MG ORAL TABLET 1 po BID GLIMEPIRID E 33704716845 Active Renee Oconnor LPN Active KEFLEX 500 MG ORAL CAPSULE 1 po qid CEPHALEXI N 27434459872 No Longer Active Mitch Urbina DO Active LOSARTAN POTASSIUM 100 MG ORAL TABLET 1 pill by mouth daily, for blood pressure LOSARTAN POTASSIUM 38504749773 Active Mitch Urbina DO Active AMLODIPINE BESYLATE 5 MG ORAL TABLET 1 tablet by mouth daily 201 01/20/04 AMLODIPINE BESYLATE 59333309131 No Longer Active Joe fulton APRN Active MITIGARE 0.6 MG ORAL CAPSULE 2 capsules at onset of go ut pain, then take one capsule at 1 hour if symptoms persist. COLCHICINE 59 782998199 Active Mitch Urbina DO Active COUMADIN 1 MG ORAL TABLET 2 tabs orally daily with the 5mg tab to equal 7mg daily WARFARIN SODIUM 09210949032 Active Mitch Urbina DO Active INVOKANA 100 MG ORAL TABLET 1 tablet orally daily CANAGLIFLOZIN 53238117152 Active Mitch Urbina DO Active MINOXIDIL 2.5 MG ORAL TABLET 1 tablet daily for high blood press ure MINOXIDIL 10777796465 Active Renee Oconnor LPN Active MECLIZINE HCL 25 MG ORAL TABLET 1 po tid 3 days, then 1/2 ta b tid 3 days MECLIZINE HCL 55020903904 No Longer Active Corey SEGURA Active ALLOPURINOL 300 MG ORAL TABLET Take 1 tablet by mouth daily 2012 ALLOPURINOL 16601791625 No Longer Active Corey SEGURA Active CLONIDINE HCL 0.1 MG ORAL TABLET 1 po bid 7 days, then 1/2 t ab po bid 7 days CLONIDINE HCL 38918881855 No Longer Active Corey SEGURA Active COUMADIN 5 MG ORAL TABLET 1 tab PO daily WARFAR IN SODIUM 91925883051 Active Mitch Urbina DO Active COUMADIN 4 MG ORAL TABLET 1 tablet daily WARFAR IN SODIUM 22108339369 No Longer Active Corey SEGURA Active POLYTRIM 00809-7.1 UNIT/ML-% OPHTHALMIC SOLUTION 1 rui p in affected eye every 3 hours while awake x 7 days POLYMYXIN B-TRIMETHOP RIM 49208391555 No Longer Active Corey SEGURA Active LOSARTAN POTASSIUM-HCTZ 100-12.5 MG ORAL TABLET 1 by m outh daily for high blood pressure LOSARTAN POTASSIUM-HCTZ 89281691405 No Longer A ctive Mitch Urbina DO Active LISINOPRIL-HYDROCHLOROTHIAZIDE 20-12.5 MG ORAL TABLET 1 tab by m outh daily LISINOPRIL-HYDROCHLOROTHIAZIDE 16816681880 No Longer Active Mitch Urbina DO Active LISINOPRIL 20 MG ORAL TABLET 1 tab po at HS LIS INOPRIL 87006190599 No Longer Active Mitch Urbina DO Active COUMADIN 5 MG ORAL TABLET 1 by mouth every other day 2 WARFARIN SODIUM 03841623100 No Longer Active Mitch Urbina DO Active COUMADIN 6 MG ORAL TABLET 1 by mouth every other day 2 WARFARIN SODIUM 28531021140 No Longer Active Mitch Urbina DO Active SIMVASTATIN 40 MG ORAL TABLET 1 tab daily at bedtime SIMVASTATIN 92893108040 Active Renee Oconnor LPN Active SIMVASTATIN 20 MG ORAL TABLET 1 tab daily at bedtime 2 SIMVASTATIN 98152578488 No Longer Active Mitch Urbina DO Active LOVENOX 100 MG/ML SUBCUTANEOUS SOLUTION One injection twice a da y ENOXAPARIN SODIUM 58756204084 No Longer Active Carmine Yusuf MD Active JANUVIA 50 MG ORAL TABLET Take one by mouth daily SITAGLIPTIN PHOSPHATE 64625204233 Active Mitch Urbina DO Active JANUVIA 100 MG ORAL TABLET 1/2 by mouth every day 2011 SITAGLIPTIN PHOSPHATE 66448626780 No Longer Active Bijal Segal RN Acti ve METFORMIN HCL 500 MG ORAL TABLET 2 by mouth twice daily METFORMIN HCL 86479562563 Active Mitch Urbina DO Active COLCRYS 0.6 MG ORAL TABLET 1 po q 6 hours prn gout pain COLCHICINE 35155588409 No Longer Active Camila Reese Active LISINOPRIL 5 MG ORAL TABLET 1 by mouth every day 11/17 LISINOPRIL 85751260270 No Longer Active Nguyen Perez Active KLOR-CON 20 MEQ ORAL PACKET Take one by mouth daily 09/10/08 POTASSIUM CHLORIDE 13774778050 No Longer Active Nguyen Perez Active FUROSEMIDE 40 MG ORAL TABLET 1 by mouth daily F UROSEMIDE 98632130673 No Longer Active Nguyen Perez Active PROVIGIL 200 MG ORAL TABLET 1/2 tab po q day MODA FINIL 94516330286 Active Renee Oconnor LPN Active PROVIGIL 100 MG ORAL TABLET Take one by mouth daily 08/20/04 MODAFINIL 62110487873 No Longer Active Mitch Urbina DO Active BACTRIM DS 800-160 MG ORAL TABLET 1 tab by mouth twice daily 201 10/19/09 TRIMETHOPRIM-SULFAMETHOXAZOLE 42062863329 No Longer Active Elian Hays MD Active ADULT ASPIRIN LOW STRENGTH 81 MG ORAL TABLET DISINTEGR ATING 1 by mouth every daily ASPIRIN 37294149419 Active Mitch Urbina DO Ac tive METOPROLOL TARTRATE 50 MG ORAL TABLET 1 by mouth twice daily METOPROLOL TARTRATE 00258745520 Active Mitch Urbina DO Active BACTRIM DS 800-160 MG ORAL TABLET 1 tab by mouth twice daily 201 10/19/09 BACTRIM DS 800-160 MG ORAL TABLET 585593 TRIMETHOPRIM-SULFAMETHOXAZOLE Inactive PROVIGIL 100 MG ORAL TABLET Take one by mouth daily 08/20/04 PROVIGIL 100 MG ORAL TABLET 684109 MODAFINIL Inactive FUROSEMIDE 40 MG ORAL TABLET 1 by mouth daily FUROSEMIDE 40 MG ORAL TABLET 679277 FUROSEMIDE Inactive KLOR-CON 20 MEQ ORAL PACKET Take one by mouth daily 09/10/08 KLOR- CON 20 MEQ ORAL PACKET 3263586 POTASSIUM CHLORIDE Inactive LISINOPRIL 5 MG ORAL TABLET 1 by mouth every day 11/17 LISINOPRIL 5 MG ORAL TABLET 748304 LISINOPRIL Inactive COLCRYS 0.6 MG ORAL TABLET 1 po q 6 hours prn gout pain COLCRYS 0.6 MG ORAL TABLET 861731 COLCHICINE Inactive JANUVIA 100 MG ORAL TABLET 1/2 by mouth every day 2011 JANUVIA 100 MG ORAL TABLET SITAGLIPTIN PHOSPHATE Inactive SIMVASTATIN 20 MG ORAL TABLET 1 tab daily at bedtime 2 SIMVASTATIN 20 MG ORAL TABLET 238494 SIMVASTATIN Inactive COUMADIN 6 MG ORAL TABLET 1 by mouth every other day COUMADIN 6 MG ORAL TABLET 906915 WARFARIN SODIUM Inactive COUMADIN 5 MG ORAL TABLET 1 by mouth every other day 2 COUMADIN 5 MG ORAL TABLET 432554 WARFARIN SODIUM Inactive LISINOPRIL 20 MG ORAL TABLET 1 tab po at HS LISINOPRIL 20 MG ORAL TABLET 409188 LISINOPRIL Inactive LISINOPRIL-HYDROCHLOROTHIAZIDE 20-12.5 MG ORAL TABLET 1 tab by m outh daily LISINOPRIL-HYDROCHLOROTHIAZIDE 20-12.5 MG ORAL TABLET 049497 LISINOPRIL-HYDROCHLOROTHIAZIDE Inactive POLYTRIM 71821-1.1 UNIT/ML-% OPHTHALMIC SOLUTION 1 rui p in affected eye every 3 hours while awake x 7 days POLYTRIM 1000 0-0.1 UNIT/ML-% OPHTHALMIC SOLUTION 528064 POLYMYXIN B-TRIMETHOPRIM Inactive COUMADIN 4 MG ORAL TABLET 1 tablet daily COUMADIN 4 MG ORAL TABLET 145930 WARFARIN SODIUM Inactive CLONIDINE HCL 0.1 MG ORAL TABLET 1 po bid 7 days, then 1/2 t ab po bid 7 days CLONIDINE HCL 0.1 MG ORAL TABLET 633052 CLONIDIN E HCL Inactive ALLOPURINOL 300 MG ORAL TABLET Take 1 tablet by mouth daily 2012 ALLOPURINOL 300 MG ORAL TABLET 986844 ALLOPURINOL I nactive MECLIZINE HCL 25 MG ORAL TABLET 1 po tid 3 days, then 1/2 ta b tid 3 days MECLIZINE HCL 25 MG ORAL TABLET 013939 MECLIZINE HCL Inactive AMLODIPINE BESYLATE 5 MG ORAL TABLET 1 tablet by mouth daily 201 01/20/04 AMLODIPINE BESYLATE 5 MG ORAL TABLET 942333 AMLODIPINE BESYLATE Inactive KEFLEX 500 MG ORAL CAPSULE 1 po qid K EFLEX 500 MG ORAL CAPSULE 425674 CEPHALEXIN Inactive COLCRYS 0.6 MG ORAL TABLET 1 tab qid prn gout COLCRYS 0.6 MG ORAL TABLET 169235 COLCHICINE Inactive FAMOTIDINE 20 MG ORAL TABLET by mouth twice a day 2017 FAMOTIDINE 20 MG ORAL TABLET 027413 FAMOTIDINE Inactive LOVENOX 100 MG/ML SUBCUTANEOUS SOLUTION One injection twice a da y LOVENOX 100 MG/ML SUBCUTANEOUS SOLUTION 684672 ENOXAPAR IN SODIUM Inactive Vital Signs Date [...] - Chem istry sodium, serum 141 mmol/L 288-400 5439/08/07 potassium, serum 4.5 mmol/L 3.5-5.2 chloride, serum [...] HGBA1C - Chemistry cholesterol, serum 136 mg/dL 395-174 4407/12/06 triglyceride, serum, fasting 247 mg/dL 30-200 HDL cholesterol, serum 41 mg/dL 32-60 LDL cholesterol, serum 46 mg/dL 0-130 aspartate aminotransferase (SGOT), serum 22 U/L 15-37 alanine aminotransferase (SGPT), serum 30 U/L 12-78 bilirubin, serum, total 0.80 mg/dL 0.00-1.00 hemoglobin A1C, blood, as % of total hemoglobin 6.4 % 4.3-6.0 Encounters Code Encounter Date Provider Facility CPT-69574 Level 3 Est. Patient 18:25:53 CDT Mitch luis [facility] CPT-08947 Level 3 Est. Patient 19:43:34 CDT Mitch luis [facility] CPT-75178 Level 4 Est. Patient 09:30:18 CDT Mitch Castellano [facility] CPT-41791 Level 3 Est. Patient 15:10:14 CDT Joe kamara [facility] CPT-20555 Level 3 Est. Patient 15:03:46 CDT Joe kamara [facility] CPT-44532 Level 3 Est. Patient 14:21:06 CDT Mitch luis [facility] CPT-73175 Level 3 Est. Patient 14:52:06 CDT Joe kamara [facility] CPT-09707 Level 3 Est. 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 Patient 09:37:15 CDT Mitch luis [facility] CPT-33955 Level 3 Est. Patient 17:01:00 QUENCHER OPERATOR Mitch W L ee [facility] CPT-41281 Level 3 Est. Patient 13:53:19 QUENCHER OPERATOR Mitch luis DO [facility] CPT-27139 Level 3 Est. Patient 19:19:37 QUENCHER OPERATOR Mitch luis DO [facility] CPT-55333 Level 3 Est. Patient 13:25:53 QUENCHER OPERATOR Tavo toure MD [facility] CPT-90057 Level 3 Est. Patient 18:17:28 CDT Mitch luis [facility] CPT-74107 Level 3 Est. Patient 15:22:57 CDT Mitch luis [facility]-99306 Level 3 Est. Patient 18:21:50 CDT Mitch luis [facility] CPT-56178 Level 3 Est. Patient 18:20:38 CDT Mitch luis [facility] CPT-24845 Level 3 Est. Patient 15:37:55 CDT Mitch luis [facility] CPT-44062 Level 2 Est. Patient 15:54:44 CDT Carmine benton MD [facility]-70713 Level 3 Est. Patient 21:46:01 QUENCHER OPERATOR Mitch luis [facility] CPT-33922 Level 3 Est. Patient 22:15:50 CDT Mitch luis [facility] CPT-94953 Level 3 Est. Patient 10:48:15 CDT Mitch Arnol luis [facility] CPT-91252 Level 3 Est. Patient 23:20:57 CDT Tavo toure MD [facility]-02543 Level 3 Est. Patient 16:26:13 CDT Mitch luis [facility] Procedures Code Procedure Name Date Entry Date Standard Desc ription CPT-JTINJ Asp/Joint Injection 18:47:02 CDT CPT-59173 Venipuncture Draw Fee 09:26:17 CDT CPT-52064 PT/INR - LAB USE ONLY 13:32:49 QUENCHER OPERATOR CPT-69639 Venipuncture Draw Fee 13:32:49 QUENCHER OPERATOR CPT-66493 PT/INR - LAB USE ONLY 10:34:49 QUENCHER OPERATOR CPT-75725 Venipuncture Draw Fee 10:34:48 QUENCHER OPERATOR CPT-28163 PT/INR - LAB USE ONLY 09:22:03 QUENCHER OPERATOR CPT-98183 Venipuncture Draw Fee 09:22:02 QUENCHER OPERATOR CPT-17343 Hemoccult IFOBT - LAB USE ONLY 10:27:22 CDT CPT-85531 Venipuncture Draw Fee 08:27:08 CDT CPT-40123 Liver Profile - LAB USE ONLY 08:27:07 CDT 2 CPT-60614 Microalbumin - LAB USE ONLY 08:27:07 CDT 20 25/05/09 CPT-79451 PT/INR - LAB USE ONLY 08:27:07 CDT CPT-46283 HGBA1C - LAB USE ONLY 08:27:07 CDT CPT-00451 CBC - LAB USE ONLY 08:27:07 CDT CPT-79330 Venipuncture Draw Fee 11:09:14 CDT CPT-12782 Venipuncture Draw Fee 08:32:21 QUENCHER OPERATOR CPT-94213 Venipuncture Draw Fee 09:38:56 QUENCHER OPERATOR CPT-41127 No Charge Offi Visit 21:36:07 CDT 1 CPT-50926 Venipuncture Draw Fee 10:13:28 QUENCHER OPERATOR CPT-36816 Venipuncture Draw Fee 08:31:11 CDT CPT-46692 Aspir/Inject Med Joint 18:17:28 CDT CPT-95766 Venipuncture Draw Fee 10:13:30 CDT CPT-72680 Venipuncture Draw Fee 08:31:43 QUENCHER OPERATOR CPT-JTINJ Joint Injection 18:34:50 CDT CPT-27498 Knee 3V 12:25:09 CDT CPT-72891 Venipuncture Draw Fee 12:15:57 CDT CPT-060 Medical Surveillance Exam 21:31:43 CDT 2011 CPT-62768 Venipuncture Draw Fee 08:32:05 QUENCHER OPERATOR CPT-OV Office Visit 18:19:06 CDT
--- OUTSIDE RECORDS SUMMARY | 2020-01-18 13:31 | XMS REPORT | Clinical Summary ---
Author Author Admin, Mitch Leon Organization [facility] Address Unknown Phone Unavailable Allergies, Adverse Reactions, Alerts Allergy Name Reaction Description Start Date Severity Status Pr ovider PENICILLIN HIVES Critical Active Mitch Ubrina DO Conditions or Problems Problem Name Problem [...] s HEALTH MAINTENANCE EXAM V70.0 Active Mitch Mearz DO Routine general medical examination at a health care facility CORONARY HEART DISEASE 414.00 Active Mitch Urbina DO Coronary atherosclerosis of unspecified type of vessel, [place] or graft EDEMA 782.3 Resolved Mitch Urbina [...] by mouth twice a day 2017 FAMOTIDINE 06325820036 No Longer Active Mitch Urbina DO Active COLCRYS 0.6 MG ORAL TABLET 1 tab qid prn gout C OLCHICINE 05861726339 No Longer Active Mitch Urbina DO Active GLIMEPIRIDE 2 MG ORAL TABLET 1 po BID GLIMEPIRID E 39015527413 Active Renee Oconnor LPN Active KEFLEX 500 MG ORAL CAPSULE 1 po qid CEPHALEXI N 26897029598 No Longer Active Mitch Urbina DO Active LOSARTAN POTASSIUM 100 MG ORAL TABLET 1 pill by mouth daily, for blood pressure LOSARTAN POTASSIUM 18398937447 Active Mitch Urbina DO Active AMLODIPINE BESYLATE 5 MG ORAL TABLET 1 tablet by mouth daily 201 01/20/04 AMLODIPINE BESYLATE 43215016628 No Longer Active Joe fulton APRN Active MITIGARE 0.6 MG ORAL CAPSULE 2 capsules at onset of go ut pain, then take one capsule at 1 hour if symptoms persist. COLCHICINE 59 959754568 Active Mitch Urbina DO Active COUMADIN 1 MG ORAL TABLET 2 tabs orally daily with the 5mg tab to equal 7mg daily WARFARIN SODIUM 55167368011 Active Mitch Urbina DO Active INVOKANA 100 MG ORAL TABLET 1 tablet orally daily CANAGLIFLOZIN 14221602766 Active Mitch Urbina DO Active MINOXIDIL 2.5 MG ORAL TABLET 1 tablet daily for high blood press ure MINOXIDIL 75376013790 Active Renee Oconnor LPN Active MECLIZINE HCL 25 MG ORAL TABLET 1 po tid 3 days, then 1/2 ta b tid 3 days MECLIZINE HCL 59173433887 No Longer Active Corey SEGURA Active ALLOPURINOL 300 MG ORAL TABLET Take 1 tablet by mouth daily 2012 ALLOPURINOL 86802374295 No Longer Active Corey SEGURA Active CLONIDINE HCL 0.1 MG ORAL TABLET 1 po bid 7 days, then 1/2 t ab po bid 7 days CLONIDINE HCL 33159460061 No Longer Active Corey SEGURA Active COUMADIN 5 MG ORAL TABLET 1 tab PO daily WARFAR IN SODIUM 89249505059 Active Mitch Urbina DO Active COUMADIN 4 MG ORAL TABLET 1 tablet daily WARFAR IN SODIUM 97788993904 No Longer Active Corey SEGURA Active POLYTRIM 92959-1.1 UNIT/ML-% OPHTHALMIC SOLUTION 1 rui p in affected eye every 3 hours while awake x 7 days POLYMYXIN B-TRIMETHOP RIM 96730691863 No Longer Active Corey SEGURA Active LOSARTAN POTASSIUM-HCTZ 100-12.5 MG ORAL TABLET 1 by m outh daily for high blood pressure LOSARTAN POTASSIUM-HCTZ 65816621876 No Longer A ctive Mitch Urbina DO Active LISINOPRIL-HYDROCHLOROTHIAZIDE 20-12.5 MG ORAL TABLET 1 tab by m outh daily LISINOPRIL-HYDROCHLOROTHIAZIDE 32840875483 No Longer Active Mitch Urbina DO Active LISINOPRIL 20 MG ORAL TABLET 1 tab po at HS LIS INOPRIL 97342814874 No Longer Active Mitch Urbina DO Active COUMADIN 5 MG ORAL TABLET 1 by mouth every other day 2 WARFARIN SODIUM 28051537122 No Longer Active Mitch Urbina DO Active COUMADIN 6 MG ORAL TABLET 1 by mouth every other day 2 WARFARIN SODIUM 46197806087 No Longer Active Mitch Urbina DO Active SIMVASTATIN 40 MG ORAL TABLET 1 tab daily at bedtime SIMVASTATIN 97459825361 Active Renee Oconnor LPN Active SIMVASTATIN 20 MG ORAL TABLET 1 tab daily at bedtime 2 SIMVASTATIN 47607070800 No Longer Active Mitch Urbina DO Active LOVENOX 100 MG/ML SUBCUTANEOUS SOLUTION One injection twice a da y ENOXAPARIN SODIUM 75501279442 No Longer Active Carmine Yusuf MD Active JANUVIA 50 MG ORAL TABLET Take one by mouth daily SITAGLIPTIN PHOSPHATE 10154051266 Active Mitch Urbina DO Active JANUVIA 100 MG ORAL TABLET 1/2 by mouth every day 2011 SITAGLIPTIN PHOSPHATE 80033585700 No Longer Active Bijal Segal RN Acti ve METFORMIN HCL 500 MG ORAL TABLET 2 by mouth twice daily METFORMIN HCL 90300159119 Active Mitch Urbina DO Active COLCRYS 0.6 MG ORAL TABLET 1 po q 6 hours prn gout pain COLCHICINE 27574647371 No Longer Active Camila Reese Active LISINOPRIL 5 MG ORAL TABLET 1 by mouth every day 11/17 LISINOPRIL 04804138396 No Longer Active Nguyen Perez Active KLOR-CON 20 MEQ ORAL PACKET Take one by mouth daily 09/10/08 POTASSIUM CHLORIDE 50144634501 No Longer Active Nguyen Perez Active FUROSEMIDE 40 MG ORAL TABLET 1 by mouth daily F UROSEMIDE 48411264694 No Longer Active Nguyen Perez Active PROVIGIL 200 MG ORAL TABLET 1/2 tab po q day MODA FINIL 80671942160 Active Renee Oconnor LPN Active PROVIGIL 100 MG ORAL TABLET Take one by mouth daily 08/20/04 MODAFINIL 93332045957 No Longer Active Mitch Urbina DO Active BACTRIM DS 800-160 MG ORAL TABLET 1 tab by mouth twice daily 201 10/19/09 TRIMETHOPRIM-SULFAMETHOXAZOLE 41596808269 No Longer Active Elian Hays MD Active ADULT ASPIRIN LOW STRENGTH 81 MG ORAL TABLET DISINTEGR ATING 1 by mouth every daily ASPIRIN 10855830180 Active Mitch Urbina DO Ac tive METOPROLOL TARTRATE 50 MG ORAL TABLET 1 by mouth twice daily METOPROLOL TARTRATE 90954837519 Active Mitch Urbina DO Active BACTRIM DS 800-160 MG ORAL TABLET 1 tab by mouth twice daily 201 10/19/09 BACTRIM DS 800-160 MG ORAL TABLET 827085 TRIMETHOPRIM-SULFAMETHOXAZOLE Inactive PROVIGIL 100 MG ORAL TABLET Take one by mouth daily 08/20/04 PROVIGIL 100 MG ORAL TABLET 079872 MODAFINIL Inactive FUROSEMIDE 40 MG ORAL TABLET 1 by mouth daily FUROSEMIDE 40 MG ORAL TABLET 771274 FUROSEMIDE Inactive KLOR-CON 20 MEQ ORAL PACKET Take one by mouth daily 09/10/08 KLOR- CON 20 MEQ ORAL PACKET 7080757 POTASSIUM CHLORIDE Inactive LISINOPRIL 5 MG ORAL TABLET 1 by mouth every day 11/17 LISINOPRIL 5 MG ORAL TABLET 118474 LISINOPRIL Inactive COLCRYS 0.6 MG ORAL TABLET 1 po q 6 hours prn gout pain COLCRYS 0.6 MG ORAL TABLET 548931 COLCHICINE Inactive JANUVIA 100 MG ORAL TABLET 1/2 by mouth every day 2011 JANUVIA 100 MG ORAL TABLET SITAGLIPTIN PHOSPHATE Inactive SIMVASTATIN 20 MG ORAL TABLET 1 tab daily at bedtime 2 SIMVASTATIN 20 MG ORAL TABLET 447107 SIMVASTATIN Inactive COUMADIN 6 MG ORAL TABLET 1 by mouth every other day COUMADIN 6 MG ORAL TABLET 165226 WARFARIN SODIUM Inactive COUMADIN 5 MG ORAL TABLET 1 by mouth every other day 2 COUMADIN 5 MG ORAL TABLET 975857 WARFARIN SODIUM Inactive LISINOPRIL 20 MG ORAL TABLET 1 tab po at HS LISINOPRIL 20 MG ORAL TABLET 536975 LISINOPRIL Inactive LISINOPRIL-HYDROCHLOROTHIAZIDE 20-12.5 MG ORAL TABLET 1 tab by m outh daily LISINOPRIL-HYDROCHLOROTHIAZIDE 20-12.5 MG ORAL TABLET 469690 LISINOPRIL-HYDROCHLOROTHIAZIDE Inactive POLYTRIM 60373-2.1 UNIT/ML-% OPHTHALMIC SOLUTION 1 rui p in affected eye every 3 hours while awake x 7 days POLYTRIM 1000 0-0.1 UNIT/ML-% OPHTHALMIC SOLUTION 746694 POLYMYXIN B-TRIMETHOPRIM Inactive COUMADIN 4 MG ORAL TABLET 1 tablet daily COUMADIN 4 MG ORAL TABLET 363223 WARFARIN SODIUM Inactive CLONIDINE HCL 0.1 MG ORAL TABLET 1 po bid 7 days, then 1/2 t ab po bid 7 days CLONIDINE HCL 0.1 MG ORAL TABLET 703676 CLONIDIN E HCL Inactive ALLOPURINOL 300 MG ORAL TABLET Take 1 tablet by mouth daily 2012 ALLOPURINOL 300 MG ORAL TABLET 849923 ALLOPURINOL I nactive MECLIZINE HCL 25 MG ORAL TABLET 1 po tid 3 days, then 1/2 ta b tid 3 days MECLIZINE HCL 25 MG ORAL TABLET 531118 MECLIZINE HCL Inactive AMLODIPINE BESYLATE 5 MG ORAL TABLET 1 tablet by mouth daily 201 01/20/04 AMLODIPINE BESYLATE 5 MG ORAL TABLET 609487 AMLODIPINE BESYLATE Inactive KEFLEX 500 MG ORAL CAPSULE 1 po qid K EFLEX 500 MG ORAL CAPSULE 634546 CEPHALEXIN Inactive COLCRYS 0.6 MG ORAL TABLET 1 tab qid prn gout COLCRYS 0.6 MG ORAL TABLET 750817 COLCHICINE Inactive FAMOTIDINE 20 MG ORAL TABLET by mouth twice a day 2017 FAMOTIDINE 20 MG ORAL TABLET 971734 FAMOTIDINE Inactive LOVENOX 100 MG/ML SUBCUTANEOUS SOLUTION One injection twice a da y LOVENOX 100 MG/ML SUBCUTANEOUS SOLUTION 282332 ENOXAPAR IN SODIUM Inactive Vital Signs Date [...] - Chem istry sodium, serum 141 mmol/L 076-775 6214/08/07 potassium, serum 4.5 mmol/L 3.5-5.2 chloride, serum [...] HGBA1C - Chemistry cholesterol, serum 136 mg/dL 857-681 1145/12/06 triglyceride, serum, fasting 247 mg/dL 30-200 HDL cholesterol, serum 41 mg/dL 32-60 LDL cholesterol, serum 46 mg/dL 0-130 aspartate aminotransferase (SGOT), serum 22 U/L 15-37 alanine aminotransferase (SGPT), serum 30 U/L 12-78 bilirubin, serum, total 0.80 mg/dL 0.00-1.00 hemoglobin A1C, blood, as % of total hemoglobin 6.4 % 4.3-6.0 Encounters Code Encounter Date Provider Facility CPT-05271 Level 3 Est. Patient 18:25:53 CDT Mitch luis [facility] [address] CPT-29896 Level 3 Est. Patient 19:43:34 CDT Mitch luis [facility] [address] CPT-53048 Level 4 Est. Patient 09:30:18 CDT Mitch Castellano [facility] CPT-48094 Level 3 Est. Patient 15:10:14 CDT Joe kamara [facility] CPT-92676 Level 3 Est. Patient 15:03:46 CDT Joe kamara [facility] CPT-07992 Level 3 Est. Patient 14:21:06 CDT Mitch luis [facility] [address] CPT-74613 Level 3 Est. Patient 14:52:06 CDT Joe kamara [facility] CPT-69781 Level 3 Est. Patient 09:34:30 [employer] Mitch Castellano [facility] CPT-00801 Level 3 Est. Patient 09:37:15 CDT Mitch luis [facility] [address] CPT-77137 Level 3 Est. 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 Patient 13:53:19 TILE AND MOTTLE SUPERVISOR Mitch luis DO [facility] CPT-93302 Level 3 Est. Patient 19:19:37 TILE [employer] MOTTLE SUPERVISOR Mitch luis DO [facility] CPT-39007 Level 3 Est. Patient 13:25:53 TI[employer]OTTLE SUPERVISOR Tavo toure MD [facility] CPT-90886 Level 3 Est. Patient 18:17:28 CDT Mitch luis [facility] CPT-92043 Level 3 Est. Patient 15:22:57 CDT iMtch luis [facility]-47827 Level 3 Est. Patient 18:21:50 CDT Mitch luis [facility] [address] CPT-25636 Level 3 Est. Patient 18:20:38 CDT Mitch luis [facility] [address] CPT-87361 Level 3 Est. Patient 15:37:55 CDT Mitch luis [facility] CPT-42641 Level 2 Est. Patient 15:54:44 CDT Carmine benton MD [facility]-68456 Level 3 Est. Patient 21:46:01 TI[employer]LE SUPERVISOR Mitch luis [facility] CPT-53425 Level 3 Est. Patient 22:15:50 CDT Mitch luis [facility] CPT-37706 Level 3 Est. Patient 10:48:15 CDT Mitch Arnol luis [facility] CPT-51219 Level 3 Est. Patient 23:20:57 CDT Tavo toure MD [facility]-98861 Level 3 Est. Patient 16:26:13 CDT Mitch luis [facility] Procedures Code Procedure Name Date Entry Date Standard Desc ription CPT-JTINJ Asp/Joint Injection 18:47:02 CDT CPT-69692 Venipuncture Draw Fee 09:26:17 CDT CPT-92763 PT/INR - LAB USE ONLY 13:32:49 [employer] SUPERVISOR CPT-50239 Venipuncture Draw Fee 13:32:49 TI[employer] AND MOTTLE SUPERVISOR CPT-21990 PT/INR - LAB USE ONLY 10:34:49 TI[employer] M[employer]LE SUPERVISOR CPT-18647 Venipuncture Draw Fee 10:34:48 TI[employer] M[employer]LE SUPERVISOR CPT-60119 PT/INR - LAB USE ONLY 09:22:03 TI[employer] MOTTLE SUPERVISOR CPT-67920 Venipuncture Draw Fee 09:22:02 TI[employer] M[employer]LE SUPERVISOR CPT-93633 Hemoccult IFOBT - LAB USE ONLY 10:27:22 CDT CPT-82357 Venipuncture Draw Fee 08:27:08 CDT CPT-57456 Liver Profile - LAB USE ONLY 08:27:07 CDT 2 CPT-25465 Microalbumin - LAB USE ONLY 08:27:07 CDT 20 25/05/09 CPT-34443 PT/INR - LAB USE ONLY 08:27:07 CDT CPT-60274 HGBA1C - LAB USE ONLY 08:27:07 CDT CPT-08599 CBC - LAB USE ONLY 08:27:07 CDT CPT-64885 Venipuncture Draw Fee 11:09:14 CDT CPT-76425 Venipuncture Draw Fee 08:32:21 TI[employer]LE SUPERVISOR CPT-45735 Venipuncture Draw Fee 09:38:56 [employer]LE SUPERVISOR CPT-49549 No Charge Offi Visit 21:36:07 CDT 1 CPT-86658 Venipuncture Draw Fee 10:13:28 [employer] SUPERVISOR CPT-39465 Venipuncture Draw Fee 08:31:11 CDT CPT-64377 Aspir/Inject Med Joint 18:17:28 CDT CPT-79634 Venipuncture Draw Fee 10:13:30 CDT CPT-63262 Venipuncture Draw 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
--- OUTSIDE RECORDS SUMMARY | 2020-01-18 13:32 | XMS REPORT | Clinical Summary ---
Author Author Admin, Mitch Leon Organization [facility] [employer] Address Unknown Phone Unavailable Allergies, Adverse [...] Coronary atherosclerosis of unspecified type of vessel, [place] or graft EDEMA 782.3 Resolved Mitch [...] by mouth twice a day 2017 FAMOTIDINE 80427988954 No Longer Active Mitch Urbina DO Active COLCRYS 0.6 MG ORAL TABLET 1 tab qid prn gout C OLCHICINE 35175464480 No Longer Active Mitch Urbina DO Active GLIMEPIRIDE 2 MG ORAL TABLET 1 po BID GLIMEPIRID E 14822648626 Active Renee Oconnor LPN Active KEFLEX 500 MG ORAL CAPSULE 1 po qid CEPHALEXI N 79308834632 No Longer Active Mitch Urbina DO Active LOSARTAN POTASSIUM 100 MG ORAL TABLET 1 pill by mouth daily, for blood pressure LOSARTAN POTASSIUM 73703637223 Active Mitch Urbina DO Active AMLODIPINE BESYLATE 5 MG ORAL TABLET 1 tablet by mouth daily 201 01/20/04 AMLODIPINE BESYLATE 53916749394 No Longer Active Joe fulton APRN Active MITIGARE 0.6 MG ORAL CAPSULE 2 capsules at onset of go ut pain, then take one capsule at 1 hour if symptoms persist. COLCHICINE 59 059823357 Active Mitch Urbina DO Active COUMADIN 1 MG ORAL TABLET 2 tabs orally daily with the 5mg tab to equal 7mg daily WARFARIN SODIUM 37711391103 Active Mitch Urbina DO Active INVOKANA 100 MG ORAL TABLET 1 tablet orally daily CANAGLIFLOZIN 45185821959 Active Mitch Urbina DO Active MINOXIDIL 2.5 MG ORAL TABLET 1 tablet daily for high blood press ure MINOXIDIL 39086284515 Active Renee Oconnor LPN Active MECLIZINE HCL 25 MG ORAL TABLET 1 po tid 3 days, then 1/2 ta b tid 3 days MECLIZINE HCL 97610619464 No Longer Active Corey SEGURA Active ALLOPURINOL 300 MG ORAL TABLET Take 1 tablet by mouth daily 2012 ALLOPURINOL 07046140825 No Longer Active Corey SEGURA Active CLONIDINE HCL 0.1 MG ORAL TABLET 1 po bid 7 days, then 1/2 t ab po bid 7 days CLONIDINE HCL 26384819185 No Longer Active Corey SEGURA Active COUMADIN 5 MG ORAL TABLET 1 tab PO daily WARFAR IN SODIUM 94307591491 Active Mitch Urbina DO Active COUMADIN 4 MG ORAL TABLET 1 tablet daily WARFAR IN SODIUM 62739875193 No Longer Active Corey SEGURA Active POLYTRIM 26808-4.1 UNIT/ML-% OPHTHALMIC SOLUTION 1 rui p in affected eye every 3 hours while awake x 7 days POLYMYXIN B-TRIMETHOP RIM 69989668225 No Longer Active Corey SEGURA Active LOSARTAN POTASSIUM-HCTZ 100-12.5 MG ORAL TABLET 1 by m outh daily for high blood pressure LOSARTAN POTASSIUM-HCTZ 67825901557 No Longer A ctive Mitch Urbina DO Active LISINOPRIL-HYDROCHLOROTHIAZIDE 20-12.5 MG ORAL TABLET 1 tab by m outh daily LISINOPRIL-HYDROCHLOROTHIAZIDE 25866079357 No Longer Active Mitch Urbina DO Active LISINOPRIL 20 MG ORAL TABLET 1 tab po at HS LIS INOPRIL 26393546553 No Longer Active Mitch Urbina DO Active COUMADIN 5 MG ORAL TABLET 1 by mouth every other day 2 WARFARIN SODIUM 29574437306 No Longer Active Mitch Urbina DO Active COUMADIN 6 MG ORAL TABLET 1 by mouth every other day 2 WARFARIN SODIUM 85960952390 No Longer Active Mitch Urbina DO Active SIMVASTATIN 40 MG ORAL TABLET 1 tab daily at bedtime SIMVASTATIN 89961435218 Active Renee Oconnor LPN Active SIMVASTATIN 20 MG ORAL TABLET 1 tab daily at bedtime 2 SIMVASTATIN 95933521888 No Longer Active Mitch Urbina DO Active LOVENOX 100 MG/ML SUBCUTANEOUS SOLUTION One injection twice a da y ENOXAPARIN SODIUM 45790892400 No Longer Active Carmine Yusuf MD Active JANUVIA 50 MG ORAL TABLET Take one by mouth daily SITAGLIPTIN PHOSPHATE 56939433319 Active Mitch Urbina DO Active JANUVIA 100 MG ORAL TABLET 1/2 by mouth every day 2011 SITAGLIPTIN PHOSPHATE 90971826643 No Longer Active Bijal Segal RN Acti ve METFORMIN HCL 500 MG ORAL TABLET 2 by mouth twice daily METFORMIN HCL 36864502800 Active Mitch Urbina DO Active COLCRYS 0.6 MG ORAL TABLET 1 po q 6 hours prn gout pain COLCHICINE 86779884255 No Longer Active Camila Reese Active LISINOPRIL 5 MG ORAL TABLET 1 by mouth every day 11/17 LISINOPRIL 49384132709 No Longer Active Nguyen Perez Active KLOR-CON 20 MEQ ORAL PACKET Take one by mouth daily 09/10/08 POTASSIUM CHLORIDE 27964327076 No Longer Active Nguyen Perez Active FUROSEMIDE 40 MG ORAL TABLET 1 by mouth daily F UROSEMIDE 71549426282 No Longer Active Nguyen Perez Active PROVIGIL 200 MG ORAL TABLET 1/2 tab po q day MODA FINIL 05252557519 Active Renee Oconnor LPN Active PROVIGIL 100 MG ORAL TABLET Take one by mouth daily 08/20/04 MODAFINIL 56638940030 No Longer Active Mitch Urbina DO Active BACTRIM DS 800-160 MG ORAL TABLET 1 tab by mouth twice daily 201 10/19/09 TRIMETHOPRIM-SULFAMETHOXAZOLE 36618722206 No Longer Active Elian Hays MD Active ADULT ASPIRIN LOW STRENGTH 81 MG ORAL TABLET DISINTEGR ATING 1 by mouth every daily ASPIRIN 23373618374 Active Mitch Urbina DO Ac tive METOPROLOL TARTRATE 50 MG ORAL TABLET 1 by mouth twice daily METOPROLOL TARTRATE 76690206941 Active Mitch Urbina DO Active BACTRIM DS 800-160 MG ORAL TABLET 1 tab by mouth twice daily 201 10/19/09 BACTRIM DS 800-160 MG ORAL TABLET 588147 TRIMETHOPRIM-SULFAMETHOXAZOLE Inactive PROVIGIL 100 MG ORAL TABLET Take one by mouth daily 08/20/04 PROVIGIL 100 MG ORAL TABLET 841099 MODAFINIL Inactive FUROSEMIDE 40 MG ORAL TABLET 1 by mouth daily FUROSEMIDE 40 MG ORAL TABLET 209825 FUROSEMIDE Inactive KLOR-CON 20 MEQ ORAL PACKET Take one by mouth daily 09/10/08 KLOR- CON 20 MEQ ORAL PACKET 2387826 POTASSIUM CHLORIDE Inactive LISINOPRIL 5 MG ORAL TABLET 1 by mouth every day 11/17 LISINOPRIL 5 MG ORAL TABLET 934753 LISINOPRIL Inactive COLCRYS 0.6 MG ORAL TABLET 1 po q 6 hours prn gout pain COLCRYS 0.6 MG ORAL TABLET 871795 COLCHICINE Inactive JANUVIA 100 MG ORAL TABLET 1/2 by mouth every day 2011 JANUVIA 100 MG ORAL TABLET SITAGLIPTIN PHOSPHATE Inactive SIMVASTATIN 20 MG ORAL TABLET 1 tab daily at bedtime 2 SIMVASTATIN 20 MG ORAL TABLET 791816 SIMVASTATIN Inactive COUMADIN 6 MG ORAL TABLET 1 by mouth every other day COUMADIN 6 MG ORAL TABLET 522801 WARFARIN SODIUM Inactive COUMADIN 5 MG ORAL TABLET 1 by mouth every other day 2 COUMADIN 5 MG ORAL TABLET 327594 WARFARIN SODIUM Inactive LISINOPRIL 20 MG ORAL TABLET 1 tab po at HS LISINOPRIL 20 MG ORAL TABLET 680614 LISINOPRIL Inactive LISINOPRIL-HYDROCHLOROTHIAZIDE 20-12.5 MG ORAL TABLET 1 tab by m outh daily LISINOPRIL-HYDROCHLOROTHIAZIDE 20-12.5 MG ORAL TABLET 917991 LISINOPRIL-HYDROCHLOROTHIAZIDE Inactive POLYTRIM 06121-2.1 UNIT/ML-% OPHTHALMIC SOLUTION 1 rui p in affected eye every 3 hours while awake x 7 days POLYTRIM 1000 0-0.1 UNIT/ML-% OPHTHALMIC SOLUTION 329980 POLYMYXIN B-TRIMETHOPRIM Inactive COUMADIN 4 MG ORAL TABLET 1 tablet daily COUMADIN 4 MG ORAL TABLET 265766 WARFARIN SODIUM Inactive CLONIDINE HCL 0.1 MG ORAL TABLET 1 po bid 7 days, then 1/2 t ab po bid 7 days CLONIDINE HCL 0.1 MG ORAL TABLET 127073 CLONIDIN E HCL Inactive ALLOPURINOL 300 MG ORAL TABLET Take 1 tablet by mouth daily 2012 ALLOPURINOL 300 MG ORAL TABLET 755794 ALLOPURINOL I nactive MECLIZINE HCL 25 MG ORAL TABLET 1 po tid 3 days, then 1/2 ta b tid 3 days MECLIZINE HCL 25 MG ORAL TABLET 704219 MECLIZINE HCL Inactive AMLODIPINE BESYLATE 5 MG ORAL TABLET 1 tablet by mouth daily 201 01/20/04 AMLODIPINE BESYLATE 5 MG ORAL TABLET 311982 AMLODIPINE BESYLATE Inactive KEFLEX 500 MG ORAL CAPSULE 1 po qid K EFLEX 500 MG ORAL CAPSULE 556040 CEPHALEXIN Inactive COLCRYS 0.6 MG ORAL TABLET 1 tab qid prn gout COLCRYS 0.6 MG ORAL TABLET 156628 COLCHICINE Inactive FAMOTIDINE 20 MG ORAL TABLET by mouth twice a day 2017 FAMOTIDINE 20 MG ORAL TABLET 563997 FAMOTIDINE Inactive LOVENOX 100 MG/ML SUBCUTANEOUS SOLUTION One injection twice a da y LOVENOX 100 MG/ML SUBCUTANEOUS SOLUTION 124051 ENOXAPAR IN SODIUM Inactive Vital Signs Date [...] - Chem istry sodium, serum 141 mmol/L 346-697 5060/08/07 potassium, serum 4.5 mmol/L 3.5-5.2 chloride, serum [...] HGBA1C - Chemistry cholesterol, serum 136 mg/dL 171-361 1474/12/06 triglyceride, serum, fasting 247 mg/dL 30-200 HDL cholesterol, serum 41 mg/dL 32-60 LDL cholesterol, serum 46 mg/dL 0-130 aspartate aminotransferase (SGOT), serum 22 U/L 15-37 alanine aminotransferase (SGPT), serum 30 U/L 12-78 bilirubin, serum, total 0.80 mg/dL 0.00-1.00 hemoglobin A1C, blood, as % of total hemoglobin 6.4 % 4.3-6.0 Encounters Code Encounter Date Provider Facility CPT-20932 Level 3 Est. Patient 18:25:53 CDT Mitch luis [facility] CPT-57934 Level 3 Est. Patient 19:43:34 CDT Mitch luis [facility] CPT-47091 Level 4 Est. Patient 09:30:18 CDT Mitch [facility] CPT-11257 Level 3 Est. Patient 15:10:14 CDT Joe kamara [facility] CPT-79873 Level 3 Est. Patient 15:03:46 CDT Joe kamara [facility] CPT-04768 Level 3 Est. Patient 14:21:06 CDT Mitch luis [facility] CPT-33208 Level 3 Est. Patient 14:52:06 CDT Joe kamara [facility] CPT-47201 Level 3 Est. Patient 09:34:30 CUT PLUG PACKER Mitch [facility] CPT-88663 Level 3 Est. Patient 09:37:15 CDT Mitch luis [facility] CPT-24310 Level 3 Est. Patient 17:01:00 CUT PLUG PACKER Mitch W L ee [facility] CPT-60325 Level 3 Est. Patient 13:53:19 CUT PLUG PACKER Mitch luis DO [facility] CPT-45862 Level 3 Est. Patient 19:19:37 CUT PLUG PACKER Mitch luis DO [facility] CPT-03346 Level 3 Est. Patient 13:25:53 CUT PLUG PACKER Tavo toure MD [facility] CPT-69579 Level 3 Est. Patient 18:17:28 CDT Mitch luis [facility] CPT-03108 Level 3 Est. Patient 15:22:57 CDT Mitch luis [facility]-00883 Level 3 Est. Patient 18:21:50 CDT Mitch luis [facility] CPT-67662 Level 3 Est. Patient 18:20:38 CDT Mitch luis [facility] CPT-28732 Level 3 Est. Patient 15:37:55 CDT Mitch luis [facility] CPT-38623 Level 2 Est. Patient 15:54:44 CDT Carmine benton MD [facility]-49932 Level 3 Est. Patient 21:46:01 CUT PLUG PACKER iMtch luis [facility] CPT-64502 Level 3 Est. Patient 22:15:50 CDT Mitch luis [facility] CPT-74396 Level 3 Est. Patient 10:48:15 CDT Mitch Arnol luis [facility] CPT-17432 Level 3 Est. Patient 23:20:57 CDT Tavo toure MD [facility]-54182 Level 3 Est. Patient 16:26:13 CDT Mitch luis [facility] Procedures Code Procedure Name Date Entry Date Standard Desc ription CPT-JTINJ Asp/Joint Injection 18:47:02 CDT CPT-10146 Venipuncture Draw Fee 09:26:17 CDT CPT-38144 PT/INR - LAB USE ONLY 13:32:49 CUT PLUG PACKER CPT-56831 Venipuncture Draw Fee 13:32:49 CUT PLUG PACKER CPT-77447 PT/INR - LAB USE ONLY 10:34:49 CUT PLUG PACKER CPT-19821 Venipuncture Draw Fee 10:34:48 CUT PLUG PACKER CPT-27070 PT/INR - LAB USE ONLY 09:22:03 CUT PLUG PACKER CPT-47869 Venipuncture Draw Fee 09:22:02 CUT PLUG PACKER CPT-42537 Hemoccult IFOBT - LAB USE ONLY 10:27:22 CDT CPT-96241 Venipuncture Draw Fee 08:27:08 CDT CPT-48593 Liver Profile - LAB USE ONLY 08:27:07 CDT 2 CPT-04024 Microalbumin - LAB USE ONLY 08:27:07 CDT 20 25/05/09 CPT-93428 PT/INR - LAB USE ONLY 08:27:07 CDT CPT-65624 HGBA1C - LAB USE ONLY 08:27:07 CDT CPT-18016 CBC - LAB USE ONLY 08:27:07 CDT CPT-38717 Venipuncture Draw Fee 11:09:14 CDT CPT-05367 Venipuncture Draw Fee 08:32:21 CUT PLUG PACKER CPT-47634 Venipuncture Draw Fee 09:38:56 CUT PLUG PACKER CPT-70790 No Charge Offi Visit 21:36:07 CDT 1 CPT-12421 Venipuncture Draw Fee 10:13:28 CUT PLUG PACKER CPT-15535 Venipuncture Draw Fee 08:31:11 CDT CPT-27014 Aspir/Inject Med Joint 18:17:28 CDT CPT-22964 Venipuncture Draw Fee 10:13:30 CDT CPT-80181 Venipuncture Draw Fee 08:31:43 CUT PLUG PACKER CPT-JTINJ Joint Injection 18:34:50 CDT CPT-38707 Knee 3V 12:25:09 CDT CPT-25009 Venipuncture Draw Fee 12:15:57 CDT CPT-060 Medical Surveillance Exam 21:31:43 CDT 2011 CPT-48267 Venipuncture Draw Fee 08:32:05 CUT PLUG PACKER CPT-OV Office Visit 18:19:06 CDT
--- OUTSIDE RECORDS SUMMARY | 2020-01-18 13:32 | XMS REPORT | Clinical Summary ---
Author Author Admin, Mitch Leon Organization [facility] [employer] Address Unknown Phone Unavailable Allergies, Adverse Reactions, [...] Coronary atherosclerosis of unspecified type of vessel, [place] or graft EDEMA 782.3 Resolved Mitch Urbina [...] by mouth twice a day 2017 FAMOTIDINE 85037857845 No Longer Active Mitch Urbina DO Active COLCRYS 0.6 MG ORAL TABLET 1 tab qid prn gout C OLCHICINE 13502985468 No Longer Active Mitch Urbina DO Active GLIMEPIRIDE 2 MG ORAL TABLET 1 po BID GLIMEPIRID E 17694856622 Active Renee Oconnor LPN Active KEFLEX 500 MG ORAL CAPSULE 1 po qid CEPHALEXI N 37572639346 No Longer Active Mitch Urbina DO Active LOSARTAN POTASSIUM 100 MG ORAL TABLET 1 pill by mouth daily, for blood pressure LOSARTAN POTASSIUM 65832009986 Active Mitch Urbina DO Active AMLODIPINE BESYLATE 5 MG ORAL TABLET 1 tablet by mouth daily 201 01/20/04 AMLODIPINE BESYLATE 12768301455 No Longer Active Joe fulton APRN Active MITIGARE 0.6 MG ORAL CAPSULE 2 capsules at onset of go ut pain, then take one capsule at 1 hour if symptoms persist. COLCHICINE 59 325427038 Active Mitch Urbina DO Active COUMADIN 1 MG ORAL TABLET 2 tabs orally daily with the 5mg tab to equal 7mg daily WARFARIN SODIUM 72245722552 Active Mitch Urbina DO Active INVOKANA 100 MG ORAL TABLET 1 tablet orally daily CANAGLIFLOZIN 25769295020 Active Curly Coker MD Active MINOXIDIL 2.5 MG ORAL TABLET 1 tablet daily for high blood press ure MINOXIDIL 15507304089 Active Renee Oconnor LPN Active MECLIZINE HCL 25 MG ORAL TABLET 1 po tid 3 days, then 1/2 ta b tid 3 days MECLIZINE HCL 35786600219 No Longer Active Corey SEGURA Active ALLOPURINOL 300 MG ORAL TABLET Take 1 tablet by mouth daily 2012 ALLOPURINOL 45232109797 No Longer Active Corey SEGURA Active CLONIDINE HCL 0.1 MG ORAL TABLET 1 po bid 7 days, then 1/2 t ab po bid 7 days CLONIDINE HCL 91453588074 No Longer Active Corey SEGURA Active COUMADIN 5 MG ORAL TABLET 1 tab PO daily WARFAR IN SODIUM 24848552529 Active Curly Coker MD Active COUMADIN 4 MG ORAL TABLET 1 tablet daily WARFAR IN SODIUM 28004925721 No Longer Active Corey SEGURA Active POLYTRIM 93384-0.1 UNIT/ML-% OPHTHALMIC SOLUTION 1 rui p in affected eye every 3 hours while awake x 7 days POLYMYXIN B-TRIMETHOP RIM 11037883028 No Longer Active Corey SEGURA Active LOSARTAN POTASSIUM-HCTZ 100-12.5 MG ORAL TABLET 1 by m outh daily for high blood pressure LOSARTAN POTASSIUM-HCTZ 50995174523 No Longer A ctive Mitch Urbina DO Active LISINOPRIL-HYDROCHLOROTHIAZIDE 20-12.5 MG ORAL TABLET 1 tab by m outh daily LISINOPRIL-HYDROCHLOROTHIAZIDE 78127806270 No Longer Active Mitch Urbina DO Active LISINOPRIL 20 MG ORAL TABLET 1 tab po at HS LIS INOPRIL 27884121591 No Longer Active Mitch Urbina DO Active COUMADIN 5 MG ORAL TABLET 1 by mouth every other day 2 WARFARIN SODIUM 78624752001 No Longer Active Mitch Urbina DO Active COUMADIN 6 MG ORAL TABLET 1 by mouth every other day 2 WARFARIN SODIUM 23757412661 No Longer Active Mitch Urbina DO Active SIMVASTATIN 40 MG ORAL TABLET 1 tab daily at bedtime SIMVASTATIN 25143431127 Active Renee Oconnor LPN Active SIMVASTATIN 20 MG ORAL TABLET 1 tab daily at bedtime 2 SIMVASTATIN 00798282503 No Longer Active Mitch Urbina DO Active LOVENOX 100 MG/ML SUBCUTANEOUS SOLUTION One injection twice a da y ENOXAPARIN SODIUM 33088339398 No Longer Active Carmine Yusuf MD Active JANUVIA 50 MG ORAL TABLET Take one by mouth daily SITAGLIPTIN PHOSPHATE 03903412107 Active Mitch Urbina DO Active JANUVIA 100 MG ORAL TABLET 1/2 by mouth every day 2011 SITAGLIPTIN PHOSPHATE 44960639902 No Longer Active Bijal Segal RN Acti ve METFORMIN HCL 500 MG ORAL TABLET 2 by mouth twice daily METFORMIN HCL 88611826880 Active Mitch Urbina DO Active COLCRYS 0.6 MG ORAL TABLET 1 po q 6 hours prn gout pain COLCHICINE 76507317203 No Longer Active Camila Reese Active LISINOPRIL 5 MG ORAL TABLET 1 by mouth every day 11/17 LISINOPRIL 53694412783 No Longer Active Nguyen Perez Active KLOR-CON 20 MEQ ORAL PACKET Take one by mouth daily 09/10/08 POTASSIUM CHLORIDE 26606051628 No Longer Active Nguyen Perez Active FUROSEMIDE 40 MG ORAL TABLET 1 by mouth daily F UROSEMIDE 27316998214 No Longer Active Nguyen Perez Active PROVIGIL 200 MG ORAL TABLET 1/2 tab po q day MODA FINIL 84900499519 Active Renee Oconnor LPN Active PROVIGIL 100 MG ORAL TABLET Take one by mouth daily 08/20/04 MODAFINIL 01155447880 No Longer Active Mitch Urbina DO Active BACTRIM DS 800-160 MG ORAL TABLET 1 tab by mouth twice daily 201 10/19/09 TRIMETHOPRIM-SULFAMETHOXAZOLE 29077567098 No Longer Active Elian Hays MD Active ADULT ASPIRIN LOW STRENGTH 81 MG ORAL TABLET DISINTEGR ATING 1 by mouth every daily ASPIRIN 30837532225 Active Mitch Urbina DO Ac tive METOPROLOL TARTRATE 50 MG ORAL TABLET 1 by mouth twice daily METOPROLOL TARTRATE 43017681566 Active Mitch Urbina DO Active BACTRIM DS 800-160 MG ORAL TABLET 1 tab by mouth twice daily 201 10/19/09 BACTRIM DS 800-160 MG ORAL TABLET 541634 TRIMETHOPRIM-SULFAMETHOXAZOLE Inactive PROVIGIL 100 MG ORAL TABLET Take one by mouth daily 08/20/04 PROVIGIL 100 MG ORAL TABLET 761201 MODAFINIL Inactive FUROSEMIDE 40 MG ORAL TABLET 1 by mouth daily FUROSEMIDE 40 MG ORAL TABLET 549018 FUROSEMIDE Inactive KLOR-CON 20 MEQ ORAL PACKET Take one by mouth daily 09/10/08 KLOR- CON 20 MEQ ORAL PACKET 9751218 POTASSIUM CHLORIDE Inactive LISINOPRIL 5 MG ORAL TABLET 1 by mouth every day 11/17 LISINOPRIL 5 MG ORAL TABLET 155914 LISINOPRIL Inactive COLCRYS 0.6 MG ORAL TABLET 1 po q 6 hours prn gout pain COLCRYS 0.6 MG ORAL TABLET 504926 COLCHICINE Inactive JANUVIA 100 MG ORAL TABLET 1/2 by mouth every day 2011 JANUVIA 100 MG ORAL TABLET SITAGLIPTIN PHOSPHATE Inactive SIMVASTATIN 20 MG ORAL TABLET 1 tab daily at bedtime 2 SIMVASTATIN 20 MG ORAL TABLET 786784 SIMVASTATIN Inactive COUMADIN 6 MG ORAL TABLET 1 by mouth every other day COUMADIN 6 MG ORAL TABLET 539534 WARFARIN SODIUM Inactive COUMADIN 5 MG ORAL TABLET 1 by mouth every other day COUMADIN 5 MG ORAL TABLET 661523 WARFARIN SODIUM Inactive LISINOPRIL 20 MG ORAL TABLET 1 tab po at HS LISINOPRIL 20 MG ORAL TABLET 712963 LISINOPRIL Inactive LISINOPRIL-HYDROCHLOROTHIAZIDE 20-12.5 MG ORAL TABLET 1 tab by m outh daily LISINOPRIL-HYDROCHLOROTHIAZIDE 20-12.5 MG ORAL TABLET 905389 LISINOPRIL-HYDROCHLOROTHIAZIDE Inactive POLYTRIM 94293-2.1 UNIT/ML-% OPHTHALMIC SOLUTION 1 rui p in affected eye every 3 hours while awake x 7 days POLYTRIM 1000 0-0.1 UNIT/ML-% OPHTHALMIC SOLUTION 015878 POLYMYXIN B-TRIMETHOPRIM Inactive COUMADIN 4 MG ORAL TABLET 1 tablet daily COUMADIN 4 MG ORAL TABLET 913062 WARFARIN SODIUM Inactive CLONIDINE HCL 0.1 MG ORAL TABLET 1 po bid 7 days, then 1/2 t ab po bid 7 days CLONIDINE HCL 0.1 MG ORAL TABLET 839964 CLONIDIN E HCL Inactive ALLOPURINOL 300 MG ORAL TABLET Take 1 tablet by mouth daily 2012 ALLOPURINOL 300 MG ORAL TABLET 589673 ALLOPURINOL I nactive MECLIZINE HCL 25 MG ORAL TABLET 1 po tid 3 days, then 1/2 ta b tid 3 days MECLIZINE HCL 25 MG ORAL TABLET 271859 MECLIZINE HCL Inactive AMLODIPINE BESYLATE 5 MG ORAL TABLET 1 tablet by mouth daily 201 01/20/04 AMLODIPINE BESYLATE 5 MG ORAL TABLET 411921 AMLODIPINE BESYLATE Inactive KEFLEX 500 MG ORAL CAPSULE 1 po qid K EFLEX 500 MG ORAL CAPSULE 049221 CEPHALEXIN Inactive COLCRYS 0.6 MG ORAL TABLET 1 tab qid prn gout COLCRYS 0.6 MG ORAL TABLET 114675 COLCHICINE Inactive FAMOTIDINE 20 MG ORAL TABLET by mouth twice a day 2017 FAMOTIDINE 20 MG ORAL TABLET 368329 FAMOTIDINE Inactive LOVENOX 100 MG/ML SUBCUTANEOUS SOLUTION One injection twice a da y LOVENOX 100 MG/ML SUBCUTANEOUS SOLUTION 766573 ENOXAPAR IN SODIUM Inactive Vital Signs Date [...] - Chem istry sodium, serum 141 mmol/L 494-967 5970/08/07 potassium, serum 4.5 mmol/L 3.5-5.2 chloride, serum [...] HGBA1C - Chemistry cholesterol, serum 136 mg/dL 964-523 0544/12/06 triglyceride, serum, fasting 247 mg/dL 30-200 HDL cholesterol, serum 41 mg/dL 32-60 LDL cholesterol, serum 46 mg/dL 0-130 aspartate aminotransferase (SGOT), serum 22 U/L 15-37 alanine aminotransferase (SGPT), serum 30 U/L 12-78 bilirubin, serum, total 0.80 mg/dL 0.00-1.00 hemoglobin A1C, blood, as % of total hemoglobin 6.4 % 4.3-6.0 Encounters Code Encounter Date Provider Facility CPT-27086 Level 3 Est. Patient 18:25:53 CDT Mitch luis [facility] CPT-87496 Level 3 Est. Patient 19:43:34 CDT Mitch luis [facility] CPT-55021 Level 4 Est. Patient 09:30:18 CDT Mitch luis [facility] CPT-89843 Level 3 Est. Patient 15:10:14 CDT Joe kamara [facility] CPT-21938 Level 3 Est. Patient 15:03:46 CDT Joe kamara [facility] CPT-29952 Level 3 Est. Patient 14:21:06 CDT Mitch luis [facility] CPT-56482 Level 3 Est. Patient 14:52:06 CDT Joe kamara [facility] CPT-89060 Level 3 Est. Patient 09:34:30 ALLOPATHIC DOCTOR Mitch luis [facility] CPT-90869 Level 3 Est. Patient 09:37:15 CDT Mitch luis [facility] CPT-56463 Level 3 Est. Patient 17:01:00 ALLOPATHIC DOCTOR Mitch luis [facility] CPT-71145 Level 3 Est. Patient 13:53:19 ALLOPATHIC DOCTOR Mitch luis [facility] CPT-59834 Level 3 Est. Patient 19:19:37 ALLOPATHIC DOCTOR Mitch luis [facility] CPT-03451 Level 3 Est. Patient 13:25:53 ALLOPATHIC DOCTOR Tavo toure MD [facility]-31378 Level 3 Est. Patient 18:17:28 CDT Mitch luis [facility] CPT-27063 Level 3 Est. Patient 15:22:57 CDT Mitch luis [facility] CPT-81959 Level 3 Est. Patient 18:21:50 CDT Mitch luis [facility] CPT-86464 Level 3 Est. Patient 18:20:38 CDT Mitch luis [facility] CPT-10228 Level 3 Est. Patient 15:37:55 CDT Mitch luis [facility] CPT-04670 Level 2 Est. Patient 15:54:44 CDT Carmine benton MD [facility]-01583 Level 3 Est. Patient 21:46:01 ALLOPATHIC DOCTOR Mitch luis [facility] CPT-89683 Level 3 Est. Patient 22:15:50 CDT Mitch luis [facility] CPT-14500 Level 3 Est. Patient 10:48:15 CDT Mitch luis [facility] CPT-68487 Level 3 Est. Patient 23:20:57 CDT Tavo toure MD [facility]-26178 Level 3 Est. Patient 16:26:13 CDT Mitch luis [facility] Procedures Code Procedure Name Date Entry Date Standard Desc ription CPT-JTINJ Asp/Joint Injection 18:47:02 CDT CPT-49264 Venipuncture Draw Fee 09:26:17 CDT CPT-71315 PT/INR - LAB USE ONLY 13:32:49 ALLOPATHIC DOCTOR CPT-54358 Venipuncture Draw Fee 13:32:49 ALLOPATHIC DOCTOR CPT-79938 PT/INR - LAB USE ONLY 10:34:49 ALLOPATHIC DOCTOR CPT-22020 Venipuncture Draw Fee 10:34:48 ALLOPATHIC DOCTOR CPT-95804 PT/INR - LAB USE ONLY 09:22:03 ALLOPATHIC DOCTOR CPT-77085 Venipuncture Draw Fee 09:22:02 ALLOPATHIC DOCTOR CPT-06748 Hemoccult IFOBT - LAB USE ONLY 10:27:22 CDT CPT-88879 Venipuncture Draw Fee 08:27:08 CDT CPT-82068 Liver Profile - LAB USE ONLY 08:27:07 CDT 2 CPT-14806 Microalbumin - LAB USE ONLY 08:27:07 CDT 20 25/05/09 CPT-43297 PT/INR - LAB USE ONLY 08:27:07 CDT CPT-95563 HGBA1C - LAB USE ONLY 08:27:07 CDT CPT-25259 CBC - LAB USE ONLY 08:27:07 CDT CPT-26391 Venipuncture Draw Fee 11:09:14 CDT CPT-02405 Venipuncture Draw Fee 08:32:21 ALLOPATHIC DOCTOR CPT-61414 Venipuncture Draw Fee 09:38:56 ALLOPATHIC DOCTOR CPT-13633 No Charge Offi Visit 21:36:07 CDT 1 CPT-81647 Venipuncture Draw Fee 10:13:28 ALLOPATHIC DOCTOR CPT-32165 Venipuncture Draw Fee 08:31:11 CDT CPT-45144 Aspir/Inject Med Joint 18:17:28 CDT CPT-73409 Venipuncture Draw Fee 10:13:30 CDT CPT-63734 Venipuncture Draw Fee 08:31:43 ALLOPATHIC DOCTOR CPT-JTINJ Joint Injection 18:34:50 CDT CPT-60812 Knee 3V 12:25:09 CDT CPT-41847 Venipuncture Draw Fee 12:15:57 CDT CPT-060 Medical Surveillance Exam 21:31:43 CDT 2011 CPT-70064 Venipuncture Draw Fee 08:32:05 ALLOPATHIC DOCTOR CPT-OV Office Visit 18:19:06 CDT
--- OUTSIDE RECORDS SUMMARY | 2020-01-18 13:32 | XMS REPORT | Clinical Summary ---
[...] by mouth twice a day 2017 FAMOTIDINE 60390009288 No Longer Active Mitch Urbina DO Active COLCRYS 0.6 MG ORAL TABLET 1 tab qid prn gout C OLCHICINE 33994250383 No Longer Active Mitch Urbina DO Active GLIMEPIRIDE 2 MG ORAL TABLET 1 po BID GLIMEPIRID E 35624450892 Active Renee Oconnor LPN Active KEFLEX 500 MG ORAL CAPSULE 1 po qid CEPHALEXI N 57020944208 No Longer Active Mitch Urbina DO Active LOSARTAN POTASSIUM 100 MG ORAL TABLET 1 pill by mouth daily, for blood pressure LOSARTAN POTASSIUM 29796677205 Active Mitch Urbina DO Active AMLODIPINE BESYLATE 5 MG ORAL TABLET 1 tablet by mouth daily 201 01/20/04 AMLODIPINE BESYLATE 86876802593 No Longer Active Joe fulton APRN Active MITIGARE 0.6 MG ORAL CAPSULE 2 capsules at onset of go ut pain, then take one capsule at 1 hour if symptoms persist. COLCHICINE 59 755451431 Active Mitch Urbina DO Active COUMADIN 1 MG ORAL TABLET 2 tabs orally daily with the 5mg tab to equal 7mg daily WARFARIN SODIUM 89162564861 Active Mitch Urbina DO Active INVOKANA 100 MG ORAL TABLET 1 tablet orally daily CANAGLIFLOZIN 68520771939 Active Mitch Urbina DO Active MINOXIDIL 2.5 MG ORAL TABLET 1 tablet daily for high blood press ure MINOXIDIL 36731560729 Active Renee Oconnor LPN Active MECLIZINE HCL 25 MG ORAL TABLET 1 po tid 3 days, then 1/2 ta b tid 3 days MECLIZINE HCL 85199025908 No Longer Active Corey SEGURA Active ALLOPURINOL 300 MG ORAL TABLET Take 1 tablet by mouth daily 2012 ALLOPURINOL 80828782942 No Longer Active Corey SEGURA Active CLONIDINE HCL 0.1 MG ORAL TABLET 1 po bid 7 days, then 1/2 t ab po bid 7 days CLONIDINE HCL 91652606807 No Longer Active Corey SEGURA Active COUMADIN 5 MG ORAL TABLET 1 tab PO daily WARFAR IN SODIUM 61987914773 Active Mitch Urbina DO Active COUMADIN 4 MG ORAL TABLET 1 tablet daily WARFAR IN SODIUM 26791580952 No Longer Active Corey SEGURA Active POLYTRIM 15954-4.1 UNIT/ML-% OPHTHALMIC SOLUTION 1 rui p in affected eye every 3 hours while awake x 7 days POLYMYXIN B-TRIMETHOP RIM 46125121594 No Longer Active Corey SEGURA Active LOSARTAN POTASSIUM-HCTZ 100-12.5 MG ORAL TABLET 1 by m outh daily for high blood pressure LOSARTAN POTASSIUM-HCTZ 64193862242 No Longer A ctive Mitch Urbina DO Active LISINOPRIL-HYDROCHLOROTHIAZIDE 20-12.5 MG ORAL TABLET 1 tab by m outh daily LISINOPRIL-HYDROCHLOROTHIAZIDE 42204061590 No Longer Active Mitch Urbina DO Active LISINOPRIL 20 MG ORAL TABLET 1 tab po at HS LIS INOPRIL 30928420361 No Longer Active Mitch Urbina DO Active COUMADIN 5 MG ORAL TABLET 1 by mouth every other day 2 WARFARIN SODIUM 55700061354 No Longer Active Mitch Urbina DO Active COUMADIN 6 MG ORAL TABLET 1 by mouth every other day 2 WARFARIN SODIUM 21353233186 No Longer Active Mitch Urbina DO Active SIMVASTATIN 40 MG ORAL TABLET 1 tab daily at bedtime SIMVASTATIN 31052086646 Active Renee Oconnor LPN Active SIMVASTATIN 20 MG ORAL TABLET 1 tab daily at bedtime 2 SIMVASTATIN 11353217109 No Longer Active Mitch Urbina DO Active LOVENOX 100 MG/ML SUBCUTANEOUS SOLUTION One injection twice a da y ENOXAPARIN SODIUM 20247093749 No Longer Active Carmine Yusuf MD Active JANUVIA 50 MG ORAL TABLET Take one by mouth daily SITAGLIPTIN PHOSPHATE 56410986047 Active Mitch Urbian DO Active JANUVIA 100 MG ORAL TABLET 1/2 by mouth every day 2011 SITAGLIPTIN PHOSPHATE 73908858870 No Longer Active Bijal Segal RN Acti ve METFORMIN HCL 500 MG ORAL TABLET 2 by mouth twice daily METFORMIN HCL 75155134135 Active Mitch Urbina DO Active COLCRYS 0.6 MG ORAL TABLET 1 po q 6 hours prn gout pain COLCHICINE 78216623245 No Longer Active Camila Reese Active LISINOPRIL 5 MG ORAL TABLET 1 by mouth every day 11/17 LISINOPRIL 56166819785 No Longer Active Nguyen Perez Active KLOR-CON 20 MEQ ORAL PACKET Take one by mouth daily 09/10/08 POTASSIUM CHLORIDE 61017274395 No Longer Active Nguyen Perez Active FUROSEMIDE 40 MG ORAL TABLET 1 by mouth daily F UROSEMIDE 78057645744 No Longer Active Nguyen Perez Active PROVIGIL 200 MG ORAL TABLET 1/2 tab po q day MODA FINIL 56127702106 Active Renee Oconnor LPN Active PROVIGIL 100 MG ORAL TABLET Take one by mouth daily 08/20/04 MODAFINIL 79014446644 No Longer Active Mitch Urbina DO Active BACTRIM DS 800-160 MG ORAL TABLET 1 tab by mouth twice daily 201 10/19/09 TRIMETHOPRIM-SULFAMETHOXAZOLE 71919618000 No Longer Active Elian Hays MD Active ADULT ASPIRIN LOW STRENGTH 81 MG ORAL TABLET DISINTEGR ATING 1 by mouth every daily ASPIRIN 27709508403 Active Mitch Urbina DO Ac tive METOPROLOL TARTRATE 50 MG ORAL TABLET 1 by mouth twice daily METOPROLOL TARTRATE 43100860618 Active Mitch Urbina DO Active BACTRIM DS 800-160 MG ORAL TABLET 1 tab by mouth twice daily 201 10/19/09 BACTRIM DS 800-160 MG ORAL TABLET 266756 TRIMETHOPRIM-SULFAMETHOXAZOLE Inactive PROVIGIL 100 MG ORAL TABLET Take one by mouth daily 08/20/04 PROVIGIL 100 MG ORAL TABLET 214894 MODAFINIL Inactive FUROSEMIDE 40 MG ORAL TABLET 1 by mouth daily FUROSEMIDE 40 MG ORAL TABLET 844680 FUROSEMIDE Inactive KLOR-CON 20 MEQ ORAL PACKET Take one by mouth daily 09/10/08 KLOR- CON 20 MEQ ORAL PACKET 5338785 POTASSIUM CHLORIDE Inactive LISINOPRIL 5 MG ORAL TABLET 1 by mouth every day 11/17 LISINOPRIL 5 MG ORAL TABLET 482078 LISINOPRIL Inactive COLCRYS 0.6 MG ORAL TABLET 1 po q 6 hours prn gout pain COLCRYS 0.6 MG ORAL TABLET 077253 COLCHICINE Inactive JANUVIA 100 MG ORAL TABLET 1/2 by mouth every day 2011 JANUVIA 100 MG ORAL TABLET SITAGLIPTIN PHOSPHATE Inactive SIMVASTATIN 20 MG ORAL TABLET 1 tab daily at bedtime 2 SIMVASTATIN 20 MG ORAL TABLET 548356 SIMVASTATIN Inactive COUMADIN 6 MG ORAL TABLET 1 by mouth every other day COUMADIN 6 MG ORAL TABLET 378547 WARFARIN SODIUM Inactive COUMADIN 5 MG ORAL TABLET 1 by mouth every other day COUMADIN 5 MG ORAL TABLET 938630 WARFARIN SODIUM Inactive LISINOPRIL 20 MG ORAL TABLET 1 tab po at HS LISINOPRIL 20 MG ORAL TABLET 122338 LISINOPRIL Inactive LISINOPRIL-HYDROCHLOROTHIAZIDE 20-12.5 MG ORAL TABLET 1 tab by m outh daily LISINOPRIL-HYDROCHLOROTHIAZIDE 20-12.5 MG ORAL TABLET 237631 LISINOPRIL-HYDROCHLOROTHIAZIDE Inactive POLYTRIM 22560-1.1 UNIT/ML-% OPHTHALMIC SOLUTION 1 rui p in affected eye every 3 hours while awake x 7 days POLYTRIM 1000 0-0.1 UNIT/ML-% OPHTHALMIC SOLUTION 328326 POLYMYXIN B-TRIMETHOPRIM Inactive COUMADIN 4 MG ORAL TABLET 1 tablet daily COUMADIN 4 MG ORAL TABLET 452747 WARFARIN SODIUM Inactive CLONIDINE HCL 0.1 MG ORAL TABLET 1 po bid 7 days, then 1/2 t ab po bid 7 days CLONIDINE HCL 0.1 MG ORAL TABLET 674148 CLONIDIN E HCL Inactive ALLOPURINOL 300 MG ORAL TABLET Take 1 tablet by mouth daily 2012 ALLOPURINOL 300 MG ORAL TABLET 756247 ALLOPURINOL I nactive MECLIZINE HCL 25 MG ORAL TABLET 1 po tid 3 days, then 1/2 ta b tid 3 days MECLIZINE HCL 25 MG ORAL TABLET 132204 MECLIZINE HCL Inactive AMLODIPINE BESYLATE 5 MG ORAL TABLET 1 tablet by mouth daily 201 01/20/04 AMLODIPINE BESYLATE 5 MG ORAL TABLET 142405 AMLODIPINE BESYLATE Inactive KEFLEX 500 MG ORAL CAPSULE 1 po qid K EFLEX 500 MG ORAL CAPSULE 980973 CEPHALEXIN Inactive COLCRYS 0.6 MG ORAL TABLET 1 tab qid prn gout COLCRYS 0.6 MG ORAL TABLET 078054 COLCHICINE Inactive FAMOTIDINE 20 MG ORAL TABLET by mouth twice a day 2017 FAMOTIDINE 20 MG ORAL TABLET 110230 FAMOTIDINE Inactive LOVENOX 100 MG/ML SUBCUTANEOUS SOLUTION One injection twice a da y LOVENOX 100 MG/ML SUBCUTANEOUS SOLUTION 778658 ENOXAPAR IN SODIUM Inactive Vital Signs Date [...] - Chem istry sodium, serum 141 mmol/L 406-378 5962/08/07 potassium, serum 4.5 mmol/L 3.5-5.2 chloride, serum [...] HGBA1C - Chemistry cholesterol, serum 136 mg/dL 141-710 1417/12/06 triglyceride, serum, fasting 247 mg/dL 30-200 HDL cholesterol, serum 41 mg/dL 32-60 LDL cholesterol, serum 46 mg/dL 0-130 aspartate aminotransferase (SGOT), serum 22 U/L 15-37 alanine aminotransferase (SGPT), serum 30 U/L 12-78 bilirubin, serum, total 0.80 mg/dL 0.00-1.00 hemoglobin A1C, blood, as % of total hemoglobin 6.4 % 4.3-6.0 Encounters Code Encounter Date Provider Facility CPT-51673 Level 3 Est. Patient 18:25:53 CDT Mitch luis [facility] CPT-86479 Level 3 Est. Patient 19:43:34 CDT Mitch luis [facility] CPT-00080 Level 4 Est. Patient 09:30:18 CDT Mitch luis [facility] CPT-85484 Level 3 Est. Patient 15:10:14 CDT Joe kamara [facility] CPT-38448 Level 3 Est. Patient 15:03:46 CDT Joe kamara [facility] CPT-93035 Level 3 Est. Patient 14:21:06 CDT Mitch lusi [facility] CPT-52399 Level 3 Est. Patient 14:52:06 CDT Joe kamara [facility] CPT-36983 Level 3 Est. 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 Patient 09:37:15 CDT Mitch luis [facility] CPT-19517 Level 3 Est. Patient 17:01:00 HOUSE FURNISHINGS SUPERVISOR Mitch W L ee [facility] CPT-99089 Level 3 Est. Patient 13:53:19 HOUSE FURNISHINGS SUPERVISOR Mitch luis [facility] CPT-86902 Level 3 Est. Patient 19:19:37 HOUSE FURNISHINGS SUPERVISOR Mitch luis [facility] CPT-35172 Level 3 Est. Patient 13:25:53 HOUSE FURNISHINGS SUPERVISOR Tavo toure MD [facility]-20723 Level 3 Est. Patient 18:17:28 CDT Mitch luis [facility] CPT-48706 Level 3 Est. Patient 15:22:57 CDT Mitch luis [facility]-47398 Level 3 Est. Patient 18:21:50 CDT Mitch luis [facility] CPT-19101 Level 3 Est. Patient 18:20:38 CDT Mitch luis [facility] CPT-70899 Level 3 Est. Patient 15:37:55 CDT Mitch luis [facility] CPT-31011 Level 2 Est. Patient 15:54:44 CDT Carmine benton MD [facility]-74111 Level 3 Est. Patient 21:46:01 HOUSE FURNISHINGS SUPERVISOR Mitch luis [facility] CPT-24067 Level 3 Est. Patient 22:15:50 CDT Mitch luis [facility] CPT-43880 Level 3 Est. Patient 10:48:15 CDT Mitch luis [facility] CPT-52874 Level 3 Est. Patient 23:20:57 CDT Tavo toure MD [facility]-31718 Level 3 Est. Patient 16:26:13 CDT Mitch Castellano [facility] Procedures Code Procedure Name Date Entry Date Standard Desc ription CPT-JTINJ Asp/Joint Injection 18:47:02 CDT CPT-96024 Venipuncture Draw Fee 09:26:17 CDT CPT-10579 PT/INR - LAB USE ONLY 13:32:49 HOUSE FURNISHINGS SUPERVISOR CPT-82174 Venipuncture Draw Fee 13:32:49 HOUSE FURNISHINGS SUPERVISOR CPT-83844 PT/INR - LAB USE ONLY 10:34:49 HOUSE FURNISHINGS SUPERVISOR CPT-89599 Venipuncture Draw Fee 10:34:48 HOUSE FURNISHINGS SUPERVISOR CPT-66503 PT/INR - LAB USE ONLY 09:22:03 HOUSE FURNISHINGS SUPERVISOR CPT-03230 Venipuncture Draw Fee 09:22:02 HOUSE FURNISHINGS SUPERVISOR CPT-35792 Hemoccult IFOBT - LAB USE ONLY 10:27:22 CDT CPT-99722 Venipuncture Draw Fee 08:27:08 CDT CPT-68118 Liver Profile - LAB USE ONLY 08:27:07 CDT 2 CPT-43849 Microalbumin - LAB USE ONLY 08:27:07 CDT 20 25/05/09 CPT-96434 PT/INR - LAB USE ONLY 08:27:07 CDT CPT-81071 HGBA1C - LAB USE ONLY 08:27:07 CDT CPT-87241 CBC - LAB USE ONLY 08:27:07 CDT CPT-99880 Venipuncture Draw Fee 11:09:14 CDT CPT-21494 Venipuncture Draw Fee 08:32:21 HOUSE FURNISHINGS SUPERVISOR CPT-94598 Venipuncture Draw Fee 09:38:56 HOUSE FURNISHINGS SUPERVISOR CPT-50112 No Charge Offi Visit 21:36:07 CDT 1 CPT-83079 Venipuncture Draw Fee 10:13:28 HOUSE FURNISHINGS SUPERVISOR CPT-21558 Venipuncture Draw Fee 08:31:11 CDT CPT-76744 Aspir/Inject Med Joint 18:17:28 CDT CPT-85080 Venipuncture Draw Fee 10:13:30 CDT CPT-05249 Venipuncture Draw Fee 08:31:43 HOUSE FURNISHINGS SUPERVISOR CPT-JTINJ Joint Injection 18:34:50 CDT CPT-82123 Knee 3V 12:25:09 CDT CPT-51040 Venipuncture Draw Fee 12:15:57 CDT CPT-060 Medical Surveillance Exam 21:31:43 CDT 2011 CPT-95751 Venipuncture Draw Fee 08:32:05 HOUSE FURNISHINGS SUPERVISOR CPT-OV Office Visit 18:19:06 CDT
--- OUTSIDE RECORDS SUMMARY | 2020-01-18 13:33 | XMS REPORT | Clinical Summary ---
[...] of vessel, [place] or graft EDEMA 782.3 Resolved Mitch Urbina [...] Generic Name NDC Status Provider Patient Instruction PROVIGIL 200 MG ORAL TABLET 1/2 tab po q day ERICKA BARBA 63741181652 Active Renee Oconnor LPN Active FAMOTIDINE 20 MG ORAL TABLET by mouth twice a day 2017 FAMOTIDINE 08390832487 No Longer Active Mitch Urbina DO Active COLCRYS 0.6 MG ORAL TABLET 1 tab qid prn gout C OLCHICINE 19922958543 No Longer Active Mitch Urbnia DO Active GLIMEPIRIDE 2 MG ORAL TABLET 1 po BID GLIMEPIRID E 55683328378 Active Renee Oconnor LPN Active KEFLEX 500 MG ORAL CAPSULE 1 po qid CEPHALEXI N 12499066288 No Longer Active Mitch Urbina DO Active LOSARTAN POTASSIUM 100 MG ORAL TABLET 1 pill by mouth daily, for blood pressure LOSARTAN POTASSIUM 14607218041 Active Mitch Urbina DO Active AMLODIPINE BESYLATE 5 MG ORAL TABLET 1 tablet by mouth daily 201 01/20/04 AMLODIPINE BESYLATE 54557266809 No Longer Active Joe fulton APRN Active MITIGARE 0.6 MG ORAL CAPSULE 2 capsules at onset of go ut pain, then take one capsule at 1 hour if symptoms persist. COLCHICINE 59 643038741 Active Mitch Urbina DO Active COUMADIN 1 MG ORAL TABLET 2 tabs orally daily with the 5mg tab to equal 7mg daily WARFARIN SODIUM 31343141699 Active Mitch Urbina DO Active INVOKANA 100 MG ORAL TABLET 1 tablet orally daily CANAGLIFLOZIN 64503074641 Active Curly Coker MD Active MINOXIDIL 2.5 MG ORAL TABLET 1 tablet daily for high blood press ure MINOXIDIL 50471936411 Active Renee Oconnor LPN Active MECLIZINE HCL 25 MG ORAL TABLET 1 po tid 3 days, then 1/2 ta b tid 3 days MECLIZINE HCL 98393124924 No Longer Active Corey SEGURA Active ALLOPURINOL 300 MG ORAL TABLET Take 1 tablet by mouth daily 2012 ALLOPURINOL 73960868265 No Longer Active Corey SEGURA Active CLONIDINE HCL 0.1 MG ORAL TABLET 1 po bid 7 days, then 1/2 t ab po bid 7 days CLONIDINE HCL 21421660018 No Longer Active Corey SEGURA Active COUMADIN 5 MG ORAL TABLET 1 tab PO daily WARFAR IN SODIUM 68274254045 Active Curly Coker MD Active COUMADIN 4 MG ORAL TABLET 1 tablet daily WARFAR IN SODIUM 08993690124 No Longer Active Corey SEGURA Active POLYTRIM 45240-7.1 UNIT/ML-% OPHTHALMIC SOLUTION 1 rui p in affected eye every 3 hours while awake x 7 days POLYMYXIN B-TRIMETHOP RIM 55093202247 No Longer Active Corey SEGURA Active LOSARTAN POTASSIUM-HCTZ 100-12.5 MG ORAL TABLET 1 by m outh daily for high blood pressure LOSARTAN POTASSIUM-HCTZ 44377351112 No Longer A ctive Mitch Urbina DO Active LISINOPRIL-HYDROCHLOROTHIAZIDE 20-12.5 MG ORAL TABLET 1 tab by m outh daily LISINOPRIL-HYDROCHLOROTHIAZIDE 58896278419 No Longer Active Mitch Urbina DO Active LISINOPRIL 20 MG ORAL TABLET 1 tab po at HS LIS INOPRIL 43396044358 No Longer Active Mitch Urbina DO Active COUMADIN 5 MG ORAL TABLET 1 by mouth every other day 2 WARFARIN SODIUM 24646042662 No Longer Active Mitch Urbina DO Active COUMADIN 6 MG ORAL TABLET 1 by mouth every other day 2 WARFARIN SODIUM 34089135333 No Longer Active Mitch Urbina DO Active SIMVASTATIN 40 MG ORAL TABLET 1 tab daily at bedtime SIMVASTATIN 02155259763 Active Renee Oconnor LPN Active SIMVASTATIN 20 MG ORAL TABLET 1 tab daily at bedtime 2 SIMVASTATIN 24468193442 No Longer Active Mitch Urbina DO Active LOVENOX 100 MG/ML SUBCUTANEOUS SOLUTION One injection twice a da y ENOXAPARIN SODIUM 02804221117 No Longer Active Carmine Yusuf MD Active JANUVIA 50 MG ORAL TABLET Take one by mouth daily SITAGLIPTIN PHOSPHATE 25954394103 Active Mitch Urbina DO Active JANUVIA 100 MG ORAL TABLET 1/2 by mouth every day 2011 SITAGLIPTIN PHOSPHATE 70173428657 No Longer Active Bijal Segal RN Acti ve METFORMIN HCL 500 MG ORAL TABLET 2 by mouth twice daily METFORMIN HCL 89586457708 Active Mitch Urbina DO Active COLCRYS 0.6 MG ORAL TABLET 1 po q 6 hours prn gout pain COLCHICINE 88299146384 No Longer Active Camila Reese Active LISINOPRIL 5 MG ORAL TABLET 1 by mouth every day 11/17 LISINOPRIL 84200960512 No Longer Active Nguyen Perez Active KLOR-CON 20 MEQ ORAL PACKET Take one by mouth daily 09/10/08 POTASSIUM CHLORIDE 32942771035 No Longer Active Nguyen Perez Active FUROSEMIDE 40 MG ORAL TABLET 1 by mouth daily F UROSEMIDE 13259316696 No Longer Active Nguyen Perez Active PROVIGIL 100 MG ORAL TABLET Take one by mouth daily 08/20/04 MODAFINIL 74296978255 No Longer Active Mitch Urbina DO Active BACTRIM DS 800-160 MG ORAL TABLET 1 tab by mouth twice daily 201 10/19/09 TRIMETHOPRIM-SULFAMETHOXAZOLE 52161149299 No Longer Active Elian Hays MD Active ADULT ASPIRIN LOW STRENGTH 81 MG ORAL TABLET DISINTEGR ATING 1 by mouth every daily ASPIRIN 60519011661 Active Mitch Urbina DO Ac tive METOPROLOL TARTRATE 50 MG ORAL TABLET 1 by mouth twice daily METOPROLOL TARTRATE 14631290856 Active Mitch Urbina DO Active BACTRIM DS 800-160 MG ORAL TABLET 1 tab by mouth twice daily 201 10/19/09 BACTRIM DS 800-160 MG ORAL TABLET 454433 TRIMETHOPRIM-SULFAMETHOXAZOLE Inactive PROVIGIL 100 MG ORAL TABLET Take one by mouth daily 20 08/20/04 PROVIGIL 100 MG ORAL TABLET 137833 MODAFINIL Inactive FUROSEMIDE 40 MG ORAL TABLET 1 by mouth daily FUROSEMIDE 40 MG ORAL TABLET 679439 FUROSEMIDE Inactive KLOR-CON 20 MEQ ORAL PACKET Take one by mouth daily 09/10/08 KLOR- CON 20 MEQ ORAL PACKET 5233954 POTASSIUM CHLORIDE Inactive LISINOPRIL 5 MG ORAL TABLET 1 by mouth every day 11/17 LISINOPRIL 5 MG ORAL TABLET 736958 LISINOPRIL Inactive COLCRYS 0.6 MG ORAL TABLET 1 po q 6 hours prn gout pain COLCRYS 0.6 MG ORAL TABLET 520230 COLCHICINE Inactive JANUVIA 100 MG ORAL TABLET 1/2 by mouth every day 2011 JANUVIA 100 MG ORAL TABLET SITAGLIPTIN PHOSPHATE Inactive SIMVASTATIN 20 MG ORAL TABLET 1 tab daily at bedtime 2 SIMVASTATIN 20 MG ORAL TABLET 506133 SIMVASTATIN Inactive COUMADIN 6 MG ORAL TABLET 1 by mouth every other day COUMADIN 6 MG ORAL TABLET 882191 WARFARIN SODIUM Inactive COUMADIN 5 MG ORAL TABLET 1 by mouth every other day COUMADIN 5 MG ORAL TABLET 204532 WARFARIN SODIUM Inactive LISINOPRIL 20 MG ORAL TABLET 1 tab po at HS LISINOPRIL 20 MG ORAL TABLET 975675 LISINOPRIL Inactive LISINOPRIL-HYDROCHLOROTHIAZIDE 20-12.5 MG ORAL TABLET 1 tab by m outh daily LISINOPRIL-HYDROCHLOROTHIAZIDE 20-12.5 MG ORAL TABLET 209069 LISINOPRIL-HYDROCHLOROTHIAZIDE Inactive POLYTRIM 09076-4.1 UNIT/ML-% OPHTHALMIC SOLUTION 1 rui p in affected eye every 3 hours while awake x 7 days POLYTRIM 1000 0-0.1 UNIT/ML-% OPHTHALMIC SOLUTION 506481 POLYMYXIN B-TRIMETHOPRIM Inactive COUMADIN 4 MG ORAL TABLET 1 tablet daily COUMADIN 4 MG ORAL TABLET 625179 WARFARIN SODIUM Inactive CLONIDINE HCL 0.1 MG ORAL TABLET 1 po bid 7 days, then 2 t ab po bid 7 days CLONIDINE HCL 0.1 MG ORAL TABLET 841735 CLONIDIN E HCL Inactive ALLOPURINOL 300 MG ORAL TABLET Take 1 tablet by mouth daily 2012 ALLOPURINOL 300 MG ORAL TABLET 968077 ALLOPURINOL I nactive MECLIZINE HCL 25 MG ORAL TABLET 1 po tid 3 days, then 1/2 ta b tid 3 days MECLIZINE HCL 25 MG ORAL TABLET 404584 MECLIZINE HCL Inactive AMLODIPINE BESYLATE 5 MG ORAL TABLET 1 tablet by mouth daily 201 01/20/04 AMLODIPINE BESYLATE 5 MG ORAL TABLET 581294 AMLODIPINE BESYLATE Inactive KEFLEX 500 MG ORAL CAPSULE 1 po qid K EFLEX 500 MG ORAL CAPSULE 731909 CEPHALEXIN Inactive COLCRYS 0.6 MG ORAL TABLET 1 tab qid prn gout COLCRYS 0.6 MG ORAL TABLET 085464 COLCHICINE Inactive FAMOTIDINE 20 MG ORAL TABLET by mouth twice a day 2017 FAMOTIDINE 20 MG ORAL TABLET 645939 FAMOTIDINE Inactive LOVENOX 100 MG/ML SUBCUTANEOUS SOLUTION One injection twice a da y LOVENOX 100 MG/ML SUBCUTANEOUS SOLUTION 191382 ENOXAPAR IN SODIUM Inactive Vital Signs Date [...] HGBA1C - Chemistry cholesterol, serum 136 mg/dL 280-440 9187/12/06 triglyceride, serum, fasting 247 mg/dL 30-200 HDL cholesterol, serum 41 mg/dL 32-60 LDL cholesterol, serum 46 mg/dL 0-130 aspartate aminotransferase (SGOT), serum 22 U/L 15-37 alanine aminotransferase (SGPT), serum 30 U/L 12-78 bilirubin, serum, total 0.80 mg/dL 0.00-1.00 hemoglobin A1C, blood, as % of total hemoglobin 6.4 % 4.3-6.0 Encounters Code Encounter Date Provider Facility CPT-85830 Level 3 Est. Patient 18:25:[address] [facility] CPT-06263 Level 3 Est. Patient 19:43:[address] [facility] CPT-77847 Level 4 Est. Patient 09:30:[address] [facility] CPT-17542 Level 3 Est. Patient 15:10:14 [facility] CPT-75877 Level 3 Est. Patient 15:03:46 CDT Joe Jason kamara [facility] CPT-93286 Level 3 Est. Patient 14:21:06 CDT Mitch Castellano [facility] CPT-89880 Level 3 Est. Patient 14:52:06 CDT Joe Jason kamara [facility] CPT-20188 Level 3 Est. 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 CPT-63262 Level 3 Est. Patient 09:37:[address] [facility] CPT-96847 Level 3 Est. Patient 17:01:00 FINANCIAL PLANNING ASSISTANT Mitch luis [facility] CPT-31685 Level 3 Est. Patient 13:53:19 FINANCIAL PLANNING ASSISTANT Mitch luis [facility] CPT-82966 Level 3 Est. Patient 19:19:37 FINANCIAL PLANNING ASSISTANT Mitch luis [facility] CPT-04068 Level 3 Est. Patient 13:25:53 FINANCIAL PLANNING ASSISTANT Tavo toure MD [facility] CPT-06738 Level 3 Est. Patient 18:17:28 CDT Mitch luis [facility] CPT-95536 Level 3 Est. Patient 15:22:[address] [facility] CPT-85619 Level 3 Est. Patient 18:21:[address] [facility] CPT-45199 Level 3 Est. Patient 18:20:[address] [facility] CPT-30498 Level 3 Est. Patient 15:37:55 CDT Mitch luis [facility] CPT-51620 Level 2 Est. Patient 15:54:44 CDT Carmine benton MD [facility] CPT-05213 Level 3 Est. Patient 21:46:01 FINANCIAL PLANNING ASSISTANT Mitch luis [facility] CPT-50399 Level 3 Est. Patient 22:15:50 CDT Mitch luis [facility] CPT-05904 Level 3 Est. Patient 10:48:15 CDT Mitch luis [facility] CPT-73523 Level 3 Est. Patient 23:20:57 CDT Tavo toure MD [facility] CPT-01747 Level 3 Est. Patient 16:26:13 CDT Mitch luis [facility] Procedures Code Procedure Name Date Entry Date Standard Desc ription CPT-JTINJ Asp/Joint Injection 18:47:02 CDT CPT-33034 Venipuncture Draw Fee 09:26:17 CDT CPT-94938 PT/INR - LAB USE ONLY 13:32:49 FINANCIAL PLANNING ASSISTANT CPT-55383 Venipuncture Draw Fee 13:32:49 FINANCIAL PLANNING ASSISTANT CPT-05976 PT/INR - LAB USE ONLY 10:34:49 FINANCIAL PLANNING ASSISTANT CPT-33529 Venipuncture Draw Fee 10:34:48 FINANCIAL PLANNING ASSISTANT CPT-64334 PT/INR - LAB USE ONLY 09:22:03 FINANCIAL PLANNING ASSISTANT CPT-37047 Venipuncture Draw Fee 09:22:02 FINANCIAL PLANNING ASSISTANT CPT-49064 Hemoccult IFOBT - LAB USE ONLY 10:27:22 CDT CPT-80939 Venipuncture Draw Fee 08:27:08 CDT CPT-55091 Liver Profile - LAB USE ONLY 08:27:07 CDT 2 CPT-57920 Microalbumin - LAB USE ONLY 08:27:07 CDT 20 25/05/09 CPT-16669 PT/INR - LAB USE ONLY 08:27:07 CDT CPT-02782 HGBA1C - LAB USE ONLY 08:27:07 CDT CPT-99038 CBC - LAB USE ONLY 08:27:07 CDT CPT-83383 Venipuncture Draw Fee 11:09:14 CDT CPT-36054 Venipuncture Draw Fee 08:32:21 FINANCIAL PLANNING ASSISTANT CPT-45147 Venipuncture Draw Fee 09:38:56 FINANCIAL PLANNING ASSISTANT CPT-38481 No Charge Offi Visit 21:36:07 CDT 1 CPT-38243 Venipuncture Draw Fee 10:13:28 FINANCIAL PLANNING ASSISTANT CPT-36195 Venipuncture Draw Fee 08:31:11 CDT CPT-99312 Aspir/Inject Med Joint 18:17:28 CDT CPT-44622 Venipuncture Draw Fee 10:13:30 CDT CPT-10074 Venipuncture Draw Fee 08:31:43 FINANCIAL PLANNING ASSISTANT CPT-JTINJ Joint Injection 18:34:50 CDT CPT-06658 Knee 3V 12:25:09 CDT CPT-33590 Venipuncture Draw Fee 12:15:57 CDT CPT-060 Medical Surveillance Exam 21:31:43 CDT 2011 CPT-93148 Venipuncture Draw Fee 08:32:05 FINANCIAL PLANNING ASSISTANT CPT-OV Office Visit 18:19:06 CDT
--- OUTSIDE RECORDS SUMMARY | 2020-01-18 13:33 | XMS REPORT | Clinical Summary ---
Author Author Admin, Mitch Leon Organization [facility] Address Unknown Phone Unavailable Allergies, Adverse [...] Coronary atherosclerosis of unspecified type of vessel, [place] or graft EDEMA 782.3 Resolved Mitch Urbina [...] 1/2 tab po q day ERICKA BARBA 82699051157 Active Renee Oconnor LPN Active FAMOTIDINE 20 MG ORAL TABLET by mouth twice a day 2017 FAMOTIDINE 68179408383 No Longer Active Mitch Urbina DO Active COLCRYS 0.6 MG ORAL TABLET 1 tab qid prn gout C OLCHICINE 49750568650 No Longer Active Mitch Urbina DO Active GLIMEPIRIDE 2 MG ORAL TABLET 1 po BID GLIMEPIRID E 37534778528 Active Renee Oconnor LPN Active KEFLEX 500 MG ORAL CAPSULE 1 po qid CEPHALEXI N 52072473442 No Longer Active Mitch Urbina DO Active LOSARTAN POTASSIUM 100 MG ORAL TABLET 1 pill by mouth daily, for blood pressure LOSARTAN POTASSIUM 52195459964 Active Mitch Urbina DO Active AMLODIPINE BESYLATE 5 MG ORAL TABLET 1 tablet by mouth daily 201 01/20/04 AMLODIPINE BESYLATE 54940620994 No Longer Active Joe fulton APRN Active MITIGARE 0.6 MG ORAL CAPSULE 2 capsules at onset of go ut pain, then take one capsule at 1 hour if symptoms persist. COLCHICINE 59 766892928 Active Mitch Urbina DO Active COUMADIN 1 MG ORAL TABLET 2 tabs orally daily with the 5mg tab to equal 7mg daily WARFARIN SODIUM 74161572322 Active Mitch Urbina DO Active INVOKANA 100 MG ORAL TABLET 1 tablet orally daily CANAGLIFLOZIN 24527585184 Active Curly Coker MD Active MINOXIDIL 2.5 MG ORAL TABLET 1 tablet daily for high blood press ure MINOXIDIL 76989397048 Active Renee Oconnor LPN Active MECLIZINE HCL 25 MG ORAL TABLET 1 po tid 3 days, then 1/2 ta b tid 3 days MECLIZINE HCL 04879242505 No Longer Active Corey SEGURA Active ALLOPURINOL 300 MG ORAL TABLET Take 1 tablet by mouth daily 2012 ALLOPURINOL 17190277068 No Longer Active Corey SEGURA Active CLONIDINE HCL 0.1 MG ORAL TABLET 1 po bid 7 days, then 1/2 t ab po bid 7 days CLONIDINE HCL 20704802550 No Longer Active Corey SEGURA Active COUMADIN 5 MG ORAL TABLET 1 tab PO daily WARFAR IN SODIUM 37757568699 Active Curly Coker MD Active COUMADIN 4 MG ORAL TABLET 1 tablet daily WARFAR IN SODIUM 83143113312 No Longer Active Corey SEGURA Active POLYTRIM 04756-1.1 UNIT/ML-% OPHTHALMIC SOLUTION 1 rui p in affected eye every 3 hours while awake x 7 days POLYMYXIN B-TRIMETHOP RIM 41619741554 No Longer Active Corey SEGURA Active LOSARTAN POTASSIUM-HCTZ 100-12.5 MG ORAL TABLET 1 by m outh daily for high blood pressure LOSARTAN POTASSIUM-HCTZ 10556558323 No Longer A ctive Mitch Urbina DO Active LISINOPRIL-HYDROCHLOROTHIAZIDE 20-12.5 MG ORAL TABLET 1 tab by m outh daily LISINOPRIL-HYDROCHLOROTHIAZIDE 43529219362 No Longer Active Mitch Urbina DO Active LISINOPRIL 20 MG ORAL TABLET 1 tab po at HS LIS INOPRIL 33965521799 No Longer Active Mitch Urbina DO Active COUMADIN 5 MG ORAL TABLET 1 by mouth every other day 2 WARFARIN SODIUM 40113585823 No Longer Active Mitch Urbina DO Active COUMADIN 6 MG ORAL TABLET 1 by mouth every other day 2 WARFARIN SODIUM 04980812291 No Longer Active Mitch Urbina DO Active SIMVASTATIN 40 MG ORAL TABLET 1 tab daily at bedtime SIMVASTATIN 64297605361 Active Renee Oconnor LPN Active SIMVASTATIN 20 MG ORAL TABLET 1 tab daily at bedtime 2 SIMVASTATIN 75022986142 No Longer Active Mitch Urbina DO Active LOVENOX 100 MG/ML SUBCUTANEOUS SOLUTION One injection twice a da y ENOXAPARIN SODIUM 48718271314 No Longer Active Carmine Yusuf MD Active JANUVIA 50 MG ORAL TABLET Take one by mouth daily SITAGLIPTIN PHOSPHATE 21009977374 Active Mitch Urbina DO Active JANUVIA 100 MG ORAL TABLET 1/2 by mouth every day 2011 SITAGLIPTIN PHOSPHATE 83361756952 No Longer Active Bijal Segal RN Acti ve METFORMIN HCL 500 MG ORAL TABLET 2 by mouth twice daily METFORMIN HCL 29364826804 Active Mitch Urbina DO Active COLCRYS 0.6 MG ORAL TABLET 1 po q 6 hours prn gout pain COLCHICINE 70745286306 No Longer Active Camila Reese Active LISINOPRIL 5 MG ORAL TABLET 1 by mouth every day 11/17 LISINOPRIL 03263795433 No Longer Active Nguyen Perez Active KLOR-CON 20 MEQ ORAL PACKET Take one by mouth daily 09/10/08 POTASSIUM CHLORIDE 35847470814 No Longer Active Nguyen Perez Active FUROSEMIDE 40 MG ORAL TABLET 1 by mouth daily F UROSEMIDE 24593642105 No Longer Active Nguyen Perez Active PROVIGIL 100 MG ORAL TABLET Take one by mouth daily 08/20/04 MODAFINIL 05004764209 No Longer Active Mitch Urbina DO Active BACTRIM DS 800-160 MG ORAL TABLET 1 tab by mouth twice daily 201 10/19/09 TRIMETHOPRIM-SULFAMETHOXAZOLE 99317587371 No Longer Active Elian Hays MD Active ADULT ASPIRIN LOW STRENGTH 81 MG ORAL TABLET DISINTEGR ATING 1 by mouth every daily ASPIRIN 74782581091 Active Mitch Urbina DO Ac tive METOPROLOL TARTRATE 50 MG ORAL TABLET 1 by mouth twice daily METOPROLOL TARTRATE 86679711132 Active Mitch Urbina DO Active BACTRIM DS 800-160 MG ORAL TABLET 1 tab by mouth twice daily 201 10/19/09 BACTRIM DS 800-160 MG ORAL TABLET 025956 TRIMETHOPRIM-SULFAMETHOXAZOLE Inactive PROVIGIL 100 MG ORAL TABLET Take one by mouth daily 20 08/20/04 PROVIGIL 100 MG ORAL TABLET 977806 MODAFINIL Inactive FUROSEMIDE 40 MG ORAL TABLET 1 by mouth daily FUROSEMIDE 40 MG ORAL TABLET 574181 FUROSEMIDE Inactive KLOR-CON 20 MEQ ORAL PACKET Take one by mouth daily 09/10/08 KLOR- CON 20 MEQ ORAL PACKET 1450344 POTASSIUM CHLORIDE Inactive LISINOPRIL 5 MG ORAL TABLET 1 by mouth every day 11/17 LISINOPRIL 5 MG ORAL TABLET 679853 LISINOPRIL Inactive COLCRYS 0.6 MG ORAL TABLET 1 po q 6 hours prn gout pain COLCRYS 0.6 MG ORAL TABLET 951518 COLCHICINE Inactive JANUVIA 100 MG ORAL TABLET 1/2 by mouth every day 2011 JANUVIA 100 MG ORAL TABLET SITAGLIPTIN PHOSPHATE Inactive SIMVASTATIN 20 MG ORAL TABLET 1 tab daily at bedtime 2 SIMVASTATIN 20 MG ORAL TABLET 667467 SIMVASTATIN Inactive COUMADIN 6 MG ORAL TABLET 1 by mouth every other day COUMADIN 6 MG ORAL TABLET 032987 WARFARIN SODIUM Inactive COUMADIN 5 MG ORAL TABLET 1 by mouth every other day COUMADIN 5 MG ORAL TABLET 767915 WARFARIN SODIUM Inactive LISINOPRIL 20 MG ORAL TABLET 1 tab po at HS LISINOPRIL 20 MG ORAL TABLET 796717 LISINOPRIL Inactive LISINOPRIL-HYDROCHLOROTHIAZIDE 20-12.5 MG ORAL TABLET 1 tab by m outh daily LISINOPRIL-HYDROCHLOROTHIAZIDE 20-12.5 MG ORAL TABLET 838313 LISINOPRIL-HYDROCHLOROTHIAZIDE Inactive POLYTRIM 97586-3.1 UNIT/ML-% OPHTHALMIC SOLUTION 1 rui p in affected eye every 3 hours while awake x 7 days POLYTRIM 1000 0-0.1 UNIT/ML-% OPHTHALMIC SOLUTION 189949 POLYMYXIN B-TRIMETHOPRIM Inactive COUMADIN 4 MG ORAL TABLET 1 tablet daily COUMADIN 4 MG ORAL TABLET 010193 WARFARIN SODIUM Inactive CLONIDINE HCL 0.1 MG ORAL TABLET 1 po bid 7 days, then 2 t ab po bid 7 days CLONIDINE HCL 0.1 MG ORAL TABLET 931002 CLONIDIN E HCL Inactive ALLOPURINOL 300 MG ORAL TABLET Take 1 tablet by mouth daily 2012 ALLOPURINOL 300 MG ORAL TABLET 251887 ALLOPURINOL I nactive MECLIZINE HCL 25 MG ORAL TABLET 1 po tid 3 days, then 1/2 ta b tid 3 days MECLIZINE HCL 25 MG ORAL TABLET 306392 MECLIZINE HCL Inactive AMLODIPINE BESYLATE 5 MG ORAL TABLET 1 tablet by mouth daily 201 01/20/04 AMLODIPINE BESYLATE 5 MG ORAL TABLET 701187 AMLODIPINE BESYLATE Inactive KEFLEX 500 MG ORAL CAPSULE 1 po qid K EFLEX 500 MG ORAL CAPSULE 867358 CEPHALEXIN Inactive COLCRYS 0.6 MG ORAL TABLET 1 tab qid prn gout COLCRYS 0.6 MG ORAL TABLET 811305 COLCHICINE Inactive FAMOTIDINE 20 MG ORAL TABLET by mouth twice a day 2017 FAMOTIDINE 20 MG ORAL TABLET 675940 FAMOTIDINE Inactive LOVENOX 100 MG/ML SUBCUTANEOUS SOLUTION One injection twice a da y LOVENOX 100 MG/ML SUBCUTANEOUS SOLUTION 373657 ENOXAPAR IN SODIUM Inactive Vital Signs Date [...] aspartate aminotransferase (SGOT), serum 22 U/L 15-37 LDL cholesterol, serum 46 mg/dL 0-130 HDL cholesterol, serum 41 mg/dL 32-60 triglyceride, serum, fasting 247 mg/dL 30-200 cholesterol, serum 136 mg/dL 793-181 6161/12/06 alanine aminotransferase (SGPT), serum 30 U/L 12-78 bilirubin, serum, total 0.80 mg/dL 0.00-1.00 hemoglobin A1C, blood, as % of total hemoglobin 6.4 % 4.3-6.0 Encounters Code Encounter Date Provider Facility CPT-40234 Level 3 Est. Patient 18:25:53 CDT Mitch luis [facility] CPT-51040 Level 3 Est. Patient 19:43:34 CDT Mitch luis [facility] CPT-19550 Level 4 Est. Patient 09:30:18 CDT Mitch luis [facility] CPT-41339 Level 3 Est. Patient 15:10:14 [facility] CPT-05116 Level 3 Est. Patient 15:03:46 CDT Joe Jason kamara [facility] CPT-59817 Level 3 Est. Patient 14:21:06 CDT Mitch Castellano janelle [facility] CPT-84566 Level 3 Est. Patient 14:52:06 CDT Joe Jason kamara [facility] CPT-73552 Level 3 Est. Patient 09:34:30 CABLE TELEVISION LINE TECHNICIAN Mitch luis [facility] CPT-45738 Level 3 Est. Patient 09:37:15 CDT Mitch luis [facility] CPT-49576 Level 3 Est. Patient 17:01:00 CABLE TELEVISION LINE TECHNICIAN Mitch luis [facility] CPT-17142 Level 3 Est. Patient 13:53:19 CABLE TELEVISION LINE TECHNICIAN Mitch luis [facility] CPT-69643 Level 3 Est. Patient 19:19:37 CABLE TELEVISION LINE TECHNICIAN Mitch luis [facility] CPT-58957 Level 3 Est. Patient 13:25:53 CABLE TELEVISION LINE TECHNICIAN Tavo toure MD [facility] CPT-86051 Level 3 Est. Patient 18:17:28 CDT Mitch luis [facility] CPT-82235 Level 3 Est. Patient 15:22:57 CDT Mitch luis [facility] CPT-93693 Level 3 Est. Patient 18:21:50 CDT Mitch luis [facility] CPT-68572 Level 3 Est. Patient 18:20:38 CDT Mitch luis [facility] CPT-54377 Level 3 Est. Patient 15:37:55 CDT Mitch luis [facility] CPT-54209 Level 2 Est. Patient 15:54:44 CDT Carmine benton MD [facility] CPT-03763 Level 3 Est. Patient 21:46:01 CABLE TELEVISION LINE TECHNICIAN Mitch luis [facility] CPT-24087 Level 3 Est. Patient 22:15:50 CDT Mitch luis [facility] CPT-18865 Level 3 Est. Patient 10:48:15 CDT Mitch luis [facility] CPT-41385 Level 3 Est. Patient 23:20:57 CDT Tavo toure MD [facility] CPT-71512 Level 3 Est. Patient 16:26:13 CDT Mitch luis [facility] Procedures Code Procedure Name Date Entry Date Standard Desc ription CPT-JTINJ Asp/Joint Injection 18:47:02 CDT CPT-01825 Venipuncture Draw Fee 09:26:17 CDT CPT-77964 PT/INR - LAB USE ONLY 13:32:49 CABLE TELEVISION LINE TECHNICIAN CPT-59728 Venipuncture Draw Fee 13:32:49 CABLE TELEVISION LINE TECHNICIAN CPT-65579 PT/INR - LAB USE ONLY 10:34:49 CABLE TELEVISION LINE TECHNICIAN CPT-40091 Venipuncture Draw Fee 10:34:48 CABLE TELEVISION LINE TECHNICIAN CPT-67421 PT/INR - LAB USE ONLY 09:22:03 CABLE TELEVISION LINE TECHNICIAN CPT-40459 Venipuncture Draw Fee 09:22:02 CABLE TELEVISION LINE TECHNICIAN CPT-76202 Hemoccult IFOBT - LAB USE ONLY 10:27:22 CDT CPT-33058 Venipuncture Draw Fee 08:27:08 CDT CPT-10681 Liver Profile - LAB USE ONLY 08:27:07 CDT 2 CPT-13121 Microalbumin - LAB USE ONLY 08:27:07 CDT 20 25/05/09 CPT-50323 PT/INR - LAB USE ONLY 08:27:07 CDT CPT-16454 HGBA1C - LAB USE ONLY 08:27:07 CDT CPT-24330 CBC - LAB USE ONLY 08:27:07 CDT CPT-77793 Venipuncture Draw Fee 11:09:14 CDT CPT-27687 Venipuncture Draw Fee 08:32:21 CABLE TELEVISION LINE TECHNICIAN CPT-52661 Venipuncture Draw Fee 09:38:56 CABLE TELEVISION LINE TECHNICIAN CPT-90734 No Charge Offi Visit 21:36:07 CDT 1 CPT-50967 Venipuncture Draw Fee 10:13:28 CABLE TELEVISION LINE TECHNICIAN CPT-80958 Venipuncture Draw Fee 08:31:11 CDT CPT-16274 Aspir/Inject Med Joint 18:17:28 CDT CPT-90663 Venipuncture Draw Fee 10:13:30 CDT CPT-03676 Venipuncture Draw Fee 08:31:43 CABLE TELEVISION LINE TECHNICIAN CPT-JTINJ Joint Injection 18:34:50 CDT CPT-08480 Knee 3V 12:25:09 CDT CPT-64467 Venipuncture Draw Fee 12:15:57 CDT CPT-060 Medical Surveillance Exam 21:31:43 CDT 2011 CPT-43261 Venipuncture Draw Fee 08:32:05 CABLE TELEVISION LINE TECHNICIAN CPT-OV Office Visit 18:19:06 CDT
--- OUTSIDE RECORDS SUMMARY | 2020-01-18 13:33 | XMS REPORT | Clinical Summary ---
Author Author Admin, Mitch Leon Organization [facility] Address Unknown Phone Unavailable Allergies, Adverse Reactions, [...] Coronary atherosclerosis of unspecified type of vessel, [place] or graft EDEMA 782.3 Resolved [...] Mitch Urbina DO EDEMA ICD-782.3 Inactive Mitch rUbina DO DIZZINESS ICD-780.4 Inactive Mitch Urbina DO [...] 1/2 tab po q day ERICKA BARBA [id number] Active Renee Oconnor LPN Active FAMOTIDINE 20 MG ORAL TABLET by mouth twice a day 2017 FAMOTIDINE 58390218979 No Longer Active Mitch Urbina DO Active COLCRYS 0.6 MG ORAL TABLET 1 tab qid prn gout C OLCHICINE 53563679827 No Longer Active Mitch Urbina DO Active GLIMEPIRIDE 2 MG ORAL TABLET 1 po BID GLIMEPIRID E 33207567315 Active Renee Oconnor LPN Active KEFLEX 500 MG ORAL CAPSULE 1 po qid CEPHALEXI N 49385801281 No Longer Active Mitch Urbina DO Active LOSARTAN POTASSIUM 100 MG ORAL TABLET 1 pill by mouth daily, for blood pressure LOSARTAN POTASSIUM 21457691293 Active Mitch Urbina DO Active AMLODIPINE BESYLATE 5 MG ORAL TABLET 1 tablet by mouth daily 201 01/20/04 AMLODIPINE BESYLATE 26415181091 No Longer Active Joe fulton APRN Active MITIGARE 0.6 MG ORAL CAPSULE 2 capsules at onset of go ut pain, then take one capsule at 1 hour if symptoms persist. COLCHICINE 59 504470639 Active Mitch Urbina DO Active COUMADIN 1 MG ORAL TABLET 2 tabs orally daily with the 5mg tab to equal 7mg daily WARFARIN SODIUM 45676401151 Active Mitch Urbina DO Active INVOKANA 100 MG ORAL TABLET 1 tablet orally daily CANAGLIFLOZIN 71993647262 Active Curly Coker MD Active MINOXIDIL 2.5 MG ORAL TABLET 1 tablet daily for high blood press ure MINOXIDIL 83212028758 Active Renee Oconnor LPN Active MECLIZINE HCL 25 MG ORAL TABLET 1 po tid 3 days, then 1/2 ta b tid 3 days MECLIZINE HCL 60370681472 No Longer Active Corey SEGURA Active ALLOPURINOL 300 MG ORAL TABLET Take 1 tablet by mouth daily 2012 ALLOPURINOL 81844537343 No Longer Active Corey SEGURA Active CLONIDINE HCL 0.1 MG ORAL TABLET 1 po bid 7 days, then 1/2 t ab po bid 7 days CLONIDINE HCL 54790935633 No Longer Active Corey SEGURA Active COUMADIN 5 MG ORAL TABLET 1 tab PO daily WARFAR IN SODIUM 97064147405 Active Curly Coker MD Active COUMADIN 4 MG ORAL TABLET 1 tablet daily WARFAR IN SODIUM 93711652185 No Longer Active Corey SEGURA Active POLYTRIM 89279-1.1 UNIT/ML-% OPHTHALMIC SOLUTION 1 rui p in affected eye every 3 hours while awake x 7 days POLYMYXIN B-TRIMETHOP RIM 77570202176 No Longer Active Corey SEGUAR Active LOSARTAN POTASSIUM-HCTZ 100-12.5 MG ORAL TABLET 1 by m outh daily for high blood pressure LOSARTAN POTASSIUM-HCTZ 64514355424 No Longer A ctive Mitch Urbina DO Active LISINOPRIL-HYDROCHLOROTHIAZIDE 20-12.5 MG ORAL TABLET 1 tab by m outh daily LISINOPRIL-HYDROCHLOROTHIAZIDE 47445621565 No Longer Active Mitch Urbina DO Active LISINOPRIL 20 MG ORAL TABLET 1 tab po at HS LIS INOPRIL 73906086711 No Longer Active Mitch Urbina DO Active COUMADIN 5 MG ORAL TABLET 1 by mouth every other day 2 WARFARIN SODIUM 08819505886 No Longer Active Mitch Urbina DO Active COUMADIN 6 MG ORAL TABLET 1 by mouth every other day 2 WARFARIN SODIUM 99964434183 No Longer Active Mitch Urbina DO Active SIMVASTATIN 40 MG ORAL TABLET 1 tab daily at bedtime SIMVASTATIN 32545972786 Active Renee Oconnor LPN Active SIMVASTATIN 20 MG ORAL TABLET 1 tab daily at bedtime 2 SIMVASTATIN 25722655988 No Longer Active Mitch Urbina DO Active LOVENOX 100 MG/ML SUBCUTANEOUS SOLUTION One injection twice a da y ENOXAPARIN SODIUM 57529050842 No Longer Active Carmine Yusuf MD Active JANUVIA 50 MG ORAL TABLET Take one by mouth daily SITAGLIPTIN PHOSPHATE 31561917411 Active Mitch Urbina DO Active JANUVIA 100 MG ORAL TABLET 1/2 by mouth every day 2011 SITAGLIPTIN PHOSPHATE 87213352971 No Longer Active Bijal Segal RN Acti ve METFORMIN HCL 500 MG ORAL TABLET 2 by mouth twice daily METFORMIN HCL 69165001706 Active Mitch Urbina DO Active COLCRYS 0.6 MG ORAL TABLET 1 po q 6 hours prn gout pain COLCHICINE 61646996392 No Longer Active Camila Reese Active LISINOPRIL 5 MG ORAL TABLET 1 by mouth every day 11/17 LISINOPRIL 28443435532 No Longer Active Nguyen Perez Active KLOR-CON 20 MEQ ORAL PACKET Take one by mouth daily 09/10/08 POTASSIUM CHLORIDE 80453231396 No Longer Active Nguyen Perez Active FUROSEMIDE 40 MG ORAL TABLET 1 by mouth daily F UROSEMIDE 56399627715 No Longer Active Nguyen Perez Active PROVIGIL 100 MG ORAL TABLET Take one by mouth daily 08/20/04 MODAFINIL 73120813335 No Longer Active Mitch Urbina DO Active BACTRIM DS 800-160 MG ORAL TABLET 1 tab by mouth twice daily 201 10/19/09 TRIMETHOPRIM-SULFAMETHOXAZOLE 68439261778 No Longer Active Elian Hays MD Active ADULT ASPIRIN LOW STRENGTH 81 MG ORAL TABLET DISINTEGR ATING 1 by mouth every daily ASPIRIN 26790334005 Active Mitch Urbina DO Ac tive METOPROLOL TARTRATE 50 MG ORAL TABLET 1 by mouth twice daily METOPROLOL TARTRATE 54845963881 Active Mitch Urbina DO Active BACTRIM DS 800-160 MG ORAL TABLET 1 tab by mouth twice daily 201 10/19/09 BACTRIM DS 800-160 MG ORAL TABLET 441452 TRIMETHOPRIM-SULFAMETHOXAZOLE Inactive PROVIGIL 100 MG ORAL TABLET Take one by mouth daily 20 08/20/04 PROVIGIL 100 MG ORAL TABLET 001304 MODAFINIL Inactive FUROSEMIDE 40 MG ORAL TABLET 1 by mouth daily FUROSEMIDE 40 MG ORAL TABLET 327406 FUROSEMIDE Inactive KLOR-CON 20 MEQ ORAL PACKET Take one by mouth daily 09/10/08 KLOR- CON 20 MEQ ORAL PACKET 7383902 POTASSIUM CHLORIDE Inactive LISINOPRIL 5 MG ORAL TABLET 1 by mouth every day 11/17 LISINOPRIL 5 MG ORAL TABLET 794689 LISINOPRIL Inactive COLCRYS 0.6 MG ORAL TABLET 1 po q 6 hours prn gout pain COLCRYS 0.6 MG ORAL TABLET 874813 COLCHICINE Inactive JANUVIA 100 MG ORAL TABLET 1/2 by mouth every day 2011 JANUVIA 100 MG ORAL TABLET SITAGLIPTIN PHOSPHATE Inactive SIMVASTATIN 20 MG ORAL TABLET 1 tab daily at bedtime 2 SIMVASTATIN 20 MG ORAL TABLET 492242 SIMVASTATIN Inactive COUMADIN 6 MG ORAL TABLET 1 by mouth every other day COUMADIN 6 MG ORAL TABLET 274553 WARFARIN SODIUM Inactive COUMADIN 5 MG ORAL TABLET 1 by mouth every other day COUMADIN 5 MG ORAL TABLET 600578 WARFARIN SODIUM Inactive LISINOPRIL 20 MG ORAL TABLET 1 tab po at HS LISINOPRIL 20 MG ORAL TABLET 111870 LISINOPRIL Inactive LISINOPRIL-HYDROCHLOROTHIAZIDE 20-12.5 MG ORAL TABLET 1 tab by m outh daily LISINOPRIL-HYDROCHLOROTHIAZIDE 20-12.5 MG ORAL TABLET 030025 LISINOPRIL-HYDROCHLOROTHIAZIDE Inactive POLYTRIM 33385-2.1 UNIT/ML-% OPHTHALMIC SOLUTION 1 rui p in affected eye every 3 hours while awake x 7 days POLYTRIM 1000 0-0.1 UNIT/ML-% OPHTHALMIC SOLUTION 769540 POLYMYXIN B-TRIMETHOPRIM Inactive COUMADIN 4 MG ORAL TABLET 1 tablet daily COUMADIN 4 MG ORAL TABLET 149324 WARFARIN SODIUM Inactive CLONIDINE HCL 0.1 MG ORAL TABLET 1 po bid 7 days, then 2 t ab po bid 7 days CLONIDINE HCL 0.1 MG ORAL TABLET 397703 CLONIDIN E HCL Inactive ALLOPURINOL 300 MG ORAL TABLET Take 1 tablet by mouth daily 2012 ALLOPURINOL 300 MG ORAL TABLET 406110 ALLOPURINOL I nactive MECLIZINE HCL 25 MG ORAL TABLET 1 po tid 3 days, then 1/2 ta b tid 3 days MECLIZINE HCL 25 MG ORAL TABLET 143755 MECLIZINE HCL Inactive AMLODIPINE BESYLATE 5 MG ORAL TABLET 1 tablet by mouth daily 201 01/20/04 AMLODIPINE BESYLATE 5 MG ORAL TABLET 728867 AMLODIPINE BESYLATE Inactive KEFLEX 500 MG ORAL CAPSULE 1 po qid K EFLEX 500 MG ORAL CAPSULE 464071 CEPHALEXIN Inactive COLCRYS 0.6 MG ORAL TABLET 1 tab qid prn gout COLCRYS 0.6 MG ORAL TABLET 528419 COLCHICINE Inactive FAMOTIDINE 20 MG ORAL TABLET by mouth twice a day 2017 FAMOTIDINE 20 MG ORAL TABLET 324300 FAMOTIDINE Inactive LOVENOX 100 MG/ML SUBCUTANEOUS SOLUTION One injection twice a da y LOVENOX 100 MG/ML SUBCUTANEOUS SOLUTION 285922 ENOXAPAR IN SODIUM Inactive Vital Signs Date [...] HGBA1C - Chemistry cholesterol, serum 136 mg/dL 352-257 5595/12/06 triglyceride, serum, fasting 247 mg/dL 30-200 HDL cholesterol, serum 41 mg/dL 32-60 LDL cholesterol, serum 46 mg/dL 0-130 aspartate aminotransferase (SGOT), serum 22 U/L 15-37 alanine aminotransferase (SGPT), serum 30 U/L 12-78 bilirubin, serum, total 0.80 mg/dL 0.00-1.00 hemoglobin A1C, blood, as % of total hemoglobin 6.4 % 4.3-6.0 Encounters Code Encounter Date Provider Facility CPT-95513 Level 3 Est. Patient 18:25:53 CDT Mitch luis [facility] CPT-13459 Level 3 Est. Patient 19:43:34 CDT Mitch luis [facility] CPT-47695 Level 4 Est. Patient 09:30:18 CDT Mitch luis [facility] CPT-95290 Level 3 Est. Patient 15:10:14 CDT [facility] CPT-78558 Level 3 Est. Patient 15:03:46 CDT Joe Jason [facility] CPT-76264 Level 3 Est. Patient 14:21:06 CDT Mitch Castellano janelle [facility] CPT-19221 Level 3 Est. Patient 14:52:06 CDT Joe Jason [facility] CPT-26998 Level 3 Est. Patient 09:34:30 COP EXAMINER Mitch luis [facility] CPT-93373 Level 3 Est. Patient 09:37:15 CDT Mitch luis [facility] CPT-54756 Level 3 Est. Patient 17:01:00 COP EXAMINER Mitch luis [facility] CPT-44414 Level 3 Est. Patient 13:53:19 COP EXAMINER Mitch luis [facility] CPT-25176 Level 3 Est. Patient 19:19:37 COP EXAMINER Mitch luis [facility] CPT-66761 Level 3 Est. Patient 13:25:53 COP EXAMINER Tavo toure MD [facility] CPT-48352 Level 3 Est. Patient 18:17:28 CDT Mitch luis [facility] CPT-50067 Level 3 Est. Patient 15:22:57 CDT Mitch luis [facility] CPT-87913 Level 3 Est. Patient 18:21:50 CDT Mitch luis [facility] CPT-52447 Level 3 Est. Patient 18:20:38 CDT Mitch luis [facility] CPT-75033 Level 3 Est. Patient 15:37:55 CDT Mitch luis [facility] CPT-10111 Level 2 Est. Patient 15:54:44 CDT Carmine benton MD [facility] CPT-19918 Level 3 Est. Patient 21:46:01 COP EXAMINER Mitch luis [facility] CPT-10744 Level 3 Est. Patient 22:15:50 CDT Mitch luis [facility] CPT-50053 Level 3 Est. Patient 10:48:15 CDT Mitch luis [facility] CPT-04623 Level 3 Est. Patient 23:20:57 CDT Tavo toure MD [facility] CPT-25624 Level 3 Est. Patient 16:26:13 CDT Mitch luis [facility] Procedures Code Procedure Name Date Entry Date Standard Desc ription CPT-JTINJ Asp/Joint Injection 18:47:02 CDT CPT-09865 Venipuncture Draw Fee 09:26:17 CDT CPT-78114 PT/INR - LAB USE ONLY 13:32:49 COP EXAMINER CPT-30816 Venipuncture Draw Fee 13:32:49 COP EXAMINER CPT-52845 PT/INR - LAB USE ONLY 10:34:49 COP EXAMINER CPT-89637 Venipuncture Draw Fee 10:34:48 COP EXAMINER CPT-91389 PT/INR - LAB USE ONLY 09:22:03 COP EXAMINER CPT-52090 Venipuncture Draw Fee 09:22:02 COP EXAMINER CPT-04004 Hemoccult IFOBT - LAB USE ONLY 10:27:22 CDT CPT-36624 Venipuncture Draw Fee 08:27:08 CDT CPT-16607 Liver Profile - LAB USE ONLY 08:27:07 CDT 2 CPT-46831 Microalbumin - LAB USE ONLY 08:27:07 CDT 20 25/05/09 CPT-31379 PT/INR - LAB USE ONLY 08:27:07 CDT CPT-01630 HGBA1C - LAB USE ONLY 08:27:07 CDT CPT-01846 CBC - LAB USE ONLY 08:27:07 CDT CPT-94617 Venipuncture Draw Fee 11:09:14 CDT CPT-00300 Venipuncture Draw Fee 08:32:21 COP EXAMINER CPT-48373 Venipuncture Draw Fee 09:38:56 COP EXAMINER CPT-86027 No Charge Offi Visit 21:36:07 CDT 1 CPT-61646 Venipuncture Draw Fee 10:13:28 COP EXAMINER CPT-56814 Venipuncture Draw Fee 08:31:11 CDT CPT-71664 Aspir/Inject Med Joint 18:17:28 CDT CPT-14538 Venipuncture Draw Fee 10:13:30 CDT CPT-22899 Venipuncture Draw Fee 08:31:43 COP EXAMINER CPT-JTINJ Joint Injection 18:34:50 CDT CPT-85929 Knee 3V 12:25:09 CDT CPT-21786 Venipuncture Draw Fee 12:15:57 CDT CPT-060 Medical Surveillance Exam 21:31:43 CDT 2011 CPT-19342 Venipuncture Draw Fee 08:32:05 COP EXAMINER CPT-OV Office Visit 18:19:06 CDT
--- OUTSIDE RECORDS SUMMARY | 2020-01-18 13:33 | XMS REPORT | Clinical Summary ---
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 of [...] Instructions Start Date Stop Date Generic Name ND Status Provider Patient Instruction PROVIGIL 200 MG ORAL TABLET 1/2 tab po q day ERICKA BARBA 40005669688 Active Renee Oconnor LPN Active FAMOTIDINE 20 MG ORAL TABLET by mouth twice a day 2017 FAMOTIDINE 99642476874 No Longer Active Mitch Urbina DO Active COLCRYS 0.6 MG ORAL TABLET 1 tab qid prn gout C OLCHICINE 89016456435 No Longer Active Mitch Urbina DO Active GLIMEPIRIDE 2 MG ORAL TABLET 1 po BID GLIMEPIRID E 05023969118 Active Renee Oconnor LPN Active KEFLEX 500 MG ORAL CAPSULE 1 po qid CEPHALEXI N 07082838407 No Longer Active Mitch Urbina DO Active LOSARTAN POTASSIUM 100 MG ORAL TABLET 1 pill by mouth daily, for blood pressure LOSARTAN POTASSIUM 57501886178 Active Mitch Urbina DO Active AMLODIPINE BESYLATE 5 MG ORAL TABLET 1 tablet by mouth daily 201 01/20/04 AMLODIPINE BESYLATE 20168845245 No Longer Active Joe fulton APRN Active MITIGARE 0.6 MG ORAL CAPSULE 2 capsules at onset of go ut pain, then take one capsule at 1 hour if symptoms persist. COLCHICINE 59 305614929 Active Mitch Urbina DO Active COUMADIN 1 MG ORAL TABLET 2 tabs orally daily with the 5mg tab to equal 7mg daily WARFARIN SODIUM 35170949743 Active Mitch Urbina DO Active INVOKANA 100 MG ORAL TABLET 1 tablet orally daily CANAGLIFLOZIN 90051127328 Active Curly Coker MD Active MINOXIDIL 2.5 MG ORAL TABLET 1 tablet daily for high blood press ure MINOXIDIL 99624972776 Active Renee Oconnor LPN Active MECLIZINE HCL 25 MG ORAL TABLET 1 po tid 3 days, then 1/2 ta b tid 3 days MECLIZINE HCL 74961198430 No Longer Active Corey SEGURA Active ALLOPURINOL 300 MG ORAL TABLET Take 1 tablet by mouth daily 2012 ALLOPURINOL 06326275774 No Longer Active Corey SEGURA Active CLONIDINE HCL 0.1 MG ORAL TABLET 1 po bid 7 days, then 1/2 t ab po bid 7 days CLONIDINE HCL 64846923498 No Longer Active Corey SEGURA Active COUMADIN 5 MG ORAL TABLET 1 tab PO daily WARFAR IN SODIUM 66967133393 Active Curly Coker MD Active COUMADIN 4 MG ORAL TABLET 1 tablet daily WARFAR IN SODIUM 04708772468 No Longer Active Corey SEGURA Active POLYTRIM 33375-3.1 UNIT/ML-% OPHTHALMIC SOLUTION 1 rui p in affected eye every 3 hours while awake x 7 days POLYMYXIN B-TRIMETHOP RIM 07157889535 No Longer Active Corey SEGURA Active LOSARTAN POTASSIUM-HCTZ 100-12.5 MG ORAL TABLET 1 by m outh daily for high blood pressure LOSARTAN POTASSIUM-HCTZ 78125872747 No Longer A ctive Mitch Urbina DO Active LISINOPRIL-HYDROCHLOROTHIAZIDE 20-12.5 MG ORAL TABLET 1 tab by m outh daily LISINOPRIL-HYDROCHLOROTHIAZIDE 80827234096 No Longer Active Mitch Urbina DO Active LISINOPRIL 20 MG ORAL TABLET 1 tab po at HS LIS INOPRIL 74333593154 No Longer Active Mitch Urbina DO Active COUMADIN 5 MG ORAL TABLET 1 by mouth every other day 2 WARFARIN SODIUM 55230496569 No Longer Active Mitch Urbina DO Active COUMADIN 6 MG ORAL TABLET 1 by mouth every other day 2 WARFARIN SODIUM 38885784769 No Longer Active Mitch Urbina DO Active SIMVASTATIN 40 MG ORAL TABLET 1 tab daily at bedtime SIMVASTATIN 21349015684 Active Renee Oconnor LPN Active SIMVASTATIN 20 MG ORAL TABLET 1 tab daily at bedtime 2 SIMVASTATIN 22404064381 No Longer Active Mitch Urbina DO Active LOVENOX 100 MG/ML SUBCUTANEOUS SOLUTION One injection twice a da y ENOXAPARIN SODIUM 42619106977 No Longer Active Carmine Yusuf MD Active JANUVIA 50 MG ORAL TABLET Take one by mouth daily SITAGLIPTIN PHOSPHATE 70503125986 Active Mitch Urbina DO Active JANUVIA 100 MG ORAL TABLET 1/2 by mouth every day 2011 SITAGLIPTIN PHOSPHATE 07227022024 No Longer Active Bijal Segal RN Acti ve METFORMIN HCL 500 MG ORAL TABLET 2 by mouth twice daily METFORMIN HCL 12110849710 Active Mitch Urbina DO Active COLCRYS 0.6 MG ORAL TABLET 1 po q 6 hours prn gout pain COLCHICINE 06546142418 No Longer Active Camila Reese Active LISINOPRIL 5 MG ORAL TABLET 1 by mouth every day 11/17 LISINOPRIL 13526339940 No Longer Active Nguyen Perez Active KLOR-CON 20 MEQ ORAL PACKET Take one by mouth daily 20 09/10/08 POTASSIUM CHLORIDE 07938178233 No Longer Active Nguyen Perez Active FUROSEMIDE 40 MG ORAL TABLET 1 by mouth daily F UROSEMIDE 53649581077 No Longer Active Nguyen Perez Active PROVIGIL 100 MG ORAL TABLET Take one by mouth daily 08/20/04 MODAFINIL 79689872574 No Longer Active Mitch Urbina DO Active BACTRIM DS 800-160 MG ORAL TABLET 1 tab by mouth twice daily 201 10/19/09 TRIMETHOPRIM-SULFAMETHOXAZOLE 37611653284 No Longer Active Elian Hays MD Active ADULT ASPIRIN LOW STRENGTH 81 MG ORAL TABLET DISINTEGR ATING 1 by mouth every daily ASPIRIN 37932109514 Active Mitch Urbina DO Ac tive METOPROLOL TARTRATE 50 MG ORAL TABLET 1 by mouth twice daily METOPROLOL TARTRATE 32262977558 Active Mitch Urbina DO Active BACTRIM DS 800-160 MG ORAL TABLET 1 tab by mouth twice daily 201 10/19/09 BACTRIM DS 800-160 MG ORAL TABLET 051064 TRIMETHOPRIM-SULFAMETHOXAZOLE Inactive PROVIGIL 100 MG ORAL TABLET Take one by mouth daily 20 08/20/04 PROVIGIL 100 MG ORAL TABLET 311627 MODAFINIL Inactive FUROSEMIDE 40 MG ORAL TABLET 1 by mouth daily FUROSEMIDE 40 MG ORAL TABLET 502235 FUROSEMIDE Inactive KLOR-CON 20 MEQ ORAL PACKET Take one by mouth daily 09/10/08 KLOR- CON 20 MEQ ORAL PACKET 2757341 POTASSIUM CHLORIDE Inactive LISINOPRIL 5 MG ORAL TABLET 1 by mouth every day 11/17 LISINOPRIL 5 MG ORAL TABLET 548488 LISINOPRIL Inactive COLCRYS 0.6 MG ORAL TABLET 1 po q 6 hours prn gout pain COLCRYS 0.6 MG ORAL TABLET 262870 COLCHICINE Inactive JANUVIA 100 MG ORAL TABLET 1/2 by mouth every day 2011 JANUVIA 100 MG ORAL TABLET SITAGLIPTIN PHOSPHATE Inactive SIMVASTATIN 20 MG ORAL TABLET 1 tab daily at bedtime 2 SIMVASTATIN 20 MG ORAL TABLET 584338 SIMVASTATIN Inactive COUMADIN 6 MG ORAL TABLET 1 by mouth every other day COUMADIN 6 MG ORAL TABLET 587311 WARFARIN SODIUM Inactive COUMADIN 5 MG ORAL TABLET 1 by mouth every other day COUMADIN 5 MG ORAL TABLET 780494 WARFARIN SODIUM Inactive LISINOPRIL 20 MG ORAL TABLET 1 tab po at HS LISINOPRIL 20 MG ORAL TABLET 891295 LISINOPRIL Inactive LISINOPRIL-HYDROCHLOROTHIAZIDE 20-12.5 MG ORAL TABLET 1 tab by m outh daily LISINOPRIL-HYDROCHLOROTHIAZIDE 20-12.5 MG ORAL TABLET 811113 LISINOPRIL-HYDROCHLOROTHIAZIDE Inactive POLYTRIM 28663-1.1 UNIT/ML-% OPHTHALMIC SOLUTION 1 rui p in affected eye every 3 hours while awake x 7 days POLYTRIM 1000 0-0.1 UNIT/ML-% OPHTHALMIC SOLUTION 966262 POLYMYXIN B-TRIMETHOPRIM Inactive COUMADIN 4 MG ORAL TABLET 1 tablet daily COUMADIN 4 MG ORAL TABLET 218066 WARFARIN SODIUM Inactive CLONIDINE HCL 0.1 MG ORAL TABLET 1 po bid 7 days, then 1/2 t ab po bid 7 days CLONIDINE HCL 0.1 MG ORAL TABLET 912624 CLONIDIN E HCL Inactive ALLOPURINOL 300 MG ORAL TABLET Take 1 tablet by mouth daily 2012 ALLOPURINOL 300 MG ORAL TABLET 198012 ALLOPURINOL I nactive MECLIZINE HCL 25 MG ORAL TABLET 1 po tid 3 days, then 1/2 ta b tid 3 days MECLIZINE HCL 25 MG ORAL TABLET 891211 MECLIZINE HCL Inactive AMLODIPINE BESYLATE 5 MG ORAL TABLET 1 tablet by mouth daily 201 01/20/04 AMLODIPINE BESYLATE 5 MG ORAL TABLET 329683 AMLODIPINE BESYLATE Inactive KEFLEX 500 MG ORAL CAPSULE 1 po qid K EFLEX 500 MG ORAL CAPSULE 335370 CEPHALEXIN Inactive COLCRYS 0.6 MG ORAL TABLET 1 tab qid prn gout COLCRYS 0.6 MG ORAL TABLET 056116 COLCHICINE Inactive FAMOTIDINE 20 MG ORAL TABLET by mouth twice a day 2017 FAMOTIDINE 20 MG ORAL TABLET 999621 FAMOTIDINE Inactive LOVENOX 100 MG/ML SUBCUTANEOUS SOLUTION One injection twice a da y LOVENOX 100 MG/ML SUBCUTANEOUS SOLUTION 524232 ENOXAPAR IN SODIUM Inactive Vital Signs Date [...] HGBA1C - Chemistry cholesterol, serum 136 mg/dL 565-783 6647/12/06 triglyceride, serum, fasting 247 mg/dL 30-200 HDL cholesterol, serum 41 mg/dL 32-60 LDL cholesterol, serum 46 mg/dL 0-130 aspartate aminotransferase (SGOT), serum 22 U/L 15-37 alanine aminotransferase (SGPT), serum 30 U/L 12-78 bilirubin, serum, total 0.80 mg/dL 0.00-1.00 hemoglobin A1C, blood, as % of total hemoglobin 6.4 % 4.3-6.0 Encounters Code Encounter Date Provider Facility CPT-30904 Level 3 Est. Patient 18:25:53 CDT Mitch Arnol Nona janelle [facility] CPT-90736 Level 3 Est. Patient 19:43:34 CDT Mitch luis [facility] CPT-72493 Level 4 Est. Patient 09:30:18 CDT Mitch Castellano jan[facility] CPT-14957 Level 3 Est. Patient 15:10:14 CDT Joe Jason kamara [facility] CPT-55383 Level 3 Est. Patient 15:03:46 CDT Joe Jason kamara [facility] CPT-30132 Level 3 Est. Patient 14:21:06 CDT Mitch Castellano jan[facility] CPT-67586 Level 3 Est. Patient 14:52:06 CDT Joe Jason kamara [facility] CPT-51186 Level 3 Est. Patient 09:34:30 FRICKERTRON CHECKER Mitch luis [facility] CPT-43761 Level 3 Est. Patient 09:37:15 CDT Mitch Castellano jan[facility] CPT-79615 Level 3 Est. Patient 17:01:00 FRICKERTRON CHECKER Mitch luis [facility] CPT-64048 Level 3 Est. Patient 13:53:19 FRICKERTRON CHECKER Mitch luis [facility] CPT-88855 Level 3 Est. Patient 19:19:37 FRICKERTRON CHECKER Mitch luis [facility] CPT-12472 Level 3 Est. Patient 13:25:53 FRICKERTRON CHECKER Tavo toure MD [facility] CPT-91738 Level 3 Est. Patient 18:17:28 CDT Mitch luis [facility] CPT-17148 Level 3 Est. Patient 15:22:57 CDT Mitch luis [facility] CPT-21708 Level 3 Est. Patient 18:21:50 CDT Mitch luis [facility] CPT-98393 Level 3 Est. Patient 18:20:38 CDT Mitch luis [facility] CPT-94709 Level 3 Est. Patient 15:37:55 CDT Mitch luis [facility] CPT-56404 Level 2 Est. Patient 15:54:44 CDT Carmine benton MD [facility] CPT-12748 Level 3 Est. Patient 21:46:01 FRICKERTRON CHECKER Mitch luis [facility] CPT-34466 Level 3 Est. Patient 22:15:50 CDT Mitch luis [facility] CPT-71767 Level 3 Est. Patient 10:48:15 CDT Mitch luis [facility] CPT-00308 Level 3 Est. Patient 23:20:57 CDT Tavo toure MD [facility] CPT-91122 Level 3 Est. Patient 16:26:13 CDT Mitch luis [facility] Procedures Code Procedure Name Date Entry Date Standard Desc ription CPT-JTINJ Asp/Joint Injection 18:47:02 CDT CPT-11156 Venipuncture Draw Fee 09:26:17 CDT CPT-06916 PT/INR - LAB USE ONLY 13:32:49 FRICKER[employer] CHECKER CPT-83637 Venipuncture Draw Fee 13:32:49 FRICKERTRON CHECKER CPT-69240 PT/INR - LAB USE ONLY 10:34:49 FRICKERTRON CHECKER CPT-03543 Venipuncture Draw Fee 10:34:48 FRICKERTRON CHECKER CPT-94270 PT/INR - LAB USE ONLY 09:22:03 FRICKER[employer]ON CHECKER CPT-94090 Venipuncture Draw Fee 09:22:02 FRICKERTRON CHECKER CPT-27454 Hemoccult IFOBT - LAB USE ONLY 10:27:22 CDT CPT-69335 Venipuncture Draw Fee 08:27:08 CDT CPT-20782 Liver Profile - LAB USE ONLY 08:27:07 CDT 2 CPT-11703 Microalbumin - LAB USE ONLY 08:27:07 CDT 20 25/05/09 CPT-28848 PT/INR - LAB USE ONLY 08:27:07 CDT CPT-17311 HGBA1C - LAB USE ONLY 08:27:07 CDT CPT-09299 CBC - LAB USE ONLY 08:27:07 CDT CPT-52953 Venipuncture Draw Fee 11:09:14 CDT CPT-99795 Venipuncture Draw Fee 08:32:21 FRICKER[employer] CHECKER CPT-07938 Venipuncture Draw Fee 09:38:56 FRICKER[employer]ON CHECKER CPT-31883 No Charge Offi Visit 21:36:07 CDT 1 CPT-38472 Venipuncture Draw Fee 10:13:28 FRICKERTR[employer] CHECKER CPT-01047 Venipuncture Draw Fee 08:31:11 CDT CPT-96808 Aspir/Inject Med Joint 18:17:28 CDT CPT-03748 Venipuncture Draw Fee 10:13:30 CDT CPT-24838 Venipuncture Draw Fee 08:31:43 FRICKER[employer] CHECKER CPT-JTINJ Joint Injection 18:34:50 CDT CPT-03796 Knee 3V 12:25:09 CDT CPT-25376 Venipuncture Draw Fee 12:15:57 CDT CPT-060 Medical Surveillance Exam 21:31:43 CDT 2011 CPT-85020 Venipuncture Draw Fee 08:32:05 FRICKERTR[employer] CHECKER CPT-OV Office Visit 18:19:06 CDT
--- OUTSIDE RECORDS SUMMARY | 2020-01-18 13:34 | XMS REPORT | Clinical Summary ---
Author Author Admin, Mitch Leon Organization [facility] deskwolf Address Unknown Phone Unavailable Allergies, Adverse Reactions, [...] 1/2 tab po q day ERICKA BARBA 83240056445 Active Renee Oconnor LPN Active FAMOTIDINE 20 MG ORAL TABLET by mouth twice a day 2017 FAMOTIDINE 17692393386 No Longer Active Mitch Urbina DO Active COLCRYS 0.6 MG ORAL TABLET 1 tab qid prn gout C OLCHICINE 75427903755 No Longer Active Mitch Urbina DO Active GLIMEPIRIDE 2 MG ORAL TABLET 1 po BID GLIMEPIRID E 66132260998 Active Renee Oconnor LPN Active KEFLEX 500 MG ORAL CAPSULE 1 po qid CEPHALEXI N 18870240762 No Longer Active Mitch Urbina DO Active LOSARTAN POTASSIUM 100 MG ORAL TABLET 1 pill by mouth daily, for blood pressure LOSARTAN POTASSIUM 58254675060 Active Renee Oconnor LPN Active AMLODIPINE BESYLATE 5 MG ORAL TABLET 1 tablet by mouth daily 201 01/20/04 AMLODIPINE BESYLATE 91227117281 No Longer Active Joe fulton APRN Active MITIGARE 0.6 MG ORAL CAPSULE 2 capsules at onset of go ut pain, then take one capsule at 1 hour if symptoms persist. COLCHICINE 59 251636502 Active Mitch Urbina DO Active COUMADIN 1 MG ORAL TABLET 2 tabs orally daily with the 5mg tab to equal 7mg daily WARFARIN SODIUM 92170507984 Active Mitch Urbina DO Active INVOKANA 100 MG ORAL TABLET 1 tablet orally daily CANAGLIFLOZIN 42655741119 Active Curly Coker MD Active MINOXIDIL 2.5 MG ORAL TABLET 1 tablet daily for high blood press ure MINOXIDIL 12274486165 Active Renee Oconnor LPN Active MECLIZINE HCL 25 MG ORAL TABLET 1 po tid 3 days, then 1/2 ta b tid 3 days MECLIZINE HCL 28905205436 No Longer Active Corey SEGURA Active ALLOPURINOL 300 MG ORAL TABLET Take 1 tablet by mouth daily 2012 ALLOPURINOL 61724536616 No Longer Active Corey SEGURA Active CLONIDINE HCL 0.1 MG ORAL TABLET 1 po bid 7 days, then 1/2 t ab po bid 7 days CLONIDINE HCL 34680226318 No Longer Active Corey SEGURA Active COUMADIN 5 MG ORAL TABLET 1 tab PO daily WARFAR IN SODIUM 65880353926 Active Curly Coker MD Active COUMADIN 4 MG ORAL TABLET 1 tablet daily WARFAR IN SODIUM 82348638680 No Longer Active Corey SEGURA Active POLYTRIM 85792-3.1 UNIT/ML-% OPHTHALMIC SOLUTION 1 rui p in affected eye every 3 hours while awake x 7 days POLYMYXIN B-TRIMETHOP RIM 66972118287 No Longer Active Corey SEGURA Active LOSARTAN POTASSIUM-HCTZ 100-12.5 MG ORAL TABLET 1 by m outh daily for high blood pressure LOSARTAN POTASSIUM-HCTZ 10467208614 No Longer A ctive Mitch Urbina DO Active LISINOPRIL-HYDROCHLOROTHIAZIDE 20-12.5 MG ORAL TABLET 1 tab by m outh daily LISINOPRIL-HYDROCHLOROTHIAZIDE 41775877552 No Longer Active Mitch Urbina DO Active LISINOPRIL 20 MG ORAL TABLET 1 tab po at HS LIS INOPRIL 13386259622 No Longer Active Mitch Urbina DO Active COUMADIN 5 MG ORAL TABLET 1 by mouth every other day 2 WARFARIN SODIUM 16712072251 No Longer Active Mitch Urbina DO Active COUMADIN 6 MG ORAL TABLET 1 by mouth every other day 2 WARFARIN SODIUM 76770759281 No Longer Active Mitch Urbina DO Active SIMVASTATIN 40 MG ORAL TABLET 1 tab daily at bedtime SIMVASTATIN 60012784380 Active Renee Oconnor LPN Active SIMVASTATIN 20 MG ORAL TABLET 1 tab daily at bedtime 2 SIMVASTATIN 13111061752 No Longer Active Mitch Urbina DO Active LOVENOX 100 MG/ML SUBCUTANEOUS SOLUTION One injection twice a da y ENOXAPARIN SODIUM 78374725284 No Longer Active Carmine Yusuf MD Active JANUVIA 50 MG ORAL TABLET Take one by mouth daily SITAGLIPTIN PHOSPHATE 15027392889 Active Mitch Urbina DO Active JANUVIA 100 MG ORAL TABLET 1/2 by mouth every day 2011 SITAGLIPTIN PHOSPHATE 14869033307 No Longer Active Bijal Segal RN Acti ve METFORMIN HCL 500 MG ORAL TABLET 2 by mouth twice daily METFORMIN HCL 83351090157 Active Mitch Urbina DO Active COLCRYS 0.6 MG ORAL TABLET 1 po q 6 hours prn gout pain COLCHICINE 78265485616 No Longer Active Camila Reese Active LISINOPRIL 5 MG ORAL TABLET 1 by mouth every day 11/17 LISINOPRIL 53071108594 No Longer Active Nguyenmolly Perez Active KLOR-CON 20 MEQ ORAL PACKET Take one by mouth daily 09/10/08 POTASSIUM CHLORIDE 18617964436 No Longer Active Nguyen Perez Active FUROSEMIDE 40 MG ORAL TABLET 1 by mouth daily F UROSEMIDE 60207715644 No Longer Active Nguyen Perez Active PROVIGIL 100 MG ORAL TABLET Take one by mouth daily 08/20/04 MODAFINIL 32986809348 No Longer Active Mitch Urbina DO Active BACTRIM DS 800-160 MG ORAL TABLET 1 tab by mouth twice daily 201 10/19/09 TRIMETHOPRIM-SULFAMETHOXAZOLE 75878318694 No Longer Active Elian Hays MD Active ADULT ASPIRIN LOW STRENGTH 81 MG ORAL TABLET DISINTEGR ATING 1 by mouth every daily ASPIRIN 69856992835 Active Mitch Urbina DO Ac tive METOPROLOL TARTRATE 50 MG ORAL TABLET 1 by mouth twice daily METOPROLOL TARTRATE 16227674451 Active Mitch Urbina DO Active BACTRIM DS 800-160 MG ORAL TABLET 1 tab by mouth twice daily 201 10/19/09 BACTRIM DS 800-160 MG ORAL TABLET 439685 TRIMETHOPRIM-SULFAMETHOXAZOLE Inactive PROVIGIL 100 MG ORAL TABLET Take one by mouth daily 08/20/04 PROVIGIL 100 MG ORAL TABLET 191861 MODAFINIL Inactive FUROSEMIDE 40 MG ORAL TABLET 1 by mouth daily FUROSEMIDE 40 MG ORAL TABLET 524178 FUROSEMIDE Inactive KLOR-CON 20 MEQ ORAL PACKET Take one by mouth daily 09/10/08 KLOR- CON 20 MEQ ORAL PACKET 6571753 POTASSIUM CHLORIDE Inactive LISINOPRIL 5 MG ORAL TABLET 1 by mouth every day 11/17 LISINOPRIL 5 MG ORAL TABLET 009968 LISINOPRIL Inactive COLCRYS 0.6 MG ORAL TABLET 1 po q 6 hours prn gout pain COLCRYS 0.6 MG ORAL TABLET 860877 COLCHICINE Inactive JANUVIA 100 MG ORAL TABLET 1/2 by mouth every day 2011 JANUVIA 100 MG ORAL TABLET SITAGLIPTIN PHOSPHATE Inactive SIMVASTATIN 20 MG ORAL TABLET 1 tab daily at bedtime 2 SIMVASTATIN 20 MG ORAL TABLET 156238 SIMVASTATIN Inactive COUMADIN 6 MG ORAL TABLET 1 by mouth every other day COUMADIN 6 MG ORAL TABLET 856654 WARFARIN SODIUM Inactive COUMADIN 5 MG ORAL TABLET 1 by mouth every other day 2 COUMADIN 5 MG ORAL TABLET 145344 WARFARIN SODIUM Inactive LISINOPRIL 20 MG ORAL TABLET 1 tab po at HS LISINOPRIL 20 MG ORAL TABLET 027440 LISINOPRIL Inactive LISINOPRIL-HYDROCHLOROTHIAZIDE 20-12.5 MG ORAL TABLET 1 tab by m outh daily LISINOPRIL-HYDROCHLOROTHIAZIDE 20-12.5 MG ORAL TABLET 469021 LISINOPRIL-HYDROCHLOROTHIAZIDE Inactive POLYTRIM 52845-8.1 UNIT/ML-% OPHTHALMIC SOLUTION 1 rui p in affected eye every 3 hours while awake x 7 days POLYTRIM 1000 0-0.1 UNIT/ML-% OPHTHALMIC SOLUTION 305224 POLYMYXIN B-TRIMETHOPRIM Inactive COUMADIN 4 MG ORAL TABLET 1 tablet daily COUMADIN 4 MG ORAL TABLET 427720 WARFARIN SODIUM Inactive CLONIDINE HCL 0.1 MG ORAL TABLET 1 po bid 7 days, then 1/2 t ab po bid 7 days CLONIDINE HCL 0.1 MG ORAL TABLET 362421 CLONIDIN E HCL Inactive ALLOPURINOL 300 MG ORAL TABLET Take 1 tablet by mouth daily 2012 ALLOPURINOL 300 MG ORAL TABLET 890744 ALLOPURINOL I nactive MECLIZINE HCL 25 MG ORAL TABLET 1 po tid 3 days, then 1/2 ta b tid 3 days MECLIZINE HCL 25 MG ORAL TABLET 976944 MECLIZINE HCL Inactive AMLODIPINE BESYLATE 5 MG ORAL TABLET 1 tablet by mouth daily 201 01/20/04 AMLODIPINE BESYLATE 5 MG ORAL TABLET 154318 AMLODIPINE BESYLATE Inactive KEFLEX 500 MG ORAL CAPSULE 1 po qid K EFLEX 500 MG ORAL CAPSULE 868918 CEPHALEXIN Inactive COLCRYS 0.6 MG ORAL TABLET 1 tab qid prn gout COLCRYS 0.6 MG ORAL TABLET 565898 COLCHICINE Inactive FAMOTIDINE 20 MG ORAL TABLET by mouth twice a day 2017 FAMOTIDINE 20 MG ORAL TABLET 906890 FAMOTIDINE Inactive LOVENOX 100 MG/ML SUBCUTANEOUS SOLUTION One injection twice a da y LOVENOX 100 MG/ML SUBCUTANEOUS SOLUTION 611861 ENOXAPAR IN SODIUM Inactive Vital Signs Date [...] Lab Report: CBC, MICROALB/CREAT W/RATIO - Hematology erythrocyte (RBC) count 4.96 10^6/MM^3 10*6/mm3 4.50-6.5 0 hemoglobin, blood 14.2 g/dL 14.0-18.0 hematocrit, blood 43.3 % 40.0-54.0 mean corpuscular volume, RBC 87 fL 80-97 mean corpuscular hemoglobin, RBC 28.6 pg 27. 0-31.2 leukocyte count, blood 6.4 10^3/MM^3 10*3/mm3 4.6-10.2 mean corpuscular hemoglobin concentration, RBC 32.7 G/DL % 31.8-35.4 red blood cell distribution width 16.2 % 11 .6-14.8 platelet count 238 10^3/MM^3 10*3/mm3 142-424 Lab Report: CBC, MICROALB/CREAT W/RATIO - Lab microalbumin, urine 30 mg/L 0-19 Lab Report: Lipid Panel, HEPATIC PANEL, HGBA1C - Chemistry alanine aminotransferase (SGPT), serum 30 U/L 12-78 bilirubin, serum, total 0.80 mg/dL 0.00-1.00 hemoglobin A1C, blood, as % of total hemoglobin 6.4 % 4.3-6.0 aspartate aminotransferase (SGOT), serum 22 U/L 15-37 LDL cholesterol, serum 46 mg/dL 0-130 HDL cholesterol, serum 41 mg/dL 32-60 triglyceride, serum, fasting 247 mg/dL 30-200 cholesterol, serum 136 mg/dL 130-200 Encounters Code Encounter Date Provider Facility CPT-65880 Level 3 Est. Patient 18:25:53 CDT [facility] CPT-89633 Level 3 Est. Patient 19:43:34 CDT [facility] CPT-45923 Level 4 Est. Patient 09:30:18 CDT Mitch [facility]ell[facility] CPT-30695 Level 3 Est. Patient 15:10:14 CDT Joe Gomez anh [facility] CPT-72672 Level 3 Est. Patient 15:03:46 CDT Joe Jason kamara [facility] CPT-77461 Level 3 Est. Patient 14:21:06 CDT Mitch [facility]ell[facility] CPT-01340 Level 3 Est. Patient 14:52:06 CDT Joe Jason kamara [facility] CPT-72962 Level 3 Est. Patient 09:34:30 [employer] [facility] CPT-43784 Level 3 Est. Patient 09:37:15 CDT [facility] CPT-59560 Level 3 Est. Patient 17:01:00 [employer] Mitch luis [facility] CPT-01903 Level 3 Est. Patient 13:53:19 [employer] Mitch luis [facility] CPT-14113 Level 3 Est. Patient 19:19:37 [employer] Mitch luis [facility] CPT-85578 Level 3 Est. Patient 13:25:53 [employer] Tavo toure MD [facility] CPT-55896 Level 3 Est. Patient 18:17:28 CDT Mitch luis [facility] CPT-31909 Level 3 Est. Patient 15:22:57 CDT Mitch [facility] CPT-90599 Level 3 Est. Patient 18:21:50 CDT [facility] CPT-18240 Level 3 Est. Patient 18:20:38 CDT [facility] CPT-67067 Level 3 Est. Patient 15:37:55 CDT Mitch luis [facility] CPT-31477 Level 2 Est. Patient 15:54:44 CDT Carmine benton MD [facility] CPT-55715 Level 3 Est. Patient 21:46:01 [employer] Mitch luis [facility] CPT-12076 Level 3 Est. Patient 22:15:50 CDT Mitch luis [facility] CPT-64893 Level 3 Est. Patient 10:48:15 CDT Mitch luis [facility] CPT-32860 Level 3 Est. Patient 23:20:57 CDT Tavo toure MD [facility] CPT-69298 Level 3 Est. Patient 16:26:13 CDT Mitch luis [facility] Procedures Code Procedure Name Date Entry Date Standard Desc ription CPT-JTINJ Asp/Joint Injection 18:47:02 CDT CPT-81561 Venipuncture Draw Fee 09:26:17 CDT CPT-34709 PT/INR - LAB USE ONLY 13:32:49 [employer] CPT-22748 Venipuncture Draw Fee 13:32:49 [employer] CPT-85207 PT/INR - LAB USE ONLY 10:34:49 [employer] CPT-34769 Venipuncture Draw Fee 10:34:48 [employer] CPT-40146 PT/INR - LAB USE ONLY 09:22:03 [employer] CPT-16777 Venipuncture Draw Fee 09:22:02 [employer] CPT-22411 Hemoccult IFOBT - LAB USE ONLY 10:27:22 CDT CPT-42953 Venipuncture Draw Fee 08:27:08 CDT CPT-77995 Liver Profile - LAB USE ONLY 08:27:07 CDT 2 CPT-76111 Microalbumin - LAB USE ONLY 08:27:07 CDT 20 25/05/09 CPT-11764 PT/INR - LAB USE ONLY 08:27:07 CDT CPT-31226 HGBA1C - LAB USE ONLY 08:27:07 CDT CPT-63392 CBC - LAB USE ONLY 08:27:07 CDT CPT-95512 Venipuncture Draw Fee 11:09:14 CDT CPT-33579 Venipuncture Draw Fee 08:32:21 [employer] CPT-65365 Venipuncture Draw Fee 09:38:56 [employer] CPT-00220 No Charge Offi Visit 21:36:07 CDT 1 CPT-50017 Venipuncture Draw Fee 10:13:28 [employer] CPT-58885 Venipuncture Draw Fee 08:31:11 CDT CPT-50037 Aspir/Inject Med Joint 18:17:28 CDT CPT-58941 Venipuncture Draw Fee 10:13:30 CDT CPT-82704 Venipuncture Draw Fee 08:31:43 [employer] CPT-JTINJ Joint Injection 18:34:50 CDT CPT-63734 Knee 3V 12:25:09 CDT CPT-64978 Venipuncture Draw Fee 12:15:57 CDT CPT-060 Medical Surveillance Exam 21:31:43 CDT 2011 CPT-06596 Venipuncture Draw Fee 08:32:05 [employer] CPT-OV Office Visit 18:19:06 CDT
--- OUTSIDE RECORDS SUMMARY | 2020-01-18 13:34 | XMS REPORT | Clinical Summary ---
Author Author Admin, Mitch Leon Organization [facility] Address Unknown Phone Unavailable Allergies, Adverse Reactions, [...] Coronary atherosclerosis of unspecified type of vessel, lower [place] or graft EDEMA 782.3 Resolved Mitch [...] 1/2 tab po q day ERICKA BARBA 73137049705 Active Renee Oconnor LPN Active FAMOTIDINE 20 MG ORAL TABLET by mouth twice a day 2017 FAMOTIDINE 49097286249 No Longer Active Mitch Urbina DO Active COLCRYS 0.6 MG ORAL TABLET 1 tab qid prn gout C OLCHICINE 55155931709 No Longer Active Mitch Urbina DO Active GLIMEPIRIDE 2 MG ORAL TABLET 1 po BID GLIMEPIRID E 96058226229 Active Renee Oconnor LPN Active KEFLEX 500 MG ORAL CAPSULE 1 po qid CEPHALEXI N 73939319623 No Longer Active Mitch Urbina DO Active LOSARTAN POTASSIUM 100 MG ORAL TABLET 1 pill by mouth daily, for blood pressure LOSARTAN POTASSIUM 10828267498 Active Mitch Urbina DO Active AMLODIPINE BESYLATE 5 MG ORAL TABLET 1 tablet by mouth daily 201 01/20/04 AMLODIPINE BESYLATE 92573004801 No Longer Active Joe fulton APRN Active MITIGARE 0.6 MG ORAL CAPSULE 2 capsules at onset of go ut pain, then take one capsule at 1 hour if symptoms persist. COLCHICINE 59 321996864 Active Mitch Urbina DO Active COUMADIN 1 MG ORAL TABLET 2 tabs orally daily with the 5mg tab to equal 7mg daily WARFARIN SODIUM 63722062439 Active Mitch Urbina DO Active INVOKANA 100 MG ORAL TABLET 1 tablet orally daily CANAGLIFLOZIN 73184812946 Active Curly Coker MD Active MINOXIDIL 2.5 MG ORAL TABLET 1 tablet daily for high blood press ure MINOXIDIL 91285488291 Active Renee Oconnor LPN Active MECLIZINE HCL 25 MG ORAL TABLET 1 po tid 3 days, then 1/2 ta b tid 3 days MECLIZINE HCL 61938296210 No Longer Active Corey SEGURA Active ALLOPURINOL 300 MG ORAL TABLET Take 1 tablet by mouth daily 2012 ALLOPURINOL 62475885545 No Longer Active Corey SEGURA Active CLONIDINE HCL 0.1 MG ORAL TABLET 1 po bid 7 days, then 1/2 t ab po bid 7 days CLONIDINE HCL 97226130757 No Longer Active Corey SEGURA Active COUMADIN 5 MG ORAL TABLET 1 tab PO daily WARFAR IN SODIUM 72402093574 Active Curly Coker MD Active COUMADIN 4 MG ORAL TABLET 1 tablet daily WARFAR IN SODIUM 05503787889 No Longer Active Corey SEGURA Active POLYTRIM 10506-6.1 UNIT/ML-% OPHTHALMIC SOLUTION 1 rui p in affected eye every 3 hours while awake x 7 days POLYMYXIN B-TRIMETHOP RIM 45469961882 No Longer Active Corey SEGURA Active LOSARTAN POTASSIUM-HCTZ 100-12.5 MG ORAL TABLET 1 by m outh daily for high blood pressure LOSARTAN POTASSIUM-HCTZ 44947589672 No Longer A ctive Mitch Urbina DO Active LISINOPRIL-HYDROCHLOROTHIAZIDE 20-12.5 MG ORAL TABLET 1 tab by m outh daily LISINOPRIL-HYDROCHLOROTHIAZIDE 84538275536 No Longer Active Mitch Urbina DO Active LISINOPRIL 20 MG ORAL TABLET 1 tab po at HS LIS INOPRIL 87283606547 No Longer Active Mitch Urbina DO Active COUMADIN 5 MG ORAL TABLET 1 by mouth every other day 2 WARFARIN SODIUM 94876154747 No Longer Active Mitch Urbina DO Active COUMADIN 6 MG ORAL TABLET 1 by mouth every other day 2 WARFARIN SODIUM 11616052289 No Longer Active Mitch Urbina DO Active SIMVASTATIN 40 MG ORAL TABLET 1 tab daily at bedtime SIMVASTATIN 07771055625 Active Renee Oconnor LPN Active SIMVASTATIN 20 MG ORAL TABLET 1 tab daily at bedtime 2 SIMVASTATIN 51005340803 No Longer Active Mitch Urbina DO Active LOVENOX 100 MG/ML SUBCUTANEOUS SOLUTION One injection twice a da y ENOXAPARIN SODIUM 21674751485 No Longer Active Carmine Yusuf MD Active JANUVIA 50 MG ORAL TABLET Take one by mouth daily SITAGLIPTIN PHOSPHATE 05199025694 Active Mitch Urbina DO Active JANUVIA 100 MG ORAL TABLET 1/2 by mouth every day 2011 SITAGLIPTIN PHOSPHATE 51464093403 No Longer Active Bijal Segal RN Acti ve METFORMIN HCL 500 MG ORAL TABLET 2 by mouth twice daily METFORMIN HCL 78607848747 Active Mitch Urbina DO Active COLCRYS 0.6 MG ORAL TABLET 1 po q 6 hours prn gout pain COLCHICINE 69152629971 No Longer Active Camila Reese Active LISINOPRIL 5 MG ORAL TABLET 1 by mouth every day 11/17 LISINOPRIL 31585329092 No Longer Active Nguyen Perez Active KLOR-CON 20 MEQ ORAL PACKET Take one by mouth daily 09/10/08 POTASSIUM CHLORIDE 41884169769 No Longer Active Nguyen Perez Active FUROSEMIDE 40 MG ORAL TABLET 1 by mouth daily F UROSEMIDE 36647173848 No Longer Active Nguyen Perez Active PROVIGIL 100 MG ORAL TABLET Take one by mouth daily 08/20/04 MODAFINIL 89424844245 No Longer Active Mitch Urbina DO Active BACTRIM DS 800-160 MG ORAL TABLET 1 tab by mouth twice daily 201 10/19/09 TRIMETHOPRIM-SULFAMETHOXAZOLE 14056457575 No Longer Active Elian Hays MD Active ADULT ASPIRIN LOW STRENGTH 81 MG ORAL TABLET DISINTEGR ATING 1 by mouth every daily ASPIRIN 68343244664 Active Mitch Urbina DO Ac tive METOPROLOL TARTRATE 50 MG ORAL TABLET 1 by mouth twice daily METOPROLOL TARTRATE 43757667106 Active Mitch Urbina DO Active BACTRIM DS 800-160 MG ORAL TABLET 1 tab by mouth twice daily 201 10/19/09 BACTRIM DS 800-160 MG ORAL TABLET 474576 TRIMETHOPRIM-SULFAMETHOXAZOLE Inactive PROVIGIL 100 MG ORAL TABLET Take one by mouth daily 20 08/20/04 PROVIGIL 100 MG ORAL TABLET 935639 MODAFINIL Inactive FUROSEMIDE 40 MG ORAL TABLET 1 by mouth daily FUROSEMIDE 40 MG ORAL TABLET 386790 FUROSEMIDE Inactive KLOR-CON 20 MEQ ORAL PACKET Take one by mouth daily 09/10/08 KLOR- CON 20 MEQ ORAL PACKET 9526873 POTASSIUM CHLORIDE Inactive LISINOPRIL 5 MG ORAL TABLET 1 by mouth every day 11/17 LISINOPRIL 5 MG ORAL TABLET 557099 LISINOPRIL Inactive COLCRYS 0.6 MG ORAL TABLET 1 po q 6 hours prn gout pain COLCRYS 0.6 MG ORAL TABLET 386489 COLCHICINE Inactive JANUVIA 100 MG ORAL TABLET 1/2 by mouth every day 2011 JANUVIA 100 MG ORAL TABLET SITAGLIPTIN PHOSPHATE Inactive SIMVASTATIN 20 MG ORAL TABLET 1 tab daily at bedtime 2 SIMVASTATIN 20 MG ORAL TABLET 761508 SIMVASTATIN Inactive COUMADIN 6 MG ORAL TABLET 1 by mouth every other day COUMADIN 6 MG ORAL TABLET 349317 WARFARIN SODIUM Inactive COUMADIN 5 MG ORAL TABLET 1 by mouth every other day COUMADIN 5 MG ORAL TABLET 426458 WARFARIN SODIUM Inactive LISINOPRIL 20 MG ORAL TABLET 1 tab po at HS LISINOPRIL 20 MG ORAL TABLET 860627 LISINOPRIL Inactive LISINOPRIL-HYDROCHLOROTHIAZIDE 20-12.5 MG ORAL TABLET 1 tab by m outh daily LISINOPRIL-HYDROCHLOROTHIAZIDE 20-12.5 MG ORAL TABLET 475535 LISINOPRIL-HYDROCHLOROTHIAZIDE Inactive POLYTRIM 73281-1.1 UNIT/ML-% OPHTHALMIC SOLUTION 1 rui p in affected eye every 3 hours while awake x 7 days POLYTRIM 1000 0-0.1 UNIT/ML-% OPHTHALMIC SOLUTION 878098 POLYMYXIN B-TRIMETHOPRIM Inactive COUMADIN 4 MG ORAL TABLET 1 tablet daily COUMADIN 4 MG ORAL TABLET 383743 WARFARIN SODIUM Inactive CLONIDINE HCL 0.1 MG ORAL TABLET 1 po bid 7 days, then 2 t ab po bid 7 days CLONIDINE HCL 0.1 MG ORAL TABLET 354022 CLONIDIN E HCL Inactive ALLOPURINOL 300 MG ORAL TABLET Take 1 tablet by mouth daily 2012 ALLOPURINOL 300 MG ORAL TABLET 727723 ALLOPURINOL I nactive MECLIZINE HCL 25 MG ORAL TABLET 1 po tid 3 days, then 1/2 ta b tid 3 days MECLIZINE HCL 25 MG ORAL TABLET 167471 MECLIZINE HCL Inactive AMLODIPINE BESYLATE 5 MG ORAL TABLET 1 tablet by mouth daily 201 01/20/04 AMLODIPINE BESYLATE 5 MG ORAL TABLET 865943 AMLODIPINE BESYLATE Inactive KEFLEX 500 MG ORAL CAPSULE 1 po qid K EFLEX 500 MG ORAL CAPSULE 691307 CEPHALEXIN Inactive COLCRYS 0.6 MG ORAL TABLET 1 tab qid prn gout COLCRYS 0.6 MG ORAL TABLET 682074 COLCHICINE Inactive FAMOTIDINE 20 MG ORAL TABLET by mouth twice a day 2017 FAMOTIDINE 20 MG ORAL TABLET 318113 FAMOTIDINE Inactive LOVENOX 100 MG/ML SUBCUTANEOUS SOLUTION One injection twice a da y LOVENOX 100 MG/ML SUBCUTANEOUS SOLUTION 956882 ENOXAPAR IN SODIUM Inactive Vital Signs Date [...] HGBA1C - Chemistry cholesterol, serum 136 mg/dL 907-069 6378/12/06 triglyceride, serum, fasting 247 mg/dL 30-200 HDL cholesterol, serum 41 mg/dL 32-60 LDL cholesterol, serum 46 mg/dL 0-130 aspartate aminotransferase (SGOT), serum 22 U/L 15-37 alanine aminotransferase (SGPT), serum 30 U/L 12-78 bilirubin, serum, total 0.80 mg/dL 0.00-1.00 hemoglobin A1C, blood, as % of total hemoglobin 6.4 % 4.3-6.0 Encounters Code Encounter Date Provider Facility CPT-66575 Level 3 Est. Patient 18:25:53 CDT Mitch luis [facility] CPT-89502 Level 3 Est. Patient 19:43:34 CDT Mitch luis [facility] CPT-31363 Level 4 Est. Patient 09:30:18 CDT Mitch luis [facility] CPT-48519 Level 3 Est. Patient 15:10:14 [facility] CPT-65746 Level 3 Est. Patient 15:03:46 CDT Joe Jason kamara [facility] CPT-03711 Level 3 Est. Patient 14:21:06 CDT Micth Castellano janelle [facility] CPT-24264 Level 3 Est. Patient 14:52:06 CDT Joe Jason kamara [facility] CPT-18490 Level 3 Est. Patient 09:34:30 PRODUCTION ANALYST Mitch luis [facility] CPT-27376 Level 3 Est. Patient 09:37:15 CDT Mitch luis [facility] CPT-32108 Level 3 Est. Patient 17:01:00 PRODUCTION ANALYST Mitch luis [facility] CPT-64337 Level 3 Est. Patient 13:53:19 PRODUCTION ANALYST Mitch luis [facility] CPT-46582 Level 3 Est. Patient 19:19:37 PRODUCTION ANALYST Mitch luis [facility] CPT-79799 Level 3 Est. Patient 13:25:53 PRODUCTION ANALYST Tavo toure MD [facility] CPT-16844 Level 3 Est. Patient 18:17:28 CDT Mitch luis [facility] CPT-59680 Level 3 Est. Patient 15:22:57 CDT Mitch luis [facility] CPT-69153 Level 3 Est. Patient 18:21:50 CDT Mitch luis [facility] CPT-79393 Level 3 Est. Patient 18:20:38 CDT Mitch luis [facility] CPT-87105 Level 3 Est. Patient 15:37:55 CDT Mitch luis [facility] CPT-01961 Level 2 Est. Patient 15:54:44 CDT Carmine benton MD [facility] CPT-15148 Level 3 Est. Patient 21:46:01 PRODUCTION ANALYST Mitch luis [facility] CPT-20674 Level 3 Est. Patient 22:15:50 CDT Mitch luis [facility] CPT-66765 Level 3 Est. Patient 10:48:15 CDT iMtch luis [facility] CPT-91806 Level 3 Est. Patient 23:20:57 CDT Tavo toure MD [facility] CPT-44616 Level 3 Est. Patient 16:26:13 CDT Mitch luis [facility] Procedures Code Procedure Name Date Entry Date Standard Desc ription CPT-JTINJ Asp/Joint Injection 18:47:02 CDT CPT-67576 Venipuncture Draw Fee 09:26:17 CDT CPT-39192 PT/INR - LAB USE ONLY 13:32:49 PRODUCTION ANALYST CPT-81317 Venipuncture Draw Fee 13:32:49 PRODUCTION ANALYST CPT-99754 PT/INR - LAB USE ONLY 10:34:49 PRODUCTION ANALYST CPT-47167 Venipuncture Draw Fee 10:34:48 PRODUCTION ANALYST CPT-59181 PT/INR - LAB USE ONLY 09:22:03 PRODUCTION ANALYST CPT-15212 Venipuncture Draw Fee 09:22:02 PRODUCTION ANALYST CPT-80808 Hemoccult IFOBT - LAB USE ONLY 10:27:22 CDT CPT-53928 Venipuncture Draw Fee 08:27:08 CDT CPT-96408 Liver Profile - LAB USE ONLY 08:27:07 CDT 2 CPT-27079 Microalbumin - LAB USE ONLY 08:27:07 CDT 20 25/05/09 CPT-60692 PT/INR - LAB USE ONLY 08:27:07 CDT CPT-78699 HGBA1C - LAB USE ONLY 08:27:07 CDT CPT-22695 CBC - LAB USE ONLY 08:27:07 CDT CPT-69045 Venipuncture Draw Fee 11:09:14 CDT CPT-03692 Venipuncture Draw Fee 08:32:21 PRODUCTION ANALYST CPT-49429 Venipuncture Draw Fee 09:38:56 PRODUCTION ANALYST CPT-33268 No Charge Offi Visit 21:36:07 CDT 1 CPT-98852 Venipuncture Draw Fee 10:13:28 PRODUCTION ANALYST CPT-06430 Venipuncture Draw Fee 08:31:11 CDT CPT-74635 Aspir/Inject Med Joint 18:17:28 CDT CPT-57731 Venipuncture Draw Fee 10:13:30 CDT CPT-15816 Venipuncture Draw Fee 08:31:43 PRODUCTION ANALYST CPT-JTINJ Joint Injection 18:34:50 CDT CPT-00228 Knee 3V 12:25:09 CDT CPT-05471 Venipuncture Draw Fee 12:15:57 CDT CPT-060 Medical Surveillance Exam 21:31:43 CDT 2011 CPT-96957 Venipuncture Draw Fee 08:32:05 PRODUCTION ANALYST CPT-OV Office Visit 18:19:06 CDT
--- OUTSIDE RECORDS SUMMARY | 2020-01-18 13:34 | XMS REPORT | Clinical Summary ---
Author Author Admin, Mitch Leon Organization [facility] Address Unknown Phone Unavailable Allergies, Adverse Reactions, [...] Coronary atherosclerosis of unspecified type of vessel, [place] or graft EDEMA 782.3 Resolved Mitch Urbina [...] 1/2 tab po q day ERICKA BARBA 66371234234 Active Renee Oconnor LPN Active FAMOTIDINE 20 MG ORAL TABLET by mouth twice a day 2017 FAMOTIDINE 56476164281 No Longer Active Mitch Urbina DO Active COLCRYS 0.6 MG ORAL TABLET 1 tab qid prn gout C OLCHICINE 34792604272 No Longer Active Mitch Uribna DO Active GLIMEPIRIDE 2 MG ORAL TABLET 1 po BID GLIMEPIRID E 06788794505 Active Renee Oconnor LPN Active KEFLEX 500 MG ORAL CAPSULE 1 po qid CEPHALEXI N 32105103258 No Longer Active Mitch Urbina DO Active LOSARTAN POTASSIUM 100 MG ORAL TABLET 1 pill by mouth daily, for blood pressure LOSARTAN POTASSIUM 36524558614 Active Mitch Urbina DO Active AMLODIPINE BESYLATE 5 MG ORAL TABLET 1 tablet by mouth daily 201 01/20/04 AMLODIPINE BESYLATE 73043799589 No Longer Active Joe fulton APRN Active MITIGARE 0.6 MG ORAL CAPSULE 2 capsules at onset of go ut pain, then take one capsule at 1 hour if symptoms persist. COLCHICINE 59 140592282 Active Mitch Urbina DO Active COUMADIN 1 MG ORAL TABLET 2 tabs orally daily with the 5mg tab to equal 7mg daily WARFARIN SODIUM 40605379317 Active Mitch Urbina DO Active INVOKANA 100 MG ORAL TABLET 1 tablet orally daily CANAGLIFLOZIN 64158002996 Active Curly Coker MD Active MINOXIDIL 2.5 MG ORAL TABLET 1 tablet daily for high blood press ure MINOXIDIL 34685657160 Active Renee Oconnor LPN Active MECLIZINE HCL 25 MG ORAL TABLET 1 po tid 3 days, then 1/2 ta b tid 3 days MECLIZINE HCL 63271411782 No Longer Active Corey SEGURA Active ALLOPURINOL 300 MG ORAL TABLET Take 1 tablet by mouth daily 2012 ALLOPURINOL 08136074895 No Longer Active Corey SEGURA Active CLONIDINE HCL 0.1 MG ORAL TABLET 1 po bid 7 days, then 1/2 t ab po bid 7 days CLONIDINE HCL 93931557545 No Longer Active Corey SEGURA Active COUMADIN 5 MG ORAL TABLET 1 tab PO daily WARFAR IN SODIUM 30940353905 Active Curly Coker MD Active COUMADIN 4 MG ORAL TABLET 1 tablet daily WARFAR IN SODIUM 32308487009 No Longer Active Corey SEGURA Active POLYTRIM 30587-3.1 UNIT/ML-% OPHTHALMIC SOLUTION 1 rui p in affected eye every 3 hours while awake x 7 days POLYMYXIN B-TRIMETHOP RIM 52399689993 No Longer Active Corey SEGURA Active LOSARTAN POTASSIUM-HCTZ 100-12.5 MG ORAL TABLET 1 by m outh daily for high blood pressure LOSARTAN POTASSIUM-HCTZ 29723036155 No Longer A ctive Mitch Urbina DO Active LISINOPRIL-HYDROCHLOROTHIAZIDE 20-12.5 MG ORAL TABLET 1 tab by m outh daily LISINOPRIL-HYDROCHLOROTHIAZIDE 81412643541 No Longer Active Mitch Urbina DO Active LISINOPRIL 20 MG ORAL TABLET 1 tab po at HS LIS INOPRIL 64668133985 No Longer Active Mitch Urbina DO Active COUMADIN 5 MG ORAL TABLET 1 by mouth every other day 2 WARFARIN SODIUM 30063898125 No Longer Active Mitch Urbina DO Active COUMADIN 6 MG ORAL TABLET 1 by mouth every other day 2 WARFARIN SODIUM 46213529053 No Longer Active Mitch Urbina DO Active SIMVASTATIN 40 MG ORAL TABLET 1 tab daily at bedtime SIMVASTATIN 79825761393 Active Renee Oconnor LPN Active SIMVASTATIN 20 MG ORAL TABLET 1 tab daily at bedtime 2 SIMVASTATIN 74785132495 No Longer Active Mitch Urbina DO Active LOVENOX 100 MG/ML SUBCUTANEOUS SOLUTION One injection twice a da y ENOXAPARIN SODIUM 69728401425 No Longer Active Carmine Yusuf MD Active JANUVIA 50 MG ORAL TABLET Take one by mouth daily SITAGLIPTIN PHOSPHATE 38054632236 Active Mitch Urbina DO Active JANUVIA 100 MG ORAL TABLET 1/2 by mouth every day 2011 SITAGLIPTIN PHOSPHATE 85401867603 No Longer Active Bijal Segal RN Acti ve METFORMIN HCL 500 MG ORAL TABLET 2 by mouth twice daily METFORMIN HCL 48573807702 Active Mitch Urbina DO Active COLCRYS 0.6 MG ORAL TABLET 1 po q 6 hours prn gout pain COLCHICINE 54116979610 No Longer Active Camila Reese Active LISINOPRIL 5 MG ORAL TABLET 1 by mouth every day 11/17 LISINOPRIL 85069832534 No Longer Active Nguyen Perez Active KLOR-CON 20 MEQ ORAL PACKET Take one by mouth daily 20 09/10/08 POTASSIUM CHLORIDE 10490469816 No Longer Active Nguyen Perez Active FUROSEMIDE 40 MG ORAL TABLET 1 by mouth daily F UROSEMIDE 98815733284 No Longer Active Nguyen Perez Active PROVIGIL 100 MG ORAL TABLET Take one by mouth daily 08/20/04 MODAFINIL 79316634486 No Longer Active Mitch Urbina DO Active BACTRIM DS 800-160 MG ORAL TABLET 1 tab by mouth twice daily 201 10/19/09 TRIMETHOPRIM-SULFAMETHOXAZOLE 38447580233 No Longer Active Elian Hays MD Active ADULT ASPIRIN LOW STRENGTH 81 MG ORAL TABLET DISINTEGR ATING 1 by mouth every daily ASPIRIN 44506038589 Active Mitch Urbina DO Ac tive METOPROLOL TARTRATE 50 MG ORAL TABLET 1 by mouth twice daily METOPROLOL TARTRATE 38375685963 Active Mitch Urbina DO Active BACTRIM DS 800-160 MG ORAL TABLET 1 tab by mouth twice daily 201 10/19/09 BACTRIM DS 800-160 MG ORAL TABLET 219614 TRIMETHOPRIM-SULFAMETHOXAZOLE Inactive PROVIGIL 100 MG ORAL TABLET Take one by mouth daily 20 08/20/04 PROVIGIL 100 MG ORAL TABLET 672396 MODAFINIL Inactive FUROSEMIDE 40 MG ORAL TABLET 1 by mouth daily FUROSEMIDE 40 MG ORAL TABLET 642884 FUROSEMIDE Inactive KLOR-CON 20 MEQ ORAL PACKET Take one by mouth daily 09/10/08 KLOR- CON 20 MEQ ORAL PACKET 8864217 POTASSIUM CHLORIDE Inactive LISINOPRIL 5 MG ORAL TABLET 1 by mouth every day 11/17 LISINOPRIL 5 MG ORAL TABLET 418814 LISINOPRIL Inactive COLCRYS 0.6 MG ORAL TABLET 1 po q 6 hours prn gout pain COLCRYS 0.6 MG ORAL TABLET 761072 COLCHICINE Inactive JANUVIA 100 MG ORAL TABLET 1/2 by mouth every day 2011 JANUVIA 100 MG ORAL TABLET SITAGLIPTIN PHOSPHATE Inactive SIMVASTATIN 20 MG ORAL TABLET 1 tab daily at bedtime 2 SIMVASTATIN 20 MG ORAL TABLET 969327 SIMVASTATIN Inactive COUMADIN 6 MG ORAL TABLET 1 by mouth every other day COUMADIN 6 MG ORAL TABLET 361087 WARFARIN SODIUM Inactive COUMADIN 5 MG ORAL TABLET 1 by mouth every other day COUMADIN 5 MG ORAL TABLET 797858 WARFARIN SODIUM Inactive LISINOPRIL 20 MG ORAL TABLET 1 tab po at HS LISINOPRIL 20 MG ORAL TABLET 515199 LISINOPRIL Inactive LISINOPRIL-HYDROCHLOROTHIAZIDE 20-12.5 MG ORAL TABLET 1 tab by m outh daily LISINOPRIL-HYDROCHLOROTHIAZIDE 20-12.5 MG ORAL TABLET 497452 LISINOPRIL-HYDROCHLOROTHIAZIDE Inactive POLYTRIM 17290-2.1 UNIT/ML-% OPHTHALMIC SOLUTION 1 rui p in affected eye every 3 hours while awake x 7 days POLYTRIM 1000 0-0.1 UNIT/ML-% OPHTHALMIC SOLUTION 236025 POLYMYXIN B-TRIMETHOPRIM Inactive COUMADIN 4 MG ORAL TABLET 1 tablet daily COUMADIN 4 MG ORAL TABLET 657169 WARFARIN SODIUM Inactive CLONIDINE HCL 0.1 MG ORAL TABLET 1 po bid 7 days, then 1/2 t ab po bid 7 days CLONIDINE HCL 0.1 MG ORAL TABLET 364733 CLONIDIN E HCL Inactive ALLOPURINOL 300 MG ORAL TABLET Take 1 tablet by mouth daily 2012 ALLOPURINOL 300 MG ORAL TABLET 648495 ALLOPURINOL I nactive MECLIZINE HCL 25 MG ORAL TABLET 1 po tid 3 days, then 1/2 ta b tid 3 days MECLIZINE HCL 25 MG ORAL TABLET 709488 MECLIZINE HCL Inactive AMLODIPINE BESYLATE 5 MG ORAL TABLET 1 tablet by mouth daily 201 01/20/04 AMLODIPINE BESYLATE 5 MG ORAL TABLET 772469 AMLODIPINE BESYLATE Inactive KEFLEX 500 MG ORAL CAPSULE 1 po qid K EFLEX 500 MG ORAL CAPSULE 132901 CEPHALEXIN Inactive COLCRYS 0.6 MG ORAL TABLET 1 tab qid prn gout COLCRYS 0.6 MG ORAL TABLET 631759 COLCHICINE Inactive FAMOTIDINE 20 MG ORAL TABLET by mouth twice a day 2017 FAMOTIDINE 20 MG ORAL TABLET 799471 FAMOTIDINE Inactive LOVENOX 100 MG/ML SUBCUTANEOUS SOLUTION One injection twice a da y LOVENOX 100 MG/ML SUBCUTANEOUS SOLUTION 340570 ENOXAPAR IN SODIUM Inactive Vital Signs Date [...] HGBA1C - Chemistry cholesterol, serum 136 mg/dL 558-967 5249/12/06 triglyceride, serum, fasting 247 mg/dL 30-200 HDL cholesterol, serum 41 mg/dL 32-60 LDL cholesterol, serum 46 mg/dL 0-130 aspartate aminotransferase (SGOT), serum 22 U/L 15-37 alanine aminotransferase (SGPT), serum 30 U/L 12-78 bilirubin, serum, total 0.80 mg/dL 0.00-1.00 hemoglobin A1C, blood, as % of total hemoglobin 6.4 % 4.3-6.0 Encounters Code Encounter Date Provider Facility CPT-21287 Level 3 Est. Patient 18:25:53 CDT Mitch Arnol Nona janelle [facility] CPT-02249 Level 3 Est. Patient 19:43:34 CDT Mitch luis [facility] CPT-02034 Level 4 Est. Patient 09:30:18 CDT Mitch Castellano janelle [facility] CPT-62071 Level 3 Est. Patient 15:10:14 CDT Joe Jason kamara [facility] CPT-21406 Level 3 Est. Patient 15:03:46 CDT Joe Jason kamara [facility] CPT-57123 Level 3 Est. Patient 14:21:06 CDT Mitch Castellano janelle [facility] CPT-42729 Level 3 Est. Patient 14:52:06 CDT Joe Jason kamara [facility] CPT-80055 Level 3 Est. Patient 09:34:30 ANCHOR TACKER Mitch luis [facility] CPT-91737 Level 3 Est. Patient 09:37:15 CDT Mitch Castellano janelle [facility] CPT-82916 Level 3 Est. Patient 17:01:00 ANCHOR TACKER Mitch luis [facility] CPT-33913 Level 3 Est. Patient 13:53:19 ANCHOR TACKER Mitch luis [facility] CPT-53996 Level 3 Est. Patient 19:19:37 ANCHOR TACKER Mitch luis [facility] CPT-79755 Level 3 Est. Patient 13:25:53 ANCHOR TACKER Tavo toure MD [facility] CPT-24748 Level 3 Est. Patient 18:17:28 CDT Mitch luis [facility] CPT-50577 Level 3 Est. Patient 15:22:57 CDT Mitch luis [facility] CPT-68865 Level 3 Est. Patient 18:21:50 CDT Mitch luis [facility] CPT-49890 Level 3 Est. Patient 18:20:38 CDT Mitch luis [facility] CPT-13270 Level 3 Est. Patient 15:37:55 CDT Mitch luis [facility] CPT-75962 Level 2 Est. Patient 15:54:44 CDT Carmine benton MD [facility] CPT-61249 Level 3 Est. Patient 21:46:01 ANCHOR TACKER Mitch luis [facility] CPT-99493 Level 3 Est. Patient 22:15:50 CDT Mitch luis [facility] CPT-75050 Level 3 Est. Patient 10:48:15 CDT Mitch luis [facility] CPT-10252 Level 3 Est. Patient 23:20:57 CDT Tavo toure MD [facility] CPT-63723 Level 3 Est. Patient 16:26:13 CDT Mitch luis [facility] Procedures Code Procedure Name Date Entry Date Standard Desc ription CPT-JTINJ Asp/Joint Injection 18:47:02 CDT CPT-33172 Venipuncture Draw Fee 09:26:17 CDT CPT-25523 PT/INR - LAB USE ONLY 13:32:49 ANCHOR TACKER CPT-97219 Venipuncture Draw Fee 13:32:49 ANCHOR TACKER CPT-27605 PT/INR - LAB USE ONLY 10:34:49 ANCHOR TACKER CPT-75671 Venipuncture Draw Fee 10:34:48 ANCHOR TACKER CPT-81992 PT/INR - LAB USE ONLY 09:22:03 ANCHOR TACKER CPT-21828 Venipuncture Draw Fee 09:22:02 ANCHOR TACKER CPT-37813 Hemoccult IFOBT - LAB USE ONLY 10:27:22 CDT CPT-18109 Venipuncture Draw Fee 08:27:08 CDT CPT-59474 Liver Profile - LAB USE ONLY 08:27:07 CDT 2 CPT-19184 Microalbumin - LAB USE ONLY 08:27:07 CDT 20 25/05/09 CPT-33494 PT/INR - LAB USE ONLY 08:27:07 CDT CPT-94533 HGBA1C - LAB USE ONLY 08:27:07 CDT CPT-39877 CBC - LAB USE ONLY 08:27:07 CDT CPT-33617 Venipuncture Draw Fee 11:09:14 CDT CPT-06711 Venipuncture Draw Fee 08:32:21 ANCHOR TACKER CPT-60583 Venipuncture Draw Fee 09:38:56 ANCHOR TACKER CPT-91499 No Charge Offi Visit 21:36:07 CDT 1 CPT-52533 Venipuncture Draw Fee 10:13:28 ANCHOR TACKER CPT-73891 Venipuncture Draw Fee 08:31:11 CDT CPT-23849 Aspir/Inject Med Joint 18:17:28 CDT CPT-05578 Venipuncture Draw Fee 10:13:30 CDT CPT-00907 Venipuncture Draw Fee 08:31:43 ANCHOR TACKER CPT-JTINJ Joint Injection 18:34:50 CDT CPT-45431 Knee 3V 12:25:09 CDT CPT-95411 Venipuncture Draw Fee 12:15:57 CDT CPT-060 Medical Surveillance Exam 21:31:43 CDT 2011 CPT-88261 Venipuncture Draw Fee 08:32:05 ANCHOR TACKER CPT-OV Office Visit 18:19:06 CDT
--- OUTSIDE RECORDS SUMMARY | 2020-01-18 13:34 | XMS REPORT | Clinical Summary ---
Author Author Admin, Mitch Leon Organization [facility] Address Unknown Phone Unavailable Allergies, Adverse Reactions, [...] Ambrose Le e DO BRUISE ICD-924.9 Inactive Mtich W Carlitos DO OLECRANON BURSITIS, RIGHT ICD-726.33 [...] 1/2 tab po q day ERICKA BARBA 87233466930 Active Renee Oconnor LPN Active FAMOTIDINE 20 MG ORAL TABLET by mouth twice a day 2017 FAMOTIDINE 24541244663 No Longer Active Mitch Urbina DO Active COLCRYS 0.6 MG ORAL TABLET 1 tab qid prn gout C OLCHICINE 76452626274 No Longer Active Mitch Urbina DO Active GLIMEPIRIDE 2 MG ORAL TABLET 1 po BID GLIMEPIRID E 32458835036 Active Renee Oconnor LPN Active KEFLEX 500 MG ORAL CAPSULE 1 po qid CEPHALEXI N 35933839825 No Longer Active Mitch Urbina DO Active LOSARTAN POTASSIUM 100 MG ORAL TABLET 1 pill by mouth daily, for blood pressure LOSARTAN POTASSIUM 14009729943 Active Renee Oconnor LPN Active AMLODIPINE BESYLATE 5 MG ORAL TABLET 1 tablet by mouth daily 201 01/20/04 AMLODIPINE BESYLATE 84908372991 No Longer Active Jeo fulton APRN Active MITIGARE 0.6 MG ORAL CAPSULE 2 capsules at onset of go ut pain, then take one capsule at 1 hour if symptoms persist. COLCHICINE 59 694064543 Active Mitch Urbina DO Active COUMADIN 1 MG ORAL TABLET 2 tabs orally daily with the 5mg tab to equal 7mg daily WARFARIN SODIUM 22073420777 Active Mitch Urbina DO Active INVOKANA 100 MG ORAL TABLET 1 tablet orally daily CANAGLIFLOZIN 37768531944 Active Curly Coker MD Active MINOXIDIL 2.5 MG ORAL TABLET 1 tablet daily for high blood press ure MINOXIDIL 57146567414 Active Reene Oconnor LPN Active MECLIZINE HCL 25 MG ORAL TABLET 1 po tid 3 days, then 1/2 ta b tid 3 days MECLIZINE HCL 28050407064 No Longer Active Corey SEGURA Active ALLOPURINOL 300 MG ORAL TABLET Take 1 tablet by mouth daily 2012 ALLOPURINOL 65247760636 No Longer Active Corey SEGURA Active CLONIDINE HCL 0.1 MG ORAL TABLET 1 po bid 7 days, then 1/2 t ab po bid 7 days CLONIDINE HCL 55563008992 No Longer Active Corey SEGURA Active COUMADIN 5 MG ORAL TABLET 1 tab PO daily WARFAR IN SODIUM 42637312505 Active Curly Coker MD Active COUMADIN 4 MG ORAL TABLET 1 tablet daily WARFAR IN SODIUM 96489813728 No Longer Active Corey SEGURA Active POLYTRIM 16413-2.1 UNIT/ML-% OPHTHALMIC SOLUTION 1 rui p in affected eye every 3 hours while awake x 7 days POLYMYXIN B-TRIMETHOP RIM 62916900448 No Longer Active Corey SEGURA Active LOSARTAN POTASSIUM-HCTZ 100-12.5 MG ORAL TABLET 1 by m outh daily for high blood pressure LOSARTAN POTASSIUM-HCTZ 95257443251 No Longer A ctive Mitch Urbina DO Active LISINOPRIL-HYDROCHLOROTHIAZIDE 20-12.5 MG ORAL TABLET 1 tab by m outh daily LISINOPRIL-HYDROCHLOROTHIAZIDE 28653097254 No Longer Active Mitch Urbina DO Active LISINOPRIL 20 MG ORAL TABLET 1 tab po at HS LIS INOPRIL 84796096668 No Longer Active Mitch Urbina DO Active COUMADIN 5 MG ORAL TABLET 1 by mouth every other day 2 WARFARIN SODIUM 42455800396 No Longer Active Mitch Urbina DO Active COUMADIN 6 MG ORAL TABLET 1 by mouth every other day 2 WARFARIN SODIUM 30297325796 No Longer Active Mitch Urbina DO Active SIMVASTATIN 40 MG ORAL TABLET 1 tab daily at bedtime SIMVASTATIN 12993100559 Active Renee Oconnor LPN Active SIMVASTATIN 20 MG ORAL TABLET 1 tab daily at bedtime 2 SIMVASTATIN 39287380549 No Longer Active Mitch Urbina DO Active LOVENOX 100 MG/ML SUBCUTANEOUS SOLUTION One injection twice a da y ENOXAPARIN SODIUM 34840688360 No Longer Active Carmine Yusuf MD Active JANUVIA 50 MG ORAL TABLET Take one by mouth daily SITAGLIPTIN PHOSPHATE 09092650142 Active Mitch Urbina DO Active JANUVIA 100 MG ORAL TABLET 1/2 by mouth every day 2011 SITAGLIPTIN PHOSPHATE 49754422062 No Longer Active Bijal Segal RN Acti ve METFORMIN HCL 500 MG ORAL TABLET 2 by mouth twice daily METFORMIN HCL 73024172018 Active Mitch Urbina DO Active COLCRYS 0.6 MG ORAL TABLET 1 po q 6 hours prn gout pain COLCHICINE 18834246679 No Longer Active Camila Reese Active LISINOPRIL 5 MG ORAL TABLET 1 by mouth every day 11/17 LISINOPRIL 35597320590 No Longer Active Nguyenmolly Perez Active KLOR-CON 20 MEQ ORAL PACKET Take one by mouth daily 09/10/08 POTASSIUM CHLORIDE 14081768109 No Longer Active Nguyen Perez Active FUROSEMIDE 40 MG ORAL TABLET 1 by mouth daily F UROSEMIDE 87915557840 No Longer Active Nguyen Perez Active PROVIGIL 100 MG ORAL TABLET Take one by mouth daily 08/20/04 MODAFINIL 46899409347 No Longer Active Mitch Urbina DO Active BACTRIM DS 800-160 MG ORAL TABLET 1 tab by mouth twice daily 201 10/19/09 TRIMETHOPRIM-SULFAMETHOXAZOLE 77205964686 No Longer Active Elian Hays MD Active ADULT ASPIRIN LOW STRENGTH 81 MG ORAL TABLET DISINTEGR ATING 1 by mouth every daily ASPIRIN 07861410745 Active Mitch Urbina DO Ac tive METOPROLOL TARTRATE 50 MG ORAL TABLET 1 by mouth twice daily METOPROLOL TARTRATE 71564421816 Active Mitch Urbina DO Active BACTRIM DS 800-160 MG ORAL TABLET 1 tab by mouth twice daily 201 10/19/09 BACTRIM DS 800-160 MG ORAL TABLET 230899 TRIMETHOPRIM-SULFAMETHOXAZOLE Inactive PROVIGIL 100 MG ORAL TABLET Take one by mouth daily 08/20/04 PROVIGIL 100 MG ORAL TABLET 106537 MODAFINIL Inactive FUROSEMIDE 40 MG ORAL TABLET 1 by mouth daily FUROSEMIDE 40 MG ORAL TABLET 460358 FUROSEMIDE Inactive KLOR-CON 20 MEQ ORAL PACKET Take one by mouth daily 09/10/08 KLOR- CON 20 MEQ ORAL PACKET 4653900 POTASSIUM CHLORIDE Inactive LISINOPRIL 5 MG ORAL TABLET 1 by mouth every day 11/17 LISINOPRIL 5 MG ORAL TABLET 657123 LISINOPRIL Inactive COLCRYS 0.6 MG ORAL TABLET 1 po q 6 hours prn gout pain COLCRYS 0.6 MG ORAL TABLET 366338 COLCHICINE Inactive JANUVIA 100 MG ORAL TABLET 1/2 by mouth every day 2011 JANUVIA 100 MG ORAL TABLET SITAGLIPTIN PHOSPHATE Inactive SIMVASTATIN 20 MG ORAL TABLET 1 tab daily at bedtime 2 SIMVASTATIN 20 MG ORAL TABLET 819036 SIMVASTATIN Inactive COUMADIN 6 MG ORAL TABLET 1 by mouth every other day COUMADIN 6 MG ORAL TABLET 699479 WARFARIN SODIUM Inactive COUMADIN 5 MG ORAL TABLET 1 by mouth every other day 2 COUMADIN 5 MG ORAL TABLET 344284 WARFARIN SODIUM Inactive LISINOPRIL 20 MG ORAL TABLET 1 tab po at HS LISINOPRIL 20 MG ORAL TABLET 929842 LISINOPRIL Inactive LISINOPRIL-HYDROCHLOROTHIAZIDE 20-12.5 MG ORAL TABLET 1 tab by m outh daily LISINOPRIL-HYDROCHLOROTHIAZIDE 20-12.5 MG ORAL TABLET 753616 LISINOPRIL-HYDROCHLOROTHIAZIDE Inactive POLYTRIM 02426-9.1 UNIT/ML-% OPHTHALMIC SOLUTION 1 rui p in affected eye every 3 hours while awake x 7 days POLYTRIM 1000 0-0.1 UNIT/ML-% OPHTHALMIC SOLUTION 197517 POLYMYXIN B-TRIMETHOPRIM Inactive COUMADIN 4 MG ORAL TABLET 1 tablet daily COUMADIN 4 MG ORAL TABLET 229265 WARFARIN SODIUM Inactive CLONIDINE HCL 0.1 MG ORAL TABLET 1 po bid 7 days, then 1/2 t ab po bid 7 days CLONIDINE HCL 0.1 MG ORAL TABLET 609301 CLONIDIN E HCL Inactive ALLOPURINOL 300 MG ORAL TABLET Take 1 tablet by mouth daily 2012 ALLOPURINOL 300 MG ORAL TABLET 220330 ALLOPURINOL I nactive MECLIZINE HCL 25 MG ORAL TABLET 1 po tid 3 days, then 1/2 ta b tid 3 days MECLIZINE HCL 25 MG ORAL TABLET 078980 MECLIZINE HCL Inactive AMLODIPINE BESYLATE 5 MG ORAL TABLET 1 tablet by mouth daily 201 01/20/04 AMLODIPINE BESYLATE 5 MG ORAL TABLET 774718 AMLODIPINE BESYLATE Inactive KEFLEX 500 MG ORAL CAPSULE 1 po qid K EFLEX 500 MG ORAL CAPSULE 669813 CEPHALEXIN Inactive COLCRYS 0.6 MG ORAL TABLET 1 tab qid prn gout COLCRYS 0.6 MG ORAL TABLET 865182 COLCHICINE Inactive FAMOTIDINE 20 MG ORAL TABLET by mouth twice a day 2017 FAMOTIDINE 20 MG ORAL TABLET 164037 FAMOTIDINE Inactive LOVENOX 100 MG/ML SUBCUTANEOUS SOLUTION One injection twice a da y LOVENOX 100 MG/ML SUBCUTANEOUS SOLUTION 894030 ENOXAPAR IN SODIUM Inactive Vital Signs Date [...] HGBA1C - Chemistry cholesterol, serum 136 mg/dL 251-658 4518/12/06 triglyceride, serum, fasting 247 mg/dL 30-200 HDL cholesterol, serum 41 mg/dL 32-60 LDL cholesterol, serum 46 mg/dL 0-130 aspartate aminotransferase (SGOT), serum 22 U/L 15-37 alanine aminotransferase (SGPT), serum 30 U/L 12-78 bilirubin, serum, total 0.80 mg/dL 0.00-1.00 hemoglobin A1C, blood, as % of total hemoglobin 6.4 % 4.3-6.0 Encounters Code Encounter Date Provider Facility CPT-51607 Level 3 Est. Patient 18:25:53 CDT Mitch Castellano janelle [facility] CPT-22217 Level 3 Est. Patient 19:43:34 CDT Mitch luis [facility] CPT-27287 Level 4 Est. Patient 09:30:18 CDT Mitch Castellano janelle [facility] CPT-84120 Level 3 Est. Patient 15:10:14 CDT Joe Gomez anh [facility] CPT-01345 Level 3 Est. Patient 15:03:46 CDT Joe Jason kamara [facility] CPT-88747 Level 3 Est. Patient 14:21:06 CDT Mitch Castellano janelle [facility] CPT-09800 Level 3 Est. Patient 14:52:06 CDT Joe Jason kamara [facility] CPT-16151 Level 3 Est. Patient 09:34:30 HOME SERVICE TECHNICIAN Mitch luis [facility] CPT-64240 Level 3 Est. Patient 09:37:15 CDT Mitch Castellano janelle [facility] CPT-45271 Level 3 Est. Patient 17:01:00 HOME SERVICE TECHNICIAN Mitch luis [facility] CPT-55534 Level 3 Est. Patient 13:53:19 HOME SERVICE TECHNICIAN Mitch luis [facility] CPT-37358 Level 3 Est. Patient 19:19:37 HOME SERVICE TECHNICIAN Mitch luis [facility] CPT-80134 Level 3 Est. Patient 13:25:53 HOME SERVICE TECHNICIAN Tavo toure MD [facility] CPT-29158 Level 3 Est. Patient 18:17:28 CDT Mitch luis [facility] CPT-99718 Level 3 Est. Patient 15:22:57 CDT Mitch luis [facility] CPT-41104 Level 3 Est. Patient 18:21:50 CDT Mitch luis [facility] CPT-99474 Level 3 Est. Patient 18:20:38 CDT Mitch luis [facility] CPT-58193 Level 3 Est. Patient 15:37:55 CDT Mitch luis [facility] CPT-57553 Level 2 Est. Patient 15:54:44 CDT Carmine benton MD [facility] CPT-45157 Level 3 Est. Patient 21:46:01 HOME SERVICE TECHNICIAN Mitch luis [facility] CPT-57378 Level 3 Est. Patient 22:15:50 CDT Mitch luis [facility] CPT-42218 Level 3 Est. Patient 10:48:15 CDT Mitch luis [facility] CPT-49903 Level 3 Est. Patient 23:20:57 CDT Tavo toure MD [facility] CPT-48201 Level 3 Est. Patient 16:26:13 CDT Mitch luis [facility] Procedures Code Procedure Name Date Entry Date Standard Desc ription CPT-JTINJ Asp/Joint Injection 18:47:02 CDT CPT-53167 Venipuncture Draw Fee 09:26:17 CDT CPT-16651 PT/INR - LAB USE ONLY 13:32:49 HOME SERVICE TECHNICIAN CPT-43933 Venipuncture Draw Fee 13:32:49 HOME SERVICE TECHNICIAN CPT-06881 PT/INR - LAB USE ONLY 10:34:49 HOME SERVICE TECHNICIAN CPT-00366 Venipuncture Draw Fee 10:34:48 HOME SERVICE TECHNICIAN CPT-04311 PT/INR - LAB USE ONLY 09:22:03 HOME SERVICE TECHNICIAN CPT-39601 Venipuncture Draw Fee 09:22:02 HOME SERVICE TECHNICIAN CPT-39700 Hemoccult IFOBT - LAB USE ONLY 10:27:22 CDT CPT-57515 Venipuncture Draw Fee 08:27:08 CDT CPT-65047 Liver Profile - LAB USE ONLY 08:27:07 CDT 2 CPT-47718 Microalbumin - LAB USE ONLY 08:27:07 CDT 20 25/05/09 CPT-11354 PT/INR - LAB USE ONLY 08:27:07 CDT CPT-58418 HGBA1C - LAB USE ONLY 08:27:07 CDT CPT-42524 CBC - LAB USE ONLY 08:27:07 CDT CPT-15117 Venipuncture Draw Fee 11:09:14 CDT CPT-65130 Venipuncture Draw Fee 08:32:21 HOME SERVICE TECHNICIAN CPT-08083 Venipuncture Draw Fee 09:38:56 HOME SERVICE TECHNICIAN CPT-73858 No Charge Offi Visit 21:36:07 CDT 1 CPT-54179 Venipuncture Draw Fee 10:13:28 HOME SERVICE TECHNICIAN CPT-97204 Venipuncture Draw Fee 08:31:11 CDT CPT-83888 Aspir/Inject Med Joint 18:17:28 CDT CPT-63259 Venipuncture Draw Fee 10:13:30 CDT CPT-85696 Venipuncture Draw Fee 08:31:43 HOME SERVICE TECHNICIAN CPT-JTINJ Joint Injection 18:34:50 CDT CPT-42427 Knee 3V 12:25:09 CDT CPT-39932 Venipuncture Draw Fee 12:15:57 CDT CPT-060 Medical Surveillance Exam 21:31:43 CDT 2011 CPT-52906 Venipuncture Draw Fee 08:32:05 HOME SERVICE TECHNICIAN CPT-OV Office Visit 18:19:06 CDT
[2020-01-18] MEDS ORDERED: PROPOFOL INJECTION 50 ML IV ONE (13:35)
--- OUTSIDE RECORDS SUMMARY | 2020-01-18 13:35 | XMS REPORT | Clinical Summary ---
Author Author Admin, Mitch Leon Organization [facility] [email or web address] Address Unknown Phone Unavailable Allergies, Adverse Reactions, [...] Coronary atherosclerosis of unspecified type of vessel, [place] or graft EDEMA 782.3 Resolved Mitch Urbina [...] 1/2 tab po q day ERICKA BARBA 87801339541 Active Renee Oconnor LPN Active FAMOTIDINE 20 MG ORAL TABLET by mouth twice a day 2017 FAMOTIDINE 78640168739 No Longer Active Mitch Urbina DO Active COLCRYS 0.6 MG ORAL TABLET 1 tab qid prn gout C OLCHICINE 62064085539 No Longer Active Mitch Urbina DO Active GLIMEPIRIDE 2 MG ORAL TABLET 1 po BID GLIMEPIRID E 86199514312 Active Renee Oconnor LPN Active KEFLEX 500 MG ORAL CAPSULE 1 po qid CEPHALEXI N 85301464228 No Longer Active Mitch Urbina DO Active LOSARTAN POTASSIUM 100 MG ORAL TABLET 1 pill by mouth daily, for blood pressure LOSARTAN POTASSIUM 47532174788 Active Renee Oconnor LPN Active AMLODIPINE BESYLATE 5 MG ORAL TABLET 1 tablet by mouth daily 201 01/20/04 AMLODIPINE BESYLATE 56484757447 No Longer Active Joe fulton APRN Active MITIGARE 0.6 MG ORAL CAPSULE 2 capsules at onset of go ut pain, then take one capsule at 1 hour if symptoms persist. COLCHICINE 59 245021819 Active Mitch Urbina DO Active COUMADIN 1 MG ORAL TABLET 2 tabs orally daily with the 5mg tab to equal 7mg daily WARFARIN SODIUM 71015920726 Active Mitch Urbina DO Active INVOKANA 100 MG ORAL TABLET 1 tablet orally daily CANAGLIFLOZIN 53172035749 Active Curly Coker MD Active MINOXIDIL 2.5 MG ORAL TABLET 1 tablet daily for high blood press ure MINOXIDIL 99998827098 Active Renee Oconnor LPN Active MECLIZINE HCL 25 MG ORAL TABLET 1 po tid 3 days, then 1/2 ta b tid 3 days MECLIZINE HCL 29569441287 No Longer Active Corey SEGURA Active ALLOPURINOL 300 MG ORAL TABLET Take 1 tablet by mouth daily 2012 ALLOPURINOL 33574517194 No Longer Active Corey SEGURA Active CLONIDINE HCL 0.1 MG ORAL TABLET 1 po bid 7 days, then 1/2 t ab po bid 7 days CLONIDINE HCL 87005982574 No Longer Active Corey SEGURA Active COUMADIN 5 MG ORAL TABLET 1 tab PO daily WARFAR IN SODIUM 03604127489 Active Curly Coker MD Active COUMADIN 4 MG ORAL TABLET 1 tablet daily WARFAR IN SODIUM 56802122936 No Longer Active Corey SEGURA Active POLYTRIM 80283-5.1 UNIT/ML-% OPHTHALMIC SOLUTION 1 rui p in affected eye every 3 hours while awake x 7 days POLYMYXIN B-TRIMETHOP RIM 24688562912 No Longer Active Corey SEGURA Active LOSARTAN POTASSIUM-HCTZ 100-12.5 MG ORAL TABLET 1 by m outh daily for high blood pressure LOSARTAN POTASSIUM-HCTZ 63147072291 No Longer A ctive Mitch Urbina DO Active LISINOPRIL-HYDROCHLOROTHIAZIDE 20-12.5 MG ORAL TABLET 1 tab by m outh daily LISINOPRIL-HYDROCHLOROTHIAZIDE 29781747969 No Longer Active Mitch Urbina DO Active LISINOPRIL 20 MG ORAL TABLET 1 tab po at HS LIS INOPRIL 16711915414 No Longer Active Mitch Urbina DO Active COUMADIN 5 MG ORAL TABLET 1 by mouth every other day 2 WARFARIN SODIUM 83627726175 No Longer Active Mitch Urbina DO Active COUMADIN 6 MG ORAL TABLET 1 by mouth every other day 2 WARFARIN SODIUM 36707054487 No Longer Active Mitch Urbina DO Active SIMVASTATIN 40 MG ORAL TABLET 1 tab daily at bedtime SIMVASTATIN 71649836264 Active Renee Oconnor LPN Active SIMVASTATIN 20 MG ORAL TABLET 1 tab daily at bedtime 2 SIMVASTATIN 99616623558 No Longer Active Mitch Urbina DO Active LOVENOX 100 MG/ML SUBCUTANEOUS SOLUTION One injection twice a da y ENOXAPARIN SODIUM 54312319485 No Longer Active Carmine Yusuf MD Active JANUVIA 50 MG ORAL TABLET Take one by mouth daily SITAGLIPTIN PHOSPHATE 94717222615 Active Mitch Urbina DO Active JANUVIA 100 MG ORAL TABLET 1/2 by mouth every day 2011 SITAGLIPTIN PHOSPHATE 31782502754 No Longer Active Bijal Segal RN Acti ve METFORMIN HCL 500 MG ORAL TABLET 2 by mouth twice daily METFORMIN HCL 26317211665 Active Renee Oconnor MECHANIC HELPER Active COLCRYS 0.6 MG ORAL TABLET 1 po q 6 hours prn gout pain COLCHICINE 17671240622 No Longer Active Camila Reese Active LISINOPRIL 5 MG ORAL TABLET 1 by mouth every day 11/17 LISINOPRIL 93062366175 No Longer Active Nguyen Perez Active KLOR-CON 20 MEQ ORAL PACKET Take one by mouth daily 20 09/10/08 POTASSIUM CHLORIDE 31803119073 No Longer Active Nguyen Perez Active FUROSEMIDE 40 MG ORAL TABLET 1 by mouth daily F UROSEMIDE 77407907928 No Longer Active Nguyen Perez Active PROVIGIL 100 MG ORAL TABLET Take one by mouth daily 08/20/04 MODAFINIL 41800118996 No Longer Active Mitch Urbina DO Active BACTRIM DS 800-160 MG ORAL TABLET 1 tab by mouth twice daily 201 10/19/09 TRIMETHOPRIM-SULFAMETHOXAZOLE 70803291501 No Longer Active Elian Hays MD Active ADULT ASPIRIN LOW STRENGTH 81 MG ORAL TABLET DISINTEGR ATING 1 by mouth every daily ASPIRIN 90583422152 Active Mitch Urbina DO Ac tive METOPROLOL TARTRATE 50 MG ORAL TABLET 1 by mouth twice daily METOPROLOL TARTRATE 83790404735 Active Mitch Urbina DO Active BACTRIM DS 800-160 MG ORAL TABLET 1 tab by mouth twice daily 201 10/19/09 BACTRIM DS 800-160 MG ORAL TABLET 062074 TRIMETHOPRIM-SULFAMETHOXAZOLE Inactive PROVIGIL 100 MG ORAL TABLET Take one by mouth daily 08/20/04 PROVIGIL 100 MG ORAL TABLET 053168 MODAFINIL Inactive FUROSEMIDE 40 MG ORAL TABLET 1 by mouth daily FUROSEMIDE 40 MG ORAL TABLET 029378 FUROSEMIDE Inactive KLOR-CON 20 MEQ ORAL PACKET Take one by mouth daily 09/10/08 KLOR- CON 20 MEQ ORAL PACKET 7294130 POTASSIUM CHLORIDE Inactive LISINOPRIL 5 MG ORAL TABLET 1 by mouth every day 11/17 LISINOPRIL 5 MG ORAL TABLET 502228 LISINOPRIL Inactive COLCRYS 0.6 MG ORAL TABLET 1 po q 6 hours prn gout pain COLCRYS 0.6 MG ORAL TABLET 294126 COLCHICINE Inactive JANUVIA 100 MG ORAL TABLET 1/2 by mouth every day 2011 JANUVIA 100 MG ORAL TABLET SITAGLIPTIN PHOSPHATE Inactive SIMVASTATIN 20 MG ORAL TABLET 1 tab daily at bedtime 2 SIMVASTATIN 20 MG ORAL TABLET 319550 SIMVASTATIN Inactive COUMADIN 6 MG ORAL TABLET 1 by mouth every other day COUMADIN 6 MG ORAL TABLET 664289 WARFARIN SODIUM Inactive COUMADIN 5 MG ORAL TABLET 1 by mouth every other day COUMADIN 5 MG ORAL TABLET 779551 WARFARIN SODIUM Inactive LISINOPRIL 20 MG ORAL TABLET 1 tab po at HS LISINOPRIL 20 MG ORAL TABLET 042330 LISINOPRIL Inactive LISINOPRIL-HYDROCHLOROTHIAZIDE 20-12.5 MG ORAL TABLET 1 tab by m outh daily LISINOPRIL-HYDROCHLOROTHIAZIDE 20-12.5 MG ORAL TABLET 393951 LISINOPRIL-HYDROCHLOROTHIAZIDE Inactive POLYTRIM 80408-3.1 UNIT/ML-% OPHTHALMIC SOLUTION 1 rui p in affected eye every 3 hours while awake x 7 days POLYTRIM 1000 0-0.1 UNIT/ML-% OPHTHALMIC SOLUTION 578550 POLYMYXIN B-TRIMETHOPRIM Inactive COUMADIN 4 MG ORAL TABLET 1 tablet daily COUMADIN 4 MG ORAL TABLET 636179 WARFARIN SODIUM Inactive CLONIDINE HCL 0.1 MG ORAL TABLET 1 po bid 7 days, then 1/2 t ab po bid 7 days CLONIDINE HCL 0.1 MG ORAL TABLET 983503 CLONIDIN E HCL Inactive ALLOPURINOL 300 MG ORAL TABLET Take 1 tablet by mouth daily 2012 ALLOPURINOL 300 MG ORAL TABLET 946768 ALLOPURINOL I nactive MECLIZINE HCL 25 MG ORAL TABLET 1 po tid 3 days, then 1/2 ta b tid 3 days MECLIZINE HCL 25 MG ORAL TABLET 200943 MECLIZINE HCL Inactive AMLODIPINE BESYLATE 5 MG ORAL TABLET 1 tablet by mouth daily 201 01/20/04 AMLODIPINE BESYLATE 5 MG ORAL TABLET 829337 AMLODIPINE BESYLATE Inactive KEFLEX 500 MG ORAL CAPSULE 1 po qid K EFLEX 500 MG ORAL CAPSULE 393254 CEPHALEXIN Inactive COLCRYS 0.6 MG ORAL TABLET 1 tab qid prn gout COLCRYS 0.6 MG ORAL TABLET 545774 COLCHICINE Inactive FAMOTIDINE 20 MG ORAL TABLET by mouth twice a day 2017 FAMOTIDINE 20 MG ORAL TABLET 416556 FAMOTIDINE Inactive LOVENOX 100 MG/ML SUBCUTANEOUS SOLUTION One injection twice a da y LOVENOX 100 MG/ML SUBCUTANEOUS SOLUTION 721089 ENOXAPAR IN SODIUM Inactive Vital Signs Date [...] HGBA1C - Chemistry cholesterol, serum 136 mg/dL 755-466 8503/12/06 triglyceride, serum, fasting 247 mg/dL 30-200 HDL cholesterol, serum 41 mg/dL 32-60 LDL cholesterol, serum 46 mg/dL 0-130 aspartate aminotransferase (SGOT), serum 22 U/L 15-37 alanine aminotransferase (SGPT), serum 30 U/L 12-78 bilirubin, serum, total 0.80 mg/dL 0.00-1.00 hemoglobin A1C, blood, as % of total hemoglobin 6.4 % 4.3-6.0 Encounters Code Encounter Date Provider Facility CPT-02314 Level 3 Est. Patient 18:25:53 CDT Mitch luis [facility] CPT-75776 Level 3 Est. Patient 19:43:34 CDT Mitch luis [facility] CPT-49380 Level 4 Est. Patient 09:30:18 CDT Mitch W L janelle [facility] CPT-20393 Level 3 Est. Patient 15:10:14 CDT Joe kamara [facility] CPT-28375 Level 3 Est. Patient 15:03:46 CDT Joe kamara [facility]-98498 Level 3 Est. Patient 14:21:06 CDT Mitch Ambrose L janelle [facility]-92060 Level 3 Est. Patient 14:52:06 CDT Devonjustincarlitos kamara [facility]-58531 Level 3 Est. Patient 09:34:30 LAND MANAGER Mitch Ambrose L janelle [facility]-84868 Level 3 Est. Patient 09:37:15 CDT Mitch Ambrose L janelle [facility]-46982 Level 3 Est. Patient 17:01:00 LAND MANAGER Mitch Ambrose L janelle [facility] CPT-04411 Level 3 Est. Patient 13:53:19 LAND MANAGER Mitch Ambrose L janelle [facility] CPT-52605 Level 3 Est. Patient 19:19:37 LAND MANAGER Mitch W L janelle [facility] CPT-33177 Level 3 Est. Patient 13:25:53 LAND MANAGER Tavo toure MD [facility]-50506 Level 3 Est. Patient 18:17:28 CDT Mitch W L janelle [facility] CPT-48452 Level 3 Est. Patient 15:22:57 CDT Mitch W L janelle [facility] CPT-02385 Level 3 Est. Patient 18:21:50 CDT Mitch W L ee [facility] CPT-99583 Level 3 Est. Patient 18:20:38 CDT Mitch W L ee [facility] CPT-74258 Level 3 Est. Patient 15:37:55 CDT Mitch Arnol Nona janelle [facility] CPT-84020 Level 2 Est. Patient 15:54:44 CDT Carmine benton MD [facility] CPT-14879 Level 3 Est. Patient 21:46:01 LAND MANAGER Mitch luis [facility] CPT-58900 Level 3 Est. Patient 22:15:50 CDT Mitch luis [facility] CPT-43796 Level 3 Est. Patient 10:48:15 CDT Mitch luis [facility] CPT-60923 Level 3 Est. Patient 23:20:57 CDT Tavo toure MD [facility] CPT-97675 Level 3 Est. Patient 16:26:13 CDT Mitch luis [facility] Procedures Code Procedure Name Date Entry Date Standard Desc ription CPT-JTINJ Asp/Joint Injection 18:47:02 CDT CPT-59758 Venipuncture Draw Fee 09:26:17 CDT CPT-75420 PT/INR - LAB USE ONLY 13:32:49 LAND MANAGER CPT-82689 Venipuncture Draw Fee 13:32:49 LAND MANAGER CPT-62811 PT/INR - LAB USE ONLY 10:34:49 LAND MANAGER CPT-41204 Venipuncture Draw Fee 10:34:48 LAND MANAGER CPT-91607 PT/INR - LAB USE ONLY 09:22:03 LAND MANAGER CPT-42729 Venipuncture Draw Fee 09:22:02 LAND MANAGER CPT-16674 Hemoccult IFOBT - LAB USE ONLY 10:27:22 CDT CPT-08972 Venipuncture Draw Fee 08:27:08 CDT CPT-80365 Liver Profile - LAB USE ONLY 08:27:07 CDT 2 CPT-75833 Microalbumin - LAB USE ONLY 08:27:07 CDT 20 25/05/09 CPT-50950 PT/INR - LAB USE ONLY 08:27:07 CDT CPT-28110 HGBA1C - LAB USE ONLY 08:27:07 CDT CPT-69084 CBC - LAB USE ONLY 08:27:07 CDT CPT-81581 Venipuncture Draw Fee 11:09:14 CDT CPT-58285 Venipuncture Draw Fee 08:32:21 LAND MANAGER CPT-66633 Venipuncture Draw Fee 09:38:56 LAND MANAGER CPT-89002 No Charge Offi Visit 21:36:07 CDT 1 CPT-85598 Venipuncture Draw Fee 10:13:28 LAND MANAGER CPT-87000 Venipuncture Draw Fee 08:31:11 CDT CPT-22533 Aspir/Inject Med Joint 18:17:28 CDT CPT-01041 Venipuncture Draw Fee 10:13:30 CDT CPT-21081 Venipuncture Draw Fee 08:31:43 LAND MANAGER CPT-JTINJ Joint Injection 18:34:50 CDT CPT-25059 Knee 3V 12:25:09 CDT CPT-81642 Venipuncture Draw Fee 12:15:57 CDT CPT-060 Medical Surveillance Exam 21:31:43 CDT 2011 CPT-67669 Venipuncture Draw Fee 08:32:05 LAND MANAGER CPT-OV Office Visit 18:19:06 CDT
--- OUTSIDE RECORDS SUMMARY | 2020-01-18 13:35 | XMS REPORT | Clinical Summary ---
Author Author Admin, Mitch Leon Organization [facility] [employer] Address Unknown Phone Unavailable Allergies, Adverse Reactions, [...] Coronary atherosclerosis of unspecified type of vessel, [place] or graft EDEMA 782.3 Resolved Mitch [...] 1/2 tab po q day ERICKA BARBA 19617625436 Active Renee Oconnor LPN Active FAMOTIDINE 20 MG ORAL TABLET by mouth twice a day 2017 FAMOTIDINE 15225935710 No Longer Active Mitch Urbina DO Active COLCRYS 0.6 MG ORAL TABLET 1 tab qid prn gout C OLCHICINE 88562899030 No Longer Active Mitch Urbina DO Active GLIMEPIRIDE 2 MG ORAL TABLET 1 po BID GLIMEPIRID E 55400801439 Active Renee Oconnor LPN Active KEFLEX 500 MG ORAL CAPSULE 1 po qid CEPHALEXI N 01179853239 No Longer Active Mitch Urbina DO Active LOSARTAN POTASSIUM 100 MG ORAL TABLET 1 pill by mouth daily, for blood pressure LOSARTAN POTASSIUM 60315577351 Active Renee Oconnor LPN Active AMLODIPINE BESYLATE 5 MG ORAL TABLET 1 tablet by mouth daily 201 01/20/04 AMLODIPINE BESYLATE 61243460007 No Longer Active Joe fulton APRN Active MITIGARE 0.6 MG ORAL CAPSULE 2 capsules at onset of go ut pain, then take one capsule at 1 hour if symptoms persist. COLCHICINE 59 790928543 Active Mitch Urbina DO Active COUMADIN 1 MG ORAL TABLET 2 tabs orally daily with the 5mg tab to equal 7mg daily WARFARIN SODIUM 62659593511 Active Mitch Urbina DO Active INVOKANA 100 MG ORAL TABLET 1 tablet orally daily CANAGLIFLOZIN 21738792709 Active Curly Coker MD Active MINOXIDIL 2.5 MG ORAL TABLET 1 tablet daily for high blood press ure MINOXIDIL 20011925502 Active Renee Oconnor LPN Active MECLIZINE HCL 25 MG ORAL TABLET 1 po tid 3 days, then 1/2 ta b tid 3 days MECLIZINE HCL 03627290747 No Longer Active Corey SEGURA Active ALLOPURINOL 300 MG ORAL TABLET Take 1 tablet by mouth daily 2012 ALLOPURINOL 08083013187 No Longer Active Corey SEGURA Active CLONIDINE HCL 0.1 MG ORAL TABLET 1 po bid 7 days, then 1/2 t ab po bid 7 days CLONIDINE HCL 21465763630 No Longer Active Corey SEGURA Active COUMADIN 5 MG ORAL TABLET 1 tab PO daily WARFAR IN SODIUM 64355352855 Active Curly Coker MD Active COUMADIN 4 MG ORAL TABLET 1 tablet daily WARFAR IN SODIUM 46595663578 No Longer Active Corey SEGURA Active POLYTRIM 94814-1.1 UNIT/ML-% OPHTHALMIC SOLUTION 1 rui p in affected eye every 3 hours while awake x 7 days POLYMYXIN B-TRIMETHOP RIM 45057465204 No Longer Active Corey SEGURA Active LOSARTAN POTASSIUM-HCTZ 100-12.5 MG ORAL TABLET 1 by m outh daily for high blood pressure LOSARTAN POTASSIUM-HCTZ 59413714124 No Longer A ctive Mitch Urbina DO Active LISINOPRIL-HYDROCHLOROTHIAZIDE 20-12.5 MG ORAL TABLET 1 tab by m outh daily LISINOPRIL-HYDROCHLOROTHIAZIDE 27060305062 No Longer Active Mitch Urbina DO Active LISINOPRIL 20 MG ORAL TABLET 1 tab po at HS LIS INOPRIL 16459462677 No Longer Active Mitch Urbina DO Active COUMADIN 5 MG ORAL TABLET 1 by mouth every other day 2 WARFARIN SODIUM 98288670350 No Longer Active Mitch Urbina DO Active COUMADIN 6 MG ORAL TABLET 1 by mouth every other day 2 WARFARIN SODIUM 56834879094 No Longer Active Mitch Urbina DO Active SIMVASTATIN 40 MG ORAL TABLET 1 tab daily at bedtime SIMVASTATIN 05045312188 Active Renee Oconnor LPN Active SIMVASTATIN 20 MG ORAL TABLET 1 tab daily at bedtime 2 SIMVASTATIN 58442770002 No Longer Active Mitch Urbina DO Active LOVENOX 100 MG/ML SUBCUTANEOUS SOLUTION One injection twice a da y ENOXAPARIN SODIUM 30137932333 No Longer Active Carmine Yusuf MD Active JANUVIA 50 MG ORAL TABLET Take one by mouth daily SITAGLIPTIN PHOSPHATE 72740624498 Active Mitch Urbina DO Active JANUVIA 100 MG ORAL TABLET 1/2 by mouth every day 2011 SITAGLIPTIN PHOSPHATE 06517623305 No Longer Active Bijal Segal RN Acti ve METFORMIN HCL 500 MG ORAL TABLET 2 by mouth twice daily METFORMIN HCL 69649981479 Active Mitch Urbina DO Active COLCRYS 0.6 MG ORAL TABLET 1 po q 6 hours prn gout pain COLCHICINE 41246428488 No Longer Active Camila Reese Active LISINOPRIL 5 MG ORAL TABLET 1 by mouth every day 11/17 LISINOPRIL 11935413551 No Longer Active Nguyenmolly Perez Active KLOR-CON 20 MEQ ORAL PACKET Take one by mouth daily 09/10/08 POTASSIUM CHLORIDE 35283086202 No Longer Active Nguyen Perez Active FUROSEMIDE 40 MG ORAL TABLET 1 by mouth daily F UROSEMIDE 57857262002 No Longer Active Nguyen Perez Active PROVIGIL 100 MG ORAL TABLET Take one by mouth daily 08/20/04 MODAFINIL 14314355573 No Longer Active Mitch Urbina DO Active BACTRIM DS 800-160 MG ORAL TABLET 1 tab by mouth twice daily 201 10/19/09 TRIMETHOPRIM-SULFAMETHOXAZOLE 23304789492 No Longer Active Elian Hays MD Active ADULT ASPIRIN LOW STRENGTH 81 MG ORAL TABLET DISINTEGR ATING 1 by mouth every daily ASPIRIN 46766325692 Active Mitch Urbina DO Ac tive METOPROLOL TARTRATE 50 MG ORAL TABLET 1 by mouth twice daily METOPROLOL TARTRATE 69700714834 Active Mitch Urbina DO Active BACTRIM DS 800-160 MG ORAL TABLET 1 tab by mouth twice daily 201 10/19/09 BACTRIM DS 800-160 MG ORAL TABLET 891672 TRIMETHOPRIM-SULFAMETHOXAZOLE Inactive PROVIGIL 100 MG ORAL TABLET Take one by mouth daily 08/20/04 PROVIGIL 100 MG ORAL TABLET 966785 MODAFINIL Inactive FUROSEMIDE 40 MG ORAL TABLET 1 by mouth daily FUROSEMIDE 40 MG ORAL TABLET 509079 FUROSEMIDE Inactive KLOR-CON 20 MEQ ORAL PACKET Take one by mouth daily 09/10/08 KLOR- CON 20 MEQ ORAL PACKET 4145880 POTASSIUM CHLORIDE Inactive LISINOPRIL 5 MG ORAL TABLET 1 by mouth every day 11/17 LISINOPRIL 5 MG ORAL TABLET 882101 LISINOPRIL Inactive COLCRYS 0.6 MG ORAL TABLET 1 po q 6 hours prn gout pain COLCRYS 0.6 MG ORAL TABLET 716660 COLCHICINE Inactive JANUVIA 100 MG ORAL TABLET 1/2 by mouth every day 2011 JANUVIA 100 MG ORAL TABLET SITAGLIPTIN PHOSPHATE Inactive SIMVASTATIN 20 MG ORAL TABLET 1 tab daily at bedtime 2 SIMVASTATIN 20 MG ORAL TABLET 917525 SIMVASTATIN Inactive COUMADIN 6 MG ORAL TABLET 1 by mouth every other day COUMADIN 6 MG ORAL TABLET 764612 WARFARIN SODIUM Inactive COUMADIN 5 MG ORAL TABLET 1 by mouth every other day 2 COUMADIN 5 MG ORAL TABLET 282678 WARFARIN SODIUM Inactive LISINOPRIL 20 MG ORAL TABLET 1 tab po at HS LISINOPRIL 20 MG ORAL TABLET 617159 LISINOPRIL Inactive LISINOPRIL-HYDROCHLOROTHIAZIDE 20-12.5 MG ORAL TABLET 1 tab by m outh daily LISINOPRIL-HYDROCHLOROTHIAZIDE 20-12.5 MG ORAL TABLET 848258 LISINOPRIL-HYDROCHLOROTHIAZIDE Inactive POLYTRIM 27422-8.1 UNIT/ML-% OPHTHALMIC SOLUTION 1 rui p in affected eye every 3 hours while awake x 7 days POLYTRIM 1000 0-0.1 UNIT/ML-% OPHTHALMIC SOLUTION 756741 POLYMYXIN B-TRIMETHOPRIM Inactive COUMADIN 4 MG ORAL TABLET 1 tablet daily COUMADIN 4 MG ORAL TABLET 997728 WARFARIN SODIUM Inactive CLONIDINE HCL 0.1 MG ORAL TABLET 1 po bid 7 days, then 1/2 t ab po bid 7 days CLONIDINE HCL 0.1 MG ORAL TABLET 090644 CLONIDIN E HCL Inactive ALLOPURINOL 300 MG ORAL TABLET Take 1 tablet by mouth daily 2012 ALLOPURINOL 300 MG ORAL TABLET 541055 ALLOPURINOL I nactive MECLIZINE HCL 25 MG ORAL TABLET 1 po tid 3 days, then 1/2 ta b tid 3 days MECLIZINE HCL 25 MG ORAL TABLET 232873 MECLIZINE HCL Inactive AMLODIPINE BESYLATE 5 MG ORAL TABLET 1 tablet by mouth daily 201 01/20/04 AMLODIPINE BESYLATE 5 MG ORAL TABLET 866876 AMLODIPINE BESYLATE Inactive KEFLEX 500 MG ORAL CAPSULE 1 po qid K EFLEX 500 MG ORAL CAPSULE 187735 CEPHALEXIN Inactive COLCRYS 0.6 MG ORAL TABLET 1 tab qid prn gout COLCRYS 0.6 MG ORAL TABLET 226276 COLCHICINE Inactive FAMOTIDINE 20 MG ORAL TABLET by mouth twice a day 2017 FAMOTIDINE 20 MG ORAL TABLET 079649 FAMOTIDINE Inactive LOVENOX 100 MG/ML SUBCUTANEOUS SOLUTION One injection twice a da y LOVENOX 100 MG/ML SUBCUTANEOUS SOLUTION 059568 ENOXAPAR IN SODIUM Inactive Vital Signs Date [...] HGBA1C - Chemistry cholesterol, serum 136 mg/dL 718-686 2953/12/06 triglyceride, serum, fasting 247 mg/dL 30-200 HDL cholesterol, serum 41 mg/dL 32-60 LDL cholesterol, serum 46 mg/dL 0-130 aspartate aminotransferase (SGOT), serum 22 U/L 15-37 alanine aminotransferase (SGPT), serum 30 U/L 12-78 bilirubin, serum, total 0.80 mg/dL 0.00-1.00 hemoglobin A1C, blood, as % of total hemoglobin 6.4 % 4.3-6.0 Encounters Code Encounter Date Provider Facility CPT-20883 Level 3 Est. Patient 18:25:53 CDT Mitch luis [facility] CPT-24718 Level 3 Est. Patient 19:43:34 CDT Mitch luis [facility] CPT-04363 Level 4 Est. Patient 09:30:18 CDT Mitch Castellano janelle [facility] CPT-22635 Level 3 Est. Patient 15:10:14 CDT Joe kamara [facility] CPT-47618 Level 3 Est. Patient 15:03:46 CDT Joe kamara [facility] [place] Level 3 Est. Patient 14:21:06 CDT Mitch Ambrose L janelle [facility] CPT-06057 Level 3 Est. Patient 14:52:06 CDT Devonsonya Jason kamara [facility] [place] [facility] [place]-[address] Level 3 Est. Patient 09:34:30 ENGINE INSPECTOR Mitch Ambrose L janelle [facility]-79537 Level 3 Est. Patient 09:37:15 CDT Mitch luis [facility]-73171 Level 3 Est. Patient 17:01:00 ENGINE INSPECTOR Mitch luis [facility] CPT-19011 Level 3 Est. Patient 13:53:19 ENGINE INSPECTOR Mitch Ambrose L janelle [facility] CPT-36133 Level 3 Est. Patient 19:19:37 ENGINE INSPECTOR Mitch W L janelle [facility] CPT-50802 Level 3 Est. Patient 13:25:53 ENGINE INSPECTOR Tavo toure MD [facility]-10064 Level 3 Est. Patient 18:17:28 CDT Mitch W L janelle [facility] CPT-58024 Level 3 Est. Patient 15:22:57 CDT Mitch Ambrose L janelle [facility] CPT-90165 Level 3 Est. Patient 18:21:50 CDT Mitch W L ee [facility] CPT-65983 Level 3 Est. Patient 18:20:38 CDT Mitch W L janelle [facility] CPT-01449 Level 3 Est. Patient 15:37:55 CDT Mitch luis [facility] CPT-26936 Level 2 Est. Patient 15:54:44 CDT Carmine benton MD [facility] CPT-24425 Level 3 Est. Patient 21:46:01 ENGINE INSPECTOR Mitch luis [facility] CPT-10905 Level 3 Est. Patient 22:15:50 CDT Mitch Castellano janelle [facility] CPT-35058 Level 3 Est. Patient 10:48:15 CDT Mitch Arnol luis [facility] CPT-02381 Level 3 Est. Patient 23:20:57 CDT Tavo toure MD [facility] CPT-96705 Level 3 Est. Patient 16:26:13 CDT Mitch Castellano janelle [facility] Procedures Code Procedure Name Date Entry Date Standard Desc ription CPT-JTINJ Asp/Joint Injection 18:47:02 CDT CPT-67240 Venipuncture Draw Fee 09:26:17 CDT CPT-98186 PT/INR - LAB USE ONLY 13:32:49 ENGINE INSPECTOR CPT-54723 Venipuncture Draw Fee 13:32:49 ENGINE INSPECTOR CPT-13449 PT/INR - LAB USE ONLY 10:34:49 ENGINE INSPECTOR CPT-38339 Venipuncture Draw Fee 10:34:48 ENGINE INSPECTOR CPT-95689 PT/INR - LAB USE ONLY 09:22:03 ENGINE INSPECTOR CPT-38616 Venipuncture Draw Fee 09:22:02 ENGINE INSPECTOR CPT-50426 Hemoccult IFOBT - LAB USE ONLY 10:27:22 CDT CPT-70080 Venipuncture Draw Fee 08:27:08 CDT CPT-20945 Liver Profile - LAB USE ONLY 08:27:07 CDT 2 CPT-73242 Microalbumin - LAB USE ONLY 08:27:07 CDT 20 25/05/09 CPT-64088 PT/INR - LAB USE ONLY 08:27:07 CDT CPT-48611 HGBA1C - LAB USE ONLY 08:27:07 CDT CPT-84538 CBC - LAB USE ONLY 08:27:07 CDT CPT-25296 Venipuncture Draw Fee 11:09:14 CDT CPT-76108 Venipuncture Draw Fee 08:32:21 ENGINE INSPECTOR CPT-62820 Venipuncture Draw Fee 09:38:56 ENGINE INSPECTOR CPT-38849 No Charge Offi Visit 21:36:07 CDT 1 CPT-01891 Venipuncture Draw Fee 10:13:28 ENGINE INSPECTOR CPT-86751 Venipuncture Draw Fee 08:31:11 CDT CPT-30467 Aspir/Inject Med Joint 18:17:28 CDT CPT-68721 Venipuncture Draw Fee 10:13:30 CDT CPT-04999 Venipuncture Draw Fee 08:31:43 ENGINE INSPECTOR CPT-JTINJ Joint Injection 18:34:50 CDT CPT-47486 Knee 3V 12:25:09 CDT CPT-66073 Venipuncture Draw Fee 12:15:57 CDT CPT-060 Medical Surveillance Exam 21:31:43 CDT 2011 CPT-53186 Venipuncture Draw Fee 08:32:05 ENGINE INSPECTOR CPT-OV Office Visit 18:19:06 CDT
--- OUTSIDE RECORDS SUMMARY | 2020-01-18 13:35 | XMS REPORT | Clinical Summary ---
Author Author Admin, Mitch Leon Organization [facility] Address Unknown Phone Unavailable Allergies, Adverse Reactions, [...] atherosclerosis of unspecified type of vessel, [place] or graft EDEMA 782.3 Resolved Mitch [...] 1/2 tab po q day ERICKA BARBA 44774478726 Active Renee Oconnor LPN Active FAMOTIDINE 20 MG ORAL TABLET by mouth twice a day 2017 FAMOTIDINE 62059718782 No Longer Active Mitch Urbina DO Active COLCRYS 0.6 MG ORAL TABLET 1 tab qid prn gout C OLCHICINE 12079799798 No Longer Active Mitch Urbina DO Active GLIMEPIRIDE 2 MG ORAL TABLET 1 po BID GLIMEPIRID E 35217483784 Active Renee Oconnor LPN Active KEFLEX 500 MG ORAL CAPSULE 1 po qid CEPHALEXI N 63758509379 No Longer Active Mitch Urbina DO Active LOSARTAN POTASSIUM 100 MG ORAL TABLET 1 pill by mouth daily, for blood pressure LOSARTAN POTASSIUM 90008253594 Active Renee Oconnor LPN Active AMLODIPINE BESYLATE 5 MG ORAL TABLET 1 tablet by mouth daily 201 01/20/04 AMLODIPINE BESYLATE 16061729727 No Longer Active Joe fulton APRN Active MITIGARE 0.6 MG ORAL CAPSULE 2 capsules at onset of go ut pain, then take one capsule at 1 hour if symptoms persist. COLCHICINE 59 251715626 Active Mitch Urbina DO Active COUMADIN 1 MG ORAL TABLET 2 tabs orally daily with the 5mg tab to equal 7mg daily WARFARIN SODIUM 12868194569 Active Mitch Urbina DO Active INVOKANA 100 MG ORAL TABLET 1 tablet orally daily CANAGLIFLOZIN 52363697956 Active Curly Coker MD Active MINOXIDIL 2.5 MG ORAL TABLET 1 tablet daily for high blood press ure MINOXIDIL 86943650503 Active Renee Oconnor LPN Active MECLIZINE HCL 25 MG ORAL TABLET 1 po tid 3 days, then 1/2 ta b tid 3 days MECLIZINE HCL 76317913254 No Longer Active Corey SEGURA Active ALLOPURINOL 300 MG ORAL TABLET Take 1 tablet by mouth daily 2012 ALLOPURINOL 00201514178 No Longer Active Corey SEGURA Active CLONIDINE HCL 0.1 MG ORAL TABLET 1 po bid 7 days, then 1/2 t ab po bid 7 days CLONIDINE HCL 54380559892 No Longer Active Corey SEGURA Active COUMADIN 5 MG ORAL TABLET 1 tab PO daily WARFAR IN SODIUM 34833055766 Active Curly Coker MD Active COUMADIN 4 MG ORAL TABLET 1 tablet daily WARFAR IN SODIUM 90901111022 No Longer Active Corey SEGURA Active POLYTRIM 32214-1.1 UNIT/ML-% OPHTHALMIC SOLUTION 1 rui p in affected eye every 3 hours while awake x 7 days POLYMYXIN B-TRIMETHOP RIM 07049151136 No Longer Active Corey SEGURA Active LOSARTAN POTASSIUM-HCTZ 100-12.5 MG ORAL TABLET 1 by m outh daily for high blood pressure LOSARTAN POTASSIUM-HCTZ 75226089548 No Longer A ctive Mitch Urbina DO Active LISINOPRIL-HYDROCHLOROTHIAZIDE 20-12.5 MG ORAL TABLET 1 tab by m outh daily LISINOPRIL-HYDROCHLOROTHIAZIDE 60755548794 No Longer Active Mitch Urbina DO Active LISINOPRIL 20 MG ORAL TABLET 1 tab po at HS LIS INOPRIL 76643967910 No Longer Active Mitch Urbina DO Active COUMADIN 5 MG ORAL TABLET 1 by mouth every other day 2 WARFARIN SODIUM 65736958566 No Longer Active Mitch Urbina DO Active COUMADIN 6 MG ORAL TABLET 1 by mouth every other day 2 WARFARIN SODIUM 76970077199 No Longer Active Mitch Urbina DO Active SIMVASTATIN 40 MG ORAL TABLET 1 tab daily at bedtime SIMVASTATIN 07271863267 Active Renee Oconnor LPN Active SIMVASTATIN 20 MG ORAL TABLET 1 tab daily at bedtime 2 SIMVASTATIN 16532660648 No Longer Active Mitch Urbina DO Active LOVENOX 100 MG/ML SUBCUTANEOUS SOLUTION One injection twice a da y ENOXAPARIN SODIUM 09866035991 No Longer Active Carmine Yusuf MD Active JANUVIA 50 MG ORAL TABLET Take one by mouth daily SITAGLIPTIN PHOSPHATE 25652092580 Active Mitch Urbina DO Active JANUVIA 100 MG ORAL TABLET 1/2 by mouth every day 2011 SITAGLIPTIN PHOSPHATE 97231753814 No Longer Active Bijal Segal RN Acti ve METFORMIN HCL 500 MG ORAL TABLET 2 by mouth twice daily METFORMIN HCL 60062485168 Active Renee Oconnor TRACK REPAIR LABORER Active COLCRYS 0.6 MG ORAL TABLET 1 po q 6 hours prn gout pain COLCHICINE 53768438060 No Longer Active Camila Reese Active LISINOPRIL 5 MG ORAL TABLET 1 by mouth every day 11/17 LISINOPRIL 85843395789 No Longer Active Nguyen Perez Active KLOR-CON 20 MEQ ORAL PACKET Take one by mouth daily 20 09/10/08 POTASSIUM CHLORIDE 96530962813 No Longer Active Nguyen Perez Active FUROSEMIDE 40 MG ORAL TABLET 1 by mouth daily F UROSEMIDE 50056083111 No Longer Active Nguyen Perez Active PROVIGIL 100 MG ORAL TABLET Take one by mouth daily 08/20/04 MODAFINIL 07421290729 No Longer Active Mitch Urbina DO Active BACTRIM DS 800-160 MG ORAL TABLET 1 tab by mouth twice daily 201 10/19/09 TRIMETHOPRIM-SULFAMETHOXAZOLE 92598912904 No Longer Active Elian Hays MD Active ADULT ASPIRIN LOW STRENGTH 81 MG ORAL TABLET DISINTEGR ATING 1 by mouth every daily ASPIRIN 85327155698 Active Mitch Urbina DO Ac tive METOPROLOL TARTRATE 50 MG ORAL TABLET 1 by mouth twice daily METOPROLOL TARTRATE 84036769931 Active Mitch Urbina DO Active BACTRIM DS 800-160 MG ORAL TABLET 1 tab by mouth twice daily 201 10/19/09 BACTRIM DS 800-160 MG ORAL TABLET 959311 TRIMETHOPRIM-SULFAMETHOXAZOLE Inactive PROVIGIL 100 MG ORAL TABLET Take one by mouth daily 08/20/04 PROVIGIL 100 MG ORAL TABLET 855922 MODAFINIL Inactive FUROSEMIDE 40 MG ORAL TABLET 1 by mouth daily FUROSEMIDE 40 MG ORAL TABLET 464798 FUROSEMIDE Inactive KLOR-CON 20 MEQ ORAL PACKET Take one by mouth daily 09/10/08 KLOR- CON 20 MEQ ORAL PACKET 1178045 POTASSIUM CHLORIDE Inactive LISINOPRIL 5 MG ORAL TABLET 1 by mouth every day 11/17 LISINOPRIL 5 MG ORAL TABLET 915586 LISINOPRIL Inactive COLCRYS 0.6 MG ORAL TABLET 1 po q 6 hours prn gout pain COLCRYS 0.6 MG ORAL TABLET 782920 COLCHICINE Inactive JANUVIA 100 MG ORAL TABLET 1/2 by mouth every day 2011 JANUVIA 100 MG ORAL TABLET SITAGLIPTIN PHOSPHATE Inactive SIMVASTATIN 20 MG ORAL TABLET 1 tab daily at bedtime 2 SIMVASTATIN 20 MG ORAL TABLET 720186 SIMVASTATIN Inactive COUMADIN 6 MG ORAL TABLET 1 by mouth every other day COUMADIN 6 MG ORAL TABLET 329295 WARFARIN SODIUM Inactive COUMADIN 5 MG ORAL TABLET 1 by mouth every other day COUMADIN 5 MG ORAL TABLET 847015 WARFARIN SODIUM Inactive LISINOPRIL 20 MG ORAL TABLET 1 tab po at HS LISINOPRIL 20 MG ORAL TABLET 751259 LISINOPRIL Inactive LISINOPRIL-HYDROCHLOROTHIAZIDE 20-12.5 MG ORAL TABLET 1 tab by m outh daily LISINOPRIL-HYDROCHLOROTHIAZIDE 20-12.5 MG ORAL TABLET 180739 LISINOPRIL-HYDROCHLOROTHIAZIDE Inactive POLYTRIM 70873-0.1 UNIT/ML-% OPHTHALMIC SOLUTION 1 rui p in affected eye every 3 hours while awake x 7 days POLYTRIM 1000 0-0.1 UNIT/ML-% OPHTHALMIC SOLUTION 873774 POLYMYXIN B-TRIMETHOPRIM Inactive COUMADIN 4 MG ORAL TABLET 1 tablet daily COUMADIN 4 MG ORAL TABLET 442545 WARFARIN SODIUM Inactive CLONIDINE HCL 0.1 MG ORAL TABLET 1 po bid 7 days, then 1/2 t ab po bid 7 days CLONIDINE HCL 0.1 MG ORAL TABLET 543538 CLONIDIN E HCL Inactive ALLOPURINOL 300 MG ORAL TABLET Take 1 tablet by mouth daily 2012 ALLOPURINOL 300 MG ORAL TABLET 836235 ALLOPURINOL I nactive MECLIZINE HCL 25 MG ORAL TABLET 1 po tid 3 days, then 1/2 ta b tid 3 days MECLIZINE HCL 25 MG ORAL TABLET 479671 MECLIZINE HCL Inactive AMLODIPINE BESYLATE 5 MG ORAL TABLET 1 tablet by mouth daily 201 01/20/04 AMLODIPINE BESYLATE 5 MG ORAL TABLET 039975 AMLODIPINE BESYLATE Inactive KEFLEX 500 MG ORAL CAPSULE 1 po qid K EFLEX 500 MG ORAL CAPSULE 300712 CEPHALEXIN Inactive COLCRYS 0.6 MG ORAL TABLET 1 tab qid prn gout COLCRYS 0.6 MG ORAL TABLET 940268 COLCHICINE Inactive FAMOTIDINE 20 MG ORAL TABLET by mouth twice a day 2017 FAMOTIDINE 20 MG ORAL TABLET 602283 FAMOTIDINE Inactive LOVENOX 100 MG/ML SUBCUTANEOUS SOLUTION One injection twice a da y LOVENOX 100 MG/ML SUBCUTANEOUS SOLUTION 198157 ENOXAPAR IN SODIUM Inactive Vital Signs Date [...] HGBA1C - Chemistry cholesterol, serum 136 mg/dL 358-624 8273/12/06 triglyceride, serum, fasting 247 mg/dL 30-200 HDL cholesterol, serum 41 mg/dL 32-60 LDL cholesterol, serum 46 mg/dL 0-130 aspartate aminotransferase (SGOT), serum 22 U/L 15-37 alanine aminotransferase (SGPT), serum 30 U/L 12-78 bilirubin, serum, total 0.80 mg/dL 0.00-1.00 hemoglobin A1C, blood, as % of total hemoglobin 6.4 % 4.3-6.0 Encounters Code Encounter Date Provider Facility CPT-22430 Level 3 Est. Patient 18:25:53 CDT Mitch ulis [facility] CPT-11913 Level 3 Est. Patient 19:43:34 CDT Mitch luis [facility] CPT-07734 Level 4 Est. Patient 09:30:18 CDT Mitch W L janelle [facility] CPT-98450 Level 3 Est. Patient 15:10:14 CDT Joe kamara [facility] CPT-82171 Level 3 Est. Patient 15:03:46 CDT Joe kamara [facility]-89505 Level 3 Est. Patient 14:21:06 CDT Mitch Ambrose L janelle [facility]-46423 Level 3 Est. Patient 14:52:06 CDT Devonjustincarlitos kamara [facility]-60937 Level 3 Est. Patient 09:34:30 ASSISTANT BASEBALL COACH Mitch Ambrose L janelle [facility]-05306 Level 3 Est. Patient 09:37:15 CDT Mitch Ambrose L janelle [facility]-85681 Level 3 Est. Patient 17:01:00 ASSISTANT BASEBALL COACH Mitch Ambrose L janelle [facility] CPT-97731 Level 3 Est. Patient 13:53:19 ASSISTANT BASEBALL COACH Mitch Ambrose L janelle [facility] CPT-61800 Level 3 Est. Patient 19:19:37 ASSISTANT BASEBALL COACH Mitch W L janelle [facility] CPT-08987 Level 3 Est. Patient 13:25:53 ASSISTANT BASEBALL COACH Tavo toure MD [facility] [place]-42220 Level 3 Est. Patient 18:17:28 CDT Mitch W L janelle [facility] CPT-69811 Level 3 Est. Patient 15:22:57 CDT Mitch W L janelle [facility] CPT-22147 Level 3 Est. Patient 18:21:50 CDT Mitch W L ee [facility] CPT-33449 Level 3 Est. Patient 18:20:38 CDT Mitch W L ee [facility] CPT-71202 Level 3 Est. Patient 15:37:55 CDT Mitch Arnol Nona janelle [facility] CPT-70776 Level 2 Est. Patient 15:54:44 CDT Carmine benton MD [facility] CPT-42082 Level 3 Est. Patient 21:46:01 ASSISTANT BASEBALL COACH Mitch luis [facility] CPT-67227 Level 3 Est. Patient 22:15:50 CDT Mitch luis [facility] CPT-60223 Level 3 Est. Patient 10:48:15 CDT Mitch luis [facility] CPT-93408 Level 3 Est. Patient 23:20:57 CDT Tavo toure MD [facility] CPT-74532 Level 3 Est. Patient 16:26:13 CDT Mitch luis [facility] Procedures Code Procedure Name Date Entry Date Standard Desc ription CPT-JTINJ Asp/Joint Injection 18:47:02 CDT CPT-10532 Venipuncture Draw Fee 09:26:17 CDT CPT-12562 PT/INR - LAB USE ONLY 13:32:49 ASSISTANT BASEBALL COACH CPT-49766 Venipuncture Draw Fee 13:32:49 ASSISTANT BASEBALL COACH CPT-74420 PT/INR - LAB USE ONLY 10:34:49 ASSISTANT BASEBALL COACH CPT-55509 Venipuncture Draw Fee 10:34:48 ASSISTANT BASEBALL COACH CPT-38363 PT/INR - LAB USE ONLY 09:22:03 ASSISTANT BASEBALL COACH CPT-12919 Venipuncture Draw Fee 09:22:02 ASSISTANT BASEBALL COACH CPT-03738 Hemoccult IFOBT - LAB USE ONLY 10:27:22 CDT CPT-03189 Venipuncture Draw Fee 08:27:08 CDT CPT-15981 Liver Profile - LAB USE ONLY 08:27:07 CDT 2 CPT-14196 Microalbumin - LAB USE ONLY 08:27:07 CDT 20 25/05/09 CPT-43780 PT/INR - LAB USE ONLY 08:27:07 CDT CPT-46716 HGBA1C - LAB USE ONLY 08:27:07 CDT CPT-24583 CBC - LAB USE ONLY 08:27:07 CDT CPT-72197 Venipuncture Draw Fee 11:09:14 CDT CPT-49023 Venipuncture Draw Fee 08:32:21 ASSISTANT BASEBALL COACH CPT-95453 Venipuncture Draw Fee 09:38:56 ASSISTANT BASEBALL COACH CPT-93321 No Charge Offi Visit 21:36:07 CDT 1 CPT-85472 Venipuncture Draw Fee 10:13:28 ASSISTANT BASEBALL COACH CPT-60398 Venipuncture Draw Fee 08:31:11 CDT CPT-46124 Aspir/Inject Med Joint 18:17:28 CDT CPT-75902 Venipuncture Draw Fee 10:13:30 CDT CPT-54369 Venipuncture Draw Fee 08:31:43 ASSISTANT BASEBALL COACH CPT-JTINJ Joint Injection 18:34:50 CDT CPT-85266 Knee 3V 12:25:09 CDT CPT-17214 Venipuncture Draw Fee 12:15:57 CDT CPT-060 Medical Surveillance Exam 21:31:43 CDT 2011 CPT-69946 Venipuncture Draw Fee 08:32:05 ASSISTANT BASEBALL COACH CPT-OV Office Visit 18:19:06 CDT
--- OUTSIDE RECORDS SUMMARY | 2020-01-18 13:35 | XMS REPORT | Clinical Summary ---
Author Author Admin, Mitch Leon Organization [facility] [employer] Address Unknown Phone Unavailable Allergies, Adverse Reactions, [...] 1/2 tab po q day ERICKA BARBA 12789598942 Active Renee Oconnor LPN Active FAMOTIDINE 20 MG ORAL TABLET by mouth twice a day 2017 FAMOTIDINE 93637360692 No Longer Active Mitch Urbina DO Active COLCRYS 0.6 MG ORAL TABLET 1 tab qid prn gout C OLCHICINE 77436262838 No Longer Active Mitch Urbina DO Active GLIMEPIRIDE 2 MG ORAL TABLET 1 po BID GLIMEPIRID E 19619330646 Active Renee Oconnor LPN Active KEFLEX 500 MG ORAL CAPSULE 1 po qid CEPHALEXI N 48861755575 No Longer Active Mitch Urbina DO Active LOSARTAN POTASSIUM 100 MG ORAL TABLET 1 pill by mouth daily, for blood pressure LOSARTAN POTASSIUM 40451623347 Active Renee Oconnor LPN Active AMLODIPINE BESYLATE 5 MG ORAL TABLET 1 tablet by mouth daily 201 01/20/04 AMLODIPINE BESYLATE 72874479720 No Longer Active Joe fulton APRN Active MITIGARE 0.6 MG ORAL CAPSULE 2 capsules at onset of go ut pain, then take one capsule at 1 hour if symptoms persist. COLCHICINE 59 978735543 Active Mitch Urbina DO Active COUMADIN 1 MG ORAL TABLET 2 tabs orally daily with the 5mg tab to equal 7mg daily WARFARIN SODIUM 57497996204 Active Mitch Urbina DO Active INVOKANA 100 MG ORAL TABLET 1 tablet orally daily CANAGLIFLOZIN 21920728664 Active Curly Coker MD Active MINOXIDIL 2.5 MG ORAL TABLET 1 tablet daily for high blood press ure MINOXIDIL 74648796121 Active Renee Oconnor LPN Active MECLIZINE HCL 25 MG ORAL TABLET 1 po tid 3 days, then 1/2 ta b tid 3 days MECLIZINE HCL 86295104259 No Longer Active Corey SEGURA Active ALLOPURINOL 300 MG ORAL TABLET Take 1 tablet by mouth daily 2012 ALLOPURINOL 37271785780 No Longer Active Corey SEGURA Active CLONIDINE HCL 0.1 MG ORAL TABLET 1 po bid 7 days, then 1/2 t ab po bid 7 days CLONIDINE HCL 66574160854 No Longer Active Corey SEGURA Active COUMADIN 5 MG ORAL TABLET 1 tab PO daily WARFAR IN SODIUM 85053709497 Active Curly Coker MD Active COUMADIN 4 MG ORAL TABLET 1 tablet daily WARFAR IN SODIUM 47993553889 No Longer Active Corey SEGURA Active POLYTRIM 08180-6.1 UNIT/ML-% OPHTHALMIC SOLUTION 1 rui p in affected eye every 3 hours while awake x 7 days POLYMYXIN B-TRIMETHOP RIM 62012419632 No Longer Active Corey SEGURA Active LOSARTAN POTASSIUM-HCTZ 100-12.5 MG ORAL TABLET 1 by m outh daily for high blood pressure LOSARTAN POTASSIUM-HCTZ 78822802033 No Longer A ctive Mitch Urbina DO Active LISINOPRIL-HYDROCHLOROTHIAZIDE 20-12.5 MG ORAL TABLET 1 tab by m outh daily LISINOPRIL-HYDROCHLOROTHIAZIDE 68489487906 No Longer Active Mitch Urbina DO Active LISINOPRIL 20 MG ORAL TABLET 1 tab po at HS LIS INOPRIL 04495321820 No Longer Active Mitch Urbina DO Active COUMADIN 5 MG ORAL TABLET 1 by mouth every other day 2 WARFARIN SODIUM 11319980431 No Longer Active Mitch Urbina DO Active COUMADIN 6 MG ORAL TABLET 1 by mouth every other day 2 WARFARIN SODIUM 24152102774 No Longer Active Mitch Urbina DO Active SIMVASTATIN 40 MG ORAL TABLET 1 tab daily at bedtime SIMVASTATIN 08548377389 Active Renee Oconnor LPN Active SIMVASTATIN 20 MG ORAL TABLET 1 tab daily at bedtime 2 SIMVASTATIN 59117951595 No Longer Active Mitch Urbina DO Active LOVENOX 100 MG/ML SUBCUTANEOUS SOLUTION One injection twice a da y ENOXAPARIN SODIUM 63642006673 No Longer Active Carmine Yusuf MD Active JANUVIA 50 MG ORAL TABLET Take one by mouth daily SITAGLIPTIN PHOSPHATE 81562025789 Active Mitch Urbina DO Active JANUVIA 100 MG ORAL TABLET 1/2 by mouth every day 2011 SITAGLIPTIN PHOSPHATE 49002883701 No Longer Active Bijal Segal RN Acti ve METFORMIN HCL 500 MG ORAL TABLET 2 by mouth twice daily METFORMIN HCL 11358599147 Active Renee Oconnor 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 Active COLCRYS 0.6 MG ORAL TABLET 1 po q 6 hours prn gout pain COLCHICINE 15240689286 No Longer Active Camila Reese Active LISINOPRIL 5 MG ORAL TABLET 1 by mouth every day 11/17 LISINOPRIL 49937363205 No Longer Active Nguyen Perez Active KLOR-CON 20 MEQ ORAL PACKET Take one by mouth daily 20 09/10/08 POTASSIUM CHLORIDE 03399396353 No Longer Active Nguyen Perez Active FUROSEMIDE 40 MG ORAL TABLET 1 by mouth daily F UROSEMIDE 79130189362 No Longer Active Nguyen Perez Active PROVIGIL 100 MG ORAL TABLET Take one by mouth daily 08/20/04 MODAFINIL 12238332066 No Longer Active Mitch Urbina DO Active BACTRIM DS 800-160 MG ORAL TABLET 1 tab by mouth twice daily 201 10/19/09 TRIMETHOPRIM-SULFAMETHOXAZOLE 86348187867 No Longer Active Elian Hays MD Active ADULT ASPIRIN LOW STRENGTH 81 MG ORAL TABLET DISINTEGR ATING 1 by mouth every daily ASPIRIN 39221233443 Active Mitch Urbina DO Ac tive METOPROLOL TARTRATE 50 MG ORAL TABLET 1 by mouth twice daily METOPROLOL TARTRATE 26057473847 Active Mitch Urbina DO Active BACTRIM DS 800-160 MG ORAL TABLET 1 tab by mouth twice daily 201 10/19/09 BACTRIM DS 800-160 MG ORAL TABLET 256154 TRIMETHOPRIM-SULFAMETHOXAZOLE Inactive PROVIGIL 100 MG ORAL TABLET Take one by mouth daily 08/20/04 PROVIGIL 100 MG ORAL TABLET 488421 MODAFINIL Inactive FUROSEMIDE 40 MG ORAL TABLET 1 by mouth daily FUROSEMIDE 40 MG ORAL TABLET 562756 FUROSEMIDE Inactive KLOR-CON 20 MEQ ORAL PACKET Take one by mouth daily 09/10/08 KLOR- CON 20 MEQ ORAL PACKET 6696031 POTASSIUM CHLORIDE Inactive LISINOPRIL 5 MG ORAL TABLET 1 by mouth every day 11/17 LISINOPRIL 5 MG ORAL TABLET 970681 LISINOPRIL Inactive COLCRYS 0.6 MG ORAL TABLET 1 po q 6 hours prn gout pain COLCRYS 0.6 MG ORAL TABLET 303687 COLCHICINE Inactive JANUVIA 100 MG ORAL TABLET 1/2 by mouth every day 2011 JANUVIA 100 MG ORAL TABLET SITAGLIPTIN PHOSPHATE Inactive SIMVASTATIN 20 MG ORAL TABLET 1 tab daily at bedtime 2 SIMVASTATIN 20 MG ORAL TABLET 915565 SIMVASTATIN Inactive COUMADIN 6 MG ORAL TABLET 1 by mouth every other day COUMADIN 6 MG ORAL TABLET 886424 WARFARIN SODIUM Inactive COUMADIN 5 MG ORAL TABLET 1 by mouth every other day COUMADIN 5 MG ORAL TABLET 928671 WARFARIN SODIUM Inactive LISINOPRIL 20 MG ORAL TABLET 1 tab po at HS LISINOPRIL 20 MG ORAL TABLET 853446 LISINOPRIL Inactive LISINOPRIL-HYDROCHLOROTHIAZIDE 20-12.5 MG ORAL TABLET 1 tab by m outh daily LISINOPRIL-HYDROCHLOROTHIAZIDE 20-12.5 MG ORAL TABLET 379656 LISINOPRIL-HYDROCHLOROTHIAZIDE Inactive POLYTRIM 88727-2.1 UNIT/ML-% OPHTHALMIC SOLUTION 1 rui p in affected eye every 3 hours while awake x 7 days POLYTRIM 1000 0-0.1 UNIT/ML-% OPHTHALMIC SOLUTION 022351 POLYMYXIN B-TRIMETHOPRIM Inactive COUMADIN 4 MG ORAL TABLET 1 tablet daily COUMADIN 4 MG ORAL TABLET 965763 WARFARIN SODIUM Inactive CLONIDINE HCL 0.1 MG ORAL TABLET 1 po bid 7 days, then 1/2 t ab po bid 7 days CLONIDINE HCL 0.1 MG ORAL TABLET 006578 CLONIDIN E HCL Inactive ALLOPURINOL 300 MG ORAL TABLET Take 1 tablet by mouth daily 2012 ALLOPURINOL 300 MG ORAL TABLET 909519 ALLOPURINOL I nactive MECLIZINE HCL 25 MG ORAL TABLET 1 po tid 3 days, then 1/2 ta b tid 3 days MECLIZINE HCL 25 MG ORAL TABLET 617522 MECLIZINE HCL Inactive AMLODIPINE BESYLATE 5 MG ORAL TABLET 1 tablet by mouth daily 201 01/20/04 AMLODIPINE BESYLATE 5 MG ORAL TABLET 970972 AMLODIPINE BESYLATE Inactive KEFLEX 500 MG ORAL CAPSULE 1 po qid K EFLEX 500 MG ORAL CAPSULE 850379 CEPHALEXIN Inactive COLCRYS 0.6 MG ORAL TABLET 1 tab qid prn gout COLCRYS 0.6 MG ORAL TABLET 998635 COLCHICINE Inactive FAMOTIDINE 20 MG ORAL TABLET by mouth twice a day 2017 FAMOTIDINE 20 MG ORAL TABLET 936522 FAMOTIDINE Inactive LOVENOX 100 MG/ML SUBCUTANEOUS SOLUTION One injection twice a da y LOVENOX 100 MG/ML SUBCUTANEOUS SOLUTION 628464 ENOXAPAR IN SODIUM Inactive Vital Signs Date [...] HGBA1C - Chemistry cholesterol, serum 136 mg/dL 800-090 1685/12/06 triglyceride, serum, fasting 247 mg/dL 30-200 HDL cholesterol, serum 41 mg/dL 32-60 LDL cholesterol, serum 46 mg/dL 0-130 aspartate aminotransferase (SGOT), serum 22 U/L 15-37 alanine aminotransferase (SGPT), serum 30 U/L 12-78 bilirubin, serum, total 0.80 mg/dL 0.00-1.00 hemoglobin A1C, blood, as % of total hemoglobin 6.4 % 4.3-6.0 Encounters Code Encounter Date Provider Facility CPT-13995 Level 3 Est. Patient 18:25:53 CDT Mitch luis [facility] CPT-96645 Level 3 Est. Patient 19:43:34 CDT Mitch luis [facility] CPT-30175 Level 4 Est. Patient 09:30:18 CDT Mitch W L janelle [facility] CPT-62723 Level 3 Est. Patient 15:10:14 CDT Joe kamara [facility] CPT-51450 Level 3 Est. Patient 15:03:46 CDT Joe kamara [facility]-85193 Level 3 Est. Patient 14:21:06 CDT Mitch Ambrose L janelle [facility]-56072 Level 3 Est. Patient 14:52:06 CDT Devonjustincarlitos kamara [facility]-60390 Level 3 Est. 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 Patient 09:37:15 CDT Mitch Ambrose L janelle [facility]-24481 Level 3 Est. Patient 17:01:00 CHOCOLATE COATER Mitch Ambrose L janelle [facility] CPT-22254 Level 3 Est. Patient 13:53:19 CHOCOLATE COATER Mitch Ambrose L janelle [facility] CPT-22489 Level 3 Est. Patient 19:19:37 CHOCOLATE COATER Mitch W L janelle [facility] CPT-78497 Level 3 Est. Patient 13:25:53 CHOCOLATE COATER Tavo toure MD [facility]-60791 Level 3 Est. Patient 18:17:28 CDT Mitch W L janelle [facility] CPT-00982 Level 3 Est. Patient 15:22:57 CDT Mitch W L janelle [facility] CPT-15607 Level 3 Est. Patient 18:21:50 CDT Mitch W L ee [facility] CPT-28637 Level 3 Est. Patient 18:20:38 CDT Mitch W L ee [facility] CPT-38488 Level 3 Est. Patient 15:37:55 CDT Mitch Arnol Nona janelle [facility] CPT-83566 Level 2 Est. Patient 15:54:44 CDT Carmine benton MD [facility] CPT-51389 Level 3 Est. Patient 21:46:01 CHOCOLATE COATER Mitch luis [facility] CPT-63487 Level 3 Est. Patient 22:15:50 CDT Mitch luis [facility] CPT-28066 Level 3 Est. Patient 10:48:15 CDT Mitch luis [facility] CPT-78453 Level 3 Est. Patient 23:20:57 CDT Tavo toure MD [facility] CPT-21207 Level 3 Est. Patient 16:26:13 CDT Mitch luis [facility] Procedures Code Procedure Name Date Entry Date Standard Desc ription CPT-JTINJ Asp/Joint Injection 18:47:02 CDT CPT-76135 Venipuncture Draw Fee 09:26:17 CDT CPT-82687 PT/INR - LAB USE ONLY 13:32:49 CHOCOLATE [employer] CPT-16050 Venipuncture Draw Fee 13:32:49 CHOCOLATE CO[employer] CPT-03311 PT/INR - LAB USE ONLY 10:34:49 CHOCOLATE COATER CPT-93069 Venipuncture Draw Fee 10:34:48 CHOCOLATE [employer] CPT-15697 PT/INR - LAB USE ONLY 09:22:03 CHOCOLATE [employer] CPT-07533 Venipuncture Draw Fee 09:22:02 CHOCOLATE CO[employer] CPT-24922 Hemoccult IFOBT - LAB USE ONLY 10:27:22 CDT CPT-54101 Venipuncture Draw Fee 08:27:08 CDT CPT-07623 Liver Profile - LAB USE ONLY 08:27:07 CDT 2 CPT-35465 Microalbumin - LAB USE ONLY 08:27:07 CDT 20 25/05/09 CPT-73567 PT/INR - LAB USE ONLY 08:27:07 CDT CPT-33078 HGBA1C - LAB USE ONLY 08:27:07 CDT CPT-47859 CBC - LAB USE ONLY 08:27:07 CDT CPT-16879 Venipuncture Draw Fee 11:09:14 CDT CPT-77454 Venipuncture Draw Fee 08:32:21 CHOCOLATE [employer]ATER CPT-85620 Venipuncture Draw Fee 09:38:56 [employer]OCOLATE [employer] CPT-92266 No Charge Offi Visit 21:36:07 CDT 1 CPT-17719 Venipuncture Draw Fee 10:13:28 CHOCOLATE [employer] CPT-56515 Venipuncture Draw Fee 08:31:11 CDT CPT-98691 Aspir/Inject Med Joint 18:17:28 CDT CPT-99395 Venipuncture Draw Fee 10:13:30 CDT CPT-09376 Venipuncture Draw Fee 08:31:43 CHOCOLATE COATER CPT-JTINJ Joint Injection 18:34:50 CDT CPT-18435 Knee 3V 12:25:09 CDT CPT-26632 Venipuncture Draw Fee 12:15:57 CDT CPT-060 Medical Surveillance Exam 21:31:43 CDT 2011 CPT-74892 Venipuncture Draw Fee 08:32:05 CHOCOLATE COATER CPT-OV Office Visit 18:19:06 CDT
--- OUTSIDE RECORDS SUMMARY | 2020-01-18 13:36 | XMS REPORT | Clinical Summary ---
[...] Coronary atherosclerosis of unspecified type of vessel, little traverse or graft EDEMA 782.3 Resolved Mitch [...] Mitch W Carlitos DO Cellulitis ICD-682.9 Inactive Imtch W Carlitos DO 10/23 Medication List Medication Instructions Start Date Stop Date Generic Name NDC Status Provider Patient Instruction PROVIGIL 200 MG ORAL TABLET 1/2 tab po q day ERICKA BARBA [id number] Active Renee Oconnor LPN Active FAMOTIDINE 20 MG ORAL TABLET by mouth twice a day 2017 FAMOTIDINE 84679482468 No Longer Active Mitch Urbina DO Active COLCRYS 0.6 MG ORAL TABLET 1 tab qid prn gout C OLCHICINE 63137026367 No Longer Active Mitch Urbina DO Active GLIMEPIRIDE 2 MG ORAL TABLET 1 po BID GLIMEPIRID E 76561626916 Active Renee Oconnor LPN Active KEFLEX 500 MG ORAL CAPSULE 1 po qid CEPHALEXI N 13964970199 No Longer Active Mitch Urbina DO Active LOSARTAN POTASSIUM 100 MG ORAL TABLET 1 pill by mouth daily, for blood pressure LOSARTAN POTASSIUM 47441026032 Active Renee Oconnor LPN Active AMLODIPINE BESYLATE 5 MG ORAL TABLET 1 tablet by mouth daily 201 01/20/04 AMLODIPINE BESYLATE 85744680597 No Longer Active Joe fulton APRN Active MITIGARE 0.6 MG ORAL CAPSULE 2 capsules at onset of go ut pain, then take one capsule at 1 hour if symptoms persist. COLCHICINE 59 497323283 Active Mitch Urbina DO Active COUMADIN 1 MG ORAL TABLET 2 tabs orally daily with the 5mg tab to equal 7mg daily WARFARIN SODIUM 72200696493 Active Mitch Urbina DO Active INVOKANA 100 MG ORAL TABLET 1 tablet orally daily CANAGLIFLOZIN 86154164471 Active Curly Coker MD Active MINOXIDIL 2.5 MG ORAL TABLET 1 tablet daily for high blood press ure MINOXIDIL 99056704629 Active Renee Oconnor LPN Active MECLIZINE HCL 25 MG ORAL TABLET 1 po tid 3 days, then 1/2 ta b tid 3 days MECLIZINE HCL 49571389243 No Longer Active Corey SEGURA Active ALLOPURINOL 300 MG ORAL TABLET Take 1 tablet by mouth daily 2012 ALLOPURINOL 23083607285 No Longer Active Corey SEGURA Active CLONIDINE HCL 0.1 MG ORAL TABLET 1 po bid 7 days, then 1/2 t ab po bid 7 days CLONIDINE HCL 41124821617 No Longer Active Corey SEGURA Active COUMADIN 5 MG ORAL TABLET 1 tab PO daily WARFAR IN SODIUM 79135370049 Active Curly Coker MD Active COUMADIN 4 MG ORAL TABLET 1 tablet daily WARFAR IN SODIUM 28520619438 No Longer Active Corey SEGURA Active POLYTRIM 61625-6.1 UNIT/ML-% OPHTHALMIC SOLUTION 1 rui p in affected eye every 3 hours while awake x 7 days POLYMYXIN B-TRIMETHOP RIM 64265746893 No Longer Active Corey SEGURA Active LOSARTAN POTASSIUM-HCTZ 100-12.5 MG ORAL TABLET 1 by m outh daily for high blood pressure LOSARTAN POTASSIUM-HCTZ 60403014891 No Longer A ctive Mitch Urbina DO Active LISINOPRIL-HYDROCHLOROTHIAZIDE 20-12.5 MG ORAL TABLET 1 tab by m outh daily LISINOPRIL-HYDROCHLOROTHIAZIDE 76170940153 No Longer Active Mitch Urbina DO Active LISINOPRIL 20 MG ORAL TABLET 1 tab po at HS LIS INOPRIL 13881509422 No Longer Active Mitch Urbina DO Active COUMADIN 5 MG ORAL TABLET 1 by mouth every other day 2 WARFARIN SODIUM 59494931564 No Longer Active Mitch Urbina DO Active COUMADIN 6 MG ORAL TABLET 1 by mouth every other day 2 WARFARIN SODIUM 12952837603 No Longer Active Mitch Urbina DO Active SIMVASTATIN 40 MG ORAL TABLET 1 tab daily at bedtime SIMVASTATIN 37922705787 Active Renee Oconnor LPN Active SIMVASTATIN 20 MG ORAL TABLET 1 tab daily at bedtime 2 SIMVASTATIN 57029827397 No Longer Active Mitch Urbina DO Active LOVENOX 100 MG/ML SUBCUTANEOUS SOLUTION One injection twice a da y ENOXAPARIN SODIUM 10122446185 No Longer Active Carmine Yusuf MD Active JANUVIA 50 MG ORAL TABLET Take one by mouth daily SITAGLIPTIN PHOSPHATE 02214252936 Active Mitch Urbina DO Active JANUVIA 100 MG ORAL TABLET 1/2 by mouth every day 2011 SITAGLIPTIN PHOSPHATE 50932722454 No Longer Active Bijal Segal RN Acti ve METFORMIN HCL 500 MG ORAL TABLET 2 by mouth twice daily METFORMIN HCL 39947984395 Active Renee Oconnor FIRST AID DIRECTOR Active COLCRYS 0.6 MG ORAL TABLET 1 po q 6 hours prn gout pain COLCHICINE 60620195338 No Longer Active Camila Reese Active LISINOPRIL 5 MG ORAL TABLET 1 by mouth every day 11/17 LISINOPRIL 25517616216 No Longer Active Nguyen Perez Active KLOR-CON 20 MEQ ORAL PACKET Take one by mouth daily 20 09/10/08 POTASSIUM CHLORIDE 31485985874 No Longer Active Nguyen Perez Active FUROSEMIDE 40 MG ORAL TABLET 1 by mouth daily F UROSEMIDE 47330687875 No Longer Active Nguyen Perez Active PROVIGIL 100 MG ORAL TABLET Take one by mouth daily 08/20/04 MODAFINIL 53651913964 No Longer Active Mitch Urbina DO Active BACTRIM DS 800-160 MG ORAL TABLET 1 tab by mouth twice daily 201 10/19/09 TRIMETHOPRIM-SULFAMETHOXAZOLE 55089156240 No Longer Active Elian Hays MD Active ADULT ASPIRIN LOW STRENGTH 81 MG ORAL TABLET DISINTEGR ATING 1 by mouth every daily ASPIRIN 85430727261 Active Mitch Urbina DO Ac tive METOPROLOL TARTRATE 50 MG ORAL TABLET 1 by mouth twice daily METOPROLOL TARTRATE 24075093733 Active Mitch Urbina DO Active BACTRIM DS 800-160 MG ORAL TABLET 1 tab by mouth twice daily 201 10/19/09 BACTRIM DS 800-160 MG ORAL TABLET 446598 TRIMETHOPRIM-SULFAMETHOXAZOLE Inactive PROVIGIL 100 MG ORAL TABLET Take one by mouth daily 08/20/04 PROVIGIL 100 MG ORAL TABLET 032947 MODAFINIL Inactive FUROSEMIDE 40 MG ORAL TABLET 1 by mouth daily FUROSEMIDE 40 MG ORAL TABLET 226934 FUROSEMIDE Inactive KLOR-CON 20 MEQ ORAL PACKET Take one by mouth daily 09/10/08 KLOR- CON 20 MEQ ORAL PACKET 4310150 POTASSIUM CHLORIDE Inactive LISINOPRIL 5 MG ORAL TABLET 1 by mouth every day 11/17 LISINOPRIL 5 MG ORAL TABLET 739939 LISINOPRIL Inactive COLCRYS 0.6 MG ORAL TABLET 1 po q 6 hours prn gout pain COLCRYS 0.6 MG ORAL TABLET 025864 COLCHICINE Inactive JANUVIA 100 MG ORAL TABLET 1/2 by mouth every day 2011 JANUVIA 100 MG ORAL TABLET SITAGLIPTIN PHOSPHATE Inactive SIMVASTATIN 20 MG ORAL TABLET 1 tab daily at bedtime 2 SIMVASTATIN 20 MG ORAL TABLET 061030 SIMVASTATIN Inactive COUMADIN 6 MG ORAL TABLET 1 by mouth every other day COUMADIN 6 MG ORAL TABLET 401732 WARFARIN SODIUM Inactive COUMADIN 5 MG ORAL TABLET 1 by mouth every other day COUMADIN 5 MG ORAL TABLET 481194 WARFARIN SODIUM Inactive LISINOPRIL 20 MG ORAL TABLET 1 tab po at HS LISINOPRIL 20 MG ORAL TABLET 545318 LISINOPRIL Inactive LISINOPRIL-HYDROCHLOROTHIAZIDE 20-12.5 MG ORAL TABLET 1 tab by m outh daily LISINOPRIL-HYDROCHLOROTHIAZIDE 20-12.5 MG ORAL TABLET 418126 LISINOPRIL-HYDROCHLOROTHIAZIDE Inactive POLYTRIM 25079-4.1 UNIT/ML-% OPHTHALMIC SOLUTION 1 rui p in affected eye every 3 hours while awake x 7 days POLYTRIM 1000 0-0.1 UNIT/ML-% OPHTHALMIC SOLUTION 783352 POLYMYXIN B-TRIMETHOPRIM Inactive COUMADIN 4 MG ORAL TABLET 1 tablet daily COUMADIN 4 MG ORAL TABLET 066598 WARFARIN SODIUM Inactive CLONIDINE HCL 0.1 MG ORAL TABLET 1 po bid 7 days, then 1/2 t ab po bid 7 days CLONIDINE HCL 0.1 MG ORAL TABLET 943002 CLONIDIN E HCL Inactive ALLOPURINOL 300 MG ORAL TABLET Take 1 tablet by mouth daily 2012 ALLOPURINOL 300 MG ORAL TABLET 807353 ALLOPURINOL I nactive MECLIZINE HCL 25 MG ORAL TABLET 1 po tid 3 days, then 1/2 ta b tid 3 days MECLIZINE HCL 25 MG ORAL TABLET 602999 MECLIZINE HCL Inactive AMLODIPINE BESYLATE 5 MG ORAL TABLET 1 tablet by mouth daily 201 01/20/04 AMLODIPINE BESYLATE 5 MG ORAL TABLET 535427 AMLODIPINE BESYLATE Inactive KEFLEX 500 MG ORAL CAPSULE 1 po qid K EFLEX 500 MG ORAL CAPSULE 421125 CEPHALEXIN Inactive COLCRYS 0.6 MG ORAL TABLET 1 tab qid prn gout COLCRYS 0.6 MG ORAL TABLET 309177 COLCHICINE Inactive FAMOTIDINE 20 MG ORAL TABLET by mouth twice a day 2017 FAMOTIDINE 20 MG ORAL TABLET 329853 FAMOTIDINE Inactive LOVENOX 100 MG/ML SUBCUTANEOUS SOLUTION One injection twice a da y LOVENOX 100 MG/ML SUBCUTANEOUS SOLUTION 983041 ENOXAPAR IN SODIUM Inactive Vital Signs Date [...] 130-200 Encounters Code Encounter Date Provider Facility CPT-10316 Level 3 Est. Patient 18:25:53 CDT Mitch luis [facility] CPT-88575 Level 3 Est. Patient 19:43:34 CDT Mitch luis [facility] CPT-60375 Level 4 Est. Patient 09:30:18 CDT Mitch W L janelle [facility] CPT-82161 Level 3 Est. Patient 15:10:14 CDT Joe kamara [facility]-77435 Level 3 Est. Patient 15:03:46 CDT Joe kamara [facility]-64685 Level 3 Est. Patient 14:21:06 CDT Mitch Ambrose L janelle [facility]-58222 Level 3 Est. Patient 14:52:06 CDT Devonsonya Jason kamara [facility] CPT-87931 Level 3 Est. 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-99429 Level 3 Est. Patient 09:37:15 CDT Mitch Ambrose L janelle [facility]-58503 Level 3 Est. Patient 17:01:00 CHOCOLATE REFINING ROLLER Mitch luis [facility] CPT-11506 Level 3 Est. Patient 13:53:19 CHOCOLATE REFINING ROLLER Mitch Ambrose L janelle [facility] CPT-25266 Level 3 Est. Patient 19:19:37 CHOCOLATE REFINING ROLLER Mitch W L janelle [facility] CPT-48246 Level 3 Est. Patient 13:25:53 CHOCOLATE REFINING ROLLER Tavo toure MD [facility]-52333 Level 3 Est. Patient 18:17:28 CDT Mitch W Nona luis [facility] CPT-07485 Level 3 Est. Patient 15:22:57 CDT Mitch Ambrose L janelle [facility] CPT-32958 Level 3 Est. Patient 18:21:50 CDT Mitch W L ee [facility] CPT-04122 Level 3 Est. Patient 18:20:38 CDT Mitch W L ee [facility] CPT-95846 Level 3 Est. Patient 15:37:55 CDT Mitch luis [facility] CPT-78722 Level 2 Est. Patient 15:54:44 CDT Carmine benton MD [facility] CPT-77562 Level 3 Est. Patient 21:46:01 CHOCOLATE REFINING ROLLER Mitch luis [facility] CPT-15422 Level 3 Est. Patient 22:15:50 CDT Mitch luis [facility] CPT-02595 Level 3 Est. Patient 10:48:15 CDT Mitch luis [facility] CPT-91854 Level 3 Est. Patient 23:20:57 CDT Tavo toure MD [facility] CPT-85650 Level 3 Est. Patient 16:26:13 CDT Mitch luis [facility] Procedures Code Procedure Name Date Entry Date Standard Desc ription CPT-JTINJ Asp/Joint Injection 18:47:02 CDT CPT-77771 Venipuncture Draw Fee 09:26:17 CDT CPT-35909 PT/INR - LAB USE ONLY 13:32:49 CHOCOLATE REFINING ROLLER CPT-88385 Venipuncture Draw Fee 13:32:49 CHOCOLATE REFINING ROLLER CPT-15233 PT/INR - LAB USE ONLY 10:34:49 CHOCOLATE REFINING ROLLER CPT-31825 Venipuncture Draw Fee 10:34:48 CHOCOLATE REFINING ROLLER CPT-42885 PT/INR - LAB USE ONLY 09:22:03 CHOCOLATE REFINING ROLLER CPT-76089 Venipuncture Draw Fee 09:22:02 CHOCOLATE REFINING ROLLER CPT-57878 Hemoccult IFOBT - LAB USE ONLY 10:27:22 CDT CPT-90220 Venipuncture Draw Fee 08:27:08 CDT CPT-32240 Liver Profile - LAB USE ONLY 08:27:07 CDT 2 CPT-80551 Microalbumin - LAB USE ONLY 08:27:07 CDT 20 25/05/09 CPT-59845 PT/INR - LAB USE ONLY 08:27:07 CDT CPT-55365 HGBA1C - LAB USE ONLY 08:27:07 CDT CPT-98727 CBC - LAB USE ONLY 08:27:07 CDT CPT-03563 Venipuncture Draw Fee 11:09:14 CDT CPT-37155 Venipuncture Draw Fee 08:32:21 CHOCOLATE REFINING ROLLER CPT-14049 Venipuncture Draw Fee 09:38:56 CHOCOLATE REFINING ROLLER CPT-02898 No Charge Offi Visit 21:36:07 CDT 1 CPT-22755 Venipuncture Draw Fee 10:13:28 CHOCOLATE REFINING ROLLER CPT-76572 Venipuncture Draw Fee 08:31:11 CDT CPT-64700 Aspir/Inject Med Joint 18:17:28 CDT CPT-01053 Venipuncture Draw Fee 10:13:30 CDT CPT-99769 Venipuncture Draw Fee 08:31:43 CHOCOLATE REFINING ROLLER CPT-JTINJ Joint Injection 18:34:50 CDT CPT-02731 Knee 3V 12:25:09 CDT CPT-92575 Venipuncture Draw Fee 12:15:57 CDT CPT-060 Medical Surveillance Exam 21:31:43 CDT 2011 CPT-22708 Venipuncture Draw Fee 08:32:05 CHOCOLATE REFINING ROLLER 2011/11/ 23 CPT-OV Office Visit 18:19:06 CDT
--- OUTSIDE RECORDS SUMMARY | 2020-01-18 13:36 | XMS REPORT | Clinical Summary ---
Author Author Admin, Mitch Leon Organization [facility] [address] Address Unknown Phone Unavailable Allergies, Adverse Reactions, [...] of vessel, stebbins or graft EDEMA 782.3 Resolved Mitch Urbina [...] 1/2 tab po q day ERICKA BARBA 58820379298 Active Renee Oconnor LPN Active FAMOTIDINE 20 MG ORAL TABLET by mouth twice a day 2017 FAMOTIDINE 12393715099 No Longer Active Mitch Urbina DO Active COLCRYS 0.6 MG ORAL TABLET 1 tab qid prn gout C OLCHICINE 43266524641 No Longer Active Mitch Urbina DO Active GLIMEPIRIDE 2 MG ORAL TABLET 1 po BID GLIMEPIRID E 15546207678 Active Renee Oconnor LPN Active KEFLEX 500 MG ORAL CAPSULE 1 po qid CEPHALEXI N 60370651995 No Longer Active Mitch Urbina DO Active LOSARTAN POTASSIUM 100 MG ORAL TABLET 1 pill by mouth daily, for blood pressure LOSARTAN POTASSIUM 35055859429 Active Renee Oconnor LPN Active AMLODIPINE BESYLATE 5 MG ORAL TABLET 1 tablet by mouth daily 201 01/20/04 AMLODIPINE BESYLATE 98356625503 No Longer Active Joe fulton APRN Active MITIGARE 0.6 MG ORAL CAPSULE 2 capsules at onset of go ut pain, then take one capsule at 1 hour if symptoms persist. COLCHICINE 59 818598766 Active Mitch Urbina DO Active COUMADIN 1 MG ORAL TABLET 2 tabs orally daily with the 5mg tab to equal 7mg daily WARFARIN SODIUM 80608436631 Active Mitch Urbina DO Active INVOKANA 100 MG ORAL TABLET 1 tablet orally daily CANAGLIFLOZIN 79465962567 Active Curly Coker MD Active MINOXIDIL 2.5 MG ORAL TABLET 1 tablet daily for high blood press ure MINOXIDIL 23733636801 Active Renee Oconnor LPN Active MECLIZINE HCL 25 MG ORAL TABLET 1 po tid 3 days, then 1/2 ta b tid 3 days MECLIZINE HCL 19047931353 No Longer Active Corey SEGURA Active ALLOPURINOL 300 MG ORAL TABLET Take 1 tablet by mouth daily 2012 ALLOPURINOL 41830077954 No Longer Active Corey SEGURA Active CLONIDINE HCL 0.1 MG ORAL TABLET 1 po bid 7 days, then 1/2 t ab po bid 7 days CLONIDINE HCL 87611857115 No Longer Active Corey SEGURA Active COUMADIN 5 MG ORAL TABLET 1 tab PO daily WARFAR IN SODIUM 66795387693 Active Curly Coker MD Active COUMADIN 4 MG ORAL TABLET 1 tablet daily WARFAR IN SODIUM 97209270106 No Longer Active Corey SEGURA Active POLYTRIM 29235-2.1 UNIT/ML-% OPHTHALMIC SOLUTION 1 rui p in affected eye every 3 hours while awake x 7 days POLYMYXIN B-TRIMETHOP RIM 01181349525 No Longer Active Corey SEGURA Active LOSARTAN POTASSIUM-HCTZ 100-12.5 MG ORAL TABLET 1 by m outh daily for high blood pressure LOSARTAN POTASSIUM-HCTZ 21336110182 No Longer A ctive Mitch Urbina DO Active LISINOPRIL-HYDROCHLOROTHIAZIDE 20-12.5 MG ORAL TABLET 1 tab by m outh daily LISINOPRIL-HYDROCHLOROTHIAZIDE 56469302986 No Longer Active Mitch Urbina DO Active LISINOPRIL 20 MG ORAL TABLET 1 tab po at HS LIS INOPRIL 94676341856 No Longer Active Mitch Urbina DO Active COUMADIN 5 MG ORAL TABLET 1 by mouth every other day 2 WARFARIN SODIUM 72809354410 No Longer Active Mitch Urbina DO Active COUMADIN 6 MG ORAL TABLET 1 by mouth every other day 2 WARFARIN SODIUM 27441606922 No Longer Active Mitch Urbina DO Active SIMVASTATIN 40 MG ORAL TABLET 1 tab daily at bedtime SIMVASTATIN 04150160441 Active Renee Oconnor LPN Active SIMVASTATIN 20 MG ORAL TABLET 1 tab daily at bedtime 2 SIMVASTATIN 78265025165 No Longer Active Mitch Urbina DO Active LOVENOX 100 MG/ML SUBCUTANEOUS SOLUTION One injection twice a da y ENOXAPARIN SODIUM 54354753840 No Longer Active Carmine Yusuf MD Active JANUVIA 50 MG ORAL TABLET Take one by mouth daily SITAGLIPTIN PHOSPHATE 12040051825 Active Mitch Urbina DO Active JANUVIA 100 MG ORAL TABLET 1/2 by mouth every day 2011 SITAGLIPTIN PHOSPHATE 05229656818 No Longer Active Bijal Segal RN Acti ve METFORMIN HCL 500 MG ORAL TABLET 2 by mouth twice daily METFORMIN HCL 46565691332 Active Renee Oconnor SENIOR TECHNICAL BUSINESS ANALYST Active COLCRYS 0.6 MG ORAL TABLET 1 po q 6 hours prn gout pain COLCHICINE 37599015001 No Longer Active Camila Reese Active LISINOPRIL 5 MG ORAL TABLET 1 by mouth every day 11/17 LISINOPRIL 31532640675 No Longer Active Nguyen Perez Active KLOR-CON 20 MEQ ORAL PACKET Take one by mouth daily 20 09/10/08 POTASSIUM CHLORIDE 45636377597 No Longer Active Nguyen Perez Active FUROSEMIDE 40 MG ORAL TABLET 1 by mouth daily F UROSEMIDE 51823852152 No Longer Active Nguyen Perez Active PROVIGIL 100 MG ORAL TABLET Take one by mouth daily 08/20/04 MODAFINIL 13345593509 No Longer Active Mitch Urbina DO Active BACTRIM DS 800-160 MG ORAL TABLET 1 tab by mouth twice daily 201 10/19/09 TRIMETHOPRIM-SULFAMETHOXAZOLE 99048443512 No Longer Active Elian Hays MD Active ADULT ASPIRIN LOW STRENGTH 81 MG ORAL TABLET DISINTEGR ATING 1 by mouth every daily ASPIRIN 70998139814 Active Mitch Urbina DO Ac tive METOPROLOL TARTRATE 50 MG ORAL TABLET 1 by mouth twice daily METOPROLOL TARTRATE 92496737306 Active Mitch Urbina DO Active BACTRIM DS 800-160 MG ORAL TABLET 1 tab by mouth twice daily 201 10/19/09 BACTRIM DS 800-160 MG ORAL TABLET 506663 TRIMETHOPRIM-SULFAMETHOXAZOLE Inactive PROVIGIL 100 MG ORAL TABLET Take one by mouth daily 08/20/04 PROVIGIL 100 MG ORAL TABLET 213574 MODAFINIL Inactive FUROSEMIDE 40 MG ORAL TABLET 1 by mouth daily FUROSEMIDE 40 MG ORAL TABLET 092528 FUROSEMIDE Inactive KLOR-CON 20 MEQ ORAL PACKET Take one by mouth daily 09/10/08 KLOR- CON 20 MEQ ORAL PACKET 6430750 POTASSIUM CHLORIDE Inactive LISINOPRIL 5 MG ORAL TABLET 1 by mouth every day 11/17 LISINOPRIL 5 MG ORAL TABLET 339372 LISINOPRIL Inactive COLCRYS 0.6 MG ORAL TABLET 1 po q 6 hours prn gout pain COLCRYS 0.6 MG ORAL TABLET 978236 COLCHICINE Inactive JANUVIA 100 MG ORAL TABLET 1/2 by mouth every day 2011 JANUVIA 100 MG ORAL TABLET SITAGLIPTIN PHOSPHATE Inactive SIMVASTATIN 20 MG ORAL TABLET 1 tab daily at bedtime 2 SIMVASTATIN 20 MG ORAL TABLET 712544 SIMVASTATIN Inactive COUMADIN 6 MG ORAL TABLET 1 by mouth every other day COUMADIN 6 MG ORAL TABLET 478118 WARFARIN SODIUM Inactive COUMADIN 5 MG ORAL TABLET 1 by mouth every other day COUMADIN 5 MG ORAL TABLET 801704 WARFARIN SODIUM Inactive LISINOPRIL 20 MG ORAL TABLET 1 tab po at HS LISINOPRIL 20 MG ORAL TABLET 139929 LISINOPRIL Inactive LISINOPRIL-HYDROCHLOROTHIAZIDE 20-12.5 MG ORAL TABLET 1 tab by m outh daily LISINOPRIL-HYDROCHLOROTHIAZIDE 20-12.5 MG ORAL TABLET 554313 LISINOPRIL-HYDROCHLOROTHIAZIDE Inactive POLYTRIM 19228-8.1 UNIT/ML-% OPHTHALMIC SOLUTION 1 rui p in affected eye every 3 hours while awake x 7 days POLYTRIM 1000 0-0.1 UNIT/ML-% OPHTHALMIC SOLUTION 819212 POLYMYXIN B-TRIMETHOPRIM Inactive COUMADIN 4 MG ORAL TABLET 1 tablet daily COUMADIN 4 MG ORAL TABLET 119531 WARFARIN SODIUM Inactive CLONIDINE HCL 0.1 MG ORAL TABLET 1 po bid 7 days, then 1/2 t ab po bid 7 days CLONIDINE HCL 0.1 MG ORAL TABLET 836359 CLONIDIN E HCL Inactive ALLOPURINOL 300 MG ORAL TABLET Take 1 tablet by mouth daily 2012 ALLOPURINOL 300 MG ORAL TABLET 330508 ALLOPURINOL I nactive MECLIZINE HCL 25 MG ORAL TABLET 1 po tid 3 days, then 1/2 ta b tid 3 days MECLIZINE HCL 25 MG ORAL TABLET 993178 MECLIZINE HCL Inactive AMLODIPINE BESYLATE 5 MG ORAL TABLET 1 tablet by mouth daily 201 01/20/04 AMLODIPINE BESYLATE 5 MG ORAL TABLET 903262 AMLODIPINE BESYLATE Inactive KEFLEX 500 MG ORAL CAPSULE 1 po qid K EFLEX 500 MG ORAL CAPSULE 483395 CEPHALEXIN Inactive COLCRYS 0.6 MG ORAL TABLET 1 tab qid prn gout COLCRYS 0.6 MG ORAL TABLET 778159 COLCHICINE Inactive FAMOTIDINE 20 MG ORAL TABLET by mouth twice a day 2017 FAMOTIDINE 20 MG ORAL TABLET 413904 FAMOTIDINE Inactive LOVENOX 100 MG/ML SUBCUTANEOUS SOLUTION One injection twice a da y LOVENOX 100 MG/ML SUBCUTANEOUS SOLUTION 923868 ENOXAPAR IN SODIUM Inactive Vital Signs Date [...] 247 mg/dL 30-200 cholesterol, serum 136 mg/dL 232-252 9502/12/06 alanine aminotransferase (SGPT), serum 30 U/L 12-78 bilirubin, serum, total 0.80 mg/dL 0.00-1.00 hemoglobin A1C, blood, as % of total hemoglobin 6.4 % 4.3-6.0 Encounters Code Encounter Date Provider Facility CPT-47516 Level 3 Est. Patient 18:25:[address] [facility] CPT-22111 Level 3 Est. Patient 19:43:[address] [facility] CPT-09345 Level 4 Est. Patient 09:30:18 CDT Mitch W L janelle [facility] CPT-55326 Level 3 Est. Patient 15:10:14 CDT Joe kamara [facility] CPT-55635 Level 3 Est. Patient 15:03:46 CDT Joe kamara [facility]-22126 Level 3 Est. Patient 14:21:06 CDT Mitch Ambrose L janelle [facility]-75226 Level 3 Est. Patient 14:52:06 CDT Devonjustincarlitos kamara [facility]-66514 Level 3 Est. Patient 09:34:30 TELEMARKETING FUNDRAISER Mitch Ambrose L janelle [facility]-43086 Level 3 Est. Patient 09:37:15 CDT Mitch Ambrose L janelle [facility]-17984 Level 3 Est. Patient 17:01:00 TELEMARKETING FUNDRAISER Mitch Ambrose L janelle [facility] CPT-36003 Level 3 Est. Patient 13:53:19 TELEMARKETING FUNDRAISER Mitch Ambrose L janelle [facility] CPT-30052 Level 3 Est. Patient 19:19:37 TELEMARKETING FUNDRAISER Mitch W L janelle [facility] CPT-01147 Level 3 Est. Patient 13:25:53 TELEMARKETING FUNDRAISER Tavo toure MD [facility]-46756 Level 3 Est. Patient 18:17:28 CDT Mitch W L janelle [facility] CPT-71292 Level 3 Est. Patient 15:22:57 CDT Mitch W L janelle [facility] CPT-65237 Level 3 Est. Patient 18:21:50 CDT Mitch W L ee [facility] CPT-43612 Level 3 Est. Patient 18:20:38 CDT Mitch W L ee [facility] CPT-22513 Level 3 Est. Patient 15:37:55 CDT Mitch Arnol Nona janelle [facility] CPT-90854 Level 2 Est. Patient 15:54:44 CDT Carmine benton MD [facility] CPT-84547 Level 3 Est. Patient 21:46:01 TELEMARKETING FUNDRAISER Mithc luis [facility] CPT-64393 Level 3 Est. Patient 22:15:50 CDT Mitch luis [facility] CPT-58915 Level 3 Est. Patient 10:48:15 CDT Mitch luis [facility] CPT-07659 Level 3 Est. Patient 23:20:57 CDT Tavo toure MD [facility] CPT-97965 Level 3 Est. Patient 16:26:13 CDT Mitch luis [facility] Procedures Code Procedure Name Date Entry Date Standard Desc ription CPT-JTINJ Asp/Joint Injection 18:47:02 CDT CPT-87823 Venipuncture Draw Fee 09:26:17 CDT CPT-05264 PT/INR - LAB USE ONLY 13:32:49 TELEMARKETING FUNDRAISER CPT-39244 Venipuncture Draw Fee 13:32:49 TELEMARKETING FUNDRAISER CPT-04342 PT/INR - LAB USE ONLY 10:34:49 TELEMARKETING FUNDRAISER CPT-89478 Venipuncture Draw Fee 10:34:48 TELEMARKETING FUNDRAISER CPT-27603 PT/INR - LAB USE ONLY 09:22:03 TELEMARKETING FUNDRAISER CPT-32557 Venipuncture Draw Fee 09:22:02 TELEMARKETING FUNDRAISER CPT-43510 Hemoccult IFOBT - LAB USE ONLY 10:27:22 CDT CPT-90884 Venipuncture Draw Fee 08:27:08 CDT CPT-95078 Liver Profile - LAB USE ONLY 08:27:07 CDT 2 CPT-48958 Microalbumin - LAB USE ONLY 08:27:07 CDT 20 25/05/09 CPT-92358 PT/INR - LAB USE ONLY 08:27:07 CDT CPT-69607 HGBA1C - LAB USE ONLY 08:27:07 CDT CPT-74599 CBC - LAB USE ONLY 08:27:07 CDT CPT-75609 Venipuncture Draw Fee 11:09:14 CDT CPT-37009 Venipuncture Draw Fee 08:32:21 TELEMARKETING FUNDRAISER CPT-82469 Venipuncture Draw Fee 09:38:56 TELEMARKETING FUNDRAISER CPT-88320 No Charge Offi Visit 21:36:07 CDT 1 CPT-59739 Venipuncture Draw Fee 10:13:28 TELEMARKETING FUNDRAISER CPT-73423 Venipuncture Draw Fee 08:31:11 CDT CPT-12987 Aspir/Inject Med Joint 18:17:28 CDT CPT-49007 Venipuncture Draw Fee 10:13:30 CDT CPT-75179 Venipuncture Draw Fee 08:31:43 TELEMARKETING FUNDRAISER CPT-JTINJ Joint Injection 18:34:50 CDT CPT-76763 Knee 3V 12:25:09 CDT CPT-37624 Venipuncture Draw Fee 12:15:57 CDT CPT-060 Medical Surveillance Exam 21:31:43 CDT 2011 CPT-27964 Venipuncture Draw Fee 08:32:05 TELEMARKETING FUNDRAISER CPT-OV Office Visit 18:19:06 CDT
--- OUTSIDE RECORDS SUMMARY | 2020-01-18 13:36 | XMS REPORT | Clinical Summary ---
[...] Coronary atherosclerosis of unspecified type of vessel, bill moore's slough or graft EDEMA 782.3 Resolved Mitch Urbina [...] OLECRANON BURSITIS, RIGHT 726.33 Resolved Br ucponce Uribna DO Olecranon bursitis UNSPECIFIED ANEMIA 285.9 Resolved [...] 1/2 tab po q day ERICKA BARBA 55661012580 Active Renee Oconnor LPN Active FAMOTIDINE 20 MG ORAL TABLET by mouth twice a day 2017 FAMOTIDINE 37036329383 No Longer Active Mitch Urbina DO Active COLCRYS 0.6 MG ORAL TABLET 1 tab qid prn gout C OLCHICINE 13478957846 No Longer Active Mitch Urbina DO Active GLIMEPIRIDE 2 MG ORAL TABLET 1 po BID GLIMEPIRID E 37235903955 Active Renee Oconnor LPN Active KEFLEX 500 MG ORAL CAPSULE 1 po qid CEPHALEXI N 67063949180 No Longer Active Mitch Urbina DO Active LOSARTAN POTASSIUM 100 MG ORAL TABLET 1 pill by mouth daily, for blood pressure LOSARTAN POTASSIUM 08139033332 Active Renee Oconnor LPN Active AMLODIPINE BESYLATE 5 MG ORAL TABLET 1 tablet by mouth daily 201 01/20/04 AMLODIPINE BESYLATE 41012410123 No Longer Active Joe fulton APRN Active MITIGARE 0.6 MG ORAL CAPSULE 2 capsules at onset of go ut pain, then take one capsule at 1 hour if symptoms persist. COLCHICINE 59 427865309 Active Mitch Urbina DO Active COUMADIN 1 MG ORAL TABLET 2 tabs orally daily with the 5mg tab to equal 7mg daily WARFARIN SODIUM 36685499905 Active Mitch Urbina DO Active INVOKANA 100 MG ORAL TABLET 1 tablet orally daily CANAGLIFLOZIN 69728632416 Active Curly Coker MD Active MINOXIDIL 2.5 MG ORAL TABLET 1 tablet daily for high blood press ure MINOXIDIL 98525690656 Active Renee Oconnor LPN Active MECLIZINE HCL 25 MG ORAL TABLET 1 po tid 3 days, then 1/2 ta b tid 3 days MECLIZINE HCL 24156208278 No Longer Active Corey SEGURA Active ALLOPURINOL 300 MG ORAL TABLET Take 1 tablet by mouth daily 2012 ALLOPURINOL 93222261680 No Longer Active Corey SEGURA Active CLONIDINE HCL 0.1 MG ORAL TABLET 1 po bid 7 days, then 1/2 t ab po bid 7 days CLONIDINE HCL 11703193855 No Longer Active Corey SEGURA Active COUMADIN 5 MG ORAL TABLET 1 tab PO daily WARFAR IN SODIUM 12159429107 Active Curly Coker MD Active COUMADIN 4 MG ORAL TABLET 1 tablet daily WARFAR IN SODIUM 15701362682 No Longer Active Corey SEGURA Active POLYTRIM 02550-2.1 UNIT/ML-% OPHTHALMIC SOLUTION 1 rui p in affected eye every 3 hours while awake x 7 days POLYMYXIN B-TRIMETHOP RIM 51986161295 No Longer Active Corey SEGURA Active LOSARTAN POTASSIUM-HCTZ 100-12.5 MG ORAL TABLET 1 by m outh daily for high blood pressure LOSARTAN POTASSIUM-HCTZ 56966128133 No Longer A ctive Mitch Urbina DO Active LISINOPRIL-HYDROCHLOROTHIAZIDE 20-12.5 MG ORAL TABLET 1 tab by m outh daily LISINOPRIL-HYDROCHLOROTHIAZIDE 18114742414 No Longer Active Mitch Urbina DO Active LISINOPRIL 20 MG ORAL TABLET 1 tab po at HS LIS INOPRIL 68543075118 No Longer Active Mitch Urbina DO Active COUMADIN 5 MG ORAL TABLET 1 by mouth every other day 2 WARFARIN SODIUM 62826052857 No Longer Active Mitch Urbina DO Active COUMADIN 6 MG ORAL TABLET 1 by mouth every other day 2 WARFARIN SODIUM 06753858976 No Longer Active Mitch Urbina DO Active SIMVASTATIN 40 MG ORAL TABLET 1 tab daily at bedtime SIMVASTATIN 87870069222 Active Renee Oconnor LPN Active SIMVASTATIN 20 MG ORAL TABLET 1 tab daily at bedtime 2 SIMVASTATIN 99520297380 No Longer Active Mitch Urbina DO Active LOVENOX 100 MG/ML SUBCUTANEOUS SOLUTION One injection twice a da y ENOXAPARIN SODIUM 22374117065 No Longer Active Carmine Yusuf MD Active JANUVIA 50 MG ORAL TABLET Take one by mouth daily SITAGLIPTIN PHOSPHATE 88682356620 Active Mitch Urbina DO Active JANUVIA 100 MG ORAL TABLET 1/2 by mouth every day 2011 SITAGLIPTIN PHOSPHATE 99993142594 No Longer Active Bijal Segal RN Acti ve METFORMIN HCL 500 MG ORAL TABLET 2 by mouth twice daily METFORMIN HCL 46311229722 Active Renee Oconnor COMMERCIAL LOAN COORDINATOR Active COLCRYS 0.6 MG ORAL TABLET 1 po q 6 hours prn gout pain COLCHICINE 93457005533 No Longer Active Camila Reese Active LISINOPRIL 5 MG ORAL TABLET 1 by mouth every day 11/17 LISINOPRIL 53209996915 No Longer Active Nguyen Perez Active KLOR-CON 20 MEQ ORAL PACKET Take one by mouth daily 20 09/10/08 POTASSIUM CHLORIDE 11395694839 No Longer Active Nguyen Perez Active FUROSEMIDE 40 MG ORAL TABLET 1 by mouth daily F UROSEMIDE 88031852191 No Longer Active Nguyen Perez Active PROVIGIL 100 MG ORAL TABLET Take one by mouth daily 08/20/04 MODAFINIL 24438001231 No Longer Active Mitch Urbina DO Active BACTRIM DS 800-160 MG ORAL TABLET 1 tab by mouth twice daily 201 10/19/09 TRIMETHOPRIM-SULFAMETHOXAZOLE 51062831744 No Longer Active Elian Hays MD Active ADULT ASPIRIN LOW STRENGTH 81 MG ORAL TABLET DISINTEGR ATING 1 by mouth every daily ASPIRIN 95819507785 Active Mitch Urbina DO Ac tive METOPROLOL TARTRATE 50 MG ORAL TABLET 1 by mouth twice daily METOPROLOL TARTRATE 22062265755 Active Mitch Urbina DO Active BACTRIM DS 800-160 MG ORAL TABLET 1 tab by mouth twice daily 201 10/19/09 BACTRIM DS 800-160 MG ORAL TABLET 047134 TRIMETHOPRIM-SULFAMETHOXAZOLE Inactive PROVIGIL 100 MG ORAL TABLET Take one by mouth daily 08/20/04 PROVIGIL 100 MG ORAL TABLET 466156 MODAFINIL Inactive FUROSEMIDE 40 MG ORAL TABLET 1 by mouth daily FUROSEMIDE 40 MG ORAL TABLET 374878 FUROSEMIDE Inactive KLOR-CON 20 MEQ ORAL PACKET Take one by mouth daily 09/10/08 KLOR- CON 20 MEQ ORAL PACKET 2890615 POTASSIUM CHLORIDE Inactive LISINOPRIL 5 MG ORAL TABLET 1 by mouth every day 11/17 LISINOPRIL 5 MG ORAL TABLET 297394 LISINOPRIL Inactive COLCRYS 0.6 MG ORAL TABLET 1 po q 6 hours prn gout pain COLCRYS 0.6 MG ORAL TABLET 280332 COLCHICINE Inactive JANUVIA 100 MG ORAL TABLET 1/2 by mouth every day 2011 JANUVIA 100 MG ORAL TABLET SITAGLIPTIN PHOSPHATE Inactive SIMVASTATIN 20 MG ORAL TABLET 1 tab daily at bedtime 2 SIMVASTATIN 20 MG ORAL TABLET 217889 SIMVASTATIN Inactive COUMADIN 6 MG ORAL TABLET 1 by mouth every other day COUMADIN 6 MG ORAL TABLET 284064 WARFARIN SODIUM Inactive COUMADIN 5 MG ORAL TABLET 1 by mouth every other day COUMADIN 5 MG ORAL TABLET 844936 WARFARIN SODIUM Inactive LISINOPRIL 20 MG ORAL TABLET 1 tab po at HS LISINOPRIL 20 MG ORAL TABLET 774414 LISINOPRIL Inactive LISINOPRIL-HYDROCHLOROTHIAZIDE 20-12.5 MG ORAL TABLET 1 tab by m outh daily LISINOPRIL-HYDROCHLOROTHIAZIDE 20-12.5 MG ORAL TABLET 337257 LISINOPRIL-HYDROCHLOROTHIAZIDE Inactive POLYTRIM 66815-0.1 UNIT/ML-% OPHTHALMIC SOLUTION 1 rui p in affected eye every 3 hours while awake x 7 days POLYTRIM 1000 0-0.1 UNIT/ML-% OPHTHALMIC SOLUTION 695081 POLYMYXIN B-TRIMETHOPRIM Inactive COUMADIN 4 MG ORAL TABLET 1 tablet daily COUMADIN 4 MG ORAL TABLET 709329 WARFARIN SODIUM Inactive CLONIDINE HCL 0.1 MG ORAL TABLET 1 po bid 7 days, then 1/2 t ab po bid 7 days CLONIDINE HCL 0.1 MG ORAL TABLET 012305 CLONIDIN E HCL Inactive ALLOPURINOL 300 MG ORAL TABLET Take 1 tablet by mouth daily 2012 ALLOPURINOL 300 MG ORAL TABLET 934991 ALLOPURINOL I nactive MECLIZINE HCL 25 MG ORAL TABLET 1 po tid 3 days, then 1/2 ta b tid 3 days MECLIZINE HCL 25 MG ORAL TABLET 183217 MECLIZINE HCL Inactive AMLODIPINE BESYLATE 5 MG ORAL TABLET 1 tablet by mouth daily 201 01/20/04 AMLODIPINE BESYLATE 5 MG ORAL TABLET 389703 AMLODIPINE BESYLATE Inactive KEFLEX 500 MG ORAL CAPSULE 1 po qid K EFLEX 500 MG ORAL CAPSULE 363172 CEPHALEXIN Inactive COLCRYS 0.6 MG ORAL TABLET 1 tab qid prn gout COLCRYS 0.6 MG ORAL TABLET 594299 COLCHICINE Inactive FAMOTIDINE 20 MG ORAL TABLET by mouth twice a day 2017 FAMOTIDINE 20 MG ORAL TABLET 209926 FAMOTIDINE Inactive LOVENOX 100 MG/ML SUBCUTANEOUS SOLUTION One injection twice a da y LOVENOX 100 MG/ML SUBCUTANEOUS SOLUTION 433451 ENOXAPAR IN SODIUM Inactive Vital Signs Date [...] HGBA1C - Chemistry cholesterol, serum 136 mg/dL 145-714 8591/12/06 triglyceride, serum, fasting 247 mg/dL 30-200 HDL cholesterol, serum 41 mg/dL 32-60 LDL cholesterol, serum 46 mg/dL 0-130 aspartate aminotransferase (SGOT), serum 22 U/L 15-37 alanine aminotransferase (SGPT), serum 30 U/L 12-78 bilirubin, serum, total 0.80 mg/dL 0.00-1.00 hemoglobin A1C, blood, as % of total hemoglobin 6.4 % 4.3-6.0 Encounters Code Encounter Date Provider Facility CPT-43057 Level 3 Est. Patient 18:25:53 CDT Mitch luis [facility] CPT-94685 Level 3 Est. Patient 19:43:34 CDT Mitch luis [facility] CPT-35001 Level 4 Est. Patient 09:30:18 CDT Mitch W L janelle [facility] CPT-15754 Level 3 Est. Patient 15:10:14 CDT Joe kamara [facility]-19401 Level 3 Est. Patient 15:03:46 CDT Joe kamara [facility]-29000 Level 3 Est. Patient 14:21:06 CDT Mitch Ambrose L janelle [facility]-16195 Level 3 Est. Patient 14:52:06 CDT Devonsonya Jason kamara [facility] CPT-05323 Level 3 Est. Patient 09:34:30 CUTTING MACHINE OFFBEARER Mitch luis [facility]-17841 Level 3 Est. Patient 09:37:15 CDT Mitch Ambrose L janelle [facility]-28323 Level 3 Est. Patient 17:01:00 CUTTING MACHINE OFFBEARER Mitch luis [facility] CPT-74802 Level 3 Est. Patient 13:53:19 CUTTING MACHINE OFFBEARER Mitch Ambrose L janelle [facility] CPT-52883 Level 3 Est. Patient 19:19:37 CUTTING MACHINE OFFBEARER Mitch W L janelle [facility] CPT-86862 Level 3 Est. Patient 13:25:53 CUTTING MACHINE OFFBEARER Tavo toure MD [facility]-14251 Level 3 Est. Patient 18:17:28 CDT Mitch W Nona luis [facility] CPT-44085 Level 3 Est. Patient 15:22:57 CDT Mitch Ambrose L janelle [facility] CPT-33909 Level 3 Est. Patient 18:21:50 CDT Mitch W L ee [facility] CPT-24448 Level 3 Est. Patient 18:20:38 CDT Mitch W L ee [facility] CPT-14784 Level 3 Est. Patient 15:37:55 CDT Mitch luis [facility] CPT-54563 Level 2 Est. Patient 15:54:44 CDT Carmine benton MD [facility] CPT-24069 Level 3 Est. Patient 21:46:01 CUTTING MACHINE OFFBEARER Mitch luis [facility] CPT-76609 Level 3 Est. Patient 22:15:50 CDT Mitch luis [facility] CPT-56562 Level 3 Est. Patient 10:48:15 CDT Mitch luis [facility] CPT-08295 Level 3 Est. Patient 23:20:57 CDT Tavo toure MD [facility] CPT-16178 Level 3 Est. Patient 16:26:13 CDT Mitch luis [facility] Procedures Code Procedure Name Date Entry Date Standard Desc ription CPT-JTINJ Asp/Joint Injection 18:47:02 CDT CPT-25255 Venipuncture Draw Fee 09:26:17 CDT CPT-16426 PT/INR - LAB USE ONLY 13:32:49 CUTTING MACHINE OFFBEARER CPT-50693 Venipuncture Draw Fee 13:32:49 CUTTING MACHINE OFFBEARER CPT-39453 PT/INR - LAB USE ONLY 10:34:49 CUTTING MACHINE OFFBEARER CPT-85557 Venipuncture Draw Fee 10:34:48 CUTTING MACHINE OFFBEARER CPT-78819 PT/INR - LAB USE ONLY 09:22:03 CUTTING MACHINE OFFBEARER CPT-84510 Venipuncture Draw Fee 09:22:02 CUTTING MACHINE OFFBEARER CPT-62058 Hemoccult IFOBT - LAB USE ONLY 10:27:22 CDT CPT-11211 Venipuncture Draw Fee 08:27:08 CDT CPT-78951 Liver Profile - LAB USE ONLY 08:27:07 CDT 2 CPT-39643 Microalbumin - LAB USE ONLY 08:27:07 CDT 20 25/05/09 CPT-76312 PT/INR - LAB USE ONLY 08:27:07 CDT CPT-00768 HGBA1C - LAB USE ONLY 08:27:07 CDT CPT-65537 CBC - LAB USE ONLY 08:27:07 CDT CPT-97482 Venipuncture Draw Fee 11:09:14 CDT CPT-66190 Venipuncture Draw Fee 08:32:21 CUTTING MACHINE OFFBEARER CPT-04222 Venipuncture Draw Fee 09:38:56 CUTTING MACHINE OFFBEARER CPT-93275 No Charge Offi Visit 21:36:07 CDT 1 CPT-49840 Venipuncture Draw Fee 10:13:28 CUTTING MACHINE OFFBEARER CPT-68531 Venipuncture Draw Fee 08:31:11 CDT CPT-15481 Aspir/Inject Med Joint 18:17:28 CDT CPT-10597 Venipuncture Draw Fee 10:13:30 CDT CPT-65121 Venipuncture Draw Fee 08:31:43 CUTTING MACHINE OFFBEARER CPT-JTINJ Joint Injection 18:34:50 CDT CPT-81338 Knee 3V 12:25:09 CDT CPT-34761 Venipuncture Draw Fee 12:15:57 CDT CPT-060 Medical Surveillance Exam 21:31:43 CDT 2011 CPT-38535 Venipuncture Draw Fee 08:32:05 CUTTING MACHINE OFFBEARER 2011/11/ 23 CPT-OV Office Visit 18:19:06 CDT
--- OUTSIDE RECORDS SUMMARY | 2020-01-18 13:36 | XMS REPORT | Clinical Summary ---
Author Author Admin, Mitch Leon Organization [facility] Address Unknown Phone Unavailable Allergies, Adverse Reactions, [...] 1/2 tab po q day ERICKA BARBA [id number] Active Renee Oconnor LPN Active FAMOTIDINE 20 MG ORAL TABLET by mouth twice a day 2017 FAMOTIDINE 63386907718 No Longer Active Mitch Urbina DO Active COLCRYS 0.6 MG ORAL TABLET 1 tab qid prn gout C OLCHICINE 90227973024 No Longer Active Mitch Urbina DO Active GLIMEPIRIDE 2 MG ORAL TABLET 1 po BID GLIMEPIRID E 37996198349 Active Renee Oconnor LPN Active KEFLEX 500 MG ORAL CAPSULE 1 po qid CEPHALEXI N 40241951799 No Longer Active Mitch Urbina DO Active LOSARTAN POTASSIUM 100 MG ORAL TABLET 1 pill by mouth daily, for blood pressure LOSARTAN POTASSIUM 66788220873 Active Renee Oconnor LPN Active AMLODIPINE BESYLATE 5 MG ORAL TABLET 1 tablet by mouth daily 201 01/20/04 AMLODIPINE BESYLATE 25138556567 No Longer Active Joe fulton APRN Active MITIGARE 0.6 MG ORAL CAPSULE 2 capsules at onset of go ut pain, then take one capsule at 1 hour if symptoms persist. COLCHICINE 59 424388957 Active Mitch Urbina DO Active COUMADIN 1 MG ORAL TABLET 2 tabs orally daily with the 5mg tab to equal 7mg daily WARFARIN SODIUM 25323294831 Active Mitch Urbina DO Active INVOKANA 100 MG ORAL TABLET 1 tablet orally daily CANAGLIFLOZIN 46777484234 Active Curly Coker MD Active MINOXIDIL 2.5 MG ORAL TABLET 1 tablet daily for high blood press ure MINOXIDIL 98245415508 Active Renee Oconnor LPN Active MECLIZINE HCL 25 MG ORAL TABLET 1 po tid 3 days, then 1/2 ta b tid 3 days MECLIZINE HCL 17049716627 No Longer Active Corey SEGURA Active ALLOPURINOL 300 MG ORAL TABLET Take 1 tablet by mouth daily 2012 ALLOPURINOL 06934899460 No Longer Active Corey SEGURA Active CLONIDINE HCL 0.1 MG ORAL TABLET 1 po bid 7 days, then 1/2 t ab po bid 7 days CLONIDINE HCL 54876348251 No Longer Active Corey SEGURA Active COUMADIN 5 MG ORAL TABLET 1 tab PO daily WARFAR IN SODIUM 80467470187 Active Curly Coker MD Active COUMADIN 4 MG ORAL TABLET 1 tablet daily WARFAR IN SODIUM 15491323348 No Longer Active Corey SEGURA Active POLYTRIM 07701-1.1 UNIT/ML-% OPHTHALMIC SOLUTION 1 rui p in affected eye every 3 hours while awake x 7 days POLYMYXIN B-TRIMETHOP RIM 99327684183 No Longer Active Corey SEGURA Active LOSARTAN POTASSIUM-HCTZ 100-12.5 MG ORAL TABLET 1 by m outh daily for high blood pressure LOSARTAN POTASSIUM-HCTZ 29188821290 No Longer A ctive Mitch Urbina DO Active LISINOPRIL-HYDROCHLOROTHIAZIDE 20-12.5 MG ORAL TABLET 1 tab by m outh daily LISINOPRIL-HYDROCHLOROTHIAZIDE 16371844289 No Longer Active Mitch Urbina DO Active LISINOPRIL 20 MG ORAL TABLET 1 tab po at HS LIS INOPRIL 74168295619 No Longer Active Mitch Urbina DO Active COUMADIN 5 MG ORAL TABLET 1 by mouth every other day 2 WARFARIN SODIUM 96723187643 No Longer Active Mitch Urbina DO Active COUMADIN 6 MG ORAL TABLET 1 by mouth every other day 2 WARFARIN SODIUM 09841818691 No Longer Active Mitch Urbina DO Active SIMVASTATIN 40 MG ORAL TABLET 1 tab daily at bedtime SIMVASTATIN 69481620209 Active Renee Oconnor LPN Active SIMVASTATIN 20 MG ORAL TABLET 1 tab daily at bedtime 2 SIMVASTATIN 40068412883 No Longer Active Mitch Urbina DO Active LOVENOX 100 MG/ML SUBCUTANEOUS SOLUTION One injection twice a da y ENOXAPARIN SODIUM 35930221294 No Longer Active Carmine Yusuf MD Active JANUVIA 50 MG ORAL TABLET Take one by mouth daily SITAGLIPTIN PHOSPHATE 37458700162 Active Mitch Urbina DO Active JANUVIA 100 MG ORAL TABLET 1/2 by mouth every day 2011 SITAGLIPTIN PHOSPHATE 12738687469 No Longer Active Bijal Segal RN Acti ve METFORMIN HCL 500 MG ORAL TABLET 2 by mouth twice daily METFORMIN HCL 49954012704 Active Renee Oconnor [employer]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 GENETIC COUNSELOR Active COLCRYS 0.6 MG ORAL TABLET 1 po q 6 hours prn gout pain COLCHICINE 36069276558 No Longer Active Camila Reese Active LISINOPRIL 5 MG ORAL TABLET 1 by mouth every day 11/17 LISINOPRIL 35938078262 No Longer Active Nguyen Perez Active KLOR-CON 20 MEQ ORAL PACKET Take one by mouth daily 20 09/10/08 POTASSIUM CHLORIDE 13737581577 No Longer Active Nguyen Perez Active FUROSEMIDE 40 MG ORAL TABLET 1 by mouth daily F UROSEMIDE 36546387425 No Longer Active Nguyen Perez Active PROVIGIL 100 MG ORAL TABLET Take one by mouth daily 08/20/04 MODAFINIL 53346365190 No Longer Active Mitch Urbina DO Active BACTRIM DS 800-160 MG ORAL TABLET 1 tab by mouth twice daily 201 10/19/09 TRIMETHOPRIM-SULFAMETHOXAZOLE 65348941484 No Longer Active Elian Hays MD Active ADULT ASPIRIN LOW STRENGTH 81 MG ORAL TABLET DISINTEGR ATING 1 by mouth every daily ASPIRIN 08365410429 Active Mitch Urbina DO Ac tive METOPROLOL TARTRATE 50 MG ORAL TABLET 1 by mouth twice daily METOPROLOL TARTRATE 98318005188 Active Mitch Urbina DO Active BACTRIM DS 800-160 MG ORAL TABLET 1 tab by mouth twice daily 201 10/19/09 BACTRIM DS 800-160 MG ORAL TABLET 157298 TRIMETHOPRIM-SULFAMETHOXAZOLE Inactive PROVIGIL 100 MG ORAL TABLET Take one by mouth daily 08/20/04 PROVIGIL 100 MG ORAL TABLET 453708 MODAFINIL Inactive FUROSEMIDE 40 MG ORAL TABLET 1 by mouth daily FUROSEMIDE 40 MG ORAL TABLET 163596 FUROSEMIDE Inactive KLOR-CON 20 MEQ ORAL PACKET Take one by mouth daily 09/10/08 KLOR- CON 20 MEQ ORAL PACKET 7236600 POTASSIUM CHLORIDE Inactive LISINOPRIL 5 MG ORAL TABLET 1 by mouth every day 11/17 LISINOPRIL 5 MG ORAL TABLET 802730 LISINOPRIL Inactive COLCRYS 0.6 MG ORAL TABLET 1 po q 6 hours prn gout pain COLCRYS 0.6 MG ORAL TABLET 732686 COLCHICINE Inactive JANUVIA 100 MG ORAL TABLET 1/2 by mouth every day 2011 JANUVIA 100 MG ORAL TABLET SITAGLIPTIN PHOSPHATE Inactive SIMVASTATIN 20 MG ORAL TABLET 1 tab daily at bedtime 2 SIMVASTATIN 20 MG ORAL TABLET 297522 SIMVASTATIN Inactive COUMADIN 6 MG ORAL TABLET 1 by mouth every other day COUMADIN 6 MG ORAL TABLET 321187 WARFARIN SODIUM Inactive COUMADIN 5 MG ORAL TABLET 1 by mouth every other day COUMADIN 5 MG ORAL TABLET 591293 WARFARIN SODIUM Inactive LISINOPRIL 20 MG ORAL TABLET 1 tab po at HS LISINOPRIL 20 MG ORAL TABLET 880555 LISINOPRIL Inactive LISINOPRIL-HYDROCHLOROTHIAZIDE 20-12.5 MG ORAL TABLET 1 tab by m outh daily LISINOPRIL-HYDROCHLOROTHIAZIDE 20-12.5 MG ORAL TABLET 270601 LISINOPRIL-HYDROCHLOROTHIAZIDE Inactive POLYTRIM 44261-5.1 UNIT/ML-% OPHTHALMIC SOLUTION 1 rui p in affected eye every 3 hours while awake x 7 days POLYTRIM 1000 0-0.1 UNIT/ML-% OPHTHALMIC SOLUTION 360556 POLYMYXIN B-TRIMETHOPRIM Inactive COUMADIN 4 MG ORAL TABLET 1 tablet daily COUMADIN 4 MG ORAL TABLET 572619 WARFARIN SODIUM Inactive CLONIDINE HCL 0.1 MG ORAL TABLET 1 po bid 7 days, then 1/2 t ab po bid 7 days CLONIDINE HCL 0.1 MG ORAL TABLET 885467 CLONIDIN E HCL Inactive ALLOPURINOL 300 MG ORAL TABLET Take 1 tablet by mouth daily 2012 ALLOPURINOL 300 MG ORAL TABLET 998948 ALLOPURINOL I nactive MECLIZINE HCL 25 MG ORAL TABLET 1 po tid 3 days, then 1/2 ta b tid 3 days MECLIZINE HCL 25 MG ORAL TABLET 962506 MECLIZINE HCL Inactive AMLODIPINE BESYLATE 5 MG ORAL TABLET 1 tablet by mouth daily 201 01/20/04 AMLODIPINE BESYLATE 5 MG ORAL TABLET 756251 AMLODIPINE BESYLATE Inactive KEFLEX 500 MG ORAL CAPSULE 1 po qid K EFLEX 500 MG ORAL CAPSULE 236361 CEPHALEXIN Inactive COLCRYS 0.6 MG ORAL TABLET 1 tab qid prn gout COLCRYS 0.6 MG ORAL TABLET 105285 COLCHICINE Inactive FAMOTIDINE 20 MG ORAL TABLET by mouth twice a day 2017 FAMOTIDINE 20 MG ORAL TABLET 796295 FAMOTIDINE Inactive LOVENOX 100 MG/ML SUBCUTANEOUS SOLUTION One injection twice a da y LOVENOX 100 MG/ML SUBCUTANEOUS SOLUTION 315599 ENOXAPAR IN SODIUM Inactive Vital Signs Date [...] HGBA1C - Chemistry cholesterol, serum 136 mg/dL 680-000 7434/12/06 triglyceride, serum, fasting 247 mg/dL 30-200 HDL cholesterol, serum 41 mg/dL 32-60 LDL cholesterol, serum 46 mg/dL 0-130 aspartate aminotransferase (SGOT), serum 22 U/L 15-37 alanine aminotransferase (SGPT), serum 30 U/L 12-78 bilirubin, serum, total 0.80 mg/dL 0.00-1.00 hemoglobin A1C, blood, as % of total hemoglobin 6.4 % 4.3-6.0 Encounters Code Encounter Date Provider Facility CPT-75287 Level 3 Est. Patient 18:25:53 CDT Mitch luis [facility] CPT-45224 Level 3 Est. Patient 19:43:34 CDT Mitch luis [facility] CPT-33519 Level 4 Est. Patient 09:30:18 CDT Mitch W L janelle [facility] CPT-79259 Level 3 Est. Patient 15:10:14 CDT Joe kamara [facility]-81666 Level 3 Est. Patient 15:03:46 CDT Joe kamara [facility]-48212 Level 3 Est. Patient 14:21:06 CDT Mitch Ambrose L janelle [facility]-02019 Level 3 Est. Patient 14:52:06 CDT Devonsonya Jason kamara [facility] CPT-24234 Level 3 Est. Patient 09:34:30 OFFICE ASSISTANT RECEPTIONIST Mitch luis [facility]-83721 Level 3 Est. Patient 09:37:15 CDT Mitch Ambrose L janelle [facility]-70524 Level 3 Est. Patient 17:01:00 OFFICE ASSISTANT RECEPTIONIST Mitch luis [facility] CPT-53070 Level 3 Est. Patient 13:53:19 OFFICE ASSISTANT RECEPTIONIST Mitch Ambrose L janelle [facility] CPT-14774 Level 3 Est. Patient 19:19:37 OFFICE ASSISTANT RECEPTIONIST Mitch W L janelle [facility] CPT-25290 Level 3 Est. Patient 13:25:53 OFFICE ASSISTANT RECEPTIONIST Tavo toure MD [facility]-00264 Level 3 Est. Patient 18:17:28 CDT Mitch W Nona luis [facility] CPT-86821 Level 3 Est. Patient 15:22:57 CDT Mitch Ambrose L janelle [facility] CPT-42695 Level 3 Est. Patient 18:21:50 CDT Mitch W L ee [facility] CPT-90989 Level 3 Est. Patient 18:20:38 CDT Mitch W L ee [facility] CPT-38487 Level 3 Est. Patient 15:37:55 CDT Mitch luis [facility] CPT-26159 Level 2 Est. Patient 15:54:44 CDT Carmine benton MD [facility] CPT-84319 Level 3 Est. Patient 21:46:01 OFFICE ASSISTANT RECEPTIONIST Mitch luis [facility] CPT-97995 Level 3 Est. Patient 22:15:50 CDT Mitch luis [facility] CPT-02051 Level 3 Est. Patient 10:48:15 CDT Mitch luis [facility] CPT-51161 Level 3 Est. Patient 23:20:57 CDT Tavo toure MD [facility] CPT-67063 Level 3 Est. Patient 16:26:13 CDT Mitch luis [facility] Procedures Code Procedure Name Date Entry Date Standard Desc ription CPT-JTINJ Asp/Joint Injection 18:47:02 CDT CPT-83434 Venipuncture Draw Fee 09:26:17 CDT CPT-69873 PT/INR - LAB USE ONLY 13:32:49 OFFICE ASSISTANT RECEPTIONIST CPT-37705 Venipuncture Draw Fee 13:32:49 OFFICE ASSISTANT RECEPTIONIST CPT-65528 PT/INR - LAB USE ONLY 10:34:49 OFFICE ASSISTANT RECEPTIONIST CPT-33787 Venipuncture Draw Fee 10:34:48 OFFICE ASSISTANT RECEPTIONIST CPT-65981 PT/INR - LAB USE ONLY 09:22:03 OFFICE ASSISTANT RECEPTIONIST CPT-18370 Venipuncture Draw Fee 09:22:02 OFFICE ASSISTANT RECEPTIONIST CPT-44420 Hemoccult IFOBT - LAB USE ONLY 10:27:22 CDT CPT-88136 Venipuncture Draw Fee 08:27:08 CDT CPT-99464 Liver Profile - LAB USE ONLY 08:27:07 CDT 2 CPT-45772 Microalbumin - LAB USE ONLY 08:27:07 CDT 20 25/05/09 CPT-15042 PT/INR - LAB USE ONLY 08:27:07 CDT CPT-14832 HGBA1C - LAB USE ONLY 08:27:07 CDT CPT-33211 CBC - LAB USE ONLY 08:27:07 CDT CPT-93036 Venipuncture Draw Fee 11:09:14 CDT CPT-63695 Venipuncture Draw Fee 08:32:21 OFFICE ASSISTANT RECEPTIONIST CPT-52941 Venipuncture Draw Fee 09:38:56 OFFICE ASSISTANT RECEPTIONIST CPT-64402 No Charge Offi Visit 21:36:07 CDT 1 CPT-25992 Venipuncture Draw Fee 10:13:28 OFFICE ASSISTANT RECEPTIONIST CPT-99372 Venipuncture Draw Fee 08:31:11 CDT CPT-94507 Aspir/Inject Med Joint 18:17:28 CDT CPT-88830 Venipuncture Draw Fee 10:13:30 CDT CPT-00445 Venipuncture Draw Fee 08:31:43 OFFICE ASSISTANT RECEPTIONIST CPT-JTINJ Joint Injection 18:34:50 CDT CPT-92966 Knee 3V 12:25:09 CDT CPT-50645 Venipuncture Draw Fee 12:15:57 CDT CPT-060 Medical Surveillance Exam 21:31:43 CDT 2011 CPT-44723 Venipuncture Draw Fee 08:32:05 OFFICE ASSISTANT RECEPTIONIST 2011/11/ 23 CPT-OV Office Visit 18:19:06 CDT
--- OUTSIDE RECORDS SUMMARY | 2020-01-18 13:37 | XMS REPORT | Clinical Summary ---
Author Author Admin, Mitch Leon Organization [facility] [employer] Address Unknown Phone Unavailable Allergies, Adverse Reactions, [...] USE OF ANTICOAGULANTS V58.61 Resol kylah Mitch Urbnia DO Long-term (current) use of anticoagulant s HEALTH MAINTENANCE EXAM V70.0 Active Mitch Meraz DO Routine general medical examination at a health care facility CORONARY HEART DISEASE 414.00 Active Mitch Urbina DO Coronary atherosclerosis of unspecified type of vessel, [place] or graft EDEMA 782.3 Resolved Mitch Urbina [...] OLECRANON BURSITIS, RIGHT 726.33 Resolved Br uce Aronl Urbina DO Olecranon bursitis UNSPECIFIED ANEMIA 285.9 [...] 1/2 tab po q day ERICKA BARBA 38079856583 Active Renee Oconnor LPN Active FAMOTIDINE 20 MG ORAL TABLET by mouth twice a day 2017 FAMOTIDINE 80959105191 No Longer Active Mitch Urbina DO Active COLCRYS 0.6 MG ORAL TABLET 1 tab qid prn gout C OLCHICINE 23284830842 No Longer Active Mitch Urbina DO Active GLIMEPIRIDE 2 MG ORAL TABLET 1 po BID GLIMEPIRID E 74228135476 Active Renee Oconnor LPN Active KEFLEX 500 MG ORAL CAPSULE 1 po qid CEPHALEXI N 31028412668 No Longer Active Mitch Urbina DO Active LOSARTAN POTASSIUM 100 MG ORAL TABLET 1 pill by mouth daily, for blood pressure LOSARTAN POTASSIUM 64121027603 Active Renee Oconnor LPN Active AMLODIPINE BESYLATE 5 MG ORAL TABLET 1 tablet by mouth daily 201 01/20/04 AMLODIPINE BESYLATE 29679024264 No Longer Active Joe fulton APRN Active MITIGARE 0.6 MG ORAL CAPSULE 2 capsules at onset of go ut pain, then take one capsule at 1 hour if symptoms persist. COLCHICINE 59 095740842 Active Mitch Urbina DO Active COUMADIN 1 MG ORAL TABLET 2 tabs orally daily with the 5mg tab to equal 7mg daily WARFARIN SODIUM 05255911180 Active Micth Urbina DO Active INVOKANA 100 MG ORAL TABLET 1 tablet orally daily CANAGLIFLOZIN 18254413129 Active Curly Coker MD Active MINOXIDIL 2.5 MG ORAL TABLET 1 tablet daily for high blood press ure MINOXIDIL 22866056065 Active Renee Oconnor LPN Active MECLIZINE HCL 25 MG ORAL TABLET 1 po tid 3 days, then 1/2 ta b tid 3 days MECLIZINE HCL 60113287474 No Longer Active Corey SEGURA Active ALLOPURINOL 300 MG ORAL TABLET Take 1 tablet by mouth daily 2012 ALLOPURINOL 95209084381 No Longer Active Corey SEGURA Active CLONIDINE HCL 0.1 MG ORAL TABLET 1 po bid 7 days, then 1/2 t ab po bid 7 days CLONIDINE HCL 86449843758 No Longer Active Corey SEGURA Active COUMADIN 5 MG ORAL TABLET 1 tab PO daily WARFAR IN SODIUM 60173349088 Active Curly Coker MD Active COUMADIN 4 MG ORAL TABLET 1 tablet daily WARFAR IN SODIUM 32158874453 No Longer Active Corey SEGURA Active POLYTRIM 13637-4.1 UNIT/ML-% OPHTHALMIC SOLUTION 1 rui p in affected eye every 3 hours while awake x 7 days POLYMYXIN B-TRIMETHOP RIM 58093903372 No Longer Active Corey SEGURA Active LOSARTAN POTASSIUM-HCTZ 100-12.5 MG ORAL TABLET 1 by m outh daily for high blood pressure LOSARTAN POTASSIUM-HCTZ 54237150052 No Longer A ctive Mitch Urbina DO Active LISINOPRIL-HYDROCHLOROTHIAZIDE 20-12.5 MG ORAL TABLET 1 tab by m outh daily LISINOPRIL-HYDROCHLOROTHIAZIDE 98899062521 No Longer Active Mitch Urbina DO Active LISINOPRIL 20 MG ORAL TABLET 1 tab po at HS LIS INOPRIL 76334787974 No Longer Active Mitch Urbina DO Active COUMADIN 5 MG ORAL TABLET 1 by mouth every other day 2 WARFARIN SODIUM 67730781652 No Longer Active Mitch Urbina DO Active COUMADIN 6 MG ORAL TABLET 1 by mouth every other day 2 WARFARIN SODIUM 67323359533 No Longer Active Mitch Urbina DO Active SIMVASTATIN 40 MG ORAL TABLET 1 tab daily at bedtime SIMVASTATIN 94128105536 Active Renee Oconnor LPN Active SIMVASTATIN 20 MG ORAL TABLET 1 tab daily at bedtime 2 SIMVASTATIN 91314148483 No Longer Active Mitch Urbina DO Active LOVENOX 100 MG/ML SUBCUTANEOUS SOLUTION One injection twice a da y ENOXAPARIN SODIUM 50299480136 No Longer Active Carmine Yusuf MD Active JANUVIA 50 MG ORAL TABLET Take one by mouth daily SITAGLIPTIN PHOSPHATE 62705334250 Active Mitch Urbina DO Active JANUVIA 100 MG ORAL TABLET 1/2 by mouth every day 2011 SITAGLIPTIN PHOSPHATE 67739000735 No Longer Active Bijal Segal RN Acti ve METFORMIN HCL 500 MG ORAL TABLET 2 by mouth twice daily METFORMIN HCL 74015566752 Active Renee Oconnor LEGAL WORD PROCESSOR Active COLCRYS 0.6 MG ORAL TABLET 1 po q 6 hours prn gout pain COLCHICINE 05751879943 No Longer Active Camila Reese Active LISINOPRIL 5 MG ORAL TABLET 1 by mouth every day 11/17 LISINOPRIL 55049617808 No Longer Active Nguyen Perez Active KLOR-CON 20 MEQ ORAL PACKET Take one by mouth daily 20 09/10/08 POTASSIUM CHLORIDE 08198860329 No Longer Active Nguyen Perez Active FUROSEMIDE 40 MG ORAL TABLET 1 by mouth daily F UROSEMIDE 33720333675 No Longer Active Nguyen Perez Active PROVIGIL 100 MG ORAL TABLET Take one by mouth daily 08/20/04 MODAFINIL 68823984229 No Longer Active Mitch Urbina DO Active BACTRIM DS 800-160 MG ORAL TABLET 1 tab by mouth twice daily 201 10/19/09 TRIMETHOPRIM-SULFAMETHOXAZOLE 51312271972 No Longer Active Elian Hays MD Active ADULT ASPIRIN LOW STRENGTH 81 MG ORAL TABLET DISINTEGR ATING 1 by mouth every daily ASPIRIN 29551058522 Active Mitch Urbina DO Ac tive METOPROLOL TARTRATE 50 MG ORAL TABLET 1 by mouth twice daily METOPROLOL TARTRATE 92628541281 Active Mitch Urbina DO Active BACTRIM DS 800-160 MG ORAL TABLET 1 tab by mouth twice daily 201 10/19/09 BACTRIM DS 800-160 MG ORAL TABLET 985349 TRIMETHOPRIM-SULFAMETHOXAZOLE Inactive PROVIGIL 100 MG ORAL TABLET Take one by mouth daily 08/20/04 PROVIGIL 100 MG ORAL TABLET 160441 MODAFINIL Inactive FUROSEMIDE 40 MG ORAL TABLET 1 by mouth daily FUROSEMIDE 40 MG ORAL TABLET 658362 FUROSEMIDE Inactive KLOR-CON 20 MEQ ORAL PACKET Take one by mouth daily 09/10/08 KLOR- CON 20 MEQ ORAL PACKET 2159746 POTASSIUM CHLORIDE Inactive LISINOPRIL 5 MG ORAL TABLET 1 by mouth every day 11/17 LISINOPRIL 5 MG ORAL TABLET 402041 LISINOPRIL Inactive COLCRYS 0.6 MG ORAL TABLET 1 po q 6 hours prn gout pain COLCRYS 0.6 MG ORAL TABLET 770898 COLCHICINE Inactive JANUVIA 100 MG ORAL TABLET 1/2 by mouth every day 2011 JANUVIA 100 MG ORAL TABLET SITAGLIPTIN PHOSPHATE Inactive SIMVASTATIN 20 MG ORAL TABLET 1 tab daily at bedtime 2 SIMVASTATIN 20 MG ORAL TABLET 452076 SIMVASTATIN Inactive COUMADIN 6 MG ORAL TABLET 1 by mouth every other day COUMADIN 6 MG ORAL TABLET 158911 WARFARIN SODIUM Inactive COUMADIN 5 MG ORAL TABLET 1 by mouth every other day COUMADIN 5 MG ORAL TABLET 985592 WARFARIN SODIUM Inactive LISINOPRIL 20 MG ORAL TABLET 1 tab po at HS LISINOPRIL 20 MG ORAL TABLET 432555 LISINOPRIL Inactive LISINOPRIL-HYDROCHLOROTHIAZIDE 20-12.5 MG ORAL TABLET 1 tab by m outh daily LISINOPRIL-HYDROCHLOROTHIAZIDE 20-12.5 MG ORAL TABLET 660749 LISINOPRIL-HYDROCHLOROTHIAZIDE Inactive POLYTRIM 28044-4.1 UNIT/ML-% OPHTHALMIC SOLUTION 1 rui p in affected eye every 3 hours while awake x 7 days POLYTRIM 1000 0-0.1 UNIT/ML-% OPHTHALMIC SOLUTION 753743 POLYMYXIN B-TRIMETHOPRIM Inactive COUMADIN 4 MG ORAL TABLET 1 tablet daily COUMADIN 4 MG ORAL TABLET 665692 WARFARIN SODIUM Inactive CLONIDINE HCL 0.1 MG ORAL TABLET 1 po bid 7 days, then 1/2 t ab po bid 7 days CLONIDINE HCL 0.1 MG ORAL TABLET 113708 CLONIDIN E HCL Inactive ALLOPURINOL 300 MG ORAL TABLET Take 1 tablet by mouth daily 2012 ALLOPURINOL 300 MG ORAL TABLET 381203 ALLOPURINOL I nactive MECLIZINE HCL 25 MG ORAL TABLET 1 po tid 3 days, then 1/2 ta b tid 3 days MECLIZINE HCL 25 MG ORAL TABLET 078777 MECLIZINE HCL Inactive AMLODIPINE BESYLATE 5 MG ORAL TABLET 1 tablet by mouth daily 201 01/20/04 AMLODIPINE BESYLATE 5 MG ORAL TABLET 616518 AMLODIPINE BESYLATE Inactive KEFLEX 500 MG ORAL CAPSULE 1 po qid K EFLEX 500 MG ORAL CAPSULE 723727 CEPHALEXIN Inactive COLCRYS 0.6 MG ORAL TABLET 1 tab qid prn gout COLCRYS 0.6 MG ORAL TABLET 574509 COLCHICINE Inactive FAMOTIDINE 20 MG ORAL TABLET by mouth twice a day 2017 FAMOTIDINE 20 MG ORAL TABLET 756427 FAMOTIDINE Inactive LOVENOX 100 MG/ML SUBCUTANEOUS SOLUTION One injection twice a da y LOVENOX 100 MG/ML SUBCUTANEOUS SOLUTION 251093 ENOXAPAR IN SODIUM Inactive Vital Signs Date [...] HGBA1C - Chemistry cholesterol, serum 136 mg/dL 621-607 0517/12/06 triglyceride, serum, fasting 247 mg/dL 30-200 HDL cholesterol, serum 41 mg/dL 32-60 LDL cholesterol, serum 46 mg/dL 0-130 aspartate aminotransferase (SGOT), serum 22 U/L 15-37 alanine aminotransferase (SGPT), serum 30 U/L 12-78 bilirubin, serum, total 0.80 mg/dL 0.00-1.00 hemoglobin A1C, blood, as % of total hemoglobin 6.4 % 4.3-6.0 Encounters Code Encounter Date Provider Facility CPT-91084 Level 3 Est. Patient 18:25:53 CDT Mitch luis [facility] CPT-12481 Level 3 Est. Patient 19:43:34 CDT Mitch luis [facility] CPT-17922 Level 4 Est. Patient 09:30:18 CDT Mitch W L janelle [facility] CPT-33833 Level 3 Est. Patient 15:10:14 CDT Joe kamara [facility] CPT-68358 Level 3 Est. Patient 15:03:46 CDT Joe kamara [facility]-04105 Level 3 Est. Patient 14:21:06 CDT Mitch Ambrose L janelle [facility]-07889 Level 3 Est. Patient 14:52:06 CDT Devonjustincarlitos kamara [facility]-07244 Level 3 Est. Patient 09:34:30 DEFECT CUTTER Mitch Ambrose L janelle [facility]-95842 Level 3 Est. Patient 09:37:15 CDT Mitch Ambrose L janelle [facility]-11392 Level 3 Est. Patient 17:01:00 DEFECT CUTTER Mitch Ambrose L janelle [facility] CPT-02982 Level 3 Est. Patient 13:53:19 DEFECT CUTTER Mitch Ambrose L janelle [facility] CPT-95891 Level 3 Est. Patient 19:19:37 DEFECT CUTTER Mitch W L janelle [facility] CPT-33630 Level 3 Est. Patient 13:25:53 DEFECT CUTTER Tavo toure MD [facility]-29010 Level 3 Est. Patient 18:17:28 CDT Mitch W L janelle [facility] CPT-69448 Level 3 Est. Patient 15:22:57 CDT Mitch W L janelle [facility] CPT-46785 Level 3 Est. Patient 18:21:50 CDT Mitch W L ee [facility] CPT-11018 Level 3 Est. Patient 18:20:38 CDT Mitch W L ee [facility] CPT-69439 Level 3 Est. Patient 15:37:55 CDT Mitch Arnol Nona janelle [facility] CPT-55479 Level 2 Est. Patient 15:54:44 CDT Carmine benton MD [facility] CPT-79666 Level 3 Est. Patient 21:46:01 DEFECT CUTTER Mitch luis [facility] CPT-89377 Level 3 Est. Patient 22:15:50 CDT Mitch luis [facility] CPT-66243 Level 3 Est. Patient 10:48:15 CDT Mitch luis [facility] CPT-54215 Level 3 Est. Patient 23:20:57 CDT Tavo toure MD [facility] CPT-66758 Level 3 Est. Patient 16:26:13 CDT Mitch luis [facility] Procedures Code Procedure Name Date Entry Date Standard Desc ription CPT-JTINJ Asp/Joint Injection 18:47:02 CDT CPT-50507 Venipuncture Draw Fee 09:26:17 CDT CPT-80013 PT/INR - LAB USE ONLY 13:32:49 DEFECT CUTTER CPT-14032 Venipuncture Draw Fee 13:32:49 DEFECT CUTTER CPT-86782 PT/INR - LAB USE ONLY 10:34:49 DEFECT CUTTER CPT-33639 Venipuncture Draw Fee 10:34:48 DEFECT CUTTER CPT-14814 PT/INR - LAB USE ONLY 09:22:03 DEFECT CUTTER CPT-58508 Venipuncture Draw Fee 09:22:02 DEFECT CUTTER CPT-10719 Hemoccult IFOBT - LAB USE ONLY 10:27:22 CDT CPT-80835 Venipuncture Draw Fee 08:27:08 CDT CPT-92389 Liver Profile - LAB USE ONLY 08:27:07 CDT 2 CPT-59611 Microalbumin - LAB USE ONLY 08:27:07 CDT 20 25/05/09 CPT-09796 PT/INR - LAB USE ONLY 08:27:07 CDT CPT-86470 HGBA1C - LAB USE ONLY 08:27:07 CDT CPT-05784 CBC - LAB USE ONLY 08:27:07 CDT CPT-50748 Venipuncture Draw Fee 11:09:14 CDT CPT-24178 Venipuncture Draw Fee 08:32:21 DEFECT CUTTER CPT-35712 Venipuncture Draw Fee 09:38:56 DEFECT CUTTER CPT-37893 No Charge Offi Visit 21:36:07 CDT 1 CPT-16168 Venipuncture Draw Fee 10:13:28 DEFECT CUTTER CPT-38325 Venipuncture Draw Fee 08:31:11 CDT CPT-47977 Aspir/Inject Med Joint 18:17:28 CDT CPT-35252 Venipuncture Draw Fee 10:13:30 CDT CPT-18679 Venipuncture Draw Fee 08:31:43 DEFECT CUTTER CPT-JTINJ Joint Injection 18:34:50 CDT CPT-14966 Knee 3V 12:25:09 CDT CPT-82328 Venipuncture Draw Fee 12:15:57 CDT CPT-060 Medical Surveillance Exam 21:31:43 CDT 2011 CPT-30618 Venipuncture Draw Fee 08:32:05 DEFECT CUTTER CPT-OV Office Visit 18:19:06 CDT
--- OUTSIDE RECORDS SUMMARY | 2020-01-18 13:37 | XMS REPORT | Clinical Summary ---
Author Author Admin, Mitch Leon Organization [facility] [employer] Address Unknown Phone Unavailable Allergies, Adverse Reactions, [...] Coronary atherosclerosis of unspecified type of vessel, [place] or graft EDEMA 782.3 Resolved Mitch Urbina [...] 1/2 tab po q day ERICKA BARBA 61871540801 Active Renee Oconnor LPN Active FAMOTIDINE 20 MG ORAL TABLET by mouth twice a day 2017 FAMOTIDINE 60669301356 No Longer Active Mitch Urbina DO Active COLCRYS 0.6 MG ORAL TABLET 1 tab qid prn gout C OLCHICINE 76284101609 No Longer Active Mitch Urbina DO Active GLIMEPIRIDE 2 MG ORAL TABLET 1 po BID GLIMEPIRID E 49589856821 Active Renee Oconnor LPN Active KEFLEX 500 MG ORAL CAPSULE 1 po qid CEPHALEXI N 66781337352 No Longer Active Mitch Urbina DO Active LOSARTAN POTASSIUM 100 MG ORAL TABLET 1 pill by mouth daily, for blood pressure LOSARTAN POTASSIUM 87853481840 Active Renee Oconnor LPN Active AMLODIPINE BESYLATE 5 MG ORAL TABLET 1 tablet by mouth daily 201 01/20/04 AMLODIPINE BESYLATE 45302650553 No Longer Active Joe fulton APRN Active MITIGARE 0.6 MG ORAL CAPSULE 2 capsules at onset of go ut pain, then take one capsule at 1 hour if symptoms persist. COLCHICINE 59 082871175 Active Mitch Urbina DO Active COUMADIN 1 MG ORAL TABLET 2 tabs orally daily with the 5mg tab to equal 7mg daily WARFARIN SODIUM 31841997051 Active Mitch Urbina DO Active INVOKANA 100 MG ORAL TABLET 1 tablet orally daily CANAGLIFLOZIN 54696480372 Active Curly Coker MD Active MINOXIDIL 2.5 MG ORAL TABLET 1 tablet daily for high blood press ure MINOXIDIL 54359037583 Active Renee Oconnor LPN Active MECLIZINE HCL 25 MG ORAL TABLET 1 po tid 3 days, then 1/2 ta b tid 3 days MECLIZINE HCL 49135346923 No Longer Active Corey SEGURA Active ALLOPURINOL 300 MG ORAL TABLET Take 1 tablet by mouth daily 2012 ALLOPURINOL 31416921828 No Longer Active Corey SEGURA Active CLONIDINE HCL 0.1 MG ORAL TABLET 1 po bid 7 days, then 1/2 t ab po bid 7 days CLONIDINE HCL 61507591037 No Longer Active Corey SEGURA Active COUMADIN 5 MG ORAL TABLET 1 tab PO daily WARFAR IN SODIUM 84765382945 Active Curly Coker MD Active COUMADIN 4 MG ORAL TABLET 1 tablet daily WARFAR IN SODIUM 78856759594 No Longer Active Corey SEGURA Active POLYTRIM 00938-2.1 UNIT/ML-% OPHTHALMIC SOLUTION 1 rui p in affected eye every 3 hours while awake x 7 days POLYMYXIN B-TRIMETHOP RIM 60032805737 No Longer Active Corey SEGURA Active LOSARTAN POTASSIUM-HCTZ 100-12.5 MG ORAL TABLET 1 by m outh daily for high blood pressure LOSARTAN POTASSIUM-HCTZ 21978023426 No Longer A ctive Mitch Urbina DO Active LISINOPRIL-HYDROCHLOROTHIAZIDE 20-12.5 MG ORAL TABLET 1 tab by m outh daily LISINOPRIL-HYDROCHLOROTHIAZIDE 67988543651 No Longer Active Mitch Urbina DO Active LISINOPRIL 20 MG ORAL TABLET 1 tab po at HS LIS INOPRIL 32774972908 No Longer Active Mitch Urbina DO Active COUMADIN 5 MG ORAL TABLET 1 by mouth every other day 2 WARFARIN SODIUM 00499425114 No Longer Active Mitch Urbina DO Active COUMADIN 6 MG ORAL TABLET 1 by mouth every other day 2 WARFARIN SODIUM 93958686102 No Longer Active Mitch Urbina DO Active SIMVASTATIN 40 MG ORAL TABLET 1 tab daily at bedtime SIMVASTATIN 61182673123 Active Renee Oconnor LPN Active SIMVASTATIN 20 MG ORAL TABLET 1 tab daily at bedtime 2 SIMVASTATIN 98179011221 No Longer Active Mitch Urbina DO Active LOVENOX 100 MG/ML SUBCUTANEOUS SOLUTION One injection twice a da y ENOXAPARIN SODIUM 22853850454 No Longer Active Carmine Yusuf MD Active JANUVIA 50 MG ORAL TABLET Take one by mouth daily SITAGLIPTIN PHOSPHATE 07830242593 Active Mitch Urbina DO Active JANUVIA 100 MG ORAL TABLET 1/2 by mouth every day 2011 SITAGLIPTIN PHOSPHATE 46399000469 No Longer Active Bijal Segal RN Acti ve METFORMIN HCL 500 MG ORAL TABLET 2 by mouth twice daily METFORMIN HCL 84240843638 Active Renee Oconnor CHIEF TALENT OFFICER Active COLCRYS 0.6 MG ORAL TABLET 1 po q 6 hours prn gout pain COLCHICINE 30209615281 No Longer Active Camila Reese Active LISINOPRIL 5 MG ORAL TABLET 1 by mouth every day 11/17 LISINOPRIL 00436783909 No Longer Active Nguyen Perez Active KLOR-CON 20 MEQ ORAL PACKET Take one by mouth daily 20 09/10/08 POTASSIUM CHLORIDE 13413629567 No Longer Active Nguyen Perez Active FUROSEMIDE 40 MG ORAL TABLET 1 by mouth daily F UROSEMIDE 50122092324 No Longer Active Nguyen Perez Active PROVIGIL 100 MG ORAL TABLET Take one by mouth daily 08/20/04 MODAFINIL 85983582872 No Longer Active Mitch Urbina DO Active BACTRIM DS 800-160 MG ORAL TABLET 1 tab by mouth twice daily 201 10/19/09 TRIMETHOPRIM-SULFAMETHOXAZOLE 70308987190 No Longer Active Elian Hays MD Active ADULT ASPIRIN LOW STRENGTH 81 MG ORAL TABLET DISINTEGR ATING 1 by mouth every daily ASPIRIN 63582908482 Active Mitch Urbina DO Ac tive METOPROLOL TARTRATE 50 MG ORAL TABLET 1 by mouth twice daily METOPROLOL TARTRATE 11784970067 Active Mitch Urbina DO Active BACTRIM DS 800-160 MG ORAL TABLET 1 tab by mouth twice daily 201 10/19/09 BACTRIM DS 800-160 MG ORAL TABLET 029239 TRIMETHOPRIM-SULFAMETHOXAZOLE Inactive PROVIGIL 100 MG ORAL TABLET Take one by mouth daily 08/20/04 PROVIGIL 100 MG ORAL TABLET 660317 MODAFINIL Inactive FUROSEMIDE 40 MG ORAL TABLET 1 by mouth daily FUROSEMIDE 40 MG ORAL TABLET 863738 FUROSEMIDE Inactive KLOR-CON 20 MEQ ORAL PACKET Take one by mouth daily 09/10/08 KLOR- CON 20 MEQ ORAL PACKET 3887667 POTASSIUM CHLORIDE Inactive LISINOPRIL 5 MG ORAL TABLET 1 by mouth every day 11/17 LISINOPRIL 5 MG ORAL TABLET 846101 LISINOPRIL Inactive COLCRYS 0.6 MG ORAL TABLET 1 po q 6 hours prn gout pain COLCRYS 0.6 MG ORAL TABLET 927322 COLCHICINE Inactive JANUVIA 100 MG ORAL TABLET 1/2 by mouth every day 2011 JANUVIA 100 MG ORAL TABLET SITAGLIPTIN PHOSPHATE Inactive SIMVASTATIN 20 MG ORAL TABLET 1 tab daily at bedtime 2 SIMVASTATIN 20 MG ORAL TABLET 629250 SIMVASTATIN Inactive COUMADIN 6 MG ORAL TABLET 1 by mouth every other day COUMADIN 6 MG ORAL TABLET 395882 WARFARIN SODIUM Inactive COUMADIN 5 MG ORAL TABLET 1 by mouth every other day COUMADIN 5 MG ORAL TABLET 664580 WARFARIN SODIUM Inactive LISINOPRIL 20 MG ORAL TABLET 1 tab po at HS LISINOPRIL 20 MG ORAL TABLET 399627 LISINOPRIL Inactive LISINOPRIL-HYDROCHLOROTHIAZIDE 20-12.5 MG ORAL TABLET 1 tab by m outh daily LISINOPRIL-HYDROCHLOROTHIAZIDE 20-12.5 MG ORAL TABLET 197025 LISINOPRIL-HYDROCHLOROTHIAZIDE Inactive POLYTRIM 41981-2.1 UNIT/ML-% OPHTHALMIC SOLUTION 1 rui p in affected eye every 3 hours while awake x 7 days POLYTRIM 1000 0-0.1 UNIT/ML-% OPHTHALMIC SOLUTION 926618 POLYMYXIN B-TRIMETHOPRIM Inactive COUMADIN 4 MG ORAL TABLET 1 tablet daily COUMADIN 4 MG ORAL TABLET 325395 WARFARIN SODIUM Inactive CLONIDINE HCL 0.1 MG ORAL TABLET 1 po bid 7 days, then 1/2 t ab po bid 7 days CLONIDINE HCL 0.1 MG ORAL TABLET 757088 CLONIDIN E HCL Inactive ALLOPURINOL 300 MG ORAL TABLET Take 1 tablet by mouth daily 2012 ALLOPURINOL 300 MG ORAL TABLET 184899 ALLOPURINOL I nactive MECLIZINE HCL 25 MG ORAL TABLET 1 po tid 3 days, then 1/2 ta b tid 3 days MECLIZINE HCL 25 MG ORAL TABLET 369836 MECLIZINE HCL Inactive AMLODIPINE BESYLATE 5 MG ORAL TABLET 1 tablet by mouth daily 201 01/20/04 AMLODIPINE BESYLATE 5 MG ORAL TABLET 379027 AMLODIPINE BESYLATE Inactive KEFLEX 500 MG ORAL CAPSULE 1 po qid K EFLEX 500 MG ORAL CAPSULE 579611 CEPHALEXIN Inactive COLCRYS 0.6 MG ORAL TABLET 1 tab qid prn gout COLCRYS 0.6 MG ORAL TABLET 532674 COLCHICINE Inactive FAMOTIDINE 20 MG ORAL TABLET by mouth twice a day 2017 FAMOTIDINE 20 MG ORAL TABLET 422004 FAMOTIDINE Inactive LOVENOX 100 MG/ML SUBCUTANEOUS SOLUTION One injection twice a da y LOVENOX 100 MG/ML SUBCUTANEOUS SOLUTION 268177 ENOXAPAR IN SODIUM Inactive Vital Signs Date [...] % of total hemoglobin 7.4 % 4.3-6.0 Lab Report: Lipid Panel, HEPATIC PANEL, HGBA1C - Chemistry cholesterol, serum 136 mg/dL 500-209 1607/12/06 triglyceride, serum, fasting 247 mg/dL 30-200 HDL cholesterol, serum 41 mg/dL 32-60 LDL cholesterol, serum 46 mg/dL 0-130 aspartate aminotransferase (SGOT), serum 22 U/L 15-37 alanine aminotransferase (SGPT), serum 30 U/L 12-78 bilirubin, serum, total 0.80 mg/dL 0.00-1.00 hemoglobin A1C, blood, as % of total hemoglobin 6.4 % 4.3-6.0 Encounters Code Encounter Date Provider Facility CPT-04248 Level 3 Est. Patient 18:25:53 CDT Mitch luis DO [facility]-16670 Level 3 Est. Patient 19:43:34 CDT Mitch W Nona luis [facility] CPT-43016 Level 4 Est. Patient 09:30:18 CDT Mitch luis [facility] CPT-83272 Level 3 Est. Patient 15:10:14 CDT Devonjustincarlitos kamara [facility]-30645 Level 3 Est. Patient 15:03:46 CDT Devonsonya Jason [facility]-81412 Level 3 Est. Patient 14:21:06 CDT Mitch luis [facility] CPT-12038 Level 3 Est. Patient 14:52:06 CDT Joe Jason [facility]-00279 Level 3 Est. Patient 09:34:30 STUBBER Mitch luis [facility]-44163 Level 3 Est. Patient 09:37:15 CDT Mitch luis [facility] CPT-39721 Level 3 Est. Patient 17:01:00 STUBBER Mitch luis [facility] CPT-95356 Level 3 Est. Patient 13:53:19 STUBBER Mitch luis [facility] CPT-56507 Level 3 Est. Patient 19:19:37 STUBBER Mitch luis [facility] CPT-24725 Level 3 Est. Patient 13:25:53 STUBBER Tavo toure MD [facility] CPT-02509 Level 3 Est. Patient 18:17:28 CDT Mitch luis [facility] CPT-55708 Level 3 Est. Patient 15:22:57 CDT Mitch luis [facility] CPT-20609 Level 3 Est. Patient 18:21:50 CDT Mitch Ambrose L janelle [facility] CPT-15592 Level 3 Est. Patient 18:20:38 CDT Mitch luis [facility] CPT-27289 Level 3 Est. Patient 15:37:55 CDT Mitch luis [facility] CPT-62348 Level 2 Est. Patient 15:54:44 CDT Carmine benton MD [facility] CPT-17747 Level 3 Est. Patient 21:46:01 STUBBER Mitch luis [facility] CPT-61725 Level 3 Est. Patient 22:15:50 CDT Mitch luis [facility] CPT-47837 Level 3 Est. Patient 10:48:15 CDT Mitch luis [facility] CPT-51585 Level 3 Est. Patient 23:20:57 CDT Tavo toure MD [facility] CPT-10845 Level 3 Est. Patient 16:26:13 CDT Mitch luis [facility] Procedures Code Procedure Name Date Entry Date Standard Desc ription CPT-JTINJ Asp/Joint Injection 18:47:02 CDT CPT-94758 Venipuncture Draw Fee 09:26:17 CDT CPT-86154 PT/INR - LAB USE ONLY 13:32:49 STUBBER CPT-81495 Venipuncture Draw Fee 13:32:49 STUBBER CPT-23748 PT/INR - LAB USE ONLY 10:34:49 STUBBER CPT-61166 Venipuncture Draw Fee 10:34:48 STUBBER CPT-68867 PT/INR - LAB USE ONLY 09:22:03 STUBBER CPT-69958 Venipuncture Draw Fee 09:22:02 STUBBER CPT-45149 Hemoccult IFOBT - LAB USE ONLY 10:27:22 CDT CPT-07689 Venipuncture Draw Fee 08:27:08 CDT CPT-03054 Liver Profile - LAB USE ONLY 08:27:07 CDT 2 CPT-57053 Microalbumin - LAB USE ONLY 08:27:07 CDT 20 25/05/09 CPT-19724 PT/INR - LAB USE ONLY 08:27:07 CDT CPT-76548 HGBA1C - LAB USE ONLY 08:27:07 CDT CPT-28346 CBC - LAB USE ONLY 08:27:07 CDT CPT-42807 Venipuncture Draw Fee 11:09:14 CDT CPT-15704 Venipuncture Draw Fee 08:32:21 STUBBER CPT-16765 Venipuncture Draw Fee 09:38:56 STUBBER CPT-79806 No Charge Offi Visit 21:36:07 CDT 1 CPT-78922 Venipuncture Draw Fee 10:13:28 STUBBER CPT-46072 Venipuncture Draw Fee 08:31:11 CDT CPT-96956 Aspir/Inject Med Joint 18:17:28 CDT CPT-18802 Venipuncture Draw Fee 10:13:30 CDT CPT-86288 Venipuncture Draw Fee 08:31:43 STUBBER CPT-JTINJ Joint Injection 18:34:50 CDT CPT-58151 Knee 3V 12:25:09 CDT CPT-19112 Venipuncture Draw Fee 12:15:57 CDT CPT-060 Medical Surveillance Exam 21:31:43 CDT 2011 CPT-29491 Venipuncture Draw Fee 08:32:05 STUBBER CPT-OV Office Visit 18:19:06 CDT
--- OUTSIDE RECORDS SUMMARY | 2020-01-18 13:37 | XMS REPORT | Clinical Summary ---
Author Author Admin, Mitch Leon Organization [facility] [employer] Address Unknown Phone Unavailable Allergies, Adverse Reactions, [...] [place] or graft EDEMA 782.3 Resolved Mitch Urbina [...] 1/2 tab po q day ERICKA BARBA 44221330461 Active Renee Oconnor LPN Active FAMOTIDINE 20 MG ORAL TABLET by mouth twice a day 2017 FAMOTIDINE 44900397432 No Longer Active Mitch Urbina DO Active COLCRYS 0.6 MG ORAL TABLET 1 tab qid prn gout C OLCHICINE 23170765516 No Longer Active Mitch Urbina DO Active GLIMEPIRIDE 2 MG ORAL TABLET 1 po BID GLIMEPIRID E 05252211965 Active Renee Oconnor LPN Active KEFLEX 500 MG ORAL CAPSULE 1 po qid CEPHALEXI N 81215807517 No Longer Active Mitch Urbina DO Active LOSARTAN POTASSIUM 100 MG ORAL TABLET 1 pill by mouth daily, for blood pressure LOSARTAN POTASSIUM 04307094949 Active Renee Oconnor LPN Active AMLODIPINE BESYLATE 5 MG ORAL TABLET 1 tablet by mouth daily 201 01/20/04 AMLODIPINE BESYLATE 17656028177 No Longer Active Joe fulton APRN Active MITIGARE 0.6 MG ORAL CAPSULE 2 capsules at onset of go ut pain, then take one capsule at 1 hour if symptoms persist. COLCHICINE 59 598674737 Active Mitch Urbina DO Active COUMADIN 1 MG ORAL TABLET 2 tabs orally daily with the 5mg tab to equal 7mg daily WARFARIN SODIUM 70933271243 Active Mitch Urbina DO Active INVOKANA 100 MG ORAL TABLET 1 tablet orally daily CANAGLIFLOZIN 96992658938 Active Curly Coker MD Active MINOXIDIL 2.5 MG ORAL TABLET 1 tablet daily for high blood press ure MINOXIDIL 08966581814 Active Renee Oconnor LPN Active MECLIZINE HCL 25 MG ORAL TABLET 1 po tid 3 days, then 1/2 ta b tid 3 days MECLIZINE HCL 74465120548 No Longer Active Corey SEGURA Active ALLOPURINOL 300 MG ORAL TABLET Take 1 tablet by mouth daily 2012 ALLOPURINOL 69043293496 No Longer Active Corey SEGURA Active CLONIDINE HCL 0.1 MG ORAL TABLET 1 po bid 7 days, then 1/2 t ab po bid 7 days CLONIDINE HCL 25665563637 No Longer Active Corey SEGURA Active COUMADIN 5 MG ORAL TABLET 1 tab PO daily WARFAR IN SODIUM 37677477376 Active Curly Coker MD Active COUMADIN 4 MG ORAL TABLET 1 tablet daily WARFAR IN SODIUM 21628871642 No Longer Active Corey SEGURA Active POLYTRIM 93023-2.1 UNIT/ML-% OPHTHALMIC SOLUTION 1 rui p in affected eye every 3 hours while awake x 7 days POLYMYXIN B-TRIMETHOP RIM 13697820764 No Longer Active Corey SEGURA Active LOSARTAN POTASSIUM-HCTZ 100-12.5 MG ORAL TABLET 1 by m outh daily for high blood pressure LOSARTAN POTASSIUM-HCTZ 14808791641 No Longer A ctive Mitch Urbina DO Active LISINOPRIL-HYDROCHLOROTHIAZIDE 20-12.5 MG ORAL TABLET 1 tab by m outh daily LISINOPRIL-HYDROCHLOROTHIAZIDE 58480736783 No Longer Active Mitch Urbina DO Active LISINOPRIL 20 MG ORAL TABLET 1 tab po at HS LIS INOPRIL 64372883004 No Longer Active Mitch Urbina DO Active COUMADIN 5 MG ORAL TABLET 1 by mouth every other day 2 WARFARIN SODIUM 83538687648 No Longer Active Mitch Urbina DO Active COUMADIN 6 MG ORAL TABLET 1 by mouth every other day 2 WARFARIN SODIUM 34106697615 No Longer Active Mitch Urbina DO Active SIMVASTATIN 40 MG ORAL TABLET 1 tab daily at bedtime SIMVASTATIN 73473089495 Active Renee Oconnor LPN Active SIMVASTATIN 20 MG ORAL TABLET 1 tab daily at bedtime 2 SIMVASTATIN 02662057000 No Longer Active Mitch Urbina DO Active LOVENOX 100 MG/ML SUBCUTANEOUS SOLUTION One injection twice a da y ENOXAPARIN SODIUM 21978736508 No Longer Active Carmine Yusuf MD Active JANUVIA 50 MG ORAL TABLET Take one by mouth daily SITAGLIPTIN PHOSPHATE 51467832236 Active Mitch Urbina DO Active JANUVIA 100 MG ORAL TABLET 1/2 by mouth every day 2011 SITAGLIPTIN PHOSPHATE 93476053298 No Longer Active Bijal Segal RN Acti ve METFORMIN HCL 500 MG ORAL TABLET 2 by mouth twice daily METFORMIN HCL 46977227899 Active Renee Oconnor LEASING MACHINE TENDER Active COLCRYS 0.6 MG ORAL TABLET 1 po q 6 hours prn gout pain COLCHICINE 72339769818 No Longer Active Camila Reese Active LISINOPRIL 5 MG ORAL TABLET 1 by mouth every day 11/17 LISINOPRIL 88431487429 No Longer Active Nguyen Perez Active KLOR-CON 20 MEQ ORAL PACKET Take one by mouth daily 20 09/10/08 POTASSIUM CHLORIDE 57466902581 No Longer Active Nguyen Perez Active FUROSEMIDE 40 MG ORAL TABLET 1 by mouth daily F UROSEMIDE 75052849160 No Longer Active Nguyen Perez Active PROVIGIL 100 MG ORAL TABLET Take one by mouth daily 08/20/04 MODAFINIL 89409579456 No Longer Active Mitch Urbina DO Active BACTRIM DS 800-160 MG ORAL TABLET 1 tab by mouth twice daily 201 10/19/09 TRIMETHOPRIM-SULFAMETHOXAZOLE 10473851053 No Longer Active Elian Hays MD Active ADULT ASPIRIN LOW STRENGTH 81 MG ORAL TABLET DISINTEGR ATING 1 by mouth every daily ASPIRIN 02023599053 Active Mitch Urbina DO Ac tive METOPROLOL TARTRATE 50 MG ORAL TABLET 1 by mouth twice daily METOPROLOL TARTRATE 68203996070 Active Mitch Urbina DO Active BACTRIM DS 800-160 MG ORAL TABLET 1 tab by mouth twice daily 201 10/19/09 BACTRIM DS 800-160 MG ORAL TABLET 315807 TRIMETHOPRIM-SULFAMETHOXAZOLE Inactive PROVIGIL 100 MG ORAL TABLET Take one by mouth daily 08/20/04 PROVIGIL 100 MG ORAL TABLET 660263 MODAFINIL Inactive FUROSEMIDE 40 MG ORAL TABLET 1 by mouth daily FUROSEMIDE 40 MG ORAL TABLET 612532 FUROSEMIDE Inactive KLOR-CON 20 MEQ ORAL PACKET Take one by mouth daily 09/10/08 KLOR- CON 20 MEQ ORAL PACKET 0117985 POTASSIUM CHLORIDE Inactive LISINOPRIL 5 MG ORAL TABLET 1 by mouth every day 11/17 LISINOPRIL 5 MG ORAL TABLET 295480 LISINOPRIL Inactive COLCRYS 0.6 MG ORAL TABLET 1 po q 6 hours prn gout pain COLCRYS 0.6 MG ORAL TABLET 736475 COLCHICINE Inactive JANUVIA 100 MG ORAL TABLET 1/2 by mouth every day 2011 JANUVIA 100 MG ORAL TABLET SITAGLIPTIN PHOSPHATE Inactive SIMVASTATIN 20 MG ORAL TABLET 1 tab daily at bedtime 2 SIMVASTATIN 20 MG ORAL TABLET 666505 SIMVASTATIN Inactive COUMADIN 6 MG ORAL TABLET 1 by mouth every other day COUMADIN 6 MG ORAL TABLET 229774 WARFARIN SODIUM Inactive COUMADIN 5 MG ORAL TABLET 1 by mouth every other day COUMADIN 5 MG ORAL TABLET 611855 WARFARIN SODIUM Inactive LISINOPRIL 20 MG ORAL TABLET 1 tab po at HS LISINOPRIL 20 MG ORAL TABLET 927520 LISINOPRIL Inactive LISINOPRIL-HYDROCHLOROTHIAZIDE 20-12.5 MG ORAL TABLET 1 tab by m outh daily LISINOPRIL-HYDROCHLOROTHIAZIDE 20-12.5 MG ORAL TABLET 893785 LISINOPRIL-HYDROCHLOROTHIAZIDE Inactive POLYTRIM 77050-6.1 UNIT/ML-% OPHTHALMIC SOLUTION 1 rui p in affected eye every 3 hours while awake x 7 days POLYTRIM 1000 0-0.1 UNIT/ML-% OPHTHALMIC SOLUTION 799580 POLYMYXIN B-TRIMETHOPRIM Inactive COUMADIN 4 MG ORAL TABLET 1 tablet daily COUMADIN 4 MG ORAL TABLET 021991 WARFARIN SODIUM Inactive CLONIDINE HCL 0.1 MG ORAL TABLET 1 po bid 7 days, then 1/2 t ab po bid 7 days CLONIDINE HCL 0.1 MG ORAL TABLET 856068 CLONIDIN E HCL Inactive ALLOPURINOL 300 MG ORAL TABLET Take 1 tablet by mouth daily 2012 ALLOPURINOL 300 MG ORAL TABLET 834692 ALLOPURINOL I nactive MECLIZINE HCL 25 MG ORAL TABLET 1 po tid 3 days, then 1/2 ta b tid 3 days MECLIZINE HCL 25 MG ORAL TABLET 877655 MECLIZINE HCL Inactive AMLODIPINE BESYLATE 5 MG ORAL TABLET 1 tablet by mouth daily 201 01/20/04 AMLODIPINE BESYLATE 5 MG ORAL TABLET 829843 AMLODIPINE BESYLATE Inactive KEFLEX 500 MG ORAL CAPSULE 1 po qid K EFLEX 500 MG ORAL CAPSULE 346827 CEPHALEXIN Inactive COLCRYS 0.6 MG ORAL TABLET 1 tab qid prn gout COLCRYS 0.6 MG ORAL TABLET 223503 COLCHICINE Inactive FAMOTIDINE 20 MG ORAL TABLET by mouth twice a day 2017 FAMOTIDINE 20 MG ORAL TABLET 934883 FAMOTIDINE Inactive LOVENOX 100 MG/ML SUBCUTANEOUS SOLUTION One injection twice a da y LOVENOX 100 MG/ML SUBCUTANEOUS SOLUTION 061825 ENOXAPAR IN SODIUM Inactive Vital Signs Date [...] 247 mg/dL 30-200 cholesterol, serum 136 mg/dL 013-870 5026/12/06 alanine aminotransferase (SGPT), serum 30 U/L 12-78 bilirubin, serum, total 0.80 mg/dL 0.00-1.00 hemoglobin A1C, blood, as % of total hemoglobin 6.4 % 4.3-6.0 Encounters Code Encounter Date Provider Facility CPT-47430 Level 3 Est. Patient 18:25:53 CDT Mitch luis DO [facility]-09939 Level 3 Est. Patient 19:43:34 CDT Mitch W Nona luis [facility] CPT-24543 Level 4 Est. Patient 09:30:18 CDT Mitch luis [facility] CPT-36700 Level 3 Est. Patient 15:10:14 CDT Devonjustincarlitos kamara [facility]-05662 Level 3 Est. Patient 15:03:46 CDT Devonsonya Jason [facility]-53968 Level 3 Est. Patient 14:21:06 CDT Mitch luis [facility] CPT-27474 Level 3 Est. Patient 14:52:06 CDT Joe Jason [facility]-63408 Level 3 Est. Patient 09:34:30 NUTRITION HELPER Mitch luis [facility]-62594 Level 3 Est. Patient 09:37:15 CDT Mitch luis [facility] CPT-77216 Level 3 Est. Patient 17:01:00 NUTRITION HELPER Mitch luis [facility] CPT-14025 Level 3 Est. Patient 13:53:19 NUTRITION HELPER Mitch luis [facility] CPT-91062 Level 3 Est. Patient 19:19:37 NUTRITION HELPER Mitch luis [facility] CPT-42242 Level 3 Est. Patient 13:25:53 NUTRITION HELPER Tavo toure MD [facility] CPT-47864 Level 3 Est. Patient 18:17:28 CDT Mitch luis [facility] CPT-05446 Level 3 Est. Patient 15:22:57 CDT Mitch luis [facility] CPT-37871 Level 3 Est. Patient 18:21:50 CDT Mitch Ambrose L janelle [facility] CPT-23319 Level 3 Est. Patient 18:20:38 CDT Mitch luis [facility] CPT-31433 Level 3 Est. Patient 15:37:55 CDT Mitch luis [facility] CPT-82505 Level 2 Est. Patient 15:54:44 CDT Carmine benton MD [facility] CPT-53561 Level 3 Est. Patient 21:46:01 NUTRITION HELPER Mitch luis [facility] CPT-30507 Level 3 Est. Patient 22:15:50 CDT Mitch luis [facility] CPT-95384 Level 3 Est. Patient 10:48:15 CDT Mitch luis [facility] CPT-88788 Level 3 Est. Patient 23:20:57 CDT Tavo toure MD [facility] CPT-47684 Level 3 Est. Patient 16:26:13 CDT Mitch luis [facility] Procedures Code Procedure Name Date Entry Date Standard Desc ription CPT-JTINJ Asp/Joint Injection 18:47:02 CDT CPT-81123 Venipuncture Draw Fee 09:26:17 CDT CPT-99804 PT/INR - LAB USE ONLY 13:32:49 NUTRITION HELPER CPT-90690 Venipuncture Draw Fee 13:32:49 NUTRITION HELPER CPT-05200 PT/INR - LAB USE ONLY 10:34:49 NUTRITION HELPER CPT-66525 Venipuncture Draw Fee 10:34:48 NUTRITION HELPER CPT-77059 PT/INR - LAB USE ONLY 09:22:03 NUTRITION HELPER CPT-64824 Venipuncture Draw Fee 09:22:02 NUTRITION HELPER CPT-14805 Hemoccult IFOBT - LAB USE ONLY 10:27:22 CDT CPT-91788 Venipuncture Draw Fee 08:27:08 CDT CPT-14620 Liver Profile - LAB USE ONLY 08:27:07 CDT 2 CPT-22335 Microalbumin - LAB USE ONLY 08:27:07 CDT 20 25/05/09 CPT-50923 PT/INR - LAB USE ONLY 08:27:07 CDT CPT-60449 HGBA1C - LAB USE ONLY 08:27:07 CDT CPT-74935 CBC - LAB USE ONLY 08:27:07 CDT CPT-12639 Venipuncture Draw Fee 11:09:14 CDT CPT-17000 Venipuncture Draw Fee 08:32:21 NUTRITION HELPER CPT-57867 Venipuncture Draw Fee 09:38:56 NUTRITION HELPER CPT-76980 No Charge Offi Visit 21:36:07 CDT 1 CPT-25175 Venipuncture Draw Fee 10:13:28 NUTRITION HELPER CPT-43217 Venipuncture Draw Fee 08:31:11 CDT CPT-65518 Aspir/Inject Med Joint 18:17:28 CDT CPT-68817 Venipuncture Draw Fee 10:13:30 CDT CPT-63311 Venipuncture Draw Fee 08:31:43 NUTRITION HELPER CPT-JTINJ Joint Injection 18:34:50 CDT CPT-80520 Knee 3V 12:25:09 CDT CPT-30495 Venipuncture Draw Fee 12:15:57 CDT CPT-060 Medical Surveillance Exam 21:31:43 CDT 2011 CPT-11533 Venipuncture Draw Fee 08:32:05 NUTRITION HELPER CPT-OV Office Visit 18:19:06 CDT
--- OUTSIDE RECORDS SUMMARY | 2020-01-18 13:37 | XMS REPORT | Clinical Summary ---
[...] 1/2 tab po q day ERICKA BARBA 43302730178 Active Renee Oconnor LPN Active FAMOTIDINE 20 MG ORAL TABLET by mouth twice a day 2017 FAMOTIDINE 67942870364 No Longer Active Mitch Urbina DO Active COLCRYS 0.6 MG ORAL TABLET 1 tab qid prn gout C OLCHICINE 79717062043 No Longer Active Mitch Urbina DO Active GLIMEPIRIDE 2 MG ORAL TABLET 1 po BID GLIMEPIRID E 73887996016 Active Renee Oconnor LPN Active KEFLEX 500 MG ORAL CAPSULE 1 po qid CEPHALEXI N 91513091092 No Longer Active Mitch Urbina DO Active LOSARTAN POTASSIUM 100 MG ORAL TABLET 1 pill by mouth daily, for blood pressure LOSARTAN POTASSIUM 75585541729 Active Renee Oconnor LPN Active AMLODIPINE BESYLATE 5 MG ORAL TABLET 1 tablet by mouth daily 201 01/20/04 AMLODIPINE BESYLATE 87807381691 No Longer Active Joe fulton APRN Active MITIGARE 0.6 MG ORAL CAPSULE 2 capsules at onset of go ut pain, then take one capsule at 1 hour if symptoms persist. COLCHICINE 59 977188231 Active Mitch Urbina DO Active COUMADIN 1 MG ORAL TABLET 2 tabs orally daily with the 5mg tab to equal 7mg daily WARFARIN SODIUM 42602288196 Active Mitch Urbina DO Active INVOKANA 100 MG ORAL TABLET 1 tablet orally daily CANAGLIFLOZIN 08035985829 Active Curly Coker MD Active MINOXIDIL 2.5 MG ORAL TABLET 1 tablet daily for high blood press ure MINOXIDIL 42892304339 Active Renee Oconnor LPN Active MECLIZINE HCL 25 MG ORAL TABLET 1 po tid 3 days, then 1/2 ta b tid 3 days MECLIZINE HCL 18037075736 No Longer Active Corey SEGURA Active ALLOPURINOL 300 MG ORAL TABLET Take 1 tablet by mouth daily 2012 ALLOPURINOL 96486083576 No Longer Active Corey SEGURA Active CLONIDINE HCL 0.1 MG ORAL TABLET 1 po bid 7 days, then 1/2 t ab po bid 7 days CLONIDINE HCL 97229635230 No Longer Active Corey SEGURA Active COUMADIN 5 MG ORAL TABLET 1 tab PO daily WARFAR IN SODIUM 96670700042 Active Curly Coker MD Active COUMADIN 4 MG ORAL TABLET 1 tablet daily WARFAR IN SODIUM 10977847170 No Longer Active Corey SEGURA Active POLYTRIM 08327-3.1 UNIT/ML-% OPHTHALMIC SOLUTION 1 rui p in affected eye every 3 hours while awake x 7 days POLYMYXIN B-TRIMETHOP RIM 92045466164 No Longer Active Corey SEGURA Active LOSARTAN POTASSIUM-HCTZ 100-12.5 MG ORAL TABLET 1 by m outh daily for high blood pressure LOSARTAN POTASSIUM-HCTZ 76467957428 No Longer A ctive Mitch Urbina DO Active LISINOPRIL-HYDROCHLOROTHIAZIDE 20-12.5 MG ORAL TABLET 1 tab by m outh daily LISINOPRIL-HYDROCHLOROTHIAZIDE 07173285867 No Longer Active Mitch Urbina DO Active LISINOPRIL 20 MG ORAL TABLET 1 tab po at HS LIS INOPRIL 26353900484 No Longer Active Mitch Urbina DO Active COUMADIN 5 MG ORAL TABLET 1 by mouth every other day 2 WARFARIN SODIUM 60511262474 No Longer Active Mitch Urbina DO Active COUMADIN 6 MG ORAL TABLET 1 by mouth every other day 2 WARFARIN SODIUM 75299520972 No Longer Active Mitch Urbina DO Active SIMVASTATIN 40 MG ORAL TABLET 1 tab daily at bedtime SIMVASTATIN 19024108746 Active Renee Oconnor LPN Active SIMVASTATIN 20 MG ORAL TABLET 1 tab daily at bedtime 2 SIMVASTATIN 88191876534 No Longer Active Mitch Urbina DO Active LOVENOX 100 MG/ML SUBCUTANEOUS SOLUTION One injection twice a da y ENOXAPARIN SODIUM 59511819297 No Longer Active Carmine Yusuf MD Active JANUVIA 50 MG ORAL TABLET Take one by mouth daily SITAGLIPTIN PHOSPHATE 57434531889 Active Mitch Urbina DO Active JANUVIA 100 MG ORAL TABLET 1/2 by mouth every day 2011 SITAGLIPTIN PHOSPHATE 79147408961 No Longer Active Bijal Segal RN Acti ve METFORMIN HCL 500 MG ORAL TABLET 2 by mouth twice daily METFORMIN HCL 90039259475 Active Renee Oconnor [employer] Active COLCRYS 0.6 MG ORAL TABLET 1 po q 6 hours prn gout pain COLCHICINE 99598763917 No Longer Active Camila Reese Active LISINOPRIL 5 MG ORAL TABLET 1 by mouth every day 11/17 LISINOPRIL 67815557798 No Longer Active Nguyen Perez Active KLOR-CON 20 MEQ ORAL PACKET Take one by mouth daily 20 09/10/08 POTASSIUM CHLORIDE 87813100235 No Longer Active Nguyen Perez Active FUROSEMIDE 40 MG ORAL TABLET 1 by mouth daily F UROSEMIDE 31629853889 No Longer Active Nguyen Perez Active PROVIGIL 100 MG ORAL TABLET Take one by mouth daily 08/20/04 MODAFINIL 40165864541 No Longer Active Mitch Urbina DO Active BACTRIM DS 800-160 MG ORAL TABLET 1 tab by mouth twice daily 201 10/19/09 TRIMETHOPRIM-SULFAMETHOXAZOLE 51897829892 No Longer Active Elian Hays MD Active ADULT ASPIRIN LOW STRENGTH 81 MG ORAL TABLET DISINTEGR ATING 1 by mouth every daily ASPIRIN 97099425109 Active Mitch Urbina DO Ac tive METOPROLOL TARTRATE 50 MG ORAL TABLET 1 by mouth twice daily METOPROLOL TARTRATE 01153585824 Active Mitch Urbina DO Active ALLOPURINOL 300 MG ORAL TABLET Take 1 tablet by mouth daily 2012 ALLOPURINOL 300 MG ORAL TABLET 867414 ALLOPURINOL I nactive BACTRIM DS 800-160 MG ORAL TABLET 1 tab by mouth twice daily 201 10/19/09 BACTRIM DS 800-160 MG ORAL TABLET 445229 TRIMETHOPRIM-SULFAMETHOXAZOLE Inactive CLONIDINE HCL 0.1 MG ORAL TABLET 1 po bid 7 days, then 1/2 t ab po bid 7 days CLONIDINE HCL 0.1 MG ORAL TABLET 100885 CLONIDIN E HCL Inactive COUMADIN 5 MG ORAL TABLET 1 by mouth every other day 2 COUMADIN 5 MG ORAL TABLET 555181 WARFARIN SODIUM Inactive FUROSEMIDE 40 MG ORAL TABLET 1 by mouth daily FUROSEMIDE 40 MG ORAL TABLET 176831 FUROSEMIDE Inactive KEFLEX 500 MG ORAL CAPSULE 1 po qid K EFLEX 500 MG ORAL CAPSULE 298960 CEPHALEXIN Inactive KLOR-CON 20 MEQ ORAL PACKET Take one by mouth daily 20 09/10/08 KLOR- CON 20 MEQ ORAL PACKET 5083023 POTASSIUM CHLORIDE Inactive LISINOPRIL 20 MG ORAL TABLET 1 tab po at HS LISINOPRIL 20 MG ORAL TABLET 187997 LISINOPRIL Inactive POLYTRIM 77094-8.1 UNIT/ML-% OPHTHALMIC SOLUTION 1 rui p in affected eye every 3 hours while awake x 7 days POLYTRIM 1000 0-0.1 UNIT/ML-% OPHTHALMIC SOLUTION 102664 POLYMYXIN B-TRIMETHOPRIM Inactive AMLODIPINE BESYLATE 5 MG ORAL TABLET 1 tablet by mouth daily 201 01/20/04 AMLODIPINE BESYLATE 5 MG ORAL TABLET 643085 AMLODIPINE BESYLATE Inactive FAMOTIDINE 20 MG ORAL TABLET by mouth twice a day 2017 FAMOTIDINE 20 MG ORAL TABLET 649934 FAMOTIDINE Inactive LISINOPRIL 5 MG ORAL TABLET 1 by mouth every day 11/17 LISINOPRIL 5 MG ORAL TABLET 729407 LISINOPRIL Inactive LISINOPRIL-HYDROCHLOROTHIAZIDE 20-12.5 MG ORAL TABLET 1 tab by m outh daily LISINOPRIL-HYDROCHLOROTHIAZIDE 20-12.5 MG ORAL TABLET 743780 LISINOPRIL-HYDROCHLOROTHIAZIDE Inactive SIMVASTATIN 20 MG ORAL TABLET 1 tab daily at bedtime 2 SIMVASTATIN 20 MG ORAL TABLET 275190 SIMVASTATIN Inactive COUMADIN 4 MG ORAL TABLET 1 tablet daily COUMADIN 4 MG ORAL TABLET 849917 WARFARIN SODIUM Inactive MECLIZINE HCL 25 MG ORAL TABLET 1 po tid 3 days, then 1/2 ta b tid 3 days MECLIZINE HCL 25 MG ORAL TABLET 046119 MECLIZINE HCL Inactive COUMADIN 6 MG ORAL TABLET 1 by mouth every other day 2 COUMADIN 6 MG ORAL TABLET 161241 WARFARIN SODIUM Inactive LOVENOX 100 MG/ML SUBCUTANEOUS SOLUTION One injection twice a da y LOVENOX 100 MG/ML SUBCUTANEOUS SOLUTION 886728 ENOXAPAR IN SODIUM Inactive PROVIGIL 100 MG ORAL TABLET Take one by mouth daily 08/20/04 PROVIGIL 100 MG ORAL TABLET 219553 MODAFINIL Inactive JANUVIA 100 MG ORAL TABLET 1/2 by mouth every day 2011 JANUVIA 100 MG ORAL TABLET SITAGLIPTIN PHOSPHATE Inactive COLCRYS 0.6 MG ORAL TABLET 1 po q 6 hours prn gout pain COLCRYS 0.6 MG ORAL TABLET 231743 COLCHICINE Inactive COLCRYS 0.6 MG ORAL TABLET 1 tab qid prn gout COLCRYS 0.6 MG ORAL TABLET 102108 COLCHICINE Inactive Vital Signs Date Name Value [...] 130-200 Encounters Code Encounter Date Provider Facility CPT-82562 Level 3 Est. Patient 18:25:53 CDT Mitch luis [facility] CPT-72133 Level 3 Est. Patient 19:43:34 CDT Mitch luis [facility] CPT-95003 Level 4 Est. Patient 09:30:18 CDT Mitch W L janelle [facility] CPT-48637 Level 3 Est. Patient 15:10:14 CDT Joe kamara [facility]-00019 Level 3 Est. Patient 15:03:46 CDT Joe kamara [facility]-48644 Level 3 Est. Patient 14:21:06 CDT Mitch Ambrose L janelle [facility]-19206 Level 3 Est. Patient 14:52:06 CDT Devonsonya Jason kamara [facility] CPT-84919 Level 3 Est. Patient 09:34:30 TAPER/FINISHER Mitch luis [facility]-32330 Level 3 Est. Patient 09:37:15 CDT Mitch Ambrose L janelle [facility]-98474 Level 3 Est. Patient 17:01:00 TAPER/FINISHER Mitch luis [facility] CPT-04205 Level 3 Est. Patient 13:53:19 TAPER/FINISHER Mitch Ambrose L janelle [facility] CPT-18583 Level 3 Est. Patient 19:19:37 TAPER/FINISHER Mitch W L janelle [facility] CPT-94285 Level 3 Est. Patient 13:25:53 TAPER/FINISHER Tavo toure MD [facility]-22836 Level 3 Est. Patient 18:17:28 CDT Mitch W Nona luis [facility] CPT-46452 Level 3 Est. Patient 15:22:57 CDT Mitch Ambrose L janelle [facility] CPT-37484 Level 3 Est. Patient 18:21:50 CDT Mitch W L ee [facility] CPT-47725 Level 3 Est. Patient 18:20:38 CDT Mitch W L ee [facility] CPT-61362 Level 3 Est. Patient 15:37:55 CDT Mitch luis [facility] CPT-16304 Level 2 Est. Patient 15:54:44 CDT Carmine benton MD [facility] CPT-47267 Level 3 Est. Patient 21:46:01 TAPER/FINISHER Mitch luis [facility] CPT-94545 Level 3 Est. Patient 22:15:50 CDT Mitch luis [facility] CPT-73858 Level 3 Est. Patient 10:48:15 CDT Mitch luis [facility] CPT-28642 Level 3 Est. Patient 23:20:57 CDT Tavo toure MD [facility] CPT-46170 Level 3 Est. Patient 16:26:13 CDT Mitch luis [facility] Procedures Code Procedure Name Date Entry Date Standard Desc ription CPT-JTINJ Asp/Joint Injection 18:47:02 CDT CPT-75400 Venipuncture Draw Fee 09:26:17 CDT CPT-61636 PT/INR - LAB USE ONLY 13:32:49 TAPER/FINISHER CPT-94489 Venipuncture Draw Fee 13:32:49 TAPER/FINISHER CPT-27753 PT/INR - LAB USE ONLY 10:34:49 TAPER/FINISHER CPT-40939 Venipuncture Draw Fee 10:34:48 TAPER/FINISHER CPT-59299 PT/INR - LAB USE ONLY 09:22:03 TAPER/FINISHER CPT-37531 Venipuncture Draw Fee 09:22:02 TAPER/FINISHER CPT-17526 Hemoccult IFOBT - LAB USE ONLY 10:27:22 CDT CPT-19138 Venipuncture Draw Fee 08:27:08 CDT CPT-75515 Liver Profile - LAB USE ONLY 08:27:07 CDT 2 CPT-41068 Microalbumin - LAB USE ONLY 08:27:07 CDT 20 25/05/09 CPT-14222 PT/INR - LAB USE ONLY 08:27:07 CDT CPT-23464 HGBA1C - LAB USE ONLY 08:27:07 CDT CPT-08667 CBC - LAB USE ONLY 08:27:07 CDT CPT-90931 Venipuncture Draw Fee 11:09:14 CDT CPT-13222 Venipuncture Draw Fee 08:32:21 TAPER/FINISHER CPT-68653 Venipuncture Draw Fee 09:38:56 TAPER/FINISHER CPT-94004 No Charge Offi Visit 21:36:07 CDT 1 CPT-68014 Venipuncture Draw Fee 10:13:28 TAPER/FINISHER CPT-00162 Venipuncture Draw Fee 08:31:11 CDT CPT-07779 Aspir/Inject Med Joint 18:17:28 CDT CPT-31055 Venipuncture Draw Fee 10:13:30 CDT CPT-80257 Venipuncture Draw Fee 08:31:43 TAPER/FINISHER CPT-JTINJ Joint Injection 18:34:50 CDT CPT-93145 Knee 3V 12:25:09 CDT CPT-10592 Venipuncture Draw Fee 12:15:57 CDT CPT-060 Medical Surveillance Exam 21:31:43 CDT 2011 CPT-81019 Venipuncture Draw Fee 08:32:05 TAPER/FINISHER 2011/11/ 23 CPT-OV Office Visit 18:19:06 CDT
--- OUTSIDE RECORDS SUMMARY | 2020-01-18 13:37 | XMS REPORT | Clinical Summary ---
Author Author Admin, Mitch Leon Organization [facility] Address Unknown Phone Unavailable Allergies, Adverse [...] Coronary atherosclerosis of unspecified type of vessel, [place] or graft EDEMA 782.3 Resolved Mitch [...] by other means Narcolepsy 347.00 Active Mitch rUbina DO 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 of [...] 1/2 tab po q day ERICKA BARBA 64795122048 Active Renee Oconnor LPN Active FAMOTIDINE 20 MG ORAL TABLET by mouth twice a day 2017 FAMOTIDINE 11044271320 No Longer Active Mitch Urbina DO Active COLCRYS 0.6 MG ORAL TABLET 1 tab qid prn gout C OLCHICINE 37737946397 No Longer Active Mitch Urbina DO Active GLIMEPIRIDE 2 MG ORAL TABLET 1 po BID GLIMEPIRID E 33012335525 Active Renee Oconnor LPN Active KEFLEX 500 MG ORAL CAPSULE 1 po qid CEPHALEXI N 39029167111 No Longer Active Mitch Urbina DO Active LOSARTAN POTASSIUM 100 MG ORAL TABLET 1 pill by mouth daily, for blood pressure LOSARTAN POTASSIUM 57289534332 Active Renee Oconnor LPN Active AMLODIPINE BESYLATE 5 MG ORAL TABLET 1 tablet by mouth daily 201 01/20/04 AMLODIPINE BESYLATE 83344588713 No Longer Active Joe fulton APRN Active MITIGARE 0.6 MG ORAL CAPSULE 2 capsules at onset of go ut pain, then take one capsule at 1 hour if symptoms persist. COLCHICINE 59 339664787 Active Mitch Urbina DO Active COUMADIN 1 MG ORAL TABLET 2 tabs orally daily with the 5mg tab to equal 7mg daily WARFARIN SODIUM 31238541589 Active Mitch Urbina DO Active INVOKANA 100 MG ORAL TABLET 1 tablet orally daily CANAGLIFLOZIN 80228300666 Active Curly Coker MD Active MINOXIDIL 2.5 MG ORAL TABLET 1 tablet daily for high blood press ure MINOXIDIL 93124594141 Active Renee Oconnor LPN Active MECLIZINE HCL 25 MG ORAL TABLET 1 po tid 3 days, then 1/2 ta b tid 3 days MECLIZINE HCL 61020184355 No Longer Active Corey SEGURA Active ALLOPURINOL 300 MG ORAL TABLET Take 1 tablet by mouth daily 2012 ALLOPURINOL 16756117069 No Longer Active Corey SEGURA Active CLONIDINE HCL 0.1 MG ORAL TABLET 1 po bid 7 days, then 1/2 t ab po bid 7 days CLONIDINE HCL 94778357085 No Longer Active Corey SEGURA Active COUMADIN 5 MG ORAL TABLET 1 tab PO daily WARFAR IN SODIUM 28106070126 Active Curly Coker MD Active COUMADIN 4 MG ORAL TABLET 1 tablet daily WARFAR IN SODIUM 07664405434 No Longer Active Corey SEGURA Active POLYTRIM 16366-4.1 UNIT/ML-% OPHTHALMIC SOLUTION 1 rui p in affected eye every 3 hours while awake x 7 days POLYMYXIN B-TRIMETHOP RIM 27979973988 No Longer Active Corey SEGURA Active LOSARTAN POTASSIUM-HCTZ 100-12.5 MG ORAL TABLET 1 by m outh daily for high blood pressure LOSARTAN POTASSIUM-HCTZ 37567977400 No Longer A ctive Mitch Urbina DO Active LISINOPRIL-HYDROCHLOROTHIAZIDE 20-12.5 MG ORAL TABLET 1 tab by m outh daily LISINOPRIL-HYDROCHLOROTHIAZIDE 49111397106 No Longer Active Mitch Urbina DO Active LISINOPRIL 20 MG ORAL TABLET 1 tab po at HS LIS INOPRIL 10175163387 No Longer Active Mitch Urbina DO Active COUMADIN 5 MG ORAL TABLET 1 by mouth every other day 2 WARFARIN SODIUM 62057248378 No Longer Active Mitch Urbina DO Active COUMADIN 6 MG ORAL TABLET 1 by mouth every other day 2 WARFARIN SODIUM 59165014008 No Longer Active Mitch Urbina DO Active SIMVASTATIN 40 MG ORAL TABLET 1 tab daily at bedtime SIMVASTATIN 23285495319 Active Renee Oconnor LPN Active SIMVASTATIN 20 MG ORAL TABLET 1 tab daily at bedtime 2 SIMVASTATIN 28182266274 No Longer Active Mitch Urbina DO Active LOVENOX 100 MG/ML SUBCUTANEOUS SOLUTION One injection twice a da y ENOXAPARIN SODIUM 80655769806 No Longer Active Carmine Yusuf MD Active JANUVIA 50 MG ORAL TABLET Take one by mouth daily SITAGLIPTIN PHOSPHATE 98387537758 Active Mitch Urbina DO Active JANUVIA 100 MG ORAL TABLET 1/2 by mouth every day 2011 SITAGLIPTIN PHOSPHATE 94115409463 No Longer Active Bijal Segal RN Acti ve METFORMIN HCL 500 MG ORAL TABLET 2 by mouth twice daily METFORMIN HCL 31746035573 Active Renee Oconnor [employer] Active COLCRYS 0.6 MG ORAL TABLET 1 po q 6 hours prn gout pain COLCHICINE 35773573236 No Longer Active Camila Reese Active LISINOPRIL 5 MG ORAL TABLET 1 by mouth every day 11/17 LISINOPRIL 23807316266 No Longer Active Nguyen Perez Active KLOR-CON 20 MEQ ORAL PACKET Take one by mouth daily 20 09/10/08 POTASSIUM CHLORIDE 34554130188 No Longer Active Nguyen Perez Active FUROSEMIDE 40 MG ORAL TABLET 1 by mouth daily F UROSEMIDE 06166069231 No Longer Active Nguyen Perez Active PROVIGIL 100 MG ORAL TABLET Take one by mouth daily 08/20/04 MODAFINIL 48834993313 No Longer Active Mitch Urbina DO Active BACTRIM DS 800-160 MG ORAL TABLET 1 tab by mouth twice daily 201 10/19/09 TRIMETHOPRIM-SULFAMETHOXAZOLE 06530079076 No Longer Active Elian Hays MD Active ADULT ASPIRIN LOW STRENGTH 81 MG ORAL TABLET DISINTEGR ATING 1 by mouth every daily ASPIRIN 85477335293 Active Mitch Urbina DO Ac tive METOPROLOL TARTRATE 50 MG ORAL TABLET 1 by mouth twice daily METOPROLOL TARTRATE 17938896669 Active Mitch Urbina DO Active BACTRIM DS 800-160 MG ORAL TABLET 1 tab by mouth twice daily 201 10/19/09 BACTRIM DS 800-160 MG ORAL TABLET 766856 TRIMETHOPRIM-SULFAMETHOXAZOLE Inactive PROVIGIL 100 MG ORAL TABLET Take one by mouth daily 08/20/04 PROVIGIL 100 MG ORAL TABLET 101671 MODAFINIL Inactive FUROSEMIDE 40 MG ORAL TABLET 1 by mouth daily FUROSEMIDE 40 MG ORAL TABLET 255423 FUROSEMIDE Inactive KLOR-CON 20 MEQ ORAL PACKET Take one by mouth daily 09/10/08 KLOR- CON 20 MEQ ORAL PACKET 0050708 POTASSIUM CHLORIDE Inactive LISINOPRIL 5 MG ORAL TABLET 1 by mouth every day 11/17 LISINOPRIL 5 MG ORAL TABLET 595604 LISINOPRIL Inactive COLCRYS 0.6 MG ORAL TABLET 1 po q 6 hours prn gout pain COLCRYS 0.6 MG ORAL TABLET 615084 COLCHICINE Inactive JANUVIA 100 MG ORAL TABLET 1/2 by mouth every day 2011 JANUVIA 100 MG ORAL TABLET SITAGLIPTIN PHOSPHATE Inactive SIMVASTATIN 20 MG ORAL TABLET 1 tab daily at bedtime 2 SIMVASTATIN 20 MG ORAL TABLET 716610 SIMVASTATIN Inactive COUMADIN 6 MG ORAL TABLET 1 by mouth every other day COUMADIN 6 MG ORAL TABLET 263120 WARFARIN SODIUM Inactive COUMADIN 5 MG ORAL TABLET 1 by mouth every other day COUMADIN 5 MG ORAL TABLET 530113 WARFARIN SODIUM Inactive LISINOPRIL 20 MG ORAL TABLET 1 tab po at HS LISINOPRIL 20 MG ORAL TABLET 927469 LISINOPRIL Inactive LISINOPRIL-HYDROCHLOROTHIAZIDE 20-12.5 MG ORAL TABLET 1 tab by m outh daily LISINOPRIL-HYDROCHLOROTHIAZIDE 20-12.5 MG ORAL TABLET 359292 LISINOPRIL-HYDROCHLOROTHIAZIDE Inactive POLYTRIM 63150-1.1 UNIT/ML-% OPHTHALMIC SOLUTION 1 rui p in affected eye every 3 hours while awake x 7 days POLYTRIM 1000 0-0.1 UNIT/ML-% OPHTHALMIC SOLUTION 907726 POLYMYXIN B-TRIMETHOPRIM Inactive COUMADIN 4 MG ORAL TABLET 1 tablet daily COUMADIN 4 MG ORAL TABLET 321093 WARFARIN SODIUM Inactive CLONIDINE HCL 0.1 MG ORAL TABLET 1 po bid 7 days, then 1/2 t ab po bid 7 days CLONIDINE HCL 0.1 MG ORAL TABLET 895040 CLONIDIN E HCL Inactive ALLOPURINOL 300 MG ORAL TABLET Take 1 tablet by mouth daily 2012 ALLOPURINOL 300 MG ORAL TABLET 111145 ALLOPURINOL I nactive MECLIZINE HCL 25 MG ORAL TABLET 1 po tid 3 days, then 1/2 ta b tid 3 days MECLIZINE HCL 25 MG ORAL TABLET 471910 MECLIZINE HCL Inactive AMLODIPINE BESYLATE 5 MG ORAL TABLET 1 tablet by mouth daily 201 01/20/04 AMLODIPINE BESYLATE 5 MG ORAL TABLET 946023 AMLODIPINE BESYLATE Inactive KEFLEX 500 MG ORAL CAPSULE 1 po qid K EFLEX 500 MG ORAL CAPSULE 788997 CEPHALEXIN Inactive COLCRYS 0.6 MG ORAL TABLET 1 tab qid prn gout COLCRYS 0.6 MG ORAL TABLET 859966 COLCHICINE Inactive FAMOTIDINE 20 MG ORAL TABLET by mouth twice a day 2017 FAMOTIDINE 20 MG ORAL TABLET 162034 FAMOTIDINE Inactive LOVENOX 100 MG/ML SUBCUTANEOUS SOLUTION One injection twice a da y LOVENOX 100 MG/ML SUBCUTANEOUS SOLUTION 722654 ENOXAPAR IN SODIUM Inactive Vital Signs Date [...] HGBA1C - Chemistry cholesterol, serum 136 mg/dL 401-054 9785/12/06 triglyceride, serum, fasting 247 mg/dL 30-200 HDL cholesterol, serum 41 mg/dL 32-60 LDL cholesterol, serum 46 mg/dL 0-130 aspartate aminotransferase (SGOT), serum 22 U/L 15-37 alanine aminotransferase (SGPT), serum 30 U/L 12-78 bilirubin, serum, total 0.80 mg/dL 0.00-1.00 hemoglobin A1C, blood, as % of total hemoglobin 6.4 % 4.3-6.0 Encounters Code Encounter Date Provider Facility CPT-49778 Level 3 Est. Patient 18:25:53 CDT Mitch luis [facility] CPT-56391 Level 3 Est. Patient 19:43:34 CDT Mitch W Nona luis [facility] CPT-85586 Level 4 Est. Patient 09:30:18 CDT Mitch luis [facility] CPT-96517 Level 3 Est. Patient 15:10:14 [facility] Level 3 Est. Patient 15:03:46 CDT Joe Jason [facility] CPT-73152 Level 3 Est. Patient 14:21:06 CDT Mitch luis [facility] CPT-29230 Level 3 Est. Patient 14:52:06 CDT Joe Jason [facility] CPT-30989 Level 3 Est. Patient 09:34:30 PROPERTY ADMINISTRATOR Mitch luis [facility]-92202 Level 3 Est. Patient 09:37:15 CDT Mitch luis [facility] CPT-96122 Level 3 Est. Patient 17:01:00 PROPERTY ADMINISTRATOR Mitch luis [facility] CPT-33940 Level 3 Est. Patient 13:53:19 PROPERTY ADMINISTRATOR Mitch luis [facility] CPT-48577 Level 3 Est. Patient 19:19:37 PROPERTY ADMINISTRATOR Mitch luis [facility] CPT-15713 Level 3 Est. Patient 13:25:53 PROPERTY ADMINISTRATOR Tavo toure MD [facility] CPT-66612 Level 3 Est. Patient 18:17:[address] [facility] CPT-18834 Level 3 Est. Patient 15:22:57 CDT Mitch luis [facility] CPT-81952 Level 3 Est. Patient 18:21:50 CDT Mitch luis [facility] CPT-65066 Level 3 Est. Patient 18:20:38 CDT Mitch luis [facility] CPT-65732 Level 3 Est. Patient 15:37:[address] [facility] CPT-59473 Level 2 Est. Patient 15:54:44 CDT Carmine benton MD [facility] CPT-44739 Level 3 Est. Patient 21:46:01 PROPERTY ADMINISTRATOR Mitch luis [facility] CPT-85364 Level 3 Est. Patient 22:15:[address] [facility] CPT-93499 Level 3 Est. Patient 10:48:[address] [facility] CPT-81206 Level 3 Est. Patient 23:20:57 CDT Tavo toure MD [facility] CPT-97451 Level 3 Est. Patient 16:26:[address] [facility] Procedures Code Procedure Name Date Entry Date Standard Desc ription CPT-JTINJ Asp/Joint Injection 18:47:02 CDT CPT-45435 Venipuncture Draw Fee 09:26:17 CDT CPT-67033 PT/INR - LAB USE ONLY 13:32:49 PROPERTY ADMINISTRATOR CPT-96202 Venipuncture Draw Fee 13:32:49 PROPERTY ADMINISTRATOR CPT-67961 PT/INR - LAB USE ONLY 10:34:49 PROPERTY ADMINISTRATOR CPT-87591 Venipuncture Draw Fee 10:34:48 PROPERTY ADMINISTRATOR CPT-63406 PT/INR - LAB USE ONLY 09:22:03 PROPERTY ADMINISTRATOR CPT-00532 Venipuncture Draw Fee 09:22:02 PROPERTY ADMINISTRATOR CPT-10453 Hemoccult IFOBT - LAB USE ONLY 10:27:22 CDT CPT-81121 Venipuncture Draw Fee 08:27:08 CDT CPT-53331 Liver Profile - LAB USE ONLY 08:27:07 CDT 2 CPT-98076 Microalbumin - LAB USE ONLY 08:27:07 CDT 20 25/05/09 CPT-83810 PT/INR - LAB USE ONLY 08:27:07 CDT CPT-28952 HGBA1C - LAB USE ONLY 08:27:07 CDT CPT-51402 CBC - LAB USE ONLY 08:27:07 CDT CPT-96652 Venipuncture Draw Fee 11:09:14 CDT CPT-58845 Venipuncture Draw Fee 08:32:21 PROPERTY ADMINISTRATOR CPT-73022 Venipuncture Draw Fee 09:38:56 PROPERTY ADMINISTRATOR CPT-00716 No Charge Offi Visit 21:36:07 CDT 1 CPT-93740 Venipuncture Draw Fee 10:13:28 PROPERTY ADMINISTRATOR CPT-27055 Venipuncture Draw Fee 08:31:11 CDT CPT-82707 Aspir/Inject Med Joint 18:17:28 CDT CPT-78122 Venipuncture Draw Fee 10:13:30 CDT CPT-63519 Venipuncture Draw Fee 08:31:43 PROPERTY ADMINISTRATOR CPT-JTINJ Joint Injection 18:34:50 CDT CPT-04967 Knee 3V 12:25:09 CDT CPT-21438 Venipuncture Draw Fee 12:15:57 CDT CPT-060 Medical Surveillance Exam 21:31:43 CDT 2011 CPT-85667 Venipuncture Draw Fee 08:32:05 PROPERTY ADMINISTRATOR CPT-OV Office Visit 18:19:06 CDT
--- OUTSIDE RECORDS SUMMARY | 2020-01-18 13:38 | XMS REPORT | Clinical Summary ---
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 MINOXIDIL 2.5 MG ORAL TABLET 1 tablet twice daily for high b lood pressure MINOXIDIL 74798077986 Active Mitch Urbina DO Ac tive METFORMIN HCL ER 500 MG ORAL TABLET EXTENDED RELEASE 2 4 HOUR 2 tablets by mouth twice daily METFORMIN HCL 21178518998 Active Mitch Urbina DO Active GLIMEPIRIDE 4 MG ORAL TABLET 1 tablet by mouth twice daily f or diabetes GLIMEPIRIDE 45356404658 Active Mitch Urbina DO Active GLIMEPIRIDE 2 MG ORAL TABLET 1 po BID GLIMEPI RIDE 44829029042 No Longer Active Mitch Urbina DO Active AMLODIPINE BESYLATE 5 MG ORAL TABLET 1 tablet by mouth daily AMLODIPINE BESYLATE 32015473964 Active Mitch Urbina DO Active PROVIGIL 200 MG ORAL TABLET 1/2 tab po q day MODA FINIL 36827339183 Active Renee Oconnor LPN Active FAMOTIDINE 20 MG ORAL TABLET by mouth twice a day 2017 FAMOTIDINE 61419260727 No Longer Active Mitch Urbina DO Active COLCRYS 0.6 MG ORAL TABLET 1 tab qid prn gout C OLCHICINE 96499830631 No Longer Active Mitch Urbina DO Active KEFLEX 500 MG ORAL CAPSULE 1 po qid CEPHALEXI N 77597760932 No Longer Active Mitch Urbina DO Active LOSARTAN POTASSIUM 100 MG ORAL TABLET 1 pill by mouth daily, for blood pressure LOSARTAN POTASSIUM 02951057679 Active Mitch Arnol Carlitos VELASQUEZ Active AMLODIPINE BESYLATE 5 MG ORAL TABLET 1 tablet by mouth daily 201 01/20/04 AMLODIPINE BESYLATE 40686039028 No Longer Active Joe fulton APRN Active MITIGARE 0.6 MG ORAL CAPSULE 2 capsules at onset of go ut pain, then take one capsule at 1 hour if symptoms persist. COLCHICINE 59 676106473 Active Mitch Urbina DO Active COUMADIN 1 MG ORAL TABLET 2 tabs orally daily with the 5mg tab to equal 7mg daily WARFARIN SODIUM 49574674292 Active Renee Oconnor LPN Active INVOKANA 100 MG ORAL TABLET 1 tablet orally daily CANAGLIFLOZIN 42922554246 Active Mitch Urbina DO Active MECLIZINE HCL 25 MG ORAL TABLET 1 po tid 3 days, then 1/2 ta b tid 3 days MECLIZINE HCL 54941377562 No Longer Active Corey SEGURA Active ALLOPURINOL 300 MG ORAL TABLET Take 1 tablet by mouth daily 2012 ALLOPURINOL 85299652998 No Longer Active Corey SEGURA Active CLONIDINE HCL 0.1 MG ORAL TABLET 1 po bid 7 days, then 1/2 t ab po bid 7 days CLONIDINE HCL 87019699534 No Longer Active Corey SEGURA Active COUMADIN 5 MG ORAL TABLET 1 tab PO daily WARFAR IN SODIUM 86198597023 Active Renee Oconnor LPN Active COUMADIN 4 MG ORAL TABLET 1 tablet daily WARFAR IN SODIUM 91610983260 No Longer Active Corey SEGURA Active POLYTRIM 76581-3.1 UNIT/ML-% OPHTHALMIC SOLUTION 1 rui p in affected eye every 3 hours while awake x 7 days POLYMYXIN B-TRIMETHOP RIM 42957600343 No Longer Active Corey SEGURA Active LOSARTAN POTASSIUM-HCTZ 100-12.5 MG ORAL TABLET 1 by m outh daily for high blood pressure LOSARTAN POTASSIUM-HCTZ 60633294058 No Longer A ctive Mitch Urbina DO Active LISINOPRIL-HYDROCHLOROTHIAZIDE 20-12.5 MG ORAL TABLET 1 tab by m outh daily LISINOPRIL-HYDROCHLOROTHIAZIDE 19798769142 No Longer Active Mitch Urbina DO Active LISINOPRIL 20 MG ORAL TABLET 1 tab po at HS LIS INOPRIL 25047860711 No Longer Active Mitch Urbina DO Active COUMADIN 5 MG ORAL TABLET 1 by mouth every other day 2 WARFARIN SODIUM 13265086493 No Longer Active Mitch Urbina DO Active COUMADIN 6 MG ORAL TABLET 1 by mouth every other day 2 WARFARIN SODIUM 20817597324 No Longer Active Mitch Urbina DO Active SIMVASTATIN 40 MG ORAL TABLET 1 tab daily at bedtime SIMVASTATIN 31142273947 Active Maria Rivas RN Active SIMVASTATIN 20 MG ORAL TABLET 1 tab daily at bedtime 2 SIMVASTATIN 13723410981 No Longer Active Mitch Urbina DO Active LOVENOX 100 MG/ML SUBCUTANEOUS SOLUTION One injection twice a da y ENOXAPARIN SODIUM 83600241140 No Longer Active Carmine Yusuf MD Active JANUVIA 50 MG ORAL TABLET Take one by mouth daily SITAGLIPTIN PHOSPHATE 19743431674 Active Renee Oconnor LPN Active JANUVIA 100 MG ORAL TABLET 1/2 by mouth every day 2011 SITAGLIPTIN PHOSPHATE 94518333536 No Longer Active Bijal Segal RN Acti ve METFORMIN HCL 500 MG ORAL TABLET 2 by mouth twice daily METFORMIN HCL 60129339845 No Longer Active Renee Oconnor LPN Active COLCRYS 0.6 MG ORAL TABLET 1 po q 6 hours prn gout pain COLCHICINE 73137521010 No Longer Active Camila Reese Active LISINOPRIL 5 MG ORAL TABLET 1 by mouth every day 11/17 LISINOPRIL 35279891230 No Longer Active Nguyen Ana Active KLOR-CON 20 MEQ ORAL PACKET Take one by mouth daily 09/10/08 POTASSIUM CHLORIDE 08625604549 No Longer Active Nguyen Ana Active FUROSEMIDE 40 MG ORAL TABLET 1 by mouth daily F UROSEMIDE 33057838084 No Longer Active Nguyen Ana Active PROVIGIL 100 MG ORAL TABLET Take one by mouth daily 08/20/04 MODAFINIL 58298152817 No Longer Active Mitch Urbina DO Active BACTRIM DS 800-160 MG ORAL TABLET 1 tab by mouth twice daily 201 10/19/09 TRIMETHOPRIM-SULFAMETHOXAZOLE 69445194842 No Longer Active Elian Hays MD Active ADULT ASPIRIN LOW STRENGTH 81 MG ORAL TABLET DISINTEGR ATING 1 by mouth every daily ASPIRIN 79870519364 Active Mitch Urbina DO Ac tive METOPROLOL TARTRATE 50 MG ORAL TABLET 1 by mouth twice daily METOPROLOL TARTRATE 36158233763 Active Maria Rivas RN Ac tive BACTRIM DS 800-160 MG ORAL TABLET 1 tab by mouth twice daily 201 10/19/09 BACTRIM DS 800-160 MG ORAL TABLET 335109 TRIMETHOPRIM-SULFAMETHOXAZOLE Inactive PROVIGIL 100 MG ORAL TABLET Take one by mouth daily 08/20/04 PROVIGIL 100 MG ORAL TABLET 316288 MODAFINIL Inactive FUROSEMIDE 40 MG ORAL TABLET 1 by mouth daily FUROSEMIDE 40 MG ORAL TABLET 603955 FUROSEMIDE Inactive KLOR-CON 20 MEQ ORAL PACKET Take one by mouth daily 09/10/08 KLOR- CON 20 MEQ ORAL PACKET 6846265 POTASSIUM CHLORIDE Inactive LISINOPRIL 5 MG ORAL TABLET 1 by mouth every day 11/17 LISINOPRIL 5 MG ORAL TABLET 984765 LISINOPRIL Inactive COLCRYS 0.6 MG ORAL TABLET 1 po q 6 hours prn gout pain COLCRYS 0.6 MG ORAL TABLET 124367 COLCHICINE Inactive JANUVIA 100 MG ORAL TABLET 1/2 by mouth every day 2011 JANUVIA 100 MG ORAL TABLET SITAGLIPTIN PHOSPHATE Inactive SIMVASTATIN 20 MG ORAL TABLET 1 tab daily at bedtime 2 SIMVASTATIN 20 MG ORAL TABLET 073873 SIMVASTATIN Inactive COUMADIN 6 MG ORAL TABLET 1 by mouth every other day 2 COUMADIN 6 MG ORAL TABLET 601543 WARFARIN SODIUM Inactive COUMADIN 5 MG ORAL TABLET 1 by mouth every other day 2 COUMADIN 5 MG ORAL TABLET 974158 WARFARIN SODIUM Inactive LISINOPRIL 20 MG ORAL TABLET 1 tab po at HS LISINOPRIL 20 MG ORAL TABLET 437092 LISINOPRIL Inactive LISINOPRIL-HYDROCHLOROTHIAZIDE 20-12.5 MG ORAL TABLET 1 tab by m outh daily LISINOPRIL-HYDROCHLOROTHIAZIDE 20-12.5 MG ORAL TABLET 444320 LISINOPRIL-HYDROCHLOROTHIAZIDE Inactive POLYTRIM 20664-4.1 UNIT/ML-% OPHTHALMIC SOLUTION 1 rui p in affected eye every 3 hours while awake x 7 days POLYTRIM 1000 0-0.1 UNIT/ML-% OPHTHALMIC SOLUTION 681129 POLYMYXIN B-TRIMETHOPRIM Inactive COUMADIN 4 MG ORAL TABLET 1 tablet daily COUMADIN 4 MG ORAL TABLET 649235 WARFARIN SODIUM Inactive CLONIDINE HCL 0.1 MG ORAL TABLET 1 po bid 7 days, then 1/2 t ab po bid 7 days CLONIDINE HCL 0.1 MG ORAL TABLET 481889 CLONIDIN E HCL Inactive ALLOPURINOL 300 MG ORAL TABLET Take 1 tablet by mouth daily 2012 ALLOPURINOL 300 MG ORAL TABLET 213864 ALLOPURINOL I nactive MECLIZINE HCL 25 MG ORAL TABLET 1 po tid 3 days, then 1/2 ta b tid 3 days MECLIZINE HCL 25 MG ORAL TABLET 549161 MECLIZINE HCL Inactive AMLODIPINE BESYLATE 5 MG ORAL TABLET 1 tablet by mouth daily 201 01/20/04 AMLODIPINE BESYLATE 5 MG ORAL TABLET 700971 AMLODIPINE BESYLATE Inactive KEFLEX 500 MG ORAL CAPSULE 1 po qid K EFLEX 500 MG ORAL CAPSULE 282871 CEPHALEXIN Inactive COLCRYS 0.6 MG ORAL TABLET 1 tab qid prn gout COLCRYS 0.6 MG ORAL TABLET 181671 COLCHICINE Inactive FAMOTIDINE 20 MG ORAL TABLET by mouth twice a day 2017 FAMOTIDINE 20 MG ORAL TABLET 968421 FAMOTIDINE Inactive GLIMEPIRIDE 2 MG ORAL TABLET 1 po BID GLIMEPIRIDE 2 MG ORAL TABLET 846160 GLIMEPIRIDE Inactive LOVENOX 100 MG/ML SUBCUTANEOUS SOLUTION One injection twice a da y LOVENOX 100 MG/ML SUBCUTANEOUS SOLUTION 663315 ENOXAPAR IN SODIUM Inactive PREDNISONE 20 MG ORAL TABLET 2 tabs daily for 3 days 1 tab d aily for 3 days PREDNISONE 20 MG ORAL TABLET 895262 PREDNISONE Inactive Advance Directives Directive Description Start [...] mg/dL Encounters Code Encounter Date Provider Facility CPT-30600 Level 3 Est. Patient 15:18:36 CDT Becky anderson [facility] [place] [facility] [place] CPT-20503 [id number] Vst-Est Level IV 10:06:35 CDT Stephy [facility] CPT-89013 [id number] Vst-Est Level IV 10:52:00 NURSE EMERGENCY ROOM Stephy [facility] CPT-94784 Level 3 Est. Patient 18:25:53 CDT Mitch luis [facility] CPT-27102 Level 3 Est. Patient 19:43:34 CDT Mitch luis [facility] CPT-07264 Level 4 Est. Patient 09:30:18 CDT Mitch luis [facility] CPT-36548 Level 3 Est. Patient 15:10:14 CDT Joe kamara [facility] [place] [facility] [place] CPT-17170 Level 3 Est. Patient 15:03:46 CDT Joe kamara [facility] [place] [facility] [place] CPT-96364 Level 3 Est. Patient 14:21:06 CDT Mitch luis [facility] CPT-87510 Level 3 Est. Patient 14:52:06 CDT Joe kamara [facility] [place] [facility] [place] CPT-13006 Level 3 Est. Patient 09:34:30 NURSE EMERGENCY ROOM Mitch luis [facility] CPT-40277 Level 3 Est. Patient 09:37:15 CDT Mitch luis [facility] CPT-33007 Level 3 Est. Patient 17:01:00 NURSE EMERGENCY ROOM Mitch luis [facility] CPT-15887 Level 3 Est. Patient 13:53:19 NURSE EMERGENCY ROOM Mitch luis [facility] CPT-02281 Level 3 Est. Patient 19:19:37 NURSE EMERGENCY ROOM Mitch luis [facility] CPT-17735 Level 3 Est. Patient 13:25:53 NURSE EMERGENCY ROOM Tavo toure MD [facility] CPT-54233 Level 3 Est. Patient 18:17:28 CDT Mitch luis [facility] CPT-51812 Level 3 Est. Patient 15:22:57 CDT Mitch luis [facility] CPT-54406 Level 3 Est. Patient 18:21:50 CDT Mitch luis [facility] CPT-25171 Level 3 Est. Patient 18:20:38 CDT Mitch luis [facility] CPT-05430 Level 3 Est. Patient 15:37:55 CDT Mitch luis [facility] CPT-86990 Level 2 Est. Patient 15:54:44 CDT Carmine benton MD [facility]-45304 Level 3 Est. Patient 21:46:01 NURSE EMERGENCY ROOM Mitch luis [facility] CPT-96248 Level 3 Est. Patient 22:15:50 CDT Mitch luis [facility] CPT-38866 Level 3 Est. Patient 10:48:15 CDT Mitch luis [facility] CPT-69927 Level 3 Est. Patient 23:20:57 CDT Tavo toure MD [facility] CPT-14359 Level 3 Est. Patient 16:26:13 CDT Mitch luis [facility] Procedures Code Procedure Name Date Entry Date Standard Desc ription CPT-64064 Venipuncture Draw Fee 17:20:50 CDT CPT-74493 Venipuncture Draw Fee 18:00:48 CDT CPT-41793 Venipuncture Draw Fee 14:56:20 CDT CPT-JTINJ Asp/Joint Injection 18:47:02 CDT CPT-86589 Venipuncture Draw Fee 09:26:17 CDT CPT-57955 PT/INR - LAB USE ONLY 13:32:49 NURSE EMERGENCY ROOM CPT-55601 Venipuncture Draw Fee 13:32:49 NURSE EMERGENCY ROOM CPT-86671 PT/INR - LAB USE ONLY 10:34:49 NURSE EMERGENCY ROOM CPT-93067 Venipuncture Draw Fee 10:34:48 NURSE EMERGENCY ROOM CPT-38216 PT/INR - LAB USE ONLY 09:22:03 NURSE EMERGENCY ROOM CPT-48053 Venipuncture Draw Fee 09:22:02 NURSE EMERGENCY ROOM CPT-98762 Hemoccult IFOBT - LAB USE ONLY 10:27:22 CDT CPT-78126 Venipuncture Draw Fee 08:27:08 CDT CPT-67609 Liver Profile - LAB USE ONLY 08:27:07 CDT 2 CPT-31063 Microalbumin - LAB USE ONLY 08:27:07 CDT 20 25/05/09 CPT-08832 PT/INR - LAB USE ONLY 08:27:07 CDT CPT-85818 HGBA1C - LAB USE ONLY 08:27:07 CDT CPT-45152 CBC - LAB USE ONLY 08:27:07 CDT CPT-13383 Venipuncture Draw Fee 11:09:14 CDT CPT-68500 Venipuncture Draw Fee 08:32:21 NURSE EMERGENCY ROOM CPT-64786 Venipuncture Draw Fee 09:38:56 NURSE EMERGENCY ROOM CPT-59864 No Charge Offi Visit 21:36:07 CDT 1 CPT-42523 Venipuncture Draw Fee 10:13:28 NURSE EMERGENCY ROOM CPT-61344 Venipuncture Draw Fee 08:31:11 CDT CPT-99389 Aspir/Inject Med Joint 18:17:28 CDT CPT-22256 Venipuncture Draw Fee 10:13:30 CDT CPT-06601 Venipuncture Draw Fee 08:31:43 NURSE EMERGENCY ROOM CPT-JTINJ Joint Injection 18:34:50 CDT CPT-97273 Knee 3V 12:25:09 CDT CPT-93071 Venipuncture Draw Fee 12:15:57 CDT CPT-060 Medical Surveillance Exam 21:31:43 CDT 2011 CPT-55537 Venipuncture Draw Fee 08:32:05 NURSE EMERGENCY ROOM CPT-OV Office Visit 18:19:06 CDT
--- OUTSIDE RECORDS SUMMARY | 2020-01-18 13:38 | XMS REPORT | Clinical Summary ---
Author Author Admin, Mitch Leon Organization [facility] [employer] Address Unknown Phone Unavailable Allergies, Adverse Reactions, [...] Coronary atherosclerosis of unspecified type of vessel, pechanga or graft EDEMA 782.3 Resolved Mitch Urbina [...] mouth twice daily f or diabetes GLIMEPIRIDE 61074891337 Active Mitch Urbina DO Active GLIMEPIRIDE 2 MG ORAL TABLET 1 po BID GLIMEPI RIDE 86038480704 No Longer Active Mitch Urbina DO Active AMLODIPINE BESYLATE 5 MG ORAL TABLET 1 tablet by mouth daily AMLODIPINE BESYLATE 20129541026 Active Mitch Urbina DO Active PROVIGIL 200 MG ORAL TABLET 1/2 tab po q day MODA FINIL 46493991672 Active Renee Oconnor LPN Active FAMOTIDINE 20 MG ORAL TABLET by mouth twice a day 2017 FAMOTIDINE 53077399955 No Longer Active Mitch Urbina DO Active COLCRYS 0.6 MG ORAL TABLET 1 tab qid prn gout C OLCHICINE 30237790827 No Longer Active Mitch Urbina DO Active KEFLEX 500 MG ORAL CAPSULE 1 po qid CEPHALEXI N 97213736397 No Longer Active Mitch Urbina DO Active LOSARTAN POTASSIUM 100 MG ORAL TABLET 1 pill by mouth daily, for blood pressure LOSARTAN POTASSIUM 82940646358 Active Renee Oconnor LPN Active AMLODIPINE BESYLATE 5 MG ORAL TABLET 1 tablet by mouth daily 201 01/20/04 AMLODIPINE BESYLATE 67484130804 No Longer Active Joe fulton MILL RECORDER Active MITIGARE 0.6 MG ORAL CAPSULE 2 capsules at onset of go ut pain, then take one capsule at 1 hour if symptoms persist. COLCHICINE 59 227231036 Active Mitch Urbina DO Active COUMADIN 1 MG ORAL TABLET 2 tabs orally daily with the 5mg tab to equal 7mg daily WARFARIN SODIUM 73134883936 Active Mitch Urbina DO Active INVOKANA 100 MG ORAL TABLET 1 tablet orally daily CANAGLIFLOZIN 72256274518 Active Curly Coker MD Active MINOXIDIL 2.5 MG ORAL TABLET 1 tablet daily for high blood press ure MINOXIDIL 16547005903 Active Renee Oconnor LPN Active MECLIZINE HCL 25 MG ORAL TABLET 1 po tid 3 days, then 1/2 ta b tid 3 days MECLIZINE HCL 50571909977 No Longer Active Corey SEGURA Active ALLOPURINOL 300 MG ORAL TABLET Take 1 tablet by mouth daily 2012 ALLOPURINOL 43977011054 No Longer Active Corey SEGURA Active CLONIDINE HCL 0.1 MG ORAL TABLET 1 po bid 7 days, then 1/2 t ab po bid 7 days CLONIDINE HCL 25456113140 No Longer Active Corey SEGURA Active COUMADIN 5 MG ORAL TABLET 1 tab PO daily WARFAR IN SODIUM 50763770479 Active Mitch Urbina DO Active COUMADIN 4 MG ORAL TABLET 1 tablet daily WARFAR IN SODIUM 56669322200 No Longer Active Corey SEGURA Active POLYTRIM 58701-7.1 UNIT/ML-% OPHTHALMIC SOLUTION 1 rui p in affected eye every 3 hours while awake x 7 days POLYMYXIN B-TRIMETHOP RIM 77842852484 No Longer Active Corey SEGURA Active LOSARTAN POTASSIUM-HCTZ 100-12.5 MG ORAL TABLET 1 by m outh daily for high blood pressure LOSARTAN POTASSIUM-HCTZ 08079982155 No Longer A ctive Mitch Urbina DO Active LISINOPRIL-HYDROCHLOROTHIAZIDE 20-12.5 MG ORAL TABLET 1 tab by m outh daily LISINOPRIL-HYDROCHLOROTHIAZIDE 81056773963 No Longer Active Mitch Urbina DO Active LISINOPRIL 20 MG ORAL TABLET 1 tab po at HS LIS INOPRIL 50317760700 No Longer Active Mitch Urbina DO Active COUMADIN 5 MG ORAL TABLET 1 by mouth every other day 2 WARFARIN SODIUM 35227238812 No Longer Active Mitch Urbina DO Active COUMADIN 6 MG ORAL TABLET 1 by mouth every other day 2 WARFARIN SODIUM 82239640254 No Longer Active Mitch Urbina DO Active SIMVASTATIN 40 MG ORAL TABLET 1 tab daily at bedtime SIMVASTATIN 24447477790 Active Renee Oconnor LPN Active SIMVASTATIN 20 MG ORAL TABLET 1 tab daily at bedtime 2 SIMVASTATIN 87499191999 No Longer Active Mitch Urbina DO Active LOVENOX 100 MG/ML SUBCUTANEOUS SOLUTION One injection twice a da y ENOXAPARIN SODIUM 64208159139 No Longer Active Carmine Yusuf MD Active JANUVIA 50 MG ORAL TABLET Take one by mouth daily SITAGLIPTIN PHOSPHATE 27344657639 Active Mitch Urbina DO Active JANUVIA 100 MG ORAL TABLET 1/2 by mouth every day 2011 SITAGLIPTIN PHOSPHATE 38310299568 No Longer Active Bijal Segal RN Acti ve METFORMIN HCL 500 MG ORAL TABLET 2 by mouth twice daily METFORMIN HCL 54264857756 No Longer Active Renee Oconnor LPN Active COLCRYS 0.6 MG ORAL TABLET 1 po q 6 hours prn gout pain COLCHICINE 32311178764 No Longer Active Camila Reese Active LISINOPRIL 5 MG ORAL TABLET 1 by mouth every day 11/17 LISINOPRIL 95865187712 No Longer Active Nguyen Perez Active KLOR-CON 20 MEQ ORAL PACKET Take one by mouth daily 20 09/10/08 POTASSIUM CHLORIDE 93586808097 No Longer Active Nguyen Perez Active FUROSEMIDE 40 MG ORAL TABLET 1 by mouth daily F UROSEMIDE 87551822939 No Longer Active Nguyen Perez Active PROVIGIL 100 MG ORAL TABLET Take one by mouth daily 08/20/04 MODAFINIL 84743097923 No Longer Active Mitch Urbina DO Active BACTRIM DS 800-160 MG ORAL TABLET 1 tab by mouth twice daily 201 10/19/09 TRIMETHOPRIM-SULFAMETHOXAZOLE 98161267307 No Longer Active Elian Hays MD Active ADULT ASPIRIN LOW STRENGTH 81 MG ORAL TABLET DISINTEGR ATING 1 by mouth every daily ASPIRIN 75890734417 Active Mitch Urbina DO Ac tive METOPROLOL TARTRATE 50 MG ORAL TABLET 1 by mouth twice daily METOPROLOL TARTRATE 17046962135 Active Mitch Urbina DO Active BACTRIM DS 800-160 MG ORAL TABLET 1 tab by mouth twice daily 201 10/19/09 BACTRIM DS 800-160 MG ORAL TABLET 119031 TRIMETHOPRIM-SULFAMETHOXAZOLE Inactive PROVIGIL 100 MG ORAL TABLET Take one by mouth daily 08/20/04 PROVIGIL 100 MG ORAL TABLET 155109 MODAFINIL Inactive FUROSEMIDE 40 MG ORAL TABLET 1 by mouth daily FUROSEMIDE 40 MG ORAL TABLET 051145 FUROSEMIDE Inactive KLOR-CON 20 MEQ ORAL PACKET Take one by mouth daily 09/10/08 KLOR- CON 20 MEQ ORAL PACKET 4775146 POTASSIUM CHLORIDE Inactive LISINOPRIL 5 MG ORAL TABLET 1 by mouth every day 11/17 LISINOPRIL 5 MG ORAL TABLET 311896 LISINOPRIL Inactive COLCRYS 0.6 MG ORAL TABLET 1 po q 6 hours prn gout pain COLCRYS 0.6 MG ORAL TABLET 135147 COLCHICINE Inactive JANUVIA 100 MG ORAL TABLET 1/2 by mouth every day 2011 JANUVIA 100 MG ORAL TABLET SITAGLIPTIN PHOSPHATE Inactive SIMVASTATIN 20 MG ORAL TABLET 1 tab daily at bedtime 2 SIMVASTATIN 20 MG ORAL TABLET 334560 SIMVASTATIN Inactive COUMADIN 6 MG ORAL TABLET 1 by mouth every other day 2 COUMADIN 6 MG ORAL TABLET 071324 WARFARIN SODIUM Inactive COUMADIN 5 MG ORAL TABLET 1 by mouth every other day 2 COUMADIN 5 MG ORAL TABLET 751519 WARFARIN SODIUM Inactive LISINOPRIL 20 MG ORAL TABLET 1 tab po at HS LISINOPRIL 20 MG ORAL TABLET 670187 LISINOPRIL Inactive LISINOPRIL-HYDROCHLOROTHIAZIDE 20-12.5 MG ORAL TABLET 1 tab by m outh daily LISINOPRIL-HYDROCHLOROTHIAZIDE 20-12.5 MG ORAL TABLET 587383 LISINOPRIL-HYDROCHLOROTHIAZIDE Inactive POLYTRIM 80183-0.1 UNIT/ML-% OPHTHALMIC SOLUTION 1 rui p in affected eye every 3 hours while awake x 7 days POLYTRIM 1000 0-0.1 UNIT/ML-% OPHTHALMIC SOLUTION 491955 POLYMYXIN B-TRIMETHOPRIM Inactive COUMADIN 4 MG ORAL TABLET 1 tablet daily COUMADIN 4 MG ORAL TABLET 084607 WARFARIN SODIUM Inactive CLONIDINE HCL 0.1 MG ORAL TABLET 1 po bid 7 days, then 1/2 t ab po bid 7 days CLONIDINE HCL 0.1 MG ORAL TABLET 201551 CLONIDIN E HCL Inactive ALLOPURINOL 300 MG ORAL TABLET Take 1 tablet by mouth daily 2012 ALLOPURINOL 300 MG ORAL TABLET 680440 ALLOPURINOL I nactive MECLIZINE HCL 25 MG ORAL TABLET 1 po tid 3 days, then 1/2 ta b tid 3 days MECLIZINE HCL 25 MG ORAL TABLET 651839 MECLIZINE HCL Inactive AMLODIPINE BESYLATE 5 MG ORAL TABLET 1 tablet by mouth daily 201 01/20/04 AMLODIPINE BESYLATE 5 MG ORAL TABLET 241534 AMLODIPINE BESYLATE Inactive KEFLEX 500 MG ORAL CAPSULE 1 po qid K EFLEX 500 MG ORAL CAPSULE 549624 CEPHALEXIN Inactive COLCRYS 0.6 MG ORAL TABLET 1 tab qid prn gout COLCRYS 0.6 MG ORAL TABLET 497889 COLCHICINE Inactive FAMOTIDINE 20 MG ORAL TABLET by mouth twice a day 2017 FAMOTIDINE 20 MG ORAL TABLET 086523 FAMOTIDINE Inactive GLIMEPIRIDE 2 MG ORAL TABLET 1 po BID GLIMEPIRIDE 2 MG ORAL TABLET 674583 GLIMEPIRIDE Inactive LOVENOX 100 MG/ML SUBCUTANEOUS SOLUTION One injection twice a da y LOVENOX 100 MG/ML SUBCUTANEOUS SOLUTION 272445 ENOXAPAR IN SODIUM Inactive Vital Signs Date [...] 130-200 Encounters Code Encounter Date Provider Facility CPT-65734 Level 3 Est. Patient 18:25:53 CDT Mitch luis [facility] CPT-55371 Level 3 Est. Patient 19:43:34 CDT Mitch luis [facility] CPT-79942 Level 4 Est. Patient 09:30:18 CDT Mitch luis [facility] CPT-68049 Level 3 Est. Patient 15:10:14 CDT Joe kamara [facility] [place] CPT-32616 Level 3 Est. Patient 15:03:46 CDT Joe kamara [facility] [place] CPT-24307 Level 3 Est. Patient 14:21:06 CDT Mitch luis [facility] CPT-50529 Level 3 Est. Patient 14:52:06 CDT Joe kamara [facility] [place] CPT-41143 Level 3 Est. Patient 09:34:30 [employer]ODUCTION PATTERN [employer] Mitch luis [facility] CPT-07317 Level 3 Est. Patient 09:37:15 CDT Mitch luis [facility] CPT-99876 Level 3 Est. Patient 17:01:00 [employer]ODUCTION PATTERN [employer] Mitch luis [facility] CPT-83628 Level 3 Est. Patient 13:53:19 PRODUCTION PATTERN [employer]KER Mitch luis [facility] CPT-48048 Level 3 Est. Patient 19:19:37 PRODUCTION PATTERN [employer]KER Mitch luis [facility] CPT-67426 Level 3 Est. Patient 13:25:53 PRODUCTION PATTERN MAKER Tavo toure MD [facility] CPT-16440 Level 3 Est. Patient 18:17:28 CDT Mitch luis [facility] CPT-57719 Level 3 Est. Patient 15:22:57 CDT Mitch luis [facility] CPT-01286 Level 3 Est. Patient 18:21:50 CDT Mitch luis [facility] CPT-27524 Level 3 Est. Patient 18:20:38 CDT Mitch Arnol luis [facility] CPT-15528 Level 3 Est. Patient 15:37:55 CDT Mitch Arnol luis [facility] CPT-14706 Level 2 Est. Patient 15:54:44 CDT Carmine benton MD [facility] CPT-93589 Level 3 Est. Patient 21:46:01 PRODUCTION PATTERN [employer] Mitch luis [facility] CPT-43615 Level 3 Est. Patient 22:15:50 CDT Mitch luis [facility] CPT-48560 Level 3 Est. Patient 10:48:15 CDT Mitch luis [facility] CPT-78911 Level 3 Est. Patient 23:20:57 CDT Tavo toure MD [facility] CPT-76379 Level 3 Est. Patient 16:26:13 CDT Mitch Castellano janelle [facility] Procedures Code Procedure Name Date Entry Date Standard Desc ription CPT-JTINJ Asp/Joint Injection 18:47:02 CDT CPT-76652 Venipuncture Draw Fee 09:26:17 CDT CPT-73066 PT/INR - LAB USE ONLY 13:32:49 [employer]ODUCTION PATTERN [employer] CPT-73713 Venipuncture Draw Fee 13:32:49 PRODUCTION PATTERN [employer] CPT-70325 PT/INR - LAB USE ONLY 10:34:49 PRODUCTION PATTERN [employer] CPT-33323 Venipuncture Draw Fee 10:34:48 PRODUCTION PATTERN [employer] CPT-44145 PT/INR - LAB USE ONLY 09:22:03 PRODUCTION PATTERN [employer] CPT-64367 Venipuncture Draw Fee 09:22:02 PRODUCTION PATTERN [employer] CPT-22273 Hemoccult IFOBT - LAB USE ONLY 10:27:22 CDT CPT-24474 Venipuncture Draw Fee 08:27:08 CDT CPT-16902 Liver Profile - LAB USE ONLY 08:27:07 CDT 2 CPT-66400 Microalbumin - LAB USE ONLY 08:27:07 CDT 20 25/05/09 CPT-48357 PT/INR - LAB USE ONLY 08:27:07 CDT CPT-79920 HGBA1C - LAB USE ONLY 08:27:07 CDT CPT-96597 CBC - LAB USE ONLY 08:27:07 CDT CPT-09428 Venipuncture Draw Fee 11:09:14 CDT CPT-14899 Venipuncture Draw Fee 08:32:21 [employer]ODUCTION [employer]TERN [employer] CPT-34419 Venipuncture Draw Fee 09:38:56 [employer]ODUCTION PATTERN [employer] CPT-52566 No Charge Offi Visit 21:36:07 CDT 1 CPT-58506 Venipuncture Draw Fee 10:13:28 [employer]ODUCTION PATTERN [employer] CPT-48895 Venipuncture Draw Fee 08:31:11 CDT CPT-19463 Aspir/Inject Med Joint 18:17:28 CDT CPT-35905 Venipuncture Draw Fee 10:13:30 CDT CPT-46589 Venipuncture Draw Fee 08:31:43 [employer]ODUCTION PATTERN [employer] CPT-JTINJ Joint Injection 18:34:50 CDT CPT-43375 Knee 3V 12:25:09 CDT CPT-67307 Venipuncture Draw Fee 12:15:57 CDT CPT-060 Medical Surveillance Exam 21:31:43 CDT 2011 CPT-93638 Venipuncture Draw Fee 08:32:05 [employer]ODUCTION PATTERN [employer] CPT-OV Office Visit 18:19:06 CDT
--- OUTSIDE RECORDS SUMMARY | 2020-01-18 13:38 | XMS REPORT | Clinical Summary ---
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 Mitch Arnol Carlitos DO Osteoarthrosis, unsp ecified whether generalized or localized, involving lower leg DIZZINESS 780.4 Resolved Mitch Arnol Carlitos DO Dizziness and giddiness CAROTID BRUIT, LEFT 785.9 Active Mitch W Cralitos DO Other symptoms involving cardiovascular system GOUT, [...] for 1 week, then once daily FLUTICASONE TX OPIONATE 99845658382 Active Becky Sell COMPLAINT INSPECTOR Active PREDNISONE 20 MG ORAL TABLET 2 tabs daily for 3 days 1 tab d aily for 3 days PREDNISONE 48239019267 No Longer Active Becky Sell COMPLAINT INSPECTOR Active MINOXIDIL 2.5 MG ORAL TABLET 1 tablet twice daily for high b lood pressure MINOXIDIL 73554610576 Active Mitch Urbina DO Ac tive METFORMIN HCL ER 500 MG ORAL TABLET EXTENDED RELEASE 2 4 HOUR 2 tablets by mouth twice daily METFORMIN HCL 85239497461 Active Mitch Urbina DO Active GLIMEPIRIDE 4 MG ORAL TABLET 1 tablet by mouth twice daily f or diabetes GLIMEPIRIDE 85419367343 Active Mitch Urbina DO Active GLIMEPIRIDE 2 MG ORAL TABLET 1 po BID GLIMEPI RIDE 69090777337 No Longer Active Mitch Urbina DO Active AMLODIPINE BESYLATE 5 MG ORAL TABLET 1 tablet by mouth daily AMLODIPINE BESYLATE 74899273599 Active Mitch Urbina DO Active PROVIGIL 200 MG ORAL TABLET 1/2 tab po q day MODA FINIL 31492409484 Active Renee Oconnor LPN Active FAMOTIDINE 20 MG ORAL TABLET by mouth twice a day 2017 FAMOTIDINE 35025608113 No Longer Active Mitch Urbina DO Active COLCRYS 0.6 MG ORAL TABLET 1 tab qid prn gout C OLCHICINE 20057710334 No Longer Active Mitch Urbina DO Active KEFLEX 500 MG ORAL CAPSULE 1 po qid CEPHALEXI N 40064240972 No Longer Active Mitch Urbina DO Active LOSARTAN POTASSIUM 100 MG ORAL TABLET 1 pill by mouth daily, for blood pressure LOSARTAN POTASSIUM 41659564772 Active Mitch Urbina DO Active AMLODIPINE BESYLATE 5 MG ORAL TABLET 1 tablet by mouth daily 201 01/20/04 AMLODIPINE BESYLATE 06926155244 No Longer Active Joe fulton APRN Active MITIGARE 0.6 MG ORAL CAPSULE 2 capsules at onset of go ut pain, then take one capsule at 1 hour if symptoms persist. COLCHICINE 59 620094892 Active Mitch Urbina DO Active COUMADIN 1 MG ORAL TABLET 2 tabs orally daily with the 5mg tab to equal 7mg daily WARFARIN SODIUM 80914398540 Active Renee Oconnor LPN Active INVOKANA 100 MG ORAL TABLET 1 tablet orally daily CANAGLIFLOZIN 46882059065 Active Mitch Urbina DO Active MECLIZINE HCL 25 MG ORAL TABLET 1 po tid 3 days, then 1/2 ta b tid 3 days MECLIZINE HCL 63205162641 No Longer Active Corey SEGURA Active ALLOPURINOL 300 MG ORAL TABLET Take 1 tablet by mouth daily 2012 ALLOPURINOL 04175835799 No Longer Active Corey SEGURA Active CLONIDINE HCL 0.1 MG ORAL TABLET 1 po bid 7 days, then 1/2 t ab po bid 7 days CLONIDINE HCL 06659794598 No Longer Active Corey SEGURA Active COUMADIN 5 MG ORAL TABLET 1 tab PO daily WARFAR IN SODIUM 74778877593 Active Renee Oconnor LPN Active COUMADIN 4 MG ORAL TABLET 1 tablet daily WARFAR IN SODIUM 04536559162 No Longer Active Corey SEGURA Active POLYTRIM 47689-6.1 UNIT/ML-% OPHTHALMIC SOLUTION 1 rui p in affected eye every 3 hours while awake x 7 days POLYMYXIN B-TRIMETHOP RIM 33414806016 No Longer Active Corey SEGURA Active LOSARTAN POTASSIUM-HCTZ 100-12.5 MG ORAL TABLET 1 by m outh daily for high blood pressure LOSARTAN POTASSIUM-HCTZ 56532001928 No Longer A ctive Mitch Urbina DO Active LISINOPRIL-HYDROCHLOROTHIAZIDE 20-12.5 MG ORAL TABLET 1 tab by m outh daily LISINOPRIL-HYDROCHLOROTHIAZIDE 98368453578 No Longer Active Mitch Urbina DO Active LISINOPRIL 20 MG ORAL TABLET 1 tab po at HS LIS INOPRIL 71613972654 No Longer Active Mitch Urbina DO Active COUMADIN 5 MG ORAL TABLET 1 by mouth every other day 2 WARFARIN SODIUM 66558544246 No Longer Active Mitch Urbina DO Active COUMADIN 6 MG ORAL TABLET 1 by mouth every other day 2 WARFARIN SODIUM 17959643171 No Longer Active Mitch Urbina DO Active SIMVASTATIN 40 MG ORAL TABLET 1 tab daily at bedtime SIMVASTATIN 13913011487 Active Maria Rivas RN Active SIMVASTATIN 20 MG ORAL TABLET 1 tab daily at bedtime 2 SIMVASTATIN 33006090727 No Longer Active Mitch Urbina DO Active LOVENOX 100 MG/ML SUBCUTANEOUS SOLUTION One injection twice a da y ENOXAPARIN SODIUM 72250784377 No Longer Active Carmine Yusuf MD Active JANUVIA 50 MG ORAL TABLET Take one by mouth daily SITAGLIPTIN PHOSPHATE 20031642710 Active Renee Oconnor LPN Active JANUVIA 100 MG ORAL TABLET 1/2 by mouth every day 2011 SITAGLIPTIN PHOSPHATE 97488355384 No Longer Active Bijal Segal RN Acti ve METFORMIN HCL 500 MG ORAL TABLET 2 by mouth twice daily METFORMIN HCL 56845969331 No Longer Active Renee Oconnor LPN Active COLCRYS 0.6 MG ORAL TABLET 1 po q 6 hours prn gout pain COLCHICINE 34061082996 No Longer Active Camila Reese Active LISINOPRIL 5 MG ORAL TABLET 1 by mouth every day 11/17 LISINOPRIL 96030551691 No Longer Active Nguyen Ana Active KLOR-CON 20 MEQ ORAL PACKET Take one by mouth daily 09/10/08 POTASSIUM CHLORIDE 57749614942 No Longer Active Nguyen Ana Active FUROSEMIDE 40 MG ORAL TABLET 1 by mouth daily F UROSEMIDE 99516549840 No Longer Active Nguyen Ana Active PROVIGIL 100 MG ORAL TABLET Take one by mouth daily 08/20/04 MODAFINIL 93169404313 No Longer Active Mitch Urbina DO Active BACTRIM DS 800-160 MG ORAL TABLET 1 tab by mouth twice daily 201 10/19/09 TRIMETHOPRIM-SULFAMETHOXAZOLE 62963698774 No Longer Active Elian Hays MD Active ADULT ASPIRIN LOW STRENGTH 81 MG ORAL TABLET DISINTEGR ATING 1 by mouth every daily ASPIRIN 81660081786 Active Mitch Urbina DO Ac tive METOPROLOL TARTRATE 50 MG ORAL TABLET 1 by mouth twice daily METOPROLOL TARTRATE 13982621758 Active Maria Rivas RN Ac tive BACTRIM DS 800-160 MG ORAL TABLET 1 tab by mouth twice daily 201 10/19/09 BACTRIM DS 800-160 MG ORAL TABLET 601970 TRIMETHOPRIM-SULFAMETHOXAZOLE Inactive PROVIGIL 100 MG ORAL TABLET Take one by mouth daily 08/20/04 PROVIGIL 100 MG ORAL TABLET 153060 MODAFINIL Inactive FUROSEMIDE 40 MG ORAL TABLET 1 by mouth daily FUROSEMIDE 40 MG ORAL TABLET 811242 FUROSEMIDE Inactive KLOR-CON 20 MEQ ORAL PACKET Take one by mouth daily 09/10/08 KLOR- CON 20 MEQ ORAL PACKET 7013811 POTASSIUM CHLORIDE Inactive LISINOPRIL 5 MG ORAL TABLET 1 by mouth every day 11/17 LISINOPRIL 5 MG ORAL TABLET 989820 LISINOPRIL Inactive COLCRYS 0.6 MG ORAL TABLET 1 po q 6 hours prn gout pain COLCRYS 0.6 MG ORAL TABLET 569571 COLCHICINE Inactive JANUVIA 100 MG ORAL TABLET 1/2 by mouth every day 2011 JANUVIA 100 MG ORAL TABLET SITAGLIPTIN PHOSPHATE Inactive SIMVASTATIN 20 MG ORAL TABLET 1 tab daily at bedtime 2 SIMVASTATIN 20 MG ORAL TABLET 625730 SIMVASTATIN Inactive COUMADIN 6 MG ORAL TABLET 1 by mouth every other day 2 COUMADIN 6 MG ORAL TABLET 369485 WARFARIN SODIUM Inactive COUMADIN 5 MG ORAL TABLET 1 by mouth every other day 2 COUMADIN 5 MG ORAL TABLET 050210 WARFARIN SODIUM Inactive LISINOPRIL 20 MG ORAL TABLET 1 tab po at HS LISINOPRIL 20 MG ORAL TABLET 519143 LISINOPRIL Inactive LISINOPRIL-HYDROCHLOROTHIAZIDE 20-12.5 MG ORAL TABLET 1 tab by m outh daily LISINOPRIL-HYDROCHLOROTHIAZIDE 20-12.5 MG ORAL TABLET 050324 LISINOPRIL-HYDROCHLOROTHIAZIDE Inactive POLYTRIM 08114-8.1 UNIT/ML-% OPHTHALMIC SOLUTION 1 rui p in affected eye every 3 hours while awake x 7 days POLYTRIM 1000 0-0.1 UNIT/ML-% OPHTHALMIC SOLUTION 034096 POLYMYXIN B-TRIMETHOPRIM Inactive COUMADIN 4 MG ORAL TABLET 1 tablet daily COUMADIN 4 MG ORAL TABLET 435214 WARFARIN SODIUM Inactive CLONIDINE HCL 0.1 MG ORAL TABLET 1 po bid 7 days, then 1/2 t ab po bid 7 days CLONIDINE HCL 0.1 MG ORAL TABLET 994888 CLONIDIN E HCL Inactive ALLOPURINOL 300 MG ORAL TABLET Take 1 tablet by mouth daily 2012 ALLOPURINOL 300 MG ORAL TABLET 467644 ALLOPURINOL I nactive MECLIZINE HCL 25 MG ORAL TABLET 1 po tid 3 days, then 1/2 ta b tid 3 days MECLIZINE HCL 25 MG ORAL TABLET 186026 MECLIZINE HCL Inactive AMLODIPINE BESYLATE 5 MG ORAL TABLET 1 tablet by mouth daily 201 01/20/04 AMLODIPINE BESYLATE 5 MG ORAL TABLET 120864 AMLODIPINE BESYLATE Inactive KEFLEX 500 MG ORAL CAPSULE 1 po qid K EFLEX 500 MG ORAL CAPSULE 429863 CEPHALEXIN Inactive COLCRYS 0.6 MG ORAL TABLET 1 tab qid prn gout COLCRYS 0.6 MG ORAL TABLET 166785 COLCHICINE Inactive FAMOTIDINE 20 MG ORAL TABLET by mouth twice a day 2017 FAMOTIDINE 20 MG ORAL TABLET 315185 FAMOTIDINE Inactive GLIMEPIRIDE 2 MG ORAL TABLET 1 po BID GLIMEPIRIDE 2 MG ORAL TABLET 311273 GLIMEPIRIDE Inactive LOVENOX 100 MG/ML SUBCUTANEOUS SOLUTION One injection twice a da y LOVENOX 100 MG/ML SUBCUTANEOUS SOLUTION 429216 ENOXAPAR IN SODIUM Inactive PREDNISONE 20 MG ORAL TABLET 2 tabs daily for 3 days 1 tab d aily for 3 days PREDNISONE 20 MG ORAL TABLET 272856 PREDNISONE Inactive Advance Directives Directive Description Start [...] mg/dL Encounters Code Encounter Date Provider Facility CPT-22288 Level 3 Est. Patient 15:18:36 CDT Becky Se anderson [facility] [place] CPT-13526 [id number] Vst-Est Level IV 10:06:35 CDT Stephy Amborse [facility] CPT-63662 [id number]-Ury Vst-Est Level IV 10:52:00 BEATER ENGINEER Stephy Ambrose [facility] CPT-34981 Level 3 Est. Patient 18:25:53 CDT Mitch luis [facility] CPT-87138 Level 3 Est. Patient 19:43:34 CDT Mitch luis [facility] CPT-51791 Level 4 Est. Patient 09:30:18 CDT Mitch luis [facility] CPT-74191 Level 3 Est. Patient 15:10:14 CDT Joe kamara [facility] CPT-30547 Level 3 Est. Patient 15:03:46 CDT Joe kamara [facility] CPT-68503 Level 3 Est. Patient 14:21:06 CDT Mitch luis [facility] CPT-74170 Level 3 Est. Patient 14:52:06 CDT Joe kamara [facility] CPT-92050 Level 3 Est. Patient 09:34:30 BEATER ENGINEER Mitch luis [facility] CPT-89674 Level 3 Est. Patient 09:37:15 CDT Mitch luis [facility] CPT-55134 Level 3 Est. Patient 17:01:00 BEATER ENGINEER Mitch luis [facility] CPT-70461 Level 3 Est. Patient 13:53:19 BEATER ENGINEER Mitch luis [facility] CPT-90325 Level 3 Est. Patient 19:19:37 BEATER ENGINEER Mitch luis [facility] CPT-51114 Level 3 Est. Patient 13:25:53 BEATER ENGINEER Tavo touer MD [facility] CPT-64797 Level 3 Est. Patient 18:17:28 CDT Mitch luis [facility] CPT-29040 Level 3 Est. Patient 15:22:57 CDT Mitch luis [facility] CPT-25364 Level 3 Est. Patient 18:21:50 CDT Mitch luis [facility] CPT-36211 Level 3 Est. Patient 18:20:38 CDT Mitch luis [facility] CPT-22549 Level 3 Est. Patient 15:37:55 CDT Mitch luis [facility] CPT-10562 Level 2 Est. Patient 15:54:44 CDT Carmine benton MD [facility]-94268 Level 3 Est. Patient 21:46:01 BEATER ENGINEER Mitch luis [facility] CPT-89199 Level 3 Est. Patient 22:15:50 CDT Mitch luis [facility] CPT-79487 Level 3 Est. Patient 10:48:15 CDT Mitch luis [facility] CPT-08467 Level 3 Est. Patient 23:20:57 CDT Tavo toure MD [facility] CPT-14051 Level 3 Est. Patient 16:26:13 CDT Mitch luis [facility] Procedures Code Procedure Name Date Entry Date Standard Desc ription CPT-11631 Venipuncture Draw Fee 18:00:48 CDT CPT-93149 Venipuncture Draw Fee 14:56:20 CDT CPT-JTINJ Asp/Joint Injection 18:47:02 CDT CPT-91030 Venipuncture Draw Fee 09:26:17 CDT CPT-95125 PT/INR - LAB USE ONLY 13:32:49 BEATER ENGINEER CPT-77911 Venipuncture Draw Fee 13:32:49 BEATER ENGINEER CPT-03090 PT/INR - LAB USE ONLY 10:34:49 BEATER ENGINEER CPT-50624 Venipuncture Draw Fee 10:34:48 BEATER ENGINEER CPT-67648 PT/INR - LAB USE ONLY 09:22:03 BEATER ENGINEER CPT-69065 Venipuncture Draw Fee 09:22:02 BEATER ENGINEER CPT-01655 Hemoccult IFOBT - LAB USE ONLY 10:27:22 CDT CPT-93072 Venipuncture Draw Fee 08:27:08 CDT CPT-57836 Liver Profile - LAB USE ONLY 08:27:07 CDT 2 CPT-00194 Microalbumin - LAB USE ONLY 08:27:07 CDT 20 25/05/09 CPT-40727 PT/INR - LAB USE ONLY 08:27:07 CDT CPT-61513 HGBA1C - LAB USE ONLY 08:27:07 CDT CPT-98150 CBC - LAB USE ONLY 08:27:07 CDT CPT-36874 Venipuncture Draw Fee 11:09:14 CDT CPT-86117 Venipuncture Draw Fee 08:32:21 BEATER ENGINEER CPT-65115 Venipuncture Draw Fee 09:38:56 BEATER ENGINEER CPT-36475 No Charge Offi Visit 21:36:07 CDT 1 CPT-64352 Venipuncture Draw Fee 10:13:28 BEATER ENGINEER CPT-71697 Venipuncture Draw Fee 08:31:11 CDT CPT-90633 Aspir/Inject Med Joint 18:17:28 CDT CPT-82903 Venipuncture Draw Fee 10:13:30 CDT CPT-35235 Venipuncture Draw Fee 08:31:43 BEATER ENGINEER CPT-JTINJ Joint Injection 18:34:50 CDT CPT-83754 Knee 3V 12:25:09 CDT CPT-89353 Venipuncture Draw Fee 12:15:57 CDT CPT-060 Medical Surveillance Exam 21:31:43 CDT 2011 CPT-12042 Venipuncture Draw Fee 08:32:05 BEATER ENGINEER CPT-OV Office Visit 18:19:06 CDT
--- OUTSIDE RECORDS SUMMARY | 2020-01-18 13:38 | XMS REPORT | Clinical Summary ---
[...] atherosclerosis of unspecified type of vessel, crow or graft EDEMA 782.3 Resolved Mitch Urbina [...] Instructions Start Date Stop Date Generic Name [facility] Status Provider Patient Instruction GLIMEPIRIDE 4 MG ORAL TABLET 1 tablet by mouth twice daily f or diabetes GLIMEPIRIDE 99532105629 Active Mitch Urbina DO Active GLIMEPIRIDE 2 MG ORAL TABLET 1 po BID GLIMEPI RIDE 97118944524 No Longer Active Mitch Urbina DO Active AMLODIPINE BESYLATE 5 MG ORAL TABLET 1 tablet by mouth daily AMLODIPINE BESYLATE 69398367379 Active Mitch Urbina DO Active PROVIGIL 200 MG ORAL TABLET 1/2 tab po q day MODA FINIL 86459528904 Active Renee Oconnor LPN Active FAMOTIDINE 20 MG ORAL TABLET by mouth twice a day 2017 FAMOTIDINE 74686690306 No Longer Active Mitch Urbina DO Active COLCRYS 0.6 MG ORAL TABLET 1 tab qid prn gout C OLCHICINE 21704151187 No Longer Active Mitch Ambrose Carlitos Active KEFLEX 500 MG ORAL CAPSULE 1 po qid CEPHALEXI N 71887713085 No Longer Active Mitch Urbina DO Active LOSARTAN POTASSIUM 100 MG ORAL TABLET 1 pill by mouth daily, for blood pressure LOSARTAN POTASSIUM 27330460845 Active Renee Oconnor LPN Active AMLODIPINE BESYLATE 5 MG ORAL TABLET 1 tablet by mouth daily 201 01/20/04 AMLODIPINE BESYLATE 68289294363 No Longer Active Joe fulton FIELD INVESTIGATOR Active MITIGARE 0.6 MG ORAL CAPSULE 2 capsules at onset of go ut pain, then take one capsule at 1 hour if symptoms persist. COLCHICINE 59 575396303 Active Mitch Urbina DO Active COUMADIN 1 MG ORAL TABLET 2 tabs orally daily with the 5mg tab to equal 7mg daily WARFARIN SODIUM 42971873081 Active Mitch Urbina DO Active INVOKANA 100 MG ORAL TABLET 1 tablet orally daily CANAGLIFLOZIN 96087570420 Active Curly Coker MD Active MINOXIDIL 2.5 MG ORAL TABLET 1 tablet daily for high blood press ure MINOXIDIL 84531419652 Active Renee Elvin DE LA ROSA Active MECLIZINE HCL 25 MG ORAL TABLET 1 po tid 3 days, then 1/2 ta b tid 3 days MECLIZINE HCL 87278774356 No Longer Active Corey SEGURA Active ALLOPURINOL 300 MG ORAL TABLET Take 1 tablet by mouth daily 2012 ALLOPURINOL 13556369721 No Longer Active Corey SEGURA Active CLONIDINE HCL 0.1 MG ORAL TABLET 1 po bid 7 days, then 1/2 t ab po bid 7 days CLONIDINE HCL 62240238992 No Longer Active Corey SEGURA Active COUMADIN 5 MG ORAL TABLET 1 tab PO daily WARFAR IN SODIUM 58100822354 Active Curly Coker MD Active COUMADIN 4 MG ORAL TABLET 1 tablet daily WARFAR IN SODIUM 76659014535 No Longer Active Corey SEGURA Active POLYTRIM 71274-1.1 UNIT/ML-% OPHTHALMIC SOLUTION 1 rui p in affected eye every 3 hours while awake x 7 days POLYMYXIN B-TRIMETHOP RIM 09923160155 No Longer Active Corey SEGURA Active LOSARTAN POTASSIUM-HCTZ 100-12.5 MG ORAL TABLET 1 by m outh daily for high blood pressure LOSARTAN POTASSIUM-HCTZ 25680628127 No Longer A ctive Mitch Urbina DO Active LISINOPRIL-HYDROCHLOROTHIAZIDE 20-12.5 MG ORAL TABLET 1 tab by m outh daily LISINOPRIL-HYDROCHLOROTHIAZIDE 99862197291 No Longer Active Mitch Urbina DO Active LISINOPRIL 20 MG ORAL TABLET 1 tab po at HS LIS INOPRIL 13983779109 No Longer Active Mitch Urbina DO Active COUMADIN 5 MG ORAL TABLET 1 by mouth every other day 2 WARFARIN SODIUM 53894051591 No Longer Active Mitch Urbina DO Active COUMADIN 6 MG ORAL TABLET 1 by mouth every other day 2 WARFARIN SODIUM 46979772696 No Longer Active Mitch Urbina DO Active SIMVASTATIN 40 MG ORAL TABLET 1 tab daily at bedtime SIMVASTATIN 35649194131 Active Renee Oconnor LPN Active SIMVASTATIN 20 MG ORAL TABLET 1 tab daily at bedtime 2 SIMVASTATIN 38247528583 No Longer Active Mitch Urbina DO Active LOVENOX 100 MG/ML SUBCUTANEOUS SOLUTION One injection twice a da y ENOXAPARIN SODIUM 67118630137 No Longer Active Carmine Yusuf MD Active JANUVIA 50 MG ORAL TABLET Take one by mouth daily SITAGLIPTIN PHOSPHATE 63340182819 Active Mitch Urbina DO Active JANUVIA 100 MG ORAL TABLET 1/2 by mouth every day 2011 SITAGLIPTIN PHOSPHATE 57413493609 No Longer Active Bijal Segal RN Acti ve METFORMIN HCL 500 MG ORAL TABLET 2 by mouth twice daily METFORMIN HCL 49810468034 No Longer Active Renee Oconnor LPN Active COLCRYS 0.6 MG ORAL TABLET 1 po q 6 hours prn gout pain COLCHICINE 56150284173 No Longer Active Camila Reese Active LISINOPRIL 5 MG ORAL TABLET 1 by mouth every day 11/17 LISINOPRIL 78733951291 No Longer Active Nguyen Perez Active KLOR-CON 20 MEQ ORAL PACKET Take one by mouth daily 09/10/08 POTASSIUM CHLORIDE 06600806969 No Longer Active Nguyen Perez Active FUROSEMIDE 40 MG ORAL TABLET 1 by mouth daily F UROSEMIDE 10042851809 No Longer Active Nguyen Ana Active PROVIGIL 100 MG ORAL TABLET Take one by mouth daily 08/20/04 MODAFINIL 37366265005 No Longer Active Mitch Urbina DO Active BACTRIM DS 800-160 MG ORAL TABLET 1 tab by mouth twice daily 201 10/19/09 TRIMETHOPRIM-SULFAMETHOXAZOLE 84501422408 No Longer Active Elian Hays MD Active ADULT ASPIRIN LOW STRENGTH 81 MG ORAL TABLET DISINTEGR ATING 1 by mouth every daily ASPIRIN 72153145775 Active Mitch Urbina DO Ac tive METOPROLOL TARTRATE 50 MG ORAL TABLET 1 by mouth twice daily METOPROLOL TARTRATE 38890907487 Active Mitch Urbina DO Active BACTRIM DS 800-160 MG ORAL TABLET 1 tab by mouth twice daily 201 10/19/09 BACTRIM DS 800-160 MG ORAL TABLET 565197 TRIMETHOPRIM-SULFAMETHOXAZOLE Inactive PROVIGIL 100 MG ORAL TABLET Take one by mouth daily 08/20/04 PROVIGIL 100 MG ORAL TABLET 658043 MODAFINIL Inactive FUROSEMIDE 40 MG ORAL TABLET 1 by mouth daily FUROSEMIDE 40 MG ORAL TABLET 926081 FUROSEMIDE Inactive KLOR-CON 20 MEQ ORAL PACKET Take one by mouth daily 09/10/08 KLOR- CON 20 MEQ ORAL PACKET 8651536 POTASSIUM CHLORIDE Inactive LISINOPRIL 5 MG ORAL TABLET 1 by mouth every day 11/17 LISINOPRIL 5 MG ORAL TABLET 976508 LISINOPRIL Inactive COLCRYS 0.6 MG ORAL TABLET 1 po q 6 hours prn gout pain COLCRYS 0.6 MG ORAL TABLET 327102 COLCHICINE Inactive JANUVIA 100 MG ORAL TABLET 1/2 by mouth every day 2011 JANUVIA 100 MG ORAL TABLET SITAGLIPTIN PHOSPHATE Inactive SIMVASTATIN 20 MG ORAL TABLET 1 tab daily at bedtime 2 SIMVASTATIN 20 MG ORAL TABLET 430508 SIMVASTATIN Inactive COUMADIN 6 MG ORAL TABLET 1 by mouth every other day 2 COUMADIN 6 MG ORAL TABLET 500187 WARFARIN SODIUM Inactive COUMADIN 5 MG ORAL TABLET 1 by mouth every other day 2 COUMADIN 5 MG ORAL TABLET 036960 WARFARIN SODIUM Inactive LISINOPRIL 20 MG ORAL TABLET 1 tab po at HS LISINOPRIL 20 MG ORAL TABLET 371245 LISINOPRIL Inactive LISINOPRIL-HYDROCHLOROTHIAZIDE 20-12.5 MG ORAL TABLET 1 tab by m outh daily LISINOPRIL-HYDROCHLOROTHIAZIDE 20-12.5 MG ORAL TABLET 480438 LISINOPRIL-HYDROCHLOROTHIAZIDE Inactive POLYTRIM 83039-5.1 UNIT/ML-% OPHTHALMIC SOLUTION 1 rui p in affected eye every 3 hours while awake x 7 days POLYTRIM 1000 0-0.1 UNIT/ML-% OPHTHALMIC SOLUTION 613614 POLYMYXIN B-TRIMETHOPRIM Inactive COUMADIN 4 MG ORAL TABLET 1 tablet daily COUMADIN 4 MG ORAL TABLET 873774 WARFARIN SODIUM Inactive CLONIDINE HCL 0.1 MG ORAL TABLET 1 po bid 7 days, then 1/2 t ab po bid 7 days CLONIDINE HCL 0.1 MG ORAL TABLET 681080 CLONIDIN E HCL Inactive ALLOPURINOL 300 MG ORAL TABLET Take 1 tablet by mouth daily 2012 ALLOPURINOL 300 MG ORAL TABLET 444467 ALLOPURINOL I nactive MECLIZINE HCL 25 MG ORAL TABLET 1 po tid 3 days, then 1/2 ta b tid 3 days MECLIZINE HCL 25 MG ORAL TABLET 923266 MECLIZINE HCL Inactive AMLODIPINE BESYLATE 5 MG ORAL TABLET 1 tablet by mouth daily 201 01/20/04 AMLODIPINE BESYLATE 5 MG ORAL TABLET 964839 AMLODIPINE BESYLATE Inactive KEFLEX 500 MG ORAL CAPSULE 1 po qid K EFLEX 500 MG ORAL CAPSULE 450316 CEPHALEXIN Inactive COLCRYS 0.6 MG ORAL TABLET 1 tab qid prn gout COLCRYS 0.6 MG ORAL TABLET 906932 COLCHICINE Inactive FAMOTIDINE 20 MG ORAL TABLET by mouth twice a day 2017 FAMOTIDINE 20 MG ORAL TABLET 516562 FAMOTIDINE Inactive GLIMEPIRIDE 2 MG ORAL TABLET 1 po BID GLIMEPIRIDE 2 MG ORAL TABLET 946297 GLIMEPIRIDE Inactive LOVENOX 100 MG/ML SUBCUTANEOUS SOLUTION One injection twice a da y LOVENOX 100 MG/ML SUBCUTANEOUS SOLUTION 449456 ENOXAPAR IN SODIUM Inactive Vital Signs Date [...] HGBA1C - Chemistry cholesterol, serum 136 mg/dL 736-822 8168/12/06 triglyceride, serum, fasting 247 mg/dL 30-200 HDL cholesterol, serum 41 mg/dL 32-60 LDL cholesterol, serum 46 mg/dL 0-130 aspartate aminotransferase (SGOT), serum 22 U/L 15-37 alanine aminotransferase (SGPT), serum 30 U/L 12-78 bilirubin, serum, total 0.80 mg/dL 0.00-1.00 hemoglobin A1C, blood, as % of total hemoglobin 6.4 % 4.3-6.0 Encounters Code Encounter Date Provider Facility CPT-57247 Level 3 Est. Patient 18:25:53 CDT Mitch luis [facility] CPT-23813 Level 3 Est. Patient 19:43:34 CDT Mitch luis [facility] CPT-89378 Level 4 Est. Patient 09:30:18 CDT Mitch luis [facility] CPT-19043 Level 3 Est. Patient 15:10:14 CDT Joe kamara [facility] CPT-07567 Level 3 Est. Patient 15:03:46 CDT Joe kamara [facility] CPT-25658 Level 3 Est. Patient 14:21:06 CDT Mitch Arnol Nona luis [facility] CPT-44490 Level 3 Est. Patient 14:52:06 CDT Joe kamara [facility] CPT-42060 Level 3 Est. Patient 09:34:30 SAMPLER AND TEST PREPARER Mitch Arnol Nona luis [facility] CPT-35975 Level 3 Est. Patient 09:37:15 CDT Mitch luis [facility] CPT-90258 Level 3 Est. Patient 17:01:00 SAMPLER AND TEST PREPARER Mitch luis [facility] CPT-97670 Level 3 Est. Patient 13:53:19 SAMPLER AND TEST PREPARER Mitch luis [facility] CPT-57189 Level 3 Est. Patient 19:19:37 SAMPLER AND TEST PREPARER Mitch luis [facility] CPT-29580 Level 3 Est. Patient 13:25:53 SAMPLER AND TEST PREPARER Tavo toure MD [facility] CPT-45701 Level 3 Est. Patient 18:17:28 CDT Mitch Arnol luis [facility] CPT-00554 Level 3 Est. Patient 15:22:57 CDT Mitch Arnol luis [facility] CPT-62770 Level 3 Est. Patient 18:21:50 CDT Mitch luis [facility] CPT-78142 Level 3 Est. Patient 18:20:38 CDT Mitch Arnol luis [facility] CPT-18800 Level 3 Est. Patient 15:37:55 CDT Mitch Arnol luis [facility] CPT-93299 Level 2 Est. Patient 15:54:44 CDT Carmine benton MD [facility] CPT-98730 Level 3 Est. Patient 21:46:01 SAMPLER AND TEST PREPARER Mitch luis [facility] CPT-18507 Level 3 Est. Patient 22:15:50 CDT Mitch Arnol luis [facility] CPT-44596 Level 3 Est. Patient 10:48:15 CDT Mitch luis [facility] CPT-01369 Level 3 Est. Patient 23:20:57 CDT Tavo toure MD [facility] CPT-09733 Level 3 Est. Patient 16:26:13 CDT Mitch luis [facility] Procedures Code Procedure Name Date Entry Date Standard Desc ription CPT-JTINJ Asp/Joint Injection 18:47:02 CDT CPT-85490 Venipuncture Draw Fee 09:26:17 CDT CPT-36326 PT/INR - LAB USE ONLY 13:32:49 SAMPLER AND TEST PREPARER CPT-43545 Venipuncture Draw Fee 13:32:49 SAMPLER AND TEST PREPARER CPT-83853 PT/INR - LAB USE ONLY 10:34:49 SAMPLER AND TEST PREPARER CPT-17840 Venipuncture Draw Fee 10:34:48 SAMPLER AND TEST PREPARER CPT-38492 PT/INR - LAB USE ONLY 09:22:03 SAMPLER AND TEST PREPARER CPT-16219 Venipuncture Draw Fee 09:22:02 SAMPLER AND TEST PREPARER CPT-67873 Hemoccult IFOBT - LAB USE ONLY 10:27:22 CDT CPT-88460 Venipuncture Draw Fee 08:27:08 CDT CPT-51866 Liver Profile - LAB USE ONLY 08:27:07 CDT 2 CPT-87483 Microalbumin - LAB USE ONLY 08:27:07 CDT 20 25/05/09 CPT-04568 PT/INR - LAB USE ONLY 08:27:07 CDT CPT-19102 HGBA1C - LAB USE ONLY 08:27:07 CDT CPT-72418 CBC - LAB USE ONLY 08:27:07 CDT CPT-07976 Venipuncture Draw Fee 11:09:14 CDT CPT-94983 Venipuncture Draw Fee 08:32:21 SAMPLER AND TEST PREPARER CPT-28096 Venipuncture Draw Fee 09:38:56 SAMPLER AND TEST PREPARER CPT-90899 No Charge Offi Visit 21:36:07 CDT 1 CPT-27468 Venipuncture Draw Fee 10:13:28 SAMPLER AND TEST PREPARER CPT-57099 Venipuncture Draw Fee 08:31:11 CDT CPT-10528 Aspir/Inject Med Joint 18:17:28 CDT CPT-54093 Venipuncture Draw Fee 10:13:30 CDT CPT-41744 Venipuncture Draw Fee 08:31:43 SAMPLER AND TEST PREPARER CPT-JTINJ Joint Injection 18:34:50 CDT CPT-07594 Knee 3V 12:25:09 CDT CPT-52020 Venipuncture Draw Fee 12:15:57 CDT CPT-060 Medical Surveillance Exam 21:31:43 CDT 2011 CPT-77690 Venipuncture Draw Fee 08:32:05 SAMPLER AND TEST PREPARER CPT-OV Office Visit 18:19:06 CDT
--- OUTSIDE RECORDS SUMMARY | 2020-01-18 13:39 | XMS REPORT | Clinical Summary ---
Author Author Admin, Mitch Leon Organization 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 MINOXIDIL 2.5 MG ORAL TABLET 1 tablet twice daily for high b lood pressure MINOXIDIL 98884312047 Active Mitch Urbina DO Ac tive METFORMIN HCL ER 500 MG ORAL TABLET EXTENDED RELEASE 2 4 HOUR 2 tablets by mouth twice daily METFORMIN HCL 97004395316 Active Mitch Urbina DO Active GLIMEPIRIDE 4 MG ORAL TABLET 1 tablet by mouth twice daily f or diabetes GLIMEPIRIDE 48331126324 Active Mitch Urbina DO Active GLIMEPIRIDE 2 MG ORAL TABLET 1 po BID GLIMEPI RIDE 48859545848 No Longer Active Mitch Urbina DO Active AMLODIPINE BESYLATE 5 MG ORAL TABLET 1 tablet by mouth daily AMLODIPINE BESYLATE 15896772755 Active Mitch Urbina DO Active PROVIGIL 200 MG ORAL TABLET 1/2 tab po q day MODA FINIL 48854515507 Active Renee Oconnor LPN Active FAMOTIDINE 20 MG ORAL TABLET by mouth twice a day 2017 FAMOTIDINE 45130393619 No Longer Active Mitch Urbina DO Active COLCRYS 0.6 MG ORAL TABLET 1 tab qid prn gout C OLCHICINE 08984520730 No Longer Active Mitch Urbina DO Active KEFLEX 500 MG ORAL CAPSULE 1 po qid CEPHALEXI N 50412721373 No Longer Active Mitch Urbina DO Active LOSARTAN POTASSIUM 100 MG ORAL TABLET 1 pill by mouth daily, for blood pressure LOSARTAN POTASSIUM 11373571050 Active Mitch Arnol Carlitos VELASQUEZ Active AMLODIPINE BESYLATE 5 MG ORAL TABLET 1 tablet by mouth daily 201 01/20/04 AMLODIPINE BESYLATE 73313167548 No Longer Active Joe fulton APRN Active MITIGARE 0.6 MG ORAL CAPSULE 2 capsules at onset of go ut pain, then take one capsule at 1 hour if symptoms persist. COLCHICINE 59 119043048 Active Mitch Urbina DO Active COUMADIN 1 MG ORAL TABLET 2 tabs orally daily with the 5mg tab to equal 7mg daily WARFARIN SODIUM 54209342016 Active Renee Oconnor LPN Active INVOKANA 100 MG ORAL TABLET 1 tablet orally daily CANAGLIFLOZIN 21873146760 Active Mitch Urbina DO Active MECLIZINE HCL 25 MG ORAL TABLET 1 po tid 3 days, then 1/2 ta b tid 3 days MECLIZINE HCL 21722796114 No Longer Active Corey SEGURA Active ALLOPURINOL 300 MG ORAL TABLET Take 1 tablet by mouth daily 2012 ALLOPURINOL 65350552928 No Longer Active Corey SEGURA Active CLONIDINE HCL 0.1 MG ORAL TABLET 1 po bid 7 days, then 1/2 t ab po bid 7 days CLONIDINE HCL 95216062269 No Longer Active Corey SEGURA Active COUMADIN 5 MG ORAL TABLET 1 tab PO daily WARFAR IN SODIUM 52991898084 Active Renee Oconnor LPN Active COUMADIN 4 MG ORAL TABLET 1 tablet daily WARFAR IN SODIUM 22743565319 No Longer Active Corey SEGURA Active POLYTRIM 26377-5.1 UNIT/ML-% OPHTHALMIC SOLUTION 1 rui p in affected eye every 3 hours while awake x 7 days POLYMYXIN B-TRIMETHOP RIM 32896114823 No Longer Active Corey SEGURA Active LOSARTAN POTASSIUM-HCTZ 100-12.5 MG ORAL TABLET 1 by m outh daily for high blood pressure LOSARTAN POTASSIUM-HCTZ 75896407415 No Longer A ctive Mitch Urbina DO Active LISINOPRIL-HYDROCHLOROTHIAZIDE 20-12.5 MG ORAL TABLET 1 tab by m outh daily LISINOPRIL-HYDROCHLOROTHIAZIDE 83389336078 No Longer Active Mitch Urbina DO Active LISINOPRIL 20 MG ORAL TABLET 1 tab po at HS LIS INOPRIL 28674876120 No Longer Active Mitch Urbina DO Active COUMADIN 5 MG ORAL TABLET 1 by mouth every other day 2 WARFARIN SODIUM 89838314161 No Longer Active Mitch Urbina DO Active COUMADIN 6 MG ORAL TABLET 1 by mouth every other day 2 WARFARIN SODIUM 14508752450 No Longer Active Mitch Urbina DO Active SIMVASTATIN 40 MG ORAL TABLET 1 tab daily at bedtime SIMVASTATIN 12112454014 Active Maria Rivas RN Active SIMVASTATIN 20 MG ORAL TABLET 1 tab daily at bedtime 2 SIMVASTATIN 74209339417 No Longer Active Mitch Urbina DO Active LOVENOX 100 MG/ML SUBCUTANEOUS SOLUTION One injection twice a da y ENOXAPARIN SODIUM 70106734334 No Longer Active Carmine Yusuf MD Active JANUVIA 50 MG ORAL TABLET Take one by mouth daily SITAGLIPTIN PHOSPHATE 04719080942 Active Renee Oconnor LPN Active JANUVIA 100 MG ORAL TABLET 1/2 by mouth every day 2011 SITAGLIPTIN PHOSPHATE 23829164788 No Longer Active Bijal Segal RN Acti ve METFORMIN HCL 500 MG ORAL TABLET 2 by mouth twice daily METFORMIN HCL 08695318505 No Longer Active Renee Oconnor LPN Active COLCRYS 0.6 MG ORAL TABLET 1 po q 6 hours prn gout pain COLCHICINE 76730573799 No Longer Active Camila Reese Active LISINOPRIL 5 MG ORAL TABLET 1 by mouth every day 11/17 LISINOPRIL 57300374335 No Longer Active Nguyen Ana Active KLOR-CON 20 MEQ ORAL PACKET Take one by mouth daily 09/10/08 POTASSIUM CHLORIDE 34027117932 No Longer Active Nguyen Ana Active FUROSEMIDE 40 MG ORAL TABLET 1 by mouth daily F UROSEMIDE 55517181953 No Longer Active Nguyen Ana Active PROVIGIL 100 MG ORAL TABLET Take one by mouth daily 08/20/04 MODAFINIL 15463206087 No Longer Active Mitch Urbina DO Active BACTRIM DS 800-160 MG ORAL TABLET 1 tab by mouth twice daily 201 10/19/09 TRIMETHOPRIM-SULFAMETHOXAZOLE 42828182620 No Longer Active Elian Hays MD Active ADULT ASPIRIN LOW STRENGTH 81 MG ORAL TABLET DISINTEGR ATING 1 by mouth every daily ASPIRIN 21796943992 Active Mitch Urbina DO Ac tive METOPROLOL TARTRATE 50 MG ORAL TABLET 1 by mouth twice daily METOPROLOL TARTRATE 41788412060 Active Maria Rivas RN Ac tive BACTRIM DS 800-160 MG ORAL TABLET 1 tab by mouth twice daily 201 10/19/09 BACTRIM DS 800-160 MG ORAL TABLET 426349 TRIMETHOPRIM-SULFAMETHOXAZOLE Inactive PROVIGIL 100 MG ORAL TABLET Take one by mouth daily 08/20/04 PROVIGIL 100 MG ORAL TABLET 895345 MODAFINIL Inactive FUROSEMIDE 40 MG ORAL TABLET 1 by mouth daily FUROSEMIDE 40 MG ORAL TABLET 662794 FUROSEMIDE Inactive KLOR-CON 20 MEQ ORAL PACKET Take one by mouth daily 09/10/08 KLOR- CON 20 MEQ ORAL PACKET 4476312 POTASSIUM CHLORIDE Inactive LISINOPRIL 5 MG ORAL TABLET 1 by mouth every day 11/17 LISINOPRIL 5 MG ORAL TABLET 645856 LISINOPRIL Inactive COLCRYS 0.6 MG ORAL TABLET 1 po q 6 hours prn gout pain COLCRYS 0.6 MG ORAL TABLET 869292 COLCHICINE Inactive JANUVIA 100 MG ORAL TABLET 1/2 by mouth every day 2011 JANUVIA 100 MG ORAL TABLET SITAGLIPTIN PHOSPHATE Inactive SIMVASTATIN 20 MG ORAL TABLET 1 tab daily at bedtime 2 SIMVASTATIN 20 MG ORAL TABLET 564983 SIMVASTATIN Inactive COUMADIN 6 MG ORAL TABLET 1 by mouth every other day 2 COUMADIN 6 MG ORAL TABLET 183743 WARFARIN SODIUM Inactive COUMADIN 5 MG ORAL TABLET 1 by mouth every other day 2 COUMADIN 5 MG ORAL TABLET 032936 WARFARIN SODIUM Inactive LISINOPRIL 20 MG ORAL TABLET 1 tab po at HS LISINOPRIL 20 MG ORAL TABLET 615196 LISINOPRIL Inactive LISINOPRIL-HYDROCHLOROTHIAZIDE 20-12.5 MG ORAL TABLET 1 tab by m outh daily LISINOPRIL-HYDROCHLOROTHIAZIDE 20-12.5 MG ORAL TABLET 957774 LISINOPRIL-HYDROCHLOROTHIAZIDE Inactive POLYTRIM 74375-9.1 UNIT/ML-% OPHTHALMIC SOLUTION 1 rui p in affected eye every 3 hours while awake x 7 days POLYTRIM 1000 0-0.1 UNIT/ML-% OPHTHALMIC SOLUTION 437499 POLYMYXIN B-TRIMETHOPRIM Inactive COUMADIN 4 MG ORAL TABLET 1 tablet daily COUMADIN 4 MG ORAL TABLET 551092 WARFARIN SODIUM Inactive CLONIDINE HCL 0.1 MG ORAL TABLET 1 po bid 7 days, then 1/2 t ab po bid 7 days CLONIDINE HCL 0.1 MG ORAL TABLET 129457 CLONIDIN E HCL Inactive ALLOPURINOL 300 MG ORAL TABLET Take 1 tablet by mouth daily 2012 ALLOPURINOL 300 MG ORAL TABLET 294583 ALLOPURINOL I nactive MECLIZINE HCL 25 MG ORAL TABLET 1 po tid 3 days, then 1/2 ta b tid 3 days MECLIZINE HCL 25 MG ORAL TABLET 773323 MECLIZINE HCL Inactive AMLODIPINE BESYLATE 5 MG ORAL TABLET 1 tablet by mouth daily 201 01/20/04 AMLODIPINE BESYLATE 5 MG ORAL TABLET 916825 AMLODIPINE BESYLATE Inactive KEFLEX 500 MG ORAL CAPSULE 1 po qid K EFLEX 500 MG ORAL CAPSULE 249046 CEPHALEXIN Inactive COLCRYS 0.6 MG ORAL TABLET 1 tab qid prn gout COLCRYS 0.6 MG ORAL TABLET 806030 COLCHICINE Inactive FAMOTIDINE 20 MG ORAL TABLET by mouth twice a day 2017 FAMOTIDINE 20 MG ORAL TABLET 764822 FAMOTIDINE Inactive GLIMEPIRIDE 2 MG ORAL TABLET 1 po BID GLIMEPIRIDE 2 MG ORAL TABLET 617869 GLIMEPIRIDE Inactive LOVENOX 100 MG/ML SUBCUTANEOUS SOLUTION One injection twice a da y LOVENOX 100 MG/ML SUBCUTANEOUS SOLUTION 941646 ENOXAPAR IN SODIUM Inactive PREDNISONE 20 MG ORAL TABLET 2 tabs daily for 3 days 1 tab d aily for 3 days PREDNISONE 20 MG ORAL TABLET 623115 PREDNISONE Inactive Advance Directives Directive Description Start [...] mg/dL Encounters Code Encounter Date Provider Facility CPT-70816 Level 3 Est. Patient 15:18:36 CDT Becky anderson [facility] CPT-70549 [id number] Vst-Est Level IV 10:06:35 CDT Stephy Ambrose [facility] CPT-38013 [id number] Vst-Est Level IV 10:52:00 FINANCIAL COMPLIANCE OFFICER Stephy Ambrose [facility] CPT-41254 Level 3 Est. Patient 18:25:53 CDT Mitch luis [facility] CPT-18315 Level 3 Est. Patient 19:43:34 CDT Mitch luis [facility] CPT-37352 Level 4 Est. Patient 09:30:18 CDT Mitch luis [facility] CPT-49128 Level 3 Est. Patient 15:10:14 CDT Joe kamara [facility] CPT-22922 Level 3 Est. Patient 15:03:46 CDT Joe kamara [facility] CPT-68930 Level 3 Est. Patient 14:21:06 CDT Mitch luis [facility] CPT-33348 Level 3 Est. Patient 14:52:06 CDT Joe kamara [facility] CPT-67157 Level 3 Est. Patient 09:34:30 FINANCIAL COMPLIANCE OFFICER Mitch luis [facility] CPT-66651 Level 3 Est. Patient 09:37:15 CDT Mitch luis [facility] CPT-33991 Level 3 Est. Patient 17:01:00 FINANCIAL COMPLIANCE OFFICER Mitch luis [facility] CPT-00728 Level 3 Est. Patient 13:53:19 FINANCIAL COMPLIANCE OFFICER Mitch luis [facility] CPT-30994 Level 3 Est. Patient 19:19:37 FINANCIAL COMPLIANCE OFFICER Mitch luis [facility] CPT-72768 Level 3 Est. Patient 13:25:53 FINANCIAL COMPLIANCE OFFICER Tavo toure MD [facility] CPT-51619 Level 3 Est. Patient 18:17:28 CDT Mitch luis [facility] CPT-96844 Level 3 Est. Patient 15:22:57 CDT Mitch luis [facility] CPT-91428 Level 3 Est. Patient 18:21:50 CDT Mitch luis [facility] CPT-42455 Level 3 Est. Patient 18:20:38 CDT Mitch luis [facility] CPT-27897 Level 3 Est. Patient 15:37:55 CDT Mitch luis [facility] CPT-15805 Level 2 Est. Patient 15:54:44 CDT Carmine benton MD [facility]-34596 Level 3 Est. Patient 21:46:01 FINANCIAL COMPLIANCE OFFICER Mitch luis [facility] CPT-67404 Level 3 Est. Patient 22:15:50 CDT Mitch luis [facility] CPT-49086 Level 3 Est. Patient 10:48:15 CDT Mitch luis [facility] CPT-88321 Level 3 Est. Patient 23:20:57 CDT Tavo toure MD [facility] CPT-39867 Level 3 Est. Patient 16:26:13 CDT Mitch luis [facility] Procedures Code Procedure Name Date Entry Date Standard Desc ription CPT-35559 Venipuncture Draw Fee 17:20:50 CDT CPT-15120 Venipuncture Draw Fee 18:00:48 CDT CPT-98584 Venipuncture Draw Fee 14:56:20 CDT CPT-JTINJ Asp/Joint Injection 18:47:02 CDT CPT-16061 Venipuncture Draw Fee 09:26:17 CDT CPT-06594 PT/INR - LAB USE ONLY 13:32:49 FINANCIAL COMPLIANCE OFFICER CPT-71190 Venipuncture Draw Fee 13:32:49 FINANCIAL COMPLIANCE OFFICER CPT-11653 PT/INR - LAB USE ONLY 10:34:49 FINANCIAL COMPLIANCE OFFICER CPT-57405 Venipuncture Draw Fee 10:34:48 FINANCIAL COMPLIANCE OFFICER CPT-35656 PT/INR - LAB USE ONLY 09:22:03 FINANCIAL COMPLIANCE OFFICER CPT-41058 Venipuncture Draw Fee 09:22:02 FINANCIAL COMPLIANCE OFFICER CPT-62667 Hemoccult IFOBT - LAB USE ONLY 10:27:22 CDT CPT-64692 Venipuncture Draw Fee 08:27:08 CDT CPT-80298 Liver Profile - LAB USE ONLY 08:27:07 CDT 2 CPT-41307 Microalbumin - LAB USE ONLY 08:27:07 CDT 20 25/05/09 CPT-30421 PT/INR - LAB USE ONLY 08:27:07 CDT CPT-68332 HGBA1C - LAB USE ONLY 08:27:07 CDT CPT-22512 CBC - LAB USE ONLY 08:27:07 CDT CPT-41300 Venipuncture Draw Fee 11:09:14 CDT CPT-74371 Venipuncture Draw Fee 08:32:21 FINANCIAL COMPLIANCE OFFICER CPT-48898 Venipuncture Draw Fee 09:38:56 FINANCIAL COMPLIANCE OFFICER CPT-78025 No Charge Offi Visit 21:36:07 CDT 1 CPT-89462 Venipuncture Draw Fee 10:13:28 FINANCIAL COMPLIANCE OFFICER CPT-36732 Venipuncture Draw Fee 08:31:11 CDT CPT-84349 Aspir/Inject Med Joint 18:17:28 CDT CPT-20523 Venipuncture Draw Fee 10:13:30 CDT CPT-65930 Venipuncture Draw Fee 08:31:43 FINANCIAL COMPLIANCE OFFICER CPT-JTINJ Joint Injection 18:34:50 CDT CPT-75867 Knee 3V 12:25:09 CDT CPT-70674 Venipuncture Draw Fee 12:15:57 CDT CPT-060 Medical Surveillance Exam 21:31:43 CDT 2011 CPT-40832 Venipuncture Draw Fee 08:32:05 FINANCIAL COMPLIANCE OFFICER CPT-OV Office Visit 18:19:06 CDT
--- OUTSIDE RECORDS SUMMARY | 2020-01-18 13:39 | XMS REPORT | Clinical Summary ---
[...] week, then once daily FLUTICASONE AL OPIONATE 66302879231 Active Becky Sell HAMMER FITTER Active PREDNISONE 20 MG ORAL TABLET 2 tabs daily for 3 days 1 tab d aily for 3 days PREDNISONE 54537108106 No Longer Active Becky Sell HAMMER FITTER Active MINOXIDIL 2.5 MG ORAL TABLET 1 tablet twice daily for high b lood pressure MINOXIDIL 46897604030 Active Mitch Urbina DO Ac tive METFORMIN HCL ER 500 MG ORAL TABLET EXTENDED RELEASE 2 4 HOUR 2 tablets by mouth twice daily METFORMIN HCL 85169205338 Active Mitch Urbina DO Active GLIMEPIRIDE 4 MG ORAL TABLET 1 tablet by mouth twice daily f or diabetes GLIMEPIRIDE 06452941360 Active Mitch Urbina DO Active GLIMEPIRIDE 2 MG ORAL TABLET 1 po BID GLIMEPI RIDE 22114423940 No Longer Active Mitch Urbina DO Active AMLODIPINE BESYLATE 5 MG ORAL TABLET 1 tablet by mouth daily AMLODIPINE BESYLATE 35673102146 Active Mitch Urbina DO Active PROVIGIL 200 MG ORAL TABLET 1/2 tab po q day MODA FINIL 71906993748 Active Renee Oconnor LPN Active FAMOTIDINE 20 MG ORAL TABLET by mouth twice a day 2017 FAMOTIDINE 22409958408 No Longer Active Mitch Urbina DO Active COLCRYS 0.6 MG ORAL TABLET 1 tab qid prn gout C OLCHICINE 13564650771 No Longer Active Mitch Urbina DO Active KEFLEX 500 MG ORAL CAPSULE 1 po qid CEPHALEXI N 34545935989 No Longer Active Mitch Urbina DO Active LOSARTAN POTASSIUM 100 MG ORAL TABLET 1 pill by mouth daily, for blood pressure LOSARTAN POTASSIUM 11650996223 Active Mitch Urbina DO Active AMLODIPINE BESYLATE 5 MG ORAL TABLET 1 tablet by mouth daily 201 01/20/04 AMLODIPINE BESYLATE 19532091384 No Longer Active Joe fulton APRN Active MITIGARE 0.6 MG ORAL CAPSULE 2 capsules at onset of go ut pain, then take one capsule at 1 hour if symptoms persist. COLCHICINE 59 331379874 Active Mitch Urbina DO Active COUMADIN 1 MG ORAL TABLET 2 tabs orally daily with the 5mg tab to equal 7mg daily WARFARIN SODIUM 44943764181 Active Renee Oconnor LPN Active INVOKANA 100 MG ORAL TABLET 1 tablet orally daily CANAGLIFLOZIN 89546302313 Active Mitch Urbina DO Active MECLIZINE HCL 25 MG ORAL TABLET 1 po tid 3 days, then 1/2 ta b tid 3 days MECLIZINE HCL 50592667923 No Longer Active Corey SEGURA Active ALLOPURINOL 300 MG ORAL TABLET Take 1 tablet by mouth daily 2012 ALLOPURINOL 54929021153 No Longer Active Corey SEGURA Active CLONIDINE HCL 0.1 MG ORAL TABLET 1 po bid 7 days, then 1/2 t ab po bid 7 days CLONIDINE HCL 49582558544 No Longer Active Corey SEGURA Active COUMADIN 5 MG ORAL TABLET 1 tab PO daily WARFAR IN SODIUM 23649483628 Active Renee Oconnor LPN Active COUMADIN 4 MG ORAL TABLET 1 tablet daily WARFAR IN SODIUM 14001386812 No Longer Active Corey SEGURA Active POLYTRIM 05531-4.1 UNIT/ML-% OPHTHALMIC SOLUTION 1 rui p in affected eye every 3 hours while awake x 7 days POLYMYXIN B-TRIMETHOP RIM 45327769580 No Longer Active Corey SEGURA Active LOSARTAN POTASSIUM-HCTZ 100-12.5 MG ORAL TABLET 1 by m outh daily for high blood pressure LOSARTAN POTASSIUM-HCTZ 34382096790 No Longer A ctive Mitch Urbina DO Active LISINOPRIL-HYDROCHLOROTHIAZIDE 20-12.5 MG ORAL TABLET 1 tab by m outh daily LISINOPRIL-HYDROCHLOROTHIAZIDE 34061470597 No Longer Active Mitch Urbina DO Active LISINOPRIL 20 MG ORAL TABLET 1 tab po at HS LIS INOPRIL 87350341321 No Longer Active Mitch Urbina DO Active COUMADIN 5 MG ORAL TABLET 1 by mouth every other day 2 WARFARIN SODIUM 84797391796 No Longer Active Mitch Urbina DO Active COUMADIN 6 MG ORAL TABLET 1 by mouth every other day 2 WARFARIN SODIUM 64450148356 No Longer Active Mitch Urbina DO Active SIMVASTATIN 40 MG ORAL TABLET 1 tab daily at bedtime SIMVASTATIN 63341086641 Active Maria Rivas RN Active SIMVASTATIN 20 MG ORAL TABLET 1 tab daily at bedtime 2 SIMVASTATIN 12753956183 No Longer Active Mitch Urbina DO Active LOVENOX 100 MG/ML SUBCUTANEOUS SOLUTION One injection twice a da y ENOXAPARIN SODIUM 31982690130 No Longer Active Carmine Yusuf MD Active JANUVIA 50 MG ORAL TABLET Take one by mouth daily SITAGLIPTIN PHOSPHATE 46100183876 Active Renee Oconnor LPN Active JANUVIA 100 MG ORAL TABLET 1/2 by mouth every day 2011 SITAGLIPTIN PHOSPHATE 49436783224 No Longer Active Bijal Segal RN Acti ve METFORMIN HCL 500 MG ORAL TABLET 2 by mouth twice daily METFORMIN HCL 66120222533 No Longer Active Renee Oconnor LPN Active COLCRYS 0.6 MG ORAL TABLET 1 po q 6 hours prn gout pain COLCHICINE 15986097241 No Longer Active Camila Reese Active LISINOPRIL 5 MG ORAL TABLET 1 by mouth every day 11/17 LISINOPRIL 31033758672 No Longer Active Nguyen Ana Active KLOR-CON 20 MEQ ORAL PACKET Take one by mouth daily 09/10/08 POTASSIUM CHLORIDE 47627583077 No Longer Active Nguyen Ana Active FUROSEMIDE 40 MG ORAL TABLET 1 by mouth daily F UROSEMIDE 04850182349 No Longer Active Nguyen Ana Active PROVIGIL 100 MG ORAL TABLET Take one by mouth daily 08/20/04 MODAFINIL 78526916143 No Longer Active Mitch Urbina DO Active BACTRIM DS 800-160 MG ORAL TABLET 1 tab by mouth twice daily 201 10/19/09 TRIMETHOPRIM-SULFAMETHOXAZOLE 17065658444 No Longer Active Elian Hays MD Active ADULT ASPIRIN LOW STRENGTH 81 MG ORAL TABLET DISINTEGR ATING 1 by mouth every daily ASPIRIN 84627103994 Active Mitch Urbina DO Ac tive METOPROLOL TARTRATE 50 MG ORAL TABLET 1 by mouth twice daily METOPROLOL TARTRATE 82355061551 Active Maria Rivas RN Ac tive BACTRIM DS 800-160 MG ORAL TABLET 1 tab by mouth twice daily 201 10/19/09 BACTRIM DS 800-160 MG ORAL TABLET 079410 TRIMETHOPRIM-SULFAMETHOXAZOLE Inactive PROVIGIL 100 MG ORAL TABLET Take one by mouth daily 08/20/04 PROVIGIL 100 MG ORAL TABLET 987439 MODAFINIL Inactive FUROSEMIDE 40 MG ORAL TABLET 1 by mouth daily FUROSEMIDE 40 MG ORAL TABLET 394151 FUROSEMIDE Inactive KLOR-CON 20 MEQ ORAL PACKET Take one by mouth daily 09/10/08 KLOR- CON 20 MEQ ORAL PACKET 9863787 POTASSIUM CHLORIDE Inactive LISINOPRIL 5 MG ORAL TABLET 1 by mouth every day 11/17 LISINOPRIL 5 MG ORAL TABLET 190887 LISINOPRIL Inactive COLCRYS 0.6 MG ORAL TABLET 1 po q 6 hours prn gout pain COLCRYS 0.6 MG ORAL TABLET 832785 COLCHICINE Inactive JANUVIA 100 MG ORAL TABLET 1/2 by mouth every day 2011 JANUVIA 100 MG ORAL TABLET SITAGLIPTIN PHOSPHATE Inactive SIMVASTATIN 20 MG ORAL TABLET 1 tab daily at bedtime 2 SIMVASTATIN 20 MG ORAL TABLET 277664 SIMVASTATIN Inactive COUMADIN 6 MG ORAL TABLET 1 by mouth every other day 2 COUMADIN 6 MG ORAL TABLET 457106 WARFARIN SODIUM Inactive COUMADIN 5 MG ORAL TABLET 1 by mouth every other day 2 COUMADIN 5 MG ORAL TABLET 726036 WARFARIN SODIUM Inactive LISINOPRIL 20 MG ORAL TABLET 1 tab po at HS LISINOPRIL 20 MG ORAL TABLET 655266 LISINOPRIL Inactive LISINOPRIL-HYDROCHLOROTHIAZIDE 20-12.5 MG ORAL TABLET 1 tab by m outh daily LISINOPRIL-HYDROCHLOROTHIAZIDE 20-12.5 MG ORAL TABLET 275923 LISINOPRIL-HYDROCHLOROTHIAZIDE Inactive POLYTRIM 22703-0.1 UNIT/ML-% OPHTHALMIC SOLUTION 1 rui p in affected eye every 3 hours while awake x 7 days POLYTRIM 1000 0-0.1 UNIT/ML-% OPHTHALMIC SOLUTION 344963 POLYMYXIN B-TRIMETHOPRIM Inactive COUMADIN 4 MG ORAL TABLET 1 tablet daily COUMADIN 4 MG ORAL TABLET 713110 WARFARIN SODIUM Inactive CLONIDINE HCL 0.1 MG ORAL TABLET 1 po bid 7 days, then 1/2 t ab po bid 7 days CLONIDINE HCL 0.1 MG ORAL TABLET 756446 CLONIDIN E HCL Inactive ALLOPURINOL 300 MG ORAL TABLET Take 1 tablet by mouth daily 2012 ALLOPURINOL 300 MG ORAL TABLET 339251 ALLOPURINOL I nactive MECLIZINE HCL 25 MG ORAL TABLET 1 po tid 3 days, then 1/2 ta b tid 3 days MECLIZINE HCL 25 MG ORAL TABLET 488586 MECLIZINE HCL Inactive AMLODIPINE BESYLATE 5 MG ORAL TABLET 1 tablet by mouth daily 201 01/20/04 AMLODIPINE BESYLATE 5 MG ORAL TABLET 752358 AMLODIPINE BESYLATE Inactive KEFLEX 500 MG ORAL CAPSULE 1 po qid K EFLEX 500 MG ORAL CAPSULE 022208 CEPHALEXIN Inactive COLCRYS 0.6 MG ORAL TABLET 1 tab qid prn gout COLCRYS 0.6 MG ORAL TABLET 583209 COLCHICINE Inactive FAMOTIDINE 20 MG ORAL TABLET by mouth twice a day 2017 FAMOTIDINE 20 MG ORAL TABLET 027334 FAMOTIDINE Inactive GLIMEPIRIDE 2 MG ORAL TABLET 1 po BID GLIMEPIRIDE 2 MG ORAL TABLET 455017 GLIMEPIRIDE Inactive LOVENOX 100 MG/ML SUBCUTANEOUS SOLUTION One injection twice a da y LOVENOX 100 MG/ML SUBCUTANEOUS SOLUTION 471683 ENOXAPAR IN SODIUM Inactive PREDNISONE 20 MG ORAL TABLET 2 tabs daily for 3 days 1 tab d aily for 3 days PREDNISONE 20 MG ORAL TABLET 998999 PREDNISONE Inactive Advance Directives Directive Description Start [...] mg/dL Encounters Code Encounter Date Provider Facility CPT-28013 Level 3 Est. Patient 15:18:36 CDT Becky Se anderson [facility] CPT-71725 [id number] Vst-Est Level IV 10:06:35 CDT Stephy [facility] CPT-15780 [id number] Vst-Est Level IV 10:52:00 PROTOTYPE MACHINE OPERATOR Stephy [facility] CPT-31138 Level 3 Est. Patient 18:25:53 CDT Mitch luis [facility] CPT-59969 Level 3 Est. Patient 19:43:34 CDT Mitch luis [facility] CPT-84417 Level 4 Est. Patient 09:30:18 CDT Mitch luis [facility] CPT-72594 Level 3 Est. Patient 15:10:14 CDT Joe kamara [facility] CPT-83600 Level 3 Est. Patient 15:03:46 CDT Joe kamara [facility] CPT-65598 Level 3 Est. Patient 14:21:06 CDT Mitch luis [facility] CPT-72289 Level 3 Est. Patient 14:52:06 CDT Joe kamara [facility] CPT-67503 Level 3 Est. Patient 09:34:30 PROTOTYPE MACHINE OPERATOR Mitch luis [facility] CPT-47416 Level 3 Est. Patient 09:37:15 CDT Mitch luis [facility] CPT-59812 Level 3 Est. Patient 17:01:00 PROTOTYPE MACHINE OPERATOR Mitch luis [facility] CPT-94949 Level 3 Est. Patient 13:53:19 PROTOTYPE MACHINE OPERATOR Mitch luis [facility] CPT-36624 Level 3 Est. Patient 19:19:37 PROTOTYPE MACHINE OPERATOR Mitch luis [facility] CPT-05666 Level 3 Est. Patient 13:25:53 PROTOTYPE MACHINE OPERATOR Tavo toure MD [facility] CPT-37153 Level 3 Est. Patient 18:17:28 CDT Mitch luis [facility] CPT-67317 Level 3 Est. Patient 15:22:57 CDT Mitch luis [facility] CPT-52368 Level 3 Est. Patient 18:21:50 CDT Mitch luis [facility] CPT-28542 Level 3 Est. Patient 18:20:38 CDT Mitch luis [facility] CPT-33132 Level 3 Est. Patient 15:37:55 CDT Mitch luis [facility] CPT-59593 Level 2 Est. Patient 15:54:44 CDT Carmine benton MD [facility]-11089 Level 3 Est. Patient 21:46:01 PROTOTYPE MACHINE OPERATOR Mitch luis [facility] CPT-45653 Level 3 Est. Patient 22:15:50 CDT Mitch luis [facility] CPT-61738 Level 3 Est. Patient 10:48:15 CDT Mitch luis [facility] CPT-68331 Level 3 Est. Patient 23:20:57 CDT Tavo toure MD [facility] CPT-55191 Level 3 Est. Patient 16:26:13 CDT Mitch luis [facility] Procedures Code Procedure Name Date Entry Date Standard Desc ription CPT-63205 Venipuncture Draw Fee 17:20:50 CDT CPT-73942 Venipuncture Draw Fee 18:00:48 CDT CPT-22024 Venipuncture Draw Fee 14:56:20 CDT CPT-JTINJ Asp/Joint Injection 18:47:02 CDT CPT-03833 Venipuncture Draw Fee 09:26:17 CDT CPT-41509 PT/INR - LAB USE ONLY 13:32:49 PROTOTYPE MACHINE OPERATOR CPT-71709 Venipuncture Draw Fee 13:32:49 PROTOTYPE MACHINE OPERATOR CPT-87657 PT/INR - LAB USE ONLY 10:34:49 PROTOTYPE MACHINE OPERATOR CPT-79580 Venipuncture Draw Fee 10:34:48 PROTOTYPE MACHINE OPERATOR CPT-05618 PT/INR - LAB USE ONLY 09:22:03 PROTOTYPE MACHINE OPERATOR CPT-54026 Venipuncture Draw Fee 09:22:02 PROTOTYPE MACHINE OPERATOR CPT-17563 Hemoccult IFOBT - LAB USE ONLY 10:27:22 CDT CPT-26530 Venipuncture Draw Fee 08:27:08 CDT CPT-32425 Liver Profile - LAB USE ONLY 08:27:07 CDT 2 CPT-03827 Microalbumin - LAB USE ONLY 08:27:07 CDT 20 25/05/09 CPT-91856 PT/INR - LAB USE ONLY 08:27:07 CDT CPT-57189 HGBA1C - LAB USE ONLY 08:27:07 CDT CPT-97329 CBC - LAB USE ONLY 08:27:07 CDT CPT-62199 Venipuncture Draw Fee 11:09:14 CDT CPT-94407 Venipuncture Draw Fee 08:32:21 PROTOTYPE MACHINE OPERATOR CPT-56222 Venipuncture Draw Fee 09:38:56 PROTOTYPE MACHINE OPERATOR CPT-77261 No Charge Offi Visit 21:36:07 CDT 1 CPT-05501 Venipuncture Draw Fee 10:13:28 PROTOTYPE MACHINE OPERATOR CPT-85018 Venipuncture Draw Fee 08:31:11 CDT CPT-35029 Aspir/Inject Med Joint 18:17:28 CDT CPT-32250 Venipuncture Draw Fee 10:13:30 CDT CPT-40579 Venipuncture Draw Fee 08:31:43 PROTOTYPE MACHINE OPERATOR CPT-JTINJ Joint Injection 18:34:50 CDT CPT-91982 Knee 3V 12:25:09 CDT CPT-56863 Venipuncture Draw Fee 12:15:57 CDT CPT-060 Medical Surveillance Exam 21:31:43 CDT 2011 CPT-61391 Venipuncture Draw Fee 08:32:05 PROTOTYPE MACHINE OPERATOR CPT-OV Office Visit 18:19:06 CDT
--- OUTSIDE RECORDS SUMMARY | 2020-01-18 13:39 | XMS REPORT | Clinical Summary ---
Author Author Admin, Mitch Leon Organization [facility] [employer] Address Unknown Phone Unavailable Allergies, Adverse [...] week, then once daily FLUTICASONE AL OPIONATE 83132133849 Active Becky Sell [employer] Active PREDNISONE 20 MG ORAL TABLET 2 tabs daily for 3 days 1 tab d aily for 3 days PREDNISONE 76647476610 No Longer Active Becky Sell [employer] Active MINOXIDIL 2.5 MG ORAL TABLET 1 tablet twice daily for high b lood pressure MINOXIDIL 08264745056 Active Mitch Urbina DO Ac tive METFORMIN HCL ER 500 MG ORAL TABLET EXTENDED RELEASE 2 4 HOUR 2 tablets by mouth twice daily METFORMIN HCL 21266281196 Active Mitch Urbina DO Active GLIMEPIRIDE 4 MG ORAL TABLET 1 tablet by mouth twice daily f or diabetes GLIMEPIRIDE 89646554370 Active Mitch Urbina DO Active GLIMEPIRIDE 2 MG ORAL TABLET 1 po BID GLIMEPI RIDE 59545314516 No Longer Active Mitch Urbina DO Active AMLODIPINE BESYLATE 5 MG ORAL TABLET 1 tablet by mouth daily AMLODIPINE BESYLATE 56793091017 Active Mitch Urbina DO Active PROVIGIL 200 MG ORAL TABLET 1/2 tab po q day MODA FINIL 66714499083 Active Renee Oconnor LPN Active FAMOTIDINE 20 MG ORAL TABLET by mouth twice a day 2017 FAMOTIDINE 10634350497 No Longer Active Mitch Urbina DO Active COLCRYS 0.6 MG ORAL TABLET 1 tab qid prn gout C OLCHICINE 87539541586 No Longer Active Mitch Urbina DO Active KEFLEX 500 MG ORAL CAPSULE 1 po qid CEPHALEXI N 69698780429 No Longer Active Mitch Urbina DO Active LOSARTAN POTASSIUM 100 MG ORAL TABLET 1 pill by mouth daily, for blood pressure LOSARTAN POTASSIUM 76155665336 Active Mitch Arnol Carlitos VELASQUEZ Active AMLODIPINE BESYLATE 5 MG ORAL TABLET 1 tablet by mouth daily 201 01/20/04 AMLODIPINE BESYLATE 86207031121 No Longer Active Joe fulton APRN Active MITIGARE 0.6 MG ORAL CAPSULE 2 capsules at onset of go ut pain, then take one capsule at 1 hour if symptoms persist. COLCHICINE 59 894982937 Active Mitch Urbina DO Active COUMADIN 1 MG ORAL TABLET 2 tabs orally daily with the 5mg tab to equal 7mg daily WARFARIN SODIUM 75674105999 Active Renee Oconnor LPN Active INVOKANA 100 MG ORAL TABLET 1 tablet orally daily CANAGLIFLOZIN 11698223622 Active Mitch Urbina DO Active MECLIZINE HCL 25 MG ORAL TABLET 1 po tid 3 days, then 1/2 ta b tid 3 days MECLIZINE HCL 26515173872 No Longer Active Corey SEGURA Active ALLOPURINOL 300 MG ORAL TABLET Take 1 tablet by mouth daily 2012 ALLOPURINOL 61432342450 No Longer Active Corey SEGURA Active CLONIDINE HCL 0.1 MG ORAL TABLET 1 po bid 7 days, then 1/2 t ab po bid 7 days CLONIDINE HCL 52776531886 No Longer Active Corey SEGURA Active COUMADIN 5 MG ORAL TABLET 1 tab PO daily WARFAR IN SODIUM 25821456588 Active Renee Oconnor LPN Active COUMADIN 4 MG ORAL TABLET 1 tablet daily WARFAR IN SODIUM 85947204198 No Longer Active Corey SEGURA Active POLYTRIM 44461-5.1 UNIT/ML-% OPHTHALMIC SOLUTION 1 rui p in affected eye every 3 hours while awake x 7 days POLYMYXIN B-TRIMETHOP RIM 44265017093 No Longer Active Corey SEGURA Active LOSARTAN POTASSIUM-HCTZ 100-12.5 MG ORAL TABLET 1 by m outh daily for high blood pressure LOSARTAN POTASSIUM-HCTZ 43288237557 No Longer A ctive Mitch Urbina DO Active LISINOPRIL-HYDROCHLOROTHIAZIDE 20-12.5 MG ORAL TABLET 1 tab by m outh daily LISINOPRIL-HYDROCHLOROTHIAZIDE 45227237941 No Longer Active Mitch Urbina DO Active LISINOPRIL 20 MG ORAL TABLET 1 tab po at HS LIS INOPRIL 85992916475 No Longer Active Mitch Urbina DO Active COUMADIN 5 MG ORAL TABLET 1 by mouth every other day 2 WARFARIN SODIUM 92745924994 No Longer Active Mitch Urbina DO Active COUMADIN 6 MG ORAL TABLET 1 by mouth every other day 2 WARFARIN SODIUM 56704495933 No Longer Active Mitch Urbina DO Active SIMVASTATIN 40 MG ORAL TABLET 1 tab daily at bedtime SIMVASTATIN 39308021159 Active Maria Rivas RN Active SIMVASTATIN 20 MG ORAL TABLET 1 tab daily at bedtime 2 SIMVASTATIN 32549842768 No Longer Active Mitch Urbina DO Active LOVENOX 100 MG/ML SUBCUTANEOUS SOLUTION One injection twice a da y ENOXAPARIN SODIUM 65885576117 No Longer Active Carmine Yusuf MD Active JANUVIA 50 MG ORAL TABLET Take one by mouth daily SITAGLIPTIN PHOSPHATE 47961709235 Active Renee Oconnor LPN Active JANUVIA 100 MG ORAL TABLET 1/2 by mouth every day 2011 SITAGLIPTIN PHOSPHATE 74865562505 No Longer Active Bijal Segal RN Acti ve METFORMIN HCL 500 MG ORAL TABLET 2 by mouth twice daily METFORMIN HCL 30645534982 No Longer Active Renee Oconnor LPN Active COLCRYS 0.6 MG ORAL TABLET 1 po q 6 hours prn gout pain COLCHICINE 09672477352 No Longer Active Camila Reese Active LISINOPRIL 5 MG ORAL TABLET 1 by mouth every day 11/17 LISINOPRIL 26241407290 No Longer Active Nguyen Ana Active KLOR-CON 20 MEQ ORAL PACKET Take one by mouth daily 09/10/08 POTASSIUM CHLORIDE 22063944558 No Longer Active Nguyen Ana Active FUROSEMIDE 40 MG ORAL TABLET 1 by mouth daily F UROSEMIDE 49430116617 No Longer Active Nguyen Ana Active PROVIGIL 100 MG ORAL TABLET Take one by mouth daily 08/20/04 MODAFINIL 97307777587 No Longer Active Mitch Urbina DO Active BACTRIM DS 800-160 MG ORAL TABLET 1 tab by mouth twice daily 201 10/19/09 TRIMETHOPRIM-SULFAMETHOXAZOLE 64193904011 No Longer Active Elian Hasy MD Active ADULT ASPIRIN LOW STRENGTH 81 MG ORAL TABLET DISINTEGR ATING 1 by mouth every daily ASPIRIN 56924761501 Active Mitch Urbina DO Ac tive METOPROLOL TARTRATE 50 MG ORAL TABLET 1 by mouth twice daily METOPROLOL TARTRATE 41666936052 Active Maria Rivas RN Ac tive BACTRIM DS 800-160 MG ORAL TABLET 1 tab by mouth twice daily 201 10/19/09 BACTRIM DS 800-160 MG ORAL TABLET 737445 TRIMETHOPRIM-SULFAMETHOXAZOLE Inactive PROVIGIL 100 MG ORAL TABLET Take one by mouth daily 08/20/04 PROVIGIL 100 MG ORAL TABLET 996258 MODAFINIL Inactive FUROSEMIDE 40 MG ORAL TABLET 1 by mouth daily FUROSEMIDE 40 MG ORAL TABLET 392418 FUROSEMIDE Inactive KLOR-CON 20 MEQ ORAL PACKET Take one by mouth daily 09/10/08 KLOR- CON 20 MEQ ORAL PACKET 2493641 POTASSIUM CHLORIDE Inactive LISINOPRIL 5 MG ORAL TABLET 1 by mouth every day 11/17 LISINOPRIL 5 MG ORAL TABLET 690886 LISINOPRIL Inactive COLCRYS 0.6 MG ORAL TABLET 1 po q 6 hours prn gout pain COLCRYS 0.6 MG ORAL TABLET 513134 COLCHICINE Inactive JANUVIA 100 MG ORAL TABLET 1/2 by mouth every day 2011 JANUVIA 100 MG ORAL TABLET SITAGLIPTIN PHOSPHATE Inactive SIMVASTATIN 20 MG ORAL TABLET 1 tab daily at bedtime 2 SIMVASTATIN 20 MG ORAL TABLET 849824 SIMVASTATIN Inactive COUMADIN 6 MG ORAL TABLET 1 by mouth every other day 2 COUMADIN 6 MG ORAL TABLET 654547 WARFARIN SODIUM Inactive COUMADIN 5 MG ORAL TABLET 1 by mouth every other day 2 COUMADIN 5 MG ORAL TABLET 964875 WARFARIN SODIUM Inactive LISINOPRIL 20 MG ORAL TABLET 1 tab po at HS LISINOPRIL 20 MG ORAL TABLET 108786 LISINOPRIL Inactive LISINOPRIL-HYDROCHLOROTHIAZIDE 20-12.5 MG ORAL TABLET 1 tab by m outh daily LISINOPRIL-HYDROCHLOROTHIAZIDE 20-12.5 MG ORAL TABLET 789872 LISINOPRIL-HYDROCHLOROTHIAZIDE Inactive POLYTRIM 29582-7.1 UNIT/ML-% OPHTHALMIC SOLUTION 1 rui p in affected eye every 3 hours while awake x 7 days POLYTRIM 1000 0-0.1 UNIT/ML-% OPHTHALMIC SOLUTION 811125 POLYMYXIN B-TRIMETHOPRIM Inactive COUMADIN 4 MG ORAL TABLET 1 tablet daily COUMADIN 4 MG ORAL TABLET 538196 WARFARIN SODIUM Inactive CLONIDINE HCL 0.1 MG ORAL TABLET 1 po bid 7 days, then 1/2 t ab po bid 7 days CLONIDINE HCL 0.1 MG ORAL TABLET 156299 CLONIDIN E HCL Inactive ALLOPURINOL 300 MG ORAL TABLET Take 1 tablet by mouth daily 2012 ALLOPURINOL 300 MG ORAL TABLET 231933 ALLOPURINOL I nactive MECLIZINE HCL 25 MG ORAL TABLET 1 po tid 3 days, then 1/2 ta b tid 3 days MECLIZINE HCL 25 MG ORAL TABLET 885425 MECLIZINE HCL Inactive AMLODIPINE BESYLATE 5 MG ORAL TABLET 1 tablet by mouth daily 201 01/20/04 AMLODIPINE BESYLATE 5 MG ORAL TABLET 741599 AMLODIPINE BESYLATE Inactive KEFLEX 500 MG ORAL CAPSULE 1 po qid K EFLEX 500 MG ORAL CAPSULE 632940 CEPHALEXIN Inactive COLCRYS 0.6 MG ORAL TABLET 1 tab qid prn gout COLCRYS 0.6 MG ORAL TABLET 391937 COLCHICINE Inactive FAMOTIDINE 20 MG ORAL TABLET by mouth twice a day 2017 FAMOTIDINE 20 MG ORAL TABLET 150090 FAMOTIDINE Inactive GLIMEPIRIDE 2 MG ORAL TABLET 1 po BID GLIMEPIRIDE 2 MG ORAL TABLET 328197 GLIMEPIRIDE Inactive LOVENOX 100 MG/ML SUBCUTANEOUS SOLUTION One injection twice a da y LOVENOX 100 MG/ML SUBCUTANEOUS SOLUTION 608526 ENOXAPAR IN SODIUM Inactive PREDNISONE 20 MG ORAL TABLET 2 tabs daily for 3 days 1 tab d aily for 3 days PREDNISONE 20 MG ORAL TABLET 648256 PREDNISONE Inactive Advance Directives Directive Description Start [...] mg/dL Encounters Code Encounter Date Provider Facility CPT-01646 Level 3 Est. Patient 15:18:36 CDT Becky anderson [facility] CPT-50891 [id number] Vst-Est Level IV 10:06:35 CDT Stephy Ambrose [facility] CPT-65854 [id number] Vst-Est Level IV 10:52:00 GAME DESIGNER/CREATIVE DIRECTOR Stephy Ambrose [facility] CPT-52189 Level 3 Est. Patient 18:25:53 CDT Mitch luis [facility] CPT-69508 Level 3 Est. Patient 19:43:34 CDT Mitch luis [facility] CPT-77429 Level 4 Est. Patient 09:30:18 CDT Mitch luis [facility] CPT-33220 Level 3 Est. Patient 15:10:14 CDT Joe kamara [facility] CPT-75015 Level 3 Est. Patient 15:03:46 CDT Joe kamara [facility] CPT-48229 Level 3 Est. Patient 14:21:06 CDT Mitch luis [facility] CPT-50716 Level 3 Est. Patient 14:52:06 CDT Joe kamara [facility] CPT-35474 Level 3 Est. Patient 09:34:30 GAME DESIGNER/CREATIVE DIRECTOR Mitch luis [facility] CPT-56033 Level 3 Est. Patient 09:37:15 CDT Mitch luis [facility] CPT-41332 Level 3 Est. Patient 17:01:00 GAME DESIGNER/CREATIVE DIRECTOR Mitch luis [facility] CPT-90796 Level 3 Est. Patient 13:53:19 GAME DESIGNER/CREATIVE DIRECTOR Mitch luis [facility] CPT-97645 Level 3 Est. Patient 19:19:37 GAME DESIGNER/CREATIVE DIRECTOR Mitch luis [facility] CPT-88030 Level 3 Est. Patient 13:25:53 GAME DESIGNER/CREATIVE DIRECTOR Tavo toure MD [facility] CPT-65591 Level 3 Est. Patient 18:17:28 CDT Mitch luis [facility] CPT-92875 Level 3 Est. Patient 15:22:57 CDT Mitch luis [facility] CPT-09924 Level 3 Est. Patient 18:21:50 CDT Mitch luis [facility] CPT-65976 Level 3 Est. Patient 18:20:38 CDT Mitch luis [facility] CPT-15860 Level 3 Est. Patient 15:37:55 CDT Mitch luis [facility] CPT-69170 Level 2 Est. Patient 15:54:44 CDT Carmine benton MD [facility]-01655 Level 3 Est. Patient 21:46:01 GAME DESIGNER/CREATIVE DIRECTOR Mitch luis [facility] CPT-33877 Level 3 Est. Patient 22:15:50 CDT Mitch luis [facility] CPT-54308 Level 3 Est. Patient 10:48:15 CDT Mitch luis [facility] CPT-35353 Level 3 Est. Patient 23:20:57 CDT Tavo toure MD [facility] CPT-87549 Level 3 Est. Patient 16:26:13 CDT Mitch luis [facility] Procedures Code Procedure Name Date Entry Date Standard Desc ription CPT-65381 Venipuncture Draw Fee 17:20:50 CDT CPT-28716 Venipuncture Draw Fee 18:00:48 CDT CPT-15165 Venipuncture Draw Fee 14:56:20 CDT CPT-JTINJ Asp/Joint Injection 18:47:02 CDT CPT-20375 Venipuncture Draw Fee 09:26:17 CDT CPT-57026 PT/INR - LAB USE ONLY 13:32:49 GAME DESIGNER/CREATIVE DIRECTOR CPT-04915 Venipuncture Draw Fee 13:32:49 GAME DESIGNER/CREATIVE DIRECTOR CPT-89825 PT/INR - LAB USE ONLY 10:34:49 GAME DESIGNER/CREATIVE DIRECTOR CPT-85740 Venipuncture Draw Fee 10:34:48 GAME DESIGNER/CREATIVE DIRECTOR CPT-33885 PT/INR - LAB USE ONLY 09:22:03 GAME DESIGNER/CREATIVE DIRECTOR CPT-66161 Venipuncture Draw Fee 09:22:02 GAME DESIGNER/CREATIVE DIRECTOR CPT-64083 Hemoccult IFOBT - LAB USE ONLY 10:27:22 CDT CPT-87901 Venipuncture Draw Fee 08:27:08 CDT CPT-07302 Liver Profile - LAB USE ONLY 08:27:07 CDT 2 CPT-46436 Microalbumin - LAB USE ONLY 08:27:07 CDT 20 25/05/09 CPT-50622 PT/INR - LAB USE ONLY 08:27:07 CDT CPT-11975 HGBA1C - LAB USE ONLY 08:27:07 CDT CPT-38455 CBC - LAB USE ONLY 08:27:07 CDT CPT-84556 Venipuncture Draw Fee 11:09:14 CDT CPT-55379 Venipuncture Draw Fee 08:32:21 GAME DESIGNER/CREATIVE DIRECTOR CPT-84110 Venipuncture Draw Fee 09:38:56 GAME DESIGNER/CREATIVE DIRECTOR CPT-44769 No Charge Offi Visit 21:36:07 CDT 1 CPT-53086 Venipuncture Draw Fee 10:13:28 GAME DESIGNER/CREATIVE DIRECTOR CPT-31977 Venipuncture Draw Fee 08:31:11 CDT CPT-32141 Aspir/Inject Med Joint 18:17:28 CDT CPT-11166 Venipuncture Draw Fee 10:13:30 CDT CPT-13055 Venipuncture Draw Fee 08:31:43 GAME DESIGNER/CREATIVE DIRECTOR CPT-JTINJ Joint Injection 18:34:50 CDT CPT-24008 Knee 3V 12:25:09 CDT CPT-97952 Venipuncture Draw Fee 12:15:57 CDT CPT-060 Medical Surveillance Exam 21:31:43 CDT 2011 CPT-28515 Venipuncture Draw Fee 08:32:05 GAME DESIGNER/CREATIVE DIRECTOR CPT-OV Office Visit 18:19:06 CDT
--- OUTSIDE RECORDS SUMMARY | 2020-01-18 13:39 | XMS REPORT | Clinical Summary ---
Author Author Admin, Mitch Leon Organization [facility] Address Unknown Phone Unavailable Allergies, Adverse Reactions, [...] Coronary atherosclerosis of unspecified type of vessel, minto or graft EDEMA 782.3 Resolved Mitch Urbina [...] Instructions Start Date Stop Date Generic Name [facility] Status Provider Patient Instruction GLIMEPIRIDE 4 MG ORAL TABLET 1 tablet by mouth twice daily f or diabetes GLIMEPIRIDE 77620725146 Active Mitch Ambrose Carlitos VELASQUEZ Active GLIMEPIRIDE 2 MG ORAL TABLET 1 po BID GLIMEPI RIDE 31946175952 No Longer Active Mitch Urbina DO Active AMLODIPINE BESYLATE 5 MG ORAL TABLET 1 tablet by mouth daily AMLODIPINE BESYLATE 09727118293 Active Mitch Urbina DO Active PROVIGIL 200 MG ORAL TABLET 1/2 tab po q day MODA FINIL 54170898139 Active Renee Oconnor LPN Active FAMOTIDINE 20 MG ORAL TABLET by mouth twice a day 2017 FAMOTIDINE 75276529739 No Longer Active Mitch Urbina DO Active COLCRYS 0.6 MG ORAL TABLET 1 tab qid prn gout C OLCHICINE 69018576781 No Longer Active Mitch Urbina DO Active KEFLEX 500 MG ORAL CAPSULE 1 po qid CEPHALEXI N 79617588554 No Longer Active Mitch Urbina DO Active LOSARTAN POTASSIUM 100 MG ORAL TABLET 1 pill by mouth daily, for blood pressure LOSARTAN POTASSIUM 77716043568 Active Renee Oconnor LPN Active AMLODIPINE BESYLATE 5 MG ORAL TABLET 1 tablet by mouth daily 201 01/20/04 AMLODIPINE BESYLATE 58093465460 No Longer Active Joe fulton [facility] Active MITIGARE 0.6 MG ORAL CAPSULE 2 capsules at onset of go ut pain, then take one capsule at 1 hour if symptoms persist. COLCHICINE 59 967197863 Active Mitch Urbina DO Active COUMADIN 1 MG ORAL TABLET 2 tabs orally daily with the 5mg tab to equal 7mg daily WARFARIN SODIUM 58078744974 Active Mitch Urbina DO Active INVOKANA 100 MG ORAL TABLET 1 tablet orally daily CANAGLIFLOZIN 32540148564 Active Curly Coker MD Active MINOXIDIL 2.5 MG ORAL TABLET 1 tablet daily for high blood press ure MINOXIDIL 33462244013 Active Renee Oconnor LPN Active MECLIZINE HCL 25 MG ORAL TABLET 1 po tid 3 days, then 1/2 ta b tid 3 days MECLIZINE HCL 28159236800 No Longer Active Croey SEGURA Active ALLOPURINOL 300 MG ORAL TABLET Take 1 tablet by mouth daily 2012 ALLOPURINOL 34289837450 No Longer Active Corey SEGURA Active CLONIDINE HCL 0.1 MG ORAL TABLET 1 po bid 7 days, then 1/2 t ab po bid 7 days CLONIDINE HCL 13794682108 No Longer Active Corey SEGURA Active COUMADIN 5 MG ORAL TABLET 1 tab PO daily WARFAR IN SODIUM 29157256537 Active Mitch Urbina DO Active COUMADIN 4 MG ORAL TABLET 1 tablet daily WARFAR IN SODIUM 22001470781 No Longer Active Corey SEGURA Active POLYTRIM 71889-8.1 UNIT/ML-% OPHTHALMIC SOLUTION 1 rui p in affected eye every 3 hours while awake x 7 days POLYMYXIN B-TRIMETHOP RIM 95477856794 No Longer Active Corey SEGURA Active LOSARTAN POTASSIUM-HCTZ 100-12.5 MG ORAL TABLET 1 by m outh daily for high blood pressure LOSARTAN POTASSIUM-HCTZ 93267783520 No Longer A ctive Mitch Urbina DO Active LISINOPRIL-HYDROCHLOROTHIAZIDE 20-12.5 MG ORAL TABLET 1 tab by m outh daily LISINOPRIL-HYDROCHLOROTHIAZIDE 86004486861 No Longer Active Mitch Urbina DO Active LISINOPRIL 20 MG ORAL TABLET 1 tab po at HS LIS INOPRIL 26341796068 No Longer Active Mitch Urbina DO Active COUMADIN 5 MG ORAL TABLET 1 by mouth every other day 2 WARFARIN SODIUM 02414089835 No Longer Active Mitch Urbina DO Active COUMADIN 6 MG ORAL TABLET 1 by mouth every other day 2 WARFARIN SODIUM 32304067422 No Longer Active Mitch Urbina DO Active SIMVASTATIN 40 MG ORAL TABLET 1 tab daily at bedtime SIMVASTATIN 64953756057 Active Renee Oconnor LPN Active SIMVASTATIN 20 MG ORAL TABLET 1 tab daily at bedtime 2 SIMVASTATIN 57353934320 No Longer Active Mitch Urbina DO Active LOVENOX 100 MG/ML SUBCUTANEOUS SOLUTION One injection twice a da y ENOXAPARIN SODIUM 43068882339 No Longer Active Carmine Yusuf MD Active JANUVIA 50 MG ORAL TABLET Take one by mouth daily SITAGLIPTIN PHOSPHATE 43312732546 Active Mitch Urbina DO Active JANUVIA 100 MG ORAL TABLET 1/2 by mouth every day 2011 SITAGLIPTIN PHOSPHATE 74593621572 No Longer Active Bijal Segal RN Acti ve METFORMIN HCL 500 MG ORAL TABLET 2 by mouth twice daily METFORMIN HCL 94847342274 No Longer Active Renee Oconnor LPN Active COLCRYS 0.6 MG ORAL TABLET 1 po q 6 hours prn gout pain COLCHICINE 74216857340 No Longer Active Camila Reese Active LISINOPRIL 5 MG ORAL TABLET 1 by mouth every day 11/17 LISINOPRIL 41237053409 No Longer Active Nguyen Perez Active KLOR-CON 20 MEQ ORAL PACKET Take one by mouth daily 20 09/10/08 POTASSIUM CHLORIDE 88459808159 No Longer Active Nguyen Perez Active FUROSEMIDE 40 MG ORAL TABLET 1 by mouth daily F UROSEMIDE 95598041458 No Longer Active Nguyen Perez Active PROVIGIL 100 MG ORAL TABLET Take one by mouth daily 08/20/04 MODAFINIL 23639228956 No Longer Active Mitch Urbina DO Active BACTRIM DS 800-160 MG ORAL TABLET 1 tab by mouth twice daily 201 10/19/09 TRIMETHOPRIM-SULFAMETHOXAZOLE 90605323709 No Longer Active Elian Hays MD Active ADULT ASPIRIN LOW STRENGTH 81 MG ORAL TABLET DISINTEGR ATING 1 by mouth every daily ASPIRIN 54846188708 Active Mitch Urbina DO Ac tive METOPROLOL TARTRATE 50 MG ORAL TABLET 1 by mouth twice daily METOPROLOL TARTRATE 08925837969 Active Mitch Urbina DO Active BACTRIM DS 800-160 MG ORAL TABLET 1 tab by mouth twice daily 201 10/19/09 BACTRIM DS 800-160 MG ORAL TABLET 638109 TRIMETHOPRIM-SULFAMETHOXAZOLE Inactive PROVIGIL 100 MG ORAL TABLET Take one by mouth daily 08/20/04 PROVIGIL 100 MG ORAL TABLET 329259 MODAFINIL Inactive FUROSEMIDE 40 MG ORAL TABLET 1 by mouth daily FUROSEMIDE 40 MG ORAL TABLET 981065 FUROSEMIDE Inactive KLOR-CON 20 MEQ ORAL PACKET Take one by mouth daily 09/10/08 KLOR- CON 20 MEQ ORAL PACKET 2138749 POTASSIUM CHLORIDE Inactive LISINOPRIL 5 MG ORAL TABLET 1 by mouth every day 11/17 LISINOPRIL 5 MG ORAL TABLET 864349 LISINOPRIL Inactive COLCRYS 0.6 MG ORAL TABLET 1 po q 6 hours prn gout pain COLCRYS 0.6 MG ORAL TABLET 377467 COLCHICINE Inactive JANUVIA 100 MG ORAL TABLET 1/2 by mouth every day 2011 JANUVIA 100 MG ORAL TABLET SITAGLIPTIN PHOSPHATE Inactive SIMVASTATIN 20 MG ORAL TABLET 1 tab daily at bedtime 2 SIMVASTATIN 20 MG ORAL TABLET 709236 SIMVASTATIN Inactive COUMADIN 6 MG ORAL TABLET 1 by mouth every other day 2 COUMADIN 6 MG ORAL TABLET 402393 WARFARIN SODIUM Inactive COUMADIN 5 MG ORAL TABLET 1 by mouth every other day 2 COUMADIN 5 MG ORAL TABLET 761503 WARFARIN SODIUM Inactive LISINOPRIL 20 MG ORAL TABLET 1 tab po at HS LISINOPRIL 20 MG ORAL TABLET 407388 LISINOPRIL Inactive LISINOPRIL-HYDROCHLOROTHIAZIDE 20-12.5 MG ORAL TABLET 1 tab by m outh daily LISINOPRIL-HYDROCHLOROTHIAZIDE 20-12.5 MG ORAL TABLET 410323 LISINOPRIL-HYDROCHLOROTHIAZIDE Inactive POLYTRIM 03566-9.1 UNIT/ML-% OPHTHALMIC SOLUTION 1 rui p in affected eye every 3 hours while awake x 7 days POLYTRIM 1000 0-0.1 UNIT/ML-% OPHTHALMIC SOLUTION 681295 POLYMYXIN B-TRIMETHOPRIM Inactive COUMADIN 4 MG ORAL TABLET 1 tablet daily COUMADIN 4 MG ORAL TABLET 760429 WARFARIN SODIUM Inactive CLONIDINE HCL 0.1 MG ORAL TABLET 1 po bid 7 days, then 1/2 t ab po bid 7 days CLONIDINE HCL 0.1 MG ORAL TABLET 290471 CLONIDIN E HCL Inactive ALLOPURINOL 300 MG ORAL TABLET Take 1 tablet by mouth daily 2012 ALLOPURINOL 300 MG ORAL TABLET 697758 ALLOPURINOL I nactive MECLIZINE HCL 25 MG ORAL TABLET 1 po tid 3 days, then 1/2 ta b tid 3 days MECLIZINE HCL 25 MG ORAL TABLET 314346 MECLIZINE HCL Inactive AMLODIPINE BESYLATE 5 MG ORAL TABLET 1 tablet by mouth daily 201 01/20/04 AMLODIPINE BESYLATE 5 MG ORAL TABLET 031844 AMLODIPINE BESYLATE Inactive KEFLEX 500 MG ORAL CAPSULE 1 po qid K EFLEX 500 MG ORAL CAPSULE 539617 CEPHALEXIN Inactive COLCRYS 0.6 MG ORAL TABLET 1 tab qid prn gout COLCRYS 0.6 MG ORAL TABLET 293939 COLCHICINE Inactive FAMOTIDINE 20 MG ORAL TABLET by mouth twice a day 2017 FAMOTIDINE 20 MG ORAL TABLET 816647 FAMOTIDINE Inactive GLIMEPIRIDE 2 MG ORAL TABLET 1 po BID GLIMEPIRIDE 2 MG ORAL TABLET 436014 GLIMEPIRIDE Inactive LOVENOX 100 MG/ML SUBCUTANEOUS SOLUTION One injection twice a da y LOVENOX 100 MG/ML SUBCUTANEOUS SOLUTION 830490 ENOXAPAR IN SODIUM Inactive Vital Signs Date [...] HGBA1C - Chemistry cholesterol, serum 136 mg/dL 107-736 3661/12/06 triglyceride, serum, fasting 247 mg/dL 30-200 HDL cholesterol, serum 41 mg/dL 32-60 LDL cholesterol, serum 46 mg/dL 0-130 aspartate aminotransferase (SGOT), serum 22 U/L 15-37 alanine aminotransferase (SGPT), serum 30 U/L 12-78 bilirubin, serum, total 0.80 mg/dL 0.00-1.00 hemoglobin A1C, blood, as % of total hemoglobin 6.4 % 4.3-6.0 Encounters Code Encounter Date Provider Facility CPT-50207 Level 3 Est. Patient 18:25:53 CDT Mitch luis [facility] CPT-57473 Level 3 Est. Patient 19:43:34 CDT Mitch luis [facility] CPT-85131 Level 4 Est. Patient 09:30:18 CDT Mitch luis [facility] CPT-40501 Level 3 Est. Patient 15:10:14 CDT Joe kamara [facility] CPT-35282 Level 3 Est. Patient 15:03:46 CDT Joe kamara [facility] CPT-68319 Level 3 Est. Patient 14:21:06 CDT Mitch Arnol Nona janelle [facility] CPT-34401 Level 3 Est. Patient 14:52:06 CDT Joe kamara [facility] CPT-32842 Level 3 Est. 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 Patient 09:37:15 CDT Mitch luis [facility] CPT-38820 Level 3 Est. 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 Patient 19:19:37 OCEANOGRAPHY PROFESSOR Mitch luis [facility] CPT-22963 Level 3 Est. Patient 13:25:53 OCEANOGRAPHY PROFESSOR Tavo toure MD [facility] CPT-65554 Level 3 Est. Patient 18:17:28 CDT Mitch luis [facility] CPT-95331 Level 3 Est. Patient 15:22:57 CDT Mitch luis [facility] CPT-98248 Level 3 Est. Patient 18:21:50 CDT Mitch luis [facility] CPT-94929 Level 3 Est. Patient 18:20:38 CDT Mitch Arnol luis [facility] CPT-53224 Level 3 Est. Patient 15:37:55 CDT Mitch Arnol luis [facility] CPT-51958 Level 2 Est. Patient 15:54:44 CDT Carmine benton MD [facility] CPT-54504 Level 3 Est. 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 Patient 22:15:50 CDT Mitch luis [facility] CPT-98465 Level 3 Est. Patient 10:48:15 CDT Mitch luis [facility] CPT-85198 Level 3 Est. Patient 23:20:57 CDT Tavo toure MD [facility] CPT-10268 Level 3 Est. Patient 16:26:13 CDT Mitch Castellano janelle [facility] Procedures Code Procedure Name Date Entry Date Standard Desc ription CPT-JTINJ Asp/Joint Injection 18:47:02 CDT CPT-24059 Venipuncture Draw Fee 09:26:17 CDT CPT-70959 PT/INR - LAB USE ONLY 13:32:49 OCEANOGR[employer]HY PROFESSOR CPT-12832 Venipuncture Draw Fee 13:32:49 OCEANOGRAPHY PROFESSOR CPT-58608 PT/INR - LAB USE ONLY 10:34:49 OCEANOGRAPHY PROFESSOR CPT-27444 Venipuncture Draw Fee 10:34:48 OCEANOGRAPHY PROFESSOR CPT-83693 PT/INR - LAB USE ONLY 09:22:03 OCEANOGRAPHY PROFESSOR CPT-25601 Venipuncture Draw Fee 09:22:02 OCEANOGRAPHY PROFESSOR CPT-99987 Hemoccult IFOBT - LAB USE ONLY 10:27:22 CDT CPT-34576 Venipuncture Draw Fee 08:27:08 CDT CPT-49571 Liver Profile - LAB USE ONLY 08:27:07 CDT 2 CPT-25853 Microalbumin - LAB USE ONLY 08:27:07 CDT 20 25/05/09 CPT-27387 PT/INR - LAB USE ONLY 08:27:07 CDT CPT-15926 HGBA1C - LAB USE ONLY 08:27:07 CDT CPT-55443 CBC - LAB USE ONLY 08:27:07 CDT CPT-64687 Venipuncture Draw Fee 11:09:14 CDT CPT-63089 Venipuncture Draw Fee 08:32:21 OCEANOGR[employer]HY PROFESSOR CPT-04299 Venipuncture Draw Fee 09:38:56 OCEANOGRAPHY PROFESSOR CPT-62748 No Charge Offi Visit 21:36:07 CDT 1 CPT-80387 Venipuncture Draw Fee 10:13:28 OCEANOGRAPHY PROFESSOR CPT-94569 Venipuncture Draw Fee 08:31:11 CDT CPT-21488 Aspir/Inject Med Joint 18:17:28 CDT CPT-23569 Venipuncture Draw Fee 10:13:30 CDT CPT-06851 Venipuncture Draw Fee 08:31:43 OCEANOGRAPHY PROFESSOR CPT-JTINJ Joint Injection 18:34:50 CDT CPT-85421 Knee 3V 12:25:09 CDT CPT-48666 Venipuncture Draw Fee 12:15:57 CDT CPT-060 Medical Surveillance Exam 21:31:43 CDT 2011 CPT-52293 Venipuncture Draw Fee 08:32:05 OCEANOGRAPHY PROFESSOR CPT-OV Office Visit 18:19:06 CDT
--- OUTSIDE RECORDS SUMMARY | 2020-01-18 13:40 | XMS REPORT | Clinical Summary ---
[...] Coronary atherosclerosis of unspecified type of vessel, shingle springs or graft EDEMA 782.3 Resolved Mitch Ubrina DO Ed [place] DEGENERATIVE JOINT DISEASE, KNEES, [...] Instructions Start Date Stop Date Generic Name [facility] Status Provider Patient Instruction GLIMEPIRIDE 4 MG ORAL TABLET 1 tablet by mouth twice daily f or diabetes GLIMEPIRIDE 16527979613 Active Mitch Urbina DO Active GLIMEPIRIDE 2 MG ORAL TABLET 1 po BID GLIMEPI RIDE 20498015416 No Longer Active Mitch Urbina DO Active AMLODIPINE BESYLATE 5 MG ORAL TABLET 1 tablet by mouth daily AMLODIPINE BESYLATE 86977927328 Active Mitch Urbina DO Active PROVIGIL 200 MG ORAL TABLET 1/2 tab po q day MODA FINIL 54002504251 Active Renee Oconnor LPN Active FAMOTIDINE 20 MG ORAL TABLET by mouth twice a day 2017 FAMOTIDINE 52039571495 No Longer Active Mitch Urbina DO Active COLCRYS 0.6 MG ORAL TABLET 1 tab qid prn gout C OLCHICINE 23452426189 No Longer Active Mitch Ambrose Carlitos Active KEFLEX 500 MG ORAL CAPSULE 1 po qid CEPHALEXI N 52762695780 No Longer Active Mitch Urbina DO Active LOSARTAN POTASSIUM 100 MG ORAL TABLET 1 pill by mouth daily, for blood pressure LOSARTAN POTASSIUM 35880490735 Active Renee Oconnor LPN Active AMLODIPINE BESYLATE 5 MG ORAL TABLET 1 tablet by mouth daily 201 01/20/04 AMLODIPINE BESYLATE 72306516806 No Longer Active Joe fulton [employer] Active MITIGARE 0.6 MG ORAL CAPSULE 2 capsules at onset of go ut pain, then take one capsule at 1 hour if symptoms persist. COLCHICINE 59 327059310 Active Mitch Urbina DO Active COUMADIN 1 MG ORAL TABLET 2 tabs orally daily with the 5mg tab to equal 7mg daily WARFARIN SODIUM 24139960199 Active Mitch Urbina DO Active INVOKANA 100 MG ORAL TABLET 1 tablet orally daily CANAGLIFLOZIN 85781502999 Active Curly Coker MD Active MINOXIDIL 2.5 MG ORAL TABLET 1 tablet daily for high blood press ure MINOXIDIL 98793362188 Active Renee Oconnor LPN Active MECLIZINE HCL 25 MG ORAL TABLET 1 po tid 3 days, then 1/2 ta b tid 3 days MECLIZINE HCL 30245276108 No Longer Active Corey SEGURA Active ALLOPURINOL 300 MG ORAL TABLET Take 1 tablet by mouth daily 2012 ALLOPURINOL 07891868254 No Longer Active Corey SEGURA Active CLONIDINE HCL 0.1 MG ORAL TABLET 1 po bid 7 days, then 1/2 t ab po bid 7 days CLONIDINE HCL 66554582596 No Longer Active Corey SEGURA Active COUMADIN 5 MG ORAL TABLET 1 tab PO daily WARFAR IN SODIUM 94230278846 Active Mitch Urbina DO Active COUMADIN 4 MG ORAL TABLET 1 tablet daily WARFAR IN SODIUM 79666347365 No Longer Active Corey SEGURA Active POLYTRIM 21960-0.1 UNIT/ML-% OPHTHALMIC SOLUTION 1 rui p in affected eye every 3 hours while awake x 7 days POLYMYXIN B-TRIMETHOP RIM 05053435154 No Longer Active Corey SEGURA Active LOSARTAN POTASSIUM-HCTZ 100-12.5 MG ORAL TABLET 1 by m outh daily for high blood pressure LOSARTAN POTASSIUM-HCTZ 55732210944 No Longer A ctive Mitch Urbina DO Active LISINOPRIL-HYDROCHLOROTHIAZIDE 20-12.5 MG ORAL TABLET 1 tab by m outh daily LISINOPRIL-HYDROCHLOROTHIAZIDE 83783517886 No Longer Active Mitch Urbina DO Active LISINOPRIL 20 MG ORAL TABLET 1 tab po at HS LIS INOPRIL 37872971977 No Longer Active Mitch Urbina DO Active COUMADIN 5 MG ORAL TABLET 1 by mouth every other day 2 WARFARIN SODIUM 11809024822 No Longer Active Mitch W Carlitos DO Active COUMADIN 6 MG ORAL TABLET 1 by mouth every other day 2 WARFARIN SODIUM 54515230959 No Longer Active Mitch Urbina DO Active SIMVASTATIN 40 MG ORAL TABLET 1 tab daily at bedtime SIMVASTATIN 16274923841 Active Renee Oconnor LPN Active SIMVASTATIN 20 MG ORAL TABLET 1 tab daily at bedtime 2 SIMVASTATIN 09892594336 No Longer Active Mitch Urbina DO Active LOVENOX 100 MG/ML SUBCUTANEOUS SOLUTION One injection twice a da y ENOXAPARIN SODIUM 32067709526 No Longer Active Carmine Yusuf MD Active JANUVIA 50 MG ORAL TABLET Take one by mouth daily SITAGLIPTIN PHOSPHATE 88953554057 Active Mitch Urbina DO Active JANUVIA 100 MG ORAL TABLET 1/2 by mouth every day 2011 SITAGLIPTIN PHOSPHATE 27754303251 No Longer Active Bijal Segal RN Acti ve METFORMIN HCL 500 MG ORAL TABLET 2 by mouth twice daily METFORMIN HCL 85555731935 No Longer Active Renee Oconnor LPN Active COLCRYS 0.6 MG ORAL TABLET 1 po q 6 hours prn gout pain COLCHICINE 89657475164 No Longer Active Camila Reese Active LISINOPRIL 5 MG ORAL TABLET 1 by mouth every day 11/17 LISINOPRIL 80972688872 No Longer Active Nguyen Perez Active KLOR-CON 20 MEQ ORAL PACKET Take one by mouth daily 20 09/10/08 POTASSIUM CHLORIDE 25161730912 No Longer Active Nguyen Perez Active FUROSEMIDE 40 MG ORAL TABLET 1 by mouth daily F UROSEMIDE 96232555728 No Longer Active Nguyen Perez Active PROVIGIL 100 MG ORAL TABLET Take one by mouth daily 08/20/04 MODAFINIL 45708252435 No Longer Active Mitch Urbina DO Active BACTRIM DS 800-160 MG ORAL TABLET 1 tab by mouth twice daily 201 10/19/09 TRIMETHOPRIM-SULFAMETHOXAZOLE 44927057993 No Longer Active Elian Hays MD Active ADULT ASPIRIN LOW STRENGTH 81 MG ORAL TABLET DISINTEGR ATING 1 by mouth every daily ASPIRIN 65990048109 Active Mitch Urbina DO Ac tive METOPROLOL TARTRATE 50 MG ORAL TABLET 1 by mouth twice daily METOPROLOL TARTRATE 42505706433 Active Mitch Urbina DO Active BACTRIM DS 800-160 MG ORAL TABLET 1 tab by mouth twice daily 201 10/19/09 BACTRIM DS 800-160 MG ORAL TABLET 232263 TRIMETHOPRIM-SULFAMETHOXAZOLE Inactive PROVIGIL 100 MG ORAL TABLET Take one by mouth daily 08/20/04 PROVIGIL 100 MG ORAL TABLET 718727 MODAFINIL Inactive FUROSEMIDE 40 MG ORAL TABLET 1 by mouth daily FUROSEMIDE 40 MG ORAL TABLET 618180 FUROSEMIDE Inactive KLOR-CON 20 MEQ ORAL PACKET Take one by mouth daily 09/10/08 KLOR- CON 20 MEQ ORAL PACKET 3301853 POTASSIUM CHLORIDE Inactive LISINOPRIL 5 MG ORAL TABLET 1 by mouth every day 11/17 LISINOPRIL 5 MG ORAL TABLET 602301 LISINOPRIL Inactive COLCRYS 0.6 MG ORAL TABLET 1 po q 6 hours prn gout pain COLCRYS 0.6 MG ORAL TABLET 121799 COLCHICINE Inactive JANUVIA 100 MG ORAL TABLET 1/2 by mouth every day 2011 JANUVIA 100 MG ORAL TABLET SITAGLIPTIN PHOSPHATE Inactive SIMVASTATIN 20 MG ORAL TABLET 1 tab daily at bedtime 2 SIMVASTATIN 20 MG ORAL TABLET 650965 SIMVASTATIN Inactive COUMADIN 6 MG ORAL TABLET 1 by mouth every other day 2 COUMADIN 6 MG ORAL TABLET 915029 WARFARIN SODIUM Inactive COUMADIN 5 MG ORAL TABLET 1 by mouth every other day 2 COUMADIN 5 MG ORAL TABLET 907848 WARFARIN SODIUM Inactive LISINOPRIL 20 MG ORAL TABLET 1 tab po at HS LISINOPRIL 20 MG ORAL TABLET 189240 LISINOPRIL Inactive LISINOPRIL-HYDROCHLOROTHIAZIDE 20-12.5 MG ORAL TABLET 1 tab by m outh daily LISINOPRIL-HYDROCHLOROTHIAZIDE 20-12.5 MG ORAL TABLET 483753 LISINOPRIL-HYDROCHLOROTHIAZIDE Inactive POLYTRIM 64450-2.1 UNIT/ML-% OPHTHALMIC SOLUTION 1 rui p in affected eye every 3 hours while awake x 7 days POLYTRIM 1000 0-0.1 UNIT/ML-% OPHTHALMIC SOLUTION 919729 POLYMYXIN B-TRIMETHOPRIM Inactive COUMADIN 4 MG ORAL TABLET 1 tablet daily COUMADIN 4 MG ORAL TABLET 083684 WARFARIN SODIUM Inactive CLONIDINE HCL 0.1 MG ORAL TABLET 1 po bid 7 days, then 1/2 t ab po bid 7 days CLONIDINE HCL 0.1 MG ORAL TABLET 337326 CLONIDIN E HCL Inactive ALLOPURINOL 300 MG ORAL TABLET Take 1 tablet by mouth daily 2012 ALLOPURINOL 300 MG ORAL TABLET 097881 ALLOPURINOL I nactive MECLIZINE HCL 25 MG ORAL TABLET 1 po tid 3 days, then 1/2 ta b tid 3 days MECLIZINE HCL 25 MG ORAL TABLET 236842 MECLIZINE HCL Inactive AMLODIPINE BESYLATE 5 MG ORAL TABLET 1 tablet by mouth daily 201 01/20/04 AMLODIPINE BESYLATE 5 MG ORAL TABLET 920658 AMLODIPINE BESYLATE Inactive KEFLEX 500 MG ORAL CAPSULE 1 po qid K EFLEX 500 MG ORAL CAPSULE 792954 CEPHALEXIN Inactive COLCRYS 0.6 MG ORAL TABLET 1 tab qid prn gout COLCRYS 0.6 MG ORAL TABLET 222359 COLCHICINE Inactive FAMOTIDINE 20 MG ORAL TABLET by mouth twice a day 2017 FAMOTIDINE 20 MG ORAL TABLET 936351 FAMOTIDINE Inactive GLIMEPIRIDE 2 MG ORAL TABLET 1 po BID GLIMEPIRIDE 2 MG ORAL TABLET 865822 GLIMEPIRIDE Inactive LOVENOX 100 MG/ML SUBCUTANEOUS SOLUTION One injection twice a da y LOVENOX 100 MG/ML SUBCUTANEOUS SOLUTION 994185 ENOXAPAR IN SODIUM Inactive Vital Signs Date [...] HGBA1C - Chemistry cholesterol, serum 136 mg/dL 906-036 5835/12/06 triglyceride, serum, fasting 247 mg/dL 30-200 HDL cholesterol, serum 41 mg/dL 32-60 LDL cholesterol, serum 46 mg/dL 0-130 aspartate aminotransferase (SGOT), serum 22 U/L 15-37 alanine aminotransferase (SGPT), serum 30 U/L 12-78 bilirubin, serum, total 0.80 mg/dL 0.00-1.00 hemoglobin A1C, blood, as % of total hemoglobin 6.4 % 4.3-6.0 Encounters Code Encounter Date Provider Facility CPT-65895 Level 3 Est. Patient 18:25:53 CDT Mitch luis [facility] CPT-49184 Level 3 Est. Patient 19:43:34 CDT Mitch luis [facility] CPT-43475 Level 4 Est. Patient 09:30:18 CDT Mitch luis [facility] CPT-24850 Level 3 Est. Patient 15:10:14 CDT Joe kamara [facility] CPT-62841 Level 3 Est. Patient 15:03:46 CDT Joe kamara [facility] CPT-62873 Level 3 Est. Patient 14:21:06 CDT Mitch luis [facility] CPT-54997 Level 3 Est. Patient 14:52:06 CDT Joe kamara [facility] CPT-10239 Level 3 Est. Patient 09:34:30 [employer]HOU[employer] Mitch luis [facility] CPT-75876 Level 3 Est. Patient 09:37:15 CDT Mitch luis [facility] CPT-07883 Level 3 Est. Patient 17:01:00 [employer]HOU[employer] WORKER Mitch luis [facility] CPT-68137 Level 3 Est. Patient 13:53:19 [employer]HOUSE WORKER Mitch luis [facility] CPT-88314 Level 3 Est. Patient 19:19:37 [employer]HOU[employer] WORKER Mitch luis [facility] CPT-50179 Level 3 Est. Patient 13:25:53 [employer]HOUSE WORKER Tavo toure MD [facility] CPT-04225 Level 3 Est. Patient 18:17:28 CDT Mitch Arnol luis [facility] CPT-42234 Level 3 Est. Patient 15:22:57 CDT Mitch Arnol luis [facility] CPT-67645 Level 3 Est. Patient 18:21:50 CDT Mitch luis [facility] CPT-98500 Level 3 Est. Patient 18:20:38 CDT Mitch Arnol luis [facility] CPT-14375 Level 3 Est. Patient 15:37:55 CDT Mitch Ambrose Nona luis [facility] CPT-75607 Level 2 Est. Patient 15:54:44 CDT Carmine benton MD [facility] CPT-63423 Level 3 Est. Patient 21:46:01 [employer]HOUSE WORKER Mitch luis [facility] CPT-59167 Level 3 Est. Patient 22:15:50 CDT Mitch Arnol luis [facility] CPT-87503 Level 3 Est. Patient 10:48:15 CDT Mitch luis [facility] CPT-91924 Level 3 Est. Patient 23:20:57 CDT Tavo toure MD [facility] CPT-52008 Level 3 Est. Patient 16:26:13 CDT Mitch luis [facility] Procedures Code Procedure Name Date Entry Date Standard Desc ription CPT-JTINJ Asp/Joint Injection 18:47:02 CDT CPT-26048 Venipuncture Draw Fee 09:26:17 CDT CPT-48722 PT/INR - LAB USE ONLY 13:32:49 [employer] CPT-11395 Venipuncture Draw Fee 13:32:49 [employer]HOU[employer] WORK[employer] CPT-97404 PT/INR - LAB USE ONLY 10:34:49 [employer]HOU[employer] WORK[employer] CPT-89676 Venipuncture Draw Fee 10:34:48 [employer]HOU[employer] WORK[employer] CPT-84404 PT/INR - LAB USE ONLY 09:22:03 [employer]HOUSE WORK[employer] CPT-77916 Venipuncture Draw Fee 09:22:02 [employer]HOUSE WORK[employer] CPT-71284 Hemoccult IFOBT - LAB USE ONLY 10:27:22 CDT CPT-13967 Venipuncture Draw Fee 08:27:08 CDT CPT-80612 Liver Profile - LAB USE ONLY 08:27:07 CDT 2 CPT-40930 Microalbumin - LAB USE ONLY 08:27:07 CDT 20 25/05/09 CPT-05099 PT/INR - LAB USE ONLY 08:27:07 CDT CPT-39377 HGBA1C - LAB USE ONLY 08:27:07 CDT CPT-32942 CBC - LAB USE ONLY 08:27:07 CDT CPT-42678 Venipuncture Draw Fee 11:09:14 CDT CPT-37283 Venipuncture Draw Fee 08:32:21 [employer]HOU[employer] WORK[employer] CPT-42313 Venipuncture Draw Fee 09:38:56 [employer]HOU[employer] WORKER CPT-18207 No Charge Offi Visit 21:36:07 CDT 1 CPT-04814 Venipuncture Draw Fee 10:13:28 [employer]HOUSE WORKER CPT-52155 Venipuncture Draw Fee 08:31:11 CDT CPT-42992 Aspir/Inject Med Joint 18:17:28 CDT CPT-49847 Venipuncture Draw Fee 10:13:30 CDT CPT-99884 Venipuncture Draw Fee 08:31:43 [employer]HOUSE WORKER CPT-JTINJ Joint Injection 18:34:50 CDT CPT-02000 Knee 3V 12:25:09 CDT CPT-97442 Venipuncture Draw Fee 12:15:57 CDT CPT-060 Medical Surveillance Exam 21:31:43 CDT 2011 CPT-27087 Venipuncture Draw Fee 08:32:05 W[employer]HOUSE WORKER CPT-OV Office Visit 18:19:06 CDT
--- OUTSIDE RECORDS SUMMARY | 2020-01-18 13:40 | XMS REPORT | Clinical Summary ---
Author Author Admin, Mitch Leon Organization [facility] Address Unknown Phone Unavailable Allergies, [...] hyperlipidemia DIABETES, TYPE 2 250.00 Active Renan aHys MD Diabetes mellitus without mention of complication, [...] Coronary atherosclerosis of unspecified type of vessel, [place] or graft EDEMA 782.3 Resolved Mitch Urbina [...] Start Date Stop Date Generic Name [facility] Status Provider Patient Instruction GLIMEPIRIDE 4 MG ORAL TABLET 1 tablet by mouth twice daily f or diabetes GLIMEPIRIDE 47992413963 Active Mitch Urbina DO Active GLIMEPIRIDE 2 MG ORAL TABLET 1 po BID GLIMEPI RIDE 01838299764 No Longer Active Mitch Urbina DO Active AMLODIPINE BESYLATE 5 MG ORAL TABLET 1 tablet by mouth daily AMLODIPINE BESYLATE 48418111758 Active Mitch Urbina DO Active PROVIGIL 200 MG ORAL TABLET 1/2 tab po q day MODA FINIL 70585874107 Active Renee Oconnor LPN Active FAMOTIDINE 20 MG ORAL TABLET by mouth twice a day 2017 FAMOTIDINE 80886755915 No Longer Active Mitch Urbina DO Active COLCRYS 0.6 MG ORAL TABLET 1 tab qid prn gout C OLCHICINE 10330110916 No Longer Active Mitch Urbina DO Active KEFLEX 500 MG ORAL CAPSULE 1 po qid CEPHALEXI N 55562978927 No Longer Active Mitch Urbina DO Active LOSARTAN POTASSIUM 100 MG ORAL TABLET 1 pill by mouth daily, for blood pressure LOSARTAN POTASSIUM 29276355051 Active Ana Ocampo Active AMLODIPINE BESYLATE 5 MG ORAL TABLET 1 tablet by mouth daily 201 01/20/04 AMLODIPINE BESYLATE 32830874137 No Longer Active Joe fulton APRN Active MITIGARE 0.6 MG ORAL CAPSULE 2 capsules at onset of go ut pain, then take one capsule at 1 hour if symptoms persist. COLCHICINE 59 312228744 Active Mitch Urbina DO Active COUMADIN 1 MG ORAL TABLET 2 tabs orally daily with the 5mg tab to equal 7mg daily WARFARIN SODIUM 27076318894 Active Mitch Arnol Urbina DO Active INVOKANA 100 MG ORAL TABLET 1 tablet orally daily CANAGLIFLOZIN 34443555969 Active Curly Coker MD Active MINOXIDIL 2.5 MG ORAL TABLET 1 tablet daily for high blood press ure MINOXIDIL 26249763066 Active Renee Elvin DE LA ROSA Active MECLIZINE HCL 25 MG ORAL TABLET 1 po tid 3 days, then 1/2 ta b tid 3 days MECLIZINE HCL 76286096676 No Longer Active Corey SEGURA Active ALLOPURINOL 300 MG ORAL TABLET Take 1 tablet by mouth daily 2012 ALLOPURINOL 72182513093 No Longer Active Corey SEGURA Active CLONIDINE HCL 0.1 MG ORAL TABLET 1 po bid 7 days, then 1/2 t ab po bid 7 days CLONIDINE HCL 17884291472 No Longer Active Corey SEGURA Active COUMADIN 5 MG ORAL TABLET 1 tab PO daily WARFAR IN SODIUM 45357696638 Active Mitch Urbina DO Active COUMADIN 4 MG ORAL TABLET 1 tablet daily WARFAR IN SODIUM 65157673976 No Longer Active Corey SEGURA Active POLYTRIM 17522-8.1 UNIT/ML-% OPHTHALMIC SOLUTION 1 rui p in affected eye every 3 hours while awake x 7 days POLYMYXIN B-TRIMETHOP RIM 82596329336 No Longer Active Corey SEGURA Active LOSARTAN POTASSIUM-HCTZ 100-12.5 MG ORAL TABLET 1 by m outh daily for high blood pressure LOSARTAN POTASSIUM-HCTZ 23491174045 No Longer A ctive Mitch Urbina DO Active LISINOPRIL-HYDROCHLOROTHIAZIDE 20-12.5 MG ORAL TABLET 1 tab by m outh daily LISINOPRIL-HYDROCHLOROTHIAZIDE 37038043053 No Longer Active Mitch Urbina DO Active LISINOPRIL 20 MG ORAL TABLET 1 tab po at HS LIS INOPRIL 62234293274 No Longer Active Mitch Urbina DO Active COUMADIN 5 MG ORAL TABLET 1 by mouth every other day 2 WARFARIN SODIUM 59908230010 No Longer Active Mitch Urbina DO Active COUMADIN 6 MG ORAL TABLET 1 by mouth every other day 2 WARFARIN SODIUM 68760379424 No Longer Active Mitch Urbina DO Active SIMVASTATIN 40 MG ORAL TABLET 1 tab daily at bedtime SIMVASTATIN 32847247320 Active Renee Oconnor LPN Active SIMVASTATIN 20 MG ORAL TABLET 1 tab daily at bedtime 2 SIMVASTATIN 07066897919 No Longer Active Mitch Urbina DO Active LOVENOX 100 MG/ML SUBCUTANEOUS SOLUTION One injection twice a da y ENOXAPARIN SODIUM 38724364691 No Longer Active Carmine Yusuf MD Active JANUVIA 50 MG ORAL TABLET Take one by mouth daily SITAGLIPTIN PHOSPHATE 02552580308 Active Renee Elvin DE LA ROSA Active JANUVIA 100 MG ORAL TABLET 1/2 by mouth every day 2011 SITAGLIPTIN PHOSPHATE 86478586685 No Longer Active Bijal Segal RN Acti ve METFORMIN HCL 500 MG ORAL TABLET 2 by mouth twice daily METFORMIN HCL 47194469044 No Longer Active Renee Oconnor LPN Active COLCRYS 0.6 MG ORAL TABLET 1 po q 6 hours prn gout pain COLCHICINE 67601757785 No Longer Active Camila Reese Active LISINOPRIL 5 MG ORAL TABLET 1 by mouth every day 11/17 LISINOPRIL 80856114476 No Longer Active Nguyen Perez Active KLOR-CON 20 MEQ ORAL PACKET Take one by mouth daily 20 09/10/08 POTASSIUM CHLORIDE 74022125916 No Longer Active Nguyen Perez Active FUROSEMIDE 40 MG ORAL TABLET 1 by mouth daily F UROSEMIDE 36400123139 No Longer Active Nguyenmolly Perez Active PROVIGIL 100 MG ORAL TABLET Take one by mouth daily 08/20/04 MODAFINIL 11882782794 No Longer Active Mitch Urbina DO Active BACTRIM DS 800-160 MG ORAL TABLET 1 tab by mouth twice daily 201 10/19/09 TRIMETHOPRIM-SULFAMETHOXAZOLE 85359650424 No Longer Active Elian Hays MD Active ADULT ASPIRIN LOW STRENGTH 81 MG ORAL TABLET DISINTEGR ATING 1 by mouth every daily ASPIRIN 59110093000 Active Mitch Urbina DO Ac tive METOPROLOL TARTRATE 50 MG ORAL TABLET 1 by mouth twice daily METOPROLOL TARTRATE 88442574698 Active Mitch Urbina DO Active BACTRIM DS 800-160 MG ORAL TABLET 1 tab by mouth twice daily 201 10/19/09 BACTRIM DS 800-160 MG ORAL TABLET 538846 TRIMETHOPRIM-SULFAMETHOXAZOLE Inactive PROVIGIL 100 MG ORAL TABLET Take one by mouth daily 08/20/04 PROVIGIL 100 MG ORAL TABLET 106224 MODAFINIL Inactive FUROSEMIDE 40 MG ORAL TABLET 1 by mouth daily FUROSEMIDE 40 MG ORAL TABLET 919389 FUROSEMIDE Inactive KLOR-CON 20 MEQ ORAL PACKET Take one by mouth daily 09/10/08 KLOR- CON 20 MEQ ORAL PACKET 4995524 POTASSIUM CHLORIDE Inactive LISINOPRIL 5 MG ORAL TABLET 1 by mouth every day 11/17 LISINOPRIL 5 MG ORAL TABLET 637294 LISINOPRIL Inactive COLCRYS 0.6 MG ORAL TABLET 1 po q 6 hours prn gout pain COLCRYS 0.6 MG ORAL TABLET 022092 COLCHICINE Inactive JANUVIA 100 MG ORAL TABLET 1/2 by mouth every day 2011 JANUVIA 100 MG ORAL TABLET SITAGLIPTIN PHOSPHATE Inactive SIMVASTATIN 20 MG ORAL TABLET 1 tab daily at bedtime 2 SIMVASTATIN 20 MG ORAL TABLET 442814 SIMVASTATIN Inactive COUMADIN 6 MG ORAL TABLET 1 by mouth every other day 2 COUMADIN 6 MG ORAL TABLET 754127 WARFARIN SODIUM Inactive COUMADIN 5 MG ORAL TABLET 1 by mouth every other day 2 COUMADIN 5 MG ORAL TABLET 504276 WARFARIN SODIUM Inactive LISINOPRIL 20 MG ORAL TABLET 1 tab po at HS LISINOPRIL 20 MG ORAL TABLET 676339 LISINOPRIL Inactive LISINOPRIL-HYDROCHLOROTHIAZIDE 20-12.5 MG ORAL TABLET 1 tab by m outh daily LISINOPRIL-HYDROCHLOROTHIAZIDE 20-12.5 MG ORAL TABLET 425833 LISINOPRIL-HYDROCHLOROTHIAZIDE Inactive POLYTRIM 56161-4.1 UNIT/ML-% OPHTHALMIC SOLUTION 1 rui p in affected eye every 3 hours while awake x 7 days POLYTRIM 1000 0-0.1 UNIT/ML-% OPHTHALMIC SOLUTION 748177 POLYMYXIN B-TRIMETHOPRIM Inactive COUMADIN 4 MG ORAL TABLET 1 tablet daily COUMADIN 4 MG ORAL TABLET 999515 WARFARIN SODIUM Inactive CLONIDINE HCL 0.1 MG ORAL TABLET 1 po bid 7 days, then 1/2 t ab po bid 7 days CLONIDINE HCL 0.1 MG ORAL TABLET 980744 CLONIDIN E HCL Inactive ALLOPURINOL 300 MG ORAL TABLET Take 1 tablet by mouth daily 2012 ALLOPURINOL 300 MG ORAL TABLET 498542 ALLOPURINOL I nactive MECLIZINE HCL 25 MG ORAL TABLET 1 po tid 3 days, then 1/2 ta b tid 3 days MECLIZINE HCL 25 MG ORAL TABLET 518530 MECLIZINE HCL Inactive AMLODIPINE BESYLATE 5 MG ORAL TABLET 1 tablet by mouth daily 201 01/20/04 AMLODIPINE BESYLATE 5 MG ORAL TABLET 850781 AMLODIPINE BESYLATE Inactive KEFLEX 500 MG ORAL CAPSULE 1 po qid K EFLEX 500 MG ORAL CAPSULE 959163 CEPHALEXIN Inactive COLCRYS 0.6 MG ORAL TABLET 1 tab qid prn gout COLCRYS 0.6 MG ORAL TABLET 618137 COLCHICINE Inactive FAMOTIDINE 20 MG ORAL TABLET by mouth twice a day 2017 FAMOTIDINE 20 MG ORAL TABLET 924754 FAMOTIDINE Inactive GLIMEPIRIDE 2 MG ORAL TABLET 1 po BID GLIMEPIRIDE 2 MG ORAL TABLET 604384 GLIMEPIRIDE Inactive LOVENOX 100 MG/ML SUBCUTANEOUS SOLUTION One injection twice a da y LOVENOX 100 MG/ML SUBCUTANEOUS SOLUTION 841095 ENOXAPAR IN SODIUM Inactive Vital Signs Date [...] 247 mg/dL 30-200 cholesterol, serum 136 mg/dL 916-274 0043/12/06 alanine aminotransferase (SGPT), serum 30 U/L 12-78 bilirubin, serum, total 0.80 mg/dL 0.00-1.00 hemoglobin A1C, blood, as % of total hemoglobin 6.4 % 4.3-6.0 Encounters Code Encounter Date Provider Facility CPT-45720 Level 3 Est. Patient 18:25:53 CDT Mitch luis [facility] CPT-26611 Level 3 Est. Patient 19:43:34 CDT Mitch luis [facility] CPT-67717 Level 4 Est. Patient 09:30:18 CDT Mitch luis [facility] CPT-19297 Level 3 Est. Patient 15:10:14 CDT Joe kamara [facility] CPT-34499 Level 3 Est. Patient 15:03:46 CDT Joe kamara [facility] CPT-54168 Level 3 Est. Patient 14:21:06 CDT Mitch luis [facility] CPT-42409 Level 3 Est. Patient 14:52:06 CDT Joe kamara [facility] CPT-72522 Level 3 Est. Patient 09:34:30 BRAINER Mitch luis [facility] CPT-78425 Level 3 Est. Patient 09:37:15 CDT Mitch luis [facility] CPT-12788 Level 3 Est. Patient 17:01:00 BRAINER Mitch luis [facility] CPT-93437 Level 3 Est. Patient 13:53:19 BRAINER Mitch luis [facility] CPT-82521 Level 3 Est. Patient 19:19:37 BRAINER Mitch luis [facility] CPT-86093 Level 3 Est. Patient 13:25:53 BRAINER Tavo toure MD [facility] CPT-82291 Level 3 Est. Patient 18:17:28 CDT Mitch Arnol luis [facility] CPT-00227 Level 3 Est. Patient 15:22:57 CDT Mitch Arnol luis [facility] CPT-13945 Level 3 Est. Patient 18:21:50 CDT Mitch luis [facility] CPT-98267 Level 3 Est. Patient 18:20:38 CDT Mitch Arnol luis [facility] CPT-91567 Level 3 Est. Patient 15:37:55 CDT Mitch Arnol luis [facility] CPT-91426 Level 2 Est. Patient 15:54:44 CDT Carmine benton MD [facility] CPT-42808 Level 3 Est. Patient 21:46:01 BRAINER Mitch luis [facility] CPT-36367 Level 3 Est. Patient 22:15:50 CDT Mitch Arnol luis [facility] CPT-18907 Level 3 Est. Patient 10:48:15 CDT Mitch luis [facility] CPT-54824 Level 3 Est. Patient 23:20:57 CDT Tavo toure MD [facility] CPT-24259 Level 3 Est. Patient 16:26:13 CDT Mitch luis [facility] Procedures Code Procedure Name Date Entry Date Standard Desc ription CPT-JTINJ Asp/Joint Injection 18:47:02 CDT CPT-11384 Venipuncture Draw Fee 09:26:17 CDT CPT-29705 PT/INR - LAB USE ONLY 13:32:49 BRAINER CPT-07438 Venipuncture Draw Fee 13:32:49 BRAINER CPT-90130 PT/INR - LAB USE ONLY 10:34:49 BRAINER CPT-49513 Venipuncture Draw Fee 10:34:48 BRAINER CPT-41728 PT/INR - LAB USE ONLY 09:22:03 BRAINER CPT-58367 Venipuncture Draw Fee 09:22:02 BRAINER CPT-12591 Hemoccult IFOBT - LAB USE ONLY 10:27:22 CDT CPT-87660 Venipuncture Draw Fee 08:27:08 CDT CPT-27404 Liver Profile - LAB USE ONLY 08:27:07 CDT 2 CPT-68992 Microalbumin - LAB USE ONLY 08:27:07 CDT 20 25/05/09 CPT-20161 PT/INR - LAB USE ONLY 08:27:07 CDT CPT-13360 HGBA1C - LAB USE ONLY 08:27:07 CDT CPT-99343 CBC - LAB USE ONLY 08:27:07 CDT CPT-08727 Venipuncture Draw Fee 11:09:14 CDT CPT-21231 Venipuncture Draw Fee 08:32:21 BRAINER CPT-90056 Venipuncture Draw Fee 09:38:56 BRAINER CPT-11934 No Charge Offi Visit 21:36:07 CDT 1 CPT-32357 Venipuncture Draw Fee 10:13:28 BRAINER CPT-68125 Venipuncture Draw Fee 08:31:11 CDT CPT-82888 Aspir/Inject Med Joint 18:17:28 CDT CPT-35145 Venipuncture Draw Fee 10:13:30 CDT CPT-54827 Venipuncture Draw Fee 08:31:43 BRAINER CPT-JTINJ Joint Injection 18:34:50 CDT CPT-98145 Knee 3V 12:25:09 CDT CPT-89344 Venipuncture Draw Fee 12:15:57 CDT CPT-060 Medical Surveillance Exam 21:31:43 CDT 2011 CPT-59229 Venipuncture Draw Fee 08:32:05 BRAINER CPT-OV Office Visit 18:19:06 CDT
--- OUTSIDE RECORDS SUMMARY | 2020-01-18 13:40 | XMS REPORT | Clinical Summary ---
Author Author Admin, Mitch Leon Organization [facility] Address Unknown Phone Unavailable Allergies, [...] Coronary atherosclerosis of unspecified type of vessel, wainwright or graft EDEMA 782.3 Resolved Mitch Urbina [...] Start Date Stop Date Generic Name [facility] Status Provider Patient Instruction GLIMEPIRIDE 4 MG ORAL TABLET 1 tablet by mouth twice daily f or diabetes GLIMEPIRIDE 41194499790 Active Mitch Urbina DO Active GLIMEPIRIDE 2 MG ORAL TABLET 1 po BID GLIMEPI RIDE 15512993260 No Longer Active Mitch Urbina DO Active AMLODIPINE BESYLATE 5 MG ORAL TABLET 1 tablet by mouth daily AMLODIPINE BESYLATE 59454838279 Active Mitch Urbina DO Active PROVIGIL 200 MG ORAL TABLET 1/2 tab po q day MODA FINIL 79697373499 Active Renee Oconnor LPN Active FAMOTIDINE 20 MG ORAL TABLET by mouth twice a day 2017 FAMOTIDINE 96549661930 No Longer Active Mitch Urbina DO Active COLCRYS 0.6 MG ORAL TABLET 1 tab qid prn gout C OLCHICINE 35868429108 No Longer Active Mitch Ambrose Carlitos Active KEFLEX 500 MG ORAL CAPSULE 1 po qid CEPHALEXI N 54863758167 No Longer Active Mitch Urbina DO Active LOSARTAN POTASSIUM 100 MG ORAL TABLET 1 pill by mouth daily, for blood pressure LOSARTAN POTASSIUM 79784098741 Active Renee Oconnor LPN Active AMLODIPINE BESYLATE 5 MG ORAL TABLET 1 tablet by mouth daily 201 01/20/04 AMLODIPINE BESYLATE 49337678917 No Longer Active Joe fulton [employer]DER OPERATOR Active MITIGARE 0.6 MG ORAL CAPSULE 2 capsules at onset of go ut pain, then take one capsule at 1 hour if symptoms persist. COLCHICINE 59 602736055 Active Mitch Urbina DO Active COUMADIN 1 MG ORAL TABLET 2 tabs orally daily with the 5mg tab to equal 7mg daily WARFARIN SODIUM 55063587311 Active Mitch Urbina DO Active INVOKANA 100 MG ORAL TABLET 1 tablet orally daily CANAGLIFLOZIN 07631661089 Active Curly Coker MD Active MINOXIDIL 2.5 MG ORAL TABLET 1 tablet daily for high blood press ure MINOXIDIL 15572937553 Active Renee Oconnor LPN Active MECLIZINE HCL 25 MG ORAL TABLET 1 po tid 3 days, then 1/2 ta b tid 3 days MECLIZINE HCL 36807749952 No Longer Active Corey SEGURA Active ALLOPURINOL 300 MG ORAL TABLET Take 1 tablet by mouth daily 2012 ALLOPURINOL 06842493151 No Longer Active Corey SEGURA Active CLONIDINE HCL 0.1 MG ORAL TABLET 1 po bid 7 days, then 1/2 t ab po bid 7 days CLONIDINE HCL 55863485355 No Longer Active Corey SEGURA Active COUMADIN 5 MG ORAL TABLET 1 tab PO daily WARFAR IN SODIUM 40971308669 Active Mitch Urbina DO Active COUMADIN 4 MG ORAL TABLET 1 tablet daily WARFAR IN SODIUM 31928602780 No Longer Active Corey SEGURA Active POLYTRIM 57440-1.1 UNIT/ML-% OPHTHALMIC SOLUTION 1 rui p in affected eye every 3 hours while awake x 7 days POLYMYXIN B-TRIMETHOP RIM 19384967133 No Longer Active Corey SEGURA Active LOSARTAN POTASSIUM-HCTZ 100-12.5 MG ORAL TABLET 1 by m outh daily for high blood pressure LOSARTAN POTASSIUM-HCTZ 85010408481 No Longer A ctive Mitch Urbina DO Active LISINOPRIL-HYDROCHLOROTHIAZIDE 20-12.5 MG ORAL TABLET 1 tab by m outh daily LISINOPRIL-HYDROCHLOROTHIAZIDE 49351987036 No Longer Active Mitch Urbina DO Active LISINOPRIL 20 MG ORAL TABLET 1 tab po at HS LIS INOPRIL 48306155076 No Longer Active Mitch Urbina DO Active COUMADIN 5 MG ORAL TABLET 1 by mouth every other day 2 WARFARIN SODIUM 36445501097 No Longer Active Mitch W Carlitos DO Active COUMADIN 6 MG ORAL TABLET 1 by mouth every other day 2 WARFARIN SODIUM 20033151611 No Longer Active Mitch Urbina DO Active SIMVASTATIN 40 MG ORAL TABLET 1 tab daily at bedtime SIMVASTATIN 63948398327 Active Renee Oconnor LPN Active SIMVASTATIN 20 MG ORAL TABLET 1 tab daily at bedtime 2 SIMVASTATIN 39319316670 No Longer Active Mitch Urbina DO Active LOVENOX 100 MG/ML SUBCUTANEOUS SOLUTION One injection twice a da y ENOXAPARIN SODIUM 94488423998 No Longer Active Carmine Yusuf MD Active JANUVIA 50 MG ORAL TABLET Take one by mouth daily SITAGLIPTIN PHOSPHATE 92526543308 Active Mitch Urbina DO Active JANUVIA 100 MG ORAL TABLET 1/2 by mouth every day 2011 SITAGLIPTIN PHOSPHATE 40481424149 No Longer Active Bijal Segal RN Acti ve METFORMIN HCL 500 MG ORAL TABLET 2 by mouth twice daily METFORMIN HCL 81303066488 No Longer Active Renee Oconnor LPN Active COLCRYS 0.6 MG ORAL TABLET 1 po q 6 hours prn gout pain COLCHICINE 74653318254 No Longer Active Camila Reese Active LISINOPRIL 5 MG ORAL TABLET 1 by mouth every day 11/17 LISINOPRIL 26729415690 No Longer Active Nguyen Perez Active KLOR-CON 20 MEQ ORAL PACKET Take one by mouth daily 20 09/10/08 POTASSIUM CHLORIDE 78986665419 No Longer Active Nguyen Perez Active FUROSEMIDE 40 MG ORAL TABLET 1 by mouth daily F UROSEMIDE 91256754934 No Longer Active Nguyen Perez Active PROVIGIL 100 MG ORAL TABLET Take one by mouth daily 08/20/04 MODAFINIL 91422448592 No Longer Active Mitch Urbina DO Active BACTRIM DS 800-160 MG ORAL TABLET 1 tab by mouth twice daily 201 10/19/09 TRIMETHOPRIM-SULFAMETHOXAZOLE 55875051254 No Longer Active Elian Hays MD Active ADULT ASPIRIN LOW STRENGTH 81 MG ORAL TABLET DISINTEGR ATING 1 by mouth every daily ASPIRIN 31703974665 Active Mitch Urbina DO Ac tive METOPROLOL TARTRATE 50 MG ORAL TABLET 1 by mouth twice daily METOPROLOL TARTRATE 76705233685 Active Mitch Urbina DO Active BACTRIM DS 800-160 MG ORAL TABLET 1 tab by mouth twice daily 201 10/19/09 BACTRIM DS 800-160 MG ORAL TABLET 038923 TRIMETHOPRIM-SULFAMETHOXAZOLE Inactive PROVIGIL 100 MG ORAL TABLET Take one by mouth daily 08/20/04 PROVIGIL 100 MG ORAL TABLET 305731 MODAFINIL Inactive FUROSEMIDE 40 MG ORAL TABLET 1 by mouth daily FUROSEMIDE 40 MG ORAL TABLET 695876 FUROSEMIDE Inactive KLOR-CON 20 MEQ ORAL PACKET Take one by mouth daily 09/10/08 KLOR- CON 20 MEQ ORAL PACKET 4127175 POTASSIUM CHLORIDE Inactive LISINOPRIL 5 MG ORAL TABLET 1 by mouth every day 11/17 LISINOPRIL 5 MG ORAL TABLET 767999 LISINOPRIL Inactive COLCRYS 0.6 MG ORAL TABLET 1 po q 6 hours prn gout pain COLCRYS 0.6 MG ORAL TABLET 011712 COLCHICINE Inactive JANUVIA 100 MG ORAL TABLET 1/2 by mouth every day 2011 JANUVIA 100 MG ORAL TABLET SITAGLIPTIN PHOSPHATE Inactive SIMVASTATIN 20 MG ORAL TABLET 1 tab daily at bedtime 2 SIMVASTATIN 20 MG ORAL TABLET 726321 SIMVASTATIN Inactive COUMADIN 6 MG ORAL TABLET 1 by mouth every other day 2 COUMADIN 6 MG ORAL TABLET 518429 WARFARIN SODIUM Inactive COUMADIN 5 MG ORAL TABLET 1 by mouth every other day 2 COUMADIN 5 MG ORAL TABLET 244790 WARFARIN SODIUM Inactive LISINOPRIL 20 MG ORAL TABLET 1 tab po at HS LISINOPRIL 20 MG ORAL TABLET 313638 LISINOPRIL Inactive LISINOPRIL-HYDROCHLOROTHIAZIDE 20-12.5 MG ORAL TABLET 1 tab by m outh daily LISINOPRIL-HYDROCHLOROTHIAZIDE 20-12.5 MG ORAL TABLET 327970 LISINOPRIL-HYDROCHLOROTHIAZIDE Inactive POLYTRIM 83240-2.1 UNIT/ML-% OPHTHALMIC SOLUTION 1 rui p in affected eye every 3 hours while awake x 7 days POLYTRIM 1000 0-0.1 UNIT/ML-% OPHTHALMIC SOLUTION 001077 POLYMYXIN B-TRIMETHOPRIM Inactive COUMADIN 4 MG ORAL TABLET 1 tablet daily COUMADIN 4 MG ORAL TABLET 843194 WARFARIN SODIUM Inactive CLONIDINE HCL 0.1 MG ORAL TABLET 1 po bid 7 days, then 1/2 t ab po bid 7 days CLONIDINE HCL 0.1 MG ORAL TABLET 102185 CLONIDIN E HCL Inactive ALLOPURINOL 300 MG ORAL TABLET Take 1 tablet by mouth daily 2012 ALLOPURINOL 300 MG ORAL TABLET 989023 ALLOPURINOL I nactive MECLIZINE HCL 25 MG ORAL TABLET 1 po tid 3 days, then 1/2 ta b tid 3 days MECLIZINE HCL 25 MG ORAL TABLET 912942 MECLIZINE HCL Inactive AMLODIPINE BESYLATE 5 MG ORAL TABLET 1 tablet by mouth daily 201 01/20/04 AMLODIPINE BESYLATE 5 MG ORAL TABLET 211878 AMLODIPINE BESYLATE Inactive KEFLEX 500 MG ORAL CAPSULE 1 po qid K EFLEX 500 MG ORAL CAPSULE 699597 CEPHALEXIN Inactive COLCRYS 0.6 MG ORAL TABLET 1 tab qid prn gout COLCRYS 0.6 MG ORAL TABLET 123451 COLCHICINE Inactive FAMOTIDINE 20 MG ORAL TABLET by mouth twice a day 2017 FAMOTIDINE 20 MG ORAL TABLET 993291 FAMOTIDINE Inactive GLIMEPIRIDE 2 MG ORAL TABLET 1 po BID GLIMEPIRIDE 2 MG ORAL TABLET 317185 GLIMEPIRIDE Inactive LOVENOX 100 MG/ML SUBCUTANEOUS SOLUTION One injection twice a da y LOVENOX 100 MG/ML SUBCUTANEOUS SOLUTION 920350 ENOXAPAR IN SODIUM Inactive Vital Signs Date [...] HGBA1C - Chemistry cholesterol, serum 136 mg/dL 680-934 3578/12/06 triglyceride, serum, fasting 247 mg/dL 30-200 HDL cholesterol, serum 41 mg/dL 32-60 LDL cholesterol, serum 46 mg/dL 0-130 aspartate aminotransferase (SGOT), serum 22 U/L 15-37 alanine aminotransferase (SGPT), serum 30 U/L 12-78 bilirubin, serum, total 0.80 mg/dL 0.00-1.00 hemoglobin A1C, blood, as % of total hemoglobin 6.4 % 4.3-6.0 Encounters Code Encounter Date Provider Facility CPT-36669 Level 3 Est. Patient 18:25:53 CDT Mitch luis [facility] CPT-65291 Level 3 Est. Patient 19:43:34 CDT Mitch luis [facility] CPT-04280 Level 4 Est. Patient 09:30:18 CDT Mitch luis [facility] CPT-23967 Level 3 Est. Patient 15:10:14 CDT Joe kamara [facility] CPT-01097 Level 3 Est. Patient 15:03:46 CDT Joe kamara [facility] CPT-83905 Level 3 Est. Patient 14:21:06 CDT Mitch luis [facility] CPT-94721 Level 3 Est. Patient 14:52:06 CDT Joe kamara [facility] CPT-17979 Level 3 Est. Patient 09:34:30 [employer] Mitch luis [facility] CPT-55646 Level 3 Est. Patient 09:37:15 CDT iMtch luis [facility] CPT-21967 Level 3 Est. Patient 17:01:00 [employer] Mitch luis [facility] CPT-86069 Level 3 Est. Patient 13:53:19 [employer] Mitch luis [facility] CPT-97227 Level 3 Est. Patient 19:19:37 [employer] Mitch luis [facility] CPT-58819 Level 3 Est. Patient 13:25:53 [employer] Tavo toure MD [facility] CPT-88889 Level 3 Est. Patient 18:17:28 CDT Mitch Arnol lusi [facility] CPT-95640 Level 3 Est. Patient 15:22:57 CDT Mitch Arnol luis [facility] CPT-76746 Level 3 Est. Patient 18:21:50 CDT Mitch luis [facility] CPT-95096 Level 3 Est. Patient 18:20:38 CDT Mitch Arnol luis [facility] CPT-57446 Level 3 Est. Patient 15:37:55 CDT Mitch Ambrose Nona luis [facility] CPT-52820 Level 2 Est. Patient 15:54:44 CDT Carmine benton MD [facility] CPT-59165 Level 3 Est. Patient 21:46:01 [employer] Mitch luis [facility] CPT-59441 Level 3 Est. Patient 22:15:50 CDT Mitch Arnol luis [facility] CPT-29132 Level 3 Est. Patient 10:48:15 CDT Mitch luis [facility] CPT-84866 Level 3 Est. Patient 23:20:57 CDT Tavo toure MD [facility] CPT-12879 Level 3 Est. Patient 16:26:13 CDT Mitch luis [facility] Procedures Code Procedure Name Date Entry Date Standard Desc ription CPT-JTINJ Asp/Joint Injection 18:47:02 CDT CPT-19950 Venipuncture Draw Fee 09:26:17 CDT CPT-76278 PT/INR - LAB USE ONLY 13:32:49 [employer] CPT-13887 Venipuncture Draw Fee 13:32:49 [employer] CPT-98323 PT/INR - LAB USE ONLY 10:34:49 [employer] CPT-50590 Venipuncture Draw Fee 10:34:48 [employer] CPT-13622 PT/INR - LAB USE ONLY 09:22:03 [employer] CPT-14222 Venipuncture Draw Fee 09:22:02 [employer] CPT-35966 Hemoccult IFOBT - LAB USE ONLY 10:27:22 CDT CPT-15848 Venipuncture Draw Fee 08:27:08 CDT CPT-04787 Liver Profile - LAB USE ONLY 08:27:07 CDT 2 CPT-46533 Microalbumin - LAB USE ONLY 08:27:07 CDT 20 25/05/09 CPT-70827 PT/INR - LAB USE ONLY 08:27:07 CDT CPT-41688 HGBA1C - LAB USE ONLY 08:27:07 CDT CPT-26098 CBC - LAB USE ONLY 08:27:07 CDT CPT-37484 Venipuncture Draw Fee 11:09:14 CDT CPT-85638 Venipuncture Draw Fee 08:32:21 [employer] CPT-48798 Venipuncture Draw Fee 09:38:56 [employer] CPT-14603 No Charge Offi Visit 21:36:07 CDT 1 CPT-74605 Venipuncture Draw Fee 10:13:28 [employer] CPT-32933 Venipuncture Draw Fee 08:31:11 CDT CPT-12770 Aspir/Inject Med Joint 18:17:28 CDT CPT-00977 Venipuncture Draw Fee 10:13:30 CDT CPT-03314 Venipuncture Draw Fee 08:31:43 [employer] CPT-JTINJ Joint Injection 18:34:50 CDT CPT-15861 Knee 3V 12:25:09 CDT CPT-50583 Venipuncture Draw Fee 12:15:57 CDT CPT-060 Medical Surveillance Exam 21:31:43 CDT 2011 CPT-92872 Venipuncture Draw Fee 08:32:05 [employer] CPT-OV Office Visit 18:19:06 CDT
--- OUTSIDE RECORDS SUMMARY | 2020-01-18 13:40 | XMS REPORT | Clinical Summary ---
[...] Coronary atherosclerosis of unspecified type of vessel, [place] or graft EDEMA 782.3 Resolved Mitch Urbina [...] Start Date Stop Date Generic Name [facility] Status Provider Patient Instruction GLIMEPIRIDE 4 MG ORAL TABLET 1 tablet by mouth twice daily f or diabetes GLIMEPIRIDE 46287665989 Active Mitch Urbina DO Active GLIMEPIRIDE 2 MG ORAL TABLET 1 po BID GLIMEPI RIDE 59336877985 No Longer Active Mitch Urbina DO Active AMLODIPINE BESYLATE 5 MG ORAL TABLET 1 tablet by mouth daily AMLODIPINE BESYLATE 29051235926 Active Mitch Urbina DO Active PROVIGIL 200 MG ORAL TABLET 1/2 tab po q day MODA FINIL 05166508269 Active Renee Oconnor SITE HEAD Active FAMOTIDINE 20 MG ORAL TABLET by mouth twice a day 2017 FAMOTIDINE 35052132735 No Longer Active Mitch Urbina DO Active COLCRYS 0.6 MG ORAL TABLET 1 tab qid prn gout C OLCHICINE 97824244492 No Longer Active Mitch Urbina DO Active KEFLEX 500 MG ORAL CAPSULE 1 po qid CEPHALEXI N 32497836981 No Longer Active Mitch Urbina DO Active LOSARTAN POTASSIUM 100 MG ORAL TABLET 1 pill by mouth daily, for blood pressure LOSARTAN POTASSIUM 19958376912 Active Ana Ocampo Active AMLODIPINE BESYLATE 5 MG ORAL TABLET 1 tablet by mouth daily 201 01/20/04 AMLODIPINE BESYLATE 12523866359 No Longer Active Joe fulton APRN Active MITIGARE 0.6 MG ORAL CAPSULE 2 capsules at onset of go ut pain, then take one capsule at 1 hour if symptoms persist. COLCHICINE 59 412747390 Active Mitch Urbina DO Active COUMADIN 1 MG ORAL TABLET 2 tabs orally daily with the 5mg tab to equal 7mg daily WARFARIN SODIUM 95121527073 Active Mitch Urbina DO Active INVOKANA 100 MG ORAL TABLET 1 tablet orally daily CANAGLIFLOZIN 38170268817 Active Curly Coker MD Active MINOXIDIL 2.5 MG ORAL TABLET 1 tablet daily for high blood press ure MINOXIDIL 00131453729 Active Renee Elvin DE LA ROSA Active MECLIZINE HCL 25 MG ORAL TABLET 1 po tid 3 days, then 1/2 ta b tid 3 days MECLIZINE HCL 29222143743 No Longer Active Corey SEGURA Active ALLOPURINOL 300 MG ORAL TABLET Take 1 tablet by mouth daily 2012 ALLOPURINOL 87199552375 No Longer Active Corey SEGURA Active CLONIDINE HCL 0.1 MG ORAL TABLET 1 po bid 7 days, then 1/2 t ab po bid 7 days CLONIDINE HCL 81897340866 No Longer Active Corey SEGURA Active COUMADIN 5 MG ORAL TABLET 1 tab PO daily WARFAR IN SODIUM 69795447221 Active Mitch Urbina DO Active COUMADIN 4 MG ORAL TABLET 1 tablet daily WARFAR IN SODIUM 91637328323 No Longer Active Corey SEGURA Active POLYTRIM 23370-5.1 UNIT/ML-% OPHTHALMIC SOLUTION 1 rui p in affected eye every 3 hours while awake x 7 days POLYMYXIN B-TRIMETHOP RIM 52356453880 No Longer Active Corey SEGURA Active LOSARTAN POTASSIUM-HCTZ 100-12.5 MG ORAL TABLET 1 by m outh daily for high blood pressure LOSARTAN POTASSIUM-HCTZ 07946566149 No Longer A ctive Mitch Urbina DO Active LISINOPRIL-HYDROCHLOROTHIAZIDE 20-12.5 MG ORAL TABLET 1 tab by m outh daily LISINOPRIL-HYDROCHLOROTHIAZIDE 07692938216 No Longer Active Mitch Urbina DO Active LISINOPRIL 20 MG ORAL TABLET 1 tab po at HS LIS INOPRIL 66731352439 No Longer Active Mitch Urbina DO Active COUMADIN 5 MG ORAL TABLET 1 by mouth every other day 2 WARFARIN SODIUM 69397383456 No Longer Active Mitch Urbina DO Active COUMADIN 6 MG ORAL TABLET 1 by mouth every other day 2 WARFARIN SODIUM 55022101059 No Longer Active Mitch Urbina DO Active SIMVASTATIN 40 MG ORAL TABLET 1 tab daily at bedtime SIMVASTATIN 71843313175 Active Renee Oconnor LPN Active SIMVASTATIN 20 MG ORAL TABLET 1 tab daily at bedtime 2 SIMVASTATIN 21965380888 No Longer Active Mitch Urbina DO Active LOVENOX 100 MG/ML SUBCUTANEOUS SOLUTION One injection twice a da y ENOXAPARIN SODIUM 96268511763 No Longer Active Carmine Yusuf MD Active JANUVIA 50 MG ORAL TABLET Take one by mouth daily SITAGLIPTIN PHOSPHATE 53647277672 Active Renee Elvin DE LA ROSA Active JANUVIA 100 MG ORAL TABLET 1/2 by mouth every day 2011 SITAGLIPTIN PHOSPHATE 95008036329 No Longer Active Bijal Segal RN Acti ve METFORMIN HCL 500 MG ORAL TABLET 2 by mouth twice daily METFORMIN HCL 64309367658 No Longer Active Renee Oconnor LPN Active COLCRYS 0.6 MG ORAL TABLET 1 po q 6 hours prn gout pain COLCHICINE 69913896566 No Longer Active Camila Reese Active LISINOPRIL 5 MG ORAL TABLET 1 by mouth every day 11/17 LISINOPRIL 23946443201 No Longer Active Nguyen Perez Active KLOR-CON 20 MEQ ORAL PACKET Take one by mouth daily 20 09/10/08 POTASSIUM CHLORIDE 68099647382 No Longer Active Nguyen Preez Active FUROSEMIDE 40 MG ORAL TABLET 1 by mouth daily F UROSEMIDE 34212228296 No Longer Active Nguyen Perez Active PROVIGIL 100 MG ORAL TABLET Take one by mouth daily 08/20/04 MODAFINIL 34832099884 No Longer Active Mitch Urbina DO Active BACTRIM DS 800-160 MG ORAL TABLET 1 tab by mouth twice daily 201 10/19/09 TRIMETHOPRIM-SULFAMETHOXAZOLE 41745257515 No Longer Active Elian Hays MD Active ADULT ASPIRIN LOW STRENGTH 81 MG ORAL TABLET DISINTEGR ATING 1 by mouth every daily ASPIRIN 52922141633 Active Mitch Urbina DO Ac tive METOPROLOL TARTRATE 50 MG ORAL TABLET 1 by mouth twice daily METOPROLOL TARTRATE 30290374957 Active Mitch Urbina DO Active BACTRIM DS 800-160 MG ORAL TABLET 1 tab by mouth twice daily 201 10/19/09 BACTRIM DS 800-160 MG ORAL TABLET 385741 TRIMETHOPRIM-SULFAMETHOXAZOLE Inactive PROVIGIL 100 MG ORAL TABLET Take one by mouth daily 08/20/04 PROVIGIL 100 MG ORAL TABLET 779277 MODAFINIL Inactive FUROSEMIDE 40 MG ORAL TABLET 1 by mouth daily FUROSEMIDE 40 MG ORAL TABLET 854237 FUROSEMIDE Inactive KLOR-CON 20 MEQ ORAL PACKET Take one by mouth daily 09/10/08 KLOR- CON 20 MEQ ORAL PACKET 3245633 POTASSIUM CHLORIDE Inactive LISINOPRIL 5 MG ORAL TABLET 1 by mouth every day 11/17 LISINOPRIL 5 MG ORAL TABLET 147904 LISINOPRIL Inactive COLCRYS 0.6 MG ORAL TABLET 1 po q 6 hours prn gout pain COLCRYS 0.6 MG ORAL TABLET 309028 COLCHICINE Inactive JANUVIA 100 MG ORAL TABLET 1/2 by mouth every day 2011 JANUVIA 100 MG ORAL TABLET SITAGLIPTIN PHOSPHATE Inactive SIMVASTATIN 20 MG ORAL TABLET 1 tab daily at bedtime 2 SIMVASTATIN 20 MG ORAL TABLET 835578 SIMVASTATIN Inactive COUMADIN 6 MG ORAL TABLET 1 by mouth every other day 2 COUMADIN 6 MG ORAL TABLET 745916 WARFARIN SODIUM Inactive COUMADIN 5 MG ORAL TABLET 1 by mouth every other day 2 COUMADIN 5 MG ORAL TABLET 416961 WARFARIN SODIUM Inactive LISINOPRIL 20 MG ORAL TABLET 1 tab po at HS LISINOPRIL 20 MG ORAL TABLET 119437 LISINOPRIL Inactive LISINOPRIL-HYDROCHLOROTHIAZIDE 20-12.5 MG ORAL TABLET 1 tab by m outh daily LISINOPRIL-HYDROCHLOROTHIAZIDE 20-12.5 MG ORAL TABLET 408006 LISINOPRIL-HYDROCHLOROTHIAZIDE Inactive POLYTRIM 76563-8.1 UNIT/ML-% OPHTHALMIC SOLUTION 1 rui p in affected eye every 3 hours while awake x 7 days POLYTRIM 1000 0-0.1 UNIT/ML-% OPHTHALMIC SOLUTION 859017 POLYMYXIN B-TRIMETHOPRIM Inactive COUMADIN 4 MG ORAL TABLET 1 tablet daily COUMADIN 4 MG ORAL TABLET 217032 WARFARIN SODIUM Inactive CLONIDINE HCL 0.1 MG ORAL TABLET 1 po bid 7 days, then 1/2 t ab po bid 7 days CLONIDINE HCL 0.1 MG ORAL TABLET 795242 CLONIDIN E HCL Inactive ALLOPURINOL 300 MG ORAL TABLET Take 1 tablet by mouth daily 2012 ALLOPURINOL 300 MG ORAL TABLET 224702 ALLOPURINOL I nactive MECLIZINE HCL 25 MG ORAL TABLET 1 po tid 3 days, then 1/2 ta b tid 3 days MECLIZINE HCL 25 MG ORAL TABLET 075797 MECLIZINE HCL Inactive AMLODIPINE BESYLATE 5 MG ORAL TABLET 1 tablet by mouth daily 201 01/20/04 AMLODIPINE BESYLATE 5 MG ORAL TABLET 326194 AMLODIPINE BESYLATE Inactive KEFLEX 500 MG ORAL CAPSULE 1 po qid K EFLEX 500 MG ORAL CAPSULE 009230 CEPHALEXIN Inactive COLCRYS 0.6 MG ORAL TABLET 1 tab qid prn gout COLCRYS 0.6 MG ORAL TABLET 159396 COLCHICINE Inactive FAMOTIDINE 20 MG ORAL TABLET by mouth twice a day 2017 FAMOTIDINE 20 MG ORAL TABLET 564237 FAMOTIDINE Inactive GLIMEPIRIDE 2 MG ORAL TABLET 1 po BID GLIMEPIRIDE 2 MG ORAL TABLET 389783 GLIMEPIRIDE Inactive LOVENOX 100 MG/ML SUBCUTANEOUS SOLUTION One injection twice a da y LOVENOX 100 MG/ML SUBCUTANEOUS SOLUTION 198147 ENOXAPAR IN SODIUM Inactive Vital Signs Date [...] HGBA1C - Chemistry cholesterol, serum 136 mg/dL [phone]/12/06 triglyceride, serum, fasting 247 mg/dL 30-200 HDL cholesterol, serum 41 mg/dL 32-60 LDL cholesterol, serum 46 mg/dL 0-130 aspartate aminotransferase (SGOT), serum 22 U/L 15-37 alanine aminotransferase (SGPT), serum 30 U/L 12-78 bilirubin, serum, total 0.80 mg/dL 0.00-1.00 hemoglobin A1C, blood, as % of total hemoglobin 6.4 % 4.3-6.0 Encounters Code Encounter Date Provider Facility CPT-02403 Level 3 Est. Patient 18:25:53 CDT Mitch luis [facility] CPT-54325 Level 3 Est. Patient 19:43:34 CDT Mtich luis [facility] CPT-49834 Level 4 Est. Patient 09:30:18 CDT Mitch luis [facility] CPT-43960 Level 3 Est. Patient 15:10:14 CDT [facility] CPT-29145 Level 3 Est. Patient 15:03:46 CDT [facility] CPT-18922 Level 3 Est. Patient 14:21:06 CDT Mitch luis [facility] CPT-13613 Level 3 Est. Patient 14:52:06 CDT [facility] CPT-65148 Level 3 Est. Patient 09:34:30 TRANSPORTATION REFRIGERATION TECHNICIAN Mitch luis [facility] CPT-60077 Level 3 Est. Patient 09:37:15 CDT Mitch luis [facility] CPT-34747 Level 3 Est. Patient 17:01:00 TRANSPORTATION REFRIGERATION TECHNICIAN Mitch lius [facility] CPT-46566 Level 3 Est. Patient 13:53:19 TRANSPORTATION REFRIGERATION TECHNICIAN Mitch luis [facility] CPT-15795 Level 3 Est. Patient 19:19:37 TRANSPORTATION REFRIGERATION TECHNICIAN Mitch luis [facility] CPT-43606 Level 3 Est. Patient 13:25:53 TRANSPORTATION REFRIGERATION TECHNICIAN Tavo toure MD [facility] CPT-13506 Level 3 Est. Patient 18:17:28 CDT Mitch Arnol luis [facility] CPT-28159 Level 3 Est. Patient 15:22:57 CDT Mitch Arnol luis [facility] CPT-24314 Level 3 Est. Patient 18:21:50 CDT Mitch luis [facility] CPT-54100 Level 3 Est. Patient 18:20:38 CDT Mitch Arnol luis [facility] CPT-89817 Level 3 Est. Patient 15:37:55 CDT Mitch Ambrose Nona luis [facility] CPT-04572 Level 2 Est. Patient 15:54:44 CDT Carmine benton MD [facility] CPT-03700 Level 3 Est. Patient 21:46:01 TRANSPORTATION REFRIGERATION TECHNICIAN Mitch luis [facility] CPT-17748 Level 3 Est. Patient 22:15:50 CDT Mitch Arnol luis [facility] CPT-54805 Level 3 Est. Patient 10:48:15 CDT Mitch luis [facility] CPT-00702 Level 3 Est. Patient 23:20:57 CDT Tavo toure MD [facility] CPT-92820 Level 3 Est. Patient 16:26:13 CDT Mitch luis [facility] Procedures Code Procedure Name Date Entry Date Standard Desc ription CPT-JTINJ Asp/Joint Injection 18:47:02 CDT CPT-99531 Venipuncture Draw Fee 09:26:17 CDT CPT-19659 PT/INR - LAB USE ONLY 13:32:49 TRANSPORTATION REFRIGERATION TECHNICIAN CPT-86714 Venipuncture Draw Fee 13:32:49 TRANSPORTATION REFRIGERATION TECHNICIAN CPT-32374 PT/INR - LAB USE ONLY 10:34:49 TRANSPORTATION REFRIGERATION TECHNICIAN CPT-73599 Venipuncture Draw Fee 10:34:48 TRANSPORTATION REFRIGERATION TECHNICIAN CPT-30767 PT/INR - LAB USE ONLY 09:22:03 TRANSPORTATION REFRIGERATION TECHNICIAN CPT-44576 Venipuncture Draw Fee 09:22:02 TRANSPORTATION REFRIGERATION TECHNICIAN CPT-17303 Hemoccult IFOBT - LAB USE ONLY 10:27:22 CDT CPT-12589 Venipuncture Draw Fee 08:27:08 CDT CPT-16923 Liver Profile - LAB USE ONLY 08:27:07 CDT 2 CPT-68235 Microalbumin - LAB USE ONLY 08:27:07 CDT 20 25/05/09 CPT-95131 PT/INR - LAB USE ONLY 08:27:07 CDT CPT-53093 HGBA1C - LAB USE ONLY 08:27:07 CDT CPT-38409 CBC - LAB USE ONLY 08:27:07 CDT CPT-46759 Venipuncture Draw Fee 11:09:14 CDT CPT-89927 Venipuncture Draw Fee 08:32:21 TRANSPORTATION REFRIGERATION TECHNICIAN CPT-15792 Venipuncture Draw Fee 09:38:56 TRANSPORTATION REFRIGERATION TECHNICIAN CPT-13295 No Charge Offi Visit 21:36:07 CDT 1 CPT-62827 Venipuncture Draw Fee 10:13:28 TRANSPORTATION REFRIGERATION TECHNICIAN CPT-07686 Venipuncture Draw Fee 08:31:11 CDT CPT-57243 Aspir/Inject Med Joint 18:17:28 CDT CPT-81882 Venipuncture Draw Fee 10:13:30 CDT CPT-26162 Venipuncture Draw Fee 08:31:43 TRANSPORTATION REFRIGERATION TECHNICIAN CPT-JTINJ Joint Injection 18:34:50 CDT CPT-31508 Knee 3V 12:25:09 CDT CPT-59014 Venipuncture Draw Fee 12:15:57 CDT CPT-060 Medical Surveillance Exam 21:31:43 CDT 2011 CPT-89121 Venipuncture Draw Fee 08:32:05 TRANSPORTATION REFRIGERATION TECHNICIAN CPT-OV Office Visit 18:19:06 CDT
--- OUTSIDE RECORDS SUMMARY | 2020-01-18 13:40 | XMS REPORT | Clinical Summary ---
[...] and abscess of trunk SEROMA 998.13 Resolved Micth Urbina DO Se mario complicating a procedure [...] mouth twice daily f or diabetes GLIMEPIRIDE 90144537138 Active Mitch Urbina DO Active GLIMEPIRIDE 2 MG ORAL TABLET 1 po BID GLIMEPI RIDE 23977065332 No Longer Active Mitch Urbina DO Active AMLODIPINE BESYLATE 5 MG ORAL TABLET 1 tablet by mouth daily AMLODIPINE BESYLATE 27297992399 Active Mitch Urbina DO Active PROVIGIL 200 MG ORAL TABLET 1/2 tab po q day MODA FINIL 48184801463 Active Renee Oconnor SALES NEGOTIATOR Active FAMOTIDINE 20 MG ORAL TABLET by mouth twice a day 2017 FAMOTIDINE 06092462144 No Longer Active Mitch Urbina DO Active COLCRYS 0.6 MG ORAL TABLET 1 tab qid prn gout C OLCHICINE 46284951765 No Longer Active Mitch Urbina DO Active KEFLEX 500 MG ORAL CAPSULE 1 po qid CEPHALEXI N 71405796180 No Longer Active Mitch Urbina DO Active LOSARTAN POTASSIUM 100 MG ORAL TABLET 1 pill by mouth daily, for blood pressure LOSARTAN POTASSIUM 67475223036 Active Ana Ocampo Active AMLODIPINE BESYLATE 5 MG ORAL TABLET 1 tablet by mouth daily 201 01/20/04 AMLODIPINE BESYLATE 33180961479 No Longer Active Joe fulton APRN Active MITIGARE 0.6 MG ORAL CAPSULE 2 capsules at onset of go ut pain, then take one capsule at 1 hour if symptoms persist. COLCHICINE 59 270385858 Active Mitch Urbina DO Active COUMADIN 1 MG ORAL TABLET 2 tabs orally daily with the 5mg tab to equal 7mg daily WARFARIN SODIUM 12116129874 Active Mitch Urbina DO Active INVOKANA 100 MG ORAL TABLET 1 tablet orally daily CANAGLIFLOZIN 52058250436 Active Curly Coker MD Active MINOXIDIL 2.5 MG ORAL TABLET 1 tablet daily for high blood press ure MINOXIDIL 52257089731 Active Renee Elvin DE LA ROSA Active MECLIZINE HCL 25 MG ORAL TABLET 1 po tid 3 days, then 1/2 ta b tid 3 days MECLIZINE HCL 87847631674 No Longer Active Corey SEGURA Active ALLOPURINOL 300 MG ORAL TABLET Take 1 tablet by mouth daily 2012 ALLOPURINOL 24177836000 No Longer Active Corey SEGURA Active CLONIDINE HCL 0.1 MG ORAL TABLET 1 po bid 7 days, then 1/2 t ab po bid 7 days CLONIDINE HCL 77266889017 No Longer Active Corey SEGURA Active COUMADIN 5 MG ORAL TABLET 1 tab PO daily WARFAR IN SODIUM 06887834593 Active Mitch Urbina DO Active COUMADIN 4 MG ORAL TABLET 1 tablet daily WARFAR IN SODIUM 15580014708 No Longer Active Corey SEGURA Active POLYTRIM 32276-5.1 UNIT/ML-% OPHTHALMIC SOLUTION 1 rui p in affected eye every 3 hours while awake x 7 days POLYMYXIN B-TRIMETHOP RIM 83549882162 No Longer Active Corey SEGURA Active LOSARTAN POTASSIUM-HCTZ 100-12.5 MG ORAL TABLET 1 by m outh daily for high blood pressure LOSARTAN POTASSIUM-HCTZ 48984691236 No Longer A ctive Mitch Urbina DO Active LISINOPRIL-HYDROCHLOROTHIAZIDE 20-12.5 MG ORAL TABLET 1 tab by m outh daily LISINOPRIL-HYDROCHLOROTHIAZIDE 03153097933 No Longer Active Mitch Urbina DO Active LISINOPRIL 20 MG ORAL TABLET 1 tab po at HS LIS INOPRIL 18836592016 No Longer Active Mitch Urbina DO Active COUMADIN 5 MG ORAL TABLET 1 by mouth every other day 2 WARFARIN SODIUM 05279039751 No Longer Active Mitch Urbina DO Active COUMADIN 6 MG ORAL TABLET 1 by mouth every other day 2 WARFARIN SODIUM 22825435070 No Longer Active Mitch Urbina DO Active SIMVASTATIN 40 MG ORAL TABLET 1 tab daily at bedtime SIMVASTATIN 28485500370 Active Renee Oconnor LPN Active SIMVASTATIN 20 MG ORAL TABLET 1 tab daily at bedtime 2 SIMVASTATIN 42496703434 No Longer Active Mitch Urbina DO Active LOVENOX 100 MG/ML SUBCUTANEOUS SOLUTION One injection twice a da y ENOXAPARIN SODIUM 96264666831 No Longer Active Carmine Yusuf MD Active JANUVIA 50 MG ORAL TABLET Take one by mouth daily SITAGLIPTIN PHOSPHATE 76456179341 Active Renee Elvin DE LA ROSA Active JANUVIA 100 MG ORAL TABLET 1/2 by mouth every day 2011 SITAGLIPTIN PHOSPHATE 83449151409 No Longer Active Bijal Segal RN Acti ve METFORMIN HCL 500 MG ORAL TABLET 2 by mouth twice daily METFORMIN HCL 89256729397 No Longer Active Renee Oconnor LPN Active COLCRYS 0.6 MG ORAL TABLET 1 po q 6 hours prn gout pain COLCHICINE 20370354902 No Longer Active Camila Reese Active LISINOPRIL 5 MG ORAL TABLET 1 by mouth every day 11/17 LISINOPRIL 47961312721 No Longer Active Nguyen Perez Active KLOR-CON 20 MEQ ORAL PACKET Take one by mouth daily 20 09/10/08 POTASSIUM CHLORIDE 15672177404 No Longer Active Nguyen Perez Active FUROSEMIDE 40 MG ORAL TABLET 1 by mouth daily F UROSEMIDE 51505227529 No Longer Active Nguyen Perez Active PROVIGIL 100 MG ORAL TABLET Take one by mouth daily 08/20/04 MODAFINIL 28155699450 No Longer Active Mitch Urbina DO Active BACTRIM DS 800-160 MG ORAL TABLET 1 tab by mouth twice daily 201 10/19/09 TRIMETHOPRIM-SULFAMETHOXAZOLE 58317783600 No Longer Active Elian Hays MD Active ADULT ASPIRIN LOW STRENGTH 81 MG ORAL TABLET DISINTEGR ATING 1 by mouth every daily ASPIRIN 86874085533 Active Mitch Urbina DO Ac tive METOPROLOL TARTRATE 50 MG ORAL TABLET 1 by mouth twice daily METOPROLOL TARTRATE 50227823003 Active Mitch Urbina DO Active BACTRIM DS 800-160 MG ORAL TABLET 1 tab by mouth twice daily 201 10/19/09 BACTRIM DS 800-160 MG ORAL TABLET 169046 TRIMETHOPRIM-SULFAMETHOXAZOLE Inactive PROVIGIL 100 MG ORAL TABLET Take one by mouth daily 08/20/04 PROVIGIL 100 MG ORAL TABLET 539026 MODAFINIL Inactive FUROSEMIDE 40 MG ORAL TABLET 1 by mouth daily FUROSEMIDE 40 MG ORAL TABLET 446715 FUROSEMIDE Inactive KLOR-CON 20 MEQ ORAL PACKET Take one by mouth daily 09/10/08 KLOR- CON 20 MEQ ORAL PACKET 3205280 POTASSIUM CHLORIDE Inactive LISINOPRIL 5 MG ORAL TABLET 1 by mouth every day 11/17 LISINOPRIL 5 MG ORAL TABLET 970910 LISINOPRIL Inactive COLCRYS 0.6 MG ORAL TABLET 1 po q 6 hours prn gout pain COLCRYS 0.6 MG ORAL TABLET 283770 COLCHICINE Inactive JANUVIA 100 MG ORAL TABLET 1/2 by mouth every day 2011 JANUVIA 100 MG ORAL TABLET SITAGLIPTIN PHOSPHATE Inactive SIMVASTATIN 20 MG ORAL TABLET 1 tab daily at bedtime 2 SIMVASTATIN 20 MG ORAL TABLET 000673 SIMVASTATIN Inactive COUMADIN 6 MG ORAL TABLET 1 by mouth every other day 2 COUMADIN 6 MG ORAL TABLET 477554 WARFARIN SODIUM Inactive COUMADIN 5 MG ORAL TABLET 1 by mouth every other day 2 COUMADIN 5 MG ORAL TABLET 487535 WARFARIN SODIUM Inactive LISINOPRIL 20 MG ORAL TABLET 1 tab po at HS LISINOPRIL 20 MG ORAL TABLET 021512 LISINOPRIL Inactive LISINOPRIL-HYDROCHLOROTHIAZIDE 20-12.5 MG ORAL TABLET 1 tab by m outh daily LISINOPRIL-HYDROCHLOROTHIAZIDE 20-12.5 MG ORAL TABLET 599649 LISINOPRIL-HYDROCHLOROTHIAZIDE Inactive POLYTRIM 94078-8.1 UNIT/ML-% OPHTHALMIC SOLUTION 1 rui p in affected eye every 3 hours while awake x 7 days POLYTRIM 1000 0-0.1 UNIT/ML-% OPHTHALMIC SOLUTION 757473 POLYMYXIN B-TRIMETHOPRIM Inactive COUMADIN 4 MG ORAL TABLET 1 tablet daily COUMADIN 4 MG ORAL TABLET 605547 WARFARIN SODIUM Inactive CLONIDINE HCL 0.1 MG ORAL TABLET 1 po bid 7 days, then 1/2 t ab po bid 7 days CLONIDINE HCL 0.1 MG ORAL TABLET 523772 CLONIDIN E HCL Inactive ALLOPURINOL 300 MG ORAL TABLET Take 1 tablet by mouth daily 2012 ALLOPURINOL 300 MG ORAL TABLET 802526 ALLOPURINOL I nactive MECLIZINE HCL 25 MG ORAL TABLET 1 po tid 3 days, then 1/2 ta b tid 3 days MECLIZINE HCL 25 MG ORAL TABLET 929111 MECLIZINE HCL Inactive AMLODIPINE BESYLATE 5 MG ORAL TABLET 1 tablet by mouth daily 201 01/20/04 AMLODIPINE BESYLATE 5 MG ORAL TABLET 284296 AMLODIPINE BESYLATE Inactive KEFLEX 500 MG ORAL CAPSULE 1 po qid K EFLEX 500 MG ORAL CAPSULE 909260 CEPHALEXIN Inactive COLCRYS 0.6 MG ORAL TABLET 1 tab qid prn gout COLCRYS 0.6 MG ORAL TABLET 216582 COLCHICINE Inactive FAMOTIDINE 20 MG ORAL TABLET by mouth twice a day 2017 FAMOTIDINE 20 MG ORAL TABLET 314425 FAMOTIDINE Inactive GLIMEPIRIDE 2 MG ORAL TABLET 1 po BID GLIMEPIRIDE 2 MG ORAL TABLET 674635 GLIMEPIRIDE Inactive LOVENOX 100 MG/ML SUBCUTANEOUS SOLUTION One injection twice a da y LOVENOX 100 MG/ML SUBCUTANEOUS SOLUTION 633096 ENOXAPAR IN SODIUM Inactive Vital Signs Date [...] HGBA1C - Chemistry cholesterol, serum 136 mg/dL 102-075 6672/12/06 triglyceride, serum, fasting 247 mg/dL 30-200 HDL cholesterol, serum 41 mg/dL 32-60 LDL cholesterol, serum 46 mg/dL 0-130 aspartate aminotransferase (SGOT), serum 22 U/L 15-37 alanine aminotransferase (SGPT), serum 30 U/L 12-78 bilirubin, serum, total 0.80 mg/dL 0.00-1.00 hemoglobin A1C, blood, as % of total hemoglobin 6.4 % 4.3-6.0 Encounters Code Encounter Date Provider Facility CPT-41195 Level 3 Est. Patient 18:25:53 CDT Mitch luis [facility] CPT-51967 Level 3 Est. Patient 19:43:34 CDT Mitch luis [facility] CPT-94757 Level 4 Est. Patient 09:30:18 CDT Mitch luis [facility] CPT-08721 Level 3 Est. Patient 15:10:14 CDT Joe kamara [facility] [place] CPT-00707 Level 3 Est. Patient 15:03:46 CDT Joe kamara [facility] [place] [facility] [place] CPT-07652 Level 3 Est. Patient 14:21:06 CDT Mitch luis [facility] CPT-88843 Level 3 Est. Patient 14:52:06 CDT Joe kamara [facility] [place] [place] CPT-66107 Level 3 Est. Patient 09:34:30 [employer] Mitch luis [facility] CPT-21803 Level 3 Est. Patient 09:37:15 CDT Mitch luis [facility] CPT-66452 Level 3 Est. Patient 17:01:00 [employer] Mitch luis [facility] CPT-73101 Level 3 Est. Patient 13:53:19 [employer] Mitch luis [facility] CPT-05174 Level 3 Est. Patient 19:19:37 [employer] Mitch luis [facility] CPT-22048 Level 3 Est. Patient 13:25:53 [employer] Tavo toure MD [facility] CPT-95809 Level 3 Est. Patient 18:17:28 CDT Mitch Arnol luis [facility] CPT-68201 Level 3 Est. Patient 15:22:57 CDT Mitch Arnol luis [facility] CPT-77883 Level 3 Est. Patient 18:21:50 CDT Mitch luis [facility] CPT-35732 Level 3 Est. Patient 18:20:38 CDT Mitch Arnol luis [facility] CPT-56154 Level 3 Est. Patient 15:37:55 CDT Mitch Ambrose Nona luis [facility] CPT-61380 Level 2 Est. Patient 15:54:44 CDT Carmine benton MD [facility] CPT-51836 Level 3 Est. Patient 21:46:01 [employer] Mitch luis [facility] CPT-42413 Level 3 Est. Patient 22:15:50 CDT Mitch Arnol luis [facility] CPT-42575 Level 3 Est. Patient 10:48:15 CDT Mitch luis [facility] CPT-30875 Level 3 Est. Patient 23:20:57 CDT Tavo toure MD [facility] CPT-03688 Level 3 Est. Patient 16:26:13 CDT Mitch luis [facility] Procedures Code Procedure Name Date Entry Date Standard Desc ription CPT-JTINJ Asp/Joint Injection 18:47:02 CDT CPT-11182 Venipuncture Draw Fee 09:26:17 CDT CPT-78417 PT/INR - LAB USE ONLY 13:32:49 [employer] CPT-50352 Venipuncture Draw Fee 13:32:49 [employer] CPT-20150 PT/INR - LAB USE ONLY 10:34:49 [employer] CPT-87764 Venipuncture Draw Fee 10:34:48 [employer] CPT-81275 PT/INR - LAB USE ONLY 09:22:03 [employer] CPT-42614 Venipuncture Draw Fee 09:22:02 [employer] CPT-96611 Hemoccult IFOBT - LAB USE ONLY 10:27:22 CDT CPT-04619 Venipuncture Draw Fee 08:27:08 CDT CPT-23761 Liver Profile - LAB USE ONLY 08:27:07 CDT 2 CPT-43083 Microalbumin - LAB USE ONLY 08:27:07 CDT 20 25/05/09 CPT-95477 PT/INR - LAB USE ONLY 08:27:07 CDT CPT-06042 HGBA1C - LAB USE ONLY 08:27:07 CDT CPT-87022 CBC - LAB USE ONLY 08:27:07 CDT CPT-50206 Venipuncture Draw Fee 11:09:14 CDT CPT-35093 Venipuncture Draw Fee 08:32:21 [employer] CPT-20220 Venipuncture Draw Fee 09:38:56 [employer] CPT-10706 No Charge Offi Visit 21:36:07 CDT 1 CPT-06514 Venipuncture Draw Fee 10:13:28 [employer] CPT-39499 Venipuncture Draw Fee 08:31:11 CDT CPT-40317 Aspir/Inject Med Joint 18:17:28 CDT CPT-93197 Venipuncture Draw Fee 10:13:30 CDT CPT-49422 Venipuncture Draw Fee 08:31:43 [employer] CPT-JTINJ Joint Injection 18:34:50 CDT CPT-44219 Knee 3V 12:25:09 CDT CPT-75283 Venipuncture Draw Fee 12:15:57 CDT CPT-060 Medical Surveillance Exam 21:31:43 CDT 2011 CPT-46839 Venipuncture Draw Fee 08:32:05 [employer] CPT-OV Office Visit 18:19:06 CDT
--- OUTSIDE RECORDS SUMMARY | 2020-01-18 13:41 | XMS REPORT | Clinical Summary ---
[...] DO 10/23 GOUT, RIGHT WRIST ICD-274.9 Inactive iMtch Ambrose Le e DO BRUISE ICD-924.9 Inactive [...] mouth twice daily f or diabetes GLIMEPIRIDE 63621390584 Active Mitch Urbina DO Active GLIMEPIRIDE 2 MG ORAL TABLET 1 po BID GLIMEPI RIDE 74792626024 No Longer Active Mitch Urbina DO Active AMLODIPINE BESYLATE 5 MG ORAL TABLET 1 tablet by mouth daily AMLODIPINE BESYLATE 98309153574 Active Mitch Urbina DO Active PROVIGIL 200 MG ORAL TABLET 1/2 tab po q day MODA FINIL 67623639814 Active Renee Oconnor LPN Active FAMOTIDINE 20 MG ORAL TABLET by mouth twice a day 2017 FAMOTIDINE 05721837643 No Longer Active Mitch Urbina DO Active COLCRYS 0.6 MG ORAL TABLET 1 tab qid prn gout C OLCHICINE 60728911913 No Longer Active Mitch Urbina DO Active KEFLEX 500 MG ORAL CAPSULE 1 po qid CEPHALEXI N 30683147773 No Longer Active Mitch Urbina DO Active LOSARTAN POTASSIUM 100 MG ORAL TABLET 1 pill by mouth daily, for blood pressure LOSARTAN POTASSIUM 59934772555 Active Ana Ocampo Active AMLODIPINE BESYLATE 5 MG ORAL TABLET 1 tablet by mouth daily 201 01/20/04 AMLODIPINE BESYLATE 87077829606 No Longer Active Joe fulton APRN Active MITIGARE 0.6 MG ORAL CAPSULE 2 capsules at onset of go ut pain, then take one capsule at 1 hour if symptoms persist. COLCHICINE 59 764885364 Active Mitch Urbina DO Active COUMADIN 1 MG ORAL TABLET 2 tabs orally daily with the 5mg tab to equal 7mg daily WARFARIN SODIUM 66740369461 Active Mitch Arnol Urbina DO Active INVOKANA 100 MG ORAL TABLET 1 tablet orally daily CANAGLIFLOZIN 39286183753 Active Curly Coker MD Active MINOXIDIL 2.5 MG ORAL TABLET 1 tablet daily for high blood press ure MINOXIDIL 56422303201 Active Renee Elvin DE LA ROSA Active MECLIZINE HCL 25 MG ORAL TABLET 1 po tid 3 days, then 1/2 ta b tid 3 days MECLIZINE HCL 36482361534 No Longer Active Corey SEGURA Active ALLOPURINOL 300 MG ORAL TABLET Take 1 tablet by mouth daily 2012 ALLOPURINOL 72391482180 No Longer Active Corey SEGURA Active CLONIDINE HCL 0.1 MG ORAL TABLET 1 po bid 7 days, then 1/2 t ab po bid 7 days CLONIDINE HCL 24897172617 No Longer Active Corey SEGURA Active COUMADIN 5 MG ORAL TABLET 1 tab PO daily WARFAR IN SODIUM 21446446300 Active Mitch Urbina DO Active COUMADIN 4 MG ORAL TABLET 1 tablet daily WARFAR IN SODIUM 58598070344 No Longer Active Corey SEGURA Active POLYTRIM 67839-5.1 UNIT/ML-% OPHTHALMIC SOLUTION 1 rui p in affected eye every 3 hours while awake x 7 days POLYMYXIN B-TRIMETHOP RIM 81768772032 No Longer Active Corey SEGURA Active LOSARTAN POTASSIUM-HCTZ 100-12.5 MG ORAL TABLET 1 by m outh daily for high blood pressure LOSARTAN POTASSIUM-HCTZ 30617845589 No Longer A ctive Mitch Urbina DO Active LISINOPRIL-HYDROCHLOROTHIAZIDE 20-12.5 MG ORAL TABLET 1 tab by m outh daily LISINOPRIL-HYDROCHLOROTHIAZIDE 87256876885 No Longer Active Mitch Urbina DO Active LISINOPRIL 20 MG ORAL TABLET 1 tab po at HS LIS INOPRIL 73222989025 No Longer Active Mitch Urbina DO Active COUMADIN 5 MG ORAL TABLET 1 by mouth every other day 2 WARFARIN SODIUM 84613260872 No Longer Active Mitch Urbina DO Active COUMADIN 6 MG ORAL TABLET 1 by mouth every other day 2 WARFARIN SODIUM 85562130589 No Longer Active Mitch Urbina DO Active SIMVASTATIN 40 MG ORAL TABLET 1 tab daily at bedtime SIMVASTATIN 31318688883 Active Renee Oconnor LPN Active SIMVASTATIN 20 MG ORAL TABLET 1 tab daily at bedtime 2 SIMVASTATIN 15134215934 No Longer Active Mitch Urbina DO Active LOVENOX 100 MG/ML SUBCUTANEOUS SOLUTION One injection twice a da y ENOXAPARIN SODIUM 76527665223 No Longer Active Carmine Yusuf MD Active JANUVIA 50 MG ORAL TABLET Take one by mouth daily SITAGLIPTIN PHOSPHATE 96357690282 Active Renee Elvin DE LA ROSA Active JANUVIA 100 MG ORAL TABLET 1/2 by mouth every day 2011 SITAGLIPTIN PHOSPHATE 31444851473 No Longer Active Bijal Segal RN Acti ve METFORMIN HCL 500 MG ORAL TABLET 2 by mouth twice daily METFORMIN HCL 50220789020 No Longer Active Renee Oconnor LPN Active COLCRYS 0.6 MG ORAL TABLET 1 po q 6 hours prn gout pain COLCHICINE 58602557313 No Longer Active Camila Reese Active LISINOPRIL 5 MG ORAL TABLET 1 by mouth every day 11/17 LISINOPRIL 37645206698 No Longer Active Nguyen Perez Active KLOR-CON 20 MEQ ORAL PACKET Take one by mouth daily 20 09/10/08 POTASSIUM CHLORIDE 49362788112 No Longer Active Nguyen Perez Active FUROSEMIDE 40 MG ORAL TABLET 1 by mouth daily F UROSEMIDE 30335187739 No Longer Active Nguyenmolly Perez Active PROVIGIL 100 MG ORAL TABLET Take one by mouth daily 08/20/04 MODAFINIL 91496446989 No Longer Active Mitch Urbina DO Active BACTRIM DS 800-160 MG ORAL TABLET 1 tab by mouth twice daily 201 10/19/09 TRIMETHOPRIM-SULFAMETHOXAZOLE 60347279405 No Longer Active Elian Hays MD Active ADULT ASPIRIN LOW STRENGTH 81 MG ORAL TABLET DISINTEGR ATING 1 by mouth every daily ASPIRIN 59002461188 Active Mitch Urbina DO Ac tive METOPROLOL TARTRATE 50 MG ORAL TABLET 1 by mouth twice daily METOPROLOL TARTRATE 01471824688 Active Mitch Urbina DO Active BACTRIM DS 800-160 MG ORAL TABLET 1 tab by mouth twice daily 201 10/19/09 BACTRIM DS 800-160 MG ORAL TABLET 797241 TRIMETHOPRIM-SULFAMETHOXAZOLE Inactive PROVIGIL 100 MG ORAL TABLET Take one by mouth daily 08/20/04 PROVIGIL 100 MG ORAL TABLET 273133 MODAFINIL Inactive FUROSEMIDE 40 MG ORAL TABLET 1 by mouth daily FUROSEMIDE 40 MG ORAL TABLET 406978 FUROSEMIDE Inactive KLOR-CON 20 MEQ ORAL PACKET Take one by mouth daily 09/10/08 KLOR- CON 20 MEQ ORAL PACKET 5551332 POTASSIUM CHLORIDE Inactive LISINOPRIL 5 MG ORAL TABLET 1 by mouth every day 11/17 LISINOPRIL 5 MG ORAL TABLET 120887 LISINOPRIL Inactive COLCRYS 0.6 MG ORAL TABLET 1 po q 6 hours prn gout pain COLCRYS 0.6 MG ORAL TABLET 395088 COLCHICINE Inactive JANUVIA 100 MG ORAL TABLET 1/2 by mouth every day 2011 JANUVIA 100 MG ORAL TABLET SITAGLIPTIN PHOSPHATE Inactive SIMVASTATIN 20 MG ORAL TABLET 1 tab daily at bedtime 2 SIMVASTATIN 20 MG ORAL TABLET 830130 SIMVASTATIN Inactive COUMADIN 6 MG ORAL TABLET 1 by mouth every other day 2 COUMADIN 6 MG ORAL TABLET 404858 WARFARIN SODIUM Inactive COUMADIN 5 MG ORAL TABLET 1 by mouth every other day 2 COUMADIN 5 MG ORAL TABLET 117302 WARFARIN SODIUM Inactive LISINOPRIL 20 MG ORAL TABLET 1 tab po at HS LISINOPRIL 20 MG ORAL TABLET 733233 LISINOPRIL Inactive LISINOPRIL-HYDROCHLOROTHIAZIDE 20-12.5 MG ORAL TABLET 1 tab by m outh daily LISINOPRIL-HYDROCHLOROTHIAZIDE 20-12.5 MG ORAL TABLET 599520 LISINOPRIL-HYDROCHLOROTHIAZIDE Inactive POLYTRIM 05240-7.1 UNIT/ML-% OPHTHALMIC SOLUTION 1 rui p in affected eye every 3 hours while awake x 7 days POLYTRIM 1000 0-0.1 UNIT/ML-% OPHTHALMIC SOLUTION 843301 POLYMYXIN B-TRIMETHOPRIM Inactive COUMADIN 4 MG ORAL TABLET 1 tablet daily COUMADIN 4 MG ORAL TABLET 202795 WARFARIN SODIUM Inactive CLONIDINE HCL 0.1 MG ORAL TABLET 1 po bid 7 days, then 1/2 t ab po bid 7 days CLONIDINE HCL 0.1 MG ORAL TABLET 474807 CLONIDIN E HCL Inactive ALLOPURINOL 300 MG ORAL TABLET Take 1 tablet by mouth daily 2012 ALLOPURINOL 300 MG ORAL TABLET 536157 ALLOPURINOL I nactive MECLIZINE HCL 25 MG ORAL TABLET 1 po tid 3 days, then 1/2 ta b tid 3 days MECLIZINE HCL 25 MG ORAL TABLET 659983 MECLIZINE HCL Inactive AMLODIPINE BESYLATE 5 MG ORAL TABLET 1 tablet by mouth daily 201 01/20/04 AMLODIPINE BESYLATE 5 MG ORAL TABLET 445514 AMLODIPINE BESYLATE Inactive KEFLEX 500 MG ORAL CAPSULE 1 po qid K EFLEX 500 MG ORAL CAPSULE 885269 CEPHALEXIN Inactive COLCRYS 0.6 MG ORAL TABLET 1 tab qid prn gout COLCRYS 0.6 MG ORAL TABLET 396274 COLCHICINE Inactive FAMOTIDINE 20 MG ORAL TABLET by mouth twice a day 2017 FAMOTIDINE 20 MG ORAL TABLET 123264 FAMOTIDINE Inactive GLIMEPIRIDE 2 MG ORAL TABLET 1 po BID GLIMEPIRIDE 2 MG ORAL TABLET 806865 GLIMEPIRIDE Inactive LOVENOX 100 MG/ML SUBCUTANEOUS SOLUTION One injection twice a da y LOVENOX 100 MG/ML SUBCUTANEOUS SOLUTION 822866 ENOXAPAR IN SODIUM Inactive Vital Signs Date [...] 247 mg/dL 30-200 cholesterol, serum 136 mg/dL 648-507 0132/12/06 alanine aminotransferase (SGPT), serum 30 U/L 12-78 bilirubin, serum, total 0.80 mg/dL 0.00-1.00 hemoglobin A1C, blood, as % of total hemoglobin 6.4 % 4.3-6.0 Encounters Code Encounter Date Provider Facility CPT-20483 Level 3 Est. Patient 18:25:53 CDT Mitch luis [facility] CPT-17239 Level 3 Est. Patient 19:43:34 CDT Mitch luis [facility] CPT-72284 Level 4 Est. Patient 09:30:18 CDT Mitch luis [facility] CPT-53226 Level 3 Est. Patient 15:10:14 CDT Joe kamara [facility] CPT-11732 Level 3 Est. Patient 15:03:46 CDT Joe kamara [facility] CPT-10081 Level 3 Est. Patient 14:21:06 CDT Mitch luis [facility] CPT-52598 Level 3 Est. Patient 14:52:06 CDT Joe kamara [facility] CPT-68171 Level 3 Est. 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 Patient 09:37:15 CDT Mitch luis [facility] CPT-77432 Level 3 Est. Patient 17:01:00 LATHE MACHINE OPERATOR Mitch luis [facility] CPT-81699 Level 3 Est. Patient 13:53:19 LATHE MACHINE OPERATOR Mitch luis [facility] CPT-60800 Level 3 Est. Patient 19:19:37 LATHE MACHINE OPERATOR Mitch luis [facility] CPT-84831 Level 3 Est. Patient 13:25:53 LATHE MACHINE OPERATOR Tavo toure MD [facility] CPT-74514 Level 3 Est. Patient 18:17:28 CDT Mitch Arnol luis [facility] CPT-76420 Level 3 Est. Patient 15:22:57 CDT Mitch Arnol luis [facility] CPT-44700 Level 3 Est. Patient 18:21:50 CDT Mitch luis [facility] CPT-17868 Level 3 Est. Patient 18:20:38 CDT Mitch Arnol luis [facility] CPT-56664 Level 3 Est. Patient 15:37:55 CDT Mitch Arnol luis [facility] CPT-24443 Level 2 Est. Patient 15:54:44 CDT Carmine benton MD [facility] CPT-42268 Level 3 Est. Patient 21:46:01 LATHE MACHINE OPERATOR Mitch luis [facility] CPT-93881 Level 3 Est. Patient 22:15:50 CDT Mitch Arnol luis [facility] CPT-51071 Level 3 Est. Patient 10:48:15 CDT Mitch luis [facility] CPT-54895 Level 3 Est. Patient 23:20:57 CDT Tavo toure MD [facility] CPT-34842 Level 3 Est. Patient 16:26:13 CDT Mitch luis [facility] Procedures Code Procedure Name Date Entry Date Standard Desc ription CPT-JTINJ Asp/Joint Injection 18:47:02 CDT CPT-81125 Venipuncture Draw Fee 09:26:17 CDT CPT-94471 PT/INR - LAB USE ONLY 13:32:49 LATHE MACHINE OPERATOR CPT-65292 Venipuncture Draw Fee 13:32:49 LATHE MACHINE OPERATOR CPT-37130 PT/INR - LAB USE ONLY 10:34:49 LATHE MACHINE OPERATOR CPT-72468 Venipuncture Draw Fee 10:34:48 LATHE MACHINE OPERATOR CPT-72815 PT/INR - LAB USE ONLY 09:22:03 LATHE MACHINE OPERATOR CPT-36306 Venipuncture Draw Fee 09:22:02 LATHE MACHINE OPERATOR CPT-68469 Hemoccult IFOBT - LAB USE ONLY 10:27:22 CDT CPT-56767 Venipuncture Draw Fee 08:27:08 CDT CPT-01495 Liver Profile - LAB USE ONLY 08:27:07 CDT 2 CPT-79176 Microalbumin - LAB USE ONLY 08:27:07 CDT 20 25/05/09 CPT-70294 PT/INR - LAB USE ONLY 08:27:07 CDT CPT-24899 HGBA1C - LAB USE ONLY 08:27:07 CDT CPT-71201 CBC - LAB USE ONLY 08:27:07 CDT CPT-23898 Venipuncture Draw Fee 11:09:14 CDT CPT-46861 Venipuncture Draw Fee 08:32:21 LATHE MACHINE OPERATOR CPT-14663 Venipuncture Draw Fee 09:38:56 LATHE MACHINE OPERATOR CPT-68111 No Charge Offi Visit 21:36:07 CDT 1 CPT-62701 Venipuncture Draw Fee 10:13:28 LATHE MACHINE OPERATOR CPT-51405 Venipuncture Draw Fee 08:31:11 CDT CPT-82540 Aspir/Inject Med Joint 18:17:28 CDT CPT-74572 Venipuncture Draw Fee 10:13:30 CDT CPT-43610 Venipuncture Draw Fee 08:31:43 LATHE MACHINE OPERATOR CPT-JTINJ Joint Injection 18:34:50 CDT CPT-96766 Knee 3V 12:25:09 CDT CPT-30868 Venipuncture Draw Fee 12:15:57 CDT CPT-060 Medical Surveillance Exam 21:31:43 CDT 2011 CPT-12450 Venipuncture Draw Fee 08:32:05 LATHE MACHINE OPERATOR CPT-OV Office Visit 18:19:06 CDT
--- OUTSIDE RECORDS SUMMARY | 2020-01-18 13:41 | XMS REPORT | Clinical Summary ---
[...] Mitch Urbina DO EDEMA ICD-782.3 Inactive Mitch Urbnia DO DIZZINESS ICD-780.4 Inactive Mitch Urbina DO [...] Instructions Start Date Stop Date Generic Name [facility] Status Provider Patient Instruction GLIMEPIRIDE 4 MG ORAL TABLET 1 tablet by mouth twice daily f or diabetes GLIMEPIRIDE 14743435977 Active Mitch Urbina DO Active GLIMEPIRIDE 2 MG ORAL TABLET 1 po BID GLIMEPI RIDE 75994484922 No Longer Active Mitch Urbina DO Active AMLODIPINE BESYLATE 5 MG ORAL TABLET 1 tablet by mouth daily AMLODIPINE BESYLATE 74960216995 Active Mitch Urbina DO Active PROVIGIL 200 MG ORAL TABLET 1/2 tab po q day MODA FINIL 32460015597 Active Renee Oconnor 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 FAMOTIDINE 20 MG ORAL TABLET by mouth twice a day 2017 FAMOTIDINE 44471776596 No Longer Active Mitch Urbina DO Active COLCRYS 0.6 MG ORAL TABLET 1 tab qid prn gout C OLCHICINE 79241365872 No Longer Active Mitch Urbina DO Active KEFLEX 500 MG ORAL CAPSULE 1 po qid CEPHALEXI N 80356209833 No Longer Active Mitch Urbina DO Active LOSARTAN POTASSIUM 100 MG ORAL TABLET 1 pill by mouth daily, for blood pressure LOSARTAN POTASSIUM 59262284504 Active Ana Ocampo Active AMLODIPINE BESYLATE 5 MG ORAL TABLET 1 tablet by mouth daily 201 01/20/04 AMLODIPINE BESYLATE 39141413334 No Longer Active Joe fulton APRN Active MITIGARE 0.6 MG ORAL CAPSULE 2 capsules at onset of go ut pain, then take one capsule at 1 hour if symptoms persist. COLCHICINE 59 702679203 Active Mitch Urbina DO Active COUMADIN 1 MG ORAL TABLET 2 tabs orally daily with the 5mg tab to equal 7mg daily WARFARIN SODIUM 16786756646 Active Mitch Urbina DO Active INVOKANA 100 MG ORAL TABLET 1 tablet orally daily CANAGLIFLOZIN 50118418684 Active Ana Ocampo Active MINOXIDIL 2.5 MG ORAL TABLET 1 tablet daily for high blood press ure MINOXIDIL 55855562144 Active Renee Quirogamonserrat DE LA ROSA Active MECLIZINE HCL 25 MG ORAL TABLET 1 po tid 3 days, then 1/2 ta b tid 3 days MECLIZINE HCL 88601636545 No Longer Active Corey SEGURA Active ALLOPURINOL 300 MG ORAL TABLET Take 1 tablet by mouth daily 2012 ALLOPURINOL 35736211857 No Longer Active Corey SEGURA Active CLONIDINE HCL 0.1 MG ORAL TABLET 1 po bid 7 days, then 1/2 t ab po bid 7 days CLONIDINE HCL 78570159341 No Longer Active Corey SEGURA Active COUMADIN 5 MG ORAL TABLET 1 tab PO daily WARFAR IN SODIUM 07143142270 Active Mitch Urbina DO Active COUMADIN 4 MG ORAL TABLET 1 tablet daily WARFAR IN SODIUM 11121551350 No Longer Active Corey SEGURA Active POLYTRIM 92882-4.1 UNIT/ML-% OPHTHALMIC SOLUTION 1 rui p in affected eye every 3 hours while awake x 7 days POLYMYXIN B-TRIMETHOP RIM 88662829450 No Longer Active Corey SEGURA Active LOSARTAN POTASSIUM-HCTZ 100-12.5 MG ORAL TABLET 1 by m outh daily for high blood pressure LOSARTAN POTASSIUM-HCTZ 58270534134 No Longer A ctive Mitch Urbina DO Active LISINOPRIL-HYDROCHLOROTHIAZIDE 20-12.5 MG ORAL TABLET 1 tab by m outh daily LISINOPRIL-HYDROCHLOROTHIAZIDE 29393326585 No Longer Active Mitch Urbina DO Active LISINOPRIL 20 MG ORAL TABLET 1 tab po at HS LIS INOPRIL 31921066927 No Longer Active Mitch Urbina DO Active COUMADIN 5 MG ORAL TABLET 1 by mouth every other day 2 WARFARIN SODIUM 40100343499 No Longer Active Mitch Urbina DO Active COUMADIN 6 MG ORAL TABLET 1 by mouth every other day 2 WARFARIN SODIUM 80917593227 No Longer Active Mitch Urbina DO Active SIMVASTATIN 40 MG ORAL TABLET 1 tab daily at bedtime SIMVASTATIN 66951573513 Active Renee Oconnor LPN Active SIMVASTATIN 20 MG ORAL TABLET 1 tab daily at bedtime 2 SIMVASTATIN 24564560544 No Longer Active Mitch Urbina DO Active LOVENOX 100 MG/ML SUBCUTANEOUS SOLUTION One injection twice a da y ENOXAPARIN SODIUM 88254581964 No Longer Active Carmine Yusuf MD Active JANUVIA 50 MG ORAL TABLET Take one by mouth daily SITAGLIPTIN PHOSPHATE 80375935733 Active Renee Elvin DE LA ROSA Active JANUVIA 100 MG ORAL TABLET 1/2 by mouth every day 2011 SITAGLIPTIN PHOSPHATE 70431802321 No Longer Active Bijal Segal RN Acti ve METFORMIN HCL 500 MG ORAL TABLET 2 by mouth twice daily METFORMIN HCL 61239403956 No Longer Active Renee Oconnor LPN Active COLCRYS 0.6 MG ORAL TABLET 1 po q 6 hours prn gout pain COLCHICINE 47122593218 No Longer Active Camila Reese Active LISINOPRIL 5 MG ORAL TABLET 1 by mouth every day 11/17 LISINOPRIL 63249399604 No Longer Active Nguyen Perez Active KLOR-CON 20 MEQ ORAL PACKET Take one by mouth daily 20 09/10/08 POTASSIUM CHLORIDE 25764822610 No Longer Active Nguyen Perez Active FUROSEMIDE 40 MG ORAL TABLET 1 by mouth daily F UROSEMIDE 68424972360 No Longer Active Nguyen Perez Active PROVIGIL 100 MG ORAL TABLET Take one by mouth daily 08/20/04 MODAFINIL 09355302053 No Longer Active Mitch Urbina DO Active BACTRIM DS 800-160 MG ORAL TABLET 1 tab by mouth twice daily 201 10/19/09 TRIMETHOPRIM-SULFAMETHOXAZOLE 86318059429 No Longer Active Elian Hays MD Active ADULT ASPIRIN LOW STRENGTH 81 MG ORAL TABLET DISINTEGR ATING 1 by mouth every daily ASPIRIN 42448835096 Active Mitch Urbina DO Ac tive METOPROLOL TARTRATE 50 MG ORAL TABLET 1 by mouth twice daily METOPROLOL TARTRATE 40303892764 Active Ana Ocampo Activ e BACTRIM DS 800-160 MG ORAL TABLET 1 tab by mouth twice daily 201 10/19/09 BACTRIM DS 800-160 MG ORAL TABLET 321738 TRIMETHOPRIM-SULFAMETHOXAZOLE Inactive PROVIGIL 100 MG ORAL TABLET Take one by mouth daily 08/20/04 PROVIGIL 100 MG ORAL TABLET 186066 MODAFINIL Inactive FUROSEMIDE 40 MG ORAL TABLET 1 by mouth daily FUROSEMIDE 40 MG ORAL TABLET 024226 FUROSEMIDE Inactive KLOR-CON 20 MEQ ORAL PACKET Take one by mouth daily 09/10/08 KLOR- CON 20 MEQ ORAL PACKET 5046753 POTASSIUM CHLORIDE Inactive LISINOPRIL 5 MG ORAL TABLET 1 by mouth every day 11/17 LISINOPRIL 5 MG ORAL TABLET 816914 LISINOPRIL Inactive COLCRYS 0.6 MG ORAL TABLET 1 po q 6 hours prn gout pain COLCRYS 0.6 MG ORAL TABLET 450359 COLCHICINE Inactive JANUVIA 100 MG ORAL TABLET 1/2 by mouth every day 2011 JANUVIA 100 MG ORAL TABLET SITAGLIPTIN PHOSPHATE Inactive SIMVASTATIN 20 MG ORAL TABLET 1 tab daily at bedtime 2 SIMVASTATIN 20 MG ORAL TABLET 821995 SIMVASTATIN Inactive COUMADIN 6 MG ORAL TABLET 1 by mouth every other day 2 COUMADIN 6 MG ORAL TABLET 621195 WARFARIN SODIUM Inactive COUMADIN 5 MG ORAL TABLET 1 by mouth every other day 2 COUMADIN 5 MG ORAL TABLET 179249 WARFARIN SODIUM Inactive LISINOPRIL 20 MG ORAL TABLET 1 tab po at HS LISINOPRIL 20 MG ORAL TABLET 530924 LISINOPRIL Inactive LISINOPRIL-HYDROCHLOROTHIAZIDE 20-12.5 MG ORAL TABLET 1 tab by m outh daily LISINOPRIL-HYDROCHLOROTHIAZIDE 20-12.5 MG ORAL TABLET 754365 LISINOPRIL-HYDROCHLOROTHIAZIDE Inactive POLYTRIM 83305-3.1 UNIT/ML-% OPHTHALMIC SOLUTION 1 rui p in affected eye every 3 hours while awake x 7 days POLYTRIM 1000 0-0.1 UNIT/ML-% OPHTHALMIC SOLUTION 525990 POLYMYXIN B-TRIMETHOPRIM Inactive COUMADIN 4 MG ORAL TABLET 1 tablet daily COUMADIN 4 MG ORAL TABLET 581979 WARFARIN SODIUM Inactive CLONIDINE HCL 0.1 MG ORAL TABLET 1 po bid 7 days, then 1/2 t ab po bid 7 days CLONIDINE HCL 0.1 MG ORAL TABLET 888037 CLONIDIN E HCL Inactive ALLOPURINOL 300 MG ORAL TABLET Take 1 tablet by mouth daily 2012 ALLOPURINOL 300 MG ORAL TABLET 449661 ALLOPURINOL I nactive MECLIZINE HCL 25 MG ORAL TABLET 1 po tid 3 days, then 1/2 ta b tid 3 days MECLIZINE HCL 25 MG ORAL TABLET 448432 MECLIZINE HCL Inactive AMLODIPINE BESYLATE 5 MG ORAL TABLET 1 tablet by mouth daily 201 01/20/04 AMLODIPINE BESYLATE 5 MG ORAL TABLET 084324 AMLODIPINE BESYLATE Inactive KEFLEX 500 MG ORAL CAPSULE 1 po qid K EFLEX 500 MG ORAL CAPSULE 422972 CEPHALEXIN Inactive COLCRYS 0.6 MG ORAL TABLET 1 tab qid prn gout COLCRYS 0.6 MG ORAL TABLET 730675 COLCHICINE Inactive FAMOTIDINE 20 MG ORAL TABLET by mouth twice a day 2017 FAMOTIDINE 20 MG ORAL TABLET 215497 FAMOTIDINE Inactive GLIMEPIRIDE 2 MG ORAL TABLET 1 po BID GLIMEPIRIDE 2 MG ORAL TABLET 172285 GLIMEPIRIDE Inactive LOVENOX 100 MG/ML SUBCUTANEOUS SOLUTION One injection twice a da y LOVENOX 100 MG/ML SUBCUTANEOUS SOLUTION 893083 ENOXAPAR IN SODIUM Inactive Vital Signs Date [...] HGBA1C - Chemistry cholesterol, serum 136 mg/dL 519-943 5390/12/06 triglyceride, serum, fasting 247 mg/dL 30-200 HDL cholesterol, serum 41 mg/dL 32-60 LDL cholesterol, serum 46 mg/dL 0-130 aspartate aminotransferase (SGOT), serum 22 U/L 15-37 alanine aminotransferase (SGPT), serum 30 U/L 12-78 bilirubin, serum, total 0.80 mg/dL 0.00-1.00 hemoglobin A1C, blood, as % of total hemoglobin 6.4 % 4.3-6.0 Encounters Code Encounter Date Provider Facility CPT-76093 Level 3 Est. Patient 18:25:53 CDT Mitch luis [facility] CPT-22163 Level 3 Est. Patient 19:43:34 CDT Mitch luis [facility] CPT-02008 Level 4 Est. Patient 09:30:18 CDT Mitch luis [facility] CPT-84149 Level 3 Est. Patient 15:10:14 CDT Joe kamara [facility] CPT-32979 Level 3 Est. Patient 15:03:46 CDT Joe kamara [facility] CPT-04085 Level 3 Est. Patient 14:21:06 CDT Mitch Arnol Nona luis [facility] CPT-18564 Level 3 Est. Patient 14:52:06 CDT Joe kamara [facility] CPT-69072 Level 3 Est. Patient 09:34:30 SLING OPERATOR Mitch Arnol Nona luis [facility] CPT-95462 Level 3 Est. Patient 09:37:15 CDT Mitch luis [facility] CPT-48992 Level 3 Est. Patient 17:01:00 SLING OPERATOR Mitch luis [facility] CPT-85542 Level 3 Est. Patient 13:53:19 SLING OPERATOR Mitch luis [facility] CPT-05789 Level 3 Est. Patient 19:19:37 SLING OPERATOR Mitch luis [facility] CPT-02737 Level 3 Est. Patient 13:25:53 SLING OPERATOR Tavo toure MD [facility] CPT-50186 Level 3 Est. Patient 18:17:28 CDT Mitch Arnol luis [facility] CPT-42143 Level 3 Est. Patient 15:22:57 CDT Mitch Arnol luis [facility] CPT-66234 Level 3 Est. Patient 18:21:50 CDT Mitch luis [facility] CPT-07701 Level 3 Est. Patient 18:20:38 CDT Mitch Arnol luis [facility] CPT-05667 Level 3 Est. Patient 15:37:55 CDT Mitch Arnol luis [facility] CPT-75456 Level 2 Est. Patient 15:54:44 CDT Carmine benton MD [facility] CPT-63176 Level 3 Est. Patient 21:46:01 SLING OPERATOR Mitch luis [facility] CPT-70571 Level 3 Est. Patient 22:15:50 CDT Mitch luis [facility] CPT-43264 Level 3 Est. Patient 10:48:15 CDT Mitch luis [facility] CPT-46321 Level 3 Est. Patient 23:20:57 CDT Tavo toure MD [facility] CPT-29456 Level 3 Est. Patient 16:26:13 CDT Mitch luis [facility] Procedures Code Procedure Name Date Entry Date Standard Desc ription CPT-JTINJ Asp/Joint Injection 18:47:02 CDT CPT-25492 Venipuncture Draw Fee 09:26:17 CDT CPT-58721 PT/INR - LAB USE ONLY 13:32:49 SLING OPERATOR CPT-19705 Venipuncture Draw Fee 13:32:49 SLING OPERATOR CPT-88431 PT/INR - LAB USE ONLY 10:34:49 SLING OPERATOR CPT-31123 Venipuncture Draw Fee 10:34:48 SLING OPERATOR CPT-51783 PT/INR - LAB USE ONLY 09:22:03 SLING OPERATOR CPT-83420 Venipuncture Draw Fee 09:22:02 SLING OPERATOR CPT-09113 Hemoccult IFOBT - LAB USE ONLY 10:27:22 CDT CPT-80388 Venipuncture Draw Fee 08:27:08 CDT CPT-06622 Liver Profile - LAB USE ONLY 08:27:07 CDT 2 CPT-49166 Microalbumin - LAB USE ONLY 08:27:07 CDT 20 25/05/09 CPT-91691 PT/INR - LAB USE ONLY 08:27:07 CDT CPT-47820 HGBA1C - LAB USE ONLY 08:27:07 CDT CPT-69036 CBC - LAB USE ONLY 08:27:07 CDT CPT-39198 Venipuncture Draw Fee 11:09:14 CDT CPT-99585 Venipuncture Draw Fee 08:32:21 SLING OPERATOR CPT-32176 Venipuncture Draw Fee 09:38:56 SLING OPERATOR CPT-44496 No Charge Offi Visit 21:36:07 CDT 1 CPT-40772 Venipuncture Draw Fee 10:13:28 SLING OPERATOR CPT-33869 Venipuncture Draw Fee 08:31:11 CDT CPT-62664 Aspir/Inject Med Joint 18:17:28 CDT CPT-74278 Venipuncture Draw Fee 10:13:30 CDT CPT-19494 Venipuncture Draw Fee 08:31:43 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
--- OUTSIDE RECORDS SUMMARY | 2020-01-18 13:41 | XMS REPORT | Clinical Summary ---
Author Author Admin, Mitch Leon Organization [facility] Address Unknown Phone Unavailable Allergies, Adverse [...] Coronary atherosclerosis of unspecified type of vessel, [place] or graft EDEMA 782.3 Resolved Mitch [...] Mass Index 32.0-32.9 Adult Active Br ucponce rUbina DO Body Mass Index 32.0-32.9, adult CELLULITIS, [...] Instructions Start Date Stop Date Generic Name [facility] Status Provider Patient Instruction GLIMEPIRIDE 4 MG ORAL TABLET 1 tablet by mouth twice daily f or diabetes GLIMEPIRIDE 24228877791 Active Mitch Urbina DO Active GLIMEPIRIDE 2 MG ORAL TABLET 1 po BID GLIMEPI RIDE 88478211077 No Longer Active Mitch Urbina DO Active AMLODIPINE BESYLATE 5 MG ORAL TABLET 1 tablet by mouth daily AMLODIPINE BESYLATE 85882249493 Active Mitch Urbina DO Active PROVIGIL 200 MG ORAL TABLET 1/2 tab po q day MODA FINIL 38973261953 Active Renee Oconnor LPN Active FAMOTIDINE 20 MG ORAL TABLET by mouth twice a day 2017 FAMOTIDINE 78564854105 No Longer Active Mitch Urbina DO Active COLCRYS 0.6 MG ORAL TABLET 1 tab qid prn gout C OLCHICINE 41521504784 No Longer Active Mitch Urbina DO Active KEFLEX 500 MG ORAL CAPSULE 1 po qid CEPHALEXI N 47874600144 No Longer Active Mitch Urbina DO Active LOSARTAN POTASSIUM 100 MG ORAL TABLET 1 pill by mouth daily, for blood pressure LOSARTAN POTASSIUM 19576509350 Active Ana Ocampo Active AMLODIPINE BESYLATE 5 MG ORAL TABLET 1 tablet by mouth daily 201 01/20/04 AMLODIPINE BESYLATE 27009639631 No Longer Active Joe fulton APRN Active MITIGARE 0.6 MG ORAL CAPSULE 2 capsules at onset of go ut pain, then take one capsule at 1 hour if symptoms persist. COLCHICINE 59 485968959 Active Mitch Urbina DO Active COUMADIN 1 MG ORAL TABLET 2 tabs orally daily with the 5mg tab to equal 7mg daily WARFARIN SODIUM 70317752583 Active Mitch Arnol Urbina DO Active INVOKANA 100 MG ORAL TABLET 1 tablet orally daily CANAGLIFLOZIN 72856099796 Active Curly Coker MD Active MINOXIDIL 2.5 MG ORAL TABLET 1 tablet daily for high blood press ure MINOXIDIL 89933422536 Active Renee Elvin DE LA ROSA Active MECLIZINE HCL 25 MG ORAL TABLET 1 po tid 3 days, then 1/2 ta b tid 3 days MECLIZINE HCL 05771065657 No Longer Active Corey SEGURA Active ALLOPURINOL 300 MG ORAL TABLET Take 1 tablet by mouth daily 2012 ALLOPURINOL 30206413934 No Longer Active Corey SEGURA Active CLONIDINE HCL 0.1 MG ORAL TABLET 1 po bid 7 days, then 1/2 t ab po bid 7 days CLONIDINE HCL 74915379533 No Longer Active Corey SEGURA Active COUMADIN 5 MG ORAL TABLET 1 tab PO daily WARFAR IN SODIUM 60671221946 Active Mitch Urbina DO Active COUMADIN 4 MG ORAL TABLET 1 tablet daily WARFAR IN SODIUM 50797942743 No Longer Active Corey SEGURA Active POLYTRIM 19115-5.1 UNIT/ML-% OPHTHALMIC SOLUTION 1 rui p in affected eye every 3 hours while awake x 7 days POLYMYXIN B-TRIMETHOP RIM 54757614358 No Longer Active Corey SEGURA Active LOSARTAN POTASSIUM-HCTZ 100-12.5 MG ORAL TABLET 1 by m outh daily for high blood pressure LOSARTAN POTASSIUM-HCTZ 20602257082 No Longer A ctive Mitch Urbina DO Active LISINOPRIL-HYDROCHLOROTHIAZIDE 20-12.5 MG ORAL TABLET 1 tab by m outh daily LISINOPRIL-HYDROCHLOROTHIAZIDE 53328726258 No Longer Active Mitch Urbina DO Active LISINOPRIL 20 MG ORAL TABLET 1 tab po at HS LIS INOPRIL 92904846720 No Longer Active Mitch Urbina DO Active COUMADIN 5 MG ORAL TABLET 1 by mouth every other day 2 WARFARIN SODIUM 66568104645 No Longer Active Mitch Urbina DO Active COUMADIN 6 MG ORAL TABLET 1 by mouth every other day 2 WARFARIN SODIUM 43272602265 No Longer Active Mitch Urbina DO Active SIMVASTATIN 40 MG ORAL TABLET 1 tab daily at bedtime SIMVASTATIN 14494324728 Active Renee Oconnor LPN Active SIMVASTATIN 20 MG ORAL TABLET 1 tab daily at bedtime 2 SIMVASTATIN 34205820362 No Longer Active Mitch Urbina DO Active LOVENOX 100 MG/ML SUBCUTANEOUS SOLUTION One injection twice a da y ENOXAPARIN SODIUM 92810681054 No Longer Active Carmine Yusuf MD Active JANUVIA 50 MG ORAL TABLET Take one by mouth daily SITAGLIPTIN PHOSPHATE 44694709641 Active Renee Elvin DE LA ROSA Active JANUVIA 100 MG ORAL TABLET 1/2 by mouth every day 2011 SITAGLIPTIN PHOSPHATE 32165531988 No Longer Active Bijal Segal RN Acti ve METFORMIN HCL 500 MG ORAL TABLET 2 by mouth twice daily METFORMIN HCL 06723785458 No Longer Active Renee Oconnor LPN Active COLCRYS 0.6 MG ORAL TABLET 1 po q 6 hours prn gout pain COLCHICINE 29596423579 No Longer Active Camila Reese Active LISINOPRIL 5 MG ORAL TABLET 1 by mouth every day 11/17 LISINOPRIL 02465067973 No Longer Active Nguyen Perez Active KLOR-CON 20 MEQ ORAL PACKET Take one by mouth daily 20 09/10/08 POTASSIUM CHLORIDE 79070288607 No Longer Active Nguyen Perez Active FUROSEMIDE 40 MG ORAL TABLET 1 by mouth daily F UROSEMIDE 26787399323 No Longer Active Nguyenmolly Perez Active PROVIGIL 100 MG ORAL TABLET Take one by mouth daily 08/20/04 MODAFINIL 65820148171 No Longer Active Mitch Urbina DO Active BACTRIM DS 800-160 MG ORAL TABLET 1 tab by mouth twice daily 201 10/19/09 TRIMETHOPRIM-SULFAMETHOXAZOLE 75269590637 No Longer Active Elian Hays MD Active ADULT ASPIRIN LOW STRENGTH 81 MG ORAL TABLET DISINTEGR ATING 1 by mouth every daily ASPIRIN 26204491674 Active Mitch Urbina DO Ac tive METOPROLOL TARTRATE 50 MG ORAL TABLET 1 by mouth twice daily METOPROLOL TARTRATE 63464692385 Active Mitch Urbina DO Active BACTRIM DS 800-160 MG ORAL TABLET 1 tab by mouth twice daily 201 10/19/09 BACTRIM DS 800-160 MG ORAL TABLET 799086 TRIMETHOPRIM-SULFAMETHOXAZOLE Inactive PROVIGIL 100 MG ORAL TABLET Take one by mouth daily 08/20/04 PROVIGIL 100 MG ORAL TABLET 125750 MODAFINIL Inactive FUROSEMIDE 40 MG ORAL TABLET 1 by mouth daily FUROSEMIDE 40 MG ORAL TABLET 536917 FUROSEMIDE Inactive KLOR-CON 20 MEQ ORAL PACKET Take one by mouth daily 09/10/08 KLOR- CON 20 MEQ ORAL PACKET 3743198 POTASSIUM CHLORIDE Inactive LISINOPRIL 5 MG ORAL TABLET 1 by mouth every day 11/17 LISINOPRIL 5 MG ORAL TABLET 194148 LISINOPRIL Inactive COLCRYS 0.6 MG ORAL TABLET 1 po q 6 hours prn gout pain COLCRYS 0.6 MG ORAL TABLET 759500 COLCHICINE Inactive JANUVIA 100 MG ORAL TABLET 1/2 by mouth every day 2011 JANUVIA 100 MG ORAL TABLET SITAGLIPTIN PHOSPHATE Inactive SIMVASTATIN 20 MG ORAL TABLET 1 tab daily at bedtime 2 SIMVASTATIN 20 MG ORAL TABLET 272830 SIMVASTATIN Inactive COUMADIN 6 MG ORAL TABLET 1 by mouth every other day 2 COUMADIN 6 MG ORAL TABLET 046157 WARFARIN SODIUM Inactive COUMADIN 5 MG ORAL TABLET 1 by mouth every other day 2 COUMADIN 5 MG ORAL TABLET 061844 WARFARIN SODIUM Inactive LISINOPRIL 20 MG ORAL TABLET 1 tab po at HS LISINOPRIL 20 MG ORAL TABLET 645437 LISINOPRIL Inactive LISINOPRIL-HYDROCHLOROTHIAZIDE 20-12.5 MG ORAL TABLET 1 tab by m outh daily LISINOPRIL-HYDROCHLOROTHIAZIDE 20-12.5 MG ORAL TABLET 010735 LISINOPRIL-HYDROCHLOROTHIAZIDE Inactive POLYTRIM 23742-2.1 UNIT/ML-% OPHTHALMIC SOLUTION 1 rui p in affected eye every 3 hours while awake x 7 days POLYTRIM 1000 0-0.1 UNIT/ML-% OPHTHALMIC SOLUTION 593399 POLYMYXIN B-TRIMETHOPRIM Inactive COUMADIN 4 MG ORAL TABLET 1 tablet daily COUMADIN 4 MG ORAL TABLET 359967 WARFARIN SODIUM Inactive CLONIDINE HCL 0.1 MG ORAL TABLET 1 po bid 7 days, then 1/2 t ab po bid 7 days CLONIDINE HCL 0.1 MG ORAL TABLET 253752 CLONIDIN E HCL Inactive ALLOPURINOL 300 MG ORAL TABLET Take 1 tablet by mouth daily 2012 ALLOPURINOL 300 MG ORAL TABLET 278258 ALLOPURINOL I nactive MECLIZINE HCL 25 MG ORAL TABLET 1 po tid 3 days, then 1/2 ta b tid 3 days MECLIZINE HCL 25 MG ORAL TABLET 450717 MECLIZINE HCL Inactive AMLODIPINE BESYLATE 5 MG ORAL TABLET 1 tablet by mouth daily 201 01/20/04 AMLODIPINE BESYLATE 5 MG ORAL TABLET 888549 AMLODIPINE BESYLATE Inactive KEFLEX 500 MG ORAL CAPSULE 1 po qid K EFLEX 500 MG ORAL CAPSULE 490589 CEPHALEXIN Inactive COLCRYS 0.6 MG ORAL TABLET 1 tab qid prn gout COLCRYS 0.6 MG ORAL TABLET 538650 COLCHICINE Inactive FAMOTIDINE 20 MG ORAL TABLET by mouth twice a day 2017 FAMOTIDINE 20 MG ORAL TABLET 276155 FAMOTIDINE Inactive GLIMEPIRIDE 2 MG ORAL TABLET 1 po BID GLIMEPIRIDE 2 MG ORAL TABLET 945642 GLIMEPIRIDE Inactive LOVENOX 100 MG/ML SUBCUTANEOUS SOLUTION One injection twice a da y LOVENOX 100 MG/ML SUBCUTANEOUS SOLUTION 619707 ENOXAPAR IN SODIUM Inactive Vital Signs Date [...] HGBA1C - Chemistry cholesterol, serum 136 mg/dL [phone]/12/06 triglyceride, serum, fasting 247 mg/dL 30-200 HDL cholesterol, serum 41 mg/dL 32-60 LDL cholesterol, serum 46 mg/dL 0-130 aspartate aminotransferase (SGOT), serum 22 U/L 15-37 alanine aminotransferase (SGPT), serum 30 U/L 12-78 bilirubin, serum, total 0.80 mg/dL 0.00-1.00 hemoglobin A1C, blood, as % of total hemoglobin 6.4 % 4.3-6.0 Encounters Code Encounter Date Provider Facility CPT-80495 Level 3 Est. Patient 18:25:53 CDT Mitch luis [facility] CPT-13548 Level 3 Est. Patient 19:43:34 CDT Mitch luis [facility] CPT-32448 Level 4 Est. Patient 09:30:18 CDT Mitch luis [facility] CPT-81396 Level 3 Est. Patient 15:10:14 CDT Joe kamara [facility] CPT-37640 Level 3 Est. Patient 15:03:46 CDT Joe kamara [facility] CPT-98907 Level 3 Est. Patient 14:21:06 CDT Mitch Arnol [facility] [facility] CPT-27980 Level 3 Est. Patient 14:52:06 CDT Joe kamara [facility] CPT-57244 Level 3 Est. Patient 09:34:30 [employer] Mitch Arnol [facility] [facility] CPT-08174 Level 3 Est. Patient 09:37:15 CDT Mitch luis [facility] CPT-22808 Level 3 Est. Patient 17:01:00 [employer] Mitch luis [facility] CPT-18906 Level 3 Est. Patient 13:53:19 [employer] Mitch luis [facility] CPT-34947 Level 3 Est. Patient 19:19:37 [employer] Mitch luis [facility] CPT-05833 Level 3 Est. Patient 13:25:53 [employer]URE [employer] Tavo toure MD [facility] CPT-49855 Level 3 Est. Patient 18:17:28 CDT Mitch Arnol luis [facility] CPT-69939 Level 3 Est. Patient 15:22:57 CDT Mitch Arnol [facility] CPT-98325 Level 3 Est. Patient 18:21:50 CDT Mitch luis [facility] CPT-07973 Level 3 Est. Patient 18:20:38 CDT Mitch Arnol l[facility] CPT-88435 Level 3 Est. Patient 15:37:55 CDT Mitch Arnol luis [facility] CPT-64961 Level 2 Est. Patient 15:54:44 CDT Carmine benton MD [facility] CPT-75924 Level 3 Est. Patient 21:46:01 [employer] Mitch luis [facility] CPT-11949 Level 3 Est. Patient 22:15:50 CDT Mitch Arnol luis [facility] CPT-07985 Level 3 Est. Patient 10:48:15 CDT Mitch luis [facility] CPT-79589 Level 3 Est. Patient 23:20:57 CDT Tavo toure MD [facility] CPT-65927 Level 3 Est. Patient 16:26:13 CDT Mitch luis [facility] Procedures Code Procedure Name Date Entry Date Standard Desc ription CPT-JTINJ Asp/Joint Injection 18:47:02 CDT CPT-31543 Venipuncture Draw Fee 09:26:17 CDT CPT-01676 PT/INR - LAB USE ONLY 13:32:49 [employer] CPT-27801 Venipuncture Draw Fee 13:32:49 [employer] CPT-90751 PT/INR - LAB USE ONLY 10:34:49 [employer] CPT-19045 Venipuncture Draw Fee 10:34:48 [employer] CPT-81272 PT/INR - LAB USE ONLY 09:22:03 [employer] CPT-83349 Venipuncture Draw Fee 09:22:02 [employer] CPT-89046 Hemoccult IFOBT - LAB USE ONLY 10:27:22 CDT CPT-83683 Venipuncture Draw Fee 08:27:08 CDT CPT-56020 Liver Profile - LAB USE ONLY 08:27:07 CDT 2 CPT-32501 Microalbumin - LAB USE ONLY 08:27:07 CDT 20 25/05/09 CPT-52515 PT/INR - LAB USE ONLY 08:27:07 CDT CPT-70065 HGBA1C - LAB USE ONLY 08:27:07 CDT CPT-79187 CBC - LAB USE ONLY 08:27:07 CDT CPT-41572 Venipuncture Draw Fee 11:09:14 CDT CPT-69440 Venipuncture Draw Fee 08:32:21 [employer] CPT-85239 Venipuncture Draw Fee 09:38:56 [employer] CPT-94671 No Charge Offi Visit 21:36:07 CDT 1 CPT-81248 Venipuncture Draw Fee 10:13:28 [employer] CPT-22843 Venipuncture Draw Fee 08:31:11 CDT CPT-49058 Aspir/Inject Med Joint 18:17:28 CDT CPT-94742 Venipuncture Draw Fee 10:13:30 CDT CPT-13288 Venipuncture Draw Fee 08:31:43 [employer] CPT-JTINJ Joint Injection 18:34:50 CDT CPT-56236 Knee 3V 12:25:09 CDT CPT-81024 Venipuncture Draw Fee 12:15:57 CDT CPT-060 Medical Surveillance Exam 21:31:43 CDT 2011 CPT-18804 Venipuncture Draw Fee 08:32:05 [employer] CPT-OV Office Visit 18:19:06 CDT
--- OUTSIDE RECORDS SUMMARY | 2020-01-18 13:41 | XMS REPORT | Clinical Summary ---
Author Author Admin, Mitch Leon Organization [facility] Address Unknown Phone Unavailable [...] Date Stop Date Generic Name [facility] [place] Status Provider Patient Instruction GLIMEPIRIDE 4 MG ORAL TABLET 1 tablet by mouth twice daily f or diabetes GLIMEPIRIDE 27184914590 Active Mitch Urbina DO Active GLIMEPIRIDE 2 MG ORAL TABLET 1 po BID GLIMEPI RIDE 50660999917 No Longer Active Mitch Urbina DO Active AMLODIPINE BESYLATE 5 MG ORAL TABLET 1 tablet by mouth daily AMLODIPINE BESYLATE 63078817391 Active Mitch Urbina DO Active PROVIGIL 200 MG ORAL TABLET 1/2 tab po q day MODA FINIL 82032795641 Active Renee Oconnor LPN Active FAMOTIDINE 20 MG ORAL TABLET by mouth twice a day 2017 FAMOTIDINE 91011125776 No Longer Active Mitch Urbina DO Active COLCRYS 0.6 MG ORAL TABLET 1 tab qid prn gout C OLCHICINE 73084189023 No Longer Active Mitch Urbina DO Active KEFLEX 500 MG ORAL CAPSULE 1 po qid CEPHALEXI N 02475800988 No Longer Active Mitch Urbina DO Active LOSARTAN POTASSIUM 100 MG ORAL TABLET 1 pill by mouth daily, for blood pressure LOSARTAN POTASSIUM 47622171064 Active Ana Ocampo Active AMLODIPINE BESYLATE 5 MG ORAL TABLET 1 tablet by mouth daily 201 01/20/04 AMLODIPINE BESYLATE 01481553430 No Longer Active Joe fulton APRN Active MITIGARE 0.6 MG ORAL CAPSULE 2 capsules at onset of go ut pain, then take one capsule at 1 hour if symptoms persist. COLCHICINE 59 809124129 Active Mitch Urbina DO Active COUMADIN 1 MG ORAL TABLET 2 tabs orally daily with the 5mg tab to equal 7mg daily WARFARIN SODIUM 16175023785 Active Mitch Arnol Urbina DO Active INVOKANA 100 MG ORAL TABLET 1 tablet orally daily CANAGLIFLOZIN 91115905365 Active Curly Coker MD Active MINOXIDIL 2.5 MG ORAL TABLET 1 tablet daily for high blood press ure MINOXIDIL 39437378048 Active Renee Elvin DE LA ROSA Active MECLIZINE HCL 25 MG ORAL TABLET 1 po tid 3 days, then 1/2 ta b tid 3 days MECLIZINE HCL 24769453417 No Longer Active Corey SEGURA Active ALLOPURINOL 300 MG ORAL TABLET Take 1 tablet by mouth daily 2012 ALLOPURINOL 57798794410 No Longer Active Corey SEGURA Active CLONIDINE HCL 0.1 MG ORAL TABLET 1 po bid 7 days, then 1/2 t ab po bid 7 days CLONIDINE HCL 84148095749 No Longer Active Corey SEGURA Active COUMADIN 5 MG ORAL TABLET 1 tab PO daily WARFAR IN SODIUM 49281161164 Active Mitch Urbina DO Active COUMADIN 4 MG ORAL TABLET 1 tablet daily WARFAR IN SODIUM 01280982824 No Longer Active Corey SEGURA Active POLYTRIM 11964-9.1 UNIT/ML-% OPHTHALMIC SOLUTION 1 rui p in affected eye every 3 hours while awake x 7 days POLYMYXIN B-TRIMETHOP RIM 86463300739 No Longer Active Corey SEGURA Active LOSARTAN POTASSIUM-HCTZ 100-12.5 MG ORAL TABLET 1 by m outh daily for high blood pressure LOSARTAN POTASSIUM-HCTZ 16917349817 No Longer A ctive Mitch Urbina DO Active LISINOPRIL-HYDROCHLOROTHIAZIDE 20-12.5 MG ORAL TABLET 1 tab by m outh daily LISINOPRIL-HYDROCHLOROTHIAZIDE 65392851797 No Longer Active Mitch Urbina DO Active LISINOPRIL 20 MG ORAL TABLET 1 tab po at HS LIS INOPRIL 82093694762 No Longer Active Mitch Urbina DO Active COUMADIN 5 MG ORAL TABLET 1 by mouth every other day 2 WARFARIN SODIUM 81480355129 No Longer Active Mitch Urbina DO Active COUMADIN 6 MG ORAL TABLET 1 by mouth every other day 2 WARFARIN SODIUM 65362487040 No Longer Active Mitch Urbina DO Active SIMVASTATIN 40 MG ORAL TABLET 1 tab daily at bedtime SIMVASTATIN 81987045827 Active Renee Oconnor LPN Active SIMVASTATIN 20 MG ORAL TABLET 1 tab daily at bedtime 2 SIMVASTATIN 25139705470 No Longer Active Mitch Urbina DO Active LOVENOX 100 MG/ML SUBCUTANEOUS SOLUTION One injection twice a da y ENOXAPARIN SODIUM 80464916593 No Longer Active Carmine Yusuf MD Active JANUVIA 50 MG ORAL TABLET Take one by mouth daily SITAGLIPTIN PHOSPHATE 60550818724 Active Renee Elvin DE LA ROSA Active JANUVIA 100 MG ORAL TABLET 1/2 by mouth every day 2011 SITAGLIPTIN PHOSPHATE 80411977880 No Longer Active Bijal Segal RN Acti ve METFORMIN HCL 500 MG ORAL TABLET 2 by mouth twice daily METFORMIN HCL 56117338033 No Longer Active Renee Oconnor LPN Active COLCRYS 0.6 MG ORAL TABLET 1 po q 6 hours prn gout pain COLCHICINE 62164484865 No Longer Active Camila Reese Active LISINOPRIL 5 MG ORAL TABLET 1 by mouth every day 11/17 LISINOPRIL 23581854680 No Longer Active Nguyen Perez Active KLOR-CON 20 MEQ ORAL PACKET Take one by mouth daily 20 09/10/08 POTASSIUM CHLORIDE 19936227871 No Longer Active Nguyen ePrez Active FUROSEMIDE 40 MG ORAL TABLET 1 by mouth daily F UROSEMIDE 33333683818 No Longer Active Nguyenmolly Perez Active PROVIGIL 100 MG ORAL TABLET Take one by mouth daily 08/20/04 MODAFINIL 92937052834 No Longer Active Mitch Urbina DO Active BACTRIM DS 800-160 MG ORAL TABLET 1 tab by mouth twice daily 201 10/19/09 TRIMETHOPRIM-SULFAMETHOXAZOLE 58200288964 No Longer Active Elian Hays MD Active ADULT ASPIRIN LOW STRENGTH 81 MG ORAL TABLET DISINTEGR ATING 1 by mouth every daily ASPIRIN 50624425512 Active Mitch Urbina DO Ac tive METOPROLOL TARTRATE 50 MG ORAL TABLET 1 by mouth twice daily METOPROLOL TARTRATE 81084631769 Active Mitch Urbina DO Active BACTRIM DS 800-160 MG ORAL TABLET 1 tab by mouth twice daily 201 10/19/09 BACTRIM DS 800-160 MG ORAL TABLET 512997 TRIMETHOPRIM-SULFAMETHOXAZOLE Inactive PROVIGIL 100 MG ORAL TABLET Take one by mouth daily 08/20/04 PROVIGIL 100 MG ORAL TABLET 695125 MODAFINIL Inactive FUROSEMIDE 40 MG ORAL TABLET 1 by mouth daily FUROSEMIDE 40 MG ORAL TABLET 630428 FUROSEMIDE Inactive KLOR-CON 20 MEQ ORAL PACKET Take one by mouth daily 09/10/08 KLOR- CON 20 MEQ ORAL PACKET 0583234 POTASSIUM CHLORIDE Inactive LISINOPRIL 5 MG ORAL TABLET 1 by mouth every day 11/17 LISINOPRIL 5 MG ORAL TABLET 371844 LISINOPRIL Inactive COLCRYS 0.6 MG ORAL TABLET 1 po q 6 hours prn gout pain COLCRYS 0.6 MG ORAL TABLET 584736 COLCHICINE Inactive JANUVIA 100 MG ORAL TABLET 1/2 by mouth every day 2011 JANUVIA 100 MG ORAL TABLET SITAGLIPTIN PHOSPHATE Inactive SIMVASTATIN 20 MG ORAL TABLET 1 tab daily at bedtime 2 SIMVASTATIN 20 MG ORAL TABLET 823320 SIMVASTATIN Inactive COUMADIN 6 MG ORAL TABLET 1 by mouth every other day 2 COUMADIN 6 MG ORAL TABLET 070874 WARFARIN SODIUM Inactive COUMADIN 5 MG ORAL TABLET 1 by mouth every other day 2 COUMADIN 5 MG ORAL TABLET 844243 WARFARIN SODIUM Inactive LISINOPRIL 20 MG ORAL TABLET 1 tab po at HS LISINOPRIL 20 MG ORAL TABLET 571474 LISINOPRIL Inactive LISINOPRIL-HYDROCHLOROTHIAZIDE 20-12.5 MG ORAL TABLET 1 tab by m outh daily LISINOPRIL-HYDROCHLOROTHIAZIDE 20-12.5 MG ORAL TABLET 572299 LISINOPRIL-HYDROCHLOROTHIAZIDE Inactive POLYTRIM 07179-9.1 UNIT/ML-% OPHTHALMIC SOLUTION 1 rui p in affected eye every 3 hours while awake x 7 days POLYTRIM 1000 0-0.1 UNIT/ML-% OPHTHALMIC SOLUTION 583473 POLYMYXIN B-TRIMETHOPRIM Inactive COUMADIN 4 MG ORAL TABLET 1 tablet daily COUMADIN 4 MG ORAL TABLET 146385 WARFARIN SODIUM Inactive CLONIDINE HCL 0.1 MG ORAL TABLET 1 po bid 7 days, then 1/2 t ab po bid 7 days CLONIDINE HCL 0.1 MG ORAL TABLET 797025 CLONIDIN E HCL Inactive ALLOPURINOL 300 MG ORAL TABLET Take 1 tablet by mouth daily 2012 ALLOPURINOL 300 MG ORAL TABLET 011993 ALLOPURINOL I nactive MECLIZINE HCL 25 MG ORAL TABLET 1 po tid 3 days, then 1/2 ta b tid 3 days MECLIZINE HCL 25 MG ORAL TABLET 631946 MECLIZINE HCL Inactive AMLODIPINE BESYLATE 5 MG ORAL TABLET 1 tablet by mouth daily 201 01/20/04 AMLODIPINE BESYLATE 5 MG ORAL TABLET 040069 AMLODIPINE BESYLATE Inactive KEFLEX 500 MG ORAL CAPSULE 1 po qid K EFLEX 500 MG ORAL CAPSULE 384452 CEPHALEXIN Inactive COLCRYS 0.6 MG ORAL TABLET 1 tab qid prn gout COLCRYS 0.6 MG ORAL TABLET 763059 COLCHICINE Inactive FAMOTIDINE 20 MG ORAL TABLET by mouth twice a day 2017 FAMOTIDINE 20 MG ORAL TABLET 773529 FAMOTIDINE Inactive GLIMEPIRIDE 2 MG ORAL TABLET 1 po BID GLIMEPIRIDE 2 MG ORAL TABLET 154997 GLIMEPIRIDE Inactive LOVENOX 100 MG/ML SUBCUTANEOUS SOLUTION One injection twice a da y LOVENOX 100 MG/ML SUBCUTANEOUS SOLUTION 287310 ENOXAPAR IN SODIUM Inactive Vital Signs Date [...] HGBA1C - Chemistry cholesterol, serum 136 mg/dL 317-182 4428/12/06 triglyceride, serum, fasting 247 mg/dL 30-200 HDL cholesterol, serum 41 mg/dL 32-60 LDL cholesterol, serum 46 mg/dL 0-130 aspartate aminotransferase (SGOT), serum 22 U/L 15-37 alanine aminotransferase (SGPT), serum 30 U/L 12-78 bilirubin, serum, total 0.80 mg/dL 0.00-1.00 hemoglobin A1C, blood, as % of total hemoglobin 6.4 % 4.3-6.0 Encounters Code Encounter Date Provider Facility CPT-85322 Level 3 Est. Patient 18:25:53 CDT Mitch luis [facility] CPT-62000 Level 3 Est. Patient 19:43:34 CDT Mitch luis [facility] CPT-54328 Level 4 Est. Patient 09:30:18 CDT Mitch luis [facility] CPT-53681 Level 3 Est. Patient 15:10:14 CDT Joe kamara [facility] CPT-61788 Level 3 Est. Patient 15:03:46 CDT Joe kamara [facility] CPT-27562 Level 3 Est. Patient 14:21:06 CDT Mitch Arnol Nona luis [facility] CPT-81237 Level 3 Est. Patient 14:52:06 CDT Joe kamara [facility] CPT-46519 Level 3 Est. Patient 09:34:30 SPOUT LINER Mitch Arnol Nona luis [facility] CPT-11502 Level 3 Est. Patient 09:37:15 CDT Mitch luis [facility] CPT-38539 Level 3 Est. Patient 17:01:00 SPOUT LINER Mitch luis [facility] CPT-96606 Level 3 Est. Patient 13:53:19 SPOUT LINER Mitch luis [facility] CPT-80263 Level 3 Est. Patient 19:19:37 SPOUT LINER Mitch luis [facility] CPT-28696 Level 3 Est. Patient 13:25:53 SPOUT LINER Tavo toure MD [facility] CPT-13756 Level 3 Est. Patient 18:17:28 CDT Mitch Arnol luis [facility] CPT-16377 Level 3 Est. Patient 15:22:57 CDT Mitch Arnol luis [facility] CPT-43725 Level 3 Est. Patient 18:21:50 CDT Mitch luis [facility] CPT-63934 Level 3 Est. Patient 18:20:38 CDT Mitch Arnol luis [facility] CPT-12576 Level 3 Est. Patient 15:37:55 CDT Mitch Arnol luis [facility] CPT-14554 Level 2 Est. Patient 15:54:44 CDT Carmine benton MD [facility] CPT-12114 Level 3 Est. Patient 21:46:01 SPOUT LINER Mitch luis [facility] CPT-88470 Level 3 Est. Patient 22:15:50 CDT Mitch Arnol luis [facility] CPT-04141 Level 3 Est. Patient 10:48:15 CDT Mitch luis [facility] CPT-00970 Level 3 Est. Patient 23:20:57 CDT Tavo toure MD [facility] CPT-14795 Level 3 Est. Patient 16:26:13 CDT Mitch luis [facility] Procedures Code Procedure Name Date Entry Date Standard Desc ription CPT-JTINJ Asp/Joint Injection 18:47:02 CDT CPT-84818 Venipuncture Draw Fee 09:26:17 CDT CPT-33722 PT/INR - LAB USE ONLY 13:32:49 SPOUT LINER CPT-37961 Venipuncture Draw Fee 13:32:49 SPOUT LINER CPT-70760 PT/INR - LAB USE ONLY 10:34:49 SPOUT LINER CPT-32949 Venipuncture Draw Fee 10:34:48 SPOUT LINER CPT-25389 PT/INR - LAB USE ONLY 09:22:03 SPOUT LINER CPT-80930 Venipuncture Draw Fee 09:22:02 SPOUT LINER CPT-12615 Hemoccult IFOBT - LAB USE ONLY 10:27:22 CDT CPT-62548 Venipuncture Draw Fee 08:27:08 CDT CPT-02334 Liver Profile - LAB USE ONLY 08:27:07 CDT 2 CPT-82560 Microalbumin - LAB USE ONLY 08:27:07 CDT 20 25/05/09 CPT-24083 PT/INR - LAB USE ONLY 08:27:07 CDT CPT-52190 HGBA1C - LAB USE ONLY 08:27:07 CDT CPT-14916 CBC - LAB USE ONLY 08:27:07 CDT CPT-63638 Venipuncture Draw Fee 11:09:14 CDT CPT-91988 Venipuncture Draw Fee 08:32:21 SPOUT LINER CPT-39133 Venipuncture Draw Fee 09:38:56 SPOUT LINER CPT-00018 No Charge Offi Visit 21:36:07 CDT 1 CPT-10319 Venipuncture Draw Fee 10:13:28 SPOUT LINER CPT-63895 Venipuncture Draw Fee 08:31:11 CDT CPT-81226 Aspir/Inject Med Joint 18:17:28 CDT CPT-09731 Venipuncture Draw Fee 10:13:30 CDT CPT-39676 Venipuncture Draw Fee 08:31:43 SPOUT LINER CPT-JTINJ Joint Injection 18:34:50 CDT CPT-32256 Knee 3V 12:25:09 CDT CPT-89894 Venipuncture Draw Fee 12:15:57 CDT CPT-060 Medical Surveillance Exam 21:31:43 CDT 2011 CPT-58474 Venipuncture Draw Fee 08:32:05 SPOUT LINER CPT-OV Office Visit 18:19:06 CDT
--- OUTSIDE RECORDS SUMMARY | 2020-01-18 13:42 | XMS REPORT | Clinical Summary ---
[...] Coronary atherosclerosis of unspecified type of vessel, [place] or graft EDEMA 782.3 Resolved Mitch [...] Instructions Start Date Stop Date Generic Name [facility] Status Provider Patient Instruction GLIMEPIRIDE 4 MG ORAL TABLET 1 tablet by mouth twice daily f or diabetes GLIMEPIRIDE 11277911726 Active Mitch Urbina DO Active GLIMEPIRIDE 2 MG ORAL TABLET 1 po BID GLIMEPI RIDE 34957784595 No Longer Active Mitch Urbina DO Active AMLODIPINE BESYLATE 5 MG ORAL TABLET 1 tablet by mouth daily AMLODIPINE BESYLATE 45451329656 Active Mitch Urbina DO Active PROVIGIL 200 MG ORAL TABLET 1/2 tab po q day MODA FINIL 41421813791 Active Renee Oconnor LPN Active FAMOTIDINE 20 MG ORAL TABLET by mouth twice a day 2017 FAMOTIDINE 93320121730 No Longer Active Mitch Urbina DO Active COLCRYS 0.6 MG ORAL TABLET 1 tab qid prn gout C OLCHICINE 56106468288 No Longer Active Mitch Urbina DO Active KEFLEX 500 MG ORAL CAPSULE 1 po qid CEPHALEXI N 67241454040 No Longer Active Mitch Urbina DO Active LOSARTAN POTASSIUM 100 MG ORAL TABLET 1 pill by mouth daily, for blood pressure LOSARTAN POTASSIUM 88181220786 Active Ana Ocampo Active AMLODIPINE BESYLATE 5 MG ORAL TABLET 1 tablet by mouth daily 201 01/20/04 AMLODIPINE BESYLATE 93790112116 No Longer Active Joe fulton APRN Active MITIGARE 0.6 MG ORAL CAPSULE 2 capsules at onset of go ut pain, then take one capsule at 1 hour if symptoms persist. COLCHICINE 59 731502138 Active Mitch Urbina DO Active COUMADIN 1 MG ORAL TABLET 2 tabs orally daily with the 5mg tab to equal 7mg daily WARFARIN SODIUM 37201794363 Active Mitch Arnol Urbina DO Active INVOKANA 100 MG ORAL TABLET 1 tablet orally daily CANAGLIFLOZIN 14123465064 Active Ana Ocampo Active MINOXIDIL 2.5 MG ORAL TABLET 1 tablet daily for high blood press ure MINOXIDIL 54222019677 Active Renee Quirogamonserrat DE LA ROSA Active MECLIZINE HCL 25 MG ORAL TABLET 1 po tid 3 days, then 1/2 ta b tid 3 days MECLIZINE HCL 43870158311 No Longer Active Corey SEGURA Active ALLOPURINOL 300 MG ORAL TABLET Take 1 tablet by mouth daily 2012 ALLOPURINOL 69327076160 No Longer Active Corey SEGURA Active CLONIDINE HCL 0.1 MG ORAL TABLET 1 po bid 7 days, then 1/2 t ab po bid 7 days CLONIDINE HCL 43456512797 No Longer Active Corey SEGURA Active COUMADIN 5 MG ORAL TABLET 1 tab PO daily WARFAR IN SODIUM 21422057823 Active Mitch Urbina DO Active COUMADIN 4 MG ORAL TABLET 1 tablet daily WARFAR IN SODIUM 93419021251 No Longer Active Corey SEGURA Active POLYTRIM 07097-8.1 UNIT/ML-% OPHTHALMIC SOLUTION 1 rui p in affected eye every 3 hours while awake x 7 days POLYMYXIN B-TRIMETHOP RIM 85658160923 No Longer Active Corey SEGURA Active LOSARTAN POTASSIUM-HCTZ 100-12.5 MG ORAL TABLET 1 by m outh daily for high blood pressure LOSARTAN POTASSIUM-HCTZ 46104649988 No Longer A ctive Mitch Urbina DO Active LISINOPRIL-HYDROCHLOROTHIAZIDE 20-12.5 MG ORAL TABLET 1 tab by m outh daily LISINOPRIL-HYDROCHLOROTHIAZIDE 63474020091 No Longer Active Mitch Urbina DO Active LISINOPRIL 20 MG ORAL TABLET 1 tab po at HS LIS INOPRIL 96859585311 No Longer Active Mitch Urbina DO Active COUMADIN 5 MG ORAL TABLET 1 by mouth every other day 2 WARFARIN SODIUM 68142240248 No Longer Active Mitch Urbina DO Active COUMADIN 6 MG ORAL TABLET 1 by mouth every other day 2 WARFARIN SODIUM 49526619457 No Longer Active Mitch Urbina DO Active SIMVASTATIN 40 MG ORAL TABLET 1 tab daily at bedtime SIMVASTATIN 27222920681 Active Renee Oconnor LPN Active SIMVASTATIN 20 MG ORAL TABLET 1 tab daily at bedtime 2 SIMVASTATIN 66689304574 No Longer Active Mitch Urbina DO Active LOVENOX 100 MG/ML SUBCUTANEOUS SOLUTION One injection twice a da y ENOXAPARIN SODIUM 34927785368 No Longer Active Carmine Yusuf MD Active JANUVIA 50 MG ORAL TABLET Take one by mouth daily SITAGLIPTIN PHOSPHATE 66283140009 Active Renee Elvin DE LA ROSA Active JANUVIA 100 MG ORAL TABLET 1/2 by mouth every day 2011 SITAGLIPTIN PHOSPHATE 45738771384 No Longer Active Bijal Segal RN Acti ve METFORMIN HCL 500 MG ORAL TABLET 2 by mouth twice daily METFORMIN HCL 01244745565 No Longer Active Renee Oconnor LPN Active COLCRYS 0.6 MG ORAL TABLET 1 po q 6 hours prn gout pain COLCHICINE 31290802616 No Longer Active Camila Reese Active LISINOPRIL 5 MG ORAL TABLET 1 by mouth every day 11/17 LISINOPRIL 22186154225 No Longer Active Nguyen Perez Active KLOR-CON 20 MEQ ORAL PACKET Take one by mouth daily 20 09/10/08 POTASSIUM CHLORIDE 82154333084 No Longer Active Nguyen Perez Active FUROSEMIDE 40 MG ORAL TABLET 1 by mouth daily F UROSEMIDE 17544331275 No Longer Active Nguyenmolly Perez Active PROVIGIL 100 MG ORAL TABLET Take one by mouth daily 08/20/04 MODAFINIL 86422771667 No Longer Active Mitch Urbina DO Active BACTRIM DS 800-160 MG ORAL TABLET 1 tab by mouth twice daily 201 10/19/09 TRIMETHOPRIM-SULFAMETHOXAZOLE 87392196058 No Longer Active Elian Hays MD Active ADULT ASPIRIN LOW STRENGTH 81 MG ORAL TABLET DISINTEGR ATING 1 by mouth every daily ASPIRIN 09337306418 Active Mitch Urbina DO Ac tive METOPROLOL TARTRATE 50 MG ORAL TABLET 1 by mouth twice daily METOPROLOL TARTRATE 60012633268 Active Ana Ocampo Activ e BACTRIM DS 800-160 MG ORAL TABLET 1 tab by mouth twice daily 201 10/19/09 BACTRIM DS 800-160 MG ORAL TABLET 740254 TRIMETHOPRIM-SULFAMETHOXAZOLE Inactive PROVIGIL 100 MG ORAL TABLET Take one by mouth daily 08/20/04 PROVIGIL 100 MG ORAL TABLET 906829 MODAFINIL Inactive FUROSEMIDE 40 MG ORAL TABLET 1 by mouth daily FUROSEMIDE 40 MG ORAL TABLET 939994 FUROSEMIDE Inactive KLOR-CON 20 MEQ ORAL PACKET Take one by mouth daily 09/10/08 KLOR- CON 20 MEQ ORAL PACKET 4699616 POTASSIUM CHLORIDE Inactive LISINOPRIL 5 MG ORAL TABLET 1 by mouth every day 11/17 LISINOPRIL 5 MG ORAL TABLET 507041 LISINOPRIL Inactive COLCRYS 0.6 MG ORAL TABLET 1 po q 6 hours prn gout pain COLCRYS 0.6 MG ORAL TABLET 289371 COLCHICINE Inactive JANUVIA 100 MG ORAL TABLET 1/2 by mouth every day 2011 JANUVIA 100 MG ORAL TABLET SITAGLIPTIN PHOSPHATE Inactive SIMVASTATIN 20 MG ORAL TABLET 1 tab daily at bedtime 2 SIMVASTATIN 20 MG ORAL TABLET 662377 SIMVASTATIN Inactive COUMADIN 6 MG ORAL TABLET 1 by mouth every other day 2 COUMADIN 6 MG ORAL TABLET 034328 WARFARIN SODIUM Inactive COUMADIN 5 MG ORAL TABLET 1 by mouth every other day 2 COUMADIN 5 MG ORAL TABLET 313657 WARFARIN SODIUM Inactive LISINOPRIL 20 MG ORAL TABLET 1 tab po at HS LISINOPRIL 20 MG ORAL TABLET 278163 LISINOPRIL Inactive LISINOPRIL-HYDROCHLOROTHIAZIDE 20-12.5 MG ORAL TABLET 1 tab by m outh daily LISINOPRIL-HYDROCHLOROTHIAZIDE 20-12.5 MG ORAL TABLET 278771 LISINOPRIL-HYDROCHLOROTHIAZIDE Inactive POLYTRIM 29103-8.1 UNIT/ML-% OPHTHALMIC SOLUTION 1 rui p in affected eye every 3 hours while awake x 7 days POLYTRIM 1000 0-0.1 UNIT/ML-% OPHTHALMIC SOLUTION 418550 POLYMYXIN B-TRIMETHOPRIM Inactive COUMADIN 4 MG ORAL TABLET 1 tablet daily COUMADIN 4 MG ORAL TABLET 106048 WARFARIN SODIUM Inactive CLONIDINE HCL 0.1 MG ORAL TABLET 1 po bid 7 days, then 1/2 t ab po bid 7 days CLONIDINE HCL 0.1 MG ORAL TABLET 215048 CLONIDIN E HCL Inactive ALLOPURINOL 300 MG ORAL TABLET Take 1 tablet by mouth daily 2012 ALLOPURINOL 300 MG ORAL TABLET 111061 ALLOPURINOL I nactive MECLIZINE HCL 25 MG ORAL TABLET 1 po tid 3 days, then 1/2 ta b tid 3 days MECLIZINE HCL 25 MG ORAL TABLET 424901 MECLIZINE HCL Inactive AMLODIPINE BESYLATE 5 MG ORAL TABLET 1 tablet by mouth daily 201 01/20/04 AMLODIPINE BESYLATE 5 MG ORAL TABLET 004739 AMLODIPINE BESYLATE Inactive KEFLEX 500 MG ORAL CAPSULE 1 po qid K EFLEX 500 MG ORAL CAPSULE 516294 CEPHALEXIN Inactive COLCRYS 0.6 MG ORAL TABLET 1 tab qid prn gout COLCRYS 0.6 MG ORAL TABLET 833322 COLCHICINE Inactive FAMOTIDINE 20 MG ORAL TABLET by mouth twice a day 2017 FAMOTIDINE 20 MG ORAL TABLET 039822 FAMOTIDINE Inactive GLIMEPIRIDE 2 MG ORAL TABLET 1 po BID GLIMEPIRIDE 2 MG ORAL TABLET 599652 GLIMEPIRIDE Inactive LOVENOX 100 MG/ML SUBCUTANEOUS SOLUTION One injection twice a da y LOVENOX 100 MG/ML SUBCUTANEOUS SOLUTION 216306 ENOXAPAR IN SODIUM Inactive Vital Signs Date [...] HGBA1C - Chemistry cholesterol, serum 136 mg/dL 094-156 5953/12/06 triglyceride, serum, fasting 247 mg/dL 30-200 HDL cholesterol, serum 41 mg/dL 32-60 LDL cholesterol, serum 46 mg/dL 0-130 aspartate aminotransferase (SGOT), serum 22 U/L 15-37 alanine aminotransferase (SGPT), serum 30 U/L 12-78 bilirubin, serum, total 0.80 mg/dL 0.00-1.00 hemoglobin A1C, blood, as % of total hemoglobin 6.4 % 4.3-6.0 Encounters Code Encounter Date Provider Facility CPT-24346 Level 3 Est. Patient 18:25:[address] [facility] CPT-32072 Level 3 Est. Patient 19:43:[address] [facility] CPT-41522 Level 4 Est. Patient 09:30:[address] [facility] CPT-67424 Level 3 Est. Patient 15:10:14 CDT Joe kamara [facility] CPT-27439 Level 3 Est. Patient 15:03:46 CDT Joe kamara [facility] CPT-98548 Level 3 Est. Patient 14:21:[address] [facility] CPT-83139 Level 3 Est. Patient 14:52:06 CDT Joe kamara [facility] CPT-82774 Level 3 Est. Patient 09:34:30 LINING FINISHER Mitch luis [facility] CPT-80740 Level 3 Est. Patient 09:37:[address] [facility] CPT-06739 Level 3 Est. Patient 17:01:00 LINING FINISHER Mitch luis [facility] CPT-40716 Level 3 Est. Patient 13:53:19 LINING FINISHER Mitch luis [facility] CPT-32598 Level 3 Est. Patient 19:19:37 LINING FINISHER Mitch luis [facility] CPT-27763 Level 3 Est. Patient 13:25:53 LINING FINISHER Tavo toure MD [facility] CPT-31885 Level 3 Est. Patient 18:17:28 CDT Mitch luis [facility] CPT-28264 Level 3 Est. Patient 15:22:[address] [facility] CPT-06533 Level 3 Est. Patient 18:21:[address] [facility] CPT-88127 Level 3 Est. Patient 18:20:[address] [facility] CPT-16247 Level 3 Est. Patient 15:37:55 CDT Mitch luis [facility] CPT-84636 Level 2 Est. Patient 15:54:44 CDT Carmine benton MD [facility] CPT-78605 Level 3 Est. Patient 21:46:01 LINING FINISHER Mitch luis [facility] CPT-78348 Level 3 Est. Patient 22:15:50 CDT Mitch luis [facility] CPT-19691 Level 3 Est. Patient 10:48:15 CDT Mitch luis [facility] CPT-35978 Level 3 Est. Patient 23:20:57 CDT Tavo toure MD [facility] CPT-10373 Level 3 Est. Patient 16:26:13 CDT Mitch Castellano janelle [facility] Procedures Code Procedure Name Date Entry Date Standard Desc ription CPT-JTINJ Asp/Joint Injection 18:47:02 CDT CPT-38706 Venipuncture Draw Fee 09:26:17 CDT CPT-31299 PT/INR - LAB USE ONLY 13:32:49 LINING FINISHER CPT-03062 Venipuncture Draw Fee 13:32:49 LINING FINISHER CPT-02476 PT/INR - LAB USE ONLY 10:34:49 LINING FINISHER CPT-84210 Venipuncture Draw Fee 10:34:48 LINING FINISHER CPT-88759 PT/INR - LAB USE ONLY 09:22:03 LINING FINISHER CPT-09192 Venipuncture Draw Fee 09:22:02 LINING FINISHER CPT-93653 Hemoccult IFOBT - LAB USE ONLY 10:27:22 CDT CPT-89286 Venipuncture Draw Fee 08:27:08 CDT CPT-09566 Liver Profile - LAB USE ONLY 08:27:07 CDT 2 CPT-31332 Microalbumin - LAB USE ONLY 08:27:07 CDT 20 25/05/09 CPT-33537 PT/INR - LAB USE ONLY 08:27:07 CDT CPT-37715 HGBA1C - LAB USE ONLY 08:27:07 CDT CPT-33382 CBC - LAB USE ONLY 08:27:07 CDT CPT-05033 Venipuncture Draw Fee 11:09:14 CDT CPT-26986 Venipuncture Draw Fee 08:32:21 LINING FINISHER CPT-38187 Venipuncture Draw Fee 09:38:56 LINING FINISHER CPT-66454 No Charge Offi Visit 21:36:07 CDT 1 CPT-10228 Venipuncture Draw Fee 10:13:28 LINING FINISHER CPT-40604 Venipuncture Draw Fee 08:31:11 CDT CPT-75148 Aspir/Inject Med Joint 18:17:28 CDT CPT-08858 Venipuncture Draw Fee 10:13:30 CDT CPT-47920 Venipuncture Draw Fee 08:31:43 LINING FINISHER CPT-JTINJ Joint Injection 18:34:50 CDT CPT-92485 Knee 3V 12:25:09 CDT CPT-80037 Venipuncture Draw Fee 12:15:57 CDT CPT-060 Medical Surveillance Exam 21:31:43 CDT 2011 CPT-44214 Venipuncture Draw Fee 08:32:05 LINING FINISHER CPT-OV Office Visit 18:19:06 CDT
--- OUTSIDE RECORDS SUMMARY | 2020-01-18 13:42 | XMS REPORT | Clinical Summary ---
Author Author Admin, Mitch Leon Organization [facility] [place] Address Unknown Phone Unavailable Allergies, Adverse Reactions, [...] Instructions Start Date Stop Date Generic Name [facility] Status Provider Patient Instruction GLIMEPIRIDE 4 MG ORAL TABLET 1 tablet by mouth twice daily f or diabetes GLIMEPIRIDE 79550927419 Active Mitch Urbina DO Active GLIMEPIRIDE 2 MG ORAL TABLET 1 po BID GLIMEPI RIDE 95631257693 No Longer Active Mitch Urbina DO Active AMLODIPINE BESYLATE 5 MG ORAL TABLET 1 tablet by mouth daily AMLODIPINE BESYLATE 77874730897 Active Mitch Urbina DO Active PROVIGIL 200 MG ORAL TABLET 1/2 tab po q day MODA FINIL 90925166298 Active Renee Oconnor STUDENT Active FAMOTIDINE 20 MG ORAL TABLET by mouth twice a day 2017 FAMOTIDINE 43301949963 No Longer Active Mitch Urbina DO Active COLCRYS 0.6 MG ORAL TABLET 1 tab qid prn gout C OLCHICINE 14836995281 No Longer Active Mitch Urbina DO Active KEFLEX 500 MG ORAL CAPSULE 1 po qid CEPHALEXI N 80346400888 No Longer Active Mitch Urbina DO Active LOSARTAN POTASSIUM 100 MG ORAL TABLET 1 pill by mouth daily, for blood pressure LOSARTAN POTASSIUM 99652035030 Active Ana Ocampo Active AMLODIPINE BESYLATE 5 MG ORAL TABLET 1 tablet by mouth daily 201 01/20/04 AMLODIPINE BESYLATE 10686459280 No Longer Active Joe fulton APRN Active MITIGARE 0.6 MG ORAL CAPSULE 2 capsules at onset of go ut pain, then take one capsule at 1 hour if symptoms persist. COLCHICINE 59 195892936 Active Mitch Urbina DO Active COUMADIN 1 MG ORAL TABLET 2 tabs orally daily with the 5mg tab to equal 7mg daily WARFARIN SODIUM 30765833237 Active Mitch Urbina DO Active INVOKANA 100 MG ORAL TABLET 1 tablet orally daily CANAGLIFLOZIN 56402587826 Active Ana Ocampo Active MINOXIDIL 2.5 MG ORAL TABLET 1 tablet daily for high blood press ure MINOXIDIL 17598722058 Active Renee Quirogamonserrat DE LA ROSA Active MECLIZINE HCL 25 MG ORAL TABLET 1 po tid 3 days, then 1/2 ta b tid 3 days MECLIZINE HCL 79610000832 No Longer Active Corey SEGURA Active ALLOPURINOL 300 MG ORAL TABLET Take 1 tablet by mouth daily 2012 ALLOPURINOL 14964553708 No Longer Active Corey SEGURA Active CLONIDINE HCL 0.1 MG ORAL TABLET 1 po bid 7 days, then 1/2 t ab po bid 7 days CLONIDINE HCL 41032632221 No Longer Active Corey SEGURA Active COUMADIN 5 MG ORAL TABLET 1 tab PO daily WARFAR IN SODIUM 91221478508 Active Mitch Urbina DO Active COUMADIN 4 MG ORAL TABLET 1 tablet daily WARFAR IN SODIUM 62210605840 No Longer Active Corey SEGURA Active POLYTRIM 47311-5.1 UNIT/ML-% OPHTHALMIC SOLUTION 1 rui p in affected eye every 3 hours while awake x 7 days POLYMYXIN B-TRIMETHOP RIM 74390836476 No Longer Active Corey SEGURA Active LOSARTAN POTASSIUM-HCTZ 100-12.5 MG ORAL TABLET 1 by m outh daily for high blood pressure LOSARTAN POTASSIUM-HCTZ 83954510196 No Longer A ctive Mitch Urbina DO Active LISINOPRIL-HYDROCHLOROTHIAZIDE 20-12.5 MG ORAL TABLET 1 tab by m outh daily LISINOPRIL-HYDROCHLOROTHIAZIDE 90179708807 No Longer Active Mitch Urbina DO Active LISINOPRIL 20 MG ORAL TABLET 1 tab po at HS LIS INOPRIL 36547427682 No Longer Active Mitch Urbina DO Active COUMADIN 5 MG ORAL TABLET 1 by mouth every other day 2 WARFARIN SODIUM 51627700237 No Longer Active Mitch Urbina DO Active COUMADIN 6 MG ORAL TABLET 1 by mouth every other day 2 WARFARIN SODIUM 42192512296 No Longer Active Mitch Urbina DO Active SIMVASTATIN 40 MG ORAL TABLET 1 tab daily at bedtime SIMVASTATIN 66195519918 Active Mitch Urbina DO Active SIMVASTATIN 20 MG ORAL TABLET 1 tab daily at bedtime 2 SIMVASTATIN 27932260234 No Longer Active Mitch Urbina DO Active LOVENOX 100 MG/ML SUBCUTANEOUS SOLUTION One injection twice a da y ENOXAPARIN SODIUM 34061670341 No Longer Active Carmine Yusuf MD Active JANUVIA 50 MG ORAL TABLET Take one by mouth daily SITAGLIPTIN PHOSPHATE 03301702446 Active Renee Elvin DE LA ROSA Active JANUVIA 100 MG ORAL TABLET 1/2 by mouth every day 2011 SITAGLIPTIN PHOSPHATE 52216955644 No Longer Active Bijal Segal RN Acti ve METFORMIN HCL 500 MG ORAL TABLET 2 by mouth twice daily METFORMIN HCL 08431544263 No Longer Active Renee Oconnor LPN Active COLCRYS 0.6 MG ORAL TABLET 1 po q 6 hours prn gout pain COLCHICINE 40901987526 No Longer Active Camila Reese Active LISINOPRIL 5 MG ORAL TABLET 1 by mouth every day 11/17 LISINOPRIL 76509669513 No Longer Active Nguyen Perez Active KLOR-CON 20 MEQ ORAL PACKET Take one by mouth daily 20 09/10/08 POTASSIUM CHLORIDE 41026732897 No Longer Active Nguyen Perez Active FUROSEMIDE 40 MG ORAL TABLET 1 by mouth daily F UROSEMIDE 22834205318 No Longer Active Nguyen Perez Active PROVIGIL 100 MG ORAL TABLET Take one by mouth daily 20 08/20/04 MODAFINIL 06634498602 No Longer Active Mitch Urbina DO Active BACTRIM DS 800-160 MG ORAL TABLET 1 tab by mouth twice daily 201 10/19/09 TRIMETHOPRIM-SULFAMETHOXAZOLE 09470103512 No Longer Active Elian Hays MD Active ADULT ASPIRIN LOW STRENGTH 81 MG ORAL TABLET DISINTEGR ATING 1 by mouth every daily ASPIRIN 36749307073 Active Mitch Ambrose Carlitos DO Ac tive METOPROLOL TARTRATE 50 MG ORAL TABLET 1 by mouth twice daily METOPROLOL TARTRATE 67971066612 Active Ana Ocampo Activ e BACTRIM DS 800-160 MG ORAL TABLET 1 tab by mouth twice daily 201 10/19/09 BACTRIM DS 800-160 MG ORAL TABLET 505331 TRIMETHOPRIM-SULFAMETHOXAZOLE Inactive PROVIGIL 100 MG ORAL TABLET Take one by mouth daily 08/20/04 PROVIGIL 100 MG ORAL TABLET 739023 MODAFINIL Inactive FUROSEMIDE 40 MG ORAL TABLET 1 by mouth daily FUROSEMIDE 40 MG ORAL TABLET 542820 FUROSEMIDE Inactive KLOR-CON 20 MEQ ORAL PACKET Take one by mouth daily 09/10/08 KLOR- CON 20 MEQ ORAL PACKET 8951691 POTASSIUM CHLORIDE Inactive LISINOPRIL 5 MG ORAL TABLET 1 by mouth every day 11/17 LISINOPRIL 5 MG ORAL TABLET 303334 LISINOPRIL Inactive COLCRYS 0.6 MG ORAL TABLET 1 po q 6 hours prn gout pain COLCRYS 0.6 MG ORAL TABLET 682467 COLCHICINE Inactive JANUVIA 100 MG ORAL TABLET 1/2 by mouth every day 2011 JANUVIA 100 MG ORAL TABLET SITAGLIPTIN PHOSPHATE Inactive SIMVASTATIN 20 MG ORAL TABLET 1 tab daily at bedtime 2 SIMVASTATIN 20 MG ORAL TABLET 832127 SIMVASTATIN Inactive COUMADIN 6 MG ORAL TABLET 1 by mouth every other day 2 COUMADIN 6 MG ORAL TABLET 208154 WARFARIN SODIUM Inactive COUMADIN 5 MG ORAL TABLET 1 by mouth every other day 2 COUMADIN 5 MG ORAL TABLET 301322 WARFARIN SODIUM Inactive LISINOPRIL 20 MG ORAL TABLET 1 tab po at HS LISINOPRIL 20 MG ORAL TABLET 629620 LISINOPRIL Inactive LISINOPRIL-HYDROCHLOROTHIAZIDE 20-12.5 MG ORAL TABLET 1 tab by m outh daily LISINOPRIL-HYDROCHLOROTHIAZIDE 20-12.5 MG ORAL TABLET 103608 LISINOPRIL-HYDROCHLOROTHIAZIDE Inactive POLYTRIM 74650-1.1 UNIT/ML-% OPHTHALMIC SOLUTION 1 rui p in affected eye every 3 hours while awake x 7 days POLYTRIM 1000 0-0.1 UNIT/ML-% OPHTHALMIC SOLUTION 190269 POLYMYXIN B-TRIMETHOPRIM Inactive COUMADIN 4 MG ORAL TABLET 1 tablet daily COUMADIN 4 MG ORAL TABLET 059869 WARFARIN SODIUM Inactive CLONIDINE HCL 0.1 MG ORAL TABLET 1 po bid 7 days, then 1/2 t ab po bid 7 days CLONIDINE HCL 0.1 MG ORAL TABLET 822636 CLONIDIN E HCL Inactive ALLOPURINOL 300 MG ORAL TABLET Take 1 tablet by mouth daily 2012 ALLOPURINOL 300 MG ORAL TABLET 309861 ALLOPURINOL I nactive MECLIZINE HCL 25 MG ORAL TABLET 1 po tid 3 days, then 1/2 ta b tid 3 days MECLIZINE HCL 25 MG ORAL TABLET 046362 MECLIZINE HCL Inactive AMLODIPINE BESYLATE 5 MG ORAL TABLET 1 tablet by mouth daily 201 01/20/04 AMLODIPINE BESYLATE 5 MG ORAL TABLET 164546 AMLODIPINE BESYLATE Inactive KEFLEX 500 MG ORAL CAPSULE 1 po qid K EFLEX 500 MG ORAL CAPSULE 802002 CEPHALEXIN Inactive COLCRYS 0.6 MG ORAL TABLET 1 tab qid prn gout COLCRYS 0.6 MG ORAL TABLET 406804 COLCHICINE Inactive FAMOTIDINE 20 MG ORAL TABLET by mouth twice a day 2017 FAMOTIDINE 20 MG ORAL TABLET 155025 FAMOTIDINE Inactive GLIMEPIRIDE 2 MG ORAL TABLET 1 po BID GLIMEPIRIDE 2 MG ORAL TABLET 012704 GLIMEPIRIDE Inactive LOVENOX 100 MG/ML SUBCUTANEOUS SOLUTION One injection twice a da y LOVENOX 100 MG/ML SUBCUTANEOUS SOLUTION 674599 ENOXAPAR IN SODIUM Inactive Vital Signs Date Name Value Unit Range Description blood pressure, diastolic 78 mm[Hg] BP mane blood pressure, systolic 165 mm[Hg] BP sys height E&M 70 [in_us] Bdy height pulse rate E&M 74 /min Heart rate temperature E&M 97.8 [degF] Body temp erature weight E&M 223 [lb_av] Weight Measure d blood pressure, diastolic 81 mm[Hg] BP amne blood pressure, systolic 161 mm[Hg] BP sys [...] 4.3-6.0 Encounters Code Encounter Date Provider Facility CPT-13502 [id number] Vst-Est Level IV 10:52:00 ASSOCIATE PROFESSOR OF RADIOLOGY Stephy Urbina [facility] CPT-96099 Level 3 Est. Patient 18:25:53 CDT Mitch Ambrose Nona luis [facility] CPT-90293 Level 3 Est. Patient 19:43:34 CDT Mitch Arnol Nona luis [facility] CPT-82409 Level 4 Est. Patient 09:30:18 CDT Mitch Ambrose Nona janelle [facility] CPT-32131 Level 3 Est. Patient 15:10:14 CDT Joe kamara [facility] CPT-96513 Level 3 Est. Patient 15:03:46 CDT Joe kamara [facility] CPT-21573 Level 3 Est. Patient 14:21:06 CDT Mitch Arnol Castellano janelle [facility] CPT-82288 Level 3 Est. Patient 14:52:06 CDT Joe Jason courtangela [facility] CPT-35335 Level 3 Est. Patient 09:34:30 ASSOCIATE PROFESSOR OF RADIOLOGY Mitch luis [facility] CPT-87817 Level 3 Est. Patient 09:37:15 CDT Mitch luis [facility] CPT-59322 Level 3 Est. Patient 17:01:00 ASSOCIATE PROFESSOR OF RADIOLOGY Mitch luis [facility] CPT-36795 Level 3 Est. Patient 13:53:19 ASSOCIATE PROFESSOR OF RADIOLOGY Mitch luis [facility] CPT-41347 Level 3 Est. Patient 19:19:37 ASSOCIATE PROFESSOR OF RADIOLOGY Mitch luis [facility] CPT-34745 Level 3 Est. Patient 13:25:53 ASSOCIATE PROFESSOR OF RADIOLOGY Tavo toure MD [facility] CPT-02621 Level 3 Est. Patient 18:17:28 CDT Mitch luis [facility] CPT-45867 Level 3 Est. Patient 15:22:57 CDT Mitch luis [facility] CPT-47992 Level 3 Est. Patient 18:21:50 CDT Mitch luis [facility] CPT-07260 Level 3 Est. Patient 18:20:38 CDT Mitch luis [facility] CPT-28189 Level 3 Est. Patient 15:37:55 CDT Mitch luis [facility] CPT-45794 Level 2 Est. Patient 15:54:44 CDT Carmine benton MD [facility] CPT-41138 Level 3 Est. Patient 21:46:01 ASSOCIATE PROFESSOR OF RADIOLOGY Mitch luis [facility] CPT-75408 Level 3 Est. Patient 22:15:50 CDT Mitch luis [facility] CPT-98288 Level 3 Est. Patient 10:48:15 CDT Mitch luis [facility] CPT-12978 Level 3 Est. Patient 23:20:57 CDT Tavo toure MD [facility] CPT-26647 Level 3 Est. Patient 16:26:13 CDT Mitch Arnol luis [facility] Procedures Code Procedure Name Date Entry Date Standard Desc ription CPT-JTINJ Asp/Joint Injection 18:47:02 CDT CPT-85621 Venipuncture Draw Fee 09:26:17 CDT CPT-17682 PT/INR - LAB USE ONLY 13:32:49 ASSOCIATE PROFESSOR OF RADIOLOGY CPT-04270 Venipuncture Draw Fee 13:32:49 ASSOCIATE PROFESSOR OF RADIOLOGY CPT-62892 PT/INR - LAB USE ONLY 10:34:49 ASSOCIATE PROFESSOR OF RADIOLOGY CPT-14612 Venipuncture Draw Fee 10:34:48 ASSOCIATE PROFESSOR OF RADIOLOGY CPT-17450 PT/INR - LAB USE ONLY 09:22:03 ASSOCIATE PROFESSOR OF RADIOLOGY CPT-83970 Venipuncture Draw Fee 09:22:02 ASSOCIATE PROFESSOR OF RADIOLOGY CPT-02741 Hemoccult IFOBT - LAB USE ONLY 10:27:22 CDT CPT-97840 Venipuncture Draw Fee 08:27:08 CDT CPT-23788 Liver Profile - LAB USE ONLY 08:27:07 CDT 2 CPT-79917 Microalbumin - LAB USE ONLY 08:27:07 CDT 20 25/05/09 CPT-60828 PT/INR - LAB USE ONLY 08:27:07 CDT CPT-92908 HGBA1C - LAB USE ONLY 08:27:07 CDT CPT-51481 CBC - LAB USE ONLY 08:27:07 CDT CPT-42944 Venipuncture Draw Fee 11:09:14 CDT CPT-58050 Venipuncture Draw Fee 08:32:21 ASSOCIATE PROFESSOR OF RADIOLOGY CPT-94543 Venipuncture Draw Fee 09:38:56 ASSOCIATE PROFESSOR OF RADIOLOGY CPT-85560 No Charge Offi Visit 21:36:07 CDT 1 CPT-48905 Venipuncture Draw Fee 10:13:28 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
--- OUTSIDE RECORDS SUMMARY | 2020-01-18 13:42 | XMS REPORT | Clinical Summary ---
[...] Instructions Start Date Stop Date Generic Name [facility] Status Provider Patient Instruction GLIMEPIRIDE 4 MG ORAL TABLET 1 tablet by mouth twice daily f or diabetes GLIMEPIRIDE 42114121417 Active Mitch Urbina DO Active GLIMEPIRIDE 2 MG ORAL TABLET 1 po BID GLIMEPI RIDE 04881516246 No Longer Active Mitch Urbina DO Active AMLODIPINE BESYLATE 5 MG ORAL TABLET 1 tablet by mouth daily AMLODIPINE BESYLATE 46558131094 Active Mitch Urbina DO Active PROVIGIL 200 MG ORAL TABLET 1/2 tab po q day MODA FINIL 34517999413 Active Renee Oconnor LPN Active FAMOTIDINE 20 MG ORAL TABLET by mouth twice a day 2017 FAMOTIDINE 49883988302 No Longer Active Mitch Urbina DO Active COLCRYS 0.6 MG ORAL TABLET 1 tab qid prn gout C OLCHICINE 43997562845 No Longer Active Mitch Urbina DO Active KEFLEX 500 MG ORAL CAPSULE 1 po qid CEPHALEXI N 12354079217 No Longer Active Mitch Urbina DO Active LOSARTAN POTASSIUM 100 MG ORAL TABLET 1 pill by mouth daily, for blood pressure LOSARTAN POTASSIUM 22647803098 Active Ana Ocampo Active AMLODIPINE BESYLATE 5 MG ORAL TABLET 1 tablet by mouth daily 201 01/20/04 AMLODIPINE BESYLATE 03197207829 No Longer Active Joe fulton APRN Active MITIGARE 0.6 MG ORAL CAPSULE 2 capsules at onset of go ut pain, then take one capsule at 1 hour if symptoms persist. COLCHICINE 59 125053440 Active Mitch Urbina DO Active COUMADIN 1 MG ORAL TABLET 2 tabs orally daily with the 5mg tab to equal 7mg daily WARFARIN SODIUM 48904092914 Active Mitch Arnol Urbina DO Active INVOKANA 100 MG ORAL TABLET 1 tablet orally daily CANAGLIFLOZIN 10100201137 Active Ana Ocampo Active MINOXIDIL 2.5 MG ORAL TABLET 1 tablet daily for high blood press ure MINOXIDIL 45577787230 Active Renee Quirogamonserrat DE LA ROSA Active MECLIZINE HCL 25 MG ORAL TABLET 1 po tid 3 days, then 1/2 ta b tid 3 days MECLIZINE HCL 95196501650 No Longer Active Corey SEGURA Active ALLOPURINOL 300 MG ORAL TABLET Take 1 tablet by mouth daily 2012 ALLOPURINOL 81239703681 No Longer Active Corey SEGURA Active CLONIDINE HCL 0.1 MG ORAL TABLET 1 po bid 7 days, then 1/2 t ab po bid 7 days CLONIDINE HCL 77870762608 No Longer Active Corey SEGURA Active COUMADIN 5 MG ORAL TABLET 1 tab PO daily WARFAR IN SODIUM 46313410095 Active Mitch Urbina DO Active COUMADIN 4 MG ORAL TABLET 1 tablet daily WARFAR IN SODIUM 72933664583 No Longer Active Corey SEGURA Active POLYTRIM 39981-2.1 UNIT/ML-% OPHTHALMIC SOLUTION 1 rui p in affected eye every 3 hours while awake x 7 days POLYMYXIN B-TRIMETHOP RIM 50336669833 No Longer Active Corey SEGURA Active LOSARTAN POTASSIUM-HCTZ 100-12.5 MG ORAL TABLET 1 by m outh daily for high blood pressure LOSARTAN POTASSIUM-HCTZ 57835923709 No Longer A ctive Mitch Urbina DO Active LISINOPRIL-HYDROCHLOROTHIAZIDE 20-12.5 MG ORAL TABLET 1 tab by m outh daily LISINOPRIL-HYDROCHLOROTHIAZIDE 49418136703 No Longer Active Mitch Urbina DO Active LISINOPRIL 20 MG ORAL TABLET 1 tab po at HS LIS INOPRIL 08669487006 No Longer Active Mitch Urbina DO Active COUMADIN 5 MG ORAL TABLET 1 by mouth every other day 2 WARFARIN SODIUM 19465320004 No Longer Active Mitch Urbina DO Active COUMADIN 6 MG ORAL TABLET 1 by mouth every other day 2 WARFARIN SODIUM 03490313699 No Longer Active Mitch Urbina DO Active SIMVASTATIN 40 MG ORAL TABLET 1 tab daily at bedtime SIMVASTATIN 71739839425 Active Mitch Urbina DO Active SIMVASTATIN 20 MG ORAL TABLET 1 tab daily at bedtime 2 SIMVASTATIN 13575968211 No Longer Active Mitch Urbina DO Active LOVENOX 100 MG/ML SUBCUTANEOUS SOLUTION One injection twice a da y ENOXAPARIN SODIUM 85775599675 No Longer Active Carmine Yusuf MD Active JANUVIA 50 MG ORAL TABLET Take one by mouth daily SITAGLIPTIN PHOSPHATE 09926973413 Active Renee Elvin DE LA ROSA Active JANUVIA 100 MG ORAL TABLET 1/2 by mouth every day 2011 SITAGLIPTIN PHOSPHATE 73972302875 No Longer Active Bijal Segal RN Acti ve METFORMIN HCL 500 MG ORAL TABLET 2 by mouth twice daily METFORMIN HCL 33857216451 No Longer Active Renee Oconnor LPN Active COLCRYS 0.6 MG ORAL TABLET 1 po q 6 hours prn gout pain COLCHICINE 27529036805 No Longer Active Camila Reese Active LISINOPRIL 5 MG ORAL TABLET 1 by mouth every day 11/17 LISINOPRIL 93368711273 No Longer Active Nguyen Perez Active KLOR-CON 20 MEQ ORAL PACKET Take one by mouth daily 20 09/10/08 POTASSIUM CHLORIDE 37928705651 No Longer Active Nguyen Perez Active FUROSEMIDE 40 MG ORAL TABLET 1 by mouth daily F UROSEMIDE 66326614226 No Longer Active Nguyen Perez Active PROVIGIL 100 MG ORAL TABLET Take one by mouth daily 08/20/04 MODAFINIL 49550001332 No Longer Active Mitch Urbina DO Active BACTRIM DS 800-160 MG ORAL TABLET 1 tab by mouth twice daily 201 10/19/09 TRIMETHOPRIM-SULFAMETHOXAZOLE 34614893426 No Longer Active Elian Hays MD Active ADULT ASPIRIN LOW STRENGTH 81 MG ORAL TABLET DISINTEGR ATING 1 by mouth every daily ASPIRIN 60062735776 Active Mitch Arnol Urbina DO Ac tive METOPROLOL TARTRATE 50 MG ORAL TABLET 1 by mouth twice daily METOPROLOL TARTRATE 19748133356 Active Ana Ocampo Activ e BACTRIM DS 800-160 MG ORAL TABLET 1 tab by mouth twice daily 201 10/19/09 BACTRIM DS 800-160 MG ORAL TABLET 377361 TRIMETHOPRIM-SULFAMETHOXAZOLE Inactive PROVIGIL 100 MG ORAL TABLET Take one by mouth daily 08/20/04 PROVIGIL 100 MG ORAL TABLET 505587 MODAFINIL Inactive FUROSEMIDE 40 MG ORAL TABLET 1 by mouth daily FUROSEMIDE 40 MG ORAL TABLET 483989 FUROSEMIDE Inactive KLOR-CON 20 MEQ ORAL PACKET Take one by mouth daily 09/10/08 KLOR- CON 20 MEQ ORAL PACKET 4631310 POTASSIUM CHLORIDE Inactive LISINOPRIL 5 MG ORAL TABLET 1 by mouth every day 11/17 LISINOPRIL 5 MG ORAL TABLET 448361 LISINOPRIL Inactive COLCRYS 0.6 MG ORAL TABLET 1 po q 6 hours prn gout pain COLCRYS 0.6 MG ORAL TABLET 269181 COLCHICINE Inactive JANUVIA 100 MG ORAL TABLET 1/2 by mouth every day 2011 JANUVIA 100 MG ORAL TABLET SITAGLIPTIN PHOSPHATE Inactive SIMVASTATIN 20 MG ORAL TABLET 1 tab daily at bedtime 2 SIMVASTATIN 20 MG ORAL TABLET 955509 SIMVASTATIN Inactive COUMADIN 6 MG ORAL TABLET 1 by mouth every other day 2 COUMADIN 6 MG ORAL TABLET 278111 WARFARIN SODIUM Inactive COUMADIN 5 MG ORAL TABLET 1 by mouth every other day 2 COUMADIN 5 MG ORAL TABLET 092236 WARFARIN SODIUM Inactive LISINOPRIL 20 MG ORAL TABLET 1 tab po at HS LISINOPRIL 20 MG ORAL TABLET 983597 LISINOPRIL Inactive LISINOPRIL-HYDROCHLOROTHIAZIDE 20-12.5 MG ORAL TABLET 1 tab by m outh daily LISINOPRIL-HYDROCHLOROTHIAZIDE 20-12.5 MG ORAL TABLET 950090 LISINOPRIL-HYDROCHLOROTHIAZIDE Inactive POLYTRIM 48857-9.1 UNIT/ML-% OPHTHALMIC SOLUTION 1 rui p in affected eye every 3 hours while awake x 7 days POLYTRIM 1000 0-0.1 UNIT/ML-% OPHTHALMIC SOLUTION 546123 POLYMYXIN B-TRIMETHOPRIM Inactive COUMADIN 4 MG ORAL TABLET 1 tablet daily COUMADIN 4 MG ORAL TABLET 437844 WARFARIN SODIUM Inactive CLONIDINE HCL 0.1 MG ORAL TABLET 1 po bid 7 days, then 1/2 t ab po bid 7 days CLONIDINE HCL 0.1 MG ORAL TABLET 311888 CLONIDIN E HCL Inactive ALLOPURINOL 300 MG ORAL TABLET Take 1 tablet by mouth daily 2012 ALLOPURINOL 300 MG ORAL TABLET 219689 ALLOPURINOL I nactive MECLIZINE HCL 25 MG ORAL TABLET 1 po tid 3 days, then 1/2 ta b tid 3 days MECLIZINE HCL 25 MG ORAL TABLET 276607 MECLIZINE HCL Inactive AMLODIPINE BESYLATE 5 MG ORAL TABLET 1 tablet by mouth daily 201 01/20/04 AMLODIPINE BESYLATE 5 MG ORAL TABLET 659660 AMLODIPINE BESYLATE Inactive KEFLEX 500 MG ORAL CAPSULE 1 po qid K EFLEX 500 MG ORAL CAPSULE 438955 CEPHALEXIN Inactive COLCRYS 0.6 MG ORAL TABLET 1 tab qid prn gout COLCRYS 0.6 MG ORAL TABLET 307548 COLCHICINE Inactive FAMOTIDINE 20 MG ORAL TABLET by mouth twice a day 2017 FAMOTIDINE 20 MG ORAL TABLET 420316 FAMOTIDINE Inactive GLIMEPIRIDE 2 MG ORAL TABLET 1 po BID GLIMEPIRIDE 2 MG ORAL TABLET 065421 GLIMEPIRIDE Inactive LOVENOX 100 MG/ML SUBCUTANEOUS SOLUTION One injection twice a da y LOVENOX 100 MG/ML SUBCUTANEOUS SOLUTION 947560 ENOXAPAR IN SODIUM Inactive Vital Signs Date [...] 4.3-6.0 Encounters Code Encounter Date Provider Facility CPT-94385 Level 3 Est. Patient 18:25:53 CDT Mitch luis [facility] CPT-21805 Level 3 Est. Patient 19:43:34 CDT Mitch W L janelle [facility] CPT-04770 Level 4 Est. Patient 09:30:18 CDT Mitch W L janelle [facility]-59789 Level 3 Est. Patient 15:10:14 CDT Devonjustincarlitos kamara [facility] CPT-73332 Level 3 Est. Patient 15:03:46 CDT Joe Jason kamara [facility]-89227 Level 3 Est. Patient 14:21:06 CDT Mitch Ambrose L janelle [facility] CPT-90074 Level 3 Est. Patient 14:52:06 CDT Joe Jason kamara [facility]-76702 Level 3 Est. Patient 09:34:30 [employer] Mitch W L janelle [facility]-02309 Level 3 Est. Patient 09:37:15 CDT Mitch W L janelle [facility]-29922 Level 3 Est. Patient 17:01:00 [employer] Mitch W L janelle [facility] CPT-00470 Level 3 Est. Patient 13:53:19 [employer] Mitch W L janelle [facility] CPT-07214 Level 3 Est. Patient 19:19:37 [employer] Mitch W L janelle [facility] CPT-92583 Level 3 Est. Patient 13:25:53 [employer] Tavo toure MD [facility]-28063 Level 3 Est. Patient 18:17:28 CDT Mitch W L ee [facility] CPT-35868 Level 3 Est. Patient 15:22:57 CDT Mitch W L ee [facility]-05321 Level 3 Est. Patient 18:21:50 CDT Mitch W L ee [facility]-98239 Level 3 Est. Patient 18:20:38 CDT Mitch W L ee [facility] CPT-05877 Level 3 Est. Patient 15:37:55 CDT Mitch Arnol Nona janelle [facility] CPT-55642 Level 2 Est. Patient 15:54:44 CDT Carmine benton MD [facility] CPT-76507 Level 3 Est. Patient 21:46:01 [employer] Mitch Ambrose Nona janelle [facility] CPT-52132 Level 3 Est. Patient 22:15:50 CDT Mitch luis [facility] CPT-01745 Level 3 Est. Patient 10:48:15 CDT Mitch Arnol Nona janelle [facility] CPT-17355 Level 3 Est. Patient 23:20:57 CDT Tavo toure MD [facility] CPT-89331 Level 3 Est. Patient 16:26:13 CDT Mitch luis [facility] Procedures Code Procedure Name Date Entry Date Standard Desc ription CPT-JTINJ Asp/Joint Injection 18:47:02 CDT CPT-79824 Venipuncture Draw Fee 09:26:17 CDT CPT-59692 PT/INR - LAB USE ONLY 13:32:49 [employer] CPT-10156 Venipuncture Draw Fee 13:32:49 [employer] CPT-68905 PT/INR - LAB USE ONLY 10:34:49 [employer] CPT-17610 Venipuncture Draw Fee 10:34:48 [employer] CPT-83199 PT/INR - LAB USE ONLY 09:22:03 [employer] CPT-07084 Venipuncture Draw Fee 09:22:02 [employer] CPT-31876 Hemoccult IFOBT - LAB USE ONLY 10:27:22 CDT CPT-15695 Venipuncture Draw Fee 08:27:08 CDT CPT-70831 Liver Profile - LAB USE ONLY 08:27:07 CDT 2 CPT-48143 Microalbumin - LAB USE ONLY 08:27:07 CDT 20 25/05/09 CPT-20702 PT/INR - LAB USE ONLY 08:27:07 CDT CPT-11942 HGBA1C - LAB USE ONLY 08:27:07 CDT CPT-20339 CBC - LAB USE ONLY 08:27:07 CDT CPT-46896 Venipuncture Draw Fee 11:09:14 CDT CPT-45650 Venipuncture Draw Fee 08:32:21 [employer] CPT-30120 Venipuncture Draw Fee 09:38:56 [employer] CPT-37575 No Charge Offi Visit 21:36:07 CDT 1 CPT-02391 Venipuncture Draw Fee 10:13:28 [employer] CPT-32482 Venipuncture Draw Fee 08:31:11 CDT CPT-22166 Aspir/Inject Med Joint 18:17:28 CDT CPT-03886 Venipuncture Draw Fee 10:13:30 CDT CPT-21388 Venipuncture Draw Fee 08:31:43 [employer] CPT-JTINJ Joint Injection 18:34:50 CDT CPT-11119 Knee 3V 12:25:09 CDT CPT-17179 Venipuncture Draw Fee 12:15:57 CDT CPT-060 Medical Surveillance Exam 21:31:43 CDT 2011 CPT-50667 Venipuncture Draw Fee 08:32:05 [employer] CPT-OV Office Visit 18:19:06 CDT
--- OUTSIDE RECORDS SUMMARY | 2020-01-18 13:42 | XMS REPORT | Clinical Summary ---
Author Author Admin, Mitch Leon Organization [facility] Address Unknown Phone Unavailable Allergies, Adverse [...] Start Date Stop Date Generic Name [facility] Status Provider Patient Instruction GLIMEPIRIDE 4 MG ORAL TABLET 1 tablet by mouth twice daily f or diabetes GLIMEPIRIDE 69055059225 Active Mitch Urbina DO Active GLIMEPIRIDE 2 MG ORAL TABLET 1 po BID GLIMEPI RIDE 87953141348 No Longer Active Mitch Urbina DO Active AMLODIPINE BESYLATE 5 MG ORAL TABLET 1 tablet by mouth daily AMLODIPINE BESYLATE 26767171745 Active Mitch Urbina DO Active PROVIGIL 200 MG ORAL TABLET 1/2 tab po q day MODA FINIL 99285803949 Active Renee Oconnor COAL DELIVERER Active FAMOTIDINE 20 MG ORAL TABLET by mouth twice a day 2017 FAMOTIDINE 65018737228 No Longer Active Mitch Urbina DO Active COLCRYS 0.6 MG ORAL TABLET 1 tab qid prn gout C OLCHICINE 15287945580 No Longer Active Mitch Urbina DO Active KEFLEX 500 MG ORAL CAPSULE 1 po qid CEPHALEXI N 22395982583 No Longer Active Mitch Urbina DO Active LOSARTAN POTASSIUM 100 MG ORAL TABLET 1 pill by mouth daily, for blood pressure LOSARTAN POTASSIUM 10784494212 Active Ana Ocampo Active AMLODIPINE BESYLATE 5 MG ORAL TABLET 1 tablet by mouth daily 201 01/20/04 AMLODIPINE BESYLATE 92434130560 No Longer Active Joe fulton APRN Active MITIGARE 0.6 MG ORAL CAPSULE 2 capsules at onset of go ut pain, then take one capsule at 1 hour if symptoms persist. COLCHICINE 59 777714783 Active Mitch Urbina DO Active COUMADIN 1 MG ORAL TABLET 2 tabs orally daily with the 5mg tab to equal 7mg daily WARFARIN SODIUM 38277114703 Active Mitch Urbina DO Active INVOKANA 100 MG ORAL TABLET 1 tablet orally daily CANAGLIFLOZIN 32254743352 Active Ana Ocampo Active MINOXIDIL 2.5 MG ORAL TABLET 1 tablet daily for high blood press ure MINOXIDIL 47557667619 Active Renee Quirogamonserrat DE LA ROSA Active MECLIZINE HCL 25 MG ORAL TABLET 1 po tid 3 days, then 1/2 ta b tid 3 days MECLIZINE HCL 39742237850 No Longer Active Corey SEGURA Active ALLOPURINOL 300 MG ORAL TABLET Take 1 tablet by mouth daily 2012 ALLOPURINOL 78791429805 No Longer Active Corey SEGURA Active CLONIDINE HCL 0.1 MG ORAL TABLET 1 po bid 7 days, then 1/2 t ab po bid 7 days CLONIDINE HCL 57923923529 No Longer Active Corey SEGURA Active COUMADIN 5 MG ORAL TABLET 1 tab PO daily WARFAR IN SODIUM 74093706901 Active Mitch Urbina DO Active COUMADIN 4 MG ORAL TABLET 1 tablet daily WARFAR IN SODIUM 71961626159 No Longer Active Corey SEGURA Active POLYTRIM 23593-7.1 UNIT/ML-% OPHTHALMIC SOLUTION 1 rui p in affected eye every 3 hours while awake x 7 days POLYMYXIN B-TRIMETHOP RIM 80460444280 No Longer Active Corey SEGURA Active LOSARTAN POTASSIUM-HCTZ 100-12.5 MG ORAL TABLET 1 by m outh daily for high blood pressure LOSARTAN POTASSIUM-HCTZ 52114035871 No Longer A ctive Mitch Urbina DO Active LISINOPRIL-HYDROCHLOROTHIAZIDE 20-12.5 MG ORAL TABLET 1 tab by m outh daily LISINOPRIL-HYDROCHLOROTHIAZIDE 66988407688 No Longer Active Mitch Urbina DO Active LISINOPRIL 20 MG ORAL TABLET 1 tab po at HS LIS INOPRIL 66140289009 No Longer Active Mitch Urbina DO Active COUMADIN 5 MG ORAL TABLET 1 by mouth every other day 2 WARFARIN SODIUM 58885365406 No Longer Active Mitch Urbina DO Active COUMADIN 6 MG ORAL TABLET 1 by mouth every other day 2 WARFARIN SODIUM 27002179854 No Longer Active Mitch Urbina DO Active SIMVASTATIN 40 MG ORAL TABLET 1 tab daily at bedtime SIMVASTATIN 94703505690 Active Renee Oconnor LPN Active SIMVASTATIN 20 MG ORAL TABLET 1 tab daily at bedtime 2 SIMVASTATIN 90640309574 No Longer Active Mitch Urbina DO Active LOVENOX 100 MG/ML SUBCUTANEOUS SOLUTION One injection twice a da y ENOXAPARIN SODIUM 85411985932 No Longer Active Carmine Yusuf MD Active JANUVIA 50 MG ORAL TABLET Take one by mouth daily SITAGLIPTIN PHOSPHATE 06727387387 Active Renee Elvin DE LA ROSA Active JANUVIA 100 MG ORAL TABLET 1/2 by mouth every day 2011 SITAGLIPTIN PHOSPHATE 16175934707 No Longer Active Bijal Segal RN Acti ve METFORMIN HCL 500 MG ORAL TABLET 2 by mouth twice daily METFORMIN HCL 31601614241 No Longer Active Renee Oconnor LPN Active COLCRYS 0.6 MG ORAL TABLET 1 po q 6 hours prn gout pain COLCHICINE 87805892695 No Longer Active Camila Reese Active LISINOPRIL 5 MG ORAL TABLET 1 by mouth every day 11/17 LISINOPRIL 49505008634 No Longer Active Nguyen Perez Active KLOR-CON 20 MEQ ORAL PACKET Take one by mouth daily 20 09/10/08 POTASSIUM CHLORIDE 76628627049 No Longer Active Nguyen Perez Active FUROSEMIDE 40 MG ORAL TABLET 1 by mouth daily F UROSEMIDE 96338279139 No Longer Active Nguyen Perez Active PROVIGIL 100 MG ORAL TABLET Take one by mouth daily 08/20/04 MODAFINIL 09666107605 No Longer Active Mitch Urbina DO Active BACTRIM DS 800-160 MG ORAL TABLET 1 tab by mouth twice daily 201 10/19/09 TRIMETHOPRIM-SULFAMETHOXAZOLE 95872351813 No Longer Active Elian Hays MD Active ADULT ASPIRIN LOW STRENGTH 81 MG ORAL TABLET DISINTEGR ATING 1 by mouth every daily ASPIRIN 39567260015 Active Mitch Urbina DO Ac tive METOPROLOL TARTRATE 50 MG ORAL TABLET 1 by mouth twice daily METOPROLOL TARTRATE 59045707122 Active Ana Ocampo Activ e BACTRIM DS 800-160 MG ORAL TABLET 1 tab by mouth twice daily 201 10/19/09 BACTRIM DS 800-160 MG ORAL TABLET 723029 TRIMETHOPRIM-SULFAMETHOXAZOLE Inactive PROVIGIL 100 MG ORAL TABLET Take one by mouth daily 08/20/04 PROVIGIL 100 MG ORAL TABLET 603778 MODAFINIL Inactive FUROSEMIDE 40 MG ORAL TABLET 1 by mouth daily FUROSEMIDE 40 MG ORAL TABLET 878109 FUROSEMIDE Inactive KLOR-CON 20 MEQ ORAL PACKET Take one by mouth daily 09/10/08 KLOR- CON 20 MEQ ORAL PACKET 1091206 POTASSIUM CHLORIDE Inactive LISINOPRIL 5 MG ORAL TABLET 1 by mouth every day 11/17 LISINOPRIL 5 MG ORAL TABLET 310009 LISINOPRIL Inactive COLCRYS 0.6 MG ORAL TABLET 1 po q 6 hours prn gout pain COLCRYS 0.6 MG ORAL TABLET 803295 COLCHICINE Inactive JANUVIA 100 MG ORAL TABLET 1/2 by mouth every day 2011 JANUVIA 100 MG ORAL TABLET SITAGLIPTIN PHOSPHATE Inactive SIMVASTATIN 20 MG ORAL TABLET 1 tab daily at bedtime 2 SIMVASTATIN 20 MG ORAL TABLET 117833 SIMVASTATIN Inactive COUMADIN 6 MG ORAL TABLET 1 by mouth every other day 2 COUMADIN 6 MG ORAL TABLET 224583 WARFARIN SODIUM Inactive COUMADIN 5 MG ORAL TABLET 1 by mouth every other day 2 COUMADIN 5 MG ORAL TABLET 815340 WARFARIN SODIUM Inactive LISINOPRIL 20 MG ORAL TABLET 1 tab po at HS LISINOPRIL 20 MG ORAL TABLET 203462 LISINOPRIL Inactive LISINOPRIL-HYDROCHLOROTHIAZIDE 20-12.5 MG ORAL TABLET 1 tab by m outh daily LISINOPRIL-HYDROCHLOROTHIAZIDE 20-12.5 MG ORAL TABLET 995541 LISINOPRIL-HYDROCHLOROTHIAZIDE Inactive POLYTRIM 77967-8.1 UNIT/ML-% OPHTHALMIC SOLUTION 1 rui p in affected eye every 3 hours while awake x 7 days POLYTRIM 1000 0-0.1 UNIT/ML-% OPHTHALMIC SOLUTION 091634 POLYMYXIN B-TRIMETHOPRIM Inactive COUMADIN 4 MG ORAL TABLET 1 tablet daily COUMADIN 4 MG ORAL TABLET 095297 WARFARIN SODIUM Inactive CLONIDINE HCL 0.1 MG ORAL TABLET 1 po bid 7 days, then 1/2 t ab po bid 7 days CLONIDINE HCL 0.1 MG ORAL TABLET 523996 CLONIDIN E HCL Inactive ALLOPURINOL 300 MG ORAL TABLET Take 1 tablet by mouth daily 2012 ALLOPURINOL 300 MG ORAL TABLET 387135 ALLOPURINOL I nactive MECLIZINE HCL 25 MG ORAL TABLET 1 po tid 3 days, then 1/2 ta b tid 3 days MECLIZINE HCL 25 MG ORAL TABLET 318273 MECLIZINE HCL Inactive AMLODIPINE BESYLATE 5 MG ORAL TABLET 1 tablet by mouth daily 201 01/20/04 AMLODIPINE BESYLATE 5 MG ORAL TABLET 319342 AMLODIPINE BESYLATE Inactive KEFLEX 500 MG ORAL CAPSULE 1 po qid K EFLEX 500 MG ORAL CAPSULE 221101 CEPHALEXIN Inactive COLCRYS 0.6 MG ORAL TABLET 1 tab qid prn gout COLCRYS 0.6 MG ORAL TABLET 134981 COLCHICINE Inactive FAMOTIDINE 20 MG ORAL TABLET by mouth twice a day 2017 FAMOTIDINE 20 MG ORAL TABLET 140815 FAMOTIDINE Inactive GLIMEPIRIDE 2 MG ORAL TABLET 1 po BID GLIMEPIRIDE 2 MG ORAL TABLET 280077 GLIMEPIRIDE Inactive LOVENOX 100 MG/ML SUBCUTANEOUS SOLUTION One injection twice a da y LOVENOX 100 MG/ML SUBCUTANEOUS SOLUTION 140369 ENOXAPAR IN SODIUM Inactive Vital Signs Date [...] 4.3-6.0 Encounters Code Encounter Date Provider Facility CPT-50003 Level 3 Est. Patient 18:25:53 CDT Mitch luis [facility] CPT-85435 Level 3 Est. Patient 19:43:34 CDT Mitch W L ee [facility] CPT-85358 Level 4 Est. Patient 09:30:18 CDT Mitch W L ee [facility]-15109 Level 3 Est. Patient 15:10:14 CDT Catherinecarlitos kamara [facility][note 3]-94515 Level 3 Est. Patient 15:03:46 CDT Joe Jason kamara [facility][note 3]-91921 Level 3 Est. Patient 14:21:06 CDT Mitch W L ee [facility] CPT-45907 Level 3 Est. Patient 14:52:06 CDT Joe Jason [facility]-41730 Level 3 Est. Patient 09:34:30 DAMPER WORKER Mitch W L janelle [facility]-21344 Level 3 Est. Patient 09:37:15 CDT Mitch W L ee [facility]-85714 Level 3 Est. Patient 17:01:00 DAMPER WORKER Mitch W L janelle [facility] CPT-02257 Level 3 Est. Patient 13:53:19 DAMPER WORKER Mitch W L ee [facility] CPT-13787 Level 3 Est. Patient 19:19:37 DAMPER WORKER Mitch W L janelle [facility] CPT-35517 Level 3 Est. Patient 13:25:53 DAMPER WORKER Tavo toure MD [facility]-42928 Level 3 Est. Patient 18:17:28 CDT Mitch W L ee [facility] CPT-99509 Level 3 Est. Patient 15:22:57 CDT Mitch W L ee [facility]-93236 Level 3 Est. Patient 18:21:50 CDT Mitch W L ee [facility]-26234 Level 3 Est. Patient 18:20:38 CDT Mitch W L ee [facility] CPT-44861 Level 3 Est. Patient 15:37:55 CDT Mitch Arnol Nona janelle [facility] CPT-55548 Level 2 Est. Patient 15:54:44 CDT Carmine benton MD [facility] CPT-70443 Level 3 Est. Patient 21:46:01 DAMPER WORKER Mitch Ambrose Nona luis [facility] CPT-33833 Level 3 Est. Patient 22:15:50 CDT Mitch luis [facility] CPT-10680 Level 3 Est. Patient 10:48:15 CDT Mitch luis [facility] CPT-28806 Level 3 Est. Patient 23:20:57 CDT Tavo toure MD [facility] CPT-01930 Level 3 Est. Patient 16:26:13 CDT Mitch luis [facility] Procedures Code Procedure Name Date Entry Date Standard Desc ription CPT-JTINJ Asp/Joint Injection 18:47:02 CDT CPT-03004 Venipuncture Draw Fee 09:26:17 CDT CPT-78107 PT/INR - LAB USE ONLY 13:32:49 DAMPER WORKER CPT-03647 Venipuncture Draw Fee 13:32:49 DAMPER WORKER CPT-35032 PT/INR - LAB USE ONLY 10:34:49 DAMPER WORKER CPT-73987 Venipuncture Draw Fee 10:34:48 DAMPER WORKER CPT-60028 PT/INR - LAB USE ONLY 09:22:03 DAMPER WORKER CPT-10864 Venipuncture Draw Fee 09:22:02 DAMPER WORKER CPT-76118 Hemoccult IFOBT - LAB USE ONLY 10:27:22 CDT CPT-59617 Venipuncture Draw Fee 08:27:08 CDT CPT-19648 Liver Profile - LAB USE ONLY 08:27:07 CDT 2 CPT-36426 Microalbumin - LAB USE ONLY 08:27:07 CDT 20 25/05/09 CPT-45121 PT/INR - LAB USE ONLY 08:27:07 CDT CPT-29946 HGBA1C - LAB USE ONLY 08:27:07 CDT CPT-60194 CBC - LAB USE ONLY 08:27:07 CDT CPT-19700 Venipuncture Draw Fee 11:09:14 CDT CPT-55092 Venipuncture Draw Fee 08:32:21 DAMPER WORKER CPT-28101 Venipuncture Draw Fee 09:38:56 DAMPER WORKER CPT-86708 No Charge Offi Visit 21:36:07 CDT 1 CPT-77723 Venipuncture Draw Fee 10:13:28 DAMPER WORKER CPT-92882 Venipuncture Draw Fee 08:31:11 CDT CPT-62570 Aspir/Inject Med Joint 18:17:28 CDT CPT-17666 Venipuncture Draw Fee 10:13:30 CDT CPT-53284 Venipuncture Draw Fee 08:31:43 DAMPER WORKER CPT-JTINJ Joint Injection 18:34:50 CDT CPT-10902 Knee 3V 12:25:09 CDT CPT-15571 Venipuncture Draw Fee 12:15:57 CDT CPT-060 Medical Surveillance Exam 21:31:43 CDT 2011 CPT-64755 Venipuncture Draw Fee 08:32:05 DAMPER WORKER CPT-OV Office Visit 18:19:06 CDT
--- OUTSIDE RECORDS SUMMARY | 2020-01-18 13:43 | XMS REPORT | Clinical Summary ---
[...] Coronary atherosclerosis of unspecified type of vessel, [place] or graft EDEMA 782.3 Resolved Mitch Urbina [...] of anticoagulants Valve replacement V43.3 Active Mithc Urbina DO Heart valve replaced by other [...] 10/23 GOUT, RIGHT WRIST ICD-274.9 Inactive Mitch mAbrose Le e DO BRUISE ICD-924.9 Inactive Mitch [...] Start Date Stop Date Generic Name [facility] Status Provider Patient Instruction GLIMEPIRIDE 4 MG ORAL TABLET 1 tablet by mouth twice daily f or diabetes GLIMEPIRIDE 55802654992 Active Mitch Urbina DO Active GLIMEPIRIDE 2 MG ORAL TABLET 1 po BID GLIMEPI RIDE 21160583699 No Longer Active Mitch Urbina DO Active AMLODIPINE BESYLATE 5 MG ORAL TABLET 1 tablet by mouth daily AMLODIPINE BESYLATE 25207053418 Active Mitch Urbina DO Active PROVIGIL 200 MG ORAL TABLET 1/2 tab po q day MODA FINIL 96422342845 Active 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 FAMOTIDINE 20 MG ORAL TABLET by mouth twice a day 2017 FAMOTIDINE 86396378715 No Longer Active Mitch Urbina DO Active COLCRYS 0.6 MG ORAL TABLET 1 tab qid prn gout C OLCHICINE 36828385123 No Longer Active Mitch Urbina DO Active KEFLEX 500 MG ORAL CAPSULE 1 po qid CEPHALEXI N 73737499281 No Longer Active Mitch Urbina DO Active LOSARTAN POTASSIUM 100 MG ORAL TABLET 1 pill by mouth daily, for blood pressure LOSARTAN POTASSIUM 93454365887 Active Ana Ocampo Active AMLODIPINE BESYLATE 5 MG ORAL TABLET 1 tablet by mouth daily 201 01/20/04 AMLODIPINE BESYLATE 65240471352 No Longer Active Joe fulton APRN Active MITIGARE 0.6 MG ORAL CAPSULE 2 capsules at onset of go ut pain, then take one capsule at 1 hour if symptoms persist. COLCHICINE 59 149774385 Active Mitch Urbina DO Active COUMADIN 1 MG ORAL TABLET 2 tabs orally daily with the 5mg tab to equal 7mg daily WARFARIN SODIUM 01239314055 Active Mitch Urbina DO Active INVOKANA 100 MG ORAL TABLET 1 tablet orally daily CANAGLIFLOZIN 65445637128 Active Ana Ocampo Active MINOXIDIL 2.5 MG ORAL TABLET 1 tablet daily for high blood press ure MINOXIDIL 40860996804 Active Renee Quirogamonserrat DE LA ROSA Active MECLIZINE HCL 25 MG ORAL TABLET 1 po tid 3 days, then 1/2 ta b tid 3 days MECLIZINE HCL 34074634221 No Longer Active Corey SEGURA Active ALLOPURINOL 300 MG ORAL TABLET Take 1 tablet by mouth daily 2012 ALLOPURINOL 81698032319 No Longer Active Corey SEGURA Active CLONIDINE HCL 0.1 MG ORAL TABLET 1 po bid 7 days, then 1/2 t ab po bid 7 days CLONIDINE HCL 33621846027 No Longer Active Corey SEGURA Active COUMADIN 5 MG ORAL TABLET 1 tab PO daily WARFAR IN SODIUM 65108429074 Active Mitch Urbina DO Active COUMADIN 4 MG ORAL TABLET 1 tablet daily WARFAR IN SODIUM 72827388322 No Longer Active Corey SEGURA Active POLYTRIM 59379-3.1 UNIT/ML-% OPHTHALMIC SOLUTION 1 rui p in affected eye every 3 hours while awake x 7 days POLYMYXIN B-TRIMETHOP RIM 99513641342 No Longer Active Corey SEGURA Active LOSARTAN POTASSIUM-HCTZ 100-12.5 MG ORAL TABLET 1 by m outh daily for high blood pressure LOSARTAN POTASSIUM-HCTZ 84523246364 No Longer A ctive Mitch Urbina DO Active LISINOPRIL-HYDROCHLOROTHIAZIDE 20-12.5 MG ORAL TABLET 1 tab by m outh daily LISINOPRIL-HYDROCHLOROTHIAZIDE 61004656389 No Longer Active Mitch Urbina DO Active LISINOPRIL 20 MG ORAL TABLET 1 tab po at HS LIS INOPRIL 40753207698 No Longer Active Mitch Urbina DO Active COUMADIN 5 MG ORAL TABLET 1 by mouth every other day 2 WARFARIN SODIUM 61331135669 No Longer Active Mitch Urbina DO Active COUMADIN 6 MG ORAL TABLET 1 by mouth every other day 2 WARFARIN SODIUM 56480225815 No Longer Active Mitch Urbina DO Active SIMVASTATIN 40 MG ORAL TABLET 1 tab daily at bedtime SIMVASTATIN 83617801391 Active Mitch Urbina DO Active SIMVASTATIN 20 MG ORAL TABLET 1 tab daily at bedtime 2 SIMVASTATIN 81629959813 No Longer Active Mitch Urbina DO Active LOVENOX 100 MG/ML SUBCUTANEOUS SOLUTION One injection twice a da y ENOXAPARIN SODIUM 16681006628 No Longer Active Carmine Yusuf MD Active JANUVIA 50 MG ORAL TABLET Take one by mouth daily SITAGLIPTIN PHOSPHATE 43996691522 Active Renee Elvin DE LA ROSA Active JANUVIA 100 MG ORAL TABLET 1/2 by mouth every day 2011 SITAGLIPTIN PHOSPHATE 73054550188 No Longer Active Bijal Segal RN Acti ve METFORMIN HCL 500 MG ORAL TABLET 2 by mouth twice daily METFORMIN HCL 74994988430 No Longer Active Renee Oconnor LPN Active COLCRYS 0.6 MG ORAL TABLET 1 po q 6 hours prn gout pain COLCHICINE 08200039616 No Longer Active Camila Reese Active LISINOPRIL 5 MG ORAL TABLET 1 by mouth every day 11/17 LISINOPRIL 18168875945 No Longer Active Nguyen Perez Active KLOR-CON 20 MEQ ORAL PACKET Take one by mouth daily 20 09/10/08 POTASSIUM CHLORIDE 35347059776 No Longer Active Nguyen Perez Active FUROSEMIDE 40 MG ORAL TABLET 1 by mouth daily F UROSEMIDE 06793327543 No Longer Active Nguyen Perez Active PROVIGIL 100 MG ORAL TABLET Take one by mouth daily 20 08/20/04 MODAFINIL 61535672532 No Longer Active Mitch Urbina DO Active BACTRIM DS 800-160 MG ORAL TABLET 1 tab by mouth twice daily 201 10/19/09 TRIMETHOPRIM-SULFAMETHOXAZOLE 83908117884 No Longer Active Elian Hays MD Active ADULT ASPIRIN LOW STRENGTH 81 MG ORAL TABLET DISINTEGR ATING 1 by mouth every daily ASPIRIN 07574314142 Active Mitch Ambrose Carlitos DO Ac tive METOPROLOL TARTRATE 50 MG ORAL TABLET 1 by mouth twice daily METOPROLOL TARTRATE 04107493137 Active Ana Ocampo Activ e BACTRIM DS 800-160 MG ORAL TABLET 1 tab by mouth twice daily 201 10/19/09 BACTRIM DS 800-160 MG ORAL TABLET 768682 TRIMETHOPRIM-SULFAMETHOXAZOLE Inactive PROVIGIL 100 MG ORAL TABLET Take one by mouth daily 08/20/04 PROVIGIL 100 MG ORAL TABLET 171309 MODAFINIL Inactive FUROSEMIDE 40 MG ORAL TABLET 1 by mouth daily FUROSEMIDE 40 MG ORAL TABLET 059219 FUROSEMIDE Inactive KLOR-CON 20 MEQ ORAL PACKET Take one by mouth daily 09/10/08 KLOR- CON 20 MEQ ORAL PACKET 4816219 POTASSIUM CHLORIDE Inactive LISINOPRIL 5 MG ORAL TABLET 1 by mouth every day 11/17 LISINOPRIL 5 MG ORAL TABLET 887261 LISINOPRIL Inactive COLCRYS 0.6 MG ORAL TABLET 1 po q 6 hours prn gout pain COLCRYS 0.6 MG ORAL TABLET 742409 COLCHICINE Inactive JANUVIA 100 MG ORAL TABLET 1/2 by mouth every day 2011 JANUVIA 100 MG ORAL TABLET SITAGLIPTIN PHOSPHATE Inactive SIMVASTATIN 20 MG ORAL TABLET 1 tab daily at bedtime 2 SIMVASTATIN 20 MG ORAL TABLET 990262 SIMVASTATIN Inactive COUMADIN 6 MG ORAL TABLET 1 by mouth every other day 2 COUMADIN 6 MG ORAL TABLET 128875 WARFARIN SODIUM Inactive COUMADIN 5 MG ORAL TABLET 1 by mouth every other day 2 COUMADIN 5 MG ORAL TABLET 475863 WARFARIN SODIUM Inactive LISINOPRIL 20 MG ORAL TABLET 1 tab po at HS LISINOPRIL 20 MG ORAL TABLET 770126 LISINOPRIL Inactive LISINOPRIL-HYDROCHLOROTHIAZIDE 20-12.5 MG ORAL TABLET 1 tab by m outh daily LISINOPRIL-HYDROCHLOROTHIAZIDE 20-12.5 MG ORAL TABLET 242300 LISINOPRIL-HYDROCHLOROTHIAZIDE Inactive POLYTRIM 28295-1.1 UNIT/ML-% OPHTHALMIC SOLUTION 1 rui p in affected eye every 3 hours while awake x 7 days POLYTRIM 1000 0-0.1 UNIT/ML-% OPHTHALMIC SOLUTION 334607 POLYMYXIN B-TRIMETHOPRIM Inactive COUMADIN 4 MG ORAL TABLET 1 tablet daily COUMADIN 4 MG ORAL TABLET 233712 WARFARIN SODIUM Inactive CLONIDINE HCL 0.1 MG ORAL TABLET 1 po bid 7 days, then 1/2 t ab po bid 7 days CLONIDINE HCL 0.1 MG ORAL TABLET 923907 CLONIDIN E HCL Inactive ALLOPURINOL 300 MG ORAL TABLET Take 1 tablet by mouth daily 2012 ALLOPURINOL 300 MG ORAL TABLET 183730 ALLOPURINOL I nactive MECLIZINE HCL 25 MG ORAL TABLET 1 po tid 3 days, then 1/2 ta b tid 3 days MECLIZINE HCL 25 MG ORAL TABLET 991865 MECLIZINE HCL Inactive AMLODIPINE BESYLATE 5 MG ORAL TABLET 1 tablet by mouth daily 201 01/20/04 AMLODIPINE BESYLATE 5 MG ORAL TABLET 641855 AMLODIPINE BESYLATE Inactive KEFLEX 500 MG ORAL CAPSULE 1 po qid K EFLEX 500 MG ORAL CAPSULE 779092 CEPHALEXIN Inactive COLCRYS 0.6 MG ORAL TABLET 1 tab qid prn gout COLCRYS 0.6 MG ORAL TABLET 696239 COLCHICINE Inactive FAMOTIDINE 20 MG ORAL TABLET by mouth twice a day 2017 FAMOTIDINE 20 MG ORAL TABLET 224415 FAMOTIDINE Inactive GLIMEPIRIDE 2 MG ORAL TABLET 1 po BID GLIMEPIRIDE 2 MG ORAL TABLET 686361 GLIMEPIRIDE Inactive LOVENOX 100 MG/ML SUBCUTANEOUS SOLUTION One injection twice a da y LOVENOX 100 MG/ML SUBCUTANEOUS SOLUTION 487589 ENOXAPAR IN SODIUM Inactive Vital Signs Date [...] 4.3-6.0 Encounters Code Encounter Date Provider Facility CPT-48594 [id number] Vst-Est Level IV 10:52:00 [employer] Stephy Urbina [facility] CPT-12526 Level 3 Est. Patient 18:25:53 CDT Mitch Ambrose Nona luis [facility] CPT-56082 Level 3 Est. Patient 19:43:34 CDT Mitch Arnol Nona luis [facility] CPT-16041 Level 4 Est. Patient 09:30:18 CDT Mitch Ambrose Nona janelle [facility] CPT-56766 Level 3 Est. Patient 15:10:14 CDT Joe kamara [facility] [place] CPT-90750 Level 3 Est. Patient 15:03:46 CDT Joe kamara [facility] CPT-86163 Level 3 Est. Patient 14:21:06 CDT Mitch Arnol Castellano janelle [facility] CPT-66526 Level 3 Est. Patient 14:52:06 CDT Joe Jason courtangela [facility] [place] CPT-39284 Level 3 Est. Patient 09:34:30 [employer] Mitch luis [facility] CPT-32293 Level 3 Est. Patient 09:37:15 CDT Mitch luis [facility] CPT-96704 Level 3 Est. Patient 17:01:00 [employer] Mitch luis [facility] CPT-60972 Level 3 Est. Patient 13:53:19 [employer] Mitch luis [facility] CPT-11405 Level 3 Est. Patient 19:19:37 [employer] Mitch luis [facility] CPT-12762 Level 3 Est. Patient 13:25:53 [employer] Tavo toure MD [facility] CPT-19586 Level 3 Est. Patient 18:17:28 CDT Mitch luis [facility] CPT-77261 Level 3 Est. Patient 15:22:57 CDT Mitch luis [facility] CPT-85368 Level 3 Est. Patient 18:21:50 CDT Mitch luis [facility] CPT-42759 Level 3 Est. Patient 18:20:38 CDT Mitch luis [facility] CPT-14824 Level 3 Est. Patient 15:37:55 CDT Mitch luis [facility] CPT-70300 Level 2 Est. Patient 15:54:44 CDT Carmine benton MD [facility] CPT-43102 Level 3 Est. Patient 21:46:01 [employer] Mitch luis [facility] CPT-66633 Level 3 Est. Patient 22:15:50 CDT Mitch luis [facility] CPT-46415 Level 3 Est. Patient 10:48:15 CDT Mitch luis [facility] CPT-94933 Level 3 Est. Patient 23:20:57 CDT Tavo toure MD [facility] CPT-53706 Level 3 Est. Patient 16:26:13 CDT Mitch Arnol luis [facility] Procedures Code Procedure Name Date Entry Date Standard Desc ription CPT-JTINJ Asp/Joint Injection 18:47:02 CDT CPT-77381 Venipuncture Draw Fee 09:26:17 CDT CPT-70288 PT/INR - LAB USE ONLY 13:32:49 [employer] CPT-59747 Venipuncture Draw Fee 13:32:49 [employer] CPT-76490 PT/INR - LAB USE ONLY 10:34:49 [employer] CPT-94410 Venipuncture Draw Fee 10:34:48 [employer] CPT-13510 PT/INR - LAB USE ONLY 09:22:03 [employer] CPT-58369 Venipuncture Draw Fee 09:22:02 [employer] CPT-52450 Hemoccult IFOBT - LAB USE ONLY 10:27:22 CDT CPT-60812 Venipuncture Draw Fee 08:27:08 CDT CPT-92944 Liver Profile - LAB USE ONLY 08:27:07 CDT 2 CPT-25853 Microalbumin - LAB USE ONLY 08:27:07 CDT 20 25/05/09 CPT-03775 PT/INR - LAB USE ONLY 08:27:07 CDT CPT-63844 HGBA1C - LAB USE ONLY 08:27:07 CDT CPT-43064 CBC - LAB USE ONLY 08:27:07 CDT CPT-03689 Venipuncture Draw Fee 11:09:14 CDT CPT-38992 Venipuncture Draw Fee 08:32:21 [employer] CPT-48485 Venipuncture Draw Fee 09:38:56 [employer] CPT-05476 No Charge Offi Visit 21:36:07 CDT 1 CPT-86267 Venipuncture Draw Fee 10:13:28 [employer] CPT-18591 Venipuncture Draw Fee 08:31:11 CDT CPT-82466 Aspir/Inject Med Joint 18:17:28 CDT CPT-84393 Venipuncture Draw Fee 10:13:30 CDT CPT-61883 Venipuncture Draw Fee 08:31:43 [employer] CPT-JTINJ Joint Injection 18:34:50 CDT CPT-43400 Knee 3V 12:25:09 CDT CPT-78871 Venipuncture Draw Fee 12:15:57 CDT CPT-060 Medical Surveillance Exam 21:31:43 CDT 2011 CPT-79077 Venipuncture Draw Fee 08:32:05 [employer] CPT-OV Office Visit 18:19:06 CDT
--- OUTSIDE RECORDS SUMMARY | 2020-01-18 13:43 | XMS REPORT | Clinical Summary ---
Author Author Admin, Mitch Leon Organization [facility] Address Unknown Phone Unavailable Allergies, Adverse Reactions, [...] Instructions Start Date Stop Date Generic Name [facility] Status Provider Patient Instruction GLIMEPIRIDE 4 MG ORAL TABLET 1 tablet by mouth twice daily f or diabetes GLIMEPIRIDE 99870022976 Active Mitch Urbina DO Active GLIMEPIRIDE 2 MG ORAL TABLET 1 po BID GLIMEPI RIDE 40592162221 No Longer Active Mitch Urbina DO Active AMLODIPINE BESYLATE 5 MG ORAL TABLET 1 tablet by mouth daily AMLODIPINE BESYLATE 75301539633 Active Mitch Urbina DO Active PROVIGIL 200 MG ORAL TABLET 1/2 tab po q day MODA FINIL 23581386585 Active Renee 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 FAMOTIDINE 20 MG ORAL TABLET by mouth twice a day 2017 FAMOTIDINE 39124459796 No Longer Active Mitch Urbina DO Active COLCRYS 0.6 MG ORAL TABLET 1 tab qid prn gout C OLCHICINE 96244753954 No Longer Active Mitch Urbina DO Active KEFLEX 500 MG ORAL CAPSULE 1 po qid CEPHALEXI N 90572942229 No Longer Active Mitch Urbina DO Active LOSARTAN POTASSIUM 100 MG ORAL TABLET 1 pill by mouth daily, for blood pressure LOSARTAN POTASSIUM 10510998675 Active Ana Ocampo Active AMLODIPINE BESYLATE 5 MG ORAL TABLET 1 tablet by mouth daily 201 01/20/04 AMLODIPINE BESYLATE 32472459494 No Longer Active Joe fulton APRN Active MITIGARE 0.6 MG ORAL CAPSULE 2 capsules at onset of go ut pain, then take one capsule at 1 hour if symptoms persist. COLCHICINE 59 250751754 Active Mitch Urbina DO Active COUMADIN 1 MG ORAL TABLET 2 tabs orally daily with the 5mg tab to equal 7mg daily WARFARIN SODIUM 11932304275 Active Mitch Urbina DO Active INVOKANA 100 MG ORAL TABLET 1 tablet orally daily CANAGLIFLOZIN 95470783918 Active Ana Ocampo Active MINOXIDIL 2.5 MG ORAL TABLET 1 tablet daily for high blood press ure MINOXIDIL 53005479409 Active Renee Quirogamonserrat DE [place] ROSA Active MECLIZINE HCL 25 MG ORAL TABLET 1 po tid 3 days, then 1/2 ta b tid 3 days MECLIZINE HCL 24720018237 No Longer Active Corey SEGURA Active ALLOPURINOL 300 MG ORAL TABLET Take 1 tablet by mouth daily 2012 ALLOPURINOL 45794498451 No Longer Active Corey SEGURA Active CLONIDINE HCL 0.1 MG ORAL TABLET 1 po bid 7 days, then 1/2 t ab po bid 7 days CLONIDINE HCL 01043941211 No Longer Active Corey SEGURA Active COUMADIN 5 MG ORAL TABLET 1 tab PO daily WARFAR IN SODIUM 51483958519 Active Mitch Urbina DO Active COUMADIN 4 MG ORAL TABLET 1 tablet daily WARFAR IN SODIUM 41888969100 No Longer Active Corey SEGURA Active POLYTRIM 65579-9.1 UNIT/ML-% OPHTHALMIC SOLUTION 1 rui p in affected eye every 3 hours while awake x 7 days POLYMYXIN B-TRIMETHOP RIM 57952598104 No Longer Active Corey SEGURA Active LOSARTAN POTASSIUM-HCTZ 100-12.5 MG ORAL TABLET 1 by m outh daily for high blood pressure LOSARTAN POTASSIUM-HCTZ 71671296999 No Longer A ctive Mitch Urbina DO Active LISINOPRIL-HYDROCHLOROTHIAZIDE 20-12.5 MG ORAL TABLET 1 tab by m outh daily LISINOPRIL-HYDROCHLOROTHIAZIDE 85637791892 No Longer Active Mitch Urbina DO Active LISINOPRIL 20 MG ORAL TABLET 1 tab po at HS LIS INOPRIL 59195876115 No Longer Active Mitch Urbina DO Active COUMADIN 5 MG ORAL TABLET 1 by mouth every other day 2 WARFARIN SODIUM 64742188600 No Longer Active Mitch Urbina DO Active COUMADIN 6 MG ORAL TABLET 1 by mouth every other day 2 WARFARIN SODIUM 06391684444 No Longer Active Mitch Urbina DO Active SIMVASTATIN 40 MG ORAL TABLET 1 tab daily at bedtime SIMVASTATIN 65246756755 Active Mitch Urbina DO Active SIMVASTATIN 20 MG ORAL TABLET 1 tab daily at bedtime 2 SIMVASTATIN 27328420938 No Longer Active Mitch Urbina DO Active LOVENOX 100 MG/ML SUBCUTANEOUS SOLUTION One injection twice a da y ENOXAPARIN SODIUM 57683305195 No Longer Active Carmine Yusuf MD Active JANUVIA 50 MG ORAL TABLET Take one by mouth daily SITAGLIPTIN PHOSPHATE 27628428902 Active Renee Elvin DE LA ROSA Active JANUVIA 100 MG ORAL TABLET 1/2 by mouth every day 2011 SITAGLIPTIN PHOSPHATE 38522830252 No Longer Active Bijal Segal RN Acti ve METFORMIN HCL 500 MG ORAL TABLET 2 by mouth twice daily METFORMIN HCL 54130018189 No Longer Active Renee Oconnor LPN Active COLCRYS 0.6 MG ORAL TABLET 1 po q 6 hours prn gout pain COLCHICINE 75468586437 No Longer Active Camila Reese Active LISINOPRIL 5 MG ORAL TABLET 1 by mouth every day 11/17 LISINOPRIL 12194422055 No Longer Active Nguyen Perez Active KLOR-CON 20 MEQ ORAL PACKET Take one by mouth daily 20 09/10/08 POTASSIUM CHLORIDE 65531700521 No Longer Active Nguyen Perez Active FUROSEMIDE 40 MG ORAL TABLET 1 by mouth daily F UROSEMIDE 46249933939 No Longer Active Nguyen Perez Active PROVIGIL 100 MG ORAL TABLET Take one by mouth daily 20 08/20/04 MODAFINIL 30107161128 No Longer Active Mitch Urbina DO Active BACTRIM DS 800-160 MG ORAL TABLET 1 tab by mouth twice daily 201 10/19/09 TRIMETHOPRIM-SULFAMETHOXAZOLE 20195696059 No Longer Active Elian Hays MD Active ADULT ASPIRIN LOW STRENGTH 81 MG ORAL TABLET DISINTEGR ATING 1 by mouth every daily ASPIRIN 95481114894 Active Mitch Ambrose Carlitos DO Ac tive METOPROLOL TARTRATE 50 MG ORAL TABLET 1 by mouth twice daily METOPROLOL TARTRATE 87988560353 Active Ana Ocampo Activ e BACTRIM DS 800-160 MG ORAL TABLET 1 tab by mouth twice daily 201 10/19/09 BACTRIM DS 800-160 MG ORAL TABLET 533966 TRIMETHOPRIM-SULFAMETHOXAZOLE Inactive PROVIGIL 100 MG ORAL TABLET Take one by mouth daily 08/20/04 PROVIGIL 100 MG ORAL TABLET 879725 MODAFINIL Inactive FUROSEMIDE 40 MG ORAL TABLET 1 by mouth daily FUROSEMIDE 40 MG ORAL TABLET 823197 FUROSEMIDE Inactive KLOR-CON 20 MEQ ORAL PACKET Take one by mouth daily 09/10/08 KLOR- CON 20 MEQ ORAL PACKET 8709645 POTASSIUM CHLORIDE Inactive LISINOPRIL 5 MG ORAL TABLET 1 by mouth every day 11/17 LISINOPRIL 5 MG ORAL TABLET 598162 LISINOPRIL Inactive COLCRYS 0.6 MG ORAL TABLET 1 po q 6 hours prn gout pain COLCRYS 0.6 MG ORAL TABLET 693264 COLCHICINE Inactive JANUVIA 100 MG ORAL TABLET 1/2 by mouth every day 2011 JANUVIA 100 MG ORAL TABLET SITAGLIPTIN PHOSPHATE Inactive SIMVASTATIN 20 MG ORAL TABLET 1 tab daily at bedtime 2 SIMVASTATIN 20 MG ORAL TABLET 500970 SIMVASTATIN Inactive COUMADIN 6 MG ORAL TABLET 1 by mouth every other day 2 COUMADIN 6 MG ORAL TABLET 312573 WARFARIN SODIUM Inactive COUMADIN 5 MG ORAL TABLET 1 by mouth every other day 2 COUMADIN 5 MG ORAL TABLET 460839 WARFARIN SODIUM Inactive LISINOPRIL 20 MG ORAL TABLET 1 tab po at HS LISINOPRIL 20 MG ORAL TABLET 046785 LISINOPRIL Inactive LISINOPRIL-HYDROCHLOROTHIAZIDE 20-12.5 MG ORAL TABLET 1 tab by m outh daily LISINOPRIL-HYDROCHLOROTHIAZIDE 20-12.5 MG ORAL TABLET 856146 LISINOPRIL-HYDROCHLOROTHIAZIDE Inactive POLYTRIM 79780-5.1 UNIT/ML-% OPHTHALMIC SOLUTION 1 rui p in affected eye every 3 hours while awake x 7 days POLYTRIM 1000 0-0.1 UNIT/ML-% OPHTHALMIC SOLUTION 533090 POLYMYXIN B-TRIMETHOPRIM Inactive COUMADIN 4 MG ORAL TABLET 1 tablet daily COUMADIN 4 MG ORAL TABLET 808620 WARFARIN SODIUM Inactive CLONIDINE HCL 0.1 MG ORAL TABLET 1 po bid 7 days, then 1/2 t ab po bid 7 days CLONIDINE HCL 0.1 MG ORAL TABLET 225505 CLONIDIN E HCL Inactive ALLOPURINOL 300 MG ORAL TABLET Take 1 tablet by mouth daily 2012 ALLOPURINOL 300 MG ORAL TABLET 179119 ALLOPURINOL I nactive MECLIZINE HCL 25 MG ORAL TABLET 1 po tid 3 days, then 1/2 ta b tid 3 days MECLIZINE HCL 25 MG ORAL TABLET 848806 MECLIZINE HCL Inactive AMLODIPINE BESYLATE 5 MG ORAL TABLET 1 tablet by mouth daily 201 01/20/04 AMLODIPINE BESYLATE 5 MG ORAL TABLET 488806 AMLODIPINE BESYLATE Inactive KEFLEX 500 MG ORAL CAPSULE 1 po qid K EFLEX 500 MG ORAL CAPSULE 882513 CEPHALEXIN Inactive COLCRYS 0.6 MG ORAL TABLET 1 tab qid prn gout COLCRYS 0.6 MG ORAL TABLET 839451 COLCHICINE Inactive FAMOTIDINE 20 MG ORAL TABLET by mouth twice a day 2017 FAMOTIDINE 20 MG ORAL TABLET 367858 FAMOTIDINE Inactive GLIMEPIRIDE 2 MG ORAL TABLET 1 po BID GLIMEPIRIDE 2 MG ORAL TABLET 182623 GLIMEPIRIDE Inactive LOVENOX 100 MG/ML SUBCUTANEOUS SOLUTION One injection twice a da y LOVENOX 100 MG/ML SUBCUTANEOUS SOLUTION 323070 ENOXAPAR IN SODIUM Inactive Vital Signs Date [...] 4.3-6.0 Encounters Code Encounter Date Provider Facility CPT-25555 [id number] Vst-Est Level IV 10:52:00 DISTRIBUTION ACCOUNTING CLERK Stephy Urbina [facility] CPT-75155 Level 3 Est. Patient 18:25:53 CDT Mitch Ambrose Nona luis [facility] CPT-89178 Level 3 Est. Patient 19:43:34 CDT Mitch Arnol Nona luis [facility] CPT-20574 Level 4 Est. Patient 09:30:18 CDT Mitch Ambrose Nona janelle [facility] CPT-56626 Level 3 Est. Patient 15:10:14 CDT Joe kamara [facility] CPT-69354 Level 3 Est. Patient 15:03:46 CDT Joe kamara [facility] CPT-56047 Level 3 Est. Patient 14:21:06 CDT Mitch Arnol Castellano janelle [facility] CPT-17772 Level 3 Est. Patient 14:52:06 CDT Joe Jason courtangela [facility] CPT-45651 Level 3 Est. Patient 09:34:30 DISTRIBUTION ACCOUNTING CLERK Mitch luis [facility] CPT-77373 Level 3 Est. Patient 09:37:15 CDT Mitch luis [facility] CPT-83612 Level 3 Est. Patient 17:01:00 DISTRIBUTION ACCOUNTING CLERK Mitch luis [facility] CPT-24798 Level 3 Est. Patient 13:53:19 DISTRIBUTION ACCOUNTING CLERK Mitch luis [facility] CPT-27481 Level 3 Est. Patient 19:19:37 DISTRIBUTION ACCOUNTING CLERK Mitch luis [facility] CPT-65412 Level 3 Est. Patient 13:25:53 DISTRIBUTION ACCOUNTING CLERK Tavo toure MD [facility] CPT-29915 Level 3 Est. Patient 18:17:28 CDT Mitch luis [facility] CPT-84531 Level 3 Est. Patient 15:22:57 CDT Mitch luis [facility] CPT-44046 Level 3 Est. Patient 18:21:50 CDT Mitch luis [facility] CPT-55737 Level 3 Est. Patient 18:20:38 CDT Mitch luis [facility] CPT-71820 Level 3 Est. Patient 15:37:55 CDT Mitch luis [facility] CPT-00268 Level 2 Est. Patient 15:54:44 CDT Carmine benton MD [facility] CPT-74811 Level 3 Est. Patient 21:46:01 DISTRIBUTION ACCOUNTING CLERK Mitch luis [facility] CPT-43158 Level 3 Est. Patient 22:15:50 CDT Mitch luis [facility] CPT-55911 Level 3 Est. Patient 10:48:15 CDT Mitch luis [facility] CPT-07936 Level 3 Est. Patient 23:20:57 CDT Tavo toure MD [facility] CPT-41203 Level 3 Est. Patient 16:26:13 CDT Mitch Arnol luis [facility] Procedures Code Procedure Name Date Entry Date Standard Desc ription CPT-JTINJ Asp/Joint Injection 18:47:02 CDT CPT-16824 Venipuncture Draw Fee 09:26:17 CDT CPT-83085 PT/INR - LAB USE ONLY 13:32:49 DISTRIBUTION ACCOUNTING CLERK CPT-17093 Venipuncture Draw Fee 13:32:49 DISTRIBUTION ACCOUNTING CLERK CPT-28942 PT/INR - LAB USE ONLY 10:34:49 DISTRIBUTION ACCOUNTING CLERK CPT-76714 Venipuncture Draw Fee 10:34:48 DISTRIBUTION ACCOUNTING CLERK CPT-58639 PT/INR - LAB USE ONLY 09:22:03 DISTRIBUTION ACCOUNTING CLERK CPT-66470 Venipuncture Draw Fee 09:22:02 DISTRIBUTION ACCOUNTING CLERK CPT-52545 Hemoccult IFOBT - LAB USE ONLY 10:27:22 CDT CPT-09254 Venipuncture Draw Fee 08:27:08 CDT CPT-97590 Liver Profile - LAB USE ONLY 08:27:07 CDT 2 CPT-15218 Microalbumin - LAB USE ONLY 08:27:07 CDT 20 25/05/09 CPT-19157 PT/INR - LAB USE ONLY 08:27:07 CDT CPT-19933 HGBA1C - LAB USE ONLY 08:27:07 CDT CPT-84939 CBC - LAB USE ONLY 08:27:07 CDT CPT-27929 Venipuncture Draw Fee 11:09:14 CDT CPT-59516 Venipuncture Draw Fee 08:32:21 DISTRIBUTION ACCOUNTING CLERK CPT-32998 Venipuncture Draw Fee 09:38:56 DISTRIBUTION ACCOUNTING CLERK CPT-32819 No Charge Offi Visit 21:36:07 CDT 1 CPT-09231 Venipuncture Draw Fee 10:13:28 DISTRIBUTION ACCOUNTING CLERK CPT-37339 Venipuncture Draw Fee 08:31:11 CDT CPT-53870 Aspir/Inject Med Joint 18:17:28 CDT CPT-90707 Venipuncture Draw Fee 10:13:30 CDT CPT-27559 Venipuncture Draw Fee 08:31:43 DISTRIBUTION ACCOUNTING CLERK CPT-JTINJ Joint Injection 18:34:50 CDT CPT-87664 Knee 3V 12:25:09 CDT CPT-70842 Venipuncture Draw Fee 12:15:57 CDT CPT-060 Medical Surveillance Exam 21:31:43 CDT 2011 CPT-63361 Venipuncture Draw Fee 08:32:05 DISTRIBUTION ACCOUNTING CLERK CPT-OV Office Visit 18:19:06 CDT
--- OUTSIDE RECORDS SUMMARY | 2020-01-18 13:43 | XMS REPORT | Clinical Summary ---
Author Author Admin, Mitch Leon Organization [facility] [employer] Address Unknown Phone Unavailable Allergies, Adverse Reactions, [...] GROIN, LEFT ICD-682.2 Inactive Bruc e W Acrlitos DO SEROMA ICD-998.13 Inactive Mitch Urbina DO [...] Instructions Start Date Stop Date Generic Name [facility] Status Provider Patient Instruction GLIMEPIRIDE 4 MG ORAL TABLET 1 tablet by mouth twice daily f or diabetes GLIMEPIRIDE 29083925056 Active Mitch Urbina DO Active GLIMEPIRIDE 2 MG ORAL TABLET 1 po BID GLIMEPI RIDE 53550265265 No Longer Active Mitch Urbina DO Active AMLODIPINE BESYLATE 5 MG ORAL TABLET 1 tablet by mouth daily AMLODIPINE BESYLATE 23874318551 Active Mitch Urbina DO Active PROVIGIL 200 MG ORAL TABLET 1/2 tab po q day MODA FINIL 26334210615 Active Renee Oconnor SAW SHARPENER Active FAMOTIDINE 20 MG ORAL TABLET by mouth twice a day 2017 FAMOTIDINE 77304568189 No Longer Active Mitch Urbina DO Active COLCRYS 0.6 MG ORAL TABLET 1 tab qid prn gout C OLCHICINE 65496761310 No Longer Active Mitch Urbina DO Active KEFLEX 500 MG ORAL CAPSULE 1 po qid CEPHALEXI N 28715388051 No Longer Active Mitch Urbina DO Active LOSARTAN POTASSIUM 100 MG ORAL TABLET 1 pill by mouth daily, for blood pressure LOSARTAN POTASSIUM 84372575760 Active Ana Ocampo Active AMLODIPINE BESYLATE 5 MG ORAL TABLET 1 tablet by mouth daily 201 01/20/04 AMLODIPINE BESYLATE 31895361356 No Longer Active Joe fulton APRN Active MITIGARE 0.6 MG ORAL CAPSULE 2 capsules at onset of go ut pain, then take one capsule at 1 hour if symptoms persist. COLCHICINE 59 124799397 Active Mitch Urbina DO Active COUMADIN 1 MG ORAL TABLET 2 tabs orally daily with the 5mg tab to equal 7mg daily WARFARIN SODIUM 99997101865 Active Mitch Urbina DO Active INVOKANA 100 MG ORAL TABLET 1 tablet orally daily CANAGLIFLOZIN 64930654663 Active Ana Ocampo Active MINOXIDIL 2.5 MG ORAL TABLET 1 tablet daily for high blood press ure MINOXIDIL 84840860794 Active Renee Quirogamonserrat DE [place] ROSA Active MECLIZINE HCL 25 MG ORAL TABLET 1 po tid 3 days, then 1/2 ta b tid 3 days MECLIZINE HCL 41170231701 No Longer Active Corey SEGURA Active ALLOPURINOL 300 MG ORAL TABLET Take 1 tablet by mouth daily 2012 ALLOPURINOL 36096351256 No Longer Active Corey SEGURA Active CLONIDINE HCL 0.1 MG ORAL TABLET 1 po bid 7 days, then 1/2 t ab po bid 7 days CLONIDINE HCL 88115201708 No Longer Active Corey SEGURA Active COUMADIN 5 MG ORAL TABLET 1 tab PO daily WARFAR IN SODIUM 03557822340 Active Mitch Urbina DO Active COUMADIN 4 MG ORAL TABLET 1 tablet daily WARFAR IN SODIUM 58956513575 No Longer Active Corey SEGURA Active POLYTRIM 64760-5.1 UNIT/ML-% OPHTHALMIC SOLUTION 1 rui p in affected eye every 3 hours while awake x 7 days POLYMYXIN B-TRIMETHOP RIM 94193986304 No Longer Active Corey SEGURA Active LOSARTAN POTASSIUM-HCTZ 100-12.5 MG ORAL TABLET 1 by m outh daily for high blood pressure LOSARTAN POTASSIUM-HCTZ 23638044118 No Longer A ctive Mitch Urbina DO Active LISINOPRIL-HYDROCHLOROTHIAZIDE 20-12.5 MG ORAL TABLET 1 tab by m outh daily LISINOPRIL-HYDROCHLOROTHIAZIDE 50987149341 No Longer Active Mitch Urbina DO Active LISINOPRIL 20 MG ORAL TABLET 1 tab po at HS LIS INOPRIL 47656697196 No Longer Active Mitch Urbina DO Active COUMADIN 5 MG ORAL TABLET 1 by mouth every other day 2 WARFARIN SODIUM 09299519633 No Longer Active Mitch Urbina DO Active COUMADIN 6 MG ORAL TABLET 1 by mouth every other day 2 WARFARIN SODIUM 08104960587 No Longer Active Mitch Urbina DO Active SIMVASTATIN 40 MG ORAL TABLET 1 tab daily at bedtime SIMVASTATIN 21813842123 Active Mitch Urbina DO Active SIMVASTATIN 20 MG ORAL TABLET 1 tab daily at bedtime 2 SIMVASTATIN 23153734854 No Longer Active Mitch Urbina DO Active LOVENOX 100 MG/ML SUBCUTANEOUS SOLUTION One injection twice a da y ENOXAPARIN SODIUM 44804344707 No Longer Active Carmine Yusuf MD Active JANUVIA 50 MG ORAL TABLET Take one by mouth daily SITAGLIPTIN PHOSPHATE 70853625360 Active Renee Elvin DE LA ROSA Active JANUVIA 100 MG ORAL TABLET 1/2 by mouth every day 2011 SITAGLIPTIN PHOSPHATE 05308549657 No Longer Active Bijal Segal RN Acti ve METFORMIN HCL 500 MG ORAL TABLET 2 by mouth twice daily METFORMIN HCL 75077006402 No Longer Active Renee Oconnor LPN Active COLCRYS 0.6 MG ORAL TABLET 1 po q 6 hours prn gout pain COLCHICINE 52110458074 No Longer Active Camila Reese Active LISINOPRIL 5 MG ORAL TABLET 1 by mouth every day 11/17 LISINOPRIL 00380006255 No Longer Active Nguyen Perez Active KLOR-CON 20 MEQ ORAL PACKET Take one by mouth daily 20 09/10/08 POTASSIUM CHLORIDE 27467320366 No Longer Active Nguyen Perez Active FUROSEMIDE 40 MG ORAL TABLET 1 by mouth daily F UROSEMIDE 79644195147 No Longer Active Nguyen Perez Active PROVIGIL 100 MG ORAL TABLET Take one by mouth daily 20 08/20/04 MODAFINIL 90059828529 No Longer Active Mitch Urbina DO Active BACTRIM DS 800-160 MG ORAL TABLET 1 tab by mouth twice daily 201 10/19/09 TRIMETHOPRIM-SULFAMETHOXAZOLE 29604423918 No Longer Active Elian Hays MD Active ADULT ASPIRIN LOW STRENGTH 81 MG ORAL TABLET DISINTEGR ATING 1 by mouth every daily ASPIRIN 48995791417 Active Mitch Ambrose Carlitos DO Ac tive METOPROLOL TARTRATE 50 MG ORAL TABLET 1 by mouth twice daily METOPROLOL TARTRATE 27301929107 Active Ana Ocampo Activ e BACTRIM DS 800-160 MG ORAL TABLET 1 tab by mouth twice daily 201 10/19/09 BACTRIM DS 800-160 MG ORAL TABLET 223851 TRIMETHOPRIM-SULFAMETHOXAZOLE Inactive PROVIGIL 100 MG ORAL TABLET Take one by mouth daily 08/20/04 PROVIGIL 100 MG ORAL TABLET 231534 MODAFINIL Inactive FUROSEMIDE 40 MG ORAL TABLET 1 by mouth daily FUROSEMIDE 40 MG ORAL TABLET 583413 FUROSEMIDE Inactive KLOR-CON 20 MEQ ORAL PACKET Take one by mouth daily 09/10/08 KLOR- CON 20 MEQ ORAL PACKET 2890389 POTASSIUM CHLORIDE Inactive LISINOPRIL 5 MG ORAL TABLET 1 by mouth every day 11/17 LISINOPRIL 5 MG ORAL TABLET 870104 LISINOPRIL Inactive COLCRYS 0.6 MG ORAL TABLET 1 po q 6 hours prn gout pain COLCRYS 0.6 MG ORAL TABLET 418083 COLCHICINE Inactive JANUVIA 100 MG ORAL TABLET 1/2 by mouth every day 2011 JANUVIA 100 MG ORAL TABLET SITAGLIPTIN PHOSPHATE Inactive SIMVASTATIN 20 MG ORAL TABLET 1 tab daily at bedtime 2 SIMVASTATIN 20 MG ORAL TABLET 502841 SIMVASTATIN Inactive COUMADIN 6 MG ORAL TABLET 1 by mouth every other day 2 COUMADIN 6 MG ORAL TABLET 567787 WARFARIN SODIUM Inactive COUMADIN 5 MG ORAL TABLET 1 by mouth every other day 2 COUMADIN 5 MG ORAL TABLET 300005 WARFARIN SODIUM Inactive LISINOPRIL 20 MG ORAL TABLET 1 tab po at HS LISINOPRIL 20 MG ORAL TABLET 378440 LISINOPRIL Inactive LISINOPRIL-HYDROCHLOROTHIAZIDE 20-12.5 MG ORAL TABLET 1 tab by m outh daily LISINOPRIL-HYDROCHLOROTHIAZIDE 20-12.5 MG ORAL TABLET 814064 LISINOPRIL-HYDROCHLOROTHIAZIDE Inactive POLYTRIM 82370-6.1 UNIT/ML-% OPHTHALMIC SOLUTION 1 rui p in affected eye every 3 hours while awake x 7 days POLYTRIM 1000 0-0.1 UNIT/ML-% OPHTHALMIC SOLUTION 026552 POLYMYXIN B-TRIMETHOPRIM Inactive COUMADIN 4 MG ORAL TABLET 1 tablet daily COUMADIN 4 MG ORAL TABLET 659432 WARFARIN SODIUM Inactive CLONIDINE HCL 0.1 MG ORAL TABLET 1 po bid 7 days, then 1/2 t ab po bid 7 days CLONIDINE HCL 0.1 MG ORAL TABLET 068873 CLONIDIN E HCL Inactive ALLOPURINOL 300 MG ORAL TABLET Take 1 tablet by mouth daily 2012 ALLOPURINOL 300 MG ORAL TABLET 583048 ALLOPURINOL I nactive MECLIZINE HCL 25 MG ORAL TABLET 1 po tid 3 days, then 1/2 ta b tid 3 days MECLIZINE HCL 25 MG ORAL TABLET 675036 MECLIZINE HCL Inactive AMLODIPINE BESYLATE 5 MG ORAL TABLET 1 tablet by mouth daily 201 01/20/04 AMLODIPINE BESYLATE 5 MG ORAL TABLET 253856 AMLODIPINE BESYLATE Inactive KEFLEX 500 MG ORAL CAPSULE 1 po qid K EFLEX 500 MG ORAL CAPSULE 202065 CEPHALEXIN Inactive COLCRYS 0.6 MG ORAL TABLET 1 tab qid prn gout COLCRYS 0.6 MG ORAL TABLET 444672 COLCHICINE Inactive FAMOTIDINE 20 MG ORAL TABLET by mouth twice a day 2017 FAMOTIDINE 20 MG ORAL TABLET 438143 FAMOTIDINE Inactive GLIMEPIRIDE 2 MG ORAL TABLET 1 po BID GLIMEPIRIDE 2 MG ORAL TABLET 731405 GLIMEPIRIDE Inactive LOVENOX 100 MG/ML SUBCUTANEOUS SOLUTION One injection twice a da y LOVENOX 100 MG/ML SUBCUTANEOUS SOLUTION 875012 ENOXAPAR IN SODIUM Inactive Vital Signs Date [...] 4.3-6.0 Encounters Code Encounter Date Provider Facility CPT-24151 [id number] Vst-Est Level IV 10:52:00 GRAPHIC ART SALES REPRESENTATIVE Stephy Urbina [facility] CPT-83535 Level 3 Est. Patient 18:25:53 CDT Mitch Ambrose Nona luis [facility] CPT-51903 Level 3 Est. Patient 19:43:34 CDT Mitch Arnol Nona luis [facility] CPT-76762 Level 4 Est. Patient 09:30:18 CDT Mitch Ambrose Nona janelle [facility] CPT-86562 Level 3 Est. Patient 15:10:14 CDT Joe kamara [facility] CPT-70219 Level 3 Est. Patient 15:03:46 CDT Joe kamara [facility] CPT-41530 Level 3 Est. Patient 14:21:06 CDT Mitch Arnol Castellano janelle [facility] CPT-81869 Level 3 Est. Patient 14:52:06 CDT Joe Jason courtangela [facility] CPT-98483 Level 3 Est. Patient 09:34:30 GRAPHIC ART SALES REPRESENTATIVE Mitch luis [facility] CPT-26365 Level 3 Est. Patient 09:37:15 CDT Mitch luis [facility] CPT-54629 Level 3 Est. Patient 17:01:00 GRAPHIC ART SALES REPRESENTATIVE Mitch luis [facility] CPT-94988 Level 3 Est. Patient 13:53:19 GRAPHIC ART SALES REPRESENTATIVE Mitch luis [facility] CPT-89593 Level 3 Est. Patient 19:19:37 GRAPHIC ART SALES REPRESENTATIVE Mitch luis [facility] CPT-79991 Level 3 Est. Patient 13:25:53 GRAPHIC ART SALES REPRESENTATIVE Tavo toure MD [facility] CPT-06526 Level 3 Est. Patient 18:17:28 CDT Mitch luis [facility] CPT-55685 Level 3 Est. Patient 15:22:57 CDT Mitch luis [facility] CPT-32195 Level 3 Est. Patient 18:21:50 CDT Mitch luis [facility] CPT-25217 Level 3 Est. Patient 18:20:38 CDT Mitch luis [facility] CPT-35597 Level 3 Est. Patient 15:37:55 CDT Mitch luis [facility] CPT-79811 Level 2 Est. Patient 15:54:44 CDT Cramine benton MD [facility] CPT-72295 Level 3 Est. Patient 21:46:01 GRAPHIC ART SALES REPRESENTATIVE Mitch luis [facility] CPT-08103 Level 3 Est. Patient 22:15:50 CDT Mitch luis [facility] CPT-51031 Level 3 Est. Patient 10:48:15 CDT Mitch luis [facility] CPT-35259 Level 3 Est. Patient 23:20:57 CDT Tavo toure MD [facility] CPT-43569 Level 3 Est. Patient 16:26:13 CDT Mitch Arnol luis [facility] Procedures Code Procedure Name Date Entry Date Standard Desc ription CPT-JTINJ Asp/Joint Injection 18:47:02 CDT CPT-21419 Venipuncture Draw Fee 09:26:17 CDT CPT-53468 PT/INR - LAB USE ONLY 13:32:49 [employer]IC [employer] SALES REPRESENTATIVE CPT-31920 Venipuncture Draw Fee 13:32:49 [employer]IC [employer] SALES REPRESENTATIVE CPT-76488 PT/INR - LAB USE ONLY 10:34:49 GRAPHIC ART SALES REPRESENTATIVE CPT-38060 Venipuncture Draw Fee 10:34:48 GR[employer]IC [employer] SALES REPRESENTATIVE CPT-46207 PT/INR - LAB USE ONLY 09:22:03 GRAPHIC ART SALES REPRESENTATIVE CPT-97457 Venipuncture Draw Fee 09:22:02 GR[employer]IC [employer] SALES REPRESENTATIVE CPT-52192 Hemoccult IFOBT - LAB USE ONLY 10:27:22 CDT CPT-97568 Venipuncture Draw Fee 08:27:08 CDT CPT-99723 Liver Profile - LAB USE ONLY 08:27:07 CDT 2 CPT-48293 Microalbumin - LAB USE ONLY 08:27:07 CDT 20 25/05/09 CPT-07467 PT/INR - LAB USE ONLY 08:27:07 CDT CPT-65447 HGBA1C - LAB USE ONLY 08:27:07 CDT CPT-69292 CBC - LAB USE ONLY 08:27:07 CDT CPT-82994 Venipuncture Draw Fee 11:09:14 CDT CPT-32932 Venipuncture Draw Fee 08:32:21 [employer]IC [employer] SALES REPRESENTATIVE CPT-59835 Venipuncture Draw Fee 09:38:56 GR[employer] SALES REPRESENTATIVE CPT-94186 No Charge Offi Visit 21:36:07 CDT 1 CPT-18538 Venipuncture Draw Fee 10:13:28 GR[employer] SALES REPRESENTATIVE CPT-48932 Venipuncture Draw Fee 08:31:11 CDT CPT-50651 Aspir/Inject Med Joint 18:17:28 CDT CPT-07650 Venipuncture Draw Fee 10:13:30 CDT CPT-77098 Venipuncture Draw Fee 08:31:43 GR[employer]IC ART SALES REPRESENTATIVE CPT-JTINJ Joint Injection 18:34:50 CDT CPT-13523 Knee 3V 12:25:09 CDT CPT-46865 Venipuncture Draw Fee 12:15:57 CDT CPT-060 Medical Surveillance Exam 21:31:43 CDT 2011 CPT-73733 Venipuncture Draw Fee 08:32:05 GRAPHIC ART SALES REPRESENTATIVE CPT-OV Office Visit 18:19:06 CDT
--- OUTSIDE RECORDS SUMMARY | 2020-01-18 13:43 | XMS REPORT | Clinical Summary ---
Author Author Admin, Mitch Leon Organization [facility] [employer] Address Unknown Phone Unavailable Allergies, Adverse Reactions, [...] Degenerative joint disease, knee, left 715.96 Active Mithc Urbina DO Osteoarthrosis, unspecified whether generalized or [...] Instructions Start Date Stop Date Generic Name [facility] Status Provider Patient Instruction GLIMEPIRIDE 4 MG ORAL TABLET 1 tablet by mouth twice daily f or diabetes GLIMEPIRIDE 65079023798 Active Mitch Urbina DO Active GLIMEPIRIDE 2 MG ORAL TABLET 1 po BID GLIMEPI RIDE 65327766562 No Longer Active Mitch Urbina DO Active AMLODIPINE BESYLATE 5 MG ORAL TABLET 1 tablet by mouth daily AMLODIPINE BESYLATE 44359351369 Active Mitch Urbina DO Active PROVIGIL 200 MG ORAL TABLET 1/2 tab po q day MODA FINIL 52581536717 Active Renee Oconnor SQL SERVER DEVELOPER Active FAMOTIDINE 20 MG ORAL TABLET by mouth twice a day 2017 FAMOTIDINE 36698486590 No Longer Active Mitch Urbina DO Active COLCRYS 0.6 MG ORAL TABLET 1 tab qid prn gout C OLCHICINE 88687941888 No Longer Active Mitch Urbina DO Active KEFLEX 500 MG ORAL CAPSULE 1 po qid CEPHALEXI N 84954755496 No Longer Active Mitch Urbina DO Active LOSARTAN POTASSIUM 100 MG ORAL TABLET 1 pill by mouth daily, for blood pressure LOSARTAN POTASSIUM 23579293104 Active Ana Ocampo Active AMLODIPINE BESYLATE 5 MG ORAL TABLET 1 tablet by mouth daily 201 01/20/04 AMLODIPINE BESYLATE 40502179195 No Longer Active Joe fulton APRN Active MITIGARE 0.6 MG ORAL CAPSULE 2 capsules at onset of go ut pain, then take one capsule at 1 hour if symptoms persist. COLCHICINE 59 409497742 Active Mitch Urbina DO Active COUMADIN 1 MG ORAL TABLET 2 tabs orally daily with the 5mg tab to equal 7mg daily WARFARIN SODIUM 42336570006 Active Mitch Urbina DO Active INVOKANA 100 MG ORAL TABLET 1 tablet orally daily CANAGLIFLOZIN 08916197375 Active Ana Ocampo Active MINOXIDIL 2.5 MG ORAL TABLET 1 tablet daily for high blood press ure MINOXIDIL 52675628906 Active Renee Quirogamonserrat DE LA ROSA Active MECLIZINE HCL 25 MG ORAL TABLET 1 po tid 3 days, then 1/2 ta b tid 3 days MECLIZINE HCL 28979093217 No Longer Active Corey SEGURA Active ALLOPURINOL 300 MG ORAL TABLET Take 1 tablet by mouth daily 2012 ALLOPURINOL 68729285756 No Longer Active Corey SEGURA Active CLONIDINE HCL 0.1 MG ORAL TABLET 1 po bid 7 days, then 1/2 t ab po bid 7 days CLONIDINE HCL 41632333510 No Longer Active Corey SEGURA Active COUMADIN 5 MG ORAL TABLET 1 tab PO daily WARFAR IN SODIUM 67160128885 Active Mitch Urbina DO Active COUMADIN 4 MG ORAL TABLET 1 tablet daily WARFAR IN SODIUM 15316416716 No Longer Active Corey SEGURA Active POLYTRIM 11884-1.1 UNIT/ML-% OPHTHALMIC SOLUTION 1 rui p in affected eye every 3 hours while awake x 7 days POLYMYXIN B-TRIMETHOP RIM 58687657927 No Longer Active Corey SEGURA Active LOSARTAN POTASSIUM-HCTZ 100-12.5 MG ORAL TABLET 1 by m outh daily for high blood pressure LOSARTAN POTASSIUM-HCTZ 92165190866 No Longer A ctive Mitch Urbina DO Active LISINOPRIL-HYDROCHLOROTHIAZIDE 20-12.5 MG ORAL TABLET 1 tab by m outh daily LISINOPRIL-HYDROCHLOROTHIAZIDE 59629733171 No Longer Active Mitch Urbina DO Active LISINOPRIL 20 MG ORAL TABLET 1 tab po at HS LIS INOPRIL 89416054643 No Longer Active Mitch Urbina DO Active COUMADIN 5 MG ORAL TABLET 1 by mouth every other day 2 WARFARIN SODIUM 48680937627 No Longer Active Mitch Urbina DO Active COUMADIN 6 MG ORAL TABLET 1 by mouth every other day 2 WARFARIN SODIUM 50788192190 No Longer Active Mitch Urbina DO Active SIMVASTATIN 40 MG ORAL TABLET 1 tab daily at bedtime SIMVASTATIN 47169714061 Active Mitch Urbina DO Active SIMVASTATIN 20 MG ORAL TABLET 1 tab daily at bedtime 2 SIMVASTATIN 64687524532 No Longer Active Mitch Urbina DO Active LOVENOX 100 MG/ML SUBCUTANEOUS SOLUTION One injection twice a da y ENOXAPARIN SODIUM 39936419693 No Longer Active Carmine Yusuf MD Active JANUVIA 50 MG ORAL TABLET Take one by mouth daily SITAGLIPTIN PHOSPHATE 70932441572 Active Renee Elvin DE LA ROSA Active JANUVIA 100 MG ORAL TABLET 1/2 by mouth every day 2011 SITAGLIPTIN PHOSPHATE 52148382581 No Longer Active Bijal Segal RN Acti ve METFORMIN HCL 500 MG ORAL TABLET 2 by mouth twice daily METFORMIN HCL 58534085157 No Longer Active Renee Oconnor LPN Active COLCRYS 0.6 MG ORAL TABLET 1 po q 6 hours prn gout pain COLCHICINE 87350045916 No Longer Active Camila Reese Active LISINOPRIL 5 MG ORAL TABLET 1 by mouth every day 11/17 LISINOPRIL 93161832189 No Longer Active Nguyen Perez Active KLOR-CON 20 MEQ ORAL PACKET Take one by mouth daily 20 09/10/08 POTASSIUM CHLORIDE 35169857328 No Longer Active Nguyen Perez Active FUROSEMIDE 40 MG ORAL TABLET 1 by mouth daily F UROSEMIDE 00894875331 No Longer Active Nguyen Perez Active PROVIGIL 100 MG ORAL TABLET Take one by mouth daily 20 08/20/04 MODAFINIL 75435899021 No Longer Active Mitch Urbina DO Active BACTRIM DS 800-160 MG ORAL TABLET 1 tab by mouth twice daily 201 10/19/09 TRIMETHOPRIM-SULFAMETHOXAZOLE 42196515201 No Longer Active Elian Hays MD Active ADULT ASPIRIN LOW STRENGTH 81 MG ORAL TABLET DISINTEGR ATING 1 by mouth every daily ASPIRIN 49792525847 Active Mitch Ambrose Carlitos DO Ac tive METOPROLOL TARTRATE 50 MG ORAL TABLET 1 by mouth twice daily METOPROLOL TARTRATE 83451020716 Active Ana Ocampo Activ e BACTRIM DS 800-160 MG ORAL TABLET 1 tab by mouth twice daily 201 10/19/09 BACTRIM DS 800-160 MG ORAL TABLET 183131 TRIMETHOPRIM-SULFAMETHOXAZOLE Inactive PROVIGIL 100 MG ORAL TABLET Take one by mouth daily 08/20/04 PROVIGIL 100 MG ORAL TABLET 748285 MODAFINIL Inactive FUROSEMIDE 40 MG ORAL TABLET 1 by mouth daily FUROSEMIDE 40 MG ORAL TABLET 724695 FUROSEMIDE Inactive KLOR-CON 20 MEQ ORAL PACKET Take one by mouth daily 09/10/08 KLOR- CON 20 MEQ ORAL PACKET 1738851 POTASSIUM CHLORIDE Inactive LISINOPRIL 5 MG ORAL TABLET 1 by mouth every day 11/17 LISINOPRIL 5 MG ORAL TABLET 520374 LISINOPRIL Inactive COLCRYS 0.6 MG ORAL TABLET 1 po q 6 hours prn gout pain COLCRYS 0.6 MG ORAL TABLET 341351 COLCHICINE Inactive JANUVIA 100 MG ORAL TABLET 1/2 by mouth every day 2011 JANUVIA 100 MG ORAL TABLET SITAGLIPTIN PHOSPHATE Inactive SIMVASTATIN 20 MG ORAL TABLET 1 tab daily at bedtime 2 SIMVASTATIN 20 MG ORAL TABLET 536068 SIMVASTATIN Inactive COUMADIN 6 MG ORAL TABLET 1 by mouth every other day 2 COUMADIN 6 MG ORAL TABLET 320180 WARFARIN SODIUM Inactive COUMADIN 5 MG ORAL TABLET 1 by mouth every other day 2 COUMADIN 5 MG ORAL TABLET 471914 WARFARIN SODIUM Inactive LISINOPRIL 20 MG ORAL TABLET 1 tab po at HS LISINOPRIL 20 MG ORAL TABLET 217678 LISINOPRIL Inactive LISINOPRIL-HYDROCHLOROTHIAZIDE 20-12.5 MG ORAL TABLET 1 tab by m outh daily LISINOPRIL-HYDROCHLOROTHIAZIDE 20-12.5 MG ORAL TABLET 640930 LISINOPRIL-HYDROCHLOROTHIAZIDE Inactive POLYTRIM 52771-7.1 UNIT/ML-% OPHTHALMIC SOLUTION 1 rui p in affected eye every 3 hours while awake x 7 days POLYTRIM 1000 0-0.1 UNIT/ML-% OPHTHALMIC SOLUTION 018388 POLYMYXIN B-TRIMETHOPRIM Inactive COUMADIN 4 MG ORAL TABLET 1 tablet daily COUMADIN 4 MG ORAL TABLET 816168 WARFARIN SODIUM Inactive CLONIDINE HCL 0.1 MG ORAL TABLET 1 po bid 7 days, then 1/2 t ab po bid 7 days CLONIDINE HCL 0.1 MG ORAL TABLET 800154 CLONIDIN E HCL Inactive ALLOPURINOL 300 MG ORAL TABLET Take 1 tablet by mouth daily 2012 ALLOPURINOL 300 MG ORAL TABLET 069642 ALLOPURINOL I nactive MECLIZINE HCL 25 MG ORAL TABLET 1 po tid 3 days, then 1/2 ta b tid 3 days MECLIZINE HCL 25 MG ORAL TABLET 352070 MECLIZINE HCL Inactive AMLODIPINE BESYLATE 5 MG ORAL TABLET 1 tablet by mouth daily 201 01/20/04 AMLODIPINE BESYLATE 5 MG ORAL TABLET 963730 AMLODIPINE BESYLATE Inactive KEFLEX 500 MG ORAL CAPSULE 1 po qid K EFLEX 500 MG ORAL CAPSULE 470783 CEPHALEXIN Inactive COLCRYS 0.6 MG ORAL TABLET 1 tab qid prn gout COLCRYS 0.6 MG ORAL TABLET 099209 COLCHICINE Inactive FAMOTIDINE 20 MG ORAL TABLET by mouth twice a day 2017 FAMOTIDINE 20 MG ORAL TABLET 403014 FAMOTIDINE Inactive GLIMEPIRIDE 2 MG ORAL TABLET 1 po BID GLIMEPIRIDE 2 MG ORAL TABLET 126899 GLIMEPIRIDE Inactive LOVENOX 100 MG/ML SUBCUTANEOUS SOLUTION One injection twice a da y LOVENOX 100 MG/ML SUBCUTANEOUS SOLUTION 609589 ENOXAPAR IN SODIUM Inactive Vital Signs Date [...] 4.3-6.0 Encounters Code Encounter Date Provider Facility CPT-55920 [id number] Vst-Est Level IV 10:52:00 SERVICE WORKER HELPER Stephy Urbina [facility] CPT-65094 Level 3 Est. Patient 18:25:53 CDT Mitch Ambrose Nona luis [facility] CPT-05627 Level 3 Est. Patient 19:43:34 CDT Mitch Arnol Nona luis [facility] CPT-90588 Level 4 Est. Patient 09:30:18 CDT Mitch Ambrose Nona janelle [facility] CPT-09989 Level 3 Est. Patient 15:10:14 CDT Joe kamara [facility] CPT-07350 Level 3 Est. Patient 15:03:46 CDT Joe kamara [facility] CPT-34513 Level 3 Est. Patient 14:21:06 CDT Mitch Arnol Castellano janelle [facility] CPT-63308 Level 3 Est. Patient 14:52:06 CDT Joe Jason courtangela [facility] CPT-47138 Level 3 Est. Patient 09:34:30 SERVICE WORKER HELPER Mitch luis [facility] CPT-81153 Level 3 Est. Patient 09:37:15 CDT Mitch luis [facility] CPT-06386 Level 3 Est. Patient 17:01:00 SERVICE WORKER HELPER Mitch luis [facility] CPT-61608 Level 3 Est. Patient 13:53:19 SERVICE WORKER HELPER Mitch luis [facility] CPT-89274 Level 3 Est. Patient 19:19:37 SERVICE WORKER HELPER Mitch luis [facility] CPT-61470 Level 3 Est. Patient 13:25:53 SERVICE WORKER HELPER Tavo toure MD [facility] CPT-62048 Level 3 Est. Patient 18:17:28 CDT Mitch luis [facility] CPT-14392 Level 3 Est. Patient 15:22:57 CDT Mitch luis [facility] CPT-28749 Level 3 Est. Patient 18:21:50 CDT Mitch luis [facility] CPT-84492 Level 3 Est. Patient 18:20:38 CDT Mitch luis [facility] CPT-85537 Level 3 Est. Patient 15:37:55 CDT Mitch luis [facility] CPT-27237 Level 2 Est. Patient 15:54:44 CDT Carmine benton MD [facility] CPT-91325 Level 3 Est. Patient 21:46:01 SERVICE WORKER HELPER Mitch luis [facility] CPT-65782 Level 3 Est. Patient 22:15:50 CDT Mitch luis [facility] CPT-74585 Level 3 Est. Patient 10:48:15 CDT Mitch luis [facility] CPT-83501 Level 3 Est. Patient 23:20:57 CDT Tavo toure MD [facility] CPT-71829 Level 3 Est. Patient 16:26:13 CDT Mitch Arnol luis [facility] Procedures Code Procedure Name Date Entry Date Standard Desc ription CPT-JTINJ Asp/Joint Injection 18:47:02 CDT CPT-88394 Venipuncture Draw Fee 09:26:17 CDT CPT-49367 PT/INR - LAB USE ONLY 13:32:49 SERVICE WORKER HELPER CPT-66711 Venipuncture Draw Fee 13:32:49 SERVICE WORKER HELPER CPT-05646 PT/INR - LAB USE ONLY 10:34:49 SERVICE WORKER HELPER CPT-66288 Venipuncture Draw Fee 10:34:48 SERVICE WORKER HELPER CPT-52481 PT/INR - LAB USE ONLY 09:22:03 SERVICE WORKER HELPER CPT-92508 Venipuncture Draw Fee 09:22:02 SERVICE WORKER HELPER CPT-93314 Hemoccult IFOBT - LAB USE ONLY 10:27:22 CDT CPT-45600 Venipuncture Draw Fee 08:27:08 CDT CPT-66703 Liver Profile - LAB USE ONLY 08:27:07 CDT 2 CPT-27332 Microalbumin - LAB USE ONLY 08:27:07 CDT 20 25/05/09 CPT-34243 PT/INR - LAB USE ONLY 08:27:07 CDT CPT-95037 HGBA1C - LAB USE ONLY 08:27:07 CDT CPT-17097 CBC - LAB USE ONLY 08:27:07 CDT CPT-80503 Venipuncture Draw Fee 11:09:14 CDT CPT-83738 Venipuncture Draw Fee 08:32:21 SERVICE WORKER HELPER CPT-57110 Venipuncture Draw Fee 09:38:56 SERVICE WORKER HELPER CPT-51201 No Charge Offi Visit 21:36:07 CDT 1 CPT-21578 Venipuncture Draw Fee 10:13:28 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
--- OUTSIDE RECORDS SUMMARY | 2020-01-18 13:44 | XMS REPORT | Clinical Summary ---
Author Author Admin, Mitch Leon Organization [facility] [employer] [employer] Address Unknown Phone Unavailable Allergies, Adverse Reactions, [...] Coronary atherosclerosis of unspecified type of vessel, [place] or graft EDEMA 782.3 Resolved Mitch Urbina [...] Start Date Stop Date Generic Name [facility] Status Provider Patient Instruction GLIMEPIRIDE 4 MG ORAL TABLET 1 tablet by mouth twice daily f or diabetes GLIMEPIRIDE 90040760156 Active Mitch Urbina DO Active GLIMEPIRIDE 2 MG ORAL TABLET 1 po BID GLIMEPI RIDE 01847726475 No Longer Active Mitch Urbina DO Active AMLODIPINE BESYLATE 5 MG ORAL TABLET 1 tablet by mouth daily AMLODIPINE BESYLATE 63235545972 Active Mitch Urbina DO Active PROVIGIL 200 MG ORAL TABLET 1/2 tab po q day MODA FINIL 28564127796 Active Renee Oconnor LPN Active FAMOTIDINE 20 MG ORAL TABLET by mouth twice a day 2017 FAMOTIDINE 54786554323 No Longer Active Mitch Urbina DO Active COLCRYS 0.6 MG ORAL TABLET 1 tab qid prn gout C OLCHICINE 75334458357 No Longer Active Mitch Urbina DO Active KEFLEX 500 MG ORAL CAPSULE 1 po qid CEPHALEXI N 84540666252 No Longer Active Mitch Urbina DO Active LOSARTAN POTASSIUM 100 MG ORAL TABLET 1 pill by mouth daily, for blood pressure LOSARTAN POTASSIUM 60174429457 Active Ana Ocampo Active AMLODIPINE BESYLATE 5 MG ORAL TABLET 1 tablet by mouth daily 201 01/20/04 AMLODIPINE BESYLATE 38752499955 No Longer Active Joe fulton APRN Active MITIGARE 0.6 MG ORAL CAPSULE 2 capsules at onset of go ut pain, then take one capsule at 1 hour if symptoms persist. COLCHICINE 59 519002705 Active Mitch Urbina DO Active COUMADIN 1 MG ORAL TABLET 2 tabs orally daily with the 5mg tab to equal 7mg daily WARFARIN SODIUM 75703990168 Active Mitch Arnol Urbina DO Active INVOKANA 100 MG ORAL TABLET 1 tablet orally daily CANAGLIFLOZIN 57295398172 Active Ana Ocampo Active MINOXIDIL 2.5 MG ORAL TABLET 1 tablet daily for high blood press ure MINOXIDIL 64721127409 Active Renee Quirogamonserrat DE [place] ROSA Active MECLIZINE HCL 25 MG ORAL TABLET 1 po tid 3 days, then 1/2 ta b tid 3 days MECLIZINE HCL 39935409215 No Longer Active Corey SEGURA Active ALLOPURINOL 300 MG ORAL TABLET Take 1 tablet by mouth daily 2012 ALLOPURINOL 06373635428 No Longer Active Corey SEGURA Active CLONIDINE HCL 0.1 MG ORAL TABLET 1 po bid 7 days, then 1/2 t ab po bid 7 days CLONIDINE HCL 79746648048 No Longer Active Corey SEGURA Active COUMADIN 5 MG ORAL TABLET 1 tab PO daily WARFAR IN SODIUM 88271944845 Active Mitch Urbina DO Active COUMADIN 4 MG ORAL TABLET 1 tablet daily WARFAR IN SODIUM 09150945032 No Longer Active Corey SEGURA Active POLYTRIM 07948-4.1 UNIT/ML-% OPHTHALMIC SOLUTION 1 rui p in affected eye every 3 hours while awake x 7 days POLYMYXIN B-TRIMETHOP RIM 40769976039 No Longer Active Corey SEGURA Active LOSARTAN POTASSIUM-HCTZ 100-12.5 MG ORAL TABLET 1 by m outh daily for high blood pressure LOSARTAN POTASSIUM-HCTZ 22111858856 No Longer A ctive Mitch Urbina DO Active LISINOPRIL-HYDROCHLOROTHIAZIDE 20-12.5 MG ORAL TABLET 1 tab by m outh daily LISINOPRIL-HYDROCHLOROTHIAZIDE 33646339816 No Longer Active Mitch Urbina DO Active LISINOPRIL 20 MG ORAL TABLET 1 tab po at HS LIS INOPRIL 74524306264 No Longer Active Mitch Urbina DO Active COUMADIN 5 MG ORAL TABLET 1 by mouth every other day 2 WARFARIN SODIUM 29098115789 No Longer Active Mitch Urbina DO Active COUMADIN 6 MG ORAL TABLET 1 by mouth every other day 2 WARFARIN SODIUM 27862996662 No Longer Active Mitch Urbina DO Active SIMVASTATIN 40 MG ORAL TABLET 1 tab daily at bedtime SIMVASTATIN 12361413041 Active Mitch Urbina DO Active SIMVASTATIN 20 MG ORAL TABLET 1 tab daily at bedtime 2 SIMVASTATIN 36724972190 No Longer Active Mitch Urbina DO Active LOVENOX 100 MG/ML SUBCUTANEOUS SOLUTION One injection twice a da y ENOXAPARIN SODIUM 54420160304 No Longer Active Carmine Yusuf MD Active JANUVIA 50 MG ORAL TABLET Take one by mouth daily SITAGLIPTIN PHOSPHATE 16796950223 Active Renee Elvin DE LA ROSA Active JANUVIA 100 MG ORAL TABLET 1/2 by mouth every day 2011 SITAGLIPTIN PHOSPHATE 98381434007 No Longer Active Bijal Segal RN Acti ve METFORMIN HCL 500 MG ORAL TABLET 2 by mouth twice daily METFORMIN HCL 31430165652 No Longer Active Renee Oconnor LPN Active COLCRYS 0.6 MG ORAL TABLET 1 po q 6 hours prn gout pain COLCHICINE 36917772266 No Longer Active Camila Reese Active LISINOPRIL 5 MG ORAL TABLET 1 by mouth every day 11/17 LISINOPRIL 75341139287 No Longer Active Nguyen Perez Active KLOR-CON 20 MEQ ORAL PACKET Take one by mouth daily 20 09/10/08 POTASSIUM CHLORIDE 20134490814 No Longer Active Nguyen Perez Active FUROSEMIDE 40 MG ORAL TABLET 1 by mouth daily F UROSEMIDE 68511938678 No Longer Active Nguyen Perez Active PROVIGIL 100 MG ORAL TABLET Take one by mouth daily 08/20/04 MODAFINIL 60395522236 No Longer Active Mitch Urbina DO Active BACTRIM DS 800-160 MG ORAL TABLET 1 tab by mouth twice daily 201 10/19/09 TRIMETHOPRIM-SULFAMETHOXAZOLE 31807512943 No Longer Active Elian Hays MD Active ADULT ASPIRIN LOW STRENGTH 81 MG ORAL TABLET DISINTEGR ATING 1 by mouth every daily ASPIRIN 81309807349 Active Mitch Arnol Urbina DO Ac tive METOPROLOL TARTRATE 50 MG ORAL TABLET 1 by mouth twice daily METOPROLOL TARTRATE 37278481339 Active Ana Ocampo Activ e BACTRIM DS 800-160 MG ORAL TABLET 1 tab by mouth twice daily 201 10/19/09 BACTRIM DS 800-160 MG ORAL TABLET 133782 TRIMETHOPRIM-SULFAMETHOXAZOLE Inactive PROVIGIL 100 MG ORAL TABLET Take one by mouth daily 08/20/04 PROVIGIL 100 MG ORAL TABLET 008214 MODAFINIL Inactive FUROSEMIDE 40 MG ORAL TABLET 1 by mouth daily FUROSEMIDE 40 MG ORAL TABLET 621291 FUROSEMIDE Inactive KLOR-CON 20 MEQ ORAL PACKET Take one by mouth daily 09/10/08 KLOR- CON 20 MEQ ORAL PACKET 7806861 POTASSIUM CHLORIDE Inactive LISINOPRIL 5 MG ORAL TABLET 1 by mouth every day 11/17 LISINOPRIL 5 MG ORAL TABLET 649546 LISINOPRIL Inactive COLCRYS 0.6 MG ORAL TABLET 1 po q 6 hours prn gout pain COLCRYS 0.6 MG ORAL TABLET 348793 COLCHICINE Inactive JANUVIA 100 MG ORAL TABLET 1/2 by mouth every day 2011 JANUVIA 100 MG ORAL TABLET SITAGLIPTIN PHOSPHATE Inactive SIMVASTATIN 20 MG ORAL TABLET 1 tab daily at bedtime 2 SIMVASTATIN 20 MG ORAL TABLET 031544 SIMVASTATIN Inactive COUMADIN 6 MG ORAL TABLET 1 by mouth every other day 2 COUMADIN 6 MG ORAL TABLET 760537 WARFARIN SODIUM Inactive COUMADIN 5 MG ORAL TABLET 1 by mouth every other day 2 COUMADIN 5 MG ORAL TABLET 187218 WARFARIN SODIUM Inactive LISINOPRIL 20 MG ORAL TABLET 1 tab po at HS LISINOPRIL 20 MG ORAL TABLET 983500 LISINOPRIL Inactive LISINOPRIL-HYDROCHLOROTHIAZIDE 20-12.5 MG ORAL TABLET 1 tab by m outh daily LISINOPRIL-HYDROCHLOROTHIAZIDE 20-12.5 MG ORAL TABLET 964340 LISINOPRIL-HYDROCHLOROTHIAZIDE Inactive POLYTRIM 75721-9.1 UNIT/ML-% OPHTHALMIC SOLUTION 1 rui p in affected eye every 3 hours while awake x 7 days POLYTRIM 1000 0-0.1 UNIT/ML-% OPHTHALMIC SOLUTION 986232 POLYMYXIN B-TRIMETHOPRIM Inactive COUMADIN 4 MG ORAL TABLET 1 tablet daily COUMADIN 4 MG ORAL TABLET 001926 WARFARIN SODIUM Inactive CLONIDINE HCL 0.1 MG ORAL TABLET 1 po bid 7 days, then 1/2 t ab po bid 7 days CLONIDINE HCL 0.1 MG ORAL TABLET 414091 CLONIDIN E HCL Inactive ALLOPURINOL 300 MG ORAL TABLET Take 1 tablet by mouth daily 2012 ALLOPURINOL 300 MG ORAL TABLET 091695 ALLOPURINOL I nactive MECLIZINE HCL 25 MG ORAL TABLET 1 po tid 3 days, then 1/2 ta b tid 3 days MECLIZINE HCL 25 MG ORAL TABLET 212290 MECLIZINE HCL Inactive AMLODIPINE BESYLATE 5 MG ORAL TABLET 1 tablet by mouth daily 201 01/20/04 AMLODIPINE BESYLATE 5 MG ORAL TABLET 210510 AMLODIPINE BESYLATE Inactive KEFLEX 500 MG ORAL CAPSULE 1 po qid K EFLEX 500 MG ORAL CAPSULE 342971 CEPHALEXIN Inactive COLCRYS 0.6 MG ORAL TABLET 1 tab qid prn gout COLCRYS 0.6 MG ORAL TABLET 979274 COLCHICINE Inactive FAMOTIDINE 20 MG ORAL TABLET by mouth twice a day 2017 FAMOTIDINE 20 MG ORAL TABLET 986704 FAMOTIDINE Inactive GLIMEPIRIDE 2 MG ORAL TABLET 1 po BID GLIMEPIRIDE 2 MG ORAL TABLET 579746 GLIMEPIRIDE Inactive LOVENOX 100 MG/ML SUBCUTANEOUS SOLUTION One injection twice a da y LOVENOX 100 MG/ML SUBCUTANEOUS SOLUTION 490741 ENOXAPAR IN SODIUM Inactive Vital Signs Date [...] 4.3-6.0 Encounters Code Encounter Date Provider Facility CPT-94079 [id number] Vst-Est Level IV 10:52:00 SOCIAL SERVICES ASSISTANT Stephy Urbina [facility] CPT-04378 Level 3 Est. Patient 18:25:53 CDT Mitch luis [facility] CPT-61880 Level 3 Est. Patient 19:43:34 CDT Mitch luis [facility] CPT-30716 Level 4 Est. Patient 09:30:18 CDT Mitch luis [facility] CPT-43709 Level 3 Est. Patient 15:10:14 CDT Joe kamara [facility] CPT-07022 Level 3 Est. Patient 15:03:46 CDT Joe kamara [facility] CPT-21753 Level 3 Est. Patient 14:21:06 CDT Mitch luis [facility] CPT-27283 Level 3 Est. Patient 14:52:06 CDT Joe kamara [facility] CPT-55451 Level 3 Est. Patient 09:34:30 SOCIAL SERVICES ASSISTANT Mitch luis [facility] CPT-81007 Level 3 Est. Patient 09:37:15 CDT Mitch luis [facility] CPT-32691 Level 3 Est. Patient 17:01:00 SOCIAL SERVICES ASSISTANT Mitch l[facility] CPT-34178 Level 3 Est. Patient 13:53:19 SOCIAL SERVICES ASSISTANT Mitch luis [facility] CPT-56366 Level 3 Est. Patient 19:19:37 SOCIAL SERVICES ASSISTANT Mitch l[facility] CPT-47457 Level 3 Est. Patient 13:25:53 SOCIAL SERVICES ASSISTANT Tavo toure MD [facility] CPT-32451 Level 3 Est. Patient 18:17:28 CDT Mitch l[facility] CPT-79153 Level 3 Est. Patient 15:22:57 CDT Mitch luis [facility] CPT-11049 Level 3 Est. Patient 18:21:50 CDT Mitch luis [facility] CPT-43682 Level 3 Est. Patient 18:20:38 CDT Mitch luis [facility] CPT-19588 Level 3 Est. Patient 15:37:55 CDT Mitch l[facility] CPT-05985 Level 2 Est. Patient 15:54:44 CDT Carmine benton MD [facility] CPT-83600 Level 3 Est. Patient 21:46:01 SOCIAL SERVICES ASSISTANT Mitch [facility] CPT-76862 Level 3 Est. Patient 22:15:50 CDT Mitch [facility] CPT-91874 Level 3 Est. Patient 10:48:15 CDT [facility] CPT-42504 Level 3 Est. Patient 23:20:57 CDT Tavo toure MD [facility] CPT-86440 Level 3 Est. Patient 16:26:13 CDT [facility] Procedures Code Procedure Name Date Entry Date Standard Desc ription CPT-JTINJ Asp/Joint Injection 18:47:02 CDT CPT-08147 Venipuncture Draw Fee 09:26:17 CDT CPT-56352 PT/INR - LAB USE ONLY 13:32:49 SOCIAL SERVICES ASSISTANT CPT-01203 Venipuncture Draw Fee 13:32:49 SOCIAL SERVICES ASSISTANT CPT-31673 PT/INR - LAB USE ONLY 10:34:49 SOCIAL SERVICES ASSISTANT CPT-85518 Venipuncture Draw Fee 10:34:48 SOCIAL SERVICES ASSISTANT CPT-09782 PT/INR - LAB USE ONLY 09:22:03 SOCIAL SERVICES ASSISTANT CPT-19161 Venipuncture Draw Fee 09:22:02 SOCIAL SERVICES ASSISTANT CPT-66638 Hemoccult IFOBT - LAB USE ONLY 10:27:22 CDT CPT-83580 Venipuncture Draw Fee 08:27:08 CDT CPT-56164 Liver Profile - LAB USE ONLY 08:27:07 CDT 2 CPT-86249 Microalbumin - LAB USE ONLY 08:27:07 CDT 20 25/05/09 CPT-02322 PT/INR - LAB USE ONLY 08:27:07 CDT CPT-95332 HGBA1C - LAB USE ONLY 08:27:07 CDT CPT-38218 CBC - LAB USE ONLY 08:27:07 CDT CPT-06610 Venipuncture Draw Fee 11:09:14 CDT CPT-67100 Venipuncture Draw Fee 08:32:21 SOCIAL SERVICES ASSISTANT CPT-26842 Venipuncture Draw Fee 09:38:56 SOCIAL SERVICES ASSISTANT CPT-47405 No Charge Offi Visit 21:36:07 CDT 1 CPT-65228 Venipuncture Draw Fee 10:13:28 SOCIAL SERVICES ASSISTANT CPT-52547 Venipuncture Draw Fee 08:31:11 CDT CPT-55459 Aspir/Inject Med Joint 18:17:28 CDT CPT-65001 Venipuncture Draw Fee 10:13:30 CDT CPT-97773 Venipuncture Draw Fee 08:31:43 SOCIAL SERVICES ASSISTANT CPT-JTINJ Joint Injection 18:34:50 CDT CPT-80883 Knee 3V 12:25:09 CDT CPT-69594 Venipuncture Draw Fee 12:15:57 CDT CPT-060 Medical Surveillance Exam 21:31:43 CDT 2011 CPT-49373 Venipuncture Draw Fee 08:32:05 SOCIAL SERVICES ASSISTANT CPT-OV Office Visit 18:19:06 CDT
--- OUTSIDE RECORDS SUMMARY | 2020-01-18 13:44 | XMS REPORT | Clinical Summary ---
[...] Coronary atherosclerosis of unspecified type of vessel, [place] or graft EDEMA 782.3 Resolved Mitch Urbina [...] of anticoagulants Valve replacement V43.3 Active Mitch Urbian DO Heart valve replaced by other means [...] Sebaceous cyst, infected ICD-706.2 Inactive Mitch Arnol Cariltos DO Cellulitis ICD-682.9 Inactive Mitch Urbina DO 10/23 Medication List Medication Instructions Start Date Stop Date Generic Name [facility] Status Provider Patient Instruction GLIMEPIRIDE 4 MG ORAL TABLET 1 tablet by mouth twice daily f or diabetes GLIMEPIRIDE 76458753000 Active Mitch Urbina DO Active GLIMEPIRIDE 2 MG ORAL TABLET 1 po BID GLIMEPI RIDE 88963157634 No Longer Active Mitch Urbina DO Active AMLODIPINE BESYLATE 5 MG ORAL TABLET 1 tablet by mouth daily AMLODIPINE BESYLATE 41767816719 Active Mitch Urbina DO Active PROVIGIL 200 MG ORAL TABLET 1/2 tab po q day MODA FINIL 99671794605 Active Renee Oconnor PIECER UP Active FAMOTIDINE 20 MG ORAL TABLET by mouth twice a day 2017 FAMOTIDINE 46393160549 No Longer Active Mitch Urbina DO Active COLCRYS 0.6 MG ORAL TABLET 1 tab qid prn gout C OLCHICINE 05437276588 No Longer Active Mitch Urbina DO Active KEFLEX 500 MG ORAL CAPSULE 1 po qid CEPHALEXI N 76021439257 No Longer Active Mitch Urbina DO Active LOSARTAN POTASSIUM 100 MG ORAL TABLET 1 pill by mouth daily, for blood pressure LOSARTAN POTASSIUM 04773342229 Active Ana Ocampo Active AMLODIPINE BESYLATE 5 MG ORAL TABLET 1 tablet by mouth daily 201 01/20/04 AMLODIPINE BESYLATE 57435126552 No Longer Active Joe fulton APRN Active MITIGARE 0.6 MG ORAL CAPSULE 2 capsules at onset of go ut pain, then take one capsule at 1 hour if symptoms persist. COLCHICINE 59 957321680 Active Mitch Urbina DO Active COUMADIN 1 MG ORAL TABLET 2 tabs orally daily with the 5mg tab to equal 7mg daily WARFARIN SODIUM 78137857833 Active Mitch Urbina DO Active INVOKANA 100 MG ORAL TABLET 1 tablet orally daily CANAGLIFLOZIN 01327595346 Active Ana Ocampo Active MINOXIDIL 2.5 MG ORAL TABLET 1 tablet daily for high blood press ure MINOXIDIL 62941605290 Active Renee Quirogamnoserrat DE LA ROSA Active MECLIZINE HCL 25 MG ORAL TABLET 1 po tid 3 days, then 1/2 ta b tid 3 days MECLIZINE HCL 46360335224 No Longer Active Corey SEGURA Active ALLOPURINOL 300 MG ORAL TABLET Take 1 tablet by mouth daily 2012 ALLOPURINOL 46984421781 No Longer Active Corey SEGURA Active CLONIDINE HCL 0.1 MG ORAL TABLET 1 po bid 7 days, then 1/2 t ab po bid 7 days CLONIDINE HCL 88062509169 No Longer Active Corey SEGURA Active COUMADIN 5 MG ORAL TABLET 1 tab PO daily WARFAR IN SODIUM 24119908230 Active Mitch Urbina DO Active COUMADIN 4 MG ORAL TABLET 1 tablet daily WARFAR IN SODIUM 41126281877 No Longer Active Corey SEGURA Active POLYTRIM 99820-3.1 UNIT/ML-% OPHTHALMIC SOLUTION 1 rui p in affected eye every 3 hours while awake x 7 days POLYMYXIN B-TRIMETHOP RIM 82384406748 No Longer Active Corey SEGURA Active LOSARTAN POTASSIUM-HCTZ 100-12.5 MG ORAL TABLET 1 by m outh daily for high blood pressure LOSARTAN POTASSIUM-HCTZ 66923279713 No Longer A ctive Mitch Urbina DO Active LISINOPRIL-HYDROCHLOROTHIAZIDE 20-12.5 MG ORAL TABLET 1 tab by m outh daily LISINOPRIL-HYDROCHLOROTHIAZIDE 02959681556 No Longer Active Mitch Urbina DO Active LISINOPRIL 20 MG ORAL TABLET 1 tab po at HS LIS INOPRIL 99820606960 No Longer Active Mitch Urbina DO Active COUMADIN 5 MG ORAL TABLET 1 by mouth every other day 2 WARFARIN SODIUM 00571417116 No Longer Active Mitch Urbina DO Active COUMADIN 6 MG ORAL TABLET 1 by mouth every other day 2 WARFARIN SODIUM 71422092971 No Longer Active Mitch Urbina DO Active SIMVASTATIN 40 MG ORAL TABLET 1 tab daily at bedtime SIMVASTATIN 22469354246 Active Mitch Urbina DO Active SIMVASTATIN 20 MG ORAL TABLET 1 tab daily at bedtime 2 SIMVASTATIN 09136796186 No Longer Active Mitch Urbina DO Active LOVENOX 100 MG/ML SUBCUTANEOUS SOLUTION One injection twice a da y ENOXAPARIN SODIUM 92120985822 No Longer Active Carmine Yusuf MD Active JANUVIA 50 MG ORAL TABLET Take one by mouth daily SITAGLIPTIN PHOSPHATE 67354256406 Active Renee Elvin DE LA ROSA Active JANUVIA 100 MG ORAL TABLET 1/2 by mouth every day 2011 SITAGLIPTIN PHOSPHATE 77263795047 No Longer Active Bijal Segal RN Acti ve METFORMIN HCL 500 MG ORAL TABLET 2 by mouth twice daily METFORMIN HCL 06700150700 No Longer Active Renee Oconnor LPN Active COLCRYS 0.6 MG ORAL TABLET 1 po q 6 hours prn gout pain COLCHICINE 60281862085 No Longer Active Camila Reese Active LISINOPRIL 5 MG ORAL TABLET 1 by mouth every day 11/17 LISINOPRIL 02157838238 No Longer Active Nguyen Perez Active KLOR-CON 20 MEQ ORAL PACKET Take one by mouth daily 20 09/10/08 POTASSIUM CHLORIDE 96842278310 No Longer Active Nguyen Perez Active FUROSEMIDE 40 MG ORAL TABLET 1 by mouth daily F UROSEMIDE 46539356680 No Longer Active Nguyen Perez Active PROVIGIL 100 MG ORAL TABLET Take one by mouth daily 20 08/20/04 MODAFINIL 07843101893 No Longer Active Mitch Urbina DO Active BACTRIM DS 800-160 MG ORAL TABLET 1 tab by mouth twice daily 201 10/19/09 TRIMETHOPRIM-SULFAMETHOXAZOLE 81279756366 No Longer Active Elian Hays MD Active ADULT ASPIRIN LOW STRENGTH 81 MG ORAL TABLET DISINTEGR ATING 1 by mouth every daily ASPIRIN 59214202335 Active Mitch Ambrose Carlitos DO Ac tive METOPROLOL TARTRATE 50 MG ORAL TABLET 1 by mouth twice daily METOPROLOL TARTRATE 57576930952 Active Ana Ocampo Activ e BACTRIM DS 800-160 MG ORAL TABLET 1 tab by mouth twice daily 201 10/19/09 BACTRIM DS 800-160 MG ORAL TABLET 801572 TRIMETHOPRIM-SULFAMETHOXAZOLE Inactive PROVIGIL 100 MG ORAL TABLET Take one by mouth daily 08/20/04 PROVIGIL 100 MG ORAL TABLET 472920 MODAFINIL Inactive FUROSEMIDE 40 MG ORAL TABLET 1 by mouth daily FUROSEMIDE 40 MG ORAL TABLET 653370 FUROSEMIDE Inactive KLOR-CON 20 MEQ ORAL PACKET Take one by mouth daily 09/10/08 KLOR- CON 20 MEQ ORAL PACKET 3018176 POTASSIUM CHLORIDE Inactive LISINOPRIL 5 MG ORAL TABLET 1 by mouth every day 11/17 LISINOPRIL 5 MG ORAL TABLET 109835 LISINOPRIL Inactive COLCRYS 0.6 MG ORAL TABLET 1 po q 6 hours prn gout pain COLCRYS 0.6 MG ORAL TABLET 496302 COLCHICINE Inactive JANUVIA 100 MG ORAL TABLET 1/2 by mouth every day 2011 JANUVIA 100 MG ORAL TABLET SITAGLIPTIN PHOSPHATE Inactive SIMVASTATIN 20 MG ORAL TABLET 1 tab daily at bedtime 2 SIMVASTATIN 20 MG ORAL TABLET 911581 SIMVASTATIN Inactive COUMADIN 6 MG ORAL TABLET 1 by mouth every other day 2 COUMADIN 6 MG ORAL TABLET 418339 WARFARIN SODIUM Inactive COUMADIN 5 MG ORAL TABLET 1 by mouth every other day 2 COUMADIN 5 MG ORAL TABLET 107039 WARFARIN SODIUM Inactive LISINOPRIL 20 MG ORAL TABLET 1 tab po at HS LISINOPRIL 20 MG ORAL TABLET 010865 LISINOPRIL Inactive LISINOPRIL-HYDROCHLOROTHIAZIDE 20-12.5 MG ORAL TABLET 1 tab by m outh daily LISINOPRIL-HYDROCHLOROTHIAZIDE 20-12.5 MG ORAL TABLET 378289 LISINOPRIL-HYDROCHLOROTHIAZIDE Inactive POLYTRIM 34273-6.1 UNIT/ML-% OPHTHALMIC SOLUTION 1 rui p in affected eye every 3 hours while awake x 7 days POLYTRIM 1000 0-0.1 UNIT/ML-% OPHTHALMIC SOLUTION 685710 POLYMYXIN B-TRIMETHOPRIM Inactive COUMADIN 4 MG ORAL TABLET 1 tablet daily COUMADIN 4 MG ORAL TABLET 611753 WARFARIN SODIUM Inactive CLONIDINE HCL 0.1 MG ORAL TABLET 1 po bid 7 days, then 1/2 t ab po bid 7 days CLONIDINE HCL 0.1 MG ORAL TABLET 722362 CLONIDIN E HCL Inactive ALLOPURINOL 300 MG ORAL TABLET Take 1 tablet by mouth daily 2012 ALLOPURINOL 300 MG ORAL TABLET 896244 ALLOPURINOL I nactive MECLIZINE HCL 25 MG ORAL TABLET 1 po tid 3 days, then 1/2 ta b tid 3 days MECLIZINE HCL 25 MG ORAL TABLET 453556 MECLIZINE HCL Inactive AMLODIPINE BESYLATE 5 MG ORAL TABLET 1 tablet by mouth daily 201 01/20/04 AMLODIPINE BESYLATE 5 MG ORAL TABLET 012393 AMLODIPINE BESYLATE Inactive KEFLEX 500 MG ORAL CAPSULE 1 po qid K EFLEX 500 MG ORAL CAPSULE 418753 CEPHALEXIN Inactive COLCRYS 0.6 MG ORAL TABLET 1 tab qid prn gout COLCRYS 0.6 MG ORAL TABLET 081849 COLCHICINE Inactive FAMOTIDINE 20 MG ORAL TABLET by mouth twice a day 2017 FAMOTIDINE 20 MG ORAL TABLET 003994 FAMOTIDINE Inactive GLIMEPIRIDE 2 MG ORAL TABLET 1 po BID GLIMEPIRIDE 2 MG ORAL TABLET 235812 GLIMEPIRIDE Inactive LOVENOX 100 MG/ML SUBCUTANEOUS SOLUTION One injection twice a da y LOVENOX 100 MG/ML SUBCUTANEOUS SOLUTION 957091 ENOXAPAR IN SODIUM Inactive Vital Signs Date [...] 4.3-6.0 Encounters Code Encounter Date Provider Facility CPT-59187 [id number] Vst-Est Level IV 10:52:[address] TEAM MEMBER Stephy Urbina [facility] CPT-49963 Level 3 Est. Patient 18:25:53 CDT Mitch Ambrose Nona luis [facility] CPT-55941 Level 3 Est. Patient 19:43:34 CDT Mitch Arnol Nona luis [facility] CPT-30171 Level 4 Est. Patient 09:30:18 CDT Mitch Ambrose Nona janelle [facility] CPT-89100 Level 3 Est. Patient 15:10:14 CDT Joe kamara [facility] CPT-39761 Level 3 Est. Patient 15:03:46 CDT Joe kamara [facility] CPT-07055 Level 3 Est. Patient 14:21:06 CDT Mitch Arnol Castellano janelle [facility] CPT-86257 Level 3 Est. Patient 14:52:06 CDT Joe Jason courtangela [facility] CPT-40529 Level 3 Est. Patient 09:34:[address] TEAM MEMBER Mitch luis [facility] CPT-77380 Level 3 Est. Patient 09:37:15 CDT Mitch luis [facility] CPT-84011 Level 3 Est. Patient 17:01:[address] TEAM MEMBER Mitch luis [facility] CPT-56685 Level 3 Est. Patient 13:53:[address] TEAM MEMBER Mitch luis [facility] CPT-30921 Level 3 Est. Patient 19:19:[address] TEAM MEMBER Mitch luis [facility] CPT-08706 Level 3 Est. Patient 13:25:[address] TEAM MEMBER Tavo toure MD [facility] CPT-22215 Level 3 Est. Patient 18:17:28 CDT Mitch luis [facility] CPT-60286 Level 3 Est. Patient 15:22:57 CDT Mitch luis [facility] CPT-77643 Level 3 Est. Patient 18:21:50 CDT Mitch luis [facility] CPT-06169 Level 3 Est. Patient 18:20:38 CDT Mitch luis [facility] CPT-52905 Level 3 Est. Patient 15:37:55 CDT Mitch luis [facility] CPT-34989 Level 2 Est. Patient 15:54:44 CDT Carmine benton MD [facility] CPT-95118 Level 3 Est. Patient 21:46:[address] TEAM MEMBER Mitch luis [facility] CPT-05489 Level 3 Est. Patient 22:15:50 CDT Mitch luis [facility] CPT-18446 Level 3 Est. Patient 10:48:15 CDT Mitch luis [facility] CPT-67459 Level 3 Est. Patient 23:20:57 CDT Tavo toure MD [facility] CPT-07440 Level 3 Est. Patient 16:26:13 CDT Mitch Arnol luis [facility] Procedures Code Procedure Name Date Entry Date Standard Desc ription CPT-JTINJ Asp/Joint Injection 18:47:02 CDT CPT-52093 Venipuncture Draw Fee 09:26:17 CDT CPT-35936 PT/INR - LAB USE ONLY 13:32:[address] TEAM MEMBER CPT-11248 Venipuncture Draw Fee 13:32:[address] TEAM MEMBER CPT-63284 PT/INR - LAB USE ONLY 10:34:[address] TEAM MEMBER CPT-76174 Venipuncture Draw Fee 10:34:[address] TEAM MEMBER CPT-56739 PT/INR - LAB USE ONLY 09:22:[address] TEAM MEMBER CPT-88436 Venipuncture Draw Fee 09:22:[address] TEAM MEMBER CPT-02452 Hemoccult IFOBT - LAB USE ONLY 10:27:22 CDT CPT-24039 Venipuncture Draw Fee 08:27:08 CDT CPT-66362 Liver Profile - LAB USE ONLY 08:27:07 CDT 2 CPT-59190 Microalbumin - LAB USE ONLY 08:27:07 CDT 20 25/05/09 CPT-12949 PT/INR - LAB USE ONLY 08:27:07 CDT CPT-23154 HGBA1C - LAB USE ONLY 08:27:07 CDT CPT-99726 CBC - LAB USE ONLY 08:27:07 CDT CPT-40758 Venipuncture Draw Fee 11:09:14 CDT CPT-06249 Venipuncture Draw Fee 08:32:[address] TEAM MEMBER CPT-63055 Venipuncture Draw Fee 09:38:[address] TEAM MEMBER CPT-16310 No Charge Offi Visit 21:36:07 CDT 1 CPT-80174 Venipuncture Draw Fee 10:13:[address] TEAM MEMBER CPT-45815 Venipuncture Draw Fee 08:31:11 CDT CPT-46744 Aspir/Inject Med Joint 18:17:28 CDT CPT-84543 Venipuncture Draw Fee 10:13:30 CDT CPT-27683 Venipuncture Draw Fee 08:31:[address] TEAM MEMBER CPT-JTINJ Joint Injection 18:34:50 CDT CPT-52805 Knee 3V 12:25:09 CDT CPT-98490 Venipuncture Draw Fee 12:15:57 CDT CPT-060 Medical Surveillance Exam 21:31:43 CDT 2011 CPT-74949 Venipuncture Draw Fee 08:32:[address] TEAM MEMBER CPT-OV Office Visit 18:19:06 CDT
--- OUTSIDE RECORDS SUMMARY | 2020-01-18 13:44 | XMS REPORT | Clinical Summary ---
[...] mouth twice daily f or diabetes GLIMEPIRIDE 59730397460 Active Mitch Urbina DO Active GLIMEPIRIDE 2 MG ORAL TABLET 1 po BID GLIMEPI RIDE 43183050171 No Longer Active Mitch Urbina DO Active AMLODIPINE BESYLATE 5 MG ORAL TABLET 1 tablet by mouth daily AMLODIPINE BESYLATE 84398491195 Active Mitch Urbina DO Active PROVIGIL 200 MG ORAL TABLET 1/2 tab po q day MODA FINIL 44616212572 Active Renee Oconnor LPN Active FAMOTIDINE 20 MG ORAL TABLET by mouth twice a day 2017 FAMOTIDINE 90447307070 No Longer Active Mitch Urbina DO Active COLCRYS 0.6 MG ORAL TABLET 1 tab qid prn gout C OLCHICINE 30278248757 No Longer Active Mitch Urbina DO Active KEFLEX 500 MG ORAL CAPSULE 1 po qid CEPHALEXI N 62378531915 No Longer Active Mithc Urbina DO Active LOSARTAN POTASSIUM 100 MG ORAL TABLET 1 pill by mouth daily, for blood pressure LOSARTAN POTASSIUM 90449791604 Active Ana Ocampo Active AMLODIPINE BESYLATE 5 MG ORAL TABLET 1 tablet by mouth daily 201 01/20/04 AMLODIPINE BESYLATE 64596086091 No Longer Active Joe fulton APRN Active MITIGARE 0.6 MG ORAL CAPSULE 2 capsules at onset of go ut pain, then take one capsule at 1 hour if symptoms persist. COLCHICINE 59 179550771 Active Mitch Urbina DO Active COUMADIN 1 MG ORAL TABLET 2 tabs orally daily with the 5mg tab to equal 7mg daily WARFARIN SODIUM 61759765380 Active Mitch Arnol Urbina DO Active INVOKANA 100 MG ORAL TABLET 1 tablet orally daily CANAGLIFLOZIN 41483138521 Active Ana Ocampo Active MINOXIDIL 2.5 MG ORAL TABLET 1 tablet daily for high blood press ure MINOXIDIL 32808754996 Active Renee Quirogamonserrat DE LA ROSA Active MECLIZINE HCL 25 MG ORAL TABLET 1 po tid 3 days, then 1/2 ta b tid 3 days MECLIZINE HCL 28655221118 No Longer Active Corey SEGURA Active ALLOPURINOL 300 MG ORAL TABLET Take 1 tablet by mouth daily 2012 ALLOPURINOL 41802046443 No Longer Active Corey SEGURA Active CLONIDINE HCL 0.1 MG ORAL TABLET 1 po bid 7 days, then 1/2 t ab po bid 7 days CLONIDINE HCL 27021700667 No Longer Active Corey SEGURA Active COUMADIN 5 MG ORAL TABLET 1 tab PO daily WARFAR IN SODIUM 70426560472 Active Mitch Urbina DO Active COUMADIN 4 MG ORAL TABLET 1 tablet daily WARFAR IN SODIUM 12114846428 No Longer Active Corey SEGURA Active POLYTRIM 10632-7.1 UNIT/ML-% OPHTHALMIC SOLUTION 1 rui p in affected eye every 3 hours while awake x 7 days POLYMYXIN B-TRIMETHOP RIM 31120198408 No Longer Active Corey SEGURA Active LOSARTAN POTASSIUM-HCTZ 100-12.5 MG ORAL TABLET 1 by m outh daily for high blood pressure LOSARTAN POTASSIUM-HCTZ 16729760085 No Longer A ctive Mitch Urbina DO Active LISINOPRIL-HYDROCHLOROTHIAZIDE 20-12.5 MG ORAL TABLET 1 tab by m outh daily LISINOPRIL-HYDROCHLOROTHIAZIDE 30806553079 No Longer Active Mitch Urbina DO Active LISINOPRIL 20 MG ORAL TABLET 1 tab po at HS LIS INOPRIL 19842229962 No Longer Active Mitch Urbina DO Active COUMADIN 5 MG ORAL TABLET 1 by mouth every other day 2 WARFARIN SODIUM 47408738675 No Longer Active Mitch Urbina DO Active COUMADIN 6 MG ORAL TABLET 1 by mouth every other day 2 WARFARIN SODIUM 12657209050 No Longer Active Mitch Urbina DO Active SIMVASTATIN 40 MG ORAL TABLET 1 tab daily at bedtime SIMVASTATIN 63662145605 Active Mitch Urbina DO Active SIMVASTATIN 20 MG ORAL TABLET 1 tab daily at bedtime 2 SIMVASTATIN 53035260469 No Longer Active Mitch rUbina DO Active LOVENOX 100 MG/ML SUBCUTANEOUS SOLUTION One injection twice a da y ENOXAPARIN SODIUM 73427456266 No Longer Active Carmine Yusuf MD Active JANUVIA 50 MG ORAL TABLET Take one by mouth daily SITAGLIPTIN PHOSPHATE 45344912833 Active Renee Elvin DE LA ROSA Active JANUVIA 100 MG ORAL TABLET 1/2 by mouth every day 2011 SITAGLIPTIN PHOSPHATE 13451598195 No Longer Active Bijal Segal RN Acti ve METFORMIN HCL 500 MG ORAL TABLET 2 by mouth twice daily METFORMIN HCL 75090102231 No Longer Active Renee Oconnor LPN Active COLCRYS 0.6 MG ORAL TABLET 1 po q 6 hours prn gout pain COLCHICINE 64411946151 No Longer Active Camila Reese Active LISINOPRIL 5 MG ORAL TABLET 1 by mouth every day 11/17 LISINOPRIL 30058615298 No Longer Active Nguyen Perez Active KLOR-CON 20 MEQ ORAL PACKET Take one by mouth daily 20 09/10/08 POTASSIUM CHLORIDE 65570810482 No Longer Active Nguyen Perez Active FUROSEMIDE 40 MG ORAL TABLET 1 by mouth daily F UROSEMIDE 08495754086 No Longer Active Nguyen Perez Active PROVIGIL 100 MG ORAL TABLET Take one by mouth daily 08/20/04 MODAFINIL 22897387228 No Longer Active Mitch Urbina DO Active BACTRIM DS 800-160 MG ORAL TABLET 1 tab by mouth twice daily 201 10/19/09 TRIMETHOPRIM-SULFAMETHOXAZOLE 10786446917 No Longer Active Elian Hays MD Active ADULT ASPIRIN LOW STRENGTH 81 MG ORAL TABLET DISINTEGR ATING 1 by mouth every daily ASPIRIN 05631691484 Active Mitch Arnol Urbina DO Ac tive METOPROLOL TARTRATE 50 MG ORAL TABLET 1 by mouth twice daily METOPROLOL TARTRATE 02061988667 Active Ana Ocampo Activ e BACTRIM DS 800-160 MG ORAL TABLET 1 tab by mouth twice daily 201 10/19/09 BACTRIM DS 800-160 MG ORAL TABLET 902960 TRIMETHOPRIM-SULFAMETHOXAZOLE Inactive PROVIGIL 100 MG ORAL TABLET Take one by mouth daily 08/20/04 PROVIGIL 100 MG ORAL TABLET 685812 MODAFINIL Inactive FUROSEMIDE 40 MG ORAL TABLET 1 by mouth daily FUROSEMIDE 40 MG ORAL TABLET 670614 FUROSEMIDE Inactive KLOR-CON 20 MEQ ORAL PACKET Take one by mouth daily 09/10/08 KLOR- CON 20 MEQ ORAL PACKET 2915067 POTASSIUM CHLORIDE Inactive LISINOPRIL 5 MG ORAL TABLET 1 by mouth every day 11/17 LISINOPRIL 5 MG ORAL TABLET 954331 LISINOPRIL Inactive COLCRYS 0.6 MG ORAL TABLET 1 po q 6 hours prn gout pain COLCRYS 0.6 MG ORAL TABLET 020541 COLCHICINE Inactive JANUVIA 100 MG ORAL TABLET 1/2 by mouth every day 2011 JANUVIA 100 MG ORAL TABLET SITAGLIPTIN PHOSPHATE Inactive SIMVASTATIN 20 MG ORAL TABLET 1 tab daily at bedtime 2 SIMVASTATIN 20 MG ORAL TABLET 935490 SIMVASTATIN Inactive COUMADIN 6 MG ORAL TABLET 1 by mouth every other day 2 COUMADIN 6 MG ORAL TABLET 365682 WARFARIN SODIUM Inactive COUMADIN 5 MG ORAL TABLET 1 by mouth every other day 2 COUMADIN 5 MG ORAL TABLET 884618 WARFARIN SODIUM Inactive LISINOPRIL 20 MG ORAL TABLET 1 tab po at HS LISINOPRIL 20 MG ORAL TABLET 323676 LISINOPRIL Inactive LISINOPRIL-HYDROCHLOROTHIAZIDE 20-12.5 MG ORAL TABLET 1 tab by m outh daily LISINOPRIL-HYDROCHLOROTHIAZIDE 20-12.5 MG ORAL TABLET 548615 LISINOPRIL-HYDROCHLOROTHIAZIDE Inactive POLYTRIM 25191-6.1 UNIT/ML-% OPHTHALMIC SOLUTION 1 rui p in affected eye every 3 hours while awake x 7 days POLYTRIM 1000 0-0.1 UNIT/ML-% OPHTHALMIC SOLUTION 288734 POLYMYXIN B-TRIMETHOPRIM Inactive COUMADIN 4 MG ORAL TABLET 1 tablet daily COUMADIN 4 MG ORAL TABLET 197506 WARFARIN SODIUM Inactive CLONIDINE HCL 0.1 MG ORAL TABLET 1 po bid 7 days, then 1/2 t ab po bid 7 days CLONIDINE HCL 0.1 MG ORAL TABLET 488394 CLONIDIN E HCL Inactive ALLOPURINOL 300 MG ORAL TABLET Take 1 tablet by mouth daily 2012 ALLOPURINOL 300 MG ORAL TABLET 905310 ALLOPURINOL I nactive MECLIZINE HCL 25 MG ORAL TABLET 1 po tid 3 days, then 1/2 ta b tid 3 days MECLIZINE HCL 25 MG ORAL TABLET 913309 MECLIZINE HCL Inactive AMLODIPINE BESYLATE 5 MG ORAL TABLET 1 tablet by mouth daily 201 01/20/04 AMLODIPINE BESYLATE 5 MG ORAL TABLET 945635 AMLODIPINE BESYLATE Inactive KEFLEX 500 MG ORAL CAPSULE 1 po qid K EFLEX 500 MG ORAL CAPSULE 295774 CEPHALEXIN Inactive COLCRYS 0.6 MG ORAL TABLET 1 tab qid prn gout COLCRYS 0.6 MG ORAL TABLET 300341 COLCHICINE Inactive FAMOTIDINE 20 MG ORAL TABLET by mouth twice a day 2017 FAMOTIDINE 20 MG ORAL TABLET 932538 FAMOTIDINE Inactive GLIMEPIRIDE 2 MG ORAL TABLET 1 po BID GLIMEPIRIDE 2 MG ORAL TABLET 702170 GLIMEPIRIDE Inactive LOVENOX 100 MG/ML SUBCUTANEOUS SOLUTION One injection twice a da y LOVENOX 100 MG/ML SUBCUTANEOUS SOLUTION 162545 ENOXAPAR IN SODIUM Inactive Vital Signs Date [...] 4.3-6.0 Encounters Code Encounter Date Provider Facility CPT-27463 [id number] Vst-Est Level IV 10:52:00 DIVER PUMPER Stephy Urbina [facility] CPT-76225 Level 3 Est. Patient 18:25:53 CDT Mitch luis [facility] CPT-77988 Level 3 Est. Patient 19:43:34 CDT Mitch luis [facility] CPT-01285 Level 4 Est. Patient 09:30:18 CDT Mitch luis [facility] CPT-15310 Level 3 Est. Patient 15:10:14 CDT Joe kamara [facility] CPT-92972 Level 3 Est. Patient 15:03:46 CDT Joe kamara [facility] CPT-01736 Level 3 Est. Patient 14:21:06 CDT Mitch luis [facility] CPT-79665 Level 3 Est. Patient 14:52:06 CDT Joe kamara [facility] CPT-80121 Level 3 Est. Patient 09:34:30 DIVER PUMPER Mitch luis [facility] CPT-42572 Level 3 Est. Patient 09:37:15 CDT Mitch luis [facility] CPT-71423 Level 3 Est. Patient 17:01:00 DIVER PUMPER Mitch luis [facility] CPT-13671 Level 3 Est. Patient 13:53:19 DIVER PUMPER Mitch luis [facility] CPT-25964 Level 3 Est. Patient 19:19:37 DIVER PUMPER Mitch luis [facility] CPT-89350 Level 3 Est. Patient 13:25:53 DIVER PUMPER Tavo toure MD [facility] CPT-84814 Level 3 Est. Patient 18:17:28 CDT Mitch luis [facility] CPT-07249 Level 3 Est. Patient 15:22:57 CDT Mitch luis [facility] CPT-47879 Level 3 Est. Patient 18:21:50 CDT Mitch luis [facility] CPT-57142 Level 3 Est. Patient 18:20:38 CDT Mitch luis [facility] CPT-60638 Level 3 Est. Patient 15:37:55 CDT Mitch luis [facility] CPT-25258 Level 2 Est. Patient 15:54:44 CDT Carmine benton MD [facility] CPT-98375 Level 3 Est. Patient 21:46:01 DIVER PUMPER Mitch luis [facility] CPT-55973 Level 3 Est. Patient 22:15:50 CDT Mitch luis [facility] CPT-36298 Level 3 Est. Patient 10:48:15 CDT Mitch luis [facility] CPT-35440 Level 3 Est. Patient 23:20:57 CDT Tavo toure MD [facility] CPT-01850 Level 3 Est. Patient 16:26:13 CDT Mitch luis [facility] Procedures Code Procedure Name Date Entry Date Standard Desc ription CPT-JTINJ Asp/Joint Injection 18:47:02 CDT CPT-59283 Venipuncture Draw Fee 09:26:17 CDT CPT-01094 PT/INR - LAB USE ONLY 13:32:49 DIVER PUMPER CPT-07083 Venipuncture Draw Fee 13:32:49 DIVER PUMPER CPT-16989 PT/INR - LAB USE ONLY 10:34:49 DIVER PUMPER CPT-17594 Venipuncture Draw Fee 10:34:48 DIVER PUMPER CPT-89301 PT/INR - LAB USE ONLY 09:22:03 DIVER PUMPER CPT-65091 Venipuncture Draw Fee 09:22:02 DIVER PUMPER CPT-48666 Hemoccult IFOBT - LAB USE ONLY 10:27:22 CDT CPT-27865 Venipuncture Draw Fee 08:27:08 CDT CPT-61572 Liver Profile - LAB USE ONLY 08:27:07 CDT 2 CPT-61381 Microalbumin - LAB USE ONLY 08:27:07 CDT 20 25/05/09 CPT-54550 PT/INR - LAB USE ONLY 08:27:07 CDT CPT-92177 HGBA1C - LAB USE ONLY 08:27:07 CDT CPT-15988 CBC - LAB USE ONLY 08:27:07 CDT CPT-26583 Venipuncture Draw Fee 11:09:14 CDT CPT-52980 Venipuncture Draw Fee 08:32:21 DIVER PUMPER CPT-67498 Venipuncture Draw Fee 09:38:56 DIVER PUMPER CPT-81525 No Charge Offi Visit 21:36:07 CDT 1 CPT-02247 Venipuncture Draw Fee 10:13:28 DIVER PUMPER CPT-08197 Venipuncture Draw Fee 08:31:11 CDT CPT-78617 Aspir/Inject Med Joint 18:17:28 CDT CPT-90811 Venipuncture Draw Fee 10:13:30 CDT CPT-96339 Venipuncture Draw Fee 08:31:43 DIVER PUMPER CPT-JTINJ Joint Injection 18:34:50 CDT CPT-34091 Knee 3V 12:25:09 CDT CPT-00703 Venipuncture Draw Fee 12:15:57 CDT CPT-060 Medical Surveillance Exam 21:31:43 CDT 2011 CPT-03816 Venipuncture Draw Fee 08:32:05 DIVER PUMPER CPT-OV Office Visit 18:19:06 CDT
--- OUTSIDE RECORDS SUMMARY | 2020-01-18 13:45 | XMS REPORT | Clinical Summary ---
Author Author Admin, Mitch Leon Organization [facility] Address Unknown Phone Unavailable Allergies, Adverse Reactions, [...] Start Date Stop Date Generic Name [facility] Status Provider Patient Instruction GLIMEPIRIDE 4 MG ORAL TABLET 1 tablet by mouth twice daily f or diabetes GLIMEPIRIDE 09352634435 Active Mitch Urbina DO Active GLIMEPIRIDE 2 MG ORAL TABLET 1 po BID GLIMEPI RIDE 13329968641 No Longer Active Mitch Urbina DO Active AMLODIPINE BESYLATE 5 MG ORAL TABLET 1 tablet by mouth daily AMLODIPINE BESYLATE 09748195357 Active Mitch Urbina DO Active PROVIGIL 200 MG ORAL TABLET 1/2 tab po q day MODA FINIL 54197166077 Active Renee Oconnor LPN Active FAMOTIDINE 20 MG ORAL TABLET by mouth twice a day 2017 FAMOTIDINE 01072872169 No Longer Active Mitch Urbina DO Active COLCRYS 0.6 MG ORAL TABLET 1 tab qid prn gout C OLCHICINE 50367508884 No Longer Active Mitch Urbina DO Active KEFLEX 500 MG ORAL CAPSULE 1 po qid CEPHALEXI N 08848757369 No Longer Active Mitch Urbina DO Active LOSARTAN POTASSIUM 100 MG ORAL TABLET 1 pill by mouth daily, for blood pressure LOSARTAN POTASSIUM 12367410922 Active Ana Ocampo Active AMLODIPINE BESYLATE 5 MG ORAL TABLET 1 tablet by mouth daily 201 01/20/04 AMLODIPINE BESYLATE 12324106351 No Longer Active Joe fulton APRN Active MITIGARE 0.6 MG ORAL CAPSULE 2 capsules at onset of go ut pain, then take one capsule at 1 hour if symptoms persist. COLCHICINE 59 745589474 Active Mitch Urbina DO Active COUMADIN 1 MG ORAL TABLET 2 tabs orally daily with the 5mg tab to equal 7mg daily WARFARIN SODIUM 02167412550 Active Mitch Arnol Urbina DO Active INVOKANA 100 MG ORAL TABLET 1 tablet orally daily CANAGLIFLOZIN 75533167632 Active Renee Josepheder DE [place] Active MINOXIDIL 2.5 MG ORAL TABLET 1 tablet daily for high blood press ure MINOXIDIL 17491912709 Active Renee Josepheder [place] Active MECLIZINE HCL 25 MG ORAL TABLET 1 po tid 3 days, then 1/2 ta b tid 3 days MECLIZINE HCL 94089791180 No Longer Active Corey SEGURA Active ALLOPURINOL 300 MG ORAL TABLET Take 1 tablet by mouth daily 2012 ALLOPURINOL 48927684837 No Longer Active Corey SEGURA Active CLONIDINE HCL 0.1 MG ORAL TABLET 1 po bid 7 days, then 1/2 t ab po bid 7 days CLONIDINE HCL 70779469297 No Longer Active Corey SEGURA Active COUMADIN 5 MG ORAL TABLET 1 tab PO daily WARFAR IN SODIUM 86447572100 Active Renee Oconnor LPN Active COUMADIN 4 MG ORAL TABLET 1 tablet daily WARFAR IN SODIUM 91458982411 No Longer Active Corey SEGURA Active POLYTRIM 33447-8.1 UNIT/ML-% OPHTHALMIC SOLUTION 1 rui p in affected eye every 3 hours while awake x 7 days POLYMYXIN B-TRIMETHOP RIM 10543557807 No Longer Active Corey SEGURA Active LOSARTAN POTASSIUM-HCTZ 100-12.5 MG ORAL TABLET 1 by m outh daily for high blood pressure LOSARTAN POTASSIUM-HCTZ 27318666224 No Longer A ctive Mitch Urbina DO Active LISINOPRIL-HYDROCHLOROTHIAZIDE 20-12.5 MG ORAL TABLET 1 tab by m outh daily LISINOPRIL-HYDROCHLOROTHIAZIDE 01837652023 No Longer Active Mitch Urbina DO Active LISINOPRIL 20 MG ORAL TABLET 1 tab po at HS LIS INOPRIL 57758542142 No Longer Active Mitch Urbina DO Active COUMADIN 5 MG ORAL TABLET 1 by mouth every other day 2 WARFARIN SODIUM 14700088355 No Longer Active Mitch Urbina DO Active COUMADIN 6 MG ORAL TABLET 1 by mouth every other day 2 WARFARIN SODIUM 82579665586 No Longer Active Mitch Urbina DO Active SIMVASTATIN 40 MG ORAL TABLET 1 tab daily at bedtime SIMVASTATIN 97682314144 Active Mitch Urbina DO Active SIMVASTATIN 20 MG ORAL TABLET 1 tab daily at bedtime 2 SIMVASTATIN 23339695552 No Longer Active Mitch Urbina DO Active LOVENOX 100 MG/ML SUBCUTANEOUS SOLUTION One injection twice a da y ENOXAPARIN SODIUM 38433138714 No Longer Active Carmine Yusuf MD Active JANUVIA 50 MG ORAL TABLET Take one by mouth daily SITAGLIPTIN PHOSPHATE 77941023260 Active Renee Elvin DE LA ROSA Active JANUVIA 100 MG ORAL TABLET 1/2 by mouth every day 2011 SITAGLIPTIN PHOSPHATE 94931900311 No Longer Active Bijal Segal RN Acti ve METFORMIN HCL 500 MG ORAL TABLET 2 by mouth twice daily METFORMIN HCL 65707567425 No Longer Active Renee Oconnor LPN Active COLCRYS 0.6 MG ORAL TABLET 1 po q 6 hours prn gout pain COLCHICINE 50117948307 No Longer Active Camila Reese Active LISINOPRIL 5 MG ORAL TABLET 1 by mouth every day 11/17 LISINOPRIL 24627704000 No Longer Active Nguyenmolly Perez Active KLOR-CON 20 MEQ ORAL PACKET Take one by mouth daily 09/10/08 POTASSIUM CHLORIDE 51177335488 No Longer Active Nguyenmolly Perez Active FUROSEMIDE 40 MG ORAL TABLET 1 by mouth daily F UROSEMIDE 63127862893 No Longer Active Nguyen Ana Active PROVIGIL 100 MG ORAL TABLET Take one by mouth daily 08/20/04 MODAFINIL 86487862107 No Longer Active Mitch Urbina DO Active BACTRIM DS 800-160 MG ORAL TABLET 1 tab by mouth twice daily 201 10/19/09 TRIMETHOPRIM-SULFAMETHOXAZOLE 26818879127 No Longer Active Elian Hays MD Active ADULT ASPIRIN LOW STRENGTH 81 MG ORAL TABLET DISINTEGR ATING 1 by mouth every daily ASPIRIN 90795298466 Active Mitch Urbina DO Ac tive METOPROLOL TARTRATE 50 MG ORAL TABLET 1 by mouth twice daily METOPROLOL TARTRATE 20992936204 Active Anabella Ocampo Activ e BACTRIM DS 800-160 MG ORAL TABLET 1 tab by mouth twice daily 201 10/19/09 BACTRIM DS 800-160 MG ORAL TABLET 332770 TRIMETHOPRIM-SULFAMETHOXAZOLE Inactive PROVIGIL 100 MG ORAL TABLET Take one by mouth daily 08/20/04 PROVIGIL 100 MG ORAL TABLET 909475 MODAFINIL Inactive FUROSEMIDE 40 MG ORAL TABLET 1 by mouth daily FUROSEMIDE 40 MG ORAL TABLET 327186 FUROSEMIDE Inactive KLOR-CON 20 MEQ ORAL PACKET Take one by mouth daily 09/10/08 KLOR- CON 20 MEQ ORAL PACKET 6286243 POTASSIUM CHLORIDE Inactive LISINOPRIL 5 MG ORAL TABLET 1 by mouth every day 11/17 LISINOPRIL 5 MG ORAL TABLET 054224 LISINOPRIL Inactive COLCRYS 0.6 MG ORAL TABLET 1 po q 6 hours prn gout pain COLCRYS 0.6 MG ORAL TABLET 014949 COLCHICINE Inactive JANUVIA 100 MG ORAL TABLET 1/2 by mouth every day 2011 JANUVIA 100 MG ORAL TABLET SITAGLIPTIN PHOSPHATE Inactive SIMVASTATIN 20 MG ORAL TABLET 1 tab daily at bedtime 2 SIMVASTATIN 20 MG ORAL TABLET 962510 SIMVASTATIN Inactive COUMADIN 6 MG ORAL TABLET 1 by mouth every other day 2 COUMADIN 6 MG ORAL TABLET 097997 WARFARIN SODIUM Inactive COUMADIN 5 MG ORAL TABLET 1 by mouth every other day 2 COUMADIN 5 MG ORAL TABLET 665229 WARFARIN SODIUM Inactive LISINOPRIL 20 MG ORAL TABLET 1 tab po at HS LISINOPRIL 20 MG ORAL TABLET 138825 LISINOPRIL Inactive LISINOPRIL-HYDROCHLOROTHIAZIDE 20-12.5 MG ORAL TABLET 1 tab by m outh daily LISINOPRIL-HYDROCHLOROTHIAZIDE 20-12.5 MG ORAL TABLET 564514 LISINOPRIL-HYDROCHLOROTHIAZIDE Inactive POLYTRIM 87090-5.1 UNIT/ML-% OPHTHALMIC SOLUTION 1 rui p in affected eye every 3 hours while awake x 7 days POLYTRIM 1000 0-0.1 UNIT/ML-% OPHTHALMIC SOLUTION 311576 POLYMYXIN B-TRIMETHOPRIM Inactive COUMADIN 4 MG ORAL TABLET 1 tablet daily COUMADIN 4 MG ORAL TABLET 321693 WARFARIN SODIUM Inactive CLONIDINE HCL 0.1 MG ORAL TABLET 1 po bid 7 days, then 1/2 t ab po bid 7 days CLONIDINE HCL 0.1 MG ORAL TABLET 856923 CLONIDIN E HCL Inactive ALLOPURINOL 300 MG ORAL TABLET Take 1 tablet by mouth daily 2012 ALLOPURINOL 300 MG ORAL TABLET 836902 ALLOPURINOL I nactive MECLIZINE HCL 25 MG ORAL TABLET 1 po tid 3 days, then 1/2 ta b tid 3 days MECLIZINE HCL 25 MG ORAL TABLET 498978 MECLIZINE HCL Inactive AMLODIPINE BESYLATE 5 MG ORAL TABLET 1 tablet by mouth daily 201 01/20/04 AMLODIPINE BESYLATE 5 MG ORAL TABLET 577639 AMLODIPINE BESYLATE Inactive KEFLEX 500 MG ORAL CAPSULE 1 po qid K EFLEX 500 MG ORAL CAPSULE 997203 CEPHALEXIN Inactive COLCRYS 0.6 MG ORAL TABLET 1 tab qid prn gout COLCRYS 0.6 MG ORAL TABLET 208481 COLCHICINE Inactive FAMOTIDINE 20 MG ORAL TABLET by mouth twice a day 2017 FAMOTIDINE 20 MG ORAL TABLET 540666 FAMOTIDINE Inactive GLIMEPIRIDE 2 MG ORAL TABLET 1 po BID GLIMEPIRIDE 2 MG ORAL TABLET 474430 GLIMEPIRIDE Inactive LOVENOX 100 MG/ML SUBCUTANEOUS SOLUTION One injection twice a da y LOVENOX 100 MG/ML SUBCUTANEOUS SOLUTION 744504 ENOXAPAR IN SODIUM Inactive Vital Signs Date [...] blood 6.4 10^3/MM^3 10*3/mm3 4.6-10.2 mean corpuscular hemoglobin, RBC [...] 4.3-6.0 Encounters Code Encounter Date Provider Facility CPT-63004 [id number] Vst-Est Level IV 10:52:00 [employer] Stephy Urbina [facility] CPT-17306 Level 3 Est. Patient 18:25:53 CDT Mitch luis [facility] CPT-61598 Level 3 Est. Patient 19:43:34 CDT Mitch luis [facility] CPT-64726 Level 4 Est. Patient 09:30:18 CDT Mitch luis [facility] CPT-85465 Level 3 Est. Patient 15:10:14 CDT Joe kamara [facility] CPT-52642 Level 3 Est. Patient 15:03:46 CDT Joe kamara [facility] CPT-53772 Level 3 Est. Patient 14:21:06 CDT Mitch luis [facility] CPT-79300 Level 3 Est. Patient 14:52:06 CDT Joe kamara [facility] CPT-56387 Level 3 Est. Patient 09:34:30 [employer] Mitch luis [facility] CPT-06213 Level 3 Est. Patient 09:37:15 CDT Mitch luis [facility] CPT-12913 Level 3 Est. Patient 17:01:00 [employer] Mitch luis [facility] CPT-66246 Level 3 Est. Patient 13:53:19 [employer] Mitch luis [facility] CPT-32805 Level 3 Est. Patient 19:19:37 [employer] Mitch luis [facility] CPT-01534 Level 3 Est. Patient 13:25:53 [employer] Tavo toure MD [facility] CPT-60137 Level 3 Est. Patient 18:17:28 CDT Mitch luis [facility] CPT-74844 Level 3 Est. Patient 15:22:57 CDT Mitch luis [facility] CPT-51989 Level 3 Est. Patient 18:21:50 CDT Mitch luis [facility] CPT-52110 Level 3 Est. Patient 18:20:38 CDT Mitch luis [facility] CPT-05119 Level 3 Est. Patient 15:37:55 CDT Mitch luis [facility] CPT-22343 Level 2 Est. Patient 15:54:44 CDT Carmine benton MD [facility] CPT-56594 Level 3 Est. Patient 21:46:01 [employer] Mitch luis [facility] CPT-85683 Level 3 Est. Patient 22:15:50 CDT Mitch luis [facility] CPT-54899 Level 3 Est. Patient 10:48:15 CDT Mitch luis [facility] CPT-40715 Level 3 Est. Patient 23:20:57 CDT Tavo toure MD [facility] CPT-26002 Level 3 Est. Patient 16:26:13 CDT Mitch Ambrose Nona luis [facility] Procedures Code Procedure Name Date Entry Date Standard Desc ription CPT-JTINJ Asp/Joint Injection 18:47:02 CDT CPT-50633 Venipuncture Draw Fee 09:26:17 CDT CPT-72943 PT/INR - LAB USE ONLY 13:32:49 [employer] CPT-46292 Venipuncture Draw Fee 13:32:49 [employer] CPT-91265 PT/INR - LAB USE ONLY 10:34:49 [employer] CPT-12404 Venipuncture Draw Fee 10:34:48 [employer] CPT-29228 PT/INR - LAB USE ONLY 09:22:03 [employer] CPT-93430 Venipuncture Draw Fee 09:22:02 [employer] CPT-74549 Hemoccult IFOBT - LAB USE ONLY 10:27:22 CDT CPT-70362 Venipuncture Draw Fee 08:27:08 CDT CPT-09588 Liver Profile - LAB USE ONLY 08:27:07 CDT 2 CPT-90943 Microalbumin - LAB USE ONLY 08:27:07 CDT 20 25/05/09 CPT-32852 PT/INR - LAB USE ONLY 08:27:07 CDT CPT-25498 HGBA1C - LAB USE ONLY 08:27:07 CDT CPT-19655 CBC - LAB USE ONLY 08:27:07 CDT CPT-82655 Venipuncture Draw Fee 11:09:14 CDT CPT-61015 Venipuncture Draw Fee 08:32:21 [employer] CPT-76026 Venipuncture Draw Fee 09:38:56 [employer] CPT-14978 No Charge Offi Visit 21:36:07 CDT 1 CPT-50578 Venipuncture Draw Fee 10:13:28 [employer] CPT-50245 Venipuncture Draw Fee 08:31:11 CDT CPT-50808 Aspir/Inject Med Joint 18:17:28 CDT CPT-02086 Venipuncture Draw Fee 10:13:30 CDT CPT-16071 Venipuncture Draw Fee 08:31:43 [employer] CPT-JTINJ Joint Injection 18:34:50 CDT CPT-08398 Knee 3V 12:25:09 CDT CPT-61416 Venipuncture Draw Fee 12:15:57 CDT CPT-060 Medical Surveillance Exam 21:31:43 CDT 2011 CPT-33479 Venipuncture Draw Fee 08:32:05 [employer] CPT-OV Office Visit 18:19:06 CDT
--- OUTSIDE RECORDS SUMMARY | 2020-01-18 13:45 | XMS REPORT | Clinical Summary ---
Author Author Admin, Mitch Leon Organization [facility] [email or web address] Address Unknown Phone Unavailable Allergies, Adverse Reactions, [...] Instructions Start Date Stop Date Generic Name [facility] Status Provider Patient Instruction GLIMEPIRIDE 4 MG ORAL TABLET 1 tablet by mouth twice daily f or diabetes GLIMEPIRIDE 43947029527 Active Mitch Urbina DO Active GLIMEPIRIDE 2 MG ORAL TABLET 1 po BID GLIMEPI RIDE 76631402977 No Longer Active Micth Urbina DO Active AMLODIPINE BESYLATE 5 MG ORAL TABLET 1 tablet by mouth daily AMLODIPINE BESYLATE 36728264076 Active Mitch Urbina DO Active PROVIGIL 200 MG ORAL TABLET 1/2 tab po q day MODA FINIL 04676719756 Active Renee Oconnor LPN Active FAMOTIDINE 20 MG ORAL TABLET by mouth twice a day 2017 FAMOTIDINE 82724847777 No Longer Active Mitch Urbina DO Active COLCRYS 0.6 MG ORAL TABLET 1 tab qid prn gout C OLCHICINE 28608519528 No Longer Active Mitch Urbina DO Active KEFLEX 500 MG ORAL CAPSULE 1 po qid CEPHALEXI N 66179640159 No Longer Active Mitch Urbina DO Active LOSARTAN POTASSIUM 100 MG ORAL TABLET 1 pill by mouth daily, for blood pressure LOSARTAN POTASSIUM 66223317568 Active Ana Ocampo Active AMLODIPINE BESYLATE 5 MG ORAL TABLET 1 tablet by mouth daily 201 01/20/04 AMLODIPINE BESYLATE 82073851611 No Longer Active Joe fulton APRN Active MITIGARE 0.6 MG ORAL CAPSULE 2 capsules at onset of go ut pain, then take one capsule at 1 hour if symptoms persist. COLCHICINE 59 902880793 Active Mitch Urbina DO Active COUMADIN 1 MG ORAL TABLET 2 tabs orally daily with the 5mg tab to equal 7mg daily WARFARIN SODIUM 15606002678 Active Mitch Arnol Urbina DO Active INVOKANA 100 MG ORAL TABLET 1 tablet orally daily CANAGLIFLOZIN 69935399096 Active Renee Josepheder DE LA ROSA Active MINOXIDIL 2.5 MG ORAL TABLET 1 tablet daily for high blood press ure MINOXIDIL 42787686541 Active Renee Josepheder DE [place] Active MECLIZINE HCL 25 MG ORAL TABLET 1 po tid 3 days, then 1/2 ta b tid 3 days MECLIZINE HCL 98673105552 No Longer Active Corey SEGURA Active ALLOPURINOL 300 MG ORAL TABLET Take 1 tablet by mouth daily 2012 ALLOPURINOL 20207610532 No Longer Active Corey SEGURA Active CLONIDINE HCL 0.1 MG ORAL TABLET 1 po bid 7 days, then 1/2 t ab po bid 7 days CLONIDINE HCL 74213641190 No Longer Active Corey SEGURA Active COUMADIN 5 MG ORAL TABLET 1 tab PO daily WARFAR IN SODIUM 07491976176 Active Renee Oconnor LPN Active COUMADIN 4 MG ORAL TABLET 1 tablet daily WARFAR IN SODIUM 40140092669 No Longer Active Corey SEGURA Active POLYTRIM 68460-6.1 UNIT/ML-% OPHTHALMIC SOLUTION 1 rui p in affected eye every 3 hours while awake x 7 days POLYMYXIN B-TRIMETHOP RIM 94541013906 No Longer Active Corey SEGURA Active LOSARTAN POTASSIUM-HCTZ 100-12.5 MG ORAL TABLET 1 by m outh daily for high blood pressure LOSARTAN POTASSIUM-HCTZ 60262370077 No Longer A ctive Mitch Urbina DO Active LISINOPRIL-HYDROCHLOROTHIAZIDE 20-12.5 MG ORAL TABLET 1 tab by m outh daily LISINOPRIL-HYDROCHLOROTHIAZIDE 59781991944 No Longer Active Mitch Urbina DO Active LISINOPRIL 20 MG ORAL TABLET 1 tab po at HS LIS INOPRIL 96472030586 No Longer Active Mitch Urbina DO Active COUMADIN 5 MG ORAL TABLET 1 by mouth every other day 2 WARFARIN SODIUM 82314185197 No Longer Active Mitch Urbina DO Active COUMADIN 6 MG ORAL TABLET 1 by mouth every other day 2 WARFARIN SODIUM 84067635608 No Longer Active Mitch Urbina DO Active SIMVASTATIN 40 MG ORAL TABLET 1 tab daily at bedtime SIMVASTATIN 01117120021 Active Mitch Urbina DO Active SIMVASTATIN 20 MG ORAL TABLET 1 tab daily at bedtime 2 SIMVASTATIN 57194822683 No Longer Active Mitch Urbina DO Active LOVENOX 100 MG/ML SUBCUTANEOUS SOLUTION One injection twice a da y ENOXAPARIN SODIUM 22284291499 No Longer Active Carmine Yusuf MD Active JANUVIA 50 MG ORAL TABLET Take one by mouth daily SITAGLIPTIN PHOSPHATE 84634966805 Active Renee Elvin DE LA ROSA Active JANUVIA 100 MG ORAL TABLET 1/2 by mouth every day 2011 SITAGLIPTIN PHOSPHATE 89655604910 No Longer Active Bijal Segal RN Acti ve METFORMIN HCL 500 MG ORAL TABLET 2 by mouth twice daily METFORMIN HCL 69530439318 No Longer Active Renee Oconnor LPN Active COLCRYS 0.6 MG ORAL TABLET 1 po q 6 hours prn gout pain COLCHICINE 65969305617 No Longer Active Camila Reese Active LISINOPRIL 5 MG ORAL TABLET 1 by mouth every day 11/17 LISINOPRIL 62280088048 No Longer Active Nguyenmolly Perez Active KLOR-CON 20 MEQ ORAL PACKET Take one by mouth daily 09/10/08 POTASSIUM CHLORIDE 64172107514 No Longer Active Nguyenmolly Perez Active FUROSEMIDE 40 MG ORAL TABLET 1 by mouth daily F UROSEMIDE 49903085322 No Longer Active Nguyen Ana Active PROVIGIL 100 MG ORAL TABLET Take one by mouth daily 08/20/04 MODAFINIL 14386274139 No Longer Active Mitch Urbina DO Active BACTRIM DS 800-160 MG ORAL TABLET 1 tab by mouth twice daily 201 10/19/09 TRIMETHOPRIM-SULFAMETHOXAZOLE 83414092445 No Longer Active Elian Hays MD Active ADULT ASPIRIN LOW STRENGTH 81 MG ORAL TABLET DISINTEGR ATING 1 by mouth every daily ASPIRIN 99828381513 Active Mitch Urbina DO Ac tive METOPROLOL TARTRATE 50 MG ORAL TABLET 1 by mouth twice daily METOPROLOL TARTRATE 03791866294 Active Anabella Ocampo Activ e BACTRIM DS 800-160 MG ORAL TABLET 1 tab by mouth twice daily 201 10/19/09 BACTRIM DS 800-160 MG ORAL TABLET 245048 TRIMETHOPRIM-SULFAMETHOXAZOLE Inactive PROVIGIL 100 MG ORAL TABLET Take one by mouth daily 08/20/04 PROVIGIL 100 MG ORAL TABLET 929871 MODAFINIL Inactive FUROSEMIDE 40 MG ORAL TABLET 1 by mouth daily FUROSEMIDE 40 MG ORAL TABLET 284670 FUROSEMIDE Inactive KLOR-CON 20 MEQ ORAL PACKET Take one by mouth daily 09/10/08 KLOR- CON 20 MEQ ORAL PACKET 0331739 POTASSIUM CHLORIDE Inactive LISINOPRIL 5 MG ORAL TABLET 1 by mouth every day 11/17 LISINOPRIL 5 MG ORAL TABLET 641459 LISINOPRIL Inactive COLCRYS 0.6 MG ORAL TABLET 1 po q 6 hours prn gout pain COLCRYS 0.6 MG ORAL TABLET 566684 COLCHICINE Inactive JANUVIA 100 MG ORAL TABLET 1/2 by mouth every day 2011 JANUVIA 100 MG ORAL TABLET SITAGLIPTIN PHOSPHATE Inactive SIMVASTATIN 20 MG ORAL TABLET 1 tab daily at bedtime 2 SIMVASTATIN 20 MG ORAL TABLET 467772 SIMVASTATIN Inactive COUMADIN 6 MG ORAL TABLET 1 by mouth every other day 2 COUMADIN 6 MG ORAL TABLET 025377 WARFARIN SODIUM Inactive COUMADIN 5 MG ORAL TABLET 1 by mouth every other day 2 COUMADIN 5 MG ORAL TABLET 838707 WARFARIN SODIUM Inactive LISINOPRIL 20 MG ORAL TABLET 1 tab po at HS LISINOPRIL 20 MG ORAL TABLET 102362 LISINOPRIL Inactive LISINOPRIL-HYDROCHLOROTHIAZIDE 20-12.5 MG ORAL TABLET 1 tab by m outh daily LISINOPRIL-HYDROCHLOROTHIAZIDE 20-12.5 MG ORAL TABLET 505359 LISINOPRIL-HYDROCHLOROTHIAZIDE Inactive POLYTRIM 30076-3.1 UNIT/ML-% OPHTHALMIC SOLUTION 1 rui p in affected eye every 3 hours while awake x 7 days POLYTRIM 1000 0-0.1 UNIT/ML-% OPHTHALMIC SOLUTION 805857 POLYMYXIN B-TRIMETHOPRIM Inactive COUMADIN 4 MG ORAL TABLET 1 tablet daily COUMADIN 4 MG ORAL TABLET 318172 WARFARIN SODIUM Inactive CLONIDINE HCL 0.1 MG ORAL TABLET 1 po bid 7 days, then 1/2 t ab po bid 7 days CLONIDINE HCL 0.1 MG ORAL TABLET 185326 CLONIDIN E HCL Inactive ALLOPURINOL 300 MG ORAL TABLET Take 1 tablet by mouth daily 2012 ALLOPURINOL 300 MG ORAL TABLET 759405 ALLOPURINOL I nactive MECLIZINE HCL 25 MG ORAL TABLET 1 po tid 3 days, then 1/2 ta b tid 3 days MECLIZINE HCL 25 MG ORAL TABLET 323784 MECLIZINE HCL Inactive AMLODIPINE BESYLATE 5 MG ORAL TABLET 1 tablet by mouth daily 201 01/20/04 AMLODIPINE BESYLATE 5 MG ORAL TABLET 503517 AMLODIPINE BESYLATE Inactive KEFLEX 500 MG ORAL CAPSULE 1 po qid K EFLEX 500 MG ORAL CAPSULE 841915 CEPHALEXIN Inactive COLCRYS 0.6 MG ORAL TABLET 1 tab qid prn gout COLCRYS 0.6 MG ORAL TABLET 109977 COLCHICINE Inactive FAMOTIDINE 20 MG ORAL TABLET by mouth twice a day 2017 FAMOTIDINE 20 MG ORAL TABLET 224144 FAMOTIDINE Inactive GLIMEPIRIDE 2 MG ORAL TABLET 1 po BID GLIMEPIRIDE 2 MG ORAL TABLET 322016 GLIMEPIRIDE Inactive LOVENOX 100 MG/ML SUBCUTANEOUS SOLUTION One injection twice a da y LOVENOX 100 MG/ML SUBCUTANEOUS SOLUTION 248829 ENOXAPAR IN SODIUM Inactive Vital Signs Date [...] 4.3-6.0 Encounters Code Encounter Date Provider Facility CPT-05340 [id number] Vst-Est Level IV 10:52:00 DECAL DECORATOR Stephy Urbina [facility] CPT-86660 Level 3 Est. Patient 18:25:53 CDT Mitch luis [facility] CPT-35999 Level 3 Est. Patient 19:43:34 CDT Mitch luis [facility] CPT-91989 Level 4 Est. Patient 09:30:18 CDT Mitch luis [facility] CPT-49254 Level 3 Est. Patient 15:10:[address] [facility] CPT-56583 Level 3 Est. Patient 15:03:[address] [facility] CPT-79514 Level 3 Est. Patient 14:21:06 CDT Mitch luis [facility] CPT-20450 Level 3 Est. Patient 14:52:[address] [facility] CPT-08984 Level 3 Est. Patient 09:34:30 DECAL DECORATOR Mitch luis [facility] CPT-12405 Level 3 Est. Patient 09:37:15 CDT Mitch luis [facility] CPT-08336 Level 3 Est. Patient 17:01:00 DECAL DECORATOR Mitch luis [facility] CPT-17491 Level 3 Est. Patient 13:53:19 DECAL DECORATOR Mitch luis [facility] CPT-29699 Level 3 Est. Patient 19:19:37 DECAL DECORATOR Mitch luis [facility] CPT-05102 Level 3 Est. Patient 13:25:53 DECAL DECORATOR Tavo toure MD [facility] CPT-30177 Level 3 Est. Patient 18:17:28 CDT Mitch luis [facility] CPT-58773 Level 3 Est. Patient 15:22:57 CDT Mitch luis [facility] CPT-48426 Level 3 Est. Patient 18:21:50 CDT Mitch luis [facility] CPT-85916 Level 3 Est. Patient 18:20:38 CDT Mitch luis [facility] CPT-27707 Level 3 Est. Patient 15:37:55 CDT Mitch luis [facility] CPT-08498 Level 2 Est. Patient 15:54:44 CDT Carmine benton MD [facility] CPT-45321 Level 3 Est. Patient 21:46:01 DECAL DECORATOR Mitch luis [facility] CPT-72028 Level 3 Est. Patient 22:15:50 CDT Mitch luis [facility] CPT-16330 Level 3 Est. Patient 10:48:15 CDT Mitch luis [facility] CPT-88866 Level 3 Est. Patient 23:20:57 CDT Tavo toure MD [facility] CPT-10905 Level 3 Est. Patient 16:26:13 CDT Mitch Ambrose Nona luis [facility] Procedures Code Procedure Name Date Entry Date Standard Desc ription CPT-JTINJ Asp/Joint Injection 18:47:02 CDT CPT-81551 Venipuncture Draw Fee 09:26:17 CDT CPT-35456 PT/INR - LAB USE ONLY 13:32:49 DECAL DECORATOR CPT-40773 Venipuncture Draw Fee 13:32:49 DECAL DECORATOR CPT-79650 PT/INR - LAB USE ONLY 10:34:49 DECAL DECORATOR CPT-64411 Venipuncture Draw Fee 10:34:48 DECAL DECORATOR CPT-64922 PT/INR - LAB USE ONLY 09:22:03 DECAL DECORATOR CPT-51861 Venipuncture Draw Fee 09:22:02 DECAL DECORATOR CPT-02484 Hemoccult IFOBT - LAB USE ONLY 10:27:22 CDT CPT-62921 Venipuncture Draw Fee 08:27:08 CDT CPT-69500 Liver Profile - LAB USE ONLY 08:27:07 CDT 2 CPT-57743 Microalbumin - LAB USE ONLY 08:27:07 CDT 20 25/05/09 CPT-52521 PT/INR - LAB USE ONLY 08:27:07 CDT CPT-27017 HGBA1C - LAB USE ONLY 08:27:07 CDT CPT-51348 CBC - LAB USE ONLY 08:27:07 CDT CPT-12597 Venipuncture Draw Fee 11:09:14 CDT CPT-88813 Venipuncture Draw Fee 08:32:21 DECAL DECORATOR CPT-96041 Venipuncture Draw Fee 09:38:56 DECAL DECORATOR CPT-01293 No Charge Offi Visit 21:36:07 CDT 1 CPT-86680 Venipuncture Draw Fee 10:13:28 DECAL DECORATOR CPT-61748 Venipuncture Draw Fee 08:31:11 CDT CPT-90305 Aspir/Inject Med Joint 18:17:28 CDT CPT-88824 Venipuncture Draw Fee 10:13:30 CDT CPT-18333 Venipuncture Draw Fee 08:31:43 DECAL DECORATOR CPT-JTINJ Joint Injection 18:34:50 CDT CPT-40768 Knee 3V 12:25:09 CDT CPT-45540 Venipuncture Draw Fee 12:15:57 CDT CPT-060 Medical Surveillance Exam 21:31:43 CDT 2011 CPT-75091 Venipuncture Draw Fee 08:32:05 DECAL DECORATOR CPT-OV Office Visit 18:19:06 CDT
--- OUTSIDE RECORDS SUMMARY | 2020-01-18 13:45 | XMS REPORT | Clinical Summary ---
Author Author Admin, Mitch Leon Organization [facility] Address Unknown Phone Unavailable Allergies, Adverse Reactions, [...] KNEES, 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 Active Mtich Arnol Carlitos DO Osteoarthrosis, unsp ecified whether [...] mouth twice daily f or diabetes GLIMEPIRIDE 84328463357 Active Mitch Urbina DO Active GLIMEPIRIDE 2 MG ORAL TABLET 1 po BID GLIMEPI RIDE 99164138778 No Longer Active Mitch Urbina DO Active AMLODIPINE BESYLATE 5 MG ORAL TABLET 1 tablet by mouth daily AMLODIPINE BESYLATE 17918402864 Active Mitch Urbina DO Active PROVIGIL 200 MG ORAL TABLET 1/2 tab po q day MODA FINIL 63770297724 Active Renee 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 FAMOTIDINE 20 MG ORAL TABLET by mouth twice a day 2017 FAMOTIDINE 77648555421 No Longer Active Mitch Urbina DO Active COLCRYS 0.6 MG ORAL TABLET 1 tab qid prn gout C OLCHICINE 66017919227 No Longer Active Mitch Urbina DO Active KEFLEX 500 MG ORAL CAPSULE 1 po qid CEPHALEXI N 41173755768 No Longer Active Mitch Urbina DO Active LOSARTAN POTASSIUM 100 MG ORAL TABLET 1 pill by mouth daily, for blood pressure LOSARTAN POTASSIUM 57193596054 Active Ana Ocampo Active AMLODIPINE BESYLATE 5 MG ORAL TABLET 1 tablet by mouth daily 201 01/20/04 AMLODIPINE BESYLATE 09691659126 No Longer Active Joe fulton APRN Active MITIGARE 0.6 MG ORAL CAPSULE 2 capsules at onset of go ut pain, then take one capsule at 1 hour if symptoms persist. COLCHICINE 59 783080348 Active Mitch Urbina DO Active COUMADIN 1 MG ORAL TABLET 2 tabs orally daily with the 5mg tab to equal 7mg daily WARFARIN SODIUM 93819882583 Active Mitch Urbina DO Active INVOKANA 100 MG ORAL TABLET 1 tablet orally daily CANAGLIFLOZIN 51952592692 Active Ana Ocampo Active MINOXIDIL 2.5 MG ORAL TABLET 1 tablet daily for high blood press ure MINOXIDIL 46454587069 Active Renee Quirogamonserrat DE LA ROSA Active MECLIZINE HCL 25 MG ORAL TABLET 1 po tid 3 days, then 1/2 ta b tid 3 days MECLIZINE HCL 06684816139 No Longer Active Corey SEGURA Active ALLOPURINOL 300 MG ORAL TABLET Take 1 tablet by mouth daily 2012 ALLOPURINOL 36938418165 No Longer Active Corey SEGURA Active CLONIDINE HCL 0.1 MG ORAL TABLET 1 po bid 7 days, then 1/2 t ab po bid 7 days CLONIDINE HCL 84744410735 No Longer Active Corey SEGURA Active COUMADIN 5 MG ORAL TABLET 1 tab PO daily WARFAR IN SODIUM 46842173239 Active Mitch Urbina DO Active COUMADIN 4 MG ORAL TABLET 1 tablet daily WARFAR IN SODIUM 83129608008 No Longer Active Corey SEGURA Active POLYTRIM 55643-1.1 UNIT/ML-% OPHTHALMIC SOLUTION 1 rui p in affected eye every 3 hours while awake x 7 days POLYMYXIN B-TRIMETHOP RIM 38799199117 No Longer Active Corey SEGURA Active LOSARTAN POTASSIUM-HCTZ 100-12.5 MG ORAL TABLET 1 by m outh daily for high blood pressure LOSARTAN POTASSIUM-HCTZ 67937827466 No Longer A ctive Mitch Urbina DO Active LISINOPRIL-HYDROCHLOROTHIAZIDE 20-12.5 MG ORAL TABLET 1 tab by m outh daily LISINOPRIL-HYDROCHLOROTHIAZIDE 36852933458 No Longer Active Mitch Urbina DO Active LISINOPRIL 20 MG ORAL TABLET 1 tab po at HS LIS INOPRIL 72664485516 No Longer Active Mitch Urbina DO Active COUMADIN 5 MG ORAL TABLET 1 by mouth every other day 2 WARFARIN SODIUM 61236669467 No Longer Active Mitch Urbina DO Active COUMADIN 6 MG ORAL TABLET 1 by mouth every other day 2 WARFARIN SODIUM 33473591040 No Longer Active Mitch Urbina DO Active SIMVASTATIN 40 MG ORAL TABLET 1 tab daily at bedtime SIMVASTATIN 14652787761 Active Mitch Urbina DO Active SIMVASTATIN 20 MG ORAL TABLET 1 tab daily at bedtime 2 SIMVASTATIN 99438101736 No Longer Active Mitch Urbina DO Active LOVENOX 100 MG/ML SUBCUTANEOUS SOLUTION One injection twice a da y ENOXAPARIN SODIUM 85525991248 No Longer Active Carmine Yusuf MD Active JANUVIA 50 MG ORAL TABLET Take one by mouth daily SITAGLIPTIN PHOSPHATE 18082875817 Active Renee Elvin DE LA ROSA Active JANUVIA 100 MG ORAL TABLET 1/2 by mouth every day 2011 SITAGLIPTIN PHOSPHATE 17218824430 No Longer Active Bijal Segal RN Acti ve METFORMIN HCL 500 MG ORAL TABLET 2 by mouth twice daily METFORMIN HCL 64000778018 No Longer Active Renee Oconnor LPN Active COLCRYS 0.6 MG ORAL TABLET 1 po q 6 hours prn gout pain COLCHICINE 60412785445 No Longer Active Camila Reese Active LISINOPRIL 5 MG ORAL TABLET 1 by mouth every day 11/17 LISINOPRIL 09248002651 No Longer Active Nguyen Perez Active KLOR-CON 20 MEQ ORAL PACKET Take one by mouth daily 20 09/10/08 POTASSIUM CHLORIDE 30971402158 No Longer Active Nguyen Perez Active FUROSEMIDE 40 MG ORAL TABLET 1 by mouth daily F UROSEMIDE 96732425056 No Longer Active Nguyen Perez Active PROVIGIL 100 MG ORAL TABLET Take one by mouth daily 20 08/20/04 MODAFINIL 91302902437 No Longer Active Mitch Urbina DO Active BACTRIM DS 800-160 MG ORAL TABLET 1 tab by mouth twice daily 201 10/19/09 TRIMETHOPRIM-SULFAMETHOXAZOLE 00817706657 No Longer Active Elian Hays MD Active ADULT ASPIRIN LOW STRENGTH 81 MG ORAL TABLET DISINTEGR ATING 1 by mouth every daily ASPIRIN 12915814527 Active Mitch Ambrose Calritos DO Ac tive METOPROLOL TARTRATE 50 MG ORAL TABLET 1 by mouth twice daily METOPROLOL TARTRATE 06515695585 Active Ana Ocampo Activ e BACTRIM DS 800-160 MG ORAL TABLET 1 tab by mouth twice daily 201 10/19/09 BACTRIM DS 800-160 MG ORAL TABLET 585146 TRIMETHOPRIM-SULFAMETHOXAZOLE Inactive PROVIGIL 100 MG ORAL TABLET Take one by mouth daily 08/20/04 PROVIGIL 100 MG ORAL TABLET 347691 MODAFINIL Inactive FUROSEMIDE 40 MG ORAL TABLET 1 by mouth daily FUROSEMIDE 40 MG ORAL TABLET 030903 FUROSEMIDE Inactive KLOR-CON 20 MEQ ORAL PACKET Take one by mouth daily 09/10/08 KLOR- CON 20 MEQ ORAL PACKET 7769060 POTASSIUM CHLORIDE Inactive LISINOPRIL 5 MG ORAL TABLET 1 by mouth every day 11/17 LISINOPRIL 5 MG ORAL TABLET 627125 LISINOPRIL Inactive COLCRYS 0.6 MG ORAL TABLET 1 po q 6 hours prn gout pain COLCRYS 0.6 MG ORAL TABLET 955482 COLCHICINE Inactive JANUVIA 100 MG ORAL TABLET 1/2 by mouth every day 2011 JANUVIA 100 MG ORAL TABLET SITAGLIPTIN PHOSPHATE Inactive SIMVASTATIN 20 MG ORAL TABLET 1 tab daily at bedtime 2 SIMVASTATIN 20 MG ORAL TABLET 161986 SIMVASTATIN Inactive COUMADIN 6 MG ORAL TABLET 1 by mouth every other day 2 COUMADIN 6 MG ORAL TABLET 755759 WARFARIN SODIUM Inactive COUMADIN 5 MG ORAL TABLET 1 by mouth every other day 2 COUMADIN 5 MG ORAL TABLET 347482 WARFARIN SODIUM Inactive LISINOPRIL 20 MG ORAL TABLET 1 tab po at HS LISINOPRIL 20 MG ORAL TABLET 640948 LISINOPRIL Inactive LISINOPRIL-HYDROCHLOROTHIAZIDE 20-12.5 MG ORAL TABLET 1 tab by m outh daily LISINOPRIL-HYDROCHLOROTHIAZIDE 20-12.5 MG ORAL TABLET 204824 LISINOPRIL-HYDROCHLOROTHIAZIDE Inactive POLYTRIM 36805-4.1 UNIT/ML-% OPHTHALMIC SOLUTION 1 rui p in affected eye every 3 hours while awake x 7 days POLYTRIM 1000 0-0.1 UNIT/ML-% OPHTHALMIC SOLUTION 996732 POLYMYXIN B-TRIMETHOPRIM Inactive COUMADIN 4 MG ORAL TABLET 1 tablet daily COUMADIN 4 MG ORAL TABLET 477312 WARFARIN SODIUM Inactive CLONIDINE HCL 0.1 MG ORAL TABLET 1 po bid 7 days, then 1/2 t ab po bid 7 days CLONIDINE HCL 0.1 MG ORAL TABLET 707515 CLONIDIN E HCL Inactive ALLOPURINOL 300 MG ORAL TABLET Take 1 tablet by mouth daily 2012 ALLOPURINOL 300 MG ORAL TABLET 856312 ALLOPURINOL I nactive MECLIZINE HCL 25 MG ORAL TABLET 1 po tid 3 days, then 1/2 ta b tid 3 days MECLIZINE HCL 25 MG ORAL TABLET 213757 MECLIZINE HCL Inactive AMLODIPINE BESYLATE 5 MG ORAL TABLET 1 tablet by mouth daily 201 01/20/04 AMLODIPINE BESYLATE 5 MG ORAL TABLET 384889 AMLODIPINE BESYLATE Inactive KEFLEX 500 MG ORAL CAPSULE 1 po qid K EFLEX 500 MG ORAL CAPSULE 184082 CEPHALEXIN Inactive COLCRYS 0.6 MG ORAL TABLET 1 tab qid prn gout COLCRYS 0.6 MG ORAL TABLET 744616 COLCHICINE Inactive FAMOTIDINE 20 MG ORAL TABLET by mouth twice a day 2017 FAMOTIDINE 20 MG ORAL TABLET 896505 FAMOTIDINE Inactive GLIMEPIRIDE 2 MG ORAL TABLET 1 po BID GLIMEPIRIDE 2 MG ORAL TABLET 969222 GLIMEPIRIDE Inactive LOVENOX 100 MG/ML SUBCUTANEOUS SOLUTION One injection twice a da y LOVENOX 100 MG/ML SUBCUTANEOUS SOLUTION 091228 ENOXAPAR IN SODIUM Inactive Vital Signs Date [...] 4.3-6.0 Encounters Code Encounter Date Provider Facility CPT-75067 [id number] Vst-Est Level IV 10:52:00 LEARNING SUPPORT SERVICES DIRECTOR Stephy Urbina [facility] CPT-45078 Level 3 Est. Patient 18:25:53 CDT Mitch Ambrose Nona luis [facility] CPT-37049 Level 3 Est. Patient 19:43:34 CDT Mitch Arnol Nona luis [facility] CPT-97431 Level 4 Est. Patient 09:30:18 CDT Mitch Ambrose Nona janelle [facility] CPT-27813 Level 3 Est. Patient 15:10:14 CDT Joe kamara [facility] CPT-51970 Level 3 Est. Patient 15:03:46 CDT Joe kamara [facility] CPT-16978 Level 3 Est. Patient 14:21:06 CDT Mitch Arnol Castellano janelle [facility] CPT-29266 Level 3 Est. Patient 14:52:06 CDT Joe Jason courtangela [facility] CPT-31785 Level 3 Est. Patient 09:34:30 LEARNING SUPPORT SERVICES DIRECTOR Mitch luis [facility] CPT-58201 Level 3 Est. Patient 09:37:15 CDT Mitch luis [facility] CPT-22037 Level 3 Est. Patient 17:01:00 LEARNING SUPPORT SERVICES DIRECTOR Mitch luis [facility] CPT-21229 Level 3 Est. Patient 13:53:19 LEARNING SUPPORT SERVICES DIRECTOR Mitch luis [facility] CPT-72646 Level 3 Est. Patient 19:19:37 LEARNING SUPPORT SERVICES DIRECTOR Mitch luis [facility] CPT-69459 Level 3 Est. Patient 13:25:53 LEARNING SUPPORT SERVICES DIRECTOR Tavo toure MD [facility] CPT-33576 Level 3 Est. Patient 18:17:28 CDT Mitch luis [facility] CPT-46487 Level 3 Est. Patient 15:22:57 CDT Mitch luis [facility] CPT-17722 Level 3 Est. Patient 18:21:50 CDT Mitch luis [facility] CPT-58489 Level 3 Est. Patient 18:20:38 CDT Mitch luis [facility] CPT-72728 Level 3 Est. Patient 15:37:55 CDT Mitch luis [facility] CPT-75954 Level 2 Est. Patient 15:54:44 CDT Carmine benton MD [facility] CPT-02923 Level 3 Est. Patient 21:46:01 LEARNING SUPPORT SERVICES DIRECTOR Mitch luis [facility] CPT-31037 Level 3 Est. Patient 22:15:50 CDT Mitch luis [facility] CPT-59146 Level 3 Est. Patient 10:48:15 CDT Mitch luis [facility] CPT-04399 Level 3 Est. Patient 23:20:57 CDT Tavo toure MD [facility] CPT-66913 Level 3 Est. Patient 16:26:13 CDT Mitch Arnol luis [facility] Procedures Code Procedure Name Date Entry Date Standard Desc ription CPT-JTINJ Asp/Joint Injection 18:47:02 CDT CPT-16153 Venipuncture Draw Fee 09:26:17 CDT CPT-78560 PT/INR - LAB USE ONLY 13:32:49 LEARNING SUPPORT SERVICES DIRECTOR CPT-98645 Venipuncture Draw Fee 13:32:49 LEARNING SUPPORT SERVICES DIRECTOR CPT-59868 PT/INR - LAB USE ONLY 10:34:49 LEARNING SUPPORT SERVICES DIRECTOR CPT-93509 Venipuncture Draw Fee 10:34:48 LEARNING SUPPORT SERVICES DIRECTOR CPT-92972 PT/INR - LAB USE ONLY 09:22:03 LEARNING SUPPORT SERVICES DIRECTOR CPT-36897 Venipuncture Draw Fee 09:22:02 LEARNING SUPPORT SERVICES DIRECTOR CPT-56332 Hemoccult IFOBT - LAB USE ONLY 10:27:22 CDT CPT-15268 Venipuncture Draw Fee 08:27:08 CDT CPT-82991 Liver Profile - LAB USE ONLY 08:27:07 CDT 2 CPT-55425 Microalbumin - LAB USE ONLY 08:27:07 CDT 20 25/05/09 CPT-99364 PT/INR - LAB USE ONLY 08:27:07 CDT CPT-26941 HGBA1C - LAB USE ONLY 08:27:07 CDT CPT-22553 CBC - LAB USE ONLY 08:27:07 CDT CPT-67883 Venipuncture Draw Fee 11:09:14 CDT CPT-44318 Venipuncture Draw Fee 08:32:21 LEARNING SUPPORT SERVICES DIRECTOR CPT-54557 Venipuncture Draw Fee 09:38:56 LEARNING SUPPORT SERVICES DIRECTOR CPT-91626 No Charge Offi Visit 21:36:07 CDT 1 CPT-43333 Venipuncture Draw Fee 10:13:28 LEARNING SUPPORT SERVICES DIRECTOR CPT-79123 Venipuncture Draw Fee 08:31:11 CDT CPT-52997 Aspir/Inject Med Joint 18:17:28 CDT CPT-46411 Venipuncture Draw Fee 10:13:30 CDT CPT-04396 Venipuncture Draw Fee 08:31:43 LEARNING SUPPORT SERVICES DIRECTOR CPT-JTINJ Joint Injection 18:34:50 CDT CPT-06435 Knee 3V 12:25:09 CDT CPT-11979 Venipuncture Draw Fee 12:15:57 CDT CPT-060 Medical Surveillance Exam 21:31:43 CDT 2011 CPT-01622 Venipuncture Draw Fee 08:32:05 LEARNING SUPPORT SERVICES DIRECTOR CPT-OV Office Visit 18:19:06 CDT
--- OUTSIDE RECORDS SUMMARY | 2020-01-18 13:46 | XMS REPORT | Clinical Summary ---
[...] for 1 week, then once daily FLUTICASONE PA OPIONATE 08954925955 Active Becky Sell RECREATION PROGRAM COORDINATOR Active PREDNISONE 20 MG ORAL TABLET 2 tabs daily for 3 days 1 tab d aily for 3 days PREDNISONE 04770492448 No Longer Active Becky Sell RECREATION PROGRAM COORDINATOR Active MINOXIDIL 2.5 MG ORAL TABLET 1 tablet twice daily for high b lood pressure MINOXIDIL 94379386781 Active Mitch Urbina DO Ac tive METFORMIN HCL ER 500 MG ORAL TABLET EXTENDED RELEASE 2 4 HOUR 2 tablets by mouth twice daily METFORMIN HCL 74259564549 Active Mitch Urbina DO Active GLIMEPIRIDE 4 MG ORAL TABLET 1 tablet by mouth twice daily f or diabetes GLIMEPIRIDE 33280296718 Active Mitch Urbina DO Active GLIMEPIRIDE 2 MG ORAL TABLET 1 po BID GLIMEPI RIDE 23382106990 No Longer Active Mitch Urbina DO Active AMLODIPINE BESYLATE 5 MG ORAL TABLET 1 tablet by mouth daily AMLODIPINE BESYLATE 43560669465 Active Mitch Urbina DO Active PROVIGIL 200 MG ORAL TABLET 1/2 tab po q day MODA FINIL 14694772613 Active Renee Oconnor LPN Active FAMOTIDINE 20 MG ORAL TABLET by mouth twice a day 2017 FAMOTIDINE 80156586317 No Longer Active Mitch Urbina DO Active COLCRYS 0.6 MG ORAL TABLET 1 tab qid prn gout C OLCHICINE 62982502171 No Longer Active Mitch Urbina DO Active KEFLEX 500 MG ORAL CAPSULE 1 po qid CEPHALEXI N 98879766117 No Longer Active Mitch Urbina DO Active LOSARTAN POTASSIUM 100 MG ORAL TABLET 1 pill by mouth daily, for blood pressure LOSARTAN POTASSIUM 66401329629 Active Mitch Urbina DO Active AMLODIPINE BESYLATE 5 MG ORAL TABLET 1 tablet by mouth daily 201 01/20/04 AMLODIPINE BESYLATE 99318412057 No Longer Active Joe fulton APRN Active MITIGARE 0.6 MG ORAL CAPSULE 2 capsules at onset of go ut pain, then take one capsule at 1 hour if symptoms persist. COLCHICINE 59 529786309 Active Mitch Urbina DO Active COUMADIN 1 MG ORAL TABLET 2 tabs orally daily with the 5mg tab to equal 7mg daily WARFARIN SODIUM 55841547033 Active Renee Oconnor LPN Active INVOKANA 100 MG ORAL TABLET 1 tablet orally daily CANAGLIFLOZIN 60143433488 Active Mitch Urbina DO Active MECLIZINE HCL 25 MG ORAL TABLET 1 po tid 3 days, then 1/2 ta b tid 3 days MECLIZINE HCL 47366536671 No Longer Active Corey SEGURA Active ALLOPURINOL 300 MG ORAL TABLET Take 1 tablet by mouth daily 2012 ALLOPURINOL 28939659563 No Longer Active Corey SEGURA Active CLONIDINE HCL 0.1 MG ORAL TABLET 1 po bid 7 days, then 1/2 t ab po bid 7 days CLONIDINE HCL 24491265792 No Longer Active Corey SEGURA Active COUMADIN 5 MG ORAL TABLET 1 tab PO daily WARFAR IN SODIUM 25627212939 Active Renee Oconnor LPN Active COUMADIN 4 MG ORAL TABLET 1 tablet daily WARFAR IN SODIUM 42238633020 No Longer Active Corey SEGURA Active POLYTRIM 81060-2.1 UNIT/ML-% OPHTHALMIC SOLUTION 1 rui p in affected eye every 3 hours while awake x 7 days POLYMYXIN B-TRIMETHOP RIM 33409364468 No Longer Active Corey SEGURA Active LOSARTAN POTASSIUM-HCTZ 100-12.5 MG ORAL TABLET 1 by m outh daily for high blood pressure LOSARTAN POTASSIUM-HCTZ 06598810665 No Longer A ctive Mitch Urbina DO Active LISINOPRIL-HYDROCHLOROTHIAZIDE 20-12.5 MG ORAL TABLET 1 tab by m outh daily LISINOPRIL-HYDROCHLOROTHIAZIDE 33681272602 No Longer Active Mitch Urbina DO Active LISINOPRIL 20 MG ORAL TABLET 1 tab po at HS LIS INOPRIL 51843766806 No Longer Active Mitch Urbina DO Active COUMADIN 5 MG ORAL TABLET 1 by mouth every other day 2 WARFARIN SODIUM 95872695081 No Longer Active Mitch Urbina DO Active COUMADIN 6 MG ORAL TABLET 1 by mouth every other day 2 WARFARIN SODIUM 12389433825 No Longer Active Mitch Urbina DO Active SIMVASTATIN 40 MG ORAL TABLET 1 tab daily at bedtime SIMVASTATIN 81156359064 Active Maria Rivas RN Active SIMVASTATIN 20 MG ORAL TABLET 1 tab daily at bedtime 2 SIMVASTATIN 35922232591 No Longer Active Mitch Urbina DO Active LOVENOX 100 MG/ML SUBCUTANEOUS SOLUTION One injection twice a da y ENOXAPARIN SODIUM 26908092642 No Longer Active Carmine Yusuf MD Active JANUVIA 50 MG ORAL TABLET Take one by mouth daily SITAGLIPTIN PHOSPHATE 25726384080 Active Renee Oconnor LPN Active JANUVIA 100 MG ORAL TABLET 1/2 by mouth every day 2011 SITAGLIPTIN PHOSPHATE 20061307972 No Longer Active Bijal Segal RN Acti ve METFORMIN HCL 500 MG ORAL TABLET 2 by mouth twice daily METFORMIN HCL 33861299299 No Longer Active Renee Oconnor LPN Active COLCRYS 0.6 MG ORAL TABLET 1 po q 6 hours prn gout pain COLCHICINE 95992970612 No Longer Active Camila Reese Active LISINOPRIL 5 MG ORAL TABLET 1 by mouth every day 11/17 LISINOPRIL 16004664962 No Longer Active Nguyen Ana Active KLOR-CON 20 MEQ ORAL PACKET Take one by mouth daily 09/10/08 POTASSIUM CHLORIDE 05374353648 No Longer Active Nguyen Ana Active FUROSEMIDE 40 MG ORAL TABLET 1 by mouth daily F UROSEMIDE 36024699250 No Longer Active Nguyen Ana Active PROVIGIL 100 MG ORAL TABLET Take one by mouth daily 08/20/04 MODAFINIL 67250338369 No Longer Active Mitch Urbina DO Active BACTRIM DS 800-160 MG ORAL TABLET 1 tab by mouth twice daily 201 10/19/09 TRIMETHOPRIM-SULFAMETHOXAZOLE 41026042826 No Longer Active Elian Hays MD Active ADULT ASPIRIN LOW STRENGTH 81 MG ORAL TABLET DISINTEGR ATING 1 by mouth every daily ASPIRIN 90922438592 Active Mitch Urbina DO Ac tive METOPROLOL TARTRATE 50 MG ORAL TABLET 1 by mouth twice daily METOPROLOL TARTRATE 37740857767 Active Maria Rivas RN Ac tive BACTRIM DS 800-160 MG ORAL TABLET 1 tab by mouth twice daily 201 10/19/09 BACTRIM DS 800-160 MG ORAL TABLET 391577 TRIMETHOPRIM-SULFAMETHOXAZOLE Inactive PROVIGIL 100 MG ORAL TABLET Take one by mouth daily 08/20/04 PROVIGIL 100 MG ORAL TABLET 389529 MODAFINIL Inactive FUROSEMIDE 40 MG ORAL TABLET 1 by mouth daily FUROSEMIDE 40 MG ORAL TABLET 367591 FUROSEMIDE Inactive KLOR-CON 20 MEQ ORAL PACKET Take one by mouth daily 09/10/08 KLOR- CON 20 MEQ ORAL PACKET 1482448 POTASSIUM CHLORIDE Inactive LISINOPRIL 5 MG ORAL TABLET 1 by mouth every day 11/17 LISINOPRIL 5 MG ORAL TABLET 521888 LISINOPRIL Inactive COLCRYS 0.6 MG ORAL TABLET 1 po q 6 hours prn gout pain COLCRYS 0.6 MG ORAL TABLET 040557 COLCHICINE Inactive JANUVIA 100 MG ORAL TABLET 1/2 by mouth every day 2011 JANUVIA 100 MG ORAL TABLET SITAGLIPTIN PHOSPHATE Inactive SIMVASTATIN 20 MG ORAL TABLET 1 tab daily at bedtime 2 SIMVASTATIN 20 MG ORAL TABLET 027477 SIMVASTATIN Inactive COUMADIN 6 MG ORAL TABLET 1 by mouth every other day 2 COUMADIN 6 MG ORAL TABLET 912471 WARFARIN SODIUM Inactive COUMADIN 5 MG ORAL TABLET 1 by mouth every other day 2 COUMADIN 5 MG ORAL TABLET 676162 WARFARIN SODIUM Inactive LISINOPRIL 20 MG ORAL TABLET 1 tab po at HS LISINOPRIL 20 MG ORAL TABLET 738136 LISINOPRIL Inactive LISINOPRIL-HYDROCHLOROTHIAZIDE 20-12.5 MG ORAL TABLET 1 tab by m outh daily LISINOPRIL-HYDROCHLOROTHIAZIDE 20-12.5 MG ORAL TABLET 129949 LISINOPRIL-HYDROCHLOROTHIAZIDE Inactive POLYTRIM 29162-1.1 UNIT/ML-% OPHTHALMIC SOLUTION 1 rui p in affected eye every 3 hours while awake x 7 days POLYTRIM 1000 0-0.1 UNIT/ML-% OPHTHALMIC SOLUTION 332803 POLYMYXIN B-TRIMETHOPRIM Inactive COUMADIN 4 MG ORAL TABLET 1 tablet daily COUMADIN 4 MG ORAL TABLET 770555 WARFARIN SODIUM Inactive CLONIDINE HCL 0.1 MG ORAL TABLET 1 po bid 7 days, then 1/2 t ab po bid 7 days CLONIDINE HCL 0.1 MG ORAL TABLET 219998 CLONIDIN E HCL Inactive ALLOPURINOL 300 MG ORAL TABLET Take 1 tablet by mouth daily 2012 ALLOPURINOL 300 MG ORAL TABLET 862296 ALLOPURINOL I nactive MECLIZINE HCL 25 MG ORAL TABLET 1 po tid 3 days, then 1/2 ta b tid 3 days MECLIZINE HCL 25 MG ORAL TABLET 868352 MECLIZINE HCL Inactive AMLODIPINE BESYLATE 5 MG ORAL TABLET 1 tablet by mouth daily 201 01/20/04 AMLODIPINE BESYLATE 5 MG ORAL TABLET 962057 AMLODIPINE BESYLATE Inactive KEFLEX 500 MG ORAL CAPSULE 1 po qid K EFLEX 500 MG ORAL CAPSULE 660716 CEPHALEXIN Inactive COLCRYS 0.6 MG ORAL TABLET 1 tab qid prn gout COLCRYS 0.6 MG ORAL TABLET 227137 COLCHICINE Inactive FAMOTIDINE 20 MG ORAL TABLET by mouth twice a day 2017 FAMOTIDINE 20 MG ORAL TABLET 905855 FAMOTIDINE Inactive GLIMEPIRIDE 2 MG ORAL TABLET 1 po BID GLIMEPIRIDE 2 MG ORAL TABLET 053379 GLIMEPIRIDE Inactive LOVENOX 100 MG/ML SUBCUTANEOUS SOLUTION One injection twice a da y LOVENOX 100 MG/ML SUBCUTANEOUS SOLUTION 354022 ENOXAPAR IN SODIUM Inactive PREDNISONE 20 MG ORAL TABLET 2 tabs daily for 3 days 1 tab d aily for 3 days PREDNISONE 20 MG ORAL TABLET 251684 PREDNISONE Inactive Advance Directives Directive Description Start [...] mg/dL Encounters Code Encounter Date Provider Facility CPT-16505 Level 3 Est. Patient 15:18:36 CDT Becky Se ll RECREATION PROGRAM COORDINATOR [facility] CPT-20441 [id number] Vst-Est Level IV 10:06:35 CDT Stephy Urbina [facility] CPT-60772 [id number] Vst-Est Level IV 10:52:00 STEAM CRANE OPERATOR Stephy Urbina [facility] CPT-43578 Level 3 Est. Patient 18:25:53 CDT Mitch Arnol luis [facility] CPT-66088 Level 3 Est. Patient 19:43:34 CDT Mitch Arnol luis [facility] CPT-87588 Level 4 Est. Patient 09:30:18 CDT Mitch Arnol luis [facility] CPT-24687 Level 3 Est. Patient 15:10:14 CDT Joe kamara [facility] CPT-38557 Level 3 Est. Patient 15:03:46 CDT Joe kamara [facility] CPT-41148 Level 3 Est. Patient 14:21:06 CDT Mitch Arnol luis [facility] CPT-96507 Level 3 Est. Patient 14:52:06 CDT Joe kamara [facility] CPT-88722 Level 3 Est. Patient 09:34:30 STEAM CRANE OPERATOR Mitch Ambrose Nona luis [facility] CPT-70816 Level 3 Est. Patient 09:37:15 CDT Mitch Castellano janelle [facility] CPT-67276 Level 3 Est. Patient 17:01:00 STEAM CRANE OPERATOR Mitch luis [facility] CPT-57311 Level 3 Est. Patient 13:53:19 STEAM CRANE OPERATOR Mitch luis [facility] CPT-16102 Level 3 Est. Patient 19:19:37 STEAM CRANE OPERATOR Mitch luis [facility] CPT-41179 Level 3 Est. Patient 13:25:53 STEAM CRANE OPERATOR Tavo toure MD [facility] CPT-17404 Level 3 Est. Patient 18:17:28 CDT Mitch luis [facility] CPT-40122 Level 3 Est. Patient 15:22:57 CDT Mitch luis [facility] CPT-75940 Level 3 Est. Patient 18:21:50 CDT Mitch luis [facility] CPT-88918 Level 3 Est. Patient 18:20:38 CDT Mitch luis [facility] CPT-93435 Level 3 Est. Patient 15:37:55 CDT Mitch luis [facility] CPT-54656 Level 2 Est. Patient 15:54:44 CDT Carmine benton MD [facility] CPT-38042 Level 3 Est. Patient 21:46:01 STEAM CRANE OPERATOR Mitch luis [facility] CPT-14026 Level 3 Est. Patient 22:15:50 CDT Mitch luis [facility] CPT-69742 Level 3 Est. Patient 10:48:15 CDT Mitch luis [facility] CPT-11761 Level 3 Est. Patient 23:20:57 CDT Tavo toure MD [facility] CPT-87050 Level 3 Est. Patient 16:26:13 CDT Mitch luis [facility] Procedures Code Procedure Name Date Entry Date Standard Desc ription CPT-06994 Venipuncture Draw Fee 17:04:55 CDT CPT-54164 Venipuncture Draw Fee 17:20:50 CDT CPT-61021 Venipuncture Draw Fee 18:00:48 CDT CPT-88385 Venipuncture Draw Fee 14:56:20 CDT CPT-JTINJ Asp/Joint Injection 18:47:02 CDT CPT-85893 Venipuncture Draw Fee 09:26:17 CDT CPT-29176 PT/INR - LAB USE ONLY 13:32:49 STEAM CRANE OPERATOR CPT-97005 Venipuncture Draw Fee 13:32:49 STEAM CRANE OPERATOR CPT-13624 PT/INR - LAB USE ONLY 10:34:49 STEAM CRANE OPERATOR CPT-28184 Venipuncture Draw Fee 10:34:48 STEAM CRANE OPERATOR CPT-33613 PT/INR - LAB USE ONLY 09:22:03 STEAM CRANE OPERATOR CPT-11085 Venipuncture Draw Fee 09:22:02 STEAM CRANE OPERATOR CPT-87442 Hemoccult IFOBT - LAB USE ONLY 10:27:22 CDT CPT-08786 Venipuncture Draw Fee 08:27:08 CDT CPT-43473 Liver Profile - LAB USE ONLY 08:27:07 CDT 2 CPT-16853 Microalbumin - LAB USE ONLY 08:27:07 CDT 20 25/05/09 CPT-71475 PT/INR - LAB USE ONLY 08:27:07 CDT CPT-07097 HGBA1C - LAB USE ONLY 08:27:07 CDT CPT-91001 CBC - LAB USE ONLY 08:27:07 CDT CPT-63940 Venipuncture Draw Fee 11:09:14 CDT CPT-40134 Venipuncture Draw Fee 08:32:21 STEAM CRANE OPERATOR CPT-95329 Venipuncture Draw Fee 09:38:56 STEAM CRANE OPERATOR CPT-16997 No Charge Offi Visit 21:36:07 CDT 1 CPT-85235 Venipuncture Draw Fee 10:13:28 STEAM CRANE OPERATOR CPT-51757 Venipuncture Draw Fee 08:31:11 CDT CPT-86272 Aspir/Inject Med Joint 18:17:28 CDT CPT-05469 Venipuncture Draw Fee 10:13:30 CDT CPT-80463 Venipuncture Draw Fee 08:31:43 STEAM CRANE OPERATOR CPT-JTINJ Joint Injection 18:34:50 CDT CPT-13363 Knee 3V 12:25:09 CDT CPT-15523 Venipuncture Draw Fee 12:15:57 CDT CPT-060 Medical Surveillance Exam 21:31:43 CDT 2011 CPT-49168 Venipuncture Draw Fee 08:32:05 STEAM CRANE OPERATOR CPT-OV Office Visit 18:19:06 CDT
--- OUTSIDE RECORDS SUMMARY | 2020-01-18 13:46 | XMS REPORT | Clinical Summary ---
Author Author Admin, Mitch Leon Organization [facility] [employer] Address Unknown Phone Unavailable Allergies, Adverse Reactions, [...] week, then once daily FLUTICASONE VT OPIONATE 78433096892 Active Becky Sell CLINICAL APPLICATION MANAGER Active PREDNISONE 20 MG ORAL TABLET 2 tabs daily for 3 days 1 tab d aily for 3 days PREDNISONE 80500524272 No Longer Active Becky Sell CLINICAL APPLICATION MANAGER Active MINOXIDIL 2.5 MG ORAL TABLET 1 tablet twice daily for high b lood pressure MINOXIDIL 51523367564 Active Mitch Urbina DO Ac tive METFORMIN HCL ER 500 MG ORAL TABLET EXTENDED RELEASE 2 4 HOUR 2 tablets by mouth twice daily METFORMIN HCL 68991962141 Active Mitch Urbina DO Active GLIMEPIRIDE 4 MG ORAL TABLET 1 tablet by mouth twice daily f or diabetes GLIMEPIRIDE 96752753949 Active Mitch Urbina DO Active GLIMEPIRIDE 2 MG ORAL TABLET 1 po BID GLIMEPI RIDE 41225657111 No Longer Active Mitch Urbina DO Active AMLODIPINE BESYLATE 5 MG ORAL TABLET 1 tablet by mouth daily AMLODIPINE BESYLATE 58139893581 Active Mitch Urbina DO Active PROVIGIL 200 MG ORAL TABLET 1/2 tab po q day MODA FINIL 56191547780 Active Renee Oconnor LPN Active FAMOTIDINE 20 MG ORAL TABLET by mouth twice a day 2017 FAMOTIDINE 17290931528 No Longer Active Mitch Urbina DO Active COLCRYS 0.6 MG ORAL TABLET 1 tab qid prn gout C OLCHICINE 16901846447 No Longer Active Mitch Urbina DO Active KEFLEX 500 MG ORAL CAPSULE 1 po qid CEPHALEXI N 25497746302 No Longer Active Mitch Urbina DO Active LOSARTAN POTASSIUM 100 MG ORAL TABLET 1 pill by mouth daily, for blood pressure LOSARTAN POTASSIUM 63580950514 Active Mitch Arnol Carlitos VELASQUEZ Active AMLODIPINE BESYLATE 5 MG ORAL TABLET 1 tablet by mouth daily 201 01/20/04 AMLODIPINE BESYLATE 83782900100 No Longer Active Joe fulton APRN Active MITIGARE 0.6 MG ORAL CAPSULE 2 capsules at onset of go ut pain, then take one capsule at 1 hour if symptoms persist. COLCHICINE 59 282902310 Active Mitch Urbina DO Active COUMADIN 1 MG ORAL TABLET 2 tabs orally daily with the 5mg tab to equal 7mg daily WARFARIN SODIUM 61152900655 Active Renee Oconnor LPN Active INVOKANA 100 MG ORAL TABLET 1 tablet orally daily CANAGLIFLOZIN 41330948534 Active Mitch Urbina DO Active MECLIZINE HCL 25 MG ORAL TABLET 1 po tid 3 days, then 1/2 ta b tid 3 days MECLIZINE HCL 67565475419 No Longer Active Corey SEGURA Active ALLOPURINOL 300 MG ORAL TABLET Take 1 tablet by mouth daily 2012 ALLOPURINOL 74408728320 No Longer Active Corey SEGURA Active CLONIDINE HCL 0.1 MG ORAL TABLET 1 po bid 7 days, then 1/2 t ab po bid 7 days CLONIDINE HCL 11598885383 No Longer Active Corey SEGURA Active COUMADIN 5 MG ORAL TABLET 1 tab PO daily WARFAR IN SODIUM 13883955907 Active Renee Oconnor LPN Active COUMADIN 4 MG ORAL TABLET 1 tablet daily WARFAR IN SODIUM 37502208292 No Longer Active Corey SEGURA Active POLYTRIM 72810-5.1 UNIT/ML-% OPHTHALMIC SOLUTION 1 rui p in affected eye every 3 hours while awake x 7 days POLYMYXIN B-TRIMETHOP RIM 36559774650 No Longer Active Corey SEGURA Active LOSARTAN POTASSIUM-HCTZ 100-12.5 MG ORAL TABLET 1 by m outh daily for high blood pressure LOSARTAN POTASSIUM-HCTZ 14852346692 No Longer A ctive Mitch Urbina DO Active LISINOPRIL-HYDROCHLOROTHIAZIDE 20-12.5 MG ORAL TABLET 1 tab by m outh daily LISINOPRIL-HYDROCHLOROTHIAZIDE 02726360371 No Longer Active Mitch Urbina DO Active LISINOPRIL 20 MG ORAL TABLET 1 tab po at HS LIS INOPRIL 64277192439 No Longer Active Mitch Urbina DO Active COUMADIN 5 MG ORAL TABLET 1 by mouth every other day 2 WARFARIN SODIUM 18769943928 No Longer Active Mitch Urbina DO Active COUMADIN 6 MG ORAL TABLET 1 by mouth every other day 2 WARFARIN SODIUM 59366904819 No Longer Active Mitch Urbina DO Active SIMVASTATIN 40 MG ORAL TABLET 1 tab daily at bedtime SIMVASTATIN 21626453805 Active Maria Rivas RN Active SIMVASTATIN 20 MG ORAL TABLET 1 tab daily at bedtime 2 SIMVASTATIN 01935598638 No Longer Active Mitch Urbina DO Active LOVENOX 100 MG/ML SUBCUTANEOUS SOLUTION One injection twice a da y ENOXAPARIN SODIUM 32634744904 No Longer Active Carmine Yusuf MD Active JANUVIA 50 MG ORAL TABLET Take one by mouth daily SITAGLIPTIN PHOSPHATE 74577478426 Active Renee Oconnor LPN Active JANUVIA 100 MG ORAL TABLET 1/2 by mouth every day 2011 SITAGLIPTIN PHOSPHATE 81464677344 No Longer Active Bijal Segal RN Acti ve METFORMIN HCL 500 MG ORAL TABLET 2 by mouth twice daily METFORMIN HCL 88247895459 No Longer Active Renee Oconnor LPN Active COLCRYS 0.6 MG ORAL TABLET 1 po q 6 hours prn gout pain COLCHICINE 88170558098 No Longer Active Camila Reese Active LISINOPRIL 5 MG ORAL TABLET 1 by mouth every day 11/17 LISINOPRIL 33625049938 No Longer Active Nguyen Ana Active KLOR-CON 20 MEQ ORAL PACKET Take one by mouth daily 09/10/08 POTASSIUM CHLORIDE 91731574286 No Longer Active Nguyen Ana Active FUROSEMIDE 40 MG ORAL TABLET 1 by mouth daily F UROSEMIDE 68621873981 No Longer Active Nguyen Ana Active PROVIGIL 100 MG ORAL TABLET Take one by mouth daily 08/20/04 MODAFINIL 21128019247 No Longer Active Mitch Urbina DO Active BACTRIM DS 800-160 MG ORAL TABLET 1 tab by mouth twice daily 201 10/19/09 TRIMETHOPRIM-SULFAMETHOXAZOLE 60387611336 No Longer Active Elian Hays MD Active ADULT ASPIRIN LOW STRENGTH 81 MG ORAL TABLET DISINTEGR ATING 1 by mouth every daily ASPIRIN 07637998160 Active Mitch Urbina DO Ac tive METOPROLOL TARTRATE 50 MG ORAL TABLET 1 by mouth twice daily METOPROLOL TARTRATE 30546819932 Active Maria Rivas RN Ac tive BACTRIM DS 800-160 MG ORAL TABLET 1 tab by mouth twice daily 201 10/19/09 BACTRIM DS 800-160 MG ORAL TABLET 981345 TRIMETHOPRIM-SULFAMETHOXAZOLE Inactive PROVIGIL 100 MG ORAL TABLET Take one by mouth daily 08/20/04 PROVIGIL 100 MG ORAL TABLET 111798 MODAFINIL Inactive FUROSEMIDE 40 MG ORAL TABLET 1 by mouth daily FUROSEMIDE 40 MG ORAL TABLET 140122 FUROSEMIDE Inactive KLOR-CON 20 MEQ ORAL PACKET Take one by mouth daily 09/10/08 KLOR- CON 20 MEQ ORAL PACKET 1147456 POTASSIUM CHLORIDE Inactive LISINOPRIL 5 MG ORAL TABLET 1 by mouth every day 11/17 LISINOPRIL 5 MG ORAL TABLET 360802 LISINOPRIL Inactive COLCRYS 0.6 MG ORAL TABLET 1 po q 6 hours prn gout pain COLCRYS 0.6 MG ORAL TABLET 631484 COLCHICINE Inactive JANUVIA 100 MG ORAL TABLET 1/2 by mouth every day 2011 JANUVIA 100 MG ORAL TABLET SITAGLIPTIN PHOSPHATE Inactive SIMVASTATIN 20 MG ORAL TABLET 1 tab daily at bedtime 2 SIMVASTATIN 20 MG ORAL TABLET 678169 SIMVASTATIN Inactive COUMADIN 6 MG ORAL TABLET 1 by mouth every other day 2 COUMADIN 6 MG ORAL TABLET 823159 WARFARIN SODIUM Inactive COUMADIN 5 MG ORAL TABLET 1 by mouth every other day 2 COUMADIN 5 MG ORAL TABLET 510585 WARFARIN SODIUM Inactive LISINOPRIL 20 MG ORAL TABLET 1 tab po at HS LISINOPRIL 20 MG ORAL TABLET 321325 LISINOPRIL Inactive LISINOPRIL-HYDROCHLOROTHIAZIDE 20-12.5 MG ORAL TABLET 1 tab by m outh daily LISINOPRIL-HYDROCHLOROTHIAZIDE 20-12.5 MG ORAL TABLET 616830 LISINOPRIL-HYDROCHLOROTHIAZIDE Inactive POLYTRIM 18223-6.1 UNIT/ML-% OPHTHALMIC SOLUTION 1 rui p in affected eye every 3 hours while awake x 7 days POLYTRIM 1000 0-0.1 UNIT/ML-% OPHTHALMIC SOLUTION 070627 POLYMYXIN B-TRIMETHOPRIM Inactive COUMADIN 4 MG ORAL TABLET 1 tablet daily COUMADIN 4 MG ORAL TABLET 374040 WARFARIN SODIUM Inactive CLONIDINE HCL 0.1 MG ORAL TABLET 1 po bid 7 days, then 1/2 t ab po bid 7 days CLONIDINE HCL 0.1 MG ORAL TABLET 262619 CLONIDIN E HCL Inactive ALLOPURINOL 300 MG ORAL TABLET Take 1 tablet by mouth daily 2012 ALLOPURINOL 300 MG ORAL TABLET 006759 ALLOPURINOL I nactive MECLIZINE HCL 25 MG ORAL TABLET 1 po tid 3 days, then 1/2 ta b tid 3 days MECLIZINE HCL 25 MG ORAL TABLET 640835 MECLIZINE HCL Inactive AMLODIPINE BESYLATE 5 MG ORAL TABLET 1 tablet by mouth daily 201 01/20/04 AMLODIPINE BESYLATE 5 MG ORAL TABLET 224681 AMLODIPINE BESYLATE Inactive KEFLEX 500 MG ORAL CAPSULE 1 po qid K EFLEX 500 MG ORAL CAPSULE 012600 CEPHALEXIN Inactive COLCRYS 0.6 MG ORAL TABLET 1 tab qid prn gout COLCRYS 0.6 MG ORAL TABLET 047881 COLCHICINE Inactive FAMOTIDINE 20 MG ORAL TABLET by mouth twice a day 2017 FAMOTIDINE 20 MG ORAL TABLET 503279 FAMOTIDINE Inactive GLIMEPIRIDE 2 MG ORAL TABLET 1 po BID GLIMEPIRIDE 2 MG ORAL TABLET 177330 GLIMEPIRIDE Inactive LOVENOX 100 MG/ML SUBCUTANEOUS SOLUTION One injection twice a da y LOVENOX 100 MG/ML SUBCUTANEOUS SOLUTION 054171 ENOXAPAR IN SODIUM Inactive PREDNISONE 20 MG ORAL TABLET 2 tabs daily for 3 days 1 tab d aily for 3 days PREDNISONE 20 MG ORAL TABLET 022808 PREDNISONE Inactive Advance Directives Directive Description Start [...] CBC, MICROALB/CREAT W/RATIO - Hematology mean corpuscular hemoglobin, RBC 26.6 pg 27. 0-31.2 mean corpuscular hemoglobin concentration, RBC 31.4 G/DL % 31.8-35.4 red blood cell distribution width 13.9 % 11 .6-14.8 platelet count 256 10^3/MM^3 10*3/mm3 544-525 4943/03/29 mean corpuscular volume, RBC 85 fL 80-97 hematocrit, blood 44.5 % 40.0-54.0 hemoglobin, blood [...] mg/dL Encounters Code Encounter Date Provider Facility CPT-29165 Level 3 Est. Patient 15:18:36 CDT Becky Se ll ANNIE [facility] CPT-52643 [id number] Vst-Est Level IV 10:06:35 CDT Stephy Urbina [facility] CPT-65127 [id number] Vst-Est Level IV 10:52:00 LINEN TECH Stephy Urbina [facility]-68713 Level 3 Est. Patient 18:25:53 CDT Mitch Ambrose Nona luis [facility] CPT-81963 Level 3 Est. Patient 19:43:34 CDT Mitch Ambrose Nona luis [facility] CPT-23985 Level 4 Est. Patient 09:30:18 CDT Mitch Ambrose Nona luis [facility] CPT-42673 Level 3 Est. Patient 15:10:[address] [facility] [place] CPT-37070 Level 3 Est. Patient 15:03:46 CDT [address] [facility] CPT-80639 Level 3 Est. Patient 14:21:06 CDT Mitch Ambrose Nona luis [facility] CPT-72967 Level 3 Est. Patient 14:52:06 CDT [address] [facility] CPT-60676 Level 3 Est. Patient 09:34:30 LINEN TECH Mitch luis [facility] CPT-10434 Level 3 Est. Patient 09:37:15 CDT Mitch luis [facility] CPT-67708 Level 3 Est. Patient 17:01:00 LINEN TECH Mitch luis [facility] CPT-04588 Level 3 Est. Patient 13:53:19 LINEN TECH Mitch luis [facility] CPT-86281 Level 3 Est. Patient 19:19:37 LINEN TECH Mitch luis [facility] CPT-91966 Level 3 Est. Patient 13:25:53 LINEN TECH Tavo toure MD [facility]-94881 Level 3 Est. Patient 18:17:28 CDT Mitch luis [facility] CPT-18822 Level 3 Est. Patient 15:22:57 CDT Mitch luis [facility] CPT-55278 Level 3 Est. Patient 18:21:50 CDT Mitch luis [facility] CPT-83006 Level 3 Est. Patient 18:20:38 CDT Mitch luis [facility] CPT-68584 Level 3 Est. Patient 15:37:55 CDT Mitch luis [facility] CPT-51475 Level 2 Est. Patient 15:54:44 CDT Carmine benton MD [facility]-86244 Level 3 Est. Patient 21:46:01 LINEN TECH Mitch luis [facility] CPT-01228 Level 3 Est. Patient 22:15:50 CDT Mitch luis [facility] CPT-84110 Level 3 Est. Patient 10:48:15 CDT Mitch luis [facility] CPT-67033 Level 3 Est. Patient 23:20:57 CDT Tavo toure MD [facility] CPT-43343 Level 3 Est. Patient 16:26:13 CDT Mitch luis [facility] Procedures Code Procedure Name Date Entry Date Standard Desc ription CPT-87931 Venipuncture Draw Fee 17:04:55 CDT CPT-94108 Venipuncture Draw Fee 17:20:50 CDT CPT-92077 Venipuncture Draw Fee 18:00:48 CDT CPT-58303 Venipuncture Draw Fee 14:56:20 CDT CPT-JTINJ Asp/Joint Injection 18:47:02 CDT CPT-96192 Venipuncture Draw Fee 09:26:17 CDT CPT-80525 PT/INR - LAB USE ONLY 13:32:49 LINEN TECH CPT-82570 Venipuncture Draw Fee 13:32:49 LINEN TECH CPT-09644 PT/INR - LAB USE ONLY 10:34:49 LINEN TECH CPT-18518 Venipuncture Draw Fee 10:34:48 LINEN TECH CPT-53043 PT/INR - LAB USE ONLY 09:22:03 LINEN TECH CPT-77389 Venipuncture Draw Fee 09:22:02 LINEN TECH CPT-02885 Hemoccult IFOBT - LAB USE ONLY 10:27:22 CDT CPT-26535 Venipuncture Draw Fee 08:27:08 CDT CPT-94278 Liver Profile - LAB USE ONLY 08:27:07 CDT 2 CPT-86526 Microalbumin - LAB USE ONLY 08:27:07 CDT 20 25/05/09 CPT-48842 PT/INR - LAB USE ONLY 08:27:07 CDT CPT-20079 HGBA1C - LAB USE ONLY 08:27:07 CDT CPT-19895 CBC - LAB USE ONLY 08:27:07 CDT CPT-18476 Venipuncture Draw Fee 11:09:14 CDT CPT-07601 Venipuncture Draw Fee 08:32:21 LINEN TECH CPT-97604 Venipuncture Draw Fee 09:38:56 LINEN TECH CPT-13750 No Charge Offi Visit 21:36:07 CDT 1 CPT-65273 Venipuncture Draw Fee 10:13:28 LINEN TECH CPT-05958 Venipuncture Draw Fee 08:31:11 CDT CPT-11790 Aspir/Inject Med Joint 18:17:28 CDT CPT-99605 Venipuncture Draw Fee 10:13:30 CDT CPT-99352 Venipuncture Draw Fee 08:31:43 LINEN TECH CPT-JTINJ Joint Injection 18:34:50 CDT CPT-60214 Knee 3V 12:25:09 CDT CPT-74495 Venipuncture Draw Fee 12:15:57 CDT CPT-060 Medical Surveillance Exam 21:31:43 CDT 2011 CPT-16080 Venipuncture Draw Fee 08:32:05 LINEN TECH CPT-OV Office Visit 18:19:06 CDT
--- OUTSIDE RECORDS SUMMARY | 2020-01-18 13:46 | XMS REPORT | Clinical Summary ---
Author Author Admin, Mitch Leon Organization [facility] [employer] Address Unknown Phone Unavailable Allergies, Adverse Reactions, [...] week, then once daily FLUTICASONE OH OPIONATE 76080762220 Active Becky Sell MEDIA AID Active PREDNISONE 20 MG ORAL TABLET 2 tabs daily for 3 days 1 tab d aily for 3 days PREDNISONE 62050967589 No Longer Active Becky Sell MEDIA AID Active MINOXIDIL 2.5 MG ORAL TABLET 1 tablet twice daily for high b lood pressure MINOXIDIL 68313474124 Active Mitch Urbina DO Ac tive METFORMIN HCL ER 500 MG ORAL TABLET EXTENDED RELEASE 2 4 HOUR 2 tablets by mouth twice daily METFORMIN HCL 66810661643 Active Mitch Urbina DO Active GLIMEPIRIDE 4 MG ORAL TABLET 1 tablet by mouth twice daily f or diabetes GLIMEPIRIDE 23813100049 Active Mitch Urbina DO Active GLIMEPIRIDE 2 MG ORAL TABLET 1 po BID GLIMEPI RIDE 07833598451 No Longer Active Mitch Urbina DO Active AMLODIPINE BESYLATE 5 MG ORAL TABLET 1 tablet by mouth daily AMLODIPINE BESYLATE 73822673495 Active Mitch Urbina DO Active PROVIGIL 200 MG ORAL TABLET 1/2 tab po q day MODA FINIL 07117078184 Active Renee Oconnor LPN Active FAMOTIDINE 20 MG ORAL TABLET by mouth twice a day 2017 FAMOTIDINE 03896105835 No Longer Active Mitch Urbina DO Active COLCRYS 0.6 MG ORAL TABLET 1 tab qid prn gout C OLCHICINE 68027284605 No Longer Active Mitch Urbina DO Active KEFLEX 500 MG ORAL CAPSULE 1 po qid CEPHALEXI N 10609979277 No Longer Active Mitch Urbina DO Active LOSARTAN POTASSIUM 100 MG ORAL TABLET 1 pill by mouth daily, for blood pressure LOSARTAN POTASSIUM 63691105496 Active Mitch Arnol Carlitos VELASQUEZ Active AMLODIPINE BESYLATE 5 MG ORAL TABLET 1 tablet by mouth daily 201 01/20/04 AMLODIPINE BESYLATE 36962176805 No Longer Active Joe fulton APRN Active MITIGARE 0.6 MG ORAL CAPSULE 2 capsules at onset of go ut pain, then take one capsule at 1 hour if symptoms persist. COLCHICINE 59 111339459 Active Mitch Urbina DO Active COUMADIN 1 MG ORAL TABLET 2 tabs orally daily with the 5mg tab to equal 7mg daily WARFARIN SODIUM 00490014170 Active Renee Oconnor LPN Active INVOKANA 100 MG ORAL TABLET 1 tablet orally daily CANAGLIFLOZIN 84782771619 Active Mitch Urbina DO Active MECLIZINE HCL 25 MG ORAL TABLET 1 po tid 3 days, then 1/2 ta b tid 3 days MECLIZINE HCL 69073700011 No Longer Active Corey SEGURA Active ALLOPURINOL 300 MG ORAL TABLET Take 1 tablet by mouth daily 2012 ALLOPURINOL 49518772821 No Longer Active Corey SEGURA Active CLONIDINE HCL 0.1 MG ORAL TABLET 1 po bid 7 days, then 1/2 t ab po bid 7 days CLONIDINE HCL 63953953224 No Longer Active Corey SEGURA Active COUMADIN 5 MG ORAL TABLET 1 tab PO daily WARFAR IN SODIUM 40501253891 Active Renee Oconnor LPN Active COUMADIN 4 MG ORAL TABLET 1 tablet daily WARFAR IN SODIUM 88178396796 No Longer Active Corey SEGURA Active POLYTRIM 21926-7.1 UNIT/ML-% OPHTHALMIC SOLUTION 1 rui p in affected eye every 3 hours while awake x 7 days POLYMYXIN B-TRIMETHOP RIM 31500693537 No Longer Active Corey SEGURA Active LOSARTAN POTASSIUM-HCTZ 100-12.5 MG ORAL TABLET 1 by m outh daily for high blood pressure LOSARTAN POTASSIUM-HCTZ 68176696885 No Longer A ctive Mitch Urbina DO Active LISINOPRIL-HYDROCHLOROTHIAZIDE 20-12.5 MG ORAL TABLET 1 tab by m outh daily LISINOPRIL-HYDROCHLOROTHIAZIDE 29674316703 No Longer Active Mitch Urbina DO Active LISINOPRIL 20 MG ORAL TABLET 1 tab po at HS LIS INOPRIL 92720240341 No Longer Active Mitch Urbina DO Active COUMADIN 5 MG ORAL TABLET 1 by mouth every other day 2 WARFARIN SODIUM 43584294649 No Longer Active Mitch Urbina DO Active COUMADIN 6 MG ORAL TABLET 1 by mouth every other day 2 WARFARIN SODIUM 23982039367 No Longer Active Mitch Urbina DO Active SIMVASTATIN 40 MG ORAL TABLET 1 tab daily at bedtime SIMVASTATIN 16606497702 Active Maria Rivas RN Active SIMVASTATIN 20 MG ORAL TABLET 1 tab daily at bedtime 2 SIMVASTATIN 34920022078 No Longer Active Mitch Urbina DO Active LOVENOX 100 MG/ML SUBCUTANEOUS SOLUTION One injection twice a da y ENOXAPARIN SODIUM 99880988603 No Longer Active Carmine Yusuf MD Active JANUVIA 50 MG ORAL TABLET Take one by mouth daily SITAGLIPTIN PHOSPHATE 22148786488 Active Renee Oconnor LPN Active JANUVIA 100 MG ORAL TABLET 1/2 by mouth every day 2011 SITAGLIPTIN PHOSPHATE 11021895053 No Longer Active Bijal Segal RN Acti ve METFORMIN HCL 500 MG ORAL TABLET 2 by mouth twice daily METFORMIN HCL 19525332500 No Longer Active Renee Oconnor LPN Active COLCRYS 0.6 MG ORAL TABLET 1 po q 6 hours prn gout pain COLCHICINE 60843546770 No Longer Active Camila Reese Active LISINOPRIL 5 MG ORAL TABLET 1 by mouth every day 11/17 LISINOPRIL 43714001331 No Longer Active Nguyen Ana Active KLOR-CON 20 MEQ ORAL PACKET Take one by mouth daily 09/10/08 POTASSIUM CHLORIDE 00086794488 No Longer Active Nguyen Ana Active FUROSEMIDE 40 MG ORAL TABLET 1 by mouth daily F UROSEMIDE 21501334236 No Longer Active Nguyen Ana Active PROVIGIL 100 MG ORAL TABLET Take one by mouth daily 08/20/04 MODAFINIL 75474413236 No Longer Active Mitch Urbina DO Active BACTRIM DS 800-160 MG ORAL TABLET 1 tab by mouth twice daily 201 10/19/09 TRIMETHOPRIM-SULFAMETHOXAZOLE 83492753115 No Longer Active Elian Hays MD Active ADULT ASPIRIN LOW STRENGTH 81 MG ORAL TABLET DISINTEGR ATING 1 by mouth every daily ASPIRIN 96698637927 Active Mitch Urbina DO Ac tive METOPROLOL TARTRATE 50 MG ORAL TABLET 1 by mouth twice daily METOPROLOL TARTRATE 78915002692 Active Maria Rivas RN Ac tive BACTRIM DS 800-160 MG ORAL TABLET 1 tab by mouth twice daily 201 10/19/09 BACTRIM DS 800-160 MG ORAL TABLET 641827 TRIMETHOPRIM-SULFAMETHOXAZOLE Inactive PROVIGIL 100 MG ORAL TABLET Take one by mouth daily 08/20/04 PROVIGIL 100 MG ORAL TABLET 881711 MODAFINIL Inactive FUROSEMIDE 40 MG ORAL TABLET 1 by mouth daily FUROSEMIDE 40 MG ORAL TABLET 060107 FUROSEMIDE Inactive KLOR-CON 20 MEQ ORAL PACKET Take one by mouth daily 09/10/08 KLOR- CON 20 MEQ ORAL PACKET 1891710 POTASSIUM CHLORIDE Inactive LISINOPRIL 5 MG ORAL TABLET 1 by mouth every day 11/17 LISINOPRIL 5 MG ORAL TABLET 168659 LISINOPRIL Inactive COLCRYS 0.6 MG ORAL TABLET 1 po q 6 hours prn gout pain COLCRYS 0.6 MG ORAL TABLET 571211 COLCHICINE Inactive JANUVIA 100 MG ORAL TABLET 1/2 by mouth every day 2011 JANUVIA 100 MG ORAL TABLET SITAGLIPTIN PHOSPHATE Inactive SIMVASTATIN 20 MG ORAL TABLET 1 tab daily at bedtime 2 SIMVASTATIN 20 MG ORAL TABLET 554939 SIMVASTATIN Inactive COUMADIN 6 MG ORAL TABLET 1 by mouth every other day 2 COUMADIN 6 MG ORAL TABLET 595299 WARFARIN SODIUM Inactive COUMADIN 5 MG ORAL TABLET 1 by mouth every other day 2 COUMADIN 5 MG ORAL TABLET 447162 WARFARIN SODIUM Inactive LISINOPRIL 20 MG ORAL TABLET 1 tab po at HS LISINOPRIL 20 MG ORAL TABLET 074828 LISINOPRIL Inactive LISINOPRIL-HYDROCHLOROTHIAZIDE 20-12.5 MG ORAL TABLET 1 tab by m outh daily LISINOPRIL-HYDROCHLOROTHIAZIDE 20-12.5 MG ORAL TABLET 517511 LISINOPRIL-HYDROCHLOROTHIAZIDE Inactive POLYTRIM 86008-0.1 UNIT/ML-% OPHTHALMIC SOLUTION 1 rui p in affected eye every 3 hours while awake x 7 days POLYTRIM 1000 0-0.1 UNIT/ML-% OPHTHALMIC SOLUTION 984006 POLYMYXIN B-TRIMETHOPRIM Inactive COUMADIN 4 MG ORAL TABLET 1 tablet daily COUMADIN 4 MG ORAL TABLET 662490 WARFARIN SODIUM Inactive CLONIDINE HCL 0.1 MG ORAL TABLET 1 po bid 7 days, then 1/2 t ab po bid 7 days CLONIDINE HCL 0.1 MG ORAL TABLET 261975 CLONIDIN E HCL Inactive ALLOPURINOL 300 MG ORAL TABLET Take 1 tablet by mouth daily 2012 ALLOPURINOL 300 MG ORAL TABLET 010610 ALLOPURINOL I nactive MECLIZINE HCL 25 MG ORAL TABLET 1 po tid 3 days, then 1/2 ta b tid 3 days MECLIZINE HCL 25 MG ORAL TABLET 506820 MECLIZINE HCL Inactive AMLODIPINE BESYLATE 5 MG ORAL TABLET 1 tablet by mouth daily 201 01/20/04 AMLODIPINE BESYLATE 5 MG ORAL TABLET 350720 AMLODIPINE BESYLATE Inactive KEFLEX 500 MG ORAL CAPSULE 1 po qid K EFLEX 500 MG ORAL CAPSULE 982534 CEPHALEXIN Inactive COLCRYS 0.6 MG ORAL TABLET 1 tab qid prn gout COLCRYS 0.6 MG ORAL TABLET 589448 COLCHICINE Inactive FAMOTIDINE 20 MG ORAL TABLET by mouth twice a day 2017 FAMOTIDINE 20 MG ORAL TABLET 850207 FAMOTIDINE Inactive GLIMEPIRIDE 2 MG ORAL TABLET 1 po BID GLIMEPIRIDE 2 MG ORAL TABLET 897600 GLIMEPIRIDE Inactive LOVENOX 100 MG/ML SUBCUTANEOUS SOLUTION One injection twice a da y LOVENOX 100 MG/ML SUBCUTANEOUS SOLUTION 955187 ENOXAPAR IN SODIUM Inactive PREDNISONE 20 MG ORAL TABLET 2 tabs daily for 3 days 1 tab d aily for 3 days PREDNISONE 20 MG ORAL TABLET 911654 PREDNISONE Inactive Advance Directives Directive Description Start [...] mg/dL Encounters Code Encounter Date Provider Facility CPT-93826 Level 3 Est. Patient 15:18:36 CDT Becky Se ll ANNIE [facility] CPT-17506 [id number] Vst-Est Level IV 10:06:35 CDT Stephy Urbina [facility] CPT-17157 [id number] Vst-Est Level IV 10:52:00 BILINGUAL TRAINER Stephy Urbina [facility]-06811 Level 3 Est. Patient 18:25:53 CDT Mitch Ambrose Nona luis [facility] CPT-86025 Level 3 Est. Patient 19:43:34 CDT Mitch Ambrose Nona luis [facility] CPT-44359 Level 4 Est. Patient 09:30:18 CDT Mitch Ambrose Nona luis [facility] CPT-32991 Level 3 Est. Patient 15:10:14 CDT Joe kamara Formerly named [facility] CPT-32426 Level 3 Est. Patient 15:03:46 CDT Joe Gomez courtangela Formerly named [facility] CPT-06790 Level 3 Est. Patient 14:21:06 CDT Mitch Ambrose oNna luis [facility] CPT-49385 Level 3 Est. Patient 14:52:06 CDT Joe Gomez courtangela Formerly named [facility] CPT-91057 Level 3 Est. Patient 09:34:30 BILINGUAL TRAINER Mitch luis [facility] CPT-63707 Level 3 Est. Patient 09:37:15 CDT Mitch luis [facility] CPT-69127 Level 3 Est. Patient 17:01:00 BILINGUAL TRAINER Mitch luis [facility] CPT-37540 Level 3 Est. Patient 13:53:19 BILINGUAL TRAINER Mitch luis [facility] CPT-96063 Level 3 Est. Patient 19:19:37 BILINGUAL TRAINER Mitch luis [facility] CPT-07327 Level 3 Est. Patient 13:25:53 BILINGUAL TRAINER Tavo toure MD [facility]-03106 Level 3 Est. Patient 18:17:28 CDT Mitch luis [facility] CPT-20329 Level 3 Est. Patient 15:22:57 CDT Mitch luis [facility] CPT-96978 Level 3 Est. Patient 18:21:50 CDT Mitch luis [facility] CPT-85675 Level 3 Est. Patient 18:20:38 CDT Mitch luis [facility] CPT-07775 Level 3 Est. Patient 15:37:55 CDT Mitch luis [facility] CPT-97391 Level 2 Est. Patient 15:54:44 CDT Carmine benton MD [facility]-25837 Level 3 Est. Patient 21:46:01 BILINGUAL TRAINER Mitch luis [facility] CPT-85595 Level 3 Est. Patient 22:15:50 CDT Mitch luis [facility] CPT-16824 Level 3 Est. Patient 10:48:15 CDT Mitch luis [facility] CPT-37346 Level 3 Est. Patient 23:20:57 CDT Tavo toure MD [facility] CPT-37845 Level 3 Est. Patient 16:26:13 CDT Mitch luis [facility] Procedures Code Procedure Name Date Entry Date Standard Desc ription CPT-24814 Venipuncture Draw Fee 17:04:55 CDT CPT-26776 Venipuncture Draw Fee 17:20:50 CDT CPT-41839 Venipuncture Draw Fee 18:00:48 CDT CPT-38573 Venipuncture Draw Fee 14:56:20 CDT CPT-JTINJ Asp/Joint Injection 18:47:02 CDT CPT-78729 Venipuncture Draw Fee 09:26:17 CDT CPT-99034 PT/INR - LAB USE ONLY 13:32:49 BILINGUAL TRAINER CPT-68599 Venipuncture Draw Fee 13:32:49 BILINGUAL TRAINER CPT-93342 PT/INR - LAB USE ONLY 10:34:49 BILINGUAL TRAINER CPT-89106 Venipuncture Draw Fee 10:34:48 BILINGUAL TRAINER CPT-29305 PT/INR - LAB USE ONLY 09:22:03 BILINGUAL TRAINER CPT-15216 Venipuncture Draw Fee 09:22:02 BILINGUAL TRAINER CPT-89563 Hemoccult IFOBT - LAB USE ONLY 10:27:22 CDT CPT-37305 Venipuncture Draw Fee 08:27:08 CDT CPT-53436 Liver Profile - LAB USE ONLY 08:27:07 CDT 2 CPT-00006 Microalbumin - LAB USE ONLY 08:27:07 CDT 20 25/05/09 CPT-68971 PT/INR - LAB USE ONLY 08:27:07 CDT CPT-60301 HGBA1C - LAB USE ONLY 08:27:07 CDT CPT-31733 CBC - LAB USE ONLY 08:27:07 CDT CPT-41395 Venipuncture Draw Fee 11:09:14 CDT CPT-08086 Venipuncture Draw Fee 08:32:21 BILINGUAL TRAINER CPT-50052 Venipuncture Draw Fee 09:38:56 BILINGUAL TRAINER CPT-70360 No Charge Offi Visit 21:36:07 CDT 1 CPT-86468 Venipuncture Draw Fee 10:13:28 BILINGUAL TRAINER CPT-38313 Venipuncture Draw Fee 08:31:11 CDT CPT-44271 Aspir/Inject Med Joint 18:17:28 CDT CPT-04583 Venipuncture Draw Fee 10:13:30 CDT CPT-93502 Venipuncture Draw Fee 08:31:43 BILINGUAL TRAINER CPT-JTINJ Joint Injection 18:34:50 CDT CPT-78525 Knee 3V 12:25:09 CDT CPT-08127 Venipuncture Draw Fee 12:15:57 CDT CPT-060 Medical Surveillance Exam 21:31:43 CDT 2011 CPT-99399 Venipuncture Draw Fee 08:32:05 BILINGUAL TRAINER CPT-OV Office Visit 18:19:06 CDT
--- OUTSIDE RECORDS SUMMARY | 2020-01-18 13:47 | XMS REPORT | Clinical Summary ---
[...] cardiovascular system GOUT, RIGHT WRIST 274.9 Resolved iMtch Ambrose Carlitos DO Gout, unspecified BRUISE 924.9 [...] Body Mass Index 32.0-32.9 Adult Active Br karenponce Urbina DO Body Mass Index 32.0-32.9, adult [...] week, then once daily FLUTICASONE CA OPIONATE 47644581154 Active Becky Sell SURGICAL INSTRUMENT MAKER Active PREDNISONE 20 MG ORAL TABLET 2 tabs daily for 3 days 1 tab d aily for 3 days PREDNISONE 15332655030 No Longer Active Becky Sell SURGICAL INSTRUMENT MAKER Active MINOXIDIL 2.5 MG ORAL TABLET 1 tablet twice daily for high b lood pressure MINOXIDIL 77514624844 Active Mitch Urbina DO Ac tive METFORMIN HCL ER 500 MG ORAL TABLET EXTENDED RELEASE 2 4 HOUR 2 tablets by mouth twice daily METFORMIN HCL 11226800660 Active Mitch Urbian DO Active GLIMEPIRIDE 4 MG ORAL TABLET 1 tablet by mouth twice daily f or diabetes GLIMEPIRIDE 98455941443 Active Mitch Urbina DO Active GLIMEPIRIDE 2 MG ORAL TABLET 1 po BID GLIMEPI RIDE 38225479854 No Longer Active Mitch Urbina DO Active AMLODIPINE BESYLATE 5 MG ORAL TABLET 1 tablet by mouth daily AMLODIPINE BESYLATE 34657044830 Active Mitch Urbina DO Active PROVIGIL 200 MG ORAL TABLET 1/2 tab po q day MODA FINIL 97129286789 Active Renee Oconnor LPN Active FAMOTIDINE 20 MG ORAL TABLET by mouth twice a day 2017 FAMOTIDINE 48038082271 No Longer Active Mitch Urbina DO Active COLCRYS 0.6 MG ORAL TABLET 1 tab qid prn gout C OLCHICINE 79511809274 No Longer Active Mitch Urbina DO Active KEFLEX 500 MG ORAL CAPSULE 1 po qid CEPHALEXI N 13713262409 No Longer Active Mitch Urbina DO Active LOSARTAN POTASSIUM 100 MG ORAL TABLET 1 pill by mouth daily, for blood pressure LOSARTAN POTASSIUM 80681147166 Active Mitch Urbina DO Active AMLODIPINE BESYLATE 5 MG ORAL TABLET 1 tablet by mouth daily 201 01/20/04 AMLODIPINE BESYLATE 24942842368 No Longer Active Joe fulton APRN Active MITIGARE 0.6 MG ORAL CAPSULE 2 capsules at onset of go ut pain, then take one capsule at 1 hour if symptoms persist. COLCHICINE 59 694031720 Active Mithc Urbina DO Active COUMADIN 1 MG ORAL TABLET 2 tabs orally daily with the 5mg tab to equal 7mg daily WARFARIN SODIUM 64211407418 Active Renee Oconnor LPN Active INVOKANA 100 MG ORAL TABLET 1 tablet orally daily CANAGLIFLOZIN 05718096932 Active Mitch Urbina DO Active MECLIZINE HCL 25 MG ORAL TABLET 1 po tid 3 days, then 1/2 ta b tid 3 days MECLIZINE HCL 77259562724 No Longer Active Corey SEGURA Active ALLOPURINOL 300 MG ORAL TABLET Take 1 tablet by mouth daily 2012 ALLOPURINOL 28676981074 No Longer Active Corey SEGURA Active CLONIDINE HCL 0.1 MG ORAL TABLET 1 po bid 7 days, then 1/2 t ab po bid 7 days CLONIDINE HCL 14939307580 No Longer Active Croey SEGURA Active COUMADIN 5 MG ORAL TABLET 1 tab PO daily WARFAR IN SODIUM 14987017283 Active Renee Oconnor LPN Active COUMADIN 4 MG ORAL TABLET 1 tablet daily WARFAR IN SODIUM 58732316339 No Longer Active Corey SEGURA Active POLYTRIM 07773-8.1 UNIT/ML-% OPHTHALMIC SOLUTION 1 rui p in affected eye every 3 hours while awake x 7 days POLYMYXIN B-TRIMETHOP RIM 88776179240 No Longer Active Corey SEGURA Active LOSARTAN POTASSIUM-HCTZ 100-12.5 MG ORAL TABLET 1 by m outh daily for high blood pressure LOSARTAN POTASSIUM-HCTZ 95713171370 No Longer A ctive Mitch Urbina DO Active LISINOPRIL-HYDROCHLOROTHIAZIDE 20-12.5 MG ORAL TABLET 1 tab by m outh daily LISINOPRIL-HYDROCHLOROTHIAZIDE 83890851460 No Longer Active Mitch Urbina DO Active LISINOPRIL 20 MG ORAL TABLET 1 tab po at HS LIS INOPRIL 64653297066 No Longer Active Mitch Urbina DO Active COUMADIN 5 MG ORAL TABLET 1 by mouth every other day 2 WARFARIN SODIUM 82304857253 No Longer Active Mitch Urbina DO Active COUMADIN 6 MG ORAL TABLET 1 by mouth every other day 2 WARFARIN SODIUM 46390559674 No Longer Active Mitch Urbina DO Active SIMVASTATIN 40 MG ORAL TABLET 1 tab daily at bedtime SIMVASTATIN 09565326318 Active Maria Rivas RN Active SIMVASTATIN 20 MG ORAL TABLET 1 tab daily at bedtime 2 SIMVASTATIN 25570329492 No Longer Active Mitch Urbina DO Active LOVENOX 100 MG/ML SUBCUTANEOUS SOLUTION One injection twice a da y ENOXAPARIN SODIUM 53706758815 No Longer Active Carmine Yusuf MD Active JANUVIA 50 MG ORAL TABLET Take one by mouth daily SITAGLIPTIN PHOSPHATE 48693706106 Active Renee Oconnor LPN Active JANUVIA 100 MG ORAL TABLET 1/2 by mouth every day 2011 SITAGLIPTIN PHOSPHATE 76493193221 No Longer Active Bijal Segal RN Acti ve METFORMIN HCL 500 MG ORAL TABLET 2 by mouth twice daily METFORMIN HCL 78727960465 No Longer Active Renee Oconnor LPN Active COLCRYS 0.6 MG ORAL TABLET 1 po q 6 hours prn gout pain COLCHICINE 27620602027 No Longer Active Camila Reese Active LISINOPRIL 5 MG ORAL TABLET 1 by mouth every day 11/17 LISINOPRIL 68779764892 No Longer Active Nguyen Ana Active KLOR-CON 20 MEQ ORAL PACKET Take one by mouth daily 09/10/08 POTASSIUM CHLORIDE 08847453908 No Longer Active Nguyen Ana Active FUROSEMIDE 40 MG ORAL TABLET 1 by mouth daily F UROSEMIDE 33036986783 No Longer Active Nguyen Ana Active PROVIGIL 100 MG ORAL TABLET Take one by mouth daily 08/20/04 MODAFINIL 98297272089 No Longer Active Mitch Urbina DO Active BACTRIM DS 800-160 MG ORAL TABLET 1 tab by mouth twice daily 201 10/19/09 TRIMETHOPRIM-SULFAMETHOXAZOLE 75723803678 No Longer Active Elian Hays MD Active ADULT ASPIRIN LOW STRENGTH 81 MG ORAL TABLET DISINTEGR ATING 1 by mouth every daily ASPIRIN 78304448110 Active Mitch Urbina DO Ac tive METOPROLOL TARTRATE 50 MG ORAL TABLET 1 by mouth twice daily METOPROLOL TARTRATE 50005692907 Active Maria Rivas RN Ac tive BACTRIM DS 800-160 MG ORAL TABLET 1 tab by mouth twice daily 201 10/19/09 BACTRIM DS 800-160 MG ORAL TABLET 392840 TRIMETHOPRIM-SULFAMETHOXAZOLE Inactive PROVIGIL 100 MG ORAL TABLET Take one by mouth daily 08/20/04 PROVIGIL 100 MG ORAL TABLET 186725 MODAFINIL Inactive FUROSEMIDE 40 MG ORAL TABLET 1 by mouth daily FUROSEMIDE 40 MG ORAL TABLET 647538 FUROSEMIDE Inactive KLOR-CON 20 MEQ ORAL PACKET Take one by mouth daily 09/10/08 KLOR- CON 20 MEQ ORAL PACKET 1460022 POTASSIUM CHLORIDE Inactive LISINOPRIL 5 MG ORAL TABLET 1 by mouth every day 11/17 LISINOPRIL 5 MG ORAL TABLET 509942 LISINOPRIL Inactive COLCRYS 0.6 MG ORAL TABLET 1 po q 6 hours prn gout pain COLCRYS 0.6 MG ORAL TABLET 088126 COLCHICINE Inactive JANUVIA 100 MG ORAL TABLET 1/2 by mouth every day 2011 JANUVIA 100 MG ORAL TABLET SITAGLIPTIN PHOSPHATE Inactive SIMVASTATIN 20 MG ORAL TABLET 1 tab daily at bedtime 2 SIMVASTATIN 20 MG ORAL TABLET 939336 SIMVASTATIN Inactive COUMADIN 6 MG ORAL TABLET 1 by mouth every other day 2 COUMADIN 6 MG ORAL TABLET 623101 WARFARIN SODIUM Inactive COUMADIN 5 MG ORAL TABLET 1 by mouth every other day 2 COUMADIN 5 MG ORAL TABLET 504722 WARFARIN SODIUM Inactive LISINOPRIL 20 MG ORAL TABLET 1 tab po at HS LISINOPRIL 20 MG ORAL TABLET 523318 LISINOPRIL Inactive LISINOPRIL-HYDROCHLOROTHIAZIDE 20-12.5 MG ORAL TABLET 1 tab by m outh daily LISINOPRIL-HYDROCHLOROTHIAZIDE 20-12.5 MG ORAL TABLET 941784 LISINOPRIL-HYDROCHLOROTHIAZIDE Inactive POLYTRIM 75622-9.1 UNIT/ML-% OPHTHALMIC SOLUTION 1 rui p in affected eye every 3 hours while awake x 7 days POLYTRIM 1000 0-0.1 UNIT/ML-% OPHTHALMIC SOLUTION 566297 POLYMYXIN B-TRIMETHOPRIM Inactive COUMADIN 4 MG ORAL TABLET 1 tablet daily COUMADIN 4 MG ORAL TABLET 554071 WARFARIN SODIUM Inactive CLONIDINE HCL 0.1 MG ORAL TABLET 1 po bid 7 days, then 1/2 t ab po bid 7 days CLONIDINE HCL 0.1 MG ORAL TABLET 371362 CLONIDIN E HCL Inactive ALLOPURINOL 300 MG ORAL TABLET Take 1 tablet by mouth daily 2012 ALLOPURINOL 300 MG ORAL TABLET 056972 ALLOPURINOL I nactive MECLIZINE HCL 25 MG ORAL TABLET 1 po tid 3 days, then 1/2 ta b tid 3 days MECLIZINE HCL 25 MG ORAL TABLET 426873 MECLIZINE HCL Inactive AMLODIPINE BESYLATE 5 MG ORAL TABLET 1 tablet by mouth daily 201 01/20/04 AMLODIPINE BESYLATE 5 MG ORAL TABLET 112499 AMLODIPINE BESYLATE Inactive KEFLEX 500 MG ORAL CAPSULE 1 po qid K EFLEX 500 MG ORAL CAPSULE 064862 CEPHALEXIN Inactive COLCRYS 0.6 MG ORAL TABLET 1 tab qid prn gout COLCRYS 0.6 MG ORAL TABLET 139211 COLCHICINE Inactive FAMOTIDINE 20 MG ORAL TABLET by mouth twice a day 2017 FAMOTIDINE 20 MG ORAL TABLET 232641 FAMOTIDINE Inactive GLIMEPIRIDE 2 MG ORAL TABLET 1 po BID GLIMEPIRIDE 2 MG ORAL TABLET 345997 GLIMEPIRIDE Inactive LOVENOX 100 MG/ML SUBCUTANEOUS SOLUTION One injection twice a da y LOVENOX 100 MG/ML SUBCUTANEOUS SOLUTION 283999 ENOXAPAR IN SODIUM Inactive PREDNISONE 20 MG ORAL TABLET 2 tabs daily for 3 days 1 tab d aily for 3 days PREDNISONE 20 MG ORAL TABLET 923479 PREDNISONE Inactive Advance Directives Directive Description Start [...] mg/dL Encounters Code Encounter Date Provider Facility CPT-13135 Level 3 Est. Patient 15:18:36 CDT Becky Se ll SURGICAL INSTRUMENT MAKER [facility] CPT-78839 [id number] Vst-Est Level IV 10:06:35 CDT Stephy Urbina [facility] CPT-32134 [id number] Vst-Est Level IV 10:52:00 RESTAURANT FLOOR MANAGER Stephy Urbina [facility] CPT-09664 Level 3 Est. Patient 18:25:53 CDT Mitch Arnol luis [facility] CPT-79998 Level 3 Est. Patient 19:43:34 CDT Mitch Arnol luis [facility] CPT-29484 Level 4 Est. Patient 09:30:18 CDT Mitch Arnol luis [facility] CPT-35754 Level 3 Est. Patient 15:10:14 CDT Joe kamara [facility] CPT-09111 Level 3 Est. Patient 15:03:46 CDT Joe kamara [facility] CPT-55805 Level 3 Est. Patient 14:21:06 CDT Mitch Arnol luis [facility] CPT-82519 Level 3 Est. Patient 14:52:06 CDT Joe kamara [facility] CPT-30328 Level 3 Est. Patient 09:34:30 RESTAURANT FLOOR MANAGER Mitch Ambrose Nona luis [facility] CPT-72714 Level 3 Est. Patient 09:37:15 CDT Mitch Castellano janelle [facility] CPT-99732 Level 3 Est. Patient 17:01:00 RESTAURANT FLOOR MANAGER Mitch luis [facility] CPT-16253 Level 3 Est. Patient 13:53:19 RESTAURANT FLOOR MANAGER Mitch luis [facility] CPT-94695 Level 3 Est. Patient 19:19:37 RESTAURANT FLOOR MANAGER Mitch luis [facility] CPT-60691 Level 3 Est. Patient 13:25:53 RESTAURANT FLOOR MANAGER Tavo toure MD [facility] CPT-13108 Level 3 Est. Patient 18:17:28 CDT Mitch luis [facility] CPT-68257 Level 3 Est. Patient 15:22:57 CDT Mitch luis [facility] CPT-56545 Level 3 Est. Patient 18:21:50 CDT Mitch luis [facility] CPT-14807 Level 3 Est. Patient 18:20:38 CDT Mitch luis [facility] CPT-81464 Level 3 Est. Patient 15:37:55 CDT Mitch luis [facility] CPT-39837 Level 2 Est. Patient 15:54:44 CDT Carmine benton MD [facility] CPT-29122 Level 3 Est. Patient 21:46:01 RESTAURANT FLOOR MANAGER Mitch luis [facility] CPT-22643 Level 3 Est. Patient 22:15:50 CDT Mitch luis [facility] CPT-79734 Level 3 Est. Patient 10:48:15 CDT Mitch luis [facility] CPT-51311 Level 3 Est. Patient 23:20:57 CDT Tavo toure MD [facility] CPT-72272 Level 3 Est. Patient 16:26:13 CDT Mitch luis [facility] Procedures Code Procedure Name Date Entry Date Standard Desc ription CPT-48618 Venipuncture Draw Fee 17:04:55 CDT CPT-56453 Venipuncture Draw Fee 17:20:50 CDT CPT-38105 Venipuncture Draw Fee 18:00:48 CDT CPT-96507 Venipuncture Draw Fee 14:56:20 CDT CPT-JTINJ Asp/Joint Injection 18:47:02 CDT CPT-08420 Venipuncture Draw Fee 09:26:17 CDT CPT-05636 PT/INR - LAB USE ONLY 13:32:49 RESTAURANT FLOOR MANAGER CPT-01097 Venipuncture Draw Fee 13:32:49 RESTAURANT FLOOR MANAGER CPT-39945 PT/INR - LAB USE ONLY 10:34:49 RESTAURANT FLOOR MANAGER CPT-31776 Venipuncture Draw Fee 10:34:48 RESTAURANT FLOOR MANAGER CPT-21343 PT/INR - LAB USE ONLY 09:22:03 RESTAURANT FLOOR MANAGER CPT-34335 Venipuncture Draw Fee 09:22:02 RESTAURANT FLOOR MANAGER CPT-99978 Hemoccult IFOBT - LAB USE ONLY 10:27:22 CDT CPT-65726 Venipuncture Draw Fee 08:27:08 CDT CPT-43385 Liver Profile - LAB USE ONLY 08:27:07 CDT 2 CPT-56613 Microalbumin - LAB USE ONLY 08:27:07 CDT 20 25/05/09 CPT-05303 PT/INR - LAB USE ONLY 08:27:07 CDT CPT-64015 HGBA1C - LAB USE ONLY 08:27:07 CDT CPT-21186 CBC - LAB USE ONLY 08:27:07 CDT CPT-67348 Venipuncture Draw Fee 11:09:14 CDT CPT-12278 Venipuncture Draw Fee 08:32:21 RESTAURANT FLOOR MANAGER CPT-31211 Venipuncture Draw Fee 09:38:56 RESTAURANT FLOOR MANAGER CPT-61958 No Charge Offi Visit 21:36:07 CDT 1 CPT-32509 Venipuncture Draw Fee 10:13:28 RESTAURANT FLOOR MANAGER CPT-08735 Venipuncture Draw Fee 08:31:11 CDT CPT-39549 Aspir/Inject Med Joint 18:17:28 CDT CPT-40291 Venipuncture Draw Fee 10:13:30 CDT CPT-35939 Venipuncture Draw Fee 08:31:43 RESTAURANT FLOOR MANAGER CPT-JTINJ Joint Injection 18:34:50 CDT CPT-50610 Knee 3V 12:25:09 CDT CPT-56812 Venipuncture Draw Fee 12:15:57 CDT CPT-060 Medical Surveillance Exam 21:31:43 CDT 2011 CPT-33139 Venipuncture Draw Fee 08:32:05 RESTAURANT FLOOR MANAGER CPT-OV Office Visit 18:19:06 CDT
--- OUTSIDE RECORDS SUMMARY | 2020-01-18 13:47 | XMS REPORT | Clinical Summary ---
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 MINOXIDIL 2.5 MG ORAL TABLET 1 tablet twice daily for high b lood pressure MINOXIDIL 48978959991 Active Mitch Urbina DO Ac tive METFORMIN HCL ER 500 MG ORAL TABLET EXTENDED RELEASE 2 4 HOUR 2 tablets by mouth twice daily METFORMIN HCL 00442555593 Active Mitch Urbina DO Active GLIMEPIRIDE 4 MG ORAL TABLET 1 tablet by mouth twice daily f or diabetes GLIMEPIRIDE 47154825220 Active Mitch Urbina DO Active GLIMEPIRIDE 2 MG ORAL TABLET 1 po BID GLIMEPI RIDE 90370709545 No Longer Active Mitch Urbina DO Active AMLODIPINE BESYLATE 5 MG ORAL TABLET 1 tablet by mouth daily AMLODIPINE BESYLATE 78604808976 Active Mitch Urbina DO Active PROVIGIL 200 MG ORAL TABLET 1/2 tab po q day MODA FINIL 10507390564 Active Renee Oconnor LPN Active FAMOTIDINE 20 MG ORAL TABLET by mouth twice a day 2017 FAMOTIDINE 33240737988 No Longer Active Mitch Urbina DO Active COLCRYS 0.6 MG ORAL TABLET 1 tab qid prn gout C OLCHICINE 14983542479 No Longer Active Mitch Urbina DO Active KEFLEX 500 MG ORAL CAPSULE 1 po qid CEPHALEXI N 13607798679 No Longer Active Mitch Urbina DO Active LOSARTAN POTASSIUM 100 MG ORAL TABLET 1 pill by mouth daily, for blood pressure LOSARTAN POTASSIUM 05941954134 Active Mitch Arnol Carlitos EVLASQUEZ Active AMLODIPINE BESYLATE 5 MG ORAL TABLET 1 tablet by mouth daily 201 01/20/04 AMLODIPINE BESYLATE 51478556291 No Longer Active Joe fulton APRN Active MITIGARE 0.6 MG ORAL CAPSULE 2 capsules at onset of go ut pain, then take one capsule at 1 hour if symptoms persist. COLCHICINE 59 077055356 Active Mitch Urbina DO Active COUMADIN 1 MG ORAL TABLET 2 tabs orally daily with the 5mg tab to equal 7mg daily WARFARIN SODIUM 58966484928 Active Renee Oconnor LPN Active INVOKANA 100 MG ORAL TABLET 1 tablet orally daily CANAGLIFLOZIN 27835298243 Active Mitch Urbina DO Active MECLIZINE HCL 25 MG ORAL TABLET 1 po tid 3 days, then 1/2 ta b tid 3 days MECLIZINE HCL 29137382633 No Longer Active Corey SEGURA Active ALLOPURINOL 300 MG ORAL TABLET Take 1 tablet by mouth daily 2012 ALLOPURINOL 22832908066 No Longer Active Corey SEGURA Active CLONIDINE HCL 0.1 MG ORAL TABLET 1 po bid 7 days, then 1/2 t ab po bid 7 days CLONIDINE HCL 40711850974 No Longer Active Corey SEGURA Active COUMADIN 5 MG ORAL TABLET 1 tab PO daily WARFAR IN SODIUM 40774252517 Active Renee Oconnor LPN Active COUMADIN 4 MG ORAL TABLET 1 tablet daily WARFAR IN SODIUM 23566380835 No Longer Active Corey SEGURA Active POLYTRIM 48305-6.1 UNIT/ML-% OPHTHALMIC SOLUTION 1 rui p in affected eye every 3 hours while awake x 7 days POLYMYXIN B-TRIMETHOP RIM 06215020670 No Longer Active Corey SEGURA Active LOSARTAN POTASSIUM-HCTZ 100-12.5 MG ORAL TABLET 1 by m outh daily for high blood pressure LOSARTAN POTASSIUM-HCTZ 80194156484 No Longer A ctive Mitch Urbina DO Active LISINOPRIL-HYDROCHLOROTHIAZIDE 20-12.5 MG ORAL TABLET 1 tab by m outh daily LISINOPRIL-HYDROCHLOROTHIAZIDE 75609036427 No Longer Active Mitch Urbina DO Active LISINOPRIL 20 MG ORAL TABLET 1 tab po at HS LIS INOPRIL 80923073032 No Longer Active Mitch Urbina DO Active COUMADIN 5 MG ORAL TABLET 1 by mouth every other day 2 WARFARIN SODIUM 38953308084 No Longer Active Mitch Urbina DO Active COUMADIN 6 MG ORAL TABLET 1 by mouth every other day 2 WARFARIN SODIUM 77298516725 No Longer Active Mitch Urbina DO Active SIMVASTATIN 40 MG ORAL TABLET 1 tab daily at bedtime SIMVASTATIN 35816623181 Active Maria Rivas RN Active SIMVASTATIN 20 MG ORAL TABLET 1 tab daily at bedtime 2 SIMVASTATIN 92289622731 No Longer Active Mitch Urbina DO Active LOVENOX 100 MG/ML SUBCUTANEOUS SOLUTION One injection twice a da y ENOXAPARIN SODIUM 00385648945 No Longer Active Carmine Yusuf MD Active JANUVIA 50 MG ORAL TABLET Take one by mouth daily SITAGLIPTIN PHOSPHATE 54228663358 Active Renee Oconnor LPN Active JANUVIA 100 MG ORAL TABLET 1/2 by mouth every day 2011 SITAGLIPTIN PHOSPHATE 96552987544 No Longer Active Bijal Segal RN Acti ve METFORMIN HCL 500 MG ORAL TABLET 2 by mouth twice daily METFORMIN HCL 26601958955 No Longer Active Renee Oconnor LPN Active COLCRYS 0.6 MG ORAL TABLET 1 po q 6 hours prn gout pain COLCHICINE 22786047884 No Longer Active Camila Reese Active LISINOPRIL 5 MG ORAL TABLET 1 by mouth every day 11/17 LISINOPRIL 60115039933 No Longer Active Nguyen Aan Active KLOR-CON 20 MEQ ORAL PACKET Take one by mouth daily 09/10/08 POTASSIUM CHLORIDE 97654687225 No Longer Active Nguyen Ana Active FUROSEMIDE 40 MG ORAL TABLET 1 by mouth daily F UROSEMIDE 56519947974 No Longer Active Nguyen Ana Active PROVIGIL 100 MG ORAL TABLET Take one by mouth daily 08/20/04 MODAFINIL 45784841167 No Longer Active Mitch Urbina DO Active BACTRIM DS 800-160 MG ORAL TABLET 1 tab by mouth twice daily 201 10/19/09 TRIMETHOPRIM-SULFAMETHOXAZOLE 84698087615 No Longer Active Elian Hays MD Active ADULT ASPIRIN LOW STRENGTH 81 MG ORAL TABLET DISINTEGR ATING 1 by mouth every daily ASPIRIN 11782303889 Active Mitch Urbina DO Ac tive METOPROLOL TARTRATE 50 MG ORAL TABLET 1 by mouth twice daily METOPROLOL TARTRATE 61968642695 Active Maria Rivas RN Ac tive BACTRIM DS 800-160 MG ORAL TABLET 1 tab by mouth twice daily 201 10/19/09 BACTRIM DS 800-160 MG ORAL TABLET 433039 TRIMETHOPRIM-SULFAMETHOXAZOLE Inactive PROVIGIL 100 MG ORAL TABLET Take one by mouth daily 08/20/04 PROVIGIL 100 MG ORAL TABLET 987148 MODAFINIL Inactive FUROSEMIDE 40 MG ORAL TABLET 1 by mouth daily FUROSEMIDE 40 MG ORAL TABLET 798033 FUROSEMIDE Inactive KLOR-CON 20 MEQ ORAL PACKET Take one by mouth daily 09/10/08 KLOR- CON 20 MEQ ORAL PACKET 2982321 POTASSIUM CHLORIDE Inactive LISINOPRIL 5 MG ORAL TABLET 1 by mouth every day 11/17 LISINOPRIL 5 MG ORAL TABLET 619612 LISINOPRIL Inactive COLCRYS 0.6 MG ORAL TABLET 1 po q 6 hours prn gout pain COLCRYS 0.6 MG ORAL TABLET 500410 COLCHICINE Inactive JANUVIA 100 MG ORAL TABLET 1/2 by mouth every day 2011 JANUVIA 100 MG ORAL TABLET SITAGLIPTIN PHOSPHATE Inactive SIMVASTATIN 20 MG ORAL TABLET 1 tab daily at bedtime 2 SIMVASTATIN 20 MG ORAL TABLET 555486 SIMVASTATIN Inactive COUMADIN 6 MG ORAL TABLET 1 by mouth every other day 2 COUMADIN 6 MG ORAL TABLET 801795 WARFARIN SODIUM Inactive COUMADIN 5 MG ORAL TABLET 1 by mouth every other day 2 COUMADIN 5 MG ORAL TABLET 818186 WARFARIN SODIUM Inactive LISINOPRIL 20 MG ORAL TABLET 1 tab po at HS LISINOPRIL 20 MG ORAL TABLET 241216 LISINOPRIL Inactive LISINOPRIL-HYDROCHLOROTHIAZIDE 20-12.5 MG ORAL TABLET 1 tab by m outh daily LISINOPRIL-HYDROCHLOROTHIAZIDE 20-12.5 MG ORAL TABLET 474725 LISINOPRIL-HYDROCHLOROTHIAZIDE Inactive POLYTRIM 35383-7.1 UNIT/ML-% OPHTHALMIC SOLUTION 1 rui p in affected eye every 3 hours while awake x 7 days POLYTRIM 1000 0-0.1 UNIT/ML-% OPHTHALMIC SOLUTION 455849 POLYMYXIN B-TRIMETHOPRIM Inactive COUMADIN 4 MG ORAL TABLET 1 tablet daily COUMADIN 4 MG ORAL TABLET 855693 WARFARIN SODIUM Inactive CLONIDINE HCL 0.1 MG ORAL TABLET 1 po bid 7 days, then 1/2 t ab po bid 7 days CLONIDINE HCL 0.1 MG ORAL TABLET 964934 CLONIDIN E HCL Inactive ALLOPURINOL 300 MG ORAL TABLET Take 1 tablet by mouth daily 2012 ALLOPURINOL 300 MG ORAL TABLET 299611 ALLOPURINOL I nactive MECLIZINE HCL 25 MG ORAL TABLET 1 po tid 3 days, then 1/2 ta b tid 3 days MECLIZINE HCL 25 MG ORAL TABLET 258531 MECLIZINE HCL Inactive AMLODIPINE BESYLATE 5 MG ORAL TABLET 1 tablet by mouth daily 201 01/20/04 AMLODIPINE BESYLATE 5 MG ORAL TABLET 748056 AMLODIPINE BESYLATE Inactive KEFLEX 500 MG ORAL CAPSULE 1 po qid K EFLEX 500 MG ORAL CAPSULE 834555 CEPHALEXIN Inactive COLCRYS 0.6 MG ORAL TABLET 1 tab qid prn gout COLCRYS 0.6 MG ORAL TABLET 108412 COLCHICINE Inactive FAMOTIDINE 20 MG ORAL TABLET by mouth twice a day 2017 FAMOTIDINE 20 MG ORAL TABLET 696835 FAMOTIDINE Inactive GLIMEPIRIDE 2 MG ORAL TABLET 1 po BID GLIMEPIRIDE 2 MG ORAL TABLET 283016 GLIMEPIRIDE Inactive LOVENOX 100 MG/ML SUBCUTANEOUS SOLUTION One injection twice a da y LOVENOX 100 MG/ML SUBCUTANEOUS SOLUTION 484722 ENOXAPAR IN SODIUM Inactive PREDNISONE 20 MG ORAL TABLET 2 tabs daily for 3 days 1 tab d aily for 3 days PREDNISONE 20 MG ORAL TABLET 816056 PREDNISONE Inactive Advance Directives Directive Description Start [...] mg/dL Encounters Code Encounter Date Provider Facility CPT-83099 Level 3 Est. Patient 15:18:36 CDT Becky Se ll ANNIE [facility] CPT-26248 [id number] Vst-Est Level IV 10:06:35 CDT Stephy Urbina [facility] CPT-63367 [id number] Vst-Est Level IV 10:52:00 [employer] Stephy Urbina [facility]-17780 Level 3 Est. Patient 18:25:53 CDT Mitch Ambrose Nona luis [facility] CPT-14656 Level 3 Est. Patient 19:43:34 CDT Mitch Ambrose Nona luis [facility] CPT-84026 Level 4 Est. Patient 09:30:18 CDT Mitch Ambrose Nona luis [facility] CPT-43465 Level 3 Est. Patient 15:10:14 CDT Joe kamara [facility] CPT-12334 Level 3 Est. Patient 15:03:46 CDT Joe Gomez courtangela [facility] CPT-76929 Level 3 Est. Patient 14:21:06 CDT Mitch Ambrose Nona luis [facility] CPT-58435 Level 3 Est. Patient 14:52:06 CDT Joe Gomez courtangela [facility] CPT-60938 Level 3 Est. Patient 09:34:30 [employer] Mitch luis [facility] CPT-21987 Level 3 Est. Patient 09:37:15 CDT Mitch luis [facility] CPT-57625 Level 3 Est. Patient 17:01:00 [employer] Mitch luis [facility] CPT-51317 Level 3 Est. Patient 13:53:19 [employer] Mitch luis [facility] CPT-25569 Level 3 Est. Patient 19:19:37 [employer] Mitch luis [facility] CPT-94062 Level 3 Est. Patient 13:25:53 [employer] Tavo toure MD [facility]-06457 Level 3 Est. Patient 18:17:28 CDT Mitch luis [facility] CPT-69836 Level 3 Est. Patient 15:22:57 CDT Mitch luis [facility] CPT-16874 Level 3 Est. Patient 18:21:50 CDT Mitch luis [facility] CPT-34041 Level 3 Est. Patient 18:20:38 CDT Mitch luis [facility] CPT-53056 Level 3 Est. Patient 15:37:55 CDT Mitch luis [facility] CPT-48690 Level 2 Est. Patient 15:54:44 CDT Carmine benton MD [facility]-33242 Level 3 Est. Patient 21:46:01 [employer] Mitch luis [facility] CPT-11391 Level 3 Est. Patient 22:15:50 CDT Mitch luis [facility] CPT-53799 Level 3 Est. Patient 10:48:15 CDT Mitch luis [facility] CPT-09919 Level 3 Est. Patient 23:20:57 CDT Tavo toure MD [facility] CPT-88360 Level 3 Est. Patient 16:26:13 CDT Mitch luis [facility] Procedures Code Procedure Name Date Entry Date Standard Desc ription CPT-39015 Venipuncture Draw Fee 17:04:55 CDT CPT-78804 Venipuncture Draw Fee 17:20:50 CDT CPT-78822 Venipuncture Draw Fee 18:00:48 CDT CPT-76833 Venipuncture Draw Fee 14:56:20 CDT CPT-JTINJ Asp/Joint Injection 18:47:02 CDT CPT-38631 Venipuncture Draw Fee 09:26:17 CDT CPT-92086 PT/INR - LAB USE ONLY 13:32:49 [employer] CPT-53436 Venipuncture Draw Fee 13:32:49 [employer] CPT-85739 PT/INR - LAB USE ONLY 10:34:49 [employer] CPT-04865 Venipuncture Draw Fee 10:34:48 [employer] CPT-54485 PT/INR - LAB USE ONLY 09:22:03 [employer] CPT-49886 Venipuncture Draw Fee 09:22:02 [employer] CPT-88735 Hemoccult IFOBT - LAB USE ONLY 10:27:22 CDT CPT-78052 Venipuncture Draw Fee 08:27:08 CDT CPT-30064 Liver Profile - LAB USE ONLY 08:27:07 CDT 2 CPT-41266 Microalbumin - LAB USE ONLY 08:27:07 CDT 20 25/05/09 CPT-81617 PT/INR - LAB USE ONLY 08:27:07 CDT CPT-32906 HGBA1C - LAB USE ONLY 08:27:07 CDT CPT-05062 CBC - LAB USE ONLY 08:27:07 CDT CPT-12361 Venipuncture Draw Fee 11:09:14 CDT CPT-75278 Venipuncture Draw Fee 08:32:21 [employer] CPT-34944 Venipuncture Draw Fee 09:38:56 [employer] CPT-33991 No Charge Offi Visit 21:36:07 CDT 1 CPT-52300 Venipuncture Draw Fee 10:13:28 [employer] CPT-31070 Venipuncture Draw Fee 08:31:11 CDT CPT-34759 Aspir/Inject Med Joint 18:17:28 CDT CPT-53144 Venipuncture Draw Fee 10:13:30 CDT CPT-61924 Venipuncture Draw Fee 08:31:43 [employer] CPT-JTINJ Joint Injection 18:34:50 CDT CPT-13368 Knee 3V 12:25:09 CDT CPT-52465 Venipuncture Draw Fee 12:15:57 CDT CPT-060 Medical Surveillance Exam 21:31:43 CDT 2011 CPT-62916 Venipuncture Draw Fee 08:32:05 [employer] CPT-OV Office Visit 18:19:06 CDT
--- OUTSIDE RECORDS SUMMARY | 2020-01-18 13:47 | XMS REPORT | Clinical Summary ---
Author Author Admin, Mitch Leon Organization [facility] Address Unknown Phone Unavailable Allergies, Adverse Reactions, [...] Coronary atherosclerosis of unspecified type of vessel, inaja or graft EDEMA 782.3 Resolved Mitch Urbina [...] Name NDC Status Provider Patient Instruction LOSARTAN TABS 100MG TAKE 1 TABLET DAILY FOR BLOOD PRESSURE LOSARTAN POTASSIUM 28917673089 Active Maria Rivas RN Active FLUTICASONE PROPIONATE 50 MCG/ACT NASAL SUSPENSION 1 s pray each nostril twice daily for 1 week, then once daily FLUTICASONE DC OPIONATE 64437503316 Active Becky Sell REMEDIAL MASSEUR Active PREDNISONE 20 MG ORAL TABLET 2 tabs daily for 3 days 1 tab d aily for 3 days PREDNISONE 94498767675 No Longer Active Becky Sell REMEDIAL MASSEUR Active MINOXIDIL 2.5 MG ORAL TABLET 1 tablet twice daily for high b lood pressure MINOXIDIL 93396167241 Active Mitch Urbina DO Ac tive METFORMIN HCL ER 500 MG ORAL TABLET EXTENDED RELEASE 2 4 HOUR 2 tablets by mouth twice daily METFORMIN HCL 80566187540 Active Mitch Urbina DO Active GLIMEPIRIDE 4 MG ORAL TABLET 1 tablet by mouth twice daily f or diabetes GLIMEPIRIDE 72322836886 Active Mitch Urbina DO Active GLIMEPIRIDE 2 MG ORAL TABLET 1 po BID GLIMEPI RIDE 44128654690 No Longer Active Mitch Urbina DO Active AMLODIPINE BESYLATE 5 MG ORAL TABLET 1 tablet by mouth daily AMLODIPINE BESYLATE 70312670208 Active Mitch Urbina DO Active PROVIGIL 200 MG ORAL TABLET 1/2 tab po q day MODA FINIL 57182039541 Active Renee Oconnor LPN Active FAMOTIDINE 20 MG ORAL TABLET by mouth twice a day 2017 FAMOTIDINE 09787443989 No Longer Active Mitch Urbina DO Active COLCRYS 0.6 MG ORAL TABLET 1 tab qid prn gout C OLCHICINE 70798919826 No Longer Active Mitch Urbina DO Active KEFLEX 500 MG ORAL CAPSULE 1 po qid CEPHALEXI N 90719947712 No Longer Active Mitch Urbina DO Active AMLODIPINE BESYLATE 5 MG ORAL TABLET 1 tablet by mouth daily 201 01/20/04 AMLODIPINE BESYLATE 89694973898 No Longer Active Joe fulton APRN Active MITIGARE 0.6 MG ORAL CAPSULE 2 capsules at onset of go ut pain, then take one capsule at 1 hour if symptoms persist. COLCHICINE 59 470380078 Active Mitch Urbina DO Active COUMADIN 1 MG ORAL TABLET 2 tabs orally daily with the 5mg tab to equal 7mg daily WARFARIN SODIUM 87867186799 Active Renee Oconnor LPN Active INVOKANA 100 MG ORAL TABLET 1 tablet orally daily CANAGLIFLOZIN 88960797936 Active Mitch Urbina DO Active MECLIZINE HCL 25 MG ORAL TABLET 1 po tid 3 days, then 1/2 ta b tid 3 days MECLIZINE HCL 80749124694 No Longer Active Corey SEGURA Active ALLOPURINOL 300 MG ORAL TABLET Take 1 tablet by mouth daily 2012 ALLOPURINOL 60512467208 No Longer Active Corey SEGURA Active CLONIDINE HCL 0.1 MG ORAL TABLET 1 po bid 7 days, then 1/2 t ab po bid 7 days CLONIDINE HCL 96138090278 No Longer Active Corey SEGURA Active COUMADIN 5 MG ORAL TABLET 1 tab PO daily WARFAR IN SODIUM 52922337097 Active Renee Oconnor LPN Active COUMADIN 4 MG ORAL TABLET 1 tablet daily WARFAR IN SODIUM 38427358009 No Longer Active Corey SEGURA Active POLYTRIM 77543-7.1 UNIT/ML-% OPHTHALMIC SOLUTION 1 rui p in affected eye every 3 hours while awake x 7 days POLYMYXIN B-TRIMETHOP RIM 54304917648 No Longer Active Corey SEGURA Active LOSARTAN POTASSIUM-HCTZ 100-12.5 MG ORAL TABLET 1 by m outh daily for high blood pressure LOSARTAN POTASSIUM-HCTZ 92253416457 No Longer A ctive Mitch Urbina DO Active LISINOPRIL-HYDROCHLOROTHIAZIDE 20-12.5 MG ORAL TABLET 1 tab by m outh daily LISINOPRIL-HYDROCHLOROTHIAZIDE 92664318938 No Longer Active Mitch Urbina DO Active LISINOPRIL 20 MG ORAL TABLET 1 tab po at HS LIS INOPRIL 39639934502 No Longer Active Mitch Urbina DO Active COUMADIN 5 MG ORAL TABLET 1 by mouth every other day 2 WARFARIN SODIUM 08630463037 No Longer Active Mitch Urbina DO Active COUMADIN 6 MG ORAL TABLET 1 by mouth every other day 2 WARFARIN SODIUM 91135006264 No Longer Active Mitch Urbina DO Active SIMVASTATIN 40 MG ORAL TABLET 1 tab daily at bedtime SIMVASTATIN 51139730413 Active Maria Rivas RN Active SIMVASTATIN 20 MG ORAL TABLET 1 tab daily at bedtime 2 SIMVASTATIN 73380953593 No Longer Active Mitch Urbina DO Active LOVENOX 100 MG/ML SUBCUTANEOUS SOLUTION One injection twice a da y ENOXAPARIN SODIUM 44080028195 No Longer Active Carmine Yusuf MD Active JANUVIA 50 MG ORAL TABLET Take one by mouth daily SITAGLIPTIN PHOSPHATE 58113445561 Active Renee Oconnor LPN Active JANUVIA 100 MG ORAL TABLET 1/2 by mouth every day 2011 SITAGLIPTIN PHOSPHATE 57421368370 No Longer Active Bijal Segal RN Acti ve METFORMIN HCL 500 MG ORAL TABLET 2 by mouth twice daily METFORMIN HCL 87915006698 No Longer Active Renee Oconnor LPN Active COLCRYS 0.6 MG ORAL TABLET 1 po q 6 hours prn gout pain COLCHICINE 20932443649 No Longer Active Camila Reese Active LISINOPRIL 5 MG ORAL TABLET 1 by mouth every day 11/17 LISINOPRIL 68482701891 No Longer Active Nguyen Ana Active KLOR-CON 20 MEQ ORAL PACKET Take one by mouth daily 09/10/08 POTASSIUM CHLORIDE 78480830917 No Longer Active Nguyen Ana Active FUROSEMIDE 40 MG ORAL TABLET 1 by mouth daily F UROSEMIDE 60881099122 No Longer Active Nguyen Ana Active PROVIGIL 100 MG ORAL TABLET Take one by mouth daily 08/20/04 MODAFINIL 17398955180 No Longer Active Mitch Urbina DO Active BACTRIM DS 800-160 MG ORAL TABLET 1 tab by mouth twice daily 201 10/19/09 TRIMETHOPRIM-SULFAMETHOXAZOLE 54530827994 No Longer Active Elian Hays MD Active ADULT ASPIRIN LOW STRENGTH 81 MG ORAL TABLET DISINTEGR ATING 1 by mouth every daily ASPIRIN 59354629279 Active Mitch Urbina DO Ac tive METOPROLOL TARTRATE 50 MG ORAL TABLET 1 by mouth twice daily METOPROLOL TARTRATE 31453293415 Active Maria Rivas RN Ac tive BACTRIM DS 800-160 MG ORAL TABLET 1 tab by mouth twice daily 201 10/19/09 BACTRIM DS 800-160 MG ORAL TABLET 386134 TRIMETHOPRIM-SULFAMETHOXAZOLE Inactive PROVIGIL 100 MG ORAL TABLET Take one by mouth daily 08/20/04 PROVIGIL 100 MG ORAL TABLET 190643 MODAFINIL Inactive FUROSEMIDE 40 MG ORAL TABLET 1 by mouth daily FUROSEMIDE 40 MG ORAL TABLET 126311 FUROSEMIDE Inactive KLOR-CON 20 MEQ ORAL PACKET Take one by mouth daily 09/10/08 KLOR- CON 20 MEQ ORAL PACKET 9176271 POTASSIUM CHLORIDE Inactive LISINOPRIL 5 MG ORAL TABLET 1 by mouth every day 11/17 LISINOPRIL 5 MG ORAL TABLET 527685 LISINOPRIL Inactive COLCRYS 0.6 MG ORAL TABLET 1 po q 6 hours prn gout pain COLCRYS 0.6 MG ORAL TABLET 292276 COLCHICINE Inactive JANUVIA 100 MG ORAL TABLET 1/2 by mouth every day 2011 JANUVIA 100 MG ORAL TABLET SITAGLIPTIN PHOSPHATE Inactive SIMVASTATIN 20 MG ORAL TABLET 1 tab daily at bedtime 2 SIMVASTATIN 20 MG ORAL TABLET 262438 SIMVASTATIN Inactive COUMADIN 6 MG ORAL TABLET 1 by mouth every other day 2 COUMADIN 6 MG ORAL TABLET 580556 WARFARIN SODIUM Inactive COUMADIN 5 MG ORAL TABLET 1 by mouth every other day 2 COUMADIN 5 MG ORAL TABLET 243151 WARFARIN SODIUM Inactive LISINOPRIL 20 MG ORAL TABLET 1 tab po at HS LISINOPRIL 20 MG ORAL TABLET 206733 LISINOPRIL Inactive LISINOPRIL-HYDROCHLOROTHIAZIDE 20-12.5 MG ORAL TABLET 1 tab by m outh daily LISINOPRIL-HYDROCHLOROTHIAZIDE 20-12.5 MG ORAL TABLET 974029 LISINOPRIL-HYDROCHLOROTHIAZIDE Inactive POLYTRIM 32944-8.1 UNIT/ML-% OPHTHALMIC SOLUTION 1 rui p in affected eye every 3 hours while awake x 7 days POLYTRIM 1000 0-0.1 UNIT/ML-% OPHTHALMIC SOLUTION 701521 POLYMYXIN B-TRIMETHOPRIM Inactive COUMADIN 4 MG ORAL TABLET 1 tablet daily COUMADIN 4 MG ORAL TABLET 750745 WARFARIN SODIUM Inactive CLONIDINE HCL 0.1 MG ORAL TABLET 1 po bid 7 days, then 1/2 t ab po bid 7 days CLONIDINE HCL 0.1 MG ORAL TABLET 311584 CLONIDIN E HCL Inactive ALLOPURINOL 300 MG ORAL TABLET Take 1 tablet by mouth daily 2012 ALLOPURINOL 300 MG ORAL TABLET 843959 ALLOPURINOL I nactive MECLIZINE HCL 25 MG ORAL TABLET 1 po tid 3 days, then 1/2 ta b tid 3 days MECLIZINE HCL 25 MG ORAL TABLET 127524 MECLIZINE HCL Inactive AMLODIPINE BESYLATE 5 MG ORAL TABLET 1 tablet by mouth daily 201 01/20/04 AMLODIPINE BESYLATE 5 MG ORAL TABLET 369539 AMLODIPINE BESYLATE Inactive KEFLEX 500 MG ORAL CAPSULE 1 po qid K EFLEX 500 MG ORAL CAPSULE 799689 CEPHALEXIN Inactive COLCRYS 0.6 MG ORAL TABLET 1 tab qid prn gout COLCRYS 0.6 MG ORAL TABLET 805855 COLCHICINE Inactive FAMOTIDINE 20 MG ORAL TABLET by mouth twice a day 2017 FAMOTIDINE 20 MG ORAL TABLET 123041 FAMOTIDINE Inactive GLIMEPIRIDE 2 MG ORAL TABLET 1 po BID GLIMEPIRIDE 2 MG ORAL TABLET 773813 GLIMEPIRIDE Inactive LOVENOX 100 MG/ML SUBCUTANEOUS SOLUTION One injection twice a da y LOVENOX 100 MG/ML SUBCUTANEOUS SOLUTION 795953 ENOXAPAR IN SODIUM Inactive PREDNISONE 20 MG ORAL TABLET 2 tabs daily for 3 days 1 tab d aily for 3 days PREDNISONE 20 MG ORAL TABLET 824160 PREDNISONE Inactive Advance Directives Directive Description Start [...] mg/dL Encounters Code Encounter Date Provider Facility CPT-64782 Level 3 Est. Patient 15:18:36 CDT Becky Se ll ANNIE [facility] CPT-68813 [id number] Vst-Est Level IV 10:06:35 CDT Stephy Urbina [facility] CPT-70987 98226-Ndy Vst-Est Level IV 10:52:00 RESEARCH METHODOLOGIST Stephy Urbina [facility]-62998 Level 3 Est. Patient 18:25:53 CDT Mitch Ambrose Nona luis [facility] CPT-34345 Level 3 Est. Patient 19:43:34 CDT Mitch Ambrose Nona luis [facility] CPT-62154 Level 4 Est. Patient 09:30:18 CDT Mitch Ambrose Nona luis [facility] CPT-31740 Level 3 Est. Patient 15:10:14 CDT Joe kamara [facility] CPT-82446 Level 3 Est. Patient 15:03:46 CDT Joe Gomez courtangela [facility] CPT-68750 Level 3 Est. Patient 14:21:06 CDT Mitch Ambrose Nona luis [facility] CPT-33198 Level 3 Est. Patient 14:52:06 CDT Joe Gomez courtangela [facility] CPT-41349 Level 3 Est. Patient 09:34:30 RESEARCH METHODOLOGIST Mitch luis [facility] CPT-89310 Level 3 Est. Patient 09:37:15 CDT Mitch luis [facility] CPT-34691 Level 3 Est. Patient 17:01:00 RESEARCH METHODOLOGIST Mitch luis [facility] CPT-13525 Level 3 Est. Patient 13:53:19 RESEARCH METHODOLOGIST Mitch luis [facility] CPT-92791 Level 3 Est. Patient 19:19:37 RESEARCH METHODOLOGIST Mitch luis [facility] CPT-83397 Level 3 Est. Patient 13:25:53 RESEARCH METHODOLOGIST Tavo toure MD [facility]-35844 Level 3 Est. Patient 18:17:28 CDT Mitch luis [facility] CPT-53738 Level 3 Est. Patient 15:22:57 CDT Mitch luis [facility] CPT-17316 Level 3 Est. Patient 18:21:50 CDT Mitch luis [facility] CPT-75347 Level 3 Est. Patient 18:20:38 CDT Mitch luis [facility] CPT-26821 Level 3 Est. Patient 15:37:55 CDT Mitch luis [facility] CPT-21360 Level 2 Est. Patient 15:54:44 CDT Carmine benton MD [facility]-31290 Level 3 Est. Patient 21:46:01 RESEARCH METHODOLOGIST Mitch luis [facility] CPT-78760 Level 3 Est. Patient 22:15:50 CDT Mitch luis [facility] CPT-97396 Level 3 Est. Patient 10:48:15 CDT Mitch luis [facility] CPT-91760 Level 3 Est. Patient 23:20:57 CDT Tavo toure MD [facility] CPT-69451 Level 3 Est. Patient 16:26:13 CDT Mitch luis [facility] Procedures Code Procedure Name Date Entry Date Standard Desc ription CPT-67222 Venipuncture Draw Fee 17:04:55 CDT CPT-47821 Venipuncture Draw Fee 17:20:50 CDT CPT-51895 Venipuncture Draw Fee 18:00:48 CDT CPT-70778 Venipuncture Draw Fee 14:56:20 CDT CPT-JTINJ Asp/Joint Injection 18:47:02 CDT CPT-24349 Venipuncture Draw Fee 09:26:17 CDT CPT-04427 PT/INR - LAB USE ONLY 13:32:49 RESEARCH METHODOLOGIST CPT-16031 Venipuncture Draw Fee 13:32:49 RESEARCH METHODOLOGIST CPT-61609 PT/INR - LAB USE ONLY 10:34:49 RESEARCH METHODOLOGIST CPT-70059 Venipuncture Draw Fee 10:34:48 RESEARCH METHODOLOGIST CPT-94709 PT/INR - LAB USE ONLY 09:22:03 RESEARCH METHODOLOGIST CPT-77421 Venipuncture Draw Fee 09:22:02 RESEARCH METHODOLOGIST CPT-27771 Hemoccult IFOBT - LAB USE ONLY 10:27:22 CDT CPT-44410 Venipuncture Draw Fee 08:27:08 CDT CPT-20081 Liver Profile - LAB USE ONLY 08:27:07 CDT 2 CPT-42265 Microalbumin - LAB USE ONLY 08:27:07 CDT 20 25/05/09 CPT-95028 PT/INR - LAB USE ONLY 08:27:07 CDT CPT-90499 HGBA1C - LAB USE ONLY 08:27:07 CDT CPT-85206 CBC - LAB USE ONLY 08:27:07 CDT CPT-90616 Venipuncture Draw Fee 11:09:14 CDT CPT-00694 Venipuncture Draw Fee 08:32:21 RESEARCH METHODOLOGIST CPT-18241 Venipuncture Draw Fee 09:38:56 RESEARCH METHODOLOGIST CPT-12770 No Charge Offi Visit 21:36:07 CDT 1 CPT-69105 Venipuncture Draw Fee 10:13:28 RESEARCH METHODOLOGIST CPT-69564 Venipuncture Draw Fee 08:31:11 CDT CPT-35906 Aspir/Inject Med Joint 18:17:28 CDT CPT-40387 Venipuncture Draw Fee 10:13:30 CDT CPT-32666 Venipuncture Draw Fee 08:31:43 RESEARCH METHODOLOGIST CPT-JTINJ Joint Injection 18:34:50 CDT CPT-45821 Knee 3V 12:25:09 CDT CPT-14302 Venipuncture Draw Fee 12:15:57 CDT CPT-060 Medical Surveillance Exam 21:31:43 CDT 2011 CPT-26176 Venipuncture Draw Fee 08:32:05 RESEARCH METHODOLOGIST CPT-OV Office Visit 18:19:06 CDT
--- OUTSIDE RECORDS SUMMARY | 2020-01-18 13:48 | XMS REPORT | Clinical Summary ---
[...] Asthma, unspecified Influenza Vaccination for Prophylaxis V04.81 Active Mitch Arnol Urbina DO Need for prophylactic vaccination and in oculation against influenza CELLULITIS, GROIN, LEFT ICD-682.2 Inactive Bruc e Arnol Urbina DO SEROMA ICD-998.13 Inactive Mitch Arnol Urbina DO REACTIVE HYPOGLYCEMIA ICD-251.2 Inactive Mitch Arnol Carlitos DO LONG-TERM (CURRENT) USE OF ANTICOAGULANTS ICD-V58.61 Inactive Mitch Urbina DO EDEMA ICD-782.3 Inactive Mitch Arnol Carlitos DO DIZZINESS ICD-780.4 Inactive Mitch Urbina DO 10/23 GOUT, RIGHT WRIST ICD-274.9 Inactive Mitch Ambrose Le e DO BRUISE ICD-924.9 Inactive Mitch Arnol Carlitos DO OLECRANON BURSITIS, RIGHT ICD-726.33 Inactive Mitch Urbina DO UNSPECIFIED ANEMIA ICD-285.9 Inactive Mitch luis DO Malaise and fatigue ICD-780.79 Inactive Mitch Urbina DO Cough, chronic ICD-786.2 Inactive Mitch Tejeda O Sebaceous cyst, infected ICD-706.2 Inactive Mitch Urbina DO Cellulitis ICD-682.9 Inactive Mitch Urbina DO 10/23 Medication List Medication Instructions Start Date Stop Date Generic Name NDC Status Provider Patient Instruction DOXAZOSIN MESYLATE 2 MG ORAL TABLET 1 po q day for pr ostate and blood pressure DOXAZOSIN MESYLATE 76463912698 Active Mitch Urbina DO Active LOSARTAN TABS 100MG TAKE 1 TABLET DAILY FOR BLOOD PRESSURE LOSARTAN POTASSIUM 69200091213 Active Maria Rivas RN Active FLUTICASONE PROPIONATE 50 MCG/ACT NASAL SUSPENSION 1 s pray each nostril twice daily for 1 week, then once daily FLUTICASONE SD OPIONATE 52337139287 Active Becky Sell AIRCRAFT TECHNICIAN Active PREDNISONE 20 MG ORAL TABLET 2 tabs daily for 3 days 1 tab d aily for 3 days PREDNISONE 57156272368 No Longer Active Becky Sell AIRCRAFT TECHNICIAN Active MINOXIDIL 2.5 MG ORAL TABLET 1 tablet twice daily for high b lood pressure MINOXIDIL 53708575551 Active Mitch Urbina DO Ac tive METFORMIN HCL ER 500 MG ORAL TABLET EXTENDED RELEASE 2 4 HOUR 2 tablets by mouth twice daily METFORMIN HCL 57351071940 Active Mitch Urbina DO Active GLIMEPIRIDE 4 MG ORAL TABLET 1 tablet by mouth twice daily f or diabetes GLIMEPIRIDE 11982357371 Active Mitch Urbina DO Active GLIMEPIRIDE 2 MG ORAL TABLET 1 po BID GLIMEPI RIDE 31450411011 No Longer Active Mitch Urbina DO Active AMLODIPINE BESYLATE 5 MG ORAL TABLET 1 tablet by mouth daily AMLODIPINE BESYLATE 35104897776 Active Mitch Urbina DO Active PROVIGIL 200 MG ORAL TABLET 1/2 tab po q day MODA FINIL 56678908696 Active Renee Oconnor LPN Active FAMOTIDINE 20 MG ORAL TABLET by mouth twice a day 2017 FAMOTIDINE 23801671214 No Longer Active Mitch Ambrose Carlitos Active COLCRYS 0.6 MG ORAL TABLET 1 tab qid prn gout C OLCHICINE 73452594251 No Longer Active Mitch Urbina DO Active KEFLEX 500 MG ORAL CAPSULE 1 po qid CEPHALEXI N 55290370431 No Longer Active Mitch Urbina DO Active AMLODIPINE BESYLATE 5 MG ORAL TABLET 1 tablet by mouth daily 201 01/20/04 AMLODIPINE BESYLATE 30655443613 No Longer Active Joe fulton APRN Active MITIGARE 0.6 MG ORAL CAPSULE 2 capsules at onset of go ut pain, then take one capsule at 1 hour if symptoms persist. COLCHICINE 59 437276688 Active Mitch Urbina DO Active COUMADIN 1 MG ORAL TABLET 2 tabs orally daily with the 5mg tab to equal 7mg daily WARFARIN SODIUM 16432725409 Active Renee Oconnor LPN Active INVOKANA 100 MG ORAL TABLET 1 tablet orally daily CANAGLIFLOZIN 02678170926 Active Mitch Urbina DO Active MECLIZINE HCL 25 MG ORAL TABLET 1 po tid 3 days, then 1/2 ta b tid 3 days MECLIZINE HCL 09470354593 No Longer Active Corey SEGURA Active ALLOPURINOL 300 MG ORAL TABLET Take 1 tablet by mouth daily 2012 ALLOPURINOL 77524393863 No Longer Active Corey SEGURA Active CLONIDINE HCL 0.1 MG ORAL TABLET 1 po bid 7 days, then 1/2 t ab po bid 7 days CLONIDINE HCL 80432935758 No Longer Active Corey SEGURA Active COUMADIN 5 MG ORAL TABLET 1 tab PO daily WARFAR IN SODIUM 29576904171 Active Renee Oconnor LPN Active COUMADIN 4 MG ORAL TABLET 1 tablet daily WARFAR IN SODIUM 30780748921 No Longer Active Corey SEGURA Active POLYTRIM 06226-7.1 UNIT/ML-% OPHTHALMIC SOLUTION 1 rui p in affected eye every 3 hours while awake x 7 days POLYMYXIN B-TRIMETHOP RIM 06891404414 No Longer Active Corey SEGURA Active LOSARTAN POTASSIUM-HCTZ 100-12.5 MG ORAL TABLET 1 by m outh daily for high blood pressure LOSARTAN POTASSIUM-HCTZ 58361800036 No Longer A ctive Mitch Urbina DO Active LISINOPRIL-HYDROCHLOROTHIAZIDE 20-12.5 MG ORAL TABLET 1 tab by m outh daily LISINOPRIL-HYDROCHLOROTHIAZIDE 72481818448 No Longer Active Mitch Urbina DO Active LISINOPRIL 20 MG ORAL TABLET 1 tab po at HS LIS INOPRIL 69697915985 No Longer Active Mitch Urbina DO Active COUMADIN 5 MG ORAL TABLET 1 by mouth every other day 2 WARFARIN SODIUM 98711197901 No Longer Active Mitch Urbina DO Active COUMADIN 6 MG ORAL TABLET 1 by mouth every other day 2 WARFARIN SODIUM 12447344305 No Longer Active Mitch Urbina DO Active SIMVASTATIN 40 MG ORAL TABLET 1 tab daily at bedtime SIMVASTATIN 98674826938 Active Maria Rivas RN Active SIMVASTATIN 20 MG ORAL TABLET 1 tab daily at bedtime 2 SIMVASTATIN 82903865426 No Longer Active Mitch Urbina DO Active LOVENOX 100 MG/ML SUBCUTANEOUS SOLUTION One injection twice a da y ENOXAPARIN SODIUM 98082130512 No Longer Active Carmine Yusuf MD Active JANUVIA 50 MG ORAL TABLET Take one by mouth daily SITAGLIPTIN PHOSPHATE 73912719132 Active Renee Oconnor LPN Active JANUVIA 100 MG ORAL TABLET 1/2 by mouth every day 2011 SITAGLIPTIN PHOSPHATE 72750674526 No Longer Active Bijal Segal RN Acti ve METFORMIN HCL 500 MG ORAL TABLET 2 by mouth twice daily METFORMIN HCL 66419885645 No Longer Active Renee Oconnor RENT COLLECTOR Active COLCRYS 0.6 MG ORAL TABLET 1 po q 6 hours prn gout pain COLCHICINE 82962474180 No Longer Active Camila Reese Active LISINOPRIL 5 MG ORAL TABLET 1 by mouth every day 11/17 LISINOPRIL 59385843185 No Longer Active Nguyen Perez Active KLOR-CON 20 MEQ ORAL PACKET Take one by mouth daily 09/10/08 POTASSIUM CHLORIDE 67254200409 No Longer Active Nguyen Perez Active FUROSEMIDE 40 MG ORAL TABLET 1 by mouth daily F UROSEMIDE 72236335519 No Longer Active Nguyen Perez Active PROVIGIL 100 MG ORAL TABLET Take one by mouth daily 08/20/04 MODAFINIL 68177548169 No Longer Active Mitch Urbina DO Active BACTRIM DS 800-160 MG ORAL TABLET 1 tab by mouth twice daily 201 10/19/09 TRIMETHOPRIM-SULFAMETHOXAZOLE 93775349261 No Longer Active C alberto Hays MD Active ADULT ASPIRIN LOW STRENGTH 81 MG ORAL TABLET DISINTEGR ATING 1 by mouth every daily ASPIRIN 91294526148 Active Mitch Urbina DO Ac tive METOPROLOL TARTRATE 50 MG ORAL TABLET 1 by mouth twice daily METOPROLOL TARTRATE 24900203798 Active Maria Rivas RN Ac tive BACTRIM DS 800-160 MG ORAL TABLET 1 tab by mouth twice daily 201 10/19/09 BACTRIM DS 800-160 MG ORAL TABLET 167134 TRIMETHOPRIM-SULFAMETHOXAZOLE Inactive PROVIGIL 100 MG ORAL TABLET Take one by mouth daily 08/20/04 PROVIGIL 100 MG ORAL TABLET 253754 MODAFINIL Inactive FUROSEMIDE 40 MG ORAL TABLET 1 by mouth daily FUROSEMIDE 40 MG ORAL TABLET 354932 FUROSEMIDE Inactive KLOR-CON 20 MEQ ORAL PACKET Take one by mouth daily 09/10/08 KLOR- CON 20 MEQ ORAL PACKET 3522608 POTASSIUM CHLORIDE Inactive LISINOPRIL 5 MG ORAL TABLET 1 by mouth every day 11/17 LISINOPRIL 5 MG ORAL TABLET 779025 LISINOPRIL Inactive COLCRYS 0.6 MG ORAL TABLET 1 po q 6 hours prn gout pain COLCRYS 0.6 MG ORAL TABLET 257892 COLCHICINE Inactive JANUVIA 100 MG ORAL TABLET 1/2 by mouth every day 2011 JANUVIA 100 MG ORAL TABLET SITAGLIPTIN PHOSPHATE Inactive SIMVASTATIN 20 MG ORAL TABLET 1 tab daily at bedtime 2 SIMVASTATIN 20 MG ORAL TABLET 025893 SIMVASTATIN Inactive COUMADIN 6 MG ORAL TABLET 1 by mouth every other day 2 COUMADIN 6 MG ORAL TABLET 971396 WARFARIN SODIUM Inactive COUMADIN 5 MG ORAL TABLET 1 by mouth every other day 2 COUMADIN 5 MG ORAL TABLET 865735 WARFARIN SODIUM Inactive LISINOPRIL 20 MG ORAL TABLET 1 tab po at HS LISINOPRIL 20 MG ORAL TABLET 010218 LISINOPRIL Inactive LISINOPRIL-HYDROCHLOROTHIAZIDE 20-12.5 MG ORAL TABLET 1 tab by m outh daily LISINOPRIL-HYDROCHLOROTHIAZIDE 20-12.5 MG ORAL TABLET 510505 LISINOPRIL-HYDROCHLOROTHIAZIDE Inactive POLYTRIM 75118-2.1 UNIT/ML-% OPHTHALMIC SOLUTION 1 rui p in affected eye every 3 hours while awake x 7 days POLYTRIM 1000 0-0.1 UNIT/ML-% OPHTHALMIC SOLUTION 958457 POLYMYXIN B-TRIMETHOPRIM Inactive COUMADIN 4 MG ORAL TABLET 1 tablet daily COUMADIN 4 MG ORAL TABLET 359563 WARFARIN SODIUM Inactive CLONIDINE HCL 0.1 MG ORAL TABLET 1 po bid 7 days, then 1/2 t ab po bid 7 days CLONIDINE HCL 0.1 MG ORAL TABLET 863384 CLONIDIN E HCL Inactive ALLOPURINOL 300 MG ORAL TABLET Take 1 tablet by mouth daily 2012 ALLOPURINOL 300 MG ORAL TABLET 389883 ALLOPURINOL I nactive MECLIZINE HCL 25 MG ORAL TABLET 1 po tid 3 days, then 1/2 ta b tid 3 days MECLIZINE HCL 25 MG ORAL TABLET 558919 MECLIZINE HCL Inactive AMLODIPINE BESYLATE 5 MG ORAL TABLET 1 tablet by mouth daily 201 01/20/04 AMLODIPINE BESYLATE 5 MG ORAL TABLET 920717 AMLODIPINE BESYLATE Inactive KEFLEX 500 MG ORAL CAPSULE 1 po qid K EFLEX 500 MG ORAL CAPSULE 332349 CEPHALEXIN Inactive COLCRYS 0.6 MG ORAL TABLET 1 tab qid prn gout COLCRYS 0.6 MG ORAL TABLET 439242 COLCHICINE Inactive FAMOTIDINE 20 MG ORAL TABLET by mouth twice a day 2017 FAMOTIDINE 20 MG ORAL TABLET 468991 FAMOTIDINE Inactive GLIMEPIRIDE 2 MG ORAL TABLET 1 po BID GLIMEPIRIDE 2 MG ORAL TABLET 507393 GLIMEPIRIDE Inactive LOVENOX 100 MG/ML SUBCUTANEOUS SOLUTION One injection twice a da y LOVENOX 100 MG/ML SUBCUTANEOUS SOLUTION 183578 ENOXAPAR IN SODIUM Inactive PREDNISONE 20 MG ORAL TABLET 2 tabs daily for 3 days 1 tab d aily for 3 days PREDNISONE 20 MG ORAL TABLET 877541 PREDNISONE Inactive Advance Directives Directive Description Start [...] mg/dL Encounters Code Encounter Date Provider Facility CPT-96929 [id number] Vst-Est Level IV 16:21:22 CDT Stephy Ambrose [facility] CPT-43276 Level 3 Est. Patient 15:18:36 CDT Becky anderson [facility] CPT-92884 [id number] Vst-Est Level IV 10:06:35 CDT Bru robinson Abmrose [facility]-42867 63082-Arq Vst-Est Level IV 10:52:00 INSTRUMENT MAKER APPRENTICE Stephy Ambrose [facility] CPT-58695 Level 3 Est. Patient 18:25:[address] [facility] CPT-84837 Level 3 Est. Patient 19:43:[address] [facility] CPT-97886 Level 4 Est. Patient 09:30:[address] [facility] CPT-21755 Level 3 Est. Patient 15:10:14 CDT Jeo Gomez razell [facility] CPT-58304 Level 3 Est. Patient 15:03:46 CDT Devonsonya [facility] [id number] Level 3 Est. Patient 14:21:06 CDT Mitch Arnol Castellano ee [facility] CPT-33094 Level 3 Est. Patient 14:52:06 CDT Devonsonya [facility] [id number] Level 3 Est. Patient 09:34:30 INSTRUMENT MAKER APPRENTICE Mitch W L ee [facility] CPT-37792 Level 3 Est. Patient 09:37:15 CDT Mitch W L ee [facility]-53007 Level 3 Est. Patient 17:01:00 INSTRUMENT MAKER APPRENTICE Mitch Ambrose L ee [facility] CPT-54774 Level 3 Est. Patient 13:53:19 INSTRUMENT MAKER APPRENTICE Mitch W L janelle [facility] CPT-65694 Level 3 Est. Patient 19:19:37 INSTRUMENT MAKER APPRENTICE Mitch W L ee [facility] CPT-45143 Level 3 Est. Patient 13:25:53 INSTRUMENT MAKER APPRENTICE Tavo toure MD [facility]-25895 Level 3 Est. Patient 18:17:28 CDT Mitch W L ee [facility] CPT-59247 Level 3 Est. Patient 15:22:57 CDT Mitch W L ee [facility]-25296 Level 3 Est. Patient 18:21:50 CDT Mitch W L ee [facility] CPT-33158 Level 3 Est. Patient 18:20:38 CDT Mitch W L ee [facility]-03544 Level 3 Est. Patient 15:37:55 CDT Mitch W L ee [facility] CPT-42693 Level 2 Est. Patient 15:54:44 CDT Carmine benton MD [facility]-19665 Level 3 Est. Patient 21:46:01 INSTRUMENT MAKER APPRENTICE Mitch Arnol Nona luis [facility] CPT-65701 Level 3 Est. Patient 22:15:50 CDT Mitch Arnol Nona luis [facility] CPT-83027 Level 3 Est. Patient 10:48:15 CDT Mitch luis [facility] CPT-89546 Level 3 Est. Patient 23:20:57 CDT Tavo toure MD [facility] CPT-24410 Level 3 Est. Patient 16:26:13 CDT Mitch luis [facility] Procedures Code Procedure Name Date Entry Date Standard Desc ription CPT-84228 Venipuncture Draw Fee 17:04:55 CDT CPT-27878 Venipuncture Draw Fee 17:20:50 CDT CPT-26163 Venipuncture Draw Fee 18:00:48 CDT CPT-57161 Venipuncture Draw Fee 14:56:20 CDT CPT-JTINJ Asp/Joint Injection 18:47:02 CDT CPT-09256 Venipuncture Draw Fee 09:26:17 CDT CPT-37610 PT/INR - LAB USE ONLY 13:32:49 INSTRUMENT MAKER APPRENTICE CPT-22147 Venipuncture Draw Fee 13:32:49 INSTRUMENT MAKER APPRENTICE CPT-30322 PT/INR - LAB USE ONLY 10:34:49 INSTRUMENT MAKER APPRENTICE CPT-17887 Venipuncture Draw Fee 10:34:48 INSTRUMENT MAKER APPRENTICE CPT-16994 PT/INR - LAB USE ONLY 09:22:03 INSTRUMENT MAKER APPRENTICE CPT-96153 Venipuncture Draw Fee 09:22:02 INSTRUMENT MAKER APPRENTICE CPT-22951 Hemoccult IFOBT - LAB USE ONLY 10:27:22 CDT CPT-24480 Venipuncture Draw Fee 08:27:08 CDT CPT-25961 Liver Profile - LAB USE ONLY 08:27:07 CDT 2 CPT-02059 Microalbumin - LAB USE ONLY 08:27:07 CDT 20 25/05/09 CPT-41481 PT/INR - LAB USE ONLY 08:27:07 CDT CPT-72681 HGBA1C - LAB USE ONLY 08:27:07 CDT CPT-32153 CBC - LAB USE ONLY 08:27:07 CDT CPT-28920 Venipuncture Draw Fee 11:09:14 CDT CPT-50390 Venipuncture Draw Fee 08:32:21 INSTRUMENT MAKER APPRENTICE CPT-31814 Venipuncture Draw Fee 09:38:56 INSTRUMENT MAKER APPRENTICE CPT-22884 No Charge Offi Visit 21:36:07 CDT 1 CPT-45720 Venipuncture Draw Fee 10:13:28 INSTRUMENT MAKER APPRENTICE CPT-71031 Venipuncture Draw Fee 08:31:11 CDT CPT-49667 Aspir/Inject Med Joint 18:17:28 CDT CPT-91245 Venipuncture Draw Fee 10:13:30 CDT CPT-84171 Venipuncture Draw Fee 08:31:43 INSTRUMENT MAKER APPRENTICE CPT-JTINJ Joint Injection 18:34:50 CDT CPT-02905 Knee 3V 12:25:09 CDT CPT-27855 Venipuncture Draw Fee 12:15:57 CDT CPT-060 Medical Surveillance Exam 21:31:43 CDT 2011 CPT-46095 Venipuncture Draw Fee 08:32:05 INSTRUMENT MAKER APPRENTICE CPT-OV Office Visit 18:19:06 CDT
--- OUTSIDE RECORDS SUMMARY | 2020-01-18 13:48 | XMS REPORT | Clinical Summary ---
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 TENDER Active PREDNISONE 20 MG ORAL TABLET 2 tabs daily for 3 days 1 tab d aily for 3 days PREDNISONE 24644315679 No Longer Active Becky Sell [employer] T[employer] TENDER Active MINOXIDIL 2.5 MG ORAL TABLET 1 tablet twice daily for high b lood pressure MINOXIDIL 98001915550 Active Mitch Urbina DO Ac tive METFORMIN HCL ER 500 MG ORAL TABLET EXTENDED RELEASE 2 4 HOUR 2 tablets by mouth twice daily METFORMIN HCL 98960319070 Active Mitch Urbina DO Active GLIMEPIRIDE 4 MG ORAL TABLET 1 tablet by mouth twice daily f or diabetes GLIMEPIRIDE 42908480880 Active Mitch Urbina DO Active GLIMEPIRIDE 2 MG ORAL TABLET 1 po BID GLIMEPI RIDE 32506192037 No Longer Active Mitch Urbina DO Active AMLODIPINE BESYLATE 5 MG ORAL TABLET 1 tablet by mouth daily AMLODIPINE BESYLATE 46201075375 Active Mitch Urbina DO Active PROVIGIL 200 MG ORAL TABLET 1/2 tab po q day MODA FINIL 97482634459 Active Renee Oconnor LPN Active FAMOTIDINE 20 MG ORAL TABLET by mouth twice a day 2017 FAMOTIDINE 65536593746 No Longer Active Mitch Urbina DO Active COLCRYS 0.6 MG ORAL TABLET 1 tab qid prn gout C OLCHICINE 01394663314 No Longer Active Mitch Urbina DO Active KEFLEX 500 MG ORAL CAPSULE 1 po qid CEPHALEXI N 33791411399 No Longer Active Mitch Urbina DO Active AMLODIPINE BESYLATE 5 MG ORAL TABLET 1 tablet by mouth daily 201 01/20/04 AMLODIPINE BESYLATE 16880518525 No Longer Active Joe fulton APRN Active MITIGARE 0.6 MG ORAL CAPSULE 2 capsules at onset of go ut pain, then take one capsule at 1 hour if symptoms persist. COLCHICINE 59 558764423 Active Mitch Urbina DO Active COUMADIN 1 MG ORAL TABLET 2 tabs orally daily with the 5mg tab to equal 7mg daily WARFARIN SODIUM 50960157047 Active Renee Oconnor LPN Active INVOKANA 100 MG ORAL TABLET 1 tablet orally daily CANAGLIFLOZIN 41180977934 Active Mitch Urbina DO Active MECLIZINE HCL 25 MG ORAL TABLET 1 po tid 3 days, then 1/2 ta b tid 3 days MECLIZINE HCL 41630265178 No Longer Active Corey SEGURA Active ALLOPURINOL 300 MG ORAL TABLET Take 1 tablet by mouth daily 2012 ALLOPURINOL 83402935953 No Longer Active Corey SEGURA Active CLONIDINE HCL 0.1 MG ORAL TABLET 1 po bid 7 days, then 1/2 t ab po bid 7 days CLONIDINE HCL 53947297218 No Longer Active Corey SEGURA Active COUMADIN 5 MG ORAL TABLET 1 tab PO daily WARFAR IN SODIUM 85493288718 Active Renee Oconnor LPN Active COUMADIN 4 MG ORAL TABLET 1 tablet daily WARFAR IN SODIUM 38640560358 No Longer Active Corey SEGURA Active POLYTRIM 64889-3.1 UNIT/ML-% OPHTHALMIC SOLUTION 1 rui p in affected eye every 3 hours while awake x 7 days POLYMYXIN B-TRIMETHOP RIM 70358235982 No Longer Active Corey SEGURA Active LOSARTAN POTASSIUM-HCTZ 100-12.5 MG ORAL TABLET 1 by m outh daily for high blood pressure LOSARTAN POTASSIUM-HCTZ 23346081411 No Longer A ctive Mitch Urbina DO Active LISINOPRIL-HYDROCHLOROTHIAZIDE 20-12.5 MG ORAL TABLET 1 tab by m outh daily LISINOPRIL-HYDROCHLOROTHIAZIDE 54871278117 No Longer Active Mitch Urbina DO Active LISINOPRIL 20 MG ORAL TABLET 1 tab po at HS LIS INOPRIL 70101227354 No Longer Active Mitch Urbina DO Active COUMADIN 5 MG ORAL TABLET 1 by mouth every other day 2 WARFARIN SODIUM 27672776371 No Longer Active Mitch Urbina DO Active COUMADIN 6 MG ORAL TABLET 1 by mouth every other day 2 WARFARIN SODIUM 23658053437 No Longer Active Mitch Urbina DO Active SIMVASTATIN 40 MG ORAL TABLET 1 tab daily at bedtime SIMVASTATIN 61309725339 Active Maria Rivas RN Active SIMVASTATIN 20 MG ORAL TABLET 1 tab daily at bedtime 2 SIMVASTATIN 55343039956 No Longer Active Mitch Urbina DO Active LOVENOX 100 MG/ML SUBCUTANEOUS SOLUTION One injection twice a da y ENOXAPARIN SODIUM 27528210340 No Longer Active Carmine Yusuf MD Active JANUVIA 50 MG ORAL TABLET Take one by mouth daily SITAGLIPTIN PHOSPHATE 80011053785 Active Renee Oconnor LPN Active JANUVIA 100 MG ORAL TABLET 1/2 by mouth every day 2011 SITAGLIPTIN PHOSPHATE 60263830853 No Longer Active Bijal Segal RN Acti ve METFORMIN HCL 500 MG ORAL TABLET 2 by mouth twice daily METFORMIN HCL 18323672280 No Longer Active Renee Oconnor LPN Active COLCRYS 0.6 MG ORAL TABLET 1 po q 6 hours prn gout pain COLCHICINE 88171803882 No Longer Active Camila Reese Active LISINOPRIL 5 MG ORAL TABLET 1 by mouth every day 11/17 LISINOPRIL 48689652519 No Longer Active Nguyen Ana Active KLOR-CON 20 MEQ ORAL PACKET Take one by mouth daily 09/10/08 POTASSIUM CHLORIDE 77325495964 No Longer Active Nguyen Ana Active FUROSEMIDE 40 MG ORAL TABLET 1 by mouth daily F UROSEMIDE 07889525712 No Longer Active Nguyen Ana Active PROVIGIL 100 MG ORAL TABLET Take one by mouth daily 08/20/04 MODAFINIL 84852622833 No Longer Active Mitch Urbina DO Active BACTRIM DS 800-160 MG ORAL TABLET 1 tab by mouth twice daily 201 10/19/09 TRIMETHOPRIM-SULFAMETHOXAZOLE 98193024705 No Longer Active Elian Hays MD Active ADULT ASPIRIN LOW STRENGTH 81 MG ORAL TABLET DISINTEGR ATING 1 by mouth every daily ASPIRIN 21131366070 Active Mitch Urbina DO Ac tive METOPROLOL TARTRATE 50 MG ORAL TABLET 1 by mouth twice daily METOPROLOL TARTRATE 88751065795 Active Maria Rivas RN Ac tive BACTRIM DS 800-160 MG ORAL TABLET 1 tab by mouth twice daily 201 10/19/09 BACTRIM DS 800-160 MG ORAL TABLET 023815 TRIMETHOPRIM-SULFAMETHOXAZOLE Inactive PROVIGIL 100 MG ORAL TABLET Take one by mouth daily 08/20/04 PROVIGIL 100 MG ORAL TABLET 294185 MODAFINIL Inactive FUROSEMIDE 40 MG ORAL TABLET 1 by mouth daily FUROSEMIDE 40 MG ORAL TABLET 922164 FUROSEMIDE Inactive KLOR-CON 20 MEQ ORAL PACKET Take one by mouth daily 09/10/08 KLOR- CON 20 MEQ ORAL PACKET 8317636 POTASSIUM CHLORIDE Inactive LISINOPRIL 5 MG ORAL TABLET 1 by mouth every day 11/17 LISINOPRIL 5 MG ORAL TABLET 206115 LISINOPRIL Inactive COLCRYS 0.6 MG ORAL TABLET 1 po q 6 hours prn gout pain COLCRYS 0.6 MG ORAL TABLET 315239 COLCHICINE Inactive JANUVIA 100 MG ORAL TABLET 1/2 by mouth every day 2011 JANUVIA 100 MG ORAL TABLET SITAGLIPTIN PHOSPHATE Inactive SIMVASTATIN 20 MG ORAL TABLET 1 tab daily at bedtime 2 SIMVASTATIN 20 MG ORAL TABLET 030687 SIMVASTATIN Inactive COUMADIN 6 MG ORAL TABLET 1 by mouth every other day 2 COUMADIN 6 MG ORAL TABLET 572026 WARFARIN SODIUM Inactive COUMADIN 5 MG ORAL TABLET 1 by mouth every other day 2 COUMADIN 5 MG ORAL TABLET 395672 WARFARIN SODIUM Inactive LISINOPRIL 20 MG ORAL TABLET 1 tab po at HS LISINOPRIL 20 MG ORAL TABLET 629218 LISINOPRIL Inactive LISINOPRIL-HYDROCHLOROTHIAZIDE 20-12.5 MG ORAL TABLET 1 tab by m outh daily LISINOPRIL-HYDROCHLOROTHIAZIDE 20-12.5 MG ORAL TABLET 446791 LISINOPRIL-HYDROCHLOROTHIAZIDE Inactive POLYTRIM 66168-5.1 UNIT/ML-% OPHTHALMIC SOLUTION 1 rui p in affected eye every 3 hours while awake x 7 days POLYTRIM 1000 0-0.1 UNIT/ML-% OPHTHALMIC SOLUTION 917457 POLYMYXIN B-TRIMETHOPRIM Inactive COUMADIN 4 MG ORAL TABLET 1 tablet daily COUMADIN 4 MG ORAL TABLET 948463 WARFARIN SODIUM Inactive CLONIDINE HCL 0.1 MG ORAL TABLET 1 po bid 7 days, then 1/2 t ab po bid 7 days CLONIDINE HCL 0.1 MG ORAL TABLET 683399 CLONIDIN E HCL Inactive ALLOPURINOL 300 MG ORAL TABLET Take 1 tablet by mouth daily 2012 ALLOPURINOL 300 MG ORAL TABLET 771565 ALLOPURINOL I nactive MECLIZINE HCL 25 MG ORAL TABLET 1 po tid 3 days, then 1/2 ta b tid 3 days MECLIZINE HCL 25 MG ORAL TABLET 840280 MECLIZINE HCL Inactive AMLODIPINE BESYLATE 5 MG ORAL TABLET 1 tablet by mouth daily 201 01/20/04 AMLODIPINE BESYLATE 5 MG ORAL TABLET 833184 AMLODIPINE BESYLATE Inactive KEFLEX 500 MG ORAL CAPSULE 1 po qid K EFLEX 500 MG ORAL CAPSULE 350791 CEPHALEXIN Inactive COLCRYS 0.6 MG ORAL TABLET 1 tab qid prn gout COLCRYS 0.6 MG ORAL TABLET 521447 COLCHICINE Inactive FAMOTIDINE 20 MG ORAL TABLET by mouth twice a day 2017 FAMOTIDINE 20 MG ORAL TABLET 451518 FAMOTIDINE Inactive GLIMEPIRIDE 2 MG ORAL TABLET 1 po BID GLIMEPIRIDE 2 MG ORAL TABLET 619244 GLIMEPIRIDE Inactive LOVENOX 100 MG/ML SUBCUTANEOUS SOLUTION One injection twice a da y LOVENOX 100 MG/ML SUBCUTANEOUS SOLUTION 371434 ENOXAPAR IN SODIUM Inactive PREDNISONE 20 MG ORAL TABLET 2 tabs daily for 3 days 1 tab d aily for 3 days PREDNISONE 20 MG ORAL TABLET 896303 PREDNISONE Inactive Advance Directives Directive Description Start [...] mg/dL Encounters Code Encounter Date Provider Facility CPT-81095 Level 3 Est. Patient 15:18:36 CDT Becky Se ll ANNIE [facility] CPT-11910 [id number] Vst-Est Level IV 10:06:35 CDT Stephy Urbina [facility] CPT-13889 [id number] Vst-Est Level IV 10:52:00 LOGISTICS PROJECT MANAGER Stephy Urbina [facility]-70450 Level 3 Est. Patient 18:25:53 CDT Mitch Ambrose Nona luis [facility] CPT-96889 Level 3 Est. Patient 19:43:34 CDT Mitch Ambrose Nona luis [facility] CPT-25360 Level 4 Est. Patient 09:30:18 CDT Mitch Ambrose Nona luis [facility] CPT-01552 Level 3 Est. Patient 15:10:14 CDT Joe kamara [facility] CPT-98540 Level 3 Est. Patient 15:03:46 CDT Joe Gomez courtangela [facility] CPT-39557 Level 3 Est. Patient 14:21:06 CDT Mitch Ambrose Nona luis [facility] CPT-95866 Level 3 Est. Patient 14:52:06 CDT Joe Gomez courtangela [facility] CPT-87419 Level 3 Est. Patient 09:34:30 LOGISTICS PROJECT MANAGER Mitch luis [facility] CPT-58964 Level 3 Est. Patient 09:37:15 CDT Mitch luis [facility] CPT-42833 Level 3 Est. Patient 17:01:00 LOGISTICS PROJECT MANAGER Mitch luis [facility] CPT-41605 Level 3 Est. Patient 13:53:19 LOGISTICS PROJECT MANAGER Mitch luis [facility] CPT-40773 Level 3 Est. Patient 19:19:37 LOGISTICS PROJECT MANAGER Mitch luis [facility] CPT-67734 Level 3 Est. Patient 13:25:53 LOGISTICS PROJECT MANAGER Tavo toure MD [facility]-44758 Level 3 Est. Patient 18:17:28 CDT Mitch luis [facility] CPT-65021 Level 3 Est. Patient 15:22:57 CDT Mitch luis [facility] CPT-49745 Level 3 Est. Patient 18:21:50 CDT Mitch luis [facility] CPT-29528 Level 3 Est. Patient 18:20:38 CDT Mitch luis [facility] CPT-39209 Level 3 Est. Patient 15:37:55 CDT Mitch luis [facility] CPT-65718 Level 2 Est. Patient 15:54:44 CDT Carmine benton MD [facility]-61707 Level 3 Est. Patient 21:46:01 LOGISTICS PROJECT MANAGER Mitch luis [facility] CPT-08210 Level 3 Est. Patient 22:15:50 CDT Mitch luis [facility] CPT-52206 Level 3 Est. Patient 10:48:15 CDT Mitch luis [facility] CPT-54370 Level 3 Est. Patient 23:20:57 CDT Tavo toure MD [facility] CPT-71720 Level 3 Est. Patient 16:26:13 CDT Mitch luis [facility] Procedures Code Procedure Name Date Entry Date Standard Desc ription CPT-54904 Venipuncture Draw Fee 17:04:55 CDT CPT-68299 Venipuncture Draw Fee 17:20:50 CDT CPT-16459 Venipuncture Draw Fee 18:00:48 CDT CPT-57323 Venipuncture Draw Fee 14:56:20 CDT CPT-JTINJ Asp/Joint Injection 18:47:02 CDT CPT-50394 Venipuncture Draw Fee 09:26:17 CDT CPT-18106 PT/INR - LAB USE ONLY 13:32:49 LOGISTICS PROJECT MANAGER CPT-53486 Venipuncture Draw Fee 13:32:49 LOGISTICS PROJECT MANAGER CPT-11633 PT/INR - LAB USE ONLY 10:34:49 LOGISTICS PROJECT MANAGER CPT-13286 Venipuncture Draw Fee 10:34:48 LOGISTICS PROJECT MANAGER CPT-66878 PT/INR - LAB USE ONLY 09:22:03 LOGISTICS PROJECT MANAGER CPT-22667 Venipuncture Draw Fee 09:22:02 LOGISTICS PROJECT MANAGER CPT-08310 Hemoccult IFOBT - LAB USE ONLY 10:27:22 CDT CPT-33516 Venipuncture Draw Fee 08:27:08 CDT CPT-03342 Liver Profile - LAB USE ONLY 08:27:07 CDT 2 CPT-88435 Microalbumin - LAB USE ONLY 08:27:07 CDT 20 25/05/09 CPT-35647 PT/INR - LAB USE ONLY 08:27:07 CDT CPT-52538 HGBA1C - LAB USE ONLY 08:27:07 CDT CPT-70479 CBC - LAB USE ONLY 08:27:07 CDT CPT-31343 Venipuncture Draw Fee 11:09:14 CDT CPT-50625 Venipuncture Draw Fee 08:32:21 LOGISTICS PROJECT MANAGER CPT-91205 Venipuncture Draw Fee 09:38:56 LOGISTICS PROJECT MANAGER CPT-10878 No Charge Offi Visit 21:36:07 CDT 1 CPT-32831 Venipuncture Draw Fee 10:13:28 LOGISTICS PROJECT MANAGER CPT-87654 Venipuncture Draw Fee 08:31:11 CDT CPT-95228 Aspir/Inject Med Joint 18:17:28 CDT CPT-47752 Venipuncture Draw Fee 10:13:30 CDT CPT-46929 Venipuncture Draw Fee 08:31:43 LOGISTICS PROJECT MANAGER CPT-JTINJ Joint Injection 18:34:50 CDT CPT-40737 Knee 3V 12:25:09 CDT CPT-32993 Venipuncture Draw Fee 12:15:57 CDT CPT-060 Medical Surveillance Exam 21:31:43 CDT 2011 CPT-56290 Venipuncture Draw Fee 08:32:05 LOGISTICS PROJECT MANAGER CPT-OV Office Visit 18:19:06 CDT
--- OUTSIDE RECORDS SUMMARY | 2020-01-18 13:48 | XMS REPORT | Clinical Summary ---
[...] prophylactic vaccin ation and inoculation against influenza CELLULITIS, GROIN, LEFT ICD-682.2 Inactive Bruc e Arnol Urbina DO SEROMA ICD-998.13 Inactive Mitch Urbina DO REACTIVE HYPOGLYCEMIA ICD-251.2 Inactive Mitch Urbina DO LONG-TERM (CURRENT) USE OF ANTICOAGULANTS ICD-V58.61 Inactive Mitch Arnol Urbina DO EDEMA ICD-782.3 Inactive Mitch Urbina DO DIZZINESS ICD-780.4 Inactive Mitch Urbina DO 10/23 GOUT, RIGHT WRIST ICD-274.9 Inactive Mitch Ambrose Le e DO BRUISE ICD-924.9 Inactive Mitch Ambrose Carlitos DO OLECRANON BURSITIS, RIGHT ICD-726.33 Inactive Mitch Urbina DO UNSPECIFIED ANEMIA ICD-285.9 Inactive Mitch Ambrose L ee DO Malaise and fatigue ICD-780.79 Inactive Mitch Urbina DO Cough, chronic ICD-786.2 Inactive Mitch Urbina D O Sebaceous cyst, infected ICD-706.2 Inactive Mitch Ambrose Carlitos Cellulitis ICD-682.9 Inactive Mitch Arnol Carlitos 10/23 Influenza Vaccination for Prophylaxis ICD-V04.81 9 Inactive Bhumi Robles Medication List Medication Instructions Start Date Stop Date Generic Name NDC Status Provider Patient Instruction DOXAZOSIN MESYLATE 2 MG ORAL TABLET 1 po q day for pr ostate and blood pressure DOXAZOSIN MESYLATE 02692617610 Active Mitch Urbina DO Active LOSARTAN TABS 100MG TAKE 1 TABLET DAILY FOR BLOOD PRESSURE LOSARTAN POTASSIUM 92194599264 Active Maria Rivas RN Active FLUTICASONE PROPIONATE 50 MCG/ACT NASAL SUSPENSION 1 s pray each nostril twice daily for 1 week, then once daily FLUTICASONE VA OPIONATE 63408123929 Active 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 PREDNISONE 20 MG ORAL TABLET 2 tabs daily for 3 days 1 tab d aily for 3 days PREDNISONE 11859747511 No Longer Active 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 MINOXIDIL 2.5 MG ORAL TABLET 1 tablet twice daily for high b lood pressure MINOXIDIL 44555022222 Active Mitch Urbina DO Ac tive METFORMIN HCL ER 500 MG ORAL TABLET EXTENDED RELEASE 2 4 HOUR 2 tablets by mouth twice daily METFORMIN HCL 74041848533 Active Mitch Urbina DO Active GLIMEPIRIDE 4 MG ORAL TABLET 1 tablet by mouth twice daily f or diabetes GLIMEPIRIDE 65415540979 Active Mitch Urbina DO Active GLIMEPIRIDE 2 MG ORAL TABLET 1 po BID GLIMEPI RIDE 78340465754 No Longer Active Mitch Urbina DO Active AMLODIPINE BESYLATE 5 MG ORAL TABLET 1 tablet by mouth daily AMLODIPINE BESYLATE 06051991289 Active Mitch Arnol Carlitos Active PROVIGIL 200 MG ORAL TABLET 1/2 tab po q day MODA FINIL 27177093385 Active Renee Oconnor LPN Active FAMOTIDINE 20 MG ORAL TABLET by mouth twice a day 2017 FAMOTIDINE 15215576257 No Longer Active Mitch Ambrose Carlitos VELASQUEZ Active COLCRYS 0.6 MG ORAL TABLET 1 tab qid prn gout C OLCHICINE 60639853778 No Longer Active Mitch Urbina DO Active KEFLEX 500 MG ORAL CAPSULE 1 po qid CEPHALEXI N 29122442360 No Longer Active Mitch Arnol Urbina Active AMLODIPINE BESYLATE 5 MG ORAL TABLET 1 tablet by mouth daily 201 01/20/04 AMLODIPINE BESYLATE 14276866318 No Longer Active Joe fulton APRN Active MITIGARE 0.6 MG ORAL CAPSULE 2 capsules at onset of go ut pain, then take one capsule at 1 hour if symptoms persist. COLCHICINE 59 134614668 Active Mitch Urbina DO Active COUMADIN 1 MG ORAL TABLET 2 tabs orally daily with the 5mg tab to equal 7mg daily WARFARIN SODIUM 92794755325 Active Renee Oconnor LPN Active INVOKANA 100 MG ORAL TABLET 1 tablet orally daily CANAGLIFLOZIN 52993128232 Active Mitch Urbina DO Active MECLIZINE HCL 25 MG ORAL TABLET 1 po tid 3 days, then 1/2 ta b tid 3 days MECLIZINE HCL 88193785369 No Longer Active Corey SEGURA Active ALLOPURINOL 300 MG ORAL TABLET Take 1 tablet by mouth daily 2012 ALLOPURINOL 10537154938 No Longer Active Corey SEGURA Active CLONIDINE HCL 0.1 MG ORAL TABLET 1 po bid 7 days, then 1/2 t ab po bid 7 days CLONIDINE HCL 49490810983 No Longer Active Corey SEGURA Active COUMADIN 5 MG ORAL TABLET 1 tab PO daily WARFAR IN SODIUM 36271286815 Active Renee Oconnor LPN Active COUMADIN 4 MG ORAL TABLET 1 tablet daily WARFAR IN SODIUM 73377310752 No Longer Active Corey SEGURA Active POLYTRIM 29996-9.1 UNIT/ML-% OPHTHALMIC SOLUTION 1 rui p in affected eye every 3 hours while awake x 7 days POLYMYXIN B-TRIMETHOP RIM 73243176374 No Longer Active Corey SEGURA Active LOSARTAN POTASSIUM-HCTZ 100-12.5 MG ORAL TABLET 1 by m outh daily for high blood pressure LOSARTAN POTASSIUM-HCTZ 12092686729 No Longer A ctive Mitch Urbina DO Active LISINOPRIL-HYDROCHLOROTHIAZIDE 20-12.5 MG ORAL TABLET 1 tab by m outh daily LISINOPRIL-HYDROCHLOROTHIAZIDE 68451956099 No Longer Active Mitch Urbina DO Active LISINOPRIL 20 MG ORAL TABLET 1 tab po at HS LIS INOPRIL 83983162735 No Longer Active Mitch Urbina DO Active COUMADIN 5 MG ORAL TABLET 1 by mouth every other day 2 WARFARIN SODIUM 82170121493 No Longer Active Mitch Urbina DO Active COUMADIN 6 MG ORAL TABLET 1 by mouth every other day 2 WARFARIN SODIUM 20294863117 No Longer Active Mitch Urbina DO Active SIMVASTATIN 40 MG ORAL TABLET 1 tab daily at bedtime SIMVASTATIN 21375857014 Active Maria Rivas RN Active SIMVASTATIN 20 MG ORAL TABLET 1 tab daily at bedtime 2 SIMVASTATIN 03892971087 No Longer Active Mitch Urbina DO Active LOVENOX 100 MG/ML SUBCUTANEOUS SOLUTION One injection twice a da y ENOXAPARIN SODIUM 17288291867 No Longer Active Carmine Yusuf MD Active JANUVIA 50 MG ORAL TABLET Take one by mouth daily SITAGLIPTIN PHOSPHATE 94233519002 Active Renee Oconnor LPN Active JANUVIA 100 MG ORAL TABLET 1/2 by mouth every day 2011 SITAGLIPTIN PHOSPHATE 76738150982 No Longer Active Bijal Segal RN Acti ve METFORMIN HCL 500 MG ORAL TABLET 2 by mouth twice daily METFORMIN HCL 81014502782 No Longer Active Renee Oconnor LPN Active COLCRYS 0.6 MG ORAL TABLET 1 po q 6 hours prn gout pain COLCHICINE 79610601871 No Longer Active Camila Reese Active LISINOPRIL 5 MG ORAL TABLET 1 by mouth every day 11/17 LISINOPRIL 21433694344 No Longer Active Nguyen Perez Active KLOR-CON 20 MEQ ORAL PACKET Take one by mouth daily 09/10/08 POTASSIUM CHLORIDE 05793683312 No Longer Active Nguyen Perez Active FUROSEMIDE 40 MG ORAL TABLET 1 by mouth daily F UROSEMIDE 34038096017 No Longer Active Nguyen Perez Active PROVIGIL 100 MG ORAL TABLET Take one by mouth daily 08/20/04 MODAFINIL 97645475005 No Longer Active Mitch Urbina DO Active BACTRIM DS 800-160 MG ORAL TABLET 1 tab by mouth twice daily 201 10/19/09 TRIMETHOPRIM-SULFAMETHOXAZOLE 08093357486 No Longer Active C alberto Hays MD Active ADULT ASPIRIN LOW STRENGTH 81 MG ORAL TABLET DISINTEGR ATING 1 by mouth every daily ASPIRIN 51691123107 Active Mitch Urbina DO Ac tive METOPROLOL TARTRATE 50 MG ORAL TABLET 1 by mouth twice daily METOPROLOL TARTRATE 74734001539 Active Maria Rivas RN Ac tive BACTRIM DS 800-160 MG ORAL TABLET 1 tab by mouth twice daily 201 10/19/09 BACTRIM DS 800-160 MG ORAL TABLET 861911 TRIMETHOPRIM-SULFAMETHOXAZOLE Inactive PROVIGIL 100 MG ORAL TABLET Take one by mouth daily 08/20/04 PROVIGIL 100 MG ORAL TABLET 341303 MODAFINIL Inactive FUROSEMIDE 40 MG ORAL TABLET 1 by mouth daily FUROSEMIDE 40 MG ORAL TABLET 296402 FUROSEMIDE Inactive KLOR-CON 20 MEQ ORAL PACKET Take one by mouth daily 09/10/08 KLOR- CON 20 MEQ ORAL PACKET 3559422 POTASSIUM CHLORIDE Inactive LISINOPRIL 5 MG ORAL TABLET 1 by mouth every day 11/17 LISINOPRIL 5 MG ORAL TABLET 546918 LISINOPRIL Inactive COLCRYS 0.6 MG ORAL TABLET 1 po q 6 hours prn gout pain COLCRYS 0.6 MG ORAL TABLET 278007 COLCHICINE Inactive JANUVIA 100 MG ORAL TABLET 1/2 by mouth every day 2011 JANUVIA 100 MG ORAL TABLET SITAGLIPTIN PHOSPHATE Inactive SIMVASTATIN 20 MG ORAL TABLET 1 tab daily at bedtime 2 SIMVASTATIN 20 MG ORAL TABLET 199637 SIMVASTATIN Inactive COUMADIN 6 MG ORAL TABLET 1 by mouth every other day COUMADIN 6 MG ORAL TABLET 956122 WARFARIN SODIUM Inactive COUMADIN 5 MG ORAL TABLET 1 by mouth every other day COUMADIN 5 MG ORAL TABLET 702264 WARFARIN SODIUM Inactive LISINOPRIL 20 MG ORAL TABLET 1 tab po at HS LISINOPRIL 20 MG ORAL TABLET 405001 LISINOPRIL Inactive LISINOPRIL-HYDROCHLOROTHIAZIDE 20-12.5 MG ORAL TABLET 1 tab by m outh daily LISINOPRIL-HYDROCHLOROTHIAZIDE 20-12.5 MG ORAL TABLET 436693 LISINOPRIL-HYDROCHLOROTHIAZIDE Inactive POLYTRIM 00738-0.1 UNIT/ML-% OPHTHALMIC SOLUTION 1 rui p in affected eye every 3 hours while awake x 7 days POLYTRIM 1000 0-0.1 UNIT/ML-% OPHTHALMIC SOLUTION 204695 POLYMYXIN B-TRIMETHOPRIM Inactive COUMADIN 4 MG ORAL TABLET 1 tablet daily COUMADIN 4 MG ORAL TABLET 023769 WARFARIN SODIUM Inactive CLONIDINE HCL 0.1 MG ORAL TABLET 1 po bid 7 days, then 1/2 t ab po bid 7 days CLONIDINE HCL 0.1 MG ORAL TABLET 503863 CLONIDIN E HCL Inactive ALLOPURINOL 300 MG ORAL TABLET Take 1 tablet by mouth daily 2012 ALLOPURINOL 300 MG ORAL TABLET 263998 ALLOPURINOL I nactive MECLIZINE HCL 25 MG ORAL TABLET 1 po tid 3 days, then 1/2 ta b tid 3 days MECLIZINE HCL 25 MG ORAL TABLET 655362 MECLIZINE HCL Inactive AMLODIPINE BESYLATE 5 MG ORAL TABLET 1 tablet by mouth daily 201 01/20/04 AMLODIPINE BESYLATE 5 MG ORAL TABLET 683529 AMLODIPINE BESYLATE Inactive KEFLEX 500 MG ORAL CAPSULE 1 po qid K EFLEX 500 MG ORAL CAPSULE 586367 CEPHALEXIN Inactive COLCRYS 0.6 MG ORAL TABLET 1 tab qid prn gout COLCRYS 0.6 MG ORAL TABLET 296205 COLCHICINE Inactive FAMOTIDINE 20 MG ORAL TABLET by mouth twice a day 2017 FAMOTIDINE 20 MG ORAL TABLET 853876 FAMOTIDINE Inactive GLIMEPIRIDE 2 MG ORAL TABLET 1 po BID GLIMEPIRIDE 2 MG ORAL TABLET 815236 GLIMEPIRIDE Inactive LOVENOX 100 MG/ML SUBCUTANEOUS SOLUTION One injection twice a da y LOVENOX 100 MG/ML SUBCUTANEOUS SOLUTION 291030 ENOXAPAR IN SODIUM Inactive PREDNISONE 20 MG ORAL TABLET 2 tabs daily for 3 days 1 tab d aily for 3 days PREDNISONE 20 MG ORAL TABLET 028614 PREDNISONE Inactive Advance Directives Directive Description Start [...] 11 .6-14.8 platelet count 256 10^3/MM^3 10*3/mm3 147-524 6022/03/29 mean corpuscular volume, RBC 85 fL 80-97 [...] mg/dL Encounters Code Encounter Date Provider Facility CPT-69681 53436-Hls Vst-Est Level IV 16:21:22 CDT Bru robinson Ambrose [facility] CPT-00120 Level 3 Est. Patient 15:18:36 CDT Becky anderson [facility] CPT-05581 34817-Ucc Vst-Est Level IV 10:06:35 CDT Bru robinson Ambrose [facility] CPT-38052 59410-Ghy Vst-Est Level IV 10:52:00 INSURANCE CLAIMS ASSISTANT Stephy Ambrose [facility] CPT-74298 Level 3 Est. Patient 18:25:53 CDT Mitch luis [facility] CPT-12297 Level 3 Est. Patient 19:43:34 CDT Mitch luis [facility] CPT-05953 Level 4 Est. Patient 09:30:18 CDT Mitch Castellano ee [facility] CPT-20140 Level 3 Est. Patient 15:10:14 CDT Devonjustincarlitos kamara [facility]-24853 Level 3 Est. Patient 15:03:46 CDT Joe kamara [facility] CPT-49020 Level 3 Est. Patient 14:21:06 CDT Mitch Ambrose L ee [facility]-92114 Level 3 Est. Patient 14:52:06 CDT Joe Jason kamara [facility] CPT-70438 Level 3 Est. Patient 09:34:30 INSURANCE CLAIMS ASSISTANT Mitch Ambrose L ee [facility]-11678 Level 3 Est. Patient 09:37:15 CDT Mitch Ambrose L ee [facility] CPT-41636 Level 3 Est. Patient 17:01:00 INSURANCE CLAIMS ASSISTANT Mitch W L ee [facility] CPT-29267 Level 3 Est. Patient 13:53:19 INSURANCE CLAIMS ASSISTANT Mitch W L ee [facility] CPT-12525 Level 3 Est. Patient 19:19:37 INSURANCE CLAIMS ASSISTANT Mitch W L ee [facility] CPT-42629 Level 3 Est. Patient 13:25:53 INSURANCE CLAIMS ASSISTANT Tavo toure MD [facility]-12530 Level 3 Est. Patient 18:17:28 CDT Mitch W L ee [facility] CPT-43264 Level 3 Est. Patient 15:22:57 CDT Mitch W L ee [facility] CPT-77351 Level 3 Est. Patient 18:21:50 CDT Mitch W L ee [facility] CPT-40605 Level 3 Est. Patient 18:20:38 CDT Mitch W L ee [facility] CPT-59240 Level 3 Est. Patient 15:37:55 CDT Mitch W L ee [facility] CPT-16548 Level 2 Est. Patient 15:54:44 CDT Carmine benton MD [facility] CPT-02486 Level 3 Est. Patient 21:46:01 INSURANCE CLAIMS ASSISTANT Mitch luis [facility] CPT-79096 Level 3 Est. Patient 22:15:50 CDT Mitch luis [facility] CPT-45102 Level 3 Est. Patient 10:48:15 CDT Mitch luis [facility] CPT-91748 Level 3 Est. Patient 23:20:57 CDT Tavo toure MD [facility] CPT-41911 Level 3 Est. Patient 16:26:13 CDT Mitch luis [facility] Procedures Code Procedure Name Date Entry Date Standard Desc ription CPT-41751 Venipuncture Draw Fee 17:04:55 CDT CPT-23751 Venipuncture Draw Fee 17:20:50 CDT CPT-13256 Venipuncture Draw Fee 18:00:48 CDT CPT-42562 Venipuncture Draw Fee 14:56:20 CDT CPT-JTINJ Asp/Joint Injection 18:47:02 CDT CPT-44038 Venipuncture Draw Fee 09:26:17 CDT CPT-39535 PT/INR - LAB USE ONLY 13:32:49 INSURANCE CLAIMS ASSISTANT CPT-10622 Venipuncture Draw Fee 13:32:49 INSURANCE CLAIMS ASSISTANT CPT-45268 PT/INR - LAB USE ONLY 10:34:49 INSURANCE CLAIMS ASSISTANT CPT-68556 Venipuncture Draw Fee 10:34:48 INSURANCE CLAIMS ASSISTANT CPT-27316 PT/INR - LAB USE ONLY 09:22:03 INSURANCE CLAIMS ASSISTANT CPT-36335 Venipuncture Draw Fee 09:22:02 INSURANCE CLAIMS ASSISTANT CPT-20266 Hemoccult IFOBT - LAB USE ONLY 10:27:22 CDT CPT-38361 Venipuncture Draw Fee 08:27:08 CDT CPT-78501 Liver Profile - LAB USE ONLY 08:27:07 CDT 2 CPT-68221 Microalbumin - LAB USE ONLY 08:27:07 CDT 20 25/05/09 CPT-08075 PT/INR - LAB USE ONLY 08:27:07 CDT CPT-36884 HGBA1C - LAB USE ONLY 08:27:07 CDT CPT-73599 CBC - LAB USE ONLY 08:27:07 CDT CPT-06422 Venipuncture Draw Fee 11:09:14 CDT CPT-85603 Venipuncture Draw Fee 08:32:21 INSURANCE CLAIMS ASSISTANT CPT-92500 Venipuncture Draw Fee 09:38:56 INSURANCE CLAIMS ASSISTANT CPT-13117 No Charge Offi Visit 21:36:07 CDT 1 CPT-04023 Venipuncture Draw Fee 10:13:28 INSURANCE CLAIMS ASSISTANT CPT-52598 Venipuncture Draw Fee 08:31:11 CDT CPT-52180 Aspir/Inject Med Joint 18:17:28 CDT CPT-78588 Venipuncture Draw Fee 10:13:30 CDT CPT-59072 Venipuncture Draw Fee 08:31:43 INSURANCE CLAIMS ASSISTANT CPT-JTINJ Joint Injection 18:34:50 CDT CPT-21788 Knee 3V 12:25:09 CDT CPT-93741 Venipuncture Draw Fee 12:15:57 CDT CPT-060 Medical Surveillance Exam 21:31:43 CDT 2011 CPT-10456 Venipuncture Draw Fee 08:32:05 INSURANCE CLAIMS ASSISTANT CPT-OV Office Visit 18:19:06 CDT
--- OUTSIDE RECORDS SUMMARY | 2020-01-18 13:49 | XMS REPORT | Clinical Summary ---
Author Author Admin, Mitch Leon Organization [facility] [place] Address Unknown Phone Unavailable Allergies, Adverse Reactions, [...] vessel, [place] or graft EDEMA 782.3 Resolved Mitch Urbina [...] Carlitos DO Gout, unspecified BRUISE 924.9 Resolved Mithc W Carlitos DO Co ntusion of unspecified [...] neoplasm of colon Coumadin therapy V58.61 Active Dmoi Rivera MA Long-term (current) use of anticoagulants [...] REACTIVE HYPOGLYCEMIA ICD-251.2 Inactive Mitch Arnol Urbina DO LONG-TERM (CURRENT) USE OF ANTICOAGULANTS ICD-V58.61 Inactive Mitch Arnol Urbina DO EDEMA ICD-782.3 Inactive Mitch Arnol [...] pr ostate and blood pressure DOXAZOSIN MESYLATE 65002479661 Active Mitch Urbina DO Active LOSARTAN TABS 100MG TAKE 1 TABLET DAILY FOR BLOOD PRESSURE LOSARTAN POTASSIUM 76842792230 Active Maria Rivas RN Active FLUTICASONE PROPIONATE 50 MCG/ACT NASAL SUSPENSION 1 s pray each nostril twice daily for 1 week, then once daily FLUTICASONE SD OPIONATE 57269826269 Active Becky Sell MACHINE FUR CLEANER Active PREDNISONE 20 MG ORAL TABLET 2 tabs daily for 3 days 1 tab d aily for 3 days PREDNISONE 26010621542 No Longer Active Becky Sell MACHINE FUR CLEANER Active MINOXIDIL 2.5 MG ORAL TABLET 1 tablet twice daily for high b lood pressure MINOXIDIL 42562244905 Active Mitch Urbina DO Ac tive METFORMIN HCL ER 500 MG ORAL TABLET EXTENDED RELEASE 2 4 HOUR 2 tablets by mouth twice daily METFORMIN HCL 83540999238 Active Mitch Urbina DO Active GLIMEPIRIDE 4 MG ORAL TABLET 1 tablet by mouth twice daily f or diabetes GLIMEPIRIDE 07266693869 Active Mitch Urbina DO Active GLIMEPIRIDE 2 MG ORAL TABLET 1 po BID GLIMEPI RIDE 53702087176 No Longer Active Mitch Urbina DO Active AMLODIPINE BESYLATE 5 MG ORAL TABLET 1 tablet by mouth daily AMLODIPINE BESYLATE 96171401380 Active Mitch Urbina DO Active PROVIGIL 200 MG ORAL TABLET 1/2 tab po q day MODA FINIL 13433926237 Active Renee Oconnor LPN Active FAMOTIDINE 20 MG ORAL TABLET by mouth twice a day 2017 FAMOTIDINE 68153865925 No Longer Active Mitch Urbina DO Active COLCRYS 0.6 MG ORAL TABLET 1 tab qid prn gout C OLCHICINE 13830368580 No Longer Active Mitch Arnol Urbina DO Active KEFLEX 500 MG ORAL CAPSULE 1 po qid CEPHALEXI N 59078319681 No Longer Active Mitch Urbina DO Active AMLODIPINE BESYLATE 5 MG ORAL TABLET 1 tablet by mouth daily 201 01/20/04 AMLODIPINE BESYLATE 32696022982 No Longer Active Joe fulton APRN Active MITIGARE 0.6 MG ORAL CAPSULE 2 capsules at onset of go ut pain, then take one capsule at 1 hour if symptoms persist. COLCHICINE 59 314045876 Active Mitch Arnol Urbina DO Active COUMADIN 1 MG ORAL TABLET 2 tabs orally daily with the 5mg tab to equal 7mg daily WARFARIN SODIUM 64231652109 Active Renee Oconnor LPN Active INVOKANA 100 MG ORAL TABLET 1 tablet orally daily CANAGLIFLOZIN 30467614344 Active Mitch Urbina DO Active MECLIZINE HCL 25 MG ORAL TABLET 1 po tid 3 days, then 1/2 ta b tid 3 days MECLIZINE HCL 58906614927 No Longer Active Corey SEGURA Active ALLOPURINOL 300 MG ORAL TABLET Take 1 tablet by mouth daily 2012 ALLOPURINOL 90137321270 No Longer Active Corey SEGURA Active CLONIDINE HCL 0.1 MG ORAL TABLET 1 po bid 7 days, then 1/2 t ab po bid 7 days CLONIDINE HCL 41643666639 No Longer Active Corey SEGURA Active COUMADIN 5 MG ORAL TABLET 1 tab PO daily WARFAR IN SODIUM 94791999821 Active Renee Oconnor LPN Active COUMADIN 4 MG ORAL TABLET 1 tablet daily WARFAR IN SODIUM 92859847860 No Longer Active Corey SEGURA Active POLYTRIM 96625-5.1 UNIT/ML-% OPHTHALMIC SOLUTION 1 rui p in affected eye every 3 hours while awake x 7 days POLYMYXIN B-TRIMETHOP RIM 05120878429 No Longer Active Corey SEGURA Active LOSARTAN POTASSIUM-HCTZ 100-12.5 MG ORAL TABLET 1 by m outh daily for high blood pressure LOSARTAN POTASSIUM-HCTZ 52904880553 No Longer A ctive Mitch Urbina DO Active LISINOPRIL-HYDROCHLOROTHIAZIDE 20-12.5 MG ORAL TABLET 1 tab by m outh daily LISINOPRIL-HYDROCHLOROTHIAZIDE 53468201457 No Longer Active Mitch Urbina DO Active LISINOPRIL 20 MG ORAL TABLET 1 tab po at HS LIS INOPRIL 23465734358 No Longer Active Mitch Urbina DO Active COUMADIN 5 MG ORAL TABLET 1 by mouth every other day 2 WARFARIN SODIUM 14459847350 No Longer Active Mitch Urbina DO Active COUMADIN 6 MG ORAL TABLET 1 by mouth every other day 2 WARFARIN SODIUM 52636158729 No Longer Active Mitch Urbina DO Active SIMVASTATIN 40 MG ORAL TABLET 1 tab daily at bedtime SIMVASTATIN 56771747844 Active Maria Rivas RN Active SIMVASTATIN 20 MG ORAL TABLET 1 tab daily at bedtime 2 SIMVASTATIN 72135887212 No Longer Active Mitch Urbina DO Active LOVENOX 100 MG/ML SUBCUTANEOUS SOLUTION One injection twice a da y ENOXAPARIN SODIUM 52679058417 No Longer Active Carmine Yusuf MD Active JANUVIA 50 MG ORAL TABLET Take one by mouth daily SITAGLIPTIN PHOSPHATE 21644516258 Active Renee Oconnor LPN Active JANUVIA 100 MG ORAL TABLET 1/2 by mouth every day 2011 SITAGLIPTIN PHOSPHATE 07404371179 No Longer Active Bijal Segal RN Acti ve METFORMIN HCL 500 MG ORAL TABLET 2 by mouth twice daily METFORMIN HCL 23021755813 No Longer Active Renee Oconnor LPN Active COLCRYS 0.6 MG ORAL TABLET 1 po q 6 hours prn gout pain COLCHICINE 56722035629 No Longer Active Camila Reese Active LISINOPRIL 5 MG ORAL TABLET 1 by mouth every day 11/17 LISINOPRIL 34779440555 No Longer Active Nguyen Perez Active KLOR-CON 20 MEQ ORAL PACKET Take one by mouth daily 09/10/08 POTASSIUM CHLORIDE 52132664211 No Longer Active Nguyen Perez Active FUROSEMIDE 40 MG ORAL TABLET 1 by mouth daily F UROSEMIDE 35965191784 No Longer Active Nguyen Perez Active PROVIGIL 100 MG ORAL TABLET Take one by mouth daily 08/20/04 MODAFINIL 67404503393 No Longer Active Mitch Urbina DO Active BACTRIM DS 800-160 MG ORAL TABLET 1 tab by mouth twice daily 201 10/19/09 TRIMETHOPRIM-SULFAMETHOXAZOLE 70718717485 No Longer Active C alberto Hays MD Active ADULT ASPIRIN LOW STRENGTH 81 MG ORAL TABLET DISINTEGR ATING 1 by mouth every daily ASPIRIN 94833299218 Active Mitch Urbina DO Ac tive METOPROLOL TARTRATE 50 MG ORAL TABLET 1 by mouth twice daily METOPROLOL TARTRATE 51045716557 Active Maria Rivas RN Ac tive BACTRIM DS 800-160 MG ORAL TABLET 1 tab by mouth twice daily 201 10/19/09 BACTRIM DS 800-160 MG ORAL TABLET 708531 TRIMETHOPRIM-SULFAMETHOXAZOLE Inactive PROVIGIL 100 MG ORAL TABLET Take one by mouth daily 08/20/04 PROVIGIL 100 MG ORAL TABLET 597973 MODAFINIL Inactive FUROSEMIDE 40 MG ORAL TABLET 1 by mouth daily FUROSEMIDE 40 MG ORAL TABLET 581514 FUROSEMIDE Inactive KLOR-CON 20 MEQ ORAL PACKET Take one by mouth daily 09/10/08 KLOR- CON 20 MEQ ORAL PACKET 9343204 POTASSIUM CHLORIDE Inactive LISINOPRIL 5 MG ORAL TABLET 1 by mouth every day 11/17 LISINOPRIL 5 MG ORAL TABLET 752615 LISINOPRIL Inactive COLCRYS 0.6 MG ORAL TABLET 1 po q 6 hours prn gout pain COLCRYS 0.6 MG ORAL TABLET 292885 COLCHICINE Inactive JANUVIA 100 MG ORAL TABLET 1/2 by mouth every day 2011 JANUVIA 100 MG ORAL TABLET SITAGLIPTIN PHOSPHATE Inactive SIMVASTATIN 20 MG ORAL TABLET 1 tab daily at bedtime SIMVASTATIN 20 MG ORAL TABLET 346780 SIMVASTATIN Inactive COUMADIN 6 MG ORAL TABLET 1 by mouth every other day COUMADIN 6 MG ORAL TABLET 594983 WARFARIN SODIUM Inactive COUMADIN 5 MG ORAL TABLET 1 by mouth every other day COUMADIN 5 MG ORAL TABLET 050034 WARFARIN SODIUM Inactive LISINOPRIL 20 MG ORAL TABLET 1 tab po at HS LISINOPRIL 20 MG ORAL TABLET 052008 LISINOPRIL Inactive LISINOPRIL-HYDROCHLOROTHIAZIDE 20-12.5 MG ORAL TABLET 1 tab by m outh daily LISINOPRIL-HYDROCHLOROTHIAZIDE 20-12.5 MG ORAL TABLET 892697 LISINOPRIL-HYDROCHLOROTHIAZIDE Inactive POLYTRIM 65585-8.1 UNIT/ML-% OPHTHALMIC SOLUTION 1 riu p in affected eye every 3 hours while awake x 7 days POLYTRIM 1000 0-0.1 UNIT/ML-% OPHTHALMIC SOLUTION 890473 POLYMYXIN B-TRIMETHOPRIM Inactive COUMADIN 4 MG ORAL TABLET 1 tablet daily COUMADIN 4 MG ORAL TABLET 044033 WARFARIN SODIUM Inactive CLONIDINE HCL 0.1 MG ORAL TABLET 1 po bid 7 days, then 1/2 t ab po bid 7 days CLONIDINE HCL 0.1 MG ORAL TABLET 432583 CLONIDIN E HCL Inactive ALLOPURINOL 300 MG ORAL TABLET Take 1 tablet by mouth daily 2012 ALLOPURINOL 300 MG ORAL TABLET 288115 ALLOPURINOL I nactive MECLIZINE HCL 25 MG ORAL TABLET 1 po tid 3 days, then 1/2 ta b tid 3 days MECLIZINE HCL 25 MG ORAL TABLET 182848 MECLIZINE HCL Inactive AMLODIPINE BESYLATE 5 MG ORAL TABLET 1 tablet by mouth daily 201 01/20/04 AMLODIPINE BESYLATE 5 MG ORAL TABLET 305118 AMLODIPINE BESYLATE Inactive KEFLEX 500 MG ORAL CAPSULE 1 po qid K EFLEX 500 MG ORAL CAPSULE 130233 CEPHALEXIN Inactive COLCRYS 0.6 MG ORAL TABLET 1 tab qid prn gout COLCRYS 0.6 MG ORAL TABLET 851411 COLCHICINE Inactive FAMOTIDINE 20 MG ORAL TABLET by mouth twice a day 2017 FAMOTIDINE 20 MG ORAL TABLET 758658 FAMOTIDINE Inactive GLIMEPIRIDE 2 MG ORAL TABLET 1 po BID GLIMEPIRIDE 2 MG ORAL TABLET 891813 GLIMEPIRIDE Inactive LOVENOX 100 MG/ML SUBCUTANEOUS SOLUTION One injection twice a da y LOVENOX 100 MG/ML SUBCUTANEOUS SOLUTION 916542 ENOXAPAR IN SODIUM Inactive PREDNISONE 20 MG ORAL TABLET 2 tabs daily for 3 days 1 tab d aily for 3 days PREDNISONE 20 MG ORAL TABLET 877445 PREDNISONE Inactive Advance Directives Directive Description Start [...] mg/dL Encounters Code Encounter Date Provider Facility CPT-29551 [id number] Vst-Est Level IV 16:21:22 CDT Bru robinson Ambrose [facility] CPT-25283 Level 3 Est. Patient 15:18:36 CDT Becky anderson [facility] CPT-49280 33443-Exs Vst-Est Level IV 10:06:35 CDT Bru robinson Ambrose [facility] CPT-98822 [id number] Vst-Est Level IV 10:52:00 RECORDING ARTIST Stephy Ambrose [facility] CPT-78581 Level 3 Est. Patient 18:25:53 CDT Mitch luis [facility] CPT-50758 Level 3 Est. Patient 19:43:34 CDT Mitch luis [facility] CPT-95635 Level 4 Est. Patient 09:30:18 CDT Mitch luis [facility] CPT-97157 Level 3 Est. Patient 15:10:14 CDT Devonjustincarlitos kamara [facility]-12199 Level 3 Est. Patient 15:03:46 CDT Joe kamara [facility] CPT-98328 Level 3 Est. Patient 14:21:06 CDT Mitch Ambrose L ee [facility]-73992 Level 3 Est. Patient 14:52:06 CDT Joe Jason kamara [facility] CPT-70312 Level 3 Est. Patient 09:34:30 RECORDING ARTIST Mitch Ambrose L ee [facility]-98054 Level 3 Est. Patient 09:37:15 CDT Mitch Ambrose L ee [facility] CPT-38907 Level 3 Est. Patient 17:01:00 RECORDING ARTIST Imtch W L ee [facility] CPT-42728 Level 3 Est. Patient 13:53:19 RECORDING ARTIST Mitch W L ee [facility] CPT-56340 Level 3 Est. Patient 19:19:37 RECORDING ARTIST Mitch W L ee [facility] CPT-39904 Level 3 Est. Patient 13:25:53 RECORDING ARTIST Tavo toure MD [facility]-19623 Level 3 Est. Patient 18:17:28 CDT Mitch W L ee [facility] CPT-50112 Level 3 Est. Patient 15:22:57 CDT Mitch W L ee [facility] CPT-30951 Level 3 Est. Patient 18:21:50 CDT Mitch W L ee [facility]-92608 Level 3 Est. Patient 18:20:38 CDT Mitch W L ee [facility] CPT-26234 Level 3 Est. Patient 15:37:55 CDT Mitch W L ee [facility] CPT-59114 Level 2 Est. Patient 15:54:44 CDT Carmine benton MD [facility] CPT-88640 Level 3 Est. Patient 21:46:01 RECORDING ARTIST Mitch Arnol Nona luis [facility] CPT-58510 Level 3 Est. Patient 22:15:50 CDT Mitch luis [facility] CPT-49641 Level 3 Est. Patient 10:48:15 CDT Mitch luis [facility] CPT-51140 Level 3 Est. Patient 23:20:57 CDT Tavo toure MD [facility] CPT-26859 Level 3 Est. Patient 16:26:13 CDT Mitch luis [facility] Procedures Code Procedure Name Date Entry Date Standard Desc ription CPT-30033 Venous Duplex Left Leg XRAY USE ONLY 10:43:10 CDT CPT-13249 Venipuncture Draw Fee 17:04:55 CDT CPT-33378 Venipuncture Draw Fee 17:20:50 CDT CPT-51347 Venipuncture Draw Fee 18:00:48 CDT CPT-25675 Venipuncture Draw Fee 14:56:20 CDT CPT-JTINJ Asp/Joint Injection 18:47:02 CDT CPT-47392 Venipuncture Draw Fee 09:26:17 CDT CPT-31487 PT/INR - LAB USE ONLY 13:32:49 RECORDING ARTIST CPT-75078 Venipuncture Draw Fee 13:32:49 RECORDING ARTIST CPT-71892 PT/INR - LAB USE ONLY 10:34:49 RECORDING ARTIST CPT-18736 Venipuncture Draw Fee 10:34:48 RECORDING ARTIST CPT-22054 PT/INR - LAB USE ONLY 09:22:03 RECORDING ARTIST CPT-85592 Venipuncture Draw Fee 09:22:02 RECORDING ARTIST CPT-73349 Hemoccult IFOBT - LAB USE ONLY 10:27:22 CDT CPT-89302 Venipuncture Draw Fee 08:27:08 CDT CPT-53472 Liver Profile - LAB USE ONLY 08:27:07 CDT 2 CPT-10570 Microalbumin - LAB USE ONLY 08:27:07 CDT 20 25/05/09 CPT-27697 PT/INR - LAB USE ONLY 08:27:07 CDT CPT-49387 HGBA1C - LAB USE ONLY 08:27:07 CDT CPT-06477 CBC - LAB USE ONLY 08:27:07 CDT CPT-69834 Venipuncture Draw Fee 11:09:14 CDT CPT-39685 Venipuncture Draw Fee 08:32:21 RECORDING ARTIST CPT-40328 Venipuncture Draw Fee 09:38:56 RECORDING ARTIST CPT-72755 No Charge Offi Visit 21:36:07 CDT 1 CPT-67387 Venipuncture Draw Fee 10:13:28 RECORDING ARTIST CPT-54059 Venipuncture Draw Fee 08:31:11 CDT CPT-83223 Aspir/Inject Med Joint 18:17:28 CDT CPT-97143 Venipuncture Draw Fee 10:13:30 CDT CPT-02942 Venipuncture Draw Fee 08:31:43 RECORDING ARTIST CPT-JTINJ Joint Injection 18:34:50 CDT CPT-77446 Knee 3V 12:25:09 CDT CPT-20186 Venipuncture Draw Fee 12:15:57 CDT CPT-060 Medical Surveillance Exam 21:31:43 CDT 2011 CPT-87125 Venipuncture Draw Fee 08:32:05 RECORDING ARTIST CPT-OV Office Visit 18:19:06 CDT
--- OUTSIDE RECORDS SUMMARY | 2020-01-18 13:49 | XMS REPORT | Clinical Summary ---
Author Author Admin, Mitch Leon Organization [facility] Address Unknown Phone Unavailable Allergies, Adverse Reactions, [...] pr ostate and blood pressure DOXAZOSIN MESYLATE 93012266872 Active Mitch Urbina DO Active LOSARTAN TABS 100MG TAKE 1 TABLET DAILY FOR BLOOD PRESSURE LOSARTAN POTASSIUM 60921589146 Active Maria Rivas RN Active FLUTICASONE PROPIONATE 50 MCG/ACT NASAL SUSPENSION 1 s pray each nostril twice daily for 1 week, then once daily FLUTICASONE OK OPIONATE 79934661927 Active Becky Sell IRRIGATING PUMP OPERATOR Active PREDNISONE 20 MG ORAL TABLET 2 tabs daily for 3 days 1 tab d aily for 3 days PREDNISONE 16880464227 No Longer Active Becky Sell IRRIGATING PUMP OPERATOR Active MINOXIDIL 2.5 MG ORAL TABLET 1 tablet twice daily for high b lood pressure MINOXIDIL 14556401558 Active Mitch Urbina DO Ac tive METFORMIN HCL ER 500 MG ORAL TABLET EXTENDED RELEASE 2 4 HOUR 2 tablets by mouth twice daily METFORMIN HCL 33302806679 Active Mitch Urbina DO Active GLIMEPIRIDE 4 MG ORAL TABLET 1 tablet by mouth twice daily f or diabetes GLIMEPIRIDE 16980021404 Active Mitch Urbina DO Active GLIMEPIRIDE 2 MG ORAL TABLET 1 po BID GLIMEPI RIDE 17820852200 No Longer Active Mitch Urbina DO Active AMLODIPINE BESYLATE 5 MG ORAL TABLET 1 tablet by mouth daily AMLODIPINE BESYLATE 34372331079 Active Mitch Urbina DO Active PROVIGIL 200 MG ORAL TABLET 1/2 tab po q day MODA FINIL 46475479059 Active Renee Oconnor LPN Active FAMOTIDINE 20 MG ORAL TABLET by mouth twice a day 2017 FAMOTIDINE 85429152817 No Longer Active Mitch Urbina DO Active COLCRYS 0.6 MG ORAL TABLET 1 tab qid prn gout C OLCHICINE 39024202909 No Longer Active Mitch Arnol Urbina DO Active KEFLEX 500 MG ORAL CAPSULE 1 po qid CEPHALEXI N 21061844118 No Longer Active Mitch Urbina DO Active AMLODIPINE BESYLATE 5 MG ORAL TABLET 1 tablet by mouth daily 201 01/20/04 AMLODIPINE BESYLATE 21694026313 No Longer Active Joe fulton APRN Active MITIGARE 0.6 MG ORAL CAPSULE 2 capsules at onset of go ut pain, then take one capsule at 1 hour if symptoms persist. COLCHICINE 59 544076983 Active Mitch Arnol Urbina DO Active COUMADIN 1 MG ORAL TABLET 2 tabs orally daily with the 5mg tab to equal 7mg daily WARFARIN SODIUM 31957998270 Active Renee Oconnor LPN Active INVOKANA 100 MG ORAL TABLET 1 tablet orally daily CANAGLIFLOZIN 91620137507 Active Mitch Urbina DO Active MECLIZINE HCL 25 MG ORAL TABLET 1 po tid 3 days, then 1/2 ta b tid 3 days MECLIZINE HCL 15736512594 No Longer Active Corey SEGURA Active ALLOPURINOL 300 MG ORAL TABLET Take 1 tablet by mouth daily 2012 ALLOPURINOL 38221966046 No Longer Active Corey SEGURA Active CLONIDINE HCL 0.1 MG ORAL TABLET 1 po bid 7 days, then 1/2 t ab po bid 7 days CLONIDINE HCL 40598505728 No Longer Active Corey SEGURA Active COUMADIN 5 MG ORAL TABLET 1 tab PO daily WARFAR IN SODIUM 02555477669 Active Renee Oconnor LPN Active COUMADIN 4 MG ORAL TABLET 1 tablet daily WARFAR IN SODIUM 73924044574 No Longer Active Corey SEGURA Active POLYTRIM 29823-1.1 UNIT/ML-% OPHTHALMIC SOLUTION 1 rui p in affected eye every 3 hours while awake x 7 days POLYMYXIN B-TRIMETHOP RIM 68322297412 No Longer Active Corey SEGURA Active LOSARTAN POTASSIUM-HCTZ 100-12.5 MG ORAL TABLET 1 by m outh daily for high blood pressure LOSARTAN POTASSIUM-HCTZ 55381480520 No Longer A ctive Mitch Urbina DO Active LISINOPRIL-HYDROCHLOROTHIAZIDE 20-12.5 MG ORAL TABLET 1 tab by m outh daily LISINOPRIL-HYDROCHLOROTHIAZIDE 94442414914 No Longer Active Mitch Urbina DO Active LISINOPRIL 20 MG ORAL TABLET 1 tab po at HS LIS INOPRIL 06080432002 No Longer Active Mitch Urbina DO Active COUMADIN 5 MG ORAL TABLET 1 by mouth every other day 2 WARFARIN SODIUM 39763580557 No Longer Active Mitch Urbina DO Active COUMADIN 6 MG ORAL TABLET 1 by mouth every other day 2 WARFARIN SODIUM 80154134284 No Longer Active Mitch Urbina DO Active SIMVASTATIN 40 MG ORAL TABLET 1 tab daily at bedtime SIMVASTATIN 19571158091 Active Maria Rivas RN Active SIMVASTATIN 20 MG ORAL TABLET 1 tab daily at bedtime 2 SIMVASTATIN 83580142710 No Longer Active Mitch Urbina DO Active LOVENOX 100 MG/ML SUBCUTANEOUS SOLUTION One injection twice a da y ENOXAPARIN SODIUM 74592081553 No Longer Active aCrmine Yusuf MD Active JANUVIA 50 MG ORAL TABLET Take one by mouth daily SITAGLIPTIN PHOSPHATE 02075881909 Active Renee Oconnor LPN Active JANUVIA 100 MG ORAL TABLET 1/2 by mouth every day 2011 SITAGLIPTIN PHOSPHATE 57457520137 No Longer Active Bijal Segal RN Acti ve METFORMIN HCL 500 MG ORAL TABLET 2 by mouth twice daily METFORMIN HCL 63550940275 No Longer Active Renee Oconnor LPN Active COLCRYS 0.6 MG ORAL TABLET 1 po q 6 hours prn gout pain COLCHICINE 48767268317 No Longer Active Camila Reese Active LISINOPRIL 5 MG ORAL TABLET 1 by mouth every day 11/17 LISINOPRIL 15796476871 No Longer Active Nguyen Perez Active KLOR-CON 20 MEQ ORAL PACKET Take one by mouth daily 09/10/08 POTASSIUM CHLORIDE 18882680743 No Longer Active Nguyen Perez Active FUROSEMIDE 40 MG ORAL TABLET 1 by mouth daily F UROSEMIDE 43298089444 No Longer Active Nguyen Perez Active PROVIGIL 100 MG ORAL TABLET Take one by mouth daily 08/20/04 MODAFINIL 54709955647 No Longer Active Mitch Urbina DO Active BACTRIM DS 800-160 MG ORAL TABLET 1 tab by mouth twice daily 201 10/19/09 TRIMETHOPRIM-SULFAMETHOXAZOLE 40267361303 No Longer Active C alberto Hays MD Active ADULT ASPIRIN LOW STRENGTH 81 MG ORAL TABLET DISINTEGR ATING 1 by mouth every daily ASPIRIN 24734278340 Active Mitch Urbina DO Ac tive METOPROLOL TARTRATE 50 MG ORAL TABLET 1 by mouth twice daily METOPROLOL TARTRATE 15379982023 Active Maria Rivas RN Ac tive BACTRIM DS 800-160 MG ORAL TABLET 1 tab by mouth twice daily 201 10/19/09 BACTRIM DS 800-160 MG ORAL TABLET 382245 TRIMETHOPRIM-SULFAMETHOXAZOLE Inactive PROVIGIL 100 MG ORAL TABLET Take one by mouth daily 08/20/04 PROVIGIL 100 MG ORAL TABLET 790278 MODAFINIL Inactive FUROSEMIDE 40 MG ORAL TABLET 1 by mouth daily FUROSEMIDE 40 MG ORAL TABLET 222761 FUROSEMIDE Inactive KLOR-CON 20 MEQ ORAL PACKET Take one by mouth daily 09/10/08 KLOR- CON 20 MEQ ORAL PACKET 5006422 POTASSIUM CHLORIDE Inactive LISINOPRIL 5 MG ORAL TABLET 1 by mouth every day 11/17 LISINOPRIL 5 MG ORAL TABLET 874478 LISINOPRIL Inactive COLCRYS 0.6 MG ORAL TABLET 1 po q 6 hours prn gout pain COLCRYS 0.6 MG ORAL TABLET 804944 COLCHICINE Inactive JANUVIA 100 MG ORAL TABLET 1/2 by mouth every day 2011 JANUVIA 100 MG ORAL TABLET SITAGLIPTIN PHOSPHATE Inactive SIMVASTATIN 20 MG ORAL TABLET 1 tab daily at bedtime SIMVASTATIN 20 MG ORAL TABLET 479957 SIMVASTATIN Inactive COUMADIN 6 MG ORAL TABLET 1 by mouth every other day COUMADIN 6 MG ORAL TABLET 259421 WARFARIN SODIUM Inactive COUMADIN 5 MG ORAL TABLET 1 by mouth every other day COUMADIN 5 MG ORAL TABLET 078547 WARFARIN SODIUM Inactive LISINOPRIL 20 MG ORAL TABLET 1 tab po at HS LISINOPRIL 20 MG ORAL TABLET 300174 LISINOPRIL Inactive LISINOPRIL-HYDROCHLOROTHIAZIDE 20-12.5 MG ORAL TABLET 1 tab by m outh daily LISINOPRIL-HYDROCHLOROTHIAZIDE 20-12.5 MG ORAL TABLET 625528 LISINOPRIL-HYDROCHLOROTHIAZIDE Inactive POLYTRIM 98376-9.1 UNIT/ML-% OPHTHALMIC SOLUTION 1 rui p in affected eye every 3 hours while awake x 7 days POLYTRIM 1000 0-0.1 UNIT/ML-% OPHTHALMIC SOLUTION 200894 POLYMYXIN B-TRIMETHOPRIM Inactive COUMADIN 4 MG ORAL TABLET 1 tablet daily COUMADIN 4 MG ORAL TABLET 516228 WARFARIN SODIUM Inactive CLONIDINE HCL 0.1 MG ORAL TABLET 1 po bid 7 days, then 1/2 t ab po bid 7 days CLONIDINE HCL 0.1 MG ORAL TABLET 373441 CLONIDIN E HCL Inactive ALLOPURINOL 300 MG ORAL TABLET Take 1 tablet by mouth daily 2012 ALLOPURINOL 300 MG ORAL TABLET 558189 ALLOPURINOL I nactive MECLIZINE HCL 25 MG ORAL TABLET 1 po tid 3 days, then 1/2 ta b tid 3 days MECLIZINE HCL 25 MG ORAL TABLET 787678 MECLIZINE HCL Inactive AMLODIPINE BESYLATE 5 MG ORAL TABLET 1 tablet by mouth daily 201 01/20/04 AMLODIPINE BESYLATE 5 MG ORAL TABLET 223183 AMLODIPINE BESYLATE Inactive KEFLEX 500 MG ORAL CAPSULE 1 po qid K EFLEX 500 MG ORAL CAPSULE 839824 CEPHALEXIN Inactive COLCRYS 0.6 MG ORAL TABLET 1 tab qid prn gout COLCRYS 0.6 MG ORAL TABLET 250948 COLCHICINE Inactive FAMOTIDINE 20 MG ORAL TABLET by mouth twice a day 2017 FAMOTIDINE 20 MG ORAL TABLET 965190 FAMOTIDINE Inactive GLIMEPIRIDE 2 MG ORAL TABLET 1 po BID GLIMEPIRIDE 2 MG ORAL TABLET 258813 GLIMEPIRIDE Inactive LOVENOX 100 MG/ML SUBCUTANEOUS SOLUTION One injection twice a da y LOVENOX 100 MG/ML SUBCUTANEOUS SOLUTION 125621 ENOXAPAR IN SODIUM Inactive PREDNISONE 20 MG ORAL TABLET 2 tabs daily for 3 days 1 tab d aily for 3 days PREDNISONE 20 MG ORAL TABLET 141884 PREDNISONE Inactive Advance Directives Directive Description Start [...] mg/dL Encounters Code Encounter Date Provider Facility CPT-66498 [id number] Vst-Est Level IV 16:21:22 CDT Bru robinson [facility] CPT-19572 Level 3 Est. Patient 15:18:36 CDT Becky anderson [facility] CPT-13189 [id number] Vst-Est Level IV 10:06:35 CDT Bru robinson [facility] CPT-43274 [id number] Vst-Est Level IV 10:52:00 STUDIO OPERATIONS MANAGER Stephy [facility] CPT-58851 Level 3 Est. Patient 18:25:53 CDT Mitch luis [facility] CPT-79650 Level 3 Est. Patient 19:43:34 CDT Mitch luis [facility] CPT-87980 Level 4 Est. Patient 09:30:18 CDT Mitch luis [facility] CPT-37221 Level 3 Est. Patient 15:10:14 CDT Devonjustincarlitos kamara [facility]-00914 Level 3 Est. Patient 15:03:46 CDT Joe kamara [facility] CPT-54127 Level 3 Est. Patient 14:21:06 CDT Mitch [facility]rose L ee [facility]-81374 Level 3 Est. Patient 14:52:06 CDT Joe Jason kamara [facility] CPT-03766 Level 3 Est. Patient 09:34:30 STUDIO OPERATIONS MANAGER Mitch [facility]rose L ee [facility]-32069 Level 3 Est. Patient 09:37:15 CDT Mitch [facility]rose L ee [facility] CPT-57014 Level 3 Est. Patient 17:01:00 STUDIO OPERATIONS MANAGER Mitch W L ee [facility] CPT-15959 Level 3 Est. Patient 13:53:19 STUDIO OPERATIONS MANAGER Mitch W L ee [facility] CPT-14685 Level 3 Est. Patient 19:19:37 STUDIO OPERATIONS MANAGER Mitch W L ee [facility] CPT-01268 Level 3 Est. Patient 13:25:53 STUDIO OPERATIONS MANAGER Tavo toure MD [facility]-58807 Level 3 Est. Patient 18:17:28 CDT Mitch W L ee [facility] CPT-54797 Level 3 Est. Patient 15:22:57 CDT Mitch W L ee [facility] CPT-32718 Level 3 Est. Patient 18:21:50 CDT Mitch W L ee [facility]-69661 Level 3 Est. Patient 18:20:38 CDT Mitch W L ee [facility] CPT-87186 Level 3 Est. Patient 15:37:55 CDT Mitch W L ee [facility] CPT-49043 Level 2 Est. Patient 15:54:44 CDT Carmine benton MD [facility] CPT-13320 Level 3 Est. Patient 21:46:01 STUDIO OPERATIONS MANAGER Mitch Arnol Nona luis [facility] CPT-84346 Level 3 Est. Patient 22:15:50 CDT Mitch luis [facility] CPT-42449 Level 3 Est. Patient 10:48:15 CDT Mitch luis [facility] CPT-73501 Level 3 Est. Patient 23:20:57 CDT Tavo toure MD [facility] CPT-88811 Level 3 Est. Patient 16:26:13 CDT Mitch luis [facility] Procedures Code Procedure Name Date Entry Date Standard Desc ription CPT-91584 Venous Duplex Left Leg XRAY USE ONLY 10:43:10 CDT CPT-82786 Venipuncture Draw Fee 17:04:55 CDT CPT-70918 Venipuncture Draw Fee 17:20:50 CDT CPT-43584 Venipuncture Draw Fee 18:00:48 CDT CPT-63485 Venipuncture Draw Fee 14:56:20 CDT CPT-JTINJ Asp/Joint Injection 18:47:02 CDT CPT-66495 Venipuncture Draw Fee 09:26:17 CDT CPT-34662 PT/INR - LAB USE ONLY 13:32:49 STUDIO OPERATIONS MANAGER CPT-83511 Venipuncture Draw Fee 13:32:49 STUDIO OPERATIONS MANAGER CPT-61945 PT/INR - LAB USE ONLY 10:34:49 STUDIO OPERATIONS MANAGER CPT-95849 Venipuncture Draw Fee 10:34:48 STUDIO OPERATIONS MANAGER CPT-08081 PT/INR - LAB USE ONLY 09:22:03 STUDIO OPERATIONS MANAGER CPT-70410 Venipuncture Draw Fee 09:22:02 STUDIO OPERATIONS MANAGER CPT-51343 Hemoccult IFOBT - LAB USE ONLY 10:27:22 CDT CPT-13741 Venipuncture Draw Fee 08:27:08 CDT CPT-78728 Liver Profile - LAB USE ONLY 08:27:07 CDT 2 CPT-01977 Microalbumin - LAB USE ONLY 08:27:07 CDT 20 25/05/09 CPT-10480 PT/INR - LAB USE ONLY 08:27:07 CDT CPT-78848 HGBA1C - LAB USE ONLY 08:27:07 CDT CPT-02681 CBC - LAB USE ONLY 08:27:07 CDT CPT-79286 Venipuncture Draw Fee 11:09:14 CDT CPT-20036 Venipuncture Draw Fee 08:32:21 STUDIO OPERATIONS MANAGER CPT-91684 Venipuncture Draw Fee 09:38:56 STUDIO OPERATIONS MANAGER CPT-69721 No Charge Offi Visit 21:36:07 CDT 1 CPT-41824 Venipuncture Draw Fee 10:13:28 STUDIO OPERATIONS MANAGER CPT-74589 Venipuncture Draw Fee 08:31:11 CDT CPT-41125 Aspir/Inject Med Joint 18:17:28 CDT CPT-26550 Venipuncture Draw Fee 10:13:30 CDT CPT-16004 Venipuncture Draw Fee 08:31:43 STUDIO OPERATIONS MANAGER CPT-JTINJ Joint Injection 18:34:50 CDT CPT-63542 Knee 3V 12:25:09 CDT CPT-99451 Venipuncture Draw Fee 12:15:57 CDT CPT-060 Medical Surveillance Exam 21:31:43 CDT 2011 CPT-57923 Venipuncture Draw Fee 08:32:05 STUDIO OPERATIONS MANAGER CPT-OV Office Visit 18:19:06 CDT
--- OUTSIDE RECORDS SUMMARY | 2020-01-18 13:49 | XMS REPORT | Clinical Summary ---
Author Author Admin, Mitch Leon Organization [facility] Address Unknown Phone Unavailable Allergies, Adverse Reactions, [...] Coronary atherosclerosis of unspecified type of vessel, diomede or graft EDEMA 782.3 Resolved Mitch Urbina [...] Vaccination for Prophylaxis V04.81 Inactive Mitch Arnol rUbina DO Need for prophylactic vaccin ation and [...] pr ostate and blood pressure DOXAZOSIN MESYLATE 22774261462 Active Mitch Urbina DO Active LOSARTAN TABS 100MG TAKE 1 TABLET DAILY FOR BLOOD PRESSURE LOSARTAN POTASSIUM 81205336644 Active Maria Rivas RN Active FLUTICASONE PROPIONATE 50 MCG/ACT NASAL SUSPENSION 1 s pray each nostril twice daily for 1 week, then once daily FLUTICASONE CT OPIONATE 41082761733 Active Becky Sell WET CROWN BLOCKING OPERATOR Active PREDNISONE 20 MG ORAL TABLET 2 tabs daily for 3 days 1 tab d aily for 3 days PREDNISONE 62239432332 No Longer Active Becky Sell WET CROWN BLOCKING OPERATOR Active MINOXIDIL 2.5 MG ORAL TABLET 1 tablet twice daily for high b lood pressure MINOXIDIL 68910495841 Active Mitch Urbina DO Ac tive METFORMIN HCL ER 500 MG ORAL TABLET EXTENDED RELEASE 2 4 HOUR 2 tablets by mouth twice daily METFORMIN HCL 56206573546 Active Mitch Urbina DO Active GLIMEPIRIDE 4 MG ORAL TABLET 1 tablet by mouth twice daily f or diabetes GLIMEPIRIDE 71536968791 Active Mitch Urbina DO Active GLIMEPIRIDE 2 MG ORAL TABLET 1 po BID GLIMEPI RIDE 08486669620 No Longer Active Mitch Urbina DO Active AMLODIPINE BESYLATE 5 MG ORAL TABLET 1 tablet by mouth daily AMLODIPINE BESYLATE 99315919436 Active Mitch Urbina DO Active PROVIGIL 200 MG ORAL TABLET 1/2 tab po q day MODA FINIL 32274254736 Active Renee Oconnor LPN Active FAMOTIDINE 20 MG ORAL TABLET by mouth twice a day 2017 FAMOTIDINE 66859514170 No Longer Active Mitch Urbina DO Active COLCRYS 0.6 MG ORAL TABLET 1 tab qid prn gout C OLCHICINE 82839722310 No Longer Active Mitch Arnol Urbina DO Active KEFLEX 500 MG ORAL CAPSULE 1 po qid CEPHALEXI N 26700246184 No Longer Active Mitch Urbina DO Active AMLODIPINE BESYLATE 5 MG ORAL TABLET 1 tablet by mouth daily 201 01/20/04 AMLODIPINE BESYLATE 18554086299 No Longer Active Joe fulton APRN Active MITIGARE 0.6 MG ORAL CAPSULE 2 capsules at onset of go ut pain, then take one capsule at 1 hour if symptoms persist. COLCHICINE 59 401160090 Active Mitch Arnol Urbina DO Active COUMADIN 1 MG ORAL TABLET 2 tabs orally daily with the 5mg tab to equal 7mg daily WARFARIN SODIUM 10509959677 Active Renee Oconnor LPN Active INVOKANA 100 MG ORAL TABLET 1 tablet orally daily CANAGLIFLOZIN 93341094394 Active Mitch Urbina DO Active MECLIZINE HCL 25 MG ORAL TABLET 1 po tid 3 days, then 1/2 ta b tid 3 days MECLIZINE HCL 28798472801 No Longer Active Corey SEGURA Active ALLOPURINOL 300 MG ORAL TABLET Take 1 tablet by mouth daily 2012 ALLOPURINOL 83280479765 No Longer Active Corey SEGURA Active CLONIDINE HCL 0.1 MG ORAL TABLET 1 po bid 7 days, then 1/2 t ab po bid 7 days CLONIDINE HCL 40251781613 No Longer Active Corey SEGURA Active COUMADIN 5 MG ORAL TABLET 1 tab PO daily WARFAR IN SODIUM 44497755156 Active Renee Oconnor LPN Active COUMADIN 4 MG ORAL TABLET 1 tablet daily WARFAR IN SODIUM 26776051321 No Longer Active Corey SEGURA Active POLYTRIM 12441-1.1 UNIT/ML-% OPHTHALMIC SOLUTION 1 rui p in affected eye every 3 hours while awake x 7 days POLYMYXIN B-TRIMETHOP RIM 27839730878 No Longer Active Corey SEGURA Active LOSARTAN POTASSIUM-HCTZ 100-12.5 MG ORAL TABLET 1 by m outh daily for high blood pressure LOSARTAN POTASSIUM-HCTZ 02163743555 No Longer A ctive Mitch Urbina DO Active LISINOPRIL-HYDROCHLOROTHIAZIDE 20-12.5 MG ORAL TABLET 1 tab by m outh daily LISINOPRIL-HYDROCHLOROTHIAZIDE 92723967668 No Longer Active Mitch Urbina DO Active LISINOPRIL 20 MG ORAL TABLET 1 tab po at HS LIS INOPRIL 32408321253 No Longer Active Mitch Urbina DO Active COUMADIN 5 MG ORAL TABLET 1 by mouth every other day 2 WARFARIN SODIUM 63200633940 No Longer Active Mitch Urbina DO Active COUMADIN 6 MG ORAL TABLET 1 by mouth every other day 2 WARFARIN SODIUM 57917280193 No Longer Active Mitch Urbina DO Active SIMVASTATIN 40 MG ORAL TABLET 1 tab daily at bedtime SIMVASTATIN 93608570346 Active Maria Rivas RN Active SIMVASTATIN 20 MG ORAL TABLET 1 tab daily at bedtime 2 SIMVASTATIN 47119621921 No Longer Active Mitch Urbina DO Active LOVENOX 100 MG/ML SUBCUTANEOUS SOLUTION One injection twice a da y ENOXAPARIN SODIUM 09888321028 No Longer Active Carmine Yusuf MD Active JANUVIA 50 MG ORAL TABLET Take one by mouth daily SITAGLIPTIN PHOSPHATE 82549061036 Active Renee Oconnor LPN Active JANUVIA 100 MG ORAL TABLET 1/2 by mouth every day 2011 SITAGLIPTIN PHOSPHATE 10263303484 No Longer Active Bijal Segal RN Acti ve METFORMIN HCL 500 MG ORAL TABLET 2 by mouth twice daily METFORMIN HCL 83125150498 No Longer Active Renee Oconnor LPN Active COLCRYS 0.6 MG ORAL TABLET 1 po q 6 hours prn gout pain COLCHICINE 94738211156 No Longer Active Camila Reese Active LISINOPRIL 5 MG ORAL TABLET 1 by mouth every day 11/17 LISINOPRIL 15117142709 No Longer Active Nguyen Perez Active KLOR-CON 20 MEQ ORAL PACKET Take one by mouth daily 09/10/08 POTASSIUM CHLORIDE 68869257735 No Longer Active Nguyen Perez Active FUROSEMIDE 40 MG ORAL TABLET 1 by mouth daily F UROSEMIDE 04064233647 No Longer Active Nguyen Perez Active PROVIGIL 100 MG ORAL TABLET Take one by mouth daily 08/20/04 MODAFINIL 20521921320 No Longer Active Mitch Urbina DO Active BACTRIM DS 800-160 MG ORAL TABLET 1 tab by mouth twice daily 201 10/19/09 TRIMETHOPRIM-SULFAMETHOXAZOLE 46795544942 No Longer Active C alberto Hays MD Active ADULT ASPIRIN LOW STRENGTH 81 MG ORAL TABLET DISINTEGR ATING 1 by mouth every daily ASPIRIN 69711713272 Active Mitch Urbina DO Ac tive METOPROLOL TARTRATE 50 MG ORAL TABLET 1 by mouth twice daily METOPROLOL TARTRATE 80046112281 Active Maria Rivas RN Ac tive BACTRIM DS 800-160 MG ORAL TABLET 1 tab by mouth twice daily 201 10/19/09 BACTRIM DS 800-160 MG ORAL TABLET 054441 TRIMETHOPRIM-SULFAMETHOXAZOLE Inactive PROVIGIL 100 MG ORAL TABLET Take one by mouth daily 08/20/04 PROVIGIL 100 MG ORAL TABLET 610194 MODAFINIL Inactive FUROSEMIDE 40 MG ORAL TABLET 1 by mouth daily FUROSEMIDE 40 MG ORAL TABLET 817267 FUROSEMIDE Inactive KLOR-CON 20 MEQ ORAL PACKET Take one by mouth daily 09/10/08 KLOR- CON 20 MEQ ORAL PACKET 5898680 POTASSIUM CHLORIDE Inactive LISINOPRIL 5 MG ORAL TABLET 1 by mouth every day 11/17 LISINOPRIL 5 MG ORAL TABLET 673074 LISINOPRIL Inactive COLCRYS 0.6 MG ORAL TABLET 1 po q 6 hours prn gout pain COLCRYS 0.6 MG ORAL TABLET 099463 COLCHICINE Inactive JANUVIA 100 MG ORAL TABLET 1/2 by mouth every day 2011 JANUVIA 100 MG ORAL TABLET SITAGLIPTIN PHOSPHATE Inactive SIMVASTATIN 20 MG ORAL TABLET 1 tab daily at bedtime SIMVASTATIN 20 MG ORAL TABLET 492573 SIMVASTATIN Inactive COUMADIN 6 MG ORAL TABLET 1 by mouth every other day COUMADIN 6 MG ORAL TABLET 908268 WARFARIN SODIUM Inactive COUMADIN 5 MG ORAL TABLET 1 by mouth every other day COUMADIN 5 MG ORAL TABLET 562277 WARFARIN SODIUM Inactive LISINOPRIL 20 MG ORAL TABLET 1 tab po at HS LISINOPRIL 20 MG ORAL TABLET 504326 LISINOPRIL Inactive LISINOPRIL-HYDROCHLOROTHIAZIDE 20-12.5 MG ORAL TABLET 1 tab by m outh daily LISINOPRIL-HYDROCHLOROTHIAZIDE 20-12.5 MG ORAL TABLET 767183 LISINOPRIL-HYDROCHLOROTHIAZIDE Inactive POLYTRIM 53974-3.1 UNIT/ML-% OPHTHALMIC SOLUTION 1 rui p in affected eye every 3 hours while awake x 7 days POLYTRIM 1000 0-0.1 UNIT/ML-% OPHTHALMIC SOLUTION 938795 POLYMYXIN B-TRIMETHOPRIM Inactive COUMADIN 4 MG ORAL TABLET 1 tablet daily COUMADIN 4 MG ORAL TABLET 953919 WARFARIN SODIUM Inactive CLONIDINE HCL 0.1 MG ORAL TABLET 1 po bid 7 days, then 1/2 t ab po bid 7 days CLONIDINE HCL 0.1 MG ORAL TABLET 041135 CLONIDIN E HCL Inactive ALLOPURINOL 300 MG ORAL TABLET Take 1 tablet by mouth daily 2012 ALLOPURINOL 300 MG ORAL TABLET 044299 ALLOPURINOL I nactive MECLIZINE HCL 25 MG ORAL TABLET 1 po tid 3 days, then 1/2 ta b tid 3 days MECLIZINE HCL 25 MG ORAL TABLET 230205 MECLIZINE HCL Inactive AMLODIPINE BESYLATE 5 MG ORAL TABLET 1 tablet by mouth daily 201 01/20/04 AMLODIPINE BESYLATE 5 MG ORAL TABLET 912045 AMLODIPINE BESYLATE Inactive KEFLEX 500 MG ORAL CAPSULE 1 po qid K EFLEX 500 MG ORAL CAPSULE 246234 CEPHALEXIN Inactive COLCRYS 0.6 MG ORAL TABLET 1 tab qid prn gout COLCRYS 0.6 MG ORAL TABLET 417570 COLCHICINE Inactive FAMOTIDINE 20 MG ORAL TABLET by mouth twice a day 2017 FAMOTIDINE 20 MG ORAL TABLET 885903 FAMOTIDINE Inactive GLIMEPIRIDE 2 MG ORAL TABLET 1 po BID GLIMEPIRIDE 2 MG ORAL TABLET 610506 GLIMEPIRIDE Inactive LOVENOX 100 MG/ML SUBCUTANEOUS SOLUTION One injection twice a da y LOVENOX 100 MG/ML SUBCUTANEOUS SOLUTION 126889 ENOXAPAR IN SODIUM Inactive PREDNISONE 20 MG ORAL TABLET 2 tabs daily for 3 days 1 tab d aily for 3 days PREDNISONE 20 MG ORAL TABLET 068592 PREDNISONE Inactive Advance Directives Directive Description Start [...] mg/dL Encounters Code Encounter Date Provider Facility CPT-83136 [id number] Vst-Est Level IV 16:21:22 CDT Bru robinson Ambrose [facility] CPT-56402 Level 3 Est. Patient 15:18:36 CDT Becky anderson [facility] CPT-45828 [id number] Vst-Est Level IV 10:06:35 CDT Bru robinson Ambrose [facility] CPT-42946 [id number] Vst-Est Level IV 10:52:00 STEAM ENGINEER Stephy Ambrose [facility] CPT-20451 Level 3 Est. Patient 18:25:53 CDT Mitch luis [facility] CPT-17214 Level 3 Est. Patient 19:43:34 CDT Mitch luis [facility] CPT-13028 Level 4 Est. Patient 09:30:18 CDT Mitch luis [facility] CPT-07124 Level 3 Est. Patient 15:10:14 CDT Devonjustincarlitos kamara [facility]-80747 Level 3 Est. Patient 15:03:46 CDT Joe kamara [facility] CPT-98754 Level 3 Est. Patient 14:21:06 CDT Mitch Ambrose L ee [facility]-28684 Level 3 Est. Patient 14:52:06 CDT Joe Jason kamara [facility] CPT-76146 Level 3 Est. Patient 09:34:30 STEAM ENGINEER Mitch Ambrose L ee [facility]-69482 Level 3 Est. Patient 09:37:15 CDT Mitch Ambrose L ee [facility] CPT-68678 Level 3 Est. Patient 17:01:00 STEAM ENGINEER Mitch W L ee [facility] CPT-01534 Level 3 Est. Patient 13:53:19 STEAM ENGINEER Mitch W L ee [facility] CPT-27707 Level 3 Est. Patient 19:19:37 STEAM ENGINEER Mitch W L ee [facility] CPT-25471 Level 3 Est. Patient 13:25:53 STEAM ENGINEER Tavo toure MD [facility]-79486 Level 3 Est. Patient 18:17:28 CDT Mitch W L ee [facility] CPT-71498 Level 3 Est. Patient 15:22:57 CDT Mitch W L ee [facility] CPT-81996 Level 3 Est. Patient 18:21:50 CDT Mitch W L ee [facility]-57779 Level 3 Est. Patient 18:20:38 CDT Mitch W L ee [facility] CPT-89874 Level 3 Est. Patient 15:37:55 CDT Mitch W L ee [facility] CPT-78100 Level 2 Est. Patient 15:54:44 CDT Carmine benton MD [facility] CPT-43216 Level 3 Est. Patient 21:46:01 STEAM ENGINEER Mitch Arnol Nona luis [facility] CPT-14343 Level 3 Est. Patient 22:15:50 CDT Mitch luis [facility] CPT-24399 Level 3 Est. Patient 10:48:15 CDT Mitch luis [facility] CPT-62833 Level 3 Est. Patient 23:20:57 CDT Tavo toure MD [facility] CPT-91274 Level 3 Est. Patient 16:26:13 CDT Mitch luis [facility] Procedures Code Procedure Name Date Entry Date Standard Desc ription CPT-64624 Venous Duplex Left Leg XRAY USE ONLY 10:43:10 CDT CPT-28574 Venipuncture Draw Fee 17:04:55 CDT CPT-23335 Venipuncture Draw Fee 17:20:50 CDT CPT-77860 Venipuncture Draw Fee 18:00:48 CDT CPT-15448 Venipuncture Draw Fee 14:56:20 CDT CPT-JTINJ Asp/Joint Injection 18:47:02 CDT CPT-12439 Venipuncture Draw Fee 09:26:17 CDT CPT-49796 PT/INR - LAB USE ONLY 13:32:49 STEAM ENGINEER CPT-75543 Venipuncture Draw Fee 13:32:49 STEAM ENGINEER CPT-41763 PT/INR - LAB USE ONLY 10:34:49 STEAM ENGINEER CPT-66853 Venipuncture Draw Fee 10:34:48 STEAM ENGINEER CPT-70757 PT/INR - LAB USE ONLY 09:22:03 STEAM ENGINEER CPT-98300 Venipuncture Draw Fee 09:22:02 STEAM ENGINEER CPT-54305 Hemoccult IFOBT - LAB USE ONLY 10:27:22 CDT CPT-37669 Venipuncture Draw Fee 08:27:08 CDT CPT-47965 Liver Profile - LAB USE ONLY 08:27:07 CDT 2 CPT-72458 Microalbumin - LAB USE ONLY 08:27:07 CDT 20 25/05/09 CPT-71532 PT/INR - LAB USE ONLY 08:27:07 CDT CPT-06126 HGBA1C - LAB USE ONLY 08:27:07 CDT CPT-69524 CBC - LAB USE ONLY 08:27:07 CDT CPT-70784 Venipuncture Draw Fee 11:09:14 CDT CPT-76302 Venipuncture Draw Fee 08:32:21 STEAM ENGINEER CPT-16677 Venipuncture Draw Fee 09:38:56 STEAM ENGINEER CPT-79767 No Charge Offi Visit 21:36:07 CDT 1 CPT-81973 Venipuncture Draw Fee 10:13:28 STEAM ENGINEER CPT-34630 Venipuncture Draw Fee 08:31:11 CDT CPT-70875 Aspir/Inject Med Joint 18:17:28 CDT CPT-18818 Venipuncture Draw Fee 10:13:30 CDT CPT-98249 Venipuncture Draw Fee 08:31:43 STEAM ENGINEER CPT-JTINJ Joint Injection 18:34:50 CDT CPT-80215 Knee 3V 12:25:09 CDT CPT-46025 Venipuncture Draw Fee 12:15:57 CDT CPT-060 Medical Surveillance Exam 21:31:43 CDT 2011 CPT-23035 Venipuncture Draw Fee 08:32:05 STEAM ENGINEER CPT-OV Office Visit 18:19:06 CDT
--- OUTSIDE RECORDS SUMMARY | 2020-01-18 13:49 | XMS REPORT | Clinical Summary ---
Author Author Admin, Mitch Leon Organization [facility] [employer] Address Unknown Phone Unavailable Allergies, Adverse Reactions, [...] Coronary atherosclerosis of unspecified type of vessel, [place] or graft EDEMA 782.3 Resolved Mitch Urbina [...] Status Provider Patient Instruction KEFLEX 500 MG ORAL CAPSULE 1 capsule by mouth three times da rocky x10 days CEPHALEXIN 79748930113 Active Maria Rivas RN Active METOPROLOL TARTRATE TABS 50MG TAKE 1 TABLET TWICE A DAY ([facility] WORK) METOPROLOL TARTRATE 28561921359 Active Maria Briones Active DOXAZOSIN MESYLATE 2 MG ORAL TABLET 1 po q day for pr ostate and blood pressure DOXAZOSIN MESYLATE 13450141639 Active Mitch Urbina DO Active LOSARTAN TABS 100MG TAKE 1 TABLET DAILY FOR BLOOD PRESSURE LOSARTAN POTASSIUM 42952882916 Active Maria Rivas RN Active FLUTICASONE PROPIONATE 50 MCG/ACT NASAL SUSPENSION 1 s pray each nostril twice daily for 1 week, then once daily FLUTICASONE SC OPIONATE 52254868843 Active 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 PREDNISONE 20 MG ORAL TABLET 2 tabs daily for 3 days 1 tab d aily for 3 days PREDNISONE 50879197016 No Longer Active Becky 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 MINOXIDIL 2.5 MG ORAL TABLET 1 tablet twice daily for high b lood pressure MINOXIDIL 43362249017 Active Mitch Urbina DO Ac tive METFORMIN HCL ER 500 MG ORAL TABLET EXTENDED RELEASE 2 4 HOUR 2 tablets by mouth twice daily METFORMIN HCL 76790327066 Active Mitch W Carlitos DO Active GLIMEPIRIDE 4 MG ORAL TABLET 1 tablet by mouth twice daily f or diabetes GLIMEPIRIDE 97855715947 Active Mitch Urbina DO Active GLIMEPIRIDE 2 MG ORAL TABLET 1 po BID GLIMEPI RIDE 06439939019 No Longer Active Mitch Urbina DO Active AMLODIPINE BESYLATE 5 MG ORAL TABLET 1 tablet by mouth daily AMLODIPINE BESYLATE 43450061851 Active Mitch Urbina DO Active PROVIGIL 200 MG ORAL TABLET 1/2 tab po q day MODA FINIL 78690763665 Active Renee Oconnor LPN Active FAMOTIDINE 20 MG ORAL TABLET by mouth twice a day 2017 FAMOTIDINE 25553515778 No Longer Active Mitch Urbina DO Active COLCRYS 0.6 MG ORAL TABLET 1 tab qid prn gout C OLCHICINE 99874710036 No Longer Active Mitch Urbina DO Active KEFLEX 500 MG ORAL CAPSULE 1 po qid CEPHALEXI N 91499979195 No Longer Active Mitch Urbina DO Active AMLODIPINE BESYLATE 5 MG ORAL TABLET 1 tablet by mouth daily 201 01/20/04 AMLODIPINE BESYLATE 72819778411 No Longer Active Joe fulton APRN Active MITIGARE 0.6 MG ORAL CAPSULE 2 capsules at onset of go ut pain, then take one capsule at 1 hour if symptoms persist. COLCHICINE 59 382546971 Active Mitch Urbina DO Active COUMADIN 1 MG ORAL TABLET 2 tabs orally daily with the 5mg tab to equal 7mg daily WARFARIN SODIUM 58132580377 Active Renee Oconnor LPN Active INVOKANA 100 MG ORAL TABLET 1 tablet orally daily CANAGLIFLOZIN 95075929457 Active Mitch Urbina DO Active MECLIZINE HCL 25 MG ORAL TABLET 1 po tid 3 days, then 1/2 ta b tid 3 days MECLIZINE HCL 19994221852 No Longer Active Corey SEGURA Active ALLOPURINOL 300 MG ORAL TABLET Take 1 tablet by mouth daily 2012 ALLOPURINOL 65413854574 No Longer Active Corey SEGURA Active CLONIDINE HCL 0.1 MG ORAL TABLET 1 po bid 7 days, then 1/2 t ab po bid 7 days CLONIDINE HCL 01715667636 No Longer Active Corey SEGURA Active COUMADIN 5 MG ORAL TABLET 1 tab PO daily WARFAR IN SODIUM 78161726367 Active Renee Oconnor LPN Active COUMADIN 4 MG ORAL TABLET 1 tablet daily WARFAR IN SODIUM 82695444817 No Longer Active Corey SEGURA Active POLYTRIM 78926-1.1 UNIT/ML-% OPHTHALMIC SOLUTION 1 rui p in affected eye every 3 hours while awake x 7 days POLYMYXIN B-TRIMETHOP RIM 73040356065 No Longer Active Corey SEGURA Active LOSARTAN POTASSIUM-HCTZ 100-12.5 MG ORAL TABLET 1 by m outh daily for high blood pressure LOSARTAN POTASSIUM-HCTZ 13273898276 No Longer A ctive Mitch Urbina DO Active LISINOPRIL-HYDROCHLOROTHIAZIDE 20-12.5 MG ORAL TABLET 1 tab by m outh daily LISINOPRIL-HYDROCHLOROTHIAZIDE 27201658448 No Longer Active Mitch Urbina DO Active LISINOPRIL 20 MG ORAL TABLET 1 tab po at HS LIS INOPRIL 45742574872 No Longer Active Mitch Urbina DO Active COUMADIN 5 MG ORAL TABLET 1 by mouth every other day 2 WARFARIN SODIUM 82718491299 No Longer Active Mitch Urbina DO Active COUMADIN 6 MG ORAL TABLET 1 by mouth every other day 2 WARFARIN SODIUM 69311010379 No Longer Active Mitch Urbina DO Active SIMVASTATIN 40 MG ORAL TABLET 1 tab daily at bedtime SIMVASTATIN 72896530574 Active Maria Rivas RN Active SIMVASTATIN 20 MG ORAL TABLET 1 tab daily at bedtime 2 SIMVASTATIN 10222103162 No Longer Active Mitch Urbina DO Active LOVENOX 100 MG/ML SUBCUTANEOUS SOLUTION One injection twice a da y ENOXAPARIN SODIUM 25907563663 No Longer Active Carmine Yusuf MD Active JANUVIA 50 MG ORAL TABLET Take one by mouth daily SITAGLIPTIN PHOSPHATE 31922907324 Active Renee Oconnor LPN Active JANUVIA 100 MG ORAL TABLET 1/2 by mouth every day 2011 SITAGLIPTIN PHOSPHATE 06564296962 No Longer Active Bijal Segal RN Acti ve METFORMIN HCL 500 MG ORAL TABLET 2 by mouth twice daily METFORMIN HCL 31548792519 No Longer Active Renee Oconnor LPN Active COLCRYS 0.6 MG ORAL TABLET 1 po q 6 hours prn gout pain COLCHICINE 82359765874 No Longer Active Camila Reese Active LISINOPRIL 5 MG ORAL TABLET 1 by mouth every day 11/17 LISINOPRIL 41074487194 No Longer Active Nguyen Perez Active KLOR-CON 20 MEQ ORAL PACKET Take one by mouth daily 20 09/10/08 POTASSIUM CHLORIDE 28458384879 No Longer Active Nguyen Perez Active FUROSEMIDE 40 MG ORAL TABLET 1 by mouth daily F UROSEMIDE 06842863263 No Longer Active Nguyen Perez Active PROVIGIL 100 MG ORAL TABLET Take one by mouth daily 20 08/20/04 MODAFINIL 79806876509 No Longer Active Mitch Urbina DO Active BACTRIM DS 800-160 MG ORAL TABLET 1 tab by mouth twice daily 201 10/19/09 TRIMETHOPRIM-SULFAMETHOXAZOLE 67366262581 No Longer Active Elian Hays MD Active ADULT ASPIRIN LOW STRENGTH 81 MG ORAL TABLET DISINTEGR ATING 1 by mouth every daily ASPIRIN 19224821733 Active Mitch Urbina DO Ac tive BACTRIM DS 800-160 MG ORAL TABLET 1 tab by mouth twice daily 201 10/19/09 BACTRIM DS 800-160 MG ORAL TABLET 527602 TRIMETHOPRIM-SULFAMETHOXAZOLE Inactive PROVIGIL 100 MG ORAL TABLET Take one by mouth daily 20 08/20/04 PROVIGIL 100 MG ORAL TABLET 739859 MODAFINIL Inactive FUROSEMIDE 40 MG ORAL TABLET 1 by mouth daily FUROSEMIDE 40 MG ORAL TABLET 242957 FUROSEMIDE Inactive KLOR-CON 20 MEQ ORAL PACKET Take one by mouth daily 09/10/08 KLOR- CON 20 MEQ ORAL PACKET 1488407 POTASSIUM CHLORIDE Inactive LISINOPRIL 5 MG ORAL TABLET 1 by mouth every day 11/17 LISINOPRIL 5 MG ORAL TABLET 589662 LISINOPRIL Inactive COLCRYS 0.6 MG ORAL TABLET 1 po q 6 hours prn gout pain COLCRYS 0.6 MG ORAL TABLET 846764 COLCHICINE Inactive JANUVIA 100 MG ORAL TABLET 1/2 by mouth every day 2011 JANUVIA 100 MG ORAL TABLET SITAGLIPTIN PHOSPHATE Inactive SIMVASTATIN 20 MG ORAL TABLET 1 tab daily at bedtime 2 SIMVASTATIN 20 MG ORAL TABLET 225495 SIMVASTATIN Inactive COUMADIN 6 MG ORAL TABLET 1 by mouth every other day COUMADIN 6 MG ORAL TABLET 469030 WARFARIN SODIUM Inactive COUMADIN 5 MG ORAL TABLET 1 by mouth every other day COUMADIN 5 MG ORAL TABLET 998443 WARFARIN SODIUM Inactive LISINOPRIL 20 MG ORAL TABLET 1 tab po at HS LISINOPRIL 20 MG ORAL TABLET 391711 LISINOPRIL Inactive LISINOPRIL-HYDROCHLOROTHIAZIDE 20-12.5 MG ORAL TABLET 1 tab by m outh daily LISINOPRIL-HYDROCHLOROTHIAZIDE 20-12.5 MG ORAL TABLET 498950 LISINOPRIL-HYDROCHLOROTHIAZIDE Inactive POLYTRIM 52282-6.1 UNIT/ML-% OPHTHALMIC SOLUTION 1 rui p in affected eye every 3 hours while awake x 7 days POLYTRIM 1000 0-0.1 UNIT/ML-% OPHTHALMIC SOLUTION 274803 POLYMYXIN B-TRIMETHOPRIM Inactive COUMADIN 4 MG ORAL TABLET 1 tablet daily COUMADIN 4 MG ORAL TABLET 184585 WARFARIN SODIUM Inactive CLONIDINE HCL 0.1 MG ORAL TABLET 1 po bid 7 days, then 1/2 t ab po bid 7 days CLONIDINE HCL 0.1 MG ORAL TABLET 867049 CLONIDIN E HCL Inactive ALLOPURINOL 300 MG ORAL TABLET Take 1 tablet by mouth daily 2012 ALLOPURINOL 300 MG ORAL TABLET 307173 ALLOPURINOL I nactive MECLIZINE HCL 25 MG ORAL TABLET 1 po tid 3 days, then 1/2 ta b tid 3 days MECLIZINE HCL 25 MG ORAL TABLET 167970 MECLIZINE HCL Inactive AMLODIPINE BESYLATE 5 MG ORAL TABLET 1 tablet by mouth daily 201 01/20/04 AMLODIPINE BESYLATE 5 MG ORAL TABLET 005839 AMLODIPINE BESYLATE Inactive KEFLEX 500 MG ORAL CAPSULE 1 po qid K EFLEX 500 MG ORAL CAPSULE 259086 CEPHALEXIN Inactive COLCRYS 0.6 MG ORAL TABLET 1 tab qid prn gout COLCRYS 0.6 MG ORAL TABLET 504306 COLCHICINE Inactive FAMOTIDINE 20 MG ORAL TABLET by mouth twice a day 2017 FAMOTIDINE 20 MG ORAL TABLET 638084 FAMOTIDINE Inactive GLIMEPIRIDE 2 MG ORAL TABLET 1 po BID GLIMEPIRIDE 2 MG ORAL TABLET 992993 GLIMEPIRIDE Inactive LOVENOX 100 MG/ML SUBCUTANEOUS SOLUTION One injection twice a da y LOVENOX 100 MG/ML SUBCUTANEOUS SOLUTION 629522 ENOXAPAR IN SODIUM Inactive PREDNISONE 20 MG ORAL TABLET 2 tabs daily for 3 days 1 tab d aily for 3 days PREDNISONE 20 MG ORAL TABLET 128296 PREDNISONE Inactive Advance Directives Directive Description Start [...] mg/dL Encounters Code Encounter Date Provider Facility CPT-91709 [id number] Vst-Est Level IV 16:21:22 CDT Bru ce W [facility] CPT-57831 Level 3 Est. Patient 15:18:36 CDT Becky anderson APRN [facility] CPT-68457 10542-Rus Vst-Est Level IV 10:06:35 CDT Bru ce W [facility] CPT-01386 04993-Cqt Vst-Est Level IV 10:52:00 PRODUCTION PLANNER Bru ce W [facility] CPT-23393 Level 3 Est. Patient 18:25:53 CDT Mitch Castellano [facility] CPT-86694 Level 3 Est. Patient 19:43:34 CDT Mitch W Nona luis [facility] CPT-17613 Level 4 Est. Patient 09:30:18 CDT Mitch luis [facility] CPT-99714 Level 3 Est. Patient 15:10:14 CDT Joe Gomez [facility]-83392 Level 3 Est. Patient 15:03:46 CDT Devonjustincarlitos Gomez [facility]-57816 Level 3 Est. Patient 14:21:06 CDT Mitch luis [facility] CPT-25390 Level 3 Est. Patient 14:52:06 CDT Joe Jason [facility]-93453 Level 3 Est. Patient 09:34:30 PRODUCTION PLANNER Mitch luis [facility] CPT-10189 Level 3 Est. Patient 09:37:15 CDT Mitch luis [facility]-09209 Level 3 Est. Patient 17:01:00 PRODUCTION PLANNER Mitch luis [facility] CPT-75085 Level 3 Est. Patient 13:53:19 PRODUCTION PLANNER Mitch luis [facility] CPT-53156 Level 3 Est. Patient 19:19:37 PRODUCTION PLANNER Mitch luis [facility] CPT-87715 Level 3 Est. Patient 13:25:53 PRODUCTION PLANNER Tavo toure MD [facility] CPT-51020 Level 3 Est. Patient 18:17:28 CDT Mitch luis [facility] CPT-52801 Level 3 Est. Patient 15:22:57 CDT Mitch luis [facility] CPT-93361 Level 3 Est. Patient 18:21:50 CDT Mitch luis [facility] CPT-50552 Level 3 Est. Patient 18:20:38 CDT Mitch luis [facility] CPT-43585 Level 3 Est. Patient 15:37:55 CDT Mitch luis [facility] CPT-75382 Level 2 Est. Patient 15:54:44 CDT Carmine benton MD [facility] CPT-74366 Level 3 Est. Patient 21:46:01 PRODUCTION PLANNER Mitch luis [facility] CPT-17068 Level 3 Est. Patient 22:15:50 CDT Mitch luis [facility] CPT-05000 Level 3 Est. Patient 10:48:15 CDT Mitch luis [facility] CPT-98209 Level 3 Est. Patient 23:20:57 CDT Tavo toure MD [facility] CPT-66880 Level 3 Est. Patient 16:26:13 CDT Mitch luis [facility] Procedures Code Procedure Name Date Entry Date Standard Desc ription CPT-26121 Venous Duplex Left Leg XRAY USE ONLY 10:43:10 CDT CPT-56129 Venipuncture Draw Fee 17:04:55 CDT CPT-20229 Venipuncture Draw Fee 17:20:50 CDT CPT-48889 Venipuncture Draw Fee 18:00:48 CDT CPT-56209 Venipuncture Draw Fee 14:56:20 CDT CPT-JTINJ Asp/Joint Injection 18:47:02 CDT CPT-78054 Venipuncture Draw Fee 09:26:17 CDT CPT-75309 PT/INR - LAB USE ONLY 13:32:49 PRODUCTION PLANNER CPT-09361 Venipuncture Draw Fee 13:32:49 PRODUCTION PLANNER CPT-24746 PT/INR - LAB USE ONLY 10:34:49 PRODUCTION PLANNER CPT-60510 Venipuncture Draw Fee 10:34:48 PRODUCTION PLANNER CPT-34100 PT/INR - LAB USE ONLY 09:22:03 PRODUCTION PLANNER CPT-68101 Venipuncture Draw Fee 09:22:02 PRODUCTION PLANNER CPT-44618 Hemoccult IFOBT - LAB USE ONLY 10:27:22 CDT CPT-87432 Venipuncture Draw Fee 08:27:08 CDT CPT-00709 Liver Profile - LAB USE ONLY 08:27:07 CDT 2 CPT-65991 Microalbumin - LAB USE ONLY 08:27:07 CDT 20 25/05/09 CPT-77800 PT/INR - LAB USE ONLY 08:27:07 CDT CPT-91875 HGBA1C - LAB USE ONLY 08:27:07 CDT CPT-39668 CBC - LAB USE ONLY 08:27:07 CDT CPT-54537 Venipuncture Draw Fee 11:09:14 CDT CPT-57616 Venipuncture Draw Fee 08:32:21 PRODUCTION PLANNER CPT-48805 Venipuncture Draw Fee 09:38:56 PRODUCTION PLANNER CPT-65631 No Charge Offi Visit 21:36:07 CDT 1 CPT-95903 Venipuncture Draw Fee 10:13:28 PRODUCTION PLANNER CPT-01347 Venipuncture Draw Fee 08:31:11 CDT CPT-46206 Aspir/Inject Med Joint 18:17:28 CDT CPT-07605 Venipuncture Draw Fee 10:13:30 CDT CPT-40556 Venipuncture Draw Fee 08:31:43 PRODUCTION PLANNER CPT-JTINJ Joint Injection 18:34:50 CDT CPT-30264 Knee 3V 12:25:09 CDT CPT-16420 Venipuncture Draw Fee 12:15:57 CDT CPT-060 Medical Surveillance Exam 21:31:43 CDT 2011 CPT-42737 Venipuncture Draw Fee 08:32:05 PRODUCTION PLANNER CPT-OV Office Visit 18:19:06 CDT
--- OUTSIDE RECORDS SUMMARY | 2020-01-18 13:50 | XMS REPORT | Clinical Summary ---
Author Author Admin, Mitch Leon Organization [facility] [employer] Address Unknown Phone Unavailable Allergies, Adverse Reactions, [...] Coronary atherosclerosis of unspecified type of vessel, [place] or graft EDEMA 782.3 Resolved Mitch Urbina [...] three times da rocky x10 days CEPHALEXIN 85045093314 Active Maria Rivas RN Active METOPROLOL TARTRATE TABS 50MG TAKE 1 TABLET TWICE A DAY ([facility] WORK) METOPROLOL TARTRATE 93719485761 Active Maria Briones Active DOXAZOSIN MESYLATE 2 MG ORAL TABLET 1 po q day for pr ostate and blood pressure DOXAZOSIN MESYLATE 74376796485 Active Mitch Urbina DO Active LOSARTAN TABS 100MG TAKE 1 TABLET DAILY FOR BLOOD PRESSURE LOSARTAN POTASSIUM 04550133672 Active Maria Rivas RN Active FLUTICASONE PROPIONATE 50 MCG/ACT NASAL SUSPENSION 1 s pray each nostril twice daily for 1 week, then once daily FLUTICASONE MN OPIONATE 41584734429 Active Becky Sell SCOW DERRICK OPERATOR Active PREDNISONE 20 MG ORAL TABLET 2 tabs daily for 3 days 1 tab d aily for 3 days PREDNISONE 70521826156 No Longer Active Becky Sell SCOW DERRICK OPERATOR Active MINOXIDIL 2.5 MG ORAL TABLET 1 tablet twice daily for high b lood pressure MINOXIDIL 74500836579 Active Mitch Urbina DO Ac tive METFORMIN HCL ER 500 MG ORAL TABLET EXTENDED RELEASE 2 4 HOUR 2 tablets by mouth twice daily METFORMIN HCL 96218228738 Active Mitch W Carl[place] DO Active GLIMEPIRIDE 4 MG ORAL TABLET 1 tablet by mouth twice daily f or diabetes GLIMEPIRIDE 82126752050 Active Mitch Urbnia DO Active GLIMEPIRIDE 2 MG ORAL TABLET 1 po BID GLIMEPI RIDE 44249664582 No Longer Active Mitch Urbina DO Active AMLODIPINE BESYLATE 5 MG ORAL TABLET 1 tablet by mouth daily AMLODIPINE BESYLATE 89590167616 Active Mitch Urbina DO Active PROVIGIL 200 MG ORAL TABLET 1/2 tab po q day MODA FINIL 37636525378 Active Renee Oconnor LPN Active FAMOTIDINE 20 MG ORAL TABLET by mouth twice a day 2017 FAMOTIDINE 10547770793 No Longer Active Mitch Urbina DO Active COLCRYS 0.6 MG ORAL TABLET 1 tab qid prn gout C OLCHICINE 65115922915 No Longer Active Mitch Urbina DO Active KEFLEX 500 MG ORAL CAPSULE 1 po qid CEPHALEXI N 63188701952 No Longer Active Mitch Urbina DO Active AMLODIPINE BESYLATE 5 MG ORAL TABLET 1 tablet by mouth daily 201 01/20/04 AMLODIPINE BESYLATE 21711340008 No Longer Active Joe fulton APRN Active MITIGARE 0.6 MG ORAL CAPSULE 2 capsules at onset of go ut pain, then take one capsule at 1 hour if symptoms persist. COLCHICINE 59 093197284 Active Mitch Urbina DO Active COUMADIN 1 MG ORAL TABLET 2 tabs orally daily with the 5mg tab to equal 7mg daily WARFARIN SODIUM 87343622787 Active Renee Oconnor LPN Active INVOKANA 100 MG ORAL TABLET 1 tablet orally daily CANAGLIFLOZIN 25912111245 Active Mitch Urbina DO Active MECLIZINE HCL 25 MG ORAL TABLET 1 po tid 3 days, then 1/2 ta b tid 3 days MECLIZINE HCL 75721916700 No Longer Active Corey SEGURA Active ALLOPURINOL 300 MG ORAL TABLET Take 1 tablet by mouth daily 2012 ALLOPURINOL 00957050911 No Longer Active Corey SEGURA Active CLONIDINE HCL 0.1 MG ORAL TABLET 1 po bid 7 days, then 1/2 t ab po bid 7 days CLONIDINE HCL 31875708404 No Longer Active Corey SEGURA Active COUMADIN 5 MG ORAL TABLET 1 tab PO daily WARFAR IN SODIUM 08011438939 Active Renee Oconnor LPN Active COUMADIN 4 MG ORAL TABLET 1 tablet daily WARFAR IN SODIUM 40676902492 No Longer Active Corey SEGURA Active POLYTRIM 55529-9.1 UNIT/ML-% OPHTHALMIC SOLUTION 1 rui p in affected eye every 3 hours while awake x 7 days POLYMYXIN B-TRIMETHOP RIM 75357727073 No Longer Active Corey SEGURA Active LOSARTAN POTASSIUM-HCTZ 100-12.5 MG ORAL TABLET 1 by m outh daily for high blood pressure LOSARTAN POTASSIUM-HCTZ 08509980511 No Longer A ctive Mitch Urbina DO Active LISINOPRIL-HYDROCHLOROTHIAZIDE 20-12.5 MG ORAL TABLET 1 tab by m outh daily LISINOPRIL-HYDROCHLOROTHIAZIDE 33256911407 No Longer Active Mitch Urbina DO Active LISINOPRIL 20 MG ORAL TABLET 1 tab po at HS LIS INOPRIL 69111832835 No Longer Active Mitch Urbina DO Active COUMADIN 5 MG ORAL TABLET 1 by mouth every other day 2 WARFARIN SODIUM 11928675158 No Longer Active Mitch Urbina DO Active COUMADIN 6 MG ORAL TABLET 1 by mouth every other day 2 WARFARIN SODIUM 38931982017 No Longer Active Mitch Urbina DO Active SIMVASTATIN 40 MG ORAL TABLET 1 tab daily at bedtime SIMVASTATIN 42410401440 Active Maria Rivas RN Active SIMVASTATIN 20 MG ORAL TABLET 1 tab daily at bedtime 2 SIMVASTATIN 39233870595 No Longer Active Mitch Urbina DO Active LOVENOX 100 MG/ML SUBCUTANEOUS SOLUTION One injection twice a da y ENOXAPARIN SODIUM 60527795734 No Longer Active Carmine Yusuf MD Active JANUVIA 50 MG ORAL TABLET Take one by mouth daily SITAGLIPTIN PHOSPHATE 58373901187 Active Renee Oconnor LPN Active JANUVIA 100 MG ORAL TABLET 1/2 by mouth every day 2011 SITAGLIPTIN PHOSPHATE 94165064598 No Longer Active Bijal Segal RN Acti ve METFORMIN HCL 500 MG ORAL TABLET 2 by mouth twice daily METFORMIN HCL 49275033789 No Longer Active Renee Oconnor LPN Active COLCRYS 0.6 MG ORAL TABLET 1 po q 6 hours prn gout pain COLCHICINE 63441965539 No Longer Active Camila Reese Active LISINOPRIL 5 MG ORAL TABLET 1 by mouth every day 11/17 LISINOPRIL 72021798836 No Longer Active Nguyen Perez Active KLOR-CON 20 MEQ ORAL PACKET Take one by mouth daily 20 09/10/08 POTASSIUM CHLORIDE 98851291178 No Longer Active Nguyen Perez Active FUROSEMIDE 40 MG ORAL TABLET 1 by mouth daily F UROSEMIDE 35268488886 No Longer Active Nguyen Perez Active PROVIGIL 100 MG ORAL TABLET Take one by mouth daily 20 08/20/04 MODAFINIL 54453456400 No Longer Active Mitch Urbina DO Active BACTRIM DS 800-160 MG ORAL TABLET 1 tab by mouth twice daily 201 10/19/09 TRIMETHOPRIM-SULFAMETHOXAZOLE 31386253149 No Longer Active Elian Hays MD Active ADULT ASPIRIN LOW STRENGTH 81 MG ORAL TABLET DISINTEGR ATING 1 by mouth every daily ASPIRIN 46427915936 Active Mitch Urbina DO Ac tive BACTRIM DS 800-160 MG ORAL TABLET 1 tab by mouth twice daily 201 10/19/09 BACTRIM DS 800-160 MG ORAL TABLET 144472 TRIMETHOPRIM-SULFAMETHOXAZOLE Inactive PROVIGIL 100 MG ORAL TABLET Take one by mouth daily 20 08/20/04 PROVIGIL 100 MG ORAL TABLET 096236 MODAFINIL Inactive FUROSEMIDE 40 MG ORAL TABLET 1 by mouth daily FUROSEMIDE 40 MG ORAL TABLET 059476 FUROSEMIDE Inactive KLOR-CON 20 MEQ ORAL PACKET Take one by mouth daily 09/10/08 KLOR- CON 20 MEQ ORAL PACKET 8177760 POTASSIUM CHLORIDE Inactive LISINOPRIL 5 MG ORAL TABLET 1 by mouth every day 11/17 LISINOPRIL 5 MG ORAL TABLET 444961 LISINOPRIL Inactive COLCRYS 0.6 MG ORAL TABLET 1 po q 6 hours prn gout pain COLCRYS 0.6 MG ORAL TABLET 290335 COLCHICINE Inactive JANUVIA 100 MG ORAL TABLET 1/2 by mouth every day 2011 JANUVIA 100 MG ORAL TABLET SITAGLIPTIN PHOSPHATE Inactive SIMVASTATIN 20 MG ORAL TABLET 1 tab daily at bedtime 2 SIMVASTATIN 20 MG ORAL TABLET 371076 SIMVASTATIN Inactive COUMADIN 6 MG ORAL TABLET 1 by mouth every other day COUMADIN 6 MG ORAL TABLET 901238 WARFARIN SODIUM Inactive COUMADIN 5 MG ORAL TABLET 1 by mouth every other day COUMADIN 5 MG ORAL TABLET 262196 WARFARIN SODIUM Inactive LISINOPRIL 20 MG ORAL TABLET 1 tab po at HS LISINOPRIL 20 MG ORAL TABLET 831903 LISINOPRIL Inactive LISINOPRIL-HYDROCHLOROTHIAZIDE 20-12.5 MG ORAL TABLET 1 tab by m outh daily LISINOPRIL-HYDROCHLOROTHIAZIDE 20-12.5 MG ORAL TABLET 703963 LISINOPRIL-HYDROCHLOROTHIAZIDE Inactive POLYTRIM 34375-0.1 UNIT/ML-% OPHTHALMIC SOLUTION 1 rui p in affected eye every 3 hours while awake x 7 days POLYTRIM 1000 0-0.1 UNIT/ML-% OPHTHALMIC SOLUTION 183813 POLYMYXIN B-TRIMETHOPRIM Inactive COUMADIN 4 MG ORAL TABLET 1 tablet daily COUMADIN 4 MG ORAL TABLET 651913 WARFARIN SODIUM Inactive CLONIDINE HCL 0.1 MG ORAL TABLET 1 po bid 7 days, then 1/2 t ab po bid 7 days CLONIDINE HCL 0.1 MG ORAL TABLET 708558 CLONIDIN E HCL Inactive ALLOPURINOL 300 MG ORAL TABLET Take 1 tablet by mouth daily 2012 ALLOPURINOL 300 MG ORAL TABLET 263912 ALLOPURINOL I nactive MECLIZINE HCL 25 MG ORAL TABLET 1 po tid 3 days, then 1/2 ta b tid 3 days MECLIZINE HCL 25 MG ORAL TABLET 158998 MECLIZINE HCL Inactive AMLODIPINE BESYLATE 5 MG ORAL TABLET 1 tablet by mouth daily 201 01/20/04 AMLODIPINE BESYLATE 5 MG ORAL TABLET 301051 AMLODIPINE BESYLATE Inactive KEFLEX 500 MG ORAL CAPSULE 1 po qid K EFLEX 500 MG ORAL CAPSULE 183203 CEPHALEXIN Inactive COLCRYS 0.6 MG ORAL TABLET 1 tab qid prn gout COLCRYS 0.6 MG ORAL TABLET 091482 COLCHICINE Inactive FAMOTIDINE 20 MG ORAL TABLET by mouth twice a day 2017 FAMOTIDINE 20 MG ORAL TABLET 609819 FAMOTIDINE Inactive GLIMEPIRIDE 2 MG ORAL TABLET 1 po BID GLIMEPIRIDE 2 MG ORAL TABLET 634445 GLIMEPIRIDE Inactive LOVENOX 100 MG/ML SUBCUTANEOUS SOLUTION One injection twice a da y LOVENOX 100 MG/ML SUBCUTANEOUS SOLUTION 615113 ENOXAPAR IN SODIUM Inactive PREDNISONE 20 MG ORAL TABLET 2 tabs daily for 3 days 1 tab d aily for 3 days PREDNISONE 20 MG ORAL TABLET 068695 PREDNISONE Inactive Advance Directives Directive Description Start [...] mg/dL Encounters Code Encounter Date Provider Facility CPT-23001 [id number] Vst-Est Level IV 16:21:22 CDT Bru ce W [facility] CPT-80228 Level 3 Est. Patient 15:18:36 CDT Becky anderson APRN [facility] CPT-65573 [id number] Vst-Est Level IV 10:06:35 CDT Bru ce W [facility] CPT-84875 [id number] Vst-Est Level IV 10:52:00 PRESIDENT/GM PRODUCTION & LIVE EXPERIENCES Bru ce W [facility] CPT-33248 Level 3 Est. Patient 18:25:53 CDT Mitch Castellano [facility] CPT-53602 Level 3 Est. Patient 19:43:34 CDT Mitch W Nona luis [facility] CPT-03529 Level 4 Est. Patient 09:30:18 CDT Mitch luis [facility] CPT-23522 Level 3 Est. Patient 15:10:14 CDT [facility] Level 3 Est. Patient 15:03:46 CDT [facility] Level 3 Est. Patient 14:21:06 CDT Mitch luis [facility] CPT-69487 Level 3 Est. Patient 14:52:06 CDT [facility] Level 3 Est. Patient 09:34:30 PRESIDENT/GM PRODUCTION & LIVE EXPERIENCES Mitch luis [facility] CPT-43405 Level 3 Est. Patient 09:37:[address] [facility]-17366 Level 3 Est. Patient 17:01:00 PRESIDENT/GM PRODUCTION & LIVE EXPERIENCES Mitch luis [facility] CPT-67706 Level 3 Est. Patient 13:53:19 PRESIDENT/GM PRODUCTION & LIVE EXPERIENCES Mitch luis [facility] CPT-11122 Level 3 Est. Patient 19:19:37 PRESIDENT/GM PRODUCTION & LIVE EXPERIENCES Mitch luis [facility] CPT-68768 Level 3 Est. Patient 13:25:53 PRESIDENT/GM PRODUCTION & LIVE EXPERIENCES Tavo toure MD [facility] CPT-35728 Level 3 Est. Patient 18:17:28 CDT Mitch luis [facility] CPT-71753 Level 3 Est. Patient 15:22:57 CDT Mitch luis [facility] CPT-08675 Level 3 Est. Patient 18:21:50 CDT Mitch luis [facility] CPT-76673 Level 3 Est. Patient 18:20:38 CDT Mitch luis [facility] CPT-15667 Level 3 Est. Patient 15:37:55 CDT Mitch luis [facility] CPT-14413 Level 2 Est. Patient 15:54:44 CDT Carmine benton MD [facility] CPT-70909 Level 3 Est. Patient 21:46:01 PRESIDENT/GM PRODUCTION & LIVE EXPERIENCES Mitch luis [facility] CPT-53429 Level 3 Est. Patient 22:15:50 CDT Mitch luis [facility] CPT-25541 Level 3 Est. Patient 10:48:15 CDT Mitch luis [facility] CPT-30484 Level 3 Est. Patient 23:20:57 CDT Tavo toure MD [facility] CPT-38532 Level 3 Est. Patient 16:26:13 CDT Mitch luis [facility] Procedures Code Procedure Name Date Entry Date Standard Desc ription CPT-86856 Venous Duplex Left Leg XRAY USE ONLY 10:43:10 CDT CPT-01413 Venipuncture Draw Fee 17:04:55 CDT CPT-73521 Venipuncture Draw Fee 17:20:50 CDT CPT-12576 Venipuncture Draw Fee 18:00:48 CDT CPT-63678 Venipuncture Draw Fee 14:56:20 CDT CPT-JTINJ Asp/Joint Injection 18:47:02 CDT CPT-63036 Venipuncture Draw Fee 09:26:17 CDT CPT-05678 PT/INR - LAB USE ONLY 13:32:49 PRESIDENT/GM PRODUCTION & LIVE EXPERIENCES CPT-58534 Venipuncture Draw Fee 13:32:49 PRESIDENT/GM PRODUCTION & LIVE EXPERIENCES CPT-87523 PT/INR - LAB USE ONLY 10:34:49 PRESIDENT/GM PRODUCTION & LIVE EXPERIENCES CPT-29570 Venipuncture Draw Fee 10:34:48 PRESIDENT/GM PRODUCTION & LIVE EXPERIENCES CPT-92175 PT/INR - LAB USE ONLY 09:22:03 PRESIDENT/GM PRODUCTION & LIVE EXPERIENCES CPT-58595 Venipuncture Draw Fee 09:22:02 PRESIDENT/GM PRODUCTION & LIVE EXPERIENCES CPT-30267 Hemoccult IFOBT - LAB USE ONLY 10:27:22 CDT CPT-13796 Venipuncture Draw Fee 08:27:08 CDT CPT-07108 Liver Profile - LAB USE ONLY 08:27:07 CDT 2 CPT-77296 Microalbumin - LAB USE ONLY 08:27:07 CDT 20 25/05/09 CPT-89063 PT/INR - LAB USE ONLY 08:27:07 CDT CPT-64634 HGBA1C - LAB USE ONLY 08:27:07 CDT CPT-54472 CBC - LAB USE ONLY 08:27:07 CDT CPT-38731 Venipuncture Draw Fee 11:09:14 CDT CPT-45137 Venipuncture Draw Fee 08:32:21 PRESIDENT/GM PRODUCTION & LIVE EXPERIENCES CPT-57368 Venipuncture Draw Fee 09:38:56 PRESIDENT/GM PRODUCTION & LIVE EXPERIENCES CPT-51827 No Charge Offi Visit 21:36:07 CDT 1 CPT-10012 Venipuncture Draw Fee 10:13:28 PRESIDENT/GM PRODUCTION & LIVE EXPERIENCES CPT-98842 Venipuncture Draw Fee 08:31:11 CDT CPT-89410 Aspir/Inject Med Joint 18:17:28 CDT CPT-86860 Venipuncture Draw Fee 10:13:30 CDT CPT-82086 Venipuncture Draw Fee 08:31:43 PRESIDENT/GM PRODUCTION & LIVE EXPERIENCES CPT-JTINJ Joint Injection 18:34:50 CDT CPT-10360 Knee 3V 12:25:09 CDT CPT-54161 Venipuncture Draw Fee 12:15:57 CDT CPT-060 Medical Surveillance Exam 21:31:43 CDT 2011 CPT-95519 Venipuncture Draw Fee 08:32:05 PRESIDENT/GM PRODUCTION & LIVE EXPERIENCES CPT-OV Office Visit 18:19:06 CDT
--- OUTSIDE RECORDS SUMMARY | 2020-01-18 13:50 | XMS REPORT | Clinical Summary ---
Author Author Admin, Mitch Leon Organization [facility] Address Unknown Phone Unavailable Allergies, Adverse Reactions, [...] of vessel, kiana or graft EDEMA 782.3 Resolved Mitch Urbina [...] Sebaceous cyst, infected 706.2 Resolved Mitch W Calritos DO Sebaceous cyst Cellulitis 682.9 Resolved Mitch [...] prophylactic vaccin ation and inoculation against influenza SEROMA ICD-998.13 Inactive Mitch Urbina DO REACTIVE HYPOGLYCEMIA ICD-251.2 Inactive iMtch Urbina DO LONG-TERM (CURRENT) USE OF ANTICOAGULANTS [...] Urbina DO Cough, chronic ICD-786.2 Inactive Mitch Christy Sebaceous cyst, infected ICD-706.2 Inactive Mitch Urbina DO Cellulitis ICD-682.9 Inactive Mitch Urbina DO 10/23 Influenza Vaccination for Prophylaxis ICD-V04.81 9 Inactive Bhumi Travis CELLULITIS, GROIN, LEFT ICD-682.2 Inactive Zoya Urbina DO Medication List Medication Instructions Start Date Stop Date Generic Name NDC Status Provider Patient Instruction KEFLEX 500 MG ORAL CAPSULE 1 capsule by mouth three times da rocky x10 days CEPHALEXIN 69583043426 Active Maria Rivas RN Active METOPROLOL TARTRATE TABS 50MG TAKE 1 TABLET TWICE A DAY ([facility] WORK) METOPROLOL TARTRATE 06806111259 Active Maria Leon N Active DOXAZOSIN MESYLATE 2 MG ORAL TABLET 1 po q day for pr ostate and blood pressure DOXAZOSIN MESYLATE 10649110945 Active Mitch Urbina DO Active LOSARTAN TABS 100MG TAKE 1 TABLET DAILY FOR BLOOD PRESSURE LOSARTAN POTASSIUM 44921129726 Active Maria Rivas RN Active FLUTICASONE PROPIONATE 50 MCG/ACT NASAL SUSPENSION 1 s pray each nostril twice daily for 1 week, then once daily FLUTICASONE VA OPIONATE 30831758745 Active Becky Sell OIL PAINTER Active PREDNISONE 20 MG ORAL TABLET 2 tabs daily for 3 days 1 tab d aily for 3 days PREDNISONE 95883577072 No Longer Active Becky Sell OIL PAINTER Active MINOXIDIL 2.5 MG ORAL TABLET 1 tablet twice daily for high b lood pressure MINOXIDIL 07210016949 Active Mitch Urbina DO Ac tive METFORMIN HCL ER 500 MG ORAL TABLET EXTENDED RELEASE 2 4 HOUR 2 tablets by mouth twice daily METFORMIN HCL 87988786803 Active Mitch W Carlitos DO Active GLIMEPIRIDE 4 MG ORAL TABLET 1 tablet by mouth twice daily f or diabetes GLIMEPIRIDE 44955930637 Active Mitch Urbina DO Active GLIMEPIRIDE 2 MG ORAL TABLET 1 po BID GLIMEPI RIDE 39284085618 No Longer Active Mitch Urbina DO Active AMLODIPINE BESYLATE 5 MG ORAL TABLET 1 tablet by mouth daily AMLODIPINE BESYLATE 44211200371 Active Mitch Urbina DO Active PROVIGIL 200 MG ORAL TABLET 1/2 tab po q day MODA FINIL 13829965084 Active Renee Oconnor LPN Active FAMOTIDINE 20 MG ORAL TABLET by mouth twice a day 2017 FAMOTIDINE 68020903018 No Longer Active Mitch Urbina DO Active COLCRYS 0.6 MG ORAL TABLET 1 tab qid prn gout C OLCHICINE 81731593124 No Longer Active Mitch Urbina DO Active KEFLEX 500 MG ORAL CAPSULE 1 po qid CEPHALEXI N 06371216409 No Longer Active Mitch Urbina DO Active AMLODIPINE BESYLATE 5 MG ORAL TABLET 1 tablet by mouth daily 201 01/20/04 AMLODIPINE BESYLATE 28345177137 No Longer Active Joe fulton APRN Active MITIGARE 0.6 MG ORAL CAPSULE 2 capsules at onset of go ut pain, then take one capsule at 1 hour if symptoms persist. COLCHICINE 59 867102568 Active Mitch Urbina DO Active COUMADIN 1 MG ORAL TABLET 2 tabs orally daily with the 5mg tab to equal 7mg daily WARFARIN SODIUM 37655844182 Active Renee Oconnor LPN Active INVOKANA 100 MG ORAL TABLET 1 tablet orally daily CANAGLIFLOZIN 88886244333 Active Mitch Urbina DO Active MECLIZINE HCL 25 MG ORAL TABLET 1 po tid 3 days, then 1/2 ta b tid 3 days MECLIZINE HCL 99381912380 No Longer Active Corey SEGURA Active ALLOPURINOL 300 MG ORAL TABLET Take 1 tablet by mouth daily 2012 ALLOPURINOL 30936156016 No Longer Active Corey SEGURA Active CLONIDINE HCL 0.1 MG ORAL TABLET 1 po bid 7 days, then 1/2 t ab po bid 7 days CLONIDINE HCL 84110810914 No Longer Active Corey SEGURA Active COUMADIN 5 MG ORAL TABLET 1 tab PO daily WARFAR IN SODIUM 95522312173 Active Renee Oconnor LPN Active COUMADIN 4 MG ORAL TABLET 1 tablet daily WARFAR IN SODIUM 53497925281 No Longer Active Corey SEGURA Active POLYTRIM 92151-5.1 UNIT/ML-% OPHTHALMIC SOLUTION 1 rui p in affected eye every 3 hours while awake x 7 days POLYMYXIN B-TRIMETHOP RIM 61124640922 No Longer Active Corey SEGURA Active LOSARTAN POTASSIUM-HCTZ 100-12.5 MG ORAL TABLET 1 by m outh daily for high blood pressure LOSARTAN POTASSIUM-HCTZ 94908696540 No Longer A ctive Mitch Urbina DO Active LISINOPRIL-HYDROCHLOROTHIAZIDE 20-12.5 MG ORAL TABLET 1 tab by m outh daily LISINOPRIL-HYDROCHLOROTHIAZIDE 69706547199 No Longer Active Mitch Urbina DO Active LISINOPRIL 20 MG ORAL TABLET 1 tab po at HS LIS INOPRIL 81647780259 No Longer Active Mitch Urbina DO Active COUMADIN 5 MG ORAL TABLET 1 by mouth every other day 2 WARFARIN SODIUM 53065704678 No Longer Active Mitch Urbina DO Active COUMADIN 6 MG ORAL TABLET 1 by mouth every other day 2 WARFARIN SODIUM 98418422833 No Longer Active Mitch Urbina DO Active SIMVASTATIN 40 MG ORAL TABLET 1 tab daily at bedtime SIMVASTATIN 91839056729 Active Maria Rivas RN Active SIMVASTATIN 20 MG ORAL TABLET 1 tab daily at bedtime 2 SIMVASTATIN 44470281542 No Longer Active Mitch Urbina DO Active LOVENOX 100 MG/ML SUBCUTANEOUS SOLUTION One injection twice a da y ENOXAPARIN SODIUM 51740082421 No Longer Active Carmine Yusuf MD Active JANUVIA 50 MG ORAL TABLET Take one by mouth daily SITAGLIPTIN PHOSPHATE 20470963587 Active Renee Oconnor LPN Active JANUVIA 100 MG ORAL TABLET 1/2 by mouth every day 2011 SITAGLIPTIN PHOSPHATE 41753606579 No Longer Active Bijal Segal RN Acti ve METFORMIN HCL 500 MG ORAL TABLET 2 by mouth twice daily METFORMIN HCL 11209545326 No Longer Active Renee Oconnor LPN Active COLCRYS 0.6 MG ORAL TABLET 1 po q 6 hours prn gout pain COLCHICINE 56151036758 No Longer Active Camila Reees Active LISINOPRIL 5 MG ORAL TABLET 1 by mouth every day 11/17 LISINOPRIL 88799233396 No Longer Active Nguyen Perez Active KLOR-CON 20 MEQ ORAL PACKET Take one by mouth daily 20 09/10/08 POTASSIUM CHLORIDE 75673438626 No Longer Active Nguyen Perez Active FUROSEMIDE 40 MG ORAL TABLET 1 by mouth daily F UROSEMIDE 92282500645 No Longer Active Nguyen Perez Active PROVIGIL 100 MG ORAL TABLET Take one by mouth daily 20 08/20/04 MODAFINIL 13610978863 No Longer Active Mitch Urbina DO Active BACTRIM DS 800-160 MG ORAL TABLET 1 tab by mouth twice daily 201 10/19/09 TRIMETHOPRIM-SULFAMETHOXAZOLE 59367200409 No Longer Active Elian Hays MD Active ADULT ASPIRIN LOW STRENGTH 81 MG ORAL TABLET DISINTEGR ATING 1 by mouth every daily ASPIRIN 46641442543 Active Mitch Urbina DO Ac tive BACTRIM DS 800-160 MG ORAL TABLET 1 tab by mouth twice daily 201 10/19/09 BACTRIM DS 800-160 MG ORAL TABLET 909993 TRIMETHOPRIM-SULFAMETHOXAZOLE Inactive PROVIGIL 100 MG ORAL TABLET Take one by mouth daily 20 08/20/04 PROVIGIL 100 MG ORAL TABLET 222737 MODAFINIL Inactive FUROSEMIDE 40 MG ORAL TABLET 1 by mouth daily FUROSEMIDE 40 MG ORAL TABLET 245721 FUROSEMIDE Inactive KLOR-CON 20 MEQ ORAL PACKET Take one by mouth daily 09/10/08 KLOR- CON 20 MEQ ORAL PACKET 7781136 POTASSIUM CHLORIDE Inactive LISINOPRIL 5 MG ORAL TABLET 1 by mouth every day 11/17 LISINOPRIL 5 MG ORAL TABLET 804828 LISINOPRIL Inactive COLCRYS 0.6 MG ORAL TABLET 1 po q 6 hours prn gout pain COLCRYS 0.6 MG ORAL TABLET 049054 COLCHICINE Inactive JANUVIA 100 MG ORAL TABLET 1/2 by mouth every day 2011 JANUVIA 100 MG ORAL TABLET SITAGLIPTIN PHOSPHATE Inactive SIMVASTATIN 20 MG ORAL TABLET 1 tab daily at bedtime 2 SIMVASTATIN 20 MG ORAL TABLET 110457 SIMVASTATIN Inactive COUMADIN 6 MG ORAL TABLET 1 by mouth every other day COUMADIN 6 MG ORAL TABLET 808155 WARFARIN SODIUM Inactive COUMADIN 5 MG ORAL TABLET 1 by mouth every other day COUMADIN 5 MG ORAL TABLET 256229 WARFARIN SODIUM Inactive LISINOPRIL 20 MG ORAL TABLET 1 tab po at HS LISINOPRIL 20 MG ORAL TABLET 204166 LISINOPRIL Inactive LISINOPRIL-HYDROCHLOROTHIAZIDE 20-12.5 MG ORAL TABLET 1 tab by m outh daily LISINOPRIL-HYDROCHLOROTHIAZIDE 20-12.5 MG ORAL TABLET 174746 LISINOPRIL-HYDROCHLOROTHIAZIDE Inactive POLYTRIM 10818-1.1 UNIT/ML-% OPHTHALMIC SOLUTION 1 rui p in affected eye every 3 hours while awake x 7 days POLYTRIM 1000 0-0.1 UNIT/ML-% OPHTHALMIC SOLUTION 213141 POLYMYXIN B-TRIMETHOPRIM Inactive COUMADIN 4 MG ORAL TABLET 1 tablet daily COUMADIN 4 MG ORAL TABLET 820265 WARFARIN SODIUM Inactive CLONIDINE HCL 0.1 MG ORAL TABLET 1 po bid 7 days, then 1/2 t ab po bid 7 days CLONIDINE HCL 0.1 MG ORAL TABLET 839978 CLONIDIN E HCL Inactive ALLOPURINOL 300 MG ORAL TABLET Take 1 tablet by mouth daily 2012 ALLOPURINOL 300 MG ORAL TABLET 944458 ALLOPURINOL I nactive MECLIZINE HCL 25 MG ORAL TABLET 1 po tid 3 days, then 1/2 ta b tid 3 days MECLIZINE HCL 25 MG ORAL TABLET 282801 MECLIZINE HCL Inactive AMLODIPINE BESYLATE 5 MG ORAL TABLET 1 tablet by mouth daily 201 01/20/04 AMLODIPINE BESYLATE 5 MG ORAL TABLET 160664 AMLODIPINE BESYLATE Inactive KEFLEX 500 MG ORAL CAPSULE 1 po qid K EFLEX 500 MG ORAL CAPSULE 352820 CEPHALEXIN Inactive COLCRYS 0.6 MG ORAL TABLET 1 tab qid prn gout COLCRYS 0.6 MG ORAL TABLET 497310 COLCHICINE Inactive FAMOTIDINE 20 MG ORAL TABLET by mouth twice a day 2017 FAMOTIDINE 20 MG ORAL TABLET 445436 FAMOTIDINE Inactive GLIMEPIRIDE 2 MG ORAL TABLET 1 po BID GLIMEPIRIDE 2 MG ORAL TABLET 334902 GLIMEPIRIDE Inactive LOVENOX 100 MG/ML SUBCUTANEOUS SOLUTION One injection twice a da y LOVENOX 100 MG/ML SUBCUTANEOUS SOLUTION 288421 ENOXAPAR IN SODIUM Inactive PREDNISONE 20 MG ORAL TABLET 2 tabs daily for 3 days 1 tab d aily for 3 days PREDNISONE 20 MG ORAL TABLET 829083 PREDNISONE Inactive Advance Directives Directive Description Start [...] mg/dL Encounters Code Encounter Date Provider Facility CPT-17497 21350-Zew Vst-Est Level IV 16:21:22 CDT Bru ce W [facility] CPT-68785 Level 3 Est. Patient 15:18:36 CDT Becky anderson APRN [facility] CPT-42052 04025-Rnd Vst-Est Level IV 10:06:35 CDT Bru ce W [facility] CPT-34354 51624-Vce Vst-Est Level IV 10:52:00 HAND II CUTTER Bru ce W [facility] CPT-45020 Level 3 Est. Patient 18:25:53 CDT Mitch Castellano [facility] CPT-73245 Level 3 Est. Patient 19:43:34 CDT Mitch W Nona luis [facility] CPT-50588 Level 4 Est. Patient 09:30:18 CDT Mitch luis [facility] CPT-68827 Level 3 Est. Patient 15:10:14 CDT Joe Gomez [facility]-95744 Level 3 Est. Patient 15:03:46 CDT Devonjustincarlitos Gomez [facility]-84660 Level 3 Est. Patient 14:21:06 CDT Mitch luis [facility] CPT-68178 Level 3 Est. Patient 14:52:06 CDT Joe Jason [facility]-00339 Level 3 Est. Patient 09:34:30 HAND II CUTTER Mitch luis [facility] CPT-48384 Level 3 Est. Patient 09:37:15 CDT Mitch luis [facility]-86044 Level 3 Est. Patient 17:01:00 HAND II CUTTER Mitch luis [facility] CPT-42792 Level 3 Est. Patient 13:53:19 HAND II CUTTER Mitch luis [facility] CPT-92967 Level 3 Est. Patient 19:19:37 HAND II CUTTER Mitch luis [facility] CPT-44119 Level 3 Est. Patient 13:25:53 HAND II CUTTER Tavo toure MD [facility] CPT-21041 Level 3 Est. Patient 18:17:[address] [facility] CPT-52453 Level 3 Est. Patient 15:22:57 CDT Mitch luis [facility] CPT-13482 Level 3 Est. Patient 18:21:50 CDT Mitch luis [facility] CPT-36185 Level 3 Est. Patient 18:20:38 CDT Mitch luis [facility] CPT-65996 Level 3 Est. Patient 15:37:[address] [facility] CPT-23427 Level 2 Est. Patient 15:54:44 CDT Carmine benton MD [facility] CPT-33311 Level 3 Est. Patient 21:46:01 HAND II CUTTER Mitch luis [facility] CPT-22203 Level 3 Est. Patient 22:15:[address] [facility] CPT-64214 Level 3 Est. Patient 10:48:[address] [facility] CPT-02183 Level 3 Est. Patient 23:20:57 CDT Tavo toure MD [facility] CPT-61473 Level 3 Est. Patient 16:26:[address] [facility] Procedures Code Procedure Name Date Entry Date Standard Desc ription CPT-84086 Venous Duplex Left Leg XRAY USE ONLY 10:43:10 CDT CPT-31342 Venipuncture Draw Fee 17:04:55 CDT CPT-43676 Venipuncture Draw Fee 17:20:50 CDT CPT-74216 Venipuncture Draw Fee 18:00:48 CDT CPT-03749 Venipuncture Draw Fee 14:56:20 CDT CPT-JTINJ Asp/Joint Injection 18:47:02 CDT CPT-58991 Venipuncture Draw Fee 09:26:17 CDT CPT-65407 PT/INR - LAB USE ONLY 13:32:49 HAND II CUTTER CPT-56848 Venipuncture Draw Fee 13:32:49 HAND II CUTTER CPT-78486 PT/INR - LAB USE ONLY 10:34:49 HAND II CUTTER CPT-37905 Venipuncture Draw Fee 10:34:48 HAND II CUTTER CPT-99642 PT/INR - LAB USE ONLY 09:22:03 HAND II CUTTER CPT-42336 Venipuncture Draw Fee 09:22:02 HAND II CUTTER CPT-16692 Hemoccult IFOBT - LAB USE ONLY 10:27:22 CDT CPT-55862 Venipuncture Draw Fee 08:27:08 CDT CPT-06453 Liver Profile - LAB USE ONLY 08:27:07 CDT 2 CPT-86767 Microalbumin - LAB USE ONLY 08:27:07 CDT 20 25/05/09 CPT-60745 PT/INR - LAB USE ONLY 08:27:07 CDT CPT-84701 HGBA1C - LAB USE ONLY 08:27:07 CDT CPT-62714 CBC - LAB USE ONLY 08:27:07 CDT CPT-67536 Venipuncture Draw Fee 11:09:14 CDT CPT-84128 Venipuncture Draw Fee 08:32:21 HAND II CUTTER CPT-95898 Venipuncture Draw Fee 09:38:56 HAND II CUTTER CPT-89959 No Charge Offi Visit 21:36:07 CDT 1 CPT-95001 Venipuncture Draw Fee 10:13:28 HAND II CUTTER CPT-84257 Venipuncture Draw Fee 08:31:11 CDT CPT-86580 Aspir/Inject Med Joint 18:17:28 CDT CPT-82622 Venipuncture Draw Fee 10:13:30 CDT CPT-11451 Venipuncture Draw Fee 08:31:43 HAND II CUTTER CPT-JTINJ Joint Injection 18:34:50 CDT CPT-56591 Knee 3V 12:25:09 CDT CPT-29002 Venipuncture Draw Fee 12:15:57 CDT CPT-060 Medical Surveillance Exam 21:31:43 CDT 2011 CPT-79381 Venipuncture Draw Fee 08:32:05 HAND II CUTTER CPT-OV Office Visit 18:19:06 CDT
--- OUTSIDE RECORDS SUMMARY | 2020-01-18 13:50 | XMS REPORT | Clinical Summary ---
Author Author Admin, Mitch Leon Organization [facility] RELEASEIF Address Unknown Phone Unavailable Allergies, Adverse Reactions, [...] three times da rocky x10 days CEPHALEXIN 87322028210 Active Maria Rivas RN Active METOPROLOL TARTRATE TABS 50MG TAKE 1 TABLET TWICE A DAY ([facility] WORK) METOPROLOL TARTRATE 12437612515 Active Maria Briones Active DOXAZOSIN MESYLATE 2 MG ORAL TABLET 1 po q day for pr ostate and blood pressure DOXAZOSIN MESYLATE 31637055038 Active Mitch Urbina DO Active LOSARTAN TABS 100MG TAKE 1 TABLET DAILY FOR BLOOD PRESSURE LOSARTAN POTASSIUM 01101638404 Active Maria Rivas RN Active FLUTICASONE PROPIONATE 50 MCG/ACT NASAL SUSPENSION 1 s pray each nostril twice daily for 1 week, then once daily FLUTICASONE ID OPIONATE 43853175290 Active Becky Sell CLOUD ADMINISTRATOR Active PREDNISONE 20 MG ORAL TABLET 2 tabs daily for 3 days 1 tab d aily for 3 days PREDNISONE 92251789073 No Longer Active Becky Sell CLOUD ADMINISTRATOR Active MINOXIDIL 2.5 MG ORAL TABLET 1 tablet twice daily for high b lood pressure MINOXIDIL 63068504760 Active Mitch Urbina DO Ac tive METFORMIN HCL ER 500 MG ORAL TABLET EXTENDED RELEASE 2 4 HOUR 2 tablets by mouth twice daily METFORMIN HCL 52214100851 Active Mitch W Carlitos DO Active GLIMEPIRIDE 4 MG ORAL TABLET 1 tablet by mouth twice daily f or diabetes GLIMEPIRIDE 62419452959 Active Mitch Urbina DO Active GLIMEPIRIDE 2 MG ORAL TABLET 1 po BID GLIMEPI RIDE 33004990689 No Longer Active Mitch Urbina DO Active AMLODIPINE BESYLATE 5 MG ORAL TABLET 1 tablet by mouth daily AMLODIPINE BESYLATE 63877520256 Active Mitch Urbina DO Active PROVIGIL 200 MG ORAL TABLET 1/2 tab po q day MODA FINIL 64700303134 Active Renee Oconnor LPN Active FAMOTIDINE 20 MG ORAL TABLET by mouth twice a day 2017 FAMOTIDINE 22451749513 No Longer Active Mitch Urbina DO Active COLCRYS 0.6 MG ORAL TABLET 1 tab qid prn gout C OLCHICINE 95543383628 No Longer Active Mitch Urbina DO Active KEFLEX 500 MG ORAL CAPSULE 1 po qid CEPHALEXI N 46977500295 No Longer Active Mitch Urbina DO Active AMLODIPINE BESYLATE 5 MG ORAL TABLET 1 tablet by mouth daily 201 01/20/04 AMLODIPINE BESYLATE 45811383082 No Longer Active Joe fulton APRN Active MITIGARE 0.6 MG ORAL CAPSULE 2 capsules at onset of go ut pain, then take one capsule at 1 hour if symptoms persist. COLCHICINE 59 186040426 Active Mitch Urbina DO Active COUMADIN 1 MG ORAL TABLET 2 tabs orally daily with the 5mg tab to equal 7mg daily WARFARIN SODIUM 94460760729 Active Renee Oconnor LPN Active INVOKANA 100 MG ORAL TABLET 1 tablet orally daily CANAGLIFLOZIN 77587479837 Active Mitch Urbina DO Active MECLIZINE HCL 25 MG ORAL TABLET 1 po tid 3 days, then 1/2 ta b tid 3 days MECLIZINE HCL 95793517010 No Longer Active Corey SEGURA Active ALLOPURINOL 300 MG ORAL TABLET Take 1 tablet by mouth daily 2012 ALLOPURINOL 74091176376 No Longer Active Corey SEGURA Active CLONIDINE HCL 0.1 MG ORAL TABLET 1 po bid 7 days, then 1/2 t ab po bid 7 days CLONIDINE HCL 28796977464 No Longer Active Corey SEGURA Active COUMADIN 5 MG ORAL TABLET 1 tab PO daily WARFAR IN SODIUM 42054657253 Active Renee Oconnro LPN Active COUMADIN 4 MG ORAL TABLET 1 tablet daily WARFAR IN SODIUM 64195164309 No Longer Active Corey SEGURA Active POLYTRIM 44639-3.1 UNIT/ML-% OPHTHALMIC SOLUTION 1 rui p in affected eye every 3 hours while awake x 7 days POLYMYXIN B-TRIMETHOP RIM 23392781620 No Longer Active Corey SEGURA Active LOSARTAN POTASSIUM-HCTZ 100-12.5 MG ORAL TABLET 1 by m outh daily for high blood pressure LOSARTAN POTASSIUM-HCTZ 66326817717 No Longer A ctive Mitch Urbina DO Active LISINOPRIL-HYDROCHLOROTHIAZIDE 20-12.5 MG ORAL TABLET 1 tab by m outh daily LISINOPRIL-HYDROCHLOROTHIAZIDE 04641170811 No Longer Active Mitch Urbina DO Active LISINOPRIL 20 MG ORAL TABLET 1 tab po at HS LIS INOPRIL 36079053952 No Longer Active Mitch Urbina DO Active COUMADIN 5 MG ORAL TABLET 1 by mouth every other day 2 WARFARIN SODIUM 80106690528 No Longer Active Mitch Urbina DO Active COUMADIN 6 MG ORAL TABLET 1 by mouth every other day 2 WARFARIN SODIUM 33279854682 No Longer Active Mitch Urbina DO Active SIMVASTATIN 40 MG ORAL TABLET 1 tab daily at bedtime SIMVASTATIN 18573882774 Active Maria Rivas RN Active SIMVASTATIN 20 MG ORAL TABLET 1 tab daily at bedtime 2 SIMVASTATIN 62689770695 No Longer Active Mitch Urbina DO Active LOVENOX 100 MG/ML SUBCUTANEOUS SOLUTION One injection twice a da y ENOXAPARIN SODIUM 33322345704 No Longer Active Carmine Yusuf MD Active JANUVIA 50 MG ORAL TABLET Take one by mouth daily SITAGLIPTIN PHOSPHATE 25282211207 Active Renee Oconnor LPN Active JANUVIA 100 MG ORAL TABLET 1/2 by mouth every day 2011 SITAGLIPTIN PHOSPHATE 80917056816 No Longer Active Bijal Segal RN Acti ve METFORMIN HCL 500 MG ORAL TABLET 2 by mouth twice daily METFORMIN HCL 34872821157 No Longer Active Renee Oconnor LPN Active COLCRYS 0.6 MG ORAL TABLET 1 po q 6 hours prn gout pain COLCHICINE 73811686133 No Longer Active Camila Reese Active LISINOPRIL 5 MG ORAL TABLET 1 by mouth every day 11/17 LISINOPRIL 04847186628 No Longer Active Nguyen Perez Active KLOR-CON 20 MEQ ORAL PACKET Take one by mouth daily 20 09/10/08 POTASSIUM CHLORIDE 90649953995 No Longer Active Nguyen Perez Active FUROSEMIDE 40 MG ORAL TABLET 1 by mouth daily F UROSEMIDE 28031453656 No Longer Active Nguyen Perez Active PROVIGIL 100 MG ORAL TABLET Take one by mouth daily 20 08/20/04 MODAFINIL 62895648097 No Longer Active Mitch Urbina DO Active BACTRIM DS 800-160 MG ORAL TABLET 1 tab by mouth twice daily 201 10/19/09 TRIMETHOPRIM-SULFAMETHOXAZOLE 19478177364 No Longer Active Elian Hays MD Active ADULT ASPIRIN LOW STRENGTH 81 MG ORAL TABLET DISINTEGR ATING 1 by mouth every daily ASPIRIN 20311589909 Active Mitch Urbina DO Ac tive BACTRIM DS 800-160 MG ORAL TABLET 1 tab by mouth twice daily 201 10/19/09 BACTRIM DS 800-160 MG ORAL TABLET 163521 TRIMETHOPRIM-SULFAMETHOXAZOLE Inactive PROVIGIL 100 MG ORAL TABLET Take one by mouth daily 20 08/20/04 PROVIGIL 100 MG ORAL TABLET 923203 MODAFINIL Inactive FUROSEMIDE 40 MG ORAL TABLET 1 by mouth daily FUROSEMIDE 40 MG ORAL TABLET 024435 FUROSEMIDE Inactive KLOR-CON 20 MEQ ORAL PACKET Take one by mouth daily 09/10/08 KLOR- CON 20 MEQ ORAL PACKET 4124228 POTASSIUM CHLORIDE Inactive LISINOPRIL 5 MG ORAL TABLET 1 by mouth every day 11/17 LISINOPRIL 5 MG ORAL TABLET 715964 LISINOPRIL Inactive COLCRYS 0.6 MG ORAL TABLET 1 po q 6 hours prn gout pain COLCRYS 0.6 MG ORAL TABLET 976658 COLCHICINE Inactive JANUVIA 100 MG ORAL TABLET 1/2 by mouth every day 2011 JANUVIA 100 MG ORAL TABLET SITAGLIPTIN PHOSPHATE Inactive SIMVASTATIN 20 MG ORAL TABLET 1 tab daily at bedtime 2 SIMVASTATIN 20 MG ORAL TABLET 702887 SIMVASTATIN Inactive COUMADIN 6 MG ORAL TABLET 1 by mouth every other day COUMADIN 6 MG ORAL TABLET 197121 WARFARIN SODIUM Inactive COUMADIN 5 MG ORAL TABLET 1 by mouth every other day COUMADIN 5 MG ORAL TABLET 997725 WARFARIN SODIUM Inactive LISINOPRIL 20 MG ORAL TABLET 1 tab po at HS LISINOPRIL 20 MG ORAL TABLET 870146 LISINOPRIL Inactive LISINOPRIL-HYDROCHLOROTHIAZIDE 20-12.5 MG ORAL TABLET 1 tab by m outh daily LISINOPRIL-HYDROCHLOROTHIAZIDE 20-12.5 MG ORAL TABLET 579202 LISINOPRIL-HYDROCHLOROTHIAZIDE Inactive POLYTRIM 59499-2.1 UNIT/ML-% OPHTHALMIC SOLUTION 1 rui p in affected eye every 3 hours while awake x 7 days POLYTRIM 1000 0-0.1 UNIT/ML-% OPHTHALMIC SOLUTION 384109 POLYMYXIN B-TRIMETHOPRIM Inactive COUMADIN 4 MG ORAL TABLET 1 tablet daily COUMADIN 4 MG ORAL TABLET 221821 WARFARIN SODIUM Inactive CLONIDINE HCL 0.1 MG ORAL TABLET 1 po bid 7 days, then 1/2 t ab po bid 7 days CLONIDINE HCL 0.1 MG ORAL TABLET 087087 CLONIDIN E HCL Inactive ALLOPURINOL 300 MG ORAL TABLET Take 1 tablet by mouth daily 2012 ALLOPURINOL 300 MG ORAL TABLET 821209 ALLOPURINOL I nactive MECLIZINE HCL 25 MG ORAL TABLET 1 po tid 3 days, then 1/2 ta b tid 3 days MECLIZINE HCL 25 MG ORAL TABLET 407883 MECLIZINE HCL Inactive AMLODIPINE BESYLATE 5 MG ORAL TABLET 1 tablet by mouth daily 201 01/20/04 AMLODIPINE BESYLATE 5 MG ORAL TABLET 730985 AMLODIPINE BESYLATE Inactive KEFLEX 500 MG ORAL CAPSULE 1 po qid K EFLEX 500 MG ORAL CAPSULE 995325 CEPHALEXIN Inactive COLCRYS 0.6 MG ORAL TABLET 1 tab qid prn gout COLCRYS 0.6 MG ORAL TABLET 475636 COLCHICINE Inactive FAMOTIDINE 20 MG ORAL TABLET by mouth twice a day 2017 FAMOTIDINE 20 MG ORAL TABLET 680312 FAMOTIDINE Inactive GLIMEPIRIDE 2 MG ORAL TABLET 1 po BID GLIMEPIRIDE 2 MG ORAL TABLET 563430 GLIMEPIRIDE Inactive LOVENOX 100 MG/ML SUBCUTANEOUS SOLUTION One injection twice a da y LOVENOX 100 MG/ML SUBCUTANEOUS SOLUTION 238889 ENOXAPAR IN SODIUM Inactive PREDNISONE 20 MG ORAL TABLET 2 tabs daily for 3 days 1 tab d aily for 3 days PREDNISONE 20 MG ORAL TABLET 334657 PREDNISONE Inactive Advance Directives Directive Description Start [...] mg/dL Encounters Code Encounter Date Provider Facility CPT-97426 [id number] Vst-Est Level IV 16:21:22 CDT Bru ce W [facility] CPT-30217 Level 3 Est. 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 Patient 18:25:53 CDT Mitch Castellano [facility] CPT-88974 Level 3 Est. Patient 19:43:34 CDT Mitch W Nona luis [facility] CPT-53780 Level 4 Est. Patient 09:30:18 CDT Mitch luis [facility] CPT-75614 Level 3 Est. Patient 15:10:14 CDT [facility] Level 3 Est. Patient 15:03:46 CDT [facility] Level 3 Est. Patient 14:21:06 CDT Mitch luis [facility] CPT-52468 Level 3 Est. Patient 14:52:06 CDT Joe [facility] Level 3 Est. 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 Patient 09:37:15 CDT Mitch luis [facility]-26622 Level 3 Est. Patient 17:01:00 ADULT HIGH SCHOOL INSTRUCTOR Mitch [facility] CPT-52368 Level 3 Est. Patient 13:53:19 ADULT HIGH SCHOOL INSTRUCTOR Mitch [facility] CPT-62303 Level 3 Est. Patient 19:19:37 ADULT HIGH SCHOOL INSTRUCTOR Mitch [facility] CPT-86751 Level 3 Est. Patient 13:25:53 ADULT HIGH SCHOOL INSTRUCTOR Tavo toure MD [facility] CPT-20999 Level 3 Est. Patient 18:17:28 CDT Mitch l[facility] CPT-62291 Level 3 Est. Patient 15:22:57 CDT Mitch luis [facility] CPT-25663 Level 3 Est. Patient 18:21:50 CDT Mitch luis [facility] CPT-48557 Level 3 Est. Patient 18:20:38 CDT Mitch luis [facility] CPT-56020 Level 3 Est. Patient 15:37:55 CDT Mitch [facility] CPT-20726 Level 2 Est. Patient 15:54:44 CDT Carmine benton MD [facility] CPT-05490 Level 3 Est. Patient 21:46:01 ADULT HIGH SCHOOL INSTRUCTOR Mitch [facility] CPT-62005 Level 3 Est. Patient 22:15:50 CDT Mitch [facility] CPT-55362 Level 3 Est. Patient 10:48:15 CDT Mitch [facility] CPT-43798 Level 3 Est. Patient 23:20:57 CDT Tavo toure MD [facility] CPT-52979 Level 3 Est. Patient 16:26:13 CDT [facility] Procedures Code Procedure Name Date Entry Date Standard Desc ription CPT-19378 Venous Duplex Left Leg XRAY USE ONLY 10:43:10 CDT CPT-02503 Venipuncture Draw Fee 17:04:55 CDT CPT-55437 Venipuncture Draw Fee 17:20:50 CDT CPT-19095 Venipuncture Draw Fee 18:00:48 CDT CPT-24095 Venipuncture Draw Fee 14:56:20 CDT CPT-JTINJ Asp/Joint Injection 18:47:02 CDT CPT-24674 Venipuncture Draw Fee 09:26:17 CDT CPT-22972 PT/INR - LAB USE ONLY 13:32:49 ADULT HIGH SCHOOL INSTRUCTOR CPT-90253 Venipuncture Draw Fee 13:32:49 ADULT HIGH SCHOOL INSTRUCTOR CPT-88359 PT/INR - LAB USE ONLY 10:34:49 ADULT HIGH SCHOOL INSTRUCTOR CPT-43455 Venipuncture Draw Fee 10:34:48 ADULT HIGH SCHOOL INSTRUCTOR CPT-34895 PT/INR - LAB USE ONLY 09:22:03 ADULT HIGH SCHOOL INSTRUCTOR CPT-41497 Venipuncture Draw Fee 09:22:02 ADULT HIGH SCHOOL INSTRUCTOR CPT-98183 Hemoccult IFOBT - LAB USE ONLY 10:27:22 CDT CPT-47160 Venipuncture Draw Fee 08:27:08 CDT CPT-04415 Liver Profile - LAB USE ONLY 08:27:07 CDT 2 CPT-25554 Microalbumin - LAB USE ONLY 08:27:07 CDT 20 25/05/09 CPT-64975 PT/INR - LAB USE ONLY 08:27:07 CDT CPT-82682 HGBA1C - LAB USE ONLY 08:27:07 CDT CPT-34819 CBC - LAB USE ONLY 08:27:07 CDT CPT-94454 Venipuncture Draw Fee 11:09:14 CDT CPT-79998 Venipuncture Draw Fee 08:32:21 ADULT HIGH SCHOOL INSTRUCTOR CPT-75933 Venipuncture Draw Fee 09:38:56 ADULT HIGH SCHOOL INSTRUCTOR CPT-10977 No Charge Offi Visit 21:36:07 CDT 1 CPT-46490 Venipuncture Draw Fee 10:13:28 ADULT HIGH SCHOOL INSTRUCTOR CPT-59870 Venipuncture Draw Fee 08:31:11 CDT CPT-65497 Aspir/Inject Med Joint 18:17:28 CDT CPT-52937 Venipuncture Draw Fee 10:13:30 CDT CPT-64530 Venipuncture Draw Fee 08:31:43 ADULT HIGH SCHOOL INSTRUCTOR CPT-JTINJ Joint Injection 18:34:50 CDT CPT-67365 Knee 3V 12:25:09 CDT CPT-67882 Venipuncture Draw Fee 12:15:57 CDT CPT-060 Medical Surveillance Exam 21:31:43 CDT 2011 CPT-80296 Venipuncture Draw Fee 08:32:05 ADULT HIGH SCHOOL INSTRUCTOR CPT-OV Office Visit 18:19:06 CDT
--- OUTSIDE RECORDS SUMMARY | 2020-01-18 13:51 | XMS REPORT | Clinical Summary ---
Author Author Admin, Mitch Leon Organization [facility] Address Unknown Phone Unavailable Allergies, Adverse Reactions, [...] three times da rocky x10 days CEPHALEXIN 37756077588 Active Maria Rivas RN Active METOPROLOL TARTRATE TABS 50MG TAKE 1 TABLET TWICE A DAY ([facility]) METOPROLOL TARTRATE 58611747361 Active Maria Briones Active DOXAZOSIN MESYLATE 2 MG ORAL TABLET 1 po q day for pr ostate and blood pressure DOXAZOSIN MESYLATE 46815276374 Active Mitch Urbina DO Active LOSARTAN TABS 100MG TAKE 1 TABLET DAILY FOR BLOOD PRESSURE LOSARTAN POTASSIUM 40310968364 Active Maria Rivas RN Active FLUTICASONE PROPIONATE 50 MCG/ACT NASAL SUSPENSION 1 s pray each nostril twice daily for 1 week, then once daily FLUTICASONE CO OPIONATE 51975737474 Active Becky Sell USER 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 SUPERVISOR Active PREDNISONE 20 MG ORAL TABLET 2 tabs daily for 3 days 1 tab d aily for 3 days PREDNISONE 16775888190 No Longer Active Becky Sell USER 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 SUPERVISOR Active MINOXIDIL 2.5 MG ORAL TABLET 1 tablet twice daily for high b lood pressure MINOXIDIL 24079624915 Active Mitch Urbina DO Ac tive METFORMIN HCL ER 500 MG ORAL TABLET EXTENDED RELEASE 2 4 HOUR 2 tablets by mouth twice daily METFORMIN HCL 59145512008 Active Mitch W Carlitos DO Active GLIMEPIRIDE 4 MG ORAL TABLET 1 tablet by mouth twice daily f or diabetes GLIMEPIRIDE 17719926043 Active Mitch Urbina DO Active GLIMEPIRIDE 2 MG ORAL TABLET 1 po BID GLIMEPI RIDE 61807860881 No Longer Active Mitch Urbina DO Active AMLODIPINE BESYLATE 5 MG ORAL TABLET 1 tablet by mouth daily AMLODIPINE BESYLATE 75422322368 Active Mitch Urbina DO Active PROVIGIL 200 MG ORAL TABLET 1/2 tab po q day MODA FINIL 49370134515 Active Renee Oconnor LPN Active FAMOTIDINE 20 MG ORAL TABLET by mouth twice a day 2017 FAMOTIDINE 62383243414 No Longer Active Mitch Urbina DO Active COLCRYS 0.6 MG ORAL TABLET 1 tab qid prn gout C OLCHICINE 80497339262 No Longer Active Mitch Urbina DO Active KEFLEX 500 MG ORAL CAPSULE 1 po qid CEPHALEXI N 75425233749 No Longer Active Mitch Urbina DO Active AMLODIPINE BESYLATE 5 MG ORAL TABLET 1 tablet by mouth daily 201 01/20/04 AMLODIPINE BESYLATE 54687208504 No Longer Active Joe fulton APRN Active MITIGARE 0.6 MG ORAL CAPSULE 2 capsules at onset of go ut pain, then take one capsule at 1 hour if symptoms persist. COLCHICINE 59 863904161 Active Mitch Urbina DO Active COUMADIN 1 MG ORAL TABLET 2 tabs orally daily with the 5mg tab to equal 7mg daily WARFARIN SODIUM 52807952151 Active Renee Oconnor LPN Active INVOKANA 100 MG ORAL TABLET 1 tablet orally daily CANAGLIFLOZIN 81828902881 Active Mitch Urbina DO Active MECLIZINE HCL 25 MG ORAL TABLET 1 po tid 3 days, then 1/2 ta b tid 3 days MECLIZINE HCL 68220223764 No Longer Active Corey SEGURA Active ALLOPURINOL 300 MG ORAL TABLET Take 1 tablet by mouth daily 2012 ALLOPURINOL 53861826163 No Longer Active Corey SEGURA Active CLONIDINE HCL 0.1 MG ORAL TABLET 1 po bid 7 days, then 1/2 t ab po bid 7 days CLONIDINE HCL 06735915340 No Longer Active Corey SEGURA Active COUMADIN 5 MG ORAL TABLET 1 tab PO daily WARFAR IN SODIUM 08483005004 Active Renee Oconnor LPN Active COUMADIN 4 MG ORAL TABLET 1 tablet daily WARFAR IN SODIUM 60896067527 No Longer Active Corey SEGURA Active POLYTRIM 81786-3.1 UNIT/ML-% OPHTHALMIC SOLUTION 1 rui p in affected eye every 3 hours while awake x 7 days POLYMYXIN B-TRIMETHOP RIM 61831422854 No Longer Active Corey SEGURA Active LOSARTAN POTASSIUM-HCTZ 100-12.5 MG ORAL TABLET 1 by m outh daily for high blood pressure LOSARTAN POTASSIUM-HCTZ 87630226891 No Longer A ctive Mitch Urbina DO Active LISINOPRIL-HYDROCHLOROTHIAZIDE 20-12.5 MG ORAL TABLET 1 tab by m outh daily LISINOPRIL-HYDROCHLOROTHIAZIDE 19440016667 No Longer Active Mitch Urbina DO Active LISINOPRIL 20 MG ORAL TABLET 1 tab po at HS LIS INOPRIL 71021873512 No Longer Active Mitch Urbina DO Active COUMADIN 5 MG ORAL TABLET 1 by mouth every other day 2 WARFARIN SODIUM 52184126356 No Longer Active Mitch Urbina DO Active COUMADIN 6 MG ORAL TABLET 1 by mouth every other day 2 WARFARIN SODIUM 42525237412 No Longer Active Mitch Urbina DO Active SIMVASTATIN 40 MG ORAL TABLET 1 tab daily at bedtime SIMVASTATIN 67242678618 Active Maria Rivas RN Active SIMVASTATIN 20 MG ORAL TABLET 1 tab daily at bedtime 2 SIMVASTATIN 11651605042 No Longer Active Mitch Urbina DO Active LOVENOX 100 MG/ML SUBCUTANEOUS SOLUTION One injection twice a da y ENOXAPARIN SODIUM 48976833640 No Longer Active Carmine Yusuf MD Active JANUVIA 50 MG ORAL TABLET Take one by mouth daily SITAGLIPTIN PHOSPHATE 42704034849 Active Renee Oconnor LPN Active JANUVIA 100 MG ORAL TABLET 1/2 by mouth every day 2011 SITAGLIPTIN PHOSPHATE 12256585196 No Longer Active Bijal Segal RN Acti ve METFORMIN HCL 500 MG ORAL TABLET 2 by mouth twice daily METFORMIN HCL 32959465932 No Longer Active Renee Oconnor LPN Active COLCRYS 0.6 MG ORAL TABLET 1 po q 6 hours prn gout pain COLCHICINE 31751103628 No Longer Active Camila Reese Active LISINOPRIL 5 MG ORAL TABLET 1 by mouth every day 11/17 LISINOPRIL 12433152394 No Longer Active Nguyen Perez Active KLOR-CON 20 MEQ ORAL PACKET Take one by mouth daily 20 09/10/08 POTASSIUM CHLORIDE 56633633957 No Longer Active Nguyen Perez Active FUROSEMIDE 40 MG ORAL TABLET 1 by mouth daily F UROSEMIDE 53507759999 No Longer Active Nguyen Perez Active PROVIGIL 100 MG ORAL TABLET Take one by mouth daily 20 08/20/04 MODAFINIL 90958622694 No Longer Active Micth Urbina DO Active BACTRIM DS 800-160 MG ORAL TABLET 1 tab by mouth twice daily 201 10/19/09 TRIMETHOPRIM-SULFAMETHOXAZOLE 57679271595 No Longer Active Elian Hays MD Active ADULT ASPIRIN LOW STRENGTH 81 MG ORAL TABLET DISINTEGR ATING 1 by mouth every daily ASPIRIN 46269420067 Active Mitch Urbina DO Ac tive BACTRIM DS 800-160 MG ORAL TABLET 1 tab by mouth twice daily 201 10/19/09 BACTRIM DS 800-160 MG ORAL TABLET 019022 TRIMETHOPRIM-SULFAMETHOXAZOLE Inactive PROVIGIL 100 MG ORAL TABLET Take one by mouth daily 20 08/20/04 PROVIGIL 100 MG ORAL TABLET 454538 MODAFINIL Inactive FUROSEMIDE 40 MG ORAL TABLET 1 by mouth daily FUROSEMIDE 40 MG ORAL TABLET 314025 FUROSEMIDE Inactive KLOR-CON 20 MEQ ORAL PACKET Take one by mouth daily 09/10/08 KLOR- CON 20 MEQ ORAL PACKET 6958869 POTASSIUM CHLORIDE Inactive LISINOPRIL 5 MG ORAL TABLET 1 by mouth every day 11/17 LISINOPRIL 5 MG ORAL TABLET 833864 LISINOPRIL Inactive COLCRYS 0.6 MG ORAL TABLET 1 po q 6 hours prn gout pain COLCRYS 0.6 MG ORAL TABLET 815926 COLCHICINE Inactive JANUVIA 100 MG ORAL TABLET 1/2 by mouth every day 2011 JANUVIA 100 MG ORAL TABLET SITAGLIPTIN PHOSPHATE Inactive SIMVASTATIN 20 MG ORAL TABLET 1 tab daily at bedtime 2 SIMVASTATIN 20 MG ORAL TABLET 579632 SIMVASTATIN Inactive COUMADIN 6 MG ORAL TABLET 1 by mouth every other day COUMADIN 6 MG ORAL TABLET 502704 WARFARIN SODIUM Inactive COUMADIN 5 MG ORAL TABLET 1 by mouth every other day COUMADIN 5 MG ORAL TABLET 545544 WARFARIN SODIUM Inactive LISINOPRIL 20 MG ORAL TABLET 1 tab po at HS LISINOPRIL 20 MG ORAL TABLET 427260 LISINOPRIL Inactive LISINOPRIL-HYDROCHLOROTHIAZIDE 20-12.5 MG ORAL TABLET 1 tab by m outh daily LISINOPRIL-HYDROCHLOROTHIAZIDE 20-12.5 MG ORAL TABLET 373026 LISINOPRIL-HYDROCHLOROTHIAZIDE Inactive POLYTRIM 48657-9.1 UNIT/ML-% OPHTHALMIC SOLUTION 1 rui p in affected eye every 3 hours while awake x 7 days POLYTRIM 1000 0-0.1 UNIT/ML-% OPHTHALMIC SOLUTION 167588 POLYMYXIN B-TRIMETHOPRIM Inactive COUMADIN 4 MG ORAL TABLET 1 tablet daily COUMADIN 4 MG ORAL TABLET 881586 WARFARIN SODIUM Inactive CLONIDINE HCL 0.1 MG ORAL TABLET 1 po bid 7 days, then 1/2 t ab po bid 7 days CLONIDINE HCL 0.1 MG ORAL TABLET 310387 CLONIDIN E HCL Inactive ALLOPURINOL 300 MG ORAL TABLET Take 1 tablet by mouth daily 2012 ALLOPURINOL 300 MG ORAL TABLET 280057 ALLOPURINOL I nactive MECLIZINE HCL 25 MG ORAL TABLET 1 po tid 3 days, then 1/2 ta b tid 3 days MECLIZINE HCL 25 MG ORAL TABLET 728424 MECLIZINE HCL Inactive AMLODIPINE BESYLATE 5 MG ORAL TABLET 1 tablet by mouth daily 201 01/20/04 AMLODIPINE BESYLATE 5 MG ORAL TABLET 990516 AMLODIPINE BESYLATE Inactive KEFLEX 500 MG ORAL CAPSULE 1 po qid K EFLEX 500 MG ORAL CAPSULE 507202 CEPHALEXIN Inactive COLCRYS 0.6 MG ORAL TABLET 1 tab qid prn gout COLCRYS 0.6 MG ORAL TABLET 579519 COLCHICINE Inactive FAMOTIDINE 20 MG ORAL TABLET by mouth twice a day 2017 FAMOTIDINE 20 MG ORAL TABLET 630601 FAMOTIDINE Inactive GLIMEPIRIDE 2 MG ORAL TABLET 1 po BID GLIMEPIRIDE 2 MG ORAL TABLET 579326 GLIMEPIRIDE Inactive LOVENOX 100 MG/ML SUBCUTANEOUS SOLUTION One injection twice a da y LOVENOX 100 MG/ML SUBCUTANEOUS SOLUTION 744561 ENOXAPAR IN SODIUM Inactive PREDNISONE 20 MG ORAL TABLET 2 tabs daily for 3 days 1 tab d aily for 3 days PREDNISONE 20 MG ORAL TABLET 844918 PREDNISONE Inactive Advance Directives Directive Description Start [...] 11 .6-14.8 platelet count 256 10^3/MM^3 10*3/mm3 495-564 3837/03/29 mean corpuscular volume, RBC 85 fL 80-97 [...] mg/dL Encounters Code Encounter Date Provider Facility CPT-22839 [id number] Vst-Est Level IV 16:21:22 CDT Bru ce W [facility] CPT-04757 Level 3 Est. Patient 15:18:36 CDT Becky anderson APRN [facility] CPT-02492 [id number] Vst-Est Level IV 10:06:35 CDT Bru ce W [facility] CPT-67980 01747-Cki Vst-Est Level IV 10:52:00 [employer] Bru ce W [facility] CPT-51027 Level 3 Est. Patient 18:25:53 CDT Mitch Castellano [facility] CPT-05141 Level 3 Est. Patient 19:43:34 CDT Mitch W Nona luis [facility] CPT-70539 Level 4 Est. Patient 09:30:18 CDT Mitch luis [facility] CPT-75935 Level 3 Est. Patient 15:10:14 CDT Joe Gomez [facility]-17719 Level 3 Est. Patient 15:03:46 CDT Devonjustincarlitos Gomez [facility]-18093 Level 3 Est. Patient 14:21:06 CDT Mitch ulis [facility] CPT-60318 Level 3 Est. Patient 14:52:06 CDT Joe Jason [facility]-27321 Level 3 Est. Patient 09:34:30 [employer] Mitch luis [facility] CPT-38065 Level 3 Est. Patient 09:37:15 CDT Mitch luis [facility]-88002 Level 3 Est. Patient 17:01:00 [employer] Mitch luis [facility] CPT-16408 Level 3 Est. Patient 13:53:19 [employer] Mitch luis [facility] CPT-04892 Level 3 Est. Patient 19:19:37 [employer] Mitch luis [facility] CPT-18273 Level 3 Est. Patient 13:25:53 [employer] Tavo toure MD [facility] CPT-69213 Level 3 Est. Patient 18:17:28 CDT Mitch luis [facility] CPT-59777 Level 3 Est. Patient 15:22:57 CDT Mitch luis [facility] CPT-81332 Level 3 Est. Patient 18:21:50 CDT Mitch luis [facility] CPT-37871 Level 3 Est. Patient 18:20:38 CDT Micth luis [facility] CPT-96252 Level 3 Est. Patient 15:37:55 CDT Mitch luis [facility] CPT-31875 Level 2 Est. Patient 15:54:44 CDT Carmine benton MD [facility] CPT-80743 Level 3 Est. Patient 21:46:01 [employer] Mitch luis [facility] CPT-62922 Level 3 Est. Patient 22:15:50 CDT Mitch luis [facility] CPT-50219 Level 3 Est. Patient 10:48:15 CDT Mitch luis [facility] CPT-04511 Level 3 Est. Patient 23:20:57 CDT Tavo toure MD [facility] CPT-94018 Level 3 Est. Patient 16:26:13 CDT Mitch luis [facility] Procedures Code Procedure Name Date Entry Date Standard Desc ription CPT-06489 Venous Duplex Left Leg XRAY USE ONLY 10:43:10 CDT CPT-87498 Venipuncture Draw Fee 17:04:55 CDT CPT-30398 Venipuncture Draw Fee 17:20:50 CDT CPT-96200 Venipuncture Draw Fee 18:00:48 CDT CPT-53713 Venipuncture Draw Fee 14:56:20 CDT CPT-JTINJ Asp/Joint Injection 18:47:02 CDT CPT-50179 Venipuncture Draw Fee 09:26:17 CDT CPT-58407 PT/INR - LAB USE ONLY 13:32:49 [employer] CPT-41622 Venipuncture Draw Fee 13:32:49 [employer] CPT-04954 PT/INR - LAB USE ONLY 10:34:49 [employer] CPT-72543 Venipuncture Draw Fee 10:34:48 [employer] CPT-47243 PT/INR - LAB USE ONLY 09:22:03 [employer] CPT-18106 Venipuncture Draw Fee 09:22:02 [employer] CPT-73445 Hemoccult IFOBT - LAB USE ONLY 10:27:22 CDT CPT-62161 Venipuncture Draw Fee 08:27:08 CDT CPT-88555 Liver Profile - LAB USE ONLY 08:27:07 CDT 2 CPT-71624 Microalbumin - LAB USE ONLY 08:27:07 CDT 20 25/05/09 CPT-21660 PT/INR - LAB USE ONLY 08:27:07 CDT CPT-83238 HGBA1C - LAB USE ONLY 08:27:07 CDT CPT-98513 CBC - LAB USE ONLY 08:27:07 CDT CPT-54598 Venipuncture Draw Fee 11:09:14 CDT CPT-93401 Venipuncture Draw Fee 08:32:21 [employer] CPT-04786 Venipuncture Draw Fee 09:38:56 [employer] CPT-64308 No Charge Offi Visit 21:36:07 CDT 1 CPT-90028 Venipuncture Draw Fee 10:13:28 [employer] CPT-59546 Venipuncture Draw Fee 08:31:11 CDT CPT-77500 Aspir/Inject Med Joint 18:17:28 CDT CPT-14586 Venipuncture Draw Fee 10:13:30 CDT CPT-34238 Venipuncture Draw Fee 08:31:43 [employer] CPT-JTINJ Joint Injection 18:34:50 CDT CPT-65205 Knee 3V 12:25:09 CDT CPT-52432 Venipuncture Draw Fee 12:15:57 CDT CPT-060 Medical Surveillance Exam 21:31:43 CDT 2011 CPT-68562 Venipuncture Draw Fee 08:32:05 [employer] CPT-OV Office Visit 18:19:06 CDT
--- OUTSIDE RECORDS SUMMARY | 2020-01-18 13:51 | XMS REPORT | Clinical Summary ---
Author Author Admin, Mitch Leon Organization [facility] Address Unknown Phone Unavailable Allergies, Adverse [...] Generic Name NDC Status Provider Patient Instruction WARFARIN SODIUM 5 MG TABS TAKE 1 TABLET DAILY W ARFARIN SODIUM [id number] Active Allison Anthony APRN-C Active KEFLEX 500 MG ORAL CAPSULE 1 capsule by mouth three times da rocky x10 days CEPHALEXIN 43712836867 Active Maria Rivas RN Active METOPROLOL TARTRATE TABS 50MG TAKE 1 TABLET TWICE A DAY ([facility]) METOPROLOL TARTRATE 03847059994 Active Maria Briones Active DOXAZOSIN MESYLATE 2 MG ORAL TABLET 1 po q day for pr ostate and blood pressure DOXAZOSIN MESYLATE 15569184872 Active Mitch Urbina DO Active LOSARTAN TABS 100MG TAKE 1 TABLET DAILY FOR BLOOD PRESSURE LOSARTAN POTASSIUM 97949325023 Active Maria Rivas RN Active FLUTICASONE PROPIONATE 50 MCG/ACT NASAL SUSPENSION 1 s pray each nostril twice daily for 1 week, then once daily FLUTICASONE MO OPIONATE 07790904195 Active Becky Mohamud APRN Active PREDNISONE 20 MG ORAL TABLET 2 tabs daily for 3 days 1 tab d aily for 3 days PREDNISONE 17435829032 No Longer Active Becky Mohamud APRN Active MINOXIDIL 2.5 MG ORAL TABLET 1 tablet twice daily for high b lood pressure MINOXIDIL 52190150157 Active Mitch W Carlitos DO Ac tive METFORMIN HCL ER 500 MG ORAL TABLET EXTENDED RELEASE 2 4 HOUR 2 tablets by mouth twice daily METFORMIN HCL 14779155321 Active Mitch Urbina DO Active GLIMEPIRIDE 4 MG ORAL TABLET 1 tablet by mouth twice daily f or diabetes GLIMEPIRIDE 35791968495 Active Mitch Urbina DO Active GLIMEPIRIDE 2 MG ORAL TABLET 1 po BID GLIMEPI RIDE 63346098239 No Longer Active Mitch Urbina DO Active AMLODIPINE BESYLATE 5 MG ORAL TABLET 1 tablet by mouth daily AMLODIPINE BESYLATE 65069552615 Active Mitch Urbina DO Active PROVIGIL 200 MG ORAL TABLET 1/2 tab po q day MODA FINIL 80235095452 Active Renee Oconnor LPN Active FAMOTIDINE 20 MG ORAL TABLET by mouth twice a day 2017 FAMOTIDINE 66704615662 No Longer Active Mitch Ambrose Carlitos DO Active COLCRYS 0.6 MG ORAL TABLET 1 tab qid prn gout C OLCHICINE 51255753691 No Longer Active Mitch Arnol Urbina DO Active KEFLEX 500 MG ORAL CAPSULE 1 po qid CEPHALEXI N 66766528326 No Longer Active Mitch Arnol Urbina DO Active AMLODIPINE BESYLATE 5 MG ORAL TABLET 1 tablet by mouth daily 201 01/20/04 AMLODIPINE BESYLATE 00431572108 No Longer Active Joe fulton APRN Active MITIGARE 0.6 MG ORAL CAPSULE 2 capsules at onset of go ut pain, then take one capsule at 1 hour if symptoms persist. COLCHICINE 59 401481042 Active Mitch Urbina DO Active COUMADIN 1 MG ORAL TABLET 2 tabs orally daily with the 5mg tab to equal 7mg daily WARFARIN SODIUM 47628959286 Active Renee Oconnor LPN Active INVOKANA 100 MG ORAL TABLET 1 tablet orally daily CANAGLIFLOZIN 36196126350 Active Mitch Urbina DO Active MECLIZINE HCL 25 MG ORAL TABLET 1 po tid 3 days, then 1/2 ta b tid 3 days MECLIZINE HCL 59088956340 No Longer Active Corey SEGURA Active ALLOPURINOL 300 MG ORAL TABLET Take 1 tablet by mouth daily 2012 ALLOPURINOL 64441335506 No Longer Active Corey SEGURA Active CLONIDINE HCL 0.1 MG ORAL TABLET 1 po bid 7 days, then 1/2 t ab po bid 7 days CLONIDINE HCL 35570579923 No Longer Active Corey SEGURA Active COUMADIN 4 MG ORAL TABLET 1 tablet daily WARFAR IN SODIUM 14973964334 No Longer Active Corey SEGURA Active POLYTRIM 36519-1.1 UNIT/ML-% OPHTHALMIC SOLUTION 1 rui p in affected eye every 3 hours while awake x 7 days POLYMYXIN B-TRIMETHOP RIM 73560362669 No Longer Active Corey SEGURA Active LOSARTAN POTASSIUM-HCTZ 100-12.5 MG ORAL TABLET 1 by m outh daily for high blood pressure LOSARTAN POTASSIUM-HCTZ 91035915646 No Longer A ctive Mitch Urbina DO Active LISINOPRIL-HYDROCHLOROTHIAZIDE 20-12.5 MG ORAL TABLET 1 tab by m outh daily LISINOPRIL-HYDROCHLOROTHIAZIDE 59441807462 No Longer Active Mitch Urbina DO Active LISINOPRIL 20 MG ORAL TABLET 1 tab po at HS LIS INOPRIL 70485913831 No Longer Active Mitch Urbina DO Active COUMADIN 5 MG ORAL TABLET 1 by mouth every other day 2 WARFARIN SODIUM 29497083470 No Longer Active Mitch Urbina DO Active COUMADIN 6 MG ORAL TABLET 1 by mouth every other day 2 WARFARIN SODIUM 50213624471 No Longer Active Mitch Urbina DO Active SIMVASTATIN 40 MG ORAL TABLET 1 tab daily at bedtime SIMVASTATIN 71369127584 Active Maria Rivas RN Active SIMVASTATIN 20 MG ORAL TABLET 1 tab daily at bedtime 2 SIMVASTATIN 24291996293 No Longer Active Mitch Urbina DO Active LOVENOX 100 MG/ML SUBCUTANEOUS SOLUTION One injection twice a da y ENOXAPARIN SODIUM 61294735430 No Longer Active Carmine Yusuf MD Active JANUVIA 50 MG ORAL TABLET Take one by mouth daily SITAGLIPTIN PHOSPHATE 88707089259 Active Renee Oconnor LPN Active JANUVIA 100 MG ORAL TABLET 1/2 by mouth every day 2011 SITAGLIPTIN PHOSPHATE 05476584816 No Longer Active Bijal Segal RN Acti ve METFORMIN HCL 500 MG ORAL TABLET 2 by mouth twice daily METFORMIN HCL 12349001320 No Longer Active Renee Oconnor LPN Active COLCRYS 0.6 MG ORAL TABLET 1 po q 6 hours prn gout pain COLCHICINE 69165460801 No Longer Active Camila Reese Active LISINOPRIL 5 MG ORAL TABLET 1 by mouth every day 11/17 LISINOPRIL 52679785844 No Longer Active Nguyen Perez Active KLOR-CON 20 MEQ ORAL PACKET Take one by mouth daily 20 09/10/08 POTASSIUM CHLORIDE 76261757752 No Longer Active Nguyen Perez Active FUROSEMIDE 40 MG ORAL TABLET 1 by mouth daily F UROSEMIDE 81035600168 No Longer Active Nguyen Perez Active PROVIGIL 100 MG ORAL TABLET Take one by mouth daily 20 08/20/04 MODAFINIL 19964680019 No Longer Active Mitch Urbina DO Active BACTRIM DS 800-160 MG ORAL TABLET 1 tab by mouth twice daily 201 10/19/09 TRIMETHOPRIM-SULFAMETHOXAZOLE 47948582622 No Longer Active Elian Hays MD Active ADULT ASPIRIN LOW STRENGTH 81 MG ORAL TABLET DISINTEGR ATING 1 by mouth every daily ASPIRIN 62715682449 Active Mitch Urbina DO Ac tive BACTRIM DS 800-160 MG ORAL TABLET 1 tab by mouth twice daily 201 10/19/09 BACTRIM DS 800-160 MG ORAL TABLET 006827 TRIMETHOPRIM-SULFAMETHOXAZOLE Inactive PROVIGIL 100 MG ORAL TABLET Take one by mouth daily 20 08/20/04 PROVIGIL 100 MG ORAL TABLET 082978 MODAFINIL Inactive FUROSEMIDE 40 MG ORAL TABLET 1 by mouth daily FUROSEMIDE 40 MG ORAL TABLET 089258 FUROSEMIDE Inactive KLOR-CON 20 MEQ ORAL PACKET Take one by mouth daily 09/10/08 KLOR- CON 20 MEQ ORAL PACKET 0141960 POTASSIUM CHLORIDE Inactive LISINOPRIL 5 MG ORAL TABLET 1 by mouth every day 11/17 LISINOPRIL 5 MG ORAL TABLET 430131 LISINOPRIL Inactive COLCRYS 0.6 MG ORAL TABLET 1 po q 6 hours prn gout pain COLCRYS 0.6 MG ORAL TABLET 599806 COLCHICINE Inactive JANUVIA 100 MG ORAL TABLET 1/2 by mouth every day 2011 JANUVIA 100 MG ORAL TABLET SITAGLIPTIN PHOSPHATE Inactive SIMVASTATIN 20 MG ORAL TABLET 1 tab daily at bedtime 2 SIMVASTATIN 20 MG ORAL TABLET 210191 SIMVASTATIN Inactive COUMADIN 6 MG ORAL TABLET 1 by mouth every other day COUMADIN 6 MG ORAL TABLET 479522 WARFARIN SODIUM Inactive COUMADIN 5 MG ORAL TABLET 1 by mouth every other day COUMADIN 5 MG ORAL TABLET 767194 WARFARIN SODIUM Inactive LISINOPRIL 20 MG ORAL TABLET 1 tab po at HS LISINOPRIL 20 MG ORAL TABLET 865590 LISINOPRIL Inactive LISINOPRIL-HYDROCHLOROTHIAZIDE 20-12.5 MG ORAL TABLET 1 tab by m outh daily LISINOPRIL-HYDROCHLOROTHIAZIDE 20-12.5 MG ORAL TABLET 131839 LISINOPRIL-HYDROCHLOROTHIAZIDE Inactive POLYTRIM 52976-5.1 UNIT/ML-% OPHTHALMIC SOLUTION 1 rui p in affected eye every 3 hours while awake x 7 days POLYTRIM 1000 0-0.1 UNIT/ML-% OPHTHALMIC SOLUTION 580408 POLYMYXIN B-TRIMETHOPRIM Inactive COUMADIN 4 MG ORAL TABLET 1 tablet daily COUMADIN 4 MG ORAL TABLET 749287 WARFARIN SODIUM Inactive CLONIDINE HCL 0.1 MG ORAL TABLET 1 po bid 7 days, then 1/2 t ab po bid 7 days CLONIDINE HCL 0.1 MG ORAL TABLET 303494 CLONIDIN E HCL Inactive ALLOPURINOL 300 MG ORAL TABLET Take 1 tablet by mouth daily 2012 ALLOPURINOL 300 MG ORAL TABLET 263902 ALLOPURINOL I nactive MECLIZINE HCL 25 MG ORAL TABLET 1 po tid 3 days, then 1/2 ta b tid 3 days MECLIZINE HCL 25 MG ORAL TABLET 049722 MECLIZINE HCL Inactive AMLODIPINE BESYLATE 5 MG ORAL TABLET 1 tablet by mouth daily 201 01/20/04 AMLODIPINE BESYLATE 5 MG ORAL TABLET 493997 AMLODIPINE BESYLATE Inactive KEFLEX 500 MG ORAL CAPSULE 1 po qid K EFLEX 500 MG ORAL CAPSULE 286002 CEPHALEXIN Inactive COLCRYS 0.6 MG ORAL TABLET 1 tab qid prn gout COLCRYS 0.6 MG ORAL TABLET 889463 COLCHICINE Inactive FAMOTIDINE 20 MG ORAL TABLET by mouth twice a day 2017 FAMOTIDINE 20 MG ORAL TABLET 329511 FAMOTIDINE Inactive GLIMEPIRIDE 2 MG ORAL TABLET 1 po BID GLIMEPIRIDE 2 MG ORAL TABLET 708887 GLIMEPIRIDE Inactive LOVENOX 100 MG/ML SUBCUTANEOUS SOLUTION One injection twice a da y LOVENOX 100 MG/ML SUBCUTANEOUS SOLUTION 684908 ENOXAPAR IN SODIUM Inactive PREDNISONE 20 MG ORAL TABLET 2 tabs daily for 3 days 1 tab d aily for 3 days PREDNISONE 20 MG ORAL TABLET 357285 PREDNISONE Inactive Advance Directives Directive Description Start [...] mg/dL Encounters Code Encounter Date Provider Facility CPT-77115 [id number] Vst-Est Level IV 16:21:22 CDT Bru ce [facility] CPT-35790 Level 3 Est. Patient 15:18:36 CDT Becky andersno APRN [facility] CPT-44452 [id number]-Tde Vst-Est Level IV 10:06:35 CDT Bru ce [facility] CPT-83835 75683-Dbe Vst-Est Level IV 10:52:00 SCANNING COORDINATOR Bru ce [facility] CPT-74588 Level 3 Est. Patient 18:25:53 CDT Mitch Castellano [facility] CPT-85176 Level 3 Est. Patient 19:43:34 CDT Mitch W Nona luis [facility] CPT-54594 Level 4 Est. Patient 09:30:18 CDT Mitch luis [facility] CPT-75724 Level 3 Est. Patient 15:10:14 CDT Joe Gomez [facility]-14735 Level 3 Est. Patient 15:03:46 CDT Devonjustincarlitos Gomez [facility]-90331 Level 3 Est. Patient 14:21:06 CDT Mitch luis [facility] CPT-17438 Level 3 Est. Patient 14:52:06 CDT Joe Jason [facility]-58920 Level 3 Est. Patient 09:34:30 SCANNING COORDINATOR Mitch luis [facility] CPT-31933 Level 3 Est. Patient 09:37:[address] [facility]-41790 Level 3 Est. Patient 17:01:00 SCANNING COORDINATOR Mitch luis [facility] CPT-45846 Level 3 Est. Patient 13:53:19 SCANNING COORDINATOR Mitch luis [facility] CPT-61963 Level 3 Est. Patient 19:19:37 SCANNING COORDINATOR Mitch luis [facility] CPT-29565 Level 3 Est. Patient 13:25:53 SCANNING COORDINATOR Tavo toure MD [facility] CPT-29702 Level 3 Est. Patient 18:17:28 CDT Mitch luis [facility] CPT-73882 Level 3 Est. Patient 15:22:57 CDT Mitch luis [facility] CPT-17138 Level 3 Est. Patient 18:21:50 CDT Mitch luis [facility] CPT-81372 Level 3 Est. Patient 18:20:38 CDT Mitch luis [facility] CPT-04525 Level 3 Est. Patient 15:37:55 CDT Mitch luis [facility] CPT-24339 Level 2 Est. Patient 15:54:44 CDT Carmine benton MD [facility] CPT-40303 Level 3 Est. Patient 21:46:01 SCANNING COORDINATOR Mitch luis [facility] CPT-33404 Level 3 Est. Patient 22:15:50 CDT Mitch luis [facility] CPT-17834 Level 3 Est. Patient 10:48:15 CDT Mitch luis [facility] CPT-12405 Level 3 Est. Patient 23:20:57 CDT Tavo toure MD [facility] CPT-46225 Level 3 Est. Patient 16:26:13 CDT Mitch luis [facility] Procedures Code Procedure Name Date Entry Date Standard Desc ription CPT-60251 Venipuncture Draw Fee 08:26:21 CDT CPT-13063 Venous Duplex Left Leg XRAY USE ONLY 10:43:10 CDT CPT-74211 Venipuncture Draw Fee 17:04:55 CDT CPT-06390 Venipuncture Draw Fee 17:20:50 CDT CPT-25385 Venipuncture Draw Fee 18:00:48 CDT CPT-85696 Venipuncture Draw Fee 14:56:20 CDT CPT-JTINJ Asp/Joint Injection 18:47:02 CDT CPT-92042 Venipuncture Draw Fee 09:26:17 CDT CPT-35856 PT/INR - LAB USE ONLY 13:32:49 SCANNING COORDINATOR CPT-93532 Venipuncture Draw Fee 13:32:49 SCANNING COORDINATOR CPT-81759 PT/INR - LAB USE ONLY 10:34:49 SCANNING COORDINATOR CPT-54672 Venipuncture Draw Fee 10:34:48 SCANNING COORDINATOR CPT-58410 PT/INR - LAB USE ONLY 09:22:03 SCANNING COORDINATOR CPT-60852 Venipuncture Draw Fee 09:22:02 SCANNING COORDINATOR CPT-63427 Hemoccult IFOBT - LAB USE ONLY 10:27:22 CDT CPT-13585 Venipuncture Draw Fee 08:27:08 CDT CPT-37989 Liver Profile - LAB USE ONLY 08:27:07 CDT 2 CPT-06519 Microalbumin - LAB USE ONLY 08:27:07 CDT 20 25/05/09 CPT-69628 PT/INR - LAB USE ONLY 08:27:07 CDT CPT-28556 HGBA1C - LAB USE ONLY 08:27:07 CDT CPT-76345 CBC - LAB USE ONLY 08:27:07 CDT CPT-54896 Venipuncture Draw Fee 11:09:14 CDT CPT-75697 Venipuncture Draw Fee 08:32:21 SCANNING COORDINATOR CPT-69454 Venipuncture Draw Fee 09:38:56 SCANNING COORDINATOR CPT-28715 No Charge Offi Visit 21:36:07 CDT 1 CPT-66493 Venipuncture Draw Fee 10:13:28 SCANNING COORDINATOR CPT-36441 Venipuncture Draw Fee 08:31:11 CDT CPT-60555 Aspir/Inject Med Joint 18:17:28 CDT CPT-23186 Venipuncture Draw Fee 10:13:30 CDT CPT-03386 Venipuncture Draw Fee 08:31:43 SCANNING COORDINATOR CPT-JTINJ Joint Injection 18:34:50 CDT CPT-22877 Knee 3V 12:25:09 CDT CPT-39979 Venipuncture Draw Fee 12:15:57 CDT CPT-060 Medical Surveillance Exam 21:31:43 CDT 2011 CPT-87740 Venipuncture Draw Fee 08:32:05 SCANNING COORDINATOR CPT-OV Office Visit 18:19:06 CDT
--- OUTSIDE RECORDS SUMMARY | 2020-01-18 13:51 | XMS REPORT | Clinical Summary ---
Author Author Admin, Mitch Leon Organization [facility] [employer] Address Unknown Phone Unavailable Allergies, Adverse Reactions, [...] Coronary atherosclerosis of unspecified type of vessel, ambler or graft EDEMA 782.3 Resolved Mitch Urbina [...] three times da rocky x10 days CEPHALEXIN 83470730005 Active Maria Rivas RN Active METOPROLOL TARTRATE TABS 50MG TAKE 1 TABLET TWICE A DAY ([facility] WORK) METOPROLOL TARTRATE 25335979780 Active Maria Briones Active DOXAZOSIN MESYLATE 2 MG ORAL TABLET 1 po q day for pr ostate and blood pressure DOXAZOSIN MESYLATE 31027287193 Active Mitch Urbina DO Active LOSARTAN TABS 100MG TAKE 1 TABLET DAILY FOR BLOOD PRESSURE LOSARTAN POTASSIUM 21060431432 Active Maria Rivas RN Active FLUTICASONE PROPIONATE 50 MCG/ACT NASAL SUSPENSION 1 s pray each nostril twice daily for 1 week, then once daily FLUTICASONE PA OPIONATE 12832103177 Active Becky Sell REGULATORY CONSULTANT Active PREDNISONE 20 MG ORAL TABLET 2 tabs daily for 3 days 1 tab d aily for 3 days PREDNISONE 58271516980 No Longer Active Becky Sell REGULATORY CONSULTANT Active MINOXIDIL 2.5 MG ORAL TABLET 1 tablet twice daily for high b lood pressure MINOXIDIL 90245465189 Active Mitch Urbina DO Ac tive METFORMIN HCL ER 500 MG ORAL TABLET EXTENDED RELEASE 2 4 HOUR 2 tablets by mouth twice daily METFORMIN HCL 56742098605 Active Mitch W Carlitos DO Active GLIMEPIRIDE 4 MG ORAL TABLET 1 tablet by mouth twice daily f or diabetes GLIMEPIRIDE 95746810252 Active Mitch Urbina DO Active GLIMEPIRIDE 2 MG ORAL TABLET 1 po BID GLIMEPI RIDE 96540392585 No Longer Active Mitch Urbina DO Active AMLODIPINE BESYLATE 5 MG ORAL TABLET 1 tablet by mouth daily AMLODIPINE BESYLATE 14165379064 Active Mitch Urbina DO Active PROVIGIL 200 MG ORAL TABLET 1/2 tab po q day MODA FINIL 08870719887 Active Renee Oconnor LPN Active FAMOTIDINE 20 MG ORAL TABLET by mouth twice a day 2017 FAMOTIDINE 77024565089 No Longer Active Mitch Urbina DO Active COLCRYS 0.6 MG ORAL TABLET 1 tab qid prn gout C OLCHICINE 81173398688 No Longer Active Mitch Urbina DO Active KEFLEX 500 MG ORAL CAPSULE 1 po qid CEPHALEXI N 29936776250 No Longer Active Mitch Urbina DO Active AMLODIPINE BESYLATE 5 MG ORAL TABLET 1 tablet by mouth daily 201 01/20/04 AMLODIPINE BESYLATE 63851541938 No Longer Active Joe fulton APRN Active MITIGARE 0.6 MG ORAL CAPSULE 2 capsules at onset of go ut pain, then take one capsule at 1 hour if symptoms persist. COLCHICINE 59 367108816 Active Mitch Urbina DO Active COUMADIN 1 MG ORAL TABLET 2 tabs orally daily with the 5mg tab to equal 7mg daily WARFARIN SODIUM 43279212335 Active Renee Oconnor LPN Active INVOKANA 100 MG ORAL TABLET 1 tablet orally daily CANAGLIFLOZIN 29933175932 Active Mitch Urbina DO Active MECLIZINE HCL 25 MG ORAL TABLET 1 po tid 3 days, then 1/2 ta b tid 3 days MECLIZINE HCL 86911463054 No Longer Active Corey SEGURA Active ALLOPURINOL 300 MG ORAL TABLET Take 1 tablet by mouth daily 2012 ALLOPURINOL 69687149495 No Longer Active Corey SEGURA Active CLONIDINE HCL 0.1 MG ORAL TABLET 1 po bid 7 days, then 1/2 t ab po bid 7 days CLONIDINE HCL 01995843563 No Longer Active Corey SEGURA Active COUMADIN 5 MG ORAL TABLET 1 tab PO daily WARFAR IN SODIUM 31205605028 Active Renee Oconnor LPN Active COUMADIN 4 MG ORAL TABLET 1 tablet daily WARFAR IN SODIUM 59302254175 No Longer Active Corey SEGURA Active POLYTRIM 69248-2.1 UNIT/ML-% OPHTHALMIC SOLUTION 1 rui p in affected eye every 3 hours while awake x 7 days POLYMYXIN B-TRIMETHOP RIM 03719663925 No Longer Active Corey SEGURA Active LOSARTAN POTASSIUM-HCTZ 100-12.5 MG ORAL TABLET 1 by m outh daily for high blood pressure LOSARTAN POTASSIUM-HCTZ 53044316853 No Longer A ctive Mitch Urbina DO Active LISINOPRIL-HYDROCHLOROTHIAZIDE 20-12.5 MG ORAL TABLET 1 tab by m outh daily LISINOPRIL-HYDROCHLOROTHIAZIDE 86870808453 No Longer Active Mitch Urbina DO Active LISINOPRIL 20 MG ORAL TABLET 1 tab po at HS LIS INOPRIL 66252844833 No Longer Active Mitch Urbina DO Active COUMADIN 5 MG ORAL TABLET 1 by mouth every other day 2 WARFARIN SODIUM 65664539407 No Longer Active Mitch Urbina DO Active COUMADIN 6 MG ORAL TABLET 1 by mouth every other day 2 WARFARIN SODIUM 80017835707 No Longer Active Mitch Urbina DO Active SIMVASTATIN 40 MG ORAL TABLET 1 tab daily at bedtime SIMVASTATIN 28854721266 Active Maria Rivas RN Active SIMVASTATIN 20 MG ORAL TABLET 1 tab daily at bedtime 2 SIMVASTATIN 31128090350 No Longer Active Mitch Urbina DO Active LOVENOX 100 MG/ML SUBCUTANEOUS SOLUTION One injection twice a da y ENOXAPARIN SODIUM 48167471602 No Longer Active Carmine Yusuf MD Active JANUVIA 50 MG ORAL TABLET Take one by mouth daily SITAGLIPTIN PHOSPHATE 37695225314 Active Renee Oconnor LPN Active JANUVIA 100 MG ORAL TABLET 1/2 by mouth every day 2011 SITAGLIPTIN PHOSPHATE 34075635544 No Longer Active Bijal Segal RN Acti ve METFORMIN HCL 500 MG ORAL TABLET 2 by mouth twice daily METFORMIN HCL 64411612799 No Longer Active Renee Oconnor LPN Active COLCRYS 0.6 MG ORAL TABLET 1 po q 6 hours prn gout pain COLCHICINE 08894172830 No Longer Active Camila Reese Active LISINOPRIL 5 MG ORAL TABLET 1 by mouth every day 11/17 LISINOPRIL 74256977962 No Longer Active Nguyen Perez Active KLOR-CON 20 MEQ ORAL PACKET Take one by mouth daily 20 09/10/08 POTASSIUM CHLORIDE 40450356290 No Longer Active Nguyen Perez Active FUROSEMIDE 40 MG ORAL TABLET 1 by mouth daily F UROSEMIDE 62057772062 No Longer Active Nguyen Perez Active PROVIGIL 100 MG ORAL TABLET Take one by mouth daily 20 08/20/04 MODAFINIL 73866105749 No Longer Active Mitch Urbina DO Active BACTRIM DS 800-160 MG ORAL TABLET 1 tab by mouth twice daily 201 10/19/09 TRIMETHOPRIM-SULFAMETHOXAZOLE 61789778288 No Longer Active Elian Hays MD Active ADULT ASPIRIN LOW STRENGTH 81 MG ORAL TABLET DISINTEGR ATING 1 by mouth every daily ASPIRIN 77442791073 Active Mitch Urbina DO Ac tive BACTRIM DS 800-160 MG ORAL TABLET 1 tab by mouth twice daily 201 10/19/09 BACTRIM DS 800-160 MG ORAL TABLET 725303 TRIMETHOPRIM-SULFAMETHOXAZOLE Inactive PROVIGIL 100 MG ORAL TABLET Take one by mouth daily 20 08/20/04 PROVIGIL 100 MG ORAL TABLET 908002 MODAFINIL Inactive FUROSEMIDE 40 MG ORAL TABLET 1 by mouth daily FUROSEMIDE 40 MG ORAL TABLET 935593 FUROSEMIDE Inactive KLOR-CON 20 MEQ ORAL PACKET Take one by mouth daily 09/10/08 KLOR- CON 20 MEQ ORAL PACKET 8020765 POTASSIUM CHLORIDE Inactive LISINOPRIL 5 MG ORAL TABLET 1 by mouth every day 11/17 LISINOPRIL 5 MG ORAL TABLET 008479 LISINOPRIL Inactive COLCRYS 0.6 MG ORAL TABLET 1 po q 6 hours prn gout pain COLCRYS 0.6 MG ORAL TABLET 062415 COLCHICINE Inactive JANUVIA 100 MG ORAL TABLET 1/2 by mouth every day 2011 JANUVIA 100 MG ORAL TABLET SITAGLIPTIN PHOSPHATE Inactive SIMVASTATIN 20 MG ORAL TABLET 1 tab daily at bedtime 2 SIMVASTATIN 20 MG ORAL TABLET 155615 SIMVASTATIN Inactive COUMADIN 6 MG ORAL TABLET 1 by mouth every other day COUMADIN 6 MG ORAL TABLET 132981 WARFARIN SODIUM Inactive COUMADIN 5 MG ORAL TABLET 1 by mouth every other day COUMADIN 5 MG ORAL TABLET 637438 WARFARIN SODIUM Inactive LISINOPRIL 20 MG ORAL TABLET 1 tab po at HS LISINOPRIL 20 MG ORAL TABLET 288769 LISINOPRIL Inactive LISINOPRIL-HYDROCHLOROTHIAZIDE 20-12.5 MG ORAL TABLET 1 tab by m outh daily LISINOPRIL-HYDROCHLOROTHIAZIDE 20-12.5 MG ORAL TABLET 538846 LISINOPRIL-HYDROCHLOROTHIAZIDE Inactive POLYTRIM 54540-9.1 UNIT/ML-% OPHTHALMIC SOLUTION 1 rui p in affected eye every 3 hours while awake x 7 days POLYTRIM 1000 0-0.1 UNIT/ML-% OPHTHALMIC SOLUTION 029639 POLYMYXIN B-TRIMETHOPRIM Inactive COUMADIN 4 MG ORAL TABLET 1 tablet daily COUMADIN 4 MG ORAL TABLET 721649 WARFARIN SODIUM Inactive CLONIDINE HCL 0.1 MG ORAL TABLET 1 po bid 7 days, then 1/2 t ab po bid 7 days CLONIDINE HCL 0.1 MG ORAL TABLET 552223 CLONIDIN E HCL Inactive ALLOPURINOL 300 MG ORAL TABLET Take 1 tablet by mouth daily 2012 ALLOPURINOL 300 MG ORAL TABLET 514041 ALLOPURINOL I nactive MECLIZINE HCL 25 MG ORAL TABLET 1 po tid 3 days, then 1/2 ta b tid 3 days MECLIZINE HCL 25 MG ORAL TABLET 675456 MECLIZINE HCL Inactive AMLODIPINE BESYLATE 5 MG ORAL TABLET 1 tablet by mouth daily 201 01/20/04 AMLODIPINE BESYLATE 5 MG ORAL TABLET 635960 AMLODIPINE BESYLATE Inactive KEFLEX 500 MG ORAL CAPSULE 1 po qid K EFLEX 500 MG ORAL CAPSULE 822627 CEPHALEXIN Inactive COLCRYS 0.6 MG ORAL TABLET 1 tab qid prn gout COLCRYS 0.6 MG ORAL TABLET 172809 COLCHICINE Inactive FAMOTIDINE 20 MG ORAL TABLET by mouth twice a day 2017 FAMOTIDINE 20 MG ORAL TABLET 142026 FAMOTIDINE Inactive GLIMEPIRIDE 2 MG ORAL TABLET 1 po BID GLIMEPIRIDE 2 MG ORAL TABLET 358558 GLIMEPIRIDE Inactive LOVENOX 100 MG/ML SUBCUTANEOUS SOLUTION One injection twice a da y LOVENOX 100 MG/ML SUBCUTANEOUS SOLUTION 688332 ENOXAPAR IN SODIUM Inactive PREDNISONE 20 MG ORAL TABLET 2 tabs daily for 3 days 1 tab d aily for 3 days PREDNISONE 20 MG ORAL TABLET 047077 PREDNISONE Inactive Advance Directives Directive Description Start [...] mg/dL Encounters Code Encounter Date Provider Facility CPT-14249 [id number] Vst-Est Level IV 16:21:22 CDT Bru ce [facility] CPT-60786 Level 3 Est. Patient 15:18:36 CDT Becky anderson APRN [facility] CPT-03532 [id number] Vst-Est Level IV 10:06:35 CDT Bru ce [facility] CPT-22724 [id number] Vst-Est Level IV 10:52:00 MICA BUILDER [facility] CPT-84267 Level 3 Est. Patient 18:25:53 CDT Mitch Castellano [facility] CPT-48820 Level 3 Est. Patient 19:43:34 CDT Mitch W Nona luis [facility] CPT-42796 Level 4 Est. Patient 09:30:18 CDT Mitch luis [facility] CPT-58028 Level 3 Est. Patient 15:10:14 CDT Joe Gomez [facility]-63649 Level 3 Est. Patient 15:03:46 CDT Devonjustincarlitos Gomez [facility]-76868 Level 3 Est. Patient 14:21:06 CDT Mitch luis [facility] CPT-62563 Level 3 Est. Patient 14:52:06 CDT Joe Jason [facility]-90853 Level 3 Est. Patient 09:34:30 MICA BUILDER Mitch luis [facility] CPT-09498 Level 3 Est. Patient 09:37:15 CDT Mitch luis [facility] [place]-14065 Level 3 Est. Patient 17:01:00 MICA BUILDER Mitch luis [facility] CPT-66798 Level 3 Est. Patient 13:53:19 MICA BUILDER Mitch luis [facility] CPT-07737 Level 3 Est. Patient 19:19:37 MICA BUILDER Mitch luis [facility] CPT-79883 Level 3 Est. Patient 13:25:53 MICA BUILDER Tavo toure MD [facility] CPT-54106 Level 3 Est. Patient 18:17:28 CDT Mitch luis [facility] CPT-12283 Level 3 Est. Patient 15:22:57 CDT Mitch luis [facility] CPT-31285 Level 3 Est. Patient 18:21:50 CDT Mitch luis [facility] CPT-00692 Level 3 Est. Patient 18:20:38 CDT Mitch luis [facility] CPT-97131 Level 3 Est. Patient 15:37:55 CDT Mitch luis [facility] CPT-48963 Level 2 Est. Patient 15:54:44 CDT Carmine benton MD [facility] CPT-12683 Level 3 Est. Patient 21:46:01 MICA BUILDER Mitch luis [facility] CPT-45139 Level 3 Est. Patient 22:15:50 CDT Mitch luis [facility] CPT-60996 Level 3 Est. Patient 10:48:15 CDT Mitch ulis [facility] CPT-93408 Level 3 Est. Patient 23:20:57 CDT Tavo toure MD [facility] CPT-07499 Level 3 Est. Patient 16:26:13 CDT Mitch luis [facility] Procedures Code Procedure Name Date Entry Date Standard Desc ription CPT-92495 Venipuncture Draw Fee 08:26:21 CDT CPT-04761 Venous Duplex Left Leg XRAY USE ONLY 10:43:10 CDT CPT-40471 Venipuncture Draw Fee 17:04:55 CDT CPT-02702 Venipuncture Draw Fee 17:20:50 CDT CPT-31350 Venipuncture Draw Fee 18:00:48 CDT CPT-14124 Venipuncture Draw Fee 14:56:20 CDT CPT-JTINJ Asp/Joint Injection 18:47:02 CDT CPT-13765 Venipuncture Draw Fee 09:26:17 CDT CPT-10924 PT/INR - LAB USE ONLY 13:32:49 MICA BUILDER CPT-77319 Venipuncture Draw Fee 13:32:49 MICA BUILDER CPT-48224 PT/INR - LAB USE ONLY 10:34:49 MICA BUILDER CPT-35154 Venipuncture Draw Fee 10:34:48 MICA BUILDER CPT-30902 PT/INR - LAB USE ONLY 09:22:03 MICA BUILDER CPT-63320 Venipuncture Draw Fee 09:22:02 MICA BUILDER CPT-62544 Hemoccult IFOBT - LAB USE ONLY 10:27:22 CDT CPT-94722 Venipuncture Draw Fee 08:27:08 CDT CPT-79625 Liver Profile - LAB USE ONLY 08:27:07 CDT 2 CPT-11806 Microalbumin - LAB USE ONLY 08:27:07 CDT 20 25/05/09 CPT-07722 PT/INR - LAB USE ONLY 08:27:07 CDT CPT-01041 HGBA1C - LAB USE ONLY 08:27:07 CDT CPT-87076 CBC - LAB USE ONLY 08:27:07 CDT CPT-10367 Venipuncture Draw Fee 11:09:14 CDT CPT-48115 Venipuncture Draw Fee 08:32:21 MICA BUILDER CPT-16889 Venipuncture Draw Fee 09:38:56 MICA BUILDER CPT-17424 No Charge Offi Visit 21:36:07 CDT 1 CPT-16645 Venipuncture Draw Fee 10:13:28 MICA BUILDER CPT-76858 Venipuncture Draw Fee 08:31:11 CDT CPT-01220 Aspir/Inject Med Joint 18:17:28 CDT CPT-63842 Venipuncture Draw Fee 10:13:30 CDT CPT-52820 Venipuncture Draw Fee 08:31:43 MICA BUILDER CPT-JTINJ Joint Injection 18:34:50 CDT CPT-60812 Knee 3V 12:25:09 CDT CPT-17322 Venipuncture Draw Fee 12:15:57 CDT CPT-060 Medical Surveillance Exam 21:31:43 CDT 2011 CPT-67306 Venipuncture Draw Fee 08:32:05 MICA BUILDER CPT-OV Office Visit 18:19:06 CDT
--- OUTSIDE RECORDS SUMMARY | 2020-01-18 13:52 | XMS REPORT | Clinical Summary ---
Author Author Admin, Mitch Leon Organization [facility] [employer] Address Unknown Phone Unavailable Allergies, Adverse Reactions, [...] Coronary atherosclerosis of unspecified type of vessel, agdaagux or graft EDEMA 782.3 Resolved Mitch Urbina [...] e DO BRUISE ICD-924.9 Inactive Mitch Arnol Carltios DO OLECRANON BURSITIS, RIGHT ICD-726.33 Inactive Mitch Urbina DO UNSPECIFIED ANEMIA ICD-285.9 Inactive Mitch lusi DO Malaise and fatigue ICD-780.79 Inactive Mithc Urbina DO Cough, chronic ICD-786.2 Inactive Mitch Tejeda O Sebaceous cyst, infected ICD-706.2 Inactive Mitch Urbina DO Cellulitis ICD-682.9 Inactive Mitch Urbina DO 10/23 Influenza Vaccination for Prophylaxis ICD-V04.81 9 Inactive Bhumi Robles Medication List Medication Instructions Start Date Stop Date Generic Name NDC Status Provider Patient Instruction WARFARIN SODIUM 5 MG TABS TAKE 1 TABLET DAILY W ARFARIN SODIUM 25118426738 Active Allison Anthony APRN-C Active KEFLEX 500 MG ORAL CAPSULE 1 capsule by mouth three times da rocky x10 days CEPHALEXIN 22513101365 Active Maria Rivas RN Active METOPROLOL TARTRATE TABS 50MG TAKE 1 TABLET TWICE A DAY ([facility] WORK) METOPROLOL TARTRATE 78132252093 Active Maria Briones Active DOXAZOSIN MESYLATE 2 MG ORAL TABLET 1 po q day for pr ostate and blood pressure DOXAZOSIN MESYLATE 17337189772 Active Mitch Urbina DO Active LOSARTAN TABS 100MG TAKE 1 TABLET DAILY FOR BLOOD PRESSURE LOSARTAN POTASSIUM 04156070002 Active Maria Rivas RN Active FLUTICASONE PROPIONATE 50 MCG/ACT NASAL SUSPENSION 1 s pray each nostril twice daily for 1 week, then once daily FLUTICASONE CT OPIONATE 05533415303 Active Becky Mohamud APRN Active PREDNISONE 20 MG ORAL TABLET 2 tabs daily for 3 days 1 tab d aily for 3 days PREDNISONE 98335780736 No Longer Active Becky Mohamud APRN Active MINOXIDIL 2.5 MG ORAL TABLET 1 tablet twice daily for high b lood pressure MINOXIDIL 02105767734 Active Mitch W Carlitos DO Ac tive METFORMIN HCL ER 500 MG ORAL TABLET EXTENDED RELEASE 2 4 HOUR 2 tablets by mouth twice daily METFORMIN HCL 08002904641 Active Mitch Urbina DO Active GLIMEPIRIDE 4 MG ORAL TABLET 1 tablet by mouth twice daily f or diabetes GLIMEPIRIDE 06405046733 Active Mitch Urbina DO Active GLIMEPIRIDE 2 MG ORAL TABLET 1 po BID GLIMEPI RIDE 05683048701 No Longer Active Mitch Urbina DO Active AMLODIPINE BESYLATE 5 MG ORAL TABLET 1 tablet by mouth daily AMLODIPINE BESYLATE 72561738454 Active Mitch Urbina DO Active PROVIGIL 200 MG ORAL TABLET 1/2 tab po q day MODA FINIL 72462827704 Active Renee Oconnor LPN Active FAMOTIDINE 20 MG ORAL TABLET by mouth twice a day 2017 FAMOTIDINE 44005628437 No Longer Active Mitch Ambrose Carlitos DO Active COLCRYS 0.6 MG ORAL TABLET 1 tab qid prn gout C OLCHICINE 27764232722 No Longer Active Mitch Arnol Urbina DO Active KEFLEX 500 MG ORAL CAPSULE 1 po qid CEPHALEXI N 24367232720 No Longer Active Mitch Arnol Urbina DO Active AMLODIPINE BESYLATE 5 MG ORAL TABLET 1 tablet by mouth daily 201 01/20/04 AMLODIPINE BESYLATE 20334960870 No Longer Active Joe fulton APRN Active MITIGARE 0.6 MG ORAL CAPSULE 2 capsules at onset of go ut pain, then take one capsule at 1 hour if symptoms persist. COLCHICINE 59 500323565 Active Mitch Urbina DO Active COUMADIN 1 MG ORAL TABLET 2 tabs orally daily with the 5mg tab to equal 7mg daily WARFARIN SODIUM 84681858572 Active Renee Oconnor LPN Active INVOKANA 100 MG ORAL TABLET 1 tablet orally daily CANAGLIFLOZIN 36431628395 Active Mitch Urbina DO Active MECLIZINE HCL 25 MG ORAL TABLET 1 po tid 3 days, then 1/2 ta b tid 3 days MECLIZINE HCL 03559618532 No Longer Active Corey SEGURA Active ALLOPURINOL 300 MG ORAL TABLET Take 1 tablet by mouth daily 2012 ALLOPURINOL 96319518296 No Longer Active Corey SEGURA Active CLONIDINE HCL 0.1 MG ORAL TABLET 1 po bid 7 days, then 1/2 t ab po bid 7 days CLONIDINE HCL 07400990694 No Longer Active Corey SEGURA Active COUMADIN 4 MG ORAL TABLET 1 tablet daily WARFAR IN SODIUM 04412838832 No Longer Active Corey SEGURA Active POLYTRIM 23465-4.1 UNIT/ML-% OPHTHALMIC SOLUTION 1 rui p in affected eye every 3 hours while awake x 7 days POLYMYXIN B-TRIMETHOP RIM 76506835078 No Longer Active Corey SEGURA Active LOSARTAN POTASSIUM-HCTZ 100-12.5 MG ORAL TABLET 1 by m outh daily for high blood pressure LOSARTAN POTASSIUM-HCTZ 62102514275 No Longer A ctive Mitch Urbina DO Active LISINOPRIL-HYDROCHLOROTHIAZIDE 20-12.5 MG ORAL TABLET 1 tab by m outh daily LISINOPRIL-HYDROCHLOROTHIAZIDE 28163457664 No Longer Active Mitch Urbina DO Active LISINOPRIL 20 MG ORAL TABLET 1 tab po at HS LIS INOPRIL 70587101801 No Longer Active Mitch Urbina DO Active COUMADIN 5 MG ORAL TABLET 1 by mouth every other day 2 WARFARIN SODIUM 80649199233 No Longer Active Mitch Urbina DO Active COUMADIN 6 MG ORAL TABLET 1 by mouth every other day 2 WARFARIN SODIUM 81501488347 No Longer Active Mitch Urbina DO Active SIMVASTATIN 40 MG ORAL TABLET 1 tab daily at bedtime SIMVASTATIN 30580132235 Active Maria Rivas RN Active SIMVASTATIN 20 MG ORAL TABLET 1 tab daily at bedtime 2 SIMVASTATIN 40414436111 No Longer Active Mitch Urbina DO Active LOVENOX 100 MG/ML SUBCUTANEOUS SOLUTION One injection twice a da y ENOXAPARIN SODIUM 21661948800 No Longer Active Carmine Yusuf MD Active JANUVIA 50 MG ORAL TABLET Take one by mouth daily SITAGLIPTIN PHOSPHATE 24994903507 Active Renee Oconnor LPN Active JANUVIA 100 MG ORAL TABLET 1/2 by mouth every day 2011 SITAGLIPTIN PHOSPHATE 13988155203 No Longer Active Bijal Segal RN Acti ve METFORMIN HCL 500 MG ORAL TABLET 2 by mouth twice daily METFORMIN HCL 58168412327 No Longer Active Renee Oconnor LPN Active COLCRYS 0.6 MG ORAL TABLET 1 po q 6 hours prn gout pain COLCHICINE 71941853298 No Longer Active Camila Reese Active LISINOPRIL 5 MG ORAL TABLET 1 by mouth every day 11/17 LISINOPRIL 68982554265 No Longer Active Nguyen Perez Active KLOR-CON 20 MEQ ORAL PACKET Take one by mouth daily 20 09/10/08 POTASSIUM CHLORIDE 82791617678 No Longer Active Nguyen Perez Active FUROSEMIDE 40 MG ORAL TABLET 1 by mouth daily F UROSEMIDE 44575208759 No Longer Active Nguyen Perez Active PROVIGIL 100 MG ORAL TABLET Take one by mouth daily 20 08/20/04 MODAFINIL 99525104496 No Longer Active Mitch Urbina DO Active BACTRIM DS 800-160 MG ORAL TABLET 1 tab by mouth twice daily 201 10/19/09 TRIMETHOPRIM-SULFAMETHOXAZOLE 51283833508 No Longer Active Elian Hays MD Active ADULT ASPIRIN LOW STRENGTH 81 MG ORAL TABLET DISINTEGR ATING 1 by mouth every daily ASPIRIN 69854637686 Active Mitch Urbina DO Ac tive BACTRIM DS 800-160 MG ORAL TABLET 1 tab by mouth twice daily 201 10/19/09 BACTRIM DS 800-160 MG ORAL TABLET 340204 TRIMETHOPRIM-SULFAMETHOXAZOLE Inactive PROVIGIL 100 MG ORAL TABLET Take one by mouth daily 20 08/20/04 PROVIGIL 100 MG ORAL TABLET 672845 MODAFINIL Inactive FUROSEMIDE 40 MG ORAL TABLET 1 by mouth daily FUROSEMIDE 40 MG ORAL TABLET 586283 FUROSEMIDE Inactive KLOR-CON 20 MEQ ORAL PACKET Take one by mouth daily 09/10/08 KLOR- CON 20 MEQ ORAL PACKET 9315262 POTASSIUM CHLORIDE Inactive LISINOPRIL 5 MG ORAL TABLET 1 by mouth every day 11/17 LISINOPRIL 5 MG ORAL TABLET 447762 LISINOPRIL Inactive COLCRYS 0.6 MG ORAL TABLET 1 po q 6 hours prn gout pain COLCRYS 0.6 MG ORAL TABLET 643544 COLCHICINE Inactive JANUVIA 100 MG ORAL TABLET 1/2 by mouth every day 2011 JANUVIA 100 MG ORAL TABLET SITAGLIPTIN PHOSPHATE Inactive SIMVASTATIN 20 MG ORAL TABLET 1 tab daily at bedtime 2 SIMVASTATIN 20 MG ORAL TABLET 246726 SIMVASTATIN Inactive COUMADIN 6 MG ORAL TABLET 1 by mouth every other day COUMADIN 6 MG ORAL TABLET 611741 WARFARIN SODIUM Inactive COUMADIN 5 MG ORAL TABLET 1 by mouth every other day COUMADIN 5 MG ORAL TABLET 209417 WARFARIN SODIUM Inactive LISINOPRIL 20 MG ORAL TABLET 1 tab po at HS LISINOPRIL 20 MG ORAL TABLET 165717 LISINOPRIL Inactive LISINOPRIL-HYDROCHLOROTHIAZIDE 20-12.5 MG ORAL TABLET 1 tab by m outh daily LISINOPRIL-HYDROCHLOROTHIAZIDE 20-12.5 MG ORAL TABLET 873415 LISINOPRIL-HYDROCHLOROTHIAZIDE Inactive POLYTRIM 63329-9.1 UNIT/ML-% OPHTHALMIC SOLUTION 1 rui p in affected eye every 3 hours while awake x 7 days POLYTRIM 1000 0-0.1 UNIT/ML-% OPHTHALMIC SOLUTION 938610 POLYMYXIN B-TRIMETHOPRIM Inactive COUMADIN 4 MG ORAL TABLET 1 tablet daily COUMADIN 4 MG ORAL TABLET 693321 WARFARIN SODIUM Inactive CLONIDINE HCL 0.1 MG ORAL TABLET 1 po bid 7 days, then 1/2 t ab po bid 7 days CLONIDINE HCL 0.1 MG ORAL TABLET 868545 CLONIDIN E HCL Inactive ALLOPURINOL 300 MG ORAL TABLET Take 1 tablet by mouth daily 2012 ALLOPURINOL 300 MG ORAL TABLET 688370 ALLOPURINOL I nactive MECLIZINE HCL 25 MG ORAL TABLET 1 po tid 3 days, then 1/2 ta b tid 3 days MECLIZINE HCL 25 MG ORAL TABLET 093090 MECLIZINE HCL Inactive AMLODIPINE BESYLATE 5 MG ORAL TABLET 1 tablet by mouth daily 201 01/20/04 AMLODIPINE BESYLATE 5 MG ORAL TABLET 107797 AMLODIPINE BESYLATE Inactive KEFLEX 500 MG ORAL CAPSULE 1 po qid K EFLEX 500 MG ORAL CAPSULE 872834 CEPHALEXIN Inactive COLCRYS 0.6 MG ORAL TABLET 1 tab qid prn gout COLCRYS 0.6 MG ORAL TABLET 134073 COLCHICINE Inactive FAMOTIDINE 20 MG ORAL TABLET by mouth twice a day 2017 FAMOTIDINE 20 MG ORAL TABLET 909306 FAMOTIDINE Inactive GLIMEPIRIDE 2 MG ORAL TABLET 1 po BID GLIMEPIRIDE 2 MG ORAL TABLET 212075 GLIMEPIRIDE Inactive LOVENOX 100 MG/ML SUBCUTANEOUS SOLUTION One injection twice a da y LOVENOX 100 MG/ML SUBCUTANEOUS SOLUTION 322256 ENOXAPAR IN SODIUM Inactive PREDNISONE 20 MG ORAL TABLET 2 tabs daily for 3 days 1 tab d aily for 3 days PREDNISONE 20 MG ORAL TABLET 430543 PREDNISONE Inactive Advance Directives Directive Description Start [...] mg/dL Encounters Code Encounter Date Provider Facility CPT-72879 [id number] Vst-Est Level IV 16:21:22 CDT Bru ce W [facility] CPT-76937 Level 3 Est. Patient 15:18:36 CDT Becky anderson APRN [facility] CPT-21654 [id number] Vst-Est Level IV 10:06:35 CDT Bru ce [facility] CPT-04767 [id number] Vst-Est Level IV 10:52:00 CHEMICAL LABORATORY SCIENTIST Bru ce [facility] CPT-99589 Level 3 Est. Patient 18:25:[address] [facility] CPT-78048 Level 3 Est. Patient 19:43:34 CDT Mitch W Nona luis [facility] CPT-19932 Level 4 Est. Patient 09:30:18 CDT Mitch luis [facility] CPT-12938 Level 3 Est. Patient 15:10:14 CDT Joe Gomez [facility]-45191 Level 3 Est. Patient 15:03:46 CDT Devonjustincarlitos Gomez [facility]-37048 Level 3 Est. Patient 14:21:06 CDT Mitch luis [facility] CPT-92200 Level 3 Est. Patient 14:52:06 CDT Joe Jason [facility]-01913 Level 3 Est. Patient 09:34:30 CHEMICAL LABORATORY SCIENTIST Mitch luis [facility] CPT-41826 Level 3 Est. Patient 09:37:15 CDT Mitch luis [facility]-32894 Level 3 Est. Patient 17:01:00 CHEMICAL LABORATORY SCIENTIST Mitch luis [facility] CPT-05578 Level 3 Est. Patient 13:53:19 CHEMICAL LABORATORY SCIENTIST Mitch luis [facility] CPT-51839 Level 3 Est. Patient 19:19:37 CHEMICAL LABORATORY SCIENTIST Mitch luis [facility] CPT-49929 Level 3 Est. Patient 13:25:53 CHEMICAL LABORATORY SCIENTIST Tavo toure MD [facility] CPT-51714 Level 3 Est. Patient 18:17:28 CDT Mitch luis [facility] CPT-21251 Level 3 Est. Patient 15:22:57 CDT Mitch luis [facility] CPT-99838 Level 3 Est. Patient 18:21:50 CDT Mitch luis [facility] CPT-78401 Level 3 Est. Patient 18:20:38 CDT Mitch luis [facility] CPT-30342 Level 3 Est. Patient 15:37:55 CDT Mitch luis [facility] CPT-93146 Level 2 Est. Patient 15:54:44 CDT Carmine benton MD [facility] CPT-21690 Level 3 Est. Patient 21:46:01 CHEMICAL LABORATORY SCIENTIST Mitch luis [facility] CPT-94731 Level 3 Est. Patient 22:15:50 CDT Mitch luis [facility] CPT-95467 Level 3 Est. Patient 10:48:15 CDT Mitch luis [facility] CPT-85609 Level 3 Est. Patient 23:20:57 CDT Tavo toure MD [facility] CPT-93504 Level 3 Est. Patient 16:26:13 CDT Mitch luis [facility] Procedures Code Procedure Name Date Entry Date Standard Desc ription CPT-27647 Venipuncture Draw Fee 08:26:21 CDT CPT-53623 Venous Duplex Left Leg XRAY USE ONLY 10:43:10 CDT CPT-73785 Venipuncture Draw Fee 17:04:55 CDT CPT-92152 Venipuncture Draw Fee 17:20:50 CDT CPT-90420 Venipuncture Draw Fee 18:00:48 CDT CPT-02926 Venipuncture Draw Fee 14:56:20 CDT CPT-JTINJ Asp/Joint Injection 18:47:02 CDT CPT-17070 Venipuncture Draw Fee 09:26:17 CDT CPT-54723 PT/INR - LAB USE ONLY 13:32:49 CHEMICAL LABORATORY SCIENTIST CPT-41041 Venipuncture Draw Fee 13:32:49 CHEMICAL LABORATORY SCIENTIST CPT-70970 PT/INR - LAB USE ONLY 10:34:49 CHEMICAL LABORATORY SCIENTIST CPT-56392 Venipuncture Draw Fee 10:34:48 CHEMICAL LABORATORY SCIENTIST CPT-57189 PT/INR - LAB USE ONLY 09:22:03 CHEMICAL LABORATORY SCIENTIST CPT-22306 Venipuncture Draw Fee 09:22:02 CHEMICAL LABORATORY SCIENTIST CPT-20518 Hemoccult IFOBT - LAB USE ONLY 10:27:22 CDT CPT-98437 Venipuncture Draw Fee 08:27:08 CDT CPT-88688 Liver Profile - LAB USE ONLY 08:27:07 CDT 2 CPT-68475 Microalbumin - LAB USE ONLY 08:27:07 CDT 20 25/05/09 CPT-16169 PT/INR - LAB USE ONLY 08:27:07 CDT CPT-98252 HGBA1C - LAB USE ONLY 08:27:07 CDT CPT-49052 CBC - LAB USE ONLY 08:27:07 CDT CPT-23399 Venipuncture Draw Fee 11:09:14 CDT CPT-65295 Venipuncture Draw Fee 08:32:21 CHEMICAL LABORATORY SCIENTIST CPT-04096 Venipuncture Draw Fee 09:38:56 CHEMICAL LABORATORY SCIENTIST CPT-67711 No Charge Offi Visit 21:36:07 CDT 1 CPT-03199 Venipuncture Draw Fee 10:13:28 CHEMICAL LABORATORY SCIENTIST CPT-46878 Venipuncture Draw Fee 08:31:11 CDT CPT-79390 Aspir/Inject Med Joint 18:17:28 CDT CPT-32348 Venipuncture Draw Fee 10:13:30 CDT CPT-33390 Venipuncture Draw Fee 08:31:43 CHEMICAL LABORATORY SCIENTIST CPT-JTINJ Joint Injection 18:34:50 CDT CPT-37160 Knee 3V 12:25:09 CDT CPT-33963 Venipuncture Draw Fee 12:15:57 CDT CPT-060 Medical Surveillance Exam 21:31:43 CDT 2011 CPT-30598 Venipuncture Draw Fee 08:32:05 CHEMICAL LABORATORY SCIENTIST CPT-OV Office Visit 18:19:06 CDT
--- OUTSIDE RECORDS SUMMARY | 2020-01-18 13:52 | XMS REPORT | Clinical Summary ---
Author Author Admin, Mitch Leon Organization [facility] Link Trigger Address Unknown Phone Unavailable Allergies, Adverse Reactions, [...] Hypoglycemia, unspecified GOUT, WRIST 274.9 Active Mitch rUbina DO Gout, unspecified LONG-TERM (CURRENT) USE OF ANTICOAGULANTS V58.61 Resol kylah Mitch Urbina DO Long-term (current) use of anticoagulant s HEALTH MAINTENANCE EXAM V70.0 Active Mitch Meraz DO Routine general medical examination at a health care facility CORONARY HEART DISEASE 414.00 Active Mitch Urbina DO Coronary atherosclerosis of unspecified type of vessel, nooksack or graft EDEMA 782.3 Resolved Mitch Urbina [...] replaced by other means Narcolepsy 347.00 Active Mtich Urbina DO 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 [...] TAKE 1 TABLET DAILY W ARFARIN SODIUM 94191088861 Active Allison Anthony APRN-C Active KEFLEX 500 MG ORAL CAPSULE 1 capsule by mouth three times da rocky x10 days CEPHALEXIN 94382131881 Active Maria Rivas RN Active METOPROLOL TARTRATE TABS 50MG TAKE 1 TABLET TWICE A DAY ([facility]) METOPROLOL TARTRATE 11980465046 Active Maria Brionse Active DOXAZOSIN MESYLATE 2 MG ORAL TABLET 1 po q day for pr ostate and blood pressure DOXAZOSIN MESYLATE 92713509119 Active Mitch Urbina DO Active LOSARTAN TABS 100MG TAKE 1 TABLET DAILY FOR BLOOD PRESSURE LOSARTAN POTASSIUM 73435072261 Active Maria Rivas RN Active FLUTICASONE PROPIONATE 50 MCG/ACT NASAL SUSPENSION 1 s pray each nostril twice daily for 1 week, then once daily FLUTICASONE AR OPIONATE 56561567165 Active Becky Mohamud APRN Active PREDNISONE 20 MG ORAL TABLET 2 tabs daily for 3 days 1 tab d aily for 3 days PREDNISONE 94832414878 No Longer Active Becky Mohamud APRN Active MINOXIDIL 2.5 MG ORAL TABLET 1 tablet twice daily for high b lood pressure MINOXIDIL 47020882199 Active Mitch W Carlitos DO Ac tive METFORMIN HCL ER 500 MG ORAL TABLET EXTENDED RELEASE 2 4 HOUR 2 tablets by mouth twice daily METFORMIN HCL 78141110049 Active Mitch Urbina DO Active GLIMEPIRIDE 4 MG ORAL TABLET 1 tablet by mouth twice daily f or diabetes GLIMEPIRIDE 50883690568 Active Mitch Urbina DO Active GLIMEPIRIDE 2 MG ORAL TABLET 1 po BID GLIMEPI RIDE 49929497282 No Longer Active Mitch Urbina DO Active AMLODIPINE BESYLATE 5 MG ORAL TABLET 1 tablet by mouth daily AMLODIPINE BESYLATE 20696491516 Active Mitch Urbina DO Active PROVIGIL 200 MG ORAL TABLET 1/2 tab po q day MODA FINIL 46853718660 Active Renee Oconnor LPN Active FAMOTIDINE 20 MG ORAL TABLET by mouth twice a day 2017 FAMOTIDINE 73947228562 No Longer Active Mitch Ambrose Carlitos DO Active COLCRYS 0.6 MG ORAL TABLET 1 tab qid prn gout C OLCHICINE 00471708432 No Longer Active Mitch Arnol Urbina DO Active KEFLEX 500 MG ORAL CAPSULE 1 po qid CEPHALEXI N 19688046109 No Longer Active Mitch Arnol Urbina DO Active AMLODIPINE BESYLATE 5 MG ORAL TABLET 1 tablet by mouth daily 201 01/20/04 AMLODIPINE BESYLATE 14974167400 No Longer Active Joe fulton APRN Active MITIGARE 0.6 MG ORAL CAPSULE 2 capsules at onset of go ut pain, then take one capsule at 1 hour if symptoms persist. COLCHICINE 59 143931821 Active Mitch Urbina DO Active COUMADIN 1 MG ORAL TABLET 2 tabs orally daily with the 5mg tab to equal 7mg daily WARFARIN SODIUM 83723864781 Active Renee Oconnor LPN Active INVOKANA 100 MG ORAL TABLET 1 tablet orally daily CANAGLIFLOZIN 77865085430 Active Mitch Urbina DO Active MECLIZINE HCL 25 MG ORAL TABLET 1 po tid 3 days, then 1/2 ta b tid 3 days MECLIZINE HCL 31590262342 No Longer Active Corey SEGURA Active ALLOPURINOL 300 MG ORAL TABLET Take 1 tablet by mouth daily 2012 ALLOPURINOL 50656099171 No Longer Active Corey SEGURA Active CLONIDINE HCL 0.1 MG ORAL TABLET 1 po bid 7 days, then 1/2 t ab po bid 7 days CLONIDINE HCL 61741603632 No Longer Active Corey SEGURA Active COUMADIN 4 MG ORAL TABLET 1 tablet daily WARFAR IN SODIUM 20491611293 No Longer Active Corey SEGURA Active POLYTRIM 00906-8.1 UNIT/ML-% OPHTHALMIC SOLUTION 1 rui p in affected eye every 3 hours while awake x 7 days POLYMYXIN B-TRIMETHOP RIM 12024538413 No Longer Active Corey SEGURA Active LOSARTAN POTASSIUM-HCTZ 100-12.5 MG ORAL TABLET 1 by m outh daily for high blood pressure LOSARTAN POTASSIUM-HCTZ 02059922301 No Longer A ctive Mitch Urbina DO Active LISINOPRIL-HYDROCHLOROTHIAZIDE 20-12.5 MG ORAL TABLET 1 tab by m outh daily LISINOPRIL-HYDROCHLOROTHIAZIDE 48173938933 No Longer Active Mitch Urbina DO Active LISINOPRIL 20 MG ORAL TABLET 1 tab po at HS LIS INOPRIL 53349274598 No Longer Active Mitch Urbina DO Active COUMADIN 5 MG ORAL TABLET 1 by mouth every other day 2 WARFARIN SODIUM 28311399845 No Longer Active Mitch Urbina DO Active COUMADIN 6 MG ORAL TABLET 1 by mouth every other day 2 WARFARIN SODIUM 02739991383 No Longer Active Mitch Urbina DO Active SIMVASTATIN 40 MG ORAL TABLET 1 tab daily at bedtime SIMVASTATIN 79631537159 Active Maria Rivas RN Active SIMVASTATIN 20 MG ORAL TABLET 1 tab daily at bedtime 2 SIMVASTATIN 17493352375 No Longer Active Mitch Urbina DO Active LOVENOX 100 MG/ML SUBCUTANEOUS SOLUTION One injection twice a da y ENOXAPARIN SODIUM 09027952481 No Longer Active Carmine Yusuf MD Active JANUVIA 50 MG ORAL TABLET Take one by mouth daily SITAGLIPTIN PHOSPHATE 56319468927 Active Renee Oconnor LPN Active JANUVIA 100 MG ORAL TABLET 1/2 by mouth every day 2011 SITAGLIPTIN PHOSPHATE 81998083889 No Longer Active Bijal Segal RN Acti ve METFORMIN HCL 500 MG ORAL TABLET 2 by mouth twice daily METFORMIN HCL 05962412280 No Longer Active Renee Oconnor LPN Active COLCRYS 0.6 MG ORAL TABLET 1 po q 6 hours prn gout pain COLCHICINE 69940942752 No Longer Active Camila Reese Active LISINOPRIL 5 MG ORAL TABLET 1 by mouth every day 11/17 LISINOPRIL 24459431745 No Longer Active Nguyen Perez Active KLOR-CON 20 MEQ ORAL PACKET Take one by mouth daily 20 09/10/08 POTASSIUM CHLORIDE 28741662079 No Longer Active Nguyen Perez Active FUROSEMIDE 40 MG ORAL TABLET 1 by mouth daily F UROSEMIDE 39606317754 No Longer Active Nguyen Perez Active PROVIGIL 100 MG ORAL TABLET Take one by mouth daily 20 08/20/04 MODAFINIL 45103711796 No Longer Active Mitch Urbina DO Active BACTRIM DS 800-160 MG ORAL TABLET 1 tab by mouth twice daily 201 10/19/09 TRIMETHOPRIM-SULFAMETHOXAZOLE 43735115223 No Longer Active Elian Hays MD Active ADULT ASPIRIN LOW STRENGTH 81 MG ORAL TABLET DISINTEGR ATING 1 by mouth every daily ASPIRIN 58872377320 Active Mitch Urbina DO Ac tive BACTRIM DS 800-160 MG ORAL TABLET 1 tab by mouth twice daily 201 10/19/09 BACTRIM DS 800-160 MG ORAL TABLET 467333 TRIMETHOPRIM-SULFAMETHOXAZOLE Inactive PROVIGIL 100 MG ORAL TABLET Take one by mouth daily 20 08/20/04 PROVIGIL 100 MG ORAL TABLET 156951 MODAFINIL Inactive FUROSEMIDE 40 MG ORAL TABLET 1 by mouth daily FUROSEMIDE 40 MG ORAL TABLET 071578 FUROSEMIDE Inactive KLOR-CON 20 MEQ ORAL PACKET Take one by mouth daily 09/10/08 KLOR- CON 20 MEQ ORAL PACKET 4058746 POTASSIUM CHLORIDE Inactive LISINOPRIL 5 MG ORAL TABLET 1 by mouth every day 11/17 LISINOPRIL 5 MG ORAL TABLET 756127 LISINOPRIL Inactive COLCRYS 0.6 MG ORAL TABLET 1 po q 6 hours prn gout pain COLCRYS 0.6 MG ORAL TABLET 494886 COLCHICINE Inactive JANUVIA 100 MG ORAL TABLET 1/2 by mouth every day 2011 JANUVIA 100 MG ORAL TABLET SITAGLIPTIN PHOSPHATE Inactive SIMVASTATIN 20 MG ORAL TABLET 1 tab daily at bedtime 2 SIMVASTATIN 20 MG ORAL TABLET 784143 SIMVASTATIN Inactive COUMADIN 6 MG ORAL TABLET 1 by mouth every other day COUMADIN 6 MG ORAL TABLET 488897 WARFARIN SODIUM Inactive COUMADIN 5 MG ORAL TABLET 1 by mouth every other day COUMADIN 5 MG ORAL TABLET 128974 WARFARIN SODIUM Inactive LISINOPRIL 20 MG ORAL TABLET 1 tab po at HS LISINOPRIL 20 MG ORAL TABLET 683181 LISINOPRIL Inactive LISINOPRIL-HYDROCHLOROTHIAZIDE 20-12.5 MG ORAL TABLET 1 tab by m outh daily LISINOPRIL-HYDROCHLOROTHIAZIDE 20-12.5 MG ORAL TABLET 997629 LISINOPRIL-HYDROCHLOROTHIAZIDE Inactive POLYTRIM 28043-4.1 UNIT/ML-% OPHTHALMIC SOLUTION 1 rui p in affected eye every 3 hours while awake x 7 days POLYTRIM 1000 0-0.1 UNIT/ML-% OPHTHALMIC SOLUTION 531648 POLYMYXIN B-TRIMETHOPRIM Inactive COUMADIN 4 MG ORAL TABLET 1 tablet daily COUMADIN 4 MG ORAL TABLET 717214 WARFARIN SODIUM Inactive CLONIDINE HCL 0.1 MG ORAL TABLET 1 po bid 7 days, then 1/2 t ab po bid 7 days CLONIDINE HCL 0.1 MG ORAL TABLET 742842 CLONIDIN E HCL Inactive ALLOPURINOL 300 MG ORAL TABLET Take 1 tablet by mouth daily 2012 ALLOPURINOL 300 MG ORAL TABLET 476372 ALLOPURINOL I nactive MECLIZINE HCL 25 MG ORAL TABLET 1 po tid 3 days, then 1/2 ta b tid 3 days MECLIZINE HCL 25 MG ORAL TABLET 071201 MECLIZINE HCL Inactive AMLODIPINE BESYLATE 5 MG ORAL TABLET 1 tablet by mouth daily 201 01/20/04 AMLODIPINE BESYLATE 5 MG ORAL TABLET 589306 AMLODIPINE BESYLATE Inactive KEFLEX 500 MG ORAL CAPSULE 1 po qid K EFLEX 500 MG ORAL CAPSULE 585410 CEPHALEXIN Inactive COLCRYS 0.6 MG ORAL TABLET 1 tab qid prn gout COLCRYS 0.6 MG ORAL TABLET 881899 COLCHICINE Inactive FAMOTIDINE 20 MG ORAL TABLET by mouth twice a day 2017 FAMOTIDINE 20 MG ORAL TABLET 951847 FAMOTIDINE Inactive GLIMEPIRIDE 2 MG ORAL TABLET 1 po BID GLIMEPIRIDE 2 MG ORAL TABLET 005716 GLIMEPIRIDE Inactive LOVENOX 100 MG/ML SUBCUTANEOUS SOLUTION One injection twice a da y LOVENOX 100 MG/ML SUBCUTANEOUS SOLUTION 783025 ENOXAPAR IN SODIUM Inactive PREDNISONE 20 MG ORAL TABLET 2 tabs daily for 3 days 1 tab d aily for 3 days PREDNISONE 20 MG ORAL TABLET 501096 PREDNISONE Inactive Advance Directives Directive Description Start [...] mg/dL Encounters Code Encounter Date Provider Facility CPT-29125 [id number] Vst-Est Level IV 16:21:22 CDT Bru ce W [facility] CPT-10779 Level 3 Est. Patient 15:18:36 CDT Becky anderson APRN [facility] CPT-20168 [id number] Vst-Est Level IV 10:06:35 CDT Bru ce W [facility] CPT-67038 [id number] Vst-Est Level IV 10:52:00 SHEET FOLDER Bru ce W [facility] CPT-44020 Level 3 Est. Patient 18:25:53 CDT Mitch Castellano [facility] CPT-63829 Level 3 Est. Patient 19:43:34 CDT Mitch W Nona luis [facility] CPT-93882 Level 4 Est. Patient 09:30:18 CDT Mitch luis [facility] CPT-56804 Level 3 Est. Patient 15:10:14 CDT Joe Gomez [facility]-33273 Level 3 Est. Patient 15:03:46 CDT Devonjustincarlitos Gomez [facility]-21953 Level 3 Est. Patient 14:21:06 CDT Mitch luis [facility] CPT-60429 Level 3 Est. Patient 14:52:06 CDT Joe Jason [facility]-15341 Level 3 Est. Patient 09:34:30 SHEET FOLDER Mitch luis [facility] CPT-50338 Level 3 Est. Patient 09:37:15 CDT Mitch luis [facility]-03560 Level 3 Est. Patient 17:01:00 SHEET FOLDER Mitch luis [facility] CPT-96808 Level 3 Est. Patient 13:53:19 SHEET FOLDER Mitch luis [facility] CPT-74511 Level 3 Est. Patient 19:19:37 SHEET FOLDER Mitch luis [facility] CPT-46947 Level 3 Est. Patient 13:25:53 SHEET FOLDER Tavo toure MD [facility] CPT-56786 Level 3 Est. Patient 18:17:28 CDT Mitch luis [facility] CPT-66021 Level 3 Est. Patient 15:22:57 CDT Mitch luis [facility] CPT-07632 Level 3 Est. Patient 18:21:50 CDT Mitch luis [facility] CPT-76608 Level 3 Est. Patient 18:20:38 CDT Mitch luis [facility] CPT-65409 Level 3 Est. Patient 15:37:55 CDT Mitch luis [facility] CPT-37767 Level 2 Est. Patient 15:54:44 CDT Carmine benton MD [facility] CPT-39463 Level 3 Est. Patient 21:46:01 SHEET FOLDER Mitch luis [facility] CPT-75632 Level 3 Est. Patient 22:15:50 CDT Mitch luis [facility] CPT-53304 Level 3 Est. Patient 10:48:15 CDT Mitch luis [facility] CPT-05368 Level 3 Est. Patient 23:20:57 CDT Tavo toure MD [facility] CPT-20767 Level 3 Est. Patient 16:26:13 CDT Mitch luis [facility] Procedures Code Procedure Name Date Entry Date Standard Desc ription CPT-06635 Venipuncture Draw Fee 08:26:21 CDT CPT-82654 Venous Duplex Left Leg XRAY USE ONLY 10:43:10 CDT CPT-56319 Venipuncture Draw Fee 17:04:55 CDT CPT-45515 Venipuncture Draw Fee 17:20:50 CDT CPT-25398 Venipuncture Draw Fee 18:00:48 CDT CPT-94017 Venipuncture Draw Fee 14:56:20 CDT CPT-JTINJ Asp/Joint Injection 18:47:02 CDT CPT-17710 Venipuncture Draw Fee 09:26:17 CDT CPT-48296 PT/INR - LAB USE ONLY 13:32:49 SHEET FOLDER CPT-65686 Venipuncture Draw Fee 13:32:49 SHEET FOLDER CPT-53648 PT/INR - LAB USE ONLY 10:34:49 SHEET FOLDER CPT-47705 Venipuncture Draw Fee 10:34:48 SHEET FOLDER CPT-72597 PT/INR - LAB USE ONLY 09:22:03 SHEET FOLDER CPT-59579 Venipuncture Draw Fee 09:22:02 SHEET FOLDER CPT-43157 Hemoccult IFOBT - LAB USE ONLY 10:27:22 CDT CPT-72970 Venipuncture Draw Fee 08:27:08 CDT CPT-65761 Liver Profile - LAB USE ONLY 08:27:07 CDT 2 CPT-30993 Microalbumin - LAB USE ONLY 08:27:07 CDT 20 25/05/09 CPT-67953 PT/INR - LAB USE ONLY 08:27:07 CDT CPT-61460 HGBA1C - LAB USE ONLY 08:27:07 CDT CPT-03739 CBC - LAB USE ONLY 08:27:07 CDT CPT-03448 Venipuncture Draw Fee 11:09:14 CDT CPT-03728 Venipuncture Draw Fee 08:32:21 SHEET FOLDER CPT-12579 Venipuncture Draw Fee 09:38:56 SHEET FOLDER CPT-32972 No Charge Offi Visit 21:36:07 CDT 1 CPT-98787 Venipuncture Draw Fee 10:13:28 SHEET FOLDER CPT-47828 Venipuncture Draw Fee 08:31:11 CDT CPT-31025 Aspir/Inject Med Joint 18:17:28 CDT CPT-25570 Venipuncture Draw Fee 10:13:30 CDT CPT-08149 Venipuncture Draw Fee 08:31:43 SHEET FOLDER CPT-JTINJ Joint Injection 18:34:50 CDT CPT-49676 Knee 3V 12:25:09 CDT CPT-69296 Venipuncture Draw Fee 12:15:57 CDT CPT-060 Medical Surveillance Exam 21:31:43 CDT 2011 CPT-53062 Venipuncture Draw Fee 08:32:05 SHEET FOLDER CPT-OV Office Visit 18:19:06 CDT
--- OUTSIDE RECORDS SUMMARY | 2020-01-18 13:52 | XMS REPORT | Clinical Summary ---
Author Author Admin, Mitch Leon Organization [facility] [employer] Address Unknown Phone Unavailable Allergies, Adverse [...] TAKE 1 TABLET DAILY W ARFARIN SODIUM 05790507128 Active Allison Anthony APRN-C Active KEFLEX 500 MG ORAL CAPSULE 1 capsule by mouth three times da rocky x10 days CEPHALEXIN 53780900602 Active Maria Rivas RN Active METOPROLOL TARTRATE TABS 50MG TAKE 1 TABLET TWICE A DAY ([facility] WORK) METOPROLOL TARTRATE 30787470253 Active Maria Briones Active DOXAZOSIN MESYLATE 2 MG ORAL TABLET 1 po q day for pr ostate and blood pressure DOXAZOSIN MESYLATE 22487406522 Active Mitch Urbina DO Active LOSARTAN TABS 100MG TAKE 1 TABLET DAILY FOR BLOOD PRESSURE LOSARTAN POTASSIUM 33390504625 Active Maria Rivas RN Active FLUTICASONE PROPIONATE 50 MCG/ACT NASAL SUSPENSION 1 s pray each nostril twice daily for 1 week, then once daily FLUTICASONE MO OPIONATE 64379504882 Active Becky Mohamud APRN Active PREDNISONE 20 MG ORAL TABLET 2 tabs daily for 3 days 1 tab d aily for 3 days PREDNISONE 67769778567 No Longer Active Becky Mohamud APRN Active MINOXIDIL 2.5 MG ORAL TABLET 1 tablet twice daily for high b lood pressure MINOXIDIL 62444999490 Active Mitch W Carlitos DO Ac tive METFORMIN HCL ER 500 MG ORAL TABLET EXTENDED RELEASE 2 4 HOUR 2 tablets by mouth twice daily METFORMIN HCL 59275492071 Active Mitch Urbina DO Active GLIMEPIRIDE 4 MG ORAL TABLET 1 tablet by mouth twice daily f or diabetes GLIMEPIRIDE 35476103112 Active Mitch Urbina DO Active GLIMEPIRIDE 2 MG ORAL TABLET 1 po BID GLIMEPI RIDE 69827253545 No Longer Active Mitch Urbina DO Active AMLODIPINE BESYLATE 5 MG ORAL TABLET 1 tablet by mouth daily AMLODIPINE BESYLATE 48604751281 Active Mitch Urbina DO Active PROVIGIL 200 MG ORAL TABLET 1/2 tab po q day MODA FINIL 54420079184 Active Renee Oconnor LPN Active FAMOTIDINE 20 MG ORAL TABLET by mouth twice a day 2017 FAMOTIDINE 35503781251 No Longer Active Mitch Ambrose Carlitos DO Active COLCRYS 0.6 MG ORAL TABLET 1 tab qid prn gout C OLCHICINE 74776066929 No Longer Active Mitch Arnol Urbina DO Active KEFLEX 500 MG ORAL CAPSULE 1 po qid CEPHALEXI N 12379394143 No Longer Active Mitch Arnol Urbina DO Active AMLODIPINE BESYLATE 5 MG ORAL TABLET 1 tablet by mouth daily 201 01/20/04 AMLODIPINE BESYLATE 78615727761 No Longer Active Joe fulton APRN Active MITIGARE 0.6 MG ORAL CAPSULE 2 capsules at onset of go ut pain, then take one capsule at 1 hour if symptoms persist. COLCHICINE 59 572784534 Active Mitch Urbina DO Active COUMADIN 1 MG ORAL TABLET 2 tabs orally daily with the 5mg tab to equal 7mg daily WARFARIN SODIUM 71945967279 Active Renee Oconnor LPN Active INVOKANA 100 MG ORAL TABLET 1 tablet orally daily CANAGLIFLOZIN 01824752364 Active Mitch Urbina DO Active MECLIZINE HCL 25 MG ORAL TABLET 1 po tid 3 days, then 1/2 ta b tid 3 days MECLIZINE HCL 08577228807 No Longer Active Corey SEGURA Active ALLOPURINOL 300 MG ORAL TABLET Take 1 tablet by mouth daily 2012 ALLOPURINOL 98742774714 No Longer Active Corey SEGURA Active CLONIDINE HCL 0.1 MG ORAL TABLET 1 po bid 7 days, then 1/2 t ab po bid 7 days CLONIDINE HCL 54749364655 No Longer Active Corey SEGURA Active COUMADIN 4 MG ORAL TABLET 1 tablet daily WARFAR IN SODIUM 72839563614 No Longer Active Corey SEGURA Active POLYTRIM 62315-6.1 UNIT/ML-% OPHTHALMIC SOLUTION 1 rui p in affected eye every 3 hours while awake x 7 days POLYMYXIN B-TRIMETHOP RIM 02397893283 No Longer Active Corey SEGURA Active LOSARTAN POTASSIUM-HCTZ 100-12.5 MG ORAL TABLET 1 by m outh daily for high blood pressure LOSARTAN POTASSIUM-HCTZ 92755850147 No Longer A ctive Mitch Urbina DO Active LISINOPRIL-HYDROCHLOROTHIAZIDE 20-12.5 MG ORAL TABLET 1 tab by m outh daily LISINOPRIL-HYDROCHLOROTHIAZIDE 28592648678 No Longer Active Mitch Urbina DO Active LISINOPRIL 20 MG ORAL TABLET 1 tab po at HS LIS INOPRIL 64697158570 No Longer Active Mitch Urbina DO Active COUMADIN 5 MG ORAL TABLET 1 by mouth every other day 2 WARFARIN SODIUM 91853234485 No Longer Active Mitch Urbina DO Active COUMADIN 6 MG ORAL TABLET 1 by mouth every other day 2 WARFARIN SODIUM 44704235468 No Longer Active Mitch Urbina DO Active SIMVASTATIN 40 MG ORAL TABLET 1 tab daily at bedtime SIMVASTATIN 17007856507 Active Maria Rivas RN Active SIMVASTATIN 20 MG ORAL TABLET 1 tab daily at bedtime 2 SIMVASTATIN 14356522145 No Longer Active Mitch Urbina DO Active LOVENOX 100 MG/ML SUBCUTANEOUS SOLUTION One injection twice a da y ENOXAPARIN SODIUM 69989490573 No Longer Active Carmine Yusuf MD Active JANUVIA 50 MG ORAL TABLET Take one by mouth daily SITAGLIPTIN PHOSPHATE 00023686619 Active Renee Oconnor LPN Active JANUVIA 100 MG ORAL TABLET 1/2 by mouth every day 2011 SITAGLIPTIN PHOSPHATE 55849042580 No Longer Active Bijal Segal RN Acti ve METFORMIN HCL 500 MG ORAL TABLET 2 by mouth twice daily METFORMIN HCL 13872169225 No Longer Active Renee Oconnor LPN Active COLCRYS 0.6 MG ORAL TABLET 1 po q 6 hours prn gout pain COLCHICINE 96695418399 No Longer Active Camila Reese Active LISINOPRIL 5 MG ORAL TABLET 1 by mouth every day 11/17 LISINOPRIL 94016614949 No Longer Active Nguyen Perez Active KLOR-CON 20 MEQ ORAL PACKET Take one by mouth daily 20 09/10/08 POTASSIUM CHLORIDE 32601177716 No Longer Active Nguyen Perez Active FUROSEMIDE 40 MG ORAL TABLET 1 by mouth daily F UROSEMIDE 56445829029 No Longer Active Nguyen Perez Active PROVIGIL 100 MG ORAL TABLET Take one by mouth daily 20 08/20/04 MODAFINIL 76782860368 No Longer Active Mitch Urbina DO Active BACTRIM DS 800-160 MG ORAL TABLET 1 tab by mouth twice daily 201 10/19/09 TRIMETHOPRIM-SULFAMETHOXAZOLE 21663814319 No Longer Active Elian Hays MD Active ADULT ASPIRIN LOW STRENGTH 81 MG ORAL TABLET DISINTEGR ATING 1 by mouth every daily ASPIRIN 72904738345 Active Mitch Urbina DO Ac tive BACTRIM DS 800-160 MG ORAL TABLET 1 tab by mouth twice daily 201 10/19/09 BACTRIM DS 800-160 MG ORAL TABLET 421201 TRIMETHOPRIM-SULFAMETHOXAZOLE Inactive PROVIGIL 100 MG ORAL TABLET Take one by mouth daily 20 08/20/04 PROVIGIL 100 MG ORAL TABLET 589128 MODAFINIL Inactive FUROSEMIDE 40 MG ORAL TABLET 1 by mouth daily FUROSEMIDE 40 MG ORAL TABLET 460376 FUROSEMIDE Inactive KLOR-CON 20 MEQ ORAL PACKET Take one by mouth daily 09/10/08 KLOR- CON 20 MEQ ORAL PACKET 8276151 POTASSIUM CHLORIDE Inactive LISINOPRIL 5 MG ORAL TABLET 1 by mouth every day 11/17 LISINOPRIL 5 MG ORAL TABLET 804861 LISINOPRIL Inactive COLCRYS 0.6 MG ORAL TABLET 1 po q 6 hours prn gout pain COLCRYS 0.6 MG ORAL TABLET 869258 COLCHICINE Inactive JANUVIA 100 MG ORAL TABLET 1/2 by mouth every day 2011 JANUVIA 100 MG ORAL TABLET SITAGLIPTIN PHOSPHATE Inactive SIMVASTATIN 20 MG ORAL TABLET 1 tab daily at bedtime 2 SIMVASTATIN 20 MG ORAL TABLET 925071 SIMVASTATIN Inactive COUMADIN 6 MG ORAL TABLET 1 by mouth every other day COUMADIN 6 MG ORAL TABLET 672894 WARFARIN SODIUM Inactive COUMADIN 5 MG ORAL TABLET 1 by mouth every other day COUMADIN 5 MG ORAL TABLET 952393 WARFARIN SODIUM Inactive LISINOPRIL 20 MG ORAL TABLET 1 tab po at HS LISINOPRIL 20 MG ORAL TABLET 276096 LISINOPRIL Inactive LISINOPRIL-HYDROCHLOROTHIAZIDE 20-12.5 MG ORAL TABLET 1 tab by m outh daily LISINOPRIL-HYDROCHLOROTHIAZIDE 20-12.5 MG ORAL TABLET 825668 LISINOPRIL-HYDROCHLOROTHIAZIDE Inactive POLYTRIM 50576-8.1 UNIT/ML-% OPHTHALMIC SOLUTION 1 rui p in affected eye every 3 hours while awake x 7 days POLYTRIM 1000 0-0.1 UNIT/ML-% OPHTHALMIC SOLUTION 748154 POLYMYXIN B-TRIMETHOPRIM Inactive COUMADIN 4 MG ORAL TABLET 1 tablet daily COUMADIN 4 MG ORAL TABLET 163807 WARFARIN SODIUM Inactive CLONIDINE HCL 0.1 MG ORAL TABLET 1 po bid 7 days, then 1/2 t ab po bid 7 days CLONIDINE HCL 0.1 MG ORAL TABLET 551260 CLONIDIN E HCL Inactive ALLOPURINOL 300 MG ORAL TABLET Take 1 tablet by mouth daily 2012 ALLOPURINOL 300 MG ORAL TABLET 893489 ALLOPURINOL I nactive MECLIZINE HCL 25 MG ORAL TABLET 1 po tid 3 days, then 1/2 ta b tid 3 days MECLIZINE HCL 25 MG ORAL TABLET 684457 MECLIZINE HCL Inactive AMLODIPINE BESYLATE 5 MG ORAL TABLET 1 tablet by mouth daily 201 01/20/04 AMLODIPINE BESYLATE 5 MG ORAL TABLET 644521 AMLODIPINE BESYLATE Inactive KEFLEX 500 MG ORAL CAPSULE 1 po qid K EFLEX 500 MG ORAL CAPSULE 740409 CEPHALEXIN Inactive COLCRYS 0.6 MG ORAL TABLET 1 tab qid prn gout COLCRYS 0.6 MG ORAL TABLET 484838 COLCHICINE Inactive FAMOTIDINE 20 MG ORAL TABLET by mouth twice a day 2017 FAMOTIDINE 20 MG ORAL TABLET 022265 FAMOTIDINE Inactive GLIMEPIRIDE 2 MG ORAL TABLET 1 po BID GLIMEPIRIDE 2 MG ORAL TABLET 046033 GLIMEPIRIDE Inactive LOVENOX 100 MG/ML SUBCUTANEOUS SOLUTION One injection twice a da y LOVENOX 100 MG/ML SUBCUTANEOUS SOLUTION 129268 ENOXAPAR IN SODIUM Inactive PREDNISONE 20 MG ORAL TABLET 2 tabs daily for 3 days 1 tab d aily for 3 days PREDNISONE 20 MG ORAL TABLET 656012 PREDNISONE Inactive Advance Directives Directive Description Start [...] Value Unit Range Description Lab Report: CBC W/DIFF, Comp. Metabolic Panel - Chemistry sodium, serum 140 mmol/L 641-302 7592/11/01 carbon dioxide, venous blood 28.6 mmol/L 21.0-32 [...] mg/dL Encounters Code Encounter Date Provider Facility CPT-34029 [id number] Vst-Est Level IV 16:21:22 CDT Stephy Ambrose [facility] CPT-00416 Level 3 Est. Patient 15:18:36 CDT Becky anderson APRN [facility] CPT-82948 [id number] Vst-Est Level IV 10:06:35 CDT Bru robinson Ambrose Carlitos [facility]-20571 [id number] Vst-Est Level IV 10:52:00 [employer] Stephy Urbina [facility]-61475 Level 3 Est. Patient 18:25:53 CDT Mitch Arnol luis [facility] [address] CPT-94194 Level 3 Est. Patient 19:43:34 CDT Mitch Castellano janelle [facility] [address] CPT-98867 Level 4 Est. Patient 09:30:18 CDT Mitch Ambrose Nona luis [facility] [address] CPT-76752 Level 3 Est. Patient 15:10:14 CDT Joe Gomez courtangela [facility]-09937 Level 3 Est. Patient 15:03:46 CDT Joe Jason kamara [facility] CPT-57726 Level 3 Est. Patient 14:21:06 CDT Mitch Ambrose Nona luis [facility] [address] CPT-20030 Level 3 Est. Patient 14:52:06 CDT Joe Jason kamara [facility] CPT-39709 Level 3 Est. Patient 09:34:30 [employer] Mitch luis [facility] [address] CPT-09233 Level 3 Est. Patient 09:37:15 CDT Mitch Ambrose Nona luis [facility] [address] CPT-89563 Level 3 Est. Patient 17:01:00 [employer] Mitch luis [facility] CPT-02524 Level 3 Est. Patient 13:53:19 [employer] Mitch luis [facility] CPT-86277 Level 3 Est. Patient 19:19:37 [employer] Mitch luis [facility] CPT-76786 Level 3 Est. Patient 13:25:53 [employer] Tavo toure MD [facility] CPT-70382 Level 3 Est. Patient 18:17:28 CDT Mitch luis [facility] CPT-70265 Level 3 Est. Patient 15:22:57 CDT Mitch luis [facility] [address] CPT-25881 Level 3 Est. Patient 18:21:50 CDT Mitch luis [facility] [address] CPT-00593 Level 3 Est. Patient 18:20:38 CDT Mitch luis [facility] [address] CPT-60071 Level 3 Est. Patient 15:37:55 CDT Mitch luis [facility] CPT-05578 Level 2 Est. Patient 15:54:44 CDT Carmine benton MD [facility] CPT-56515 Level 3 Est. Patient 21:46:01 [employer] Mitch luis [facility] CPT-07792 Level 3 Est. Patient 22:15:50 CDT Mitch luis [facility] CPT-00925 Level 3 Est. Patient 10:48:15 CDT Mitch luis [facility] CPT-98551 Level 3 Est. Patient 23:20:57 CDT Tavo toure MD [facility]-76766 Level 3 Est. Patient 16:26:13 CDT Mitch luis [facility] Procedures Code Procedure Name Date Entry Date Standard Desc ription CPT-84922 Venipuncture Draw Fee 08:26:21 CDT CPT-98885 Venous Duplex Left Leg XRAY USE ONLY 10:43:10 CDT CPT-66793 Venipuncture Draw Fee 17:04:55 CDT CPT-53658 Venipuncture Draw Fee 17:20:50 CDT CPT-66685 Venipuncture Draw Fee 18:00:48 CDT CPT-75458 Venipuncture Draw Fee 14:56:20 CDT CPT-JTINJ Asp/Joint Injection 18:47:02 CDT CPT-53558 Venipuncture Draw Fee 09:26:17 CDT CPT-06352 PT/INR - LAB USE ONLY 13:32:49 [employer] CPT-77453 Venipuncture Draw Fee 13:32:49 [employer] CPT-35451 PT/INR - LAB USE ONLY 10:34:49 [employer] CPT-42867 Venipuncture Draw Fee 10:34:48 [employer] CPT-56195 PT/INR - LAB USE ONLY 09:22:03 [employer] CPT-88834 Venipuncture Draw Fee 09:22:02 [employer] CPT-51092 Hemoccult IFOBT - LAB USE ONLY 10:27:22 CDT CPT-26424 Venipuncture Draw Fee 08:27:08 CDT CPT-28169 Liver Profile - LAB USE ONLY 08:27:07 CDT 2 CPT-91143 Microalbumin - LAB USE ONLY 08:27:07 CDT 20 25/05/09 CPT-17683 PT/INR - LAB USE ONLY 08:27:07 CDT CPT-71313 HGBA1C - LAB USE ONLY 08:27:07 CDT CPT-74703 CBC - LAB USE ONLY 08:27:07 CDT CPT-90571 Venipuncture Draw Fee 11:09:14 CDT CPT-22095 Venipuncture Draw Fee 08:32:21 [employer] CPT-39722 Venipuncture Draw Fee 09:38:56 [employer] CPT-75756 No Charge Offi Visit 21:36:07 CDT 1 CPT-62614 Venipuncture Draw Fee 10:13:28 [employer] CPT-27226 Venipuncture Draw Fee 08:31:11 CDT CPT-69082 Aspir/Inject Med Joint 18:17:28 CDT CPT-16966 Venipuncture Draw Fee 10:13:30 CDT CPT-04173 Venipuncture Draw Fee 08:31:43 [employer] CPT-JTINJ Joint Injection 18:34:50 CDT CPT-71270 Knee 3V 12:25:09 CDT CPT-03820 Venipuncture Draw Fee 12:15:57 CDT CPT-060 Medical Surveillance Exam 21:31:43 CDT 2011 CPT-44506 Venipuncture Draw Fee 08:32:05 [employer] CPT-OV Office Visit 18:19:06 CDT
[2020-01-18] MEDS ORDERED: LACTATED RINGERS 1,000 ML IV SCH (13:53)
--- NOTE | 2020-01-18 13:53 | Progress Note-Post Operative ---
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
--- OUTSIDE RECORDS SUMMARY | 2020-01-18 13:53 | XMS REPORT | Clinical Summary ---
Author Author Admin, Mitch Leon Organization [facility] Address Unknown Phone Unavailable Allergies, Adverse Reactions, [...] Coronary atherosclerosis of unspecified type of vessel, [place] or graft EDEMA 782.3 Resolved Mitch Urbina [...] Urbina DO Cough, chronic ICD-786.2 Inactive Mitch Tjeeda O Sebaceous cyst, infected ICD-706.2 Inactive Mitch Urbina DO Cellulitis ICD-682.9 Inactive Mitch Urbina DO 10/23 Influenza Vaccination for Prophylaxis ICD-V04.81 9 Inactive Buhmi Robles Medication List Medication Instructions Start Date Stop Date Generic Name NDC Status Provider Patient Instruction WARFARIN TABS 1MG TAKE 2 TABLETS (2 MG) DAILY WITH THE 5 MG TABLET TO EQUAL 7 MG DAILY WARFARIN SODIUM 91053720392 Active Maria Briones Active WARFARIN SODIUM 5 MG TABS TAKE 1 TABLET DAILY W ARFARIN SODIUM 16403292727 Active Allison PERERA Active KEFLEX 500 MG ORAL CAPSULE 1 capsule by mouth three times da rocky x10 days CEPHALEXIN 07890856837 Active Maria Rivas RN Active METOPROLOL TARTRATE TABS 50MG TAKE 1 TABLET TWICE A DAY ([facility] WORK) METOPROLOL TARTRATE 47372317316 Active Maria Briones Active DOXAZOSIN MESYLATE 2 MG ORAL TABLET 1 po q day for pr ostate and blood pressure DOXAZOSIN MESYLATE 73353315000 Active Mitch Urbina DO Active LOSARTAN TABS 100MG TAKE 1 TABLET DAILY FOR BLOOD PRESSURE LOSARTAN POTASSIUM 89930055401 Active Maria Rivas RN Active FLUTICASONE PROPIONATE 50 MCG/ACT NASAL SUSPENSION 1 s pray each nostril twice daily for 1 week, then once daily FLUTICASONE IN OPIONATE 92985540778 Active Becky Mohamud APRN Active PREDNISONE 20 MG ORAL TABLET 2 tabs daily for 3 days 1 tab d aily for 3 days PREDNISONE 87151962834 No Longer Active Becky Mohamud APRN Active MINOXIDIL 2.5 MG ORAL TABLET 1 tablet twice daily for high b lood pressure MINOXIDIL 85753661474 Active Mitch Urbina DO Ac tive METFORMIN HCL ER 500 MG ORAL TABLET EXTENDED RELEASE 2 4 HOUR 2 tablets by mouth twice daily METFORMIN HCL 59677952761 Active Mitch Urbina DO Active GLIMEPIRIDE 4 MG ORAL TABLET 1 tablet by mouth twice daily f or diabetes GLIMEPIRIDE 55840320741 Active Mitch Urbina DO Active GLIMEPIRIDE 2 MG ORAL TABLET 1 po BID GLIMEPI RIDE 00863790015 No Longer Active Mitch Urbina DO Active AMLODIPINE BESYLATE 5 MG ORAL TABLET 1 tablet by mouth daily AMLODIPINE BESYLATE 63236740675 Active Mitch Urbina DO Active PROVIGIL 200 MG ORAL TABLET 1/2 tab po q day MODA FINIL 10836276077 Active Maria Rivas RN Active FAMOTIDINE 20 MG ORAL TABLET by mouth twice a day 2017 FAMOTIDINE 74932455354 No Longer Active Mitch Urbina DO Active COLCRYS 0.6 MG ORAL TABLET 1 tab qid prn gout C OLCHICINE 13490137114 No Longer Active Mitch Urbina DO Active KEFLEX 500 MG ORAL CAPSULE 1 po qid CEPHALEXI N 29050702209 No Longer Active Mitch Urbina DO Active AMLODIPINE BESYLATE 5 MG ORAL TABLET 1 tablet by mouth daily 201 01/20/04 AMLODIPINE BESYLATE 34211009733 No Longer Active Joe fulton APRN Active MITIGARE 0.6 MG ORAL CAPSULE 2 capsules at onset of go ut pain, then take one capsule at 1 hour if symptoms persist. COLCHICINE 59 422344055 Active Mitch Urbina DO Active INVOKANA 100 MG ORAL TABLET 1 tablet orally daily CANAGLIFLOZIN 50201727963 Active Mitch Urbina DO Active MECLIZINE HCL 25 MG ORAL TABLET 1 po tid 3 days, then 1/2 ta b tid 3 days MECLIZINE HCL 40743357976 No Longer Active Corey SEGURA Active ALLOPURINOL 300 MG ORAL TABLET Take 1 tablet by mouth daily 2012 ALLOPURINOL 92008943777 No Longer Active Corey SEGURA Active CLONIDINE HCL 0.1 MG ORAL TABLET 1 po bid 7 days, then 1/2 t ab po bid 7 days CLONIDINE HCL 32304273290 No Longer Active Corey SEGURA Active COUMADIN 4 MG ORAL TABLET 1 tablet daily WARFAR IN SODIUM 93875243584 No Longer Active Corey SEGURA Active POLYTRIM 66348-1.1 UNIT/ML-% OPHTHALMIC SOLUTION 1 rui p in affected eye every 3 hours while awake x 7 days POLYMYXIN B-TRIMETHOP RIM 81816563084 No Longer Active Corey SEGURA Active LOSARTAN POTASSIUM-HCTZ 100-12.5 MG ORAL TABLET 1 by m outh daily for high blood pressure LOSARTAN POTASSIUM-HCTZ 75868082086 No Longer A ctive Mitch Urbina DO Active LISINOPRIL-HYDROCHLOROTHIAZIDE 20-12.5 MG ORAL TABLET 1 tab by m outh daily LISINOPRIL-HYDROCHLOROTHIAZIDE 86626578529 No Longer Active Mitch Urbina DO Active LISINOPRIL 20 MG ORAL TABLET 1 tab po at HS LIS INOPRIL 71673594382 No Longer Active Mitch Urbina DO Active COUMADIN 5 MG ORAL TABLET 1 by mouth every other day 2 WARFARIN SODIUM 52224445399 No Longer Active Mitch Urbina DO Active COUMADIN 6 MG ORAL TABLET 1 by mouth every other day 2 WARFARIN SODIUM 19882648382 No Longer Active Mitch Urbina DO Active SIMVASTATIN 40 MG ORAL TABLET 1 tab daily at bedtime SIMVASTATIN 29608215746 Active Maria Rivas RN Active SIMVASTATIN 20 MG ORAL TABLET 1 tab daily at bedtime 2 SIMVASTATIN 66913781980 No Longer Active Mitch Urbina DO Active LOVENOX 100 MG/ML SUBCUTANEOUS SOLUTION One injection twice a da y ENOXAPARIN SODIUM 82759086909 No Longer Active Carmine Yusuf MD Active JANUVIA 50 MG ORAL TABLET Take one by mouth daily SITAGLIPTIN PHOSPHATE 61533944990 Active Renee Oconnoreder DE LA ROSA Active JANUVIA 100 MG ORAL TABLET 1/2 by mouth every day 2011 SITAGLIPTIN PHOSPHATE 39454351589 No Longer Active Bijal Segal RN Acti ve METFORMIN HCL 500 MG ORAL TABLET 2 by mouth twice daily METFORMIN HCL 50785823214 No Longer Active Renee Oconnor LPN Active COLCRYS 0.6 MG ORAL TABLET 1 po q 6 hours prn gout pain COLCHICINE 42362813592 No Longer Active Camila Reese Active LISINOPRIL 5 MG ORAL TABLET 1 by mouth every day 11/17 LISINOPRIL 14382903506 No Longer Active Nguyen Perez Active KLOR-CON 20 MEQ ORAL PACKET Take one by mouth daily 20 09/10/08 POTASSIUM CHLORIDE 16240546688 No Longer Active Nguyen Perez Active FUROSEMIDE 40 MG ORAL TABLET 1 by mouth daily F UROSEMIDE 14227338555 No Longer Active Nguyen Perez Active PROVIGIL 100 MG ORAL TABLET Take one by mouth daily 08/20/04 MODAFINIL 26171847762 No Longer Active Mitch Urbina DO Active BACTRIM DS 800-160 MG ORAL TABLET 1 tab by mouth twice daily 201 10/19/09 TRIMETHOPRIM-SULFAMETHOXAZOLE 73850191307 No Longer Active Elian Hays MD Active ADULT ASPIRIN LOW STRENGTH 81 MG ORAL TABLET DISINTEGR ATING 1 by mouth every daily ASPIRIN 59391800537 Active Mitch Urbina DO Ac tive BACTRIM DS 800-160 MG ORAL TABLET 1 tab by mouth twice daily 201 10/19/09 BACTRIM DS 800-160 MG ORAL TABLET 620926 TRIMETHOPRIM-SULFAMETHOXAZOLE Inactive PROVIGIL 100 MG ORAL TABLET Take one by mouth daily 20 08/20/04 PROVIGIL 100 MG ORAL TABLET 169353 MODAFINIL Inactive FUROSEMIDE 40 MG ORAL TABLET 1 by mouth daily FUROSEMIDE 40 MG ORAL TABLET 309756 FUROSEMIDE Inactive KLOR-CON 20 MEQ ORAL PACKET Take one by mouth daily 09/10/08 KLOR- CON 20 MEQ ORAL PACKET 3421985 POTASSIUM CHLORIDE Inactive LISINOPRIL 5 MG ORAL TABLET 1 by mouth every day 11/17 LISINOPRIL 5 MG ORAL TABLET 210875 LISINOPRIL Inactive COLCRYS 0.6 MG ORAL TABLET 1 po q 6 hours prn gout pain COLCRYS 0.6 MG ORAL TABLET 090697 COLCHICINE Inactive JANUVIA 100 MG ORAL TABLET 1/2 by mouth every day 2011 JANUVIA 100 MG ORAL TABLET SITAGLIPTIN PHOSPHATE Inactive SIMVASTATIN 20 MG ORAL TABLET 1 tab daily at bedtime 2 SIMVASTATIN 20 MG ORAL TABLET 111322 SIMVASTATIN Inactive COUMADIN 6 MG ORAL TABLET 1 by mouth every other day COUMADIN 6 MG ORAL TABLET 127988 WARFARIN SODIUM Inactive COUMADIN 5 MG ORAL TABLET 1 by mouth every other day 2 COUMADIN 5 MG ORAL TABLET 788856 WARFARIN SODIUM Inactive LISINOPRIL 20 MG ORAL TABLET 1 tab po at HS LISINOPRIL 20 MG ORAL TABLET 282706 LISINOPRIL Inactive LISINOPRIL-HYDROCHLOROTHIAZIDE 20-12.5 MG ORAL TABLET 1 tab by m outh daily LISINOPRIL-HYDROCHLOROTHIAZIDE 20-12.5 MG ORAL TABLET 845144 LISINOPRIL-HYDROCHLOROTHIAZIDE Inactive POLYTRIM 69115-3.1 UNIT/ML-% OPHTHALMIC SOLUTION 1 rui p in affected eye every 3 hours while awake x 7 days POLYTRIM 1000 0-0.1 UNIT/ML-% OPHTHALMIC SOLUTION 996076 POLYMYXIN B-TRIMETHOPRIM Inactive COUMADIN 4 MG ORAL TABLET 1 tablet daily COUMADIN 4 MG ORAL TABLET 577955 WARFARIN SODIUM Inactive CLONIDINE HCL 0.1 MG ORAL TABLET 1 po bid 7 days, then 1/2 t ab po bid 7 days CLONIDINE HCL 0.1 MG ORAL TABLET 170615 CLONIDIN E HCL Inactive ALLOPURINOL 300 MG ORAL TABLET Take 1 tablet by mouth daily 2012 ALLOPURINOL 300 MG ORAL TABLET 938507 ALLOPURINOL I nactive MECLIZINE HCL 25 MG ORAL TABLET 1 po tid 3 days, then 1/2 ta b tid 3 days MECLIZINE HCL 25 MG ORAL TABLET 233440 MECLIZINE HCL Inactive AMLODIPINE BESYLATE 5 MG ORAL TABLET 1 tablet by mouth daily 201 01/20/04 AMLODIPINE BESYLATE 5 MG ORAL TABLET 814755 AMLODIPINE BESYLATE Inactive KEFLEX 500 MG ORAL CAPSULE 1 po qid K EFLEX 500 MG ORAL CAPSULE 894870 CEPHALEXIN Inactive COLCRYS 0.6 MG ORAL TABLET 1 tab qid prn gout COLCRYS 0.6 MG ORAL TABLET 736786 COLCHICINE Inactive FAMOTIDINE 20 MG ORAL TABLET by mouth twice a day 2017 FAMOTIDINE 20 MG ORAL TABLET 757316 FAMOTIDINE Inactive GLIMEPIRIDE 2 MG ORAL TABLET 1 po BID GLIMEPIRIDE 2 MG ORAL TABLET 485686 GLIMEPIRIDE Inactive LOVENOX 100 MG/ML SUBCUTANEOUS SOLUTION One injection twice a da y LOVENOX 100 MG/ML SUBCUTANEOUS SOLUTION 710957 ENOXAPAR IN SODIUM Inactive PREDNISONE 20 MG ORAL TABLET 2 tabs daily for 3 days 1 tab d aily for 3 days PREDNISONE 20 MG ORAL TABLET 644319 PREDNISONE Inactive Advance Directives Directive Description Start [...] Panel - Chemistry sodium, serum 140 mmol/L 079-135 0092/11/01 carbon dioxide, venous blood 28.6 mmol/L 21.0-32 [...] mg/dL Encounters Code Encounter Date Provider Facility CPT-75417 38947-Rla Vst-Est Level IV 16:21:22 CDT Bru ce W Carlitos DO [facility] CPT-70315 Level 3 Est. Patient 15:18:36 CDT Becky Se ll ANNIE [facility] CPT-20753 22948-Sid Vst-Est Level IV 10:06:35 CDT Bru robinson [facility] CPT-25092 68476-Hpl Vst-Est Level IV 10:52:00 [employer] SALESPERSON Stephy [facility] CPT-17462 Level 3 Est. Patient 18:25:53 CDT Mitch Arnol luis [facility] CPT-74562 Level 3 Est. Patient 19:43:34 CDT Mitch Arnol luis [facility] CPT-38680 Level 4 Est. Patient 09:30:18 CDT Mitch Castellano [facility] CPT-69779 Level 3 Est. Patient 15:10:14 CDT Joe yunangela [facility] CPT-84321 Level 3 Est. Patient 15:03:46 CDT Joe Gomez anh [facility] CPT-10069 Level 3 Est. Patient 14:21:06 CDT Mitch Arnol luis [facility] CPT-36102 Level 3 Est. Patient 14:52:06 CDT Joe Gomez anh [facility] CPT-75177 Level 3 Est. Patient 09:34:30 [employer] AND PET [employer]PPLIES SALESPERSON Mitch Arnol luis [facility] CPT-06310 Level 3 Est. Patient 09:37:15 CDT Mitch Arnol l[facility] CPT-00581 Level 3 Est. Patient 17:01:00 [employer] AND PET [employer]PPLIES SALESPERSON Mitch Arnol luis [facility] CPT-10966 Level 3 Est. Patient 13:53:19 [employer] AND PET [employer]PPLIES SALESPERSON Mitch luis [facility] CPT-00539 Level 3 Est. Patient 19:19:37 PETS AND PET SUPPLIES SALESPERSON Mitch Arnol luis [facility] CPT-51267 Level 3 Est. Patient 13:25:53 [employer] AND PET [employer]PPLIES SALESPERSON Tavo toure MD [facility] CPT-69496 Level 3 Est. Patient 18:17:28 CDT Mitch luis [facility] CPT-26873 Level 3 Est. Patient 15:22:57 CDT Mitch luis [facility] CPT-58766 Level 3 Est. Patient 18:21:50 CDT Mitch luis [facility] CPT-85036 Level 3 Est. Patient 18:20:38 CDT Mitch luis [facility] CPT-37834 Level 3 Est. Patient 15:37:55 CDT Mitch luis [facility] CPT-21036 Level 2 Est. Patient 15:54:44 CDT Carmine benton MD [facility]-83549 Level 3 Est. Patient 21:46:01 [employer] AND PET [employer]PPLIES SALESPERSON Mitch luis [facility] CPT-46721 Level 3 Est. Patient 22:15:50 CDT Mitch luis [facility] CPT-31555 Level 3 Est. Patient 10:48:15 CDT Mitch luis [facility] CPT-26677 Level 3 Est. Patient 23:20:57 CDT Tavo toure MD [facility] CPT-48192 Level 3 Est. Patient 16:26:13 CDT Mitch luis [facility] Procedures Code Procedure Name Date Entry Date Standard Desc ription CPT-51575 Venipuncture Draw Fee 08:26:21 CDT CPT-40280 Venous Duplex Left Leg XRAY USE ONLY 10:43:10 CDT CPT-84653 Venipuncture Draw Fee 17:04:55 CDT CPT-43819 Venipuncture Draw Fee 17:20:50 CDT CPT-43216 Venipuncture Draw Fee 18:00:48 CDT CPT-31762 Venipuncture Draw Fee 14:56:20 CDT CPT-JTINJ Asp/Joint Injection 18:47:02 CDT CPT-60599 Venipuncture Draw Fee 09:26:17 CDT CPT-81611 PT/INR - LAB USE ONLY 13:32:49 [employer] AND PET [employer]PPLIES SALESPERSON CPT-97222 Venipuncture Draw Fee 13:32:49 PETS AND PET SUPPLIES SALESPERSON CPT-37740 PT/INR - LAB USE ONLY 10:34:49 PETS AND PET SUPPLIES SALESPERSON CPT-19723 Venipuncture Draw Fee 10:34:48 PETS AND PET SUPPLIES SALESPERSON CPT-47934 PT/INR - LAB USE ONLY 09:22:03 PETS AND PET SUPPLIES SALESPERSON CPT-41853 Venipuncture Draw Fee 09:22:02 PETS AND PET SUPPLIES SALESPERSON CPT-40257 Hemoccult IFOBT - LAB USE ONLY 10:27:22 CDT CPT-10858 Venipuncture Draw Fee 08:27:08 CDT CPT-03017 Liver Profile - LAB USE ONLY 08:27:07 CDT 2 CPT-30494 Microalbumin - LAB USE ONLY 08:27:07 CDT 20 25/05/09 CPT-30139 PT/INR - LAB USE ONLY 08:27:07 CDT CPT-20933 HGBA1C - LAB USE ONLY 08:27:07 CDT CPT-82263 CBC - LAB USE ONLY 08:27:07 CDT CPT-94825 Venipuncture Draw Fee 11:09:14 CDT CPT-93929 Venipuncture Draw Fee 08:32:21 [employer] AND PET [employer]PPLIES SALESPERSON CPT-33973 Venipuncture Draw Fee 09:38:56 PETS AND PET [employer]PPLIES SALESPERSON CPT-28170 No Charge Offi Visit 21:36:07 CDT 1 CPT-14357 Venipuncture Draw Fee 10:13:28 PETS AND PET SUPPLIES SALESPERSON CPT-47625 Venipuncture Draw Fee 08:31:11 CDT CPT-77677 Aspir/Inject Med Joint 18:17:28 CDT CPT-77403 Venipuncture Draw Fee 10:13:30 CDT CPT-38794 Venipuncture Draw Fee 08:31:43 PETS AND PET SUPPLIES SALESPERSON CPT-JTINJ Joint Injection 18:34:50 CDT CPT-35308 Knee 3V 12:25:09 CDT CPT-99600 Venipuncture Draw Fee 12:15:57 CDT CPT-060 Medical Surveillance Exam 21:31:43 CDT 2011 CPT-75178 Venipuncture Draw Fee 08:32:05 [employer] AND PET [employer]PPLIES SALESPERSON CPT-OV Office Visit 18:19:06 CDT
--- OUTSIDE RECORDS SUMMARY | 2020-01-18 13:53 | XMS REPORT | Clinical Summary ---
Author Author Admin, Mitch Leon Organization [facility] [employer] Address Unknown Phone Unavailable Allergies, Adverse Reactions, [...] Ambrose Carlitos Cough, chronic ICD-786.2 Inactive Mitch Ambrose Carlitos Tejeda O Sebaceous cyst, infected ICD-706.2 Inactive Mitch Arnol Urbina Cellulitis ICD-682.9 Inactive Mitch Urbina DO 10/23 Influenza Vaccination for Prophylaxis ICD-V04.81 9 Inactive Bhumi Robles Medication List Medication Instructions Start Date Stop Date Generic Name NDC Status Provider Patient Instruction WARFARIN TABS 1MG TAKE 2 TABLETS (2 MG) DAILY WITH THE 5 MG TABLET TO EQUAL 7 MG DAILY WARFARIN SODIUM 78920783978 Active Maria Briones Active WARFARIN SODIUM 5 MG TABS TAKE 1 TABLET DAILY W ARFARIN SODIUM 07924127065 Active Allisno Anthony APRN-C Active KEFLEX 500 MG ORAL CAPSULE 1 capsule by mouth three times da rocky x10 days CEPHALEXIN 20311597530 Active Maria Rivas RN Active METOPROLOL TARTRATE TABS 50MG TAKE 1 TABLET TWICE A DAY (VAL[facility] WORK) METOPROLOL TARTRATE 45633726067 Active Maria Briones Active DOXAZOSIN MESYLATE 2 MG ORAL TABLET 1 po q day for pr ostate and blood pressure DOXAZOSIN MESYLATE 65315503197 Active Mitch Urbina DO Active LOSARTAN TABS 100MG TAKE 1 TABLET DAILY FOR BLOOD PRESSURE LOSARTAN POTASSIUM 82806135758 Active Maria Rivas RN Active FLUTICASONE PROPIONATE 50 MCG/ACT NASAL SUSPENSION 1 s pray each nostril twice daily for 1 week, then once daily FLUTICASONE WV OPIONATE 34587315097 Active Becky Mohamud APRN Active PREDNISONE 20 MG ORAL TABLET 2 tabs daily for 3 days 1 tab d aily for 3 days PREDNISONE 30131704912 No Longer Active Becky Sell [employer]PER[employer] Active MINOXIDIL 2.5 MG ORAL TABLET 1 tablet twice daily for high b lood pressure MINOXIDIL 13397457723 Active Mitch Urbina DO Ac tive METFORMIN HCL ER 500 MG ORAL TABLET EXTENDED RELEASE 2 4 HOUR 2 tablets by mouth twice daily METFORMIN HCL 77396033664 Active Mitch Urbina DO Active GLIMEPIRIDE 4 MG ORAL TABLET 1 tablet by mouth twice daily f or diabetes GLIMEPIRIDE 98360401593 Active Mitch Urbina DO Active GLIMEPIRIDE 2 MG ORAL TABLET 1 po BID GLIMEPI RIDE 05673241973 No Longer Active Mitch Urbina DO Active AMLODIPINE BESYLATE 5 MG ORAL TABLET 1 tablet by mouth daily AMLODIPINE BESYLATE 49596470610 Active Mitch Urbina DO Active PROVIGIL 200 MG ORAL TABLET 1/2 tab po q day MODA FINIL 26479246135 Active Maria Rivas RN Active FAMOTIDINE 20 MG ORAL TABLET by mouth twice a day 2017 FAMOTIDINE 94309648265 No Longer Active Mitch Arnol Urbina DO Active COLCRYS 0.6 MG ORAL TABLET 1 tab qid prn gout C OLCHICINE 90794562314 No Longer Active Mitch Urbina DO Active KEFLEX 500 MG ORAL CAPSULE 1 po qid CEPHALEXI N 45767737074 No Longer Active Mitch Arnol Urbina DO Active AMLODIPINE BESYLATE 5 MG ORAL TABLET 1 tablet by mouth daily 201 01/20/04 AMLODIPINE BESYLATE 31286886785 No Longer Active Joe fulton [employer] SUPER[employer]OR Active MITIGARE 0.6 MG ORAL CAPSULE 2 capsules at onset of go ut pain, then take one capsule at 1 hour if symptoms persist. COLCHICINE 59 845294780 Active Mitch Arnol Urbina DO Active INVOKANA 100 MG ORAL TABLET 1 tablet orally daily CANAGLIFLOZIN 30469737306 Active Mitch Arnol Urbina DO Active MECLIZINE HCL 25 MG ORAL TABLET 1 po tid 3 days, then 1/2 ta b tid 3 days MECLIZINE HCL 58569069732 No Longer Active Corey SEGURA Active ALLOPURINOL 300 MG ORAL TABLET Take 1 tablet by mouth daily 2012 ALLOPURINOL 10796364718 No Longer Active Corey SEGURA Active CLONIDINE HCL 0.1 MG ORAL TABLET 1 po bid 7 days, then 1/2 t ab po bid 7 days CLONIDINE HCL 36212223856 No Longer Active Corey SEGURA Active COUMADIN 4 MG ORAL TABLET 1 tablet daily WARFAR IN SODIUM 20735873407 No Longer Active Corey SEGURA Active POLYTRIM 36123-9.1 UNIT/ML-% OPHTHALMIC SOLUTION 1 rui p in affected eye every 3 hours while awake x 7 days POLYMYXIN B-TRIMETHOP RIM 43499145193 No Longer Active Corey SEGURA Active LOSARTAN POTASSIUM-HCTZ 100-12.5 MG ORAL TABLET 1 by m outh daily for high blood pressure LOSARTAN POTASSIUM-HCTZ 02746356849 No Longer A ctive Mitch Urbina DO Active LISINOPRIL-HYDROCHLOROTHIAZIDE 20-12.5 MG ORAL TABLET 1 tab by m outh daily LISINOPRIL-HYDROCHLOROTHIAZIDE 25330343819 No Longer Active Mitch Urbina DO Active LISINOPRIL 20 MG ORAL TABLET 1 tab po at HS LIS INOPRIL 90665217891 No Longer Active Mitch Urbina DO Active COUMADIN 5 MG ORAL TABLET 1 by mouth every other day 2 WARFARIN SODIUM 55873219728 No Longer Active Mitch Urbina DO Active COUMADIN 6 MG ORAL TABLET 1 by mouth every other day 2 WARFARIN SODIUM 11444474575 No Longer Active Mitch Urbina DO Active SIMVASTATIN 40 MG ORAL TABLET 1 tab daily at bedtime SIMVASTATIN 28803912081 Active Maria Rivas RN Active SIMVASTATIN 20 MG ORAL TABLET 1 tab daily at bedtime 2 SIMVASTATIN 11105705196 No Longer Active Mitch Urbina DO Active LOVENOX 100 MG/ML SUBCUTANEOUS SOLUTION One injection twice a da y ENOXAPARIN SODIUM 52008821555 No Longer Active Carmine Yusuf MD Active JANUVIA 50 MG ORAL TABLET Take one by mouth daily SITAGLIPTIN PHOSPHATE 89556834945 Active Renee Oconnor LPN Active JANUVIA 100 MG ORAL TABLET 1/2 by mouth every day 2011 SITAGLIPTIN PHOSPHATE 46908288585 No Longer Active Bijal Segal RN Acti ve METFORMIN HCL 500 MG ORAL TABLET 2 by mouth twice daily METFORMIN HCL 02789549283 No Longer Active Renee Oconnor LPN Active COLCRYS 0.6 MG ORAL TABLET 1 po q 6 hours prn gout pain COLCHICINE 91306345686 No Longer Active Camila Reese Active LISINOPRIL 5 MG ORAL TABLET 1 by mouth every day 11/17 LISINOPRIL 70445447958 No Longer Active Nguyen Perez Active KLOR-CON 20 MEQ ORAL PACKET Take one by mouth daily 09/10/08 POTASSIUM CHLORIDE 77133923904 No Longer Active Nguyen Perez Active FUROSEMIDE 40 MG ORAL TABLET 1 by mouth daily F UROSEMIDE 01212978524 No Longer Active Nguyen Perez Active PROVIGIL 100 MG ORAL TABLET Take one by mouth daily 20 08/20/04 MODAFINIL 81618482214 No Longer Active Mitch Urbina DO Active BACTRIM DS 800-160 MG ORAL TABLET 1 tab by mouth twice daily 201 10/19/09 TRIMETHOPRIM-SULFAMETHOXAZOLE 83954324827 No Longer Active Elian Hays MD Active ADULT ASPIRIN LOW STRENGTH 81 MG ORAL TABLET DISINTEGR ATING 1 by mouth every daily ASPIRIN 94070038109 Active Mitch Urbina DO Ac tive BACTRIM DS 800-160 MG ORAL TABLET 1 tab by mouth twice daily 201 10/19/09 BACTRIM DS 800-160 MG ORAL TABLET 963707 TRIMETHOPRIM-SULFAMETHOXAZOLE Inactive PROVIGIL 100 MG ORAL TABLET Take one by mouth daily 20 08/20/04 PROVIGIL 100 MG ORAL TABLET 988309 MODAFINIL Inactive FUROSEMIDE 40 MG ORAL TABLET 1 by mouth daily FUROSEMIDE 40 MG ORAL TABLET 109065 FUROSEMIDE Inactive KLOR-CON 20 MEQ ORAL PACKET Take one by mouth daily 09/10/08 KLOR- CON 20 MEQ ORAL PACKET 1396408 POTASSIUM CHLORIDE Inactive LISINOPRIL 5 MG ORAL TABLET 1 by mouth every day 11/17 LISINOPRIL 5 MG ORAL TABLET 468747 LISINOPRIL Inactive COLCRYS 0.6 MG ORAL TABLET 1 po q 6 hours prn gout pain COLCRYS 0.6 MG ORAL TABLET 384478 COLCHICINE Inactive JANUVIA 100 MG ORAL TABLET 1/2 by mouth every day 2011 JANUVIA 100 MG ORAL TABLET SITAGLIPTIN PHOSPHATE Inactive SIMVASTATIN 20 MG ORAL TABLET 1 tab daily at bedtime 2 SIMVASTATIN 20 MG ORAL TABLET 047316 SIMVASTATIN Inactive COUMADIN 6 MG ORAL TABLET 1 by mouth every other day COUMADIN 6 MG ORAL TABLET 070059 WARFARIN SODIUM Inactive COUMADIN 5 MG ORAL TABLET 1 by mouth every other day COUMADIN 5 MG ORAL TABLET 731356 WARFARIN SODIUM Inactive LISINOPRIL 20 MG ORAL TABLET 1 tab po at HS LISINOPRIL 20 MG ORAL TABLET 469799 LISINOPRIL Inactive LISINOPRIL-HYDROCHLOROTHIAZIDE 20-12.5 MG ORAL TABLET 1 tab by m outh daily LISINOPRIL-HYDROCHLOROTHIAZIDE 20-12.5 MG ORAL TABLET 351284 LISINOPRIL-HYDROCHLOROTHIAZIDE Inactive POLYTRIM 65709-9.1 UNIT/ML-% OPHTHALMIC SOLUTION 1 rui p in affected eye every 3 hours while awake x 7 days POLYTRIM 1000 0-0.1 UNIT/ML-% OPHTHALMIC SOLUTION 150247 POLYMYXIN B-TRIMETHOPRIM Inactive COUMADIN 4 MG ORAL TABLET 1 tablet daily COUMADIN 4 MG ORAL TABLET 754152 WARFARIN SODIUM Inactive CLONIDINE HCL 0.1 MG ORAL TABLET 1 po bid 7 days, then 1/2 t ab po bid 7 days CLONIDINE HCL 0.1 MG ORAL TABLET 208942 CLONIDIN E HCL Inactive ALLOPURINOL 300 MG ORAL TABLET Take 1 tablet by mouth daily 2012 ALLOPURINOL 300 MG ORAL TABLET 317984 ALLOPURINOL I nactive MECLIZINE HCL 25 MG ORAL TABLET 1 po tid 3 days, then 1/2 ta b tid 3 days MECLIZINE HCL 25 MG ORAL TABLET 774648 MECLIZINE HCL Inactive AMLODIPINE BESYLATE 5 MG ORAL TABLET 1 tablet by mouth daily 201 01/20/04 AMLODIPINE BESYLATE 5 MG ORAL TABLET 659403 AMLODIPINE BESYLATE Inactive KEFLEX 500 MG ORAL CAPSULE 1 po qid K EFLEX 500 MG ORAL CAPSULE 072048 CEPHALEXIN Inactive COLCRYS 0.6 MG ORAL TABLET 1 tab qid prn gout COLCRYS 0.6 MG ORAL TABLET 569055 COLCHICINE Inactive FAMOTIDINE 20 MG ORAL TABLET by mouth twice a day 2017 FAMOTIDINE 20 MG ORAL TABLET 259712 FAMOTIDINE Inactive GLIMEPIRIDE 2 MG ORAL TABLET 1 po BID GLIMEPIRIDE 2 MG ORAL TABLET 927935 GLIMEPIRIDE Inactive LOVENOX 100 MG/ML SUBCUTANEOUS SOLUTION One injection twice a da y LOVENOX 100 MG/ML SUBCUTANEOUS SOLUTION 849666 ENOXAPAR IN SODIUM Inactive PREDNISONE 20 MG ORAL TABLET 2 tabs daily for 3 days 1 tab d aily for 3 days PREDNISONE 20 MG ORAL TABLET 599325 PREDNISONE Inactive Advance Directives Directive Description Start [...] Panel - Chemistry sodium, serum 140 mmol/L 177-098 8927/11/01 carbon dioxide, venous blood 28.6 mmol/L 21.0-32 [...] mg/dL Encounters Code Encounter Date Provider Facility CPT-44688 [id number] Vst-Est Level IV 16:21:22 CDT Bru robinson Ambrose [facility] CPT-70995 Level 3 Est. Patient 15:18:36 CDT Becky Quezada ll [employer]PER[employer] [facility] CPT-86508 [id number] Vst-Est Level IV 10:06:35 CDT Bru robinson Ambrose Carlitos [facility]-67596 [id number] Vst-Est Level IV 10:52:00 VP ANALYSIS Stephy Urbina [facility]-26542 Level 3 Est. Patient 18:25:53 CDT Mitch Arnol luis [facility] CPT-56431 Level 3 Est. Patient 19:43:34 CDT Mitch Ambrose Nona luis [facility] CPT-78647 Level 4 Est. Patient 09:30:18 CDT Mitch Arnol luis [facility] CPT-06366 Level 3 Est. Patient 15:10:14 CDT Joe Gomez anh [facility]-00760 Level 3 Est. Patient 15:03:46 CDT Joe Jason kamara [facility] CPT-93091 Level 3 Est. Patient 14:21:06 CDT Mitch Ambrose Nona luis [facility] CPT-09248 Level 3 Est. Patient 14:52:06 CDT Joe Jason kamara [facility] CPT-57840 Level 3 Est. Patient 09:34:30 VP ANALYSIS Mitch Ambrose Nona luis [facility] CPT-21864 Level 3 Est. Patient 09:37:15 CDT Mitch Arnol luis [facility] CPT-79333 Level 3 Est. Patient 17:01:00 VP ANALYSIS Mitch luis [facility] CPT-25985 Level 3 Est. Patient 13:53:19 VP ANALYSIS Mitch Castellano janelle [facility] CPT-27469 Level 3 Est. Patient 19:19:37 VP ANALYSIS Mitch luis [facility] CPT-98733 Level 3 Est. Patient 13:25:53 VP ANALYSIS Tavo toure MD [facility] CPT-20483 Level 3 Est. Patient 18:17:28 CDT Mitch luis [facility] CPT-57056 Level 3 Est. Patient 15:22:57 CDT Mitch luis [facility] CPT-50942 Level 3 Est. Patient 18:21:50 CDT Mitch luis [facility] CPT-10317 Level 3 Est. Patient 18:20:38 CDT Mitch luis [facility] CPT-37464 Level 3 Est. Patient 15:37:55 CDT Mitch luis [facility] CPT-92177 Level 2 Est. Patient 15:54:44 CDT Carmine benton MD [facility]-75633 Level 3 Est. Patient 21:46:01 VP ANALYSIS Mitch luis [facility] CPT-64764 Level 3 Est. Patient 22:15:50 CDT Mitch luis [facility] CPT-29615 Level 3 Est. Patient 10:48:15 CDT Mitch luis [facility] CPT-74870 Level 3 Est. Patient 23:20:57 CDT Tavo toure MD [facility]-65823 Level 3 Est. Patient 16:26:13 CDT Mitch luis [facility] Procedures Code Procedure Name Date Entry Date Standard Desc ription CPT-26841 Venipuncture Draw Fee 08:26:21 CDT CPT-84179 Venous Duplex Left Leg XRAY USE ONLY 10:43:10 CDT CPT-69165 Venipuncture Draw Fee 17:04:55 CDT CPT-38037 Venipuncture Draw Fee 17:20:50 CDT CPT-95330 Venipuncture Draw Fee 18:00:48 CDT CPT-16438 Venipuncture Draw Fee 14:56:20 CDT CPT-JTINJ Asp/Joint Injection 18:47:02 CDT CPT-60315 Venipuncture Draw Fee 09:26:17 CDT CPT-21271 PT/INR - LAB USE ONLY 13:32:49 VP ANALYSIS CPT-97734 Venipuncture Draw Fee 13:32:49 VP ANALYSIS CPT-72468 PT/INR - LAB USE ONLY 10:34:49 VP ANALYSIS CPT-10445 Venipuncture Draw Fee 10:34:48 VP ANALYSIS CPT-04891 PT/INR - LAB USE ONLY 09:22:03 VP ANALYSIS CPT-52502 Venipuncture Draw Fee 09:22:02 VP ANALYSIS CPT-15449 Hemoccult IFOBT - LAB USE ONLY 10:27:22 CDT CPT-56069 Venipuncture Draw Fee 08:27:08 CDT CPT-70928 Liver Profile - LAB USE ONLY 08:27:07 CDT 2 CPT-34083 Microalbumin - LAB USE ONLY 08:27:07 CDT 20 25/05/09 CPT-28482 PT/INR - LAB USE ONLY 08:27:07 CDT CPT-30797 HGBA1C - LAB USE ONLY 08:27:07 CDT CPT-32539 CBC - LAB USE ONLY 08:27:07 CDT CPT-84310 Venipuncture Draw Fee 11:09:14 CDT CPT-55815 Venipuncture Draw Fee 08:32:21 VP ANALYSIS CPT-92205 Venipuncture Draw Fee 09:38:56 VP ANALYSIS CPT-08560 No Charge Offi Visit 21:36:07 CDT 1 CPT-36508 Venipuncture Draw Fee 10:13:28 VP ANALYSIS CPT-46396 Venipuncture Draw Fee 08:31:11 CDT CPT-27796 Aspir/Inject Med Joint 18:17:28 CDT CPT-02239 Venipuncture Draw Fee 10:13:30 CDT CPT-04030 Venipuncture Draw Fee 08:31:43 VP ANALYSIS CPT-JTINJ Joint Injection 18:34:50 CDT CPT-20322 Knee 3V 12:25:09 CDT CPT-80229 Venipuncture Draw Fee 12:15:57 CDT CPT-060 Medical Surveillance Exam 21:31:43 CDT 2011 CPT-08758 Venipuncture Draw Fee 08:32:05 VP ANALYSIS CPT-OV Office Visit 18:19:06 CDT
--- OUTSIDE RECORDS SUMMARY | 2020-01-18 13:53 | XMS REPORT | Clinical Summary ---
Author Author Admin, Mitch Leon Organization [facility] Address Unknown Phone Unavailable Allergies, Adverse Reactions, [...] Coronary atherosclerosis of unspecified type of vessel, [place] or graft EDEMA 782.3 Resolved Mitch [...] TO EQUAL 7 MG DAILY WARFARIN SODIUM 60657771249 Active Maria Briones Active WARFARIN SODIUM 5 MG TABS TAKE 1 TABLET DAILY W ARFARIN SODIUM 79608935498 Active Allison Anthony APRN-C Active KEFLEX 500 MG ORAL CAPSULE 1 capsule by mouth three times da rocky x10 days CEPHALEXIN 16422958351 Active Maria iRvas RN Active METOPROLOL TARTRATE TABS 50MG TAKE 1 TABLET TWICE A DAY ([facility] WORK) METOPROLOL TARTRATE 98711184260 Active Maria Briones Active DOXAZOSIN MESYLATE 2 MG ORAL TABLET 1 po q day for pr ostate and blood pressure DOXAZOSIN MESYLATE 63033990745 Active Mitch Urbina DO Active LOSARTAN TABS 100MG TAKE 1 TABLET DAILY FOR BLOOD PRESSURE LOSARTAN POTASSIUM 02856031454 Active Maria Rivas RN Active FLUTICASONE PROPIONATE 50 MCG/ACT NASAL SUSPENSION 1 s pray each nostril twice daily for 1 week, then once daily FLUTICASONE ME OPIONATE 14824547897 Active Becky Mohamud APRN Active PREDNISONE 20 MG ORAL TABLET 2 tabs daily for 3 days 1 tab d aily for 3 days PREDNISONE 78490535146 No Longer Active Becky Sell TOOL DISPATCHER Active MINOXIDIL 2.5 MG ORAL TABLET 1 tablet twice daily for high b lood pressure MINOXIDIL 23818424374 Active Mitch Urbina DO Ac tive METFORMIN HCL ER 500 MG ORAL TABLET EXTENDED RELEASE 2 4 HOUR 2 tablets by mouth twice daily METFORMIN HCL 63846176484 Active Mitch Urbina DO Active GLIMEPIRIDE 4 MG ORAL TABLET 1 tablet by mouth twice daily f or diabetes GLIMEPIRIDE 29886323987 Active Mitch Urbina DO Active GLIMEPIRIDE 2 MG ORAL TABLET 1 po BID GLIMEPI RIDE 48152661823 No Longer Active Mitch Urbina DO Active AMLODIPINE BESYLATE 5 MG ORAL TABLET 1 tablet by mouth daily AMLODIPINE BESYLATE 35940708085 Active Mitch Urbina DO Active PROVIGIL 200 MG ORAL TABLET 1/2 tab po q day MODA FINIL 88005186030 Active Maria Rivas RN Active FAMOTIDINE 20 MG ORAL TABLET by mouth twice a day 2017 FAMOTIDINE 29352592591 No Longer Active Mitch Arnol Urbina DO Active COLCRYS 0.6 MG ORAL TABLET 1 tab qid prn gout C OLCHICINE 10546544832 No Longer Active Mitch Urbina DO Active KEFLEX 500 MG ORAL CAPSULE 1 po qid CEPHALEXI N 07822037593 No Longer Active Mitch Arnol Urbina DO Active AMLODIPINE BESYLATE 5 MG ORAL TABLET 1 tablet by mouth daily 201 01/20/04 AMLODIPINE BESYLATE 78484034381 No Longer Active Joe fulton TOOL DISPATCHER Active MITIGARE 0.6 MG ORAL CAPSULE 2 capsules at onset of go ut pain, then take one capsule at 1 hour if symptoms persist. COLCHICINE 59 235099718 Active Mitch Arnol Urbina DO Active INVOKANA 100 MG ORAL TABLET 1 tablet orally daily CANAGLIFLOZIN 99988552706 Active Mitch Arnol Urbina DO Active MECLIZINE HCL 25 MG ORAL TABLET 1 po tid 3 days, then 1/2 ta b tid 3 days MECLIZINE HCL 50611586818 No Longer Active Corey SEGURA Active ALLOPURINOL 300 MG ORAL TABLET Take 1 tablet by mouth daily 2012 ALLOPURINOL 60665411385 No Longer Active Corey SEGURA Active CLONIDINE HCL 0.1 MG ORAL TABLET 1 po bid 7 days, then 1/2 t ab po bid 7 days CLONIDINE HCL 86091239237 No Longer Active Corey SEGURA Active COUMADIN 4 MG ORAL TABLET 1 tablet daily WARFAR IN SODIUM 99311301781 No Longer Active Corey SEGURA Active POLYTRIM 41751-8.1 UNIT/ML-% OPHTHALMIC SOLUTION 1 rui p in affected eye every 3 hours while awake x 7 days POLYMYXIN B-TRIMETHOP RIM 90559245899 No Longer Active Corey SEGURA Active LOSARTAN POTASSIUM-HCTZ 100-12.5 MG ORAL TABLET 1 by m outh daily for high blood pressure LOSARTAN POTASSIUM-HCTZ 42813300820 No Longer A ctive Mitch Urbina DO Active LISINOPRIL-HYDROCHLOROTHIAZIDE 20-12.5 MG ORAL TABLET 1 tab by m outh daily LISINOPRIL-HYDROCHLOROTHIAZIDE 96060279565 No Longer Active Mitch Urbina DO Active LISINOPRIL 20 MG ORAL TABLET 1 tab po at HS LIS INOPRIL 95878639851 No Longer Active Mitch Urbina DO Active COUMADIN 5 MG ORAL TABLET 1 by mouth every other day 2 WARFARIN SODIUM 35627441879 No Longer Active Mitch Urbina DO Active COUMADIN 6 MG ORAL TABLET 1 by mouth every other day 2 WARFARIN SODIUM 93766939149 No Longer Active Mitch Urbina DO Active SIMVASTATIN 40 MG ORAL TABLET 1 tab daily at bedtime SIMVASTATIN 18470267983 Active Maria Rivas RN Active SIMVASTATIN 20 MG ORAL TABLET 1 tab daily at bedtime 2 SIMVASTATIN 88981403825 No Longer Active Mitch Urbina DO Active LOVENOX 100 MG/ML SUBCUTANEOUS SOLUTION One injection twice a da y ENOXAPARIN SODIUM 24177775732 No Longer Active Carmine Yusuf MD Active JANUVIA 50 MG ORAL TABLET Take one by mouth daily SITAGLIPTIN PHOSPHATE 88030048849 Active Renee Oconnor LPN Active JANUVIA 100 MG ORAL TABLET 1/2 by mouth every day 2011 SITAGLIPTIN PHOSPHATE 41524426510 No Longer Active Bijal Segal RN Acti ve METFORMIN HCL 500 MG ORAL TABLET 2 by mouth twice daily METFORMIN HCL 75667584867 No Longer Active Renee Oconnor LPN Active COLCRYS 0.6 MG ORAL TABLET 1 po q 6 hours prn gout pain COLCHICINE 73841276908 No Longer Active Camila Reese Active LISINOPRIL 5 MG ORAL TABLET 1 by mouth every day 11/17 LISINOPRIL 29852287587 No Longer Active Nguyen Perez Active KLOR-CON 20 MEQ ORAL PACKET Take one by mouth daily 09/10/08 POTASSIUM CHLORIDE 58818184256 No Longer Active Nguyen Perez Active FUROSEMIDE 40 MG ORAL TABLET 1 by mouth daily F UROSEMIDE 16796309471 No Longer Active Nguyen Perez Active PROVIGIL 100 MG ORAL TABLET Take one by mouth daily 20 08/20/04 MODAFINIL 93796790647 No Longer Active Mitch Urbina DO Active BACTRIM DS 800-160 MG ORAL TABLET 1 tab by mouth twice daily 201 10/19/09 TRIMETHOPRIM-SULFAMETHOXAZOLE 16293194236 No Longer Active Elian Hays MD Active ADULT ASPIRIN LOW STRENGTH 81 MG ORAL TABLET DISINTEGR ATING 1 by mouth every daily ASPIRIN 49578250873 Active Mitch Urbina DO Ac tive BACTRIM DS 800-160 MG ORAL TABLET 1 tab by mouth twice daily 201 10/19/09 BACTRIM DS 800-160 MG ORAL TABLET 772326 TRIMETHOPRIM-SULFAMETHOXAZOLE Inactive PROVIGIL 100 MG ORAL TABLET Take one by mouth daily 20 08/20/04 PROVIGIL 100 MG ORAL TABLET 582051 MODAFINIL Inactive FUROSEMIDE 40 MG ORAL TABLET 1 by mouth daily FUROSEMIDE 40 MG ORAL TABLET 752604 FUROSEMIDE Inactive KLOR-CON 20 MEQ ORAL PACKET Take one by mouth daily 09/10/08 KLOR- CON 20 MEQ ORAL PACKET 8255200 POTASSIUM CHLORIDE Inactive LISINOPRIL 5 MG ORAL TABLET 1 by mouth every day 11/17 LISINOPRIL 5 MG ORAL TABLET 575784 LISINOPRIL Inactive COLCRYS 0.6 MG ORAL TABLET 1 po q 6 hours prn gout pain COLCRYS 0.6 MG ORAL TABLET 744122 COLCHICINE Inactive JANUVIA 100 MG ORAL TABLET 1/2 by mouth every day 2011 JANUVIA 100 MG ORAL TABLET SITAGLIPTIN PHOSPHATE Inactive SIMVASTATIN 20 MG ORAL TABLET 1 tab daily at bedtime 2 SIMVASTATIN 20 MG ORAL TABLET 368935 SIMVASTATIN Inactive COUMADIN 6 MG ORAL TABLET 1 by mouth every other day COUMADIN 6 MG ORAL TABLET 666780 WARFARIN SODIUM Inactive COUMADIN 5 MG ORAL TABLET 1 by mouth every other day COUMADIN 5 MG ORAL TABLET 632086 WARFARIN SODIUM Inactive LISINOPRIL 20 MG ORAL TABLET 1 tab po at HS LISINOPRIL 20 MG ORAL TABLET 454275 LISINOPRIL Inactive LISINOPRIL-HYDROCHLOROTHIAZIDE 20-12.5 MG ORAL TABLET 1 tab by m outh daily LISINOPRIL-HYDROCHLOROTHIAZIDE 20-12.5 MG ORAL TABLET 203793 LISINOPRIL-HYDROCHLOROTHIAZIDE Inactive POLYTRIM 84300-2.1 UNIT/ML-% OPHTHALMIC SOLUTION 1 rui p in affected eye every 3 hours while awake x 7 days POLYTRIM 1000 0-0.1 UNIT/ML-% OPHTHALMIC SOLUTION 238787 POLYMYXIN B-TRIMETHOPRIM Inactive COUMADIN 4 MG ORAL TABLET 1 tablet daily COUMADIN 4 MG ORAL TABLET 787857 WARFARIN SODIUM Inactive CLONIDINE HCL 0.1 MG ORAL TABLET 1 po bid 7 days, then 1/2 t ab po bid 7 days CLONIDINE HCL 0.1 MG ORAL TABLET 648886 CLONIDIN E HCL Inactive ALLOPURINOL 300 MG ORAL TABLET Take 1 tablet by mouth daily 2012 ALLOPURINOL 300 MG ORAL TABLET 767794 ALLOPURINOL I nactive MECLIZINE HCL 25 MG ORAL TABLET 1 po tid 3 days, then 1/2 ta b tid 3 days MECLIZINE HCL 25 MG ORAL TABLET 850581 MECLIZINE HCL Inactive AMLODIPINE BESYLATE 5 MG ORAL TABLET 1 tablet by mouth daily 201 01/20/04 AMLODIPINE BESYLATE 5 MG ORAL TABLET 456587 AMLODIPINE BESYLATE Inactive KEFLEX 500 MG ORAL CAPSULE 1 po qid K EFLEX 500 MG ORAL CAPSULE 974504 CEPHALEXIN Inactive COLCRYS 0.6 MG ORAL TABLET 1 tab qid prn gout COLCRYS 0.6 MG ORAL TABLET 442516 COLCHICINE Inactive FAMOTIDINE 20 MG ORAL TABLET by mouth twice a day 2017 FAMOTIDINE 20 MG ORAL TABLET 056086 FAMOTIDINE Inactive GLIMEPIRIDE 2 MG ORAL TABLET 1 po BID GLIMEPIRIDE 2 MG ORAL TABLET 187913 GLIMEPIRIDE Inactive LOVENOX 100 MG/ML SUBCUTANEOUS SOLUTION One injection twice a da y LOVENOX 100 MG/ML SUBCUTANEOUS SOLUTION 753576 ENOXAPAR IN SODIUM Inactive PREDNISONE 20 MG ORAL TABLET 2 tabs daily for 3 days 1 tab d aily for 3 days PREDNISONE 20 MG ORAL TABLET 548982 PREDNISONE Inactive Advance Directives Directive Description Start [...] Panel - Chemistry sodium, serum 140 mmol/L 296-363 1478/11/01 carbon dioxide, venous blood 28.6 mmol/L 21.0-32 [...] mg/dL Encounters Code Encounter Date Provider Facility CPT-11922 94106-Hpc Vst-Est Level IV 16:21:22 CDT Bru robinson Ambrose [facility] CPT-89508 Level 3 Est. Patient 15:18:36 CDT Becky Quezada ll TOOL DISPATCHER [facility] CPT-58219 99769-Otl Vst-Est Level IV 10:06:35 CDT Bru robinson Ambrose [facility] -67161 62584-Shn Vst-Est Level IV 10:52:00 BOILER TECHNICIAN Stephy Urbina -23674 Level 3 Est. Patient 18:25:53 CDT Mitch Arnol luis [facility] CPT-80735 Level 3 Est. Patient 19:43:34 CDT Mitch Ambrose Nona luis [facility] CPT-95740 Level 4 Est. Patient 09:30:18 CDT Mitch Arnol luis [facility] CPT-91540 Level 3 Est. Patient 15:10:14 CDT Joe Gomez anh [facility]-95067 Level 3 Est. Patient 15:03:46 CDT Joe Jason kamara [facility] CPT-67593 Level 3 Est. Patient 14:21:06 CDT Mitch Ambrose Nona luis [facility] CPT-03706 Level 3 Est. Patient 14:52:06 CDT Joe Jason kamara [facility] CPT-08864 Level 3 Est. Patient 09:34:30 BOILER TECHNICIAN Mitch Ambrose Nona luis [facility] CPT-77088 Level 3 Est. Patient 09:37:15 CDT Mitch Arnol luis [facility] CPT-30382 Level 3 Est. Patient 17:01:00 BOILER TECHNICIAN Mitch luis [facility] CPT-31110 Level 3 Est. Patient 13:53:19 BOILER TECHNICIAN Mitch Castellano janelle [facility] CPT-61770 Level 3 Est. Patient 19:19:37 BOILER TECHNICIAN Mitch luis [facility] CPT-05268 Level 3 Est. Patient 13:25:53 BOILER TECHNICIAN Tavo toure MD [facility] CPT-27514 Level 3 Est. Patient 18:17:28 CDT Mitch luis [facility] CPT-78764 Level 3 Est. Patient 15:22:57 CDT Mitch luis [facility] CPT-47177 Level 3 Est. Patient 18:21:50 CDT Mitch luis [facility] CPT-70016 Level 3 Est. Patient 18:20:38 CDT Mitch luis [facility] CPT-55678 Level 3 Est. Patient 15:37:55 CDT Mitch luis [facility] CPT-25103 Level 2 Est. Patient 15:54:44 CDT Carmine benton MD [facility]-16639 Level 3 Est. Patient 21:46:01 BOILER TECHNICIAN Mitch luis [facility] CPT-60561 Level 3 Est. Patient 22:15:50 CDT Mitch luis [facility] CPT-65106 Level 3 Est. Patient 10:48:15 CDT Mitch luis [facility] CPT-15600 Level 3 Est. Patient 23:20:57 CDT Tavo toure MD [facility]-78823 Level 3 Est. Patient 16:26:13 CDT Mitch luis [facility] Procedures Code Procedure Name Date Entry Date Standard Desc ription CPT-84336 Venipuncture Draw Fee 08:26:21 CDT CPT-56250 Venous Duplex Left Leg XRAY USE ONLY 10:43:10 CDT CPT-62773 Venipuncture Draw Fee 17:04:55 CDT CPT-03649 Venipuncture Draw Fee 17:20:50 CDT CPT-14584 Venipuncture Draw Fee 18:00:48 CDT CPT-96153 Venipuncture Draw Fee 14:56:20 CDT CPT-JTINJ Asp/Joint Injection 18:47:02 CDT CPT-94355 Venipuncture Draw Fee 09:26:17 CDT CPT-06337 PT/INR - LAB USE ONLY 13:32:49 BOILER TECHNICIAN CPT-20745 Venipuncture Draw Fee 13:32:49 BOILER TECHNICIAN CPT-34935 PT/INR - LAB USE ONLY 10:34:49 BOILER TECHNICIAN CPT-71422 Venipuncture Draw Fee 10:34:48 BOILER TECHNICIAN CPT-18530 PT/INR - LAB USE ONLY 09:22:03 BOILER TECHNICIAN CPT-74435 Venipuncture Draw Fee 09:22:02 BOILER TECHNICIAN CPT-22581 Hemoccult IFOBT - LAB USE ONLY 10:27:22 CDT CPT-39936 Venipuncture Draw Fee 08:27:08 CDT CPT-89017 Liver Profile - LAB USE ONLY 08:27:07 CDT 2 CPT-08182 Microalbumin - LAB USE ONLY 08:27:07 CDT 20 25/05/09 CPT-10144 PT/INR - LAB USE ONLY 08:27:07 CDT CPT-40737 HGBA1C - LAB USE ONLY 08:27:07 CDT CPT-38308 CBC - LAB USE ONLY 08:27:07 CDT CPT-73398 Venipuncture Draw Fee 11:09:14 CDT CPT-44352 Venipuncture Draw Fee 08:32:21 BOILER TECHNICIAN CPT-13293 Venipuncture Draw Fee 09:38:56 BOILER TECHNICIAN CPT-60572 No Charge Offi Visit 21:36:07 CDT 1 CPT-82676 Venipuncture Draw Fee 10:13:28 BOILER TECHNICIAN CPT-14980 Venipuncture Draw Fee 08:31:11 CDT CPT-87918 Aspir/Inject Med Joint 18:17:28 CDT CPT-03935 Venipuncture Draw Fee 10:13:30 CDT CPT-24182 Venipuncture Draw Fee 08:31:43 BOILER TECHNICIAN CPT-JTINJ Joint Injection 18:34:50 CDT CPT-50083 Knee 3V 12:25:09 CDT CPT-45013 Venipuncture Draw Fee 12:15:57 CDT CPT-060 Medical Surveillance Exam 21:31:43 CDT 2011 CPT-93536 Venipuncture Draw Fee 08:32:05 BOILER TECHNICIAN CPT-OV Office Visit 18:19:06 CDT
--- OUTSIDE RECORDS SUMMARY | 2020-01-18 13:54 | XMS REPORT | Clinical Summary ---
[...] Coronary atherosclerosis of unspecified type of vessel, [place] ira or graft EDEMA 782.3 Resolved Mitch [...] TO EQUAL 7 MG DAILY WARFARIN SODIUM 04850897226 Active Maria Briones Active WARFARIN SODIUM 5 MG TABS TAKE 1 TABLET DAILY W ARFARIN SODIUM 99249022181 Active Allison PERERA Active KEFLEX 500 MG ORAL CAPSULE 1 capsule by mouth three times da rocky x10 days CEPHALEXIN 93056437255 Active Maria Rivas RN Active METOPROLOL TARTRATE TABS 50MG TAKE 1 TABLET TWICE A DAY (ROSAE D LAB WORK) METOPROLOL TARTRATE 46805085332 Active Maria Briones Active DOXAZOSIN MESYLATE 2 MG ORAL TABLET 1 po q day for pr ostate and blood pressure DOXAZOSIN MESYLATE 98067947123 Active Mitch Urbina DO Active LOSARTAN TABS 100MG TAKE 1 TABLET DAILY FOR BLOOD PRESSURE LOSARTAN POTASSIUM 93447780375 Active Maria Rivas RN Active FLUTICASONE PROPIONATE 50 MCG/ACT NASAL SUSPENSION 1 s pray each nostril twice daily for 1 week, then once daily FLUTICASONE [place] OPIONATE 98572867847 Active Becky Mohamud APRN Active PREDNISONE 20 MG ORAL TABLET 2 tabs daily for 3 days 1 tab d aily for 3 days PREDNISONE 27386244007 No Longer Active Becky Mohamud APRN Active MINOXIDIL 2.5 MG ORAL TABLET 1 tablet twice daily for high b lood pressure MINOXIDIL 19945867879 Active Mitch Urbina DO Ac tive METFORMIN HCL ER 500 MG ORAL TABLET EXTENDED RELEASE 2 4 HOUR 2 tablets by mouth twice daily METFORMIN HCL 41423042192 Active Mitch Urbina DO Active GLIMEPIRIDE 4 MG ORAL TABLET 1 tablet by mouth twice daily f or diabetes GLIMEPIRIDE 92091362739 Active Mitch Urbina DO Active GLIMEPIRIDE 2 MG ORAL TABLET 1 po BID GLIMEPI RIDE 81430261541 No Longer Active Mitch Urbina DO Active AMLODIPINE BESYLATE 5 MG ORAL TABLET 1 tablet by mouth daily AMLODIPINE BESYLATE 27890917505 Active Mitch Urbina DO Active PROVIGIL 200 MG ORAL TABLET 1/2 tab po q day MODA FINIL 15388376690 Active Maria Rivas RN Active FAMOTIDINE 20 MG ORAL TABLET by mouth twice a day 2017 FAMOTIDINE 13271612833 No Longer Active Mitch Urbina DO Active COLCRYS 0.6 MG ORAL TABLET 1 tab qid prn gout C OLCHICINE 08298740459 No Longer Active Mitch Urbina DO Active KEFLEX 500 MG ORAL CAPSULE 1 po qid CEPHALEXI N 37393825141 No Longer Active Mitch Urbina DO Active AMLODIPINE BESYLATE 5 MG ORAL TABLET 1 tablet by mouth daily 201 01/20/04 AMLODIPINE BESYLATE 91360935221 No Longer Active Joe fulton APRN Active MITIGARE 0.6 MG ORAL CAPSULE 2 capsules at onset of go ut pain, then take one capsule at 1 hour if symptoms persist. COLCHICINE 59 255584266 Active Mitch Urbina DO Active INVOKANA 100 MG ORAL TABLET 1 tablet orally daily CANAGLIFLOZIN 01359860544 Active Mitch Urbina DO Active MECLIZINE HCL 25 MG ORAL TABLET 1 po tid 3 days, then /2 ta b tid 3 days MECLIZINE HCL 02782676748 No Longer Active Corey SEGURA Active ALLOPURINOL 300 MG ORAL TABLET Take 1 tablet by mouth daily 2012 ALLOPURINOL 32020622784 No Longer Active Corey SEGURA Active CLONIDINE HCL 0.1 MG ORAL TABLET 1 po bid 7 days, then 1/2 t ab po bid 7 days CLONIDINE HCL 20389373156 No Longer Active Corey SEGURA Active COUMADIN 4 MG ORAL TABLET 1 tablet daily WARFAR IN SODIUM 91307676683 No Longer Active Corey SEGURA Active POLYTRIM 37129-3.1 UNIT/ML-% OPHTHALMIC SOLUTION 1 rui p in affected eye every 3 hours while awake x 7 days POLYMYXIN B-TRIMETHOP RIM 38210632556 No Longer Active Corey SEGURA Active LOSARTAN POTASSIUM-HCTZ 100-12.5 MG ORAL TABLET 1 by m outh daily for high blood pressure LOSARTAN POTASSIUM-HCTZ 02500688147 No Longer A ctive Mitch Urbina DO Active LISINOPRIL-HYDROCHLOROTHIAZIDE 20-12.5 MG ORAL TABLET 1 tab by m outh daily LISINOPRIL-HYDROCHLOROTHIAZIDE 06763351139 No Longer Active Mitch Urbina DO Active LISINOPRIL 20 MG ORAL TABLET 1 tab po at HS LIS INOPRIL 59796814654 No Longer Active Mitch Urbina DO Active COUMADIN 5 MG ORAL TABLET 1 by mouth every other day 2 WARFARIN SODIUM 07594271017 No Longer Active Mitch Urbina DO Active COUMADIN 6 MG ORAL TABLET 1 by mouth every other day 2 WARFARIN SODIUM 59281066473 No Longer Active Mitch Urbina DO Active SIMVASTATIN 40 MG ORAL TABLET 1 tab daily at bedtime SIMVASTATIN 76666573283 Active Maria Rivas RN Active SIMVASTATIN 20 MG ORAL TABLET 1 tab daily at bedtime 2 SIMVASTATIN 67643762216 No Longer Active Mitch Urbina DO Active LOVENOX 100 MG/ML SUBCUTANEOUS SOLUTION One injection twice a da y ENOXAPARIN SODIUM 45684854706 No Longer Active Carmine Yusuf MD Active JANUVIA 50 MG ORAL TABLET Take one by mouth daily SITAGLIPTIN PHOSPHATE 00437149980 Active Renee Oconnoreder DE LA ROSA Active JANUVIA 100 MG ORAL TABLET 1/2 by mouth every day 2011 SITAGLIPTIN PHOSPHATE 70456977127 No Longer Active Bijal Segal RN Acti ve METFORMIN HCL 500 MG ORAL TABLET 2 by mouth twice daily METFORMIN HCL 64604844589 No Longer Active Renee Oconnor LPN Active COLCRYS 0.6 MG ORAL TABLET 1 po q 6 hours prn gout pain COLCHICINE 72149141410 No Longer Active Camila Reese Active LISINOPRIL 5 MG ORAL TABLET 1 by mouth every day 11/17 LISINOPRIL 80255258966 No Longer Active Nguyen Perez Active KLOR-CON 20 MEQ ORAL PACKET Take one by mouth daily 20 09/10/08 POTASSIUM CHLORIDE 86410123206 No Longer Active Nguyen Perez Active FUROSEMIDE 40 MG ORAL TABLET 1 by mouth daily F UROSEMIDE 65082342213 No Longer Active Nguyen Perez Active PROVIGIL 100 MG ORAL TABLET Take one by mouth daily 08/20/04 MODAFINIL 31897968097 No Longer Active Mitch Urbina DO Active BACTRIM DS 800-160 MG ORAL TABLET 1 tab by mouth twice daily 201 10/19/09 TRIMETHOPRIM-SULFAMETHOXAZOLE 63401089730 No Longer Active Elian Hays MD Active ADULT ASPIRIN LOW STRENGTH 81 MG ORAL TABLET DISINTEGR ATING 1 by mouth every daily ASPIRIN 43334964999 Active Mitch Urbina DO Ac tive BACTRIM DS 800-160 MG ORAL TABLET 1 tab by mouth twice daily 201 10/19/09 BACTRIM DS 800-160 MG ORAL TABLET 039829 TRIMETHOPRIM-SULFAMETHOXAZOLE Inactive PROVIGIL 100 MG ORAL TABLET Take one by mouth daily 20 08/20/04 PROVIGIL 100 MG ORAL TABLET 835822 MODAFINIL Inactive FUROSEMIDE 40 MG ORAL TABLET 1 by mouth daily FUROSEMIDE 40 MG ORAL TABLET 491869 FUROSEMIDE Inactive KLOR-CON 20 MEQ ORAL PACKET Take one by mouth daily 09/10/08 KLOR- CON 20 MEQ ORAL PACKET 4513871 POTASSIUM CHLORIDE Inactive LISINOPRIL 5 MG ORAL TABLET 1 by mouth every day 11/17 LISINOPRIL 5 MG ORAL TABLET 175376 LISINOPRIL Inactive COLCRYS 0.6 MG ORAL TABLET 1 po q 6 hours prn gout pain COLCRYS 0.6 MG ORAL TABLET 555836 COLCHICINE Inactive JANUVIA 100 MG ORAL TABLET 1/2 by mouth every day 2011 JANUVIA 100 MG ORAL TABLET SITAGLIPTIN PHOSPHATE Inactive SIMVASTATIN 20 MG ORAL TABLET 1 tab daily at bedtime 2 SIMVASTATIN 20 MG ORAL TABLET 717537 SIMVASTATIN Inactive COUMADIN 6 MG ORAL TABLET 1 by mouth every other day COUMADIN 6 MG ORAL TABLET 266627 WARFARIN SODIUM Inactive COUMADIN 5 MG ORAL TABLET 1 by mouth every other day 2 COUMADIN 5 MG ORAL TABLET 309969 WARFARIN SODIUM Inactive LISINOPRIL 20 MG ORAL TABLET 1 tab po at HS LISINOPRIL 20 MG ORAL TABLET 595188 LISINOPRIL Inactive LISINOPRIL-HYDROCHLOROTHIAZIDE 20-12.5 MG ORAL TABLET 1 tab by m outh daily LISINOPRIL-HYDROCHLOROTHIAZIDE 20-12.5 MG ORAL TABLET 782948 LISINOPRIL-HYDROCHLOROTHIAZIDE Inactive POLYTRIM 77659-7.1 UNIT/ML-% OPHTHALMIC SOLUTION 1 rui p in affected eye every 3 hours while awake x 7 days POLYTRIM 1000 0-0.1 UNIT/ML-% OPHTHALMIC SOLUTION 490996 POLYMYXIN B-TRIMETHOPRIM Inactive COUMADIN 4 MG ORAL TABLET 1 tablet daily COUMADIN 4 MG ORAL TABLET 186868 WARFARIN SODIUM Inactive CLONIDINE HCL 0.1 MG ORAL TABLET 1 po bid 7 days, then 1/2 t ab po bid 7 days CLONIDINE HCL 0.1 MG ORAL TABLET 771769 CLONIDIN E HCL Inactive ALLOPURINOL 300 MG ORAL TABLET Take 1 tablet by mouth daily 2012 ALLOPURINOL 300 MG ORAL TABLET 124929 ALLOPURINOL I nactive MECLIZINE HCL 25 MG ORAL TABLET 1 po tid 3 days, then 1/2 ta b tid 3 days MECLIZINE HCL 25 MG ORAL TABLET 658392 MECLIZINE HCL Inactive AMLODIPINE BESYLATE 5 MG ORAL TABLET 1 tablet by mouth daily 201 01/20/04 AMLODIPINE BESYLATE 5 MG ORAL TABLET 838965 AMLODIPINE BESYLATE Inactive KEFLEX 500 MG ORAL CAPSULE 1 po qid K EFLEX 500 MG ORAL CAPSULE 245045 CEPHALEXIN Inactive COLCRYS 0.6 MG ORAL TABLET 1 tab qid prn gout COLCRYS 0.6 MG ORAL TABLET 695733 COLCHICINE Inactive FAMOTIDINE 20 MG ORAL TABLET by mouth twice a day 2017 FAMOTIDINE 20 MG ORAL TABLET 549841 FAMOTIDINE Inactive GLIMEPIRIDE 2 MG ORAL TABLET 1 po BID GLIMEPIRIDE 2 MG ORAL TABLET 941933 GLIMEPIRIDE Inactive LOVENOX 100 MG/ML SUBCUTANEOUS SOLUTION One injection twice a da y LOVENOX 100 MG/ML SUBCUTANEOUS SOLUTION 489166 ENOXAPAR IN SODIUM Inactive PREDNISONE 20 MG ORAL TABLET 2 tabs daily for 3 days 1 tab d aily for 3 days PREDNISONE 20 MG ORAL TABLET 907690 PREDNISONE Inactive Advance Directives Directive Description Start [...] Panel - Chemistry sodium, serum 140 mmol/L 190-070 1838/11/01 carbon dioxide, venous blood 28.6 mmol/L 21.0-32 [...] mg/dL Encounters Code Encounter Date Provider Facility CPT-93507 [id number] Vst-Est Level IV 16:21:22 CDT Bru ce W Carlitos [facility] CPT-77659 Level 3 Est. Patient 15:18:36 CDT Becky Se ll ANNIE [facility] CPT-10903 [id number] Vst-Est Level IV 10:06:35 CDT Bru robinson Urbina [facility] CPT-85321 [id number] Vst-Est Level IV 10:52:00 SURVEYOR INSTRUMENT ASSISTANT Stephy Urbina [facility] CPT-08246 Level 3 Est. Patient 18:25:53 CDT Mitch Ambrose Nona luis [facility] CPT-27149 Level 3 Est. Patient 19:43:34 CDT Mitch Arnol luis [facility] CPT-38736 Level 4 Est. Patient 09:30:18 CDT Mitch Castellano janelle [facility] CPT-29023 Level 3 Est. Patient 15:10:14 CDT Joe yunangela [facility] CPT-71321 Level 3 Est. Patient 15:03:46 CDT Joe Gomez anh [facility] CPT-85515 Level 3 Est. Patient 14:21:06 CDT Mitch Arnol luis [facility] CPT-89791 Level 3 Est. Patient 14:52:06 CDT Joe Gomez anh [facility] CPT-38053 Level 3 Est. Patient 09:34:30 SURVEYOR INSTRUMENT ASSISTANT Mitch Arnol luis [facility] CPT-58427 Level 3 Est. Patient 09:37:15 CDT Mitch Arnol luis [facility] CPT-20317 Level 3 Est. Patient 17:01:00 SURVEYOR INSTRUMENT ASSISTANT Mitch Arnol Nona luis [facility] CPT-21257 Level 3 Est. Patient 13:53:19 SURVEYOR INSTRUMENT ASSISTANT Mitch luis [facility] CPT-13874 Level 3 Est. Patient 19:19:37 SURVEYOR INSTRUMENT ASSISTANT Mitch Castellano janelle [facility] CPT-47031 Level 3 Est. Patient 13:25:53 SURVEYOR INSTRUMENT ASSISTANT Tavo toure MD [facility] CPT-92868 Level 3 Est. Patient 18:17:28 CDT Mitch luis [facility] CPT-97173 Level 3 Est. Patient 15:22:57 CDT Mitch luis [facility] CPT-54809 Level 3 Est. Patient 18:21:50 CDT Mitch luis [facility] CPT-22128 Level 3 Est. Patient 18:20:38 CDT Mitch luis [facility] CPT-95952 Level 3 Est. Patient 15:37:55 CDT Mitch luis [facility] CPT-68815 Level 2 Est. Patient 15:54:44 CDT Carmine benton MD [facility]-94653 Level 3 Est. Patient 21:46:01 SURVEYOR INSTRUMENT ASSISTANT Mitch luis [facility] CPT-19017 Level 3 Est. Patient 22:15:50 CDT Mitch luis [facility] CPT-82528 Level 3 Est. Patient 10:48:15 CDT Mitch luis [facility] CPT-68390 Level 3 Est. Patient 23:20:57 CDT Tavo toure MD [facility] CPT-68039 Level 3 Est. Patient 16:26:13 CDT Mitch luis [facility] Procedures Code Procedure Name Date Entry Date Standard Desc ription CPT-23272 Venipuncture Draw Fee 08:26:21 CDT CPT-21925 Venous Duplex Left Leg XRAY USE ONLY 10:43:10 CDT CPT-59840 Venipuncture Draw Fee 17:04:55 CDT CPT-85139 Venipuncture Draw Fee 17:20:50 CDT CPT-15364 Venipuncture Draw Fee 18:00:48 CDT CPT-37507 Venipuncture Draw Fee 14:56:20 CDT CPT-JTINJ Asp/Joint Injection 18:47:02 CDT CPT-70577 Venipuncture Draw Fee 09:26:17 CDT CPT-84100 PT/INR - LAB USE ONLY 13:32:49 SURVEYOR INSTRUMENT ASSISTANT CPT-43900 Venipuncture Draw Fee 13:32:49 SURVEYOR INSTRUMENT ASSISTANT CPT-21524 PT/INR - LAB USE ONLY 10:34:49 SURVEYOR INSTRUMENT ASSISTANT CPT-97613 Venipuncture Draw Fee 10:34:48 SURVEYOR INSTRUMENT ASSISTANT CPT-29419 PT/INR - LAB USE ONLY 09:22:03 SURVEYOR INSTRUMENT ASSISTANT CPT-43487 Venipuncture Draw Fee 09:22:02 SURVEYOR INSTRUMENT ASSISTANT CPT-67635 Hemoccult IFOBT - LAB USE ONLY 10:27:22 CDT CPT-34761 Venipuncture Draw Fee 08:27:08 CDT CPT-83070 Liver Profile - LAB USE ONLY 08:27:07 CDT 2 CPT-82032 Microalbumin - LAB USE ONLY 08:27:07 CDT 20 25/05/09 CPT-72661 PT/INR - LAB USE ONLY 08:27:07 CDT CPT-86583 HGBA1C - LAB USE ONLY 08:27:07 CDT CPT-12773 CBC - LAB USE ONLY 08:27:07 CDT CPT-52007 Venipuncture Draw Fee 11:09:14 CDT CPT-88804 Venipuncture Draw Fee 08:32:21 SURVEYOR INSTRUMENT ASSISTANT CPT-43359 Venipuncture Draw Fee 09:38:56 SURVEYOR INSTRUMENT ASSISTANT CPT-32289 No Charge Offi Visit 21:36:07 CDT 1 CPT-79816 Venipuncture Draw Fee 10:13:28 SURVEYOR INSTRUMENT ASSISTANT CPT-59113 Venipuncture Draw Fee 08:31:11 CDT CPT-90120 Aspir/Inject Med Joint 18:17:28 CDT CPT-37282 Venipuncture Draw Fee 10:13:30 CDT CPT-32364 Venipuncture Draw Fee 08:31:43 SURVEYOR INSTRUMENT ASSISTANT CPT-JTINJ Joint Injection 18:34:50 CDT CPT-14801 Knee 3V 12:25:09 CDT CPT-72433 Venipuncture Draw Fee 12:15:57 CDT CPT-060 Medical Surveillance Exam 21:31:43 CDT 2011 CPT-62181 Venipuncture Draw Fee 08:32:05 SURVEYOR INSTRUMENT ASSISTANT CPT-OV Office Visit 18:19:06 CDT
--- OUTSIDE RECORDS SUMMARY | 2020-01-18 13:54 | XMS REPORT | Clinical Summary ---
Author Author Admin, Mitch Leon Organization [facility] [employer] Address Unknown Phone Unavailable Allergies, Adverse Reactions, [...] TO EQUAL 7 MG DAILY WARFARIN SODIUM 93738885684 Active Maria Briones Active WARFARIN SODIUM 5 MG TABS TAKE 1 TABLET DAILY W ARFARIN SODIUM 62645735582 Active Allison PERERA Active KEFLEX 500 MG ORAL CAPSULE 1 capsule by mouth three times da rocky x10 days CEPHALEXIN 80837540567 Active Maria Rivas RN Active METOPROLOL TARTRATE TABS 50MG TAKE 1 TABLET TWICE A DAY ([facility] WORK) METOPROLOL TARTRATE 02310618390 Active Maria Briones Active DOXAZOSIN MESYLATE 2 MG ORAL TABLET 1 po q day for pr ostate and blood pressure DOXAZOSIN MESYLATE 04820420070 Active Mitch Urbina DO Active LOSARTAN TABS 100MG TAKE 1 TABLET DAILY FOR BLOOD PRESSURE LOSARTAN POTASSIUM 11729321855 Active Maria Rivas RN Active FLUTICASONE PROPIONATE 50 MCG/ACT NASAL SUSPENSION 1 s pray each nostril twice daily for 1 week, then once daily FLUTICASONE HI OPIONATE 93920103986 Active eBcky Mohamud APRN Active PREDNISONE 20 MG ORAL TABLET 2 tabs daily for 3 days 1 tab d aily for 3 days PREDNISONE 19289982434 No Longer Active Becky Mohamud APRN Active MINOXIDIL 2.5 MG ORAL TABLET 1 tablet twice daily for high b lood pressure MINOXIDIL 08161863193 Active Mitch Urbina DO Ac tive METFORMIN HCL ER 500 MG ORAL TABLET EXTENDED RELEASE 2 4 HOUR 2 tablets by mouth twice daily METFORMIN HCL 44344544083 Active Mitch Urbina DO Active GLIMEPIRIDE 4 MG ORAL TABLET 1 tablet by mouth twice daily f or diabetes GLIMEPIRIDE 37935313178 Active Mitch Urbina DO Active GLIMEPIRIDE 2 MG ORAL TABLET 1 po BID GLIMEPI RIDE 67743497349 No Longer Active Mitch Urbina DO Active AMLODIPINE BESYLATE 5 MG ORAL TABLET 1 tablet by mouth daily AMLODIPINE BESYLATE 60230968885 Active Mitch Urbina DO Active PROVIGIL 200 MG ORAL TABLET 1/2 tab po q day MODA FINIL 69720139949 Active Maria Rivas RN Active FAMOTIDINE 20 MG ORAL TABLET by mouth twice a day 2017 FAMOTIDINE 69595195646 No Longer Active Mitch Urbina DO Active COLCRYS 0.6 MG ORAL TABLET 1 tab qid prn gout C OLCHICINE 76292064766 No Longer Active Mitch Urbina DO Active KEFLEX 500 MG ORAL CAPSULE 1 po qid CEPHALEXI N 55907756038 No Longer Active Mitch Urbina DO Active AMLODIPINE BESYLATE 5 MG ORAL TABLET 1 tablet by mouth daily 201 01/20/04 AMLODIPINE BESYLATE 38158083459 No Longer Active Joe fulton APRN Active MITIGARE 0.6 MG ORAL CAPSULE 2 capsules at onset of go ut pain, then take one capsule at 1 hour if symptoms persist. COLCHICINE 59 621601939 Active Mitch Urbina DO Active INVOKANA 100 MG ORAL TABLET 1 tablet orally daily CANAGLIFLOZIN 00210591335 Active Mitch Urbina DO Active MECLIZINE HCL 25 MG ORAL TABLET 1 po tid 3 days, then 1/2 ta b tid 3 days MECLIZINE HCL 05170376840 No Longer Active Corey SEGURA Active ALLOPURINOL 300 MG ORAL TABLET Take 1 tablet by mouth daily 2012 ALLOPURINOL 68825000920 No Longer Active Corey SEGURA Active CLONIDINE HCL 0.1 MG ORAL TABLET 1 po bid 7 days, then 1/2 t ab po bid 7 days CLONIDINE HCL 93415096366 No Longer Active Corey SEGURA Active COUMADIN 4 MG ORAL TABLET 1 tablet daily WARFAR IN SODIUM 51218813000 No Longer Active Corey SEGURA Active POLYTRIM 32640-8.1 UNIT/ML-% OPHTHALMIC SOLUTION 1 rui p in affected eye every 3 hours while awake x 7 days POLYMYXIN B-TRIMETHOP RIM 06175135138 No Longer Active Corey SEGURA Active LOSARTAN POTASSIUM-HCTZ 100-12.5 MG ORAL TABLET 1 by m outh daily for high blood pressure LOSARTAN POTASSIUM-HCTZ 90344146331 No Longer A ctive Mitch Urbina DO Active LISINOPRIL-HYDROCHLOROTHIAZIDE 20-12.5 MG ORAL TABLET 1 tab by m outh daily LISINOPRIL-HYDROCHLOROTHIAZIDE 28929513536 No Longer Active Mitch Urbina DO Active LISINOPRIL 20 MG ORAL TABLET 1 tab po at HS LIS INOPRIL 06417269276 No Longer Active Mitch Urbina DO Active COUMADIN 5 MG ORAL TABLET 1 by mouth every other day 2 WARFARIN SODIUM 77497832666 No Longer Active Mitch Urbina DO Active COUMADIN 6 MG ORAL TABLET 1 by mouth every other day 2 WARFARIN SODIUM 67276869098 No Longer Active Mitch Urbina DO Active SIMVASTATIN 40 MG ORAL TABLET 1 tab daily at bedtime SIMVASTATIN 95770445384 Active Maria Rivas RN Active SIMVASTATIN 20 MG ORAL TABLET 1 tab daily at bedtime 2 SIMVASTATIN 61790657593 No Longer Active Mitch Urbina DO Active LOVENOX 100 MG/ML SUBCUTANEOUS SOLUTION One injection twice a da y ENOXAPARIN SODIUM 27413571309 No Longer Active Carmine Yusuf MD Active JANUVIA 50 MG ORAL TABLET Take one by mouth daily SITAGLIPTIN PHOSPHATE 56893655170 Active Renee Oconnoreder DE LA ROSA Active JANUVIA 100 MG ORAL TABLET 1/2 by mouth every day 2011 SITAGLIPTIN PHOSPHATE 89973563576 No Longer Active Bijal Segal RN Acti ve METFORMIN HCL 500 MG ORAL TABLET 2 by mouth twice daily METFORMIN HCL 26184590053 No Longer Active Renee Oconnor LPN Active COLCRYS 0.6 MG ORAL TABLET 1 po q 6 hours prn gout pain COLCHICINE 62611354392 No Longer Active Camila Reese Active LISINOPRIL 5 MG ORAL TABLET 1 by mouth every day 11/17 LISINOPRIL 91188459126 No Longer Active Nguyen Perez Active KLOR-CON 20 MEQ ORAL PACKET Take one by mouth daily 20 09/10/08 POTASSIUM CHLORIDE 01280672502 No Longer Active Nguyen Perez Active FUROSEMIDE 40 MG ORAL TABLET 1 by mouth daily F UROSEMIDE 67440960313 No Longer Active Nguyen Perez Active PROVIGIL 100 MG ORAL TABLET Take one by mouth daily 08/20/04 MODAFINIL 49328872165 No Longer Active Mitch Urbina DO Active BACTRIM DS 800-160 MG ORAL TABLET 1 tab by mouth twice daily 201 10/19/09 TRIMETHOPRIM-SULFAMETHOXAZOLE 97941478201 No Longer Active Elian Hyas MD Active ADULT ASPIRIN LOW STRENGTH 81 MG ORAL TABLET DISINTEGR ATING 1 by mouth every daily ASPIRIN 90109941531 Active Mitch Urbina DO Ac tive BACTRIM DS 800-160 MG ORAL TABLET 1 tab by mouth twice daily 201 10/19/09 BACTRIM DS 800-160 MG ORAL TABLET 935204 TRIMETHOPRIM-SULFAMETHOXAZOLE Inactive PROVIGIL 100 MG ORAL TABLET Take one by mouth daily 20 08/20/04 PROVIGIL 100 MG ORAL TABLET 816423 MODAFINIL Inactive FUROSEMIDE 40 MG ORAL TABLET 1 by mouth daily FUROSEMIDE 40 MG ORAL TABLET 583748 FUROSEMIDE Inactive KLOR-CON 20 MEQ ORAL PACKET Take one by mouth daily 09/10/08 KLOR- CON 20 MEQ ORAL PACKET 9682782 POTASSIUM CHLORIDE Inactive LISINOPRIL 5 MG ORAL TABLET 1 by mouth every day 11/17 LISINOPRIL 5 MG ORAL TABLET 405915 LISINOPRIL Inactive COLCRYS 0.6 MG ORAL TABLET 1 po q 6 hours prn gout pain COLCRYS 0.6 MG ORAL TABLET 889433 COLCHICINE Inactive JANUVIA 100 MG ORAL TABLET 1/2 by mouth every day 2011 JANUVIA 100 MG ORAL TABLET SITAGLIPTIN PHOSPHATE Inactive SIMVASTATIN 20 MG ORAL TABLET 1 tab daily at bedtime 2 SIMVASTATIN 20 MG ORAL TABLET 316237 SIMVASTATIN Inactive COUMADIN 6 MG ORAL TABLET 1 by mouth every other day COUMADIN 6 MG ORAL TABLET 587516 WARFARIN SODIUM Inactive COUMADIN 5 MG ORAL TABLET 1 by mouth every other day 2 COUMADIN 5 MG ORAL TABLET 623861 WARFARIN SODIUM Inactive LISINOPRIL 20 MG ORAL TABLET 1 tab po at HS LISINOPRIL 20 MG ORAL TABLET 168313 LISINOPRIL Inactive LISINOPRIL-HYDROCHLOROTHIAZIDE 20-12.5 MG ORAL TABLET 1 tab by m outh daily LISINOPRIL-HYDROCHLOROTHIAZIDE 20-12.5 MG ORAL TABLET 454231 LISINOPRIL-HYDROCHLOROTHIAZIDE Inactive POLYTRIM 23583-6.1 UNIT/ML-% OPHTHALMIC SOLUTION 1 rui p in affected eye every 3 hours while awake x 7 days POLYTRIM 1000 0-0.1 UNIT/ML-% OPHTHALMIC SOLUTION 250161 POLYMYXIN B-TRIMETHOPRIM Inactive COUMADIN 4 MG ORAL TABLET 1 tablet daily COUMADIN 4 MG ORAL TABLET 589527 WARFARIN SODIUM Inactive CLONIDINE HCL 0.1 MG ORAL TABLET 1 po bid 7 days, then 1/2 t ab po bid 7 days CLONIDINE HCL 0.1 MG ORAL TABLET 683551 CLONIDIN E HCL Inactive ALLOPURINOL 300 MG ORAL TABLET Take 1 tablet by mouth daily 2012 ALLOPURINOL 300 MG ORAL TABLET 871429 ALLOPURINOL I nactive MECLIZINE HCL 25 MG ORAL TABLET 1 po tid 3 days, then 1/2 ta b tid 3 days MECLIZINE HCL 25 MG ORAL TABLET 289598 MECLIZINE HCL Inactive AMLODIPINE BESYLATE 5 MG ORAL TABLET 1 tablet by mouth daily 201 01/20/04 AMLODIPINE BESYLATE 5 MG ORAL TABLET 370658 AMLODIPINE BESYLATE Inactive KEFLEX 500 MG ORAL CAPSULE 1 po qid K EFLEX 500 MG ORAL CAPSULE 493854 CEPHALEXIN Inactive COLCRYS 0.6 MG ORAL TABLET 1 tab qid prn gout COLCRYS 0.6 MG ORAL TABLET 409028 COLCHICINE Inactive FAMOTIDINE 20 MG ORAL TABLET by mouth twice a day 2017 FAMOTIDINE 20 MG ORAL TABLET 922462 FAMOTIDINE Inactive GLIMEPIRIDE 2 MG ORAL TABLET 1 po BID GLIMEPIRIDE 2 MG ORAL TABLET 878967 GLIMEPIRIDE Inactive LOVENOX 100 MG/ML SUBCUTANEOUS SOLUTION One injection twice a da y LOVENOX 100 MG/ML SUBCUTANEOUS SOLUTION 948193 ENOXAPAR IN SODIUM Inactive PREDNISONE 20 MG ORAL TABLET 2 tabs daily for 3 days 1 tab d aily for 3 days PREDNISONE 20 MG ORAL TABLET 819292 PREDNISONE Inactive Advance Directives Directive Description Start [...] Panel - Chemistry sodium, serum 140 mmol/L 923-299 9422/11/01 carbon dioxide, venous blood 28.6 mmol/L 21.0-32 [...] mg/dL Encounters Code Encounter Date Provider Facility CPT-73246 70825-Dln Vst-Est Level IV 16:21:22 CDT Bru ce W Carlitos DO [facility] CPT-52222 Level 3 Est. Patient 15:18:36 CDT Becky Se ll ANNIE [facility] CPT-67829 30564-Gyd Vst-Est Level IV 10:06:35 CDT Bru robinson Urbina [facility] CPT-12285 63364-Doq Vst-Est Level IV 10:52:00 COMMERCIAL REVIEW APPRAISER Stephy Urbina [facility] CPT-73812 Level 3 Est. Patient 18:25:53 CDT Mitch Arnol luis [facility] CPT-31601 Level 3 Est. Patient 19:43:34 CDT Mitch Arnol luis [facility] CPT-37964 Level 4 Est. Patient 09:30:18 CDT Mitch Castellano janelle [facility] CPT-68345 Level 3 Est. Patient 15:10:14 CDT Joe yunangela [facility] CPT-35731 Level 3 Est. Patient 15:03:46 CDT Joe Gomez anh [facility] CPT-60612 Level 3 Est. Patient 14:21:06 CDT Mitch Arnol luis [facility] CPT-90135 Level 3 Est. Patient 14:52:06 CDT Joe Goemz anh [facility] CPT-46859 Level 3 Est. Patient 09:34:30 COMMERCIAL REVIEW APPRAISER Mitch Arnol luis [facility] CPT-08281 Level 3 Est. Patient 09:37:15 CDT Mitch Arnol luis [facility] CPT-62456 Level 3 Est. Patient 17:01:00 COMMERCIAL REVIEW APPRAISER Mitch Arnol luis [facility] CPT-96979 Level 3 Est. Patient 13:53:19 COMMERCIAL REVIEW APPRAISER Mitch luis [facility] CPT-32448 Level 3 Est. Patient 19:19:37 COMMERCIAL REVIEW APPRAISER Mitch Arnol luis [facility] CPT-67501 Level 3 Est. Patient 13:25:53 COMMERCIAL REVIEW APPRAISER Tavo toure MD [facility] CPT-43131 Level 3 Est. Patient 18:17:28 CDT Mitch luis [facility] CPT-09343 Level 3 Est. Patient 15:22:57 CDT Mitch luis [facility] CPT-79000 Level 3 Est. Patient 18:21:50 CDT Mitch luis [facility] CPT-73483 Level 3 Est. Patient 18:20:38 CDT Mitch luis [facility] CPT-90293 Level 3 Est. Patient 15:37:55 CDT Mitch luis [facility] CPT-82166 Level 2 Est. Patient 15:54:44 CDT Carmine benton MD [facility]-09747 Level 3 Est. Patient 21:46:01 COMMERCIAL REVIEW APPRAISER Mitch luis [facility] CPT-64948 Level 3 Est. Patient 22:15:50 CDT Mitch luis [facility] CPT-89318 Level 3 Est. Patient 10:48:15 CDT Mitch luis [facility] CPT-77330 Level 3 Est. Patient 23:20:57 CDT Tavo toure MD [facility] CPT-25541 Level 3 Est. Patient 16:26:13 CDT Mitch luis [facility] Procedures Code Procedure Name Date Entry Date Standard Desc ription CPT-11456 Venipuncture Draw Fee 08:26:21 CDT CPT-61153 Venous Duplex Left Leg XRAY USE ONLY 10:43:10 CDT CPT-03403 Venipuncture Draw Fee 17:04:55 CDT CPT-98672 Venipuncture Draw Fee 17:20:50 CDT CPT-70312 Venipuncture Draw Fee 18:00:48 CDT CPT-06706 Venipuncture Draw Fee 14:56:20 CDT CPT-JTINJ Asp/Joint Injection 18:47:02 CDT CPT-14549 Venipuncture Draw Fee 09:26:17 CDT CPT-80024 PT/INR - LAB USE ONLY 13:32:49 COMMERCIAL REVIEW APPRAISER CPT-14349 Venipuncture Draw Fee 13:32:49 COMMERCIAL REVIEW APPRAISER CPT-93013 PT/INR - LAB USE ONLY 10:34:49 COMMERCIAL REVIEW APPRAISER CPT-52510 Venipuncture Draw Fee 10:34:48 COMMERCIAL REVIEW APPRAISER CPT-45751 PT/INR - LAB USE ONLY 09:22:03 COMMERCIAL REVIEW APPRAISER CPT-03072 Venipuncture Draw Fee 09:22:02 COMMERCIAL REVIEW APPRAISER CPT-37513 Hemoccult IFOBT - LAB USE ONLY 10:27:22 CDT CPT-22024 Venipuncture Draw Fee 08:27:08 CDT CPT-87951 Liver Profile - LAB USE ONLY 08:27:07 CDT 2 CPT-27464 Microalbumin - LAB USE ONLY 08:27:07 CDT 20 25/05/09 CPT-48140 PT/INR - LAB USE ONLY 08:27:07 CDT CPT-87798 HGBA1C - LAB USE ONLY 08:27:07 CDT CPT-89959 CBC - LAB USE ONLY 08:27:07 CDT CPT-07946 Venipuncture Draw Fee 11:09:14 CDT CPT-35046 Venipuncture Draw Fee 08:32:21 COMMERCIAL REVIEW APPRAISER CPT-47387 Venipuncture Draw Fee 09:38:56 COMMERCIAL REVIEW APPRAISER CPT-81128 No Charge Offi Visit 21:36:07 CDT 1 CPT-67143 Venipuncture Draw Fee 10:13:28 COMMERCIAL REVIEW APPRAISER CPT-44187 Venipuncture Draw Fee 08:31:11 CDT CPT-04920 Aspir/Inject Med Joint 18:17:28 CDT CPT-48242 Venipuncture Draw Fee 10:13:30 CDT CPT-10723 Venipuncture Draw Fee 08:31:43 COMMERCIAL REVIEW APPRAISER CPT-JTINJ Joint Injection 18:34:50 CDT CPT-33842 Knee 3V 12:25:09 CDT CPT-69840 Venipuncture Draw Fee 12:15:57 CDT CPT-060 Medical Surveillance Exam 21:31:43 CDT 2011 CPT-52919 Venipuncture Draw Fee 08:32:05 COMMERCIAL REVIEW APPRAISER CPT-OV Office Visit 18:19:06 CDT
--- OUTSIDE RECORDS SUMMARY | 2020-01-18 13:54 | XMS REPORT | Clinical Summary ---
Author Author Admin, Mitch Leon Organization [facility] Address Unknown Phone Unavailable Allergies, Adverse Reactions, [...] Coronary atherosclerosis of unspecified type of vessel, [place] or graft EDEMA 782.3 Resolved Mitch Urbina [...] TO EQUAL 7 MG DAILY WARFARIN SODIUM 01085858197 Active Maria Briones Active WARFARIN SODIUM 5 MG TABS TAKE 1 TABLET DAILY W ARFARIN SODIUM 13258513665 Active Allison PERERA Active KEFLEX 500 MG ORAL CAPSULE 1 capsule by mouth three times da rocky x10 days CEPHALEXIN 60904038431 Active Maria Rivas RN Active METOPROLOL TARTRATE TABS 50MG TAKE 1 TABLET TWICE A DAY ([facility]) METOPROLOL TARTRATE 70463934060 Active Maria Briones Active DOXAZOSIN MESYLATE 2 MG ORAL TABLET 1 po q day for pr ostate and blood pressure DOXAZOSIN MESYLATE 87390728526 Active Mitch Urbina DO Active LOSARTAN TABS 100MG TAKE 1 TABLET DAILY FOR BLOOD PRESSURE LOSARTAN POTASSIUM 50242257057 Active Maria Rivas RN Active FLUTICASONE PROPIONATE 50 MCG/ACT NASAL SUSPENSION 1 s pray each nostril twice daily for 1 week, then once daily FLUTICASONE [place] OPIONATE 82124043152 Active Becky Mohamud APRN Active PREDNISONE 20 MG ORAL TABLET 2 tabs daily for 3 days 1 tab d aily for 3 days PREDNISONE 03929650359 No Longer Active Becky Mohamud APRN Active MINOXIDIL 2.5 MG ORAL TABLET 1 tablet twice daily for high b lood pressure MINOXIDIL 73512164259 Active Mitch Urbina DO Ac tive METFORMIN HCL ER 500 MG ORAL TABLET EXTENDED RELEASE 2 4 HOUR 2 tablets by mouth twice daily METFORMIN HCL 19548134671 Active Mitch Urbina DO Active GLIMEPIRIDE 4 MG ORAL TABLET 1 tablet by mouth twice daily f or diabetes GLIMEPIRIDE 03904311531 Active Mitch Urbina DO Active GLIMEPIRIDE 2 MG ORAL TABLET 1 po BID GLIMEPI RIDE 64803577755 No Longer Active Mitch Urbina DO Active AMLODIPINE BESYLATE 5 MG ORAL TABLET 1 tablet by mouth daily AMLODIPINE BESYLATE 92727247044 Active Mitch Urbina DO Active PROVIGIL 200 MG ORAL TABLET 1/2 tab po q day MODA FINIL 82252587493 Active Maria Rivas RN Active FAMOTIDINE 20 MG ORAL TABLET by mouth twice a day 2017 FAMOTIDINE 25363036627 No Longer Active Mitch Urbina DO Active COLCRYS 0.6 MG ORAL TABLET 1 tab qid prn gout C OLCHICINE 96597836610 No Longer Active Mitch Urbina DO Active KEFLEX 500 MG ORAL CAPSULE 1 po qid CEPHALEXI N 08180855227 No Longer Active Mitch Urbina DO Active AMLODIPINE BESYLATE 5 MG ORAL TABLET 1 tablet by mouth daily 201 01/20/04 AMLODIPINE BESYLATE 42383694697 No Longer Active Joe fulton APRN Active MITIGARE 0.6 MG ORAL CAPSULE 2 capsules at onset of go ut pain, then take one capsule at 1 hour if symptoms persist. COLCHICINE 59 287060776 Active Mitch Urbina DO Active INVOKANA 100 MG ORAL TABLET 1 tablet orally daily CANAGLIFLOZIN 41106269701 Active Mitch Urbina DO Active MECLIZINE HCL 25 MG ORAL TABLET 1 po tid 3 days, then 1/2 ta b tid 3 days MECLIZINE HCL 62781087390 No Longer Active Corey SEGURA Active ALLOPURINOL 300 MG ORAL TABLET Take 1 tablet by mouth daily 2012 ALLOPURINOL 52093323531 No Longer Active Corey SEGURA Active CLONIDINE HCL 0.1 MG ORAL TABLET 1 po bid 7 days, then 1/2 t ab po bid 7 days CLONIDINE HCL 68197240284 No Longer Active Corey SEGURA Active COUMADIN 4 MG ORAL TABLET 1 tablet daily WARFAR IN SODIUM 86086890846 No Longer Active Corey SEGURA Active POLYTRIM 48577-6.1 UNIT/ML-% OPHTHALMIC SOLUTION 1 rui p in affected eye every 3 hours while awake x 7 days POLYMYXIN B-TRIMETHOP RIM 55273767030 No Longer Active Corey SEGURA Active LOSARTAN POTASSIUM-HCTZ 100-12.5 MG ORAL TABLET 1 by m outh daily for high blood pressure LOSARTAN POTASSIUM-HCTZ 72138929091 No Longer A ctive Mitch Urbina DO Active LISINOPRIL-HYDROCHLOROTHIAZIDE 20-12.5 MG ORAL TABLET 1 tab by m outh daily LISINOPRIL-HYDROCHLOROTHIAZIDE 18271558990 No Longer Active Mitch Urbina DO Active LISINOPRIL 20 MG ORAL TABLET 1 tab po at HS LIS INOPRIL 10026686462 No Longer Active Mitch Urbina DO Active COUMADIN 5 MG ORAL TABLET 1 by mouth every other day 2 WARFARIN SODIUM 98119532483 No Longer Active Mitch Urbina DO Active COUMADIN 6 MG ORAL TABLET 1 by mouth every other day 2 WARFARIN SODIUM 79700884722 No Longer Active Mitch Urbina DO Active SIMVASTATIN 40 MG ORAL TABLET 1 tab daily at bedtime SIMVASTATIN 92721714576 Active Maria Rivas RN Active SIMVASTATIN 20 MG ORAL TABLET 1 tab daily at bedtime 2 SIMVASTATIN 05162429475 No Longer Active Mitch Urbina DO Active LOVENOX 100 MG/ML SUBCUTANEOUS SOLUTION One injection twice a da y ENOXAPARIN SODIUM 41717947765 No Longer Active Carmine Yusuf MD Active JANUVIA 50 MG ORAL TABLET Take one by mouth daily SITAGLIPTIN PHOSPHATE 56834654959 Active Renee Oconnoreder DE LA ROSA Active JANUVIA 100 MG ORAL TABLET 1/2 by mouth every day 2011 SITAGLIPTIN PHOSPHATE 44445796565 No Longer Active Bijal Segal RN Acti ve METFORMIN HCL 500 MG ORAL TABLET 2 by mouth twice daily METFORMIN HCL 81287101420 No Longer Active Renee Oconnor LPN Active COLCRYS 0.6 MG ORAL TABLET 1 po q 6 hours prn gout pain COLCHICINE 72923083313 No Longer Active Camila Reese Active LISINOPRIL 5 MG ORAL TABLET 1 by mouth every day 11/17 LISINOPRIL 27093877333 No Longer Active Nguyen Perez Active KLOR-CON 20 MEQ ORAL PACKET Take one by mouth daily 20 09/10/08 POTASSIUM CHLORIDE 84456076846 No Longer Active Nguyen Perez Active FUROSEMIDE 40 MG ORAL TABLET 1 by mouth daily F UROSEMIDE 24796283298 No Longer Active Nguyen Perez Active PROVIGIL 100 MG ORAL TABLET Take one by mouth daily 08/20/04 MODAFINIL 37723301339 No Longer Active Mitch Urbina DO Active BACTRIM DS 800-160 MG ORAL TABLET 1 tab by mouth twice daily 201 10/19/09 TRIMETHOPRIM-SULFAMETHOXAZOLE 92895264740 No Longer Active Elian Hays MD Active ADULT ASPIRIN LOW STRENGTH 81 MG ORAL TABLET DISINTEGR ATING 1 by mouth every daily ASPIRIN 87658064245 Active Mitch Urbina DO Ac tive BACTRIM DS 800-160 MG ORAL TABLET 1 tab by mouth twice daily 201 10/19/09 BACTRIM DS 800-160 MG ORAL TABLET 737497 TRIMETHOPRIM-SULFAMETHOXAZOLE Inactive PROVIGIL 100 MG ORAL TABLET Take one by mouth daily 20 08/20/04 PROVIGIL 100 MG ORAL TABLET 302184 MODAFINIL Inactive FUROSEMIDE 40 MG ORAL TABLET 1 by mouth daily FUROSEMIDE 40 MG ORAL TABLET 892945 FUROSEMIDE Inactive KLOR-CON 20 MEQ ORAL PACKET Take one by mouth daily 09/10/08 KLOR- CON 20 MEQ ORAL PACKET 5867915 POTASSIUM CHLORIDE Inactive LISINOPRIL 5 MG ORAL TABLET 1 by mouth every day 11/17 LISINOPRIL 5 MG ORAL TABLET 499187 LISINOPRIL Inactive COLCRYS 0.6 MG ORAL TABLET 1 po q 6 hours prn gout pain COLCRYS 0.6 MG ORAL TABLET 047107 COLCHICINE Inactive JANUVIA 100 MG ORAL TABLET 1/2 by mouth every day 2011 JANUVIA 100 MG ORAL TABLET SITAGLIPTIN PHOSPHATE Inactive SIMVASTATIN 20 MG ORAL TABLET 1 tab daily at bedtime 2 SIMVASTATIN 20 MG ORAL TABLET 720259 SIMVASTATIN Inactive COUMADIN 6 MG ORAL TABLET 1 by mouth every other day COUMADIN 6 MG ORAL TABLET 017446 WARFARIN SODIUM Inactive COUMADIN 5 MG ORAL TABLET 1 by mouth every other day 2 COUMADIN 5 MG ORAL TABLET 920102 WARFARIN SODIUM Inactive LISINOPRIL 20 MG ORAL TABLET 1 tab po at HS LISINOPRIL 20 MG ORAL TABLET 349292 LISINOPRIL Inactive LISINOPRIL-HYDROCHLOROTHIAZIDE 20-12.5 MG ORAL TABLET 1 tab by m outh daily LISINOPRIL-HYDROCHLOROTHIAZIDE 20-12.5 MG ORAL TABLET 702516 LISINOPRIL-HYDROCHLOROTHIAZIDE Inactive POLYTRIM 10341-6.1 UNIT/ML-% OPHTHALMIC SOLUTION 1 rui p in affected eye every 3 hours while awake x 7 days POLYTRIM 1000 0-0.1 UNIT/ML-% OPHTHALMIC SOLUTION 578571 POLYMYXIN B-TRIMETHOPRIM Inactive COUMADIN 4 MG ORAL TABLET 1 tablet daily COUMADIN 4 MG ORAL TABLET 721635 WARFARIN SODIUM Inactive CLONIDINE HCL 0.1 MG ORAL TABLET 1 po bid 7 days, then 1/2 t ab po bid 7 days CLONIDINE HCL 0.1 MG ORAL TABLET 565288 CLONIDIN E HCL Inactive ALLOPURINOL 300 MG ORAL TABLET Take 1 tablet by mouth daily 2012 ALLOPURINOL 300 MG ORAL TABLET 245234 ALLOPURINOL I nactive MECLIZINE HCL 25 MG ORAL TABLET 1 po tid 3 days, then 1/2 ta b tid 3 days MECLIZINE HCL 25 MG ORAL TABLET 509832 MECLIZINE HCL Inactive AMLODIPINE BESYLATE 5 MG ORAL TABLET 1 tablet by mouth daily 201 01/20/04 AMLODIPINE BESYLATE 5 MG ORAL TABLET 139529 AMLODIPINE BESYLATE Inactive KEFLEX 500 MG ORAL CAPSULE 1 po qid K EFLEX 500 MG ORAL CAPSULE 247878 CEPHALEXIN Inactive COLCRYS 0.6 MG ORAL TABLET 1 tab qid prn gout COLCRYS 0.6 MG ORAL TABLET 090173 COLCHICINE Inactive FAMOTIDINE 20 MG ORAL TABLET by mouth twice a day 2017 FAMOTIDINE 20 MG ORAL TABLET 600398 FAMOTIDINE Inactive GLIMEPIRIDE 2 MG ORAL TABLET 1 po BID GLIMEPIRIDE 2 MG ORAL TABLET 176901 GLIMEPIRIDE Inactive LOVENOX 100 MG/ML SUBCUTANEOUS SOLUTION One injection twice a da y LOVENOX 100 MG/ML SUBCUTANEOUS SOLUTION 824991 ENOXAPAR IN SODIUM Inactive PREDNISONE 20 MG ORAL TABLET 2 tabs daily for 3 days 1 tab d aily for 3 days PREDNISONE 20 MG ORAL TABLET 455141 PREDNISONE Inactive Advance Directives Directive Description Start [...] Panel - Chemistry sodium, serum 140 mmol/L 533-355 7876/11/01 carbon dioxide, venous blood 28.6 mmol/L 21.0-32 [...] mg/dL Encounters Code Encounter Date Provider Facility CPT-17838 [id number] Vst-Est Level IV 16:21:22 CDT Bru ce W Carlitos DO [facility] CPT-15377 Level 3 Est. Patient 15:18:36 CDT Becky Se ll ANNIE [facility] CPT-38162 [id number] Vst-Est Level IV 10:06:35 CDT Bru robinson Urbina [facility] CPT-24251 [id number] Vst-Est Level IV 10:52:00 HAND ZIPPER TRIMMER Stephy Urbina [facility] CPT-66174 Level 3 Est. Patient 18:25:53 CDT Mitch Arnol luis [facility] CPT-18154 Level 3 Est. Patient 19:43:34 CDT Mitch Arnol luis [facility] CPT-75463 Level 4 Est. Patient 09:30:18 CDT Mitch Castellano janelle [facility] CPT-87823 Level 3 Est. Patient 15:10:14 CDT [facility] CPT-29852 Level 3 Est. Patient 15:03:46 CDT [facility] CPT-54166 Level 3 Est. Patient 14:21:06 CDT Mitch Arnol luis [facility] CPT-54168 Level 3 Est. Patient 14:52:06 CDT Joe [facility] CPT-60171 Level 3 Est. Patient 09:34:30 HAND ZIPPER TRIMMER Mitch Arnol luis [facility] CPT-42022 Level 3 Est. Patient 09:37:15 CDT Mitch Arnol luis [facility] CPT-65079 Level 3 Est. Patient 17:01:00 HAND ZIPPER TRIMMER Mitch Arnol luis [facility] CPT-98564 Level 3 Est. Patient 13:53:19 HAND ZIPPER TRIMMER Mitch luis [facility] CPT-74470 Level 3 Est. Patient 19:19:37 HAND ZIPPER TRIMMER Mitch Arnol luis [facility] CPT-37948 Level 3 Est. Patient 13:25:53 HAND ZIPPER TRIMMER Tavo toure MD [facility] CPT-47488 Level 3 Est. Patient 18:17:28 CDT Mitch luis [facility] CPT-20816 Level 3 Est. Patient 15:22:57 CDT Mitch luis [facility] CPT-23055 Level 3 Est. Patient 18:21:50 CDT Mitch luis [facility] CPT-38986 Level 3 Est. Patient 18:20:38 CDT Mitch luis [facility] CPT-89412 Level 3 Est. Patient 15:37:55 CDT Mitch luis [facility] CPT-47268 Level 2 Est. Patient 15:54:44 CDT Carmine benton MD [facility]-47054 Level 3 Est. Patient 21:46:01 HAND ZIPPER TRIMMER Mitch luis [facility] CPT-03885 Level 3 Est. Patient 22:15:50 CDT Mitch luis [facility] CPT-98370 Level 3 Est. Patient 10:48:15 CDT Mitch luis [facility] CPT-52334 Level 3 Est. Patient 23:20:57 CDT Tavo toure MD [facility] CPT-33881 Level 3 Est. Patient 16:26:13 CDT Mitch luis [facility] Procedures Code Procedure Name Date Entry Date Standard Desc ription CPT-12649 Venipuncture Draw Fee 08:26:21 CDT CPT-44006 Venous Duplex Left Leg XRAY USE ONLY 10:43:10 CDT CPT-22097 Venipuncture Draw Fee 17:04:55 CDT CPT-99901 Venipuncture Draw Fee 17:20:50 CDT CPT-35506 Venipuncture Draw Fee 18:00:48 CDT CPT-46756 Venipuncture Draw Fee 14:56:20 CDT CPT-JTINJ Asp/Joint Injection 18:47:02 CDT CPT-73371 Venipuncture Draw Fee 09:26:17 CDT CPT-44793 PT/INR - LAB USE ONLY 13:32:49 HAND ZIPPER TRIMMER CPT-68148 Venipuncture Draw Fee 13:32:49 HAND ZIPPER TRIMMER CPT-95072 PT/INR - LAB USE ONLY 10:34:49 HAND ZIPPER TRIMMER CPT-01265 Venipuncture Draw Fee 10:34:48 HAND ZIPPER TRIMMER CPT-79605 PT/INR - LAB USE ONLY 09:22:03 HAND ZIPPER TRIMMER CPT-83348 Venipuncture Draw Fee 09:22:02 HAND ZIPPER TRIMMER CPT-56857 Hemoccult IFOBT - LAB USE ONLY 10:27:22 CDT CPT-00354 Venipuncture Draw Fee 08:27:08 CDT CPT-25485 Liver Profile - LAB USE ONLY 08:27:07 CDT 2 CPT-31713 Microalbumin - LAB USE ONLY 08:27:07 CDT 20 25/05/09 CPT-23536 PT/INR - LAB USE ONLY 08:27:07 CDT CPT-99666 HGBA1C - LAB USE ONLY 08:27:07 CDT CPT-23729 CBC - LAB USE ONLY 08:27:07 CDT CPT-69886 Venipuncture Draw Fee 11:09:14 CDT CPT-32750 Venipuncture Draw Fee 08:32:21 HAND ZIPPER TRIMMER CPT-30590 Venipuncture Draw Fee 09:38:56 HAND ZIPPER TRIMMER CPT-16304 No Charge Offi Visit 21:36:07 CDT 1 CPT-05554 Venipuncture Draw Fee 10:13:28 HAND ZIPPER TRIMMER CPT-94501 Venipuncture Draw Fee 08:31:11 CDT CPT-54622 Aspir/Inject Med Joint 18:17:28 CDT CPT-10894 Venipuncture Draw Fee 10:13:30 CDT CPT-26731 Venipuncture Draw Fee 08:31:43 HAND ZIPPER TRIMMER CPT-JTINJ Joint Injection 18:34:50 CDT CPT-76194 Knee 3V 12:25:09 CDT CPT-53218 Venipuncture Draw Fee 12:15:57 CDT CPT-060 Medical Surveillance Exam 21:31:43 CDT 2011 CPT-57173 Venipuncture Draw Fee 08:32:05 HAND ZIPPER TRIMMER CPT-OV Office Visit 18:19:06 CDT
--- OUTSIDE RECORDS SUMMARY | 2020-01-18 13:55 | XMS REPORT | Clinical Summary ---
Author Author Admin, Mitch Leon Organization [facility] Address Unknown Phone Unavailable Allergies, Adverse Reactions, [...] Coronary atherosclerosis of unspecified type of vessel, benton or graft EDEMA 782.3 Resolved Mitch Urbina [...] Mitch Urbina DO UNSPECIFIED ANEMIA ICD-285.9 Inactive Micth luis DO Malaise and fatigue ICD-780.79 Inactive [...] by mouth daily 201 05/19/02 AMLODIPINE BESYLATE 97223453711 No Longer Active Maria Briones Active WARFARIN TABS 1MG TAKE 2 TABLETS (2 MG) DAILY WITH THE 5 MG TABLET TO EQUAL 7 MG DAILY WARFARIN SODIUM 84644964353 Active Maria Briones Active WARFARIN SODIUM 5 MG TABS TAKE 1 TABLET DAILY W ARFARIN SODIUM 98422779414 Active Allison PERERA Active KEFLEX 500 MG ORAL CAPSULE 1 capsule by mouth three times da rocky x10 days CEPHALEXIN 55940153674 Active Maria Rivas RN Active METOPROLOL TARTRATE TABS 50MG TAKE 1 TABLET TWICE A DAY ([facility] WORK) METOPROLOL TARTRATE 72664245173 Active Maria Briones Active DOXAZOSIN MESYLATE 2 MG ORAL TABLET 1 po q day for pr ostate and blood pressure DOXAZOSIN MESYLATE 28722499835 Active Mitch Urbina DO Active LOSARTAN TABS 100MG TAKE 1 TABLET DAILY FOR BLOOD PRESSURE LOSARTAN POTASSIUM 54435385120 Active Maria Rivas RN Active FLUTICASONE PROPIONATE 50 MCG/ACT NASAL SUSPENSION 1 s pray each nostril twice daily for 1 week, then once daily FLUTICASONE [place] OPIONATE 61358202509 Active Becky Sell TOP COATER Active PREDNISONE 20 MG ORAL TABLET 2 tabs daily for 3 days 1 tab d aily for 3 days PREDNISONE 54942411670 No Longer Active Becky Sell TOP COATER Active MINOXIDIL 2.5 MG ORAL TABLET 1 tablet twice daily for high b lood pressure MINOXIDIL 87065683642 Active Mitch Urbina DO Ac tive METFORMIN HCL ER 500 MG ORAL TABLET EXTENDED RELEASE 2 4 HOUR 2 tablets by mouth twice daily METFORMIN HCL 18056109030 Active Mitch Urbina DO Active GLIMEPIRIDE 4 MG ORAL TABLET 1 tablet by mouth twice daily f or diabetes GLIMEPIRIDE 09698622601 Active Mitch Urbina DO Active GLIMEPIRIDE 2 MG ORAL TABLET 1 po BID GLIMEPI RIDE 78391611357 No Longer Active Mitch Urbina DO Active PROVIGIL 200 MG ORAL TABLET 1/2 tab po q day MODA FINIL 96181564386 Active Maria Rivas RN Active FAMOTIDINE 20 MG ORAL TABLET by mouth twice a day 2017 FAMOTIDINE 65948023184 No Longer Active Mitch Urbina DO Active COLCRYS 0.6 MG ORAL TABLET 1 tab qid prn gout C OLCHICINE 76700105818 No Longer Active Mitch Urbina DO Active KEFLEX 500 MG ORAL CAPSULE 1 po qid CEPHALEXI N 38336965189 No Longer Active Mitch Urbina DO Active AMLODIPINE BESYLATE 5 MG ORAL TABLET 1 tablet by mouth daily 201 01/20/04 AMLODIPINE BESYLATE 02426073243 No Longer Active Joe fulton TOP COATER Active MITIGARE 0.6 MG ORAL CAPSULE 2 capsules at onset of go ut pain, then take one capsule at 1 hour if symptoms persist. COLCHICINE 59 404471283 Active Mitch Urbina DO Active INVOKANA 100 MG ORAL TABLET 1 tablet orally daily CANAGLIFLOZIN 17242036282 Active Mitch Urbina DO Active MECLIZINE HCL 25 MG ORAL TABLET 1 po tid 3 days, then 1/2 ta b tid 3 days MECLIZINE HCL 00038427746 No Longer Active Corey SEGURA Active ALLOPURINOL 300 MG ORAL TABLET Take 1 tablet by mouth daily 2012 ALLOPURINOL 40625453892 No Longer Active Corey SEGURA Active CLONIDINE HCL 0.1 MG ORAL TABLET 1 po bid 7 days, then 1/2 t ab po bid 7 days CLONIDINE HCL 80795441617 No Longer Active Corey SEGURA Active COUMADIN 4 MG ORAL TABLET 1 tablet daily WARFAR IN SODIUM 84004508769 No Longer Active Corey SEGURA Active POLYTRIM 81257-1.1 UNIT/ML-% OPHTHALMIC SOLUTION 1 rui p in affected eye every 3 hours while awake x 7 days POLYMYXIN B-TRIMETHOP RIM 50265660647 No Longer Active Corey SEGURA Active LOSARTAN POTASSIUM-HCTZ 100-12.5 MG ORAL TABLET 1 by m outh daily for high blood pressure LOSARTAN POTASSIUM-HCTZ 18642230390 No Longer A ctive Mitch Urbina DO Active LISINOPRIL-HYDROCHLOROTHIAZIDE 20-12.5 MG ORAL TABLET 1 tab by m outh daily LISINOPRIL-HYDROCHLOROTHIAZIDE 24648296120 No Longer Active Mitch Urbina DO Active LISINOPRIL 20 MG ORAL TABLET 1 tab po at HS LIS INOPRIL 61038992122 No Longer Active Mitch Urbina DO Active COUMADIN 5 MG ORAL TABLET 1 by mouth every other day 2 WARFARIN SODIUM 67787518004 No Longer Active Mitch Urbina DO Active COUMADIN 6 MG ORAL TABLET 1 by mouth every other day 2 WARFARIN SODIUM 26883597996 No Longer Active Mitch Urbina DO Active SIMVASTATIN 40 MG ORAL TABLET 1 tab daily at bedtime SIMVASTATIN 79900312936 Active Maria Rivas RN Active SIMVASTATIN 20 MG ORAL TABLET 1 tab daily at bedtime 2 SIMVASTATIN 16583132446 No Longer Active Mitch Urbina DO Active LOVENOX 100 MG/ML SUBCUTANEOUS SOLUTION One injection twice a da y ENOXAPARIN SODIUM 37917913084 No Longer Active Carmine Yusuf MD Active JANUVIA 50 MG ORAL TABLET Take one by mouth daily SITAGLIPTIN PHOSPHATE 97466377794 Active Renee Oconnoreder DE LA ROSA Active JANUVIA 100 MG ORAL TABLET 1/2 by mouth every day 2011 SITAGLIPTIN PHOSPHATE 41726994625 No Longer Active Bijal Segal RN Acti ve METFORMIN HCL 500 MG ORAL TABLET 2 by mouth twice daily METFORMIN HCL 11683957169 No Longer Active Renee Oconnor LPN Active COLCRYS 0.6 MG ORAL TABLET 1 po q 6 hours prn gout pain COLCHICINE 25529801861 No Longer Active Camila Reese Active LISINOPRIL 5 MG ORAL TABLET 1 by mouth every day 11/17 LISINOPRIL 05971800643 No Longer Active Nguyen Perez Active KLOR-CON 20 MEQ ORAL PACKET Take one by mouth daily 20 09/10/08 POTASSIUM CHLORIDE 07504889390 No Longer Active Nguyen Perez Active FUROSEMIDE 40 MG ORAL TABLET 1 by mouth daily F UROSEMIDE 21322952969 No Longer Active Nguyen Perez Active PROVIGIL 100 MG ORAL TABLET Take one by mouth daily 20 08/20/04 MODAFINIL 90694528939 No Longer Active Mitch Urbina DO Active BACTRIM DS 800-160 MG ORAL TABLET 1 tab by mouth twice daily 201 10/19/09 TRIMETHOPRIM-SULFAMETHOXAZOLE 29691823347 No Longer Active C alberto Hays MD Active ADULT ASPIRIN LOW STRENGTH 81 MG ORAL TABLET DISINTEGR ATING 1 by mouth every daily ASPIRIN 24929606043 Active Mitch Urbina DO Ac tive BACTRIM DS 800-160 MG ORAL TABLET 1 tab by mouth twice daily 201 10/19/09 BACTRIM DS 800-160 MG ORAL TABLET 666298 TRIMETHOPRIM-SULFAMETHOXAZOLE Inactive PROVIGIL 100 MG ORAL TABLET Take one by mouth daily 08/20/04 PROVIGIL 100 MG ORAL TABLET 275700 MODAFINIL Inactive FUROSEMIDE 40 MG ORAL TABLET 1 by mouth daily FUROSEMIDE 40 MG ORAL TABLET 232281 FUROSEMIDE Inactive KLOR-CON 20 MEQ ORAL PACKET Take one by mouth daily 09/10/08 KLOR- CON 20 MEQ ORAL PACKET 5324040 POTASSIUM CHLORIDE Inactive LISINOPRIL 5 MG ORAL TABLET 1 by mouth every day 11/17 LISINOPRIL 5 MG ORAL TABLET 871928 LISINOPRIL Inactive COLCRYS 0.6 MG ORAL TABLET 1 po q 6 hours prn gout pain COLCRYS 0.6 MG ORAL TABLET 395503 COLCHICINE Inactive JANUVIA 100 MG ORAL TABLET 1/2 by mouth every day 2011 JANUVIA 100 MG ORAL TABLET SITAGLIPTIN PHOSPHATE Inactive SIMVASTATIN 20 MG ORAL TABLET 1 tab daily at bedtime 2 SIMVASTATIN 20 MG ORAL TABLET 636099 SIMVASTATIN Inactive COUMADIN 6 MG ORAL TABLET 1 by mouth every other day COUMADIN 6 MG ORAL TABLET 484347 WARFARIN SODIUM Inactive COUMADIN 5 MG ORAL TABLET 1 by mouth every other day 2 COUMADIN 5 MG ORAL TABLET 437755 WARFARIN SODIUM Inactive LISINOPRIL 20 MG ORAL TABLET 1 tab po at HS LISINOPRIL 20 MG ORAL TABLET 700698 LISINOPRIL Inactive LISINOPRIL-HYDROCHLOROTHIAZIDE 20-12.5 MG ORAL TABLET 1 tab by m outh daily LISINOPRIL-HYDROCHLOROTHIAZIDE 20-12.5 MG ORAL TABLET 291004 LISINOPRIL-HYDROCHLOROTHIAZIDE Inactive POLYTRIM 41240-5.1 UNIT/ML-% OPHTHALMIC SOLUTION 1 rui p in affected eye every 3 hours while awake x 7 days POLYTRIM 1000 0-0.1 UNIT/ML-% OPHTHALMIC SOLUTION 613545 POLYMYXIN B-TRIMETHOPRIM Inactive COUMADIN 4 MG ORAL TABLET 1 tablet daily COUMADIN 4 MG ORAL TABLET 167945 WARFARIN SODIUM Inactive CLONIDINE HCL 0.1 MG ORAL TABLET 1 po bid 7 days, then 1/2 t ab po bid 7 days CLONIDINE HCL 0.1 MG ORAL TABLET 770882 CLONIDIN E HCL Inactive ALLOPURINOL 300 MG ORAL TABLET Take 1 tablet by mouth daily 2012 ALLOPURINOL 300 MG ORAL TABLET 886105 ALLOPURINOL I nactive MECLIZINE HCL 25 MG ORAL TABLET 1 po tid 3 days, then 1/2 ta b tid 3 days MECLIZINE HCL 25 MG ORAL TABLET 653117 MECLIZINE HCL Inactive AMLODIPINE BESYLATE 5 MG ORAL TABLET 1 tablet by mouth daily 201 01/20/04 AMLODIPINE BESYLATE 5 MG ORAL TABLET 574741 AMLODIPINE BESYLATE Inactive KEFLEX 500 MG ORAL CAPSULE 1 po qid K EFLEX 500 MG ORAL CAPSULE 321541 CEPHALEXIN Inactive COLCRYS 0.6 MG ORAL TABLET 1 tab qid prn gout COLCRYS 0.6 MG ORAL TABLET 242749 COLCHICINE Inactive FAMOTIDINE 20 MG ORAL TABLET by mouth twice a day 2017 FAMOTIDINE 20 MG ORAL TABLET 520547 FAMOTIDINE Inactive GLIMEPIRIDE 2 MG ORAL TABLET 1 po BID GLIMEPIRIDE 2 MG ORAL TABLET 663943 GLIMEPIRIDE Inactive AMLODIPINE BESYLATE 5 MG ORAL TABLET 1 tablet by mouth daily 201 05/19/02 AMLODIPINE BESYLATE 5 MG ORAL TABLET 869827 AMLODIPINE BESYLATE Inactive LOVENOX 100 MG/ML SUBCUTANEOUS SOLUTION One injection twice a da y LOVENOX 100 MG/ML SUBCUTANEOUS SOLUTION 057459 ENOXAPAR IN SODIUM Inactive PREDNISONE 20 MG ORAL TABLET 2 tabs daily for 3 days 1 tab d aily for 3 days PREDNISONE 20 MG ORAL TABLET 290784 PREDNISONE Inactive Advance Directives Directive Description Start Date PERMISSION TO SHARE Immunizations Vaccine Administration Date Value Standard Goevanny cription influenza immunization (Flu Vax) has been [...] Panel - Chemistry sodium, serum 140 mmol/L 200-537 3337/11/01 carbon dioxide, venous blood 28.6 mmol/L 21.0-32 [...] mg/dL Encounters Code Encounter Date Provider Facility CPT-65972 40557-Tim Vst-Est Level IV 16:21:22 CDT Bru robinson [facility] CPT-22142 Level 3 Est. Patient 15:18:36 CDT Becky Se justin [facility] CPT-38545 71086-Cab Vst-Est Level IV 10:06:35 CDT Bru ce [facility] CPT-32264 67688-Zls Vst-Est Level IV 10:52:00 FARM FIELD MANAGER Bru robinson Urbina [facility] CPT-91169 Level 3 Est. Patient 18:25:53 CDT Mitch luis [facility] CPT-98357 Level 3 Est. Patient 19:43:34 CDT Mitch luis [facility] CPT-68440 Level 4 Est. Patient 09:30:18 CDT Mitch luis [facility] CPT-65918 Level 3 Est. Patient 15:10:[address] [facility] CPT-31791 Level 3 Est. Patient 15:03:[address] [facility] CPT-60488 Level 3 Est. Patient 14:21:06 CDT Mitch luis [facility] CPT-63727 Level 3 Est. Patient 14:52:[address] [facility] CPT-18994 Level 3 Est. Patient 09:34:30 FARM FIELD MANAGER Mitch luis [facility] CPT-60107 Level 3 Est. Patient 09:37:15 CDT Mitch luis [facility] CPT-96592 Level 3 Est. Patient 17:01:00 FARM FIELD MANAGER Mitch luis [facility] CPT-95804 Level 3 Est. Patient 13:53:19 FARM FIELD MANAGER Mtich luis [facility] CPT-68078 Level 3 Est. Patient 19:19:37 FARM FIELD MANAGER Mitch luis [facility] CPT-14731 Level 3 Est. Patient 13:25:53 FARM FIELD MANAGER Tavo toure MD [facility] CPT-59042 Level 3 Est. Patient 18:17:28 CDT Mitch luis [facility] CPT-47526 Level 3 Est. Patient 15:22:57 CDT Mitch Arnol luis [facility] CPT-91057 Level 3 Est. Patient 18:21:50 CDT Mitch luis [facility] CPT-41363 Level 3 Est. Patient 18:20:38 CDT Mitch luis [facility] CPT-92879 Level 3 Est. Patient 15:37:55 CDT Mitch luis [facility] CPT-88212 Level 2 Est. Patient 15:54:44 CDT Carmine benton MD [facility]-17090 Level 3 Est. Patient 21:46:01 FARM FIELD MANAGER Mitch luis [facility] CPT-87379 Level 3 Est. Patient 22:15:50 CDT Mitch luis [facility] CPT-93126 Level 3 Est. Patient 10:48:15 CDT Mitch luis [facility] CPT-36520 Level 3 Est. Patient 23:20:57 CDT Tavo toure MD [facility] CPT-28260 Level 3 Est. Patient 16:26:13 CDT Mitch Arnol luis [facility] Procedures Code Procedure Name Date Entry Date Standard Desc ription CPT-36387 Venipuncture Draw Fee 08:26:21 CDT CPT-99589 Venous Duplex Left Leg XRAY USE ONLY 10:43:10 CDT CPT-05421 Venipuncture Draw Fee 17:04:55 CDT CPT-28878 Venipuncture Draw Fee 17:20:50 CDT CPT-42387 Venipuncture Draw Fee 18:00:48 CDT CPT-18730 Venipuncture Draw Fee 14:56:20 CDT CPT-JTINJ Asp/Joint Injection 18:47:02 CDT CPT-09504 Venipuncture Draw Fee 09:26:17 CDT CPT-44282 PT/INR - LAB USE ONLY 13:32:49 FARM FIELD MANAGER CPT-70706 Venipuncture Draw Fee 13:32:49 FARM FIELD MANAGER CPT-54922 PT/INR - LAB USE ONLY 10:34:49 FARM FIELD MANAGER CPT-96148 Venipuncture Draw Fee 10:34:48 FARM FIELD MANAGER CPT-95130 PT/INR - LAB USE ONLY 09:22:03 FARM FIELD MANAGER CPT-68359 Venipuncture Draw Fee 09:22:02 FARM FIELD MANAGER CPT-17660 Hemoccult IFOBT - LAB USE ONLY 10:27:22 CDT CPT-31914 Venipuncture Draw Fee 08:27:08 CDT CPT-15353 Liver Profile - LAB USE ONLY 08:27:07 CDT 2 CPT-04799 Microalbumin - LAB USE ONLY 08:27:07 CDT 20 25/05/09 CPT-69172 PT/INR - LAB USE ONLY 08:27:07 CDT CPT-98475 HGBA1C - LAB USE ONLY 08:27:07 CDT CPT-69485 CBC - LAB USE ONLY 08:27:07 CDT CPT-53412 Venipuncture Draw Fee 11:09:14 CDT CPT-33542 Venipuncture Draw Fee 08:32:21 FARM FIELD MANAGER CPT-89791 Venipuncture Draw Fee 09:38:56 FARM FIELD MANAGER CPT-44856 No Charge Offi Visit 21:36:07 CDT 1 CPT-21120 Venipuncture Draw Fee 10:13:28 FARM FIELD MANAGER CPT-35386 Venipuncture Draw Fee 08:31:11 CDT CPT-60804 Aspir/Inject Med Joint 18:17:28 CDT CPT-28552 Venipuncture Draw Fee 10:13:30 CDT CPT-19347 Venipuncture Draw Fee 08:31:43 FARM FIELD MANAGER CPT-JTINJ Joint Injection 18:34:50 CDT CPT-22326 Knee 3V 12:25:09 CDT CPT-88295 Venipuncture Draw Fee 12:15:57 CDT CPT-060 Medical Surveillance Exam 21:31:43 CDT 2011 CPT-78662 Venipuncture Draw Fee 08:32:05 FARM FIELD MANAGER CPT-OV Office Visit 18:19:06 CDT
--- OUTSIDE RECORDS SUMMARY | 2020-01-18 13:55 | XMS REPORT | Clinical Summary ---
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 3 Active Mitch Arnol Carlitos DO Osteoarthrosis, unsp ecified whether generalized or localized, involving lower leg DIZZINESS 780.4 Resolved Mitch Arnol Carlitos DO Dizziness and giddiness CAROTID BRUIT, LEFT 785.9 Active Mitch W Carlitos DO Other symptoms involving cardiovascular system GOUT, RIGHT WRIST 274.9 Resolved Mithc Arnol Carlitos DO Gout, unspecified BRUISE 924.9 [...] TO EQUAL 7 MG DAILY WARFARIN SODIUM 68000547923 Active Maria Briones Active WARFARIN SODIUM 5 MG TABS TAKE 1 TABLET DAILY W ARFARIN SODIUM 40292541667 Active Allison PERERA Active KEFLEX 500 MG ORAL CAPSULE 1 capsule by mouth three times da rocky x10 days CEPHALEXIN 18809239718 Active Maria Rivas RN Active METOPROLOL TARTRATE TABS 50MG TAKE 1 TABLET TWICE A DAY ([facility]) METOPROLOL TARTRATE 71528838150 Active Maria Briones Active DOXAZOSIN MESYLATE 2 MG ORAL TABLET 1 po q day for pr ostate and blood pressure DOXAZOSIN MESYLATE 99455758595 Active Mitch Urbina DO Active LOSARTAN TABS 100MG TAKE 1 TABLET DAILY FOR BLOOD PRESSURE LOSARTAN POTASSIUM 19573300633 Active Maria Rivas RN Active FLUTICASONE PROPIONATE 50 MCG/ACT NASAL SUSPENSION 1 s pray each nostril twice daily for 1 week, then once daily FLUTICASONE NE OPIONATE 75493377671 Active Becky Mohamud APRN Active PREDNISONE 20 MG ORAL TABLET 2 tabs daily for 3 days 1 tab d aily for 3 days PREDNISONE 77721438970 No Longer Active Becky Mohamud APRN Active MINOXIDIL 2.5 MG ORAL TABLET 1 tablet twice daily for high b lood pressure MINOXIDIL 36146923874 Active Mitch Urbina DO Ac tive METFORMIN HCL ER 500 MG ORAL TABLET EXTENDED RELEASE 2 4 HOUR 2 tablets by mouth twice daily METFORMIN HCL 37500578193 Active Mitch Urbina DO Active GLIMEPIRIDE 4 MG ORAL TABLET 1 tablet by mouth twice daily f or diabetes GLIMEPIRIDE 30207507642 Active Mitch Urbina DO Active GLIMEPIRIDE 2 MG ORAL TABLET 1 po BID GLIMEPI RIDE 46864040984 No Longer Active Mitch Urbina DO Active AMLODIPINE BESYLATE 5 MG ORAL TABLET 1 tablet by mouth daily AMLODIPINE BESYLATE 38624654687 Active Mitch Urbina DO Active PROVIGIL 200 MG ORAL TABLET 1/2 tab po q day MODA FINIL 64780547779 Active Maria Rivas RN Active FAMOTIDINE 20 MG ORAL TABLET by mouth twice a day 2017 FAMOTIDINE 02841549192 No Longer Active Mitch Urbina DO Active COLCRYS 0.6 MG ORAL TABLET 1 tab qid prn gout C OLCHICINE 33506103771 No Longer Active Mitch Urbina DO Active KEFLEX 500 MG ORAL CAPSULE 1 po qid CEPHALEXI N 76322448664 No Longer Active Mitch Urbina DO Active AMLODIPINE BESYLATE 5 MG ORAL TABLET 1 tablet by mouth daily 201 01/20/04 AMLODIPINE BESYLATE 98169719554 No Longer Active Joe fulton APRN Active MITIGARE 0.6 MG ORAL CAPSULE 2 capsules at onset of go ut pain, then take one capsule at 1 hour if symptoms persist. COLCHICINE 59 444468679 Active Mitch Urbina DO Active INVOKANA 100 MG ORAL TABLET 1 tablet orally daily CANAGLIFLOZIN 92192891297 Active Mitch Urbina DO Active MECLIZINE HCL 25 MG ORAL TABLET 1 po tid 3 days, then 1/2 ta b tid 3 days MECLIZINE HCL 20589994583 No Longer Active Corey SEGURA Active ALLOPURINOL 300 MG ORAL TABLET Take 1 tablet by mouth daily 2012 ALLOPURINOL 15030823173 No Longer Active Corey SEGURA Active CLONIDINE HCL 0.1 MG ORAL TABLET 1 po bid 7 days, then 1/2 t ab po bid 7 days CLONIDINE HCL 61747737175 No Longer Active Corey SEGURA Active COUMADIN 4 MG ORAL TABLET 1 tablet daily WARFAR IN SODIUM 99794481770 No Longer Active Corey SEGURA Active POLYTRIM 58397-3.1 UNIT/ML-% OPHTHALMIC SOLUTION 1 rui p in affected eye every 3 hours while awake x 7 days POLYMYXIN B-TRIMETHOP RIM 05048386089 No Longer Active Corey SEGURA Active LOSARTAN POTASSIUM-HCTZ 100-12.5 MG ORAL TABLET 1 by m outh daily for high blood pressure LOSARTAN POTASSIUM-HCTZ 01959615857 No Longer A ctive Mitch Urbina DO Active LISINOPRIL-HYDROCHLOROTHIAZIDE 20-12.5 MG ORAL TABLET 1 tab by m outh daily LISINOPRIL-HYDROCHLOROTHIAZIDE 33042701065 No Longer Active Mitch Urbina DO Active LISINOPRIL 20 MG ORAL TABLET 1 tab po at HS LIS INOPRIL 68360808824 No Longer Active Mitch Urbina DO Active COUMADIN 5 MG ORAL TABLET 1 by mouth every other day 2 WARFARIN SODIUM 42348303928 No Longer Active Mitch Urbina DO Active COUMADIN 6 MG ORAL TABLET 1 by mouth every other day 2 WARFARIN SODIUM 42611616924 No Longer Active Mitch Urbina DO Active SIMVASTATIN 40 MG ORAL TABLET 1 tab daily at bedtime SIMVASTATIN 83556447854 Active Maria Rivas RN Active SIMVASTATIN 20 MG ORAL TABLET 1 tab daily at bedtime 2 SIMVASTATIN 39873377274 No Longer Active Mitch Urbina DO Active LOVENOX 100 MG/ML SUBCUTANEOUS SOLUTION One injection twice a da y ENOXAPARIN SODIUM 54896254104 No Longer Active Carmine Yusuf MD Active JANUVIA 50 MG ORAL TABLET Take one by mouth daily SITAGLIPTIN PHOSPHATE 17563538562 Active Renee Oconnoreder DE LA ROSA Active JANUVIA 100 MG ORAL TABLET 1/2 by mouth every day 2011 SITAGLIPTIN PHOSPHATE 31327299548 No Longer Active Bijal Segal RN Acti ve METFORMIN HCL 500 MG ORAL TABLET 2 by mouth twice daily METFORMIN HCL 89087857556 No Longer Active Renee Oconnor LPN Active COLCRYS 0.6 MG ORAL TABLET 1 po q 6 hours prn gout pain COLCHICINE 64103398773 No Longer Active Camila Reese Active LISINOPRIL 5 MG ORAL TABLET 1 by mouth every day 11/17 LISINOPRIL 56573818132 No Longer Active Nguyen Perez Active KLOR-CON 20 MEQ ORAL PACKET Take one by mouth daily 20 09/10/08 POTASSIUM CHLORIDE 09677019366 No Longer Active Nguyen Perez Active FUROSEMIDE 40 MG ORAL TABLET 1 by mouth daily F UROSEMIDE 52792488119 No Longer Active Nguyen Perez Active PROVIGIL 100 MG ORAL TABLET Take one by mouth daily 08/20/04 MODAFINIL 95914844284 No Longer Active Mitch Urbina DO Active BACTRIM DS 800-160 MG ORAL TABLET 1 tab by mouth twice daily 201 10/19/09 TRIMETHOPRIM-SULFAMETHOXAZOLE 99280039644 No Longer Active Elian Hays MD Active ADULT ASPIRIN LOW STRENGTH 81 MG ORAL TABLET DISINTEGR ATING 1 by mouth every daily ASPIRIN 68831386411 Active Mitch Urbina DO Ac tive BACTRIM DS 800-160 MG ORAL TABLET 1 tab by mouth twice daily 201 10/19/09 BACTRIM DS 800-160 MG ORAL TABLET 419523 TRIMETHOPRIM-SULFAMETHOXAZOLE Inactive PROVIGIL 100 MG ORAL TABLET Take one by mouth daily 20 08/20/04 PROVIGIL 100 MG ORAL TABLET 891133 MODAFINIL Inactive FUROSEMIDE 40 MG ORAL TABLET 1 by mouth daily FUROSEMIDE 40 MG ORAL TABLET 678858 FUROSEMIDE Inactive KLOR-CON 20 MEQ ORAL PACKET Take one by mouth daily 09/10/08 KLOR- CON 20 MEQ ORAL PACKET 1047931 POTASSIUM CHLORIDE Inactive LISINOPRIL 5 MG ORAL TABLET 1 by mouth every day 11/17 LISINOPRIL 5 MG ORAL TABLET 304453 LISINOPRIL Inactive COLCRYS 0.6 MG ORAL TABLET 1 po q 6 hours prn gout pain COLCRYS 0.6 MG ORAL TABLET 681704 COLCHICINE Inactive JANUVIA 100 MG ORAL TABLET 1/2 by mouth every day 2011 JANUVIA 100 MG ORAL TABLET SITAGLIPTIN PHOSPHATE Inactive SIMVASTATIN 20 MG ORAL TABLET 1 tab daily at bedtime 2 SIMVASTATIN 20 MG ORAL TABLET 250981 SIMVASTATIN Inactive COUMADIN 6 MG ORAL TABLET 1 by mouth every other day COUMADIN 6 MG ORAL TABLET 356583 WARFARIN SODIUM Inactive COUMADIN 5 MG ORAL TABLET 1 by mouth every other day 2 COUMADIN 5 MG ORAL TABLET 980957 WARFARIN SODIUM Inactive LISINOPRIL 20 MG ORAL TABLET 1 tab po at HS LISINOPRIL 20 MG ORAL TABLET 605174 LISINOPRIL Inactive LISINOPRIL-HYDROCHLOROTHIAZIDE 20-12.5 MG ORAL TABLET 1 tab by m outh daily LISINOPRIL-HYDROCHLOROTHIAZIDE 20-12.5 MG ORAL TABLET 324049 LISINOPRIL-HYDROCHLOROTHIAZIDE Inactive POLYTRIM 06547-4.1 UNIT/ML-% OPHTHALMIC SOLUTION 1 rui p in affected eye every 3 hours while awake x 7 days POLYTRIM 1000 0-0.1 UNIT/ML-% OPHTHALMIC SOLUTION 247629 POLYMYXIN B-TRIMETHOPRIM Inactive COUMADIN 4 MG ORAL TABLET 1 tablet daily COUMADIN 4 MG ORAL TABLET 082506 WARFARIN SODIUM Inactive CLONIDINE HCL 0.1 MG ORAL TABLET 1 po bid 7 days, then 1/2 t ab po bid 7 days CLONIDINE HCL 0.1 MG ORAL TABLET 463066 CLONIDIN E HCL Inactive ALLOPURINOL 300 MG ORAL TABLET Take 1 tablet by mouth daily 2012 ALLOPURINOL 300 MG ORAL TABLET 144994 ALLOPURINOL I nactive MECLIZINE HCL 25 MG ORAL TABLET 1 po tid 3 days, then 1/2 ta b tid 3 days MECLIZINE HCL 25 MG ORAL TABLET 917362 MECLIZINE HCL Inactive AMLODIPINE BESYLATE 5 MG ORAL TABLET 1 tablet by mouth daily 201 01/20/04 AMLODIPINE BESYLATE 5 MG ORAL TABLET 906628 AMLODIPINE BESYLATE Inactive KEFLEX 500 MG ORAL CAPSULE 1 po qid K EFLEX 500 MG ORAL CAPSULE 635205 CEPHALEXIN Inactive COLCRYS 0.6 MG ORAL TABLET 1 tab qid prn gout COLCRYS 0.6 MG ORAL TABLET 023677 COLCHICINE Inactive FAMOTIDINE 20 MG ORAL TABLET by mouth twice a day 2017 FAMOTIDINE 20 MG ORAL TABLET 463920 FAMOTIDINE Inactive GLIMEPIRIDE 2 MG ORAL TABLET 1 po BID GLIMEPIRIDE 2 MG ORAL TABLET 301445 GLIMEPIRIDE Inactive LOVENOX 100 MG/ML SUBCUTANEOUS SOLUTION One injection twice a da y LOVENOX 100 MG/ML SUBCUTANEOUS SOLUTION 226338 ENOXAPAR IN SODIUM Inactive PREDNISONE 20 MG ORAL TABLET 2 tabs daily for 3 days 1 tab d aily for 3 days PREDNISONE 20 MG ORAL TABLET 389466 PREDNISONE Inactive Advance Directives Directive Description Start [...] Panel - Chemistry sodium, serum 140 mmol/L 360-510 0721/11/01 carbon dioxide, venous blood 28.6 mmol/L 21.0-32 [...] mg/dL Encounters Code Encounter Date Provider Facility CPT-08632 [id number] Vst-Est Level IV 16:21:22 CDT Bru ce W Carlitos DO [facility] CPT-94305 Level 3 Est. Patient 15:18:36 CDT Becky Se ll ANNIE [facility] CPT-29721 90857-Yhg Vst-Est Level IV 10:06:35 CDT Bru robinson Urbina [facility] CPT-94745 23993-Sbm Vst-Est Level IV 10:52:00 [employer] Stephy Urbina [facility] CPT-09165 Level 3 Est. Patient 18:25:53 CDT Mitch Arnol luis [facility] CPT-76419 Level 3 Est. Patient 19:43:34 CDT Mitch Arnol luis [facility] CPT-92336 Level 4 Est. Patient 09:30:18 CDT Mitch Castellano janelle [facility] CPT-26510 Level 3 Est. Patient 15:10:14 CDT Joe yunangela [facility] CPT-23934 Level 3 Est. Patient 15:03:46 CDT Joe Gomez anh [facility] CPT-37333 Level 3 Est. Patient 14:21:06 CDT Mitch Arnol luis [facility] CPT-04851 Level 3 Est. Patient 14:52:06 CDT Joe Gomez anh [facility] CPT-52997 Level 3 Est. Patient 09:34:30 [employer] Mitch Arnol luis [facility] CPT-57617 Level 3 Est. Patient 09:37:15 CDT Mitch Arnol luis [facility] CPT-08043 Level 3 Est. Patient 17:01:00 [employer] Mitch Arnol luis [facility] CPT-30495 Level 3 Est. Patient 13:53:19 [employer] Mitch luis [facility] CPT-11263 Level 3 Est. Patient 19:19:37 [employer] Mitch Arnol luis [facility] CPT-94850 Level 3 Est. Patient 13:25:53 [employer] Tavo toure MD [facility] CPT-49111 Level 3 Est. Patient 18:17:28 CDT Mitch luis [facility] CPT-81879 Level 3 Est. Patient 15:22:57 CDT Mitch luis [facility] CPT-04498 Level 3 Est. Patient 18:21:50 CDT Mitch luis [facility] CPT-42454 Level 3 Est. Patient 18:20:38 CDT Mitch luis [facility] CPT-29210 Level 3 Est. Patient 15:37:55 CDT Mitch luis [facility] CPT-75044 Level 2 Est. Patient 15:54:44 CDT Carmine benton MD [facility]-38505 Level 3 Est. Patient 21:46:01 [employer] Mitch luis [facility] CPT-37904 Level 3 Est. Patient 22:15:50 CDT Mitch luis [facility] CPT-39281 Level 3 Est. Patient 10:48:15 CDT Mitch luis [facility] CPT-70144 Level 3 Est. Patient 23:20:57 CDT Tavo toure MD [facility] CPT-54065 Level 3 Est. Patient 16:26:13 CDT Mitch luis [facility] Procedures Code Procedure Name Date Entry Date Standard Desc ription CPT-15623 Venipuncture Draw Fee 08:26:21 CDT CPT-10636 Venous Duplex Left Leg XRAY USE ONLY 10:43:10 CDT CPT-51268 Venipuncture Draw Fee 17:04:55 CDT CPT-75361 Venipuncture Draw Fee 17:20:50 CDT CPT-54979 Venipuncture Draw Fee 18:00:48 CDT CPT-15893 Venipuncture Draw Fee 14:56:20 CDT CPT-JTINJ Asp/Joint Injection 18:47:02 CDT CPT-72563 Venipuncture Draw Fee 09:26:17 CDT CPT-98388 PT/INR - LAB USE ONLY 13:32:49 [employer] CPT-79055 Venipuncture Draw Fee 13:32:49 [employer] CPT-71932 PT/INR - LAB USE ONLY 10:34:49 [employer] CPT-74305 Venipuncture Draw Fee 10:34:48 [employer] CPT-94355 PT/INR - LAB USE ONLY 09:22:03 [employer] CPT-40057 Venipuncture Draw Fee 09:22:02 [employer] CPT-01627 Hemoccult IFOBT - LAB USE ONLY 10:27:22 CDT CPT-24579 Venipuncture Draw Fee 08:27:08 CDT CPT-40171 Liver Profile - LAB USE ONLY 08:27:07 CDT 2 CPT-67098 Microalbumin - LAB USE ONLY 08:27:07 CDT 20 25/05/09 CPT-11298 PT/INR - LAB USE ONLY 08:27:07 CDT CPT-97649 HGBA1C - LAB USE ONLY 08:27:07 CDT CPT-99535 CBC - LAB USE ONLY 08:27:07 CDT CPT-63851 Venipuncture Draw Fee 11:09:14 CDT CPT-99942 Venipuncture Draw Fee 08:32:21 [employer] CPT-49394 Venipuncture Draw Fee 09:38:56 [employer] CPT-85615 No Charge Offi Visit 21:36:07 CDT 1 CPT-23764 Venipuncture Draw Fee 10:13:28 [employer] CPT-11378 Venipuncture Draw Fee 08:31:11 CDT CPT-38274 Aspir/Inject Med Joint 18:17:28 CDT CPT-70473 Venipuncture Draw Fee 10:13:30 CDT CPT-08669 Venipuncture Draw Fee 08:31:43 [employer] CPT-JTINJ Joint Injection 18:34:50 CDT CPT-74973 Knee 3V 12:25:09 CDT CPT-18708 Venipuncture Draw Fee 12:15:57 CDT CPT-060 Medical Surveillance Exam 21:31:43 CDT 2011 CPT-28873 Venipuncture Draw Fee 08:32:05 [employer] CPT-OV Office Visit 18:19:06 CDT
--- OUTSIDE RECORDS SUMMARY | 2020-01-18 13:55 | XMS REPORT | Clinical Summary ---
[...] of unspecified type of vessel, [place] or graft EDEMA 782.3 Resolved Mitch Urbina [...] Urbina DO UNSPECIFIED ANEMIA ICD-285.9 Inactive Mitch Arnol Nona luis DO Malaise and fatigue ICD-780.79 Inactive Mitch Ambrose Carlitos Cough, chronic ICD-786.2 Inactive Mitch Tejeda O Sebaceous cyst, infected ICD-706.2 Inactive Mitch Urbina DO Cellulitis ICD-682.9 Inactive Mitch Arnol Carlitos 10/23 Influenza Vaccination for Prophylaxis ICD-V04.81 9 Inactive Bhumi Robles Medication List Medication Instructions Start Date Stop Date Generic Name NDC Status Provider Patient Instruction AMLODIPINE BESYLATE 5 MG ORAL TABLET 1 tablet by mouth daily 201 05/19/02 AMLODIPINE BESYLATE 78166329163 No Longer Active Maria Briones Active WARFARIN TABS 1MG TAKE 2 TABLETS (2 MG) DAILY WITH THE 5 MG TABLET TO EQUAL 7 MG DAILY WARFARIN SODIUM 91809816093 Active Maria Briones Active WARFARIN SODIUM 5 MG TABS TAKE 1 TABLET DAILY W ARFARIN SODIUM 57376174528 Active Allison PERERA Active KEFLEX 500 MG ORAL CAPSULE 1 capsule by mouth three times da rocky x10 days CEPHALEXIN 34770448171 Active Maria Rivas RN Active METOPROLOL TARTRATE TABS 50MG TAKE 1 TABLET TWICE A DAY ([facility]) METOPROLOL TARTRATE 98175679143 Active Maria Briones Active DOXAZOSIN MESYLATE 2 MG ORAL TABLET 1 po q day for pr ostate and blood pressure DOXAZOSIN MESYLATE 13917995056 Active Mitch Urbina DO Active LOSARTAN TABS 100MG TAKE 1 TABLET DAILY FOR BLOOD PRESSURE LOSARTAN POTASSIUM 49199696703 Active Maria Rivas RN Active FLUTICASONE PROPIONATE 50 MCG/ACT NASAL SUSPENSION 1 s pray each nostril twice daily for 1 week, then once daily FLUTICASONE WV OPIONATE 62914883178 Active 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 PREDNISONE 20 MG ORAL TABLET 2 tabs daily for 3 days 1 tab d aily for 3 days PREDNISONE 60742413896 No Longer Active 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 MINOXIDIL 2.5 MG ORAL TABLET 1 tablet twice daily for high b lood pressure MINOXIDIL 27372876009 Active Mitch Urbina DO Ac tive METFORMIN HCL ER 500 MG ORAL TABLET EXTENDED RELEASE 2 4 HOUR 2 tablets by mouth twice daily METFORMIN HCL 03641861979 Active Mitch Urbina DO Active GLIMEPIRIDE 4 MG ORAL TABLET 1 tablet by mouth twice daily f or diabetes GLIMEPIRIDE 90725218174 Active Mitch Urbina DO Active GLIMEPIRIDE 2 MG ORAL TABLET 1 po BID GLIMEPI RIDE 70476388026 No Longer Active Mitch Urbina DO Active PROVIGIL 200 MG ORAL TABLET 1/2 tab po q day MODA FINIL 54161848409 Active Maria Rivas RN Active FAMOTIDINE 20 MG ORAL TABLET by mouth twice a day 2017 FAMOTIDINE 37101781679 No Longer Active Mitch Urbina DO Active COLCRYS 0.6 MG ORAL TABLET 1 tab qid prn gout C OLCHICINE 72600634403 No Longer Active Mitch Urbina DO Active KEFLEX 500 MG ORAL CAPSULE 1 po qid CEPHALEXI N 44335130699 No Longer Active Mitch Urbina DO Active AMLODIPINE BESYLATE 5 MG ORAL TABLET 1 tablet by mouth daily 201 01/20/04 AMLODIPINE BESYLATE 02177259902 No Longer Active Joe fulton APRN Active MITIGARE 0.6 MG ORAL CAPSULE 2 capsules at onset of go ut pain, then take one capsule at 1 hour if symptoms persist. COLCHICINE 59 838251910 Active Mitch Urbina DO Active INVOKANA 100 MG ORAL TABLET 1 tablet orally daily CANAGLIFLOZIN 71127366979 Active Mitch Urbina DO Active MECLIZINE HCL 25 MG ORAL TABLET 1 po tid 3 days, then 1/2 ta b tid 3 days MECLIZINE HCL 91890528166 No Longer Active Corey SEGURA Active ALLOPURINOL 300 MG ORAL TABLET Take 1 tablet by mouth daily 2012 ALLOPURINOL 11023289506 No Longer Active Corey SEGURA Active CLONIDINE HCL 0.1 MG ORAL TABLET 1 po bid 7 days, then 1/2 t ab po bid 7 days CLONIDINE HCL 40125527396 No Longer Active Corey SEGURA Active COUMADIN 4 MG ORAL TABLET 1 tablet daily WARFAR IN SODIUM 80560403081 No Longer Active Corey SEGURA Active POLYTRIM 29480-5.1 UNIT/ML-% OPHTHALMIC SOLUTION 1 rui p in affected eye every 3 hours while awake x 7 days POLYMYXIN B-TRIMETHOP RIM 65483854485 No Longer Active Corey SEGURA Active LOSARTAN POTASSIUM-HCTZ 100-12.5 MG ORAL TABLET 1 by m outh daily for high blood pressure LOSARTAN POTASSIUM-HCTZ 97489485484 No Longer A ctive Mitch Urbina DO Active LISINOPRIL-HYDROCHLOROTHIAZIDE 20-12.5 MG ORAL TABLET 1 tab by m outh daily LISINOPRIL-HYDROCHLOROTHIAZIDE 30366783876 No Longer Active Mitch Urbina DO Active LISINOPRIL 20 MG ORAL TABLET 1 tab po at HS LIS INOPRIL 45539108576 No Longer Active Mitch Urbina DO Active COUMADIN 5 MG ORAL TABLET 1 by mouth every other day 2 WARFARIN SODIUM 64232018618 No Longer Active Mitch Urbina DO Active COUMADIN 6 MG ORAL TABLET 1 by mouth every other day 2 WARFARIN SODIUM 23458725740 No Longer Active Mitch Urbina DO Active SIMVASTATIN 40 MG ORAL TABLET 1 tab daily at bedtime SIMVASTATIN 56541983865 Active Maria Rivas RN Active SIMVASTATIN 20 MG ORAL TABLET 1 tab daily at bedtime 2 SIMVASTATIN 64059906166 No Longer Active Mitch Urbina DO Active LOVENOX 100 MG/ML SUBCUTANEOUS SOLUTION One injection twice a da y ENOXAPARIN SODIUM 38232116460 No Longer Active Carmine Yusuf MD Active JANUVIA 50 MG ORAL TABLET Take one by mouth daily SITAGLIPTIN PHOSPHATE 02788348560 Active Renee Oconnoreder DE LA ROSA Active JANUVIA 100 MG ORAL TABLET 1/2 by mouth every day 2011 SITAGLIPTIN PHOSPHATE 24965372982 No Longer Active Bijal Segal RN Acti ve METFORMIN HCL 500 MG ORAL TABLET 2 by mouth twice daily METFORMIN HCL 07691439317 No Longer Active Renee Oconnor LPN Active COLCRYS 0.6 MG ORAL TABLET 1 po q 6 hours prn gout pain COLCHICINE 20691524390 No Longer Active Camila Reese Active LISINOPRIL 5 MG ORAL TABLET 1 by mouth every day 11/17 LISINOPRIL 15538767997 No Longer Active Nguyen Perez Active KLOR-CON 20 MEQ ORAL PACKET Take one by mouth daily 09/10/08 POTASSIUM CHLORIDE 26263255978 No Longer Active Nguyen Perez Active FUROSEMIDE 40 MG ORAL TABLET 1 by mouth daily F UROSEMIDE 38463863901 No Longer Active Nguyen Perez Active PROVIGIL 100 MG ORAL TABLET Take one by mouth daily 08/20/04 MODAFINIL 15717462690 No Longer Active Mitch Urbina DO Active BACTRIM DS 800-160 MG ORAL TABLET 1 tab by mouth twice daily 201 10/19/09 TRIMETHOPRIM-SULFAMETHOXAZOLE 46361051048 No Longer Active C alberto Hays MD Active ADULT ASPIRIN LOW STRENGTH 81 MG ORAL TABLET DISINTEGR ATING 1 by mouth every daily ASPIRIN 45265656451 Active Mitch Urbina DO Ac tive BACTRIM DS 800-160 MG ORAL TABLET 1 tab by mouth twice daily 201 10/19/09 BACTRIM DS 800-160 MG ORAL TABLET 757735 TRIMETHOPRIM-SULFAMETHOXAZOLE Inactive PROVIGIL 100 MG ORAL TABLET Take one by mouth daily 08/20/04 PROVIGIL 100 MG ORAL TABLET 535508 MODAFINIL Inactive FUROSEMIDE 40 MG ORAL TABLET 1 by mouth daily FUROSEMIDE 40 MG ORAL TABLET 053775 FUROSEMIDE Inactive KLOR-CON 20 MEQ ORAL PACKET Take one by mouth daily 09/10/08 KLOR- CON 20 MEQ ORAL PACKET 1076818 POTASSIUM CHLORIDE Inactive LISINOPRIL 5 MG ORAL TABLET 1 by mouth every day 11/17 LISINOPRIL 5 MG ORAL TABLET 332658 LISINOPRIL Inactive COLCRYS 0.6 MG ORAL TABLET 1 po q 6 hours prn gout pain COLCRYS 0.6 MG ORAL TABLET 672277 COLCHICINE Inactive JANUVIA 100 MG ORAL TABLET 1/2 by mouth every day 2011 JANUVIA 100 MG ORAL TABLET SITAGLIPTIN PHOSPHATE Inactive SIMVASTATIN 20 MG ORAL TABLET 1 tab daily at bedtime 2 SIMVASTATIN 20 MG ORAL TABLET 145400 SIMVASTATIN Inactive COUMADIN 6 MG ORAL TABLET 1 by mouth every other day COUMADIN 6 MG ORAL TABLET 189006 WARFARIN SODIUM Inactive COUMADIN 5 MG ORAL TABLET 1 by mouth every other day 2 COUMADIN 5 MG ORAL TABLET 575790 WARFARIN SODIUM Inactive LISINOPRIL 20 MG ORAL TABLET 1 tab po at HS LISINOPRIL 20 MG ORAL TABLET 374601 LISINOPRIL Inactive LISINOPRIL-HYDROCHLOROTHIAZIDE 20-12.5 MG ORAL TABLET 1 tab by m outh daily LISINOPRIL-HYDROCHLOROTHIAZIDE 20-12.5 MG ORAL TABLET 544867 LISINOPRIL-HYDROCHLOROTHIAZIDE Inactive POLYTRIM 91286-7.1 UNIT/ML-% OPHTHALMIC SOLUTION 1 rui p in affected eye every 3 hours while awake x 7 days POLYTRIM 1000 0-0.1 UNIT/ML-% OPHTHALMIC SOLUTION 389648 POLYMYXIN B-TRIMETHOPRIM Inactive COUMADIN 4 MG ORAL TABLET 1 tablet daily COUMADIN 4 MG ORAL TABLET 524515 WARFARIN SODIUM Inactive CLONIDINE HCL 0.1 MG ORAL TABLET 1 po bid 7 days, then 1/2 t ab po bid 7 days CLONIDINE HCL 0.1 MG ORAL TABLET 126202 CLONIDIN E HCL Inactive ALLOPURINOL 300 MG ORAL TABLET Take 1 tablet by mouth daily 2012 ALLOPURINOL 300 MG ORAL TABLET 700955 ALLOPURINOL I nactive MECLIZINE HCL 25 MG ORAL TABLET 1 po tid 3 days, then 1/2 ta b tid 3 days MECLIZINE HCL 25 MG ORAL TABLET 472075 MECLIZINE HCL Inactive AMLODIPINE BESYLATE 5 MG ORAL TABLET 1 tablet by mouth daily 201 01/20/04 AMLODIPINE BESYLATE 5 MG ORAL TABLET 885360 AMLODIPINE BESYLATE Inactive KEFLEX 500 MG ORAL CAPSULE 1 po qid K EFLEX 500 MG ORAL CAPSULE 900147 CEPHALEXIN Inactive COLCRYS 0.6 MG ORAL TABLET 1 tab qid prn gout COLCRYS 0.6 MG ORAL TABLET 282702 COLCHICINE Inactive FAMOTIDINE 20 MG ORAL TABLET by mouth twice a day 2017 FAMOTIDINE 20 MG ORAL TABLET 367001 FAMOTIDINE Inactive GLIMEPIRIDE 2 MG ORAL TABLET 1 po BID GLIMEPIRIDE 2 MG ORAL TABLET 507424 GLIMEPIRIDE Inactive AMLODIPINE BESYLATE 5 MG ORAL TABLET 1 tablet by mouth daily 201 05/19/02 AMLODIPINE BESYLATE 5 MG ORAL TABLET 028994 AMLODIPINE BESYLATE Inactive LOVENOX 100 MG/ML SUBCUTANEOUS SOLUTION One injection twice a da y LOVENOX 100 MG/ML SUBCUTANEOUS SOLUTION 452136 ENOXAPAR IN SODIUM Inactive PREDNISONE 20 MG ORAL TABLET 2 tabs daily for 3 days 1 tab d aily for 3 days PREDNISONE 20 MG ORAL TABLET 900020 PREDNISONE Inactive Advance Directives Directive Description Start [...] Panel - Chemistry sodium, serum 140 mmol/L 491-226 3922/11/01 carbon dioxide, venous blood 28.6 mmol/L 21.0-32 [...] mg/dL Encounters Code Encounter Date Provider Facility CPT-59610 [id number] Vst-Est Level IV 16:21:22 CDT Bru robinson W [facility] CPT-67467 Level 3 Est. Patient 15:18:36 CDT Becky Se justin [facility] CPT-81629 [id number] Vst-Est Level IV 10:06:35 CDT Bru ce W [facility] CPT-40714 67119-Eze Vst-Est Level IV 10:52:00 TALENT REP Bru robinson W Carlitos [facility] CPT-83706 Level 3 Est. Patient 18:25:53 CDT Mitch luis [facility] CPT-02821 Level 3 Est. Patient 19:43:34 CDT Mitch luis [facility] CPT-93288 Level 4 Est. Patient 09:30:18 CDT Mitch luis [facility] CPT-68504 Level 3 Est. Patient 15:10:14 CDT Joe kamara [facility] CPT-09072 Level 3 Est. Patient 15:03:46 CDT Joe kamara [facility] CPT-64357 Level 3 Est. Patient 14:21:06 CDT Mitch luis [facility] CPT-43130 Level 3 Est. Patient 14:52:06 CDT Joe kamara [facility] CPT-16733 Level 3 Est. Patient 09:34:30 TALENT REP Mitch luis [facility] CPT-83567 Level 3 Est. Patient 09:37:15 CDT Mitch luis [facility] CPT-74315 Level 3 Est. Patient 17:01:00 TALENT REP Mitch luis [facility] CPT-48681 Level 3 Est. Patient 13:53:19 TALENT REP Mitch luis [facility] CPT-06709 Level 3 Est. Patient 19:19:37 TALENT REP Mitch luis [facility] CPT-29497 Level 3 Est. Patient 13:25:53 TALENT REP Tavo toure MD [facility] CPT-69042 Level 3 Est. Patient 18:17:28 CDT Mitch luis [facility] CPT-57685 Level 3 Est. Patient 15:22:57 CDT Mitch luis [facility] CPT-23558 Level 3 Est. Patient 18:21:50 CDT Mitch W L janelle [facility] CPT-09890 Level 3 Est. Patient 18:20:38 CDT Mitch W L janelle [facility] CPT-23579 Level 3 Est. Patient 15:37:55 CDT Mitch Ambrose L janelle [facility] CPT-86372 Level 2 Est. Patient 15:54:44 CDT Carmine benton MD [facility]-10408 Level 3 Est. Patient 21:46:01 TALENT REP Mitch luis [facility] CPT-24878 Level 3 Est. Patient 22:15:50 CDT Mitch luis [facility] CPT-30012 Level 3 Est. Patient 10:48:15 CDT Mitch luis [facility] CPT-98064 Level 3 Est. Patient 23:20:57 CDT Tavo toure MD [facility] CPT-04649 Level 3 Est. Patient 16:26:13 CDT Mitch Arnol luis [facility] Procedures Code Procedure Name Date Entry Date Standard Desc ription CPT-96294 Venipuncture Draw Fee 08:26:21 CDT CPT-46211 Venous Duplex Left Leg XRAY USE ONLY 10:43:10 CDT CPT-96626 Venipuncture Draw Fee 17:04:55 CDT CPT-77996 Venipuncture Draw Fee 17:20:50 CDT CPT-54747 Venipuncture Draw Fee 18:00:48 CDT CPT-82689 Venipuncture Draw Fee 14:56:20 CDT CPT-JTINJ Asp/Joint Injection 18:47:02 CDT CPT-16334 Venipuncture Draw Fee 09:26:17 CDT CPT-70137 PT/INR - LAB USE ONLY 13:32:49 TALENT REP CPT-65777 Venipuncture Draw Fee 13:32:49 TALENT REP CPT-16878 PT/INR - LAB USE ONLY 10:34:49 TALENT REP CPT-48672 Venipuncture Draw Fee 10:34:48 TALENT REP CPT-30840 PT/INR - LAB USE ONLY 09:22:03 TALENT REP CPT-94243 Venipuncture Draw Fee 09:22:02 TALENT REP CPT-06360 Hemoccult IFOBT - LAB USE ONLY 10:27:22 CDT CPT-18140 Venipuncture Draw Fee 08:27:08 CDT CPT-85046 Liver Profile - LAB USE ONLY 08:27:07 CDT 2 CPT-38549 Microalbumin - LAB USE ONLY 08:27:07 CDT 20 25/05/09 CPT-46436 PT/INR - LAB USE ONLY 08:27:07 CDT CPT-47310 HGBA1C - LAB USE ONLY 08:27:07 CDT CPT-70316 CBC - LAB USE ONLY 08:27:07 CDT CPT-87697 Venipuncture Draw Fee 11:09:14 CDT CPT-24994 Venipuncture Draw Fee 08:32:21 TALENT REP CPT-14665 Venipuncture Draw Fee 09:38:56 TALENT REP CPT-20045 No Charge Offi Visit 21:36:07 CDT 1 CPT-80056 Venipuncture Draw Fee 10:13:28 TALENT REP CPT-38417 Venipuncture Draw Fee 08:31:11 CDT CPT-74757 Aspir/Inject Med Joint 18:17:28 CDT CPT-90326 Venipuncture Draw Fee 10:13:30 CDT CPT-89134 Venipuncture Draw Fee 08:31:43 TALENT REP CPT-JTINJ Joint Injection 18:34:50 CDT CPT-88058 Knee 3V 12:25:09 CDT CPT-48456 Venipuncture Draw Fee 12:15:57 CDT CPT-060 Medical Surveillance Exam 21:31:43 CDT 2011 CPT-43238 Venipuncture Draw Fee 08:32:05 TALENT REP CPT-OV Office Visit 18:19:06 CDT
[2020-01-18] MEDS ORDERED: CLIN150C2 PO (13:56)
--- OUTSIDE RECORDS SUMMARY | 2020-01-18 13:56 | XMS REPORT | Clinical Summary ---
[...] by mouth daily 201 05/19/02 AMLODIPINE BESYLATE [id number] No Longer Active Maria Briones Active WARFARIN TABS 1MG TAKE 2 TABLETS (2 MG) DAILY WITH THE 5 MG TABLET TO EQUAL 7 MG DAILY WARFARIN SODIUM 30989566608 Active Maria Briones Active WARFARIN SODIUM 5 MG TABS TAKE 1 TABLET DAILY W ARFARIN SODIUM 11034966797 Active Allison PERERA Active KEFLEX 500 MG ORAL CAPSULE 1 capsule by mouth three times da rocky x10 days CEPHALEXIN 47912113477 Active Maria Rivas RN Active METOPROLOL TARTRATE TABS 50MG TAKE 1 TABLET TWICE A DAY ([facility]) METOPROLOL TARTRATE 45919536389 Active Maria Briones Active DOXAZOSIN MESYLATE 2 MG ORAL TABLET 1 po q day for pr ostate and blood pressure DOXAZOSIN MESYLATE 44746261845 Active Mitch Urbina DO Active LOSARTAN TABS 100MG TAKE 1 TABLET DAILY FOR BLOOD PRESSURE LOSARTAN POTASSIUM 81530022968 Active Maria Rivas RN Active FLUTICASONE PROPIONATE 50 MCG/ACT NASAL SUSPENSION 1 s pray each nostril twice daily for 1 week, then once daily FLUTICASONE TX OPIONATE 42412999274 Active Becky Sell INTERACTIVE ACCOUNT MANAGER Active PREDNISONE 20 MG ORAL TABLET 2 tabs daily for 3 days 1 tab d aily for 3 days PREDNISONE 02755201500 No Longer Active Becky Sell INTERACTIVE ACCOUNT MANAGER Active MINOXIDIL 2.5 MG ORAL TABLET 1 tablet twice daily for high b lood pressure MINOXIDIL 36895934866 Active Mitch Urbina DO Ac tive METFORMIN HCL ER 500 MG ORAL TABLET EXTENDED RELEASE 2 4 HOUR 2 tablets by mouth twice daily METFORMIN HCL 80284509761 Active Mitch Urbina DO Active GLIMEPIRIDE 4 MG ORAL TABLET 1 tablet by mouth twice daily f or diabetes GLIMEPIRIDE 87584920712 Active Mitch Urbina DO Active GLIMEPIRIDE 2 MG ORAL TABLET 1 po BID GLIMEPI RIDE 01514792504 No Longer Active Mitch Urbina DO Active PROVIGIL 200 MG ORAL TABLET 1/2 tab po q day MODA FINIL 37946742273 Active Maria Rivas RN Active FAMOTIDINE 20 MG ORAL TABLET by mouth twice a day 2017 FAMOTIDINE 33294614451 No Longer Active Mitch Urbina DO Active COLCRYS 0.6 MG ORAL TABLET 1 tab qid prn gout C OLCHICINE 58320217719 No Longer Active Mitch Urbina DO Active KEFLEX 500 MG ORAL CAPSULE 1 po qid CEPHALEXI N 31257258426 No Longer Active Mitch Urbina DO Active AMLODIPINE BESYLATE 5 MG ORAL TABLET 1 tablet by mouth daily 201 01/20/04 AMLODIPINE BESYLATE 93818510830 No Longer Active Joe fulton APRN Active MITIGARE 0.6 MG ORAL CAPSULE 2 capsules at onset of go ut pain, then take one capsule at 1 hour if symptoms persist. COLCHICINE 59 634007903 Active Mitch Urbina DO Active INVOKANA 100 MG ORAL TABLET 1 tablet orally daily CANAGLIFLOZIN 93145645555 Active Mitch Urbina DO Active MECLIZINE HCL 25 MG ORAL TABLET 1 po tid 3 days, then 1/2 ta b tid 3 days MECLIZINE HCL 37824915859 No Longer Active Corey SEGURA Active ALLOPURINOL 300 MG ORAL TABLET Take 1 tablet by mouth daily 2012 ALLOPURINOL 23285186402 No Longer Active Corey SEGURA Active CLONIDINE HCL 0.1 MG ORAL TABLET 1 po bid 7 days, then 1/2 t ab po bid 7 days CLONIDINE HCL 50097492987 No Longer Active Corey SEGURA Active COUMADIN 4 MG ORAL TABLET 1 tablet daily WARFAR IN SODIUM 19272353029 No Longer Active Corey SEGURA Active POLYTRIM 97261-8.1 UNIT/ML-% OPHTHALMIC SOLUTION 1 rui p in affected eye every 3 hours while awake x 7 days POLYMYXIN B-TRIMETHOP RIM 89675872939 No Longer Active Corey SEGURA Active LOSARTAN POTASSIUM-HCTZ 100-12.5 MG ORAL TABLET 1 by m outh daily for high blood pressure LOSARTAN POTASSIUM-HCTZ 64214819165 No Longer A ctive Mitch Urbina DO Active LISINOPRIL-HYDROCHLOROTHIAZIDE 20-12.5 MG ORAL TABLET 1 tab by m outh daily LISINOPRIL-HYDROCHLOROTHIAZIDE 57608959471 No Longer Active Mitch Urbina DO Active LISINOPRIL 20 MG ORAL TABLET 1 tab po at HS LIS INOPRIL 70211102334 No Longer Active Mitch Urbina DO Active COUMADIN 5 MG ORAL TABLET 1 by mouth every other day 2 WARFARIN SODIUM 18640091070 No Longer Active Mitch Urbina DO Active COUMADIN 6 MG ORAL TABLET 1 by mouth every other day 2 WARFARIN SODIUM 29609434173 No Longer Active Mitch Urbina DO Active SIMVASTATIN 40 MG ORAL TABLET 1 tab daily at bedtime SIMVASTATIN 39083188912 Active Maria Rivas RN Active SIMVASTATIN 20 MG ORAL TABLET 1 tab daily at bedtime 2 SIMVASTATIN 19518442205 No Longer Active Mitch Urbina DO Active LOVENOX 100 MG/ML SUBCUTANEOUS SOLUTION One injection twice a da y ENOXAPARIN SODIUM 13315569168 No Longer Active Carmine Yusuf MD Active JANUVIA 50 MG ORAL TABLET Take one by mouth daily SITAGLIPTIN PHOSPHATE 27462144990 Active Renee Oconnoreder DE LA ROSA Active JANUVIA 100 MG ORAL TABLET 1/2 by mouth every day 2011 SITAGLIPTIN PHOSPHATE 85026291734 No Longer Active Bijal Segal RN Acti ve METFORMIN HCL 500 MG ORAL TABLET 2 by mouth twice daily METFORMIN HCL 15922734423 No Longer Active Renee Oconnor LPN Active COLCRYS 0.6 MG ORAL TABLET 1 po q 6 hours prn gout pain COLCHICINE 75346480941 No Longer Active Camila Reese Active LISINOPRIL 5 MG ORAL TABLET 1 by mouth every day 11/17 LISINOPRIL 68241509893 No Longer Active Nguyen Perez Active KLOR-CON 20 MEQ ORAL PACKET Take one by mouth daily 09/10/08 POTASSIUM CHLORIDE 67578529709 No Longer Active Nguyen Perez Active FUROSEMIDE 40 MG ORAL TABLET 1 by mouth daily F UROSEMIDE 03062674015 No Longer Active Nguyen Perez Active PROVIGIL 100 MG ORAL TABLET Take one by mouth daily 08/20/04 MODAFINIL 01163723108 No Longer Active Mitch Urbina DO Active BACTRIM DS 800-160 MG ORAL TABLET 1 tab by mouth twice daily 201 10/19/09 TRIMETHOPRIM-SULFAMETHOXAZOLE 29509357372 No Longer Active C alberto Hays MD Active ADULT ASPIRIN LOW STRENGTH 81 MG ORAL TABLET DISINTEGR ATING 1 by mouth every daily ASPIRIN 12883740674 Active Mitch Urbina DO Ac tive BACTRIM DS 800-160 MG ORAL TABLET 1 tab by mouth twice daily 201 10/19/09 BACTRIM DS 800-160 MG ORAL TABLET 508443 TRIMETHOPRIM-SULFAMETHOXAZOLE Inactive PROVIGIL 100 MG ORAL TABLET Take one by mouth daily 08/20/04 PROVIGIL 100 MG ORAL TABLET 656531 MODAFINIL Inactive FUROSEMIDE 40 MG ORAL TABLET 1 by mouth daily FUROSEMIDE 40 MG ORAL TABLET 560141 FUROSEMIDE Inactive KLOR-CON 20 MEQ ORAL PACKET Take one by mouth daily 09/10/08 KLOR- CON 20 MEQ ORAL PACKET 6796706 POTASSIUM CHLORIDE Inactive LISINOPRIL 5 MG ORAL TABLET 1 by mouth every day 11/17 LISINOPRIL 5 MG ORAL TABLET 942655 LISINOPRIL Inactive COLCRYS 0.6 MG ORAL TABLET 1 po q 6 hours prn gout pain COLCRYS 0.6 MG ORAL TABLET 581404 COLCHICINE Inactive JANUVIA 100 MG ORAL TABLET 1/2 by mouth every day 2011 JANUVIA 100 MG ORAL TABLET SITAGLIPTIN PHOSPHATE Inactive SIMVASTATIN 20 MG ORAL TABLET 1 tab daily at bedtime 2 SIMVASTATIN 20 MG ORAL TABLET 166431 SIMVASTATIN Inactive COUMADIN 6 MG ORAL TABLET 1 by mouth every other day COUMADIN 6 MG ORAL TABLET 372571 WARFARIN SODIUM Inactive COUMADIN 5 MG ORAL TABLET 1 by mouth every other day 2 COUMADIN 5 MG ORAL TABLET 832685 WARFARIN SODIUM Inactive LISINOPRIL 20 MG ORAL TABLET 1 tab po at HS LISINOPRIL 20 MG ORAL TABLET 017489 LISINOPRIL Inactive LISINOPRIL-HYDROCHLOROTHIAZIDE 20-12.5 MG ORAL TABLET 1 tab by m outh daily LISINOPRIL-HYDROCHLOROTHIAZIDE 20-12.5 MG ORAL TABLET 058397 LISINOPRIL-HYDROCHLOROTHIAZIDE Inactive POLYTRIM 53244-7.1 UNIT/ML-% OPHTHALMIC SOLUTION 1 rui p in affected eye every 3 hours while awake x 7 days POLYTRIM 1000 0-0.1 UNIT/ML-% OPHTHALMIC SOLUTION 546451 POLYMYXIN B-TRIMETHOPRIM Inactive COUMADIN 4 MG ORAL TABLET 1 tablet daily COUMADIN 4 MG ORAL TABLET 468029 WARFARIN SODIUM Inactive CLONIDINE HCL 0.1 MG ORAL TABLET 1 po bid 7 days, then 1/2 t ab po bid 7 days CLONIDINE HCL 0.1 MG ORAL TABLET 091743 CLONIDIN E HCL Inactive ALLOPURINOL 300 MG ORAL TABLET Take 1 tablet by mouth daily 2012 ALLOPURINOL 300 MG ORAL TABLET 223008 ALLOPURINOL I nactive MECLIZINE HCL 25 MG ORAL TABLET 1 po tid 3 days, then 1/2 ta b tid 3 days MECLIZINE HCL 25 MG ORAL TABLET 418371 MECLIZINE HCL Inactive AMLODIPINE BESYLATE 5 MG ORAL TABLET 1 tablet by mouth daily 201 01/20/04 AMLODIPINE BESYLATE 5 MG ORAL TABLET 780315 AMLODIPINE BESYLATE Inactive KEFLEX 500 MG ORAL CAPSULE 1 po qid K EFLEX 500 MG ORAL CAPSULE 670975 CEPHALEXIN Inactive COLCRYS 0.6 MG ORAL TABLET 1 tab qid prn gout COLCRYS 0.6 MG ORAL TABLET 562932 COLCHICINE Inactive FAMOTIDINE 20 MG ORAL TABLET by mouth twice a day 2017 FAMOTIDINE 20 MG ORAL TABLET 972098 FAMOTIDINE Inactive GLIMEPIRIDE 2 MG ORAL TABLET 1 po BID GLIMEPIRIDE 2 MG ORAL TABLET 915591 GLIMEPIRIDE Inactive AMLODIPINE BESYLATE 5 MG ORAL TABLET 1 tablet by mouth daily 201 05/19/02 AMLODIPINE BESYLATE 5 MG ORAL TABLET 133055 AMLODIPINE BESYLATE Inactive LOVENOX 100 MG/ML SUBCUTANEOUS SOLUTION One injection twice a da y LOVENOX 100 MG/ML SUBCUTANEOUS SOLUTION 993210 ENOXAPAR IN SODIUM Inactive PREDNISONE 20 MG ORAL TABLET 2 tabs daily for 3 days 1 tab d aily for 3 days PREDNISONE 20 MG ORAL TABLET 204965 PREDNISONE Inactive Advance Directives Directive Description Start [...] Panel - Chemistry sodium, serum 140 mmol/L 611-647 8674/11/01 carbon dioxide, venous blood 28.6 mmol/L 21.0-32 [...] mg/dL Encounters Code Encounter Date Provider Facility CPT-[id number] Vst-Est Level IV 16:21:22 CDT Bru robinson [facility] CPT-99177 Level 3 Est. Patient 15:18:36 CDT Becky Se justin [facility] CPT-42768 [id number] Vst-Est Level IV 10:06:35 CDT Bru ce [facility] CPT-65438 [id number] Vst-Est Level IV 10:52:00 FRONT DESK RECEPTIONIST Bru robinson W [facility] CPT-45087 Level 3 Est. Patient 18:25:53 CDT Mitch luis [facility] CPT-79039 Level 3 Est. Patient 19:43:34 CDT Mitch luis [facility] CPT-43883 Level 4 Est. Patient 09:30:18 CDT Mitch luis [facility] CPT-71042 Level 3 Est. Patient 15:10:14 CDT Joe kamara [facility] CPT-19187 Level 3 Est. Patient 15:03:46 CDT Joe kamara [facility] CPT-14435 Level 3 Est. Patient 14:21:06 CDT iMtch luis [facility] CPT-27692 Level 3 Est. Patient 14:52:06 CDT Joe kamara [facility] CPT-11159 Level 3 Est. Patient 09:34:30 FRONT DESK RECEPTIONIST Mitch luis [facility] CPT-30346 Level 3 Est. Patient 09:37:15 CDT Mitch luis [facility] CPT-87085 Level 3 Est. Patient 17:01:00 FRONT DESK RECEPTIONIST Mitch luis [facility] CPT-33573 Level 3 Est. Patient 13:53:19 FRONT DESK RECEPTIONIST Mitch luis [facility] CPT-14150 Level 3 Est. Patient 19:19:37 FRONT DESK RECEPTIONIST Mitch luis [facility] CPT-90973 Level 3 Est. Patient 13:25:53 FRONT DESK RECEPTIONIST Tavo toure MD [facility] CPT-27265 Level 3 Est. Patient 18:17:28 CDT Mitch luis [facility] CPT-46382 Level 3 Est. Patient 15:22:57 CDT Mitch luis [facility] CPT-71056 Level 3 Est. Patient 18:21:50 CDT Mitch luis [facility] CPT-53260 Level 3 Est. Patient 18:20:38 CDT Mitch Ambrose L janelle [facility] CPT-29855 Level 3 Est. Patient 15:37:55 CDT Mitch luis [facility] CPT-60315 Level 2 Est. Patient 15:54:44 CDT Carmine benton MD [facility]-21784 Level 3 Est. Patient 21:46:01 FRONT DESK RECEPTIONIST Mitch luis [facility] CPT-85867 Level 3 Est. Patient 22:15:50 CDT Mitch luis [facility] CPT-04944 Level 3 Est. Patient 10:48:15 CDT Mitch luis [facility] CPT-64576 Level 3 Est. Patient 23:20:57 CDT Tavo toure MD [facility] CPT-27089 Level 3 Est. Patient 16:26:13 CDT Mitch Arnol luis [facility] Procedures Code Procedure Name Date Entry Date Standard Desc ription CPT-87928 Venipuncture Draw Fee 14:46:55 FRONT DESK RECEPTIONIST CPT-72405 Venipuncture Draw Fee 08:26:21 CDT CPT-20140 Venous Duplex Left Leg XRAY USE ONLY 10:43:10 CDT CPT-97180 Venipuncture Draw Fee 17:04:55 CDT CPT-12736 Venipuncture Draw Fee 17:20:50 CDT CPT-97101 Venipuncture Draw Fee 18:00:48 CDT CPT-01080 Venipuncture Draw Fee 14:56:20 CDT CPT-JTINJ Asp/Joint Injection 18:47:02 CDT CPT-18192 Venipuncture Draw Fee 09:26:17 CDT CPT-98972 PT/INR - LAB USE ONLY 13:32:49 FRONT DESK RECEPTIONIST CPT-53829 Venipuncture Draw Fee 13:32:49 FRONT DESK RECEPTIONIST CPT-55265 PT/INR - LAB USE ONLY 10:34:49 FRONT DESK RECEPTIONIST CPT-19517 Venipuncture Draw Fee 10:34:48 FRONT DESK RECEPTIONIST CPT-02255 PT/INR - LAB USE ONLY 09:22:03 FRONT DESK RECEPTIONIST CPT-36047 Venipuncture Draw Fee 09:22:02 FRONT DESK RECEPTIONIST CPT-06618 Hemoccult IFOBT - LAB USE ONLY 10:27:22 CDT CPT-87572 Venipuncture Draw Fee 08:27:08 CDT CPT-04886 Liver Profile - LAB USE ONLY 08:27:07 CDT 2 CPT-87842 Microalbumin - LAB USE ONLY 08:27:07 CDT 20 25/05/09 CPT-08725 PT/INR - LAB USE ONLY 08:27:07 CDT CPT-89746 HGBA1C - LAB USE ONLY 08:27:07 CDT CPT-38495 CBC - LAB USE ONLY 08:27:07 CDT CPT-24493 Venipuncture Draw Fee 11:09:14 CDT CPT-66276 Venipuncture Draw Fee 08:32:21 FRONT DESK RECEPTIONIST CPT-70920 Venipuncture Draw Fee 09:38:56 FRONT DESK RECEPTIONIST CPT-87667 No Charge Offi Visit 21:36:07 CDT 1 CPT-08300 Venipuncture Draw Fee 10:13:28 FRONT DESK RECEPTIONIST CPT-26603 Venipuncture Draw Fee 08:31:11 CDT CPT-82955 Aspir/Inject Med Joint 18:17:28 CDT CPT-87429 Venipuncture Draw Fee 10:13:30 CDT CPT-66459 Venipuncture Draw Fee 08:31:43 FRONT DESK RECEPTIONIST CPT-JTINJ Joint Injection 18:34:50 CDT CPT-12880 Knee 3V 12:25:09 CDT CPT-31584 Venipuncture Draw Fee 12:15:57 CDT CPT-060 Medical Surveillance Exam 21:31:43 CDT 2011 CPT-00176 Venipuncture Draw Fee 08:32:05 FRONT DESK RECEPTIONIST CPT-OV Office Visit 18:19:06 CDT
--- OUTSIDE RECORDS SUMMARY | 2020-01-18 13:56 | XMS REPORT | Clinical Summary ---
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 Inactive Mitch Urbina DO REACTIVE [...] DO UNSPECIFIED ANEMIA ICD-285.9 Inactive Mitch Arnol L ee DO Malaise and fatigue ICD-780.79 Inactive Mitch Urbina DO Cough, chronic ICD-786.2 Inactive Mitch Christy Sebaceous cyst, infected ICD-706.2 Inactive Mitch Urbina DO Cellulitis ICD-682.9 Inactive Mitch Urbina DO 10/23 Influenza Vaccination for Prophylaxis ICD-V04.81 9 Inactive Bhumi Robles CELLULITIS, GROIN, LEFT ICD-682.2 Inactive Zoya Urbina DO Medication List Medication Instructions Start Date Stop Date Generic Name NDC Status Provider Patient Instruction AMLODIPINE BESYLATE 5 MG ORAL TABLET 1 tablet by mouth daily 201 05/19/02 AMLODIPINE BESYLATE 14763057085 No Longer Active Maria Briones Active WARFARIN TABS 1MG TAKE 2 TABLETS (2 MG) DAILY WITH THE 5 MG TABLET TO EQUAL 7 MG DAILY WARFARIN SODIUM 90983124255 Active Maria Briones Active WARFARIN SODIUM 5 MG TABS TAKE 1 TABLET DAILY W ARFARIN SODIUM 19386933367 Active Allison PERERA Active KEFLEX 500 MG ORAL CAPSULE 1 capsule by mouth three times da rocky x10 days CEPHALEXIN 05618835931 No Longer Active Maria landaverde RN Active METOPROLOL TARTRATE TABS 50MG TAKE 1 TABLET TWICE A DAY ([facility]) METOPROLOL TARTRATE 92556297269 Active Maria Briones Active DOXAZOSIN MESYLATE 2 MG ORAL TABLET 1 po q day for pr ostate and blood pressure DOXAZOSIN MESYLATE 99222853439 Active Mitch Urbina DO Active LOSARTAN TABS 100MG TAKE 1 TABLET DAILY FOR BLOOD PRESSURE LOSARTAN POTASSIUM 41551064114 Active Maria Rivas RN Active FLUTICASONE PROPIONATE 50 MCG/ACT NASAL SUSPENSION 1 s pray each nostril twice daily for 1 week, then once daily FLUTICASONE GA OPIONATE 96786718542 Active Becky Sell IT APPLICATIONS ANALYST Active PREDNISONE 20 MG ORAL TABLET 2 tabs daily for 3 days 1 tab d aily for 3 days PREDNISONE 23443382478 No Longer Active Becky Sell IT APPLICATIONS ANALYST Active MINOXIDIL 2.5 MG ORAL TABLET 1 tablet twice daily for high b lood pressure MINOXIDIL 53815129847 Active Mitch Urbina DO Ac tive METFORMIN HCL ER 500 MG ORAL TABLET EXTENDED RELEASE 2 4 HOUR 2 tablets by mouth twice daily METFORMIN HCL 38877966647 Active Mitch Urbina DO Active GLIMEPIRIDE 4 MG ORAL TABLET 1 tablet by mouth twice daily f or diabetes GLIMEPIRIDE 25286794727 Active Mitch Urbina DO Active GLIMEPIRIDE 2 MG ORAL TABLET 1 po BID GLIMEPI RIDE 78829503399 No Longer Active Mitch Urbina DO Active PROVIGIL 200 MG ORAL TABLET 1/2 tab po q day MODA FINIL 96629431421 Active Maria Rivas RN Active FAMOTIDINE 20 MG ORAL TABLET by mouth twice a day 2017 FAMOTIDINE 56302658616 No Longer Active Mitch Urbina DO Active COLCRYS 0.6 MG ORAL TABLET 1 tab qid prn gout C OLCHICINE 00282884326 No Longer Active Mitch Urbina DO Active KEFLEX 500 MG ORAL CAPSULE 1 po qid CEPHALEXI N 99526861327 No Longer Active Mitch Urbina DO Active AMLODIPINE BESYLATE 5 MG ORAL TABLET 1 tablet by mouth daily 201 01/20/04 AMLODIPINE BESYLATE 82035065398 No Longer Active Joe fulton APRN Active MITIGARE 0.6 MG ORAL CAPSULE 2 capsules at onset of go ut pain, then take one capsule at 1 hour if symptoms persist. COLCHICINE 59 293218423 Active Mitch Urbina DO Active INVOKANA 100 MG ORAL TABLET 1 tablet orally daily CANAGLIFLOZIN 56893506697 Active Mitch Urbina DO Active MECLIZINE HCL 25 MG ORAL TABLET 1 po tid 3 days, then 1/2 ta b tid 3 days MECLIZINE HCL 44310793274 No Longer Active Corey SEGURA Active ALLOPURINOL 300 MG ORAL TABLET Take 1 tablet by mouth daily 2012 ALLOPURINOL 21866561262 No Longer Active Corey SEGURA Active CLONIDINE HCL 0.1 MG ORAL TABLET 1 po bid 7 days, then 1/2 t ab po bid 7 days CLONIDINE HCL 03076763594 No Longer Active Corey SEGURA Active COUMADIN 4 MG ORAL TABLET 1 tablet daily WARFAR IN SODIUM 44298625538 No Longer Active Corey SEGURA Active POLYTRIM 05331-3.1 UNIT/ML-% OPHTHALMIC SOLUTION 1 rui p in affected eye every 3 hours while awake x 7 days POLYMYXIN B-TRIMETHOP RIM 08972713469 No Longer Active Corey SEGUAR Active LOSARTAN POTASSIUM-HCTZ 100-12.5 MG ORAL TABLET 1 by m outh daily for high blood pressure LOSARTAN POTASSIUM-HCTZ 41140487178 No Longer A ctive Mitch Urbina DO Active LISINOPRIL-HYDROCHLOROTHIAZIDE 20-12.5 MG ORAL TABLET 1 tab by m outh daily LISINOPRIL-HYDROCHLOROTHIAZIDE 27278533051 No Longer Active Mitch Urbina DO Active LISINOPRIL 20 MG ORAL TABLET 1 tab po at HS LIS INOPRIL 27987282377 No Longer Active Mitch Urbina DO Active COUMADIN 5 MG ORAL TABLET 1 by mouth every other day 2 WARFARIN SODIUM 01460868879 No Longer Active Mitch Urbina DO Active COUMADIN 6 MG ORAL TABLET 1 by mouth every other day 2 WARFARIN SODIUM 29271211971 No Longer Active Mitch Urbina DO Active SIMVASTATIN 40 MG ORAL TABLET 1 tab daily at bedtime SIMVASTATIN 36009899302 Active Maria Rivas RN Active SIMVASTATIN 20 MG ORAL TABLET 1 tab daily at bedtime 2 SIMVASTATIN 31332695991 No Longer Active Mitch Urbina DO Active LOVENOX 100 MG/ML SUBCUTANEOUS SOLUTION One injection twice a da y ENOXAPARIN SODIUM 29897340717 No Longer Active Carmine Yusuf MD Active JANUVIA 50 MG ORAL TABLET Take one by mouth daily SITAGLIPTIN PHOSPHATE 74488046286 Active Renee Oconnoreder DE LA ROSA Active JANUVIA 100 MG ORAL TABLET 1/2 by mouth every day 2011 SITAGLIPTIN PHOSPHATE 01025492002 No Longer Active Bijal Segal RN Acti ve METFORMIN HCL 500 MG ORAL TABLET 2 by mouth twice daily METFORMIN HCL 23477286154 No Longer Active Renee Oconnor LPN Active COLCRYS 0.6 MG ORAL TABLET 1 po q 6 hours prn gout pain COLCHICINE 10251574156 No Longer Active Camila Reese Active LISINOPRIL 5 MG ORAL TABLET 1 by mouth every day 11/17 LISINOPRIL 11644304092 No Longer Active Nguyen Perez Active KLOR-CON 20 MEQ ORAL PACKET Take one by mouth daily 20 09/10/08 POTASSIUM CHLORIDE 86336585804 No Longer Active Nguyen Perez Active FUROSEMIDE 40 MG ORAL TABLET 1 by mouth daily F UROSEMIDE 27096405191 No Longer Active Nguyen Perez Active PROVIGIL 100 MG ORAL TABLET Take one by mouth daily 20 08/20/04 MODAFINIL 42216969176 No Longer Active Mitch Urbina DO Active BACTRIM DS 800-160 MG ORAL TABLET 1 tab by mouth twice daily 201 10/19/09 TRIMETHOPRIM-SULFAMETHOXAZOLE 20584838893 No Longer Active C alberto Hays MD Active ADULT ASPIRIN LOW STRENGTH 81 MG ORAL TABLET DISINTEGR ATING 1 by mouth every daily ASPIRIN 95924691022 Active Mitch Urbina DO Ac tive BACTRIM DS 800-160 MG ORAL TABLET 1 tab by mouth twice daily 201 10/19/09 BACTRIM DS 800-160 MG ORAL TABLET 672083 TRIMETHOPRIM-SULFAMETHOXAZOLE Inactive PROVIGIL 100 MG ORAL TABLET Take one by mouth daily 08/20/04 PROVIGIL 100 MG ORAL TABLET 979030 MODAFINIL Inactive FUROSEMIDE 40 MG ORAL TABLET 1 by mouth daily FUROSEMIDE 40 MG ORAL TABLET 084722 FUROSEMIDE Inactive KLOR-CON 20 MEQ ORAL PACKET Take one by mouth daily 09/10/08 KLOR- CON 20 MEQ ORAL PACKET 0999044 POTASSIUM CHLORIDE Inactive LISINOPRIL 5 MG ORAL TABLET 1 by mouth every day 11/17 LISINOPRIL 5 MG ORAL TABLET 968257 LISINOPRIL Inactive COLCRYS 0.6 MG ORAL TABLET 1 po q 6 hours prn gout pain COLCRYS 0.6 MG ORAL TABLET 986641 COLCHICINE Inactive JANUVIA 100 MG ORAL TABLET 1/2 by mouth every day 2011 JANUVIA 100 MG ORAL TABLET SITAGLIPTIN PHOSPHATE Inactive SIMVASTATIN 20 MG ORAL TABLET 1 tab daily at bedtime 2 SIMVASTATIN 20 MG ORAL TABLET 842732 SIMVASTATIN Inactive COUMADIN 6 MG ORAL TABLET 1 by mouth every other day COUMADIN 6 MG ORAL TABLET 229955 WARFARIN SODIUM Inactive COUMADIN 5 MG ORAL TABLET 1 by mouth every other day COUMADIN 5 MG ORAL TABLET 916733 WARFARIN SODIUM Inactive LISINOPRIL 20 MG ORAL TABLET 1 tab po at HS LISINOPRIL 20 MG ORAL TABLET 999376 LISINOPRIL Inactive LISINOPRIL-HYDROCHLOROTHIAZIDE 20-12.5 MG ORAL TABLET 1 tab by m outh daily LISINOPRIL-HYDROCHLOROTHIAZIDE 20-12.5 MG ORAL TABLET 569832 LISINOPRIL-HYDROCHLOROTHIAZIDE Inactive POLYTRIM 23032-0.1 UNIT/ML-% OPHTHALMIC SOLUTION 1 rui p in affected eye every 3 hours while awake x 7 days POLYTRIM 1000 0-0.1 UNIT/ML-% OPHTHALMIC SOLUTION 667982 POLYMYXIN B-TRIMETHOPRIM Inactive COUMADIN 4 MG ORAL TABLET 1 tablet daily COUMADIN 4 MG ORAL TABLET 036998 WARFARIN SODIUM Inactive CLONIDINE HCL 0.1 MG ORAL TABLET 1 po bid 7 days, then 1/2 t ab po bid 7 days CLONIDINE HCL 0.1 MG ORAL TABLET 061197 CLONIDIN E HCL Inactive ALLOPURINOL 300 MG ORAL TABLET Take 1 tablet by mouth daily 2012 ALLOPURINOL 300 MG ORAL TABLET 196090 ALLOPURINOL I nactive MECLIZINE HCL 25 MG ORAL TABLET 1 po tid 3 days, then 1/2 ta b tid 3 days MECLIZINE HCL 25 MG ORAL TABLET 440114 MECLIZINE HCL Inactive AMLODIPINE BESYLATE 5 MG ORAL TABLET 1 tablet by mouth daily 201 01/20/04 AMLODIPINE BESYLATE 5 MG ORAL TABLET 688076 AMLODIPINE BESYLATE Inactive KEFLEX 500 MG ORAL CAPSULE 1 po qid K EFLEX 500 MG ORAL CAPSULE 371815 CEPHALEXIN Inactive COLCRYS 0.6 MG ORAL TABLET 1 tab qid prn gout COLCRYS 0.6 MG ORAL TABLET 252154 COLCHICINE Inactive FAMOTIDINE 20 MG ORAL TABLET by mouth twice a day 2017 FAMOTIDINE 20 MG ORAL TABLET 668747 FAMOTIDINE Inactive GLIMEPIRIDE 2 MG ORAL TABLET 1 po BID GLIMEPIRIDE 2 MG ORAL TABLET 086179 GLIMEPIRIDE Inactive AMLODIPINE BESYLATE 5 MG ORAL TABLET 1 tablet by mouth daily 201 05/19/02 AMLODIPINE BESYLATE 5 MG ORAL TABLET 111766 AMLODIPINE BESYLATE Inactive LOVENOX 100 MG/ML SUBCUTANEOUS SOLUTION One injection twice a da y LOVENOX 100 MG/ML SUBCUTANEOUS SOLUTION 800994 ENOXAPAR IN SODIUM Inactive PREDNISONE 20 MG ORAL TABLET 2 tabs daily for 3 days 1 tab d aily for 3 days PREDNISONE 20 MG ORAL TABLET 568164 PREDNISONE Inactive KEFLEX 500 MG ORAL CAPSULE 1 capsule by mouth three times da rocky x10 days KEFLEX 500 MG ORAL CAPSULE 093410 CEPHALEXIN I nactive Advance Directives Directive Description [...] - Chem istry sodium, serum 138 mmol/L 984-774 3168/11/07 potassium, serum 4.5 mmol/L 3.5-5.2 chloride, serum [...] Panel - Chemistry sodium, serum 140 mmol/L 394-473 0250/11/01 carbon dioxide, venous blood 28.6 mmol/L 21.0-32 [...] mg/dL Encounters Code Encounter Date Provider Facility CPT-80689 [id number] Vst-Est Level IV 16:21:22 CDT Stephy Ambrose [facility] CPT-85844 Level 3 Est. Patient 15:18:36 CDT Becky anderson [facility] CPT-76373 74900-Uva Vst-Est Level IV 10:06:35 CDT Stephy Ambrose [facility]-85295 21247-Nyl Vst-Est Level IV 10:52:00 ENRICHMENT DIRECTOR Stephy Ambrose [facility] CPT-66234 Level 3 Est. Patient 18:25:53 CDT Mitch luis [facility] CPT-20617 Level 3 Est. Patient 19:43:34 CDT Mitch luis [facility] CPT-53016 Level 4 Est. Patient 09:30:18 CDT Mitch luis [facility] CPT-29592 Level 3 Est. Patient 15:10:14 CDT Joe kamara [facility]-58023 Level 3 Est. Patient 15:03:46 CDT Joe kamara [facility] CPT-79045 Level 3 Est. Patient 14:21:06 CDT Mitch Arnol L ee [facility]-23077 Level 3 Est. Patient 14:52:06 CDT Joe kamara [facility]-34351 Level 3 Est. Patient 09:34:30 ENRICHMENT DIRECTOR Mitch W L ee [facility]-04122 Level 3 Est. Patient 09:37:15 CDT Mitch W L ee [facility]-03320 Level 3 Est. Patient 17:01:00 ENRICHMENT DIRECTOR Mitch W L ee [facility] CPT-46248 Level 3 Est. Patient 13:53:19 ENRICHMENT DIRECTOR Mitch W L ee [facility] CPT-12933 Level 3 Est. Patient 19:19:37 ENRICHMENT DIRECTOR Mitch W L janelle [facility] CPT-91533 Level 3 Est. Patient 13:25:53 ENRICHMENT DIRECTOR Tavo toure MD [facility]-25386 Level 3 Est. Patient 18:17:28 CDT Mitch W L ee [facility] CPT-86419 Level 3 Est. Patient 15:22:57 CDT Mitch W L ee [facility]-67733 Level 3 Est. Patient 18:21:50 CDT Mitch W L ee [facility]-09284 Level 3 Est. Patient 18:20:38 CDT Mitch W L ee [facility] CPT-41529 Level 3 Est. Patient 15:37:55 CDT Mitch W L ee [facility] CPT-95568 Level 2 Est. Patient 15:54:44 CDT Carmine benton MD [facility]-96785 Level 3 Est. Patient 21:46:01 ENRICHMENT DIRECTOR Mitch W L ee [facility] CPT-76049 Level 3 Est. Patient 22:15:50 CDT Mitch luis [facility] CPT-26804 Level 3 Est. Patient 10:48:15 CDT Mitch luis [facility] CPT-22205 Level 3 Est. Patient 23:20:57 CDT Tavo toure MD [facility] CPT-61813 Level 3 Est. Patient 16:26:13 CDT Mitch luis [facility] Procedures Code Procedure Name Date Entry Date Standard Desc ription CPT-26596 Venipuncture Draw Fee 14:46:55 ENRICHMENT DIRECTOR CPT-82400 Venipuncture Draw Fee 08:26:21 CDT CPT-65899 Venous Duplex Left Leg XRAY USE ONLY 10:43:10 CDT CPT-32873 Venipuncture Draw Fee 17:04:55 CDT CPT-04886 Venipuncture Draw Fee 17:20:50 CDT CPT-44321 Venipuncture Draw Fee 18:00:48 CDT CPT-93632 Venipuncture Draw Fee 14:56:20 CDT CPT-JTINJ Asp/Joint Injection 18:47:02 CDT CPT-64315 Venipuncture Draw Fee 09:26:17 CDT CPT-62266 PT/INR - LAB USE ONLY 13:32:49 ENRICHMENT DIRECTOR CPT-71611 Venipuncture Draw Fee 13:32:49 ENRICHMENT DIRECTOR CPT-00269 PT/INR - LAB USE ONLY 10:34:49 ENRICHMENT DIRECTOR CPT-90865 Venipuncture Draw Fee 10:34:48 ENRICHMENT DIRECTOR CPT-80348 PT/INR - LAB USE ONLY 09:22:03 ENRICHMENT DIRECTOR CPT-07330 Venipuncture Draw Fee 09:22:02 ENRICHMENT DIRECTOR CPT-80666 Hemoccult IFOBT - LAB USE ONLY 10:27:22 CDT CPT-47213 Venipuncture Draw Fee 08:27:08 CDT CPT-71297 Liver Profile - LAB USE ONLY 08:27:07 CDT 2 CPT-83644 Microalbumin - LAB USE ONLY 08:27:07 CDT 20 25/05/09 CPT-79332 PT/INR - LAB USE ONLY 08:27:07 CDT CPT-99289 HGBA1C - LAB USE ONLY 08:27:07 CDT CPT-45401 CBC - LAB USE ONLY 08:27:07 CDT CPT-84827 Venipuncture Draw Fee 11:09:14 CDT CPT-06751 Venipuncture Draw Fee 08:32:21 ENRICHMENT DIRECTOR CPT-89431 Venipuncture Draw Fee 09:38:56 ENRICHMENT DIRECTOR CPT-60186 No Charge Offi Visit 21:36:07 CDT 1 CPT-85009 Venipuncture Draw Fee 10:13:28 ENRICHMENT DIRECTOR CPT-04033 Venipuncture Draw Fee 08:31:11 CDT CPT-38765 Aspir/Inject Med Joint 18:17:28 CDT CPT-27136 Venipuncture Draw Fee 10:13:30 CDT CPT-89705 Venipuncture Draw Fee 08:31:43 ENRICHMENT DIRECTOR CPT-JTINJ Joint Injection 18:34:50 CDT CPT-70517 Knee 3V 12:25:09 CDT CPT-92382 Venipuncture Draw Fee 12:15:57 CDT CPT-060 Medical Surveillance Exam 21:31:43 CDT 2011 CPT-39581 Venipuncture Draw Fee 08:32:05 ENRICHMENT DIRECTOR CPT-OV Office Visit 18:19:06 CDT
--- OUTSIDE RECORDS SUMMARY | 2020-01-18 13:57 | XMS REPORT | Clinical Summary ---
[...] Coronary atherosclerosis of unspecified type of vessel, iqugmiut or graft EDEMA 782.3 Resolved Mitch Urbina [...] RIGHT WRIST ICD-274.9 Inactive Mitch Ambrose Lenore pocne DO BRUISE ICD-924.9 Inactive Mitch Urbina DO OLECRANON BURSITIS, RIGHT ICD-726.33 Inactive Mitch Urbina DO UNSPECIFIED ANEMIA ICD-285.9 Inactive Mitch Arnol Castellano janelle VELASQUEZ Malaise and fatigue ICD-780.79 Inactive Mitch Urbina DO Cough, chronic ICD-786.2 Inactive Mitch Arnol Carlitos Tejeda O Sebaceous cyst, infected ICD-706.2 Inactive Mitch Arnol Carlitos Cellulitis ICD-682.9 Inactive Mitch Ambrose Carlitos 10/23 Influenza Vaccination for Prophylaxis ICD-V04.81 9 Inactive Bhumi Robles Medication List Medication Instructions Start Date Stop Date Generic Name NDC Status Provider Patient Instruction AMLODIPINE BESYLATE 5 MG ORAL TABLET 1 tablet by mouth daily 201 05/19/02 AMLODIPINE BESYLATE 74377159520 No Longer Active Maria Briones Active WARFARIN TABS 1MG TAKE 2 TABLETS (2 MG) DAILY WITH THE 5 MG TABLET TO EQUAL 7 MG DAILY WARFARIN SODIUM 81266401257 Active Maria Briones Active WARFARIN SODIUM 5 MG TABS TAKE 1 TABLET DAILY W ARFARIN SODIUM 43070599099 Active Allison PERERA Active KEFLEX 500 MG ORAL CAPSULE 1 capsule by mouth three times da rocky x10 days CEPHALEXIN 82424404760 No Longer Active Maria landaverde RN Active METOPROLOL TARTRATE TABS 50MG TAKE 1 TABLET TWICE A DAY ([facility]) METOPROLOL TARTRATE 23183828394 Active Maria Briones Active DOXAZOSIN MESYLATE 2 MG ORAL TABLET 1 po q day for pr ostate and blood pressure DOXAZOSIN MESYLATE 35235118658 Active Mitch Urbina DO Active LOSARTAN TABS 100MG TAKE 1 TABLET DAILY FOR BLOOD PRESSURE LOSARTAN POTASSIUM 11165103608 Active Maria Rivas RN Active FLUTICASONE PROPIONATE 50 MCG/ACT NASAL SUSPENSION 1 s pray each nostril twice daily for 1 week, then once daily FLUTICASONE NV OPIONATE 76937583303 Active Becky Sell RESEARCH SUBJECT Active PREDNISONE 20 MG ORAL TABLET 2 tabs daily for 3 days 1 tab d aily for 3 days PREDNISONE 75364126113 No Longer Active Becky Sell RESEARCH SUBJECT Active MINOXIDIL 2.5 MG ORAL TABLET 1 tablet twice daily for high b lood pressure MINOXIDIL 46209756956 Active Mitch Urbina DO Ac tive METFORMIN HCL ER 500 MG ORAL TABLET EXTENDED RELEASE 2 4 HOUR 2 tablets by mouth twice daily METFORMIN HCL 99670814505 Active Mitch Urbina DO Active GLIMEPIRIDE 4 MG ORAL TABLET 1 tablet by mouth twice daily f or diabetes GLIMEPIRIDE 15235719107 Active Mitch Urbina DO Active GLIMEPIRIDE 2 MG ORAL TABLET 1 po BID GLIMEPI RIDE 26420933897 No Longer Active Mitch Urbina DO Active PROVIGIL 200 MG ORAL TABLET 1/2 tab po q day MODA FINIL 75818596884 Active Maria Rivas RN Active FAMOTIDINE 20 MG ORAL TABLET by mouth twice a day 2017 FAMOTIDINE 02363753061 No Longer Active Mitch Urbina DO Active COLCRYS 0.6 MG ORAL TABLET 1 tab qid prn gout C OLCHICINE 24839951845 No Longer Active Mitch Urbina DO Active KEFLEX 500 MG ORAL CAPSULE 1 po qid CEPHALEXI N 63734604645 No Longer Active Mitch Urbina DO Active AMLODIPINE BESYLATE 5 MG ORAL TABLET 1 tablet by mouth daily 201 01/20/04 AMLODIPINE BESYLATE 13396407176 No Longer Active Joe fulton APRN Active MITIGARE 0.6 MG ORAL CAPSULE 2 capsules at onset of go ut pain, then take one capsule at 1 hour if symptoms persist. COLCHICINE 59 163335201 Active Mitch Urbina DO Active INVOKANA 100 MG ORAL TABLET 1 tablet orally daily CANAGLIFLOZIN 17793413926 Active Mitch Urbina DO Active MECLIZINE HCL 25 MG ORAL TABLET 1 po tid 3 days, then 1/2 ta b tid 3 days MECLIZINE HCL 98850436827 No Longer Active Corey SEGURA Active ALLOPURINOL 300 MG ORAL TABLET Take 1 tablet by mouth daily 2012 ALLOPURINOL 19054387832 No Longer Active Corey SEGURA Active CLONIDINE HCL 0.1 MG ORAL TABLET 1 po bid 7 days, then 1/2 t ab po bid 7 days CLONIDINE HCL 17026173689 No Longer Active Corey SEGURA Active COUMADIN 4 MG ORAL TABLET 1 tablet daily WARFAR IN SODIUM 55577403826 No Longer Active Corey SEGURA Active POLYTRIM 75686-1.1 UNIT/ML-% OPHTHALMIC SOLUTION 1 rui p in affected eye every 3 hours while awake x 7 days POLYMYXIN B-TRIMETHOP RIM 60221390625 No Longer Active Corey SEGURA Active LOSARTAN POTASSIUM-HCTZ 100-12.5 MG ORAL TABLET 1 by m outh daily for high blood pressure LOSARTAN POTASSIUM-HCTZ 61920512511 No Longer A ctive Mitch Urbina DO Active LISINOPRIL-HYDROCHLOROTHIAZIDE 20-12.5 MG ORAL TABLET 1 tab by m outh daily LISINOPRIL-HYDROCHLOROTHIAZIDE 55818124421 No Longer Active Mitch Urbina DO Active LISINOPRIL 20 MG ORAL TABLET 1 tab po at HS LIS INOPRIL 20542951889 No Longer Active Mitch Urbina DO Active COUMADIN 5 MG ORAL TABLET 1 by mouth every other day 2 WARFARIN SODIUM 60783503203 No Longer Active Mitch Urbina DO Active COUMADIN 6 MG ORAL TABLET 1 by mouth every other day 2 WARFARIN SODIUM 65475556623 No Longer Active Mitch Urbina DO Active SIMVASTATIN 40 MG ORAL TABLET 1 tab daily at bedtime SIMVASTATIN 53004346758 Active Maria Rivas RN Active SIMVASTATIN 20 MG ORAL TABLET 1 tab daily at bedtime 2 SIMVASTATIN 80623213808 No Longer Active Mitch Urbina DO Active LOVENOX 100 MG/ML SUBCUTANEOUS SOLUTION One injection twice a da y ENOXAPARIN SODIUM 87184827255 No Longer Active Carmine Yusuf MD Active JANUVIA 50 MG ORAL TABLET Take one by mouth daily SITAGLIPTIN PHOSPHATE 76220768007 Active Renee Oconnoreder DE LA ROSA Active JANUVIA 100 MG ORAL TABLET 1/2 by mouth every day 2011 SITAGLIPTIN PHOSPHATE 42132521281 No Longer Active Bijal Segal RN Acti ve METFORMIN HCL 500 MG ORAL TABLET 2 by mouth twice daily METFORMIN HCL 24795595624 No Longer Active Renee Oconnor LPN Active COLCRYS 0.6 MG ORAL TABLET 1 po q 6 hours prn gout pain COLCHICINE 28084474553 No Longer Active Camila Reese Active LISINOPRIL 5 MG ORAL TABLET 1 by mouth every day 11/17 LISINOPRIL 18879390904 No Longer Active Nguyen Perez Active KLOR-CON 20 MEQ ORAL PACKET Take one by mouth daily 20 09/10/08 POTASSIUM CHLORIDE 44443916769 No Longer Active Nguyen Perez Active FUROSEMIDE 40 MG ORAL TABLET 1 by mouth daily F UROSEMIDE 27734029533 No Longer Active Nguyen Perez Active PROVIGIL 100 MG ORAL TABLET Take one by mouth daily 20 08/20/04 MODAFINIL 18347053148 No Longer Active Mitch Urbina DO Active BACTRIM DS 800-160 MG ORAL TABLET 1 tab by mouth twice daily 201 10/19/09 TRIMETHOPRIM-SULFAMETHOXAZOLE 37190411593 No Longer Active C alberto Hays MD Active ADULT ASPIRIN LOW STRENGTH 81 MG ORAL TABLET DISINTEGR ATING 1 by mouth every daily ASPIRIN 63283674681 Active Mitch Urbina DO Ac tive BACTRIM DS 800-160 MG ORAL TABLET 1 tab by mouth twice daily 201 10/19/09 BACTRIM DS 800-160 MG ORAL TABLET 394435 TRIMETHOPRIM-SULFAMETHOXAZOLE Inactive PROVIGIL 100 MG ORAL TABLET Take one by mouth daily 08/20/04 PROVIGIL 100 MG ORAL TABLET 564974 MODAFINIL Inactive FUROSEMIDE 40 MG ORAL TABLET 1 by mouth daily FUROSEMIDE 40 MG ORAL TABLET 721821 FUROSEMIDE Inactive KLOR-CON 20 MEQ ORAL PACKET Take one by mouth daily 09/10/08 KLOR- CON 20 MEQ ORAL PACKET 5310188 POTASSIUM CHLORIDE Inactive LISINOPRIL 5 MG ORAL TABLET 1 by mouth every day 11/17 LISINOPRIL 5 MG ORAL TABLET 783334 LISINOPRIL Inactive COLCRYS 0.6 MG ORAL TABLET 1 po q 6 hours prn gout pain COLCRYS 0.6 MG ORAL TABLET 123595 COLCHICINE Inactive JANUVIA 100 MG ORAL TABLET 1/2 by mouth every day 2011 JANUVIA 100 MG ORAL TABLET SITAGLIPTIN PHOSPHATE Inactive SIMVASTATIN 20 MG ORAL TABLET 1 tab daily at bedtime 2 SIMVASTATIN 20 MG ORAL TABLET 303021 SIMVASTATIN Inactive COUMADIN 6 MG ORAL TABLET 1 by mouth every other day COUMADIN 6 MG ORAL TABLET 820658 WARFARIN SODIUM Inactive COUMADIN 5 MG ORAL TABLET 1 by mouth every other day COUMADIN 5 MG ORAL TABLET 175652 WARFARIN SODIUM Inactive LISINOPRIL 20 MG ORAL TABLET 1 tab po at HS LISINOPRIL 20 MG ORAL TABLET 290841 LISINOPRIL Inactive LISINOPRIL-HYDROCHLOROTHIAZIDE 20-12.5 MG ORAL TABLET 1 tab by m outh daily LISINOPRIL-HYDROCHLOROTHIAZIDE 20-12.5 MG ORAL TABLET 701013 LISINOPRIL-HYDROCHLOROTHIAZIDE Inactive POLYTRIM 16390-5.1 UNIT/ML-% OPHTHALMIC SOLUTION 1 rui p in affected eye every 3 hours while awake x 7 days POLYTRIM 1000 0-0.1 UNIT/ML-% OPHTHALMIC SOLUTION 429663 POLYMYXIN B-TRIMETHOPRIM Inactive COUMADIN 4 MG ORAL TABLET 1 tablet daily COUMADIN 4 MG ORAL TABLET 530397 WARFARIN SODIUM Inactive CLONIDINE HCL 0.1 MG ORAL TABLET 1 po bid 7 days, then 1/2 t ab po bid 7 days CLONIDINE HCL 0.1 MG ORAL TABLET 943588 CLONIDIN E HCL Inactive ALLOPURINOL 300 MG ORAL TABLET Take 1 tablet by mouth daily 2012 ALLOPURINOL 300 MG ORAL TABLET 665995 ALLOPURINOL I nactive MECLIZINE HCL 25 MG ORAL TABLET 1 po tid 3 days, then 1/2 ta b tid 3 days MECLIZINE HCL 25 MG ORAL TABLET 003112 MECLIZINE HCL Inactive AMLODIPINE BESYLATE 5 MG ORAL TABLET 1 tablet by mouth daily 201 01/20/04 AMLODIPINE BESYLATE 5 MG ORAL TABLET 786122 AMLODIPINE BESYLATE Inactive KEFLEX 500 MG ORAL CAPSULE 1 po qid K EFLEX 500 MG ORAL CAPSULE 127639 CEPHALEXIN Inactive COLCRYS 0.6 MG ORAL TABLET 1 tab qid prn gout COLCRYS 0.6 MG ORAL TABLET 164069 COLCHICINE Inactive FAMOTIDINE 20 MG ORAL TABLET by mouth twice a day 2017 FAMOTIDINE 20 MG ORAL TABLET 920786 FAMOTIDINE Inactive GLIMEPIRIDE 2 MG ORAL TABLET 1 po BID GLIMEPIRIDE 2 MG ORAL TABLET 821788 GLIMEPIRIDE Inactive AMLODIPINE BESYLATE 5 MG ORAL TABLET 1 tablet by mouth daily 201 05/19/02 AMLODIPINE BESYLATE 5 MG ORAL TABLET 341651 AMLODIPINE BESYLATE Inactive LOVENOX 100 MG/ML SUBCUTANEOUS SOLUTION One injection twice a da y LOVENOX 100 MG/ML SUBCUTANEOUS SOLUTION 283923 ENOXAPAR IN SODIUM Inactive PREDNISONE 20 MG ORAL TABLET 2 tabs daily for 3 days 1 tab d aily for 3 days PREDNISONE 20 MG ORAL TABLET 447218 PREDNISONE Inactive KEFLEX 500 MG ORAL CAPSULE 1 capsule by mouth three times da rocky x10 days KEFLEX 500 MG ORAL CAPSULE 840805 CEPHALEXIN I nactive Advance Directives Directive Description [...] - Chem istry sodium, serum 138 mmol/L 410-712 7896/11/07 potassium, serum 4.5 mmol/L 3.5-5.2 chloride, serum [...] Panel - Chemistry sodium, serum 140 mmol/L 276-897 9992/11/01 carbon dioxide, venous blood 28.6 mmol/L 21.0-32 [...] mg/dL Encounters Code Encounter Date Provider Facility CPT-34034 [id number] Vst-Est Level IV 16:21:22 CDT Stephy Ambrose [facility] CPT-29546 Level 3 Est. Patient 15:18:36 CDT [facility] CPT-29868 [id number] Vst-Est Level IV 10:06:35 CDT Stepyh Ambrose [facility]-89775 [id number] Vst-Est Level IV 10:52:00 METALWORKING INSTRUCTOR Stephy Ambrose [facility] CPT-09414 Level 3 Est. Patient 18:25:53 CDT Mitch Castellano [facility] CPT-70398 Level 3 Est. Patient 19:43:34 CDT Mitch luis [facility] CPT-05097 Level 4 Est. Patient 09:30:18 CDT Mitch luis [facility] CPT-30508 Level 3 Est. Patient 15:10:14 CDT [facility] CPT-04521 Level 3 Est. Patient 15:03:46 CDT [facility] CPT-60217 Level 3 Est. Patient 14:21:06 CDT Mitch Ambrose L ee [facility]-92535 Level 3 Est. Patient 14:52:06 CDT [facility] CPT-85528 Level 3 Est. Patient 09:34:30 METALWORKING INSTRUCTOR Mitch W L janelle [facility] CPT-67534 Level 3 Est. Patient 09:37:15 CDT Mitch W L ee [facility]-67568 Level 3 Est. Patient 17:01:00 METALWORKING INSTRUCTOR Mitch W L ee [facility] CPT-62491 Level 3 Est. Patient 13:53:19 METALWORKING INSTRUCTOR Mitch W L janelle [facility] CPT-82166 Level 3 Est. Patient 19:19:37 METALWORKING INSTRUCTOR Mitch W L janelle [facility] CPT-91095 Level 3 Est. Patient 13:25:53 METALWORKING INSTRUCTOR Tavo toure MD [facility]-47287 Level 3 Est. Patient 18:17:28 CDT Mitch W L ee [facility] CPT-43271 Level 3 Est. Patient 15:22:57 CDT Mitch W L janelle [facility]-23225 Level 3 Est. Patient 18:21:50 CDT Mitch W L ee [facility] CPT-90069 Level 3 Est. Patient 18:20:38 CDT Mitch W L ee [facility] CPT-00091 Level 3 Est. Patient 15:37:55 CDT Mitch W L ee [facility] CPT-51899 Level 2 Est. Patient 15:54:44 CDT Carmine benton MD [facility]-35240 Level 3 Est. Patient 21:46:01 METALWORKING INSTRUCTOR Mitch W L ee [facility] CPT-69780 Level 3 Est. Patient 22:15:50 CDT Mitch luis [facility] CPT-20933 Level 3 Est. Patient 10:48:15 CDT Mitch luis [facility] CPT-64150 Level 3 Est. Patient 23:20:57 CDT Tavo toure MD [facility] CPT-41304 Level 3 Est. Patient 16:26:13 CDT Mitch luis [facility] Procedures Code Procedure Name Date Entry Date Standard Desc ription CPT-86649 Venipuncture Draw Fee 14:46:55 METALWORKING INSTRUCTOR CPT-81727 Venipuncture Draw Fee 08:26:21 CDT CPT-49682 Venous Duplex Left Leg XRAY USE ONLY 10:43:10 CDT CPT-54449 Venipuncture Draw Fee 17:04:55 CDT CPT-75317 Venipuncture Draw Fee 17:20:50 CDT CPT-69638 Venipuncture Draw Fee 18:00:48 CDT CPT-22474 Venipuncture Draw Fee 14:56:20 CDT CPT-JTINJ Asp/Joint Injection 18:47:02 CDT CPT-23475 Venipuncture Draw Fee 09:26:17 CDT CPT-95717 PT/INR - LAB USE ONLY 13:32:49 METALWORKING INSTRUCTOR CPT-80010 Venipuncture Draw Fee 13:32:49 METALWORKING INSTRUCTOR CPT-37386 PT/INR - LAB USE ONLY 10:34:49 METALWORKING INSTRUCTOR CPT-66912 Venipuncture Draw Fee 10:34:48 METALWORKING INSTRUCTOR CPT-57153 PT/INR - LAB USE ONLY 09:22:03 METALWORKING INSTRUCTOR CPT-56765 Venipuncture Draw Fee 09:22:02 METALWORKING INSTRUCTOR CPT-39218 Hemoccult IFOBT - LAB USE ONLY 10:27:22 CDT CPT-66784 Venipuncture Draw Fee 08:27:08 CDT CPT-69180 Liver Profile - LAB USE ONLY 08:27:07 CDT 2 CPT-31301 Microalbumin - LAB USE ONLY 08:27:07 CDT 20 25/05/09 CPT-40695 PT/INR - LAB USE ONLY 08:27:07 CDT CPT-86660 HGBA1C - LAB USE ONLY 08:27:07 CDT CPT-05578 CBC - LAB USE ONLY 08:27:07 CDT CPT-94366 Venipuncture Draw Fee 11:09:14 CDT CPT-46440 Venipuncture Draw Fee 08:32:21 METALWORKING INSTRUCTOR CPT-48855 Venipuncture Draw Fee 09:38:56 METALWORKING INSTRUCTOR CPT-73379 No Charge Offi Visit 21:36:07 CDT 1 CPT-44129 Venipuncture Draw Fee 10:13:28 METALWORKING INSTRUCTOR CPT-80759 Venipuncture Draw Fee 08:31:11 CDT CPT-32750 Aspir/Inject Med Joint 18:17:28 CDT CPT-46877 Venipuncture Draw Fee 10:13:30 CDT CPT-84437 Venipuncture Draw Fee 08:31:43 METALWORKING INSTRUCTOR CPT-JTINJ Joint Injection 18:34:50 CDT CPT-14892 Knee 3V 12:25:09 CDT CPT-96314 Venipuncture Draw Fee 12:15:57 CDT CPT-060 Medical Surveillance Exam 21:31:43 CDT 2011 CPT-59114 Venipuncture Draw Fee 08:32:05 METALWORKING INSTRUCTOR CPT-OV Office Visit 18:19:06 CDT
--- OUTSIDE RECORDS SUMMARY | 2020-01-18 13:57 | XMS REPORT | Clinical Summary ---
Author Author Admin, Mitch Leon Organization [facility] Address Unknown Phone Unavailable Allergies, Adverse Reactions, [...] by mouth daily 201 05/19/02 AMLODIPINE BESYLATE 35120333880 No Longer Active Maria Briones Active WARFARIN TABS 1MG TAKE 2 TABLETS (2 MG) DAILY WITH THE 5 MG TABLET TO EQUAL 7 MG DAILY WARFARIN SODIUM 35513982340 Active Maria Briones Active WARFARIN SODIUM 5 MG TABS TAKE 1 TABLET DAILY W ARFARIN SODIUM 83527135651 Active Allison PERERA Active KEFLEX 500 MG ORAL CAPSULE 1 capsule by mouth three times da rocky x10 days CEPHALEXIN 04975517915 No Longer Active Maria landaverde RN Active METOPROLOL TARTRATE TABS 50MG TAKE 1 TABLET TWICE A DAY ([facility]) METOPROLOL TARTRATE 94452882168 Active Maria Briones Active DOXAZOSIN MESYLATE 2 MG ORAL TABLET 1 po q day for pr ostate and blood pressure DOXAZOSIN MESYLATE 72043481748 Active Mitch Urbina DO Active LOSARTAN TABS 100MG TAKE 1 TABLET DAILY FOR BLOOD PRESSURE LOSARTAN POTASSIUM 54308808163 Active Maria Rivas RN Active FLUTICASONE PROPIONATE 50 MCG/ACT NASAL SUSPENSION 1 s pray each nostril twice daily for 1 week, then once daily FLUTICASONE MT OPIONATE 87756373925 Active Becky Sell HOT SHOT Active PREDNISONE 20 MG ORAL TABLET 2 tabs daily for 3 days 1 tab d aily for 3 days PREDNISONE 13075333751 No Longer Active Becky Sell HOT SHOT Active MINOXIDIL 2.5 MG ORAL TABLET 1 tablet twice daily for high b lood pressure MINOXIDIL 33800108997 Active Mitch Urbina DO Ac tive METFORMIN HCL ER 500 MG ORAL TABLET EXTENDED RELEASE 2 4 HOUR 2 tablets by mouth twice daily METFORMIN HCL 00015190457 Active Mitch Urbina DO Active GLIMEPIRIDE 4 MG ORAL TABLET 1 tablet by mouth twice daily f or diabetes GLIMEPIRIDE 12774652939 Active Mitch Urbina DO Active GLIMEPIRIDE 2 MG ORAL TABLET 1 po BID GLIMEPI RIDE 40193243879 No Longer Active Mitch Urbina DO Active PROVIGIL 200 MG ORAL TABLET 1/2 tab po q day MODA FINIL 79090836459 Active Maria Rivas RN Active FAMOTIDINE 20 MG ORAL TABLET by mouth twice a day 2017 FAMOTIDINE 73686536316 No Longer Active Mitch Urbina DO Active COLCRYS 0.6 MG ORAL TABLET 1 tab qid prn gout C OLCHICINE 84147084782 No Longer Active Mitch Urbina DO Active KEFLEX 500 MG ORAL CAPSULE 1 po qid CEPHALEXI N 95390489528 No Longer Active Mitch Urbina DO Active AMLODIPINE BESYLATE 5 MG ORAL TABLET 1 tablet by mouth daily 201 01/20/04 AMLODIPINE BESYLATE 78991816249 No Longer Active Joe fulton APRN Active MITIGARE 0.6 MG ORAL CAPSULE 2 capsules at onset of go ut pain, then take one capsule at 1 hour if symptoms persist. COLCHICINE 59 722779220 Active Mitch Urbina DO Active INVOKANA 100 MG ORAL TABLET 1 tablet orally daily CANAGLIFLOZIN 49219370856 Active Mitch Urbina DO Active MECLIZINE HCL 25 MG ORAL TABLET 1 po tid 3 days, then 1/2 ta b tid 3 days MECLIZINE HCL 44720461876 No Longer Active Corey SEGURA Active ALLOPURINOL 300 MG ORAL TABLET Take 1 tablet by mouth daily 2012 ALLOPURINOL 50487356694 No Longer Active Corey SEGURA Active CLONIDINE HCL 0.1 MG ORAL TABLET 1 po bid 7 days, then 1/2 t ab po bid 7 days CLONIDINE HCL 34142228779 No Longer Active Corey SEGURA Active COUMADIN 4 MG ORAL TABLET 1 tablet daily WARFAR IN SODIUM 67612400150 No Longer Active Corey SEGURA Active POLYTRIM 66377-3.1 UNIT/ML-% OPHTHALMIC SOLUTION 1 rui p in affected eye every 3 hours while awake x 7 days POLYMYXIN B-TRIMETHOP RIM 10451257593 No Longer Active Corey SEGURA Active LOSARTAN POTASSIUM-HCTZ 100-12.5 MG ORAL TABLET 1 by m outh daily for high blood pressure LOSARTAN POTASSIUM-HCTZ 74748985590 No Longer A ctive Mitch Urbina DO Active LISINOPRIL-HYDROCHLOROTHIAZIDE 20-12.5 MG ORAL TABLET 1 tab by m outh daily LISINOPRIL-HYDROCHLOROTHIAZIDE 19341268438 No Longer Active Mitch Urbina DO Active LISINOPRIL 20 MG ORAL TABLET 1 tab po at HS LIS INOPRIL 87595794841 No Longer Active Mitch Urbina DO Active COUMADIN 5 MG ORAL TABLET 1 by mouth every other day 2 WARFARIN SODIUM 54376113816 No Longer Active Mitch Urbina DO Active COUMADIN 6 MG ORAL TABLET 1 by mouth every other day 2 WARFARIN SODIUM 65600672204 No Longer Active Mitch Urbina DO Active SIMVASTATIN 40 MG ORAL TABLET 1 tab daily at bedtime SIMVASTATIN 93613706289 Active Maria Rivas RN Active SIMVASTATIN 20 MG ORAL TABLET 1 tab daily at bedtime 2 SIMVASTATIN 01196976280 No Longer Active Mitch Urbina DO Active LOVENOX 100 MG/ML SUBCUTANEOUS SOLUTION One injection twice a da y ENOXAPARIN SODIUM 60749376796 No Longer Active Carmine Yusuf MD Active JANUVIA 50 MG ORAL TABLET Take one by mouth daily SITAGLIPTIN PHOSPHATE 40328230209 Active Renee Oconnoreder DE LA ROSA Active JANUVIA 100 MG ORAL TABLET 1/2 by mouth every day 2011 SITAGLIPTIN PHOSPHATE 43105665606 No Longer Active Bijal Segal RN Acti ve METFORMIN HCL 500 MG ORAL TABLET 2 by mouth twice daily METFORMIN HCL 63995753749 No Longer Active Renee Oconnor LPN Active COLCRYS 0.6 MG ORAL TABLET 1 po q 6 hours prn gout pain COLCHICINE 61871238521 No Longer Active Camila Reese Active LISINOPRIL 5 MG ORAL TABLET 1 by mouth every day 11/17 LISINOPRIL 19527729289 No Longer Active Nguyen Peerz Active KLOR-CON 20 MEQ ORAL PACKET Take one by mouth daily 20 09/10/08 POTASSIUM CHLORIDE 08257498656 No Longer Active Nguyen Perez Active FUROSEMIDE 40 MG ORAL TABLET 1 by mouth daily F UROSEMIDE 10926019537 No Longer Active Nguyen Perez Active PROVIGIL 100 MG ORAL TABLET Take one by mouth daily 20 08/20/04 MODAFINIL 11954945807 No Longer Active Mitch Urbina DO Active BACTRIM DS 800-160 MG ORAL TABLET 1 tab by mouth twice daily 201 10/19/09 TRIMETHOPRIM-SULFAMETHOXAZOLE 03654130267 No Longer Active C alberto Hays MD Active ADULT ASPIRIN LOW STRENGTH 81 MG ORAL TABLET DISINTEGR ATING 1 by mouth every daily ASPIRIN 94308652634 Active Mitch Urbina DO Ac tive BACTRIM DS 800-160 MG ORAL TABLET 1 tab by mouth twice daily 201 10/19/09 BACTRIM DS 800-160 MG ORAL TABLET 705404 TRIMETHOPRIM-SULFAMETHOXAZOLE Inactive PROVIGIL 100 MG ORAL TABLET Take one by mouth daily 08/20/04 PROVIGIL 100 MG ORAL TABLET 467423 MODAFINIL Inactive FUROSEMIDE 40 MG ORAL TABLET 1 by mouth daily FUROSEMIDE 40 MG ORAL TABLET 483277 FUROSEMIDE Inactive KLOR-CON 20 MEQ ORAL PACKET Take one by mouth daily 09/10/08 KLOR- CON 20 MEQ ORAL PACKET 7848611 POTASSIUM CHLORIDE Inactive LISINOPRIL 5 MG ORAL TABLET 1 by mouth every day 11/17 LISINOPRIL 5 MG ORAL TABLET 310748 LISINOPRIL Inactive COLCRYS 0.6 MG ORAL TABLET 1 po q 6 hours prn gout pain COLCRYS 0.6 MG ORAL TABLET 127200 COLCHICINE Inactive JANUVIA 100 MG ORAL TABLET 1/2 by mouth every day 2011 JANUVIA 100 MG ORAL TABLET SITAGLIPTIN PHOSPHATE Inactive SIMVASTATIN 20 MG ORAL TABLET 1 tab daily at bedtime 2 SIMVASTATIN 20 MG ORAL TABLET 230347 SIMVASTATIN Inactive COUMADIN 6 MG ORAL TABLET 1 by mouth every other day COUMADIN 6 MG ORAL TABLET 240461 WARFARIN SODIUM Inactive COUMADIN 5 MG ORAL TABLET 1 by mouth every other day COUMADIN 5 MG ORAL TABLET 010075 WARFARIN SODIUM Inactive LISINOPRIL 20 MG ORAL TABLET 1 tab po at HS LISINOPRIL 20 MG ORAL TABLET 499147 LISINOPRIL Inactive LISINOPRIL-HYDROCHLOROTHIAZIDE 20-12.5 MG ORAL TABLET 1 tab by m outh daily LISINOPRIL-HYDROCHLOROTHIAZIDE 20-12.5 MG ORAL TABLET 966840 LISINOPRIL-HYDROCHLOROTHIAZIDE Inactive POLYTRIM 31441-1.1 UNIT/ML-% OPHTHALMIC SOLUTION 1 rui p in affected eye every 3 hours while awake x 7 days POLYTRIM 1000 0-0.1 UNIT/ML-% OPHTHALMIC SOLUTION 770388 POLYMYXIN B-TRIMETHOPRIM Inactive COUMADIN 4 MG ORAL TABLET 1 tablet daily COUMADIN 4 MG ORAL TABLET 779744 WARFARIN SODIUM Inactive CLONIDINE HCL 0.1 MG ORAL TABLET 1 po bid 7 days, then 1/2 t ab po bid 7 days CLONIDINE HCL 0.1 MG ORAL TABLET 803933 CLONIDIN E HCL Inactive ALLOPURINOL 300 MG ORAL TABLET Take 1 tablet by mouth daily 2012 ALLOPURINOL 300 MG ORAL TABLET 779835 ALLOPURINOL I nactive MECLIZINE HCL 25 MG ORAL TABLET 1 po tid 3 days, then 1/2 ta b tid 3 days MECLIZINE HCL 25 MG ORAL TABLET 214890 MECLIZINE HCL Inactive AMLODIPINE BESYLATE 5 MG ORAL TABLET 1 tablet by mouth daily 201 01/20/04 AMLODIPINE BESYLATE 5 MG ORAL TABLET 380242 AMLODIPINE BESYLATE Inactive KEFLEX 500 MG ORAL CAPSULE 1 po qid K EFLEX 500 MG ORAL CAPSULE 626821 CEPHALEXIN Inactive COLCRYS 0.6 MG ORAL TABLET 1 tab qid prn gout COLCRYS 0.6 MG ORAL TABLET 257987 COLCHICINE Inactive FAMOTIDINE 20 MG ORAL TABLET by mouth twice a day 2017 FAMOTIDINE 20 MG ORAL TABLET 735623 FAMOTIDINE Inactive GLIMEPIRIDE 2 MG ORAL TABLET 1 po BID GLIMEPIRIDE 2 MG ORAL TABLET 404403 GLIMEPIRIDE Inactive AMLODIPINE BESYLATE 5 MG ORAL TABLET 1 tablet by mouth daily 201 05/19/02 AMLODIPINE BESYLATE 5 MG ORAL TABLET 245503 AMLODIPINE BESYLATE Inactive LOVENOX 100 MG/ML SUBCUTANEOUS SOLUTION One injection twice a da y LOVENOX 100 MG/ML SUBCUTANEOUS SOLUTION 036719 ENOXAPAR IN SODIUM Inactive PREDNISONE 20 MG ORAL TABLET 2 tabs daily for 3 days 1 tab d aily for 3 days PREDNISONE 20 MG ORAL TABLET 849913 PREDNISONE Inactive KEFLEX 500 MG ORAL CAPSULE 1 capsule by mouth three times da rocky x10 days KEFLEX 500 MG ORAL CAPSULE 477147 CEPHALEXIN I nactive Advance Directives Directive Description Start Date PERMISSION TO SHARE Immunizations Vaccine Administration Date Value Standard Geoavnny cription influenza immunization (Flu Vax) has been [...] - Chem istry sodium, serum 138 mmol/L 079-384 1101/11/07 potassium, serum 4.5 mmol/L 3.5-5.2 chloride, serum [...] Panel - Chemistry sodium, serum 140 mmol/L 754-652 1658/11/01 carbon dioxide, venous blood 28.6 mmol/L 21.0-32 [...] mg/dL Encounters Code Encounter Date Provider Facility CPT-34749 [id number] Vst-Est Level IV 16:21:22 CDT Stephy Ambrose [facility] [place] CPT-94284 Level 3 Est. Patient 15:18:36 CDT Becky anderson [facility] CPT-94701 [id number] Vst-Est Level IV 10:06:35 CDT Stephy Ambrose [facility]-35445 [id number] Vst-Est Level IV 10:52:00 RN CLINICIAN Stephy Ambrose [facility] [place] CPT-00712 Level 3 Est. Patient 18:25:53 CDT Mitch luis [facility] CPT-30766 Level 3 Est. Patient 19:43:34 CDT Mitch luis [facility] CPT-26746 Level 4 Est. Patient 09:30:18 CDT Mitch luis [facility] CPT-01659 Level 3 Est. Patient 15:10:14 CDT Joe kamara [facility]-14508 Level 3 Est. Patient 15:03:46 CDT Joe kamara [facility] CPT-35491 Level 3 Est. Patient 14:21:06 CDT Mitch Arnol L ee [facility]-92221 Level 3 Est. Patient 14:52:06 CDT Joe kamara [facility]-15592 Level 3 Est. Patient 09:34:30 RN CLINICIAN Mitch W L ee [facility]-73230 Level 3 Est. Patient 09:37:15 CDT Mitch W L ee [facility]-00727 Level 3 Est. Patient 17:01:00 RN CLINICIAN Mitch W L ee [facility] CPT-52748 Level 3 Est. Patient 13:53:19 RN CLINICIAN Mitch W L ee [facility] CPT-74631 Level 3 Est. Patient 19:19:37 RN CLINICIAN Mitch W L janelle [facility] CPT-20063 Level 3 Est. Patient 13:25:53 RN CLINICIAN Tavo toure MD [facility]-51172 Level 3 Est. Patient 18:17:28 CDT Mitch W L ee [facility] CPT-79492 Level 3 Est. Patient 15:22:57 CDT Mitch W L ee [facility]-18070 Level 3 Est. Patient 18:21:50 CDT Mitch W L ee [facility]-54327 Level 3 Est. Patient 18:20:38 CDT Mitch W L ee [facility] CPT-92934 Level 3 Est. Patient 15:37:55 CDT Mitch W L ee [facility] CPT-65177 Level 2 Est. Patient 15:54:44 CDT Carmine benton MD [facility]-60713 Level 3 Est. Patient 21:46:01 RN CLINICIAN Mitch W L ee [facility] CPT-63692 Level 3 Est. Patient 22:15:50 CDT Mitch luis [facility] CPT-29968 Level 3 Est. Patient 10:48:15 CDT Mitch luis [facility] CPT-86840 Level 3 Est. Patient 23:20:57 CDT Tavo toure MD [facility] CPT-35299 Level 3 Est. Patient 16:26:13 CDT Mitch luis [facility] Procedures Code Procedure Name Date Entry Date Standard Desc ription CPT-15543 Venipuncture Draw Fee 14:46:55 RN CLINICIAN CPT-02859 Venipuncture Draw Fee 08:26:21 CDT CPT-45541 Venous Duplex Left Leg XRAY USE ONLY 10:43:10 CDT CPT-36665 Venipuncture Draw Fee 17:04:55 CDT CPT-22830 Venipuncture Draw Fee 17:20:50 CDT CPT-83193 Venipuncture Draw Fee 18:00:48 CDT CPT-03765 Venipuncture Draw Fee 14:56:20 CDT CPT-JTINJ Asp/Joint Injection 18:47:02 CDT CPT-03033 Venipuncture Draw Fee 09:26:17 CDT CPT-18693 PT/INR - LAB USE ONLY 13:32:49 RN CLINICIAN CPT-87593 Venipuncture Draw Fee 13:32:49 RN CLINICIAN CPT-83680 PT/INR - LAB USE ONLY 10:34:49 RN CLINICIAN CPT-45346 Venipuncture Draw Fee 10:34:48 RN CLINICIAN CPT-33983 PT/INR - LAB USE ONLY 09:22:03 RN CLINICIAN CPT-36333 Venipuncture Draw Fee 09:22:02 RN CLINICIAN CPT-10300 Hemoccult IFOBT - LAB USE ONLY 10:27:22 CDT CPT-55874 Venipuncture Draw Fee 08:27:08 CDT CPT-83735 Liver Profile - LAB USE ONLY 08:27:07 CDT 2 CPT-00627 Microalbumin - LAB USE ONLY 08:27:07 CDT 20 25/05/09 CPT-39986 PT/INR - LAB USE ONLY 08:27:07 CDT CPT-62617 HGBA1C - LAB USE ONLY 08:27:07 CDT CPT-61084 CBC - LAB USE ONLY 08:27:07 CDT CPT-90504 Venipuncture Draw Fee 11:09:14 CDT CPT-35698 Venipuncture Draw Fee 08:32:21 RN CLINICIAN CPT-21452 Venipuncture Draw Fee 09:38:56 RN CLINICIAN CPT-30326 No Charge Offi Visit 21:36:07 CDT 1 CPT-49092 Venipuncture Draw Fee 10:13:28 RN CLINICIAN CPT-79060 Venipuncture Draw Fee 08:31:11 CDT CPT-54178 Aspir/Inject Med Joint 18:17:28 CDT CPT-78349 Venipuncture Draw Fee 10:13:30 CDT CPT-26152 Venipuncture Draw Fee 08:31:43 RN CLINICIAN CPT-JTINJ Joint Injection 18:34:50 CDT CPT-00228 Knee 3V 12:25:09 CDT CPT-52783 Venipuncture Draw Fee 12:15:57 CDT CPT-060 Medical Surveillance Exam 21:31:43 CDT 2011 CPT-93789 Venipuncture Draw Fee 08:32:05 RN CLINICIAN CPT-OV Office Visit 18:19:06 CDT
--- OUTSIDE RECORDS SUMMARY | 2020-01-18 13:57 | XMS REPORT | Clinical Summary ---
Author Author Admin, Mitch Leon Organization [facility] [employer] Address Unknown Phone Unavailable Allergies, Adverse Reactions, [...] by mouth daily 201 05/19/02 AMLODIPINE BESYLATE [id number] No Longer Active Maria Briones Active WARFARIN TABS 1MG TAKE 2 TABLETS (2 MG) DAILY WITH THE 5 MG TABLET TO EQUAL 7 MG DAILY WARFARIN SODIUM 54647293035 Active Maria Briones Active WARFARIN SODIUM 5 MG TABS TAKE 1 TABLET DAILY W ARFARIN SODIUM 09559519371 Active Allison PERERA Active KEFLEX 500 MG ORAL CAPSULE 1 capsule by mouth three times da rocky x10 days CEPHALEXIN 79304177959 No Longer Active Maria landaverde RN Active METOPROLOL TARTRATE TABS 50MG TAKE 1 TABLET TWICE A DAY ([facility]) METOPROLOL TARTRATE 39332151034 Active Maria Briones Active DOXAZOSIN MESYLATE 2 MG ORAL TABLET 1 po q day for pr ostate and blood pressure DOXAZOSIN MESYLATE 43913841345 Active Mitch Urbina DO Active LOSARTAN TABS 100MG TAKE 1 TABLET DAILY FOR BLOOD PRESSURE LOSARTAN POTASSIUM 19031306210 Active Maria Rivas RN Active FLUTICASONE PROPIONATE 50 MCG/ACT NASAL SUSPENSION 1 s pray each nostril twice daily for 1 week, then once daily FLUTICASONE MI OPIONATE 87391243093 Active Becky Sell BRADDER Active PREDNISONE 20 MG ORAL TABLET 2 tabs daily for 3 days 1 tab d aily for 3 days PREDNISONE 54773089201 No Longer Active Becky Sell BRADDER Active MINOXIDIL 2.5 MG ORAL TABLET 1 tablet twice daily for high b lood pressure MINOXIDIL 97819545776 Active Mitch Urbina DO Ac tive METFORMIN HCL ER 500 MG ORAL TABLET EXTENDED RELEASE 2 4 HOUR 2 tablets by mouth twice daily METFORMIN HCL 46861176947 Active Mitch Urbina DO Active GLIMEPIRIDE 4 MG ORAL TABLET 1 tablet by mouth twice daily f or diabetes GLIMEPIRIDE 94335753854 Active Mitch Urbina DO Active GLIMEPIRIDE 2 MG ORAL TABLET 1 po BID GLIMEPI RIDE 11613558987 No Longer Active Mitch Urbina DO Active PROVIGIL 200 MG ORAL TABLET 1/2 tab po q day MODA FINIL 14356272393 Active Maria Rivas RN Active FAMOTIDINE 20 MG ORAL TABLET by mouth twice a day 2017 FAMOTIDINE 84233256899 No Longer Active Mitch Urbina DO Active COLCRYS 0.6 MG ORAL TABLET 1 tab qid prn gout C OLCHICINE 02280972496 No Longer Active Mitch Urbina DO Active KEFLEX 500 MG ORAL CAPSULE 1 po qid CEPHALEXI N 99323452007 No Longer Active Mitch Urbina DO Active AMLODIPINE BESYLATE 5 MG ORAL TABLET 1 tablet by mouth daily 201 01/20/04 AMLODIPINE BESYLATE 79873557439 No Longer Active Joe fulton APRN Active MITIGARE 0.6 MG ORAL CAPSULE 2 capsules at onset of go ut pain, then take one capsule at 1 hour if symptoms persist. COLCHICINE 59 823712358 Active Mitch Urbina DO Active INVOKANA 100 MG ORAL TABLET 1 tablet orally daily CANAGLIFLOZIN 73307472777 Active Mitch Urbina DO Active MECLIZINE HCL 25 MG ORAL TABLET 1 po tid 3 days, then 1/2 ta b tid 3 days MECLIZINE HCL 65995395558 No Longer Active Corey SEGUAR Active ALLOPURINOL 300 MG ORAL TABLET Take 1 tablet by mouth daily 2012 ALLOPURINOL 20621139591 No Longer Active Corey SEGURA Active CLONIDINE HCL 0.1 MG ORAL TABLET 1 po bid 7 days, then 1/2 t ab po bid 7 days CLONIDINE HCL 41436259786 No Longer Active Corey SEGURA Active COUMADIN 4 MG ORAL TABLET 1 tablet daily WARFAR IN SODIUM 94819773263 No Longer Active Corey SEGURA Active POLYTRIM 03035-7.1 UNIT/ML-% OPHTHALMIC SOLUTION 1 rui p in affected eye every 3 hours while awake x 7 days POLYMYXIN B-TRIMETHOP RIM 83651413103 No Longer Active Corey SEGURA Active LOSARTAN POTASSIUM-HCTZ 100-12.5 MG ORAL TABLET 1 by m outh daily for high blood pressure LOSARTAN POTASSIUM-HCTZ 18457250488 No Longer A ctive Mitch Urbina DO Active LISINOPRIL-HYDROCHLOROTHIAZIDE 20-12.5 MG ORAL TABLET 1 tab by m outh daily LISINOPRIL-HYDROCHLOROTHIAZIDE 12419337593 No Longer Active Mitch Urbina DO Active LISINOPRIL 20 MG ORAL TABLET 1 tab po at HS LIS INOPRIL 90665144921 No Longer Active Mitch Urbina DO Active COUMADIN 5 MG ORAL TABLET 1 by mouth every other day 2 WARFARIN SODIUM 57963601822 No Longer Active Mitch Urbina DO Active COUMADIN 6 MG ORAL TABLET 1 by mouth every other day 2 WARFARIN SODIUM 00809478972 No Longer Active Mitch Urbina DO Active SIMVASTATIN 40 MG ORAL TABLET 1 tab daily at bedtime SIMVASTATIN 73099965460 Active Maria Rivas RN Active SIMVASTATIN 20 MG ORAL TABLET 1 tab daily at bedtime 2 SIMVASTATIN 57130915311 No Longer Active Mitch Urbina DO Active LOVENOX 100 MG/ML SUBCUTANEOUS SOLUTION One injection twice a da y ENOXAPARIN SODIUM 60066010630 No Longer Active Carmine Yusuf MD Active JANUVIA 50 MG ORAL TABLET Take one by mouth daily SITAGLIPTIN PHOSPHATE 89070176931 Active Renee Oconnoreder DE LA ROSA Active JANUVIA 100 MG ORAL TABLET 1/2 by mouth every day 2011 SITAGLIPTIN PHOSPHATE 62885145355 No Longer Active Bijal Segal RN Acti ve METFORMIN HCL 500 MG ORAL TABLET 2 by mouth twice daily METFORMIN HCL 83544745440 No Longer Active Renee Oconnor LPN Active COLCRYS 0.6 MG ORAL TABLET 1 po q 6 hours prn gout pain COLCHICINE 11681389412 No Longer Active Camila Reese Active LISINOPRIL 5 MG ORAL TABLET 1 by mouth every day 11/17 LISINOPRIL 23329385632 No Longer Active Nguyen Peerz Active KLOR-CON 20 MEQ ORAL PACKET Take one by mouth daily 20 09/10/08 POTASSIUM CHLORIDE 80165386806 No Longer Active Nguyen Perez Active FUROSEMIDE 40 MG ORAL TABLET 1 by mouth daily F UROSEMIDE 62022419796 No Longer Active Nguyen Perez Active PROVIGIL 100 MG ORAL TABLET Take one by mouth daily 20 08/20/04 MODAFINIL 27342970208 No Longer Active Mitch Urbina DO Active BACTRIM DS 800-160 MG ORAL TABLET 1 tab by mouth twice daily 201 10/19/09 TRIMETHOPRIM-SULFAMETHOXAZOLE 89131794092 No Longer Active C alberto Hays MD Active ADULT ASPIRIN LOW STRENGTH 81 MG ORAL TABLET DISINTEGR ATING 1 by mouth every daily ASPIRIN 34668899502 Active Mitch Urbina DO Ac tive BACTRIM DS 800-160 MG ORAL TABLET 1 tab by mouth twice daily 201 10/19/09 BACTRIM DS 800-160 MG ORAL TABLET 529565 TRIMETHOPRIM-SULFAMETHOXAZOLE Inactive PROVIGIL 100 MG ORAL TABLET Take one by mouth daily 08/20/04 PROVIGIL 100 MG ORAL TABLET 223520 MODAFINIL Inactive FUROSEMIDE 40 MG ORAL TABLET 1 by mouth daily FUROSEMIDE 40 MG ORAL TABLET 769407 FUROSEMIDE Inactive KLOR-CON 20 MEQ ORAL PACKET Take one by mouth daily 09/10/08 KLOR- CON 20 MEQ ORAL PACKET 1131950 POTASSIUM CHLORIDE Inactive LISINOPRIL 5 MG ORAL TABLET 1 by mouth every day 11/17 LISINOPRIL 5 MG ORAL TABLET 384059 LISINOPRIL Inactive COLCRYS 0.6 MG ORAL TABLET 1 po q 6 hours prn gout pain COLCRYS 0.6 MG ORAL TABLET 346331 COLCHICINE Inactive JANUVIA 100 MG ORAL TABLET 1/2 by mouth every day 2011 JANUVIA 100 MG ORAL TABLET SITAGLIPTIN PHOSPHATE Inactive SIMVASTATIN 20 MG ORAL TABLET 1 tab daily at bedtime 2 SIMVASTATIN 20 MG ORAL TABLET 482309 SIMVASTATIN Inactive COUMADIN 6 MG ORAL TABLET 1 by mouth every other day COUMADIN 6 MG ORAL TABLET 826988 WARFARIN SODIUM Inactive COUMADIN 5 MG ORAL TABLET 1 by mouth every other day COUMADIN 5 MG ORAL TABLET 011159 WARFARIN SODIUM Inactive LISINOPRIL 20 MG ORAL TABLET 1 tab po at HS LISINOPRIL 20 MG ORAL TABLET 273151 LISINOPRIL Inactive LISINOPRIL-HYDROCHLOROTHIAZIDE 20-12.5 MG ORAL TABLET 1 tab by m outh daily LISINOPRIL-HYDROCHLOROTHIAZIDE 20-12.5 MG ORAL TABLET 088750 LISINOPRIL-HYDROCHLOROTHIAZIDE Inactive POLYTRIM 32856-1.1 UNIT/ML-% OPHTHALMIC SOLUTION 1 rui p in affected eye every 3 hours while awake x 7 days POLYTRIM 1000 0-0.1 UNIT/ML-% OPHTHALMIC SOLUTION 764717 POLYMYXIN B-TRIMETHOPRIM Inactive COUMADIN 4 MG ORAL TABLET 1 tablet daily COUMADIN 4 MG ORAL TABLET 954312 WARFARIN SODIUM Inactive CLONIDINE HCL 0.1 MG ORAL TABLET 1 po bid 7 days, then 1/2 t ab po bid 7 days CLONIDINE HCL 0.1 MG ORAL TABLET 881652 CLONIDIN E HCL Inactive ALLOPURINOL 300 MG ORAL TABLET Take 1 tablet by mouth daily 2012 ALLOPURINOL 300 MG ORAL TABLET 632567 ALLOPURINOL I nactive MECLIZINE HCL 25 MG ORAL TABLET 1 po tid 3 days, then 1/2 ta b tid 3 days MECLIZINE HCL 25 MG ORAL TABLET 755544 MECLIZINE HCL Inactive AMLODIPINE BESYLATE 5 MG ORAL TABLET 1 tablet by mouth daily 201 01/20/04 AMLODIPINE BESYLATE 5 MG ORAL TABLET 906063 AMLODIPINE BESYLATE Inactive KEFLEX 500 MG ORAL CAPSULE 1 po qid K EFLEX 500 MG ORAL CAPSULE 371829 CEPHALEXIN Inactive COLCRYS 0.6 MG ORAL TABLET 1 tab qid prn gout COLCRYS 0.6 MG ORAL TABLET 390518 COLCHICINE Inactive FAMOTIDINE 20 MG ORAL TABLET by mouth twice a day 2017 FAMOTIDINE 20 MG ORAL TABLET 042268 FAMOTIDINE Inactive GLIMEPIRIDE 2 MG ORAL TABLET 1 po BID GLIMEPIRIDE 2 MG ORAL TABLET 383010 GLIMEPIRIDE Inactive AMLODIPINE BESYLATE 5 MG ORAL TABLET 1 tablet by mouth daily 201 05/19/02 AMLODIPINE BESYLATE 5 MG ORAL TABLET 149015 AMLODIPINE BESYLATE Inactive LOVENOX 100 MG/ML SUBCUTANEOUS SOLUTION One injection twice a da y LOVENOX 100 MG/ML SUBCUTANEOUS SOLUTION 828175 ENOXAPAR IN SODIUM Inactive PREDNISONE 20 MG ORAL TABLET 2 tabs daily for 3 days 1 tab d aily for 3 days PREDNISONE 20 MG ORAL TABLET 000675 PREDNISONE Inactive KEFLEX 500 MG ORAL CAPSULE 1 capsule by mouth three times da rocky x10 days KEFLEX 500 MG ORAL CAPSULE 852850 CEPHALEXIN I nactive Advance Directives Directive Description [...] - Chem istry sodium, serum 138 mmol/L 518-822 5015/11/07 potassium, serum 4.5 mmol/L 3.5-5.2 chloride, serum [...] 0.70 mg/dL 0.00-1.00 sodium, serum 140 mmol/L 326-228 1932/11/01 carbon dioxide, venous blood 28.6 mmol/L 21.0-32 [...] leukocyte count, blood 6.7 10^3/MM^3 10*3/mm3 4.6-10.2 mean corpuscular hemoglobin, RBC [...] mg/dL Encounters Code Encounter Date Provider Facility CPT-94504 [id number] Vst-Est Level IV 16:21:22 CDT Stephy Ambrose [facility] CPT-15568 Level 3 Est. Patient 15:18:36 CDT Becky anderson [facility] CPT-13023 [id number] Vst-Est Level IV 10:06:35 CDT Stephy Ambrose [facility]-26424 [id number] Vst-Est Level IV 10:52:00 SALES TRAINER Stephy Ambrose [facility] CPT-30239 Level 3 Est. Patient 18:25:53 CDT Mitch luis [facility] CPT-71067 Level 3 Est. Patient 19:43:34 CDT Mitch luis [facility] CPT-20566 Level 4 Est. Patient 09:30:18 CDT Mitch luis [facility] CPT-23519 Level 3 Est. Patient 15:10:14 CDT Joe kamara [facility]-10314 Level 3 Est. Patient 15:03:46 CDT Joe kamara [facility] CPT-74081 Level 3 Est. Patient 14:21:06 CDT Mitch Arnol L ee [facility]-85268 Level 3 Est. Patient 14:52:06 CDT Joe kamara [facility]-42146 Level 3 Est. Patient 09:34:30 SALES TRAINER Mitch W L ee [facility]-64891 Level 3 Est. Patient 09:37:15 CDT Mitch W L ee [facility]-22110 Level 3 Est. Patient 17:01:00 SALES TRAINER Mitch W L ee [facility] CPT-59852 Level 3 Est. Patient 13:53:19 SALES TRAINER Mitch W L ee [facility] CPT-24408 Level 3 Est. Patient 19:19:37 SALES TRAINER Mitch W L janelle [facility] CPT-45541 Level 3 Est. Patient 13:25:53 SALES TRAINER Tavo toure MD [facility]-70156 Level 3 Est. Patient 18:17:28 CDT Mitch W L ee [facility] CPT-83315 Level 3 Est. Patient 15:22:57 CDT Mitch W L ee [facility]-80534 Level 3 Est. Patient 18:21:50 CDT Mitch W L ee [facility]-16712 Level 3 Est. Patient 18:20:38 CDT Mitch W L ee [facility] CPT-15920 Level 3 Est. Patient 15:37:55 CDT Mitch W L ee [facility] CPT-82287 Level 2 Est. Patient 15:54:44 CDT Carmine benton MD [facility]-28998 Level 3 Est. Patient 21:46:01 SALES TRAINER Mitch W L ee [facility] CPT-20955 Level 3 Est. Patient 22:15:50 CDT Mitch luis [facility] CPT-17506 Level 3 Est. Patient 10:48:15 CDT Mitch luis [facility] CPT-31380 Level 3 Est. Patient 23:20:57 CDT Tavo toure MD [facility] CPT-56679 Level 3 Est. Patient 16:26:13 CDT Mitch luis [facility] Procedures Code Procedure Name Date Entry Date Standard Desc ription CPT-67615 Venipuncture Draw Fee 14:46:55 SALES TRAINER CPT-03434 Venipuncture Draw Fee 08:26:21 CDT CPT-66214 Venous Duplex Left Leg XRAY USE ONLY 10:43:10 CDT CPT-42483 Venipuncture Draw Fee 17:04:55 CDT CPT-48678 Venipuncture Draw Fee 17:20:50 CDT CPT-13767 Venipuncture Draw Fee 18:00:48 CDT CPT-11200 Venipuncture Draw Fee 14:56:20 CDT CPT-JTINJ Asp/Joint Injection 18:47:02 CDT CPT-49780 Venipuncture Draw Fee 09:26:17 CDT CPT-01361 PT/INR - LAB USE ONLY 13:32:49 SALES TRAINER CPT-64883 Venipuncture Draw Fee 13:32:49 SALES TRAINER CPT-01617 PT/INR - LAB USE ONLY 10:34:49 SALES TRAINER CPT-51720 Venipuncture Draw Fee 10:34:48 SALES TRAINER CPT-17402 PT/INR - LAB USE ONLY 09:22:03 SALES TRAINER CPT-43665 Venipuncture Draw Fee 09:22:02 SALES TRAINER CPT-67650 Hemoccult IFOBT - LAB USE ONLY 10:27:22 CDT CPT-98168 Venipuncture Draw Fee 08:27:08 CDT CPT-24200 Liver Profile - LAB USE ONLY 08:27:07 CDT 2 CPT-10346 Microalbumin - LAB USE ONLY 08:27:07 CDT 20 25/05/09 CPT-31345 PT/INR - LAB USE ONLY 08:27:07 CDT CPT-98505 HGBA1C - LAB USE ONLY 08:27:07 CDT CPT-46277 CBC - LAB USE ONLY 08:27:07 CDT CPT-38176 Venipuncture Draw Fee 11:09:14 CDT CPT-78441 Venipuncture Draw Fee 08:32:21 SALES TRAINER CPT-08029 Venipuncture Draw Fee 09:38:56 SALES TRAINER CPT-47397 No Charge Offi Visit 21:36:07 CDT 1 CPT-46528 Venipuncture Draw Fee 10:13:28 SALES TRAINER CPT-61441 Venipuncture Draw Fee 08:31:11 CDT CPT-90550 Aspir/Inject Med Joint 18:17:28 CDT CPT-72176 Venipuncture Draw Fee 10:13:30 CDT CPT-32592 Venipuncture Draw Fee 08:31:43 SALES TRAINER CPT-JTINJ Joint Injection 18:34:50 CDT CPT-45416 Knee 3V 12:25:09 CDT CPT-22997 Venipuncture Draw Fee 12:15:57 CDT CPT-060 Medical Surveillance Exam 21:31:43 CDT 2011 CPT-27680 Venipuncture Draw Fee 08:32:05 SALES TRAINER CPT-OV Office Visit 18:19:06 CDT
--- OUTSIDE RECORDS SUMMARY | 2020-01-18 13:58 | XMS REPORT | Clinical Summary ---
Author Author Admin, Mitch Leon Organization [facility] [place] Address Unknown Phone Unavailable Allergies, Adverse Reactions, [...] and inoculation against influenza Hypercalcemia 275.42 Active Adiranna Isidro MA Hypercalcemia CELLULITIS, GROIN, LEFT ICD-682.2 [...] TAKE 1 TABLET DAILY SITAGLIPT IN PHOSPHATE 76381474870 Active Maria Rivas RN Active INVOKANA TABS 100MG TAKE 1 TABLET DAILY CANAGLIFL OZIN 57568319695 Active Maria Rivas RN Active AMLODIPINE BESYLATE 5 MG ORAL TABLET 1 tablet by mouth daily 201 05/19/02 AMLODIPINE BESYLATE 04828053686 No Longer Active Maria Briones Active WARFARIN TABS 1MG TAKE 2 TABLETS (2 MG) DAILY WITH THE 5 MG TABLET TO EQUAL 7 MG DAILY WARFARIN SODIUM 27744210812 Active Maria Briones Active WARFARIN SODIUM 5 MG TABS TAKE 1 TABLET DAILY W ARFARIN SODIUM 49725398405 Active Allison Anthony APRN-C Active KEFLEX 500 MG ORAL CAPSULE 1 capsule by mouth three times da rocky x10 days CEPHALEXIN 15196688712 No Longer Active Maria landaverde RN Active METOPROLOL TARTRATE TABS 50MG TAKE 1 TABLET TWICE A DAY ([facility]) METOPROLOL TARTRATE 55412952317 Active Maria Briones Active DOXAZOSIN MESYLATE 2 MG ORAL TABLET 1 po q day for pr ostate and blood pressure DOXAZOSIN MESYLATE 47467192304 Active Mitch Urbina DO Active LOSARTAN TABS 100MG TAKE 1 TABLET DAILY FOR BLOOD PRESSURE LOSARTAN POTASSIUM 24922547227 Active Maria Rivas RN Active FLUTICASONE PROPIONATE 50 MCG/ACT NASAL SUSPENSION 1 s pray each nostril twice daily for 1 week, then once daily FLUTICASONE DE OPIONATE 80968080786 Active Becky Sell [employer]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 [employer]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 PREDNISONE 20 MG ORAL TABLET 2 tabs daily for 3 days 1 tab d aily for 3 days PREDNISONE 46724407536 No Longer Active Becky Sell [employer]IOR [employer] DEVELOPER Active MINOXIDIL 2.5 MG ORAL TABLET 1 tablet twice daily for high b lood pressure MINOXIDIL 17226102597 Active Mitch Urbina DO Ac tive METFORMIN HCL ER 500 MG ORAL TABLET EXTENDED RELEASE 2 4 HOUR 2 tablets by mouth twice daily METFORMIN HCL 69719655648 Active Mitch Urbina DO Active GLIMEPIRIDE 4 MG ORAL TABLET 1 tablet by mouth twice daily f or diabetes GLIMEPIRIDE 81584795608 Active Mitch Urbina DO Active GLIMEPIRIDE 2 MG ORAL TABLET 1 po BID GLIMEPI RIDE 39774498696 No Longer Active Mitch Urbina DO Active PROVIGIL 200 MG ORAL TABLET 1/2 tab po q day MODA FINIL 43515277361 Active Maria Rivas RN Active FAMOTIDINE 20 MG ORAL TABLET by mouth twice a day 2017 FAMOTIDINE 22179182077 No Longer Active Mitch Urbina DO Active COLCRYS 0.6 MG ORAL TABLET 1 tab qid prn gout C OLCHICINE 78587108945 No Longer Active Mitch Urbina DO Active KEFLEX 500 MG ORAL CAPSULE 1 po qid CEPHALEXI N 69406009670 No Longer Active Mitch Urbina DO Active AMLODIPINE BESYLATE 5 MG ORAL TABLET 1 tablet by mouth daily 201 01/20/04 AMLODIPINE BESYLATE 64039157540 No Longer Active Joe fulton APRN Active MITIGARE 0.6 MG ORAL CAPSULE 2 capsules at onset of go ut pain, then take one capsule at 1 hour if symptoms persist. COLCHICINE 59 186665941 Active Mitch Urbina DO Active MECLIZINE HCL 25 MG ORAL TABLET 1 po tid 3 days, then 1/2 ta b tid 3 days MECLIZINE HCL 70240799822 No Longer Active Corey SEGURA Active ALLOPURINOL 300 MG ORAL TABLET Take 1 tablet by mouth daily 2012 ALLOPURINOL 13420357207 No Longer Active Corey SEGURA Active CLONIDINE HCL 0.1 MG ORAL TABLET 1 po bid 7 days, then 1/2 t ab po bid 7 days CLONIDINE HCL 66839155468 No Longer Active Corey SEGURA Active COUMADIN 4 MG ORAL TABLET 1 tablet daily WARFAR IN SODIUM 70146558682 No Longer Active Corey SEGURA Active POLYTRIM 84458-0.1 UNIT/ML-% OPHTHALMIC SOLUTION 1 rui p in affected eye every 3 hours while awake x 7 days POLYMYXIN B-TRIMETHOP RIM 09492543726 No Longer Active Corey SEGURA Active LOSARTAN POTASSIUM-HCTZ 100-12.5 MG ORAL TABLET 1 by m outh daily for high blood pressure LOSARTAN POTASSIUM-HCTZ 28692086882 No Longer A ctive Mitch Urbina DO Active LISINOPRIL-HYDROCHLOROTHIAZIDE 20-12.5 MG ORAL TABLET 1 tab by m outh daily LISINOPRIL-HYDROCHLOROTHIAZIDE 99080983758 No Longer Active Mitch Urbina DO Active LISINOPRIL 20 MG ORAL TABLET 1 tab po at HS LIS INOPRIL 71664336758 No Longer Active Mitch Urbina DO Active COUMADIN 5 MG ORAL TABLET 1 by mouth every other day 2 WARFARIN SODIUM 36682285587 No Longer Active Mitch Urbina DO Active COUMADIN 6 MG ORAL TABLET 1 by mouth every other day 2 WARFARIN SODIUM 42263076511 No Longer Active Mitch Urbina DO Active SIMVASTATIN 40 MG ORAL TABLET 1 tab daily at bedtime SIMVASTATIN 25172810484 Active Maria Rivas RN Active SIMVASTATIN 20 MG ORAL TABLET 1 tab daily at bedtime 2 SIMVASTATIN 13428433638 No Longer Active Mitch Urbina DO Active LOVENOX 100 MG/ML SUBCUTANEOUS SOLUTION One injection twice a da y ENOXAPARIN SODIUM 44475260360 No Longer Active Carmine Yusuf MD Active JANUVIA 100 MG ORAL TABLET 1/2 by mouth every day 2011 SITAGLIPTIN PHOSPHATE 95910597216 No Longer Active Bijal Segal RN Acti ve METFORMIN HCL 500 MG ORAL TABLET 2 by mouth twice daily METFORMIN HCL 87996364087 No Longer Active Renee Oconnor LPN Active COLCRYS 0.6 MG ORAL TABLET 1 po q 6 hours prn gout pain COLCHICINE 16403614974 No Longer Active Camila Reese Active LISINOPRIL 5 MG ORAL TABLET 1 by mouth every day 11/17 LISINOPRIL 44371126017 No Longer Active Nguyen Perez Active KLOR-CON 20 MEQ ORAL PACKET Take one by mouth daily 20 09/10/08 POTASSIUM CHLORIDE 28250920656 No Longer Active Nguyen Perez Active FUROSEMIDE 40 MG ORAL TABLET 1 by mouth daily F UROSEMIDE 03646347952 No Longer Active Nguyen Perez Active PROVIGIL 100 MG ORAL TABLET Take one by mouth daily 20 08/20/04 MODAFINIL 71969254934 No Longer Active Mitch Urbina DO Active BACTRIM DS 800-160 MG ORAL TABLET 1 tab by mouth twice daily 201 10/19/09 TRIMETHOPRIM-SULFAMETHOXAZOLE 46172772146 No Longer Active C alberto Hays MD Active ADULT ASPIRIN LOW STRENGTH 81 MG ORAL TABLET DISINTEGR ATING 1 by mouth every daily ASPIRIN 86749699805 Active Mitch Urbina DO Ac tive BACTRIM DS 800-160 MG ORAL TABLET 1 tab by mouth twice daily 201 10/19/09 BACTRIM DS 800-160 MG ORAL TABLET 795397 TRIMETHOPRIM-SULFAMETHOXAZOLE Inactive PROVIGIL 100 MG ORAL TABLET Take one by mouth daily 08/20/04 PROVIGIL 100 MG ORAL TABLET 961286 MODAFINIL Inactive FUROSEMIDE 40 MG ORAL TABLET 1 by mouth daily FUROSEMIDE 40 MG ORAL TABLET 492833 FUROSEMIDE Inactive KLOR-CON 20 MEQ ORAL PACKET Take one by mouth daily 09/10/08 KLOR- CON 20 MEQ ORAL PACKET 0997212 POTASSIUM CHLORIDE Inactive LISINOPRIL 5 MG ORAL TABLET 1 by mouth every day 11/17 LISINOPRIL 5 MG ORAL TABLET 657927 LISINOPRIL Inactive COLCRYS 0.6 MG ORAL TABLET 1 po q 6 hours prn gout pain COLCRYS 0.6 MG ORAL TABLET 306053 COLCHICINE Inactive JANUVIA 100 MG ORAL TABLET 1/2 by mouth every day 2011 JANUVIA 100 MG ORAL TABLET SITAGLIPTIN PHOSPHATE Inactive SIMVASTATIN 20 MG ORAL TABLET 1 tab daily at bedtime 2 SIMVASTATIN 20 MG ORAL TABLET 856858 SIMVASTATIN Inactive COUMADIN 6 MG ORAL TABLET 1 by mouth every other day 2 COUMADIN 6 MG ORAL TABLET 948628 WARFARIN SODIUM Inactive COUMADIN 5 MG ORAL TABLET 1 by mouth every other day 2 COUMADIN 5 MG ORAL TABLET 420667 WARFARIN SODIUM Inactive LISINOPRIL 20 MG ORAL TABLET 1 tab po at HS LISINOPRIL 20 MG ORAL TABLET 649706 LISINOPRIL Inactive LISINOPRIL-HYDROCHLOROTHIAZIDE 20-12.5 MG ORAL TABLET 1 tab by m outh daily LISINOPRIL-HYDROCHLOROTHIAZIDE 20-12.5 MG ORAL TABLET 740757 LISINOPRIL-HYDROCHLOROTHIAZIDE Inactive POLYTRIM 75829-8.1 UNIT/ML-% OPHTHALMIC SOLUTION 1 rui p in affected eye every 3 hours while awake x 7 days POLYTRIM 1000 0-0.1 UNIT/ML-% OPHTHALMIC SOLUTION 069626 POLYMYXIN B-TRIMETHOPRIM Inactive COUMADIN 4 MG ORAL TABLET 1 tablet daily COUMADIN 4 MG ORAL TABLET 319807 WARFARIN SODIUM Inactive CLONIDINE HCL 0.1 MG ORAL TABLET 1 po bid 7 days, then 1/2 t ab po bid 7 days CLONIDINE HCL 0.1 MG ORAL TABLET 831262 CLONIDIN E HCL Inactive ALLOPURINOL 300 MG ORAL TABLET Take 1 tablet by mouth daily 2012 ALLOPURINOL 300 MG ORAL TABLET 963819 ALLOPURINOL I nactive MECLIZINE HCL 25 MG ORAL TABLET 1 po tid 3 days, then 1/2 ta b tid 3 days MECLIZINE HCL 25 MG ORAL TABLET 066443 MECLIZINE HCL Inactive AMLODIPINE BESYLATE 5 MG ORAL TABLET 1 tablet by mouth daily 201 01/20/04 AMLODIPINE BESYLATE 5 MG ORAL TABLET 884134 AMLODIPINE BESYLATE Inactive KEFLEX 500 MG ORAL CAPSULE 1 po qid K EFLEX 500 MG ORAL CAPSULE 489609 CEPHALEXIN Inactive COLCRYS 0.6 MG ORAL TABLET 1 tab qid prn gout COLCRYS 0.6 MG ORAL TABLET 727386 COLCHICINE Inactive FAMOTIDINE 20 MG ORAL TABLET by mouth twice a day 2017 FAMOTIDINE 20 MG ORAL TABLET 205635 FAMOTIDINE Inactive GLIMEPIRIDE 2 MG ORAL TABLET 1 po BID GLIMEPIRIDE 2 MG ORAL TABLET 947973 GLIMEPIRIDE Inactive AMLODIPINE BESYLATE 5 MG ORAL TABLET 1 tablet by mouth daily 201 05/19/02 AMLODIPINE BESYLATE 5 MG ORAL TABLET 500589 AMLODIPINE BESYLATE Inactive LOVENOX 100 MG/ML SUBCUTANEOUS SOLUTION One injection twice a da y LOVENOX 100 MG/ML SUBCUTANEOUS SOLUTION 751788 ENOXAPAR IN SODIUM Inactive PREDNISONE 20 MG ORAL TABLET 2 tabs daily for 3 days 1 tab d aily for 3 days PREDNISONE 20 MG ORAL TABLET 327962 PREDNISONE Inactive KEFLEX 500 MG ORAL CAPSULE 1 capsule by mouth three times da rocky x10 days KEFLEX 500 MG ORAL CAPSULE 544742 CEPHALEXIN I nactive Advance Directives Directive Description [...] - Chem istry sodium, serum 138 mmol/L 180-855 7411/11/07 potassium, serum 4.5 mmol/L 3.5-5.2 chloride, serum [...] Panel - Chemistry sodium, serum 140 mmol/L 487-930 8046/11/01 carbon dioxide, venous blood 28.6 mmol/L 21.0-32 [...] mg/dL Encounters Code Encounter Date Provider Facility CPT-06727 [id number] Vst-Est Level IV 16:21:22 CDT Bru robinson [facility] CPT-88727 Level 3 Est. Patient 15:18:36 CDT Becky anderson [facility] CPT-88388 [id number] Vst-Est Level IV 10:06:35 CDT Bru robinson [facility] CPT-21751 [id number] Vst-Est Level IV 10:52:00 QA SPECIALIST Bru robinson [facility] CPT-36074 Level 3 Est. Patient 18:25:53 CDT Mitch luis [facility] CPT-38633 Level 3 Est. Patient 19:43:34 CDT Mitch luis [facility] CPT-33618 Level 4 Est. Patient 09:30:18 CDT Mitch luis [facility] CPT-95174 Level 3 Est. Patient 15:10:14 CDT Joe kamara [facility] CPT-33408 Level 3 Est. Patient 15:03:46 CDT Devonjustincarlitos kamara [facility] CPT-09051 Level 3 Est. Patient 14:21:06 CDT Mitch [facility]rose L ee [facility]-17763 Level 3 Est. Patient 14:52:06 CDT Joe kamara [facility]-27120 Level 3 Est. Patient 09:34:30 QA SPECIALIST Mitch W L ee [facility]-09107 Level 3 Est. Patient 09:37:15 CDT Mitch W L ee [facility] CPT-95370 Level 3 Est. Patient 17:01:00 QA SPECIALIST Mitch W L ee [facility] CPT-70251 Level 3 Est. Patient 13:53:19 QA SPECIALIST Mitch W L ee [facility] CPT-20725 Level 3 Est. Patient 19:19:37 QA SPECIALIST Mitch W L ee [facility] CPT-07042 Level 3 Est. Patient 13:25:53 QA SPECIALIST Tavo toure MD [facility]-51111 Level 3 Est. Patient 18:17:28 CDT Mitch W L ee [facility] CPT-57443 Level 3 Est. Patient 15:22:57 CDT Mitch W L ee [facility]-00085 Level 3 Est. Patient 18:21:50 CDT Mitch W L ee [facility]-42165 Level 3 Est. Patient 18:20:38 CDT Mitch W L ee [facility] CPT-84219 Level 3 Est. Patient 15:37:55 CDT Mitch W L ee [facility] CPT-56688 Level 2 Est. Patient 15:54:44 CDT Carmine benton MD [facility]-99343 Level 3 Est. Patient 21:46:01 QA SPECIALIST Mitch luis [facility] CPT-06185 Level 3 Est. Patient 22:15:50 CDT Mitch luis DO [facility] CPT-92953 Level 3 Est. Patient 10:48:15 CDT Mitch luis DO [facility] CPT-27142 Level 3 Est. Patient 23:20:57 CDT Tavo toure MD [facility] CPT-18252 Level 3 Est. Patient 16:26:13 CDT Mitch luis [facility] Procedures Code Procedure Name Date Entry Date Standard Desc ription CPT-20379 Venipuncture Draw Fee 14:46:55 QA SPECIALIST CPT-56843 Venipuncture Draw Fee 08:26:21 CDT CPT-70560 Venous Duplex Left Leg XRAY USE ONLY 10:43:10 CDT CPT-68374 Venipuncture Draw Fee 17:04:55 CDT CPT-37506 Venipuncture Draw Fee 17:20:50 CDT CPT-47777 Venipuncture Draw Fee 18:00:48 CDT CPT-61811 Venipuncture Draw Fee 14:56:20 CDT CPT-JTINJ Asp/Joint Injection 18:47:02 CDT CPT-58019 Venipuncture Draw Fee 09:26:17 CDT CPT-92513 PT/INR - LAB USE ONLY 13:32:49 QA SPECIALIST CPT-20246 Venipuncture Draw Fee 13:32:49 QA SPECIALIST CPT-59038 PT/INR - LAB USE ONLY 10:34:49 QA SPECIALIST CPT-42171 Venipuncture Draw Fee 10:34:48 QA SPECIALIST CPT-23501 PT/INR - LAB USE ONLY 09:22:03 QA SPECIALIST CPT-02996 Venipuncture Draw Fee 09:22:02 QA SPECIALIST CPT-79754 Hemoccult IFOBT - LAB USE ONLY 10:27:22 CDT CPT-46573 Venipuncture Draw Fee 08:27:08 CDT CPT-08537 Liver Profile - LAB USE ONLY 08:27:07 CDT 2 CPT-90601 Microalbumin - LAB USE ONLY 08:27:07 CDT 20 25/05/09 CPT-19997 PT/INR - LAB USE ONLY 08:27:07 CDT CPT-49097 HGBA1C - LAB USE ONLY 08:27:07 CDT CPT-47064 CBC - LAB USE ONLY 08:27:07 CDT CPT-38105 Venipuncture Draw Fee 11:09:14 CDT CPT-13810 Venipuncture Draw Fee 08:32:21 QA SPECIALIST CPT-36956 Venipuncture Draw Fee 09:38:56 QA SPECIALIST CPT-75571 No Charge Offi Visit 21:36:07 CDT 1 CPT-69000 Venipuncture Draw Fee 10:13:28 QA SPECIALIST CPT-13615 Venipuncture Draw Fee 08:31:11 CDT CPT-25664 Aspir/Inject Med Joint 18:17:28 CDT CPT-46052 Venipuncture Draw Fee 10:13:30 CDT CPT-66056 Venipuncture Draw Fee 08:31:43 QA SPECIALIST CPT-JTINJ Joint Injection 18:34:50 CDT CPT-08517 Knee 3V 12:25:09 CDT CPT-96567 Venipuncture Draw Fee 12:15:57 CDT CPT-060 Medical Surveillance Exam 21:31:43 CDT 2011 CPT-50008 Venipuncture Draw Fee 08:32:05 QA SPECIALIST CPT-OV Office Visit 18:19:06 CDT
--- OUTSIDE RECORDS SUMMARY | 2020-01-18 13:58 | XMS REPORT | Clinical Summary ---
Author Author Admin, Mitch Leon Organization [facility] Address Unknown Phone Unavailable Allergies, Adverse Reactions, [...] by mouth daily 201 05/19/02 AMLODIPINE BESYLATE [id number] No Longer Active Maria Briones Active WARFARIN TABS 1MG TAKE 2 TABLETS (2 MG) DAILY WITH THE 5 MG TABLET TO EQUAL 7 MG DAILY WARFARIN SODIUM 22559905988 Active Maria Briones Active WARFARIN SODIUM 5 MG TABS TAKE 1 TABLET DAILY W ARFARIN SODIUM 76043695700 Active Allison PERERA Active KEFLEX 500 MG ORAL CAPSULE 1 capsule by mouth three times da rocky x10 days CEPHALEXIN 58456207866 No Longer Active Maria landaverde RN Active METOPROLOL TARTRATE TABS 50MG TAKE 1 TABLET TWICE A DAY ([facility] WORK) METOPROLOL TARTRATE 42500444105 Active Maria Briones Active DOXAZOSIN MESYLATE 2 MG ORAL TABLET 1 po q day for pr ostate and blood pressure DOXAZOSIN MESYLATE 13246214552 Active Mitch Urbina DO Active LOSARTAN TABS 100MG TAKE 1 TABLET DAILY FOR BLOOD PRESSURE LOSARTAN POTASSIUM 49495806888 Active Maria Rivas RN Active FLUTICASONE PROPIONATE 50 MCG/ACT NASAL SUSPENSION 1 s pray each nostril twice daily for 1 week, then once daily FLUTICASONE OR OPIONATE 68125755904 Active Becky Sell FINAL CIGAR AND BOX EXAMINER Active PREDNISONE 20 MG ORAL TABLET 2 tabs daily for 3 days 1 tab d aily for 3 days PREDNISONE 76974278117 No Longer Active Becky Sell FINAL CIGAR AND BOX EXAMINER Active MINOXIDIL 2.5 MG ORAL TABLET 1 tablet twice daily for high b lood pressure MINOXIDIL 17559623271 Active Mitch Urbina DO Ac tive METFORMIN HCL ER 500 MG ORAL TABLET EXTENDED RELEASE 2 4 HOUR 2 tablets by mouth twice daily METFORMIN HCL 64244231283 Active Mitch Urbina DO Active GLIMEPIRIDE 4 MG ORAL TABLET 1 tablet by mouth twice daily f or diabetes GLIMEPIRIDE 37743008355 Active Mitch Urbina DO Active GLIMEPIRIDE 2 MG ORAL TABLET 1 po BID GLIMEPI RIDE 36420922159 No Longer Active Mitch Urbina DO Active PROVIGIL 200 MG ORAL TABLET 1/2 tab po q day MODA FINIL 60508279840 Active Maria Rivas RN Active FAMOTIDINE 20 MG ORAL TABLET by mouth twice a day 2017 FAMOTIDINE 65076321454 No Longer Active Mitch Urbina DO Active COLCRYS 0.6 MG ORAL TABLET 1 tab qid prn gout C OLCHICINE 33396971758 No Longer Active Mitch Urbina DO Active KEFLEX 500 MG ORAL CAPSULE 1 po qid CEPHALEXI N 41846522455 No Longer Active Mitch Urbina DO Active AMLODIPINE BESYLATE 5 MG ORAL TABLET 1 tablet by mouth daily 201 01/20/04 AMLODIPINE BESYLATE 57689474756 No Longer Active Joe fulton APRN Active MITIGARE 0.6 MG ORAL CAPSULE 2 capsules at onset of go ut pain, then take one capsule at 1 hour if symptoms persist. COLCHICINE 59 494288408 Active Mtich Urbina DO Active INVOKANA 100 MG ORAL TABLET 1 tablet orally daily CANAGLIFLOZIN 25816676267 Active Mitch Urbina DO Active MECLIZINE HCL 25 MG ORAL TABLET 1 po tid 3 days, then 1/2 ta b tid 3 days MECLIZINE HCL 12400379748 No Longer Active Corey SEGURA Active ALLOPURINOL 300 MG ORAL TABLET Take 1 tablet by mouth daily 2012 ALLOPURINOL 58312719639 No Longer Active Corey SEGURA Active CLONIDINE HCL 0.1 MG ORAL TABLET 1 po bid 7 days, then 1/2 t ab po bid 7 days CLONIDINE HCL 68106496456 No Longer Active Corey SEGURA Active COUMADIN 4 MG ORAL TABLET 1 tablet daily WARFAR IN SODIUM 51962328559 No Longer Active Croey SEGURA Active POLYTRIM 32331-6.1 UNIT/ML-% OPHTHALMIC SOLUTION 1 rui p in affected eye every 3 hours while awake x 7 days POLYMYXIN B-TRIMETHOP RIM 63986399336 No Longer Active Corey SEGURA Active LOSARTAN POTASSIUM-HCTZ 100-12.5 MG ORAL TABLET 1 by m outh daily for high blood pressure LOSARTAN POTASSIUM-HCTZ 85236553156 No Longer A ctive Mitch Urbina DO Active LISINOPRIL-HYDROCHLOROTHIAZIDE 20-12.5 MG ORAL TABLET 1 tab by m outh daily LISINOPRIL-HYDROCHLOROTHIAZIDE 26173237149 No Longer Active Mitch Urbina DO Active LISINOPRIL 20 MG ORAL TABLET 1 tab po at HS LIS INOPRIL 30551177988 No Longer Active Mitch Urbina DO Active COUMADIN 5 MG ORAL TABLET 1 by mouth every other day 2 WARFARIN SODIUM 40857988276 No Longer Active Mitch Urbina DO Active COUMADIN 6 MG ORAL TABLET 1 by mouth every other day 2 WARFARIN SODIUM 79012822953 No Longer Active Mitch Urbina DO Active SIMVASTATIN 40 MG ORAL TABLET 1 tab daily at bedtime SIMVASTATIN 61389221534 Active Maria Rivas RN Active SIMVASTATIN 20 MG ORAL TABLET 1 tab daily at bedtime 2 SIMVASTATIN 02445391738 No Longer Active Mitch Urbina DO Active LOVENOX 100 MG/ML SUBCUTANEOUS SOLUTION One injection twice a da y ENOXAPARIN SODIUM 23940084852 No Longer Active Carmine Yusuf MD Active JANUVIA 50 MG ORAL TABLET Take one by mouth daily SITAGLIPTIN PHOSPHATE 98381903624 Active Renee Oconnoreder DE LA ROSA Active JANUVIA 100 MG ORAL TABLET 1/2 by mouth every day 2011 SITAGLIPTIN PHOSPHATE 51826228886 No Longer Active Bijal Segal RN Acti ve METFORMIN HCL 500 MG ORAL TABLET 2 by mouth twice daily METFORMIN HCL 43342397714 No Longer Active Renee Oconnor LPN Active COLCRYS 0.6 MG ORAL TABLET 1 po q 6 hours prn gout pain COLCHICINE 79037800636 No Longer Active Camila Reese Active LISINOPRIL 5 MG ORAL TABLET 1 by mouth every day 11/17 LISINOPRIL 21905041091 No Longer Active Nguyen Perez Active KLOR-CON 20 MEQ ORAL PACKET Take one by mouth daily 20 09/10/08 POTASSIUM CHLORIDE 53993669684 No Longer Active Nguyen Perez Active FUROSEMIDE 40 MG ORAL TABLET 1 by mouth daily F UROSEMIDE 03255146687 No Longer Active Nguyen Perez Active PROVIGIL 100 MG ORAL TABLET Take one by mouth daily 20 08/20/04 MODAFINIL 69385530725 No Longer Active Mitch Urbina DO Active BACTRIM DS 800-160 MG ORAL TABLET 1 tab by mouth twice daily 201 10/19/09 TRIMETHOPRIM-SULFAMETHOXAZOLE 09313016806 No Longer Active C alberto Hays MD Active ADULT ASPIRIN LOW STRENGTH 81 MG ORAL TABLET DISINTEGR ATING 1 by mouth every daily ASPIRIN 71125049205 Active Mitch Urbina DO Ac tive BACTRIM DS 800-160 MG ORAL TABLET 1 tab by mouth twice daily 201 10/19/09 BACTRIM DS 800-160 MG ORAL TABLET 591314 TRIMETHOPRIM-SULFAMETHOXAZOLE Inactive PROVIGIL 100 MG ORAL TABLET Take one by mouth daily 08/20/04 PROVIGIL 100 MG ORAL TABLET 807741 MODAFINIL Inactive FUROSEMIDE 40 MG ORAL TABLET 1 by mouth daily FUROSEMIDE 40 MG ORAL TABLET 707542 FUROSEMIDE Inactive KLOR-CON 20 MEQ ORAL PACKET Take one by mouth daily 09/10/08 KLOR- CON 20 MEQ ORAL PACKET 3360161 POTASSIUM CHLORIDE Inactive LISINOPRIL 5 MG ORAL TABLET 1 by mouth every day 11/17 LISINOPRIL 5 MG ORAL TABLET 266726 LISINOPRIL Inactive COLCRYS 0.6 MG ORAL TABLET 1 po q 6 hours prn gout pain COLCRYS 0.6 MG ORAL TABLET 924689 COLCHICINE Inactive JANUVIA 100 MG ORAL TABLET 1/2 by mouth every day 2011 JANUVIA 100 MG ORAL TABLET SITAGLIPTIN PHOSPHATE Inactive SIMVASTATIN 20 MG ORAL TABLET 1 tab daily at bedtime 2 SIMVASTATIN 20 MG ORAL TABLET 128809 SIMVASTATIN Inactive COUMADIN 6 MG ORAL TABLET 1 by mouth every other day COUMADIN 6 MG ORAL TABLET 908224 WARFARIN SODIUM Inactive COUMADIN 5 MG ORAL TABLET 1 by mouth every other day COUMADIN 5 MG ORAL TABLET 974605 WARFARIN SODIUM Inactive LISINOPRIL 20 MG ORAL TABLET 1 tab po at HS LISINOPRIL 20 MG ORAL TABLET 848339 LISINOPRIL Inactive LISINOPRIL-HYDROCHLOROTHIAZIDE 20-12.5 MG ORAL TABLET 1 tab by m outh daily LISINOPRIL-HYDROCHLOROTHIAZIDE 20-12.5 MG ORAL TABLET 801344 LISINOPRIL-HYDROCHLOROTHIAZIDE Inactive POLYTRIM 79932-7.1 UNIT/ML-% OPHTHALMIC SOLUTION 1 rui p in affected eye every 3 hours while awake x 7 days POLYTRIM 1000 0-0.1 UNIT/ML-% OPHTHALMIC SOLUTION 040699 POLYMYXIN B-TRIMETHOPRIM Inactive COUMADIN 4 MG ORAL TABLET 1 tablet daily COUMADIN 4 MG ORAL TABLET 553273 WARFARIN SODIUM Inactive CLONIDINE HCL 0.1 MG ORAL TABLET 1 po bid 7 days, then 1/2 t ab po bid 7 days CLONIDINE HCL 0.1 MG ORAL TABLET 666215 CLONIDIN E HCL Inactive ALLOPURINOL 300 MG ORAL TABLET Take 1 tablet by mouth daily 2012 ALLOPURINOL 300 MG ORAL TABLET 387266 ALLOPURINOL I nactive MECLIZINE HCL 25 MG ORAL TABLET 1 po tid 3 days, then 1/2 ta b tid 3 days MECLIZINE HCL 25 MG ORAL TABLET 844953 MECLIZINE HCL Inactive AMLODIPINE BESYLATE 5 MG ORAL TABLET 1 tablet by mouth daily 201 01/20/04 AMLODIPINE BESYLATE 5 MG ORAL TABLET 896628 AMLODIPINE BESYLATE Inactive KEFLEX 500 MG ORAL CAPSULE 1 po qid K EFLEX 500 MG ORAL CAPSULE 449405 CEPHALEXIN Inactive COLCRYS 0.6 MG ORAL TABLET 1 tab qid prn gout COLCRYS 0.6 MG ORAL TABLET 590196 COLCHICINE Inactive FAMOTIDINE 20 MG ORAL TABLET by mouth twice a day 2017 FAMOTIDINE 20 MG ORAL TABLET 697964 FAMOTIDINE Inactive GLIMEPIRIDE 2 MG ORAL TABLET 1 po BID GLIMEPIRIDE 2 MG ORAL TABLET 382991 GLIMEPIRIDE Inactive AMLODIPINE BESYLATE 5 MG ORAL TABLET 1 tablet by mouth daily 201 05/19/02 AMLODIPINE BESYLATE 5 MG ORAL TABLET 498614 AMLODIPINE BESYLATE Inactive LOVENOX 100 MG/ML SUBCUTANEOUS SOLUTION One injection twice a da y LOVENOX 100 MG/ML SUBCUTANEOUS SOLUTION 076769 ENOXAPAR IN SODIUM Inactive PREDNISONE 20 MG ORAL TABLET 2 tabs daily for 3 days 1 tab d aily for 3 days PREDNISONE 20 MG ORAL TABLET 635428 PREDNISONE Inactive KEFLEX 500 MG ORAL CAPSULE 1 capsule by mouth three times da rocky x10 days KEFLEX 500 MG ORAL CAPSULE 779664 CEPHALEXIN I nactive Advance Directives Directive Description [...] - Chem istry sodium, serum 138 mmol/L 472-587 9120/11/07 potassium, serum 4.5 mmol/L 3.5-5.2 chloride, serum [...] 0.70 mg/dL 0.00-1.00 sodium, serum 140 mmol/L 577-736 3078/11/01 carbon dioxide, venous blood 28.6 mmol/L 21.0-32 [...] 11 .6-14.8 platelet count 326 10^3/MM^3 10*3/mm3 718-075 9496/11/01 erythrocyte (RBC) count 5.24 10^6/MM^3 10*6/mm3 4.50-6.5 [...] mg/dL Encounters Code Encounter Date Provider Facility CPT-02784 [id number] Vst-Est Level IV 16:21:22 CDT Stephy Ambrose [facility] CPT-94038 Level 3 Est. Patient 15:18:36 CDT Becky anderson [facility] CPT-04867 [id number] Vst-Est Level IV 10:06:35 CDT Stephy Ambrose [facility]-36352 [id number]-Ivl Vst-Est Level IV 10:52:00 STABILIZER OPERATOR Stephy Ambrose [facility] CPT-21606 Level 3 Est. Patient 18:25:53 CDT Mitch luis [facility] CPT-52307 Level 3 Est. Patient 19:43:34 CDT Mitch luis [facility] CPT-04650 Level 4 Est. Patient 09:30:18 CDT Mitch luis [facility] CPT-45420 Level 3 Est. Patient 15:10:14 CDT Joe kamara [facility]-30194 Level 3 Est. Patient 15:03:46 CDT Joe kamara [facility] CPT-03449 Level 3 Est. Patient 14:21:06 CDT Mitch Arnol L ee [facility]-66964 Level 3 Est. Patient 14:52:06 CDT Joe kamara [facility]-90691 Level 3 Est. Patient 09:34:30 STABILIZER OPERATOR Mitch W L ee [facility]-28718 Level 3 Est. Patient 09:37:15 CDT Mitch W L ee [facility]-45894 Level 3 Est. Patient 17:01:00 STABILIZER OPERATOR Mitch W L ee [facility] CPT-92739 Level 3 Est. Patient 13:53:19 STABILIZER OPERATOR Mitch W L ee [facility] CPT-85020 Level 3 Est. Patient 19:19:37 STABILIZER OPERATOR Mitch W L janelle [facility] CPT-65847 Level 3 Est. Patient 13:25:53 STABILIZER OPERATOR Tavo toure MD [facility]-34993 Level 3 Est. Patient 18:17:28 CDT Mitch W L ee [facility] CPT-13770 Level 3 Est. Patient 15:22:57 CDT Mitch W L ee [facility]-23483 Level 3 Est. Patient 18:21:50 CDT Mitch W L ee [facility]-51654 Level 3 Est. Patient 18:20:38 CDT Mitch W L ee [facility] CPT-57894 Level 3 Est. Patient 15:37:55 CDT Mitch W L ee [facility] CPT-92570 Level 2 Est. Patient 15:54:44 CDT Carmine benton MD [facility]-23178 Level 3 Est. Patient 21:46:01 STABILIZER OPERATOR Mitch W L ee [facility] CPT-33439 Level 3 Est. Patient 22:15:50 CDT Mitch luis [facility] CPT-45065 Level 3 Est. Patient 10:48:15 CDT Mitch luis [facility] CPT-68461 Level 3 Est. Patient 23:20:57 CDT Tavo toure MD [facility] CPT-09132 Level 3 Est. Patient 16:26:13 CDT Mitch luis [facility] Procedures Code Procedure Name Date Entry Date Standard Desc ription CPT-71973 Venipuncture Draw Fee 14:46:55 STABILIZER OPERATOR CPT-15049 Venipuncture Draw Fee 08:26:21 CDT CPT-80306 Venous Duplex Left Leg XRAY USE ONLY 10:43:10 CDT CPT-98606 Venipuncture Draw Fee 17:04:55 CDT CPT-89414 Venipuncture Draw Fee 17:20:50 CDT CPT-31796 Venipuncture Draw Fee 18:00:48 CDT CPT-40177 Venipuncture Draw Fee 14:56:20 CDT CPT-JTINJ Asp/Joint Injection 18:47:02 CDT CPT-69031 Venipuncture Draw Fee 09:26:17 CDT CPT-31523 PT/INR - LAB USE ONLY 13:32:49 STABILIZER OPERATOR CPT-40742 Venipuncture Draw Fee 13:32:49 STABILIZER OPERATOR CPT-40242 PT/INR - LAB USE ONLY 10:34:49 STABILIZER OPERATOR CPT-40054 Venipuncture Draw Fee 10:34:48 STABILIZER OPERATOR CPT-43915 PT/INR - LAB USE ONLY 09:22:03 STABILIZER OPERATOR CPT-63305 Venipuncture Draw Fee 09:22:02 STABILIZER OPERATOR CPT-01830 Hemoccult IFOBT - LAB USE ONLY 10:27:22 CDT CPT-50784 Venipuncture Draw Fee 08:27:08 CDT CPT-78151 Liver Profile - LAB USE ONLY 08:27:07 CDT 2 CPT-32459 Microalbumin - LAB USE ONLY 08:27:07 CDT 20 25/05/09 CPT-38197 PT/INR - LAB USE ONLY 08:27:07 CDT CPT-63986 HGBA1C - LAB USE ONLY 08:27:07 CDT CPT-37223 CBC - LAB USE ONLY 08:27:07 CDT CPT-81245 Venipuncture Draw Fee 11:09:14 CDT CPT-15082 Venipuncture Draw Fee 08:32:21 STABILIZER OPERATOR CPT-13795 Venipuncture Draw Fee 09:38:56 STABILIZER OPERATOR CPT-81207 No Charge Offi Visit 21:36:07 CDT 1 CPT-67404 Venipuncture Draw Fee 10:13:28 STABILIZER OPERATOR CPT-29830 Venipuncture Draw Fee 08:31:11 CDT CPT-21679 Aspir/Inject Med Joint 18:17:28 CDT CPT-17004 Venipuncture Draw Fee 10:13:30 CDT CPT-11673 Venipuncture Draw Fee 08:31:43 STABILIZER OPERATOR CPT-JTINJ Joint Injection 18:34:50 CDT CPT-06760 Knee 3V 12:25:09 CDT CPT-64868 Venipuncture Draw Fee 12:15:57 CDT CPT-060 Medical Surveillance Exam 21:31:43 CDT 2011 CPT-41193 Venipuncture Draw Fee 08:32:05 STABILIZER OPERATOR CPT-OV Office Visit 18:19:06 CDT
--- OUTSIDE RECORDS SUMMARY | 2020-01-18 13:58 | XMS REPORT | Clinical Summary ---
Author Author Admin, Mitch Leon Organization [facility] [employer] Address Unknown Phone Unavailable Allergies, Adverse Reactions, [...] TAKE 1 TABLET DAILY SITAGLIPT IN PHOSPHATE [id number] Active Maria Rivas RN Active INVOKANA TABS 100MG TAKE 1 TABLET DAILY CANAGLIFL OZIN 94949936526 Active Maria Rivas RN Active AMLODIPINE BESYLATE 5 MG ORAL TABLET 1 tablet by mouth daily 201 05/19/02 AMLODIPINE BESYLATE 15415870197 No Longer Active Maria Briones Active WARFARIN TABS 1MG TAKE 2 TABLETS (2 MG) DAILY WITH THE 5 MG TABLET TO EQUAL 7 MG DAILY WARFARIN SODIUM 36174574973 Active Maria Briones Active WARFARIN SODIUM 5 MG TABS TAKE 1 TABLET DAILY W ARFARIN SODIUM 21234726099 Active Allison Anthony APRN-C Active KEFLEX 500 MG ORAL CAPSULE 1 capsule by mouth three times da rocky x10 days CEPHALEXIN 78010432916 No Longer Active Maria landaverde RN Active METOPROLOL TARTRATE TABS 50MG TAKE 1 TABLET TWICE A DAY ([facility]) METOPROLOL TARTRATE 74901038078 Active Maria Briones Active DOXAZOSIN MESYLATE 2 MG ORAL TABLET 1 po q day for pr ostate and blood pressure DOXAZOSIN MESYLATE 23036705711 Active Mitch Urbina DO Active LOSARTAN TABS 100MG TAKE 1 TABLET DAILY FOR BLOOD PRESSURE LOSARTAN POTASSIUM 62231654543 Active Maria Rivas RN Active FLUTICASONE PROPIONATE 50 MCG/ACT NASAL SUSPENSION 1 s pray each nostril twice daily for 1 week, then once daily FLUTICASONE ND OPIONATE 00460158277 Active 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 PREDNISONE 20 MG ORAL TABLET 2 tabs daily for 3 days 1 tab d aily for 3 days PREDNISONE 99591828099 No Longer Active 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 MINOXIDIL 2.5 MG ORAL TABLET 1 tablet twice daily for high b lood pressure MINOXIDIL 50919618646 Active Mitch Urbina DO Ac tive METFORMIN HCL ER 500 MG ORAL TABLET EXTENDED RELEASE 2 4 HOUR 2 tablets by mouth twice daily METFORMIN HCL 66308570904 Active Mitch Urbina DO Active GLIMEPIRIDE 4 MG ORAL TABLET 1 tablet by mouth twice daily f or diabetes GLIMEPIRIDE 62359653369 Active Mitch Urbina DO Active GLIMEPIRIDE 2 MG ORAL TABLET 1 po BID GLIMEPI RIDE 18676326402 No Longer Active Mitch Urbina DO Active PROVIGIL 200 MG ORAL TABLET 1/2 tab po q day MODA FINIL 82466427922 Active Maria Rivas RN Active FAMOTIDINE 20 MG ORAL TABLET by mouth twice a day 2017 FAMOTIDINE 05980266568 No Longer Active Mitch Urbina DO Active COLCRYS 0.6 MG ORAL TABLET 1 tab qid prn gout C OLCHICINE 57501964802 No Longer Active Mitch Urbina DO Active KEFLEX 500 MG ORAL CAPSULE 1 po qid CEPHALEXI N 41313428227 No Longer Active Mitch Urbina DO Active AMLODIPINE BESYLATE 5 MG ORAL TABLET 1 tablet by mouth daily 201 01/20/04 AMLODIPINE BESYLATE 74216871091 No Longer Active Joe fulton APRN Active MITIGARE 0.6 MG ORAL CAPSULE 2 capsules at onset of go ut pain, then take one capsule at 1 hour if symptoms persist. COLCHICINE 59 133285128 Active Mitch Urbina DO Active MECLIZINE HCL 25 MG ORAL TABLET 1 po tid 3 days, then 1/2 ta b tid 3 days MECLIZINE HCL 21923315826 No Longer Active Corey SEGURA Active ALLOPURINOL 300 MG ORAL TABLET Take 1 tablet by mouth daily 2012 ALLOPURINOL 98261575249 No Longer Active Corey SEGURA Active CLONIDINE HCL 0.1 MG ORAL TABLET 1 po bid 7 days, then 1/2 t ab po bid 7 days CLONIDINE HCL 00882634070 No Longer Active Corey SEGURA Active COUMADIN 4 MG ORAL TABLET 1 tablet daily WARFAR IN SODIUM 62529009069 No Longer Active Corey SEGURA Active POLYTRIM 31639-2.1 UNIT/ML-% OPHTHALMIC SOLUTION 1 rui p in affected eye every 3 hours while awake x 7 days POLYMYXIN B-TRIMETHOP RIM 18115534501 No Longer Active Corey SEGURA Active LOSARTAN POTASSIUM-HCTZ 100-12.5 MG ORAL TABLET 1 by m outh daily for high blood pressure LOSARTAN POTASSIUM-HCTZ 09955020116 No Longer A ctive Mitch Urbina DO Active LISINOPRIL-HYDROCHLOROTHIAZIDE 20-12.5 MG ORAL TABLET 1 tab by m outh daily LISINOPRIL-HYDROCHLOROTHIAZIDE 89063744363 No Longer Active Mitch Urbina DO Active LISINOPRIL 20 MG ORAL TABLET 1 tab po at HS LIS INOPRIL 70362383922 No Longer Active Mitch Urbina DO Active COUMADIN 5 MG ORAL TABLET 1 by mouth every other day 2 WARFARIN SODIUM 93479865974 No Longer Active Mitch Urbina DO Active COUMADIN 6 MG ORAL TABLET 1 by mouth every other day 2 WARFARIN SODIUM 61879021959 No Longer Active Mitch Urbina DO Active SIMVASTATIN 40 MG ORAL TABLET 1 tab daily at bedtime SIMVASTATIN 80701534190 Active Maria Rivas RN Active SIMVASTATIN 20 MG ORAL TABLET 1 tab daily at bedtime 2 SIMVASTATIN 84590950620 No Longer Active Mitch Urbina DO Active LOVENOX 100 MG/ML SUBCUTANEOUS SOLUTION One injection twice a da y ENOXAPARIN SODIUM 72975879716 No Longer Active Carmine Yusuf MD Active JANUVIA 100 MG ORAL TABLET 1/2 by mouth every day 2011 SITAGLIPTIN PHOSPHATE 95480675868 No Longer Active Bijal Segal RN Acti ve METFORMIN HCL 500 MG ORAL TABLET 2 by mouth twice daily METFORMIN HCL 86249477141 No Longer Active Renee Oconnor LPN Active COLCRYS 0.6 MG ORAL TABLET 1 po q 6 hours prn gout pain COLCHICINE 22030537905 No Longer Active Camila Reese Active LISINOPRIL 5 MG ORAL TABLET 1 by mouth every day 11/17 LISINOPRIL 75685968513 No Longer Active Nguyen Perez Active KLOR-CON 20 MEQ ORAL PACKET Take one by mouth daily 20 09/10/08 POTASSIUM CHLORIDE 93105056893 No Longer Active Nguyen Perez Active FUROSEMIDE 40 MG ORAL TABLET 1 by mouth daily F UROSEMIDE 63140519369 No Longer Active Nguyen Perez Active PROVIGIL 100 MG ORAL TABLET Take one by mouth daily 20 08/20/04 MODAFINIL 93954261774 No Longer Active Mitch Urbina DO Active BACTRIM DS 800-160 MG ORAL TABLET 1 tab by mouth twice daily 201 10/19/09 TRIMETHOPRIM-SULFAMETHOXAZOLE 29713576941 No Longer Active C alberto Hays MD Active ADULT ASPIRIN LOW STRENGTH 81 MG ORAL TABLET DISINTEGR ATING 1 by mouth every daily ASPIRIN 04716161171 Active Mitch Urbina DO Ac tive BACTRIM DS 800-160 MG ORAL TABLET 1 tab by mouth twice daily 201 10/19/09 BACTRIM DS 800-160 MG ORAL TABLET 260281 TRIMETHOPRIM-SULFAMETHOXAZOLE Inactive PROVIGIL 100 MG ORAL TABLET Take one by mouth daily 08/20/04 PROVIGIL 100 MG ORAL TABLET 256581 MODAFINIL Inactive FUROSEMIDE 40 MG ORAL TABLET 1 by mouth daily FUROSEMIDE 40 MG ORAL TABLET 951119 FUROSEMIDE Inactive KLOR-CON 20 MEQ ORAL PACKET Take one by mouth daily 09/10/08 KLOR- CON 20 MEQ ORAL PACKET 4962006 POTASSIUM CHLORIDE Inactive LISINOPRIL 5 MG ORAL TABLET 1 by mouth every day 11/17 LISINOPRIL 5 MG ORAL TABLET 488810 LISINOPRIL Inactive COLCRYS 0.6 MG ORAL TABLET 1 po q 6 hours prn gout pain COLCRYS 0.6 MG ORAL TABLET 873313 COLCHICINE Inactive JANUVIA 100 MG ORAL TABLET 1/2 by mouth every day 2011 JANUVIA 100 MG ORAL TABLET SITAGLIPTIN PHOSPHATE Inactive SIMVASTATIN 20 MG ORAL TABLET 1 tab daily at bedtime 2 SIMVASTATIN 20 MG ORAL TABLET 791760 SIMVASTATIN Inactive COUMADIN 6 MG ORAL TABLET 1 by mouth every other day 2 COUMADIN 6 MG ORAL TABLET 741012 WARFARIN SODIUM Inactive COUMADIN 5 MG ORAL TABLET 1 by mouth every other day 2 COUMADIN 5 MG ORAL TABLET 361021 WARFARIN SODIUM Inactive LISINOPRIL 20 MG ORAL TABLET 1 tab po at HS LISINOPRIL 20 MG ORAL TABLET 769818 LISINOPRIL Inactive LISINOPRIL-HYDROCHLOROTHIAZIDE 20-12.5 MG ORAL TABLET 1 tab by m outh daily LISINOPRIL-HYDROCHLOROTHIAZIDE 20-12.5 MG ORAL TABLET 116184 LISINOPRIL-HYDROCHLOROTHIAZIDE Inactive POLYTRIM 98480-8.1 UNIT/ML-% OPHTHALMIC SOLUTION 1 rui p in affected eye every 3 hours while awake x 7 days POLYTRIM 1000 0-0.1 UNIT/ML-% OPHTHALMIC SOLUTION 985436 POLYMYXIN B-TRIMETHOPRIM Inactive COUMADIN 4 MG ORAL TABLET 1 tablet daily COUMADIN 4 MG ORAL TABLET 386068 WARFARIN SODIUM Inactive CLONIDINE HCL 0.1 MG ORAL TABLET 1 po bid 7 days, then 1/2 t ab po bid 7 days CLONIDINE HCL 0.1 MG ORAL TABLET 819986 CLONIDIN E HCL Inactive ALLOPURINOL 300 MG ORAL TABLET Take 1 tablet by mouth daily 2012 ALLOPURINOL 300 MG ORAL TABLET 084921 ALLOPURINOL I nactive MECLIZINE HCL 25 MG ORAL TABLET 1 po tid 3 days, then 1/2 ta b tid 3 days MECLIZINE HCL 25 MG ORAL TABLET 818409 MECLIZINE HCL Inactive AMLODIPINE BESYLATE 5 MG ORAL TABLET 1 tablet by mouth daily 201 01/20/04 AMLODIPINE BESYLATE 5 MG ORAL TABLET 021848 AMLODIPINE BESYLATE Inactive KEFLEX 500 MG ORAL CAPSULE 1 po qid K EFLEX 500 MG ORAL CAPSULE 543863 CEPHALEXIN Inactive COLCRYS 0.6 MG ORAL TABLET 1 tab qid prn gout COLCRYS 0.6 MG ORAL TABLET 435294 COLCHICINE Inactive FAMOTIDINE 20 MG ORAL TABLET by mouth twice a day 2017 FAMOTIDINE 20 MG ORAL TABLET 834915 FAMOTIDINE Inactive GLIMEPIRIDE 2 MG ORAL TABLET 1 po BID GLIMEPIRIDE 2 MG ORAL TABLET 274020 GLIMEPIRIDE Inactive AMLODIPINE BESYLATE 5 MG ORAL TABLET 1 tablet by mouth daily 201 05/19/02 AMLODIPINE BESYLATE 5 MG ORAL TABLET 968719 AMLODIPINE BESYLATE Inactive LOVENOX 100 MG/ML SUBCUTANEOUS SOLUTION One injection twice a da y LOVENOX 100 MG/ML SUBCUTANEOUS SOLUTION 626298 ENOXAPAR IN SODIUM Inactive PREDNISONE 20 MG ORAL TABLET 2 tabs daily for 3 days 1 tab d aily for 3 days PREDNISONE 20 MG ORAL TABLET 990822 PREDNISONE Inactive KEFLEX 500 MG ORAL CAPSULE 1 capsule by mouth three times da rocky x10 days KEFLEX 500 MG ORAL CAPSULE 622014 CEPHALEXIN I nactive Advance Directives Directive Description [...] - Chem istry sodium, serum 138 mmol/L 911-020 2070/11/07 potassium, serum 4.5 mmol/L 3.5-5.2 chloride, serum [...] Panel - Chemistry sodium, serum 140 mmol/L 097-453 8694/11/01 carbon dioxide, venous blood 28.6 mmol/L 21.0-32 [...] mg/dL Encounters Code Encounter Date Provider Facility CPT-23898 [id number] Vst-Est Level IV 16:21:22 CDT Bru robinson [facility] CPT-85732 Level 3 Est. Patient 15:18:36 CDT Becky anderson [facility] CPT-21229 58687-Otr Vst-Est Level IV 10:06:35 CDT Bru robinson [facility] CPT-77029 67931-Sbd Vst-Est Level IV 10:52:00 DEVELOPER EVANGELIST Bru robinson [facility] CPT-99923 Level 3 Est. Patient 18:25:53 CDT Mitch luis [facility] CPT-59885 Level 3 Est. Patient 19:43:34 CDT Mitch luis [facility] CPT-57812 Level 4 Est. Patient 09:30:18 CDT Mitch luis [facility] CPT-46280 Level 3 Est. Patient 15:10:14 CDT Joe kamara [facility] CPT-81133 Level 3 Est. Patient 15:03:46 CDT Devonjustincarlitos kamara [facility] CPT-77158 Level 3 Est. Patient 14:21:06 CDT Mitch [facility] L e[facility]-94440 Level 3 Est. Patient 14:52:06 CDT Joe kamara [facility]-20439 Level 3 Est. Patient 09:34:30 DEVELOPER EVANGELIST Mitch W L ee [facility]-14961 Level 3 Est. Patient 09:37:15 CDT Mitch W L ee [facility] CPT-40738 Level 3 Est. Patient 17:01:00 DEVELOPER EVANGELIST Mitch W L ee [facility] CPT-23482 Level 3 Est. Patient 13:53:19 DEVELOPER EVANGELIST Mitch W L ee [facility] CPT-94551 Level 3 Est. Patient 19:19:37 DEVELOPER EVANGELIST Mitch W L ee [facility] CPT-57169 Level 3 Est. Patient 13:25:53 DEVELOPER EVANGELIST Tavo toure MD [facility]-34283 Level 3 Est. Patient 18:17:28 CDT Mitch W L ee [facility] CPT-97413 Level 3 Est. Patient 15:22:57 CDT Mitch W L ee [facility]-56509 Level 3 Est. Patient 18:21:50 CDT Mitch W L ee [facility]-47010 Level 3 Est. Patient 18:20:38 CDT Mitch W L ee [facility] CPT-54035 Level 3 Est. Patient 15:37:55 CDT Mitch W L ee [facility] CPT-54442 Level 2 Est. Patient 15:54:44 CDT Carmine benton MD [facility]-73548 Level 3 Est. Patient 21:46:01 DEVELOPER EVANGELIST Mitch luis [facility] CPT-44126 Level 3 Est. Patient 22:15:50 CDT Mitch luis DO [facility] CPT-68889 Level 3 Est. Patient 10:48:15 CDT Mitch luis DO [facility] CPT-52658 Level 3 Est. Patient 23:20:57 CDT Tavo toure MD [facility] CPT-67645 Level 3 Est. Patient 16:26:13 CDT Mitch luis [facility] Procedures Code Procedure Name Date Entry Date Standard Desc ription CPT-14658 Venipuncture Draw Fee 14:46:55 DEVELOPER EVANGELIST CPT-07972 Venipuncture Draw Fee 08:26:21 CDT CPT-10463 Venous Duplex Left Leg XRAY USE ONLY 10:43:10 CDT CPT-49734 Venipuncture Draw Fee 17:04:55 CDT CPT-56051 Venipuncture Draw Fee 17:20:50 CDT CPT-87591 Venipuncture Draw Fee 18:00:48 CDT CPT-22957 Venipuncture Draw Fee 14:56:20 CDT CPT-JTINJ Asp/Joint Injection 18:47:02 CDT CPT-90801 Venipuncture Draw Fee 09:26:17 CDT CPT-59946 PT/INR - LAB USE ONLY 13:32:49 DEVELOPER EVANGELIST CPT-03591 Venipuncture Draw Fee 13:32:49 DEVELOPER EVANGELIST CPT-24977 PT/INR - LAB USE ONLY 10:34:49 DEVELOPER EVANGELIST CPT-52633 Venipuncture Draw Fee 10:34:48 DEVELOPER EVANGELIST CPT-57434 PT/INR - LAB USE ONLY 09:22:03 DEVELOPER EVANGELIST CPT-83930 Venipuncture Draw Fee 09:22:02 DEVELOPER EVANGELIST CPT-14041 Hemoccult IFOBT - LAB USE ONLY 10:27:22 CDT CPT-33631 Venipuncture Draw Fee 08:27:08 CDT CPT-14629 Liver Profile - LAB USE ONLY 08:27:07 CDT 2 CPT-07728 Microalbumin - LAB USE ONLY 08:27:07 CDT 20 25/05/09 CPT-46900 PT/INR - LAB USE ONLY 08:27:07 CDT CPT-49639 HGBA1C - LAB USE ONLY 08:27:07 CDT CPT-50217 CBC - LAB USE ONLY 08:27:07 CDT CPT-27617 Venipuncture Draw Fee 11:09:14 CDT CPT-08499 Venipuncture Draw Fee 08:32:21 DEVELOPER EVANGELIST CPT-29436 Venipuncture Draw Fee 09:38:56 DEVELOPER EVANGELIST CPT-56029 No Charge Offi Visit 21:36:07 CDT 1 CPT-27080 Venipuncture Draw Fee 10:13:28 DEVELOPER EVANGELIST CPT-78651 Venipuncture Draw Fee 08:31:11 CDT CPT-30192 Aspir/Inject Med Joint 18:17:28 CDT CPT-12436 Venipuncture Draw Fee 10:13:30 CDT CPT-48371 Venipuncture Draw Fee 08:31:43 DEVELOPER EVANGELIST CPT-JTINJ Joint Injection 18:34:50 CDT CPT-36887 Knee 3V 12:25:09 CDT CPT-00979 Venipuncture Draw Fee 12:15:57 CDT CPT-060 Medical Surveillance Exam 21:31:43 CDT 2011 CPT-61544 Venipuncture Draw Fee 08:32:05 DEVELOPER EVANGELIST CPT-OV Office Visit 18:19:06 CDT
--- OUTSIDE RECORDS SUMMARY | 2020-01-18 13:59 | XMS REPORT | Clinical Summary ---
Author Author Admin, Mitch Leon Organization [facility] [employer] Address Unknown Phone Unavailable Allergies, Adverse Reactions, [...] anticoagulant s HEALTH MAINTENANCE EXAM V70.0 Active iMtch Meraz DO Routine general medical examination at [...] Mitch Urbina DO UNSPECIFIED ANEMIA ICD-285.9 Inactive Mtich luis DO Malaise and fatigue ICD-780.79 Inactive [...] TAKE 1 TABLET DAILY SITAGLIPT IN PHOSPHATE 59359176873 Active Maria Rivas RN Active INVOKANA TABS 100MG TAKE 1 TABLET DAILY CANAGLIFL OZIN 44292118514 Active Maria Rivas RN Active AMLODIPINE BESYLATE 5 MG ORAL TABLET 1 tablet by mouth daily 201 05/19/02 AMLODIPINE BESYLATE 29845943376 No Longer Active Maria Briones Active WARFARIN TABS 1MG TAKE 2 TABLETS (2 MG) DAILY WITH THE 5 MG TABLET TO EQUAL 7 MG DAILY WARFARIN SODIUM 22036579941 Active Maria Briones Active WARFARIN SODIUM 5 MG TABS TAKE 1 TABLET DAILY W ARFARIN SODIUM 32992146257 Active Allison Anthony APRN-C Active KEFLEX 500 MG ORAL CAPSULE 1 capsule by mouth three times da rocky x10 days CEPHALEXIN 27333281693 No Longer Active Maria landaverde RN Active METOPROLOL TARTRATE TABS 50MG TAKE 1 TABLET TWICE A DAY ([facility] WORK) METOPROLOL TARTRATE 80801010835 Active Maria Briones Active DOXAZOSIN MESYLATE 2 MG ORAL TABLET 1 po q day for pr ostate and blood pressure DOXAZOSIN MESYLATE 00411362217 Active Mitch Urbina DO Active LOSARTAN TABS 100MG TAKE 1 TABLET DAILY FOR BLOOD PRESSURE LOSARTAN POTASSIUM 33030921724 Active Maria Rivas RN Active FLUTICASONE PROPIONATE 50 MCG/ACT NASAL SUSPENSION 1 s pray each nostril twice daily for 1 week, then once daily FLUTICASONE AZ OPIONATE 18366774458 Active Becky Sell POWER SYSTEM DISPATCHER Active PREDNISONE 20 MG ORAL TABLET 2 tabs daily for 3 days 1 tab d aily for 3 days PREDNISONE 75550366655 No Longer Active Becky Sell POWER SYSTEM DISPATCHER Active MINOXIDIL 2.5 MG ORAL TABLET 1 tablet twice daily for high b lood pressure MINOXIDIL 74716423920 Active Mitch Urbina DO Ac tive METFORMIN HCL ER 500 MG ORAL TABLET EXTENDED RELEASE 2 4 HOUR 2 tablets by mouth twice daily METFORMIN HCL 36776421120 Active Mitch Urbina DO Active GLIMEPIRIDE 4 MG ORAL TABLET 1 tablet by mouth twice daily f or diabetes GLIMEPIRIDE 69033857234 Active Mitch Urbina DO Active GLIMEPIRIDE 2 MG ORAL TABLET 1 po BID GLIMEPI RIDE 21894991654 No Longer Active Mitch Urbina DO Active PROVIGIL 200 MG ORAL TABLET 1/2 tab po q day MODA FINIL 65161376808 Active Marai Rivas RN Active FAMOTIDINE 20 MG ORAL TABLET by mouth twice a day 2017 FAMOTIDINE 08804023790 No Longer Active Mitch Urbina DO Active COLCRYS 0.6 MG ORAL TABLET 1 tab qid prn gout C OLCHICINE 82296359225 No Longer Active Mitch Urbina DO Active KEFLEX 500 MG ORAL CAPSULE 1 po qid CEPHALEXI N 61625869446 No Longer Active Mitch Urbina DO Active AMLODIPINE BESYLATE 5 MG ORAL TABLET 1 tablet by mouth daily 201 01/20/04 AMLODIPINE BESYLATE 80704307835 No Longer Active Joe fulton APRN Active MITIGARE 0.6 MG ORAL CAPSULE 2 capsules at onset of go ut pain, then take one capsule at 1 hour if symptoms persist. COLCHICINE 59 989687234 Active Mitch Urbina DO Active MECLIZINE HCL 25 MG ORAL TABLET 1 po tid 3 days, then 1/2 ta b tid 3 days MECLIZINE HCL 83792826594 No Longer Active Corey SEGURA Active ALLOPURINOL 300 MG ORAL TABLET Take 1 tablet by mouth daily 2012 ALLOPURINOL 25492827077 No Longer Active Corey SEGURA Active CLONIDINE HCL 0.1 MG ORAL TABLET 1 po bid 7 days, then 1/2 t ab po bid 7 days CLONIDINE HCL 09505505012 No Longer Active Corey SEGURA Active COUMADIN 4 MG ORAL TABLET 1 tablet daily WARFAR IN SODIUM 35193126119 No Longer Active Corey SEGURA Active POLYTRIM 37631-5.1 UNIT/ML-% OPHTHALMIC SOLUTION 1 rui p in affected eye every 3 hours while awake x 7 days POLYMYXIN B-TRIMETHOP RIM 79351425353 No Longer Active Corey SEGURA Active LOSARTAN POTASSIUM-HCTZ 100-12.5 MG ORAL TABLET 1 by m outh daily for high blood pressure LOSARTAN POTASSIUM-HCTZ 49399751850 No Longer A ctive Mitch Urbina DO Active LISINOPRIL-HYDROCHLOROTHIAZIDE 20-12.5 MG ORAL TABLET 1 tab by m outh daily LISINOPRIL-HYDROCHLOROTHIAZIDE 65910069304 No Longer Active Mitch Urbina DO Active LISINOPRIL 20 MG ORAL TABLET 1 tab po at HS LIS INOPRIL 51204474347 No Longer Active Mitch Urbina DO Active COUMADIN 5 MG ORAL TABLET 1 by mouth every other day 2 WARFARIN SODIUM 76731610125 No Longer Active Mitch Urbina DO Active COUMADIN 6 MG ORAL TABLET 1 by mouth every other day 2 WARFARIN SODIUM 88747952003 No Longer Active Mitch Urbina DO Active SIMVASTATIN 40 MG ORAL TABLET 1 tab daily at bedtime SIMVASTATIN 64842963366 Active Maria Rivas RN Active SIMVASTATIN 20 MG ORAL TABLET 1 tab daily at bedtime 2 SIMVASTATIN 45264178480 No Longer Active Mitch Urbina DO Active LOVENOX 100 MG/ML SUBCUTANEOUS SOLUTION One injection twice a da y ENOXAPARIN SODIUM 54200023819 No Longer Active Carmine Yusuf MD Active JANUVIA 100 MG ORAL TABLET 1/2 by mouth every day 2011 SITAGLIPTIN PHOSPHATE 51728070273 No Longer Active Bijal Segal RN Acti ve METFORMIN HCL 500 MG ORAL TABLET 2 by mouth twice daily METFORMIN HCL 86225504122 No Longer Active Renee Oconnor LPN Active COLCRYS 0.6 MG ORAL TABLET 1 po q 6 hours prn gout pain COLCHICINE 42345476161 No Longer Active Camila Reese Active LISINOPRIL 5 MG ORAL TABLET 1 by mouth every day 11/17 LISINOPRIL 33597997419 No Longer Active Nguyen Perez Active KLOR-CON 20 MEQ ORAL PACKET Take one by mouth daily 20 09/10/08 POTASSIUM CHLORIDE 98872109611 No Longer Active Nguyen Perez Active FUROSEMIDE 40 MG ORAL TABLET 1 by mouth daily F UROSEMIDE 28741971022 No Longer Active Nguyen Perez Active PROVIGIL 100 MG ORAL TABLET Take one by mouth daily 20 08/20/04 MODAFINIL 60360674566 No Longer Active Mitch Urbina DO Active BACTRIM DS 800-160 MG ORAL TABLET 1 tab by mouth twice daily 201 10/19/09 TRIMETHOPRIM-SULFAMETHOXAZOLE 82002250700 No Longer Active C alberto Hays MD Active ADULT ASPIRIN LOW STRENGTH 81 MG ORAL TABLET DISINTEGR ATING 1 by mouth every daily ASPIRIN 75650221657 Active Mitch Urbina DO Ac tive BACTRIM DS 800-160 MG ORAL TABLET 1 tab by mouth twice daily 201 10/19/09 BACTRIM DS 800-160 MG ORAL TABLET 368756 TRIMETHOPRIM-SULFAMETHOXAZOLE Inactive PROVIGIL 100 MG ORAL TABLET Take one by mouth daily 08/20/04 PROVIGIL 100 MG ORAL TABLET 763753 MODAFINIL Inactive FUROSEMIDE 40 MG ORAL TABLET 1 by mouth daily FUROSEMIDE 40 MG ORAL TABLET 091431 FUROSEMIDE Inactive KLOR-CON 20 MEQ ORAL PACKET Take one by mouth daily 09/10/08 KLOR- CON 20 MEQ ORAL PACKET 8078165 POTASSIUM CHLORIDE Inactive LISINOPRIL 5 MG ORAL TABLET 1 by mouth every day 11/17 LISINOPRIL 5 MG ORAL TABLET 250268 LISINOPRIL Inactive COLCRYS 0.6 MG ORAL TABLET 1 po q 6 hours prn gout pain COLCRYS 0.6 MG ORAL TABLET 774055 COLCHICINE Inactive JANUVIA 100 MG ORAL TABLET 1/2 by mouth every day 2011 JANUVIA 100 MG ORAL TABLET SITAGLIPTIN PHOSPHATE Inactive SIMVASTATIN 20 MG ORAL TABLET 1 tab daily at bedtime 2 SIMVASTATIN 20 MG ORAL TABLET 662533 SIMVASTATIN Inactive COUMADIN 6 MG ORAL TABLET 1 by mouth every other day 2 COUMADIN 6 MG ORAL TABLET 983561 WARFARIN SODIUM Inactive COUMADIN 5 MG ORAL TABLET 1 by mouth every other day 2 COUMADIN 5 MG ORAL TABLET 924384 WARFARIN SODIUM Inactive LISINOPRIL 20 MG ORAL TABLET 1 tab po at HS LISINOPRIL 20 MG ORAL TABLET 530048 LISINOPRIL Inactive LISINOPRIL-HYDROCHLOROTHIAZIDE 20-12.5 MG ORAL TABLET 1 tab by m outh daily LISINOPRIL-HYDROCHLOROTHIAZIDE 20-12.5 MG ORAL TABLET 071437 LISINOPRIL-HYDROCHLOROTHIAZIDE Inactive POLYTRIM 66659-3.1 UNIT/ML-% OPHTHALMIC SOLUTION 1 rui p in affected eye every 3 hours while awake x 7 days POLYTRIM 1000 0-0.1 UNIT/ML-% OPHTHALMIC SOLUTION 774354 POLYMYXIN B-TRIMETHOPRIM Inactive COUMADIN 4 MG ORAL TABLET 1 tablet daily COUMADIN 4 MG ORAL TABLET 290862 WARFARIN SODIUM Inactive CLONIDINE HCL 0.1 MG ORAL TABLET 1 po bid 7 days, then 1/2 t ab po bid 7 days CLONIDINE HCL 0.1 MG ORAL TABLET 863758 CLONIDIN E HCL Inactive ALLOPURINOL 300 MG ORAL TABLET Take 1 tablet by mouth daily 2012 ALLOPURINOL 300 MG ORAL TABLET 206947 ALLOPURINOL I nactive MECLIZINE HCL 25 MG ORAL TABLET 1 po tid 3 days, then 1/2 ta b tid 3 days MECLIZINE HCL 25 MG ORAL TABLET 657350 MECLIZINE HCL Inactive AMLODIPINE BESYLATE 5 MG ORAL TABLET 1 tablet by mouth daily 201 01/20/04 AMLODIPINE BESYLATE 5 MG ORAL TABLET 064793 AMLODIPINE BESYLATE Inactive KEFLEX 500 MG ORAL CAPSULE 1 po qid K EFLEX 500 MG ORAL CAPSULE 387310 CEPHALEXIN Inactive COLCRYS 0.6 MG ORAL TABLET 1 tab qid prn gout COLCRYS 0.6 MG ORAL TABLET 280132 COLCHICINE Inactive FAMOTIDINE 20 MG ORAL TABLET by mouth twice a day 2017 FAMOTIDINE 20 MG ORAL TABLET 165591 FAMOTIDINE Inactive GLIMEPIRIDE 2 MG ORAL TABLET 1 po BID GLIMEPIRIDE 2 MG ORAL TABLET 025155 GLIMEPIRIDE Inactive AMLODIPINE BESYLATE 5 MG ORAL TABLET 1 tablet by mouth daily 201 05/19/02 AMLODIPINE BESYLATE 5 MG ORAL TABLET 163545 AMLODIPINE BESYLATE Inactive LOVENOX 100 MG/ML SUBCUTANEOUS SOLUTION One injection twice a da y LOVENOX 100 MG/ML SUBCUTANEOUS SOLUTION 106415 ENOXAPAR IN SODIUM Inactive PREDNISONE 20 MG ORAL TABLET 2 tabs daily for 3 days 1 tab d aily for 3 days PREDNISONE 20 MG ORAL TABLET 772494 PREDNISONE Inactive KEFLEX 500 MG ORAL CAPSULE 1 capsule by mouth three times da rocky x10 days KEFLEX 500 MG ORAL CAPSULE 898153 CEPHALEXIN I nactive Advance Directives Directive Description [...] - Chem istry sodium, serum 138 mmol/L 920-466 5719/11/07 potassium, serum 4.5 mmol/L 3.5-5.2 chloride, serum [...] Panel - Chemistry sodium, serum 140 mmol/L 553-467 5580/11/01 carbon dioxide, venous blood 28.6 mmol/L 21.0-32 [...] mg/dL Encounters Code Encounter Date Provider Facility CPT-95529 [id number] Vst-Est Level IV 16:21:22 CDT Bru robinson [facility] CPT-37077 Level 3 Est. Patient 15:18:36 CDT Becky anderson [facility] CPT-57901 [id number] Vst-Est Level IV 10:06:35 CDT Bru robinson [facility] CPT-29181 [id number] Vst-Est Level IV 10:52:00 PITCH WORKER Bru robinson [facility] CPT-94580 Level 3 Est. Patient 18:25:53 CDT Mitch luis [facility] CPT-17718 Level 3 Est. Patient 19:43:34 CDT Mitch luis [facility] CPT-33245 Level 4 Est. Patient 09:30:18 CDT Mitch luis [facility] CPT-95810 Level 3 Est. Patient 15:10:14 CDT Joe kamara [facility] CPT-90374 Level 3 Est. Patient 15:03:46 CDT Devonjustincarlitos kamara [facility] CPT-16354 Level 3 Est. Patient 14:21:06 CDT Mitch [facility] L e[facility]-71922 Level 3 Est. Patient 14:52:06 CDT Joe kamara [facility]-41091 Level 3 Est. Patient 09:34:30 PITCH WORKER Mitch W L ee [facility]-43767 Level 3 Est. Patient 09:37:15 CDT Mitch W L ee [facility] CPT-93266 Level 3 Est. Patient 17:01:00 PITCH WORKER Mitch W L ee [facility] CPT-33805 Level 3 Est. Patient 13:53:19 PITCH WORKER Mitch W L ee [facility] CPT-34725 Level 3 Est. Patient 19:19:37 PITCH WORKER Mitch W L ee [facility] CPT-92482 Level 3 Est. Patient 13:25:53 PITCH WORKER Tavo toure MD [facility]-02948 Level 3 Est. Patient 18:17:28 CDT Mitch W L ee [facility] CPT-27474 Level 3 Est. Patient 15:22:57 CDT Mitch W L ee [facility]-46166 Level 3 Est. Patient 18:21:50 CDT Mitch W L ee [facility]-18716 Level 3 Est. Patient 18:20:38 CDT Mitch W L ee [facility] CPT-24193 Level 3 Est. Patient 15:37:55 CDT Mitch W L ee [facility] CPT-65009 Level 2 Est. Patient 15:54:44 CDT Carmine benton MD [facility]-51613 Level 3 Est. Patient 21:46:01 PITCH WORKER Mitch luis [facility] CPT-88390 Level 3 Est. Patient 22:15:50 CDT Mitch luis DO [facility] CPT-16024 Level 3 Est. Patient 10:48:15 CDT Mitch luis DO [facility] CPT-21021 Level 3 Est. Patient 23:20:57 CDT Tavo toure MD [facility] CPT-16550 Level 3 Est. Patient 16:26:13 CDT Mitch luis [facility] Procedures Code Procedure Name Date Entry Date Standard Desc ription CPT-43530 Venipuncture Draw Fee 14:46:55 PITCH WORKER CPT-23144 Venipuncture Draw Fee 08:26:21 CDT CPT-39977 Venous Duplex Left Leg XRAY USE ONLY 10:43:10 CDT CPT-96729 Venipuncture Draw Fee 17:04:55 CDT CPT-88455 Venipuncture Draw Fee 17:20:50 CDT CPT-89470 Venipuncture Draw Fee 18:00:48 CDT CPT-80095 Venipuncture Draw Fee 14:56:20 CDT CPT-JTINJ Asp/Joint Injection 18:47:02 CDT CPT-55521 Venipuncture Draw Fee 09:26:17 CDT CPT-58652 PT/INR - LAB USE ONLY 13:32:49 PITCH WORKER CPT-81905 Venipuncture Draw Fee 13:32:49 PITCH WORKER CPT-32995 PT/INR - LAB USE ONLY 10:34:49 PITCH WORKER CPT-90152 Venipuncture Draw Fee 10:34:48 PITCH WORKER CPT-24907 PT/INR - LAB USE ONLY 09:22:03 PITCH WORKER CPT-17789 Venipuncture Draw Fee 09:22:02 PITCH WORKER CPT-89468 Hemoccult IFOBT - LAB USE ONLY 10:27:22 CDT CPT-48395 Venipuncture Draw Fee 08:27:08 CDT CPT-87922 Liver Profile - LAB USE ONLY 08:27:07 CDT 2 CPT-46509 Microalbumin - LAB USE ONLY 08:27:07 CDT 20 25/05/09 CPT-00896 PT/INR - LAB USE ONLY 08:27:07 CDT CPT-77877 HGBA1C - LAB USE ONLY 08:27:07 CDT CPT-38685 CBC - LAB USE ONLY 08:27:07 CDT CPT-64671 Venipuncture Draw Fee 11:09:14 CDT CPT-37848 Venipuncture Draw Fee 08:32:21 PITCH WORKER CPT-27638 Venipuncture Draw Fee 09:38:56 PITCH WORKER CPT-59118 No Charge Offi Visit 21:36:07 CDT 1 CPT-55106 Venipuncture Draw Fee 10:13:28 PITCH WORKER CPT-90169 Venipuncture Draw Fee 08:31:11 CDT CPT-61434 Aspir/Inject Med Joint 18:17:28 CDT CPT-30362 Venipuncture Draw Fee 10:13:30 CDT CPT-25798 Venipuncture Draw Fee 08:31:43 PITCH WORKER CPT-JTINJ Joint Injection 18:34:50 CDT CPT-25778 Knee 3V 12:25:09 CDT CPT-15908 Venipuncture Draw Fee 12:15:57 CDT CPT-060 Medical Surveillance Exam 21:31:43 CDT 2011 CPT-49359 Venipuncture Draw Fee 08:32:05 PITCH WORKER CPT-OV Office Visit 18:19:06 CDT
--- OUTSIDE RECORDS SUMMARY | 2020-01-18 13:59 | XMS REPORT | Clinical Summary ---
Author Author Admin, Mitch Leon Organization [facility] [employer] Address Unknown Phone Unavailable Allergies, Adverse Reactions, [...] of vessel, chitimacha or graft EDEMA 782.3 Resolved Mitch Urbina [...] TAKE 1 TABLET DAILY SITAGLIPT IN PHOSPHATE 13927318312 Active Maria Rivas RN Active INVOKANA TABS 100MG TAKE 1 TABLET DAILY CANAGLIFL OZIN 73742889757 Active Maria Rivas RN Active AMLODIPINE BESYLATE 5 MG ORAL TABLET 1 tablet by mouth daily 201 05/19/02 AMLODIPINE BESYLATE 17073088945 No Longer Active Maria Briones Active WARFARIN TABS 1MG TAKE 2 TABLETS (2 MG) DAILY WITH THE 5 MG TABLET TO EQUAL 7 MG DAILY WARFARIN SODIUM 76302523115 Active Maria Briones Active WARFARIN SODIUM 5 MG TABS TAKE 1 TABLET DAILY W ARFARIN SODIUM 96896031786 Active Allison Anthony APRN-C Active KEFLEX 500 MG ORAL CAPSULE 1 capsule by mouth three times da rocky x10 days CEPHALEXIN 53122054728 No Longer Active Maria landaverde RN Active METOPROLOL TARTRATE TABS 50MG TAKE 1 TABLET TWICE A DAY ([facility]) METOPROLOL TARTRATE 12475985965 Active Maria Briones Active DOXAZOSIN MESYLATE 2 MG ORAL TABLET 1 po q day for pr ostate and blood pressure DOXAZOSIN MESYLATE 37897002691 Active Mitch Urbina DO Active LOSARTAN TABS 100MG TAKE 1 TABLET DAILY FOR BLOOD PRESSURE LOSARTAN POTASSIUM 78929051023 Active Maria Rivas RN Active FLUTICASONE PROPIONATE 50 MCG/ACT NASAL SUSPENSION 1 s pray each nostril twice daily for 1 week, then once daily FLUTICASONE ME OPIONATE 12104099126 Active Becky Sell CONFERENCE SERVICE COORDINATOR Active PREDNISONE 20 MG ORAL TABLET 2 tabs daily for 3 days 1 tab d aily for 3 days PREDNISONE 83783397853 No Longer Active Becky Sell CONFERENCE SERVICE COORDINATOR Active MINOXIDIL 2.5 MG ORAL TABLET 1 tablet twice daily for high b lood pressure MINOXIDIL 55021848860 Active Mitch Urbina DO Ac tive METFORMIN HCL ER 500 MG ORAL TABLET EXTENDED RELEASE 2 4 HOUR 2 tablets by mouth twice daily METFORMIN HCL 64876072542 Active Mitch Urbina DO Active GLIMEPIRIDE 4 MG ORAL TABLET 1 tablet by mouth twice daily f or diabetes GLIMEPIRIDE 85124008620 Active Mitch Urbina DO Active GLIMEPIRIDE 2 MG ORAL TABLET 1 po BID GLIMEPI RIDE 48933747870 No Longer Active Mitch Urbina DO Active PROVIGIL 200 MG ORAL TABLET 1/2 tab po q day MODA FINIL 44129381473 Active Maria Rivas RN Active FAMOTIDINE 20 MG ORAL TABLET by mouth twice a day 2017 FAMOTIDINE 36503959086 No Longer Active Mitch Urbina DO Active COLCRYS 0.6 MG ORAL TABLET 1 tab qid prn gout C OLCHICINE 49275501646 No Longer Active Mitch Urbina DO Active KEFLEX 500 MG ORAL CAPSULE 1 po qid CEPHALEXI N 44217948677 No Longer Active Mitch Urbina DO Active AMLODIPINE BESYLATE 5 MG ORAL TABLET 1 tablet by mouth daily 201 01/20/04 AMLODIPINE BESYLATE 87196175197 No Longer Active Joe fulton APRN Active MITIGARE 0.6 MG ORAL CAPSULE 2 capsules at onset of go ut pain, then take one capsule at 1 hour if symptoms persist. COLCHICINE 59 372022163 Active Mitch Urbina DO Active MECLIZINE HCL 25 MG ORAL TABLET 1 po tid 3 days, then 1/2 ta b tid 3 days MECLIZINE HCL 28550968518 No Longer Active Corey SEGURA Active ALLOPURINOL 300 MG ORAL TABLET Take 1 tablet by mouth daily 2012 ALLOPURINOL 29828783640 No Longer Active Corey SEGURA Active CLONIDINE HCL 0.1 MG ORAL TABLET 1 po bid 7 days, then 1/2 t ab po bid 7 days CLONIDINE HCL 00203091561 No Longer Active Corey SEGURA Active COUMADIN 4 MG ORAL TABLET 1 tablet daily WARFAR IN SODIUM 57007724218 No Longer Active Corey SEGURA Active POLYTRIM 89960-2.1 UNIT/ML-% OPHTHALMIC SOLUTION 1 rui p in affected eye every 3 hours while awake x 7 days POLYMYXIN B-TRIMETHOP RIM 40582602002 No Longer Active Corey SEGURA Active LOSARTAN POTASSIUM-HCTZ 100-12.5 MG ORAL TABLET 1 by m outh daily for high blood pressure LOSARTAN POTASSIUM-HCTZ 09481470514 No Longer A ctive Mitch Urbina DO Active LISINOPRIL-HYDROCHLOROTHIAZIDE 20-12.5 MG ORAL TABLET 1 tab by m outh daily LISINOPRIL-HYDROCHLOROTHIAZIDE 35719840674 No Longer Active Mitch Urbina DO Active LISINOPRIL 20 MG ORAL TABLET 1 tab po at HS LIS INOPRIL 44737313416 No Longer Active Mitch Urbina DO Active COUMADIN 5 MG ORAL TABLET 1 by mouth every other day 2 WARFARIN SODIUM 66068443035 No Longer Active Mitch Urbina DO Active COUMADIN 6 MG ORAL TABLET 1 by mouth every other day 2 WARFARIN SODIUM 43611424547 No Longer Active Mitch Urbina DO Active SIMVASTATIN 40 MG ORAL TABLET 1 tab daily at bedtime SIMVASTATIN 40064437787 Active Maria Rivas RN Active SIMVASTATIN 20 MG ORAL TABLET 1 tab daily at bedtime 2 SIMVASTATIN 94513148503 No Longer Active Mitch Urbina DO Active LOVENOX 100 MG/ML SUBCUTANEOUS SOLUTION One injection twice a da y ENOXAPARIN SODIUM 11337351167 No Longer Active Carmine Yusuf MD Active JANUVIA 100 MG ORAL TABLET 1/2 by mouth every day 2011 SITAGLIPTIN PHOSPHATE 44382262722 No Longer Active Bijal Segal RN Acti ve METFORMIN HCL 500 MG ORAL TABLET 2 by mouth twice daily METFORMIN HCL 19964562889 No Longer Active Renee Oconnor LPN Active COLCRYS 0.6 MG ORAL TABLET 1 po q 6 hours prn gout pain COLCHICINE 84798088812 No Longer Active Camila Reese Active LISINOPRIL 5 MG ORAL TABLET 1 by mouth every day 11/17 LISINOPRIL 02138281230 No Longer Active Nguyen Perez Active KLOR-CON 20 MEQ ORAL PACKET Take one by mouth daily 20 09/10/08 POTASSIUM CHLORIDE 96698421194 No Longer Active Nguyen Perez Active FUROSEMIDE 40 MG ORAL TABLET 1 by mouth daily F UROSEMIDE 76712834024 No Longer Active Nguyen Perez Active PROVIGIL 100 MG ORAL TABLET Take one by mouth daily 20 08/20/04 MODAFINIL 81059477720 No Longer Active Mitch Urbina DO Active BACTRIM DS 800-160 MG ORAL TABLET 1 tab by mouth twice daily 201 10/19/09 TRIMETHOPRIM-SULFAMETHOXAZOLE 04350586142 No Longer Active C alberto Hays MD Active ADULT ASPIRIN LOW STRENGTH 81 MG ORAL TABLET DISINTEGR ATING 1 by mouth every daily ASPIRIN 01370185959 Active Mitch Urbina DO Ac tive BACTRIM DS 800-160 MG ORAL TABLET 1 tab by mouth twice daily 201 10/19/09 BACTRIM DS 800-160 MG ORAL TABLET 367339 TRIMETHOPRIM-SULFAMETHOXAZOLE Inactive PROVIGIL 100 MG ORAL TABLET Take one by mouth daily 08/20/04 PROVIGIL 100 MG ORAL TABLET 314019 MODAFINIL Inactive FUROSEMIDE 40 MG ORAL TABLET 1 by mouth daily FUROSEMIDE 40 MG ORAL TABLET 794683 FUROSEMIDE Inactive KLOR-CON 20 MEQ ORAL PACKET Take one by mouth daily 09/10/08 KLOR- CON 20 MEQ ORAL PACKET 4344967 POTASSIUM CHLORIDE Inactive LISINOPRIL 5 MG ORAL TABLET 1 by mouth every day 11/17 LISINOPRIL 5 MG ORAL TABLET 002065 LISINOPRIL Inactive COLCRYS 0.6 MG ORAL TABLET 1 po q 6 hours prn gout pain COLCRYS 0.6 MG ORAL TABLET 820924 COLCHICINE Inactive JANUVIA 100 MG ORAL TABLET 1/2 by mouth every day 2011 JANUVIA 100 MG ORAL TABLET SITAGLIPTIN PHOSPHATE Inactive SIMVASTATIN 20 MG ORAL TABLET 1 tab daily at bedtime 2 SIMVASTATIN 20 MG ORAL TABLET 946257 SIMVASTATIN Inactive COUMADIN 6 MG ORAL TABLET 1 by mouth every other day 2 COUMADIN 6 MG ORAL TABLET 519717 WARFARIN SODIUM Inactive COUMADIN 5 MG ORAL TABLET 1 by mouth every other day 2 COUMADIN 5 MG ORAL TABLET 898192 WARFARIN SODIUM Inactive LISINOPRIL 20 MG ORAL TABLET 1 tab po at HS LISINOPRIL 20 MG ORAL TABLET 263590 LISINOPRIL Inactive LISINOPRIL-HYDROCHLOROTHIAZIDE 20-12.5 MG ORAL TABLET 1 tab by m outh daily LISINOPRIL-HYDROCHLOROTHIAZIDE 20-12.5 MG ORAL TABLET 876302 LISINOPRIL-HYDROCHLOROTHIAZIDE Inactive POLYTRIM 87145-8.1 UNIT/ML-% OPHTHALMIC SOLUTION 1 rui p in affected eye every 3 hours while awake x 7 days POLYTRIM 1000 0-0.1 UNIT/ML-% OPHTHALMIC SOLUTION 640814 POLYMYXIN B-TRIMETHOPRIM Inactive COUMADIN 4 MG ORAL TABLET 1 tablet daily COUMADIN 4 MG ORAL TABLET 154595 WARFARIN SODIUM Inactive CLONIDINE HCL 0.1 MG ORAL TABLET 1 po bid 7 days, then 1/2 t ab po bid 7 days CLONIDINE HCL 0.1 MG ORAL TABLET 481937 CLONIDIN E HCL Inactive ALLOPURINOL 300 MG ORAL TABLET Take 1 tablet by mouth daily 2012 ALLOPURINOL 300 MG ORAL TABLET 302113 ALLOPURINOL I nactive MECLIZINE HCL 25 MG ORAL TABLET 1 po tid 3 days, then 1/2 ta b tid 3 days MECLIZINE HCL 25 MG ORAL TABLET 698273 MECLIZINE HCL Inactive AMLODIPINE BESYLATE 5 MG ORAL TABLET 1 tablet by mouth daily 201 01/20/04 AMLODIPINE BESYLATE 5 MG ORAL TABLET 568421 AMLODIPINE BESYLATE Inactive KEFLEX 500 MG ORAL CAPSULE 1 po qid K EFLEX 500 MG ORAL CAPSULE 360502 CEPHALEXIN Inactive COLCRYS 0.6 MG ORAL TABLET 1 tab qid prn gout COLCRYS 0.6 MG ORAL TABLET 989295 COLCHICINE Inactive FAMOTIDINE 20 MG ORAL TABLET by mouth twice a day 2017 FAMOTIDINE 20 MG ORAL TABLET 290803 FAMOTIDINE Inactive GLIMEPIRIDE 2 MG ORAL TABLET 1 po BID GLIMEPIRIDE 2 MG ORAL TABLET 659648 GLIMEPIRIDE Inactive AMLODIPINE BESYLATE 5 MG ORAL TABLET 1 tablet by mouth daily 201 05/19/02 AMLODIPINE BESYLATE 5 MG ORAL TABLET 329210 AMLODIPINE BESYLATE Inactive LOVENOX 100 MG/ML SUBCUTANEOUS SOLUTION One injection twice a da y LOVENOX 100 MG/ML SUBCUTANEOUS SOLUTION 608681 ENOXAPAR IN SODIUM Inactive PREDNISONE 20 MG ORAL TABLET 2 tabs daily for 3 days 1 tab d aily for 3 days PREDNISONE 20 MG ORAL TABLET 774813 PREDNISONE Inactive KEFLEX 500 MG ORAL CAPSULE 1 capsule by mouth three times da rocky x10 days KEFLEX 500 MG ORAL CAPSULE 441731 CEPHALEXIN I nactive Advance Directives Directive Description [...] - Chem istry sodium, serum 138 mmol/L 788-947 0655/11/07 potassium, serum 4.5 mmol/L 3.5-5.2 chloride, serum [...] Panel - Chemistry sodium, serum 140 mmol/L 401-906 5030/11/01 carbon dioxide, venous blood 28.6 mmol/L 21.0-32 [...] mg/dL Encounters Code Encounter Date Provider Facility CPT-69915 [id number] Vst-Est Level IV 16:21:22 CDT Bru robinson [facility] CPT-53449 Level 3 Est. Patient 15:18:36 CDT [facility] CPT-76747 [id number] Vst-Est Level IV 10:06:35 CDT Bru robinson [facility] CPT-36483 [id number] Vst-Est Level IV 10:52:00 AVIATION MAINTENANCE TECHNICIAN Bru robinson [facility] CPT-57590 Level 3 Est. Patient 18:25:53 CDT Mitch luis [facility] CPT-01107 Level 3 Est. Patient 19:43:34 CDT Mitch luis [facility] CPT-85073 Level 4 Est. Patient 09:30:18 CDT Mitch luis [facility] CPT-64755 Level 3 Est. Patient 15:10:14 CDT [facility] CPT-10926 Level 3 Est. Patient 15:03:46 CDT [facility] CPT-33240 Level 3 Est. Patient 14:21:06 CDT Mitch [facility]rose L ee [facility] [place]-60883 Level 3 Est. Patient 14:52:06 CDT Joe kamara [facility]-41690 Level 3 Est. Patient 09:34:30 AVIATION MAINTENANCE TECHNICIAN Mitch W L ee [facility] [place]-54770 Level 3 Est. Patient 09:37:15 CDT Mitch W L ee [facility] CPT-98567 Level 3 Est. Patient 17:01:00 AVIATION MAINTENANCE TECHNICIAN Mitch W L ee [facility] CPT-72065 Level 3 Est. Patient 13:53:19 AVIATION MAINTENANCE TECHNICIAN Mitch W L ee [facility] CPT-46682 Level 3 Est. Patient 19:19:37 AVIATION MAINTENANCE TECHNICIAN Micth W L ee [facility] CPT-54135 Level 3 Est. Patient 13:25:53 AVIATION MAINTENANCE TECHNICIAN Tavo toure MD [facility]-46966 Level 3 Est. Patient 18:17:28 CDT Mitch W L ee [facility] CPT-48068 Level 3 Est. Patient 15:22:57 CDT Mitch W L ee [facility] [place]-79677 Level 3 Est. Patient 18:21:50 CDT Mitch W L ee [facility] [place]-89401 Level 3 Est. Patient 18:20:38 CDT Mitch W L ee [facility] CPT-14604 Level 3 Est. Patient 15:37:55 CDT Mitch W L ee [facility] CPT-90052 Level 2 Est. Patient 15:54:44 CDT Carmine benton MD [facility]-04324 Level 3 Est. Patient 21:46:01 AVIATION MAINTENANCE TECHNICIAN iMtch luis [facility] CPT-27107 Level 3 Est. Patient 22:15:50 CDT Mitch luis DO [facility] CPT-78613 Level 3 Est. Patient 10:48:15 CDT Mitch luis DO [facility] CPT-33378 Level 3 Est. Patient 23:20:57 CDT Tavo toure MD [facility] CPT-42670 Level 3 Est. Patient 16:26:13 CDT Mitch luis [facility] Procedures Code Procedure Name Date Entry Date Standard Desc ription CPT-96469 Venipuncture Draw Fee 14:46:55 AVIATION MAINTENANCE TECHNICIAN CPT-36793 Venipuncture Draw Fee 08:26:21 CDT CPT-30565 Venous Duplex Left Leg XRAY USE ONLY 10:43:10 CDT CPT-31757 Venipuncture Draw Fee 17:04:55 CDT CPT-23176 Venipuncture Draw Fee 17:20:50 CDT CPT-53713 Venipuncture Draw Fee 18:00:48 CDT CPT-70086 Venipuncture Draw Fee 14:56:20 CDT CPT-JTINJ Asp/Joint Injection 18:47:02 CDT CPT-89146 Venipuncture Draw Fee 09:26:17 CDT CPT-22959 PT/INR - LAB USE ONLY 13:32:49 AVIATION MAINTENANCE TECHNICIAN CPT-02388 Venipuncture Draw Fee 13:32:49 AVIATION MAINTENANCE TECHNICIAN CPT-77171 PT/INR - LAB USE ONLY 10:34:49 AVIATION MAINTENANCE TECHNICIAN CPT-50067 Venipuncture Draw Fee 10:34:48 AVIATION MAINTENANCE TECHNICIAN CPT-53522 PT/INR - LAB USE ONLY 09:22:03 AVIATION MAINTENANCE TECHNICIAN CPT-28569 Venipuncture Draw Fee 09:22:02 AVIATION MAINTENANCE TECHNICIAN CPT-31202 Hemoccult IFOBT - LAB USE ONLY 10:27:22 CDT CPT-50134 Venipuncture Draw Fee 08:27:08 CDT CPT-23469 Liver Profile - LAB USE ONLY 08:27:07 CDT 2 CPT-79967 Microalbumin - LAB USE ONLY 08:27:07 CDT 20 25/05/09 CPT-50634 PT/INR - LAB USE ONLY 08:27:07 CDT CPT-06467 HGBA1C - LAB USE ONLY 08:27:07 CDT CPT-80355 CBC - LAB USE ONLY 08:27:07 CDT CPT-64720 Venipuncture Draw Fee 11:09:14 CDT CPT-77984 Venipuncture Draw Fee 08:32:21 AVIATION MAINTENANCE TECHNICIAN CPT-54417 Venipuncture Draw Fee 09:38:56 AVIATION MAINTENANCE TECHNICIAN CPT-47327 No Charge Offi Visit 21:36:07 CDT 1 CPT-87343 Venipuncture Draw Fee 10:13:28 AVIATION MAINTENANCE TECHNICIAN CPT-91349 Venipuncture Draw Fee 08:31:11 CDT CPT-35574 Aspir/Inject Med Joint 18:17:28 CDT CPT-55323 Venipuncture Draw Fee 10:13:30 CDT CPT-44485 Venipuncture Draw Fee 08:31:43 AVIATION MAINTENANCE TECHNICIAN CPT-JTINJ Joint Injection 18:34:50 CDT CPT-47964 Knee 3V 12:25:09 CDT CPT-95596 Venipuncture Draw Fee 12:15:57 CDT CPT-060 Medical Surveillance Exam 21:31:43 CDT 2011 CPT-90245 Venipuncture Draw Fee 08:32:05 AVIATION MAINTENANCE TECHNICIAN CPT-OV Office Visit 18:19:06 CDT
[2020-01-18] MEDS ORDERED: MEPERIDINE (DEMEROL) INJ 50 MG/ML IVP ONE (14:00)
[2020-01-18] MEDS ORDERED: HYDROcodone/APAP 5 MG/325 MG (LORTAB) TAB PO PRN (14:00)
[2020-01-18] MEDS ORDERED: fentaNYL INJECTION 100 MCG/2 ML AMP IVP ONE (14:00)
[2020-01-18] MEDS ORDERED: ONDANSETRON 4 MG/2 ML (SDV) Z0FRAN IVP PRN (14:00)
[2020-01-18] MEDS ORDERED: morphine INJ 10 MG/ML 1ML (SYR OR VIAL) IVP ONE (14:00)
--- OUTSIDE RECORDS SUMMARY | 2020-01-18 14:00 | XMS REPORT | Clinical Summary ---
Author Author Admin, Mitch Leon Organization [facility] Address Unknown Phone Unavailable Allergies, [...] Coronary atherosclerosis of unspecified type of vessel, [place] or graft EDEMA 782.3 Resolved Mitch Urbina [...] TAKE 1 TABLET DAILY SITAGLIPT IN PHOSPHATE 47251127084 Active Maria Rivas RN Active INVOKANA TABS 100MG TAKE 1 TABLET DAILY CANAGLIFL OZIN 86253749204 Active Maria Rivas RN Active AMLODIPINE BESYLATE 5 MG ORAL TABLET 1 tablet by mouth daily 201 05/19/02 AMLODIPINE BESYLATE 18301003658 No Longer Active Maria Briones Active WARFARIN TABS 1MG TAKE 2 TABLETS (2 MG) DAILY WITH THE 5 MG TABLET TO EQUAL 7 MG DAILY WARFARIN SODIUM 21597713657 Active Maria Briones Active WARFARIN SODIUM 5 MG TABS TAKE 1 TABLET DAILY W ARFARIN SODIUM 00996730596 Active Allison Anthony APRN-C Active KEFLEX 500 MG ORAL CAPSULE 1 capsule by mouth three times da rocky x10 days CEPHALEXIN 85951131039 No Longer Active Maria landaverde RN Active METOPROLOL TARTRATE TABS 50MG TAKE 1 TABLET TWICE A DAY ([facility]) METOPROLOL TARTRATE 73525947973 Active Maria Briones Active DOXAZOSIN MESYLATE 2 MG ORAL TABLET 1 po q day for pr ostate and blood pressure DOXAZOSIN MESYLATE 45687697989 Active Mitch Urbina DO Active LOSARTAN TABS 100MG TAKE 1 TABLET DAILY FOR BLOOD PRESSURE LOSARTAN POTASSIUM 23874651295 Active Maria Rivas RN Active FLUTICASONE PROPIONATE 50 MCG/ACT NASAL SUSPENSION 1 s pray each nostril twice daily for 1 week, then once daily FLUTICASONE ME OPIONATE 53340649858 Active Becky Sell SENIOR MECHANICAL TECHNICIAN Active PREDNISONE 20 MG ORAL TABLET 2 tabs daily for 3 days 1 tab d aily for 3 days PREDNISONE 65185621180 No Longer Active Becky Sell SENIOR MECHANICAL TECHNICIAN Active MINOXIDIL 2.5 MG ORAL TABLET 1 tablet twice daily for high b lood pressure MINOXIDIL 36949088111 Active Mitch Urbina DO Ac tive METFORMIN HCL ER 500 MG ORAL TABLET EXTENDED RELEASE 2 4 HOUR 2 tablets by mouth twice daily METFORMIN HCL 97459767845 Active Mitch rUbina DO Active GLIMEPIRIDE 4 MG ORAL TABLET 1 tablet by mouth twice daily f or diabetes GLIMEPIRIDE 07746509562 Active Mitch Urbina DO Active GLIMEPIRIDE 2 MG ORAL TABLET 1 po BID GLIMEPI RIDE 39176601893 No Longer Active Mitch Urbina DO Active PROVIGIL 200 MG ORAL TABLET 1/2 tab po q day MODA FINIL 04775254776 Active Maria Rivas RN Active FAMOTIDINE 20 MG ORAL TABLET by mouth twice a day 2017 FAMOTIDINE 72735579316 No Longer Active Mitch Urbina DO Active COLCRYS 0.6 MG ORAL TABLET 1 tab qid prn gout C OLCHICINE 86576549671 No Longer Active Mitch Urbina DO Active KEFLEX 500 MG ORAL CAPSULE 1 po qid CEPHALEXI N 68405080928 No Longer Active Mitch Urbina DO Active AMLODIPINE BESYLATE 5 MG ORAL TABLET 1 tablet by mouth daily 201 01/20/04 AMLODIPINE BESYLATE 56419765158 No Longer Active Joe fulton APRN Active MITIGARE 0.6 MG ORAL CAPSULE 2 capsules at onset of go ut pain, then take one capsule at 1 hour if symptoms persist. COLCHICINE 59 776704265 Active Mitch Urbina DO Active MECLIZINE HCL 25 MG ORAL TABLET 1 po tid 3 days, then 1/2 ta b tid 3 days MECLIZINE HCL 09095400101 No Longer Active Corey SEGURA Active ALLOPURINOL 300 MG ORAL TABLET Take 1 tablet by mouth daily 2012 ALLOPURINOL 37358979970 No Longer Active Corey SEGURA Active CLONIDINE HCL 0.1 MG ORAL TABLET 1 po bid 7 days, then 1/2 t ab po bid 7 days CLONIDINE HCL 85561297667 No Longer Active Corey SEGURA Active COUMADIN 4 MG ORAL TABLET 1 tablet daily WARFAR IN SODIUM 77587160132 No Longer Active Corey SEGURA Active POLYTRIM 00926-4.1 UNIT/ML-% OPHTHALMIC SOLUTION 1 rui p in affected eye every 3 hours while awake x 7 days POLYMYXIN B-TRIMETHOP RIM 84878602105 No Longer Active Corey SEGURA Active LOSARTAN POTASSIUM-HCTZ 100-12.5 MG ORAL TABLET 1 by m outh daily for high blood pressure LOSARTAN POTASSIUM-HCTZ 24025726857 No Longer A ctive Mitch Urbina DO Active LISINOPRIL-HYDROCHLOROTHIAZIDE 20-12.5 MG ORAL TABLET 1 tab by m outh daily LISINOPRIL-HYDROCHLOROTHIAZIDE 55606169862 No Longer Active Mitch Urbina DO Active LISINOPRIL 20 MG ORAL TABLET 1 tab po at HS LIS INOPRIL 50104199728 No Longer Active Mitch Urbina DO Active COUMADIN 5 MG ORAL TABLET 1 by mouth every other day 2 WARFARIN SODIUM 57473165987 No Longer Active Mitch Urbina DO Active COUMADIN 6 MG ORAL TABLET 1 by mouth every other day 2 WARFARIN SODIUM 76998935857 No Longer Active Mitch Urbina DO Active SIMVASTATIN 40 MG ORAL TABLET 1 tab daily at bedtime SIMVASTATIN 26423521948 Active Maria Rivas RN Active SIMVASTATIN 20 MG ORAL TABLET 1 tab daily at bedtime 2 SIMVASTATIN 95431681614 No Longer Active Mitch Urbina DO Active LOVENOX 100 MG/ML SUBCUTANEOUS SOLUTION One injection twice a da y ENOXAPARIN SODIUM 14188999279 No Longer Active Carmine Yusuf MD Active JANUVIA 100 MG ORAL TABLET 1/2 by mouth every day 2011 SITAGLIPTIN PHOSPHATE 66912178096 No Longer Active Bijal Segal RN Acti ve METFORMIN HCL 500 MG ORAL TABLET 2 by mouth twice daily METFORMIN HCL 52245883042 No Longer Active Renee Oconnor WEED COOKING OPERATOR Active COLCRYS 0.6 MG ORAL TABLET 1 po q 6 hours prn gout pain COLCHICINE 46965980969 No Longer Active Camila Reese Active LISINOPRIL 5 MG ORAL TABLET 1 by mouth every day 11/17 LISINOPRIL 16088549352 No Longer Active Nguyen Perez Active KLOR-CON 20 MEQ ORAL PACKET Take one by mouth daily 20 09/10/08 POTASSIUM CHLORIDE 86036063933 No Longer Active Nguyen Perez Active FUROSEMIDE 40 MG ORAL TABLET 1 by mouth daily F UROSEMIDE 76385576571 No Longer Active Nguyen Perez Active PROVIGIL 100 MG ORAL TABLET Take one by mouth daily 20 08/20/04 MODAFINIL 11091702301 No Longer Active Mitch Urbina DO Active BACTRIM DS 800-160 MG ORAL TABLET 1 tab by mouth twice daily 201 10/19/09 TRIMETHOPRIM-SULFAMETHOXAZOLE 98357527993 No Longer Active C alberto Hays MD Active ADULT ASPIRIN LOW STRENGTH 81 MG ORAL TABLET DISINTEGR ATING 1 by mouth every daily ASPIRIN 59003410867 Active Mitch Urbina DO Ac tive BACTRIM DS 800-160 MG ORAL TABLET 1 tab by mouth twice daily 201 10/19/09 BACTRIM DS 800-160 MG ORAL TABLET 875069 TRIMETHOPRIM-SULFAMETHOXAZOLE Inactive PROVIGIL 100 MG ORAL TABLET Take one by mouth daily 08/20/04 PROVIGIL 100 MG ORAL TABLET 749556 MODAFINIL Inactive FUROSEMIDE 40 MG ORAL TABLET 1 by mouth daily FUROSEMIDE 40 MG ORAL TABLET 924225 FUROSEMIDE Inactive KLOR-CON 20 MEQ ORAL PACKET Take one by mouth daily 09/10/08 KLOR- CON 20 MEQ ORAL PACKET 4340593 POTASSIUM CHLORIDE Inactive LISINOPRIL 5 MG ORAL TABLET 1 by mouth every day 11/17 LISINOPRIL 5 MG ORAL TABLET 135884 LISINOPRIL Inactive COLCRYS 0.6 MG ORAL TABLET 1 po q 6 hours prn gout pain COLCRYS 0.6 MG ORAL TABLET 380486 COLCHICINE Inactive JANUVIA 100 MG ORAL TABLET 1/2 by mouth every day 2011 JANUVIA 100 MG ORAL TABLET SITAGLIPTIN PHOSPHATE Inactive SIMVASTATIN 20 MG ORAL TABLET 1 tab daily at bedtime 2 SIMVASTATIN 20 MG ORAL TABLET 279107 SIMVASTATIN Inactive COUMADIN 6 MG ORAL TABLET 1 by mouth every other day 2 COUMADIN 6 MG ORAL TABLET 948838 WARFARIN SODIUM Inactive COUMADIN 5 MG ORAL TABLET 1 by mouth every other day 2 COUMADIN 5 MG ORAL TABLET 113252 WARFARIN SODIUM Inactive LISINOPRIL 20 MG ORAL TABLET 1 tab po at HS LISINOPRIL 20 MG ORAL TABLET 525729 LISINOPRIL Inactive LISINOPRIL-HYDROCHLOROTHIAZIDE 20-12.5 MG ORAL TABLET 1 tab by m outh daily LISINOPRIL-HYDROCHLOROTHIAZIDE 20-12.5 MG ORAL TABLET 799911 LISINOPRIL-HYDROCHLOROTHIAZIDE Inactive POLYTRIM 79163-7.1 UNIT/ML-% OPHTHALMIC SOLUTION 1 rui p in affected eye every 3 hours while awake x 7 days POLYTRIM 1000 0-0.1 UNIT/ML-% OPHTHALMIC SOLUTION 663313 POLYMYXIN B-TRIMETHOPRIM Inactive COUMADIN 4 MG ORAL TABLET 1 tablet daily COUMADIN 4 MG ORAL TABLET 806839 WARFARIN SODIUM Inactive CLONIDINE HCL 0.1 MG ORAL TABLET 1 po bid 7 days, then 1/2 t ab po bid 7 days CLONIDINE HCL 0.1 MG ORAL TABLET 001919 CLONIDIN E HCL Inactive ALLOPURINOL 300 MG ORAL TABLET Take 1 tablet by mouth daily 2012 ALLOPURINOL 300 MG ORAL TABLET 408182 ALLOPURINOL I nactive MECLIZINE HCL 25 MG ORAL TABLET 1 po tid 3 days, then 1/2 ta b tid 3 days MECLIZINE HCL 25 MG ORAL TABLET 814050 MECLIZINE HCL Inactive AMLODIPINE BESYLATE 5 MG ORAL TABLET 1 tablet by mouth daily 201 01/20/04 AMLODIPINE BESYLATE 5 MG ORAL TABLET 481412 AMLODIPINE BESYLATE Inactive KEFLEX 500 MG ORAL CAPSULE 1 po qid K EFLEX 500 MG ORAL CAPSULE 220573 CEPHALEXIN Inactive COLCRYS 0.6 MG ORAL TABLET 1 tab qid prn gout COLCRYS 0.6 MG ORAL TABLET 028219 COLCHICINE Inactive FAMOTIDINE 20 MG ORAL TABLET by mouth twice a day 2017 FAMOTIDINE 20 MG ORAL TABLET 151242 FAMOTIDINE Inactive GLIMEPIRIDE 2 MG ORAL TABLET 1 po BID GLIMEPIRIDE 2 MG ORAL TABLET 314994 GLIMEPIRIDE Inactive AMLODIPINE BESYLATE 5 MG ORAL TABLET 1 tablet by mouth daily 201 05/19/02 AMLODIPINE BESYLATE 5 MG ORAL TABLET 747776 AMLODIPINE BESYLATE Inactive LOVENOX 100 MG/ML SUBCUTANEOUS SOLUTION One injection twice a da y LOVENOX 100 MG/ML SUBCUTANEOUS SOLUTION 033492 ENOXAPAR IN SODIUM Inactive PREDNISONE 20 MG ORAL TABLET 2 tabs daily for 3 days 1 tab d aily for 3 days PREDNISONE 20 MG ORAL TABLET 997286 PREDNISONE Inactive KEFLEX 500 MG ORAL CAPSULE 1 capsule by mouth three times da rocky x10 days KEFLEX 500 MG ORAL CAPSULE 676085 CEPHALEXIN I nactive Advance Directives Directive Description [...] - Chem istry sodium, serum 138 mmol/L 120-361 7532/11/07 potassium, serum 4.5 mmol/L 3.5-5.2 chloride, serum [...] Panel - Chemistry sodium, serum 140 mmol/L 737-731 9146/11/01 carbon dioxide, venous blood 28.6 mmol/L 21.0-32 [...] mg/dL Encounters Code Encounter Date Provider Facility CPT-23961 [id number] Vst-Est Level IV 16:21:22 CDT Stephy Ambrose [facility] CPT-40907 Level 3 Est. Patient 15:18:36 CDT Becky anderson [facility] CPT-07100 [id number] Vst-Est Level IV 10:06:35 CDT Bru robinson Ambrose [facility] CPT-30732 [id number] Vst-Est Level IV 10:52:00 MAIL CLERKS SUPERVISOR Stephy Ambrose [facility] CPT-30490 Level 3 Est. Patient 18:25:53 CDT Mitch luis [facility] CPT-20549 Level 3 Est. Patient 19:43:34 CDT Mitch luis [facility] CPT-68197 Level 4 Est. Patient 09:30:18 CDT Mitch luis [facility] CPT-28000 Level 3 Est. Patient 15:10:14 CDT Joe Jason kamara [facility] CPT-95757 Level 3 Est. Patient 15:03:46 CDT Devonjustincarlitos kamara [facility]-15057 Level 3 Est. Patient 14:21:06 CDT Mitch Arnol L ee [facility] CPT-84173 Level 3 Est. Patient 14:52:06 CDT Devonsonya Jason kamara [facility]-47284 Level 3 Est. Patient 09:34:30 MAIL CLERKS SUPERVISOR Mitch W L ee [facility] CPT-79364 Level 3 Est. Patient 09:37:15 CDT Mitch W L ee [facility]-23559 Level 3 Est. Patient 17:01:00 MAIL CLERKS SUPERVISOR Mitch W L ee [facility] CPT-19637 Level 3 Est. Patient 13:53:19 MAIL CLERKS SUPERVISOR Mitch W L ee [facility] CPT-77236 Level 3 Est. Patient 19:19:37 MAIL CLERKS SUPERVISOR Mitch W L ee [facility] CPT-17352 Level 3 Est. Patient 13:25:53 MAIL CLERKS SUPERVISOR Tavo toure MD [facility]-01907 Level 3 Est. Patient 18:17:28 CDT Mitch W L ee [facility] CPT-13411 Level 3 Est. Patient 15:22:57 CDT Mitch W L ee [facility]-66245 Level 3 Est. Patient 18:21:50 CDT Mitch W L ee [facility]-15040 Level 3 Est. Patient 18:20:38 CDT Mitch W L ee [facility]-50108 Level 3 Est. Patient 15:37:55 CDT Mitch W L ee [facility] CPT-00031 Level 2 Est. Patient 15:54:44 CDT Carmine benton MD [facility]-98802 Level 3 Est. Patient 21:46:01 MAIL CLERKS SUPERVISOR Mitch Arnol Nona janelle [facility] CPT-70355 Level 3 Est. Patient 22:15:50 CDT Mitch luis [facility] CPT-80396 Level 3 Est. Patient 10:48:15 CDT Mitch luis [facility] CPT-46902 Level 3 Est. Patient 23:20:57 CDT Tavo toure MD [facility] CPT-73710 Level 3 Est. Patient 16:26:13 CDT Mitch luis [facility] Procedures Code Procedure Name Date Entry Date Standard Desc ription CPT-78398 Venipuncture Draw Fee 14:46:55 MAIL CLERKS SUPERVISOR CPT-58807 Venipuncture Draw Fee 08:26:21 CDT CPT-86546 Venous Duplex Left Leg XRAY USE ONLY 10:43:10 CDT CPT-02985 Venipuncture Draw Fee 17:04:55 CDT CPT-47200 Venipuncture Draw Fee 17:20:50 CDT CPT-53902 Venipuncture Draw Fee 18:00:48 CDT CPT-60091 Venipuncture Draw Fee 14:56:20 CDT CPT-JTINJ Asp/Joint Injection 18:47:02 CDT CPT-76981 Venipuncture Draw Fee 09:26:17 CDT CPT-89429 PT/INR - LAB USE ONLY 13:32:49 MAIL CLERKS SUPERVISOR CPT-27164 Venipuncture Draw Fee 13:32:49 MAIL CLERKS SUPERVISOR CPT-66501 PT/INR - LAB USE ONLY 10:34:49 MAIL CLERKS SUPERVISOR CPT-76361 Venipuncture Draw Fee 10:34:48 MAIL CLERKS SUPERVISOR CPT-24193 PT/INR - LAB USE ONLY 09:22:03 MAIL CLERKS SUPERVISOR CPT-17016 Venipuncture Draw Fee 09:22:02 MAIL CLERKS SUPERVISOR CPT-07300 Hemoccult IFOBT - LAB USE ONLY 10:27:22 CDT CPT-49210 Venipuncture Draw Fee 08:27:08 CDT CPT-72224 Liver Profile - LAB USE ONLY 08:27:07 CDT 2 CPT-54184 Microalbumin - LAB USE ONLY 08:27:07 CDT 20 25/05/09 CPT-50987 PT/INR - LAB USE ONLY 08:27:07 CDT CPT-00875 HGBA1C - LAB USE ONLY 08:27:07 CDT CPT-06975 CBC - LAB USE ONLY 08:27:07 CDT CPT-81124 Venipuncture Draw Fee 11:09:14 CDT CPT-86575 Venipuncture Draw Fee 08:32:21 MAIL CLERKS SUPERVISOR CPT-70212 Venipuncture Draw Fee 09:38:56 MAIL CLERKS SUPERVISOR CPT-89014 No Charge Offi Visit 21:36:07 CDT 1 CPT-45240 Venipuncture Draw Fee 10:13:28 MAIL CLERKS SUPERVISOR CPT-22378 Venipuncture Draw Fee 08:31:11 CDT CPT-08952 Aspir/Inject Med Joint 18:17:28 CDT CPT-21504 Venipuncture Draw Fee 10:13:30 CDT CPT-36509 Venipuncture Draw Fee 08:31:43 MAIL CLERKS SUPERVISOR CPT-JTINJ Joint Injection 18:34:50 CDT CPT-49063 Knee 3V 12:25:09 CDT CPT-01792 Venipuncture Draw Fee 12:15:57 CDT CPT-060 Medical Surveillance Exam 21:31:43 CDT 2011 CPT-33697 Venipuncture Draw Fee 08:32:05 MAIL CLERKS SUPERVISOR CPT-OV Office Visit 18:19:06 CDT
--- OUTSIDE RECORDS SUMMARY | 2020-01-18 14:00 | XMS REPORT | Clinical Summary ---
Author Author Admin, Mitch Leon Organization [facility] Address Unknown Phone Unavailable Allergies, Adverse Reactions, [...] Coronary atherosclerosis of unspecified type of vessel, holy cross or graft EDEMA 782.3 Resolved Mitch Urbina [...] and fatigue Cough, chronic 786.2 Resolved Mitch rAnol Carlitos DO Cough Sebaceous cyst, infected 706.2 [...] TAKE 1 TABLET DAILY SITAGLIPT IN PHOSPHATE 81158626265 Active Maria Rivas RN Active INVOKANA TABS 100MG TAKE 1 TABLET DAILY CANAGLIFL OZIN 01823265069 Active Maria Rivas RN Active AMLODIPINE BESYLATE 5 MG ORAL TABLET 1 tablet by mouth daily 201 05/19/02 AMLODIPINE BESYLATE 72461931999 No Longer Active Maria Briones Active WARFARIN TABS 1MG TAKE 2 TABLETS (2 MG) DAILY WITH THE 5 MG TABLET TO EQUAL 7 MG DAILY WARFARIN SODIUM 01990601321 Active Maria Briones Active WARFARIN SODIUM 5 MG TABS TAKE 1 TABLET DAILY W ARFARIN SODIUM 39953106618 Active Allison Anthony APRN-C Active KEFLEX 500 MG ORAL CAPSULE 1 capsule by mouth three times da rocky x10 days CEPHALEXIN 04682101772 No Longer Active Maria landaverde RN Active METOPROLOL TARTRATE TABS 50MG TAKE 1 TABLET TWICE A DAY ([facility]) METOPROLOL TARTRATE 34788620895 Active Maria Briones Active DOXAZOSIN MESYLATE 2 MG ORAL TABLET 1 po q day for pr ostate and blood pressure DOXAZOSIN MESYLATE 26067222789 Active Mitch Urbina DO Active LOSARTAN TABS 100MG TAKE 1 TABLET DAILY FOR BLOOD PRESSURE LOSARTAN POTASSIUM 01266439135 Active Maria Rivas RN Active FLUTICASONE PROPIONATE 50 MCG/ACT NASAL SUSPENSION 1 s pray each nostril twice daily for 1 week, then once daily FLUTICASONE FL OPIONATE 84866029386 Active Becky Sell [employer] Active PREDNISONE 20 MG ORAL TABLET 2 tabs daily for 3 days 1 tab d aily for 3 days PREDNISONE 00802511529 No Longer Active Becky Sell [employer] Active MINOXIDIL 2.5 MG ORAL TABLET 1 tablet twice daily for high b lood pressure MINOXIDIL 02182437165 Active Mitch Urbina DO Ac tive METFORMIN HCL ER 500 MG ORAL TABLET EXTENDED RELEASE 2 4 HOUR 2 tablets by mouth twice daily METFORMIN HCL 87695297282 Active Mitch Urbina DO Active GLIMEPIRIDE 4 MG ORAL TABLET 1 tablet by mouth twice daily f or diabetes GLIMEPIRIDE 84554642287 Active Mitch Urbina DO Active GLIMEPIRIDE 2 MG ORAL TABLET 1 po BID GLIMEPI RIDE 12580244048 No Longer Active Mitch Urbina DO Active PROVIGIL 200 MG ORAL TABLET 1/2 tab po q day MODA FINIL 45185533002 Active Maria Rivas RN Active FAMOTIDINE 20 MG ORAL TABLET by mouth twice a day 2017 FAMOTIDINE 74418793179 No Longer Active Mitch Urbina DO Active COLCRYS 0.6 MG ORAL TABLET 1 tab qid prn gout C OLCHICINE 51616310918 No Longer Active Mitch Urbina DO Active KEFLEX 500 MG ORAL CAPSULE 1 po qid CEPHALEXI N 84764091800 No Longer Active Mitch Urbina DO Active AMLODIPINE BESYLATE 5 MG ORAL TABLET 1 tablet by mouth daily 201 01/20/04 AMLODIPINE BESYLATE 25161024901 No Longer Active Joe fulton APRN Active MITIGARE 0.6 MG ORAL CAPSULE 2 capsules at onset of go ut pain, then take one capsule at 1 hour if symptoms persist. COLCHICINE 59 827932588 Active Mitch Urbina DO Active MECLIZINE HCL 25 MG ORAL TABLET 1 po tid 3 days, then 1/2 ta b tid 3 days MECLIZINE HCL 19967837179 No Longer Active Corey SEGURA Active ALLOPURINOL 300 MG ORAL TABLET Take 1 tablet by mouth daily 2012 ALLOPURINOL 82913612075 No Longer Active Corey SEGURA Active CLONIDINE HCL 0.1 MG ORAL TABLET 1 po bid 7 days, then 1/2 t ab po bid 7 days CLONIDINE HCL 39814202233 No Longer Active Corey SEGURA Active COUMADIN 4 MG ORAL TABLET 1 tablet daily WARFAR IN SODIUM 95233661063 No Longer Active Corey SEGURA Active POLYTRIM 47719-6.1 UNIT/ML-% OPHTHALMIC SOLUTION 1 rui p in affected eye every 3 hours while awake x 7 days POLYMYXIN B-TRIMETHOP RIM 11987113820 No Longer Active Corey SEGURA Active LOSARTAN POTASSIUM-HCTZ 100-12.5 MG ORAL TABLET 1 by m outh daily for high blood pressure LOSARTAN POTASSIUM-HCTZ 31943632354 No Longer A ctive Mitch Urbina DO Active LISINOPRIL-HYDROCHLOROTHIAZIDE 20-12.5 MG ORAL TABLET 1 tab by m outh daily LISINOPRIL-HYDROCHLOROTHIAZIDE 95723999612 No Longer Active Mitch Urbina DO Active LISINOPRIL 20 MG ORAL TABLET 1 tab po at HS LIS INOPRIL 84713959482 No Longer Active Mitch Urbina DO Active COUMADIN 5 MG ORAL TABLET 1 by mouth every other day 2 WARFARIN SODIUM 91056056339 No Longer Active Mitch Urbina DO Active COUMADIN 6 MG ORAL TABLET 1 by mouth every other day 2 WARFARIN SODIUM 54037227090 No Longer Active Mitch Urbina DO Active SIMVASTATIN 40 MG ORAL TABLET 1 tab daily at bedtime SIMVASTATIN 38474077146 Active Maria Rivas RN Active SIMVASTATIN 20 MG ORAL TABLET 1 tab daily at bedtime 2 SIMVASTATIN 37451925298 No Longer Active Mitch Urbina DO Active LOVENOX 100 MG/ML SUBCUTANEOUS SOLUTION One injection twice a da y ENOXAPARIN SODIUM 59737152904 No Longer Active Carmine Yusuf MD Active JANUVIA 100 MG ORAL TABLET 1/2 by mouth every day 2011 SITAGLIPTIN PHOSPHATE 79056202975 No Longer Active Bijal Segal RN Acti ve METFORMIN HCL 500 MG ORAL TABLET 2 by mouth twice daily METFORMIN HCL 25337479421 No Longer Active Renee Oconnor LPN Active COLCRYS 0.6 MG ORAL TABLET 1 po q 6 hours prn gout pain COLCHICINE 61330322155 No Longer Active Camila Reese Active LISINOPRIL 5 MG ORAL TABLET 1 by mouth every day 11/17 LISINOPRIL 27789293833 No Longer Active Nguyen Perez Active KLOR-CON 20 MEQ ORAL PACKET Take one by mouth daily 20 09/10/08 POTASSIUM CHLORIDE 39813322025 No Longer Active Nguyen Perez Active FUROSEMIDE 40 MG ORAL TABLET 1 by mouth daily F UROSEMIDE 52062509603 No Longer Active Nguyen Perez Active PROVIGIL 100 MG ORAL TABLET Take one by mouth daily 20 08/20/04 MODAFINIL 46866313469 No Longer Active Mitch Urbina DO Active BACTRIM DS 800-160 MG ORAL TABLET 1 tab by mouth twice daily 201 10/19/09 TRIMETHOPRIM-SULFAMETHOXAZOLE 81118441115 No Longer Active C alberto Hays MD Active ADULT ASPIRIN LOW STRENGTH 81 MG ORAL TABLET DISINTEGR ATING 1 by mouth every daily ASPIRIN 06756633038 Active Mitch Urbina DO Ac tive BACTRIM DS 800-160 MG ORAL TABLET 1 tab by mouth twice daily 201 10/19/09 BACTRIM DS 800-160 MG ORAL TABLET 954237 TRIMETHOPRIM-SULFAMETHOXAZOLE Inactive PROVIGIL 100 MG ORAL TABLET Take one by mouth daily 08/20/04 PROVIGIL 100 MG ORAL TABLET 458056 MODAFINIL Inactive FUROSEMIDE 40 MG ORAL TABLET 1 by mouth daily FUROSEMIDE 40 MG ORAL TABLET 471278 FUROSEMIDE Inactive KLOR-CON 20 MEQ ORAL PACKET Take one by mouth daily 09/10/08 KLOR- CON 20 MEQ ORAL PACKET 4436280 POTASSIUM CHLORIDE Inactive LISINOPRIL 5 MG ORAL TABLET 1 by mouth every day 11/17 LISINOPRIL 5 MG ORAL TABLET 513979 LISINOPRIL Inactive COLCRYS 0.6 MG ORAL TABLET 1 po q 6 hours prn gout pain COLCRYS 0.6 MG ORAL TABLET 148403 COLCHICINE Inactive JANUVIA 100 MG ORAL TABLET 1/2 by mouth every day 2011 JANUVIA 100 MG ORAL TABLET SITAGLIPTIN PHOSPHATE Inactive SIMVASTATIN 20 MG ORAL TABLET 1 tab daily at bedtime 2 SIMVASTATIN 20 MG ORAL TABLET 864137 SIMVASTATIN Inactive COUMADIN 6 MG ORAL TABLET 1 by mouth every other day 2 COUMADIN 6 MG ORAL TABLET 288875 WARFARIN SODIUM Inactive COUMADIN 5 MG ORAL TABLET 1 by mouth every other day 2 COUMADIN 5 MG ORAL TABLET 360891 WARFARIN SODIUM Inactive LISINOPRIL 20 MG ORAL TABLET 1 tab po at HS LISINOPRIL 20 MG ORAL TABLET 638573 LISINOPRIL Inactive LISINOPRIL-HYDROCHLOROTHIAZIDE 20-12.5 MG ORAL TABLET 1 tab by m outh daily LISINOPRIL-HYDROCHLOROTHIAZIDE 20-12.5 MG ORAL TABLET 926325 LISINOPRIL-HYDROCHLOROTHIAZIDE Inactive POLYTRIM 61574-0.1 UNIT/ML-% OPHTHALMIC SOLUTION 1 rui p in affected eye every 3 hours while awake x 7 days POLYTRIM 1000 0-0.1 UNIT/ML-% OPHTHALMIC SOLUTION 419748 POLYMYXIN B-TRIMETHOPRIM Inactive COUMADIN 4 MG ORAL TABLET 1 tablet daily COUMADIN 4 MG ORAL TABLET 564489 WARFARIN SODIUM Inactive CLONIDINE HCL 0.1 MG ORAL TABLET 1 po bid 7 days, then 1/2 t ab po bid 7 days CLONIDINE HCL 0.1 MG ORAL TABLET 542180 CLONIDIN E HCL Inactive ALLOPURINOL 300 MG ORAL TABLET Take 1 tablet by mouth daily 2012 ALLOPURINOL 300 MG ORAL TABLET 007275 ALLOPURINOL I nactive MECLIZINE HCL 25 MG ORAL TABLET 1 po tid 3 days, then 1/2 ta b tid 3 days MECLIZINE HCL 25 MG ORAL TABLET 830815 MECLIZINE HCL Inactive AMLODIPINE BESYLATE 5 MG ORAL TABLET 1 tablet by mouth daily 201 01/20/04 AMLODIPINE BESYLATE 5 MG ORAL TABLET 420176 AMLODIPINE BESYLATE Inactive KEFLEX 500 MG ORAL CAPSULE 1 po qid K EFLEX 500 MG ORAL CAPSULE 295645 CEPHALEXIN Inactive COLCRYS 0.6 MG ORAL TABLET 1 tab qid prn gout COLCRYS 0.6 MG ORAL TABLET 172981 COLCHICINE Inactive FAMOTIDINE 20 MG ORAL TABLET by mouth twice a day 2017 FAMOTIDINE 20 MG ORAL TABLET 101984 FAMOTIDINE Inactive GLIMEPIRIDE 2 MG ORAL TABLET 1 po BID GLIMEPIRIDE 2 MG ORAL TABLET 373639 GLIMEPIRIDE Inactive AMLODIPINE BESYLATE 5 MG ORAL TABLET 1 tablet by mouth daily 201 05/19/02 AMLODIPINE BESYLATE 5 MG ORAL TABLET 339550 AMLODIPINE BESYLATE Inactive LOVENOX 100 MG/ML SUBCUTANEOUS SOLUTION One injection twice a da y LOVENOX 100 MG/ML SUBCUTANEOUS SOLUTION 090697 ENOXAPAR IN SODIUM Inactive PREDNISONE 20 MG ORAL TABLET 2 tabs daily for 3 days 1 tab d aily for 3 days PREDNISONE 20 MG ORAL TABLET 922236 PREDNISONE Inactive KEFLEX 500 MG ORAL CAPSULE 1 capsule by mouth three times da rocky x10 days KEFLEX 500 MG ORAL CAPSULE 092617 CEPHALEXIN I nactive Advance Directives Directive Description [...] - Chem istry sodium, serum 138 mmol/L 497-078 2519/11/07 potassium, serum 4.5 mmol/L 3.5-5.2 chloride, serum [...] Panel - Chemistry sodium, serum 140 mmol/L 355-754 0765/11/01 carbon dioxide, venous blood 28.6 mmol/L 21.0-32 [...] mg/dL Encounters Code Encounter Date Provider Facility CPT-72851 [id number] Vst-Est Level IV 16:21:22 CDT Stephy Ambrose [facility] CPT-67856 Level 3 Est. Patient 15:18:36 CDT Becky anderson [facility] CPT-83578 [id number] Vst-Est Level IV 10:06:35 CDT Bru robinson Ambrose [facility]-54975 [id number] Vst-Est Level IV 10:52:00 WEIGHT CALLER Stephy Ambrose [facility] CPT-61762 Level 3 Est. Patient 18:25:53 CDT Mitch luis [facility] CPT-46428 Level 3 Est. Patient 19:43:34 CDT Mitch luis [facility] CPT-00599 Level 4 Est. Patient 09:30:18 CDT Mitch luis [facility] CPT-10552 Level 3 Est. Patient 15:10:14 CDT Joe Gomez razell [facility] CPT-45759 Level 3 Est. Patient 15:03:46 CDT Devonsonya Jason kamara [facility] [place]-42944 Level 3 Est. Patient 14:21:06 CDT Mitch Arnol Castellano ee [facility] CPT-49561 Level 3 Est. Patient 14:52:06 CDT Devonsonya Jason kamara [facility] [place]-38650 Level 3 Est. Patient 09:34:30 WEIGHT CALLER Mitch W L ee [facility] CPT-20458 Level 3 Est. Patient 09:37:15 CDT Mitch W L ee [facility]-75602 Level 3 Est. Patient 17:01:00 WEIGHT CALLER Mitch Ambrose L ee [facility] CPT-08464 Level 3 Est. Patient 13:53:19 WEIGHT CALLER Mitch W L janelle [facility] CPT-09377 Level 3 Est. Patient 19:19:37 WEIGHT CALLER Mitch W L ee [facility] CPT-23361 Level 3 Est. Patient 13:25:53 WEIGHT CALLER Tavo toure MD [facility]-56100 Level 3 Est. Patient 18:17:28 CDT Mitch W L ee [facility] CPT-66768 Level 3 Est. Patient 15:22:57 CDT Mitch W L ee [facility]-21805 Level 3 Est. Patient 18:21:50 CDT Mitch W L ee [facility] CPT-37013 Level 3 Est. Patient 18:20:38 CDT Mitch W L ee [facility]-26224 Level 3 Est. Patient 15:37:55 CDT Mitch W L ee [facility] CPT-95466 Level 2 Est. Patient 15:54:44 CDT Carmine benton MD [facility]-06872 Level 3 Est. Patient 21:46:01 WEIGHT CALLER Mitch Arnol Nona luis [facility] CPT-82496 Level 3 Est. Patient 22:15:50 CDT Mitch Arnol Nona luis [facility] CPT-86369 Level 3 Est. Patient 10:48:[address] [facility] CPT-93567 Level 3 Est. Patient 23:20:57 CDT Tavo toure MD [facility] CPT-13389 Level 3 Est. Patient 16:26:[address] [facility] Procedures Code Procedure Name Date Entry Date Standard Desc ription CPT-03482 Venipuncture Draw Fee 14:46:55 WEIGHT CALLER CPT-45385 Venipuncture Draw Fee 08:26:21 CDT CPT-65634 Venous Duplex Left Leg XRAY USE ONLY 10:43:10 CDT CPT-71882 Venipuncture Draw Fee 17:04:55 CDT CPT-12897 Venipuncture Draw Fee 17:20:50 CDT CPT-34503 Venipuncture Draw Fee 18:00:48 CDT CPT-01136 Venipuncture Draw Fee 14:56:20 CDT CPT-JTINJ Asp/Joint Injection 18:47:02 CDT CPT-97569 Venipuncture Draw Fee 09:26:17 CDT CPT-28800 PT/INR - LAB USE ONLY 13:32:49 WEIGHT CALLER CPT-38745 Venipuncture Draw Fee 13:32:49 WEIGHT CALLER CPT-79259 PT/INR - LAB USE ONLY 10:34:49 WEIGHT CALLER CPT-01087 Venipuncture Draw Fee 10:34:48 WEIGHT CALLER CPT-61139 PT/INR - LAB USE ONLY 09:22:03 WEIGHT CALLER CPT-86258 Venipuncture Draw Fee 09:22:02 WEIGHT CALLER CPT-14312 Hemoccult IFOBT - LAB USE ONLY 10:27:22 CDT CPT-21976 Venipuncture Draw Fee 08:27:08 CDT CPT-41992 Liver Profile - LAB USE ONLY 08:27:07 CDT 2 CPT-65308 Microalbumin - LAB USE ONLY 08:27:07 CDT 20 25/05/09 CPT-94678 PT/INR - LAB USE ONLY 08:27:07 CDT CPT-71236 HGBA1C - LAB USE ONLY 08:27:07 CDT CPT-63606 CBC - LAB USE ONLY 08:27:07 CDT CPT-41967 Venipuncture Draw Fee 11:09:14 CDT CPT-17458 Venipuncture Draw Fee 08:32:21 WEIGHT CALLER CPT-36878 Venipuncture Draw Fee 09:38:56 WEIGHT CALLER CPT-13397 No Charge Offi Visit 21:36:07 CDT 1 CPT-33802 Venipuncture Draw Fee 10:13:28 WEIGHT CALLER CPT-36318 Venipuncture Draw Fee 08:31:11 CDT CPT-66328 Aspir/Inject Med Joint 18:17:28 CDT CPT-13397 Venipuncture Draw Fee 10:13:30 CDT CPT-10312 Venipuncture Draw Fee 08:31:43 WEIGHT CALLER CPT-JTINJ Joint Injection 18:34:50 CDT CPT-61546 Knee 3V 12:25:09 CDT CPT-99788 Venipuncture Draw Fee 12:15:57 CDT CPT-060 Medical Surveillance Exam 21:31:43 CDT 2011 CPT-00597 Venipuncture Draw Fee 08:32:05 WEIGHT CALLER CPT-OV Office Visit 18:19:06 CDT
--- OUTSIDE RECORDS SUMMARY | 2020-01-18 14:00 | XMS REPORT | Clinical Summary ---
[...] TAKE 1 TABLET DAILY SITAGLIPT IN PHOSPHATE 24281922453 Active Maria Rivas RN Active INVOKANA TABS 100MG TAKE 1 TABLET DAILY CANAGLIFL OZIN 26976806815 Active Maria Rivas RN Active AMLODIPINE BESYLATE 5 MG ORAL TABLET 1 tablet by mouth daily 201 05/19/02 AMLODIPINE BESYLATE 16875454958 No Longer Active Maria Briones Active WARFARIN TABS 1MG TAKE 2 TABLETS (2 MG) DAILY WITH THE 5 MG TABLET TO EQUAL 7 MG DAILY WARFARIN SODIUM 46860371416 Active Maria Briones Active WARFARIN SODIUM 5 MG TABS TAKE 1 TABLET DAILY W ARFARIN SODIUM 28649219855 Active Allison Anthony APRN-C Active KEFLEX 500 MG ORAL CAPSULE 1 capsule by mouth three times da rocky x10 days CEPHALEXIN 46338174972 No Longer Active Maria landaverde RN Active METOPROLOL TARTRATE TABS 50MG TAKE 1 TABLET TWICE A DAY ([facility]) METOPROLOL TARTRATE 61299427600 Active Maria Briones Active DOXAZOSIN MESYLATE 2 MG ORAL TABLET 1 po q day for pr ostate and blood pressure DOXAZOSIN MESYLATE 12942316526 Active Mitch Urbina DO Active LOSARTAN TABS 100MG TAKE 1 TABLET DAILY FOR BLOOD PRESSURE LOSARTAN POTASSIUM 69645909427 Active Maria Rivas RN Active FLUTICASONE PROPIONATE 50 MCG/ACT NASAL SUSPENSION 1 s pray each nostril twice daily for 1 week, then once daily FLUTICASONE LA OPIONATE 21615670198 Active Becky Sell NURSING SECRETARY Active PREDNISONE 20 MG ORAL TABLET 2 tabs daily for 3 days 1 tab d aily for 3 days PREDNISONE 70450983001 No Longer Active Becky Sell NURSING SECRETARY Active MINOXIDIL 2.5 MG ORAL TABLET 1 tablet twice daily for high b lood pressure MINOXIDIL 57880615985 Active Mitch Urbina DO Ac tive METFORMIN HCL ER 500 MG ORAL TABLET EXTENDED RELEASE 2 4 HOUR 2 tablets by mouth twice daily METFORMIN HCL 31306765780 Active Mitch Urbina DO Active GLIMEPIRIDE 4 MG ORAL TABLET 1 tablet by mouth twice daily f or diabetes GLIMEPIRIDE 88135682892 Active Mitch Urbina DO Active GLIMEPIRIDE 2 MG ORAL TABLET 1 po BID GLIMEPI RIDE 37025386267 No Longer Active Mitch Urbina DO Active PROVIGIL 200 MG ORAL TABLET 1/2 tab po q day MODA FINIL 21503491098 Active Maria Rivas RN Active FAMOTIDINE 20 MG ORAL TABLET by mouth twice a day 2017 FAMOTIDINE 44323066427 No Longer Active Mitch Urbina DO Active COLCRYS 0.6 MG ORAL TABLET 1 tab qid prn gout C OLCHICINE 15756070720 No Longer Active Mitch Urbina DO Active KEFLEX 500 MG ORAL CAPSULE 1 po qid CEPHALEXI N 76158913059 No Longer Active Mitch Urbina DO Active AMLODIPINE BESYLATE 5 MG ORAL TABLET 1 tablet by mouth daily 201 01/20/04 AMLODIPINE BESYLATE 23922998753 No Longer Active Joe fulton APRN Active MITIGARE 0.6 MG ORAL CAPSULE 2 capsules at onset of go ut pain, then take one capsule at 1 hour if symptoms persist. COLCHICINE 59 778800563 Active Mitch Urbina DO Active MECLIZINE HCL 25 MG ORAL TABLET 1 po tid 3 days, then 1/2 ta b tid 3 days MECLIZINE HCL 35745457009 No Longer Active Corey SEGURA Active ALLOPURINOL 300 MG ORAL TABLET Take 1 tablet by mouth daily 2012 ALLOPURINOL 54923615106 No Longer Active Corey SEGURA Active CLONIDINE HCL 0.1 MG ORAL TABLET 1 po bid 7 days, then 1/2 t ab po bid 7 days CLONIDINE HCL 11250764208 No Longer Active Corey SEGURA Active COUMADIN 4 MG ORAL TABLET 1 tablet daily WARFAR IN SODIUM 00622490282 No Longer Active Corey SEGURA Active POLYTRIM 40235-5.1 UNIT/ML-% OPHTHALMIC SOLUTION 1 rui p in affected eye every 3 hours while awake x 7 days POLYMYXIN B-TRIMETHOP RIM 86267591813 No Longer Active Corey SEGURA Active LOSARTAN POTASSIUM-HCTZ 100-12.5 MG ORAL TABLET 1 by m outh daily for high blood pressure LOSARTAN POTASSIUM-HCTZ 57822535217 No Longer A ctive Mitch Urbina DO Active LISINOPRIL-HYDROCHLOROTHIAZIDE 20-12.5 MG ORAL TABLET 1 tab by m outh daily LISINOPRIL-HYDROCHLOROTHIAZIDE 19483935244 No Longer Active Mitch Urbina DO Active LISINOPRIL 20 MG ORAL TABLET 1 tab po at HS LIS INOPRIL 28941169351 No Longer Active Mitch Urbina DO Active COUMADIN 5 MG ORAL TABLET 1 by mouth every other day 2 WARFARIN SODIUM 50109491439 No Longer Active Mitch Urbina DO Active COUMADIN 6 MG ORAL TABLET 1 by mouth every other day 2 WARFARIN SODIUM 31371711620 No Longer Active Mitch Urbina DO Active SIMVASTATIN 40 MG ORAL TABLET 1 tab daily at bedtime SIMVASTATIN 52279865311 Active Maria Rivas RN Active SIMVASTATIN 20 MG ORAL TABLET 1 tab daily at bedtime 2 SIMVASTATIN 01929524137 No Longer Active Mitch Urbina DO Active LOVENOX 100 MG/ML SUBCUTANEOUS SOLUTION One injection twice a da y ENOXAPARIN SODIUM 29197253269 No Longer Active Carmine Yusuf MD Active JANUVIA 100 MG ORAL TABLET 1/2 by mouth every day 2011 SITAGLIPTIN PHOSPHATE 42992000332 No Longer Active Bijal Segal RN Acti ve METFORMIN HCL 500 MG ORAL TABLET 2 by mouth twice daily METFORMIN HCL 89653296635 No Longer Active Renee Oconnor DIETARY CLERK Active COLCRYS 0.6 MG ORAL TABLET 1 po q 6 hours prn gout pain COLCHICINE 67517720371 No Longer Active Camila Reese Active LISINOPRIL 5 MG ORAL TABLET 1 by mouth every day 11/17 LISINOPRIL 13718438308 No Longer Active Nguyen Perez Active KLOR-CON 20 MEQ ORAL PACKET Take one by mouth daily 20 09/10/08 POTASSIUM CHLORIDE 93419890727 No Longer Active Nguyen Perez Active FUROSEMIDE 40 MG ORAL TABLET 1 by mouth daily F UROSEMIDE 83987559008 No Longer Active Nguyen Perez Active PROVIGIL 100 MG ORAL TABLET Take one by mouth daily 20 08/20/04 MODAFINIL 78307058415 No Longer Active Mitch Urbina DO Active BACTRIM DS 800-160 MG ORAL TABLET 1 tab by mouth twice daily 201 10/19/09 TRIMETHOPRIM-SULFAMETHOXAZOLE 18318392028 No Longer Active C alberto Hays MD Active ADULT ASPIRIN LOW STRENGTH 81 MG ORAL TABLET DISINTEGR ATING 1 by mouth every daily ASPIRIN 00884647389 Active Mitch Urbina DO Ac tive BACTRIM DS 800-160 MG ORAL TABLET 1 tab by mouth twice daily 201 10/19/09 BACTRIM DS 800-160 MG ORAL TABLET 802374 TRIMETHOPRIM-SULFAMETHOXAZOLE Inactive PROVIGIL 100 MG ORAL TABLET Take one by mouth daily 08/20/04 PROVIGIL 100 MG ORAL TABLET 372137 MODAFINIL Inactive FUROSEMIDE 40 MG ORAL TABLET 1 by mouth daily FUROSEMIDE 40 MG ORAL TABLET 821529 FUROSEMIDE Inactive KLOR-CON 20 MEQ ORAL PACKET Take one by mouth daily 09/10/08 KLOR- CON 20 MEQ ORAL PACKET 4507477 POTASSIUM CHLORIDE Inactive LISINOPRIL 5 MG ORAL TABLET 1 by mouth every day 11/17 LISINOPRIL 5 MG ORAL TABLET 082271 LISINOPRIL Inactive COLCRYS 0.6 MG ORAL TABLET 1 po q 6 hours prn gout pain COLCRYS 0.6 MG ORAL TABLET 923273 COLCHICINE Inactive JANUVIA 100 MG ORAL TABLET 1/2 by mouth every day 2011 JANUVIA 100 MG ORAL TABLET SITAGLIPTIN PHOSPHATE Inactive SIMVASTATIN 20 MG ORAL TABLET 1 tab daily at bedtime 2 SIMVASTATIN 20 MG ORAL TABLET 522288 SIMVASTATIN Inactive COUMADIN 6 MG ORAL TABLET 1 by mouth every other day 2 COUMADIN 6 MG ORAL TABLET 553822 WARFARIN SODIUM Inactive COUMADIN 5 MG ORAL TABLET 1 by mouth every other day 2 COUMADIN 5 MG ORAL TABLET 262351 WARFARIN SODIUM Inactive LISINOPRIL 20 MG ORAL TABLET 1 tab po at HS LISINOPRIL 20 MG ORAL TABLET 966603 LISINOPRIL Inactive LISINOPRIL-HYDROCHLOROTHIAZIDE 20-12.5 MG ORAL TABLET 1 tab by m outh daily LISINOPRIL-HYDROCHLOROTHIAZIDE 20-12.5 MG ORAL TABLET 397744 LISINOPRIL-HYDROCHLOROTHIAZIDE Inactive POLYTRIM 61160-9.1 UNIT/ML-% OPHTHALMIC SOLUTION 1 rui p in affected eye every 3 hours while awake x 7 days POLYTRIM 1000 0-0.1 UNIT/ML-% OPHTHALMIC SOLUTION 130601 POLYMYXIN B-TRIMETHOPRIM Inactive COUMADIN 4 MG ORAL TABLET 1 tablet daily COUMADIN 4 MG ORAL TABLET 972183 WARFARIN SODIUM Inactive CLONIDINE HCL 0.1 MG ORAL TABLET 1 po bid 7 days, then 1/2 t ab po bid 7 days CLONIDINE HCL 0.1 MG ORAL TABLET 804811 CLONIDIN E HCL Inactive ALLOPURINOL 300 MG ORAL TABLET Take 1 tablet by mouth daily 2012 ALLOPURINOL 300 MG ORAL TABLET 485405 ALLOPURINOL I nactive MECLIZINE HCL 25 MG ORAL TABLET 1 po tid 3 days, then 1/2 ta b tid 3 days MECLIZINE HCL 25 MG ORAL TABLET 486809 MECLIZINE HCL Inactive AMLODIPINE BESYLATE 5 MG ORAL TABLET 1 tablet by mouth daily 201 01/20/04 AMLODIPINE BESYLATE 5 MG ORAL TABLET 048431 AMLODIPINE BESYLATE Inactive KEFLEX 500 MG ORAL CAPSULE 1 po qid K EFLEX 500 MG ORAL CAPSULE 314419 CEPHALEXIN Inactive COLCRYS 0.6 MG ORAL TABLET 1 tab qid prn gout COLCRYS 0.6 MG ORAL TABLET 776328 COLCHICINE Inactive FAMOTIDINE 20 MG ORAL TABLET by mouth twice a day 2017 FAMOTIDINE 20 MG ORAL TABLET 262776 FAMOTIDINE Inactive GLIMEPIRIDE 2 MG ORAL TABLET 1 po BID GLIMEPIRIDE 2 MG ORAL TABLET 830863 GLIMEPIRIDE Inactive AMLODIPINE BESYLATE 5 MG ORAL TABLET 1 tablet by mouth daily 201 05/19/02 AMLODIPINE BESYLATE 5 MG ORAL TABLET 653496 AMLODIPINE BESYLATE Inactive LOVENOX 100 MG/ML SUBCUTANEOUS SOLUTION One injection twice a da y LOVENOX 100 MG/ML SUBCUTANEOUS SOLUTION 938422 ENOXAPAR IN SODIUM Inactive PREDNISONE 20 MG ORAL TABLET 2 tabs daily for 3 days 1 tab d aily for 3 days PREDNISONE 20 MG ORAL TABLET 256762 PREDNISONE Inactive KEFLEX 500 MG ORAL CAPSULE 1 capsule by mouth three times da rocky x10 days KEFLEX 500 MG ORAL CAPSULE 036546 CEPHALEXIN I nactive Advance Directives Directive Description [...] - Chem istry sodium, serum 138 mmol/L 082-721 7408/11/07 potassium, serum 4.5 mmol/L 3.5-5.2 chloride, serum [...] Panel - Chemistry sodium, serum 140 mmol/L 466-782 1920/11/01 carbon dioxide, venous blood 28.6 mmol/L 21.0-32 [...] mg/dL Encounters Code Encounter Date Provider Facility CPT-27493 [id number] Vst-Est Level IV 16:21:22 CDT Stephy [facility] CPT-15770 Level 3 Est. Patient 15:18:36 CDT Becky anderson [facility] CPT-54296 [id number] Vst-Est Level IV 10:06:35 CDT Bru robinson [facility] CPT-33602 [id number] Vst-Est Level IV 10:52:00 STORM SASH MAKER Stephy [facility] CPT-63337 Level 3 Est. Patient 18:25:53 CDT Mitch luis [facility] CPT-58402 Level 3 Est. Patient 19:43:34 CDT Mitch luis [facility] CPT-14512 Level 4 Est. Patient 09:30:18 CDT Mitch luis [facility] CPT-70236 Level 3 Est. Patient 15:10:14 CDT Joe Jason kamara [facility] CPT-69379 Level 3 Est. Patient 15:03:46 CDT Devonjustincarlitos kamara [facility]-72196 Level 3 Est. Patient 14:21:06 CDT Mitch Arnol L ee [facility] CPT-73858 Level 3 Est. Patient 14:52:06 CDT Devonsonya Jason kamara [facility]-21839 Level 3 Est. Patient 09:34:30 STORM SASH MAKER Mitch W L ee [facility] CPT-54330 Level 3 Est. Patient 09:37:15 CDT Mitch W L ee [facility]-59003 Level 3 Est. Patient 17:01:00 STORM SASH MAKER Mitch W L ee [facility] CPT-42880 Level 3 Est. Patient 13:53:19 STORM SASH MAKER Mitch W L ee [facility] CPT-10321 Level 3 Est. Patient 19:19:37 STORM SASH MAKER Mitch W L ee [facility] CPT-97307 Level 3 Est. Patient 13:25:53 STORM SASH MAKER Tavo toure MD [facility]-93806 Level 3 Est. Patient 18:17:28 CDT Mitch W L ee [facility] CPT-29182 Level 3 Est. Patient 15:22:57 CDT Mitch W L ee [facility]-42070 Level 3 Est. Patient 18:21:50 CDT Mitch W L ee [facility]-55783 Level 3 Est. Patient 18:20:38 CDT Mitch W L ee [facility]-96564 Level 3 Est. Patient 15:37:55 CDT Mitch W L ee [facility] CPT-92943 Level 2 Est. Patient 15:54:44 CDT Carmine benton MD [facility]-99232 Level 3 Est. Patient 21:46:01 STORM SASH MAKER Mitch Arnol Nona janelle [facility] CPT-72800 Level 3 Est. Patient 22:15:50 CDT Mitch luis [facility] CPT-28421 Level 3 Est. Patient 10:48:15 CDT Mitch luis [facility] CPT-41369 Level 3 Est. Patient 23:20:57 CDT Tavo toure MD [facility] CPT-42739 Level 3 Est. Patient 16:26:13 CDT Mitch luis [facility] Procedures Code Procedure Name Date Entry Date Standard Desc ription CPT-04441 Venipuncture Draw Fee 14:46:55 STORM SASH MAKER CPT-49674 Venipuncture Draw Fee 08:26:21 CDT CPT-30127 Venous Duplex Left Leg XRAY USE ONLY 10:43:10 CDT CPT-13603 Venipuncture Draw Fee 17:04:55 CDT CPT-12810 Venipuncture Draw Fee 17:20:50 CDT CPT-92381 Venipuncture Draw Fee 18:00:48 CDT CPT-47142 Venipuncture Draw Fee 14:56:20 CDT CPT-JTINJ Asp/Joint Injection 18:47:02 CDT CPT-98369 Venipuncture Draw Fee 09:26:17 CDT CPT-11453 PT/INR - LAB USE ONLY 13:32:49 STORM SASH MAKER CPT-78141 Venipuncture Draw Fee 13:32:49 STORM SASH MAKER CPT-89968 PT/INR - LAB USE ONLY 10:34:49 STORM SASH MAKER CPT-64763 Venipuncture Draw Fee 10:34:48 STORM SASH MAKER CPT-08015 PT/INR - LAB USE ONLY 09:22:03 STORM SASH MAKER CPT-91251 Venipuncture Draw Fee 09:22:02 STORM SASH MAKER CPT-04057 Hemoccult IFOBT - LAB USE ONLY 10:27:22 CDT CPT-37167 Venipuncture Draw Fee 08:27:08 CDT CPT-36898 Liver Profile - LAB USE ONLY 08:27:07 CDT 2 CPT-77116 Microalbumin - LAB USE ONLY 08:27:07 CDT 20 25/05/09 CPT-45422 PT/INR - LAB USE ONLY 08:27:07 CDT CPT-96672 HGBA1C - LAB USE ONLY 08:27:07 CDT CPT-78332 CBC - LAB USE ONLY 08:27:07 CDT CPT-23014 Venipuncture Draw Fee 11:09:14 CDT CPT-99659 Venipuncture Draw Fee 08:32:21 STORM SASH MAKER CPT-01148 Venipuncture Draw Fee 09:38:56 STORM SASH MAKER CPT-05224 No Charge Offi Visit 21:36:07 CDT 1 CPT-63391 Venipuncture Draw Fee 10:13:28 STORM SASH MAKER CPT-17033 Venipuncture Draw Fee 08:31:11 CDT CPT-93504 Aspir/Inject Med Joint 18:17:28 CDT CPT-58101 Venipuncture Draw Fee 10:13:30 CDT CPT-51925 Venipuncture Draw Fee 08:31:43 STORM SASH MAKER CPT-JTINJ Joint Injection 18:34:50 CDT CPT-23442 Knee 3V 12:25:09 CDT CPT-49869 Venipuncture Draw Fee 12:15:57 CDT CPT-060 Medical Surveillance Exam 21:31:43 CDT 2011 CPT-24563 Venipuncture Draw Fee 08:32:05 STORM SASH MAKER CPT-OV Office Visit 18:19:06 CDT
--- OUTSIDE RECORDS SUMMARY | 2020-01-18 14:01 | XMS REPORT | Clinical Summary ---
Author Author Admin, Mitch Leon Organization [facility] Organizer Address Unknown Phone Unavailable Allergies, Adverse Reactions, [...] atherosclerosis of unspecified type of vessel, [place] or graft EDEMA 782.3 Resolved Mitch Urbina [...] TAKE 1 TABLET DAILY SITAGLIPT IN PHOSPHATE 78397439295 Active Maria Rivas RN Active INVOKANA TABS 100MG TAKE 1 TABLET DAILY CANAGLIFL OZIN 70982848868 Active Maria Rivas RN Active AMLODIPINE BESYLATE 5 MG ORAL TABLET 1 tablet by mouth daily 201 05/19/02 AMLODIPINE BESYLATE 02391250400 No Longer Active Maria Briones Active WARFARIN TABS 1MG TAKE 2 TABLETS (2 MG) DAILY WITH THE 5 MG TABLET TO EQUAL 7 MG DAILY WARFARIN SODIUM 67571204504 Active Maria Briones Active WARFARIN SODIUM 5 MG TABS TAKE 1 TABLET DAILY W ARFARIN SODIUM 67699916294 Active Allison Anthony APRN-C Active KEFLEX 500 MG ORAL CAPSULE 1 capsule by mouth three times da rocky x10 days CEPHALEXIN 75473720870 No Longer Active Maria landaverde RN Active METOPROLOL TARTRATE TABS 50MG TAKE 1 TABLET TWICE A DAY ([facility]) METOPROLOL TARTRATE 18520210660 Active Maria Briones Active DOXAZOSIN MESYLATE 2 MG ORAL TABLET 1 po q day for pr ostate and blood pressure DOXAZOSIN MESYLATE 41055067649 Active Mitch Urbina DO Active LOSARTAN TABS 100MG TAKE 1 TABLET DAILY FOR BLOOD PRESSURE LOSARTAN POTASSIUM 61028768710 Active Maria Rivas RN Active FLUTICASONE PROPIONATE 50 MCG/ACT NASAL SUSPENSION 1 s pray each nostril twice daily for 1 week, then once daily FLUTICASONE IA OPIONATE 21729345969 Active Becky Sell DUCT MAKER Active PREDNISONE 20 MG ORAL TABLET 2 tabs daily for 3 days 1 tab d aily for 3 days PREDNISONE 87630211080 No Longer Active Becky Sell DUCT MAKER Active MINOXIDIL 2.5 MG ORAL TABLET 1 tablet twice daily for high b lood pressure MINOXIDIL 72543750632 Active Mitch Urbina DO Ac tive METFORMIN HCL ER 500 MG ORAL TABLET EXTENDED RELEASE 2 4 HOUR 2 tablets by mouth twice daily METFORMIN HCL 37332452898 Active Mitch Urbina DO Active GLIMEPIRIDE 4 MG ORAL TABLET 1 tablet by mouth twice daily f or diabetes GLIMEPIRIDE 86751738413 Active Mitch Urbina DO Active GLIMEPIRIDE 2 MG ORAL TABLET 1 po BID GLIMEPI RIDE 28341474831 No Longer Active Mitch Urbina DO Active PROVIGIL 200 MG ORAL TABLET 1/2 tab po q day MODA FINIL 50708126257 Active Maria Rivas RN Active FAMOTIDINE 20 MG ORAL TABLET by mouth twice a day 2017 FAMOTIDINE 80163596773 No Longer Active Mitch Urbina DO Active COLCRYS 0.6 MG ORAL TABLET 1 tab qid prn gout C OLCHICINE 83726518353 No Longer Active Mitch Urbina DO Active KEFLEX 500 MG ORAL CAPSULE 1 po qid CEPHALEXI N 90957331460 No Longer Active Mitch Urbina DO Active AMLODIPINE BESYLATE 5 MG ORAL TABLET 1 tablet by mouth daily 201 01/20/04 AMLODIPINE BESYLATE 33221842203 No Longer Active Joe fulton APRN Active MITIGARE 0.6 MG ORAL CAPSULE 2 capsules at onset of go ut pain, then take one capsule at 1 hour if symptoms persist. COLCHICINE 59 113321132 Active Mitch Urbina DO Active MECLIZINE HCL 25 MG ORAL TABLET 1 po tid 3 days, then 1/2 ta b tid 3 days MECLIZINE HCL 47712732918 No Longer Active Corey SEGURA Active ALLOPURINOL 300 MG ORAL TABLET Take 1 tablet by mouth daily 2012 ALLOPURINOL 93724628891 No Longer Active Corey SEGURA Active CLONIDINE HCL 0.1 MG ORAL TABLET 1 po bid 7 days, then 1/2 t ab po bid 7 days CLONIDINE HCL 81659042270 No Longer Active Corey SEGURA Active COUMADIN 4 MG ORAL TABLET 1 tablet daily WARFAR IN SODIUM 15403676151 No Longer Active Corey SEGURA Active POLYTRIM 64509-2.1 UNIT/ML-% OPHTHALMIC SOLUTION 1 rui p in affected eye every 3 hours while awake x 7 days POLYMYXIN B-TRIMETHOP RIM 44443172753 No Longer Active Corey SEGURA Active LOSARTAN POTASSIUM-HCTZ 100-12.5 MG ORAL TABLET 1 by m outh daily for high blood pressure LOSARTAN POTASSIUM-HCTZ 39354013982 No Longer A ctive Mitch Urbina DO Active LISINOPRIL-HYDROCHLOROTHIAZIDE 20-12.5 MG ORAL TABLET 1 tab by m outh daily LISINOPRIL-HYDROCHLOROTHIAZIDE 68467244905 No Longer Active Mitch Urbina DO Active LISINOPRIL 20 MG ORAL TABLET 1 tab po at HS LIS INOPRIL 13051255863 No Longer Active Mitch Urbina DO Active COUMADIN 5 MG ORAL TABLET 1 by mouth every other day 2 WARFARIN SODIUM 24940706807 No Longer Active Mitch Urbina DO Active COUMADIN 6 MG ORAL TABLET 1 by mouth every other day 2 WARFARIN SODIUM 33558011926 No Longer Active Mitch Urbina DO Active SIMVASTATIN 40 MG ORAL TABLET 1 tab daily at bedtime SIMVASTATIN 77178593201 Active Maria Rivas RN Active SIMVASTATIN 20 MG ORAL TABLET 1 tab daily at bedtime 2 SIMVASTATIN 88579041523 No Longer Active Mitch Urbina DO Active LOVENOX 100 MG/ML SUBCUTANEOUS SOLUTION One injection twice a da y ENOXAPARIN SODIUM 41300713737 No Longer Active Carmine Yusuf MD Active JANUVIA 100 MG ORAL TABLET 1/2 by mouth every day 2011 SITAGLIPTIN PHOSPHATE 75710120566 No Longer Active Bijal Segal RN Acti ve METFORMIN HCL 500 MG ORAL TABLET 2 by mouth twice daily METFORMIN HCL 66463183306 No Longer Active Renee Oconnor LPN Active COLCRYS 0.6 MG ORAL TABLET 1 po q 6 hours prn gout pain COLCHICINE 25698043519 No Longer Active Camila Reese Active LISINOPRIL 5 MG ORAL TABLET 1 by mouth every day 11/17 LISINOPRIL 18704780044 No Longer Active Nguyen Perez Active KLOR-CON 20 MEQ ORAL PACKET Take one by mouth daily 20 09/10/08 POTASSIUM CHLORIDE 60702758804 No Longer Active Nguyen Perez Active FUROSEMIDE 40 MG ORAL TABLET 1 by mouth daily F UROSEMIDE 56568582049 No Longer Active Nguyen Perez Active PROVIGIL 100 MG ORAL TABLET Take one by mouth daily 20 08/20/04 MODAFINIL 21474628557 No Longer Active Mitch Urbina DO Active BACTRIM DS 800-160 MG ORAL TABLET 1 tab by mouth twice daily 201 10/19/09 TRIMETHOPRIM-SULFAMETHOXAZOLE 98222438397 No Longer Active C alberto Hays MD Active ADULT ASPIRIN LOW STRENGTH 81 MG ORAL TABLET DISINTEGR ATING 1 by mouth every daily ASPIRIN 55542815422 Active Mitch Urbina DO Ac tive BACTRIM DS 800-160 MG ORAL TABLET 1 tab by mouth twice daily 201 10/19/09 BACTRIM DS 800-160 MG ORAL TABLET 726092 TRIMETHOPRIM-SULFAMETHOXAZOLE Inactive PROVIGIL 100 MG ORAL TABLET Take one by mouth daily 08/20/04 PROVIGIL 100 MG ORAL TABLET 770072 MODAFINIL Inactive FUROSEMIDE 40 MG ORAL TABLET 1 by mouth daily FUROSEMIDE 40 MG ORAL TABLET 403396 FUROSEMIDE Inactive KLOR-CON 20 MEQ ORAL PACKET Take one by mouth daily 09/10/08 KLOR- CON 20 MEQ ORAL PACKET 1294881 POTASSIUM CHLORIDE Inactive LISINOPRIL 5 MG ORAL TABLET 1 by mouth every day 11/17 LISINOPRIL 5 MG ORAL TABLET 224123 LISINOPRIL Inactive COLCRYS 0.6 MG ORAL TABLET 1 po q 6 hours prn gout pain COLCRYS 0.6 MG ORAL TABLET 714286 COLCHICINE Inactive JANUVIA 100 MG ORAL TABLET 1/2 by mouth every day 2011 JANUVIA 100 MG ORAL TABLET SITAGLIPTIN PHOSPHATE Inactive SIMVASTATIN 20 MG ORAL TABLET 1 tab daily at bedtime 2 SIMVASTATIN 20 MG ORAL TABLET 883461 SIMVASTATIN Inactive COUMADIN 6 MG ORAL TABLET 1 by mouth every other day 2 COUMADIN 6 MG ORAL TABLET 297958 WARFARIN SODIUM Inactive COUMADIN 5 MG ORAL TABLET 1 by mouth every other day 2 COUMADIN 5 MG ORAL TABLET 041925 WARFARIN SODIUM Inactive LISINOPRIL 20 MG ORAL TABLET 1 tab po at HS LISINOPRIL 20 MG ORAL TABLET 592768 LISINOPRIL Inactive LISINOPRIL-HYDROCHLOROTHIAZIDE 20-12.5 MG ORAL TABLET 1 tab by m outh daily LISINOPRIL-HYDROCHLOROTHIAZIDE 20-12.5 MG ORAL TABLET 309405 LISINOPRIL-HYDROCHLOROTHIAZIDE Inactive POLYTRIM 57506-4.1 UNIT/ML-% OPHTHALMIC SOLUTION 1 rui p in affected eye every 3 hours while awake x 7 days POLYTRIM 1000 0-0.1 UNIT/ML-% OPHTHALMIC SOLUTION 497396 POLYMYXIN B-TRIMETHOPRIM Inactive COUMADIN 4 MG ORAL TABLET 1 tablet daily COUMADIN 4 MG ORAL TABLET 910096 WARFARIN SODIUM Inactive CLONIDINE HCL 0.1 MG ORAL TABLET 1 po bid 7 days, then 1/2 t ab po bid 7 days CLONIDINE HCL 0.1 MG ORAL TABLET 786556 CLONIDIN E HCL Inactive ALLOPURINOL 300 MG ORAL TABLET Take 1 tablet by mouth daily 2012 ALLOPURINOL 300 MG ORAL TABLET 693926 ALLOPURINOL I nactive MECLIZINE HCL 25 MG ORAL TABLET 1 po tid 3 days, then 1/2 ta b tid 3 days MECLIZINE HCL 25 MG ORAL TABLET 458163 MECLIZINE HCL Inactive AMLODIPINE BESYLATE 5 MG ORAL TABLET 1 tablet by mouth daily 201 01/20/04 AMLODIPINE BESYLATE 5 MG ORAL TABLET 825482 AMLODIPINE BESYLATE Inactive KEFLEX 500 MG ORAL CAPSULE 1 po qid K EFLEX 500 MG ORAL CAPSULE 791351 CEPHALEXIN Inactive COLCRYS 0.6 MG ORAL TABLET 1 tab qid prn gout COLCRYS 0.6 MG ORAL TABLET 074864 COLCHICINE Inactive FAMOTIDINE 20 MG ORAL TABLET by mouth twice a day 2017 FAMOTIDINE 20 MG ORAL TABLET 664546 FAMOTIDINE Inactive GLIMEPIRIDE 2 MG ORAL TABLET 1 po BID GLIMEPIRIDE 2 MG ORAL TABLET 032118 GLIMEPIRIDE Inactive AMLODIPINE BESYLATE 5 MG ORAL TABLET 1 tablet by mouth daily 201 05/19/02 AMLODIPINE BESYLATE 5 MG ORAL TABLET 321793 AMLODIPINE BESYLATE Inactive LOVENOX 100 MG/ML SUBCUTANEOUS SOLUTION One injection twice a da y LOVENOX 100 MG/ML SUBCUTANEOUS SOLUTION 981772 ENOXAPAR IN SODIUM Inactive PREDNISONE 20 MG ORAL TABLET 2 tabs daily for 3 days 1 tab d aily for 3 days PREDNISONE 20 MG ORAL TABLET 597402 PREDNISONE Inactive KEFLEX 500 MG ORAL CAPSULE 1 capsule by mouth three times da rocky x10 days KEFLEX 500 MG ORAL CAPSULE 586110 CEPHALEXIN I nactive Advance Directives Directive Description [...] - Chem istry sodium, serum 138 mmol/L 914-530 8991/11/07 potassium, serum 4.5 mmol/L 3.5-5.2 chloride, serum [...] Panel - Chemistry sodium, serum 140 mmol/L 085-121 7508/11/01 carbon dioxide, venous blood 28.6 mmol/L 21.0-32 [...] mg/dL Encounters Code Encounter Date Provider Facility CPT-91579 [id number] Vst-Est Level IV 16:21:[address] [facility] CPT-12773 Level 3 Est. Patient 15:18:36 CDT Becky anderson [facility] CPT-24842 [id number] Vst-Est Level IV 10:06:35 CDT Bru robinson [facility]-89056 [id number] Vst-Est Level IV 10:52:00 OUTDOOR PURSUITS INSTRUCTOR Stephy [facility]rose [facility] CPT-35272 Level 3 Est. Patient 18:25:53 CDT Mitch luis [facility] CPT-57013 Level 3 Est. Patient 19:43:34 CDT Mitch luis [facility] CPT-37771 Level 4 Est. Patient 09:30:18 CDT Mitch luis [facility] CPT-92875 Level 3 Est. Patient 15:10:14 CDT Joe Gomez razell [facility] CPT-02622 Level 3 Est. Patient 15:03:46 CDT Devonsonya Jason kamara [facility]-45050 Level 3 Est. Patient 14:21:06 CDT Mitch Arnol Castellano ee [facility] CPT-65101 Level 3 Est. Patient 14:52:06 CDT Devonsonya Jason kamara [facility]-48005 Level 3 Est. Patient 09:34:30 OUTDOOR PURSUITS INSTRUCTOR Mitch W L ee [facility] CPT-93618 Level 3 Est. Patient 09:37:15 CDT Mitch W L ee [facility]-03788 Level 3 Est. Patient 17:01:00 OUTDOOR PURSUITS INSTRUCTOR Mitch Ambrose L ee [facility] CPT-32996 Level 3 Est. Patient 13:53:19 OUTDOOR PURSUITS INSTRUCTOR Mitch W L janelle [facility] CPT-68115 Level 3 Est. Patient 19:19:37 OUTDOOR PURSUITS INSTRUCTOR Mitch W L ee [facility] CPT-37528 Level 3 Est. Patient 13:25:53 OUTDOOR PURSUITS INSTRUCTOR Tavo toure MD [facility]-05702 Level 3 Est. Patient 18:17:28 CDT Mitch W L ee [facility] CPT-47978 Level 3 Est. Patient 15:22:57 CDT Mitch W L ee [facility]-63672 Level 3 Est. Patient 18:21:50 CDT Mitch W L ee [facility] CPT-07336 Level 3 Est. Patient 18:20:38 CDT Mitch W L ee [facility]-78474 Level 3 Est. Patient 15:37:55 CDT Mitch W L ee [facility] CPT-47620 Level 2 Est. Patient 15:54:44 CDT Carmine benton MD [facility]-99172 Level 3 Est. Patient 21:46:01 OUTDOOR PURSUITS INSTRUCTOR Mitch Arnol Nona luis [facility] CPT-28421 Level 3 Est. Patient 22:15:50 CDT Mitch Arnol Nona luis [facility] CPT-53536 Level 3 Est. Patient 10:48:15 CDT Mitch luis [facility] CPT-46268 Level 3 Est. Patient 23:20:57 CDT Tavo toure MD [facility] CPT-90351 Level 3 Est. Patient 16:26:13 CDT Mitch luis [facility] Procedures Code Procedure Name Date Entry Date Standard Desc ription CPT-66699 Venipuncture Draw Fee 14:46:55 OUTDOOR [employer]SUITS INSTRUCTOR CPT-09726 Venipuncture Draw Fee 08:26:21 CDT CPT-83632 Venous Duplex Left Leg XRAY USE ONLY 10:43:10 CDT CPT-23270 Venipuncture Draw Fee 17:04:55 CDT CPT-11893 Venipuncture Draw Fee 17:20:50 CDT CPT-83150 Venipuncture Draw Fee 18:00:48 CDT CPT-01633 Venipuncture Draw Fee 14:56:20 CDT CPT-JTINJ Asp/Joint Injection 18:47:02 CDT CPT-37924 Venipuncture Draw Fee 09:26:17 CDT CPT-58890 PT/INR - LAB USE ONLY 13:32:49 OUTDOOR [employer]SUITS INSTRUCTOR CPT-08944 Venipuncture Draw Fee 13:32:49 OUTDOOR PURSUITS INSTRUCTOR CPT-62573 PT/INR - LAB USE ONLY 10:34:49 OUTDOOR PURSUITS INSTRUCTOR CPT-88361 Venipuncture Draw Fee 10:34:48 OUTDOOR PURSUITS INSTRUCTOR CPT-00187 PT/INR - LAB USE ONLY 09:22:03 OUTDOOR PURSUITS INSTRUCTOR CPT-87906 Venipuncture Draw Fee 09:22:02 OUTDOOR PURSUITS INSTRUCTOR CPT-97404 Hemoccult IFOBT - LAB USE ONLY 10:27:22 CDT CPT-36539 Venipuncture Draw Fee 08:27:08 CDT CPT-54715 Liver Profile - LAB USE ONLY 08:27:07 CDT 2 CPT-72813 Microalbumin - LAB USE ONLY 08:27:07 CDT 20 25/05/09 CPT-72410 PT/INR - LAB USE ONLY 08:27:07 CDT CPT-97987 HGBA1C - LAB USE ONLY 08:27:07 CDT CPT-60020 CBC - LAB USE ONLY 08:27:07 CDT CPT-62150 Venipuncture Draw Fee 11:09:14 CDT CPT-75944 Venipuncture Draw Fee 08:32:21 OUTDOOR PURSUITS INSTRUCTOR CPT-38648 Venipuncture Draw Fee 09:38:56 OUTDOOR PURSUITS INSTRUCTOR CPT-80383 No Charge Offi Visit 21:36:07 CDT 1 CPT-25749 Venipuncture Draw Fee 10:13:28 OUTDOOR PURSUITS INSTRUCTOR CPT-14953 Venipuncture Draw Fee 08:31:11 CDT CPT-91838 Aspir/Inject Med Joint 18:17:28 CDT CPT-34643 Venipuncture Draw Fee 10:13:30 CDT CPT-74399 Venipuncture Draw Fee 08:31:43 OUTDOOR PURSUITS INSTRUCTOR CPT-JTINJ Joint Injection 18:34:50 CDT CPT-61469 Knee 3V 12:25:09 CDT CPT-42283 Venipuncture Draw Fee 12:15:57 CDT CPT-060 Medical Surveillance Exam 21:31:43 CDT 2011 CPT-60263 Venipuncture Draw Fee 08:32:05 OUTDOOR PURSUITS INSTRUCTOR CPT-OV Office Visit 18:19:06 CDT
--- OUTSIDE RECORDS SUMMARY | 2020-01-18 14:01 | XMS REPORT | Clinical Summary ---
Author Author Admin, Mitch Leon Organization [facility] Address Unknown Phone Unavailable Allergies, Adverse Reactions, [...] Mitch Urbina DO EDEMA ICD-782.3 Inactive Mitch Uribna DO DIZZINESS ICD-780.4 Inactive Mitch Urbina DO [...] TAKE 1 TABLET DAILY SITAGLIPT IN PHOSPHATE 08640310848 Active Maria Rivas RN Active INVOKANA TABS 100MG TAKE 1 TABLET DAILY CANAGLIFL OZIN 53705037641 Active Maria Rivas RN Active AMLODIPINE BESYLATE 5 MG ORAL TABLET 1 tablet by mouth daily 201 05/19/02 AMLODIPINE BESYLATE 78015113884 No Longer Active Maria Briones Active WARFARIN TABS 1MG TAKE 2 TABLETS (2 MG) DAILY WITH THE 5 MG TABLET TO EQUAL 7 MG DAILY WARFARIN SODIUM 73805065125 Active Maria Briones Active WARFARIN SODIUM 5 MG TABS TAKE 1 TABLET DAILY W ARFARIN SODIUM 36584465568 Active Allison Anthony APRN-C Active KEFLEX 500 MG ORAL CAPSULE 1 capsule by mouth three times da rocky x10 days CEPHALEXIN 91336149244 No Longer Active Maria landaverde RN Active METOPROLOL TARTRATE TABS 50MG TAKE 1 TABLET TWICE A DAY ([facility]) METOPROLOL TARTRATE 33764890225 Active Maria Briones Active DOXAZOSIN MESYLATE 2 MG ORAL TABLET 1 po q day for pr ostate and blood pressure DOXAZOSIN MESYLATE 36718843555 Active Mitch Urbina DO Active LOSARTAN TABS 100MG TAKE 1 TABLET DAILY FOR BLOOD PRESSURE LOSARTAN POTASSIUM 39739848443 Active Maria Rivas RN Active FLUTICASONE PROPIONATE 50 MCG/ACT NASAL SUSPENSION 1 s pray each nostril twice daily for 1 week, then once daily FLUTICASONE [place] OPIONATE 01825942622 Active 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 PREDNISONE 20 MG ORAL TABLET 2 tabs daily for 3 days 1 tab d aily for 3 days PREDNISONE 00242591283 No Longer Active 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 MINOXIDIL 2.5 MG ORAL TABLET 1 tablet twice daily for high b lood pressure MINOXIDIL 38813643252 Active Mitch Urbina DO Ac tive METFORMIN HCL ER 500 MG ORAL TABLET EXTENDED RELEASE 2 4 HOUR 2 tablets by mouth twice daily METFORMIN HCL 77784942138 Active Mitch Urbina DO Active GLIMEPIRIDE 4 MG ORAL TABLET 1 tablet by mouth twice daily f or diabetes GLIMEPIRIDE 52038730743 Active Mitch Urbina DO Active GLIMEPIRIDE 2 MG ORAL TABLET 1 po BID GLIMEPI RIDE 15076596662 No Longer Active Mitch Urbina DO Active PROVIGIL 200 MG ORAL TABLET 1/2 tab po q day MODA FINIL 79525295950 Active Maria Rivas RN Active FAMOTIDINE 20 MG ORAL TABLET by mouth twice a day 2017 FAMOTIDINE 32643285982 No Longer Active Mitch Urbina DO Active COLCRYS 0.6 MG ORAL TABLET 1 tab qid prn gout C OLCHICINE 24690193319 No Longer Active Mitch Urbina DO Active KEFLEX 500 MG ORAL CAPSULE 1 po qid CEPHALEXI N 06447474219 No Longer Active Mitch Urbina DO Active AMLODIPINE BESYLATE 5 MG ORAL TABLET 1 tablet by mouth daily 201 01/20/04 AMLODIPINE BESYLATE 85058440617 No Longer Active Joe fulton APRN Active MITIGARE 0.6 MG ORAL CAPSULE 2 capsules at onset of go ut pain, then take one capsule at 1 hour if symptoms persist. COLCHICINE 59 072646168 Active Mitch Urbina DO Active MECLIZINE HCL 25 MG ORAL TABLET 1 po tid 3 days, then 1/2 ta b tid 3 days MECLIZINE HCL 29420570990 No Longer Active Corey SEGURA Active ALLOPURINOL 300 MG ORAL TABLET Take 1 tablet by mouth daily 2012 ALLOPURINOL 44309133548 No Longer Active Corey SEGURA Active CLONIDINE HCL 0.1 MG ORAL TABLET 1 po bid 7 days, then 1/2 t ab po bid 7 days CLONIDINE HCL 39865536248 No Longer Active Corey SEGURA Active COUMADIN 4 MG ORAL TABLET 1 tablet daily WARFAR IN SODIUM 75022976770 No Longer Active Corey SEGURA Active POLYTRIM 35297-4.1 UNIT/ML-% OPHTHALMIC SOLUTION 1 rui p in affected eye every 3 hours while awake x 7 days POLYMYXIN B-TRIMETHOP RIM 08959695769 No Longer Active Corey SEGURA Active LOSARTAN POTASSIUM-HCTZ 100-12.5 MG ORAL TABLET 1 by m outh daily for high blood pressure LOSARTAN POTASSIUM-HCTZ 30899109806 No Longer A ctive Mitch Urbina DO Active LISINOPRIL-HYDROCHLOROTHIAZIDE 20-12.5 MG ORAL TABLET 1 tab by m outh daily LISINOPRIL-HYDROCHLOROTHIAZIDE 26101120397 No Longer Active Mitch Urbina DO Active LISINOPRIL 20 MG ORAL TABLET 1 tab po at HS LIS INOPRIL 34149161625 No Longer Active Mitch Urbina DO Active COUMADIN 5 MG ORAL TABLET 1 by mouth every other day 2 WARFARIN SODIUM 99896579259 No Longer Active Mitch Urbina DO Active COUMADIN 6 MG ORAL TABLET 1 by mouth every other day 2 WARFARIN SODIUM 10848360748 No Longer Active Mitch Urbina DO Active SIMVASTATIN 40 MG ORAL TABLET 1 tab daily at bedtime SIMVASTATIN 48561403541 Active Maria Rivas RN Active SIMVASTATIN 20 MG ORAL TABLET 1 tab daily at bedtime 2 SIMVASTATIN 98182244619 No Longer Active Mitch Urbina DO Active LOVENOX 100 MG/ML SUBCUTANEOUS SOLUTION One injection twice a da y ENOXAPARIN SODIUM 70515477614 No Longer Active Carmine Yusuf MD Active JANUVIA 100 MG ORAL TABLET 1/2 by mouth every day 2011 SITAGLIPTIN PHOSPHATE 08957663034 No Longer Active Bijal Segal RN Acti ve METFORMIN HCL 500 MG ORAL TABLET 2 by mouth twice daily METFORMIN HCL 89341842923 No Longer Active Renee Oconnor LPN Active COLCRYS 0.6 MG ORAL TABLET 1 po q 6 hours prn gout pain COLCHICINE 06423237509 No Longer Active Camila Reese Active LISINOPRIL 5 MG ORAL TABLET 1 by mouth every day 11/17 LISINOPRIL 35420596195 No Longer Active Nguyen Perez Active KLOR-CON 20 MEQ ORAL PACKET Take one by mouth daily 20 09/10/08 POTASSIUM CHLORIDE 51293589542 No Longer Active Nguyen Perez Active FUROSEMIDE 40 MG ORAL TABLET 1 by mouth daily F UROSEMIDE 97454924496 No Longer Active Nguyen Perez Active PROVIGIL 100 MG ORAL TABLET Take one by mouth daily 20 08/20/04 MODAFINIL 57266440918 No Longer Active Mitch Urbina DO Active BACTRIM DS 800-160 MG ORAL TABLET 1 tab by mouth twice daily 201 10/19/09 TRIMETHOPRIM-SULFAMETHOXAZOLE 43415775644 No Longer Active C alberto Hays MD Active ADULT ASPIRIN LOW STRENGTH 81 MG ORAL TABLET DISINTEGR ATING 1 by mouth every daily ASPIRIN 31833339081 Active Mitch Urbina DO Ac tive BACTRIM DS 800-160 MG ORAL TABLET 1 tab by mouth twice daily 201 10/19/09 BACTRIM DS 800-160 MG ORAL TABLET 626248 TRIMETHOPRIM-SULFAMETHOXAZOLE Inactive PROVIGIL 100 MG ORAL TABLET Take one by mouth daily 08/20/04 PROVIGIL 100 MG ORAL TABLET 543979 MODAFINIL Inactive FUROSEMIDE 40 MG ORAL TABLET 1 by mouth daily FUROSEMIDE 40 MG ORAL TABLET 827945 FUROSEMIDE Inactive KLOR-CON 20 MEQ ORAL PACKET Take one by mouth daily 09/10/08 KLOR- CON 20 MEQ ORAL PACKET 5437237 POTASSIUM CHLORIDE Inactive LISINOPRIL 5 MG ORAL TABLET 1 by mouth every day 11/17 LISINOPRIL 5 MG ORAL TABLET 923220 LISINOPRIL Inactive COLCRYS 0.6 MG ORAL TABLET 1 po q 6 hours prn gout pain COLCRYS 0.6 MG ORAL TABLET 739926 COLCHICINE Inactive JANUVIA 100 MG ORAL TABLET 1/2 by mouth every day 2011 JANUVIA 100 MG ORAL TABLET SITAGLIPTIN PHOSPHATE Inactive SIMVASTATIN 20 MG ORAL TABLET 1 tab daily at bedtime 2 SIMVASTATIN 20 MG ORAL TABLET 920473 SIMVASTATIN Inactive COUMADIN 6 MG ORAL TABLET 1 by mouth every other day 2 COUMADIN 6 MG ORAL TABLET 948391 WARFARIN SODIUM Inactive COUMADIN 5 MG ORAL TABLET 1 by mouth every other day 2 COUMADIN 5 MG ORAL TABLET 492849 WARFARIN SODIUM Inactive LISINOPRIL 20 MG ORAL TABLET 1 tab po at HS LISINOPRIL 20 MG ORAL TABLET 371592 LISINOPRIL Inactive LISINOPRIL-HYDROCHLOROTHIAZIDE 20-12.5 MG ORAL TABLET 1 tab by m outh daily LISINOPRIL-HYDROCHLOROTHIAZIDE 20-12.5 MG ORAL TABLET 221928 LISINOPRIL-HYDROCHLOROTHIAZIDE Inactive POLYTRIM 11226-3.1 UNIT/ML-% OPHTHALMIC SOLUTION 1 rui p in affected eye every 3 hours while awake x 7 days POLYTRIM 1000 0-0.1 UNIT/ML-% OPHTHALMIC SOLUTION 767852 POLYMYXIN B-TRIMETHOPRIM Inactive COUMADIN 4 MG ORAL TABLET 1 tablet daily COUMADIN 4 MG ORAL TABLET 457552 WARFARIN SODIUM Inactive CLONIDINE HCL 0.1 MG ORAL TABLET 1 po bid 7 days, then 1/2 t ab po bid 7 days CLONIDINE HCL 0.1 MG ORAL TABLET 859681 CLONIDIN E HCL Inactive ALLOPURINOL 300 MG ORAL TABLET Take 1 tablet by mouth daily 2012 ALLOPURINOL 300 MG ORAL TABLET 747951 ALLOPURINOL I nactive MECLIZINE HCL 25 MG ORAL TABLET 1 po tid 3 days, then 1/2 ta b tid 3 days MECLIZINE HCL 25 MG ORAL TABLET 741744 MECLIZINE HCL Inactive AMLODIPINE BESYLATE 5 MG ORAL TABLET 1 tablet by mouth daily 201 01/20/04 AMLODIPINE BESYLATE 5 MG ORAL TABLET 331300 AMLODIPINE BESYLATE Inactive KEFLEX 500 MG ORAL CAPSULE 1 po qid K EFLEX 500 MG ORAL CAPSULE 155516 CEPHALEXIN Inactive COLCRYS 0.6 MG ORAL TABLET 1 tab qid prn gout COLCRYS 0.6 MG ORAL TABLET 085500 COLCHICINE Inactive FAMOTIDINE 20 MG ORAL TABLET by mouth twice a day 2017 FAMOTIDINE 20 MG ORAL TABLET 209802 FAMOTIDINE Inactive GLIMEPIRIDE 2 MG ORAL TABLET 1 po BID GLIMEPIRIDE 2 MG ORAL TABLET 877920 GLIMEPIRIDE Inactive AMLODIPINE BESYLATE 5 MG ORAL TABLET 1 tablet by mouth daily 201 05/19/02 AMLODIPINE BESYLATE 5 MG ORAL TABLET 424481 AMLODIPINE BESYLATE Inactive LOVENOX 100 MG/ML SUBCUTANEOUS SOLUTION One injection twice a da y LOVENOX 100 MG/ML SUBCUTANEOUS SOLUTION 884562 ENOXAPAR IN SODIUM Inactive PREDNISONE 20 MG ORAL TABLET 2 tabs daily for 3 days 1 tab d aily for 3 days PREDNISONE 20 MG ORAL TABLET 296002 PREDNISONE Inactive KEFLEX 500 MG ORAL CAPSULE 1 capsule by mouth three times da rocky x10 days KEFLEX 500 MG ORAL CAPSULE 745002 CEPHALEXIN I nactive Advance Directives Directive Description [...] - Chem istry sodium, serum 138 mmol/L 367-265 2637/11/07 potassium, serum 4.5 mmol/L 3.5-5.2 chloride, serum [...] Panel - Chemistry sodium, serum 140 mmol/L 676-873 0329/11/01 carbon dioxide, venous blood 28.6 mmol/L 21.0-32 [...] mg/dL Encounters Code Encounter Date Provider Facility CPT-64339 [id number] Vst-Est Level IV 16:21:22 CDT Stephy Ambrose [facility] CPT-74070 Level 3 Est. Patient 15:18:36 CDT Becky anderson [facility] CPT-86698 [id number] Vst-Est Level IV 10:06:35 CDT Bru robinson Ambrose [facility]-15932 [id number] Vst-Est Level IV 10:52:00 ELECTRIC MOTOR ANALYST Stephy Ambrose [facility] CPT-96907 Level 3 Est. Patient 18:25:53 CDT Mtich luis [facility] CPT-27785 Level 3 Est. Patient 19:43:34 CDT Mitch luis [facility] CPT-13842 Level 4 Est. Patient 09:30:18 CDT Mitch luis [facility] CPT-31936 Level 3 Est. Patient 15:10:14 CDT Joe Gomez razell [facility] CPT-21925 Level 3 Est. Patient 15:03:46 CDT Devonsonya Jason kamara [facility]-71877 Level 3 Est. Patient 14:21:06 CDT Mitch Arnol Castellano ee [facility] CPT-57224 Level 3 Est. Patient 14:52:06 CDT Devonsonya Jason kamara [facility]-32466 Level 3 Est. Patient 09:34:30 ELECTRIC MOTOR ANALYST Mitch W L ee [facility] CPT-47196 Level 3 Est. Patient 09:37:15 CDT Mitch W L ee [facility]-87794 Level 3 Est. Patient 17:01:00 ELECTRIC MOTOR ANALYST Mitch Ambrose L ee [facility] CPT-30604 Level 3 Est. Patient 13:53:19 ELECTRIC MOTOR ANALYST Mitch W L janelle [facility] CPT-06346 Level 3 Est. Patient 19:19:37 ELECTRIC MOTOR ANALYST Mitch W L ee [facility] CPT-74811 Level 3 Est. Patient 13:25:53 ELECTRIC MOTOR ANALYST Tavo toure MD [facility]-84923 Level 3 Est. Patient 18:17:28 CDT Mitch W L ee [facility] CPT-75542 Level 3 Est. Patient 15:22:57 CDT Mitch W L ee [facility]-11240 Level 3 Est. Patient 18:21:50 CDT Mitch W L ee [facility] CPT-41852 Level 3 Est. Patient 18:20:38 CDT Mitch W L ee [facility]-31723 Level 3 Est. Patient 15:37:55 CDT Mitch W L ee [facility] CPT-37678 Level 2 Est. Patient 15:54:44 CDT Carmine benton MD [facility]-24557 Level 3 Est. Patient 21:46:01 ELECTRIC MOTOR ANALYST Mitch Arnol Nona luis [facility] CPT-50144 Level 3 Est. Patient 22:15:50 CDT Mitch Arnol Nona luis [facility] CPT-84636 Level 3 Est. Patient 10:48:15 CDT Mitch luis [facility] CPT-87583 Level 3 Est. Patient 23:20:57 CDT Tavo toure MD [facility] CPT-14159 Level 3 Est. Patient 16:26:13 CDT Mitch luis [facility] Procedures Code Procedure Name Date Entry Date Standard Desc ription CPT-28587 Venipuncture Draw Fee 14:46:55 ELECTRIC MOTOR ANALYST CPT-09577 Venipuncture Draw Fee 08:26:21 CDT CPT-25687 Venous Duplex Left Leg XRAY USE ONLY 10:43:10 CDT CPT-36521 Venipuncture Draw Fee 17:04:55 CDT CPT-75473 Venipuncture Draw Fee 17:20:50 CDT CPT-37308 Venipuncture Draw Fee 18:00:48 CDT CPT-18324 Venipuncture Draw Fee 14:56:20 CDT CPT-JTINJ Asp/Joint Injection 18:47:02 CDT CPT-36894 Venipuncture Draw Fee 09:26:17 CDT CPT-91675 PT/INR - LAB USE ONLY 13:32:49 ELECTRIC MOTOR ANALYST CPT-61179 Venipuncture Draw Fee 13:32:49 ELECTRIC MOTOR ANALYST CPT-26317 PT/INR - LAB USE ONLY 10:34:49 ELECTRIC MOTOR ANALYST CPT-46339 Venipuncture Draw Fee 10:34:48 ELECTRIC MOTOR ANALYST CPT-93002 PT/INR - LAB USE ONLY 09:22:03 ELECTRIC MOTOR ANALYST CPT-05663 Venipuncture Draw Fee 09:22:02 ELECTRIC MOTOR ANALYST CPT-09774 Hemoccult IFOBT - LAB USE ONLY 10:27:22 CDT CPT-09618 Venipuncture Draw Fee 08:27:08 CDT CPT-43542 Liver Profile - LAB USE ONLY 08:27:07 CDT 2 CPT-10752 Microalbumin - LAB USE ONLY 08:27:07 CDT 20 25/05/09 CPT-66312 PT/INR - LAB USE ONLY 08:27:07 CDT CPT-71727 HGBA1C - LAB USE ONLY 08:27:07 CDT CPT-48106 CBC - LAB USE ONLY 08:27:07 CDT CPT-64724 Venipuncture Draw Fee 11:09:14 CDT CPT-19728 Venipuncture Draw Fee 08:32:21 ELECTRIC MOTOR ANALYST CPT-08531 Venipuncture Draw Fee 09:38:56 ELECTRIC MOTOR ANALYST CPT-57270 No Charge Offi Visit 21:36:07 CDT 1 CPT-78798 Venipuncture Draw Fee 10:13:28 ELECTRIC MOTOR ANALYST CPT-15442 Venipuncture Draw Fee 08:31:11 CDT CPT-13366 Aspir/Inject Med Joint 18:17:28 CDT CPT-84427 Venipuncture Draw Fee 10:13:30 CDT CPT-53322 Venipuncture Draw Fee 08:31:43 ELECTRIC MOTOR ANALYST CPT-JTINJ Joint Injection 18:34:50 CDT CPT-07352 Knee 3V 12:25:09 CDT CPT-50093 Venipuncture Draw Fee 12:15:57 CDT CPT-060 Medical Surveillance Exam 21:31:43 CDT 2011 CPT-21461 Venipuncture Draw Fee 08:32:05 ELECTRIC MOTOR ANALYST CPT-OV Office Visit 18:19:06 CDT
--- OUTSIDE RECORDS SUMMARY | 2020-01-18 14:01 | XMS REPORT | Clinical Summary ---
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 Carmine benton MD Benign neoplasm of colon Coumadin therapy V58.61 Active Domi Rivera MA Long-term (current) use of anticoagulants Valve replacement V43.3 Active Mtich Urbina DO Heart valve replaced by other [...] TAKE 1 TABLET DAILY SITAGLIPT IN PHOSPHATE 03683228823 Active Maria Rivas RN Active INVOKANA TABS 100MG TAKE 1 TABLET DAILY CANAGLIFL OZIN 95840025312 Active Maria Rivas RN Active AMLODIPINE BESYLATE 5 MG ORAL TABLET 1 tablet by mouth daily 201 05/19/02 AMLODIPINE BESYLATE 49497833042 No Longer Active Maria Briones Active WARFARIN TABS 1MG TAKE 2 TABLETS (2 MG) DAILY WITH THE 5 MG TABLET TO EQUAL 7 MG DAILY WARFARIN SODIUM 05623474385 Active Maria Briones Active WARFARIN SODIUM 5 MG TABS TAKE 1 TABLET DAILY W ARFARIN SODIUM 44765244362 Active Allison Anthony APRN-C Active KEFLEX 500 MG ORAL CAPSULE 1 capsule by mouth three times da rocky x10 days CEPHALEXIN 85113267328 No Longer Active Maria landaverde RN Active METOPROLOL TARTRATE TABS 50MG TAKE 1 TABLET TWICE A DAY ([facility]) METOPROLOL TARTRATE 16384349659 Active Maria Briones Active DOXAZOSIN MESYLATE 2 MG ORAL TABLET 1 po q day for pr ostate and blood pressure DOXAZOSIN MESYLATE 31354353376 Active Mitch Urbina DO Active LOSARTAN TABS 100MG TAKE 1 TABLET DAILY FOR BLOOD PRESSURE LOSARTAN POTASSIUM 67230582848 Active Maria Rivas RN Active FLUTICASONE PROPIONATE 50 MCG/ACT NASAL SUSPENSION 1 s pray each nostril twice daily for 1 week, then once daily FLUTICASONE ME OPIONATE 91152888644 Active Becky Sell FURNITURE BUILDER Active PREDNISONE 20 MG ORAL TABLET 2 tabs daily for 3 days 1 tab d aily for 3 days PREDNISONE 95704732571 No Longer Active Becky Sell FURNITURE BUILDER Active MINOXIDIL 2.5 MG ORAL TABLET 1 tablet twice daily for high b lood pressure MINOXIDIL 36307452671 Active Mitch Urbina DO Ac tive METFORMIN HCL ER 500 MG ORAL TABLET EXTENDED RELEASE 2 4 HOUR 2 tablets by mouth twice daily METFORMIN HCL 66181233448 Active Mitch Urbina DO Active GLIMEPIRIDE 4 MG ORAL TABLET 1 tablet by mouth twice daily f or diabetes GLIMEPIRIDE 26590174040 Active Mitch Urbina DO Active GLIMEPIRIDE 2 MG ORAL TABLET 1 po BID GLIMEPI RIDE 92233196412 No Longer Active Mitch Urbina DO Active PROVIGIL 200 MG ORAL TABLET 1/2 tab po q day MODA FINIL 12077440283 Active Maria Rivas RN Active FAMOTIDINE 20 MG ORAL TABLET by mouth twice a day 2017 FAMOTIDINE 20047155202 No Longer Active Mitch Urbina DO Active COLCRYS 0.6 MG ORAL TABLET 1 tab qid prn gout C OLCHICINE 90391511319 No Longer Active Mitch Urbina DO Active KEFLEX 500 MG ORAL CAPSULE 1 po qid CEPHALEXI N 24127623240 No Longer Active Mitch Urbina DO Active AMLODIPINE BESYLATE 5 MG ORAL TABLET 1 tablet by mouth daily 201 01/20/04 AMLODIPINE BESYLATE 69185090540 No Longer Active Joe fulton APRN Active MITIGARE 0.6 MG ORAL CAPSULE 2 capsules at onset of go ut pain, then take one capsule at 1 hour if symptoms persist. COLCHICINE 59 233383393 Active Mitch Urbina DO Active MECLIZINE HCL 25 MG ORAL TABLET 1 po tid 3 days, then 1/2 ta b tid 3 days MECLIZINE HCL 25278816999 No Longer Active Corey SEGURA Active ALLOPURINOL 300 MG ORAL TABLET Take 1 tablet by mouth daily 2012 ALLOPURINOL 70392094742 No Longer Active Corey SEGURA Active CLONIDINE HCL 0.1 MG ORAL TABLET 1 po bid 7 days, then 1/2 t ab po bid 7 days CLONIDINE HCL 82654194416 No Longer Active Corey SEGURA Active COUMADIN 4 MG ORAL TABLET 1 tablet daily WARFAR IN SODIUM 83705565530 No Longer Active Corey SEGURA Active POLYTRIM 65344-2.1 UNIT/ML-% OPHTHALMIC SOLUTION 1 rui p in affected eye every 3 hours while awake x 7 days POLYMYXIN B-TRIMETHOP RIM 72420268439 No Longer Active Corey SEGURA Active LOSARTAN POTASSIUM-HCTZ 100-12.5 MG ORAL TABLET 1 by m outh daily for high blood pressure LOSARTAN POTASSIUM-HCTZ 47044937762 No Longer A ctive Mitch Urbina DO Active LISINOPRIL-HYDROCHLOROTHIAZIDE 20-12.5 MG ORAL TABLET 1 tab by m outh daily LISINOPRIL-HYDROCHLOROTHIAZIDE 07258070274 No Longer Active Mitch Urbina DO Active LISINOPRIL 20 MG ORAL TABLET 1 tab po at HS LIS INOPRIL 95942425363 No Longer Active Mitch Urbina DO Active COUMADIN 5 MG ORAL TABLET 1 by mouth every other day 2 WARFARIN SODIUM 02490219463 No Longer Active Mitch Urbina DO Active COUMADIN 6 MG ORAL TABLET 1 by mouth every other day 2 WARFARIN SODIUM 71855986379 No Longer Active Mitch Urbina DO Active SIMVASTATIN 40 MG ORAL TABLET 1 tab daily at bedtime SIMVASTATIN 60442903340 Active Maria Rivas RN Active SIMVASTATIN 20 MG ORAL TABLET 1 tab daily at bedtime 2 SIMVASTATIN 49099268256 No Longer Active Mitch Urbina DO Active LOVENOX 100 MG/ML SUBCUTANEOUS SOLUTION One injection twice a da y ENOXAPARIN SODIUM 81457098427 No Longer Active Carmine Yusuf MD Active JANUVIA 100 MG ORAL TABLET 1/2 by mouth every day 2011 SITAGLIPTIN PHOSPHATE 68595398716 No Longer Active Bijal Segal RN Acti ve METFORMIN HCL 500 MG ORAL TABLET 2 by mouth twice daily METFORMIN HCL 29994095547 No Longer Active Renee Oconnor LPN Active COLCRYS 0.6 MG ORAL TABLET 1 po q 6 hours prn gout pain COLCHICINE 83709881768 No Longer Active Camila Reese Active LISINOPRIL 5 MG ORAL TABLET 1 by mouth every day 11/17 LISINOPRIL 43195622928 No Longer Active Nguyen Perez Active KLOR-CON 20 MEQ ORAL PACKET Take one by mouth daily 20 09/10/08 POTASSIUM CHLORIDE 03293771238 No Longer Active Nguyen Perez Active FUROSEMIDE 40 MG ORAL TABLET 1 by mouth daily F UROSEMIDE 29846223537 No Longer Active Nguyen Perez Active PROVIGIL 100 MG ORAL TABLET Take one by mouth daily 20 08/20/04 MODAFINIL 54038562554 No Longer Active Mitch Urbina DO Active BACTRIM DS 800-160 MG ORAL TABLET 1 tab by mouth twice daily 201 10/19/09 TRIMETHOPRIM-SULFAMETHOXAZOLE 16067140798 No Longer Active C alberto Hays MD Active ADULT ASPIRIN LOW STRENGTH 81 MG ORAL TABLET DISINTEGR ATING 1 by mouth every daily ASPIRIN 71874874473 Active Mitch Urbina DO Ac tive BACTRIM DS 800-160 MG ORAL TABLET 1 tab by mouth twice daily 201 10/19/09 BACTRIM DS 800-160 MG ORAL TABLET 177768 TRIMETHOPRIM-SULFAMETHOXAZOLE Inactive PROVIGIL 100 MG ORAL TABLET Take one by mouth daily 08/20/04 PROVIGIL 100 MG ORAL TABLET 836291 MODAFINIL Inactive FUROSEMIDE 40 MG ORAL TABLET 1 by mouth daily FUROSEMIDE 40 MG ORAL TABLET 077958 FUROSEMIDE Inactive KLOR-CON 20 MEQ ORAL PACKET Take one by mouth daily 09/10/08 KLOR- CON 20 MEQ ORAL PACKET 6658491 POTASSIUM CHLORIDE Inactive LISINOPRIL 5 MG ORAL TABLET 1 by mouth every day 11/17 LISINOPRIL 5 MG ORAL TABLET 989557 LISINOPRIL Inactive COLCRYS 0.6 MG ORAL TABLET 1 po q 6 hours prn gout pain COLCRYS 0.6 MG ORAL TABLET 077334 COLCHICINE Inactive JANUVIA 100 MG ORAL TABLET 1/2 by mouth every day 2011 JANUVIA 100 MG ORAL TABLET SITAGLIPTIN PHOSPHATE Inactive SIMVASTATIN 20 MG ORAL TABLET 1 tab daily at bedtime 2 SIMVASTATIN 20 MG ORAL TABLET 982786 SIMVASTATIN Inactive COUMADIN 6 MG ORAL TABLET 1 by mouth every other day 2 COUMADIN 6 MG ORAL TABLET 116870 WARFARIN SODIUM Inactive COUMADIN 5 MG ORAL TABLET 1 by mouth every other day 2 COUMADIN 5 MG ORAL TABLET 699573 WARFARIN SODIUM Inactive LISINOPRIL 20 MG ORAL TABLET 1 tab po at HS LISINOPRIL 20 MG ORAL TABLET 463511 LISINOPRIL Inactive LISINOPRIL-HYDROCHLOROTHIAZIDE 20-12.5 MG ORAL TABLET 1 tab by m outh daily LISINOPRIL-HYDROCHLOROTHIAZIDE 20-12.5 MG ORAL TABLET 711682 LISINOPRIL-HYDROCHLOROTHIAZIDE Inactive POLYTRIM 14102-2.1 UNIT/ML-% OPHTHALMIC SOLUTION 1 rui p in affected eye every 3 hours while awake x 7 days POLYTRIM 1000 0-0.1 UNIT/ML-% OPHTHALMIC SOLUTION 807726 POLYMYXIN B-TRIMETHOPRIM Inactive COUMADIN 4 MG ORAL TABLET 1 tablet daily COUMADIN 4 MG ORAL TABLET 920296 WARFARIN SODIUM Inactive CLONIDINE HCL 0.1 MG ORAL TABLET 1 po bid 7 days, then 1/2 t ab po bid 7 days CLONIDINE HCL 0.1 MG ORAL TABLET 133994 CLONIDIN E HCL Inactive ALLOPURINOL 300 MG ORAL TABLET Take 1 tablet by mouth daily 2012 ALLOPURINOL 300 MG ORAL TABLET 608716 ALLOPURINOL I nactive MECLIZINE HCL 25 MG ORAL TABLET 1 po tid 3 days, then 1/2 ta b tid 3 days MECLIZINE HCL 25 MG ORAL TABLET 446239 MECLIZINE HCL Inactive AMLODIPINE BESYLATE 5 MG ORAL TABLET 1 tablet by mouth daily 201 01/20/04 AMLODIPINE BESYLATE 5 MG ORAL TABLET 837698 AMLODIPINE BESYLATE Inactive KEFLEX 500 MG ORAL CAPSULE 1 po qid K EFLEX 500 MG ORAL CAPSULE 336537 CEPHALEXIN Inactive COLCRYS 0.6 MG ORAL TABLET 1 tab qid prn gout COLCRYS 0.6 MG ORAL TABLET 289318 COLCHICINE Inactive FAMOTIDINE 20 MG ORAL TABLET by mouth twice a day 2017 FAMOTIDINE 20 MG ORAL TABLET 096100 FAMOTIDINE Inactive GLIMEPIRIDE 2 MG ORAL TABLET 1 po BID GLIMEPIRIDE 2 MG ORAL TABLET 490745 GLIMEPIRIDE Inactive AMLODIPINE BESYLATE 5 MG ORAL TABLET 1 tablet by mouth daily 201 05/19/02 AMLODIPINE BESYLATE 5 MG ORAL TABLET 294807 AMLODIPINE BESYLATE Inactive LOVENOX 100 MG/ML SUBCUTANEOUS SOLUTION One injection twice a da y LOVENOX 100 MG/ML SUBCUTANEOUS SOLUTION 670371 ENOXAPAR IN SODIUM Inactive PREDNISONE 20 MG ORAL TABLET 2 tabs daily for 3 days 1 tab d aily for 3 days PREDNISONE 20 MG ORAL TABLET 340607 PREDNISONE Inactive KEFLEX 500 MG ORAL CAPSULE 1 capsule by mouth three times da rocky x10 days KEFLEX 500 MG ORAL CAPSULE 793632 CEPHALEXIN I nactive Advance Directives Directive Description [...] - Chem istry sodium, serum 138 mmol/L 615-133 7514/11/07 potassium, serum 4.5 mmol/L 3.5-5.2 chloride, serum [...] Panel - Chemistry sodium, serum 140 mmol/L 214-332 0470/11/01 carbon dioxide, venous blood 28.6 mmol/L 21.0-32 [...] mg/dL Encounters Code Encounter Date Provider Facility CPT-34333 [id number] Vst-Est Level IV 16:21:22 CDT Stephy Ambrose [facility] CPT-97587 Level 3 Est. Patient 15:18:36 CDT Becky anderson [facility] CPT-06228 [id number] Vst-Est Level IV 10:06:35 CDT Bru robinson Ambrose [facility]-71272 02407-Dgz Vst-Est Level IV 10:52:00 KISS MIXER Stephy Ambrose [facility] CPT-21865 Level 3 Est. Patient 18:25:53 CDT Mitch luis [facility] [address] CPT-27345 Level 3 Est. Patient 19:43:34 CDT Mitch luis [facility] [address] CPT-45465 Level 4 Est. Patient 09:30:18 CDT Mitch luis [facility] [address] CPT-04413 Level 3 Est. Patient 15:10:14 CDT Joe Gomez razell [facility] CPT-75858 Level 3 Est. Patient 15:03:46 CDT Devonsonya Jason kamara [facility]-89506 Level 3 Est. Patient 14:21:06 CDT Mitch Arnol Castellano ee [facility] [address] CPT-83440 Level 3 Est. Patient 14:52:06 CDT Devonsonya Jason kamara [facility]-95345 Level 3 Est. Patient 09:34:30 KISS MIXER Mitch W L ee [facility] [address] CPT-00383 Level 3 Est. Patient 09:37:15 CDT Mitch W L ee [facility]-02294 Level 3 Est. Patient 17:01:00 KISS MIXER Mitch Ambrose L ee [facility] CPT-28821 Level 3 Est. Patient 13:53:19 KISS MIXER Mitch W L janelle [facility] CPT-61090 Level 3 Est. Patient 19:19:37 KISS MIXER Mitch W L ee [facility] CPT-25803 Level 3 Est. Patient 13:25:53 KISS MIXER Tavo toure MD [facility]-10426 Level 3 Est. Patient 18:17:28 CDT Mitch W L ee [facility] CPT-13499 Level 3 Est. Patient 15:22:57 CDT Mitch W L ee [facility]-18003 Level 3 Est. Patient 18:21:50 CDT Mitch W L ee [facility] [address] CPT-72663 Level 3 Est. Patient 18:20:38 CDT Mitch W L ee [facility]-53097 Level 3 Est. Patient 15:37:55 CDT Mitch W L ee [facility] CPT-19820 Level 2 Est. Patient 15:54:44 CDT Carmine benton MD [facility]-25464 Level 3 Est. Patient 21:46:01 KISS MIXER Mitch Arnol Nona luis [facility] CPT-24454 Level 3 Est. Patient 22:15:50 CDT Mitch Arnol Nona luis [facility] CPT-63853 Level 3 Est. Patient 10:48:15 CDT Mitch luis [facility] CPT-71624 Level 3 Est. Patient 23:20:57 CDT Tavo toure MD [facility] CPT-87581 Level 3 Est. Patient 16:26:13 CDT Mitch luis [facility] Procedures Code Procedure Name Date Entry Date Standard Desc ription CPT-88950 Venipuncture Draw Fee 14:46:55 KISS MIXER CPT-06796 Venipuncture Draw Fee 08:26:21 CDT CPT-41656 Venous Duplex Left Leg XRAY USE ONLY 10:43:10 CDT CPT-86772 Venipuncture Draw Fee 17:04:55 CDT CPT-91154 Venipuncture Draw Fee 17:20:50 CDT CPT-39894 Venipuncture Draw Fee 18:00:48 CDT CPT-27921 Venipuncture Draw Fee 14:56:20 CDT CPT-JTINJ Asp/Joint Injection 18:47:02 CDT CPT-28054 Venipuncture Draw Fee 09:26:17 CDT CPT-46455 PT/INR - LAB USE ONLY 13:32:49 KISS MIXER CPT-12298 Venipuncture Draw Fee 13:32:49 KISS MIXER CPT-94501 PT/INR - LAB USE ONLY 10:34:49 KISS MIXER CPT-81152 Venipuncture Draw Fee 10:34:48 KISS MIXER CPT-76838 PT/INR - LAB USE ONLY 09:22:03 KISS MIXER CPT-14036 Venipuncture Draw Fee 09:22:02 KISS MIXER CPT-12192 Hemoccult IFOBT - LAB USE ONLY 10:27:22 CDT CPT-44649 Venipuncture Draw Fee 08:27:08 CDT CPT-76943 Liver Profile - LAB USE ONLY 08:27:07 CDT 2 CPT-72596 Microalbumin - LAB USE ONLY 08:27:07 CDT 20 25/05/09 CPT-02198 PT/INR - LAB USE ONLY 08:27:07 CDT CPT-24812 HGBA1C - LAB USE ONLY 08:27:07 CDT CPT-71332 CBC - LAB USE ONLY 08:27:07 CDT CPT-29311 Venipuncture Draw Fee 11:09:14 CDT CPT-90556 Venipuncture Draw Fee 08:32:21 KISS MIXER CPT-39812 Venipuncture Draw Fee 09:38:56 KISS MIXER CPT-88216 No Charge Offi Visit 21:36:07 CDT 1 CPT-89924 Venipuncture Draw Fee 10:13:28 KISS MIXER CPT-66420 Venipuncture Draw Fee 08:31:11 CDT CPT-24719 Aspir/Inject Med Joint 18:17:28 CDT CPT-83161 Venipuncture Draw Fee 10:13:30 CDT CPT-81134 Venipuncture Draw Fee 08:31:43 KISS MIXER CPT-JTINJ Joint Injection 18:34:50 CDT CPT-20856 Knee 3V 12:25:09 CDT CPT-69622 Venipuncture Draw Fee 12:15:57 CDT CPT-060 Medical Surveillance Exam 21:31:43 CDT 2011 CPT-39156 Venipuncture Draw Fee 08:32:05 KISS MIXER CPT-OV Office Visit 18:19:06 CDT
--- OUTSIDE RECORDS SUMMARY | 2020-01-18 14:02 | XMS REPORT | Clinical Summary ---
Author Author Admin, Mitch Leon Organization [facility] [employer] Address Unknown Phone Unavailable Allergies, Adverse Reactions, [...] of gastrointestinal tract REACTIVE HYPOGLYCEMIA 251.2 Resolved Mtich Urbina DO Hypoglycemia, unspecified GOUT, WRIST 274.9 [...] TAKE 1 TABLET DAILY SITAGLIPT IN PHOSPHATE 63192006818 Active Maria Rivas RN Active INVOKANA TABS 100MG TAKE 1 TABLET DAILY CANAGLIFL OZIN 53904834031 Active Maria Rivas RN Active AMLODIPINE BESYLATE 5 MG ORAL TABLET 1 tablet by mouth daily 201 05/19/02 AMLODIPINE BESYLATE 42369301185 No Longer Active Maria Briones Active WARFARIN TABS 1MG TAKE 2 TABLETS (2 MG) DAILY WITH THE 5 MG TABLET TO EQUAL 7 MG DAILY WARFARIN SODIUM 86512054271 Active Maria Briones Active WARFARIN SODIUM 5 MG TABS TAKE 1 TABLET DAILY W ARFARIN SODIUM 87457454702 Active Allison Anthony APRN-C Active KEFLEX 500 MG ORAL CAPSULE 1 capsule by mouth three times da rocky x10 days CEPHALEXIN 69193574950 No Longer Active Maria landaverde RN Active METOPROLOL TARTRATE TABS 50MG TAKE 1 TABLET TWICE A DAY ([facility]) METOPROLOL TARTRATE 53523600634 Active Maria Briones Active DOXAZOSIN MESYLATE 2 MG ORAL TABLET 1 po q day for pr ostate and blood pressure DOXAZOSIN MESYLATE 75813806617 Active Mitch Urbina DO Active LOSARTAN TABS 100MG TAKE 1 TABLET DAILY FOR BLOOD PRESSURE LOSARTAN POTASSIUM 32679926640 Active Maria Rivas RN Active FLUTICASONE PROPIONATE 50 MCG/ACT NASAL SUSPENSION 1 s pray each nostril twice daily for 1 week, then once daily FLUTICASONE RI OPIONATE 93657281859 Active Becky Sell [employer] Active PREDNISONE 20 MG ORAL TABLET 2 tabs daily for 3 days 1 tab d aily for 3 days PREDNISONE 56777342998 No Longer Active Becky Sell [employer] Active MINOXIDIL 2.5 MG ORAL TABLET 1 tablet twice daily for high b lood pressure MINOXIDIL 74572185907 Active Mitch Urbina DO Ac tive METFORMIN HCL ER 500 MG ORAL TABLET EXTENDED RELEASE 2 4 HOUR 2 tablets by mouth twice daily METFORMIN HCL 62107959364 Active Mitch Urbina DO Active GLIMEPIRIDE 4 MG ORAL TABLET 1 tablet by mouth twice daily f or diabetes GLIMEPIRIDE 22382894309 Active Mitch Urbina DO Active GLIMEPIRIDE 2 MG ORAL TABLET 1 po BID GLIMEPI RIDE 73591496782 No Longer Active Mitch Urbina DO Active PROVIGIL 200 MG ORAL TABLET 1/2 tab po q day MODA FINIL 16626672317 Active Maria Rivas RN Active FAMOTIDINE 20 MG ORAL TABLET by mouth twice a day 2017 FAMOTIDINE 93160318914 No Longer Active Mitch Urbina DO Active COLCRYS 0.6 MG ORAL TABLET 1 tab qid prn gout C OLCHICINE 05094190280 No Longer Active Mitch Urbina DO Active KEFLEX 500 MG ORAL CAPSULE 1 po qid CEPHALEXI N 56902373122 No Longer Active Mitch Urbina DO Active AMLODIPINE BESYLATE 5 MG ORAL TABLET 1 tablet by mouth daily 201 01/20/04 AMLODIPINE BESYLATE 36971541320 No Longer Active Joe fulton APRN Active MITIGARE 0.6 MG ORAL CAPSULE 2 capsules at onset of go ut pain, then take one capsule at 1 hour if symptoms persist. COLCHICINE 59 515563472 Active Mitch Urbina DO Active MECLIZINE HCL 25 MG ORAL TABLET 1 po tid 3 days, then 1/2 ta b tid 3 days MECLIZINE HCL 75119209319 No Longer Active Corey SEGURA Active ALLOPURINOL 300 MG ORAL TABLET Take 1 tablet by mouth daily 2012 ALLOPURINOL 79831307773 No Longer Active Corey SEGURA Active CLONIDINE HCL 0.1 MG ORAL TABLET 1 po bid 7 days, then 1/2 t ab po bid 7 days CLONIDINE HCL 07816351958 No Longer Active Corey SEGURA Active COUMADIN 4 MG ORAL TABLET 1 tablet daily WARFAR IN SODIUM 39480821435 No Longer Active Corey SEGURA Active POLYTRIM 49638-9.1 UNIT/ML-% OPHTHALMIC SOLUTION 1 rui p in affected eye every 3 hours while awake x 7 days POLYMYXIN B-TRIMETHOP RIM 69932962904 No Longer Active Corey SEGURA Active LOSARTAN POTASSIUM-HCTZ 100-12.5 MG ORAL TABLET 1 by m outh daily for high blood pressure LOSARTAN POTASSIUM-HCTZ 35078008925 No Longer A ctive Mitch Urbina DO Active LISINOPRIL-HYDROCHLOROTHIAZIDE 20-12.5 MG ORAL TABLET 1 tab by m outh daily LISINOPRIL-HYDROCHLOROTHIAZIDE 26991369564 No Longer Active Mitch Urbina DO Active LISINOPRIL 20 MG ORAL TABLET 1 tab po at HS LIS INOPRIL 58274898920 No Longer Active Mitch Urbina DO Active COUMADIN 5 MG ORAL TABLET 1 by mouth every other day 2 WARFARIN SODIUM 11409616094 No Longer Active Mitch Urbina DO Active COUMADIN 6 MG ORAL TABLET 1 by mouth every other day 2 WARFARIN SODIUM 00114272123 No Longer Active Mitch Urbina DO Active SIMVASTATIN 40 MG ORAL TABLET 1 tab daily at bedtime SIMVASTATIN 09793096257 Active Maria Rivas RN Active SIMVASTATIN 20 MG ORAL TABLET 1 tab daily at bedtime 2 SIMVASTATIN 62185295011 No Longer Active Micth Urbina DO Active LOVENOX 100 MG/ML SUBCUTANEOUS SOLUTION One injection twice a da y ENOXAPARIN SODIUM 22064525050 No Longer Active Carmine Yusuf MD Active JANUVIA 100 MG ORAL TABLET 1/2 by mouth every day 2011 SITAGLIPTIN PHOSPHATE 25895515235 No Longer Active Bijal Segal RN Acti ve METFORMIN HCL 500 MG ORAL TABLET 2 by mouth twice daily METFORMIN HCL 92010053480 No Longer Active Renee Oconnor LPN Active COLCRYS 0.6 MG ORAL TABLET 1 po q 6 hours prn gout pain COLCHICINE 29190909397 No Longer Active Camila Reese Active LISINOPRIL 5 MG ORAL TABLET 1 by mouth every day 11/17 LISINOPRIL 32046095602 No Longer Active Nguyen Perez Active KLOR-CON 20 MEQ ORAL PACKET Take one by mouth daily 20 09/10/08 POTASSIUM CHLORIDE 02969341054 No Longer Active Nguyen Perez Active FUROSEMIDE 40 MG ORAL TABLET 1 by mouth daily F UROSEMIDE 59400633058 No Longer Active Nguyen Perez Active PROVIGIL 100 MG ORAL TABLET Take one by mouth daily 20 08/20/04 MODAFINIL 76660632169 No Longer Active Mitch Urbina DO Active BACTRIM DS 800-160 MG ORAL TABLET 1 tab by mouth twice daily 201 10/19/09 TRIMETHOPRIM-SULFAMETHOXAZOLE 72273785424 No Longer Active C alberto Hays MD Active ADULT ASPIRIN LOW STRENGTH 81 MG ORAL TABLET DISINTEGR ATING 1 by mouth every daily ASPIRIN 55857321668 Active Mitch Urbina DO Ac tive BACTRIM DS 800-160 MG ORAL TABLET 1 tab by mouth twice daily 201 10/19/09 BACTRIM DS 800-160 MG ORAL TABLET 615473 TRIMETHOPRIM-SULFAMETHOXAZOLE Inactive PROVIGIL 100 MG ORAL TABLET Take one by mouth daily 08/20/04 PROVIGIL 100 MG ORAL TABLET 233710 MODAFINIL Inactive FUROSEMIDE 40 MG ORAL TABLET 1 by mouth daily FUROSEMIDE 40 MG ORAL TABLET 739039 FUROSEMIDE Inactive KLOR-CON 20 MEQ ORAL PACKET Take one by mouth daily 09/10/08 KLOR- CON 20 MEQ ORAL PACKET 8327511 POTASSIUM CHLORIDE Inactive LISINOPRIL 5 MG ORAL TABLET 1 by mouth every day 11/17 LISINOPRIL 5 MG ORAL TABLET 384586 LISINOPRIL Inactive COLCRYS 0.6 MG ORAL TABLET 1 po q 6 hours prn gout pain COLCRYS 0.6 MG ORAL TABLET 252669 COLCHICINE Inactive JANUVIA 100 MG ORAL TABLET 1/2 by mouth every day 2011 JANUVIA 100 MG ORAL TABLET SITAGLIPTIN PHOSPHATE Inactive SIMVASTATIN 20 MG ORAL TABLET 1 tab daily at bedtime 2 SIMVASTATIN 20 MG ORAL TABLET 740657 SIMVASTATIN Inactive COUMADIN 6 MG ORAL TABLET 1 by mouth every other day 2 COUMADIN 6 MG ORAL TABLET 399227 WARFARIN SODIUM Inactive COUMADIN 5 MG ORAL TABLET 1 by mouth every other day 2 COUMADIN 5 MG ORAL TABLET 232763 WARFARIN SODIUM Inactive LISINOPRIL 20 MG ORAL TABLET 1 tab po at HS LISINOPRIL 20 MG ORAL TABLET 116931 LISINOPRIL Inactive LISINOPRIL-HYDROCHLOROTHIAZIDE 20-12.5 MG ORAL TABLET 1 tab by m outh daily LISINOPRIL-HYDROCHLOROTHIAZIDE 20-12.5 MG ORAL TABLET 065708 LISINOPRIL-HYDROCHLOROTHIAZIDE Inactive POLYTRIM 14128-6.1 UNIT/ML-% OPHTHALMIC SOLUTION 1 rui p in affected eye every 3 hours while awake x 7 days POLYTRIM 1000 0-0.1 UNIT/ML-% OPHTHALMIC SOLUTION 739104 POLYMYXIN B-TRIMETHOPRIM Inactive COUMADIN 4 MG ORAL TABLET 1 tablet daily COUMADIN 4 MG ORAL TABLET 218475 WARFARIN SODIUM Inactive CLONIDINE HCL 0.1 MG ORAL TABLET 1 po bid 7 days, then 1/2 t ab po bid 7 days CLONIDINE HCL 0.1 MG ORAL TABLET 991982 CLONIDIN E HCL Inactive ALLOPURINOL 300 MG ORAL TABLET Take 1 tablet by mouth daily 2012 ALLOPURINOL 300 MG ORAL TABLET 523907 ALLOPURINOL I nactive MECLIZINE HCL 25 MG ORAL TABLET 1 po tid 3 days, then 1/2 ta b tid 3 days MECLIZINE HCL 25 MG ORAL TABLET 596328 MECLIZINE HCL Inactive AMLODIPINE BESYLATE 5 MG ORAL TABLET 1 tablet by mouth daily 201 01/20/04 AMLODIPINE BESYLATE 5 MG ORAL TABLET 685457 AMLODIPINE BESYLATE Inactive KEFLEX 500 MG ORAL CAPSULE 1 po qid K EFLEX 500 MG ORAL CAPSULE 853041 CEPHALEXIN Inactive COLCRYS 0.6 MG ORAL TABLET 1 tab qid prn gout COLCRYS 0.6 MG ORAL TABLET 683001 COLCHICINE Inactive FAMOTIDINE 20 MG ORAL TABLET by mouth twice a day 2017 FAMOTIDINE 20 MG ORAL TABLET 036608 FAMOTIDINE Inactive GLIMEPIRIDE 2 MG ORAL TABLET 1 po BID GLIMEPIRIDE 2 MG ORAL TABLET 917469 GLIMEPIRIDE Inactive AMLODIPINE BESYLATE 5 MG ORAL TABLET 1 tablet by mouth daily 201 05/19/02 AMLODIPINE BESYLATE 5 MG ORAL TABLET 708909 AMLODIPINE BESYLATE Inactive LOVENOX 100 MG/ML SUBCUTANEOUS SOLUTION One injection twice a da y LOVENOX 100 MG/ML SUBCUTANEOUS SOLUTION 294627 ENOXAPAR IN SODIUM Inactive PREDNISONE 20 MG ORAL TABLET 2 tabs daily for 3 days 1 tab d aily for 3 days PREDNISONE 20 MG ORAL TABLET 899423 PREDNISONE Inactive KEFLEX 500 MG ORAL CAPSULE 1 capsule by mouth three times da rocky x10 days KEFLEX 500 MG ORAL CAPSULE 594156 CEPHALEXIN I nactive Advance Directives Directive Description [...] - Chem istry sodium, serum 138 mmol/L 135-215 4957/11/07 potassium, serum 4.5 mmol/L 3.5-5.2 chloride, serum [...] Panel - Chemistry sodium, serum 140 mmol/L 889-280 6202/11/01 carbon dioxide, venous blood 28.6 mmol/L 21.0-32 [...] mg/dL Encounters Code Encounter Date Provider Facility CPT-03200 [id number] Vst-Est Level IV 16:21:22 CDT Stephy Ambrose [facility] CPT-09475 Level 3 Est. Patient 15:18:36 CDT Becky anderson [facility] CPT-02228 [id number] Vst-Est Level IV 10:06:35 CDT Bru robinson Ambrose [facility]-45119 73810-Jzg Vst-Est Level IV 10:52:00 [employer] Stephy Ambrose [facility] CPT-74469 Level 3 Est. Patient 18:25:[address] [facility] CPT-70017 Level 3 Est. Patient 19:43:[address] [facility] CPT-26153 Level 4 Est. Patient 09:30:[address] [facility] CPT-19210 Level 3 Est. Patient 15:10:14 CDT Joe Gomez razell [facility] CPT-43829 Level 3 Est. Patient 15:03:46 CDT Devonsonya Jason kamara [facility]-94235 Level 3 Est. Patient 14:21:06 CDT Mitch Arnol Castellano ee [facility] CPT-61406 Level 3 Est. Patient 14:52:06 CDT Devonsonya Jason kamara [facility]-16686 Level 3 Est. Patient 09:34:30 [employer] Mitch W L ee [facility] CPT-27482 Level 3 Est. Patient 09:37:15 CDT Mitch W L ee [facility]-51491 Level 3 Est. Patient 17:01:00 [employer] Mitch Ambrose L ee [facility] CPT-02809 Level 3 Est. Patient 13:53:19 [employer] Mitch W L janelle [facility] CPT-17852 Level 3 Est. Patient 19:19:37 [employer] Mitch W L ee [facility] CPT-56109 Level 3 Est. Patient 13:25:53 [employer] Tavo toure MD [facility]-38421 Level 3 Est. Patient 18:17:28 CDT Mitch W L ee [facility] CPT-40595 Level 3 Est. Patient 15:22:57 CDT Mitch W L ee [facility]-71743 Level 3 Est. Patient 18:21:50 CDT Mitch W L ee [facility] CPT-71647 Level 3 Est. Patient 18:20:38 CDT Mitch W L ee [facility]-27637 Level 3 Est. Patient 15:37:55 CDT Mitch W L ee [facility] CPT-13157 Level 2 Est. Patient 15:54:44 CDT Carmine benton MD [facility]-83831 Level 3 Est. Patient 21:46:01 [employer] Mitch Arnol Nona luis [facility] CPT-59652 Level 3 Est. Patient 22:15:50 CDT Mitch Arnol Nona luis [facility] CPT-74293 Level 3 Est. Patient 10:48:15 CDT Mitch luis [facility] CPT-13648 Level 3 Est. Patient 23:20:57 CDT Tavo toure MD [facility] CPT-42947 Level 3 Est. Patient 16:26:13 CDT Mitch luis [facility] Procedures Code Procedure Name Date Entry Date Standard Desc ription CPT-18594 Venipuncture Draw Fee 14:46:55 [employer] CPT-90747 Venipuncture Draw Fee 08:26:21 CDT CPT-55401 Venous Duplex Left Leg XRAY USE ONLY 10:43:10 CDT CPT-44355 Venipuncture Draw Fee 17:04:55 CDT CPT-22477 Venipuncture Draw Fee 17:20:50 CDT CPT-75185 Venipuncture Draw Fee 18:00:48 CDT CPT-52700 Venipuncture Draw Fee 14:56:20 CDT CPT-JTINJ Asp/Joint Injection 18:47:02 CDT CPT-13849 Venipuncture Draw Fee 09:26:17 CDT CPT-34412 PT/INR - LAB USE ONLY 13:32:49 [employer] CPT-81705 Venipuncture Draw Fee 13:32:49 [employer] CPT-64026 PT/INR - LAB USE ONLY 10:34:49 [employer] CPT-27069 Venipuncture Draw Fee 10:34:48 [employer] CPT-98084 PT/INR - LAB USE ONLY 09:22:03 [employer] CPT-22910 Venipuncture Draw Fee 09:22:02 [employer] CPT-42670 Hemoccult IFOBT - LAB USE ONLY 10:27:22 CDT CPT-61218 Venipuncture Draw Fee 08:27:08 CDT CPT-75644 Liver Profile - LAB USE ONLY 08:27:07 CDT 2 CPT-35073 Microalbumin - LAB USE ONLY 08:27:07 CDT 20 25/05/09 CPT-42433 PT/INR - LAB USE ONLY 08:27:07 CDT CPT-04329 HGBA1C - LAB USE ONLY 08:27:07 CDT CPT-44553 CBC - LAB USE ONLY 08:27:07 CDT CPT-75498 Venipuncture Draw Fee 11:09:14 CDT CPT-24053 Venipuncture Draw Fee 08:32:21 [employer] CPT-18172 Venipuncture Draw Fee 09:38:56 [employer] CPT-59162 No Charge Offi Visit 21:36:07 CDT 1 CPT-76368 Venipuncture Draw Fee 10:13:28 [employer] CPT-16539 Venipuncture Draw Fee 08:31:11 CDT CPT-92410 Aspir/Inject Med Joint 18:17:28 CDT CPT-73961 Venipuncture Draw Fee 10:13:30 CDT CPT-21864 Venipuncture Draw Fee 08:31:43 [employer] CPT-JTINJ Joint Injection 18:34:50 CDT CPT-36595 Knee 3V 12:25:09 CDT CPT-83690 Venipuncture Draw Fee 12:15:57 CDT CPT-060 Medical Surveillance Exam 21:31:43 CDT 2011 CPT-30655 Venipuncture Draw Fee 08:32:05 [employer] CPT-OV Office Visit 18:19:06 CDT
--- OUTSIDE RECORDS SUMMARY | 2020-01-18 14:02 | XMS REPORT | Clinical Summary ---
Author Author Admin, Mitch Leon Organization [facility] [employer] Address Unknown Phone Unavailable Allergies, Adverse Reactions, [...] TAKE 1 TABLET DAILY SITAGLIPT IN PHOSPHATE 66919689389 Active Maria Rivas RN Active INVOKANA TABS 100MG TAKE 1 TABLET DAILY CANAGLIFL OZIN 88399312144 Active Maria Rivas RN Active AMLODIPINE BESYLATE 5 MG ORAL TABLET 1 tablet by mouth daily 201 05/19/02 AMLODIPINE BESYLATE 89516588224 No Longer Active Maria Briones Active WARFARIN TABS 1MG TAKE 2 TABLETS (2 MG) DAILY WITH THE 5 MG TABLET TO EQUAL 7 MG DAILY WARFARIN SODIUM 33049457892 Active Maria Briones Active WARFARIN SODIUM 5 MG TABS TAKE 1 TABLET DAILY W ARFARIN SODIUM 18655589391 Active Allison Anthony APRN-C Active KEFLEX 500 MG ORAL CAPSULE 1 capsule by mouth three times da rocky x10 days CEPHALEXIN 59522417690 No Longer Active Maria landaverde RN Active METOPROLOL TARTRATE TABS 50MG TAKE 1 TABLET TWICE A DAY ([facility] WORK) METOPROLOL TARTRATE 81548383498 Active Maria Briones Active DOXAZOSIN MESYLATE 2 MG ORAL TABLET 1 po q day for pr ostate and blood pressure DOXAZOSIN MESYLATE 76483017391 Active Mitch Urbina DO Active LOSARTAN TABS 100MG TAKE 1 TABLET DAILY FOR BLOOD PRESSURE LOSARTAN POTASSIUM 48011575355 Active Maria Rivas RN Active FLUTICASONE PROPIONATE 50 MCG/ACT NASAL SUSPENSION 1 s pray each nostril twice daily for 1 week, then once daily FLUTICASONE GA OPIONATE 29901879146 Active Becky Sell FLIGHT HOSTESS Active PREDNISONE 20 MG ORAL TABLET 2 tabs daily for 3 days 1 tab d aily for 3 days PREDNISONE 86185736018 No Longer Active Becky Sell FLIGHT HOSTESS Active MINOXIDIL 2.5 MG ORAL TABLET 1 tablet twice daily for high b lood pressure MINOXIDIL 53569989268 Active Mitch Urbina DO Ac tive METFORMIN HCL ER 500 MG ORAL TABLET EXTENDED RELEASE 2 4 HOUR 2 tablets by mouth twice daily METFORMIN HCL 89432726213 Active Mitch Urbina DO Active GLIMEPIRIDE 4 MG ORAL TABLET 1 tablet by mouth twice daily f or diabetes GLIMEPIRIDE 63321637156 Active Mitch Urbina DO Active GLIMEPIRIDE 2 MG ORAL TABLET 1 po BID GLIMEPI RIDE 91837530656 No Longer Active Mitch Urbina DO Active PROVIGIL 200 MG ORAL TABLET 1/2 tab po q day MODA FINIL 05565530674 Active Maria Rivas RN Active FAMOTIDINE 20 MG ORAL TABLET by mouth twice a day 2017 FAMOTIDINE 48976852354 No Longer Active Mitch Urbina DO Active COLCRYS 0.6 MG ORAL TABLET 1 tab qid prn gout C OLCHICINE 72403443835 No Longer Active Mitch Urbina DO Active KEFLEX 500 MG ORAL CAPSULE 1 po qid CEPHALEXI N 51108559081 No Longer Active Mitch Urbina DO Active AMLODIPINE BESYLATE 5 MG ORAL TABLET 1 tablet by mouth daily 201 01/20/04 AMLODIPINE BESYLATE 90600127861 No Longer Active Joe fulton APRN Active MITIGARE 0.6 MG ORAL CAPSULE 2 capsules at onset of go ut pain, then take one capsule at 1 hour if symptoms persist. COLCHICINE 59 286250828 Active Mitch Urbina DO Active MECLIZINE HCL 25 MG ORAL TABLET 1 po tid 3 days, then 1/2 ta b tid 3 days MECLIZINE HCL 53893027828 No Longer Active Corey SEGURA Active ALLOPURINOL 300 MG ORAL TABLET Take 1 tablet by mouth daily 2012 ALLOPURINOL 94568411724 No Longer Active Corey SEGURA Active CLONIDINE HCL 0.1 MG ORAL TABLET 1 po bid 7 days, then 1/2 t ab po bid 7 days CLONIDINE HCL 10012244742 No Longer Active Corey SEGURA Active COUMADIN 4 MG ORAL TABLET 1 tablet daily WARFAR IN SODIUM 85488535636 No Longer Active Corey SEGURA Active POLYTRIM 90031-5.1 UNIT/ML-% OPHTHALMIC SOLUTION 1 rui p in affected eye every 3 hours while awake x 7 days POLYMYXIN B-TRIMETHOP RIM 21525264935 No Longer Active Corey SEGURA Active LOSARTAN POTASSIUM-HCTZ 100-12.5 MG ORAL TABLET 1 by m outh daily for high blood pressure LOSARTAN POTASSIUM-HCTZ 99535214191 No Longer A ctive Mitch Urbina DO Active LISINOPRIL-HYDROCHLOROTHIAZIDE 20-12.5 MG ORAL TABLET 1 tab by m outh daily LISINOPRIL-HYDROCHLOROTHIAZIDE 32699015308 No Longer Active Mitch Urbina DO Active LISINOPRIL 20 MG ORAL TABLET 1 tab po at HS LIS INOPRIL 11322061251 No Longer Active Mitch Urbina DO Active COUMADIN 5 MG ORAL TABLET 1 by mouth every other day 2 WARFARIN SODIUM 31231479793 No Longer Active Mitch Urbina DO Active COUMADIN 6 MG ORAL TABLET 1 by mouth every other day 2 WARFARIN SODIUM 64379033979 No Longer Active Mitch Urbina DO Active SIMVASTATIN 40 MG ORAL TABLET 1 tab daily at bedtime SIMVASTATIN 33362891102 Active Maria Rivas RN Active SIMVASTATIN 20 MG ORAL TABLET 1 tab daily at bedtime 2 SIMVASTATIN 96005091231 No Longer Active Mitch Urbina DO Active LOVENOX 100 MG/ML SUBCUTANEOUS SOLUTION One injection twice a da y ENOXAPARIN SODIUM 08814613494 No Longer Active Carmine Yusuf MD Active JANUVIA 100 MG ORAL TABLET 1/2 by mouth every day 2011 SITAGLIPTIN PHOSPHATE 55288303890 No Longer Active Bijal Segal RN Acti ve METFORMIN HCL 500 MG ORAL TABLET 2 by mouth twice daily METFORMIN HCL 79411657197 No Longer Active Renee Oconnor LPN Active COLCRYS 0.6 MG ORAL TABLET 1 po q 6 hours prn gout pain COLCHICINE 06912657831 No Longer Active Camila Reese Active LISINOPRIL 5 MG ORAL TABLET 1 by mouth every day 11/17 LISINOPRIL 59977637296 No Longer Active Nguyen Perez Active KLOR-CON 20 MEQ ORAL PACKET Take one by mouth daily 20 09/10/08 POTASSIUM CHLORIDE 00897970159 No Longer Active Nguyen Perez Active FUROSEMIDE 40 MG ORAL TABLET 1 by mouth daily F UROSEMIDE 68653763596 No Longer Active Nguyen Perez Active PROVIGIL 100 MG ORAL TABLET Take one by mouth daily 20 08/20/04 MODAFINIL 23055953574 No Longer Active Mitch Urbina DO Active BACTRIM DS 800-160 MG ORAL TABLET 1 tab by mouth twice daily 201 10/19/09 TRIMETHOPRIM-SULFAMETHOXAZOLE 49622255562 No Longer Active C alberto Hays MD Active ADULT ASPIRIN LOW STRENGTH 81 MG ORAL TABLET DISINTEGR ATING 1 by mouth every daily ASPIRIN 76613441223 Active Mitch Urbina DO Ac tive BACTRIM DS 800-160 MG ORAL TABLET 1 tab by mouth twice daily 201 10/19/09 BACTRIM DS 800-160 MG ORAL TABLET 585582 TRIMETHOPRIM-SULFAMETHOXAZOLE Inactive PROVIGIL 100 MG ORAL TABLET Take one by mouth daily 08/20/04 PROVIGIL 100 MG ORAL TABLET 956911 MODAFINIL Inactive FUROSEMIDE 40 MG ORAL TABLET 1 by mouth daily FUROSEMIDE 40 MG ORAL TABLET 574500 FUROSEMIDE Inactive KLOR-CON 20 MEQ ORAL PACKET Take one by mouth daily 09/10/08 KLOR- CON 20 MEQ ORAL PACKET 0452839 POTASSIUM CHLORIDE Inactive LISINOPRIL 5 MG ORAL TABLET 1 by mouth every day 11/17 LISINOPRIL 5 MG ORAL TABLET 362114 LISINOPRIL Inactive COLCRYS 0.6 MG ORAL TABLET 1 po q 6 hours prn gout pain COLCRYS 0.6 MG ORAL TABLET 392623 COLCHICINE Inactive JANUVIA 100 MG ORAL TABLET 1/2 by mouth every day 2011 JANUVIA 100 MG ORAL TABLET SITAGLIPTIN PHOSPHATE Inactive SIMVASTATIN 20 MG ORAL TABLET 1 tab daily at bedtime 2 SIMVASTATIN 20 MG ORAL TABLET 273988 SIMVASTATIN Inactive COUMADIN 6 MG ORAL TABLET 1 by mouth every other day 2 COUMADIN 6 MG ORAL TABLET 214805 WARFARIN SODIUM Inactive COUMADIN 5 MG ORAL TABLET 1 by mouth every other day 2 COUMADIN 5 MG ORAL TABLET 840386 WARFARIN SODIUM Inactive LISINOPRIL 20 MG ORAL TABLET 1 tab po at HS LISINOPRIL 20 MG ORAL TABLET 360922 LISINOPRIL Inactive LISINOPRIL-HYDROCHLOROTHIAZIDE 20-12.5 MG ORAL TABLET 1 tab by m outh daily LISINOPRIL-HYDROCHLOROTHIAZIDE 20-12.5 MG ORAL TABLET 893321 LISINOPRIL-HYDROCHLOROTHIAZIDE Inactive POLYTRIM 97269-0.1 UNIT/ML-% OPHTHALMIC SOLUTION 1 rui p in affected eye every 3 hours while awake x 7 days POLYTRIM 1000 0-0.1 UNIT/ML-% OPHTHALMIC SOLUTION 471580 POLYMYXIN B-TRIMETHOPRIM Inactive COUMADIN 4 MG ORAL TABLET 1 tablet daily COUMADIN 4 MG ORAL TABLET 193443 WARFARIN SODIUM Inactive CLONIDINE HCL 0.1 MG ORAL TABLET 1 po bid 7 days, then 1/2 t ab po bid 7 days CLONIDINE HCL 0.1 MG ORAL TABLET 617306 CLONIDIN E HCL Inactive ALLOPURINOL 300 MG ORAL TABLET Take 1 tablet by mouth daily 2012 ALLOPURINOL 300 MG ORAL TABLET 135045 ALLOPURINOL I nactive MECLIZINE HCL 25 MG ORAL TABLET 1 po tid 3 days, then 1/2 ta b tid 3 days MECLIZINE HCL 25 MG ORAL TABLET 701268 MECLIZINE HCL Inactive AMLODIPINE BESYLATE 5 MG ORAL TABLET 1 tablet by mouth daily 201 01/20/04 AMLODIPINE BESYLATE 5 MG ORAL TABLET 248531 AMLODIPINE BESYLATE Inactive KEFLEX 500 MG ORAL CAPSULE 1 po qid K EFLEX 500 MG ORAL CAPSULE 733599 CEPHALEXIN Inactive COLCRYS 0.6 MG ORAL TABLET 1 tab qid prn gout COLCRYS 0.6 MG ORAL TABLET 627634 COLCHICINE Inactive FAMOTIDINE 20 MG ORAL TABLET by mouth twice a day 2017 FAMOTIDINE 20 MG ORAL TABLET 747379 FAMOTIDINE Inactive GLIMEPIRIDE 2 MG ORAL TABLET 1 po BID GLIMEPIRIDE 2 MG ORAL TABLET 913545 GLIMEPIRIDE Inactive AMLODIPINE BESYLATE 5 MG ORAL TABLET 1 tablet by mouth daily 201 05/19/02 AMLODIPINE BESYLATE 5 MG ORAL TABLET 014032 AMLODIPINE BESYLATE Inactive LOVENOX 100 MG/ML SUBCUTANEOUS SOLUTION One injection twice a da y LOVENOX 100 MG/ML SUBCUTANEOUS SOLUTION 711894 ENOXAPAR IN SODIUM Inactive PREDNISONE 20 MG ORAL TABLET 2 tabs daily for 3 days 1 tab d aily for 3 days PREDNISONE 20 MG ORAL TABLET 892936 PREDNISONE Inactive KEFLEX 500 MG ORAL CAPSULE 1 capsule by mouth three times da rocky x10 days KEFLEX 500 MG ORAL CAPSULE 453483 CEPHALEXIN I nactive Advance Directives Directive Description [...] - Chem istry sodium, serum 138 mmol/L 278-661 7337/11/07 potassium, serum 4.5 mmol/L 3.5-5.2 chloride, serum [...] Panel - Chemistry sodium, serum 140 mmol/L 652-151 3238/11/01 carbon dioxide, venous blood 28.6 mmol/L 21.0-32 [...] mg/dL Encounters Code Encounter Date Provider Facility CPT-40748 [id number] Vst-Est Level IV 16:21:22 CDT Stephy Ambrose [facility] CPT-58503 Level 3 Est. Patient 15:18:36 CDT Becky anderson [facility] CPT-37261 [id number] Vst-Est Level IV 10:06:35 CDT Bru robinson [facility]-82869 [id number]-Iun Vst-Est Level IV 10:52:00 BLOOD TESTER Stephy Ambrose [facility] CPT-62972 Level 3 Est. Patient 18:25:53 CDT Mitch luis [facility] CPT-95793 Level 3 Est. Patient 19:43:34 CDT Mitch luis [facility] CPT-32441 Level 4 Est. Patient 09:30:18 CDT Mitch luis [facility] CPT-07857 Level 3 Est. Patient 15:10:14 CDT Joe Gomez razell [facility] CPT-79488 Level 3 Est. Patient 15:03:46 CDT Devonsonya Jason kamara [facility]-59796 Level 3 Est. Patient 14:21:06 CDT Mitch Arnol Castellano ee [facility] CPT-67411 Level 3 Est. Patient 14:52:06 CDT Devonsonya Jason kamara [facility]-58100 Level 3 Est. Patient 09:34:30 BLOOD TESTER Mitch W L ee [facility] CPT-77258 Level 3 Est. Patient 09:37:15 CDT Mitch W L ee [facility]-60622 Level 3 Est. Patient 17:01:00 BLOOD TESTER Mitch Ambrose L ee [facility] CPT-11625 Level 3 Est. Patient 13:53:19 BLOOD TESTER Mitch W L janelle [facility] CPT-58773 Level 3 Est. Patient 19:19:37 BLOOD TESTER Mitch W L ee [facility] CPT-95979 Level 3 Est. Patient 13:25:53 BLOOD TESTER Tavo toure MD [facility]-39446 Level 3 Est. Patient 18:17:28 CDT Mitch W L ee [facility] CPT-57658 Level 3 Est. Patient 15:22:57 CDT Mitch W L ee [facility]-70222 Level 3 Est. Patient 18:21:50 CDT Mitch W L ee [facility] CPT-44784 Level 3 Est. Patient 18:20:38 CDT Mitch W L ee [facility]-96981 Level 3 Est. Patient 15:37:55 CDT Mitch W L ee [facility] CPT-97678 Level 2 Est. Patient 15:54:44 CDT Carmine benton MD [facility]-52035 Level 3 Est. Patient 21:46:01 BLOOD TESTER Mitch Arnol Nona luis [facility] CPT-75483 Level 3 Est. Patient 22:15:50 CDT Mitch Arnol Nona luis [facility] CPT-04757 Level 3 Est. Patient 10:48:15 CDT Mitch luis [facility] CPT-07779 Level 3 Est. Patient 23:20:57 CDT Tavo toure MD [facility] CPT-88696 Level 3 Est. Patient 16:26:13 CDT Mitch luis [facility] Procedures Code Procedure Name Date Entry Date Standard Desc ription CPT-71709 Venipuncture Draw Fee 14:46:55 BLOOD TESTER CPT-09780 Venipuncture Draw Fee 08:26:21 CDT CPT-11227 Venous Duplex Left Leg XRAY USE ONLY 10:43:10 CDT CPT-74296 Venipuncture Draw Fee 17:04:55 CDT CPT-02243 Venipuncture Draw Fee 17:20:50 CDT CPT-03830 Venipuncture Draw Fee 18:00:48 CDT CPT-02896 Venipuncture Draw Fee 14:56:20 CDT CPT-JTINJ Asp/Joint Injection 18:47:02 CDT CPT-09043 Venipuncture Draw Fee 09:26:17 CDT CPT-17465 PT/INR - LAB USE ONLY 13:32:49 BLOOD TESTER CPT-23785 Venipuncture Draw Fee 13:32:49 BLOOD TESTER CPT-70584 PT/INR - LAB USE ONLY 10:34:49 BLOOD TESTER CPT-87188 Venipuncture Draw Fee 10:34:48 BLOOD TESTER CPT-12430 PT/INR - LAB USE ONLY 09:22:03 BLOOD TESTER CPT-56854 Venipuncture Draw Fee 09:22:02 BLOOD TESTER CPT-31883 Hemoccult IFOBT - LAB USE ONLY 10:27:22 CDT CPT-19623 Venipuncture Draw Fee 08:27:08 CDT CPT-39708 Liver Profile - LAB USE ONLY 08:27:07 CDT 2 CPT-56126 Microalbumin - LAB USE ONLY 08:27:07 CDT 20 25/05/09 CPT-58865 PT/INR - LAB USE ONLY 08:27:07 CDT CPT-19565 HGBA1C - LAB USE ONLY 08:27:07 CDT CPT-17873 CBC - LAB USE ONLY 08:27:07 CDT CPT-74210 Venipuncture Draw Fee 11:09:14 CDT CPT-07117 Venipuncture Draw Fee 08:32:21 BLOOD TESTER CPT-85738 Venipuncture Draw Fee 09:38:56 BLOOD TESTER CPT-04649 No Charge Offi Visit 21:36:07 CDT 1 CPT-77755 Venipuncture Draw Fee 10:13:28 BLOOD TESTER CPT-79934 Venipuncture Draw Fee 08:31:11 CDT CPT-65302 Aspir/Inject Med Joint 18:17:28 CDT CPT-00047 Venipuncture Draw Fee 10:13:30 CDT CPT-68127 Venipuncture Draw Fee 08:31:43 BLOOD TESTER CPT-JTINJ Joint Injection 18:34:50 CDT CPT-83916 Knee 3V 12:25:09 CDT CPT-52055 Venipuncture Draw Fee 12:15:57 CDT CPT-060 Medical Surveillance Exam 21:31:43 CDT 2011 CPT-20046 Venipuncture Draw Fee 08:32:05 BLOOD TESTER CPT-OV Office Visit 18:19:06 CDT
--- OUTSIDE RECORDS SUMMARY | 2020-01-18 14:02 | XMS REPORT | Clinical Summary ---
Author Author Admin, Mitch Leon Organization [facility] Address Unknown Phone Unavailable Allergies, Adverse Reactions, [...] TAKE 1 TABLET DAILY SITAGLIPT IN PHOSPHATE 91033713187 Active Maria Rivas RN Active INVOKANA TABS 100MG TAKE 1 TABLET DAILY CANAGLIFL OZIN 98545074150 Active Maria Rivas RN Active AMLODIPINE BESYLATE 5 MG ORAL TABLET 1 tablet by mouth daily 201 05/19/02 AMLODIPINE BESYLATE 96723613470 No Longer Active Maria Briones Active WARFARIN TABS 1MG TAKE 2 TABLETS (2 MG) DAILY WITH THE 5 MG TABLET TO EQUAL 7 MG DAILY WARFARIN SODIUM 32393051639 Active Maria Briones Active WARFARIN SODIUM 5 MG TABS TAKE 1 TABLET DAILY W ARFARIN SODIUM 32499871414 Active Allison Anthony APRN-C Active KEFLEX 500 MG ORAL CAPSULE 1 capsule by mouth three times da rocky x10 days CEPHALEXIN 40480251893 No Longer Active Maria landaverde RN Active METOPROLOL TARTRATE TABS 50MG TAKE 1 TABLET TWICE A DAY ([facility]) METOPROLOL TARTRATE 86995896938 Active Maria Briones Active DOXAZOSIN MESYLATE 2 MG ORAL TABLET 1 po q day for pr ostate and blood pressure DOXAZOSIN MESYLATE 85227693114 Active Mitch Urbina DO Active LOSARTAN TABS 100MG TAKE 1 TABLET DAILY FOR BLOOD PRESSURE LOSARTAN POTASSIUM 63475724079 Active Maria Rivas RN Active FLUTICASONE PROPIONATE 50 MCG/ACT NASAL SUSPENSION 1 s pray each nostril twice daily for 1 week, then once daily FLUTICASONE MA OPIONATE 78872031863 Active Becky Sell SALVAGE CLERK Active PREDNISONE 20 MG ORAL TABLET 2 tabs daily for 3 days 1 tab d aily for 3 days PREDNISONE 04263807116 No Longer Active Becky Sell SALVAGE CLERK Active MINOXIDIL 2.5 MG ORAL TABLET 1 tablet twice daily for high b lood pressure MINOXIDIL 99617733930 Active Mitch Urbina DO Ac tive METFORMIN HCL ER 500 MG ORAL TABLET EXTENDED RELEASE 2 4 HOUR 2 tablets by mouth twice daily METFORMIN HCL 42558517679 Active Mitch Urbina DO Active GLIMEPIRIDE 4 MG ORAL TABLET 1 tablet by mouth twice daily f or diabetes GLIMEPIRIDE 52977248855 Active Mitch Urbina DO Active GLIMEPIRIDE 2 MG ORAL TABLET 1 po BID GLIMEPI RIDE 81906124830 No Longer Active Mitch Urbina DO Active PROVIGIL 200 MG ORAL TABLET 1/2 tab po q day MODA FINIL 70444885460 Active Maria Rivas RN Active FAMOTIDINE 20 MG ORAL TABLET by mouth twice a day 2017 FAMOTIDINE 34956720527 No Longer Active Mitch Urbina DO Active COLCRYS 0.6 MG ORAL TABLET 1 tab qid prn gout C OLCHICINE 55704806115 No Longer Active Mitch Urbina DO Active KEFLEX 500 MG ORAL CAPSULE 1 po qid CEPHALEXI N 31796521667 No Longer Active Mitch Urbina DO Active AMLODIPINE BESYLATE 5 MG ORAL TABLET 1 tablet by mouth daily 201 01/20/04 AMLODIPINE BESYLATE 86733137801 No Longer Active Joe fulton APRN Active MITIGARE 0.6 MG ORAL CAPSULE 2 capsules at onset of go ut pain, then take one capsule at 1 hour if symptoms persist. COLCHICINE 59 421640290 Active Mitch Urbina DO Active MECLIZINE HCL 25 MG ORAL TABLET 1 po tid 3 days, then 1/2 ta b tid 3 days MECLIZINE HCL 68443325996 No Longer Active Corey SEGURA Active ALLOPURINOL 300 MG ORAL TABLET Take 1 tablet by mouth daily 2012 ALLOPURINOL 21329509446 No Longer Active Corey SEGURA Active CLONIDINE HCL 0.1 MG ORAL TABLET 1 po bid 7 days, then 1/2 t ab po bid 7 days CLONIDINE HCL 43113947104 No Longer Active Corey SEGURA Active COUMADIN 4 MG ORAL TABLET 1 tablet daily WARFAR IN SODIUM 91594000632 No Longer Active Corey SEGURA Active POLYTRIM 84644-2.1 UNIT/ML-% OPHTHALMIC SOLUTION 1 rui p in affected eye every 3 hours while awake x 7 days POLYMYXIN B-TRIMETHOP RIM 15219720386 No Longer Active Corey SEGURA Active LOSARTAN POTASSIUM-HCTZ 100-12.5 MG ORAL TABLET 1 by m outh daily for high blood pressure LOSARTAN POTASSIUM-HCTZ 98748152019 No Longer A ctive Mitch Urbina DO Active LISINOPRIL-HYDROCHLOROTHIAZIDE 20-12.5 MG ORAL TABLET 1 tab by m outh daily LISINOPRIL-HYDROCHLOROTHIAZIDE 96714062101 No Longer Active Mitch Urbina DO Active LISINOPRIL 20 MG ORAL TABLET 1 tab po at HS LIS INOPRIL 95678228269 No Longer Active Mitch Urbina DO Active COUMADIN 5 MG ORAL TABLET 1 by mouth every other day 2 WARFARIN SODIUM 45103278218 No Longer Active Mitch Urbina DO Active COUMADIN 6 MG ORAL TABLET 1 by mouth every other day 2 WARFARIN SODIUM 41251804410 No Longer Active Mitch Urbina DO Active SIMVASTATIN 40 MG ORAL TABLET 1 tab daily at bedtime SIMVASTATIN 54804836370 Active Maria Rivas RN Active SIMVASTATIN 20 MG ORAL TABLET 1 tab daily at bedtime 2 SIMVASTATIN 03151200656 No Longer Active Mitch Urbina DO Active LOVENOX 100 MG/ML SUBCUTANEOUS SOLUTION One injection twice a da y ENOXAPARIN SODIUM 36943470488 No Longer Active Carmine Yusuf MD Active JANUVIA 100 MG ORAL TABLET 1/2 by mouth every day 2011 SITAGLIPTIN PHOSPHATE 32508455703 No Longer Active Bijal Segal RN Acti ve METFORMIN HCL 500 MG ORAL TABLET 2 by mouth twice daily METFORMIN HCL 79132155841 No Longer Active Renee Oconnor LPN Active COLCRYS 0.6 MG ORAL TABLET 1 po q 6 hours prn gout pain COLCHICINE 09780368361 No Longer Active Camila Reese Active LISINOPRIL 5 MG ORAL TABLET 1 by mouth every day 11/17 LISINOPRIL 68889594831 No Longer Active Nguyen Perez Active KLOR-CON 20 MEQ ORAL PACKET Take one by mouth daily 20 09/10/08 POTASSIUM CHLORIDE 21074495500 No Longer Active Nguyen Perez Active FUROSEMIDE 40 MG ORAL TABLET 1 by mouth daily F UROSEMIDE 58965794389 No Longer Active Nguyen Perez Active PROVIGIL 100 MG ORAL TABLET Take one by mouth daily 20 08/20/04 MODAFINIL 05930111654 No Longer Active Mitch Urbina DO Active BACTRIM DS 800-160 MG ORAL TABLET 1 tab by mouth twice daily 201 10/19/09 TRIMETHOPRIM-SULFAMETHOXAZOLE 61997539177 No Longer Active C alberto Hays MD Active ADULT ASPIRIN LOW STRENGTH 81 MG ORAL TABLET DISINTEGR ATING 1 by mouth every daily ASPIRIN 55335649614 Active Mitch Urbina DO Ac tive BACTRIM DS 800-160 MG ORAL TABLET 1 tab by mouth twice daily 201 10/19/09 BACTRIM DS 800-160 MG ORAL TABLET 239308 TRIMETHOPRIM-SULFAMETHOXAZOLE Inactive PROVIGIL 100 MG ORAL TABLET Take one by mouth daily 08/20/04 PROVIGIL 100 MG ORAL TABLET 694629 MODAFINIL Inactive FUROSEMIDE 40 MG ORAL TABLET 1 by mouth daily FUROSEMIDE 40 MG ORAL TABLET 830514 FUROSEMIDE Inactive KLOR-CON 20 MEQ ORAL PACKET Take one by mouth daily 09/10/08 KLOR- CON 20 MEQ ORAL PACKET 8399210 POTASSIUM CHLORIDE Inactive LISINOPRIL 5 MG ORAL TABLET 1 by mouth every day 11/17 LISINOPRIL 5 MG ORAL TABLET 218622 LISINOPRIL Inactive COLCRYS 0.6 MG ORAL TABLET 1 po q 6 hours prn gout pain COLCRYS 0.6 MG ORAL TABLET 954571 COLCHICINE Inactive JANUVIA 100 MG ORAL TABLET 1/2 by mouth every day 2011 JANUVIA 100 MG ORAL TABLET SITAGLIPTIN PHOSPHATE Inactive SIMVASTATIN 20 MG ORAL TABLET 1 tab daily at bedtime 2 SIMVASTATIN 20 MG ORAL TABLET 536606 SIMVASTATIN Inactive COUMADIN 6 MG ORAL TABLET 1 by mouth every other day 2 COUMADIN 6 MG ORAL TABLET 985673 WARFARIN SODIUM Inactive COUMADIN 5 MG ORAL TABLET 1 by mouth every other day 2 COUMADIN 5 MG ORAL TABLET 431367 WARFARIN SODIUM Inactive LISINOPRIL 20 MG ORAL TABLET 1 tab po at HS LISINOPRIL 20 MG ORAL TABLET 891245 LISINOPRIL Inactive LISINOPRIL-HYDROCHLOROTHIAZIDE 20-12.5 MG ORAL TABLET 1 tab by m outh daily LISINOPRIL-HYDROCHLOROTHIAZIDE 20-12.5 MG ORAL TABLET 793774 LISINOPRIL-HYDROCHLOROTHIAZIDE Inactive POLYTRIM 48285-4.1 UNIT/ML-% OPHTHALMIC SOLUTION 1 rui p in affected eye every 3 hours while awake x 7 days POLYTRIM 1000 0-0.1 UNIT/ML-% OPHTHALMIC SOLUTION 994501 POLYMYXIN B-TRIMETHOPRIM Inactive COUMADIN 4 MG ORAL TABLET 1 tablet daily COUMADIN 4 MG ORAL TABLET 293970 WARFARIN SODIUM Inactive CLONIDINE HCL 0.1 MG ORAL TABLET 1 po bid 7 days, then 1/2 t ab po bid 7 days CLONIDINE HCL 0.1 MG ORAL TABLET 694701 CLONIDIN E HCL Inactive ALLOPURINOL 300 MG ORAL TABLET Take 1 tablet by mouth daily 2012 ALLOPURINOL 300 MG ORAL TABLET 085193 ALLOPURINOL I nactive MECLIZINE HCL 25 MG ORAL TABLET 1 po tid 3 days, then 1/2 ta b tid 3 days MECLIZINE HCL 25 MG ORAL TABLET 667864 MECLIZINE HCL Inactive AMLODIPINE BESYLATE 5 MG ORAL TABLET 1 tablet by mouth daily 201 01/20/04 AMLODIPINE BESYLATE 5 MG ORAL TABLET 352047 AMLODIPINE BESYLATE Inactive KEFLEX 500 MG ORAL CAPSULE 1 po qid K EFLEX 500 MG ORAL CAPSULE 712377 CEPHALEXIN Inactive COLCRYS 0.6 MG ORAL TABLET 1 tab qid prn gout COLCRYS 0.6 MG ORAL TABLET 658723 COLCHICINE Inactive FAMOTIDINE 20 MG ORAL TABLET by mouth twice a day 2017 FAMOTIDINE 20 MG ORAL TABLET 115539 FAMOTIDINE Inactive GLIMEPIRIDE 2 MG ORAL TABLET 1 po BID GLIMEPIRIDE 2 MG ORAL TABLET 731712 GLIMEPIRIDE Inactive AMLODIPINE BESYLATE 5 MG ORAL TABLET 1 tablet by mouth daily 201 05/19/02 AMLODIPINE BESYLATE 5 MG ORAL TABLET 138468 AMLODIPINE BESYLATE Inactive LOVENOX 100 MG/ML SUBCUTANEOUS SOLUTION One injection twice a da y LOVENOX 100 MG/ML SUBCUTANEOUS SOLUTION 485913 ENOXAPAR IN SODIUM Inactive PREDNISONE 20 MG ORAL TABLET 2 tabs daily for 3 days 1 tab d aily for 3 days PREDNISONE 20 MG ORAL TABLET 386237 PREDNISONE Inactive KEFLEX 500 MG ORAL CAPSULE 1 capsule by mouth three times da rocky x10 days KEFLEX 500 MG ORAL CAPSULE 335504 CEPHALEXIN I nactive Advance Directives Directive Description [...] - Chem istry sodium, serum 138 mmol/L 312-428 5762/11/07 potassium, serum 4.5 mmol/L 3.5-5.2 chloride, serum [...] Panel - Chemistry sodium, serum 140 mmol/L 623-225 3511/11/01 carbon dioxide, venous blood 28.6 mmol/L 21.0-32 [...] mg/dL Encounters Code Encounter Date Provider Facility CPT-99194 [id number] Vst-Est Level IV 16:21:22 CDT Stephy Ambrose [facility] CPT-26520 Level 3 Est. Patient 15:18:36 CDT Becky anderson [facility] CPT-88474 [id number] Vst-Est Level IV 10:06:35 CDT Bru robinson Ambrose [facility]-91528 [id number] Vst-Est Level IV 10:52:00 RESAW CARRIAGE OPERATOR Stephy Ambrose [facility] CPT-36814 Level 3 Est. Patient 18:25:53 CDT Mitch luis [facility] CPT-95705 Level 3 Est. Patient 19:43:34 CDT Mitch luis [facility] CPT-76556 Level 4 Est. Patient 09:30:18 CDT Mitch luis [facility] CPT-61365 Level 3 Est. Patient 15:10:14 CDT Joe Gomez razell [facility] CPT-54155 Level 3 Est. Patient 15:03:46 CDT Devonsonya Jason kamara [facility]-01669 Level 3 Est. Patient 14:21:06 CDT Mitch Arnol Castellano ee [facility] CPT-11433 Level 3 Est. Patient 14:52:06 CDT Devonsonya Jason kamara [facility]-14584 Level 3 Est. Patient 09:34:30 RESAW CARRIAGE OPERATOR Mitch W L ee [facility] CPT-51468 Level 3 Est. Patient 09:37:15 CDT Mitch W L ee [facility]-33783 Level 3 Est. Patient 17:01:00 RESAW CARRIAGE OPERATOR Mitch Ambrose L ee [facility] CPT-88040 Level 3 Est. Patient 13:53:19 RESAW CARRIAGE OPERATOR Mitch W L janelle [facility] CPT-79733 Level 3 Est. Patient 19:19:37 RESAW CARRIAGE OPERATOR Mitch W L ee [facility] CPT-95487 Level 3 Est. Patient 13:25:53 RESAW CARRIAGE OPERATOR Tavo toure MD [facility]-06289 Level 3 Est. Patient 18:17:28 CDT Mitch W L ee [facility] CPT-65030 Level 3 Est. Patient 15:22:57 CDT Mitch W L ee [facility]-45263 Level 3 Est. Patient 18:21:50 CDT Mitch W L ee [facility] CPT-59005 Level 3 Est. Patient 18:20:38 CDT Mitch W L ee [facility]-83721 Level 3 Est. Patient 15:37:55 CDT Mitch W L ee [facility] CPT-59026 Level 2 Est. Patient 15:54:44 CDT Carmine benton MD [facility]-77350 Level 3 Est. Patient 21:46:01 RESAW CARRIAGE OPERATOR Mitch Arnol Nona luis [facility] CPT-82603 Level 3 Est. Patient 22:15:50 CDT Mitch Arnol Nona luis [facility] CPT-61833 Level 3 Est. Patient 10:48:15 CDT Mitch luis [facility] CPT-68474 Level 3 Est. Patient 23:20:57 CDT Tavo toure MD [facility] CPT-50155 Level 3 Est. Patient 16:26:13 CDT Mitch luis [facility] Procedures Code Procedure Name Date Entry Date Standard Desc ription CPT-98555 Venipuncture Draw Fee 14:46:55 RESAW CARRIAGE OPERATOR CPT-71118 Venipuncture Draw Fee 08:26:21 CDT CPT-14349 Venous Duplex Left Leg XRAY USE ONLY 10:43:10 CDT CPT-72700 Venipuncture Draw Fee 17:04:55 CDT CPT-34086 Venipuncture Draw Fee 17:20:50 CDT CPT-75585 Venipuncture Draw Fee 18:00:48 CDT CPT-62196 Venipuncture Draw Fee 14:56:20 CDT CPT-JTINJ Asp/Joint Injection 18:47:02 CDT CPT-32413 Venipuncture Draw Fee 09:26:17 CDT CPT-46896 PT/INR - LAB USE ONLY 13:32:49 RESAW CARRIAGE OPERATOR CPT-66238 Venipuncture Draw Fee 13:32:49 RESAW CARRIAGE OPERATOR CPT-52335 PT/INR - LAB USE ONLY 10:34:49 RESAW CARRIAGE OPERATOR CPT-69499 Venipuncture Draw Fee 10:34:48 RESAW CARRIAGE OPERATOR CPT-97094 PT/INR - LAB USE ONLY 09:22:03 RESAW CARRIAGE OPERATOR CPT-15410 Venipuncture Draw Fee 09:22:02 RESAW CARRIAGE OPERATOR CPT-53348 Hemoccult IFOBT - LAB USE ONLY 10:27:22 CDT CPT-68557 Venipuncture Draw Fee 08:27:08 CDT CPT-94169 Liver Profile - LAB USE ONLY 08:27:07 CDT 2 CPT-24389 Microalbumin - LAB USE ONLY 08:27:07 CDT 20 25/05/09 CPT-92848 PT/INR - LAB USE ONLY 08:27:07 CDT CPT-94757 HGBA1C - LAB USE ONLY 08:27:07 CDT CPT-39833 CBC - LAB USE ONLY 08:27:07 CDT CPT-75557 Venipuncture Draw Fee 11:09:14 CDT CPT-25354 Venipuncture Draw Fee 08:32:21 RESAW CARRIAGE OPERATOR CPT-23297 Venipuncture Draw Fee 09:38:56 RESAW CARRIAGE OPERATOR CPT-58960 No Charge Offi Visit 21:36:07 CDT 1 CPT-39040 Venipuncture Draw Fee 10:13:28 RESAW CARRIAGE OPERATOR CPT-14179 Venipuncture Draw Fee 08:31:11 CDT CPT-97130 Aspir/Inject Med Joint 18:17:28 CDT CPT-36018 Venipuncture Draw Fee 10:13:30 CDT CPT-32321 Venipuncture Draw Fee 08:31:43 RESAW CARRIAGE OPERATOR CPT-JTINJ Joint Injection 18:34:50 CDT CPT-31985 Knee 3V 12:25:09 CDT CPT-23676 Venipuncture Draw Fee 12:15:57 CDT CPT-060 Medical Surveillance Exam 21:31:43 CDT 2011 CPT-22306 Venipuncture Draw Fee 08:32:05 RESAW CARRIAGE OPERATOR CPT-OV Office Visit 18:19:06 CDT
--- OUTSIDE RECORDS SUMMARY | 2020-01-18 14:03 | XMS REPORT | Clinical Summary ---
Author Author Admin, Mitch Leon Organization [facility] Address Unknown Phone Unavailable Allergies, Adverse Reactions, [...] (CURRENT) USE OF ANTICOAGULANTS V58.61 Resol kylah Mtich Urbina DO Long-term (current) use of anticoagulant [...] TAKE 1 TABLET DAILY SITAGLIPT IN PHOSPHATE 20363985412 Active Maria Rivas RN Active INVOKANA TABS 100MG TAKE 1 TABLET DAILY CANAGLIFL OZIN 79834178050 Active Maria Rivas RN Active AMLODIPINE BESYLATE 5 MG ORAL TABLET 1 tablet by mouth daily 201 05/19/02 AMLODIPINE BESYLATE 34830634973 No Longer Active Maria Briones Active WARFARIN TABS 1MG TAKE 2 TABLETS (2 MG) DAILY WITH THE 5 MG TABLET TO EQUAL 7 MG DAILY WARFARIN SODIUM 86828175589 Active Maria Briones Active WARFARIN SODIUM 5 MG TABS TAKE 1 TABLET DAILY W ARFARIN SODIUM 52778317729 Active Allison Anthony APRN-C Active KEFLEX 500 MG ORAL CAPSULE 1 capsule by mouth three times da rocky x10 days CEPHALEXIN 11310842190 No Longer Active Maria landaverde RN Active METOPROLOL TARTRATE TABS 50MG TAKE 1 TABLET TWICE A DAY ([facility]) METOPROLOL TARTRATE 22694410895 Active Maria Briones Active DOXAZOSIN MESYLATE 2 MG ORAL TABLET 1 po q day for pr ostate and blood pressure DOXAZOSIN MESYLATE 97990699130 Active Mitch Urbina DO Active LOSARTAN TABS 100MG TAKE 1 TABLET DAILY FOR BLOOD PRESSURE LOSARTAN POTASSIUM 18460880017 Active Maria Rivas RN Active FLUTICASONE PROPIONATE 50 MCG/ACT NASAL SUSPENSION 1 s pray each nostril twice daily for 1 week, then once daily FLUTICASONE GA OPIONATE 42764962692 Active Becky Sell QUALITY CONTROL ANALYST Active PREDNISONE 20 MG ORAL TABLET 2 tabs daily for 3 days 1 tab d aily for 3 days PREDNISONE 91747554935 No Longer Active Becky Sell QUALITY CONTROL ANALYST Active MINOXIDIL 2.5 MG ORAL TABLET 1 tablet twice daily for high b lood pressure MINOXIDIL 52314907353 Active Mitch Urbina DO Ac tive METFORMIN HCL ER 500 MG ORAL TABLET EXTENDED RELEASE 2 4 HOUR 2 tablets by mouth twice daily METFORMIN HCL 80121868830 Active Mitch Urbina DO Active GLIMEPIRIDE 4 MG ORAL TABLET 1 tablet by mouth twice daily f or diabetes GLIMEPIRIDE 22679410164 Active Mitch Urbina DO Active GLIMEPIRIDE 2 MG ORAL TABLET 1 po BID GLIMEPI RIDE 33866686406 No Longer Active Mitch Urbina DO Active PROVIGIL 200 MG ORAL TABLET 1/2 tab po q day MODA FINIL 65067813559 Active Maria Rivas RN Active FAMOTIDINE 20 MG ORAL TABLET by mouth twice a day 2017 FAMOTIDINE 31900021702 No Longer Active Mitch Urbina DO Active COLCRYS 0.6 MG ORAL TABLET 1 tab qid prn gout C OLCHICINE 13544860373 No Longer Active Mitch Urbina DO Active KEFLEX 500 MG ORAL CAPSULE 1 po qid CEPHALEXI N 78243700352 No Longer Active Mitch Urbina DO Active AMLODIPINE BESYLATE 5 MG ORAL TABLET 1 tablet by mouth daily 201 01/20/04 AMLODIPINE BESYLATE 84432519132 No Longer Active Joe fulton APRN Active MITIGARE 0.6 MG ORAL CAPSULE 2 capsules at onset of go ut pain, then take one capsule at 1 hour if symptoms persist. COLCHICINE 59 206782994 Active Mitch Urbina DO Active MECLIZINE HCL 25 MG ORAL TABLET 1 po tid 3 days, then 1/2 ta b tid 3 days MECLIZINE HCL 31409201887 No Longer Active Corey SEGURA Active ALLOPURINOL 300 MG ORAL TABLET Take 1 tablet by mouth daily 2012 ALLOPURINOL 50445316066 No Longer Active Corey SEGURA Active CLONIDINE HCL 0.1 MG ORAL TABLET 1 po bid 7 days, then 1/2 t ab po bid 7 days CLONIDINE HCL 34083495087 No Longer Active Corey SEGURA Active COUMADIN 4 MG ORAL TABLET 1 tablet daily WARFAR IN SODIUM 04146495976 No Longer Active Corey SEGURA Active POLYTRIM 55958-9.1 UNIT/ML-% OPHTHALMIC SOLUTION 1 rui p in affected eye every 3 hours while awake x 7 days POLYMYXIN B-TRIMETHOP RIM 97303660284 No Longer Active Corey SEGURA Active LOSARTAN POTASSIUM-HCTZ 100-12.5 MG ORAL TABLET 1 by m outh daily for high blood pressure LOSARTAN POTASSIUM-HCTZ 07552023825 No Longer A ctive Mitch Urbina DO Active LISINOPRIL-HYDROCHLOROTHIAZIDE 20-12.5 MG ORAL TABLET 1 tab by m outh daily LISINOPRIL-HYDROCHLOROTHIAZIDE 61143336628 No Longer Active Mitch Urbina DO Active LISINOPRIL 20 MG ORAL TABLET 1 tab po at HS LIS INOPRIL 24018214213 No Longer Active Mitch Urbina DO Active COUMADIN 5 MG ORAL TABLET 1 by mouth every other day 2 WARFARIN SODIUM 82013128629 No Longer Active Mitch Urbina DO Active COUMADIN 6 MG ORAL TABLET 1 by mouth every other day 2 WARFARIN SODIUM 64856622031 No Longer Active Mitch Urbina DO Active SIMVASTATIN 40 MG ORAL TABLET 1 tab daily at bedtime SIMVASTATIN 48534093219 Active Maria Rivas RN Active SIMVASTATIN 20 MG ORAL TABLET 1 tab daily at bedtime 2 SIMVASTATIN 61947056840 No Longer Active Mitch Urbina DO Active LOVENOX 100 MG/ML SUBCUTANEOUS SOLUTION One injection twice a da y ENOXAPARIN SODIUM 25502732224 No Longer Active Carmine Yusuf MD Active JANUVIA 100 MG ORAL TABLET 1/2 by mouth every day 2011 SITAGLIPTIN PHOSPHATE 48568208724 No Longer Active Bijal Segal RN Acti ve METFORMIN HCL 500 MG ORAL TABLET 2 by mouth twice daily METFORMIN HCL 46487797674 No Longer Active Renee Oconnor LEAD SOFTWARE ENGINEER Active COLCRYS 0.6 MG ORAL TABLET 1 po q 6 hours prn gout pain COLCHICINE 05724477681 No Longer Active Camila Reese Active LISINOPRIL 5 MG ORAL TABLET 1 by mouth every day 11/17 LISINOPRIL 90579908569 No Longer Active Nguyen Perez Active KLOR-CON 20 MEQ ORAL PACKET Take one by mouth daily 20 09/10/08 POTASSIUM CHLORIDE 31924991208 No Longer Active Nguyen Perez Active FUROSEMIDE 40 MG ORAL TABLET 1 by mouth daily F UROSEMIDE 22362553320 No Longer Active Nguyen Perez Active PROVIGIL 100 MG ORAL TABLET Take one by mouth daily 20 08/20/04 MODAFINIL 14437981773 No Longer Active Mitch Urbina DO Active BACTRIM DS 800-160 MG ORAL TABLET 1 tab by mouth twice daily 201 10/19/09 TRIMETHOPRIM-SULFAMETHOXAZOLE 16174148875 No Longer Active C alberto Hays MD Active ADULT ASPIRIN LOW STRENGTH 81 MG ORAL TABLET DISINTEGR ATING 1 by mouth every daily ASPIRIN 82496745267 Active Mitch Urbina DO Ac tive BACTRIM DS 800-160 MG ORAL TABLET 1 tab by mouth twice daily 201 10/19/09 BACTRIM DS 800-160 MG ORAL TABLET 085044 TRIMETHOPRIM-SULFAMETHOXAZOLE Inactive PROVIGIL 100 MG ORAL TABLET Take one by mouth daily 08/20/04 PROVIGIL 100 MG ORAL TABLET 817057 MODAFINIL Inactive FUROSEMIDE 40 MG ORAL TABLET 1 by mouth daily FUROSEMIDE 40 MG ORAL TABLET 082296 FUROSEMIDE Inactive KLOR-CON 20 MEQ ORAL PACKET Take one by mouth daily 09/10/08 KLOR- CON 20 MEQ ORAL PACKET 0767023 POTASSIUM CHLORIDE Inactive LISINOPRIL 5 MG ORAL TABLET 1 by mouth every day 11/17 LISINOPRIL 5 MG ORAL TABLET 111162 LISINOPRIL Inactive COLCRYS 0.6 MG ORAL TABLET 1 po q 6 hours prn gout pain COLCRYS 0.6 MG ORAL TABLET 557055 COLCHICINE Inactive JANUVIA 100 MG ORAL TABLET 1/2 by mouth every day 2011 JANUVIA 100 MG ORAL TABLET SITAGLIPTIN PHOSPHATE Inactive SIMVASTATIN 20 MG ORAL TABLET 1 tab daily at bedtime 2 SIMVASTATIN 20 MG ORAL TABLET 337484 SIMVASTATIN Inactive COUMADIN 6 MG ORAL TABLET 1 by mouth every other day 2 COUMADIN 6 MG ORAL TABLET 858572 WARFARIN SODIUM Inactive COUMADIN 5 MG ORAL TABLET 1 by mouth every other day 2 COUMADIN 5 MG ORAL TABLET 843357 WARFARIN SODIUM Inactive LISINOPRIL 20 MG ORAL TABLET 1 tab po at HS LISINOPRIL 20 MG ORAL TABLET 390915 LISINOPRIL Inactive LISINOPRIL-HYDROCHLOROTHIAZIDE 20-12.5 MG ORAL TABLET 1 tab by m outh daily LISINOPRIL-HYDROCHLOROTHIAZIDE 20-12.5 MG ORAL TABLET 792670 LISINOPRIL-HYDROCHLOROTHIAZIDE Inactive POLYTRIM 18587-1.1 UNIT/ML-% OPHTHALMIC SOLUTION 1 rui p in affected eye every 3 hours while awake x 7 days POLYTRIM 1000 0-0.1 UNIT/ML-% OPHTHALMIC SOLUTION 882885 POLYMYXIN B-TRIMETHOPRIM Inactive COUMADIN 4 MG ORAL TABLET 1 tablet daily COUMADIN 4 MG ORAL TABLET 398298 WARFARIN SODIUM Inactive CLONIDINE HCL 0.1 MG ORAL TABLET 1 po bid 7 days, then 1/2 t ab po bid 7 days CLONIDINE HCL 0.1 MG ORAL TABLET 865830 CLONIDIN E HCL Inactive ALLOPURINOL 300 MG ORAL TABLET Take 1 tablet by mouth daily 2012 ALLOPURINOL 300 MG ORAL TABLET 346612 ALLOPURINOL I nactive MECLIZINE HCL 25 MG ORAL TABLET 1 po tid 3 days, then 1/2 ta b tid 3 days MECLIZINE HCL 25 MG ORAL TABLET 105397 MECLIZINE HCL Inactive AMLODIPINE BESYLATE 5 MG ORAL TABLET 1 tablet by mouth daily 201 01/20/04 AMLODIPINE BESYLATE 5 MG ORAL TABLET 636198 AMLODIPINE BESYLATE Inactive KEFLEX 500 MG ORAL CAPSULE 1 po qid K EFLEX 500 MG ORAL CAPSULE 643609 CEPHALEXIN Inactive COLCRYS 0.6 MG ORAL TABLET 1 tab qid prn gout COLCRYS 0.6 MG ORAL TABLET 339154 COLCHICINE Inactive FAMOTIDINE 20 MG ORAL TABLET by mouth twice a day 2017 FAMOTIDINE 20 MG ORAL TABLET 264052 FAMOTIDINE Inactive GLIMEPIRIDE 2 MG ORAL TABLET 1 po BID GLIMEPIRIDE 2 MG ORAL TABLET 632551 GLIMEPIRIDE Inactive AMLODIPINE BESYLATE 5 MG ORAL TABLET 1 tablet by mouth daily 201 05/19/02 AMLODIPINE BESYLATE 5 MG ORAL TABLET 162372 AMLODIPINE BESYLATE Inactive LOVENOX 100 MG/ML SUBCUTANEOUS SOLUTION One injection twice a da y LOVENOX 100 MG/ML SUBCUTANEOUS SOLUTION 538579 ENOXAPAR IN SODIUM Inactive PREDNISONE 20 MG ORAL TABLET 2 tabs daily for 3 days 1 tab d aily for 3 days PREDNISONE 20 MG ORAL TABLET 558774 PREDNISONE Inactive KEFLEX 500 MG ORAL CAPSULE 1 capsule by mouth three times da rocky x10 days KEFLEX 500 MG ORAL CAPSULE 805906 CEPHALEXIN I nactive Advance Directives Directive Description [...] - Chem istry sodium, serum 138 mmol/L 087-201 2319/11/07 potassium, serum 4.5 mmol/L 3.5-5.2 chloride, serum [...] Panel - Chemistry sodium, serum 140 mmol/L 647-693 7037/11/01 carbon dioxide, venous blood 28.6 mmol/L 21.0-32 [...] mg/dL Encounters Code Encounter Date Provider Facility CPT-20438 [id number] Vst-Est Level IV 16:21:22 CDT Stephy [facility] CPT-84505 Level 3 Est. Patient 15:18:36 CDT Becky anderson [facility] CPT-09671 30081-Yix Vst-Est Level IV 10:06:35 CDT Bru robinson [facility] CPT-05757 74445-Aqa Vst-Est Level IV 10:52:00 SHEET METAL MECHANIC Stephy [facility] CPT-70465 Level 3 Est. Patient 18:25:53 CDT Mitch luis [facility] CPT-11892 Level 3 Est. Patient 19:43:34 CDT Mitch luis [facility] CPT-10830 Level 4 Est. Patient 09:30:18 CDT Mitch luis [facility] CPT-14447 Level 3 Est. Patient 15:10:14 CDT Joe Jason kamara [facility] CPT-11705 Level 3 Est. Patient 15:03:46 CDT Devonjustincarlitos kamara [facility]-95446 Level 3 Est. Patient 14:21:06 CDT Mitch Arnol L ee [facility] CPT-96763 Level 3 Est. Patient 14:52:06 CDT Devonsonya Jason kamara [facility]-67309 Level 3 Est. Patient 09:34:30 SHEET METAL MECHANIC Mitch W L ee [facility] CPT-67800 Level 3 Est. Patient 09:37:15 CDT Mitch W L ee [facility]-31302 Level 3 Est. Patient 17:01:00 SHEET METAL MECHANIC Mitch W L ee [facility] CPT-73334 Level 3 Est. Patient 13:53:19 SHEET METAL MECHANIC Mitch W L ee [facility] CPT-22504 Level 3 Est. Patient 19:19:37 SHEET METAL MECHANIC Mitch W L ee [facility] CPT-04903 Level 3 Est. Patient 13:25:53 SHEET METAL MECHANIC Tavo toure MD [facility]-70058 Level 3 Est. Patient 18:17:28 CDT Mitch W L ee [facility] CPT-59847 Level 3 Est. Patient 15:22:57 CDT Mitch W L ee [facility]-51909 Level 3 Est. Patient 18:21:50 CDT Mitch W L ee [facility]-44545 Level 3 Est. Patient 18:20:38 CDT Mitch W L ee [facility]-49883 Level 3 Est. Patient 15:37:55 CDT Mitch W L ee [facility] CPT-99187 Level 2 Est. Patient 15:54:44 CDT Carmine benton MD [facility]-79656 Level 3 Est. Patient 21:46:01 SHEET METAL MECHANIC Mitch Arnol Nona janelle [facility] CPT-82373 Level 3 Est. Patient 22:15:50 CDT Mitch Arnol Nona luis [facility] CPT-65993 Level 3 Est. Patient 10:48:15 CDT Mitch luis [facility] CPT-90627 Level 3 Est. Patient 23:20:57 CDT Tavo toure MD [facility] CPT-88703 Level 3 Est. Patient 16:26:13 CDT Mitch luis [facility] Procedures Code Procedure Name Date Entry Date Standard Desc ription CPT-45069 Venipuncture Draw Fee 10:44:42 SHEET METAL MECHANIC CPT-89678 Venipuncture Draw Fee 14:46:55 SHEET METAL MECHANIC CPT-78955 Venipuncture Draw Fee 08:26:21 CDT CPT-76275 Venous Duplex Left Leg XRAY USE ONLY 10:43:10 CDT CPT-34486 Venipuncture Draw Fee 17:04:55 CDT CPT-54758 Venipuncture Draw Fee 17:20:50 CDT CPT-40735 Venipuncture Draw Fee 18:00:48 CDT CPT-16564 Venipuncture Draw Fee 14:56:20 CDT CPT-JTINJ Asp/Joint Injection 18:47:02 CDT CPT-28153 Venipuncture Draw Fee 09:26:17 CDT CPT-46421 PT/INR - LAB USE ONLY 13:32:49 SHEET METAL MECHANIC CPT-30550 Venipuncture Draw Fee 13:32:49 SHEET METAL MECHANIC CPT-68250 PT/INR - LAB USE ONLY 10:34:49 SHEET METAL MECHANIC CPT-64444 Venipuncture Draw Fee 10:34:48 SHEET METAL MECHANIC CPT-59164 PT/INR - LAB USE ONLY 09:22:03 SHEET METAL MECHANIC CPT-88696 Venipuncture Draw Fee 09:22:02 SHEET METAL MECHANIC CPT-32274 Hemoccult IFOBT - LAB USE ONLY 10:27:22 CDT CPT-80863 Venipuncture Draw Fee 08:27:08 CDT CPT-09669 Liver Profile - LAB USE ONLY 08:27:07 CDT 2 CPT-50342 Microalbumin - LAB USE ONLY 08:27:07 CDT 20 25/05/09 CPT-59030 PT/INR - LAB USE ONLY 08:27:07 CDT CPT-32562 HGBA1C - LAB USE ONLY 08:27:07 CDT CPT-54885 CBC - LAB USE ONLY 08:27:07 CDT CPT-56974 Venipuncture Draw Fee 11:09:14 CDT CPT-37977 Venipuncture Draw Fee 08:32:21 SHEET METAL MECHANIC CPT-51605 Venipuncture Draw Fee 09:38:56 SHEET METAL MECHANIC CPT-83487 No Charge Offi Visit 21:36:07 CDT 1 CPT-99562 Venipuncture Draw Fee 10:13:28 SHEET METAL MECHANIC CPT-86111 Venipuncture Draw Fee 08:31:11 CDT CPT-06298 Aspir/Inject Med Joint 18:17:28 CDT CPT-36326 Venipuncture Draw Fee 10:13:30 CDT CPT-56768 Venipuncture Draw Fee 08:31:43 SHEET METAL MECHANIC CPT-JTINJ Joint Injection 18:34:50 CDT CPT-78341 Knee 3V 12:25:09 CDT CPT-16486 Venipuncture Draw Fee 12:15:57 CDT CPT-060 Medical Surveillance Exam 21:31:43 CDT 2011 CPT-70436 Venipuncture Draw Fee 08:32:05 SHEET METAL MECHANIC CPT-OV Office Visit 18:19:06 CDT
--- OUTSIDE RECORDS SUMMARY | 2020-01-18 14:03 | XMS REPORT | Continuity of Care Document ---
Author Author [facility] Organization [facility] Address [address] [place] [address] Phone Unavailable Care Team Providers Care Faculty I On Call Medical Assistant Name Role Phone DO MITCH MELÉNDEZ PCP Unavailable Allergies, Adverse Reactions, Alerts No allergy information available. Medications No known medications. Problems No problem information available. Procedures Procedure Date Performed Status LULU SUBQ TISSUE 20 SQ CM/< August 13, 2019 completed LULU SUBQ TISSUE 20 SQ CM/< August 13, 2019 completed LULU SUBQ TISSUE 20 SQ CM/< August 13, 2019 completed LULU SUBQ TISSUE 20 SQ CM/< August 13, 2019 completed APPLY MULTLAY COMPRS LWR LEG August 13, 2019 completed GLUCOSE BLOOD TEST August 13, 2019 completed RMVL DEVITAL TIS 20 CM/< August 13, 2019 completed RMVL DEVITAL TIS 20 CM/< August 13, 2019 completed FOAM DRESSING, WOUND COVER, STERILE, PAD SIZE MORE THAN 16 S August 13, 2019 completed FOAM DRESSING, WOUND COVER, STERILE, PAD SIZE MORE THAN 16 S August 13, 2019 completed FOAM DRESSING, WOUND COVER, STERILE, PAD SIZE MORE THAN 16 S August 13, 2019 completed FOAM DRESSING, WOUND COVER, STERILE, PAD SIZE MORE THAN 16 S August 13, 2019 completed GRADIENT COMPRESSION WRAP, NON-ELASTIC, BELOW KNEE, 30-50 MM August 13, 2019 completed Relevant Diagnostic Tests and/or Laboratory Data Laboratory Results Test Date/Time Result Interpretation Reference Range Result Co mment Performing Site Prothrombin Time September 17, 2019 1:53pm 32.6 9.1-12. 1 MAIN LAB, [address] [facility] [address] [facility] [address] Prothromb Time International Ratio September 17, 2019 1:53pm 3.03 1.0-2.0 MAIN LAB, [address] [facility] [address] [place] [address] Sodium Level September 17, 2019 1:53pm 142 137-145 MAIN LAB, [address] [address] [place] [address] Potassium Level September 17, 2019 1:53pm 4.4 3.5-5.1 MAIN LAB, [address] [address] [place] [address] Chloride Level September 17, 2019 1:53pm 104 98-107 MAIN LAB, [address] [address] [place] [address] Carbon Dioxide Level September 17, 2019 1:53pm 29.4 22- 30 MAIN LAB, [address] [address] [place] [address] Anion Gap September 17, 2019 1:53pm 13.0 8-16 MAIN LAB, [address] [address] [place] [address] Blood Urea Nitrogen September 17, 2019 1:53pm 25 9-20 MAIN LAB, [address] [address] [place] [address] Creatinine September 17, 2019 1:53pm 1.05 0.66-1.25 MAIN LAB, [address] [address] [place] [address] Est Glomerular Filtrat Rate mL/min September 17, 2019 1:53pm 70.45 GFR NORMALS:Stage I: GFR >90Stage II GFR 60-89Stage III GFR 30-60Stage IV: GFR 15-29Stage V: GFR <15 MAIN LAB, [address] [address] [place] [address] BUN/Creatinine Ratio September 17, 2019 1:53pm 23.80 MAIN LAB, [address] [address] [place] [address] Glucose Level September 17, 2019 1:53pm 119 74-106 MAIN LAB, [facility] [address] [place] [address] Calcium Level September 17, 2019 1:53pm 9.9 8.4-10.2 MAIN LAB, [address] [address] [place] [address] Health Concerns No known health concerns documented Encounters Encounter Location(s) Arrival/Admit Date Discharge/Depart Date Provider(s) Discharged [facility] September 17, 2019 1: 03pm September 17, 2019 4:30pm TIFF [facility] MATCH MAKER Discharged [facility] August 13, 2019 8: 42am August 30, 2019 4:30pm TIFF [facility] MATCH MAKER Discharged [facility] August 09, 2019 12 :38pm August 09, 2019 4:30pm [facility]FF [facility] MATCH MAKER Assessments No Assessments Information Available Functional Status No Functional Status information available Goals No Goals Information Available Immunizations No Immunization Information Available Mental Status No Mental Status Information Available Medical Equipment No Medical Equipment Information available Insurance Providers GuarantMitch Summers Address [address] [place] [address] [place] [address] Contact Info. Home Phone: Payer Policy Id Coverage Id Subscriber's Name Subscriber Id Effect juan Date Expiration Date [facility] [id number] Mitch Crandall [id number] Plan of Treatment Future Tests Future scheduled test information is unavailable Pending Tests Test Name Date ordered Aerobic Culture August 09, 2019 1:00pm Aerobic Culture September 10, 2019 1:15pm Anaerobic Culture August 09, 2019 1:00pm Anaerobic Culture September 10, 2019 1:15pm Future Visits Future appointment information is unavailable Referrals to Other Providers Referral information is unavailable Future Procedures Future procedure information is unavailable Future Medications Future medication information is unavailable Patient Instructions Patient instructions are unavailable Social History Assigned Sex Male Vital Signs No vital signs result information available.
--- OUTSIDE RECORDS SUMMARY | 2020-01-18 14:03 | XMS REPORT | Clinical Summary ---
Author Author Admin, Mitch Leon Organization [facility] [employer] Address Unknown Phone Unavailable Allergies, Adverse Reactions, [...] atherosclerosis of unspecified type of vessel, [place] or graft EDEMA 782.3 Resolved Mitch Urbina [...] TAKE 1 TABLET DAILY SITAGLIPT IN PHOSPHATE 12706016503 Active Maria Rivas RN Active INVOKANA TABS 100MG TAKE 1 TABLET DAILY CANAGLIFL OZIN 01225407898 Active Maria Rivas RN Active AMLODIPINE BESYLATE 5 MG ORAL TABLET 1 tablet by mouth daily 201 05/19/02 AMLODIPINE BESYLATE 48679282512 No Longer Active Maria Briones Active WARFARIN TABS 1MG TAKE 2 TABLETS (2 MG) DAILY WITH THE 5 MG TABLET TO EQUAL 7 MG DAILY WARFARIN SODIUM 39352875615 Active Maria Briones Active WARFARIN SODIUM 5 MG TABS TAKE 1 TABLET DAILY W ARFARIN SODIUM 35385413504 Active Allison Anthony APRN-C Active KEFLEX 500 MG ORAL CAPSULE 1 capsule by mouth three times da rocky x10 days CEPHALEXIN 00038751408 No Longer Active Maria landaverde RN Active METOPROLOL TARTRATE TABS 50MG TAKE 1 TABLET TWICE A DAY ([facility]) METOPROLOL TARTRATE 54683427988 Active Maria Briones Active DOXAZOSIN MESYLATE 2 MG ORAL TABLET 1 po q day for pr ostate and blood pressure DOXAZOSIN MESYLATE 51540025752 Active Mitch Urbina DO Active LOSARTAN TABS 100MG TAKE 1 TABLET DAILY FOR BLOOD PRESSURE LOSARTAN POTASSIUM 00327740911 Active Maria Rivas RN Active FLUTICASONE PROPIONATE 50 MCG/ACT NASAL SUSPENSION 1 s pray each nostril twice daily for 1 week, then once daily FLUTICASONE [place] OPIONATE 41992551870 Active Becky Sell WIRE COILER Active PREDNISONE 20 MG ORAL TABLET 2 tabs daily for 3 days 1 tab d aily for 3 days PREDNISONE 47985207723 No Longer Active Becky Sell WIRE COILER Active MINOXIDIL 2.5 MG ORAL TABLET 1 tablet twice daily for high b lood pressure MINOXIDIL 07587689300 Active Mitch Urbina DO Ac tive METFORMIN HCL ER 500 MG ORAL TABLET EXTENDED RELEASE 2 4 HOUR 2 tablets by mouth twice daily METFORMIN HCL 23260308820 Active Mitch Urbina DO Active GLIMEPIRIDE 4 MG ORAL TABLET 1 tablet by mouth twice daily f or diabetes GLIMEPIRIDE 75435607361 Active Mitch Urbina DO Active GLIMEPIRIDE 2 MG ORAL TABLET 1 po BID GLIMEPI RIDE 93736700383 No Longer Active Mitch Urbina DO Active PROVIGIL 200 MG ORAL TABLET 1/2 tab po q day MODA FINIL 73964649027 Active Maria Rivas RN Active FAMOTIDINE 20 MG ORAL TABLET by mouth twice a day 2017 FAMOTIDINE 84119718801 No Longer Active Mitch Urbina DO Active COLCRYS 0.6 MG ORAL TABLET 1 tab qid prn gout C OLCHICINE 85082116880 No Longer Active Mitch Urbina DO Active KEFLEX 500 MG ORAL CAPSULE 1 po qid CEPHALEXI N 18339226234 No Longer Active Mitch Urbina DO Active AMLODIPINE BESYLATE 5 MG ORAL TABLET 1 tablet by mouth daily 201 01/20/04 AMLODIPINE BESYLATE 92385816095 No Longer Active Joe fulton APRN Active MITIGARE 0.6 MG ORAL CAPSULE 2 capsules at onset of go ut pain, then take one capsule at 1 hour if symptoms persist. COLCHICINE 59 783854610 Active Mitch Urbina DO Active MECLIZINE HCL 25 MG ORAL TABLET 1 po tid 3 days, then 1/2 ta b tid 3 days MECLIZINE HCL 29869977043 No Longer Active Corey SEGURA Active ALLOPURINOL 300 MG ORAL TABLET Take 1 tablet by mouth daily 2012 ALLOPURINOL 59324449761 No Longer Active Corey SEGURA Active CLONIDINE HCL 0.1 MG ORAL TABLET 1 po bid 7 days, then 1/2 t ab po bid 7 days CLONIDINE HCL 30979006144 No Longer Active Corey SEGURA Active COUMADIN 4 MG ORAL TABLET 1 tablet daily WARFAR IN SODIUM 70751334308 No Longer Active Corey SEGURA Active POLYTRIM 13833-6.1 UNIT/ML-% OPHTHALMIC SOLUTION 1 rui p in affected eye every 3 hours while awake x 7 days POLYMYXIN B-TRIMETHOP RIM 83359531948 No Longer Active Corey SEGURA Active LOSARTAN POTASSIUM-HCTZ 100-12.5 MG ORAL TABLET 1 by m outh daily for high blood pressure LOSARTAN POTASSIUM-HCTZ 27701083193 No Longer A ctive Mitch Urbina DO Active LISINOPRIL-HYDROCHLOROTHIAZIDE 20-12.5 MG ORAL TABLET 1 tab by m outh daily LISINOPRIL-HYDROCHLOROTHIAZIDE 79044795777 No Longer Active Mitch Urbina DO Active LISINOPRIL 20 MG ORAL TABLET 1 tab po at HS LIS INOPRIL 11004977116 No Longer Active Mitch Urbina DO Active COUMADIN 5 MG ORAL TABLET 1 by mouth every other day 2 WARFARIN SODIUM 84733578147 No Longer Active Mitch Urbina DO Active COUMADIN 6 MG ORAL TABLET 1 by mouth every other day 2 WARFARIN SODIUM 03843090898 No Longer Active Mitch Urbina DO Active SIMVASTATIN 40 MG ORAL TABLET 1 tab daily at bedtime SIMVASTATIN 28164693400 Active Maria Rivas RN Active SIMVASTATIN 20 MG ORAL TABLET 1 tab daily at bedtime 2 SIMVASTATIN 81324946470 No Longer Active Mitch Urbina DO Active LOVENOX 100 MG/ML SUBCUTANEOUS SOLUTION One injection twice a da y ENOXAPARIN SODIUM 88362235036 No Longer Active Carmine Yusuf MD Active JANUVIA 100 MG ORAL TABLET 1/2 by mouth every day 2011 SITAGLIPTIN PHOSPHATE 55909865442 No Longer Active Bijal Segal RN Acti ve METFORMIN HCL 500 MG ORAL TABLET 2 by mouth twice daily METFORMIN HCL 13461126943 No Longer Active Renee Oconnor LPN Active COLCRYS 0.6 MG ORAL TABLET 1 po q 6 hours prn gout pain COLCHICINE 35146688949 No Longer Active Camila Reese Active LISINOPRIL 5 MG ORAL TABLET 1 by mouth every day 11/17 LISINOPRIL 90568068276 No Longer Active Nguyen Perez Active KLOR-CON 20 MEQ ORAL PACKET Take one by mouth daily 20 09/10/08 POTASSIUM CHLORIDE 52353855568 No Longer Active Nguyen Perez Active FUROSEMIDE 40 MG ORAL TABLET 1 by mouth daily F UROSEMIDE 35487488996 No Longer Active Nguyen Perez Active PROVIGIL 100 MG ORAL TABLET Take one by mouth daily 20 08/20/04 MODAFINIL 25038023553 No Longer Active Mitch Urbina DO Active BACTRIM DS 800-160 MG ORAL TABLET 1 tab by mouth twice daily 201 10/19/09 TRIMETHOPRIM-SULFAMETHOXAZOLE 06640704887 No Longer Active C alberto Hays MD Active ADULT ASPIRIN LOW STRENGTH 81 MG ORAL TABLET DISINTEGR ATING 1 by mouth every daily ASPIRIN 30936464484 Active Mitch Urbina DO Ac tive BACTRIM DS 800-160 MG ORAL TABLET 1 tab by mouth twice daily 201 10/19/09 BACTRIM DS 800-160 MG ORAL TABLET 884127 TRIMETHOPRIM-SULFAMETHOXAZOLE Inactive PROVIGIL 100 MG ORAL TABLET Take one by mouth daily 08/20/04 PROVIGIL 100 MG ORAL TABLET 455710 MODAFINIL Inactive FUROSEMIDE 40 MG ORAL TABLET 1 by mouth daily FUROSEMIDE 40 MG ORAL TABLET 076058 FUROSEMIDE Inactive KLOR-CON 20 MEQ ORAL PACKET Take one by mouth daily 09/10/08 KLOR- CON 20 MEQ ORAL PACKET 0851139 POTASSIUM CHLORIDE Inactive LISINOPRIL 5 MG ORAL TABLET 1 by mouth every day 11/17 LISINOPRIL 5 MG ORAL TABLET 745767 LISINOPRIL Inactive COLCRYS 0.6 MG ORAL TABLET 1 po q 6 hours prn gout pain COLCRYS 0.6 MG ORAL TABLET 467011 COLCHICINE Inactive JANUVIA 100 MG ORAL TABLET 1/2 by mouth every day 2011 JANUVIA 100 MG ORAL TABLET SITAGLIPTIN PHOSPHATE Inactive SIMVASTATIN 20 MG ORAL TABLET 1 tab daily at bedtime 2 SIMVASTATIN 20 MG ORAL TABLET 964338 SIMVASTATIN Inactive COUMADIN 6 MG ORAL TABLET 1 by mouth every other day 2 COUMADIN 6 MG ORAL TABLET 251306 WARFARIN SODIUM Inactive COUMADIN 5 MG ORAL TABLET 1 by mouth every other day 2 COUMADIN 5 MG ORAL TABLET 630602 WARFARIN SODIUM Inactive LISINOPRIL 20 MG ORAL TABLET 1 tab po at HS LISINOPRIL 20 MG ORAL TABLET 373979 LISINOPRIL Inactive LISINOPRIL-HYDROCHLOROTHIAZIDE 20-12.5 MG ORAL TABLET 1 tab by m outh daily LISINOPRIL-HYDROCHLOROTHIAZIDE 20-12.5 MG ORAL TABLET 656903 LISINOPRIL-HYDROCHLOROTHIAZIDE Inactive POLYTRIM 72890-7.1 UNIT/ML-% OPHTHALMIC SOLUTION 1 rui p in affected eye every 3 hours while awake x 7 days POLYTRIM 1000 0-0.1 UNIT/ML-% OPHTHALMIC SOLUTION 153345 POLYMYXIN B-TRIMETHOPRIM Inactive COUMADIN 4 MG ORAL TABLET 1 tablet daily COUMADIN 4 MG ORAL TABLET 796120 WARFARIN SODIUM Inactive CLONIDINE HCL 0.1 MG ORAL TABLET 1 po bid 7 days, then 1/2 t ab po bid 7 days CLONIDINE HCL 0.1 MG ORAL TABLET 455247 CLONIDIN E HCL Inactive ALLOPURINOL 300 MG ORAL TABLET Take 1 tablet by mouth daily 2012 ALLOPURINOL 300 MG ORAL TABLET 983452 ALLOPURINOL I nactive MECLIZINE HCL 25 MG ORAL TABLET 1 po tid 3 days, then 1/2 ta b tid 3 days MECLIZINE HCL 25 MG ORAL TABLET 763515 MECLIZINE HCL Inactive AMLODIPINE BESYLATE 5 MG ORAL TABLET 1 tablet by mouth daily 201 01/20/04 AMLODIPINE BESYLATE 5 MG ORAL TABLET 400227 AMLODIPINE BESYLATE Inactive KEFLEX 500 MG ORAL CAPSULE 1 po qid K EFLEX 500 MG ORAL CAPSULE 053362 CEPHALEXIN Inactive COLCRYS 0.6 MG ORAL TABLET 1 tab qid prn gout COLCRYS 0.6 MG ORAL TABLET 024022 COLCHICINE Inactive FAMOTIDINE 20 MG ORAL TABLET by mouth twice a day 2017 FAMOTIDINE 20 MG ORAL TABLET 077106 FAMOTIDINE Inactive GLIMEPIRIDE 2 MG ORAL TABLET 1 po BID GLIMEPIRIDE 2 MG ORAL TABLET 264077 GLIMEPIRIDE Inactive AMLODIPINE BESYLATE 5 MG ORAL TABLET 1 tablet by mouth daily 201 05/19/02 AMLODIPINE BESYLATE 5 MG ORAL TABLET 671001 AMLODIPINE BESYLATE Inactive LOVENOX 100 MG/ML SUBCUTANEOUS SOLUTION One injection twice a da y LOVENOX 100 MG/ML SUBCUTANEOUS SOLUTION 339801 ENOXAPAR IN SODIUM Inactive PREDNISONE 20 MG ORAL TABLET 2 tabs daily for 3 days 1 tab d aily for 3 days PREDNISONE 20 MG ORAL TABLET 748755 PREDNISONE Inactive KEFLEX 500 MG ORAL CAPSULE 1 capsule by mouth three times da rocky x10 days KEFLEX 500 MG ORAL CAPSULE 957608 CEPHALEXIN I nactive Advance Directives Directive Description [...] - Chem istry sodium, serum 138 mmol/L 590-329 5880/11/07 potassium, serum 4.5 mmol/L 3.5-5.2 chloride, serum [...] Panel - Chemistry sodium, serum 140 mmol/L 312-054 7720/11/01 carbon dioxide, venous blood 28.6 mmol/L 21.0-32 [...] mg/dL Encounters Code Encounter Date Provider Facility CPT-38168 [id number] Vst-Est Level IV 16:21:22 CDT Stephy Ambrose [facility] CPT-30163 Level 3 Est. Patient 15:18:36 CDT Becky anderson [facility] CPT-60218 [id number] Vst-Est Level IV 10:06:35 CDT Bru robinson Ambrose [facility]-54198 [id number] Vst-Est Level IV 10:52:00 DEPUTY PROBATION OFFICER Stephy Ambrose [facility] CPT-77963 Level 3 Est. Patient 18:25:53 CDT Mitch luis [facility] CPT-25284 Level 3 Est. Patient 19:43:34 CDT Mitch luis [facility] CPT-00136 Level 4 Est. Patient 09:30:18 CDT Mitch luis [facility] CPT-73352 Level 3 Est. Patient 15:10:14 CDT Joe Gomez razell [facility] CPT-70314 Level 3 Est. Patient 15:03:46 CDT Devonsonya Jason kamara [facility] [place]-41057 Level 3 Est. Patient 14:21:06 CDT Mitch Arnol Castellano ee [facility] CPT-43316 Level 3 Est. Patient 14:52:06 CDT Devonsonya Jason kamara [facility] [place]-56738 Level 3 Est. Patient 09:34:30 DEPUTY PROBATION OFFICER Mitch W L ee [facility] CPT-90165 Level 3 Est. Patient 09:37:15 CDT Mitch W L ee [facility]-09652 Level 3 Est. Patient 17:01:00 DEPUTY PROBATION OFFICER Mitch Ambrose L ee [facility] CPT-49705 Level 3 Est. Patient 13:53:19 DEPUTY PROBATION OFFICER Mitch W L janelle [facility] CPT-24241 Level 3 Est. Patient 19:19:37 DEPUTY PROBATION OFFICER Mitch W L ee [facility] CPT-54793 Level 3 Est. Patient 13:25:53 DEPUTY PROBATION OFFICER Tavo toure MD [facility]-55872 Level 3 Est. Patient 18:17:28 CDT Mitch W L ee [facility] CPT-30089 Level 3 Est. Patient 15:22:57 CDT Mitch W L ee [facility]-34409 Level 3 Est. Patient 18:21:50 CDT Mitch W L ee [facility] CPT-93458 Level 3 Est. Patient 18:20:38 CDT Mitch W L ee [facility]-57522 Level 3 Est. Patient 15:37:55 CDT Mitch W L ee [facility] CPT-39053 Level 2 Est. Patient 15:54:44 CDT Carmine benton MD [facility]-35859 Level 3 Est. Patient 21:46:01 DEPUTY PROBATION OFFICER Mitch Arnol Nona lusi [facility] CPT-54759 Level 3 Est. Patient 22:15:50 CDT Mitch Arnol Nona luis [facility] CPT-28362 Level 3 Est. Patient 10:48:15 CDT Mitch luis [facility] CPT-83732 Level 3 Est. Patient 23:20:57 CDT Tavo toure [facility] CPT-84793 Level 3 Est. Patient 16:26:13 CDT Mitch luis [facility] Procedures Code Procedure Name Date Entry Date Standard Desc ription CPT-09167 Venipuncture Draw Fee 10:44:42 DEPUTY PROBATION OFFICER CPT-84918 Venipuncture Draw Fee 14:46:55 DEPUTY PROBATION OFFICER CPT-92534 Venipuncture Draw Fee 08:26:21 CDT CPT-06294 Venous Duplex Left Leg XRAY USE ONLY 10:43:10 CDT CPT-46940 Venipuncture Draw Fee 17:04:55 CDT CPT-33777 Venipuncture Draw Fee 17:20:50 CDT CPT-47303 Venipuncture Draw Fee 18:00:48 CDT CPT-86848 Venipuncture Draw Fee 14:56:20 CDT CPT-JTINJ Asp/Joint Injection 18:47:02 CDT CPT-70528 Venipuncture Draw Fee 09:26:17 CDT CPT-27999 PT/INR - LAB USE ONLY 13:32:49 DEPUTY PROBATION OFFICER CPT-38979 Venipuncture Draw Fee 13:32:49 DEPUTY PROBATION OFFICER CPT-38675 PT/INR - LAB USE ONLY 10:34:49 DEPUTY PROBATION OFFICER CPT-67648 Venipuncture Draw Fee 10:34:48 DEPUTY PROBATION OFFICER CPT-79959 PT/INR - LAB USE ONLY 09:22:03 DEPUTY PROBATION OFFICER CPT-67471 Venipuncture Draw Fee 09:22:02 DEPUTY PROBATION OFFICER CPT-40650 Hemoccult IFOBT - LAB USE ONLY 10:27:22 CDT CPT-23095 Venipuncture Draw Fee 08:27:08 CDT CPT-99746 Liver Profile - LAB USE ONLY 08:27:07 CDT 2 CPT-82824 Microalbumin - LAB USE ONLY 08:27:07 CDT 20 25/05/09 CPT-78229 PT/INR - LAB USE ONLY 08:27:07 CDT CPT-51423 HGBA1C - LAB USE ONLY 08:27:07 CDT CPT-94676 CBC - LAB USE ONLY 08:27:07 CDT CPT-36517 Venipuncture Draw Fee 11:09:14 CDT CPT-44555 Venipuncture Draw Fee 08:32:21 DEPUTY PROBATION OFFICER CPT-75649 Venipuncture Draw Fee 09:38:56 DEPUTY PROBATION OFFICER CPT-56124 No Charge Offi Visit 21:36:07 CDT 1 CPT-50796 Venipuncture Draw Fee 10:13:28 DEPUTY PROBATION OFFICER CPT-67143 Venipuncture Draw Fee 08:31:11 CDT CPT-47621 Aspir/Inject Med Joint 18:17:28 CDT CPT-60935 Venipuncture Draw Fee 10:13:30 CDT CPT-01939 Venipuncture Draw Fee 08:31:43 DEPUTY PROBATION OFFICER CPT-JTINJ Joint Injection 18:34:50 CDT CPT-99308 Knee 3V 12:25:09 CDT CPT-11526 Venipuncture Draw Fee 12:15:57 CDT CPT-060 Medical Surveillance Exam 21:31:43 CDT 2011 CPT-97445 Venipuncture Draw Fee 08:32:05 DEPUTY PROBATION OFFICER CPT-OV Office Visit 18:19:06 CDT
--- OUTSIDE RECORDS SUMMARY | 2020-01-18 14:04 | XMS REPORT | Clinical Summary ---
Author Author Admin, Mitch Leon Organization [facility] Address Unknown Phone Unavailable Allergies, Adverse Reactions, [...] fatigue Cough, chronic 786.2 Resolved Mitch Arnol Carltios DO Cough Sebaceous cyst, infected 706.2 Resolved [...] TAKE 1 TABLET DAILY SITAGLIPT IN PHOSPHATE 83689344294 Active Maria Rivas RN Active INVOKANA TABS 100MG TAKE 1 TABLET DAILY CANAGLIFL OZIN 93689052291 Active Maria Rivas RN Active AMLODIPINE BESYLATE 5 MG ORAL TABLET 1 tablet by mouth daily 201 05/19/02 AMLODIPINE BESYLATE 75960050608 No Longer Active Maria Briones Active WARFARIN TABS 1MG TAKE 2 TABLETS (2 MG) DAILY WITH THE 5 MG TABLET TO EQUAL 7 MG DAILY WARFARIN SODIUM 56593881180 Active Maria Briones Active WARFARIN SODIUM 5 MG TABS TAKE 1 TABLET DAILY W ARFARIN SODIUM 11426453436 Active Allison Anthony APRN-C Active KEFLEX 500 MG ORAL CAPSULE 1 capsule by mouth three times da rocky x10 days CEPHALEXIN 94233136740 No Longer Active Maria landaverde RN Active METOPROLOL TARTRATE TABS 50MG TAKE 1 TABLET TWICE A DAY ([facility]) METOPROLOL TARTRATE 37418523219 Active Maria Briones Active DOXAZOSIN MESYLATE 2 MG ORAL TABLET 1 po q day for pr ostate and blood pressure DOXAZOSIN MESYLATE 45296582395 Active Mitch Urbina DO Active LOSARTAN TABS 100MG TAKE 1 TABLET DAILY FOR BLOOD PRESSURE LOSARTAN POTASSIUM 24033353172 Active Maria Rivas RN Active FLUTICASONE PROPIONATE 50 MCG/ACT NASAL SUSPENSION 1 s pray each nostril twice daily for 1 week, then once daily FLUTICASONE ME OPIONATE 39710601615 Active Becky Sell MUSEUM SPECIALIST Active PREDNISONE 20 MG ORAL TABLET 2 tabs daily for 3 days 1 tab d aily for 3 days PREDNISONE 76719189467 No Longer Active Becky Sell MUSEUM SPECIALIST Active MINOXIDIL 2.5 MG ORAL TABLET 1 tablet twice daily for high b lood pressure MINOXIDIL 10959982407 Active Mitch Urbina DO Ac tive METFORMIN HCL ER 500 MG ORAL TABLET EXTENDED RELEASE 2 4 HOUR 2 tablets by mouth twice daily METFORMIN HCL 27236793827 Active Mitch Urbina DO Active GLIMEPIRIDE 4 MG ORAL TABLET 1 tablet by mouth twice daily f or diabetes GLIMEPIRIDE 04945941641 Active Mitch Urbina DO Active GLIMEPIRIDE 2 MG ORAL TABLET 1 po BID GLIMEPI RIDE 52013064343 No Longer Active Mitch Urbina DO Active PROVIGIL 200 MG ORAL TABLET 1/2 tab po q day MODA FINIL 89821774054 Active Maria Rivas RN Active FAMOTIDINE 20 MG ORAL TABLET by mouth twice a day 2017 FAMOTIDINE 52150014054 No Longer Active Mitch Urbina DO Active COLCRYS 0.6 MG ORAL TABLET 1 tab qid prn gout C OLCHICINE 17975044268 No Longer Active Mitch Urbina DO Active KEFLEX 500 MG ORAL CAPSULE 1 po qid CEPHALEXI N 40487002623 No Longer Active Mitch Urbina DO Active AMLODIPINE BESYLATE 5 MG ORAL TABLET 1 tablet by mouth daily 201 01/20/04 AMLODIPINE BESYLATE 65377755231 No Longer Active Joe fulton APRN Active MITIGARE 0.6 MG ORAL CAPSULE 2 capsules at onset of go ut pain, then take one capsule at 1 hour if symptoms persist. COLCHICINE 59 138723580 Active Mitch Urbina DO Active MECLIZINE HCL 25 MG ORAL TABLET 1 po tid 3 days, then 1/2 ta b tid 3 days MECLIZINE HCL 89261503788 No Longer Active Corey SEGURA Active ALLOPURINOL 300 MG ORAL TABLET Take 1 tablet by mouth daily 2012 ALLOPURINOL 32533573965 No Longer Active Corey SEGURA Active CLONIDINE HCL 0.1 MG ORAL TABLET 1 po bid 7 days, then 1/2 t ab po bid 7 days CLONIDINE HCL 00151894275 No Longer Active Corey SEGURA Active COUMADIN 4 MG ORAL TABLET 1 tablet daily WARFAR IN SODIUM 82173937913 No Longer Active Corey SEGURA Active POLYTRIM 42323-4.1 UNIT/ML-% OPHTHALMIC SOLUTION 1 rui p in affected eye every 3 hours while awake x 7 days POLYMYXIN B-TRIMETHOP RIM 13317299767 No Longer Active Corey SEGURA Active LOSARTAN POTASSIUM-HCTZ 100-12.5 MG ORAL TABLET 1 by m outh daily for high blood pressure LOSARTAN POTASSIUM-HCTZ 61083467200 No Longer A ctive Mitch Urbina DO Active LISINOPRIL-HYDROCHLOROTHIAZIDE 20-12.5 MG ORAL TABLET 1 tab by m outh daily LISINOPRIL-HYDROCHLOROTHIAZIDE 85499763659 No Longer Active Mitch Urbina DO Active LISINOPRIL 20 MG ORAL TABLET 1 tab po at HS LIS INOPRIL 68625730095 No Longer Active Mitch Urbina DO Active COUMADIN 5 MG ORAL TABLET 1 by mouth every other day 2 WARFARIN SODIUM 63862186553 No Longer Active Mitch Urbina DO Active COUMADIN 6 MG ORAL TABLET 1 by mouth every other day 2 WARFARIN SODIUM 02256561095 No Longer Active Mitch Urbina DO Active SIMVASTATIN 40 MG ORAL TABLET 1 tab daily at bedtime SIMVASTATIN 77056942766 Active Maria Rivas RN Active SIMVASTATIN 20 MG ORAL TABLET 1 tab daily at bedtime 2 SIMVASTATIN 59000623620 No Longer Active Mitch Urbina DO Active LOVENOX 100 MG/ML SUBCUTANEOUS SOLUTION One injection twice a da y ENOXAPARIN SODIUM 18340231536 No Longer Active Carmine Yusuf MD Active JANUVIA 100 MG ORAL TABLET 1/2 by mouth every day 2011 SITAGLIPTIN PHOSPHATE 04491582995 No Longer Active Bijal Segal RN Acti ve METFORMIN HCL 500 MG ORAL TABLET 2 by mouth twice daily METFORMIN HCL 53476418797 No Longer Active Renee Oconnor LPN Active COLCRYS 0.6 MG ORAL TABLET 1 po q 6 hours prn gout pain COLCHICINE 07259369475 No Longer Active Camila Reese Active LISINOPRIL 5 MG ORAL TABLET 1 by mouth every day 11/17 LISINOPRIL 01165735278 No Longer Active Nguyen Perez Active KLOR-CON 20 MEQ ORAL PACKET Take one by mouth daily 20 09/10/08 POTASSIUM CHLORIDE 50092544467 No Longer Active Nguyen Perez Active FUROSEMIDE 40 MG ORAL TABLET 1 by mouth daily F UROSEMIDE 61661920439 No Longer Active Nguyen Perez Active PROVIGIL 100 MG ORAL TABLET Take one by mouth daily 20 08/20/04 MODAFINIL 75026103240 No Longer Active Mitch Urbina DO Active BACTRIM DS 800-160 MG ORAL TABLET 1 tab by mouth twice daily 201 10/19/09 TRIMETHOPRIM-SULFAMETHOXAZOLE 28749531511 No Longer Active C alberto Hays MD Active ADULT ASPIRIN LOW STRENGTH 81 MG ORAL TABLET DISINTEGR ATING 1 by mouth every daily ASPIRIN 53303291041 Active Mitch Urbina DO Ac tive BACTRIM DS 800-160 MG ORAL TABLET 1 tab by mouth twice daily 201 10/19/09 BACTRIM DS 800-160 MG ORAL TABLET 818955 TRIMETHOPRIM-SULFAMETHOXAZOLE Inactive PROVIGIL 100 MG ORAL TABLET Take one by mouth daily 08/20/04 PROVIGIL 100 MG ORAL TABLET 918084 MODAFINIL Inactive FUROSEMIDE 40 MG ORAL TABLET 1 by mouth daily FUROSEMIDE 40 MG ORAL TABLET 879830 FUROSEMIDE Inactive KLOR-CON 20 MEQ ORAL PACKET Take one by mouth daily 09/10/08 KLOR- CON 20 MEQ ORAL PACKET 9268405 POTASSIUM CHLORIDE Inactive LISINOPRIL 5 MG ORAL TABLET 1 by mouth every day 11/17 LISINOPRIL 5 MG ORAL TABLET 276929 LISINOPRIL Inactive COLCRYS 0.6 MG ORAL TABLET 1 po q 6 hours prn gout pain COLCRYS 0.6 MG ORAL TABLET 627876 COLCHICINE Inactive JANUVIA 100 MG ORAL TABLET 1/2 by mouth every day 2011 JANUVIA 100 MG ORAL TABLET SITAGLIPTIN PHOSPHATE Inactive SIMVASTATIN 20 MG ORAL TABLET 1 tab daily at bedtime 2 SIMVASTATIN 20 MG ORAL TABLET 911877 SIMVASTATIN Inactive COUMADIN 6 MG ORAL TABLET 1 by mouth every other day 2 COUMADIN 6 MG ORAL TABLET 977343 WARFARIN SODIUM Inactive COUMADIN 5 MG ORAL TABLET 1 by mouth every other day 2 COUMADIN 5 MG ORAL TABLET 226944 WARFARIN SODIUM Inactive LISINOPRIL 20 MG ORAL TABLET 1 tab po at HS LISINOPRIL 20 MG ORAL TABLET 651117 LISINOPRIL Inactive LISINOPRIL-HYDROCHLOROTHIAZIDE 20-12.5 MG ORAL TABLET 1 tab by m outh daily LISINOPRIL-HYDROCHLOROTHIAZIDE 20-12.5 MG ORAL TABLET 894483 LISINOPRIL-HYDROCHLOROTHIAZIDE Inactive POLYTRIM 21821-2.1 UNIT/ML-% OPHTHALMIC SOLUTION 1 rui p in affected eye every 3 hours while awake x 7 days POLYTRIM 1000 0-0.1 UNIT/ML-% OPHTHALMIC SOLUTION 368224 POLYMYXIN B-TRIMETHOPRIM Inactive COUMADIN 4 MG ORAL TABLET 1 tablet daily COUMADIN 4 MG ORAL TABLET 658599 WARFARIN SODIUM Inactive CLONIDINE HCL 0.1 MG ORAL TABLET 1 po bid 7 days, then 1/2 t ab po bid 7 days CLONIDINE HCL 0.1 MG ORAL TABLET 981823 CLONIDIN E HCL Inactive ALLOPURINOL 300 MG ORAL TABLET Take 1 tablet by mouth daily 2012 ALLOPURINOL 300 MG ORAL TABLET 211615 ALLOPURINOL I nactive MECLIZINE HCL 25 MG ORAL TABLET 1 po tid 3 days, then 1/2 ta b tid 3 days MECLIZINE HCL 25 MG ORAL TABLET 465953 MECLIZINE HCL Inactive AMLODIPINE BESYLATE 5 MG ORAL TABLET 1 tablet by mouth daily 201 01/20/04 AMLODIPINE BESYLATE 5 MG ORAL TABLET 162518 AMLODIPINE BESYLATE Inactive KEFLEX 500 MG ORAL CAPSULE 1 po qid K EFLEX 500 MG ORAL CAPSULE 432771 CEPHALEXIN Inactive COLCRYS 0.6 MG ORAL TABLET 1 tab qid prn gout COLCRYS 0.6 MG ORAL TABLET 806757 COLCHICINE Inactive FAMOTIDINE 20 MG ORAL TABLET by mouth twice a day 2017 FAMOTIDINE 20 MG ORAL TABLET 157166 FAMOTIDINE Inactive GLIMEPIRIDE 2 MG ORAL TABLET 1 po BID GLIMEPIRIDE 2 MG ORAL TABLET 248581 GLIMEPIRIDE Inactive AMLODIPINE BESYLATE 5 MG ORAL TABLET 1 tablet by mouth daily 201 05/19/02 AMLODIPINE BESYLATE 5 MG ORAL TABLET 703075 AMLODIPINE BESYLATE Inactive LOVENOX 100 MG/ML SUBCUTANEOUS SOLUTION One injection twice a da y LOVENOX 100 MG/ML SUBCUTANEOUS SOLUTION 604583 ENOXAPAR IN SODIUM Inactive PREDNISONE 20 MG ORAL TABLET 2 tabs daily for 3 days 1 tab d aily for 3 days PREDNISONE 20 MG ORAL TABLET 562110 PREDNISONE Inactive KEFLEX 500 MG ORAL CAPSULE 1 capsule by mouth three times da rocky x10 days KEFLEX 500 MG ORAL CAPSULE 829620 CEPHALEXIN I nactive Advance Directives Directive Description [...] - Chem istry sodium, serum 138 mmol/L 725-899 1014/11/07 potassium, serum 4.5 mmol/L 3.5-5.2 chloride, serum [...] Panel - Chemistry sodium, serum 140 mmol/L 920-330 9766/11/01 carbon dioxide, venous blood 28.6 mmol/L 21.0-32 [...] W/RATIO - Lab microalbumin, urine 80 mg/L 0 Lab Report: CBC, MICROALB/CREAT W/RATIO - Urinalysis microalbumin/total urine volume 30 - 300 mg/g Abnormal mg/g mg/L 0 Office Visit: Med Review - Basic LDL target level 100 mg/dL Office Visit: Med Review - Chemistry HDL cholesterol, serum, target level 40 mg/dL cholesterol, target level 200 mg/dL triglyceride, target level 150 mg/dL Encounters Code Encounter Date Provider Facility CPT-05171 [id number] Vst-Est Level IV 16:21:22 CDT Bru robinson Ambrose [facility] CPT-93388 Level 3 Est. Patient 15:18:36 CDT Becky anderson [facility] CPT-46840 [id number] Vst-Est Level IV 10:06:35 CDT Bru ce W [facility] CPT-35351 [id number] Vst-Est Level IV 10:52:00 ROUNDING MACHINE TENDER Stephy Ambrose [facility] CPT-41888 Level 3 Est. Patient 18:25:[address] [facility] CPT-10253 Level 3 Est. Patient 19:43:[address] [facility] CPT-22820 Level 4 Est. Patient 09:30:18 CDT Mitch luis [facility]-95263 Level 3 Est. Patient 15:10:14 CDT Joe kamara [facility] CPT-01912 Level 3 Est. Patient 15:03:46 CDT Devonjustincarlitos kamara [facility]-02362 Level 3 Est. Patient 14:21:06 CDT Mitch luis [facility]-68466 Level 3 Est. Patient 14:52:06 CDT Joe Jason kamara [facility]-71621 Level 3 Est. Patient 09:34:30 ROUNDING MACHINE TENDER Mitch luis [facility]-35257 Level 3 Est. Patient 09:37:15 CDT Mtich luis [facility]-53103 Level 3 Est. Patient 17:01:00 ROUNDING MACHINE TENDER Mitch luis [facility] CPT-71556 Level 3 Est. Patient 13:53:19 ROUNDING MACHINE TENDER Mitch luis [facility] CPT-75748 Level 3 Est. Patient 19:19:37 ROUNDING MACHINE TENDER Mitch W L janelle [facility] CPT-33179 Level 3 Est. Patient 13:25:53 ROUNDING MACHINE TENDER Tavo toure MD [facility]-58114 Level 3 Est. Patient 18:17:28 CDT Mitch luis [facility] CPT-80515 Level 3 Est. Patient 15:22:57 CDT Mtich W Nona luis [facility] CPT-17101 Level 3 Est. Patient 18:21:50 CDT Mitch W L janelle [facility]-46365 Level 3 Est. Patient 18:20:38 CDT Mitch W L ee [facility] CPT-90706 Level 3 Est. Patient 15:37:55 CDT Mitch W L janelle [facility] CPT-04567 Level 2 Est. Patient 15:54:44 CDT Carmine benton MD [facility] CPT-32341 Level 3 Est. Patient 21:46:01 ROUNDING MACHINE TENDER Mitch luis [facility] CPT-05472 Level 3 Est. Patient 22:15:50 CDT Mitch Arnol luis [facility] CPT-94553 Level 3 Est. Patient 10:48:15 CDT Mitch luis [facility] CPT-28937 Level 3 Est. Patient 23:20:57 CDT Tavo toure MD [facility] CPT-80374 Level 3 Est. Patient 16:26:13 CDT Mitch Arnol luis [facility] Procedures Code Procedure Name Date Entry Date Standard Desc ription CPT-47305 Venipuncture Draw Fee 10:44:42 ROUNDING MACHINE TENDER CPT-18915 Venipuncture Draw Fee 14:46:55 ROUNDING MACHINE TENDER CPT-86950 Venipuncture Draw Fee 08:26:21 CDT CPT-26944 Venous Duplex Left Leg XRAY USE ONLY 10:43:10 CDT CPT-37947 Venipuncture Draw Fee 17:04:55 CDT CPT-56576 Venipuncture Draw Fee 17:20:50 CDT CPT-54167 Venipuncture Draw Fee 18:00:48 CDT CPT-95156 Venipuncture Draw Fee 14:56:20 CDT CPT-JTINJ Asp/Joint Injection 18:47:02 CDT CPT-82480 Venipuncture Draw Fee 09:26:17 CDT CPT-51257 PT/INR - LAB USE ONLY 13:32:49 ROUNDING MACHINE TENDER CPT-82359 Venipuncture Draw Fee 13:32:49 ROUNDING MACHINE TENDER CPT-30410 PT/INR - LAB USE ONLY 10:34:49 ROUNDING MACHINE TENDER CPT-10391 Venipuncture Draw Fee 10:34:48 ROUNDING MACHINE TENDER CPT-80690 PT/INR - LAB USE ONLY 09:22:03 ROUNDING MACHINE TENDER CPT-88930 Venipuncture Draw Fee 09:22:02 ROUNDING MACHINE TENDER CPT-28180 Hemoccult IFOBT - LAB USE ONLY 10:27:22 CDT CPT-37259 Venipuncture Draw Fee 08:27:08 CDT CPT-64327 Liver Profile - LAB USE ONLY 08:27:07 CDT 2 CPT-27576 Microalbumin - LAB USE ONLY 08:27:07 CDT 20 25/05/09 CPT-55707 PT/INR - LAB USE ONLY 08:27:07 CDT CPT-94829 HGBA1C - LAB USE ONLY 08:27:07 CDT CPT-28840 CBC - LAB USE ONLY 08:27:07 CDT CPT-27023 Venipuncture Draw Fee 11:09:14 CDT CPT-16621 Venipuncture Draw Fee 08:32:21 ROUNDING MACHINE TENDER CPT-71999 Venipuncture Draw Fee 09:38:56 ROUNDING MACHINE TENDER CPT-87259 No Charge Offi Visit 21:36:07 CDT 1 CPT-69173 Venipuncture Draw Fee 10:13:28 ROUNDING MACHINE TENDER CPT-36374 Venipuncture Draw Fee 08:31:11 CDT CPT-75158 Aspir/Inject Med Joint 18:17:28 CDT CPT-54630 Venipuncture Draw Fee 10:13:30 CDT CPT-72493 Venipuncture Draw Fee 08:31:43 ROUNDING MACHINE TENDER CPT-JTINJ Joint Injection 18:34:50 CDT CPT-26489 Knee 3V 12:25:09 CDT CPT-66577 Venipuncture Draw Fee 12:15:57 CDT CPT-060 Medical Surveillance Exam 21:31:43 CDT 2011 CPT-07881 Venipuncture Draw Fee 08:32:05 ROUNDING MACHINE TENDER CPT-OV Office Visit 18:19:06 CDT
--- OUTSIDE RECORDS SUMMARY | 2020-01-18 14:04 | XMS REPORT | Clinical Summary ---
Author Author Admin, Mitch Leon Organization [facility] [employer] Address Unknown Phone Unavailable Allergies, Adverse [...] Coronary atherosclerosis of unspecified type of vessel, makah or graft EDEMA 782.3 Resolved Mitch Urbina [...] TAKE 1 TABLET DAILY SITAGLIPT IN PHOSPHATE 97904258993 Active Maria Rivas RN Active INVOKANA TABS 100MG TAKE 1 TABLET DAILY CANAGLIFL OZIN 46573685620 Active Maria Rivas RN Active AMLODIPINE BESYLATE 5 MG ORAL TABLET 1 tablet by mouth daily 201 05/19/02 AMLODIPINE BESYLATE 71513947990 No Longer Active Maria Briones Active WARFARIN TABS 1MG TAKE 2 TABLETS (2 MG) DAILY WITH THE 5 MG TABLET TO EQUAL 7 MG DAILY WARFARIN SODIUM 18202544136 Active Maria Briones Active WARFARIN SODIUM 5 MG TABS TAKE 1 TABLET DAILY W ARFARIN SODIUM 11133097453 Active Allison Anthony APRN-C Active KEFLEX 500 MG ORAL CAPSULE 1 capsule by mouth three times da rocky x10 days CEPHALEXIN 68596845908 No Longer Active Maria landaverde RN Active METOPROLOL TARTRATE TABS 50MG TAKE 1 TABLET TWICE A DAY ([facility]) METOPROLOL TARTRATE 44163637754 Active Maria Briones Active DOXAZOSIN MESYLATE 2 MG ORAL TABLET 1 po q day for pr ostate and blood pressure DOXAZOSIN MESYLATE 28433621158 Active Mitch Urbina DO Active LOSARTAN TABS 100MG TAKE 1 TABLET DAILY FOR BLOOD PRESSURE LOSARTAN POTASSIUM 20898012131 Active Maria Rivas RN Active FLUTICASONE PROPIONATE 50 MCG/ACT NASAL SUSPENSION 1 s pray each nostril twice daily for 1 week, then once daily FLUTICASONE GA OPIONATE 02025291943 Active Becky Sell CST Active PREDNISONE 20 MG ORAL TABLET 2 tabs daily for 3 days 1 tab d aily for 3 days PREDNISONE 85897865923 No Longer Active Becky Sell CST Active MINOXIDIL 2.5 MG ORAL TABLET 1 tablet twice daily for high b lood pressure MINOXIDIL 11172286250 Active Mitch Urbina DO Ac tive METFORMIN HCL ER 500 MG ORAL TABLET EXTENDED RELEASE 2 4 HOUR 2 tablets by mouth twice daily METFORMIN HCL 50402515982 Active Mitch Urbina DO Active GLIMEPIRIDE 4 MG ORAL TABLET 1 tablet by mouth twice daily f or diabetes GLIMEPIRIDE 29386250616 Active Mitch Urbina DO Active GLIMEPIRIDE 2 MG ORAL TABLET 1 po BID GLIMEPI RIDE 52992540590 No Longer Active Mitch Urbina DO Active PROVIGIL 200 MG ORAL TABLET 1/2 tab po q day MODA FINIL 59331721137 Active Maria Rivas RN Active FAMOTIDINE 20 MG ORAL TABLET by mouth twice a day 2017 FAMOTIDINE 36702652937 No Longer Active Mitch Urbina DO Active COLCRYS 0.6 MG ORAL TABLET 1 tab qid prn gout C OLCHICINE 25626957126 No Longer Active Mitch Urbina DO Active KEFLEX 500 MG ORAL CAPSULE 1 po qid CEPHALEXI N 85449705499 No Longer Active Mitch Urbina DO Active AMLODIPINE BESYLATE 5 MG ORAL TABLET 1 tablet by mouth daily 201 01/20/04 AMLODIPINE BESYLATE 88010127340 No Longer Active Joe fulton APRN Active MITIGARE 0.6 MG ORAL CAPSULE 2 capsules at onset of go ut pain, then take one capsule at 1 hour if symptoms persist. COLCHICINE 59 720769722 Active Mitch Urbina DO Active MECLIZINE HCL 25 MG ORAL TABLET 1 po tid 3 days, then 1/2 ta b tid 3 days MECLIZINE HCL 57573510165 No Longer Active Corey SEGURA Active ALLOPURINOL 300 MG ORAL TABLET Take 1 tablet by mouth daily 2012 ALLOPURINOL 43608098003 No Longer Active Corey SEGURA Active CLONIDINE HCL 0.1 MG ORAL TABLET 1 po bid 7 days, then 1/2 t ab po bid 7 days CLONIDINE HCL 96670265223 No Longer Active Corey SEGURA Active COUMADIN 4 MG ORAL TABLET 1 tablet daily WARFAR IN SODIUM 53724070578 No Longer Active Corey SEGURA Active POLYTRIM 04356-4.1 UNIT/ML-% OPHTHALMIC SOLUTION 1 rui p in affected eye every 3 hours while awake x 7 days POLYMYXIN B-TRIMETHOP RIM 66134217290 No Longer Active Corey SEGURA Active LOSARTAN POTASSIUM-HCTZ 100-12.5 MG ORAL TABLET 1 by m outh daily for high blood pressure LOSARTAN POTASSIUM-HCTZ 30846192926 No Longer A ctive Mitch Urbina DO Active LISINOPRIL-HYDROCHLOROTHIAZIDE 20-12.5 MG ORAL TABLET 1 tab by m outh daily LISINOPRIL-HYDROCHLOROTHIAZIDE 60237605110 No Longer Active Mitch Urbina DO Active LISINOPRIL 20 MG ORAL TABLET 1 tab po at HS LIS INOPRIL 59508569908 No Longer Active Mitch Urbina DO Active COUMADIN 5 MG ORAL TABLET 1 by mouth every other day 2 WARFARIN SODIUM 14462045414 No Longer Active Mitch Urbina DO Active COUMADIN 6 MG ORAL TABLET 1 by mouth every other day 2 WARFARIN SODIUM 70848116203 No Longer Active Mitch Urbina DO Active SIMVASTATIN 40 MG ORAL TABLET 1 tab daily at bedtime SIMVASTATIN 09551554395 Active Maria Rivas RN Active SIMVASTATIN 20 MG ORAL TABLET 1 tab daily at bedtime 2 SIMVASTATIN 11128553586 No Longer Active Mitch Urbina DO Active LOVENOX 100 MG/ML SUBCUTANEOUS SOLUTION One injection twice a da y ENOXAPARIN SODIUM 83154197158 No Longer Active Carmine Yusuf MD Active JANUVIA 100 MG ORAL TABLET 1/2 by mouth every day 2011 SITAGLIPTIN PHOSPHATE 54383440733 No Longer Active Bijal Segal RN Acti ve METFORMIN HCL 500 MG ORAL TABLET 2 by mouth twice daily METFORMIN HCL 24514292089 No Longer Active Renee Oconnor LPN Active COLCRYS 0.6 MG ORAL TABLET 1 po q 6 hours prn gout pain COLCHICINE 64667808441 No Longer Active Camila Reese Active LISINOPRIL 5 MG ORAL TABLET 1 by mouth every day 11/17 LISINOPRIL 20488124215 No Longer Active Nguyen Perez Active KLOR-CON 20 MEQ ORAL PACKET Take one by mouth daily 20 09/10/08 POTASSIUM CHLORIDE 59553461054 No Longer Active Nguyen Perez Active FUROSEMIDE 40 MG ORAL TABLET 1 by mouth daily F UROSEMIDE 61201757661 No Longer Active Nguyen Perez Active PROVIGIL 100 MG ORAL TABLET Take one by mouth daily 20 08/20/04 MODAFINIL 68663641604 No Longer Active Mitch Urbina DO Active BACTRIM DS 800-160 MG ORAL TABLET 1 tab by mouth twice daily 201 10/19/09 TRIMETHOPRIM-SULFAMETHOXAZOLE 87215878056 No Longer Active C alberto Hays MD Active ADULT ASPIRIN LOW STRENGTH 81 MG ORAL TABLET DISINTEGR ATING 1 by mouth every daily ASPIRIN 31697736929 Active Mitch Urbina DO Ac tive BACTRIM DS 800-160 MG ORAL TABLET 1 tab by mouth twice daily 201 10/19/09 BACTRIM DS 800-160 MG ORAL TABLET 260083 TRIMETHOPRIM-SULFAMETHOXAZOLE Inactive PROVIGIL 100 MG ORAL TABLET Take one by mouth daily 08/20/04 PROVIGIL 100 MG ORAL TABLET 780462 MODAFINIL Inactive FUROSEMIDE 40 MG ORAL TABLET 1 by mouth daily FUROSEMIDE 40 MG ORAL TABLET 872967 FUROSEMIDE Inactive KLOR-CON 20 MEQ ORAL PACKET Take one by mouth daily 09/10/08 KLOR- CON 20 MEQ ORAL PACKET 7272773 POTASSIUM CHLORIDE Inactive LISINOPRIL 5 MG ORAL TABLET 1 by mouth every day 11/17 LISINOPRIL 5 MG ORAL TABLET 349274 LISINOPRIL Inactive COLCRYS 0.6 MG ORAL TABLET 1 po q 6 hours prn gout pain COLCRYS 0.6 MG ORAL TABLET 900091 COLCHICINE Inactive JANUVIA 100 MG ORAL TABLET 1/2 by mouth every day 2011 JANUVIA 100 MG ORAL TABLET SITAGLIPTIN PHOSPHATE Inactive SIMVASTATIN 20 MG ORAL TABLET 1 tab daily at bedtime 2 SIMVASTATIN 20 MG ORAL TABLET 646852 SIMVASTATIN Inactive COUMADIN 6 MG ORAL TABLET 1 by mouth every other day 2 COUMADIN 6 MG ORAL TABLET 488031 WARFARIN SODIUM Inactive COUMADIN 5 MG ORAL TABLET 1 by mouth every other day 2 COUMADIN 5 MG ORAL TABLET 671209 WARFARIN SODIUM Inactive LISINOPRIL 20 MG ORAL TABLET 1 tab po at HS LISINOPRIL 20 MG ORAL TABLET 442287 LISINOPRIL Inactive LISINOPRIL-HYDROCHLOROTHIAZIDE 20-12.5 MG ORAL TABLET 1 tab by m outh daily LISINOPRIL-HYDROCHLOROTHIAZIDE 20-12.5 MG ORAL TABLET 609002 LISINOPRIL-HYDROCHLOROTHIAZIDE Inactive POLYTRIM 84507-7.1 UNIT/ML-% OPHTHALMIC SOLUTION 1 rui p in affected eye every 3 hours while awake x 7 days POLYTRIM 1000 0-0.1 UNIT/ML-% OPHTHALMIC SOLUTION 857634 POLYMYXIN B-TRIMETHOPRIM Inactive COUMADIN 4 MG ORAL TABLET 1 tablet daily COUMADIN 4 MG ORAL TABLET 056709 WARFARIN SODIUM Inactive CLONIDINE HCL 0.1 MG ORAL TABLET 1 po bid 7 days, then 1/2 t ab po bid 7 days CLONIDINE HCL 0.1 MG ORAL TABLET 707224 CLONIDIN E HCL Inactive ALLOPURINOL 300 MG ORAL TABLET Take 1 tablet by mouth daily 2012 ALLOPURINOL 300 MG ORAL TABLET 389115 ALLOPURINOL I nactive MECLIZINE HCL 25 MG ORAL TABLET 1 po tid 3 days, then 1/2 ta b tid 3 days MECLIZINE HCL 25 MG ORAL TABLET 694053 MECLIZINE HCL Inactive AMLODIPINE BESYLATE 5 MG ORAL TABLET 1 tablet by mouth daily 201 01/20/04 AMLODIPINE BESYLATE 5 MG ORAL TABLET 412430 AMLODIPINE BESYLATE Inactive KEFLEX 500 MG ORAL CAPSULE 1 po qid K EFLEX 500 MG ORAL CAPSULE 401832 CEPHALEXIN Inactive COLCRYS 0.6 MG ORAL TABLET 1 tab qid prn gout COLCRYS 0.6 MG ORAL TABLET 343777 COLCHICINE Inactive FAMOTIDINE 20 MG ORAL TABLET by mouth twice a day 2017 FAMOTIDINE 20 MG ORAL TABLET 610838 FAMOTIDINE Inactive GLIMEPIRIDE 2 MG ORAL TABLET 1 po BID GLIMEPIRIDE 2 MG ORAL TABLET 143557 GLIMEPIRIDE Inactive AMLODIPINE BESYLATE 5 MG ORAL TABLET 1 tablet by mouth daily 201 05/19/02 AMLODIPINE BESYLATE 5 MG ORAL TABLET 863598 AMLODIPINE BESYLATE Inactive LOVENOX 100 MG/ML SUBCUTANEOUS SOLUTION One injection twice a da y LOVENOX 100 MG/ML SUBCUTANEOUS SOLUTION 286968 ENOXAPAR IN SODIUM Inactive PREDNISONE 20 MG ORAL TABLET 2 tabs daily for 3 days 1 tab d aily for 3 days PREDNISONE 20 MG ORAL TABLET 336091 PREDNISONE Inactive KEFLEX 500 MG ORAL CAPSULE 1 capsule by mouth three times da rocky x10 days KEFLEX 500 MG ORAL CAPSULE 487049 CEPHALEXIN I nactive Advance Directives Directive Description [...] diastolic, second observation 82 m m[Hg] BP mnae blood pressure, diastolic, repeated by physician 82 [...] - Chem istry sodium, serum 138 mmol/L 497-772 5293/11/07 potassium, serum 4.5 mmol/L 3.5-5.2 chloride, serum [...] Panel - Chemistry sodium, serum 140 mmol/L 563-606 9278/11/01 carbon dioxide, venous blood 28.6 mmol/L 21.0-32 [...] mg/dL Encounters Code Encounter Date Provider Facility CPT-83759 [id number] Vst-Est Level IV 16:21:22 CDT Bru robinson [facility] CPT-18875 Level 3 Est. Patient 15:18:36 CDT Becky anderson [facility] CPT-31099 [id number] Vst-Est Level IV 10:06:35 CDT Bru ce [facility] CPT-29531 [id number] Vst-Est Level IV 10:52:00 INSEAM TRIMMER Stephy [facility] CPT-44730 Level 3 Est. Patient 18:25:53 CDT Mitch luis [facility] CPT-22951 Level 3 Est. Patient 19:43:34 CDT Mitch luis [facility] CPT-48939 Level 4 Est. Patient 09:30:18 CDT Mitch luis [facility]-72468 Level 3 Est. Patient 15:10:14 CDT Joe kamara [facility] CPT-22113 Level 3 Est. Patient 15:03:46 CDT Devonjustincarlitos kamara [facility]-84149 Level 3 Est. Patient 14:21:06 CDT Mitch luis [facility]-10673 Level 3 Est. Patient 14:52:06 CDT Joe Jason kamara [facility]-95684 Level 3 Est. Patient 09:34:30 INSEAM TRIMMER Mitch luis [facility]-99324 Level 3 Est. Patient 09:37:15 CDT Mitch luis [facility]-21445 Level 3 Est. Patient 17:01:00 INSEAM TRIMMER Mitch luis [facility] CPT-63208 Level 3 Est. Patient 13:53:19 INSEAM TRIMMER Mitch luis [facility] CPT-85551 Level 3 Est. Patient 19:19:37 INSEAM TRIMMER Mitch W L janelle [facility] CPT-83678 Level 3 Est. Patient 13:25:53 INSEAM TRIMMER Tavo toure MD [facility]-99168 Level 3 Est. Patient 18:17:28 CDT Mitch luis [facility] CPT-62872 Level 3 Est. Patient 15:22:57 CDT Mitch W Nona luis [facility] CPT-64603 Level 3 Est. Patient 18:21:50 CDT Mitch W L janelle [facility]-15477 Level 3 Est. Patient 18:20:38 CDT Mitch W L ee [facility] CPT-44882 Level 3 Est. Patient 15:37:55 CDT Mitch W L janelle [facility] CPT-41355 Level 2 Est. Patient 15:54:44 CDT Carmine benton MD [facility] CPT-27827 Level 3 Est. Patient 21:46:01 INSEAM TRIMMER Mitch luis [facility] CPT-41874 Level 3 Est. Patient 22:15:50 CDT Mitch Arnol luis [facility] CPT-66636 Level 3 Est. Patient 10:48:15 CDT Mitch luis [facility] CPT-45426 Level 3 Est. Patient 23:20:57 CDT Tavo toure MD [facility] CPT-11817 Level 3 Est. Patient 16:26:13 CDT Mitch Arnol luis [facility] Procedures Code Procedure Name Date Entry Date Standard Desc ription CPT-79019 Venipuncture Draw Fee 10:44:42 INSEAM TRIMMER CPT-35361 Venipuncture Draw Fee 14:46:55 INSEAM TRIMMER CPT-41784 Venipuncture Draw Fee 08:26:21 CDT CPT-03458 Venous Duplex Left Leg XRAY USE ONLY 10:43:10 CDT CPT-45662 Venipuncture Draw Fee 17:04:55 CDT CPT-31257 Venipuncture Draw Fee 17:20:50 CDT CPT-92569 Venipuncture Draw Fee 18:00:48 CDT CPT-11929 Venipuncture Draw Fee 14:56:20 CDT CPT-JTINJ Asp/Joint Injection 18:47:02 CDT CPT-92320 Venipuncture Draw Fee 09:26:17 CDT CPT-53016 PT/INR - LAB USE ONLY 13:32:49 INSEAM TRIMMER CPT-35506 Venipuncture Draw Fee 13:32:49 INSEAM TRIMMER CPT-98313 PT/INR - LAB USE ONLY 10:34:49 INSEAM TRIMMER CPT-07637 Venipuncture Draw Fee 10:34:48 INSEAM TRIMMER CPT-11017 PT/INR - LAB USE ONLY 09:22:03 INSEAM TRIMMER CPT-88956 Venipuncture Draw Fee 09:22:02 INSEAM TRIMMER CPT-01083 Hemoccult IFOBT - LAB USE ONLY 10:27:22 CDT CPT-98062 Venipuncture Draw Fee 08:27:08 CDT CPT-19818 Liver Profile - LAB USE ONLY 08:27:07 CDT 2 CPT-60190 Microalbumin - LAB USE ONLY 08:27:07 CDT 20 25/05/09 CPT-51909 PT/INR - LAB USE ONLY 08:27:07 CDT CPT-66347 HGBA1C - LAB USE ONLY 08:27:07 CDT CPT-00177 CBC - LAB USE ONLY 08:27:07 CDT CPT-11792 Venipuncture Draw Fee 11:09:14 CDT CPT-87611 Venipuncture Draw Fee 08:32:21 INSEAM TRIMMER CPT-13047 Venipuncture Draw Fee 09:38:56 INSEAM TRIMMER CPT-97336 No Charge Offi Visit 21:36:07 CDT 1 CPT-59936 Venipuncture Draw Fee 10:13:28 INSEAM TRIMMER CPT-26157 Venipuncture Draw Fee 08:31:11 CDT CPT-65678 Aspir/Inject Med Joint 18:17:28 CDT CPT-33615 Venipuncture Draw Fee 10:13:30 CDT CPT-74670 Venipuncture Draw Fee 08:31:43 INSEAM TRIMMER CPT-JTINJ Joint Injection 18:34:50 CDT CPT-38119 Knee 3V 12:25:09 CDT CPT-14334 Venipuncture Draw Fee 12:15:57 CDT CPT-060 Medical Surveillance Exam 21:31:43 CDT 2011 CPT-46876 Venipuncture Draw Fee 08:32:05 INSEAM TRIMMER CPT-OV Office Visit 18:19:06 CDT
--- OUTSIDE RECORDS SUMMARY | 2020-01-18 14:04 | XMS REPORT | Clinical Summary ---
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 Mitch Arnol Carlitos DO Osteoarthrosis, unsp ecified whether generalized or localized, involving lower leg DIZZINESS 780.4 Resolved Imtch Arnol Carlitos DO Dizziness and giddiness CAROTID [...] and fatigue Cough, chronic 786.2 Resolved Mitch Arnlo Carlitos DO Cough Sebaceous cyst, infected 706.2 [...] TAKE 1 TABLET DAILY SITAGLIPT IN PHOSPHATE 00161125124 Active Maria Rivas RN Active INVOKANA TABS 100MG TAKE 1 TABLET DAILY CANAGLIFL OZIN 70431467817 Active Maria Rivas RN Active AMLODIPINE BESYLATE 5 MG ORAL TABLET 1 tablet by mouth daily 201 05/19/02 AMLODIPINE BESYLATE 12573651730 No Longer Active Maria Briones Active WARFARIN TABS 1MG TAKE 2 TABLETS (2 MG) DAILY WITH THE 5 MG TABLET TO EQUAL 7 MG DAILY WARFARIN SODIUM 11984294603 Active Maria Briones Active WARFARIN SODIUM 5 MG TABS TAKE 1 TABLET DAILY W ARFARIN SODIUM 11215534149 Active Allison Anthony APRN-C Active KEFLEX 500 MG ORAL CAPSULE 1 capsule by mouth three times da rocky x10 days CEPHALEXIN 91833955698 No Longer Active Maria landaverde RN Active METOPROLOL TARTRATE TABS 50MG TAKE 1 TABLET TWICE A DAY ([facility] WORK) METOPROLOL TARTRATE 51812780837 Active Maria Briones Active DOXAZOSIN MESYLATE 2 MG ORAL TABLET 1 po q day for pr ostate and blood pressure DOXAZOSIN MESYLATE 44277120347 Active Mitch Urbina DO Active LOSARTAN TABS 100MG TAKE 1 TABLET DAILY FOR BLOOD PRESSURE LOSARTAN POTASSIUM 41374525971 Active Maria Rivas RN Active FLUTICASONE PROPIONATE 50 MCG/ACT NASAL SUSPENSION 1 s pray each nostril twice daily for 1 week, then once daily FLUTICASONE UT OPIONATE 73252843982 Active Becky Sell SAND SCREENER OPERATOR Active PREDNISONE 20 MG ORAL TABLET 2 tabs daily for 3 days 1 tab d aily for 3 days PREDNISONE 85091940479 No Longer Active Becky Sell SAND SCREENER OPERATOR Active MINOXIDIL 2.5 MG ORAL TABLET 1 tablet twice daily for high b lood pressure MINOXIDIL 96007597543 Active Mitch Urbina DO Ac tive METFORMIN HCL ER 500 MG ORAL TABLET EXTENDED RELEASE 2 4 HOUR 2 tablets by mouth twice daily METFORMIN HCL 59565086469 Active Mitch Urbina DO Active GLIMEPIRIDE 4 MG ORAL TABLET 1 tablet by mouth twice daily f or diabetes GLIMEPIRIDE 43889455588 Active Mitch Urbina DO Active GLIMEPIRIDE 2 MG ORAL TABLET 1 po BID GLIMEPI RIDE 82153094314 No Longer Active Mitch Urbina DO Active PROVIGIL 200 MG ORAL TABLET 1/2 tab po q day MODA FINIL 67007766934 Active Maria Rivas RN Active FAMOTIDINE 20 MG ORAL TABLET by mouth twice a day 2017 FAMOTIDINE 07426749638 No Longer Active Mitch Urbina DO Active COLCRYS 0.6 MG ORAL TABLET 1 tab qid prn gout C OLCHICINE 53945962250 No Longer Active Mitch Urbina DO Active KEFLEX 500 MG ORAL CAPSULE 1 po qid CEPHALEXI N 96907622119 No Longer Active Mitch Urbina DO Active AMLODIPINE BESYLATE 5 MG ORAL TABLET 1 tablet by mouth daily 201 01/20/04 AMLODIPINE BESYLATE 04255636755 No Longer Active Joe fulton APRN Active MITIGARE 0.6 MG ORAL CAPSULE 2 capsules at onset of go ut pain, then take one capsule at 1 hour if symptoms persist. COLCHICINE 59 629005670 Active Mitch Urbina DO Active MECLIZINE HCL 25 MG ORAL TABLET 1 po tid 3 days, then 1/2 ta b tid 3 days MECLIZINE HCL 33452879950 No Longer Active Corey SEGURA Active ALLOPURINOL 300 MG ORAL TABLET Take 1 tablet by mouth daily 2012 ALLOPURINOL 17188262721 No Longer Active Corey SEGURA Active CLONIDINE HCL 0.1 MG ORAL TABLET 1 po bid 7 days, then 1/2 t ab po bid 7 days CLONIDINE HCL 83953681694 No Longer Active Corey SEGURA Active COUMADIN 4 MG ORAL TABLET 1 tablet daily WARFAR IN SODIUM 91604622052 No Longer Active Corey SEGURA Active POLYTRIM 86779-4.1 UNIT/ML-% OPHTHALMIC SOLUTION 1 rui p in affected eye every 3 hours while awake x 7 days POLYMYXIN B-TRIMETHOP RIM 65275670771 No Longer Active Corey SEGURA Active LOSARTAN POTASSIUM-HCTZ 100-12.5 MG ORAL TABLET 1 by m outh daily for high blood pressure LOSARTAN POTASSIUM-HCTZ 71657529527 No Longer A ctive Mitch Urbina DO Active LISINOPRIL-HYDROCHLOROTHIAZIDE 20-12.5 MG ORAL TABLET 1 tab by m outh daily LISINOPRIL-HYDROCHLOROTHIAZIDE 74696382606 No Longer Active Mitch Urbina DO Active LISINOPRIL 20 MG ORAL TABLET 1 tab po at HS LIS INOPRIL 65373809341 No Longer Active Mitch Urbina DO Active COUMADIN 5 MG ORAL TABLET 1 by mouth every other day 2 WARFARIN SODIUM 41433325032 No Longer Active Mitch Urbina DO Active COUMADIN 6 MG ORAL TABLET 1 by mouth every other day 2 WARFARIN SODIUM 41068421062 No Longer Active Mitch Urbina DO Active SIMVASTATIN 40 MG ORAL TABLET 1 tab daily at bedtime SIMVASTATIN 16511226779 Active Maria Rivas RN Active SIMVASTATIN 20 MG ORAL TABLET 1 tab daily at bedtime 2 SIMVASTATIN 49115814701 No Longer Active Mitch Urbina DO Active LOVENOX 100 MG/ML SUBCUTANEOUS SOLUTION One injection twice a da y ENOXAPARIN SODIUM 01612718447 No Longer Active Carmine Yusuf MD Active JANUVIA 100 MG ORAL TABLET 1/2 by mouth every day 2011 SITAGLIPTIN PHOSPHATE 76206155067 No Longer Active Bijal Segal RN Acti ve METFORMIN HCL 500 MG ORAL TABLET 2 by mouth twice daily METFORMIN HCL 52066623828 No Longer Active Renee Oconnor LPN Active COLCRYS 0.6 MG ORAL TABLET 1 po q 6 hours prn gout pain COLCHICINE 16406771842 No Longer Active Camila Reese Active LISINOPRIL 5 MG ORAL TABLET 1 by mouth every day 11/17 LISINOPRIL 46685036899 No Longer Active Nguyen Perez Active KLOR-CON 20 MEQ ORAL PACKET Take one by mouth daily 20 09/10/08 POTASSIUM CHLORIDE 65775337832 No Longer Active Nguyen Perez Active FUROSEMIDE 40 MG ORAL TABLET 1 by mouth daily F UROSEMIDE 43922941484 No Longer Active Nguyen Perez Active PROVIGIL 100 MG ORAL TABLET Take one by mouth daily 20 08/20/04 MODAFINIL 81921124996 No Longer Active Mitch Urbina DO Active BACTRIM DS 800-160 MG ORAL TABLET 1 tab by mouth twice daily 201 10/19/09 TRIMETHOPRIM-SULFAMETHOXAZOLE 13243393885 No Longer Active C alberto Hays MD Active ADULT ASPIRIN LOW STRENGTH 81 MG ORAL TABLET DISINTEGR ATING 1 by mouth every daily ASPIRIN 44077623334 Active Mitch Urbina DO Ac tive BACTRIM DS 800-160 MG ORAL TABLET 1 tab by mouth twice daily 201 10/19/09 BACTRIM DS 800-160 MG ORAL TABLET 468424 TRIMETHOPRIM-SULFAMETHOXAZOLE Inactive PROVIGIL 100 MG ORAL TABLET Take one by mouth daily 08/20/04 PROVIGIL 100 MG ORAL TABLET 345208 MODAFINIL Inactive FUROSEMIDE 40 MG ORAL TABLET 1 by mouth daily FUROSEMIDE 40 MG ORAL TABLET 799885 FUROSEMIDE Inactive KLOR-CON 20 MEQ ORAL PACKET Take one by mouth daily 09/10/08 KLOR- CON 20 MEQ ORAL PACKET 0154110 POTASSIUM CHLORIDE Inactive LISINOPRIL 5 MG ORAL TABLET 1 by mouth every day 11/17 LISINOPRIL 5 MG ORAL TABLET 656589 LISINOPRIL Inactive COLCRYS 0.6 MG ORAL TABLET 1 po q 6 hours prn gout pain COLCRYS 0.6 MG ORAL TABLET 185717 COLCHICINE Inactive JANUVIA 100 MG ORAL TABLET 1/2 by mouth every day 2011 JANUVIA 100 MG ORAL TABLET SITAGLIPTIN PHOSPHATE Inactive SIMVASTATIN 20 MG ORAL TABLET 1 tab daily at bedtime 2 SIMVASTATIN 20 MG ORAL TABLET 182494 SIMVASTATIN Inactive COUMADIN 6 MG ORAL TABLET 1 by mouth every other day 2 COUMADIN 6 MG ORAL TABLET 287449 WARFARIN SODIUM Inactive COUMADIN 5 MG ORAL TABLET 1 by mouth every other day 2 COUMADIN 5 MG ORAL TABLET 937996 WARFARIN SODIUM Inactive LISINOPRIL 20 MG ORAL TABLET 1 tab po at HS LISINOPRIL 20 MG ORAL TABLET 949362 LISINOPRIL Inactive LISINOPRIL-HYDROCHLOROTHIAZIDE 20-12.5 MG ORAL TABLET 1 tab by m outh daily LISINOPRIL-HYDROCHLOROTHIAZIDE 20-12.5 MG ORAL TABLET 869220 LISINOPRIL-HYDROCHLOROTHIAZIDE Inactive POLYTRIM 06963-9.1 UNIT/ML-% OPHTHALMIC SOLUTION 1 rui p in affected eye every 3 hours while awake x 7 days POLYTRIM 1000 0-0.1 UNIT/ML-% OPHTHALMIC SOLUTION 081991 POLYMYXIN B-TRIMETHOPRIM Inactive COUMADIN 4 MG ORAL TABLET 1 tablet daily COUMADIN 4 MG ORAL TABLET 638798 WARFARIN SODIUM Inactive CLONIDINE HCL 0.1 MG ORAL TABLET 1 po bid 7 days, then 1/2 t ab po bid 7 days CLONIDINE HCL 0.1 MG ORAL TABLET 043973 CLONIDIN E HCL Inactive ALLOPURINOL 300 MG ORAL TABLET Take 1 tablet by mouth daily 2012 ALLOPURINOL 300 MG ORAL TABLET 809324 ALLOPURINOL I nactive MECLIZINE HCL 25 MG ORAL TABLET 1 po tid 3 days, then 1/2 ta b tid 3 days MECLIZINE HCL 25 MG ORAL TABLET 331785 MECLIZINE HCL Inactive AMLODIPINE BESYLATE 5 MG ORAL TABLET 1 tablet by mouth daily 201 01/20/04 AMLODIPINE BESYLATE 5 MG ORAL TABLET 641240 AMLODIPINE BESYLATE Inactive KEFLEX 500 MG ORAL CAPSULE 1 po qid K EFLEX 500 MG ORAL CAPSULE 384620 CEPHALEXIN Inactive COLCRYS 0.6 MG ORAL TABLET 1 tab qid prn gout COLCRYS 0.6 MG ORAL TABLET 221098 COLCHICINE Inactive FAMOTIDINE 20 MG ORAL TABLET by mouth twice a day 2017 FAMOTIDINE 20 MG ORAL TABLET 175693 FAMOTIDINE Inactive GLIMEPIRIDE 2 MG ORAL TABLET 1 po BID GLIMEPIRIDE 2 MG ORAL TABLET 979569 GLIMEPIRIDE Inactive AMLODIPINE BESYLATE 5 MG ORAL TABLET 1 tablet by mouth daily 201 05/19/02 AMLODIPINE BESYLATE 5 MG ORAL TABLET 323618 AMLODIPINE BESYLATE Inactive LOVENOX 100 MG/ML SUBCUTANEOUS SOLUTION One injection twice a da y LOVENOX 100 MG/ML SUBCUTANEOUS SOLUTION 671804 ENOXAPAR IN SODIUM Inactive PREDNISONE 20 MG ORAL TABLET 2 tabs daily for 3 days 1 tab d aily for 3 days PREDNISONE 20 MG ORAL TABLET 925967 PREDNISONE Inactive KEFLEX 500 MG ORAL CAPSULE 1 capsule by mouth three times da rocky x10 days KEFLEX 500 MG ORAL CAPSULE 422062 CEPHALEXIN I nactive Advance Directives Directive Description [...] - Chem istry sodium, serum 138 mmol/L 671-356 1086/11/07 potassium, serum 4.5 mmol/L 3.5-5.2 chloride, serum [...] Panel - Chemistry sodium, serum 140 mmol/L 842-304 6393/11/01 carbon dioxide, venous blood 28.6 mmol/L 21.0-32 [...] mg/dL Encounters Code Encounter Date Provider Facility CPT-39825 [id number] Vst-Est Level IV 16:21:22 CDT Stephy Ambrose [facility] CPT-87657 Level 3 Est. Patient 15:18:36 CDT Becky andersno [facility] CPT-31000 [id number] Vst-Est Level IV 10:06:35 CDT Bru robinson Ambrose [facility]-64543 00611-Jdy Vst-Est Level IV 10:52:00 CALCINER FEEDER Stephy Ambrose [facility] CPT-65194 Level 3 Est. Patient 18:25:53 CDT Mitch luis [facility] CPT-65762 Level 3 Est. Patient 19:43:34 CDT Mitch luis [facility] CPT-15220 Level 4 Est. Patient 09:30:18 CDT Mitch luis [facility] CPT-75936 Level 3 Est. Patient 15:10:14 CDT Joe Gomez razell [facility] CPT-81819 Level 3 Est. Patient 15:03:46 CDT Devonsonya Jason kamara [facility]-11358 Level 3 Est. Patient 14:21:06 CDT Mitch Arnol Castellano ee [facility] CPT-45299 Level 3 Est. Patient 14:52:06 CDT Devonsonya Jason kamara [facility]-10150 Level 3 Est. Patient 09:34:30 CALCINER FEEDER Mitch W L ee [facility] CPT-44284 Level 3 Est. Patient 09:37:15 CDT Mitch W L ee [facility]-46953 Level 3 Est. Patient 17:01:00 CALCINER FEEDER Mitch Ambrose L ee [facility] CPT-33706 Level 3 Est. Patient 13:53:19 CALCINER FEEDER Mitch W L janelle [facility] CPT-74510 Level 3 Est. Patient 19:19:37 CALCINER FEEDER Mitch W L ee [facility] CPT-62664 Level 3 Est. Patient 13:25:53 CALCINER FEEDER Tavo toure MD [facility]-40276 Level 3 Est. Patient 18:17:28 CDT Mitch W L ee [facility] CPT-77691 Level 3 Est. Patient 15:22:57 CDT Mitch W L ee [facility]-85485 Level 3 Est. Patient 18:21:50 CDT Mitch W L ee [facility] CPT-11077 Level 3 Est. Patient 18:20:38 CDT Mitch W L ee [facility]-25455 Level 3 Est. Patient 15:37:55 CDT Mitch W L ee [facility] CPT-53110 Level 2 Est. Patient 15:54:44 CDT Carmine benton MD [facility]-67085 Level 3 Est. Patient 21:46:01 CALCINER FEEDER Mitch Arnol Nona luis [facility] CPT-40745 Level 3 Est. Patient 22:15:50 CDT Mitch Arnol Nona luis [facility] CPT-52213 Level 3 Est. Patient 10:48:15 CDT Mitch luis [facility] CPT-51651 Level 3 Est. Patient 23:20:57 CDT Tavo toure MD [facility] CPT-28195 Level 3 Est. Patient 16:26:13 CDT Mitch luis [facility] Procedures Code Procedure Name Date Entry Date Standard Desc ription CPT-35474 Venipuncture Draw Fee 10:44:42 CALCINER FEEDER CPT-20600 Venipuncture Draw Fee 14:46:55 CALCINER FEEDER CPT-71120 Venipuncture Draw Fee 08:26:21 CDT CPT-92144 Venous Duplex Left Leg XRAY USE ONLY 10:43:10 CDT CPT-93993 Venipuncture Draw Fee 17:04:55 CDT CPT-04324 Venipuncture Draw Fee 17:20:50 CDT CPT-49565 Venipuncture Draw Fee 18:00:48 CDT CPT-37676 Venipuncture Draw Fee 14:56:20 CDT CPT-JTINJ Asp/Joint Injection 18:47:02 CDT CPT-47475 Venipuncture Draw Fee 09:26:17 CDT CPT-26586 PT/INR - LAB USE ONLY 13:32:49 CALCINER FEEDER CPT-89920 Venipuncture Draw Fee 13:32:49 CALCINER FEEDER CPT-77417 PT/INR - LAB USE ONLY 10:34:49 CALCINER FEEDER CPT-50169 Venipuncture Draw Fee 10:34:48 CALCINER FEEDER CPT-66917 PT/INR - LAB USE ONLY 09:22:03 CALCINER FEEDER CPT-59183 Venipuncture Draw Fee 09:22:02 CALCINER FEEDER CPT-71337 Hemoccult IFOBT - LAB USE ONLY 10:27:22 CDT CPT-25075 Venipuncture Draw Fee 08:27:08 CDT CPT-58241 Liver Profile - LAB USE ONLY 08:27:07 CDT 2 CPT-20530 Microalbumin - LAB USE ONLY 08:27:07 CDT 20 25/05/09 CPT-11250 PT/INR - LAB USE ONLY 08:27:07 CDT CPT-35688 HGBA1C - LAB USE ONLY 08:27:07 CDT CPT-40214 CBC - LAB USE ONLY 08:27:07 CDT CPT-29568 Venipuncture Draw Fee 11:09:14 CDT CPT-91292 Venipuncture Draw Fee 08:32:21 CALCINER FEEDER CPT-83692 Venipuncture Draw Fee 09:38:56 CALCINER FEEDER CPT-80804 No Charge Offi Visit 21:36:07 CDT 1 CPT-28350 Venipuncture Draw Fee 10:13:28 CALCINER FEEDER CPT-47704 Venipuncture Draw Fee 08:31:11 CDT CPT-81159 Aspir/Inject Med Joint 18:17:28 CDT CPT-25926 Venipuncture Draw Fee 10:13:30 CDT CPT-12682 Venipuncture Draw Fee 08:31:43 CALCINER FEEDER CPT-JTINJ Joint Injection 18:34:50 CDT CPT-49021 Knee 3V 12:25:09 CDT CPT-05150 Venipuncture Draw Fee 12:15:57 CDT CPT-060 Medical Surveillance Exam 21:31:43 CDT 2011 CPT-01249 Venipuncture Draw Fee 08:32:05 CALCINER FEEDER CPT-OV Office Visit 18:19:06 CDT
--- OUTSIDE RECORDS SUMMARY | 2020-01-18 14:04 | XMS REPORT | Continuity of Care Document ---
Author Author [facility] Organization [facility] Address [address] [place] [address] Phone Unavailable Care Team Providers Care Sheet Writer Name Role Phone DO MITCH MELÉNDEZ PCP [...] 1:53pm 32.6 9.1-12. 1 MAIN LAB, [address] [facility] [address] [facility] [address] Prothromb Time International Ratio September 17, 2019 1:53pm 3.03 1.0-2.0 MAIN LAB, [address] [facility] [address] [place] [address] Sodium Level September 17, 2019 1:53pm 142 137-145 MAIN LAB, [address] [address] [place] [address] Potassium Level September 17, 2019 1:53pm 4.4 3.5-5.1 MAIN LAB, [address] [address] [place] [address] Chloride Level September 17, 2019 1:53pm 104 98-107 MAIN LAB, [address] [address] [place] [address] Carbon Dioxide Level September 17, 2019 1:53pm 29.4 22- 30 MAIN LAB, [address] [address] [place] [address] Anion Gap September 17, 2019 1:53pm 13.0 8-16 MAIN LAB, [address] [address] [place] [address] Blood Urea Nitrogen September 17, 2019 1:53pm 25 9-20 MAIN LAB, [address] [address] [place] [address] Creatinine September 17, 2019 1:53pm 1.05 0.66-1.25 MAIN LAB, [address] [address] [place] [address] Est Glomerular Filtrat Rate mL/min September 17, 2019 1:53pm 70.45 GFR NORMALS:Stage I: GFR >90Stage II GFR 60-89Stage III GFR 30-60Stage IV: GFR 15-29Stage V: GFR <15 MAIN LAB, [address] [address] [place] [address] BUN/Creatinine Ratio September 17, 2019 1:53pm 23.80 MAIN LAB, [address] [address] [place] [address] Glucose Level September 17, 2019 1:53pm 119 74-106 MAIN LAB, [facility] [address] [place] [address] Calcium Level September 17, 2019 1:53pm 9.9 8.4-10.2 MAIN LAB, [address] [address] [place] [address] Health Concerns No known health concerns documented Encounters Encounter Location(s) Arrival/Admit Date Discharge/Depart Date Provider(s) Registered Recurring [facility] October 11, 2019 9:54am TIFF MC APRN Discharged [facility] September 27, 2019 1 :03pm September 27, 2019 4:30pm TIFF [facility] INTERNAL SECURITY MANAGER Discharged Formerly [facility] August 13, 2019 8: 42am August 30, 2019 4:30pm TIFF MC INTERNAL SECURITY MANAGER Discharged Formerly [facility] August 09, 2019 12 :38pm August 09, 2019 4:30pm TIFF MC INTERNAL SECURITY MANAGER Assessments No Assessments Information Available Functional Status No Functional Status information available Goals No Goals Information Available Immunizations No Immunization Information Available Mental Status No Mental Status Information Available Medical Equipment No Medical Equipment Information available Insurance Providers Guarantor Mitch Crandall Address [address] [place] [address] Contact Info. Home Phone: Payer Policy Id Coverage Id Subscriber's Name Subscriber Id Effect juan Date Expiration Date [facility] [id number] Mitch Crandall [id number] Plan of Treatment Future Tests Future scheduled [...]
--- OUTSIDE RECORDS SUMMARY | 2020-01-18 14:05 | XMS REPORT | Clinical Summary ---
Author Author Admin, Mitch Leon Organization [facility] Address Unknown Phone Unavailable Allergies, Adverse [...] Coronary atherosclerosis of unspecified type of vessel, [place] or graft EDEMA 782.3 Resolved Mitch Urbina [...] Mass Index 32.0-32.9 Adult Active Br ucponce Arnol Urbina DO Body Mass Index 32.0-32.9, adult Obesity Class I (BMI 30-34.9) Active Mitch Ambrose Carlitos VELASQUEZ Obesity, unspecified Bronchitis, allergic 493.90 Active Becky Sell A PRN Asthma, unspecified Influenza Vaccination for Prophylaxis V04.81 Inactive Mitch Urbina Need for prophylactic vaccin ation and inoculation against influenza Hypercalcemia 275.42 Active Adrianna Isidro MA Hypercalcemia Abnormal nuclear stress test 794.39 Inactive Mitch Arnol Urbina DO Other nonspecific abnormal function stud y of cardiovascular system SEROMA ICD-998.13 Inactive Mitch Arnol Carlitos VELASQUEZ REACTIVE HYPOGLYCEMIA ICD-251.2 Inactive Mitch Urbina DO LONG-TERM (CURRENT) USE OF ANTICOAGULANTS ICD-V58.61 Inactive Mitch Urbina DO EDEMA ICD-782.3 Inactive Mitch Arnol Carlitos DO DIZZINESS ICD-780.4 Inactive Mitch Arnol Carlitos VELASQUEZ 10/23 GOUT, RIGHT WRIST ICD-274.9 Inactive Mitch [...] GROIN, LEFT ICD-682.2 Inactive Zoya Urbina DO Influenza Vaccination for Prophylaxis ICD-V04.81 9 Inactive Bhumi Robles Abnormal nuclear stress test ICD-794.39 Gunnar Isidro MA Medication List Medication Instructions Start Date Stop Date Generic Name NDC Status Provider Patient Instruction JANUVIA TABS 50MG TAKE 1 TABLET DAILY SITAGLIPT IN PHOSPHATE 84975636271 Active Maria Rivas RN Active INVOKANA TABS 100MG TAKE 1 TABLET DAILY CANAGLIFL OZIN 54179168305 Active Maria Rivas RN Active AMLODIPINE BESYLATE 5 MG ORAL TABLET 1 tablet by mouth daily 201 05/19/02 AMLODIPINE BESYLATE 07420441751 No Longer Active Maria Briones Active WARFARIN TABS 1MG TAKE 2 TABLETS (2 MG) DAILY WITH THE 5 MG TABLET TO EQUAL 7 MG DAILY WARFARIN SODIUM 95086497543 Active Maria Briones Active WARFARIN SODIUM 5 MG TABS TAKE 1 TABLET DAILY W ARFARIN SODIUM 16618823642 Active Allison BALC Active KEFLEX 500 MG ORAL CAPSULE 1 capsule by mouth three times da rocky x10 days CEPHALEXIN 43217237269 No Longer Active Maria landaverde RN Active METOPROLOL TARTRATE TABS 50MG TAKE 1 TABLET TWICE A DAY ([facility]) METOPROLOL TARTRATE 12721006839 Active Maria Briones Active DOXAZOSIN MESYLATE 2 MG ORAL TABLET 1 po q day for pr ostate and blood pressure DOXAZOSIN MESYLATE 20307726026 Active Mitch Urbina DO Active LOSARTAN TABS 100MG TAKE 1 TABLET DAILY FOR BLOOD PRESSURE LOSARTAN POTASSIUM 72658486318 Active Maria Rivas RN Active FLUTICASONE PROPIONATE 50 MCG/ACT NASAL SUSPENSION 1 s pray each nostril twice daily for 1 week, then once daily FLUTICASONE MA OPIONATE 71528046607 Active Becky Sell LEATHER CARVER Active PREDNISONE 20 MG ORAL TABLET 2 tabs daily for 3 days 1 tab d aily for 3 days PREDNISONE 70623504740 No Longer Active Becky Sell LEATHER CARVER Active MINOXIDIL 2.5 MG ORAL TABLET 1 tablet twice daily for high b lood pressure MINOXIDIL 04833514430 Active Mitch Urbina DO Ac tive METFORMIN HCL ER 500 MG ORAL TABLET EXTENDED RELEASE 2 4 HOUR 2 tablets by mouth twice daily METFORMIN HCL 10529304790 Active Mitch Urbina DO Active GLIMEPIRIDE 4 MG ORAL TABLET 1 tablet by mouth twice daily f or diabetes GLIMEPIRIDE 03933034131 Active Mitch Urbina DO Active GLIMEPIRIDE 2 MG ORAL TABLET 1 po BID GLIMEPI RIDE 88501057952 No Longer Active Mitch Urbina DO Active PROVIGIL 200 MG ORAL TABLET 1/2 tab po q day MODA FINIL 85751638627 Active Maria Rivas RN Active FAMOTIDINE 20 MG ORAL TABLET by mouth twice a day 2017 FAMOTIDINE 30721626447 No Longer Active Mitch Urbina DO Active COLCRYS 0.6 MG ORAL TABLET 1 tab qid prn gout C OLCHICINE 70487671099 No Longer Active Mitch Urbina DO Active KEFLEX 500 MG ORAL CAPSULE 1 po qid CEPHALEXI N 06303625227 No Longer Active Mitch Urbina DO Active AMLODIPINE BESYLATE 5 MG ORAL TABLET 1 tablet by mouth daily 201 01/20/04 AMLODIPINE BESYLATE 42159003703 No Longer Active Joe fulton APRN Active MITIGARE 0.6 MG ORAL CAPSULE 2 capsules at onset of go ut pain, then take one capsule at 1 hour if symptoms persist. COLCHICINE 59 994350326 Active Mitch Urbina DO Active MECLIZINE HCL 25 MG ORAL TABLET 1 po tid 3 days, then 1/2 ta b tid 3 days MECLIZINE HCL 53439228804 No Longer Active Corey SEGURA Active ALLOPURINOL 300 MG ORAL TABLET Take 1 tablet by mouth daily 2012 ALLOPURINOL 31154141672 No Longer Active Corey SEGURA Active CLONIDINE HCL 0.1 MG ORAL TABLET 1 po bid 7 days, then 1/2 t ab po bid 7 days CLONIDINE HCL 45092838546 No Longer Active Corey SEGURA Active COUMADIN 4 MG ORAL TABLET 1 tablet daily WARFAR IN SODIUM 82828275371 No Longer Active Corey SEGURA Active POLYTRIM 92005-5.1 UNIT/ML-% OPHTHALMIC SOLUTION 1 rui p in affected eye every 3 hours while awake x 7 days POLYMYXIN B-TRIMETHOP RIM 75034458322 No Longer Active Corey SEGURA Active LOSARTAN POTASSIUM-HCTZ 100-12.5 MG ORAL TABLET 1 by m outh daily for high blood pressure LOSARTAN POTASSIUM-HCTZ 19433438832 No Longer A ctive Mitch Urbina DO Active LISINOPRIL-HYDROCHLOROTHIAZIDE 20-12.5 MG ORAL TABLET 1 tab by m outh daily LISINOPRIL-HYDROCHLOROTHIAZIDE 65904804006 No Longer Active Mitch Urbina DO Active LISINOPRIL 20 MG ORAL TABLET 1 tab po at HS LIS INOPRIL 44848993833 No Longer Active Mitch Urbina DO Active COUMADIN 5 MG ORAL TABLET 1 by mouth every other day 2 WARFARIN SODIUM 62657926642 No Longer Active Mitch Urbina DO Active COUMADIN 6 MG ORAL TABLET 1 by mouth every other day 2 WARFARIN SODIUM 58227906383 No Longer Active Mitch Urbina DO Active SIMVASTATIN 40 MG ORAL TABLET 1 tab daily at bedtime SIMVASTATIN 84319330518 Active Mariajoey Rivas RN Active SIMVASTATIN 20 MG ORAL TABLET 1 tab daily at bedtime 2 SIMVASTATIN 64982800407 No Longer Active Mitch Urbina DO Active LOVENOX 100 MG/ML SUBCUTANEOUS SOLUTION One injection twice a da y ENOXAPARIN SODIUM 62187790915 No Longer Active Carmine Yusuf MD Active JANUVIA 100 MG ORAL TABLET 1/2 by mouth every day 2011 SITAGLIPTIN PHOSPHATE 31863068621 No Longer Active Bijal Segal RN Acti ve METFORMIN HCL 500 MG ORAL TABLET 2 by mouth twice daily METFORMIN HCL 92739723709 No Longer Active Renee Oconnor LPN Active COLCRYS 0.6 MG ORAL TABLET 1 po q 6 hours prn gout pain COLCHICINE 46737337205 No Longer Active Camila Reese Active LISINOPRIL 5 MG ORAL TABLET 1 by mouth every day 11/17 LISINOPRIL 76397009855 No Longer Active Nguyen Perez Active KLOR-CON 20 MEQ ORAL PACKET Take one by mouth daily 20 09/10/08 POTASSIUM CHLORIDE 54940708994 No Longer Active Nguyne Perez Active FUROSEMIDE 40 MG ORAL TABLET 1 by mouth daily F UROSEMIDE 86117313031 No Longer Active Nguyen Perez Active PROVIGIL 100 MG ORAL TABLET Take one by mouth daily 08/20/04 MODAFINIL 66572255393 No Longer Active Mitch Urbina DO Active BACTRIM DS 800-160 MG ORAL TABLET 1 tab by mouth twice daily 201 10/19/09 TRIMETHOPRIM-SULFAMETHOXAZOLE 62551719908 No Longer Active C alberto Hays MD Active ADULT ASPIRIN LOW STRENGTH 81 MG ORAL TABLET DISINTEGR ATING 1 by mouth every daily ASPIRIN 58140576045 Active Mitch W Carlitos DO Ac tive BACTRIM DS 800-160 MG ORAL TABLET 1 tab by mouth twice daily 201 10/19/09 BACTRIM DS 800-160 MG ORAL TABLET 091794 TRIMETHOPRIM-SULFAMETHOXAZOLE Inactive PROVIGIL 100 MG ORAL TABLET Take one by mouth daily 08/20/04 PROVIGIL 100 MG ORAL TABLET 062404 MODAFINIL Inactive FUROSEMIDE 40 MG ORAL TABLET 1 by mouth daily FUROSEMIDE 40 MG ORAL TABLET 555311 FUROSEMIDE Inactive KLOR-CON 20 MEQ ORAL PACKET Take one by mouth daily 09/10/08 KLOR- CON 20 MEQ ORAL PACKET 9779748 POTASSIUM CHLORIDE Inactive LISINOPRIL 5 MG ORAL TABLET 1 by mouth every day 11/17 LISINOPRIL 5 MG ORAL TABLET 332355 LISINOPRIL Inactive COLCRYS 0.6 MG ORAL TABLET 1 po q 6 hours prn gout pain COLCRYS 0.6 MG ORAL TABLET 782662 COLCHICINE Inactive JANUVIA 100 MG ORAL TABLET 1/2 by mouth every day 2011 JANUVIA 100 MG ORAL TABLET SITAGLIPTIN PHOSPHATE Inactive SIMVASTATIN 20 MG ORAL TABLET 1 tab daily at bedtime 2 SIMVASTATIN 20 MG ORAL TABLET 828499 SIMVASTATIN Inactive COUMADIN 6 MG ORAL TABLET 1 by mouth every other day 2 COUMADIN 6 MG ORAL TABLET 028192 WARFARIN SODIUM Inactive COUMADIN 5 MG ORAL TABLET 1 by mouth every other day 2 COUMADIN 5 MG ORAL TABLET 706040 WARFARIN SODIUM Inactive LISINOPRIL 20 MG ORAL TABLET 1 tab po at HS LISINOPRIL 20 MG ORAL TABLET 986249 LISINOPRIL Inactive LISINOPRIL-HYDROCHLOROTHIAZIDE 20-12.5 MG ORAL TABLET 1 tab by m outh daily LISINOPRIL-HYDROCHLOROTHIAZIDE 20-12.5 MG ORAL TABLET 092770 LISINOPRIL-HYDROCHLOROTHIAZIDE Inactive POLYTRIM 27502-9.1 UNIT/ML-% OPHTHALMIC SOLUTION 1 rui p in affected eye every 3 hours while awake x 7 days POLYTRIM 1000 0-0.1 UNIT/ML-% OPHTHALMIC SOLUTION 268968 POLYMYXIN B-TRIMETHOPRIM Inactive COUMADIN 4 MG ORAL TABLET 1 tablet daily COUMADIN 4 MG ORAL TABLET 920702 WARFARIN SODIUM Inactive CLONIDINE HCL 0.1 MG ORAL TABLET 1 po bid 7 days, then 1/2 t ab po bid 7 days CLONIDINE HCL 0.1 MG ORAL TABLET 858179 CLONIDIN E HCL Inactive ALLOPURINOL 300 MG ORAL TABLET Take 1 tablet by mouth daily 2012 ALLOPURINOL 300 MG ORAL TABLET 099052 ALLOPURINOL I nactive MECLIZINE HCL 25 MG ORAL TABLET 1 po tid 3 days, then 1/2 ta b tid 3 days MECLIZINE HCL 25 MG ORAL TABLET 137960 MECLIZINE HCL Inactive AMLODIPINE BESYLATE 5 MG ORAL TABLET 1 tablet by mouth daily 201 01/20/04 AMLODIPINE BESYLATE 5 MG ORAL TABLET 636404 AMLODIPINE BESYLATE Inactive KEFLEX 500 MG ORAL CAPSULE 1 po qid K EFLEX 500 MG ORAL CAPSULE 083440 CEPHALEXIN Inactive COLCRYS 0.6 MG ORAL TABLET 1 tab qid prn gout COLCRYS 0.6 MG ORAL TABLET 335223 COLCHICINE Inactive FAMOTIDINE 20 MG ORAL TABLET by mouth twice a day 2017 FAMOTIDINE 20 MG ORAL TABLET 719967 FAMOTIDINE Inactive GLIMEPIRIDE 2 MG ORAL TABLET 1 po BID GLIMEPIRIDE 2 MG ORAL TABLET 655316 GLIMEPIRIDE Inactive AMLODIPINE BESYLATE 5 MG ORAL TABLET 1 tablet by mouth daily 201 05/19/02 AMLODIPINE BESYLATE 5 MG ORAL TABLET 366128 AMLODIPINE BESYLATE Inactive LOVENOX 100 MG/ML SUBCUTANEOUS SOLUTION One injection twice a da y LOVENOX 100 MG/ML SUBCUTANEOUS SOLUTION 696456 ENOXAPAR IN SODIUM Inactive PREDNISONE 20 MG ORAL TABLET 2 tabs daily for 3 days 1 tab d aily for 3 days PREDNISONE 20 MG ORAL TABLET 125832 PREDNISONE Inactive KEFLEX 500 MG ORAL CAPSULE 1 capsule by mouth three times da rocky x10 days KEFLEX 500 MG ORAL CAPSULE 629834 CEPHALEXIN I nactive Advance Directives Directive Description [...] Metabolic Panel - Chem istry potassium, serum 4.5 mmol/L 3.5-5.2 urea nitrogen, blood 25 mg/dL 7-18 creatinine, serum 0.95 mg/dL 0.60-1.30 Estimated Glomerular Filtration Rate (calc) 84 (?) mL/min/1.73m2 = OR > 60 mL/min chloride, serum 100 mmol/L 98-107 carbon dioxide, venous blood 30.1 mmol/L 21.0-32 .0 blood glucose 120 mg/dL 65-95 calcium, serum 11.0 mg/dL 8.5-10.1 sodium, serum 138 mmol/L 136-145 Lab Report: Calcium - Chemistry calcium, serum 11.0 mg/dL 8.5-10.1 calcium, serum 10.9 mg/dL 8.5-10.1 Lab Report: CBC W/DIFF, Comp. Metabolic Panel - Chemistry sodium, serum 140 mmol/L 585-670 3583/11/01 carbon dioxide, venous blood 28.6 mmol/L 21.0-32 [...] mg/dL Encounters Code Encounter Date Provider Facility CPT-21840 [id number] Vst-Est Level IV 16:21:22 CDT Bru ce W [facility] CPT-42542 Level 3 Est. Patient 15:18:36 CDT Becky anderson APRN [facility] CPT-46437 [id number] Vst-Est Level IV 10:06:35 CDT Bru ce W [facility] CPT-16536 [id number]-Cie Vst-Est Level IV 10:52:00 MARINE STEWARD Bru robinson W [facility] CPT-19355 Level 3 Est. Patient 18:25:53 CDT Mitch W L [facility] CPT-29559 Level 3 Est. Patient 19:43:34 CDT Mitch luis [facility] CPT-61301 Level 4 Est. Patient 09:30:18 CDT Mitch luis [facility] CPT-66397 Level 3 Est. Patient 15:10:14 CDT Devonujstincarlitos Gomez [facility] CPT-39101 Level 3 Est. Patient 15:03:46 CDT Devonsonya Jason [facility] CPT-79525 Level 3 Est. Patient 14:21:06 CDT Mitch luis [facility]-61157 Level 3 Est. Patient 14:52:06 CDT Joe Jason [facility] CPT-00045 Level 3 Est. Patient 09:34:30 MAR[employer] STEWARD Mitch luis [facility]-53829 Level 3 Est. Patient 09:37:15 CDT Mitch luis [facility] CPT-55768 Level 3 Est. Patient 17:01:00 MARINE STEWARD Mitch luis [facility] CPT-35652 Level 3 Est. Patient 13:53:19 MARINE STEWARD Mitch luis [facility] CPT-94975 Level 3 Est. Patient 19:19:37 MARINE STEWARD Mitch luis [facility] CPT-73804 Level 3 Est. Patient 13:25:53 [employer]ARD Tavo toure MD [facility] CPT-73793 Level 3 Est. Patient 18:17:28 CDT Mitch luis [facility] CPT-87219 Level 3 Est. Patient 15:22:57 CDT Mitch luis [facility] CPT-19382 Level 3 Est. Patient 18:21:50 CDT Mitch luis [facility] CPT-00311 Level 3 Est. Patient 18:20:38 CDT Mitch luis [facility] CPT-09164 Level 3 Est. Patient 15:37:55 CDT Mitch luis [facility] CPT-23040 Level 2 Est. Patient 15:54:44 CDT Carmine benton MD [facility] CPT-75641 Level 3 Est. Patient 21:46:01 MARINE STEWARD Mitch luis [facility] CPT-03366 Level 3 Est. Patient 22:15:50 CDT Mitch luis [facility] CPT-97930 Level 3 Est. Patient 10:48:15 CDT Mitch luis [facility] CPT-48196 Level 3 Est. Patient 23:20:57 CDT Tavo toure MD [facility] CPT-34699 Level 3 Est. Patient 16:26:13 CDT Mitch luis [facility] Procedures Code Procedure Name Date Entry Date Standard Desc ription CPT-92473 Venipuncture Draw Fee 10:44:42 MAR[employer] STEWARD CPT-19413 Venipuncture Draw Fee 14:46:55 [employer] CPT-06601 Venipuncture Draw Fee 08:26:21 CDT CPT-12269 Venous Duplex Left Leg XRAY USE ONLY 10:43:10 CDT CPT-46140 Venipuncture Draw Fee 17:04:55 CDT CPT-69835 Venipuncture Draw Fee 17:20:50 CDT CPT-49258 Venipuncture Draw Fee 18:00:48 CDT CPT-76856 Venipuncture Draw Fee 14:56:20 CDT CPT-JTINJ Asp/Joint Injection 18:47:02 CDT CPT-79383 Venipuncture Draw Fee 09:26:17 CDT CPT-98196 PT/INR - LAB USE ONLY 13:32:49 [employer] CPT-20306 Venipuncture Draw Fee 13:32:49 [employer] CPT-20815 PT/INR - LAB USE ONLY 10:34:49 [employer] CPT-78592 Venipuncture Draw Fee 10:34:48 [employer] CPT-08836 PT/INR - LAB USE ONLY 09:22:03 [employer]EWARD CPT-87788 Venipuncture Draw Fee 09:22:02 [employer]EW[employer] CPT-70129 Hemoccult IFOBT - LAB USE ONLY 10:27:22 CDT CPT-58055 Venipuncture Draw Fee 08:27:08 CDT CPT-73100 Liver Profile - LAB USE ONLY 08:27:07 CDT 2 CPT-64218 Microalbumin - LAB USE ONLY 08:27:07 CDT 20 25/05/09 CPT-99492 PT/INR - LAB USE ONLY 08:27:07 CDT CPT-26721 HGBA1C - LAB USE ONLY 08:27:07 CDT CPT-89472 CBC - LAB USE ONLY 08:27:07 CDT CPT-79132 Venipuncture Draw Fee 11:09:14 CDT CPT-28990 Venipuncture Draw Fee 08:32:21 MARINE STEWARD CPT-58374 Venipuncture Draw Fee 09:38:56 [employer]EWARD CPT-59296 No Charge Offi Visit 21:36:07 CDT 1 CPT-35102 Venipuncture Draw Fee 10:13:28 MARINE STEWARD CPT-44487 Venipuncture Draw Fee 08:31:11 CDT CPT-72887 Aspir/Inject Med Joint 18:17:28 CDT CPT-47752 Venipuncture Draw Fee 10:13:30 CDT CPT-72395 Venipuncture Draw Fee 08:31:43 MARINE STEWARD CPT-JTINJ Joint Injection 18:34:50 CDT CPT-04287 Knee 3V 12:25:09 CDT CPT-07234 Venipuncture Draw Fee 12:15:57 CDT CPT-060 Medical Surveillance Exam 21:31:43 CDT 2011 CPT-19277 Venipuncture Draw Fee 08:32:05 MARINE STEWARD CPT-OV Office Visit 18:19:06 CDT
--- OUTSIDE RECORDS SUMMARY | 2020-01-18 14:05 | XMS REPORT | Clinical Summary ---
Author Author Admin, Mitch Leon Organization [facility] Address Unknown Phone Unavailable Allergies, Adverse Reactions, [...] Sebaceous cyst, infected 706.2 Resolved Mitch W Cralitos DO Sebaceous cyst Cellulitis 682.9 Resolved Mitch [...] Inactive Mitch Urbina DO EDEMA ICD-782.3 Inactive Imtch Arnol Urbina DIZZINESS ICD-780.4 Inactive Mitch Urbina DO 10/23 GOUT, RIGHT WRIST ICD-274.9 Inactive Mitch Grover e BRUISE ICD-924.9 Inactive Mitch Urbina DO OLECRANON BURSITIS, RIGHT ICD-726.33 Inactive Mitch Urbina DO UNSPECIFIED ANEMIA ICD-285.9 Inactive Mitch Ambrose Nona luis DO Malaise and fatigue ICD-780.79 Inactive Mitch Ambrose Carlitos DO Cough, chronic ICD-786.2 Inactive Mitch Arnol Carlitos Tejeda O Sebaceous cyst, infected ICD-706.2 Inactive Mitch Urbina DO Cellulitis ICD-682.9 Inactive Mitch Ambrose Carlitos VELASQUEZ 10/23 Influenza Vaccination for Prophylaxis ICD-V04.81 9 Inactive Bhumi Robles Abnormal nuclear stress test ICD-794.39 Gunnar Isidro MA Medication List Medication Instructions Start Date Stop Date Generic Name NDC Status Provider Patient Instruction JANUVIA TABS 50MG TAKE 1 TABLET DAILY SITAGLIPT IN PHOSPHATE 34272149259 Active Maria Rivas RN Active INVOKANA TABS 100MG TAKE 1 TABLET DAILY CANAGLIFL OZIN 63266922779 Active Maria Rivas RN Active AMLODIPINE BESYLATE 5 MG ORAL TABLET 1 tablet by mouth daily 201 05/19/02 AMLODIPINE BESYLATE 31091684280 No Longer Active Maria Briones Active WARFARIN TABS 1MG TAKE 2 TABLETS (2 MG) DAILY WITH THE 5 MG TABLET TO EQUAL 7 MG DAILY WARFARIN SODIUM 75882647940 Active Maria Briones Active WARFARIN SODIUM 5 MG TABS TAKE 1 TABLET DAILY W ARFARIN SODIUM 60091337545 Active Allison BALC Active KEFLEX 500 MG ORAL CAPSULE 1 capsule by mouth three times da rocky x10 days CEPHALEXIN 62536650847 No Longer Active Maria landaverde RN Active METOPROLOL TARTRATE TABS 50MG TAKE 1 TABLET TWICE A DAY ([facility]) METOPROLOL TARTRATE 15072603033 Active Maria Briones Active DOXAZOSIN MESYLATE 2 MG ORAL TABLET 1 po q day for pr ostate and blood pressure DOXAZOSIN MESYLATE 14792016995 Active Mitch Urbina DO Active LOSARTAN TABS 100MG TAKE 1 TABLET DAILY FOR BLOOD PRESSURE LOSARTAN POTASSIUM 95472684815 Active Maria Rivas RN Active FLUTICASONE PROPIONATE 50 MCG/ACT NASAL SUSPENSION 1 s pray each nostril twice daily for 1 week, then once daily FLUTICASONE SC OPIONATE 43243285193 Active Becky Sell FIGURE SKATER Active PREDNISONE 20 MG ORAL TABLET 2 tabs daily for 3 days 1 tab d aily for 3 days PREDNISONE 16392262994 No Longer Active Becky Sell FIGURE SKATER Active MINOXIDIL 2.5 MG ORAL TABLET 1 tablet twice daily for high b lood pressure MINOXIDIL 82169566341 Active Mitch Urbina DO Ac tive METFORMIN HCL ER 500 MG ORAL TABLET EXTENDED RELEASE 2 4 HOUR 2 tablets by mouth twice daily METFORMIN HCL 89643740297 Active Mitch Urbina DO Active GLIMEPIRIDE 4 MG ORAL TABLET 1 tablet by mouth twice daily f or diabetes GLIMEPIRIDE 30962742334 Active Mitch Urbina DO Active GLIMEPIRIDE 2 MG ORAL TABLET 1 po BID GLIMEPI RIDE 26907193627 No Longer Active Mitch Urbina DO Active PROVIGIL 200 MG ORAL TABLET 1/2 tab po q day MODA FINIL 83402101522 Active Maria Rivas RN Active FAMOTIDINE 20 MG ORAL TABLET by mouth twice a day 2017 FAMOTIDINE 06122141533 No Longer Active Mitch Urbina DO Active COLCRYS 0.6 MG ORAL TABLET 1 tab qid prn gout C OLCHICINE 33433126303 No Longer Active Mitch Urbina DO Active KEFLEX 500 MG ORAL CAPSULE 1 po qid CEPHALEXI N 93020055088 No Longer Active Mitch Urbina DO Active AMLODIPINE BESYLATE 5 MG ORAL TABLET 1 tablet by mouth daily 201 01/20/04 AMLODIPINE BESYLATE 92284457898 No Longer Active Joe fulton APRN Active MITIGARE 0.6 MG ORAL CAPSULE 2 capsules at onset of go ut pain, then take one capsule at 1 hour if symptoms persist. COLCHICINE 59 835855157 Active Mitch Urbina DO Active MECLIZINE HCL 25 MG ORAL TABLET 1 po tid 3 days, then 1/2 ta b tid 3 days MECLIZINE HCL 36423928392 No Longer Active Corey SEGURA Active ALLOPURINOL 300 MG ORAL TABLET Take 1 tablet by mouth daily 2012 ALLOPURINOL 96646484213 No Longer Active Corey SEGURA Active CLONIDINE HCL 0.1 MG ORAL TABLET 1 po bid 7 days, then 1/2 t ab po bid 7 days CLONIDINE HCL 38059415242 No Longer Active Corey SEGURA Active COUMADIN 4 MG ORAL TABLET 1 tablet daily WARFAR IN SODIUM 50984335255 No Longer Active Corey SEGURA Active POLYTRIM 84009-5.1 UNIT/ML-% OPHTHALMIC SOLUTION 1 rui p in affected eye every 3 hours while awake x 7 days POLYMYXIN B-TRIMETHOP RIM 68078998310 No Longer Active Corey SEGURA Active LOSARTAN POTASSIUM-HCTZ 100-12.5 MG ORAL TABLET 1 by m outh daily for high blood pressure LOSARTAN POTASSIUM-HCTZ 97342785190 No Longer A ctive Mitch Urbina DO Active LISINOPRIL-HYDROCHLOROTHIAZIDE 20-12.5 MG ORAL TABLET 1 tab by m outh daily LISINOPRIL-HYDROCHLOROTHIAZIDE 53841359085 No Longer Active Mitch Urbina DO Active LISINOPRIL 20 MG ORAL TABLET 1 tab po at HS LIS INOPRIL 61741625095 No Longer Active Mitch Urbina DO Active COUMADIN 5 MG ORAL TABLET 1 by mouth every other day 2 WARFARIN SODIUM 54131675441 No Longer Active Mitch Urbina DO Active COUMADIN 6 MG ORAL TABLET 1 by mouth every other day 2 WARFARIN SODIUM 51480241936 No Longer Active Mitch Urbina DO Active SIMVASTATIN 40 MG ORAL TABLET 1 tab daily at bedtime SIMVASTATIN 25482374480 Active Mariajoey Rivas RN Active SIMVASTATIN 20 MG ORAL TABLET 1 tab daily at bedtime 2 SIMVASTATIN 35282573780 No Longer Active Mitch Urbina DO Active LOVENOX 100 MG/ML SUBCUTANEOUS SOLUTION One injection twice a da y ENOXAPARIN SODIUM 62152638023 No Longer Active Carmine Yusuf MD Active JANUVIA 100 MG ORAL TABLET 1/2 by mouth every day 2011 SITAGLIPTIN PHOSPHATE 74013556248 No Longer Active Bijal Segal RN Acti ve METFORMIN HCL 500 MG ORAL TABLET 2 by mouth twice daily METFORMIN HCL 49202899856 No Longer Active Renee Oconnor LPN Active COLCRYS 0.6 MG ORAL TABLET 1 po q 6 hours prn gout pain COLCHICINE 02160045708 No Longer Active Camila Reese Active LISINOPRIL 5 MG ORAL TABLET 1 by mouth every day 11/17 LISINOPRIL 26041049643 No Longer Active Nguyen Perez Active KLOR-CON 20 MEQ ORAL PACKET Take one by mouth daily 20 09/10/08 POTASSIUM CHLORIDE 41723620217 No Longer Active Nguyen Perez Active FUROSEMIDE 40 MG ORAL TABLET 1 by mouth daily F UROSEMIDE 81745275845 No Longer Active Nguyen Perez Active PROVIGIL 100 MG ORAL TABLET Take one by mouth daily 08/20/04 MODAFINIL 89458338662 No Longer Active Mitch Urbina DO Active BACTRIM DS 800-160 MG ORAL TABLET 1 tab by mouth twice daily 201 10/19/09 TRIMETHOPRIM-SULFAMETHOXAZOLE 56991736427 No Longer Active C alberto Hays MD Active ADULT ASPIRIN LOW STRENGTH 81 MG ORAL TABLET DISINTEGR ATING 1 by mouth every daily ASPIRIN 54584702014 Active Mitch W Carlitos DO Ac tive BACTRIM DS 800-160 MG ORAL TABLET 1 tab by mouth twice daily 201 10/19/09 BACTRIM DS 800-160 MG ORAL TABLET 795615 TRIMETHOPRIM-SULFAMETHOXAZOLE Inactive PROVIGIL 100 MG ORAL TABLET Take one by mouth daily 08/20/04 PROVIGIL 100 MG ORAL TABLET 194484 MODAFINIL Inactive FUROSEMIDE 40 MG ORAL TABLET 1 by mouth daily FUROSEMIDE 40 MG ORAL TABLET 690967 FUROSEMIDE Inactive KLOR-CON 20 MEQ ORAL PACKET Take one by mouth daily 09/10/08 KLOR- CON 20 MEQ ORAL PACKET 5109303 POTASSIUM CHLORIDE Inactive LISINOPRIL 5 MG ORAL TABLET 1 by mouth every day 11/17 LISINOPRIL 5 MG ORAL TABLET 516349 LISINOPRIL Inactive COLCRYS 0.6 MG ORAL TABLET 1 po q 6 hours prn gout pain COLCRYS 0.6 MG ORAL TABLET 928554 COLCHICINE Inactive JANUVIA 100 MG ORAL TABLET 1/2 by mouth every day 2011 JANUVIA 100 MG ORAL TABLET SITAGLIPTIN PHOSPHATE Inactive SIMVASTATIN 20 MG ORAL TABLET 1 tab daily at bedtime 2 SIMVASTATIN 20 MG ORAL TABLET 891475 SIMVASTATIN Inactive COUMADIN 6 MG ORAL TABLET 1 by mouth every other day 2 COUMADIN 6 MG ORAL TABLET 279407 WARFARIN SODIUM Inactive COUMADIN 5 MG ORAL TABLET 1 by mouth every other day 2 COUMADIN 5 MG ORAL TABLET 686472 WARFARIN SODIUM Inactive LISINOPRIL 20 MG ORAL TABLET 1 tab po at HS LISINOPRIL 20 MG ORAL TABLET 052037 LISINOPRIL Inactive LISINOPRIL-HYDROCHLOROTHIAZIDE 20-12.5 MG ORAL TABLET 1 tab by m outh daily LISINOPRIL-HYDROCHLOROTHIAZIDE 20-12.5 MG ORAL TABLET 289462 LISINOPRIL-HYDROCHLOROTHIAZIDE Inactive POLYTRIM 62915-2.1 UNIT/ML-% OPHTHALMIC SOLUTION 1 rui p in affected eye every 3 hours while awake x 7 days POLYTRIM 1000 0-0.1 UNIT/ML-% OPHTHALMIC SOLUTION 078154 POLYMYXIN B-TRIMETHOPRIM Inactive COUMADIN 4 MG ORAL TABLET 1 tablet daily COUMADIN 4 MG ORAL TABLET 578331 WARFARIN SODIUM Inactive CLONIDINE HCL 0.1 MG ORAL TABLET 1 po bid 7 days, then 1/2 t ab po bid 7 days CLONIDINE HCL 0.1 MG ORAL TABLET 760001 CLONIDIN E HCL Inactive ALLOPURINOL 300 MG ORAL TABLET Take 1 tablet by mouth daily 2012 ALLOPURINOL 300 MG ORAL TABLET 061530 ALLOPURINOL I nactive MECLIZINE HCL 25 MG ORAL TABLET 1 po tid 3 days, then 1/2 ta b tid 3 days MECLIZINE HCL 25 MG ORAL TABLET 915292 MECLIZINE HCL Inactive AMLODIPINE BESYLATE 5 MG ORAL TABLET 1 tablet by mouth daily 201 01/20/04 AMLODIPINE BESYLATE 5 MG ORAL TABLET 651652 AMLODIPINE BESYLATE Inactive KEFLEX 500 MG ORAL CAPSULE 1 po qid K EFLEX 500 MG ORAL CAPSULE 256015 CEPHALEXIN Inactive COLCRYS 0.6 MG ORAL TABLET 1 tab qid prn gout COLCRYS 0.6 MG ORAL TABLET 836970 COLCHICINE Inactive FAMOTIDINE 20 MG ORAL TABLET by mouth twice a day 2017 FAMOTIDINE 20 MG ORAL TABLET 348270 FAMOTIDINE Inactive GLIMEPIRIDE 2 MG ORAL TABLET 1 po BID GLIMEPIRIDE 2 MG ORAL TABLET 231843 GLIMEPIRIDE Inactive AMLODIPINE BESYLATE 5 MG ORAL TABLET 1 tablet by mouth daily 201 05/19/02 AMLODIPINE BESYLATE 5 MG ORAL TABLET 905939 AMLODIPINE BESYLATE Inactive LOVENOX 100 MG/ML SUBCUTANEOUS SOLUTION One injection twice a da y LOVENOX 100 MG/ML SUBCUTANEOUS SOLUTION 154390 ENOXAPAR IN SODIUM Inactive PREDNISONE 20 MG ORAL TABLET 2 tabs daily for 3 days 1 tab d aily for 3 days PREDNISONE 20 MG ORAL TABLET 922965 PREDNISONE Inactive KEFLEX 500 MG ORAL CAPSULE 1 capsule by mouth three times da rocky x10 days KEFLEX 500 MG ORAL CAPSULE 100907 CEPHALEXIN I nactive Advance Directives Directive Description [...] - Chem istry sodium, serum 138 mmol/L 673-409 9512/11/07 potassium, serum 4.5 mmol/L 3.5-5.2 chloride, serum [...] Panel - Chemistry sodium, serum 140 mmol/L 290-937 2552/11/01 carbon dioxide, venous blood 28.6 mmol/L 21.0-32 [...] mg/dL Encounters Code Encounter Date Provider Facility CPT-48238 [id number] Vst-Est Level IV 16:21:22 CDT Bru ce W [facility] CPT-27690 Level 3 Est. Patient 15:18:36 CDT Becky anderson APRN [facility] CPT-84304 [id number] Vst-Est Level IV 10:06:35 CDT Bru ce W [facility] CPT-80564 [id number] Vst-Est Level IV 10:52:00 [employer]CRAFT [employer]STRUMENT TESTER Bru ce W [facility] CPT-10138 Level 3 Est. Patient 18:25:53 CDT Mitch W L [facility] CPT-49408 Level 3 Est. Patient 19:43:34 CDT Mitch luis [facility] CPT-62481 Level 4 Est. Patient 09:30:18 CDT Mitch luis [facility] CPT-66944 Level 3 Est. Patient 15:10:14 CDT Devonjustincarlitos Gomez [facility] CPT-37204 Level 3 Est. Patient 15:03:46 CDT Devonsonya Jason [facility] CPT-71465 Level 3 Est. Patient 14:21:06 CDT Mitch luis [facility]-98953 Level 3 Est. Patient 14:52:06 CDT Joe Jason [facility] CPT-24303 Level 3 Est. Patient 09:34:30 AIRCRAFT INSTRUMENT TESTER Mitch luis [facility]-80842 Level 3 Est. Patient 09:37:15 CDT Mitch luis [facility] CPT-30023 Level 3 Est. Patient 17:01:00 AIRCRAFT INSTRUMENT TESTER Mitch luis [facility] CPT-57089 Level 3 Est. Patient 13:53:19 AIRCRAFT INSTRUMENT TESTER Mitch luis [facility] CPT-43632 Level 3 Est. Patient 19:19:37 AIRCRAFT INSTRUMENT TESTER Mitch luis [facility] CPT-26925 Level 3 Est. Patient 13:25:53 AIRCRAFT INSTRUMENT TESTER Tavo toure MD [facility] CPT-74986 Level 3 Est. Patient 18:17:28 CDT Mitch luis [facility] CPT-05780 Level 3 Est. Patient 15:22:57 CDT Mitch luis [facility] CPT-88635 Level 3 Est. Patient 18:21:50 CDT Mitch luis [facility] CPT-66994 Level 3 Est. Patient 18:20:38 CDT Mitch luis [facility] CPT-41852 Level 3 Est. Patient 15:37:55 CDT Mitch luis [facility] CPT-67992 Level 2 Est. Patient 15:54:44 CDT Carmine benton MD [facility] CPT-12663 Level 3 Est. Patient 21:46:01 AIRCRAFT INSTRUMENT TESTER Mitch luis [facility] CPT-95228 Level 3 Est. Patient 22:15:50 CDT Mitch luis [facility] CPT-02919 Level 3 Est. Patient 10:48:15 CDT Mitch luis [facility] CPT-60850 Level 3 Est. Patient 23:20:57 CDT Tavo toure MD [facility] CPT-35780 Level 3 Est. Patient 16:26:13 CDT Mitch luis [facility] Procedures Code Procedure Name Date Entry Date Standard Desc ription CPT-57624 Venipuncture Draw Fee 10:44:42 [employer]FT INSTRUMENT TE[employer] CPT-20594 Venipuncture Draw Fee 14:46:55 [employer]FT [employer]STRUMENT TE[employer] CPT-20390 Venipuncture Draw Fee 08:26:21 CDT CPT-61112 Venous Duplex Left Leg XRAY USE ONLY 10:43:10 CDT CPT-10150 Venipuncture Draw Fee 17:04:55 CDT CPT-51283 Venipuncture Draw Fee 17:20:50 CDT CPT-86746 Venipuncture Draw Fee 18:00:48 CDT CPT-04779 Venipuncture Draw Fee 14:56:20 CDT CPT-JTINJ Asp/Joint Injection 18:47:02 CDT CPT-13561 Venipuncture Draw Fee 09:26:17 CDT CPT-19586 PT/INR - LAB USE ONLY 13:32:49 [employer]FT [employer]UMENT TE[employer] CPT-91218 Venipuncture Draw Fee 13:32:49 AIRCRAFT INSTRUMENT TE[employer] CPT-79585 PT/INR - LAB USE ONLY 10:34:49 AIRCRAFT INSTRUMENT TE[employer] CPT-63902 Venipuncture Draw Fee 10:34:48 AIRCRAFT INSTRUMENT TESTER CPT-67258 PT/INR - LAB USE ONLY 09:22:03 AIRCRAFT INSTRUMENT TESTER CPT-45076 Venipuncture Draw Fee 09:22:02 AIRCRAFT INSTRUMENT TE[employer] CPT-52925 Hemoccult IFOBT - LAB USE ONLY 10:27:22 CDT CPT-93322 Venipuncture Draw Fee 08:27:08 CDT CPT-90167 Liver Profile - LAB USE ONLY 08:27:07 CDT 2 CPT-15437 Microalbumin - LAB USE ONLY 08:27:07 CDT 20 25/05/09 CPT-83275 PT/INR - LAB USE ONLY 08:27:07 CDT CPT-51813 HGBA1C - LAB USE ONLY 08:27:07 CDT CPT-24005 CBC - LAB USE ONLY 08:27:07 CDT CPT-76658 Venipuncture Draw Fee 11:09:14 CDT CPT-92860 Venipuncture Draw Fee 08:32:21 AIRCRAFT INSTRUMENT TE[employer] CPT-15892 Venipuncture Draw Fee 09:38:56 AIRCRAFT INSTRUMENT TE[employer] CPT-78278 No Charge Offi Visit 21:36:07 CDT 1 CPT-32806 Venipuncture Draw Fee 10:13:28 [employer]FT [employer]STRUMENT TE[employer] CPT-41324 Venipuncture Draw Fee 08:31:11 CDT CPT-20203 Aspir/Inject Med Joint 18:17:28 CDT CPT-05800 Venipuncture Draw Fee 10:13:30 CDT CPT-79269 Venipuncture Draw Fee 08:31:43 AIRCRAFT INSTRUMENT TE[employer] CPT-JTINJ Joint Injection 18:34:50 CDT CPT-27075 Knee 3V 12:25:09 CDT CPT-78357 Venipuncture Draw Fee 12:15:57 CDT CPT-060 Medical Surveillance Exam 21:31:43 CDT 2011 CPT-30127 Venipuncture Draw Fee 08:32:05 AIRCRAFT INSTRUMENT TESTER CPT-OV Office Visit 18:19:06 CDT
--- OUTSIDE RECORDS SUMMARY | 2020-01-18 14:06 | XMS REPORT | Clinical Summary ---
Author Author Admin, Mitch Leon Organization [facility] Address Unknown Phone Unavailable Allergies, Adverse Reactions, [...] Coronary atherosclerosis of unspecified type of vessel, lumbee or graft EDEMA 782.3 Resolved Mitch Urbina [...] TAKE 1 TABLET DAILY SITAGLIPT IN PHOSPHATE 07647460069 Active Maria Rivas RN Active INVOKANA TABS 100MG TAKE 1 TABLET DAILY CANAGLIFL OZIN 03078609903 Active Maria Rivas RN Active AMLODIPINE BESYLATE 5 MG ORAL TABLET 1 tablet by mouth daily 201 05/19/02 AMLODIPINE BESYLATE 67185143998 No Longer Active Maria Briones Active WARFARIN TABS 1MG TAKE 2 TABLETS (2 MG) DAILY WITH THE 5 MG TABLET TO EQUAL 7 MG DAILY WARFARIN SODIUM 82659724651 Active Maria Briones Active WARFARIN SODIUM 5 MG TABS TAKE 1 TABLET DAILY W ARFARIN SODIUM 81667874821 Active Allison BALC Active KEFLEX 500 MG ORAL CAPSULE 1 capsule by mouth three times da rocky x10 days CEPHALEXIN 10752296355 No Longer Active Maria landaverde RN Active METOPROLOL TARTRATE TABS 50MG TAKE 1 TABLET TWICE A DAY ([facility]) METOPROLOL TARTRATE 73083861284 Active Maria Briones Active DOXAZOSIN MESYLATE 2 MG ORAL TABLET 1 po q day for pr ostate and blood pressure DOXAZOSIN MESYLATE 00378865463 Active Mitch Urbina DO Active LOSARTAN TABS 100MG TAKE 1 TABLET DAILY FOR BLOOD PRESSURE LOSARTAN POTASSIUM 09004894067 Active Maria Rivas RN Active FLUTICASONE PROPIONATE 50 MCG/ACT NASAL SUSPENSION 1 s pray each nostril twice daily for 1 week, then once daily FLUTICASONE [place] OPIONATE 70683545500 Active Becky Sell CLIENT TECHNICAL SPECIALIST Active PREDNISONE 20 MG ORAL TABLET 2 tabs daily for 3 days 1 tab d aily for 3 days PREDNISONE 75547391132 No Longer Active Becky Sell CLIENT TECHNICAL SPECIALIST Active MINOXIDIL 2.5 MG ORAL TABLET 1 tablet twice daily for high b lood pressure MINOXIDIL 47839746960 Active Mitch Urbina DO Ac tive METFORMIN HCL ER 500 MG ORAL TABLET EXTENDED RELEASE 2 4 HOUR 2 tablets by mouth twice daily METFORMIN HCL 69020407769 Active Mitch Urbina DO Active GLIMEPIRIDE 4 MG ORAL TABLET 1 tablet by mouth twice daily f or diabetes GLIMEPIRIDE 69391527123 Active Mitch Urbina DO Active GLIMEPIRIDE 2 MG ORAL TABLET 1 po BID GLIMEPI RIDE 19786115109 No Longer Active Mitch Urbina DO Active PROVIGIL 200 MG ORAL TABLET 1/2 tab po q day MODA FINIL 24143527621 Active Maria Rivas RN Active FAMOTIDINE 20 MG ORAL TABLET by mouth twice a day 2017 FAMOTIDINE 14389227577 No Longer Active Mitch Urbina DO Active COLCRYS 0.6 MG ORAL TABLET 1 tab qid prn gout C OLCHICINE 62461207653 No Longer Active Mitch Urbina DO Active KEFLEX 500 MG ORAL CAPSULE 1 po qid CEPHALEXI N 27537359019 No Longer Active Mitch Urbina DO Active AMLODIPINE BESYLATE 5 MG ORAL TABLET 1 tablet by mouth daily 201 01/20/04 AMLODIPINE BESYLATE 09738062850 No Longer Active Joe fulton APRN Active MITIGARE 0.6 MG ORAL CAPSULE 2 capsules at onset of go ut pain, then take one capsule at 1 hour if symptoms persist. COLCHICINE 59 499847087 Active Mitch Urbina DO Active MECLIZINE HCL 25 MG ORAL TABLET 1 po tid 3 days, then 1/2 ta b tid 3 days MECLIZINE HCL 37902480798 No Longer Active Corey SEGURA Active ALLOPURINOL 300 MG ORAL TABLET Take 1 tablet by mouth daily 2012 ALLOPURINOL 48574513228 No Longer Active Corey SEGURA Active CLONIDINE HCL 0.1 MG ORAL TABLET 1 po bid 7 days, then 1/2 t ab po bid 7 days CLONIDINE HCL 01712644153 No Longer Active Corey SEGURA Active COUMADIN 4 MG ORAL TABLET 1 tablet daily WARFAR IN SODIUM 91886642256 No Longer Active Corey SEGURA Active POLYTRIM 21584-7.1 UNIT/ML-% OPHTHALMIC SOLUTION 1 rui p in affected eye every 3 hours while awake x 7 days POLYMYXIN B-TRIMETHOP RIM 03711535296 No Longer Active Corey SEGURA Active LOSARTAN POTASSIUM-HCTZ 100-12.5 MG ORAL TABLET 1 by m outh daily for high blood pressure LOSARTAN POTASSIUM-HCTZ 10968672524 No Longer A ctive Mitch Urbina DO Active LISINOPRIL-HYDROCHLOROTHIAZIDE 20-12.5 MG ORAL TABLET 1 tab by m outh daily LISINOPRIL-HYDROCHLOROTHIAZIDE 68256479519 No Longer Active Mitch Urbina DO Active LISINOPRIL 20 MG ORAL TABLET 1 tab po at HS LIS INOPRIL 92528830374 No Longer Active Mitch Urbina DO Active COUMADIN 5 MG ORAL TABLET 1 by mouth every other day 2 WARFARIN SODIUM 08704719588 No Longer Active Mitch Urbina DO Active COUMADIN 6 MG ORAL TABLET 1 by mouth every other day 2 WARFARIN SODIUM 61080005258 No Longer Active Mitch Urbina DO Active SIMVASTATIN 40 MG ORAL TABLET 1 tab daily at bedtime SIMVASTATIN 16448023295 Active Mariajoey Rivas RN Active SIMVASTATIN 20 MG ORAL TABLET 1 tab daily at bedtime 2 SIMVASTATIN 55428300588 No Longer Active Mitch Urbina DO Active LOVENOX 100 MG/ML SUBCUTANEOUS SOLUTION One injection twice a da y ENOXAPARIN SODIUM 10144270271 No Longer Active Carmine Yusuf MD Active JANUVIA 100 MG ORAL TABLET 1/2 by mouth every day 2011 SITAGLIPTIN PHOSPHATE 14189484954 No Longer Active Bijal Segal RN Acti ve METFORMIN HCL 500 MG ORAL TABLET 2 by mouth twice daily METFORMIN HCL 58173193512 No Longer Active Renee Oconnor LPN Active COLCRYS 0.6 MG ORAL TABLET 1 po q 6 hours prn gout pain COLCHICINE 44676222050 No Longer Active Camila Reese Active LISINOPRIL 5 MG ORAL TABLET 1 by mouth every day 11/17 LISINOPRIL 52373812856 No Longer Active Nguyen Perez Active KLOR-CON 20 MEQ ORAL PACKET Take one by mouth daily 20 09/10/08 POTASSIUM CHLORIDE 95504528419 No Longer Active Nguyen Perez Active FUROSEMIDE 40 MG ORAL TABLET 1 by mouth daily F UROSEMIDE 18913708896 No Longer Active Nguyen Perez Active PROVIGIL 100 MG ORAL TABLET Take one by mouth daily 08/20/04 MODAFINIL 24949622790 No Longer Active Mitch Urbina DO Active BACTRIM DS 800-160 MG ORAL TABLET 1 tab by mouth twice daily 201 10/19/09 TRIMETHOPRIM-SULFAMETHOXAZOLE 50099019329 No Longer Active C alberto Hays MD Active ADULT ASPIRIN LOW STRENGTH 81 MG ORAL TABLET DISINTEGR ATING 1 by mouth every daily ASPIRIN 57072521115 Active Mitch W Carlitos DO Ac tive BACTRIM DS 800-160 MG ORAL TABLET 1 tab by mouth twice daily 201 10/19/09 BACTRIM DS 800-160 MG ORAL TABLET 895244 TRIMETHOPRIM-SULFAMETHOXAZOLE Inactive PROVIGIL 100 MG ORAL TABLET Take one by mouth daily 08/20/04 PROVIGIL 100 MG ORAL TABLET 130635 MODAFINIL Inactive FUROSEMIDE 40 MG ORAL TABLET 1 by mouth daily FUROSEMIDE 40 MG ORAL TABLET 010026 FUROSEMIDE Inactive KLOR-CON 20 MEQ ORAL PACKET Take one by mouth daily 09/10/08 KLOR- CON 20 MEQ ORAL PACKET 8028375 POTASSIUM CHLORIDE Inactive LISINOPRIL 5 MG ORAL TABLET 1 by mouth every day 11/17 LISINOPRIL 5 MG ORAL TABLET 726966 LISINOPRIL Inactive COLCRYS 0.6 MG ORAL TABLET 1 po q 6 hours prn gout pain COLCRYS 0.6 MG ORAL TABLET 083384 COLCHICINE Inactive JANUVIA 100 MG ORAL TABLET 1/2 by mouth every day 2011 JANUVIA 100 MG ORAL TABLET SITAGLIPTIN PHOSPHATE Inactive SIMVASTATIN 20 MG ORAL TABLET 1 tab daily at bedtime 2 SIMVASTATIN 20 MG ORAL TABLET 243106 SIMVASTATIN Inactive COUMADIN 6 MG ORAL TABLET 1 by mouth every other day 2 COUMADIN 6 MG ORAL TABLET 581465 WARFARIN SODIUM Inactive COUMADIN 5 MG ORAL TABLET 1 by mouth every other day 2 COUMADIN 5 MG ORAL TABLET 730563 WARFARIN SODIUM Inactive LISINOPRIL 20 MG ORAL TABLET 1 tab po at HS LISINOPRIL 20 MG ORAL TABLET 630487 LISINOPRIL Inactive LISINOPRIL-HYDROCHLOROTHIAZIDE 20-12.5 MG ORAL TABLET 1 tab by m outh daily LISINOPRIL-HYDROCHLOROTHIAZIDE 20-12.5 MG ORAL TABLET 646177 LISINOPRIL-HYDROCHLOROTHIAZIDE Inactive POLYTRIM 91795-7.1 UNIT/ML-% OPHTHALMIC SOLUTION 1 rui p in affected eye every 3 hours while awake x 7 days POLYTRIM 1000 0-0.1 UNIT/ML-% OPHTHALMIC SOLUTION 145085 POLYMYXIN B-TRIMETHOPRIM Inactive COUMADIN 4 MG ORAL TABLET 1 tablet daily COUMADIN 4 MG ORAL TABLET 441131 WARFARIN SODIUM Inactive CLONIDINE HCL 0.1 MG ORAL TABLET 1 po bid 7 days, then 1/2 t ab po bid 7 days CLONIDINE HCL 0.1 MG ORAL TABLET 233691 CLONIDIN E HCL Inactive ALLOPURINOL 300 MG ORAL TABLET Take 1 tablet by mouth daily 2012 ALLOPURINOL 300 MG ORAL TABLET 982355 ALLOPURINOL I nactive MECLIZINE HCL 25 MG ORAL TABLET 1 po tid 3 days, then 1/2 ta b tid 3 days MECLIZINE HCL 25 MG ORAL TABLET 044130 MECLIZINE HCL Inactive AMLODIPINE BESYLATE 5 MG ORAL TABLET 1 tablet by mouth daily 201 01/20/04 AMLODIPINE BESYLATE 5 MG ORAL TABLET 028200 AMLODIPINE BESYLATE Inactive KEFLEX 500 MG ORAL CAPSULE 1 po qid K EFLEX 500 MG ORAL CAPSULE 465186 CEPHALEXIN Inactive COLCRYS 0.6 MG ORAL TABLET 1 tab qid prn gout COLCRYS 0.6 MG ORAL TABLET 888034 COLCHICINE Inactive FAMOTIDINE 20 MG ORAL TABLET by mouth twice a day 2017 FAMOTIDINE 20 MG ORAL TABLET 561779 FAMOTIDINE Inactive GLIMEPIRIDE 2 MG ORAL TABLET 1 po BID GLIMEPIRIDE 2 MG ORAL TABLET 951176 GLIMEPIRIDE Inactive AMLODIPINE BESYLATE 5 MG ORAL TABLET 1 tablet by mouth daily 201 05/19/02 AMLODIPINE BESYLATE 5 MG ORAL TABLET 939912 AMLODIPINE BESYLATE Inactive LOVENOX 100 MG/ML SUBCUTANEOUS SOLUTION One injection twice a da y LOVENOX 100 MG/ML SUBCUTANEOUS SOLUTION 067150 ENOXAPAR IN SODIUM Inactive PREDNISONE 20 MG ORAL TABLET 2 tabs daily for 3 days 1 tab d aily for 3 days PREDNISONE 20 MG ORAL TABLET 661447 PREDNISONE Inactive KEFLEX 500 MG ORAL CAPSULE 1 capsule by mouth three times da rocky x10 days KEFLEX 500 MG ORAL CAPSULE 785154 CEPHALEXIN I nactive Advance Directives Directive Description [...] mane blood pressure, diastolic 82 mm[Hg] BP amne blood pressure, systolic, second observation 177 mm [...] - Chem istry sodium, serum 138 mmol/L 947-822 0525/11/07 potassium, serum 4.5 mmol/L 3.5-5.2 chloride, serum [...] Panel - Chemistry sodium, serum 140 mmol/L 987-188 2533/11/01 carbon dioxide, venous blood 28.6 mmol/L 21.0-32 [...] mg/dL Encounters Code Encounter Date Provider Facility CPT-50709 [id number] Vst-Est Level IV 16:21:22 CDT Bru ce W [facility] CPT-69332 Level 3 Est. Patient 15:18:36 CDT Becky anderson APRN [facility] CPT-13662 [id number] Vst-Est Level IV 10:06:35 CDT Bru ce W [facility] CPT-50635 [id number] Vst-Est Level IV 10:52:00 CAR MOVER Bru ce W [facility] CPT-20925 Level 3 Est. Patient 18:25:53 CDT Mitch W L [facility] CPT-93215 Level 3 Est. Patient 19:43:34 CDT Mitch luis [facility] CPT-36847 Level 4 Est. Patient 09:30:18 CDT Mitch luis [facility] CPT-76941 Level 3 Est. Patient 15:10:14 CDT Devonjustincarlitos Gomez [facility] CPT-84078 Level 3 Est. Patient 15:03:46 CDT Devonsonya Jason [facility] CPT-65723 Level 3 Est. Patient 14:21:06 CDT Mitch luis [facility]-91519 Level 3 Est. Patient 14:52:06 CDT Joe Jason [facility] CPT-40070 Level 3 Est. Patient 09:34:30 CAR MOVER Mitch luis [facility]-48311 Level 3 Est. Patient 09:37:15 CDT iMtch luis [facility] CPT-65145 Level 3 Est. Patient 17:01:00 CAR MOVER Mitch luis [facility] CPT-62536 Level 3 Est. Patient 13:53:19 CAR MOVER Mitch luis [facility] CPT-72335 Level 3 Est. Patient 19:19:37 CAR MOVER Mitch luis [facility] CPT-02359 Level 3 Est. Patient 13:25:53 CAR MOVER Tavo toure MD [facility] CPT-87296 Level 3 Est. Patient 18:17:28 CDT Mitch luis [facility] CPT-71388 Level 3 Est. Patient 15:22:57 CDT Mitch luis [facility] CPT-83814 Level 3 Est. Patient 18:21:50 CDT Mitch luis [facility] CPT-27182 Level 3 Est. Patient 18:20:38 CDT Mitch luis [facility] CPT-22070 Level 3 Est. Patient 15:37:55 CDT Mitch luis [facility] CPT-69793 Level 2 Est. Patient 15:54:44 CDT Carmine benton MD [facility] CPT-53177 Level 3 Est. Patient 21:46:01 CAR MOVER Mitch luis [facility] CPT-98741 Level 3 Est. Patient 22:15:50 CDT Mitch luis [facility] CPT-41926 Level 3 Est. Patient 10:48:15 CDT Mitch luis [facility] CPT-78797 Level 3 Est. Patient 23:20:57 CDT Tavo toure MD [facility] CPT-83395 Level 3 Est. Patient 16:26:13 CDT Mitch luis [facility] Procedures Code Procedure Name Date Entry Date Standard Desc ription CPT-84175 Venipuncture Draw Fee 10:44:42 CAR MOVER CPT-88665 Venipuncture Draw Fee 14:46:55 CAR MOVER CPT-34785 Venipuncture Draw Fee 08:26:21 CDT CPT-79998 Venous Duplex Left Leg XRAY USE ONLY 10:43:10 CDT CPT-56723 Venipuncture Draw Fee 17:04:55 CDT CPT-89015 Venipuncture Draw Fee 17:20:50 CDT CPT-92631 Venipuncture Draw Fee 18:00:48 CDT CPT-21213 Venipuncture Draw Fee 14:56:20 CDT CPT-JTINJ Asp/Joint Injection 18:47:02 CDT CPT-93217 Venipuncture Draw Fee 09:26:17 CDT CPT-63680 PT/INR - LAB USE ONLY 13:32:49 CAR MOVER CPT-06841 Venipuncture Draw Fee 13:32:49 CAR MOVER CPT-06201 PT/INR - LAB USE ONLY 10:34:49 CAR MOVER CPT-24783 Venipuncture Draw Fee 10:34:48 CAR MOVER CPT-20269 PT/INR - LAB USE ONLY 09:22:03 CAR MOVER CPT-56075 Venipuncture Draw Fee 09:22:02 CAR MOVER CPT-32567 Hemoccult IFOBT - LAB USE ONLY 10:27:22 CDT CPT-13329 Venipuncture Draw Fee 08:27:08 CDT CPT-54955 Liver Profile - LAB USE ONLY 08:27:07 CDT 2 CPT-87496 Microalbumin - LAB USE ONLY 08:27:07 CDT 20 25/05/09 CPT-06703 PT/INR - LAB USE ONLY 08:27:07 CDT CPT-89422 HGBA1C - LAB USE ONLY 08:27:07 CDT CPT-92708 CBC - LAB USE ONLY 08:27:07 CDT CPT-60382 Venipuncture Draw Fee 11:09:14 CDT CPT-48826 Venipuncture Draw Fee 08:32:21 CAR MOVER CPT-42972 Venipuncture Draw Fee 09:38:56 CAR MOVER CPT-12141 No Charge Offi Visit 21:36:07 CDT 1 CPT-04126 Venipuncture Draw Fee 10:13:28 CAR MOVER CPT-85963 Venipuncture Draw Fee 08:31:11 CDT CPT-13414 Aspir/Inject Med Joint 18:17:28 CDT CPT-30862 Venipuncture Draw Fee 10:13:30 CDT CPT-03544 Venipuncture Draw Fee 08:31:43 CAR MOVER CPT-JTINJ Joint Injection 18:34:50 CDT CPT-78308 Knee 3V 12:25:09 CDT CPT-43887 Venipuncture Draw Fee 12:15:57 CDT CPT-060 Medical Surveillance Exam 21:31:43 CDT 2011 CPT-95175 Venipuncture Draw Fee 08:32:05 CAR MOVER CPT-OV Office Visit 18:19:06 CDT
--- OUTSIDE RECORDS SUMMARY | 2020-01-18 14:06 | XMS REPORT | Clinical Summary ---
Author Author Admin, Mitch Leon Organization [facility] Address Unknown Phone Unavailable Allergies, Adverse Reactions, [...] DO Cough Sebaceous cyst, infected 706.2 Resolved Imtch W Carlitos DO Sebaceous cyst Cellulitis 682.9 [...] TAKE 1 TABLET DAILY SITAGLIPT IN PHOSPHATE 03183958325 Active Maria Rivas RN Active INVOKANA TABS 100MG TAKE 1 TABLET DAILY CANAGLIFL OZIN 65507388894 Active Maria Rivas RN Active AMLODIPINE BESYLATE 5 MG ORAL TABLET 1 tablet by mouth daily 201 05/19/02 AMLODIPINE BESYLATE 94878828710 No Longer Active Maria Briones Active WARFARIN TABS 1MG TAKE 2 TABLETS (2 MG) DAILY WITH THE 5 MG TABLET TO EQUAL 7 MG DAILY WARFARIN SODIUM 39645610450 Active Maria Briones Active WARFARIN SODIUM 5 MG TABS TAKE 1 TABLET DAILY W ARFARIN SODIUM 77942957116 Active Allison BALC Active KEFLEX 500 MG ORAL CAPSULE 1 capsule by mouth three times da rocky x10 days CEPHALEXIN 23205552387 No Longer Active Maria landaverde RN Active METOPROLOL TARTRATE TABS 50MG TAKE 1 TABLET TWICE A DAY ([facility] WORK) METOPROLOL TARTRATE 93958812802 Active Maria Briones Active DOXAZOSIN MESYLATE 2 MG ORAL TABLET 1 po q day for pr ostate and blood pressure DOXAZOSIN MESYLATE 51944949443 Active Mitch Urbina DO Active LOSARTAN TABS 100MG TAKE 1 TABLET DAILY FOR BLOOD PRESSURE LOSARTAN POTASSIUM 38650419543 Active Maria Rivas RN Active FLUTICASONE PROPIONATE 50 MCG/ACT NASAL SUSPENSION 1 s pray each nostril twice daily for 1 week, then once daily FLUTICASONE PA OPIONATE 21797593720 Active Becky Sell MILL LABORER Active PREDNISONE 20 MG ORAL TABLET 2 tabs daily for 3 days 1 tab d aily for 3 days PREDNISONE 40594037109 No Longer Active Becky Sell MILL LABORER Active MINOXIDIL 2.5 MG ORAL TABLET 1 tablet twice daily for high b lood pressure MINOXIDIL 11394083605 Active Mitch Urbina DO Ac tive METFORMIN HCL ER 500 MG ORAL TABLET EXTENDED RELEASE 2 4 HOUR 2 tablets by mouth twice daily METFORMIN HCL 85488314182 Active Mitch Urbina DO Active GLIMEPIRIDE 4 MG ORAL TABLET 1 tablet by mouth twice daily f or diabetes GLIMEPIRIDE 19838046911 Active Mitch Urbina DO Active GLIMEPIRIDE 2 MG ORAL TABLET 1 po BID GLIMEPI RIDE 90929136268 No Longer Active Mitch Urbina DO Active PROVIGIL 200 MG ORAL TABLET 1/2 tab po q day MODA FINIL 39126884444 Active Maria Rivas RN Active FAMOTIDINE 20 MG ORAL TABLET by mouth twice a day 2017 FAMOTIDINE 26653882332 No Longer Active Mitch Urbina DO Active COLCRYS 0.6 MG ORAL TABLET 1 tab qid prn gout C OLCHICINE 18279106235 No Longer Active Mitch Urbina DO Active KEFLEX 500 MG ORAL CAPSULE 1 po qid CEPHALEXI N 23036051791 No Longer Active Mitch Urbina DO Active AMLODIPINE BESYLATE 5 MG ORAL TABLET 1 tablet by mouth daily 201 01/20/04 AMLODIPINE BESYLATE 64184449403 No Longer Active Joe fulton APRN Active MITIGARE 0.6 MG ORAL CAPSULE 2 capsules at onset of go ut pain, then take one capsule at 1 hour if symptoms persist. COLCHICINE 59 011504272 Active Mitch Urbina DO Active MECLIZINE HCL 25 MG ORAL TABLET 1 po tid 3 days, then 1/2 ta b tid 3 days MECLIZINE HCL 04313583675 No Longer Active Corey SEGURA Active ALLOPURINOL 300 MG ORAL TABLET Take 1 tablet by mouth daily 2012 ALLOPURINOL 39131143109 No Longer Active Corey SEGURA Active CLONIDINE HCL 0.1 MG ORAL TABLET 1 po bid 7 days, then 1/2 t ab po bid 7 days CLONIDINE HCL 94770422621 No Longer Active Corey SEGURA Active COUMADIN 4 MG ORAL TABLET 1 tablet daily WARFAR IN SODIUM 52878749459 No Longer Active Corey SEGURA Active POLYTRIM 32480-7.1 UNIT/ML-% OPHTHALMIC SOLUTION 1 rui p in affected eye every 3 hours while awake x 7 days POLYMYXIN B-TRIMETHOP RIM 80494680050 No Longer Active Corey SEGURA Active LOSARTAN POTASSIUM-HCTZ 100-12.5 MG ORAL TABLET 1 by m outh daily for high blood pressure LOSARTAN POTASSIUM-HCTZ 08555266236 No Longer A ctive Mitch Urbina DO Active LISINOPRIL-HYDROCHLOROTHIAZIDE 20-12.5 MG ORAL TABLET 1 tab by m outh daily LISINOPRIL-HYDROCHLOROTHIAZIDE 92065351032 No Longer Active Mitch Urbina DO Active LISINOPRIL 20 MG ORAL TABLET 1 tab po at HS LIS INOPRIL 45379037519 No Longer Active Mitch Urbina DO Active COUMADIN 5 MG ORAL TABLET 1 by mouth every other day 2 WARFARIN SODIUM 33587067122 No Longer Active Mitch Urbina DO Active COUMADIN 6 MG ORAL TABLET 1 by mouth every other day 2 WARFARIN SODIUM 40550318443 No Longer Active Mitch Urbina DO Active SIMVASTATIN 40 MG ORAL TABLET 1 tab daily at bedtime SIMVASTATIN 63654660417 Active Mariajoey Rivas RN Active SIMVASTATIN 20 MG ORAL TABLET 1 tab daily at bedtime 2 SIMVASTATIN 66379366395 No Longer Active Mitch Urbina DO Active LOVENOX 100 MG/ML SUBCUTANEOUS SOLUTION One injection twice a da y ENOXAPARIN SODIUM 13878766574 No Longer Active Carmine Yusuf MD Active JANUVIA 100 MG ORAL TABLET 1/2 by mouth every day 2011 SITAGLIPTIN PHOSPHATE 79649457539 No Longer Active Bijal Segal RN Acti ve METFORMIN HCL 500 MG ORAL TABLET 2 by mouth twice daily METFORMIN HCL 62253016879 No Longer Active Renee Oconnro LPN Active COLCRYS 0.6 MG ORAL TABLET 1 po q 6 hours prn gout pain COLCHICINE 69020452156 No Longer Active Camila Reese Active LISINOPRIL 5 MG ORAL TABLET 1 by mouth every day 11/17 LISINOPRIL 15249666778 No Longer Active Nguyen Perez Active KLOR-CON 20 MEQ ORAL PACKET Take one by mouth daily 20 09/10/08 POTASSIUM CHLORIDE 92662030354 No Longer Active Nguyen Perez Active FUROSEMIDE 40 MG ORAL TABLET 1 by mouth daily F UROSEMIDE 28617787851 No Longer Active Nguyen Perez Active PROVIGIL 100 MG ORAL TABLET Take one by mouth daily 08/20/04 MODAFINIL 63771993564 No Longer Active Mitch Urbina DO Active BACTRIM DS 800-160 MG ORAL TABLET 1 tab by mouth twice daily 201 10/19/09 TRIMETHOPRIM-SULFAMETHOXAZOLE 12664306174 No Longer Active C alberto Hays MD Active ADULT ASPIRIN LOW STRENGTH 81 MG ORAL TABLET DISINTEGR ATING 1 by mouth every daily ASPIRIN 15897059664 Active Mitch W Carlitos DO Ac tive BACTRIM DS 800-160 MG ORAL TABLET 1 tab by mouth twice daily 201 10/19/09 BACTRIM DS 800-160 MG ORAL TABLET 457670 TRIMETHOPRIM-SULFAMETHOXAZOLE Inactive PROVIGIL 100 MG ORAL TABLET Take one by mouth daily 08/20/04 PROVIGIL 100 MG ORAL TABLET 874907 MODAFINIL Inactive FUROSEMIDE 40 MG ORAL TABLET 1 by mouth daily FUROSEMIDE 40 MG ORAL TABLET 782136 FUROSEMIDE Inactive KLOR-CON 20 MEQ ORAL PACKET Take one by mouth daily 09/10/08 KLOR- CON 20 MEQ ORAL PACKET 3494634 POTASSIUM CHLORIDE Inactive LISINOPRIL 5 MG ORAL TABLET 1 by mouth every day 11/17 LISINOPRIL 5 MG ORAL TABLET 791649 LISINOPRIL Inactive COLCRYS 0.6 MG ORAL TABLET 1 po q 6 hours prn gout pain COLCRYS 0.6 MG ORAL TABLET 986026 COLCHICINE Inactive JANUVIA 100 MG ORAL TABLET 1/2 by mouth every day 2011 JANUVIA 100 MG ORAL TABLET SITAGLIPTIN PHOSPHATE Inactive SIMVASTATIN 20 MG ORAL TABLET 1 tab daily at bedtime 2 SIMVASTATIN 20 MG ORAL TABLET 813392 SIMVASTATIN Inactive COUMADIN 6 MG ORAL TABLET 1 by mouth every other day 2 COUMADIN 6 MG ORAL TABLET 477452 WARFARIN SODIUM Inactive COUMADIN 5 MG ORAL TABLET 1 by mouth every other day 2 COUMADIN 5 MG ORAL TABLET 546823 WARFARIN SODIUM Inactive LISINOPRIL 20 MG ORAL TABLET 1 tab po at HS LISINOPRIL 20 MG ORAL TABLET 791566 LISINOPRIL Inactive LISINOPRIL-HYDROCHLOROTHIAZIDE 20-12.5 MG ORAL TABLET 1 tab by m outh daily LISINOPRIL-HYDROCHLOROTHIAZIDE 20-12.5 MG ORAL TABLET 944967 LISINOPRIL-HYDROCHLOROTHIAZIDE Inactive POLYTRIM 96973-5.1 UNIT/ML-% OPHTHALMIC SOLUTION 1 rui p in affected eye every 3 hours while awake x 7 days POLYTRIM 1000 0-0.1 UNIT/ML-% OPHTHALMIC SOLUTION 584505 POLYMYXIN B-TRIMETHOPRIM Inactive COUMADIN 4 MG ORAL TABLET 1 tablet daily COUMADIN 4 MG ORAL TABLET 042164 WARFARIN SODIUM Inactive CLONIDINE HCL 0.1 MG ORAL TABLET 1 po bid 7 days, then 1/2 t ab po bid 7 days CLONIDINE HCL 0.1 MG ORAL TABLET 560125 CLONIDIN E HCL Inactive ALLOPURINOL 300 MG ORAL TABLET Take 1 tablet by mouth daily 2012 ALLOPURINOL 300 MG ORAL TABLET 389741 ALLOPURINOL I nactive MECLIZINE HCL 25 MG ORAL TABLET 1 po tid 3 days, then 1/2 ta b tid 3 days MECLIZINE HCL 25 MG ORAL TABLET 078584 MECLIZINE HCL Inactive AMLODIPINE BESYLATE 5 MG ORAL TABLET 1 tablet by mouth daily 201 01/20/04 AMLODIPINE BESYLATE 5 MG ORAL TABLET 101071 AMLODIPINE BESYLATE Inactive KEFLEX 500 MG ORAL CAPSULE 1 po qid K EFLEX 500 MG ORAL CAPSULE 172043 CEPHALEXIN Inactive COLCRYS 0.6 MG ORAL TABLET 1 tab qid prn gout COLCRYS 0.6 MG ORAL TABLET 374753 COLCHICINE Inactive FAMOTIDINE 20 MG ORAL TABLET by mouth twice a day 2017 FAMOTIDINE 20 MG ORAL TABLET 448523 FAMOTIDINE Inactive GLIMEPIRIDE 2 MG ORAL TABLET 1 po BID GLIMEPIRIDE 2 MG ORAL TABLET 917669 GLIMEPIRIDE Inactive AMLODIPINE BESYLATE 5 MG ORAL TABLET 1 tablet by mouth daily 201 05/19/02 AMLODIPINE BESYLATE 5 MG ORAL TABLET 852204 AMLODIPINE BESYLATE Inactive LOVENOX 100 MG/ML SUBCUTANEOUS SOLUTION One injection twice a da y LOVENOX 100 MG/ML SUBCUTANEOUS SOLUTION 572208 ENOXAPAR IN SODIUM Inactive PREDNISONE 20 MG ORAL TABLET 2 tabs daily for 3 days 1 tab d aily for 3 days PREDNISONE 20 MG ORAL TABLET 065827 PREDNISONE Inactive KEFLEX 500 MG ORAL CAPSULE 1 capsule by mouth three times da rocky x10 days KEFLEX 500 MG ORAL CAPSULE 569614 CEPHALEXIN I nactive Advance Directives Directive Description [...] - Chem istry sodium, serum 138 mmol/L 846-600 0951/11/07 potassium, serum 4.5 mmol/L 3.5-5.2 chloride, serum [...] Panel - Chemistry sodium, serum 140 mmol/L 450-645 2952/11/01 carbon dioxide, venous blood 28.6 mmol/L 21.0-32 [...] mg/dL Encounters Code Encounter Date Provider Facility CPT-41633 [id number] Vst-Est Level IV 16:21:22 CDT Bru ce [facility] CPT-26104 Level 3 Est. Patient 15:18:36 CDT Becky anderson APRN [facility] CPT-67387 19807-Bab Vst-Est Level IV 10:06:35 CDT Bru ce [facility] CPT-94391 [id number] Vst-Est Level IV 10:52:00 PURIFICATION OPERATOR HELPER Bru ce [facility] CPT-39777 Level 3 Est. Patient 18:25:53 CDT Mitch W L [facility] CPT-93956 Level 3 Est. Patient 19:43:34 CDT Mitch luis [facility] CPT-72724 Level 4 Est. Patient 09:30:18 CDT Mitch luis [facility] CPT-09339 Level 3 Est. Patient 15:10:14 CDT Devonjustincarlitos Gomez [facility] CPT-93612 Level 3 Est. Patient 15:03:46 CDT Devonsonya Jason [facility] CPT-94057 Level 3 Est. Patient 14:21:06 CDT Mitch luis [facility]-22416 Level 3 Est. Patient 14:52:06 CDT Joe Jason [facility] CPT-59356 Level 3 Est. Patient 09:34:30 PURIFICATION OPERATOR HELPER Mitch luis [facility]-47376 Level 3 Est. Patient 09:37:15 CDT Mitch luis [facility] CPT-45952 Level 3 Est. Patient 17:01:00 PURIFICATION OPERATOR HELPER Mitch luis [facility] CPT-48619 Level 3 Est. Patient 13:53:19 PURIFICATION OPERATOR HELPER Mitch luis [facility] CPT-31941 Level 3 Est. Patient 19:19:37 PURIFICATION OPERATOR HELPER Mitch luis [facility] CPT-79208 Level 3 Est. Patient 13:25:53 PURIFICATION OPERATOR HELPER Tavo toure MD [facility] CPT-38946 Level 3 Est. Patient 18:17:28 CDT Mitch luis [facility] CPT-96775 Level 3 Est. Patient 15:22:57 CDT Mitch luis [facility] CPT-78712 Level 3 Est. Patient 18:21:50 CDT Mitch luis [facility] CPT-88068 Level 3 Est. Patient 18:20:38 CDT Mitch luis [facility] CPT-12780 Level 3 Est. Patient 15:37:55 CDT Mitch luis [facility] CPT-95305 Level 2 Est. Patient 15:54:44 CDT Carmine benton MD [facility] CPT-33782 Level 3 Est. Patient 21:46:01 PURIFICATION OPERATOR HELPER Mitch luis [facility] CPT-20455 Level 3 Est. Patient 22:15:50 CDT Mitch luis [facility] CPT-76819 Level 3 Est. Patient 10:48:15 CDT Mitch luis [facility] CPT-68454 Level 3 Est. Patient 23:20:57 CDT Tavo toure MD [facility] CPT-35979 Level 3 Est. Patient 16:26:13 CDT Mitch luis [facility] Procedures Code Procedure Name Date Entry Date Standard Desc ription CPT-27008 Venipuncture Draw Fee 18:03:01 PURIFICATION OPERATOR HELPER CPT-14312 Venipuncture Draw Fee 10:44:42 PURIFICATION OPERATOR HELPER CPT-55602 Venipuncture Draw Fee 14:46:55 PURIFICATION OPERATOR HELPER CPT-50785 Venipuncture Draw Fee 08:26:21 CDT CPT-23435 Venous Duplex Left Leg XRAY USE ONLY 10:43:10 CDT CPT-24750 Venipuncture Draw Fee 17:04:55 CDT CPT-19412 Venipuncture Draw Fee 17:20:50 CDT CPT-52770 Venipuncture Draw Fee 18:00:48 CDT CPT-90354 Venipuncture Draw Fee 14:56:20 CDT CPT-JTINJ Asp/Joint Injection 18:47:02 CDT CPT-10292 Venipuncture Draw Fee 09:26:17 CDT CPT-86875 PT/INR - LAB USE ONLY 13:32:49 PURIFICATION OPERATOR HELPER CPT-69061 Venipuncture Draw Fee 13:32:49 PURIFICATION OPERATOR HELPER CPT-99660 PT/INR - LAB USE ONLY 10:34:49 PURIFICATION OPERATOR HELPER CPT-36177 Venipuncture Draw Fee 10:34:48 PURIFICATION OPERATOR HELPER CPT-31564 PT/INR - LAB USE ONLY 09:22:03 PURIFICATION OPERATOR HELPER CPT-93400 Venipuncture Draw Fee 09:22:02 PURIFICATION OPERATOR HELPER CPT-07549 Hemoccult IFOBT - LAB USE ONLY 10:27:22 CDT CPT-29177 Venipuncture Draw Fee 08:27:08 CDT CPT-33418 Liver Profile - LAB USE ONLY 08:27:07 CDT 2 CPT-59688 Microalbumin - LAB USE ONLY 08:27:07 CDT 20 25/05/09 CPT-29134 PT/INR - LAB USE ONLY 08:27:07 CDT CPT-09338 HGBA1C - LAB USE ONLY 08:27:07 CDT CPT-28595 CBC - LAB USE ONLY 08:27:07 CDT CPT-55120 Venipuncture Draw Fee 11:09:14 CDT CPT-99666 Venipuncture Draw Fee 08:32:21 PURIFICATION OPERATOR HELPER CPT-95067 Venipuncture Draw Fee 09:38:56 PURIFICATION OPERATOR HELPER CPT-01546 No Charge Offi Visit 21:36:07 CDT 1 CPT-13199 Venipuncture Draw Fee 10:13:28 PURIFICATION OPERATOR HELPER CPT-05140 Venipuncture Draw Fee 08:31:11 CDT CPT-34988 Aspir/Inject Med Joint 18:17:28 CDT CPT-09800 Venipuncture Draw Fee 10:13:30 CDT CPT-17926 Venipuncture Draw Fee 08:31:43 PURIFICATION OPERATOR HELPER CPT-JTINJ Joint Injection 18:34:50 CDT CPT-96998 Knee 3V 12:25:09 CDT CPT-53544 Venipuncture Draw Fee 12:15:57 CDT CPT-060 Medical Surveillance Exam 21:31:43 CDT 2011 CPT-96761 Venipuncture Draw Fee 08:32:05 PURIFICATION OPERATOR HELPER CPT-OV Office Visit 18:19:06 CDT
--- OUTSIDE RECORDS SUMMARY | 2020-01-18 14:06 | XMS REPORT | Clinical Summary ---
Author Author Admin, Mitch Leon Organization [facility] Address Unknown Phone Unavailable Allergies, Adverse Reactions, [...] Coronary atherosclerosis of unspecified type of vessel, [place] or graft EDEMA 782.3 Resolved Mitch Urbina [...] TAKE 1 TABLET DAILY SITAGLIPT IN PHOSPHATE 20301979920 Active Maria Rivas RN Active INVOKANA TABS 100MG TAKE 1 TABLET DAILY CANAGLIFL OZIN 96957970497 Active Maria Rivas RN Active AMLODIPINE BESYLATE 5 MG ORAL TABLET 1 tablet by mouth daily 201 05/19/02 AMLODIPINE BESYLATE 75023537786 No Longer Active Maria Briones Active WARFARIN TABS 1MG TAKE 2 TABLETS (2 MG) DAILY WITH THE 5 MG TABLET TO EQUAL 7 MG DAILY WARFARIN SODIUM 03496033199 Active Maria Briones Active WARFARIN SODIUM 5 MG TABS TAKE 1 TABLET DAILY W ARFARIN SODIUM 67585934309 Active Allison BALC Active KEFLEX 500 MG ORAL CAPSULE 1 capsule by mouth three times da rocky x10 days CEPHALEXIN 19050555137 No Longer Active Maria landaverde RN Active METOPROLOL TARTRATE TABS 50MG TAKE 1 TABLET TWICE A DAY ([facility]) METOPROLOL TARTRATE 69076276540 Active Maria Briones Active DOXAZOSIN MESYLATE 2 MG ORAL TABLET 1 po q day for pr ostate and blood pressure DOXAZOSIN MESYLATE 70541622919 Active Mitch Urbina DO Active LOSARTAN TABS 100MG TAKE 1 TABLET DAILY FOR BLOOD PRESSURE LOSARTAN POTASSIUM 11078823789 Active Maria Rivas RN Active FLUTICASONE PROPIONATE 50 MCG/ACT NASAL SUSPENSION 1 s pray each nostril twice daily for 1 week, then once daily FLUTICASONE CA OPIONATE 85071781001 Active Becky Sell KEEL PRESS OPERATOR Active PREDNISONE 20 MG ORAL TABLET 2 tabs daily for 3 days 1 tab d aily for 3 days PREDNISONE 67337868957 No Longer Active Becky Sell KEEL PRESS OPERATOR Active MINOXIDIL 2.5 MG ORAL TABLET 1 tablet twice daily for high b lood pressure MINOXIDIL 57855672111 Active Mitch Urbina DO Ac tive METFORMIN HCL ER 500 MG ORAL TABLET EXTENDED RELEASE 2 4 HOUR 2 tablets by mouth twice daily METFORMIN HCL 33541895015 Active Mitch Urbina DO Active GLIMEPIRIDE 4 MG ORAL TABLET 1 tablet by mouth twice daily f or diabetes GLIMEPIRIDE 54993727031 Active Mitch Urbina DO Active GLIMEPIRIDE 2 MG ORAL TABLET 1 po BID GLIMEPI RIDE 73601098581 No Longer Active Mitch Urbina DO Active PROVIGIL 200 MG ORAL TABLET 1/2 tab po q day MODA FINIL 92525551555 Active Maria Rivas RN Active FAMOTIDINE 20 MG ORAL TABLET by mouth twice a day 2017 FAMOTIDINE 16924261101 No Longer Active Mitch Urbina DO Active COLCRYS 0.6 MG ORAL TABLET 1 tab qid prn gout C OLCHICINE 99584894242 No Longer Active Mitch Urbina DO Active KEFLEX 500 MG ORAL CAPSULE 1 po qid CEPHALEXI N 40723462902 No Longer Active Mitch Urbina DO Active AMLODIPINE BESYLATE 5 MG ORAL TABLET 1 tablet by mouth daily 201 01/20/04 AMLODIPINE BESYLATE 18127980398 No Longer Active Joe fulton APRN Active MITIGARE 0.6 MG ORAL CAPSULE 2 capsules at onset of go ut pain, then take one capsule at 1 hour if symptoms persist. COLCHICINE 59 648758132 Active Mitch Urbina DO Active MECLIZINE HCL 25 MG ORAL TABLET 1 po tid 3 days, then 1/2 ta b tid 3 days MECLIZINE HCL 43205213065 No Longer Active Corey SEGURA Active ALLOPURINOL 300 MG ORAL TABLET Take 1 tablet by mouth daily 2012 ALLOPURINOL 03657953706 No Longer Active Corey SEGURA Active CLONIDINE HCL 0.1 MG ORAL TABLET 1 po bid 7 days, then 1/2 t ab po bid 7 days CLONIDINE HCL 46532462734 No Longer Active Corey SEGURA Active COUMADIN 4 MG ORAL TABLET 1 tablet daily WARFAR IN SODIUM 04089661396 No Longer Active Corey SEGURA Active POLYTRIM 01081-1.1 UNIT/ML-% OPHTHALMIC SOLUTION 1 rui p in affected eye every 3 hours while awake x 7 days POLYMYXIN B-TRIMETHOP RIM 88533403665 No Longer Active Corey SEGURA Active LOSARTAN POTASSIUM-HCTZ 100-12.5 MG ORAL TABLET 1 by m outh daily for high blood pressure LOSARTAN POTASSIUM-HCTZ 97806191952 No Longer A ctive Mitch Urbina DO Active LISINOPRIL-HYDROCHLOROTHIAZIDE 20-12.5 MG ORAL TABLET 1 tab by m outh daily LISINOPRIL-HYDROCHLOROTHIAZIDE 22561495944 No Longer Active Mitch Urbina DO Active LISINOPRIL 20 MG ORAL TABLET 1 tab po at HS LIS INOPRIL 94332891726 No Longer Active Mitch Urbina DO Active COUMADIN 5 MG ORAL TABLET 1 by mouth every other day 2 WARFARIN SODIUM 82096991572 No Longer Active Mitch Urbina DO Active COUMADIN 6 MG ORAL TABLET 1 by mouth every other day 2 WARFARIN SODIUM 63149169439 No Longer Active Mitch Urbina DO Active SIMVASTATIN 40 MG ORAL TABLET 1 tab daily at bedtime SIMVASTATIN 28886175495 Active Mariajoey Rivas RN Active SIMVASTATIN 20 MG ORAL TABLET 1 tab daily at bedtime 2 SIMVASTATIN 53611074729 No Longer Active Mitch Urbina DO Active LOVENOX 100 MG/ML SUBCUTANEOUS SOLUTION One injection twice a da y ENOXAPARIN SODIUM 05992381103 No Longer Active Carmine Yusuf MD Active JANUVIA 100 MG ORAL TABLET 1/2 by mouth every day 2011 SITAGLIPTIN PHOSPHATE 39365859920 No Longer Active Bijal Segal RN Acti ve METFORMIN HCL 500 MG ORAL TABLET 2 by mouth twice daily METFORMIN HCL 01459747609 No Longer Active Renee Oconnor LPN Active COLCRYS 0.6 MG ORAL TABLET 1 po q 6 hours prn gout pain COLCHICINE 90483181261 No Longer Active Camila Reese Active LISINOPRIL 5 MG ORAL TABLET 1 by mouth every day 11/17 LISINOPRIL 05683554050 No Longer Active Nguyen Perez Active KLOR-CON 20 MEQ ORAL PACKET Take one by mouth daily 20 09/10/08 POTASSIUM CHLORIDE 86277072290 No Longer Active Nguyen Perez Active FUROSEMIDE 40 MG ORAL TABLET 1 by mouth daily F UROSEMIDE 90720217311 No Longer Active Nguyen Perez Active PROVIGIL 100 MG ORAL TABLET Take one by mouth daily 08/20/04 MODAFINIL 83148835829 No Longer Active Mitch Urbina DO Active BACTRIM DS 800-160 MG ORAL TABLET 1 tab by mouth twice daily 201 10/19/09 TRIMETHOPRIM-SULFAMETHOXAZOLE 71200159131 No Longer Active C alberto Hays MD Active ADULT ASPIRIN LOW STRENGTH 81 MG ORAL TABLET DISINTEGR ATING 1 by mouth every daily ASPIRIN 81750942836 Active Mitch W Carlitos DO Ac tive BACTRIM DS 800-160 MG ORAL TABLET 1 tab by mouth twice daily 201 10/19/09 BACTRIM DS 800-160 MG ORAL TABLET 964654 TRIMETHOPRIM-SULFAMETHOXAZOLE Inactive PROVIGIL 100 MG ORAL TABLET Take one by mouth daily 08/20/04 PROVIGIL 100 MG ORAL TABLET 852626 MODAFINIL Inactive FUROSEMIDE 40 MG ORAL TABLET 1 by mouth daily FUROSEMIDE 40 MG ORAL TABLET 384807 FUROSEMIDE Inactive KLOR-CON 20 MEQ ORAL PACKET Take one by mouth daily 09/10/08 KLOR- CON 20 MEQ ORAL PACKET 7411220 POTASSIUM CHLORIDE Inactive LISINOPRIL 5 MG ORAL TABLET 1 by mouth every day 11/17 LISINOPRIL 5 MG ORAL TABLET 682346 LISINOPRIL Inactive COLCRYS 0.6 MG ORAL TABLET 1 po q 6 hours prn gout pain COLCRYS 0.6 MG ORAL TABLET 427610 COLCHICINE Inactive JANUVIA 100 MG ORAL TABLET 1/2 by mouth every day 2011 JANUVIA 100 MG ORAL TABLET SITAGLIPTIN PHOSPHATE Inactive SIMVASTATIN 20 MG ORAL TABLET 1 tab daily at bedtime 2 SIMVASTATIN 20 MG ORAL TABLET 318414 SIMVASTATIN Inactive COUMADIN 6 MG ORAL TABLET 1 by mouth every other day 2 COUMADIN 6 MG ORAL TABLET 716674 WARFARIN SODIUM Inactive COUMADIN 5 MG ORAL TABLET 1 by mouth every other day 2 COUMADIN 5 MG ORAL TABLET 346474 WARFARIN SODIUM Inactive LISINOPRIL 20 MG ORAL TABLET 1 tab po at HS LISINOPRIL 20 MG ORAL TABLET 466792 LISINOPRIL Inactive LISINOPRIL-HYDROCHLOROTHIAZIDE 20-12.5 MG ORAL TABLET 1 tab by m outh daily LISINOPRIL-HYDROCHLOROTHIAZIDE 20-12.5 MG ORAL TABLET 006447 LISINOPRIL-HYDROCHLOROTHIAZIDE Inactive POLYTRIM 37347-4.1 UNIT/ML-% OPHTHALMIC SOLUTION 1 rui p in affected eye every 3 hours while awake x 7 days POLYTRIM 1000 0-0.1 UNIT/ML-% OPHTHALMIC SOLUTION 559513 POLYMYXIN B-TRIMETHOPRIM Inactive COUMADIN 4 MG ORAL TABLET 1 tablet daily COUMADIN 4 MG ORAL TABLET 008936 WARFARIN SODIUM Inactive CLONIDINE HCL 0.1 MG ORAL TABLET 1 po bid 7 days, then 1/2 t ab po bid 7 days CLONIDINE HCL 0.1 MG ORAL TABLET 646617 CLONIDIN E HCL Inactive ALLOPURINOL 300 MG ORAL TABLET Take 1 tablet by mouth daily 2012 ALLOPURINOL 300 MG ORAL TABLET 160341 ALLOPURINOL I nactive MECLIZINE HCL 25 MG ORAL TABLET 1 po tid 3 days, then 1/2 ta b tid 3 days MECLIZINE HCL 25 MG ORAL TABLET 063496 MECLIZINE HCL Inactive AMLODIPINE BESYLATE 5 MG ORAL TABLET 1 tablet by mouth daily 201 01/20/04 AMLODIPINE BESYLATE 5 MG ORAL TABLET 165936 AMLODIPINE BESYLATE Inactive KEFLEX 500 MG ORAL CAPSULE 1 po qid K EFLEX 500 MG ORAL CAPSULE 470994 CEPHALEXIN Inactive COLCRYS 0.6 MG ORAL TABLET 1 tab qid prn gout COLCRYS 0.6 MG ORAL TABLET 189850 COLCHICINE Inactive FAMOTIDINE 20 MG ORAL TABLET by mouth twice a day 2017 FAMOTIDINE 20 MG ORAL TABLET 235713 FAMOTIDINE Inactive GLIMEPIRIDE 2 MG ORAL TABLET 1 po BID GLIMEPIRIDE 2 MG ORAL TABLET 983439 GLIMEPIRIDE Inactive AMLODIPINE BESYLATE 5 MG ORAL TABLET 1 tablet by mouth daily 201 05/19/02 AMLODIPINE BESYLATE 5 MG ORAL TABLET 355093 AMLODIPINE BESYLATE Inactive LOVENOX 100 MG/ML SUBCUTANEOUS SOLUTION One injection twice a da y LOVENOX 100 MG/ML SUBCUTANEOUS SOLUTION 408259 ENOXAPAR IN SODIUM Inactive PREDNISONE 20 MG ORAL TABLET 2 tabs daily for 3 days 1 tab d aily for 3 days PREDNISONE 20 MG ORAL TABLET 861551 PREDNISONE Inactive KEFLEX 500 MG ORAL CAPSULE 1 capsule by mouth three times da rocky x10 days KEFLEX 500 MG ORAL CAPSULE 220023 CEPHALEXIN I nactive Advance Directives Directive Description [...] - Chem istry sodium, serum 138 mmol/L 604-585 5092/11/07 potassium, serum 4.5 mmol/L 3.5-5.2 chloride, serum [...] Panel - Chemistry sodium, serum 140 mmol/L 186-987 0165/11/01 carbon dioxide, venous blood 28.6 mmol/L 21.0-32 [...] mg/dL Encounters Code Encounter Date Provider Facility CPT-23770 [id number] Vst-Est Level IV 16:21:22 CDT Bru ce [facility] CPT-40466 Level 3 Est. Patient 15:18:36 CDT Becky anderson APRN [facility] CPT-82110 [id number] Vst-Est Level IV 10:06:35 CDT Bru ce [facility] CPT-42368 [id number] Vst-Est Level IV 10:52:00 CASH APPLICATIONS CLERK Bru ce [facility] CPT-40821 Level 3 Est. Patient 18:25:53 CDT Mitch W L [facility] CPT-64353 Level 3 Est. Patient 19:43:34 CDT Mitch luis [facility] CPT-96806 Level 4 Est. Patient 09:30:18 CDT Mitch luis [facility] CPT-31669 Level 3 Est. Patient 15:10:[address] [facility] CPT-50932 Level 3 Est. Patient 15:03:[address] [facility] CPT-05628 Level 3 Est. Patient 14:21:06 CDT Mitch luis [facility]-93838 Level 3 Est. Patient 14:52:[address] [facility] CPT-24069 Level 3 Est. Patient 09:34:30 CASH APPLICATIONS CLERK Mitch luis [facility]-09889 Level 3 Est. Patient 09:37:15 CDT Mithc luis [facility] CPT-16199 Level 3 Est. Patient 17:01:00 CASH APPLICATIONS CLERK Mitch luis [facility] CPT-06931 Level 3 Est. Patient 13:53:19 CASH APPLICATIONS CLERK Mitch luis [facility] CPT-63510 Level 3 Est. Patient 19:19:37 CASH APPLICATIONS CLERK Mitch luis [facility] CPT-28476 Level 3 Est. Patient 13:25:53 CASH APPLICATIONS CLERK Tavo toure MD [facility] CPT-12554 Level 3 Est. Patient 18:17:28 CDT Mitch luis [facility] CPT-72172 Level 3 Est. Patient 15:22:57 CDT Mitch luis [facility] CPT-71526 Level 3 Est. Patient 18:21:50 CDT Mitch luis [facility] CPT-24312 Level 3 Est. Patient 18:20:38 CDT Mitch luis [facility] CPT-28530 Level 3 Est. Patient 15:37:55 CDT Mitch luis [facility] CPT-71978 Level 2 Est. Patient 15:54:44 CDT Carmine benton MD [facility] CPT-24042 Level 3 Est. Patient 21:46:01 CASH APPLICATIONS CLERK Mitch luis [facility] CPT-86268 Level 3 Est. Patient 22:15:50 CDT Mitch luis [facility] CPT-24118 Level 3 Est. Patient 10:48:15 CDT Mitch luis [facility] CPT-08791 Level 3 Est. Patient 23:20:57 CDT Tavo toure MD [facility] CPT-78233 Level 3 Est. Patient 16:26:13 CDT Mitch luis [facility] Procedures Code Procedure Name Date Entry Date Standard Desc ription CPT-90314 Venipuncture Draw Fee 10:44:42 CASH APPLICATIONS CLERK CPT-79423 Venipuncture Draw Fee 14:46:55 CASH APPLICATIONS CLERK CPT-87261 Venipuncture Draw Fee 08:26:21 CDT CPT-53153 Venous Duplex Left Leg XRAY USE ONLY 10:43:10 CDT CPT-98744 Venipuncture Draw Fee 17:04:55 CDT CPT-02698 Venipuncture Draw Fee 17:20:50 CDT CPT-93926 Venipuncture Draw Fee 18:00:48 CDT CPT-73996 Venipuncture Draw Fee 14:56:20 CDT CPT-JTINJ Asp/Joint Injection 18:47:02 CDT CPT-98735 Venipuncture Draw Fee 09:26:17 CDT CPT-84095 PT/INR - LAB USE ONLY 13:32:49 CASH APPLICATIONS CLERK CPT-47073 Venipuncture Draw Fee 13:32:49 CASH APPLICATIONS CLERK CPT-99166 PT/INR - LAB USE ONLY 10:34:49 CASH APPLICATIONS CLERK CPT-31674 Venipuncture Draw Fee 10:34:48 CASH APPLICATIONS CLERK CPT-30616 PT/INR - LAB USE ONLY 09:22:03 CASH APPLICATIONS CLERK CPT-66968 Venipuncture Draw Fee 09:22:02 CASH APPLICATIONS CLERK CPT-91447 Hemoccult IFOBT - LAB USE ONLY 10:27:22 CDT CPT-54975 Venipuncture Draw Fee 08:27:08 CDT CPT-24575 Liver Profile - LAB USE ONLY 08:27:07 CDT 2 CPT-68668 Microalbumin - LAB USE ONLY 08:27:07 CDT 20 25/05/09 CPT-23438 PT/INR - LAB USE ONLY 08:27:07 CDT CPT-91901 HGBA1C - LAB USE ONLY 08:27:07 CDT CPT-10783 CBC - LAB USE ONLY 08:27:07 CDT CPT-74126 Venipuncture Draw Fee 11:09:14 CDT CPT-57869 Venipuncture Draw Fee 08:32:21 CASH APPLICATIONS CLERK CPT-86817 Venipuncture Draw Fee 09:38:56 CASH APPLICATIONS CLERK CPT-55326 No Charge Offi Visit 21:36:07 CDT 1 CPT-97149 Venipuncture Draw Fee 10:13:28 CASH APPLICATIONS CLERK CPT-21296 Venipuncture Draw Fee 08:31:11 CDT CPT-96952 Aspir/Inject Med Joint 18:17:28 CDT CPT-58322 Venipuncture Draw Fee 10:13:30 CDT CPT-05639 Venipuncture Draw Fee 08:31:43 CASH APPLICATIONS CLERK CPT-JTINJ Joint Injection 18:34:50 CDT CPT-96674 Knee 3V 12:25:09 CDT CPT-11259 Venipuncture Draw Fee 12:15:57 CDT CPT-060 Medical Surveillance Exam 21:31:43 CDT 2011 CPT-21756 Venipuncture Draw Fee 08:32:05 CASH APPLICATIONS CLERK CPT-OV Office Visit 18:19:06 CDT
--- OUTSIDE RECORDS SUMMARY | 2020-01-18 14:07 | XMS REPORT | Clinical Summary ---
Author Author Admin, Mitch Leon Organization [facility] [address] Address Unknown Phone Unavailable Allergies, Adverse Reactions, [...] of vessel, [place] or graft EDEMA 782.3 Resolved Mitch Urbina [...] TAKE 1 TABLET DAILY SITAGLIPT IN PHOSPHATE 67702643588 Active Mitch Urbina DO Active INVOKANA TABS 100MG TAKE 1 TABLET DAILY CANAGLIFL OZIN 45944001788 Active Mitch Urbina DO Active AMLODIPINE BESYLATE 5 MG ORAL TABLET 1 tablet by mouth daily 201 05/19/02 AMLODIPINE BESYLATE 95078457720 No Longer Active Maria Briones Active WARFARIN TABS 1MG TAKE 2 TABLETS (2 MG) DAILY WITH THE 5 MG TABLET TO EQUAL 7 MG DAILY WARFARIN SODIUM 04131156231 Active Maria Briones Active WARFARIN SODIUM 5 MG TABS TAKE 1 TABLET DAILY W ARFARIN SODIUM 98666857175 Active Maria Rivas RN Active KEFLEX 500 MG ORAL CAPSULE 1 capsule by mouth three times da rocky x10 days CEPHALEXIN 56840346817 No Longer Active Maria landaverde RN Active METOPROLOL TARTRATE TABS 50MG TAKE 1 TABLET TWICE A DAY ([facility]) METOPROLOL TARTRATE 83729143239 Active Maria Briones Active DOXAZOSIN MESYLATE 2 MG ORAL TABLET 1 po q day for pr ostate and blood pressure DOXAZOSIN MESYLATE 27842962511 Active Mithc Urbina DO Active LOSARTAN TABS 100MG TAKE 1 TABLET DAILY FOR BLOOD PRESSURE LOSARTAN POTASSIUM 51144649115 Active Maria Rivas RN Active FLUTICASONE PROPIONATE 50 MCG/ACT NASAL SUSPENSION 1 s pray each nostril twice daily for 1 week, then once daily FLUTICASONE HI OPIONATE 07159349691 Active Becky Sell PHYSICS AND ASTRONOMY PROFESSOR Active PREDNISONE 20 MG ORAL TABLET 2 tabs daily for 3 days 1 tab d aily for 3 days PREDNISONE 82594136876 No Longer Active Becky Sell PHYSICS AND ASTRONOMY PROFESSOR Active MINOXIDIL 2.5 MG ORAL TABLET 1 tablet twice daily for high b lood pressure MINOXIDIL 19666817964 Active Mitch Urbina DO Ac tive METFORMIN HCL ER 500 MG ORAL TABLET EXTENDED RELEASE 2 4 HOUR 2 tablets by mouth twice daily METFORMIN HCL 74856174002 Active Mitch Urbina DO Active GLIMEPIRIDE 4 MG ORAL TABLET 1 tablet by mouth twice daily f or diabetes GLIMEPIRIDE 67330118643 Active Mitch Urbina DO Active GLIMEPIRIDE 2 MG ORAL TABLET 1 po BID GLIMEPI RIDE 52287007257 No Longer Active Mitch Urbina DO Active PROVIGIL 200 MG ORAL TABLET 1/2 tab po q day MODA FINIL 52717505672 Active Maria Rivas RN Active FAMOTIDINE 20 MG ORAL TABLET by mouth twice a day 2017 FAMOTIDINE 36025564062 No Longer Active Mitch Urbina DO Active COLCRYS 0.6 MG ORAL TABLET 1 tab qid prn gout C OLCHICINE 22508415152 No Longer Active Mitch Urbina DO Active KEFLEX 500 MG ORAL CAPSULE 1 po qid CEPHALEXI N 95098540015 No Longer Active Mitch Urbina DO Active AMLODIPINE BESYLATE 5 MG ORAL TABLET 1 tablet by mouth daily 201 01/20/04 AMLODIPINE BESYLATE 72123663813 No Longer Active Joe fulton APRN Active MITIGARE 0.6 MG ORAL CAPSULE 2 capsules at onset of go ut pain, then take one capsule at 1 hour if symptoms persist. COLCHICINE 59 069073639 Active Mitch Urbina DO Active MECLIZINE HCL 25 MG ORAL TABLET 1 po tid 3 days, then 1/2 ta b tid 3 days MECLIZINE HCL 73745421104 No Longer Active Corey SEGURA Active ALLOPURINOL 300 MG ORAL TABLET Take 1 tablet by mouth daily 2012 ALLOPURINOL 44862552945 No Longer Active Corey SEGURA Active CLONIDINE HCL 0.1 MG ORAL TABLET 1 po bid 7 days, then 1/2 t ab po bid 7 days CLONIDINE HCL 66154028629 No Longer Active Corey SEGURA Active COUMADIN 4 MG ORAL TABLET 1 tablet daily WARFAR IN SODIUM 57834615832 No Longer Active Corey SEGURA Active POLYTRIM 97765-1.1 UNIT/ML-% OPHTHALMIC SOLUTION 1 rui p in affected eye every 3 hours while awake x 7 days POLYMYXIN B-TRIMETHOP RIM 78394170910 No Longer Active Corey SEGURA Active LOSARTAN POTASSIUM-HCTZ 100-12.5 MG ORAL TABLET 1 by m outh daily for high blood pressure LOSARTAN POTASSIUM-HCTZ 89655715899 No Longer A ctive Mitch Urbina DO Active LISINOPRIL-HYDROCHLOROTHIAZIDE 20-12.5 MG ORAL TABLET 1 tab by m outh daily LISINOPRIL-HYDROCHLOROTHIAZIDE 74263131132 No Longer Active Mitch Urbina DO Active LISINOPRIL 20 MG ORAL TABLET 1 tab po at HS LIS INOPRIL 90864412148 No Longer Active Mitch Urbina DO Active COUMADIN 5 MG ORAL TABLET 1 by mouth every other day 2 WARFARIN SODIUM 09640918096 No Longer Active Mitch Urbina DO Active COUMADIN 6 MG ORAL TABLET 1 by mouth every other day 2 WARFARIN SODIUM 74836606930 No Longer Active Mitch Urbian DO Active SIMVASTATIN 40 MG ORAL TABLET 1 tab daily at bedtime SIMVASTATIN 27428605579 Active Maria Rivas RN Active SIMVASTATIN 20 MG ORAL TABLET 1 tab daily at bedtime 2 SIMVASTATIN 39096304383 No Longer Active Mitch Urbina DO Active LOVENOX 100 MG/ML SUBCUTANEOUS SOLUTION One injection twice a da y ENOXAPARIN SODIUM 83223510616 No Longer Active Carmine Yusuf MD Active JANUVIA 100 MG ORAL TABLET 1/2 by mouth every day 2011 SITAGLIPTIN PHOSPHATE 37892460053 No Longer Active Bijal Segal RN Acti ve METFORMIN HCL 500 MG ORAL TABLET 2 by mouth twice daily METFORMIN HCL 95561323416 No Longer Active Renee Oconnor LPN Active COLCRYS 0.6 MG ORAL TABLET 1 po q 6 hours prn gout pain COLCHICINE 72083985104 No Longer Active Camila Reese Active LISINOPRIL 5 MG ORAL TABLET 1 by mouth every day 11/17 LISINOPRIL 08900398067 No Longer Active Nguyen Perez Active KLOR-CON 20 MEQ ORAL PACKET Take one by mouth daily 20 09/10/08 POTASSIUM CHLORIDE 75417883166 No Longer Active Nguyen Perez Active FUROSEMIDE 40 MG ORAL TABLET 1 by mouth daily F UROSEMIDE 40252608835 No Longer Active Nguyen Perez Active PROVIGIL 100 MG ORAL TABLET Take one by mouth daily 20 08/20/04 MODAFINIL 46302379553 No Longer Active Mitch Urbina DO Active BACTRIM DS 800-160 MG ORAL TABLET 1 tab by mouth twice daily 201 10/19/09 TRIMETHOPRIM-SULFAMETHOXAZOLE 42833354328 No Longer Active C alberto Hays MD Active ADULT ASPIRIN LOW STRENGTH 81 MG ORAL TABLET DISINTEGR ATING 1 by mouth every daily ASPIRIN 49342126132 Active Mitch W Carlitos DO Ac tive BACTRIM DS 800-160 MG ORAL TABLET 1 tab by mouth twice daily 201 10/19/09 BACTRIM DS 800-160 MG ORAL TABLET 917215 TRIMETHOPRIM-SULFAMETHOXAZOLE Inactive PROVIGIL 100 MG ORAL TABLET Take one by mouth daily 08/20/04 PROVIGIL 100 MG ORAL TABLET 817651 MODAFINIL Inactive FUROSEMIDE 40 MG ORAL TABLET 1 by mouth daily FUROSEMIDE 40 MG ORAL TABLET 908549 FUROSEMIDE Inactive KLOR-CON 20 MEQ ORAL PACKET Take one by mouth daily 09/10/08 KLOR- CON 20 MEQ ORAL PACKET 8540688 POTASSIUM CHLORIDE Inactive LISINOPRIL 5 MG ORAL TABLET 1 by mouth every day 11/17 LISINOPRIL 5 MG ORAL TABLET 912877 LISINOPRIL Inactive COLCRYS 0.6 MG ORAL TABLET 1 po q 6 hours prn gout pain COLCRYS 0.6 MG ORAL TABLET 811797 COLCHICINE Inactive JANUVIA 100 MG ORAL TABLET 1/2 by mouth every day 2011 JANUVIA 100 MG ORAL TABLET SITAGLIPTIN PHOSPHATE Inactive SIMVASTATIN 20 MG ORAL TABLET 1 tab daily at bedtime 2 SIMVASTATIN 20 MG ORAL TABLET 175339 SIMVASTATIN Inactive COUMADIN 6 MG ORAL TABLET 1 by mouth every other day 2 COUMADIN 6 MG ORAL TABLET 728131 WARFARIN SODIUM Inactive COUMADIN 5 MG ORAL TABLET 1 by mouth every other day 2 COUMADIN 5 MG ORAL TABLET 837213 WARFARIN SODIUM Inactive LISINOPRIL 20 MG ORAL TABLET 1 tab po at HS LISINOPRIL 20 MG ORAL TABLET 682544 LISINOPRIL Inactive LISINOPRIL-HYDROCHLOROTHIAZIDE 20-12.5 MG ORAL TABLET 1 tab by m outh daily LISINOPRIL-HYDROCHLOROTHIAZIDE 20-12.5 MG ORAL TABLET 777216 LISINOPRIL-HYDROCHLOROTHIAZIDE Inactive POLYTRIM 84836-9.1 UNIT/ML-% OPHTHALMIC SOLUTION 1 rui p in affected eye every 3 hours while awake x 7 days POLYTRIM 1000 0-0.1 UNIT/ML-% OPHTHALMIC SOLUTION 605464 POLYMYXIN B-TRIMETHOPRIM Inactive COUMADIN 4 MG ORAL TABLET 1 tablet daily COUMADIN 4 MG ORAL TABLET 052318 WARFARIN SODIUM Inactive CLONIDINE HCL 0.1 MG ORAL TABLET 1 po bid 7 days, then 1/2 t ab po bid 7 days CLONIDINE HCL 0.1 MG ORAL TABLET 800833 CLONIDIN E HCL Inactive ALLOPURINOL 300 MG ORAL TABLET Take 1 tablet by mouth daily 2012 ALLOPURINOL 300 MG ORAL TABLET 644789 ALLOPURINOL I nactive MECLIZINE HCL 25 MG ORAL TABLET 1 po tid 3 days, then 1/2 ta b tid 3 days MECLIZINE HCL 25 MG ORAL TABLET 153711 MECLIZINE HCL Inactive AMLODIPINE BESYLATE 5 MG ORAL TABLET 1 tablet by mouth daily 201 01/20/04 AMLODIPINE BESYLATE 5 MG ORAL TABLET 441821 AMLODIPINE BESYLATE Inactive KEFLEX 500 MG ORAL CAPSULE 1 po qid K EFLEX 500 MG ORAL CAPSULE 099475 CEPHALEXIN Inactive COLCRYS 0.6 MG ORAL TABLET 1 tab qid prn gout COLCRYS 0.6 MG ORAL TABLET 906016 COLCHICINE Inactive FAMOTIDINE 20 MG ORAL TABLET by mouth twice a day 2017 FAMOTIDINE 20 MG ORAL TABLET 332450 FAMOTIDINE Inactive GLIMEPIRIDE 2 MG ORAL TABLET 1 po BID GLIMEPIRIDE 2 MG ORAL TABLET 168236 GLIMEPIRIDE Inactive AMLODIPINE BESYLATE 5 MG ORAL TABLET 1 tablet by mouth daily 201 05/19/02 AMLODIPINE BESYLATE 5 MG ORAL TABLET 483954 AMLODIPINE BESYLATE Inactive LOVENOX 100 MG/ML SUBCUTANEOUS SOLUTION One injection twice a da y LOVENOX 100 MG/ML SUBCUTANEOUS SOLUTION 457892 ENOXAPAR IN SODIUM Inactive PREDNISONE 20 MG ORAL TABLET 2 tabs daily for 3 days 1 tab d aily for 3 days PREDNISONE 20 MG ORAL TABLET 855738 PREDNISONE Inactive KEFLEX 500 MG ORAL CAPSULE 1 capsule by mouth three times da rocky x10 days KEFLEX 500 MG ORAL CAPSULE 307429 CEPHALEXIN I nactive Advance Directives Directive Description [...] - Chem istry sodium, serum 138 mmol/L 581-986 3703/11/07 potassium, serum 4.5 mmol/L 3.5-5.2 chloride, serum [...] Panel - Chemistry sodium, serum 140 mmol/L 638-894 9376/11/01 carbon dioxide, venous blood 28.6 mmol/L 21.0-32 [...] mg/dL Encounters Code Encounter Date Provider Facility CPT-13355 90868-Iri Vst-Est Level IV 16:21:22 CDT Bru ce W [facility] CPT-65823 Level 3 Est. Patient 15:18:36 CDT Becky anderson APRN [facility] CPT-20510 04467-Lvl Vst-Est Level IV 10:06:35 CDT Bru ce W [facility] CPT-25376 17976-Kcg Vst-Est Level IV 10:52:00 BOILER SERVICE TECHNICIAN Bru ce W [facility] CPT-45648 Level 3 Est. Patient 18:25:53 CDT Mitch Castellano [facility] CPT-00181 Level 3 Est. Patient 19:43:34 CDT Mitch W Noan luis [facility] CPT-77436 Level 4 Est. Patient 09:30:18 CDT Mitch luis [facility] CPT-17747 Level 3 Est. Patient 15:10:14 CDT Devonjustincarlitos kamara [facility]-11148 Level 3 Est. Patient 15:03:46 CDT Devonsonya Jason [facility]-41626 Level 3 Est. Patient 14:21:06 CDT Mitch luis [facility] CPT-45754 Level 3 Est. Patient 14:52:06 CDT Joe Jason [facility]-48043 Level 3 Est. Patient 09:34:30 BOILER SERVICE TECHNICIAN Mitch luis [facility]-13510 Level 3 Est. Patient 09:37:15 CDT Mitch luis [facility] CPT-88780 Level 3 Est. Patient 17:01:00 BOILER SERVICE TECHNICIAN Mitch luis [facility] CPT-16133 Level 3 Est. Patient 13:53:19 BOILER SERVICE TECHNICIAN Mitch luis [facility] CPT-29387 Level 3 Est. Patient 19:19:37 BOILER SERVICE TECHNICIAN Mitch luis [facility] CPT-54950 Level 3 Est. Patient 13:25:53 BOILER SERVICE TECHNICIAN Tavo toure MD [facility] CPT-36012 Level 3 Est. Patient 18:17:28 CDT Mitch luis [facility] CPT-35538 Level 3 Est. Patient 15:22:57 CDT Mitch luis [facility] CPT-66647 Level 3 Est. Patient 18:21:50 CDT Mitch Ambrose L janelle [facility] CPT-81841 Level 3 Est. Patient 18:20:38 CDT Mitch luis [facility] CPT-72357 Level 3 Est. Patient 15:37:55 CDT Mitch luis [facility] CPT-48468 Level 2 Est. Patient 15:54:44 CDT Carmine benton MD [facility] CPT-58844 Level 3 Est. Patient 21:46:01 BOILER SERVICE TECHNICIAN Mithc luis [facility] CPT-31510 Level 3 Est. Patient 22:15:50 CDT Mitch luis [facility] CPT-06850 Level 3 Est. Patient 10:48:15 CDT Mitch luis [facility] CPT-22703 Level 3 Est. Patient 23:20:57 CDT Tavo toure MD [facility] CPT-52604 Level 3 Est. Patient 16:26:13 CDT Mitch luis [facility] Procedures Code Procedure Name Date Entry Date Standard Desc ription CPT-72565 Venipuncture Draw Fee 18:03:01 BOILER SERVICE TECHNICIAN CPT-28078 Venipuncture Draw Fee 10:44:42 BOILER SERVICE TECHNICIAN CPT-72931 Venipuncture Draw Fee 14:46:55 BOILER SERVICE TECHNICIAN CPT-21845 Venipuncture Draw Fee 08:26:21 CDT CPT-68034 Venous Duplex Left Leg XRAY USE ONLY 10:43:10 CDT CPT-15364 Venipuncture Draw Fee 17:04:55 CDT CPT-10040 Venipuncture Draw Fee 17:20:50 CDT CPT-41334 Venipuncture Draw Fee 18:00:48 CDT CPT-94792 Venipuncture Draw Fee 14:56:20 CDT CPT-JTINJ Asp/Joint Injection 18:47:02 CDT CPT-45536 Venipuncture Draw Fee 09:26:17 CDT CPT-01032 PT/INR - LAB USE ONLY 13:32:49 BOILER SERVICE TECHNICIAN CPT-27545 Venipuncture Draw Fee 13:32:49 BOILER SERVICE TECHNICIAN CPT-94594 PT/INR - LAB USE ONLY 10:34:49 BOILER SERVICE TECHNICIAN CPT-86049 Venipuncture Draw Fee 10:34:48 BOILER SERVICE TECHNICIAN CPT-35566 PT/INR - LAB USE ONLY 09:22:03 BOILER SERVICE TECHNICIAN CPT-92919 Venipuncture Draw Fee 09:22:02 BOILER SERVICE TECHNICIAN CPT-39667 Hemoccult IFOBT - LAB USE ONLY 10:27:22 CDT CPT-24817 Venipuncture Draw Fee 08:27:08 CDT CPT-25638 Liver Profile - LAB USE ONLY 08:27:07 CDT 2 CPT-13346 Microalbumin - LAB USE ONLY 08:27:07 CDT 20 25/05/09 CPT-32558 PT/INR - LAB USE ONLY 08:27:07 CDT CPT-85455 HGBA1C - LAB USE ONLY 08:27:07 CDT CPT-70433 CBC - LAB USE ONLY 08:27:07 CDT CPT-65953 Venipuncture Draw Fee 11:09:14 CDT CPT-53640 Venipuncture Draw Fee 08:32:21 BOILER SERVICE TECHNICIAN CPT-38565 Venipuncture Draw Fee 09:38:56 BOILER SERVICE TECHNICIAN CPT-56521 No Charge Offi Visit 21:36:07 CDT 1 CPT-80971 Venipuncture Draw Fee 10:13:28 BOILER SERVICE TECHNICIAN CPT-02395 Venipuncture Draw Fee 08:31:11 CDT CPT-42360 Aspir/Inject Med Joint 18:17:28 CDT CPT-20460 Venipuncture Draw Fee 10:13:30 CDT CPT-41136 Venipuncture Draw Fee 08:31:43 BOILER SERVICE TECHNICIAN CPT-JTINJ Joint Injection 18:34:50 CDT CPT-16156 Knee 3V 12:25:09 CDT CPT-55940 Venipuncture Draw Fee 12:15:57 CDT CPT-060 Medical Surveillance Exam 21:31:43 CDT 2011 CPT-11056 Venipuncture Draw Fee 08:32:05 BOILER SERVICE TECHNICIAN CPT-OV Office Visit 18:19:06 CDT
--- OUTSIDE RECORDS SUMMARY | 2020-01-18 14:07 | XMS REPORT | Clinical Summary ---
Author Author Admin, Mitch Leon Organization [facility] Address Unknown Phone Unavailable Allergies, Adverse Reactions, [...] TAKE 1 TABLET DAILY SITAGLIPT IN PHOSPHATE 74177412015 Active Maria Rivas RN Active INVOKANA TABS 100MG TAKE 1 TABLET DAILY CANAGLIFL OZIN 23853591685 Active Maria Rivas RN Active AMLODIPINE BESYLATE 5 MG ORAL TABLET 1 tablet by mouth daily 201 05/19/02 AMLODIPINE BESYLATE 82534969942 No Longer Active Maria Briones Active WARFARIN TABS 1MG TAKE 2 TABLETS (2 MG) DAILY WITH THE 5 MG TABLET TO EQUAL 7 MG DAILY WARFARIN SODIUM 34533444176 Active Maria Briones Active WARFARIN SODIUM 5 MG TABS TAKE 1 TABLET DAILY W ARFARIN SODIUM 69108335966 Active Allison BALC Active KEFLEX 500 MG ORAL CAPSULE 1 capsule by mouth three times da rocky x10 days CEPHALEXIN 15213825572 No Longer Active Maria landaverde RN Active METOPROLOL TARTRATE TABS 50MG TAKE 1 TABLET TWICE A DAY ([facility]) METOPROLOL TARTRATE 49548814646 Active Maria Briones Active DOXAZOSIN MESYLATE 2 MG ORAL TABLET 1 po q day for pr ostate and blood pressure DOXAZOSIN MESYLATE 48999441755 Active Mitch Urbina DO Active LOSARTAN TABS 100MG TAKE 1 TABLET DAILY FOR BLOOD PRESSURE LOSARTAN POTASSIUM 90175321880 Active Maria Rivas RN Active FLUTICASONE PROPIONATE 50 MCG/ACT NASAL SUSPENSION 1 s pray each nostril twice daily for 1 week, then once daily FLUTICASONE MT OPIONATE 94705474244 Active Becky Sell SAND TEMPERER Active PREDNISONE 20 MG ORAL TABLET 2 tabs daily for 3 days 1 tab d aily for 3 days PREDNISONE 69930815193 No Longer Active Becky Sell SAND TEMPERER Active MINOXIDIL 2.5 MG ORAL TABLET 1 tablet twice daily for high b lood pressure MINOXIDIL 29815262363 Active Mitch Urbina DO Ac tive METFORMIN HCL ER 500 MG ORAL TABLET EXTENDED RELEASE 2 4 HOUR 2 tablets by mouth twice daily METFORMIN HCL 09261012982 Active Mitch Urbina DO Active GLIMEPIRIDE 4 MG ORAL TABLET 1 tablet by mouth twice daily f or diabetes GLIMEPIRIDE 53632842446 Active Mitch Urbina DO Active GLIMEPIRIDE 2 MG ORAL TABLET 1 po BID GLIMEPI RIDE 14151636959 No Longer Active Mitch Urbina DO Active PROVIGIL 200 MG ORAL TABLET 1/2 tab po q day MODA FINIL 21391013623 Active Maria Rivas RN Active FAMOTIDINE 20 MG ORAL TABLET by mouth twice a day 2017 FAMOTIDINE 18381403351 No Longer Active Mitch Urbina DO Active COLCRYS 0.6 MG ORAL TABLET 1 tab qid prn gout C OLCHICINE 83724025601 No Longer Active Mitch Urbina DO Active KEFLEX 500 MG ORAL CAPSULE 1 po qid CEPHALEXI N 26623448352 No Longer Active Mitch Urbina DO Active AMLODIPINE BESYLATE 5 MG ORAL TABLET 1 tablet by mouth daily 201 01/20/04 AMLODIPINE BESYLATE 70159511170 No Longer Active Joe fulton APRN Active MITIGARE 0.6 MG ORAL CAPSULE 2 capsules at onset of go ut pain, then take one capsule at 1 hour if symptoms persist. COLCHICINE 59 951518594 Active Mitch Urbina DO Active MECLIZINE HCL 25 MG ORAL TABLET 1 po tid 3 days, then 1/2 ta b tid 3 days MECLIZINE HCL 76536821897 No Longer Active Corey SEGURA Active ALLOPURINOL 300 MG ORAL TABLET Take 1 tablet by mouth daily 2012 ALLOPURINOL 78035963231 No Longer Active Corey SEGURA Active CLONIDINE HCL 0.1 MG ORAL TABLET 1 po bid 7 days, then 1/2 t ab po bid 7 days CLONIDINE HCL 53073563738 No Longer Active Corey SEGURA Active COUMADIN 4 MG ORAL TABLET 1 tablet daily WARFAR IN SODIUM 89225116126 No Longer Active Corey SEGURA Active POLYTRIM 39364-2.1 UNIT/ML-% OPHTHALMIC SOLUTION 1 rui p in affected eye every 3 hours while awake x 7 days POLYMYXIN B-TRIMETHOP RIM 29868893183 No Longer Active Corey SEGURA Active LOSARTAN POTASSIUM-HCTZ 100-12.5 MG ORAL TABLET 1 by m outh daily for high blood pressure LOSARTAN POTASSIUM-HCTZ 81085900122 No Longer A ctive Mitch Urbina DO Active LISINOPRIL-HYDROCHLOROTHIAZIDE 20-12.5 MG ORAL TABLET 1 tab by m outh daily LISINOPRIL-HYDROCHLOROTHIAZIDE 71022821720 No Longer Active Mitch Urbina DO Active LISINOPRIL 20 MG ORAL TABLET 1 tab po at HS LIS INOPRIL 57916022624 No Longer Active Mitch Urbina DO Active COUMADIN 5 MG ORAL TABLET 1 by mouth every other day 2 WARFARIN SODIUM 72762560128 No Longer Active Mitch Urbina DO Active COUMADIN 6 MG ORAL TABLET 1 by mouth every other day 2 WARFARIN SODIUM 64936838194 No Longer Active Mitch Urbina DO Active SIMVASTATIN 40 MG ORAL TABLET 1 tab daily at bedtime SIMVASTATIN 25897981498 Active Mariajoey Rivas RN Active SIMVASTATIN 20 MG ORAL TABLET 1 tab daily at bedtime 2 SIMVASTATIN 39841386450 No Longer Active Mitch Urbina DO Active LOVENOX 100 MG/ML SUBCUTANEOUS SOLUTION One injection twice a da y ENOXAPARIN SODIUM 91148584315 No Longer Active Carmine Yusuf MD Active JANUVIA 100 MG ORAL TABLET 1/2 by mouth every day 2011 SITAGLIPTIN PHOSPHATE 16458650646 No Longer Active Bijal Segal RN Acti ve METFORMIN HCL 500 MG ORAL TABLET 2 by mouth twice daily METFORMIN HCL 96020757796 No Longer Active Renee Oconnor LPN Active COLCRYS 0.6 MG ORAL TABLET 1 po q 6 hours prn gout pain COLCHICINE 90122197418 No Longer Active Camila Reese Active LISINOPRIL 5 MG ORAL TABLET 1 by mouth every day 11/17 LISINOPRIL 13895626528 No Longer Active Nguyen Perez Active KLOR-CON 20 MEQ ORAL PACKET Take one by mouth daily 20 09/10/08 POTASSIUM CHLORIDE 81571590111 No Longer Active Nguyen Perez Active FUROSEMIDE 40 MG ORAL TABLET 1 by mouth daily F UROSEMIDE 62791448584 No Longer Active Nguyen Perez Active PROVIGIL 100 MG ORAL TABLET Take one by mouth daily 08/20/04 MODAFINIL 36395884010 No Longer Active Mitch Urbina DO Active BACTRIM DS 800-160 MG ORAL TABLET 1 tab by mouth twice daily 201 10/19/09 TRIMETHOPRIM-SULFAMETHOXAZOLE 71884197744 No Longer Active C alberto Hays MD Active ADULT ASPIRIN LOW STRENGTH 81 MG ORAL TABLET DISINTEGR ATING 1 by mouth every daily ASPIRIN 19994255354 Active Mitch W Carlitos DO Ac tive BACTRIM DS 800-160 MG ORAL TABLET 1 tab by mouth twice daily 201 10/19/09 BACTRIM DS 800-160 MG ORAL TABLET 327585 TRIMETHOPRIM-SULFAMETHOXAZOLE Inactive PROVIGIL 100 MG ORAL TABLET Take one by mouth daily 08/20/04 PROVIGIL 100 MG ORAL TABLET 464718 MODAFINIL Inactive FUROSEMIDE 40 MG ORAL TABLET 1 by mouth daily FUROSEMIDE 40 MG ORAL TABLET 763130 FUROSEMIDE Inactive KLOR-CON 20 MEQ ORAL PACKET Take one by mouth daily 09/10/08 KLOR- CON 20 MEQ ORAL PACKET 7127739 POTASSIUM CHLORIDE Inactive LISINOPRIL 5 MG ORAL TABLET 1 by mouth every day 11/17 LISINOPRIL 5 MG ORAL TABLET 240934 LISINOPRIL Inactive COLCRYS 0.6 MG ORAL TABLET 1 po q 6 hours prn gout pain COLCRYS 0.6 MG ORAL TABLET 965033 COLCHICINE Inactive JANUVIA 100 MG ORAL TABLET 1/2 by mouth every day 2011 JANUVIA 100 MG ORAL TABLET SITAGLIPTIN PHOSPHATE Inactive SIMVASTATIN 20 MG ORAL TABLET 1 tab daily at bedtime 2 SIMVASTATIN 20 MG ORAL TABLET 220080 SIMVASTATIN Inactive COUMADIN 6 MG ORAL TABLET 1 by mouth every other day 2 COUMADIN 6 MG ORAL TABLET 898377 WARFARIN SODIUM Inactive COUMADIN 5 MG ORAL TABLET 1 by mouth every other day 2 COUMADIN 5 MG ORAL TABLET 331573 WARFARIN SODIUM Inactive LISINOPRIL 20 MG ORAL TABLET 1 tab po at HS LISINOPRIL 20 MG ORAL TABLET 606654 LISINOPRIL Inactive LISINOPRIL-HYDROCHLOROTHIAZIDE 20-12.5 MG ORAL TABLET 1 tab by m outh daily LISINOPRIL-HYDROCHLOROTHIAZIDE 20-12.5 MG ORAL TABLET 766497 LISINOPRIL-HYDROCHLOROTHIAZIDE Inactive POLYTRIM 34715-3.1 UNIT/ML-% OPHTHALMIC SOLUTION 1 rui p in affected eye every 3 hours while awake x 7 days POLYTRIM 1000 0-0.1 UNIT/ML-% OPHTHALMIC SOLUTION 888790 POLYMYXIN B-TRIMETHOPRIM Inactive COUMADIN 4 MG ORAL TABLET 1 tablet daily COUMADIN 4 MG ORAL TABLET 369667 WARFARIN SODIUM Inactive CLONIDINE HCL 0.1 MG ORAL TABLET 1 po bid 7 days, then 1/2 t ab po bid 7 days CLONIDINE HCL 0.1 MG ORAL TABLET 233249 CLONIDIN E HCL Inactive ALLOPURINOL 300 MG ORAL TABLET Take 1 tablet by mouth daily 2012 ALLOPURINOL 300 MG ORAL TABLET 509924 ALLOPURINOL I nactive MECLIZINE HCL 25 MG ORAL TABLET 1 po tid 3 days, then 1/2 ta b tid 3 days MECLIZINE HCL 25 MG ORAL TABLET 749316 MECLIZINE HCL Inactive AMLODIPINE BESYLATE 5 MG ORAL TABLET 1 tablet by mouth daily 201 01/20/04 AMLODIPINE BESYLATE 5 MG ORAL TABLET 065982 AMLODIPINE BESYLATE Inactive KEFLEX 500 MG ORAL CAPSULE 1 po qid K EFLEX 500 MG ORAL CAPSULE 132634 CEPHALEXIN Inactive COLCRYS 0.6 MG ORAL TABLET 1 tab qid prn gout COLCRYS 0.6 MG ORAL TABLET 460899 COLCHICINE Inactive FAMOTIDINE 20 MG ORAL TABLET by mouth twice a day 2017 FAMOTIDINE 20 MG ORAL TABLET 341503 FAMOTIDINE Inactive GLIMEPIRIDE 2 MG ORAL TABLET 1 po BID GLIMEPIRIDE 2 MG ORAL TABLET 265615 GLIMEPIRIDE Inactive AMLODIPINE BESYLATE 5 MG ORAL TABLET 1 tablet by mouth daily 201 05/19/02 AMLODIPINE BESYLATE 5 MG ORAL TABLET 389452 AMLODIPINE BESYLATE Inactive LOVENOX 100 MG/ML SUBCUTANEOUS SOLUTION One injection twice a da y LOVENOX 100 MG/ML SUBCUTANEOUS SOLUTION 153943 ENOXAPAR IN SODIUM Inactive PREDNISONE 20 MG ORAL TABLET 2 tabs daily for 3 days 1 tab d aily for 3 days PREDNISONE 20 MG ORAL TABLET 515728 PREDNISONE Inactive KEFLEX 500 MG ORAL CAPSULE 1 capsule by mouth three times da rocky x10 days KEFLEX 500 MG ORAL CAPSULE 257877 CEPHALEXIN I nactive Advance Directives Directive Description [...] - Chem istry sodium, serum 138 mmol/L 448-069 5689/11/07 potassium, serum 4.5 mmol/L 3.5-5.2 chloride, serum [...] Panel - Chemistry sodium, serum 140 mmol/L 130-895 3588/11/01 carbon dioxide, venous blood 28.6 mmol/L 21.0-32 [...] 11 .6-14.8 platelet count 326 10^3/MM^3 10*3/mm3 093-029 2507/11/01 erythrocyte (RBC) count 5.24 10^6/MM^3 10*6/mm3 4.50-6.5 [...] mg/dL Encounters Code Encounter Date Provider Facility CPT-93113 [id number] Vst-Est Level IV 16:21:22 CDT Bru ce [facility] CPT-67638 Level 3 Est. Patient 15:18:36 CDT Becky anderson APRN [facility] CPT-75034 [id number]-Qeo Vst-Est Level IV 10:06:35 CDT Bru ce [facility] CPT-26652 68617-Wus Vst-Est Level IV 10:52:00 REHABILITATION TEACHER Bru ce W [facility] CPT-61483 Level 3 Est. Patient 18:25:53 CDT Mitch W L [facility] CPT-92937 Level 3 Est. Patient 19:43:34 CDT Mitch luis [facility] CPT-59658 Level 4 Est. Patient 09:30:18 CDT Mitch luis [facility] CPT-67632 Level 3 Est. Patient 15:10:14 CDT Devonjustincarlitos Gomez [facility] CPT-04476 Level 3 Est. Patient 15:03:46 CDT Devonsonya Jason [facility] CPT-51439 Level 3 Est. Patient 14:21:06 CDT Mitch luis [facility]-33179 Level 3 Est. Patient 14:52:06 CDT Joe Jason [facility] CPT-54579 Level 3 Est. Patient 09:34:30 REHABILITATION TEACHER Mitch luis [facility]-24226 Level 3 Est. Patient 09:37:15 CDT Mitch luis [facility] CPT-75167 Level 3 Est. Patient 17:01:00 REHABILITATION TEACHER Mitch luis [facility] CPT-99711 Level 3 Est. Patient 13:53:19 REHABILITATION TEACHER Mitch luis [facility] CPT-14371 Level 3 Est. Patient 19:19:37 REHABILITATION TEACHER Mitch luis [facility] CPT-75454 Level 3 Est. Patient 13:25:53 REHABILITATION TEACHER Tavo toure MD [facility] CPT-60936 Level 3 Est. Patient 18:17:28 CDT Mitch luis [facility] CPT-45783 Level 3 Est. Patient 15:22:57 CDT Mitch luis [facility] CPT-01336 Level 3 Est. Patient 18:21:50 CDT Mitch lius [facility] CPT-90798 Level 3 Est. Patient 18:20:38 CDT Mitch luis [facility] CPT-94707 Level 3 Est. Patient 15:37:55 CDT Mitch luis [facility] CPT-84958 Level 2 Est. Patient 15:54:44 CDT Carmine benton MD [facility] CPT-33972 Level 3 Est. Patient 21:46:01 REHABILITATION TEACHER Mitch luis [facility] CPT-33028 Level 3 Est. Patient 22:15:50 CDT Mitch luis [facility] CPT-29732 Level 3 Est. Patient 10:48:15 CDT Mitch luis [facility] CPT-90117 Level 3 Est. Patient 23:20:57 CDT Tavo toure MD [facility] CPT-57098 Level 3 Est. Patient 16:26:13 CDT Mitch luis [facility] Procedures Code Procedure Name Date Entry Date Standard Desc ription CPT-01100 Venipuncture Draw Fee 18:03:01 REHABILITATION TEACHER CPT-42009 Venipuncture Draw Fee 10:44:42 REHABILITATION TEACHER CPT-42026 Venipuncture Draw Fee 14:46:55 REHABILITATION TEACHER CPT-70522 Venipuncture Draw Fee 08:26:21 CDT CPT-96005 Venous Duplex Left Leg XRAY USE ONLY 10:43:10 CDT CPT-95721 Venipuncture Draw Fee 17:04:55 CDT CPT-64444 Venipuncture Draw Fee 17:20:50 CDT CPT-28190 Venipuncture Draw Fee 18:00:48 CDT CPT-65023 Venipuncture Draw Fee 14:56:20 CDT CPT-JTINJ Asp/Joint Injection 18:47:02 CDT CPT-87506 Venipuncture Draw Fee 09:26:17 CDT CPT-37698 PT/INR - LAB USE ONLY 13:32:49 REHABILITATION TEACHER CPT-40347 Venipuncture Draw Fee 13:32:49 REHABILITATION TEACHER CPT-88260 PT/INR - LAB USE ONLY 10:34:49 REHABILITATION TEACHER CPT-31400 Venipuncture Draw Fee 10:34:48 REHABILITATION TEACHER CPT-60445 PT/INR - LAB USE ONLY 09:22:03 REHABILITATION TEACHER CPT-06435 Venipuncture Draw Fee 09:22:02 REHABILITATION TEACHER CPT-88069 Hemoccult IFOBT - LAB USE ONLY 10:27:22 CDT CPT-01176 Venipuncture Draw Fee 08:27:08 CDT CPT-69265 Liver Profile - LAB USE ONLY 08:27:07 CDT 2 CPT-21342 Microalbumin - LAB USE ONLY 08:27:07 CDT 20 25/05/09 CPT-32650 PT/INR - LAB USE ONLY 08:27:07 CDT CPT-75167 HGBA1C - LAB USE ONLY 08:27:07 CDT CPT-97983 CBC - LAB USE ONLY 08:27:07 CDT CPT-06437 Venipuncture Draw Fee 11:09:14 CDT CPT-32714 Venipuncture Draw Fee 08:32:21 REHABILITATION TEACHER CPT-75712 Venipuncture Draw Fee 09:38:56 REHABILITATION TEACHER CPT-26117 No Charge Offi Visit 21:36:07 CDT 1 CPT-43652 Venipuncture Draw Fee 10:13:28 REHABILITATION TEACHER CPT-00561 Venipuncture Draw Fee 08:31:11 CDT CPT-27976 Aspir/Inject Med Joint 18:17:28 CDT CPT-27971 Venipuncture Draw Fee 10:13:30 CDT CPT-30718 Venipuncture Draw Fee 08:31:43 REHABILITATION TEACHER CPT-JTINJ Joint Injection 18:34:50 CDT CPT-52602 Knee 3V 12:25:09 CDT CPT-33175 Venipuncture Draw Fee 12:15:57 CDT CPT-060 Medical Surveillance Exam 21:31:43 CDT 2011 CPT-68065 Venipuncture Draw Fee 08:32:05 REHABILITATION TEACHER CPT-OV Office Visit 18:19:06 CDT
--- OUTSIDE RECORDS SUMMARY | 2020-01-18 14:07 | XMS REPORT | Clinical Summary ---
Author Author Admin, Mitch Leon Organization [facility] Address Unknown Phone Unavailable Allergies, Adverse [...] atherosclerosis of unspecified type of vessel, [place] or graft EDEMA 782.3 Resolved Mitch Urbina [...] system CELLULITIS, GROIN, LEFT ICD-682.2 Inactive Zoya Urbina DO SEROMA ICD-998.13 Inactive Mitch Urbina DO REACTIVE HYPOGLYCEMIA ICD-251.2 Inactive Mitch Arnol Urbina LONG-TERM (CURRENT) USE OF ANTICOAGULANTS ICD-V58.61 Inactive Mitch Arnol Urbina EDEMA ICD-782.3 Inactive Mitch Arnol Carlitos VELASQUEZ DIZZINESS ICD-780.4 Inactive Mitch Arnol Urbina DO 10/23 GOUT, RIGHT WRIST ICD-274.9 Inactive Mitch Grover e BRUISE ICD-924.9 Inactive Mitch W Carlitos VELASQUEZ OLECRANON BURSITIS, RIGHT ICD-726.33 Inactive Mitch Urbina [...] TAKE 1 TABLET DAILY SITAGLIPT IN PHOSPHATE 92762713128 Active Mitch Urbina DO Active INVOKANA TABS 100MG TAKE 1 TABLET DAILY CANAGLIFL OZIN 68322289533 Active Mitch Urbina DO Active AMLODIPINE BESYLATE 5 MG ORAL TABLET 1 tablet by mouth daily 201 05/19/02 AMLODIPINE BESYLATE 12916391539 No Longer Active Maria Briones Active WARFARIN TABS 1MG TAKE 2 TABLETS (2 MG) DAILY WITH THE 5 MG TABLET TO EQUAL 7 MG DAILY WARFARIN SODIUM 26887368409 Active Maria Briones Active WARFARIN SODIUM 5 MG TABS TAKE 1 TABLET DAILY W ARFARIN SODIUM 07955916695 Active Maria Rivas RN Active KEFLEX 500 MG ORAL CAPSULE 1 capsule by mouth three times da rocky x10 days CEPHALEXIN 18308085036 No Longer Active Maria landaverde RN Active METOPROLOL TARTRATE TABS 50MG TAKE 1 TABLET TWICE A DAY ([facility]) METOPROLOL TARTRATE 31203305274 Active Maria Briones Active DOXAZOSIN MESYLATE 2 MG ORAL TABLET 1 po q day for pr ostate and blood pressure DOXAZOSIN MESYLATE 37704088524 Active Mitch Urbina DO Active LOSARTAN TABS 100MG TAKE 1 TABLET DAILY FOR BLOOD PRESSURE LOSARTAN POTASSIUM 38235792785 Active Maria Rivas RN Active FLUTICASONE PROPIONATE 50 MCG/ACT NASAL SUSPENSION 1 s pray each nostril twice daily for 1 week, then once daily FLUTICASONE IN OPIONATE 94206607304 Active Becky Sell AREA ATTENDANT Active PREDNISONE 20 MG ORAL TABLET 2 tabs daily for 3 days 1 tab d aily for 3 days PREDNISONE 52989440013 No Longer Active Becky Sell AREA ATTENDANT Active MINOXIDIL 2.5 MG ORAL TABLET 1 tablet twice daily for high b lood pressure MINOXIDIL 91845315912 Active Mitch Urbina DO Ac tive METFORMIN HCL ER 500 MG ORAL TABLET EXTENDED RELEASE 2 4 HOUR 2 tablets by mouth twice daily METFORMIN HCL 30227223621 Active Mitch Urbina DO Active GLIMEPIRIDE 4 MG ORAL TABLET 1 tablet by mouth twice daily f or diabetes GLIMEPIRIDE 03228608924 Active Mitch Urbina DO Active GLIMEPIRIDE 2 MG ORAL TABLET 1 po BID GLIMEPI RIDE 90816041962 No Longer Active Mitch Urbina DO Active PROVIGIL 200 MG ORAL TABLET 1/2 tab po q day MODA FINIL 39515962259 Active Maria Rivas RN Active FAMOTIDINE 20 MG ORAL TABLET by mouth twice a day 2017 FAMOTIDINE 53534784619 No Longer Active Mitch Urbina DO Active COLCRYS 0.6 MG ORAL TABLET 1 tab qid prn gout C OLCHICINE 36285104494 No Longer Active Mitch Urbina DO Active KEFLEX 500 MG ORAL CAPSULE 1 po qid CEPHALEXI N 68226070730 No Longer Active Mitch Urbina DO Active AMLODIPINE BESYLATE 5 MG ORAL TABLET 1 tablet by mouth daily 201 01/20/04 AMLODIPINE BESYLATE 65024053042 No Longer Active Joe fulton APRN Active MITIGARE 0.6 MG ORAL CAPSULE 2 capsules at onset of go ut pain, then take one capsule at 1 hour if symptoms persist. COLCHICINE 59 227314601 Active Mitch Urbina DO Active MECLIZINE HCL 25 MG ORAL TABLET 1 po tid 3 days, then 1/2 ta b tid 3 days MECLIZINE HCL 76891791692 No Longer Active Corey SEGURA Active ALLOPURINOL 300 MG ORAL TABLET Take 1 tablet by mouth daily 2012 ALLOPURINOL 04114833502 No Longer Active Corey SEGURA Active CLONIDINE HCL 0.1 MG ORAL TABLET 1 po bid 7 days, then 1/2 t ab po bid 7 days CLONIDINE HCL 17791661625 No Longer Active Corey SEGURA Active COUMADIN 4 MG ORAL TABLET 1 tablet daily WARFAR IN SODIUM 26321752410 No Longer Active Corey SEGURA Active POLYTRIM 61079-8.1 UNIT/ML-% OPHTHALMIC SOLUTION 1 rui p in affected eye every 3 hours while awake x 7 days POLYMYXIN B-TRIMETHOP RIM 83105515287 No Longer Active Corey SEGURA Active LOSARTAN POTASSIUM-HCTZ 100-12.5 MG ORAL TABLET 1 by m outh daily for high blood pressure LOSARTAN POTASSIUM-HCTZ 41216583040 No Longer A ctive Mitch Urbina DO Active LISINOPRIL-HYDROCHLOROTHIAZIDE 20-12.5 MG ORAL TABLET 1 tab by m outh daily LISINOPRIL-HYDROCHLOROTHIAZIDE 08511444360 No Longer Active Mitch Urbina DO Active LISINOPRIL 20 MG ORAL TABLET 1 tab po at HS LIS INOPRIL 65225703870 No Longer Active Mitch Urbina DO Active COUMADIN 5 MG ORAL TABLET 1 by mouth every other day 2 WARFARIN SODIUM 61358321340 No Longer Active Mitch Urbina DO Active COUMADIN 6 MG ORAL TABLET 1 by mouth every other day 2 WARFARIN SODIUM 81699313132 No Longer Active Mitch Urbina DO Active SIMVASTATIN 40 MG ORAL TABLET 1 tab daily at bedtime SIMVASTATIN 62484500013 Active Mariajoey Rivas RN Active SIMVASTATIN 20 MG ORAL TABLET 1 tab daily at bedtime 2 SIMVASTATIN 75355907231 No Longer Active Mitch Urbina DO Active LOVENOX 100 MG/ML SUBCUTANEOUS SOLUTION One injection twice a da y ENOXAPARIN SODIUM 01855752922 No Longer Active Carmine Yusuf MD Active JANUVIA 100 MG ORAL TABLET 1/2 by mouth every day 2011 SITAGLIPTIN PHOSPHATE 42962450360 No Longer Active Bijal Segal RN Acti ve METFORMIN HCL 500 MG ORAL TABLET 2 by mouth twice daily METFORMIN HCL 39509410537 No Longer Active Renee Oconnor LPN Active COLCRYS 0.6 MG ORAL TABLET 1 po q 6 hours prn gout pain COLCHICINE 01294563506 No Longer Active Camila Reese Active LISINOPRIL 5 MG ORAL TABLET 1 by mouth every day 11/17 LISINOPRIL 50443242138 No Longer Active Nguyen Perez Active KLOR-CON 20 MEQ ORAL PACKET Take one by mouth daily 20 09/10/08 POTASSIUM CHLORIDE 48497674734 No Longer Active Nguyen Perez Active FUROSEMIDE 40 MG ORAL TABLET 1 by mouth daily F UROSEMIDE 11206097239 No Longer Active Nguyen Perez Active PROVIGIL 100 MG ORAL TABLET Take one by mouth daily 20 08/20/04 MODAFINIL 22486392759 No Longer Active Mitch Urbina DO Active BACTRIM DS 800-160 MG ORAL TABLET 1 tab by mouth twice daily 201 10/19/09 TRIMETHOPRIM-SULFAMETHOXAZOLE 82041306669 No Longer Active C alberto Hays MD Active ADULT ASPIRIN LOW STRENGTH 81 MG ORAL TABLET DISINTEGR ATING 1 by mouth every daily ASPIRIN 66406049316 Active Mitch W Carlitos DO Ac tive BACTRIM DS 800-160 MG ORAL TABLET 1 tab by mouth twice daily 201 10/19/09 BACTRIM DS 800-160 MG ORAL TABLET 554036 TRIMETHOPRIM-SULFAMETHOXAZOLE Inactive PROVIGIL 100 MG ORAL TABLET Take one by mouth daily 20 08/20/04 PROVIGIL 100 MG ORAL TABLET 583230 MODAFINIL Inactive FUROSEMIDE 40 MG ORAL TABLET 1 by mouth daily FUROSEMIDE 40 MG ORAL TABLET 526590 FUROSEMIDE Inactive KLOR-CON 20 MEQ ORAL PACKET Take one by mouth daily 09/10/08 KLOR- CON 20 MEQ ORAL PACKET 2131563 POTASSIUM CHLORIDE Inactive LISINOPRIL 5 MG ORAL TABLET 1 by mouth every day 11/17 LISINOPRIL 5 MG ORAL TABLET 990890 LISINOPRIL Inactive COLCRYS 0.6 MG ORAL TABLET 1 po q 6 hours prn gout pain COLCRYS 0.6 MG ORAL TABLET 382622 COLCHICINE Inactive JANUVIA 100 MG ORAL TABLET 1/2 by mouth every day 2011 JANUVIA 100 MG ORAL TABLET SITAGLIPTIN PHOSPHATE Inactive SIMVASTATIN 20 MG ORAL TABLET 1 tab daily at bedtime 2 SIMVASTATIN 20 MG ORAL TABLET 572013 SIMVASTATIN Inactive COUMADIN 6 MG ORAL TABLET 1 by mouth every other day 2 COUMADIN 6 MG ORAL TABLET 233224 WARFARIN SODIUM Inactive COUMADIN 5 MG ORAL TABLET 1 by mouth every other day 2 COUMADIN 5 MG ORAL TABLET 480829 WARFARIN SODIUM Inactive LISINOPRIL 20 MG ORAL TABLET 1 tab po at HS LISINOPRIL 20 MG ORAL TABLET 704216 LISINOPRIL Inactive LISINOPRIL-HYDROCHLOROTHIAZIDE 20-12.5 MG ORAL TABLET 1 tab by m outh daily LISINOPRIL-HYDROCHLOROTHIAZIDE 20-12.5 MG ORAL TABLET 110120 LISINOPRIL-HYDROCHLOROTHIAZIDE Inactive POLYTRIM 00876-9.1 UNIT/ML-% OPHTHALMIC SOLUTION 1 rui p in affected eye every 3 hours while awake x 7 days POLYTRIM 1000 0-0.1 UNIT/ML-% OPHTHALMIC SOLUTION 581459 POLYMYXIN B-TRIMETHOPRIM Inactive COUMADIN 4 MG ORAL TABLET 1 tablet daily COUMADIN 4 MG ORAL TABLET 720700 WARFARIN SODIUM Inactive CLONIDINE HCL 0.1 MG ORAL TABLET 1 po bid 7 days, then 1/2 t ab po bid 7 days CLONIDINE HCL 0.1 MG ORAL TABLET 467918 CLONIDIN E HCL Inactive ALLOPURINOL 300 MG ORAL TABLET Take 1 tablet by mouth daily 2012 ALLOPURINOL 300 MG ORAL TABLET 501347 ALLOPURINOL I nactive MECLIZINE HCL 25 MG ORAL TABLET 1 po tid 3 days, then 1/2 ta b tid 3 days MECLIZINE HCL 25 MG ORAL TABLET 333166 MECLIZINE HCL Inactive AMLODIPINE BESYLATE 5 MG ORAL TABLET 1 tablet by mouth daily 201 01/20/04 AMLODIPINE BESYLATE 5 MG ORAL TABLET 576358 AMLODIPINE BESYLATE Inactive KEFLEX 500 MG ORAL CAPSULE 1 po qid K EFLEX 500 MG ORAL CAPSULE 107678 CEPHALEXIN Inactive COLCRYS 0.6 MG ORAL TABLET 1 tab qid prn gout COLCRYS 0.6 MG ORAL TABLET 540418 COLCHICINE Inactive FAMOTIDINE 20 MG ORAL TABLET by mouth twice a day 2017 FAMOTIDINE 20 MG ORAL TABLET 431083 FAMOTIDINE Inactive GLIMEPIRIDE 2 MG ORAL TABLET 1 po BID GLIMEPIRIDE 2 MG ORAL TABLET 456480 GLIMEPIRIDE Inactive AMLODIPINE BESYLATE 5 MG ORAL TABLET 1 tablet by mouth daily 201 05/19/02 AMLODIPINE BESYLATE 5 MG ORAL TABLET 706114 AMLODIPINE BESYLATE Inactive LOVENOX 100 MG/ML SUBCUTANEOUS SOLUTION One injection twice a da y LOVENOX 100 MG/ML SUBCUTANEOUS SOLUTION 640176 ENOXAPAR IN SODIUM Inactive PREDNISONE 20 MG ORAL TABLET 2 tabs daily for 3 days 1 tab d aily for 3 days PREDNISONE 20 MG ORAL TABLET 651917 PREDNISONE Inactive KEFLEX 500 MG ORAL CAPSULE 1 capsule by mouth three times da rocky x10 days KEFLEX 500 MG ORAL CAPSULE 585558 CEPHALEXIN I nactive Advance Directives Directive Description [...] - Chem istry sodium, serum 138 mmol/L 020-638 3248/11/07 potassium, serum 4.5 mmol/L 3.5-5.2 chloride, serum [...] Panel - Chemistry sodium, serum 140 mmol/L 984-703 7667/11/01 carbon dioxide, venous blood 28.6 mmol/L 21.0-32 [...] mg/dL Encounters Code Encounter Date Provider Facility CPT-18655 [id number] Vst-Est Level IV 16:21:22 CDT Bru ce W [facility] CPT-13227 Level 3 Est. Patient 15:18:36 CDT Becky ll AREA ATTENDANT [facility] CPT-10164 79472-Yxi Vst-Est Level IV 10:06:35 CDT Bru ce W [facility] CPT-12713 [id number] Vst-Est Level IV 10:52:00 GEOPHYSICAL DATA TECHNICIAN Bru ce W [facility] CPT-28683 Level 3 Est. Patient 18:25:53 CDT Mitch Castellano [facility] CPT-74088 Level 3 Est. Patient 19:43:34 CDT Mitch W Nona luis [facility] CPT-13875 Level 4 Est. Patient 09:30:18 CDT Mitch luis [facility] CPT-06022 Level 3 Est. Patient 15:10:14 [facility] Level 3 Est. Patient 15:03:46 CDT Joe Jason [facility] CPT-97351 Level 3 Est. Patient 14:21:06 CDT Mitch luis [facility] CPT-06888 Level 3 Est. Patient 14:52:06 CDT Joe Jason [facility] CPT-96104 Level 3 Est. Patient 09:34:30 GEOPHYSICAL DATA TECHNICIAN Mitch luis [facility]-36858 Level 3 Est. Patient 09:37:15 CDT Mitch luis [facility] CPT-46817 Level 3 Est. Patient 17:01:00 GEOPHYSICAL DATA TECHNICIAN Mitch luis [facility] CPT-49556 Level 3 Est. Patient 13:53:19 GEOPHYSICAL DATA TECHNICIAN Mitch luis [facility] CPT-09411 Level 3 Est. Patient 19:19:37 GEOPHYSICAL DATA TECHNICIAN Mitch luis [facility] CPT-30118 Level 3 Est. Patient 13:25:53 GEOPHYSICAL DATA TECHNICIAN Tavo toure MD [facility] CPT-81387 Level 3 Est. Patient 18:17:28 CDT Mitch luis [facility] CPT-96216 Level 3 Est. Patient 15:22:57 CDT Mitch luis [facility] CPT-66128 Level 3 Est. Patient 18:21:50 CDT Mitch luis [facility] CPT-97496 Level 3 Est. Patient 18:20:38 CDT Mitch luis [facility] CPT-10571 Level 3 Est. Patient 15:37:55 CDT Mitch luis [facility] CPT-89213 Level 2 Est. Patient 15:54:44 CDT Carmine benton MD [facility] CPT-62936 Level 3 Est. Patient 21:46:01 GEOPHYSICAL DATA TECHNICIAN Mitch luis [facility] CPT-84457 Level 3 Est. Patient 22:15:50 CDT Mitch luis [facility] CPT-70292 Level 3 Est. Patient 10:48:15 CDT Mitch luis [facility] CPT-81691 Level 3 Est. Patient 23:20:57 CDT Tavo toure MD [facility] CPT-03343 Level 3 Est. Patient 16:26:13 CDT Mitch luis [facility] Procedures Code Procedure Name Date Entry Date Standard Desc ription CPT-87267 Venipuncture Draw Fee 18:03:01 GEOPHYSICAL DATA TECHNICIAN CPT-75953 Venipuncture Draw Fee 10:44:42 GEOPHYSICAL DATA TECHNICIAN CPT-93332 Venipuncture Draw Fee 14:46:55 GEOPHYSICAL DATA TECHNICIAN CPT-55527 Venipuncture Draw Fee 08:26:21 CDT CPT-70079 Venous Duplex Left Leg XRAY USE ONLY 10:43:10 CDT CPT-82391 Venipuncture Draw Fee 17:04:55 CDT CPT-87337 Venipuncture Draw Fee 17:20:50 CDT CPT-15906 Venipuncture Draw Fee 18:00:48 CDT CPT-58860 Venipuncture Draw Fee 14:56:20 CDT CPT-JTINJ Asp/Joint Injection 18:47:02 CDT CPT-05438 Venipuncture Draw Fee 09:26:17 CDT CPT-52450 PT/INR - LAB USE ONLY 13:32:49 GEOPHYSICAL DATA TECHNICIAN CPT-28831 Venipuncture Draw Fee 13:32:49 GEOPHYSICAL DATA TECHNICIAN CPT-74212 PT/INR - LAB USE ONLY 10:34:49 GEOPHYSICAL DATA TECHNICIAN CPT-20614 Venipuncture Draw Fee 10:34:48 GEOPHYSICAL DATA TECHNICIAN CPT-35654 PT/INR - LAB USE ONLY 09:22:03 GEOPHYSICAL DATA TECHNICIAN CPT-29638 Venipuncture Draw Fee 09:22:02 GEOPHYSICAL DATA TECHNICIAN CPT-07389 Hemoccult IFOBT - LAB USE ONLY 10:27:22 CDT CPT-77188 Venipuncture Draw Fee 08:27:08 CDT CPT-69245 Liver Profile - LAB USE ONLY 08:27:07 CDT 2 CPT-61422 Microalbumin - LAB USE ONLY 08:27:07 CDT 20 25/05/09 CPT-24640 PT/INR - LAB USE ONLY 08:27:07 CDT CPT-01580 HGBA1C - LAB USE ONLY 08:27:07 CDT CPT-00394 CBC - LAB USE ONLY 08:27:07 CDT CPT-84071 Venipuncture Draw Fee 11:09:14 CDT CPT-38539 Venipuncture Draw Fee 08:32:21 GEOPHYSICAL DATA TECHNICIAN CPT-37649 Venipuncture Draw Fee 09:38:56 GEOPHYSICAL DATA TECHNICIAN CPT-71564 No Charge Offi Visit 21:36:07 CDT 1 CPT-18255 Venipuncture Draw Fee 10:13:28 GEOPHYSICAL DATA TECHNICIAN CPT-33689 Venipuncture Draw Fee 08:31:11 CDT CPT-52917 Aspir/Inject Med Joint 18:17:28 CDT CPT-90371 Venipuncture Draw Fee 10:13:30 CDT CPT-79474 Venipuncture Draw Fee 08:31:43 GEOPHYSICAL DATA TECHNICIAN CPT-JTINJ Joint Injection 18:34:50 CDT CPT-01579 Knee 3V 12:25:09 CDT CPT-24091 Venipuncture Draw Fee 12:15:57 CDT CPT-060 Medical Surveillance Exam 21:31:43 CDT 2011 CPT-95862 Venipuncture Draw Fee 08:32:05 GEOPHYSICAL DATA TECHNICIAN CPT-OV Office Visit 18:19:06 CDT
--- OUTSIDE RECORDS SUMMARY | 2020-01-18 14:08 | XMS REPORT | Clinical Summary ---
Author Author Admin, Mitch Leon Organization [facility] [employer] Address Unknown Phone Unavailable Allergies, Adverse Reactions, [...] Coronary atherosclerosis of unspecified type of vessel, [place] or graft EDEMA 782.3 Resolved Mitch Urbina [...] TAKE 1 TABLET DAILY SITAGLIPT IN PHOSPHATE 30129219050 Active Mitch Urbina DO Active INVOKANA TABS 100MG TAKE 1 TABLET DAILY CANAGLIFL OZIN 47243466225 Active Mitch Urbina DO Active AMLODIPINE BESYLATE 5 MG ORAL TABLET 1 tablet by mouth daily 201 05/19/02 AMLODIPINE BESYLATE 38850062369 No Longer Active Maria Briones Active WARFARIN TABS 1MG TAKE 2 TABLETS (2 MG) DAILY WITH THE 5 MG TABLET TO EQUAL 7 MG DAILY WARFARIN SODIUM 66132199101 Active Maria Briones Active WARFARIN SODIUM 5 MG TABS TAKE 1 TABLET DAILY W ARFARIN SODIUM 71193087245 Active Maria Rivas RN Active KEFLEX 500 MG ORAL CAPSULE 1 capsule by mouth three times da rocky x10 days CEPHALEXIN 39566365019 No Longer Active Maria landaverde RN Active METOPROLOL TARTRATE TABS 50MG TAKE 1 TABLET TWICE A DAY ([facility]) METOPROLOL TARTRATE 00733881214 Active Maria Briones Active DOXAZOSIN MESYLATE 2 MG ORAL TABLET 1 po q day for pr ostate and blood pressure DOXAZOSIN MESYLATE 39405039976 Active Mitch Urbina DO Active LOSARTAN TABS 100MG TAKE 1 TABLET DAILY FOR BLOOD PRESSURE LOSARTAN POTASSIUM 79647108060 Active Maria Rivas RN Active FLUTICASONE PROPIONATE 50 MCG/ACT NASAL SUSPENSION 1 s pray each nostril twice daily for 1 week, then once daily FLUTICASONE NC OPIONATE 54851365941 Active Becky Sell LOG CLERK Active PREDNISONE 20 MG ORAL TABLET 2 tabs daily for 3 days 1 tab d aily for 3 days PREDNISONE 71704445396 No Longer Active Becky Sell LOG CLERK Active MINOXIDIL 2.5 MG ORAL TABLET 1 tablet twice daily for high b lood pressure MINOXIDIL 91202028973 Active Mitch Urbina DO Ac tive METFORMIN HCL ER 500 MG ORAL TABLET EXTENDED RELEASE 2 4 HOUR 2 tablets by mouth twice daily METFORMIN HCL 46089977414 Active Mitch Urbina DO Active GLIMEPIRIDE 4 MG ORAL TABLET 1 tablet by mouth twice daily f or diabetes GLIMEPIRIDE 93315875513 Active Mitch Urbina DO Active GLIMEPIRIDE 2 MG ORAL TABLET 1 po BID GLIMEPI RIDE 10789331282 No Longer Active Mitch Urbina DO Active PROVIGIL 200 MG ORAL TABLET 1/2 tab po q day MODA FINIL 25641172465 Active Maria Rivas RN Active FAMOTIDINE 20 MG ORAL TABLET by mouth twice a day 2017 FAMOTIDINE 09228301159 No Longer Active Mitch Urbina DO Active COLCRYS 0.6 MG ORAL TABLET 1 tab qid prn gout C OLCHICINE 15480333142 No Longer Active Mitch Urbina DO Active KEFLEX 500 MG ORAL CAPSULE 1 po qid CEPHALEXI N 48624728269 No Longer Active Mitch Urbina DO Active AMLODIPINE BESYLATE 5 MG ORAL TABLET 1 tablet by mouth daily 201 01/20/04 AMLODIPINE BESYLATE 76068149821 No Longer Active Joe fulton APRN Active MITIGARE 0.6 MG ORAL CAPSULE 2 capsules at onset of go ut pain, then take one capsule at 1 hour if symptoms persist. COLCHICINE 59 682989424 Active Mitch Urbina DO Active MECLIZINE HCL 25 MG ORAL TABLET 1 po tid 3 days, then 1/2 ta b tid 3 days MECLIZINE HCL 94961826217 No Longer Active Corey SEGURA Active ALLOPURINOL 300 MG ORAL TABLET Take 1 tablet by mouth daily 2012 ALLOPURINOL 82724580213 No Longer Active Corey SEGURA Active CLONIDINE HCL 0.1 MG ORAL TABLET 1 po bid 7 days, then 1/2 t ab po bid 7 days CLONIDINE HCL 02744048028 No Longer Active Corey SEGURA Active COUMADIN 4 MG ORAL TABLET 1 tablet daily WARFAR IN SODIUM 64334210130 No Longer Active Corey SEGURA Active POLYTRIM 67430-9.1 UNIT/ML-% OPHTHALMIC SOLUTION 1 rui p in affected eye every 3 hours while awake x 7 days POLYMYXIN B-TRIMETHOP RIM 40033204512 No Longer Active Corey SEGURA Active LOSARTAN POTASSIUM-HCTZ 100-12.5 MG ORAL TABLET 1 by m outh daily for high blood pressure LOSARTAN POTASSIUM-HCTZ 20464567333 No Longer A ctive Mitch Urbina DO Active LISINOPRIL-HYDROCHLOROTHIAZIDE 20-12.5 MG ORAL TABLET 1 tab by m outh daily LISINOPRIL-HYDROCHLOROTHIAZIDE 39897504568 No Longer Active Mitch Urbina DO Active LISINOPRIL 20 MG ORAL TABLET 1 tab po at HS LIS INOPRIL 74152616353 No Longer Active Mitch Urbina DO Active COUMADIN 5 MG ORAL TABLET 1 by mouth every other day 2 WARFARIN SODIUM 57157509784 No Longer Active Mitch Urbina DO Active COUMADIN 6 MG ORAL TABLET 1 by mouth every other day 2 WARFARIN SODIUM 86612122005 No Longer Active Mitch Urbina DO Active SIMVASTATIN 40 MG ORAL TABLET 1 tab daily at bedtime SIMVASTATIN 14808310019 Active Maria Rivas RN Active SIMVASTATIN 20 MG ORAL TABLET 1 tab daily at bedtime 2 SIMVASTATIN 63538472956 No Longer Active Mitch Urbina DO Active LOVENOX 100 MG/ML SUBCUTANEOUS SOLUTION One injection twice a da y ENOXAPARIN SODIUM 95824067698 No Longer Active Carmine Yusuf MD Active JANUVIA 100 MG ORAL TABLET 1/2 by mouth every day 2011 SITAGLIPTIN PHOSPHATE 32883535661 No Longer Active Bijal Segal RN Acti ve METFORMIN HCL 500 MG ORAL TABLET 2 by mouth twice daily METFORMIN HCL 95499444924 No Longer Active Renee Oconnor LPN Active COLCRYS 0.6 MG ORAL TABLET 1 po q 6 hours prn gout pain COLCHICINE 99640822317 No Longer Active Camila Reese Active LISINOPRIL 5 MG ORAL TABLET 1 by mouth every day 11/17 LISINOPRIL 24294424674 No Longer Active Nguyen Perez Active KLOR-CON 20 MEQ ORAL PACKET Take one by mouth daily 20 09/10/08 POTASSIUM CHLORIDE 54866606553 No Longer Active Nguyen Perez Active FUROSEMIDE 40 MG ORAL TABLET 1 by mouth daily F UROSEMIDE 79141480276 No Longer Active Nguyen Perez Active PROVIGIL 100 MG ORAL TABLET Take one by mouth daily 20 08/20/04 MODAFINIL 10140711937 No Longer Active Mitch Urbina DO Active BACTRIM DS 800-160 MG ORAL TABLET 1 tab by mouth twice daily 201 10/19/09 TRIMETHOPRIM-SULFAMETHOXAZOLE 52041553924 No Longer Active C alberto Hays MD Active ADULT ASPIRIN LOW STRENGTH 81 MG ORAL TABLET DISINTEGR ATING 1 by mouth every daily ASPIRIN 22497579636 Active Mitch W Carlitos DO Ac tive BACTRIM DS 800-160 MG ORAL TABLET 1 tab by mouth twice daily 201 10/19/09 BACTRIM DS 800-160 MG ORAL TABLET 088993 TRIMETHOPRIM-SULFAMETHOXAZOLE Inactive PROVIGIL 100 MG ORAL TABLET Take one by mouth daily 08/20/04 PROVIGIL 100 MG ORAL TABLET 685425 MODAFINIL Inactive FUROSEMIDE 40 MG ORAL TABLET 1 by mouth daily FUROSEMIDE 40 MG ORAL TABLET 450929 FUROSEMIDE Inactive KLOR-CON 20 MEQ ORAL PACKET Take one by mouth daily 09/10/08 KLOR- CON 20 MEQ ORAL PACKET 7173693 POTASSIUM CHLORIDE Inactive LISINOPRIL 5 MG ORAL TABLET 1 by mouth every day 11/17 LISINOPRIL 5 MG ORAL TABLET 881106 LISINOPRIL Inactive COLCRYS 0.6 MG ORAL TABLET 1 po q 6 hours prn gout pain COLCRYS 0.6 MG ORAL TABLET 765724 COLCHICINE Inactive JANUVIA 100 MG ORAL TABLET 1/2 by mouth every day 2011 JANUVIA 100 MG ORAL TABLET SITAGLIPTIN PHOSPHATE Inactive SIMVASTATIN 20 MG ORAL TABLET 1 tab daily at bedtime 2 SIMVASTATIN 20 MG ORAL TABLET 104450 SIMVASTATIN Inactive COUMADIN 6 MG ORAL TABLET 1 by mouth every other day 2 COUMADIN 6 MG ORAL TABLET 225460 WARFARIN SODIUM Inactive COUMADIN 5 MG ORAL TABLET 1 by mouth every other day 2 COUMADIN 5 MG ORAL TABLET 604175 WARFARIN SODIUM Inactive LISINOPRIL 20 MG ORAL TABLET 1 tab po at HS LISINOPRIL 20 MG ORAL TABLET 326510 LISINOPRIL Inactive LISINOPRIL-HYDROCHLOROTHIAZIDE 20-12.5 MG ORAL TABLET 1 tab by m outh daily LISINOPRIL-HYDROCHLOROTHIAZIDE 20-12.5 MG ORAL TABLET 297578 LISINOPRIL-HYDROCHLOROTHIAZIDE Inactive POLYTRIM 93159-7.1 UNIT/ML-% OPHTHALMIC SOLUTION 1 rui p in affected eye every 3 hours while awake x 7 days POLYTRIM 1000 0-0.1 UNIT/ML-% OPHTHALMIC SOLUTION 677008 POLYMYXIN B-TRIMETHOPRIM Inactive COUMADIN 4 MG ORAL TABLET 1 tablet daily COUMADIN 4 MG ORAL TABLET 701426 WARFARIN SODIUM Inactive CLONIDINE HCL 0.1 MG ORAL TABLET 1 po bid 7 days, then 1/2 t ab po bid 7 days CLONIDINE HCL 0.1 MG ORAL TABLET 765010 CLONIDIN E HCL Inactive ALLOPURINOL 300 MG ORAL TABLET Take 1 tablet by mouth daily 2012 ALLOPURINOL 300 MG ORAL TABLET 291505 ALLOPURINOL I nactive MECLIZINE HCL 25 MG ORAL TABLET 1 po tid 3 days, then 1/2 ta b tid 3 days MECLIZINE HCL 25 MG ORAL TABLET 467071 MECLIZINE HCL Inactive AMLODIPINE BESYLATE 5 MG ORAL TABLET 1 tablet by mouth daily 201 01/20/04 AMLODIPINE BESYLATE 5 MG ORAL TABLET 222146 AMLODIPINE BESYLATE Inactive KEFLEX 500 MG ORAL CAPSULE 1 po qid K EFLEX 500 MG ORAL CAPSULE 062299 CEPHALEXIN Inactive COLCRYS 0.6 MG ORAL TABLET 1 tab qid prn gout COLCRYS 0.6 MG ORAL TABLET 558144 COLCHICINE Inactive FAMOTIDINE 20 MG ORAL TABLET by mouth twice a day 2017 FAMOTIDINE 20 MG ORAL TABLET 550735 FAMOTIDINE Inactive GLIMEPIRIDE 2 MG ORAL TABLET 1 po BID GLIMEPIRIDE 2 MG ORAL TABLET 277171 GLIMEPIRIDE Inactive AMLODIPINE BESYLATE 5 MG ORAL TABLET 1 tablet by mouth daily 201 05/19/02 AMLODIPINE BESYLATE 5 MG ORAL TABLET 657126 AMLODIPINE BESYLATE Inactive LOVENOX 100 MG/ML SUBCUTANEOUS SOLUTION One injection twice a da y LOVENOX 100 MG/ML SUBCUTANEOUS SOLUTION 671089 ENOXAPAR IN SODIUM Inactive PREDNISONE 20 MG ORAL TABLET 2 tabs daily for 3 days 1 tab d aily for 3 days PREDNISONE 20 MG ORAL TABLET 846046 PREDNISONE Inactive KEFLEX 500 MG ORAL CAPSULE 1 capsule by mouth three times da rocky x10 days KEFLEX 500 MG ORAL CAPSULE 754708 CEPHALEXIN I nactive Advance Directives Directive Description Start Date PERMISSION TO SHARE Immunizations Vaccine Administration Date Value Standard Geovanny cription influenza immunization (Flu Vax) has been administered 08/06 Done according to patient influenza virus vaccine, unspecified for mulation Vital Signs Date Name Value Unit Range Description blood pressure, diastolic, second observation 73 m m[Hg] BP maen blood pressure, diastolic, repeated by physician 73 [...] - Chem istry sodium, serum 138 mmol/L 387-459 0643/11/07 potassium, serum 4.5 mmol/L 3.5-5.2 chloride, serum [...] 0.70 mg/dL 0.00-1.00 sodium, serum 140 mmol/L 366-215 5611/11/01 carbon dioxide, venous blood 28.6 mmol/L 21.0-32 [...] 11 .6-14.8 platelet count 326 10^3/MM^3 10*3/mm3 090-219 4019/11/01 erythrocyte (RBC) count 5.24 10^6/MM^3 10*6/mm3 4.50-6.5 [...] mg/dL Encounters Code Encounter Date Provider Facility CPT-43761 [id number] Vst-Est Level IV 16:21:22 CDT Bru ce W [facility] CPT-76707 Level 3 Est. Patient 15:18:36 CDT Becky anderson APRN [facility] CPT-74694 [id number] Vst-Est Level IV 10:06:35 CDT Bru ce W [facility] CPT-85872 [id number] Vst-Est Level IV 10:52:00 SENIOR SERVICE AIDE Bru ce W [facility] CPT-24099 Level 3 Est. Patient 18:25:53 CDT Mitch Castellano [facility] CPT-60267 Level 3 Est. Patient 19:43:34 CDT Mitch W Nona luis [facility] CPT-58884 Level 4 Est. Patient 09:30:18 CDT Mitch luis [facility] CPT-10384 Level 3 Est. Patient 15:10:14 CDT Devonjustincarlitos kamara [facility]-62780 Level 3 Est. Patient 15:03:46 CDT Devonsonya Jason [facility]-20971 Level 3 Est. Patient 14:21:06 CDT Mitch luis [facility] CPT-06742 Level 3 Est. Patient 14:52:06 CDT Joe Jason [facility]-93087 Level 3 Est. Patient 09:34:30 SENIOR SERVICE AIDE Mitch luis [facility]-98024 Level 3 Est. Patient 09:37:15 CDT Mitch luis [facility] CPT-23156 Level 3 Est. Patient 17:01:00 SENIOR SERVICE AIDE Mitch luis [facility] CPT-91163 Level 3 Est. Patient 13:53:19 SENIOR SERVICE AIDE Mitch luis [facility] CPT-30883 Level 3 Est. Patient 19:19:37 SENIOR SERVICE AIDE Mitch luis [facility] CPT-42159 Level 3 Est. Patient 13:25:53 SENIOR SERVICE AIDE Tavo toure MD [facility] CPT-44953 Level 3 Est. Patient 18:17:28 CDT Mitch luis [facility] CPT-18663 Level 3 Est. Patient 15:22:57 CDT Mitch luis [facility] CPT-65235 Level 3 Est. Patient 18:21:50 CDT Mitch Ambrose L janelle [facility] CPT-85592 Level 3 Est. Patient 18:20:38 CDT Mitch luis [facility] CPT-38753 Level 3 Est. Patient 15:37:55 CDT Mitch luis [facility] CPT-39073 Level 2 Est. Patient 15:54:44 CDT Carmine benton MD [facility] CPT-58226 Level 3 Est. Patient 21:46:01 SENIOR SERVICE AIDE Mitch luis [facility] CPT-89282 Level 3 Est. Patient 22:15:50 CDT Mitch luis [facility] CPT-11078 Level 3 Est. Patient 10:48:15 CDT Mitch luis [facility] CPT-20307 Level 3 Est. Patient 23:20:57 CDT Tavo toure MD [facility] CPT-11762 Level 3 Est. Patient 16:26:13 CDT Mitch luis [facility] Procedures Code Procedure Name Date Entry Date Standard Desc ription CPT-63096 Venipuncture Draw Fee 11:20:39 SENIOR SERVICE AIDE CPT-19422 Venipuncture Draw Fee 18:03:01 SENIOR SERVICE AIDE CPT-94307 Venipuncture Draw Fee 10:44:42 SENIOR SERVICE AIDE CPT-90009 Venipuncture Draw Fee 14:46:55 SENIOR SERVICE AIDE CPT-87262 Venipuncture Draw Fee 08:26:21 CDT CPT-58319 Venous Duplex Left Leg XRAY USE ONLY 10:43:10 CDT CPT-37192 Venipuncture Draw Fee 17:04:55 CDT CPT-39970 Venipuncture Draw Fee 17:20:50 CDT CPT-84104 Venipuncture Draw Fee 18:00:48 CDT CPT-02790 Venipuncture Draw Fee 14:56:20 CDT CPT-JTINJ Asp/Joint Injection 18:47:02 CDT CPT-25943 Venipuncture Draw Fee 09:26:17 CDT CPT-41504 PT/INR - LAB USE ONLY 13:32:49 SENIOR SERVICE AIDE CPT-06571 Venipuncture Draw Fee 13:32:49 SENIOR SERVICE AIDE CPT-23995 PT/INR - LAB USE ONLY 10:34:49 SENIOR SERVICE AIDE CPT-69757 Venipuncture Draw Fee 10:34:48 SENIOR SERVICE AIDE CPT-79896 PT/INR - LAB USE ONLY 09:22:03 SENIOR SERVICE AIDE CPT-00195 Venipuncture Draw Fee 09:22:02 SENIOR SERVICE AIDE CPT-45648 Hemoccult IFOBT - LAB USE ONLY 10:27:22 CDT CPT-90849 Venipuncture Draw Fee 08:27:08 CDT CPT-34248 Liver Profile - LAB USE ONLY 08:27:07 CDT 2 CPT-83090 Microalbumin - LAB USE ONLY 08:27:07 CDT 20 25/05/09 CPT-10780 PT/INR - LAB USE ONLY 08:27:07 CDT CPT-65264 HGBA1C - LAB USE ONLY 08:27:07 CDT CPT-99885 CBC - LAB USE ONLY 08:27:07 CDT CPT-97179 Venipuncture Draw Fee 11:09:14 CDT CPT-79247 Venipuncture Draw Fee 08:32:21 SENIOR SERVICE AIDE CPT-70705 Venipuncture Draw Fee 09:38:56 SENIOR SERVICE AIDE CPT-21548 No Charge Offi Visit 21:36:07 CDT 1 CPT-07710 Venipuncture Draw Fee 10:13:28 SENIOR SERVICE AIDE CPT-47650 Venipuncture Draw Fee 08:31:11 CDT CPT-44426 Aspir/Inject Med Joint 18:17:28 CDT CPT-05514 Venipuncture Draw Fee 10:13:30 CDT CPT-30133 Venipuncture Draw Fee 08:31:43 SENIOR SERVICE AIDE CPT-JTINJ Joint Injection 18:34:50 CDT CPT-11210 Knee 3V 12:25:09 CDT CPT-18303 Venipuncture Draw Fee 12:15:57 CDT CPT-060 Medical Surveillance Exam 21:31:43 CDT 2011 CPT-31510 Venipuncture Draw Fee 08:32:05 SENIOR SERVICE AIDE CPT-OV Office Visit 18:19:06 CDT
--- OUTSIDE RECORDS SUMMARY | 2020-01-18 14:08 | XMS REPORT | Clinical Summary ---
Author Author Admin, Mitch Leon Organization [facility] Address Unknown Phone Unavailable Allergies, Adverse Reactions, [...] Coronary atherosclerosis of unspecified type of vessel, [place] or graft EDEMA 782.3 Resolved Mitch [...] TAKE 1 TABLET DAILY SITAGLIPT IN PHOSPHATE 55171853160 Active Mitch Urbina DO Active INVOKANA TABS 100MG TAKE 1 TABLET DAILY CANAGLIFL OZIN 58514686532 Active Mitch Urbina DO Active AMLODIPINE BESYLATE 5 MG ORAL TABLET 1 tablet by mouth daily 201 05/19/02 AMLODIPINE BESYLATE 08782711600 No Longer Active Maria Briones Active WARFARIN TABS 1MG TAKE 2 TABLETS (2 MG) DAILY WITH THE 5 MG TABLET TO EQUAL 7 MG DAILY WARFARIN SODIUM 42613381381 Active Maria Briones Active WARFARIN SODIUM 5 MG TABS TAKE 1 TABLET DAILY W ARFARIN SODIUM 98842726380 Active Maria Rivas RN Active KEFLEX 500 MG ORAL CAPSULE 1 capsule by mouth three times da rocky x10 days CEPHALEXIN 17141487758 No Longer Active Maria landaverde RN Active METOPROLOL TARTRATE TABS 50MG TAKE 1 TABLET TWICE A DAY ([facility] WORK) METOPROLOL TARTRATE 75498913731 Active Maria Briones Active DOXAZOSIN MESYLATE 2 MG ORAL TABLET 1 po q day for pr ostate and blood pressure DOXAZOSIN MESYLATE 24144727657 Active Mitch Urbina DO Active LOSARTAN TABS 100MG TAKE 1 TABLET DAILY FOR BLOOD PRESSURE LOSARTAN POTASSIUM 70787256757 Active Maria Rivas RN Active FLUTICASONE PROPIONATE 50 MCG/ACT NASAL SUSPENSION 1 s pray each nostril twice daily for 1 week, then once daily FLUTICASONE ME OPIONATE 30748056385 Active Becky Sell ADMISSIONS CLERK Active PREDNISONE 20 MG ORAL TABLET 2 tabs daily for 3 days 1 tab d aily for 3 days PREDNISONE 81775778835 No Longer Active Becky Sell ADMISSIONS CLERK Active MINOXIDIL 2.5 MG ORAL TABLET 1 tablet twice daily for high b lood pressure MINOXIDIL 39004986261 Active Mitch Urbina DO Ac tive METFORMIN HCL ER 500 MG ORAL TABLET EXTENDED RELEASE 2 4 HOUR 2 tablets by mouth twice daily METFORMIN HCL 86844362786 Active Mitch Urbina DO Active GLIMEPIRIDE 4 MG ORAL TABLET 1 tablet by mouth twice daily f or diabetes GLIMEPIRIDE 02675215847 Active Mitch Urbina DO Active GLIMEPIRIDE 2 MG ORAL TABLET 1 po BID GLIMEPI RIDE 84379311219 No Longer Active Mitch Urbina DO Active PROVIGIL 200 MG ORAL TABLET 1/2 tab po q day MODA FINIL 70454095440 Active Maria Rivas RN Active FAMOTIDINE 20 MG ORAL TABLET by mouth twice a day 2017 FAMOTIDINE 21932609250 No Longer Active Mitch Urbina DO Active COLCRYS 0.6 MG ORAL TABLET 1 tab qid prn gout C OLCHICINE 98478510137 No Longer Active Mitch Urbina DO Active KEFLEX 500 MG ORAL CAPSULE 1 po qid CEPHALEXI N 38845788405 No Longer Active Mitch Urbina DO Active AMLODIPINE BESYLATE 5 MG ORAL TABLET 1 tablet by mouth daily 201 01/20/04 AMLODIPINE BESYLATE 44388919553 No Longer Active Joe fulton APRN Active MITIGARE 0.6 MG ORAL CAPSULE 2 capsules at onset of go ut pain, then take one capsule at 1 hour if symptoms persist. COLCHICINE 59 939577754 Active Mitch Urbina DO Active MECLIZINE HCL 25 MG ORAL TABLET 1 po tid 3 days, then 1/2 ta b tid 3 days MECLIZINE HCL 01651722628 No Longer Active Corey SEGURA Active ALLOPURINOL 300 MG ORAL TABLET Take 1 tablet by mouth daily 2012 ALLOPURINOL 96133751963 No Longer Active Corey SEGURA Active CLONIDINE HCL 0.1 MG ORAL TABLET 1 po bid 7 days, then 1/2 t ab po bid 7 days CLONIDINE HCL 67309163974 No Longer Active Corey SEGURA Active COUMADIN 4 MG ORAL TABLET 1 tablet daily WARFAR IN SODIUM 39235701918 No Longer Active Corey SEGURA Active POLYTRIM 35922-9.1 UNIT/ML-% OPHTHALMIC SOLUTION 1 rui p in affected eye every 3 hours while awake x 7 days POLYMYXIN B-TRIMETHOP RIM 18116020827 No Longer Active Corey SEGURA Active LOSARTAN POTASSIUM-HCTZ 100-12.5 MG ORAL TABLET 1 by m outh daily for high blood pressure LOSARTAN POTASSIUM-HCTZ 26223164315 No Longer A ctive Mitch Urbina DO Active LISINOPRIL-HYDROCHLOROTHIAZIDE 20-12.5 MG ORAL TABLET 1 tab by m outh daily LISINOPRIL-HYDROCHLOROTHIAZIDE 58994678745 No Longer Active Mitch Urbina DO Active LISINOPRIL 20 MG ORAL TABLET 1 tab po at HS LIS INOPRIL 05409677601 No Longer Active Mitch Urbina DO Active COUMADIN 5 MG ORAL TABLET 1 by mouth every other day 2 WARFARIN SODIUM 93242535874 No Longer Active Mitch Urbina DO Active COUMADIN 6 MG ORAL TABLET 1 by mouth every other day 2 WARFARIN SODIUM 06651433257 No Longer Active Mitch Urbina DO Active SIMVASTATIN 40 MG ORAL TABLET 1 tab daily at bedtime SIMVASTATIN 09675424857 Active Maria Rivas RN Active SIMVASTATIN 20 MG ORAL TABLET 1 tab daily at bedtime 2 SIMVASTATIN 59157176544 No Longer Active Mitch Urbina DO Active LOVENOX 100 MG/ML SUBCUTANEOUS SOLUTION One injection twice a da y ENOXAPARIN SODIUM 20324227223 No Longer Active Carmine Yusuf MD Active JANUVIA 100 MG ORAL TABLET 1/2 by mouth every day 2011 SITAGLIPTIN PHOSPHATE 25388824382 No Longer Active Bijal Segal RN Acti ve METFORMIN HCL 500 MG ORAL TABLET 2 by mouth twice daily METFORMIN HCL 82244735496 No Longer Active Renee Oconnor LPN Active COLCRYS 0.6 MG ORAL TABLET 1 po q 6 hours prn gout pain COLCHICINE 85411041933 No Longer Active Camila Reese Active LISINOPRIL 5 MG ORAL TABLET 1 by mouth every day 11/17 LISINOPRIL 67731021173 No Longer Active Nguyen Perez Active KLOR-CON 20 MEQ ORAL PACKET Take one by mouth daily 20 09/10/08 POTASSIUM CHLORIDE 06777896353 No Longer Active Nguyen Perez Active FUROSEMIDE 40 MG ORAL TABLET 1 by mouth daily F UROSEMIDE 92132765261 No Longer Active Nguyen Perez Active PROVIGIL 100 MG ORAL TABLET Take one by mouth daily 20 08/20/04 MODAFINIL 18430280335 No Longer Active Mitch Urbina DO Active BACTRIM DS 800-160 MG ORAL TABLET 1 tab by mouth twice daily 201 10/19/09 TRIMETHOPRIM-SULFAMETHOXAZOLE 59854870526 No Longer Active C alberto Hays MD Active ADULT ASPIRIN LOW STRENGTH 81 MG ORAL TABLET DISINTEGR ATING 1 by mouth every daily ASPIRIN 40562025086 Active Mitch W Carlitos DO Ac tive BACTRIM DS 800-160 MG ORAL TABLET 1 tab by mouth twice daily 201 10/19/09 BACTRIM DS 800-160 MG ORAL TABLET 181366 TRIMETHOPRIM-SULFAMETHOXAZOLE Inactive PROVIGIL 100 MG ORAL TABLET Take one by mouth daily 08/20/04 PROVIGIL 100 MG ORAL TABLET 736567 MODAFINIL Inactive FUROSEMIDE 40 MG ORAL TABLET 1 by mouth daily FUROSEMIDE 40 MG ORAL TABLET 754259 FUROSEMIDE Inactive KLOR-CON 20 MEQ ORAL PACKET Take one by mouth daily 09/10/08 KLOR- CON 20 MEQ ORAL PACKET 6579870 POTASSIUM CHLORIDE Inactive LISINOPRIL 5 MG ORAL TABLET 1 by mouth every day 11/17 LISINOPRIL 5 MG ORAL TABLET 608110 LISINOPRIL Inactive COLCRYS 0.6 MG ORAL TABLET 1 po q 6 hours prn gout pain COLCRYS 0.6 MG ORAL TABLET 996099 COLCHICINE Inactive JANUVIA 100 MG ORAL TABLET 1/2 by mouth every day 2011 JANUVIA 100 MG ORAL TABLET SITAGLIPTIN PHOSPHATE Inactive SIMVASTATIN 20 MG ORAL TABLET 1 tab daily at bedtime 2 SIMVASTATIN 20 MG ORAL TABLET 855141 SIMVASTATIN Inactive COUMADIN 6 MG ORAL TABLET 1 by mouth every other day 2 COUMADIN 6 MG ORAL TABLET 385386 WARFARIN SODIUM Inactive COUMADIN 5 MG ORAL TABLET 1 by mouth every other day 2 COUMADIN 5 MG ORAL TABLET 991890 WARFARIN SODIUM Inactive LISINOPRIL 20 MG ORAL TABLET 1 tab po at HS LISINOPRIL 20 MG ORAL TABLET 513693 LISINOPRIL Inactive LISINOPRIL-HYDROCHLOROTHIAZIDE 20-12.5 MG ORAL TABLET 1 tab by m outh daily LISINOPRIL-HYDROCHLOROTHIAZIDE 20-12.5 MG ORAL TABLET 320135 LISINOPRIL-HYDROCHLOROTHIAZIDE Inactive POLYTRIM 81542-1.1 UNIT/ML-% OPHTHALMIC SOLUTION 1 rui p in affected eye every 3 hours while awake x 7 days POLYTRIM 1000 0-0.1 UNIT/ML-% OPHTHALMIC SOLUTION 513454 POLYMYXIN B-TRIMETHOPRIM Inactive COUMADIN 4 MG ORAL TABLET 1 tablet daily COUMADIN 4 MG ORAL TABLET 289921 WARFARIN SODIUM Inactive CLONIDINE HCL 0.1 MG ORAL TABLET 1 po bid 7 days, then 1/2 t ab po bid 7 days CLONIDINE HCL 0.1 MG ORAL TABLET 689561 CLONIDIN E HCL Inactive ALLOPURINOL 300 MG ORAL TABLET Take 1 tablet by mouth daily 2012 ALLOPURINOL 300 MG ORAL TABLET 263543 ALLOPURINOL I nactive MECLIZINE HCL 25 MG ORAL TABLET 1 po tid 3 days, then 1/2 ta b tid 3 days MECLIZINE HCL 25 MG ORAL TABLET 734127 MECLIZINE HCL Inactive AMLODIPINE BESYLATE 5 MG ORAL TABLET 1 tablet by mouth daily 201 01/20/04 AMLODIPINE BESYLATE 5 MG ORAL TABLET 792943 AMLODIPINE BESYLATE Inactive KEFLEX 500 MG ORAL CAPSULE 1 po qid K EFLEX 500 MG ORAL CAPSULE 661253 CEPHALEXIN Inactive COLCRYS 0.6 MG ORAL TABLET 1 tab qid prn gout COLCRYS 0.6 MG ORAL TABLET 991920 COLCHICINE Inactive FAMOTIDINE 20 MG ORAL TABLET by mouth twice a day 2017 FAMOTIDINE 20 MG ORAL TABLET 125237 FAMOTIDINE Inactive GLIMEPIRIDE 2 MG ORAL TABLET 1 po BID GLIMEPIRIDE 2 MG ORAL TABLET 783742 GLIMEPIRIDE Inactive AMLODIPINE BESYLATE 5 MG ORAL TABLET 1 tablet by mouth daily 201 05/19/02 AMLODIPINE BESYLATE 5 MG ORAL TABLET 446299 AMLODIPINE BESYLATE Inactive LOVENOX 100 MG/ML SUBCUTANEOUS SOLUTION One injection twice a da y LOVENOX 100 MG/ML SUBCUTANEOUS SOLUTION 760474 ENOXAPAR IN SODIUM Inactive PREDNISONE 20 MG ORAL TABLET 2 tabs daily for 3 days 1 tab d aily for 3 days PREDNISONE 20 MG ORAL TABLET 502395 PREDNISONE Inactive KEFLEX 500 MG ORAL CAPSULE 1 capsule by mouth three times da rocky x10 days KEFLEX 500 MG ORAL CAPSULE 073301 CEPHALEXIN I nactive Advance Directives Directive Description [...] - Chem istry sodium, serum 138 mmol/L 737-316 9077/11/07 potassium, serum 4.5 mmol/L 3.5-5.2 chloride, serum [...] Panel - Chemistry sodium, serum 140 mmol/L 636-600 5275/11/01 carbon dioxide, venous blood 28.6 mmol/L 21.0-32 [...] mg/dL Encounters Code Encounter Date Provider Facility CPT-32321 [id number] Vst-Est Level IV 16:21:22 CDT Bru ce W [facility] CPT-17516 Level 3 Est. Patient 15:18:36 CDT Becky anderson APRN [facility] CPT-64648 [id number] Vst-Est Level IV 10:06:35 CDT Bru ce W [facility] CPT-08586 [id number] Vst-Est Level IV 10:52:00 VOCATIONAL TECHNICAL EDUCATION DIRECTOR Bru ce W [facility] CPT-56862 Level 3 Est. Patient 18:25:53 CDT Mitch Castellano [facility] CPT-36062 Level 3 Est. Patient 19:43:34 CDT Mitch W Nona luis [facility] CPT-23656 Level 4 Est. Patient 09:30:18 CDT Mitch luis [facility] CPT-56093 Level 3 Est. Patient 15:10:14 CDT Devonjustincarlitos kamara [facility]-27226 Level 3 Est. Patient 15:03:46 CDT Devonsonya Jason [facility]-85488 Level 3 Est. Patient 14:21:06 CDT Mitch luis [facility] CPT-25984 Level 3 Est. Patient 14:52:06 CDT Joe Jason [facility]-36974 Level 3 Est. Patient 09:34:30 VOCATIONAL TECHNICAL EDUCATION DIRECTOR Mitch luis [facility]-81596 Level 3 Est. Patient 09:37:15 CDT Mitch luis [facility] CPT-66775 Level 3 Est. Patient 17:01:00 VOCATIONAL TECHNICAL EDUCATION DIRECTOR Mitch luis [facility] CPT-37742 Level 3 Est. Patient 13:53:19 VOCATIONAL TECHNICAL EDUCATION DIRECTOR Mitch luis [facility] CPT-71537 Level 3 Est. Patient 19:19:37 VOCATIONAL TECHNICAL EDUCATION DIRECTOR Mitch luis [facility] CPT-54074 Level 3 Est. Patient 13:25:53 VOCATIONAL TECHNICAL EDUCATION DIRECTOR Tavo toure MD [facility] CPT-42570 Level 3 Est. Patient 18:17:28 CDT Mitch luis [facility] CPT-00239 Level 3 Est. Patient 15:22:57 CDT Mitch luis [facility] CPT-61265 Level 3 Est. Patient 18:21:50 CDT Mitch Ambrose L janelle [facility] CPT-86843 Level 3 Est. Patient 18:20:38 CDT Mitch luis [facility] CPT-07860 Level 3 Est. Patient 15:37:55 CDT Mitch luis [facility] CPT-33399 Level 2 Est. Patient 15:54:44 CDT Carmine benton MD [facility] CPT-03747 Level 3 Est. Patient 21:46:01 VOCATIONAL TECHNICAL EDUCATION DIRECTOR Mitch luis [facility] CPT-37511 Level 3 Est. Patient 22:15:50 CDT Mitch luis [facility] CPT-18759 Level 3 Est. Patient 10:48:15 CDT Mitch luis [facility] CPT-06737 Level 3 Est. Patient 23:20:57 CDT Tavo toure MD [facility] CPT-87812 Level 3 Est. Patient 16:26:13 CDT Mitch luis [facility] Procedures Code Procedure Name Date Entry Date Standard Desc ription CPT-93064 Venipuncture Draw Fee 11:20:39 VOCATIONAL TECHNICAL EDUCATION DIRECTOR CPT-14795 Venipuncture Draw Fee 18:03:01 VOCATIONAL TECHNICAL EDUCATION DIRECTOR CPT-88148 Venipuncture Draw Fee 10:44:42 VOCATIONAL TECHNICAL EDUCATION DIRECTOR CPT-07869 Venipuncture Draw Fee 14:46:55 VOCATIONAL TECHNICAL EDUCATION DIRECTOR CPT-83881 Venipuncture Draw Fee 08:26:21 CDT CPT-30729 Venous Duplex Left Leg XRAY USE ONLY 10:43:10 CDT CPT-86239 Venipuncture Draw Fee 17:04:55 CDT CPT-49981 Venipuncture Draw Fee 17:20:50 CDT CPT-89967 Venipuncture Draw Fee 18:00:48 CDT CPT-97940 Venipuncture Draw Fee 14:56:20 CDT CPT-JTINJ Asp/Joint Injection 18:47:02 CDT CPT-48850 Venipuncture Draw Fee 09:26:17 CDT CPT-65278 PT/INR - LAB USE ONLY 13:32:49 VOCATIONAL TECHNICAL EDUCATION DIRECTOR CPT-35947 Venipuncture Draw Fee 13:32:49 VOCATIONAL TECHNICAL EDUCATION DIRECTOR CPT-93320 PT/INR - LAB USE ONLY 10:34:49 VOCATIONAL TECHNICAL EDUCATION DIRECTOR CPT-53176 Venipuncture Draw Fee 10:34:48 VOCATIONAL TECHNICAL EDUCATION DIRECTOR CPT-15572 PT/INR - LAB USE ONLY 09:22:03 VOCATIONAL TECHNICAL EDUCATION DIRECTOR CPT-93946 Venipuncture Draw Fee 09:22:02 VOCATIONAL TECHNICAL EDUCATION DIRECTOR CPT-01297 Hemoccult IFOBT - LAB USE ONLY 10:27:22 CDT CPT-62961 Venipuncture Draw Fee 08:27:08 CDT CPT-71696 Liver Profile - LAB USE ONLY 08:27:07 CDT 2 CPT-65434 Microalbumin - LAB USE ONLY 08:27:07 CDT 20 25/05/09 CPT-18947 PT/INR - LAB USE ONLY 08:27:07 CDT CPT-08851 HGBA1C - LAB USE ONLY 08:27:07 CDT CPT-18251 CBC - LAB USE ONLY 08:27:07 CDT CPT-79547 Venipuncture Draw Fee 11:09:14 CDT CPT-19228 Venipuncture Draw Fee 08:32:21 VOCATIONAL TECHNICAL EDUCATION DIRECTOR CPT-24882 Venipuncture Draw Fee 09:38:56 VOCATIONAL TECHNICAL EDUCATION DIRECTOR CPT-47514 No Charge Offi Visit 21:36:07 CDT 1 CPT-57473 Venipuncture Draw Fee 10:13:28 VOCATIONAL TECHNICAL EDUCATION DIRECTOR CPT-21412 Venipuncture Draw Fee 08:31:11 CDT CPT-63441 Aspir/Inject Med Joint 18:17:28 CDT CPT-34752 Venipuncture Draw Fee 10:13:30 CDT CPT-80390 Venipuncture Draw Fee 08:31:43 VOCATIONAL TECHNICAL EDUCATION DIRECTOR CPT-JTINJ Joint Injection 18:34:50 CDT CPT-61469 Knee 3V 12:25:09 CDT CPT-24510 Venipuncture Draw Fee 12:15:57 CDT CPT-060 Medical Surveillance Exam 21:31:43 CDT 2011 CPT-89196 Venipuncture Draw Fee 08:32:05 VOCATIONAL TECHNICAL EDUCATION DIRECTOR CPT-OV Office Visit 18:19:06 CDT
--- OUTSIDE RECORDS SUMMARY | 2020-01-18 14:09 | XMS REPORT | Clinical Summary ---
[...] Coronary atherosclerosis of unspecified type of vessel, southern ute or graft EDEMA 782.3 Resolved Mitch Urbina [...] lower leg Body Mass Index 32.0-32.9 Adult Refinement 2017 Mitch Urbina DO Body Mass Index 32.0-32.9, adult BMI 33-33.9 Active Mitch Urbina DO Body Mass Index 32.0-32.9, adult Obesity Class I (BMI 30-34.9) Active Mitch Urbina DO Obesity, unspecified Bronchitis, allergic 493.90 Active Becky Sell A PRN Asthma, unspecified Influenza Vaccination for Prophylaxis V04.81 Inactive Mitch Urbina DO Need for prophylactic vaccin ation and inoculation against influenza Hypercalcemia 275.42 Active Adrianna Isidro MA Hypercalcemia Abnormal nuclear stress test 794.39 Inactive Mithc Urbina DO Other nonspecific abnormal function stud y of cardiovascular system Long-term (current) use of anticoagulants Activ e Mitch Urbina DO Long-term (current) use of anticoagulant s Acute osteomyelitis of left foot Active 01/13 Mitch Urbina DO Diabetes mellitus, type II, controlled w/ vascular complicat ions 250.70 Active Mitch Urbina DO Diabetes jorge itus with peripheral circulatory disorders, type II or unspecified type, not stated as uncontrolled Ventricular ectopy, asymptomatic 427.69 Active 202 Mitch Urbina DO Other premature beats Preoperative examination V72.84 Active Mitch luis DO Preoperative examination, unspecified SEROMA ICD-998.13 Inactive Mitch Urbina DO [...] Bhumi Robles Abnormal nuclear stress test ICD-794.39 Inactiv ponce Isidro MA CELLULITIS, GROIN, LEFT ICD-682.2 Inactive Zoya Urbina DO Medication List Medication Instructions Start Date Stop Date Generic Name NDC Status Provider Patient Instruction MITIGARE 0.6 MG ORAL CAPSULE 2 capsules at onset of go ut pain, then take one capsule at 1 hour if symptoms persist. COLCHICIN E 32887200332 No Longer Active iMtch Urbina DO Active MINOXIDIL TABS 2.5MG TAKE 1 TABLET TWICE A DAY FOR HIGH BLOO D PRESSURE MINOXIDIL 60183942332 Active Mitch Urbina DO Ac tive JANUVIA TABS 50MG TAKE 1 TABLET DAILY SITAGLIPT IN PHOSPHATE 62135161254 Active Mitch Urbina DO Active INVOKANA TABS 100MG TAKE 1 TABLET DAILY CANAGLIFL OZIN 07613945968 Active Mitch Urbina DO Active AMLODIPINE BESYLATE 5 MG ORAL TABLET 1 tablet by mouth daily 201 05/19/02 AMLODIPINE BESYLATE 50955331265 No Longer Active Maria Briones Active WARFARIN TABS 1MG TAKE 2 TABLETS (2 MG) DAILY WITH THE 5 MG TABLET TO EQUAL 7 MG DAILY WARFARIN SODIUM 66512430611 Active Maria Briones Active WARFARIN SODIUM 5 MG TABS TAKE 1 TABLET DAILY W ARFARIN SODIUM 19231061516 Active Maria Rivas RN Active KEFLEX 500 MG ORAL CAPSULE 1 capsule by mouth three times da rocky x10 days CEPHALEXIN 25623231719 No Longer Active Maria landaverde RN Active METOPROLOL TARTRATE TABS 50MG TAKE 1 TABLET TWICE A DAY ([facility]) METOPROLOL TARTRATE 10145759896 Active Maria Briones Active DOXAZOSIN MESYLATE 2 MG ORAL TABLET 1 po q day for pr ostate and blood pressure DOXAZOSIN MESYLATE 31652056691 Active Mitch Urbina Active LOSARTAN TABS 100MG TAKE 1 TABLET DAILY FOR BLOOD PRESSURE LOSARTAN POTASSIUM 40643044762 Active Maria Rivas RN Active FLUTICASONE PROPIONATE 50 MCG/ACT NASAL SUSPENSION 1 s pray each nostril twice daily for 1 week, then once daily FLUTICASONE MI OPIONATE 37589119574 Active Becky Cade INSTRUCTIONAL SUPERVISOR Active PREDNISONE 20 MG ORAL TABLET 2 tabs daily for 3 days 1 tab d aily for 3 days PREDNISONE 97619569389 No Longer Active Becky Sell INSTRUCTIONAL SUPERVISOR Active METFORMIN HCL ER 500 MG ORAL TABLET EXTENDED RELEASE 2 4 HOUR 2 tablets by mouth twice daily METFORMIN HCL 05267982232 Active Mitch Urbina DO Active GLIMEPIRIDE 4 MG ORAL TABLET 1 tablet by mouth twice daily f or diabetes GLIMEPIRIDE 63928780820 Active Mitch Urbina DO Active GLIMEPIRIDE 2 MG ORAL TABLET 1 po BID GLIMEPI RIDE 62006654463 No Longer Active Mitch Urbina DO Active PROVIGIL 200 MG ORAL TABLET 1/2 tab po q day MODA FINIL 78653280522 Active Maria Rivas RN Active FAMOTIDINE 20 MG ORAL TABLET by mouth twice a day 2017 FAMOTIDINE 27115984083 No Longer Active Mitch Urbina DO Active COLCRYS 0.6 MG ORAL TABLET 1 tab qid prn gout C OLCHICINE 99685062696 No Longer Active Mitch Urbina DO Active KEFLEX 500 MG ORAL CAPSULE 1 po qid CEPHALEXI N 03747353039 No Longer Active Mitch Urbina DO Active AMLODIPINE BESYLATE 5 MG ORAL TABLET 1 tablet by mouth daily 201 01/20/04 AMLODIPINE BESYLATE 51387117913 No Longer Active Joe fulton APRN Active MECLIZINE HCL 25 MG ORAL TABLET 1 po tid 3 days, then 1/2 ta b tid 3 days MECLIZINE HCL 77673096940 No Longer Active Corey SEGURA Active ALLOPURINOL 300 MG ORAL TABLET Take 1 tablet by mouth daily 2012 ALLOPURINOL 39656917629 No Longer Active Corey SEGURA Active CLONIDINE HCL 0.1 MG ORAL TABLET 1 po bid 7 days, then 1/2 t ab po bid 7 days CLONIDINE HCL 22266489887 No Longer Active Corey SEGURA Active COUMADIN 4 MG ORAL TABLET 1 tablet daily WARFAR IN SODIUM 59338286402 No Longer Active Corey SEGURA Active POLYTRIM 08744-1.1 UNIT/ML-% OPHTHALMIC SOLUTION 1 rui p in affected eye every 3 hours while awake x 7 days POLYMYXIN B-TRIMETHOP RIM 36057428895 No Longer Active Corey SEGURA Active LOSARTAN POTASSIUM-HCTZ 100-12.5 MG ORAL TABLET 1 by m outh daily for high blood pressure LOSARTAN POTASSIUM-HCTZ 87636003629 No Longer A ctive Mitch Urbina DO Active LISINOPRIL-HYDROCHLOROTHIAZIDE 20-12.5 MG ORAL TABLET 1 tab by m outh daily LISINOPRIL-HYDROCHLOROTHIAZIDE 13932956770 No Longer Active Mitch Urbina DO Active LISINOPRIL 20 MG ORAL TABLET 1 tab po at HS LIS INOPRIL 47274508215 No Longer Active Mitch Urbina DO Active COUMADIN 5 MG ORAL TABLET 1 by mouth every other day 2 WARFARIN SODIUM 39595238016 No Longer Active Mitch Urbina DO Active COUMADIN 6 MG ORAL TABLET 1 by mouth every other day 2 WARFARIN SODIUM 06287074414 No Longer Active Mitch Urbina DO Active SIMVASTATIN 40 MG ORAL TABLET 1 tab daily at bedtime SIMVASTATIN 09039516922 Active Maria Rivas RN Active SIMVASTATIN 20 MG ORAL TABLET 1 tab daily at bedtime 2 SIMVASTATIN 21450559035 No Longer Active Mitch Urbina DO Active LOVENOX 100 MG/ML SUBCUTANEOUS SOLUTION One injection twice a da y ENOXAPARIN SODIUM 29563081559 No Longer Active Carmine Yusuf MD Active JANUVIA 100 MG ORAL TABLET 1/2 by mouth every day 2011 SITAGLIPTIN PHOSPHATE 56297961559 No Longer Active Bijal Segal RN Acti ve METFORMIN HCL 500 MG ORAL TABLET 2 by mouth twice daily METFORMIN HCL 71395007853 No Longer Active Renee Oconnor LPN Active COLCRYS 0.6 MG ORAL TABLET 1 po q 6 hours prn gout pain COLCHICINE 18269039050 No Longer Active Camila eRese Active LISINOPRIL 5 MG ORAL TABLET 1 by mouth every day 11/17 LISINOPRIL 03838192927 No Longer Active Nguyen Perez Active KLOR-CON 20 MEQ ORAL PACKET Take one by mouth daily 09/10/08 POTASSIUM CHLORIDE 63687303872 No Longer Active Nguyen Perez Active FUROSEMIDE 40 MG ORAL TABLET 1 by mouth daily F UROSEMIDE 05083937687 No Longer Active Nguyen Perez Active PROVIGIL 100 MG ORAL TABLET Take one by mouth daily 08/20/04 MODAFINIL 93037383510 No Longer Active Mitch Urbina DO Active BACTRIM DS 800-160 MG ORAL TABLET 1 tab by mouth twice daily 201 10/19/09 TRIMETHOPRIM-SULFAMETHOXAZOLE 75666842999 No Longer Active Elian Hays MD Active ADULT ASPIRIN LOW STRENGTH 81 MG ORAL TABLET DISINTEGR ATING 1 by mouth every daily ASPIRIN 11567073272 Active Mitch Urbina DO Ac tive BACTRIM DS 800-160 MG ORAL TABLET 1 tab by mouth twice daily 201 10/19/09 BACTRIM DS 800-160 MG ORAL TABLET 732010 TRIMETHOPRIM-SULFAMETHOXAZOLE Inactive PROVIGIL 100 MG ORAL TABLET Take one by mouth daily 20 08/20/04 PROVIGIL 100 MG ORAL TABLET 270504 MODAFINIL Inactive FUROSEMIDE 40 MG ORAL TABLET 1 by mouth daily FUROSEMIDE 40 MG ORAL TABLET 591016 FUROSEMIDE Inactive KLOR-CON 20 MEQ ORAL PACKET Take one by mouth daily 09/10/08 KLOR- CON 20 MEQ ORAL PACKET 3981365 POTASSIUM CHLORIDE Inactive LISINOPRIL 5 MG ORAL TABLET 1 by mouth every day 11/17 LISINOPRIL 5 MG ORAL TABLET 396329 LISINOPRIL Inactive COLCRYS 0.6 MG ORAL TABLET 1 po q 6 hours prn gout pain COLCRYS 0.6 MG ORAL TABLET 685614 COLCHICINE Inactive JANUVIA 100 MG ORAL TABLET 1/2 by mouth every day 2011 JANUVIA 100 MG ORAL TABLET SITAGLIPTIN PHOSPHATE Inactive SIMVASTATIN 20 MG ORAL TABLET 1 tab daily at bedtime 2 SIMVASTATIN 20 MG ORAL TABLET 966280 SIMVASTATIN Inactive COUMADIN 6 MG ORAL TABLET 1 by mouth every other day 2 COUMADIN 6 MG ORAL TABLET 199259 WARFARIN SODIUM Inactive COUMADIN 5 MG ORAL TABLET 1 by mouth every other day 2 COUMADIN 5 MG ORAL TABLET 624945 WARFARIN SODIUM Inactive LISINOPRIL 20 MG ORAL TABLET 1 tab po at HS LISINOPRIL 20 MG ORAL TABLET 879884 LISINOPRIL Inactive LISINOPRIL-HYDROCHLOROTHIAZIDE 20-12.5 MG ORAL TABLET 1 tab by m outh daily LISINOPRIL-HYDROCHLOROTHIAZIDE 20-12.5 MG ORAL TABLET 400128 LISINOPRIL-HYDROCHLOROTHIAZIDE Inactive POLYTRIM 06659-4.1 UNIT/ML-% OPHTHALMIC SOLUTION 1 rui p in affected eye every 3 hours while awake x 7 days POLYTRIM 1000 0-0.1 UNIT/ML-% OPHTHALMIC SOLUTION 225796 POLYMYXIN B-TRIMETHOPRIM Inactive COUMADIN 4 MG ORAL TABLET 1 tablet daily COUMADIN 4 MG ORAL TABLET 967401 WARFARIN SODIUM Inactive CLONIDINE HCL 0.1 MG ORAL TABLET 1 po bid 7 days, then 1/2 t ab po bid 7 days CLONIDINE HCL 0.1 MG ORAL TABLET 180701 CLONIDIN E HCL Inactive ALLOPURINOL 300 MG ORAL TABLET Take 1 tablet by mouth daily 2012 ALLOPURINOL 300 MG ORAL TABLET 282437 ALLOPURINOL I nactive MECLIZINE HCL 25 MG ORAL TABLET 1 po tid 3 days, then 1/2 ta b tid 3 days MECLIZINE HCL 25 MG ORAL TABLET 516531 MECLIZINE HCL Inactive AMLODIPINE BESYLATE 5 MG ORAL TABLET 1 tablet by mouth daily 201 01/20/04 AMLODIPINE BESYLATE 5 MG ORAL TABLET 616723 AMLODIPINE BESYLATE Inactive KEFLEX 500 MG ORAL CAPSULE 1 po qid K EFLEX 500 MG ORAL CAPSULE 687592 CEPHALEXIN Inactive COLCRYS 0.6 MG ORAL TABLET 1 tab qid prn gout COLCRYS 0.6 MG ORAL TABLET 736145 COLCHICINE Inactive FAMOTIDINE 20 MG ORAL TABLET by mouth twice a day 2017 FAMOTIDINE 20 MG ORAL TABLET 080153 FAMOTIDINE Inactive GLIMEPIRIDE 2 MG ORAL TABLET 1 po BID GLIMEPIRIDE 2 MG ORAL TABLET 048417 GLIMEPIRIDE Inactive AMLODIPINE BESYLATE 5 MG ORAL TABLET 1 tablet by mouth daily 201 05/19/02 AMLODIPINE BESYLATE 5 MG ORAL TABLET 146707 AMLODIPINE BESYLATE Inactive MITIGARE 0.6 MG ORAL CAPSULE 2 capsules at onset of go ut pain, then take one capsule at 1 hour if symptoms persist. M ITIGARE 0.6 MG ORAL CAPSULE 9608447 COLCHICINE Inactive LOVENOX 100 MG/ML SUBCUTANEOUS SOLUTION One injection twice a da y LOVENOX 100 MG/ML SUBCUTANEOUS SOLUTION 998032 ENOXAPAR IN SODIUM Inactive PREDNISONE 20 MG ORAL TABLET 2 tabs daily for 3 days 1 tab d aily for 3 days PREDNISONE 20 MG ORAL TABLET 541903 PREDNISONE Inactive KEFLEX 500 MG ORAL CAPSULE 1 capsule by mouth three times da rocky x10 days KEFLEX 500 MG ORAL CAPSULE 314935 CEPHALEXIN I nactive Advance Directives Directive Description Start Date PERMISSION TO SHARE Immunizations Vaccine Administration Date Value Standard Geovanny cription influenza immunization (Flu Vax) has been administered 08/06 Done according to patient influenza virus vaccine, unspecified for mulation Vital Signs Date Name Value Unit Range Description blood pressure, diastolic, repeated by physician 67 BP mane blood pressure, diastolic 67 mm[Hg] BP mane blood pressure, systolic, repeated by physician 132 BP sys blood pressure, systolic 132 mm[Hg] BP sys pulse rate E&M 66 /min Heart rate temperature E&M 98.1 [degF] Body temp erature weight E&M 231 [lb_av] Weight Measure d blood pressure, diastolic, second observation 73 m [...] - Chem istry sodium, serum 138 mmol/L 611-805 5215/11/07 potassium, serum 4.5 mmol/L 3.5-5.2 chloride, serum [...] 0.70 mg/dL 0.00-1.00 sodium, serum 140 mmol/L 299-395 7454/11/01 carbon dioxide, venous blood 28.6 mmol/L 21.0-32 [...] Panel - Lab Alkaline phosphatase 49 50-136 Encounters Code Encounter Date Provider Facility CPT-82292 [id number] Vst-Est Level IV 11:57:44 CDT Bru ce [facility]-70063 78831-Ifp Vst-Est Level IV 16:21:22 CDT Bru ce W [facility] CPT-70145 Level 3 Est. Patient 15:18:36 CDT Becky anderson [facility]-41692 [id number] Vst-Est Level IV 10:06:35 CDT Bru ce [facility]-02840 54872-Clw Vst-Est Level IV 10:52:00 WREATH INSPECTOR Bru ce W [facility] CPT-03213 Level 3 Est. Patient 18:25:53 CDT Mitch luis [facility] CPT-59507 Level 3 Est. Patient 19:43:34 CDT Mitch luis [facility] CPT-18923 Level 4 Est. Patient 09:30:18 CDT Mitch luis [facility] CPT-50631 Level 3 Est. Patient 15:10:14 CDT Joe kamara [facility]-44788 Level 3 Est. Patient 15:03:46 CDT Joe kamara [facility] CPT-81365 Level 3 Est. Patient 14:21:06 CDT Mitch Ambrose L ee [facility]-38915 Level 3 Est. Patient 14:52:06 CDT Joe kamara [facility]-65241 Level 3 Est. Patient 09:34:30 WREATH INSPECTOR Mitch W L ee [facility]-04243 Level 3 Est. Patient 09:37:15 CDT Mitch W L ee [facility]-37643 Level 3 Est. Patient 17:01:00 WREATH INSPECTOR Mitch W L ee [facility] CPT-16854 Level 3 Est. Patient 13:53:19 WREATH INSPECTOR Mitch W L ee [facility] CPT-03149 Level 3 Est. Patient 19:19:37 WREATH INSPECTOR Mitch W L ee [facility] CPT-13882 Level 3 Est. Patient 13:25:53 WREATH INSPECTOR Tavo toure MD [facility]-76433 Level 3 Est. Patient 18:17:28 CDT Mitch W L ee [facility] CPT-08190 Level 3 Est. Patient 15:22:57 CDT Mitch W L ee [facility]-24413 Level 3 Est. Patient 18:21:50 CDT Mitch W L ee [facility]-03210 Level 3 Est. Patient 18:20:38 CDT Mitch W L ee [facility] CPT-51087 Level 3 Est. Patient 15:37:55 CDT Mitch W L ee [facility] CPT-84900 Level 2 Est. Patient 15:54:44 CDT Carmine benton MD [facility]-09194 Level 3 Est. Patient 21:46:01 WREATH INSPECTOR Mitch W L ee [facility] CPT-26847 Level 3 Est. Patient 22:15:50 CDT Mitch luis [facility] CPT-92070 Level 3 Est. Patient 10:48:15 CDT Mitch luis [facility] CPT-76619 Level 3 Est. Patient 23:20:57 CDT Tavo toure MD [facility] CPT-42489 Level 3 Est. 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 documented 11:50:34 CDT CPT-93413 Venipuncture Draw Fee 11:20:39 WREATH INSPECTOR CPT-76068 Venipuncture Draw Fee 18:03:01 WREATH INSPECTOR CPT-00739 Venipuncture Draw Fee 10:44:42 WREATH INSPECTOR CPT-04153 Venipuncture Draw Fee 14:46:55 WREATH INSPECTOR CPT-81647 Venipuncture Draw Fee 08:26:21 CDT CPT-17940 Venous Duplex Left Leg XRAY USE ONLY 10:43:10 CDT CPT-90506 Venipuncture Draw Fee 17:04:55 CDT CPT-80529 Venipuncture Draw Fee 17:20:50 CDT CPT-69855 Venipuncture Draw Fee 18:00:48 CDT CPT-39513 Venipuncture Draw Fee 14:56:20 CDT CPT-JTINJ Asp/Joint Injection 18:47:02 CDT CPT-81132 Venipuncture Draw Fee 09:26:17 CDT CPT-52424 PT/INR - LAB USE ONLY 13:32:49 WREATH INSPECTOR CPT-08955 Venipuncture Draw Fee 13:32:49 WREATH INSPECTOR CPT-98153 PT/INR - LAB USE ONLY 10:34:49 WREATH INSPECTOR CPT-82168 Venipuncture Draw Fee 10:34:48 WREATH INSPECTOR CPT-23035 PT/INR - LAB USE ONLY 09:22:03 WREATH INSPECTOR CPT-44676 Venipuncture Draw Fee 09:22:02 WREATH INSPECTOR CPT-44752 Hemoccult IFOBT - LAB USE ONLY 10:27:22 CDT CPT-97512 Venipuncture Draw Fee 08:27:08 CDT CPT-58349 Liver Profile - LAB USE ONLY 08:27:07 CDT 2 CPT-59633 Microalbumin - LAB USE ONLY 08:27:07 CDT 20 25/05/09 CPT-45927 PT/INR - LAB USE ONLY 08:27:07 CDT CPT-95415 HGBA1C - LAB USE ONLY 08:27:07 CDT CPT-73927 CBC - LAB USE ONLY 08:27:07 CDT CPT-70678 Venipuncture Draw Fee 11:09:14 CDT CPT-97276 Venipuncture Draw Fee 08:32:21 WREATH INSPECTOR CPT-51365 Venipuncture Draw Fee 09:38:56 WREATH INSPECTOR CPT-83244 No Charge Offi Visit 21:36:07 CDT 1 CPT-40124 Venipuncture Draw Fee 10:13:28 WREATH INSPECTOR CPT-16971 Venipuncture Draw Fee 08:31:11 CDT CPT-62253 Aspir/Inject Med Joint 18:17:28 CDT CPT-99732 Venipuncture Draw Fee 10:13:30 CDT CPT-51221 Venipuncture Draw Fee 08:31:43 WREATH INSPECTOR CPT-JTINJ Joint Injection 18:34:50 CDT CPT-11406 Knee 3V 12:25:09 CDT CPT-62858 Venipuncture Draw Fee 12:15:57 CDT CPT-060 Medical Surveillance Exam 21:31:43 CDT 2011 CPT-67805 Venipuncture Draw Fee 08:32:05 WREATH INSPECTOR CPT-OV Office Visit 18:19:06 CDT
--- OUTSIDE RECORDS SUMMARY | 2020-01-18 14:09 | XMS REPORT | Continuity of Care Document ---
Author Author [facility] Organization [facility] Address [address] [place] [address] Phone Unavailable Care Team Providers Care Developer Relations Manager Name Role Phone DO MITCH MELÉNDEZ PCP [...] KNEE, 30-50 MM August 13, 2019 completed LULU SUBQ TISSUE 20 SQ CM/< September 10, 2019 completed LULU SUBQ TISSUE 20 SQ CM/< September 10, 2019 completed LULU SUBQ TISSUE 20 SQ CM/< September 10, 2019 completed LULU SUBQ TISSUE 20 SQ CM/< September 10, 2019 completed LULU SUBQ TISSUE 20 SQ CM/< September 10, 2019 completed LULU SUBQ TISSUE 20 SQ CM/< September 10, 2019 completed ROUTINE VENIPUNCTURE September 10, 2019 completed METABOLIC PANEL TOTAL CA September 10, 2019 completed PROTHROMBIN TIME September 10, 2019 completed CULTURE OTHR SPECIMN AEROBIC September 10, 2019 completed CULTR BACTERIA EXCEPT BLOOD September 10, 2019 completed CULTURE AEROBIC IDENTIFY September 10, 2019 completed MICROBE SUSCEPTIBLE DIANA September 10, 2019 completed SMEAR GRAM STAIN September 10, 2019 completed RMVL DEVITAL TIS 20 CM/< September 10, 2019 completed RMVL DEVITAL TIS 20 CM/< September 10, 2019 completed RMVL DEVITAL TIS 20 CM/< September 10, 2019 completed RMVL DEVITAL TIS 20 CM/< September 10, 2019 completed FOAM DRESSING, WOUND COVER, STERILE, PAD SIZE MORE THAN 16 S September 10, 2019 completed FOAM DRESSING, WOUND COVER, STERILE, PAD SIZE MORE THAN 16 S September 10, 2019 completed FOAM DRESSING, WOUND COVER, STERILE, PAD SIZE MORE THAN 16 S September 10, 2019 completed LULU SUBQ TISSUE 20 SQ CM/< October 11, 2019 completed LULU SUBQ TISSUE 20 SQ CM/< October 11, 2019 completed LULU SUBQ TISSUE 20 SQ CM/< October 11, 2019 completed LULU SUBQ TISSUE 20 SQ CM/< October 11, 2019 completed LULU SUBQ TISSUE 20 SQ CM/< October 11, 2019 completed LULU SUBQ TISSUE 20 SQ CM/< October 11, 2019 completed RMVL DEVITAL TIS 20 CM/< October 11, 2019 completed RMVL DEVITAL TIS 20 CM/< October 11, 2019 completed FOAM DRESSING, WOUND COVER, STERILE, PAD SIZE MORE THAN 16 S October 11, 2019 completed FOAM DRESSING, WOUND COVER, STERILE, PAD SIZE MORE THAN 16 S October 11, 2019 completed FOAM DRESSING, WOUND COVER, STERILE, PAD SIZE MORE THAN 16 S October 11, 2019 completed FOAM DRESSING, WOUND COVER, STERILE, PAD SIZE MORE THAN 16 S October 11, 2019 completed Relevant Diagnostic Tests and/or Laboratory Data Laboratory Results Test Date/Time Result Interpretation Reference Range Result Co mment Performing Site Prothrombin Time September 17, 2019 1:53pm 32.6 9.1-12. 1 MAIN LAB, [address] [place] [address] Prothromb Time International Ratio September 17, 2019 1:53pm 3.03 1.0-2.0 MAIN LAB, [address] [place] [address] Sodium Level September 17, 2019 1:53pm 142 137-145 MAIN LAB, [address] [place] [address] [place] [address] Potassium Level September 17, 2019 1:53pm 4.4 3.5-5.1 MAIN LAB, [address] [place] [address] [place] [address] Chloride Level September 17, 2019 1:53pm 104 98-107 MAIN LAB, [address] [place] [address] [place] [address] Carbon Dioxide Level September 17, 2019 1:53pm 29.4 22- 30 MAIN LAB, [address] [place] [address] [place] [address] Anion Gap September 17, 2019 1:53pm 13.0 8-16 MAIN LAB, [address] [place] [address] [place] [address] Blood Urea Nitrogen September 17, 2019 1:53pm 25 9-20 MAIN LAB, [address] [place] [address] [place] [address] Creatinine September 17, 2019 1:53pm 1.05 0.66-1.25 MAIN LAB, [address] [place] [address] [place] [address] Est Glomerular Filtrat Rate mL/min September 17, 2019 1:53pm 70.45 GFR NORMALS:Stage I: GFR >90Stage II GFR 60-89Stage III GFR 30-60Stage IV: GFR 15-29Stage V: GFR <15 MAIN LAB, [address] [place] [address] [place] [address] BUN/Creatinine Ratio September 17, 2019 1:53pm 23.80 MAIN LAB, [address] [place] [address] [place] [address] Glucose Level September 17, 2019 1:53pm 119 74-106 MAIN LAB, [address] [place] [address] [place] [address] Calcium Level September 17, 2019 1:53pm 9.9 8.4-10.2 MAIN LAB, [address] [place] [address] [place] [address] Health Concerns No known health concerns documented Encounters Encounter Location(s) Arrival/Admit Date Discharge/Depart Date Provider(s) Discharged [facility] December 18, 2019 2:02 pm December 18, 2019 4:30pm TIFF MC APRN Discharged Recurring [facility] October 11, 2019 9:5 4am November 01, 2019 4:30pm TIFF MC APRN Discharged [facility] September 10, 2019 1: 02pm September 27, 2019 4:30pm TIFF MC RECOVERER Discharged [facility] August 13, 2019 8: 42am August 30, 2019 4:30pm TIFF MC RECOVERER Discharged [facility] August 09, 2019 12 :38pm August 09, 2019 4:30pm TIFF MC RECOVERER Assessments No Assessments Information Available Functional Status No Functional Status information available Goals No Goals Information Available Immunizations No Immunization Information Available Mental Status No Mental Status Information Available Medical Equipment No Medical Equipment Information available Insurance Providers Guarantor Mitch Crandall Address [address] [place] [address] Contact Info. Home Phone: Payer Policy Id Coverage Id Subscriber's Name Subscriber Id Effect juan Date Expiration Date [facility] [id number] Mitch Crandall [id number] Plan of Treatment Future Tests Future scheduled [...]
--- OUTSIDE RECORDS SUMMARY | 2020-01-18 14:09 | XMS REPORT | Clinical Summary ---
Author Author Admin, Mitch Leon Organization [facility] Address Unknown Phone Unavailable Allergies, [...] TAKE 1 TABLET DAILY SITAGLIPT IN PHOSPHATE 98797983844 Active Mitch Urbina DO Active INVOKANA TABS 100MG TAKE 1 TABLET DAILY CANAGLIFL OZIN 88501426352 Active Mitch Urbina DO Active AMLODIPINE BESYLATE 5 MG ORAL TABLET 1 tablet by mouth daily 201 05/19/02 AMLODIPINE BESYLATE 47658923191 No Longer Active Maria Briones Active WARFARIN TABS 1MG TAKE 2 TABLETS (2 MG) DAILY WITH THE 5 MG TABLET TO EQUAL 7 MG DAILY WARFARIN SODIUM 89327503875 Active Maria Briones Active WARFARIN SODIUM 5 MG TABS TAKE 1 TABLET DAILY W ARFARIN SODIUM 30670758780 Active Maria Rivas RN Active KEFLEX 500 MG ORAL CAPSULE 1 capsule by mouth three times da rocky x10 days CEPHALEXIN 66576017641 No Longer Active Maria landaverde RN Active METOPROLOL TARTRATE TABS 50MG TAKE 1 TABLET TWICE A DAY ([facility]) METOPROLOL TARTRATE 86189998981 Active Maria Briones Active DOXAZOSIN MESYLATE 2 MG ORAL TABLET 1 po q day for pr ostate and blood pressure DOXAZOSIN MESYLATE 27056497823 Active Mitch Urbina DO Active LOSARTAN TABS 100MG TAKE 1 TABLET DAILY FOR BLOOD PRESSURE LOSARTAN POTASSIUM 25184161843 Active Maria Rivas RN Active FLUTICASONE PROPIONATE 50 MCG/ACT NASAL SUSPENSION 1 s pray each nostril twice daily for 1 week, then once daily FLUTICASONE NC OPIONATE 91252199512 Active Becky Sell EXTRACTOR MACHINE OPERATOR Active PREDNISONE 20 MG ORAL TABLET 2 tabs daily for 3 days 1 tab d aily for 3 days PREDNISONE 40298828721 No Longer Active Becky Sell EXTRACTOR MACHINE OPERATOR Active MINOXIDIL 2.5 MG ORAL TABLET 1 tablet twice daily for high b lood pressure MINOXIDIL 20234812917 Active Mitch Urbina DO Ac tive METFORMIN HCL ER 500 MG ORAL TABLET EXTENDED RELEASE 2 4 HOUR 2 tablets by mouth twice daily METFORMIN HCL 42651912566 Active Mitch Urbina DO Active GLIMEPIRIDE 4 MG ORAL TABLET 1 tablet by mouth twice daily f or diabetes GLIMEPIRIDE 42601342088 Active Mitch Urbina DO Active GLIMEPIRIDE 2 MG ORAL TABLET 1 po BID GLIMEPI RIDE 42054841931 No Longer Active Mitch Urbina DO Active PROVIGIL 200 MG ORAL TABLET 1/2 tab po q day MODA FINIL 07814191095 Active Maria Rivas RN Active FAMOTIDINE 20 MG ORAL TABLET by mouth twice a day 2017 FAMOTIDINE 11542592093 No Longer Active Mitch Urbina DO Active COLCRYS 0.6 MG ORAL TABLET 1 tab qid prn gout C OLCHICINE 71308320737 No Longer Active Mitch Urbina DO Active KEFLEX 500 MG ORAL CAPSULE 1 po qid CEPHALEXI N 03651328451 No Longer Active Mitch Urbina DO Active AMLODIPINE BESYLATE 5 MG ORAL TABLET 1 tablet by mouth daily 201 01/20/04 AMLODIPINE BESYLATE 43515046576 No Longer Active Joe fulton APRN Active MITIGARE 0.6 MG ORAL CAPSULE 2 capsules at onset of go ut pain, then take one capsule at 1 hour if symptoms persist. COLCHICINE 59 871603329 Active Mitch Urbina DO Active MECLIZINE HCL 25 MG ORAL TABLET 1 po tid 3 days, then 1/2 ta b tid 3 days MECLIZINE HCL 59758987260 No Longer Active Corey SEGURA Active ALLOPURINOL 300 MG ORAL TABLET Take 1 tablet by mouth daily 2012 ALLOPURINOL 05040487345 No Longer Active Corey SEGURA Active CLONIDINE HCL 0.1 MG ORAL TABLET 1 po bid 7 days, then 1/2 t ab po bid 7 days CLONIDINE HCL 18653009638 No Longer Active Corey SEGURA Active COUMADIN 4 MG ORAL TABLET 1 tablet daily WARFAR IN SODIUM 37116693038 No Longer Active Corey SEGURA Active POLYTRIM 88950-0.1 UNIT/ML-% OPHTHALMIC SOLUTION 1 rui p in affected eye every 3 hours while awake x 7 days POLYMYXIN B-TRIMETHOP RIM 35955119847 No Longer Active Corey SEGURA Active LOSARTAN POTASSIUM-HCTZ 100-12.5 MG ORAL TABLET 1 by m outh daily for high blood pressure LOSARTAN POTASSIUM-HCTZ 54600876298 No Longer A ctive Mitch Urbina DO Active LISINOPRIL-HYDROCHLOROTHIAZIDE 20-12.5 MG ORAL TABLET 1 tab by m outh daily LISINOPRIL-HYDROCHLOROTHIAZIDE 84434899339 No Longer Active Mitch Urbina DO Active LISINOPRIL 20 MG ORAL TABLET 1 tab po at HS LIS INOPRIL 30336781238 No Longer Active Mitch Urbina DO Active COUMADIN 5 MG ORAL TABLET 1 by mouth every other day 2 WARFARIN SODIUM 08771738270 No Longer Active Mitch Urbina DO Active COUMADIN 6 MG ORAL TABLET 1 by mouth every other day 2 WARFARIN SODIUM 90683800363 No Longer Active Mitch Urbina DO Active SIMVASTATIN 40 MG ORAL TABLET 1 tab daily at bedtime SIMVASTATIN 92821311496 Active Mariajoey Rivas RN Active SIMVASTATIN 20 MG ORAL TABLET 1 tab daily at bedtime 2 SIMVASTATIN 57898237862 No Longer Active Mitch Urbina DO Active LOVENOX 100 MG/ML SUBCUTANEOUS SOLUTION One injection twice a da y ENOXAPARIN SODIUM 44163384978 No Longer Active Carmine Yusuf MD Active JANUVIA 100 MG ORAL TABLET 1/2 by mouth every day 2011 SITAGLIPTIN PHOSPHATE 58396604662 No Longer Active Bijal Segal RN Acti ve METFORMIN HCL 500 MG ORAL TABLET 2 by mouth twice daily METFORMIN HCL 74194666277 No Longer Active Renee Oconnor LPN Active COLCRYS 0.6 MG ORAL TABLET 1 po q 6 hours prn gout pain COLCHICINE 33339104382 No Longer Active Camila Reese Active LISINOPRIL 5 MG ORAL TABLET 1 by mouth every day 11/17 LISINOPRIL 19136314699 No Longer Active Nguyen Perez Active KLOR-CON 20 MEQ ORAL PACKET Take one by mouth daily 20 09/10/08 POTASSIUM CHLORIDE 01256130224 No Longer Active Nguyen Perez Active FUROSEMIDE 40 MG ORAL TABLET 1 by mouth daily F UROSEMIDE 38251819407 No Longer Active Nguyen Perez Active PROVIGIL 100 MG ORAL TABLET Take one by mouth daily 20 08/20/04 MODAFINIL 53663056364 No Longer Active Mitch Urbina DO Active BACTRIM DS 800-160 MG ORAL TABLET 1 tab by mouth twice daily 201 10/19/09 TRIMETHOPRIM-SULFAMETHOXAZOLE 78254574021 No Longer Active C alberto Hays MD Active ADULT ASPIRIN LOW STRENGTH 81 MG ORAL TABLET DISINTEGR ATING 1 by mouth every daily ASPIRIN 61079024268 Active Mitch W Carlitos DO Ac tive BACTRIM DS 800-160 MG ORAL TABLET 1 tab by mouth twice daily 201 10/19/09 BACTRIM DS 800-160 MG ORAL TABLET 711429 TRIMETHOPRIM-SULFAMETHOXAZOLE Inactive PROVIGIL 100 MG ORAL TABLET Take one by mouth daily 20 08/20/04 PROVIGIL 100 MG ORAL TABLET 931106 MODAFINIL Inactive FUROSEMIDE 40 MG ORAL TABLET 1 by mouth daily FUROSEMIDE 40 MG ORAL TABLET 731649 FUROSEMIDE Inactive KLOR-CON 20 MEQ ORAL PACKET Take one by mouth daily 09/10/08 KLOR- CON 20 MEQ ORAL PACKET 1597075 POTASSIUM CHLORIDE Inactive LISINOPRIL 5 MG ORAL TABLET 1 by mouth every day 11/17 LISINOPRIL 5 MG ORAL TABLET 067490 LISINOPRIL Inactive COLCRYS 0.6 MG ORAL TABLET 1 po q 6 hours prn gout pain COLCRYS 0.6 MG ORAL TABLET 327257 COLCHICINE Inactive JANUVIA 100 MG ORAL TABLET 1/2 by mouth every day 2011 JANUVIA 100 MG ORAL TABLET SITAGLIPTIN PHOSPHATE Inactive SIMVASTATIN 20 MG ORAL TABLET 1 tab daily at bedtime 2 SIMVASTATIN 20 MG ORAL TABLET 325114 SIMVASTATIN Inactive COUMADIN 6 MG ORAL TABLET 1 by mouth every other day 2 COUMADIN 6 MG ORAL TABLET 208734 WARFARIN SODIUM Inactive COUMADIN 5 MG ORAL TABLET 1 by mouth every other day 2 COUMADIN 5 MG ORAL TABLET 612922 WARFARIN SODIUM Inactive LISINOPRIL 20 MG ORAL TABLET 1 tab po at HS LISINOPRIL 20 MG ORAL TABLET 900580 LISINOPRIL Inactive LISINOPRIL-HYDROCHLOROTHIAZIDE 20-12.5 MG ORAL TABLET 1 tab by m outh daily LISINOPRIL-HYDROCHLOROTHIAZIDE 20-12.5 MG ORAL TABLET 879500 LISINOPRIL-HYDROCHLOROTHIAZIDE Inactive POLYTRIM 86403-8.1 UNIT/ML-% OPHTHALMIC SOLUTION 1 rui p in affected eye every 3 hours while awake x 7 days POLYTRIM 1000 0-0.1 UNIT/ML-% OPHTHALMIC SOLUTION 827045 POLYMYXIN B-TRIMETHOPRIM Inactive COUMADIN 4 MG ORAL TABLET 1 tablet daily COUMADIN 4 MG ORAL TABLET 560434 WARFARIN SODIUM Inactive CLONIDINE HCL 0.1 MG ORAL TABLET 1 po bid 7 days, then 1/2 t ab po bid 7 days CLONIDINE HCL 0.1 MG ORAL TABLET 994351 CLONIDIN E HCL Inactive ALLOPURINOL 300 MG ORAL TABLET Take 1 tablet by mouth daily 2012 ALLOPURINOL 300 MG ORAL TABLET 700940 ALLOPURINOL I nactive MECLIZINE HCL 25 MG ORAL TABLET 1 po tid 3 days, then 1/2 ta b tid 3 days MECLIZINE HCL 25 MG ORAL TABLET 126290 MECLIZINE HCL Inactive AMLODIPINE BESYLATE 5 MG ORAL TABLET 1 tablet by mouth daily 201 01/20/04 AMLODIPINE BESYLATE 5 MG ORAL TABLET 927069 AMLODIPINE BESYLATE Inactive KEFLEX 500 MG ORAL CAPSULE 1 po qid K EFLEX 500 MG ORAL CAPSULE 264948 CEPHALEXIN Inactive COLCRYS 0.6 MG ORAL TABLET 1 tab qid prn gout COLCRYS 0.6 MG ORAL TABLET 035280 COLCHICINE Inactive FAMOTIDINE 20 MG ORAL TABLET by mouth twice a day 2017 FAMOTIDINE 20 MG ORAL TABLET 832440 FAMOTIDINE Inactive GLIMEPIRIDE 2 MG ORAL TABLET 1 po BID GLIMEPIRIDE 2 MG ORAL TABLET 350499 GLIMEPIRIDE Inactive AMLODIPINE BESYLATE 5 MG ORAL TABLET 1 tablet by mouth daily 201 05/19/02 AMLODIPINE BESYLATE 5 MG ORAL TABLET 538448 AMLODIPINE BESYLATE Inactive LOVENOX 100 MG/ML SUBCUTANEOUS SOLUTION One injection twice a da y LOVENOX 100 MG/ML SUBCUTANEOUS SOLUTION 830754 ENOXAPAR IN SODIUM Inactive PREDNISONE 20 MG ORAL TABLET 2 tabs daily for 3 days 1 tab d aily for 3 days PREDNISONE 20 MG ORAL TABLET 885668 PREDNISONE Inactive KEFLEX 500 MG ORAL CAPSULE 1 capsule by mouth three times da rocky x10 days KEFLEX 500 MG ORAL CAPSULE 382866 CEPHALEXIN I nactive Advance Directives Directive Description [...] - Chem istry sodium, serum 138 mmol/L 407-659 9089/11/07 potassium, serum 4.5 mmol/L 3.5-5.2 chloride, serum [...] Panel - Chemistry sodium, serum 140 mmol/L 436-467 1378/11/01 carbon dioxide, venous blood 28.6 mmol/L 21.0-32 [...] mg/dL Encounters Code Encounter Date Provider Facility CPT-56098 [id number] Vst-Est Level IV 16:21:22 CDT Bru ce W [facility] CPT-41314 Level 3 Est. Patient 15:18:36 CDT Becky ll EXTRACTOR MACHINE OPERATOR [facility] CPT-15394 [id number] Vst-Est Level IV 10:06:35 CDT Bru ce W [facility] CPT-83764 [id number] Vst-Est Level IV 10:52:00 RAILROAD BRAKE OPERATOR Bru ce W [facility] CPT-78584 Level 3 Est. Patient 18:25:53 CDT Mitch Castellano [facility] CPT-70317 Level 3 Est. Patient 19:43:34 CDT Mitch W Nona luis [facility] CPT-60121 Level 4 Est. Patient 09:30:18 CDT Mitch luis [facility] CPT-99996 Level 3 Est. Patient 15:10:14 [facility] Level 3 Est. Patient 15:03:46 CDT Joe Jason [facility] CPT-12916 Level 3 Est. Patient 14:21:06 CDT Mitch luis [facility] CPT-96065 Level 3 Est. Patient 14:52:06 CDT Joe Jason [facility] CPT-84074 Level 3 Est. Patient 09:34:30 RAILROAD BRAKE OPERATOR Mitch luis [facility]-48766 Level 3 Est. Patient 09:37:15 CDT Mitch luis [facility] CPT-43504 Level 3 Est. Patient 17:01:00 RAILROAD BRAKE OPERATOR Mitch luis [facility] CPT-50867 Level 3 Est. Patient 13:53:19 RAILROAD BRAKE OPERATOR Mitch luis [facility] CPT-76570 Level 3 Est. Patient 19:19:37 RAILROAD BRAKE OPERATOR Mitch luis [facility] CPT-40194 Level 3 Est. Patient 13:25:53 RAILROAD BRAKE OPERATOR Tavo toure MD [facility] CPT-31029 Level 3 Est. Patient 18:17:28 CDT Mitch luis [facility] CPT-64719 Level 3 Est. Patient 15:22:57 CDT Mitch luis [facility] CPT-53331 Level 3 Est. Patient 18:21:50 CDT Mitch luis [facility] CPT-05838 Level 3 Est. Patient 18:20:38 CDT Mitch luis [facility] CPT-44012 Level 3 Est. Patient 15:37:55 CDT Mitch luis [facility] CPT-65526 Level 2 Est. Patient 15:54:44 CDT Carmine benton MD [facility] CPT-95233 Level 3 Est. Patient 21:46:01 RAILROAD BRAKE OPERATOR Mitch luis [facility] CPT-03272 Level 3 Est. Patient 22:15:50 CDT Mitch luis [facility] CPT-93930 Level 3 Est. Patient 10:48:15 CDT Mitch luis [facility] CPT-12633 Level 3 Est. Patient 23:20:57 CDT Tavo toure MD [facility] CPT-23570 Level 3 Est. Patient 16:26:13 CDT Mitch luis [facility] Procedures Code Procedure Name Date Entry Date Standard Desc ription CPT-56653 Venipuncture Draw Fee 11:20:39 RAILROAD BRAKE OPERATOR CPT-44928 Venipuncture Draw Fee 18:03:01 RAILROAD BRAKE OPERATOR CPT-58435 Venipuncture Draw Fee 10:44:42 RAILROAD BRAKE OPERATOR CPT-80352 Venipuncture Draw Fee 14:46:55 RAILROAD BRAKE OPERATOR CPT-66852 Venipuncture Draw Fee 08:26:21 CDT CPT-10617 Venous Duplex Left Leg XRAY USE ONLY 10:43:10 CDT CPT-98412 Venipuncture Draw Fee 17:04:55 CDT CPT-89964 Venipuncture Draw Fee 17:20:50 CDT CPT-69768 Venipuncture Draw Fee 18:00:48 CDT CPT-97784 Venipuncture Draw Fee 14:56:20 CDT CPT-JTINJ Asp/Joint Injection 18:47:02 CDT CPT-00205 Venipuncture Draw Fee 09:26:17 CDT CPT-29423 PT/INR - LAB USE ONLY 13:32:49 RAILROAD BRAKE OPERATOR CPT-82328 Venipuncture Draw Fee 13:32:49 RAILROAD BRAKE OPERATOR CPT-21804 PT/INR - LAB USE ONLY 10:34:49 RAILROAD BRAKE OPERATOR CPT-15102 Venipuncture Draw Fee 10:34:48 RAILROAD BRAKE OPERATOR CPT-62573 PT/INR - LAB USE ONLY 09:22:03 RAILROAD BRAKE OPERATOR CPT-04200 Venipuncture Draw Fee 09:22:02 RAILROAD BRAKE OPERATOR CPT-52401 Hemoccult IFOBT - LAB USE ONLY 10:27:22 CDT CPT-93323 Venipuncture Draw Fee 08:27:08 CDT CPT-25772 Liver Profile - LAB USE ONLY 08:27:07 CDT 2 CPT-51256 Microalbumin - LAB USE ONLY 08:27:07 CDT 20 25/05/09 CPT-56355 PT/INR - LAB USE ONLY 08:27:07 CDT CPT-02500 HGBA1C - LAB USE ONLY 08:27:07 CDT CPT-34836 CBC - LAB USE ONLY 08:27:07 CDT CPT-01806 Venipuncture Draw Fee 11:09:14 CDT CPT-98505 Venipuncture Draw Fee 08:32:21 RAILROAD BRAKE OPERATOR CPT-08631 Venipuncture Draw Fee 09:38:56 RAILROAD BRAKE OPERATOR CPT-13454 No Charge Offi Visit 21:36:07 CDT 1 CPT-40073 Venipuncture Draw Fee 10:13:28 RAILROAD BRAKE OPERATOR CPT-35684 Venipuncture Draw Fee 08:31:11 CDT CPT-99502 Aspir/Inject Med Joint 18:17:28 CDT CPT-31026 Venipuncture Draw Fee 10:13:30 CDT CPT-12440 Venipuncture Draw Fee 08:31:43 RAILROAD BRAKE OPERATOR CPT-JTINJ Joint Injection 18:34:50 CDT CPT-50521 Knee 3V 12:25:09 CDT CPT-32582 Venipuncture Draw Fee 12:15:57 CDT CPT-060 Medical Surveillance Exam 21:31:43 CDT 2011 CPT-51750 Venipuncture Draw Fee 08:32:05 RAILROAD BRAKE OPERATOR CPT-OV Office Visit 18:19:06 CDT
--- OUTSIDE RECORDS SUMMARY | 2020-01-18 14:09 | XMS REPORT | Clinical Summary ---
Author Author Admin, Mitch Leon Organization [employer] [facility] Address Unknown Phone Unavailable Allergies, Adverse Reactions, [...] Name NDC Status Provider Patient Instruction MINOXIDIL TABS 2.5MG TAKE 1 TABLET TWICE A DAY FOR HIGH BLOO D PRESSURE MINOXIDIL 27489211523 Active Mitch Urbina DO Ac tive JANUVIA TABS 50MG TAKE 1 TABLET DAILY SITAGLIPT IN PHOSPHATE 68061248740 Active Mitch Urbina DO Active INVOKANA TABS 100MG TAKE 1 TABLET DAILY CANAGLIFL OZIN 96569397142 Active Mitch Urbina DO Active AMLODIPINE BESYLATE 5 MG ORAL TABLET 1 tablet by mouth daily 201 05/19/02 AMLODIPINE BESYLATE 63733730549 No Longer Active Maria Briones Active WARFARIN TABS 1MG TAKE 2 TABLETS (2 MG) DAILY WITH THE 5 MG TABLET TO EQUAL 7 MG DAILY WARFARIN SODIUM 51450033291 Active Maria Briones Active WARFARIN SODIUM 5 MG TABS TAKE 1 TABLET DAILY W ARFARIN SODIUM 72345047467 Tori Rivas RN Active KEFLEX 500 MG ORAL CAPSULE 1 capsule by mouth three times da rocky x10 days CEPHALEXIN 13421000789 No Longer Active Maria landaverde RN Active METOPROLOL TARTRATE TABS 50MG TAKE 1 TABLET TWICE A DAY ([facility]) METOPROLOL TARTRATE 02941894666 Active Maria Briones Active DOXAZOSIN MESYLATE 2 MG ORAL TABLET 1 po q day for pr ostate and blood pressure DOXAZOSIN MESYLATE 31101241994 Active Mitch Urbina DO Active LOSARTAN TABS 100MG TAKE 1 TABLET DAILY FOR BLOOD PRESSURE LOSARTAN POTASSIUM 00661855751 Active Maria Rivas RN Active FLUTICASONE PROPIONATE 50 MCG/ACT NASAL SUSPENSION 1 s pray each nostril twice daily for 1 week, then once daily FLUTICASONE DE OPIONATE 13504002579 Active Becky Sell STUDIO PRODUCER Active PREDNISONE 20 MG ORAL TABLET 2 tabs daily for 3 days 1 tab d aily for 3 days PREDNISONE 73867113468 No Longer Active Becky Sell STUDIO PRODUCER Active METFORMIN HCL ER 500 MG ORAL TABLET EXTENDED RELEASE 2 4 HOUR 2 tablets by mouth twice daily METFORMIN HCL 60611275629 Active Mitch Urbina DO Active GLIMEPIRIDE 4 MG ORAL TABLET 1 tablet by mouth twice daily f or diabetes GLIMEPIRIDE 79304469267 Active Mitch Urbina DO Active GLIMEPIRIDE 2 MG ORAL TABLET 1 po BID GLIMEPI RIDE 80451468708 No Longer Active Mitch Urbina DO Active PROVIGIL 200 MG ORAL TABLET 1/2 tab po q day MODA FINIL 56922583754 Active Maria Rivas RN Active FAMOTIDINE 20 MG ORAL TABLET by mouth twice a day 2017 FAMOTIDINE 58919001534 No Longer Active Mitch Urbina DO Active COLCRYS 0.6 MG ORAL TABLET 1 tab qid prn gout C OLCHICINE 47976093798 No Longer Active Mitch Urbina DO Active KEFLEX 500 MG ORAL CAPSULE 1 po qid CEPHALEXI N 22730902875 No Longer Active Mitch Urbina DO Active AMLODIPINE BESYLATE 5 MG ORAL TABLET 1 tablet by mouth daily 201 01/20/04 AMLODIPINE BESYLATE 60859140960 No Longer Active Joe fulton APRN Active MITIGARE 0.6 MG ORAL CAPSULE 2 capsules at onset of go ut pain, then take one capsule at 1 hour if symptoms persist. COLCHICINE 59 993948095 Active Mitch Urbina DO Active MECLIZINE HCL 25 MG ORAL TABLET 1 po tid 3 days, then 1/2 ta b tid 3 days MECLIZINE HCL 22365019678 No Longer Active Corey SEGURA Active ALLOPURINOL 300 MG ORAL TABLET Take 1 tablet by mouth daily 2012 ALLOPURINOL 59205376286 No Longer Active Corey ESGURA Active CLONIDINE HCL 0.1 MG ORAL TABLET 1 po bid 7 days, then 1/2 t ab po bid 7 days CLONIDINE HCL 23147568654 No Longer Active Corey SEGURA Active COUMADIN 4 MG ORAL TABLET 1 tablet daily WARFAR IN SODIUM 88496014138 No Longer Active Corey SEGURA Active POLYTRIM 51736-0.1 UNIT/ML-% OPHTHALMIC SOLUTION 1 rui p in affected eye every 3 hours while awake x 7 days POLYMYXIN B-TRIMETHOP RIM 72192867357 No Longer Active Corey SEGURA Active LOSARTAN POTASSIUM-HCTZ 100-12.5 MG ORAL TABLET 1 by m outh daily for high blood pressure LOSARTAN POTASSIUM-HCTZ 73623250777 No Longer A ctive Mitch Urbina DO Active LISINOPRIL-HYDROCHLOROTHIAZIDE 20-12.5 MG ORAL TABLET 1 tab by m outh daily LISINOPRIL-HYDROCHLOROTHIAZIDE 03013266977 No Longer Active Mitch Urbina DO Active LISINOPRIL 20 MG ORAL TABLET 1 tab po at HS LIS INOPRIL 28821103232 No Longer Active Mitch Urbina DO Active COUMADIN 5 MG ORAL TABLET 1 by mouth every other day 2 WARFARIN SODIUM 52342427790 No Longer Active Mitch Urbina DO Active COUMADIN 6 MG ORAL TABLET 1 by mouth every other day 2 WARFARIN SODIUM 41626888108 No Longer Active Mitch Urbina DO Active SIMVASTATIN 40 MG ORAL TABLET 1 tab daily at bedtime SIMVASTATIN 46215878468 Active Mariajoey Rivas RN Active SIMVASTATIN 20 MG ORAL TABLET 1 tab daily at bedtime 2 SIMVASTATIN 97009567744 No Longer Active Mitch Urbina DO Active LOVENOX 100 MG/ML SUBCUTANEOUS SOLUTION One injection twice a da y ENOXAPARIN SODIUM 72908050093 No Longer Active Carmine Yusuf MD Active JANUVIA 100 MG ORAL TABLET 1/2 by mouth every day 2011 SITAGLIPTIN PHOSPHATE 52587014159 No Longer Active Bijal Segal RN Acti ve METFORMIN HCL 500 MG ORAL TABLET 2 by mouth twice daily METFORMIN HCL 07397929441 No Longer Active Renee Oconnor LPN Active COLCRYS 0.6 MG ORAL TABLET 1 po q 6 hours prn gout pain COLCHICINE 22420455439 No Longer Active Camila Reese Active LISINOPRIL 5 MG ORAL TABLET 1 by mouth every day 11/17 LISINOPRIL 00351466151 No Longer Active Nguyen Perez Active KLOR-CON 20 MEQ ORAL PACKET Take one by mouth daily 20 09/10/08 POTASSIUM CHLORIDE 21976136389 No Longer Active Nguyen Perez Active FUROSEMIDE 40 MG ORAL TABLET 1 by mouth daily F UROSEMIDE 05838603221 No Longer Active Nguyen Perez Active PROVIGIL 100 MG ORAL TABLET Take one by mouth daily 20 08/20/04 MODAFINIL 59415352949 No Longer Active Mitch Urbina DO Active BACTRIM DS 800-160 MG ORAL TABLET 1 tab by mouth twice daily 201 10/19/09 TRIMETHOPRIM-SULFAMETHOXAZOLE 71037351052 No Longer Active C alberto Hays MD Active ADULT ASPIRIN LOW STRENGTH 81 MG ORAL TABLET DISINTEGR ATING 1 by mouth every daily ASPIRIN 70151853447 Active Mitch W Carlitos DO Ac tive BACTRIM DS 800-160 MG ORAL TABLET 1 tab by mouth twice daily 201 10/19/09 BACTRIM DS 800-160 MG ORAL TABLET 878653 TRIMETHOPRIM-SULFAMETHOXAZOLE Inactive PROVIGIL 100 MG ORAL TABLET Take one by mouth daily 20 08/20/04 PROVIGIL 100 MG ORAL TABLET 837325 MODAFINIL Inactive FUROSEMIDE 40 MG ORAL TABLET 1 by mouth daily FUROSEMIDE 40 MG ORAL TABLET 211609 FUROSEMIDE Inactive KLOR-CON 20 MEQ ORAL PACKET Take one by mouth daily 09/10/08 KLOR- CON 20 MEQ ORAL PACKET 1325356 POTASSIUM CHLORIDE Inactive LISINOPRIL 5 MG ORAL TABLET 1 by mouth every day 11/17 LISINOPRIL 5 MG ORAL TABLET 615957 LISINOPRIL Inactive COLCRYS 0.6 MG ORAL TABLET 1 po q 6 hours prn gout pain COLCRYS 0.6 MG ORAL TABLET 507072 COLCHICINE Inactive JANUVIA 100 MG ORAL TABLET 1/2 by mouth every day 2011 JANUVIA 100 MG ORAL TABLET SITAGLIPTIN PHOSPHATE Inactive SIMVASTATIN 20 MG ORAL TABLET 1 tab daily at bedtime 2 SIMVASTATIN 20 MG ORAL TABLET 610177 SIMVASTATIN Inactive COUMADIN 6 MG ORAL TABLET 1 by mouth every other day 2 COUMADIN 6 MG ORAL TABLET 202432 WARFARIN SODIUM Inactive COUMADIN 5 MG ORAL TABLET 1 by mouth every other day 2 COUMADIN 5 MG ORAL TABLET 267409 WARFARIN SODIUM Inactive LISINOPRIL 20 MG ORAL TABLET 1 tab po at HS LISINOPRIL 20 MG ORAL TABLET 947122 LISINOPRIL Inactive LISINOPRIL-HYDROCHLOROTHIAZIDE 20-12.5 MG ORAL TABLET 1 tab by m outh daily LISINOPRIL-HYDROCHLOROTHIAZIDE 20-12.5 MG ORAL TABLET 266808 LISINOPRIL-HYDROCHLOROTHIAZIDE Inactive POLYTRIM 22498-7.1 UNIT/ML-% OPHTHALMIC SOLUTION 1 rui p in affected eye every 3 hours while awake x 7 days POLYTRIM 1000 0-0.1 UNIT/ML-% OPHTHALMIC SOLUTION 315798 POLYMYXIN B-TRIMETHOPRIM Inactive COUMADIN 4 MG ORAL TABLET 1 tablet daily COUMADIN 4 MG ORAL TABLET 472601 WARFARIN SODIUM Inactive CLONIDINE HCL 0.1 MG ORAL TABLET 1 po bid 7 days, then 1/2 t ab po bid 7 days CLONIDINE HCL 0.1 MG ORAL TABLET 738341 CLONIDIN E HCL Inactive ALLOPURINOL 300 MG ORAL TABLET Take 1 tablet by mouth daily 2012 ALLOPURINOL 300 MG ORAL TABLET 034763 ALLOPURINOL I nactive MECLIZINE HCL 25 MG ORAL TABLET 1 po tid 3 days, then 1/2 ta b tid 3 days MECLIZINE HCL 25 MG ORAL TABLET 638354 MECLIZINE HCL Inactive AMLODIPINE BESYLATE 5 MG ORAL TABLET 1 tablet by mouth daily 201 01/20/04 AMLODIPINE BESYLATE 5 MG ORAL TABLET 272438 AMLODIPINE BESYLATE Inactive KEFLEX 500 MG ORAL CAPSULE 1 po qid K EFLEX 500 MG ORAL CAPSULE 995272 CEPHALEXIN Inactive COLCRYS 0.6 MG ORAL TABLET 1 tab qid prn gout COLCRYS 0.6 MG ORAL TABLET 184308 COLCHICINE Inactive FAMOTIDINE 20 MG ORAL TABLET by mouth twice a day 2017 FAMOTIDINE 20 MG ORAL TABLET 808341 FAMOTIDINE Inactive GLIMEPIRIDE 2 MG ORAL TABLET 1 po BID GLIMEPIRIDE 2 MG ORAL TABLET 851053 GLIMEPIRIDE Inactive AMLODIPINE BESYLATE 5 MG ORAL TABLET 1 tablet by mouth daily 201 05/19/02 AMLODIPINE BESYLATE 5 MG ORAL TABLET 928070 AMLODIPINE BESYLATE Inactive LOVENOX 100 MG/ML SUBCUTANEOUS SOLUTION One injection twice a da y LOVENOX 100 MG/ML SUBCUTANEOUS SOLUTION 747558 ENOXAPAR IN SODIUM Inactive PREDNISONE 20 MG ORAL TABLET 2 tabs daily for 3 days 1 tab d aily for 3 days PREDNISONE 20 MG ORAL TABLET 539004 PREDNISONE Inactive KEFLEX 500 MG ORAL CAPSULE 1 capsule by mouth three times da rocky x10 days KEFLEX 500 MG ORAL CAPSULE 354099 CEPHALEXIN I nactive Advance Directives Directive Description [...] - Chem istry sodium, serum 138 mmol/L 729-127 4835/11/07 potassium, serum 4.5 mmol/L 3.5-5.2 chloride, serum [...] Panel - Chemistry sodium, serum 140 mmol/L 554-805 2428/11/01 carbon dioxide, venous blood 28.6 mmol/L 21.0-32 [...] mg/dL Encounters Code Encounter Date Provider Facility CPT-74706 [id number] Vst-Est Level IV 16:21:22 [address] [facility] CPT-58033 Level 3 Est. Patient 15:18:36 CDT Becky ll ANNEI [facility] CPT-14890 [id number] Vst-Est Level IV 10:06:[address] [facility] CPT-15288 [id number] Vst-Est Level IV 10:52:00 CHEESEMAKER HELPER Bru ce [facility] CPT-18968 Level 3 Est. Patient 18:25:53 CDT Mitch Castellano [facility] CPT-04029 Level 3 Est. Patient 19:43:34 CDT Mitch luis [facility] CPT-15065 Level 4 Est. Patient 09:30:18 CDT Mitch luis [facility] CPT-10279 Level 3 Est. Patient 15:10:14 CDT Devonjustincarlitos Gomez [facility] CPT-53686 Level 3 Est. Patient 15:03:46 CDT Joe Jason [facility] CPT-24978 Level 3 Est. Patient 14:21:06 CDT Mitch luis [facility] CPT-30086 Level 3 Est. Patient 14:52:06 CDT Joe Jason [facility] CPT-11204 Level 3 Est. Patient 09:34:30 CHEESEMAKER HELPER Mitch luis [facility]-68783 Level 3 Est. Patient 09:37:15 CDT Mitch ulis [facility] CPT-20396 Level 3 Est. Patient 17:01:00 CHEESEMAKER HELPER Mitch luis [facility] CPT-85742 Level 3 Est. Patient 13:53:19 CHEESEMAKER HELPER Mitch luis [facility] CPT-19325 Level 3 Est. Patient 19:19:37 CHEESEMAKER HELPER Mitch luis [facility] CPT-01983 Level 3 Est. Patient 13:25:53 CHEESEMAKER HELPER Tavo toure MD [facility] CPT-49992 Level 3 Est. Patient 18:17:28 CDT Mitch luis [facility] CPT-55873 Level 3 Est. Patient 15:22:57 CDT Mitch luis [facility] CPT-49345 Level 3 Est. Patient 18:21:50 CDT Mitch luis [facility] CPT-60811 Level 3 Est. Patient 18:20:38 CDT Mitch luis [facility] CPT-83228 Level 3 Est. Patient 15:37:55 CDT Mitch luis [facility] CPT-50980 Level 2 Est. Patient 15:54:44 CDT Carmine benton MD [facility] CPT-63644 Level 3 Est. Patient 21:46:01 CHEESEMAKER HELPER Mitch luis [facility] CPT-67397 Level 3 Est. Patient 22:15:50 CDT Mitch luis [facility] CPT-49255 Level 3 Est. Patient 10:48:15 CDT Mitch luis [facility] CPT-61755 Level 3 Est. Patient 23:20:57 CDT Tavo toure MD [facility] CPT-50461 Level 3 Est. Patient 16:26:13 CDT Mitch luis [facility] Procedures Code Procedure Name Date Entry Date Standard Desc ription CPT-92972 Venipuncture Draw Fee 11:20:39 [employer] CPT-31004 Venipuncture Draw Fee 18:03:01 [employer]EMAK[employer] HELPER CPT-59142 Venipuncture Draw Fee 10:44:42 [employer] CPT-65162 Venipuncture Draw Fee 14:46:55 [employer]EM[employer] HEL[employer] CPT-52911 Venipuncture Draw Fee 08:26:21 CDT CPT-09918 Venous Duplex Left Leg XRAY USE ONLY 10:43:10 CDT CPT-87253 Venipuncture Draw Fee 17:04:55 CDT CPT-07900 Venipuncture Draw Fee 17:20:50 CDT CPT-59464 Venipuncture Draw Fee 18:00:48 CDT CPT-03623 Venipuncture Draw Fee 14:56:20 CDT CPT-JTINJ Asp/Joint Injection 18:47:02 CDT CPT-49600 Venipuncture Draw Fee 09:26:17 CDT CPT-32710 PT/INR - LAB USE ONLY 13:32:49 [employer] CPT-03634 Venipuncture Draw Fee 13:32:49 [employer]ESEMAKER HELPER CPT-33932 PT/INR - LAB USE ONLY 10:34:49 CHEESEMAKER HELPER CPT-48552 Venipuncture Draw Fee 10:34:48 CHEESEMAKER HELPER CPT-92607 PT/INR - LAB USE ONLY 09:22:03 CHEESEMAKER HELPER CPT-01132 Venipuncture Draw Fee 09:22:02 CHEESEMAKER HELPER CPT-84197 Hemoccult IFOBT - LAB USE ONLY 10:27:22 CDT CPT-61624 Venipuncture Draw Fee 08:27:08 CDT CPT-52828 Liver Profile - LAB USE ONLY 08:27:07 CDT 2 CPT-66214 Microalbumin - LAB USE ONLY 08:27:07 CDT 20 25/05/09 CPT-71968 PT/INR - LAB USE ONLY 08:27:07 CDT CPT-29763 HGBA1C - LAB USE ONLY 08:27:07 CDT CPT-82497 CBC - LAB USE ONLY 08:27:07 CDT CPT-39263 Venipuncture Draw Fee 11:09:14 CDT CPT-72128 Venipuncture Draw Fee 08:32:21 CHEESEMAKER HELPER CPT-10087 Venipuncture Draw Fee 09:38:56 CHEESEMAKER HELPER CPT-22084 No Charge Offi Visit 21:36:07 CDT 1 CPT-67880 Venipuncture Draw Fee 10:13:28 CHEESEMAKER HELPER CPT-57875 Venipuncture Draw Fee 08:31:11 CDT CPT-47901 Aspir/Inject Med Joint 18:17:28 CDT CPT-91759 Venipuncture Draw Fee 10:13:30 CDT CPT-05266 Venipuncture Draw Fee 08:31:43 [employer]ESEMAKER HELPER CPT-JTINJ Joint Injection 18:34:50 CDT CPT-27953 Knee 3V 12:25:09 CDT CPT-75423 Venipuncture Draw Fee 12:15:57 CDT CPT-060 Medical Surveillance Exam 21:31:43 CDT 2011 CPT-84497 Venipuncture Draw Fee 08:32:05 CHEESEMAKER HELPER CPT-OV Office Visit 18:19:06 CDT
--- OUTSIDE RECORDS SUMMARY | 2020-01-18 14:10 | XMS REPORT | Clinical Summary ---
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 COLCHICIN E [id number] No Longer Active Mitch Urbina DO Active MINOXIDIL TABS 2.5MG TAKE 1 TABLET TWICE A DAY FOR HIGH BLOO D PRESSURE MINOXIDIL 82187755206 Active Mitch Urbina DO Ac tive JANUVIA TABS 50MG TAKE 1 TABLET DAILY SITAGLIPT IN PHOSPHATE 82641240095 Active Mitch Urbina DO Active INVOKANA TABS 100MG TAKE 1 TABLET DAILY CANAGLIFL OZIN 52462998270 Active Mitch Urbina DO Active AMLODIPINE BESYLATE 5 MG ORAL TABLET 1 tablet by mouth daily 201 05/19/02 AMLODIPINE BESYLATE 67898743175 No Longer Active Maria Briones Active WARFARIN TABS 1MG TAKE 2 TABLETS (2 MG) DAILY WITH THE 5 MG TABLET TO EQUAL 7 MG DAILY WARFARIN SODIUM 54618013722 Active Maria Briones Active WARFARIN SODIUM 5 MG TABS TAKE 1 TABLET DAILY W ARFARIN SODIUM 43372024190 Active Maria Rivas RN Active KEFLEX 500 MG ORAL CAPSULE 1 capsule by mouth three times da rocky x10 days CEPHALEXIN 78084501280 No Longer Active Maria landaverde RN Active METOPROLOL TARTRATE TABS 50MG TAKE 1 TABLET TWICE A DAY ([facility]) METOPROLOL TARTRATE 88557224217 Active Maria Briones Active DOXAZOSIN MESYLATE 2 MG ORAL TABLET 1 po q day for pr ostate and blood pressure DOXAZOSIN MESYLATE 05384382051 Active Mitch Urbina Active LOSARTAN TABS 100MG TAKE 1 TABLET DAILY FOR BLOOD PRESSURE LOSARTAN POTASSIUM 43553057595 Active Maria Rivas RN Active FLUTICASONE PROPIONATE 50 MCG/ACT NASAL SUSPENSION 1 s pray each nostril twice daily for 1 week, then once daily FLUTICASONE ME OPIONATE 13649827294 Active Becky Cade SEMICONDUCTOR ENGINEER Active PREDNISONE 20 MG ORAL TABLET 2 tabs daily for 3 days 1 tab d aily for 3 days PREDNISONE 95070980478 No Longer Active Becky Sell SEMICONDUCTOR ENGINEER Active METFORMIN HCL ER 500 MG ORAL TABLET EXTENDED RELEASE 2 4 HOUR 2 tablets by mouth twice daily METFORMIN HCL 34920738868 Active Mitch Urbina DO Active GLIMEPIRIDE 4 MG ORAL TABLET 1 tablet by mouth twice daily f or diabetes GLIMEPIRIDE 50084433446 Active Mitch Urbina DO Active GLIMEPIRIDE 2 MG ORAL TABLET 1 po BID GLIMEPI RIDE 83635724916 No Longer Active Mitch Urbina DO Active PROVIGIL 200 MG ORAL TABLET 1/2 tab po q day MODA FINIL 11018276624 Active Maria Rivas RN Active FAMOTIDINE 20 MG ORAL TABLET by mouth twice a day 2017 FAMOTIDINE 19192043376 No Longer Active Mitch Urbina DO Active COLCRYS 0.6 MG ORAL TABLET 1 tab qid prn gout C OLCHICINE 18650063758 No Longer Active Mitch Urbina DO Active KEFLEX 500 MG ORAL CAPSULE 1 po qid CEPHALEXI N 84032826673 No Longer Active Mitch Urbina DO Active AMLODIPINE BESYLATE 5 MG ORAL TABLET 1 tablet by mouth daily 201 01/20/04 AMLODIPINE BESYLATE 77926465461 No Longer Active Joe fulton APRN Active MECLIZINE HCL 25 MG ORAL TABLET 1 po tid 3 days, then 1/2 ta b tid 3 days MECLIZINE HCL 17151658912 No Longer Active Corey SEGURA Active ALLOPURINOL 300 MG ORAL TABLET Take 1 tablet by mouth daily 2012 ALLOPURINOL 66015466051 No Longer Active Corey SEGURA Active CLONIDINE HCL 0.1 MG ORAL TABLET 1 po bid 7 days, then 1/2 t ab po bid 7 days CLONIDINE HCL 10517905565 No Longer Active Corey SEGURA Active COUMADIN 4 MG ORAL TABLET 1 tablet daily WARFAR IN SODIUM 84361363932 No Longer Active Corey SEGURA Active POLYTRIM 77835-8.1 UNIT/ML-% OPHTHALMIC SOLUTION 1 rui p in affected eye every 3 hours while awake x 7 days POLYMYXIN B-TRIMETHOP RIM 28317344152 No Longer Active Corey SEGURA Active LOSARTAN POTASSIUM-HCTZ 100-12.5 MG ORAL TABLET 1 by m outh daily for high blood pressure LOSARTAN POTASSIUM-HCTZ 70424666324 No Longer A ctive Mitch Urbina DO Active LISINOPRIL-HYDROCHLOROTHIAZIDE 20-12.5 MG ORAL TABLET 1 tab by m outh daily LISINOPRIL-HYDROCHLOROTHIAZIDE 94881455115 No Longer Active Mitch Urbina DO Active LISINOPRIL 20 MG ORAL TABLET 1 tab po at HS LIS INOPRIL 87853409551 No Longer Active Mitch Urbina DO Active COUMADIN 5 MG ORAL TABLET 1 by mouth every other day 2 WARFARIN SODIUM 09288250294 No Longer Active Mitch Urbina DO Active COUMADIN 6 MG ORAL TABLET 1 by mouth every other day 2 WARFARIN SODIUM 46915832533 No Longer Active Mitch Urbina DO Active SIMVASTATIN 40 MG ORAL TABLET 1 tab daily at bedtime SIMVASTATIN 43793664182 Active Maria Rivas RN Active SIMVASTATIN 20 MG ORAL TABLET 1 tab daily at bedtime 2 SIMVASTATIN 95608864739 No Longer Active Mitch Urbina DO Active LOVENOX 100 MG/ML SUBCUTANEOUS SOLUTION One injection twice a da y ENOXAPARIN SODIUM 76091857180 No Longer Active Carmine Yusuf MD Active JANUVIA 100 MG ORAL TABLET 1/2 by mouth every day 2011 SITAGLIPTIN PHOSPHATE 09818263353 No Longer Active Bijal Segal RN Acti ve METFORMIN HCL 500 MG ORAL TABLET 2 by mouth twice daily METFORMIN HCL 00822330411 No Longer Active Renee Oconnor LPN Active COLCRYS 0.6 MG ORAL TABLET 1 po q 6 hours prn gout pain COLCHICINE 27121672795 No Longer Active Camila Reese Active LISINOPRIL 5 MG ORAL TABLET 1 by mouth every day 11/17 LISINOPRIL 20207314121 No Longer Active Nguyen Perez Active KLOR-CON 20 MEQ ORAL PACKET Take one by mouth daily 09/10/08 POTASSIUM CHLORIDE 57277217647 No Longer Active Ngyuen Perez Active FUROSEMIDE 40 MG ORAL TABLET 1 by mouth daily F UROSEMIDE 09133388543 No Longer Active Nguyen Perez Active PROVIGIL 100 MG ORAL TABLET Take one by mouth daily 20 08/20/04 MODAFINIL 48147944367 No Longer Active Mitch Urbina DO Active BACTRIM DS 800-160 MG ORAL TABLET 1 tab by mouth twice daily 201 10/19/09 TRIMETHOPRIM-SULFAMETHOXAZOLE 75778715760 No Longer Active Elian Hays MD Active ADULT ASPIRIN LOW STRENGTH 81 MG ORAL TABLET DISINTEGR ATING 1 by mouth every daily ASPIRIN 25821764095 Active Mitch Urbina DO Ac tive BACTRIM DS 800-160 MG ORAL TABLET 1 tab by mouth twice daily 201 10/19/09 BACTRIM DS 800-160 MG ORAL TABLET 702360 TRIMETHOPRIM-SULFAMETHOXAZOLE Inactive PROVIGIL 100 MG ORAL TABLET Take one by mouth daily 20 08/20/04 PROVIGIL 100 MG ORAL TABLET 518047 MODAFINIL Inactive FUROSEMIDE 40 MG ORAL TABLET 1 by mouth daily FUROSEMIDE 40 MG ORAL TABLET 607720 FUROSEMIDE Inactive KLOR-CON 20 MEQ ORAL PACKET Take one by mouth daily 09/10/08 KLOR- CON 20 MEQ ORAL PACKET 5090495 POTASSIUM CHLORIDE Inactive LISINOPRIL 5 MG ORAL TABLET 1 by mouth every day 11/17 LISINOPRIL 5 MG ORAL TABLET 676378 LISINOPRIL Inactive COLCRYS 0.6 MG ORAL TABLET 1 po q 6 hours prn gout pain COLCRYS 0.6 MG ORAL TABLET 622358 COLCHICINE Inactive JANUVIA 100 MG ORAL TABLET 1/2 by mouth every day 2011 JANUVIA 100 MG ORAL TABLET SITAGLIPTIN PHOSPHATE Inactive SIMVASTATIN 20 MG ORAL TABLET 1 tab daily at bedtime 2 SIMVASTATIN 20 MG ORAL TABLET 768076 SIMVASTATIN Inactive COUMADIN 6 MG ORAL TABLET 1 by mouth every other day 2 COUMADIN 6 MG ORAL TABLET 655444 WARFARIN SODIUM Inactive COUMADIN 5 MG ORAL TABLET 1 by mouth every other day 2 COUMADIN 5 MG ORAL TABLET 655011 WARFARIN SODIUM Inactive LISINOPRIL 20 MG ORAL TABLET 1 tab po at HS LISINOPRIL 20 MG ORAL TABLET 914782 LISINOPRIL Inactive LISINOPRIL-HYDROCHLOROTHIAZIDE 20-12.5 MG ORAL TABLET 1 tab by m outh daily LISINOPRIL-HYDROCHLOROTHIAZIDE 20-12.5 MG ORAL TABLET 981342 LISINOPRIL-HYDROCHLOROTHIAZIDE Inactive POLYTRIM 01358-0.1 UNIT/ML-% OPHTHALMIC SOLUTION 1 rui p in affected eye every 3 hours while awake x 7 days POLYTRIM 1000 0-0.1 UNIT/ML-% OPHTHALMIC SOLUTION 055926 POLYMYXIN B-TRIMETHOPRIM Inactive COUMADIN 4 MG ORAL TABLET 1 tablet daily COUMADIN 4 MG ORAL TABLET 054733 WARFARIN SODIUM Inactive CLONIDINE HCL 0.1 MG ORAL TABLET 1 po bid 7 days, then 1/2 t ab po bid 7 days CLONIDINE HCL 0.1 MG ORAL TABLET 084218 CLONIDIN E HCL Inactive ALLOPURINOL 300 MG ORAL TABLET Take 1 tablet by mouth daily 2012 ALLOPURINOL 300 MG ORAL TABLET 448920 ALLOPURINOL I nactive MECLIZINE HCL 25 MG ORAL TABLET 1 po tid 3 days, then 1/2 ta b tid 3 days MECLIZINE HCL 25 MG ORAL TABLET 658088 MECLIZINE HCL Inactive AMLODIPINE BESYLATE 5 MG ORAL TABLET 1 tablet by mouth daily 201 01/20/04 AMLODIPINE BESYLATE 5 MG ORAL TABLET 722974 AMLODIPINE BESYLATE Inactive KEFLEX 500 MG ORAL CAPSULE 1 po qid K EFLEX 500 MG ORAL CAPSULE 201914 CEPHALEXIN Inactive COLCRYS 0.6 MG ORAL TABLET 1 tab qid prn gout COLCRYS 0.6 MG ORAL TABLET 867857 COLCHICINE Inactive FAMOTIDINE 20 MG ORAL TABLET by mouth twice a day 2017 FAMOTIDINE 20 MG ORAL TABLET 949568 FAMOTIDINE Inactive GLIMEPIRIDE 2 MG ORAL TABLET 1 po BID GLIMEPIRIDE 2 MG ORAL TABLET 221137 GLIMEPIRIDE Inactive AMLODIPINE BESYLATE 5 MG ORAL TABLET 1 tablet by mouth daily 201 05/19/02 AMLODIPINE BESYLATE 5 MG ORAL TABLET 699908 AMLODIPINE BESYLATE Inactive MITIGARE 0.6 MG ORAL CAPSULE 2 capsules at onset of go ut pain, then take one capsule at 1 hour if symptoms persist. M ITIGARE 0.6 MG ORAL CAPSULE 5021016 COLCHICINE Inactive LOVENOX 100 MG/ML SUBCUTANEOUS SOLUTION One injection twice a da y LOVENOX 100 MG/ML SUBCUTANEOUS SOLUTION 610948 ENOXAPAR IN SODIUM Inactive PREDNISONE 20 MG ORAL TABLET 2 tabs daily for 3 days 1 tab d aily for 3 days PREDNISONE 20 MG ORAL TABLET 039368 PREDNISONE Inactive KEFLEX 500 MG ORAL CAPSULE 1 capsule by mouth three times da rocky x10 days KEFLEX 500 MG ORAL CAPSULE 835152 CEPHALEXIN I nactive Advance Directives Directive Description [...] - Chem istry sodium, serum 138 mmol/L 975-911 0486/11/07 potassium, serum 4.5 mmol/L 3.5-5.2 chloride, serum [...] 0.70 mg/dL 0.00-1.00 sodium, serum 140 mmol/L 460-104 3220/11/01 carbon dioxide, venous blood 28.6 mmol/L 21.0-32 [...] 50-136 Encounters Code Encounter Date Provider Facility CPT-77696 [id number] Vst-Est Level IV 11:57:44 CDT Bru ce W [facility]-86249 72625-Yoe Vst-Est Level IV 16:21:22 CDT Bru ce W [facility] CPT-78761 Level 3 Est. Patient 15:18:36 CDT Becky anderson [facility]-71432 [id number] Vst-Est Level IV 10:06:35 CDT Bru ce W [facility]-70595 [id number] Vst-Est Level IV 10:52:00 FLOUR INSPECTOR Bru ce W [facility] CPT-35945 Level 3 Est. Patient 18:25:53 CDT Mitch luis [facility] CPT-43518 Level 3 Est. Patient 19:43:34 CDT Mitch luis [facility] CPT-32273 Level 4 Est. Patient 09:30:18 CDT Mitch luis [facility] CPT-89591 Level 3 Est. Patient 15:10:14 CDT Joe kamara [facility]-13215 Level 3 Est. Patient 15:03:46 CDT Joe kamara [facility] CPT-35908 Level 3 Est. Patient 14:21:06 CDT Mitch Ambrose L ee [facility]-66077 Level 3 Est. Patient 14:52:06 CDT Joe kamara [facility]-22853 Level 3 Est. Patient 09:34:30 FLOUR INSPECTOR Mitch W L ee [facility]-86055 Level 3 Est. Patient 09:37:15 CDT Mitch W L ee [facility] CPT-37938 Level 3 Est. Patient 17:01:00 FLOUR INSPECTOR Mitch W L ee [facility] CPT-63755 Level 3 Est. Patient 13:53:19 FLOUR INSPECTOR Mitch W L ee [facility] CPT-88929 Level 3 Est. Patient 19:19:37 FLOUR INSPECTOR Mitch W L ee [facility] CPT-91439 Level 3 Est. Patient 13:25:53 FLOUR INSPECTOR Tavo toure MD [facility]-04701 Level 3 Est. Patient 18:17:28 CDT Mitch W L ee [facility] CPT-83652 Level 3 Est. Patient 15:22:57 CDT Mitch W L ee [facility]-36376 Level 3 Est. Patient 18:21:50 CDT Mitch W L ee [facility]-30798 Level 3 Est. Patient 18:20:38 CDT Mitch W L ee [facility] CPT-95651 Level 3 Est. Patient 15:37:55 CDT Mitch W L ee [facility] CPT-22237 Level 2 Est. Patient 15:54:44 CDT Carmine benton MD [facility]-08421 Level 3 Est. Patient 21:46:01 FLOUR INSPECTOR Mitch W L ee [facility] CPT-40446 Level 3 Est. Patient 22:15:50 CDT Mitch Arnol luis [facility] CPT-90946 Level 3 Est. Patient 10:48:15 CDT Mitch Arnol luis [facility] CPT-41106 Level 3 Est. Patient 23:20:57 CDT Tavo toure MD [facility] CPT-87108 Level 3 Est. Patient 16:26:13 CDT Mitch Arnol Nona janelle [facility] Procedures Code Procedure Name Date Entry Date Standard Desc ription CPT-84255 EKG Trac and Interp - XRAY USE ONLY 1 2:03:24 CDT CPT-02018 Venipuncture Draw Fee 12:01:15 CDT CPT-[id number] () Dilated retinal eye exam w/interp vice president and portfolio manager/high lift driver documented 11:50:34 CDT CPT-04540 Venipuncture Draw Fee 11:20:39 FLOUR INSPECTOR CPT-49080 Venipuncture Draw Fee 18:03:01 FLOUR INSPECTOR CPT-32814 Venipuncture Draw Fee 10:44:42 FLOUR INSPECTOR CPT-17424 Venipuncture Draw Fee 14:46:55 FLOUR INSPECTOR CPT-61622 Venipuncture Draw Fee 08:26:21 CDT CPT-00696 Venous Duplex Left Leg XRAY USE ONLY 10:43:10 CDT CPT-42456 Venipuncture Draw Fee 17:04:55 CDT CPT-66009 Venipuncture Draw Fee 17:20:50 CDT CPT-06375 Venipuncture Draw Fee 18:00:48 CDT CPT-77733 Venipuncture Draw Fee 14:56:20 CDT CPT-JTINJ Asp/Joint Injection 18:47:02 CDT CPT-43792 Venipuncture Draw Fee 09:26:17 CDT CPT-39291 PT/INR - LAB USE ONLY 13:32:49 FLOUR INSPECTOR CPT-00364 Venipuncture Draw Fee 13:32:49 FLOUR INSPECTOR CPT-64608 PT/INR - LAB USE ONLY 10:34:49 FLOUR INSPECTOR CPT-78847 Venipuncture Draw Fee 10:34:48 FLOUR INSPECTOR CPT-76652 PT/INR - LAB USE ONLY 09:22:03 FLOUR INSPECTOR CPT-06991 Venipuncture Draw Fee 09:22:02 FLOUR INSPECTOR CPT-19463 Hemoccult IFOBT - LAB USE ONLY 10:27:22 CDT CPT-64190 Venipuncture Draw Fee 08:27:08 CDT CPT-06747 Liver Profile - LAB USE ONLY 08:27:07 CDT 2 CPT-67997 Microalbumin - LAB USE ONLY 08:27:07 CDT 20 25/05/09 CPT-86457 PT/INR - LAB USE ONLY 08:27:07 CDT CPT-73149 HGBA1C - LAB USE ONLY 08:27:07 CDT CPT-27518 CBC - LAB USE ONLY 08:27:07 CDT CPT-27553 Venipuncture Draw Fee 11:09:14 CDT CPT-78759 Venipuncture Draw Fee 08:32:21 FLOUR INSPECTOR CPT-47693 Venipuncture Draw Fee 09:38:56 FLOUR INSPECTOR CPT-86179 No Charge Offi Visit 21:36:07 CDT 1 CPT-65460 Venipuncture Draw Fee 10:13:28 FLOUR INSPECTOR CPT-80290 Venipuncture Draw Fee 08:31:11 CDT CPT-26523 Aspir/Inject Med Joint 18:17:28 CDT CPT-83843 Venipuncture Draw Fee 10:13:30 CDT CPT-04567 Venipuncture Draw Fee 08:31:43 FLOUR INSPECTOR CPT-JTINJ Joint Injection 18:34:50 CDT CPT-86923 Knee 3V 12:25:09 CDT CPT-13338 Venipuncture Draw Fee 12:15:57 CDT CPT-060 Medical Surveillance Exam 21:31:43 CDT 2011 CPT-56779 Venipuncture Draw Fee 08:32:05 FLOUR INSPECTOR CPT-OV Office Visit 18:19:06 CDT
--- OUTSIDE RECORDS SUMMARY | 2020-01-18 14:10 | XMS REPORT | Clinical Summary ---
Author Author Admin, Mitch Leon Organization [facility] Address Unknown Phone Unavailable Allergies, Adverse Reactions, [...] Coronary atherosclerosis of unspecified type of vessel, tolowa dee-ni' or graft EDEMA 782.3 Resolved Mitch Urbina [...] 1 hour if symptoms persist. COLCHICIN E 08400502420 No Longer Active Mitch Urbina DO Active MINOXIDIL TABS 2.5MG TAKE 1 TABLET TWICE A DAY FOR HIGH BLOO D PRESSURE MINOXIDIL 03014954729 Active Mitch Urbina DO Ac tive JANUVIA TABS 50MG TAKE 1 TABLET DAILY SITAGLIPT IN PHOSPHATE 41022332590 Active Mitch Urbina DO Active INVOKANA TABS 100MG TAKE 1 TABLET DAILY CANAGLIFL OZIN 58759251492 Active Mitch Urbina DO Active AMLODIPINE BESYLATE 5 MG ORAL TABLET 1 tablet by mouth daily 201 05/19/02 AMLODIPINE BESYLATE 48208810739 No Longer Active Maria Briones Active WARFARIN TABS 1MG TAKE 2 TABLETS (2 MG) DAILY WITH THE 5 MG TABLET TO EQUAL 7 MG DAILY WARFARIN SODIUM 45921285579 Active Maria Briones Active WARFARIN SODIUM 5 MG TABS TAKE 1 TABLET DAILY W ARFARIN SODIUM 18842585144 Active Maria Rivas RN Active KEFLEX 500 MG ORAL CAPSULE 1 capsule by mouth three times da rocky x10 days CEPHALEXIN 91367421839 No Longer Active Maria landaverde RN Active METOPROLOL TARTRATE TABS 50MG TAKE 1 TABLET TWICE A DAY ([facility]) METOPROLOL TARTRATE 73520825709 Active Maria Briones Active DOXAZOSIN MESYLATE 2 MG ORAL TABLET 1 po q day for pr ostate and blood pressure DOXAZOSIN MESYLATE 04132853861 Active Mitch Urbina Active LOSARTAN TABS 100MG TAKE 1 TABLET DAILY FOR BLOOD PRESSURE LOSARTAN POTASSIUM 36724264283 Active Maria Rivas RN Active FLUTICASONE PROPIONATE 50 MCG/ACT NASAL SUSPENSION 1 s pray each nostril twice daily for 1 week, then once daily FLUTICASONE SC OPIONATE 60080250359 Active Becky Cade SECY Active PREDNISONE 20 MG ORAL TABLET 2 tabs daily for 3 days 1 tab d aily for 3 days PREDNISONE 29561021915 No Longer Active Becky Sell SECY Active METFORMIN HCL ER 500 MG ORAL TABLET EXTENDED RELEASE 2 4 HOUR 2 tablets by mouth twice daily METFORMIN HCL 39415398124 Active Mitch Urbina DO Active GLIMEPIRIDE 4 MG ORAL TABLET 1 tablet by mouth twice daily f or diabetes GLIMEPIRIDE 88376476027 Active Mitch Urbina DO Active GLIMEPIRIDE 2 MG ORAL TABLET 1 po BID GLIMEPI RIDE 68864712634 No Longer Active Mitch Urbina DO Active PROVIGIL 200 MG ORAL TABLET 1/2 tab po q day MODA FINIL 57476037264 Active Maria Rivas RN Active FAMOTIDINE 20 MG ORAL TABLET by mouth twice a day 2017 FAMOTIDINE 71293200778 No Longer Active Mitch Urbina DO Active COLCRYS 0.6 MG ORAL TABLET 1 tab qid prn gout C OLCHICINE 43512853418 No Longer Active Mitch Urbina DO Active KEFLEX 500 MG ORAL CAPSULE 1 po qid CEPHALEXI N 44653677835 No Longer Active Mitch Urbina DO Active AMLODIPINE BESYLATE 5 MG ORAL TABLET 1 tablet by mouth daily 201 01/20/04 AMLODIPINE BESYLATE 65854057807 No Longer Active Joe fulton APRN Active MECLIZINE HCL 25 MG ORAL TABLET 1 po tid 3 days, then 1/2 ta b tid 3 days MECLIZINE HCL 26659582799 No Longer Active Corey SEGURA Active ALLOPURINOL 300 MG ORAL TABLET Take 1 tablet by mouth daily 2012 ALLOPURINOL 80439239866 No Longer Active Corey SEGURA Active CLONIDINE HCL 0.1 MG ORAL TABLET 1 po bid 7 days, then 1/2 t ab po bid 7 days CLONIDINE HCL 14201729279 No Longer Active Corey SEGURA Active COUMADIN 4 MG ORAL TABLET 1 tablet daily WARFAR IN SODIUM 59661520915 No Longer Active Corey SEGURA Active POLYTRIM 27175-8.1 UNIT/ML-% OPHTHALMIC SOLUTION 1 rui p in affected eye every 3 hours while awake x 7 days POLYMYXIN B-TRIMETHOP RIM 06588086111 No Longer Active Corey SEGURA Active LOSARTAN POTASSIUM-HCTZ 100-12.5 MG ORAL TABLET 1 by m outh daily for high blood pressure LOSARTAN POTASSIUM-HCTZ 56035458514 No Longer A ctive Mitch Urbina DO Active LISINOPRIL-HYDROCHLOROTHIAZIDE 20-12.5 MG ORAL TABLET 1 tab by m outh daily LISINOPRIL-HYDROCHLOROTHIAZIDE 34210304933 No Longer Active Mitch Urbina DO Active LISINOPRIL 20 MG ORAL TABLET 1 tab po at HS LIS INOPRIL 41980552387 No Longer Active Mitch Urbina DO Active COUMADIN 5 MG ORAL TABLET 1 by mouth every other day 2 WARFARIN SODIUM 76947065057 No Longer Active Mitch Urbina DO Active COUMADIN 6 MG ORAL TABLET 1 by mouth every other day 2 WARFARIN SODIUM 88145857366 No Longer Active Mitch Urbina DO Active SIMVASTATIN 40 MG ORAL TABLET 1 tab daily at bedtime SIMVASTATIN 28531570216 Active Maria Rivas RN Active SIMVASTATIN 20 MG ORAL TABLET 1 tab daily at bedtime 2 SIMVASTATIN 63720993447 No Longer Active Mitch Urbina DO Active LOVENOX 100 MG/ML SUBCUTANEOUS SOLUTION One injection twice a da y ENOXAPARIN SODIUM 77236640740 No Longer Active Carmine Yusuf MD Active JANUVIA 100 MG ORAL TABLET 1/2 by mouth every day 2011 SITAGLIPTIN PHOSPHATE 51990377554 No Longer Active Bijal Segal RN Acti ve METFORMIN HCL 500 MG ORAL TABLET 2 by mouth twice daily METFORMIN HCL 89379098066 No Longer Active Renee Oconnor LPN Active COLCRYS 0.6 MG ORAL TABLET 1 po q 6 hours prn gout pain COLCHICINE 62140443608 No Longer Active Camila Reese Active LISINOPRIL 5 MG ORAL TABLET 1 by mouth every day 11/17 LISINOPRIL 22245666702 No Longer Active Nguyen Perez Active KLOR-CON 20 MEQ ORAL PACKET Take one by mouth daily 09/10/08 POTASSIUM CHLORIDE 45925088688 No Longer Active Nguyen Perez Active FUROSEMIDE 40 MG ORAL TABLET 1 by mouth daily F UROSEMIDE 49740191461 No Longer Active Nguyen Perez Active PROVIGIL 100 MG ORAL TABLET Take one by mouth daily 20 08/20/04 MODAFINIL 47613258306 No Longer Active Mitch Urbina DO Active BACTRIM DS 800-160 MG ORAL TABLET 1 tab by mouth twice daily 201 10/19/09 TRIMETHOPRIM-SULFAMETHOXAZOLE 86388233476 No Longer Active Elian Hays MD Active ADULT ASPIRIN LOW STRENGTH 81 MG ORAL TABLET DISINTEGR ATING 1 by mouth every daily ASPIRIN 50789117010 Active Mitch Urbina DO Ac tive BACTRIM DS 800-160 MG ORAL TABLET 1 tab by mouth twice daily 201 10/19/09 BACTRIM DS 800-160 MG ORAL TABLET 317624 TRIMETHOPRIM-SULFAMETHOXAZOLE Inactive PROVIGIL 100 MG ORAL TABLET Take one by mouth daily 20 08/20/04 PROVIGIL 100 MG ORAL TABLET 607772 MODAFINIL Inactive FUROSEMIDE 40 MG ORAL TABLET 1 by mouth daily FUROSEMIDE 40 MG ORAL TABLET 216367 FUROSEMIDE Inactive KLOR-CON 20 MEQ ORAL PACKET Take one by mouth daily 09/10/08 KLOR- CON 20 MEQ ORAL PACKET 1288278 POTASSIUM CHLORIDE Inactive LISINOPRIL 5 MG ORAL TABLET 1 by mouth every day 11/17 LISINOPRIL 5 MG ORAL TABLET 406274 LISINOPRIL Inactive COLCRYS 0.6 MG ORAL TABLET 1 po q 6 hours prn gout pain COLCRYS 0.6 MG ORAL TABLET 542455 COLCHICINE Inactive JANUVIA 100 MG ORAL TABLET 1/2 by mouth every day 2011 JANUVIA 100 MG ORAL TABLET SITAGLIPTIN PHOSPHATE Inactive SIMVASTATIN 20 MG ORAL TABLET 1 tab daily at bedtime 2 SIMVASTATIN 20 MG ORAL TABLET 749766 SIMVASTATIN Inactive COUMADIN 6 MG ORAL TABLET 1 by mouth every other day 2 COUMADIN 6 MG ORAL TABLET 815468 WARFARIN SODIUM Inactive COUMADIN 5 MG ORAL TABLET 1 by mouth every other day 2 COUMADIN 5 MG ORAL TABLET 662171 WARFARIN SODIUM Inactive LISINOPRIL 20 MG ORAL TABLET 1 tab po at HS LISINOPRIL 20 MG ORAL TABLET 639779 LISINOPRIL Inactive LISINOPRIL-HYDROCHLOROTHIAZIDE 20-12.5 MG ORAL TABLET 1 tab by m outh daily LISINOPRIL-HYDROCHLOROTHIAZIDE 20-12.5 MG ORAL TABLET 191664 LISINOPRIL-HYDROCHLOROTHIAZIDE Inactive POLYTRIM 54429-8.1 UNIT/ML-% OPHTHALMIC SOLUTION 1 rui p in affected eye every 3 hours while awake x 7 days POLYTRIM 1000 0-0.1 UNIT/ML-% OPHTHALMIC SOLUTION 373270 POLYMYXIN B-TRIMETHOPRIM Inactive COUMADIN 4 MG ORAL TABLET 1 tablet daily COUMADIN 4 MG ORAL TABLET 171119 WARFARIN SODIUM Inactive CLONIDINE HCL 0.1 MG ORAL TABLET 1 po bid 7 days, then 1/2 t ab po bid 7 days CLONIDINE HCL 0.1 MG ORAL TABLET 154200 CLONIDIN E HCL Inactive ALLOPURINOL 300 MG ORAL TABLET Take 1 tablet by mouth daily 2012 ALLOPURINOL 300 MG ORAL TABLET 797546 ALLOPURINOL I nactive MECLIZINE HCL 25 MG ORAL TABLET 1 po tid 3 days, then 1/2 ta b tid 3 days MECLIZINE HCL 25 MG ORAL TABLET 621450 MECLIZINE HCL Inactive AMLODIPINE BESYLATE 5 MG ORAL TABLET 1 tablet by mouth daily 201 01/20/04 AMLODIPINE BESYLATE 5 MG ORAL TABLET 239573 AMLODIPINE BESYLATE Inactive KEFLEX 500 MG ORAL CAPSULE 1 po qid K EFLEX 500 MG ORAL CAPSULE 279463 CEPHALEXIN Inactive COLCRYS 0.6 MG ORAL TABLET 1 tab qid prn gout COLCRYS 0.6 MG ORAL TABLET 277364 COLCHICINE Inactive FAMOTIDINE 20 MG ORAL TABLET by mouth twice a day 2017 FAMOTIDINE 20 MG ORAL TABLET 004323 FAMOTIDINE Inactive GLIMEPIRIDE 2 MG ORAL TABLET 1 po BID GLIMEPIRIDE 2 MG ORAL TABLET 950507 GLIMEPIRIDE Inactive AMLODIPINE BESYLATE 5 MG ORAL TABLET 1 tablet by mouth daily 201 05/19/02 AMLODIPINE BESYLATE 5 MG ORAL TABLET 874175 AMLODIPINE BESYLATE Inactive MITIGARE 0.6 MG ORAL CAPSULE 2 capsules at onset of go ut pain, then take one capsule at 1 hour if symptoms persist. M ITIGARE 0.6 MG ORAL CAPSULE 8120149 COLCHICINE Inactive LOVENOX 100 MG/ML SUBCUTANEOUS SOLUTION One injection twice a da y LOVENOX 100 MG/ML SUBCUTANEOUS SOLUTION 510609 ENOXAPAR IN SODIUM Inactive PREDNISONE 20 MG ORAL TABLET 2 tabs daily for 3 days 1 tab d aily for 3 days PREDNISONE 20 MG ORAL TABLET 021373 PREDNISONE Inactive KEFLEX 500 MG ORAL CAPSULE 1 capsule by mouth three times da rocky x10 days KEFLEX 500 MG ORAL CAPSULE 408081 CEPHALEXIN I nactive Advance Directives Directive Description [...] - Chem istry sodium, serum 138 mmol/L 375-607 3320/11/07 potassium, serum 4.5 mmol/L 3.5-5.2 chloride, serum [...] 0.70 mg/dL 0.00-1.00 sodium, serum 140 mmol/L 868-885 0001/11/01 carbon dioxide, venous blood 28.6 mmol/L 21.0-32 [...] 50-136 Encounters Code Encounter Date Provider Facility CPT-42011 27532-Bvs Vst-Est Level IV 11:57:44 CDT Bru ce W [facility]-66488 27600-Ats Vst-Est Level IV 16:21:22 CDT Bru ce W [facility] CPT-32810 Level 3 Est. Patient 15:18:36 CDT Becky anderson [facility]-40664 60719-Fom Vst-Est Level IV 10:06:35 CDT Bru ce W [facility]-31481 26747-Rui Vst-Est Level IV 10:52:00 [employer] Bru ce W [facility] CPT-52222 Level 3 Est. Patient 18:25:53 CDT Mitch luis [facility] CPT-87658 Level 3 Est. Patient 19:43:34 CDT Mitch luis [facility] CPT-52063 Level 4 Est. Patient 09:30:18 CDT Mitch luis [facility] CPT-83384 Level 3 Est. Patient 15:10:14 CDT Joe kamara [facility]-92156 Level 3 Est. Patient 15:03:46 CDT Joe kamara [facility] CPT-38256 Level 3 Est. Patient 14:21:06 CDT Mitch Ambrose L ee [facility]-67280 Level 3 Est. Patient 14:52:06 CDT Joe kamara [facility]-63344 Level 3 Est. Patient 09:34:30 [employer] Mitch W L ee [facility]-89400 Level 3 Est. Patient 09:37:15 CDT Mitch W L ee [facility] CPT-12363 Level 3 Est. Patient 17:01:00 [employer] Mitch W L ee [facility] CPT-02727 Level 3 Est. Patient 13:53:19 [employer] Mitch W L ee [facility] CPT-15918 Level 3 Est. Patient 19:19:37 [employer] Mitch W L ee [facility] CPT-60489 Level 3 Est. Patient 13:25:53 [employer] Tavo toure MD [facility]-06203 Level 3 Est. Patient 18:17:28 CDT Mitch W L ee [facility] CPT-21192 Level 3 Est. Patient 15:22:57 CDT Mitch W L ee [facility]-37397 Level 3 Est. Patient 18:21:50 CDT Mitch W L ee [facility]-16039 Level 3 Est. Patient 18:20:38 CDT Mitch W L ee [facility] CPT-26813 Level 3 Est. Patient 15:37:55 CDT Mitch W L ee [facility] CPT-05642 Level 2 Est. Patient 15:54:44 CDT Carmine benton MD [facility]-92687 Level 3 Est. Patient 21:46:01 [employer] Mitch W L ee [facility] CPT-87050 Level 3 Est. Patient 22:15:50 CDT Mitch Arnol luis [facility] CPT-01202 Level 3 Est. Patient 10:48:15 CDT Mitch Arnol luis [facility] CPT-83553 Level 3 Est. Patient 23:20:57 CDT Tavo toure MD [facility] CPT-52287 Level 3 Est. 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 documented 11:50:34 CDT CPT-94789 Venipuncture Draw Fee 11:20:39 [employer] CPT-96924 Venipuncture Draw Fee 18:03:01 [employer] CPT-99271 Venipuncture Draw Fee 10:44:42 [employer] CPT-07863 Venipuncture Draw Fee 14:46:55 [employer] CPT-76130 Venipuncture Draw Fee 08:26:21 CDT CPT-98651 Venous Duplex Left Leg XRAY USE ONLY 10:43:10 CDT CPT-99513 Venipuncture Draw Fee 17:04:55 CDT CPT-16079 Venipuncture Draw Fee 17:20:50 CDT CPT-63823 Venipuncture Draw Fee 18:00:48 CDT CPT-26905 Venipuncture Draw Fee 14:56:20 CDT CPT-JTINJ Asp/Joint Injection 18:47:02 CDT CPT-31136 Venipuncture Draw Fee 09:26:17 CDT CPT-08308 PT/INR - LAB USE ONLY 13:32:49 [employer] CPT-92619 Venipuncture Draw Fee 13:32:49 [employer] CPT-85210 PT/INR - LAB USE ONLY 10:34:49 [employer] CPT-51861 Venipuncture Draw Fee 10:34:48 [employer] CPT-07518 PT/INR - LAB USE ONLY 09:22:03 [employer] CPT-07591 Venipuncture Draw Fee 09:22:02 [employer] CPT-54087 Hemoccult IFOBT - LAB USE ONLY 10:27:22 CDT CPT-20187 Venipuncture Draw Fee 08:27:08 CDT CPT-42949 Liver Profile - LAB USE ONLY 08:27:07 CDT 2 CPT-44860 Microalbumin - LAB USE ONLY 08:27:07 CDT 20 25/05/09 CPT-21524 PT/INR - LAB USE ONLY 08:27:07 CDT CPT-85989 HGBA1C - LAB USE ONLY 08:27:07 CDT CPT-10471 CBC - LAB USE ONLY 08:27:07 CDT CPT-83408 Venipuncture Draw Fee 11:09:14 CDT CPT-72983 Venipuncture Draw Fee 08:32:21 [employer] CPT-20871 Venipuncture Draw Fee 09:38:56 [employer] CPT-93363 No Charge Offi Visit 21:36:07 CDT 1 CPT-21202 Venipuncture Draw Fee 10:13:28 [employer] CPT-27531 Venipuncture Draw Fee 08:31:11 CDT CPT-78634 Aspir/Inject Med Joint 18:17:28 CDT CPT-89829 Venipuncture Draw Fee 10:13:30 CDT CPT-52426 Venipuncture Draw Fee 08:31:43 [employer] CPT-JTINJ Joint Injection 18:34:50 CDT CPT-38552 Knee 3V 12:25:09 CDT CPT-20349 Venipuncture Draw Fee 12:15:57 CDT CPT-060 Medical Surveillance Exam 21:31:43 CDT 2011 CPT-79551 Venipuncture Draw Fee 08:32:05 [employer] CPT-OV Office Visit 18:19:06 CDT
--- OUTSIDE RECORDS SUMMARY | 2020-01-18 14:11 | XMS REPORT | Clinical Summary ---
Author Author Admin, Mitch Leon Organization [facility] [employer] Address Unknown Phone Unavailable Allergies, Adverse Reactions, [...] Active Mitch luis DO Preoperative examination, unspecified Low hemoglobin 285.9 Active Ruchi Bennett RMA Anemia, unspecified CELLULITIS, GROIN, LEFT ICD-682.2 Inactive Zoya [...] Robles Abnormal nuclear stress test ICD-794.39 Inactiv e Adrianna Isidro MA Medication List Medication Instructions Start Date Stop Date Generic Name NDC Status Provider Patient Instruction MAGNESIUM OXIDE 400 MG ORAL TABLET 1 po daily M AGNESIUM OXIDE 02855863665 Active Ruchi DUARTE Active METFORMIN HCL ER TABS 500MG TAKE 2 TABLETS TWICE A DAY METFORMIN HCL 85449839604 Active Ruchi DUARTE Active MITIGARE 0.6 MG ORAL CAPSULE 2 capsules at onset of go ut pain, then take one capsule at 1 hour if symptoms persist. COLCHICIN E 44933146272 No Longer Active Mitch Urbina DO Active MINOXIDIL TABS 2.5MG TAKE 1 TABLET TWICE A DAY FOR HIGH BLOO D PRESSURE MINOXIDIL 25256606985 Active Mitch Urbina DO Ac tive JANUVIA TABS 50MG TAKE 1 TABLET DAILY SITAGLIPT IN PHOSPHATE 66521419607 Active Mitch Urbina DO Active INVOKANA TABS 100MG TAKE 1 TABLET DAILY CANAGLIFL OZIN 49194032759 Active Mitch Urbina DO Active AMLODIPINE BESYLATE 5 MG ORAL TABLET 1 tablet by mouth daily 201 05/19/02 AMLODIPINE BESYLATE 28536929790 No Longer Active Maria Briones Active WARFARIN TABS 1MG TAKE 2 TABLETS (2 MG) DAILY WITH THE 5 MG TABLET TO EQUAL 7 MG DAILY WARFARIN SODIUM 89556663202 Active Maria Briones Active WARFARIN SODIUM 5 MG TABS TAKE 1 TABLET DAILY W ARFARIN SODIUM 17296409148 Active Maria Rivas RN Active KEFLEX 500 MG ORAL CAPSULE 1 capsule by mouth three times da rocky x10 days CEPHALEXIN 29176640851 No Longer Active Maria landaverde RN Active METOPROLOL TARTRATE TABS 50MG TAKE 1 TABLET TWICE A DAY ([facility]) METOPROLOL TARTRATE 73617771762 Active Maria Briones Active DOXAZOSIN MESYLATE 2 MG ORAL TABLET 1 po q day for pr ostate and blood pressure DOXAZOSIN MESYLATE 15224407079 Active Mitch Urbina DO Active LOSARTAN TABS 100MG TAKE 1 TABLET DAILY FOR BLOOD PRESSURE LOSARTAN POTASSIUM 98014719304 Active Maria Rivas RN Active FLUTICASONE PROPIONATE 50 MCG/ACT NASAL SUSPENSION 1 s pray each nostril twice daily for 1 week, then once daily FLUTICASONE AZ OPIONATE 16236923957 Active Becky Sell TURBOGENERATOR OPERATOR Active PREDNISONE 20 MG ORAL TABLET 2 tabs daily for 3 days 1 tab d aily for 3 days PREDNISONE 38427545284 No Longer Active Becky Sell TURBOGENERATOR OPERATOR Active GLIMEPIRIDE 4 MG ORAL TABLET 1 tablet by mouth twice daily f or diabetes GLIMEPIRIDE 63343916679 Active Mitch Urbina DO Active GLIMEPIRIDE 2 MG ORAL TABLET 1 po BID GLIMEPI RIDE 86548555594 No Longer Active Mitch Urbina DO Active PROVIGIL 200 MG ORAL TABLET 1/2 tab po q day MODA FINIL 80129513514 Active Maria Rivas RN Active FAMOTIDINE 20 MG ORAL TABLET by mouth twice a day 2017 FAMOTIDINE 89745440347 No Longer Active Mithc Urbina DO Active COLCRYS 0.6 MG ORAL TABLET 1 tab qid prn gout C OLCHICINE 96493832962 No Longer Active Mitch Urbina DO Active KEFLEX 500 MG ORAL CAPSULE 1 po qid CEPHALEXI N 05644590033 No Longer Active Mitch Urbina DO Active AMLODIPINE BESYLATE 5 MG ORAL TABLET 1 tablet by mouth daily 201 01/20/04 AMLODIPINE BESYLATE 01091534847 No Longer Active Joe fulton APRN Active MECLIZINE HCL 25 MG ORAL TABLET 1 po tid 3 days, then 1/2 ta b tid 3 days MECLIZINE HCL 09980478950 No Longer Active Corey SEGURA Active ALLOPURINOL 300 MG ORAL TABLET Take 1 tablet by mouth daily 2012 ALLOPURINOL 20373686859 No Longer Active Corey SEGURA Active CLONIDINE HCL 0.1 MG ORAL TABLET 1 po bid 7 days, then 1/2 t ab po bid 7 days CLONIDINE HCL 46689135891 No Longer Active Corey SEGURA Active COUMADIN 4 MG ORAL TABLET 1 tablet daily WARFAR IN SODIUM 81408533029 No Longer Active Corey SEGURA Active POLYTRIM 44810-6.1 UNIT/ML-% OPHTHALMIC SOLUTION 1 rui p in affected eye every 3 hours while awake x 7 days POLYMYXIN B-TRIMETHOP RIM 46152267419 No Longer Active Corey SEGURA Active LOSARTAN POTASSIUM-HCTZ 100-12.5 MG ORAL TABLET 1 by m outh daily for high blood pressure LOSARTAN POTASSIUM-HCTZ 81583006952 No Longer A ctive Mitch Urbina DO Active LISINOPRIL-HYDROCHLOROTHIAZIDE 20-12.5 MG ORAL TABLET 1 tab by m outh daily LISINOPRIL-HYDROCHLOROTHIAZIDE 31086270554 No Longer Active Mitch Urbina DO Active LISINOPRIL 20 MG ORAL TABLET 1 tab po at HS LIS INOPRIL 10294744215 No Longer Active Mitch Urbina DO Active COUMADIN 5 MG ORAL TABLET 1 by mouth every other day 2 WARFARIN SODIUM 08033306768 No Longer Active Mitch Urbina DO Active COUMADIN 6 MG ORAL TABLET 1 by mouth every other day 2 WARFARIN SODIUM 26867883825 No Longer Active Mitch Urbina DO Active SIMVASTATIN 40 MG ORAL TABLET 1 tab daily at bedtime SIMVASTATIN 26794558420 Active Maria Rivas RN Active SIMVASTATIN 20 MG ORAL TABLET 1 tab daily at bedtime 2 SIMVASTATIN 00561517234 No Longer Active Mitch Urbina DO Active LOVENOX 100 MG/ML SUBCUTANEOUS SOLUTION One injection twice a da y ENOXAPARIN SODIUM 18898866803 No Longer Active Carmine Yusuf MD Active JANUVIA 100 MG ORAL TABLET 1/2 by mouth every day 2011 SITAGLIPTIN PHOSPHATE 54641022264 No Longer Active Bijal Segal RN Acti ve METFORMIN HCL 500 MG ORAL TABLET 2 by mouth twice daily METFORMIN HCL 99144389125 No Longer Active Renee Oconnor LPN Active COLCRYS 0.6 MG ORAL TABLET 1 po q 6 hours prn gout pain COLCHICINE 54910611544 No Longer Active Camila Reese Active LISINOPRIL 5 MG ORAL TABLET 1 by mouth every day 11/17 LISINOPRIL 35655023182 No Longer Active Nguyen Ana Active KLOR-CON 20 MEQ ORAL PACKET Take one by mouth daily 09/10/08 POTASSIUM CHLORIDE 68105688981 No Longer Active Nguyen Perez Active FUROSEMIDE 40 MG ORAL TABLET 1 by mouth daily F UROSEMIDE 67778546944 No Longer Active Nguyen Perez Active PROVIGIL 100 MG ORAL TABLET Take one by mouth daily 08/20/04 MODAFINIL 26201931085 No Longer Active Mitch Urbina DO Active BACTRIM DS 800-160 MG ORAL TABLET 1 tab by mouth twice daily 201 10/19/09 TRIMETHOPRIM-SULFAMETHOXAZOLE 62112877734 No Longer Active C alberto Hays MD Active ADULT ASPIRIN LOW STRENGTH 81 MG ORAL TABLET DISINTEGR ATING 1 by mouth every daily ASPIRIN 54954579515 Active Mitch Urbina DO Ac tive BACTRIM DS 800-160 MG ORAL TABLET 1 tab by mouth twice daily 201 10/19/09 BACTRIM DS 800-160 MG ORAL TABLET 266314 TRIMETHOPRIM-SULFAMETHOXAZOLE Inactive PROVIGIL 100 MG ORAL TABLET Take one by mouth daily 20 08/20/04 PROVIGIL 100 MG ORAL TABLET 060863 MODAFINIL Inactive FUROSEMIDE 40 MG ORAL TABLET 1 by mouth daily FUROSEMIDE 40 MG ORAL TABLET 758222 FUROSEMIDE Inactive KLOR-CON 20 MEQ ORAL PACKET Take one by mouth daily 09/10/08 KLOR- CON 20 MEQ ORAL PACKET 6524815 POTASSIUM CHLORIDE Inactive LISINOPRIL 5 MG ORAL TABLET 1 by mouth every day 11/17 LISINOPRIL 5 MG ORAL TABLET 186114 LISINOPRIL Inactive COLCRYS 0.6 MG ORAL TABLET 1 po q 6 hours prn gout pain COLCRYS 0.6 MG ORAL TABLET 786441 COLCHICINE Inactive JANUVIA 100 MG ORAL TABLET 1/2 by mouth every day 2011 JANUVIA 100 MG ORAL TABLET SITAGLIPTIN PHOSPHATE Inactive SIMVASTATIN 20 MG ORAL TABLET 1 tab daily at bedtime 2 SIMVASTATIN 20 MG ORAL TABLET 512679 SIMVASTATIN Inactive COUMADIN 6 MG ORAL TABLET 1 by mouth every other day 2 COUMADIN 6 MG ORAL TABLET 089666 WARFARIN SODIUM Inactive COUMADIN 5 MG ORAL TABLET 1 by mouth every other day 2 COUMADIN 5 MG ORAL TABLET 833659 WARFARIN SODIUM Inactive LISINOPRIL 20 MG ORAL TABLET 1 tab po at HS LISINOPRIL 20 MG ORAL TABLET 049836 LISINOPRIL Inactive LISINOPRIL-HYDROCHLOROTHIAZIDE 20-12.5 MG ORAL TABLET 1 tab by m outh daily LISINOPRIL-HYDROCHLOROTHIAZIDE 20-12.5 MG ORAL TABLET 016574 LISINOPRIL-HYDROCHLOROTHIAZIDE Inactive POLYTRIM 93822-5.1 UNIT/ML-% OPHTHALMIC SOLUTION 1 rui p in affected eye every 3 hours while awake x 7 days POLYTRIM 1000 0-0.1 UNIT/ML-% OPHTHALMIC SOLUTION 063799 POLYMYXIN B-TRIMETHOPRIM Inactive COUMADIN 4 MG ORAL TABLET 1 tablet daily COUMADIN 4 MG ORAL TABLET 016554 WARFARIN SODIUM Inactive CLONIDINE HCL 0.1 MG ORAL TABLET 1 po bid 7 days, then 1/2 t ab po bid 7 days CLONIDINE HCL 0.1 MG ORAL TABLET 706292 CLONIDIN E HCL Inactive ALLOPURINOL 300 MG ORAL TABLET Take 1 tablet by mouth daily 2012 ALLOPURINOL 300 MG ORAL TABLET 230958 ALLOPURINOL I nactive MECLIZINE HCL 25 MG ORAL TABLET 1 po tid 3 days, then 1/2 ta b tid 3 days MECLIZINE HCL 25 MG ORAL TABLET 046077 MECLIZINE HCL Inactive AMLODIPINE BESYLATE 5 MG ORAL TABLET 1 tablet by mouth daily 201 01/20/04 AMLODIPINE BESYLATE 5 MG ORAL TABLET 192315 AMLODIPINE BESYLATE Inactive KEFLEX 500 MG ORAL CAPSULE 1 po qid K EFLEX 500 MG ORAL CAPSULE 026428 CEPHALEXIN Inactive COLCRYS 0.6 MG ORAL TABLET 1 tab qid prn gout COLCRYS 0.6 MG ORAL TABLET 097840 COLCHICINE Inactive FAMOTIDINE 20 MG ORAL TABLET by mouth twice a day 2017 FAMOTIDINE 20 MG ORAL TABLET 424512 FAMOTIDINE Inactive GLIMEPIRIDE 2 MG ORAL TABLET 1 po BID GLIMEPIRIDE 2 MG ORAL TABLET 069711 GLIMEPIRIDE Inactive AMLODIPINE BESYLATE 5 MG ORAL TABLET 1 tablet by mouth daily 201 05/19/02 AMLODIPINE BESYLATE 5 MG ORAL TABLET 393816 AMLODIPINE BESYLATE Inactive MITIGARE 0.6 MG ORAL CAPSULE 2 capsules at onset of go ut pain, then take one capsule at 1 hour if symptoms persist. M ITIGARE 0.6 MG ORAL CAPSULE 6057335 COLCHICINE Inactive LOVENOX 100 MG/ML SUBCUTANEOUS SOLUTION One injection twice a da y LOVENOX 100 MG/ML SUBCUTANEOUS SOLUTION 975136 ENOXAPAR IN SODIUM Inactive PREDNISONE 20 MG ORAL TABLET 2 tabs daily for 3 days 1 tab d aily for 3 days PREDNISONE 20 MG ORAL TABLET 253335 PREDNISONE Inactive KEFLEX 500 MG ORAL CAPSULE 1 capsule by mouth three times da rocky x10 days KEFLEX 500 MG ORAL CAPSULE 620715 CEPHALEXIN I nactive Advance Directives Directive Description [...] - Chem istry sodium, serum 138 mmol/L 075-748 6406/11/07 potassium, serum 4.5 mmol/L 3.5-5.2 chloride, serum [...] Panel - Chemistry sodium, serum 140 mmol/L 189-408 5034/11/01 carbon dioxide, venous blood 28.6 mmol/L 21.0-32 [...] Lab Alkaline phosphatase 49 50-136 Lab Report: HGBA1C, Comp. Metabolic Pane l, CBC, Magnesium - Chemistry hemoglobin A1C, blood, as % of total hemoglobin 6.1 % 4.3-6.0 sodium, serum 139 mmol/L 737-329 2207/04/06 carbon dioxide, venous blood 29.0 mmol/L 21.0-32 .0 potassium, serum 4.8 mmol/L 3.5-5.2 chloride, serum 103 mmol/L 98-107 blood glucose 124 mg/dL 65-95 urea nitrogen, blood 25 mg/dL 7-18 creatinine, serum 0.86 mg/dL 0.60-1.30 Estimated Glomerular Filtration Rate (calc) 94 (?) mL/min/1.73m2 = OR > 60 mL/min alanine aminotransferase (SGPT), serum 19 U/L 12-78 aspartate aminotransferase (SGOT), serum 28 U/L 19-43 calcium, serum 10.2 mg/dL 8.5-10.1 bilirubin, serum, total 0.90 mg/dL 0.00-1.00 Lab Report: HGBA1C, Comp. Metabolic Pane l, CBC, Magnesium - Hematology leukocyte count, blood 7.5 10^3/MM^3 10*3/mm3 4.6-10.2 erythrocyte (RBC) count 4.91 10^6/MM^3 10*6/mm3 4.50-6.5 0 hemoglobin, blood 12.8 g/dL 14.0-18.0 hematocrit, blood 40.5 % 40.0-54.0 mean corpuscular volume, RBC 83 fL 80-97 mean corpuscular hemoglobin, RBC 26.1 pg 27. 0-31.2 mean corpuscular hemoglobin concentration, RBC 31.5 G/DL % 31.8-35.4 red blood cell distribution width 15.1 % 11 .6-14.8 platelet count 197 10^3/MM^3 10*3/mm3 142-424 Lab Report: HGBA1C, Comp. Metabolic Pane l, CBC, Magnesium - Lab Alkaline phosphatase 44 50-136 Encounters Code Encounter Date Provider Facility CPT-94958 [id number] Vst-Est Level IV 11:57:44 CDT Bru robinson W [facility] CPT-62250 [id number] Vst-Est Level IV 16:21:22 CDT Bru ce W [facility] CPT-10419 Level 3 Est. Patient 15:18:36 CDT Becky anderson APRN [facility] CPT-71195 51370-Oqc Vst-Est Level IV 10:06:35 CDT Bru ce W [facility] CPT-08923 25001-Hpl Vst-Est Level IV 10:52:00 SUBSORTER Bru robinson W [facility] CPT-43966 Level 3 Est. Patient 18:25:53 CDT Mitch Castellano [facility] CPT-83821 Level 3 Est. Patient 19:43:34 CDT Mitch W Nona luis [facility] CPT-44534 Level 4 Est. Patient 09:30:18 CDT Mitch luis [facility] CPT-09753 Level 3 Est. Patient 15:10:14 CDT Devonjustincarlitos kamara [facility]-66496 Level 3 Est. Patient 15:03:46 CDT Devonsonya Jason [facility]-59354 Level 3 Est. Patient 14:21:06 CDT Mitch luis [facility] CPT-61319 Level 3 Est. Patient 14:52:06 CDT Joe Jason [facility]-12108 Level 3 Est. Patient 09:34:30 SUBSORTER Mitch luis [facility]-25037 Level 3 Est. Patient 09:37:15 CDT Mitch luis [facility] CPT-91600 Level 3 Est. Patient 17:01:00 SUBSORTER Mitch luis [facility] CPT-66570 Level 3 Est. Patient 13:53:19 SUBSORTER Mitch luis [facility] CPT-33337 Level 3 Est. Patient 19:19:37 SUBSORTER Mitch luis [facility] CPT-84324 Level 3 Est. Patient 13:25:53 SUBSORTER Tavo toure MD [facility] CPT-62748 Level 3 Est. Patient 18:17:28 CDT Mitch luis [facility] CPT-59487 Level 3 Est. Patient 15:22:57 CDT Mitch luis [facility] CPT-47749 Level 3 Est. Patient 18:21:50 CDT Mitch Ambrose L janelle [facility] CPT-62457 Level 3 Est. Patient 18:20:38 CDT Mitch luis [facility] CPT-41178 Level 3 Est. Patient 15:37:55 CDT Mitch luis [facility] CPT-92050 Level 2 Est. Patient 15:54:44 CDT Carmine benton MD [facility] CPT-39527 Level 3 Est. Patient 21:46:01 SUBSORTER Mitch Ambrose Nona luis [facility] CPT-01599 Level 3 Est. Patient 22:15:50 CDT Mitch luis [facility] CPT-29343 Level 3 Est. Patient 10:48:15 CDT Mitch luis [facility] CPT-57303 Level 3 Est. Patient 23:20:57 CDT Tavo toure MD [facility] CPT-94478 Level 3 Est. Patient 16:26:13 CDT Mitch Castellano janelle [facility] Procedures Code Procedure Name Date Entry Date Standard Desc ription CPT-40864 EKG Trac and Interp - XRAY USE ONLY 1 2:03:24 CDT CPT-21956 Venipuncture Draw Fee 12:01:15 CDT CPT-[id number] () Dilated retinal eye exam w/interp fur operator/pr specialist documented 11:50:34 CDT CPT-27655 Venipuncture Draw Fee 11:20:39 SUBSORTER CPT-59520 Venipuncture Draw Fee 18:03:01 SUBSORTER CPT-58424 Venipuncture Draw Fee 10:44:42 SUBSORTER CPT-04274 Venipuncture Draw Fee 14:46:55 SUBSORTER CPT-27815 Venipuncture Draw Fee 08:26:21 CDT CPT-86797 Venous Duplex Left Leg XRAY USE ONLY 10:43:10 CDT CPT-05485 Venipuncture Draw Fee 17:04:55 CDT CPT-74812 Venipuncture Draw Fee 17:20:50 CDT CPT-45822 Venipuncture Draw Fee 18:00:48 CDT CPT-33649 Venipuncture Draw Fee 14:56:20 CDT CPT-JTINJ Asp/Joint Injection 18:47:02 CDT CPT-40411 Venipuncture Draw Fee 09:26:17 CDT CPT-57046 PT/INR - LAB USE ONLY 13:32:49 SUBSORTER CPT-13739 Venipuncture Draw Fee 13:32:49 SUBSORTER CPT-04853 PT/INR - LAB USE ONLY 10:34:49 SUBSORTER CPT-92972 Venipuncture Draw Fee 10:34:48 SUBSORTER CPT-11563 PT/INR - LAB USE ONLY 09:22:03 SUBSORTER CPT-05793 Venipuncture Draw Fee 09:22:02 SUBSORTER CPT-18808 Hemoccult IFOBT - LAB USE ONLY 10:27:22 CDT CPT-38090 Venipuncture Draw Fee 08:27:08 CDT CPT-09855 Liver Profile - LAB USE ONLY 08:27:07 CDT 2 CPT-86345 Microalbumin - LAB USE ONLY 08:27:07 CDT 20 25/05/09 CPT-80470 PT/INR - LAB USE ONLY 08:27:07 CDT CPT-35586 HGBA1C - LAB USE ONLY 08:27:07 CDT CPT-62913 CBC - LAB USE ONLY 08:27:07 CDT CPT-64129 Venipuncture Draw Fee 11:09:14 CDT CPT-27918 Venipuncture Draw Fee 08:32:21 SUBSORTER CPT-14675 Venipuncture Draw Fee 09:38:56 SUBSORTER CPT-56540 No Charge Offi Visit 21:36:07 CDT 1 CPT-65334 Venipuncture Draw Fee 10:13:28 SUBSORTER CPT-40431 Venipuncture Draw Fee 08:31:11 CDT CPT-74427 Aspir/Inject Med Joint 18:17:28 CDT CPT-57777 Venipuncture Draw Fee 10:13:30 CDT CPT-62890 Venipuncture Draw Fee 08:31:43 SUBSORTER CPT-JTINJ Joint Injection 18:34:50 CDT CPT-55120 Knee 3V 12:25:09 CDT CPT-09804 Venipuncture Draw Fee 12:15:57 CDT CPT-060 Medical Surveillance Exam 21:31:43 CDT 2011 CPT-91514 Venipuncture Draw Fee 08:32:05 SUBSORTER CPT-OV Office Visit 18:19:06 CDT
--- OUTSIDE RECORDS SUMMARY | 2020-01-18 14:11 | XMS REPORT | Clinical Summary ---
Author Author Admin, Mitch Leon Organization [facility] [employer] Address Unknown Phone Unavailable Allergies, Adverse Reactions, [...] ulcer, great toe, left 707.15 Active Mitch Urbnia DO Ulcer of other part of foot [...] TABLET 1 po daily M AGNESIUM OXIDE 46573651598 Active Ruchi DUARTE Active METFORMIN HCL ER TABS 500MG TAKE 2 TABLETS TWICE A DAY METFORMIN HCL 80657064588 Active Ruchi DUARTE Active MITIGARE 0.6 MG ORAL CAPSULE 2 capsules at onset of go ut pain, then take one capsule at 1 hour if symptoms persist. COLCHICIN E 30980896599 No Longer Active Mitch Urbina DO Active MINOXIDIL TABS 2.5MG TAKE 1 TABLET TWICE A DAY FOR HIGH BLOO D PRESSURE MINOXIDIL 96366990442 Active Mitch Urbina DO Ac tive JANUVIA TABS 50MG TAKE 1 TABLET DAILY SITAGLIPT IN PHOSPHATE 34938867013 Active Mitch Urbina DO Active INVOKANA TABS 100MG TAKE 1 TABLET DAILY CANAGLIFL OZIN 79247556223 Active Mitch Urbina DO Active AMLODIPINE BESYLATE 5 MG ORAL TABLET 1 tablet by mouth daily 201 05/19/02 AMLODIPINE BESYLATE 41293946913 No Longer Active Maria Briones Active WARFARIN TABS 1MG TAKE 2 TABLETS (2 MG) DAILY WITH THE 5 MG TABLET TO EQUAL 7 MG DAILY WARFARIN SODIUM 61936365088 Active Maria Briones Active WARFARIN SODIUM 5 MG TABS TAKE 1 TABLET DAILY W ARFARIN SODIUM 52655800949 Active Maria Rivas RN Active KEFLEX 500 MG ORAL CAPSULE 1 capsule by mouth three times da rocky x10 days CEPHALEXIN 43642949294 No Longer Active Maria landaverde RN Active METOPROLOL TARTRATE TABS 50MG TAKE 1 TABLET TWICE A DAY ([facility]) METOPROLOL TARTRATE 94586817354 Active Maria Briones Active DOXAZOSIN MESYLATE 2 MG ORAL TABLET 1 po q day for pr ostate and blood pressure DOXAZOSIN MESYLATE 94681699899 Active Mitch Urbina DO Active LOSARTAN TABS 100MG TAKE 1 TABLET DAILY FOR BLOOD PRESSURE LOSARTAN POTASSIUM 47174543662 Active Maria Rivas RN Active FLUTICASONE PROPIONATE 50 MCG/ACT NASAL SUSPENSION 1 s pray each nostril twice daily for 1 week, then once daily FLUTICASONE IN OPIONATE 43089714906 Active Becky Sell METEOROLOGICAL EQUIPMENT REPAIRER Active PREDNISONE 20 MG ORAL TABLET 2 tabs daily for 3 days 1 tab d aily for 3 days PREDNISONE 89139485838 No Longer Active Becky Sell METEOROLOGICAL EQUIPMENT REPAIRER Active GLIMEPIRIDE 4 MG ORAL TABLET 1 tablet by mouth twice daily f or diabetes GLIMEPIRIDE 64730822917 Active Mitch Urbina DO Active GLIMEPIRIDE 2 MG ORAL TABLET 1 po BID GLIMEPI RIDE 41960291572 No Longer Active Mitch Urbina DO Active PROVIGIL 200 MG ORAL TABLET 1/2 tab po q day MODA FINIL 76838281260 Active Maria Rivas RN Active FAMOTIDINE 20 MG ORAL TABLET by mouth twice a day 2017 FAMOTIDINE 84845113285 No Longer Active Mitch Urbina DO Active COLCRYS 0.6 MG ORAL TABLET 1 tab qid prn gout C OLCHICINE 19018661218 No Longer Active Mitch Urbina DO Active KEFLEX 500 MG ORAL CAPSULE 1 po qid CEPHALEXI N 96432244796 No Longer Active Mitch Urbina DO Active AMLODIPINE BESYLATE 5 MG ORAL TABLET 1 tablet by mouth daily 201 01/20/04 AMLODIPINE BESYLATE 00126174943 No Longer Active Joe fulton APRN Active MECLIZINE HCL 25 MG ORAL TABLET 1 po tid 3 days, then 1/2 ta b tid 3 days MECLIZINE HCL 53753794632 No Longer Active Corey SEGURA Active ALLOPURINOL 300 MG ORAL TABLET Take 1 tablet by mouth daily 2012 ALLOPURINOL 45802420513 No Longer Active Corey SEGURA Active CLONIDINE HCL 0.1 MG ORAL TABLET 1 po bid 7 days, then 1/2 t ab po bid 7 days CLONIDINE HCL 60970268276 No Longer Active Corey SEGURA Active COUMADIN 4 MG ORAL TABLET 1 tablet daily WARFAR IN SODIUM 75254840136 No Longer Active Corey SEGURA Active POLYTRIM 28865-8.1 UNIT/ML-% OPHTHALMIC SOLUTION 1 rui p in affected eye every 3 hours while awake x 7 days POLYMYXIN B-TRIMETHOP RIM 78768325317 No Longer Active Corey SEGURA Active LOSARTAN POTASSIUM-HCTZ 100-12.5 MG ORAL TABLET 1 by m outh daily for high blood pressure LOSARTAN POTASSIUM-HCTZ 74831131982 No Longer A ctive Mitch Urbina DO Active LISINOPRIL-HYDROCHLOROTHIAZIDE 20-12.5 MG ORAL TABLET 1 tab by m outh daily LISINOPRIL-HYDROCHLOROTHIAZIDE 28595335060 No Longer Active Mitch Urbina DO Active LISINOPRIL 20 MG ORAL TABLET 1 tab po at HS LIS INOPRIL 19868256491 No Longer Active Mitch Urbina DO Active COUMADIN 5 MG ORAL TABLET 1 by mouth every other day 2 WARFARIN SODIUM 92135257945 No Longer Active Mitch Urbina DO Active COUMADIN 6 MG ORAL TABLET 1 by mouth every other day 2 WARFARIN SODIUM 69602200335 No Longer Active Mitch Urbina DO Active SIMVASTATIN 40 MG ORAL TABLET 1 tab daily at bedtime SIMVASTATIN 69373416528 Active Maria Rivas RN Active SIMVASTATIN 20 MG ORAL TABLET 1 tab daily at bedtime 2 SIMVASTATIN 91861733694 No Longer Active Mitch Urbina DO Active LOVENOX 100 MG/ML SUBCUTANEOUS SOLUTION One injection twice a da y ENOXAPARIN SODIUM 08508220382 No Longer Active Carmine Yusuf MD Active JANUVIA 100 MG ORAL TABLET 1/2 by mouth every day 2011 SITAGLIPTIN PHOSPHATE 05715740469 No Longer Active Bijal Segal RN Acti ve METFORMIN HCL 500 MG ORAL TABLET 2 by mouth twice daily METFORMIN HCL 95990771963 No Longer Active Renee Oconnor LPN Active COLCRYS 0.6 MG ORAL TABLET 1 po q 6 hours prn gout pain COLCHICINE 13246504739 No Longer Active aCmila Reese Active LISINOPRIL 5 MG ORAL TABLET 1 by mouth every day 11/17 LISINOPRIL 00837000905 No Longer Active Nguyen Ana Active KLOR-CON 20 MEQ ORAL PACKET Take one by mouth daily 09/10/08 POTASSIUM CHLORIDE 31612907045 No Longer Active Nguyen Perez Active FUROSEMIDE 40 MG ORAL TABLET 1 by mouth daily F UROSEMIDE 63970040820 No Longer Active Nguyen Perez Active PROVIGIL 100 MG ORAL TABLET Take one by mouth daily 08/20/04 MODAFINIL 87606241489 No Longer Active Mitch Urbina DO Active BACTRIM DS 800-160 MG ORAL TABLET 1 tab by mouth twice daily 201 10/19/09 TRIMETHOPRIM-SULFAMETHOXAZOLE 95464120398 No Longer Active C alberto Hays MD Active ADULT ASPIRIN LOW STRENGTH 81 MG ORAL TABLET DISINTEGR ATING 1 by mouth every daily ASPIRIN 66984287164 Active Mitch Urbina DO Ac tive BACTRIM DS 800-160 MG ORAL TABLET 1 tab by mouth twice daily 201 10/19/09 BACTRIM DS 800-160 MG ORAL TABLET 359929 TRIMETHOPRIM-SULFAMETHOXAZOLE Inactive PROVIGIL 100 MG ORAL TABLET Take one by mouth daily 20 08/20/04 PROVIGIL 100 MG ORAL TABLET 178007 MODAFINIL Inactive FUROSEMIDE 40 MG ORAL TABLET 1 by mouth daily FUROSEMIDE 40 MG ORAL TABLET 749261 FUROSEMIDE Inactive KLOR-CON 20 MEQ ORAL PACKET Take one by mouth daily 09/10/08 KLOR- CON 20 MEQ ORAL PACKET 3961720 POTASSIUM CHLORIDE Inactive LISINOPRIL 5 MG ORAL TABLET 1 by mouth every day 11/17 LISINOPRIL 5 MG ORAL TABLET 155773 LISINOPRIL Inactive COLCRYS 0.6 MG ORAL TABLET 1 po q 6 hours prn gout pain COLCRYS 0.6 MG ORAL TABLET 145162 COLCHICINE Inactive JANUVIA 100 MG ORAL TABLET 1/2 by mouth every day 2011 JANUVIA 100 MG ORAL TABLET SITAGLIPTIN PHOSPHATE Inactive SIMVASTATIN 20 MG ORAL TABLET 1 tab daily at bedtime 2 SIMVASTATIN 20 MG ORAL TABLET 614307 SIMVASTATIN Inactive COUMADIN 6 MG ORAL TABLET 1 by mouth every other day 2 COUMADIN 6 MG ORAL TABLET 540496 WARFARIN SODIUM Inactive COUMADIN 5 MG ORAL TABLET 1 by mouth every other day 2 COUMADIN 5 MG ORAL TABLET 855984 WARFARIN SODIUM Inactive LISINOPRIL 20 MG ORAL TABLET 1 tab po at HS LISINOPRIL 20 MG ORAL TABLET 035385 LISINOPRIL Inactive LISINOPRIL-HYDROCHLOROTHIAZIDE 20-12.5 MG ORAL TABLET 1 tab by m outh daily LISINOPRIL-HYDROCHLOROTHIAZIDE 20-12.5 MG ORAL TABLET 202325 LISINOPRIL-HYDROCHLOROTHIAZIDE Inactive POLYTRIM 11199-8.1 UNIT/ML-% OPHTHALMIC SOLUTION 1 rui p in affected eye every 3 hours while awake x 7 days POLYTRIM 1000 0-0.1 UNIT/ML-% OPHTHALMIC SOLUTION 839022 POLYMYXIN B-TRIMETHOPRIM Inactive COUMADIN 4 MG ORAL TABLET 1 tablet daily COUMADIN 4 MG ORAL TABLET 340907 WARFARIN SODIUM Inactive CLONIDINE HCL 0.1 MG ORAL TABLET 1 po bid 7 days, then 1/2 t ab po bid 7 days CLONIDINE HCL 0.1 MG ORAL TABLET 346364 CLONIDIN E HCL Inactive ALLOPURINOL 300 MG ORAL TABLET Take 1 tablet by mouth daily 2012 ALLOPURINOL 300 MG ORAL TABLET 963445 ALLOPURINOL I nactive MECLIZINE HCL 25 MG ORAL TABLET 1 po tid 3 days, then 1/2 ta b tid 3 days MECLIZINE HCL 25 MG ORAL TABLET 927881 MECLIZINE HCL Inactive AMLODIPINE BESYLATE 5 MG ORAL TABLET 1 tablet by mouth daily 201 01/20/04 AMLODIPINE BESYLATE 5 MG ORAL TABLET 189426 AMLODIPINE BESYLATE Inactive KEFLEX 500 MG ORAL CAPSULE 1 po qid K EFLEX 500 MG ORAL CAPSULE 115938 CEPHALEXIN Inactive COLCRYS 0.6 MG ORAL TABLET 1 tab qid prn gout COLCRYS 0.6 MG ORAL TABLET 211316 COLCHICINE Inactive FAMOTIDINE 20 MG ORAL TABLET by mouth twice a day 2017 FAMOTIDINE 20 MG ORAL TABLET 263426 FAMOTIDINE Inactive GLIMEPIRIDE 2 MG ORAL TABLET 1 po BID GLIMEPIRIDE 2 MG ORAL TABLET 746831 GLIMEPIRIDE Inactive AMLODIPINE BESYLATE 5 MG ORAL TABLET 1 tablet by mouth daily 201 05/19/02 AMLODIPINE BESYLATE 5 MG ORAL TABLET 389746 AMLODIPINE BESYLATE Inactive MITIGARE 0.6 MG ORAL CAPSULE 2 capsules at onset of go ut pain, then take one capsule at 1 hour if symptoms persist. M ITIGARE 0.6 MG ORAL CAPSULE 8308637 COLCHICINE Inactive LOVENOX 100 MG/ML SUBCUTANEOUS SOLUTION One injection twice a da y LOVENOX 100 MG/ML SUBCUTANEOUS SOLUTION 794276 ENOXAPAR IN SODIUM Inactive PREDNISONE 20 MG ORAL TABLET 2 tabs daily for 3 days 1 tab d aily for 3 days PREDNISONE 20 MG ORAL TABLET 068354 PREDNISONE Inactive KEFLEX 500 MG ORAL CAPSULE 1 capsule by mouth three times da rocky x10 days KEFLEX 500 MG ORAL CAPSULE 544400 CEPHALEXIN I nactive Advance Directives Directive Description [...] diastolic, second observation 82 m m[Hg] BP amne blood pressure, diastolic, repeated by physician 82 [...] - Chem istry sodium, serum 138 mmol/L 959-721 9306/11/07 potassium, serum 4.5 mmol/L 3.5-5.2 chloride, serum [...] Panel - Chemistry sodium, serum 140 mmol/L 092-274 2047/11/01 carbon dioxide, venous blood 28.6 mmol/L 21.0-32 [...] 6.1 % 4.3-6.0 sodium, serum 139 mmol/L 590-377 6806/04/06 carbon dioxide, venous blood 29.0 mmol/L 21.0-32 [...] 50-136 Encounters Code Encounter Date Provider Facility CPT-31082 [id number] Vst-Est Level IV 11:57:44 CDT Bru robinson W [facility] CPT-97436 [id number] Vst-Est Level IV 16:21:22 CDT Bru ce W [facility] CPT-02438 Level 3 Est. Patient 15:18:36 CDT Becky anderson APRN [facility] CPT-40580 [id number] Vst-Est Level IV 10:06:35 CDT Bru ce W [facility] CPT-44146 [id number] Vst-Est Level IV 10:52:00 C DEVELOPER Bru robinson W [facility] CPT-27776 Level 3 Est. Patient 18:25:53 CDT Mitch Castellano [facility] CPT-20880 Level 3 Est. Patient 19:43:34 CDT Mitch W Nona l[facility] CPT-55238 Level 4 Est. Patient 09:30:18 CDT Mitch luis [facility] CPT-98548 Level 3 Est. Patient 15:10:14 CDT Devonjustincarlitos kamara [facility]-01952 Level 3 Est. Patient 15:03:46 CDT Devonsonya Jason [facility]-65585 Level 3 Est. Patient 14:21:06 CDT Mitch luis [facility] CPT-32878 Level 3 Est. Patient 14:52:06 CDT Joe Jason [facility]-56225 Level 3 Est. Patient 09:34:30 C DEVELOPER Mitch luis [facility]-65694 Level 3 Est. Patient 09:37:15 CDT Mitch luis [facility] CPT-56287 Level 3 Est. Patient 17:01:00 C DEVELOPER Mitch luis [facility] CPT-89912 Level 3 Est. Patient 13:53:19 C DEVELOPER Mitch luis [facility] CPT-55644 Level 3 Est. Patient 19:19:37 C DEVELOPER Mitch luis [facility] CPT-81239 Level 3 Est. Patient 13:25:53 C DEVELOPER Tavo toure MD [facility] CPT-47378 Level 3 Est. Patient 18:17:28 CDT Mitch luis [facility] CPT-04842 Level 3 Est. Patient 15:22:57 CDT Mitch luis [facility] CPT-24250 Level 3 Est. Patient 18:21:50 CDT Mitch Ambrose L janelle [facility] CPT-54694 Level 3 Est. Patient 18:20:38 CDT Mitch luis [facility] CPT-64166 Level 3 Est. Patient 15:37:55 CDT Mitch luis [facility] CPT-94566 Level 2 Est. Patient 15:54:44 CDT Carmine benton MD [facility] CPT-53909 Level 3 Est. Patient 21:46:01 C DEVELOPER Mitch Ambrose Nona l[facility] CPT-69886 Level 3 Est. Patient 22:15:50 CDT Mitch luis [facility] CPT-94757 Level 3 Est. Patient 10:48:15 CDT Mitch luis [facility] CPT-37181 Level 3 Est. Patient 23:20:57 CDT Tavo toure MD [facility] CPT-44534 Level 3 Est. Patient 16:26:13 CDT Mitch Castellano [facility] Procedures Code Procedure Name Date Entry Date Standard Desc ription CPT-59408 EKG Trac and Interp - XRAY USE ONLY 1 2:03:24 CDT CPT-97998 Venipuncture Draw Fee 12:01:15 CDT [id number] () Dilated retinal eye exam w/interp poultry scientist/box toe stitcher documented 11:50:34 CDT CPT-12823 Venipuncture Draw Fee 11:20:39 C DEVELOPER CPT-86163 Venipuncture Draw Fee 18:03:01 C DEVELOPER CPT-47545 Venipuncture Draw Fee 10:44:42 C DEVELOPER CPT-22111 Venipuncture Draw Fee 14:46:55 C DEVELOPER CPT-10499 Venipuncture Draw Fee 08:26:21 CDT CPT-83364 Venous Duplex Left Leg XRAY USE ONLY 10:43:10 CDT CPT-91723 Venipuncture Draw Fee 17:04:55 CDT CPT-03675 Venipuncture Draw Fee 17:20:50 CDT CPT-21011 Venipuncture Draw Fee 18:00:48 CDT CPT-80080 Venipuncture Draw Fee 14:56:20 CDT CPT-JTINJ Asp/Joint Injection 18:47:02 CDT CPT-51695 Venipuncture Draw Fee 09:26:17 CDT CPT-33283 PT/INR - LAB USE ONLY 13:32:49 C DEVELOPER CPT-89807 Venipuncture Draw Fee 13:32:49 C DEVELOPER CPT-44022 PT/INR - LAB USE ONLY 10:34:49 C DEVELOPER CPT-97169 Venipuncture Draw Fee 10:34:48 C DEVELOPER CPT-44783 PT/INR - LAB USE ONLY 09:22:03 C DEVELOPER CPT-28494 Venipuncture Draw Fee 09:22:02 C DEVELOPER CPT-26391 Hemoccult IFOBT - LAB USE ONLY 10:27:22 CDT CPT-40192 Venipuncture Draw Fee 08:27:08 CDT CPT-48239 Liver Profile - LAB USE ONLY 08:27:07 CDT 2 CPT-05088 Microalbumin - LAB USE ONLY 08:27:07 CDT 20 25/05/09 CPT-02852 PT/INR - LAB USE ONLY 08:27:07 CDT CPT-59628 HGBA1C - LAB USE ONLY 08:27:07 CDT CPT-84372 CBC - LAB USE ONLY 08:27:07 CDT CPT-76652 Venipuncture Draw Fee 11:09:14 CDT CPT-00928 Venipuncture Draw Fee 08:32:21 C DEVELOPER CPT-50885 Venipuncture Draw Fee 09:38:56 C DEVELOPER CPT-52998 No Charge Offi Visit 21:36:07 CDT 1 CPT-54903 Venipuncture Draw Fee 10:13:28 C DEVELOPER CPT-46172 Venipuncture Draw Fee 08:31:11 CDT CPT-42429 Aspir/Inject Med Joint 18:17:28 CDT CPT-40535 Venipuncture Draw Fee 10:13:30 CDT CPT-95248 Venipuncture Draw Fee 08:31:43 C DEVELOPER CPT-JTINJ Joint Injection 18:34:50 CDT CPT-75483 Knee 3V 12:25:09 CDT CPT-49968 Venipuncture Draw Fee 12:15:57 CDT CPT-060 Medical Surveillance Exam 21:31:43 CDT 2011 CPT-42791 Venipuncture Draw Fee 08:32:05 C DEVELOPER CPT-OV Office Visit 18:19:06 CDT
--- OUTSIDE RECORDS SUMMARY | 2020-01-18 14:11 | XMS REPORT | Clinical Summary ---
Author Author Admin, Mitch Leon Organization [facility] [employer] Address Unknown Phone Unavailable Allergies, Adverse Reactions, [...] vessel, [place] or graft EDEMA 782.3 Resolved Mitch [...] GOUT, RIGHT WRIST 274.9 Resolved Mitch Arnol Calritos DO Gout, unspecified BRUISE 924.9 Resolved Mitch [...] unspecified Influenza Vaccination for Prophylaxis V04.81 Inactive Mtich Urbina DO Need for prophylactic vaccin ation [...] Grover e DO BRUISE ICD-924.9 Inactive Mitch Urbian [...] 1 hour if symptoms persist. COLCHICIN E [id number] No Longer Active Mitch Urbina DO Active MINOXIDIL TABS 2.5MG TAKE 1 TABLET TWICE A DAY FOR HIGH BLOO D PRESSURE MINOXIDIL 71776040746 Active Mitch Urbina DO Ac tive JANUVIA TABS 50MG TAKE 1 TABLET DAILY SITAGLIPT IN PHOSPHATE 75721783877 Active Mitch Urbina DO Active INVOKANA TABS 100MG TAKE 1 TABLET DAILY CANAGLIFL OZIN 00497530265 Active Mitch Urbina DO Active AMLODIPINE BESYLATE 5 MG ORAL TABLET 1 tablet by mouth daily 201 05/19/02 AMLODIPINE BESYLATE 31171654439 No Longer Active Maria Briones Active WARFARIN TABS 1MG TAKE 2 TABLETS (2 MG) DAILY WITH THE 5 MG TABLET TO EQUAL 7 MG DAILY WARFARIN SODIUM 85857344358 Active Maria Briones Active WARFARIN SODIUM 5 MG TABS TAKE 1 TABLET DAILY W ARFARIN SODIUM 13845483339 Active Maria Rivas RN Active KEFLEX 500 MG ORAL CAPSULE 1 capsule by mouth three times da rocky x10 days CEPHALEXIN 23638128298 No Longer Active Maria landaverde RN Active METOPROLOL TARTRATE TABS 50MG TAKE 1 TABLET TWICE A DAY ([facility]) METOPROLOL TARTRATE 32401888441 Active Maria Briones Active DOXAZOSIN MESYLATE 2 MG ORAL TABLET 1 po q day for pr ostate and blood pressure DOXAZOSIN MESYLATE 10288700837 Active Mitch Urbina Active LOSARTAN TABS 100MG TAKE 1 TABLET DAILY FOR BLOOD PRESSURE LOSARTAN POTASSIUM 99610981034 Active Maria Rivas RN Active FLUTICASONE PROPIONATE 50 MCG/ACT NASAL SUSPENSION 1 s pray each nostril twice daily for 1 week, then once daily FLUTICASONE TN OPIONATE 71222726559 Active 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 PREDNISONE 20 MG ORAL TABLET 2 tabs daily for 3 days 1 tab d aily for 3 days PREDNISONE 61650593492 No Longer Active Becky Sell 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 METFORMIN HCL ER 500 MG ORAL TABLET EXTENDED RELEASE 2 4 HOUR 2 tablets by mouth twice daily METFORMIN HCL 46447741122 Active Mitch Urbina DO Active GLIMEPIRIDE 4 MG ORAL TABLET 1 tablet by mouth twice daily f or diabetes GLIMEPIRIDE 67349983002 Active Mitch Urbina DO Active GLIMEPIRIDE 2 MG ORAL TABLET 1 po BID GLIMEPI RIDE 37236532933 No Longer Active Mitch Urbina DO Active PROVIGIL 200 MG ORAL TABLET 1/2 tab po q day MODA FINIL 02468576530 Active Maria Rivas RN Active FAMOTIDINE 20 MG ORAL TABLET by mouth twice a day 2017 FAMOTIDINE 83564253218 No Longer Active Mitch Urbina DO Active COLCRYS 0.6 MG ORAL TABLET 1 tab qid prn gout C OLCHICINE 66992121111 No Longer Active Mitch Urbina DO Active KEFLEX 500 MG ORAL CAPSULE 1 po qid CEPHALEXI N 56569366996 No Longer Active Mitch Urbina DO Active AMLODIPINE BESYLATE 5 MG ORAL TABLET 1 tablet by mouth daily 201 01/20/04 AMLODIPINE BESYLATE 83142284613 No Longer Active Joe fulton APRN Active MECLIZINE HCL 25 MG ORAL TABLET 1 po tid 3 days, then 1/2 ta b tid 3 days MECLIZINE HCL 58647132836 No Longer Active Corey SEGURA Active ALLOPURINOL 300 MG ORAL TABLET Take 1 tablet by mouth daily 2012 ALLOPURINOL 91756363359 No Longer Active Corey SEGURA Active CLONIDINE HCL 0.1 MG ORAL TABLET 1 po bid 7 days, then 1/2 t ab po bid 7 days CLONIDINE HCL 46635958031 No Longer Active Corey SEGURA Active COUMADIN 4 MG ORAL TABLET 1 tablet daily WARFAR IN SODIUM 98043012289 No Longer Active Corey SEGURA Active POLYTRIM 54309-5.1 UNIT/ML-% OPHTHALMIC SOLUTION 1 rui p in affected eye every 3 hours while awake x 7 days POLYMYXIN B-TRIMETHOP RIM 72441580281 No Longer Active Corey SEGURA Active LOSARTAN POTASSIUM-HCTZ 100-12.5 MG ORAL TABLET 1 by m outh daily for high blood pressure LOSARTAN POTASSIUM-HCTZ 51091058036 No Longer A ctive Mitch Urbina DO Active LISINOPRIL-HYDROCHLOROTHIAZIDE 20-12.5 MG ORAL TABLET 1 tab by m outh daily LISINOPRIL-HYDROCHLOROTHIAZIDE 48054903661 No Longer Active Mitch Urbina DO Active LISINOPRIL 20 MG ORAL TABLET 1 tab po at HS LIS INOPRIL 47301853613 No Longer Active Mitch Urbina DO Active COUMADIN 5 MG ORAL TABLET 1 by mouth every other day 2 WARFARIN SODIUM 38792373487 No Longer Active Mitch Urbina DO Active COUMADIN 6 MG ORAL TABLET 1 by mouth every other day 2 WARFARIN SODIUM 15991414428 No Longer Active Mitch Urbina DO Active SIMVASTATIN 40 MG ORAL TABLET 1 tab daily at bedtime SIMVASTATIN 29353301151 Active Maria Rivas RN Active SIMVASTATIN 20 MG ORAL TABLET 1 tab daily at bedtime 2 SIMVASTATIN 07214929965 No Longer Active Mitch Urbina DO Active LOVENOX 100 MG/ML SUBCUTANEOUS SOLUTION One injection twice a da y ENOXAPARIN SODIUM 48803409908 No Longer Active Carmine Yusuf MD Active JANUVIA 100 MG ORAL TABLET 1/2 by mouth every day 2011 SITAGLIPTIN PHOSPHATE 10085505912 No Longer Active Bijal Segal RN Acti ve METFORMIN HCL 500 MG ORAL TABLET 2 by mouth twice daily METFORMIN HCL 78812443916 No Longer Active Renee Oconnor LPN Active COLCRYS 0.6 MG ORAL TABLET 1 po q 6 hours prn gout pain COLCHICINE 20757977571 No Longer Active Camila Reese Active LISINOPRIL 5 MG ORAL TABLET 1 by mouth every day 11/17 LISINOPRIL 42573989141 No Longer Active Nguyen Perez Active KLOR-CON 20 MEQ ORAL PACKET Take one by mouth daily 09/10/08 POTASSIUM CHLORIDE 00987277291 No Longer Active Nguyen Perez Active FUROSEMIDE 40 MG ORAL TABLET 1 by mouth daily F UROSEMIDE 01186752088 No Longer Active Nguyen Perez Active PROVIGIL 100 MG ORAL TABLET Take one by mouth daily 20 08/20/04 MODAFINIL 79600669922 No Longer Active Mitch Urbina DO Active BACTRIM DS 800-160 MG ORAL TABLET 1 tab by mouth twice daily 201 10/19/09 TRIMETHOPRIM-SULFAMETHOXAZOLE 32807610238 No Longer Active Elian Hays MD Active ADULT ASPIRIN LOW STRENGTH 81 MG ORAL TABLET DISINTEGR ATING 1 by mouth every daily ASPIRIN 74471244184 Active Mitch Urbina DO Ac tive BACTRIM DS 800-160 MG ORAL TABLET 1 tab by mouth twice daily 201 10/19/09 BACTRIM DS 800-160 MG ORAL TABLET 813486 TRIMETHOPRIM-SULFAMETHOXAZOLE Inactive PROVIGIL 100 MG ORAL TABLET Take one by mouth daily 20 08/20/04 PROVIGIL 100 MG ORAL TABLET 087262 MODAFINIL Inactive FUROSEMIDE 40 MG ORAL TABLET 1 by mouth daily FUROSEMIDE 40 MG ORAL TABLET 733334 FUROSEMIDE Inactive KLOR-CON 20 MEQ ORAL PACKET Take one by mouth daily 09/10/08 KLOR- CON 20 MEQ ORAL PACKET 8540820 POTASSIUM CHLORIDE Inactive LISINOPRIL 5 MG ORAL TABLET 1 by mouth every day 11/17 LISINOPRIL 5 MG ORAL TABLET 521559 LISINOPRIL Inactive COLCRYS 0.6 MG ORAL TABLET 1 po q 6 hours prn gout pain COLCRYS 0.6 MG ORAL TABLET 882377 COLCHICINE Inactive JANUVIA 100 MG ORAL TABLET 1/2 by mouth every day 2011 JANUVIA 100 MG ORAL TABLET SITAGLIPTIN PHOSPHATE Inactive SIMVASTATIN 20 MG ORAL TABLET 1 tab daily at bedtime 2 SIMVASTATIN 20 MG ORAL TABLET 374950 SIMVASTATIN Inactive COUMADIN 6 MG ORAL TABLET 1 by mouth every other day 2 COUMADIN 6 MG ORAL TABLET 760408 WARFARIN SODIUM Inactive COUMADIN 5 MG ORAL TABLET 1 by mouth every other day 2 COUMADIN 5 MG ORAL TABLET 127633 WARFARIN SODIUM Inactive LISINOPRIL 20 MG ORAL TABLET 1 tab po at HS LISINOPRIL 20 MG ORAL TABLET 894247 LISINOPRIL Inactive LISINOPRIL-HYDROCHLOROTHIAZIDE 20-12.5 MG ORAL TABLET 1 tab by m outh daily LISINOPRIL-HYDROCHLOROTHIAZIDE 20-12.5 MG ORAL TABLET 209516 LISINOPRIL-HYDROCHLOROTHIAZIDE Inactive POLYTRIM 22516-2.1 UNIT/ML-% OPHTHALMIC SOLUTION 1 rui p in affected eye every 3 hours while awake x 7 days POLYTRIM 1000 0-0.1 UNIT/ML-% OPHTHALMIC SOLUTION 997140 POLYMYXIN B-TRIMETHOPRIM Inactive COUMADIN 4 MG ORAL TABLET 1 tablet daily COUMADIN 4 MG ORAL TABLET 757441 WARFARIN SODIUM Inactive CLONIDINE HCL 0.1 MG ORAL TABLET 1 po bid 7 days, then 1/2 t ab po bid 7 days CLONIDINE HCL 0.1 MG ORAL TABLET 877327 CLONIDIN E HCL Inactive ALLOPURINOL 300 MG ORAL TABLET Take 1 tablet by mouth daily 2012 ALLOPURINOL 300 MG ORAL TABLET 696194 ALLOPURINOL I nactive MECLIZINE HCL 25 MG ORAL TABLET 1 po tid 3 days, then 1/2 ta b tid 3 days MECLIZINE HCL 25 MG ORAL TABLET 295042 MECLIZINE HCL Inactive AMLODIPINE BESYLATE 5 MG ORAL TABLET 1 tablet by mouth daily 201 01/20/04 AMLODIPINE BESYLATE 5 MG ORAL TABLET 903345 AMLODIPINE BESYLATE Inactive KEFLEX 500 MG ORAL CAPSULE 1 po qid K EFLEX 500 MG ORAL CAPSULE 329306 CEPHALEXIN Inactive COLCRYS 0.6 MG ORAL TABLET 1 tab qid prn gout COLCRYS 0.6 MG ORAL TABLET 380997 COLCHICINE Inactive FAMOTIDINE 20 MG ORAL TABLET by mouth twice a day 2017 FAMOTIDINE 20 MG ORAL TABLET 049177 FAMOTIDINE Inactive GLIMEPIRIDE 2 MG ORAL TABLET 1 po BID GLIMEPIRIDE 2 MG ORAL TABLET 969710 GLIMEPIRIDE Inactive AMLODIPINE BESYLATE 5 MG ORAL TABLET 1 tablet by mouth daily 201 05/19/02 AMLODIPINE BESYLATE 5 MG ORAL TABLET 624456 AMLODIPINE BESYLATE Inactive MITIGARE 0.6 MG ORAL CAPSULE 2 capsules at onset of go ut pain, then take one capsule at 1 hour if symptoms persist. M ITIGARE 0.6 MG ORAL CAPSULE 5791068 COLCHICINE Inactive LOVENOX 100 MG/ML SUBCUTANEOUS SOLUTION One injection twice a da y LOVENOX 100 MG/ML SUBCUTANEOUS SOLUTION 936323 ENOXAPAR IN SODIUM Inactive PREDNISONE 20 MG ORAL TABLET 2 tabs daily for 3 days 1 tab d aily for 3 days PREDNISONE 20 MG ORAL TABLET 503733 PREDNISONE Inactive KEFLEX 500 MG ORAL CAPSULE 1 capsule by mouth three times da rocky x10 days KEFLEX 500 MG ORAL CAPSULE 680736 CEPHALEXIN I nactive Advance Directives Directive Description [...] - Chem istry sodium, serum 138 mmol/L 723-468 6765/11/07 potassium, serum 4.5 mmol/L 3.5-5.2 chloride, serum [...] Panel - Chemistry sodium, serum 140 mmol/L 909-800 4304/11/01 carbon dioxide, venous blood 28.6 mmol/L 21.0-32 [...] 6.1 % 4.3-6.0 sodium, serum 139 mmol/L 741-784 8827/04/06 carbon dioxide, venous blood 29.0 mmol/L 21.0-32 [...] 50-136 Encounters Code Encounter Date Provider Facility CPT-69425 34210-Jkg Vst-Est Level IV 11:57:44 CDT Bru ce [facility]-78740 53913-Aox Vst-Est Level IV 16:21:22 CDT [facility]-57791 Level 3 Est. Patient 15:18:36 CDT Becky anderson [facility]-14176 38499-Ivw Vst-Est Level IV 10:06:35 CDT [facility]-91369 47248-Hfw Vst-Est Level IV 10:52:00 TAX ECONOMIST Stephy Ambrose [facility] CPT-84237 Level 3 Est. Patient 18:25:53 CDT Mitch luis [facility]-01065 Level 3 Est. Patient 19:43:34 CDT Mitch luis [facility] CPT-08155 Level 4 Est. Patient 09:30:18 CDT Mitch luis [facility]-02275 Level 3 Est. Patient 15:10:14 CDT Devonjustincarlitos kamara [facility]-98088 Level 3 Est. Patient 15:03:46 CDT Devonjustincarlitos kamara [facility] CPT-10573 Level 3 Est. Patient 14:21:06 CDT Mitch Ambrose L janelle [facility]-97856 Level 3 Est. Patient 14:52:06 CDT Devonsonya Jason kamara [facility] CPT-22511 Level 3 Est. Patient 09:34:30 TAX ECONOMIST Mitch Ambrose L janelle [facility]-08698 Level 3 Est. Patient 09:37:15 CDT Mitch Ambrose L ee [facility] CPT-36238 Level 3 Est. Patient 17:01:00 TAX ECONOMIST Mitch luis [facility] CPT-69589 Level 3 Est. Patient 13:53:19 TAX ECONOMIST Mitch l[facility] CPT-63154 Level 3 Est. Patient 19:19:37 TAX ECONOMIST Mitch W L [facility] CPT-24047 Level 3 Est. Patient 13:25:53 TAX ECONOMIST Tavo toure MD [facility]-28482 Level 3 Est. Patient 18:17:28 CDT Mitch Ambrose L [facility] CPT-35498 Level 3 Est. Patient 15:22:57 CDT Mitch W L ee [facility] CPT-30113 Level 3 Est. Patient 18:21:50 CDT Mitch W L ee [facility]-02631 Level 3 Est. Patient 18:20:38 CDT Mitch W L ee [facility] CPT-50444 Level 3 Est. Patient 15:37:55 CDT Mitch W L ee [facility] CPT-17628 Level 2 Est. Patient 15:54:44 CDT Carmine benton MD [facility] CPT-84317 Level 3 Est. Patient 21:46:01 TAX ECONOMIST Mitch luis [facility] CPT-86870 Level 3 Est. Patient 22:15:[address] [facility] CPT-22518 Level 3 Est. Patient 10:48:[address] [facility] CPT-66233 Level 3 Est. Patient 23:20:57 CDT Tavo toure MD [facility] CPT-98388 Level 3 Est. Patient 16:26:[address] 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 documented 11:50:34 CDT CPT-16736 Venipuncture Draw Fee 11:20:39 TAX ECONOMIST CPT-22817 Venipuncture Draw Fee 18:03:01 TAX ECONOMIST CPT-88215 Venipuncture Draw Fee 10:44:42 TAX ECONOMIST CPT-52723 Venipuncture Draw Fee 14:46:55 TAX ECONOMIST CPT-86595 Venipuncture Draw Fee 08:26:21 CDT CPT-97555 Venous Duplex Left Leg XRAY USE ONLY 10:43:10 CDT CPT-91764 Venipuncture Draw Fee 17:04:55 CDT CPT-38005 Venipuncture Draw Fee 17:20:50 CDT CPT-18273 Venipuncture Draw Fee 18:00:48 CDT CPT-21723 Venipuncture Draw Fee 14:56:20 CDT CPT-JTINJ Asp/Joint Injection 18:47:02 CDT CPT-73174 Venipuncture Draw Fee 09:26:17 CDT CPT-37362 PT/INR - LAB USE ONLY 13:32:49 TAX ECONOMIST CPT-65399 Venipuncture Draw Fee 13:32:49 TAX ECONOMIST CPT-99230 PT/INR - LAB USE ONLY 10:34:49 TAX ECONOMIST CPT-82654 Venipuncture Draw Fee 10:34:48 TAX ECONOMIST CPT-76380 PT/INR - LAB USE ONLY 09:22:03 TAX ECONOMIST CPT-53748 Venipuncture Draw Fee 09:22:02 TAX ECONOMIST CPT-52814 Hemoccult IFOBT - LAB USE ONLY 10:27:22 CDT CPT-50289 Venipuncture Draw Fee 08:27:08 CDT CPT-72413 Liver Profile - LAB USE ONLY 08:27:07 CDT 2 CPT-67401 Microalbumin - LAB USE ONLY 08:27:07 CDT 20 25/05/09 CPT-03912 PT/INR - LAB USE ONLY 08:27:07 CDT CPT-90964 HGBA1C - LAB USE ONLY 08:27:07 CDT CPT-73425 CBC - LAB USE ONLY 08:27:07 CDT CPT-44007 Venipuncture Draw Fee 11:09:14 CDT CPT-48318 Venipuncture Draw Fee 08:32:21 TAX ECONOMIST CPT-94540 Venipuncture Draw Fee 09:38:56 TAX ECONOMIST CPT-46576 No Charge Offi Visit 21:36:07 CDT 1 CPT-10060 Venipuncture Draw Fee 10:13:28 TAX ECONOMIST CPT-43857 Venipuncture Draw Fee 08:31:11 CDT CPT-16414 Aspir/Inject Med Joint 18:17:28 CDT CPT-34741 Venipuncture Draw Fee 10:13:30 CDT CPT-98403 Venipuncture Draw Fee 08:31:43 TAX ECONOMIST CPT-JTINJ Joint Injection 18:34:50 CDT CPT-55048 Knee 3V 12:25:09 CDT CPT-02829 Venipuncture Draw Fee 12:15:57 CDT CPT-060 Medical Surveillance Exam 21:31:43 CDT 2011 CPT-64045 Venipuncture Draw Fee 08:32:05 TAX ECONOMIST CPT-OV Office Visit 18:19:06 CDT
--- OUTSIDE RECORDS SUMMARY | 2020-01-18 14:12 | XMS REPORT | Clinical Summary ---
Author Author Admin, Mitch Leon Organization [facility] [employer] Address Unknown Phone Unavailable Allergies, Adverse [...] Coronary atherosclerosis of unspecified type of vessel, tribe or graft EDEMA 782.3 Resolved Mitch [...] OLECRANON BURSITIS, RIGHT 726.33 Resolved Br uce Arnlo Urbina DO Olecranon bursitis UNSPECIFIED ANEMIA 285.9 [...] 285.9 Active Ruchi Bennett RMA Anemia, unspecified SEROMA ICD-998.13 Inactive Mitch Urbina DO [...] nuclear stress test ICD-794.39 Gunnar Isidro MA CELLULITIS, GROIN, LEFT ICD-682.2 Inactive Zoya Urbina DO Medication List Medication Instructions Start Date Stop Date Generic Name NDC Status Provider Patient Instruction MAGNESIUM OXIDE 400 MG ORAL TABLET 1 po daily M AGNESIUM OXIDE 50981611408 Active Ruchi DUARTE Active METFORMIN HCL ER TABS 500MG TAKE 2 TABLETS TWICE A DAY METFORMIN HCL 67937996934 Active Ruchi DUARTE Active MITIGARE 0.6 MG ORAL CAPSULE 2 capsules at onset of go ut pain, then take one capsule at 1 hour if symptoms persist. COLCHICIN E 33914489268 No Longer Active Mitch Urbina DO Active MINOXIDIL TABS 2.5MG TAKE 1 TABLET TWICE A DAY FOR HIGH BLOO D PRESSURE MINOXIDIL 30902594615 Active Mitch Urbina DO Ac tive JANUVIA TABS 50MG TAKE 1 TABLET DAILY SITAGLIPT IN PHOSPHATE 56441690676 Active Mitch Urbina DO Active INVOKANA TABS 100MG TAKE 1 TABLET DAILY CANAGLIFL OZIN 30334863141 Active Mitch Urbina DO Active AMLODIPINE BESYLATE 5 MG ORAL TABLET 1 tablet by mouth daily 201 05/19/02 AMLODIPINE BESYLATE 88243829313 No Longer Active Maria Briones Active WARFARIN TABS 1MG TAKE 2 TABLETS (2 MG) DAILY WITH THE 5 MG TABLET TO EQUAL 7 MG DAILY WARFARIN SODIUM 24713377677 Active Maria Briones Active WARFARIN SODIUM 5 MG TABS TAKE 1 TABLET DAILY W ARFARIN SODIUM 59106770372 Active Maria Rivas RN Active KEFLEX 500 MG ORAL CAPSULE 1 capsule by mouth three times da rocky x10 days CEPHALEXIN 75772414263 No Longer Active Maria landaverde RN Active METOPROLOL TARTRATE TABS 50MG TAKE 1 TABLET TWICE A DAY ([facility]) METOPROLOL TARTRATE 85483451349 Active Maria Briones Active DOXAZOSIN MESYLATE 2 MG ORAL TABLET 1 po q day for pr ostate and blood pressure DOXAZOSIN MESYLATE 76231949299 Active Mitch Urbina DO Active LOSARTAN TABS 100MG TAKE 1 TABLET DAILY FOR BLOOD PRESSURE LOSARTAN POTASSIUM 75539901350 Active Maria Rivas RN Active FLUTICASONE PROPIONATE 50 MCG/ACT NASAL SUSPENSION 1 s pray each nostril twice daily for 1 week, then once daily FLUTICASONE LA OPIONATE 20028661600 Active Becky Sell 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 PREDNISONE 20 MG ORAL TABLET 2 tabs daily for 3 days 1 tab d aily for 3 days PREDNISONE 62048859370 No Longer Active Becky Sell 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 GLIMEPIRIDE 4 MG ORAL TABLET 1 tablet by mouth twice daily f or diabetes GLIMEPIRIDE 62178622624 Active Mitch Urbina DO Active GLIMEPIRIDE 2 MG ORAL TABLET 1 po BID GLIMEPI RIDE 68946946477 No Longer Active Mitch Urbina DO Active PROVIGIL 200 MG ORAL TABLET 1/2 tab po q day MODA FINIL 91482047195 Active Maria Rivas RN Active FAMOTIDINE 20 MG ORAL TABLET by mouth twice a day 2017 FAMOTIDINE 65034317526 No Longer Active Mitch Urbina DO Active COLCRYS 0.6 MG ORAL TABLET 1 tab qid prn gout C OLCHICINE 42111931840 No Longer Active Mitch Urbina DO Active KEFLEX 500 MG ORAL CAPSULE 1 po qid CEPHALEXI N 48652789936 No Longer Active Mitch Urbina DO Active AMLODIPINE BESYLATE 5 MG ORAL TABLET 1 tablet by mouth daily 201 01/20/04 AMLODIPINE BESYLATE 80143080081 No Longer Active Joe fulton APRN Active MECLIZINE HCL 25 MG ORAL TABLET 1 po tid 3 days, then 1/2 ta b tid 3 days MECLIZINE HCL 28601306073 No Longer Active Corey SEGURA Active ALLOPURINOL 300 MG ORAL TABLET Take 1 tablet by mouth daily 2012 ALLOPURINOL 06723750293 No Longer Active Corey SEGURA Active CLONIDINE HCL 0.1 MG ORAL TABLET 1 po bid 7 days, then 1/2 t ab po bid 7 days CLONIDINE HCL 99374807536 No Longer Active Corey SEGURA Active COUMADIN 4 MG ORAL TABLET 1 tablet daily WARFAR IN SODIUM 42916700295 No Longer Active Corey SEGURA Active POLYTRIM 16021-3.1 UNIT/ML-% OPHTHALMIC SOLUTION 1 rui p in affected eye every 3 hours while awake x 7 days POLYMYXIN B-TRIMETHOP RIM 34829020556 No Longer Active Corey SEGURA Active LOSARTAN POTASSIUM-HCTZ 100-12.5 MG ORAL TABLET 1 by m outh daily for high blood pressure LOSARTAN POTASSIUM-HCTZ 66150651873 No Longer A ctive Mitch Urbina DO Active LISINOPRIL-HYDROCHLOROTHIAZIDE 20-12.5 MG ORAL TABLET 1 tab by m outh daily LISINOPRIL-HYDROCHLOROTHIAZIDE 36178839988 No Longer Active Mitch Urbina DO Active LISINOPRIL 20 MG ORAL TABLET 1 tab po at HS LIS INOPRIL 87418440494 No Longer Active Mitch Urbina DO Active COUMADIN 5 MG ORAL TABLET 1 by mouth every other day 2 WARFARIN SODIUM 41550706986 No Longer Active Mitch Urbina DO Active COUMADIN 6 MG ORAL TABLET 1 by mouth every other day 2 WARFARIN SODIUM 16670604237 No Longer Active Mitch Urbina DO Active SIMVASTATIN 40 MG ORAL TABLET 1 tab daily at bedtime SIMVASTATIN 66374389998 Active Maria Rivas RN Active SIMVASTATIN 20 MG ORAL TABLET 1 tab daily at bedtime 2 SIMVASTATIN 79708016716 No Longer Active Mitch Urbina DO Active LOVENOX 100 MG/ML SUBCUTANEOUS SOLUTION One injection twice a da y ENOXAPARIN SODIUM 79547824343 No Longer Active Carmine Yusuf MD Active JANUVIA 100 MG ORAL TABLET 1/2 by mouth every day 2011 SITAGLIPTIN PHOSPHATE 35248892821 No Longer Active Bijal Segal RN Acti ve METFORMIN HCL 500 MG ORAL TABLET 2 by mouth twice daily METFORMIN HCL 61681575615 No Longer Active Renee Oconnor LPN Active COLCRYS 0.6 MG ORAL TABLET 1 po q 6 hours prn gout pain COLCHICINE 83658828276 No Longer Active Camila Reese Active LISINOPRIL 5 MG ORAL TABLET 1 by mouth every day 11/17 LISINOPRIL 24872550874 No Longer Active Nguyen Ana Active KLOR-CON 20 MEQ ORAL PACKET Take one by mouth daily 09/10/08 POTASSIUM CHLORIDE 46002253719 No Longer Active Nguyen Perez Active FUROSEMIDE 40 MG ORAL TABLET 1 by mouth daily F UROSEMIDE 58518075824 No Longer Active Nguyen Perez Active PROVIGIL 100 MG ORAL TABLET Take one by mouth daily 08/20/04 MODAFINIL 89348504204 No Longer Active Mitch Urbina DO Active BACTRIM DS 800-160 MG ORAL TABLET 1 tab by mouth twice daily 201 10/19/09 TRIMETHOPRIM-SULFAMETHOXAZOLE 22672852808 No Longer Active C alberto Hays MD Active ADULT ASPIRIN LOW STRENGTH 81 MG ORAL TABLET DISINTEGR ATING 1 by mouth every daily ASPIRIN 37132118996 Active Mitch Urbina DO Ac tive BACTRIM DS 800-160 MG ORAL TABLET 1 tab by mouth twice daily 201 10/19/09 BACTRIM DS 800-160 MG ORAL TABLET 298150 TRIMETHOPRIM-SULFAMETHOXAZOLE Inactive PROVIGIL 100 MG ORAL TABLET Take one by mouth daily 20 08/20/04 PROVIGIL 100 MG ORAL TABLET 633180 MODAFINIL Inactive FUROSEMIDE 40 MG ORAL TABLET 1 by mouth daily FUROSEMIDE 40 MG ORAL TABLET 893366 FUROSEMIDE Inactive KLOR-CON 20 MEQ ORAL PACKET Take one by mouth daily 09/10/08 KLOR- CON 20 MEQ ORAL PACKET 9860252 POTASSIUM CHLORIDE Inactive LISINOPRIL 5 MG ORAL TABLET 1 by mouth every day 11/17 LISINOPRIL 5 MG ORAL TABLET 694362 LISINOPRIL Inactive COLCRYS 0.6 MG ORAL TABLET 1 po q 6 hours prn gout pain COLCRYS 0.6 MG ORAL TABLET 491050 COLCHICINE Inactive JANUVIA 100 MG ORAL TABLET 1/2 by mouth every day 2011 JANUVIA 100 MG ORAL TABLET SITAGLIPTIN PHOSPHATE Inactive SIMVASTATIN 20 MG ORAL TABLET 1 tab daily at bedtime 2 SIMVASTATIN 20 MG ORAL TABLET 156675 SIMVASTATIN Inactive COUMADIN 6 MG ORAL TABLET 1 by mouth every other day 2 COUMADIN 6 MG ORAL TABLET 625358 WARFARIN SODIUM Inactive COUMADIN 5 MG ORAL TABLET 1 by mouth every other day 2 COUMADIN 5 MG ORAL TABLET 096503 WARFARIN SODIUM Inactive LISINOPRIL 20 MG ORAL TABLET 1 tab po at HS LISINOPRIL 20 MG ORAL TABLET 737935 LISINOPRIL Inactive LISINOPRIL-HYDROCHLOROTHIAZIDE 20-12.5 MG ORAL TABLET 1 tab by m outh daily LISINOPRIL-HYDROCHLOROTHIAZIDE 20-12.5 MG ORAL TABLET 244192 LISINOPRIL-HYDROCHLOROTHIAZIDE Inactive POLYTRIM 31167-3.1 UNIT/ML-% OPHTHALMIC SOLUTION 1 rui p in affected eye every 3 hours while awake x 7 days POLYTRIM 1000 0-0.1 UNIT/ML-% OPHTHALMIC SOLUTION 284352 POLYMYXIN B-TRIMETHOPRIM Inactive COUMADIN 4 MG ORAL TABLET 1 tablet daily COUMADIN 4 MG ORAL TABLET 779692 WARFARIN SODIUM Inactive CLONIDINE HCL 0.1 MG ORAL TABLET 1 po bid 7 days, then 1/2 t ab po bid 7 days CLONIDINE HCL 0.1 MG ORAL TABLET 413496 CLONIDIN E HCL Inactive ALLOPURINOL 300 MG ORAL TABLET Take 1 tablet by mouth daily 2012 ALLOPURINOL 300 MG ORAL TABLET 125313 ALLOPURINOL I nactive MECLIZINE HCL 25 MG ORAL TABLET 1 po tid 3 days, then 1/2 ta b tid 3 days MECLIZINE HCL 25 MG ORAL TABLET 489442 MECLIZINE HCL Inactive AMLODIPINE BESYLATE 5 MG ORAL TABLET 1 tablet by mouth daily 201 01/20/04 AMLODIPINE BESYLATE 5 MG ORAL TABLET 581754 AMLODIPINE BESYLATE Inactive KEFLEX 500 MG ORAL CAPSULE 1 po qid K EFLEX 500 MG ORAL CAPSULE 685777 CEPHALEXIN Inactive COLCRYS 0.6 MG ORAL TABLET 1 tab qid prn gout COLCRYS 0.6 MG ORAL TABLET 889413 COLCHICINE Inactive FAMOTIDINE 20 MG ORAL TABLET by mouth twice a day 2017 FAMOTIDINE 20 MG ORAL TABLET 811094 FAMOTIDINE Inactive GLIMEPIRIDE 2 MG ORAL TABLET 1 po BID GLIMEPIRIDE 2 MG ORAL TABLET 859397 GLIMEPIRIDE Inactive AMLODIPINE BESYLATE 5 MG ORAL TABLET 1 tablet by mouth daily 201 05/19/02 AMLODIPINE BESYLATE 5 MG ORAL TABLET 929470 AMLODIPINE BESYLATE Inactive MITIGARE 0.6 MG ORAL CAPSULE 2 capsules at onset of go ut pain, then take one capsule at 1 hour if symptoms persist. M ITIGARE 0.6 MG ORAL CAPSULE 7539332 COLCHICINE Inactive LOVENOX 100 MG/ML SUBCUTANEOUS SOLUTION One injection twice a da y LOVENOX 100 MG/ML SUBCUTANEOUS SOLUTION 676022 ENOXAPAR IN SODIUM Inactive PREDNISONE 20 MG ORAL TABLET 2 tabs daily for 3 days 1 tab d aily for 3 days PREDNISONE 20 MG ORAL TABLET 978664 PREDNISONE Inactive KEFLEX 500 MG ORAL CAPSULE 1 capsule by mouth three times da rocky x10 days KEFLEX 500 MG ORAL CAPSULE 837195 CEPHALEXIN I nactive Advance Directives Directive Description [...] - Chem istry sodium, serum 138 mmol/L 134-112 8914/11/07 potassium, serum 4.5 mmol/L 3.5-5.2 chloride, serum [...] 0.70 mg/dL 0.00-1.00 sodium, serum 140 mmol/L 819-664 7661/11/01 carbon dioxide, venous blood 28.6 mmol/L 21.0-32 [...] CBC W/DIFF, Comp. Metabolic Panel - Hematology erythrocyte (RBC) count 5.24 10^6/MM^3 10*6/mm3 4.50-6.5 0 hemoglobin, blood 13.8 g/dL 14.0-18.0 hematocrit, blood 42.8 % 40.0-54.0 mean corpuscular volume, RBC 82 fL 80-97 mean corpuscular hemoglobin, RBC 26.4 pg 27. 0-31.2 mean corpuscular hemoglobin concentration, RBC 32.3 G/DL % 31.8-35.4 red blood cell distribution width 13.7 % 11 .6-14.8 platelet count 326 10^3/MM^3 10*3/mm3 220-275 6583/11/01 lymphocytes as percent of blood leukocytes 13.4 [...] 6.1 % 4.3-6.0 sodium, serum 139 mmol/L 601-622 6926/04/06 carbon dioxide, venous blood 29.0 mmol/L 21.0-32 [...] 50-136 Encounters Code Encounter Date Provider Facility CPT-19797 [id number] Vst-Est Level IV 11:57:44 CDT Bru robinson W [facility] CPT-68087 [id number] Vst-Est Level IV 16:21:22 CDT Bru ce W [facility] CPT-84707 Level 3 Est. Patient 15:18:36 CDT Becky anderson APRN [facility] CPT-57663 [id number] Vst-Est Level IV 10:06:35 CDT Bru ce W [facility] CPT-98761 88491-Hkx Vst-Est Level IV 10:52:00 BISQUE FINISHER Bru robinson W [facility] CPT-08212 Level 3 Est. Patient 18:25:53 CDT Mitch Castellano [facility] CPT-67473 Level 3 Est. Patient 19:43:34 CDT Mitch W Nona luis [facility] CPT-51670 Level 4 Est. Patient 09:30:18 CDT Mitch luis [facility] CPT-30253 Level 3 Est. Patient 15:10:14 CDT Devonjustincarlitos kamara [facility]-31542 Level 3 Est. Patient 15:03:46 CDT Devonsonya Jason [facility]-58528 Level 3 Est. Patient 14:21:06 CDT Mitch luis [facility] CPT-22347 Level 3 Est. Patient 14:52:06 CDT Joe Jason [facility]-60436 Level 3 Est. Patient 09:34:30 BISQUE FINISHER Mitch luis [facility]-88757 Level 3 Est. Patient 09:37:15 CDT Mitch luis [facility] CPT-83482 Level 3 Est. Patient 17:01:00 BISQUE FINISHER Mitch luis [facility] CPT-84960 Level 3 Est. Patient 13:53:19 BISQUE FINISHER Mitch luis [facility] CPT-90470 Level 3 Est. Patient 19:19:37 BISQUE FINISHER Mitch luis [facility] CPT-71830 Level 3 Est. Patient 13:25:53 BISQUE FINISHER Tavo toure MD [facility] CPT-40177 Level 3 Est. Patient 18:17:28 CDT Mitch luis [facility] CPT-08438 Level 3 Est. Patient 15:22:57 CDT Mitch luis [facility] CPT-42727 Level 3 Est. Patient 18:21:50 CDT Mitch Ambrose L janelle [facility] CPT-83345 Level 3 Est. Patient 18:20:38 CDT Mitch luis [facility] CPT-18879 Level 3 Est. Patient 15:37:55 CDT Mitch luis [facility] CPT-10248 Level 2 Est. Patient 15:54:44 CDT Carmine benton MD [facility] CPT-41423 Level 3 Est. Patient 21:46:01 BISQUE FINISHER Mitch Ambrose Nona luis [facility] CPT-02017 Level 3 Est. Patient 22:15:50 CDT Mitch luis [facility] CPT-41706 Level 3 Est. Patient 10:48:15 CDT Mitch luis [facility] CPT-52982 Level 3 Est. Patient 23:20:57 CDT Tavo toure MD [facility] CPT-66626 Level 3 Est. Patient 16:26:13 CDT Mitch Castellano janelle [facility] Procedures Code Procedure Name Date Entry Date Standard Desc ription CPT-81654 EKG Trac and Interp - XRAY USE ONLY 1 2:03:24 CDT CPT-64252 Venipuncture Draw Fee 12:01:15 CDT [id number] () Dilated retinal eye exam w/interp tipple engineer/geospatial information scientist documented 11:50:34 CDT CPT-29874 Venipuncture Draw Fee 11:20:39 BISQUE FINISHER CPT-04571 Venipuncture Draw Fee 18:03:01 BISQUE FINISHER CPT-31537 Venipuncture Draw Fee 10:44:42 BISQUE FINISHER CPT-53866 Venipuncture Draw Fee 14:46:55 BISQUE FINISHER CPT-81080 Venipuncture Draw Fee 08:26:21 CDT CPT-24229 Venous Duplex Left Leg XRAY USE ONLY 10:43:10 CDT CPT-68665 Venipuncture Draw Fee 17:04:55 CDT CPT-05561 Venipuncture Draw Fee 17:20:50 CDT CPT-27027 Venipuncture Draw Fee 18:00:48 CDT CPT-05107 Venipuncture Draw Fee 14:56:20 CDT CPT-JTINJ Asp/Joint Injection 18:47:02 CDT CPT-50539 Venipuncture Draw Fee 09:26:17 CDT CPT-63428 PT/INR - LAB USE ONLY 13:32:49 BISQUE FINISHER CPT-43723 Venipuncture Draw Fee 13:32:49 BISQUE FINISHER CPT-52820 PT/INR - LAB USE ONLY 10:34:49 BISQUE FINISHER CPT-74699 Venipuncture Draw Fee 10:34:48 BISQUE FINISHER CPT-12897 PT/INR - LAB USE ONLY 09:22:03 BISQUE FINISHER CPT-77474 Venipuncture Draw Fee 09:22:02 BISQUE FINISHER CPT-01389 Hemoccult IFOBT - LAB USE ONLY 10:27:22 CDT CPT-51552 Venipuncture Draw Fee 08:27:08 CDT CPT-07147 Liver Profile - LAB USE ONLY 08:27:07 CDT 2 CPT-70461 Microalbumin - LAB USE ONLY 08:27:07 CDT 20 25/05/09 CPT-59524 PT/INR - LAB USE ONLY 08:27:07 CDT CPT-44957 HGBA1C - LAB USE ONLY 08:27:07 CDT CPT-91814 CBC - LAB USE ONLY 08:27:07 CDT CPT-80125 Venipuncture Draw Fee 11:09:14 CDT CPT-85008 Venipuncture Draw Fee 08:32:21 BISQUE FINISHER CPT-12850 Venipuncture Draw Fee 09:38:56 BISQUE FINISHER CPT-28577 No Charge Offi Visit 21:36:07 CDT 1 CPT-78509 Venipuncture Draw Fee 10:13:28 BISQUE FINISHER CPT-91570 Venipuncture Draw Fee 08:31:11 CDT CPT-21758 Aspir/Inject Med Joint 18:17:28 CDT CPT-84638 Venipuncture Draw Fee 10:13:30 CDT CPT-85236 Venipuncture Draw Fee 08:31:43 BISQUE FINISHER CPT-JTINJ Joint Injection 18:34:50 CDT CPT-43245 Knee 3V 12:25:09 CDT CPT-60581 Venipuncture Draw Fee 12:15:57 CDT CPT-060 Medical Surveillance Exam 21:31:43 CDT 2011 CPT-17933 Venipuncture Draw Fee 08:32:05 BISQUE FINISHER CPT-OV Office Visit 18:19:06 CDT
--- OUTSIDE RECORDS SUMMARY | 2020-01-18 14:12 | XMS REPORT | Clinical Summary ---
Author Author Admin, Mitch Leon Organization [facility] Address Unknown Phone Unavailable Allergies, Adverse Reactions, [...] Coronary atherosclerosis of unspecified type of vessel, sleetmute or graft EDEMA 782.3 Resolved Mitch Urbina [...] TABLET 1 po daily M AGNESIUM OXIDE 01823059934 Active Ruchi DUARTE Active METFORMIN HCL ER TABS 500MG TAKE 2 TABLETS TWICE A DAY METFORMIN HCL 50264631232 Active Ruchi DUARTE Active MITIGARE 0.6 MG ORAL CAPSULE 2 capsules at onset of go ut pain, then take one capsule at 1 hour if symptoms persist. COLCHICIN E 70999514282 No Longer Active Mitch Urbina DO Active MINOXIDIL TABS 2.5MG TAKE 1 TABLET TWICE A DAY FOR HIGH BLOO D PRESSURE MINOXIDIL 42900242961 Active Mitch Urbina DO Ac tive JANUVIA TABS 50MG TAKE 1 TABLET DAILY SITAGLIPT IN PHOSPHATE 65481269057 Active Mitch Urbina DO Active INVOKANA TABS 100MG TAKE 1 TABLET DAILY CANAGLIFL OZIN 83365937983 Active Mitch Urbina DO Active AMLODIPINE BESYLATE 5 MG ORAL TABLET 1 tablet by mouth daily 201 05/19/02 AMLODIPINE BESYLATE 19775949808 No Longer Active Maria Briones Active WARFARIN TABS 1MG TAKE 2 TABLETS (2 MG) DAILY WITH THE 5 MG TABLET TO EQUAL 7 MG DAILY WARFARIN SODIUM 63027907460 Active Maria Briones Active WARFARIN SODIUM 5 MG TABS TAKE 1 TABLET DAILY W ARFARIN SODIUM 24841414425 Active Maria Rivas RN Active KEFLEX 500 MG ORAL CAPSULE 1 capsule by mouth three times da rocky x10 days CEPHALEXIN 49923336530 No Longer Active Maria landaverde RN Active METOPROLOL TARTRATE TABS 50MG TAKE 1 TABLET TWICE A DAY ([facility]) METOPROLOL TARTRATE 51532867586 Active Maria Briones Active DOXAZOSIN MESYLATE 2 MG ORAL TABLET 1 po q day for pr ostate and blood pressure DOXAZOSIN MESYLATE 06972765449 Active Mitch Urbina DO Active LOSARTAN TABS 100MG TAKE 1 TABLET DAILY FOR BLOOD PRESSURE LOSARTAN POTASSIUM 86171748546 Active Maria Rivas RN Active FLUTICASONE PROPIONATE 50 MCG/ACT NASAL SUSPENSION 1 s pray each nostril twice daily for 1 week, then once daily FLUTICASONE ME OPIONATE 71388236811 Active Becky Sell RESIN PAINTER Active PREDNISONE 20 MG ORAL TABLET 2 tabs daily for 3 days 1 tab d aily for 3 days PREDNISONE 87827173674 No Longer Active Becky Sell RESIN PAINTER Active GLIMEPIRIDE 4 MG ORAL TABLET 1 tablet by mouth twice daily f or diabetes GLIMEPIRIDE 94301941986 Active Mitch Urbina DO Active GLIMEPIRIDE 2 MG ORAL TABLET 1 po BID GLIMEPI RIDE 88254359095 No Longer Active Mitch Urbina DO Active PROVIGIL 200 MG ORAL TABLET 1/2 tab po q day MODA FINIL 49847208365 Active Maria Rivas RN Active FAMOTIDINE 20 MG ORAL TABLET by mouth twice a day 2017 FAMOTIDINE 26367392051 No Longer Active Mitch Urbina DO Active COLCRYS 0.6 MG ORAL TABLET 1 tab qid prn gout C OLCHICINE 70202219888 No Longer Active Mitch Urbina DO Active KEFLEX 500 MG ORAL CAPSULE 1 po qid CEPHALEXI N 39899757030 No Longer Active Mitch Urbina DO Active AMLODIPINE BESYLATE 5 MG ORAL TABLET 1 tablet by mouth daily 201 01/20/04 AMLODIPINE BESYLATE 96223736488 No Longer Active Joe fulton APRN Active MECLIZINE HCL 25 MG ORAL TABLET 1 po tid 3 days, then 1/2 ta b tid 3 days MECLIZINE HCL 87536755804 No Longer Active Corey SEGURA Active ALLOPURINOL 300 MG ORAL TABLET Take 1 tablet by mouth daily 2012 ALLOPURINOL 42168942959 No Longer Active Corey SEGURA Active CLONIDINE HCL 0.1 MG ORAL TABLET 1 po bid 7 days, then 1/2 t ab po bid 7 days CLONIDINE HCL 16515160007 No Longer Active Corey SEGURA Active COUMADIN 4 MG ORAL TABLET 1 tablet daily WARFAR IN SODIUM 92380935154 No Longer Active Corey SEGURA Active POLYTRIM 47789-4.1 UNIT/ML-% OPHTHALMIC SOLUTION 1 rui p in affected eye every 3 hours while awake x 7 days POLYMYXIN B-TRIMETHOP RIM 02676788318 No Longer Active Corey SEGURA Active LOSARTAN POTASSIUM-HCTZ 100-12.5 MG ORAL TABLET 1 by m outh daily for high blood pressure LOSARTAN POTASSIUM-HCTZ 35115881915 No Longer A ctive Mitch Urbina DO Active LISINOPRIL-HYDROCHLOROTHIAZIDE 20-12.5 MG ORAL TABLET 1 tab by m outh daily LISINOPRIL-HYDROCHLOROTHIAZIDE 92464371904 No Longer Active Mitch Urbina DO Active LISINOPRIL 20 MG ORAL TABLET 1 tab po at HS LIS INOPRIL 52707555657 No Longer Active Mitch Urbina DO Active COUMADIN 5 MG ORAL TABLET 1 by mouth every other day 2 WARFARIN SODIUM 35416488343 No Longer Active Mitch Urbina DO Active COUMADIN 6 MG ORAL TABLET 1 by mouth every other day 2 WARFARIN SODIUM 55637247397 No Longer Active Mitch Urbina DO Active SIMVASTATIN 40 MG ORAL TABLET 1 tab daily at bedtime SIMVASTATIN 72430251869 Active Maria Rivas RN Active SIMVASTATIN 20 MG ORAL TABLET 1 tab daily at bedtime 2 SIMVASTATIN 45598726355 No Longer Active Mitch Urbina DO Active LOVENOX 100 MG/ML SUBCUTANEOUS SOLUTION One injection twice a da y ENOXAPARIN SODIUM 67871105328 No Longer Active Carmine Yusuf MD Active JANUVIA 100 MG ORAL TABLET 1/2 by mouth every day 2011 SITAGLIPTIN PHOSPHATE 95380813359 No Longer Active Bijal Segal RN Acti ve METFORMIN HCL 500 MG ORAL TABLET 2 by mouth twice daily METFORMIN HCL 55002189805 No Longer Active Renee Oconnor LPN Active COLCRYS 0.6 MG ORAL TABLET 1 po q 6 hours prn gout pain COLCHICINE 23831180665 No Longer Active Camila Reese Active LISINOPRIL 5 MG ORAL TABLET 1 by mouth every day 11/17 LISINOPRIL 83141802992 No Longer Active Nguyen Ana Active KLOR-CON 20 MEQ ORAL PACKET Take one by mouth daily 09/10/08 POTASSIUM CHLORIDE 44971953364 No Longer Active Nguyen Perez Active FUROSEMIDE 40 MG ORAL TABLET 1 by mouth daily F UROSEMIDE 00755631453 No Longer Active Nguyen Perez Active PROVIGIL 100 MG ORAL TABLET Take one by mouth daily 08/20/04 MODAFINIL 07775926431 No Longer Active Mitch Urbina DO Active BACTRIM DS 800-160 MG ORAL TABLET 1 tab by mouth twice daily 201 10/19/09 TRIMETHOPRIM-SULFAMETHOXAZOLE 21320101496 No Longer Active C alberto Hays MD Active ADULT ASPIRIN LOW STRENGTH 81 MG ORAL TABLET DISINTEGR ATING 1 by mouth every daily ASPIRIN 83633367954 Active Mitch Urbina DO Ac tive BACTRIM DS 800-160 MG ORAL TABLET 1 tab by mouth twice daily 201 10/19/09 BACTRIM DS 800-160 MG ORAL TABLET 783779 TRIMETHOPRIM-SULFAMETHOXAZOLE Inactive PROVIGIL 100 MG ORAL TABLET Take one by mouth daily 20 08/20/04 PROVIGIL 100 MG ORAL TABLET 971546 MODAFINIL Inactive FUROSEMIDE 40 MG ORAL TABLET 1 by mouth daily FUROSEMIDE 40 MG ORAL TABLET 478021 FUROSEMIDE Inactive KLOR-CON 20 MEQ ORAL PACKET Take one by mouth daily 09/10/08 KLOR- CON 20 MEQ ORAL PACKET 2417258 POTASSIUM CHLORIDE Inactive LISINOPRIL 5 MG ORAL TABLET 1 by mouth every day 11/17 LISINOPRIL 5 MG ORAL TABLET 383553 LISINOPRIL Inactive COLCRYS 0.6 MG ORAL TABLET 1 po q 6 hours prn gout pain COLCRYS 0.6 MG ORAL TABLET 987707 COLCHICINE Inactive JANUVIA 100 MG ORAL TABLET 1/2 by mouth every day 2011 JANUVIA 100 MG ORAL TABLET SITAGLIPTIN PHOSPHATE Inactive SIMVASTATIN 20 MG ORAL TABLET 1 tab daily at bedtime 2 SIMVASTATIN 20 MG ORAL TABLET 941901 SIMVASTATIN Inactive COUMADIN 6 MG ORAL TABLET 1 by mouth every other day 2 COUMADIN 6 MG ORAL TABLET 207689 WARFARIN SODIUM Inactive COUMADIN 5 MG ORAL TABLET 1 by mouth every other day 2 COUMADIN 5 MG ORAL TABLET 466021 WARFARIN SODIUM Inactive LISINOPRIL 20 MG ORAL TABLET 1 tab po at HS LISINOPRIL 20 MG ORAL TABLET 734730 LISINOPRIL Inactive LISINOPRIL-HYDROCHLOROTHIAZIDE 20-12.5 MG ORAL TABLET 1 tab by m outh daily LISINOPRIL-HYDROCHLOROTHIAZIDE 20-12.5 MG ORAL TABLET 569835 LISINOPRIL-HYDROCHLOROTHIAZIDE Inactive POLYTRIM 16173-8.1 UNIT/ML-% OPHTHALMIC SOLUTION 1 rui p in affected eye every 3 hours while awake x 7 days POLYTRIM 1000 0-0.1 UNIT/ML-% OPHTHALMIC SOLUTION 296576 POLYMYXIN B-TRIMETHOPRIM Inactive COUMADIN 4 MG ORAL TABLET 1 tablet daily COUMADIN 4 MG ORAL TABLET 804241 WARFARIN SODIUM Inactive CLONIDINE HCL 0.1 MG ORAL TABLET 1 po bid 7 days, then 1/2 t ab po bid 7 days CLONIDINE HCL 0.1 MG ORAL TABLET 233260 CLONIDIN E HCL Inactive ALLOPURINOL 300 MG ORAL TABLET Take 1 tablet by mouth daily 2012 ALLOPURINOL 300 MG ORAL TABLET 523931 ALLOPURINOL I nactive MECLIZINE HCL 25 MG ORAL TABLET 1 po tid 3 days, then 1/2 ta b tid 3 days MECLIZINE HCL 25 MG ORAL TABLET 074707 MECLIZINE HCL Inactive AMLODIPINE BESYLATE 5 MG ORAL TABLET 1 tablet by mouth daily 201 01/20/04 AMLODIPINE BESYLATE 5 MG ORAL TABLET 237970 AMLODIPINE BESYLATE Inactive KEFLEX 500 MG ORAL CAPSULE 1 po qid K EFLEX 500 MG ORAL CAPSULE 311264 CEPHALEXIN Inactive COLCRYS 0.6 MG ORAL TABLET 1 tab qid prn gout COLCRYS 0.6 MG ORAL TABLET 593714 COLCHICINE Inactive FAMOTIDINE 20 MG ORAL TABLET by mouth twice a day 2017 FAMOTIDINE 20 MG ORAL TABLET 910172 FAMOTIDINE Inactive GLIMEPIRIDE 2 MG ORAL TABLET 1 po BID GLIMEPIRIDE 2 MG ORAL TABLET 020368 GLIMEPIRIDE Inactive AMLODIPINE BESYLATE 5 MG ORAL TABLET 1 tablet by mouth daily 201 05/19/02 AMLODIPINE BESYLATE 5 MG ORAL TABLET 973380 AMLODIPINE BESYLATE Inactive MITIGARE 0.6 MG ORAL CAPSULE 2 capsules at onset of go ut pain, then take one capsule at 1 hour if symptoms persist. M ITIGARE 0.6 MG ORAL CAPSULE 2663286 COLCHICINE Inactive LOVENOX 100 MG/ML SUBCUTANEOUS SOLUTION One injection twice a da y LOVENOX 100 MG/ML SUBCUTANEOUS SOLUTION 340568 ENOXAPAR IN SODIUM Inactive PREDNISONE 20 MG ORAL TABLET 2 tabs daily for 3 days 1 tab d aily for 3 days PREDNISONE 20 MG ORAL TABLET 363323 PREDNISONE Inactive KEFLEX 500 MG ORAL CAPSULE 1 capsule by mouth three times da rocky x10 days KEFLEX 500 MG ORAL CAPSULE 776378 CEPHALEXIN I nactive Advance Directives Directive Description [...] - Chem istry sodium, serum 138 mmol/L 351-235 1299/11/07 potassium, serum 4.5 mmol/L 3.5-5.2 chloride, serum [...] Panel - Chemistry sodium, serum 140 mmol/L 997-904 1101/11/01 carbon dioxide, venous blood 28.6 mmol/L 21.0-32 [...] 6.1 % 4.3-6.0 sodium, serum 139 mmol/L 980-591 4847/04/06 carbon dioxide, venous blood 29.0 mmol/L 21.0-32 [...] 50-136 Encounters Code Encounter Date Provider Facility CPT-52039 [id number] Vst-Est Level IV 11:57:44 CDT Bru robinson W [facility] CPT-97556 [id number] Vst-Est Level IV 16:21:22 CDT Bru ce W [facility] CPT-94145 Level 3 Est. Patient 15:18:36 CDT Becky anderson APRN [facility] CPT-26156 [id number] Vst-Est Level IV 10:06:35 CDT Bru ce W [facility] CPT-80861 [id number] Vst-Est Level IV 10:52:00 SEGMENT BLOCK LAYER Bru robinson W [facility] CPT-95226 Level 3 Est. Patient 18:25:[address] [facility] CPT-08225 Level 3 Est. Patient 19:43:34 CDT Mitch W Nona luis [facility] CPT-42722 Level 4 Est. Patient 09:30:18 CDT Mitch luis [facility] CPT-83202 Level 3 Est. Patient 15:10:14 CDT Devonjustincarlitos kamara [facility]-69361 Level 3 Est. Patient 15:03:46 CDT Devonsonya Jason Pending sale to [facility]-51350 Level 3 Est. Patient 14:21:06 CDT Mitch luis [facility] CPT-95130 Level 3 Est. Patient 14:52:06 CDT Joe Jason Pending sale to [facility]-51910 Level 3 Est. Patient 09:34:30 SEGMENT BLOCK LAYER Mitch luis [facility]-37474 Level 3 Est. Patient 09:37:15 CDT Mitch luis [facility] CPT-81864 Level 3 Est. Patient 17:01:00 SEGMENT BLOCK LAYER Mitch lusi [facility] CPT-99918 Level 3 Est. Patient 13:53:19 SEGMENT BLOCK LAYER Mitch luis [facility] CPT-65578 Level 3 Est. Patient 19:19:37 SEGMENT BLOCK LAYER Mitch luis [facility] CPT-05642 Level 3 Est. Patient 13:25:53 SEGMENT BLOCK LAYER Tavo toure MD [facility] CPT-71489 Level 3 Est. Patient 18:17:28 CDT Mitch luis [facility] CPT-96813 Level 3 Est. Patient 15:22:57 CDT Mitch luis [facility] CPT-24257 Level 3 Est. Patient 18:21:50 CDT Mitch Ambrose L janelle [facility] CPT-92615 Level 3 Est. Patient 18:20:38 CDT Mitch luis [facility] CPT-82392 Level 3 Est. Patient 15:37:55 CDT Mitch luis [facility] CPT-92679 Level 2 Est. Patient 15:54:44 CDT Carmine benton MD [facility] CPT-77918 Level 3 Est. Patient 21:46:01 SEGMENT BLOCK LAYER Mitch Ambrose Nona luis [facility] CPT-90155 Level 3 Est. Patient 22:15:50 CDT Mitch luis [facility] CPT-51199 Level 3 Est. Patient 10:48:15 CDT Mitch luis [facility] CPT-04188 Level 3 Est. Patient 23:20:57 CDT Tavo toure MD [facility] CPT-14315 Level 3 Est. Patient 16:26:13 CDT Mitch Castellano janelle [facility] Procedures Code Procedure Name Date Entry Date Standard Desc ription CPT-10716 EKG Trac and Interp - XRAY USE ONLY 1 2:03:24 CDT CPT-62364 Venipuncture Draw Fee 12:01:15 CDT CPT-[id number] () Dilated retinal eye exam w/interp manager gyn/hazardous materials driver documented 11:50:34 CDT CPT-05426 Venipuncture Draw Fee 11:20:39 SEGMENT BLOCK LAYER CPT-92652 Venipuncture Draw Fee 18:03:01 SEGMENT BLOCK LAYER CPT-74649 Venipuncture Draw Fee 10:44:42 SEGMENT BLOCK LAYER CPT-60391 Venipuncture Draw Fee 14:46:55 SEGMENT BLOCK LAYER CPT-76880 Venipuncture Draw Fee 08:26:21 CDT CPT-72136 Venous Duplex Left Leg XRAY USE ONLY 10:43:10 CDT CPT-25258 Venipuncture Draw Fee 17:04:55 CDT CPT-60851 Venipuncture Draw Fee 17:20:50 CDT CPT-31455 Venipuncture Draw Fee 18:00:48 CDT CPT-20648 Venipuncture Draw Fee 14:56:20 CDT CPT-JTINJ Asp/Joint Injection 18:47:02 CDT CPT-96616 Venipuncture Draw Fee 09:26:17 CDT CPT-98225 PT/INR - LAB USE ONLY 13:32:49 SEGMENT BLOCK LAYER CPT-54136 Venipuncture Draw Fee 13:32:49 SEGMENT BLOCK LAYER CPT-12277 PT/INR - LAB USE ONLY 10:34:49 SEGMENT BLOCK LAYER CPT-26863 Venipuncture Draw Fee 10:34:48 SEGMENT BLOCK LAYER CPT-81014 PT/INR - LAB USE ONLY 09:22:03 SEGMENT BLOCK LAYER CPT-38783 Venipuncture Draw Fee 09:22:02 SEGMENT BLOCK LAYER CPT-04897 Hemoccult IFOBT - LAB USE ONLY 10:27:22 CDT CPT-09575 Venipuncture Draw Fee 08:27:08 CDT CPT-76196 Liver Profile - LAB USE ONLY 08:27:07 CDT 2 CPT-81903 Microalbumin - LAB USE ONLY 08:27:07 CDT 20 25/05/09 CPT-04769 PT/INR - LAB USE ONLY 08:27:07 CDT CPT-41143 HGBA1C - LAB USE ONLY 08:27:07 CDT CPT-23401 CBC - LAB USE ONLY 08:27:07 CDT CPT-58501 Venipuncture Draw Fee 11:09:14 CDT CPT-43600 Venipuncture Draw Fee 08:32:21 SEGMENT BLOCK LAYER CPT-85529 Venipuncture Draw Fee 09:38:56 SEGMENT BLOCK LAYER CPT-27340 No Charge Offi Visit 21:36:07 CDT 1 CPT-98657 Venipuncture Draw Fee 10:13:28 SEGMENT BLOCK LAYER CPT-30838 Venipuncture Draw Fee 08:31:11 CDT CPT-58131 Aspir/Inject Med Joint 18:17:28 CDT CPT-79583 Venipuncture Draw Fee 10:13:30 CDT CPT-16509 Venipuncture Draw Fee 08:31:43 SEGMENT BLOCK LAYER CPT-JTINJ Joint Injection 18:34:50 CDT CPT-61390 Knee 3V 12:25:09 CDT CPT-19925 Venipuncture Draw Fee 12:15:57 CDT CPT-060 Medical Surveillance Exam 21:31:43 CDT 2011 CPT-25470 Venipuncture Draw Fee 08:32:05 SEGMENT BLOCK LAYER CPT-OV Office Visit 18:19:06 CDT
--- OUTSIDE RECORDS SUMMARY | 2020-01-18 14:13 | XMS REPORT | Clinical Summary ---
[...] Coronary atherosclerosis of unspecified type of vessel, [place] or graft EDEMA 782.3 Resolved Mitch [...] osteomyelitis of left foot Active 01/13 Mitch Urbian DO Diabetes mellitus, type II, controlled w/ [...] TABLET 1 po daily M AGNESIUM OXIDE 48968929036 Active Ruchi DUARTE Active METFORMIN HCL ER TABS 500MG TAKE 2 TABLETS TWICE A DAY METFORMIN HCL 36670137900 Active Ruchi GONZALEZA Active MITIGARE 0.6 MG ORAL CAPSULE 2 capsules at onset of go ut pain, then take one capsule at 1 hour if symptoms persist. COLCHICIN E 15390443431 No Longer Active Mitch Urbina DO Active MINOXIDIL TABS 2.5MG TAKE 1 TABLET TWICE A DAY FOR HIGH BLOO D PRESSURE MINOXIDIL 35105199798 Active Mitch Urbina DO Ac tive JANUVIA TABS 50MG TAKE 1 TABLET DAILY SITAGLIPT IN PHOSPHATE 07876867689 Active Mitch Urbina DO Active INVOKANA TABS 100MG TAKE 1 TABLET DAILY CANAGLIFL OZIN 73901674594 Active Mitch Urbina DO Active AMLODIPINE BESYLATE 5 MG ORAL TABLET 1 tablet by mouth daily 201 05/19/02 AMLODIPINE BESYLATE 75228681849 No Longer Active Maria Briones Active WARFARIN TABS 1MG TAKE 2 TABLETS (2 MG) DAILY WITH THE 5 MG TABLET TO EQUAL 7 MG DAILY WARFARIN SODIUM 78911410919 Active Maria Briones Active WARFARIN SODIUM 5 MG TABS TAKE 1 TABLET DAILY W ARFARIN SODIUM 63218288218 Active Maria Rivas RN Active KEFLEX 500 MG ORAL CAPSULE 1 capsule by mouth three times da rocky x10 days CEPHALEXIN 26918432145 No Longer Active Maria landaverde RN Active METOPROLOL TARTRATE TABS 50MG TAKE 1 TABLET TWICE A DAY ([facility]) METOPROLOL TARTRATE 62884207074 Active Maria Briones Active DOXAZOSIN MESYLATE 2 MG ORAL TABLET 1 po q day for pr ostate and blood pressure DOXAZOSIN MESYLATE 19084751826 Active Mitch Urbina DO Active LOSARTAN TABS 100MG TAKE 1 TABLET DAILY FOR BLOOD PRESSURE LOSARTAN POTASSIUM 54849488765 Active Maria Rivas RN Active FLUTICASONE PROPIONATE 50 MCG/ACT NASAL SUSPENSION 1 s pray each nostril twice daily for 1 week, then once daily FLUTICASONE PA OPIONATE 23692382674 Active Becky Sell CONTRACT PREPARER Active PREDNISONE 20 MG ORAL TABLET 2 tabs daily for 3 days 1 tab d aily for 3 days PREDNISONE 28771666668 No Longer Active Becky Sell CONTRACT PREPARER Active GLIMEPIRIDE 4 MG ORAL TABLET 1 tablet by mouth twice daily f or diabetes GLIMEPIRIDE 29367165898 Active Mitch Urbina DO Active GLIMEPIRIDE 2 MG ORAL TABLET 1 po BID GLIMEPI RIDE 21770847362 No Longer Active Mitch Urbina DO Active PROVIGIL 200 MG ORAL TABLET 1/2 tab po q day MODA FINIL 42106146651 Active Maria Rivas RN Active FAMOTIDINE 20 MG ORAL TABLET by mouth twice a day 2017 FAMOTIDINE 64355677578 No Longer Active Mitch Urbina DO Active COLCRYS 0.6 MG ORAL TABLET 1 tab qid prn gout C OLCHICINE 68522274385 No Longer Active Mitch Urbina DO Active KEFLEX 500 MG ORAL CAPSULE 1 po qid CEPHALEXI N 87108852424 No Longer Active Mitch Urbina DO Active AMLODIPINE BESYLATE 5 MG ORAL TABLET 1 tablet by mouth daily 201 01/20/04 AMLODIPINE BESYLATE 51764886497 No Longer Active Joe fulton APRN Active MECLIZINE HCL 25 MG ORAL TABLET 1 po tid 3 days, then 1/2 ta b tid 3 days MECLIZINE HCL 95477843169 No Longer Active Corey SEGURA Active ALLOPURINOL 300 MG ORAL TABLET Take 1 tablet by mouth daily 2012 ALLOPURINOL 51658649995 No Longer Active Corey SEGURA Active CLONIDINE HCL 0.1 MG ORAL TABLET 1 po bid 7 days, then 1/2 t ab po bid 7 days CLONIDINE HCL 24843257477 No Longer Active Corey SEGURA Active COUMADIN 4 MG ORAL TABLET 1 tablet daily WARFAR IN SODIUM 28403242727 No Longer Active Corey SEGURA Active POLYTRIM 22152-9.1 UNIT/ML-% OPHTHALMIC SOLUTION 1 rui p in affected eye every 3 hours while awake x 7 days POLYMYXIN B-TRIMETHOP RIM 74596997716 No Longer Active Corey SEGURA Active LOSARTAN POTASSIUM-HCTZ 100-12.5 MG ORAL TABLET 1 by m outh daily for high blood pressure LOSARTAN POTASSIUM-HCTZ 72013224629 No Longer A ctive Mitch Urbina DO Active LISINOPRIL-HYDROCHLOROTHIAZIDE 20-12.5 MG ORAL TABLET 1 tab by m outh daily LISINOPRIL-HYDROCHLOROTHIAZIDE 35835167206 No Longer Active Mitch Urbina DO Active LISINOPRIL 20 MG ORAL TABLET 1 tab po at HS LIS INOPRIL 46690752553 No Longer Active Mitch Urbina DO Active COUMADIN 5 MG ORAL TABLET 1 by mouth every other day 2 WARFARIN SODIUM 42694926912 No Longer Active Mitch Urbina DO Active COUMADIN 6 MG ORAL TABLET 1 by mouth every other day 2 WARFARIN SODIUM 82257780345 No Longer Active Mitch Urbina DO Active SIMVASTATIN 40 MG ORAL TABLET 1 tab daily at bedtime SIMVASTATIN 01321400148 Active Maria Rivas RN Active SIMVASTATIN 20 MG ORAL TABLET 1 tab daily at bedtime 2 SIMVASTATIN 45440873025 No Longer Active Mitch Urbina DO Active LOVENOX 100 MG/ML SUBCUTANEOUS SOLUTION One injection twice a da y ENOXAPARIN SODIUM 44376416763 No Longer Active Carmine Yusuf MD Active JANUVIA 100 MG ORAL TABLET 1/2 by mouth every day 2011 SITAGLIPTIN PHOSPHATE 47768014175 No Longer Active Bijal Segal RN Acti ve METFORMIN HCL 500 MG ORAL TABLET 2 by mouth twice daily METFORMIN HCL 90625129226 No Longer Active Renee Oconnor LPN Active COLCRYS 0.6 MG ORAL TABLET 1 po q 6 hours prn gout pain COLCHICINE 91049055239 No Longer Active Camila Reese Active LISINOPRIL 5 MG ORAL TABLET 1 by mouth every day 11/17 LISINOPRIL 23002119406 No Longer Active Nguyen Perez Active KLOR-CON 20 MEQ ORAL PACKET Take one by mouth daily 09/10/08 POTASSIUM CHLORIDE 39295992390 No Longer Active Nguyen Perez Active FUROSEMIDE 40 MG ORAL TABLET 1 by mouth daily F UROSEMIDE 19409571608 No Longer Active Nguyen Perez Active PROVIGIL 100 MG ORAL TABLET Take one by mouth daily 08/20/04 MODAFINIL 97314187345 No Longer Active Mitch Urbina DO Active BACTRIM DS 800-160 MG ORAL TABLET 1 tab by mouth twice daily 201 10/19/09 TRIMETHOPRIM-SULFAMETHOXAZOLE 05352865745 No Longer Active C alberto Hays MD Active ADULT ASPIRIN LOW STRENGTH 81 MG ORAL TABLET DISINTEGR ATING 1 by mouth every daily ASPIRIN 95574598169 Active Mitch Urbina DO Ac tive BACTRIM DS 800-160 MG ORAL TABLET 1 tab by mouth twice daily 201 10/19/09 BACTRIM DS 800-160 MG ORAL TABLET 405744 TRIMETHOPRIM-SULFAMETHOXAZOLE Inactive PROVIGIL 100 MG ORAL TABLET Take one by mouth daily 20 08/20/04 PROVIGIL 100 MG ORAL TABLET 877923 MODAFINIL Inactive FUROSEMIDE 40 MG ORAL TABLET 1 by mouth daily FUROSEMIDE 40 MG ORAL TABLET 881711 FUROSEMIDE Inactive KLOR-CON 20 MEQ ORAL PACKET Take one by mouth daily 09/10/08 KLOR- CON 20 MEQ ORAL PACKET 7710726 POTASSIUM CHLORIDE Inactive LISINOPRIL 5 MG ORAL TABLET 1 by mouth every day 11/17 LISINOPRIL 5 MG ORAL TABLET 630612 LISINOPRIL Inactive COLCRYS 0.6 MG ORAL TABLET 1 po q 6 hours prn gout pain COLCRYS 0.6 MG ORAL TABLET 706856 COLCHICINE Inactive JANUVIA 100 MG ORAL TABLET 1/2 by mouth every day 2011 JANUVIA 100 MG ORAL TABLET SITAGLIPTIN PHOSPHATE Inactive SIMVASTATIN 20 MG ORAL TABLET 1 tab daily at bedtime 2 SIMVASTATIN 20 MG ORAL TABLET 150857 SIMVASTATIN Inactive COUMADIN 6 MG ORAL TABLET 1 by mouth every other day 2 COUMADIN 6 MG ORAL TABLET 776184 WARFARIN SODIUM Inactive COUMADIN 5 MG ORAL TABLET 1 by mouth every other day 2 COUMADIN 5 MG ORAL TABLET 333687 WARFARIN SODIUM Inactive LISINOPRIL 20 MG ORAL TABLET 1 tab po at HS LISINOPRIL 20 MG ORAL TABLET 788004 LISINOPRIL Inactive LISINOPRIL-HYDROCHLOROTHIAZIDE 20-12.5 MG ORAL TABLET 1 tab by m outh daily LISINOPRIL-HYDROCHLOROTHIAZIDE 20-12.5 MG ORAL TABLET 322653 LISINOPRIL-HYDROCHLOROTHIAZIDE Inactive POLYTRIM 21252-0.1 UNIT/ML-% OPHTHALMIC SOLUTION 1 rui p in affected eye every 3 hours while awake x 7 days POLYTRIM 1000 0-0.1 UNIT/ML-% OPHTHALMIC SOLUTION 155269 POLYMYXIN B-TRIMETHOPRIM Inactive COUMADIN 4 MG ORAL TABLET 1 tablet daily COUMADIN 4 MG ORAL TABLET 561427 WARFARIN SODIUM Inactive CLONIDINE HCL 0.1 MG ORAL TABLET 1 po bid 7 days, then 1/2 t ab po bid 7 days CLONIDINE HCL 0.1 MG ORAL TABLET 972165 CLONIDIN E HCL Inactive ALLOPURINOL 300 MG ORAL TABLET Take 1 tablet by mouth daily 2012 ALLOPURINOL 300 MG ORAL TABLET 614752 ALLOPURINOL I nactive MECLIZINE HCL 25 MG ORAL TABLET 1 po tid 3 days, then 1/2 ta b tid 3 days MECLIZINE HCL 25 MG ORAL TABLET 206591 MECLIZINE HCL Inactive AMLODIPINE BESYLATE 5 MG ORAL TABLET 1 tablet by mouth daily 201 01/20/04 AMLODIPINE BESYLATE 5 MG ORAL TABLET 665253 AMLODIPINE BESYLATE Inactive KEFLEX 500 MG ORAL CAPSULE 1 po qid K EFLEX 500 MG ORAL CAPSULE 307001 CEPHALEXIN Inactive COLCRYS 0.6 MG ORAL TABLET 1 tab qid prn gout COLCRYS 0.6 MG ORAL TABLET 344439 COLCHICINE Inactive FAMOTIDINE 20 MG ORAL TABLET by mouth twice a day 2017 FAMOTIDINE 20 MG ORAL TABLET 534226 FAMOTIDINE Inactive GLIMEPIRIDE 2 MG ORAL TABLET 1 po BID GLIMEPIRIDE 2 MG ORAL TABLET 500855 GLIMEPIRIDE Inactive AMLODIPINE BESYLATE 5 MG ORAL TABLET 1 tablet by mouth daily 201 05/19/02 AMLODIPINE BESYLATE 5 MG ORAL TABLET 211756 AMLODIPINE BESYLATE Inactive MITIGARE 0.6 MG ORAL CAPSULE 2 capsules at onset of go ut pain, then take one capsule at 1 hour if symptoms persist. M ITIGARE 0.6 MG ORAL CAPSULE 6829505 COLCHICINE Inactive LOVENOX 100 MG/ML SUBCUTANEOUS SOLUTION One injection twice a da y LOVENOX 100 MG/ML SUBCUTANEOUS SOLUTION 828584 ENOXAPAR IN SODIUM Inactive PREDNISONE 20 MG ORAL TABLET 2 tabs daily for 3 days 1 tab d aily for 3 days PREDNISONE 20 MG ORAL TABLET 617574 PREDNISONE Inactive KEFLEX 500 MG ORAL CAPSULE 1 capsule by mouth three times da rocky x10 days KEFLEX 500 MG ORAL CAPSULE 760272 CEPHALEXIN I nactive Advance Directives Directive Description [...] - Chem istry sodium, serum 138 mmol/L 266-352 2607/11/07 potassium, serum 4.5 mmol/L 3.5-5.2 chloride, serum [...] Panel - Chemistry sodium, serum 140 mmol/L 059-955 7499/11/01 carbon dioxide, venous blood 28.6 mmol/L 21.0-32 [...] 11 .6-14.8 platelet count 326 10^3/MM^3 10*3/mm3 452-267 0355/11/01 erythrocyte (RBC) count 5.24 10^6/MM^3 10*6/mm3 4.50-6.5 [...] 6.1 % 4.3-6.0 sodium, serum 139 mmol/L 906-374 2683/04/06 carbon dioxide, venous blood 29.0 mmol/L 21.0-32 [...] 50-136 Encounters Code Encounter Date Provider Facility CPT-11855 [id number] Vst-Est Level IV 11:57:44 CDT Bru ce W [facility] CPT-69296 [id number] Vst-Est Level IV 16:21:22 CDT Bru ce W [facility] CPT-69591 Level 3 Est. Patient 15:18:36 CDT Becky anderson APRN [facility] CPT-19059 [id number] Vst-Est Level IV 10:06:35 CDT Bru ce W [facility]-26359 72968-Bde Vst-Est Level IV 10:52:00 TREE SPECIALIST Bru ce W [facility] CPT-20581 Level 3 Est. Patient 18:25:53 CDT Mitch Castellano [facility] CPT-91911 Level 3 Est. Patient 19:43:34 CDT Mitch W Nona luis [facility] CPT-49429 Level 4 Est. Patient 09:30:18 CDT Mitch luis [facility] CPT-97843 Level 3 Est. Patient 15:10:14 [facility] Level 3 Est. Patient 15:03:46 CDT Joe Jason [facility] CPT-48385 Level 3 Est. Patient 14:21:06 CDT Mitch luis [facility] CPT-15683 Level 3 Est. Patient 14:52:06 CDT Joe Jason [facility] CPT-37453 Level 3 Est. Patient 09:34:30 TREE SPECIALIST Mitch luis [facility]-72811 Level 3 Est. Patient 09:37:15 CDT Mitch luis [facility] CPT-84710 Level 3 Est. Patient 17:01:00 TREE SPECIALIST Mitch luis [facility] CPT-98817 Level 3 Est. Patient 13:53:19 TREE SPECIALIST Mitch luis [facility] CPT-20013 Level 3 Est. Patient 19:19:37 TREE SPECIALIST Mitch luis [facility] CPT-16288 Level 3 Est. Patient 13:25:53 TREE SPECIALIST Tavo toure MD [facility] CPT-27532 Level 3 Est. Patient 18:17:28 CDT Mitch luis [facility] CPT-91569 Level 3 Est. Patient 15:22:57 CDT Mitch luis [facility] CPT-14024 Level 3 Est. Patient 18:21:50 CDT Mitch luis [facility] CPT-63648 Level 3 Est. Patient 18:20:38 CDT Mitch luis [facility] CPT-28137 Level 3 Est. Patient 15:37:55 CDT Mitch luis [facility] CPT-68604 Level 2 Est. Patient 15:54:44 CDT Carmine benton MD [facility] CPT-56910 Level 3 Est. Patient 21:46:01 TREE SPECIALIST Mitch Ambrose Nona luis [facility] CPT-60141 Level 3 Est. Patient 22:15:50 CDT Mitch luis [facility] CPT-47592 Level 3 Est. Patient 10:48:15 CDT Mitch Castellano janelle [facility] CPT-51562 Level 3 Est. Patient 23:20:57 CDT Tavo toure MD [facility] CPT-61280 Level 3 Est. 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 documented 11:50:34 CDT CPT-85938 Venipuncture Draw Fee 11:20:39 TREE SPECIALIST CPT-86074 Venipuncture Draw Fee 18:03:01 TREE SPECIALIST CPT-05951 Venipuncture Draw Fee 10:44:42 TREE SPECIALIST CPT-89251 Venipuncture Draw Fee 14:46:55 TREE SPECIALIST CPT-05073 Venipuncture Draw Fee 08:26:21 CDT CPT-12296 Venous Duplex Left Leg XRAY USE ONLY 10:43:10 CDT CPT-94134 Venipuncture Draw Fee 17:04:55 CDT CPT-44056 Venipuncture Draw Fee 17:20:50 CDT CPT-27891 Venipuncture Draw Fee 18:00:48 CDT CPT-87468 Venipuncture Draw Fee 14:56:20 CDT CPT-JTINJ Asp/Joint Injection 18:47:02 CDT CPT-08725 Venipuncture Draw Fee 09:26:17 CDT CPT-57429 PT/INR - LAB USE ONLY 13:32:49 TREE SPECIALIST CPT-26272 Venipuncture Draw Fee 13:32:49 TREE SPECIALIST CPT-06692 PT/INR - LAB USE ONLY 10:34:49 TREE SPECIALIST CPT-50217 Venipuncture Draw Fee 10:34:48 TREE SPECIALIST CPT-22519 PT/INR - LAB USE ONLY 09:22:03 TREE SPECIALIST CPT-69232 Venipuncture Draw Fee 09:22:02 TREE SPECIALIST CPT-86710 Hemoccult IFOBT - LAB USE ONLY 10:27:22 CDT CPT-35948 Venipuncture Draw Fee 08:27:08 CDT CPT-84212 Liver Profile - LAB USE ONLY 08:27:07 CDT 2 CPT-93007 Microalbumin - LAB USE ONLY 08:27:07 CDT 20 25/05/09 CPT-11200 PT/INR - LAB USE ONLY 08:27:07 CDT CPT-11842 HGBA1C - LAB USE ONLY 08:27:07 CDT CPT-99389 CBC - LAB USE ONLY 08:27:07 CDT CPT-26326 Venipuncture Draw Fee 11:09:14 CDT CPT-59095 Venipuncture Draw Fee 08:32:21 TREE SPECIALIST CPT-82642 Venipuncture Draw Fee 09:38:56 TREE SPECIALIST CPT-91689 No Charge Offi Visit 21:36:07 CDT 1 CPT-40266 Venipuncture Draw Fee 10:13:28 TREE SPECIALIST CPT-91350 Venipuncture Draw Fee 08:31:11 CDT CPT-40412 Aspir/Inject Med Joint 18:17:28 CDT CPT-01006 Venipuncture Draw Fee 10:13:30 CDT CPT-66972 Venipuncture Draw Fee 08:31:43 TREE SPECIALIST CPT-JTINJ Joint Injection 18:34:50 CDT CPT-29134 Knee 3V 12:25:09 CDT CPT-44660 Venipuncture Draw Fee 12:15:57 CDT CPT-060 Medical Surveillance Exam 21:31:43 CDT 2011 CPT-71521 Venipuncture Draw Fee 08:32:05 TREE SPECIALIST CPT-OV Office Visit 18:19:06 CDT
--- OUTSIDE RECORDS SUMMARY | 2020-01-18 14:13 | XMS REPORT | Clinical Summary ---
Author Author Admin, Mitch Leon Organization [facility] [employer] Address Unknown Phone Unavailable Allergies, Adverse Reactions, [...] TABLET 1 po daily M AGNESIUM OXIDE 59837189227 Active Ruchi DUARTE Active METFORMIN HCL ER TABS 500MG TAKE 2 TABLETS TWICE A DAY METFORMIN HCL 74655311988 Active Ruchi DUARTE Active MITIGARE 0.6 MG ORAL CAPSULE 2 capsules at onset of go ut pain, then take one capsule at 1 hour if symptoms persist. COLCHICIN E 05721955467 No Longer Active Mitch Urbina DO Active MINOXIDIL TABS 2.5MG TAKE 1 TABLET TWICE A DAY FOR HIGH BLOO D PRESSURE MINOXIDIL 68668019203 Active Mitch Urbina DO Ac tive JANUVIA TABS 50MG TAKE 1 TABLET DAILY SITAGLIPT IN PHOSPHATE 92701041922 Active Mitch Urbina DO Active INVOKANA TABS 100MG TAKE 1 TABLET DAILY CANAGLIFL OZIN 43494355658 Active Mitch Urbina DO Active AMLODIPINE BESYLATE 5 MG ORAL TABLET 1 tablet by mouth daily 201 05/19/02 AMLODIPINE BESYLATE 64892554044 No Longer Active Maria Briones Active WARFARIN TABS 1MG TAKE 2 TABLETS (2 MG) DAILY WITH THE 5 MG TABLET TO EQUAL 7 MG DAILY WARFARIN SODIUM 25572999675 Active Maria Briones Active WARFARIN SODIUM 5 MG TABS TAKE 1 TABLET DAILY W ARFARIN SODIUM 69877810667 Active Maria Rivas RN Active KEFLEX 500 MG ORAL CAPSULE 1 capsule by mouth three times da rocky x10 days CEPHALEXIN 69779253055 No Longer Active Maria landaverde RN Active METOPROLOL TARTRATE TABS 50MG TAKE 1 TABLET TWICE A DAY ([facility]) METOPROLOL TARTRATE 91227680525 Active Maria Briones Active DOXAZOSIN MESYLATE 2 MG ORAL TABLET 1 po q day for pr ostate and blood pressure DOXAZOSIN MESYLATE 82274917851 Active Mitch Urbina DO Active LOSARTAN TABS 100MG TAKE 1 TABLET DAILY FOR BLOOD PRESSURE LOSARTAN POTASSIUM 29380808504 Active Maria Rivas RN Active FLUTICASONE PROPIONATE 50 MCG/ACT NASAL SUSPENSION 1 s pray each nostril twice daily for 1 week, then once daily FLUTICASONE CO OPIONATE 83277592278 Active Becky Sell BATTER DEPOSITOR Active PREDNISONE 20 MG ORAL TABLET 2 tabs daily for 3 days 1 tab d aily for 3 days PREDNISONE 78019547943 No Longer Active Becky Sell BATTER DEPOSITOR Active GLIMEPIRIDE 4 MG ORAL TABLET 1 tablet by mouth twice daily f or diabetes GLIMEPIRIDE 74555348644 Active Mitch Urbina DO Active GLIMEPIRIDE 2 MG ORAL TABLET 1 po BID GLIMEPI RIDE 16372525701 No Longer Active Mitch Urbina DO Active PROVIGIL 200 MG ORAL TABLET 1/2 tab po q day MODA FINIL 20195310180 Active Maria Rivas RN Active FAMOTIDINE 20 MG ORAL TABLET by mouth twice a day 2017 FAMOTIDINE 11942731157 No Longer Active Mitch Urbina DO Active COLCRYS 0.6 MG ORAL TABLET 1 tab qid prn gout C OLCHICINE 19351266376 No Longer Active Mitch Urbina DO Active KEFLEX 500 MG ORAL CAPSULE 1 po qid CEPHALEXI N 15109021094 No Longer Active Mitch Urbina DO Active AMLODIPINE BESYLATE 5 MG ORAL TABLET 1 tablet by mouth daily 201 01/20/04 AMLODIPINE BESYLATE 55516689900 No Longer Active Joe fulton APRN Active MECLIZINE HCL 25 MG ORAL TABLET 1 po tid 3 days, then 1/2 ta b tid 3 days MECLIZINE HCL 81577721196 No Longer Active Corey SEGURA Active ALLOPURINOL 300 MG ORAL TABLET Take 1 tablet by mouth daily 2012 ALLOPURINOL 17414923440 No Longer Active Corey SEGURA Active CLONIDINE HCL 0.1 MG ORAL TABLET 1 po bid 7 days, then 1/2 t ab po bid 7 days CLONIDINE HCL 34696835398 No Longer Active Corey SEGURA Active COUMADIN 4 MG ORAL TABLET 1 tablet daily WARFAR IN SODIUM 41213145459 No Longer Active Corey SEGURA Active POLYTRIM 04544-9.1 UNIT/ML-% OPHTHALMIC SOLUTION 1 rui p in affected eye every 3 hours while awake x 7 days POLYMYXIN B-TRIMETHOP RIM 31444833480 No Longer Active Corey SEGURA Active LOSARTAN POTASSIUM-HCTZ 100-12.5 MG ORAL TABLET 1 by m outh daily for high blood pressure LOSARTAN POTASSIUM-HCTZ 46029926755 No Longer A ctive Mitch Urbina DO Active LISINOPRIL-HYDROCHLOROTHIAZIDE 20-12.5 MG ORAL TABLET 1 tab by m outh daily LISINOPRIL-HYDROCHLOROTHIAZIDE 86144818250 No Longer Active Mitch Urbina DO Active LISINOPRIL 20 MG ORAL TABLET 1 tab po at HS LIS INOPRIL 59059574744 No Longer Active Mitch Urbina DO Active COUMADIN 5 MG ORAL TABLET 1 by mouth every other day 2 WARFARIN SODIUM 20309674887 No Longer Active Mitch Urbina DO Active COUMADIN 6 MG ORAL TABLET 1 by mouth every other day 2 WARFARIN SODIUM 38324630665 No Longer Active Mitch Urbina DO Active SIMVASTATIN 40 MG ORAL TABLET 1 tab daily at bedtime SIMVASTATIN 31572995516 Active Maria Rivas RN Active SIMVASTATIN 20 MG ORAL TABLET 1 tab daily at bedtime 2 SIMVASTATIN 89317112508 No Longer Active Mitch Urbina DO Active LOVENOX 100 MG/ML SUBCUTANEOUS SOLUTION One injection twice a da y ENOXAPARIN SODIUM 23128617228 No Longer Active Carmine Yusuf MD Active JANUVIA 100 MG ORAL TABLET 1/2 by mouth every day 2011 SITAGLIPTIN PHOSPHATE 17904794336 No Longer Active Bijal Segal RN Acti ve METFORMIN HCL 500 MG ORAL TABLET 2 by mouth twice daily METFORMIN HCL 10205631541 No Longer Active Rneee Oconnor LPN Active COLCRYS 0.6 MG ORAL TABLET 1 po q 6 hours prn gout pain COLCHICINE 76574890915 No Longer Active Camila Reese Active LISINOPRIL 5 MG ORAL TABLET 1 by mouth every day 11/17 LISINOPRIL 14333413420 No Longer Active Nguyen Ana Active KLOR-CON 20 MEQ ORAL PACKET Take one by mouth daily 09/10/08 POTASSIUM CHLORIDE 16285851255 No Longer Active Nguyen Perez Active FUROSEMIDE 40 MG ORAL TABLET 1 by mouth daily F UROSEMIDE 75124026989 No Longer Active Nguyen Perez Active PROVIGIL 100 MG ORAL TABLET Take one by mouth daily 08/20/04 MODAFINIL 33238257591 No Longer Active Mitch Urbina DO Active BACTRIM DS 800-160 MG ORAL TABLET 1 tab by mouth twice daily 201 10/19/09 TRIMETHOPRIM-SULFAMETHOXAZOLE 67090898657 No Longer Active C alberto Hays MD Active ADULT ASPIRIN LOW STRENGTH 81 MG ORAL TABLET DISINTEGR ATING 1 by mouth every daily ASPIRIN 71972014413 Active Mitch Urbina DO Ac tive BACTRIM DS 800-160 MG ORAL TABLET 1 tab by mouth twice daily 201 10/19/09 BACTRIM DS 800-160 MG ORAL TABLET 167269 TRIMETHOPRIM-SULFAMETHOXAZOLE Inactive PROVIGIL 100 MG ORAL TABLET Take one by mouth daily 20 08/20/04 PROVIGIL 100 MG ORAL TABLET 051690 MODAFINIL Inactive FUROSEMIDE 40 MG ORAL TABLET 1 by mouth daily FUROSEMIDE 40 MG ORAL TABLET 955645 FUROSEMIDE Inactive KLOR-CON 20 MEQ ORAL PACKET Take one by mouth daily 09/10/08 KLOR- CON 20 MEQ ORAL PACKET 0545215 POTASSIUM CHLORIDE Inactive LISINOPRIL 5 MG ORAL TABLET 1 by mouth every day 11/17 LISINOPRIL 5 MG ORAL TABLET 609383 LISINOPRIL Inactive COLCRYS 0.6 MG ORAL TABLET 1 po q 6 hours prn gout pain COLCRYS 0.6 MG ORAL TABLET 256551 COLCHICINE Inactive JANUVIA 100 MG ORAL TABLET 1/2 by mouth every day 2011 JANUVIA 100 MG ORAL TABLET SITAGLIPTIN PHOSPHATE Inactive SIMVASTATIN 20 MG ORAL TABLET 1 tab daily at bedtime 2 SIMVASTATIN 20 MG ORAL TABLET 972339 SIMVASTATIN Inactive COUMADIN 6 MG ORAL TABLET 1 by mouth every other day 2 COUMADIN 6 MG ORAL TABLET 245327 WARFARIN SODIUM Inactive COUMADIN 5 MG ORAL TABLET 1 by mouth every other day 2 COUMADIN 5 MG ORAL TABLET 781303 WARFARIN SODIUM Inactive LISINOPRIL 20 MG ORAL TABLET 1 tab po at HS LISINOPRIL 20 MG ORAL TABLET 860135 LISINOPRIL Inactive LISINOPRIL-HYDROCHLOROTHIAZIDE 20-12.5 MG ORAL TABLET 1 tab by m outh daily LISINOPRIL-HYDROCHLOROTHIAZIDE 20-12.5 MG ORAL TABLET 699536 LISINOPRIL-HYDROCHLOROTHIAZIDE Inactive POLYTRIM 34125-7.1 UNIT/ML-% OPHTHALMIC SOLUTION 1 uri p in affected eye every 3 hours while awake x 7 days POLYTRIM 1000 0-0.1 UNIT/ML-% OPHTHALMIC SOLUTION 069241 POLYMYXIN B-TRIMETHOPRIM Inactive COUMADIN 4 MG ORAL TABLET 1 tablet daily COUMADIN 4 MG ORAL TABLET 759934 WARFARIN SODIUM Inactive CLONIDINE HCL 0.1 MG ORAL TABLET 1 po bid 7 days, then 1/2 t ab po bid 7 days CLONIDINE HCL 0.1 MG ORAL TABLET 225370 CLONIDIN E HCL Inactive ALLOPURINOL 300 MG ORAL TABLET Take 1 tablet by mouth daily 2012 ALLOPURINOL 300 MG ORAL TABLET 929746 ALLOPURINOL I nactive MECLIZINE HCL 25 MG ORAL TABLET 1 po tid 3 days, then 1/2 ta b tid 3 days MECLIZINE HCL 25 MG ORAL TABLET 938653 MECLIZINE HCL Inactive AMLODIPINE BESYLATE 5 MG ORAL TABLET 1 tablet by mouth daily 201 01/20/04 AMLODIPINE BESYLATE 5 MG ORAL TABLET 139981 AMLODIPINE BESYLATE Inactive KEFLEX 500 MG ORAL CAPSULE 1 po qid K EFLEX 500 MG ORAL CAPSULE 739319 CEPHALEXIN Inactive COLCRYS 0.6 MG ORAL TABLET 1 tab qid prn gout COLCRYS 0.6 MG ORAL TABLET 738687 COLCHICINE Inactive FAMOTIDINE 20 MG ORAL TABLET by mouth twice a day 2017 FAMOTIDINE 20 MG ORAL TABLET 060640 FAMOTIDINE Inactive GLIMEPIRIDE 2 MG ORAL TABLET 1 po BID GLIMEPIRIDE 2 MG ORAL TABLET 411181 GLIMEPIRIDE Inactive AMLODIPINE BESYLATE 5 MG ORAL TABLET 1 tablet by mouth daily 201 05/19/02 AMLODIPINE BESYLATE 5 MG ORAL TABLET 751157 AMLODIPINE BESYLATE Inactive MITIGARE 0.6 MG ORAL CAPSULE 2 capsules at onset of go ut pain, then take one capsule at 1 hour if symptoms persist. M ITIGARE 0.6 MG ORAL CAPSULE 6013035 COLCHICINE Inactive LOVENOX 100 MG/ML SUBCUTANEOUS SOLUTION One injection twice a da y LOVENOX 100 MG/ML SUBCUTANEOUS SOLUTION 041910 ENOXAPAR IN SODIUM Inactive PREDNISONE 20 MG ORAL TABLET 2 tabs daily for 3 days 1 tab d aily for 3 days PREDNISONE 20 MG ORAL TABLET 909732 PREDNISONE Inactive KEFLEX 500 MG ORAL CAPSULE 1 capsule by mouth three times da rocky x10 days KEFLEX 500 MG ORAL CAPSULE 632538 CEPHALEXIN I nactive Advance Directives Directive Description [...] - Chem istry sodium, serum 138 mmol/L 959-186 4012/11/07 potassium, serum 4.5 mmol/L 3.5-5.2 chloride, serum [...] Panel - Chemistry sodium, serum 140 mmol/L 334-958 3308/11/01 carbon dioxide, venous blood 28.6 mmol/L 21.0-32 [...] 6.1 % 4.3-6.0 sodium, serum 139 mmol/L 448-851 3754/04/06 carbon dioxide, venous blood 29.0 mmol/L 21.0-32 [...] 50-136 Encounters Code Encounter Date Provider Facility CPT-29023 [id number] Vst-Est Level IV 11:57:44 CDT Bru robinson W [facility] CPT-08694 [id number] Vst-Est Level IV 16:21:22 CDT Bru ce W [facility] CPT-58253 Level 3 Est. Patient 15:18:36 CDT Becky anderson APRN [facility] CPT-63507 [id number] Vst-Est Level IV 10:06:35 CDT Bru ce W [facility] CPT-63759 06138-Nsx Vst-Est Level IV 10:52:00 POST OFFICE MARKUP CLERK Bru robinson W [facility] CPT-77597 Level 3 Est. Patient 18:25:53 CDT Mitch Castellano [facility] CPT-87112 Level 3 Est. Patient 19:43:34 CDT Mitch W Nona luis [facility] CPT-69032 Level 4 Est. Patient 09:30:18 CDT Mitch luis [facility] CPT-58524 Level 3 Est. Patient 15:10:14 CDT Devonjustincarlitos kamara [facility]-47420 Level 3 Est. Patient 15:03:46 CDT Devonsonya [facility]45 Level 3 Est. Patient 14:21:06 CDT Micth luis [facility] CPT-65736 Level 3 Est. Patient 14:52:06 CDT Joe [facility]-47102 Level 3 Est. Patient 09:34:30 POST OFFICE MARKUP CLERK Mitch luis [facility]-96314 Level 3 Est. Patient 09:37:15 CDT Mitch luis [facility] CPT-32144 Level 3 Est. Patient 17:01:00 POST OFFICE MARKUP CLERK Mitch luis [facility] CPT-80651 Level 3 Est. Patient 13:53:19 POST OFFICE MARKUP CLERK Mitch luis [facility] CPT-26181 Level 3 Est. Patient 19:19:37 POST OFFICE MARKUP CLERK Mitch luis [facility] CPT-45469 Level 3 Est. Patient 13:25:53 POST OFFICE MARKUP CLERK Tavo toure MD [facility] CPT-95002 Level 3 Est. Patient 18:17:28 CDT Mitch luis [facility] CPT-55015 Level 3 Est. Patient 15:22:57 CDT Mitch luis [facility] CPT-76615 Level 3 Est. Patient 18:21:50 CDT Mitch Ambrose L janelle [facility] CPT-00875 Level 3 Est. Patient 18:20:38 CDT Mitch luis [facility] CPT-19829 Level 3 Est. Patient 15:37:55 CDT Mitch luis [facility] CPT-33613 Level 2 Est. Patient 15:54:44 CDT Carmine benton MD [facility] CPT-74693 Level 3 Est. Patient 21:46:01 POST OFFICE MARKUP CLERK Mitch Ambrose Nona luis [facility] CPT-02585 Level 3 Est. Patient 22:15:50 CDT Mitch luis [facility] CPT-17468 Level 3 Est. Patient 10:48:15 CDT Mitch luis [facility] CPT-70541 Level 3 Est. Patient 23:20:57 CDT Tavo toure MD [facility] CPT-96253 Level 3 Est. 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 documented 11:50:34 CDT CPT-36999 Venipuncture Draw Fee 11:20:39 POST OFFICE MARKUP CLERK CPT-73558 Venipuncture Draw Fee 18:03:01 POST OFFICE MARKUP CLERK CPT-54278 Venipuncture Draw Fee 10:44:42 POST OFFICE MARKUP CLERK CPT-92086 Venipuncture Draw Fee 14:46:55 POST OFFICE MARKUP CLERK CPT-39337 Venipuncture Draw Fee 08:26:21 CDT CPT-95957 Venous Duplex Left Leg XRAY USE ONLY 10:43:10 CDT CPT-57638 Venipuncture Draw Fee 17:04:55 CDT CPT-80326 Venipuncture Draw Fee 17:20:50 CDT CPT-53410 Venipuncture Draw Fee 18:00:48 CDT CPT-82689 Venipuncture Draw Fee 14:56:20 CDT CPT-JTINJ Asp/Joint Injection 18:47:02 CDT CPT-59447 Venipuncture Draw Fee 09:26:17 CDT CPT-70371 PT/INR - LAB USE ONLY 13:32:49 POST OFFICE MARKUP CLERK CPT-61806 Venipuncture Draw Fee 13:32:49 POST OFFICE MARKUP CLERK CPT-15746 PT/INR - LAB USE ONLY 10:34:49 POST OFFICE MARKUP CLERK CPT-66284 Venipuncture Draw Fee 10:34:48 POST OFFICE MARKUP CLERK CPT-72497 PT/INR - LAB USE ONLY 09:22:03 POST OFFICE MARKUP CLERK CPT-56911 Venipuncture Draw Fee 09:22:02 POST OFFICE MARKUP CLERK CPT-63745 Hemoccult IFOBT - LAB USE ONLY 10:27:22 CDT CPT-91419 Venipuncture Draw Fee 08:27:08 CDT CPT-02099 Liver Profile - LAB USE ONLY 08:27:07 CDT 2 CPT-93929 Microalbumin - LAB USE ONLY 08:27:07 CDT 20 25/05/09 CPT-15872 PT/INR - LAB USE ONLY 08:27:07 CDT CPT-30712 HGBA1C - LAB USE ONLY 08:27:07 CDT CPT-74553 CBC - LAB USE ONLY 08:27:07 CDT CPT-68549 Venipuncture Draw Fee 11:09:14 CDT CPT-31265 Venipuncture Draw Fee 08:32:21 POST OFFICE MARKUP CLERK CPT-84420 Venipuncture Draw Fee 09:38:56 POST OFFICE MARKUP CLERK CPT-73450 No Charge Offi Visit 21:36:07 CDT 1 CPT-68426 Venipuncture Draw Fee 10:13:28 POST OFFICE MARKUP CLERK CPT-85070 Venipuncture Draw Fee 08:31:11 CDT CPT-09200 Aspir/Inject Med Joint 18:17:28 CDT CPT-58918 Venipuncture Draw Fee 10:13:30 CDT CPT-19658 Venipuncture Draw Fee 08:31:43 POST OFFICE MARKUP CLERK CPT-JTINJ Joint Injection 18:34:50 CDT CPT-15838 Knee 3V 12:25:09 CDT CPT-23061 Venipuncture Draw Fee 12:15:57 CDT CPT-060 Medical Surveillance Exam 21:31:43 CDT 2011 CPT-60466 Venipuncture Draw Fee 08:32:05 POST OFFICE MARKUP CLERK CPT-OV Office Visit 18:19:06 CDT
--- OUTSIDE RECORDS SUMMARY | 2020-01-18 14:14 | XMS REPORT | Clinical Summary ---
Author Author Admin, Mitch Leon Organization [facility] Address Unknown Phone Unavailable Allergies, Adverse [...] Coronary atherosclerosis of unspecified type of vessel, [place] or graft EDEMA 782.3 Resolved Mitch Urbina [...] TABLET 1 po daily M AGNESIUM OXIDE 03091069761 Active Ruchi DUARTE Active METFORMIN HCL ER TABS 500MG TAKE 2 TABLETS TWICE A DAY METFORMIN HCL 03621986163 Active Ruchi DUARTE Active MITIGARE 0.6 MG ORAL CAPSULE 2 capsules at onset of go ut pain, then take one capsule at 1 hour if symptoms persist. COLCHICIN E 98513690022 No Longer Active Mitch Urbina DO Active MINOXIDIL TABS 2.5MG TAKE 1 TABLET TWICE A DAY FOR HIGH BLOO D PRESSURE MINOXIDIL 49069338592 Active Mitch Urbina DO Ac tive JANUVIA TABS 50MG TAKE 1 TABLET DAILY SITAGLIPT IN PHOSPHATE 14220195548 Active Mitch Urbina DO Active INVOKANA TABS 100MG TAKE 1 TABLET DAILY CANAGLIFL OZIN 38621588283 Active Mitch Urbina DO Active AMLODIPINE BESYLATE 5 MG ORAL TABLET 1 tablet by mouth daily 201 05/19/02 AMLODIPINE BESYLATE 64891004600 No Longer Active Maria Briones Active WARFARIN TABS 1MG TAKE 2 TABLETS (2 MG) DAILY WITH THE 5 MG TABLET TO EQUAL 7 MG DAILY WARFARIN SODIUM 14647901477 Active Maria Briones Active WARFARIN SODIUM 5 MG TABS TAKE 1 TABLET DAILY W ARFARIN SODIUM 47072674098 Active Maria Rivas RN Active KEFLEX 500 MG ORAL CAPSULE 1 capsule by mouth three times da rocky x10 days CEPHALEXIN 62145200539 No Longer Active Maria landaverde RN Active METOPROLOL TARTRATE TABS 50MG TAKE 1 TABLET TWICE A DAY ([facility]) METOPROLOL TARTRATE 42799945688 Active Maria Briones Active DOXAZOSIN MESYLATE 2 MG ORAL TABLET 1 po q day for pr ostate and blood pressure DOXAZOSIN MESYLATE 11224511350 Active Mitch Urbina DO Active LOSARTAN TABS 100MG TAKE 1 TABLET DAILY FOR BLOOD PRESSURE LOSARTAN POTASSIUM 04839038084 Active Maria Rivas RN Active FLUTICASONE PROPIONATE 50 MCG/ACT NASAL SUSPENSION 1 s pray each nostril twice daily for 1 week, then once daily FLUTICASONE ID OPIONATE 71736192608 Active Becky Sell SAMPLE PREP TECHNICIAN Active PREDNISONE 20 MG ORAL TABLET 2 tabs daily for 3 days 1 tab d aily for 3 days PREDNISONE 05430945812 No Longer Active Becky Sell SAMPLE PREP TECHNICIAN Active GLIMEPIRIDE 4 MG ORAL TABLET 1 tablet by mouth twice daily f or diabetes GLIMEPIRIDE 39589482319 Active Mitch Urbina DO Active GLIMEPIRIDE 2 MG ORAL TABLET 1 po BID GLIMEPI RIDE 94106170358 No Longer Active Mitch Urbina DO Active PROVIGIL 200 MG ORAL TABLET 1/2 tab po q day MODA FINIL 20714954867 Active Maria Rivas RN Active FAMOTIDINE 20 MG ORAL TABLET by mouth twice a day 2017 FAMOTIDINE 40249109493 No Longer Active Mitch Urbina DO Active COLCRYS 0.6 MG ORAL TABLET 1 tab qid prn gout C OLCHICINE 14020967263 No Longer Active Mitch Urbina DO Active KEFLEX 500 MG ORAL CAPSULE 1 po qid CEPHALEXI N 35296826496 No Longer Active Mitch Urbina DO Active AMLODIPINE BESYLATE 5 MG ORAL TABLET 1 tablet by mouth daily 201 01/20/04 AMLODIPINE BESYLATE 23073226568 No Longer Active Joe fulton APRN Active MECLIZINE HCL 25 MG ORAL TABLET 1 po tid 3 days, then 1/2 ta b tid 3 days MECLIZINE HCL 07920487343 No Longer Active Corey SEGURA Active ALLOPURINOL 300 MG ORAL TABLET Take 1 tablet by mouth daily 2012 ALLOPURINOL 64136076822 No Longer Active Corey SEGURA Active CLONIDINE HCL 0.1 MG ORAL TABLET 1 po bid 7 days, then 1/2 t ab po bid 7 days CLONIDINE HCL 04855685528 No Longer Active Corey SEGURA Active COUMADIN 4 MG ORAL TABLET 1 tablet daily WARFAR IN SODIUM 43039113118 No Longer Active Corey SEGURA Active POLYTRIM 73827-4.1 UNIT/ML-% OPHTHALMIC SOLUTION 1 rui p in affected eye every 3 hours while awake x 7 days POLYMYXIN B-TRIMETHOP RIM 84595666704 No Longer Active Corey SEGURA Active LOSARTAN POTASSIUM-HCTZ 100-12.5 MG ORAL TABLET 1 by m outh daily for high blood pressure LOSARTAN POTASSIUM-HCTZ 64763510530 No Longer A ctive Mitch Urbina DO Active LISINOPRIL-HYDROCHLOROTHIAZIDE 20-12.5 MG ORAL TABLET 1 tab by m outh daily LISINOPRIL-HYDROCHLOROTHIAZIDE 23645474556 No Longer Active Mitch Urbina DO Active LISINOPRIL 20 MG ORAL TABLET 1 tab po at HS LIS INOPRIL 04116027700 No Longer Active Mitch Urbina DO Active COUMADIN 5 MG ORAL TABLET 1 by mouth every other day 2 WARFARIN SODIUM 07012507554 No Longer Active Mitch Urbina DO Active COUMADIN 6 MG ORAL TABLET 1 by mouth every other day 2 WARFARIN SODIUM 90230300005 No Longer Active Mitch Urbina DO Active SIMVASTATIN 40 MG ORAL TABLET 1 tab daily at bedtime SIMVASTATIN 76405513203 Active Maria Rivas RN Active SIMVASTATIN 20 MG ORAL TABLET 1 tab daily at bedtime 2 SIMVASTATIN 75671224627 No Longer Active Mitch Urbina DO Active LOVENOX 100 MG/ML SUBCUTANEOUS SOLUTION One injection twice a da y ENOXAPARIN SODIUM 15815230128 No Longer Active Carmine Yusuf MD Active JANUVIA 100 MG ORAL TABLET 1/2 by mouth every day 2011 SITAGLIPTIN PHOSPHATE 47381408844 No Longer Active Bijal Segal RN Acti ve METFORMIN HCL 500 MG ORAL TABLET 2 by mouth twice daily METFORMIN HCL 72275223182 No Longer Active Renee Oconnor LPN Active COLCRYS 0.6 MG ORAL TABLET 1 po q 6 hours prn gout pain COLCHICINE 78815985637 No Longer Active Camila Reese Active LISINOPRIL 5 MG ORAL TABLET 1 by mouth every day 11/17 LISINOPRIL 85725231487 No Longer Active Nguyen Ana Active KLOR-CON 20 MEQ ORAL PACKET Take one by mouth daily 09/10/08 POTASSIUM CHLORIDE 57499134689 No Longer Active Nguyen Perez Active FUROSEMIDE 40 MG ORAL TABLET 1 by mouth daily F UROSEMIDE 78347356140 No Longer Active Nguyen Perez Active PROVIGIL 100 MG ORAL TABLET Take one by mouth daily 08/20/04 MODAFINIL 03448135966 No Longer Active Mitch Urbina DO Active BACTRIM DS 800-160 MG ORAL TABLET 1 tab by mouth twice daily 201 10/19/09 TRIMETHOPRIM-SULFAMETHOXAZOLE 58932324990 No Longer Active C alberto Hays MD Active ADULT ASPIRIN LOW STRENGTH 81 MG ORAL TABLET DISINTEGR ATING 1 by mouth every daily ASPIRIN 57629673844 Active Mitch Urbina DO Ac tive BACTRIM DS 800-160 MG ORAL TABLET 1 tab by mouth twice daily 201 10/19/09 BACTRIM DS 800-160 MG ORAL TABLET 418983 TRIMETHOPRIM-SULFAMETHOXAZOLE Inactive PROVIGIL 100 MG ORAL TABLET Take one by mouth daily 20 08/20/04 PROVIGIL 100 MG ORAL TABLET 060863 MODAFINIL Inactive FUROSEMIDE 40 MG ORAL TABLET 1 by mouth daily FUROSEMIDE 40 MG ORAL TABLET 611703 FUROSEMIDE Inactive KLOR-CON 20 MEQ ORAL PACKET Take one by mouth daily 09/10/08 KLOR- CON 20 MEQ ORAL PACKET 1658189 POTASSIUM CHLORIDE Inactive LISINOPRIL 5 MG ORAL TABLET 1 by mouth every day 11/17 LISINOPRIL 5 MG ORAL TABLET 212821 LISINOPRIL Inactive COLCRYS 0.6 MG ORAL TABLET 1 po q 6 hours prn gout pain COLCRYS 0.6 MG ORAL TABLET 085883 COLCHICINE Inactive JANUVIA 100 MG ORAL TABLET 1/2 by mouth every day 2011 JANUVIA 100 MG ORAL TABLET SITAGLIPTIN PHOSPHATE Inactive SIMVASTATIN 20 MG ORAL TABLET 1 tab daily at bedtime 2 SIMVASTATIN 20 MG ORAL TABLET 501211 SIMVASTATIN Inactive COUMADIN 6 MG ORAL TABLET 1 by mouth every other day 2 COUMADIN 6 MG ORAL TABLET 644924 WARFARIN SODIUM Inactive COUMADIN 5 MG ORAL TABLET 1 by mouth every other day 2 COUMADIN 5 MG ORAL TABLET 026150 WARFARIN SODIUM Inactive LISINOPRIL 20 MG ORAL TABLET 1 tab po at HS LISINOPRIL 20 MG ORAL TABLET 634047 LISINOPRIL Inactive LISINOPRIL-HYDROCHLOROTHIAZIDE 20-12.5 MG ORAL TABLET 1 tab by m outh daily LISINOPRIL-HYDROCHLOROTHIAZIDE 20-12.5 MG ORAL TABLET 121236 LISINOPRIL-HYDROCHLOROTHIAZIDE Inactive POLYTRIM 06499-4.1 UNIT/ML-% OPHTHALMIC SOLUTION 1 rui p in affected eye every 3 hours while awake x 7 days POLYTRIM 1000 0-0.1 UNIT/ML-% OPHTHALMIC SOLUTION 253832 POLYMYXIN B-TRIMETHOPRIM Inactive COUMADIN 4 MG ORAL TABLET 1 tablet daily COUMADIN 4 MG ORAL TABLET 654801 WARFARIN SODIUM Inactive CLONIDINE HCL 0.1 MG ORAL TABLET 1 po bid 7 days, then 1/2 t ab po bid 7 days CLONIDINE HCL 0.1 MG ORAL TABLET 015521 CLONIDIN E HCL Inactive ALLOPURINOL 300 MG ORAL TABLET Take 1 tablet by mouth daily 2012 ALLOPURINOL 300 MG ORAL TABLET 749387 ALLOPURINOL I nactive MECLIZINE HCL 25 MG ORAL TABLET 1 po tid 3 days, then 1/2 ta b tid 3 days MECLIZINE HCL 25 MG ORAL TABLET 584616 MECLIZINE HCL Inactive AMLODIPINE BESYLATE 5 MG ORAL TABLET 1 tablet by mouth daily 201 01/20/04 AMLODIPINE BESYLATE 5 MG ORAL TABLET 107333 AMLODIPINE BESYLATE Inactive KEFLEX 500 MG ORAL CAPSULE 1 po qid K EFLEX 500 MG ORAL CAPSULE 577773 CEPHALEXIN Inactive COLCRYS 0.6 MG ORAL TABLET 1 tab qid prn gout COLCRYS 0.6 MG ORAL TABLET 263388 COLCHICINE Inactive FAMOTIDINE 20 MG ORAL TABLET by mouth twice a day 2017 FAMOTIDINE 20 MG ORAL TABLET 672782 FAMOTIDINE Inactive GLIMEPIRIDE 2 MG ORAL TABLET 1 po BID GLIMEPIRIDE 2 MG ORAL TABLET 868932 GLIMEPIRIDE Inactive AMLODIPINE BESYLATE 5 MG ORAL TABLET 1 tablet by mouth daily 201 05/19/02 AMLODIPINE BESYLATE 5 MG ORAL TABLET 033879 AMLODIPINE BESYLATE Inactive MITIGARE 0.6 MG ORAL CAPSULE 2 capsules at onset of go ut pain, then take one capsule at 1 hour if symptoms persist. M ITIGARE 0.6 MG ORAL CAPSULE 5473121 COLCHICINE Inactive LOVENOX 100 MG/ML SUBCUTANEOUS SOLUTION One injection twice a da y LOVENOX 100 MG/ML SUBCUTANEOUS SOLUTION 362089 ENOXAPAR IN SODIUM Inactive PREDNISONE 20 MG ORAL TABLET 2 tabs daily for 3 days 1 tab d aily for 3 days PREDNISONE 20 MG ORAL TABLET 629506 PREDNISONE Inactive KEFLEX 500 MG ORAL CAPSULE 1 capsule by mouth three times da rocky x10 days KEFLEX 500 MG ORAL CAPSULE 495451 CEPHALEXIN I nactive Advance Directives Directive Description [...] - Chem istry sodium, serum 138 mmol/L 128-790 8311/11/07 potassium, serum 4.5 mmol/L 3.5-5.2 chloride, serum [...] Panel - Chemistry sodium, serum 140 mmol/L 913-971 1193/11/01 carbon dioxide, venous blood 28.6 mmol/L 21.0-32 [...] 6.1 % 4.3-6.0 sodium, serum 139 mmol/L 891-713 3910/04/06 carbon dioxide, venous blood 29.0 mmol/L 21.0-32 [...] 50-136 Encounters Code Encounter Date Provider Facility CPT-12039 [id number] Vst-Est Level IV 11:57:44 CDT Bru robinson W [facility] CPT-28570 [id number] Vst-Est Level IV 16:21:22 CDT Bru ce W [facility] CPT-33399 Level 3 Est. Patient 15:18:36 CDT Becky anderson [facility] CPT-51258 [id number] Vst-Est Level IV 10:06:35 CDT Bru ce W [facility] CPT-86896 [id number] Vst-Est Level IV 10:52:00 MOTOR VEHICLE FIELD REPRESENTATIVE Bru robinson W [facility] CPT-71742 Level 3 Est. Patient 18:25:53 CDT Mitch Castellano [facility] CPT-72983 Level 3 Est. Patient 19:43:34 CDT Mitch W Nona luis [facility] CPT-41991 Level 4 Est. Patient 09:30:18 CDT Mitch luis [facility] CPT-49947 Level 3 Est. Patient 15:10:14 CDT Devonjustincarlitos kamara [facility]-07678 Level 3 Est. Patient 15:03:46 CDT Devonsonya Jason [facility]-99423 Level 3 Est. Patient 14:21:06 CDT Mitch luis [facility] CPT-27962 Level 3 Est. Patient 14:52:06 CDT Joe Jason [facility]-48052 Level 3 Est. Patient 09:34:30 MOTOR VEHICLE FIELD REPRESENTATIVE Mitch luis [facility]-38637 Level 3 Est. Patient 09:37:15 CDT Mitch luis [facility] CPT-30382 Level 3 Est. Patient 17:01:00 MOTOR VEHICLE FIELD REPRESENTATIVE Mitch luis [facility] CPT-31120 Level 3 Est. Patient 13:53:19 MOTOR VEHICLE FIELD REPRESENTATIVE Mitch luis [facility] CPT-38750 Level 3 Est. Patient 19:19:37 MOTOR VEHICLE FIELD REPRESENTATIVE Mitch luis [facility] CPT-19746 Level 3 Est. Patient 13:25:53 MOTOR VEHICLE FIELD REPRESENTATIVE Tavo toure MD [facility] CPT-74355 Level 3 Est. Patient 18:17:28 CDT Mitch luis [facility] CPT-14257 Level 3 Est. Patient 15:22:57 CDT Mitch luis [facility] CPT-05631 Level 3 Est. Patient 18:21:50 CDT Mitch Ambrose L janelle [facility] CPT-21318 Level 3 Est. Patient 18:20:38 CDT Mitch luis [facility] CPT-74555 Level 3 Est. Patient 15:37:55 CDT Mitch luis [facility] CPT-46528 Level 2 Est. Patient 15:54:44 CDT Carmine benton [facility] CPT-22283 Level 3 Est. Patient 21:46:01 MOTOR VEHICLE FIELD REPRESENTATIVE Mitch Ambrose Nona luis [facility] CPT-32015 Level 3 Est. Patient 22:15:50 CDT Mitch luis [facility] CPT-07238 Level 3 Est. Patient 10:48:15 CDT Mitch luis [facility] CPT-86566 Level 3 Est. Patient 23:20:57 CDT Tavo toure MD [facility] CPT-16858 Level 3 Est. 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 documented 11:50:34 CDT CPT-21346 Venipuncture Draw Fee 11:20:39 MOTOR VEHICLE FIELD REPRESENTATIVE CPT-96063 Venipuncture Draw Fee 18:03:01 MOTOR VEHICLE FIELD REPRESENTATIVE CPT-63729 Venipuncture Draw Fee 10:44:42 MOTOR VEHICLE FIELD REPRESENTATIVE CPT-87476 Venipuncture Draw Fee 14:46:55 MOTOR VEHICLE FIELD REPRESENTATIVE CPT-17571 Venipuncture Draw Fee 08:26:21 CDT CPT-65469 Venous Duplex Left Leg XRAY USE ONLY 10:43:10 CDT CPT-80550 Venipuncture Draw Fee 17:04:55 CDT CPT-24356 Venipuncture Draw Fee 17:20:50 CDT CPT-49706 Venipuncture Draw Fee 18:00:48 CDT CPT-35545 Venipuncture Draw Fee 14:56:20 CDT CPT-JTINJ Asp/Joint Injection 18:47:02 CDT CPT-40544 Venipuncture Draw Fee 09:26:17 CDT CPT-66877 PT/INR - LAB USE ONLY 13:32:49 MOTOR VEHICLE FIELD REPRESENTATIVE CPT-28883 Venipuncture Draw Fee 13:32:49 MOTOR VEHICLE FIELD REPRESENTATIVE CPT-30130 PT/INR - LAB USE ONLY 10:34:49 MOTOR VEHICLE FIELD REPRESENTATIVE CPT-64554 Venipuncture Draw Fee 10:34:48 MOTOR VEHICLE FIELD REPRESENTATIVE CPT-38351 PT/INR - LAB USE ONLY 09:22:03 MOTOR VEHICLE FIELD REPRESENTATIVE CPT-67028 Venipuncture Draw Fee 09:22:02 MOTOR VEHICLE FIELD REPRESENTATIVE CPT-42730 Hemoccult IFOBT - LAB USE ONLY 10:27:22 CDT CPT-94443 Venipuncture Draw Fee 08:27:08 CDT CPT-48146 Liver Profile - LAB USE ONLY 08:27:07 CDT 2 CPT-31438 Microalbumin - LAB USE ONLY 08:27:07 CDT 20 25/05/09 CPT-48992 PT/INR - LAB USE ONLY 08:27:07 CDT CPT-95397 HGBA1C - LAB USE ONLY 08:27:07 CDT CPT-12715 CBC - LAB USE ONLY 08:27:07 CDT CPT-89448 Venipuncture Draw Fee 11:09:14 CDT CPT-45270 Venipuncture Draw Fee 08:32:21 MOTOR VEHICLE FIELD REPRESENTATIVE CPT-12485 Venipuncture Draw Fee 09:38:56 MOTOR VEHICLE FIELD REPRESENTATIVE CPT-12265 No Charge Offi Visit 21:36:07 CDT 1 CPT-80888 Venipuncture Draw Fee 10:13:28 MOTOR VEHICLE FIELD REPRESENTATIVE CPT-23955 Venipuncture Draw Fee 08:31:11 CDT CPT-37717 Aspir/Inject Med Joint 18:17:28 CDT CPT-74798 Venipuncture Draw Fee 10:13:30 CDT CPT-60948 Venipuncture Draw Fee 08:31:43 MOTOR VEHICLE FIELD REPRESENTATIVE CPT-JTINJ Joint Injection 18:34:50 CDT CPT-45557 Knee 3V 12:25:09 CDT CPT-28503 Venipuncture Draw Fee 12:15:57 CDT CPT-060 Medical Surveillance Exam 21:31:43 CDT 2011 CPT-39389 Venipuncture Draw Fee 08:32:05 MOTOR VEHICLE FIELD REPRESENTATIVE CPT-OV Office Visit 18:19:06 CDT
--- OUTSIDE RECORDS SUMMARY | 2020-01-18 14:14 | XMS REPORT | Clinical Summary ---
Author Author Admin, Mitch Leon Organization [facility] Turned On Digital Address Unknown Phone Unavailable Allergies, Adverse Reactions, [...] Coronary atherosclerosis of unspecified type of vessel, ho-chunk or graft EDEMA 782.3 Resolved Mitch Urbina [...] premature beats Preoperative examination V72.84 Active Mitch ulis DO Preoperative examination, unspecified Low hemoglobin 285.9 [...] TABLET 1 po daily M AGNESIUM OXIDE 61712934020 Active Ruchi DUARTE Active METFORMIN HCL ER TABS 500MG TAKE 2 TABLETS TWICE A DAY METFORMIN HCL 75423800151 Active Ruchi DUARTE Active MITIGARE 0.6 MG ORAL CAPSULE 2 capsules at onset of go ut pain, then take one capsule at 1 hour if symptoms persist. COLCHICIN E 88847650115 No Longer Active Mitch Urbina DO Active MINOXIDIL TABS 2.5MG TAKE 1 TABLET TWICE A DAY FOR HIGH BLOO D PRESSURE MINOXIDIL 72307417553 Active Mitch Urbina DO Ac tive JANUVIA TABS 50MG TAKE 1 TABLET DAILY SITAGLIPT IN PHOSPHATE 58190811218 Active Mitch Urbina DO Active INVOKANA TABS 100MG TAKE 1 TABLET DAILY CANAGLIFL OZIN 58018780289 Active Mitch Urbina DO Active AMLODIPINE BESYLATE 5 MG ORAL TABLET 1 tablet by mouth daily 201 05/19/02 AMLODIPINE BESYLATE 18428759144 No Longer Active Maria Briones Active WARFARIN TABS 1MG TAKE 2 TABLETS (2 MG) DAILY WITH THE 5 MG TABLET TO EQUAL 7 MG DAILY WARFARIN SODIUM 53454661941 Active Maria Briones Active WARFARIN SODIUM 5 MG TABS TAKE 1 TABLET DAILY W ARFARIN SODIUM 31410746755 Active Maria Rivas RN Active KEFLEX 500 MG ORAL CAPSULE 1 capsule by mouth three times da rocky x10 days CEPHALEXIN 74714479611 No Longer Active Maria landaverde RN Active METOPROLOL TARTRATE TABS 50MG TAKE 1 TABLET TWICE A DAY ([facility]) METOPROLOL TARTRATE 30835530427 Active Maria Briones Active DOXAZOSIN MESYLATE 2 MG ORAL TABLET 1 po q day for pr ostate and blood pressure DOXAZOSIN MESYLATE 41282162735 Active Mitch Urbina DO Active LOSARTAN TABS 100MG TAKE 1 TABLET DAILY FOR BLOOD PRESSURE LOSARTAN POTASSIUM 03648262725 Active Maria Rivas RN Active FLUTICASONE PROPIONATE 50 MCG/ACT NASAL SUSPENSION 1 s pray each nostril twice daily for 1 week, then once daily FLUTICASONE FL OPIONATE 16895672277 Active Becky Sell BUTTONHOLE MAKER Active PREDNISONE 20 MG ORAL TABLET 2 tabs daily for 3 days 1 tab d aily for 3 days PREDNISONE 34003145204 No Longer Active Becky Sell BUTTONHOLE MAKER Active GLIMEPIRIDE 4 MG ORAL TABLET 1 tablet by mouth twice daily f or diabetes GLIMEPIRIDE 94746110556 Active Mitch Urbina DO Active GLIMEPIRIDE 2 MG ORAL TABLET 1 po BID GLIMEPI RIDE 58229879394 No Longer Active Mitch Urbina DO Active PROVIGIL 200 MG ORAL TABLET 1/2 tab po q day MODA FINIL 59060924044 Active Maria Rivas RN Active FAMOTIDINE 20 MG ORAL TABLET by mouth twice a day 2017 FAMOTIDINE 76019578298 No Longer Active Mitch Urbina DO Active COLCRYS 0.6 MG ORAL TABLET 1 tab qid prn gout C OLCHICINE 25259614482 No Longer Active Mitch Urbina DO Active KEFLEX 500 MG ORAL CAPSULE 1 po qid CEPHALEXI N 12864452642 No Longer Active Mitch Urbina DO Active AMLODIPINE BESYLATE 5 MG ORAL TABLET 1 tablet by mouth daily 201 01/20/04 AMLODIPINE BESYLATE 94077617914 No Longer Active Joe fulton APRN Active MECLIZINE HCL 25 MG ORAL TABLET 1 po tid 3 days, then 1/2 ta b tid 3 days MECLIZINE HCL 03485699103 No Longer Active Corey SEGURA Active ALLOPURINOL 300 MG ORAL TABLET Take 1 tablet by mouth daily 2012 ALLOPURINOL 79766911094 No Longer Active Corey SEGURA Active CLONIDINE HCL 0.1 MG ORAL TABLET 1 po bid 7 days, then 1/2 t ab po bid 7 days CLONIDINE HCL 20805021307 No Longer Active Corey SEGURA Active COUMADIN 4 MG ORAL TABLET 1 tablet daily WARFAR IN SODIUM 53066781024 No Longer Active Corey SEGURA Active POLYTRIM 89728-7.1 UNIT/ML-% OPHTHALMIC SOLUTION 1 rui p in affected eye every 3 hours while awake x 7 days POLYMYXIN B-TRIMETHOP RIM 34424418693 No Longer Active Corey SEGURA Active LOSARTAN POTASSIUM-HCTZ 100-12.5 MG ORAL TABLET 1 by m outh daily for high blood pressure LOSARTAN POTASSIUM-HCTZ 32265121437 No Longer A ctive Mitch Urbina DO Active LISINOPRIL-HYDROCHLOROTHIAZIDE 20-12.5 MG ORAL TABLET 1 tab by m outh daily LISINOPRIL-HYDROCHLOROTHIAZIDE 86922330038 No Longer Active Mitch Urbina DO Active LISINOPRIL 20 MG ORAL TABLET 1 tab po at HS LIS INOPRIL 84946844974 No Longer Active Mitch Urbina DO Active COUMADIN 5 MG ORAL TABLET 1 by mouth every other day 2 WARFARIN SODIUM 67701606268 No Longer Active Mitch Urbina DO Active COUMADIN 6 MG ORAL TABLET 1 by mouth every other day 2 WARFARIN SODIUM 15888741189 No Longer Active Mitch Urbina DO Active SIMVASTATIN 40 MG ORAL TABLET 1 tab daily at bedtime SIMVASTATIN 53020700530 Active Maria Rivas RN Active SIMVASTATIN 20 MG ORAL TABLET 1 tab daily at bedtime 2 SIMVASTATIN 64132836483 No Longer Active Mitch Urbina DO Active LOVENOX 100 MG/ML SUBCUTANEOUS SOLUTION One injection twice a da y ENOXAPARIN SODIUM 44373944274 No Longer Active Carmine Yusuf MD Active JANUVIA 100 MG ORAL TABLET 1/2 by mouth every day 2011 SITAGLIPTIN PHOSPHATE 83993830001 No Longer Active Bijal Segal RN Acti ve METFORMIN HCL 500 MG ORAL TABLET 2 by mouth twice daily METFORMIN HCL 92010616299 No Longer Active Renee Oconnor LPN Active COLCRYS 0.6 MG ORAL TABLET 1 po q 6 hours prn gout pain COLCHICINE 66214659571 No Longer Active Camila Reese Active LISINOPRIL 5 MG ORAL TABLET 1 by mouth every day 11/17 LISINOPRIL 94523186199 No Longer Active Nguyen Ana Active KLOR-CON 20 MEQ ORAL PACKET Take one by mouth daily 09/10/08 POTASSIUM CHLORIDE 82107796251 No Longer Active Nguyen Perez Active FUROSEMIDE 40 MG ORAL TABLET 1 by mouth daily F UROSEMIDE 68425945915 No Longer Active Nguyen Perez Active PROVIGIL 100 MG ORAL TABLET Take one by mouth daily 08/20/04 MODAFINIL 53870053503 No Longer Active Mitch Urbina DO Active BACTRIM DS 800-160 MG ORAL TABLET 1 tab by mouth twice daily 201 10/19/09 TRIMETHOPRIM-SULFAMETHOXAZOLE 09856800555 No Longer Active C alberto Hays MD Active ADULT ASPIRIN LOW STRENGTH 81 MG ORAL TABLET DISINTEGR ATING 1 by mouth every daily ASPIRIN 64691750393 Active Mitch Urbina DO Ac tive BACTRIM DS 800-160 MG ORAL TABLET 1 tab by mouth twice daily 201 10/19/09 BACTRIM DS 800-160 MG ORAL TABLET 413624 TRIMETHOPRIM-SULFAMETHOXAZOLE Inactive PROVIGIL 100 MG ORAL TABLET Take one by mouth daily 20 08/20/04 PROVIGIL 100 MG ORAL TABLET 243708 MODAFINIL Inactive FUROSEMIDE 40 MG ORAL TABLET 1 by mouth daily FUROSEMIDE 40 MG ORAL TABLET 216786 FUROSEMIDE Inactive KLOR-CON 20 MEQ ORAL PACKET Take one by mouth daily 09/10/08 KLOR- CON 20 MEQ ORAL PACKET 4164639 POTASSIUM CHLORIDE Inactive LISINOPRIL 5 MG ORAL TABLET 1 by mouth every day 11/17 LISINOPRIL 5 MG ORAL TABLET 810390 LISINOPRIL Inactive COLCRYS 0.6 MG ORAL TABLET 1 po q 6 hours prn gout pain COLCRYS 0.6 MG ORAL TABLET 859915 COLCHICINE Inactive JANUVIA 100 MG ORAL TABLET 1/2 by mouth every day 2011 JANUVIA 100 MG ORAL TABLET SITAGLIPTIN PHOSPHATE Inactive SIMVASTATIN 20 MG ORAL TABLET 1 tab daily at bedtime 2 SIMVASTATIN 20 MG ORAL TABLET 047643 SIMVASTATIN Inactive COUMADIN 6 MG ORAL TABLET 1 by mouth every other day 2 COUMADIN 6 MG ORAL TABLET 796032 WARFARIN SODIUM Inactive COUMADIN 5 MG ORAL TABLET 1 by mouth every other day 2 COUMADIN 5 MG ORAL TABLET 783701 WARFARIN SODIUM Inactive LISINOPRIL 20 MG ORAL TABLET 1 tab po at HS LISINOPRIL 20 MG ORAL TABLET 735625 LISINOPRIL Inactive LISINOPRIL-HYDROCHLOROTHIAZIDE 20-12.5 MG ORAL TABLET 1 tab by m outh daily LISINOPRIL-HYDROCHLOROTHIAZIDE 20-12.5 MG ORAL TABLET 208906 LISINOPRIL-HYDROCHLOROTHIAZIDE Inactive POLYTRIM 89680-3.1 UNIT/ML-% OPHTHALMIC SOLUTION 1 rui p in affected eye every 3 hours while awake x 7 days POLYTRIM 1000 0-0.1 UNIT/ML-% OPHTHALMIC SOLUTION 975381 POLYMYXIN B-TRIMETHOPRIM Inactive COUMADIN 4 MG ORAL TABLET 1 tablet daily COUMADIN 4 MG ORAL TABLET 880829 WARFARIN SODIUM Inactive CLONIDINE HCL 0.1 MG ORAL TABLET 1 po bid 7 days, then 1/2 t ab po bid 7 days CLONIDINE HCL 0.1 MG ORAL TABLET 432519 CLONIDIN E HCL Inactive ALLOPURINOL 300 MG ORAL TABLET Take 1 tablet by mouth daily 2012 ALLOPURINOL 300 MG ORAL TABLET 489894 ALLOPURINOL I nactive MECLIZINE HCL 25 MG ORAL TABLET 1 po tid 3 days, then 1/2 ta b tid 3 days MECLIZINE HCL 25 MG ORAL TABLET 920917 MECLIZINE HCL Inactive AMLODIPINE BESYLATE 5 MG ORAL TABLET 1 tablet by mouth daily 201 01/20/04 AMLODIPINE BESYLATE 5 MG ORAL TABLET 209770 AMLODIPINE BESYLATE Inactive KEFLEX 500 MG ORAL CAPSULE 1 po qid K EFLEX 500 MG ORAL CAPSULE 242045 CEPHALEXIN Inactive COLCRYS 0.6 MG ORAL TABLET 1 tab qid prn gout COLCRYS 0.6 MG ORAL TABLET 503263 COLCHICINE Inactive FAMOTIDINE 20 MG ORAL TABLET by mouth twice a day 2017 FAMOTIDINE 20 MG ORAL TABLET 863208 FAMOTIDINE Inactive GLIMEPIRIDE 2 MG ORAL TABLET 1 po BID GLIMEPIRIDE 2 MG ORAL TABLET 854205 GLIMEPIRIDE Inactive AMLODIPINE BESYLATE 5 MG ORAL TABLET 1 tablet by mouth daily 201 05/19/02 AMLODIPINE BESYLATE 5 MG ORAL TABLET 165310 AMLODIPINE BESYLATE Inactive MITIGARE 0.6 MG ORAL CAPSULE 2 capsules at onset of go ut pain, then take one capsule at 1 hour if symptoms persist. M ITIGARE 0.6 MG ORAL CAPSULE 6212363 COLCHICINE Inactive LOVENOX 100 MG/ML SUBCUTANEOUS SOLUTION One injection twice a da y LOVENOX 100 MG/ML SUBCUTANEOUS SOLUTION 591589 ENOXAPAR IN SODIUM Inactive PREDNISONE 20 MG ORAL TABLET 2 tabs daily for 3 days 1 tab d aily for 3 days PREDNISONE 20 MG ORAL TABLET 309017 PREDNISONE Inactive KEFLEX 500 MG ORAL CAPSULE 1 capsule by mouth three times da rocky x10 days KEFLEX 500 MG ORAL CAPSULE 048508 CEPHALEXIN I nactive Advance Directives Directive Description [...] - Chem istry sodium, serum 138 mmol/L 475-716 4076/11/07 potassium, serum 4.5 mmol/L 3.5-5.2 chloride, serum [...] Panel - Chemistry sodium, serum 140 mmol/L 910-994 0733/11/01 carbon dioxide, venous blood 28.6 mmol/L 21.0-32 [...] 6.1 % 4.3-6.0 sodium, serum 139 mmol/L 151-869 5474/04/06 carbon dioxide, venous blood 29.0 mmol/L 21.0-32 [...] 50-136 Encounters Code Encounter Date Provider Facility CPT-44841 [id number] Vst-Est Level IV 11:57:44 CDT Bru robinson W [facility] CPT-34727 23122-Omu Vst-Est Level IV 16:21:22 CDT Bru ce W [facility] CPT-76049 Level 3 Est. Patient 15:18:36 CDT Becky anderson APRN [facility] CPT-20921 35847-Dbt Vst-Est Level IV 10:06:35 CDT Bru ce W [facility] CPT-39442 77970-Bck Vst-Est Level IV 10:52:00 INSURANCE ADMINISTRATIVE ASSISTANT Bru robinson W [facility] CPT-14074 Level 3 Est. Patient 18:25:53 CDT Mitch Castellano [facility] CPT-33080 Level 3 Est. Patient 19:43:34 CDT Mitch W Nona luis [facility] CPT-72936 Level 4 Est. Patient 09:30:18 CDT Mitch luis [facility] CPT-78518 Level 3 Est. Patient 15:10:14 CDT Devonjustincarlitos kamara [facility]-29522 Level 3 Est. Patient 15:03:46 CDT Devonsonya Jason [facility]-24573 Level 3 Est. Patient 14:21:06 CDT Mitch luis [facility] CPT-00946 Level 3 Est. Patient 14:52:06 CDT Joe Jason [facility]-07848 Level 3 Est. Patient 09:34:30 INSURANCE ADMINISTRATIVE ASSISTANT Mitch luis [facility]-64049 Level 3 Est. Patient 09:37:15 CDT Mitch luis [facility] CPT-19012 Level 3 Est. Patient 17:01:00 INSURANCE ADMINISTRATIVE ASSISTANT Mitch luis [facility] CPT-69472 Level 3 Est. Patient 13:53:19 INSURANCE ADMINISTRATIVE ASSISTANT Mitch luis [facility] CPT-46586 Level 3 Est. Patient 19:19:37 INSURANCE ADMINISTRATIVE ASSISTANT Mitch luis [facility] CPT-41374 Level 3 Est. Patient 13:25:53 INSURANCE ADMINISTRATIVE ASSISTANT Tavo toure MD [facility] CPT-62808 Level 3 Est. Patient 18:17:28 CDT Mitch luis [facility] CPT-44726 Level 3 Est. Patient 15:22:57 CDT Mitch luis [facility] CPT-74182 Level 3 Est. Patient 18:21:50 CDT Mitch Ambrose L janelle [facility] CPT-08498 Level 3 Est. Patient 18:20:38 CDT Mitch luis [facility] CPT-53006 Level 3 Est. Patient 15:37:55 CDT Mitch luis [facility] CPT-33190 Level 2 Est. Patient 15:54:44 CDT Carmine benton MD [facility] CPT-63754 Level 3 Est. Patient 21:46:01 INSURANCE ADMINISTRATIVE ASSISTANT Mitch Ambrose Nona luis [facility] CPT-96650 Level 3 Est. Patient 22:15:50 CDT Mitch luis [facility] CPT-26409 Level 3 Est. Patient 10:48:15 CDT Mitch luis [facility] CPT-99365 Level 3 Est. Patient 23:20:57 CDT Tavo toure MD [facility] CPT-05522 Level 3 Est. Patient 16:26:13 CDT Mitch Castellano janelle [facility] Procedures Code Procedure Name Date Entry Date Standard Desc ription CPT-26412 EKG Trac and Interp - XRAY USE ONLY 1 2:03:24 CDT CPT-51636 Venipuncture Draw Fee 12:01:15 CDT [id number] () Dilated retinal eye exam w/interp counselor at law/build engineer documented 11:50:34 CDT CPT-47939 Venipuncture Draw Fee 11:20:39 INSURANCE ADMINISTRATIVE ASSISTANT CPT-38498 Venipuncture Draw Fee 18:03:01 INSURANCE ADMINISTRATIVE ASSISTANT CPT-69159 Venipuncture Draw Fee 10:44:42 INSURANCE ADMINISTRATIVE ASSISTANT CPT-49358 Venipuncture Draw Fee 14:46:55 INSURANCE ADMINISTRATIVE ASSISTANT CPT-93686 Venipuncture Draw Fee 08:26:21 CDT CPT-90655 Venous Duplex Left Leg XRAY USE ONLY 10:43:10 CDT CPT-89916 Venipuncture Draw Fee 17:04:55 CDT CPT-19315 Venipuncture Draw Fee 17:20:50 CDT CPT-74375 Venipuncture Draw Fee 18:00:48 CDT CPT-70632 Venipuncture Draw Fee 14:56:20 CDT CPT-JTINJ Asp/Joint Injection 18:47:02 CDT CPT-86497 Venipuncture Draw Fee 09:26:17 CDT CPT-76328 PT/INR - LAB USE ONLY 13:32:49 INSURANCE ADMINISTRATIVE ASSISTANT CPT-14796 Venipuncture Draw Fee 13:32:49 INSURANCE ADMINISTRATIVE ASSISTANT CPT-03802 PT/INR - LAB USE ONLY 10:34:49 INSURANCE ADMINISTRATIVE ASSISTANT CPT-72995 Venipuncture Draw Fee 10:34:48 INSURANCE ADMINISTRATIVE ASSISTANT CPT-24744 PT/INR - LAB USE ONLY 09:22:03 INSURANCE ADMINISTRATIVE ASSISTANT CPT-06078 Venipuncture Draw Fee 09:22:02 INSURANCE ADMINISTRATIVE ASSISTANT CPT-64664 Hemoccult IFOBT - LAB USE ONLY 10:27:22 CDT CPT-14313 Venipuncture Draw Fee 08:27:08 CDT CPT-84763 Liver Profile - LAB USE ONLY 08:27:07 CDT 2 CPT-36361 Microalbumin - LAB USE ONLY 08:27:07 CDT 20 25/05/09 CPT-01568 PT/INR - LAB USE ONLY 08:27:07 CDT CPT-89567 HGBA1C - LAB USE ONLY 08:27:07 CDT CPT-61713 CBC - LAB USE ONLY 08:27:07 CDT CPT-20880 Venipuncture Draw Fee 11:09:14 CDT CPT-51434 Venipuncture Draw Fee 08:32:21 INSURANCE ADMINISTRATIVE ASSISTANT CPT-16372 Venipuncture Draw Fee 09:38:56 INSURANCE ADMINISTRATIVE ASSISTANT CPT-83496 No Charge Offi Visit 21:36:07 CDT 1 CPT-53316 Venipuncture Draw Fee 10:13:28 INSURANCE ADMINISTRATIVE ASSISTANT CPT-17378 Venipuncture Draw Fee 08:31:11 CDT CPT-53068 Aspir/Inject Med Joint 18:17:28 CDT CPT-42400 Venipuncture Draw Fee 10:13:30 CDT CPT-60647 Venipuncture Draw Fee 08:31:43 INSURANCE ADMINISTRATIVE ASSISTANT CPT-JTINJ Joint Injection 18:34:50 CDT CPT-07314 Knee 3V 12:25:09 CDT CPT-53878 Venipuncture Draw Fee 12:15:57 CDT CPT-060 Medical Surveillance Exam 21:31:43 CDT 2011 CPT-50887 Venipuncture Draw Fee 08:32:05 INSURANCE ADMINISTRATIVE ASSISTANT CPT-OV Office Visit 18:19:06 CDT
--- OUTSIDE RECORDS SUMMARY | 2020-01-18 14:14 | XMS REPORT | Continuity of Care Document ---
Demographics Preferred Language Unknown Marital Status Unknown [employer] Affiliation Unknown Race Unknown Ethnic Group Unknown Author Organization Unknown Address Unknown Phone Unavailable Allergies Active Description Code Type Severity Reaction Onset Reported/Identified Relationship to Patient Clinical Status Yes penicillins 3 Drug Severe [id number] Yes No Allergy Information Available P1311 30992 Drug Allergy Unknown N/A 020 Yes Penicillins [id number] Drug Aller gy Mild HIVES 01/14/2020 Medications There is no data. Problems Date Dx Coded Attending Type Code Diagnosis Diagnosed By 06/21/2017 Mitch Urbina DO R60.0 Lower extremity edema, left 01/10/2018 Mitch Urbina DO M17.9 Degenerative joint disease, knee, left 07/11/2018 Mitch Urbina DO Z68.32 Body Mass Index 32.0-32.9 Adult 01/09/2019 Mitch Urbina DO E66.9 Obesity Class I (BMI 30-34.9) 03/26/2019 Mitch Urbina DO J45.909 Bronchitis, allergic 08/06/2019 Mitch Urbina DO Z23 Influenza Vaccination for Prophylaxis 08/14/2019 Mitch Urbina DO E83.52 Hypercalcemia 10/23/2019 MITCH URBINA Final E07.9 Disorder of thyroid, unspecified 10/23/2019 MITCH URBINA Reason For Visit E83.52 Hypercalcemia 11/01/2019 TIFF MC APRN Other B95.1 STREPTOCOCCUS, GROUP B, CAUSING DISEASES CLASSD ELSWHR 11/01/2019 TIFF MC APRN Other B95.62 METHICILLIN RESIS STAPH INFCT CAUSING DISEASES CLASSD ELSWHR 11/01/2019 TIFF MC APRN Other E11.621 TYPE 2 DIABETES MELLITUS WITH FOOT ULCER 11/01/2019 TIFF MC APRN Other E78.5 HYPERLIPIDEMIA, UNSPECIFIED 11/01/2019 TIFF MC APRN Other I10 ESSENTIAL (PRIMARY) HYPERTENSION 11/01/2019 TIFF MC APRN Other I25.10 ATHSCL HEART DISEASE OF [place] CORONARY ARTERY W/O ANG PCTRS 11/01/2019 TIFF MC SPEECH COMMUNICATION PROFESSOR Other I89.0 LYMPHEDEMA, NOT ELSEWHERE CLASSIFIED 11/01/2019 TIFF MC SPEECH COMMUNICATION PROFESSOR Other L97.522 NON-PRS CHRONIC ULCER OTH PRT LEFT FOOT W FAT LAYER EX POSED 11/01/2019 TIFF MC SPEECH COMMUNICATION PROFESSOR Other Z79.84 LONGTERM (CURRENT) USE OF ORAL HYPOGLYCEMIC DRUGS 12/06/2019 LOYDA CHACKO Reason For Visit E83.52 Hypercalcemia 12/06/2019 RICCOLOYDA BELL B Final N28. 1 Cyst of kidney, acquired 12/12/2019 Reason For Visit H26.9 Unspecified cataract 12/13/2019 Reason For Visit H26.9 Unspecified cataract 01/08/2020 Ot E11.9 TYPE 2 DIABETES MELLITUS WITHOUT COMPLIC 01/08/2020 Ot M10.9 GOUT , UNSPECIFIED 01/08/2020 Ot M19.072 MA IMARY OSTEOARTHRITIS, LEFT ANKLE AND F 01/08/2020 Ot M86.8X7 OT HER OSTEOMYELITIS, ANKLE AND FOOT 01/08/2020 Ot E11.9 TYPE 2 DIABETES MELLITUS WITHOUT COMPLIC 01/08/2020 Ot M10.9 GOUT , UNSPECIFIED 01/08/2020 Ot M19.072 MA IMARY OSTEOARTHRITIS, LEFT ANKLE AND F 01/08/2020 Ot M86.8X7 OT HER OSTEOMYELITIS, ANKLE AND FOOT 01/08/2020 Ot E11.9 TYPE 2 DIABETES MELLITUS WITHOUT COMPLIC 01/08/2020 Ot M10.9 GOUT , UNSPECIFIED 01/08/2020 Ot M19.072 MA IMARY OSTEOARTHRITIS, LEFT ANKLE AND F 01/08/2020 Ot M86.8X7 OT HER OSTEOMYELITIS, ANKLE AND FOOT 01/14/2020 Mitch Urbina DO E11.51 Diabetes mellitus, type II, controlled w/ vascular complications 01/14/2020 Mitch Urbina DO M86.172 Acute osteomyelitis of left foot 01/14/2020 Mitch Urbina DO Z01.818 Preoperative examination 01/14/2020 Mitch Urbina DO I49.3 Ventricular ectopy, asymptomatic 01/14/2020 Mitch Urbina DO Z68.33 BMI 33-33.9 01/14/2020 Mitch Urbina DO Z79.01 Long- term (current) use of anticoagulants 01/14/2020 RENÉ DPM, DONOVAN Q Ot Z01.818 ENCOUNTER FOR OTHER PREPROCEDURAL EXAMIN 01/14/2020 Carlitos Mitch D64.9 Low hemoglobin Procedures There is no data. Results Test Result Range Capillary blood glucose measurement by g lucometer (mass/volume) - 01/18/20 11:57 Capillary blood glucose measurement by glucometer (mas s/volume) 125 mg/dL 70-110 Encounters ACCT No. Visit Date/Time Discharge Status Pt. Type Provider Facility Loc./Unit Complaint [id number] 12/12/2019 10:14:00 Document Registration [id number] 12/12/2019 08:47:00 Document Registration [email or web address] 08/31/2019 13:24:58 ACT Document Registration [id number] 01/14/2020 10:46:27 ACT Unknown Mitch Urbina DO [id number] 12/06/2019 12:52:15 0 23:59:59 DIS Outpatient LOYDA CHACKO [facility] RAD [id number] 10/23/2019 10:19:56 0 23:59:59 DIS Outpatient MITCH URBINA [facility] RAD [id number] 01/29/2019 14:41:25 9 23:59:59 DIS Outpatient MITCH URBINA [facility] LAB [id number] 12/29/2018 12:53:45 9 23:59:59 DIS Outpatient MITCH URBINA [facility] LAB [id number] 01/22/2017 19:28:21 7 09:00:00 CONCEPCIÓN BONNER [facility] RANULFO INF Mechanical Heart Valve; Pre- op Colonoscopy on 01-25-17 [id number] 01/13/2017 15:02:06 7 23:59:59 CLS Preadmit CONCEPCIÓN WARE [facility] R[facility] Surgery coloonscopy [id number] 06/26/2016 19:20:52 6 19:40:00 CONCEPCIÓN BONNER [facility] INF preop [id number] 01/17/2020 15:32:11 Document Registration [id number] 12/26/2019 14:58:37 Document Registration [id number] 01/22/2017 19:39:58 Document Registration [id number] 01/14/2020 05:38:00 14:10:00 DIS Outpatient RENÉ DPMNOAHIN Q [facility] PREOP OSTEOMYELITIS LEFT 3RD TOE [id number] 01/18/2020 13:00:00 P EN Preadmit RENÉ DPMNOAHIN Q Via [facility] SDC OSTEOMYELITIS LEFT 3RD TOE [id number] 01/04/2020 09:41:00 Document Registration [id number] 12/18/2019 14:02:00 16:30:00 DIS Outpatient JESUSITATIFF LEE [facility] [id number] 11/01/2019 13:00:00 16:30:00 DIS Outpatient JESUSITATIFF LEE [facility]
--- NOTE | 2020-01-18 14:25 | Anesthesia-General Post-Op ---
MAC Patient Condition Mental Status/LOC: Same as Preop Cardiovascular: Satisfactory Nausea/Vomiting: Absent Respiratory: Satisfactory Pain: Controlled Complications: Absent Post Op Complications Complications None Follow Up Care/Instructions Patient Instructions None needed. Anesthesiology Discharge Order Discharge Order Patient is doing well, no complaints, stable vital signs, no apparent adverse anesthesia problems. No complications reported per nursing. ABRAHAM SEE CRNA Jan 18, 2020 14:25
--- NOTE | 2020-01-18 14:54 | Diagnostic Imaging Report ---
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 There is soft tissue prominence about the forefoot consistent with a recent surgery. There is evidence of amputation of the 3rd distal phalanx with the remaining osseous structures intact but demonstrating diffuse degenerative findings in all interphalangeal joint spaces. There is a hallux valgus deformity with narrowing and spurring at the adjacent 1st metatarsophalangeal joint. Large subchondral cysts and oral periarticular erosions noted along the medial border of the distal 1st metatarsal. There are degenerative changes throughout the midfoot. Spurring is noted along the plantar and posterior aspects of the calcaneus. IMPRESSION: 1. Postoperative changes 3rd digit as above with remaining foot demonstrating diffuse chronic change. Dictated by: Dictated on workstation # [id number]
--- NOTE | 2020-01-18 18:56 | OPERATIVE REPORT ---
DATE OF SERVICE: 01/18/2020 SURGEON: Magdalene Merritt DPM. PREOPERATIVE DIAGNOSIS: Osteomyelitis, left third toe. POSTOPERATIVE DIAGNOSIS: Osteomyelitis, left third toe. PROCEDURE: Partial amputation of left third toe. WOUND CLASS: Contaminated. ANESTHESIA: Monitored anesthesia care. HEMOSTASIS: Pneumatic ankle tourniquet at 250 mmHg. INDICATIONS: This 69-year-old male presents with a chronic wound to the left third toe. X-rays were suspicious and a followup bone scan was performed indicating hotspot to the distal phalanx area of the left third toe. The patient responded fairly well to local wound care as well as oral antibiotic and the toe healed up the distal phalanx ulceration over a few weeks. The patient understands that with a bone infection; however, that can spread and become a complicating factor in the future and is willing to proceed with an amputation of the toe after risks and complications were discussed at length. No guarantees were extended to the patient and he is willing to proceed. DESCRIPTION OF PROCEDURE: The patient was brought back to the operating table, placed in secure supine position. Appropriate timeout was performed. Utilizing aseptic technique, the left third toe was anesthetized utilizing 12 mL of 1:1 mixture of 1% Xylocaine, 0.5% Marcaine injected in a digital block. Left ankle tourniquet was placed over several layers of padding. The left foot was then prepped and draped in the normal sterile manner. The left lower extremity elevated and allowed to exsanguinate after which the tourniquet was inflated to 250 mmHg. Attention was then directed to the dorsal aspect of the left third toe where an incision was created from the dorsal aspect of the distal interphalangeal joint extending medially and laterally shelter to the plantar aspect of the digit. The incision was then extended from that point forward approximately little more than a centimeter and to the plantar aspect of the foot proximal to the original ulceration site. The sharp dissection was carried out down to the interphalangeal joint of the distal aspect of the left third toe and the distal phalanx disarticulated. This specimen was sent for gross and microscopic evaluation. Also, a sample of the distal aspect of the toe was taken of the distal phalanx for culture and sensitivity. The extensor and flexor tendons were identified and cut as proximally as possible. No pathology necrosis or purulent issues were identified with the remaining portion of the left third digit. Power irrigation was then performed to the remainder of the left third toe after which a swab culture was taken to confirm aseptic remaining tissue. The tourniquet was released and there were no active bleeders. There is some oozing was identified. By the end of the case, the plantar flap had good capillary refill time. Closure was then performed with 4-0 Prolene in a simple interrupted type stitch. The skin edges were coapted nicely without skin tension. Postoperative dressing consisted of Betadine soaked Adaptic, sterile 4 x 4, sterile Kerlix all secured with Coban wrap. The patient tolerated the anesthesia and procedure well and was transported from the operating room to the recovery area with vital signs stable and vascular status intact to all remaining digits of the left foot. He is to be partial weightbearing with heel contact only in a surgical splint shoe and utilizing a walker. We will see him in the office in 10 days' period of time or sooner if necessary. Job ID: [id number] DocumentID: [id number] Dictated Date: 01/18/2020 14:04:44 After School Coordinator Date: 01/18/2020 18:55:14 Dictated By: MAGDALENE MERRITT DPM
== END 2020-01-18 16:05 | disposition home or self-care (01) ==
LOC: SDC 11:31
PROVIDERS: ATTEND Podiatrist Foot & Ankle Surgery
DX: M86.8X7 Other osteomyelitis, ankle and foot (principal); E83.52 Hypercalcemia; J45.909 Unspecified asthma, uncomplicated; E11.22 Type 2 diabetes mellitus with diabetic chronic kidney disease; E78.5 Hyperlipidemia, unspecified; I25.10 Atherosclerotic heart disease of native coronary artery without angina pectoris; E11.9 Type 2 diabetes mellitus without complications; I10 Essential (primary) hypertension; G47.419 Narcolepsy without cataplexy; E66.9 Obesity, unspecified; Z68.31 Body mass index [BMI] 31.0-31.9, adult; Z80.0 Family history of malignant neoplasm of digestive organs; Z79.01 Long term (current) use of anticoagulants; Z95.2 Presence of prosthetic heart valve; Z79.51 Long term (current) use of inhaled steroids; Z79.84 Long term (current) use of oral hypoglycemic drugs; Z79.899 Other long term (current) drug therapy; Z79.891 Long term (current) use of opiate analgesic; Z88.0 Allergy status to penicillin; Z87.891 Personal history of nicotine dependence; Z79.82 Long term (current) use of aspirin
CPT/HCPCS: 73620; 82962; 87070; 87075; 87077; 87081; 87101; 87186; 87205

== ENCOUNTER 2020-06-30 06:12 | Outpatient (RCR) | payer BC ==
[~2020-06-30] VITALS: Ht 180.3 cm; Wt 100.0 kg
[~2020-06-30 06:12] MED LIST changes: +CLIN150C2 PO; -WARF1TAB82 PO; +WRF1T PO
[2020-06-30] MEDS ORDERED: ASPI-999 PO (14:37)
[2020-06-30] MEDS ORDERED: MAGN400C PO (14:37)
== END 2020-06-30 14:45 | disposition home or self-care (01) ==
LOC: PREOP 06:12 → EDSTATUS 12:30 → PREOP 14:45
PROVIDERS: ATTEND Podiatrist Foot & Ankle Surgery
DX: Z01.818 Encounter for other preprocedural examination (principal)

== ENCOUNTER 2020-07-07 07:41 | Day surgery (SDC) | payer BC ==
[2020-07-07] VITALS (10 sets, daily range): BP systolic 119–159; BP diastolic 70–78
[~2020-07-07] VITALS: Ht 180.3 cm; Wt 100.0 kg
[~2020-07-07 07:41] MED LIST changes: +ASPI-999 PO; +MAGN400C PO
[2020-07-07] MEDS ORDERED: LACTATED RINGERS 1,000 ML IV PRN (07:51)
[2020-07-07] MEDS ORDERED: ceFAZolin INJECTION 1,000 MG in WATER (STERILE) FOR INJECTION 10 ML IV ONE (08:00)
[2020-07-07] MEDS ORDERED: ONDANSETRON 4 MG/2 ML (SDV) Z0FRAN ONE (08:07)
[2020-07-07] MEDS ORDERED: fentaNYL INJECTION 100 MCG/2 ML AMP ONE (08:07)
[2020-07-07] MEDS ORDERED: MIDAZOLAM 2 MG/2 ML (VERSED) VIAL ONE (08:07)
[2020-07-07] MEDS ORDERED: proPOfol 200 MG/20 ML (DIPRIVAN) VIAL IV ONE (08:07)
[2020-07-07] MEDS ORDERED: LIDOCAINE PF 2% 5 ML (XYLOCAINE) VIAL ONE (08:07)
[2020-07-07] MEDS ORDERED: SEVOFLURANE (ULTANE) 15 ML INHAL SOLN ONE ×10 (08:12→12:06)
[2020-07-07] MEDS ORDERED: LIDOCAINE 1% INJ 20 ML 20 ML VIAL ONE (08:48)
[2020-07-07] MEDS ORDERED: BUPIVACAINE 0.5% 30 ML (SENSORCAINE) VIAL ONE (08:48)
[2020-07-07] MEDS ORDERED: methylPREDNISolone 40 MG/ML (DEPO MEDROL) VIAL ONE (09:12)
--- NOTE | 2020-07-07 09:44 | Progress Note-Pre Operative ---
Pre-Operative Progress Note H&P Reviewed The H&P was reviewed, patient examined and no changes noted. Date Seen by Provider: Jul 07, 2020 Time Seen by Provider: :44 Date H&P Reviewed: Jul 07, 2020 Time H&P Reviewed: :44 Pre-Operative Diagnosis: Hallux Valgus, 2nd Hammertoe, left foot DONOVAN MERRITT DPM Jul 07, 2020 09:44
[2020-07-07] MEDS ORDERED: SUCCINYLCHOLINE INJ 100 MG/5 ML SYR/VIAL ONE (10:05)
[2020-07-07] MEDS ORDERED: LACTATED RINGERS 1,000 ML IV SCH (12:17)
--- NOTE | 2020-07-07 12:17 | Progress Note-Post Operative ---
Post-Operative Progess Note Surgeon (s)/Gardening Instructor (s) Surgeon DONOVAN MERRITT DPM Gardening Instructor: none Pre-Operative Diagnosis Hallux Valgus, 2nd Hammertoe, left foot Post-Operative Diagnosis Same plus gout Procedure & Operative Findings Date of Procedure 07/07/20 Procedure Performed/Findings Jeff-Nader bunionectomy, reduction of hammertoe 2nd, left foot Anesthesia Type General Estimated Blood Loss Estimated blood loss (mL): Minimal Specimens/Packing Specimens Removed Tophi left 1st MTPJ DONOVAN MERRITT DPM Jul 07, 2020 12:17
[2020-07-07] MEDS ORDERED: ACHD5005 PO (12:20)
[2020-07-07] MEDS ORDERED: CLIN150C2 PO (12:20)
[2020-07-07] MEDS ORDERED: MEPERIDINE (DEMEROL) INJ 50 MG/ML IVP ONE (12:30)
[2020-07-07] MEDS ORDERED: ONDANSETRON 4 MG/2 ML (SDV) Z0FRAN IVP PRN (12:30)
[2020-07-07] MEDS ORDERED: HYDROcodone/APAP 5 MG/325 MG (LORTAB) TAB PO PRN (12:30)
[2020-07-07] MEDS ORDERED: morphine INJ 10 MG/ML 1ML (SYR OR VIAL) IVP ONE (12:30)
--- NOTE | 2020-07-07 13:05 | NUR ---
TO AMB SURG FROM PAR PER CART. ALERT, DENIES COMPLAINTS. COBAN WRAPPED KERLIX DRESSING D/I TO LEFT FOOT, ICE PACK AT ANKLE, FOOT ELEVATED. UNABLE TO ASSESS DISTAL FOOT DUE TO OCCLUSIVE DRESSING. PO FLUIDS PROVIDED.
--- NOTE | 2020-07-07 13:20 | Anesthesia-General Post-Op ---
General Patient Condition Mental Status/LOC: Same as Preop Cardiovascular: Satisfactory Nausea/Vomiting: Absent Respiratory: Satisfactory Pain: Controlled Complications: Absent Post Op Complications Complications None Follow Up Care/Instructions Patient Instructions None needed. Anesthesia/Patient Condition Patient Condition Patient is doing well, no complaints, stable vital signs, no apparent adverse anesthesia problems. No complications reported per nursing. YOSEF BUTT CRNA Jul 07, 2020 13:20
--- NOTE | 2020-07-07 13:49 | Diagnostic Imaging Report ---
Left foot at 12:21. Indication: Postop AP and lateral views were obtained. The prior exam of 01/18/2020 noted that the distal phalanx of the 3rd digit had been amputated. There is also severe degenerative disease of the 1st metatarsophalangeal joint. In the interval since the previous exam patient has undergone surgical procedure. There has been an osteotomy of the base of the proximal phalanx of the great toe and there is now an orthopedic fixation wire extending through the head and neck of the 1st metatarsal. There is also another orthopedic fixation wire extending longitudinally through the phalanges of the 2nd digit. The orthopedic hardware appears to be in good position. There is no acute fracture visualized. The Lisfranc joint seems well maintained. The prominent calcaneal spur noted on the prior exam is again evident. Impression: There are postoperative changes involving the 1st and 2nd digits as described above. There is no acute bony abnormality identified. Dictated by: Dictated on workstation # [id number]
--- NOTE | 2020-07-07 14:05 | NUR ---
HAS TAKEN PO FLUIDS WITHOUT PROBLEM. DENIES PAIN. NO CHANGE IN SITE ASSESSMENT. HAS BEEN UP TO BR WITH ASSIST, SURGICAL SHOE ON LEFT FOOT AND HEEL CONTACT ONLY ON LEFT FOOT. VOIDS WITHOUT PROBLEM. STATES HE IS READY FOR DISMISSAL.
--- NOTE | 2020-07-07 22:23 | OPERATIVE REPORT ---
DATE OF SERVICE: 07/07/2020 SURGEON: Donovan Merritt DPM PREOPERATIVE DIAGNOSES: 1. Hallux abductovalgus metatarsal primus varus, left foot. 2. Hammer digit syndrome, left second digit. POSTOPERATIVE DIAGNOSES: 1. Hallux abductovalgus metatarsal primus varus, left foot. 2. Hammer digit syndrome, left second digit. 3. Gout, left foot. PROCEDURES: 1. Modified Jeff-Nader bunionectomy, left. 2. Reduction of hammertoe, left second digit. WOUND CLASS: Clean. ANESTHESIA: General. HEMOSTASIS: Pneumatic thigh tourniquet at 300 mmHg. INDICATIONS: This 69-year-old male presents complaining of a left foot that is painful at times as well as a deformity that is progressive to the great toe and second digits. The patient was warned of risks and complications and conservative therapy is met with unsatisfactory results and the patient is agreeable to surgical intervention after risks and complications were discussed at length. No guarantees were extended to the patient and he is willing to proceed. DESCRIPTION OF PROCEDURE: The patient was brought back to the operating table, placed in secure supine position. A general anesthetic was then induced. Appropriate timeout was performed. Pneumatic thigh tourniquet was placed on the left lower extremity over several layers of padding. The left foot was then prepped and draped in the normal sterile manner. Local anesthetic was induced to the left first metatarsal and second metatarsal in a Aguero block and a local infusion to the second ray utilizing 12 mL of 1:1 mixture of 1% Xylocaine, 0.5% Marcaine. Next, the left foot was then exsanguinate, after which the tourniquet was inflated to 300 mmHg. Attention was then directed to the dorsal aspect of the left first metatarsophalangeal joint where a 6 cm longitudinal linear incision was created. The incision was deepened in the same plane with great care to identify and retract all vital neurovascular structures. Only necessary blood vessels were cauterized as encountered. The incision was deepened down to the capsular tissue medial to the extensor hallucis longus where a longitudinal capsulotomy was performed. Once the incision went into the capsular tissue, it was evident that there is significant amount of tophi present, which was white chalk like material throughout left first metatarsophalangeal joint area. Much of this chalky material was excised as encountered, but it was impossible to resect the entire amount that was present. The first metatarsal had significant degeneration of the hyaline cartilage with some central and plantar cartilage remaining with the majority of the joint had significant damage present at this time. Next, utilizing a power sagittal saw, the medial eminence to the first metatarsal head was resected, after which the dorsal prominence was also resected. This bone was sent for gross and microscopic evaluation along with the tophaceous deposits. The head was further contoured and smoothed with a power rasp and power bur. Next, a blunt dissection was carried out into the first intermetatarsal space where a lateral release was performed. The conjoint tendon of the adductor hallucis was released as well as a lateral capsulorrhaphy and the fibular sesamoidal ligament was also released. The hallux was then forcibly abducted releasing any additional fibers holding in its abnormal position. Attention was redirected to the medial aspect of the first metatarsal head where a Chevron-type osteotomy was performed at the surgical neck allowing the capital fragment to translocate laterally and was fixated in its new position utilizing a 0.054 K-wire driven from proximal dorsal to distal plantar across the osteotomy. The K-wire was cut flush with the dorsal aspect of the first metatarsal. Attention was then directed to the diaphysis of the proximal phalanx where subperiosteal dissection was carried out. Once this was performed, a wedge of bone was resected from the diaphysis with the base medial and lateral cortices held intact. Two marine pilot holes were created at the dorsal medial aspect of the osteotomy allowing a 28-gauge monofilament wire to pass through these holes securing the osteotomy in a closed position. The wound was flushed with copious amounts of normal saline throughout the procedure. Closure was then performed in layers. Deep closure was performed with 3-0 Vicryl, superficial with 4-0 Vicryl, skin closure with 4-0 Prolene in a horizontal mattress type stitch. Attention was then directed to the left second digit where rigid contracture was noted. The incision was created from the metatarsophalangeal joint to the distal interphalangeal joint of the toe. The incision was deepened in the same plane with great care to identify and retract all vital neurovascular structures. The incision was deepened down to the extensor tendon where a Z slide lengthening was performed. The extensor tendon was reflected proximally and the extensor williamson released. A dorsal capsulorrhaphy was performed. A McGlamry elevator was utilized to release any plantar adhesions. This allowed the proximal phalanx to come down in more rectus alignment. Attention was then directed to the head of the proximal phalanx where dissection was exposed. The head of the proximal phalanx and the base of the middle phalanx. The head of the proximal phalanx was fashioned into a peg utilizing power sagittal saw and power bur and a hole was created in the base of the middle phalanx with a power bur. There was a contracture at the distal interphalangeal joint, which was released percutaneously with an 11 blade. Next, a 0.054 K-wire was driven from proximal distal across the arthrodesis site and out the end of the toe. A protective ball was placed over the end of the extruding K-wire. The wound was flushed with copious amounts of normal saline throughout the procedure. A deep closure was then performed with 3-0 Vicryl, superficial with 4-0 Vicryl, skin closure with 4-0 Prolene in a horizontal mattress type stitch. The tourniquet was released noting appropriate cap refill time to all digits of the left foot. Postoperative injection consisted of 12 mL of 1:1 mixture of 0.5% Marcaine and 1% Xylocaine injected in local infusion to the surgical sites. Postoperative injection also included 10 mg of dexamethasone into the left first metatarsophalangeal joint area. The postoperative dressing consisted of Betadine soaked Adaptic, sterile 4 x 4, sterile Kerlix all secured with Coban wrap. The patient tolerated the anesthesia and procedure well, was transported from the operating room to the recovery room with vital signs stable and vascular status intact to all digits of the left foot. He is to follow up in my office in 10 days' period of time or sooner if necessary. In the meantime, he is to rest, ice and elevate. He was given a prescription for clindamycin as well as hydrocodone. Job ID: [id number] DocumentID: [id number] Dictated Date: 07/07/2020 12:30:18 Adjunct Instructor Chemistry Date: 07/07/2020 22:23:26 Dictated By: DONOVAN MERRITT DPM
== END 2020-07-07 14:09 | disposition home or self-care (01) ==
LOC: SDC 07:41
PROVIDERS: ATTEND Podiatrist Foot & Ankle Surgery
DX: M20.12 Hallux valgus (acquired), left foot (principal); M20.42 Other hammer toe(s) (acquired), left foot; M10.072 Idiopathic gout, left ankle and foot; I10 Essential (primary) hypertension; E11.9 Type 2 diabetes mellitus without complications; I25.10 Atherosclerotic heart disease of native coronary artery without angina pectoris; Z79.84 Long term (current) use of oral hypoglycemic drugs; Z79.899 Other long term (current) drug therapy; Z79.82 Long term (current) use of aspirin; Z88.0 Allergy status to penicillin; Z87.891 Personal history of nicotine dependence
CPT/HCPCS: 73620; 82962; 87081

== ENCOUNTER 2021-03-11 08:36 | Day surgery (SDC) | payer BC ==
[2021-03-11] VITALS (12 sets, daily range): BP systolic 116–170; BP diastolic 62–77
[~2021-03-11] VITALS: Ht 180 cm; Wt 96.2 kg
[~2021-03-11 08:36] MED LIST changes: +ACHD5005 PO
[2021-03-11] MEDS ORDERED: NS IV 1000 ML 1,000 ML ONE (08:39)
[2021-03-11] MEDS ORDERED: HEParin (CATH LAB) 2,000 ML IV ONE (08:39)
[2021-03-11] MEDS ORDERED: LIDOCAINE 1% INJ 20 ML 20 ML VIAL ONE (08:39)
--- NOTE | 2021-03-11 09:27 | Diagnostic Imaging Report ---
INDICATION: Preop for peripheral angiography. TIME OF EXAM: 9:11 AM. No prior studies are available for comparison. FINDINGS: There are changes of median sternotomy. Heart size is normal. Lungs are clear. No infiltrates are detected. No effusion or pneumothorax is identified. IMPRESSION: No acute cardiopulmonary process is detected. Dictated by: Dictated on workstation # [id number]
[2021-03-11 09:41] LABS: HEMATOCRIT 45 % (40-54); HEMOGLOBIN 14.3 g/dL (13.3-17.7); MEAN CORPUSCULAR HEMOGLOBIN 28 pg (25-34); MEAN CORPUSCULAR HGB CONC 32 g/dL (32-36); MEAN CORPUSCULAR VOLUME 86 fL (80-99); MEAN PLATELET VOLUME 8.4 fL (9.0-12.2); PLATELET COUNT 136 10^3/uL (130-400); WHITE BLOOD COUNT 6.3 10^3/uL (4.3-11.0)
[2021-03-11 09:57] LABS: INR 1.2 (0.8-1.4); PROTHROMBIN TIME PATIENT 15.3 SEC (12.2-14.7)
[2021-03-11 10:03] LABS: ALANINE AMINOTRANSFERASE 24 U/L (0-55); ALKALINE PHOSPHATASE 41 U/L (40-136); BILIRUBIN,TOTAL 1.2 MG/DL (0.1-1.0); BUN/CREATININE RATIO 24; CALCIUM 10.3 MG/DL (8.5-10.1); CARBON DIOXIDE 23 MMOL/L (21-32); CHLORIDE 107 MMOL/L (98-107); CHOLESTEROL 134 MG/DL (< 200); CREATININE SERUM 0.95 MG/DL (0.60-1.30); GFR ESTIMATED > 60; GLUCOSE 152 MG/DL (70-105); HDL CHOLESTEROL 46 MG/DL (40-60); POTASSIUM 4.4 MMOL/L (3.6-5.0); SODIUM 140 MMOL/L (135-145); TOTAL PROTEIN 7.2 GM/DL (6.4-8.2); TRIGLYCERIDES 127 MG/DL (<150); VLDL CHOLESTEROL 25 MG/DL (5-40)
[2021-03-11] MEDS ORDERED: fentaNYL INJ 100 MCG/2 ML AMP ONE (12:46)
[2021-03-11] MEDS ORDERED: MIDAZOLAM 5 MG/5 ML (VERSED) VIAL ONE (12:46)
[2021-03-11] MEDS ORDERED: HEParin (CATH LAB) 1,000 ML IV ONE (13:16)
[2021-03-11] MEDS ORDERED: HEParin 1000 UNIT/ML (10ML VIAL) FOR BOLUS ONE (13:45)
[2021-03-11] MEDS ORDERED: PROTAMINE 50 MG/5 ML VIAL ONE (14:16)
[2021-03-11] MEDS ORDERED: MIDAZOLAM 2 MG/2 ML (VERSED) VIAL ONE (14:25)
[2021-03-11] MEDS ORDERED: ASPIRIN 325 MG (5 GR) TABLET ONE (14:34)
[2021-03-11] MEDS ORDERED: CLOPIDOGREL 300 MG (PLAVIX) TABLET PO ONE (14:34)
[2021-03-11] MEDS: NS IV 1000 ML 1,000 ML IV SCH ×4 (15:05→20:32)
--- NOTE | 2021-03-11 15:53 | Conscious Sedation/ASA ---
Conscious Sedation Pre-Proced Time 15:53 ASA Score 3 For ASA 3 and 4: Consider anesthesia and medical clearance. Also, for patients with a history of failed moderate sedation consider anesthesia. Airway Lungs Heart ASA score ASA 1: a normal healthy patient ASA 2: a patient with a mild systemic disease (mid diabetes, controlled hypertension, obesity x ASA 3: a patient with a severe systemic disease that limits activity (angina, COPD, prior Myocardial infarction) ASA 4: a patient with an incapacitating disease that is a constant threat to life (CHF, renal failure) ASA 5: a moribund patient not expected to survive 24 hrs. (ruptured aneurysm) ASA 6: a declared brain- patient whose organs are being harvested. For emergent operations, add the letter E after the classification Mallampati Classification Grade 3 Sedation Plan Analgesia, Amnesia, Plan communicated to team members, Discussed options with patient/fam, Discussed risks with patient/fam The patient is an appropriate candidate to undergo the planned procedure, sedation, and anesthesia. The patient immediately re-assessed prior to indication. FAISAL EMERSON MD Mar 11, 2021 15:53
--- NOTE | 2021-03-11 15:55 | Peripheral Report ---
Peripheral Report Physician (s)/Certified Medical Dosimetrist (s) Physician FAISAL EMERSON MD Pre-Procedure Diagnosis Pre-Procedure Diagnosis: Peripheral arterial disease Post-Procedure Note Procedure Start Date: Mar 11, 2021 Name of Procedure: Abdominal aortogram Bilateral lower extremity runoff Third order Additional imaging x3 Balloon angioplasty to the right popliteal artery Findings/Procedure Note PROCEDURE NOTE: 61 years old gentleman with hypertension, hyperlipidemia, had ingrown toenail and pain in his leg, poor circulation, abnormal GIANNI, referred for further evaluation. After explaining the procedure to the patient, all pros and cons were explained, all questions were answered. The patient signed the consent and then he was placed on the cardiac catheterization laboratory. The patient was placed on the cardiac catheterization laboratory. Groin was prepped SL fashion local anesthesia was used. Sheath placed in the left femoral artery, runoff to the left leg was done then I did DSA imaging to the trifurcation. Rim catheter advanced and a wire advanced in the right SFA then exchanged into a straight catheter and runoff to the right leg was done, at that point patient had total occlusion of the right popliteal artery. Straight catheter was removed and sheath was exchanged into 6 Yi 55 sheath was placed down to the right SFA, multiple attempt to cross the lesion that appeared to be heavily calcified and a very short segment with multiple wires, I tried command 18 ST, command 14, connect 250, there was a small perforation with the wire distally. I remove the connect wire and placed the command 18 and remove the straight catheter and used 5 x 100 balloon placed at the distal popliteal ended 2 inflation each for 5 minutes repeat angiogram showed the bleeding has stopped. At that point I did DSA image to the trifurcation then DSA imaging at the level of the foot. Patient had good dorsalis pedis size artery on the right. I am planning to wait for 24 hours then attempt pedal access and attempt to cross the lesion again. FINDINGS: Abdominal aortogram and bifurcation was done just to evaluate the bifurcation which showed normal distal abdominal aorta and bifurcation with no obstructive disease Left lower extremity runoff showed mild to moderate disease diffusely down to the foot, the peroneal artery is a very small artery, the anterior and posterior tibial arteries are normal Right lower extremity runoff showed total occlusion at the popliteal artery just above the tibioperoneal trunk, complex multiple attempt for intervention, the lesion is heavily calcified and resistant, small perforation was noted by the wire that did not cause any complication. He will during the procedure. Angiogram at the distal showed good flow in the posterior tibial artery, slow flow in the anterior tibial artery. CONCLUSIONS: 1. Total occlusion of the right popliteal artery at 1 heavily calcified segment, failed attempt of intervention, I am planning to attempt with pedal access 2. Mild disease in the left lower extremity down to the foot nonobstructive disease DISCUSSION AND RECOMMENDATIONS: I am planning to load the patient with aspirin and Plavix, started on IV fluid and I will attempt for repeat access and intervention through pedal sheath in the posterior tibial artery Anesthesia Type: Conscious Sedation Estimated blood loss (mL): 25 ml Post-Procedure Diagnosis Post-operative diagnosis: Peripheral arterial disease Claudication Hypertension Hyperlipidemia FAISAL EMERSON MD Mar 11, 2021 15:55
[2021-03-11] MEDS ORDERED: PATIENT MAY USE OWN MEDS, ALL PO SCH (16:00)
[2021-03-11] MEDS: GLIMEPIRIDE 2 MG (AMARYL) TAB PO SCH (19:15)
[2021-03-11] MEDS: doxAzosin 2 MG (CARDURA) TAB PO SCH (20:32)
[2021-03-11] MEDS: meTOprolol TARTRATE 50 MG (LOPRESSOR) TAB PO SCH (20:32)
[2021-03-11] MEDS: SIMvastatin 40 MG (ZOCOR) TAB PO SCH (20:32)
[2021-03-12] VITALS (8 sets, daily range): BP systolic 128–159; BP diastolic 59–79
[2021-03-12] MEDS: NS IV 1000 ML 1,000 ML IV SCH ×5 (02:08→22:43)
[2021-03-12] MEDS ORDERED: LIDOCAINE 1% INJ 20 ML 20 ML VIAL ONE ×2 (08:08→16:32)
[2021-03-12] MEDS ORDERED: HEParin (CATH LAB) 2,000 ML IV ONE (08:08)
--- NOTE | 2021-03-12 08:24 | Cardiology Progress Note ---
Subjective Date Seen by Provider: Mar 12, 2021 Time Seen by Provider: 08:22 Subjective/Events-last exam Patient is laying down in bed, feeling well, groin is healing well. No new complaint Review of Systems General: No Chills, No Night Sweats, No Fatigue, No Malaise, No Appetite, No Other HEENT: No Head Aches, No Visual Changes, No Eye Pain, No Ear Pain, No Dysphasi a, No Sinus Congestion, No Post Nasal Drip, No Sore Throat, No Other Pulmonary: No Dyspnea, No Cough, No Pleuritic Chest Pain, No Other Cardiovascular: No: Chest Pain, Palpitations, Orthopnea, Paroxysmal Noc. Dyspnea, Edema, Lt Headedness, Other Objective-Cardiology Exam Last Set of Vital Signs Vital Signs 03/12/21 07:32 Temp 37.3 Pulse 67 Resp 16 B/P (MAP) 159/79 (105) Pulse Ox 96 O2 Delivery Room Air Capillary Refill : Less Than 3 Seconds I&O Intake and Output 03/12/21 00:00 Intake Total 325 ml Output Total 200 ml Balance 125 ml Intake Oral 325 ml Output Urine Total 200 ml Daily Weight Change No General: Alert, Oriented X3, Cooperative HEENT: Atraumatic, PERRLA Neck: Supple, No JVD, No Thyromegaly Lungs: Clear to Auscultation, Normal Air Movement Heart: Regular Rate, Normal S1, Normal S2, No Murmurs Abdomen: Normal Bowel Sounds, Soft, No Tenderness, No Hepatosplenomegaly, No Masses Extremities: No Edema, No Tenderness/Swelling, Other (Absent pulse in the right foot) Skin: No Breakdown, No Significant Lesion Neuro: Normal Gait, Normal Speech, Strength at 5/5 X4 Ext, Normal Tone, Sensation Intact Psych/Mental Status: Mental Status NL, Mood NL Results Lab Laboratory Tests 03/11/21 09:36 A/P-Cardiology Admission Diagnosis Peripheral arterial disease Claudication Hypertension Hyperlipidemia Assessment/Plan Extensive peripheral arterial disease, planning for complex intervention with possible pedal access this afternoon, procedure was explained in length to the patient all pros and cons were explained. If failed will consider referral for vascular surgery Hypertension, monitor blood pressure Hyperlipidemia, continue on statin FAISAL EMERSON MD Mar 12, 2021 8:24 am
[2021-03-12] MEDS: MAGNESIUM OXIDE (MAG-OX)400 MG TAB PO SCH (08:32)
[2021-03-12] MEDS: meTOprolol TARTRATE 50 MG (LOPRESSOR) TAB PO SCH ×2 (08:32→22:43)
[2021-03-12] MEDS: MODAFINIL 100 MG TAB (PROVIGIL) NON-FORMULARY PO SCH (08:32)
[2021-03-12] MEDS: GLIMEPIRIDE 2 MG (AMARYL) TAB PO SCH ×2 (08:32→17:00)
[2021-03-12] MEDS: LOSARTAN 100 MG (COZAAR) TABLET PO SCH (08:32)
[2021-03-12] MEDS ORDERED: NON-FORMULARY MEDICATION 1 EA EA (Canagliflozin (Invokana) 100 MG) PO SCH (09:00)
[2021-03-12] MEDS ORDERED: NON-FORMULARY MEDICATION 1 EA EA (Magnesium Oxide (Magnesium) 400 MG) PO SCH (09:00)
[2021-03-12] MEDS ORDERED: NON-FORMULARY MEDICATION 1 EA EA (Sitagliptin Phosphate (Januvia) 50 MG) PO SCH (09:00)
[2021-03-12] MEDS ORDERED: MIDAZOLAM 5 MG/5 ML (VERSED) VIAL ONE (15:09)
[2021-03-12] MEDS ORDERED: NITRO DRIP 25000 MCG/D5W 0 ML IV ONE (15:10)
[2021-03-12] MEDS ORDERED: HEParin 1000 UNIT/ML (10ML VIAL) FOR BOLUS ONE (15:10)
[2021-03-12] MEDS ORDERED: fentaNYL INJ 100 MCG/2 ML AMP ONE (15:10)
[2021-03-12] MEDS ORDERED: NS IV 1000 ML 1,000 ML ONE (15:57)
--- NOTE | 2021-03-12 17:43 | Peripheral Report ---
Peripheral Report Physician (s)/Mainframe Systems Administrator (s) Physician FAISAL EMERSON MD Pre-Procedure Diagnosis Pre-Procedure Diagnosis: Peripheral arterial disease Post-Procedure Note Procedure Start Date: Mar 12, 2021 Name of Procedure: Unilateral angiogram of the lower extremity Ultrasound-guided sheath placement in the dorsalis pedis of the right lower extremity Additional imaging Third order Multiple attempt for intervention on the chronically occluded popliteal artery Findings/Procedure Note PROCEDURE NOTE: 70 years old gentleman with peripheral arterial disease, has claudication, had an attempt for angioplasty on March 11, 2021 brought for second attempt and possible pedal access. After explaining the procedure to the patient, all pros and cons were explained, all questions were answered. The patient signed the consent and then he was placed on the cardiac catheterization laboratory. The patient was placed on the cardiac catheterization laboratory. Groin was prepped SL fashion local anesthesia was used. Sheath placed in the left femoral artery, a long sheath was placed in the accessing from the left femoral artery to the right common femoral artery, straight catheter was placed down to the popliteal artery angiogram was done then attempt to cross the chronic total occlusion with multiple wires has failed. The next step was ultrasound-guided access to the right dorsalis pedis artery and sheath placement, I advanced mini catheter with command 18 through the poste rior tibial artery to the popliteal artery, multiple attempt for crossing has failed, I have tried using command 18, command 14, connect 250, I tried the backside of the command wire to cross that lesion without success. At the end of the procedure using the mini catheter I did manual injection to evaluate sheath position and the tibioperoneal trunk. 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 Ultrasound-guided placement of 6 [place] slender sheath in the right dorsalis pedis CONCLUSIONS: Failed attempt for intervention on occluded popliteal artery DISCUSSION AND RECOMMENDATIONS: Referral for vascular surgery as an outpatient Anesthesia Type: Conscious Sedation Estimated blood loss (mL): 25 ml Contrast Amount: 40 ml Total Radiation Dose: 143 mGy Post-Procedure Diagnosis Post-operative diagnosis: Claudication Peripheral arterial disease Hypertension Hyperlipidemia FAISAL EMERSON MD Mar 12, 2021 5:43 pm
[2021-03-12] MEDS ORDERED: PATIENT MAY USE OWN MEDS, ALL PO SCH (17:45)
[2021-03-12] MEDS: SIMvastatin 40 MG (ZOCOR) TAB PO SCH (22:43)
[2021-03-12] MEDS: doxAzosin 2 MG (CARDURA) TAB PO SCH (22:43)
[2021-03-13] VITALS: BP 135/62
[2021-03-13] MEDS: NS IV 1000 ML 1,000 ML IV SCH ×2 (03:45→08:42)
[2021-03-13 03:46] LABS: HEMATOCRIT 39 % (40-54); HEMOGLOBIN 12.5 g/dL (13.3-17.7); MEAN CORPUSCULAR HEMOGLOBIN 28 pg (25-34); MEAN CORPUSCULAR HGB CONC 32 g/dL (32-36); MEAN CORPUSCULAR VOLUME 87 fL (80-99); MEAN PLATELET VOLUME 8.7 fL (9.0-12.2); PLATELET COUNT 154 10^3/uL (130-400)
[2021-03-13 04:00] VITALS: BP 142/69
[2021-03-13 04:02] LABS: CHLORIDE 107 MMOL/L (98-107); POTASSIUM 4.2 MMOL/L (3.6-5.0); SODIUM 139 MMOL/L (135-145)
[2021-03-13 04:03] LABS: CALCIUM 9.8 MG/DL (8.5-10.1); GLUCOSE 213 MG/DL (70-105)
[2021-03-13 04:05] LABS: CARBON DIOXIDE 22 MMOL/L (21-32)
[2021-03-13 04:07] LABS: CREATININE SERUM 0.94 MG/DL (0.60-1.30); GFR ESTIMATED > 60
[2021-03-13 04:08] LABS: BUN/CREATININE RATIO 15
[2021-03-13] MEDS ORDERED: METF-399 PO (06:05)
--- NOTE | 2021-03-13 06:06 | Discharge Inst-Post CATH ---
Discharge Inst-CATH/EP Problems Reviewed?: Yes Post Cardiac Cath/EP D/C Inst Follow Up/Plan Hold Metformin for [address] Brewer in 2-4 weeks <b>CARDIAC CATH/EP PROCEDURE DISCHARGE INSTRUCTIONS</b> ACTIVITY * Go Home directly and rest. * Limit activity of the leg (or wrist if it was used) for 7 days including aerobics, swimming, jogging, bicycling, etc. * Restrict stair-climbing for 7 days if possible, if not, climb up with your non-cath leg, then bring together on the same step. * Avoid lifting, pushing, pulling or excessive movement of the affected extremity for 7 days. * Customary sexual activity may be resumed after 2 days-use caution not to use a position that strains or causes pain to the affected extremity. * No driving for 24 hours. * NO SMOKING. * Avoid straining for bowel movements for 7 days. * Gentle walking on level ground is allowed. * Returning to work will depend on the type of procedure and the results. Your doctor will discuss this with you. CALL YOUR DOCTOR FOR ANY OF THE FOLLOWING: *If bleeding from the puncture site occurs- Apply gentle pressure to site with clean cloth and call your doctor or EMS. * If a knot or lump forms under the skin, increases in size, or causes pain. * If bruising appears to be worsening or moving further down your leg instead of disappearing. * Temperature above 101 F. CARE OF YOUR GROIN INCISION; * Bruising or purple discoloration of the skin near the puncture site is common. * You may shower only, no bathtub bathing for 5 days. Be careful to avoid slipping as your leg may feel stiff. * If a closure device was used on your femoral artery, please see the attached guide regarding care of the device and your leg. * Leave dressing on FOR 24 hours. CARE OF YOUR WRIST INCISION; * Bruising or purple discoloration of the skin near the puncture site is common. * You may shower. * DO NOT submerge wrist. * Leave dressing on FOR 24 hours. FAISAL BREWER MD Mar 13, 2021 06:06
[2021-03-13 08:00] VITALS: BP 160/82
--- NOTE | 2021-03-13 08:10 | Cardiology Progress Note ---
Subjective Date Seen by Provider: Mar 13, 2021 Time Seen by Provider: 08:09 Subjective/Events-last exam Patient is laying down in bed, feeling well, no new complaint Review of Systems General: No Chills, No Night Sweats, No Fatigue, No Malaise, No Appetite, No Other HEENT: No Head Aches, No Visual Changes, No Eye Pain, No Ear Pain, No Dysphasia, No Sinus Congestion, No Post Nasal Drip, No Sore Throat, No Other Pulmonary: No Dyspnea, No Cough, No Pleuritic Chest Pain, No Other Cardiovascular: No: Chest Pain, Palpitations, Orthopnea, Paroxysmal Noc. Dyspnea, Edema, Lt Headedness, Other Objective-Cardiology Exam Last Set of Vital Signs Vital Signs 03/13/21 03/13/21 04:00 07:00 Temp 37.1 Pulse 68 Resp 15 B/P (MAP) 142/69 (93) Pulse Ox 96 O2 Delivery Room Air Capillary Refill : Less Than 3 Seconds I&O Intake and Output 03/13/21 00:00 Intake Total 970 ml Output Total 600 ml Balance 370 ml Intake Oral 970 ml Output Urine Total 600 ml # Voids 3 General: Alert, Oriented X3, Cooperative HEENT: Atraumatic, PERRLA Neck: Supple, No JVD, No Thyromegaly Lungs: Clear to Auscultation, Normal Air Movement Heart: Regular Rate, Normal S1, Normal S2, No Murmurs Abdomen: Normal Bowel Sounds, Soft, No Tenderness, No Hepatosplenomegaly, No Masses Extremities: No Edema, No Tenderness/Swelling, Other (Absent pulse in the right foot) Skin: No Breakdown, No Significant Lesion Neuro: Normal Gait, Normal Speech, Strength at 5/5 X4 Ext, Normal Tone, Sensation Intact Psych/Mental Status: Mental Status NL, Mood NL Results Lab Laboratory Tests 03/13/21 03:22 A/P-Cardiology Admission Diagnosis Peripheral arterial disease Claudication Hypertension Hyperlipidemia Assessment/Plan Extensive peripheral arterial disease, multiple attempt to cross the heavily calcified area in the popliteal artery without success. I will continue with medical therapy and refer for vascular surgery evaluation Hypertension, monitor blood pressure Hyperlipidemia, continue on statin FAISAL EMERSON MD Mar 13, 2021 8:10 am
[2021-03-13] MEDS: MAGNESIUM OXIDE (MAG-OX)400 MG TAB PO SCH (08:38)
[2021-03-13] MEDS: meTOprolol TARTRATE 50 MG (LOPRESSOR) TAB PO SCH (08:38)
[2021-03-13] MEDS: GLIMEPIRIDE 2 MG (AMARYL) TAB PO SCH (08:38)
[2021-03-13] MEDS: LOSARTAN 100 MG (COZAAR) TABLET PO SCH (08:39)
[2021-03-13] MEDS: MODAFINIL 100 MG TAB (PROVIGIL) NON-FORMULARY PO SCH (08:39)
== END 2021-03-13 10:42 | disposition home or self-care (01) ==
LOC: CATH 08:36 → CSD 15:05 → CATH 03-13 10:42
PROVIDERS: ATTEND Internal Medicine Cardiovascular Disease
DX: E11.51 Type 2 diabetes mellitus with diabetic peripheral angiopathy without gangrene (principal); I70.211 Atherosclerosis of native arteries of extremities with intermittent claudication, right leg; E11.37X9 Type 2 diabetes mellitus with diabetic macular edema, resolved following treatment, unspecified eye; E66.9 Obesity, unspecified; E78.2 Mixed hyperlipidemia; I10 Essential (primary) hypertension; Z79.82 Long term (current) use of aspirin; Z79.899 Other long term (current) drug therapy; Z79.01 Long term (current) use of anticoagulants; Z87.891 Personal history of nicotine dependence; Z95.4 Presence of other heart-valve replacement; Z68.31 Body mass index [BMI] 31.0-31.9, adult; Z79.84 Long term (current) use of oral hypoglycemic drugs
CPT/HCPCS: 36247 ×2; 36248 ×2; 37224; 71045; 75710; 75716; 80048; 80053; 80061; 85027 ×2; 85347 ×2; 85610; 85730; 87081; C1725; C1760 ×2; C1769 ×9; C1887 ×4; C1894 ×5; 36415